=== PATIENT | female | born 1960 | race Caucasian/White ===

== ENCOUNTER 2022-12-06 07:54 | Outpatient (OUT) | payer MEDICARE, MEDICAID, SELFPAY ==
[2022-12-06 14:51] LABS: Lactate Dehydrogenase 191 U/L (81-234)
[2022-12-06 15:21] LABS: Percent Iron Saturation 13.4 %
[2022-12-07 05:07] LABS: Haptoglobin 102 mg/dL (33-346)
[2022-12-07 15:09] LABS: Hgb A 97.5 % (96.4-98.8); Hgb A2 2.5 % (1.8-3.2)
[2022-12-14] MEDS: HEPARIN SODIUM (PORCINE) PF LOCK FLUSH 500 UNIT/5 ML SYRINGE IV (14:20)
[2023-08-14 13:21] LABS: Reticulocyte Count 1.95 % (0.60-3.10)
== END 2022-12-06 07:55 ==
LOC: INF 07:54
PROVIDERS: PCP Family Medicine; Visit Provider Internal Medicine Hematology & Oncology
DX: E87.1 Hypo-osmolality and hyponatremia (principal); I12.9 Hypertensive chronic kidney disease with stage 1 through stage 4 chronic kidney disease, or unspecified chronic kidney disease; N18.9 Chronic kidney disease, unspecified; D63.1 Anemia in chronic kidney disease
CPT/HCPCS: 36415; 80048; 80053; 82607; 82728; 83010; 83540; 83550; 83615; 83735; 83930; 84100; 85025; 85045; G0463

== ENCOUNTER 2022-12-06 13:25 | Outpatient (REF) | payer MEDICARE, MEDICAID, SELFPAY ==
[2022-12-06 14:52] LABS: Alanine Aminotransferase 25 U/L (14-59); Albumin Globulin Ratio 1.1; Albumin Level 3.9 g/dL (3.4-5.0); Alkaline Phosphatase 139 U/L (46-116); Anion Gap 15.9; Aspartate Amino Transferase 29 U/L (15-37); BUN Creatinine Ratio 22.3; Bilirubin Total 0.3 mg/dL (0.2-1.0); Calcium 8.2 mg/dL (8.5-10.1); Carbon Dioxide 24.6 mmol/L (21.0-32.0); Chloride 94 mmol/L (98-107); Estimated GFR (African America 23 (>=60); Estimated GFR (Non-African Ame 19 (>=60); Globulin 3.5 g/dL; Glucose 90 mg/dL (74-106); Potassium 4.5 mmol/L (3.5-5.1); Sodium 130 mmol/L (136-145); Total Protein 7.4 g/dL (6.4-8.2)
[2022-12-06 14:54] LABS: Basophils Percent Auto 0.4 % (0.2-2.0); Eosinophils Absolute Auto 0.2 10^3/uL (0.0-0.7); Eosinophils Percent Auto 1.8 % (0.9-7.0); Hematocrit 33.2 % (36.0-48.0); Hemoglobin 10.6 g/dL (12.0-16.0); Immature Granulocytes Abs Auto 0.05 10^3/uL (0.00-0.03); Immature Granulocytes Pct Auto 0.5 % (0.0-0.5); Lymphocytes Absolute Auto 1.6 10^3/uL (1.2-3.8); Lymphocytes Percent Auto 16.4 % (20.5-60.0); Mean Corpuscular HGB Conc 31.9 g/dL (29.9-35.2); Mean Corpuscular Hemoglobin 29.5 pg (26.7-34.0); Mean Corpuscular Volume 92.5 fL (81.0-99.0); Mean Platelet Volume 9.4 fL (9.5-13.5); Monocytes Absolute Auto 0.6 10^3/uL (0.3-0.8); Monocytes Percent Auto 5.8 % (1.7-12.0); Neutrophils Absolute Auto 7.4 10^3/uL (1.4-6.5); Neutrophils Percent Auto 75.1 % (43.0-75.0); Platelet Count 302 10^3/uL (150-450); Red Blood Count 3.59 10^6/uL (4.20-5.40); Red Cell Distribution Width 14.7 % (11.0-15.0); White Blood Count 9.8 10^3/uL (4.0-11.0)
[2022-12-07 09:40] LABS: Magnesium 2.2 mg/dL (1.8-2.4)
[2022-12-07 10:10] LABS: Phosphorus 7.5 mg/dL (2.6-4.7)
== END 2022-12-06 13:26 ==
LOC: LAB 13:25
PROVIDERS: PCP Family Medicine; Visit Provider Family Medicine
DX: E87.1 Hypo-osmolality and hyponatremia (principal); D64.9 Anemia, unspecified; I12.9 Hypertensive chronic kidney disease with stage 1 through stage 4 chronic kidney disease, or unspecified chronic kidney disease; N18.9 Chronic kidney disease, unspecified
CPT/HCPCS: 36415; 80053; 85025

== ENCOUNTER 2022-12-08 10:56 | Outpatient (OUT) | payer MEDICARE, MEDICAID, SELFPAY ==
--- NOTE | 2022-12-08 11:21 | PM.CN ---
Consult Note: HPI Data of Consult Patient: known to practice within the last 3 years Consult date: 12/08/22 Requesting Physician: SANTOS ROUSSEAU NP Primary Care Provider: Yuri Godinez MD Consult Narrative Reason for consult: low back pain Narrative: Patient is here for f/u of second dx MBB bilat L4/5, L5/S1 done 11/22/22 . She had 100% relief for several hours after procedure. She would like to proceed with RFA of same area. All meds prescribed and managed through PCP. No new sensorimotor or bowel or bladder issues. No adverse medication SE. Medication regimen assists patient in ability to complete ADLs. JAYLEN-49. We reviewed knee and hip xrays taken since last visit and discussed option to do knee injection. We can explore this after RFA. No radicular sx. cc:: CC: SANTOS ROUSSEAU NP Review of Systems ROS Status of ROS 10 or more systems reviewed and unremarkable except as noted in history and below Musculoskeletal Reports: back pain Exam Constitutional Documenting provider has reviewed patient's vital signs: yes Common normals: no apparent distress, average body habitus, oriented x3, healthy appearing, alert and well nourished General appearance: cooperative, comfortable and well developed Orientation/consciousness: Yes awake, Yes oriented to person and Yes oriented to place HENME Common normals: normocephalic, nasal mucous membranes and turbinates normal and moist oral mucous membranes Respiratory Common normals: normal respiratory effort, no retractions and no use of accessory muscles Effort & inspection: able to speak in complete sentences and symmetric chest movement Back & Pelvis Lumbar spine/lower back: normal to inspection, ROM limited, pain with ROM, paraspinal muscle tenderness and paraspinal muscle spasm Other: positive facet loading bilat muscle strength 4/5 bilat LE with intact sensation Extremity Common normals: normal to inspection, full ROM, normal capillary refill and no pedal edema Assessment and Plan Assessment and Plan (1) Lumbar spondylosis: (2) Muscle spasm: (3) Knee osteoarthritis: Plan thermal bilat RFA L4/5, L5/S1 with sedation aquatic therapy
== END 2022-12-08 10:57 ==
LOC: PM 10:58
PROVIDERS: PCP Family Medicine; Visit Provider Nurse Practitioner
DX: M47.816 Spondylosis without myelopathy or radiculopathy, lumbar region (principal); M62.838 Other muscle spasm; M17.9 Osteoarthritis of knee, unspecified
CPT/HCPCS: G0463

== ENCOUNTER 2022-12-14 13:01 | Outpatient (RCR) | payer MEDICARE, MEDICAID, SELFPAY | END 2023-01-31 17:01 | disposition home or self-care (01) | LOC: PT 13:01 | PROVIDERS: PCP Family Medicine; Visit Provider Nurse Practitioner | DX: M47.816 Spondylosis without myelopathy or radiculopathy, lumbar region (principal) | CPT/HCPCS: 97113; 97163 ==

== ENCOUNTER 2022-12-14 13:30 | Outpatient (RCR) | payer MEDICARE, MEDICAID, SELFPAY ==
[2022-12-01 11:02] LABS: Basophils Percent Auto 0.7 % (0.2-2.0); Eosinophils Absolute Auto 0.2 10^3/uL (0.0-0.7); Hematocrit 32.5 % (36.0-48.0); Hemoglobin 10.5 g/dL (12.0-16.0); Immature Granulocytes Abs Auto 0.02 10^3/uL (0.00-0.03); Immature Granulocytes Pct Auto 0.3 % (0.0-0.5); Lymphocytes Absolute Auto 1.1 10^3/uL (1.2-3.8); Lymphocytes Percent Auto 17.4 % (20.5-60.0); Mean Corpuscular HGB Conc 32.3 g/dL (29.9-35.2); Mean Corpuscular Hemoglobin 29.7 pg (26.7-34.0); Mean Corpuscular Volume 92.1 fL (81.0-99.0); Monocytes Absolute Auto 0.5 10^3/uL (0.3-0.8); Monocytes Percent Auto 8.8 % (1.7-12.0); Neutrophils Absolute Auto 4.2 10^3/uL (1.4-6.5); Neutrophils Percent Auto 69.8 % (43.0-75.0); Platelet Count 343 10^3/uL (150-450); Red Blood Count 3.53 10^6/uL (4.20-5.40); Red Cell Distribution Width 15.4 % (11.0-15.0)
[2022-12-01 11:25] LABS: Alanine Aminotransferase 25 U/L (14-59); Albumin Globulin Ratio 0.9; Albumin Level 3.4 g/dL (3.4-5.0); Alkaline Phosphatase 133 U/L (46-116); Anion Gap 13.5; Aspartate Amino Transferase 28 U/L (15-37); BUN Creatinine Ratio 32.4; Bilirubin Total 0.2 mg/dL (0.2-1.0); Calcium 9.1 mg/dL (8.5-10.1); Carbon Dioxide 28.9 mmol/L (21.0-32.0); Chloride 94 mmol/L (98-107); Estimated GFR (African America 46 (>=60); Estimated GFR (Non-African Ame 38 (>=60); Globulin 3.6 g/dL; Glucose 100 mg/dL (74-106); Potassium 5.4 mmol/L (3.5-5.1); Sodium 131 mmol/L (136-145)
--- NOTE | 2022-12-01 11:48 | PC.NURSE ---
1010: Pt to [facility] amb. per self. Seated in recliner. Denies c/o. Using sterile technique, #19guage Stovall needle used to access right anterior chest port. Pt. c/o immediate pain with flushing. Stovall needle removed. Pt. stated she had a cardiac cath. yesterday and they had issues with it and couldn't access it. Blood drawn peripherally for ordered lab work. Pt. tolerated with no c/o pain or discomfort. 1027: Pt. d/c'd amb to home.
[2022-12-14 14:15] VITALS: BP 131/82; PULSE 89; RESP 16; TEMP 36.9; O2SAT 95
[2022-12-14 15:24] LABS: Alanine Aminotransferase 24 U/L (14-59); Albumin Level 3.5 g/dL (3.4-5.0); Alkaline Phosphatase 129 U/L (46-116); Anion Gap 12.4; Aspartate Amino Transferase 27 U/L (15-37); BUN Creatinine Ratio 41.4; Bilirubin Total 0.3 mg/dL (0.2-1.0); Calcium 9.1 mg/dL (8.5-10.1); Carbon Dioxide 29.4 mmol/L (21.0-32.0); Chloride 93 mmol/L (98-107); Estimated GFR (African America 42 (>=60); Estimated GFR (Non-African Ame 35 (>=60); Globulin 3.4 g/dL; Glucose 87 mg/dL (74-106); Potassium 4.8 mmol/L (3.5-5.1); Sodium 130 mmol/L (136-145); Total Protein 6.9 g/dL (6.4-8.2)
[2022-12-14 15:28] LABS: Basophils Percent Auto 0.3 % (0.2-2.0); Eosinophils Absolute Auto 0.2 10^3/uL (0.0-0.7); Eosinophils Percent Auto 2.4 % (0.9-7.0); Hematocrit 29.5 % (36.0-48.0); Hemoglobin 9.6 g/dL (12.0-16.0); Immature Granulocytes Abs Auto 0.02 10^3/uL (0.00-0.03); Immature Granulocytes Pct Auto 0.3 % (0.0-0.5); Lymphocytes Absolute Auto 1.5 10^3/uL (1.2-3.8); Lymphocytes Percent Auto 23.4 % (20.5-60.0); Mean Corpuscular HGB Conc 32.5 g/dL (29.9-35.2); Mean Corpuscular Hemoglobin 29.4 pg (26.7-34.0); Mean Corpuscular Volume 90.2 fL (81.0-99.0); Mean Platelet Volume 9.8 fL (9.5-13.5); Monocytes Absolute Auto 0.6 10^3/uL (0.3-0.8); Monocytes Percent Auto 8.4 % (1.7-12.0); Neutrophils Absolute Auto 4.3 10^3/uL (1.4-6.5); Neutrophils Percent Auto 65.2 % (43.0-75.0); Platelet Count 224 10^3/uL (150-450); Red Blood Count 3.27 10^6/uL (4.20-5.40); Red Cell Distribution Width 14.3 % (11.0-15.0); White Blood Count 6.6 10^3/uL (4.0-11.0)
--- NOTE | 2022-12-14 16:09 | PC.NURSE ---
1415: Pt. to [facility] amb. per self. Seated in recliner. VSS. Using sterile technique, #19 guage Stovall needle used to access right ant. chest port. Flushes easily with immediate blood return. Blood drawn from port for ordered labs. Flushed with saline and Heparin flush. Port de-accessed. Small amount of bleeding to site. Covered and secured with sterile 2x2. Pt. tolerated with minimal c/o discomfort. 1435: Pt. d/c'd amb. to home.
== END 2022-12-23 23:59 | disposition home or self-care (01) ==
LOC: INF 13:30
PROVIDERS: PCP Family Medicine; Visit Provider Family Medicine
DX: I10 Essential (primary) hypertension (principal); E87.1 Hypo-osmolality and hyponatremia; D64.9 Anemia, unspecified; N28.9 Disorder of kidney and ureter, unspecified
CPT/HCPCS: 36415; 36591; 80053; 82607; 82728; 83010; 83540; 83550; 83615; 83735; 83930; 84100; 85025; 85045

== ENCOUNTER 2022-12-20 07:42 | Outpatient (OUT) | payer MEDICARE, MEDICAID, SELFPAY ==
[2022-12-20] MEDS: HEPARIN SODIUM (PORCINE) PF LOCK FLUSH 500 UNIT/5 ML SYRINGE IV (13:45)
--- NOTE | 2022-12-20 14:14 | PC.NURSE ---
1340: Pt. to [facility] amb. accompanied by . Pt. completed visit with Dr. Rae. Seated in recliner. Using sterile technique, right ant. chest port accessed using #19guage Stovall needle. Flushes easily with immediate blood return. Blood drawn for labs. Port flushed with saline and Heparin. Port de-accessed. Site covered with sterile 2x2 dressing. Pt. tolerated with minimal c/o. 1355: Pt. d/c'd amb to home with .
[2022-12-20 14:15] LABS: Basophils Percent Auto 0.4 % (0.2-2.0); Eosinophils Absolute Auto 0.1 10^3/uL (0.0-0.7); Eosinophils Percent Auto 1.1 % (0.9-7.0); Hematocrit 32.1 % (36.0-48.0); Hemoglobin 10.2 g/dL (12.0-16.0); Immature Granulocytes Abs Auto 0.02 10^3/uL (0.00-0.03); Immature Granulocytes Pct Auto 0.4 % (0.0-0.5); Lymphocytes Absolute Auto 0.9 10^3/uL (1.2-3.8); Lymphocytes Percent Auto 14.9 % (20.5-60.0); Mean Corpuscular HGB Conc 31.8 g/dL (29.9-35.2); Mean Corpuscular Hemoglobin 29.1 pg (26.7-34.0); Mean Corpuscular Volume 91.7 fL (81.0-99.0); Mean Platelet Volume 9.3 fL (9.5-13.5); Monocytes Absolute Auto 0.3 10^3/uL (0.3-0.8); Monocytes Percent Auto 5.6 % (1.7-12.0); Neutrophils Absolute Auto 4.4 10^3/uL (1.4-6.5); Neutrophils Percent Auto 77.6 % (43.0-75.0); Platelet Count 261 10^3/uL (150-450); Red Cell Distribution Width 14.2 % (11.0-15.0); White Blood Count 5.7 10^3/uL (4.0-11.0)
[2022-12-20 15:12] LABS: Alanine Aminotransferase 23 U/L (14-59); Albumin Globulin Ratio 1.1; Albumin Level 3.4 g/dL (3.4-5.0); Alkaline Phosphatase 133 U/L (46-116); Anion Gap 10.9; Aspartate Amino Transferase 26 U/L (15-37); Bilirubin Total 0.3 mg/dL (0.2-1.0); Calcium 8.6 mg/dL (8.5-10.1); Carbon Dioxide 28.6 mmol/L (21.0-32.0); Chloride 96 mmol/L (98-107); Estimated GFR (African America 46 (>=60); Estimated GFR (Non-African Ame 38 (>=60); Globulin 3.2 g/dL; Glucose 99 mg/dL (74-106); Magnesium 1.6 mg/dL (1.8-2.4); Phosphorus 4.7 mg/dL (2.6-4.7); Potassium 4.5 mmol/L (3.5-5.1); Sodium 131 mmol/L (136-145); Total Protein 6.6 g/dL (6.4-8.2)
== END 2022-12-20 07:43 | disposition home or self-care (01) ==
LOC: INF 07:42
PROVIDERS: PCP Family Medicine; Visit Provider Internal Medicine Hematology & Oncology
DX: N18.9 Chronic kidney disease, unspecified (principal); D63.1 Anemia in chronic kidney disease; K90.9 Intestinal malabsorption, unspecified
CPT/HCPCS: 36415; 36591; 80053; 83735; 83930; 84100; 85025; G0463

== ENCOUNTER 2022-12-23 10:01 | Outpatient (OUT) | payer MEDICARE, MEDICAID, SELFPAY ==
--- NOTE | 2022-12-23 | VEIN_ITS ---
[address] [address] Patient Name: JOSE CLEMENTS MRN: [id number] date: 1960 Sex: F Assigned Patient Location: Current Patient Location: Accession/Order Number: [id number] Exam Date: 12/23/2022 10:05 Report Date: 12/23/2022 12:33 At the request of: ANGLE SANTANA Procedure: VC Arterial Scan Lloyd EXAM: VC Arterial Scan Lloyd HISTORY: Localized Edema R60.0 COMPARISON: None. TECHNIQUE: A scale, color and Doppler ultrasound FINDINGS: Region: Bilateral legs Atherosclerosis: None Flow: Normal Wave form: Normal triphasic waveform throughout IMPRESSION: Normal exam. No flow significant stenosis, occlusion or aneurysm observed Electronically authenticated by: CARLOS ALCALA Date: 12/23/2022 12:33
--- NOTE | 2022-12-23 | VEIN_ITS ---
Patient: JOSE CLEMENTS Exam Date: 12/23/2022 : 1960 Gender:F Ordering : DR ANGLE SANTANA . Admission #: [id number] Family : Order #: [id number] CLICK HERE TO VIEW EXAM RADIOLOGY REPORT PROCEDURE: VC EXT VENOUS REFLUX GUMARO LMTD COMPARISON: None. INDICATIONS: Localized Edema R60.0 TECHNIQUE: Duplex imaging of the lower extremity to assess the deep and superficial venous system for the presence of deep or superficial venous incompetence and to document the location and severity of disease. The study includes evaluation of the great saphenous vein (GSV), anterior accessory saphenous vein (AASV) and small saphenous vein (SSV). Patient scanned in reverse Trendelenburg and standing. FINDINGS: RIGHT LOWER EXTREMITY: Saphenofemoral Junction Reflux: Yes 10.2mm 2.1 sec GSV: Diam (mm) Reflux/ Time (sec) Proximal Thigh 8.4 Yes 0.8 Mid Thigh 6.2 Yes 1.3 Distal Thigh 5.1 Yes 0.2 Prox Calf 3.8 Yes 0.3 Mid Calf 0.9 Yes 0.3 Saphenopopliteal Junction Reflux: 1.7mm Yes 0.4 SSV: Proximal Calf 1.1 Yes 0.3 Mid Calf 2.6 Yes 0.2 AASV: Proximal Thigh 5.7 Yes 1.5 Mid Thigh 4.9 Yes 0.3 Distal Thigh Thrombi: No acute or chronic thrombus. Compressibility: Normal. Flow: Moderate deep venous reflux. Preforator: Mid medial lower leg 5.0 mm with 1.3s reflux. Tech Note: Incompetent varicose vein proximal medial lower leg measures 3.4 mm with 0.5s reflux. Proximal posterior calf varicose vein measures 3.1 mm with 0.6s reflux. Varicose vein distal lateral thigh measures 4.0mm with 0.5s reflux. LEFT LOWER EXTREMITY: Saphenofemoral Junction Reflux: Yes 9.4 mm 2.4 sec GSV: Diam (mm) Reflux/Time (sec) Proximal Thigh 7.0 Yes 0.9 Mid Thigh 4.5 Yes 1.0 Distal Thigh 2.9 Yes 2.1 Prox Calf 3.1 Yes 0.4 Mid Calf 2.0 Yes 0.4 Saphenopopliteal Junction Relux: 2.7 mm Yes 0.3 SSV: Proximal Calf 3.2 Yes 0.4 Mid Calf 2.6 Yes 0.3 AASV: Proximal Thigh 6.8 Yes 3.4 Mid Thigh 5.4 Yes 1.4 Distal Thigh Thrombi: No acute or chronic thrombus. Compressibility: Normal. Flow: Mild deep venous reflux. Bank Operations Officer: Distal medial lower leg 2.8 mm without reflux. Tech Note: Incompetent varicose vein mid medial lower leg measures 4.0 mm with 0.5s reflux. Medial knee varicose vein measures 5.3 mm with 1.0s reflux. Medial distal thigh varicose vein measures 5.0mm with 0.8s reflux. Varicose vein mid medial calf 4.3 mm with 1.3s reflux. CONCLUSION: 1. Mild right and moderate left great saphenous vein venous insufficiency with dilatation and saphenofemoral junction reflux 2. Mild right and moderate left anterior accessory saphenous vein venous insufficiency dilatation 3. Moderate right and mild left deep vein reflux 4. 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 Bilateral incompetent varicose veins Dictated by: Rojas Rivera MD on 12/23/2022 at 11:56 Approved by: Rojas Rivera MD on 12/23/2022 at 12:31
== END 2022-12-23 10:02 | disposition home or self-care (01) ==
LOC: VC 10:02
PROVIDERS: PCP Family Medicine; Visit Provider Family Medicine
DX: R60.0 Localized edema (principal); I87.2 Venous insufficiency (chronic) (peripheral); I86.8 Varicose veins of other specified sites
CPT/HCPCS: 93925; 93970

== ENCOUNTER 2022-12-28 14:30 | Outpatient (OUT) | payer MEDICARE, MEDICAID, SELFPAY ==
[2022-12-28 15:35] LABS: Basophils Percent Auto 0.6 % (0.2-2.0); Eosinophils Percent Auto 0.8 % (0.9-7.0); Hemoglobin 9.8 g/dL (12.0-16.0); Immature Granulocytes Abs Auto 0.02 10^3/uL (0.00-0.03); Immature Granulocytes Pct Auto 0.4 % (0.0-0.5); Lymphocytes Percent Auto 20.6 % (20.5-60.0); Mean Corpuscular HGB Conc 32.7 g/dL (29.9-35.2); Mean Corpuscular Hemoglobin 29.6 pg (26.7-34.0); Mean Corpuscular Volume 90.6 fL (81.0-99.0); Mean Platelet Volume 9.2 fL (9.5-13.5); Monocytes Absolute Auto 0.5 10^3/uL (0.3-0.8); Monocytes Percent Auto 9.3 % (1.7-12.0); Neutrophils Absolute Auto 3.4 10^3/uL (1.4-6.5); Neutrophils Percent Auto 68.3 % (43.0-75.0); Platelet Count 263 10^3/uL (150-450); Red Blood Count 3.31 10^6/uL (4.20-5.40); Red Cell Distribution Width 14.1 % (11.0-15.0); White Blood Count 4.9 10^3/uL (4.0-11.0)
[2022-12-28 16:01] LABS: Alanine Aminotransferase 23 U/L (14-59); Albumin Globulin Ratio 1.2; Albumin Level 3.6 g/dL (3.4-5.0); Alkaline Phosphatase 136 U/L (46-116); Anion Gap 9.5; Aspartate Amino Transferase 30 U/L (15-37); BUN Creatinine Ratio 29.3; Bilirubin Total 0.4 mg/dL (0.2-1.0); Calcium 8.6 mg/dL (8.5-10.1); Carbon Dioxide 30.3 mmol/L (21.0-32.0); Chloride 97 mmol/L (98-107); Estimated GFR (African America 46 (>=60); Estimated GFR (Non-African Ame 38 (>=60); Glucose 82 mg/dL (74-106); Potassium 3.8 mmol/L (3.5-5.1); Sodium 133 mmol/L (136-145); Total Protein 6.6 g/dL (6.4-8.2)
[2023-01-18 14:45] VITALS: BP 77/41; PULSE 81; RESP 20; TEMP 36.3; O2SAT 99
[2023-01-18 15:43] LABS: Basophils Percent Auto 0.4 % (0.2-2.0); Eosinophils Absolute Auto 0.2 10^3/uL (0.0-0.7); Eosinophils Percent Auto 2.7 % (0.9-7.0); Hematocrit 28.9 % (36.0-48.0); Hemoglobin 9.4 g/dL (12.0-16.0); Immature Granulocytes Abs Auto 0.03 10^3/uL (0.00-0.03); Immature Granulocytes Pct Auto 0.4 % (0.0-0.5); Lymphocytes Absolute Auto 1.5 10^3/uL (1.2-3.8); Lymphocytes Percent Auto 20.3 % (20.5-60.0); Mean Corpuscular HGB Conc 32.5 g/dL (29.9-35.2); Mean Corpuscular Hemoglobin 30.2 pg (26.7-34.0); Mean Corpuscular Volume 92.9 fL (81.0-99.0); Mean Platelet Volume 9.2 fL (9.5-13.5); Monocytes Absolute Auto 0.7 10^3/uL (0.3-0.8); Monocytes Percent Auto 9.1 % (1.7-12.0); Neutrophils Percent Auto 67.1 % (43.0-75.0); Platelet Count 236 10^3/uL (150-450); Red Blood Count 3.11 10^6/uL (4.20-5.40); Red Cell Distribution Width 14.5 % (11.0-15.0); White Blood Count 7.5 10^3/uL (4.0-11.0)
[2023-01-18] MEDS: HEPARIN SODIUM (PORCINE) PF LOCK FLUSH 500 UNIT/5 ML SYRINGE INJ (16:01)
[2023-01-18 16:05] LABS: Alanine Aminotransferase 21 U/L (14-59); Albumin Globulin Ratio 1.1; Albumin Level 3.3 g/dL (3.4-5.0); Alkaline Phosphatase 104 U/L (46-116); Anion Gap 10.4; Aspartate Amino Transferase 27 U/L (15-37); BUN Creatinine Ratio 27.9; Bilirubin Total 0.4 mg/dL (0.2-1.0); Calcium 8.8 mg/dL (8.5-10.1); Carbon Dioxide 30.5 mmol/L (21.0-32.0); Chloride 92 mmol/L (98-107); Estimated GFR (African America 28 (>=60); Estimated GFR (Non-African Ame 23 (>=60); Globulin 2.9 g/dL; Glucose 114 mg/dL (74-106); Potassium 4.9 mmol/L (3.5-5.1); Sodium 128 mmol/L (136-145); Total Protein 6.2 g/dL (6.4-8.2)
[2023-01-20 11:14] LABS: Calcium, Ionized, Serum 4.9 mg/dL (4.5-5.6)
== END 2022-12-28 15:30 | disposition home or self-care (01) ==
PROVIDERS: PCP Family Medicine; Visit Provider Family Medicine
DX: I12.9 Hypertensive chronic kidney disease with stage 1 through stage 4 chronic kidney disease, or unspecified chronic kidney disease (principal); N18.9 Chronic kidney disease, unspecified; E87.1 Hypo-osmolality and hyponatremia; D50.9 Iron deficiency anemia, unspecified; K90.9 Intestinal malabsorption, unspecified; D63.1 Anemia in chronic kidney disease; Z79.899 Other long term (current) drug therapy; R25.2 Cramp and spasm
CPT/HCPCS: 36415; 36591; 80053; 83930; 85025; 96366; Q0138

== ENCOUNTER 2023-01-11 14:30 | Outpatient (RCR) | payer MEDICARE, MEDICAID, SELFPAY ==
[2023-01-04 14:35] VITALS: BP 166/108; PULSE 79; RESP 18; TEMP 36.3; O2SAT 98
[2023-01-04] MEDS: HEPARIN SODIUM (PORCINE) PF LOCK FLUSH 500 UNIT/5 ML SYRINGE IV (14:58)
[2023-01-04] MEDS: FERUMOXYTOL 510 MG in 0.9 % SODIUM CHLORIDE 100 ML 234 MG IV (14:58)
[2023-01-04 15:32] LABS: Alanine Aminotransferase 24 U/L (14-59); Albumin Globulin Ratio 1.2; Albumin Level 3.5 g/dL (3.4-5.0); Alkaline Phosphatase 133 U/L (46-116); Anion Gap 11.6; Aspartate Amino Transferase 28 U/L (15-37); BUN Creatinine Ratio 20.4; Bilirubin Total 0.3 mg/dL (0.2-1.0); Calcium 8.1 mg/dL (8.5-10.1); Carbon Dioxide 26.9 mmol/L (21.0-32.0); Chloride 93 mmol/L (98-107); Estimated GFR (African America 38 (>=60); Estimated GFR (Non-African Ame 31 (>=60); Glucose 89 mg/dL (74-106); Potassium 4.5 mmol/L (3.5-5.1); Sodium 127 mmol/L (136-145); Total Protein 6.5 g/dL (6.4-8.2)
[2023-01-04 15:43] LABS: Basophils Percent Auto 0.2 % (0.2-2.0); Eosinophils Absolute Auto 0.1 10^3/uL (0.0-0.7); Hematocrit 29.8 % (36.0-48.0); Hemoglobin 9.7 g/dL (12.0-16.0); Immature Granulocytes Abs Auto 0.01 10^3/uL (0.00-0.03); Immature Granulocytes Pct Auto 0.2 % (0.0-0.5); Lymphocytes Absolute Auto 1.5 10^3/uL (1.2-3.8); Lymphocytes Percent Auto 27.6 % (20.5-60.0); Mean Corpuscular HGB Conc 32.6 g/dL (29.9-35.2); Mean Corpuscular Hemoglobin 29.7 pg (26.7-34.0); Mean Corpuscular Volume 91.1 fL (81.0-99.0); Mean Platelet Volume 9.3 fL (9.5-13.5); Monocytes Absolute Auto 0.4 10^3/uL (0.3-0.8); Monocytes Percent Auto 7.8 % (1.7-12.0); Neutrophils Absolute Auto 3.4 10^3/uL (1.4-6.5); Neutrophils Percent Auto 62.2 % (43.0-75.0); Platelet Count 290 10^3/uL (150-450); Red Blood Count 3.27 10^6/uL (4.20-5.40); Red Cell Distribution Width 13.6 % (11.0-15.0); White Blood Count 5.5 10^3/uL (4.0-11.0)
--- NOTE | 2023-01-04 16:08 | PC.NURSE ---
1435: Pt. to [facility] amb. for blood draw and IV iron infusion. VSS. Right ant. chest port accessed with #19 gauge Stovall needle without difficulty. Able to aspirate blood and flushes easily. Blood drawn for labs. IV Feraheme 510mg initiated at this time. Pt. without c/o or needs. 1450: Pt. without change. Denies needs. 1535: IV Feraheme completed. Port flushed with saline and Heparin. Port de-accessed. No bleeding to site. Pt. without s&s of adverse reaction or c/o. Pt. d/c'd amb. to home.
[2023-01-05 12:09] LABS: Calcium, Ionized, Serum 4.5 mg/dL (4.5-5.6)
[2023-01-11] MEDS: FERUMOXYTOL 510 MG in 0.9 % SODIUM CHLORIDE 100 ML 234 MG IV (15:08)
[2023-01-11 15:11] LABS: Basophils Absolute Auto 0.1 10^3/uL (0.0-0.1); Basophils Percent Auto 0.7 % (0.2-2.0); Eosinophils Absolute Auto 0.1 10^3/uL (0.0-0.7); Eosinophils Percent Auto 0.9 % (0.9-7.0); Hematocrit 32.7 % (36.0-48.0); Hemoglobin 10.8 g/dL (12.0-16.0); Immature Granulocytes Abs Auto 0.09 10^3/uL (0.00-0.03); Immature Granulocytes Pct Auto 0.9 % (0.0-0.5); Lymphocytes Absolute Auto 3.4 10^3/uL (1.2-3.8); Lymphocytes Percent Auto 33.4 % (20.5-60.0); Mean Corpuscular Volume 90.8 fL (81.0-99.0); Mean Platelet Volume 8.9 fL (9.5-13.5); Monocytes Absolute Auto 0.7 10^3/uL (0.3-0.8); Monocytes Percent Auto 7.1 % (1.7-12.0); Neutrophils Absolute Auto 5.8 10^3/uL (1.4-6.5); Platelet Count 304 10^3/uL (150-450); Red Cell Distribution Width 13.9 % (11.0-15.0); White Blood Count 10.2 10^3/uL (4.0-11.0)
--- NOTE | 2023-01-11 15:18 | PC.NURSE ---
Port a cath intact l=rt anterior chest, accessed using sterile techniqe, excellent bloodreturn obtained. tolerated well.
[2023-01-11 15:28] VITALS: BP 151/89; PULSE 87; RESP 16; TEMP 36.6; O2SAT 98
[2023-01-11] MEDS: HEPARIN SODIUM (PORCINE) PF LOCK FLUSH 500 UNIT/5 ML SYRINGE IV (15:42)
[2023-01-11 15:50] LABS: Alanine Aminotransferase 24 U/L (14-59); Albumin Globulin Ratio 1.3; Alkaline Phosphatase 113 U/L (46-116); Anion Gap 12.9; Aspartate Amino Transferase 33 U/L (15-37); BUN Creatinine Ratio 23.1; Bilirubin Total 0.4 mg/dL (0.2-1.0); Calcium 9.3 mg/dL (8.5-10.1); Carbon Dioxide 28.8 mmol/L (21.0-32.0); Chloride 92 mmol/L (98-107); Estimated GFR (African America 45 (>=60); Estimated GFR (Non-African Ame 37 (>=60); Globulin 3.1 g/dL; Glucose 96 mg/dL (74-106); Potassium 3.7 mmol/L (3.5-5.1); Sodium 130 mmol/L (136-145); Total Protein 7.1 g/dL (6.4-8.2)
== END 2023-01-23 23:59 | disposition home or self-care (01) ==
LOC: INF 14:30
PROVIDERS: PCP Family Medicine; Visit Provider Internal Medicine Hematology & Oncology
DX: Z79.899 Other long term (current) drug therapy (principal); I10 Essential (primary) hypertension; E87.1 Hypo-osmolality and hyponatremia; D64.9 Anemia, unspecified; N28.9 Disorder of kidney and ureter, unspecified; R25.2 Cramp and spasm
CPT/HCPCS: 36415; 36591; 80053; 82330; 83930; 85025; 96365; 96374; Q0138

== ENCOUNTER 2023-01-16 13:10 | Outpatient (RCR) | payer MEDICARE, MEDICAID, SELFPAY | END 2023-01-31 17:00 | disposition home or self-care (01) | LOC: OT 13:10 | PROVIDERS: PCP Family Medicine; Visit Provider Family Medicine | DX: I89.0 Lymphedema, not elsewhere classified (principal) | CPT/HCPCS: 97140; 97166; 97530 ==

== ENCOUNTER 2023-01-23 14:35 | Observation (INO) | payer MEDICARE, MEDICAID, SELFPAY ==
[2023-01-23] VITALS (31 sets, daily range): BP systolic 90–125; BP diastolic 39–77; PULSE 62–91; RESP 10–22; TEMP 36.4–36.6; O2SAT 55–100; BMI 34.6; BMI 33.8
--- NOTE | 2023-01-23 15:13 | ECG_ITS ---
The [facility] Test Date: 2023-01-23 Pat Name: JOSE CLEMENTS Department: Room: - Gender: Female Slinger Sequins: : 1960 Requested By: ANGLE SANTANA Order Number: [id number] Reading MD: ANGLE SANTANA Measurements Intervals [place] Rate: 82 P: 60 NH: 166 QRS: 17 QRSD: 94 T: 47 QT: 354 QTc: 392 Interpretive Statements 1100 Sinus rhythm 9110 normal ECG No previous ECG available for comparison Electronically Signed On 01-24-2023 5:20:04 EDT by ANGLE SANTANA
--- NOTE | 2023-01-23 15:58 | ECG_ITS ---
The [facility] Test Date: 2023-01-23 Pat Name: JOSE CLEMENTS Department: Room: - Gender: Female Occupational Therapist Aide: : 1960 Requested By: ANGLE SANTANA Order Number: [id number] Reading MD: ANGLE SANTANA Measurements Intervals [place] Rate: 67 P: 56 OK: 170 QRS: 12 QRSD: 100 T: 31 QT: 394 QTc: 409 Interpretive Statements 1100 Sinus rhythm 5222 Moderate voltage criteria for LVH, may be normal variant 9130 borderline ECG Compared to ECG 01/23/2023 15:06:53 Left ventricular hypertrophy now present Electronically Signed On 01-24-2023 5:20:13 EDT by ANGLE SANTANA
--- NOTE | 2023-01-23 16:00 | ED_ITS ---
HPI - General Adult General Chief complaint: Shortness of Breath/Dyspnea Stated complaint: FLUID OVERLOAD-38 LBS. Time Seen by Provider: 01/23/23 15:58 Source: patient Mode of arrival: Wheelchair Limitations: no limitations History of Present Illness HPI narrative: Patient is a 62-year-old female who is presenting with her with chief complaint Of shortness of breath, chest pain/tightness, and fluid overload. Patient states that she's gained approximately 30 pounds in last 2-3 weeks. 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 Llanes. Patient's PCP is Dr. Godinez. Patient's sales strategy manager is Dr. Malcolm. Patient's mother has recently , in this past weekend patient was taking care to 3 small children at home as well. Patient has been on Bumex, doses have been doubled, but is not helping with patient's fluid overload. Patient is stage IV kidney failure, patient most likely will be starting dialysis soon, she does not have a fistula. Patient does have a port to her right upper chest wall. Patient has no fever or chills. Patient main concern is of fluid overload. Patient was told to come to the Emergency Room by Dr. Godinez office to be evaluated, and diuresed with admission to the hospital. Patient has no abdominal pain, nausea or vomiting. Patient states that she cannot put her shoes on any longer, and is starting to have a hard time walking around at home and functioning with activities of daily living secondary to the fluid overload. is at bedside. This has happened to the patient in the past. This is acute on chronic peripheral edema and lymphedema. . All systems are negative except as noted/marked. All systems reviewed and otherwise negative. . Nurses note and vital signs reviewed and patient is not hypoxic. General: The patient appears well and in no apparent distress. Patient is resting uncomfortably on cart. Patient is not toxic, lethargic, or listless Skin: Warm, dry, no pallor noted. There is no rash noted. No petechiae, purpura. Head: Normocephalic, atraumatic Eye: Normal conjunctiva, no drainage, EOMI. PERRL Ears, Nose, Mouth, and Throat: oral mucosa is moist. Nares patent. Mouth without vesicles. Cardiovascular: Regular Rate and Rhythm, no murmur, gallop, rub, No crackles or rales were noted to patient's lung bases or throughout lung nguyen. Respiratory: Patient is in no distress, no accessory muscle use, lungs are clear to auscultation, no wheezing, rales or rhonchi Back: non-tender, no CVA tenderness bilaterally to percussion. No CT LS midline pain GI: soft, Obese,no tenderness to palpation, no masses appreciated. No rebound, guarding, or rigidity noted. No flank pain bilateral, No distention Musculoskeletal: Patient has full range of motion of all of the extremities, no motor, sensory, or focal neurological deficits. 4+ pitting edema to bilateral lower extremities, no significant signs of venous stasis or cellulitis. No unilateral swelling. Patient states her lower extremities are twice if not 3 times the size they normally are secondary to leg swelling. Neurological: A&O x3, normal speech Psychiatric: Cooperative Related Data Home Medications Medication Instructions Recorded Confirmed alprazolam 0.5 mg tablet 0.5 mg PO BID 12/08/22 01/23/23 amitriptyline 150 mg tablet 150 mg PO BEDTIME 12/08/22 01/23/23 calcium acetate(phosphat bind) 667 667 mg PO BID 12/08/22 01/23/23 mg capsule fentanyl 100 mcg/hr transdermal 1 patch transdermal Q72H 12/08/22 01/23/23 patch levothyroxine 100 mcg tablet 100 mcg PO DAILY 12/08/22 01/23/23 linaclotide 290 mcg capsule 290 mcg PO DAILY 12/08/22 01/23/23 (Linzess) liothyronine 25 mcg tablet 25 mcg PO DAILY 12/08/22 01/23/23 metoclopramide HCl 10 mg tablet 10 mg PO QID PRN nausea and 12/08/22 01/23/23 vomiting metoprolol tartrate 50 mg tablet 50 mg PO BID 12/08/22 01/23/23 (Lopressor) ondansetron HCl 4 mg tablet 4 mg PO TID-QID PRN nausea and 12/08/22 01/23/23 vomiting oxycodone-acetaminophen 5 mg-325 1 tab PO Q6H 12/08/22 01/23/23 mg tablet pantoprazole 40 mg tablet,delayed 40 mg PO BID 12/08/22 01/23/23 release primidone 50 mg tablet 100 mg PO BEDTIME 12/08/22 01/23/23 tizanidine 4 mg tablet (Zanaflex) 4 mg PO Q8H 12/08/22 01/23/23 aripiprazole 2 mg tablet (Abilify) 2 mg PO DAILY 01/23/23 01/23/23 bumetanide 1 mg tablet 2 mg PO QDAY 01/23/23 01/23/23 duloxetine 60 mg capsule,delayed 120 mg PO DAILY 01/23/23 01/23/23 release (Cymbalta) loratadine 10 mg tablet (Claritin) 10 mg PO DAILY 01/23/23 01/23/23 sacubitril 97 mg-valsartan 103 mg 1 tab PO BID 01/23/23 01/23/23 tablet (Entresto) Allergies Allergy/AdvReac Type Severity Reaction Status Date / Time povidone-iodine Allergy Intermediate Verified 01/23/23 16:14 [From Betadine] amoxicillin [From Augmentin] Allergy Mild Vomiting Verified 01/23/23 16:14 clavulanic acid Allergy Mild Vomiting Verified 01/23/23 16:14 [From Augmentin] Sulfa (Sulfonamide Allergy Mild Vomiting Verified 01/23/23 16:14 Antibiotics) ciprofloxacin [From Cipro] Allergy Unknown Verified 01/23/23 16:14 [facility] Medical History (Updated 01/23/23 @ 18:47 by Baljinder Meek MD) Surgical History (Updated 01/18/23 @ 11:23 by Chayito Wilson RN) Family History (Updated 01/23/23 @ 18:44 by Audrey Booker) Father Family history of CHF (congestive heart failure) Family history of diabetes mellitus Family history of hypertension Family history of myocardial infarction Family history of stroke Mother Family history of CHF (congestive heart failure) Family history of COPD (chronic obstructive pulmonary disease) Family history of diabetes mellitus Family history of hypertension Family history of myocardial infarction Family history of stroke Social History (Updated 01/23/23 @ 18:46 by Audrey Booker) Within the past year, how often did you have a drink containing alcohol: never Within the past year, how often did you have six or more drinks on one occasion: never Score interpretation: A score less than 3 is consistent with normal alcohol consumption. 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 Highest level of school completed/degree received: some college, no degree Are you now , , , , never or living with a partner: In a typical week, how many times do you talk on the telephone with family, friends, or neighbors: 3 or more times per week How often do you get together with friends or relatives: twice per week How often do you attend anabaptist or mormon services: 4 or more times per year Do you belong to any clubs or organizations such as anabaptist groups unions, [facility] or athletic groups, or school groups: no Total score: 3 Score interpretation: A score of greater than or equal to 2 indicates the lowest level of social isolation. Little interest or pleasure in doing things: not at all Feeling down, depressed, or hopeless: several days Feel stressed/tense/nervous/anxious/difficulty sleeping: to some extent Life stressors: recent of family or friend Do you think of yourself as: straight/heterosexual Gender Identity: female Exam Constitutional Vital Signs, click to edit/add: Last Vital Signs Temp 97.5 F L 01/23/23 18:49 Pulse 71 01/23/23 18:49 Resp 18 01/23/23 18:49 BP 116/77 01/23/23 18:49 Pulse Ox 97 01/23/23 18:49 O2 Del Method Room Air 01/23/23 18:49 Course Vital Signs Vital signs: Vital Signs Temperature 97.8 F 01/23/23 15:00 Pulse Rate 91 H 01/23/23 15:00 Respiratory Rate 20 01/23/23 15:00 Blood Pressure 96/70 01/23/23 15:00 Pulse Oximetry 97 01/23/23 15:00 Oxygen Delivery Method Room Air 01/23/23 15:00 Temperature 97.5 F L 01/23/23 18:49 Pulse Rate 71 01/23/23 18:49 Respiratory Rate 18 01/23/23 18:49 Blood Pressure 116/77 01/23/23 18:49 Pulse Oximetry 97 01/23/23 18:49 Oxygen Delivery Method Room Air 01/23/23 18:49 Medical Decision Making MDM Narrative Medical decision making narrative: Patient was given one dose of IV Lasix 40 mg in the Emergency Room. Patient was sent to the Emergency Room for admission purposes to help diurese the next 2 or 3 days. Patient states that she's gained 30 pounds of water weight in the past 2 or 3 weeks. Patient has known stage IV kidney failure. Patient's. And creatinine are elevated slightly more than normal baseline. Patient's EKG and chest x-ray showed no significant findings. Patient will be admitted for diuresis. Dr. Godinez came in this evening to see the patient in the inpatient floor at approximately 5:30 PM. Lab Data Lab results reviewed: Yes I reviewed the patient's lab results Labs: Lab Results 01/23/23 Range/Units 15:50 WBC 5.6 (4.0-11.0) 10^3/uL RBC 3.07 L (4.20-5.40) 10^6/uL Hgb 9.3 L (12.0-16.0) g/dL Hct 28.9 L (36.0-48.0) % MCV 94.1 (81.0-99.0) fL MCH 30.3 (26.7-34.0) pg MCHC 32.2 (29.9-35.2) g/dL RDW 14.7 (11.0-15.0) % Plt Count 276 (150-450) 10^3/uL MPV 9.0 L (9.5-13.5) fL Neut % (Auto) 62.6 (43.0-75.0) % Lymph % (Auto) 23.5 (20.5-60.0) % [place] % (Auto) 9.9 (1.7-12.0) % Eos % (Auto) 3.1 (0.9-7.0) % Baso % (Auto) 0.5 (0.2-2.0) % Neut # (Auto) 3.5 (1.4-6.5) 10^3/uL Lymph # (Auto) 1.3 (1.2-3.8) 10^3/uL [place] # (Auto) 0.6 (0.3-0.8) 10^3/uL Eos # (Auto) 0.2 (0.0-0.7) 10^3/uL Baso # (Auto) 0.0 (0.0-0.1) 10^3/uL Abs Immat Gran (auto) 0.02 (0.00-0.03) 10^3/uL Imm/Tot Granulo (auto) 0.4 (0.0-0.5) % PT 9.8 (9.0-11.6) sec INR <0.93 APTT 33.0 (22.3-36.2) sec Sodium 125 L (136-145) mmol/L Potassium 4.7 (3.5-5.1) mmol/L Chloride 91 L (98-107) mmol/L Carbon Dioxide 31.1 (21.0-32.0) mmol/L Anion Gap 7.6 BUN 67.0 H (7.0-18.0) mg/dL Creatinine 2.28 H (0.55-1.02) mg/dL Est GFR ( Amer) 26 L (>=60) Est GFR (Non-Af Amer) 22 L (>=60) BUN/Creatinine Ratio 29.4 Glucose 99 (74-106) mg/dL Lactate 0.5 (0.4-2.0) mmol/L Calcium 8.9 (8.5-10.1) mg/dL Total Bilirubin 0.3 (0.2-1.0) mg/dL AST 44 H (15-37) U/L ALT 25 (14-59) U/L Alkaline Phosphatase 110 (46-116) U/L NT-Pro-B Natriuret Pep 840.0 (<=900.0) pg/mL Total Protein 6.4 (6.4-8.2) g/dL Albumin 3.3 L (3.4-5.0) g/dL Globulin 3.1 g/dL Albumin/Globulin Ratio 1.1 Imaging Data Chest x-ray: Radiologist's impression: EXAM: XR chest 1V HISTORY:. shortness of breath . COMPARISON: 11/16/2022 TECHNIQUE: Single view of the chest FINDINGS: Heart and vascularity are unremarkable. Lungs are free of focal infiltrates. Infusion catheter is noted with the tip overlying the superior vena cava. There is linear atelectasis in the left lower lobe. IMPRESSION: [address] 2. No infiltrates noted. 3. Minimal platelike atelectasis in the left lung base ECG Data Attestation: I personally reviewed and interpreted this ECG as follows: Interpretation: EKG #1. Normal sinus rhythm at 82 beats a minute. Normal axis deviation. No acute ST elevation, no acute ectopy. QTC of 392. EKG #2. Normal sinus rhythm at 65 beats a minute. Normal axis deviation. No acute ST elevation, no acute ectopy. QTC of 416. Discharge Plan Discharge Chief Complaint: Shortness of Breath/Dyspnea Clinical Impression: Edema of lower leg due to peripheral venous insufficiency, Dyspnea, Chest pain Patient Disposition: Admitted As Inpatient Condition: Good Discharge Date/Time: 01/23/23 18:45
--- NOTE | 2023-01-23 16:14 | XR_ITS ---
The [address] [address] Patient Name: JOSE CLEMENTS MRN: [id number] date: 1960 Sex: F Assigned Patient Location: ER Current Patient Location: ER Accession/Order Number: [id number] Exam Date: 01/23/2023 16:35 Report Date: 01/23/2023 17:11 At the request of: ELSA HUGHES Procedure: XR chest 1V EXAM: XR chest 1V HISTORY:. shortness of breath . COMPARISON: 11/16/2022 TECHNIQUE: Single view of the chest FINDINGS: Heart and vascularity are unremarkable. Lungs are free of focal infiltrates. Infusion catheter is noted with the tip overlying the superior vena cava. There is linear atelectasis in the left lower lobe. XR/XR chest 1V IMPRESSION: [address] 2. No infiltrates noted. 3. Minimal platelike atelectasis in the left lung base. Electronically authenticated by: CARLOS PANDA Date: 01/23/2023 17:11
--- NOTE | 2023-01-23 16:14 | ECG_ITS ---
The [facility] Test Date: 2023-01-23 Pat Name: JOSE CLEMENTS Department: Room: - Gender: Female Supervisor Of Research: : 1960 Requested By: ANGLE SANTANA Order Number: [id number] Reading MD: ANGLE SANTANA Measurements Intervals [place] Rate: 65 P: 65 ID: [id number] QRS: 32 QRSD: 102 T: 51 QT: 404 QTc: 416 Interpretive Statements 1100 Sinus rhythm 9110 normal ECG Compared to ECG 01/23/2023 15:40:12 Left ventricular hypertrophy no longer present Electronically Signed On 01-24-2023 5:20:19 EDT by ANGLE SANTANA
[2023-01-23 16:25] LABS: Basophils Percent Auto 0.5 % (0.2-2.0); Eosinophils Absolute Auto 0.2 10^3/uL (0.0-0.7); Eosinophils Percent Auto 3.1 % (0.9-7.0); Hematocrit 28.9 % (36.0-48.0); Hemoglobin 9.3 g/dL (12.0-16.0); Immature Granulocytes Abs Auto 0.02 10^3/uL (0.00-0.03); Immature Granulocytes Pct Auto 0.4 % (0.0-0.5); Lymphocytes Absolute Auto 1.3 10^3/uL (1.2-3.8); Lymphocytes Percent Auto 23.5 % (20.5-60.0); Mean Corpuscular HGB Conc 32.2 g/dL (29.9-35.2); Mean Corpuscular Hemoglobin 30.3 pg (26.7-34.0); Mean Corpuscular Volume 94.1 fL (81.0-99.0); Monocytes Absolute Auto 0.6 10^3/uL (0.3-0.8); Monocytes Percent Auto 9.9 % (1.7-12.0); Neutrophils Absolute Auto 3.5 10^3/uL (1.4-6.5); Neutrophils Percent Auto 62.6 % (43.0-75.0); Platelet Count 276 10^3/uL (150-450); Red Blood Count 3.07 10^6/uL (4.20-5.40); Red Cell Distribution Width 14.7 % (11.0-15.0); White Blood Count 5.6 10^3/uL (4.0-11.0)
[2023-01-23 16:32] LABS: Alanine Aminotransferase 25 U/L (14-59); Albumin Globulin Ratio 1.1; Albumin Level 3.3 g/dL (3.4-5.0); Alkaline Phosphatase 110 U/L (46-116); Anion Gap 7.6; Aspartate Amino Transferase 44 U/L (15-37); BUN Creatinine Ratio 29.4; Bilirubin Total 0.3 mg/dL (0.2-1.0); Calcium 8.9 mg/dL (8.5-10.1); Carbon Dioxide 31.1 mmol/L (21.0-32.0); Chloride 91 mmol/L (98-107); Estimated GFR (African America 26 (>=60); Estimated GFR (Non-African Ame 22 (>=60); Globulin 3.1 g/dL; Glucose 99 mg/dL (74-106); Potassium 4.7 mmol/L (3.5-5.1); Sodium 125 mmol/L (136-145); Total Protein 6.4 g/dL (6.4-8.2)
[2023-01-23 16:33] LABS: Prothrombin Time 9.8 sec (9.0-11.6)
[2023-01-23 16:37] LABS: INR <0.93
[2023-01-23 16:46] LABS: Lactate/Lactic Acid 0.5 mmol/L (0.4-2.0)
[2023-01-23] MEDS: FUROSEMIDE 40 MG/4 ML VIAL IVP (17:24)
[2023-01-23] MEDS: ACETAMINOPHEN 500 MG TABLET 1000 MG PO (18:21)
--- NOTE | 2023-01-23 19:24 | P.HP_ITS ---
H&P: HPI History of Present Illness Chief complaint: FLUID OVERLOAD-38 LBS., SOB Narrative: Creasing weakness and shortness of breath secondary to significant weight gain secondary to fluid overload. Patient presented to the emergency room with significant hyponatremia which she has had in the past when she has had her water intoxication. uncertain of following diet recommendations. Patient admitted for treatment. [facility] Medical History (Updated 01/23/23 @ 18:47 by Baljinder Meek MD) Surgical History (Updated 01/18/23 @ 11:23 by Chayito Wilson RN) Family History (Updated 01/23/23 @ 18:44 by Audrey Booker) Father Family history of CHF (congestive heart failure) Family history of diabetes mellitus Family history of hypertension Family history of myocardial infarction Family history of stroke Mother Family history of CHF (congestive heart failure) Family history of COPD (chronic obstructive pulmonary disease) Family history of diabetes mellitus Family history of hypertension Family history of myocardial infarction Family history of stroke Social History (Updated 01/23/23 @ 18:46 by Audrey Booker) Within the past year, how often did you have a drink containing alcohol: never Within the past year, how often did you have six or more drinks on one occasion: never Score interpretation: A score less than 3 is consistent with normal alcohol consumption. 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 Highest level of school completed/degree received: some college, no degree Are you now , , , , never or living with a partner: In a typical week, how many times do you talk on the telephone with family, friends, or neighbors: 3 or more times per week How often do you get together with friends or relatives: twice per week How often do you attend worship or muslim services: 4 or more times per year Do you belong to any clubs or organizations such as worship groups unions, fraternal or athletic groups, or school groups: no Total score: 3 Score interpretation: A score of greater than or equal to 2 indicates the lowest level of social isolation. Little interest or pleasure in doing things: not at all Feeling down, depressed, or hopeless: several days Feel stressed/tense/nervous/anxious/difficulty sleeping: to some extent Life stressors: recent of family or friend Do you think of yourself as: straight/heterosexual Gender Identity: female Meds Home Medications and Allergies Home Medications Medication Instructions Recorded Confirmed Type alprazolam 0.5 mg tablet 0.5 mg PO BID 12/08/22 01/23/23 History amitriptyline 150 mg tablet 150 mg PO BEDTIME 12/08/22 01/23/23 History calcium acetate(phosphat bind) 667 667 mg PO BID 12/08/22 01/23/23 History mg capsule fentanyl 100 mcg/hr transdermal 1 patch transdermal Q72H 12/08/22 01/23/23 History patch levothyroxine 100 mcg tablet 100 mcg PO DAILY 12/08/22 01/23/23 History linaclotide 290 mcg capsule 290 mcg PO DAILY 12/08/22 01/23/23 History (Linzess) liothyronine 25 mcg tablet 25 mcg PO DAILY 12/08/22 01/23/23 History metoclopramide HCl 10 mg tablet 10 mg PO QID PRN nausea and 12/08/22 01/23/23 History vomiting metoprolol tartrate 50 mg tablet 50 mg PO BID 12/08/22 01/23/23 History (Lopressor) ondansetron HCl 4 mg tablet 4 mg PO TID-QID PRN nausea and 12/08/22 01/23/23 History vomiting oxycodone-acetaminophen 5 mg-325 1 tab PO Q6H 12/08/22 01/23/23 History mg tablet pantoprazole 40 mg tablet,delayed 40 mg PO BID 12/08/22 01/23/23 History release primidone 50 mg tablet 100 mg PO BEDTIME 12/08/22 01/23/23 History tizanidine 4 mg tablet (Zanaflex) 4 mg PO Q8H 12/08/22 01/23/23 History aripiprazole 2 mg tablet (Abilify) 2 mg PO DAILY 01/23/23 01/23/23 History bumetanide 1 mg tablet 2 mg PO QDAY 01/23/23 01/23/23 History duloxetine 60 mg capsule,delayed 120 mg PO DAILY 01/23/23 01/23/23 History release (Cymbalta) loratadine 10 mg tablet (Claritin) 10 mg PO DAILY 01/23/23 01/23/23 History sacubitril 97 mg-valsartan 103 mg 1 tab PO BID 01/23/23 01/23/23 History tablet (Entresto) Allergies Allergy/AdvReac Type Severity Reaction Status Date / Time povidone-iodine Allergy Intermediate Verified 01/23/23 16:14 [From Betadine] amoxicillin [From Augmentin] Allergy Mild Vomiting Verified 01/23/23 16:14 clavulanic acid Allergy Mild Vomiting Verified 01/23/23 16:14 [From Augmentin] Sulfa (Sulfonamide Allergy Mild Vomiting Verified 01/23/23 16:14 Antibiotics) ciprofloxacin [From Cipro] Allergy Unknown Verified 01/23/23 16:14 Exam Constitutional Vital Signs, click to edit/add: Last Vital Signs Temp 97.5 F L 01/23/23 18:49 Pulse 71 01/23/23 18:49 Resp 18 01/23/23 18:49 BP 116/77 01/23/23 18:49 Pulse Ox 97 01/23/23 18:49 O2 Del Method Room Air 01/23/23 18:49 Documenting provider has reviewed patient's vital signs: yes Common normals: no apparent distress, average body habitus, oriented x3, healthy appearing, alert and well nourished General appearance: cooperative, comfortable and well developed Orientation/consciousness: Yes awake, Yes oriented to person and Yes oriented to place HENAR Common normals: normocephalic, nasal mucous membranes and turbinates normal and moist oral mucous membranes Respiratory Common normals: normal respiratory effort, no retractions and no use of accessory muscles Effort & inspection: able to speak in complete sentences and symmetric chest movement Back & Pelvis Lumbar spine/lower back: normal to inspection, ROM limited, pain with ROM, paraspinal muscle tenderness and paraspinal muscle spasm Other: positive facet loading bilat muscle strength 4/5 bilat LE with intact sensation Extremity Common normals: normal to inspection, full ROM, normal capillary refill and no pedal edema Results Labs Labs: Short CBC 01/23/23 Range/Units 15:50 WBC 5.6 (4.0-11.0) 10^3/uL Hgb 9.3 L (12.0-16.0) g/dL Hct 28.9 L (36.0-48.0) % Plt Count 276 (150-450) 10^3/uL BMP 01/23/23 15:50 Sodium 125 L Potassium 4.7 Chloride 91 L Carbon Dioxide 31.1 BUN 67.0 H Creatinine 2.28 H Glucose 99 Calcium 8.9 Liver Function 01/23/23 Range/Units 15:50 Total Bilirubin 0.3 (0.2-1.0) mg/dL AST 44 H (15-37) U/L ALT 25 (14-59) U/L Alkaline Phosphatase 110 (46-116) U/L Albumin 3.3 L (3.4-5.0) g/dL Assessment and Plan Assessment and Plan (1) Edema of lower leg due to peripheral venous insufficiency: (2) Dyspnea: (3) Chest pain: (4) Knee osteoarthritis: (5) Lumbar spondylosis: (6) Anxiety: Plan Rest try this, significant peripheral edema with severe increase in weight gain, some chest tightness as well. This is all been related in the past of her significant hyponatremia, typically related to water intoxication, responds well to Bumex drip in the past. We will maintain that again at this time. If excellent diuresis overnight and patient able to ambulate improved tomorrow possible discharge. She typically has a 2 to 3-day hospital stay. Lumbar radiculopathy-pain management. Anxiety-continue with home medications Hypothyroidism-check levels GERD-continue with home medications Hypertension-continue with home medications, Juancho has been beneficial and both were improving her edema as well as her blood pressure Iron deficiency anemia-monitor daily Morbid obesity-diet management
[2023-01-23] MEDS: OMEPRAZOLE 40 MG CAPSULE.DR PO (20:30)
[2023-01-23] MEDS: CALCIUM ACETATE 667 MG CAPSULE PO (20:30)
[2023-01-23] MEDS: ALPRAZOLAM 0.5 MG TABLET PO (20:30)
[2023-01-23] MEDS: METOPROLOL TARTRATE 50 MG TABLET PO (20:31)
[2023-01-23] MEDS: PRIMIDONE 50 MG TABLET 100 MG PO (22:05)
[2023-01-23] MEDS: TIZANIDINE HCL 4 MG TABLET PO (22:06)
[2023-01-23] MEDS: AMITRIPTYLINE HCL 50 MG TABLET 150 MG PO (22:06)
[2023-01-24] VITALS (18 sets, daily range): BP systolic 92–113; BP diastolic 58–75; PULSE 55–101; RESP 16–18; TEMP 36.6–36.8; O2SAT 91–99; BMI 36.2
--- NOTE | 2023-01-24 00:23 | PC.NURSE ---
Upon entry into room noted patient having snoring respirations with eyes closed. Patient earlier asking for pain medication. Medication not given at this time.
[2023-01-24] MEDS: HYDROMORPHONE HCL 0.5 MG/0.5 ML SYRINGE IV ×4 (03:30→20:41)
[2023-01-24 04:09] LABS: Basophils Percent Auto 0.4 % (0.2-2.0); Eosinophils Absolute Auto 0.2 10^3/uL (0.0-0.7); Eosinophils Percent Auto 3.7 % (0.9-7.0); Hematocrit 27.1 % (36.0-48.0); Hemoglobin 8.8 g/dL (12.0-16.0); Immature Granulocytes Abs Auto 0.03 10^3/uL (0.00-0.03); Immature Granulocytes Pct Auto 0.6 % (0.0-0.5); Lymphocytes Absolute Auto 1.4 10^3/uL (1.2-3.8); Mean Corpuscular HGB Conc 32.5 g/dL (29.9-35.2); Mean Corpuscular Hemoglobin 30.7 pg (26.7-34.0); Mean Corpuscular Volume 94.4 fL (81.0-99.0); Mean Platelet Volume 9.1 fL (9.5-13.5); Monocytes Absolute Auto 0.5 10^3/uL (0.3-0.8); Monocytes Percent Auto 9.9 % (1.7-12.0); Neutrophils Absolute Auto 2.5 10^3/uL (1.4-6.5); Neutrophils Percent Auto 54.4 % (43.0-75.0); Platelet Count 237 10^3/uL (150-450); Red Blood Count 2.87 10^6/uL (4.20-5.40); Red Cell Distribution Width 14.8 % (11.0-15.0); White Blood Count 4.6 10^3/uL (4.0-11.0)
[2023-01-24 04:13] LABS: Anion Gap 9.2; BUN Creatinine Ratio 28.8; Calcium 8.2 mg/dL (8.5-10.1); Carbon Dioxide 32.4 mmol/L (21.0-32.0); Chloride 94 mmol/L (98-107); Estimated GFR (African America 25 (>=60); Estimated GFR (Non-African Ame 20 (>=60); Glucose 87 mg/dL (74-106); Potassium 4.6 mmol/L (3.5-5.1); Sodium 131 mmol/L (136-145)
[2023-01-24] MEDS: TIZANIDINE HCL 4 MG TABLET PO ×3 (05:16→21:25)
[2023-01-24] MEDS: LEVOTHYROXINE SODIUM 100 MCG TABLET PO (05:16)
[2023-01-24] MEDS: LIOTHYRONINE SODIUM 25 MCG TABLET PO (05:16)
[2023-01-24] MEDS: BUMETANIDE 10 MG in 0.9 % SODIUM CHLORIDE 160 ML 2.5 MG IV (06:26)
--- NOTE | 2023-01-24 07:44 | CM.NOTE ---
Rounds made with Dr. Godinez, possible discharge this afternoon.
[2023-01-24] MEDS: CETIRIZINE HCL 10 MG TABLET PO (08:57)
[2023-01-24] MEDS: DULOXETINE HCL 60 MG CAPSULE.DR 120 MG PO (08:57)
[2023-01-24] MEDS: OMEPRAZOLE 40 MG CAPSULE.DR PO ×2 (08:57→21:24)
[2023-01-24] MEDS: CALCIUM ACETATE 667 MG CAPSULE PO ×2 (08:57→17:40)
[2023-01-24] MEDS: ALPRAZOLAM 0.5 MG TABLET PO ×2 (08:57→21:24)
[2023-01-24] MEDS: ARIPIPRAZOLE 2 MG TABLET PO (09:09)
--- NOTE | 2023-01-24 10:42 | P.PN_ITS ---
Progress Note: Subjective Subjective Interval history: Sleepy this morning Exam Constitutional Vital Signs, click to edit/add: Last Vital Signs Temp 98.2 F 01/24/23 05:00 Pulse 60 01/24/23 10:14 Resp 16 01/24/23 05:00 BP 92/58 01/24/23 05:00 Pulse Ox 91 L 01/24/23 06:00 O2 Del Method Room Air 01/24/23 05:00 Documenting provider has reviewed patient's vital signs: yes Common normals: no apparent distress, average body habitus, oriented x3, healthy appearing, alert and well nourished General appearance: cooperative, comfortable and well developed Orientation/consciousness: Yes awake, Yes oriented to person and Yes oriented to place HENMT Common normals: normocephalic, nasal mucous membranes and turbinates normal and moist oral mucous membranes Respiratory Common normals: normal respiratory effort, no retractions and no use of accessory muscles Effort & inspection: able to speak in complete sentences and symmetric chest movement Back & Pelvis Lumbar spine/lower back: normal to inspection, ROM limited, pain with ROM, paraspinal muscle tenderness and paraspinal muscle spasm Other: positive facet loading bilat muscle strength 4/5 bilat LE with intact sensation Extremity Common normals: normal to inspection, full ROM, normal capillary refill and no pedal edema Progress Note: Objective Labs Labs: Short CBC 01/23/23 01/24/23 Range/Units 15:50 03:30 WBC 5.6 4.6 (4.0-11.0) 10^3/uL Hgb 9.3 L 8.8 L (12.0-16.0) g/dL Hct 28.9 L 27.1 L (36.0-48.0) % Plt Count 276 237 (150-450) 10^3/uL BMP 01/23/23 01/24/23 15:50 03:30 Sodium 125 L 131 L Potassium 4.7 4.6 Chloride 91 L 94 L Carbon Dioxide 31.1 32.4 H BUN 67.0 H 70.0 H Creatinine 2.28 H 2.43 H Glucose 99 87 Calcium 8.9 8.2 L Liver Function 01/23/23 Range/Units 15:50 Total Bilirubin 0.3 (0.2-1.0) mg/dL AST 44 H (15-37) U/L ALT 25 (14-59) U/L Alkaline Phosphatase 110 (46-116) U/L Albumin 3.3 L (3.4-5.0) g/dL Progress Note: A&P Assessment and Plan (1) Edema of lower leg due to peripheral venous insufficiency: (2) Dyspnea: (3) Chest pain: (4) Knee osteoarthritis: (5) Lumbar spondylosis: (6) Anxiety: Plan significant peripheral edema with severe increase in weight gain, some chest tightness as well.? This is all been related in the past of her significant hyponatremia, typically related to water intoxication, responds well to Bumex drip in the past.? Reviewing when Bumex drip was given. If patient improved later today and is ambulating safely she can be discharged home in improving condition. Medications see list. Follow-up with me in the office more as needed. Medications will remain the same Lumbar radiculopathy-pain management. Anxiety-continue with home medications Hypothyroidism-check levels GERD-continue with home medications Hypertension-continue with home medications, Juancho has been beneficial and both were improving her edema?as well as her blood pressure Iron deficiency anemia-monitor daily Morbid obesity-diet management Chronic kidney disease-stage II-somewhat down today. Continue to monitor as an outpatient
--- NOTE | 2023-01-24 11:53 | CM.NOTE ---
Medicare Outpatient Observation Notice discussed with pt, pt verbalizes understanding and signs paper. Original given to pt and copy placed on pt's chart.
[2023-01-24] MEDS: ONDANSETRON 4 MG RAPDIS TABLET BUCCAL ×2 (17:40→20:46)
[2023-01-24] MEDS: PRAMIPEXOLE 1 MG TABLET PO (20:40)
[2023-01-24] MEDS: AMITRIPTYLINE HCL 50 MG TABLET 150 MG PO (21:25)
[2023-01-24] MEDS: PRIMIDONE 50 MG TABLET 100 MG PO (21:25)
[2023-01-24] MEDS: METOPROLOL TARTRATE 50 MG TABLET PO (21:25)
[2023-01-25] VITALS (8 sets, daily range): BP systolic 100; BP diastolic 63; PULSE 57–72; RESP 14; TEMP 36.4; O2SAT 93–97
[2023-01-25] MEDS: HYDROMORPHONE HCL 0.5 MG/0.5 ML SYRINGE IV (00:46)
[2023-01-25] MEDS: LEVOTHYROXINE SODIUM 100 MCG TABLET PO (05:23)
[2023-01-25] MEDS: LIOTHYRONINE SODIUM 25 MCG TABLET PO (05:23)
[2023-01-25] MEDS: TIZANIDINE HCL 4 MG TABLET PO (05:23)
[2023-01-25 05:37] LABS: Basophils Percent Auto 0.4 % (0.2-2.0); Eosinophils Absolute Auto 0.2 10^3/uL (0.0-0.7); Eosinophils Percent Auto 3.8 % (0.9-7.0); Hematocrit 28.1 % (36.0-48.0); Hemoglobin 8.9 g/dL (12.0-16.0); Immature Granulocytes Abs Auto 0.03 10^3/uL (0.00-0.03); Immature Granulocytes Pct Auto 0.5 % (0.0-0.5); Lymphocytes Absolute Auto 1.5 10^3/uL (1.2-3.8); Lymphocytes Percent Auto 27.3 % (20.5-60.0); Mean Corpuscular HGB Conc 31.7 g/dL (29.9-35.2); Mean Corpuscular Hemoglobin 30.3 pg (26.7-34.0); Mean Corpuscular Volume 95.6 fL (81.0-99.0); Mean Platelet Volume 9.1 fL (9.5-13.5); Monocytes Absolute Auto 0.5 10^3/uL (0.3-0.8); Monocytes Percent Auto 8.1 % (1.7-12.0); Neutrophils Absolute Auto 3.3 10^3/uL (1.4-6.5); Neutrophils Percent Auto 59.9 % (43.0-75.0); Platelet Count 259 10^3/uL (150-450); Red Blood Count 2.94 10^6/uL (4.20-5.40); Red Cell Distribution Width 14.9 % (11.0-15.0); White Blood Count 5.5 10^3/uL (4.0-11.0)
[2023-01-25 05:53] LABS: Anion Gap 8.1; Carbon Dioxide 32.1 mmol/L (21.0-32.0); Chloride 98 mmol/L (98-107); Estimated GFR (African America 32 (>=60); Estimated GFR (Non-African Ame 26 (>=60); Glucose 128 mg/dL (74-106); Potassium 4.2 mmol/L (3.5-5.1); Sodium 134 mmol/L (136-145)
[2023-01-25] MEDS: ALPRAZOLAM 0.5 MG TABLET PO (08:36)
[2023-01-25] MEDS: DULOXETINE HCL 60 MG CAPSULE.DR 120 MG PO (08:36)
[2023-01-25] MEDS: METOPROLOL TARTRATE 50 MG TABLET PO (08:36)
[2023-01-25] MEDS: ARIPIPRAZOLE 2 MG TABLET PO (08:36)
[2023-01-25] MEDS: OMEPRAZOLE 40 MG CAPSULE.DR PO (08:36)
[2023-01-25] MEDS: CETIRIZINE HCL 10 MG TABLET PO (08:36)
[2023-01-25] MEDS: CALCIUM ACETATE 667 MG CAPSULE PO (08:36)
--- NOTE | 2023-01-25 09:08 | P.DS_ITS ---
DS: Providers Provider Date of admission: 01/23/23 18:35 Primary care physician: Yuri Godinez MD Consults: 01/24/23 10:40 Occupational Therapy Eval and Treat Routine Physical Therapy Eval and Treat Routine DS: Diagnosis Discharge Diagnosis (1) Edema of lower leg due to peripheral venous insufficiency: (2) Dyspnea: (3) Chest pain: (4) Knee osteoarthritis: (5) Lumbar spondylosis: (6) Anxiety: Plan Rest try this, significant peripheral edema with severe increase in weight gain, some chest tightness as well.? This is all been related in the past of her significant hyponatremia, typically related to water intoxication, responds well to Bumex drip in the past.? We will maintain that again at this time.? If excellent diuresis overnight and patient able to ambulate improved tomorrow possible discharge.? She typically has a 2 to 3-day hospital stay. Lumbar radiculopathy-pain management. Anxiety-continue with home medications Hypothyroidism-check levels GERD-continue with home medications Hypertension-continue with home medications, Entresto has been beneficial and both were improving her edema ?as well as her blood pressure Iron deficiency anemia-monitor daily Morbid obesity-diet management DS: Summary Time Spent with Patient Time attestation: Total time spent providing and/or coordinating discharge services: Exam Constitutional Vital Signs, click to edit/add: Last Vital Signs Temp 97.6 F 01/25/23 05:00 Pulse 62 01/25/23 08:12 Resp 14 01/25/23 05:00 BP 100/63 01/25/23 05:00 Pulse Ox 97 01/25/23 08:12 O2 Del Method Room Air 01/25/23 05:00 DS: Data Data Completed and Pending Labs on day of discharge: Labs from last 24 hours 01/25/23 05:00 WBC 5.5 RBC 2.94 L Hgb 8.9 L Hct 28.1 L MCV 95.6 MCH 30.3 MCHC 31.7 RDW 14.9 Plt Count 259 MPV 9.1 L Neut % (Auto) 59.9 Lymph % (Auto) 27.3 [place] % (Auto) 8.1 Eos % (Auto) 3.8 Baso % (Auto) 0.4 Neut # (Auto) 3.3 Lymph # (Auto) 1.5 [place] # (Auto) 0.5 Eos # (Auto) 0.2 Baso # (Auto) 0.0 Abs Immat Gran (auto) 0.03 Imm/Tot Granulo (auto) 0.5 Sodium 134 L Potassium 4.2 Chloride 98 Carbon Dioxide 32.1 H Anion Gap 8.1 BUN 64.0 H Creatinine 1.94 H Est GFR ( Amer) 32 L Est GFR (Non-Af Amer) 26 L BUN/Creatinine Ratio 33.0 Glucose 128 H Calcium 8.0 L Discharge Plan Discharge Disposition: Home, Self-Care Condition: Good Discharge Medications: Continued aripiprazole [Abilify] 2 mg tablet 2 mg PO DAILY bumetanide 1 mg tablet 2 mg PO QDAY loratadine [Claritin] 10 mg tablet 10 mg PO DAILY duloxetine [Cymbalta] 60 mg capsule,delayed release(DR/EC) 120 mg PO DAILY Entresto 97-103 mg tablet 1 tab PO BID pramipexole [Mirapex] 1 mg tablet 1 mg PO DAILY Rx Instructions: PER RETAIL FILL HX - LAST FILLED 01/05/23 #30 FOR A 30 DAY SUPPLY spironolactone [Aldactone] 50 mg tablet 50 mg PO DAILY Rx Instructions: PER RETAIL FILL HX - LAST FILLED 01/13/23 #30 FOR A 30 DAY SUPPLY alprazolam 0.5 mg tablet 0.5 mg PO BID amitriptyline 150 mg tablet 150 mg PO BEDTIME calcium acetate(phosphat bind) 667 mg capsule 667 mg PO BID levothyroxine 100 mcg tablet 100 mcg PO DAILY metoprolol tartrate [Lopressor] 50 mg tablet 50 mg PO BID Linzess 290 mcg capsule 290 mcg PO DAILY metoclopramide HCl 10 mg tablet 10 mg PO QID PRN (Reason: nausea and vomiting) ondansetron HCl 4 mg tablet 4 mg PO TID-QID PRN (Reason: nausea and vomiting) primidone 50 mg tablet 100 mg PO BEDTIME tizanidine [Zanaflex] 4 mg tablet 4 mg PO Q8H fentanyl 100 mcg/hr patch 72 hour 1 patch transdermal Q72H nathalyronine 25 mcg tablet 25 mcg PO DAILY oxycodone-acetaminophen 5-325 mg tablet 1 tab PO Q6H pantoprazole 40 mg tablet,delayed release (DR/EC) 40 mg PO BID Forms: Portal Instructions
--- NOTE | 2023-01-25 10:07 | CM.NOTE ---
Rounds made with Dr. Godinez. Plan for discharge today.
--- NOTE | 2023-01-26 13:56 | CM.DCFOLLOWU ---
Person spoke with: Mabel How are you feeling? terrible pain in my joints How is your pain? I have appt with pain management on the 8th of this month Did you understand your discharge instructions? yes Do you have any questions about your discharge instructions? no Were you given any prescriptions at discharge? no Were you able to get your prescriptions filled? N/A Do you understand how to take your medications as ordered? yes Do you have any questions about your follow up appointment and do you plan to keep your follow up appointment? No I cancelled it with Dr. Herbert mancilla there is nothing he can do for me. Explained the importance of keeping f/u appt and preventative medicine. Is there anything else that you would like to discuss? No Questions/Comments/Concerns/Other:
== END 2023-01-25 10:52 | disposition home or self-care (01) ==
LOC: ER 14:53 → MS 18:47
PROVIDERS: Admitting Provider Family Medicine; Emergency Provider Emergency Medicine; PCP Family Medicine; Visit Provider Family Medicine
DX: E87.1 Hypo-osmolality and hyponatremia (principal); E87.70 Fluid overload, unspecified; I87.2 Venous insufficiency (chronic) (peripheral); I12.9 Hypertensive chronic kidney disease with stage 1 through stage 4 chronic kidney disease, or unspecified chronic kidney disease; N18.4 Chronic kidney disease, stage 4 (severe); F41.9 Anxiety disorder, unspecified; E03.9 Hypothyroidism, unspecified; K21.9 Gastro-esophageal reflux disease without esophagitis; E66.01 Morbid (severe) obesity due to excess calories; D50.9 Iron deficiency anemia, unspecified; M17.10 Unilateral primary osteoarthritis, unspecified knee; M47.26 Other spondylosis with radiculopathy, lumbar region; R06.00 Dyspnea, unspecified; R07.9 Chest pain, unspecified; R60.0 Localized edema; Z79.899 Other long term (current) drug therapy; Z68.36 Body mass index [BMI] 36.0-36.9, adult; Z79.890 Hormone replacement therapy
CPT/HCPCS: 36415; 36591; 71045; 80048; 80053; 83605; 83880; 85025; 85610; 85730; 93005; 94761; 96365; 96366; 96375; 96376; 97161; 99285; G0378; J1170

== ENCOUNTER 2023-02-02 08:08 | Day surgery (SDC) | payer MEDICARE, MEDICAID, SELFPAY ==
[2023-02-02 09:56] VITALS: BP 160/87; PULSE 87; RESP 16; TEMP 36.1; O2SAT 100
[2023-02-02] MEDS: 0.9 % SODIUM CHLORIDE 500 ML IV (10:34)
[2023-02-02] MEDS: BUPIVACAINE HCL 0.25% PF 25 MG/10 ML VIAL 4 ML INJ (10:35)
[2023-02-02] MEDS: LIDOCAINE HCL 2% 400 MG/20 ML MDV 8 ML INJ (10:35)
[2023-02-02] MEDS: METHYLPREDNISOLONE ACETATE 40 MG/ML VIAL INJ (10:35)
[2023-02-02 10:51] VITALS: BP 143/108; PULSE 76; RESP 16; TEMP 36.2; O2SAT 100
[2023-02-02 10:53] VITALS: BP 155/106; PULSE 73; RESP 16; TEMP 36.2; O2SAT 100
[2023-02-02] MEDS: HEPARIN SODIUM (PORCINE) PF LOCK FLUSH 500 UNIT/5 ML SYRINGE INJ (11:00)
--- NOTE | 2023-02-02 11:35 | W.PM.PROCNOT ---
Date of procedure: 02/02/23 Pre-op diagnosis: lumbar spondylosis Post-op diagnosis: same as pre-op Procedure: Right lumbar 4/5, 5/S1 Radiofrequency ablation Under fluoroscopic guidance Rhizotomy was created using radio frequency ablation at 80?C for 90 seconds 1 to 2 lesions created at each site. Post lesioning injection of 2 mL each of 0.25% Marcaine and 2% lidocaine with Depo-Medrol 40mg. 0.5 to 1 mL injected at each site Portacath accessed If Intravenous fluids: NS at KVO Anesthesia Other: MAC Timeout process compliant After informed consent obtained.Patient brought to the procedure room placed in the prone position skin overlying the area was prepped and draped in a sterile fashion using betadine. 25 gauge needle was used to create a skin wheal over each of the targeted areas utilizing 2% lidocaine. A rhizotomy needle with a 10 mm active tip was inserted over each of the anesthetized areas and directed towards each of the medial branches accomplished under fluoroscopic guidance. after encountering the same we had positive sensory stimulation, negative motor stimulation was noted. lesions were then created. Post lesioning, steroid solution was injected needles removed. Patient was transferred to recovery room in stable condition to be discharged home after meeting criteria. Anesthesia: MAC Surgeon: Terry David Condition: stable
== END 2023-02-02 11:14 | disposition home or self-care (01) ==
LOC: SURGOUT 08:11
PROVIDERS: PCP Family Medicine; Visit Provider Anesthesiology Pain Medicine
DX: M47.816 Spondylosis without myelopathy or radiculopathy, lumbar region (principal); I10 Essential (primary) hypertension; E87.1 Hypo-osmolality and hyponatremia
CPT/HCPCS: 36415; 36591; 64635; 64636; 80053; 83930; 85025; J1030; J2704

== ENCOUNTER 2023-02-03 09:37 | Inpatient (IN) | payer MEDICARE, MEDICAID, SELFPAY ==
[2023-02-03] VITALS (11 sets, daily range): BP systolic 117–153; BP diastolic 91–97; PULSE 74–100; RESP 18; TEMP 36.6–37.4; O2SAT 91–100; BMI 30.1
--- NOTE | 2023-02-03 11:47 | SWNOTE1 ---
SW met with pt to discuss dc needs. Pt does live at home with her . Pt voiced she was supposed to go to [place] this weekend for a wedding, but had a headache and her labs were off. Pt lives at home with her , does have a rollator if needed to ambulate. Has been ambulating independently. Pt did just lose her mother a few weeks ago. SW and pt did talk about this. At this time pt has voiced no needs at discharge. SW did review MENDOZA form with pt, pt got a phone call during conversation, SW let her know SW to come back and have pt sign MENDOZA form.
--- NOTE | 2023-02-03 12:56 | XR_ITS ---
The [address] [address] Patient Name: JOSE CLEMENTS MRN: [id number] date: 1960 Sex: F Assigned Patient Location: ICU Current Patient Location: ICU Accession/Order Number: [id number] Exam Date: 02/03/2023 13:20 Report Date: 02/03/2023 14:07 At the request of: ANGLE SANTANA Procedure: XR acute abdomen series EXAMINATION: XR acute abdomen series 02/03/2023 11:04 AM PDT HISTORY: Abd Pain COMPARISONS: Chest x-ray 01/23/2023. Abdominal x-ray 12/04/2021. FINDINGS: Chest findings: Lines/tubes/other: Right-sided central venous catheter terminating in the proximal one third of the SVC. Heart and mediastinum: Stable. Bones: No acute osseous abnormality. Right distal clavicular resection. Lungs: The lungs are clear. There is no evidence of pneumonia or pulmonary edema. Pleura: There is no significant pleural effusion or pneumothorax. Other: None. Abdominal findings: Mild gaseous distention of several loops of small bowel predominantly located in the left lower quadrant. No pneumoperitoneum, pneumatosis, or portal venous gas. Chronic postsurgical changes are present. Dense calcification projecting over the right lower quadrant, similar. Several soft tissue calcifications projecting over the left pelvis, similar. Stool burden is average. XR/XR acute abdomen series IMPRESSION: 1. No acute cardiopulmonary abnormality. 2. Mild gaseous distention of several small bowel loops in the left lower quadrant which could represent ileus versus early small bowel obstruction. Electronically authenticated by: CARTER KNAPP Date: 02/03/2023 14:07
[2023-02-03 13:22] LABS: Basophils Percent Auto 0.5 % (0.2-2.0); Eosinophils Absolute Auto 0.1 10^3/uL (0.0-0.7); Eosinophils Percent Auto 0.6 % (0.9-7.0); Hematocrit 31.5 % (36.0-48.0); Hemoglobin 10.6 g/dL (12.0-16.0); Immature Granulocytes Abs Auto 0.03 10^3/uL (0.00-0.03); Immature Granulocytes Pct Auto 0.3 % (0.0-0.5); Lymphocytes Percent Auto 11.4 % (20.5-60.0); Mean Corpuscular HGB Conc 33.7 g/dL (29.9-35.2); Mean Corpuscular Hemoglobin 30.9 pg (26.7-34.0); Mean Corpuscular Volume 91.8 fL (81.0-99.0); Mean Platelet Volume 8.9 fL (9.5-13.5); Monocytes Absolute Auto 0.6 10^3/uL (0.3-0.8); Monocytes Percent Auto 6.9 % (1.7-12.0); Neutrophils Absolute Auto 7.1 10^3/uL (1.4-6.5); Neutrophils Percent Auto 80.3 % (43.0-75.0); Platelet Count 254 10^3/uL (150-450); Red Blood Count 3.43 10^6/uL (4.20-5.40); Red Cell Distribution Width 14.1 % (11.0-15.0); White Blood Count 8.9 10^3/uL (4.0-11.0)
--- NOTE | 2023-02-03 13:46 | SWNOTE1 ---
SW checked back in to finish review of MENDOZA form. SW completed review of MENDOZA, pt voiced understanding and had no questions. Pt signed form, original given to pt and copy placed on chart.
[2023-02-03 13:47] LABS: Ammonia <10 umol/L (11-32)
[2023-02-03] MEDS: 0.9 % SODIUM CHLORIDE 500 ML 1000 ML IV (13:48)
[2023-02-03] MEDS: ONDANSETRON PF 4 MG/2 ML VIAL IV ×2 (13:51→19:29)
[2023-02-03 13:54] LABS: Lactate/Lactic Acid 0.4 mmol/L (0.4-2.0)
[2023-02-03 13:59] LABS: Alanine Aminotransferase 19 U/L (14-59); Albumin Globulin Ratio 1.2; Albumin Level 3.4 g/dL (3.4-5.0); Alkaline Phosphatase 100 U/L (46-116); Anion Gap 11.8; Aspartate Amino Transferase 19 U/L (15-37); BUN Creatinine Ratio 25.6; Bilirubin Total 0.4 mg/dL (0.2-1.0); Calcium 7.7 mg/dL (8.5-10.1); Carbon Dioxide 26.5 mmol/L (21.0-32.0); Chloride 93 mmol/L (98-107); Estimated GFR (African America 41 (>=60); Estimated GFR (Non-African Ame 34 (>=60); Globulin 2.8 g/dL; Glucose 81 mg/dL (74-106); Magnesium 1.5 mg/dL (1.8-2.4); Potassium 3.3 mmol/L (3.5-5.1); Sodium 128 mmol/L (136-145); Thyroid Stimulating Hormone 0.104 uIU/mL (0.358-3.740); Total Protein 6.2 g/dL (6.4-8.2)
[2023-02-03] MEDS: LACTATED RINGER'S SOLUTION 1,000 ML 100 ML IV (14:27)
[2023-02-03] MEDS: TIZANIDINE HCL 4 MG TABLET PO ×2 (15:27→23:12)
[2023-02-03] MEDS: HYDROMORPHONE HCL 0.5 MG/0.5 ML SYRINGE IV ×2 (15:27→20:23)
[2023-02-03] MEDS: DESVENLAFAXINE SUCCINATE 50 MG TAB.ER.24H PO (23:00)
[2023-02-03] MEDS: ALPRAZOLAM 0.5 MG TABLET PO (23:01)
[2023-02-03] MEDS: CALCIUM ACETATE 667 MG CAPSULE PO (23:01)
[2023-02-03] MEDS: PRAMIPEXOLE 1 MG TABLET PO (23:01)
[2023-02-03] MEDS: SACUBITRIL/VALSARTAN 1 EACH TABLET 3 TAB PO (23:07)
[2023-02-03] MEDS: AMITRIPTYLINE HCL 50 MG TABLET 150 MG PO (23:07)
[2023-02-04] VITALS (22 sets, daily range): BP systolic 105–115; BP diastolic 67–73; PULSE 71–106; RESP 14–18; TEMP 36.6–36.8; O2SAT 92–100
[2023-02-04] MEDS: PRIMIDONE 50 MG TABLET 100 MG PO ×3 (00:30→22:57)
[2023-02-04] MEDS: LACTATED RINGER'S SOLUTION 1,000 ML 100 ML IV ×3 (00:35→20:14)
[2023-02-04] MEDS: ALBUTEROL SULFATE 2.5 MG/3 ML VIAL NEB IH ×3 (05:30→20:04)
[2023-02-04 05:37] LABS: Basophils Percent Auto 0.5 % (0.2-2.0); Eosinophils Absolute Auto 0.1 10^3/uL (0.0-0.7); Immature Granulocytes Abs Auto 0.03 10^3/uL (0.00-0.03); Immature Granulocytes Pct Auto 0.5 % (0.0-0.5); Lymphocytes Absolute Auto 1.6 10^3/uL (1.2-3.8); Lymphocytes Percent Auto 24.5 % (20.5-60.0); Mean Corpuscular HGB Conc 33.3 g/dL (29.9-35.2); Mean Corpuscular Hemoglobin 30.9 pg (26.7-34.0); Mean Corpuscular Volume 92.6 fL (81.0-99.0); Mean Platelet Volume 9.2 fL (9.5-13.5); Monocytes Absolute Auto 0.6 10^3/uL (0.3-0.8); Monocytes Percent Auto 8.7 % (1.7-12.0); Neutrophils Absolute Auto 4.1 10^3/uL (1.4-6.5); Neutrophils Percent Auto 63.8 % (43.0-75.0); Platelet Count 253 10^3/uL (150-450); Red Blood Count 3.24 10^6/uL (4.20-5.40); Red Cell Distribution Width 14.1 % (11.0-15.0); White Blood Count 6.4 10^3/uL (4.0-11.0)
[2023-02-04 05:43] LABS: Anion Gap 10.6; BUN Creatinine Ratio 26.1; Calcium 7.4 mg/dL (8.5-10.1); Carbon Dioxide 26.8 mmol/L (21.0-32.0); Chloride 94 mmol/L (98-107); Estimated GFR (African America 49 (>=60); Estimated GFR (Non-African Ame 40 (>=60); Glucose 63 mg/dL (74-106); Potassium 3.4 mmol/L (3.5-5.1); Sodium 128 mmol/L (136-145)
[2023-02-04] MEDS: LIOTHYRONINE SODIUM 25 MCG TABLET PO (06:56)
[2023-02-04] MEDS: LEVOTHYROXINE SODIUM 100 MCG TABLET PO (06:56)
--- NOTE | 2023-02-04 08:25 | PM.HP ---
H&P: HPI History of Present Illness Chief complaint: DEHYDRATION Narrative: 62 y/o female to ER with nausea, vomiting, and abdominal pain. Over past week c/o increased GI symptoms. Severe nausea and decreased appetite. Worsening migraine and added to nausea. Developed pain in mid and left abdomen. Mild diarrhea. Not eating or drinking much. Severe weakness and concerned of dehydration. Directly admitted by PCP. Started IV fluids. Labs showed low sodium but normal WBC. X-ray abdomen showed ileus. Continues to have symptoms this am. Still nausea and abdominal pain. Continues to have poor appetite. Review of Systems ROS Constitutional Denies: fever, chills or fatigue Cardiovascular Denies: chest pain, palpitations or edema Respiratory Denies: shortness of breath, cough or wheezing Gastrointestinal Reports: abdominal pain, nausea, vomiting and diarrhea Genitourinary Denies: painful urination [facility] Medical History (Updated 02/04/23 @ 08:30 by Branden Thomas MD) Surgical History (Updated 01/18/23 @ 11:23 by Chayito Wilson RN) Family History (Updated 01/23/23 @ 18:44 by Audrey Booker) Father Family history of CHF (congestive heart failure) Family history of diabetes mellitus Family history of hypertension Family history of myocardial infarction Family history of stroke Mother Family history of CHF (congestive heart failure) Family history of COPD (chronic obstructive pulmonary disease) Family history of diabetes mellitus Family history of hypertension Family history of myocardial infarction Family history of stroke Social History (Updated 01/23/23 @ 18:46 by Audrey Booker) Within the past year, how often did you have a drink containing alcohol: never Within the past year, how often did you have six or more drinks on one occasion: never Score interpretation: A score less than 3 is consistent with normal alcohol consumption. 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 Highest level of school completed/degree received: some college, no degree Are you now , , , , never or living with a partner: In a typical week, how many times do you talk on the telephone with family, friends, or neighbors: 3 or more times per week How often do you get together with friends or relatives: twice per week How often do you attend buddhist or voodoo services: 4 or more times per year Do you belong to any clubs or organizations such as buddhist groups unions, fraternal or athletic groups, or school groups: no Total score: 3 Score interpretation: A score of greater than or equal to 2 indicates the lowest level of social isolation. Little interest or pleasure in doing things: not at all Feeling down, depressed, or hopeless: several days Feel stressed/tense/nervous/anxious/difficulty sleeping: to some extent Life stressors: recent of family or friend Do you think of yourself as: straight/heterosexual Gender Identity: female Meds Home Medications and Allergies Home Medications Medication Instructions Recorded Confirmed Type alprazolam 0.5 mg tablet 0.5 mg PO BID 12/08/22 02/03/23 History amitriptyline 150 mg tablet 150 mg PO BEDTIME 12/08/22 02/03/23 History calcium acetate(phosphat bind) 667 667 mg PO BID 12/08/22 02/03/23 History mg capsule fentanyl 100 mcg/hr transdermal 1 patch transdermal Q72H 12/08/22 02/03/23 History patch levothyroxine 100 mcg tablet 100 mcg PO DAILY 12/08/22 02/03/23 History linaclotide 290 mcg capsule 290 mcg PO DAILY 12/08/22 02/03/23 History (Linzess) liothyronine 25 mcg tablet 25 mcg PO DAILY 12/08/22 02/03/23 History metoclopramide HCl 10 mg tablet 10 mg PO QID PRN nausea and 12/08/22 02/03/23 History vomiting metoprolol tartrate 50 mg tablet 50 mg PO BID PRN hypertension 12/08/22 02/03/23 History (Lopressor) ondansetron HCl 4 mg tablet 4 mg PO TID-QID PRN nausea and 12/08/22 02/03/23 History vomiting oxycodone-acetaminophen 5 mg-325 2 tab PO Q6H 12/08/22 02/03/23 History mg tablet pantoprazole 40 mg tablet,delayed 40 mg PO BID 12/08/22 02/03/23 History release primidone 50 mg tablet 100 mg PO BEDTIME 12/08/22 02/03/23 History tizanidine 4 mg tablet (Zanaflex) 4 mg PO Q6H 12/08/22 02/03/23 History aripiprazole 2 mg tablet (Abilify) 2 mg PO DAILY 01/23/23 02/03/23 History bumetanide 1 mg tablet 4 mg PO QDAY 01/23/23 02/03/23 History loratadine 10 mg tablet (Claritin) 10 mg PO DAILY 01/23/23 02/03/23 History sacubitril 97 mg-valsartan 103 mg 1 tab PO BID 01/23/23 02/03/23 History tablet (Entresto) pramipexole 1 mg tablet (Mirapex) 1 mg PO .evening 01/24/23 02/03/23 History spironolactone 50 mg tablet 50 mg PO DAILY PRN swelling 01/24/23 02/03/23 History (Aldactone) albuterol sulfate 2.5 mg/3 mL 2.5 mg inhalation Q4H PRN 02/03/23 02/03/23 History (0.083 %) solution for nebulization bronchospasm [id number]-oyibnuci 1 cap PO Q6H PRN pain 02/03/23 02/03/23 History 50 mg-325 mg-40 mg capsule butorphanol 10 mg/mL nasal spray 1 spray intranasal BID PRN pain 02/03/23 02/03/23 History desvenlafaxine succinate 50 mg 50 mg PO Q24H 02/03/23 02/03/23 History tablet,extended release 24 hr escitalopram oxalate 20 mg tablet 20 mg PO DAILY 02/03/23 02/03/23 History fluticasone furoate 100 1 inh inhalation Q24H 02/03/23 02/03/23 History mcg-vilanterol 25 mcg/dose inhalation powder (Breo Ellipta) Allergies Allergy/AdvReac Type Severity Reaction Status Date / Time povidone-iodine Allergy Intermediate Verified 02/02/23 09:47 [From Betadine] amoxicillin [From Augmentin] Allergy Mild Vomiting Verified 02/02/23 09:47 clavulanic acid Allergy Mild Vomiting Verified 02/02/23 09:47 [From Augmentin] Sulfa (Sulfonamide Allergy Mild Vomiting Verified 02/02/23 09:47 Antibiotics) ciprofloxacin [From Cipro] Allergy Unknown Verified 02/02/23 09:47 Exam Constitutional Vital Signs, click to edit/add: Last Vital Signs Temp 98.3 F 02/04/23 06:00 Pulse 79 02/04/23 07:57 Resp 16 02/04/23 06:00 BP 105/67 02/04/23 06:00 Pulse Ox 99 02/04/23 07:57 O2 Del Method Room Air 02/04/23 06:00 Documenting provider has reviewed patient's vital signs: yes Common normals: no apparent distress, oriented x3 and alert HENMT Common normals: normocephalic Eye Common normals: PERRL and EOMs intact bilaterally Cardio Common normals: regular rate, regular rhythm, no gallops, no murmurs and no rub GI Common normals: soft to palpation Auscultation: normoactive bowel sounds Palpation: tender (TTP lower and left side abdomen); no guarding Extremity Common normals: no pedal edema Results Labs Labs: Short CBC 02/03/23 02/04/23 Range/Units 13:11 04:40 WBC 8.9 6.4 (4.0-11.0) 10^3/uL Hgb 10.6 L 10.0 L (12.0-16.0) g/dL Hct 31.5 L 30.0 L (36.0-48.0) % Plt Count 254 253 (150-450) 10^3/uL BMP 02/03/23 02/04/23 13:11 04:40 Sodium 128 L 128 L Potassium 3.3 L 3.4 L Chloride 93 L 94 L Carbon Dioxide 26.5 26.8 BUN 40.0 H 35.0 H Creatinine 1.56 H 1.34 H Glucose 81 63 L Calcium 7.7 L 7.4 L Liver Function 02/03/23 Range/Units 13:11 Total Bilirubin 0.4 (0.2-1.0) mg/dL AST 19 (15-37) U/L ALT 19 (14-59) U/L Alkaline Phosphatase 100 (46-116) U/L Albumin 3.4 (3.4-5.0) g/dL Imaging Abdominal x-ray: Attestation: I have reviewed the pertinent imaging results. Assessment and Plan Assessment and Plan (1) Ileus: (2) Dehydration: (3) Hyponatremia: (4) Migraine without aura and without status migrainosus, not intractable: (5) HTN (hypertension): (6) COPD (chronic obstructive pulmonary disease): (7) Lumbar spondylosis: (8) Chronic heart failure with preserved ejection fraction (HFpEF): (9) Stage 3a chronic kidney disease (CKD): Plan Continued GI symptoms and ileus on admission. Continue IV fluids. Continue medication for nausea and abdominal pain/cramping. Resumed home medication. Monitor x-ray. Monitor labs and sodium. Start PT for weakness and encourage ambulation. Will need over 2 midnights in hospital.
[2023-02-04] MEDS: CETIRIZINE HCL 10 MG TABLET PO (08:42)
[2023-02-04] MEDS: OMEPRAZOLE 40 MG CAPSULE.DR PO ×2 (08:42→16:28)
[2023-02-04] MEDS: ARIPIPRAZOLE 2 MG TABLET PO (08:43)
[2023-02-04] MEDS: ONDANSETRON PF 4 MG/2 ML VIAL IV ×3 (08:43→21:24)
[2023-02-04] MEDS: ESCITALOPRAM 10 MG TABLET 20 MG PO (08:43)
[2023-02-04] MEDS: SACUBITRIL/VALSARTAN 1 EACH TABLET 3 TAB PO ×2 (08:43→20:16)
[2023-02-04] MEDS: HYDROMORPHONE HCL 0.5 MG/0.5 ML SYRINGE IV ×4 (08:43→22:42)
[2023-02-04] MEDS: CALCIUM ACETATE 667 MG CAPSULE PO ×2 (08:43→20:16)
[2023-02-04] MEDS: ALPRAZOLAM 0.5 MG TABLET PO ×2 (08:43→20:16)
[2023-02-04] MEDS: TIZANIDINE HCL 4 MG TABLET PO ×3 (08:51→20:16)
[2023-02-04] MEDS: BUDESONIDE 0.5 MG/2 ML AMPULE NEB IH ×2 (10:55→20:04)
[2023-02-04] MEDS: PRAMIPEXOLE 1 MG TABLET PO (20:15)
[2023-02-04] MEDS: DESVENLAFAXINE SUCCINATE 50 MG TAB.ER.24H PO (20:15)
[2023-02-04] MEDS: AMITRIPTYLINE HCL 50 MG TABLET 150 MG PO ×2 (20:17→22:57)
[2023-02-05] VITALS (21 sets, daily range): BP systolic 115–165; BP diastolic 60–89; PULSE 76–120; RESP 16–20; TEMP 36.7–37; O2SAT 93–100
[2023-02-05] MEDS: HYDROMORPHONE HCL 0.5 MG/0.5 ML SYRINGE IV ×4 (03:46→19:46)
[2023-02-05] MEDS: ONDANSETRON PF 4 MG/2 ML VIAL IV ×3 (03:50→18:45)
[2023-02-05 04:39] LABS: Basophils Percent Auto 0.4 % (0.2-2.0); Eosinophils Absolute Auto 0.1 10^3/uL (0.0-0.7); Eosinophils Percent Auto 1.6 % (0.9-7.0); Hemoglobin 9.1 g/dL (12.0-16.0); Immature Granulocytes Abs Auto 0.05 10^3/uL (0.00-0.03); Immature Granulocytes Pct Auto 0.7 % (0.0-0.5); Lymphocytes Absolute Auto 1.4 10^3/uL (1.2-3.8); Lymphocytes Percent Auto 20.3 % (20.5-60.0); Mean Corpuscular HGB Conc 32.5 g/dL (29.9-35.2); Mean Corpuscular Hemoglobin 30.5 pg (26.7-34.0); Mean Platelet Volume 9.1 fL (9.5-13.5); Monocytes Absolute Auto 0.6 10^3/uL (0.3-0.8); Monocytes Percent Auto 8.1 % (1.7-12.0); Neutrophils Absolute Auto 4.8 10^3/uL (1.4-6.5); Neutrophils Percent Auto 68.9 % (43.0-75.0); Platelet Count 234 10^3/uL (150-450); Red Blood Count 2.98 10^6/uL (4.20-5.40); Red Cell Distribution Width 14.4 % (11.0-15.0)
[2023-02-05 04:49] LABS: Anion Gap 8.4; BUN Creatinine Ratio 23.7; Carbon Dioxide 26.2 mmol/L (21.0-32.0); Chloride 100 mmol/L (98-107); Estimated GFR (African America >60 (>=60); Estimated GFR (Non-African Ame 59 (>=60); Glucose 95 mg/dL (74-106); Potassium 3.6 mmol/L (3.5-5.1); Sodium 131 mmol/L (136-145)
[2023-02-05] MEDS: LACTATED RINGER'S SOLUTION 1,000 ML 100 ML IV ×2 (05:49→16:17)
--- NOTE | 2023-02-05 06:00 | XR_ITS ---
The [address] [address] Patient Name: JOSE CLEMENTS MRN: [id number] date: 1960 Sex: F Assigned Patient Location: [place] Current Patient Location: Accession/Order Number: [id number] Exam Date: 02/05/2023 06:00 Report Date: 02/05/2023 08:09 At the request of: MARILU STANFORD Procedure: XR abdomen min 2V PROCEDURE: XR abdomen min 2V DATE: 02/05/2023 5:00 AM CDT COMPARISONS: 02/03/2023 CLINICAL INDICATION: 62 years Female Ileus FINDINGS: There is no evidence of free intraperitoneal air. There is moderate to large amount of stool left colon. There is some gas and fluid of the right colon. There is no definite evidence of small bowel distention to suggest bowel obstruction. There is a localized area of small bowel gas in the left lower quadrant, decreased significantly from previous exam. There is no definite evidence of ileus. The stomach is not distended. No abnormal calcifications overlie the abdomen. Abdominal postop changes are identified. Lumbar spine postop changes are again identified XR/XR abdomen min 2V IMPRESSION: Today's abdominal gas pattern is not typical of ileus or developing small bowel obstruction. The distention of small bowel loops in the left lower quadrant is significantly less prominent. There is more stool of the left colon on today's exam. Electronically authenticated by: CAROLINE WALKER Date: 02/05/2023 08:09
[2023-02-05] MEDS: LEVOTHYROXINE SODIUM 100 MCG TABLET PO (06:11)
[2023-02-05] MEDS: OMEPRAZOLE 40 MG CAPSULE.DR PO ×2 (06:11→16:17)
[2023-02-05] MEDS: LIOTHYRONINE SODIUM 25 MCG TABLET PO (06:11)
[2023-02-05] MEDS: CETIRIZINE HCL 10 MG TABLET PO (08:46)
[2023-02-05] MEDS: ALPRAZOLAM 0.5 MG TABLET PO ×2 (08:46→20:59)
[2023-02-05] MEDS: CALCIUM ACETATE 667 MG CAPSULE PO ×2 (08:46→21:00)
[2023-02-05] MEDS: ARIPIPRAZOLE 2 MG TABLET PO (08:46)
[2023-02-05] MEDS: TIZANIDINE HCL 4 MG TABLET PO ×3 (08:46→20:59)
[2023-02-05] MEDS: ESCITALOPRAM 10 MG TABLET 20 MG PO (08:46)
[2023-02-05] MEDS: SACUBITRIL/VALSARTAN 1 EACH TABLET 3 TAB PO ×2 (08:46→20:53)
[2023-02-05] MEDS: ALBUTEROL SULFATE 2.5 MG/3 ML VIAL NEB IH ×2 (11:30→20:18)
[2023-02-05] MEDS: BUDESONIDE 0.5 MG/2 ML AMPULE NEB IH ×2 (11:30→20:18)
--- NOTE | 2023-02-05 11:50 | PM.PN ---
Progress Note: Subjective Subjective Interval history: Patient improved this am. Abdominal pain improved and less nausea. Able to tolerate liquids and small amounts of solids. Trying to increase ambulation. Migraine improved. Afebrile. No emesis or diarrhea. Mild SOB but improved with breathing treatments. No cough. No chest pain or palpitations. Exam Constitutional Vital Signs, click to edit/add: Last Vital Signs Temp 98.5 F 02/05/23 03:55 Pulse 100 H 02/05/23 11:30 Resp 16 02/05/23 03:55 BP 117/76 02/05/23 03:55 Pulse Ox 98 02/05/23 11:31 O2 Del Method Room Air 02/05/23 11:31 O2 Flow Rate 100 02/05/23 11:31 Documenting provider has reviewed patient's vital signs: yes Common normals: no apparent distress, oriented x3 and alert HENMT Common normals: normocephalic Eye Common normals: PERRL and EOMs intact bilaterally Respiratory Common normals: normal respiratory effort and clear to auscultation bilaterally Cardio Common normals: regular rate, regular rhythm, no gallops, no murmurs and no rub GI Auscultation: normoactive bowel sounds Palpation: tender (Mild diffuse TTP); no guarding Extremity Common normals: no pedal edema Progress Note: Objective Labs Labs: Short CBC 02/05/23 Range/Units 03:45 WBC 7.0 (4.0-11.0) 10^3/uL Hgb 9.1 L (12.0-16.0) g/dL Hct 28.0 L (36.0-48.0) % Plt Count 234 (150-450) 10^3/uL BMP 02/05/23 03:45 Sodium 131 L Potassium 3.6 Chloride 100 Carbon Dioxide 26.2 BUN 23.0 H Creatinine 0.97 Glucose 95 Calcium 8.0 L Imaging Abdominal x-ray: Attestation: I have reviewed the pertinent imaging results. Progress Note: A&P Assessment and Plan (1) Ileus: (2) Dehydration: (3) Hyponatremia: (4) Migraine without aura and without status migrainosus, not intractable: (5) HTN (hypertension): (6) COPD (chronic obstructive pulmonary disease): (7) Lumbar spondylosis: (8) Chronic heart failure with preserved ejection fraction (HFpEF): (9) Stage 3a chronic kidney disease (CKD): Plan Symptoms improved this am and x-ray with resolution of ileus. Starting to tolerate PO. Increase liquids and advance diet as tolerated. Increase ambulation. If continues to improve likely able to discharge in am.
[2023-02-05] MEDS: AMITRIPTYLINE HCL 50 MG TABLET 150 MG PO (20:59)
[2023-02-05] MEDS: PRIMIDONE 50 MG TABLET 100 MG PO (20:59)
[2023-02-05] MEDS: PRAMIPEXOLE 1 MG TABLET PO (20:59)
[2023-02-05] MEDS: DESVENLAFAXINE SUCCINATE 50 MG TAB.ER.24H PO (21:01)
[2023-02-06] VITALS (20 sets, daily range): BP systolic 104–150; BP diastolic 70–84; PULSE 69–105; RESP 14–20; TEMP 36.7–36.8; O2SAT 95–100; BMI 30.1
[2023-02-06] MEDS: ONDANSETRON PF 4 MG/2 ML VIAL IV ×3 (01:36→14:51)
[2023-02-06] MEDS: HYDROMORPHONE HCL 0.5 MG/0.5 ML SYRINGE IV ×4 (01:54→20:11)
[2023-02-06] MEDS: LACTATED RINGER'S SOLUTION 1,000 ML 100 ML IV ×3 (02:09→20:11)
[2023-02-06] MEDS: TIZANIDINE HCL 4 MG TABLET PO ×4 (03:31→20:13)
[2023-02-06] MEDS: ALBUTEROL SULFATE 2.5 MG/3 ML VIAL NEB IH ×2 (04:34→16:35)
[2023-02-06 04:57] LABS: Basophils Percent Auto 0.4 % (0.2-2.0); Eosinophils Absolute Auto 0.3 10^3/uL (0.0-0.7); Eosinophils Percent Auto 4.6 % (0.9-7.0); Hemoglobin 8.5 g/dL (12.0-16.0); Immature Granulocytes Abs Auto 0.03 10^3/uL (0.00-0.03); Immature Granulocytes Pct Auto 0.5 % (0.0-0.5); Lymphocytes Absolute Auto 1.3 10^3/uL (1.2-3.8); Lymphocytes Percent Auto 22.8 % (20.5-60.0); Mean Corpuscular HGB Conc 31.5 g/dL (29.9-35.2); Mean Corpuscular Hemoglobin 30.2 pg (26.7-34.0); Mean Corpuscular Volume 96.1 fL (81.0-99.0); Mean Platelet Volume 9.1 fL (9.5-13.5); Monocytes Absolute Auto 0.4 10^3/uL (0.3-0.8); Monocytes Percent Auto 6.9 % (1.7-12.0); Neutrophils Absolute Auto 3.7 10^3/uL (1.4-6.5); Neutrophils Percent Auto 64.8 % (43.0-75.0); Platelet Count 218 10^3/uL (150-450); Red Blood Count 2.81 10^6/uL (4.20-5.40); Red Cell Distribution Width 14.6 % (11.0-15.0); White Blood Count 5.7 10^3/uL (4.0-11.0)
[2023-02-06 05:06] LABS: Anion Gap 9.6; BUN Creatinine Ratio 16.3; Calcium 7.4 mg/dL (8.5-10.1); Carbon Dioxide 24.7 mmol/L (21.0-32.0); Chloride 103 mmol/L (98-107); Estimated GFR (African America >60 (>=60); Estimated GFR (Non-African Ame 54 (>=60); Glucose 134 mg/dL (74-106); Potassium 3.3 mmol/L (3.5-5.1); Sodium 134 mmol/L (136-145)
[2023-02-06] MEDS: OMEPRAZOLE 40 MG CAPSULE.DR PO ×2 (06:10→17:15)
[2023-02-06] MEDS: LEVOTHYROXINE SODIUM 100 MCG TABLET PO (06:10)
[2023-02-06] MEDS: LIOTHYRONINE SODIUM 25 MCG TABLET PO (06:10)
[2023-02-06] MEDS: ESCITALOPRAM 10 MG TABLET 20 MG PO (09:07)
[2023-02-06] MEDS: CETIRIZINE HCL 10 MG TABLET PO (09:07)
[2023-02-06] MEDS: ALPRAZOLAM 0.5 MG TABLET PO ×2 (09:07→20:12)
[2023-02-06] MEDS: ARIPIPRAZOLE 2 MG TABLET PO (09:07)
[2023-02-06] MEDS: SACUBITRIL/VALSARTAN 1 EACH TABLET 3 TAB PO ×2 (09:07→20:11)
[2023-02-06] MEDS: CALCIUM ACETATE 667 MG CAPSULE PO ×2 (09:07→20:12)
--- NOTE | 2023-02-06 11:34 | CM.NOTE ---
Rounds made with Dr. Linares, no discharge today. GI panel to send today, pt c/o liquid stools. Pt also continues with nausea.
--- NOTE | 2023-02-06 12:25 | DIETREC ---
Recommend magic cup with lunch and dinner
--- NOTE | 2023-02-06 19:28 | P.IMPN_ITS ---
Progress Note: A&P Assessment and Plan (1) Ileus: Assessment and Plan: Resolved on XR. No vomiting but still nauseous and anorexia. Poor PO intake. On IVF currently. (2) Dehydration: Assessment and Plan: due to poor PO intake, diarrhea. On IVF. Monitor closely due to hx of CHF. (3) Hyponatremia: Assessment and Plan: Improved. Monitor. Likely hypovolemic hyponatremia. (4) Migraine without aura and without status migrainosus, not intractable: Assessment and Plan: Reasonably controlled but gets GRIFFIN when she throws up. On Fioricet as needed (5) HTN (hypertension): Assessment and Plan: At goal. C/w home meds (6) COPD (chronic obstructive pulmonary disease): Assessment and Plan: Stable. No wheezing. C/w home meds (7) Lumbar spondylosis: Assessment and Plan: Chronic pain, on multiple pain medications for it. Unchanged. (8) Chronic heart failure with preserved ejection fraction (HFpEF): Assessment and Plan: Dehydrated. On IVF for dehydration. (9) Anemia: Assessment and Plan: Chronic unchanged. Stable. No overt bleeding Internal Medicine - PN: Subj Subjective Interval history: Seen and examined. Reports epigastric pain, nausea, poor appetite. Did not eat anything in the morning because of nausea. No vomiting but still has mild diarrhea. No blood in stool Exam Constitutional Vital Signs, click to edit/add: Last Vital Signs Temp 98.2 F 02/06/23 14:00 Pulse 86 02/06/23 17:59 Resp 18 02/06/23 14:00 BP 150/81 H 02/06/23 14:00 Pulse Ox 95 02/06/23 16:38 O2 Del Method Room Air 02/06/23 16:38 O2 Flow Rate 100 02/05/23 11:31 Documenting provider has reviewed patient's vital signs: yes Common normals: no apparent distress and oriented x3 General appearance: ill appearing Other: sick appearing [facility] Common normals: normocephalic and head/scalp atraumatic Head and scalp: normocephalic and atraumatic Eye Common normals: conjunctivae normal and no scleral icterus Conjunctiva: conjunctiva(e) normal Respiratory Common normals: normal respiratory effort and clear to auscultation bilaterally Auscultation: clear to auscultation bilaterally Cardio Common normals: regular rate, regular rhythm, S1 normal heart sound and S2 normal heart sound Rate: regular rate Rhythm: regular rhythm Heart sounds: S1 normal and S2 normal GI Common normals: Normal to inspection, nondistended, normoactive bowel sounds present, soft to palpation and no hepatosplenomegaly Palpation: soft, tender Details: epigastric and no hepatosplenomegaly Extremity Common normals: no clubbing, cyanosis or edema Neuro Common normals: oriented x3, moves all extremities, no focal motor deficits and no sensory deficits noted Psych Psychiatry clinicians, please identify where your Mental Status Exam is documented: Mental Status Exam documented in the separate MSE Common normals: mental status grossly normal, thought process normal, denies hallucinations, denies homicidal ideation and denies suicidal ideation Thought process: normal thought process Internal Medicine - PN: Obj Da Labs Labs: Laboratory Results - last 24 hr 02/06/23 04:35 WBC 5.7 RBC 2.81 L Hgb 8.5 L Hct 27.0 L MCV 96.1 MCH 30.2 MCHC 31.5 RDW 14.6 Plt Count 218 MPV 9.1 L Neut % (Auto) 64.8 Lymph % (Auto) 22.8 [place] % (Auto) 6.9 Eos % (Auto) 4.6 Baso % (Auto) 0.4 Neut # (Auto) 3.7 Lymph # (Auto) 1.3 Carter # (Auto) 0.4 Eos # (Auto) 0.3 Baso # (Auto) 0.0 Abs Immat Gran (auto) 0.03 Imm/Tot Granulo (auto) 0.5 Sodium 134 L Potassium 3.3 L Chloride 103 Carbon Dioxide 24.7 Anion Gap 9.6 BUN 17.0 Creatinine 1.04 H Est GFR ( Amer) >60 Est GFR (Non-Af Amer) 54 L BUN/Creatinine Ratio 16.3 Glucose 134 H Calcium 7.4 L
[2023-02-06] MEDS: PRAMIPEXOLE 1 MG TABLET PO (20:12)
[2023-02-06] MEDS: AMITRIPTYLINE HCL 50 MG TABLET 150 MG PO (20:12)
[2023-02-06] MEDS: DESVENLAFAXINE SUCCINATE 50 MG TAB.ER.24H PO (20:12)
[2023-02-06] MEDS: PRIMIDONE 50 MG TABLET 100 MG PO (20:13)
[2023-02-06 21:49] LABS: Bilirubin Urine NEGATIVE (NEGATIVE); Blood Urine NEGATIVE (NEGATIVE); Clarity Urine CLEAR (CLEAR); Color Urine LT. YELLOW (YELLOW); Glucose Urine UA NEGATIVE (NEGATIVE); Ketones Urine NEGATIVE (NEGATIVE); Leukocyte Esterase Urine NEGATIVE (NEGATIVE); Nitrite Urine NEGATIVE (NEGATIVE); Protein Urine NEGATIVE (NEG/TRACE); Specific Gravity Urine <=1.005 (1.005-1.025); Urobilinogen Urine 0.2 EU/dL (0.2-1.0)
[2023-02-06 21:55] LABS: Sodium Urine Random 53 mmol/L (30-90)
[2023-02-06 21:56] LABS: Bacteria Urine NONE SEEN #/HPF (NONE SEEN); Cast Seen? NONE SEEN #/LPF (NONE SEEN); Crystals Seen? None Seen #/HPF (None Seen); Mucus Urine NONE SEEN (NONE SEEN); RBC Urine 0-2 #/HPF (0-2); Squamous Epithelial Cell Urine RARE #/LPF (NONE/RARE); WBC Urine NONE SEEN #/HPF (NONE SEEN)
[2023-02-07] VITALS (14 sets, daily range): BP systolic 109–172; BP diastolic 71–92; PULSE 69–106; RESP 16–18; TEMP 36.7–36.9; O2SAT 95–100; BMI 30.1
[2023-02-07] MEDS: TIZANIDINE HCL 4 MG TABLET PO ×2 (02:12→23:29)
[2023-02-07 04:42] LABS: Basophils Percent Auto 0.5 % (0.2-2.0); Eosinophils Absolute Auto 0.4 10^3/uL (0.0-0.7); Hematocrit 27.7 % (36.0-48.0); Hemoglobin 8.9 g/dL (12.0-16.0); Immature Granulocytes Abs Auto 0.04 10^3/uL (0.00-0.03); Immature Granulocytes Pct Auto 0.6 % (0.0-0.5); Lymphocytes Absolute Auto 1.4 10^3/uL (1.2-3.8); Lymphocytes Percent Auto 21.7 % (20.5-60.0); Mean Corpuscular HGB Conc 32.1 g/dL (29.9-35.2); Mean Corpuscular Hemoglobin 30.7 pg (26.7-34.0); Mean Corpuscular Volume 95.5 fL (81.0-99.0); Mean Platelet Volume 8.9 fL (9.5-13.5); Monocytes Absolute Auto 0.4 10^3/uL (0.3-0.8); Monocytes Percent Auto 6.7 % (1.7-12.0); Neutrophils Absolute Auto 4.2 10^3/uL (1.4-6.5); Neutrophils Percent Auto 64.5 % (43.0-75.0); Platelet Count 218 10^3/uL (150-450); Red Cell Distribution Width 14.6 % (11.0-15.0); White Blood Count 6.6 10^3/uL (4.0-11.0)
[2023-02-07 04:46] LABS: Anion Gap 12.3; BUN Creatinine Ratio 15.9; Calcium 7.6 mg/dL (8.5-10.1); Carbon Dioxide 23.9 mmol/L (21.0-32.0); Chloride 106 mmol/L (98-107); Estimated GFR (African America >60 (>=60); Estimated GFR (Non-African Ame >60 (>=60); Glucose 82 mg/dL (74-106); Potassium 4.2 mmol/L (3.5-5.1); Sodium 138 mmol/L (136-145)
[2023-02-07] MEDS: LEVOTHYROXINE SODIUM 100 MCG TABLET PO (06:30)
[2023-02-07] MEDS: OMEPRAZOLE 40 MG CAPSULE.DR PO (06:30)
[2023-02-07] MEDS: LIOTHYRONINE SODIUM 25 MCG TABLET PO (06:30)
[2023-02-07] MEDS: LACTATED RINGER'S SOLUTION 1,000 ML 100 ML IV ×2 (06:32→16:12)
[2023-02-07] MEDS: SACUBITRIL/VALSARTAN 1 EACH TABLET 3 TAB PO ×2 (09:15→23:27)
[2023-02-07] MEDS: ARIPIPRAZOLE 2 MG TABLET PO (09:15)
[2023-02-07] MEDS: ALPRAZOLAM 0.5 MG TABLET PO ×2 (09:16→23:28)
[2023-02-07] MEDS: ESCITALOPRAM 10 MG TABLET 20 MG PO (09:16)
[2023-02-07] MEDS: CETIRIZINE HCL 10 MG TABLET PO (09:16)
[2023-02-07] MEDS: CALCIUM ACETATE 667 MG CAPSULE PO ×2 (09:16→23:28)
[2023-02-07 10:13] LABS: Adenovirus F 40/41 NOT DETECTED (NOT DETECTE); Astrovirus NOT DETECTED (NOT DETECTE); Campylobacter NOT DETECTED (NOT DETECTE); Cryptosporidium NOT DETECTED (NOT DETECTE); Cyclospora cayetanensis NOT DETECTED (NOT DETECTE); Entamoeba histolytica NOT DETECTED (NOT DETECTE); Enteroaggregative E.coli NOT DETECTED (NOT DETECTE); Enterotoxigenic E. coli NOT DETECTED (NOT DETECTE); Giardia lamblia NOT DETECTED (NOT DETECTE); Norovirus GI/GII NOT DETECTED (NOT DETECTE); Plesiomonas shigelloides NOT DETECTED (NOT DETECTE); Rotavirus A NOT DETECTED (NOT DETECTE); Salmonella NOT DETECTED (NOT DETECTE); Sapovirus NOT DETECTED (NOT DETECTE); Shiga-like toxin-producing E.C NOT DETECTED (NOT DETECTE); Shigella/Enteroinvasive E.coli NOT DETECTED (NOT DETECTE); Vibrio NOT DETECTED (NOT DETECTE); Vibrio cholerae NOT DETECTED (NOT DETECTE); Yersinia enterocolitica NOT DETECTED (NOT DETECTE)
--- NOTE | 2023-02-07 10:37 | CM.NOTE ---
Rounds made with Dr. Linares, pt continues to have nausea and abdominal pain. Dr. Linares will get CT of abdomen today and awaiting stool sample.
--- NOTE | 2023-02-07 11:11 | P.IMPN_ITS ---
Progress Note: A&P Assessment and Plan (1) Gastroenteritis: Assessment and Plan: Nausea, anorexia, poor PO intake. Continues to non specific generalized abdominal pain. Prior hx of gastric bypass. On Omeprazole for GERD. On zofran, reglan for Nausea/vomiting. Still feels nauseous, little to no appetite. Prior hx of C diff, still has diarrhea but stool sample was never collected. Reiterated to patient not to flush. CT abd/pelvis as persistent non specific pain, poor PO intake, nausea, anorexia, prior hx of gastric bypass If no sig pathology on w/u , then will consult Surgery for possible UGI endoscopy. (2) Dehydration: Assessment and Plan: due to poor PO intake, diarrhea. On IVF. Improving. (3) LEEANN (acute kidney injury): Assessment and Plan: Normal baseline Cr. Resolved with IV hydration (4) Hyponatremia: Assessment and Plan: Resolved now. (5) Migraine without aura and without status migrainosus, not intractable: Assessment and Plan: Reasonably controlled but gets GRIFFIN when she throws up. On Fioricet as needed (6) HTN (hypertension): Assessment and Plan: At goal. C/w home meds (7) Depression: Assessment and Plan: Appears depressed, anxious, has a flat affect. Patient is on Pristiq, amitriptyline, Lexapro. She is also on Abilify. This needs to be addressed as outpatient as she is at v high risk of Serotonin syndrome because of multiple medications with serotonergic effects. (8) COPD (chronic obstructive pulmonary disease): Assessment and Plan: Stable. No wheezing. C/w home meds (9) Lumbar spondylosis: Assessment and Plan: Chronic pain, on multiple pain medications for it. Unchanged. (10) Chronic heart failure with preserved ejection fraction (HFpEF): Assessment and Plan: Dehydrated. On IVF for dehydration. (11) Anemia: Assessment and Plan: Chronic unchanged. Stable. No overt bleeding Internal Medicine - PN: Subj Subjective Interval history: Seen and examined. Reports anorexia, nausea, epigastric abdominal pain, bloating and continues to have liquid stool. She feels malaise, tiredness, and weak. No vomiting but did not feel like eating and had little to no appetite. Exam Constitutional Vital Signs, click to edit/add: Last Vital Signs Temp 98.0 F 02/07/23 04:34 Pulse 106 H 0815/23 10:06 Resp 16 02/07/23 04:34 BP 135/72 02/07/23 04:34 Pulse Ox 98 02/07/23 07:57 O2 Del Method Room Air 02/07/23 04:34 O2 Flow Rate 100 02/05/23 11:31 Documenting provider has reviewed patient's vital signs: yes Common normals: oriented x3 General appearance: cooperative, comfortable and ill appearing HENNC Common normals: normocephalic and head/scalp atraumatic Respiratory Common normals: normal respiratory effort, no use of accessory muscles and clear to auscultation bilaterally Cardio Common normals: no JVD, S1 normal heart sound, S2 normal heart sound and no murmurs GI Common normals: Normal to inspection, nondistended, normoactive bowel sounds present Auscultation: normoactive bowel sounds Palpation: soft and tender Details: epigastric Extremity Common normals: normal to inspection and full ROM Neuro Common normals: moves all extremities, no focal motor deficits and no sensory deficits noted Psych Common normals: cooperative, denies hallucinations, denies homicidal ideation and denies suicidal ideation Attitude: calm Activity/motor behavior: appropriate eye contact Speech: slow Mood and affect: depressed mood and sad Thought process: normal thought process Thought content: normal thought content Attention/concentration: attention grossly intact Memory/cognition: memory grossly intact Insight: insight good Judgement: judgment good Internal Medicine - PN: Obj Da Labs Labs: Laboratory Results - last 24 hr 02/03/23 02/03/23 02/07/23 13:11 13:50 04:26 WBC 6.6 RBC 2.90 L Hgb 8.9 L Hct 27.7 L MCV 95.5 MCH 30.7 MCHC 32.1 RDW 14.6 Plt Count 218 MPV 8.9 L Neut % (Auto) 64.5 Lymph % (Auto) 21.7 [place] % (Auto) 6.7 Eos % (Auto) 6.0 Baso % (Auto) 0.5 Neut # (Auto) 4.2 Lymph # (Auto) 1.4 [place] # (Auto) 0.4 Eos # (Auto) 0.4 Baso # (Auto) 0.0 Abs Immat Gran (auto) 0.04 H Imm/Tot Granulo (auto) 0.6 H Sodium 138 Potassium 4.2 Chloride 106 Carbon Dioxide 23.9 Anion Gap 12.3 BUN 14.0 Creatinine 0.88 Est GFR ( Amer) >60 Est GFR (Non-Af Amer) >60 BUN/Creatinine Ratio 15.9 Glucose 82 Plasma/Ser Osmolality 271 L Calcium 7.6 L Urine Color Lt. yellow Urine Clarity Clear Urine pH 6.0 Ur Specific [place] <=1.005 A Urine Protein Negative Urine Glucose (UA) Negative Urine Ketones Negative Urine Occult Blood Negative Urine Nitrite Negative Urine Bilirubin Negative Urine Urobilinogen 0.2 Ur Leukocyte Esterase Negative Urine RBC 0-2 Urine WBC None seen Ur Squamous Epith Cells Rare Urine Crystals None seen Urine Bacteria None seen Urine Casts None seen Urine Mucus None seen Ur Random Sodium 53
--- NOTE | 2023-02-07 11:37 | CT_ITS ---
The [address] [address] Patient Name: JOSE CLEMENTS MRN: [id number] date: 1960 Sex: F Assigned Patient Location: MS Current Patient Location: [place] Accession/Order Number: [id number] Exam Date: 02/07/2023 11:33 Report Date: 02/07/2023 12:45 At the request of: SHAIKH SISI Procedure: CT abdomen pelvis wo con EXAM: CT abdomen pelvis wo con 02/07/2023 COMPARISON STUDY: CT of the abdomen and pelvis with contrast 05/27/2021. HISTORY: Abominal pain/diarrhea TECHNIQUE: 3 mm sections were obtained from the lung bases through the pubic symphysis without use of contrast. Coronal and sagittal reconstructed images were obtained FINDINGS: Linear discoid atelectatic/fibrotic changes involving lingula and left lower lobe are noted. Heart size is normal. Coronary artery calcifications are identified. Nonspecific hyperdensity of ventricular myocardium as compared to blood within the ventricles suggestive of anemic state. Prior cholecystectomy. There is significant intrahepatic and extrahepatic biliary ductal dilatation again noted. Common hepatic duct has AP measurement of 2.1 cm. This is similar to that seen on prior study. Liver, spleen, adrenals, kidneys and pancreas demonstrate no acute abnormality. There are no inflammatory changes or fluid about the gastric remanent. JJ anastomosis within the left mid abdomen as seen on image #61. Caudal to this there is abnormal swirling of mesenteric vessels within the upper pelvis, images 80-95 of series 3. There are adjacent angulated and partially collapsed small bowel segments noted. CT PELVIS: Similar atrophic changes of the pelvic floor musculature with mild pelvic floor relaxation. Trace volume of free pelvic fluid noted. Uterus and ovaries are not seen. Mild colonic diverticular disease noted. Colon is nonspecific partially collapsed appearance. The appendix is not readily visible and may be surgically absent. There is mild gaseous distention of proximal jejunum proximal to the JJ anastomosis. A segment on image #55 has AP measurement of 3.9 cm. Distally to this jejunal segments have a more collapsed appearance within the left lower quadrant and left upper hemipelvis. Posterior reuben and screw fixation from L3 through L5 levels with prior discectomy and interbody fusion at L4-L5. No acute osseous abnormality suspected. Mild background diffuse body wall edema may be present. Low-lying IVC filter with the apex within the distal IVC. The legs extend into and beyond the hernandez of the right common iliac vein into the adjacent fat similar to that seen on prior study. CT/CT abdomen pelvis wo con IMPRESSION: 1. Prior cholecystectomy. Moderate diffuse intrahepatic and intrahepatic biliary ductal dilatation, not significantly changed. Correlate with liver function test. 2. Prior gastric bypass. Mild abnormal gaseous dilatation of proximal jejunal segments proximal to the JJ anastomosis. There is abnormal swirling of the mesenteric vessels within the left upper hemipelvis with adjacent angulated collapsed small bowel segments. This pattern can be seen with internal hernia and/or intraperitoneal adhesions. 3. Hysterectomy. Appendix may be surgically absent. Posterior reuben and screw fixation of the lower lumbar spine. 4. Low-lying IVC filter is again identified, located at the level of the right common iliac vein. Electronically authenticated by: CHUCKIE OTERO Date: 02/07/2023 12:45
[2023-02-07] MEDS: ONDANSETRON PF 4 MG/2 ML VIAL IV ×3 (11:57→20:33)
[2023-02-07] MEDS: HYDROMORPHONE HCL 0.5 MG/0.5 ML SYRINGE IV ×3 (11:57→20:33)
[2023-02-07 12:03] LABS: Enteropathogenic E.coli DETECTED (NOT DETECTE)
--- NOTE | 2023-02-07 13:35 | FL_ITS ---
The [address] [address] Patient Name: JOSE CLEMENTS MRN: [id number] date: 1960 Sex: F Assigned Patient Location: [place] Current Patient Location: [place] Accession/Order Number: [id number] Exam Date: 02/07/2023 14:00 Report Date: 02/08/2023 04:15 At the request of: MIGEL MCKINNEY Procedure: FL small bowel EXAMINATION: FL small bowel HISTORY: abnormal ct scan COMPARISON: No relevant comparison available. TECHNIQUE: Small bowel series was performed in the usual manner. FINDINGS: DUODENUM: No abnormal dilation or obstruction. JEJUNUM: Normal motility. No obstruction or visible lesion. ILEUM: Normal motility. No obstruction or visible lesion. OTHER: Filter within the IVC. Numerous midline closer sutures. Prior mechanical fusion of lower lumbar spine. FL/FL small bowel IMPRESSION: 1. No bowel obstruction. Oral contrast has passed through the small bowel to the level of the mid descending colon by 2 1/2 hours. Electronically authenticated by: BUNNY ZEPEDA Date: 02/08/2023 04:15
--- NOTE | 2023-02-07 15:00 | CONS_ITS ---
CONSULTATION ? CONSULTATION DATE: ??02/07/2023 ? REASON FOR CONSULTATION:? Abdominal pain, nausea, vomiting, diarrhea. ? HISTORY:? Patient is a 62-year-old female with multiple medical problems including chronic abdominal pain and back pain, COPD, lumbar spondylosis, chronic pain requiring narcotics, chronic heart failure, chronic anemia, frequent episodes of dehydration and hyponatremia, multiple hospital admissions.? She does have a history of gastric bypass in 2001.? She has had multiple other abdominal surgeries including cholecystectomy, hysterectomy, hernia repairs.? She was admitted early January for several days with severe dehydration and acute kidney injury.? Subsequently, underwent a pain management procedure for her back pain on the , and was admitted through the ER that evening with nausea, vomiting and diarrhea, as well as poor p.o. intake.? She reports that she has had recent worsening problems with this.? Of note is that the stool studies on admission from the ER were positive for enteropathic E. coli.? According to the patient?s , she did have problems with this in 2018, required hospitalization as well as treatment after a trip to [place].? Patient denies any bloody stools, does have poor appetite.? She has had frequent loose stools and had repeat stool studies sent today.? During this admission, she has had a normal white blood cell count.? She has had the chronic anemia.? Vital signs have otherwise been stable. She did undergo a CT scan of the abdomen and pelvis today, because she has not been improving.? This revealed chronic changes from her multiple previous abdominal surgeries, but it was also read as some swirling of mesenteric vessels near the left pelvic brim, decompressed small bowel associated with this, possible adhesions versus obstruction.? Patient, generally, has had no severe pain and has been continuing to have bowel movements, so clinically does not have signs of an acute abdomen, sepsis, ischemia or acute obstruction.? Certainly a partial obstruction would be a possibility.? ? ALLERGIES:? Patient has multiple allergies including iodine, amoxicillin, clavulanic acid, sulfa and ciprofloxacin. ? MEDICATIONS:? Patient is on multiple home medications including Percocet, as well as a fentanyl patch. ? PAST SURGICAL HISTORY:? As noted in the HPI. ? FAMILY HISTORY:? Noncontributory. ? SOCIAL HISTORY:? Patient denies alcohol use, tobacco use or illicit drug use.? ? REVIEW OF SYSTEMS:? Ten system review of systems is negative for recent weight loss or weight gain.? She has had the chronic abdominal and back pain, frequent nausea, vomiting, as well as frequent loose stools.? No melena, hematochezia or bright red blood per rectum.? No dysuria, frequency, urgency or hematuria.? No headaches, seizures or tremors.? No easy bruising or bleeding.? No heat or cold intolerance.? No polydipsia, polyphagia or polyuria. ? PHYSICAL EXAM:? VITAL SIGNS:? Patient is afebrile.? Blood pressure is 172/92.? Pulse is 79 and regular.? Respiratory rate is 18.? O2 saturation is 100% on room air.? GENERAL:? In general, she is a well developed, well nourished female, sitting up in bed, in no acute distress. HEENT:? Normocephalic, atraumatic.? Sclerae anicteric.? Conjunctiva are not injected.? Oral mucosa is moist. LUNGS:? Clear bilaterally.? CARDIAC EXAM:? Regular rhythm and rate without appreciable murmurs, rubs or gallops. ABDOMEN:? Non-distended.? There are hyperactive bowel sounds.? There is mild diffuse subjective tenderness, more in the left mid abdomen.? No peritoneal signs.? No masses.? No hepatosplenomegaly.? No hernias noted.? Multiple previous abdominal scars.? SKIN:? Warm and dry without lesions, rashes or ulcers. NEURO EXAM:? Non-focal.? Non-lateralizing.? Patient is awake, alert, oriented with appropriate affect. ? ASSESSMENT: A 62-year-old female with chronic multiple medical problems, as well as chronic pain and chronic abdominal complaints, now with abnormal CT scan.? Certainly, without IV or oral contrast, this study is very limited.? ? PLAN:? Did order a small bowel follow through to further evaluate the bowel, which is currently being done.? She certainly has no evidence of acute abdomen or ongoing acute ischemia of the bowel.? Given the fact that she did have enteropathic E. coli on the an had severe symptoms with this in the past, I would recommend treatment with Zithromax for three days, which will begin.? Due to her multiple sensitivities, will dose at 250 b.i.d.? Certainly, if she would have evidence of obstruction, partial or more severe, she will likely require transfer to a tertiary care center, as she is very high risk for any surgical intervention, due to her multiple medical problems and multiple previous surgeries, as well as gastric bypass. INEZ
--- NOTE | 2023-02-07 18:57 | P.GSCN_ITS ---
History of Present Illness Consult details Consult date: 02/07/23 Reason for consult: abdominal pain Narrative: patient seen/examined/cart and x-ray images reviewed/consult dictated; 62 yo female with multiple medical problems/chronic abd pain; N/V/D, now with abnormal abd/pelvic ct scan; clinically no evidence of bowel ischemia or complete obstruction; normal vs, abd benign on exam; will obtain sbft for further evaluation; abd/pelvic ct scan without oral or IV contrast provides a very limited evaluation; will treat enteropathic E coli found on 02/03/23, since she has had problems with this in the past; will follow. [facility] Medical History (Updated 02/07/23 @ 11:21 by Shaikh Vijay MD) Surgical History (Updated 01/18/23 @ 11:23 by Chayito Wilson RN) Family History (Updated 01/23/23 @ 18:44 by Audrey Booker) Father Family history of CHF (congestive heart failure) Family history of diabetes mellitus Family history of hypertension Family history of myocardial infarction Family history of stroke Mother Family history of CHF (congestive heart failure) Family history of COPD (chronic obstructive pulmonary disease) Family history of diabetes mellitus Family history of hypertension Family history of myocardial infarction Family history of stroke Social History (Updated 01/23/23 @ 18:46 by Audrey Booker) Within the past year, how often did you have a drink containing alcohol: never Within the past year, how often did you have six or more drinks on one occasion: never Score interpretation: A score less than 3 is consistent with normal alcohol consumption. 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 Highest level of school completed/degree received: some college, no degree Are you now , , , , never or living with a partner: In a typical week, how many times do you talk on the telephone with family, friends, or neighbors: 3 or more times per week How often do you get together with friends or relatives: twice per week How often do you attend roman catholic or hoahaoism services: 4 or more times per year Do you belong to any clubs or organizations such as roman catholic groups unions, fraternal or athletic groups, or school groups: no Total score: 3 Score interpretation: A score of greater than or equal to 2 indicates the lowest level of social isolation. Little interest or pleasure in doing things: not at all Feeling down, depressed, or hopeless: several days Feel stressed/tense/nervous/anxious/difficulty sleeping: to some extent Life stressors: recent of family or friend Do you think of yourself as: straight/heterosexual Gender Identity: female Meds Home Medications and Allergies Home Medications Medication Instructions Recorded Confirmed Type alprazolam 0.5 mg tablet 0.5 mg PO BID 12/08/22 02/04/23 History amitriptyline 150 mg tablet 150 mg PO BEDTIME 12/08/22 02/04/23 History calcium acetate(phosphat bind) 667 667 mg PO BID 12/08/22 02/04/23 History mg capsule fentanyl 100 mcg/hr transdermal 1 patch transdermal Q72H 12/08/22 02/04/23 History patch levothyroxine 100 mcg tablet 100 mcg PO DAILY 12/08/22 02/04/23 History linaclotide 290 mcg capsule 290 mcg PO DAILY 12/08/22 02/04/23 History (Linzess) liothyronine 25 mcg tablet 25 mcg PO DAILY 12/08/22 02/04/23 History metoclopramide HCl 10 mg tablet 10 mg PO QID PRN nausea and 12/08/22 02/03/23 History vomiting metoprolol tartrate 50 mg tablet 50 mg PO BID PRN hypertension 12/08/22 02/04/23 History (Lopressor) ondansetron HCl 4 mg tablet 4 mg PO TID-QID PRN nausea and 12/08/22 02/04/23 History vomiting oxycodone-acetaminophen 5 mg-325 2 tab PO Q6H 12/08/22 02/04/23 History mg tablet pantoprazole 40 mg tablet,delayed 40 mg PO BID 12/08/22 02/04/23 History release primidone 50 mg tablet 100 mg PO BEDTIME 12/08/22 02/04/23 History tizanidine 4 mg tablet (Zanaflex) 4 mg PO Q6H 12/08/22 02/04/23 History aripiprazole 2 mg tablet (Abilify) 2 mg PO DAILY 01/23/23 02/04/23 History bumetanide 1 mg tablet 4 mg PO QDAY 01/23/23 02/04/23 History loratadine 10 mg tablet (Claritin) 10 mg PO DAILY 01/23/23 02/04/23 History sacubitril 97 mg-valsartan 103 mg 1 tab PO BID 01/23/23 02/04/23 History tablet (Entresto) pramipexole 1 mg tablet (Mirapex) 1 mg PO .evening 01/24/23 02/04/23 History spironolactone 50 mg tablet 50 mg PO DAILY PRN swelling 01/24/23 02/04/23 History (Aldactone) albuterol sulfate 2.5 mg/3 mL 2.5 mg inhalation Q4H PRN 02/03/23 02/04/23 Hist ory (0.083 %) solution for nebulization bronchospasm [id number]-mafpzqys 1 cap PO Q6H PRN pain 02/03/23 02/04/23 History 50 mg-325 mg-40 mg capsule butorphanol 10 mg/mL nasal spray 1 spray intranasal BID PRN pain 02/03/23 02/04/23 History desvenlafaxine succinate 50 mg 50 mg PO Q24H 02/03/23 02/04/23 History tablet,extended release 24 hr escitalopram oxalate 20 mg tablet 20 mg PO DAILY 02/03/23 02/04/23 History fluticasone furoate 100 1 inh inhalation Q24H 02/03/23 02/04/23 History mcg-vilanterol 25 mcg/dose inhalation powder (Breo Ellipta) Allergies Allergy/AdvReac Type Severity Reaction Status Date / Time povidone-iodine Allergy Intermediate Verified 02/02/23 09:47 [From Betadine] amoxicillin [From Augmentin] Allergy Mild Vomiting Verified 02/02/23 09:47 clavulanic acid Allergy Mild Vomiting Verified 02/02/23 09:47 [From Augmentin] Sulfa (Sulfonamide Allergy Mild Vomiting Verified 02/02/23 09:47 Antibiotics) ciprofloxacin [From Cipro] Allergy Unknown Verified 02/02/23 09:47 Exam Constitutional Vital Signs, click to edit/add: Last Vital Signs Temp 98.0 F 02/07/23 13:40 Pulse 79 02/07/23 16:00 Resp 18 02/07/23 13:40 BP 172/92 H 02/07/23 13:40 Pulse Ox 100 02/07/23 16:00 O2 Del Method Room Air 02/07/23 04:34 O2 Flow Rate 100 02/05/23 11:31 Results Labs Labs: Abnormal lab results 02/03/23 02/03/23 02/03/23 Range/Units 10:09 13:11 13:50 RBC (4.20-5.40) 10^6/uL Hgb (12.0-16.0) g/dL Hct (36.0-48.0) % MPV (9.5-13.5) fL Abs Immat Gran (auto) (0.00-0.03) 10^3/uL Imm/Tot Granulo (auto) (0.0-0.5) % Plasma/Ser Osmolality 271 L (275-295) mOsmol/kg Calcium (8.5-10.1) mg/dL Ur Specific [place] <=1.005 A (1.005-1.025) Stool EPEC (PCR) Detected A (NOT DETECTE) 02/07/23 Range/Units 04:26 RBC 2.90 L (4.20-5.40) 10^6/uL Hgb 8.9 L (12.0-16.0) g/dL Hct 27.7 L (36.0-48.0) % MPV 8.9 L (9.5-13.5) fL Abs Immat Gran (auto) 0.04 H (0.00-0.03) 10^3/uL Imm/Tot Granulo (auto) 0.6 H (0.0-0.5) % Plasma/Ser Osmolality (275-295) mOsmol/kg Calcium 7.6 L (8.5-10.1) mg/dL Ur Specific [place] (1.005-1.025) Stool EPEC (PCR) (NOT DETECTE) Diabetes panel 02/07/23 Range/Units 04:26 Sodium 138 (136-145) mmol/L Potassium 4.2 (3.5-5.1) mmol/L Chloride 106 (98-107) mmol/L Carbon Dioxide 23.9 (21.0-32.0) mmol/L BUN 14.0 (7.0-18.0) mg/dL Creatinine 0.88 (0.55-1.02) mg/dL Glucose 82 (74-106) mg/dL Calcium 7.6 L (8.5-10.1) mg/dL Calcium panel 02/07/23 Range/Units 04:26 Calcium 7.6 L (8.5-10.1) mg/dL Pituitary panel 02/07/23 Range/Units 04:26 Sodium 138 (136-145) mmol/L Potassium 4.2 (3.5-5.1) mmol/L Chloride 106 (98-107) mmol/L Carbon Dioxide 23.9 (21.0-32.0) mmol/L BUN 14.0 (7.0-18.0) mg/dL Creatinine 0.88 (0.55-1.02) mg/dL Glucose 82 (74-106) mg/dL Calcium 7.6 L (8.5-10.1) mg/dL Adrenal panel 02/07/23 Range/Units 04:26 Sodium 138 (136-145) mmol/L Potassium 4.2 (3.5-5.1) mmol/L Chloride 106 (98-107) mmol/L Carbon Dioxide 23.9 (21.0-32.0) mmol/L BUN 14.0 (7.0-18.0) mg/dL Creatinine 0.88 (0.55-1.02) mg/dL Glucose 82 (74-106) mg/dL Calcium 7.6 L (8.5-10.1) mg/dL All other labs normal. Assessment and Plan Assessment and Plan (1) Gastroenteritis: (2) Dehydration: (3) LEEANN (acute kidney injury): (4) Hyponatremia: (5) Migraine without aura and without status migrainosus, not intractable: (6) HTN (hypertension): (7) Depression: (8) COPD (chronic obstructive pulmonary disease): (9) Lumbar spondylosis: (10) Chronic heart failure with preserved ejection fraction (HFpEF): (11) Anemia:
[2023-02-07] MEDS: BUDESONIDE 0.5 MG/2 ML AMPULE NEB IH (20:05)
[2023-02-07] MEDS: ALBUTEROL SULFATE 2.5 MG/3 ML VIAL NEB IH (20:05)
[2023-02-07] MEDS: CEFTRIAXONE 1,000 MG in 0.9 % SODIUM CHLORIDE 50 ML 100 MG IV (20:32)
[2023-02-07] MEDS: PRAMIPEXOLE 1 MG TABLET PO (20:33)
[2023-02-07] MEDS: DESVENLAFAXINE SUCCINATE 50 MG TAB.ER.24H PO (20:33)
[2023-02-07] MEDS: AZITHROMYCIN 250 MG TABLET PO (23:28)
[2023-02-07] MEDS: PRIMIDONE 50 MG TABLET 100 MG PO (23:28)
[2023-02-07] MEDS: AMITRIPTYLINE HCL 50 MG TABLET 150 MG PO (23:29)
[2023-02-08] MEDS: ONDANSETRON PF 4 MG/2 ML VIAL IV ×2 (01:27→05:57)
[2023-02-08] MEDS: HYDROMORPHONE HCL 0.5 MG/0.5 ML SYRINGE IV ×2 (01:28→05:57)
[2023-02-08 02:00] VITALS: PULSE 88; O2SAT 99
[2023-02-08 04:00] VITALS: PULSE 134
[2023-02-08] MEDS: LACTATED RINGER'S SOLUTION 1,000 ML 100 ML IV (04:10)
[2023-02-08] MEDS: TIZANIDINE HCL 4 MG TABLET PO ×2 (04:47→10:08)
[2023-02-08 04:56] LABS: Basophils Percent Auto 0.7 % (0.2-2.0); Eosinophils Absolute Auto 0.4 10^3/uL (0.0-0.7); Eosinophils Percent Auto 5.9 % (0.9-7.0); Hematocrit 28.9 % (36.0-48.0); Hemoglobin 9.1 g/dL (12.0-16.0); Immature Granulocytes Abs Auto 0.03 10^3/uL (0.00-0.03); Immature Granulocytes Pct Auto 0.5 % (0.0-0.5); Lymphocytes Absolute Auto 1.6 10^3/uL (1.2-3.8); Lymphocytes Percent Auto 26.9 % (20.5-60.0); Mean Corpuscular HGB Conc 31.5 g/dL (29.9-35.2); Mean Corpuscular Hemoglobin 30.4 pg (26.7-34.0); Mean Corpuscular Volume 96.7 fL (81.0-99.0); Monocytes Absolute Auto 0.5 10^3/uL (0.3-0.8); Monocytes Percent Auto 7.4 % (1.7-12.0); Neutrophils Absolute Auto 3.6 10^3/uL (1.4-6.5); Neutrophils Percent Auto 58.6 % (43.0-75.0); Platelet Count 239 10^3/uL (150-450); Red Blood Count 2.99 10^6/uL (4.20-5.40); Red Cell Distribution Width 14.6 % (11.0-15.0); White Blood Count 6.1 10^3/uL (4.0-11.0)
[2023-02-08 05:07] LABS: Anion Gap 11.6; BUN Creatinine Ratio 9.2; Calcium 8.1 mg/dL (8.5-10.1); Carbon Dioxide 24.1 mmol/L (21.0-32.0); Chloride 107 mmol/L (98-107); Estimated GFR (African America >60 (>=60); Estimated GFR (Non-African Ame 58 (>=60); Glucose 73 mg/dL (74-106); Potassium 3.7 mmol/L (3.5-5.1); Sodium 139 mmol/L (136-145)
[2023-02-08] MEDS: OMEPRAZOLE 40 MG CAPSULE.DR PO (05:55)
[2023-02-08] MEDS: LEVOTHYROXINE SODIUM 100 MCG TABLET PO (05:56)
[2023-02-08 06:00] VITALS: BP 127/88; PULSE 80; PULSE 86; RESP 18; TEMP 36.6; O2SAT 97
[2023-02-08] MEDS: LIOTHYRONINE SODIUM 25 MCG TABLET PO (06:26)
[2023-02-08 08:00] VITALS: PULSE 68; RESP 18
[2023-02-08] MEDS: AZITHROMYCIN 250 MG TABLET PO (09:54)
[2023-02-08] MEDS: CETIRIZINE HCL 10 MG TABLET PO (09:54)
[2023-02-08] MEDS: ARIPIPRAZOLE 2 MG TABLET PO (09:54)
[2023-02-08] MEDS: ESCITALOPRAM 10 MG TABLET 20 MG PO (09:55)
[2023-02-08] MEDS: CALCIUM ACETATE 667 MG CAPSULE PO (09:55)
[2023-02-08 09:56] VITALS: PULSE 74; O2SAT 98
[2023-02-08] MEDS: ALPRAZOLAM 0.5 MG TABLET PO (09:56)
[2023-02-08] MEDS: SACUBITRIL/VALSARTAN 1 EACH TABLET 3 TAB PO (10:00)
--- NOTE | 2023-02-08 10:49 | CM.NOTE ---
Rounds made with Dr. Linares, pt continues with abdominal pain and nausea. Possible discharge this evening if pt able to take in food.
[2023-02-08 11:04] VITALS: O2SAT 96
--- NOTE | 2023-02-08 11:06 | PM.DS1 ---
DS: Providers Provider Date of admission: 02/03/23 09:37 Primary care physician: Yuri Godinez MD Consults: 02/03/23 12:55 Physical Therapy Eval and Treat Routine 02/07/23 12:53 Consult to General Surgeon Routine Consulting Provider: Gerald Yanes Attending physician on discharge: Shaikh Vijay Discharging clinician: Shaikh Vijay Anticipated date of discharge: 02/08/23 DS: Diagnosis Discharge Diagnosis (1) Gastroenteritis: Assessment and plan: sec to E coli. Started on Rocephin 02/07/23. Feeling better today Will d/c on oral Ceftin She has chronic GI issues and problems and might benefit from outpatient GI evaluation via EGD/colonoscopy (2) Dehydration: Assessment and plan: Resolved with IV hydration (3) LEEANN (acute kidney injury): Assessment and plan: due to dehydration. Resolved. (4) Hyponatremia: Assessment and plan: due to dehydration. Resolved. (5) Migraine without aura and without status migrainosus, not intractable: Assessment and plan: Outpatient f/u. (6) HTN (hypertension): Assessment and plan: Resume home medications other than Bumex. Resume once seen by PCP unless starts developing LE edema and in that case, resume after consultation with PCP or Cardiology. (7) Depression: Assessment and plan: C/w home meds. Would recommend adjustment in her regiment as high risk of serotonin syndrome with current regimen. (8) COPD (chronic obstructive pulmonary disease): Assessment and plan: Stable. C/w trelegy (9) Lumbar spondylosis: Assessment and plan: Chronic, unchanged. On multiple narcotics. C/w current regimen. Defer to PCP (10) Chronic heart failure with preserved ejection fraction (HFpEF): Assessment and plan: p/w dehydration, LEEANN. Will hold Bumex until seen by PCP in 1 week for hospital f/u Resume or c/w rest of her meds - Entresto, aldactone, lopressor (11) Anemia: Assessment and plan: Chronic, unchanged. Outpatient f/u and w/u. DS: Summary Hospital Course Hospital Course: Patient presented to the hospital with nausea, vomiting, poor PO intake, watery diarrhea resulting in weakness, tiredness and dehydration and was admitted for intractable nausea/vomiting, diarrhea, LEEANN and hyponatremia. She was managed with IV fluids, anti emetics for her GI symptoms. Her electrolyte abnormalities improved along with her volume status but she continued to have persistent nausea, anorexia, diarrhea. Patient had CT abd pelvis 02/07 and then XR abdominal series for careful examination to look into the cause of her persistent symptoms and it seems like she had gastroenteritis due to E coli and she experienced quick improvement in her symptoms with IV rocephin. Patient in morning was still feeling nauseous but was able to eat her breakfast. She felt somewhat better but still not quite back to her baseline but insisted for discharge as she felt well enough to continue with oral dehydration and tolerate PO intake and antibiotic. Will d/c home on oral Ceftin. Patient educated on worrisome signs and symptoms that should prompt her to seek medical care and based on the severity of symptoms, either contact PCP or come to ED. Status at Discharge Functional status at discharge: independent ambulation Overall status at discharge: patient is progressing back to baseline Time Spent with Patient Time attestation: Total time spent providing and/or coordinating discharge services: Time spent: greater than 30 minutes Exam Constitutional Vital Signs, click to edit/add: Last Vital Signs Temp 97.8 F 02/08/23 06:00 Pulse 74 02/08/23 09:56 Resp 18 02/08/23 08:00 BP 127/88 02/08/23 06:00 Pulse Ox 96 02/08/23 11:04 O2 Del Method Room Air 02/08/23 11:04 O2 Flow Rate 100 02/05/23 11:31 Documenting provider has reviewed patient's vital signs: yes Common normals: oriented x3 General appearance: cooperative, comfortable and ill appearing [facility] Common normals: normocephalic and head/scalp atraumatic Respiratory Common normals: normal respiratory effort, no use of accessory muscles and clear to auscultation bilaterally Cardio Common normals: no JVD, S1 normal heart sound, S2 normal heart sound and no murmurs GI Common normals: Normal to inspection, nondistended, normoactive bowel sounds present Auscultation: normoactive bowel sounds Palpation: soft and tender Details: epigastric Extremity Common normals: normal to inspection and full ROM Neuro Common normals: moves all extremities, no focal motor deficits and no sensory deficits noted Psych Common normals: cooperative, denies hallucinations, denies homicidal ideation and denies suicidal ideation Attitude: calm Activity/motor behavior: appropriate eye contact Thought process: normal thought process Thought content: normal thought content Attention/concentration: attention grossly intact Memory/cognition: memory grossly intact Insight: insight good Judgement: judgment good DS: Data Data Completed and Pending Labs on day of discharge: Labs from last 24 hours 02/08/23 02/03/23 02/03/23 04:20 13:11 10:09 WBC 6.1 RBC 2.99 L Hgb 9.1 L Hct 28.9 L MCV 96.7 MCH 30.4 MCHC 31.5 RDW 14.6 Plt Count 239 MPV 9.0 L Neut % (Auto) 58.6 Lymph % (Auto) 26.9 [place] % (Auto) 7.4 Eos % (Auto) 5.9 Baso % (Auto) 0.7 Neut # (Auto) 3.6 Lymph # (Auto) 1.6 [place] # (Auto) 0.5 Eos # (Auto) 0.4 Baso # (Auto) 0.0 Abs Immat Gran (auto) 0.03 Imm/Tot Granulo (auto) 0.5 Sodium 139 Potassium 3.7 Chloride 107 Carbon Dioxide 24.1 Anion Gap 11.6 BUN 9.0 Creatinine 0.98 Est GFR ( Amer) >60 Est GFR (Non-Af Amer) 58 L BUN/Creatinine Ratio 9.2 Glucose 73 L Plasma/Ser Osmolality 271 L Calcium 8.1 L Stl C. cayetanensis PCR Not detected Stool Rotavirus (PCR) Not detected Stool Adenovirus (PCR) Not detected Stool Astrovirus (PCR) Not detected Stool Campylobacter PCR Not detected Stool Cryptosporidium PCR Not detected St Sh/Enteroin Ecoli PCR Not detected Stl Enterotoxigenic E PCR Not detected Stool EPEC (PCR) Detected A Stl E. histolytica PCR Not detected Stool Giardia Lamblia PCR Not detected Stl P. shigelloides PCR Not detected Stool Salmonella PCR Not detected Stool Sapovirus (PCR) Not detected Stl Shiga-like Tx [address].enterocolitica PCR Not detected Stl Vibrio cholerae PCR Not detected Stl Enteroaggr Ecoli PCR Not detected Stl Norovirus GI/GII PCR Not detected C. difficile Toxin A&B Not detected Vibrio Culture Not detected Discharge Plan Discharge Disposition: Home, Self-Care Discharge Medications: New cefuroxime axetil 500 mg tablet 500 mg PO BID 7 Days Qty: 14 0RF Continued aripiprazole [Abilify] 2 mg tablet 2 mg PO DAILY loratadine [Claritin] 10 mg tablet 10 mg PO DAILY Entresto 97-103 mg tablet 1 tab PO BID pramipexole [Mirapex] 1 mg tablet 1 mg PO .evening Rx Instructions: PER RETAIL FILL HX - LAST FILLED 01/05/23 #30 FOR A 30 DAY SUPPLY spironolactone [Aldactone] 50 mg tablet 50 mg PO DAILY PRN (Reason: swelling) Rx Instructions: PER RETAIL FILL HX - LAST FILLED 01/13/23 #30 FOR A 30 DAY SUPPLY albuterol sulfate 2.5 mg /3 mL (0.083 %) solution for nebulization 2.5 mg inhalation Q4H PRN (Reason: bronchospasm) butorphanol 10 mg/mL spray,non-aerosol 1 spray INTRANASAL BID PRN (Reason: pain) [id number]-nvzcfqgaduwrz-iaqp 50-325-40 mg capsule 1 cap PO Q6H PRN (Reason: pain) desvenlafaxine succinate 50 mg tablet extended release 24 hr 50 mg PO Q24H escitalopram oxalate 20 mg tablet 20 mg PO DAILY fluticasone furoate-vilanterol [Breo Ellipta] 100-25 mcg/dose blister with device 1 inh INHALATION Q24H alprazolam 0.5 mg tablet 0.5 mg PO BID amitriptyline 150 mg tablet 150 mg PO BEDTIME calcium acetate(phosphat bind) 667 mg capsule 667 mg PO BID levothyroxine 100 mcg tablet 100 mcg PO DAILY metoprolol tartrate [Lopressor] 50 mg tablet 50 mg PO BID PRN (Reason: hypertension) metoclopramide HCl 10 mg tablet 10 mg PO QID PRN (Reason: nausea and vomiting) ondansetron HCl 4 mg tablet 4 mg PO TID-QID PRN (Reason: nausea and vomiting) primidone 50 mg tablet 100 mg PO BEDTIME tizanidine [Zanaflex] 4 mg tablet 4 mg PO Q6H fentanyl 100 mcg/hr patch 72 hour 1 patch transdermal Q72H Patient Comments: removed 01/31, new patch not put on yet liothyronine 25 mcg tablet 25 mcg PO DAILY oxycodone-acetaminophen 5-325 mg tablet 2 tab PO Q6H pantoprazole 40 mg tablet,delayed release (DR/EC) 40 mg PO BID Held bumetanide 1 mg tablet 4 mg PO QDAY Hold Instructions: Resume on 02/16/23. until cleared by PCP Rx Instructions: PER RETAIL FILL HX - LAST FILLED 01/18/23 #90 FOR A 30 DAY SUPPLY DIRECTIONS READ TAKE 1 TABLET UP TO THREE TIMES A DAY NEEDED FOR SWELLING DIRECTED Linzess 290 mcg capsule 290 mcg PO DAILY Hold Instructions: Resume on 02/16/23. until diarrhea resolves Activity: resume usual activities as tolerated Diet: advance to your usual diet and low fat, low cholesterol Forms: Portal Instructions Follow Up Appointments: PCP - Dr Godinez in one week
--- NOTE | 2023-02-08 11:36 | NUTR.NU ---
tx for gastroenteritis
--- NOTE | 2023-02-09 14:45 | CM.DCFOLLOWU ---
Person spoke with: Mabel How are you feeling? Better still having diarrhea but has slowed down How is your pain? much better Did you understand your discharge instructions? yes Do you have any questions about your discharge instructions? no Were you given any prescriptions at discharge? yes Were you able to get your prescriptions filled? yes Do you understand how to take your medications as ordered? yes Do you have any questions about your follow up appointment and do you plan to keep your follow up appointment? I need to schedule Is there anything else that you would like to discuss? no Questions/Comments/Concerns/Other:
== END 2023-02-08 13:04 | disposition home or self-care (01) | DRG 372 ==
LOC: ICU 17:10 → MS 02-05 11:54 → ICU 02-09 07:55 → MS 02-09 07:55 → ICU 02-09 07:57 → MS 02-09 07:57
PROVIDERS: Admitting Provider Internal Medicine; PCP Family Medicine; Visit Provider Internal Medicine
DX: A04.4 Other intestinal Escherichia coli infections (principal); E87.1 Hypo-osmolality and hyponatremia; K56.7 Ileus, unspecified; I50.32 Chronic diastolic (congestive) heart failure; I13.0 Hypertensive heart and chronic kidney disease with heart failure and stage 1 through stage 4 chronic kidney disease, or unspecified chronic kidney disease; E86.0 Dehydration; G43.009 Migraine without aura, not intractable, without status migrainosus; J44.9 Chronic obstructive pulmonary disease, unspecified; M47.816 Spondylosis without myelopathy or radiculopathy, lumbar region; N18.31 Chronic kidney disease, stage 3a; D64.9 Anemia, unspecified; K21.9 Gastro-esophageal reflux disease without esophagitis; F32.A Depression, unspecified; G89.29 Other chronic pain; R10.9 Unspecified abdominal pain; M54.9 Dorsalgia, unspecified; Z79.899 Other long term (current) drug therapy; Z98.84 Bariatric surgery status; Z79.890 Hormone replacement therapy; Z90.49 Acquired absence of other specified parts of digestive tract; Z90.710 Acquired absence of both cervix and uterus
CPT/HCPCS: 36415; 36591; 64635; 64636; 74019; 74022; 74176; 74250; 80048; 80053; 81001; 82140; 83605; 83735; 83880; 83930; 84300; 84436; 84443; 85025; 87086; 87150; 87186; 87493; 87507; 94640; 94667; 94668; 94761; 96361; 96365; 96366; 96375; 96376; G0378; J1030; J1170; J2704; Q9963

== ENCOUNTER 2023-02-15 14:00 | Outpatient (RCR) | payer MEDICARE, MEDICAID, SELFPAY ==
[2023-02-02 08:20] VITALS: BP 152/70; PULSE 66; RESP 18; TEMP 36.6; O2SAT 96
--- NOTE | 2023-02-02 08:30 | PC.NURSE ---
Pt. to [facility] for weekly lab draw. Seated in recliner. Using sterile technique, right ant. chest port accessed using #19 gauge Stovall needle. Flushes easily, able to aspirate blood easily. Blood obtained for labs. Port flushed with saline. Port remains accessed due to scheduled nerve block in OR at 0930. Secured with large opsite and paper tape. Pt. d/c'd amb. to OR waiting room per self.
[2023-02-02 09:22] LABS: Alanine Aminotransferase 19 U/L (14-59); Albumin Globulin Ratio 1.1; Albumin Level 3.6 g/dL (3.4-5.0); Alkaline Phosphatase 110 U/L (46-116); Anion Gap 11.8; Aspartate Amino Transferase 24 U/L (15-37); BUN Creatinine Ratio 27.2; Bilirubin Total 0.4 mg/dL (0.2-1.0); Calcium 8.2 mg/dL (8.5-10.1); Carbon Dioxide 27.8 mmol/L (21.0-32.0); Chloride 90 mmol/L (98-107); Estimated GFR (African America 53 (>=60); Estimated GFR (Non-African Ame 44 (>=60); Globulin 3.2 g/dL; Glucose 105 mg/dL (74-106); Potassium 3.6 mmol/L (3.5-5.1); Sodium 126 mmol/L (136-145); Total Protein 6.8 g/dL (6.4-8.2)
[2023-02-02 09:35] LABS: Basophils Percent Auto 0.5 % (0.2-2.0); Eosinophils Percent Auto 0.9 % (0.9-7.0); Hematocrit 40.4 % (36.0-48.0); Hemoglobin 13.4 g/dL (12.0-16.0); Immature Granulocytes Abs Auto 0.02 10^3/uL (0.00-0.03); Immature Granulocytes Pct Auto 0.5 % (0.0-0.5); Lymphocytes Absolute Auto 0.6 10^3/uL (1.2-3.8); Lymphocytes Percent Auto 13.9 % (20.5-60.0); Mean Corpuscular HGB Conc 33.2 g/dL (29.9-35.2); Mean Corpuscular Hemoglobin 30.3 pg (26.7-34.0); Mean Corpuscular Volume 91.4 fL (81.0-99.0); Mean Platelet Volume 9.1 fL (9.5-13.5); Monocytes Absolute Auto 0.3 10^3/uL (0.3-0.8); Monocytes Percent Auto 6.7 % (1.7-12.0); Neutrophils Absolute Auto 3.4 10^3/uL (1.4-6.5); Neutrophils Percent Auto 77.5 % (43.0-75.0); Platelet Count 226 10^3/uL (150-450); Red Blood Count 4.42 10^6/uL (4.20-5.40); Red Cell Distribution Width 14.5 % (11.0-15.0); White Blood Count 4.3 10^3/uL (4.0-11.0)
--- NOTE | 2023-02-15 16:01 | PC.NURSE ---
1535 Arrived ambulatory for port draw and port flush. Alert oriented to recliner 1. Rt chest port accessed usiing sterile technique. excellent blood return noted. Labs drawn sent to lab. Flushwed with heparin flush deaccessed port band aid applied. Released ambulatory
[2023-02-15] MEDS: HEPARIN SODIUM (PORCINE) PF LOCK FLUSH 500 UNIT/5 ML SYRINGE IV (16:04)
[2023-02-15 16:30] LABS: Basophils Percent Auto 0.3 % (0.2-2.0); Eosinophils Absolute Auto 0.1 10^3/uL (0.0-0.7); Eosinophils Percent Auto 2.1 % (0.9-7.0); Hematocrit 31.8 % (36.0-48.0); Hemoglobin 10.1 g/dL (12.0-16.0); Immature Granulocytes Abs Auto 0.02 10^3/uL (0.00-0.03); Immature Granulocytes Pct Auto 0.3 % (0.0-0.5); Lymphocytes Absolute Auto 1.6 10^3/uL (1.2-3.8); Mean Corpuscular HGB Conc 31.8 g/dL (29.9-35.2); Mean Corpuscular Hemoglobin 30.8 pg (26.7-34.0); Mean Platelet Volume 9.3 fL (9.5-13.5); Monocytes Absolute Auto 0.5 10^3/uL (0.3-0.8); Monocytes Percent Auto 8.4 % (1.7-12.0); Neutrophils Absolute Auto 3.9 10^3/uL (1.4-6.5); Neutrophils Percent Auto 62.9 % (43.0-75.0); Platelet Count 279 10^3/uL (150-450); Red Blood Count 3.28 10^6/uL (4.20-5.40); Red Cell Distribution Width 14.6 % (11.0-15.0); White Blood Count 6.2 10^3/uL (4.0-11.0)
[2023-02-15 17:01] LABS: Alanine Aminotransferase 23 U/L (14-59); Albumin Globulin Ratio 1.2; Albumin Level 3.8 g/dL (3.4-5.0); Alkaline Phosphatase 105 U/L (46-116); Anion Gap 11.8; Aspartate Amino Transferase 26 U/L (15-37); BUN Creatinine Ratio 27.9; Bilirubin Total 0.2 mg/dL (0.2-1.0); Calcium 9.2 mg/dL (8.5-10.1); Carbon Dioxide 29.4 mmol/L (21.0-32.0); Chloride 97 mmol/L (98-107); Estimated GFR (African America 48 (>=60); Estimated GFR (Non-African Ame 40 (>=60); Globulin 3.1 g/dL; Glucose 84 mg/dL (74-106); Potassium 4.2 mmol/L (3.5-5.1); Sodium 134 mmol/L (136-145); Total Protein 6.9 g/dL (6.4-8.2)
[2023-02-23 15:05] VITALS: BP 165/99; PULSE 80; RESP 18; TEMP 36.6; O2SAT 98
--- NOTE | 2023-02-23 15:15 | PC.NURSE ---
Pt. to [facility] amb. accompanied by friend. Seated in recliner. VSS. Using sterile technique, right ant. chest port accessed using #19 gauge Stovall needle. Flushes easily with good blood return with aspiration. Blood drawn for ordered labs. Port flushed with saline,10ML and Heparin,500 units. Port de-accessed. Pt. tolerated without c/o. Bandaid placed over port insertion site prophylactically.Pt. d/c'd amb. to home with friend.
[2023-02-23] MEDS: HEPARIN SODIUM (PORCINE) PF LOCK FLUSH 500 UNIT/5 ML SYRINGE IV (15:19)
[2023-02-23 16:31] LABS: Basophils Percent Auto 0.3 % (0.2-2.0); Eosinophils Absolute Auto 0.1 10^3/uL (0.0-0.7); Eosinophils Percent Auto 1.4 % (0.9-7.0); Hematocrit 34.3 % (36.0-48.0); Immature Granulocytes Abs Auto 0.02 10^3/uL (0.00-0.03); Immature Granulocytes Pct Auto 0.3 % (0.0-0.5); Lymphocytes Absolute Auto 0.8 10^3/uL (1.2-3.8); Lymphocytes Percent Auto 14.1 % (20.5-60.0); Mean Corpuscular HGB Conc 32.1 g/dL (29.9-35.2); Mean Corpuscular Hemoglobin 30.8 pg (26.7-34.0); Mean Corpuscular Volume 96.1 fL (81.0-99.0); Mean Platelet Volume 9.4 fL (9.5-13.5); Monocytes Absolute Auto 0.5 10^3/uL (0.3-0.8); Monocytes Percent Auto 7.9 % (1.7-12.0); Neutrophils Absolute Auto 4.4 10^3/uL (1.4-6.5); Platelet Count 249 10^3/uL (150-450); Red Blood Count 3.57 10^6/uL (4.20-5.40); Red Cell Distribution Width 14.4 % (11.0-15.0); White Blood Count 5.7 10^3/uL (4.0-11.0)
[2023-02-23 16:44] LABS: Alanine Aminotransferase 25 U/L (14-59); Albumin Globulin Ratio 1.2; Albumin Level 3.6 g/dL (3.4-5.0); Alkaline Phosphatase 110 U/L (46-116); Anion Gap 5.2; Aspartate Amino Transferase 26 U/L (15-37); BUN Creatinine Ratio 41.8; Bilirubin Total 0.4 mg/dL (0.2-1.0); Calcium 8.1 mg/dL (8.5-10.1); Carbon Dioxide 30.4 mmol/L (21.0-32.0); Chloride 98 mmol/L (98-107); Estimated GFR (African America 49 (>=60); Estimated GFR (Non-African Ame 40 (>=60); Globulin 3.1 g/dL; Glucose 88 mg/dL (74-106); Potassium 3.6 mmol/L (3.5-5.1); Sodium 130 mmol/L (136-145); Total Protein 6.7 g/dL (6.4-8.2)
== END 2023-02-23 23:59 | disposition home or self-care (01) ==
LOC: INF 14:00
PROVIDERS: PCP Family Medicine; Visit Provider Family Medicine
DX: I10 Essential (primary) hypertension (principal); E87.1 Hypo-osmolality and hyponatremia
CPT/HCPCS: 36415; 36591; 80053; 83930; 85025

== ENCOUNTER 2023-03-07 10:46 | Outpatient (OUT) | payer MEDICARE, MEDICAID, SELFPAY ==
--- NOTE | 2023-03-07 10:48 | VEIN_ITS ---
Patient: JOSE CLEMENTS Exam Date: 03/07/2023 : 1960 Gender:F Ordering : DR Yuri Godinez . Admission #: [id number] Family : Order #: [id number] CLICK HERE TO VIEW EXAM RADIOLOGY REPORT PROCEDURE: FACILITY [facility] - OFFICE VISIT INITIAL COMPARISON: None. PROGRESS NOTES: 63-year-old female who presents with a long history of lower extremity pain swelling and varicose veins. The patient developed severe lower extremity cramps most significant along the left thigh approximately 1 year ago. The patient has been worked up for multiple disease processes with no solution to her cramping. The patient describes the cramping as occurring day or night, more during the night, severe in nature. The patient describes severe cramping bilateral calf, thighs and shins but most significant in the left thigh. The patient's symptoms are minimally relieved by rest, leg elevation, exercise and over the counter as well as prescription pain medication. The patient's history is significant for episode of pulmonary embolus in 1982 following gallbladder surgery and for provoked deep vein thrombus in 2012 following a stroke. The patient is not currently on anticoagulation. The patient denies any signs and symptoms to suggest arterial ischemia. The patient describes a family history significant for cancer in diabetes and aneurysm in mother, deep vein thrombus in both parents. . The patient's son Ang has alpha-1 antitrypsin deficiency with liver failure. The patient has never smoked. No alcohol or illicit drug use currently. Patient's past medical history is significant for COPD, peripheral neuropathy, stroke, bilateral leg edema, edema, left ventricular hypertrophy, spinal stenosis requiring surgery, renal disease, congestive heart failure. The patient had 2 gastric bypass surgeries with weight loss from 450-150 pounds. See separate history and physical for medication list. Patient has worn compression stockings for approximately 1-2 years. Nursing notes were reviewed. After history and physical exam I discussed at length the pathophysiology of venous hypertension and possible treatments, therapies and strategies available. We discussed at length the importance of elevating the lower extremities above the level of the heart, increased physical activity and compression stocking use. We discussed conservative therapy with bilateral compression stockings. We discussed surgical interventions including ligation and phlebectomy. We discussed intravenous laser ablation, micro foam chemical ablation and injection sclerotherapy. Risks , benefits and alternatives were discussed at length. The patient's questions were answered. I did inform the patient that her cramping is atypical severity of her disease process and there is a good chance that they were unrelated. However in light of the patient's cramping being most significant in the left thigh Ultrasound venous reflux study performed December 23, 2022 was discussed at length with the patient. The report demonstrates mild right and moderate left great saphenous vein venous insufficiency. Mild right and moderate left anterior accessory saphenous vein venous insufficiency. Moderate right and mild left deep vein reflux. Bilateral incompetent varicose veins PHYSICAL EXAM: The right leg demonstrates extensive loose skin from her large weight loss. A few scattered varicose reticular and spider veins are observed. No subcutaneous edema, skin discoloration or active ulceration. The left leg demonstrates extensive loose skin from her large weight loss. A few scattered varicose reticular and spider veins are observed. No subcutaneous edema, skin discoloration or active ulceration. Both thighs, legs and feet were symmetrically warm to the touch. Good posterior tibial and dorsalis pedis pulses were present bilaterally. VEIN/VC Facility EST Comprehensive IMPRESSION: 1. Mild right and moderate left great saphenous vein, mild right and moderate left anterior accessory saphenous vein venous insufficiency with saphenofemoral junction reflux and dilatation 2. Mild to moderate bilat lower extremity varicose veins 3. No definite lower extremity subcutaneous edema on today's exam 4. No definite flow significant arterial disease 5. CEAP: C2, Ep, As, Pr PLAN: 1. Endovenous laser ablation left great saphenous followed by left anterior accessory saphenous vein. The patient has good results we will revisit treatment of the right leg 2. Bilateral lower extremity micro foam chemical ablation of incompetent varicose veins 3. Injection sclerotherapy of reticular veins 4. Elevated legs and continued physical activity for symptomatic relief Nurse notes, history and physical were reviewed and confirmed, see attached forms. The nurse was present throughout the physical exam and consultation Dictated by: Rojas Rivera MD on 03/07/2023 at 12:53 Approved by: Rojas Rivera MD on 03/07/2023 at 13:10
== END 2023-03-07 10:47 | disposition home or self-care (01) ==
LOC: VC 10:46
PROVIDERS: PCP Family Medicine; Visit Provider Family Medicine
DX: R60.0 Localized edema (principal); I89.0 Lymphedema, not elsewhere classified
CPT/HCPCS: G0463

== ENCOUNTER 2023-03-21 07:41 | Outpatient (RCR) | payer MEDICARE, MEDICAID, SELFPAY ==
[2023-03-21 11:57] LABS: Basophils Percent Auto 0.3 % (0.2-2.0); Eosinophils Absolute Auto 0.1 10^3/uL (0.0-0.7); Eosinophils Percent Auto 1.8 % (0.9-7.0); Hematocrit 33.7 % (36.0-48.0); Hemoglobin 10.9 g/dL (12.0-16.0); Immature Granulocytes Abs Auto 0.02 10^3/uL (0.00-0.03); Immature Granulocytes Pct Auto 0.3 % (0.0-0.5); Lymphocytes Absolute Auto 0.9 10^3/uL (1.2-3.8); Lymphocytes Percent Auto 13.8 % (20.5-60.0); Mean Corpuscular HGB Conc 32.3 g/dL (29.9-35.2); Mean Corpuscular Hemoglobin 31.1 pg (26.7-34.0); Mean Corpuscular Volume 96.3 fL (81.0-99.0); Mean Platelet Volume 9.2 fL (9.5-13.5); Monocytes Absolute Auto 0.4 10^3/uL (0.3-0.8); Monocytes Percent Auto 6.6 % (1.7-12.0); Neutrophils Absolute Auto 4.8 10^3/uL (1.4-6.5); Neutrophils Percent Auto 77.2 % (43.0-75.0); Platelet Count 241 10^3/uL (150-450); Red Cell Distribution Width 13.5 % (11.0-15.0); White Blood Count 6.2 10^3/uL (4.0-11.0)
[2023-03-21 12:53] LABS: Percent Iron Saturation 22.1 %
== END 2023-03-25 23:59 | disposition home or self-care (01) ==
LOC: INF 07:41
PROVIDERS: PCP Family Medicine; Visit Provider Internal Medicine Hematology & Oncology
DX: I10 Essential (primary) hypertension (principal); E87.1 Hypo-osmolality and hyponatremia; D63.1 Anemia in chronic kidney disease; K90.9 Intestinal malabsorption, unspecified
CPT/HCPCS: 36415; 36591; 80053; 82728; 83540; 83550; 83930; 85025; G0463

== ENCOUNTER 2023-03-21 11:27 | Outpatient (OUT) | payer MEDICARE, MEDICAID, SELFPAY ==
[2023-03-21 13:13] LABS: Alanine Aminotransferase 27 U/L (14-59); Albumin Globulin Ratio 1.1; Albumin Level 3.5 g/dL (3.4-5.0); Alkaline Phosphatase 116 U/L (46-116); Anion Gap 13.1; Aspartate Amino Transferase 27 U/L (15-37); BUN Creatinine Ratio 35.6; Bilirubin Total 0.3 mg/dL (0.2-1.0); Calcium 9.1 mg/dL (8.5-10.1); Carbon Dioxide 27.8 mmol/L (21.0-32.0); Chloride 98 mmol/L (98-107); Estimated GFR (African America 35 (>=60); Estimated GFR (Non-African Ame 29 (>=60); Globulin 3.3 g/dL; Glucose 82 mg/dL (74-106); Potassium 3.9 mmol/L (3.5-5.1); Sodium 135 mmol/L (136-145); Total Protein 6.8 g/dL (6.4-8.2)
== END 2023-03-21 11:28 | disposition home or self-care (01) ==
LOC: LAB 11:30
PROVIDERS: PCP Family Medicine; Visit Provider Family Medicine
DX: I10 Essential (primary) hypertension (principal); E87.1 Hypo-osmolality and hyponatremia
CPT/HCPCS: 36415; 80053; 83930

== ENCOUNTER 2023-03-21 14:30 | Outpatient (RCR) | payer MEDICARE, MEDICAID, SELFPAY ==
[2023-03-02 11:30] VITALS: BP 123/73; PULSE 71; RESP 16; TEMP 36.7; O2SAT 100
--- NOTE | 2023-03-02 11:30 | PC.NURSE ---
1130: Pt. to [facility] amb. for weekly blood draw. VSS. Using sterile technique, right ant. chest port accessed using #19 gauge Stovall needle. Flushes easily with easy aspiration of blood. Specimen drawn for labs. Port flushed with Heparin 500 units. Port de-accessed. Pt. tolerated without c/o. 1145: Pt. d/c'd amb. to home.
[2023-03-02] MEDS: HEPARIN SODIUM (PORCINE) PF LOCK FLUSH 500 UNIT/5 ML SYRINGE IV (11:45)
[2023-03-02 12:30] LABS: Basophils Percent Auto 0.6 % (0.2-2.0); Eosinophils Absolute Auto 0.2 10^3/uL (0.0-0.7); Eosinophils Percent Auto 3.1 % (0.9-7.0); Hemoglobin 10.6 g/dL (12.0-16.0); Immature Granulocytes Abs Auto 0.02 10^3/uL (0.00-0.03); Immature Granulocytes Pct Auto 0.4 % (0.0-0.5); Lymphocytes Absolute Auto 1.5 10^3/uL (1.2-3.8); Lymphocytes Percent Auto 28.9 % (20.5-60.0); Mean Corpuscular HGB Conc 32.1 g/dL (29.9-35.2); Mean Corpuscular Hemoglobin 30.7 pg (26.7-34.0); Mean Corpuscular Volume 95.7 fL (81.0-99.0); Mean Platelet Volume 9.6 fL (9.5-13.5); Monocytes Absolute Auto 0.5 10^3/uL (0.3-0.8); Monocytes Percent Auto 10.5 % (1.7-12.0); Neutrophils Absolute Auto 2.9 10^3/uL (1.4-6.5); Neutrophils Percent Auto 56.5 % (43.0-75.0); Platelet Count 274 10^3/uL (150-450); Red Blood Count 3.45 10^6/uL (4.20-5.40); Red Cell Distribution Width 14.2 % (11.0-15.0); White Blood Count 5.2 10^3/uL (4.0-11.0)
[2023-03-02 12:51] LABS: Alanine Aminotransferase 16 U/L (14-59); Albumin Globulin Ratio 1.2; Albumin Level 3.7 g/dL (3.4-5.0); Alkaline Phosphatase 112 U/L (46-116); Anion Gap 10.4; Aspartate Amino Transferase 26 U/L (15-37); BUN Creatinine Ratio 35.9; Bilirubin Total 0.3 mg/dL (0.2-1.0); Carbon Dioxide 30.6 mmol/L (21.0-32.0); Chloride 96 mmol/L (98-107); Estimated GFR (African America 32 (>=60); Estimated GFR (Non-African Ame 27 (>=60); Glucose 79 mg/dL (74-106); Sodium 133 mmol/L (136-145); Total Protein 6.7 g/dL (6.4-8.2)
[2023-03-08 12:30] VITALS: BP 142/71; PULSE 68; RESP 20; TEMP 36.6; O2SAT 97
--- NOTE | 2023-03-08 12:40 | PC.NURSE ---
1230: Pt. to [facility] amb. for port draw. Seated in recliner. VSS. Using sterile technique, right ant. chest port accessed using 19 gauge james needle. Flushes easily and able to aspirate blood easily. Blood drawn for ordered labs. Port flushed with Heparin, 500units IVP. Port de-accessed. No bleeding to site. Pt. tolerated all without c/o. 1240: Pt. d/c'd amb. to home.
[2023-03-08 13:04] LABS: Basophils Percent Auto 0.5 % (0.2-2.0); Eosinophils Absolute Auto 0.1 10^3/uL (0.0-0.7); Eosinophils Percent Auto 1.7 % (0.9-7.0); Hematocrit 34.9 % (36.0-48.0); Hemoglobin 11.6 g/dL (12.0-16.0); Immature Granulocytes Abs Auto 0.02 10^3/uL (0.00-0.03); Immature Granulocytes Pct Auto 0.3 % (0.0-0.5); Lymphocytes Absolute Auto 1.3 10^3/uL (1.2-3.8); Lymphocytes Percent Auto 22.2 % (20.5-60.0); Mean Corpuscular HGB Conc 33.2 g/dL (29.9-35.2); Mean Corpuscular Hemoglobin 31.5 pg (26.7-34.0); Mean Corpuscular Volume 94.8 fL (81.0-99.0); Mean Platelet Volume 9.3 fL (9.5-13.5); Monocytes Absolute Auto 0.5 10^3/uL (0.3-0.8); Monocytes Percent Auto 7.8 % (1.7-12.0); Neutrophils Absolute Auto 3.9 10^3/uL (1.4-6.5); Neutrophils Percent Auto 67.5 % (43.0-75.0); Platelet Count 302 10^3/uL (150-450); Red Blood Count 3.68 10^6/uL (4.20-5.40); Red Cell Distribution Width 13.5 % (11.0-15.0); White Blood Count 5.8 10^3/uL (4.0-11.0)
[2023-03-08 13:40] LABS: Alanine Aminotransferase 26 U/L (14-59); Albumin Globulin Ratio 1.2; Albumin Level 3.7 g/dL (3.4-5.0); Alkaline Phosphatase 113 U/L (46-116); Aspartate Amino Transferase 23 U/L (15-37); BUN Creatinine Ratio 25.9; Bilirubin Total 0.5 mg/dL (0.2-1.0); Calcium 8.7 mg/dL (8.5-10.1); Carbon Dioxide 29.2 mmol/L (21.0-32.0); Chloride 94 mmol/L (98-107); Estimated GFR (African America 45 (>=60); Estimated GFR (Non-African Ame 37 (>=60); Globulin 3.2 g/dL; Glucose 84 mg/dL (74-106); Potassium 4.2 mmol/L (3.5-5.1); Sodium 131 mmol/L (136-145); Total Protein 6.9 g/dL (6.4-8.2)
== END 2023-03-25 23:59 | disposition home or self-care (01) ==
LOC: INF 14:30
PROVIDERS: PCP Family Medicine; Visit Provider Family Medicine
DX: D50.9 Iron deficiency anemia, unspecified (principal); K90.9 Intestinal malabsorption, unspecified; D63.1 Anemia in chronic kidney disease; I10 Essential (primary) hypertension; E87.1 Hypo-osmolality and hyponatremia
CPT/HCPCS: 36415; 36591; 36593; 80053; 82728; 83540; 83550; 83930; 85025

== ENCOUNTER 2023-03-23 10:22 | Outpatient (OUT) | payer MEDICARE, MEDICAID, SELFPAY ==
--- NOTE | 2023-03-23 10:27 | XR_ITS ---
The [address] [address] Patient Name: JOSE CLEMENTS MRN: [id number] date: 1960 Sex: F Assigned Patient Location: [facility] Current Patient Location: [facility] Accession/Order Number: [id number] Exam Date: 03/23/2023 10:36 Report Date: 03/23/2023 13:35 At the request of: ANGLE SANTANA Procedure: XR ribs RT min 3V w CXR1V EXAMINATION: XR ribs RT min 3V w CXR1V HISTORY: Unspecified Fall W19.XXXA, Pleurodynia R07.81 ; acute right rib pain COMPARISON: No relevant comparison available. FINDINGS: LUNGS: Underexpanded lungs without appreciable infiltrates. PLEURA: No pneumothorax, effusion, or pleural thickening. MEDIASTINUM: No visible mass or adenopathy. CARDIAC: No cardiomegaly or cardiac silhouette abnormality. RIBS: No acute fracture. Old, healed left rib fractures. OTHER: Degenerative changes of the shoulder joints. Right Port-A-Cath with tip at cavoatrial junction. Scoliotic curvature of thoracic spine and mechanical fusion of lumbar spine. XR/XR ribs RT min 3V w CXR1V IMPRESSION: 1. No acute cardiopulmonary process. 2. No acute rib fracture or specific findings to account for patient's symptoms. Electronically authenticated by: BUNNY ZEPEDA Date: 03/23/2023 13:35
--- NOTE | 2023-03-23 10:27 | XR_ITS ---
The [address] [address] Patient Name: JOSE CLEMENTS MRN: [id number] date: 1960 Sex: F Assigned Patient Location: [facility] Current Patient Location: [facility] Accession/Order Number: [id number] Exam Date: 03/23/2023 10:36 Report Date: 03/23/2023 13:28 At the request of: ANGLE SANTANA Procedure: XR lumbar spine 2-3V EXAMINATION: XR lumbar spine 2-3V HISTORY: Pleurodynia R07.81, Unspecified Fall W19.XXXA COMPARISON: CT lumbar spine 08/06/2022 FINDINGS: BONES: Mechanical fusion L2-3-4 via bilateral pedicle screws and rods; no evidence of hardware fracture or loosening. No bone fracture or spondylolisthesis. Posterior decompression of L4. Osseous fusion of the facet joints L2-S1. DISC SPACES: Intervertebral disc spacer L3-4. Mild narrowing L2-3 and L4-5. Marked narrowing L5-S1 versus developmental variant partial sacralization of L5. PARASPINOUS: Negative. No paraspinous abnormality is seen. OTHER: Negative. XR/XR lumbar spine 2-3V IMPRESSION: 1. Stable surgical changes without evidence of hardware failure or change in alignment. 2. Grossly stable multilevel degenerative disc disease. Electronically authenticated by: BUNNY ZEPEDA Date: 03/23/2023 13:28
--- NOTE | 2023-03-23 10:27 | XR_ITS ---
The [address] [address] Patient Name: JOSE CLEMENTS MRN: [id number] date: 1960 Sex: F Assigned Patient Location: [facility] Current Patient Location: [facility] Accession/Order Number: [id number] Exam Date: 03/23/2023 10:36 Report Date: 03/23/2023 13:20 At the request of: ANGLE SANTANA Procedure: XR thoracic spine 2V EXAMINATION: XR thoracic spine 2V HISTORY: Pleurodynia R07.81, Dorsalgia COMPARISON: No relevant comparison available. FINDINGS: BONES: Scoliotic curvature of thoracolumbar spine. No compression fracture or spondylolisthesis. DISC SPACES: Multilevel mild/moderate degenerative disc disease of the midthoracic levels. Mechanical fusion of the visible lumbar spine. PARASPINOUS: Negative. No paraspinous abnormality is seen. OTHER: Right Port-A-Cath with tip at cavoatrial junction. XR/XR thoracic spine 2V IMPRESSION: 1. Moderate scoliotic curvature and multilevel moderate degenerative changes. 2. No fracture. Electronically authenticated by: BUNNY ZEPEDA Date: 03/23/2023 13:20
== END 2023-03-23 10:23 | disposition home or self-care (01) ==
LOC: RAD 10:23
PROVIDERS: PCP Family Medicine; Visit Provider Family Medicine
DX: I10 Essential (primary) hypertension (principal); N28.9 Disorder of kidney and ureter, unspecified; D64.9 Anemia, unspecified; E87.1 Hypo-osmolality and hyponatremia; M53.84 Other specified dorsopathies, thoracic region; Z98.1 Arthrodesis status; Z95.5 Presence of coronary angioplasty implant and graft
CPT/HCPCS: 71101; 72070; 72100

== ENCOUNTER 2023-03-28 12:30 | Outpatient (OUT) | payer MEDICARE, MEDICAID, SELFPAY ==
[2023-03-28 14:25] LABS: Magnesium 2.2 mg/dL (1.8-2.4); Phosphorus 4.9 mg/dL (2.6-4.7); Uric Acid 7.6 mg/dL (2.6-6.0)
[2023-03-28 14:46] LABS: Total Protein Urine Random <6.0 mg/dL (<=11.9)
[2023-03-28 14:51] LABS: Bilirubin Urine NEGATIVE (NEGATIVE); Blood Urine NEGATIVE (NEGATIVE); Clarity Urine CLEAR (CLEAR); Color Urine YELLOW (YELLOW); Glucose Urine UA NEGATIVE (NEGATIVE); Ketones Urine NEGATIVE (NEGATIVE); Leukocyte Esterase Urine TRACE (NEGATIVE); Nitrite Urine NEGATIVE (NEGATIVE); Protein Urine NEGATIVE (NEG/TRACE); Specific Gravity Urine <=1.005 (1.005-1.025); Urobilinogen Urine 0.2 EU/dL (0.2-1.0)
[2023-03-29 11:09] LABS: PTH, Intact 140 pg/mL (15-65)
[2023-04-18 13:12] VITALS: TEMP 36.4
== END 2023-03-28 12:31 | disposition home or self-care (01) ==
LOC: INF 12:31
PROVIDERS: PCP Family Medicine; Visit Provider Internal Medicine Nephrology
DX: I12.9 Hypertensive chronic kidney disease with stage 1 through stage 4 chronic kidney disease, or unspecified chronic kidney disease (principal); N18.31 Chronic kidney disease, stage 3a; E78.5 Hyperlipidemia, unspecified; E87.1 Hypo-osmolality and hyponatremia; I50.9 Heart failure, unspecified; D63.1 Anemia in chronic kidney disease; N25.81 Secondary hyperparathyroidism of renal origin; E55.9 Vitamin D deficiency, unspecified; G43.519 Persistent migraine aura without cerebral infarction, intractable, without status migrainosus
CPT/HCPCS: 36415; 81003; 82306; 82570; 83735; 83970; 84100; 84156; 84550

== ENCOUNTER 2023-04-11 09:08 | Day surgery (SDC) | payer MEDICARE, MEDICAID, SELFPAY ==
[2023-04-11 09:47] VITALS: BP 127/77; PULSE 89; RESP 16; TEMP 36.3; O2SAT 100
[2023-04-11] MEDS: 0.9 % SODIUM CHLORIDE 500 ML IV (10:05)
[2023-04-11] MEDS: METHYLPREDNISOLONE ACETATE 40 MG/ML VIAL INJ (10:48)
[2023-04-11] MEDS: BUPIVACAINE HCL 0.25% PF 25 MG/10 ML VIAL 4 ML INJ (10:48)
[2023-04-11] MEDS: LIDOCAINE HCL 2% 400 MG/20 ML MDV 10 ML INJ (10:48)
[2023-04-11 10:59] VITALS: BP 116/75; PULSE 79; RESP 16; TEMP 36.4; O2SAT 100
[2023-04-11 11:02] VITALS: BP 111/67; PULSE 79; RESP 16; TEMP 36.4; O2SAT 96
[2023-04-11] MEDS: HEPARIN SODIUM (PORCINE) PF LOCK FLUSH 500 UNIT/5 ML SYRINGE 250 UNIT IV (11:08)
--- NOTE | 2023-04-11 11:48 | W.PM.PROCNOT ---
Date of procedure: 04/11/23 Pre-op diagnosis: Lumbar Spondylosis Post-op diagnosis: same as pre-op Procedure: Left Lumbar 4/5, 5/sacral 1 Radiofrequency ablation Under fluoroscopic guidance Rhizotomy was created using radio frequency ablation at 80?C for 90 seconds 1 to 2 lesions created at each site. Post lesioning injection of 2 mL each of 0.25% Marcaine and 2% lidocaine with Depo-Medrol 40mg. 0.5 to 1 mL injected at each site IV in place yes If Intravenous fluids: NS at KVO Anesthesia local 2% lidocaine for Anesthesia Other: MAC Timeout process compliant After informed consent obtained.Patient brought to the procedure room placed in the prone position skin overlying the area was prepped and draped in a sterile fashion using betadine. 25 gauge needle was used to create a skin wheal over each of the targeted areas utilizing 2% lidocaine. A rhizotomy needle with a 10 mm active tip was inserted over each of the anesthetized areas and directed towards each of the medial branches accomplished under fluoroscopic guidance. after encountering the same we had positive sensory stimulation, negative motor stimulation was noted. lesions were then created. Post lesioning, steroid solution was injected needles removed. Patient was transferred to recovery room in stable condition to be discharged home after meeting criteria. Anesthesia: MAC Surgeon: Terry David Condition: stable
== END 2023-04-11 11:19 | disposition home or self-care (01) ==
LOC: SURGOUT 09:09
PROVIDERS: PCP Family Medicine; Visit Provider Anesthesiology Pain Medicine
PROC: (CPT 1992; principal; 2023-04-11 10:10)
DX: M47.816 Spondylosis without myelopathy or radiculopathy, lumbar region (principal)
CPT/HCPCS: 64635; 64636; J1030; J2704

== ENCOUNTER 2023-04-18 13:30 | Outpatient (RCR) | payer MEDICARE, MEDICAID, SELFPAY ==
[2023-03-28 14:35] LABS: Alanine Aminotransferase 29 U/L (14-59); Albumin Level 3.6 g/dL (3.4-5.0); Alkaline Phosphatase 128 U/L (46-116); Anion Gap 11.5; Aspartate Amino Transferase 31 U/L (15-37); BUN Creatinine Ratio 33.3; Bilirubin Total 0.3 mg/dL (0.2-1.0); Carbon Dioxide 28.8 mmol/L (21.0-32.0); Chloride 96 mmol/L (98-107); Estimated GFR (African America 37 (>=60); Estimated GFR (Non-African Ame 30 (>=60); Globulin 3.6 g/dL; Glucose 73 mg/dL (74-106); Potassium 4.3 mmol/L (3.5-5.1); Sodium 132 mmol/L (136-145); Total Protein 7.2 g/dL (6.4-8.2)
[2023-04-12 10:15] VITALS: BP 145/99; PULSE 73; RESP 18; TEMP 37.1; O2SAT 97
--- NOTE | 2023-04-12 10:18 | PC.NURSE ---
Rt Chest port accessed under sterile technique, with #19ga james needle. excellent blood return, labs drawn, flushed with 20 ml NS followed by hep lock flush. deaccessed, cotton ball applied.
[2023-04-12 11:40] LABS: Alanine Aminotransferase 24 U/L (14-59); Albumin Globulin Ratio 1.1; Albumin Level 3.7 g/dL (3.4-5.0); Alkaline Phosphatase 154 U/L (46-116); Anion Gap 12.6; Aspartate Amino Transferase 31 U/L (15-37); BUN Creatinine Ratio 22.4; Bilirubin Total 0.3 mg/dL (0.2-1.0); Calcium 8.7 mg/dL (8.5-10.1); Carbon Dioxide 26.7 mmol/L (21.0-32.0); Chloride 94 mmol/L (98-107); Estimated GFR (African America 31 (>=60); Estimated GFR (Non-African Ame 26 (>=60); Globulin 3.5 g/dL; Glucose 71 mg/dL (74-106); Potassium 4.3 mmol/L (3.5-5.1); Sodium 129 mmol/L (136-145); Total Protein 7.2 g/dL (6.4-8.2)
[2023-04-12] MEDS: HEPARIN SODIUM (PORCINE) PF LOCK FLUSH 500 UNIT/5 ML SYRINGE IV (12:55)
--- NOTE | 2023-04-18 13:24 | PC.NURSE ---
1255 Arrival ambulatory. alert oriented. Rt chest port accessed per Colni RN using 19ga james needle, excellent blood return. labsdrawn, sent to lab. port flushed with normal saline followed by hep lock flush, deaccessed. tolerated well. Released ambulatory
[2023-04-18 13:50] LABS: Basophils Percent Auto 0.3 % (0.2-2.0); Eosinophils Percent Auto 0.4 % (0.9-7.0); Hematocrit 33.5 % (36.0-48.0); Hemoglobin 10.8 g/dL (12.0-16.0); Immature Granulocytes Abs Auto 0.02 10^3/uL (0.00-0.03); Immature Granulocytes Pct Auto 0.3 % (0.0-0.5); Lymphocytes Absolute Auto 1.1 10^3/uL (1.2-3.8); Lymphocytes Percent Auto 14.9 % (20.5-60.0); Mean Corpuscular HGB Conc 32.2 g/dL (29.9-35.2); Mean Corpuscular Hemoglobin 30.9 pg (26.7-34.0); Monocytes Absolute Auto 0.2 10^3/uL (0.3-0.8); Monocytes Percent Auto 3.2 % (1.7-12.0); Neutrophils Absolute Auto 6.1 10^3/uL (1.4-6.5); Neutrophils Percent Auto 80.9 % (43.0-75.0); Platelet Count 288 10^3/uL (150-450); Red Blood Count 3.49 10^6/uL (4.20-5.40); Red Cell Distribution Width 13.2 % (11.0-15.0); White Blood Count 7.6 10^3/uL (4.0-11.0)
[2023-04-18 14:06] LABS: Alanine Aminotransferase 22 U/L (14-59); Albumin Globulin Ratio 1.2; Albumin Level 3.7 g/dL (3.4-5.0); Alkaline Phosphatase 137 U/L (46-116); Anion Gap 13.6; Aspartate Amino Transferase 28 U/L (15-37); BUN Creatinine Ratio 27.3; Bilirubin Total 0.3 mg/dL (0.2-1.0); Calcium 8.9 mg/dL (8.5-10.1); Carbon Dioxide 25.4 mmol/L (21.0-32.0); Chloride 100 mmol/L (98-107); Estimated GFR (African America 37 (>=60); Estimated GFR (Non-African Ame 30 (>=60); Globulin 3.2 g/dL; Glucose 151 mg/dL (74-106); Sodium 135 mmol/L (136-145); Total Protein 6.9 g/dL (6.4-8.2)
== END 2023-04-25 23:59 | disposition home or self-care (01) ==
LOC: INF 13:30
PROVIDERS: PCP Family Medicine; Visit Provider Family Medicine
DX: I12.9 Hypertensive chronic kidney disease with stage 1 through stage 4 chronic kidney disease, or unspecified chronic kidney disease (principal); N18.32 Chronic kidney disease, stage 3b; E87.5 Hyperkalemia; E87.1 Hypo-osmolality and hyponatremia; I50.9 Heart failure, unspecified; D63.1 Anemia in chronic kidney disease; N25.81 Secondary hyperparathyroidism of renal origin; E55.9 Vitamin D deficiency, unspecified; G43.519 Persistent migraine aura without cerebral infarction, intractable, without status migrainosus; K90.9 Intestinal malabsorption, unspecified; D50.9 Iron deficiency anemia, unspecified
CPT/HCPCS: 36415; 36591; 80053; 81003; 82306; 82570; 83735; 83930; 83970; 84100; 84156; 84550; 85025

== ENCOUNTER 2023-04-25 07:27 | Outpatient (RCR) | payer MEDICARE, MEDICAID, SELFPAY ==
[2023-03-28 12:04] LABS: Basophils Percent Auto 0.3 % (0.2-2.0); Eosinophils Absolute Auto 0.1 10^3/uL (0.0-0.7); Eosinophils Percent Auto 1.8 % (0.9-7.0); Immature Granulocytes Abs Auto 0.02 10^3/uL (0.00-0.03); Immature Granulocytes Pct Auto 0.3 % (0.0-0.5); Lymphocytes Absolute Auto 1.2 10^3/uL (1.2-3.8); Lymphocytes Percent Auto 19.5 % (20.5-60.0); Mean Corpuscular HGB Conc 32.4 g/dL (29.9-35.2); Mean Corpuscular Hemoglobin 31.6 pg (26.7-34.0); Mean Corpuscular Volume 97.7 fL (81.0-99.0); Mean Platelet Volume 9.1 fL (9.5-13.5); Monocytes Absolute Auto 0.5 10^3/uL (0.3-0.8); Monocytes Percent Auto 8.6 % (1.7-12.0); Neutrophils Absolute Auto 4.2 10^3/uL (1.4-6.5); Neutrophils Percent Auto 69.5 % (43.0-75.0); Platelet Count 289 10^3/uL (150-450); Red Blood Count 3.48 10^6/uL (4.20-5.40); Red Cell Distribution Width 13.5 % (11.0-15.0); White Blood Count 6.1 10^3/uL (4.0-11.0)
--- NOTE | 2023-03-28 13:29 | PC.NURSE ---
1100 Arrived per ambulatory to chair 5. alert oriented no complaints offered. Rt chest port Accessed using 19 gauge james needle, excellent blood return, labs drawn. Flushed with NS. Awaiting labs from [employer] in [place]. 1200 Patient goes to ER to see son. We are to call when labs return. 1240 Called ER to let them know labs had returned. 1300 Returned to department remainder of labs drawn and sent to lab after receiving faxed order. Did not need retacrit today due to HG 11.1 1310 Flushed Port a cath with NSS followed by heparin lock soln. Deaccessed port, tolerated well.
[2023-04-12 09:58] LABS: Basophils Percent Auto 0.4 % (0.2-2.0); Eosinophils Absolute Auto 0.1 10^3/uL (0.0-0.7); Eosinophils Percent Auto 1.7 % (0.9-7.0); Hemoglobin 10.9 g/dL (12.0-16.0); Immature Granulocytes Abs Auto 0.05 10^3/uL (0.00-0.03); Immature Granulocytes Pct Auto 0.7 % (0.0-0.5); Lymphocytes Absolute Auto 1.5 10^3/uL (1.2-3.8); Lymphocytes Percent Auto 21.6 % (20.5-60.0); Mean Corpuscular HGB Conc 32.1 g/dL (29.9-35.2); Mean Corpuscular Hemoglobin 31.1 pg (26.7-34.0); Mean Corpuscular Volume 96.9 fL (81.0-99.0); Mean Platelet Volume 9.1 fL (9.5-13.5); Monocytes Absolute Auto 0.6 10^3/uL (0.3-0.8); Neutrophils Absolute Auto 4.7 10^3/uL (1.4-6.5); Neutrophils Percent Auto 66.6 % (43.0-75.0); Platelet Count 312 10^3/uL (150-450); Red Blood Count 3.51 10^6/uL (4.20-5.40)
--- NOTE | 2023-04-12 10:21 | PC.NURSE ---
Labs drawn from rt chest port, see documentation in [id number]
== END 2023-04-25 23:59 | disposition home or self-care (01) ==
LOC: INF 07:27
PROVIDERS: PCP Family Medicine; Visit Provider Internal Medicine Hematology & Oncology
DX: N18.32 Chronic kidney disease, stage 3b (principal); D63.1 Anemia in chronic kidney disease; D50.9 Iron deficiency anemia, unspecified; K90.9 Intestinal malabsorption, unspecified; I10 Essential (primary) hypertension; E87.1 Hypo-osmolality and hyponatremia; I12.9 Hypertensive chronic kidney disease with stage 1 through stage 4 chronic kidney disease, or unspecified chronic kidney disease
CPT/HCPCS: 36415; 85025

== ENCOUNTER 2023-05-25 07:27 | Outpatient (RCR) | payer MEDICARE, MEDICAID, SELFPAY ==
[2023-05-12] MEDS: HEPARIN SODIUM (PORCINE) PF LOCK FLUSH 500 UNIT/5 ML SYRINGE IV (13:15)
[2023-05-12 14:15] LABS: Basophils Percent Auto 0.3 % (0.2-2.0); Eosinophils Absolute Auto 0.1 10^3/uL (0.0-0.7); Eosinophils Percent Auto 1.3 % (0.9-7.0); Hematocrit 31.1 % (36.0-48.0); Hemoglobin 9.7 g/dL (12.0-16.0); Immature Granulocytes Abs Auto 0.03 10^3/uL (0.00-0.03); Immature Granulocytes Pct Auto 0.4 % (0.0-0.5); Lymphocytes Absolute Auto 1.1 10^3/uL (1.2-3.8); Lymphocytes Percent Auto 16.8 % (20.5-60.0); Mean Corpuscular HGB Conc 31.2 g/dL (29.9-35.2); Mean Corpuscular Hemoglobin 30.9 pg (26.7-34.0); Mean Platelet Volume 9.5 fL (9.5-13.5); Monocytes Absolute Auto 0.4 10^3/uL (0.3-0.8); Monocytes Percent Auto 6.6 % (1.7-12.0); Neutrophils Percent Auto 74.6 % (43.0-75.0); Platelet Count 255 10^3/uL (150-450); Red Blood Count 3.14 10^6/uL (4.20-5.40); Red Cell Distribution Width 13.6 % (11.0-15.0); White Blood Count 6.7 10^3/uL (4.0-11.0)
[2023-05-12 14:58] LABS: Alanine Aminotransferase 24 U/L (14-59); Albumin Globulin Ratio 1.1; Albumin Level 3.5 g/dL (3.4-5.0); Alkaline Phosphatase 113 U/L (46-116); Anion Gap 12.3; Aspartate Amino Transferase 23 U/L (15-37); BUN Creatinine Ratio 39.5; Bilirubin Total 0.4 mg/dL (0.2-1.0); Calcium 8.5 mg/dL (8.5-10.1); Carbon Dioxide 29.1 mmol/L (21.0-32.0); Chloride 101 mmol/L (98-107); Estimated GFR (African America 41 (>=60); Estimated GFR (Non-African Ame 33 (>=60); Globulin 3.2 g/dL; Glucose 90 mg/dL (74-106); Potassium 4.4 mmol/L (3.5-5.1); Sodium 138 mmol/L (136-145); Total Protein 6.7 g/dL (6.4-8.2)
[2023-05-12 15:39] VITALS: BP 134/78; PULSE 70; RESP 18; TEMP 36.4; O2SAT 98
--- NOTE | 2023-05-12 15:42 | PC.NURSE ---
accessed rt cchest port under sterile techniqe wit #19 ga james needle. tolerated well, excellent blood return, labs drawn and sent to lab. flushed with NS 20 ml, followed by hep lock flush, deaccessed, cotton ball applied to site. Released ambulatory
[2023-05-17 14:12] LABS: Basophils Percent Auto 0.3 % (0.2-2.0); Eosinophils Absolute Auto 0.1 10^3/uL (0.0-0.7); Eosinophils Percent Auto 1.4 % (0.9-7.0); Hematocrit 32.2 % (36.0-48.0); Hemoglobin 10.1 g/dL (12.0-16.0); Immature Granulocytes Abs Auto 0.03 10^3/uL (0.00-0.03); Immature Granulocytes Pct Auto 0.4 % (0.0-0.5); Lymphocytes Percent Auto 13.4 % (20.5-60.0); Mean Corpuscular HGB Conc 31.4 g/dL (29.9-35.2); Mean Corpuscular Hemoglobin 31.5 pg (26.7-34.0); Mean Corpuscular Volume 100.3 fL (81.0-99.0); Mean Platelet Volume 9.4 fL (9.5-13.5); Monocytes Absolute Auto 0.5 10^3/uL (0.3-0.8); Monocytes Percent Auto 6.1 % (1.7-12.0); Neutrophils Absolute Auto 5.8 10^3/uL (1.4-6.5); Neutrophils Percent Auto 78.4 % (43.0-75.0); Platelet Count 249 10^3/uL (150-450); Red Blood Count 3.21 10^6/uL (4.20-5.40); Red Cell Distribution Width 13.6 % (11.0-15.0); White Blood Count 7.3 10^3/uL (4.0-11.0)
[2023-05-17 14:24] LABS: Alanine Aminotransferase 23 U/L (14-59); Albumin Globulin Ratio 1.1; Albumin Level 3.5 g/dL (3.4-5.0); Alkaline Phosphatase 131 U/L (46-116); Anion Gap 13.3; Aspartate Amino Transferase 20 U/L (15-37); BUN Creatinine Ratio 41.7; Bilirubin Total 0.3 mg/dL (0.2-1.0); Calcium 8.5 mg/dL (8.5-10.1); Carbon Dioxide 28.3 mmol/L (21.0-32.0); Chloride 99 mmol/L (98-107); Estimated GFR (African America 41 (>=60); Estimated GFR (Non-African Ame 34 (>=60); Globulin 3.3 g/dL; Glucose 97 mg/dL (74-106); Potassium 4.6 mmol/L (3.5-5.1); Sodium 136 mmol/L (136-145); Total Protein 6.8 g/dL (6.4-8.2)
[2023-05-17 14:27] VITALS: BP 179/97; PULSE 89; RESP 18; TEMP 36.6; O2SAT 100
--- NOTE | 2023-05-17 14:29 | PC.NURSE ---
1330: Pt. in for weekly blood draw. VSS. Using sterile technique, right ant chest port accessed using #20 gauge Stovall needle. Flushes easily and able to aspirate blood without difficulty. Blood drawn for ordered labs. Flushed port with saline and Hepain 500 units IVP. Port de-accessed. Site covered with sterile 2x2 and secured with tape. Pt. tolerated without c/o. 1345: Pt d/c'd amb. to home.
--- NOTE | 2023-05-25 12:47 | PC.NURSE ---
1230: Pt. to [facility] amb. for weekly blood draw. Seated in recliner. Using sterile technique, #19 gauge Stovall needle used to access right ant. chest port. Flushes easily and able to aspirate blood easily. Blood obtained for labs. Port flushed with Heparin and saline. Port de-accessed. No bleeding from site. Pt. tolerated all without c/o. 1243: Pt. d/c'd amb. to home.
[2023-05-25 12:49] LABS: Basophils Percent Auto 0.5 % (0.2-2.0); Eosinophils Absolute Auto 0.1 10^3/uL (0.0-0.7); Hematocrit 33.8 % (36.0-48.0); Hemoglobin 10.7 g/dL (12.0-16.0); Immature Granulocytes Abs Auto 0.01 10^3/uL (0.00-0.03); Immature Granulocytes Pct Auto 0.2 % (0.0-0.5); Lymphocytes Percent Auto 17.5 % (20.5-60.0); Mean Corpuscular HGB Conc 31.7 g/dL (29.9-35.2); Mean Corpuscular Hemoglobin 31.6 pg (26.7-34.0); Mean Corpuscular Volume 99.7 fL (81.0-99.0); Mean Platelet Volume 9.1 fL (9.5-13.5); Monocytes Absolute Auto 0.4 10^3/uL (0.3-0.8); Monocytes Percent Auto 7.2 % (1.7-12.0); Neutrophils Absolute Auto 4.3 10^3/uL (1.4-6.5); Neutrophils Percent Auto 72.6 % (43.0-75.0); Platelet Count 244 10^3/uL (150-450); Red Blood Count 3.39 10^6/uL (4.20-5.40); Red Cell Distribution Width 13.6 % (11.0-15.0); White Blood Count 5.9 10^3/uL (4.0-11.0)
[2023-05-25 13:13] LABS: Alanine Aminotransferase 29 U/L (14-59); Albumin Level 3.6 g/dL (3.4-5.0); Alkaline Phosphatase 128 U/L (46-116); Anion Gap 12.1; Aspartate Amino Transferase 26 U/L (15-37); Bilirubin Total 0.5 mg/dL (0.2-1.0); Calcium 9.3 mg/dL (8.5-10.1); Carbon Dioxide 26.7 mmol/L (21.0-32.0); Chloride 102 mmol/L (98-107); Estimated GFR (African America 41 (>=60); Estimated GFR (Non-African Ame 34 (>=60); Globulin 3.7 g/dL; Glucose 94 mg/dL (74-106); Potassium 4.8 mmol/L (3.5-5.1); Sodium 136 mmol/L (136-145); Total Protein 7.3 g/dL (6.4-8.2)
== END 2023-05-25 23:59 | disposition home or self-care (01) ==
LOC: INF 07:27
PROVIDERS: PCP Family Medicine; Visit Provider Family Medicine
DX: E87.1 Hypo-osmolality and hyponatremia (principal); I10 Essential (primary) hypertension; D64.9 Anemia, unspecified; N28.9 Disorder of kidney and ureter, unspecified; M47.812 Spondylosis without myelopathy or radiculopathy, cervical region; M47.814 Spondylosis without myelopathy or radiculopathy, thoracic region; M41.84 Other forms of scoliosis, thoracic region
CPT/HCPCS: 36415; 36591; 72050; 72070; 80053; 83930; 85025; G0463

== ENCOUNTER 2023-05-25 11:30 | Outpatient (OUT) | payer MEDICARE, MEDICAID, SELFPAY ==
--- NOTE | 2023-05-25 12:17 | PM.CN ---
Consult Note: HPI Data of Consult Requesting Physician: Louann Jackson NP Primary Care Provider: Yuri Godinez MD Consult Narrative Reason for consult: f/u Narrative: Mabel Moser a pleasant 63 year old female presents for evaluation and management of chronic pain. Patient underwent left and right L4/5 L5/S1 thermal RFA with 100% pain relief in low back. Patient would like to dsicuss neck and upper back pain, today /, pain worse with activity and lifting. patient receives medications through PCP. cc:: CC: Louann Jackson NP Review of Systems ROS Status of ROS 10 or more systems reviewed and unremarkable except as noted in history and below Musculoskeletal Reports: back pain and neck pain PFSH [facility] Medical History (Updated 05/25/23 @ 12:19 by Louann Jackson NP) Depression ?F32.A - Depression, unspecified (ICD-10) Gastroenteritis ?K52.9 - Noninfective gastroenteritis and colitis, unspecified (ICD-10) Migraine without aura and without status migrainosus, not intractable ?G43.009 - Migraine without aura, not intractable, without status migrainosus (ICD-10) Chronic heart failure with preserved ejection fraction (HFpEF) ?I50.32 - Chronic diastolic (congestive) heart failure (ICD-10) Chest pain ?R07.9 - Chest pain, unspecified (ICD-10) Dyspnea ?R06.00 - Dyspnea, unspecified (ICD-10) Fluid overload ?E87.70 - Fluid overload, unspecified (ICD-10) Osteoarthritis ?M19.90 - Unspecified osteoarthritis, unspecified site (ICD-10) Anemia ?D64.9 - Anemia, unspecified (ICD-10) Anxiety ?F41.9 - Anxiety disorder, unspecified (ICD-10) Stroke ?I63.9 - Cerebral infarction, unspecified (ICD-10) Acid reflux ?K21.9 - Gastro-esophageal reflux disease without esophagitis (ICD-10) Hypothyroid ?E03.9 - Hypothyroidism, unspecified (ICD-10) Kidney failure ?N19 - Unspecified kidney failure (ICD-10) COPD (chronic obstructive pulmonary disease) ?J44.9 - Chronic obstructive pulmonary disease, unspecified (ICD-10) Asthma ?J45.909 - Unspecified asthma, uncomplicated (ICD-10) CHF (congestive heart failure) ?I50.9 - Heart failure, unspecified (ICD-10) Irregular heart beat ?I49.9 - Cardiac arrhythmia, unspecified (ICD-10) HTN (hypertension) ?I10 - Essential (primary) hypertension (ICD-10) Heart attack ?I21.9 - Acute myocardial infarction, unspecified (ICD-10) Lumbar spondylosis ?M47.816 - Spondylosis without myelopathy or radiculopathy, lumbar region (ICD-10) Surgical History H/O gastric bypass ?Z98.84 - Bariatric surgery status (ICD-10) H/O hysterectomy with oophorectomy History of appendectomy ?Z90.49 - Acquired absence of other specified parts of digestive tract (ICD-10) History of hernia repair ?Z98.890 - Other specified postprocedural states (ICD-10) ?Z87.19 - Personal history of other diseases of the digestive system (ICD-10) History of right knee joint replacement ?Z96.651 - Presence of right artificial knee joint (ICD-10) History of rotator cuff surgery ?Z98.890 - Other specified postprocedural states (ICD-10) Hx of cholecystectomy ?Z90.49 - Acquired absence of other specified parts of digestive tract (ICD-10) Family History Father Family history of CHF (congestive heart failure) Family history of diabetes mellitus Family history of hypertension Family history of myocardial infarction Family history of stroke Mother Family history of CHF (congestive heart failure) Family history of COPD (chronic obstructive pulmonary disease) Family history of diabetes mellitus Family history of hypertension Family history of myocardial infarction Family history of stroke Social History Within the past year, how often did you have a drink containing alcohol: never Within the past year, how often did you have six or more drinks on one occasion: never Score interpretation: A score less than 3 is consistent with normal alcohol consumption. 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 Highest level of school completed/degree received: some college, no degree Are you now , , , , never or living with a partner: In a typical week, how many times do you talk on the telephone with family, friends, or neighbors: 3 or more times per week How often do you get together with friends or relatives: twice per week How often do you attend sabianist or synagogue services: 4 or more times per year Do you belong to any clubs or organizations such as sabianist groups unions, [employer] or athletic groups, or school groups: no Total score: 3 Score interpretation: A score of greater than or equal to 2 indicates the lowest level of social isolation. Little interest or pleasure in doing things: not at all Feeling down, depressed, or hopeless: several days Feel stressed/tense/nervous/anxious/difficulty sleeping: to some extent Life stressors: recent of family or friend Do you think of yourself as: straight/heterosexual Gender Identity: female Meds Home Medications and Allergies Home Medications Medication Instructions Recorded Confirmed Type alprazolam 0.5 mg tablet 0.5 mg PO BID 12/08/22 04/11/23 History amitriptyline 150 mg tablet 150 mg PO BEDTIME 12/08/22 04/11/23 History calcium acetate(phosphat bind) 667 667 mg PO BID 12/08/22 04/11/23 History mg capsule fentanyl 100 mcg/hr transdermal 1 patch transdermal Q72H 12/08/22 04/11/23 History patch levothyroxine 100 mcg tablet 100 mcg PO DAILY 12/08/22 04/11/23 History linaclotide 290 mcg capsule 290 mcg PO DAILY 12/08/22 04/11/23 History (Linzess) liothyronine 25 mcg tablet 25 mcg PO DAILY 12/08/22 04/11/23 History metoclopramide HCl 10 mg tablet 10 mg PO QID PRN nausea and 12/08/22 04/11/23 History vomiting metoprolol tartrate 50 mg tablet 50 mg PO BID PRN hypertension 12/08/22 04/11/23 History (Lopressor) ondansetron HCl 4 mg tablet 4 mg PO TID-QID PRN nausea and 12/08/22 04/11/23 History vomiting oxycodone-acetaminophen 5 mg-325 2 tab PO Q6H 12/08/22 04/11/23 History mg tablet pantoprazole 40 mg tablet,delayed 40 mg PO BID 12/08/22 04/11/23 History release primidone 50 mg tablet 100 mg PO BEDTIME 12/08/22 04/11/23 History tizanidine 4 mg tablet (Zanaflex) 4 mg PO Q6H 12/08/22 04/11/23 History aripiprazole 2 mg tablet (Abilify) 2 mg PO DAILY 01/23/23 04/11/23 History bumetanide 1 mg tablet 4 mg PO QDAY 01/23/23 04/11/23 History loratadine 10 mg tablet (Claritin) 10 mg PO DAILY 01/23/23 04/11/23 History sacubitril 97 mg-valsartan 103 mg 1 tab PO BID 01/23/23 04/11/23 History tablet (Entresto) pramipexole 1 mg tablet (Mirapex) 1 mg PO .evening 01/24/23 04/11/23 History spironolactone 50 mg tablet 50 mg PO DAILY PRN swelling 01/24/23 04/11/23 History (Aldactone) albuterol sulfate 2.5 mg/3 mL 2.5 mg inhalation Q4H PRN 02/03/23 04/11/23 History (0.083 %) solution for nebulization bronchospasm emxelarlil-gcvttrdirrmwi-jkcoiocp 1 cap PO Q6H PRN pain 02/03/23 04/11/23 History 50 mg-325 mg-40 mg capsule butorphanol 10 mg/mL nasal spray 1 spray intranasal BID PRN pain 02/03/23 04/11/23 History desvenlafaxine succinate 50 mg 50 mg PO Q24H 02/03/23 04/11/23 History tablet,extended release 24 hr escitalopram oxalate 20 mg tablet 20 mg PO DAILY 02/03/23 04/11/23 History fluticasone furoate 100 1 inh inhalation Q24H 02/03/23 04/11/23 History mcg-vilanterol 25 mcg/dose inhalation powder (Breo Ellipta) cefuroxime axetil 500 mg tablet 500 mg PO BID 7 days #14 tabs 02/08/23 04/11/23 Rx Allergies Allergy/AdvReac Type Severity Reaction Status Date / Time povidone-iodine Allergy Intermediate Verified 04/11/23 09:44 [From Betadine] amoxicillin [From Augmentin] Allergy Mild Vomiting Verified 04/11/23 09:44 clavulanic acid Allergy Mild Vomiting Verified 04/11/23 09:44 [From Augmentin] Sulfa (Sulfonamide Allergy Mild Vomiting Verified 04/11/23 09:44 Antibiotics) ciprofloxacin [From Cipro] Allergy Unknown Verified 04/11/23 09:44 Exam Constitutional Documenting provider has reviewed patient's vital signs: yes Common normals: no apparent distress, oriented x3, healthy appearing, alert and well nourished General appearance: cooperative HENMT Common normals: normocephalic, hearing grossly normal bilaterally and moist oral mucous membranes Head and scalp: normocephalic Eye Common normals: PERRL Pupil: PERRL Neck & C-Spine Common normals: full ROM General: normal visual inspection Cervical spine: pain with cervical ROM Other: facet loading positive bilaterally no radiculopathy strength 5/5 in BUE Chest Common normals: inspection of chest normal Respiratory Common normals: normal respiratory effort, no retractions and no use of accessory muscles Back & Pelvis Thoracic spine/upper back: pain with ROM Back image (female): 1. Neuro Common normals: oriented x3, CN's II-XII intact bilaterally, moves all extremities, no focal motor deficits, no sensory deficits noted and deep tendon reflexes 2+ bilaterally Sensorium/orientation: alert Motor exam: strength 5/5 throughout and no movement abnormalities noted Psych Common normals: mental status grossly normal, thought process normal, cooperative, affect normal, speech normal and activity/motor behavior normal Speech: normal speech Thought process: normal thought process Assessment and Plan Assessment and Plan (1) Cervical spondylosis: Assessment and Plan: The patient has had over 3 months of moderate to severe neck pain with functional impairment and inadequate response to conservative care including NSAIDS (unless there are contraindication such as concurrent blood thinners), multiple oral or topical pain medications, and home exercise program/physical therapy.? Patient has completed >6 weeks of guided home exercise program and/or formal physical therapy program without relief of their symptoms.? I have reviewed the imaging of the cervical spine and no red flags were identified.? The imaging reveals radiographic findings consistent with cervical spondylosis We discussed the risks and benefits of the procedure with the patient, and we are NOT planning on using sedation as outlined in the guidelines from Medicare unless there is a documented reason that sedation would be strongly recommended.?? (2) Lumbar spondylosis: (3) Thoracic spondylosis: (4) Muscle spasm: Plan continue current medications through PCP, tolerating well without side effects xrays of cervical and thoracic spine reviewed bilateral C6-7 C7-T1 MBB X2 working towards thermal RFA f/u 1 week after each injection
== END 2023-05-25 11:31 | disposition home or self-care (01) ==
LOC: PM 11:31
PROVIDERS: PCP Family Medicine; Visit Provider Nurse Practitioner
DX: I10 Essential (primary) hypertension (principal); E87.1 Hypo-osmolality and hyponatremia; D64.9 Anemia, unspecified; N28.9 Disorder of kidney and ureter, unspecified
CPT/HCPCS: 36591; 80053; 83930; 85025; G0463

== ENCOUNTER 2023-05-25 12:52 | Outpatient (OUT) | payer MEDICARE, MEDICAID, SELFPAY ==
--- NOTE | 2023-05-25 13:45 | XR_ITS ---
The [address] [address] Patient Name: JOSE CLEMENTS MRN: [id number] date: 1960 Sex: F Assigned Patient Location: [facility] Current Patient Location: [facility] Accession/Order Number: [id number] Exam Date: 05/25/2023 13:35 Report Date: 05/27/2023 05:25 At the request of: BRIAN YOUNG Procedure: XR thoracic spine 2V EXAMINATION: XR thoracic spine 2V HISTORY: Thoracic Spondylosis COMPARISON: XR thoracic spine 03/23/2023 FINDINGS: BONES: Moderate right convex curvature thoracic spine. No appreciable fracture or spondylolisthesis. Multilevel degenerative endplate changes. Mechanical fusion and posterior decompression of the visible upper lumbar spine. DISC SPACES: Multilevel mild narrowing of mid thoracic spine. PARASPINOUS: Right Port-A-Cath with tip at cavoatrial junction. OTHER: Negative. XR/XR thoracic spine 2V IMPRESSION: 1. No appreciable acute abnormality. 2. Stable moderate dextroscoliosis and degenerative changes. Electronically authenticated by: BUNNY ZEPEDA Date: 05/27/2023 05:25
--- NOTE | 2023-05-25 13:45 | XR_ITS ---
The [address] [address] Patient Name: JOSE CLEMENTS MRN: [id number] date: 1960 Sex: F Assigned Patient Location: [facility] Current Patient Location: [facility] Accession/Order Number: [id number] Exam Date: 05/25/2023 13:35 Report Date: 05/27/2023 05:36 At the request of: BRIAN YOUNG Procedure: XR cervical spine 5V EXAMINATION: XR cervical spine 5V HISTORY: Cervical Spondylosis ; acute cervical and thoracic spine pain which increases when turning head COMPARISON: XR C-spine 12/14/2020 FINDINGS: BONES: Minimal grade 1 anterior listhesis of C5 on C6. Multilevel moderate degenerative facet arthropathy and uncovertebral joint spurring resulting in mild bone encroachment on the neural foramen at multiple levels and moderate-marked encroachment on the right C6-C7 and C7-T1. No fracture or bone lesion. DISC SPACES: Moderate narrowing C6-C7. PARASPINOUS: Negative. No paraspinous abnormality is seen. OTHER: Negative. XR/XR cervical spine 5V IMPRESSION: 1. No appreciable acute abnormality. 2. Limited evaluation of the C2 dens with fracture at its base not able to be excluded on today's images due to positioning and metallic artifacts. Additional imaging of the C1-C2 level should be performed if clinically indicated. 3. Multilevel degenerative changes; grossly stable. Electronically authenticated by: BUNNY ZEPEDA Date: 05/27/2023 05:36
== END 2023-05-25 12:53 | disposition home or self-care (01) ==
LOC: RAD 12:57
PROVIDERS: PCP Family Medicine; Visit Provider Nurse Practitioner
DX: M47.812 Spondylosis without myelopathy or radiculopathy, cervical region (principal); M47.814 Spondylosis without myelopathy or radiculopathy, thoracic region; M41.84 Other forms of scoliosis, thoracic region
CPT/HCPCS: 72050; 72070

== ENCOUNTER 2023-06-09 14:21 | Outpatient (OUT) | payer MEDICARE, MEDICAID, SELFPAY ==
--- NOTE | 2023-06-09 14:24 | XR_ITS ---
The [address] [address] Patient Name: JOSE CLEMENTS MRN: [id number] date: 1960 Sex: F Assigned Patient Location: [facility] Current Patient Location: Accession/Order Number: [id number] Exam Date: 06/09/2023 14:30 Report Date: 06/12/2023 08:17 At the request of: ANGLE SANTANA Procedure: XR hip RT 2V w/ pelvis EXAM: AP of the pelvis and right hip HISTORY: . Pain In Right Hip M25.551 . COMPARISON: None. TECHNIQUE: 3 views FINDINGS: Bony pelvis is intact with no fracture or bony destructive process. No fracture or dislocation of the right hip. Vena cava filter is noted at the L5 level. Skin ting are noted. XR/XR hip RT 2V w/ pelvis IMPRESSION: 1. No acute abnormality of the pelvis. 2. Negative right hip. Electronically authenticated by: CAROLS PANDA Date: 06/12/2023 08:17
== END 2023-06-09 14:22 | disposition home or self-care (01) ==
LOC: RAD 14:21
PROVIDERS: PCP Family Medicine; Visit Provider Family Medicine
DX: M25.551 Pain in right hip (principal)
CPT/HCPCS: 73502

== ENCOUNTER 2023-06-15 08:02 | Day surgery (SDC) | payer MEDICARE, MEDICAID, SELFPAY ==
[2023-06-15 08:29] VITALS: BP 113/78; PULSE 74; RESP 14; TEMP 36.2; O2SAT 94
[2023-06-15 09:05] VITALS: BP 107/76; BP 111/72; PULSE 82; RESP 18; O2SAT 95; O2SAT 98
[2023-06-15] MEDS: BUPIVACAINE HCL 0.25% PF 25 MG/10 ML VIAL 4 ML INJ (09:09)
--- NOTE | 2023-06-15 09:17 | W.PM.PROCNOT ---
Date of procedure: 06/15/23 Pre-op diagnosis: cervical spondylosis Post-op diagnosis: same as pre-op Procedure: Cervical 4-5, 5-6 medial branch block Under fluoroscopic guidance Solution injected: 2millilitersMarcaine 0.25% Anesthesia :none Immediate complications none Time out process compliant After informed consent obtained from the patient placed in the Prone proposition . area was prepped and draped in a sterile fashion using Cloraprep .25 gauge spinal needle inserted over each of the above mentioned target areas . [place] were directed towards the target under fluoroscopic guidance . after encountering each of the targets , no indication of intravascular intraneuronal or intrathecal needle tip placement. Then 0 .5 to 1 Milliliter was injected at each level. [place] removed postoperatively. patient transferred to recovery in stable condition to be discharged home after meeting criteria Anesthesia: Local Surgeon: Terry David Condition: stable
--- OUTSIDE RECORDS SUMMARY | 2023-06-15 10:35 | XMS_ITS | CCD ---
Author Name Unknown Address [address] [place] [address] Organization [facility] Care Team Providers Care Undercar Specialist Name Role Phone NIRMAL LEWIS Admitting Unavailable NIRMAL LEWIS Attending Unavailable ANGLE SANTANA Primary Care Unavailable NIRMAL LEWIS Admitting Unavailable NIRMAL LEWIS Attending Unavailable ANGLE SANTANA Primary Care Unavailable [place] Unavailable CARLOS REZA Admitting Unavailable CARLOS REZA Attending Unavailable ANGLE SANTANA Primary Care Unavailable ANGLE SANTANA Referring Unavailable Robert Johnston Admitting Unavailable Robert Johnston Attending Unavailable ANGLE SANTANA Referring Unavailable ANGLE SANTANA Primary Care Unavailable TadRaeann blair Unavailable Sue Leiva Unavailable MD Angle Santana Primary Care Provider [phone] WALLY Helm Emergency Provider [phone] Angle Santana Primary Care Unavailable Favian Helm Attending Unavailable Favian Helm Admitting Unavailable ROBERT JOHNSTON Attending Unavailable ROBERT JOHNSTON Admitting Unavailable ESTHER Hutchison, DR BARBOUR Primary Care Unavailable DR BUNNY ZEPEDA Consulting Unavailable ROBERT JOHNSTON Consulting Unavailable ESTHER ., DR BARBOUR Admitting Unavailable HOY ., DR BARBOUR Primary Care Unavailable HOY ., DR BARBOUR Consulting Unavailable HOY ., DR BARBOUR Attending Unavailable HOY ., DR BARBOUR Admitting Unavailable HOY ., DR BARBOUR Primary Care Unavailable HOY ., DR BARBOUR Attending Unavailable HOY ., DR BARBOUR Consulting Unavailable HOY ., DR BARBOUR Admitting Unavailable HOY ., DR BARBOUR Primary Care Unavailable HOY ., DR BARBOUR Attending Unavailable HOY ., DR BARBOUR Consulting Unavailable HOY ., DR BARBOUR Consulting Unavailable HOY ., DR BARBOUR Primary Care Unavailable HOY ., DR BARBOUR Attending Unavailable HOY ., DR BARBOUR Admitting Unavailable HOY ., DR BARBOUR Primary Care Unavailable TERESSA GREGORY Admitting Unavailable TERESSA GREGORY Attending Unavailable JC ., CAR BECK Consulting UnavailBUNNY Garnett Consulting Unavailable RAGINI HUDSON Consulting Unavailable HOY ., DR BARBOUR Consulting Unavailable HOY ., DR BARBOUR Primary Care Unavailable HOY ., DR BARBOUR Admitting Unavailable HOY ., DR BARBOUR Attending Unavailable ZIEBER, DR BUNNY Trujillo Consulting Unavailable SEVENEDGARDO Consulting Unavailable VITALENUNO ROGERS Consulting Unavailable HOY ., DR BARBOUR Admitting Unavailable HOY ., DR BARBOUR Primary Care Unavailable HOY ., DR BARBOUR Consulting Unavailable HOY ., DR BARBOUR Attending Unavailable HOY ., DR BARBOUR Admitting Unavailable HOY ., DR BARBOUR Primary Care Unavailable HOY ., DR BARBOUR Consulting Unavailable HOY ., DR BARBOUR Attending Unavailable HOY ., DR BARBOUR Admitting Unavailable HOY ., DR BARBOUR Primary Care Unavailable HOY ., DR BARBOUR Consulting Unavailable HOY ., DR BARBOUR Attending Unavailable HOY ., DR BARBOUR Admitting Unavailable HOY ., DR BARBOUR Primary Care Unavailable HOY ., DR BARBOUR Consulting Unavailable HOY ., DR BARBOUR Attending Unavailable HOY ., DR BARBOUR Admolena Unavailable HOY ., DR BARBOUR Primary Care Unavailable HOY ., DR BARBOUR Consulting Unavailable HOY ., DR BARBOUR Attending Unavailable DIAB ., NIKKIE Attending Unavailable DIAB ., NIKKIE Admitting Unavailable TANK ., LANA Consulting Unavailable HOY ., DR BARBOUR Primary Care Unavailable MIGEL APARICIO Consulting Unavailable STRAWSER, JODY Consulting Unavailable ALEJO, DANICA Consulting Unavailable KLIPPER, CARLOS Consulting Unavailable DIAB ., NIKKIE Consulting Unavailable HOY ., DR BARBOUR Primary Care Unavailable MARKER ., DR JURADO Attending Unavailable MARKER ., DR JURADO Admitting Unavailable MARKER ., DR JURADO Consulting Unavailable JITENDRA LANGFORD Consulting Unavailable JDUAH CHARLES Consulting Unavailable ALDO MOORE Consulting Unavailable HOY ., DR BARBOUR Admolena Unavailable HOY ., DR BARBOUR Primary Care Unavailable HOY ., DR BARBOUR Consulting Unavailable HOY ., DR BARBOUR Attending Unavailable PAY ., DR HUNTER Consulting Unavailable MELVIN, JUDAH Covington Consulting Unavailable Barnes, David Consulting Unavailable HOY ., DR BARBOUR Admitting Unavailable HOY ., DR BARBOUR Primary Care Unavailable HOY ., DR BARBOUR Consulting Unavailable HOY ., DR BARBOUR Attending Unavailable WEST, DR CARLOS Castillo Consulting Unavailable LAKSHMIPATHY ., NARENDRANATH Attending Yumiko vailable LAKSHMIPATHY ., NARENDRANATH Admitting Yumiko vailable HOY ., DR BARBOUR Primary Care Unavailable ZIEBER, DR BUNNY Trujillo Consulting Unavailable HALKER ., SANTOS Consulting Unavailable BAKHOUS, AZIZ Attending Unavailable BAKHOUS, AZIZ Admitting Unavailable BAKKENDALLSDONNIEIZ Consulting Unavailable HOY ., DR BARBOUR Primary Care Unavailable HOY ., DR BARBOUR Admitting Unavailable HOY ., DR BARBOUR Attending Unavailable HOY ., DR BARBOUR Consulting Unavailable HOY ., DR BARBOUR Primary Care Unavailable CARLOS THOMPSON Consulting Unavailable HOY ., DR BARBOUR Consulting Unavailable HOY ., DR BARBOUR Admitting Unavailable HOY ., DR BARBOUR Attending Unavailable HOY ., DR BARBOUR Primary Care Unavailable ZIEBER, DR BUNNY Trujillo Consulting Unavailable HOY ., DR BARBOUR Primary Care Unavailable MISC, DR HERNÁNDEZ Admitting Unavailable MISC, DR HERNÁNDEZ Attending Unavailable HOY ., DR BARBOUR Admitting Unavailable HOY ., DR BARBOUR Primary Care Unavailable HOY ., DR BARBOUR Consulting Unavailable HOY ., DR BARBOUR Attending Unavailable LISACHELA Attending Unavailable ZANDRA GONZALEZ Admitting Unavailable HOY ., DR BARBOUR Primary Care Unavailable ZANDRA GONZALEZ Consulting Unavailable HOY ., DR BARBOUR Consulting Unavailable HOY ., DR BARBOUR Primary Care Unavailable HOY ., DR BARBOUR Admolena Unavailable HOY ., DR BARBOUR Attending Unavailable ZIEBER, DR BUNNY Trujillo Consulting Unavailable HOY ., DR BARBOUR Primary Care Unavailable HARP ., DR ANIKA Blair Attending Unavailable HARP ., DR ANIKA Blair Admitting Unavailable DEJESUS ., NNAMDI Consulting Unavailable LAKSHMIPATHY ., NARENDRANATH Consulting Yumiko vailable LAKSHMIPATHY ., NARENDRANATH Attending Yumiko vailable LAKSHMIPATHY ., SURINDERATH Admitting Yumiko vailable HOY ., DR BARBOUR Primary Care Unavailable HOY ., DR BARBOUR Primary Care Unavailable HARP ., DR ANIKA Blair Admitting Unavailable HARP ., DR ANIKA Blair Consulting Unavailable HARP ., DR ANIKA Blair Attending Unavailable DEJESUS ., NNAMDI Consulting Unavailable HOY ., DR BARBOUR Primary Care Unavailable HARP ., DR ANIKA Blair Admitting Unavailable HARP ., DR ANIKA Blair Consulting Unavailable HARP ., DR ANIKA Blair Attending Unavailable AGUBOSIBRIAN Covington Consulting Unavailable HOY ., DR BARBOUR Primary Care Unavailable HARP ., DR ANIKA Blair Attending Unavailable HARP ., DR ANIKA Blair Admitting Unavailable HARP ., DR ANIKA Blair Consulting Unavailable LAKSHMIPATHY ., NARENDRANATH Attending Yumiko vailable LAKSHMIPATHY ., NARENDRANATH Admitting Yumiko vailable HALKER ., SANTOS Consulting Unavailable HOY ., DR BARBOUR Primary Care Unavailable LAKSHMIPATHY ., NARENDRANATH Attending Yumiko vailable LAKSHMIPATHY ., NARENDRANATH Admitting Yumiko vailable LAKSHMIPATHY ., NARENDANDRZEJATH Consulting Yumiko vailable HOY ., DR BARBOUR Primary Care Unavailable HOY ., DR BARBOUR Primary Care Unavailable HARP ., DR ANIKA Blair Attending Unavailable HARP ., DR ANIKA Blair Admitting Unavailable HARP ., DR ANIKA Blair Consulting Unavailable LAKSHMIPATHY ., NARENDRANATH Attending Yumiko vailable LAKSHMIPATHY ., NARENDRANATH Admitting Yumiko vailable LAKSHMIPATHY ., NARENDANDRZEJATH Consulting Yumiko vailable HOY ., DR BARBOUR Primary Care Unavailable DEJESUS ., NNAMDI Consulting Unavailable HOY ., DR BARBOUR Primary Care Unavailable HARP ., DR ANIKA Blair Admitting Unavailable HARP ., DR ANIKA Blair Attending Unavailable HOY ., DR BARBOUR Admitting Unavailable HOY ., DR BARBOUR Primary Care Unavailable HOY ., DR BARBOUR Consulting Unavailable HOY ., DR BARBOUR Attending Unavailable MAICOL ., FELECIA Attending Unavailable TAMMONICAN ., FELECIA Admitting Unavailable JASPREET II, LIZETTE Consulting Unavailable HOY ., DR BARBOUR Primary Care Unavailable TAMLYN ., FELECIA Consulting Unavailable JOSE VILLANUEVA Consulting Unavailable PEREZ CABRAL Consulting Unavailable HOY ., DR BARBOUR Admitting Unavailable HOY ., DR BARBOUR Primary Care Unavailable HOY ., DR BARBOUR Attending Unavailable HOY ., DR BARBOUR Consulting Unavailable HALKER ., SANTOS Attending Unavailable HALKER ., SANTOS Admitting Unavailable HOY ., DR BARBOUR Primary Care Unavailable TAMLYN ., FELECIA Attending Unavailable TAMLYN ., FELECIA Admitting Unavailable HOY ., DR BARBOUR Primary Care Unavailable HOY ., DR BARBOUR Admitting Unavailable HOY ., DR BARBOUR Primary Care Unavailable HOY ., DR BARBOUR Attending Unavailable HOY ., DR BARBOUR Consulting Unavailable VITALE APRIL Consulting Unavailable HOY ., DR BARBOUR Consulting Unavailable HOY ., DR BARBOUR Primary Care Unavailable HOY ., DR BARBOUR Admitting Unavailable HOY ., DR BARBOUR Attending Unavailable HOY ., DR BARBOUR Consulting Unavailable HOY ., DR BARBOUR Primary Care Unavailable HOY ., DR BARBOUR Admitting Unavailable HOY ., DR BARBOUR Attending Unavailable HOY ., DR BARBOUR Admitting Unavailable HOY ., DR BARBOUR Primary Care Unavailable HOY ., DR BARBOUR Consulting Unavailable HOY ., DR BARBOUR Attending Unavailable ZIEBER, DR BUNNY Trujillo Consulting Unavailable HOY ., DR BARBOUR Admolena Unavailable HOY ., DR BARBOUR Primary Care Unavailable HOY ., DR BARBOUR Attending Unavailable HOY ., DR BARBOUR Consulting Unavailable MICHELE, DR MIGUEL Calderon Consulting Unavailabl e JC .CAR Consulting UnavailSHAIKH Deepak Figueroa Consulting Unavailable HOY ., DR BARBOUR Primary Care Unavailable HARP ., DR ANIKA Blair Admitting Unavailable HARP ., DR ANIKA Blair Consulting Unavailable HARP ., DR ANIKA Blair Attending Unavailable SHAMA ALEXANDRA Consulting Unavailable BUNNY MCMILLAN Consulting Unavailable HOY ., DR BARBOUR Admitting Unavailable HOY ., DR BARBOUR Primary Care Unavailable HOY ., DR BARBOUR Consulting Unavailable HOY ., DR BARBOUR Attending Unavailable SHERLY ROSADO Referring Unavailable DUNCAN DENNIS Attending Unavailable SHERLY ROSADO Referring Unavailable JULIO CÉSARUKABENJIE HUGHES Attending Unavailable RHIANNON BERNARD Attending Unavailable MOUKABENJIE HUGHES Admitting Unavailable MOUKABENJIE HUGHES Attending Unavailable ZANDRA GONZALEZ Attending Unavailable RHIANNON BERNARD Attending Unavailable MOUKABENJIE HUGHES Attending Unavailable SHERLY ROSADO Attending Unavailable Allergies Allergy Classification Reported Allergen(s) Allergy Type Date of Onset Reaction(s) Facility (9 sources) Amoxicillin Drug Allergy 10-29-19 23 Unknown, Diarrhea [facility] (4 sources) Amoxicillin / Clavulanate Drug Allergy Unknown [facility] Other (10 sources) Povidone-Iodine; Translations: [POVIDONE-IODINE] Drug Allergy 10-11-19 23 Unknown, Rash [facility] (8 sources) Sulfamethoxazole / Trimethoprim Drug Allergy Unknown [facility] Other (1 source) sulfaSALAzine Drug Allergy Unknown [facility] Other (7 sources) Amoxicillin / Clavulanate Drug Allergy 11-26-19 13 Unknown [facility] (1 source) Bumetanide Drug Allergy 03-22-20 16 [facility] (1 source) Cephalexin Drug Allergy 01-15-20 14 [facility] (2 sources) gabapentin; Translations: [GABAPENTIN] Drug Allergy 08-19-19 22 [facility] (3 sources) Povidone-Iodine Drug Allergy 11-26-19 13 [facility] (1 source) pregabalin; Translations: [LYRICA] Drug Allergy 08-19-19 22 [facility] (5 sources) Sulfonamides (Antibiotic); Translations: [SULFA (SULFONAMIDE ANTIBIOTICS)] Drug allergy (disorder) 11-26-19 13 Rash [facility] (1 source) Sulfonamide Drug allergy Unknown [facility] Other (6 sources) Substance with sulfonamide structure and antibacterial mechanism of action (substance) Drug allergy Unknown [facility] Other (2 sources) Clavulanate; Translations: [clavulanic acid] Drug Allergy 10-29-19 23 Diarrhea [facility] (1 source) Amoxicillin Drug Allergy 10-29-19 23 [facility] (1 source) Povidone-Iodine Drug Allergy 10-29-19 23 [facility] (1 source) Sulfonamides (Antibiotic) Drug allergy (disorder) 10-29-19 [facility] (1 source) Ciprofloxacin Drug Allergy 05-26-20 [facility] (1 source) Cephalexin; Translations: [CEPHALEXIN] Drug Allergy 06-13-20 14 [facility] (1 source) Ciprofloxacin; Translations: [CIPROFLOXACIN] Drug Allergy 10-11-19 23 [facility] (1 source) Iodine; Translations: [IODINE] Drug Allergy 11-28-19 [facility] (1 source) pregabalin; Translations: [PREGABALIN] Drug Allergy 10-11-19 [facility] (1 source) Sulfamethoxazole / Trimethoprim; Translations: [SULFAMETHOXAZOLE-T RIMETHOPRIM] Drug Allergy 11-28-19 [facility] (1 source) AMOXICILLIN-POT CLAVULANATE; Translations: [AMOXICILLIN-POT CLAVULANATE] Propensity to adverse reactions to drug (disorder) 06-13-20 14 [facility] Medications Current Medications Medication Drug Class(es) Dates Sig (Normalized) Sig (Original) acetaminophen 325 mg / butalbital 50 mg / caffeine 40 mg oral capsule (1 source) Barbiturate, Central Nervous System Stimulant, Methylxanthine Start: 10-28-2022 Butalbital-Aceta minophen-Caff Active 1 CAP PO As Directed October 28, 2022 12:00am acetaminophen 325 mg / oxyCODONE hydrochloride 5 mg oral tablet (9 sources) Opioid Agonist Start: 08-31-2018 take 2 tablets by mouth every four to six hours Oxycodone-Acetam inophen (Percocet) 5-325 mg Tablet Active 2 TAB PO EVERY 4-6 HOURS August 31, 2018 1:00am take 2 tablets by mo uth every four hours as needed oxyCODONE-Acetaminophen 5-325 MG 2 table t as needed Orally every 4 hrs PRN Active [id number] 200 actuat albuterol 0.09 mg/actuat metered dose inhaler (1 source) beta2-Adrenergic Agonist Start: 10-28-2022 take 1 puff(s) by inhalation every six hours Albuterol Sulfate Active 1 PUFF INHALATION Q6H October 28, 2022 12:00am albuterol 0.833 mg/ml / ipratropium bromide 0.167 mg/ml inhalation solution (1 source) Anticholinergic, beta2-Adrenergic Agonist Start: 10-28-2022 take 1 mL by inhalation every six hours Ipratropium-Alb uterol Active 3 ML INHALATION Q6H October 28, 2022 12:00am ALPRAZolam 0.25 mg oral tablet (9 sources) Benzodiazepine Start: 08-31-2018 take 2 tablets by mouth twice daily Alprazolam (Xanax) 0.25 mg Tablet Active 0.5 MG PO Twice daily August 31, 2018 1:00am take 1 tablet by joseph th twice daily as needed ALPRAZolam 0.25 MG 1 tablet Orally Twice a day NEEDED Active take 1 tablet by joseph th three times daily as needed ALPRAZolam 0.25 MG 1 tablet Orally THREE TIMES A DAY PRN Active take 1 tablet by joseph th three times daily as needed ALPRAZolam 0.5 MG 1 tablet Orally THREE TIMES A DAY PRN Active amitriptyline hydrochloride 150 mg oral tablet (10 sources) Tricyclic Antidepressant Start: 10-28-2022 take 150 mg by mouth once daily Amitriptyline Active 150 MG PO Daily October 28, 2022 12:00am Start: 08-31-2018 End: 09-04-2018 take 200 mg by mouth once daily Amitriptyline Discontinued 200 MG PO Daily August 31, 2018 1:00am September 04, 2018 7:59am ARIPiprazole 2 mg oral tablet (9 sources) Atypical Antipsychotic Start: 10-28-2022 take 2 mg by mouth once daily Aripiprazole Active 2 MG PO Daily October 28, 2022 12:00am B Complex (Folic Acid) - (8 sources) B Complex (Folic Acid) - as directed Orally ONCE A DAY Active bumetanide 1 mg oral tablet (10 sources) Loop Diuretic Start: 10-28-2022 take 1 mg by mouth three times daily Bumetanide Active 1 MG PO Three times daily October 28, 2022 12:00am Start: 08-31-2018 End: 10-28-2022 take 2 mg by mouth once daily Bumetanide Discontinued 2 MG PO Daily August 31, 2018 1:00am October 28, 2022 7:46pm take 1 tablet by joseph th every twenty-four hours Bumetanide 1 MG 1 tablet Orally Once a day Active 24 hr buPROPion hydrochloride 300 mg extended release oral tablet (1 source) Aminoketone Start: 08-31-2018 take 1 tablet by mouth once daily in the morning Bupropion Hcl (Wellbutrin Xl) 300 mg Tablet Extended Release 24 Hr Active 300 MG PO Every morning August 31, 2018 1:00am butorphanol tartrate 1 mg/actuat metered dose nasal spray (1 source) Opioid Agonist/Antagonist Start: 10-28-2022 Butorphanol Active 1 SPRAY INTRANASAL Daily October 28, 2022 12:00am calcium acetate 667 mg oral capsule (4 sources) Start: 10-28-2022 take 667 mg by mouth twice daily Calcium Acetate(Phosphat Bind) Active 667 MG PO Twice daily October 28, 2022 12:00am take 2 tablets by mouth every ei ght hours Calcium Acetate (Phos Binder) 667 MG 2 tablets with meals Orally Three times a day Active take 2 capsules by m outh every twelve hours Calcium Acetate (Phos Binder) 667 MG 2 capsules with meals Orally TWICE A DAY Active calcium carbonate 500 mg chewable tablet (8 sources) take 2 tablets by mouth twice daily as needed Calcium Carbonate Antacid 500 MG 2 tablets Orally Twice a day PRN Active cetirizine hydrochloride 10 mg oral tablet (1 source) Histamine-1 Receptor Antagonist take 1 tablet by mouth every twenty-four hours Cetirizine HCl 10 MG 1 tablet Orally Once a day Active Cholecalciferol (8 sources) Vitamin D take 1 capsule by mouth once daily Cholecalciferol 25 MCG (1000 UT) 1 capsule Orally Once a day Active take 1 capsule by mouth once hima ly Cholecalciferol 125 MCG (5000 UT) 1 capsule Orally Once a day Active 24 hr desvenlafaxine succinate 50 mg extended release oral tablet (1 source) Serotonin and Norepinephrine Reuptake Inhibitor Start: 10-28-2022 take 50 mg by mouth once daily Desvenlafaxine Succinate Active 50 MG PO Daily October 28, 2022 12:00am dicyclomine hydrochloride 20 mg oral tablet (2 sources) Anticholinergic Start: 10-28-2022 Dicyclomine Active 20 MG PO As Directed October 28, 2022 12:00am take 1 tablet by joseph four times daily as needed Dicyclomine HCl 20 MG 1 tablet Orally Fo ur times a day NEEDED Active docusate sodium 250 mg oral capsule (1 source) take 1 capsule by mouth once daily as needed Docusate Sodium 250 MG 1 capsule as needed Orally Once a day NEEDED Active DULoxetine 60 mg delayed release oral capsule (9 sources) Serotonin and Norepinephrine Reuptake Inhibitor Start: take 120 mg by mouth once daily Duloxetine Active 120 MG PO Daily October 28, 2022 12:00am take 1 capsule by cox branson every twelve hours DULoxetine HCl 60 MG 1 capsule Orally Tw ice a day Active escitalopram 20 mg oral tablet (1 source) Serotonin Reuptake Inhibitor Start: 10-28-2022 take 20 mg by mouth once daily Escitalopram Oxalate Active 20 MG PO Daily October 28, 2022 12:00am 72 hr fentaNYL 0.1 mg/hr transdermal system (11 sources) Opioid Agonist Start: 10-28-2022 Fentanyl Activ e 1 PATCH TRANSDERML Q72H October 28, 2022 12:00am Start: 08-31-2018 End: 10-28-2022 Fentanyl Discontinued 1 PATC H TRANSDERML Q72H August 31, 2018 1:00am October 28, 2022 7:54pm fentaNYL 100 MCG /HR 1 patch to skin Transdermal EVERY 72 HOURS Active fentaNYL 50 MCG/ HR 1 patch to skin Transdermal CHANGE EVERY 72 HOURS Active ferrous sulfate 325 mg oral tablet (1 source) Start: 08-31-2018 take 325 mg by mouth once daily Ferrous Sulfate Active 325 MG PO Daily August 31, 2018 1:00am fludrocortisone acetate 0.1 mg oral tablet (6 sources) take 2 tablets by mouth in the morning, then take 1 tablet by mouth twice daily in the evening Fludrocortisone Acetate 0.1 MG 2 tablets in am, 1 tablet in pm Orally twice a day Active 30 actuat fluticasone furoate 0.1 mg/actuat / vilanterol 0.025 mg/actuat dry powder inhaler (2 sources) Corticosteroi d, beta2-Adrener gic Agonist Start: 08-31-2018 Fluticasone Furoate-Vilanterol (Breo Ellipta) 100-25 mcg/dose Blister With Device Active 1 INH INHALATION Daily August 31, 2018 1:00am take 1 puff(s) by inhalation onc e daily BREO ELLIPTA 100 mcg/25 mcg 1 puff Inhalation daily Active hydrALAZINE hydrochloride 50 mg oral tablet (12 sources) Arteriolar Vasodilator Start: 10-28-2022 take 50 mg by mouth three times daily Hydralazine Active 50 MG PO Three times daily October 28, 2022 12:00am hydroCHLOROthiazide 50 mg / triamterene 75 mg oral tablet (6 sources) Potassium-sparin g Diuretic, Thiazide Diuretic take 1 tablet by mouth every twenty-four hours Triamterene-HCTZ 75-50 MG 1 tablet in the morning Orally Once a day Active hyoscyamine sulfate 0.125 mg disintegrating oral tablet (8 sources) take 1 tablet by mouth every six hours Hyoscyamine Sulfate 0.125 MG 1 tablet on the tongue and allow to dissolve Orally Four times a day Active levothyroxine sodium 0.1 mg oral tablet (10 sources) l-Thyroxine Start: 10-28-2022 take 100 ug by mouth once daily Levothyroxine Active 100 MCG PO Daily October 28, 2022 12:00am Start: 08-31-2018 End: 10-28-2022 take 1 tablet by mouth once daily Levothyroxine (Synthroid) 88 mcg Tablet Discontinued 88 MCG PO Daily August 31, 2018 1:00am October 28, 2022 9:37pm take 1 tablet by joseph th once daily in the morning Levothyroxine Sodium 100 MCG 1 tablet in the morning on an empty stomach Orally Once a day Active linaclotide 0.29 mg oral capsule (9 sources) Guanylate Cyclase-C Agonist Start: 10-28-2022 take 1 capsule by mouth once daily Linaclotide (Linzess) 290 mcg capsule Active 290 MCG PO Daily October 28, 2022 12:00am Linzess 290 290m cg 1 PO every other day Active Linzess 290 290m cg 1 PO Every AM Active liothyronine sodium 0.025 mg oral tablet (9 sources) l-Triiodothyronine Start: 10-28-2022 take 25 ug by mouth once daily Liothyronine Active 25 MCG PO Daily October 28, 2022 12:00am take 1 tablet by joseph th every twenty-four hours Liothyronine Sodium 25 MCG 1 tablet on a n empty stomach Orally Once a day Active loratadine 10 mg oral tablet (2 sources) take 1 tablet by mouth every twenty-four hours Claritin 10 MG 1 tablet Orally Once a day Active metoclopramide 5 mg oral tablet (8 sources) Dopamine-2 Receptor Antagonist Start: 019 take 1 tablet by mouth once daily Metoclopramide Hcl (Reglan) 5 mg Tablet Active 5 MG PO Daily August 31, 2018 1:00am take 1 tablet by mouth every six hours Metoclopramide HCl 10 MG 1 tablet before meals Orally Four times a day Active metoprolol tartrate 25 mg oral tablet (9 sources) beta-Adrenergic Catrachita Start: 08-31-2018 take 50 mg by mouth twice daily Metoprolol Tartrate Active 50 MG PO Twice daily August 31, 2018 1:00am take 1 tablet by joseph th every twelve hours Metoprolol Tartrate 50 MG 1 tablet with food Orally Twice a day Not-Taking Multi For Her - (8 sources) Multi For Her - as directed Orally Active Ol-Dxwixbk-Zpa-Iron Fm-Fa-Vitk (Multi For Her) 18 mg iron-600 mcg-80 mcg Tablet (1 source) Start: 9 take 1 tablet by mouth once daily Xt-Ykebbbs-Ugf-Iron Fm-Fa-Vitk (Multi For Her) 18 mg iron-600 mcg-80 mcg Tablet Active 1 TAB PO Daily August 31, 2018 1:00am ondansetron 4 mg oral tablet (9 sources) Serotonin-3 Receptor Antagonist Start: 9 Ondansetron Hcl (Zofran) 4 mg Tablet Active 4 MG PO every 6 to 8 hours August 31, 2018 1:00am take 1 tablet by joseph th once daily as needed Ondansetron 4 MG 1 tablet on the tongue and allow to dissolve Orally Once a day PRN Active pantoprazole 20 mg delayed release oral tablet (9 sources) Proton Pump Inhibitor Start: 08-31-2018 take 1 tablet by mouth once daily Pantoprazole (Protonix) 20 mg Tablet,Delayed Release (Dr/Ec) Active 20 MG PO Daily August 31, 2018 1:00am take 1 tablet by joseph th every twelve hours Pantoprazole Sodium 40 MG 1 tablet Orall y TWICE A DAY Active potassium chloride 10 meq extended release oral capsule (5 sources) Start: 08-31-2018 take 10 mEq by mouth once daily Potassium Chloride Active 10 MEQ PO Daily August 31, 2018 1:00am take 1 tablet by joseph th every twenty-four hours Klor-Con 10 10 MEQ 1 tablet with food Orally daily Active take 1 tablet by mouth every twe lve hours Potassium Chloride ER 10 MEQ 1 tablet with food Orally Twice a day Active Probiotic (Lactobacillus) - (1 source) take 3 capsules by mouth once daily Probiotic (Lactobacillus) - as directed Orally 3 CAPSULES DAILY Active promethazine hydrochloride 12.5 mg oral tablet (1 source) Phenothiazine take 1 tablet by mouth every six hours Promethazine HCl 12.5 MG 1 tablet as needed Orally every 6 hrs Active rizatriptan 10 mg disintegrating oral tablet (1 source) Serotonin-1b and Serotonin-1d Receptor Agonist take 1 tablet by mouth every two hours as needed, then take 3 tablets by mouth every twenty-four hours as needed Rizatriptan Benzoate 10 MG 1 tablet Orally EVERY 2 HOURS PRN, DO NOT EXCEED 3 DOSES PER 24 HRS. Active sacubitril 49 mg / valsartan 51 mg oral tablet (13 sources) Angiotensin 2 Receptor Catrachita Start: 023 take 1 tablet by mouth twice daily Sacubitril-Valsartan (Entresto) 49-51 mg tablet Active 1 TAB PO Twice daily October 28, 2022 12:00am take 1 tablet by mouth every twe lve hours Entresto 97-103 MG 1 tablet Orally Twice a day Active take 3 tablets by mouth twice da michael Sacubitril-Valsartan 97-103 MG 3 tablet Orally Twice a day Active take 3 tablets by mouth twice da michael Sacubitril-Valsartan 24-26 MG 3 tablet Orally Twice a day Active spironolactone 50 mg oral tablet (1 source) Aldosterone Antagonist Start: 08-31-2018 take 100 mg by mouth once daily Spironolactone Active 100 MG PO Daily August 31, 2018 1:00am tiZANidine 4 mg oral capsule (9 sources) Central alpha-2 Adrenergic Agonist Start: 08-31-2018 Tizanidine Active 4 MG PO every 6 to 8 hours August 31, 2018 1:00am take 1 tablet by mouth every six hours tiZANidine HCl 4 MG 1 tablet as needed Orally four times a day Active Urea (Ure-Na) 15 gram Powder In Packet (1 source) Start: 09-04-2018 Urea (Ure-Na) 15 gram Powder In Packet Active 30 GM PO Daily September 04, 2018 12:00am Completed/Discontinued Medications Medication Drug Class(es) Dates Sig (Normalized) Sig (Original) fluconazole 100 mg oral tablet (1 source) Azole Antifungal Start: 08-31-2018 End: 09-04-2018 take 100 mg by mouth once daily Fluconazole Discontinued 100 MG PO Daily August 31, 2018 1:00am September 04, 2018 7:59am levoFLOXacin 750 mg oral tablet (1 source) Quinolone Antimicrobial Start: 08-31-2018 End: 09-04-2018 take 750 mg by mouth once daily Levofloxacin Discontinued 750 MG PO Daily August 31, 2018 1:00am September 04, 2018 7:59am primidone 50 mg oral tablet (9 sources) Anti-epileptic Agent Start: 08-31-2018 End: 09-04-2018 take 100 mg by mouth twice daily Primidone Discontinued 100 MG PO Twice daily August 31, 2018 1:00am September 04, 2018 7:59am take 2 tablets by mo uth every twenty-four hours Primidone 50 MG 2 tablet Orally Once a day Active sevelamer carbonate 800 mg oral tablet (4 sources) Phosphate Binder take 1 tablet by mouth every eight hours Renvela 800 MG 1 tablet with meals Orally Three times a day for 90 days Not-Taking sodium chloride 1000 mg oral tablet (1 source) Start: 08-31-2018 End: 09-04-2018 Sodium Chloride Discontinued 1000 MG PO 1 to 4 times daily August 31, 2018 1:00am September 04, 2018 8:01am Problems Active Problems Problem Classification Problem Date Documented Date Episodic/Chronic Acute posthemorrhagic anemia (1 source) Acute posthemorrhagic anemia; Translations: [ACUTE POSTHEMORRHAGIC ANEMIA] Onset: 3 Episodic Anxiety disorders (1 source) Anxiety disorder, unspecified; Translations: [ANXIETY DISORDER UNSPECIFIED] Onset: 3 Chronic Bacterial infection; unspecified site (1 source) Unspecified Escherichia coli [E. coli] as the cause of diseases classified elsewhere; Translations: [UNS E COLI CAUSE DX CLASS ELSEWHERE] Onset: 3 Episodic Chronic kidney disease (20 sources) Chronic kidney disease stage 3; Translations: [Chronic kidney disease, stage 3 (moderate)] Onset: 3 10-28-2022 Chronic Chronic obstructive pulmonary disease and bronchiectasis (1 source) Chronic obstructive pulmonary disease, unspecified; Translations: [COPD UNSPECIFIED] Onset: 3 Chronic Complication of device; implant or graft (5 sources) Other mechanical complication of infusion catheter, initial encounter; Translations: [Other mechanical complication of other cardiac and vascular devices and implants, initial encounter] Onset: 3 Episodic Congestive heart failure; nonhypertensive (19 sources) Congestive heart failure; Translations: [Heart failure, unspecified] Onset: 1 Resolved: 1 Chronic Coronary atherosclerosis and other heart disease (3 sources) Atherosclerotic heart disease of [place] coronary artery without angina pectoris; Translations: [ASHD [place] W/O ANGINA PECTORIS] Onset: 3 Chronic Deficiency and other anemia (8 sources) Anemia of renal disease; Translations: [Anemia in chronic kidney disease] Chronic Deficiency and other anemia (5 sources) Anemia in chronic kidney disease; Translations: [ANEMIA IN CHRONIC KIDNEY DISEASE] Onset: 1 Resolved: 1 Chronic Deficiency and other anemia (1 source) 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; Translations: [SEC SIDEROBLASTIC ANEMIA DUE DZ] Onset: 3 Chronic Deficiency and other anemia (1 source) Anemia; Translations: [Anemia, unspecified] 10-28-2022 Episodic Deficiency and other anemia (1 source) Anemia, unspecified; Translations: [ANEMIA UNSPECIFIED] Onset: 3 Episodic Deficiency and other anemia (1 source) Iron deficiency anemia, unspecified; Translations: [IRON DEFICIENCY ANEMIA UNSPECIFIED] Onset: 3 Episodic E Codes: Adverse effects of medical drugs (1 source) Adverse effect of lzbuegqwcjl-iajrxqvpfe-r nzyme inhibitors, initial encounter; Translations: [ADVERSE EFFECT ACEI INITIAL ENCNTR] Onset: 3 Episodic Epilepsy; convulsions (1 source) Epilepsy, unspecified, not intractable, without status epilepticus; Translations: [EPILEPSY UNS NOT INTRACT W/O SE] Onset: 3 Chronic Esophageal disorders (1 source) Gastro-esophageal reflux disease without esophagitis; Translations: [GERD WITHOUT ESOPHAGITIS] Onset: 3 Chronic Essential hypertension (8 sources) Hypertensive disorder; Translations: [Essential (primary) hypertension] Onset: 3 09-04-2018 Chronic Fluid and electrolyte disorders (20 sources) Hypervolemia; Translations: [Fluid overload, unspecified] Onset: 1 Resolved: 1 Episodic Headache; including migraine (12 sources) Refractory migraine with aura; Translations: [Persistent migraine aura without cerebral infarction, intractable, without status migrainosus] Onset: 3 Chronic Headache; including migraine (5 sources) Headache; including migraine; Translations: [HEADACHE UNSPECIFIED] Onset: 3 Heart valve disorders (11 sources) Rheumatic disorders of both mitral and tricuspid valves; Translations: [Rheumatic tricuspid insufficiency] Onset: 3 Chronic Hypertension with complications and secondary hypertension (20 sources) Hypertensive renal disease; Translations: [Hypertensive chronic kidney disease with stage 1 through stage 4 chronic kidney disease, or unspecified chronic kidney disease] Onset: 1 Resolved: 1 Chronic Menopausal disorders (4 sources) Postmenopausal bleeding; Translations: [POSTMENOPAUSAL BLEEDING] Onset: 2 Chronic Mood disorders (1 source) Mood disorders; Translations: [DEPRESSION UNSPECIFIED] Onset: 3 Nausea and vomiting (8 sources) Nausea; Translations: [Nausea] Episodic Nutritional deficiencies (13 sources) Vitamin D deficiency; Translations: [Vitamin D deficiency, unspecified] Onset: 1 Resolved: 1 Chronic Osteoarthritis (4 sources) Bilateral primary osteoarthritis of hip; Translations: [Unilateral primary osteoarthritis, left knee] Onset: 3 Chronic Osteoporosis (1 source) Age-related osteoporosis without current pathological fracture; Translations: [AGE-REL OSTEOPOR W/O CURR PATH FX] Onset: 3 Chronic Other aftercare (1 source) Polypharmacy ; Translations: [Other quilting supervisor (current) drug therapy] 09-04-2018 Episodic Other aftercare (1 source) Other skilled nursing (current) drug therapy; Translations: [OTH INSTRUMENT ROOM TECHNICIAN 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 THERAPY] Onset: 3 Episodic Other circulatory disease (1 source) Personal history of transient ischemic attack (TIA), and cerebral infarction without residual deficits; Translations: [PERS HX TIA AND CI NO RESID DEFICIT] Onset: 3 Episodic Other connective tissue disease (1 source) Presence of unspecified artificial knee joint; Translations: [PRESENCE UNS ARTIFICIAL KNEE JOINT] Onset: 3 Chronic Other connective tissue disease (1 source) Myalgia, unspecified site; Translations: [MYALGIA UNSPECIFIED SITE] Onset: 3 Episodic Other connective tissue disease (1 source) Neuralgia and neuritis, unspecified; Translations: [NEURALGIA AND NEURITIS UNSPECIFIED] Onset: 3 Episodic Other diseases of kidney and ureters (8 sources) Hyperparathyroidism due to renal insufficiency; Translations: [Secondary hyperparathyroidism of renal origin] Chronic Other diseases of kidney and ureters (5 sources) Secondary hyperparathyroidism of renal origin; Translations: [SEC HYPERPARATHYROIDISM RENAL ORIGN] Onset: 1 Resolved: 1 Chronic Other diseases of kidney and ureters (3 sources) Disorder of kidney and ureter, unspecified; Translations: [DISORDER KIDNEY AND URETER UNS] Onset: 3 Episodic Other diseases of veins and lymphatics (1 source) Venous insufficiency (chronic) (peripheral); Translations: [VENOUS INSUFF CHRONIC PERIPHERAL] Onset: 3 Episodic Other endocrine disorders (16 sources) Hypoglycemia; Translations: [Hypoglycemia, unspecified] Chronic Other gastrointestinal disorders (8 sources) Diarrhea; Translations: [Diarrhea, unspecified] Episodic Other gastrointestinal disorders (1 source) Bariatric surgery status; Translations: [BARIATRIC SURGERY STATUS] Onset: 3 Episodic Other lower respiratory disease (1 source) Shortness of breath; Translations: [Shortness of breath] Onset: 3 Episodic Other lower respiratory disease (4 sources) Shortness of breath; Translations: [SHORTNESS OF BREATH] Onset: 3 Episodic Other nervous system disorders (1 source) Other chronic pain; Translations: [OTHER CHRONIC PAIN] Onset: 3 Chronic Other nervous system disorders (4 sources) Chronic pain syndrome; Translations: [CHRONIC PAIN SYNDROME] Onset: 2 Chronic Other nervous system disorders (1 source) Paresthesia of skin; Translations: [PARESTHESIA OF SKIN] Onset: 3 Episodic Other non-traumatic joint disorders (7 sources) Pain in left knee; Translations: [PAIN IN LEFT KNEE] Onset: 3 Episodic Other non-traumatic joint disorders (3 sources) Pain in left hip; Translations: [PAIN IN LEFT HIP] Onset: 3 Episodic Other non-traumatic joint disorders (5 sources) Pain in right hip; Translations: [PAIN IN RIGHT HIP] Onset: 3 Episodic Other nutritional; endocrine; and metabolic disorders (1 source) Morbid (severe) obesity due to excess calories; Translations: [MORBID SEVERE OBES D/T EXCESS ROGER] Onset: 3 Chronic Other nutritional; endocrine; and metabolic disorders (1 source) Body mass index (BMI) 34.0-34.9, adult; Translations: [BODY MASS INDEX BMI 34.0-34.9 ADULT] Onset: 3 Chronic Other nutritional; endocrine; and metabolic disorders (1 source) Body mass index (BMI) 31.0-31.9, adult; Translations: [BODY MASS INDEX BMI 31.0-31.9 ADULT] Onset: 3 Chronic Other nutritional; endocrine; and metabolic disorders (2 sources) Hyperphosphatemia; Translations: [Other disorders of phosphorus metabolism] Chronic Other nutritional; endocrine; and metabolic disorders (1 source) Other disorders of phosphorus metabolism Chronic Paralysis (1 source) Flaccid hemiplegia affecting right dominant side; Translations: [FLACCID HEMIPL AFFECT RT DOM SIDE] Onset: 3 Chronic Phlebitis; thrombophlebitis and thromboembolism (1 source) Personal history of other venous thrombosis and embolism; Translations: [PERS HX OTH VENOUS THROMBOSIS AND EMBO] Onset: 3 Episodic Pulmonary heart disease (7 sources) Pulmonary hypertension, unspecified; Translations: [PULMONARY HYPERTENSION UNSPECIFIED] Onset: 2 Chronic Pulmonary heart disease (1 source) Personal history of pulmonary embolism; Translations: [PERSONAL HISTORY PULMONARY EMBOLISM] Onset: 3 Episodic Residual codes; unclassified (1 source) Acquired absence of both cervix and uterus; Translations: [ACQUIRED ABSENCE BOTH CERVIX AND UTERUS] Onset: 3 Episodic Residual codes; unclassified (1 source) Acquired absence of other specified parts of digestive tract; Translations: [ACQ ABSENCE OTH PART DIGESTV TRACT] Onset: 3 Episodic Residual codes; unclassified (1 source) Edema, unspecified; Translations: [EDEMA UNSPECIFIED] Onset: 3 Episodic Spondylosis; intervertebral disc disorders; other back problems (20 sources) Cervical spondylosis; Translations: [Spondylosis without myelopathy or radiculopathy, cervical region] Onset: 2 Chronic Thyroid disorders (1 source) Hypothyroidism, unspecified; Translations: [HYPOTHYROIDISM UNSPECIFIED] Onset: 3 Chronic Unclassified (4 sources) LOW BACK PAIN, UNSPECIFIED; Translations: [LOW BACK PAIN, UNSPECIFIED] Onset: 3 Unclassified (1 source) PERSONAL HISTORY OF COVID-19; Translations: [PERSONAL HISTORY OF COVID-19] Onset: 3 Unclassified (1 source) CONTACT W/AND (SUSP) EXPOS COVID-19; Translations: [CONTACT W/AND (SUSP) EXPOS COVID-19] Onset: 3 Unclassified (1 source) CHRN KIDNEY DISEASE STG 3 UNSP; Translations: [CHRN KIDNEY DISEASE STG 3 UNSP] Onset: 3 Urinary tract infections (1 source) Urinary tract infection, site not specified; Translations: [UTI SITE NOT SPECIFIED] Onset: 3 Episodic Past or Other Problems Problem Classification Problem Date Documented Da te Episodic/Chronic Acute and unspecified renal failure (1 source) Acute kidney failure, unspecified; Translations: [ACUTE KIDNEY FAILURE UNSPECIFIED] Onset: 07-04-2022 Episodic Chronic kidney disease (6 sources) Chronic kidney disease; Translations: [Chronic kidney disease, stage 3a] Onset: 06-16-2021 Resolved: 06-16-2021 E Codes: Fall (1 source) Fall (on) (from) unspecified stairs and steps, initial encounter; Translations: [FALL ON FROM UNS STAIRS STEPS INIT] Onset: 08-17-2022 Episodic Fracture of upper limb (4 sources) Displaced fracture of triquetrum [cuneiform] bone, right wrist, initial encounter for closed fracture; Translations: [DSPL FX TRIQUETRUM BN RT WR INT ASHWIN] Onset: 08-16-2022 Episodic Malaise and fatigue (8 sources) Asthenia; Translations: [Weakness] Onset: 03-31-2022 09-04-2018 Episodic Menopausal disorders (1 source) Hormone replacement therapy; Translations: [HORMONE REPLACEMENT THERAPY] Onset: 08-17-2022 Episodic Nonmalignant breast conditions (1 source) Unspecified lump in the right breast, unspecified quadrant; Translations: [UNS LUMP IN RT BREAST UNS QUADRANT] Onset: 01-25-2022 Episodic Other connective tissue disease (1 source) Other muscle spasm; Translations: [OTHER MUSCLE SPASM] Onset: 05-05-2022 Episodic Other injuries and conditions due to external causes (3 sources) Unspecified injury of right wrist, hand and finger(s), initial encounter; Translations: [UNS INJ RT WRIST HAND FINGERS INIT] Onset: 08-06-2022 Episodic Other injuries and conditions due to external causes (1 source) Other specified injuries of head, initial encounter; Translations: [OTH SPEC INJURIES HEAD INITIAL ENC] Onset: 08-17-2022 Episodic Other non-traumatic joint disorders (1 source) Pain in unspecified hip; Translations: [PAIN IN UNSPECIFIED HIP] Onset: 05-08-2022 Episodic Other screening for suspected conditions (not mental disorders or infectious disease) (8 sources) Other abnormal and inconclusive findings on diagnostic imaging of breast; Translations: [Encounter for screening mammogram for malignant neoplasm of breast] Onset: 12-30-2021 Episodic Spondylosis; intervertebral disc disorders; other back problems (9 sources) Muscle spasm of back; Translations: [Cervical disc disorder with radiculopathy, unspecified cervical region] Onset: 01-27-2022 Episodic Superficial injury; contusion (2 sources) Contusion of right wrist, initial encounter; Translations: [Contusion of scalp, initial encounter] Onset: 08-17-2022 Episodic Unclassified (1 source) LOW BACK PAIN, UNSPECIFIED; Translations: [LOW BACK PAIN, UNSPECIFIED] Onset: 10-27-2022 Results Test Name Value Interpretation Reference Range Facility Office Visiton 02-22-2023 Follow-up visit [id number] Loren Moser 1960 F Date Provider Department Center 02/22/2023 Nick-RHIANNON BERNARD Family History Family history unknown: Yes Level of Service:54345 [place] OFFICE/OUTPATIENT ESTABLISHED MOD MDM 30-39 MIN Normal [facility] Follow-Upon 02-16-2023 Follow-Up [id number] Loren Moser 1960 F Date Provider Department Center 02/16/2023 293-SONNYTENISHA ALONSOD ORTHO [facility]THO Family History Family history unknown: Yes Level of Service:68716 [place] OFFICE/OUTPATIENT ESTABLISHED LOW MDM 20-29 MIN Reason for Visit and Comments: Pain [136] [facility] Consultation Noteon 02-10-20 Consultation Note [id number]:127 [facility] 36on 02-08-2023 36 Called patient to in form her she needs the CT done before her follow up w/ francisco. The appt has been cancelled and needs rescheduled. [facility] Consultation Noteon 02-09-20 Consultation Note [id number]:127 [facility] RAD - MISCon 02-08-2023 RAD - MISC [id number]:127 [facility] 29on 01-13-2023 29 Addended by: OLU TORRES on: 02/07/2023 12:47 PM Modules accepted: Orders Normal [facility] Office Visiton 01-13-2023 Follow-up visit [id number] Loren Moser 1960 Provider Department Center 01/13/2023 [facility] Family History Family history unknown: Yes Level of Service:15396 [place] OFFICE/OUTPATIENT NEW MODERATE MDM 45-59 MINUTES Reason for Visit and Comments: Pain [136] Pain [136] [facility] 36on 12-23-2022 36 Please tell her the renal function is much better now (creatinine 1.4 on 12/20/2022). I don't think she need to increase water pills. Follow up labs as scheduled. [facility] Telephoneon 12-23-2022 Telephone [id number] Loren Moser 1960 F Date Provider Department Center 12/23/2022 BENJIE LERMA [facility] No family history on file [facility] Office Visiton 12-15-2022 Follow-up visit [id number] Loren Moser [place] 1960 Provider Department Center 12/15/2022 BENJIE LERMA [facility] No family history on file Level of Service:98114 [place] OFFICE/OUTPATIENT ESTABLISHED MOD MDM 30-39 MIN Reason for Visit and Comments: Follow-up [334432] [facility] HPon 11-30-2022 HP H&P reviewed. The pa lux was examined and there are no changes to the H&P. [facility] NURSNOTEon 11-30-2022 NURSNOTE RN educated pt on d/ c instructions. RN encouraged pt to voice any questions or concerns. Pt verbalizes no questions or concerns at this time. Pt was walked off of unit with all of belongings. [facility] Orders Onlyon 11-23-2022 Orders Only [id number] Loren Moser marii [place] 1960 Provider Department Center 11/23/2022 MARTHA LAZCANO [facility] No family history on file [facility] CBC AUTO DIFFon 11-22-2022 BASO # 0.0 103/ul Normal 0.0-0.1 [facility] Comment on above: Performed By: #### C BC ####[facility] [address] [place] [address]Dr. Airam Tripathi Basophils/100 WBC (Bld) 0.6 % Normal 0.2-2.0 [facility] Comment on above: Performed By: #### C BC ####[facility] [address] [place] [id number]. Airam Tripathi EO # 0.1 103/ul Normal 0.0-0.7 [facility] Comment on above: Performed By: #### C BC ####[facility] [address] [place] [id number]. Airam Tripathi Eosinophils/100 WBC (Bld) 1.7 % Normal 0.9-7.0 [facility] Comment on above: Performed By: #### C BC ####[facility] [address] [place] [address]Dr. Airam Tripathi Erythrocyte distribution width (RBC) [Ratio] 15.2 % Critically high 11.0-15.0 [facility] Comment on above: Performed By: #### C BC ####[facility] [address] [place], [place] [address]Dr. Airam Tripathi Hematocrit (Bld) [Volume fraction] 31.6 % Critically low 36.0-48.0 [facility] Comment on above: Performed By: #### C BC ####[facility] [address] [place], [place] [address]Dr. Selenaneil Tripathi Hemoglobin (Bld) [Mass/Vol] 9.9 g/dL Critically low 12.0-16.0 [facility] Comment on above: Performed By: #### C BC ####[facility] [address] [place], [place] [address]Dr. Airam Tripathi IG # 0.02 10e3/ul Normal 0.00-0.03 [facility] Comment on above: Performed By: #### C BC ####[facility] [address] [place], [place] [address]Dr. Selenaneil Tripathi IG % 0.4 % Normal 0.0-0.5 [facility] Comment on above: Performed By: #### C BC ####[facility] [address] [place], [place] [address]Dr. Airam Tripathi LYMPH # 0.8 103/ul Critically low 1.2-3.8 [facility] Comment on above: Performed By: #### C BC ####[facility] [address] [place], [place] [address]Dr. Airam Tripathi Lymphocytes/100 WBC (Bld) 16.9 % Critically low 20.5-60.0 [facility] Comment on above: Performed By: #### C BC ####[facility] [address] [place], [place] [address]Dr. Airam Tripathi MANUAL DIFF REQ NO Normal [facility] Comment on above: Performed By: #### C BC ####[facility] [address] [place] [address]Dr. Airam Deuce MCH (RBC) [Entitic mass] 28.4 pg Normal 26.7-34.0 [facility] Comment on above: Performed By: #### C BC ####[facility] [address] [place] [address]Dr. Airam Tripathi MCHC (RBC) [Mass/Vol] 31.3 g/dL Normal 29.9-35.2 [facility] Comment on above: Performed By: #### C BC ####[facility] [address] [place], [place] [address]DrKianna Tripathi MCV (RBC) [Entitic vol] 90.8 fL Normal 81.0-99.0 [facility] Comment on above: Performed By: #### C BC ####[facility] [address] [place], [place] [address]DrKianna Tripathi MONO # 0.4 103/ul Normal 0.3-0.8 [facility] Comment on above: Performed By: #### C BC ####[facility] [address] [place], [place] [address]DrKianna Tripathi Monocytes/100 WBC (Bld) 8.9 % Normal 1.7-12.0 [facility] Comment on above: Performed By: #### C BC ####[facility] [address] [place], [place] [address]DrKianna Tripathi NEUT # 3.4 103/ul Normal 1.4-6.5 [facility] Comment on above: Performed By: #### C BC ####[facility] [address] [place], [place] [address]DrKianna Tripathi Neutrophils/100 WBC (Bld) 71.5 % Normal 43.0-75.0 [facility] Comment on above: Performed By: #### C BC ####[facility] [address] [place], [place] [address]DrKianna Tripathi Platelet mean volume (Bld) [Entitic vol] 9.4 fL Critically low 9.5-13.5 [facility] Comment on above: Performed By: #### C BC ####[facility] [address] [place] [address]Dr. Airam Tripathi PLT 302 103/ul Normal 150-450 [facility] Comment on above: Performed By: #### C BC ####[facility] [address] [place] [address]Dr. Airam Tripathi RBC 3.48 106/ul Critically low 4.20-5.40 [facility] Comment on above: Performed By: #### C BC ####[facility] [facility] [address] [place] [address]Dr. Airam Tripathi WBC 4.7 103/ul Normal 4.0-11.0 [facility] Comment on above: Performed By: #### C BC ####[facility] Qz[address]sod[address] [place] [address]DrKianna Tripathi PROF 14(COMP METB)on 023 Albumin [Mass/Vol] 3.4 g/dL Normal 3.4-5.0 [facility] Comment on above: Performed By: #### C MP ####[facility] [address]qu[address] [place], [place] [address]DrKianna rTipathi Albumin/Globulin [Mass ratio] 1.0 {ratio} Normal [facility] Comment on above: Performed By: #### C MP ####[facility] [address] [place] [address]Dr. Airam Tripathi ALP [Catalytic activity/Vol] 123 U/L Critically high 46-116 [facility] Comment on above: Performed By: #### C MP ####[facility] Ywdmxqhgrb[address] [place] [address]Dr. Airam Tripathi ALT [Catalytic activity/Vol] 24 U/L Normal 14-59 [facility] Comment on above: Performed By: #### C MP ####[facility] Dlidmgzoxu[address] [place] [address]DrKianna Tripathi Anion gap [Moles/Vol] 12.1 mmol/L Normal Th e [facility] Comment on above: Performed By: #### C MP ####[facility] Acshvenxlo[address] [place] [id number]. Airam Tripathi AST [Catalytic activity/Vol] 30 U/L Normal 15-37 [facility] Comment on above: Performed By: #### C MP ####[facility] Lsqhdalpmb6[address] [place] [phone]. Airam Tripathi Bilirubin [Mass/Vol] 0.4 mg/dL Normal 0.2-1.0 [facility] Comment on above: Performed By: #### C MP ####[facility] Ivuyuiidps[address] [place] [phone]. Airam Tirpathi Calcium [Mass/Vol] 8.9 mg/dL Normal 8.5-10.1 [facility] Comment on above: Performed By: #### C MP ####[facility] [address]zohbtf[address] [place], [place] [address]Dr. Airam Tripathi Chloride [Moles/Vol] 95 mmol/L Critically low 98-107 [facility] Comment on above: Performed By: #### C MP ####[facility] Efxcbwhqoz39[address] [place] [phone]. Airam Tripathi CO2 [Moles/Vol] 28.7 mmol/L Normal 21.0-32.0 [facility] Comment on above: Performed By: #### C MP ####[facility] Xmlejgcjod[address] [place] [phone]. Airam Tripathi Creatinine [Mass/Vol] 1.25 mg/dL Critically high 0.55-1.02 [facility] Comment on above: Performed By: #### C MP ####[facility] Vrbhhzcgys[address] [place] [id number]. Airam Tripathi EGFR-AF VENEZUELAN 53 mL/min/1.73m2 Critically low >=60 [facility] Comment on above: Performed By: #### C MP ####[facility] Awlceaddbp[address] [place] [phone]. Airam Deuce EGFR-NON AF VENEZUELAN 44 mL/min/1.73m2 Critically low >=60 [facility] Comment on above: Performed By: #### C MP ####[facility] [address]zfczwrp[address] [place] [address]Dr. Airam Tripathi Globulin (S) [Mass/Vol] 3.5 g/dL Normal [facility] Comment on above: Performed By: #### C MP ####[facility] Tsweubhrtr[address] [place] [address]Dr. Airam Tripathi Glucose [Mass/Vol] 89 mg/dL Normal 74-106 [facility] Comment on above: Performed By: #### C MP ####[facility] Frwavqjidf[address] [place] [address]Dr. Airam Deuce Potassium [Moles/Vol] 4.8 mmol/L Normal 3.5-5.1 [facility] Comment on above: Performed By: #### C MP ####[facility] Tajwurejpn[address] [place], [place] [address]Dr. Airam Deuce Protein [Mass/Vol] 6.9 g/dL Normal 6.4-8.2 [facility] Comment on above: Performed By: #### C MP ####[facility] Cfbbkvbaru[address] [place] [address]Dr. Airam Deuce Sodium [Moles/Vol] 131 mmol/L Critically low 136-145 [facility] Comment on above: Performed By: #### C MP ####[facility] Cpwuuoidgz[address] [place] [address]Dr. Airam Deuce Urea nitrogen [Mass/Vol] 37.0 mg/dL Critically high 7.0-18.0 [facility] Comment on above: Performed By: #### C MP ####[facility] Xqopwvyzmv[address] [place] [address]Dr. Airam Deuce Urea nitrogen/Creatinine [Mass ratio] 29.6 mg/mg Normal [facility] Comment on above: Performed By: #### C MP ####[facility] Xtubagprbr[address] [place] [address]Dr. Airam Deuce OSMOLALITYon 11-18-2022 Osmolality [Osmolality] 293 mosm/kg Normal 275-295 [facility] Comment on above: Performed By: #### O SMO ####[facility] Xkvxflogkb02[address] [place], [place] [address]Dr. Airam Tripathi BNPon 11-16-2022 Natriuretic peptide B (Bld) [Mass/Vol] 1142.0 pg/mL Critically high <=900.0 [facility] Comment on above: Performed By: #### B UN[employer]PENTER ####[facility] Rqgpzpexsp7[address] [place], [place] [address]Dr. Airam Deuce CBC AUTO DIFFon 11-16-2022 BASO # 0.0 103/ul Normal 0.0-0.1 [facility] Comment on above: Performed By: #### C BC ####[facility] Vxqeakhqkp[address] [place], [place] [address]Dr. Airam Tripathi Basophils/100 WBC (Bld) 0.3 % Normal 0.2-2.0 [facility] Comment on above: Performed By: #### C BC ####[facility] Yaesbqeasi[address] [place], [place] [address]Dr. Airam Tripahti EO # 0.3 103/ul Normal 0.0-0.7 [facility] Comment on above: Performed By: #### C BC ####[facility] Iqhdmxwoka[address] [place], [place] [address]Dr. Airam Tripathi Eosinophils/100 WBC (Bld) 4.6 % Normal 0.9-7.0 [facility] Comment on above: Performed By: #### C BC ####[facility] Suevbxassi[address]25[address] [place], [place] [address]Dr. Airam Tripathi Erythrocyte distribution width (RBC) [Ratio] 16.1 % Critically high 11.0-15.0 [facility] Comment on above: Performed By: #### C BC ####[facility] Yqspjqrror8[address] [place], [place] [address]DrKianna Tripathi Hematocrit (Bld) [Volume fraction] 28.0 % Critically low 36.0-48.0 [facility] Comment on above: Performed By: #### C BC ####[facility] Otxbv[address]fdz[address] [place] [address]Dr. Airam Tripathi Hemoglobin (Bld) [Mass/Vol] 8.9 g/dL Critically low 12.0-16.0 [facility] Comment on above: Performed By: #### C BC ####[facility] Ed[address]lsfkafn[address] [place] [address]Dr. Airam Tripathi IG # 0.02 10e3/ul Normal 0.00-0.03 [facility] Comment on above: Performed By: #### C BC ####[facility] Ujnsbzrila[address] [place] [address]Dr. Airam Tripathi IG % 0.3 % Normal 0.0-0.5 [facility] Comment on above: Performed By: #### C BC ####[facility] Biqnfdmfys[address] [place], [place] [address]Dr. Airam Tripathi LYMPH # 1.5 103/ul Normal 1.2-3.8 [facility] Comment on above: Performed By: #### C BC ####[facility] Dhuofutkyx[address] [place], [place] [address]Dr. Airam Tripathi Lymphocytes/100 WBC (Bld) 24.2 % Normal 20.5-60.0 [facility] Comment on above: Performed By: #### C BC ####[facility] Spwajazyqn[address] [place], [place] [address]Dr. Airam Tripathi MANUAL DIFF REQ NO Normal [facility] Comment on above: Performed By: #### C BC ####[facility] Pyvddvxtgs[address] [place], [place] [address]Dr. Airam Tripathi MCH (RBC) [Entitic mass] 29.3 pg Normal 26.7-34.0 [facility] Comment on above: Performed By: #### C BC ####[facility] [address]lhvlhxzjk69[address] [place], [place] [address]Dr. Airam Tripathi MCHC (RBC) [Mass/Vol] 31.8 g/dL Normal 29.9-35.2 [facility] Comment on above: Performed By: #### C BC ####[facility] Jdszpmalxk[address] [place], [place] [address]Dr. Airam Tripathi MCV (RBC) [Entitic vol] 92.1 fL Normal 81.0-99.0 [facility] Comment on above: Performed By: #### C BC ####[facility] [address]ioatdxng[address] [place] [address]Dr. Airam Tripathi MONO # 0.6 103/ul Normal 0.3-0.8 [facility] Comment on above: Performed By: #### C BC ####[facility] Wuzsjacyhc[address] [place], [place] [address]Dr. Airam Deuce Monocytes/100 WBC (Bld) 10.0 % Normal 1.7-12.0 [facility] Comment on above: Performed By: #### C BC ####[facility] Nymtiiyyfl[address] [place], [place] [address]Dr. Airam Tripathi NEUT # 3.7 103/ul Normal 1.4-6.5 [facility] Comment on above: Performed By: #### C BC ####[facility] Otxyhsnnim[address] [place], [place] [address]Dr. Airam Deuce Neutrophils/100 WBC (Bld) 60.6 % Normal 43.0-75.0 [facility] Comment on above: Performed By: #### C BC ####[facility] Juyujyylic10[address] [place], [place] [address]Dr. Airam Deuce Platelet mean volume (Bld) [Entitic vol] 9.1 fL Critically low 9.5-13.5 [facility] Comment on above: Performed By: #### C BC ####[facility] Nwtksalazw[address] [place], [place] [address]Dr. Airam Deuce PLT 242 103/ul Normal 150-450 [facility] Comment on above: Performed By: #### C BC ####[facility] Qjefnanvwd8[address] [place], [place] [address]Dr. Selenaneil Deuce RBC 3.04 106/ul Critically low 4.20-5.40 [facility] Comment on above: Performed By: #### C BC ####[facility] [address]afpbdowk[address] [place], [place] [address]DrKianna Tripathi WBC 6.1 103/ul Normal 4.0-11.0 [facility] Comment on above: Performed By: #### C BC ####[facility] [address]ajifb[address] [place] [address]Dr. Airam Tripathi CT STROKE HEAD WOon 11-17-19 CT STROKE HEAD WO Normal [facility] PROF CHEM 8 (BAS METB)on Anion gap [Moles/Vol] 9.8 mmol/L Normal [facility] Comment on above: Performed By: #### B MP, HSTROPN ####[facility] [address]cvlzf[address] [place] [address]Dr. Airam Tripathi Calcium [Mass/Vol] 8.4 mg/dL Critically low 8.5-10.1 [facility] Comment on above: Performed By: #### B MP, HSTROPN ####[facility] Esugikqard[address] [place] [address]Dr. Airam Tripathi Chloride [Moles/Vol] 99 mmol/L Normal 98-107 [facility] Comment on above: Performed By: #### B MP, HSTROPN ####[facility] Xrwuwoxxkq15[address] [place] [address]Dr. Airam Tripathi CO2 [Moles/Vol] 28.3 mmol/L Normal 21.0-32.0 [facility] Comment on above: Performed By: #### B MP, HSTROPN ####[facility] Aiehojbepa[address] [place], [place] [address]Dr. Airam Tripathi Creatinine [Mass/Vol] 1.40 mg/dL Critically high 0.55-1.02 [facility] Comment on above: Performed By: #### B MP, HSTROPN ####[facility] [address]dqcxxnyer[address] [place], [place] [address]Dr. Airam Tripathi EGFR-AF VENEZUELAN 46 mL/min/1.73m2 Critically low >=60 [facility] Comment on above: Performed By: #### B MP, HSTROPN ####[facility] [address]xlfzsrlpm[address] [place], [place] [address]Dr. Airam Tripathi EGFR-NON AF VENEZUELAN 38 mL/min/1.73m2 Critically low >=60 [facility] Comment on above: Performed By: #### B GERTRUDE, HSTROPN ####[facility] [address]oeuuk[address] [place] [address]Dr. Airam Tripathi Glucose [Mass/Vol] 88 mg/dL Normal 74-106 [facility] Comment on above: Performed By: #### B GERTRUDE, HSTROPN ####[facility] I[address]stkwnf[address] [place] [address]Dr. Airam Tripathi Potassium [Moles/Vol] 5.1 mmol/L Normal 3.5-5.1 [facility] Comment on above: Performed By: #### B GERTRUDE, HSTROPN ####[facility] [address]qdmozi[address] [place] [address]Dr. Airam Tripathi Sodium [Moles/Vol] 132 mmol/L Critically low 136-145 Th [facility] Comment on above: Performed By: #### B GERTRUDE, HSTROPN ####[facility] W[address]wbxxlbl[address] [place] [address]Dr. Airam Tripathi Urea nitrogen [Mass/Vol] 56.0 mg/dL Critically high 7.0-18.0 [facility] Comment on above: Performed By: #### B GERTRUDE, HSTROPN ####[facility] Lvxxwxkcsf[address] [place] [address]Dr. Airam Tripathi Urea nitrogen/Creatinine [Mass ratio] 40.0 mg/mg Normal [facility] Comment on above: Performed By: #### B GERTRUDE, HSTROPN ####[facility] [address]phc[address] [place] [address]Dr. Airam Tripathi TROPONIN, HIGH SENSITIVITYon 11-16-2022 HSTROP 9.9 pg/mL Normal 4.0-51.3 [facility] Comment on above: Result Comment: CUT- OFF POINTS HAVE BEEN ESTABLISHED BASED ON THE FOURTH UNIVERSAL DEFINITIONS OF MYOCARDIALINFARCTION. THE UPPER REFERENCE LIMIT (URL) OF TROPONIN, DEFINED THE 99TH PERCENTILE OFcTnI DISTRIBUTION IN A REFERENCE POPULATION, HAS BEEN CONFIRMED THE DECISION THRESHOLDFOR HI DIAGNOSIS. Performed By: #### B MP, HSTROPN ####[facility] [address]ukoprc[address] [place] [address]Dr. Airam Tripathi XR CHEST 1 Von 11-16-2022 XR CHEST 1 V Normal [facility] CBC AUTO DIFFon 11-11-2022 BASO # 0.0 103/ul Normal 0.0-0.1 [facility] Comment on above: Performed By: #### C BC ####[facility] Zhchwedstm[address] [place], [place] [address]Dr. Airam Deuce Basophils/100 WBC (Bld) 0.4 % Normal 0.2-2.0 [facility] Comment on above: Performed By: #### C BC ####[facility] Dphaltdwau[address] [place], [place] [address]Dr. Airam Tripathi EO # 0.4 103/ul Normal 0.0-0.7 [facility] Comment on above: Performed By: #### C BC ####[facility] Keosbdzaly[address] [place], [place] [address]Dr. Airam Tripathi Eosinophils/100 WBC (Bld) 4.6 % Normal 0.9-7.0 [facility] Comment on above: Performed By: #### C BC ####[facility] Ruprxprjlw2[address] [place], [place] [address]Dr. Airam Tripathi Erythrocyte distribution width (RBC) [Ratio] 15.8 % Critically high 11.0-15.0 [facility] Comment on above: Performed By: #### C BC ####[facility] Ehvgrtpjyi[address] [place], [place] [address]Dr. Airam Tripathi Hematocrit (Bld) [Volume fraction] 30.3 % Critically low 36.0-48.0 [facility] Comment on above: Performed By: #### C BC ####[facility] Dxiqbfkopg[address] [place], [place] [address]Dr. Airam Tripathi Hemoglobin (Bld) [Mass/Vol] 9.3 g/dL Critically low 12.0-16.0 [facility] Comment on above: Performed By: #### C BC ####[facility] B[address]xlsodfg[address] [place] [id number]. Airam Tripathi IG # 0.03 10e3/ul Normal 0.00-0.03 [facility] Comment on above: Performed By: #### C BC ####[facility] Gssvpghaes[address] [place] [address]Dr. Airam Tripathi IG % 0.4 % Normal 0.0-0.5 [facility] Comment on above: Performed By: #### C BC ####[facility] Gfcfeiktjc70[address] [place] [address]Dr. Airam Deuce LYMPH # 2.0 103/ul Normal 1.2-3.8 [facility] Comment on above: Performed By: #### C BC ####[facility] Zferpvwsil6[address] [place] [address]Dr. Airam Tripathi Lymphocytes/100 WBC (Bld) 24.5 % Normal 20.5-60.0 [facility] Comment on above: Performed By: #### C BC ####[facility] P[address]wvzngjq[address] [place] [address]Dr. Selenaneil Tripathi MANUAL DIFF REQ NO Normal [facility] Comment on above: Performed By: #### C BC ####[facility] Wusbuekkvw[address] [place] [address]Dr. Airam Tripathi MCH (RBC) [Entitic mass] 28.9 pg Normal 26.7-34.0 [facility] Comment on above: Performed By: #### C BC ####[facility] Vakpkigrbc[address] [place] [address]Dr. Airam Tripathi MCHC (RBC) [Mass/Vol] 30.7 g/dL Normal 29.9-35.2 [facility] Comment on above: Performed By: #### C BC ####[facility] Ngohtwtlfn[address] [place], [place] [address]Dr. Airam Tripathi MCV (RBC) [Entitic vol] 94.1 fL Normal 81.0-99.0 [facility] Comment on above: Performed By: #### C BC ####[facility] Gxdwyxpisr[address] [place] [id number]. Airam Tripathi MONO # 0.7 103/ul Normal 0.3-0.8 [facility] Comment on above: Performed By: #### C BC ####[facility] Mittwzlabr4[address] [place] [address]Dr. Airam Tripathi Monocytes/100 WBC (Bld) 8.3 % Normal 1.7-12.0 [facility] Comment on above: Performed By: #### C BC ####[facility] Ywniecqiar25[address] [place], [place] [address]Dr. Airam Tripathi NEUT # 5.0 103/ul Normal 1.4-6.5 [facility] Comment on above: Performed By: #### C BC ####[facility] Mpigwjwhem0756[address] [place], [place] [address]Dr. Airam Deuce Neutrophils/100 WBC (Bld) 61.8 % Normal 43.0-75.0 [facility] Comment on above: Performed By: #### C BC ####[facility] Bwclkugahc[address] [place], [place] [address]Dr. Airam Tripathi Platelet mean volume (Bld) [Entitic vol] 9.4 fL Critically low 9.5-13.5 [facility] Comment on above: Performed By: #### C BC ####[facility] Vfegwujodq[address] [place] [address]Dr. Airam Deuce PLT 270 103/ul Normal 150-450 [facility] Comment on above: Performed By: #### C BC ####[facility] Fbzgwtiqld217[address] [place], [place] [address]Dr. Airam Deuce RBC 3.22 106/ul Critically low 4.20-5.40 [facility] Comment on above: Performed By: #### C BC ####[facility] Em[address]jzbqxn[address] [place], [place] [id number]. Airam Deuce WBC 8.1 103/ul Normal 4.0-11.0 [facility] Comment on above: Performed By: #### C BC ####[facility] Glftuhurts4[address] [place], [place] [address]Dr. Airam Tripathi PROF 14(COMP METB)on 023 Albumin [Mass/Vol] 3.2 g/dL Critically low 3.4-5.0 Th [facility] Comment on above: Performed By: #### C MP ####[facility] Qihhkcixmw[address] [place], [place] [address]Dr. Airam Tripathi Albumin/Globulin [Mass ratio] 1.0 {ratio} Normal [facility] Comment on above: Performed By: #### C MP ####[facility] Sgjejmtyei[address] [place], [place] [address]Dr. Airam Tripathi ALP [Catalytic activity/Vol] 108 U/L Normal 46-116 [facility] Comment on above: Performed By: #### C MP ####[facility] Nfzulsstdk4255[address] [place], [place] [address]Dr. Airam Tripathi ALT [Catalytic activity/Vol] 30 U/L Normal 14-59 [facility] Comment on above: Performed By: #### C MP ####[facility] F[address]xfppfqmv[address] [place], [place] [address]Dr. Airam Tripathi Anion gap [Moles/Vol] 12.8 mmol/L Normal Th [facility] Comment on above: Performed By: #### C MP ####[facility] Czgdimqfms96[address] [place], [place] [address]Dr. Airam Tripathi AST [Catalytic activity/Vol] 33 U/L Normal 15-37 [facility] Comment on above: Performed By: #### C MP ####[facility] Zvspmbyoka02[address] [place], [place] [address]DrKianna Tripathi Bilirubin [Mass/Vol] 0.2 mg/dL Normal 0.2-1.0 [facility] Comment on above: Performed By: #### C MP ####[facility] Eicpyuxosx90[address] [place], [place] [address]DrKianna Tripathi Calcium [Mass/Vol] 8.3 mg/dL Critically low 8.5-10.1 Th [facility] Comment on above: Performed By: #### C MP ####[facility] Llzhrttenc[address] [place], [place] [address]Dr. Airam Tripathi Chloride [Moles/Vol] 99 mmol/L Normal 98-107 [facility] Comment on above: Performed By: #### C MP ####[facility] Mvwtbboqpy26[address] [place] [address]Dr. Airam Tripathi CO2 [Moles/Vol] 27.6 mmol/L Normal 21.0-32.0 [facility] Comment on above: Performed By: #### C MP ####[facility] Cqdayezbgg6[address] [place], [place] [address]Dr. Airam Deuce Creatinine [Mass/Vol] 2.01 mg/dL Critically high 0.55-1.02 [facility] Comment on above: Performed By: #### C MP ####[facility] Fbhbmtacbk[address] [place], [place] [address]Dr. Airam Tripathi EGFR-AF VENEZUELAN 31 mL/min/1.73m2 Critically low >=60 [facility] Comment on above: Performed By: #### C MP ####[facility] Uemavqewgh[address] [place], [place] [address]Dr. Airam Deuce EGFR-NON AF VENEZUELAN 25 mL/min/1.73m2 Critically low >=60 [facility] Comment on above: Performed By: #### C MP ####[facility] Jyipnxwgao[address] [place], [place] [address]Dr. Airam Tripathi Globulin (S) [Mass/Vol] 3.2 g/dL Normal [facility] Comment on above: Performed By: #### C MP ####[facility] Okdnsbilxc65[address] [place], [place] [address]Dr. Airam Tripathi Glucose [Mass/Vol] 158 mg/dL Critically high 74-106 T [facility] Comment on above: Performed By: #### C MP ####[facility] Qexznrbufm[address] [place], [place] [address]Dr. Airam Tripathi Potassium [Moles/Vol] 5.4 mmol/L Critically high 3.5-5.1 [facility] Comment on above: Performed By: #### C MP ####[facility] Sennupxlzq[address] [place], [place] [address]Dr. Airam Tripathi Protein [Mass/Vol] 6.4 g/dL Normal 6.4-8.2 [facility] Comment on above: Performed By: #### C MP ####[facility] [address]uf[address] [place], [place] [address]Ck. Airam Tripathi Sodium [Moles/Vol] 134 mmol/L Critically low 136-145 Th [facility] Comment on above: Performed By: #### C MP ####[facility] F[address]xauvrdf[address] [place] [id number]. Airam Tripathi Urea nitrogen [Mass/Vol] 52.0 mg/dL Critically high 7.0-18.0 [facility] Comment on above: Performed By: #### C MP ####[facility] L[address]clrqmna[address] [place] [id number]. Airam Tripathi Urea nitrogen/Creatinine [Mass ratio] 25.9 mg/mg Normal [facility] Comment on above: Performed By: #### C MP ####[facility] Yfpfqcipnw[address] [place] [id number]. Airam Tripathi HPon 11-07-2022 [facility] Cardiology - [facility] Subjective Mabel Moser is a 62 y.o. year old female patient being seen for 2 week follow up per Sofie Bernard CNP. She says since she was last seen on 10/28, Dr. Santana increased her Entresto to 97-103mg bid, metoprolol to 50mg TID, and hydralazine to 100mg TID. Says she was in [facility] again last Monday with a BP of 214/127. 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 Fluid overload Dehydration Cortical age-related cataract of left eye COVID-19 Displacement of lumbar intervertebral disc without myelopathy Edema of lower extremity Edema Orthopnea Dyspnea Endogenous obesity Essential tremor Acute on chronic diastolic heart failure (CMS/HCC) H/O gastric bypass Gouty arthropathy Gastroesophageal reflux disease Full thickness rotator cuff tear Fibromyalgia Low back pain Hip pain Hyperparathyroidism due to renal insufficiency (CMS/HCC) Hypocalcemia Hypertensive disorder Hypoglycemia Hyponatremia Hypothyroidism Impingement syndrome of shoulder region Insomnia Anemia due to vitamin B12 deficiency Pulmonary hypertension (CMS/HCC) Other fatigue Osteoarthritis of knee Morbid (severe) obesity due to excess calories (CMS/HCC) Left atrial enlargement Lumbosacral neuritis Lumbosacral spondylosis without myelopathy Intractable migraine without status migrainosus Migraine Rheumatic tricuspid valve regurgitation No family history on file. Social History Tobacco Use Smoking status: Never Smokeless tobacco: Never Substance Use Topics Alcohol use: Not Currently Drug use: Not Currently HPI Mabel is seen in follow-up. I had seen her in the past for pulmonary hypertension. She is a 62-year-old woman with prior history of obesity status post bariatric surgery in 1999. In the past she was admitted to [facility] in 2019 with fluid overload and responded to diuresis. Prior evaluation included cardiac catheterization in 2015 that showed mild coronary artery disease with mildly elevated right-sided pressures and wedge pressure. She had normal ventricular function by echocardiography. Pulmonary VQ scan was negative for pulmonary embolism. She has not was seen most recently in our office on 10/28/2022 and she was having headache and recent echocardiogram had shown severely elevated right-sided pressures and her blood work showed acute renal insufficiency. She was sent to the emergency room. Her blood pressure and pain both improved. CT scan of the head was negative. Chest x-ray was negative. She was discharged from the emergency room. She is currently taking bumetanide 1 mg 3 times daily, spironolactone 100 mg daily, Entresto 97-103 mg twice daily, metoprolol tartrate 50 mg 3 times daily and hydralazine 100 mg 3 times daily She reports that she has gained weight recently. In addition she has shortness of breath on exertion, NYHA class II-III and bilateral lower extremity swelling. She is taking diuretics as prescribed. Review of Systems Constitutional: Positive for malaise/fatigue and weight gain (10# since 10/10/22). Cardiovascular: Positive for dyspnea on exertion, leg swelling and palpitations. Musculoskeletal: Positive for arthritis, back pain and joint pain. Neurological: Positive for headaches and light-headedness. All other systems reviewed and are negative. Objective Visit Vitals BP 135/67 (BP Location: Right arm, Patient Position: Sitting) Pulse 66 Ht 1.575 m (5' 2 ) Wt 82.6 kg (182 lb) SpO2 99% BMI 33.29 kg/m??? Smoking Status Never BSA 1.9 m??? Physical Exam Constitutional: Appearance: She is well-developed. She is obese. She is not ill-appearing. HENT: Head: Normocephalic and atraumatic. Nose: Nose normal. Eyes: General: No scleral icterus. Pupils: Pupils are equal, round, and reactive to light. Neck: Thyroid: No thyromegaly. Vascular: No JVD. Cardiovascular: Rate and Rhythm: Normal rate and regular rhythm. Pulses: Radial pulses are 2+ on the right side and 2+ on the left side. Heart sounds: Murmur heard. Systolic (LLSB) murmur is present with a grade of 2/6. No friction rub. No gallop. Pulmonary: Effort: Pulmonary effort is normal. No respiratory distress. Breath sounds: Normal breath sounds. No wheezing or rales. Chest: Chest wall: No tenderness. Abdominal: General: Bowel sounds are normal. There is no distension. Pal (more content not included)... Normal [facility] Office Visiton 11-07-2022 Follow-up visit [id number] Loren Moser 1960 F Date Provider Department Center 11/07/2022 BENJIE LERMA [facility] No family history on file Level of Service:26346 [place] OFFICE/OUTPATIENT ESTABLISHED MOD MDM 30-39 MIN Normal [facility] OSMOLALITYon 11-06-2022 Osmolality [Osmolality] 261 mosm/kg Critically low 275-295 [facility] Comment on above: Performed By: #### [facility] ####[facility] [address] [place], [place] [address]Bc. Airam Tripathi XR HIPS GUMARO 3_4V WO PELVISon 11-04-2022 XR HIPS GUMARO 3_4V WO PELVIS Normal [facility] XR KNEE LT 4V or >on 023 XR KNEE LT 4V or > Normal [facility] BNPon 11-03-2022 Natriuretic peptide B (Bld) [Mass/Vol] 1168.0 pg/mL Critically high <=900.0 [facility] Comment on above: Performed By: #### B UNION CARP[employer], BMP ####[facility] [address] [place], [place] [address]Dr. Airam Deuce CBC AUTO DIFFon 11-03-2022 BASO # 0.0 103/ul Normal 0.0-0.1 [facility] Comment on above: Performed By: #### C BC ####[facility] [address] [place], [place] [address]Dr. Airam Tripathi Basophils/100 WBC (Bld) 0.3 % Normal 0.2-2.0 [facility] Comment on above: Performed By: #### C BC ####[facility] Apl[address] [place], [place] [address]Dr. Airam Tripathi EO # 0.2 103/ul Normal 0.0-0.7 [facility] Comment on above: Performed By: #### C BC ####[facility] [address] [place], [place] [address]Dr. Airam Tripathi Eosinophils/100 WBC (Bld) 1.9 % Normal 0.9-7.0 [facility] Comment on above: Performed By: #### C BC ####[facility] [address] [place], [place] [address]Dr. Airam Tripathi Erythrocyte distribution width (RBC) [Ratio] 15.2 % Critically high 11.0-15.0 [facility] Comment on above: Performed By: #### C BC ####[facility] [address] [place], [place] [address]Dr. Airam Tripathi Hematocrit (Bld) [Volume fraction] 34.3 % Critically low 36.0-48.0 [facility] Comment on above: Performed By: #### C BC ####[facility] [address] [place], [place] [address]Dr. Airam Tripathi Hemoglobin (Bld) [Mass/Vol] 11.0 g/dL Critically low 12.0-16.0 [facility] Comment on above: Performed By: #### C BC ####[facility] [address] [place] [id number]. Airam Tripathi IG # 0.06 10e3/ul Critically high 0.00-0.03 [facility] Comment on above: Performed By: #### C BC ####[facility] [address] [place] [id number]. Airam Deuce IG % 0.5 % Normal 0.0-0.5 [facility] Comment on above: Performed By: #### C BC ####[facility] [address] [place] [address]Dr. Airam Deuce LYMPH # 2.3 103/ul Normal 1.2-3.8 [facility] Comment on above: Performed By: #### C BC ####[facility] [address] [place] [address]DrKianna Tripathi Lymphocytes/100 WBC (Bld) 20.4 % Critically low 20.5-60.0 [facility] Comment on above: Performed By: #### C BC ####[facility] [address] [place] [address]DrKianna Selenaneil Tripathi MANUAL DIFF REQ NO Normal [facility] Comment on above: Performed By: #### C BC ####[facility] [address] [place] [phone]. Airam Deuce MCH (RBC) [Entitic mass] 28.7 pg Normal 26.7-34.0 [facility] Comment on above: Performed By: #### C BC ####[facility] [address] [place] [id number]. Airam Deuce MCHC (RBC) [Mass/Vol] 32.1 g/dL Normal 29.9-35.2 [facility] Comment on above: Performed By: #### C BC ####[facility] [address] [place] [phone]. Airam Deuce MCV (RBC) [Entitic vol] 89.6 fL Normal 81.0-99.0 [facility] Comment on above: Performed By: #### C BC ####[facility] [address] [place] [id number]. Airam Tripathi MONO # 0.9 103/ul Critically high 0.3-0.8 [facility] Comment on above: Performed By: #### C BC ####[facility] [address] [place] [id number]. Airam Tripathi Monocytes/100 WBC (Bld) 8.3 % Normal 1.7-12.0 [facility] Comment on above: Performed By: #### C BC ####[facility] [address] [place] [phone]. Airam Tripathi NEUT # 7.8 103/ul Critically high 1.4-6.5 [facility] Comment on above: Performed By: #### C BC ####[facility] [address] [place], [place] [address]Dr. Airam Tripathi Neutrophils/100 WBC (Bld) 68.6 % Normal 43.0-75.0 [facility] Comment on above: Performed By: #### C BC ####[facility] [address]fs[address] [place] [id number]. Airam Tripathi Platelet mean volume (Bld) [Entitic vol] 8.9 fL Critically low 9.5-13.5 [facility] Comment on above: Performed By: #### C BC ####[facility] [address] [place] [phone]. Airam Tripathi PLT 323 103/ul Normal 150-450 [facility] Comment on above: Performed By: #### C BC ####[facility] Gl[address] [place], [place] [address]Dr. Airam Tripathi RBC 3.83 106/ul Critically low 4.20-5.40 [facility] Comment on above: Performed By: #### C BC ####[facility] [address] [place] [phone]. Airam Tripathi WBC 11.4 103/ul Critically high 4.0-11.0 [facility] Comment on above: Performed By: #### C BC ####[facility] [address] [place] [phone]. Airam Tripathi BASO # 0.0 103/ul Normal 0.0-0.1 [facility] Comment on above: Performed By: #### C BC ####[facility] [address]xsc[address] [place] [phone]. Airam Tripathi Basophils/100 WBC (Bld) 0.2 % Normal 0.2-2.0 [facility] Comment on above: Performed By: #### C BC ####[facility] [address]so[address] [place], [place] [address]Dr. Airam Tripathi EO # 0.1 103/ul Normal 0.0-0.7 [facility] Comment on above: Performed By: #### C BC ####[facility] [address] [place], [place] [address]Dr. Airam Tripathi Eosinophils/100 WBC (Bld) 0.7 % Critically low 0.9-7.0 [facility] Comment on above: Performed By: #### C BC ####[facility] [address] [place], [place] [address]Dr. Airam Tripathi Erythrocyte distribution width (RBC) [Ratio] 15.4 % Critically high 11.0-15.0 [facility] Comment on above: Performed By: #### C BC ####[facility] [address]nf[address] [place], [place] [id number]. Airam Tripathi Hematocrit (Bld) [Volume fraction] 33.6 % Critically low 36.0-48.0 [facility] Comment on above: Performed By: #### C BC ####[facility] [address]af[address] [place], [place] [address]Dr. Airam Tripathi Hemoglobin (Bld) [Mass/Vol] 10.9 g/dL Critically low 12.0-16.0 [facility] Comment on above: Performed By: #### C BC ####[facility] [address]sh[address] [place], [place] [address]Dr. Airam Tripathi IG # 0.04 10e3/ul Critically high 0.00-0.03 [facility] Comment on above: Performed By: #### C BC ####[facility] [address] [place] [id number]. Airam Tripathi IG % 0.5 % Normal 0.0-0.5 [facility] Comment on above: Performed By: #### C BC ####[facility] [address]zsythw[address] [place] [phone]. Airam Tripathi LYMPH # 1.1 103/ul Critically low 1.2-3.8 [facility] Comment on above: Performed By: #### C BC ####[facility] [address] [place] [address]Dr. Airam Tripathi Lymphocytes/100 WBC (Bld) 13.3 % Critically low 20.5-60.0 [facility] Comment on above: Performed By: #### C BC ####[facility] [address] [place] [address]Dr. Airam Tripathi MANUAL DIFF REQ NO Normal [facility] Comment on above: Performed By: #### C BC ####[facility] [address]qsmka[address] [place] [phone]. Airam Tripathi MCH (RBC) [Entitic mass] 29.1 pg Normal 26.7-34.0 [facility] Comment on above: Performed By: #### C BC ####[facility] [address] [place] [phone]. Airam Tripathi MCHC (RBC) [Mass/Vol] 32.4 g/dL Normal 29.9-35.2 [facility] Comment on above: Performed By: #### C BC ####[facility] [address] [place] [phone]. Airam Tripathi MCV (RBC) [Entitic vol] 89.6 fL Normal 81.0-99.0 [facility] Comment on above: Performed By: #### C BC ####[facility] [address] [place], [place] [address]Dr. Airam Deuce MONO # 0.5 103/ul Normal 0.3-0.8 [facility] Comment on above: Performed By: #### C BC ####[facility] [address] [place] [phone]. Airam Tripathi Monocytes/100 WBC (Bld) 6.4 % Normal 1.7-12.0 [facility] Comment on above: Performed By: #### C BC ####[facility] [address] [place] [phone]. Airam Tripathi NEUT # 6.5 103/ul Normal 1.4-6.5 [facility] Comment on above: Performed By: #### C BC ####[facility] [address]ccde[address] [place] [phone]. Airam Tripathi Neutrophils/100 WBC (Bld) 78.9 % Critically high 43.0-75.0 [facility] Comment on above: Performed By: #### C BC ####[facility] [address] [place] [address]Dr. Airam Tripathi Platelet mean volume (Bld) [Entitic vol] 9.4 fL Critically low 9.5-13.5 [facility] Comment on above: Performed By: #### C BC ####[facility] [address]xy[address] [place] [address]Dr. Airam Tripathi PLT 314 103/ul Normal 150-450 [facility] Comment on above: Performed By: #### C BC ####[facility] [address] [place] [address]Dr. Airam Tripathi RBC 3.75 106/ul Critically low 4.20-5.40 [facility] Comment on above: Performed By: #### C BC ####[facility] [address]jyeujnbpw[address] [place] [phone]. Airam Tripathi WBC 8.3 103/ul Normal 4.0-11.0 [facility] Comment on above: Performed By: #### C BC ####[facility] [address]qiff[address]ua[address] [place] [address]Dr. Airam Tripathi CT HEAD WO CONon 11-03-2022 CT HEAD WO CON Normal [facility] PROF 14(COMP METB)on 023 Albumin [Mass/Vol] 3.2 g/dL Critically low 3.4-5.0 [facility] Comment on above: Performed By: #### C MP ####[facility] [address]je[address] [place] [address]Dr. Selenaneil Deuce Albumin/Globulin [Mass ratio] 0.9 {ratio} Normal [facility] Comment on above: Performed By: #### C MP ####[facility] [address] [place] [address]Dr. Airam Tripathi ALP [Catalytic activity/Vol] 109 U/L Normal 46-116 [facility] Comment on above: Performed By: #### C MP ####[facility] [address] [place], [place] [address]Dr. Airam Tripathi ALT [Catalytic activity/Vol] 25 U/L Normal 14-59 [facility] Comment on above: Performed By: #### C MP ####[facility] [address] [place], [place] [address]Dr. Airam Tripathi Anion gap [Moles/Vol] 10.9 mmol/L Normal [facility] Comment on above: Performed By: #### C MP ####[facility] [address]ul[address] [place], [place] [address]Dr. Airam Tripathi AST [Catalytic activity/Vol] 24 U/L Normal 15-37 [facility] Comment on above: Performed By: #### C MP ####[facility] Hbvqnaogbo[address] [place], [place] [address]Dr. Airam Tripathi Bilirubin [Mass/Vol] 0.3 mg/dL Normal 0.2-1.0 [facility] Comment on above: Performed By: #### C MP ####[facility] [address]ipvqxf[address] [place], [place] [address]Dr. Airam Tripathi Calcium [Mass/Vol] 8.6 mg/dL Normal 8.5-10.1 [facility] Comment on above: Performed By: #### C MP ####[facility] [address]pgw[address] [place] [address]Dr. Airam Tripathi Chloride [Moles/Vol] 95 mmol/L Critically low 98-107 [facility] Comment on above: Performed By: #### C MP ####[facility] K[address]fh[address]z19[address] [place] [phone]. Airam Tripathi CO2 [Moles/Vol] 27.8 mmol/L Normal 21.0-32.0 [facility] Comment on above: Performed By: #### C MP ####[facility] [address]mqupb[address] [place] [address]Dr. Airam Tripathi Creatinine [Mass/Vol] 1.07 mg/dL Critically high 0.55-1.02 [facility] Comment on above: Performed By: #### C MP ####[facility] [address]xtsj[address] [place] [address]Dr. Airam Tripathi EGFR-AF VENEZUELAN >60 Normal >=60 [facility] Comment on above: Performed By: #### C MP ####[facility] [address]knpd[address] [place] [address]Dr. Airam Deuce EGFR-NON AF VENEZUELAN 52 mL/min/1.73m2 Critically low >=60 [facility] Comment on above: Performed By: #### C MP ####[facility] [address]im[address]puqhp[address] [place] [address]Dr. Airam Tripathi Globulin (S) [Mass/Vol] 3.5 g/dL Normal [facility] Comment on above: Performed By: #### C MP ####[facility] Bjvsgtjofj66[address] [place] [address]Dr. Airam Deuce Glucose [Mass/Vol] 86 mg/dL Normal 74-106 [facility] Comment on above: Performed By: #### C MP ####[facility] [address]iahgkqv[address] [place] [phone]. Airam Tripathi Potassium [Moles/Vol] 4.7 mmol/L Normal 3.5-5.1 [facility] Comment on above: Performed By: #### C MP ####[facility] [address]bowpum[address] [place] [address]Dr. Airam Tripathi Protein [Mass/Vol] 6.7 g/dL Normal 6.4-8.2 [facility] Comment on above: Performed By: #### C MP ####[facility] Ncjasydflm64[address] [place] [address]Dr. Airam Tripathi Sodium [Moles/Vol] 129 mmol/L Critically low 136-145 [facility] Comment on above: Performed By: #### C MP ####[facility] [address]zhqby[address] [place], [place] [address]Dr. Selenaneil Deuce Urea nitrogen [Mass/Vol] 19.0 mg/dL Critically high 7.0-18.0 [facility] Comment on above: Performed By: #### C MP ####[facility] [address]uqucefe[address] [place], [place] [address]Dr. Airam Tripathi Urea nitrogen/Creatinine [Mass ratio] 17.8 mg/mg Normal [facility] Comment on above: Performed By: #### C MP ####[facility] [address]dmxquewji[address] [place], [place] [address]Dr. Airam Tripathi PROF CHEM 8 (BAS METB)on Anion gap [Moles/Vol] 9.0 mmol/L Normal [facility] Comment on above: Performed By: #### B UNION CARPENTER, BMP ####[facility] Butjkiofkc[address] [place], [place] [address]Dr. Airam Tripathi Calcium [Mass/Vol] 8.5 mg/dL Normal 8.5-10.1 [facility] Comment on above: Performed By: #### B UNION CARPENTER, BMP ####[facility] [address]vvxdundne[address] [place], [place] [address]Dr. Airam Tripathi Chloride [Moles/Vol] 93 mmol/L Critically low 98-107 [facility] Comment on above: Performed By: #### B UNION CARPENTER, BMP ####[facility] [address]qgiopotl[address] [place], [place] [address]Dr. Airam Tripathi CO2 [Moles/Vol] 28.1 mmol/L Normal 21.0-32.0 [facility] Comment on above: Performed By: #### B UNION CARPENTER, BMP ####[facility] [address]vryartgle[address] [place], [place] [address]Dr. Airam Tripathi Creatinine [Mass/Vol] 1.17 mg/dL Critically high 0.55-1.02 [facility] Comment on above: Performed By: #### B UNION CARPENTER, BMP ####[facility] [address]wh[address]mvl[address] [place], [place] [address]Dr. Airam Tripathi EGFR-AF VENEZUELAN 57 mL/min/1.73m2 Critically low >=60 [facility] Comment on above: Performed By: #### B UNION CARPENTER, BMP ####[facility] [address]hjsndg[address] [place], [place] [address]Dr. Airam Tripathi EGFR-NON AF VENEZUELAN 47 mL/min/1.73m2 Critically low >=60 [facility] Comment on above: Performed By: #### B UNION CARPENTER, BMP ####[facility] [address]nxxecrsf[address] [place], [place] [address]Dr. Selenaneil Tripathi Glucose [Mass/Vol] 107 mg/dL Critically high 74-106 T [facility] Comment on above: Performed By: #### B UNION CARPENTER, BMP ####[facility] Z[address]pxaslqh[address] [place], [place] [address]Dr. Selenaneil Tripathi Potassium [Moles/Vol] 4.1 mmol/L Normal 3.5-5.1 [facility] Comment on above: Performed By: #### B UNION CARPENTER, BMP ####[facility] [address]jckgim[address] [place], [place] [address]Dr. Airam Tripathi Sodium [Moles/Vol] 126 mmol/L Critically low 136-145 [facility] Comment on above: Performed By: #### B UNION CARPENTER, BMP ####[facility] [address]ffqvmgod[address] [place], [place] [address]Dr. Airam Tripathi Urea nitrogen [Mass/Vol] 20.0 mg/dL Critically high 7.0-18.0 [facility] Comment on above: Performed By: #### B UNION CARPENTER, BMP ####[facility] [address]uzuab[address] [place], [place] [address]Dr. Selenaneil Tripathi Urea nitrogen/Creatinine [Mass ratio] 17.1 mg/mg Normal [facility] Comment on above: Performed By: #### B UNION CARPENTER, BMP ####[facility] [address] [place] [id number]. Airam Tripathi XR CHEST 1 Von 11-03-2022 XR CHEST 1 V Normal [facility] Activated partial thrombopla stin time (aPTT) in platelet poor plasma by coagulation aOrdered By: Favian Helm on 10-28-2022 aPTT Coag (PPP) [Time] 31.7 s 25.1-36.5 [facility] Alanine aminotransferase [En zymatic activity/volume] in Serum or PlasmaOrdered By: Favian Helm on 10-28-2022 ALT [Catalytic activity/Vol] 14 U/L 7-52 [facility] Albumin [Mass/volume] in Ser um or Plasma by Bromocresol green (BCG) dye binding methoOrdered By: Favian Helm on 10-28-2022 Albumin BCG dye [Mass/Vol] 3.6 g/dL 3.5-5.7 [facility] Alkaline phosphatase [Enzyma tic activity/volume] in Serum or PlasmaOrdered By: Favian Helm on 10-28-2022 ALP [Catalytic activity/Vol] 84 U/L 34-104 [facility] Aspartate aminotransferase [ Enzymatic activity/volume] in Serum or PlasmaOrdered By: Favian Helm on 10-28-2022 AST [Catalytic activity/Vol] 21 U/L 13-39 [facility] B-Type Natriuretic Peptideon 10-28-2022 Natriuretic peptide B (Bld) [Mass/Vol] 551.0 pg/mL High 5-100 [facility] Comment on above: Result Comment: PERF ORMED BY: [place] [address] PATHOLOGIST [employer]AIR CAR DRIVER TANNER GAVIN M.D. Performed By: #### P T, CBC, PTT, CK, HS TROP, BNP, CMP, MG #### [address] Basophils Auto (Bld) [#/Vol] Ordered By: Favian Helm on 10-28-2022 Basophils (Bld) [#/Vol] 0.0 10*3/uL 0.0-0.2 [facility] Basophils/100 WBC Auto (Bld) Ordered By: Favian Helm on 10-28-2022 Basophils/100 WBC (Bld) 0.4 % . [facility] Bilirubin.total [Mass/volume ] in Serum or PlasmaOrdered By: Favian Helm on 10-28-2022 Bilirubin [Mass/Vol] 0.3 mg/dL 0.3-1.0 [facility] CT head/brain wo conon 10-28 CT head/brain wo con [facility] [place] [address] CT Scan Report Signed Patient: Mabel Moser MR#: [id number] : 1960 Acct:[id number] Age/Sex: 62 / F ADM Date: 10/28/22 Loc: ER Room: Type: [facility] ER Attending Dr: Copies to: Favian Helm PA-C Ordering Provider: Favian Helm PA-C Date of Service: 10/28/22 CT/CT head/brain wo con: worst headache ever Unenhanced head CT TECHNIQUE: Contiguous axial imaging of the head. The CT exam was performed using one or more the following dose reduction techniques: Automated exposure control, adjustment of the MA and/or Kv according to patient size, or use of the iterative reconstruction technique. COMPARISON: 08/31/2018 HISTORY: Worst headache of life. Elevated blood pressure. History of atrial fibrillation. VENTRICLES: Within normal limits ATROPHY: Mild atrophy BRAIN PARENCHYMA: Decreased density of the white matter is most consistent with chronic small vessel disease. HEMORRHAGE: None HERNIATION: No mass effect or herniation INFARCTION: No recent vascular distribution infarction is seen. EXTRA-AXIAL FLUID COLLECTIONS None MIDBRAIN: Unremarkable KRIS: Unremarkable MEDULLA: Unremarkable SINUSES: Unremarkable ORBITS: Grossly unremarkable MASTOIDS: Unremarkable BONY STRUCTURES Intact ADDITIONAL FINDINGS: CT/CT head/brain wo con IMPRESSION: No acute findings. Diffuse atrophy and chronic small vessel ischemic changes. Impression dictated by: Baljinder Ball M.D.10/28/2022 7:46 PM Dictation Location: [place] [address] Transcribed By: [facility] 10/28/221945 Dictated By: Baljinder Ball DO 10/28/221934 Signed By: 10/28/221945 Normal [facility] Calcium [Mass/volume] in Ser um or PlasmaOrdered By: Favian Helm on 10-28-2022 Calcium [Mass/Vol] 8.2 mg/dL 8.6-10.3 [facility] Carbon dioxide, total [Moles /volume] in Serum or PlasmaOrdered By: Favian Helm on 10-28-2022 CO2 [Moles/Vol] 25.7 mmol/L 21.0-31.0 [facility] Chloride [Moles/volume] in S andrea or PlasmaOrdered By: Favian Helm on 10-28-2022 Chloride [Moles/Vol] 98 mmol/L 98-107 [facility] Complete Blood Count Auto Di ffon 10-28-2022 Basophils (Bld) [#/Vol] 0.0 10*3/uL Normal 0.0-0.2 [facility] Comment on above: Result Comment: PERF ORMED BY: [place] [address] PATHOLOGIST [employer]IVER TANNER GAVIN M.D. Performed By: #### P T, CBC, PTT, CK, HS TROP, BNP, CMP, MG #### [address] Basophils/100 WBC (Bld) 0.4 % Normal . [facility] Comment on above: Performed By: #### P T, CBC, PTT, CK, HS TROP, BNP, CMP, MG #### [address] Eosinophils (Bld) [#/Vol] 0.1 10*3/uL Normal 0.0-0.45 [facility] Comment on above: Performed By: #### P T, CBC, PTT, CK, HS TROP, BNP, CMP, MG #### [facility] [address] Eosinophils/100 WBC (Bld) 1.0 % Normal . [facility] Comment on above: Performed By: #### P T, CBC, PTT, CK, HS TROP, BNP, CMP, MG #### [address] Erythrocyte distribution width (RBC) [Ratio] 16.5 % High 11.9-15.3 [facility] Comment on above: Performed By: #### P T, CBC, PTT, CK, HS TROP, BNP, CMP, MG #### [address] Hematocrit (Bld) [Volume fraction] 29.9 % Low 34.0-46.4 [facility] Comment on above: Performed By: #### P T, CBC, PTT, CK, HS TROP, BNP, CMP, MG #### [address] Hemoglobin (Bld) [Mass/Vol] 9.6 g/dL Low 11.8-15.4 [facility] Comment on above: Performed By: #### P T, CBC, PTT, CK, HS TROP, BNP, CMP, MG #### [address] Lymphocytes (Bld) [#/Vol] 0.8 10*3/uL Low 1.00-4.8 [facility] Comment on above: Performed By: #### P T, CBC, PTT, CK, HS TROP, BNP, CMP, MG #### [address] Lymphocytes/100 WBC (Bld) 12.8 % Normal . [facility] Comment on above: Performed By: #### P T, CBC, PTT, CK, HS TROP, BNP, CMP, MG #### [address] MCH (RBC) [Entitic mass] 28.3 pg Normal 24.7-34.3 [facility] Comment on above: Performed By: #### P T, CBC, PTT, CK, HS TROP, BNP, CMP, MG #### [address] MCV (RBC) [Entitic vol] 88.3 fL Normal 80-100 [facility] Comment on above: Performed By: #### P T, CBC, PTT, CK, HS TROP, BNP, CMP, MG #### [address] Mean Corpuscular HGB Conc 32.0 g/dL Normal 32.0-35.0 [facility] Comment on above: Performed By: #### P T, CBC, PTT, CK, HS TROP, BNP, CMP, MG #### [address] Monocytes (Bld) [#/Vol] 0.2 10*3/uL Normal 0.0-0.8 [facility] Comment on above: Performed By: #### P T, CBC, PTT, CK, HS TROP, BNP, CMP, MG #### [address] Monocytes/100 WBC (Bld) 17.29 % Normal 0.00-20.00 [facility] Comment on above: Performed By: #### P T, CBC, PTT, CK, HS TROP, BNP, CMP, MG #### [address] Monocytes/100 WBC (Bld) 2.5 % Normal . [facility] Comment on above: Performed By: #### P T, CBC, PTT, CK, HS TROP, BNP, CMP, MG #### [address] Neutrophils (Bld) [#/Vol] 5.5 10*3/uL Normal 1.8-7.7 [facility] Comment on above: Performed By: #### P T, CBC, PTT, CK, HS TROP, BNP, CMP, MG #### [address] Neutrophils/100 WBC (Bld) 83.3 % Normal . [facility] Comment on above: Performed By: #### P T, CBC, PTT, CK, HS TROP, BNP, CMP, MG #### [address] NRBC% 0.0 /100{WBC} Normal 0-0.5 [facility] Comment on above: Performed By: #### P T, CBC, PTT, CK, HS TROP, BNP, CMP, MG #### [address] Platelet mean volume (Bld) [Entitic vol] 7.3 fL Normal 6.3-10.7 [facility] Comment on above: Performed By: #### P T, CBC, PTT, CK, HS TROP, BNP, CMP, MG #### [address] Platelets (Bld) [#/Vol] 260 10*3/uL Normal 150-450 [facility] Comment on above: Performed By: #### P T, CBC, PTT, CK, HS TROP, BNP, CMP, MG #### [address] RBC (Bld) [#/Vol] 3.38 10*6/uL Low 3.60-5.00 [facility] Comment on above: Performed By: #### P T, CBC, PTT, CK, HS TROP, BNP, CMP, MG #### [address] WBC (Bld) [#/Vol] 6.6 10*3/uL Normal 3.8-11.6 [facility] Comment on above: Performed By: #### P T, CBC, PTT, CK, HS TROP, BNP, CMP, MG #### [address] Comprehensive Metabolic Pane elena 10-28-2022 Albumin [Mass/Vol] 3.6 g/dL Normal 3.5-5.7 [facility] Comment on above: Performed By: #### P T, CBC, PTT, CK, HS TROP, BNP, CMP, MG #### [address] Albumin/Globulin [Mass ratio] 1.6 {ratio} Normal [facility] Comment on above: Performed By: #### P T, CBC, PTT, CK, HS TROP, BNP, CMP, MG #### [place] [id number] [place] ALP [Catalytic activity/Vol] 84 U/L Normal 34-104 [facility] Comment on above: Performed By: #### P T, CBC, PTT, CK, HS TROP, BNP, CMP, MG #### [address] ALT [Catalytic activity/Vol] 14 U/L Normal 7-52 [facility] Comment on above: Performed By: #### P T, CBC, PTT, CK, HS TROP, BNP, CMP, MG #### [address] Anion gap [Moles/Vol] 10.0 mmol/L Normal 6.0-15.0 [facility] Comment on above: Performed By: #### P T, CBC, PTT, CK, HS TROP, BNP, CMP, MG #### [address] AST [Catalytic activity/Vol] 21 U/L Normal 13-39 [facility] Comment on above: Performed By: #### P T, CBC, PTT, CK, HS TROP, BNP, CMP, MG #### [facility] [address] [place] [address] Bilirubin [Mass/Vol] 0.3 mg/dL Normal 0.3-1.0 [facility] Comment on above: Performed By: #### P T, CBC, PTT, CK, HS TROP, BNP, CMP, MG #### [facility] [address] [place] [address] Calcium [Mass/Vol] 8.2 mg/dL Low 8.6-10.3 [facility] Comment on above: Performed By: #### P T, CBC, PTT, CK, HS TROP, BNP, CMP, MG #### [address] Chloride [Moles/Vol] 98 mmol/L Normal 98-107 [facility] Comment on above: Performed By: #### P T, CBC, PTT, CK, HS TROP, BNP, CMP, MG #### [address] CO2 [Moles/Vol] 25.7 mmol/L Normal 21.0-31.0 [facility] Comment on above: Performed By: #### P T, CBC, PTT, CK, HS TROP, BNP, CMP, MG #### [address] Creatinine [Mass/Vol] 1.23 mg/dL High 0.60-1.20 [facility] Comment on above: Performed By: #### P T, CBC, PTT, CK, HS TROP, BNP, CMP, MG #### [address] Creatinine Clr Calc Pharmacy 48.79 [facility] Comment on above: Performed By: #### P T, CBC, PTT, CK, HS TROP, BNP, CMP, MG #### [address] GFR/1.73 sq M.predicted MDRD (S/P/Bld) [Vol rate/Area] 50.309 mL/min/{1.73_m2} [facility] Comment on above: Performed By: #### P T, CBC, PTT, CK, HS TROP, BNP, CMP, MG #### [address] Globulin (S) [Mass/Vol] 2.3 g/dL [facility] Comment on above: Performed By: #### P T, CBC, PTT, CK, HS TROP, BNP, CMP, MG #### [address] Glucose [Mass/Vol] 98 mg/dL Normal 70-100 [facility] Comment on above: Result Comment: [place] Glucose Reference Range is dependent on time and content of last meal. Glucose of more than 200 mg/dL in a nonstressed, ambulatory subject supports the diagnosis of Diabetes Mellitus. ADA recommended reference range Performed By: #### P T, CBC, PTT, CK, HS TROP, BNP, CMP, MG #### [address] Potassium [Moles/Vol] 4.7 mmol/L Normal 3.5-5.1 [facility] Comment on above: Performed By: #### P T, CBC, PTT, CK, HS TROP, BNP, CMP, MG #### [facility] [address] Protein [Mass/Vol] 5.9 g/dL Low 6.4-8.9 [facility] Comment on above: Performed By: #### P T, CBC, PTT, CK, HS TROP, BNP, CMP, MG #### [facility] [address] Sodium [Moles/Vol] 129 mmol/L Low 136-145 [facility] Comment on above: Performed By: #### P T, CBC, PTT, CK, HS TROP, BNP, CMP, MG #### [facility] [address] [place] [address] Urea nitrogen [Mass/Vol] 36 mg/dL High 01-17 [facility] Comment on above: Performed By: #### P T, CBC, PTT, CK, HS TROP, BNP, CMP, MG #### [facility] [address] [place] [address] Creatine Kinaseon 10-28-2022 CK [Catalytic activity/Vol] 45 U/L Normal [facility] Comment on above: Performed By: #### P T, CBC, PTT, CK, HS TROP, BNP, CMP, MG #### [address] Creatine kinase [Enzymatic a ctivity/volume] in Serum or PlasmaOrdered By: Favian Helm on 10-28-2022 CK [Catalytic activity/Vol] 45 U/L [facility] Creatinine [Mass/volume] in Serum or PlasmaOrdered By: Favian Helm on 10-28-2022 Creatinine [Mass/Vol] 1.23 mg/dL 0.60-1.20 [facility] ECG 12 lead ECGon 10-28-2022 ECG 12 lead ECG [facility] [place] [address] Electrocardiograph Report Signed Patient: Mabel Moser MR#: [id number] : 1960 Acct:[id number] Age/Sex: 62 / F ADM Date: 10/28/22 Loc: ER Room: Type: [facility] ER Attending Dr: Ordering Provider: Favian Helm PA-C Date of Service: 10/28/2211/16/1807 ECG/ECG 12 lead ECG: Shortness of Breath/Dyspnea Copies to: Test Reason : Blood Pressure : 181/086 mmHG Vent. Rate : 074 BPM Atrial Rate : 074 BPM P-R Int : 154 ms QRS Dur : 096 ms QT Int : 382 ms P-R-T Axes : 060 021 028 degrees QTc Int : 424 ms Normal sinus rhythm Minimal voltage criteria for LVH, may be normal variant Confirmed by Chris MAURO DO ([id number]) on 10/28/2022 8:40:44 PM Referred By: Electronically Signed By:Chris MAURO DO Transcribed By: MUS Signed By Chris Mauro DO 0 10/28/222039 Normal [facility] Eosinophils Auto (Bld) [#/Vo l]Ordered By: Favian Helm on 10-28-2022 Eosinophils (Bld) [#/Vol] 0.1 10*3/uL 0.0-0.45 [facility] Eosinophils/100 WBC Auto (Bl d)Ordered By: Favian Helm on 10-28-2022 Eosinophils/100 WBC (Bld) 1.0 % . [facility] Erythrocyte distribution wid th Auto (RBC) [Ratio]Ordered By: Favian Helm on 10-28-2022 Erythrocyte distribution width (RBC) [Ratio] 16.5 % 11.9-15.3 [facility] Globulin Calc (S) [Mass/Vol] Ordered By: Favian Helm on 10-28-2022 Globulin (S) [Mass/Vol] 2.3 g/dL [facility] Glucose [Mass/volume] in Ser um or PlasmaOrdered By: Favian Helm on 10-28-2022 Glucose [Mass/Vol] 98 mg/dL 70-100 [facility] Comment on above: ADA recommended refe rence rangeRandom Glucose Reference Range is dependent on time and content of last meal. Glucose of more than 200 mg/dL in a nonstressed, ambulatory subject supports the diagnosis of Diabetes Mellitus. Hematocrit Auto (Bld) [Volum e fraction]Ordered By: Favian Helm on 10-28-2022 Hematocrit (Bld) [Volume fraction] 29.9 % 34.0-46.4 [facility] Hemoglobin [Mass/volume] in BloodOrdered By: Favian Helm on 10-28-2022 Hemoglobin (Bld) [Mass/Vol] 9.6 g/dL 11.8-15.4 [facility] Laboratory - CoagulationOrde red By: Favian Helm on 10-28-2022 PT Coag (PPP) [Time] 11.0 s 9.0-12.9 [facility] Leukocytes [#/volume] correc nicol for nucleated erythrocytes in Blood by Automated counOrdered By: Favian Helm on 10-28-2022 WBC corrected for nucl RBC Auto (Bld) [#/Vol] 6.6 10*3/uL 3.8-11.6 [facility] Lymphocytes Auto (Bld) [#/Vo l]Ordered By: Favian Helm on 10-28-2022 Lymphocytes (Bld) [#/Vol] 0.8 10*3/uL 1.00-4.8 [facility] Lymphocytes/100 WBC Auto (Bl d)Ordered By: Favian Helm on 10-28-2022 Lymphocytes/100 WBC (Bld) 12.8 % . [facility] MCH Auto (RBC) [Entitic mass ]Ordered By: Favian Helm on 10-28-2022 MCH (RBC) [Entitic mass] 28.3 pg 24.7-34.3 [facility] MCHC Auto (RBC) [Mass/Vol]Or dered By: Favian Helm on 10-28-2022 MCHC (RBC) [Mass/Vol] 32.0 g/dL 32.0-35.0 [facility] MCV Auto (RBC) [Entitic vol] Ordered By: Favian Helm on 10-28-2022 MCV (RBC) [Entitic vol] 88.3 fL 80-100 [facility] Magnesiumon 05-05-2023 Magnesium [Mass/Vol] 1.9 mg/dL Normal 1.9-2.7 [facility] Comment on above: Result Comment: PERF ORMED BY: [facility] [address] [place] [address] PATHOLOGIST [employer]IR [employer] DRIVER TANNER GAVIN M.D. Performed By: #### P T, CBC, PTT, CK, HS TROP, BNP, CMP, MG #### [facility] [address] Magnesium [Mass/volume] in S andrea or PlasmaOrdered By: Favian Helm on 10-28-2022 Magnesium [Mass/Vol] 1.9 mg/dL 1.9-2.7 [facility] Monocyte distribution width [Entitic volume] in Blood by AutomatedOrdered By: Favian Helm on 10-28-2022 Monocyte distribution width Auto (Bld) [Entitic vol] 17.29 % 0.00-20.00 [facility] Monocytes Auto (Bld) [#/Vol] Ordered By: Favian Helm on 10-28-2022 Monocytes (Bld) [#/Vol] 0.2 10*3/uL 0.0-0.8 [facility] Monocytes/100 WBC Auto (Bld) Ordered By: Favian Helm on 10-28-2022 Monocytes/100 WBC (Bld) 2.5 % . [facility] Natriuretic peptide B [Mass/ Vol]Ordered By: Favian Helm on 10-28-2022 Natriuretic peptide B (Bld) [Mass/Vol] 551.0 pg/mL 5-100 [facility] Neutrophils Auto (Bld) [#/Vo l]Ordered By: Favian Helm on 10-28-2022 Neutrophils (Bld) [#/Vol] 5.5 10*3/uL 1.8-7.7 [facility] Neutrophils/100 WBC Auto (Bl d)Ordered By: Favian eHlm on 10-28-2022 Neutrophils/100 WBC (Bld) 83.3 % . [facility] No Panel InformationOrdered By: Favian Helm on 10-28-2022 Estimated GFR (CKD-EPI) 50.309 mL/Min [facility] Creatinine Clearance (Chem 48.79 [facility] Nucleated erythrocytes [Pres ence] in Blood by Automated countOrdered By: Favian Heml on 10-28-2022 Nucleated RBC Auto Ql (Bld) 0.0 /100{WBC} 0-0.5 [facility] Office Visiton 10-28-2022 Follow-up visit [id number] Loren Moser 1960 F Date Provider Department Center 10/28/2022 Nick-JOANA, RHIANNON CARD [facility] No family history on file Level of Service:89160 [place] OFFICE/OUTPATIENT ESTABLISHED MOD MDM 30-39 MIN Normal [facility] Partial Thromboplastin Timeo n 10-28-2022 aPTT Coag (Bld) [Time] 31.7 s Normal 25.1-36.5 [facility] Comment on above: Result Comment: PERF ORMED BY: [facility] [address] [place] [address] PATHOLOGIST [employer] DRIVER TANNER GAVIN M.D. Performed By: #### P T, CBC, PTT, CK, HS TROP, BNP, CMP, MG #### [facility] [address] Platelet mean volume Auto (B ld) [Entitic vol]Ordered By: Favian Helm on 10-28-2022 Platelet mean volume (Bld) [Entitic vol] 7.3 fL 6.3-10.7 [facility] Platelet poor plasma interna tional normalized ratio (INR) by coagulation assay (relatOrdered By: Favian Helm on 10-28-2022 INR Coag (PPP) [Relative time] 1.0 {INR} [facility] Comment on above: INR Therapeutic Rang e A) Pre- and Peroperative OAT started two weeks before surgery. NOT HIP SURGERY: 1.5 - 2.5 HIP SURGERY: 2 - 3B) Primary and secondary prevention of venous THROMBOSIS: 2 - 3C) Active venous thrombosis, pulmonary embolismand prevention of recurrent venous thrombosis: 2 - 3D) Prevention of arterial thromboembolismincluding patients with mechanical heart valves: 3 - 4.5 Platelets Auto (Bld) [#/Vol] Ordered By: Favian Helm on 05-05-2023 Platelets (Bld) [#/Vol] 260 10*3/uL 150-450 [facility] Potassium [Moles/volume] in Serum or PlasmaOrdered By: Favian Helm on 10-28-2022 Potassium [Moles/Vol] 4.7 mmol/L 3.5-5.1 [facility] Protein [Mass/volume] in Ser um or PlasmaOrdered By: Favian Helm on 10-28-2022 Protein [Mass/Vol] 5.9 g/dL 6.4-8.9 [facility] Prothrombin Time INRon 10-28 INR Coag (PPP) [Relative time] 1.0 {INR} Normal [facility] Comment on above: Result Comment: INR Therapeutic Range A) Pre- and Peroperative OAT started two weeks before surgery. NOT HIP SURGERY: 1.5 - 2.5 HIP SURGERY: 2 - 3 B) Primary and secondary prevention of venous THROMBOSIS: 2 - 3 C) Active venous thrombosis, pulmonary embolism and prevention of recurrent venous thrombosis: 2 - 3 D) Prevention of arterial thromboembolism including patients with mechanical heart valves: 3 - 4.5 Performed By: #### P T, CBC, PTT, CK, HS TROP, BNP, CMP, MG #### [facility] [address] PT Coag (PPP) [Time] 11.0 s Normal 9.0-12.9 [facility] Comment on above: Performed By: #### P T, CBC, PTT, CK, HS TROP, BNP, CMP, MG #### [facility] [address] RBC Auto (Bld) [#/Vol]Ordere d By: Favian Helm on 10-28-2022 RBC (Bld) [#/Vol] 3.38 10*6/uL 3.60-5.00 [facility] Serum or plasma albumin/glob ulin mass ratioOrdered By: Favian Helm on 10-28-2022 Albumin/Globulin [Mass ratio] 1.6 {ratio} [facility] Serum or plasma anion gap de terminationOrdered By: Favian Helm on 10-28-2022 Anion gap [Moles/Vol] 10.0 mmol/L 6.0-15.0 [facility] Sodium [Moles/volume] in Ser um or PlasmaOrdered By: Favian Helm on 10-28-2022 Sodium [Moles/Vol] 129 mmol/L 136-145 [facility] Troponin I High Sensitivityo n 10-28-2022 Troponin I High Sensitivity 5.8 pg/mL Normal 0.0-15.0 [facility] Comment on above: Result Comment: PERF ORMED BY: [place] [address] PATHOLOGIST [employer] TANNER GAVIN M.D. Performed By: #### P T, CBC, PTT, CK, HS TROP, BNP, CMP, MG #### [address] Troponin I.cardiac [Mass/vol ume] in Serum or Plasma by Detection limit <= 0.01 ng/Ordered By: Favian Helm on 10-28-2022 Troponin I.cardiac DL <= 0.01 ng/mL [Mass/Vol] 5.8 pg/mL 0.0-15.0 [facility] Urea nitrogen [Mass/volume] in Serum or PlasmaOrdered By: Favian Helm on 10-28-2022 Urea nitrogen [Mass/Vol] 36 mg/dL 7-25 [facility] WBC Auto (Bld) [#/Vol]Ordere d By: Favian Helm on 10-28-2022 WBC (Bld) [#/Vol] 6.6 10*3/uL 3.8-11.6 [facility] XR chest 2V*on 10-28-2022 XR chest 2V* [facility] [address] [place] [address] [place] [address] XRay Report Signed Patient: Mabel Moser MR#: [id number] : 1960 Acct:[id number] Age/Sex: 62 / F ADM Date: 10/28/22 Loc: ER Room: Type: [facility] ER Attending Dr: Copies to: Favian Helm PA-C Ordering Provider: Favian Helm PA-C Date of Service: 10/28/22 XR/XR chest 2V*: Shortness of Breath/Dyspnea Plain film chest 2 view HISTORY: Fluid overload. Shortness of breath. Headache. COMPARISON: 08/31/2018 FINDINGS: SUPPORT DEVICES: None POSTSURGICAL CHANGES: Right Trxijc-n-Pkoj intact with tip overlying the distal SVC. HEART: Within normal limits PULMONARY RAI: Within normal limits MEDIASTINUM: Unremarkable LUNGS AND PLEURA: No acute lung process, pleural effusion or pneumothorax identified. BONY STRUCTURES: Intact ADDITIONAL FINDINGS None XR/XR chest 2V* IMPRESSION: No acute process. Impression dictated by: Baljinder Ball M.D.10/28/2022 7:50 PM Dictation Location: [place] [address] Transcribed By: [facility] 10/28/221949 Dictated By: Baljinder Ball DO 10/28/221945 Signed By: 10/28/221949 [facility] BNPon 10-26-2022 Natriuretic peptide B (Bld) [Mass/Vol] 2657.0 pg/mL Critically high <=900.0 [facility] Comment on above: Performed By: #### C MP, BNP ####[facility] [address] [place] [address]DrKianna Tripathi CBC AUTO DIFFon 10-26-2022 BASO # 0.0 103/ul Normal 0.0-0.1 [facility] Comment on above: Performed By: #### C BC ####[facility] [address] [place], [place] [address]Dr. Airam Tripathi Basophils/100 WBC (Bld) 0.5 % Normal 0.2-2.0 [facility] Comment on above: Performed By: #### C BC ####[facility] [address] [place] [address]DrKianna Tripathi EO # 0.3 103/ul Normal 0.0-0.7 [facility] Comment on above: Performed By: #### C BC ####[facility] [address] [place], [place] [address]Dr. Airam Tripathi Eosinophils/100 WBC (Bld) 4.8 % Normal 0.9-7.0 [facility] Comment on above: Performed By: #### C BC ####[facility] [address] [place] [address]Dr. Airam Tripathi Erythrocyte distribution width (RBC) [Ratio] 15.5 % Critically high 11.0-15.0 [facility] Comment on above: Performed By: #### C BC ####[facility] [address] [place], [place] [address]Dr. Airam Tripathi Hematocrit (Bld) [Volume fraction] 27.7 % Critically low 36.0-48.0 [facility] Comment on above: Performed By: #### C BC ####[facility] [address] [place], [place] [address]Dr. Airam Tripathi Hemoglobin (Bld) [Mass/Vol] 8.8 g/dL Critically low 12.0-16.0 [facility] Comment on above: Performed By: #### C BC ####[facility] [address] [place], [place] [address]Dr. Airam Tripathi IG # 0.03 10e3/ul Normal 0.00-0.03 [facility] Comment on above: Performed By: #### C BC ####[facility] [address] [place], [place] [address]Dr. Airam Tripathi IG % 0.5 % Normal 0.0-0.5 [facility] Comment on above: Performed By: #### C BC ####[facility] Unbiqylofo[address] [place], [place] [address]Dr. Airam Tripathi LYMPH # 1.6 103/ul Normal 1.2-3.8 [facility] Comment on above: Performed By: #### C BC ####[facility] Txzsiprdml[address] [place], [place] [address]Dr. Airam Tripathi Lymphocytes/100 WBC (Bld) 25.5 % Normal 20.5-60.0 [facility] Comment on above: Performed By: #### C BC ####[facility] Klmqonxhae[address] [place], [place] [address]Dr. Selenaneil Tripathi MANUAL DIFF REQ NO Normal [facility] Comment on above: Performed By: #### C BC ####[facility] [address]fowivxj[address] [place] [id number]. Airam Deuce MCH (RBC) [Entitic mass] 29.0 pg Normal 26.7-34.0 [facility] Comment on above: Performed By: #### C BC ####[facility] [address]kkzercwh[address] [place] [id number]. Selenaneil Tripathi MCHC (RBC) [Mass/Vol] 31.8 g/dL Normal 29.9-35.2 [facility] Comment on above: Performed By: #### C BC ####[facility] [address]pr[address] [place] [address]Dr. Airam Tripathi MCV (RBC) [Entitic vol] 91.4 fL Normal 81.0-99.0 [facility] Comment on above: Performed By: #### C BC ####[facility] Ykvpmyfqvi[address] [place], [place] [address]Dr. Airam Tripathi MONO # 0.5 103/ul Normal 0.3-0.8 [facility] Comment on above: Performed By: #### C BC ####[facility] [address]ngwjvs[address] [place], [place] [address]Dr. Airam Tripathi Monocytes/100 WBC (Bld) 7.5 % Normal 1.7-12.0 [facility] Comment on above: Performed By: #### C BC ####[facility] Msjwqrengo[address] [place], [place] [address]Dr. Airam Tripathi NEUT # 3.9 103/ul Normal 1.4-6.5 [facility] Comment on above: Performed By: #### C BC ####[facility] Spcnrsvqdc[address] [place], [place] [address]DrKianna Tripathi Neutrophils/100 WBC (Bld) 61.2 % Normal 43.0-75.0 [facility] Comment on above: Performed By: #### C BC ####[facility] Stqxylsihw[address] [place], [place] [address]DrKianna Tripathi Platelet mean volume (Bld) [Entitic vol] 9.4 fL Critically low 9.5-13.5 [facility] Comment on above: Performed By: #### C BC ####[facility] Qpvyvnntte[address] [place] [id number]. Airam Tripathi PLT 247 103/ul Normal 150-450 [facility] Comment on above: Performed By: #### C BC ####[facility] Acnkkdyxkc[address] [place] [id number]. Airam Tripathi RBC 3.03 106/ul Critically low 4.20-5.40 [facility] Comment on above: Performed By: #### C BC ####[facility] Kzsoyqyskd[address] [place] [id number]. Airam Tripathi WBC 6.4 103/ul Normal 4.0-11.0 [facility] Comment on above: Performed By: #### C BC ####[facility] S[address]iqczcxy[address] [place] [address]Dr. Airam Tripathi PROF 14(COMP METB)on 023 Albumin [Mass/Vol] 2.5 g/dL Critically low 3.4-5.0 [facility] Comment on above: Performed By: #### C MP, BNP ####[facility] [address]opfdxzb[address] [place] [address]Dr. Airam Tripathi Albumin/Globulin [Mass ratio] 0.9 {ratio} Normal [facility] Comment on above: Performed By: #### C MP, BNP ####[facility] Dlweyuogta[address] [place] [address]Dr. Airam Tripathi ALP [Catalytic activity/Vol] 108 U/L Normal 46-116 [facility] Comment on above: Performed By: #### C MP, BNP ####[facility] Bgssprmslt[address] [place] [address]Dr. Airam Tripathi ALT [Catalytic activity/Vol] 20 U/L Normal 14-59 [facility] Comment on above: Performed By: #### C MP, BNP ####[facility] Sneizjznpp[address] [place] [id number]. Airam Tripathi Anion gap [Moles/Vol] 10.4 mmol/L Normal [facility] Comment on above: Performed By: #### C MP, BNP ####[facility] Ysjciokdum[address] [place], [place] [address]Dr. Airam Deuce AST [Catalytic activity/Vol] 20 U/L Normal 15-37 [facility] Comment on above: Performed By: #### C MP, BNP ####[facility] Ufymsospme[address] [place], [place] [address]Dr. Airam Tripathi Bilirubin [Mass/Vol] 0.2 mg/dL Normal 0.2-1.0 [facility] Comment on above: Performed By: #### C MP, BNP ####[facility] Yehjpmfmif[address] [place], [place] [address]Dr. Airam Tripathi Calcium [Mass/Vol] 8.0 mg/dL Critically low 8.5-10.1 [facility] Comment on above: Performed By: #### C MP, BNP ####[facility] Nnxlmbirla[address] [place], [place] [address]Dr. Airam Tripathi Chloride [Moles/Vol] 100 mmol/L Normal 98-107 [facility] Comment on above: Performed By: #### C MP, BNP ####[facility] Qcgzctgyrw8360[address] [place], [place] [address]Dr. Airam Tripathi CO2 [Moles/Vol] 28.6 mmol/L Normal 21.0-32.0 [facility] Comment on above: Performed By: #### C MP, BNP ####[facility] Knbllrmvef[address] [place], [place] [address]Dr. Airam Tripathi Creatinine [Mass/Vol] 1.66 mg/dL Critically high 0.55-1.02 [facility] Comment on above: Performed By: #### C MP, BNP ####[facility] Ehxqvxbeaw23[address] [place], [place] [address]Dr. Airam Tripathi EGFR-AF VENEZUELAN 38 mL/min/1.73m2 Critically low >=60 [facility] Comment on above: Performed By: #### C MP, BNP ####[facility] Lofziqmoeb[address] [place], [place] [address]Dr. Airam Tripathi EGFR-NON AF VENEZUELAN 32 mL/min/1.73m2 Critically low >=60 [facility] Comment on above: Performed By: #### C MP, BNP ####[facility] [address]dwwftx[address] [place] [address]Dr. Airam Tripathi Globulin (S) [Mass/Vol] 2.8 g/dL Normal [facility] Comment on above: Performed By: #### C MP, BNP ####[facility] Jpljabvwqx58[address] [place] [address]Dr. Airam Tripathi Glucose [Mass/Vol] 102 mg/dL Normal 74-106 [facility] Comment on above: Performed By: #### C MP, BNP ####[facility] Fzrrauivty[address] [place], [place] [address]Dr. Airam Tripathi Potassium [Moles/Vol] 5.0 mmol/L Normal 3.5-5.1 [facility] Comment on above: Performed By: #### C MP, BNP ####[facility] Cgqrzeyuhu33[address] [place], [place] [address]Dr. Airam Tripathi Protein [Mass/Vol] 5.3 g/dL Critically low 6.4-8.2 [facility] Comment on above: Performed By: #### C MP, BNP ####[facility] Fcsimnluud[address] [place], [place] [address]Dr. Airam Tripathi Sodium [Moles/Vol] 134 mmol/L Critically low 136-145 [facility] Comment on above: Performed By: #### C MP, BNP ####[facility] Gkhvewzfwn48[address] [place], [place] [address]Dr. Airam Tripathi Urea nitrogen [Mass/Vol] 45.0 mg/dL Critically high 7.0-18.0 [facility] Comment on above: Performed By: #### C MP, BNP ####[facility] Wngxjwwlwk[address] [place], [place] [address]Dr. Airam Tripathi Urea nitrogen/Creatinine [Mass ratio] 27.1 mg/mg Normal [facility] Comment on above: Performed By: #### C MP, BNP ####[facility] B[address]rimnvzd[address] [place] [address]Dr. Airam Tripathi BNPon 10-25-2022 Natriuretic peptide B (Bld) [Mass/Vol] 4569.0 pg/mL Critically high <=900.0 [facility] Comment on above: Performed By: #### C MP, BNP ####[facility] Ywrtowukbv[address] [place], [place] [address]Dr. Airam Deuce CBC AUTO DIFFon 10-25-2022 BASO # 0.0 103/ul Normal 0.0-0.1 [facility] Comment on above: Performed By: #### C BC ####[facility] Mkengfxihv[address] [place], [place] [address]Dr. Airam Tripathi Basophils/100 WBC (Bld) 0.5 % Normal 0.2-2.0 [facility] Comment on above: Performed By: #### C BC ####[facility] Oeopxddxlc7[address] [place], [place] [address]Dr. Airam Tripathi EO # 0.3 103/ul Normal 0.0-0.7 [facility] Comment on above: Performed By: #### C BC ####[facility] Ftvjluwxfs6[address] [place], [place] [address]Dr. Selenaneil Tripathi Eosinophils/100 WBC (Bld) 5.6 % Normal 0.9-7.0 [facility] Comment on above: Performed By: #### C BC ####[facility] Xhoagsbnnf[address] [place], [place] [address]Dr. Airam Tripathi Erythrocyte distribution width (RBC) [Ratio] 15.7 % Critically high 11.0-15.0 [facility] Comment on above: Performed By: #### C BC ####[facility] Pkcjzgkalj[address] [place], [place] [address]Dr. Airam Tripathi Hematocrit (Bld) [Volume fraction] 30.1 % Critically low 36.0-48.0 [facility] Comment on above: Performed By: #### C BC ####[facility] Yywdytpdto[address] [place], [place] [address]Dr. Airam Tripathi Hemoglobin (Bld) [Mass/Vol] 9.2 g/dL Critically low 12.0-16.0 [facility] Comment on above: Performed By: #### C BC ####[facility] [address]vagrv[address] [place] [address]DrKianna Tripathi IG # 0.03 10e3/ul Normal 0.00-0.03 [facility] Comment on above: Performed By: #### C BC ####[facility] Tnuzwitvzq[address] [place] [address]DrKianna Tripathi IG % 0.5 % Normal 0.0-0.5 [facility] Comment on above: Performed By: #### C BC ####[facility] Dfttrmkbnz[address] [place], [place] [address]DrKianna Tripathi LYMPH # 1.7 103/ul Normal 1.2-3.8 [facility] Comment on above: Performed By: #### C BC ####[facility] Ewbfrpvkxf[address] [place] [address]DrKianna Tripathi Lymphocytes/100 WBC (Bld) 28.9 % Normal 20.5-60.0 [facility] Comment on above: Performed By: #### C BC ####[facility] Vuathusoms[address] [place] [address]DrKianna Tripathi MANUAL DIFF REQ NO Normal [facility] Comment on above: Performed By: #### C BC ####[facility] Fybrkayygj[address] [place] [address]DrKianna Tripathi MCH (RBC) [Entitic mass] 28.4 pg Normal 26.7-34.0 [facility] Comment on above: Performed By: #### C BC ####[facility] Jqmhfcaogc9[address] [place] [address]DrKianna Tripathi MCHC (RBC) [Mass/Vol] 30.6 g/dL Normal 29.9-35.2 [facility] Comment on above: Performed By: #### C BC ####[facility] Vrkogzgecf22[address] [place] [address]DrKianna Tripathi MCV (RBC) [Entitic vol] 92.9 fL Normal 81.0-99.0 [facility] Comment on above: Performed By: #### C BC ####[facility] Mywwsbyhrn[address] [place] [address]Dr. Airam Tripathi MONO # 0.5 103/ul Normal 0.3-0.8 [facility] Comment on above: Performed By: #### C BC ####[facility] Ubuqnklfyf[address] [place] [address]Dr. Airam Tripathi Monocytes/100 WBC (Bld) 8.5 % Normal 1.7-12.0 [facility] Comment on above: Performed By: #### C BC ####[facility] Osjvzqdoxj[address] [place] [address]Dr. Airam Tripathi NEUT # 3.2 103/ul Normal 1.4-6.5 [facility] Comment on above: Performed By: #### C BC ####[facility] Trwjvidqnc[address] [place], [place] [address]Dr. Airam Tripathi Neutrophils/100 WBC (Bld) 56.0 % Normal 43.0-75.0 [facility] Comment on above: Performed By: #### C BC ####[facility] Wbzqhzbymf[address] [place] [address]Dr. Airam Tripathi Platelet mean volume (Bld) [Entitic vol] 9.4 fL Critically low 9.5-13.5 [facility] Comment on above: Performed By: #### C BC ####[facility] Sxngxbotyx[address] [place] [address]Dr. Airam Tripathi PLT 272 103/ul Normal 150-450 [facility] Comment on above: Performed By: #### C BC ####[facility] Kwlkrpefba[address] [place] [id number]. Airam Tripathi RBC 3.24 106/ul Critically low 4.20-5.40 [facility] Comment on above: Performed By: #### C BC ####[facility] Gveblydihr[address] [place] [address]Dr. Selenaneil Deuce WBC 5.8 103/ul Normal 4.0-11.0 [facility] Comment on above: Performed By: #### C BC ####[facility] Lnyiyqtwrs[address] [place] [address]Dr. Airam Tripathi OSMOLALITYon 10-25-2022 Osmolality [Osmolality] 282 mosm/kg Normal 275-295 [facility] Comment on above: Performed By: #### O SMO ####[facility] Jlstzdeuyq7[address] [place] [address]Dr. Airam Tripathi PROF 14(COMP METB)on 023 Albumin [Mass/Vol] 2.7 g/dL Critically low 3.4-5.0 [facility] Comment on above: Performed By: #### C MP, BNP ####[facility] Tzepogltsh[address] [place], [place] [address]Dr. Airam Tripathi Albumin/Globulin [Mass ratio] 0.9 {ratio} Normal [facility] Comment on above: Performed By: #### C MP, BNP ####[facility] Ihfnwuoldn[address] [place], [place] [address]Dr. Airam Tripathi ALP [Catalytic activity/Vol] 122 U/L Critically high 46-116 [facility] Comment on above: Performed By: #### C MP, BNP ####[facility] Syeuuyqpqw[address] [place], [place] [address]Dr. Airam Tripathi ALT [Catalytic activity/Vol] 23 U/L Normal 14-59 [facility] Comment on above: Performed By: #### C MP, BNP ####[facility] Ykkujigbmy[address] [place] [address]Dr. Airam Tripathi Anion gap [Moles/Vol] 10.5 mmol/L Normal Th [facility] Comment on above: Performed By: #### C MP, BNP ####[facility] Yzmzzfgste[address] [place] [address]Dr. Airam Tripathi AST [Catalytic activity/Vol] 22 U/L Normal 15-37 [facility] Comment on above: Performed By: #### C MP, BNP ####[facility] Vaablfbdjo17[address] [place], [place] [address]Dr. Airam Tripathi Bilirubin [Mass/Vol] 0.2 mg/dL Normal 0.2-1.0 [facility] Comment on above: Performed By: #### C MP, BNP ####[facility] Qopbzquwrh047[address] [place], [place] [address]Dr. Airam Tripathi Calcium [Mass/Vol] 8.3 mg/dL Critically low 8.5-10.1 [facility] e [facility] Comment on above: Performed By: #### C MP, BNP ####[facility] Vmkzzhsfyr8[address] [place], [place] [address]Dr. Airam Tripathi Chloride [Moles/Vol] 102 mmol/L Normal 98-107 [facility] Comment on above: Performed By: #### C MP, BNP ####[facility] Ekahzdgdit3866[address] [place], [place] [address]Dr. Airam Tripathi CO2 [Moles/Vol] 29.7 mmol/L Normal 21.0-32.0 [facility] Comment on above: Performed By: #### C MP, BNP ####[facility] Morzvvplmf[address] [place], [place] [address]Dr. Airam Tripathi Creatinine [Mass/Vol] 1.31 mg/dL Critically high 0.55-1.02 [facility] Comment on above: Performed By: #### C MP, BNP ####[facility] Ifgjmrkvwc165[address] [place], [place] [address]Dr. Airam Deuce EGFR-AF VENEZUELAN 50 mL/min/1.73m2 Critically low >=60 [facility] Comment on above: Performed By: #### C MP, BNP ####[facility] Dsjjwxfrov352[address] [place], [place] [address]Dr. Airam Deuce EGFR-NON AF VENEZUELAN 41 mL/min/1.73m2 Critically low >=60 [facility] Comment on above: Performed By: #### C MP, BNP ####[facility] Slrskkynoj0237[address] [place], [place] [address]Dr. Selenaneil Deuce Globulin (S) [Mass/Vol] 2.9 g/dL Normal [facility] Comment on above: Performed By: #### C MP, BNP ####[facility] Upnhucnfxq[address] [place] [address]Dr. Airam Tripathi Glucose [Mass/Vol] 94 mg/dL Normal 74-106 [facility] Comment on above: Performed By: #### C MP, BNP ####[facility] Gvlaeawwmb2939[address] [place], [place] [address]Dr. Airam Tripathi Potassium [Moles/Vol] 4.2 mmol/L Normal 3.5-5.1 [facility] Comment on above: Performed By: #### C MP, BNP ####[facility] Wucqywzqtj2[address] [place], [place] [address]Dr. Airam Tripathi Protein [Mass/Vol] 5.6 g/dL Critically low 6.4-8.2 Th [facility] Comment on above: Performed By: #### C MP, BNP ####[facility] Xuaycwcgxf48[address] [place], [place] [address]Dr. Airam Tripathi Sodium [Moles/Vol] 138 mmol/L Normal 136-145 [facility] Comment on above: Performed By: #### C MP, BNP ####[facility] Fynzrdbuwc927[address] [place], [place] [address]Dr. Airam Tripathi Urea nitrogen [Mass/Vol] 33.0 mg/dL Critically high 7.0-18.0 [facility] Comment on above: Performed By: #### C MP, BNP ####[facility] Nokksihath1450[address] [place], [place] [address]Dr. Airam Tripathi Urea nitrogen/Creatinine [Mass ratio] 25.2 mg/mg Normal [facility] Comment on above: Performed By: #### C MP, BNP ####[facility] Xymkntozfi087[address] [place], [place] [address]Dr. Airam Tripathi BNPon 10-24-2022 Natriuretic peptide B (Bld) [Mass/Vol] 3805.0 pg/mL Critically high <=900.0 [facility] Comment on above: Performed By: #### H STROPN, BNP, CMP ####[facility] Qsdgiquqmn[address]257[address] [place], [place] [address]Dr. Airam Tripathi CBC AUTO DIFFon 10-24-2022 BASO # 0.0 103/ul Normal 0.0-0.1 [facility] Comment on above: Performed By: #### C BC ####[facility] Uboeaaftxs0[address] [place], [place] [address]Dr. Airam Tripathi Basophils/100 WBC (Bld) 0.3 % Normal 0.2-2.0 [facility] Comment on above: Performed By: #### C BC ####[facility] Cxayakwvsc8694[address] [place], [place] [address]Dr. Airam Tripathi EO # 0.3 103/ul Normal 0.0-0.7 [facility] Comment on above: Performed By: #### C BC ####[facility] Yyfgeqpzaf68[address] [place], [place] [address]Dr. Airam Tripathi Eosinophils/100 WBC (Bld) 4.2 % Normal 0.9-7.0 [facility] Comment on above: Performed By: #### C BC ####[facility] Iirhalonuy9435[address] [place], [place] [address]Dr. Airam Tripathi Erythrocyte distribution width (RBC) [Ratio] 15.6 % Critically high 11.0-15.0 [facility] Comment on above: Performed By: #### C BC ####[facility] Ywaxtgvwlf[address] [place], [place] [address]Dr. Airam Tripathi Hematocrit (Bld) [Volume fraction] 30.0 % Critically low 36.0-48.0 [facility] Comment on above: Performed By: #### C BC ####[facility] Pddtpooelo[address] [place], [place] [address]Dr. Airam Tripathi Hemoglobin (Bld) [Mass/Vol] 9.3 g/dL Critically low 12.0-16.0 [facility] Comment on above: Performed By: #### C BC ####[facility] Lidvsgaimx022[address] [place], [place] [address]Dr. Airam Tripathi IG # 0.03 10e3/ul Normal 0.00-0.03 [facility] Comment on above: Performed By: #### C BC ####[facility] Fgvfhgejlt4[address] [place], [place] [address]Dr. Airam Tripathi IG % 0.5 % Normal 0.0-0.5 [facility] Comment on above: Performed By: #### C BC ####[facility] Qhlqluihby[address] [place] [address]DrKianna Airam Deuce LYMPH # 1.4 103/ul Normal 1.2-3.8 [facility] Comment on above: Performed By: #### C BC ####[facility] Iljngudagu57[address] [place] [address]DrKianna Selenaneil Tripathi Lymphocytes/100 WBC (Bld) 22.5 % Normal 20.5-60.0 [facility] Comment on above: Performed By: #### C BC ####[facility] Uxglnktjpt[address] [place], [place] [address]DrKianna Selenaneil Tripathi MANUAL DIFF REQ NO Normal [facility] Comment on above: Performed By: #### C BC ####[facility] Deymwvjvei[address] [place], [place] [address]DrKianna Airam Deuce MCH (RBC) [Entitic mass] 28.7 pg Normal 26.7-34.0 [facility] Comment on above: Performed By: #### C BC ####[facility] Gduqvdvxvc[address] [place], [place] [address]Dr. Airam Deuce MCHC (RBC) [Mass/Vol] 31.0 g/dL Normal 29.9-35.2 [facility] Comment on above: Performed By: #### C BC ####[facility] Hpsmlxefoc[address] [place], [place] [address]DrKianna Airam Deuce MCV (RBC) [Entitic vol] 92.6 fL Normal 81.0-99.0 [facility] Comment on above: Performed By: #### C BC ####[facility] Arvathanrf8939[address] [place], [place] [address]DrKianna Tripathi MONO # 0.4 103/ul Normal 0.3-0.8 [facility] Comment on above: Performed By: #### C BC ####[facility] [address]jfyui[address] [place], [place] [id number] Selenaneil Tripathi Monocytes/100 WBC (Bld) 7.3 % Normal 1.7-12.0 [facility] Comment on above: Performed By: #### C BC ####[facility] Uvsaplliii[address] [place] [address]Dr. Airam Tripathi NEUT # 3.9 103/ul Normal 1.4-6.5 [facility] Comment on above: Performed By: #### C BC ####[facility] Nsqyxwaslc[address] [place] [address]Dr. Airam Tripathi Neutrophils/100 WBC (Bld) 65.2 % Normal 43.0-75.0 [facility] Comment on above: Performed By: #### C BC ####[facility] Mtklnkwypk38[address] [place] [address]Dr. Airam Deuce Platelet mean volume (Bld) [Entitic vol] 9.0 fL Critically low 9.5-13.5 [facility] Comment on above: Performed By: #### C BC ####[facility] Gcyluomsdc[address] [place], [place] [address]Dr. Airam Tripathi PLT 247 103/ul Normal 150-450 [facility] Comment on above: Performed By: #### C BC ####[facility] Ttignpmhqn[address]67[address] [place], [place] [address]Dr. Airam Deuce RBC 3.24 106/ul Critically low 4.20-5.40 [facility] Comment on above: Performed By: #### C BC ####[facility] Gtujlqyiei[address] [place], [place] [address]Dr. Airam Tripathi WBC 6.0 103/ul Normal 4.0-11.0 [facility] Comment on above: Performed By: #### C BC ####[facility] Mcbmiokism[address] [place], [place] [id number]. Airam Tripathi CULTURE URINEon 10-24-2022 CULTURE URINE Culture Observations : LIGHT GROWTH OF MIXED GENITAL GREGORY. NO POTENTIAL PATHOGENS SEEN. Normal [facility] Comment on above: Performed By: #### U RCX ####[facility] [address]ubbsnhsaj[address] [place], [place] [address]Dr. Airam Tripathi POINT OF CARE GLUCOSEon 05-0 Glucose [Mass/Vol] 118 mg/dL Critically high 74-106 [facility] Comment on above: Performed By: #### P OCGLUC ####[facility] [address] [place] [address]Dr. Airam Tripathi PROF 14(COMP METB)on 023 Albumin [Mass/Vol] 3.1 g/dL Critically low 3.4-5.0 [facility] Comment on above: Performed By: #### H STROPN, BNP, CMP ####[facility] [address] [place] [address]Dr. Airam Tripathi Albumin/Globulin [Mass ratio] 1.0 {ratio} Normal [facility] Comment on above: Performed By: #### H STROPN, BNP, CMP ####[facility] [address]xibbxm[address] [place] [address]Dr. Ariam Tripathi ALP [Catalytic activity/Vol] 131 U/L Critically high 46-116 [facility] Comment on above: Performed By: #### H STROPN, BNP, CMP ####[facility] Ec[address]law[address] [place] [address]Dr. Airam Tripathi ALT [Catalytic activity/Vol] 26 U/L Normal 14-59 [facility] Comment on above: Performed By: #### H STROPN, BNP, CMP ####[facility] Xq[address]vugnb[address] [place] [address]Dr. Airam Tripathi Anion gap [Moles/Vol] 11.2 mmol/L Normal [facility] Comment on above: Performed By: #### H STROPN, BNP, CMP ####[facility] [address] [place] [address]Dr. Airam Tripathi AST [Catalytic activity/Vol] 31 U/L Normal 15-37 [facility] Comment on above: Performed By: #### H STROPN, BNP, CMP ####[facility] [address]dsy[address] [place] [address]Dr. Airam Tripathi Bilirubin [Mass/Vol] 0.2 mg/dL Normal 0.2-1.0 [facility] Comment on above: Performed By: #### H STROPN, BNP, CMP ####[facility] [address]tynbmy[address] [place] [address]Dr. Airam Tripathi Calcium [Mass/Vol] 8.6 mg/dL Normal 8.5-10.1 [facility] Comment on above: Performed By: #### H STROPN, BNP, CMP ####[facility] [address]blreh[address] [place] [address]Dr. Airam Tripathi Chloride [Moles/Vol] 102 mmol/L Normal 98-107 [facility] Comment on above: Performed By: #### H STROPN, BNP, CMP ####[facility] Iqsbusiqtm[address] [place] [address]Dr. Airam Tripathi CO2 [Moles/Vol] 27.4 mmol/L Normal 21.0-32.0 [facility] Comment on above: Performed By: #### H STROPN, BNP, CMP ####[facility] [address]us[address]ad[address] [place], [place] [address]Dr. Airam Tripathi Creatinine [Mass/Vol] 1.23 mg/dL Critically high 0.55-1.02 [facility] Comment on above: Performed By: #### H STROPN, BNP, CMP ####[facility] Slgvaevixz[address] [place], [place] [address]Dr. Airam Tripathi EGFR-AF VENEZUELAN 54 mL/min/1.73m2 Critically low >=60 [facility] Comment on above: Performed By: #### H STROPN, BNP, CMP ####[facility] Uuqafqbgul[address] [place], [place] [address]Dr. Airam Tripathi EGFR-NON AF VENEZUELAN 45 mL/min/1.73m2 Critically low >=60 [facility] Comment on above: Performed By: #### H STROPN, BNP, CMP ####[facility] Iklqqdzcdp[address] [place], [place] [address]Dr. Airam Tripatih Globulin (S) [Mass/Vol] 3.1 g/dL Normal [facility] Comment on above: Performed By: #### H STROPN, BNP, CMP ####[facility] [address]uqmwo[address] [place] [address]Dr. Airam Tripathi Glucose [Mass/Vol] 90 mg/dL Normal 74-106 [facility] Comment on above: Performed By: #### H STROPN, BNP, CMP ####[facility] [address]rgvpvct[address] [place] [address]Dr. Airam Tripathi Potassium [Moles/Vol] 5.6 mmol/L Critically high 3.5-5.1 [facility] Comment on above: Performed By: #### H STROPN, BNP, CMP ####[facility] Vioivppdww[address] [place] [address]Dr. Airam Tripathi Protein [Mass/Vol] 6.2 g/dL Critically low 6.4-8.2 [facility] Comment on above: Performed By: #### H STROPN, BNP, CMP ####[facility] Xdbzaxtfrg[address] [place], [place] [address]Dr. Airam Tripathi Sodium [Moles/Vol] 135 mmol/L Critically low 136-145 [facility] Comment on above: Performed By: #### H STROPN, BNP, CMP ####[facility] [address]vwmlbdmk[address] [place] [address]Dr. Airam Tripathi Urea nitrogen [Mass/Vol] 38.0 mg/dL Critically high 7.0-18.0 [facility] Comment on above: Performed By: #### H STROPN, BNP, CMP ####[facility] Zewqdesyzw[address] [place] [address]Dr. Airam Tripathi Urea nitrogen/Creatinine [Mass ratio] 30.9 mg/mg Normal [facility] Comment on above: Performed By: #### H STROPN, BNP, CMP ####[facility] V[address]vnawzad[address] [place], [place] [address]Dr. Airam Tripathi TROPONIN, HIGH SENSITIVITYon 10-24-2022 HSTROP 8.0 pg/mL Normal 4.0-51.3 [facility] Comment on above: Result Comment: CUT- OFF POINTS HAVE BEEN ESTABLISHED BASED ON THE FOURTH UNIVERSAL DEFINITIONS OF MYOCARDIALINFARCTION. THE UPPER REFERENCE LIMIT (URL) OF TROPONIN, DEFINED THE 99TH PERCENTILE OFcTnI DISTRIBUTION IN A REFERENCE POPULATION, HAS BEEN CONFIRMED THE DECISION THRESHOLDFOR HI DIAGNOSIS. Performed By: #### H STROPN, BNP, CMP ####[facility] [address]vcwnprms[address] [place], [place] [address]Dr. Airam Tripathi UA RANDOM W/MICROSCOPICon BACTERIA NONE SEEN Normal NONE SEEN The [facility] Comment on above: Performed By: #### U AMIC ####[facility] Swtx[address]jrfqz[address] [place], [place] [address]Dr. Airam Tripathi Bilirubin Ql (U) Negative Normal NEGATIVE [facility] Comment on above: Performed By: #### U AMIC ####[facility] Wdzpgdlvqm[address] [place], [place] [address]Dr. Airam Tripathi CAST NONE SEEN Normal NONE SEEN The [facility] Comment on above: Performed By: #### U AMIC ####[facility] Nganljxuok[address] [place], [place] [address]Dr. Airam Tripathi Clarity (U) CLEAR Normal CLEAR The [facility] Comment on above: Performed By: #### U AMIC ####[facility] Aqtorrlcph[address] [place], [place] [address]Dr. Airam Tripathi Color (U) LT. YELLOW Normal YELLOW [facility] Comment on above: Performed By: #### U AMIC ####[facility] Fjikoshkgi[address] [place], [place] [address]Dr. Airam Tripathi Crystals LM Nom (Urine sed) NONE SEEN Normal NONE SEEN The [facility] Comment on above: Performed By: #### U AMIC ####[facility] Pwaukycoyl[address] [place], [place] [address]Dr. Airam Tripathi Epithelial cells LM Ql (Urine sed) RARE Normal NONE SEEN /RARE The [facility] Comment on above: Performed By: #### U AMIC ####[facility] Ezkvmjutyg[address] [place], [place] [address]Dr. Airam Tripathi Glucose Ql (U) Negative Normal NEGATIVE The [facility] Comment on above: Performed By: #### U AMIC ####[facility] Ihvmnhbqup[address] [place], [place] [address]Dr. Airam Tripathi Hemoglobin Ql (U) Negative Normal NEGATIVE The [facility] Comment on above: Performed By: #### U AMIC ####[facility] Bbpxwogued[address] [place], [place] [address]Dr. Airam Tripathi Ketones Ql (U) Negative Normal NEGATIVE The [facility] Comment on above: Performed By: #### U AMIC ####[facility] Zuxiyqgcjk[address] [place], [place] [address]Dr. Airam Tripathi LEUKOCYTES Negative Normal NEGATIVE The [facility] Comment on above: Performed By: #### U AMIC ####[facility] Dnmqtihivb[address] [place], [place] [address]Dr. Airam Tripathi MUCOUS NONE SEEN Normal NONE SEEN The [facility] Comment on above: Performed By: #### U AMIC ####[facility] Hzyizisjdj7623[address] [place], [place] [address]Dr. Airam Tripathi Nitrite Ql (U) Negative Normal NEGATIVE The [facility] Comment on above: Performed By: #### U AMIC ####[facility] K[address]flpjbbv[address] [place], [place] [address]Dr. Airam Tripathi pH (U) 7.0 [pH] Normal 5-9 [facility] Comment on above: Performed By: #### U AMIC ####[facility] Ndkgyjmskx75[address] [place], [place] [address]Dr. Airam Deuce RBC 0-2 Normal 0-2 [facility] Comment on above: Performed By: #### U AMIC ####[facility] Nwuypmqvbp[address] [place], [place] [address]Dr. Airam Tripathi SPEC GRAVITY 1.015 Normal 1.005-<=1. 025 [facility] Comment on above: Performed By: #### U AMIC ####[facility] Yabwrknmgc[address]27[address] [place], [place] [address]Dr. Airam Tripathi UA PROTEIN Negative Normal NEGATIVE/ TRACE The [facility] Comment on above: Performed By: #### U AMIC ####[facility] Upuslwhhlz[address] [place], [place] [address]Dr. Airam Tripathi Urobilinogen Qn (U) 0.2 {Ligia'U}/dL Normal 0.2 - 1. 0 [facility] Comment on above: Performed By: #### U AMIC ####[facility] X[address] [place] [address]Dr. Airam Tripathi WBC NONE SEEN Normal NONE SEEN The [facility] Comment on above: Performed By: #### U AMIC ####[facility] L[address]acfiys[address] [place] [address]Dr. Airam Tripathi XR CHEST 1 Von 10-24-2022 XR CHEST 1 V Normal [facility] CBC AUTO DIFFon 10-19-2022 BASO # 0.0 103/ul Normal 0.0-0.1 [facility] Comment on above: Performed By: #### C BC ####[facility] Boubjtqtmt[address] [place], [place] [address]Dr. Airam Tripathi Basophils/100 WBC (Bld) 0.5 % Normal 0.2-2.0 [facility] Comment on above: Performed By: #### C BC ####[facility] Bzgftruorc[address] [place], [place] [address]Dr. Airam Tripathi EO # 0.3 103/ul Normal 0.0-0.7 [facility] Comment on above: Performed By: #### C BC ####[facility] Rgjqqpvzii[address] [place], [place] [address]Dr. Airam Tripathi Eosinophils/100 WBC (Bld) 3.3 % Normal 0.9-7.0 [facility] Comment on above: Performed By: #### C BC ####[facility] Ymdjqpbjgs[address] [place], [place] [address]Dr. Airam Tripathi Erythrocyte distribution width (RBC) [Ratio] 15.0 % Normal 11.0-15.0 [facility] Comment on above: Performed By: #### C BC ####[facility] Opykilabcz9625[address] [place], [place] [address]Dr. Airam Tripathi Hematocrit (Bld) [Volume fraction] 32.9 % Critically low 36.0-48.0 [facility] Comment on above: Performed By: #### C BC ####[facility] [address]ks[address] [place] [id number]. Airam Tripathi Hemoglobin (Bld) [Mass/Vol] 10.1 g/dL Critically low 12.0-16.0 [facility] Comment on above: Performed By: #### C BC ####[facility] [address] [place] [id number]. Airam Tripathi IG # 0.04 10e3/ul Critically high 0.00-0.03 [facility] Comment on above: Performed By: #### C BC ####[facility] [address]xagrb[address] [place] [address]Dr. Airam Tripathi IG % 0.5 % Normal 0.0-0.5 [facility] Comment on above: Performed By: #### C BC ####[facility] Xlwaopkwhk[address] [place] [address]Dr. Airam Tripathi LYMPH # 1.5 103/ul Normal 1.2-3.8 [facility] Comment on above: Performed By: #### C BC ####[facility] V[address]pwdzfjs[address] [place] [address]Dr. Airam Tripathi Lymphocytes/100 WBC (Bld) 18.1 % Critically low 20.5-60.0 [facility] Comment on above: Performed By: #### C BC ####[facility] Vlunedxrah[address] [place] [address]Dr. Airam Tripathi MANUAL DIFF REQ NO Normal [facility] Comment on above: Performed By: #### C BC ####[facility] Akdsozerod[address] [place] [address]Dr. Airam Tripathi MCH (RBC) [Entitic mass] 28.3 pg Normal 26.7-34.0 [facility] Comment on above: Performed By: #### C BC ####[facility] Ztljdabqvv7[address] [place], [place] [address]Dr. Airam Tripathi MCHC (RBC) [Mass/Vol] 30.7 g/dL Normal 29.9-35.2 [facility] Comment on above: Performed By: #### C BC ####[facility] [address] [place] [address]Qm. Airam Tripathi MCV (RBC) [Entitic vol] 92.2 fL Normal 81.0-99.0 [facility] Comment on above: Performed By: #### C BC ####[facility] Lamspmwutn7[address] [place] [id number]. Airam Tripathi MONO # 0.7 103/ul Normal 0.3-0.8 [facility] Comment on above: Performed By: #### C BC ####[facility] Dcaqgltrwi6[address] [place] [address]Dr. Airam Deuce Monocytes/100 WBC (Bld) 7.7 % Normal 1.7-12.0 [facility] Comment on above: Performed By: #### C BC ####[facility] Fdtryikftk[address] [place], [place] [address]Dr. Airam Tripathi NEUT # 5.9 103/ul Normal 1.4-6.5 [facility] Comment on above: Performed By: #### C BC ####[facility] Wzdqtvojln[address] [place], [place] [address]Dr. Airam Deuce Neutrophils/100 WBC (Bld) 69.9 % Normal 43.0-75.0 [facility] Comment on above: Performed By: #### C BC ####[facility] Glmhujgrkq4665[address] [place], [place] [address]Dr. Airam Deuce Platelet mean volume (Bld) [Entitic vol] 9.3 fL Critically low 9.5-13.5 [facility] Comment on above: Performed By: #### C BC ####[facility] Dswgfjpgeq4985[address] [place], [place] [address]Dr. Airam Deuce PLT 293 103/ul Normal 150-450 [facility] Comment on above: Performed By: #### C BC ####[facility] Ryzumnatgb[address] [place], [place] [id number]. Airam Deuce RBC 3.57 106/ul Critically low 4.20-5.40 [facility] Comment on above: Performed By: #### C BC ####[facility] Xawantvtxj[address] [place], [place] [id number]. Airam Tripathi WBC 8.4 103/ul Normal 4.0-11.0 [facility] Comment on above: Performed By: #### C BC ####[facility] Uwwxomxvja4[address] [place] [address]DrKianna Tripathi PROF 14(COMP METB)on 023 Albumin [Mass/Vol] 3.1 g/dL Critically low 3.4-5.0 [facility] Comment on above: Performed By: #### C MP ####[facility] Kfimplogfi7[address] [place] [address]Dr. Airam Tripathi Albumin/Globulin [Mass ratio] 0.9 {ratio} Normal [facility] Comment on above: Performed By: #### C MP ####[facility] Cwyweqvrbg[address] [place], [place] [address]Dr. Airam Tripathi ALP [Catalytic activity/Vol] 117 U/L Critically high 46-116 [facility] Comment on above: Performed By: #### C MP ####[facility] Loqaxxuhnv0637[address] [place], [place] [address]Dr. Airam Tripathi ALT [Catalytic activity/Vol] 24 U/L Normal 14-59 [facility] Comment on above: Performed By: #### C MP ####[facility] Xldjscuppc[address] [place], [place] [address]Dr. Airam Tripathi Anion gap [Moles/Vol] 11.1 mmol/L Normal [facility] Comment on above: Performed By: #### C MP ####[facility] Sxnsfrjgnp[address]127[address] [place], [place] [address]Dr. Airam Tripathi AST [Catalytic activity/Vol] 22 U/L Normal 15-37 [facility] Comment on above: Performed By: #### C MP ####[facility] Umgnxdetik5416[address] [place], [place] [address]Dr. Airam Tripathi Bilirubin [Mass/Vol] 0.2 mg/dL Normal 0.2-1.0 [facility] Comment on above: Performed By: #### C MP ####[facility] Sqrssvvogn023[address] [place], [place] [address]Dr. Airam Tripathi Calcium [Mass/Vol] 8.4 mg/dL Critically low 8.5-10.1 Th e [facility] Comment on above: Performed By: #### C MP ####[facility] F[address]dabgxps[address] [place], [place] [address]Dr. Airam Tripathi Chloride [Moles/Vol] 103 mmol/L Normal 98-107 [facility] Comment on above: Performed By: #### C MP ####[facility] Hjbusxxybi4156[address] [place], [place] [address]Dr. Airam Tripathi CO2 [Moles/Vol] 25.0 mmol/L Normal 21.0-32.0 [facility] Comment on above: Performed By: #### C MP ####[facility] Qnpeqhonle8[address] [place], [place] [address]Dr. Airam Tripathi Creatinine [Mass/Vol] 1.27 mg/dL Critically high 0.55-1.02 [facility] Comment on above: Performed By: #### C MP ####[facility] Mkjlebzsez[address] [place], [place] [address]Dr. Airam Tripathi EGFR-AF VENEZUELAN 52 mL/min/1.73m2 Critically low >=60 [facility] Comment on above: Performed By: #### C MP ####[facility] Evfrrreeqd3525[address] [place], [place] [address]Dr. Airam Tripathi EGFR-NON AF VENEZUELAN 43 mL/min/1.73m2 Critically low >=60 [facility] Comment on above: Performed By: #### C MP ####[facility] Tbvccroqwt[address] [place], [place] [address]Dr. Airam Tripathi Globulin (S) [Mass/Vol] 3.3 g/dL Normal [facility] Comment on above: Performed By: #### C MP ####[facility] Ebvkrgsynz4189[address] [place], [place] [address]Dr. Airam Tripathi Glucose [Mass/Vol] 90 mg/dL Normal 74-106 [facility] Comment on above: Performed By: #### C MP ####[facility] Umorklvqkc[address] [place], [place] [address]Dr. Airam Tripathi Potassium [Moles/Vol] 5.1 mmol/L Normal 3.5-5.1 [facility] Comment on above: Performed By: #### C MP ####[facility] Wx[address]zabagsa[address] [place] [address]Dr. Airam Tripathi Protein [Mass/Vol] 6.4 g/dL Normal 6.4-8.2 [facility] Comment on above: Performed By: #### C MP ####[facility] Fmmbnitqyd[address] [place] [address]Dr. Airam Tripathi Sodium [Moles/Vol] 134 mmol/L Critically low 136-145 [facility] Comment on above: Performed By: #### C MP ####[facility] Xtyjcbppah[address] [place], [place] [address]Dr. Airam Tripathi Urea nitrogen [Mass/Vol] 33.0 mg/dL Critically high 7.0-18.0 [facility] Comment on above: Performed By: #### C MP ####[facility] Jovwnwblbw[address] [place], [place] [address]Dr. Airam Tripathi Urea nitrogen/Creatinine [Mass ratio] 26.0 mg/mg Normal [facility] Comment on above: Performed By: #### C MP ####[facility] [address]dnfkgcfjz[address] [place], [place] [address]Dr. Airam Tripathi OSMOLALITYon 10-15-2022 Osmolality [Osmolality] 272 mosm/kg Critically low 275-295 [facility] Comment on above: Performed By: #### O SMO ####[facility] Itedfexjvc9[address] [place], [place] [address]Dr. Airam Tripathi 36on 10-12-2022 36 Can you get the henry ining labs please Normal [facility] 36 [facility]H lab called to re port critical BNP of 1,337. FYI Normal [facility] BNPon 10-12-2022 Natriuretic peptide B (Bld) [Mass/Vol] 1337.0 pg/mL Critically high <=900.0 [facility] Comment on above: Performed By: #### B [employer] ####[facility] Sw[address]ljfrv[address] [place] [address]Dr. Airam Tripathi CBC AUTO DIFFon 10-12-2022 BASO # 0.0 103/ul Normal 0.0-0.1 [facility] Comment on above: Performed By: #### C BC ####[facility] [address]axqmmkzkr[address] [place], [place] [address]Dr. Airam Tripathi Basophils/100 WBC (Bld) 0.6 % Normal 0.2-2.0 [facility] Comment on above: Performed By: #### C BC ####[facility] [address]ixpypqtc[address] [place], [place] [address]Dr. Airam Tripathi EO # 0.2 103/ul Normal 0.0-0.7 [facility] Comment on above: Performed By: #### C BC ####[facility] [address]ffqyftxyy[address] [place], [place] [address]Dr. Selenaneil Tripathi Eosinophils/100 WBC (Bld) 2.3 % Normal 0.9-7.0 [facility] Comment on above: Performed By: #### C BC ####[facility] [address]fchhq[address] [place], [place] [address]Dr. Airam Tripathi Erythrocyte distribution width (RBC) [Ratio] 15.1 % Critically high 11.0-15.0 [facility] Comment on above: Performed By: #### C BC ####[facility] [address]hvepov[address] [place], [place] [address]Dr. Airam Tripathi Hematocrit (Bld) [Volume fraction] 35.9 % Critically low 36.0-48.0 [facility] Comment on above: Performed By: #### C BC ####[facility] [address]zqutarjdz[address] [place], [place] [address]Dr. Selenaneil Tripathi Hemoglobin (Bld) [Mass/Vol] 11.4 g/dL Critically low 12.0-16.0 [facility] Comment on above: Performed By: #### C BC ####[facility] [address]odvrmmd[address] [place], [place] [address]Dr. Airam Tripathi IG # 0.03 10e3/ul Normal 0.00-0.03 [facility] Comment on above: Performed By: #### C BC ####[facility] [address]hb[address]du[address] [place] [id number]. Airam Tripathi IG % 0.5 % Normal 0.0-0.5 [facility] Comment on above: Performed By: #### C BC ####[facility] Btmgwmdmoy[address] [place] [id number]. Airam Tripathi LYMPH # 1.1 103/ul Critically low 1.2-3.8 [facility] Comment on above: Performed By: #### C BC ####[facility] Nykrzboqpe[address] [place] [id number]. Airam Tripathi Lymphocytes/100 WBC (Bld) 17.2 % Critically low 20.5-60.0 [facility] Comment on above: Performed By: #### C BC ####[facility] Drctjttvub[address] [place] [address]Dr. Airam Tripathi MANUAL DIFF REQ NO Normal [facility] Comment on above: Performed By: #### C BC ####[facility] [address]przdwo[address] [place], [place] [id number]. Airam Tripathi MCH (RBC) [Entitic mass] 28.8 pg Normal 26.7-34.0 [facility] Comment on above: Performed By: #### C BC ####[facility] Cmrrdcimrs[address] [place] [id number]. Airam Tripathi MCHC (RBC) [Mass/Vol] 31.8 g/dL Normal 29.9-35.2 [facility] Comment on above: Performed By: #### C BC ####[facility] [address]bzlffctkq[address] [place] [id number]. Airam Tripathi MCV (RBC) [Entitic vol] 90.7 fL Normal 81.0-99.0 [facility] Comment on above: Performed By: #### C BC ####[facility] Fonjnmbtyy[address] [place] [id number]. Airam Deuce MONO # 0.5 103/ul Normal 0.3-0.8 [facility] Comment on above: Performed By: #### C BC ####[facility] [address]chregojwe[address] [place] [id number]. Airam Tripathi Monocytes/100 WBC (Bld) 7.7 % Normal 1.7-12.0 [facility] Comment on above: Performed By: #### C BC ####[facility] Oiuowmxdlw[address] [place] [id number]. Airam Tripathi NEUT # 4.7 103/ul Normal 1.4-6.5 [facility] Comment on above: Performed By: #### C BC ####[facility] Bqfvqlvltc[address] [place] [id number]. Airam Tripathi Neutrophils/100 WBC (Bld) 71.7 % Normal 43.0-75.0 [facility] Comment on above: Performed By: #### C BC ####[facility] Smjlugmeqe[address] [place] [address]Dr. Airam Tripathi Platelet mean volume (Bld) [Entitic vol] 8.2 fL Critically low 9.5-13.5 [facility] Comment on above: Performed By: #### C BC ####[facility] Nhpihastfq[address] [place] [address]Dr. Airam Tripathi PLT 292 103/ul Normal 150-450 [facility] Comment on above: Performed By: #### C BC ####[facility] Uesfasgtme70[address] [place] [phone]. Airam Tripathi RBC 3.96 106/ul Critically low 4.20-5.40 [facility] Comment on above: Performed By: #### C BC ####[facility] D[address]wdsnv[address] [place], [place] [id number]. Airam Tripathi WBC 6.6 103/ul Normal 4.0-11.0 [facility] Comment on above: Performed By: #### C BC ####[facility] Droisirvyr[address] [place], [place] [address]Dr. Airam Tripathi PROF 14(COMP METB)on 023 Albumin [Mass/Vol] 3.3 g/dL Critically low 3.4-5.0 [facility] Comment on above: Performed By: #### C MP ####[facility] Wjvasskapg[address] [place] [address]Dr. Airam Deuce Albumin/Globulin [Mass ratio] 0.9 {ratio} Normal [facility] Comment on above: Performed By: #### C MP ####[facility] Tsjzfwwdjh[address] [place] [address]Dr. Airam Deuce ALP [Catalytic activity/Vol] 130 U/L Critically high 46-116 [facility] Comment on above: Performed By: #### C MP ####[facility] Wcdgfgfvhw27[address] [place] [address]Dr. Airam Deuce ALT [Catalytic activity/Vol] 23 U/L Normal 14-59 [facility] Comment on above: Performed By: #### C MP ####[facility] Arpzehnjfz[address] [place], [place] [address]Dr. Airam Tripathi Anion gap [Moles/Vol] 11.7 mmol/L Normal [facility] Comment on above: Performed By: #### C MP ####[facility] Xgbcfmmdlz[address] [place], [place] [address]Dr. Airam Deuce AST [Catalytic activity/Vol] 23 U/L Normal 15-37 [facility] Comment on above: Performed By: #### C MP ####[facility] Fsmakjehjk[address] [place], [place] [address]Dr. Selenaneil Deuce Bilirubin [Mass/Vol] 0.3 mg/dL Normal 0.2-1.0 [facility] Comment on above: Performed By: #### C MP ####[facility] Urlqyziixa[address] [place], [place] [address]Dr. Airam Tripathi Calcium [Mass/Vol] 8.7 mg/dL Normal 8.5-10.1 [facility] Comment on above: Performed By: #### C MP ####[facility] Bpgxoykgsp[address] [place], [place] [address]Dr. Airam Tripathi Chloride [Moles/Vol] 99 mmol/L Normal 98-107 [facility] Comment on above: Performed By: #### C MP ####[facility] Vylobcvwnl6[address] [place] [phone]. Airam Tripathi CO2 [Moles/Vol] 28.5 mmol/L Normal 21.0-32.0 [facility] Comment on above: Performed By: #### C MP ####[facility] Kpyyfhpsmu4[address] [place] [phone]. Airam Tripathi Creatinine [Mass/Vol] 1.06 mg/dL Critically high 0.55-1.02 [facility] Comment on above: Performed By: #### C MP ####[facility] Aextynenof7416 [place] [phone]. Airam Tripathi EGFR-AF VENEZUELAN >60 Normal >=60 [facility] Comment on above: Performed By: #### C MP ####[facility] Vnkutjghbp6[address] [place] [address]Dr. Airam Tripathi EGFR-NON AF VENEZUELAN 53 mL/min/1.73m2 Critically low >=60 [facility] Comment on above: Performed By: #### C MP ####[facility] Xvuftyxhyy9[address] [place] [address]Dr. Airam Tripathi Globulin (S) [Mass/Vol] 3.5 g/dL Normal [facility] Comment on above: Performed By: #### C MP ####[facility] Zcgkfxfgvn7[address] [place] [address]Dr. Airam Tripathi Glucose [Mass/Vol] 79 mg/dL Normal 74-106 [facility] Comment on above: Performed By: #### C MP ####[facility] Mnpsdbyfeh40[address] [place] [address]Dr. Airam Tripathi Potassium [Moles/Vol] 4.2 mmol/L Normal 3.5-5.1 [facility] Comment on above: Performed By: #### C MP ####[facility] Gzsafjkktw6[address] [place] [address]Dr. Airam Tripathi Protein [Mass/Vol] 6.8 g/dL Normal 6.4-8.2 [facility] Comment on above: Performed By: #### C MP ####[facility] Bjmthyonbt4[address] [place] [address]Dr. Airam Tripathi Sodium [Moles/Vol] 135 mmol/L Critically low 136-145 [facility] Comment on above: Performed By: #### C MP ####[facility] Fjdpzhxque88[address] [place] [address]Dr. Airam Tripathi Urea nitrogen [Mass/Vol] 16.0 mg/dL Normal 7.0-18.0 [facility] Comment on above: Performed By: #### C MP ####[facility] Mlqanlnwyj99[address] [place] [address]Dr. Airam Tripathi Urea nitrogen/Creatinine [Mass ratio] 15.1 mg/mg Normal [facility] Comment on above: Performed By: #### C MP ####[facility] [address]tvmtlkbl[address] [place], [place] [address]Dr. Airam Tripathi XR CHEST 1 Von 10-12-2022 XR CHEST 1 V Normal [facility] Office Visiton 10-10-2022 Follow-up visit [id number] Loren Moser 1960 F Date Provider Department Center 10/10/2022 ZANDRA [facility] No family history on file Level of Service:82150 [place] OFFICE/OUTPATIENT ESTABLISHED MOD MDM 30-39 MIN Reason for Visit and Comments: Congestive Heart Failure [127] Re-establish care [Other] Normal [facility] PRBC LEUKOREDUCEDon 10-10-19 23 PRBC LEUKOREDUCED Normal [facility] Comment on above: Performed By: #### P RBC ####[facility] Ruqquntrka[address] [place] [address]Dr. Airam Tripathi CULTURE URINEon 10-08-2022 CULTURE URINE Normal [facility] Comment on above: Performed By: #### U RCX ####[facility] Pmzptvcmkp75[address] [place] [address]Dr. Airam Tripathi OSMOLALITYon 10-08-2022 Osmolality [Osmolality] 282 mosm/kg Normal 275-295 [facility] Comment on above: Performed By: #### O SMO ####[facility] [address]qkznocvo[address] [place], [place] [address]Dr. Airam Tripathi CBC AUTO DIFFon 10-07-2022 BASO # 0.0 103/ul Normal 0.0-0.1 [facility] Comment on above: Performed By: #### C BC ####[facility] Jrygtdaagr2[address] [place] [address]Dr. Airam Tripathi Basophils/100 WBC (Bld) 0.3 % Normal 0.2-2.0 [facility] Comment on above: Performed By: #### C BC ####[facility] Lohlqnpapu[address] [place] [address]Dr. Airam Tripathi EO # 0.2 103/ul Normal 0.0-0.7 [facility] Comment on above: Performed By: #### C BC ####[facility] Mbwqcxiamv037[address] [place] [address]Dr. Airam Deuce Eosinophils/100 WBC (Bld) 3.4 % Normal 0.9-7.0 [facility] Comment on above: Performed By: #### C BC ####[facility] Nbmyfdsvbj2[address] [place] [address]Dr. Airam Tripathi Erythrocyte distribution width (RBC) [Ratio] 15.2 % Critically high 11.0-15.0 [facility] Comment on above: Performed By: #### C BC ####[facility] Mvjqbojusa17[address] [place] [address]Dr. Airam Tripathi Hematocrit (Bld) [Volume fraction] 31.3 % Critically low 36.0-48.0 [facility] Comment on above: Performed By: #### C BC ####[facility] Gvkqcqxozk8[address] [place] [address]Dr. Airam Tripathi Hemoglobin (Bld) [Mass/Vol] 9.9 g/dL Critically low 12.0-16.0 [facility] Comment on above: Performed By: #### C BC ####[facility] Gciwpntoun[address] [place] [address]Dr. Airam Deuce IG # 0.03 10e3/ul Normal 0.00-0.03 [facility] Comment on above: Performed By: #### C BC ####[facility] Putayibdeq6[address] [place] [id number]. Airam Tripathi IG % 0.4 % Normal 0.0-0.5 [facility] Comment on above: Performed By: #### C BC ####[facility] Jwcbckfsjh5301 [place] [phone]. Airam Tripathi LYMPH # 1.3 103/ul Normal 1.2-3.8 [facility] Comment on above: Performed By: #### C BC ####[facility] Mgefeguypw7071 [place] [phone]. Airam Tripathi Lymphocytes/100 WBC (Bld) 19.0 % Critically low 20.5-60.0 [facility] Comment on above: Performed By: #### C BC ####[facility] Eeczqiykzr[address] [place] [phone]. Airam Tripathi MANUAL DIFF REQ NO Normal [facility] Comment on above: Performed By: #### C BC ####[facility] Yogtbcnahq6689 [place] [phone]. Airam Tripathi MCH (RBC) [Entitic mass] 28.1 pg Normal 26.7-34.0 [facility] Comment on above: Performed By: #### C BC ####[facility] Ffvecyapwf0822 [place] [phone]. Airam Tripathi MCHC (RBC) [Mass/Vol] 31.6 g/dL Normal 29.9-35.2 [facility] Comment on above: Performed By: #### C BC ####[facility] Tcrgfmiyds8848 [place] [phone]. Airam Tripathi MCV (RBC) [Entitic vol] 88.9 fL Normal 81.0-99.0 [facility] Comment on above: Performed By: #### C BC ####[facility] Hktdvguggk2414 [place] [phone]. Airam Tripathi MONO # 0.6 103/ul Normal 0.3-0.8 [facility] Comment on above: Performed By: #### C BC ####[facility] Jppbulumuy4389 [place] [phone]. Airam Tripathi Monocytes/100 WBC (Bld) 9.0 % Normal 1.7-12.0 [facility] Comment on above: Performed By: #### C BC ####[facility] Fvnzmeqyfg3712 [place] [phone]. Airam Tripathi NEUT # 4.5 103/ul Normal 1.4-6.5 [facility] Comment on above: Performed By: #### C BC ####[facility] Hfoaeswwmc0677 [place] [phone]. Airam Tripathi Neutrophils/100 WBC (Bld) 67.9 % Normal 43.0-75.0 [facility] Comment on above: Performed By: #### C BC ####[facility] Vifjmdqebq4[address] [place] [address]Dr. Airam Tripathi Platelet mean volume (Bld) [Entitic vol] 9.1 fL Critically low 9.5-13.5 [facility] Comment on above: Performed By: #### C BC ####[facility] Flbxzdtupu49[address] [place] [address]Dr. Airam Tripathi PLT 256 103/ul Normal 150-450 [facility] Comment on above: Performed By: #### C BC ####[facility] Ubepxbdvsn6059 [place] [phone]. Airam Tripathi RBC 3.52 106/ul Critically low 4.20-5.40 [facility] Comment on above: Performed By: #### C BC ####[facility] Tsp[address]axxamf[address] [place] [address]Dr. Airam Tripathi WBC 6.7 103/ul Normal 4.0-11.0 [facility] Comment on above: Performed By: #### C BC ####[facility] Ltxdybxwql6212 [place] [address]DrKianna Airam Tripathi PROF 14(COMP METB)on 023 Albumin [Mass/Vol] 2.8 g/dL Critically low 3.4-5.0 [facility] Comment on above: Performed By: #### C MP ####[facility] Oefdszogel4264 [place] [phone]. Airam Tripathi Albumin/Globulin [Mass ratio] 0.9 {ratio} Normal [facility] Comment on above: Performed By: #### C MP ####[facility] Kmiaghfxht4460 [place] [phone]. Airam Tripathi ALP [Catalytic activity/Vol] 118 U/L Critically high 46-116 [facility] Comment on above: Performed By: #### C MP ####[facility] Dmmetzlliq6876 [place] [address]Dr. Airam Deuce ALT [Catalytic activity/Vol] 23 U/L Normal 14-59 [facility] Comment on above: Performed By: #### C MP ####[facility] Biaqcogojq[address] [place], [place] [address]Dr. Selenaneil Deuce Anion gap [Moles/Vol] 12.5 mmol/L Normal [facility] Comment on above: Performed By: #### C MP ####[facility] Cyltqemrao[address] [place], [place] [address]Dr. Airam Deuce AST [Catalytic activity/Vol] 21 U/L Normal 15-37 [facility] Comment on above: Performed By: #### C MP ####[facility] Dgpallxlxo[address] [place], [place] [address]Dr. Airam Deuce Bilirubin [Mass/Vol] 0.4 mg/dL Normal 0.2-1.0 [facility] Comment on above: Performed By: #### C MP ####[facility] Tmyvmgmnra14[address] [place] [address]Dr. Airam Deuce Calcium [Mass/Vol] 8.2 mg/dL Critically low 8.5-10.1 [facility] Comment on above: Performed By: #### C MP ####[facility] Aedigydlsx50[address] [place], [place] [address]Dr. Airam Tripathi Chloride [Moles/Vol] 99 mmol/L Normal 98-107 [facility] Comment on above: Performed By: #### C MP ####[facility] Flxtipozxe65[address] [place] [address]Dr. Airam Tripathi CO2 [Moles/Vol] 24.9 mmol/L Normal 21.0-32.0 [facility] Comment on above: Performed By: #### C MP ####[facility] Ldfgvaxnmh7939 [place] [address]Dr. Airam Tripathi Creatinine [Mass/Vol] 1.61 mg/dL Critically high 0.55-1.02 [facility] Comment on above: Performed By: #### C MP ####[facility] Sunjkfexwg08[address] [place], [place] [address]Dr. Airam Tripathi EGFR-AF VENEZUELAN 40 mL/min/1.73m2 Critically low >=60 [facility] Comment on above: Performed By: #### C MP ####[facility] Lsgwecsqwi[address] [place], [place] [address]Dr. Airam Tripathi EGFR-NON AF VENEZUELAN 33 mL/min/1.73m2 Critically low >=60 [facility] Comment on above: Performed By: #### C MP ####[facility] Wtuxbeibos0000[address] [place], [place] [address]Dr. Airam Tripathi Globulin (S) [Mass/Vol] 3.2 g/dL Normal [facility] Comment on above: Performed By: #### C MP ####[facility] Lwlrrxnsjx0316[address] [place], [place] [address]Dr. Airam Tripathi Glucose [Mass/Vol] 67 mg/dL Critically low 74-106 Th [facility] Comment on above: Performed By: #### C MP ####[facility] Zattokkvfk0[address] [place], [place] [address]Dr. Airam Tripathi Potassium [Moles/Vol] 5.4 mmol/L Critically high 3.5-5.1 [facility] Comment on above: Performed By: #### C MP ####[facility] Yjsteblibb[address] [place], [place] [address]Dr. Airam Tripathi Protein [Mass/Vol] 6.0 g/dL Critically low 6.4-8.2 [facility] Comment on above: Performed By: #### C MP ####[facility] Kpjdmyzypt1582 [place] [phone]. Airam Tripathi Sodium [Moles/Vol] 131 mmol/L Critically low 136-145 Th e [facility] Comment on above: Performed By: #### C MP ####[facility] Faigjmuxvy14[address] [place], [place] [address]Dr. Airam Tirpathi Urea nitrogen [Mass/Vol] 43.0 mg/dL Critically high 7.0-18.0 [facility] Comment on above: Performed By: #### C MP ####[facility] Whmczxmxat04[address] [place], [place] [address]Dr. Airam Tripathi Urea nitrogen/Creatinine [Mass ratio] 26.7 mg/mg Normal [facility] Comment on above: Performed By: #### C MP ####[facility] Zxsgzbbfog34[address] [place], [place] [address]Dr. Airam Tripathi CBC AUTO DIFFon 10-06-2022 BASO # 0.0 103/ul Normal 0.0-0.1 [facility] Comment on above: Performed By: #### C BC ####[facility] [address]dbfqglfnz20[address] [place], [place] [address]Dr. Airam Tripathi Basophils/100 WBC (Bld) 0.3 % Normal 0.2-2.0 [facility] Comment on above: Performed By: #### C BC ####[facility] Umrxxkpoci30[address] [place], [place] [address]Dr. Airam Tripathi EO # 0.2 103/ul Normal 0.0-0.7 [facility] Comment on above: Performed By: #### C BC ####[facility] Jjjvmvunmz[address] [place], [place] [address]Dr. Airam Tripathi Eosinophils/100 WBC (Bld) 3.1 % Normal 0.9-7.0 [facility] Comment on above: Performed By: #### C BC ####[facility] Ifpdbxfqav9[address] [place], [place] [address]Dr. Airam Tripathi Erythrocyte distribution width (RBC) [Ratio] 15.0 % Normal 11.0-15.0 [facility] Comment on above: Performed By: #### C BC ####[facility] Yrqtwhjglh7262 [place] [address]Dr. Airam Tripathi Hematocrit (Bld) [Volume fraction] 30.9 % Critically low 36.0-48.0 [facility] Comment on above: Performed By: #### C BC ####[facility] Vsblnxpmaf8275 [place] [address]Dr. Airam Tripathi Hemoglobin (Bld) [Mass/Vol] 10.1 g/dL Critically low 12.0-16.0 [facility] Comment on above: Result Comment: BIJU ENT RECIEVED 2 UNITS PRBC'S Performed By: #### C BC ####[facility] Awsypiqyez00[address] [place], [place] [address]Dr. Airam Tripathi IG # 0.03 10e3/ul Normal 0.00-0.03 [facility] Comment on above: Performed By: #### C BC ####[facility] Cnwbjoumzw[address] [place], [place] [address]Dr. Airam Tripathi IG % 0.4 % Normal 0.0-0.5 [facility] Comment on above: Performed By: #### C BC ####[facility] Hccgilduxw[address] [place], [place] [address]Dr. Airam Tripathi LYMPH # 1.1 103/ul Critically low 1.2-3.8 [facility] Comment on above: Performed By: #### C BC ####[facility] Oacyxcywdj38[address] [place], [place] [address]Dr. Airam Tripathi Lymphocytes/100 WBC (Bld) 14.4 % Critically low 20.5-60.0 [facility] Comment on above: Performed By: #### C BC ####[facility] Kzjbguovct[address] [place], [place] [address]Dr. Airam Tripathi MANUAL DIFF REQ NO Normal [facility] Comment on above: Performed By: #### C BC ####[facility] Jjqfdhyure5266[address] [place], [place] [address]Dr. Airam Tripathi MCH (RBC) [Entitic mass] 28.9 pg Normal 26.7-34.0 [facility] Comment on above: Performed By: #### C BC ####[facility] Evjemaahmk4652 [place] [id number]. Airam Deuce MCHC (RBC) [Mass/Vol] 32.7 g/dL Normal 29.9-35.2 [facility] Comment on above: Performed By: #### C BC ####[facility] Elptbpiyyv8241 [place] [id number] Tripathi MCV (RBC) [Entitic vol] 88.3 fL Normal 81.0-99.0 [facility] Comment on above: Performed By: #### C BC ####[facility] Yscplsehev[address] [place], [place] [address]DrKianna Tripathi MONO # 0.6 103/ul Normal 0.3-0.8 [facility] Comment on above: Performed By: #### C BC ####[facility] Cmzryfldeb97[address] [place], [place] [address]Dr. Airam Tripathi Monocytes/100 WBC (Bld) 7.8 % Normal 1.7-12.0 [facility] Comment on above: Performed By: #### C BC ####[facility] [address]daqileiqv[address] [place], [place] [address]Dr. Airam Tripathi NEUT # 5.5 103/ul Normal 1.4-6.5 [facility] Comment on above: Performed By: #### C BC ####[facility] Jvzdbbzuag82[address] [place], [place] [address]Dr. Airam Tripathi Neutrophils/100 WBC (Bld) 74.0 % Normal 43.0-75.0 [facility] Comment on above: Performed By: #### C BC ####[facility] Bishtkymwd[address] [place], [place] [address]DrKianna Tripathi Platelet mean volume (Bld) [Entitic vol] 9.2 fL Critically low 9.5-13.5 [facility] Comment on above: Performed By: #### C BC ####[facility] Vvubeuuybu[address] [place], [place] [address]DrKianna Tripathi PLT 275 103/ul Normal 150-450 [facility] Comment on above: Performed By: #### C BC ####[facility] Tmumqzbvtl5435 [place] [id number]. Airam Tripathi RBC 3.50 106/ul Critically low 4.20-5.40 [facility] Comment on above: Performed By: #### C BC ####[facility] Hetblkfmhy4109 [place] [phone]. Airam Deuce WBC 7.4 103/ul Normal 4.0-11.0 [facility] Comment on above: Performed By: #### C BC ####[facility] Qnapssgjnq6154 [place] [phone]. Airam Tripathi BASO # 0.0 103/ul Normal 0.0-0.1 [facility] Comment on above: Performed By: #### C BC ####[facility] Olczwttuyx5855 [place] [phone]. Airam Tripathi Basophils/100 WBC (Bld) 0.4 % Normal 0.2-2.0 [facility] Comment on above: Performed By: #### C BC ####[facility] Jawpcxfuza5475 [place] [phone]. Airam Tripathi EO # 0.2 103/ul Normal 0.0-0.7 [facility] Comment on above: Performed By: #### C BC ####[facility] Ifurpglfiq3468 [place] [phone]. Selenaneil Tripathi Eosinophils/100 WBC (Bld) 4.5 % Normal 0.9-7.0 [facility] Comment on above: Performed By: #### C BC ####[facility] Yualaiwtbw3893 [place] [phone]. Airam Tripathi Erythrocyte distribution width (RBC) [Ratio] 15.1 % Critically high 11.0-15.0 [facility] Comment on above: Performed By: #### C BC ####[facility] Mvkdiclgqk2280 [place] [phone]. Selenaneil Tripathi Hematocrit (Bld) [Volume fraction] 23.0 % Critically low 36.0-48.0 [facility] Comment on above: Performed By: #### C BC ####[facility] Fwfpngvjra4535 [place] [address]Dr. Airam Tripathi Hemoglobin (Bld) [Mass/Vol] 7.2 g/dL Critically low 12.0-16.0 [facility] Comment on above: Performed By: #### C BC ####[facility] Anwfmovgko0504 [place] [address]Dr. Airam Tripathi IG # 0.02 10e3/ul Normal 0.00-0.03 [facility] Comment on above: Performed By: #### C BC ####[facility] Gaazsolihg[address] [place], [place] [address]Dr. Airam Tripathi IG % 0.4 % Normal 0.0-0.5 [facility] Comment on above: Performed By: #### C BC ####[facility] Arkdvdmnik[address] [place], [place] [address]Dr. Airam Tripathi LYMPH # 1.0 103/ul Critically low 1.2-3.8 [facility] Comment on above: Performed By: #### C BC ####[facility] Vhrurkthmp[address] [place], [place] [address]Dr. Airam Tripathi Lymphocytes/100 WBC (Bld) 22.5 % Normal 20.5-60.0 [facility] Comment on above: Performed By: #### C BC ####[facility] Zagqdzmdrq40[address] [place], [place] [address]Dr. Airam Tripathi MANUAL DIFF REQ NO Normal [facility] Comment on above: Performed By: #### C BC ####[facility] Pnouecouxl[address] [place], [place] [address]Dr. Airam Tripathi MCH (RBC) [Entitic mass] 28.3 pg Normal 26.7-34.0 [facility] Comment on above: Performed By: #### C BC ####[facility] [address]xjzax[address] [place], [place] [address]Dr. Airam Tripathi MCHC (RBC) [Mass/Vol] 31.3 g/dL Normal 29.9-35.2 [facility] Comment on above: Performed By: #### C BC ####[facility] Kmfgucggra[address] [place] [id number]. Airam Tripathi MCV (RBC) [Entitic vol] 90.6 fL Normal 81.0-99.0 [facility] Comment on above: Performed By: #### C BC ####[facility] Rjkimrlgjo45[address] [place] [id number]. Airam Tripathi MONO # 0.5 103/ul Normal 0.3-0.8 [facility] Comment on above: Performed By: #### C BC ####[facility] Ygvdvdcyhq5286 [place] [phone]. Airam Deuce Monocytes/100 WBC (Bld) 9.7 % Normal 1.7-12.0 [facility] Comment on above: Performed By: #### C BC ####[facility] Tcvsxvr[address] [place], [place] [address]Dr. Airam Tripathi NEUT # 2.9 103/ul Normal 1.4-6.5 [facility] Comment on above: Performed By: #### C BC ####[facility] [address] [place], [place] [id number]. Airam Deuce Neutrophils/100 WBC (Bld) 62.5 % Normal 43.0-75.0 [facility] Comment on above: Performed By: #### C BC ####[facility] Pvkplbpxso[address] [place], [place] [id number]. Airam Deuce Platelet mean volume (Bld) [Entitic vol] 8.9 fL Critically low 9.5-13.5 [facility] Comment on above: Performed By: #### C BC ####[facility] Uqushzvjyn45[address] [place] [id number]. Airam Deuce PLT 210 103/ul Normal 150-450 [facility] Comment on above: Performed By: #### C BC ####[facility] Aahupucoqa4863 [place] [phone]. Airam Tripathi RBC 2.54 106/ul Critically low 4.20-5.40 [facility] Comment on above: Performed By: #### C BC ####[facility] Ypblfxaaml[address] [place] [address]Dr. Selenaneil Deuce WBC 4.6 103/ul Normal 4.0-11.0 [facility] Comment on above: Performed By: #### C BC ####[facility] Xjrfjfyzrm1434 [place] [phone]. Selenaneil Deuce OSMOLALITYon 10-06-2022 Osmolality [Osmolality] 279 mosm/kg Normal 275-295 [facility] Comment on above: Performed By: #### O SMO ####[facility] Unegivdxge[address] [place] [address]Dr. Airam Tripathi POINT OF CARE GLUCOSEon 09-24 Glucose [Mass/Vol] 72 mg/dL Critically low 74-106 [facility] Comment on above: Performed By: #### P OCGLUC ####[facility] Egsstxctyz[address] [place], [place] [address]Dr. Airam Tripathi Glucose [Mass/Vol] 102 mg/dL Normal 74-106 [facility] Comment on above: Performed By: #### P OCGLUC ####[facility] Nzomuberkt7[address] [place] [address]Dr. Airam Tripathi Glucose [Mass/Vol] 165 mg/dL Critically high 74-106 [facility] Comment on above: Performed By: #### P OCGLUC ####[facility] Xoqmvbwztd32[address] [place] [address]Dr. Ariam Tripathi PROF 14(COMP METB)on 023 Albumin [Mass/Vol] 2.6 g/dL Critically low 3.4-5.0 [facility] Comment on above: Performed By: #### C MP ####[facility] [address]uxmnnnknq[address] [place], [place] [address]Dr. Airam Tripathi Albumin/Globulin [Mass ratio] 0.9 {ratio} Normal [facility] Comment on above: Performed By: #### C MP ####[facility] Nturrgruqc[address] [place] [address]Dr. Airam Tripathi ALP [Catalytic activity/Vol] 107 U/L Normal 46-116 [facility] Comment on above: Performed By: #### C MP ####[facility] Ghyycawgxn4[address] [place] [phone]. Airam Tripathi ALT [Catalytic activity/Vol] 22 U/L Normal 14-59 [facility] Comment on above: Performed By: #### C MP ####[facility] Vzhvxdpinr1316 [place] [phone]. Airam Tripathi Anion gap [Moles/Vol] 10.0 mmol/L Normal Th [facility] Comment on above: Performed By: #### C MP ####[facility] Isaqzscpnb7909 [place] [phone]. Airam Tripathi AST [Catalytic activity/Vol] 19 U/L Normal 15-37 [facility] Comment on above: Performed By: #### C MP ####[facility] Svqtdokwsl0444 [place] [address]Dr. Airam Deuce Bilirubin [Mass/Vol] 0.2 mg/dL Normal 0.2-1.0 [facility] Comment on above: Performed By: #### C MP ####[facility] Welcxtypyv6126 [place] [phone]. Airam Deuce Calcium [Mass/Vol] 8.1 mg/dL Critically low 8.5-10.1 [facility] Comment on above: Performed By: #### C MP ####[facility] Nrpnizejwi8531 [place] [phone]. Airam Deuce Chloride [Moles/Vol] 100 mmol/L Normal 98-107 [facility] Comment on above: Performed By: #### C MP ####[facility] Sfmnvfchfr4322 [place] [phone]. Airam Deuce CO2 [Moles/Vol] 26.2 mmol/L Normal 21.0-32.0 [facility] Comment on above: Performed By: #### C MP ####[facility] Mzkzsvisfp7053 [place] [phone]. Selenaneil Tripathi Creatinine [Mass/Vol] 1.90 mg/dL Critically high 0.55-1.02 [facility] Comment on above: Performed By: #### C MP ####[facility] Stdjbkteym5[address] [place] [phone]. Airam Tripathi EGFR-AF VENEZUELAN 33 mL/min/1.73m2 Critically low >=60 [facility] Comment on above: Performed By: #### C MP ####[facility] Guintgbsai9[address] [place] [phone]. Airam Tripathi EGFR-NON AF VENEZUELAN 27 mL/min/1.73m2 Critically low >=60 [facility] Comment on above: Performed By: #### C MP ####[facility] Mgcjpmbptz6712 [place] [phone]. Airam Deuce Globulin (S) [Mass/Vol] 2.8 g/dL Normal [facility] Comment on above: Performed By: #### C MP ####[facility] Bseaecsglh11[address] [place] [address]Dr. Airam Tripathi Glucose [Mass/Vol] 115 mg/dL Critically high 74-106 T [facility] Comment on above: Performed By: #### C MP ####[facility] Ympwoqlpjs8105 [place] [phone]. Airam Deuce Potassium [Moles/Vol] 5.2 mmol/L Critically high 3.5-5.1 [facility] Comment on above: Performed By: #### C MP ####[facility] Fxwqdwxrwh4744 [place] [phone]. Airam Tripathi Protein [Mass/Vol] 5.4 g/dL Critically low 6.4-8.2 Th [facility] Comment on above: Performed By: #### C MP ####[facility] Xcovygonhc7665 [place] [phone]. Airam Tripathi Sodium [Moles/Vol] 131 mmol/L Critically low 136-145 Th [facility] Comment on above: Performed By: #### C MP ####[facility] Frpiazgqft7871 [place] [phone]. Airam Decue Urea nitrogen [Mass/Vol] 41.0 mg/dL Critically high 7.0-18.0 [facility] Comment on above: Performed By: #### C MP ####[facility] [address]gjnlvhmos[address] [place], [place] [address]Dr. Airam Deuce Urea nitrogen/Creatinine [Mass ratio] 21.6 mg/mg Normal [facility] Comment on above: Performed By: #### C MP ####[facility] Uwjjypooox[address] [place], [place] [address]Dr. Airam Tripathi TYPE AND SCREENon 10-06-2022 TYPE AND SCREEN Negative Normal [facility] Comment on above: Performed By: #### T NS ####[facility] Bkninlpjfi[address] [place], [place] [address]Dr. Airam Tripathi CBC AUTO DIFFon 10-05-2022 BASO # 0.0 103/ul Normal 0.0-0.1 [facility] Comment on above: Performed By: #### C BC ####[facility] Chkoafrwrc[address] [place], [place] [address]Dr. Airam Tripathi Basophils/100 WBC (Bld) 0.5 % Normal 0.2-2.0 [facility] Comment on above: Performed By: #### C BC ####[facility] Plhonzezcf[address] [place], [place] [address]Dr. Selenaneil Tripathi EO # 0.2 103/ul Normal 0.0-0.7 [facility] Comment on above: Performed By: #### C BC ####[facility] Ovricygdaw[address] [place], [place] [address]Dr. Airam Tripathi Eosinophils/100 WBC (Bld) 3.2 % Normal 0.9-7.0 [facility] Comment on above: Performed By: #### C BC ####[facility] Hdcfqodipg[address] [place], [place] [address]Dr. Airam Tripathi Erythrocyte distribution width (RBC) [Ratio] 15.2 % Critically high 11.0-15.0 [facility] Comment on above: Performed By: #### C BC ####[facility] Dfmpjxhkuk[address] [place], [place] [address]Dr. Airam Tripathi Hematocrit (Bld) [Volume fraction] 24.7 % Critically low 36.0-48.0 [facility] Comment on above: Performed By: #### C BC ####[facility] Xkelucqxbe5536 [place] [address]DrKianna Tripathi Hemoglobin (Bld) [Mass/Vol] 7.6 g/dL Critically low 12.0-16.0 [facility] Comment on above: Performed By: #### C BC ####[facility] Arwbaxlyrw[address] [place], [place] [address]DrKianna Tripathi IG # 0.02 10e3/ul Normal 0.00-0.03 [facility] Comment on above: Performed By: #### C BC ####[facility] Vjgrfcdnwc[address] [place], [place] [address]DrKianna Tripathi IG % 0.3 % Normal 0.0-0.5 [facility] Comment on above: Performed By: #### C BC ####[facility] Goiarsynmx[address] [place], [place] [address]DrKianna Tripathi LYMPH # 1.1 103/ul Critically low 1.2-3.8 [facility] Comment on above: Performed By: #### C BC ####[facility] Wozmbblfgm[address] [place], [place] [address]DrKianna Tripathi Lymphocytes/100 WBC (Bld) 18.4 % Critically low 20.5-60.0 [facility] Comment on above: Performed By: #### C BC ####[facility] Ffhhpjwhyn[address] [place], [place] [address]DrKianna Tripathi MANUAL DIFF REQ NO Normal [facility] Comment on above: Performed By: #### C BC ####[facility] Lpsqagepje[address] [place], [place] [address]DrKianna Tripathi MCH (RBC) [Entitic mass] 28.5 pg Normal 26.7-34.0 [facility] Comment on above: Performed By: #### C BC ####[facility] Cjswzfcohy[address] [place], [place] [address]DrKianna Tripathi MCHC (RBC) [Mass/Vol] 30.8 g/dL Normal 29.9-35.2 [facility] Comment on above: Performed By: #### C BC ####[facility] Easggjbwrv6432 [place] [address]DrKianna Tripathi MCV (RBC) [Entitic vol] 92.5 fL Normal 81.0-99.0 [facility] Comment on above: Performed By: #### C BC ####[facility] Lindrshury6[address] [place] [address]DrKianna Tripathi MONO # 0.6 103/ul Normal 0.3-0.8 [facility] Comment on above: Performed By: #### C BC ####[facility] Dafazhzxxz5383 [place] [address]DrKianna Tripathi Monocytes/100 WBC (Bld) 10.0 % Normal 1.7-12.0 [facility] Comment on above: Performed By: #### C BC ####[facility] Uahrcmodwe[address] [place], [place] [address]DrKianna Tripathi NEUT # 4.0 103/ul Normal 1.4-6.5 [facility] Comment on above: Performed By: #### C BC ####[facility] Xbdqlqqmdw[address] [place], [place] [address]DrKianna Tripathi Neutrophils/100 WBC (Bld) 67.6 % Normal 43.0-75.0 [facility] Comment on above: Performed By: #### C BC ####[facility] Ktjiyezsat[address] [place], [place] [address]DrKianna Tripathi Platelet mean volume (Bld) [Entitic vol] 8.8 fL Critically low 9.5-13.5 [facility] Comment on above: Performed By: #### C BC ####[facility] Tehirwvddv[address] [place], [place] [address]DrKianna Tripathi PLT 226 103/ul Normal 150-450 [facility] Comment on above: Performed By: #### C BC ####[facility] Ahqbkatfrm3930 [place] [phone] Tripathi RBC 2.67 106/ul Critically low 4.20-5.40 [facility] Comment on above: Performed By: #### C BC ####[facility] Hqvsybkync88[address] [place], [place] [address]Zh. Airam Tripathi WBC 5.9 103/ul Normal 4.0-11.0 [facility] Comment on above: Performed By: #### C BC ####[facility] Kcpgztcyph6050 [place], [place] [address]Wa. Airam Tripathi Covid-19 PCR (CVDTB)on 09-24 SARS-CoV-2 (COVID-19) RNA MIKE+probe Ql (Unsp spec) Not detected Normal NOT DETECTED [facility] Comment on above: Result Comment: When diagnostic testing is negative, the possibility of a false negative should be considered inthe context of a patient's recent exposures and the presence of clinical signs and symptomsconsistent with SARS-CoV-2.This test is not yet approved or cleared by the [place] FDA. When there are no FDA-approved or cleared tests available, and other criteria are met, FDA can make tests available under an emergency access mechanism called an Emergency Use Authorization (EUA). The EUA for this test is supported by the [place] of Health and Human Service's declaration that circumstances exist to justify the emergency use of in vitro diagnostics for the detection and/or diagnosis of the virus that causes COVID-19. This EUA will remain in effect for the duration of the COVID-19 declaration justifying emergency of IVDs, unless it is terminated or revoked by the FDA (after which the test may no longer be used). Performed By: #### C VDTBH ####[facility] [address]vqs24[address] [place], [place] [address]Kf. Airam Tripathi MAGNESIUMon 10-05-2022 Magnesium [Mass/Vol] 1.7 mg/dL Critically low 1.8-2.4 [facility] Comment on above: Performed By: #### M G, CMP ####[facility] Ufatqvlpxl[address] [place], [place] [address]Jj. Airam Tripathi POINT OF CARE GLUCOSEon 09-24 Glucose [Mass/Vol] 92 mg/dL Normal 74-106 [facility] Comment on above: Performed By: #### P OCGLUC ####[facility] Bkviidcfwb280[address] [place] [address]Dr. Airam Tripathi PROF 14(COMP METB)on 023 Albumin [Mass/Vol] 2.9 g/dL Critically low 3.4-5.0 [facility] Comment on above: Performed By: #### M G, CMP ####[facility] Eyvnrtyrno1651 [place] [address]Dr. Airam Tripathi Albumin/Globulin [Mass ratio] 0.9 {ratio} Normal [facility] Comment on above: Performed By: #### M G, CMP ####[facility] Qpiueswcig[address] [place], [place] [address]Dr. Airam Tripathi ALP [Catalytic activity/Vol] 122 U/L Critically high 46-116 [facility] Comment on above: Performed By: #### M G, CMP ####[facility] Hveevqkmhs[address] [place], [place] [address]Dr. Airam Tripathi ALT [Catalytic activity/Vol] 24 U/L Normal 14-59 [facility] Comment on above: Performed By: #### M G, CMP ####[facility] Ulkoezagnw[address] [place], [place] [address]Dr. Airam Tripathi Anion gap [Moles/Vol] 13.1 mmol/L Normal [facility] Comment on above: Performed By: #### M G, CMP ####[facility] Dhcghccrtz69[address] [place], [place] [address]Dr. Airam Tripathi AST [Catalytic activity/Vol] 21 U/L Normal 15-37 [facility] Comment on above: Performed By: #### M G, CMP ####[facility] Asvwvnqvod[address] [place], [place] [address]Dr. Airam Tripathi Bilirubin [Mass/Vol] 0.2 mg/dL Normal 0.2-1.0 [facility] Comment on above: Performed By: #### M G, CMP ####[facility] Ffwyorvajh[address] [place], [place] [address]Dr. Airam Tripathi Calcium [Mass/Vol] 8.4 mg/dL Critically low 8.5-10.1 Th [facility] Comment on above: Performed By: #### Nadya Calderon, CMP ####[facility] Xlbdlgxutw[address] [place], [place] [address]Dr. Airam Tripathi Chloride [Moles/Vol] 102 mmol/L Normal 98-107 [facility] Comment on above: Performed By: #### Nadya Calderon, CMP ####[facility] Mvwhsdjdva[address] [place], [place] [address]Dr. Airam Tripathi CO2 [Moles/Vol] 23.2 mmol/L Normal 21.0-32.0 [facility] Comment on above: Performed By: #### Nadya Calderon, CMP ####[facility] Bwferfgfli34[address] [place], [place] [address]Dr. Airam Tripathi Creatinine [Mass/Vol] 1.96 mg/dL Critically high 0.55-1.02 [facility] Comment on above: Performed By: #### Nadya Calderon, CMP ####[facility] Xmtxnhcrwi98[address] [place], [place] [address]Dr. Airam Tripathi EGFR-AF VENEZUELAN 32 mL/min/1.73m2 Critically low >=60 [facility] Comment on above: Performed By: #### Nadya Calderon, CMP ####[facility] Jvserbpcqc[address] [place], [place] [address]Dr. Airam Tripathi EGFR-NON AF VENEZUELAN 26 mL/min/1.73m2 Critically low >=60 [facility] Comment on above: Performed By: #### Nadya Calderon, CMP ####[facility] Gaicnekaii4[address] [place], [place] [address]Dr. Airam Tripathi Globulin (S) [Mass/Vol] 3.2 g/dL Normal [facility] Comment on above: Performed By: #### Nadya Calderon, CMP ####[facility] Waunhicmzz[address] [place], [place] [address]Dr. Airam Tripathi Glucose [Mass/Vol] 68 mg/dL Critically low 74-106 Th [facility] Comment on above: Performed By: #### Nadya Calderon, CMP ####[facility] Htarroaiuw[address] [place], [place] [address]Dr. Airam Tripathi Potassium [Moles/Vol] 5.3 mmol/L Critically high 3.5-5.1 [facility] Comment on above: Performed By: #### M Yumiko, CMP ####[facility] Qaisyymiil488[address] [place], [place] [address]Dr. Airam Tripathi Protein [Mass/Vol] 6.1 g/dL Critically low 6.4-8.2 Th [facility] Comment on above: Performed By: #### M Yumiko, CMP ####[facility] Twqpxsjmtd3[address] [place], [place] [address]Dr. Airam Tripathi Sodium [Moles/Vol] 133 mmol/L Critically low 136-145 Th [facility] Comment on above: Performed By: #### Nadya Calderon, CMP ####[facility] Wzvmhdrjsf4[address] [place], [place] [address]Dr. Airam Tripathi Urea nitrogen [Mass/Vol] 39.0 mg/dL Critically high 7.0-18.0 [facility] Comment on above: Performed By: #### Nadya Calderon, CMP ####[facility] Imldsfxxoi9948[address] [place], [place] [address]Dr. Airam Tripathi Urea nitrogen/Creatinine [Mass ratio] 19.9 mg/mg Normal [facility] Comment on above: Performed By: #### Nadya Calderon, CMP ####[facility] Rkzmnpnvji[address] [place], [place] [address]Dr. Airam Tripathi SODIUM RANDOM URINEon 2022 Sodium (U) [Moles/Vol] 37 mmol/L Normal 30-90 [facility] Comment on above: Performed By: #### N AU ####[facility] Okjdshevcn[address] [place], [place] [address]Dr. Airam Tripathi UA RANDOM W/MICROSCOPICon BACTERIA TRACE Abnormal NONE SEEN [facility] Comment on above: Performed By: #### U AMIC ####[facility] Zupteutgpk[address] [place], [place] [address]Dr. Airam Tripathi Bilirubin Ql (U) Negative Normal NEGATIVE [facility] Comment on above: Performed By: #### U AMIC ####[facility] Qccwrawals40[address] [place] [address]Dr. Airam Tripathi CAST SEEN Abnormal NONE SEEN [facility] Comment on above: Performed By: #### U AMIC ####[facility] Hzyeijqagv4803 [place] [address]Dr. Airam Tripathi Clarity (U) CLEAR Normal CLEAR [facility] Comment on above: Performed By: #### U AMIC ####[facility] Orngcfqzoo08[address] [place] [address]Dr. Airam Tripathi Color (U) YELLOW Normal YELLOW [facility] Comment on above: Performed By: #### U AMIC ####[facility] Ygybaxbagh[address] [place], [place] [address]Dr. Airam Tripathi Crystals LM Nom (Urine sed) NONE SEEN Normal NONE SEEN [facility] Comment on above: Performed By: #### U AMIC ####[facility] Drmsnacqdd[address] [place], [place] [address]Dr. Airam Tripathi Epithelial cells LM Ql (Urine sed) RARE Normal NONE SEEN /RARE [facility] Comment on above: Performed By: #### U AMIC ####[facility] Atvjsottmb80[address] [place], [place] [address]Dr. Airam Tripathi Glucose Ql (U) Negative Normal NEGATIVE [facility] Comment on above: Performed By: #### U AMIC ####[facility] Kmntkqakjv[address] [place], [place] [address]Dr. Airam Tripathi Hemoglobin Ql (U) Negative Normal NEGATIVE [facility] Comment on above: Performed By: #### U AMIC ####[facility] Xdknltbgnn[address] [place], [place] [address]Dr. Airam Tripathi HYALINE CAST RARE Normal [facility] Comment on above: Performed By: #### U AMIC ####[facility] Yenlecmztn[address] [place], [place] [address]Dr. Airam Tripathi Ketones Ql (U) TRACE Abnormal NEGATIVE [facility] Comment on above: Performed By: #### U AMIC ####[facility] Vfddywrtth[address] [place], [place] [address]Dr. Airam Tripathi LEUKOCYTES Negative Normal NEGATIVE [facility] Comment on above: Performed By: #### U AMIC ####[facility] Noublhtpee[address] [place] [address]Dr. Airam Tripathi MUCOUS NONE SEEN Normal NONE SEEN [facility] Comment on above: Performed By: #### U AMIC ####[facility] Ybagyvijqj6794 [place] [address]Dr. Airam Tripathi Nitrite Ql (U) Negative Normal NEGATIVE [facility] Comment on above: Performed By: #### U AMIC ####[facility] Snppthnkzt2633 [place] [address]Dr. Airam Tripathi pH (U) 5.0 [pH] Normal 5-9 [facility] Comment on above: Performed By: #### U AMIC ####[facility] Sqabqfjvhx2959 [place] [address]Dr. Airam Tripathi RBC 0-2 Normal 0-2 [facility] Comment on above: Performed By: #### U AMIC ####[facility] Kosppvfqcw[address] [place], [place] [address]Dr. Airam Tripathi SPEC GRAVITY 1.015 Normal 1.005-<=1. 025 [facility] Comment on above: Performed By: #### U AMIC ####[facility] Kzzfcbmsld[address] [place], [place] [address]Dr. Airam Tripathi UA PROTEIN Negative Normal NEGATIVE/ TRACE [facility] Comment on above: Performed By: #### U AMIC ####[facility] Upwmmiffhr[address] [place], [place] [address]Dr. Airam Tripathi Urobilinogen Qn (U) 0.2 {Ligia'U}/dL Normal 0.2 - 1. 0 [facility] Comment on above: Performed By: #### U AMIC ####[facility] Vmuuyyuswu[address] [place], [place] [address]Dr. Airam Tripathi WBC NONE SEEN Normal NONE SEEN [facility] Comment on above: Performed By: #### U AMIC ####[facility] Rznamiajds[address] [place], [place] [address]Dr. Airam Tripathi CBC AUTO DIFFon 10-04-2022 BASO # 0.0 103/ul Normal 0.0-0.1 [facility] Comment on above: Performed By: #### C BC ####[facility] Op[address] [place] [address]Dr. Airam Tripathi Basophils/100 WBC (Bld) 0.3 % Normal 0.2-2.0 [facility] Comment on above: Performed By: #### C BC ####[facility] Spmfuqqvss[address] [place] [address]Dr. Airam Tripathi EO # 0.2 103/ul Normal 0.0-0.7 [facility] Comment on above: Performed By: #### C BC ####[facility] Gkjsyviodc[address] [place], [place] [address]Dr. Airam Tripathi Eosinophils/100 WBC (Bld) 3.2 % Normal 0.9-7.0 [facility] Comment on above: Performed By: #### C BC ####[facility] Eqmhziunqq[address] [place], [place] [address]Dr. Airam Tripathi Erythrocyte distribution width (RBC) [Ratio] 15.1 % Critically high 11.0-15.0 [facility] Comment on above: Performed By: #### C BC ####[facility] Yunsonomfi[address] [place], [place] [address]Dr. Airam Tripathi Hematocrit (Bld) [Volume fraction] 27.6 % Critically low 36.0-48.0 [facility] Comment on above: Performed By: #### C BC ####[facility] Guwkdjacyf[address] [place], [place] [address]Dr. Airam Tripathi Hemoglobin (Bld) [Mass/Vol] 8.7 g/dL Critically low 12.0-16.0 [facility] Comment on above: Performed By: #### C BC ####[facility] Lhomhttrkf[address] [place], [place] [address]Dr. Airam Tripathi IG # 0.03 10e3/ul Normal 0.00-0.03 [facility] Comment on above: Performed By: #### C BC ####[facility] Umilutplsl[address] [place] [id number]. Airam Tripathi IG % 0.4 % Normal 0.0-0.5 [facility] Comment on above: Performed By: #### C BC ####[facility] Fdxyolvmrh2121 [place] [id number]. Airam Tripathi LYMPH # 1.2 103/ul Normal 1.2-3.8 [facility] Comment on above: Performed By: #### C BC ####[facility] Qajqolppnp0578 [place] [id number]. Airam Triptahi Lymphocytes/100 WBC (Bld) 16.4 % Critically low 20.5-60.0 [facility] Comment on above: Performed By: #### C BC ####[facility] Attupsevzo[address] [place] [address]Dr. Airam Deuce MANUAL DIFF REQ NO Normal [facility] Comment on above: Performed By: #### C BC ####[facility] Wmdgftdlgs[address] [place] [address]Dr. Airam Tripathi MCH (RBC) [Entitic mass] 28.5 pg Normal 26.7-34.0 [facility] Comment on above: Performed By: #### C BC ####[facility] Byusblivil0999 [place] [id number]. Airam Tripathi MCHC (RBC) [Mass/Vol] 31.5 g/dL Normal 29.9-35.2 [facility] Comment on above: Performed By: #### C BC ####[facility] Kncfgmhdwz[address] [place] [phone]. Airam Tripathi MCV (RBC) [Entitic vol] 90.5 fL Normal 81.0-99.0 [facility] Comment on above: Performed By: #### C BC ####[facility] Foktxuxwtv[address] [place], [place] [address]Dr. Airam Deuce MONO # 0.5 103/ul Normal 0.3-0.8 [facility] Comment on above: Performed By: #### C BC ####[facility] Ivrnkjmdtr1814 [place] [phone]. Airam Tripathi Monocytes/100 WBC (Bld) 7.3 % Normal 1.7-12.0 [facility] Comment on above: Performed By: #### C BC ####[facility] Juovnzitaa6039 [place] [phone]. Airam Tripathi NEUT # 5.4 103/ul Normal 1.4-6.5 [facility] Comment on above: Performed By: #### C BC ####[facility] Grigbddufn[address] [place] [address]Dr. Airam Tripathi Neutrophils/100 WBC (Bld) 72.4 % Normal 43.0-75.0 [facility] Comment on above: Performed By: #### C BC ####[facility] Dipofldply[address] [place] [address]Dr. Airam Tripathi Platelet mean volume (Bld) [Entitic vol] 9.1 fL Critically low 9.5-13.5 [facility] Comment on above: Performed By: #### C BC ####[facility] Yduafjlsrl27[address] [place] [address]Dr. Airam Tripathi PLT 304 103/ul Normal 150-450 [facility] Comment on above: Performed By: #### C BC ####[facility] Zzvkmdmsci7[address] [place] [address]Dr. Airam Tripathi RBC 3.05 106/ul Critically low 4.20-5.40 [facility] Comment on above: Performed By: #### C BC ####[facility] Bhhougidiq39[address] [place] [address]Dr. Airam Tripathi WBC 7.4 103/ul Normal 4.0-11.0 [facility] Comment on above: Performed By: #### C BC ####[facility] Mdpszmycrr5353 [place] [address]DrKianna Airam Deuce PROF 14(COMP METB)on 023 Albumin [Mass/Vol] 3.3 g/dL Critically low 3.4-5.0 [facility] Comment on above: Performed By: #### C MP ####[facility] Pajfrkrldj01[address] [place] [phone]. Airam Tripathi Albumin/Globulin [Mass ratio] 0.9 {ratio} Normal [facility] Comment on above: Performed By: #### C MP ####[facility] Dzayfsgajd7434 [place] [phone]. Airam Tripathi ALP [Catalytic activity/Vol] 127 U/L Critically high 46-116 [facility] Comment on above: Performed By: #### C MP ####[facility] Osklyqraxc[address] [place] [address]Dr. Airam Deuce ALT [Catalytic activity/Vol] 29 U/L Normal 14-59 [facility] Comment on above: Performed By: #### C MP ####[facility] Cfzoelnizi8642 [place] [address]Dr. Selenaneil Deuce Anion gap [Moles/Vol] 14.6 mmol/L Normal [facility] Comment on above: Performed By: #### C MP ####[facility] Wtwkfkkkmz[address] [place], [place] [address]Dr. Airam Deuce AST [Catalytic activity/Vol] 28 U/L Normal 15-37 [facility] Comment on above: Performed By: #### C MP ####[facility] Shyuhwyrvm[address] [place], [place] [address]Dr. Airam Deuce Bilirubin [Mass/Vol] 0.3 mg/dL Normal 0.2-1.0 [facility] Comment on above: Performed By: #### C MP ####[facility] Wpimywusfw9[address] [place] [address]Dr. Airam Deuce Calcium [Mass/Vol] 8.9 mg/dL Normal 8.5-10.1 [facility] Comment on above: Performed By: #### C MP ####[facility] Rsquiyyrma73[address] [place], [place] [address]Dr. Airam Duece Chloride [Moles/Vol] 99 mmol/L Normal 98-107 [facility] Comment on above: Performed By: #### C MP ####[facility] Yrbmxwfgqb6425[address] [place], [place] [address]Dr. Airam Tripathi CO2 [Moles/Vol] 25.1 mmol/L Normal 21.0-32.0 [facility] Comment on above: Performed By: #### C MP ####[facility] Hlpyjsiznb5834 [place] [address]Dr. Airam Tripathi Creatinine [Mass/Vol] 1.42 mg/dL Critically high 0.55-1.02 [facility] Comment on above: Performed By: #### C MP ####[facility] Vatckczviq30[address] [place] [address]Dr. Airam Tripathi EGFR-AF VENEZUELAN 46 mL/min/1.73m2 Critically low >=60 [facility] Comment on above: Performed By: #### C MP ####[facility] Xwjhpzqsnp5[address] [place] [address]Dr. Airam Tripathi EGFR-NON AF VENEZUELAN 38 mL/min/1.73m2 Critically low >=60 [facility] Comment on above: Performed By: #### C MP ####[facility] Bkqfxskiuw[address] [place], [place] [address]Dr. Airam Tripathi Globulin (S) [Mass/Vol] 3.6 g/dL Normal [facility] Comment on above: Performed By: #### C MP ####[facility] Lzhnoxaxus05[address] [place] [address]Dr. Airam Tripathi Glucose [Mass/Vol] 79 mg/dL Normal 74-106 [facility] Comment on above: Performed By: #### C MP ####[facility] Cquervxjhx[address] [place], [place] [address]Dr. Airam Tripathi Potassium [Moles/Vol] 5.7 mmol/L Critically high 3.5-5.1 [facility] Comment on above: Performed By: #### C MP ####[facility] Kfgjndxisl85[address] [place], [place] [address]Dr. Airam Tripathi Protein [Mass/Vol] 6.9 g/dL Normal 6.4-8.2 [facility] Comment on above: Performed By: #### C MP ####[facility] Guuavizoyu[address] [place] [address]Dr. Airam Tripathi Sodium [Moles/Vol] 133 mmol/L Critically low 136-145 [facility] Comment on above: Performed By: #### C MP ####[facility] Qhyogiofdj[address] [place], [place] [address]Dr. Airam Tripathi Urea nitrogen [Mass/Vol] 35.0 mg/dL Critically high 7.0-18.0 [facility] Comment on above: Performed By: #### C MP ####[facility] Rsecnvqdmj4[address] [place], [place] [address]Dr. Airam Tripathi Urea nitrogen/Creatinine [Mass ratio] 24.6 mg/mg Normal [facility] Comment on above: Performed By: #### C MP ####[facility] Eqosjaqrbc5425[address] [place], [place] [address]Dr. Airam Tripathi OSMOLALITYon 10-02-2022 Osmolality [Osmolality] 277 mosm/kg Normal 275-295 [facility] Comment on above: Performed By: #### O SMO ####[facility] Akdqwvmmhc[address] [place], [place] [address]Dr. Airam Tripathi CBC AUTO DIFFon 09-29-2022 BASO # 0.0 103/ul Normal 0.0-0.1 [facility] Comment on above: Performed By: #### C BC ####[facility] Uafyvatjqj[address] [place], [place] [address]Dr. Airam Deuce Basophils/100 WBC (Bld) 0.5 % Normal 0.2-2.0 [facility] Comment on above: Performed By: #### C BC ####[facility] Paxkewvorn[address] [place], [place] [address]Dr. Airam Deuce EO # 0.2 103/ul Normal 0.0-0.7 [facility] Comment on above: Performed By: #### C BC ####[facility] Scuddnsola[address] [place], [place] [address]Dr. Airam Deuce Eosinophils/100 WBC (Bld) 3.2 % Normal 0.9-7.0 [facility] Comment on above: Performed By: #### C BC ####[facility] Zumksutaxy9[address] [place] [address]Dr. Airam Tripathi Erythrocyte distribution width (RBC) [Ratio] 15.1 % Critically high 11.0-15.0 [facility] Comment on above: Performed By: #### C BC ####[facility] Tvbzolhwji26[address] [place], [place] [address]Dr. Airam Tripathi Hematocrit (Bld) [Volume fraction] 26.2 % Critically low 36.0-48.0 [facility] Comment on above: Performed By: #### C BC ####[facility] Wrqnpvyxsy[address] [place], [place] [address]Dr. Airam Tripathi Hemoglobin (Bld) [Mass/Vol] 8.1 g/dL Critically low 12.0-16.0 [facility] Comment on above: Performed By: #### C BC ####[facility] Cvybmvzlwe[address] [place], [place] [address]Dr. Selenaneil Tripathi IG # 0.02 10e3/ul Normal 0.00-0.03 [facility] Comment on above: Performed By: #### C BC ####[facility] Npovimvyts[address] [place], [place] [address]Dr. Airam Tripathi IG % 0.4 % Normal 0.0-0.5 [facility] Comment on above: Performed By: #### C BC ####[facility] Mzuihypalp20[address] [place], [place] [address]Dr. Airam Tripathi LYMPH # 1.3 103/ul Normal 1.2-3.8 [facility] Comment on above: Performed By: #### C BC ####[facility] Kbfytoutpa[address] [place], [place] [address]Dr. Selenaneil Tripathi Lymphocytes/100 WBC (Bld) 22.6 % Normal 20.5-60.0 [facility] Comment on above: Performed By: #### C BC ####[facility] Yboqyxxsce[address] [place], [place] [address]Dr. Airam Tripathi MANUAL DIFF REQ NO Normal [facility] Comment on above: Performed By: #### C BC ####[facility] Jbyzusybac8132 [place] [id number]. Airam Tripathi MCH (RBC) [Entitic mass] 28.0 pg Normal 26.7-34.0 [facility] Comment on above: Performed By: #### C BC ####[facility] Prshlcbmjk0313 [place] [phone]. Airam Tripathi MCHC (RBC) [Mass/Vol] 30.9 g/dL Normal 29.9-35.2 [facility] Comment on above: Performed By: #### C BC ####[facility] Ptgaukpbht[address] [place], [place] [id number]. Airam Tripathi MCV (RBC) [Entitic vol] 90.7 fL Normal 81.0-99.0 [facility] Comment on above: Performed By: #### C BC ####[facility] Yeaxdlrbrs3[address] [place], [place] [address]Dr. Airam Deuce MONO # 0.5 103/ul Normal 0.3-0.8 [facility] Comment on above: Performed By: #### C BC ####[facility] Oxkjgpyxdj88[address] [place], [place] [address]Dr. Airam Deuce Monocytes/100 WBC (Bld) 9.6 % Normal 1.7-12.0 [facility] Comment on above: Performed By: #### C BC ####[facility] Bwbmfcbkke[address] [place], [place] [address]Dr. Airam Tripathi NEUT # 3.6 103/ul Normal 1.4-6.5 [facility] Comment on above: Performed By: #### C BC ####[facility] Icdyiletzw[address] [place], [place] [id number]. Airam Deuce Neutrophils/100 WBC (Bld) 63.7 % Normal 43.0-75.0 [facility] Comment on above: Performed By: #### C BC ####[facility] Hxyotgnkxn[address] [place], [place] [address]Dr. Airam Deuce Platelet mean volume (Bld) [Entitic vol] 9.4 fL Critically low 9.5-13.5 [facility] Comment on above: Performed By: #### C BC ####[facility] Thhsukebte7495 [place] [id number]. Selenaneil Deuce PLT 258 103/ul Normal 150-450 [facility] Comment on above: Performed By: #### C BC ####[facility] Rhnxfqjtbq3944 [place] [phone]. Airam Tripathi RBC 2.89 106/ul Critically low 4.20-5.40 [facility] Comment on above: Performed By: #### C BC ####[facility] Xmkvvvpmwm4517 [place] [phone]. Airam Tripathi WBC 5.6 103/ul Normal 4.0-11.0 [facility] Comment on above: Performed By: #### C BC ####[facility] Ahmibvjwhp60[address] [place] [address]Dr. Airam Tripathi PROF 14(COMP METB)on 023 Albumin [Mass/Vol] 3.0 g/dL Critically low 3.4-5.0 [facility] Comment on above: Performed By: #### C MP ####[facility] Azxpedrzda2970 [place] [address]Dr. Airam Tripathi Albumin/Globulin [Mass ratio] 1.1 {ratio} Normal [facility] Comment on above: Performed By: #### C MP ####[facility] Drqnfrpxtw9336 [place] [address]Dr. Airam Tripathi ALP [Catalytic activity/Vol] 102 U/L Normal 46-116 [facility] Comment on above: Performed By: #### C MP ####[facility] Mvcinnzvuj1285 [place] [address]Dr. Airam Tripathi ALT [Catalytic activity/Vol] 20 U/L Normal 14-59 [facility] Comment on above: Performed By: #### C MP ####[facility] Hihopvoatj8369 [place] [address]Dr. Ariam Tripathi Anion gap [Moles/Vol] 11.1 mmol/L Normal [facility] Comment on above: Performed By: #### C MP ####[facility] Tmsrmbcpmf6534 [place] [phone]. Airam Tripathi AST [Catalytic activity/Vol] 18 U/L Normal 15-37 [facility] Comment on above: Performed By: #### C MP ####[facility] Kqavdowgoo6468 [place] [phone]. Airam Tripathi Bilirubin [Mass/Vol] 0.2 mg/dL Normal 0.2-1.0 [facility] Comment on above: Performed By: #### C MP ####[facility] Sabmtzmhuw08[address] [place] [address]Dr. Airam Tripathi Calcium [Mass/Vol] 8.0 mg/dL Critically low 8.5-10.1 [facility] Comment on above: Performed By: #### C MP ####[facility] Gyqsnefmhw3942 [place] [address]Dr. Airam Tripathi Chloride [Moles/Vol] 100 mmol/L Normal 98-107 [facility] Comment on above: Performed By: #### C MP ####[facility] Nrcwlcnoyg[address] [place], [place] [address]Dr. Airam Tripathi CO2 [Moles/Vol] 24.8 mmol/L Normal 21.0-32.0 [facility] Comment on above: Performed By: #### C MP ####[facility] Estrinnruh7[address] [place], [place] [address]Dr. Airam Tripathi Creatinine [Mass/Vol] 1.11 mg/dL Critically high 0.55-1.02 [facility] Comment on above: Performed By: #### C MP ####[facility] Wcgleoebbj2718 [place] [phone]. Airam Deuce EGFR-AF VENEZUELAN >60 Normal >=60 [facility] Comment on above: Performed By: #### C MP ####[facility] Uqdhvicucu5557 [place] [phone]. Airam Tripathi EGFR-NON AF VENEZUELAN 50 mL/min/1.73m2 Critically low >=60 [facility] Comment on above: Performed By: #### C MP ####[facility] Ldlgicckem2276 [place] [address]Dr. Airam Tripathi Globulin (S) [Mass/Vol] 2.8 g/dL Normal [facility] Comment on above: Performed By: #### C MP ####[facility] Trrymxdbqs5932[address] [place], [place] [address]Dr. Airam Tripathi Glucose [Mass/Vol] 77 mg/dL Normal 74-106 [facility] Comment on above: Performed By: #### C MP ####[facility] Qbraixupcg232[address] [place], [place] [address]Dr. Airam Tripathi Potassium [Moles/Vol] 4.9 mmol/L Normal 3.5-5.1 [facility] Comment on above: Performed By: #### C MP ####[facility] Hdpmfobcle9[address] [place], [place] [address]Dr. Airam Triptahi Protein [Mass/Vol] 5.8 g/dL Critically low 6.4-8.2 [facility] Comment on above: Performed By: #### C MP ####[facility] Bzhisqulff6[address] [place], [place] [address]Dr. Airam Tripathi Sodium [Moles/Vol] 131 mmol/L Critically low 136-145 [facility] Comment on above: Performed By: #### C MP ####[facility] Qeluzxffuy5064[address] [place], [place] [address]Dr. Airam Tripathi Urea nitrogen [Mass/Vol] 33.0 mg/dL Critically high 7.0-18.0 [facility] Comment on above: Performed By: #### C MP ####[facility] Facqtmhdtw[address] [place], [place] [address]Dr. Airam Tripathi Urea nitrogen/Creatinine [Mass ratio] 29.7 mg/mg Normal [facility] Comment on above: Performed By: #### C MP ####[facility] Nllilcxgbc0[address] [place], [place] [address]Dr. Airam Deuce ECHOCARDIO M/2D COMPLETEon 0 09-21-2022 ECHOCARDIO M/2D COMPLETE Normal [facility] OSMOLALITYon 09-21-2022 Osmolality [Osmolality] 282 mosm/kg Normal 275-295 [facility] Comment on above: Performed By: #### O SMO ####[facility] Qbvikndwbc87[address] [place] [address]Dr. Airam Tripathi PHOSPHOLIPIDSon 09-21-2022 Phospholipids, Serum 249 mg/dL Normal 151-288 [facility] Comment on above: Performed By: #### P HOSLIP ####[facility] Lwtvgoncfc[address] [place], [place] [address]Dr. Airam Deuce CBC AUTO DIFFon 09-20-2022 BASO # 0.0 103/ul Normal 0.0-0.1 [facility] Comment on above: Performed By: #### C BC ####[facility] Gsdctlvzft[address] [place], [place] [address]Dr. Airam Tripathi Basophils/100 WBC (Bld) 0.5 % Normal 0.2-2.0 [facility] Comment on above: Performed By: #### C BC ####[facility] Lecwqumccv[address] [place], [place] [address]Dr. Airam Tripathi EO # 0.2 103/ul Normal 0.0-0.7 [facility] Comment on above: Performed By: #### C BC ####[facility] Kgifvsocfd4701[address] [place], [place] [address]Dr. Airam Tripathi Eosinophils/100 WBC (Bld) 2.9 % Normal 0.9-7.0 [facility] Comment on above: Performed By: #### C BC ####[facility] Cssolqaqwi7[address] [place], [place] [address]Dr. Airam Tripathi Erythrocyte distribution width (RBC) [Ratio] 15.4 % Critically high 11.0-15.0 [facility] Comment on above: Performed By: #### C BC ####[facility] Xvkvxewkff1236[address] [place], [place] [address]Dr. Airam Tripathi Hematocrit (Bld) [Volume fraction] 26.3 % Critically low 36.0-48.0 [facility] Comment on above: Performed By: #### C BC ####[facility] Pdhdrzbsfe[address] [place], [place] [address]Dr. Airam Tripathi Hemoglobin (Bld) [Mass/Vol] 8.2 g/dL Critically low 12.0-16.0 [facility] Comment on above: Performed By: #### C BC ####[facility] Reodlcnppv[address] [place] [address]DrKianna Tripathi IG # 0.03 10e3/ul Normal 0.00-0.03 [facility] Comment on above: Performed By: #### C BC ####[facility] Jkbpjnksjs4492 [place] [address]DrKianna Tripathi IG % 0.4 % Normal 0.0-0.5 [facility] Comment on above: Performed By: #### C BC ####[facility] Mfncszbomj6[address] [place], [place] [address]DrKianna Tripathi LYMPH # 1.9 103/ul Normal 1.2-3.8 [facility] Comment on above: Performed By: #### C BC ####[facility] Sudnfecwep6348 [place] [address]DrKianna Tripathi Lymphocytes/100 WBC (Bld) 23.0 % Normal 20.5-60.0 [facility] Comment on above: Performed By: #### C BC ####[facility] Ihozgxvigl[address] [place], [place] [address]DrKianna Tripathi MANUAL DIFF REQ NO Normal [facility] Comment on above: Performed By: #### C BC ####[facility] Lrfkyfxlne[address] [place] [address]DrKianna Tripathi MCH (RBC) [Entitic mass] 28.5 pg Normal 26.7-34.0 [facility] Comment on above: Performed By: #### C BC ####[facility] Yevsjtjybn6454 [place] [address]DrKianna Tripathi MCHC (RBC) [Mass/Vol] 31.2 g/dL Normal 29.9-35.2 [facility] Comment on above: Performed By: #### C BC ####[facility] Crcgmaidlw0536 [place] [address]DrKianna Tripathi MCV (RBC) [Entitic vol] 91.3 fL Normal 81.0-99.0 [facility] Comment on above: Performed By: #### C BC ####[facility] Zahiihbypw[address]859 [place] [address]Dr. Airam Tripathi MONO # 0.7 103/ul Normal 0.3-0.8 [facility] Comment on above: Performed By: #### C BC ####[facility] Spykfrkbei67[address] [place] [address]Dr. Airam Tripathi Monocytes/100 WBC (Bld) 7.7 % Normal 1.7-12.0 [facility] Comment on above: Performed By: #### C BC ####[facility] Qxniyxvjjf[address] [place], [place] [address]Dr. Airam Tripathi NEUT # 5.5 103/ul Normal 1.4-6.5 [facility] Comment on above: Performed By: #### C BC ####[facility] [address]vzorkfjgz[address] [place], [place] [address]Dr. Airam Tripathi Neutrophils/100 WBC (Bld) 65.5 % Normal 43.0-75.0 [facility] Comment on above: Performed By: #### C BC ####[facility] [address]sv[address] [place], [place] [address]Dr. Airam Tripathi Platelet mean volume (Bld) [Entitic vol] 9.1 fL Critically low 9.5-13.5 [facility] Comment on above: Performed By: #### C BC ####[facility] Ooesicifcn[address] [place], [place] [address]Dr. Airam Tripathi PLT 258 103/ul Normal 150-450 [facility] Comment on above: Performed By: #### C BC ####[facility] W[address]uzkb[address] [place], [place] [id number]. Airam Tripathi RBC 2.88 106/ul Critically low 4.20-5.40 [facility] Comment on above: Performed By: #### C BC ####[facility] [address] [place] [address]Dr. Airam Deuce WBC 8.4 103/ul Normal 4.0-11.0 [facility] Comment on above: Performed By: #### C BC ####[facility] Ryddheywfu[address] [place] [address]Dr. Airam Tripathi PROF CHEM 8 (BAS METB)on Anion gap [Moles/Vol] 10.3 mmol/L Normal [facility] Comment on above: Performed By: #### B MP ####[facility] Naxcventjp407[address] [place], [place] [address]Dr. Airam Tripathi Calcium [Mass/Vol] 7.9 mg/dL Critically low 8.5-10.1 [facility] Comment on above: Performed By: #### B MP ####[facility] Nektpfjlov[address] [place], [place] [address]Dr. Airam Tripathi Chloride [Moles/Vol] 98 mmol/L Normal 98-107 [facility] Comment on above: Performed By: #### B MP ####[facility] Xzqwgrfffc[address] [place], [place] [address]Dr. Airam Tripathi CO2 [Moles/Vol] 27.5 mmol/L Normal 21.0-32.0 [facility] Comment on above: Performed By: #### B MP ####[facility] Eluaynprht[address] [place], [place] [address]Dr. Airam Tripathi Creatinine [Mass/Vol] 1.44 mg/dL Critically high 0.55-1.02 [facility] Comment on above: Performed By: #### B MP ####[facility] Jzxfjkwqua[address] [place], [place] [address]Dr. Airam Tripathi EGFR-AF VENEZUELAN 45 mL/min/1.73m2 Critically low >=60 [facility] Comment on above: Performed By: #### B MP ####[facility] Irxlamshuu[address] [place], [place] [address]Dr. Airam Tripathi EGFR-NON AF VENEZUELAN 37 mL/min/1.73m2 Critically low >=60 [facility] Comment on above: Performed By: #### B MP ####[facility] Nqhdvplljj[address] [place], [place] [address]Dr. Airam Tripathi Glucose [Mass/Vol] 91 mg/dL Normal 74-106 [facility] Comment on above: Performed By: #### B MP ####[facility] Kldvrzunxz[address] [place], [place] [address]Dr. Aiarm Tripathi Potassium [Moles/Vol] 4.8 mmol/L Normal 3.5-5.1 [facility] Comment on above: Performed By: #### B MP ####[facility] Szewlfedmx[address] [place], [place] [address]Dr. Airam Tripathi Sodium [Moles/Vol] 131 mmol/L Critically low 136-145 [facility] Comment on above: Performed By: #### B MP ####[facility] Zeszvjpjed[address] [place], [place] [address]Dr. Airam Tripathi Urea nitrogen [Mass/Vol] 40.0 mg/dL Critically high 7.0-18.0 [facility] Comment on above: Performed By: #### B MP ####[facility] Blbtuesgpx[address]18[address] [place], [place] [address]Dr. Airam Tripathi Urea nitrogen/Creatinine [Mass ratio] 27.8 mg/mg Normal [facility] Comment on above: Performed By: #### B MP ####[facility] Dztyeudray48[address] [place], [place] [address]Dr. Airam Tripathi Anion gap [Moles/Vol] 10.6 mmol/L Normal [facility] Comment on above: Performed By: #### B MP ####[facility] Hthyeouroi854[address] [place], [place] [address]Dr. Airam Tripathi Calcium [Mass/Vol] 7.9 mg/dL Critically low 8.5-10.1 [facility] Comment on above: Performed By: #### B MP ####[facility] Evahjxuzat9576[address] [place], [place] [address]Dr. Airam Tripathi Chloride [Moles/Vol] 101 mmol/L Normal 98-107 [facility] Comment on above: Performed By: #### B MP ####[facility] Vitmhdeolq7135[address] [place], [place] [address]Dr. Airam Tripathi CO2 [Moles/Vol] 27.4 mmol/L Normal 21.0-32.0 [facility] Comment on above: Performed By: #### B MP ####[facility] Tbmnixuzgq0930[address] [place], [place] [address]Dr. Airam Tripathi Creatinine [Mass/Vol] 1.35 mg/dL Critically high 0.55-1.02 [facility] Comment on above: Performed By: #### B MP ####[facility] Qttnzlwuxr[address] [place], [place] [address]Dr. Airam Tripathi EGFR-AF VENEZUELAN 48 mL/min/1.73m2 Critically low >=60 [facility] Comment on above: Performed By: #### B MP ####[facility] Tmdesugdql6613[address] [place], [place] [address]Dr. Airam Tripathi EGFR-NON AF VENEZUELAN 40 mL/min/1.73m2 Critically low >=60 [facility] Comment on above: Performed By: #### B MP ####[facility] Gicbcsokex[address] [place], [place] [address]Dr. Airam Tripathi Glucose [Mass/Vol] 114 mg/dL Critically high 74-106 T [facility] Comment on above: Performed By: #### B MP ####[facility] Rocluozqjd1877[address] [place], [place] [address]Dr. Airam Tripathi Potassium [Moles/Vol] 5.0 mmol/L Normal 3.5-5.1 [facility] Comment on above: Performed By: #### B MP ####[facility] Zdbfayyvrg054[address] [place], [place] [address]Dr. Airam Tripathi Sodium [Moles/Vol] 134 mmol/L Critically low 136-145 [facility] Comment on above: Performed By: #### B MP ####[facility] Hslawhzgad9[address] [place], [place] [address]Dr. Airam Tripathi Urea nitrogen [Mass/Vol] 40.0 mg/dL Critically high 7.0-18.0 [facility] Comment on above: Performed By: #### B MP ####[facility] Vsxpxtmkxc7210[address] [place], [place] [address]Dr. Airam Tripathi Urea nitrogen/Creatinine [Mass ratio] 29.6 mg/mg Normal [facility] Comment on above: Performed By: #### B MP ####[facility] Pdtexnjfyo[address] [place], [place] [address]Dr. Airam Tripathi PTH INTACTon 09-20-2022 PTH, Intact 104 pg/mL Critically high 15-65 [facility] Comment on above: Performed By: #### P THINT ####[facility] Musbqfagmz927[address] [place], [place] [address]Dr. Airam Tripathi BNPon 09-19-2022 Natriuretic peptide B (Bld) [Mass/Vol] 1272.0 pg/mL Critically high <=900.0 [facility] Comment on above: Performed By: #### H STROPN, TSH, K, BNP ####[facility] Lothqcsqxk3867[address] [place], [place] [address]Dr. Airam Tripathi CBC AUTO DIFFon 09-19-2022 BASO # 0.0 103/ul Normal 0.0-0.1 [facility] Comment on above: Performed By: #### C BC ####[facility] Tggmsobzxy[address] [place], [place] [address]Dr. Airam Tripathi Basophils/100 WBC (Bld) 0.5 % Normal 0.2-2.0 [facility] Comment on above: Performed By: #### C BC ####[facility] Pgixwnjgxl5[address] [place], [place] [address]Dr. Airam Tripathi EO # 0.2 103/ul Normal 0.0-0.7 [facility] Comment on above: Performed By: #### C BC ####[facility] Badiwrytai17[address] [place], [place] [address]Dr. Airam Tripathi Eosinophils/100 WBC (Bld) 2.6 % Normal 0.9-7.0 [facility] Comment on above: Performed By: #### C BC ####[facility] Bqffcsnvzs[address] [place], [place] [address]Dr. Airam Tripathi Erythrocyte distribution width (RBC) [Ratio] 15.5 % Critically high 11.0-15.0 [facility] Comment on above: Performed By: #### C BC ####[facility] [address] [place] [address]Dr. Airam Tripathi Hematocrit (Bld) [Volume fraction] 31.1 % Critically low 36.0-48.0 [facility] Comment on above: Performed By: #### C BC ####[facility] [address] [place] [address]Dr. Airam Tripathi Hemoglobin (Bld) [Mass/Vol] 9.6 g/dL Critically low 12.0-16.0 [facility] Comment on above: Performed By: #### C BC ####[facility] Qurupdweqt3127[address] [place], [place] [address]Dr. Airam Tripathi IG # 0.04 10e3/ul Critically high 0.00-0.03 [facility] Comment on above: Performed By: #### C BC ####[facility] Pdmifbzeah[address] [place], [place] [address]Dr. Airam Tripathi IG % 0.5 % Normal 0.0-0.5 [facility] Comment on above: Performed By: #### C BC ####[facility] Zhflwzpdgi[address] [place], [place] [address]DrKianna Tripathi LYMPH # 1.0 103/ul Critically low 1.2-3.8 [facility] Comment on above: Performed By: #### C BC ####[facility] Lmhpigqlmv[address] [place], [place] [address]DrKianna Tripathi Lymphocytes/100 WBC (Bld) 12.0 % Critically low 20.5-60.0 [facility] Comment on above: Performed By: #### C BC ####[facility] Ohlulqqjfm[address] [place], [place] [address]DrKianna Tripathi MANUAL DIFF REQ NO Normal [facility] Comment on above: Performed By: #### C BC ####[facility] Xeukdhettv[address] [place], [place] [address]DrKianna Tripathi MCH (RBC) [Entitic mass] 28.2 pg Normal 26.7-34.0 [facility] Comment on above: Performed By: #### C BC ####[facility] [address] [place] [id number]. Selenaneil Tripathi MCHC (RBC) [Mass/Vol] 30.9 g/dL Normal 29.9-35.2 [facility] Comment on above: Performed By: #### C BC ####[facility] [address] [place] [id number]. Airam Tripathi MCV (RBC) [Entitic vol] 91.5 fL Normal 81.0-99.0 [facility] Comment on above: Performed By: #### C BC ####[facility] Cugcgtalol[address] [place], [place] [address]Dr. Airam Tripathi MONO # 0.5 103/ul Normal 0.3-0.8 [facility] Comment on above: Performed By: #### C BC ####[facility] Jpkbypdkod[address] [place], [place] [address]Dr. Airam Tripathi Monocytes/100 WBC (Bld) 6.4 % Normal 1.7-12.0 [facility] Comment on above: Performed By: #### C BC ####[facility] Djcyfleqda68[address] [place], [place] [address]Dr. Airam Tripathi NEUT # 6.4 103/ul Normal 1.4-6.5 [facility] Comment on above: Performed By: #### C BC ####[facility] Ubaovwytjc[address] [place], [place] [address]Dr. Airam Tripathi Neutrophils/100 WBC (Bld) 78.0 % Critically high 43.0-75.0 [facility] Comment on above: Performed By: #### C BC ####[facility] Yrmnyndhkp[address] [place], [place] [address]Dr. Airam Tripathi Platelet mean volume (Bld) [Entitic vol] 9.1 fL Critically low 9.5-13.5 [facility] Comment on above: Performed By: #### C BC ####[facility] Yjuvbwghnk[address] [place], [place] [address]Dr. Airam Tripathi PLT 318 103/ul Normal 150-450 [facility] Comment on above: Performed By: #### C BC ####[facility] [address] [place], [place] [address]Xd. Airam Tripathi RBC 3.40 106/ul Critically low 4.20-5.40 [facility] Comment on above: Performed By: #### C BC ####[facility] [address] [place], [place] [address]Wf. Airam Tripathi WBC 8.2 103/ul Normal 4.0-11.0 [facility] Comment on above: Performed By: #### C BC ####[facility] [address] [place], [place] [address]Ax. Airam Tripathi Covid-19 PCR (CVDTBH)on 08-25 SARS-CoV-2 (COVID-19) RNA MIKE+probe Ql (Unsp spec) Not detected Normal NOT DETECTED [facility] Comment on above: Result Comment: When diagnostic testing is negative, the possibility of a false negative should be considered inthe context of a patient's recent exposures and the presence of clinical signs and symptomsconsistent with SARS-CoV-2.This test is not yet approved or cleared by the [place] FDA. When there are no FDA-approved or cleared tests available, and other criteria are met, FDA can make tests available under an emergency access mechanism called an Emergency Use Authorization (EUA). The EUA for this test is supported by the Leader Writer of Health and Human Service's declaration that circumstances exist to justify the emergency use of in vitro diagnostics for the detection and/or diagnosis of the virus that causes COVID-19. This EUA will remain in effect for the duration of the COVID-19 declaration justifying emergency of IVDs, unless it is terminated or revoked by the FDA (after which the test may no longer be used). Performed By: #### C VDTBH ####[facility] [address] [place], [place] [address]Kc. Airam Tripathi LACTATE/LACTIC ACIDon 2022 Lactate [Moles/Vol] 0.4 mmol/L Normal 0.4-2.0 [facility] Comment on above: Performed By: #### L ACT ####[facility] [address] [place] [address]Dr. Airam Tripathi POTASSIUMon 09-19-2022 Potassium [Moles/Vol] 6.3 mmol/L Critically high 3.5-5.1 [facility] Comment on above: Performed By: #### H STROPN, TSH, K, BNP ####[facility] [address] [place] [address]Dr. Airam Tripathi PROF 14(COMP METB)on 023 Albumin [Mass/Vol] 3.5 g/dL Normal 3.4-5.0 [facility] Comment on above: Performed By: #### C MP ####[facility] Ciqumxktkg[address] [place], [place] [address]Dr. Airam Tripathi Albumin/Globulin [Mass ratio] 1.1 {ratio} Normal [facility] Comment on above: Performed By: #### C MP ####[facility] Wjnfvksqxp7155[address] [place], [place] [address]Dr. Airam Tripathi ALP [Catalytic activity/Vol] 113 U/L Normal 46-116 [facility] Comment on above: Performed By: #### C MP ####[facility] Wrfauvyczw[address] [place], [place] [address]Dr. Airam Tripathi ALT [Catalytic activity/Vol] 26 U/L Normal 14-59 [facility] Comment on above: Performed By: #### C MP ####[facility] Qagqjpzovb7[address] [place], [place] [address]Dr. Airam Tripathi Anion gap [Moles/Vol] 11.5 mmol/L Normal [facility] Comment on above: Performed By: #### C MP ####[facility] Tiurvstuke238[address] [place], [place] [address]Dr. Airam Tripathi AST [Catalytic activity/Vol] 24 U/L Normal 15-37 [facility] Comment on above: Performed By: #### C MP ####[facility] Mmkxjhhikw24[address] [place], [place] [address]Dr. Airam Tripathi Bilirubin [Mass/Vol] 0.3 mg/dL Normal 0.2-1.0 [facility] Comment on above: Performed By: #### C MP ####[facility] [address] [place] [address]Dr. Airam Tripathi Calcium [Mass/Vol] 8.9 mg/dL Normal 8.5-10.1 [facility] Comment on above: Performed By: #### C MP ####[facility] Lkurzgmrsy[address] [place], [place] [address]Dr. Airam Tripathi Chloride [Moles/Vol] 103 mmol/L Normal 98-107 [facility] Comment on above: Performed By: #### C MP ####[facility] Fzlwfuspky[address] [place], [place] [address]Dr. Airam Tripathi CO2 [Moles/Vol] 27.8 mmol/L Normal 21.0-32.0 [facility] Comment on above: Performed By: #### C MP ####[facility] Azzdhpzhok[address] [place], [place] [address]Dr. Airam Tripathi Creatinine [Mass/Vol] 1.28 mg/dL Critically high 0.55-1.02 [facility] Comment on above: Performed By: #### C MP ####[facility] Qvozznycjr[address] [place], [place] [address]Dr. Airam Tripathi EGFR-AF VENEZUELAN 52 mL/min/1.73m2 Critically low >=60 [facility] Comment on above: Performed By: #### C MP ####[facility] Ywpitlygsb[address] [place], [place] [address]Dr. Airam Tripathi EGFR-NON AF VENEZUELAN 43 mL/min/1.73m2 Critically low >=60 [facility] Comment on above: Performed By: #### C MP ####[facility] Nokmxcucee[address] [place], [place] [address]Dr. Airam Tripathi Globulin (S) [Mass/Vol] 3.2 g/dL Normal [facility] Comment on above: Performed By: #### C MP ####[facility] Fjjgrkyckh[address]56[address] [place], [place] [address]Dr. Airam Tripathi Glucose [Mass/Vol] 95 mg/dL Normal 74-106 [facility] Comment on above: Performed By: #### C MP ####[facility] [address]im[address] [place] [id number]. Airam Tripathi Potassium [Moles/Vol] 6.3 mmol/L Critically high 3.5-5.1 [facility] Comment on above: Performed By: #### C MP ####[facility] [address]hwsmixf[address] [place] [id number]. Airam Tripathi Protein [Mass/Vol] 6.7 g/dL Normal 6.4-8.2 [facility] Comment on above: Performed By: #### C MP ####[facility] Unlxjextdb525[address] [place], [place] [address]Dr. Airam Tripathi Sodium [Moles/Vol] 135 mmol/L Critically low 136-145 [facility] Comment on above: Performed By: #### C MP ####[facility] Zkowhiofjo[address] [place], [place] [address]Dr. Airam Tripathi Urea nitrogen [Mass/Vol] 42.0 mg/dL Critically high 7.0-18.0 [facility] Comment on above: Performed By: #### C MP ####[facility] Y[address]pgzqjtx[address] [place], [place] [address]Dr. Airam Tripathi Urea nitrogen/Creatinine [Mass ratio] 32.8 mg/mg Normal [facility] Comment on above: Performed By: #### C MP ####[facility] [address]ufvlaixmm[address] [place], [place] [address]Dr. Airam Tripathi TROPONIN, HIGH SENSITIVITYon 09-19-2022 HSTROP 7.1 pg/mL Normal 4.0-51.3 [facility] Comment on above: Result Comment: CUT- OFF POINTS HAVE BEEN ESTABLISHED BASED ON THE FOURTH UNIVERSAL DEFINITIONS OF MYOCARDIALINFARCTION. THE UPPER REFERENCE LIMIT (URL) OF TROPONIN, DEFINED THE 99TH PERCENTILE OFcTnI DISTRIBUTION IN A REFERENCE POPULATION, HAS BEEN CONFIRMED THE DECISION THRESHOLDFOR HI DIAGNOSIS. Performed By: #### H STROPN, TSH, K, BNP ####[facility] [address] [place] [address]Dr. Airam Tripathi TSHon 09-19-2022 TSH 0.028 uIU/mL Critically low 0.358-3.74 0 [facility] Comment on above: Performed By: #### H STROPN, TSH, K, BNP ####[facility] Zoyiqnykuu[address] [place], [place] [address]Dr. Airam Tripathi UA RANDOMon 09-19-2022 Bilirubin Ql (U) Negative Normal NEGATIVE [facility] Comment on above: Performed By: #### U A ####[facility] Nyrmdptifi[address] [place], [place] [address]Dr. Airam Tripathi Clarity (U) CLEAR Normal CLEAR [facility] Comment on above: Performed By: #### U A ####[facility] Wtddqeebbg64[address] [place], [place] [address]Dr. Airam Tripathi Color (U) LT. YELLOW Normal YELLOW [facility] Comment on above: Performed By: #### U A ####[facility] Ngklwqyubu[address] [place], [place] [address]Dr. Airam Tripathi Glucose Ql (U) Negative Normal NEGATIVE [facility] Comment on above: Performed By: #### U A ####[facility] Ismkhtpjbf86[address] [place], [place] [address]Dr. Airam Tripathi Hemoglobin Ql (U) Negative Normal NEGATIVE [facility] Comment on above: Performed By: #### U A ####[facility] Aryvypuhpg[address] [place], [place] [address]Dr. Airam Tripathi Ketones Ql (U) Negative Normal NEGATIVE [facility] Comment on above: Performed By: #### U A ####[facility] Tkvltraeeq[address] [place], [place] [address]Dr. Airam Tripathi LEUKOCYTES TRACE Abnormal NEGATIVE [facility] Comment on above: Performed By: #### U A ####[facility] Ylemmluxjn74[address] [place], [place] [address]Dr. Airam Tripathi Nitrite Ql (U) Negative Normal NEGATIVE [facility] Comment on above: Performed By: #### U A ####[facility] Goesojzrox[address] [place], [place] [address]Dr. Airam Tripathi pH (U) 5.5 [pH] Normal 5-9 [facility] Comment on above: Performed By: #### U A ####[facility] [address] [place] [address]Dr. Airam Tripathi SPEC GRAVITY 1.010 Normal 1.005-<=1. 025 [facility] Comment on above: Performed By: #### U A ####[facility] Avynhavzqv[address] [place], [place] [address]Dr. Airam Tripathi UA PROTEIN Negative Normal NEGATIVE/ TRACE [facility] Comment on above: Performed By: #### U A ####[facility] Hjskoiaisy[address] [place], [place] [address]Dr. Airam Tripathi Urobilinogen Qn (U) 0.2 {Ligia'U}/dL Normal 0.2 - 1. 0 [facility] Comment on above: Performed By: #### U A ####[facility] Qgfqpqqtmm312[address] [place], [place] [address]Dr. Airam Tripathi URIC ACID SERUMon 09-19-2022 Urate [Mass/Vol] 6.9 mg/dL Critically high 2.6-6.0 [facility] Comment on above: Performed By: #### U TRESSA ####[facility] Hzsmhfnvol8115[address] [place], [place] [address]Dr. Airam Tripathi URINE T PROTEIN CREAT RATIOo n 09-19-2022 UR TOTAL PROTEIN <6.0 Normal <=12.0 [facility] Comment on above: Performed By: #### U RTPCR ####[facility] V[address]hwfqzxx[address] [place], [place] [address]Dr. Airam Tripathi URINE CREAT 15.12 mg/dL Critically low 20.00-300. 00 [facility] Comment on above: Performed By: #### U RTPCR ####[facility] Dwqmczfzfy[address] [place], [place] [address]Dr. Airam Tripathi VITAMIN D 25 OHon 09-19-2022 VIT D 25-OH 75.9 ng/mL Normal [facility] Comment on above: Performed By: #### V ITAD ####[facility] [address]whtjksx[address] [place], [place] [address]Dr. Airam Tripathi VIT D RANGES SEE BELOW Normal [facility] Comment on above: Result Comment: <20 ng/mL Vit D deficient 20 - <30 ng/mL Vit D insufficient 30 - 100 ng/mL Vit D sufficient >100 ng/mL Potential Toxicity Performed By: #### V ITAD ####[facility] Cyvgqweyxq[address] [place], [place] [address]Dr. Airam Tripathi OSMOLALITYon 09-14-2022 Osmolality [Osmolality] 272 mosm/kg Critically low 275-295 [facility] Comment on above: Performed By: #### O SMO ####[facility] [address]ccom[address]be[address] [place] [id number]. Airam Tripathi CBC AUTO DIFFon 09-12-2022 BASO # 0.0 103/ul Normal 0.0-0.1 [facility] Comment on above: Performed By: #### C BC ####[facility] Bwtvliqzqa[address] [place], [place] [address]Dr. Airam Tripathi Basophils/100 WBC (Bld) 0.5 % Normal 0.2-2.0 [facility] Comment on above: Performed By: #### C BC ####[facility] Soeonaznoq[address] [place], [place] [address]Dr. Airam Tripathi EO # 0.2 103/ul Normal 0.0-0.7 [facility] Comment on above: Performed By: #### C BC ####[facility] Mvsuhrnhbc[address] [place], [place] [address]Dr. Airam Tripathi Eosinophils/100 WBC (Bld) 2.4 % Normal 0.9-7.0 [facility] Comment on above: Performed By: #### C BC ####[facility] Bcnuefmsle[address] [place], [place] [address]Dr. Airam Tripathi Erythrocyte distribution width (RBC) [Ratio] 14.8 % Normal 11.0-15.0 [facility] Comment on above: Performed By: #### C BC ####[facility] Zxhvrmejuq[address] [place], [place] [address]Dr. Airam Tripathi Hematocrit (Bld) [Volume fraction] 32.6 % Critically low 36.0-48.0 [facility] Comment on above: Performed By: #### C BC ####[facility] [address] [place] [address]Dr. Airam Tripathi Hemoglobin (Bld) [Mass/Vol] 10.1 g/dL Critically low 12.0-16.0 [facility] Comment on above: Performed By: #### C BC ####[facility] Litjqdbhmc[address] [place] [address]Dr. Airam Tripathi IG # 0.05 10e3/ul Critically high 0.00-0.03 [facility] Comment on above: Performed By: #### C BC ####[facility] Tkagxncbmj[address] [place], [place] [address]Dr. Airam Tripathi IG % 0.7 % Critically high 0.0-0.5 [facility] Comment on above: Performed By: #### C BC ####[facility] Oxqkdwelws[address] [place], [place] [address]Dr. Airam Tripathi LYMPH # 1.9 103/ul Normal 1.2-3.8 [facility] Comment on above: Performed By: #### C BC ####[facility] Uwdsphmwgw[address] [place], [place] [address]Dr. Airam Tripathi Lymphocytes/100 WBC (Bld) 24.7 % Normal 20.5-60.0 [facility] Comment on above: Performed By: #### C BC ####[facility] Udurdsqyla[address] [place], [place] [address]Dr. Airam Tripathi MANUAL DIFF REQ NO Normal [facility] Comment on above: Performed By: #### C BC ####[facility] Zaqlshlcpy8277[address] [place], [place] [address]Dr. Airam Tripathi MCH (RBC) [Entitic mass] 28.0 pg Normal 26.7-34.0 [facility] Comment on above: Performed By: #### C BC ####[facility] Zxgackldyu5[address] [place], [place] [address]Dr. Airam Tripathi MCHC (RBC) [Mass/Vol] 31.0 g/dL Normal 29.9-35.2 [facility] Comment on above: Performed By: #### C BC ####[facility] Kn[address]hctc14[address] [place] [id number]. Airam Deuce MCV (RBC) [Entitic vol] 90.3 fL Normal 81.0-99.0 [facility] Comment on above: Performed By: #### C BC ####[facility] Nvfmwvxxuh1014 [place] [id number]. Airam Deuce MONO # 0.5 103/ul Normal 0.3-0.8 [facility] Comment on above: Performed By: #### C BC ####[facility] Gowtsnoxvd9654 [place] [id number]. Selenaneil Tripathi Monocytes/100 WBC (Bld) 6.0 % Normal 1.7-12.0 [facility] Comment on above: Performed By: #### C BC ####[facility] Utgezahscb[address] [place], [place] [id number]. Selenaneil Deuce NEUT # 5.0 103/ul Normal 1.4-6.5 [facility] Comment on above: Performed By: #### C BC ####[facility] Wwxhjoymve[address] [place], [place] [id number]. Selenaneil Tripathi Neutrophils/100 WBC (Bld) 65.7 % Normal 43.0-75.0 [facility] Comment on above: Performed By: #### C BC ####[facility] Tygtrahdcd8[address] [place], [place] [id number]. Airam Tripathi Platelet mean volume (Bld) [Entitic vol] 9.5 fL Normal 9.5-13.5 [facility] Comment on above: Performed By: #### C BC ####[facility] Onvzcfkmha9425[address] [place], [place] [id number]. Airam Tripathi PLT 307 103/ul Normal 150-450 [facility] Comment on above: Performed By: #### C BC ####[facility] Hrgxjtimpy18[address] [place] [phone]. Airam Tripathi RBC 3.61 106/ul Critically low 4.20-5.40 [facility] Comment on above: Performed By: #### C BC ####[facility] Ffmgcvzpit[address] [place] [address]Dr. Airam Tripathi WBC 7.5 103/ul Normal 4.0-11.0 [facility] Comment on above: Performed By: #### C BC ####[facility] Yxztjxmtrc9066 [place] [address]Dr. Airam Tripathi PROF 14(COMP METB)on 023 Albumin [Mass/Vol] 3.5 g/dL Normal 3.4-5.0 [facility] Comment on above: Performed By: #### C MP ####[facility] Vughxioccn[address] [place] [address]Dr. Airam Tripathi Albumin/Globulin [Mass ratio] 1.1 {ratio} Normal [facility] Comment on above: Performed By: #### C MP ####[facility] Dwoepekjwb16[address] [place], [place] [address]Dr. Airam Tripathi ALP [Catalytic activity/Vol] 126 U/L Critically high 46-116 [facility] Comment on above: Performed By: #### C MP ####[facility] Vkddjyvvbz[address] [place], [place] [address]Dr. Selenaneil Tripathi ALT [Catalytic activity/Vol] 18 U/L Normal 14-59 [facility] Comment on above: Performed By: #### C MP ####[facility] Hpqhygoygj69[address] [place] [address]Dr. Airam Tripathi Anion gap [Moles/Vol] 11.1 mmol/L Normal [facility] Comment on above: Performed By: #### C MP ####[facility] Jmlsqfobhp6792 [place] [address]Dr. Airam Tripathi AST [Catalytic activity/Vol] 26 U/L Normal 15-37 [facility] Comment on above: Performed By: #### C MP ####[facility] Jabgfsjttl57[address] [place] [address]Dr. Airam Tripathi Bilirubin [Mass/Vol] 0.3 mg/dL Normal 0.2-1.0 [facility] Comment on above: Performed By: #### C MP ####[facility] Nmnduhvyps9526 [place] [address]Dr. Airam Tripathi Calcium [Mass/Vol] 8.5 mg/dL Normal 8.5-10.1 [facility] Comment on above: Performed By: #### C MP ####[facility] Gvmmqxqdds70[address] [place], [place] [address]Dr. Airam Tripathi Chloride [Moles/Vol] 98 mmol/L Normal 98-107 [facility] Comment on above: Performed By: #### C MP ####[facility] Nflpromsww146[address] [place], [place] [address]Dr. Airam Tripathi CO2 [Moles/Vol] 23.9 mmol/L Normal 21.0-32.0 [facility] Comment on above: Performed By: #### C MP ####[facility] Shiewtsxmd3955[address] [place], [place] [address]Dr. Airam Tripathi Creatinine [Mass/Vol] 1.40 mg/dL Critically high 0.55-1.02 [facility] Comment on above: Performed By: #### C MP ####[facility] Vcvmijrcyi4[address] [place], [place] [address]Dr. Airam Tripathi EGFR-AF VENEZUELAN 46 mL/min/1.73m2 Critically low >=60 [facility] Comment on above: Performed By: #### C MP ####[facility] Szhmuzlaup[address] [place], [place] [address]Dr. Airam Tripathi EGFR-NON AF VENEZUELAN 38 mL/min/1.73m2 Critically low >=60 [facility] Comment on above: Performed By: #### C MP ####[facility] Ylkmmyxwyi8[address] [place], [place] [address]Dr. Airam Tripathi Globulin (S) [Mass/Vol] 3.3 g/dL Normal [facility] Comment on above: Performed By: #### C MP ####[facility] Wosedtgzjg9756[address] [place], [place] [address]Dr. Airam Tripathi Glucose [Mass/Vol] 72 mg/dL Critically low 74-106 [facility] Comment on above: Performed By: #### C MP ####[facility] Nzwvpvinni74[address] [place] [address]Dr. Airam Tripathi Potassium [Moles/Vol] 5.0 mmol/L Normal 3.5-5.1 [facility] Comment on above: Performed By: #### C MP ####[facility] Tyrlczlmqn8694 [place] [address]Dr. Airam Tripathi Protein [Mass/Vol] 6.8 g/dL Normal 6.4-8.2 [facility] Comment on above: Performed By: #### C MP ####[facility] Amzdqctuwq730[address] [place], [place] [address]Dr. Airam Tripathi Sodium [Moles/Vol] 128 mmol/L Critically low 136-145 [facility] Comment on above: Performed By: #### C MP ####[facility] Qiievceabz8865[address] [place], [place] [address]Dr. Airam Tripathi Urea nitrogen [Mass/Vol] 27.0 mg/dL Critically high 7.0-18.0 [facility] Comment on above: Performed By: #### C MP ####[facility] Kmqamswcdq494[address] [place], [place] [address]Dr. Airam Tripathi Urea nitrogen/Creatinine [Mass ratio] 19.3 mg/mg Normal [facility] Comment on above: Performed By: #### C MP ####[facility] Ohjkbgocex4727[address] [place], [place] [address]Dr. Airam Tripathi OSMOLALITYon 09-10-2022 Osmolality [Osmolality] 275 mosm/kg Normal 275-295 [facility] Comment on above: Performed By: #### O SMO ####[facility] Cnspmvpiwx7244[address] [place], [place] [address]Dr. Airam Tripathi CBC AUTO DIFFon 09-08-2022 BASO # 0.0 103/ul Normal 0.0-0.1 [facility] Comment on above: Performed By: #### C BC ####[facility] Qtjxdpqdyo[address] [place], [place] [address]Dr. Airam Tripathi Basophils/100 WBC (Bld) 0.5 % Normal 0.2-2.0 [facility] Comment on above: Performed By: #### C BC ####[facility] Wsqaunpzrd[address] [place] [address]Dr. Airam Tripathi EO # 0.1 103/ul Normal 0.0-0.7 [facility] Comment on above: Performed By: #### C BC ####[facility] Jxqzidfrur8[address] [place], [place] [address]Dr. Airam Tripathi Eosinophils/100 WBC (Bld) 1.7 % Normal 0.9-7.0 [facility] Comment on above: Performed By: #### C BC ####[facility] Moiilhffde8267[address] [place], [place] [address]Dr. Airam Tripathi Erythrocyte distribution width (RBC) [Ratio] 14.7 % Normal 11.0-15.0 [facility] Comment on above: Performed By: #### C BC ####[facility] Pilwnjqvit0122[address] [place], [place] [address]Dr. Selenaneil Tripathi Hematocrit (Bld) [Volume fraction] 30.3 % Critically low 36.0-48.0 [facility] Comment on above: Performed By: #### C BC ####[facility] Lxutzbovwc[address] [place], [place] [address]Dr. Airam Tripathi Hemoglobin (Bld) [Mass/Vol] 9.3 g/dL Critically low 12.0-16.0 [facility] Comment on above: Performed By: #### C BC ####[facility] Jostzxbqon[address] [place], [place] [address]Dr. Airam Tripathi IG # 0.03 10e3/ul Normal 0.00-0.03 [facility] Comment on above: Performed By: #### C BC ####[facility] Bhdhjtzsiw[address] [place], [place] [address]Dr. Selenaneil Tripathi IG % 0.5 % Normal 0.0-0.5 [facility] Comment on above: Performed By: #### C BC ####[facility] Sjpjlohjyk[address] [place], [place] [address]DrKianna Tripathi LYMPH # 0.9 103/ul Critically low 1.2-3.8 [facility] Comment on above: Performed By: #### C BC ####[facility] Nvwaphsugr[address] [place] [address]Dr. Airam Deuce Lymphocytes/100 WBC (Bld) 13.6 % Critically low 20.5-60.0 [facility] Comment on above: Performed By: #### C BC ####[facility] Nxflwroauc8749 [place] [address]DrKianna Tripathi MANUAL DIFF REQ NO Normal [facility] Comment on above: Performed By: #### C BC ####[facility] Zlvhbwaifj6130 [place] [phone]. Airam Tripathi MCH (RBC) [Entitic mass] 27.4 pg Normal 26.7-34.0 [facility] Comment on above: Performed By: #### C BC ####[facility] Nmeialidin0529[address] [place], [place] [address]Dr. Airam Tripathi MCHC (RBC) [Mass/Vol] 30.7 g/dL Normal 29.9-35.2 [facility] Comment on above: Performed By: #### C BC ####[facility] Bomqciwysk[address] [place], [place] [address]DrKianna Tripathi MCV (RBC) [Entitic vol] 89.4 fL Normal 81.0-99.0 [facility] Comment on above: Performed By: #### C BC ####[facility] Zjxdihwlyg[address] [place], [place] [address]Dr. Airam Tripathi MONO # 0.5 103/ul Normal 0.3-0.8 [facility] Comment on above: Performed By: #### C BC ####[facility] Hfcqskcugn[address] [place], [place] [id number] Tripathi Monocytes/100 WBC (Bld) 8.0 % Normal 1.7-12.0 [facility] Comment on above: Performed By: #### C BC ####[facility] Zuctzsolrs[address] [place], [place] [address]DrKianna Tripathi NEUT # 5.0 103/ul Normal 1.4-6.5 [facility] Comment on above: Performed By: #### C BC ####[facility] Rlydaqcoux6048 [place] [id number]. Selenaneil Deuce Neutrophils/100 WBC (Bld) 75.7 % Critically high 43.0-75.0 [facility] Comment on above: Performed By: #### C BC ####[facility] Wfctrqiucq7843 [place] [phone]. Selenaneil Deuce Platelet mean volume (Bld) [Entitic vol] 10.4 fL Normal 9.5-13.5 [facility] Comment on above: Performed By: #### C BC ####[facility] Chaafmtnek[address] [place] [address]Dr. Airam Tripathi PLT 315 103/ul Normal 150-450 [facility] Comment on above: Performed By: #### C BC ####[facility] Ueszatznhu7061 [place] [address]DrKianna Tripathi RBC 3.39 106/ul Critically low 4.20-5.40 [facility] Comment on above: Performed By: #### C BC ####[facility] Vyilqlojlv9429 [place] [phone]. Airam Tripathi WBC 6.5 103/ul Normal 4.0-11.0 [facility] Comment on above: Performed By: #### C BC ####[facility] Gvbvwxvtzu6061 [place] [id number] Tripathi PROF 14(COMP METB)on 023 Albumin [Mass/Vol] 3.1 g/dL Critically low 3.4-5.0 [facility] Comment on above: Performed By: #### C MP ####[facility] Lugkkylvds1771 [place] [phone] Tripathi Albumin/Globulin [Mass ratio] 1.0 {ratio} Normal [facility] Comment on above: Performed By: #### C MP ####[facility] Vxmtrxfnjc5175 [place] [phone] Tripathi ALP [Catalytic activity/Vol] 126 U/L Critically high 46-116 [facility] Comment on above: Performed By: #### C MP ####[facility] Xxnwyaghru2845 [place] [phone]. Airam Tripathi ALT [Catalytic activity/Vol] 18 U/L Normal 14-59 [facility] Comment on above: Performed By: #### C MP ####[facility] Gnvzjhjncu3032 [place] [phone]. Airam Deuce Anion gap [Moles/Vol] 11.4 mmol/L Normal Th [facility] Comment on above: Performed By: #### C MP ####[facility] Wopwfecnsn7802 [place] [phone]. Airam Deuce AST [Catalytic activity/Vol] 25 U/L Normal 15-37 [facility] Comment on above: Performed By: #### C MP ####[facility] Ywrvvvwffj9152 [place] [address]Dr. Airam Deuce Bilirubin [Mass/Vol] 0.3 mg/dL Normal 0.2-1.0 [facility] Comment on above: Performed By: #### C MP ####[facility] Itybsolvla2464 [place] [phone]. Airam Deuce Calcium [Mass/Vol] 8.6 mg/dL Normal 8.5-10.1 [facility] Comment on above: Performed By: #### C MP ####[facility] Zxzbhwwwsp1860 [place] [address]Dr. Airam Tripathi Chloride [Moles/Vol] 97 mmol/L Critically low 98-107 [facility] Comment on above: Performed By: #### C MP ####[facility] Phpclomtpv1631 [place] [phone]. Airam Deuce CO2 [Moles/Vol] 26.1 mmol/L Normal 21.0-32.0 [facility] Comment on above: Performed By: #### C MP ####[facility] Ypdhaagrpk4303 [place] [phone]. Airam Tripathi Creatinine [Mass/Vol] 1.07 mg/dL Critically high 0.55-1.02 [facility] Comment on above: Performed By: #### C MP ####[facility] Cscnbiihhg7567 [place] [phone]. Airam Tripathi EGFR-AF VENEZUELAN >60 Normal >=60 [facility] Comment on above: Performed By: #### C MP ####[facility] Xjsnympwxd2076 [place] [phone]. Airam Deuce EGFR-NON AF VENEZUELAN 52 mL/min/1.73m2 Critically low >=60 [facility] Comment on above: Performed By: #### C MP ####[facility] Suduwxvhmm0537 [place] [phone]. Airam Deuce Globulin (S) [Mass/Vol] 3.2 g/dL Normal [facility] Comment on above: Performed By: #### C MP ####[facility] Loowwcyelw1850 [place] [address]Dr. Selenaneil Deuce Glucose [Mass/Vol] 83 mg/dL Normal 74-106 [facility] Comment on above: Performed By: #### C MP ####[facility] Huoqbxnkbu9705 [place] [address]Dr. Airam Deuce Potassium [Moles/Vol] 5.5 mmol/L Critically high 3.5-5.1 [facility] Comment on above: Performed By: #### C MP ####[facility] Qwccolmuto6449 [place] [address]Dr. Selenaneil Deuce Protein [Mass/Vol] 6.3 g/dL Critically low 6.4-8.2 [facility] Comment on above: Performed By: #### C MP ####[facility] Cokfsdwzmv27[address] [place] [address]Dr. Selenaneil Tripathi Sodium [Moles/Vol] 129 mmol/L Critically low 136-145 Th [facility] Comment on above: Performed By: #### C MP ####[facility] Sdyomrgnuc16[address] [place] [address]Dr. Selenaneil Deuce Urea nitrogen [Mass/Vol] 37.0 mg/dL Critically high 7.0-18.0 [facility] Comment on above: Performed By: #### C MP ####[facility] Mfjixhihqe6210 [place] [address]Dr. Airam Tripathi Urea nitrogen/Creatinine [Mass ratio] 34.6 mg/mg Normal [facility] Comment on above: Performed By: #### C MP ####[facility] Ipyzllyquc4077 [place] [phone]. Airam Tripathi OSMOLALITYon 09-02-2022 Osmolality [Osmolality] 279 mosm/kg Normal 275-295 [facility] Comment on above: Performed By: #### O SMO ####[facility] Moqxjtuoex[address] [place], [place] [address]Dr. Airam Deuce CBC AUTO DIFFon 08-31-2022 BASO # 0.0 103/ul Normal 0.0-0.1 [facility] Comment on above: Performed By: #### C BC ####[facility] Eapejnixmz4632[address] [place], [place] [address]Dr. Airam Tripathi Basophils/100 WBC (Bld) 0.4 % Normal 0.2-2.0 [facility] Comment on above: Performed By: #### C BC ####[facility] Hjsibphcih023[address] [place], [place] [address]Dr. Airam Deuce EO # 0.2 103/ul Normal 0.0-0.7 [facility] Comment on above: Performed By: #### C BC ####[facility] Lfvxofjzmw575[address] [place], [place] [address]Dr. Selenaneli Tripathi Eosinophils/100 WBC (Bld) 3.2 % Normal 0.9-7.0 [facility] Comment on above: Performed By: #### C BC ####[facility] Ozphfqrspr4799[address] [place], [place] [address]Dr. Airam Deuce Erythrocyte distribution width (RBC) [Ratio] 14.4 % Normal 11.0-15.0 [facility] Comment on above: Performed By: #### C BC ####[facility] Mhkzdldewj7055[address] [place], [place] [address]Dr. Selenaneil Deuce Hematocrit (Bld) [Volume fraction] 27.8 % Critically low 36.0-48.0 [facility] Comment on above: Performed By: #### C BC ####[facility] Ofsuqrrxsf7734 [place] [address]Dr. Airam Tripathi Hemoglobin (Bld) [Mass/Vol] 8.7 g/dL Critically low 12.0-16.0 [facility] Comment on above: Performed By: #### C BC ####[facility] Eggkazuxqb8[address] [place] [address]Dr. Airam Tripathi IG # 0.05 10e3/ul Critically high 0.00-0.03 [facility] Comment on above: Performed By: #### C BC ####[facility] Grdmjtgisd8764 [place] [address]Dr. Airam Tripathi IG % 0.7 % Critically high 0.0-0.5 [facility] Comment on above: Performed By: #### C BC ####[facility] Ojvftxbpnf[address] [place], [place] [address]Dr. Airam Deuce LYMPH # 1.7 103/ul Normal 1.2-3.8 [facility] Comment on above: Performed By: #### C BC ####[facility] Tieutxjvsl78[address] [place], [place] [address]Dr. Selenaneil Tripathi Lymphocytes/100 WBC (Bld) 23.6 % Normal 20.5-60.0 [facility] Comment on above: Performed By: #### C BC ####[facility] Ojtukbwrgw1696[address] [place], [place] [address]Dr. Selenaneil Tripathi MANUAL DIFF REQ NO Normal [facility] Comment on above: Performed By: #### C BC ####[facility] Wjpnmpaxuz8509[address] [place], [place] [address]Dr. Airam Tripathi MCH (RBC) [Entitic mass] 27.8 pg Normal 26.7-34.0 [facility] Comment on above: Performed By: #### C BC ####[facility] Gwzqcckucj3[address] [place] [address]Dr. Airam Tripathi MCHC (RBC) [Mass/Vol] 31.3 g/dL Normal 29.9-35.2 [facility] Comment on above: Performed By: #### C BC ####[facility] Qjdpltxdls8234 [place] [phone]. Airam Tripathi MCV (RBC) [Entitic vol] 88.8 fL Normal 81.0-99.0 [facility] Comment on above: Performed By: #### C BC ####[facility] Eavpnsvmcz4418 [place] [address]Dr. Airam Tripathi MONO # 0.5 103/ul Normal 0.3-0.8 [facility] Comment on above: Performed By: #### C BC ####[facility] Rochxifxuw8570 [place] [address]Dr. Airam Tripathi Monocytes/100 WBC (Bld) 6.9 % Normal 1.7-12.0 [facility] Comment on above: Performed By: #### C BC ####[facility] Fljlbukyzz[address] [place], [place] [address]Dr. Airam Tripathi NEUT # 4.7 103/ul Normal 1.4-6.5 [facility] Comment on above: Performed By: #### C BC ####[facility] Mfcvkomile[address] [place], [place] [address]Dr. Airam Deuce Neutrophils/100 WBC (Bld) 65.2 % Normal 43.0-75.0 [facility] Comment on above: Performed By: #### C BC ####[facility] Zvwsnaczqw[address] [place], [place] [address]Dr. Airam Deuce Platelet mean volume (Bld) [Entitic vol] 9.8 fL Normal 9.5-13.5 [facility] Comment on above: Performed By: #### C BC ####[facility] [address]bljfso[address] [place], [place] [address]Dr. Airam Deuce PLT 225 103/ul Normal 150-450 [facility] Comment on above: Performed By: #### C BC ####[facility] Ibcgxisend8[address] [place] [id number]. Selenaneil Tripathi RBC 3.13 106/ul Critically low 4.20-5.40 [facility] Comment on above: Performed By: #### C BC ####[facility] Vmtkfzsjeq[address] [place] [address]Dr. Airam Tripathi WBC 7.3 103/ul Normal 4.0-11.0 [facility] Comment on above: Performed By: #### C BC ####[facility] Oqascyeysc[address] [place] [address]Dr. Airam Tripathi PROF 14(COMP METB)on 023 Albumin [Mass/Vol] 3.0 g/dL Critically low 3.4-5.0 Th e [facility] Comment on above: Performed By: #### C MP ####[facility] Eucricyoxn[address] [place] [address]Dr. Airam Tripathi Albumin/Globulin [Mass ratio] 1.1 {ratio} Normal [facility] Comment on above: Performed By: #### C MP ####[facility] Bcomgcbnir[address] [place] [address]Dr. Airma Tripathi ALP [Catalytic activity/Vol] 132 U/L Critically high 46-116 [facility] Comment on above: Performed By: #### C MP ####[facility] Mahcvzrnqu[address] [place], [place] [address]Dr. Airam Tripathi ALT [Catalytic activity/Vol] 20 U/L Normal 14-59 [facility] Comment on above: Performed By: #### C MP ####[facility] Szmzkmzyxm[address] [place] [address]Dr. Airam Tripathi Anion gap [Moles/Vol] 9.5 mmol/L Normal [facility] Comment on above: Performed By: #### C MP ####[facility] Dcjavqkxbo17[address] [place] [address]Dr. Airam Tripathi AST [Catalytic activity/Vol] 25 U/L Normal 15-37 [facility] Comment on above: Performed By: #### C MP ####[facility] Swjrmrmxgd[address] [place] [address]Dr. Airam Tripathi Bilirubin [Mass/Vol] 0.2 mg/dL Normal 0.2-1.0 [facility] Comment on above: Performed By: #### C MP ####[facility] Ziqilwrveu4974 [place] [id number]. Airam Tripathi Calcium [Mass/Vol] 7.9 mg/dL Critically low 8.5-10.1 Th [facility] Comment on above: Performed By: #### C MP ####[facility] Hiymtkehuw5[address] [place] [phone]. Airam Deuce Chloride [Moles/Vol] 97 mmol/L Critically low 98-107 [facility] Comment on above: Performed By: #### C MP ####[facility] Amwvqljmfd8479 [place] [phone]. Airam Deuce CO2 [Moles/Vol] 27.3 mmol/L Normal 21.0-32.0 [facility] Comment on above: Performed By: #### C MP ####[facility] Wafxhixrfa[address] [place], [place] [address]Dr. Selenaneil Tripathi Creatinine [Mass/Vol] 1.58 mg/dL Critically high 0.55-1.02 [facility] Comment on above: Performed By: #### C MP ####[facility] Umdbpbrnsx[address] [place], [place] [address]Dr. Airam Deuce EGFR-AF VENEZUELAN 40 mL/min/1.73m2 Critically low >=60 [facility] Comment on above: Performed By: #### C MP ####[facility] Ivoxljgaxj[address] [place], [place] [address]Dr. Selenaneil Deuce EGFR-NON AF VENEZUELAN 33 mL/min/1.73m2 Critically low >=60 [facility] Comment on above: Performed By: #### C MP ####[facility] Rmjvihoktr5[address] [place] [phone]. Airam Tripathi Globulin (S) [Mass/Vol] 2.8 g/dL Normal [facility] Comment on above: Performed By: #### C MP ####[facility] Mqhmfecydc3495 [place] [phone]. Airam Tripathi Glucose [Mass/Vol] 111 mg/dL Critically high 74-106 [facility] Comment on above: Performed By: #### C MP ####[facility] Nmnkmypqnm4336 [place] [address]Dr. Airam Deuce Potassium [Moles/Vol] 4.8 mmol/L Normal 3.5-5.1 [facility] Comment on above: Performed By: #### C MP ####[facility] Ugrylrxmdx4[address] [place], [place] [address]Dr. Selenaneil Deuce Protein [Mass/Vol] 5.8 g/dL Critically low 6.4-8.2 Th [facility] Comment on above: Performed By: #### C MP ####[facility] Hlmkebzqtv9[address] [place], [place] [address]Dr. Airam Tripathi Sodium [Moles/Vol] 129 mmol/L Critically low 136-145 Th [facility] Comment on above: Performed By: #### C MP ####[facility] Jpicogktgp8518[address] [place], [place] [address]Dr. Airam Tripathi Urea nitrogen [Mass/Vol] 44.0 mg/dL Critically high 7.0-18.0 [facility] Comment on above: Performed By: #### C MP ####[facility] Dqjxttqnfc18[address] [place], [place] [address]Dr. Airam Tripathi Urea nitrogen/Creatinine [Mass ratio] 27.8 mg/mg Normal [facility] Comment on above: Performed By: #### C MP ####[facility] Zgdlzjxpxi4[address] [place], [place] [address]Dr. Airam Tripathi OSMOLALITYon 08-28-2022 Osmolality [Osmolality] 288 mosm/kg Normal 275-295 [facility] Comment on above: Performed By: #### O SMO ####[facility] Lalewjzvdp69[address] [place], [place] [address]DrKianna Selenaneil Tripathi CBC AUTO DIFFon 08-25-2022 BASO # 0.0 103/ul Normal 0.0-0.1 [facility] Comment on above: Performed By: #### C BC ####[facility] Eyrxwcpugj119[address] [place], [place] [address]Dr. Airam Tripathi Basophils/100 WBC (Bld) 0.5 % Normal 0.2-2.0 [facility] Comment on above: Performed By: #### C BC ####[facility] Ifzhvzczex[address] [place], [place] [address]DrKianna Tripathi EO # 0.4 103/ul Normal 0.0-0.7 [facility] Comment on above: Performed By: #### C BC ####[facility] Ndmdrhtspt6717[address] [place], [place] [address]DrKianna Tripathi Eosinophils/100 WBC (Bld) 4.8 % Normal 0.9-7.0 [facility] Comment on above: Performed By: #### C BC ####[facility] Wdvzzyjfhh4136[address] [place], [place] [address]Dr. Airam Tripathi Erythrocyte distribution width (RBC) [Ratio] 14.2 % Normal 11.0-15.0 [facility] Comment on above: Performed By: #### C BC ####[facility] Cscceymbvn24[address] [place], [place] [address]DrKianna Tripathi Hematocrit (Bld) [Volume fraction] 31.1 % Critically low 36.0-48.0 [facility] Comment on above: Performed By: #### C BC ####[facility] Odkupgzqeu07[address] [place], [place] [address]DrKianna Tripathi Hemoglobin (Bld) [Mass/Vol] 9.7 g/dL Critically low 12.0-16.0 [facility] Comment on above: Performed By: #### C BC ####[facility] Spmqjtoctp[address]10[address] [place], [place] [address]DrKianna Tripathi IG # 0.05 10e3/ul Critically high 0.00-0.03 [facility] Comment on above: Performed By: #### C BC ####[facility] Ygdiroosuu9330[address] [place], [place] [address]DrKianna Tripathi IG % 0.6 % Critically high 0.0-0.5 [facility] Comment on above: Performed By: #### C BC ####[facility] Yjnaxcnxhq6847[address] [place], [place] [address]Dr. Airam Tripathi LYMPH # 1.7 103/ul Normal 1.2-3.8 [facility] Comment on above: Performed By: #### C BC ####[facility] Fpgqfdbbtf6586 [place] [address]DrKianna Tripathi Lymphocytes/100 WBC (Bld) 19.6 % Critically low 20.5-60.0 [facility] Comment on above: Performed By: #### C BC ####[facility] Uznkfxoapc7[address] [place], [place] [address]DrKianna Tripathi MANUAL DIFF REQ NO Normal [facility] Comment on above: Performed By: #### C BC ####[facility] Ghnuypdard[address] [place], [place] [address]DrKianna Tripathi MCH (RBC) [Entitic mass] 28.2 pg Normal 26.7-34.0 [facility] Comment on above: Performed By: #### C BC ####[facility] Lycenelnvq12[address] [place], [place] [address]DrKinana Tripathi MCHC (RBC) [Mass/Vol] 31.2 g/dL Normal 29.9-35.2 [facility] Comment on above: Performed By: #### C BC ####[facility] Axgopspeyn[address] [place], [place] [address]DrKianna Tripathi MCV (RBC) [Entitic vol] 90.4 fL Normal 81.0-99.0 [facility] Comment on above: Performed By: #### C BC ####[facility] Sozhbxfmdm4[address] [place], [place] [address]DrKianna Tripathi MONO # 0.6 103/ul Normal 0.3-0.8 [facility] Comment on above: Performed By: #### C BC ####[facility] Zezwdmapwk0[address] [place], [place] [address]DrKianna Tripathi Monocytes/100 WBC (Bld) 7.4 % Normal 1.7-12.0 [facility] Comment on above: Performed By: #### C BC ####[facility] Gpniuaymqa[address] [place], [place] [address]DrKianna Tripathi NEUT # 5.8 103/ul Normal 1.4-6.5 [facility] Comment on above: Performed By: #### C BC ####[facility] Kgzmlufiee0637 [place] [address]DrKianna Tripathi Neutrophils/100 WBC (Bld) 67.1 % Normal 43.0-75.0 [facility] Comment on above: Performed By: #### C BC ####[facility] Wubomrzact6133 [place] [address]DrKianna Tripathi Platelet mean volume (Bld) [Entitic vol] 9.9 fL Normal 9.5-13.5 [facility] Comment on above: Performed By: #### C BC ####[facility] Smjkmmdmwc234[address] [place], [place] [address]DrKianna Tripathi PLT 320 103/ul Normal 150-450 [facility] Comment on above: Performed By: #### C BC ####[facility] Zvngdclxad[address] [place], [place] [address]DrKianna Tripathi RBC 3.44 106/ul Critically low 4.20-5.40 [facility] Comment on above: Performed By: #### C BC ####[facility] Wcpupmmivl8[address] [place], [place] [address]DrKianna Tripathi WBC 8.6 103/ul Normal 4.0-11.0 [facility] Comment on above: Performed By: #### C BC ####[facility] Hfvcoloqza468[address] [place], [place] [address]DrKianna Tripathi PROF 14(COMP METB)on 023 Albumin [Mass/Vol] 3.4 g/dL Normal 3.4-5.0 [facility] Comment on above: Performed By: #### C MP ####[facility] Jnnzodwiwl9[address] [place], [place] [address]DrKianna Tripathi Albumin/Globulin [Mass ratio] 1.1 {ratio} Normal [facility] Comment on above: Performed By: #### C MP ####[facility] Owferdjjhl[address] [place], [place] [address]DrKianna Tripathi ALP [Catalytic activity/Vol] 170 U/L Critically high 46-116 [facility] Comment on above: Performed By: #### C MP ####[facility] Anjewsjrum13[address] [place] [address]Dr. Airam Tripathi ALT [Catalytic activity/Vol] 22 U/L Normal 14-59 [facility] Comment on above: Performed By: #### C MP ####[facility] Rovjqearhd3214 [place] [address]Dr. Airam Tripathi Anion gap [Moles/Vol] 14.4 mmol/L Normal Th [facility] Comment on above: Performed By: #### C MP ####[facility] Dxkudovhjz54[address] [place], [place] [address]Dr. Airam Tripathi AST [Catalytic activity/Vol] 25 U/L Normal 15-37 [facility] Comment on above: Performed By: #### C MP ####[facility] Nhisjqwpxa877[address] [place], [place] [address]Dr. Airam Deuce Bilirubin [Mass/Vol] 0.3 mg/dL Normal 0.2-1.0 [facility] Comment on above: Performed By: #### C MP ####[facility] Bbxbiwtwtd23[address] [place], [place] [address]Dr. Airam Tripathi Calcium [Mass/Vol] 8.2 mg/dL Critically low 8.5-10.1 [facility] Comment on above: Performed By: #### C MP ####[facility] Gwpebebcoi9[address] [place], [place] [address]Dr. Airam Tripathi Chloride [Moles/Vol] 98 mmol/L Normal 98-107 [facility] Comment on above: Performed By: #### C MP ####[facility] Yputggwqwz5126[address] [place], [place] [address]Dr. Airam Tripathi CO2 [Moles/Vol] 27.8 mmol/L Normal 21.0-32.0 [facility] Comment on above: Performed By: #### C MP ####[facility] Wbkcqskiyo[address] [place], [place] [address]Dr. Airam Deuce Creatinine [Mass/Vol] 1.82 mg/dL Critically high 0.55-1.02 [facility] Comment on above: Performed By: #### C MP ####[facility] Zdhrlxuqux33[address] [place] [address]Dr. Selenaneil Deuce EGFR-AF VENEZUELAN 34 mL/min/1.73m2 Critically low >=60 [facility] Comment on above: Performed By: #### C MP ####[facility] Zbfyfipnrt3995 [place] [address]Dr. Airam Tripathi EGFR-NON AF VENEZUELAN 28 mL/min/1.73m2 Critically low >=60 [facility] Comment on above: Performed By: #### C MP ####[facility] Rqegyqwnyw0134 [place] [address]Dr. Airam Tripathi Globulin (S) [Mass/Vol] 3.2 g/dL Normal [facility] Comment on above: Performed By: #### C MP ####[facility] Gzkxbwghtv9168[address] [place], [place] [address]Dr. Airam Tripathi Glucose [Mass/Vol] 78 mg/dL Normal 74-106 [facility] Comment on above: Performed By: #### C MP ####[facility] Caoxfemfyp549[address] [place], [place] [address]Dr. Airam Tripathi Potassium [Moles/Vol] 5.2 mmol/L Critically high 3.5-5.1 [facility] Comment on above: Performed By: #### C MP ####[facility] Yhhntesznb2817[address] [place], [place] [address]Dr. Airam Tripathi Protein [Mass/Vol] 6.6 g/dL Normal 6.4-8.2 [facility] Comment on above: Performed By: #### C MP ####[facility] Lmiaadpkgx6633 [place] [address]Dr. Airam Tripathi Sodium [Moles/Vol] 135 mmol/L Critically low 136-145 Th [facility] Comment on above: Performed By: #### C MP ####[facility] Xneommwltf6678 [place] [address]Dr. Airam Tripathi Urea nitrogen [Mass/Vol] 51.0 mg/dL Critically high 7.0-18.0 [facility] Comment on above: Performed By: #### C MP ####[facility] Evqwzwlavy343[address] [place], [place] [address]Dr. Airam Tripathi Urea nitrogen/Creatinine [Mass ratio] 28.0 mg/mg Normal [facility] Comment on above: Performed By: #### C MP ####[facility] Vkwkqmwclw7[address] [place], [place] [address]Dr. Airam Tripathi OSMOLALITYon 08-18-2022 Osmolality [Osmolality] 280 mosm/kg Normal 275-295 [facility] Comment on above: Performed By: #### O SMO ####[facility] Jvpyqaazfy0267[address] [place], [place] [address]Dr. Airam Tripathi CBC AUTO DIFFon 08-16-2022 BASO # 0.0 103/ul Normal 0.0-0.1 [facility] Comment on above: Performed By: #### C BC ####[facility] Sdtqwmdbrj514[address] [place], [place] [address]DrKianna Tripathi Basophils/100 WBC (Bld) 0.2 % Normal 0.2-2.0 [facility] Comment on above: Performed By: #### C BC ####[facility] Lvanjnqqgn917[address] [place], [place] [address]DrKianna Tripathi EO # 0.2 103/ul Normal 0.0-0.7 [facility] Comment on above: Performed By: #### C BC ####[facility] Exnajsftwh[address] [place], [place] [address]DrKianna Tripathi Eosinophils/100 WBC (Bld) 2.4 % Normal 0.9-7.0 [facility] Comment on above: Performed By: #### C BC ####[facility] Xhcajhnnta4388[address] [place], [place] [address]Dr. Airam Tripathi Erythrocyte distribution width (RBC) [Ratio] 14.2 % Normal 11.0-15.0 [facility] Comment on above: Performed By: #### C BC ####[facility] Zvraenwvng457[address] [place], [place] [address]Dr. Airam Tripathi Hematocrit (Bld) [Volume fraction] 30.1 % Critically low 36.0-48.0 [facility] Comment on above: Performed By: #### C BC ####[facility] Nbgizzbtqj8134 [place] [address]DrKianna Tripathi Hemoglobin (Bld) [Mass/Vol] 9.2 g/dL Critically low 12.0-16.0 [facility] Comment on above: Performed By: #### C BC ####[facility] Iwakqgnimc8[address] [place], [place] [address]DrKianna Tripathi IG # 0.04 10e3/ul Critically high 0.00-0.03 [facility] Comment on above: Performed By: #### C BC ####[facility] Hvepavajvy8880[address] [place], [place] [address]DrKianna Tripathi IG % 0.4 % Normal 0.0-0.5 [facility] Comment on above: Performed By: #### C BC ####[facility] Gosomhlajm5534[address] [place], [place] [address]DrKianna Tripathi LYMPH # 0.9 103/ul Critically low 1.2-3.8 [facility] Comment on above: Performed By: #### C BC ####[facility] Wncmmwmewy4725[address] [place], [place] [address]DrKianna Tripathi Lymphocytes/100 WBC (Bld) 9.3 % Critically low 20.5-60.0 [facility] Comment on above: Performed By: #### C BC ####[facility] Jitbspnqba8360[address] [place], [place] [address]DrKianna Tripathi MANUAL DIFF REQ NO Normal [facility] Comment on above: Performed By: #### C BC ####[facility] Gdaqkuzqgz6346[address] [place], [place] [address]DrKianna Tripathi MCH (RBC) [Entitic mass] 27.7 pg Normal 26.7-34.0 [facility] Comment on above: Performed By: #### C BC ####[facility] Ylclfijfeh[address] [place], [place] [address]DrKianna Tripathi MCHC (RBC) [Mass/Vol] 30.6 g/dL Normal 29.9-35.2 [facility] Comment on above: Performed By: #### C BC ####[facility] Psasyyncxi26[address] [place] [address]Dr. Airam Deuce MCV (RBC) [Entitic vol] 90.7 fL Normal 81.0-99.0 [facility] Comment on above: Performed By: #### C BC ####[facility] Qvsxaitdhd4197[address] [place], [place] [address]DrKianna Tripathi MONO # 0.5 103/ul Normal 0.3-0.8 [facility] Comment on above: Performed By: #### C BC ####[facility] Uqogxblwwj2170[address] [place], [place] [address]Dr. Airam Tripathi Monocytes/100 WBC (Bld) 5.3 % Normal 1.7-12.0 [facility] Comment on above: Performed By: #### C BC ####[facility] Dsjigwwtdi9406[address] [place], [place] [address]Dr. Airam Tripathi NEUT # 7.7 103/ul Critically high 1.4-6.5 [facility] Comment on above: Performed By: #### C BC ####[facility] Qnbyqycvmi1886[address] [place], [place] [address]Dr. Airam Tripathi Neutrophils/100 WBC (Bld) 82.4 % Critically high 43.0-75.0 [facility] Comment on above: Performed By: #### C BC ####[facility] Dbkhmkgatp3144[address] [place], [place] [address]Dr. Airam Tripathi Platelet mean volume (Bld) [Entitic vol] 9.8 fL Normal 9.5-13.5 [facility] Comment on above: Performed By: #### C BC ####[facility] Wesasdmtos3270[address] [place], [place] [address]Dr. Airam Tripathi PLT 285 103/ul Normal 150-450 [facility] Comment on above: Performed By: #### C BC ####[facility] Mwxwspwppc45[address] [place], [place] [address]Dr. Airam Tripathi RBC 3.32 106/ul Critically low 4.20-5.40 [facility] Comment on above: Performed By: #### C BC ####[facility] Ippyjhpuyk[address] [place] [address]Dr. Airam Tripathi WBC 9.4 103/ul Normal 4.0-11.0 [facility] Comment on above: Performed By: #### C BC ####[facility] Uybbuwbgsm[address] [place] [address]Dr. Airam Tripathi MRI WRIST RT WO CONon 2022 MRI WRIST RT WO CON Normal [facility] PROF 14(COMP METB)on 023 Albumin [Mass/Vol] 3.1 g/dL Critically low 3.4-5.0 [facility] Comment on above: Performed By: #### C MP ####[facility] Icqrbihmwo5[address] [place], [place] [address]Dr. Selenaneil Deuce Albumin/Globulin [Mass ratio] 0.9 {ratio} Normal [facility] Comment on above: Performed By: #### C MP ####[facility] Dbqnbkyuxh69[address] [place] [address]Dr. Selenaneil Deuce ALP [Catalytic activity/Vol] 162 U/L Critically high 46-116 [facility] Comment on above: Performed By: #### C MP ####[facility] Opnsfuqkqs8913[address] [place], [place] [address]Dr. Airam Tripathi ALT [Catalytic activity/Vol] 19 U/L Normal 14-59 [facility] Comment on above: Performed By: #### C MP ####[facility] Ayupulsdmg9101 [place] [id number]. Airam Tripathi Anion gap [Moles/Vol] 13.0 mmol/L Normal [facility] Comment on above: Performed By: #### C MP ####[facility] Aooyztknkg19[address] [place] [address]Dr. Airam Tripathi AST [Catalytic activity/Vol] 21 U/L Normal 15-37 [facility] Comment on above: Performed By: #### C MP ####[facility] Qpmbekvvkq9177 [place] [id number]. Airam Tripathi Bilirubin [Mass/Vol] 0.3 mg/dL Normal 0.2-1.0 [facility] Comment on above: Performed By: #### C MP ####[facility] Ezwqobhkrb5191 [place] [id number]. Airam Tripathi Calcium [Mass/Vol] 8.4 mg/dL Critically low 8.5-10.1 Th e [facility] Comment on above: Performed By: #### C MP ####[facility] Rcpvtpkbut6580 [place] [id number]. Airam Tripathi Chloride [Moles/Vol] 103 mmol/L Normal 98-107 [facility] Comment on above: Performed By: #### C MP ####[facility] Vmklqalkfm[address] [place], [place] [address]Dr. Airam Tripathi CO2 [Moles/Vol] 23.3 mmol/L Normal 21.0-32.0 [facility] Comment on above: Performed By: #### C MP ####[facility] Jvbjdpujuh2072 [place] [id number]. Airam Tripathi Creatinine [Mass/Vol] 1.02 mg/dL Normal 0.55-1.02 [facility] Comment on above: Performed By: #### C MP ####[facility] Wjufajklgm1591 [place] [id number]. Airam Tripathi EGFR-AF VENEZUELAN >60 Normal >=60 [facility] Comment on above: Performed By: #### C MP ####[facility] Qhnazperol7342 [place] [id number]. Airam Deuce EGFR-NON AF VENEZUELAN 55 mL/min/1.73m2 Critically low >=60 [facility] Comment on above: Performed By: #### C MP ####[facility] [address]sujitczik[address] [place], [place] [address]Dr. Airam Tripathi Globulin (S) [Mass/Vol] 3.4 g/dL Normal [facility] Comment on above: Performed By: #### C MP ####[facility] Sehtgqpypo1118 [place] [id number]. Airam Tripathi Glucose [Mass/Vol] 88 mg/dL Normal 74-106 [facility] Comment on above: Performed By: #### C MP ####[facility] [address] [place] [address]Dr. Airam Tripathi Potassium [Moles/Vol] 4.3 mmol/L Normal 3.5-5.1 [facility] Comment on above: Performed By: #### C MP ####[facility] G[address]ruifxle[address] [place] [address]Dr. Airam Tripathi Protein [Mass/Vol] 6.5 g/dL Normal 6.4-8.2 [facility] Comment on above: Performed By: #### C MP ####[facility] Rshckfguro[address] [place] [address]Dr. Airam Tripathi Sodium [Moles/Vol] 135 mmol/L Critically low 136-145 [facility] Comment on above: Performed By: #### C MP ####[facility] [address]fe[address]azdz[address] [place], [place] [address]Dr. Airam Tripathi Urea nitrogen [Mass/Vol] 27.0 mg/dL Critically high 7.0-18.0 [facility] Comment on above: Performed By: #### C MP ####[facility] Lbzdxqdvie[address] [place], [place] [address]Dr. Airam Tripathi Urea nitrogen/Creatinine [Mass ratio] 26.5 mg/mg Normal [facility] Comment on above: Performed By: #### C MP ####[facility] Ytfvesbpqi9125[address] [place], [place] [address]Dr. Airam Tripathi CT HEAD WO CONon 08-06-2022 CT HEAD WO CON Normal [facility] CT LSPINE WO CONon 3 CT LSPINE WO CON Normal [facility] XR HAND RT MIN 3Von 08-06-19 23 XR HAND RT MIN 3V Normal [facility] XR KNEE LT 4V or >on 023 XR KNEE LT 4V or > Normal [facility] XR WRIST RT MIN 3 Von 2022 XR WRIST RT MIN 3 V Normal [facility] OSMOLALITYon 08-05-2022 Osmolality [Osmolality] 282 mosm/kg Normal 275-295 [facility] Comment on above: Performed By: #### O SMO ####[facility] [address]dvdssf[address] [place] [address]Dr. Airam Tripathi CBC AUTO DIFFon 08-03-2022 BASO # 0.0 103/ul Normal 0.0-0.1 [facility] Comment on above: Performed By: #### C BC ####[facility] Mgbawgmicw[address] [place] [address]Dr. Selenaneil Tripathi Basophils/100 WBC (Bld) 0.5 % Normal 0.2-2.0 [facility] Comment on above: Performed By: #### C BC ####[facility] Lvmrvklvit[address] [place], [place] [address]Dr. Selenaneil Tripathi EO # 0.5 103/ul Normal 0.0-0.7 [facility] Comment on above: Performed By: #### C BC ####[facility] Ulcewlbcao[address] [place], [place] [address]Dr. Selenaneil Tripathi Eosinophils/100 WBC (Bld) 5.2 % Normal 0.9-7.0 [facility] Comment on above: Performed By: #### C BC ####[facility] Nnbveidtte[address] [place] [address]Dr. Selenaneil Tripathi Erythrocyte distribution width (RBC) [Ratio] 14.3 % Normal 11.0-15.0 [facility] Comment on above: Performed By: #### C BC ####[facility] [address]ppjijthw[address] [place], [place] [address]Dr. Airam Tripathi Hematocrit (Bld) [Volume fraction] 31.4 % Critically low 36.0-48.0 [facility] Comment on above: Performed By: #### C BC ####[facility] Tiohfwykxn[address] [place] [address]Dr. Airam Tripathi Hemoglobin (Bld) [Mass/Vol] 9.5 g/dL Critically low 12.0-16.0 [facility] Comment on above: Performed By: #### C BC ####[facility] Ycrinxhjaq[address] [place] [id number]. Airam Tripathi IG # 0.05 10e3/ul Critically high 0.00-0.03 [facility] Comment on above: Performed By: #### C BC ####[facility] Czljqbpggb4[address] [place] [id number]. Airam Tripathi IG % 0.6 % Critically high 0.0-0.5 [facility] Comment on above: Performed By: #### C BC ####[facility] Ifdbphltol35[address] [place] [address]Dr. Airam Tripathi LYMPH # 1.5 103/ul Normal 1.2-3.8 [facility] Comment on above: Performed By: #### C BC ####[facility] Jijlsuertk[address] [place], [place] [address]Dr. Airam Tripathi Lymphocytes/100 WBC (Bld) 17.6 % Critically low 20.5-60.0 [facility] Comment on above: Performed By: #### C BC ####[facility] Pjoivdcuho[address] [place], [place] [address]Dr. Airam Tripathi MANUAL DIFF REQ NO Normal [facility] Comment on above: Performed By: #### C BC ####[facility] Pcnvjgngdo[address] [place], [place] [address]Dr. Airam Tripathi MCH (RBC) [Entitic mass] 29.0 pg Normal 26.7-34.0 [facility] Comment on above: Performed By: #### C BC ####[facility] Bwndigcrff5[address] [place], [place] [address]Dr. Airam Tripathi MCHC (RBC) [Mass/Vol] 30.3 g/dL Normal 29.9-35.2 [facility] Comment on above: Performed By: #### C BC ####[facility] Kwxohpyvzm[address] [place] [address]Dr. Airam Tripathi MCV (RBC) [Entitic vol] 95.7 fL Normal 81.0-99.0 [facility] Comment on above: Performed By: #### C BC ####[facility] Fhfhcwxqtx64[address] [place] [phone]. Airam Tripathi MONO # 0.7 103/ul Normal 0.3-0.8 [facility] Comment on above: Performed By: #### C BC ####[facility] Vmcdibpcex88[address] [place] [phone]. Airam Tripathi Monocytes/100 WBC (Bld) 8.5 % Normal 1.7-12.0 [facility] Comment on above: Performed By: #### C BC ####[facility] Swfjmssaqr10[address] [place] [phone]. Airam Tripathi NEUT # 5.8 103/ul Normal 1.4-6.5 [facility] Comment on above: Performed By: #### C BC ####[facility] Quygsrvhhc25[address] [place] [phone]. Airam Tripathi Neutrophils/100 WBC (Bld) 67.6 % Normal 43.0-75.0 [facility] Comment on above: Performed By: #### C BC ####[facility] Goiavbsveq37[address] [place] [phone]. Airam Tripathi Platelet mean volume (Bld) [Entitic vol] 9.5 fL Normal 9.5-13.5 [facility] Comment on above: Performed By: #### C BC ####[facility] Ttzplnwqdf0253 [place] [phone]. Airam Tripathi PLT 292 103/ul Normal 150-450 [facility] Comment on above: Performed By: #### C BC ####[facility] Rncmafvwtu0314 [place] [phone]. Airam Tripathi RBC 3.28 106/ul Critically low 4.20-5.40 [facility] Comment on above: Performed By: #### C BC ####[facility] Lzirvfmnyj4[address] [place] [phone]. Airam Tripathi WBC 8.6 103/ul Normal 4.0-11.0 [facility] Comment on above: Performed By: #### C BC ####[facility] Jyggvgrtnu[address] [place], [place] [address]Dr. Airam Tripathi PROF 14(COMP METB)on 023 Albumin [Mass/Vol] 3.0 g/dL Critically low 3.4-5.0 [facility] Comment on above: Performed By: #### C MP ####[facility] Teousezdih42[address] [place], [place] [address]Dr. Airam Tripathi Albumin/Globulin [Mass ratio] 0.9 {ratio} Normal [facility] Comment on above: Performed By: #### C MP ####[facility] Fyngjmutfd22[address] [place], [place] [address]Dr. Airam Tripathi ALP [Catalytic activity/Vol] 184 U/L Critically high 46-116 [facility] Comment on above: Performed By: #### C MP ####[facility] Etfkxmhjhi64[address] [place], [place] [address]Dr. Airam Tripathi ALT [Catalytic activity/Vol] 18 U/L Normal 14-59 [facility] Comment on above: Performed By: #### C MP ####[facility] Uxtiilqfdy[address] [place], [place] [address]Dr. Airam Tripathi Anion gap [Moles/Vol] 11.2 mmol/L Normal [facility] Comment on above: Performed By: #### C MP ####[facility] Nbfadggbpu724[address] [place], [place] [address]Dr. Airam Tripathi AST [Catalytic activity/Vol] 19 U/L Normal 15-37 [facility] Comment on above: Performed By: #### C MP ####[facility] Zzpbzfmmhn[address] [place], [place] [address]Dr. Airam Tripathi Bilirubin [Mass/Vol] 0.3 mg/dL Normal 0.2-1.0 [facility] Comment on above: Performed By: #### C MP ####[facility] Fzbeadewxu[address] [place], [place] [address]Dr. Airam Tripathi Calcium [Mass/Vol] 8.8 mg/dL Normal 8.5-10.1 [facility] Comment on above: Performed By: #### C MP ####[facility] Aqxzhxacqo40[address] [place] [phone]. Airam Tripathi Chloride [Moles/Vol] 101 mmol/L Normal 98-107 [facility] Comment on above: Performed By: #### C MP ####[facility] Bvomhugvhy[address] [place] [address]Dr. Airam Tripathi CO2 [Moles/Vol] 25.4 mmol/L Normal 21.0-32.0 [facility] Comment on above: Performed By: #### C MP ####[facility] Zzereyhopq[address] [place] [address]Dr. Airam Deuce Creatinine [Mass/Vol] 1.05 mg/dL Critically high 0.55-1.02 [facility] Comment on above: Performed By: #### C MP ####[facility] Flcaojbrjg[address] [place] [address]Dr. Airam Deuce EGFR-AF VENEZUELAN >60 Normal >=60 [facility] Comment on above: Performed By: #### C MP ####[facility] Ltkfulzpkt7[address] [place] [address]Dr. Airam Deuce EGFR-NON AF VENEZUELAN 53 mL/min/1.73m2 Critically low >=60 [facility] Comment on above: Performed By: #### C MP ####[facility] Tivmagtmyy[address] [place] [address]Dr. Airam Deuce Globulin (S) [Mass/Vol] 3.4 g/dL Normal [facility] Comment on above: Performed By: #### C MP ####[facility] Qorjxzzqyn4746 [place] [address]Dr. Airam Deuce Glucose [Mass/Vol] 78 mg/dL Normal 74-106 [facility] Comment on above: Performed By: #### C MP ####[facility] Vcongifnkl[address] [place], [place] [address]Dr. Airam Deuce Potassium [Moles/Vol] 4.6 mmol/L Normal 3.5-5.1 [facility] Comment on above: Performed By: #### C MP ####[facility] Hyahsfxezi92[address] [place], [place] [address]Dr. Airam Deuce Protein [Mass/Vol] 6.4 g/dL Normal 6.4-8.2 [facility] Comment on above: Performed By: #### C MP ####[facility] Nbqdxzwltm[address] [place], [place] [address]Dr. Airam Tripathi Sodium [Moles/Vol] 133 mmol/L Critically low 136-145 Th [facility] Comment on above: Performed By: #### C MP ####[facility] Dxgiaenyar[address] [place], [place] [address]Dr. Airam Deuce Urea nitrogen [Mass/Vol] 26.0 mg/dL Critically high 7.0-18.0 [facility] Comment on above: Performed By: #### C MP ####[facility] Rohjpyezya046[address] [place], [place] [address]Dr. Selenaneil Tripathi Urea nitrogen/Creatinine [Mass ratio] 24.8 mg/mg Normal [facility] Comment on above: Performed By: #### C MP ####[facility] Lihhtevmzv[address] [place], [place] [address]Dr. Airam Deuce OSMOLALITYon 07-29-2022 Osmolality [Osmolality] 287 mosm/kg Normal 275-295 [facility] Comment on above: Performed By: #### O SMO ####[facility] Pubapjjcst[address] [place], [place] [address]Dr. Airam Deuce CBC AUTO DIFFon 07-27-2022 BASO # 0.0 103/ul Normal 0.0-0.1 [facility] Comment on above: Performed By: #### C BC ####[facility] Eqxoqmokkr05[address] [place], [place] [address]Dr. Selenaneil Tripathi Basophils/100 WBC (Bld) 0.4 % Normal 0.2-2.0 [facility] Comment on above: Performed By: #### C BC ####[facility] Ihjrcdykmy[address] [place], [place] [address]Dr. Airam Tripathi EO # 0.2 103/ul Normal 0.0-0.7 [facility] Comment on above: Performed By: #### C BC ####[facility] Iqhqwexnbo7[address] [place] [address]Dr. Airam Tripathi Eosinophils/100 WBC (Bld) 2.6 % Normal 0.9-7.0 [facility] Comment on above: Performed By: #### C BC ####[facility] Hkzsarfuug[address] [place], [place] [address]Dr. Airam Tripathi Erythrocyte distribution width (RBC) [Ratio] 14.2 % Normal 11.0-15.0 [facility] Comment on above: Performed By: #### C BC ####[facility] Kcyzlaprpd[address] [place], [place] [address]Dr. Airam Tripathi Hematocrit (Bld) [Volume fraction] 31.3 % Critically low 36.0-48.0 [facility] Comment on above: Performed By: #### C BC ####[facility] Esaaraftre8[address] [place], [place] [address]Dr. Airam Tripathi Hemoglobin (Bld) [Mass/Vol] 9.3 g/dL Critically low 12.0-16.0 [facility] Comment on above: Performed By: #### C BC ####[facility] Xjovavzqch3[address] [place], [place] [address]Dr. Airam Tripathi IG # 0.05 10e3/ul Critically high 0.00-0.03 [facility] Comment on above: Performed By: #### C BC ####[facility] Zjvhhbomwi[address] [place], [place] [address]Dr. Airam Tripathi IG % 0.7 % Critically high 0.0-0.5 [facility] Comment on above: Performed By: #### C BC ####[facility] Awpkenljvl647[address] [place], [place] [address]Dr. Airam Tripathi LYMPH # 1.0 103/ul Critically low 1.2-3.8 [facility] Comment on above: Performed By: #### C BC ####[facility] Dvjehhauxq52[address] [place], [place] [address]Dr. Airam Tripathi Lymphocytes/100 WBC (Bld) 13.4 % Critically low 20.5-60.0 [facility] Comment on above: Performed By: #### C BC ####[facility] [address]albqypizh[address] [place] [id number]. Airam Tripathi MANUAL DIFF REQ NO Normal [facility] Comment on above: Performed By: #### C BC ####[facility] Qicupggdrm0403 [place] [phone]. Airam Tripathi MCH (RBC) [Entitic mass] 28.8 pg Normal 26.7-34.0 [facility] Comment on above: Performed By: #### C BC ####[facility] Hlxwngojjc32[address] [place] [address]Dr. Airam Tripathi MCHC (RBC) [Mass/Vol] 29.7 g/dL Critically low 29.9-35.2 [facility] Comment on above: Performed By: #### C BC ####[facility] Uthuikkvbu[address] [place] [address]Dr. Selenaneil Tripathi MCV (RBC) [Entitic vol] 96.9 fL Normal 81.0-99.0 [facility] Comment on above: Performed By: #### C BC ####[facility] Toxtfvougy9[address] [place] [address]Dr. Airam Deuce MONO # 0.5 103/ul Normal 0.3-0.8 [facility] Comment on above: Performed By: #### C BC ####[facility] Pyhopiyjhd[address] [place], [place] [address]Dr. Airam Tripathi Monocytes/100 WBC (Bld) 6.3 % Normal 1.7-12.0 [facility] Comment on above: Performed By: #### C BC ####[facility] Fbdybnpmso5[address] [place] [address]Dr. Selenaneil Tripathi NEUT # 5.8 103/ul Normal 1.4-6.5 [facility] Comment on above: Performed By: #### C BC ####[facility] Wfmhmnibzo88[address] [place] [address]Dr. Airam Tripathi Neutrophils/100 WBC (Bld) 76.6 % Critically high 43.0-75.0 [facility] Comment on above: Performed By: #### C BC ####[facility] Yfhdiggfey7[address] [place] [phone]. Airam Deuce Platelet mean volume (Bld) [Entitic vol] 10.3 fL Normal 9.5-13.5 [facility] Comment on above: Performed By: #### C BC ####[facility] Axrfrxrvvb7508 [place] [id number]. Selenaneil Deuce PLT 265 103/ul Normal 150-450 [facility] Comment on above: Performed By: #### C BC ####[facility] Igsqmqwtws3322 [place] [phone]. Airam Tripathi RBC 3.23 106/ul Critically low 4.20-5.40 [facility] Comment on above: Performed By: #### C BC ####[facility] Pgpfdoqfgt00[address] [place] [address]Dr. Airam Tripathi WBC 7.6 103/ul Normal 4.0-11.0 [facility] Comment on above: Performed By: #### C BC ####[facility] Vighcsmaqi4236 [place] [address]Dr. Airam Tripathi PROF 14(COMP METB)on 023 Albumin [Mass/Vol] 2.9 g/dL Critically low 3.4-5.0 [facility] Comment on above: Performed By: #### C MP ####[facility] Ggsvgrpfiy82[address] [place] [address]Dr. Airam Tripathi Albumin/Globulin [Mass ratio] 0.8 {ratio} Normal [facility] Comment on above: Performed By: #### C MP ####[facility] Cseteujvxh3399 [place] [phone]. Airam Tripathi ALP [Catalytic activity/Vol] 175 U/L Critically high 46-116 [facility] Comment on above: Performed By: #### C MP ####[facility] Lztzpyxwbb69[address] [place] [address]Dr. Airam Tripathi ALT [Catalytic activity/Vol] 24 U/L Normal 14-59 [facility] Comment on above: Performed By: #### C MP ####[facility] Xtxpqzjwlw0882 [place] [phone]. Airam Tripathi Anion gap [Moles/Vol] 14.3 mmol/L Normal Th e [facility] Comment on above: Performed By: #### C MP ####[facility] Wjdyumwske65[address] [place] [address]Dr. Airam Tripathi AST [Catalytic activity/Vol] 25 U/L Normal 15-37 [facility] Comment on above: Performed By: #### C MP ####[facility] Yrekeuhwti6[address] [place] [address]Dr. Airam Tripathi Bilirubin [Mass/Vol] 0.2 mg/dL Normal 0.2-1.0 [facility] Comment on above: Performed By: #### C MP ####[facility] [address]jalzewhj[address] [place], [place] [address]Dr. Airam Tripathi Calcium [Mass/Vol] 8.6 mg/dL Normal 8.5-10.1 [facility] Comment on above: Performed By: #### C MP ####[facility] Ejqiqmecso[address] [place], [place] [address]Dr. Airam Tripathi Chloride [Moles/Vol] 102 mmol/L Normal 98-107 [facility] Comment on above: Performed By: #### C MP ####[facility] Vkgmtotago46[address] [place], [place] [address]Dr. Airam Tripathi CO2 [Moles/Vol] 23.7 mmol/L Normal 21.0-32.0 [facility] Comment on above: Performed By: #### C MP ####[facility] [address]zsuzvnse[address] [place], [place] [address]Dr. Airam Deuce Creatinine [Mass/Vol] 1.29 mg/dL Critically high 0.55-1.02 [facility] Comment on above: Performed By: #### C MP ####[facility] Wpjffzvdro[address] [place], [place] [address]Dr. Airam Deuce EGFR-AF VENEZUELAN 51 mL/min/1.73m2 Critically low >=60 [facility] Comment on above: Performed By: #### C MP ####[facility] Mcevdiloun62[address] [place] [id number]. Airam Tripathi EGFR-NON AF VENEZUELAN 42 mL/min/1.73m2 Critically low >=60 [facility] Comment on above: Performed By: #### C MP ####[facility] Haksojgdhl1318 [place] [phone]. Airam Tripathi Globulin (S) [Mass/Vol] 3.6 g/dL Normal [facility] Comment on above: Performed By: #### C MP ####[facility] Wffcdzlpjd8363 [place] [phone]. Airam Tripathi Glucose [Mass/Vol] 84 mg/dL Normal 74-106 [facility] Comment on above: Performed By: #### C MP ####[facility] Hdjyzmbzto2566 [place] [address]Dr. Airam Tripathi Potassium [Moles/Vol] 5.0 mmol/L Normal 3.5-5.1 [facility] Comment on above: Performed By: #### C MP ####[facility] Kfuebszrul6063 [place] [phone]. Airam Tripathi Protein [Mass/Vol] 6.5 g/dL Normal 6.4-8.2 [facility] Comment on above: Performed By: #### C MP ####[facility] Knnabybvvf7[address] [place] [address]Dr. Airam Tripathi Sodium [Moles/Vol] 135 mmol/L Critically low 136-145 [facility] Comment on above: Performed By: #### C MP ####[facility] Zvkjgrlemm6380 [place] [address]Dr. Airam Tripathi Urea nitrogen [Mass/Vol] 28.0 mg/dL Critically high 7.0-18.0 [facility] Comment on above: Performed By: #### C MP ####[facility] Doefcswlub35[address] [place] [address]Dr. Airam Tripathi Urea nitrogen/Creatinine [Mass ratio] 21.7 mg/mg Normal [facility] Comment on above: Performed By: #### C MP ####[facility] Etrndbwzdd[address] [place], [place] [address]Dr. Selenaneil Deuce XR LSPINE MIN 4 VIEWSon 02-0 XR LSPINE MIN 4 VIEWS Normal [facility] OSMOLALITYon 07-24-2022 Osmolality [Osmolality] 279 mosm/kg Normal 275-295 [facility] Comment on above: Performed By: #### O SMO ####[facility] Gmrepxkvbq[address] [place], [place] [address]Dr. Airam Tripathi CBC AUTO DIFFon 07-21-2022 BASO # 0.0 103/ul Normal 0.0-0.1 [facility] Comment on above: Performed By: #### C BC ####[facility] Vnxxcwkolp[address] [place], [place] [address]Dr. Airam Tripathi Basophils/100 WBC (Bld) 0.4 % Normal 0.2-2.0 [facility] Comment on above: Performed By: #### C BC ####[facility] Wmcuwdtnlg01[address] [place], [place] [address]Dr. Airam Tripathi EO # 0.2 103/ul Normal 0.0-0.7 [facility] Comment on above: Performed By: #### C BC ####[facility] Ummgyjfxlr8[address] [place], [place] [address]Dr. Airam Tripathi Eosinophils/100 WBC (Bld) 2.3 % Normal 0.9-7.0 [facility] Comment on above: Performed By: #### C BC ####[facility] Urfjdaoodg[address] [place], [place] [address]Dr. Airam Tripathi Erythrocyte distribution width (RBC) [Ratio] 13.6 % Normal 11.0-15.0 [facility] Comment on above: Performed By: #### C BC ####[facility] Fvtwhdyjdf726[address] [place], [place] [address]Dr. Airam Tripathi Hematocrit (Bld) [Volume fraction] 32.6 % Critically low 36.0-48.0 [facility] Comment on above: Performed By: #### C BC ####[facility] Krbzkgabcz[address] [place], [place] [address]Dr. Airam Tripathi Hemoglobin (Bld) [Mass/Vol] 9.5 g/dL Critically low 12.0-16.0 [facility] Comment on above: Performed By: #### C BC ####[facility] Rebidshhkb40[address] [place] [address]Dr. Airam Tripathi IG # 0.03 10e3/ul Normal 0.00-0.03 [facility] Comment on above: Performed By: #### C BC ####[facility] Bhbbxllpch4027 [place] [address]DrKianna Tripathi IG % 0.4 % Normal 0.0-0.5 [facility] Comment on above: Performed By: #### C BC ####[facility] Sayrsbfdlq[address] [place], [place] [address]DrKianna Tripathi LYMPH # 1.4 103/ul Normal 1.2-3.8 [facility] Comment on above: Performed By: #### C BC ####[facility] Rrmsercgxq4[address] [place], [place] [address]DrKianna Tripathi Lymphocytes/100 WBC (Bld) 18.2 % Critically low 20.5-60.0 [facility] Comment on above: Performed By: #### C BC ####[facility] [address]qkwtctwj[address] [place], [place] [address]DrKianna Tripathi MANUAL DIFF REQ NO Normal [facility] Comment on above: Performed By: #### C BC ####[facility] [address] [place] [address]DrKianna Tripathi MCH (RBC) [Entitic mass] 29.5 pg Normal 26.7-34.0 [facility] Comment on above: Performed By: #### C BC ####[facility] [address] [place] [address]DrKianna Tripathi MCHC (RBC) [Mass/Vol] 29.1 g/dL Critically low 29.9-35.2 [facility] Comment on above: Performed By: #### C BC ####[facility] Gionllcyiz[address] [place] [address]DrKianna Tripathi MCV (RBC) [Entitic vol] 101.2 fL Critically high 81.0-99.0 [facility] Comment on above: Performed By: #### C BC ####[facility] F[address]ozrmiri[address] [place] [address]DrKianna Tripathi MONO # 0.6 103/ul Normal 0.3-0.8 [facility] Comment on above: Performed By: #### C BC ####[facility] Zpkgeoywrn260[address] [place] [address]DrKianna Tripathi Monocytes/100 WBC (Bld) 7.9 % Normal 1.7-12.0 [facility] Comment on above: Performed By: #### C BC ####[facility] Lkfpczxl[address] [place], [place] [address]DrKianna Tripathi NEUT # 5.5 103/ul Normal 1.4-6.5 [facility] Comment on above: Performed By: #### C BC ####[facility] Qrxgevpeth64[address] [place], [place] [address]DrKianna Tripathi Neutrophils/100 WBC (Bld) 70.8 % Normal 43.0-75.0 [facility] Comment on above: Performed By: #### C BC ####[facility] Hckegusw[address] [place], [place] [address]DrKianna Tripathi Platelet mean volume (Bld) [Entitic vol] 9.6 fL Normal 9.5-13.5 [facility] Comment on above: Performed By: #### C BC ####[facility] Uyahkqgkhw[address] [place], [place] [address]Dr. Airam Tripathi PLT 265 103/ul Normal 150-450 [facility] Comment on above: Performed By: #### C BC ####[facility] [address] [place], [place] [id number] Tripathi RBC 3.22 106/ul Critically low 4.20-5.40 [facility] Comment on above: Performed By: #### C BC ####[facility] [address] [place] [id number] Tripathi WBC 7.8 103/ul Normal 4.0-11.0 [facility] Comment on above: Performed By: #### C BC ####[facility] Mgcephiwjw[address] [place] [address]DrKianna Tripathi PROF 14(COMP METB)on 023 Albumin [Mass/Vol] 2.9 g/dL Critically low 3.4-5.0 [facility] Comment on above: Performed By: #### C MP ####[facility] [address]yzqzuceg[address] [place] [address]DrKianna Tripathi Albumin/Globulin [Mass ratio] 0.9 {ratio} Normal [facility] Comment on above: Performed By: #### C MP ####[facility] Npgmapadlw4[address] [place] [address]DrKinana Tripathi ALP [Catalytic activity/Vol] 176 U/L Critically high 46-116 [facility] Comment on above: Performed By: #### C MP ####[facility] Gzixqnrsxe64[address] [place], [place] [address]DrKianna Tripathi ALT [Catalytic activity/Vol] 19 U/L Normal 14-59 [facility] Comment on above: Performed By: #### C MP ####[facility] Jodyykfwlg[address] [place] [address]DrKianna Tripathi Anion gap [Moles/Vol] 12.6 mmol/L Normal [facility] Comment on above: Performed By: #### C MP ####[facility] Xjnhnghjcv[address] [place] [address]DrKianna Tripathi AST [Catalytic activity/Vol] 25 U/L Normal 15-37 [facility] Comment on above: Performed By: #### C MP ####[facility] Xqlmlitnjv7[address] [place] [address]DrKianna Tripathi Bilirubin [Mass/Vol] 0.2 mg/dL Normal 0.2-1.0 [facility] Comment on above: Performed By: #### C MP ####[facility] Xtrhogfypq[address] [place] [address]DrKianna Tripathi Calcium [Mass/Vol] 8.5 mg/dL Normal 8.5-10.1 [facility] Comment on above: Performed By: #### C MP ####[facility] Xgpqbniljm76[address] [place] [address]Dr. Airam Tripathi Chloride [Moles/Vol] 101 mmol/L Normal 98-107 [facility] Comment on above: Performed By: #### C MP ####[facility] Tcjncvzdfk6[address] [place] [address]Dr. Airam Tripathi CO2 [Moles/Vol] 25.9 mmol/L Normal 21.0-32.0 [facility] Comment on above: Performed By: #### C MP ####[facility] Aprtgzckyy7[address] [place] [address]Dr. Airam Tripathi Creatinine [Mass/Vol] 1.11 mg/dL Critically high 0.55-1.02 [facility] Comment on above: Performed By: #### C MP ####[facility] Yvmstjvqki[address] [place], [place] [address]Dr. Airam Tripathi EGFR-AF VENEZUELAN >60 Normal >=60 [facility] Comment on above: Performed By: #### C MP ####[facility] Fiwypxlupv[address] [place], [place] [address]Dr. Airam Tripathi EGFR-NON AF VENEZUELAN 50 mL/min/1.73m2 Critically low >=60 [facility] Comment on above: Performed By: #### C MP ####[facility] Ujahagvulc[address] [place], [place] [address]Dr. Airam Tripathi Globulin (S) [Mass/Vol] 3.2 g/dL Normal [facility] Comment on above: Performed By: #### C MP ####[facility] Idenqefkuf[address] [place] [address]Dr. Airam Tripathi Glucose [Mass/Vol] 80 mg/dL Normal 74-106 [facility] Comment on above: Performed By: #### C MP ####[facility] Fcodxfohau06[address] [place] [address]Dr. Airam Tripathi Potassium [Moles/Vol] 3.5 mmol/L Normal 3.5-5.1 [facility] Comment on above: Performed By: #### C MP ####[facility] Olowhlpxyo[address] [place] [id number]. Airam Tripathi Protein [Mass/Vol] 6.1 g/dL Critically low 6.4-8.2 Th e [facility] Comment on above: Performed By: #### C MP ####[facility] Tccxypmmba6[address] [place] [id number]. Airam Deuce Sodium [Moles/Vol] 136 mmol/L Normal 136-145 [facility] Comment on above: Performed By: #### C MP ####[facility] Eswiwhcyxm[address] [place], [place] [address]Dr. Airam Deuce Urea nitrogen [Mass/Vol] 31.0 mg/dL Critically high 7.0-18.0 [facility] Comment on above: Performed By: #### C MP ####[facility] Lbjmgliswy6[address] [place], [place] [address]Dr. Airam Tripathi Urea nitrogen/Creatinine [Mass ratio] 27.9 mg/mg Normal [facility] Comment on above: Performed By: #### C MP ####[facility] Dscylhxllx25[address] [place], [place] [address]Dr. Airam Deuce OSMOLALITYon 07-19-2022 Osmolality [Osmolality] 285 mosm/kg Normal 275-295 [facility] Comment on above: Performed By: #### O SMO ####[facility] Qzmantphpj624[address] [place], [place] [address]Dr. Airam Deuce CBC AUTO DIFFon 07-15-2022 BASO # 0.0 103/ul Normal 0.0-0.1 [facility] Comment on above: Performed By: #### C BC ####[facility] Vdqzyzzlbf8[address] [place], [place] [id number]. Selenaneil Tripathi Basophils/100 WBC (Bld) 0.2 % Normal 0.2-2.0 [facility] Comment on above: Performed By: #### C BC ####[facility] Iszcfbxfgh[address]14[address] [place], [place] [address]Dr. Airam Tripathi EO # 0.1 103/ul Normal 0.0-0.7 [facility] Comment on above: Performed By: #### C BC ####[facility] X[address]sagfaf[address] [place] [address]Dr. Airam Tripathi Eosinophils/100 WBC (Bld) 1.4 % Normal 0.9-7.0 [facility] Comment on above: Performed By: #### C BC ####[facility] Bdgcmhwxbn4356[address] [place], [place] [address]Dr. Airam Tripathi Erythrocyte distribution width (RBC) [Ratio] 13.0 % Normal 11.0-15.0 [facility] Comment on above: Performed By: #### C BC ####[facility] Syrdepfcud22[address] [place], [place] [address]Dr. Airam Tripathi Hematocrit (Bld) [Volume fraction] 29.3 % Critically low 36.0-48.0 [facility] Comment on above: Performed By: #### C BC ####[facility] Klvuihetva8[address] [place], [place] [address]Dr. Airam Tripathi Hemoglobin (Bld) [Mass/Vol] 10.3 g/dL Critically low 12.0-16.0 [facility] Comment on above: Performed By: #### C BC ####[facility] Ljjrvkshqe[address] [place], [place] [address]DrKianna Airam Tripathi IG # 0.05 10e3/ul Critically high 0.00-0.03 [facility] Comment on above: Performed By: #### C BC ####[facility] Afamxgktlh30[address] [place], [place] [address]Dr. Airam Tripathi IG % 0.6 % Critically high 0.0-0.5 [facility] Comment on above: Performed By: #### C BC ####[facility] Vndnnkdkgp64[address] [place], [place] [address]DrKianna Airam Deuce LYMPH # 0.9 103/ul Critically low 1.2-3.8 [facility] Comment on above: Performed By: #### C BC ####[facility] Goidjdkguy1840[address] [place], [place] [address]Dr. Airam Deuce Lymphocytes/100 WBC (Bld) 10.6 % Critically low 20.5-60.0 [facility] Comment on above: Performed By: #### C BC ####[facility] [address]ysruyzug[address] [place] [address]DrKianna Tripathi MANUAL DIFF REQ NO Normal [facility] Comment on above: Performed By: #### C BC ####[facility] Iiifoqcvfc63[address] [place] [address]Dr. Airam Tripathi MCH (RBC) [Entitic mass] 29.3 pg Normal 26.7-34.0 [facility] Comment on above: Performed By: #### C BC ####[facility] Nesuwjkqhv[address] [place], [place] [address]DrKianna Tripathi MCHC (RBC) [Mass/Vol] 35.2 g/dL Normal 29.9-35.2 [facility] Comment on above: Performed By: #### C BC ####[facility] Yiqwkhsyqv7[address] [place], [place] [address]DrKianna Tripathi MCV (RBC) [Entitic vol] 83.5 fL Normal 81.0-99.0 [facility] Comment on above: Performed By: #### C BC ####[facility] Hyzimljzhm[address] [place], [place] [address]DrKianna Tripathi MONO # 0.5 103/ul Normal 0.3-0.8 [facility] Comment on above: Performed By: #### C BC ####[facility] Ohwunyavnf6039[address] [place], [place] [address]DrKianna Tripathi Monocytes/100 WBC (Bld) 5.1 % Normal 1.7-12.0 [facility] Comment on above: Performed By: #### C BC ####[facility] Eehawpthjr[address] [place], [place] [address]DrKianna Tripathi NEUT # 7.3 103/ul Critically high 1.4-6.5 [facility] Comment on above: Performed By: #### C BC ####[facility] Wfwdhjftws192[address] [place], [place] [address]DrKianna Tripathi Neutrophils/100 WBC (Bld) 82.1 % Critically high 43.0-75.0 [facility] Comment on above: Performed By: #### C BC ####[facility] Oiixupbrfe[address] [place] [address]Dr. Airam Tripathi Platelet mean volume (Bld) [Entitic vol] 8.9 fL Critically low 9.5-13.5 [facility] Comment on above: Performed By: #### C BC ####[facility] Rdjocixmnx23[address] [place] [address]Dr. Airam Tripathi PLT 290 103/ul Normal 150-450 [facility] Comment on above: Performed By: #### C BC ####[facility] Dfnqfxgkoy9[address] [place], [place] [address]DrKianna Tripathi RBC 3.51 106/ul Critically low 4.20-5.40 [facility] Comment on above: Performed By: #### C BC ####[facility] Lpjnvftalz35[address] [place], [place] [address]Dr. Airam Tripathi WBC 8.9 103/ul Normal 4.0-11.0 [facility] Comment on above: Performed By: #### C BC ####[facility] Cwlynqjlgv[address] [place], [place] [address]Dr. Airam Tripathi PROF 14(COMP METB)on 023 Albumin [Mass/Vol] 3.2 g/dL Critically low 3.4-5.0 [facility] Comment on above: Performed By: #### C MP ####[facility] Rkrdfuxgmb6097[address] [place], [place] [address]Dr. Airam Tripathi Albumin/Globulin [Mass ratio] 0.9 {ratio} Normal [facility] Comment on above: Performed By: #### C MP ####[facility] Nhqciiiceq1006[address] [place], [place] [address]Dr. Airam Tripathi ALP [Catalytic activity/Vol] 194 U/L Critically high 46-116 [facility] Comment on above: Performed By: #### C MP ####[facility] Qjnuduejcr54[address] [place], [place] [address]Dr. Airam Tripathi ALT [Catalytic activity/Vol] 19 U/L Normal 14-59 [facility] Comment on above: Performed By: #### C MP ####[facility] B[address]xfjssmt84[address] [place] [address]Dr. Airam Tripathi Anion gap [Moles/Vol] 11.3 mmol/L Normal Th [facility] Comment on above: Performed By: #### C MP ####[facility] Eyiwrarnea56[address] [place] [address]Dr. Airam Deuce AST [Catalytic activity/Vol] 24 U/L Normal 15-37 [facility] Comment on above: Performed By: #### C MP ####[facility] Zzhroevsab[address] [place], [place] [address]Dr. Airam Deuce Bilirubin [Mass/Vol] 0.2 mg/dL Normal 0.2-1.0 [facility] Comment on above: Performed By: #### C MP ####[facility] Vnhoowkeoy6[address] [place], [place] [address]Dr. Airam Deuce Calcium [Mass/Vol] 8.7 mg/dL Normal 8.5-10.1 [facility] Comment on above: Performed By: #### C MP ####[facility] Jogifczmjv4000[address] [place], [place] [address]Dr. Airam Deuce Chloride [Moles/Vol] 101 mmol/L Normal 98-107 [facility] Comment on above: Performed By: #### C MP ####[facility] Rmbrtsrycr7656[address] [place], [place] [address]Dr. Airam Deuce CO2 [Moles/Vol] 27.2 mmol/L Normal 21.0-32.0 [facility] Comment on above: Performed By: #### C MP ####[facility] Pxahvsjrvt9523[address] [place], [place] [address]Dr. Airam Deuce Creatinine [Mass/Vol] 1.17 mg/dL Critically high 0.55-1.02 [facility] Comment on above: Performed By: #### C MP ####[facility] Bmjomvjdan04[address] [place], [place] [address]Dr. Airam Deuce EGFR-AF VENEZUELAN 57 mL/min/1.73m2 Critically low >=60 [facility] Comment on above: Performed By: #### C MP ####[facility] [address]bfcjewl[address] [place] [address]Dr. Airam Tripathi EGFR-NON AF VENEZUELAN 47 mL/min/1.73m2 Critically low >=60 [facility] Comment on above: Performed By: #### C MP ####[facility] Qucbondmik34[address] [place] [address]Dr. Airam Deuce Globulin (S) [Mass/Vol] 3.5 g/dL Normal [facility] Comment on above: Performed By: #### C MP ####[facility] Twsvlzdniw2[address] [place] [address]Dr. Airam Deuec Glucose [Mass/Vol] 86 mg/dL Normal 74-106 [facility] Comment on above: Performed By: #### C MP ####[facility] Vqvcatgcdh[address] [place], [place] [address]Dr. Airam Deuce Potassium [Moles/Vol] 5.5 mmol/L Critically high 3.5-5.1 [facility] Comment on above: Performed By: #### C MP ####[facility] Foqotpzcod0[address] [place], [place] [address]Dr. Airam Deuce Protein [Mass/Vol] 6.7 g/dL Normal 6.4-8.2 [facility] Comment on above: Performed By: #### C MP ####[facility] Qsaihcqewz617[address] [place], [place] [address]Dr. Selenaneil Deuce Sodium [Moles/Vol] 134 mmol/L Critically low 136-145 Th [facility] Comment on above: Performed By: #### C MP ####[facility] Etlugmjvhz7[address] [place], [place] [address]Dr. Selenaneil Deuce Urea nitrogen [Mass/Vol] 26.0 mg/dL Critically high 7.0-18.0 [facility] Comment on above: Performed By: #### C MP ####[facility] Trgnbrpbul6732[address] [place], [place] [address]Dr. Airam Tripathi Urea nitrogen/Creatinine [Mass ratio] 22.2 mg/mg Normal [facility] Comment on above: Performed By: #### C MP ####[facility] Lpdxlksqdg84[address] [place], [place] [address]DrKianna Tripathi OSMOLALITYon 07-08-2022 Osmolality [Osmolality] 273 mosm/kg Critically low 275-295 [facility] Comment on above: Performed By: #### O SMO ####[facility] Cyrspwbuzy380[address] [place], [place] [address]DrKianna Tripathi CBC AUTO DIFFon 07-07-2022 BASO # 0.0 103/ul Normal 0.0-0.1 [facility] Comment on above: Performed By: #### C BC ####[facility] Hmuenrtxrg299[address] [place], [place] [address]DrKianna Tripathi Basophils/100 WBC (Bld) 0.4 % Normal 0.2-2.0 [facility] Comment on above: Performed By: #### C BC ####[facility] Dvhagthlew0679[address] [place], [place] [address]DrKianna Tripathi EO # 0.1 103/ul Normal 0.0-0.7 [facility] Comment on above: Performed By: #### C BC ####[facility] Dblfhavjkq5849[address] [place], [place] [address]DrKianna Tripathi Eosinophils/100 WBC (Bld) 1.6 % Normal 0.9-7.0 [facility] Comment on above: Performed By: #### C BC ####[facility] Yapgacugvx9744[address] [place], [place] [address]DrKianna Tripathi Erythrocyte distribution width (RBC) [Ratio] 13.1 % Normal 11.0-15.0 [facility] Comment on above: Performed By: #### C BC ####[facility] Vimuknemuf2135[address] [place], [place] [address]DrKianna Tripathi Hematocrit (Bld) [Volume fraction] 33.7 % Critically low 36.0-48.0 [facility] Comment on above: Performed By: #### C BC ####[facility] Pdiszwvzes385[address] [place], [place] [address]DrKianna Tripathi Hemoglobin (Bld) [Mass/Vol] 9.9 g/dL Critically low 12.0-16.0 [facility] Comment on above: Performed By: #### C BC ####[facility] Ohydheatef[address] [place] [address]DrKianna Tripathi IG # 0.05 10e3/ul Critically high 0.00-0.03 [facility] Comment on above: Performed By: #### C BC ####[facility] Vhsbsrjqtm229[address] [place], [place] [address]DrKianna Tripathi IG % 0.6 % Critically high 0.0-0.5 [facility] Comment on above: Performed By: #### C BC ####[facility] Zcwubltmkk1723[address] [place], [place] [address]DrKianna Tripathi LYMPH # 1.2 103/ul Normal 1.2-3.8 [facility] Comment on above: Performed By: #### C BC ####[facility] Zlmnjldgtv3234[address] [place], [place] [address]DrKianna Tripathi Lymphocytes/100 WBC (Bld) 15.5 % Critically low 20.5-60.0 [facility] Comment on above: Performed By: #### C BC ####[facility] Llztwcnzvv3386[address] [place], [place] [address]DrKianna Tripathi MANUAL DIFF REQ NO Normal [facility] Comment on above: Performed By: #### C BC ####[facility] Ydfkmcckpb2747[address] [place], [place] [address]DrKianna Tripathi MCH (RBC) [Entitic mass] 28.7 pg Normal 26.7-34.0 [facility] Comment on above: Performed By: #### C BC ####[facility] Gctiwxmyhl497[address] [place], [place] [address]DrKianna Tripathi MCHC (RBC) [Mass/Vol] 29.4 g/dL Critically low 29.9-35.2 [facility] Comment on above: Performed By: #### C BC ####[facility] Bytffxwpwi6204[address] [place], [place] [address]DrKianna Tripathi MCV (RBC) [Entitic vol] 97.7 fL Normal 81.0-99.0 [facility] Comment on above: Performed By: #### C BC ####[facility] Nznymwebwn8[address] [place], [place] [address]DrKianna Tripathi MONO # 0.6 103/ul Normal 0.3-0.8 [facility] Comment on above: Performed By: #### C BC ####[facility] Brkcavjzbu858[address] [place], [place] [address]DrKianna Airam Tripathi Monocytes/100 WBC (Bld) 7.7 % Normal 1.7-12.0 [facility] Comment on above: Performed By: #### C BC ####[facility] Phmzqqlmww9[address] [place], [place] [address]DrKianna Airam Tripathi NEUT # 5.9 103/ul Normal 1.4-6.5 [facility] Comment on above: Performed By: #### C BC ####[facility] Wjuweapywm3966[address] [place], [place] [address]DrKianna Airam Tripathi Neutrophils/100 WBC (Bld) 74.2 % Normal 43.0-75.0 [facility] Comment on above: Performed By: #### C BC ####[facility] Jokwulxtcn34[address] [place], [place] [address]DrKianna Airam Tripathi Platelet mean volume (Bld) [Entitic vol] 9.4 fL Critically low 9.5-13.5 [facility] Comment on above: Performed By: #### C BC ####[facility] Ctpmelytzj[address] [place], [place] [address]DrKianna Airam Tripathi PLT 331 103/ul Normal 150-450 [facility] Comment on above: Performed By: #### C BC ####[facility] Hmvioqxfrd7408[address] [place], [place] [address]DrKianna Airam Deuce RBC 3.45 106/ul Critically low 4.20-5.40 [facility] Comment on above: Performed By: #### C BC ####[facility] Hkpmjnmuzl644[address] [place], [place] [address]Dr. Airam Tripathi WBC 7.9 103/ul Normal 4.0-11.0 [facility] Comment on above: Performed By: #### C BC ####[facility] Cqjzufrych04[address] [place], [place] [address]Dr. Airam Tripathi PROF 14(COMP METB)on 023 Albumin [Mass/Vol] 3.4 g/dL Normal 3.4-5.0 [facility] Comment on above: Performed By: #### C MP ####[facility] Qzifyzpzfi3[address] [place], [place] [address]Dr. Airam Tripathi Albumin/Globulin [Mass ratio] 1.1 {ratio} Normal [facility] Comment on above: Performed By: #### C MP ####[facility] Vnnblcxcdz0720[address] [place], [place] [address]Dr. Airam Tripathi ALP [Catalytic activity/Vol] 197 U/L Critically high 46-116 [facility] Comment on above: Performed By: #### C MP ####[facility] Sdsnsgzwif106[address] [place], [place] [address]Dr. Airam Tripathi ALT [Catalytic activity/Vol] 18 U/L Normal 14-59 [facility] Comment on above: Performed By: #### C MP ####[facility] Ykjzxyzlfi8764[address] [place], [place] [address]Dr. Airam Tripathi Anion gap [Moles/Vol] 12.3 mmol/L Normal [facility] Comment on above: Performed By: #### C MP ####[facility] Awhhbnqxdu[address] [place], [place] [address]Dr. Airam Tripathi AST [Catalytic activity/Vol] 26 U/L Normal 15-37 [facility] Comment on above: Performed By: #### C MP ####[facility] Ewvclegxbx696233 [address] [place], [place] [address]Dr. Airam Tripathi Bilirubin [Mass/Vol] 0.3 mg/dL Normal 0.2-1.0 [facility] Comment on above: Performed By: #### C MP ####[facility] Rrkaibgkee[address] [place], [place] [address]Dr. Airam Tripathi Calcium [Mass/Vol] 8.6 mg/dL Normal 8.5-10.1 [facility] Comment on above: Performed By: #### C MP ####[facility] [address]zrtdtubq[address] [place] [address]Dr. Airam Tripathi Chloride [Moles/Vol] 96 mmol/L Critically low 98-107 [facility] Comment on above: Performed By: #### C MP ####[facility] Szdsqyxwum[address] [place], [place] [address]Dr. Airam Tripathi CO2 [Moles/Vol] 27.8 mmol/L Normal 21.0-32.0 [facility] Comment on above: Performed By: #### C MP ####[facility] Ueekmssqen[address] [place], [place] [address]Dr. Airam Tripathi Creatinine [Mass/Vol] 1.55 mg/dL Critically high 0.55-1.02 [facility] Comment on above: Performed By: #### C MP ####[facility] Pcstmcusjn[address] [place], [place] [address]Dr. Airam Tripathi EGFR-AF VENEZUELAN 41 mL/min/1.73m2 Critically low >=60 [facility] Comment on above: Performed By: #### C MP ####[facility] Kqkgviunjk13[address] [place], [place] [address]Dr. Airam Tripathi EGFR-NON AF VENEZUELAN 34 mL/min/1.73m2 Critically low >=60 [facility] Comment on above: Performed By: #### C MP ####[facility] Wrxtcavrik8[address] [place], [place] [address]Dr. Airam Tripathi Globulin (S) [Mass/Vol] 3.2 g/dL Normal [facility] Comment on above: Performed By: #### C MP ####[facility] Ncomsswpdj6732[address] [place], [place] [address]Dr. Airam Tripathi Glucose [Mass/Vol] 87 mg/dL Normal 74-106 [facility] Comment on above: Performed By: #### C MP ####[facility] Jtwlsycebf027[address] [place], [place] [address]Dr. Airam Tripathi Potassium [Moles/Vol] 5.1 mmol/L Normal 3.5-5.1 [facility] Comment on above: Performed By: #### C MP ####[facility] Rjsybqumnn[address] [place], [place] [address]DrKianna Tripathi Protein [Mass/Vol] 6.6 g/dL Normal 6.4-8.2 [facility] Comment on above: Performed By: #### C MP ####[facility] Yuphkehkxc[address] [place], [place] [address]DrKianna Tripathi Sodium [Moles/Vol] 131 mmol/L Critically low 136-145 [facility] Comment on above: Performed By: #### C MP ####[facility] Xwomwzbzxb7[address] [place], [place] [address]DrKianna Tripathi Urea nitrogen [Mass/Vol] 31.0 mg/dL Critically high 7.0-18.0 [facility] Comment on above: Performed By: #### C MP ####[facility] Czhhzvxkyb13[address] [place], [place] [address]DrKianna Tripathi Urea nitrogen/Creatinine [Mass ratio] 20.0 mg/mg Normal [facility] Comment on above: Performed By: #### C MP ####[facility] Xdafwvqoge83[address] [place], [place] [address]DrKianna Tripathi OSMOLALITYon 07-02-2022 Osmolality [Osmolality] 281 mosm/kg Normal 275-295 [facility] Comment on above: Performed By: #### O SMO ####[facility] Ltkjqxzvwz1074[address] [place], [place] [address]DrKianna Tripathi CBC AUTO DIFFon 06-29-2022 BASO # 0.0 103/ul Normal 0.0-0.1 [facility] Comment on above: Performed By: #### C BC ####[facility] Qobfdwwmzp8723[address] [place], [place] [address]DrKianna Tripathi Basophils/100 WBC (Bld) 0.3 % Normal 0.2-2.0 [facility] Comment on above: Performed By: #### C BC ####[facility] Jvfuxuiwms[address]15[address] [place], [place] [address]Dr. Airam Tripathi EO # 0.2 103/ul Normal 0.0-0.7 [facility] Comment on above: Performed By: #### C BC ####[facility] T[address]alkxaj[address] [place] [address]Dr. Airam Tripathi Eosinophils/100 WBC (Bld) 2.3 % Normal 0.9-7.0 [facility] Comment on above: Performed By: #### C BC ####[facility] Muoaqjrvly48[address] [place] [address]Dr. Airam Tripathi Erythrocyte distribution width (RBC) [Ratio] 13.2 % Normal 11.0-15.0 [facility] Comment on above: Performed By: #### C BC ####[facility] Gfjrocyudg735[address] [place], [place] [address]Dr. Airam Tripathi Hematocrit (Bld) [Volume fraction] 28.2 % Critically low 36.0-48.0 [facility] Comment on above: Performed By: #### C BC ####[facility] Jmzzwurxjf[address] [place], [place] [address]Dr. Airam Tripathi Hemoglobin (Bld) [Mass/Vol] 9.1 g/dL Critically low 12.0-16.0 [facility] Comment on above: Performed By: #### C BC ####[facility] Dgtoioezvf14[address] [place], [place] [address]Dr. Airam Tripathi IG # 0.03 10e3/ul Normal 0.00-0.03 [facility] Comment on above: Performed By: #### C BC ####[facility] Ciwmeqlmsa4048[address] [place], [place] [address]Dr. Airam Tripathi IG % 0.4 % Normal 0.0-0.5 [facility] Comment on above: Performed By: #### C BC ####[facility] Ixfurgzcvx1098[address] [place], [place] [address]Dr. Airam Tripathi LYMPH # 1.0 103/ul Critically low 1.2-3.8 [facility] Comment on above: Performed By: #### C BC ####[facility] Qzgpppndts12[address] [place], [place] [address]Dr. Airam Tripathi Lymphocytes/100 WBC (Bld) 12.8 % Critically low 20.5-60.0 [facility] Comment on above: Performed By: #### C BC ####[facility] [address]klsh[address]kq[address] [place] [address]DrKianna Tripathi MANUAL DIFF REQ NO Normal [facility] Comment on above: Performed By: #### C BC ####[facility] Sdjoskxyxl57[address] [place] [address]Dr. Airam Tripathi MCH (RBC) [Entitic mass] 29.9 pg Normal 26.7-34.0 [facility] Comment on above: Performed By: #### C BC ####[facility] Cbbvnrcxyx8[address] [place] [address]Dr. Airam Tripathi MCHC (RBC) [Mass/Vol] 32.3 g/dL Normal 29.9-35.2 [facility] Comment on above: Performed By: #### C BC ####[facility] Odozdlbkpt[address] [place] [address]Dr. Airam Tripathi MCV (RBC) [Entitic vol] 92.8 fL Normal 81.0-99.0 [facility] Comment on above: Performed By: #### C BC ####[facility] Gjenegppdi[address] [place] [address]Dr. Airam Tripathi MONO # 0.5 103/ul Normal 0.3-0.8 [facility] Comment on above: Performed By: #### C BC ####[facility] Yxylajktam45[address] [place] [address]Dr. Airam Tripathi Monocytes/100 WBC (Bld) 6.0 % Normal 1.7-12.0 [facility] Comment on above: Performed By: #### C BC ####[facility] Razfikmmdd34[address] [place] [address]DrKianna Tripathi NEUT # 6.0 103/ul Normal 1.4-6.5 [facility] Comment on above: Performed By: #### C BC ####[facility] Yxnrlzhlcc[address] [place], [place] [address]Dr. Airam Deuce Neutrophils/100 WBC (Bld) 78.2 % Critically high 43.0-75.0 [facility] Comment on above: Performed By: #### C BC ####[facility] Ultxznvoyp[address] [place] [address]Dr. Airam Tripathi Platelet mean volume (Bld) [Entitic vol] 9.0 fL Critically low 9.5-13.5 [facility] Comment on above: Performed By: #### C BC ####[facility] [address]afou[address] [place] [address]Dr. Airam Tripathi PLT 332 103/ul Normal 150-450 [facility] Comment on above: Performed By: #### C BC ####[facility] Mdvmtafqep8[address] [place] [address]Dr. Selenaneil Deuce RBC 3.04 106/ul Critically low 4.20-5.40 [facility] Comment on above: Performed By: #### C BC ####[facility] Ydaefjmeqa64[address] [place], [place] [address]Dr. Selenaneil Deuce WBC 7.7 103/ul Normal 4.0-11.0 [facility] Comment on above: Performed By: #### C BC ####[facility] C[address]dbgfudw[address] [place] [address]Dr. Airam Tripathi PROF 14(COMP METB)on 023 Albumin [Mass/Vol] 3.2 g/dL Critically low 3.4-5.0 [facility] Comment on above: Performed By: #### C MP ####[facility] Nmrfiofbbs25[address] [place] [address]Dr. Airam Tripathi Albumin/Globulin [Mass ratio] 0.9 {ratio} Normal [facility] Comment on above: Performed By: #### C MP ####[facility] R[address]qdsudvpw[address] [place] [address]Dr. Selenaneil Deuce ALP [Catalytic activity/Vol] 135 U/L Critically high 46-116 [facility] Comment on above: Performed By: #### C MP ####[facility] Gbypsziriy[address] [place] [address]Dr. Airam Deuce ALT [Catalytic activity/Vol] 25 U/L Normal 14-59 [facility] Comment on above: Performed By: #### C MP ####[facility] Lhncyihvsl[address] [place] [address]Dr. Airam Tripathi Anion gap [Moles/Vol] 9.1 mmol/L Normal [facility] Comment on above: Performed By: #### C MP ####[facility] Pfbepgivnq257[address] [place], [place] [address]Dr. Airam Deuce AST [Catalytic activity/Vol] 34 U/L Normal 15-37 [facility] Comment on above: Performed By: #### C MP ####[facility] Uaxaqbehgi5098[address] [place], [place] [address]Dr. Airam Deuce Bilirubin [Mass/Vol] 0.3 mg/dL Normal 0.2-1.0 [facility] Comment on above: Performed By: #### C MP ####[facility] Hlqiyeromp20[address] [place], [place] [address]Dr. Airam Deuce Calcium [Mass/Vol] 8.6 mg/dL Normal 8.5-10.1 [facility] Comment on above: Performed By: #### C MP ####[facility] Zujzjphtrq[address] [place], [place] [address]Dr. Airam Deuce Chloride [Moles/Vol] 99 mmol/L Normal 98-107 [facility] Comment on above: Performed By: #### C MP ####[facility] Jxzhzhphqp8268[address] [place], [place] [address]Dr. Airam Deuce CO2 [Moles/Vol] 29.1 mmol/L Normal 21.0-32.0 [facility] Comment on above: Performed By: #### C MP ####[facility] Tfdruvygrb[address] [place], [place] [address]Dr. Airam Deuce Creatinine [Mass/Vol] 1.40 mg/dL Critically high 0.55-1.02 [facility] Comment on above: Performed By: #### C MP ####[facility] Jdqbzohvcw23[address] [place], [place] [address]Dr. Airam Tripathi EGFR-AF VENEZUELAN 46 mL/min/1.73m2 Critically low >=60 [facility] Comment on above: Performed By: #### C MP ####[facility] Fijwzmzuar[address] [place] [address]Dr. Airam Deuce EGFR-NON AF VENEZUELAN 38 mL/min/1.73m2 Critically low >=60 [facility] Comment on above: Performed By: #### C MP ####[facility] Blveehsskq[address] [place] [address]Dr. Airam Deuce Globulin (S) [Mass/Vol] 3.4 g/dL Normal [facility] Comment on above: Performed By: #### C MP ####[facility] Jyumjtdeij6[address] [place], [place] [address]Dr. Selenaneil Deuce Glucose [Mass/Vol] 83 mg/dL Normal 74-106 [facility] Comment on above: Performed By: #### C MP ####[facility] Spurrcscur[address] [place] [address]Dr. Selenaneil Deuce Potassium [Moles/Vol] 4.2 mmol/L Normal 3.5-5.1 [facility] Comment on above: Performed By: #### C MP ####[facility] Kuojqerynr47[address] [place] [address]Dr. Airam Tripathi Protein [Mass/Vol] 6.6 g/dL Normal 6.4-8.2 [facility] Comment on above: Performed By: #### C MP ####[facility] Ufrkgujkyd9384 [place] [address]Dr. Airam Deuce Sodium [Moles/Vol] 133 mmol/L Critically low 136-145 [facility] Comment on above: Performed By: #### C MP ####[facility] Turkfdbniy4116 [place] [address]Dr. Airam Tripathi Urea nitrogen [Mass/Vol] 37.0 mg/dL Critically high 7.0-18.0 [facility] Comment on above: Performed By: #### C MP ####[facility] Dtjplysnka[address] [place], [place] [address]Dr. Airam Tripathi Urea nitrogen/Creatinine [Mass ratio] 26.4 mg/mg Normal [facility] Comment on above: Performed By: #### C MP ####[facility] Ddjxnghsir0447[address] [place], [place] [address]Dr. Airam Tripathi BNPon 06-18-2022 Natriuretic peptide B (Bld) [Mass/Vol] 5826.0 pg/mL Critically high <=900.0 [facility] Comment on above: Performed By: #### B UNION [employer], CMP ####[facility] Jzwgeapmiw[address] [place], [place] [address]Dr. Airam Tripathi CBC AUTO DIFFon 06-18-2022 BASO # 0.0 103/ul Normal 0.0-0.1 [facility] Comment on above: Performed By: #### C BC ####[facility] Fljrckxegs8284[address] [place], [place] [address]Dr. Airam Tripathi Basophils/100 WBC (Bld) 0.4 % Normal 0.2-2.0 [facility] Comment on above: Performed By: #### C BC ####[facility] Yhtfrmhieu7[address] [place], [place] [address]Dr. Airam Tripathi EO # 0.1 103/ul Normal 0.0-0.7 [facility] Comment on above: Performed By: #### C BC ####[facility] Sfjqprvzvd[address] [place], [place] [address]Dr. Airam Tripathi Eosinophils/100 WBC (Bld) 1.3 % Normal 0.9-7.0 [facility] Comment on above: Performed By: #### C BC ####[facility] Fvubwlvnfj[address] [place], [place] [address]Dr. Airam Tripathi Erythrocyte distribution width (RBC) [Ratio] 13.4 % Normal 11.0-15.0 [facility] Comment on above: Performed By: #### C BC ####[facility] Eyzoavzmbb9154[address] [place], [place] [address]Dr. Airam Tripathi Hematocrit (Bld) [Volume fraction] 27.3 % Critically low 36.0-48.0 [facility] Comment on above: Performed By: #### C BC ####[facility] Cgzobxwnng6034 [place] [id number]. Airam Tripathi Hemoglobin (Bld) [Mass/Vol] 8.6 g/dL Critically low 12.0-16.0 [facility] Comment on above: Performed By: #### C BC ####[facility] [address]jwhszcmz[address] [place] [address]Dr. Airam Tripathi IG # 0.08 10e3/ul Critically high 0.00-0.03 [facility] Comment on above: Performed By: #### C BC ####[facility] Pysohpdbgr3167 [place] [address]Dr. Airam Tripathi IG % 0.8 % Critically high 0.0-0.5 [facility] Comment on above: Performed By: #### C BC ####[facility] Bwagphzscn212[address] [place], [place] [address]Dr. Airam Tripathi LYMPH # 1.9 103/ul Normal 1.2-3.8 [facility] Comment on above: Performed By: #### C BC ####[facility] Quvhlxejoi5440 [place] [address]Dr. Airam Tripathi Lymphocytes/100 WBC (Bld) 19.3 % Critically low 20.5-60.0 [facility] Comment on above: Performed By: #### C BC ####[facility] Gwsbmsbjpz5464[address] [place], [place] [address]Dr. Airam Tripathi MANUAL DIFF REQ NO Normal [facility] Comment on above: Performed By: #### C BC ####[facility] Flcubznksi[address] [place], [place] [id number]. Airam Tripathi MCH (RBC) [Entitic mass] 29.6 pg Normal 26.7-34.0 [facility] Comment on above: Performed By: #### C BC ####[facility] Vukfwkrkdv28[address] [place], [place] [address]Dr. Airam Tripathi MCHC (RBC) [Mass/Vol] 31.5 g/dL Normal 29.9-35.2 [facility] Comment on above: Performed By: #### C BC ####[facility] Ssjdztdqjm7226 [place] [id number]. Airam Tripathi MCV (RBC) [Entitic vol] 93.8 fL Normal 81.0-99.0 [facility] Comment on above: Performed By: #### C BC ####[facility] Ralidxczjs1675 [place] [id number]. Airam Tripathi MONO # 0.6 103/ul Normal 0.3-0.8 [facility] Comment on above: Performed By: #### C BC ####[facility] Dygsnfkuln1044[address] [place], [place] [address]Dr. Airam Tripathi Monocytes/100 WBC (Bld) 6.5 % Normal 1.7-12.0 [facility] Comment on above: Performed By: #### C BC ####[facility] Psxqiptbkr0780[address] [place], [place] [address]Dr. Airam Tripathi NEUT # 6.9 103/ul Critically high 1.4-6.5 [facility] Comment on above: Performed By: #### C BC ####[facility] Rqyoxwtzxf727[address] [place], [place] [address]Dr. Airam Tripathi Neutrophils/100 WBC (Bld) 71.7 % Normal 43.0-75.0 [facility] Comment on above: Performed By: #### C BC ####[facility] Ecilhpaclk646[address] [place], [place] [address]Dr. Airam Tripathi Platelet mean volume (Bld) [Entitic vol] 8.5 fL Critically low 9.5-13.5 [facility] Comment on above: Performed By: #### C BC ####[facility] Xtgayxmnem[address] [place], [place] [id number]. Airam Tripathi PLT 295 103/ul Normal 150-450 [facility] Comment on above: Performed By: #### C BC ####[facility] Znulcdfwax8407[address] [place], [place] [address]Dr. Airam Tripathi RBC 2.91 106/ul Critically low 4.20-5.40 [facility] Comment on above: Performed By: #### C BC ####[facility] Vogqfmhjwv1363 [place] [id number]. Airam Tripathi WBC 9.7 103/ul Normal 4.0-11.0 [facility] Comment on above: Performed By: #### C BC ####[facility] Qohcwahgug[address]54 [place] [address]Dr. Airam Tripathi PROF 14(COMP METB)on 06-18- 022 Albumin [Mass/Vol] 2.8 g/dL Critically low 3.4-5.0 [facility] Comment on above: Performed By: #### B [employer], CMP ####[facility] Aangnhpisk[address] [place] [address]Dr. Airam Tripathi Albumin/Globulin [Mass ratio] 0.9 {ratio} Normal [facility] Comment on above: Performed By: #### B UNION [employer], CMP ####[facility] Zvhvojkdgp9387[address] [place], [place] [address]Dr. Airam Tripathi ALP [Catalytic activity/Vol] 125 U/L Critically high 46-116 [facility] Comment on above: Performed By: #### B UNION [employer], CMP ####[facility] Pqfryqxhay6774 [place] [address]Dr. Airam Tripathi ALT [Catalytic activity/Vol] 16 U/L Normal 14-59 [facility] Comment on above: Performed By: #### B UNION [employer]PENTER, CMP ####[facility] Uwiclzuhho7[address] [place] [address]Dr. Airam Tripathi Anion gap [Moles/Vol] 11.4 mmol/L Normal [facility] Comment on above: Performed By: #### B UNION [employer]PENTER, CMP ####[facility] Lcydxcrafz2562 [place] [address]Dr. Airam Tripathi AST [Catalytic activity/Vol] 23 U/L Normal 15-37 [facility] Comment on above: Performed By: #### B UNION [employer], CMP ####[facility] Vejeykgwxt8118 [place] [address]Dr. Airam Tripathi Bilirubin [Mass/Vol] 0.2 mg/dL Normal 0.2-1.0 [facility] Comment on above: Performed By: #### B UNION [employer], CMP ####[facility] Nzsefoibls5057 [place] [address]Dr. Airam Tripathi Calcium [Mass/Vol] 8.1 mg/dL Critically low 8.5-10.1 [facility] Comment on above: Performed By: #### B UNION [employer], CMP ####[facility] Libdajtauh46[address] [place], [place] [address]Dr. Airam Tripathi Chloride [Moles/Vol] 96 mmol/L Critically low 98-107 [facility] Comment on above: Performed By: #### B UNION [employer], CMP ####[facility] Vikostvjmr0149[address] [place], [place] [address]Dr. Airam Tripathi CO2 [Moles/Vol] 26.6 mmol/L Normal 21.0-32.0 [facility] Comment on above: Performed By: #### B UNION [employer]PENTER, CMP ####[facility] Qoluxqusmf565[address] [place], [place] [address]Dr. Airam Deuce Creatinine [Mass/Vol] 1.31 mg/dL Critically high 0.55-1.02 [facility] Comment on above: Performed By: #### B UNION [employer], CMP ####[facility] Yzsynsrnno7347[address] [place], [place] [address]Dr. Airam Tripathi EGFR-AF VENEZUELAN 50 mL/min/1.73m2 Critically low >=60 [facility] Comment on above: Performed By: #### B UNION [employer], CMP ####[facility] Wkowsteols2856[address] [place], [place] [address]Dr. Airam Deuce EGFR-NON AF VENEZUELAN 41 mL/min/1.73m2 Critically low >=60 [facility] Comment on above: Performed By: #### B UNION [employer], CMP ####[facility] Xwojvbtuya750[address] [place], [place] [address]Dr. Airam Tripathi Globulin (S) [Mass/Vol] 3.0 g/dL Normal [facility] Comment on above: Performed By: #### B UNION [employer], CMP ####[facility] Gwfrztzusz1760[address] [place], [place] [address]Dr. Airam Tripathi Glucose [Mass/Vol] 82 mg/dL Normal 74-106 [facility] Comment on above: Performed By: #### B UNION [employer]PENTER, CMP ####[facility] Fqquaswkhi0327[address] [place], [place] [address]Dr. Airam Tripathi Potassium [Moles/Vol] 4.0 mmol/L Normal 3.5-5.1 [facility] Comment on above: Performed By: #### B UNION [employer]PENTER, CMP ####[facility] Tupxrefyoh1680[address] [place], [place] [address]Dr. Airam Tripathi Protein [Mass/Vol] 5.8 g/dL Critically low 6.4-8.2 [facility] Comment on above: Performed By: #### B UNION [employer]PENTER, CMP ####[facility] Zgnnsuyycx7408[address] [place], [place] [address]Dr. Selenaneil Tripathi Sodium [Moles/Vol] 130 mmol/L Critically low 136-145 [facility] Comment on above: Performed By: #### B UNION [employer], CMP ####[facility] Ayvenjllpa272[address] [place], [place] [address]Dr. Airam Tripathi Urea nitrogen [Mass/Vol] 19.0 mg/dL Critically high 7.0-18.0 [facility] Comment on above: Performed By: #### B UNION [employer]PENTER, CMP ####[facility] Uvmuzupyxj[address] [place], [place] [address]Dr. Selenaneil Tripathi Urea nitrogen/Creatinine [Mass ratio] 14.5 mg/mg Normal [facility] Comment on above: Performed By: #### B UNION [employer], CMP ####[facility] Nafyrjmouf[address] [place], [place] [address]Dr. Airam Deuce BNPon 06-17-2022 Natriuretic peptide B (Bld) [Mass/Vol] 2510.0 pg/mL Critically high <=900.0 [facility] Comment on above: Performed By: #### B [employer], CMP ####[facility] Ihfnhrvolf[address] [place], [place] [address]Dr. Selenaneil Tripathi CBC AUTO DIFFon 06-17-2022 BASO # 0.0 103/ul Normal 0.0-0.1 [facility] Comment on above: Performed By: #### C BC ####[facility] Evvcudvbue5762 [place] [id number]. Airam Tripathi Basophils/100 WBC (Bld) 0.4 % Normal 0.2-2.0 [facility] Comment on above: Performed By: #### C BC ####[facility] [address]ov[address]xq[address] [place], [place] [id number]. Airam Tripathi EO # 0.0 103/ul Normal 0.0-0.7 [facility] Comment on above: Performed By: #### C BC ####[facility] Eqxmqmjmlw[address] [place], [place] [address]Dr. Airam Tripathi Eosinophils/100 WBC (Bld) 0.3 % Critically low 0.9-7.0 [facility] Comment on above: Performed By: #### C BC ####[facility] Qvxjckbelc[address] [place], [place] [address]Dr. Airam Tripathi Erythrocyte distribution width (RBC) [Ratio] 13.6 % Normal 11.0-15.0 [facility] Comment on above: Performed By: #### C BC ####[facility] Dyzacbkzex[address] [place], [place] [address]Dr. Airam Tripathi Hematocrit (Bld) [Volume fraction] 28.9 % Critically low 36.0-48.0 [facility] Comment on above: Performed By: #### C BC ####[facility] Tpdiqhacjq[address] [place], [place] [address]Dr. Airam Tripathi Hemoglobin (Bld) [Mass/Vol] 8.9 g/dL Critically low 12.0-16.0 [facility] Comment on above: Performed By: #### C BC ####[facility] Jcvpbyhnlm[address] [place], [place] [address]Dr. Airam Tripathi IG # 0.10 10e3/ul Critically high 0.00-0.03 [facility] Comment on above: Performed By: #### C BC ####[facility] Bdpzstgyrk[address] [place], [place] [address]Dr. Airam Tripathi IG % 1.3 % Critically high 0.0-0.5 [facility] Comment on above: Performed By: #### C BC ####[facility] L[address]cohrpqg30[address] [place] [id number]. Airam Tripathi LYMPH # 0.7 103/ul Critically low 1.2-3.8 [facility] Comment on above: Performed By: #### C BC ####[facility] Gnpzzgewbj8726 [place] [id number]. Airam Tripathi Lymphocytes/100 WBC (Bld) 8.1 % Critically low 20.5-60.0 [facility] Comment on above: Performed By: #### C BC ####[facility] Emsfideufj33[address] [place], [place] [address]Dr. Airam Tripathi MANUAL DIFF REQ NO Normal [facility] Comment on above: Performed By: #### C BC ####[facility] [address]cznurso[address] [place] [address]Dr. Airam Tripathi MCH (RBC) [Entitic mass] 29.4 pg Normal 26.7-34.0 [facility] Comment on above: Performed By: #### C BC ####[facility] Jfxwvwhuyr[address] [place] [address]Dr. Selenaneil Tripathi MCHC (RBC) [Mass/Vol] 30.8 g/dL Normal 29.9-35.2 [facility] Comment on above: Performed By: #### C BC ####[facility] Sqsjwiubzn28[address] [place] [id number]. Airam Triapthi MCV (RBC) [Entitic vol] 95.4 fL Normal 81.0-99.0 [facility] Comment on above: Performed By: #### C BC ####[facility] Fowoslemvc2365 [place] [phone]. Airam Tripathi MONO # 0.3 103/ul Normal 0.3-0.8 [facility] Comment on above: Performed By: #### C BC ####[facility] Uktwfalzxw1843 [place] [phone]. Airam Tripathi Monocytes/100 WBC (Bld) 3.1 % Normal 1.7-12.0 [facility] Comment on above: Performed By: #### C BC ####[facility] Xuqvjntmsw8201 [place] [phone]. Airam Tripathi NEUT # 7.0 103/ul Critically high 1.4-6.5 [facility] Comment on above: Performed By: #### C BC ####[facility] Lfwlssugvr7505 [place] [phone] Tripathi Neutrophils/100 WBC (Bld) 86.8 % Critically high 43.0-75.0 [facility] Comment on above: Performed By: #### C BC ####[facility] Fmldlausng4465 [place] [phone]. Airam Tripathi Platelet mean volume (Bld) [Entitic vol] 8.3 fL Critically low 9.5-13.5 [facility] Comment on above: Performed By: #### C BC ####[facility] Mebeprhsxy[address] [place] [address]Dr. Airam Tripathi PLT 279 103/ul Normal 150-450 [facility] Comment on above: Performed By: #### C BC ####[facility] Lubjxuxbrd0879 [place] [phone]. Airam Tripathi RBC 3.03 106/ul Critically low 4.20-5.40 [facility] Comment on above: Performed By: #### C BC ####[facility] Pkhuyxqbkd7039 [place] [phone]. Airam Tripathi WBC 8.0 103/ul Normal 4.0-11.0 [facility] Comment on above: Performed By: #### C BC ####[facility] Mlchlgdwti4383 [place] [phone] Tripathi PROF 14(COMP METB)on 022 Albumin [Mass/Vol] 2.8 g/dL Critically low 3.4-5.0 [facility] Comment on above: Performed By: #### B UNION CARPENTER, CMP ####[facility] Vevnmixgee5597 [place] [phone] Tripathi Albumin/Globulin [Mass ratio] 0.9 {ratio} Normal [facility] Comment on above: Performed By: #### B UNION CARPENTER, CMP ####[facility] Htdbuyroln4[address] [place] [address]Dr. Airam Tripathi ALP [Catalytic activity/Vol] 136 U/L Critically high 46-116 [facility] Comment on above: Performed By: #### B UNION CARPENTER, CMP ####[facility] Hoakkgqhxo70[address] [place] [address]Dr. Airam Deuce ALT [Catalytic activity/Vol] 17 U/L Normal 14-59 [facility] Comment on above: Performed By: #### B UNION CARPENTER, CMP ####[facility] Wgqrmxsevf2187 [place] [address]Dr. Selenaneil Deuce Anion gap [Moles/Vol] 12.9 mmol/L Normal Th [facility] Comment on above: Performed By: #### B UNION CARPENTER, CMP ####[facility] Vtrwboheez[address] [place], [place] [address]Dr. Airam Deuce AST [Catalytic activity/Vol] 24 U/L Normal 15-37 [facility] Comment on above: Performed By: #### B UNION CARPENTER, CMP ####[facility] Xsbyfbgxdw027[address] [place], [place] [address]Dr. Airam Deuce Bilirubin [Mass/Vol] 0.2 mg/dL Normal 0.2-1.0 [facility] Comment on above: Performed By: #### B UNION CARPENTER, CMP ####[facility] Jsgqlmiccj[address] [place], [place] [address]Dr. Selenaneil Deuce Calcium [Mass/Vol] 8.7 mg/dL Normal 8.5-10.1 [facility] Comment on above: Performed By: #### B UNION CARPENTER, CMP ####[facility] Irjmphubcq5178 [place] [address]Dr. Airam Tripathi Chloride [Moles/Vol] 102 mmol/L Normal 98-107 [facility] Comment on above: Performed By: #### B UNION CARPENTER, CMP ####[facility] Opufuhylbj[address] [place], [place] [address]Dr. Airam Tripathi CO2 [Moles/Vol] 23.8 mmol/L Normal 21.0-32.0 [facility] Comment on above: Performed By: #### B UNION CARPENTER, CMP ####[facility] Hnohkbyjtl40[address] [place] [address]Dr. Airam Tripathi Creatinine [Mass/Vol] 1.08 mg/dL Critically high 0.55-1.02 [facility] Comment on above: Performed By: #### B UNION CARPENTER, CMP ####[facility] Bhvbzgieyz9[address] [place], [place] [address]Dr. Airam Tripathi EGFR-AF VENEZUELAN >60 Normal >=60 [facility] Comment on above: Performed By: #### B UNION CARPENTER, CMP ####[facility] Nsxoreeier[address] [place], [place] [address]Dr. Airam Tripathi EGFR-NON AF VENEZUELAN 52 mL/min/1.73m2 Critically low >=60 [facility] Comment on above: Performed By: #### B UNION CARPENTER, CMP ####[facility] Hlfhwipchy[address] [place], [place] [address]Dr. Airam Tripathi Globulin (S) [Mass/Vol] 3.2 g/dL Normal [facility] Comment on above: Performed By: #### B UNION CARPENTER, CMP ####[facility] Wasmroozoo8584[address] [place], [place] [address]Dr. Airam Tripathi Glucose [Mass/Vol] 99 mg/dL Normal 74-106 [facility] Comment on above: Performed By: #### B UNION CARPENTER, CMP ####[facility] Ztxvnhpkkz85[address] [place], [place] [address]Dr. Airam Tripathi Potassium [Moles/Vol] 4.7 mmol/L Normal 3.5-5.1 [facility] Comment on above: Performed By: #### B UNION CARPENTER, CMP ####[facility] Tpfypwcfqf26[address] [place], [place] [address]Dr. Airam Tripathi Protein [Mass/Vol] 6.0 g/dL Critically low 6.4-8.2 Th e [facility] Comment on above: Performed By: #### B UNION CARPENTER, CMP ####[facility] Lvpnanobsv6915[address] [place], [place] [address]Dr. Airam Tripathi Sodium [Moles/Vol] 134 mmol/L Critically low 136-145 Th [facility] Comment on above: Performed By: #### B UNION CARPENTER, CMP ####[facility] Sckipftqul64[address] [place], [place] [address]DrKianna Airam Tripathi Urea nitrogen [Mass/Vol] 19.0 mg/dL Critically high 7.0-18.0 [facility] Comment on above: Performed By: #### B UNION CARPENTER, CMP ####[facility] Kqxhwgzoeq79[address] [place], [place] [address]DrKianna Airam Deuce Urea nitrogen/Creatinine [Mass ratio] 17.6 mg/mg Normal [facility] Comment on above: Performed By: #### B UNION CARPENTER, CMP ####[facility] Hwnlycnccj[address] [place], [place] [address]DrKianna Airam Deuce PROTIMEon 06-17-2022 INR Coag (PPP) [Relative time] 1.00 {INR} Normal [facility] Comment on above: Performed By: #### P T ####[facility] Ymnnnsezzs[address] [place], [place] [address]DrKianna Airam Tripathi INR GUIDELINES SEE BELOW Normal [facility] Comment on above: Result Comment: SIDRA RED INR: 2.0 - 3.0 CONDITIONS NOT LISTED BELOW 2.5 - 3.5 FOR PROSTHETIC HEART VALVE REPLACEMENT 2.5 - 3.5 RECURRENT THROMBOSIS Performed By: #### P T ####[facility] Siomoljomu[address] [place], [place] [address]DrKianna Tripathi PT Coag (PPP) [Time] 10.8 s Normal 9.0-11.6 [facility] Comment on above: Performed By: #### P T ####[facility] Wtqogumlys[address]57[address] [place], [place] [address]DrKianna Selenaneil Tripathi PTTon 06-17-2022 aPTT Coag (Bld) [Time] 27.2 s Normal 22.3-36.2 Th [facility] Comment on above: Performed By: #### P TT ####[facility] Auikxcuqbs8[address] [place], [place] [address]DrKianna Tripathi BNPon 06-16-2022 Natriuretic peptide B (Bld) [Mass/Vol] 2293.0 pg/mL Critically high <=900.0 [facility] Comment on above: Performed By: #### C MP, BNP ####[facility] Tnckoxhvvb74[address] [place] [address]Dr. Airam Tripathi CBC AUTO DIFFon 06-16-2022 BASO # 0.0 103/ul Normal 0.0-0.1 [facility] Comment on above: Performed By: #### C BC ####[facility] Ldsjwxamld9155[address] [place], [place] [address]Dr. Selenaneil Tripathi Basophils/100 WBC (Bld) 0.4 % Normal 0.2-2.0 [facility] Comment on above: Performed By: #### C BC ####[facility] Diuxvwrupj4939[address] [place], [place] [address]Dr. Selenaneil Tripathi EO # 0.2 103/ul Normal 0.0-0.7 [facility] Comment on above: Performed By: #### C BC ####[facility] Fentvtuzoc0[address] [place], [place] [address]Dr. Selenaneil Tripathi Eosinophils/100 WBC (Bld) 3.0 % Normal 0.9-7.0 [facility] Comment on above: Performed By: #### C BC ####[facility] Hmdltxxmuy7[address] [place], [place] [address]Dr. Airam Tripathi Erythrocyte distribution width (RBC) [Ratio] 13.3 % Normal 11.0-15.0 [facility] Comment on above: Performed By: #### C BC ####[facility] Rnvnbmilhu6760[address] [place], [place] [address]Dr. Selenaneil Tripathi Hematocrit (Bld) [Volume fraction] 26.2 % Critically low 36.0-48.0 [facility] Comment on above: Performed By: #### C BC ####[facility] Ahtclnowgr[address] [place], [place] [address]Dr. Airam Tripathi Hemoglobin (Bld) [Mass/Vol] 8.3 g/dL Critically low 12.0-16.0 [facility] Comment on above: Performed By: #### C BC ####[facility] Flpbjljhtd2875 [place] [id number]. Airam Tripathi IG # 0.08 10e3/ul Critically high 0.00-0.03 [facility] Comment on above: Performed By: #### C BC ####[facility] Edreztdcqm1914 [place] [phone]. Airam Tripathi IG % 1.1 % Critically high 0.0-0.5 [facility] Comment on above: Performed By: #### C BC ####[facility] Qpitumqhnq9435[address] [place], [place] [address]Dr. Airam Tripathi LYMPH # 1.2 103/ul Normal 1.2-3.8 [facility] Comment on above: Performed By: #### C BC ####[facility] Asioukyuhr65[address] [place], [place] [address]Dr. Selenaneil Tripathi Lymphocytes/100 WBC (Bld) 17.3 % Critically low 20.5-60.0 [facility] Comment on above: Performed By: #### C BC ####[facility] Xldavvzxat2325[address] [place], [place] [address]Dr. Airam Tripathi MANUAL DIFF REQ NO Normal [facility] Comment on above: Performed By: #### C BC ####[facility] Vwnyiurpff[address] [place], [place] [address]Dr. Airam Tripathi MCH (RBC) [Entitic mass] 30.3 pg Normal 26.7-34.0 [facility] Comment on above: Performed By: #### C BC ####[facility] Qplznbodnt6274[address] [place], [place] [address]Dr. Airam Tripathi MCHC (RBC) [Mass/Vol] 31.7 g/dL Normal 29.9-35.2 [facility] Comment on above: Performed By: #### C BC ####[facility] Ycfcnpbwhe43[address] [place] [address]Dr. Airam Tripathi MCV (RBC) [Entitic vol] 95.6 fL Normal 81.0-99.0 [facility] Comment on above: Performed By: #### C BC ####[facility] Getxbhukbb2891 [place] [id number]. Airam Tripathi MONO # 0.5 103/ul Normal 0.3-0.8 [facility] Comment on above: Performed By: #### C BC ####[facility] Nvzplqbfyh1582 [place] [phone]. Airam Tripathi Monocytes/100 WBC (Bld) 7.1 % Normal 1.7-12.0 [facility] Comment on above: Performed By: #### C BC ####[facility] Ssruogvlcp7718 [place] [phone]. Airam Tripathi NEUT # 5.0 103/ul Normal 1.4-6.5 [facility] Comment on above: Performed By: #### C BC ####[facility] Iaruvghcnz7227 [place] [phone]. Airam Tripathi Neutrophils/100 WBC (Bld) 71.1 % Normal 43.0-75.0 [facility] Comment on above: Performed By: #### C BC ####[facility] Hcuvespgfc9032 [place] [phone]. Airam Tripathi Platelet mean volume (Bld) [Entitic vol] 8.2 fL Critically low 9.5-13.5 [facility] Comment on above: Performed By: #### C BC ####[facility] Dmxcraarap2902 [place] [phone]. Airam Tripathi PLT 247 103/ul Normal 150-450 [facility] Comment on above: Performed By: #### C BC ####[facility] Lxzpetakeu[address] [place], [place] [address]Dr. Airam Tripathi RBC 2.74 106/ul Critically low 4.20-5.40 [facility] Comment on above: Performed By: #### C BC ####[facility] Zfqnmistuw7329 [place] [phone]. Airam Tripathi WBC 7.1 103/ul Normal 4.0-11.0 [facility] Comment on above: Performed By: #### C BC ####[facility] Jrxqovssye4438 [place] [address]Dr. Airam Tripathi CTA CHEST WO W CONon 022 CTA CHEST WO W CON Normal [facility] PROF 14(COMP METB)on 022 Albumin [Mass/Vol] 2.6 g/dL Critically low 3.4-5.0 [facility] Comment on above: Performed By: #### C MP, BNP ####[facility] Tshzlissky[address] [place] [address]Dr. Airam Tripathi Albumin/Globulin [Mass ratio] 0.8 {ratio} Normal [facility] Comment on above: Performed By: #### C MP, BNP ####[facility] Kmhuzaucmh34[address] [place] [address]Dr. Airam Tripathi ALP [Catalytic activity/Vol] 130 U/L Critically high 46-116 [facility] Comment on above: Performed By: #### C MP, BNP ####[facility] Xmzunjeuru2985[address] [place], [place] [address]Dr. Airam Tripathi ALT [Catalytic activity/Vol] 12 U/L Critically low 14-59 [facility] Comment on above: Performed By: #### C MP, BNP ####[facility] Bhcrcfeeqr904[address] [place], [place] [address]Dr. Airam Tripathi Anion gap [Moles/Vol] 11.8 mmol/L Normal [facility] Comment on above: Performed By: #### C MP, BNP ####[facility] Swhpbnmire8037[address] [place], [place] [address]Dr. Airam Tripathi AST [Catalytic activity/Vol] 22 U/L Normal 15-37 [facility] Comment on above: Performed By: #### C MP, BNP ####[facility] Vigdcuxakl[address] [place], [place] [address]Dr. Airam Tripathi Bilirubin [Mass/Vol] 0.2 mg/dL Normal 0.2-1.0 [facility] Comment on above: Performed By: #### C MP, BNP ####[facility] Jsgdxnmkpu7387[address] [place], [place] [address]Dr. Airam Tripathi Calcium [Mass/Vol] 8.0 mg/dL Critically low 8.5-10.1 Th e [facility] Comment on above: Performed By: #### C MP, BNP ####[facility] Vmwssbdtdf32[address] [place], [place] [address]Dr. Airam Tripathi Chloride [Moles/Vol] 104 mmol/L Normal 98-107 [facility] Comment on above: Performed By: #### C MP, BNP ####[facility] Zgsrkmgrwz[address] [place], [place] [address]Dr. Airam Tripathi CO2 [Moles/Vol] 22.8 mmol/L Normal 21.0-32.0 [facility] Comment on above: Performed By: #### C MP, BNP ####[facility] Ljlnqrvfwl99[address] [place], [place] [address]Dr. Airam Tripathi Creatinine [Mass/Vol] 1.07 mg/dL Critically high 0.55-1.02 [facility] Comment on above: Performed By: #### C MP, BNP ####[facility] Eujtigfnqz6186[address] [place], [place] [address]Dr. Airam Tripathi EGFR-AF VENEZUELAN >60 Normal >=60 [facility] Comment on above: Performed By: #### C MP, BNP ####[facility] Gbuutphttw[address] [place], [place] [address]Dr. Airam Tripathi EGFR-NON AF VENEZUELAN 52 mL/min/1.73m2 Critically low >=60 [facility] Comment on above: Performed By: #### C MP, BNP ####[facility] Jkibqydcxo5257[address] [place], [place] [address]Dr. Airam Tripathi Globulin (S) [Mass/Vol] 3.1 g/dL Normal [facility] Comment on above: Performed By: #### C MP, BNP ####[facility] Zhrrogwbrt0[address] [place], [place] [address]Dr. Airam Tripathi Glucose [Mass/Vol] 85 mg/dL Normal 74-106 [facility] Comment on above: Performed By: #### C MP, BNP ####[facility] Hyoskkfrfi148[address] [place], [place] [address]Dr. Airam Tripathi Potassium [Moles/Vol] 4.6 mmol/L Normal 3.5-5.1 [facility] Comment on above: Performed By: #### C MP, BNP ####[facility] Kpbiqpoqma264[address] [place], [place] [address]Dr. Airam Tripathi Protein [Mass/Vol] 5.7 g/dL Critically low 6.4-8.2 Th [facility] Comment on above: Performed By: #### C MP, BNP ####[facility] Xgaxleeqhv[address] [place], [place] [address]Dr. Airam Tripathi Sodium [Moles/Vol] 134 mmol/L Critically low 136-145 Th [facility] Comment on above: Performed By: #### C MP, BNP ####[facility] Ynryowcgfg[address] [place], [place] [address]Dr. Airam Tripathi Urea nitrogen [Mass/Vol] 24.0 mg/dL Critically high 7.0-18.0 [facility] Comment on above: Performed By: #### C MP, BNP ####[facility] Jgggdwrjgs6[address] [place], [place] [address]Dr. Airam Tripathi Urea nitrogen/Creatinine [Mass ratio] 22.4 mg/mg Normal [facility] Comment on above: Performed By: #### C MP, BNP ####[facility] Nuwucwtsmw6860[address] [place], [place] [address]Dr. Airam Tripathi BNPon 06-15-2022 Natriuretic peptide B (Bld) [Mass/Vol] 934.0 pg/mL Critically high <=900.0 [facility] Comment on above: Performed By: #### C MP, BNP ####[facility] Bbinilycdw9767[address] [place], [place] [address]Dr. Airam Tripathi CBC AUTO DIFFon 06-15-2022 BASO # 0.0 103/ul Normal 0.0-0.1 [facility] Comment on above: Performed By: #### C BC ####[facility] D[address]rqybhhp[address] [place], [place] [address]Dr. Airam Tripathi Basophils/100 WBC (Bld) 0.2 % Normal 0.2-2.0 [facility] Comment on above: Performed By: #### C BC ####[facility] Fiyjroagdz[address] [place] [address]Dr. Airam Tripathi EO # 0.1 103/ul Normal 0.0-0.7 [facility] Comment on above: Performed By: #### C BC ####[facility] Shqtqrtiyu024[address] [place], [place] [address]Dr. Airam Tripathi Eosinophils/100 WBC (Bld) 2.1 % Normal 0.9-7.0 [facility] Comment on above: Performed By: #### C BC ####[facility] Yxroztqoje36[address] [place], [place] [address]Dr. Selenaneil Tripathi Erythrocyte distribution width (RBC) [Ratio] 12.9 % Normal 11.0-15.0 [facility] Comment on above: Performed By: #### C BC ####[facility] Pindpepxux23[address] [place], [place] [address]Dr. Selenaneil Tripathi Hematocrit (Bld) [Volume fraction] 24.9 % Critically low 36.0-48.0 [facility] Comment on above: Performed By: #### C BC ####[facility] J[address]ikgjwmw[address] [place], [place] [address]Dr. Airam Tripathi Hemoglobin (Bld) [Mass/Vol] 7.9 g/dL Critically low 12.0-16.0 [facility] Comment on above: Performed By: #### C BC ####[facility] Qkscoixkfx7[address] [place], [place] [address]Dr. Airam Tripathi IG # 0.05 10e3/ul Critically high 0.00-0.03 [facility] Comment on above: Performed By: #### C BC ####[facility] [address]rjvumxhux[address] [place], [place] [address]Dr. Selenaneil Tripathi IG % 0.8 % Critically high 0.0-0.5 [facility] Comment on above: Performed By: #### C BC ####[facility] Rbzxhhdyjd[address] [place], [place] [address]DrKianna Tripathi LYMPH # 0.9 103/ul Critically low 1.2-3.8 [facility] Comment on above: Performed By: #### C BC ####[facility] F[address]olyzhqw[address] [place] [address]Dr. Selenaneil Tripathi Lymphocytes/100 WBC (Bld) 13.7 % Critically low 20.5-60.0 [facility] Comment on above: Performed By: #### C BC ####[facility] [address]jdagkudjl[address] [place] [address]DrKianna Tripathi MANUAL DIFF REQ NO Normal [facility] Comment on above: Performed By: #### C BC ####[facility] M[address]mmm[address] [place] [id number]. Airam Tripathi MCH (RBC) [Entitic mass] 30.2 pg Normal 26.7-34.0 [facility] Comment on above: Performed By: #### C BC ####[facility] Gkrstlpmqi[address] [place], [place] [address]Dr. Airam Tripathi MCHC (RBC) [Mass/Vol] 31.7 g/dL Normal 29.9-35.2 [facility] Comment on above: Performed By: #### C BC ####[facility] Omdnsktnfn[address] [place], [place] [address]DrKianna Tripathi MCV (RBC) [Entitic vol] 95.0 fL Normal 81.0-99.0 [facility] Comment on above: Performed By: #### C BC ####[facility] Plctafbdat[address] [place], [place] [address]DrKianna Tripathi MONO # 0.4 103/ul Normal 0.3-0.8 [facility] Comment on above: Performed By: #### C BC ####[facility] [address]votckaqzx[address] [place], [place] [id number] Tripathi Monocytes/100 WBC (Bld) 6.7 % Normal 1.7-12.0 [facility] Comment on above: Performed By: #### C BC ####[facility] Unljmremkt[address] [place], [place] [address]DrKianna Tripathi NEUT # 5.0 103/ul Normal 1.4-6.5 [facility] Comment on above: Performed By: #### C BC ####[facility] Dkslehopev[address] [place] [address]DrKianna Tripathi Neutrophils/100 WBC (Bld) 76.5 % Critically high 43.0-75.0 [facility] Comment on above: Performed By: #### C BC ####[facility] Puburakehj[address] [place] [address]DrKianna Tripathi Platelet mean volume (Bld) [Entitic vol] 8.4 fL Critically low 9.5-13.5 [facility] Comment on above: Performed By: #### C BC ####[facility] Ykntmw[address]za[address] [place] [address]DrKianna Tripathi PLT 202 103/ul Normal 150-450 [facility] Comment on above: Performed By: #### C BC ####[facility] Tkvriidjiu[address] [place], [place] [address]DrKianna Tripathi RBC 2.62 106/ul Critically low 4.20-5.40 [facility] Comment on above: Performed By: #### C BC ####[facility] Vuveittovn[address] [place], [place] [address]DrKianna Tripathi WBC 6.6 103/ul Normal 4.0-11.0 [facility] Comment on above: Performed By: #### C BC ####[facility] Tjqekeilwp[address] [place], [place] [address]DrKianna Tripathi OSMOLALITYon 06-15-2022 Osmolality [Osmolality] 269 mosm/kg Critically low 275-295 [facility] Comment on above: Performed By: #### O SMO ####[facility] Fmeqbnubqq[address] [place], [place] [address]DrKianna Tripathi PROF 14(COMP METB)on 022 Albumin [Mass/Vol] 2.5 g/dL Critically low 3.4-5.0 [facility] Comment on above: Performed By: #### C MP, BNP ####[facility] Xaqxypfqgq[address] [place], [place] [address]DrKianna Tripathi Albumin/Globulin [Mass ratio] 0.9 {ratio} Normal [facility] Comment on above: Performed By: #### C MP, BNP ####[facility] C[address]qisyguz[address] [place] [address]Dr. Airam Tripathi ALP [Catalytic activity/Vol] 128 U/L Critically high 46-116 [facility] Comment on above: Performed By: #### C MP, BNP ####[facility] [address]oz[address]ywkzz[address] [place] [address]Dr. Airam Tripathi ALT [Catalytic activity/Vol] 14 U/L Normal 14-59 [facility] Comment on above: Performed By: #### C MP, BNP ####[facility] Jugglrneon[address] [place], [place] [address]Dr. Airam Tripathi Anion gap [Moles/Vol] 10.4 mmol/L Normal Th [facility] Comment on above: Performed By: #### C MP, BNP ####[facility] Qxhdodtxry1324[address] [place], [place] [address]Dr. Airam Tripathi AST [Catalytic activity/Vol] 23 U/L Normal 15-37 [facility] Comment on above: Performed By: #### C MP, BNP ####[facility] Gfwoacyyeb118[address] [place], [place] [address]Dr. Airam Tripathi Bilirubin [Mass/Vol] 0.2 mg/dL Normal 0.2-1.0 [facility] Comment on above: Performed By: #### C MP, BNP ####[facility] Fyoylydgyg[address] [place], [place] [address]Dr. Airam Tripathi Calcium [Mass/Vol] 7.4 mg/dL Critically low 8.5-10.1 [facility] Comment on above: Performed By: #### C MP, BNP ####[facility] Axikqdjiry10[address] [place], [place] [address]Dr. Airam Tripathi Chloride [Moles/Vol] 99 mmol/L Normal 98-107 [facility] Comment on above: Performed By: #### C MP, BNP ####[facility] Idgrjrjoew[address] [place], [place] [address]Dr. Airam Tripathi CO2 [Moles/Vol] 24.1 mmol/L Normal 21.0-32.0 [facility] Comment on above: Performed By: #### C MP, BNP ####[facility] Ustsbppjxa2313[address] [place], [place] [address]Dr. Airam Tripathi Creatinine [Mass/Vol] 1.45 mg/dL Critically high 0.55-1.02 [facility] Comment on above: Performed By: #### C MP, BNP ####[facility] Ozbvtahfip6[address] [place], [place] [address]Dr. Airam Tripathi EGFR-AF VENEZUELAN 45 mL/min/1.73m2 Critically low >=60 [facility] Comment on above: Performed By: #### C MP, BNP ####[facility] Glfssiabod7255[address] [place], [place] [address]Dr. Airam Tripathi EGFR-NON AF VENEZUELAN 37 mL/min/1.73m2 Critically low >=60 [facility] Comment on above: Performed By: #### C MP, BNP ####[facility] Mmtuerjjoe9[address] [place], [place] [address]Dr. Airam Tripathi Globulin (S) [Mass/Vol] 2.8 g/dL Normal [facility] Comment on above: Performed By: #### C MP, BNP ####[facility] Mhlhfwvgbg[address] [place], [place] [address]Dr. Airam Tripathi Glucose [Mass/Vol] 82 mg/dL Normal 74-106 [facility] Comment on above: Performed By: #### C MP, BNP ####[facility] Zygynzzaob0555[address] [place], [place] [address]Dr. Airam Tripathi Potassium [Moles/Vol] 4.5 mmol/L Normal 3.5-5.1 [facility] Comment on above: Performed By: #### C MP, BNP ####[facility] Ntdvyffgac0230[address] [place], [place] [address]Dr. iAram Tripathi Protein [Mass/Vol] 5.3 g/dL Critically low 6.4-8.2 [facility] Comment on above: Performed By: #### C MP, BNP ####[facility] [address]afvgrmm[address] [place] [id number]. Airam Tripathi Sodium [Moles/Vol] 129 mmol/L Critically low 136-145 [facility] Comment on above: Performed By: #### C MP, BNP ####[facility] Nxhcpaxozp[address] [place], [place] [address]Dr. Airam Tripathi Urea nitrogen [Mass/Vol] 35.0 mg/dL Critically high 7.0-18.0 [facility] Comment on above: Performed By: #### C MP, BNP ####[facility] Zkhffaaiif7[address] [place], [place] [address]Dr. Airam Tripathi Urea nitrogen/Creatinine [Mass ratio] 24.1 mg/mg Normal [facility] Comment on above: Performed By: #### C MP, BNP ####[facility] Nihyhnasme8984[address] [place], [place] [address]Dr. Airam Tripathi T3, TOTAL (TRIIODOTHYRONINE) on 06-15-2022 T3, TOTAL 113 ng/dL Normal 71-180 [facility] Comment on above: Performed By: #### T 3TOTAL ####[facility] Dsytixfnpo27[address] [place], [place] [address]Dr. Airam Tripathi BNPon 06-14-2022 Natriuretic peptide B (Bld) [Mass/Vol] 1024.0 pg/mL Critically high <=900.0 [facility] Comment on above: Performed By: #### B UNION CARPENTER, CMP ####[facility] Wpejhppfvx9158[address] [place], [place] [address]Dr. Airam Tripathi CARDIAC CONSUELO 3-6on 2 CK [Catalytic activity/Vol] 116 U/L Normal 26-192 [facility] Comment on above: Performed By: #### C MREP ####[facility] Aoezsoohfh7050[address] [place], [place] [address]Dr. Airam Tripathi CK.MB [Mass/Vol] ng/mL Normal <=3.60 [facility] Comment on above: Performed By: #### C MREP ####[facility] Ybigbrkuhf[address] [place], [place] [address]Dr. Airam Tripathi HSTROP 6.0 pg/mL Normal 4.0-51.3 [facility] Comment on above: Result Comment: CUT- OFF POINTS HAVE BEEN ESTABLISHED BASED ON THE FOURTH UNIVERSAL DEFINITIONS OF MYOCARDIALINFARCTION. THE UPPER REFERENCE LIMIT (URL) OF TROPONIN, DEFINED THE 99TH PERCENTILE OFcTnI DISTRIBUTION IN A REFERENCE POPULATION, HAS BEEN CONFIRMED THE DECISION THRESHOLDFOR HI DIAGNOSIS. Performed By: #### C MREP ####[facility] [address] [place] [address]DrKianna Airam Deuce CBC AUTO DIFFon 06-14-2022 BASO # 0.0 103/ul Normal 0.0-0.1 [facility] Comment on above: Performed By: #### C BC ####[facility] Jportcdomz04[address] [place], [place] [address]DrKinana Tripathi Basophils/100 WBC (Bld) 0.3 % Normal 0.2-2.0 [facility] Comment on above: Performed By: #### C BC ####[facility] Gkehkswady40[address] [place], [place] [address]DrKianna Tripathi EO # 0.2 103/ul Normal 0.0-0.7 [facility] Comment on above: Performed By: #### C BC ####[facility] Aqxqfjvygq86[address] [place], [place] [address]DrKianna Selenaneil Tripathi Eosinophils/100 WBC (Bld) 2.0 % Normal 0.9-7.0 [facility] Comment on above: Performed By: #### C BC ####[facility] Msybmtmltc[address] [place], [place] [address]DrKianna Tripathi Erythrocyte distribution width (RBC) [Ratio] 12.8 % Normal 11.0-15.0 [facility] Comment on above: Performed By: #### C BC ####[facility] Kmwrzlvfqo[address] [place], [place] [address]DrKianna Tripathi Hematocrit (Bld) [Volume fraction] 27.4 % Critically low 36.0-48.0 [facility] Comment on above: Performed By: #### C BC ####[facility] Jpacmtjtey3325[address] [place], [place] [address]Dr. Airam Tripathi Hemoglobin (Bld) [Mass/Vol] 8.7 g/dL Critically low 12.0-16.0 [facility] Comment on above: Performed By: #### C BC ####[facility] [address] [place] [address]DrKianna Tripathi IG # 0.11 10e3/ul Critically high 0.00-0.03 [facility] Comment on above: Performed By: #### C BC ####[facility] Pyvdxuwyzv[address] [place] [address]DrKianna Tripathi IG % 1.1 % Critically high 0.0-0.5 [facility] Comment on above: Performed By: #### C BC ####[facility] Xtewvlvmin[address] [place], [place] [address]DrKianna Tripathi LYMPH # 0.9 103/ul Critically low 1.2-3.8 [facility] Comment on above: Performed By: #### C BC ####[facility] Eslpkpzckz39[address] [place], [place] [address]DrKianna Tripathi Lymphocytes/100 WBC (Bld) 9.7 % Critically low 20.5-60.0 [facility] Comment on above: Performed By: #### C BC ####[facility] Lmmjfohomq[address]64[address] [place], [place] [address]DrKianna Selenaneil Tripathi MANUAL DIFF REQ NO Normal [facility] Comment on above: Performed By: #### C BC ####[facility] Ikmspedabl[address] [place], [place] [address]DrKianna Tripathi MCH (RBC) [Entitic mass] 30.0 pg Normal 26.7-34.0 [facility] Comment on above: Performed By: #### C BC ####[facility] Ddkxqmzaeh[address]16[address] [place], [place] [address]DrKianna Tripathi MCHC (RBC) [Mass/Vol] 31.8 g/dL Normal 29.9-35.2 [facility] Comment on above: Performed By: #### C BC ####[facility] Mtsnkprojr9325[address] [place], [place] [address]DrKianna Aelgria Tripathi MCV (RBC) [Entitic vol] 94.5 fL Normal 81.0-99.0 [facility] Comment on above: Performed By: #### C BC ####[facility] [address]okcpcb[address] [place] [address]Dr. Airam Tripathi MONO # 0.6 103/ul Normal 0.3-0.8 [facility] Comment on above: Performed By: #### C BC ####[facility] Zltcilfbji[address] [place] [address]Dr. Airam Deuce Monocytes/100 WBC (Bld) 5.7 % Normal 1.7-12.0 [facility] Comment on above: Performed By: #### C BC ####[facility] Ykbxbuepho5750[address] [place], [place] [address]Dr. Airam Tripathi NEUT # 7.8 103/ul Critically high 1.4-6.5 [facility] Comment on above: Performed By: #### C BC ####[facility] Ehzctvqrtt164[address] [place], [place] [address]Dr. Airam Deuce Neutrophils/100 WBC (Bld) 81.2 % Critically high 43.0-75.0 [facility] Comment on above: Performed By: #### C BC ####[facility] Ngzcdlojdf3688[address] [place], [place] [address]Dr. Airam Deuce Platelet mean volume (Bld) [Entitic vol] 8.6 fL Critically low 9.5-13.5 [facility] Comment on above: Performed By: #### C BC ####[facility] Ptmuhrkvtw244[address] [place], [place] [address]Dr. Airam Deuce PLT 283 103/ul Normal 150-450 [facility] Comment on above: Performed By: #### C BC ####[facility] Uekzinocse6[address] [place], [place] [address]DrKainna Waltersneil Deuce RBC 2.90 106/ul Critically low 4.20-5.40 [facility] Comment on above: Performed By: #### C BC ####[facility] Ebneixbftn[address]30[address] [place], [place] [address]DrKianna Waltersneil Deuce WBC 9.6 103/ul Normal 4.0-11.0 [facility] Comment on above: Performed By: #### C BC ####[facility] Rjrimaocgu[address]97[address] [place], [place] [address]Dr. Airam Deuce OSMOLALITYon 06-14-2022 Osmolality [Osmolality] 273 mosm/kg Critically low 275-295 [facility] Comment on above: Performed By: #### O SMO ####[facility] Sjnzethlvt[address] [place], [place] [address]Dr. Airam Tripathi PROF 14(COMP METB)on 022 Albumin [Mass/Vol] 3.2 g/dL Critically low 3.4-5.0 [facility] Comment on above: Performed By: #### B UNION CARPENTER, CMP ####[facility] Xkfuhzpcts[address] [place], [place] [address]Dr. Airam Tripathi Albumin/Globulin [Mass ratio] 1.0 {ratio} Normal [facility] Comment on above: Performed By: #### B UNION CARPENTER, CMP ####[facility] Ntptxggtjc[address] [place], [place] [address]Dr. Airam Tripathi ALP [Catalytic activity/Vol] 154 U/L Critically high 46-116 [facility] Comment on above: Performed By: #### B UNION CARPENTER, CMP ####[facility] Tdyorofuar[address]66[address] [place], [place] [address]Dr. Airam Tripathi ALT [Catalytic activity/Vol] 17 U/L Normal 14-59 [facility] Comment on above: Performed By: #### B UNION CARPENTER, CMP ####[facility] Smlyywzpbp9768[address] [place], [place] [address]Dr. Airam Tripathi Anion gap [Moles/Vol] 12.0 mmol/L Normal [facility] Comment on above: Performed By: #### B UNION CARPENTER, CMP ####[facility] Odbsongixw7668[address] [place], [place] [address]Dr. Airam Tripathi AST [Catalytic activity/Vol] 25 U/L Normal 15-37 [facility] Comment on above: Performed By: #### B UNION CARPENTER, CMP ####[facility] Xszxnyubky[address] [place], [place] [address]Dr. Airam Tripathi Bilirubin [Mass/Vol] 0.3 mg/dL Normal 0.2-1.0 [facility] Comment on above: Performed By: #### B UNION CARPENTER, CMP ####[facility] Zxydiallew623[address] [place], [place] [address]Dr. Airam Tripathi Calcium [Mass/Vol] 7.6 mg/dL Critically low 8.5-10.1 Th [facility] Comment on above: Performed By: #### B UNION CARPENTER, CMP ####[facility] Ldyczaonup6080[address] [place], [place] [address]Dr. Airam Tripathi Chloride [Moles/Vol] 92 mmol/L Critically low 98-107 [facility] Comment on above: Performed By: #### B UNION CARPENTER, CMP ####[facility] Unifovvpyl6846[address] [place], [place] [address]Dr. Airam Tripathi CO2 [Moles/Vol] 25.2 mmol/L Normal 21.0-32.0 [facility] Comment on above: Performed By: #### B UNION CARPENTER, CMP ####[facility] Tdxkvcgnma[address]40[address] [place], [place] [address]Dr. Airam Tripathi Creatinine [Mass/Vol] 1.83 mg/dL Critically high 0.55-1.02 [facility] Comment on above: Performed By: #### B UNION CARPENTER, CMP ####[facility] Zsocwlbmme[address] [place], [place] [address]Dr. Airam Tripathi EGFR-AF VENEZUELAN 34 mL/min/1.73m2 Critically low >=60 [facility] Comment on above: Performed By: #### B UNION CARPENTER, CMP ####[facility] Uoaauslbml[address] [place], [place] [address]Dr. Airam Tripathi EGFR-NON AF VENEZUELAN 28 mL/min/1.73m2 Critically low >=60 [facility] Comment on above: Performed By: #### B UNION CARPENTER, CMP ####[facility] Ailghymfzw[address] [place], [place] [address]Dr. Airam Tripathi Globulin (S) [Mass/Vol] 3.1 g/dL Normal [facility] Comment on above: Performed By: #### B UNION CARPENTER, CMP ####[facility] T[address]qbwtku[address] [place] [address]Dr. Selenaneil Deuce Glucose [Mass/Vol] 77 mg/dL Normal 74-106 [facility] Comment on above: Performed By: #### B UNION CARPENTER, CMP ####[facility] Ngmsrgaqex[address] [place] [address]Dr. Airam Tripathi Potassium [Moles/Vol] 4.2 mmol/L Normal 3.5-5.1 [facility] Comment on above: Performed By: #### B UNION CARPENTER, CMP ####[facility] Qoosrfcoxr[address] [place] [address]Dr. Airam Tripathi Protein [Mass/Vol] 6.3 g/dL Critically low 6.4-8.2 [facility] Comment on above: Performed By: #### B UNION CARPENTER, CMP ####[facility] Yvtxsmvack[address]56[address] [place], [place] [address]Dr. Airam Tripathi Sodium [Moles/Vol] 125 mmol/L Critically low 136-145 [facility] Comment on above: Performed By: #### B UNION CARPENTER, CMP ####[facility] Vvlbfpgbww[address] [place], [place] [address]Dr. Airam Tripathi Urea nitrogen [Mass/Vol] 35.0 mg/dL Critically high 7.0-18.0 [facility] Comment on above: Performed By: #### B UNION CARPENTER, CMP ####[facility] Slvijbqpyu2567[address] [place], [place] [address]Dr. Airam Tripathi Urea nitrogen/Creatinine [Mass ratio] 19.1 mg/mg Normal [facility] Comment on above: Performed By: #### B UNION CARPENTER, CMP ####[facility] Jnxqytotwu[address] [place], [place] [address]Dr. Airam Tripathi UA RANDOM W/MICROSCOPICon BACTERIA TRACE Abnormal NONE SEEN [facility] Comment on above: Performed By: #### U AMIC ####[facility] Bwmdfxhqhq92[address] [place], [place] [address]Dr. Airam Tripathi Bilirubin Ql (U) Negative Normal NEGATIVE [facility] Comment on above: Performed By: #### U AMIC ####[facility] [address]ftd[address] [place] [address]Dr. Airam Tripathi CAST NONE SEEN Normal NONE SEEN [facility] Comment on above: Performed By: #### U AMIC ####[facility] Ozamfyqocx[address] [place] [address]Dr. Airam Tripathi Clarity (U) CLEAR Normal CLEAR [facility] Comment on above: Performed By: #### U AMIC ####[facility] [address]xoxafsr[address] [place] [address]Dr. Airam Tripathi Color (U) LT. YELLOW Normal YELLOW [facility] Comment on above: Performed By: #### U AMIC ####[facility] [address]jwkmugwlf[address] [place] [address]Dr. Airam Tripathi Crystals LM Nom (Urine sed) NONE SEEN Normal NONE SEEN [facility] Comment on above: Performed By: #### U AMIC ####[facility] Jlckvqwair[address] [place], [place] [address]Dr. Airam Tripathi Epithelial cells LM Ql (Urine sed) FEW Abnormal NONE SEEN /RARE [facility] Comment on above: Performed By: #### U AMIC ####[facility] Frtqmqvqvo34[address] [place], [place] [address]Dr. Airam Tripathi Glucose Ql (U) Negative Normal NEGATIVE [facility] Comment on above: Performed By: #### U AMIC ####[facility] [address]ypru[address]rka[address] [place] [address]Dr. Airam Tripathi Hemoglobin Ql (U) Negative Normal NEGATIVE [facility] Comment on above: Performed By: #### U AMIC ####[facility] Fgbwsuqxpv40[address] [place] [address]Dr. Airam Tripathi Ketones Ql (U) Negative Normal NEGATIVE [facility] Comment on above: Performed By: #### U AMIC ####[facility] E[address]klbdwxs[address] [place] [address]Dr. Airam Tripathi LEUKOCYTES MODERATE Abnormal NEGATIVE [facility] Comment on above: Performed By: #### U AMIC ####[facility] Flppemfpiw[address] [place] [address]Dr. Selenaneil Tripathi MUCOUS NONE SEEN Normal NONE SEEN [facility] Comment on above: Performed By: #### U AMIC ####[facility] Uvckvwinmf[address] [place] [address]Dr. Airam Tripathi Nitrite Ql (U) Negative Normal NEGATIVE [facility] Comment on above: Performed By: #### U AMIC ####[facility] Cvihpxvtue[address] [place] [address]Dr. Airam Tripathi pH (U) 5.5 [pH] Normal 5-9 [facility] Comment on above: Performed By: #### U AMIC ####[facility] Dwaweymyei[address] [place], [place] [address]Dr. Airam Tripathi RBC 0-2 Normal 0-2 [facility] Comment on above: Performed By: #### U AMIC ####[facility] Jejqugvxer12[address] [place], [place] [address]Dr. Airam Tripathi SPEC GRAVITY 1.020 Normal 1.005-<=1. 025 [facility] Comment on above: Performed By: #### U AMIC ####[facility] I[address]ogmeufs[address] [place], [place] [address]Dr. Airam Tripathi UA PROTEIN Negative Normal NEGATIVE/ TRACE [facility] Comment on above: Performed By: #### U AMIC ####[facility] Xmeavkxhyf[address] [place] [address]Dr. Airam Tripathi Urobilinogen Qn (U) 0.2 {Ligia'U}/dL Normal 0.2 - 1. 0 [facility] Comment on above: Performed By: #### U AMIC ####[facility] Furcuhnssk[address] [place], [place] [address]Dr. Airam Tripathi WBC 5-10 Abnormal NONE SEEN [facility] Comment on above: Performed By: #### U AMIC ####[facility] Litgwnretf[address] [place], [place] [address]Dr. Airam Tripathi BNPon 06-13-2022 Natriuretic peptide B (Bld) [Mass/Vol] 1496.0 pg/mL Critically high <=900.0 [facility] Comment on above: Performed By: #### T 4, BNP, MG, TSH, CMADM, CRP, CMP ####[facility] [address] [place] [address]Dr. Airam Tripathi CARDIAC CONSUELO 3-6on 2 CK [Catalytic activity/Vol] 125 U/L Normal 26-192 [facility] Comment on above: Performed By: #### C MREP ####[facility] [address]ks[address] [place] [address]Dr. iAram Tripathi CK.MB [Mass/Vol] ng/mL Normal <=3.60 [facility] Comment on above: Performed By: #### C MREP ####[facility] Okbrnoxf[address] [place], [place] [address]Dr. Airam Tripathi HSTROP 5.8 pg/mL Normal 4.0-51.3 [facility] Comment on above: Result Comment: CUT- OFF POINTS HAVE BEEN ESTABLISHED BASED ON THE FOURTH UNIVERSAL DEFINITIONS OF MYOCARDIALINFARCTION. THE UPPER REFERENCE LIMIT (URL) OF TROPONIN, DEFINED THE 99TH PERCENTILE OFcTnI DISTRIBUTION IN A REFERENCE POPULATION, HAS BEEN CONFIRMED THE DECISION THRESHOLDFOR HI DIAGNOSIS. Performed By: #### C MREP ####[facility] [address]ifoyoxwq[address] [place], [place] [address]Dr. Airam Tripathi CARDIAC CONSUELO ADMITon 022 CK [Catalytic activity/Vol] 121 U/L Normal 26-192 [facility] Comment on above: Performed By: #### T 4, BNP, MG, TSH, CMADM, CRP, CMP ####[facility] [address] [place] [id number]. Airam Tripathi CK.MB [Mass/Vol] 3.06 ng/mL Normal <=3.60 [facility] Comment on above: Performed By: #### T 4, BNP, MG, TSH, CMADM, CRP, CMP ####[facility] [address] [place] [address]Dr. Airam Tripathi HSTROP 6.9 pg/mL Normal 4.0-51.3 [facility] Comment on above: Result Comment: CUT- OFF POINTS HAVE BEEN ESTABLISHED BASED ON THE FOURTH UNIVERSAL DEFINITIONS OF MYOCARDIALINFARCTION. THE UPPER REFERENCE LIMIT (URL) OF TROPONIN, DEFINED THE 99TH PERCENTILE OFcTnI DISTRIBUTION IN A REFERENCE POPULATION, HAS BEEN CONFIRMED THE DECISION THRESHOLDFOR HI DIAGNOSIS. Performed By: #### T 4, BNP, MG, TSH, CMADM, CRP, CMP ####[facility] [address] [place] [address]Dr. Airam Tripathi KATHY 124 ng/mL Critically high 9-82 [facility] Comment on above: Performed By: #### T 4, BNP, MG, TSH, CMADM, CRP, CMP ####[facility] [address]uz[address] [place] [address]Dr. Airam Tripathi CBC AUTO DIFFon 06-13-2022 BASO # 0.0 103/ul Normal 0.0-0.1 [facility] Comment on above: Performed By: #### C BC ####[facility] [address]ccuc[address] [place], [place] [address]Dr. Airam Tripathi Basophils/100 WBC (Bld) 0.2 % Normal 0.2-2.0 [facility] Comment on above: Performed By: #### C BC ####[facility] Ziicvbpote[address] [place], [place] [address]Dr. Airam Tripathi EO # 0.2 103/ul Normal 0.0-0.7 [facility] Comment on above: Performed By: #### C BC ####[facility] Ugmpkvvkhq[address] [place], [place] [address]Dr. Airam Tripathi Eosinophils/100 WBC (Bld) 1.5 % Normal 0.9-7.0 [facility] Comment on above: Performed By: #### C BC ####[facility] Mpvenkvtgb[address] [place], [place] [address]Dr. Airam Tripathi Erythrocyte distribution width (RBC) [Ratio] 12.7 % Normal 11.0-15.0 [facility] Comment on above: Performed By: #### C BC ####[facility] Gyzvcocwxh[address] [place], [place] [address]DrKianna Tripathi Hematocrit (Bld) [Volume fraction] 30.0 % Critically low 36.0-48.0 [facility] Comment on above: Performed By: #### C BC ####[facility] Nrhovwrwhl[address] [place], [place] [address]DrKianna Tripathi Hemoglobin (Bld) [Mass/Vol] 9.6 g/dL Critically low 12.0-16.0 [facility] Comment on above: Performed By: #### C BC ####[facility] Yscvirdzvm[address] [place], [place] [address]DrKianna Tripathi IG # 0.11 10e3/ul Critically high 0.00-0.03 [facility] Comment on above: Performed By: #### C BC ####[facility] Mtelbtgbkx[address] [place], [place] [address]DrKianna Tripathi IG % 1.1 % Critically high 0.0-0.5 [facility] Comment on above: Performed By: #### C BC ####[facility] Hmcabuikyg[address] [place], [place] [address]DrKianna Tripathi LYMPH # 1.5 103/ul Normal 1.2-3.8 [facility] Comment on above: Performed By: #### C BC ####[facility] Zxripfahwj[address] [place], [place] [address]DrKianna Tripathi Lymphocytes/100 WBC (Bld) 14.9 % Critically low 20.5-60.0 [facility] Comment on above: Performed By: #### C BC ####[facility] Qkdvnjjdol[address] [place], [place] [address]DrKianna Tripathi MANUAL DIFF REQ NO Normal [facility] Comment on above: Performed By: #### C BC ####[facility] Ljzneynzyx[address] [place], [place] [address]DrKianna Tripathi MCH (RBC) [Entitic mass] 30.0 pg Normal 26.7-34.0 [facility] Comment on above: Performed By: #### C BC ####[facility] Hitobzrrke[address] [place], [place] [address]DrKianna Tripathi MCHC (RBC) [Mass/Vol] 32.0 g/dL Normal 29.9-35.2 [facility] Comment on above: Performed By: #### C BC ####[facility] [address]thyebla[address] [place] [address]Dr. Airam Tripathi MCV (RBC) [Entitic vol] 93.8 fL Normal 81.0-99.0 [facility] Comment on above: Performed By: #### C BC ####[facility] Watoxfbios[address] [place], [place] [address]Dr. Airam Tripathi MONO # 0.8 103/ul Normal 0.3-0.8 [facility] Comment on above: Performed By: #### C BC ####[facility] Fhgcafimrl[address] [place], [place] [address]Dr. Airam Tripathi Monocytes/100 WBC (Bld) 7.3 % Normal 1.7-12.0 [facility] Comment on above: Performed By: #### C BC ####[facility] Alsrirouqa[address] [place], [place] [address]Dr. Airam Tripathi NEUT # 7.8 103/ul Critically high 1.4-6.5 [facility] Comment on above: Performed By: #### C BC ####[facility] Rvmaceinmz[address] [place], [place] [address]Dr. Airam Tripathi Neutrophils/100 WBC (Bld) 75.0 % Normal 43.0-75.0 [facility] Comment on above: Performed By: #### C BC ####[facility] [address]dbajdfbzv[address] [place], [place] [address]Dr. Airam Tripathi Platelet mean volume (Bld) [Entitic vol] 9.1 fL Critically low 9.5-13.5 [facility] Comment on above: Performed By: #### C BC ####[facility] Wzzkhlscqu[address] [place], [place] [address]Dr. Airam Tripathi PLT 341 103/ul Normal 150-450 [facility] Comment on above: Performed By: #### C BC ####[facility] Mdymrgxijq[address] [place], [place] [address]Dr. Airam Tripathi RBC 3.20 106/ul Critically low 4.20-5.40 [facility] Comment on above: Performed By: #### C BC ####[facility] [address] [place], [place] [address]ZvKianna Tripathi WBC 10.4 103/ul Normal 4.0-11.0 [facility] Comment on above: Performed By: #### C BC ####[facility] [address]eb[address] [place], [place] [address]Sg. Airam Tripathi CRPon 06-13-2022 CRP [Mass/Vol] mg/L Normal <=1.0 [facility] Comment on above: Performed By: #### T 4, BNP, MG, TSH, CMADM, CRP, CMP ####[facility] [address] [place], [place] [address]La. Airam Tripathi CT HEAD WO CONon 06-13-2022 CT HEAD WO CON Normal [facility] Covid-19 PCR (CVDTB)on 05-26 SARS-CoV-2 (COVID-19) RNA MIKE+probe Ql (Unsp spec) Not detected Normal NOT DETECTED [facility] Comment on above: Result Comment: When diagnostic testing is negative, the possibility of a false negative should be considered inthe context of a patient's recent exposures and the presence of clinical signs and symptomsconsistent with SARS-CoV-2.This test is not yet approved or cleared by the [place] FDA. When there are no FDA-approved or cleared tests available, and other criteria are met, FDA can make tests available under an emergency access mechanism called an Emergency Use Authorization (EUA). The EUA for this test is supported by the Leader Writer of Health and Human Service's declaration that circumstances exist to justify the emergency use of in vitro diagnostics for the detection and/or diagnosis of the virus that causes COVID-19. This EUA will remain in effect for the duration of the COVID-19 declaration justifying emergency of IVDs, unless it is terminated or revoked by the FDA (after which the test may no longer be used). Performed By: #### C VDTBH ####[facility] [address] [place], [place] [address]Oo. Airam Tripathi LACTATE/LACTIC ACIDon 2021 Lactate [Moles/Vol] 0.5 mmol/L Normal 0.4-1.9 [facility] Comment on above: Performed By: #### L ACT ####[facility] [address] [place] [address]Dr. Airam Tripathi MAGNESIUMon 06-13-2022 Magnesium [Mass/Vol] 1.9 mg/dL Normal 1.8-2.4 [facility] Comment on above: Performed By: #### T 4, BNP, MG, TSH, CMADM, CRP, CMP ####[facility] [address]mc[address] [place] [address]Dr. Airam Tripathi PROF 14(COMP METB)on 022 Albumin [Mass/Vol] 3.8 g/dL Normal 3.4-5.0 [facility] Comment on above: Performed By: #### T 4, BNP, MG, TSH, CMADM, CRP, CMP ####[facility] [address]nncowlw[address] [place] [address]Dr. Airam Tripathi Albumin/Globulin [Mass ratio] 1.1 {ratio} Normal [facility] Comment on above: Performed By: #### T 4, BNP, MG, TSH, CMADM, CRP, CMP ####[facility] [address] [place] [address]Dr. Airam Tripathi ALP [Catalytic activity/Vol] 161 U/L Critically high 46-116 [facility] Comment on above: Performed By: #### T 4, BNP, MG, TSH, CMADM, CRP, CMP ####[facility] [address] [place] [address]Dr. Airam Tripathi ALT [Catalytic activity/Vol] 21 U/L Normal 14-59 [facility] Comment on above: Performed By: #### T 4, BNP, MG, TSH, CMADM, CRP, CMP ####[facility] [address]wf[address] [place] [address]Dr. Airam Tripathi Anion gap [Moles/Vol] 12.6 mmol/L Normal [facility] Comment on above: Performed By: #### T 4, BNP, MG, TSH, CMADM, CRP, CMP ####[facility] [address]jabdlsic[address] [place] [address]Dr. Airam Tripathi AST [Catalytic activity/Vol] 30 U/L Normal 15-37 [facility] Comment on above: Performed By: #### T 4, BNP, MG, TSH, CMADM, CRP, CMP ####[facility] [address]hx[address]rf[address] [place], [place] [address]Dr. Airam Tripathi Bilirubin [Mass/Vol] 0.3 mg/dL Normal 0.2-1.0 [facility] Comment on above: Performed By: #### T 4, BNP, MG, TSH, CMADM, CRP, CMP ####[facility] R[address]nfxxikb[address] [place], [place] [address]Dr. Airam Tripathi Calcium [Mass/Vol] 8.8 mg/dL Normal 8.5-10.1 [facility] Comment on above: Performed By: #### T 4, BNP, MG, TSH, CMADM, CRP, CMP ####[facility] Smmsusyljd[address] [place], [place] [address]Dr. Airam Tripathi Chloride [Moles/Vol] 91 mmol/L Critically low 98-107 [facility] Comment on above: Performed By: #### T 4, BNP, MG, TSH, CMADM, CRP, CMP ####[facility] Tdgtbobmml[address] [place], [place] [address]Dr. Airam Tripathi CO2 [Moles/Vol] 26.9 mmol/L Normal 21.0-32.0 [facility] Comment on above: Performed By: #### T 4, BNP, MG, TSH, CMADM, CRP, CMP ####[facility] Djtjfeirhe[address] [place], [place] [address]Dr. Airam Tripathi Creatinine [Mass/Vol] 1.83 mg/dL Critically high 0.55-1.02 [facility] Comment on above: Performed By: #### T 4, BNP, MG, TSH, CMADM, CRP, CMP ####[facility] Tprtkcpbko[address] [place], [place] [address]Dr. Airam Tripathi EGFR-AF VENEZUELAN 34 mL/min/1.73m2 Critically low >=60 [facility] Comment on above: Performed By: #### T 4, BNP, MG, TSH, CMADM, CRP, CMP ####[facility] V[address]qgf[address] [place] [address]Dr. Airam Tripathi EGFR-NON AF VENEZUELAN 28 mL/min/1.73m2 Critically low >=60 [facility] Comment on above: Performed By: #### T 4, BNP, MG, TSH, CMADM, CRP, CMP ####[facility] Tzqudcyvvm[address] [place] [address]Dr. Airam Tripathi Globulin (S) [Mass/Vol] 3.5 g/dL Normal [facility] Comment on above: Performed By: #### T 4, BNP, MG, TSH, CMADM, CRP, CMP ####[facility] Bgjblzyzzc[address] [place], [place] [address]Dr. Airam Tripathi Glucose [Mass/Vol] 96 mg/dL Normal 74-106 [facility] Comment on above: Performed By: #### T 4, BNP, MG, TSH, CMADM, CRP, CMP ####[facility] Vmhvqhgymp[address] [place] [address]Dr. Airam Tripatih Potassium [Moles/Vol] 4.5 mmol/L Normal 3.5-5.1 [facility] Comment on above: Performed By: #### T 4, BNP, MG, TSH, CMADM, CRP, CMP ####[facility] [address]rzhuhukrz[address] [place], [place] [address]Dr. Airam Tripathi Protein [Mass/Vol] 7.3 g/dL Normal 6.4-8.2 [facility] Comment on above: Performed By: #### T 4, BNP, MG, TSH, CMADM, CRP, CMP ####[facility] Uqpwuawlfq[address] [place], [place] [address]Dr. Airam Tripathi Sodium [Moles/Vol] 126 mmol/L Critically low 136-145 [facility] Comment on above: Performed By: #### T 4, BNP, MG, TSH, CMADM, CRP, CMP ####[facility] [address]hdvwmgfv[address] [place] [id number]. Airam Tripathi Urea nitrogen [Mass/Vol] 34.0 mg/dL Critically high 7.0-18.0 [facility] Comment on above: Performed By: #### T 4, BNP, MG, TSH, CMADM, CRP, CMP ####[facility] [address]az[address]joapy[address] [place] [address]Dr. Airam Tripathi Urea nitrogen/Creatinine [Mass ratio] 18.6 mg/mg Normal [facility] Comment on above: Performed By: #### T 4, BNP, MG, TSH, CMADM, CRP, CMP ####[facility] Poxpvsqtrm[address] [place] [address]Dr. Aiarm Tripathi Albumin [Mass/Vol] 3.4 g/dL Normal 3.4-5.0 [facility] Comment on above: Performed By: #### C MP ####[facility] [address]jodslahk[address] [place], [place] [address]Dr. Airam Tripathi Albumin/Globulin [Mass ratio] 1.0 {ratio} Normal [facility] Comment on above: Performed By: #### C MP ####[facility] [address]fntfavgas[address] [place], [place] [address]Dr. Airam Tripathi ALP [Catalytic activity/Vol] 151 U/L Critically high 46-116 [facility] Comment on above: Performed By: #### C MP ####[facility] K[address]qrkzyuk[address] [place] [address]Dr. Airam Tripathi ALT [Catalytic activity/Vol] 20 U/L Normal 14-59 [facility] Comment on above: Performed By: #### C MP ####[facility] Btkutjndty[address] [place] [address]Dr. Airam Tripathi Anion gap [Moles/Vol] 11.7 mmol/L Normal [facility] Comment on above: Performed By: #### C MP ####[facility] [address]bwyisdrnr[address] [place], [place] [address]Dr. Airam Tripathi AST [Catalytic activity/Vol] 28 U/L Normal 15-37 [facility] Comment on above: Performed By: #### C MP ####[facility] [address]apyzuco[address] [place] [id number]. Airam Tripathi Bilirubin [Mass/Vol] 0.3 mg/dL Normal 0.2-1.0 [facility] Comment on above: Performed By: #### C MP ####[facility] Gajfh[address]htke[address] [place] [id number]. Airam Tripathi Calcium [Mass/Vol] 8.5 mg/dL Normal 8.5-10.1 [facility] Comment on above: Performed By: #### C MP ####[facility] [address] [place], [place] [address]Dr. Airam Tripathi Chloride [Moles/Vol] 91 mmol/L Critically low 98-107 [facility] Comment on above: Performed By: #### C MP ####[facility] Eoyrqcxvwm[address] [place], [place] [address]Dr. Airam Tripathi CO2 [Moles/Vol] 28.3 mmol/L Normal 21.0-32.0 [facility] Comment on above: Performed By: #### C MP ####[facility] H[address]xy[address]dl[address] [place], [place] [address]Dr. Airam Tripathi Creatinine [Mass/Vol] 1.68 mg/dL Critically high 0.55-1.02 [facility] Comment on above: Performed By: #### C MP ####[facility] Kw[address]wtsgyr[address] [place], [place] [address]Dr. Airam Tripathi EGFR-AF VENEZUELAN 38 mL/min/1.73m2 Critically low >=60 [facility] Comment on above: Performed By: #### C MP ####[facility] [address]udjjj[address] [place] [id number]. Airam Tripathi EGFR-NON AF VENEZUELAN 31 mL/min/1.73m2 Critically low >=60 [facility] Comment on above: Performed By: #### C MP ####[facility] [address]wqaxbjjvp[address] [place], [place] [address]Dr. Airam Deuce Globulin (S) [Mass/Vol] 3.5 g/dL Normal [facility] Comment on above: Performed By: #### C MP ####[facility] Callwcmcdh[address] [place] [id number]. Airam Tripathi Glucose [Mass/Vol] 74 mg/dL Normal 74-106 [facility] Comment on above: Performed By: #### C MP ####[facility] Kpsirceiiu3[address] [place] [id number]. Airam Tripathi Potassium [Moles/Vol] 4.0 mmol/L Normal 3.5-5.1 [facility] Comment on above: Performed By: #### C MP ####[facility] [address] [place] [address]Dr. Airam Tripathi Protein [Mass/Vol] 6.9 g/dL Normal 6.4-8.2 [facility] Comment on above: Performed By: #### C MP ####[facility] F[address]kwrs[address] [place], [place] [address]Dr. Airam Tripathi Sodium [Moles/Vol] 127 mmol/L Critically low 136-145 [facility] Comment on above: Performed By: #### C MP ####[facility] [address]ohgqwtj[address] [place], [place] [address]Dr. Airam Tripathi Urea nitrogen [Mass/Vol] 29.0 mg/dL Critically high 7.0-18.0 [facility] Comment on above: Performed By: #### C MP ####[facility] [address]rzqjtrbs[address] [place], [place] [address]Dr. Airam Tripathi Urea nitrogen/Creatinine [Mass ratio] 17.3 mg/mg Normal [facility] Comment on above: Performed By: #### C MP ####[facility] Vewuuofuxu[address] [place], [place] [address]Dr. Airam Tripathi T4on 06-13-2022 T4 [Mass/Vol] 6.80 ug/dL Normal 4.80-13.90 [facility] Comment on above: Performed By: #### T 4, BNP, MG, TSH, CMADM, CRP, CMP ####[facility] Si[address]uggc[address] [place] [address]Dr. Airam Tripathi TSHon 06-13-2022 TSH 0.101 uIU/mL Critically low 0.358-3.74 0 [facility] Comment on above: Performed By: #### T 4, BNP, MG, TSH, CMADM, CRP, CMP ####[facility] Zoodwfytag[address] [place], [place] [address]Dr. Airam Tripathi OSMOLALITYon 06-08-2022 Osmolality [Osmolality] 272 mosm/kg Critically low 275-295 [facility] Comment on above: Performed By: #### O SMO ####[facility] Cohdswhipq[address] [place], [place] [address]Dr. Airam Tripathi CBC AUTO DIFFon 06-06-2022 BASO # 0.0 103/ul Normal 0.0-0.1 [facility] Comment on above: Performed By: #### C BC ####[facility] [address]aqosbqs[address] [place], [place] [address]Dr. iAram Tripathi Basophils/100 WBC (Bld) 0.3 % Normal 0.2-2.0 [facility] Comment on above: Performed By: #### C BC ####[facility] Bacdovphlb[address] [place], [place] [address]Dr. Airam Tripathi EO # 0.2 103/ul Normal 0.0-0.7 [facility] Comment on above: Performed By: #### C BC ####[facility] Mwsrmmmyxj[address] [place], [place] [address]Dr. Airam Tripathi Eosinophils/100 WBC (Bld) 2.5 % Normal 0.9-7.0 [facility] Comment on above: Performed By: #### C BC ####[facility] [address]sozcmqkb[address] [place], [place] [address]Dr. Airam Tripathi Erythrocyte distribution width (RBC) [Ratio] 12.9 % Normal 11.0-15.0 [facility] Comment on above: Performed By: #### C BC ####[facility] [address]ijsmqpr[address] [place], [place] [address]Dr. Airam Tripathi Hematocrit (Bld) [Volume fraction] 29.8 % Critically low 36.0-48.0 [facility] Comment on above: Performed By: #### C BC ####[facility] [address]vdejv[address] [place] [id number]. Airam Tripathi Hemoglobin (Bld) [Mass/Vol] 9.7 g/dL Critically low 12.0-16.0 [facility] Comment on above: Performed By: #### C BC ####[facility] [address]waybym[address] [place] [id number]. Airam Tripathi IG # 0.03 10e3/ul Normal 0.00-0.03 [facility] Comment on above: Performed By: #### C BC ####[facility] [address]deuabnk[address] [place] [address]Dr. Airam Tripathi IG % 0.3 % Normal 0.0-0.5 [facility] Comment on above: Performed By: #### C BC ####[facility] Bzpittyvjc[address] [place], [place] [address]Dr. Airam Tripathi LYMPH # 1.3 103/ul Normal 1.2-3.8 [facility] Comment on above: Performed By: #### C BC ####[facility] [address]piqxll[address] [place] [address]Dr. Airam Tripathi Lymphocytes/100 WBC (Bld) 14.6 % Critically low 20.5-60.0 [facility] Comment on above: Performed By: #### C BC ####[facility] [address]yn[address] [place] [address]Dr. Airam Tripathi MANUAL DIFF REQ NO Normal [facility] Comment on above: Performed By: #### C BC ####[facility] [address]rznajglkm8[address] [place] [id number]. Airam Tripathi MCH (RBC) [Entitic mass] 30.6 pg Normal 26.7-34.0 [facility] Comment on above: Performed By: #### C BC ####[facility] W[address]cqfuacv[address] [place] [id number]. Airam Tripathi MCHC (RBC) [Mass/Vol] 32.6 g/dL Normal 29.9-35.2 [facility] Comment on above: Performed By: #### C BC ####[facility] [address]weeilji[address] [place] [id number]. Airam Tripathi MCV (RBC) [Entitic vol] 94.0 fL Normal 81.0-99.0 [facility] Comment on above: Performed By: #### C BC ####[facility] Erynlzzenc[address] [place] [id number]. Airam Tripathi MONO # 0.5 103/ul Normal 0.3-0.8 [facility] Comment on above: Performed By: #### C BC ####[facility] Fvgmisgxne[address] [place] [address]Dr. Airam Tripathi Monocytes/100 WBC (Bld) 5.7 % Normal 1.7-12.0 [facility] Comment on above: Performed By: #### C BC ####[facility] [address]fe[address] [place], [place] [address]Dr. Airam Tripathi NEUT # 6.9 103/ul Critically high 1.4-6.5 [facility] Comment on above: Performed By: #### C BC ####[facility] [address] [place], [place] [id number]. Airam Tripathi Neutrophils/100 WBC (Bld) 76.6 % Critically high 43.0-75.0 [facility] Comment on above: Performed By: #### C BC ####[facility] [address]gwwulkq[address] [place], [place] [id number]. Airam Tripathi Platelet mean volume (Bld) [Entitic vol] 9.2 fL Critically low 9.5-13.5 [facility] Comment on above: Performed By: #### C BC ####[facility] Spncdmuhpw[address] [place], [place] [id number]. Airam Tripathi PLT 271 103/ul Normal 150-450 [facility] Comment on above: Performed By: #### C BC ####[facility] Tzmnxrfsso[address] [place], [place] [id number]. Selenaneil Deuce RBC 3.17 106/ul Critically low 4.20-5.40 [facility] Comment on above: Performed By: #### C BC ####[facility] Qvtlhrbzrn[address] [place] [address]Dr. Airam Tripathi WBC 9.1 103/ul Normal 4.0-11.0 [facility] Comment on above: Performed By: #### C BC ####[facility] Kqjejsugsu[address] [place] [address]Dr. Airam Tripathi PROF 14(COMP METB)on 022 Albumin [Mass/Vol] 3.4 g/dL Normal 3.4-5.0 [facility] Comment on above: Performed By: #### C MP ####[facility] Asvebxpmns64[address] [place] [address]Dr. Airam Tripathi Albumin/Globulin [Mass ratio] 1.0 {ratio} Normal [facility] Comment on above: Performed By: #### C MP ####[facility] Zswrbukodl[address] [place], [place] [address]Dr. Airam Tripathi ALP [Catalytic activity/Vol] 156 U/L Critically high 46-116 [facility] Comment on above: Performed By: #### C MP ####[facility] Crxisexoxg54[address] [place] [address]Dr. Airam Tripathi ALT [Catalytic activity/Vol] 18 U/L Normal 14-59 [facility] Comment on above: Performed By: #### C MP ####[facility] Ibqutqejbe9728 [place] [address]Dr. Airam Tripathi Anion gap [Moles/Vol] 10.8 mmol/L Normal [facility] Comment on above: Performed By: #### C MP ####[facility] Ezsqyrexdf2459 [place] [address]Dr. Airam Tripathi AST [Catalytic activity/Vol] 27 U/L Normal 15-37 [facility] Comment on above: Performed By: #### C MP ####[facility] Oapflnjiax8404 [place] [address]Dr. Airam Tripathi Bilirubin [Mass/Vol] 0.2 mg/dL Normal 0.2-1.0 [facility] Comment on above: Performed By: #### C MP ####[facility] Phtdnwflrv0934 [place] [id number]. Airam Tripathi Calcium [Mass/Vol] 8.1 mg/dL Critically low 8.5-10.1 [facility] Comment on above: Performed By: #### C MP ####[facility] Nyztjiwzfu9860 [place] [phone]. Airam Tripathi Chloride [Moles/Vol] 92 mmol/L Critically low 98-107 [facility] Comment on above: Performed By: #### C MP ####[facility] Nvyepddprl[address] [place], [place] [address]Dr. Airam Tripathi CO2 [Moles/Vol] 27.4 mmol/L Normal 21.0-32.0 [facility] Comment on above: Performed By: #### C MP ####[facility] Jderaailay[address] [place], [place] [address]Dr. Airam Tripathi Creatinine [Mass/Vol] 1.57 mg/dL Critically high 0.55-1.02 [facility] Comment on above: Performed By: #### C MP ####[facility] Rrzyamjhfo49[address] [place], [place] [address]Dr. Airam Tripathi EGFR-AF VENEZUELAN 41 mL/min/1.73m2 Critically low >=60 [facility] Comment on above: Performed By: #### C MP ####[facility] Shelwsqpbk[address] [place], [place] [address]Dr. Airam Tripathi EGFR-NON AF VENEZUELAN 34 mL/min/1.73m2 Critically low >=60 [facility] Comment on above: Performed By: #### C MP ####[facility] Jrinjqtycb2964[address] [place], [place] [address]Dr. Airam Tripathi Globulin (S) [Mass/Vol] 3.4 g/dL Normal [facility] Comment on above: Performed By: #### C MP ####[facility] Hobtgxmyow5236[address] [place], [place] [address]Dr. Airam Tripathi Glucose [Mass/Vol] 82 mg/dL Normal 74-106 [facility] Comment on above: Performed By: #### C MP ####[facility] Wloxwvlrvc66[address] [place], [place] [address]Dr. Airam Tripathi Potassium [Moles/Vol] 4.2 mmol/L Normal 3.5-5.1 [facility] Comment on above: Performed By: #### C MP ####[facility] Srzwcjktgd6918[address] [place], [place] [address]Dr. Airam Tripathi Protein [Mass/Vol] 6.8 g/dL Normal 6.4-8.2 [facility] Comment on above: Performed By: #### C MP ####[facility] Ecklxukxza396[address] [place], [place] [address]Dr. Airam Tripathi Sodium [Moles/Vol] 126 mmol/L Critically low 136-145 [facility] Comment on above: Performed By: #### C MP ####[facility] Thhcntjity492[address] [place], [place] [address]Dr. Airam Tripathi Urea nitrogen [Mass/Vol] 35.0 mg/dL Critically high 7.0-18.0 [facility] Comment on above: Performed By: #### C MP ####[facility] Ujepvlzazn[address] [place], [place] [address]Dr. Airam Tripathi Urea nitrogen/Creatinine [Mass ratio] 22.3 mg/mg Normal [facility] Comment on above: Performed By: #### C MP ####[facility] Yqbslfceta678[address] [place], [place] [address]Dr. Airam Tripathi OSMOLALITYon 06-02-2022 Osmolality [Osmolality] 276 mosm/kg Normal 275-295 [facility] Comment on above: Performed By: #### O SMO ####[facility] Lzrnbsjhto024[address] [place], [place] [address]Dr. Airam Tripathi CBC AUTO DIFFon 06-01-2022 BASO # 0.1 103/ul Normal 0.0-0.1 [facility] Comment on above: Performed By: #### C BC ####[facility] Dwijxahlen[address] [place], [place] [address]Dr. Airam Tripathi Basophils/100 WBC (Bld) 0.7 % Normal 0.2-2.0 [facility] Comment on above: Performed By: #### C BC ####[facility] Prsortllhg7648 [place] [address]Dr. Airam Tripathi EO # 0.3 103/ul Normal 0.0-0.7 [facility] Comment on above: Performed By: #### C BC ####[facility] Pgkidwhann5818 [place] [address]Dr. Airam Tripathi Eosinophils/100 WBC (Bld) 3.3 % Normal 0.9-7.0 [facility] Comment on above: Performed By: #### C BC ####[facility] Jidytfeyaf9[address] [place], [place] [address]Dr. Airam Tripathi Erythrocyte distribution width (RBC) [Ratio] 13.2 % Normal 11.0-15.0 [facility] Comment on above: Performed By: #### C BC ####[facility] Pagoswjjzg0669[address] [place], [place] [address]Dr. Selenaneil Tripathi Hematocrit (Bld) [Volume fraction] 32.0 % Critically low 36.0-48.0 [facility] Comment on above: Performed By: #### C BC ####[facility] Djkxtstfht140[address] [place], [place] [address]Dr. Airam Tripathi Hemoglobin (Bld) [Mass/Vol] 10.3 g/dL Critically low 12.0-16.0 [facility] Comment on above: Performed By: #### C BC ####[facility] Ktbtyulpbi4[address] [place], [place] [address]Dr. Airam Tripathi IG # 0.05 10e3/ul Critically high 0.00-0.03 [facility] Comment on above: Performed By: #### C BC ####[facility] Qnrwpivyqf738[address] [place], [place] [address]Dr. Selenaneil Tripathi IG % 0.7 % Critically high 0.0-0.5 [facility] Comment on above: Performed By: #### C BC ####[facility] Rlpdjbyawl[address] [place], [place] [address]Dr. Airam Tripathi LYMPH # 1.7 103/ul Normal 1.2-3.8 [facility] Comment on above: Performed By: #### C BC ####[facility] Aoychcqdcn0813 [place] [phone]. Airam Tripathi Lymphocytes/100 WBC (Bld) 22.6 % Normal 20.5-60.0 [facility] Comment on above: Performed By: #### C BC ####[facility] Qxjrarazfs5026 [place] [address]Dr. Airam Tripathi MANUAL DIFF REQ NO Normal [facility] Comment on above: Performed By: #### C BC ####[facility] Wnqfltqirh0743 [place] [phone]. Airam Tripathi MCH (RBC) [Entitic mass] 30.8 pg Normal 26.7-34.0 [facility] Comment on above: Performed By: #### C BC ####[facility] Tnxswicvqg97[address] [place], [place] [address]Dr. Airam Tripathi MCHC (RBC) [Mass/Vol] 32.2 g/dL Normal 29.9-35.2 [facility] Comment on above: Performed By: #### C BC ####[facility] Blisxmcyec[address] [place], [place] [address]Dr. Airam Tripathi MCV (RBC) [Entitic vol] 95.8 fL Normal 81.0-99.0 [facility] Comment on above: Performed By: #### C BC ####[facility] Yukarzueul7325[address] [place], [place] [address]Dr. Airam Tripathi MONO # 0.6 103/ul Normal 0.3-0.8 [facility] Comment on above: Performed By: #### C BC ####[facility] Efhwhqprna[address] [place], [place] [address]Dr. Airam Tripathi Monocytes/100 WBC (Bld) 8.6 % Normal 1.7-12.0 [facility] Comment on above: Performed By: #### C BC ####[facility] Dozhqnbrfs8[address] [place], [place] [address]Dr. Airam Tripathi NEUT # 4.8 103/ul Normal 1.4-6.5 [facility] Comment on above: Performed By: #### C BC ####[facility] Xjbttovavz3477 [place] [phone]. Selenaneil Deuce Neutrophils/100 WBC (Bld) 64.1 % Normal 43.0-75.0 [facility] Comment on above: Performed By: #### C BC ####[facility] Qlvyavbaja5898 [place] [phone]. Airam Tripathi Platelet mean volume (Bld) [Entitic vol] 10.0 fL Normal 9.5-13.5 [facility] Comment on above: Performed By: #### C BC ####[facility] Bixkacuiop35[address] [place] [address]Dr. Airam Tripathi PLT 322 103/ul Normal 150-450 [facility] Comment on above: Performed By: #### C BC ####[facility] Rbvehirmxs2818 [place] [address]Dr. Airam Tripathi RBC 3.34 106/ul Critically low 4.20-5.40 [facility] Comment on above: Performed By: #### C BC ####[facility] Vjhizeconx2116 [place] [id number]. Airam Tripathi WBC 7.5 103/ul Normal 4.0-11.0 [facility] Comment on above: Performed By: #### C BC ####[facility] Rgvpabgtap1654 [place] [address]DrKianna Tripathi PROF 14(COMP METB)on 022 Albumin [Mass/Vol] 3.5 g/dL Normal 3.4-5.0 [facility] Comment on above: Performed By: #### C MP ####[facility] Wpittbbxvy4815 [place] [address]DrKianna Tripathi Albumin/Globulin [Mass ratio] 1.1 {ratio} Normal [facility] Comment on above: Performed By: #### C MP ####[facility] Gnnxtemzdx7129 [place] [phone] Tripathi ALP [Catalytic activity/Vol] 167 U/L Critically high 46-116 [facility] Comment on above: Performed By: #### C MP ####[facility] Uomztevxwz4545 [place] [phone]. Airam Tripathi ALT [Catalytic activity/Vol] 24 U/L Normal 14-59 [facility] Comment on above: Performed By: #### C MP ####[facility] Ncqsdtdtqz1152 [place] [phone]. Airam Tripathi Anion gap [Moles/Vol] 14.1 mmol/L Normal [facility] Comment on above: Performed By: #### C MP ####[facility] Cnjlefelbj3345 [place] [address]Dr. Airam Tripathi AST [Catalytic activity/Vol] 27 U/L Normal 15-37 [facility] Comment on above: Performed By: #### C MP ####[facility] Lojcjdhwhj[address] [place], [place] [address]Dr. Airam Deuce Bilirubin [Mass/Vol] 0.3 mg/dL Normal 0.2-1.0 [facility] Comment on above: Performed By: #### C MP ####[facility] Oomsfeuntv2959 [place] [address]Dr. Airam Deuce Calcium [Mass/Vol] 8.0 mg/dL Critically low 8.5-10.1 [facility] Comment on above: Performed By: #### C MP ####[facility] Omdcmrrlky[address] [place], [place] [address]Dr. Selenaneli Deuce Chloride [Moles/Vol] 96 mmol/L Critically low 98-107 [facility] Comment on above: Performed By: #### C MP ####[facility] Gnkfgmtowu1959 [place] [phone]. Airam Deuce CO2 [Moles/Vol] 24.6 mmol/L Normal 21.0-32.0 [facility] Comment on above: Performed By: #### C MP ####[facility] Kzlwuyfqlu[address] [place], [place] [address]Dr. Airam Tripathi Creatinine [Mass/Vol] 1.79 mg/dL Critically high 0.55-1.02 [facility] Comment on above: Performed By: #### C MP ####[facility] Zwnlmjgybr8068 [place] [phone]. Airam Tripathi EGFR-AF VENEZUELAN 35 mL/min/1.73m2 Critically low >=60 [facility] Comment on above: Performed By: #### C MP ####[facility] Dejfqqbfwq9499 [place] [phone]. Airam Deuce EGFR-NON AF VENEZUELAN 29 mL/min/1.73m2 Critically low >=60 [facility] Comment on above: Performed By: #### C MP ####[facility] Oixwmelryn5694 [place] [phone]. Airam Deuce Globulin (S) [Mass/Vol] 3.3 g/dL Normal [facility] Comment on above: Performed By: #### C MP ####[facility] Ipqjrvalyy3994 [place] [address]Dr. Airam Tripathi Glucose [Mass/Vol] 58 mg/dL Critically low 74-106 [facility] Comment on above: Performed By: #### C MP ####[facility] Xmtkguaygt4243 [place] [phone]. Airam Deuce Potassium [Moles/Vol] 4.7 mmol/L Normal 3.5-5.1 [facility] Comment on above: Performed By: #### C MP ####[facility] Ayepissrmg2948 [place] [phone]. Airam Tripathi Protein [Mass/Vol] 6.8 g/dL Normal 6.4-8.2 [facility] Comment on above: Performed By: #### C MP ####[facility] Slkqsspzjr5813 [place] [phone]. Selenaneil Tripathi Sodium [Moles/Vol] 130 mmol/L Critically low 136-145 [facility] Comment on above: Performed By: #### C MP ####[facility] Jsyssxlkwa5399 [place] [phone]. Airam Tripathi Urea nitrogen [Mass/Vol] 30.0 mg/dL Critically high 7.0-18.0 [facility] Comment on above: Performed By: #### C MP ####[facility] Ozabngbwjm5864 [place] [address]Dr. Airam Tripathi Urea nitrogen/Creatinine [Mass ratio] 16.8 mg/mg Normal [facility] Comment on above: Performed By: #### C MP ####[facility] Gugachtuuo[address] [place], [place] [address]Dr. Airam Tripathi OSMOLALITYon 05-28-2022 Osmolality [Osmolality] 275 mosm/kg Normal 275-295 [facility] Comment on above: Performed By: #### O SMO ####[facility] Nojohgeaqu022[address] [place], [place] [address]Dr. Airam Deuce CBC AUTO DIFFon 05-26-2022 BASO # 0.0 103/ul Normal 0.0-0.1 [facility] Comment on above: Performed By: #### C BC ####[facility] Ixwinvkqfs713[address] [place], [place] [address]Dr. Airam Deuce Basophils/100 WBC (Bld) 0.4 % Normal 0.2-2.0 [facility] Comment on above: Performed By: #### C BC ####[facility] Kbcezzfbob6[address] [place], [place] [address]Dr. Airam Deuce EO # 0.3 103/ul Normal 0.0-0.7 [facility] Comment on above: Performed By: #### C BC ####[facility] Eubtmsjlsn[address] [place], [place] [address]Dr. Airam Deuce Eosinophils/100 WBC (Bld) 3.2 % Normal 0.9-7.0 [facility] Comment on above: Performed By: #### C BC ####[facility] Jvcafwbpou90[address] [place], [place] [address]DrKianna Airam Tripathi Erythrocyte distribution width (RBC) [Ratio] 13.0 % Normal 11.0-15.0 [facility] Comment on above: Performed By: #### C BC ####[facility] Ucccdnznmb02[address] [place], [place] [address]DrKianna Airam Deuce Hematocrit (Bld) [Volume fraction] 30.4 % Critically low 36.0-48.0 [facility] Comment on above: Performed By: #### C BC ####[facility] Wnxlccmjlx5411 [place] [address]DrKianna Airam Tripathi Hemoglobin (Bld) [Mass/Vol] 9.6 g/dL Critically low 12.0-16.0 [facility] Comment on above: Performed By: #### C BC ####[facility] Skjxuwnsdw1418 [place] [address]DrKianna Waltersneil Tripathi IG # 0.06 10e3/ul Critically high 0.00-0.03 [facility] Comment on above: Performed By: #### C BC ####[facility] Wsoxwpsczh224[address] [place], [place] [address]DrKianna Tripathi IG % 0.7 % Critically high 0.0-0.5 [facility] Comment on above: Performed By: #### C BC ####[facility] Boclwgcpdv85[address] [place], [place] [address]DrKianna Tripathi LYMPH # 1.9 103/ul Normal 1.2-3.8 [facility] Comment on above: Performed By: #### C BC ####[facility] Xxssmuysbg67[address] [place], [place] [address]DrKianna Tripathi Lymphocytes/100 WBC (Bld) 20.6 % Normal 20.5-60.0 [facility] Comment on above: Performed By: #### C BC ####[facility] Iyrlhrqjfw4956 [place] [address]DrKianna Tripathi MANUAL DIFF REQ NO Normal [facility] Comment on above: Performed By: #### C BC ####[facility] Kpsuskdkef2250 [place] [phone] Tripathi MCH (RBC) [Entitic mass] 30.1 pg Normal 26.7-34.0 [facility] Comment on above: Performed By: #### C BC ####[facility] Ujlebqmdjo0455 [place] [address]DrKianna Tripathi MCHC (RBC) [Mass/Vol] 31.6 g/dL Normal 29.9-35.2 [facility] Comment on above: Performed By: #### C BC ####[facility] Wmadbtgoka0545 [place] [address]Dr. Airam Tripathi MCV (RBC) [Entitic vol] 95.3 fL Normal 81.0-99.0 [facility] Comment on above: Performed By: #### C BC ####[facility] Yzdtozdkxf7660 [place] [phone]. Airam Tripathi MONO # 0.6 103/ul Normal 0.3-0.8 [facility] Comment on above: Performed By: #### C BC ####[facility] Uentrskbgu5773 [place] [address]Dr. Selenaneil Tripathi Monocytes/100 WBC (Bld) 6.9 % Normal 1.7-12.0 [facility] Comment on above: Performed By: #### C BC ####[facility] Gkwzcpexfo[address] [place], [place] [address]Dr. Airam Tripathi NEUT # 6.1 103/ul Normal 1.4-6.5 [facility] Comment on above: Performed By: #### C BC ####[facility] Xriggfypop04[address] [place], [place] [address]Dr. Selenaneil Tripathi Neutrophils/100 WBC (Bld) 68.2 % Normal 43.0-75.0 [facility] Comment on above: Performed By: #### C BC ####[facility] Jyjftsmbev25[address] [place], [place] [address]Dr. Airam Deuce Platelet mean volume (Bld) [Entitic vol] 9.7 fL Normal 9.5-13.5 [facility] Comment on above: Performed By: #### C BC ####[facility] Ahmrkbjzkz[address] [place], [place] [address]Dr. Airam Tripathi PLT 317 103/ul Normal 150-450 [facility] Comment on above: Performed By: #### C BC ####[facility] Wjatokpart6527 [place] [phone]. Airam Tripathi RBC 3.19 106/ul Critically low 4.20-5.40 [facility] Comment on above: Performed By: #### C BC ####[facility] Echlrmopvx2786 [place] [address]Dr. Airam Tripathi WBC 9.0 103/ul Normal 4.0-11.0 [facility] Comment on above: Performed By: #### C BC ####[facility] Yjcdpmsaje2840 [place] [address]Dr. Airam Tripathi PROF 14(COMP METB)on 022 Albumin [Mass/Vol] 3.4 g/dL Normal 3.4-5.0 [facility] Comment on above: Performed By: #### C MP ####[facility] Tcjdccstpc6462 [place] [address]Dr. Airam Tripathi Albumin/Globulin [Mass ratio] 1.0 {ratio} Normal [facility] Comment on above: Performed By: #### C MP ####[facility] Abxiiixnsq[address] [place], [place] [address]Dr. Airam Tripathi ALP [Catalytic activity/Vol] 153 U/L Critically high 46-116 [facility] Comment on above: Performed By: #### C MP ####[facility] Wofoucmmwn673[address] [place], [place] [address]Dr. Airam Tripathi ALT [Catalytic activity/Vol] 21 U/L Normal 14-59 [facility] Comment on above: Performed By: #### C MP ####[facility] Zewsgprocq5834 [place] [address]Dr. Airam Tripathi Anion gap [Moles/Vol] 13.6 mmol/L Normal Th e [facility] Comment on above: Performed By: #### C MP ####[facility] Dxbonpeizz0026 [place] [address]Dr. Airam Tripathi AST [Catalytic activity/Vol] 23 U/L Normal 15-37 [facility] Comment on above: Performed By: #### C MP ####[facility] Hkaqtsnqiu5011 [place] [address]Dr. Airam Tripathi Bilirubin [Mass/Vol] 0.2 mg/dL Normal 0.2-1.0 [facility] Comment on above: Performed By: #### C MP ####[facility] Cmpmurhfmz3065 [place] [phone]. Airam Tripathi Calcium [Mass/Vol] 8.4 mg/dL Critically low 8.5-10.1 Th [facility] Comment on above: Performed By: #### C MP ####[facility] Srwoqimlii8554 [place] [phone]. Airam Deuce Chloride [Moles/Vol] 97 mmol/L Critically low 98-107 [facility] Comment on above: Performed By: #### C MP ####[facility] Fmqejtvfai2131 [place] [address]Dr. Airam Tripathi CO2 [Moles/Vol] 25.2 mmol/L Normal 21.0-32.0 [facility] Comment on above: Performed By: #### C MP ####[facility] Ghksxgzuck[address] [place], [place] [address]Dr. Airam Deuce Creatinine [Mass/Vol] 1.58 mg/dL Critically high 0.55-1.02 [facility] Comment on above: Performed By: #### C MP ####[facility] Wntkmdnmct[address] [place], [place] [address]Dr. Airam Deuce EGFR-AF VENEZUELAN 40 mL/min/1.73m2 Critically low >=60 [facility] Comment on above: Performed By: #### C MP ####[facility] Sbqfjlsqgf[address] [place], [place] [address]Dr. Airam Deuce EGFR-NON AF VENEZUELAN 33 mL/min/1.73m2 Critically low >=60 [facility] Comment on above: Performed By: #### C MP ####[facility] Qlpabsaimn[address]25[address] [place], [place] [address]Dr. Airam Tripathi Globulin (S) [Mass/Vol] 3.4 g/dL Normal [facility] Comment on above: Performed By: #### C MP ####[facility] Fecdttlsrf5912 [place] [address]Dr. Airam Tripathi Glucose [Mass/Vol] 74 mg/dL Normal 74-106 [facility] Comment on above: Performed By: #### C MP ####[facility] [facility] [address] [place] [address]Dr. Airam Deuce Potassium [Moles/Vol] 4.8 mmol/L Normal 3.5-5.1 [facility] Comment on above: Performed By: #### C MP ####[facility] [address] [place] [address]Dr. Airam Deuce Protein [Mass/Vol] 6.8 g/dL Normal 6.4-8.2 [facility] Comment on above: Performed By: #### C MP ####[facility] Ihrkungmia[address] [place], [place] [address]Dr. Airam Deuce Sodium [Moles/Vol] 131 mmol/L Critically low 136-145 Th [facility] Comment on above: Performed By: #### C MP ####[facility] Nvdtvgchuz[address] [place], [place] [address]Dr. Airam Tripathi Urea nitrogen [Mass/Vol] 31.0 mg/dL Critically high 7.0-18.0 [facility] Comment on above: Performed By: #### C MP ####[facility] Dbzxtyngtp32[address] [place], [place] [address]Dr. Selenaneil Tripathi Urea nitrogen/Creatinine [Mass ratio] 19.6 mg/mg Normal [facility] Comment on above: Performed By: #### C MP ####[facility] Fpoazpbblp[address] [place], [place] [address]Dr. Airam Tripathi OSMOLALITYon 05-19-2022 Osmolality [Osmolality] 281 mosm/kg Normal 275-295 [facility] Comment on above: Performed By: #### O SMO ####[facility] Rfyczpbxwx[address] [place], [place] [address]DrKianna Airam Deuce CBC AUTO DIFFon 05-17-2022 BASO # 0.1 103/ul Normal 0.0-0.1 [facility] Comment on above: Performed By: #### C BC ####[facility] Efsmzgkyzw[address] [place], [place] [address]Dr. Airam Tripathi Basophils/100 WBC (Bld) 0.6 % Normal 0.2-2.0 [facility] Comment on above: Performed By: #### C BC ####[facility] Roriuvvaoi[address] [place], [place] [address]DrKianna Tripathi EO # 0.2 103/ul Normal 0.0-0.7 [facility] Comment on above: Performed By: #### C BC ####[facility] Qxipfkeajj[address] [place], [place] [address]DrKianna Tripathi Eosinophils/100 WBC (Bld) 1.9 % Normal 0.9-7.0 [facility] Comment on above: Performed By: #### C BC ####[facility] Zyleuczyqn9[address] [place], [place] [address]DrKianna Tripathi Erythrocyte distribution width (RBC) [Ratio] 12.9 % Normal 11.0-15.0 [facility] Comment on above: Performed By: #### C BC ####[facility] Wssfyeoegz[address] [place], [place] [address]DrKianna Tripathi Hematocrit (Bld) [Volume fraction] 32.1 % Critically low 36.0-48.0 [facility] Comment on above: Performed By: #### C BC ####[facility] Ayjamolyjr[address] [place], [place] [address]DrKianna Tripathi Hemoglobin (Bld) [Mass/Vol] 9.9 g/dL Critically low 12.0-16.0 [facility] Comment on above: Performed By: #### C BC ####[facility] Fkjmlgzpwv7[address] [place], [place] [address]DrKianna Tripathi IG # 0.05 10e3/ul Critically high 0.00-0.03 [facility] Comment on above: Performed By: #### C BC ####[facility] Ffcunrnnqo3258[address] [place], [place] [address]DrKianna Tripathi IG % 0.6 % Critically high 0.0-0.5 [facility] Comment on above: Performed By: #### C BC ####[facility] Ilhtntvdml2901[address] [place], [place] [address]DrKianna Tripathi LYMPH # 1.3 103/ul Normal 1.2-3.8 [facility] Comment on above: Performed By: #### C BC ####[facility] [address] [place] [address]Dr. Airam Tripathi Lymphocytes/100 WBC (Bld) 15.2 % Critically low 20.5-60.0 [facility] Comment on above: Performed By: #### C BC ####[facility] Yzcwpjplcx6[address] [place], [place] [address]Dr. Airam Tripathi MANUAL DIFF REQ NO Normal [facility] Comment on above: Performed By: #### C BC ####[facility] Hpnhszgyrc060[address] [place], [place] [address]Dr. Airam Tripathi MCH (RBC) [Entitic mass] 30.0 pg Normal 26.7-34.0 [facility] Comment on above: Performed By: #### C BC ####[facility] Lrcziwzubk32[address] [place], [place] [address]Dr. Airam Tripathi MCHC (RBC) [Mass/Vol] 30.8 g/dL Normal 29.9-35.2 [facility] Comment on above: Performed By: #### C BC ####[facility] Evzzukhxwv4347[address] [place], [place] [address]Dr. Airam Tripathi MCV (RBC) [Entitic vol] 97.3 fL Normal 81.0-99.0 [facility] Comment on above: Performed By: #### C BC ####[facility] Ssbchhjfuj59[address] [place], [place] [address]Dr. Airam Tripathi MONO # 0.5 103/ul Normal 0.3-0.8 [facility] Comment on above: Performed By: #### C BC ####[facility] Uemylbcfeu3959[address] [place], [place] [address]Dr. Airam Tripathi Monocytes/100 WBC (Bld) 5.4 % Normal 1.7-12.0 [facility] Comment on above: Performed By: #### C BC ####[facility] Zmfveqbacl0906[address] [place], [place] [address]Dr. Airam Tripathi NEUT # 6.5 103/ul Normal 1.4-6.5 [facility] Comment on above: Performed By: #### C BC ####[facility] [address] [place] [address]DrKianna Tripathi Neutrophils/100 WBC (Bld) 76.3 % Critically high 43.0-75.0 [facility] Comment on above: Performed By: #### C BC ####[facility] [address]wgs[address] [place] [address]DrKianna Tripathi Platelet mean volume (Bld) [Entitic vol] 10.1 fL Normal 9.5-13.5 [facility] Comment on above: Performed By: #### C BC ####[facility] Pfwtposbpf9027[address] [place], [place] [address]DrKianna Tripathi PLT 284 103/ul Normal 150-450 [facility] Comment on above: Performed By: #### C BC ####[facility] Rspjahenup49[address] [place], [place] [address]DrKianna Tripathi RBC 3.30 106/ul Critically low 4.20-5.40 [facility] Comment on above: Performed By: #### C BC ####[facility] Hfanqbvmiq03[address] [place], [place] [address]DrKianna Tripathi WBC 8.5 103/ul Normal 4.0-11.0 [facility] Comment on above: Performed By: #### C BC ####[facility] Idvutvmxpd[address] [place], [place] [address]DrKianna Tripathi PROF 14(COMP METB)on 022 Albumin [Mass/Vol] 3.1 g/dL Critically low 3.4-5.0 [facility] Comment on above: Performed By: #### C MP ####[facility] Hiyqovshbs13[address] [place], [place] [address]DrKianna Tripathi Albumin/Globulin [Mass ratio] 0.9 {ratio} Normal [facility] Comment on above: Performed By: #### C MP ####[facility] Ccwnydtwzg[address] [place], [place] [address]DrKianna Tripathi ALP [Catalytic activity/Vol] 162 U/L Critically high 46-116 [facility] Comment on above: Performed By: #### C MP ####[facility] [address] [place] [address]Dr. Airam Tripathi ALT [Catalytic activity/Vol] 22 U/L Normal 14-59 [facility] Comment on above: Performed By: #### C MP ####[facility] Dfaovxgbdk5186[address] [place], [place] [address]Dr. Airam Tripathi Anion gap [Moles/Vol] 9.4 mmol/L Normal [facility] Comment on above: Performed By: #### C MP ####[facility] Nggsjadrii228[address] [place], [place] [address]Dr. Airam Tripathi AST [Catalytic activity/Vol] 26 U/L Normal 15-37 [facility] Comment on above: Performed By: #### C MP ####[facility] Svtquopesu1439[address] [place], [place] [address]Dr. Airam Tripathi Bilirubin [Mass/Vol] 0.2 mg/dL Normal 0.2-1.0 [facility] Comment on above: Performed By: #### C MP ####[facility] Asxgrzpxwe6406[address] [place], [place] [address]Dr. Airam Tripathi Calcium [Mass/Vol] 8.2 mg/dL Critically low 8.5-10.1 [facility] Comment on above: Performed By: #### C MP ####[facility] Zzcjnebrsg[address] [place], [place] [address]Dr. Airam Tripathi Chloride [Moles/Vol] 103 mmol/L Normal 98-107 [facility] Comment on above: Performed By: #### C MP ####[facility] Gliipkolih3555[address] [place], [place] [address]Dr. Airam Tripathi CO2 [Moles/Vol] 24.8 mmol/L Normal 21.0-32.0 [facility] Comment on above: Performed By: #### C MP ####[facility] Clyfenfvcy8075[address] [place], [place] [address]Dr. Airam Deuce Creatinine [Mass/Vol] 1.19 mg/dL Critically high 0.55-1.02 [facility] Comment on above: Performed By: #### C MP ####[facility] [address] [place] [address]Dr. Airam Tripathi EGFR-AF VENEZUELAN 56 mL/min/1.73m2 Critically low >=60 [facility] Comment on above: Performed By: #### C MP ####[facility] Hierijevgm[address] [place] [address]Dr. Airam Tripathi EGFR-NON AF VENEZUELAN 46 mL/min/1.73m2 Critically low >=60 [facility] Comment on above: Performed By: #### C MP ####[facility] Kgekkvtuqe9380[address] [place], [place] [address]Dr. Airam Tripathi Globulin (S) [Mass/Vol] 3.6 g/dL Normal [facility] Comment on above: Performed By: #### C MP ####[facility] Gxkfjsednc4185[address] [place], [place] [address]Dr. Airam Tripathi Glucose [Mass/Vol] 75 mg/dL Normal 74-106 [facility] Comment on above: Performed By: #### C MP ####[facility] Flfbmyjahm7825[address] [place], [place] [address]Dr. Airam Tripathi Potassium [Moles/Vol] 5.2 mmol/L Critically high 3.5-5.1 [facility] Comment on above: Performed By: #### C MP ####[facility] Yreauylojf8126[address] [place], [place] [address]Dr. Airam Tripathi Protein [Mass/Vol] 6.7 g/dL Normal 6.4-8.2 [facility] Comment on above: Performed By: #### C MP ####[facility] Tqjolljgxu0212[address] [place], [place] [address]Dr. Airam Tripathi Sodium [Moles/Vol] 132 mmol/L Critically low 136-145 Th [facility] Comment on above: Performed By: #### C MP ####[facility] Uqumdsknur7355[address] [place], [place] [address]Dr. Airam Tripathi Urea nitrogen [Mass/Vol] 28.0 mg/dL Critically high 7.0-18.0 [facility] Comment on above: Performed By: #### C MP ####[facility] Jeyphvzyxe9248[address] [place], [place] [address]DrKianna Tripathi Urea nitrogen/Creatinine [Mass ratio] 23.5 mg/mg Normal [facility] Comment on above: Performed By: #### C MP ####[facility] Wkijpssjyg[address]23[address] [place], [place] [address]DrKianna Tripathi OSMOLALITYon 05-16-2022 Osmolality [Osmolality] 281 mosm/kg Normal 275-295 [facility] Comment on above: Performed By: #### O SMO ####[facility] Gzvvvrzewu9024[address] [place], [place] [address]DrKianna Tripathi CBC AUTO DIFFon 05-13-2022 BASO # 0.1 103/ul Normal 0.0-0.1 [facility] Comment on above: Performed By: #### C BC ####[facility] Kxpidlwtmb0157[address] [place], [place] [address]DrKianna Tripathi Basophils/100 WBC (Bld) 0.5 % Normal 0.2-2.0 [facility] Comment on above: Performed By: #### C BC ####[facility] Qizgqzvtov5527[address] [place], [place] [address]DrKianna Tripathi EO # 0.2 103/ul Normal 0.0-0.7 [facility] Comment on above: Performed By: #### C BC ####[facility] Bdeiszrqem9410[address] [place], [place] [address]DrKianna Tripathi Eosinophils/100 WBC (Bld) 2.1 % Normal 0.9-7.0 [facility] Comment on above: Performed By: #### C BC ####[facility] Obyaumvydw[address]57[address] [place], [place] [address]DrKianna Tripathi Erythrocyte distribution width (RBC) [Ratio] 12.9 % Normal 11.0-15.0 [facility] Comment on above: Performed By: #### C BC ####[facility] Xbkzdtqhlc[address] [place], [place] [address]DrKianna Tripathi Hematocrit (Bld) [Volume fraction] 31.9 % Critically low 36.0-48.0 [facility] Comment on above: Performed By: #### C BC ####[facility] Bwfbqrnmmi[address] [place] [address]DrKianna Selenaneil Tripathi Hemoglobin (Bld) [Mass/Vol] 9.7 g/dL Critically low 12.0-16.0 [facility] Comment on above: Performed By: #### C BC ####[facility] Pssvanldfq[address] [place], [place] [address]DrKianna Tripathi IG # 0.06 10e3/ul Critically high 0.00-0.03 [facility] Comment on above: Performed By: #### C BC ####[facility] Wmorisrgfm5335[address] [place], [place] [address]DrKianna Tripathi IG % 0.7 % Critically high 0.0-0.5 [facility] Comment on above: Performed By: #### C BC ####[facility] Fayfayuhty8912[address] [place], [place] [address]DrKianna Tripathi LYMPH # 1.9 103/ul Normal 1.2-3.8 [facility] Comment on above: Performed By: #### C BC ####[facility] Hudgrprjen1247[address] [place], [place] [address]DrKianna Tripathi Lymphocytes/100 WBC (Bld) 21.1 % Normal 20.5-60.0 [facility] Comment on above: Performed By: #### C BC ####[facility] Bbeuwrcryc[address] [place], [place] [address]DrKianna Tripathi MANUAL DIFF REQ NO Normal [facility] Comment on above: Performed By: #### C BC ####[facility] Axeqyvetzj807[address] [place], [place] [address]DrKianna Tripathi MCH (RBC) [Entitic mass] 29.7 pg Normal 26.7-34.0 [facility] Comment on above: Performed By: #### C BC ####[facility] Itpuydxiyl300[address] [place], [place] [address]DrKianna Tripathi MCHC (RBC) [Mass/Vol] 30.4 g/dL Normal 29.9-35.2 [facility] Comment on above: Performed By: #### C BC ####[facility] [address]lfqvu[address] [place] [address]DrKianna Airam Deuce MCV (RBC) [Entitic vol] 97.6 fL Normal 81.0-99.0 [facility] Comment on above: Performed By: #### C BC ####[facility] Yqnzmetvez5845[address] [place], [place] [address]DrKianna Tripathi MONO # 0.6 103/ul Normal 0.3-0.8 [facility] Comment on above: Performed By: #### C BC ####[facility] Sqvttojskl236[address] [place], [place] [address]DrKianna Tripathi Monocytes/100 WBC (Bld) 6.8 % Normal 1.7-12.0 [facility] Comment on above: Performed By: #### C BC ####[facility] Aythqbepqy245[address] [place], [place] [address]DrKianna Tripathi NEUT # 6.3 103/ul Normal 1.4-6.5 [facility] Comment on above: Performed By: #### C BC ####[facility] Gfduxlzvha028[address] [place], [place] [address]DrKianna Tripathi Neutrophils/100 WBC (Bld) 68.8 % Normal 43.0-75.0 [facility] Comment on above: Performed By: #### C BC ####[facility] Pppbrngepi2150[address] [place], [place] [address]DrKianna Tripathi Platelet mean volume (Bld) [Entitic vol] 9.6 fL Normal 9.5-13.5 [facility] Comment on above: Performed By: #### C BC ####[facility] Gyqzqzrham[address] [place], [place] [address]DrKianna Tripathi PLT 295 103/ul Normal 150-450 [facility] Comment on above: Performed By: #### C BC ####[facility] Llotqsvpys1613[address] [place], [place] [address]Dr. Airam Tripathi RBC 3.27 106/ul Critically low 4.20-5.40 [facility] Comment on above: Performed By: #### C BC ####[facility] Efxkutxytf7718[address] [place], [place] [address]Dr. Airam Tripathi WBC 9.1 103/ul Normal 4.0-11.0 [facility] Comment on above: Performed By: #### C BC ####[facility] Zkcboeacgf4048[address] [place], [place] [address]Dr. Airam Tripathi PROF 14(COMP METB)on 022 Albumin [Mass/Vol] 3.3 g/dL Critically low 3.4-5.0 [facility] Comment on above: Performed By: #### C MP ####[facility] Canzvagdti2725[address] [place], [place] [address]Dr. Airam Tripathi Albumin/Globulin [Mass ratio] 1.0 {ratio} Normal [facility] Comment on above: Performed By: #### C MP ####[facility] Ehsxtftzbo9774[address] [place], [place] [address]Dr. Airam Tripathi ALP [Catalytic activity/Vol] 152 U/L Critically high 46-116 [facility] Comment on above: Performed By: #### C MP ####[facility] Kulaokwtxy298[address] [place], [place] [address]Dr. Airam Tripathi ALT [Catalytic activity/Vol] 23 U/L Normal 14-59 [facility] Comment on above: Performed By: #### C MP ####[facility] Kydlfgshwr[address] [place], [place] [address]Dr. Airam Tripathi Anion gap [Moles/Vol] 12.0 mmol/L Normal [facility] Comment on above: Performed By: #### C MP ####[facility] Szbvqbmmuf5609[address] [place], [place] [address]Dr. Airam Tripathi AST [Catalytic activity/Vol] 25 U/L Normal 15-37 [facility] Comment on above: Performed By: #### C MP ####[facility] Abnlcwjqyk0380[address] [place], [place] [address]Dr. Airam Tripathi Bilirubin [Mass/Vol] 0.2 mg/dL Normal 0.2-1.0 [facility] Comment on above: Performed By: #### C MP ####[facility] Dvosbiyokl2559[address] [place], [place] [address]Dr. Airam Tripathi Calcium [Mass/Vol] 8.2 mg/dL Critically low 8.5-10.1 Th e [facility] Comment on above: Performed By: #### C MP ####[facility] Uasrjoaxqe875[address] [place], [place] [address]Dr. Airam Tripathi Chloride [Moles/Vol] 100 mmol/L Normal 98-107 [facility] Comment on above: Performed By: #### C MP ####[facility] Ygqrdecokj6757[address] [place], [place] [address]Dr. Airam Tripathi CO2 [Moles/Vol] 24.8 mmol/L Normal 21.0-32.0 [facility] Comment on above: Performed By: #### C MP ####[facility] Ebqqzdpdzy7118[address] [place], [place] [address]Dr. Airam Tripathi Creatinine [Mass/Vol] 1.46 mg/dL Critically high 0.55-1.02 [facility] Comment on above: Performed By: #### C MP ####[facility] Uggebfsjpm117[address] [place], [place] [address]Dr. Airam Tripathi EGFR-AF VENEZUELAN 44 mL/min/1.73m2 Critically low >=60 [facility] Comment on above: Performed By: #### C MP ####[facility] Bxvqhcfutj6238[address] [place], [place] [address]Dr. Airam Tripathi EGFR-NON AF VENEZUELAN 37 mL/min/1.73m2 Critically low >=60 [facility] Comment on above: Performed By: #### C MP ####[facility] Qmcqmceurg3917[address] [place], [place] [address]Dr. Airam Tripathi Globulin (S) [Mass/Vol] 3.3 g/dL Normal [facility] Comment on above: Performed By: #### C MP ####[facility] Jjtuhxlrkd2532[address] [place], [place] [address]Dr. Airam Tripathi Glucose [Mass/Vol] 86 mg/dL Normal 74-106 [facility] Comment on above: Performed By: #### C MP ####[facility] [address]copn[address] [place] [address]Dr. Airam Tripathi Potassium [Moles/Vol] 4.8 mmol/L Normal 3.5-5.1 [facility] Comment on above: Performed By: #### C MP ####[facility] Qaboktkeeb7468[address] [place], [place] [address]Dr. Airam Tripathi Protein [Mass/Vol] 6.6 g/dL Normal 6.4-8.2 [facility] Comment on above: Performed By: #### C MP ####[facility] Oduqltqzmo5128[address] [place], [place] [address]Dr. Airam Tripathi Sodium [Moles/Vol] 132 mmol/L Critically low 136-145 Th [facility] Comment on above: Performed By: #### C MP ####[facility] Qxubngbjvd9329[address] [place], [place] [address]Dr. Airam Deuce Urea nitrogen [Mass/Vol] 34.0 mg/dL Critically high 7.0-18.0 [facility] Comment on above: Performed By: #### C MP ####[facility] Sokpezmzne[address] [place], [place] [address]Dr. Airam Tripathi Urea nitrogen/Creatinine [Mass ratio] 23.3 mg/mg Normal [facility] Comment on above: Performed By: #### C MP ####[facility] Uvruupbyki7[address] [place], [place] [address]Dr. Selenaneil Deuce OSMOLALITYon 05-06-2022 Osmolality [Osmolality] 284 mosm/kg Normal 275-295 [facility] Comment on above: Performed By: #### O SMO ####[facility] Iekmddcffs[address] [place], [place] [address]Dr. Selenaneil Deuce XR LSPINE MIN 4 VIEWSon 11-0 XR LSPINE MIN 4 VIEWS Normal [facility] CBC AUTO DIFFon 05-03-2022 BASO # 0.1 103/ul Normal 0.0-0.1 [facility] Comment on above: Performed By: #### C BC ####[facility] [address]ns[address] [place] [id number]. Airam Tripathi Basophils/100 WBC (Bld) 0.6 % Normal 0.2-2.0 [facility] Comment on above: Performed By: #### C BC ####[facility] Vefqovxhoa[address] [place], [place] [id number]. Airam Tripathi EO # 0.3 103/ul Normal 0.0-0.7 [facility] Comment on above: Performed By: #### C BC ####[facility] Typhjkrjnz7498[address] [place], [place] [address]Dr. Airam Tripathi Eosinophils/100 WBC (Bld) 4.2 % Normal 0.9-7.0 [facility] Comment on above: Performed By: #### C BC ####[facility] Huzlvhigwy9718[address] [place], [place] [address]Dr. Airam Tripathi Erythrocyte distribution width (RBC) [Ratio] 13.4 % Normal 11.0-15.0 [facility] Comment on above: Performed By: #### C BC ####[facility] Zzjhvnnamj[address] [place], [place] [address]Dr. Airam Tripathi Hematocrit (Bld) [Volume fraction] 30.7 % Critically low 36.0-48.0 [facility] Comment on above: Performed By: #### C BC ####[facility] Ldfcohcgol6064[address] [place], [place] [address]Dr. Airam Tripathi Hemoglobin (Bld) [Mass/Vol] 9.6 g/dL Critically low 12.0-16.0 [facility] Comment on above: Performed By: #### C BC ####[facility] Wnzomyyxxi[address] [place], [place] [address]Dr. Airam Tripathi IG # 0.05 10e3/ul Critically high 0.00-0.03 [facility] Comment on above: Performed By: #### C BC ####[facility] [address]riwilzpph23[address] [place], [place] [address]Dr. Airam Tripathi IG % 0.6 % Critically high 0.0-0.5 [facility] Comment on above: Performed By: #### C BC ####[facility] Ltvdrnobnu[address] [place] [id number]. Airam Tripathi LYMPH # 1.9 103/ul Normal 1.2-3.8 [facility] Comment on above: Performed By: #### C BC ####[facility] Hejvcwopvd60[address] [place] [id number]. Airam Tripathi Lymphocytes/100 WBC (Bld) 23.5 % Normal 20.5-60.0 [facility] Comment on above: Performed By: #### C BC ####[facility] Bbzjqhxzrq[address] [place], [place] [address]Dr. Airam Tripathi MANUAL DIFF REQ NO Normal [facility] Comment on above: Performed By: #### C BC ####[facility] Jvidshbtlq413[address] [place], [place] [address]Dr. Airam Tripathi MCH (RBC) [Entitic mass] 30.8 pg Normal 26.7-34.0 [facility] Comment on above: Performed By: #### C BC ####[facility] Voiyvekzsu[address] [place], [place] [address]Dr. Airam Tripathi MCHC (RBC) [Mass/Vol] 31.3 g/dL Normal 29.9-35.2 [facility] Comment on above: Performed By: #### C BC ####[facility] Royhmahgop[address] [place], [place] [address]Dr. Airam Tripathi MCV (RBC) [Entitic vol] 98.4 fL Normal 81.0-99.0 [facility] Comment on above: Performed By: #### C BC ####[facility] Dvqhctzose[address] [place], [place] [address]Dr. Airam Tripathi MONO # 0.6 103/ul Normal 0.3-0.8 [facility] Comment on above: Performed By: #### C BC ####[facility] Jbsvuwhmaq[address] [place], [place] [id number]. Airam Tripathi Monocytes/100 WBC (Bld) 7.4 % Normal 1.7-12.0 [facility] Comment on above: Performed By: #### C BC ####[facility] Nkpwyvjaqh56[address] [place] [id number]. Airam Tripathi NEUT # 5.0 103/ul Normal 1.4-6.5 [facility] Comment on above: Performed By: #### C BC ####[facility] Fqlgcgynwt4[address] [place] [id number]. Airam Tripathi Neutrophils/100 WBC (Bld) 63.7 % Normal 43.0-75.0 [facility] Comment on above: Performed By: #### C BC ####[facility] [address]wuacpd[address] [place] [address]Dr. Airam Tripathi Platelet mean volume (Bld) [Entitic vol] 9.5 fL Normal 9.5-13.5 [facility] Comment on above: Performed By: #### C BC ####[facility] Rgyihfbbck[address] [place], [place] [address]Dr. Airam Tripathi PLT 280 103/ul Normal 150-450 [facility] Comment on above: Performed By: #### C BC ####[facility] Tzllqoipmq[address] [place] [address]Dr. Airam Tripathi RBC 3.12 106/ul Critically low 4.20-5.40 [facility] Comment on above: Performed By: #### C BC ####[facility] Qzkspqktpr[address] [place] [address]Dr. Airam Tripathi WBC 7.9 103/ul Normal 4.0-11.0 [facility] Comment on above: Performed By: #### C BC ####[facility] Voupnzdrnk[address] [place] [address]Dr. Airam Tripathi PROF 14(COMP METB)on 022 Albumin [Mass/Vol] 3.1 g/dL Critically low 3.4-5.0 [facility] Comment on above: Performed By: #### C MP ####[facility] Gmrbcaiula[address] [place] [address]Dr. Airam Tripathi Albumin/Globulin [Mass ratio] 0.9 {ratio} Normal [facility] Comment on above: Performed By: #### C MP ####[facility] Lktvmtjprh35[address] [place] [address]Dr. Airam Tripathi ALP [Catalytic activity/Vol] 140 U/L Critically high 46-116 [facility] Comment on above: Performed By: #### C MP ####[facility] Lhayxozftt[address] [place] [address]Dr. Airam Tripathi ALT [Catalytic activity/Vol] 24 U/L Normal 14-59 [facility] Comment on above: Performed By: #### C MP ####[facility] Keimthusmq25[address] [place] [address]Dr. Airam Tripathi Anion gap [Moles/Vol] 11.2 mmol/L Normal [facility] Comment on above: Performed By: #### C MP ####[facility] Hkwddrszve5[address] [place], [place] [address]Dr. Airam Tripathi AST [Catalytic activity/Vol] 26 U/L Normal 15-37 [facility] Comment on above: Performed By: #### C MP ####[facility] Kzytorzpzl[address] [place], [place] [address]Dr. Airam Tripathi Bilirubin [Mass/Vol] 0.2 mg/dL Normal 0.2-1.0 [facility] Comment on above: Performed By: #### C MP ####[facility] Kutrnpzbxu89[address] [place], [place] [address]Dr. Airam Tripathi Calcium [Mass/Vol] 8.3 mg/dL Critically low 8.5-10.1 [facility] Comment on above: Performed By: #### C MP ####[facility] Fareviilnv5059[address] [place], [place] [address]Dr. Airam Tripathi Chloride [Moles/Vol] 101 mmol/L Normal 98-107 [facility] Comment on above: Performed By: #### C MP ####[facility] Lelpcdxejj6028[address] [place], [place] [address]Dr. Airam Tripathi CO2 [Moles/Vol] 25.5 mmol/L Normal 21.0-32.0 [facility] Comment on above: Performed By: #### C MP ####[facility] Gtyhviobdm[address] [place] [address]Dr. Airam Tripathi Creatinine [Mass/Vol] 1.43 mg/dL Critically high 0.55-1.02 [facility] Comment on above: Performed By: #### C MP ####[facility] Svjecuszsg[address] [place] [address]Dr. Airam Tripathi EGFR-AF VENEZUELAN 45 mL/min/1.73m2 Critically low >=60 [facility] Comment on above: Performed By: #### C MP ####[facility] Swzeqnynto[address] [place] [address]Dr. Airam Tripathi EGFR-NON AF VENEZUELAN 37 mL/min/1.73m2 Critically low >=60 [facility] Comment on above: Performed By: #### C MP ####[facility] Fffldknymi[address] [place], [place] [address]Dr. Airam Deuce Globulin (S) [Mass/Vol] 3.3 g/dL Normal [facility] Comment on above: Performed By: #### C MP ####[facility] Ijnrruqpnb[address] [place] [address]Dr. Airam Tripathi Glucose [Mass/Vol] 74 mg/dL Normal 74-106 [facility] Comment on above: Performed By: #### C MP ####[facility] Gmcerumzra35[address] [place], [place] [address]Dr. Airam Tripathi Potassium [Moles/Vol] 4.7 mmol/L Normal 3.5-5.1 [facility] Comment on above: Performed By: #### C MP ####[facility] Cmvtkldvfx[address] [place], [place] [address]Dr. Airam Tripathi Protein [Mass/Vol] 6.4 g/dL Normal 6.4-8.2 [facility] Comment on above: Performed By: #### C MP ####[facility] Gixiuxzgas2414[address] [place], [place] [address]Dr. Airam Tripathi Sodium [Moles/Vol] 133 mmol/L Critically low 136-145 Th [facility] Comment on above: Performed By: #### C MP ####[facility] Kwjmqyhxpd55[address] [place] [phone]. Airam Tripathi Urea nitrogen [Mass/Vol] 38.0 mg/dL Critically high 7.0-18.0 [facility] Comment on above: Performed By: #### C MP ####[facility] Vnfysfcpsf0676[address] [place], [place] [address]Dr. Airam Tripathi Urea nitrogen/Creatinine [Mass ratio] 26.6 mg/mg Normal [facility] Comment on above: Performed By: #### C MP ####[facility] Adiuosauam264[address] [place], [place] [address]Dr. Airam Tripathi OSMOLALITYon 04-29-2022 Osmolality [Osmolality] 292 mosm/kg Normal 275-295 [facility] Comment on above: Performed By: #### O SMO ####[facility] Pltnqabqas[address] [place], [place] [address]Dr. Airam Tripathi CBC AUTO DIFFon 04-28-2022 BASO # 0.0 103/ul Normal 0.0-0.1 [facility] Comment on above: Performed By: #### C BC ####[facility] Pbbdppwbke[address] [place], [place] [address]Dr. Airam Tripathi Basophils/100 WBC (Bld) 0.5 % Normal 0.2-2.0 [facility] Comment on above: Performed By: #### C BC ####[facility] Qfubpfvnwy350[address] [place], [place] [address]Dr. Airam Tripathi EO # 0.2 103/ul Normal 0.0-0.7 [facility] Comment on above: Performed By: #### C BC ####[facility] Wvtxrkbafr9[address] [place], [place] [address]Dr. Airam Tripathi Eosinophils/100 WBC (Bld) 3.4 % Normal 0.9-7.0 [facility] Comment on above: Performed By: #### C BC ####[facility] Jmymcquybo[address] [place], [place] [address]Dr. Airam Tripathi Erythrocyte distribution width (RBC) [Ratio] 13.4 % Normal 11.0-15.0 [facility] Comment on above: Performed By: #### C BC ####[facility] Bonxlqtmml[address] [place] [address]Dr. Airam Tripathi Hematocrit (Bld) [Volume fraction] 31.6 % Critically low 36.0-48.0 [facility] Comment on above: Performed By: #### C BC ####[facility] Pyiyiagdqs38[address] [place] [address]DrKianna Aiarm Deuce Hemoglobin (Bld) [Mass/Vol] 9.8 g/dL Critically low 12.0-16.0 [facility] Comment on above: Performed By: #### C BC ####[facility] Gdwkfdokrb23[address] [place], [place] [address]Dr. Airam Tripathi IG # 0.02 10e3/ul Normal 0.00-0.03 [facility] Comment on above: Performed By: #### C BC ####[facility] Aazyaxorlf9539[address] [place], [place] [address]Dr. Airam Tripathi IG % 0.3 % Normal 0.0-0.5 [facility] Comment on above: Performed By: #### C BC ####[facility] Ycmjgpawqk6[address] [place], [place] [address]DrKianna Selenaneil Tripathi LYMPH # 1.3 103/ul Normal 1.2-3.8 [facility] Comment on above: Performed By: #### C BC ####[facility] Jbnnotmwni2265[address] [place], [place] [address]DrKianna Tripathi Lymphocytes/100 WBC (Bld) 21.7 % Normal 20.5-60.0 [facility] Comment on above: Performed By: #### C BC ####[facility] Gxpdkzaaxy3457[address] [place], [place] [address]DrKianna Selenaneil Tripathi MANUAL DIFF REQ NO Normal [facility] Comment on above: Performed By: #### C BC ####[facility] Lmiwvlltwb[address] [place], [place] [address]DrKianna Tripathi MCH (RBC) [Entitic mass] 30.7 pg Normal 26.7-34.0 [facility] Comment on above: Performed By: #### C BC ####[facility] Vzptgrnrql18[address] [place] [phone]. Airam Deuce MCHC (RBC) [Mass/Vol] 31.0 g/dL Normal 29.9-35.2 [facility] Comment on above: Performed By: #### C BC ####[facility] Wfyqfiskdr5285 [place] [id number] Tripathi MCV (RBC) [Entitic vol] 99.1 fL Critically high 81.0-99.0 [facility] Comment on above: Performed By: #### C BC ####[facility] Oosgziefli7[address] [place], [place] [address]DrKianna Tripathi MONO # 0.3 103/ul Normal 0.3-0.8 [facility] Comment on above: Performed By: #### C BC ####[facility] Wjrlewnvar[address] [place], [place] [address]DrKianna Tripathi Monocytes/100 WBC (Bld) 5.2 % Normal 1.7-12.0 [facility] Comment on above: Performed By: #### C BC ####[facility] Rzbvuxnvam2294[address] [place], [place] [address]DrKianna Tripathi NEUT # 4.1 103/ul Normal 1.4-6.5 [facility] Comment on above: Performed By: #### C BC ####[facility] Wenhaonkzx[address] [place], [place] [id number] Tripathi Neutrophils/100 WBC (Bld) 68.9 % Normal 43.0-75.0 [facility] Comment on above: Performed By: #### C BC ####[facility] Pdhyffbbcu[address] [place], [place] [id number] Tripathi Platelet mean volume (Bld) [Entitic vol] 9.8 fL Normal 9.5-13.5 [facility] Comment on above: Performed By: #### C BC ####[facility] Toesooiitx8[address] [place], [place] [id number] Tripathi PLT 329 103/ul Normal 150-450 [facility] Comment on above: Performed By: #### C BC ####[facility] Uzahwdatna7[address] [place] [id number]. Airam Tripathi RBC 3.19 106/ul Critically low 4.20-5.40 [facility] Comment on above: Performed By: #### C BC ####[facility] Tndnmdjgps55[address] [place] [phone]. Airam Tripathi WBC 5.9 103/ul Normal 4.0-11.0 [facility] Comment on above: Performed By: #### C BC ####[facility] Mvqtubnwlg36[address] [place] [address]Dr. Airam Tripathi PROF 14(COMP METB)on 022 Albumin [Mass/Vol] 2.9 g/dL Critically low 3.4-5.0 Th e [facility] Comment on above: Performed By: #### C MP ####[facility] Ocpljxgrfl18[address] [place], [place] [address]Dr. Airam Tripathi Albumin/Globulin [Mass ratio] 0.9 {ratio} Normal [facility] Comment on above: Performed By: #### C MP ####[facility] Vigqrwtkpi2466[address] [place], [place] [address]Dr. Airam Tripathi ALP [Catalytic activity/Vol] 127 U/L Critically high 46-116 [facility] Comment on above: Performed By: #### C MP ####[facility] Igestsylkb6[address] [place] [address]Dr. Airam Tripathi ALT [Catalytic activity/Vol] 22 U/L Normal 14-59 [facility] Comment on above: Performed By: #### C MP ####[facility] Idfxfnaoit369[address] [place], [place] [address]Dr. Airam Tripathi Anion gap [Moles/Vol] 6.7 mmol/L Normal [facility] Comment on above: Performed By: #### C MP ####[facility] Qrzdenxola8314[address] [place], [place] [address]Dr. Airam Tripathi AST [Catalytic activity/Vol] 24 U/L Normal 15-37 [facility] Comment on above: Performed By: #### C MP ####[facility] Civotziyqw[address] [place] [address]Dr. Airam Tripathi Bilirubin [Mass/Vol] 0.2 mg/dL Normal 0.2-1.0 [facility] Comment on above: Performed By: #### C MP ####[facility] Vexuvgarer7738 [place] [phone]. Airam Tripathi Calcium [Mass/Vol] 8.2 mg/dL Critically low 8.5-10.1 Th [facility] Comment on above: Performed By: #### C MP ####[facility] Mtrikegkcx429[address] [place], [place] [address]Dr. Airam Tripathi Chloride [Moles/Vol] 105 mmol/L Normal 98-107 [facility] Comment on above: Performed By: #### C MP ####[facility] Yygtezufpr12[address] [place], [place] [address]Dr. Airam Tripathi CO2 [Moles/Vol] 28.2 mmol/L Normal 21.0-32.0 [facility] Comment on above: Performed By: #### C MP ####[facility] Wcvgpvzelb6522[address] [place], [place] [address]Dr. Airam Tripathi Creatinine [Mass/Vol] 1.22 mg/dL Critically high 0.55-1.02 [facility] Comment on above: Performed By: #### C MP ####[facility] Iibixkmhcb2464[address] [place], [place] [address]Dr. Airam Tripathi EGFR-AF VENEZUELAN 54 mL/min/1.73m2 Critically low >=60 [facility] Comment on above: Performed By: #### C MP ####[facility] Lxuzcbeomp[address] [place], [place] [address]Dr. Airam Tripathi EGFR-NON AF VENEZUELAN 45 mL/min/1.73m2 Critically low >=60 [facility] Comment on above: Performed By: #### C MP ####[facility] Jnzxhcefbt134[address] [place], [place] [address]Dr. Airam Tripathi Globulin (S) [Mass/Vol] 3.2 g/dL Normal [facility] Comment on above: Performed By: #### C MP ####[facility] Dvahgdepnm39[address] [place] [address]Dr. Airma Tripathi Glucose [Mass/Vol] 77 mg/dL Normal 74-106 [facility] Comment on above: Performed By: #### C MP ####[facility] Zkdypnacfn8[address] [place] [address]Dr. Airam Tripathi Potassium [Moles/Vol] 4.9 mmol/L Normal 3.5-5.1 [facility] Comment on above: Performed By: #### C MP ####[facility] Nrspnnsewb8[address] [place] [address]Dr. iAram Tripathi Protein [Mass/Vol] 6.1 g/dL Critically low 6.4-8.2 [facility] Comment on above: Performed By: #### C MP ####[facility] Pawcnoetty[address] [place], [place] [address]Dr. Airam Tripathi Sodium [Moles/Vol] 135 mmol/L Critically low 136-145 Th [facility] Comment on above: Performed By: #### C MP ####[facility] Jtpazbiqif447[address] [place], [place] [address]Dr. Airam Tripathi Urea nitrogen [Mass/Vol] 30.0 mg/dL Critically high 7.0-18.0 [facility] Comment on above: Performed By: #### C MP ####[facility] Gnovfltufr[address] [place], [place] [address]Dr. Airam Tripathi Urea nitrogen/Creatinine [Mass ratio] 24.6 mg/mg Normal [facility] Comment on above: Performed By: #### C MP ####[facility] Bxjweyylcv9964[address] [place], [place] [address]Dr. Airam Tripathi OSMOLALITYon 04-23-2022 Osmolality [Osmolality] 289 mosm/kg Normal 275-295 [facility] Comment on above: Performed By: #### O SMO ####[facility] Svrhvyhcoe74[address] [place], [place] [address]Dr. Airam Tripathi CBC AUTO DIFFon 04-20-2022 BASO # 0.0 103/ul Normal 0.0-0.1 [facility] Comment on above: Performed By: #### C BC ####[facility] Pvivxndyxn24[address] [place] [address]Dr. Airam Tripathi Basophils/100 WBC (Bld) 0.4 % Normal 0.2-2.0 [facility] Comment on above: Performed By: #### C BC ####[facility] Rfbbztzsbp67[address] [place], [place] [address]Dr. Airam Tripathi EO # 0.2 103/ul Normal 0.0-0.7 [facility] Comment on above: Performed By: #### C BC ####[facility] Nleihrwxfk5665[address] [place], [place] [address]Dr. Airam Tripathi Eosinophils/100 WBC (Bld) 3.1 % Normal 0.9-7.0 [facility] Comment on above: Performed By: #### C BC ####[facility] Eyigkpaivv1324[address] [place], [place] [address]Dr. Airam Tripathi Erythrocyte distribution width (RBC) [Ratio] 13.8 % Normal 11.0-15.0 [facility] Comment on above: Performed By: #### C BC ####[facility] Doqdglwcck8[address] [place], [place] [address]Dr. Airam Tripathi Hematocrit (Bld) [Volume fraction] 29.5 % Critically low 36.0-48.0 [facility] Comment on above: Performed By: #### C BC ####[facility] Betvuqgckc512[address] [place], [place] [address]Dr. Airam Tripathi Hemoglobin (Bld) [Mass/Vol] 9.2 g/dL Critically low 12.0-16.0 [facility] Comment on above: Performed By: #### C BC ####[facility] Gggfirflil4170[address] [place], [place] [address]Dr. Airam Tripathi IG # 0.02 10e3/ul Normal 0.00-0.03 [facility] Comment on above: Performed By: #### C BC ####[facility] Meuvcgrazt6718[address] [place], [place] [address]Dr. Airam Tripathi IG % 0.4 % Normal 0.0-0.5 [facility] Comment on above: Performed By: #### C BC ####[facility] Gmjtcoimsa[address] [place] [address]Dr. Airam Deuce LYMPH # 0.8 103/ul Critically low 1.2-3.8 [facility] Comment on above: Performed By: #### C BC ####[facility] Cxhljhhhgi4[address] [place] [address]Dr. Airam Tripathi Lymphocytes/100 WBC (Bld) 14.0 % Critically low 20.5-60.0 [facility] Comment on above: Performed By: #### C BC ####[facility] Lpcjryihkh[address] [place], [place] [address]Dr. Airam Tripathi MANUAL DIFF REQ NO Normal [facility] Comment on above: Performed By: #### C BC ####[facility] Nxghnsmzqc9854[address] [place], [place] [address]Dr. Airam Tripathi MCH (RBC) [Entitic mass] 30.4 pg Normal 26.7-34.0 [facility] Comment on above: Performed By: #### C BC ####[facility] Ucbbwxdsby1430[address] [place], [place] [address]Dr. Selenaneil Tripathi MCHC (RBC) [Mass/Vol] 31.2 g/dL Normal 29.9-35.2 [facility] Comment on above: Performed By: #### C BC ####[facility] Nqrerxxspy[address] [place], [place] [address]Dr. Airam Tripathi MCV (RBC) [Entitic vol] 97.4 fL Normal 81.0-99.0 [facility] Comment on above: Performed By: #### C BC ####[facility] Nvihuundyo7[address] [place], [place] [address]DrKianna Tripathi MONO # 0.3 103/ul Normal 0.3-0.8 [facility] Comment on above: Performed By: #### C BC ####[facility] Hcmxhtwgbx39[address] [place], [place] [address]Dr. Airam Tripathi Monocytes/100 WBC (Bld) 5.6 % Normal 1.7-12.0 [facility] Comment on above: Performed By: #### C BC ####[facility] Dzsstxoftp[address] [place] [address]Dr. Selenaneil Tripathi NEUT # 4.2 103/ul Normal 1.4-6.5 [facility] Comment on above: Performed By: #### C BC ####[facility] Uhmgqqohik[address] [place] [address]Dr. Airam Tripathi Neutrophils/100 WBC (Bld) 76.5 % Critically high 43.0-75.0 [facility] Comment on above: Performed By: #### C BC ####[facility] Xafyxlazzq0936 [place] [address]DrKianna Tripathi Platelet mean volume (Bld) [Entitic vol] 9.4 fL Critically low 9.5-13.5 [facility] Comment on above: Performed By: #### C BC ####[facility] Qljlzgntmv54[address] [place], [place] [address]Dr. Airam Tripathi PLT 250 103/ul Normal 150-450 [facility] Comment on above: Performed By: #### C BC ####[facility] Bomkprpwpj[address] [place], [place] [address]Dr. Airam Tripathi RBC 3.03 106/ul Critically low 4.20-5.40 [facility] Comment on above: Performed By: #### C BC ####[facility] Mtiojunfos[address] [place] [address]Dr. Airam Tripathi WBC 5.5 103/ul Normal 4.0-11.0 [facility] Comment on above: Performed By: #### C BC ####[facility] Swogwijchx110[address] [place] [address]DrKianna Tripathi PROF 14(COMP METB)on 022 Albumin [Mass/Vol] 2.7 g/dL Critically low 3.4-5.0 [facility] Comment on above: Performed By: #### C MP ####[facility] Wcibczjize[address] [place], [place] [address]DrKianna Tripatih Albumin/Globulin [Mass ratio] 0.9 {ratio} Normal [facility] Comment on above: Performed By: #### C MP ####[facility] Crscosgihd[address] [place] [address]Dr. Airam Tripathi ALP [Catalytic activity/Vol] 113 U/L Normal 46-116 [facility] Comment on above: Performed By: #### C MP ####[facility] Qpbxfaxyyc72[address] [place] [address]Dr. Airam Deuce ALT [Catalytic activity/Vol] 20 U/L Normal 14-59 [facility] Comment on above: Performed By: #### C MP ####[facility] [address]run[address] [place], [place] [address]Dr. Selenaneil Deuce Anion gap [Moles/Vol] 11.1 mmol/L Normal [facility] Comment on above: Performed By: #### C MP ####[facility] Gfqapalyvm[address] [place], [place] [address]Dr. Airam Deuce AST [Catalytic activity/Vol] 19 U/L Normal 15-37 [facility] Comment on above: Performed By: #### C MP ####[facility] Odejkxiyyw[address] [place], [place] [address]Dr. Airam Deuce Bilirubin [Mass/Vol] 0.2 mg/dL Normal 0.2-1.0 [facility] Comment on above: Performed By: #### C MP ####[facility] Wlccrzswhx[address] [place], [place] [address]Dr. Selenaneil Deuce Calcium [Mass/Vol] 8.3 mg/dL Critically low 8.5-10.1 [facility] Comment on above: Performed By: #### C MP ####[facility] Iaxximsjfw[address] [place], [place] [address]Dr. Airam Tripathi Chloride [Moles/Vol] 104 mmol/L Normal 98-107 [facility] Comment on above: Performed By: #### C MP ####[facility] Twtjnjfibk[address] [place], [place] [address]Dr. Airam Tripathi CO2 [Moles/Vol] 25.3 mmol/L Normal 21.0-32.0 [facility] Comment on above: Performed By: #### C MP ####[facility] Gnhvqkgvsj[address] [place] [id number]. Airam Tripathi Creatinine [Mass/Vol] 1.33 mg/dL Critically high 0.55-1.02 [facility] Comment on above: Performed By: #### C MP ####[facility] Ewmrarehjp[address] [place] [id number]. Airam Deuce EGFR-AF VENEZUELAN 49 mL/min/1.73m2 Critically low >=60 [facility] Comment on above: Performed By: #### C MP ####[facility] Rmdlxmafuz2611 [place] [id number]. Airam Deuce EGFR-NON AF VENEZUELAN 41 mL/min/1.73m2 Critically low >=60 [facility] Comment on above: Performed By: #### C MP ####[facility] Bkepktaxps[address] [place] [address]Dr. Airam Deuce Globulin (S) [Mass/Vol] 3.1 g/dL Normal [facility] Comment on above: Performed By: #### C MP ####[facility] Kvgbccdkgq04[address] [place] [address]Dr. Airam Deuce Glucose [Mass/Vol] 88 mg/dL Normal 74-106 [facility] Comment on above: Performed By: #### C MP ####[facility] Civbriqtgm[address] [place] [address]Dr. Airam Deuce Potassium [Moles/Vol] 5.4 mmol/L Critically high 3.5-5.1 [facility] Comment on above: Performed By: #### C MP ####[facility] Oijwlhfxnp30[address] [place] [id number]. Airam Deuce Protein [Mass/Vol] 5.8 g/dL Critically low 6.4-8.2 Th [facility] Comment on above: Performed By: #### C MP ####[facility] Oaoembtorm0265 [place] [id number]. Airam Tripathi Sodium [Moles/Vol] 135 mmol/L Critically low 136-145 Th e [facility] Comment on above: Performed By: #### C MP ####[facility] Fuvydyvwkk[address] [place], [place] [address]Dr. Airam Tripathi Urea nitrogen [Mass/Vol] 38.0 mg/dL Critically high 7.0-18.0 [facility] Comment on above: Performed By: #### C MP ####[facility] Lqpnaackge[address] [place], [place] [address]Dr. Airam Tripathi Urea nitrogen/Creatinine [Mass ratio] 28.6 mg/mg Normal [facility] Comment on above: Performed By: #### C MP ####[facility] Miwmzpiuew4[address] [place], [place] [address]Dr. Airam Deuce OSMOLALITYon 04-15-2022 Osmolality [Osmolality] 284 mosm/kg Normal 275-295 [facility] Comment on above: Performed By: #### O SMO ####[facility] Pitujtfxnf24[address] [place], [place] [address]Dr. Airam Tripathi CBC AUTO DIFFon 04-14-2022 BASO # 0.0 103/ul Normal 0.0-0.1 [facility] Comment on above: Performed By: #### C BC ####[facility] Uaarzluhio[address] [place], [place] [address]Dr. Airam Deuce Basophils/100 WBC (Bld) 0.5 % Normal 0.2-2.0 [facility] Comment on above: Performed By: #### C BC ####[facility] Fmrfuwxubh24[address] [place], [place] [address]Dr. Airam Tripathi EO # 0.3 103/ul Normal 0.0-0.7 [facility] Comment on above: Performed By: #### C BC ####[facility] Ltixthhhrg2526[address] [place], [place] [address]Dr. Airam Deuce Eosinophils/100 WBC (Bld) 3.6 % Normal 0.9-7.0 [facility] Comment on above: Performed By: #### C BC ####[facility] Nmsgpfwhpp6[address] [place], [place] [address]Dr. Airam Deuce Erythrocyte distribution width (RBC) [Ratio] 13.4 % Normal 11.0-15.0 [facility] Comment on above: Performed By: #### C BC ####[facility] Ipxkwepvwr52[address] [place] [address]DrKianna Tripathi Hematocrit (Bld) [Volume fraction] 30.6 % Critically low 36.0-48.0 [facility] Comment on above: Performed By: #### C BC ####[facility] Yxhmhykbyv6[address] [place], [place] [address]DrKianna Tripathi Hemoglobin (Bld) [Mass/Vol] 9.7 g/dL Critically low 12.0-16.0 [facility] Comment on above: Performed By: #### C BC ####[facility] Bnbirxllgx[address] [place], [place] [address]DrKianna Tripathi IG # 0.08 10e3/ul Critically high 0.00-0.03 [facility] Comment on above: Performed By: #### C BC ####[facility] Aelfgpgpap[address] [place], [place] [address]DrKianna Tripathi IG % 0.9 % Critically high 0.0-0.5 [facility] Comment on above: Performed By: #### C BC ####[facility] Khywcfbliq[address] [place], [place] [address]DrKianna Tripathi LYMPH # 2.1 103/ul Normal 1.2-3.8 [facility] Comment on above: Performed By: #### C BC ####[facility] Mmkepippoi[address] [place], [place] [address]DrKianna Tripathi Lymphocytes/100 WBC (Bld) 24.2 % Normal 20.5-60.0 The [facility] Comment on above: Performed By: #### C BC ####[facility] Nvnvqkjgqo[address] [place], [place] [address]DrKianna Tripathi MANUAL DIFF REQ NO Normal [facility] Comment on above: Performed By: #### C BC ####[facility] Dickxpjpvi024[address] [place], [place] [address]DrKianna Tripathi MCH (RBC) [Entitic mass] 30.4 pg Normal 26.7-34.0 [facility] Comment on above: Performed By: #### C BC ####[facility] Zvqetbeltd4[address] [place] [address]Dr. Airam Tripathi MCHC (RBC) [Mass/Vol] 31.7 g/dL Normal 29.9-35.2 [facility] Comment on above: Performed By: #### C BC ####[facility] Ttqbcjomwp7[address] [place], [place] [address]DrKianna Tripathi MCV (RBC) [Entitic vol] 95.9 fL Normal 81.0-99.0 [facility] Comment on above: Performed By: #### C BC ####[facility] Igvtwsnlno[address] [place], [place] [address]DrKianna Tripathi MONO # 0.5 103/ul Normal 0.3-0.8 [facility] Comment on above: Performed By: #### C BC ####[facility] Kevtdvvlnm6544[address] [place], [place] [address]Dr. Airam Tripathi Monocytes/100 WBC (Bld) 6.0 % Normal 1.7-12.0 [facility] Comment on above: Performed By: #### C BC ####[facility] Dbhevvaekc[address] [place], [place] [address]DrKianna Tripathi NEUT # 5.6 103/ul Normal 1.4-6.5 The [facility] Comment on above: Performed By: #### C BC ####[facility] Bjzaufenla22[address] [place], [place] [address]DrKianna Tripathi Neutrophils/100 WBC (Bld) 64.8 % Normal 43.0-75.0 [facility] Comment on above: Performed By: #### C BC ####[facility] Saqbrzymvh[address] [place], [place] [address]DrKianna Tripathi Platelet mean volume (Bld) [Entitic vol] 9.2 fL Critically low 9.5-13.5 [facility] Comment on above: Performed By: #### C BC ####[facility] Gynvoscven9739[address] [place], [place] [address]DrKianna Tripathi PLT 296 103/ul Normal 150-450 [facility] Comment on above: Performed By: #### C BC ####[facility] Ryoisjwqfl37[address] [place] [address]Dr. Selenaneil Deuce RBC 3.19 106/ul Critically low 4.20-5.40 [facility] Comment on above: Performed By: #### C BC ####[facility] Wruzdegwch[address] [place] [address]Dr. Airam Tripathi WBC 8.6 103/ul Normal 4.0-11.0 [facility] Comment on above: Performed By: #### C BC ####[facility] Zttdxgtorb8132 [place] [address]DrKianna Tripathi PROF 14(COMP METB)on 022 Albumin [Mass/Vol] 3.2 g/dL Critically low 3.4-5.0 e [facility] Comment on above: Performed By: #### C MP ####[facility] Gygshzdoqr[address] [place], [place] [address]Dr. Airam Tripathi Albumin/Globulin [Mass ratio] 1.0 {ratio} Normal [facility] Comment on above: Performed By: #### C MP ####[facility] Rogaedfofe[address] [place], [place] [address]Dr. Airam Tripathi ALP [Catalytic activity/Vol] 126 U/L Critically high 46-116 [facility] Comment on above: Performed By: #### C MP ####[facility] Eavgixwoxp6567 [place] [address]Dr. Airam Tripathi ALT [Catalytic activity/Vol] 27 U/L Normal 14-59 [facility] Comment on above: Performed By: #### C MP ####[facility] Bisuihnqyf6076 [place] [address]Dr. Airam Tripathi Anion gap [Moles/Vol] 9.6 mmol/L Normal [facility] Comment on above: Performed By: #### C MP ####[facility] Fthgtdpscb[address]64[address] [place], [place] [address]Dr. Airam Tripathi AST [Catalytic activity/Vol] 25 U/L Normal 15-37 [facility] Comment on above: Performed By: #### C MP ####[facility] Coapkkwwio[address] [place] [address]Dr. Airam Deuce Bilirubin [Mass/Vol] 0.3 mg/dL Normal 0.2-1.0 [facility] Comment on above: Performed By: #### C MP ####[facility] Bpzjrwrxxf20[address] [place], [place] [address]Dr. Airam Tripathi Calcium [Mass/Vol] 8.1 mg/dL Critically low 8.5-10.1 Th [facility] Comment on above: Performed By: #### C MP ####[facility] Fnybdjedlo62[address] [place], [place] [address]Dr. Airam Tripathi Chloride [Moles/Vol] 100 mmol/L Normal 98-107 [facility] Comment on above: Performed By: #### C MP ####[facility] Ewawtqmlzx335[address] [place], [place] [address]Dr. Airam Tripathi CO2 [Moles/Vol] 26.5 mmol/L Normal 21.0-32.0 [facility] Comment on above: Performed By: #### C MP ####[facility] Tkkvrjxdpx7[address] [place], [place] [address]Dr. Airam Tripathi Creatinine [Mass/Vol] 1.52 mg/dL Critically high 0.55-1.02 [facility] Comment on above: Performed By: #### C MP ####[facility] Vfvzyvwqzu4[address] [place], [place] [address]Dr. Airam Tripathi EGFR-AF VENEZUELAN 42 mL/min/1.73m2 Critically low >=60 [facility] Comment on above: Performed By: #### C MP ####[facility] Utmbmeuseb[address] [place], [place] [address]Dr. Airam Tripathi EGFR-NON AF VENEZUELAN 35 mL/min/1.73m2 Critically low >=60 [facility] Comment on above: Performed By: #### C MP ####[facility] Rpunmeslgb0948[address] [place], [place] [address]Dr. Airam Tripathi Globulin (S) [Mass/Vol] 3.3 g/dL Normal [facility] Comment on above: Performed By: #### C MP ####[facility] Ryqihjangf[address] [place] [address]Dr. Airam Deuce Glucose [Mass/Vol] 75 mg/dL Normal 74-106 [facility] Comment on above: Performed By: #### C MP ####[facility] Smgtylwiva3520[address] [place], [place] [address]Dr. Airam Tripathi Potassium [Moles/Vol] 4.1 mmol/L Normal 3.5-5.1 [facility] Comment on above: Performed By: #### C MP ####[facility] Odpqkxmzah0[address] [place], [place] [address]Dr. Airam Tripathi Protein [Mass/Vol] 6.5 g/dL Normal 6.4-8.2 [facility] Comment on above: Performed By: #### C MP ####[facility] Qzricxttms17[address] [place], [place] [address]Dr. Airam Tripathi Sodium [Moles/Vol] 132 mmol/L Critically low 136-145 Th [facility] Comment on above: Performed By: #### C MP ####[facility] Byrncbvbbt[address]01[address] [place], [place] [address]Dr. Airam Tripathi Urea nitrogen [Mass/Vol] 40.0 mg/dL Critically high 7.0-18.0 [facility] Comment on above: Performed By: #### C MP ####[facility] Pjclhvdxfa9[address] [place], [place] [address]Dr. Airam Tripathi Urea nitrogen/Creatinine [Mass ratio] 26.3 mg/mg Normal [facility] Comment on above: Performed By: #### C MP ####[facility] Ongkyirbju7327[address] [place], [place] [address]Dr. Airam Tripathi OSMOLALITYon 04-10-2022 Osmolality [Osmolality] 280 mosm/kg Normal 275-295 [facility] Comment on above: Performed By: #### O SMO ####[facility] Eemgepggre[address] [place], [place] [address]Dr. Airam Tripathi PTH INTACTon 04-09-2022 PTH, Intact 89 pg/mL Critically high 15-65 [facility] Comment on above: Performed By: #### P THINT ####[facility] Oeyhepbhgy[address] [place] [address]Dr. Airam Tripathi CBC W MANUAL DIFFon 04-08-20 22 ATYPICAL LYMPH # Normal [facility] Comment on above: Performed By: #### C CHRISTEN ####[facility] Xqxehbwafw14[address] [place] [address]Dr. Airam Tripathi ATYPICAL LYMPH % Normal [facility] Comment on above: Performed By: #### C CONNIEMAN ####[facility] Veyuchvadu[address] [place], [place] [address]Dr. Airam Triptahi BAND # Normal 0.0-0.3 [facility] Comment on above: Performed By: #### C CHRISTEN ####[facility] Pnbcbwfegs[address] [place], [place] [address]Dr. Airam Tripathi BAND % Normal 0-5 [facility] Comment on above: Performed By: #### C CHRISTEN ####[facility] Zdmhrfpufk0[address] [place], [place] [address]Dr. Airam Tripathi BASOM # 0.00 103/ul Normal 0.00-0.10 [facility] Comment on above: Performed By: #### C CHRISTEN ####[facility] Pstegkcitf99[address] [place], [place] [address]Dr. Airam Deuce BASOM % 0.0 % Critically low 0.2-2.0 [facility] Comment on above: Performed By: #### C BCGERALDINE ####[facility] Hdvgsdfiqs[address] [place], [place] [address]Dr. Airam Tripathi BLAST # Normal [facility] Comment on above: Performed By: #### C CHRISTEN ####[facility] Asngppvxjw8878[address] [place], [place] [address]Dr. Airam Tripathi BLAST % Normal [facility] Comment on above: Performed By: #### C CHRISTEN ####[facility] Szkguiyylh[address] [place], [place] [address]Dr. Airam Tirpathi CORRECTED WBC Normal 4.0-11.0 [facility] Comment on above: Performed By: #### C CHRISTEN ####[facility] Hlczvlbczm18[address] [place], [place] [address]Ei. Airam Tripathi EOS # 0.00 103/ul Normal 0.00-0.70 [facility] Comment on above: Performed By: #### C CHRISTEN ####[facility] Nzeklrzmph5942 [place] [id number]. Airam Tripathi EOS% 0.0 % Critically low 0.9-7.0 [facility] Comment on above: Performed By: #### C CHRISTEN ####[facility] Gfpwmwwmra8770 [place] [id number]. Airam Tripathi HCT 29.7 % Critically low 36.0-48.0 [facility] Comment on above: Performed By: #### C CHRISTEN ####[facility] Sftvgprdnz0712 [place] [phone]. Airam Tripathi HGB 9.5 g/dl Critically low 12.0-16.0 [facility] Comment on above: Performed By: #### C CHRISTEN ####[facility] Inmjbscgzz3314 [place] [id number]. Airam Tripathi LYMPHM # 0.42 103/ul Critically low 1.20-3.80 [facility] Comment on above: Performed By: #### C CHRISTEN ####[facility] Gfaqwjfjse2570 [place] [id number]. Airam Tripathi LYMPHM% 7.0 % Critically low 20.5-60.0 [facility] Comment on above: Performed By: #### C CHRISTEN ####[facility] Stqzwaguii0440 [place] [id number]. Airma Tripathi MCH 30.9 pg Normal 26.7-34.0 [facility] Comment on above: Performed By: #### C CHRISTEN ####[facility] Pxhowryizk1763 [place] [id number]. Airam Tripathi MCHC 32.0 g/dl Normal 29.9-35.2 [facility] Comment on above: Performed By: #### C CHRISTEN ####[facility] Tykpqrxoib1029 [place] [id number]. Airam Tripathi MCV 96.7 fL Normal 81.0-99.0 [facility] Comment on above: Performed By: #### C CHRISTEN ####[facility] Wihnncndhk1054 [place] [phone]. Airam Tripathi METAMYELOCYTE # Normal [facility] Comment on above: Performed By: #### C CHRISTEN ####[facility] Btneomsfsi9097 [place] [phone]. Airam Tripathi METAMYELOCYTE % Normal [facility] Comment on above: Performed By: #### C CHRISTEN ####[facility] Brgcfkykey18[address] [place], [place] [address]Dr. Airam Tripathi MONOM# 0.36 103/ul Normal 0.30-0.80 [facility] Comment on above: Performed By: #### C CHRISTEN ####[facility] Yofjyglips[address] [place], [place] [address]Dr. Airam Tripathi MONOM% 6.0 % Normal 1.7-12.0 [facility] Comment on above: Performed By: #### Jodee VELÁSQUEZ ####[facility] H[address]lnvzffwa[address] [place], [place] [address]Dr. Airam Tripathi MPV 9.5 fL Normal 9.5-13.5 [facility] Comment on above: Performed By: #### C CHRISTEN ####[facility] Vxngsyrcrp878[address] [place], [place] [address]Dr. Airam Tripathi MYELOCYTE # Normal [facility] Comment on above: Performed By: #### C CHRISTEN ####[facility] Sbsboizygb7[address] [place], [place] [address]Dr. Airam Tripathi MYELOCYTE % Normal [facility] Comment on above: Performed By: #### C CHRISTEN ####[facility] Skxjyqnpsz97[address] [place], [place] [address]Dr. Airam Tripathi NRBC Normal [facility] Comment on above: Performed By: #### C CHRISTEN ####[facility] Gaekdxrvhz2[address] [place], [place] [address]Ka. Airam Tripathi PLT 185 103/ul Normal 150-450 [facility] Comment on above: Performed By: #### Jodee VELÁSQUEZ ####[facility] Vzstfenety0606 [place], [place] [address]Ic. Airam Tripathi RBC 3.07 106/ul Critically low 4.20-5.40 [facility] Comment on above: Performed By: #### Jodee VELÁSQUEZ ####[facility] Ooebenmnfc13[address] [place] [id number]. Airam Tripathi RDW 13.6 % Normal 11.0-15.0 [facility] Comment on above: Performed By: #### Jodee VELÁSQUEZ ####[facility] Qrxqgaojcy5017 [place] [phone]. Airam Tripathi SEG # 5.22 103/ul Normal 1.40-6.50 [facility] Comment on above: Performed By: #### Jodee VELÁSQUEZ ####[facility] Tkeunbomez5635 [place] [phone]. Airam Tripathi SEG % 87.0 % Critically high 43.0-75.0 [facility] Comment on above: Performed By: #### Jodee VELÁSQUEZ ####[facility] Xdyqwieedd9761 [place] [phone]. Airam Tripathi WBC 6.0 103/ul Normal 4.0-11.0 [facility] Comment on above: Performed By: #### Jodee VELÁSQUEZ ####[facility] [address]ssqeqgem[address] [place], [place] [id number]. Airam Tripathi FREE THYROXINE INDEX T7on FTI 1.57 Normal 1.30-4.50 [facility] Comment on above: Performed By: #### T 7, TSH, CMP ####[facility] Mjdbayaumg0527 [place] [id number]. Airam Tripathi T3U 32.0 % Normal 30.0-39.0 [facility] Comment on above: Performed By: #### T 7, TSH, CMP ####[facility] Malvrpgpoj[address] [place], [place] [address]Dr. Airam Tripathi T4 [Mass/Vol] 4.90 ug/dL Normal 4.80-13.90 [facility] Comment on above: Performed By: #### T 7, TSH, CMP ####[facility] Awjekyxatq6[address] [place] [address]Dr. Airam Tripathi PROF 14(COMP METB)on 04-08- 022 Albumin [Mass/Vol] 3.0 g/dL Critically low 3.4-5.0 [facility] Comment on above: Performed By: #### T 7, TSH, CMP ####[facility] Kxeftxnloe97[address] [place] [address]Dr. Airam Tripathi Albumin/Globulin [Mass ratio] 1.0 {ratio} Normal [facility] Comment on above: Performed By: #### T 7, TSH, CMP ####[facility] Oqgmcwtpdz12[address] [place], [place] [address]Dr. Airam Tripathi ALP [Catalytic activity/Vol] 106 U/L Normal 46-116 [facility] Comment on above: Performed By: #### T 7, TSH, CMP ####[facility] Hhwvmcqjbr69[address] [place] [address]Dr. Airam Tripathi ALT [Catalytic activity/Vol] 20 U/L Normal 14-59 [facility] Comment on above: Performed By: #### T 7, TSH, CMP ####[facility] Dvkwuexryw9[address] [place] [address]Dr. Airam Tripathi Anion gap [Moles/Vol] 10.8 mmol/L Normal [facility] Comment on above: Performed By: #### T 7, TSH, CMP ####[facility] Qrymmeslcv9569 [place] [address]Dr. Airam Tripathi AST [Catalytic activity/Vol] 19 U/L Normal 15-37 [facility] Comment on above: Performed By: #### T 7, TSH, CMP ####[facility] Flccfxwcde101[address] [place] [address]Dr. Airam Tripathi Bilirubin [Mass/Vol] 0.3 mg/dL Normal 0.2-1.0 [facility] Comment on above: Performed By: #### T 7, TSH, CMP ####[facility] [address]afynpzhsk[address] [place], [place] [address]Dr. Airam Tripathi Calcium [Mass/Vol] 8.0 mg/dL Critically low 8.5-10.1 Th [facility] Comment on above: Performed By: #### T 7, TSH, CMP ####[facility] Rkrjpkkpdy[address] [place], [place] [address]Dr. Airam Tripathi Chloride [Moles/Vol] 100 mmol/L Normal 98-107 [facility] Comment on above: Performed By: #### T 7, TSH, CMP ####[facility] [address]scnqecflf[address] [place], [place] [address]Dr. Airam Tripathi CO2 [Moles/Vol] 24.3 mmol/L Normal 21.0-32.0 [facility] Comment on above: Performed By: #### T 7, TSH, CMP ####[facility] Opvjsjwatn[address] [place], [place] [address]Dr. Airam Tripathi Creatinine [Mass/Vol] 1.12 mg/dL Critically high 0.55-1.02 [facility] Comment on above: Performed By: #### T 7, TSH, CMP ####[facility] Dedkwvtuol[address] [place], [place] [address]Dr. Airam Tripathi EGFR-AF VENEZUELAN 60 mL/min/1.73m2 Normal >=60 [facility] Comment on above: Performed By: #### T 7, TSH, CMP ####[facility] Bfhmemkoch[address] [place], [place] [address]Dr. Airam Tripathi EGFR-NON AF VENEZUELAN 50 mL/min/1.73m2 Critically low >=60 [facility] Comment on above: Performed By: #### T 7, TSH, CMP ####[facility] Z[address]kgdumyi[address] [place], [place] [address]Dr. Airam Tripathi Globulin (S) [Mass/Vol] 3.0 g/dL Normal [facility] Comment on above: Performed By: #### T 7, TSH, CMP ####[facility] Iogstutewy[address] [place], [place] [address]Dr. Airam Tripathi Glucose [Mass/Vol] 76 mg/dL Normal 74-106 [facility] Comment on above: Performed By: #### T 7, TSH, CMP ####[facility] [address] [place] [address]Dr. Airam Tripathi Potassium [Moles/Vol] 4.1 mmol/L Normal 3.5-5.1 [facility] Comment on above: Performed By: #### T 7, TSH, CMP ####[facility] [address] [place] [address]Dr. Airam Tripathi Protein [Mass/Vol] 6.0 g/dL Critically low 6.4-8.2 [facility] Comment on above: Performed By: #### T 7, TSH, CMP ####[facility] Kctzayapba[address] [place], [place] [address]Dr. Airam Tripathi Sodium [Moles/Vol] 131 mmol/L Critically low 136-145 [facility] Comment on above: Performed By: #### T 7, TSH, CMP ####[facility] [address]cj[address] [place] [address]Dr. Airam Tripathi Urea nitrogen [Mass/Vol] 32.0 mg/dL Critically high 7.0-18.0 [facility] Comment on above: Performed By: #### T 7, TSH, CMP ####[facility] [address] [place] [address]Dr. Airam Tripathi Urea nitrogen/Creatinine [Mass ratio] 28.6 mg/mg Normal [facility] Comment on above: Performed By: #### T 7, TSH, CMP ####[facility] [address] [place] [address]Dr. Airam Tripathi TSHon 04-08-2022 TSH 0.027 uIU/mL Critically low 0.358-3.74 0 [facility] Comment on above: Performed By: #### T 7, TSH, CMP ####[facility] [address] [place] [address]Dr. Airam Tripathi UA RANDOMon 04-08-2022 Bilirubin Ql (U) Negative Normal NEGATIVE The [facility] Comment on above: Performed By: #### U A ####[facility] Cnghnoxzro[address] [place], [place] [address]Dr. Airam Tripathi Clarity (U) CLEAR Normal CLEAR The [facility] Comment on above: Performed By: #### U A ####[facility] Vnlqtegdut[address] [place], [place] [address]Dr. Airam Tripathi Color (U) LT. YELLOW Normal YELLOW The [facility] Comment on above: Performed By: #### U A ####[facility] Rvbgfigjzy09[address] [place], [place] [address]Dr. Airam Tripathi Glucose Ql (U) Negative Normal NEGATIVE The [facility] Comment on above: Performed By: #### U A ####[facility] Dffloajvgq[address] [place], [place] [address]Dr. Airam Tripathi Hemoglobin Ql (U) Negative Normal NEGATIVE The [facility] Comment on above: Performed By: #### U A ####[facility] Kkkfmfapkc4[address] [place], [place] [address]Dr. Airam Tripathi Ketones Ql (U) Negative Normal NEGATIVE The [facility] Comment on above: Performed By: #### U A ####[facility] Wqhzpyadrs[address] [place], [place] [address]Dr. Airam Tripathi LEUKOCYTES Negative Normal NEGATIVE The [facility] Comment on above: Performed By: #### U A ####[facility] Werzwlwusr[address] [place], [place] [address]Dr. Airam Tripathi Nitrite Ql (U) Negative Normal NEGATIVE The [facility] Comment on above: Performed By: #### U A ####[facility] Nggncbvhpo[address] [place], [place] [address]Dr. Airam Tripathi pH (U) 6.0 [pH] Normal 5-9 [facility] Comment on above: Performed By: #### U A ####[facility] Dfztvpdrmx[address] [place], [place] [address]Dr. Airam Tripathi SPEC GRAVITY 1.010 Normal 1.005-<=1. 025 [facility] Comment on above: Performed By: #### U A ####[facility] [address] [place] [address]Dr. Airam Tripathi UA PROTEIN Negative Normal NEGATIVE/ TRACE The [facility] Comment on above: Performed By: #### U A ####[facility] [address]komm[address] [place] [address]Dr. Airam Tripathi Urobilinogen Qn (U) 0.2 {Ligia'U}/dL Normal 0.2 - 1. 0 [facility] Comment on above: Performed By: #### U A ####[facility] Eynqtcmigl[address] [place], [place] [address]Dr. Airam Tripathi URINE T PROTEIN CREAT RATIOo n 04-08-2022 UR PROT CREAT RAT 0.32 Normal The [facility] Comment on above: Performed By: #### U RTPCR ####[facility] Usadchtdmh[address] [place], [place] [address]Dr. Airam Tripathi UR TOTAL PROTEIN <6.0 Normal <=12.0 [facility] Comment on above: Performed By: #### U RTPCR ####[facility] Prarheennq[address] [place], [place] [address]Dr. Airam Tripathi URINE CREAT 18.75 mg/dL Critically low 20.00-300. 00 [facility] Comment on above: Performed By: #### U RTPCR ####[facility] Tfjqlrnnrm[address] [place], [place] [address]Dr. Airam Tripathi FERRITINon 04-06-2022 Ferritin [Mass/Vol] 99.0 ng/mL Normal 8.0-252.0 [facility] Comment on above: Performed By: #### F ETIBC, VITAD, FERR ####[facility] Rwzsmajhkv[address] [place], [place] [address]Dr. Airam Tripathi IRON AND TIBCon 04-06-2022 % SATURATION 15.4 % Normal The [facility] Comment on above: Performed By: #### F ETIBC, VITAD, FERR ####[facility] Lfmbgdkdwj[address] [place], [place] [address]Dr. Airam Tripathi Iron [Mass/Vol] 43.0 ug/dL Critically low 50.0-170.0 [facility] Comment on above: Performed By: #### F ETIBC, VITAD, FERR ####[facility] [address] [place] [address]Dr. Airam Tripathi TIBC DIRECT 280.0 ug/dL Normal 250.0-450. 0 [facility] Comment on above: Performed By: #### F ETIBC, VITAD, FERR ####[facility] [address]ty[address]zz[address] [place] [address]Dr. Airam Tripathi PROF 14(COMP METB)on 022 Albumin [Mass/Vol] 3.2 g/dL Critically low 3.4-5.0 [facility] Comment on above: Performed By: #### C MP, URIC ####[facility] Hiobsfczjo[address] [place], [place] [address]Dr. Airam Tripathi Albumin/Globulin [Mass ratio] 1.0 {ratio} Normal [facility] Comment on above: Performed By: #### C MP, URIC ####[facility] Djlybperig[address] [place], [place] [address]Dr. Airam Tripathi ALP [Catalytic activity/Vol] 118 U/L Critically high 46-116 [facility] Comment on above: Performed By: #### C MP, URIC ####[facility] Firpjisqfc[address] [place], [place] [address]Dr. Airam Tripathi ALT [Catalytic activity/Vol] 24 U/L Normal 14-59 [facility] Comment on above: Performed By: #### C MP, URIC ####[facility] Epnybzslxn67[address] [place], [place] [address]Dr. Airam Triptahi Anion gap [Moles/Vol] 14.4 mmol/L Normal [facility] Comment on above: Performed By: #### C MP, URIC ####[facility] Ljquqinmjo[address] [place], [place] [address]Dr. Airam Tripathi AST [Catalytic activity/Vol] 21 U/L Normal 15-37 [facility] Comment on above: Performed By: #### C MP, URIC ####[facility] Fybyybczzy[address] [place], [place] [address]Dr. Airam Tripathi Bilirubin [Mass/Vol] 0.3 mg/dL Normal 0.2-1.0 [facility] Comment on above: Performed By: #### C MP, URIC ####[facility] Skypvgxldj[address] [place], [place] [address]Dr. Airam Tripathi Calcium [Mass/Vol] 8.0 mg/dL Critically low 8.5-10.1 Th e [facility] Comment on above: Performed By: #### C MP, URIC ####[facility] Qgpvbxfyle[address] [place], [place] [address]Dr. Airam Tripathi Chloride [Moles/Vol] 98 mmol/L Normal 98-107 [facility] Comment on above: Performed By: #### C MP, URIC ####[facility] Zophjlzsys[address] [place], [place] [address]Dr. Airam Tripathi CO2 [Moles/Vol] 22.0 mmol/L Normal 21.0-32.0 [facility] Comment on above: Performed By: #### C MP, URIC ####[facility] [address]qvoegtpb[address] [place], [place] [address]Dr. Airam Tripathi Creatinine [Mass/Vol] 1.86 mg/dL Critically high 0.55-1.02 [facility] Comment on above: Performed By: #### C MP, URIC ####[facility] Brzrgjvxza[address] [place], [place] [address]Dr. Airam Tripathi EGFR-AF VENEZUELAN 33 mL/min/1.73m2 Critically low >=60 [facility] Comment on above: Performed By: #### C MP, URIC ####[facility] Iyxcsxdjtm[address] [place], [place] [address]Dr. Airam Tripathi EGFR-NON AF VENEZUELAN 28 mL/min/1.73m2 Critically low >=60 [facility] Comment on above: Performed By: #### C MP, URIC ####[facility] G[address]vkqduxf[address] [place], [place] [address]Dr. Airam Tripathi Globulin (S) [Mass/Vol] 3.1 g/dL Normal [facility] Comment on above: Performed By: #### C MP, URIC ####[facility] [address] [place] [id number]. Airam Tripathi Glucose [Mass/Vol] 93 mg/dL Normal 74-106 [facility] Comment on above: Performed By: #### C MP, URIC ####[facility] [address]rj[address] [place] [id number]. Airam Tripathi Potassium [Moles/Vol] 4.4 mmol/L Normal 3.5-5.1 [facility] Comment on above: Performed By: #### C MP, URIC ####[facility] [address] [place] [id number]. Airam Tripathi Protein [Mass/Vol] 6.3 g/dL Critically low 6.4-8.2 [facility] Comment on above: Performed By: #### C MP, URIC ####[facility] [address]pxdr[address] [place] [address]Dr. Airam Tripathi Sodium [Moles/Vol] 130 mmol/L Critically low 136-145 [facility] Comment on above: Performed By: #### C MP, URIC ####[facility] [address] [place] [address]Dr. Airam Tripathi Urea nitrogen [Mass/Vol] 49.0 mg/dL Critically high 7.0-18.0 [facility] Comment on above: Performed By: #### C MP, URIC ####[facility] [address]qnahh[address] [place] [address]Dr. Airam Tripathi Urea nitrogen/Creatinine [Mass ratio] 26.3 mg/mg Normal [facility] Comment on above: Performed By: #### C MP, URIC ####[facility] [address]fi[address] [place] [address]Dr. Airam Tripathi URIC ACID SERUMon 04-06-2022 Urate [Mass/Vol] 6.5 mg/dL Critically high 2.6-6.0 [facility] Comment on above: Performed By: #### C MP, URIC ####[facility] O[address]xccrf[address] [place] [address]Dr. Airam Tripathi VITAMIN D 25 OHon 04-06-2022 VIT D 25-OH 74.5 ng/mL Normal [facility] Comment on above: Performed By: #### F ETIBC, VITAD, FERR ####[facility] Bgkiduvogz[address] [place], [place] [address]Dr. Airam Tripathi VIT D RANGES SEE BELOW Normal [facility] Comment on above: Result Comment: <20 ng/mL Vit D deficient 20 - <30 ng/mL Vit D insufficient 30 - 100 ng/mL Vit D sufficient >100 ng/mL Potential Toxicity Performed By: #### F ETIBC, VITAD, FERR ####[facility] [address]irzsnv[address] [place], [place] [address]Dr. Airam Tripathi OSMOLALITYon 04-01-2022 Osmolality [Osmolality] 284 mosm/kg Normal 275-295 [facility] Comment on above: Performed By: #### O SMO ####[facility] Peketsxymi[address] [place], [place] [address]Dr. Airam Deuce CBC AUTO DIFFon 03-31-2022 BASO # 0.0 103/ul Normal 0.0-0.1 [facility] Comment on above: Performed By: #### C BC ####[facility] Ubiygauyan[address] [place], [place] [address]Dr. Airam Tripathi Basophils/100 WBC (Bld) 0.3 % Normal 0.2-2.0 [facility] Comment on above: Performed By: #### C BC ####[facility] Xziwtilqxr[address] [place], [place] [address]Dr. Airam Tripathi EO # 0.1 103/ul Normal 0.0-0.7 [facility] Comment on above: Performed By: #### C BC ####[facility] Khvahbxvmv[address] [place], [place] [address]Dr. Airam Tripathi Eosinophils/100 WBC (Bld) 2.0 % Normal 0.9-7.0 [facility] Comment on above: Performed By: #### C BC ####[facility] Kfrkwkzmmk[address] [place], [place] [address]Dr. Airam Tripathi Erythrocyte distribution width (RBC) [Ratio] 13.5 % Normal 11.0-15.0 [facility] Comment on above: Performed By: #### C BC ####[facility] Jysexeltbk[address] [place] [address]DrKianna Airam Tripathi Hematocrit (Bld) [Volume fraction] 32.5 % Critically low 36.0-48.0 [facility] Comment on above: Performed By: #### C BC ####[facility] [address]rzeoqwuzh[address] [place] [address]DrKianna Tripathi Hemoglobin (Bld) [Mass/Vol] 10.1 g/dL Critically low 12.0-16.0 [facility] Comment on above: Performed By: #### C BC ####[facility] Coeutchxza[address] [place], [place] [address]DrKianna Tripathi IG # 0.03 10e3/ul Normal 0.00-0.03 [facility] Comment on above: Performed By: #### C BC ####[facility] Vrdwrubend8[address] [place], [place] [address]DrKianna Tripathi IG % 0.4 % Normal 0.0-0.5 [facility] Comment on above: Performed By: #### C BC ####[facility] Xfzqisgmek[address] [place], [place] [address]DrKianna Tripathi LYMPH # 1.6 103/ul Normal 1.2-3.8 [facility] Comment on above: Performed By: #### C BC ####[facility] Znwvyqueqd64[address] [place], [place] [address]DrKianna Tripathi Lymphocytes/100 WBC (Bld) 22.6 % Normal 20.5-60.0 [facility] Comment on above: Performed By: #### C BC ####[facility] Pvuemcyosf[address] [place], [place] [address]DrKianna Tripathi MANUAL DIFF REQ NO Normal [facility] Comment on above: Performed By: #### C BC ####[facility] Hbozxqmhyg[address] [place], [place] [address]DrKianna Tripathi MCH (RBC) [Entitic mass] 30.5 pg Normal 26.7-34.0 [facility] Comment on above: Performed By: #### C BC ####[facility] [address]wzkiol[address] [place] [id number]. Airam Deuce MCHC (RBC) [Mass/Vol] 31.1 g/dL Normal 29.9-35.2 [facility] Comment on above: Performed By: #### C BC ####[facility] Mosnnpjbde49[address] [place] [id number] Tripathi MCV (RBC) [Entitic vol] 98.2 fL Normal 81.0-99.0 [facility] Comment on above: Performed By: #### C BC ####[facility] Rqlwhthqdw[address] [place], [place] [address]Dr. Airam Tripathi MONO # 0.5 103/ul Normal 0.3-0.8 [facility] Comment on above: Performed By: #### C BC ####[facility] Roxucdkijr4[address] [place], [place] [address]Dr. Airam Tripathi Monocytes/100 WBC (Bld) 7.3 % Normal 1.7-12.0 [facility] Comment on above: Performed By: #### C BC ####[facility] Arznnjjqnw[address] [place], [place] [address]Dr. Airam Tripathi NEUT # 4.7 103/ul Normal 1.4-6.5 [facility] Comment on above: Performed By: #### C BC ####[facility] Gqpxaebodd[address] [place], [place] [address]DrKianna Tripathi Neutrophils/100 WBC (Bld) 67.4 % Normal 43.0-75.0 [facility] Comment on above: Performed By: #### C BC ####[facility] [address] [place], [place] [id number] Tripathi Platelet mean volume (Bld) [Entitic vol] 9.5 fL Normal 9.5-13.5 [facility] Comment on above: Performed By: #### C BC ####[facility] S[address]jaubjob[address] [place], [place] [id number]. Airam Tripathi PLT 273 103/ul Normal 150-450 [facility] Comment on above: Performed By: #### C BC ####[facility] E[address]mfxggap[address] [place] [address]Dr. Airam Tripathi RBC 3.31 106/ul Critically low 4.20-5.40 [facility] Comment on above: Performed By: #### C BC ####[facility] Fbkgzrglal[address] [place] [address]Dr. Airam Tripathi WBC 7.0 103/ul Normal 4.0-11.0 [facility] Comment on above: Performed By: #### C BC ####[facility] Pthzhcfaqp70[address] [place] [address]Dr. Airam Tripathi PROF 14(COMP METB)on 022 Albumin [Mass/Vol] 3.4 g/dL Normal 3.4-5.0 [facility] Comment on above: Performed By: #### C MP ####[facility] Nigerixqrt2699[address] [place], [place] [address]Dr. Airam Tripathi Albumin/Globulin [Mass ratio] 1.1 {ratio} Normal [facility] Comment on above: Performed By: #### C MP ####[facility] Vfqvqexnoi[address] [place], [place] [address]Dr. iAram Tripathi ALP [Catalytic activity/Vol] 107 U/L Normal 46-116 [facility] Comment on above: Performed By: #### C MP ####[facility] Emcyhpnzeo[address] [place], [place] [address]Dr. Airam Tripathi ALT [Catalytic activity/Vol] 22 U/L Normal 14-59 [facility] Comment on above: Performed By: #### C MP ####[facility] [address]qvqwclx[address] [place] [address]Dr. Airam Tripathi Anion gap [Moles/Vol] 6.8 mmol/L Normal [facility] Comment on above: Performed By: #### C MP ####[facility] Rcrrodrgvy[address] [place] [address]Dr. Airam Tripathi AST [Catalytic activity/Vol] 23 U/L Normal 15-37 [facility] Comment on above: Performed By: #### C MP ####[facility] [address]lebzjvfur[address] [place] [id number]. Airam Tripathi Bilirubin [Mass/Vol] 0.2 mg/dL Normal 0.2-1.0 [facility] Comment on above: Performed By: #### C MP ####[facility] Appzsfavdb[address] [place] [address]Dr. Airam Tripathi Calcium [Mass/Vol] 8.4 mg/dL Critically low 8.5-10.1 [facility] Comment on above: Performed By: #### C MP ####[facility] [address]xtfplfz[address] [place], [place] [address]Dr. Airam Tripathi Chloride [Moles/Vol] 100 mmol/L Normal 98-107 [facility] Comment on above: Performed By: #### C MP ####[facility] Dfnkubvsta[address] [place], [place] [address]Dr. Airam Tripathi CO2 [Moles/Vol] 29.9 mmol/L Normal 21.0-32.0 [facility] Comment on above: Performed By: #### C MP ####[facility] [address]vjwtuwri[address] [place], [place] [address]Dr. Airam Tripathi Creatinine [Mass/Vol] 1.20 mg/dL Critically high 0.55-1.02 [facility] Comment on above: Performed By: #### C MP ####[facility] Vqlatvhiee[address] [place], [place] [address]Dr. Airam Tripathi EGFR-AF VENEZUELAN 56 mL/min/1.73m2 Critically low >=60 [facility] Comment on above: Performed By: #### C MP ####[facility] Ajeeswhzfe[address] [place], [place] [address]Dr. Airam Tripathi EGFR-NON AF VENEZUELAN 46 mL/min/1.73m2 Critically low >=60 [facility] Comment on above: Performed By: #### C MP ####[facility] Uxxtqukitz[address] [place], [place] [address]Dr. Airam Tripathi Globulin (S) [Mass/Vol] 3.0 g/dL Normal [facility] Comment on above: Performed By: #### C MP ####[facility] Mamlegsnls[address] [place] [address]Dr. Airam Tripathi Glucose [Mass/Vol] 57 mg/dL Critically low 74-106 [facility] Comment on above: Performed By: #### C MP ####[facility] Ktydeovzsn[address] [place] [address]Dr. Airam Tripathi Potassium [Moles/Vol] 3.7 mmol/L Normal 3.5-5.1 [facility] Comment on above: Performed By: #### C MP ####[facility] Hgrvyqlqhf75[address] [place] [address]Dr. Airam Tripathi Protein [Mass/Vol] 6.4 g/dL Normal 6.4-8.2 [facility] Comment on above: Performed By: #### C MP ####[facility] Evsywhtsfl255[address] [place], [place] [address]Dr. Airam Tripathi Sodium [Moles/Vol] 133 mmol/L Critically low 136-145 Th [facility] Comment on above: Performed By: #### C MP ####[facility] Yjzksbbbsd04[address] [place], [place] [address]Dr. Airam Tripathi Urea nitrogen [Mass/Vol] 39.0 mg/dL Critically high 7.0-18.0 [facility] Comment on above: Performed By: #### C MP ####[facility] Fpnjbntfls[address] [place], [place] [address]Dr. Airam Tripathi Urea nitrogen/Creatinine [Mass ratio] 32.5 mg/mg Normal [facility] Comment on above: Performed By: #### C MP ####[facility] Q[address]qohpxkdu[address] [place], [place] [address]Dr. Airam Tripathi OSMOLALITYon 03-24-2022 Osmolality [Osmolality] 285 mosm/kg Normal 275-295 [facility] Comment on above: Performed By: #### O SMO ####[facility] Yoflkopotn[address] [place], [place] [address]Dr. Airam Tripathi CBC AUTO DIFFon 03-22-2022 BASO # 0.0 103/ul Normal 0.0-0.1 [facility] Comment on above: Performed By: #### C BC ####[facility] Xbmflefcbl45[address] [place] [id number]. Airam Tripathi Basophils/100 WBC (Bld) 0.4 % Normal 0.2-2.0 [facility] Comment on above: Performed By: #### C BC ####[facility] [address]rbtutdhq[address] [place], [place] [address]Dr. Airam Tripathi EO # 0.2 103/ul Normal 0.0-0.7 [facility] Comment on above: Performed By: #### C BC ####[facility] N[address]hhfrsvq[address] [place], [place] [address]Dr. Airam Tripathi Eosinophils/100 WBC (Bld) 2.3 % Normal 0.9-7.0 [facility] Comment on above: Performed By: #### C BC ####[facility] I[address]qzypsvs[address] [place], [place] [address]Dr. Airam Tripathi Erythrocyte distribution width (RBC) [Ratio] 13.9 % Normal 11.0-15.0 [facility] Comment on above: Performed By: #### C BC ####[facility] Yeymekwjnf[address] [place], [place] [address]Dr. Airam Tripathi Hematocrit (Bld) [Volume fraction] 32.6 % Critically low 36.0-48.0 [facility] Center Comment on above: Performed By: #### C BC ####[facility] Zodcazvdok[address] [place], [place] [address]Dr. Airam Tripathi Hemoglobin (Bld) [Mass/Vol] 10.3 g/dL Critically low 12.0-16.0 [facility] Comment on above: Performed By: #### C BC ####[facility] Onamyaymef[address] [place], [place] [address]Dr. Airam Tripathi IG # 0.11 10e3/ul Critically high 0.00-0.03 [facility] Comment on above: Performed By: #### C BC ####[facility] Wdgeapscfk[address] [place], [place] [address]Dr. Airam Tripathi IG % 1.4 % Critically high 0.0-0.5 [facility] Comment on above: Performed By: #### C BC ####[facility] [address] [place] [address]Dr. Airam Deuce LYMPH # 1.3 103/ul Normal 1.2-3.8 [facility] Comment on above: Performed By: #### C BC ####[facility] Wk[address]zcbgku[address] [place] [address]Dr. Airam Tripathi Lymphocytes/100 WBC (Bld) 15.9 % Critically low 20.5-60.0 [facility] Comment on above: Performed By: #### C BC ####[facility] Ooepzylnha[address] [place] [address]DrKianna Tripathi MANUAL DIFF REQ NO Normal [facility] Comment on above: Performed By: #### C BC ####[facility] Oemxlqknrd[address] [place], [place] [address]Dr. Airam Tripathi MCH (RBC) [Entitic mass] 30.7 pg Normal 26.7-34.0 [facility] Comment on above: Performed By: #### C BC ####[facility] Ygfhlzdlgn[address] [place], [place] [address]Dr. Selenaneil Tripathi MCHC (RBC) [Mass/Vol] 31.6 g/dL Normal 29.9-35.2 [facility] Comment on above: Performed By: #### C BC ####[facility] Z[address]rzfdswt[address] [place], [place] [address]DrKianna Tripathi MCV (RBC) [Entitic vol] 97.0 fL Normal 81.0-99.0 [facility] Comment on above: Performed By: #### C BC ####[facility] B[address]afqjcet4[address] [place], [place] [address]DrKianna Tripathi MONO # 0.6 103/ul Normal 0.3-0.8 [facility] Comment on above: Performed By: #### C BC ####[facility] [address]im[address] [place] [address]Dr. Airam Tripathi Monocytes/100 WBC (Bld) 6.9 % Normal 1.7-12.0 [facility] Comment on above: Performed By: #### C BC ####[facility] Ebsfehhhsv[address] [place] [address]Dr. Airam Tripathi NEUT # 5.9 103/ul Normal 1.4-6.5 [facility] Comment on above: Performed By: #### C BC ####[facility] Fzvjcdnksk[address] [place] [id number] Waltersneil Deuce Neutrophils/100 WBC (Bld) 73.1 % Normal 43.0-75.0 [facility] Comment on above: Performed By: #### C BC ####[facility] Uxvplzklkd[address] [place] [address]Dr. Airam Tripathi Platelet mean volume (Bld) [Entitic vol] 9.5 fL Normal 9.5-13.5 [facility] Comment on above: Performed By: #### C BC ####[facility] S[address]fadelal[address] [place] [address]Dr. Airam Deuce PLT 313 103/ul Normal 150-450 [facility] Comment on above: Performed By: #### C BC ####[facility] Vcgdsvcckk20[address] [place], [place] [address]DrKianna Tripathi RBC 3.36 106/ul Critically low 4.20-5.40 [facility] Comment on above: Performed By: #### C BC ####[facility] Pbggxbwrws[address] [place] [address]DrKianna Tripathi WBC 8.1 103/ul Normal 4.0-11.0 [facility] Comment on above: Performed By: #### C BC ####[facility] Grqibpzmko[address] [place] [id number] Tripathi PROF 14(COMP METB)on 022 Albumin [Mass/Vol] 3.3 g/dL Critically low 3.4-5.0 [facility] Comment on above: Performed By: #### C MP ####[facility] Pyrhfkontd[address] [place] [address]DrKianna Tripathi Albumin/Globulin [Mass ratio] 1.0 {ratio} Normal [facility] Comment on above: Performed By: #### C MP ####[facility] Iepewvluml[address] [place] [address]Dr. Airam Deuce ALP [Catalytic activity/Vol] 113 U/L Normal 46-116 [facility] Comment on above: Performed By: #### C MP ####[facility] Iymzmkhskz[address] [place] [address]Dr. Selenaneil Deuce ALT [Catalytic activity/Vol] 21 U/L Normal 14-59 [facility] Comment on above: Performed By: #### C MP ####[facility] Tseydjoyex[address] [place], [place] [address]Dr. Airam Tripathi Anion gap [Moles/Vol] 12.2 mmol/L Normal Th [facility] Comment on above: Performed By: #### C MP ####[facility] Gqronvemxj12[address] [place], [place] [address]Dr. Airam Tripathi AST [Catalytic activity/Vol] 21 U/L Normal 15-37 [facility] Comment on above: Performed By: #### C MP ####[facility] Klgvycqsgn852[address] [place], [place] [address]Dr. Airam Tripathi Bilirubin [Mass/Vol] 0.2 mg/dL Normal 0.2-1.0 [facility] Comment on above: Performed By: #### C MP ####[facility] Mjjjthflrj7[address] [place], [place] [address]Dr. Airam Tripathi Calcium [Mass/Vol] 8.4 mg/dL Critically low 8.5-10.1 [facility] Comment on above: Performed By: #### C MP ####[facility] Zsnjyhragf[address] [place], [place] [address]Dr. Airam Tripathi Chloride [Moles/Vol] 103 mmol/L Normal 98-107 [facility] Comment on above: Performed By: #### C MP ####[facility] Xrzuknukfc[address] [place], [place] [address]Dr. Airam Tripathi CO2 [Moles/Vol] 24.4 mmol/L Normal 21.0-32.0 [facility] Comment on above: Performed By: #### C MP ####[facility] Djemlnfith[address] [place] [address]Dr. Airam Tripathi Creatinine [Mass/Vol] 1.11 mg/dL Critically high 0.55-1.02 [facility] Comment on above: Performed By: #### C MP ####[facility] Kdmmizhvxv[address] [place] [address]Dr. Airam Deuce EGFR-AF VENEZUELAN >60 Normal >=60 [facility] Comment on above: Performed By: #### C MP ####[facility] Eidgykesok[address] [place] [address]Dr. Airam Deuce EGFR-NON AF VENEZUELAN 50 mL/min/1.73m2 Critically low >=60 [facility] Comment on above: Performed By: #### C MP ####[facility] Qczkkpheoa0813[address] [place], [place] [address]Dr. Selenaneil Tripathi Globulin (S) [Mass/Vol] 3.2 g/dL Normal [facility] Comment on above: Performed By: #### C MP ####[facility] Ttqzokzeml[address] [place], [place] [address]Dr. Airam Deuce Glucose [Mass/Vol] 84 mg/dL Normal 74-106 [facility] Comment on above: Performed By: #### C MP ####[facility] Zdkhjzmjsf[address] [place], [place] [address]Dr. Airam Tripathi Potassium [Moles/Vol] 4.6 mmol/L Normal 3.5-5.1 [facility] Comment on above: Performed By: #### C MP ####[facility] Oamowqrahu7524[address] [place], [place] [address]Dr. Airam Tripathi Protein [Mass/Vol] 6.5 g/dL Normal 6.4-8.2 [facility] Comment on above: Performed By: #### C MP ####[facility] Brokvxdlqo[address] [place], [place] [address]Dr. Airam Tripathi Sodium [Moles/Vol] 135 mmol/L Critically low 136-145 Th [facility] Comment on above: Performed By: #### C MP ####[facility] Dwpuwophtr[address] [place] [address]Dr. Airam Tripathi Urea nitrogen [Mass/Vol] 39.0 mg/dL Critically high 7.0-18.0 [facility] Comment on above: Performed By: #### C MP ####[facility] Ecfedterdg[address]40[address] [place], [place] [address]Dr. Airam Tripathi Urea nitrogen/Creatinine [Mass ratio] 35.1 mg/mg Normal [facility] Comment on above: Performed By: #### C MP ####[facility] Zpnbasrdmm033[address] [place], [place] [address]Dr. Airam Tripathi OSMOLALITYon 03-17-2022 Osmolality [Osmolality] 277 mosm/kg Normal 275-295 [facility] Comment on above: Performed By: #### O SMO ####[facility] Wikegbjdfr[address] [place], [place] [address]Dr. Airam Tripathi CBC AUTO DIFFon 03-15-2022 BASO # 0.0 103/ul Normal 0.0-0.1 [facility] Comment on above: Performed By: #### C BC ####[facility] Hubqzdzygo[address] [place], [place] [address]Dr. Airam Tripathi Basophils/100 WBC (Bld) 0.4 % Normal 0.2-2.0 [facility] Comment on above: Performed By: #### C BC ####[facility] Mtjpwkiexo[address] [place], [place] [address]Dr. Airam Tripathi EO # 0.1 103/ul Normal 0.0-0.7 [facility] Comment on above: Performed By: #### C BC ####[facility] Konddiudmz0614[address] [place], [place] [address]Dr. Airam Tripathi Eosinophils/100 WBC (Bld) 2.4 % Normal 0.9-7.0 [facility] Comment on above: Performed By: #### C BC ####[facility] Fpsbvbcyze27[address] [place], [place] [address]Dr. Airam Tripathi Erythrocyte distribution width (RBC) [Ratio] 13.9 % Normal 11.0-15.0 [facility] Comment on above: Performed By: #### C BC ####[facility] Dojihnpoph[address] [place] [address]DrKianna Airam Tripathi Hematocrit (Bld) [Volume fraction] 31.2 % Critically low 36.0-48.0 [facility] Comment on above: Performed By: #### C BC ####[facility] Mpxctmcahf[address] [place] [address]DrKianna Tripathi Hemoglobin (Bld) [Mass/Vol] 9.9 g/dL Critically low 12.0-16.0 [facility] Comment on above: Performed By: #### C BC ####[facility] Txelqzqhlw264[address] [place], [place] [address]DrKianna Tripathi IG # 0.03 10e3/ul Normal 0.00-0.03 [facility] Comment on above: Performed By: #### C BC ####[facility] Drkxouhnrg0154[address] [place], [place] [address]DrKianna Tripathi IG % 0.6 % Critically high 0.0-0.5 [facility] Comment on above: Performed By: #### C BC ####[facility] Fqjzxodezz35[address] [place], [place] [address]DrKianna Tripathi LYMPH # 1.5 103/ul Normal 1.2-3.8 [facility] Comment on above: Performed By: #### C BC ####[facility] Npzewaynym[address] [place], [place] [address]DrKianna Tripathi Lymphocytes/100 WBC (Bld) 29.4 % Normal 20.5-60.0 [facility] Comment on above: Performed By: #### C BC ####[facility] Payfpltbjn[address]20[address] [place], [place] [address]DrKianna Tripathi MANUAL DIFF REQ NO Normal [facility] Comment on above: Performed By: #### C BC ####[facility] Btrfzcyehz6[address] [place], [place] [address]DrKianna Tripathi MCH (RBC) [Entitic mass] 30.5 pg Normal 26.7-34.0 [facility] Comment on above: Performed By: #### C BC ####[facility] Arniouwdgp[address] [place] [id number]. Airam Decue MCHC (RBC) [Mass/Vol] 31.7 g/dL Normal 29.9-35.2 [facility] Comment on above: Performed By: #### C BC ####[facility] Gyvvqqeqmt7[address] [place] [id number] Tripathi MCV (RBC) [Entitic vol] 96.0 fL Normal 81.0-99.0 [facility] Comment on above: Performed By: #### C BC ####[facility] Jlabogchva[address] [place], [place] [address]DrKianna Tripathi MONO # 0.4 103/ul Normal 0.3-0.8 [facility] Comment on above: Performed By: #### C BC ####[facility] Oghcmmesth0317[address] [place], [place] [address]Dr. Airam Tripathi Monocytes/100 WBC (Bld) 7.0 % Normal 1.7-12.0 [facility] Comment on above: Performed By: #### C BC ####[facility] Ckyqvowpoo[address] [place], [place] [address]Dr. Airam Tripathi NEUT # 3.0 103/ul Normal 1.4-6.5 [facility] Comment on above: Performed By: #### C BC ####[facility] Usctlbnhuo3267[address] [place], [place] [address]Dr. Airam Tripathi Neutrophils/100 WBC (Bld) 60.2 % Normal 43.0-75.0 [facility] Comment on above: Performed By: #### C BC ####[facility] Ubwmcwehpn6[address] [place], [place] [address]DrKianna Tripathi Platelet mean volume (Bld) [Entitic vol] 9.6 fL Normal 9.5-13.5 [facility] Comment on above: Performed By: #### C BC ####[facility] Metfbdrjel[address] [place], [place] [address]DrKianna Tripathi PLT 258 103/ul Normal 150-450 [facility] Comment on above: Performed By: #### C BC ####[facility] Tpedkyrazq53[address] [place] [phone]. Airam Tripathi RBC 3.25 106/ul Critically low 4.20-5.40 [facility] Comment on above: Performed By: #### C BC ####[facility] Arbzexjqte8818 [place] [phone]. Airam Tripathi WBC 5.0 103/ul Normal 4.0-11.0 [facility] Comment on above: Performed By: #### C BC ####[facility] Vyzeqsnfpz73[address] [place] [address]Dr. Airam Tripathi PROF 14(COMP METB)on 022 Albumin [Mass/Vol] 3.3 g/dL Critically low 3.4-5.0 [facility] Comment on above: Performed By: #### C MP ####[facility] Nqjxefywmf75[address] [place] [address]Dr. Airam Tripathi Albumin/Globulin [Mass ratio] 1.1 {ratio} Normal [facility] Comment on above: Performed By: #### C MP ####[facility] Wlnbukilyj99[address] [place] [address]Dr. Airam Tripathi ALP [Catalytic activity/Vol] 106 U/L Normal 46-116 [facility] Comment on above: Performed By: #### C MP ####[facility] Fkhzdnpqkn12[address] [place] [address]Dr. Airam Tripathi ALT [Catalytic activity/Vol] 22 U/L Normal 14-59 [facility] Comment on above: Performed By: #### C MP ####[facility] Kqecrgkana29[address] [place] [phone]. Airam Tripathi Anion gap [Moles/Vol] 11.4 mmol/L Normal [facility] Comment on above: Performed By: #### C MP ####[facility] Cwcyhkycue[address] [place] [address]Dr. Airam Tripathi AST [Catalytic activity/Vol] 22 U/L Normal 15-37 [facility] Comment on above: Performed By: #### C MP ####[facility] Cflcghsrio9856 [place] [id number]. Airam Tripathi Bilirubin [Mass/Vol] 0.3 mg/dL Normal 0.2-1.0 [facility] Comment on above: Performed By: #### C MP ####[facility] Goxmdvmylx0341 [place] [id number]. Airam Tripathi Calcium [Mass/Vol] 8.1 mg/dL Critically low 8.5-10.1 Th [facility] Comment on above: Performed By: #### C MP ####[facility] Fclpagaxji03[address] [place], [place] [address]Dr. Airam Tripathi Chloride [Moles/Vol] 100 mmol/L Normal 98-107 [facility] Comment on above: Performed By: #### C MP ####[facility] Ypqqifuqqw3339[address] [place], [place] [address]Dr. Airam Tripathi CO2 [Moles/Vol] 25.6 mmol/L Normal 21.0-32.0 [facility] Comment on above: Performed By: #### C MP ####[facility] Refrkpwfmp08[address] [place], [place] [address]Dr. Airam Tripathi Creatinine [Mass/Vol] 1.21 mg/dL Critically high 0.55-1.02 [facility] Comment on above: Performed By: #### C MP ####[facility] Pwwzglydhg05[address] [place], [place] [address]Dr. Airam Deuce EGFR-AF VENEZUELAN 55 mL/min/1.73m2 Critically low >=60 [facility] Comment on above: Performed By: #### C MP ####[facility] Uvljurkhkw70[address] [place] [id number]. Airam Deuce EGFR-NON AF VENEZUELAN 45 mL/min/1.73m2 Critically low >=60 [facility] Comment on above: Performed By: #### C MP ####[facility] Pkmdqedgpg[address] [place], [place] [address]Dr. Airam Deuce Globulin (S) [Mass/Vol] 3.0 g/dL Normal [facility] Comment on above: Performed By: #### C MP ####[facility] Xxabvmrinh65[address] [place] [address]Dr. Airam Tripathi Glucose [Mass/Vol] 84 mg/dL Normal 74-106 [facility] Comment on above: Performed By: #### C MP ####[facility] Ooqqdppilz[address] [place] [address]Dr. Airam Tripathi Potassium [Moles/Vol] 4.0 mmol/L Normal 3.5-5.1 [facility] Comment on above: Performed By: #### C MP ####[facility] Migygsqlid6894 [place] [address]Dr. Airam Tripathi Protein [Mass/Vol] 6.3 g/dL Critically low 6.4-8.2 Th [facility] Comment on above: Performed By: #### C MP ####[facility] Qxpshblosz9344[address] [place], [place] [address]Dr. Airam Tripathi Sodium [Moles/Vol] 133 mmol/L Critically low 136-145 Th [facility] Comment on above: Performed By: #### C MP ####[facility] Iydtjlpknl8[address] [place], [place] [address]Dr. Airam Deuce Urea nitrogen [Mass/Vol] 29.0 mg/dL Critically high 7.0-18.0 [facility] Comment on above: Performed By: #### C MP ####[facility] Xlgwlaxzxg8490[address] [place], [place] [address]Dr. Airam Deuce Urea nitrogen/Creatinine [Mass ratio] 24.0 mg/mg Normal [facility] Comment on above: Performed By: #### C MP ####[facility] Zeahfyzbip007[address] [place], [place] [address]Dr. Airam Deuce OSMOLALITYon 03-12-2022 Osmolality [Osmolality] 285 mosm/kg Normal 275-295 [facility] Comment on above: Performed By: #### O SMO ####[facility] Wlsbbeylez1787[address] [place], [place] [address]Dr. Airam Deuce CBC AUTO DIFFon 03-10-2022 BASO # 0.0 103/ul Normal 0.0-0.1 [facility] Comment on above: Performed By: #### C BC ####[facility] Zwjgybymtt[address] [place], [place] [address]Dr. Airam Deuce Basophils/100 WBC (Bld) 0.3 % Normal 0.2-2.0 [facility] Comment on above: Performed By: #### C BC ####[facility] Ucausynchm[address] [place], [place] [address]Dr. Airam Tripathi EO # 0.2 103/ul Normal 0.0-0.7 [facility] Comment on above: Performed By: #### C BC ####[facility] Yjjdwcfskg7147[address] [place], [place] [address]Dr. Airam Tripathi Eosinophils/100 WBC (Bld) 2.7 % Normal 0.9-7.0 [facility] Comment on above: Performed By: #### C BC ####[facility] Auhdtprtvw1867[address] [place], [place] [address]Dr. Airam Tripathi Erythrocyte distribution width (RBC) [Ratio] 14.4 % Normal 11.0-15.0 [facility] Comment on above: Performed By: #### C BC ####[facility] Xikzpfnspw1138[address] [place], [place] [address]Dr. Airam Deuce Hematocrit (Bld) [Volume fraction] 32.5 % Critically low 36.0-48.0 [facility] Comment on above: Performed By: #### C BC ####[facility] Zdvbbzmoua0907[address] [place], [place] [address]Dr. Airam Deuce Hemoglobin (Bld) [Mass/Vol] 10.1 g/dL Critically low 12.0-16.0 [facility] Comment on above: Performed By: #### C BC ####[facility] Zdwuyzucha[address]17[address] [place], [place] [address]Dr. Airam Tripathi IG # 0.03 10e3/ul Normal 0.00-0.03 [facility] Comment on above: Performed By: #### C BC ####[facility] Iuzyrgwgfo360[address] [place], [place] [address]Dr. Airam Tripathi IG % 0.4 % Normal 0.0-0.5 [facility] Comment on above: Performed By: #### C BC ####[facility] [address]emdvxbqjl[address] [place] [address]Dr. Airam Deuce LYMPH # 1.4 103/ul Normal 1.2-3.8 [facility] Comment on above: Performed By: #### C BC ####[facility] Dvuqgypfpj75[address] [place] [address]Dr. Selenaneil Tripathi Lymphocytes/100 WBC (Bld) 19.4 % Critically low 20.5-60.0 [facility] Comment on above: Performed By: #### C BC ####[facility] Rscenikoam9501[address] [place], [place] [address]Dr. Selenaneil Tripathi MANUAL DIFF REQ NO Normal [facility] Comment on above: Performed By: #### C BC ####[facility] Susmjeclnr[address] [place], [place] [address]Dr. Airam Deuce MCH (RBC) [Entitic mass] 30.6 pg Normal 26.7-34.0 [facility] Comment on above: Performed By: #### C BC ####[facility] Xncaukwxuo8576[address] [place], [place] [address]Dr. Airam Tripathi MCHC (RBC) [Mass/Vol] 31.1 g/dL Normal 29.9-35.2 [facility] Comment on above: Performed By: #### C BC ####[facility] Cplubfitzh[address] [place], [place] [address]Dr. Selenaneil Tripathi MCV (RBC) [Entitic vol] 98.5 fL Normal 81.0-99.0 [facility] Comment on above: Performed By: #### C BC ####[facility] Akjvqdabnc312[address] [place], [place] [address]Dr. Airam Tripathi MONO # 0.5 103/ul Normal 0.3-0.8 [facility] Comment on above: Performed By: #### C BC ####[facility] Fmyydgcrdi404[address] [place], [place] [address]Dr. Airam Tripathi Monocytes/100 WBC (Bld) 6.7 % Normal 1.7-12.0 [facility] Comment on above: Performed By: #### C BC ####[facility] Uvmoqvqnei[address] [place] [address]Dr. Selenaneil Tripathi NEUT # 5.2 103/ul Normal 1.4-6.5 [facility] Comment on above: Performed By: #### C BC ####[facility] Dvoqfbvimn[address] [place] [address]Dr. Airam Tripathi Neutrophils/100 WBC (Bld) 70.5 % Normal 43.0-75.0 [facility] Comment on above: Performed By: #### C BC ####[facility] Uqwgsuigue47[address] [place] [address]Dr. Aiarm Tripathi Platelet mean volume (Bld) [Entitic vol] 9.8 fL Normal 9.5-13.5 [facility] Comment on above: Performed By: #### C BC ####[facility] Wyrzoengat[address] [place], [place] [address]Dr. Airam Tripathi PLT 277 103/ul Normal 150-450 [facility] Comment on above: Performed By: #### C BC ####[facility] Bmqhcpxghf9[address] [place], [place] [address]Dr. Airam Tripathi RBC 3.30 106/ul Critically low 4.20-5.40 [facility] Comment on above: Performed By: #### C BC ####[facility] Fzmhhxbnqb[address] [place], [place] [address]Dr. Airam Tripathi WBC 7.4 103/ul Normal 4.0-11.0 [facility] Comment on above: Performed By: #### C BC ####[facility] Mrnoriuavx4[address] [place] [id number] Tripathi PROF 14(COMP METB)on 022 Albumin [Mass/Vol] 3.6 g/dL Normal 3.4-5.0 [facility] Comment on above: Performed By: #### C MP ####[facility] V[address]lgfgxq[address] [place], [place] [address]DrKianna Tripathi Albumin/Globulin [Mass ratio] 1.1 {ratio} Normal [facility] Comment on above: Performed By: #### C MP ####[facility] [address] [place] [address]Dr. Airam Tripathi ALP [Catalytic activity/Vol] 112 U/L Normal 46-116 [facility] Comment on above: Performed By: #### C MP ####[facility] Gibqcjpbdm[address] [place] [address]Dr. Airam Deuce ALT [Catalytic activity/Vol] 26 U/L Normal 14-59 [facility] Comment on above: Performed By: #### C MP ####[facility] Ybxtugngtx[address] [place], [place] [address]Dr. Airam Tripathi Anion gap [Moles/Vol] 12.0 mmol/L Normal [facility] Comment on above: Performed By: #### C MP ####[facility] Nkdysnbkvh[address] [place], [place] [address]Dr. Selenaneil Tripathi AST [Catalytic activity/Vol] 25 U/L Normal 15-37 [facility] Comment on above: Performed By: #### C MP ####[facility] Rmvvtttoul[address] [place], [place] [address]Dr. Selenaneil Deuce Bilirubin [Mass/Vol] 0.4 mg/dL Normal 0.2-1.0 [facility] Comment on above: Performed By: #### C MP ####[facility] Sbmwvlzzlq[address] [place], [place] [address]Dr. Airam Tripathi Calcium [Mass/Vol] 8.9 mg/dL Normal 8.5-10.1 [facility] Comment on above: Performed By: #### C MP ####[facility] Lpimwtdrqf[address] [place], [place] [address]Dr. Airam Tripathi Chloride [Moles/Vol] 101 mmol/L Normal 98-107 [facility] Comment on above: Performed By: #### C MP ####[facility] Majqotijsp[address] [place], [place] [address]Dr. Airam Tripathi CO2 [Moles/Vol] 24.0 mmol/L Normal 21.0-32.0 [facility] Comment on above: Performed By: #### C MP ####[facility] Hfggpvrxen[address] [place] [id number]. Airam Tripathi Creatinine [Mass/Vol] 1.51 mg/dL Critically high 0.55-1.02 [facility] Comment on above: Performed By: #### C MP ####[facility] Sijqvqpfqs[address] [place] [id number]. Airam Tripathi EGFR-AF VENEZUELAN 43 mL/min/1.73m2 Critically low >=60 [facility] Comment on above: Performed By: #### C MP ####[facility] Halbagnyrp[address] [place] [id number]. Airam Deuce EGFR-NON AF VENEZUELAN 35 mL/min/1.73m2 Critically low >=60 [facility] Comment on above: Performed By: #### C MP ####[facility] Sulmajfbgi[address] [place] [address]Dr. Airam Tripathi Globulin (S) [Mass/Vol] 3.2 g/dL Normal [facility] Comment on above: Performed By: #### C MP ####[facility] Inzcxbimnp7[address] [place] [address]Dr. Airam Tripathi Glucose [Mass/Vol] 82 mg/dL Normal 74-106 [facility] Comment on above: Performed By: #### C MP ####[facility] Dvidzpuylk[address] [place] [address]Dr. Airam Tripathi Potassium [Moles/Vol] 4.0 mmol/L Normal 3.5-5.1 [facility] Comment on above: Performed By: #### C MP ####[facility] Vlbstwkqel07[address] [place] [id number]. Airam Tripathi Protein [Mass/Vol] 6.8 g/dL Normal 6.4-8.2 [facility] Comment on above: Performed By: #### C MP ####[facility] Mvfozbfker[address] [place] [address]Dr. Airam Tripathi Sodium [Moles/Vol] 133 mmol/L Critically low 136-145 [facility] Comment on above: Performed By: #### C MP ####[facility] Wesmmlzlzw[address] [place] [address]Dr. Airam Tripathi Urea nitrogen [Mass/Vol] 37.0 mg/dL Critically high 7.0-18.0 [facility] Comment on above: Performed By: #### C MP ####[facility] Pirhbhmkef[address] [place], [place] [address]Dr. Airam Tripathi Urea nitrogen/Creatinine [Mass ratio] 24.5 mg/mg Normal [facility] Comment on above: Performed By: #### C MP ####[facility] Gckvyojqua[address] [place], [place] [address]Dr. Airam Tripathi OSMOLALITYon 03-07-2022 Osmolality [Osmolality] 284 mosm/kg Normal 275-295 [facility] Comment on above: Performed By: #### O SMO ####[facility] Boqmlrnkgf56[address] [place], [place] [address]Dr. Airam Tripathi CBC AUTO DIFFon 03-04-2022 BASO # 0.0 103/ul Normal 0.0-0.1 [facility] Comment on above: Performed By: #### C BC ####[facility] Koiijcaqjw[address] [place], [place] [address]Dr. Airam Tripathi Basophils/100 WBC (Bld) 0.3 % Normal 0.2-2.0 [facility] Comment on above: Performed By: #### C BC ####[facility] Zzodmvcuva[address] [place], [place] [address]Dr. Airam Tripathi EO # 0.1 103/ul Normal 0.0-0.7 [facility] Comment on above: Performed By: #### C BC ####[facility] Rewnsgyscw2274[address] [place], [place] [address]Dr. Airam Deuce Eosinophils/100 WBC (Bld) 2.0 % Normal 0.9-7.0 [facility] Comment on above: Performed By: #### C BC ####[facility] Bjwopibrlf888[address] [place], [place] [address]Dr. Airam Tripathi Erythrocyte distribution width (RBC) [Ratio] 14.5 % Normal 11.0-15.0 [facility] Comment on above: Performed By: #### C BC ####[facility] Cybxjzsbcx[address] [place] [address]Dr. Airam Tripathi Hematocrit (Bld) [Volume fraction] 35.4 % Critically low 36.0-48.0 [facility] Comment on above: Performed By: #### C BC ####[facility] Ulzijhiwhh[address] [place] [address]DrKianna Tripathi Hemoglobin (Bld) [Mass/Vol] 11.0 g/dL Critically low 12.0-16.0 [facility] Comment on above: Performed By: #### C BC ####[facility] Fvtcsrnyjh62[address] [place], [place] [address]DrKianna Tripathi IG # 0.03 10e3/ul Normal 0.00-0.03 [facility] Comment on above: Performed By: #### C BC ####[facility] Zezvztuygp8[address] [place], [place] [address]Dr. Airam Tripathi IG % 0.4 % Normal 0.0-0.5 [facility] Comment on above: Performed By: #### C BC ####[facility] Anmtlmsvrr14[address] [place], [place] [address]DrKianna Tripathi LYMPH # 1.7 103/ul Normal 1.2-3.8 [facility] Comment on above: Performed By: #### C BC ####[facility] Dlcmeoybab[address] [place], [place] [address]DrKianna Tripathi Lymphocytes/100 WBC (Bld) 23.8 % Normal 20.5-60.0 [facility] Comment on above: Performed By: #### C BC ####[facility] Ffhgmfidkx2067[address] [place], [place] [address]DrKianna Tripathi MANUAL DIFF REQ NO Normal [facility] Comment on above: Performed By: #### C BC ####[facility] Ipwzxkozoz4144[address] [place], [place] [address]Dr. Airam Tripathi MCH (RBC) [Entitic mass] 30.0 pg Normal 26.7-34.0 [facility] Comment on above: Performed By: #### C BC ####[facility] Efrucihmee[address] [place] [address]Dr. Airam Tripathi MCHC (RBC) [Mass/Vol] 31.1 g/dL Normal 29.9-35.2 [facility] Comment on above: Performed By: #### C BC ####[facility] Z[address]spmajnj[address] [place] [address]Dr. Airam Tripathi MCV (RBC) [Entitic vol] 96.5 fL Normal 81.0-99.0 [facility] Comment on above: Performed By: #### C BC ####[facility] Yvazcsamcd[address] [place], [place] [address]Dr. Airam Tripathi MONO # 0.5 103/ul Normal 0.3-0.8 [facility] Comment on above: Performed By: #### C BC ####[facility] Rzaguevrjr6816[address] [place], [place] [address]Dr. Airam Tripathi Monocytes/100 WBC (Bld) 6.6 % Normal 1.7-12.0 [facility] Comment on above: Performed By: #### C BC ####[facility] Jlahbekbsw[address] [place], [place] [address]Dr. Airam Tripathi NEUT # 4.7 103/ul Normal 1.4-6.5 [facility] Comment on above: Performed By: #### C BC ####[facility] Pduwenvddx[address] [place], [place] [address]Dr. Airam Tripathi Neutrophils/100 WBC (Bld) 66.9 % Normal 43.0-75.0 [facility] Comment on above: Performed By: #### C BC ####[facility] Yzvrtataxk4[address] [place], [place] [address]Dr. Airam Tripathi Platelet mean volume (Bld) [Entitic vol] 10.2 fL Normal 9.5-13.5 [facility] Comment on above: Performed By: #### C BC ####[facility] Abevcvjfib9360[address] [place], [place] [address]Dr. Airam Tripathi PLT 270 103/ul Normal 150-450 [facility] Comment on above: Performed By: #### C BC ####[facility] [address]owqxbb[address] [place] [address]Dr. Selenaneil Deuce RBC 3.67 106/ul Critically low 4.20-5.40 [facility] Comment on above: Performed By: #### C BC ####[facility] Inlyeujgwt[address] [place] [id number]. Airam Tripathi WBC 7.0 103/ul Normal 4.0-11.0 [facility] Comment on above: Performed By: #### C BC ####[facility] Zpscvgzldc08[address] [place] [address]DrKianna Tripathi PROF 14(COMP METB)on 022 Albumin [Mass/Vol] 3.3 g/dL Critically low 3.4-5.0 [facility] Comment on above: Performed By: #### C MP ####[facility] Sfqwgqdsjv[address] [place] [address]DrKianna Tripathi Albumin/Globulin [Mass ratio] 1.0 {ratio} Normal [facility] Comment on above: Performed By: #### C MP ####[facility] Jqlapyhxod35[address] [place] [address]DrKianna Tripathi ALP [Catalytic activity/Vol] 107 U/L Normal 46-116 [facility] Comment on above: Performed By: #### C MP ####[facility] Fsuixspuxx4135 [place] [address]DrKianna Tripathi ALT [Catalytic activity/Vol] 23 U/L Normal 14-59 [facility] Comment on above: Performed By: #### C MP ####[facility] Xjonzhujbl1416 [place] [id number] Tripathi Anion gap [Moles/Vol] 13.0 mmol/L Normal [facility] Comment on above: Performed By: #### C MP ####[facility] Xuhyhprjfe46[address] [place] [address]Dr. Airam Tripathi AST [Catalytic activity/Vol] 30 U/L Normal 15-37 [facility] Comment on above: Performed By: #### C MP ####[facility] Cnwhbhoigm[address] [place] [address]Dr. Airam Tripathi Bilirubin [Mass/Vol] 0.2 mg/dL Normal 0.2-1.0 [facility] Comment on above: Performed By: #### C MP ####[facility] Pgwjdoinqz5[address] [place] [address]Dr. Airam Tripathi Calcium [Mass/Vol] 8.8 mg/dL Normal 8.5-10.1 [facility] Comment on above: Performed By: #### C MP ####[facility] Vyakevsinn[address] [place], [place] [address]Dr. Airam Tripathi Chloride [Moles/Vol] 103 mmol/L Normal 98-107 [facility] Comment on above: Performed By: #### C MP ####[facility] Cuwqjlmudb[address]90[address] [place], [place] [address]Dr. Airam Tripathi CO2 [Moles/Vol] 24.9 mmol/L Normal 21.0-32.0 [facility] Comment on above: Performed By: #### C MP ####[facility] Csaqoqqxuy[address] [place], [place] [address]Dr. Airam Tripathi Creatinine [Mass/Vol] 1.06 mg/dL Critically high 0.55-1.02 [facility] Comment on above: Performed By: #### C MP ####[facility] Ixtbfyxlpt50[address] [place], [place] [address]Dr. Airam Deuce EGFR-AF VENEZUELAN >60 Normal >=60 [facility] Comment on above: Performed By: #### C MP ####[facility] Egjgcckmst9178[address] [place], [place] [address]Dr. Selenaneil Deuce EGFR-NON AF VENEZUELAN 53 mL/min/1.73m2 Critically low >=60 [facility] Comment on above: Performed By: #### C MP ####[facility] Bcgjxjbxgr32[address] [place], [place] [address]Dr. Airam Tripathi Globulin (S) [Mass/Vol] 3.2 g/dL Normal [facility] Comment on above: Performed By: #### C MP ####[facility] Qnhzizjovz364[address] [place] [address]Dr. Airam Tripathi Glucose [Mass/Vol] 91 mg/dL Normal 74-106 [facility] Comment on above: Performed By: #### C MP ####[facility] Ctotvkfyfj9816 [place] [address]Dr. Airam Tripathi Potassium [Moles/Vol] 3.9 mmol/L Normal 3.5-5.1 [facility] Comment on above: Performed By: #### C MP ####[facility] Ekwvpufcch[address] [place] [address]Dr. Airam Tripathi Protein [Mass/Vol] 6.5 g/dL Normal 6.4-8.2 [facility] Comment on above: Performed By: #### C MP ####[facility] Simyhvidra46[address] [place], [place] [address]Dr. Airam Deuce Sodium [Moles/Vol] 137 mmol/L Normal 136-145 [facility] Comment on above: Performed By: #### C MP ####[facility] Oqzncblqph36[address] [place], [place] [address]Dr. Airam Deuce Urea nitrogen [Mass/Vol] 27.0 mg/dL Critically high 7.0-18.0 [facility] Comment on above: Performed By: #### C MP ####[facility] Pnjkvyjkmd15[address] [place] [address]Dr. Selenaneil Deuce Urea nitrogen/Creatinine [Mass ratio] 25.5 mg/mg Normal [facility] Comment on above: Performed By: #### C MP ####[facility] Mjpwhzgxvp6[address] [place] [address]Dr. Selenaneil Deuce OSMOLALITYon 03-03-2022 Osmolality [Osmolality] 383 mosm/kg Invalid Interpretation Code [id number] [facility] Comment on above: Result Comment: Ve rified by repeat analysis Performed By: #### O SMO ####[facility] Uuwykngisq05[address] [place], [place] [address]Dr. Airam Tripathi CBC AUTO DIFFon 02-22-2022 BASO # 0.0 103/ul Normal 0.0-0.1 [facility] Comment on above: Performed By: #### C BC ####[facility] Sljbfkwzne6[address] [place] [address]DrKianna Tripathi Basophils/100 WBC (Bld) 0.4 % Normal 0.2-2.0 [facility] Comment on above: Performed By: #### C BC ####[facility] Nowgnuxpuj5535[address] [place], [place] [address]DrKianna Tripathi EO # 0.2 103/ul Normal 0.0-0.7 [facility] Comment on above: Performed By: #### C BC ####[facility] Jiunrrgrhz864[address] [place], [place] [address]DrKianna Tripathi Eosinophils/100 WBC (Bld) 3.9 % Normal 0.9-7.0 [facility] Comment on above: Performed By: #### C BC ####[facility] Izemfxaiws7639[address] [place], [place] [address]DrKianna Tripathi Erythrocyte distribution width (RBC) [Ratio] 13.9 % Normal 11.0-15.0 [facility] Comment on above: Performed By: #### C BC ####[facility] Bgfncdsuej05[address] [place], [place] [address]DrKianna Tripathi Hematocrit (Bld) [Volume fraction] 32.7 % Critically low 36.0-48.0 [facility] Comment on above: Performed By: #### C BC ####[facility] Dfpkgmftja999[address] [place], [place] [address]DrKianna Tripathi Hemoglobin (Bld) [Mass/Vol] 10.7 g/dL Critically low 12.0-16.0 [facility] Comment on above: Performed By: #### C BC ####[facility] Gqhjkrnnka[address] [place], [place] [address]DrKianna Tripathi IG # 0.02 10e3/ul Normal 0.00-0.03 [facility] Comment on above: Performed By: #### C BC ####[facility] Rrrjhtepwi8520[address] [place], [place] [address]Dr. Airam Tripathi IG % 0.4 % Normal 0.0-0.5 [facility] Comment on above: Performed By: #### C BC ####[facility] Vojlkrcloi[address] [place] [address]DrKianna Tripathi LYMPH # 1.2 103/ul Normal 1.2-3.8 [facility] Comment on above: Performed By: #### C BC ####[facility] Xukmyzflpk1463 [place] [address]DrKianna Tripathi Lymphocytes/100 WBC (Bld) 25.0 % Normal 20.5-60.0 [facility] Comment on above: Performed By: #### C BC ####[facility] Qiqstdmxga904[address] [place], [place] [address]DrKianna Tripathi MANUAL DIFF REQ NO Normal [facility] Comment on above: Performed By: #### C BC ####[facility] Ppibubpdrn[address] [place], [place] [address]DrKianna Tripathi MCH (RBC) [Entitic mass] 30.7 pg Normal 26.7-34.0 [facility] Comment on above: Performed By: #### C BC ####[facility] Neyrpacbwj15[address] [place], [place] [address]DrKianna Tripathi MCHC (RBC) [Mass/Vol] 32.7 g/dL Normal 29.9-35.2 [facility] Comment on above: Performed By: #### C BC ####[facility] Aqecfncohf23[address] [place], [place] [address]DrKianna Tripathi MCV (RBC) [Entitic vol] 93.7 fL Normal 81.0-99.0 [facility] Comment on above: Performed By: #### C BC ####[facility] Qhfaltfwfb854[address] [place], [place] [address]DrKianna Tripathi MONO # 0.4 103/ul Normal 0.3-0.8 [facility] Comment on above: Performed By: #### C BC ####[facility] Lruixvzhre164[address] [place], [place] [address]DrKianna Tripathi Monocytes/100 WBC (Bld) 7.5 % Normal 1.7-12.0 [facility] Comment on above: Performed By: #### C BC ####[facility] Ccoohqgwzw[address] [place] [address]Dr. Airam Tripathi NEUT # 3.1 103/ul Normal 1.4-6.5 [facility] Comment on above: Performed By: #### C BC ####[facility] Zykmildglb49[address] [place] [address]DrKianna Airam Deuce Neutrophils/100 WBC (Bld) 62.8 % Normal 43.0-75.0 [facility] Comment on above: Performed By: #### C BC ####[facility] Scpyimvzio23[address] [place] [address]DrKianna Waltersneil Deuce Platelet mean volume (Bld) [Entitic vol] 9.5 fL Normal 9.5-13.5 [facility] Comment on above: Performed By: #### C BC ####[facility] Ninkafkjze[address] [place], [place] [address]Dr. Airam Deuce PLT 250 103/ul Normal 150-450 [facility] Comment on above: Performed By: #### C BC ####[facility] Lwgkeyxtbo1810[address] [place], [place] [address]Dr. Airam Deuce RBC 3.49 106/ul Critically low 4.20-5.40 [facility] Comment on above: Performed By: #### C BC ####[facility] Oubgbcvyas[address] [place], [place] [address]DrKianna Tripathi WBC 4.9 103/ul Normal 4.0-11.0 [facility] Comment on above: Performed By: #### C BC ####[facility] Cemupoczlk[address] [place] [address]DrKianna Tripathi PROF 14(COMP METB)on 022 Albumin [Mass/Vol] 3.3 g/dL Critically low 3.4-5.0 [facility] Comment on above: Performed By: #### C MP ####[facility] Wgyveifxhc8[address] [place], [place] [address]DrKianna Tripathi Albumin/Globulin [Mass ratio] 1.0 {ratio} Normal [facility] Comment on above: Performed By: #### C MP ####[facility] Geaexhbqti[address] [place] [address]Dr. Airam Deuce ALP [Catalytic activity/Vol] 127 U/L Critically high 46-116 [facility] Comment on above: Performed By: #### C MP ####[facility] Vmvugtsill79[address] [place] [address]Dr. Airam Deuce ALT [Catalytic activity/Vol] 22 U/L Normal 14-59 [facility] Comment on above: Performed By: #### C MP ####[facility] Xynyphlckc[address] [place] [address]Dr. Selenaneil Deuce Anion gap [Moles/Vol] 11.9 mmol/L Normal [facility] Comment on above: Performed By: #### C MP ####[facility] Hstartjkda1823[address] [place], [place] [address]Dr. Airam Deuce AST [Catalytic activity/Vol] 21 U/L Normal 15-37 [facility] Comment on above: Performed By: #### C MP ####[facility] Yjckharvoz[address] [place], [place] [address]Dr. Airam Deuce Bilirubin [Mass/Vol] 0.3 mg/dL Normal 0.2-1.0 [facility] Comment on above: Performed By: #### C MP ####[facility] Molrzsdsvt79[address] [place] [address]Dr. Airam Tripathi Calcium [Mass/Vol] 8.6 mg/dL Normal 8.5-10.1 [facility] Comment on above: Performed By: #### C MP ####[facility] Cjpmbpcall7[address] [place] [address]Dr. Airam Tripathi Chloride [Moles/Vol] 105 mmol/L Normal 98-107 [facility] Comment on above: Performed By: #### C MP ####[facility] Ykgfaggoek4[address] [place] [address]Dr. Airam Tripathi CO2 [Moles/Vol] 23.6 mmol/L Normal 21.0-32.0 [facility] Comment on above: Performed By: #### C MP ####[facility] Kajobnwrdi[address] [place] [address]Dr. Airam Deuce Creatinine [Mass/Vol] 1.29 mg/dL Critically high 0.55-1.02 [facility] Comment on above: Performed By: #### C MP ####[facility] Iiaghxemee65[address] [place] [address]Dr. Airam Deuce EGFR-AF VENEZUELAN 51 mL/min/1.73m2 Critically low >=60 [facility] Comment on above: Performed By: #### C MP ####[facility] Zuksikbpau[address] [place] [address]Dr. Airam Tripathi EGFR-NON AF VENEZUELAN 42 mL/min/1.73m2 Critically low >=60 [facility] Comment on above: Performed By: #### C MP ####[facility] Izlhmdqwgy8[address] [place], [place] [address]Dr. Selenaneil Tripathi Globulin (S) [Mass/Vol] 3.2 g/dL Normal [facility] Comment on above: Performed By: #### C MP ####[facility] Wrctlnbolz[address] [place], [place] [address]Dr. Selenaneil Tripathi Glucose [Mass/Vol] 94 mg/dL Normal 74-106 [facility] Comment on above: Performed By: #### C MP ####[facility] Zcbbkfroqv9[address] [place], [place] [address]Dr. Airam Tripathi Potassium [Moles/Vol] 3.5 mmol/L Normal 3.5-5.1 [facility] Comment on above: Performed By: #### C MP ####[facility] Krmzmawsrm[address] [place], [place] [address]Dr. Airam Tripathi Protein [Mass/Vol] 6.5 g/dL Normal 6.4-8.2 [facility] Comment on above: Performed By: #### C MP ####[facility] Qdyumnsirp274[address] [place], [place] [address]Dr. Airam Tripathi Sodium [Moles/Vol] 137 mmol/L Normal 136-145 [facility] Comment on above: Performed By: #### C MP ####[facility] Wvdiwearbd66[address] [place], [place] [address]Dr. Airam Deuce Urea nitrogen [Mass/Vol] 37.0 mg/dL Critically high 7.0-18.0 [facility] Comment on above: Performed By: #### C MP ####[facility] Aslrgwimpx[address] [place], [place] [address]Dr. Airam Deuce Urea nitrogen/Creatinine [Mass ratio] 28.7 mg/mg Normal [facility] Comment on above: Performed By: #### C MP ####[facility] [address]qhdabvabx[address] [place], [place] [address]Dr. Selenaneil Deuce OSMOLALITYon 02-20-2022 Osmolality [Osmolality] 283 mosm/kg Normal 275-295 [facility] Comment on above: Performed By: #### O SMO ####[facility] Hwlrzwljae[address] [place], [place] [address]Dr. Airam Deuce CBC AUTO DIFFon 02-17-2022 BASO # 0.0 103/ul Normal 0.0-0.1 [facility] Comment on above: Performed By: #### C BC ####[facility] Xowetrhron[address] [place], [place] [address]Dr. Airam Tripathi Basophils/100 WBC (Bld) 0.3 % Normal 0.2-2.0 [facility] Comment on above: Performed By: #### C BC ####[facility] Mpdcpwmffx96[address] [place], [place] [address]Dr. Selenaneil Deuce EO # 0.1 103/ul Normal 0.0-0.7 [facility] Comment on above: Performed By: #### C BC ####[facility] Ugtwqsyztf[address] [place], [place] [address]Dr. Airam Tripathi Eosinophils/100 WBC (Bld) 1.6 % Normal 0.9-7.0 [facility] Comment on above: Performed By: #### C BC ####[facility] Phkqwrmlut25[address] [place], [place] [address]Dr. Airam Tripathi Erythrocyte distribution width (RBC) [Ratio] 13.4 % Normal 11.0-15.0 [facility] Comment on above: Performed By: #### C BC ####[facility] [address] [place] [address]Dr. Airam Tripathi Hematocrit (Bld) [Volume fraction] 31.4 % Critically low 36.0-48.0 [facility] Comment on above: Performed By: #### C BC ####[facility] Yxuiskcnzk57[address] [place], [place] [address]Dr. Airam Tripathi Hemoglobin (Bld) [Mass/Vol] 10.0 g/dL Critically low 12.0-16.0 [facility] Comment on above: Performed By: #### C BC ####[facility] Irzwvhawmo[address] [place], [place] [address]Dr. Airam Tripathi IG # 0.03 10e3/ul Normal 0.00-0.03 [facility] Comment on above: Performed By: #### C BC ####[facility] Aebxjdbvyg[address] [place], [place] [address]Dr. Airam Tripathi IG % 0.4 % Normal 0.0-0.5 [facility] Comment on above: Performed By: #### C BC ####[facility] Ivbsllremc[address] [place], [place] [address]DrKianna Airam Tripathi LYMPH # 1.6 103/ul Normal 1.2-3.8 [facility] Comment on above: Performed By: #### C BC ####[facility] Isxckudwuw245[address] [place], [place] [address]Dr. Airam Deuce Lymphocytes/100 WBC (Bld) 24.5 % Normal 20.5-60.0 [facility] Comment on above: Performed By: #### C BC ####[facility] Napsimcmgv694[address] [place], [place] [address]Dr. Airam Deuce MANUAL DIFF REQ NO Normal [facility] Comment on above: Performed By: #### C BC ####[facility] Uwimfcsutp6060[address] [place], [place] [address]Dr. Airam Deuce MCH (RBC) [Entitic mass] 30.2 pg Normal 26.7-34.0 [facility] Comment on above: Performed By: #### C BC ####[facility] [address] [place] [address]Dr. Airam Tripathi MCHC (RBC) [Mass/Vol] 31.8 g/dL Normal 29.9-35.2 [facility] Comment on above: Performed By: #### C BC ####[facility] Gbjpsfimkn[address] [place], [place] [address]DrKianna Tripathi MCV (RBC) [Entitic vol] 94.9 fL Normal 81.0-99.0 [facility] Comment on above: Performed By: #### C BC ####[facility] Sfzpatmajt3025[address] [place], [place] [address]DrKianna Tripathi MONO # 0.4 103/ul Normal 0.3-0.8 [facility] Comment on above: Performed By: #### C BC ####[facility] Iylpvyzmya95[address] [place], [place] [address]Dr. Airam Tripathi Monocytes/100 WBC (Bld) 5.8 % Normal 1.7-12.0 [facility] Comment on above: Performed By: #### C BC ####[facility] Bwukmkdixt88[address] [place], [place] [address]DrKianna Tripathi NEUT # 4.5 103/ul Normal 1.4-6.5 [facility] Comment on above: Performed By: #### C BC ####[facility] Raxamcpmbz9716[address] [place], [place] [address]DrKianna Tripathi Neutrophils/100 WBC (Bld) 67.4 % Normal 43.0-75.0 [facility] Comment on above: Performed By: #### C BC ####[facility] Qhwuzjprlw[address] [place], [place] [address]DrKianna Tripathi Platelet mean volume (Bld) [Entitic vol] 9.6 fL Normal 9.5-13.5 [facility] Comment on above: Performed By: #### C BC ####[facility] Qlenrhaaue[address] [place], [place] [address]Dr. Airam Tripathi PLT 251 103/ul Normal 150-450 [facility] Comment on above: Performed By: #### C BC ####[facility] [address]fsb[address] [place] [address]Dr. Selenaneil Deuce RBC 3.31 106/ul Critically low 4.20-5.40 [facility] Comment on above: Performed By: #### C BC ####[facility] Pvqkpyndml[address] [place] [address]Dr. Airam Tripathi WBC 6.7 103/ul Normal 4.0-11.0 [facility] Comment on above: Performed By: #### C BC ####[facility] Gomtmfdhah[address] [place] [address]DrKianna Tripathi PROF 14(COMP METB)on 022 Albumin [Mass/Vol] 3.5 g/dL Normal 3.4-5.0 [facility] Comment on above: Performed By: #### C MP ####[facility] Hhyauxytnu8674[address] [place], [place] [address]DrKianna Tripathi Albumin/Globulin [Mass ratio] 1.2 {ratio} Normal [facility] Comment on above: Performed By: #### C MP ####[facility] Fzvavghuqn5157[address] [place], [place] [address]Dr. Airam Tripathi ALP [Catalytic activity/Vol] 130 U/L Critically high 46-116 [facility] Comment on above: Performed By: #### C MP ####[facility] Qxcmucrwgo8059[address] [place], [place] [address]Dr. Airam Tripathi ALT [Catalytic activity/Vol] 18 U/L Normal 14-59 [facility] Comment on above: Performed By: #### C MP ####[facility] [address]puqylr[address] [place] [address]Dr. Airam Tripathi Anion gap [Moles/Vol] 14.0 mmol/L Normal Th [facility] Comment on above: Performed By: #### C MP ####[facility] Tbnsegkeac2945[address] [place], [place] [address]Dr. Airam Tripathi AST [Catalytic activity/Vol] 20 U/L Normal 15-37 [facility] Comment on above: Performed By: #### C MP ####[facility] Fcwtkdtpxh[address] [place] [address]Dr. Airam Tripathi Bilirubin [Mass/Vol] 0.3 mg/dL Normal 0.2-1.0 [facility] Comment on above: Performed By: #### C MP ####[facility] E[address]okfoery[address] [place] [address]Dr. Airam Deuce Calcium [Mass/Vol] 8.5 mg/dL Normal 8.5-10.1 [facility] Comment on above: Performed By: #### C MP ####[facility] Wlobjqngkk[address] [place], [place] [address]Dr. Airam Deuce Chloride [Moles/Vol] 100 mmol/L Normal 98-107 [facility] Comment on above: Performed By: #### C MP ####[facility] Lxctbnjzej534[address] [place], [place] [address]Dr. Airam Deuce CO2 [Moles/Vol] 22.7 mmol/L Normal 21.0-32.0 [facility] Comment on above: Performed By: #### C MP ####[facility] Rtapfsjcnt0530[address] [place], [place] [address]Dr. Airam Deuce Creatinine [Mass/Vol] 1.28 mg/dL Critically high 0.55-1.02 [facility] Comment on above: Performed By: #### C MP ####[facility] Xrffhnikqg717[address] [place], [place] [address]Dr. Airam Deuce EGFR-AF VENEZUELAN 52 mL/min/1.73m2 Critically low >=60 [facility] Comment on above: Performed By: #### C MP ####[facility] Ztcrwggali9775[address] [place], [place] [address]Dr. Selenaneil Deuce EGFR-NON AF VENEZUELAN 43 mL/min/1.73m2 Critically low >=60 [facility] Comment on above: Performed By: #### C MP ####[facility] Vomjgticwy[address] [place], [place] [address]Dr. Airam Deuce Globulin (S) [Mass/Vol] 2.9 g/dL Normal [facility] Comment on above: Performed By: #### C MP ####[facility] Dp[address]qbyiel[address] [place] [address]Dr. Airam Tripathi Glucose [Mass/Vol] 93 mg/dL Normal 74-106 [facility] Comment on above: Performed By: #### C MP ####[facility] Rtegvmguth6[address] [place] [address]Dr. Airam Tripathi Potassium [Moles/Vol] 3.7 mmol/L Normal 3.5-5.1 [facility] Comment on above: Performed By: #### C MP ####[facility] Ljonzvygou4385[address] [place], [place] [address]Dr. Airam Tripathi Protein [Mass/Vol] 6.4 g/dL Normal 6.4-8.2 [facility] Comment on above: Performed By: #### C MP ####[facility] Gwjepyqhdt026[address] [place], [place] [address]Dr. Airam Tripathi Sodium [Moles/Vol] 133 mmol/L Critically low 136-145 [facility] Comment on above: Performed By: #### C MP ####[facility] Mwxmnsbmpw3618[address] [place], [place] [address]Dr. Airam Tripathi Urea nitrogen [Mass/Vol] 44.0 mg/dL Critically high 7.0-18.0 [facility] Comment on above: Performed By: #### C MP ####[facility] Atuanqotei3248[address] [place], [place] [address]Dr. Airam Tripathi Urea nitrogen/Creatinine [Mass ratio] 34.4 mg/mg Normal [facility] Comment on above: Performed By: #### C MP ####[facility] Wweotrkxpa2678[address] [place], [place] [address]Dr. Airam Tripathi OSMOLALITYon 02-10-2022 Osmolality [Osmolality] 288 mosm/kg Normal 275-295 [facility] Comment on above: Performed By: #### O SMO ####[facility] Tqguubmyli713[address] [place], [place] [address]Dr. Airam Tripathi CBC AUTO DIFFon 02-08-2022 BASO # 0.0 103/ul Normal 0.0-0.1 [facility] Comment on above: Performed By: #### C BC ####[facility] Z[address]qhjr[address] [place] [address]Dr. Airam Tripathi Basophils/100 WBC (Bld) 0.3 % Normal 0.2-2.0 [facility] Comment on above: Performed By: #### C BC ####[facility] Glhweufjhh5739[address] [place], [place] [address]Dr. Selenaneil Deuce EO # 0.2 103/ul Normal 0.0-0.7 [facility] Comment on above: Performed By: #### C BC ####[facility] Gdumoysdjv4160[address] [place], [place] [address]Dr. Airam Deuce Eosinophils/100 WBC (Bld) 2.1 % Normal 0.9-7.0 [facility] Comment on above: Performed By: #### C BC ####[facility] Jptbohugnh105[address] [place], [place] [address]Dr. Airam Deuce Erythrocyte distribution width (RBC) [Ratio] 13.4 % Normal 11.0-15.0 [facility] Comment on above: Performed By: #### C BC ####[facility] Wrxucnprtz2354[address] [place], [place] [address]Dr. Selenaneil Tripathi Hematocrit (Bld) [Volume fraction] 35.1 % Critically low 36.0-48.0 [facility] Comment on above: Performed By: #### C BC ####[facility] Qyxxrnvlyr2227[address] [place], [place] [address]Dr. Selenaneil Deuce Hemoglobin (Bld) [Mass/Vol] 10.9 g/dL Critically low 12.0-16.0 [facility] Comment on above: Performed By: #### C BC ####[facility] Gqpmwuwjat6138[address] [place], [place] [address]Dr. Airam Tripathi IG # 0.03 10e3/ul Normal 0.00-0.03 [facility] Comment on above: Performed By: #### C BC ####[facility] Yodourkrko6[address] [place], [place] [address]Dr. Airam Tripathi IG % 0.3 % Normal 0.0-0.5 [facility] Comment on above: Performed By: #### C BC ####[facility] Cpq[address]alpnb[address] [place] [address]DrKianna Selenaneil Tripathi LYMPH # 1.3 103/ul Normal 1.2-3.8 [facility] Comment on above: Performed By: #### C BC ####[facility] Zzfrjiebkh[address] [place] [address]DrKianna Selenaneil Tripathi Lymphocytes/100 WBC (Bld) 13.1 % Critically low 20.5-60.0 [facility] Comment on above: Performed By: #### C BC ####[facility] Stgsvfjquv64[address] [place], [place] [address]DrKianna Selenaneil Tripathi MANUAL DIFF REQ NO Normal [facility] Comment on above: Performed By: #### C BC ####[facility] Mmxjruixmv9476[address] [place], [place] [address]DrKianna Selenaneil Tripathi MCH (RBC) [Entitic mass] 30.4 pg Normal 26.7-34.0 [facility] Comment on above: Performed By: #### C BC ####[facility] Wcyhmqceqo2580[address] [place], [place] [address]DrKianna Airam Deuce MCHC (RBC) [Mass/Vol] 31.1 g/dL Normal 29.9-35.2 [facility] Comment on above: Performed By: #### C BC ####[facility] Brtuyulyrt55[address] [place], [place] [address]DrKianna Selenaneil Tripathi MCV (RBC) [Entitic vol] 98.0 fL Normal 81.0-99.0 [facility] Comment on above: Performed By: #### C BC ####[facility] Erynhkrheo[address] [place], [place] [address]DrKianna Tripathi MONO # 0.5 103/ul Normal 0.3-0.8 [facility] Comment on above: Performed By: #### C BC ####[facility] Ihqqdvaocw735[address] [place], [place] [address]DrKianna Tripathi Monocytes/100 WBC (Bld) 4.7 % Normal 1.7-12.0 [facility] Comment on above: Performed By: #### C BC ####[facility] L[address]wtpkvwd[address] [place] [address]DrKianna Airam Tripathi NEUT # 7.7 103/ul Critically high 1.4-6.5 [facility] Comment on above: Performed By: #### C BC ####[facility] Kqrdikbkap[address] [place] [address]DrKianna Airam Tripathi Neutrophils/100 WBC (Bld) 79.5 % Critically high 43.0-75.0 [facility] Comment on above: Performed By: #### C BC ####[facility] Zgtxamggpe127[address] [place], [place] [address]DrKianna Airam Deuce Platelet mean volume (Bld) [Entitic vol] 9.6 fL Normal 9.5-13.5 [facility] Comment on above: Performed By: #### C BC ####[facility] Gvybjprpgc2880[address] [place], [place] [address]Dr. Airam Deuce PLT 268 103/ul Normal 150-450 [facility] Comment on above: Performed By: #### C BC ####[facility] Jijhoejetp5228[address] [place], [place] [address]DrKianna Airam Deuce RBC 3.58 106/ul Critically low 4.20-5.40 [facility] Comment on above: Performed By: #### C BC ####[facility] N[address]jotkaq[address] [place], [place] [id number] Airam Deuce WBC 9.7 103/ul Normal 4.0-11.0 [facility] Comment on above: Performed By: #### C BC ####[facility] Htiwfkbaak3250[address] [place], [place] [address]DrKianna Tripathi PROF 14(COMP METB)on 022 Albumin [Mass/Vol] 3.6 g/dL Normal 3.4-5.0 [facility] Comment on above: Performed By: #### C MP ####[facility] Ltnsypvbmq4406[address] [place], [place] [address]Dr. Airam Deuce Albumin/Globulin [Mass ratio] 1.1 {ratio} Normal [facility] Comment on above: Performed By: #### C MP ####[facility] Isihmnrauh[address] [place] [address]Dr. Airam Tripathi ALP [Catalytic activity/Vol] 131 U/L Critically high 46-116 [facility] Comment on above: Performed By: #### C MP ####[facility] Hykvihennq40[address] [place] [address]Dr. Airam Deuce ALT [Catalytic activity/Vol] 22 U/L Normal 14-59 [facility] Comment on above: Performed By: #### C MP ####[facility] Dnjhpcgyww8557[address] [place], [place] [address]Dr. Sleenaneil Deuce Anion gap [Moles/Vol] 13.3 mmol/L Normal [facility] Comment on above: Performed By: #### C MP ####[facility] Oimtmrvrcp8654[address] [place], [place] [address]Dr. Airam Deuce AST [Catalytic activity/Vol] 23 U/L Normal 15-37 [facility] Comment on above: Performed By: #### C MP ####[facility] Edzxjqdezf1169[address] [place], [place] [address]Dr. Airam Deuce Bilirubin [Mass/Vol] 0.3 mg/dL Normal 0.2-1.0 [facility] Comment on above: Performed By: #### C MP ####[facility] Gdtllqqxaz8548[address] [place], [place] [address]Dr. Airam Deuce Calcium [Mass/Vol] 8.7 mg/dL Normal 8.5-10.1 [facility] Comment on above: Performed By: #### C MP ####[facility] Lpvfhkossd5923[address] [place], [place] [address]Dr. Airam Tripathi Chloride [Moles/Vol] 104 mmol/L Normal 98-107 [facility] Comment on above: Performed By: #### C MP ####[facility] Stenvgreao4034[address] [place], [place] [address]Dr. Airam Tripathi CO2 [Moles/Vol] 22.0 mmol/L Normal 21.0-32.0 [facility] Comment on above: Performed By: #### C MP ####[facility] Hagprgcoio[address] [place] [address]Dr. Airam Deuce Creatinine [Mass/Vol] 1.20 mg/dL Critically high 0.55-1.02 [facility] Comment on above: Performed By: #### C MP ####[facility] Vjytavgkbc[address] [place] [address]Dr. Selenaneil Deuce EGFR-AF VENEZUELAN 56 mL/min/1.73m2 Critically low >=60 [facility] Comment on above: Performed By: #### C MP ####[facility] Rpjipjkxkt8469[address] [place], [place] [address]Dr. Airam Tripathi EGFR-NON AF VENEZUELAN 46 mL/min/1.73m2 Critically low >=60 [facility] Comment on above: Performed By: #### C MP ####[facility] Atfffshlls6029[address] [place], [place] [address]Dr. Selenaneil Tripathi Globulin (S) [Mass/Vol] 3.2 g/dL Normal [facility] Comment on above: Performed By: #### C MP ####[facility] Bktlccjehu3545[address] [place], [place] [address]Dr. Airam Tripathi Glucose [Mass/Vol] 98 mg/dL Normal 74-106 [facility] Comment on above: Performed By: #### C MP ####[facility] Twmjqpzuoz7265[address] [place], [place] [address]Dr. Airam Tripathi Potassium [Moles/Vol] 4.3 mmol/L Normal 3.5-5.1 [facility] Comment on above: Performed By: #### C MP ####[facility] Igxetrjoro4676[address] [place], [place] [address]Dr. Airam Tripathi Protein [Mass/Vol] 6.8 g/dL Normal 6.4-8.2 [facility] Comment on above: Performed By: #### C MP ####[facility] Ncpcaxqlcv2930[address] [place], [place] [address]Dr. Airam Tripathi Sodium [Moles/Vol] 135 mmol/L Critically low 136-145 [facility] Comment on above: Performed By: #### C MP ####[facility] Xwkewnralb7397[address] [place], [place] [address]Dr. Airam Tripathi Urea nitrogen [Mass/Vol] 33.0 mg/dL Critically high 7.0-18.0 [facility] Comment on above: Performed By: #### C MP ####[facility] Cedrrkwvsh8624[address] [place], [place] [address]Dr. Airam Tripathi Urea nitrogen/Creatinine [Mass ratio] 27.5 mg/mg Normal [facility] Comment on above: Performed By: #### C MP ####[facility] Qgoopnmyvu0360[address] [place], [place] [address]Dr. Airam Tripathi OSMOLALITYon 02-07-2022 Osmolality [Osmolality] 299 mosm/kg Critically high 275-295 [facility] Comment on above: Performed By: #### O SMO ####[facility] Nrqdkfvteo9254[address] [place], [place] [address]Dr. Airam Tripathi CBC AUTO DIFFon 02-03-2022 BASO # 0.0 103/ul Normal 0.0-0.1 [facility] Comment on above: Performed By: #### C BC ####[facility] Jhjdqbnsje2215[address] [place], [place] [address]Dr. Airam Tripathi Basophils/100 WBC (Bld) 0.4 % Normal 0.2-2.0 [facility] Comment on above: Performed By: #### C BC ####[facility] Xjbkrmfmeh306[address] [place], [place] [address]Dr. Airam Tripathi EO # 0.3 103/ul Normal 0.0-0.7 [facility] Comment on above: Performed By: #### C BC ####[facility] Ynylnbokck2055[address] [place], [place] [address]Dr. Airam Tripathi Eosinophils/100 WBC (Bld) 3.6 % Normal 0.9-7.0 [facility] Comment on above: Performed By: #### C BC ####[facility] Jmsvshobno0788[address] [place], [place] [address]Dr. Airam Tripathi Erythrocyte distribution width (RBC) [Ratio] 13.2 % Normal 11.0-15.0 [facility] Comment on above: Performed By: #### C BC ####[facility] Ehsibyrkgs[address] [place] [address]Dr. Airam Tripathi Hematocrit (Bld) [Volume fraction] 32.0 % Critically low 36.0-48.0 [facility] Comment on above: Performed By: #### C BC ####[facility] Fljnqevztp1632[address] [place], [place] [address]Dr. Airam Tripathi Hemoglobin (Bld) [Mass/Vol] 9.8 g/dL Critically low 12.0-16.0 [facility] Comment on above: Performed By: #### C BC ####[facility] Yqkttnhckr0827[address] [place], [place] [address]Dr. Airam Tripathi IG # 0.03 10e3/ul Normal 0.00-0.03 [facility] Comment on above: Performed By: #### C BC ####[facility] Vpcztpeiml[address] [place], [place] [address]Dr. Airam Tripathi IG % 0.4 % Normal 0.0-0.5 [facility] Comment on above: Performed By: #### C BC ####[facility] Kqgasonuvd6[address] [place], [place] [address]Dr. Airam Tripathi LYMPH # 1.7 103/ul Normal 1.2-3.8 [facility] Comment on above: Performed By: #### C BC ####[facility] Pmbyntxezn5830[address] [place], [place] [address]Dr. Airam Tripathi Lymphocytes/100 WBC (Bld) 24.8 % Normal 20.5-60.0 [facility] Comment on above: Performed By: #### C BC ####[facility] Kgczcgwuic24[address] [place], [place] [address]DrKianna Airam Deuce MANUAL DIFF REQ NO Normal [facility] Comment on above: Performed By: #### C BC ####[facility] Zosegvunub[address] [place], [place] [address]DrKianna Airam Deuce MCH (RBC) [Entitic mass] 29.6 pg Normal 26.7-34.0 [facility] Comment on above: Performed By: #### C BC ####[facility] [address]jhmlrmlh[address] [place] [address]Dr. Airam Tripathi MCHC (RBC) [Mass/Vol] 30.6 g/dL Normal 29.9-35.2 [facility] Comment on above: Performed By: #### C BC ####[facility] Lqynmdriga[address] [place], [place] [address]Dr. Airam Tripathi MCV (RBC) [Entitic vol] 96.7 fL Normal 81.0-99.0 [facility] Comment on above: Performed By: #### C BC ####[facility] Subwtjzdaq[address] [place], [place] [address]Dr. Airam Deuce MONO # 0.4 103/ul Normal 0.3-0.8 [facility] Comment on above: Performed By: #### C BC ####[facility] Gdfkfhlwyz4[address] [place], [place] [address]Dr. Selenaneil Tripathi Monocytes/100 WBC (Bld) 6.3 % Normal 1.7-12.0 [facility] [facility] Comment on above: Performed By: #### C BC ####[facility] [address]wdk[address] [place], [place] [address]Dr. Airam Tripathi NEUT # 4.5 103/ul Normal 1.4-6.5 [facility] Comment on above: Performed By: #### C BC ####[facility] Yjvlldenkn[address] [place], [place] [address]Dr. Selenaneil Tripathi Neutrophils/100 WBC (Bld) 64.5 % Normal 43.0-75.0 [facility] Comment on above: Performed By: #### C BC ####[facility] Xbiuxsjejq[address] [place], [place] [address]DrKianna Airam Deuce Platelet mean volume (Bld) [Entitic vol] 9.3 fL Critically low 9.5-13.5 [facility] Comment on above: Performed By: #### C BC ####[facility] Xzx[address] [place], [place] [id number]. Airam Tripathi PLT 243 103/ul Normal 150-450 [facility] Comment on above: Performed By: #### C BC ####[facility] Y[address]ejdnsfg[address] [place] [address]Dr. Selenaneil Deuce RBC 3.31 106/ul Critically low 4.20-5.40 [facility] Comment on above: Performed By: #### C BC ####[facility] Dkypjibgsn[address] [place] [address]Dr. Airam Tripathi WBC 7.0 103/ul Normal 4.0-11.0 [facility] Comment on above: Performed By: #### C BC ####[facility] Ezpvimwnqy3619 [place] [address]DrKianna Tripathi PROF 14(COMP METB)on 022 Albumin [Mass/Vol] 3.3 g/dL Critically low 3.4-5.0 [facility] Comment on above: Performed By: #### C MP ####[facility] Zntxyokfor86[address] [place] [address]Dr. Airam Tripathi Albumin/Globulin [Mass ratio] 1.1 {ratio} Normal [facility] Comment on above: Performed By: #### C MP ####[facility] Vkszswzssv[address] [place] [address]Dr. Airam Tripathi ALP [Catalytic activity/Vol] 126 U/L Critically high 46-116 [facility] Comment on above: Performed By: #### C MP ####[facility] Opfftmvkhb2[address] [place] [address]Dr. Airam Tripathi ALT [Catalytic activity/Vol] 21 U/L Normal 14-59 [facility] Comment on above: Performed By: #### C MP ####[facility] Tezliwpleo4512 [place] [address]DrKianna Tripathi Anion gap [Moles/Vol] 11.8 mmol/L Normal [facility] Comment on above: Performed By: #### C MP ####[facility] Xzyzpssgwo3814 [place] [address]Dr. Airam Tripathi AST [Catalytic activity/Vol] 22 U/L Normal 15-37 [facility] Comment on above: Performed By: #### C MP ####[facility] Nivqhujzvs6134 [place] [address]Dr. Airam Deuce Bilirubin [Mass/Vol] 0.3 mg/dL Normal 0.2-1.0 [facility] Comment on above: Performed By: #### C MP ####[facility] Isqlbuxybu[address] [place], [place] [address]Dr. Airam Tripathi Calcium [Mass/Vol] 8.7 mg/dL Normal 8.5-10.1 [facility] Comment on above: Performed By: #### C MP ####[facility] Pwkuwxdzbm6[address] [place], [place] [address]Dr. Airam Tripathi Chloride [Moles/Vol] 102 mmol/L Normal 98-107 [facility] Comment on above: Performed By: #### C MP ####[facility] Juahfxavlw[address]13[address] [place], [place] [address]Dr. Airam Tripathi CO2 [Moles/Vol] 25.5 mmol/L Normal 21.0-32.0 [facility] Comment on above: Performed By: #### C MP ####[facility] Artuuuijtt[address] [place], [place] [address]Dr. Airam Tripathi Creatinine [Mass/Vol] 1.43 mg/dL Critically high 0.55-1.02 [facility] Comment on above: Performed By: #### C MP ####[facility] Dnavmkpepu[address] [place], [place] [address]Dr. Airam Tripathi EGFR-AF VENEZUELAN 46 mL/min/1.73m2 Critically low >=60 [facility] Comment on above: Performed By: #### C MP ####[facility] Icmhmwbidc[address] [place], [place] [address]Dr. Airam Tripathi EGFR-NON AF VENEZUELAN 38 mL/min/1.73m2 Critically low >=60 [facility] Comment on above: Performed By: #### C MP ####[facility] Vkcnyckydg[address] [place], [place] [address]Dr. Airam Tripathi Globulin (S) [Mass/Vol] 2.9 g/dL Normal [facility] Comment on above: Performed By: #### C MP ####[facility] Xzgryhjhko1960[address] [place], [place] [address]Dr. Airam Tripathi Glucose [Mass/Vol] 83 mg/dL Normal 74-106 [facility] Comment on above: Performed By: #### C MP ####[facility] Klakaccxis[address] [place] [address]Dr. Airam Tripathi Potassium [Moles/Vol] 4.3 mmol/L Normal 3.5-5.1 [facility] Comment on above: Performed By: #### C MP ####[facility] Hrinzbcidy9355[address] [place], [place] [address]Dr. Airam Tripathi Protein [Mass/Vol] 6.2 g/dL Critically low 6.4-8.2 [facility] Comment on above: Performed By: #### C MP ####[facility] Udhsieetst[address] [place], [place] [address]Dr. Airam Tripathi Sodium [Moles/Vol] 135 mmol/L Critically low 136-145 [facility] Comment on above: Performed By: #### C MP ####[facility] Qlnuaphnfj[address] [place], [place] [address]DrKianna Tripathi Urea nitrogen [Mass/Vol] 39.0 mg/dL Critically high 7.0-18.0 [facility] Comment on above: Performed By: #### C MP ####[facility] Anhpeafzvh[address] [place], [place] [address]Dr. Airam Tripathi Urea nitrogen/Creatinine [Mass ratio] 27.3 mg/mg Normal [facility] Comment on above: Performed By: #### C MP ####[facility] Zishsntuuh[address] [place], [place] [address]DrKianna Tripathi OSMOLALITYon 02-02-2022 Osmolality [Osmolality] 292 mosm/kg Normal 275-295 [facility] Comment on above: Performed By: #### O SMO ####[facility] Nzmkiwjrll16[address] [place], [place] [address]DrKianna Tripathi CBC AUTO DIFFon 01-27-2022 BASO # 0.0 103/ul Normal 0.0-0.1 [facility] Comment on above: Performed By: #### C BC ####[facility] Cluiltbbgg30[address] [place] [address]Dr. Airam Tripathi Basophils/100 WBC (Bld) 0.4 % Normal 0.2-2.0 [facility] Comment on above: Performed By: #### C BC ####[facility] Pbypjcmogi6515 [place] [address]Dr. Airam Tripathi EO # 0.2 103/ul Normal 0.0-0.7 [facility] Comment on above: Performed By: #### C BC ####[facility] Ojwgsnysin88[address] [place], [place] [address]Dr. Selenaneil Deuce Eosinophils/100 WBC (Bld) 3.4 % Normal 0.9-7.0 [facility] Comment on above: Performed By: #### C BC ####[facility] Kiiiylyxar04[address] [place], [place] [address]Dr. Airam Tripathi Erythrocyte distribution width (RBC) [Ratio] 13.1 % Normal 11.0-15.0 [facility] Comment on above: Performed By: #### C BC ####[facility] [address]ydewhaf[address] [place] [address]Dr. Airam Tripathi Hematocrit (Bld) [Volume fraction] 31.6 % Critically low 36.0-48.0 [facility] Comment on above: Performed By: #### C BC ####[facility] Yzwbyheneb3083 [place] [address]Dr. Airam Tripathi Hemoglobin (Bld) [Mass/Vol] 9.9 g/dL Critically low 12.0-16.0 [facility] Comment on above: Performed By: #### C BC ####[facility] Xzwnzmgtqy9166 [place] [address]Dr. Airam Tripathi IG # 0.02 10e3/ul Normal 0.00-0.03 [facility] Comment on above: Performed By: #### C BC ####[facility] Bixxijuwot9[address] [place] [id number]. Airam Tripathi IG % 0.4 % Normal 0.0-0.5 [facility] Comment on above: Performed By: #### C BC ####[facility] Knslebpjok[address] [place] [address]Dr. Airam Deuce LYMPH # 1.0 103/ul Critically low 1.2-3.8 [facility] Comment on above: Performed By: #### C BC ####[facility] Wsdwedslas7[address] [place] [address]Dr. Selenaneil Tripathi Lymphocytes/100 WBC (Bld) 17.4 % Critically low 20.5-60.0 [facility] Comment on above: Performed By: #### C BC ####[facility] [address]qvkvzvuhm[address] [place], [place] [address]Dr. Selenaneil Tripathi MANUAL DIFF REQ NO Normal [facility] Comment on above: Performed By: #### C BC ####[facility] Bhkavsalbu6723[address] [place], [place] [address]Dr. Airam Deuce MCH (RBC) [Entitic mass] 30.1 pg Normal 26.7-34.0 [facility] Comment on above: Performed By: #### C BC ####[facility] Jaclztxrpj[address] [place], [place] [address]Dr. Airam Tripathi MCHC (RBC) [Mass/Vol] 31.3 g/dL Normal 29.9-35.2 [facility] Comment on above: Performed By: #### C BC ####[facility] Obxriymavv[address] [place], [place] [address]Dr. Airam Deuce MCV (RBC) [Entitic vol] 96.0 fL Normal 81.0-99.0 [facility] Comment on above: Performed By: #### C BC ####[facility] Xgkwsauscs[address] [place], [place] [address]Dr. Airam Tripathi MONO # 0.5 103/ul Normal 0.3-0.8 [facility] Comment on above: Performed By: #### C BC ####[facility] [address] [place] [address]. Airam Tripathi Monocytes/100 WBC (Bld) 8.6 % Normal 1.7-12.0 [facility] Comment on above: Performed By: #### C BC ####[facility] Hroixurhvw8534 [place] [id number]. Airam Tripathi NEUT # 3.9 103/ul Normal 1.4-6.5 [facility] Comment on above: Performed By: #### C BC ####[facility] Iezrhxhlse2919 [place] [address]Dr. Airam Tripathi Neutrophils/100 WBC (Bld) 69.8 % Normal 43.0-75.0 [facility] Comment on above: Performed By: #### C BC ####[facility] Vubtmnrzub450[address] [place] [address]Dr. Airam Tripathi Platelet mean volume (Bld) [Entitic vol] 9.6 fL Normal 9.5-13.5 [facility] Comment on above: Performed By: #### C BC ####[facility] Zdctbkfyyp5391 [place] [address]Dr. Airam Tripathi PLT 228 103/ul Normal 150-450 [facility] Comment on above: Performed By: #### C BC ####[facility] Iiudclnbvt6209 [place] [address]Dr. Airam Tripathi RBC 3.29 106/ul Critically low 4.20-5.40 [facility] Comment on above: Performed By: #### C BC ####[facility] Aqoawunzrz5191 [place] [address]Dr. Airam Tripathi WBC 5.6 103/ul Normal 4.0-11.0 [facility] Comment on above: Performed By: #### C BC ####[facility] Ltboaxxnmi5789 [place] [address]Dr. Airam Tripathi PROF 14(COMP METB)on 022 Albumin [Mass/Vol] 3.1 g/dL Critically low 3.4-5.0 [facility] Comment on above: Performed By: #### C MP ####[facility] Slldroyqpe5208 [place] [address]Dr. iAram Deuce Albumin/Globulin [Mass ratio] 1.0 {ratio} Normal [facility] Comment on above: Performed By: #### C MP ####[facility] Hrdyonkugf7172 [place] [address]Dr. Airam Tripathi ALP [Catalytic activity/Vol] 131 U/L Critically high 46-116 [facility] Comment on above: Performed By: #### C MP ####[facility] Riaiisawmz7[address] [place], [place] [address]Dr. Airam Tripathi ALT [Catalytic activity/Vol] 19 U/L Normal 14-59 [facility] Comment on above: Performed By: #### C MP ####[facility] Olenytgezf6735[address] [place], [place] [address]Dr. Airam Tripathi Anion gap [Moles/Vol] 12.9 mmol/L Normal [facility] Comment on above: Performed By: #### C MP ####[facility] Vojklugcxo[address] [place], [place] [address]Dr. Airam Tripathi AST [Catalytic activity/Vol] 21 U/L Normal 15-37 [facility] Comment on above: Performed By: #### C MP ####[facility] Ygektdqmyv4589[address] [place], [place] [address]Dr. Airam Tripathi Bilirubin [Mass/Vol] 0.2 mg/dL Normal 0.2-1.0 [facility] Comment on above: Performed By: #### C MP ####[facility] Kivmwdvpao66[address] [place], [place] [address]Dr. Airam Tripathi Calcium [Mass/Vol] 8.4 mg/dL Critically low 8.5-10.1 [facility] Comment on above: Performed By: #### C MP ####[facility] Wahegsrhya7[address] [place], [place] [address]Dr. Airam Tripathi Chloride [Moles/Vol] 103 mmol/L Normal 98-107 [facility] Comment on above: Performed By: #### C MP ####[facility] Encfdfihnv5239[address] [place], [place] [address]Dr. Airam Tripathi CO2 [Moles/Vol] 23.7 mmol/L Normal 21.0-32.0 [facility] Comment on above: Performed By: #### C MP ####[facility] Sbfojhwlvj6219 [place] [address]Dr. Airam Tripathi Creatinine [Mass/Vol] 1.37 mg/dL Critically high 0.55-1.02 [facility] Comment on above: Performed By: #### C MP ####[facility] Mxqmjliuhz2719 [place] [address]Dr. Airam Deuce EGFR-AF VENEZUELAN 48 mL/min/1.73m2 Critically low >=60 [facility] Comment on above: Performed By: #### C MP ####[facility] Htluxudjmw7[address] [place], [place] [address]Dr. Selenaneil Deuce EGFR-NON AF VENEZUELAN 39 mL/min/1.73m2 Critically low >=60 [facility] Comment on above: Performed By: #### C MP ####[facility] Flgbtyxowf7245[address] [place], [place] [address]Dr. Airam Deuce Globulin (S) [Mass/Vol] 3.1 g/dL Normal [facility] Comment on above: Performed By: #### C MP ####[facility] Roronwzhni2524[address] [place], [place] [address]Dr. Airam Tripathi Glucose [Mass/Vol] 88 mg/dL Normal 74-106 [facility] Comment on above: Performed By: #### C MP ####[facility] Bktmisnkot503[address] [place], [place] [address]Dr. Airam Deuce Potassium [Moles/Vol] 4.6 mmol/L Normal 3.5-5.1 [facility] Comment on above: Performed By: #### C MP ####[facility] Clceesrfbd4254[address] [place], [place] [address]Dr. Airam Tripathi Protein [Mass/Vol] 6.2 g/dL Critically low 6.4-8.2 [facility] Comment on above: Performed By: #### C MP ####[facility] Qvditjzrro3112[address] [place], [place] [address]Dr. Airam Tripathi Sodium [Moles/Vol] 135 mmol/L Critically low 136-145 [facility] Comment on above: Performed By: #### C MP ####[facility] Vjgzqosgem9994 [place] [address]Dr. Airam Tripathi Urea nitrogen [Mass/Vol] 34.0 mg/dL Critically high 7.0-18.0 [facility] Comment on above: Performed By: #### C MP ####[facility] Uleojplprj3203 [place] [address]Dr. Airam Tripathi Urea nitrogen/Creatinine [Mass ratio] 24.8 mg/mg Normal [facility] Comment on above: Performed By: #### C MP ####[facility] Tzrioohfis4499[address] [place], [place] [address]Dr. Airam Tripathi OSMOLALITYon 01-21-2022 Osmolality [Osmolality] 276 mosm/kg Normal 275-295 [facility] Comment on above: Performed By: #### O SMO ####[facility] Xtftwtqbzu4204[address] [place], [place] [address]Dr. Airam Tripathi MRI CSPINE WO CONon 01-21-20 MRI CSPINE WO CON Normal [facility] CBC AUTO DIFFon 01-19-2022 BASO # 0.0 103/ul Normal 0.0-0.1 [facility] Comment on above: Performed By: #### C BC ####[facility] Dxngygessp4669[address] [place], [place] [address]Dr. Airam Deuce Basophils/100 WBC (Bld) 0.2 % Normal 0.2-2.0 [facility] Comment on above: Performed By: #### C BC ####[facility] Qmivzqbxof0804 [place] [address]Dr. Airam Deuce EO # 0.2 103/ul Normal 0.0-0.7 [facility] Comment on above: Performed By: #### C BC ####[facility] Cywwtrlccp[address] [place], [place] [address]Dr. Airam Tripathi Eosinophils/100 WBC (Bld) 2.1 % Normal 0.9-7.0 [facility] Comment on above: Performed By: #### C BC ####[facility] Wzhbellqgr3504 [place] [address]Dr. Airam Tripathi Erythrocyte distribution width (RBC) [Ratio] 12.7 % Normal 11.0-15.0 [facility] Comment on above: Performed By: #### C BC ####[facility] Lmwxfikymk[address] [place], [place] [address]Dr. Airam Tripathi Hematocrit (Bld) [Volume fraction] 32.2 % Critically low 36.0-48.0 [facility] Comment on above: Performed By: #### C BC ####[facility] Ifhprtyzls[address] [place], [place] [address]Dr. Airam Tripathi Hemoglobin (Bld) [Mass/Vol] 10.4 g/dL Critically low 12.0-16.0 [facility] Comment on above: Performed By: #### C BC ####[facility] Hbgmkhgbjw[address] [place], [place] [address]Dr. Aiarm Tripathi IG # 0.03 10e3/ul Normal 0.00-0.03 [facility] Comment on above: Performed By: #### C BC ####[facility] Xrdklskzto6[address] [place], [place] [address]Dr. Airam Tripathi IG % 0.3 % Normal 0.0-0.5 [facility] Comment on above: Performed By: #### C BC ####[facility] Ktviohbvsf[address] [place], [place] [address]Dr. Airam Tripathi LYMPH # 1.4 103/ul Normal 1.2-3.8 [facility] Comment on above: Performed By: #### C BC ####[facility] Bcmrltayht[address]17[address] [place], [place] [address]DrKianna Airam Tripathi Lymphocytes/100 WBC (Bld) 16.0 % Critically low 20.5-60.0 [facility] Comment on above: Performed By: #### C BC ####[facility] Uzcduroplj06[address] [place], [place] [address]DrKianna Airam Tripathi MANUAL DIFF REQ NO Normal [facility] Comment on above: Performed By: #### C BC ####[facility] Kwcrpumfso3[address] [place] [id number]. Airam Tripathi MCH (RBC) [Entitic mass] 30.0 pg Normal 26.7-34.0 [facility] Comment on above: Performed By: #### C BC ####[facility] Hadbvljubc8761 [place] [address]Dr. Airam Deuce MCHC (RBC) [Mass/Vol] 32.3 g/dL Normal 29.9-35.2 [facility] Comment on above: Performed By: #### C BC ####[facility] Hparantvgu3665 [place] [address]Dr. Airam Deuce MCV (RBC) [Entitic vol] 92.8 fL Normal 81.0-99.0 [facility] Comment on above: Performed By: #### C BC ####[facility] Kcnleofhov35[address] [place], [place] [address]Dr. Selenaneil Tripathi MONO # 0.4 103/ul Normal 0.3-0.8 [facility] Comment on above: Performed By: #### C BC ####[facility] Jwnlocsmik[address] [place], [place] [address]Dr. Selenaneil Tripathi Monocytes/100 WBC (Bld) 4.9 % Normal 1.7-12.0 [facility] Comment on above: Performed By: #### C BC ####[facility] Piywftdwgk[address] [place], [place] [address]Dr. Airam Deuce NEUT # 6.6 103/ul Critically high 1.4-6.5 [facility] Comment on above: Performed By: #### C BC ####[facility] [address]iknztl[address] [place], [place] [id number] Selenaneil Tripathi Neutrophils/100 WBC (Bld) 76.5 % Critically high 43.0-75.0 [facility] Comment on above: Performed By: #### C BC ####[facility] Tsfkjbmxob[address] [place], [place] [address]Dr. Airam Tripathi Platelet mean volume (Bld) [Entitic vol] 9.8 fL Normal 9.5-13.5 [facility] Comment on above: Performed By: #### C BC ####[facility] Efzkfiqvbm2547 [place] [id number]. Airam Tripathi PLT 262 103/ul Normal 150-450 [facility] Comment on above: Performed By: #### C BC ####[facility] Bdfxbrqfvp2989 [place] [id number]. Selenaneil Deuce RBC 3.47 106/ul Critically low 4.20-5.40 [facility] Comment on above: Performed By: #### C BC ####[facility] Acgauwvxvk0763 [place] [id number]. Selenaneil Deuce WBC 8.7 103/ul Normal 4.0-11.0 [facility] Comment on above: Performed By: #### C BC ####[facility] Otsxfxqsri4012 [place] [address]Dr. Airam Tripathi PROF 14(COMP METB)on 022 Albumin [Mass/Vol] 3.3 g/dL Critically low 3.4-5.0 [facility] Comment on above: Performed By: #### C MP ####[facility] Jkudlgmkjv5296 [place] [address]Dr. Airam Tripathi Albumin/Globulin [Mass ratio] 1.1 {ratio} Normal [facility] Comment on above: Performed By: #### C MP ####[facility] Csbxfzjlds6439 [place] [address]Dr. Airam Tripathi ALP [Catalytic activity/Vol] 114 U/L Normal 46-116 [facility] Comment on above: Performed By: #### C MP ####[facility] Tllncuookf6104 [place] [id number]. Airam Tripathi ALT [Catalytic activity/Vol] 20 U/L Normal 14-59 [facility] Comment on above: Performed By: #### C MP ####[facility] Wlbcszoxop6630 [place] [id number]. Airam Tripathi Anion gap [Moles/Vol] 14.7 mmol/L Normal [facility] Comment on above: Performed By: #### C MP ####[facility] Cptibevdse6825 [place] [id number]. Airam Tripathi AST [Catalytic activity/Vol] 22 U/L Normal 15-37 [facility] Comment on above: Performed By: #### C MP ####[facility] Fqgkmuuwto5470 [place] [id number]. Airam Tripathi Bilirubin [Mass/Vol] 0.3 mg/dL Normal 0.2-1.0 [facility] Comment on above: Performed By: #### C MP ####[facility] Zcedtznptf8273 [place] [address]Dr. Airam Tripathi Calcium [Mass/Vol] 8.8 mg/dL Normal 8.5-10.1 [facility] Comment on above: Performed By: #### C MP ####[facility] [address]wlzksqyge[address] [place], [place] [address]Dr. Airam Tripathi Chloride [Moles/Vol] 97 mmol/L Critically low 98-107 [facility] Comment on above: Performed By: #### C MP ####[facility] Eesubodvdq[address] [place], [place] [address]Dr. Airam Tripathi CO2 [Moles/Vol] 24.5 mmol/L Normal 21.0-32.0 [facility] Comment on above: Performed By: #### C MP ####[facility] Znukejtrlw[address] [place], [place] [address]Dr. Airam Tripathi Creatinine [Mass/Vol] 1.28 mg/dL Critically high 0.55-1.02 [facility] Comment on above: Performed By: #### C MP ####[facility] Ivvvkbhras7518 [place] [id number]. Airam Deuce EGFR-AF VENEZUELAN 52 mL/min/1.73m2 Critically low >=60 [facility] Comment on above: Performed By: #### C MP ####[facility] Vcshlicuoo2950 [place] [id number]. Selenaneil Deuce EGFR-NON AF VENEZUELAN 43 mL/min/1.73m2 Critically low >=60 [facility] Comment on above: Performed By: #### C MP ####[facility] [address]qswlcxlj[address] [place] [id number]. Airam Tripathi Globulin (S) [Mass/Vol] 3.1 g/dL Normal [facility] Comment on above: Performed By: #### C MP ####[facility] Ednbjonsdh3436 [place] [id number]. Airam Tripathi Glucose [Mass/Vol] 87 mg/dL Normal 74-106 [facility] Comment on above: Performed By: #### C MP ####[facility] Zloiixtflj[address] [place] [address]Dr. Airam Tripathi Potassium [Moles/Vol] 4.2 mmol/L Normal 3.5-5.1 [facility] Comment on above: Performed By: #### C MP ####[facility] Nlotjyywdp[address] [place] [address]Dr. Airam Tripathi Protein [Mass/Vol] 6.4 g/dL Normal 6.4-8.2 [facility] Comment on above: Performed By: #### C MP ####[facility] Ibudloxumk7238 [place] [address]Dr. Airam Tripathi Sodium [Moles/Vol] 132 mmol/L Critically low 136-145 [facility] Comment on above: Performed By: #### C MP ####[facility] Itpzhocjss9328 [place] [address]Dr. Airam Deuce Urea nitrogen [Mass/Vol] 36.0 mg/dL Critically high 7.0-18.0 [facility] Comment on above: Performed By: #### C MP ####[facility] Rgidtimykk4960 [place] [id number]. Airam Deuce Urea nitrogen/Creatinine [Mass ratio] 28.1 mg/mg Normal [facility] Comment on above: Performed By: #### C MP ####[facility] Kcjheutolb2569 [place] [id number]. Airam Deuce XR DEXA BONE DENSITYon 01-19 XR DEXA BONE DENSITY Normal [facility] OSMOLALITYon 01-13-2022 Osmolality [Osmolality] 277 mosm/kg Normal 275-295 [facility] Comment on above: Performed By: #### O SMO ####[facility] Gatykrmzpx[address] [place], [place] [address]Dr. Ariam Tripathi CBC AUTO DIFFon 01-11-2022 BASO # 0.0 103/ul Normal 0.0-0.1 [facility] Comment on above: Performed By: #### C BC ####[facility] Bolkibfebs[address] [place], [place] [address]Dr. Airam Tripathi Basophils/100 WBC (Bld) 0.5 % Normal 0.2-2.0 [facility] Comment on above: Performed By: #### C BC ####[facility] Rdpfhyhuxh[address] [place], [place] [address]Dr. Airam Tripathi EO # 0.2 103/ul Normal 0.0-0.7 [facility] Comment on above: Performed By: #### C BC ####[facility] Yboglhsfvk[address] [place], [place] [address]Dr. Airam Tripathi Eosinophils/100 WBC (Bld) 3.1 % Normal 0.9-7.0 [facility] Comment on above: Performed By: #### C BC ####[facility] Qcekjqmlnl[address] [place], [place] [address]Dr. Airam Tripathi Erythrocyte distribution width (RBC) [Ratio] 12.5 % Normal 11.0-15.0 [facility] Comment on above: Performed By: #### C BC ####[facility] Kkygowdzjt2[address] [place], [place] [address]Dr. Airam Tripathi Hematocrit (Bld) [Volume fraction] 34.4 % Critically low 36.0-48.0 [facility] Comment on above: Performed By: #### C BC ####[facility] Czmsdrgjkk6[address] [place], [place] [address]Dr. Airam Tripathi Hemoglobin (Bld) [Mass/Vol] 11.0 g/dL Critically low 12.0-16.0 [facility] Comment on above: Performed By: #### C BC ####[facility] Nyhnjyimey36[address] [place] [address]Dr. Airam Tripathi IG # 0.03 10e3/ul Normal 0.00-0.03 [facility] Comment on above: Performed By: #### C BC ####[facility] Exnoanxynt2462 [place] [address]Dr. Airam Deuce IG % 0.5 % Normal 0.0-0.5 [facility] Comment on above: Performed By: #### C BC ####[facility] Uewvzudknl6865 [place] [address]Dr. Selenaneil Tripathi LYMPH # 1.6 103/ul Normal 1.2-3.8 [facility] Comment on above: Performed By: #### C BC ####[facility] Vliegnoorv9723 [place] [address]Dr. Airam Tripathi Lymphocytes/100 WBC (Bld) 28.0 % Normal 20.5-60.0 [facility] Comment on above: Performed By: #### C BC ####[facility] Gxdawbyyvc2869 [place] [address]Dr. Selenaneil Tripathi MANUAL DIFF REQ NO Normal [facility] Comment on above: Performed By: #### C BC ####[facility] Ikgirprpip4646 [place] [address]Dr. Airam Tripathi MCH (RBC) [Entitic mass] 30.1 pg Normal 26.7-34.0 [facility] Comment on above: Performed By: #### C BC ####[facility] Zbjzcjjeqg4136 [place] [address]Dr. Airam Deuce MCHC (RBC) [Mass/Vol] 32.0 g/dL Normal 29.9-35.2 [facility] Comment on above: Performed By: #### C BC ####[facility] Rnpckplqef[address] [place], [place] [address]Dr. Airam Deuce MCV (RBC) [Entitic vol] 94.0 fL Normal 81.0-99.0 [facility] Comment on above: Performed By: #### C BC ####[facility] Mrcmfweafg[address] [place], [place] [id number]. Airam Tripathi MONO # 0.4 103/ul Normal 0.3-0.8 [facility] Comment on above: Performed By: #### C BC ####[facility] Jfntyoinbc6467 [place] [address]Dr. Airam Tripathi Monocytes/100 WBC (Bld) 7.5 % Normal 1.7-12.0 [facility] Comment on above: Performed By: #### C BC ####[facility] Soiglwentf6864 [place] [address]Dr. Airam Tripathi NEUT # 3.5 103/ul Normal 1.4-6.5 [facility] Comment on above: Performed By: #### C BC ####[facility] Zapyrjpbvw4[address] [place], [place] [address]Dr. Airam Tripathi Neutrophils/100 WBC (Bld) 60.4 % Normal 43.0-75.0 [facility] Comment on above: Performed By: #### C BC ####[facility] Ikddrsrlak9301[address] [place], [place] [address]Dr. Airam Tripathi Platelet mean volume (Bld) [Entitic vol] 10.0 fL Normal 9.5-13.5 [facility] Comment on above: Performed By: #### C BC ####[facility] Pkmjaomprw0497 [place] [address]Dr. Airam Tripathi PLT 300 103/ul Normal 150-450 [facility] Comment on above: Performed By: #### C BC ####[facility] Utejqqyxsh[address] [place], [place] [address]Dr. Airam Tripathi RBC 3.66 106/ul Critically low 4.20-5.40 [facility] Comment on above: Performed By: #### C BC ####[facility] Fcztdsyawt[address] [place], [place] [address]Dr. Airam Tripathi WBC 5.7 103/ul Normal 4.0-11.0 [facility] Comment on above: Performed By: #### C BC ####[facility] Nklycnvbry[address] [place], [place] [address]Dr. Airam Tripathi PROF 14(COMP METB)on 022 Albumin [Mass/Vol] 3.3 g/dL Critically low 3.4-5.0 [facility] Comment on above: Performed By: #### C MP ####[facility] Rcokfqdslg23[address] [place], [place] [address]Dr. Airam Tripathi Albumin/Globulin [Mass ratio] 1.0 {ratio} Normal [facility] Comment on above: Performed By: #### C MP ####[facility] Uileicpqte[address] [place], [place] [address]Dr. Airam Tripathi ALP [Catalytic activity/Vol] 138 U/L Critically high 46-116 [facility] Comment on above: Performed By: #### C MP ####[facility] Ksxqalgdjy4[address] [place], [place] [address]Dr. Airam Tripathi ALT [Catalytic activity/Vol] 25 U/L Normal 14-59 [facility] Comment on above: Performed By: #### C MP ####[facility] Foxwoydwog[address] [place], [place] [address]Dr. Airam Tripathi Anion gap [Moles/Vol] 14.0 mmol/L Normal [facility] Comment on above: Performed By: #### C MP ####[facility] Kriuabniaj6829[address] [place], [place] [address]Dr. Airam Tripathi AST [Catalytic activity/Vol] 19 U/L Normal 15-37 [facility] Comment on above: Performed By: #### C MP ####[facility] Aluhbgpdma[address] [place], [place] [address]Dr. Airam Tripathi Bilirubin [Mass/Vol] 0.3 mg/dL Normal 0.2-1.0 [facility] Comment on above: Performed By: #### C MP ####[facility] Bharwytgfb0522[address] [place], [place] [address]Dr. Airam Tripathi Calcium [Mass/Vol] 8.7 mg/dL Normal 8.5-10.1 [facility] Comment on above: Performed By: #### C MP ####[facility] Gqrxxfbktd9726[address] [place], [place] [address]Dr. Airam Tripathi Chloride [Moles/Vol] 99 mmol/L Normal 98-107 [facility] Comment on above: Performed By: #### C MP ####[facility] Jtbyxqlvdl4685[address] [place], [place] [address]Dr. Airam Deuce CO2 [Moles/Vol] 25.4 mmol/L Normal 21.0-32.0 [facility] Comment on above: Performed By: #### C MP ####[facility] Xioipjlypo[address] [place], [place] [address]Dr. Airam Deuce Creatinine [Mass/Vol] 1.22 mg/dL Critically high 0.55-1.02 [facility] Comment on above: Performed By: #### C MP ####[facility] Khryaepesw[address] [place], [place] [address]Dr. Airam Tripathi EGFR-AF VENEZUELAN 55 mL/min/1.73m2 Critically low >=60 [facility] Comment on above: Performed By: #### C MP ####[facility] Cvxkpobyig[address] [place], [place] [address]Dr. Airam Deuce EGFR-NON AF VENEZUELAN 45 mL/min/1.73m2 Critically low >=60 [facility] Comment on above: Performed By: #### C MP ####[facility] Emqyghyhaz15[address] [place], [place] [address]Dr. Airam Tripathi Globulin (S) [Mass/Vol] 3.2 g/dL Normal [facility] Comment on above: Performed By: #### C MP ####[facility] Smidccacya4[address] [place], [place] [address]Dr. Airam Tripathi Glucose [Mass/Vol] 111 mg/dL Critically high 74-106 T [facility] Comment on above: Performed By: #### C MP ####[facility] Xgtgkgegpj40[address] [place], [place] [address]Dr. Airam Tripathi Potassium [Moles/Vol] 4.4 mmol/L Normal 3.5-5.1 [facility] Comment on above: Performed By: #### C MP ####[facility] Nftdgxqfdp[address] [place], [place] [address]Dr. Airam Tripathi Protein [Mass/Vol] 6.5 g/dL Normal 6.4-8.2 [facility] Comment on above: Performed By: #### C MP ####[facility] [address] [place], [place] [address]Id. Airam Tripathi Sodium [Moles/Vol] 134 mmol/L Critically low 136-145 [facility] Comment on above: Performed By: #### C MP ####[facility] Cguciywzrd8150 [place], [place] [address]Jq. Airam Tripathi Urea nitrogen [Mass/Vol] 27.0 mg/dL Critically high 7.0-18.0 [facility] Comment on above: Performed By: #### C MP ####[facility] Kpfytojcpt6637 [place] [id number]. Airam Tripathi Urea nitrogen/Creatinine [Mass ratio] 22.1 mg/mg Normal [facility] Comment on above: Performed By: #### C MP ####[facility] Ujpzbytdty1812 [place] [id number]. Airam Tripathi CT CERVICAL SPINE WITHOUT CO NTRASTon 01-10-2022 CT CERVICAL SPINE WITHOUT CONTRAST [facility] Department of Radiology [address] [place] [id number] Patient Name: MABEL MOSER : 1960 Sex: F Age: Race: White Pt. Location: 29 Patient Status: D Ordered Date: 08/17/2021 10:00:00 AM Completed Date: 01/10/2022 10:24 AM Requesting Provider: ROBERT JOHNSTON Attending Provider: ROBERT JOHNSTON Report Copy To: ANGLE SANTANA Signs & Symptoms: M54.12 Radiculopathy, cervical region I10 History: Giselle seeing Dr. Johnston after Comments: Exam: CT CERVICAL SPINE WITHOUT CONTRAST Exam: Cervical spine CT without contrast dated 01/10/2022. HISTORY: Neck pain. ] COMPARISON: Cervical spine MRI dated 12/30/2020. TECHNIQUE: Multidetector axial images with coronal and sagittal reconstructions performed at the CT scanner are obtained through the cervical spine. FINDINGS: Abnormal widening of the joint between the left lateral masses of C1 and C2 with cortical erosions on both sides of the joint, with extension into the left facet joint at C1-C2. Abnormal erosion of the left side of the base of the dens. Differential considerations are left sided atlantoaxial and facet joint septic arthritis, gout, inflammatory arthritis. Recommend cervical spine MRI with IV contrast. Moderate facet degenerative changes from C3-C4 through C7-T1. Minimal grade I anterolisthesis of C5 on C6 secondary to facet degenerative changes. Vertebral body heights are maintained at all levels. No perivertebral soft tissue masses or abnormal fluid collections. Lung apices are unremarkable. IMPRESSION: Abnormal widening of the joint between the left lateral masses of C1 and C2 with cortical erosions on both sides of the joint, with extension into the left facet joint at C1-C2. Abnormal erosion of the left side of the base of the dens. Differential considerations are left sided atlantoaxial and facet joint septic arthritis, gout, inflammatory arthritis. Recommend cervical spine MRI with IV contrast. All CT scans at this facility use dose modulation, iterative reconstruction, and/or weight based dosing when appropriate to reduce radiation dose to as low as reasonably achievable. Electronically signed: Ayleen Ny. Transcribed by: [email or web address], User Resident: Electronically Signed by: AYLEEN [place] @ 01/12/2022 12:32 PM Normal The [facility] OSMOLALITYon 01-07-2022 Osmolality [Osmolality] 286 mosm/kg Normal 275-295 [facility] Comment on above: Performed By: #### O SMO ####[facility] Mzqzhpudcz[address] [place] [address]Dr. Airam Tripathi CBC AUTO DIFFon 01-06-2022 BASO # 0.0 103/ul Normal 0.0-0.1 [facility] Comment on above: Performed By: #### C BC ####[facility] Ydhkesrxnz2674 [place] [address]Dr. Selenaneil Tripathi Basophils/100 WBC (Bld) 0.3 % Normal 0.2-2.0 [facility] Comment on above: Performed By: #### C BC ####[facility] Ohmyznmuwt17[address] [place], [place] [address]Dr. Selenaneil Tripathi EO # 0.2 103/ul Normal 0.0-0.7 [facility] Comment on above: Performed By: #### C BC ####[facility] Fssxxatdyh164[address] [place], [place] [address]Dr. Airam Tripathi Eosinophils/100 WBC (Bld) 4.1 % Normal 0.9-7.0 [facility] Comment on above: Performed By: #### C BC ####[facility] Kwxngksvln6[address] [place], [place] [address]Dr. Airam Deuce Erythrocyte distribution width (RBC) [Ratio] 12.9 % Normal 11.0-15.0 [facility] Comment on above: Performed By: #### C BC ####[facility] Uuzxnbfdjr4[address] [place], [place] [address]Dr. Selenaneil Tripathi Hematocrit (Bld) [Volume fraction] 34.2 % Critically low 36.0-48.0 [facility] Comment on above: Performed By: #### C BC ####[facility] Nyybtydoss69[address] [place], [place] [address]Dr. Selenaneil Tripathi Hemoglobin (Bld) [Mass/Vol] 10.6 g/dL Critically low 12.0-16.0 [facility] Comment on above: Performed By: #### C BC ####[facility] Dtbzfscvuq6[address] [place], [place] [address]Dr. Airam Tripathi IG # 0.03 10e3/ul Normal 0.00-0.03 [facility] Comment on above: Performed By: #### C BC ####[facility] Cmgbipaxke4028 [place] [address]DrKianna Selenaneil Tripathi IG % 0.5 % Normal 0.0-0.5 [facility] Comment on above: Performed By: #### C BC ####[facility] Nrxumzhivn8621 [place] [address]DrKianna Airam Deuce LYMPH # 1.1 103/ul Critically low 1.2-3.8 [facility] Comment on above: Performed By: #### C BC ####[facility] Dnypefnvlf3622 [place] [address]DrKianna Selenaneil Tripathi Lymphocytes/100 WBC (Bld) 18.2 % Critically low 20.5-60.0 [facility] Comment on above: Performed By: #### C BC ####[facility] Doffambkzk[address] [place], [place] [address]DrKianna Selenaneil Tripathi MANUAL DIFF REQ NO Normal [facility] Comment on above: Performed By: #### C BC ####[facility] Etqsryicji7777 [place] [address]Dr. Airam Deuce MCH (RBC) [Entitic mass] 29.6 pg Normal 26.7-34.0 [facility] Comment on above: Performed By: #### C BC ####[facility] Bhwsfbaykk[address] [place], [place] [address]DrKianna Airam Deuce MCHC (RBC) [Mass/Vol] 31.0 g/dL Normal 29.9-35.2 [facility] Comment on above: Performed By: #### C BC ####[facility] Ifoeuyxolg[address] [place], [place] [id number] Airam Deuce MCV (RBC) [Entitic vol] 95.5 fL Normal 81.0-99.0 [facility] Comment on above: Performed By: #### C BC ####[facility] Sexugaofks4443 [place] [address]DrKianna Tripathi MONO # 0.5 103/ul Normal 0.3-0.8 [facility] Comment on above: Performed By: #### C BC ####[facility] Pgigcqzygz6037 [place] [id number]. Airam Tripathi Monocytes/100 WBC (Bld) 8.5 % Normal 1.7-12.0 [facility] Comment on above: Performed By: #### C BC ####[facility] Nnsywbalds6825 [place] [id number]. Airam Tripathi NEUT # 4.0 103/ul Normal 1.4-6.5 [facility] Comment on above: Performed By: #### C BC ####[facility] Bfeuhcjwmr6803 [place] [id number]. Airam Tripathi Neutrophils/100 WBC (Bld) 68.4 % Normal 43.0-75.0 [facility] Comment on above: Performed By: #### C BC ####[facility] Mbyceporse8655 [place] [address]Dr. Airam Tripathi Platelet mean volume (Bld) [Entitic vol] 10.1 fL Normal 9.5-13.5 [facility] Comment on above: Performed By: #### C BC ####[facility] Bnzvxhkpnd38[address] [place] [address]Dr. Airam Tripathi PLT 304 103/ul Normal 150-450 [facility] Comment on above: Performed By: #### C BC ####[facility] Zwkvcvnojv4826 [place] [id number]. Airam Tripathi RBC 3.58 106/ul Critically low 4.20-5.40 [facility] Comment on above: Performed By: #### C BC ####[facility] Gxxfdxzqzg9043 [place] [id number]. Airam Tripathi WBC 5.9 103/ul Normal 4.0-11.0 [facility] Comment on above: Performed By: #### C BC ####[facility] Fghqeyavzt3854 [place] [id number]. Airam Tripathi MG MAMM RT DIAG FUon 01-06-2 022 MG MAMM RT DIAG FU Normal [facility] PROF 14(COMP METB)on 022 Albumin [Mass/Vol] 3.1 g/dL Critically low 3.4-5.0 [facility] Comment on above: Performed By: #### C MP ####[facility] Hvkvxhyxyr25[address] [place], [place] [address]Dr. Airam Tripathi Albumin/Globulin [Mass ratio] 1.0 {ratio} Normal [facility] Comment on above: Performed By: #### C MP ####[facility] Bcrwfublye[address] [place], [place] [address]Dr. Airam Tripathi ALP [Catalytic activity/Vol] 143 U/L Critically high 46-116 [facility] Comment on above: Performed By: #### C MP ####[facility] Hyjhkdmgho6[address] [place], [place] [address]Dr. Airam Tripathi ALT [Catalytic activity/Vol] 23 U/L Normal 14-59 [facility] Comment on above: Performed By: #### C MP ####[facility] Bappuoygqf5[address] [place], [place] [address]Dr. Airam Tripathi Anion gap [Moles/Vol] 13.2 mmol/L Normal [facility] Comment on above: Performed By: #### C MP ####[facility] Cnoorzfrsp4[address] [place], [place] [address]Dr. Airam Tripathi AST [Catalytic activity/Vol] 20 U/L Normal 15-37 [facility] Comment on above: Performed By: #### C MP ####[facility] Wsrrtcuzzp327[address] [place], [place] [address]Dr. Airam Tripathi Bilirubin [Mass/Vol] 0.3 mg/dL Normal 0.2-1.0 [facility] Comment on above: Performed By: #### C MP ####[facility] Mgaddnjgul9[address] [place], [place] [address]Dr. Airam Tripathi Calcium [Mass/Vol] 8.2 mg/dL Critically low 8.5-10.1 [facility] Comment on above: Performed By: #### C MP ####[facility] Lmqnimnypo64[address] [place], [place] [address]Dr. Airam Tripathi Chloride [Moles/Vol] 100 mmol/L Normal 98-107 [facility] Comment on above: Performed By: #### C MP ####[facility] Bbiqjpzjxc70[address] [place] [address]Dr. Airam Deuce CO2 [Moles/Vol] 26.0 mmol/L Normal 21.0-32.0 [facility] Comment on above: Performed By: #### C MP ####[facility] Pobbzerqgp[address] [place], [place] [address]Dr. Airam Deuce Creatinine [Mass/Vol] 1.52 mg/dL Critically high 0.55-1.02 [facility] Comment on above: Performed By: #### C MP ####[facility] Thatmkncqp6832[address] [place], [place] [address]Dr. Airam Deuce EGFR-AF VENEZUELAN 42 mL/min/1.73m2 Critically low >=60 [facility] Comment on above: Performed By: #### C MP ####[facility] Pjkpjwjodc[address] [place], [place] [address]Dr. Airam Deuce EGFR-NON AF VENEZUELAN 35 mL/min/1.73m2 Critically low >=60 [facility] Comment on above: Performed By: #### C MP ####[facility] Oliduyiirt5[address] [place], [place] [address]Dr. Selenaneil Tripathi Globulin (S) [Mass/Vol] 3.2 g/dL Normal [facility] Comment on above: Performed By: #### C MP ####[facility] Pbvndtslbk319[address] [place], [place] [address]Dr. Selenaneil Tripathi Glucose [Mass/Vol] 84 mg/dL Normal 74-106 [facility] Comment on above: Performed By: #### C MP ####[facility] Tcaxrbdhot9425[address] [place], [place] [address]Dr. Airam Tripathi Potassium [Moles/Vol] 4.2 mmol/L Normal 3.5-5.1 [facility] Comment on above: Performed By: #### C MP ####[facility] [address]uqogjibxb039[address] [place], [place] [address]Dr. Airam Tripathi Protein [Mass/Vol] 6.3 g/dL Critically low 6.4-8.2 [facility] Comment on above: Performed By: #### C MP ####[facility] Cjmrhjbjul26[address] [place] [address]Dr. Selenaneil Tripathi Sodium [Moles/Vol] 135 mmol/L Critically low 136-145 [facility] Comment on above: Performed By: #### C MP ####[facility] Vmxjmkmhxx14[address] [place], [place] [address]Dr. Selenaneil Deuce Urea nitrogen [Mass/Vol] 36.0 mg/dL Critically high 7.0-18.0 [facility] Comment on above: Performed By: #### C MP ####[facility] Riremdbyrk[address] [place], [place] [address]Dr. Airam Tripathi Urea nitrogen/Creatinine [Mass ratio] 23.7 mg/mg Normal [facility] Comment on above: Performed By: #### C MP ####[facility] Ygergaganq[address] [place], [place] [address]Dr. Selenaneil Deuce US BREAST RIGHT LIMITEDon US BREAST RIGHT LIMITED Normal [facility] OSMOLALITYon 12-31-2021 Osmolality [Osmolality] 280 mosm/kg Normal 275-295 [facility] Comment on above: Performed By: #### O SMO ####[facility] Fgiljogsma[address] [place], [place] [address]Dr. Selenaneil Deuce CBC AUTO DIFFon 12-30-2021 BASO # 0.0 103/ul Normal 0.0-0.1 [facility] Comment on above: Performed By: #### C BC ####[facility] [address] [place] [address]Dr. Airam Tripathi Basophils/100 WBC (Bld) 0.5 % Normal 0.2-2.0 [facility] Comment on above: Performed By: #### C BC ####[facility] [address] [place] [address]Dr. Airam Tripathi EO # 0.3 103/ul Normal 0.0-0.7 [facility] Comment on above: Performed By: #### C BC ####[facility] Im[address]ylvffch[address] [place] [address]Dr. Airam Tripathi Eosinophils/100 WBC (Bld) 3.5 % Normal 0.9-7.0 [facility] Comment on above: Performed By: #### C BC ####[facility] Dyrdguowzo[address] [place], [place] [address]Dr. Airam Tripathi Erythrocyte distribution width (RBC) [Ratio] 13.0 % Normal 11.0-15.0 [facility] Comment on above: Performed By: #### C BC ####[facility] Jpjbtfgqrn[address] [place], [place] [address]Dr. Airam Tripathi Hematocrit (Bld) [Volume fraction] 34.2 % Critically low 36.0-48.0 [facility] Comment on above: Performed By: #### C BC ####[facility] Krrwvyskpb[address] [place], [place] [address]Dr. Airam Tripathi Hemoglobin (Bld) [Mass/Vol] 10.4 g/dL Critically low 12.0-16.0 [facility] Comment on above: Performed By: #### C BC ####[facility] Hbikewsafo[address] [place], [place] [address]Dr. Airam Tripathi IG # 0.04 10e3/ul Critically high 0.00-0.03 [facility] Comment on above: Performed By: #### C BC ####[facility] Lrzuzoziov[address] [place], [place] [address]Dr. Airam Tripathi IG % 0.5 % Normal 0.0-0.5 [facility] Comment on above: Performed By: #### C BC ####[facility] Teqxhkrciz[address] [place], [place] [address]Dr. Airam Tripathi LYMPH # 2.1 103/ul Normal 1.2-3.8 [facility] Comment on above: Performed By: #### C BC ####[facility] Trffqmemhh[address] [place], [place] [address]Dr. Airam Tripathi Lymphocytes/100 WBC (Bld) 23.5 % Normal 20.5-60.0 [facility] Comment on above: Performed By: #### C BC ####[facility] [address] [place] [id number]. Airam Deuce MANUAL DIFF REQ NO Normal [facility] Comment on above: Performed By: #### C BC ####[facility] Itbpcxrkjh[address] [place] [id number]. Selenaneil Tripathi MCH (RBC) [Entitic mass] 29.4 pg Normal 26.7-34.0 [facility] Comment on above: Performed By: #### C BC ####[facility] Dufpf[address]fyqh[address] [place] [id number]. Airam Deuce MCHC (RBC) [Mass/Vol] 30.4 g/dL Normal 29.9-35.2 [facility] Comment on above: Performed By: #### C BC ####[facility] Cvvxxigqei[address] [place], [place] [address]Dr. Airam Tripathi MCV (RBC) [Entitic vol] 96.6 fL Normal 81.0-99.0 [facility] Comment on above: Performed By: #### C BC ####[facility] Pvwbnnsfzy[address] [place], [place] [address]Dr. Selenaneil Deuce MONO # 0.6 103/ul Normal 0.3-0.8 [facility] Comment on above: Performed By: #### C BC ####[facility] Zvdytfwikf[address] [place], [place] [address]Dr. Airam Tripathi Monocytes/100 WBC (Bld) 6.4 % Normal 1.7-12.0 [facility] Comment on above: Performed By: #### C BC ####[facility] Msvuhkgmvm84[address] [place], [place] [address]Dr. Airam Tripathi NEUT # 5.8 103/ul Normal 1.4-6.5 [facility] Comment on above: Performed By: #### C BC ####[facility] Zbmgbsflwz[address] [place], [place] [id number]. Airam Tripathi Neutrophils/100 WBC (Bld) 65.6 % Normal 43.0-75.0 [facility] Comment on above: Performed By: #### C BC ####[facility] [address]zpaison[address] [place] [address]Dr. Selenaneil Deuce Platelet mean volume (Bld) [Entitic vol] 9.2 fL Critically low 9.5-13.5 [facility] Comment on above: Performed By: #### C BC ####[facility] Thobtknbyi[address] [place] [address]Dr. Airam Tripathi PLT 338 103/ul Normal 150-450 [facility] Comment on above: Performed By: #### C BC ####[facility] Zrfnssphse[address] [place] [address]Dr. Airam Tripathi RBC 3.54 106/ul Critically low 4.20-5.40 [facility] Comment on above: Performed By: #### C BC ####[facility] Ehcrbntorl64[address] [place], [place] [address]Dr. Airam Tripathi WBC 8.9 103/ul Normal 4.0-11.0 [facility] Comment on above: Performed By: #### C BC ####[facility] Dcpbpkbwcw2026[address] [place], [place] [address]Dr. Airam Tripathi MG MAMM SCREEN 3D GUMARO CADon 12-30-2021 MG MAMM SCREEN 3D GUMARO CAD Normal [facility] PROF 14(COMP METB)on 022 Albumin [Mass/Vol] 3.6 g/dL Normal 3.4-5.0 [facility] Comment on above: Performed By: #### C MP ####[facility] Vsgscuvram[address] [place], [place] [address]Dr. Airam Tripathi Albumin/Globulin [Mass ratio] 1.1 {ratio} Normal [facility] Comment on above: Performed By: #### C MP ####[facility] Awezslracq[address] [place], [place] [address]Dr. Airam Tripathi ALP [Catalytic activity/Vol] 117 U/L Critically high 46-116 [facility] Comment on above: Performed By: #### C MP ####[facility] Xztwitofkn[address] [place], [place] [address]Dr. Airam Tripathi ALT [Catalytic activity/Vol] 26 U/L Normal 14-59 [facility] Comment on above: Performed By: #### C MP ####[facility] [address]riquvg[address] [place] [address]Dr. Airam Tripathi Anion gap [Moles/Vol] 11.2 mmol/L Normal Th e [facility] Comment on above: Performed By: #### C MP ####[facility] Uyxrfqtxkh[address] [place] [address]Dr. Airam Tripathi AST [Catalytic activity/Vol] 29 U/L Normal 15-37 [facility] Comment on above: Performed By: #### C MP ####[facility] Hhvolegygd18[address] [place], [place] [address]Dr. Airam Deuce Bilirubin [Mass/Vol] 0.3 mg/dL Normal 0.2-1.0 [facility] Comment on above: Performed By: #### C MP ####[facility] Zcpgpsefcv[address] [place], [place] [address]Dr. Airam Deuce Calcium [Mass/Vol] 9.1 mg/dL Normal 8.5-10.1 [facility] Comment on above: Performed By: #### C MP ####[facility] Bowomikkgo8[address] [place], [place] [address]Dr. Airam Deuce Chloride [Moles/Vol] 101 mmol/L Normal 98-107 [facility] Comment on above: Performed By: #### C MP ####[facility] Ytmaebcxtm[address] [place], [place] [address]Dr. Airam Tripathi CO2 [Moles/Vol] 26.8 mmol/L Normal 21.0-32.0 [facility] Comment on above: Performed By: #### C MP ####[facility] Iatdnreuzv37[address] [place], [place] [address]Dr. Airam Deuce Creatinine [Mass/Vol] 1.56 mg/dL Critically high 0.55-1.02 [facility] Comment on above: Performed By: #### C MP ####[facility] Shngdxnnio9622[address] [place], [place] [address]Dr. Airam Deuce EGFR-AF VENEZUELAN 41 mL/min/1.73m2 Critically low >=60 [facility] Comment on above: Performed By: #### C MP ####[facility] [address]jbp[address] [place] [address]Dr. Airam Deuce EGFR-NON AF VENEZUELAN 34 mL/min/1.73m2 Critically low >=60 [facility] Comment on above: Performed By: #### C MP ####[facility] [address]vbu[address]vp[address] [place] [address]Dr. Selenaneil Deuce Globulin (S) [Mass/Vol] 3.3 g/dL Normal [facility] Comment on above: Performed By: #### C MP ####[facility] Idzsflyzyh[address] [place] [address]Dr. Airam Tripathi Glucose [Mass/Vol] 84 mg/dL Normal 74-106 [facility] Comment on above: Performed By: #### C MP ####[facility] Kodbncrocf[address] [place], [place] [address]Dr. Airam Tripathi Potassium [Moles/Vol] 5.0 mmol/L Normal 3.5-5.1 [facility] Comment on above: Performed By: #### C MP ####[facility] Mdrqvtsvql[address] [place], [place] [address]Dr. Airam Deuce Protein [Mass/Vol] 6.9 g/dL Normal 6.4-8.2 [facility] Comment on above: Performed By: #### C MP ####[facility] L[address]pgsahxw[address] [place] [address]Dr. Airam Tripathi Sodium [Moles/Vol] 134 mmol/L Critically low 136-145 [facility] Comment on above: Performed By: #### C MP ####[facility] T[address]ltsbpg[address] [place], [place] [id number]. Airam Tripathi Urea nitrogen [Mass/Vol] 28.0 mg/dL Critically high 7.0-18.0 [facility] Comment on above: Performed By: #### C MP ####[facility] Elxounkznr[address] [place], [place] [address]Dr. Airam Tripathi Urea nitrogen/Creatinine [Mass ratio] 17.9 mg/mg Normal [facility] Comment on above: Performed By: #### C MP ####[facility] Llbybpkjze[address] [place], [place] [address]DrKianna Tripathi OSMOLALITYon 12-24-2021 Osmolality [Osmolality] 287 mosm/kg Normal 275-295 [facility] Comment on above: Performed By: #### O SMO ####[facility] Znmkpcefxc0410[address] [place], [place] [address]Dr. Airam Tripathi CBC AUTO DIFFon 12-22-2021 BASO # 0.0 103/ul Normal 0.0-0.1 [facility] Comment on above: Performed By: #### C BC ####[facility] Jkhhmmchek[address] [place], [place] [address]DrKianna Tripathi Basophils/100 WBC (Bld) 0.5 % Normal 0.2-2.0 [facility] Comment on above: Performed By: #### C BC ####[facility] Vydwxbfyza[address] [place], [place] [address]DrKianna Tripathi EO # 0.4 103/ul Normal 0.0-0.7 [facility] Comment on above: Performed By: #### C BC ####[facility] Dewvjxfevs[address]69[address] [place], [place] [address]DrKianna Tripathi Eosinophils/100 WBC (Bld) 6.4 % Normal 0.9-7.0 [facility] Comment on above: Performed By: #### C BC ####[facility] Hzeykefeuu[address] [place], [place] [address]DrKianna Tripathi Erythrocyte distribution width (RBC) [Ratio] 13.2 % Normal 11.0-15.0 [facility] Comment on above: Performed By: #### C BC ####[facility] Jufimlebfp9814[address] [place], [place] [address]DrKianna Tripathi Hematocrit (Bld) [Volume fraction] 32.2 % Critically low 36.0-48.0 [facility] Comment on above: Performed By: #### C BC ####[facility] Ytsfnifovo[address] [place], [place] [address]DrKianna Tripathi Hemoglobin (Bld) [Mass/Vol] 10.1 g/dL Critically low 12.0-16.0 [facility] Comment on above: Performed By: #### C BC ####[facility] Xrpvwyaznj[address] [place] [address]DrKianna Tripathi IG # 0.03 10e3/ul Normal 0.00-0.03 [facility] Comment on above: Performed By: #### C BC ####[facility] Fgjwfcujah4327[address] [place], [place] [address]DrKianna Tripathi IG % 0.5 % Normal 0.0-0.5 [facility] Comment on above: Performed By: #### C BC ####[facility] Jifcqndwgo5[address] [place], [place] [address]DrKianna Tripathi LYMPH # 1.3 103/ul Normal 1.2-3.8 [facility] Comment on above: Performed By: #### C BC ####[facility] Gweuvkmtrs7[address] [place], [place] [address]DrKianna Tripathi Lymphocytes/100 WBC (Bld) 20.5 % Normal 20.5-60.0 [facility] Comment on above: Performed By: #### C BC ####[facility] Zfzsfpndvy[address] [place], [place] [address]DrKianna Tripathi MANUAL DIFF REQ NO Normal [facility] Comment on above: Performed By: #### C BC ####[facility] Vhxrazvzox4937[address] [place], [place] [address]DrKianna Tripathi MCH (RBC) [Entitic mass] 30.1 pg Normal 26.7-34.0 [facility] Comment on above: Performed By: #### C BC ####[facility] Cawalpyjca[address] [place], [place] [address]DrKianna Tripathi MCHC (RBC) [Mass/Vol] 31.4 g/dL Normal 29.9-35.2 [facility] Comment on above: Performed By: #### C BC ####[facility] Pxzoygbsrp[address]65[address] [place], [place] [address]DrKianna Tripathi MCV (RBC) [Entitic vol] 95.8 fL Normal 81.0-99.0 [facility] Comment on above: Performed By: #### C BC ####[facility] Txhdyrckta6746[address] [place], [place] [address]Dr. Airam Tripathi MONO # 0.5 103/ul Normal 0.3-0.8 [facility] Comment on above: Performed By: #### C BC ####[facility] Bwipbwdeye[address] [place], [place] [address]Dr. Airam Tripathi Monocytes/100 WBC (Bld) 7.4 % Normal 1.7-12.0 [facility] Comment on above: Performed By: #### C BC ####[facility] Pvuhzpxwtv0320[address] [place], [place] [address]Dr. Airam Tripathi NEUT # 3.9 103/ul Normal 1.4-6.5 [facility] Comment on above: Performed By: #### C BC ####[facility] Topzdcbahr[address] [place], [place] [address]Dr. Airam Tripathi Neutrophils/100 WBC (Bld) 64.7 % Normal 43.0-75.0 [facility] Comment on above: Performed By: #### C BC ####[facility] Uugrspyick10[address] [place], [place] [address]DrKianna Airam Tripathi Platelet mean volume (Bld) [Entitic vol] 9.2 fL Critically low 9.5-13.5 [facility] Comment on above: Performed By: #### C BC ####[facility] Eurdteejir0618[address] [place], [place] [address]Dr. Airam Deuce PLT 309 103/ul Normal 150-450 [facility] Comment on above: Performed By: #### C BC ####[facility] Nxjxjgfavy9537[address] [place], [place] [address]Dr. Airam Deuce RBC 3.36 106/ul Critically low 4.20-5.40 [facility] Comment on above: Performed By: #### C BC ####[facility] Apykcetvgc[address] [place], [place] [address]Dr. Airam Trpiathi WBC 6.1 103/ul Normal 4.0-11.0 [facility] Comment on above: Performed By: #### C BC ####[facility] M[address]uovso[address] [place] [address]Dr. Airam Tripathi PROF 14(COMP METB)on 022 Albumin [Mass/Vol] 3.2 g/dL Critically low 3.4-5.0 [facility] Comment on above: Performed By: #### C MP ####[facility] Yewehxbeuf2790[address] [place], [place] [address]Dr. Airam Tripathi Albumin/Globulin [Mass ratio] 1.1 {ratio} Normal [facility] Comment on above: Performed By: #### C MP ####[facility] Cldsioesgy4822[address] [place], [place] [address]Dr. Airam Tripathi ALP [Catalytic activity/Vol] 123 U/L Critically high 46-116 [facility] Comment on above: Performed By: #### C MP ####[facility] Yiftrzeplh8038[address] [place], [place] [address]Dr. Airam Tripathi ALT [Catalytic activity/Vol] 26 U/L Normal 14-59 [facility] Comment on above: Performed By: #### C MP ####[facility] Znyqrferwc2780[address] [place], [place] [address]Dr. Airam Tripathi Anion gap [Moles/Vol] 14.5 mmol/L Normal Th [facility] Comment on above: Performed By: #### C MP ####[facility] Qiczmachdg7285[address] [place], [place] [address]Dr. Airam Tripathi AST [Catalytic activity/Vol] 23 U/L Normal 15-37 [facility] Comment on above: Performed By: #### C MP ####[facility] Fflldmrnww2636[address] [place], [place] [address]Dr. Airam Tripathi Bilirubin [Mass/Vol] 0.3 mg/dL Normal 0.2-1.0 [facility] Comment on above: Performed By: #### C MP ####[facility] Yylypwqtkx8196[address] [place], [place] [address]Dr. Airam Tripathi Calcium [Mass/Vol] 8.2 mg/dL Critically low 8.5-10.1 Th e [facility] Comment on above: Performed By: #### C MP ####[facility] Ikefoarjsq[address] [place] [address]Dr. Airam Tripathi Chloride [Moles/Vol] 102 mmol/L Normal 98-107 [facility] Comment on above: Performed By: #### C MP ####[facility] Zqhlhqnhhy12[address] [place], [place] [address]Dr. Airam Tripathi CO2 [Moles/Vol] 23.2 mmol/L Normal 21.0-32.0 [facility] Comment on above: Performed By: #### C MP ####[facility] Xoetxkwuud[address]16[address] [place], [place] [address]Dr. Airam Tripathi Creatinine [Mass/Vol] 1.98 mg/dL Critically high 0.55-1.02 [facility] Comment on above: Performed By: #### C MP ####[facility] Vvsmnymigb[address] [place], [place] [address]Dr. Airam Tripathi EGFR-AF VENEZUELAN 31 mL/min/1.73m2 Critically low >=60 [facility] Comment on above: Performed By: #### C MP ####[facility] Zdyickbddu2654[address] [place], [place] [address]Dr. Airam Tripathi EGFR-NON AF VENEZUELAN 26 mL/min/1.73m2 Critically low >=60 [facility] Comment on above: Performed By: #### C MP ####[facility] Laqrshqhjm17[address] [place], [place] [address]Dr. Airam Tripathi Globulin (S) [Mass/Vol] 3.0 g/dL Normal [facility] Comment on above: Performed By: #### C MP ####[facility] Fyluaskdxl1469[address] [place], [place] [address]Dr. Airam Tripathi Glucose [Mass/Vol] 131 mg/dL Critically high 74-106 T [facility] Comment on above: Performed By: #### C MP ####[facility] Rocvuiuysb0786[address] [place], [place] [address]Dr. Airam Tripathi Potassium [Moles/Vol] 4.7 mmol/L Normal 3.5-5.1 [facility] Comment on above: Performed By: #### C MP ####[facility] Jthjtkqllr[address] [place] [address]Dr. Airam Deuce Protein [Mass/Vol] 6.2 g/dL Critically low 6.4-8.2 Th [facility] Comment on above: Performed By: #### C MP ####[facility] Zmknkhuwaa54[address] [place], [place] [address]Dr. Airam Tripathi Sodium [Moles/Vol] 135 mmol/L Critically low 136-145 Th [facility] Comment on above: Performed By: #### C MP ####[facility] Gobnisyedh9435[address] [place], [place] [address]Dr. Airam Tripathi Urea nitrogen [Mass/Vol] 37.0 mg/dL Critically high 7.0-18.0 [facility] Comment on above: Performed By: #### C MP ####[facility] Xxknkqnlml0169[address] [place], [place] [address]Dr. Airam Tripathi Urea nitrogen/Creatinine [Mass ratio] 18.7 mg/mg Normal [facility] Comment on above: Performed By: #### C MP ####[facility] Osbzvfgaak[address] [place], [place] [address]DrKianna Airam Deuce OSMOLALITYon 12-18-2021 Osmolality [Osmolality] 271 mosm/kg Critically low 275-295 [facility] Comment on above: Performed By: #### O SMO ####[facility] Tvbezyaxpb4249[address] [place], [place] [address]Dr. Airam Deuce CBC AUTO DIFFon 12-16-2021 BASO # 0.0 103/ul Normal 0.0-0.1 [facility] Comment on above: Performed By: #### C BC ####[facility] Xcxxxgdmzx[address] [place], [place] [address]Dr. Airam Deuce Basophils/100 WBC (Bld) 0.6 % Normal 0.2-2.0 [facility] Comment on above: Performed By: #### C BC ####[facility] Osuweoicqt8822[address] [place], [place] [address]Dr. Airam Tripathi EO # 0.1 103/ul Normal 0.0-0.7 [facility] Comment on above: Performed By: #### C BC ####[facility] Qyybmcjxti93[address] [place] [address]Dr. Airam Tripathi Eosinophils/100 WBC (Bld) 2.1 % Normal 0.9-7.0 [facility] Comment on above: Performed By: #### C BC ####[facility] Orkhviiyjk5280[address] [place], [place] [address]Dr. Airam Tripathi Erythrocyte distribution width (RBC) [Ratio] 13.1 % Normal 11.0-15.0 [facility] Comment on above: Performed By: #### C BC ####[facility] Oazitbuuof[address] [place], [place] [address]Dr. Airam Tripathi Hematocrit (Bld) [Volume fraction] 33.8 % Critically low 36.0-48.0 [facility] Comment on above: Performed By: #### C BC ####[facility] Xgylaiyrfg[address] [place], [place] [address]Dr. Airam Tripathi Hemoglobin (Bld) [Mass/Vol] 10.7 g/dL Critically low 12.0-16.0 [facility] Comment on above: Performed By: #### C BC ####[facility] Pbqxbvrtyb4[address] [place], [place] [address]Dr. Airam Tripathi IG # 0.02 10e3/ul Normal 0.00-0.03 [facility] Comment on above: Performed By: #### C BC ####[facility] Psbpbmxmia4114[address] [place], [place] [address]Dr. Airam Tripathi IG % 0.3 % Normal 0.0-0.5 [facility] Comment on above: Performed By: #### C BC ####[facility] Iuungimtwb7701[address] [place], [place] [address]Dr. Airam Tripathi LYMPH # 1.2 103/ul Normal 1.2-3.8 [facility] Comment on above: Performed By: #### C BC ####[facility] [address]wy[address] [place] [address]Dr. Airam Tripathi Lymphocytes/100 WBC (Bld) 17.3 % Critically low 20.5-60.0 [facility] Comment on above: Performed By: #### C BC ####[facility] Ifwvxtcdsq[address] [place] [address]Dr. Airam Tripathi MANUAL DIFF REQ NO Normal [facility] Comment on above: Performed By: #### C BC ####[facility] Vgsnnasuht[address] [place] [address]Dr. Airam Tripathi MCH (RBC) [Entitic mass] 30.2 pg Normal 26.7-34.0 [facility] Comment on above: Performed By: #### C BC ####[facility] Gcowmsgqln[address] [place], [place] [address]Dr. Airam Tripathi MCHC (RBC) [Mass/Vol] 31.7 g/dL Normal 29.9-35.2 [facility] Comment on above: Performed By: #### C BC ####[facility] Jckbdyhtld[address] [place], [place] [address]Dr. Airam Tripathi MCV (RBC) [Entitic vol] 95.5 fL Normal 81.0-99.0 [facility] Comment on above: Performed By: #### C BC ####[facility] Olofqqvq[address] [place], [place] [address]Dr. Airam Tripathi MONO # 0.5 103/ul Normal 0.3-0.8 [facility] Comment on above: Performed By: #### C BC ####[facility] Elgpypqrgy[address] [place], [place] [address]Dr. Airam Tripathi Monocytes/100 WBC (Bld) 6.8 % Normal 1.7-12.0 [facility] Comment on above: Performed By: #### C BC ####[facility] Pqu[address]oskby[address] [place], [place] [address]Dr. Airam Tripathi NEUT # 4.9 103/ul Normal 1.4-6.5 [facility] Comment on above: Performed By: #### C BC ####[facility] Rypdlhgvpq[address] [place], [place] [address]Dr. Airam Deuce Neutrophils/100 WBC (Bld) 72.9 % Normal 43.0-75.0 [facility] Comment on above: Performed By: #### C BC ####[facility] [address] [place] [address]Dr. Airam Tripathi Platelet mean volume (Bld) [Entitic vol] 9.0 fL Critically low 9.5-13.5 [facility] Comment on above: Performed By: #### C BC ####[facility] [address] [place] [address]Dr. Airam Tripathi PLT 297 103/ul Normal 150-450 [facility] Comment on above: Performed By: #### C BC ####[facility] Igusfvlblv[address] [place] [address]Dr. Airam Tripathi RBC 3.54 106/ul Critically low 4.20-5.40 [facility] Comment on above: Performed By: #### C BC ####[facility] R[address]rxeet[address] [place] [address]Dr. Airam Tripathi WBC 6.8 103/ul Normal 4.0-11.0 [facility] Comment on above: Performed By: #### C BC ####[facility] Qbbiiqruvo[address] [place] [address]Dr. Airam Tripathi PROF 14(COMP METB)on 022 Albumin [Mass/Vol] 3.2 g/dL Critically low 3.4-5.0 [facility] Comment on above: Performed By: #### C MP ####[facility] [address]hvpo[address] [place] [address]Dr. Airam Tripathi Albumin/Globulin [Mass ratio] 1.0 {ratio} Normal [facility] Comment on above: Performed By: #### C MP ####[facility] [address]uddtp[address] [place] [address]Dr. Airam Tripathi ALP [Catalytic activity/Vol] 109 U/L Normal 46-116 [facility] Comment on above: Performed By: #### C MP ####[facility] W[address]mrqueak[address] [place] [address]Dr. Airam Tripathi ALT [Catalytic activity/Vol] 23 U/L Normal 14-59 [facility] Comment on above: Performed By: #### C MP ####[facility] S[address]jenkz[address] [place] [address]Dr. Airam Tripathi Anion gap [Moles/Vol] 11.6 mmol/L Normal Th e [facility] Comment on above: Performed By: #### C MP ####[facility] Avpnsiznbp[address] [place] [address]Dr. Airam Deuce AST [Catalytic activity/Vol] 24 U/L Normal 15-37 [facility] Comment on above: Performed By: #### C MP ####[facility] [address]whhkg[address] [place], [place] [address]Dr. Airam Deuce Bilirubin [Mass/Vol] 0.2 mg/dL Normal 0.2-1.0 [facility] Comment on above: Performed By: #### C MP ####[facility] Rurwccyjax[address] [place], [place] [address]Dr. Airam Deuce Calcium [Mass/Vol] 8.6 mg/dL Normal 8.5-10.1 [facility] Comment on above: Performed By: #### C MP ####[facility] Vqyxmgcvag[address] [place], [place] [address]Dr. Airam Deuce Chloride [Moles/Vol] 100 mmol/L Normal 98-107 [facility] Comment on above: Performed By: #### C MP ####[facility] [address]vojigss[address] [place] [address]Dr. Airam Deuce CO2 [Moles/Vol] 24.7 mmol/L Normal 21.0-32.0 [facility] Comment on above: Performed By: #### C MP ####[facility] Lcwijfauor[address] [place], [place] [address]Dr. Airam Deuce Creatinine [Mass/Vol] 1.11 mg/dL Critically high 0.55-1.02 [facility] Comment on above: Performed By: #### C MP ####[facility] [address]wq[address] [place], [place] [address]Dr. Airam Deuce EGFR-AF VENEZUELAN >60 Normal >=60 [facility] Comment on above: Performed By: #### C MP ####[facility] [address] [place] [address]Dr. Airam Deuce EGFR-NON AF VENEZUELAN 50 mL/min/1.73m2 Critically low >=60 [facility] Comment on above: Performed By: #### C MP ####[facility] [address]dt[address]wue[address] [place] [address]Dr. Airam Deuce Globulin (S) [Mass/Vol] 3.1 g/dL Normal [facility] Comment on above: Performed By: #### C MP ####[facility] Ashnwayogo[address] [place], [place] [address]Dr. Airam Tripathi Glucose [Mass/Vol] 79 mg/dL Normal 74-106 [facility] Comment on above: Performed By: #### C MP ####[facility] Wwbryuichs[address] [place] [address]Dr. Airam Tripathi Potassium [Moles/Vol] 5.3 mmol/L Critically high 3.5-5.1 [facility] Comment on above: Performed By: #### C MP ####[facility] [address]shuwurr[address] [place], [place] [address]Dr. Selenaneil Deuce Protein [Mass/Vol] 6.3 g/dL Critically low 6.4-8.2 Th [facility] Comment on above: Performed By: #### C MP ####[facility] Uiv[address]fih[address] [place], [place] [address]Dr. Airam Tripathi Sodium [Moles/Vol] 131 mmol/L Critically low 136-145 Th [facility] Comment on above: Performed By: #### C MP ####[facility] [address]focbmg[address] [place], [place] [address]Dr. Airam Tripathi Urea nitrogen [Mass/Vol] 20.0 mg/dL Critically high 7.0-18.0 [facility] Comment on above: Performed By: #### C MP ####[facility] [address]smswwcvfw[address] [place], [place] [address]Dr. Airam Tripathi Urea nitrogen/Creatinine [Mass ratio] 18.0 mg/mg Normal [facility] Comment on above: Performed By: #### C MP ####[facility] Vcfoulzjgg[address] [place], [place] [address]Dr. Airam Tripathi OSMOLALITYon 12-09-2021 Osmolality [Osmolality] 279 mosm/kg Normal 275-295 [facility] Comment on above: Performed By: #### O SMO ####[facility] V[address]umjgxar[address] [place], [place] [address]Dr. Airam Deuce CBC AUTO DIFFon 12-07-2021 BASO # 0.0 103/ul Normal 0.0-0.1 [facility] Comment on above: Performed By: #### C BC ####[facility] [address]qdnzzyt[address] [place], [place] [address]Dr. Airam Tripathi Basophils/100 WBC (Bld) 0.5 % Normal 0.2-2.0 [facility] Comment on above: Performed By: #### C BC ####[facility] Nbfyrxrhpz[address] [place], [place] [address]Dr. Selenaneil Tripathi EO # 0.4 103/ul Normal 0.0-0.7 [facility] Comment on above: Performed By: #### C BC ####[facility] [address]ucfesngu[address] [place], [place] [address]Dr. Airam Deuce Eosinophils/100 WBC (Bld) 6.3 % Normal 0.9-7.0 [facility] Comment on above: Performed By: #### C BC ####[facility] Mygtubwflu[address] [place], [place] [address]Dr. Airam Deuce Erythrocyte distribution width (RBC) [Ratio] 13.3 % Normal 11.0-15.0 [facility] Comment on above: Performed By: #### C BC ####[facility] Ytzjvklnbi[address] [place], [place] [address]DrKianna Airam Deuce Hematocrit (Bld) [Volume fraction] 29.5 % Critically low 36.0-48.0 [facility] Comment on above: Performed By: #### C BC ####[facility] [address] [place] [address]Dr. Airam Tripathi Hemoglobin (Bld) [Mass/Vol] 9.1 g/dL Critically low 12.0-16.0 [facility] Comment on above: Performed By: #### C BC ####[facility] [address]xw[address] [place] [address]Dr. Airam Tripathi IG # 0.04 10e3/ul Critically high 0.00-0.03 [facility] Comment on above: Performed By: #### C BC ####[facility] Lfpt[address]ccg[address] [place] [address]Dr. Airam Tripathi IG % 0.7 % Critically high 0.0-0.5 [facility] Comment on above: Performed By: #### C BC ####[facility] [address]lrcd[address] [place] [address]Dr. Airam Tripathi LYMPH # 1.3 103/ul Normal 1.2-3.8 [facility] Comment on above: Performed By: #### C BC ####[facility] [address] [place], [place] [address]Dr. Airam Tripathi Lymphocytes/100 WBC (Bld) 20.9 % Normal 20.5-60.0 [facility] Comment on above: Performed By: #### C BC ####[facility] Viworhjuum[address] [place], [place] [address]Dr. Airam Tripathi MANUAL DIFF REQ NO Normal [facility] Comment on above: Performed By: #### C BC ####[facility] [address]zthrhib[address] [place], [place] [address]Dr. Airam Tripathi MCH (RBC) [Entitic mass] 30.1 pg Normal 26.7-34.0 [facility] Comment on above: Performed By: #### C BC ####[facility] [address]foicdwrb[address] [place], [place] [address]Dr. Airam Tripathi MCHC (RBC) [Mass/Vol] 30.8 g/dL Normal 29.9-35.2 [facility] Comment on above: Performed By: #### C BC ####[facility] Zqlfnmileq[address] [place], [place] [address]Dr. Airam Deuce MCV (RBC) [Entitic vol] 97.7 fL Normal 81.0-99.0 [facility] Comment on above: Performed By: #### C BC ####[facility] Pdqucaotgz[address] [place] [address]Dr. Airam Tripathi MONO # 0.4 103/ul Normal 0.3-0.8 [facility] Comment on above: Performed By: #### C BC ####[facility] Koyxiaqxrs[address] [place] [address]Dr. Sleenaneil Tripathi Monocytes/100 WBC (Bld) 6.6 % Normal 1.7-12.0 [facility] Comment on above: Performed By: #### C BC ####[facility] Cfmjrqyiti[address] [place] [address]Dr. Airam Deuce NEUT # 4.0 103/ul Normal 1.4-6.5 [facility] Comment on above: Performed By: #### C BC ####[facility] F[address]awseaex[address] [place] [address]Dr. Selenaneil Tripathi Neutrophils/100 WBC (Bld) 65.0 % Normal 43.0-75.0 [facility] Comment on above: Performed By: #### C BC ####[facility] Kmjqyojsfs[address] [place] [address]Dr. Selenaneil Tripathi Platelet mean volume (Bld) [Entitic vol] 9.4 fL Critically low 9.5-13.5 [facility] Comment on above: Performed By: #### C BC ####[facility] Z[address]wfxutc[address] [place] [address]Dr. Airam Deuce PLT 224 103/ul Normal 150-450 [facility] Comment on above: Performed By: #### C BC ####[facility] Zvacurqgno3474 [place] [address]Dr. Selenaneil Deuce RBC 3.02 106/ul Critically low 4.20-5.40 [facility] Comment on above: Performed By: #### C BC ####[facility] Vedjrbuync[address] [place] [address]Dr. Airam Tripathi WBC 6.1 103/ul Normal 4.0-11.0 [facility] Comment on above: Performed By: #### C BC ####[facility] Etrivbcccy[address] [place] [address]DrKianna Tripathi PROF 14(COMP METB)on 022 Albumin [Mass/Vol] 2.8 g/dL Critically low 3.4-5.0 [facility] Comment on above: Performed By: #### C MP ####[facility] Kyzvpbrvdi[address] [place] [address]Dr. Airam Tripathi Albumin/Globulin [Mass ratio] 1.1 {ratio} Normal [facility] Comment on above: Performed By: #### C MP ####[facility] Hrjtytbgfi64[address] [place] [address]Dr. Airam Tripathi ALP [Catalytic activity/Vol] 116 U/L Normal 46-116 [facility] Comment on above: Performed By: #### C MP ####[facility] [address]htlrkhi[address] [place], [place] [address]Dr. Airam Tripathi ALT [Catalytic activity/Vol] 23 U/L Normal 14-59 [facility] Comment on above: Performed By: #### C MP ####[facility] Nftickavbh[address] [place], [place] [address]Dr. Airam Tripathi Anion gap [Moles/Vol] 12.1 mmol/L Normal [facility] Comment on above: Performed By: #### C MP ####[facility] Mbvciktleu[address] [place], [place] [address]Dr. Airam Tripathi AST [Catalytic activity/Vol] 23 U/L Normal 15-37 [facility] Comment on above: Performed By: #### C MP ####[facility] Oexvxvnjuk[address] [place], [place] [address]Dr. Airam Tripathi Bilirubin [Mass/Vol] 0.2 mg/dL Normal 0.2-1.0 [facility] Comment on above: Performed By: #### C MP ####[facility] Udgmfysqxw[address] [place], [place] [address]Dr. Airam Tripathi Calcium [Mass/Vol] 8.1 mg/dL Critically low 8.5-10.1 Th [facility] Comment on above: Performed By: #### C MP ####[facility] Surwkhvwqr[address] [place] [address]Dr. Airam Tripathi Chloride [Moles/Vol] 105 mmol/L Normal 98-107 [facility] Comment on above: Performed By: #### C MP ####[facility] [address]twxqcvbel[address] [place], [place] [address]Dr. Airam Tripathi CO2 [Moles/Vol] 22.1 mmol/L Normal 21.0-32.0 [facility] Comment on above: Performed By: #### C MP ####[facility] [address]nbdofetyv[address] [place], [place] [address]Dr. Airam Deuce Creatinine [Mass/Vol] 1.06 mg/dL Critically high 0.55-1.02 [facility] Comment on above: Performed By: #### C MP ####[facility] Lauwxmhedn[address] [place], [place] [address]Dr. Airam Deuce EGFR-AF VENEZUELAN >60 Normal >=60 [facility] Comment on above: Performed By: #### C MP ####[facility] [address]berwvqyb[address] [place], [place] [address]Dr. Airam Deuce EGFR-NON AF VENEZUELAN 53 mL/min/1.73m2 Critically low >=60 [facility] Comment on above: Performed By: #### C MP ####[facility] Drhxydmabn[address] [place], [place] [address]Dr. Airam Deuce Globulin (S) [Mass/Vol] 2.6 g/dL Normal [facility] Comment on above: Performed By: #### C MP ####[facility] Ephmdtgqep[address] [place], [place] [address]Dr. Selenaneil Deuce Glucose [Mass/Vol] 109 mg/dL Critically high 74-106 T [facility] Comment on above: Performed By: #### C MP ####[facility] Rfewnkpwzt[address] [place], [place] [address]Dr. Selenaneil Deuce Potassium [Moles/Vol] 4.2 mmol/L Normal 3.5-5.1 [facility] Comment on above: Performed By: #### C MP ####[facility] [address]jlf[address] [place] [address]Dr. Airam Tripathi Protein [Mass/Vol] 5.4 g/dL Critically low 6.4-8.2 Th [facility] Comment on above: Performed By: #### C MP ####[facility] Ofisuexbhb[address] [place] [address]Dr. Airam Tripathi Sodium [Moles/Vol] 135 mmol/L Critically low 136-145 Th [facility] Comment on above: Performed By: #### C MP ####[facility] F[address]qfvcwpk4[address] [place] [address]Dr. Airam Tripathi Urea nitrogen [Mass/Vol] 15.0 mg/dL Normal 7.0-18.0 [facility] Comment on above: Performed By: #### C MP ####[facility] Itpcfzbipe[address] [place] [address]Dr. Airam Tripathi Urea nitrogen/Creatinine [Mass ratio] 14.2 mg/mg Normal [facility] Comment on above: Performed By: #### C MP ####[facility] [address]qmvrvlr[address] [place], [place] [address]Dr. Airam Tripathi Operative Reporton Operative Report MR#: [id number] S [facility] Pt. Name: Mabel Moser Room #: 0C Discharge Date: Birthdate: 1960 OPERATIVE REPORT DATE OF SURGERY: 08/19/2021 SURGEON: Carlos Reza M.D. PREOPERATIVE DIAGNOSIS: Right shoulder rotator cuff tear, supraspinatus. POSTOPERATIVE DIAGNOSES: 1. Right shoulder rotator cuff tear, supraspinatus. 2. Right shoulder rotator cuff tear, subscapularis. 3. Right shoulder proximal biceps tendon tear. PROCEDURE PERFORMED: 1. Right shoulder rotator cuff repair, supraspinatus. 2. Right shoulder rotator cuff repair, subscapularis. 3. Right shoulder proximal biceps tenotomy. FORESTRY INSTRUCTOR: Alex Curnutte, M.D. ANESTHESIA: General. INDICATIONS: The patient is a 61-year-old woman, who has been having right shoulder pain and weakness after a trip and fall in the shower approximately 1 year ago. She has tried physical therapy. She has tried anti-inflammatories. She continues to have pain and weakness. MRI demonstrated a high-grade, 90% tear of the supraspinatus. I therefore offered her right shoulder rotator cuff repair and any other indicated procedures. Risks and benefits were discussed in the clinic. Informed consent was obtained here as well and she was scheduled for the procedure on 08/19/2021. PROCEDURE IN DETAIL: After confirmation and marking of the correct surgical extremity in the preoperative holding area, the patient was brought back to the operating suite and placed in the supine position. All pressure points were adequately padded. General endotracheal anesthesia was smoothly induced. Preoperative antibiotics were administered. The right upper extremity was prepped and draped in a sterile fashion. After observation of a surgical time-out procedure using 2 separate patient identifiers, we began with the case. We first started infiltration of the subacromial space in the proposed incisions with 20 mL of 1% lidocaine with epinephrine. We then created a standard arthroscopy portals and began with a diagnostic arthroscopy. We first inspected the superior labrum. No tears. There was however a full-thickness tear of the subscapularis, which required repair with a 5.5 mm Mitek Healix suture anchor double-loaded with Dynacord. This was passed into the tendon with interlocked George-Spike and mattress sutures to anatomically repair the subscapularis. The long head of biceps tendon demonstrated fraying and inflammation directly adjacent to 2 sites of inflammation, the subscapularis tear and the full-thickness supraspinatus tear. We therefore tenotomized this. We switched to the subacromial space and found the supraspinatus tear. This was repaired with another 5.5 mm Healix suture anchor double-loaded with Dynacord. This also was passed with George-Spike and mattress sutures to anatomically repair the supraspinatus. At this point, all instruments were removed and the shoulder was drained of fluid. The portal incisions were closed using simple nylon sutures. A sterile dry dressing was applied. A Polar Care unit was applied for postoperative pain control. A sling with abduction pillow was applied to protect the repair during the healing. The patient was then awakened, extubated, and brought back to the PACU in stable condition. I was present, scrubbed, and actively participating for all chamberlain portions of the surgery. ESTIMATED BLOOD LOSS: Minimal. COMPLICATIONS: None. DISPOSITION: PACU in stable condition. POSTOPERATIVE PLAN: I will see this patient back in 10 to 14 days' time for suture removal and initiation of physical therapy. Electronically Signed by: Carlos Reza M.D. 08/23/2021 09:28 A Carlos Reza M.D. Date Dict: 08/19/2021/11:02 A/Carlos Reza M.D. Date Trans: 08/19/2021 11:37 A/carter [id number] cc: Angle Santana M.D. [address], [place] [facility] [id number] Normal The [facility] POC GLUCOSE LABon 08-19-2021 Glucose [Mass/Vol] 77 mg/dL Normal 70-100 The [facility] Comment on above: Performed By: #### [id number] #### [facility] [address] [facility]. [address] 04-05-2021 CNPN Telephone (ANDREW) -- MABEL MOSER ([id number]) 1960 F Date Time Provider Department 04/05/21 YEVGENIY FORD During your visit today, we recorded the following information about you: Chana Gallegos [facility] 04/05/2021 7:57 AM Signed Records faxed to the cancer center at [facility]. Patient to follow with Dr. Liu. Release signed. Allergies As of Date: 04/05/2021 Noted Allergy Reaction AUGMENTIN (AMOXICILLIN-POT CLAVUL*03/18/2016 6 - Diarrhea 11 - Vomiting BETADINE (POVIDONE-IODINE) 03/18/2016 14 - Other: See Comments Comments: Peels skin SULFA (SULFONAMIDE ANTIBIOTICS) 03/18/2016 11 - Vomiting Date Reviewed: 11/06/2019 Reviewed by: Sandra Carpenter - Fully Assessed Reason for Visit: Records faxed [Other] Prescriptions as of 04/05/2021 - cyanocobalamin 1,000 mcg/mL INJECT 1 ML INTRAMUSCULARLY ONCE EVERY MONTH - desvenlafaxine ER (PRISTIQ) 50 mg 24 hr tablet Take 50 mg by mouth. - furosemide (LASIX) 40 mg tablet Take 40 mg by mouth once daily. - triamterene-hydrochlorothi azide (MAXZIDE) 75-50 mg per tablet Take 1 tablet by mouth once daily. - predniSONE (DELTASONE) 20 mg tablet - liothyronine (CYTOMEL) 5 mcg tablet - ferrous sulfate 325 mg (65 mg iron) tablet Take 325 mg by mouth daily with breakfast. - metoprolol succinate ER (TOPROL XL) 25 mg 24 hr tablet Take 25 mg by mouth once daily. - B Complex Vitamins capsule Take 1 capsule by mouth once daily. - Cholecalciferol, Vitamin D3, 2,000 unit cap Take 1.25 Units by mouth. - rizatriptan (MAXALT) 10 mg tablet TAKE 1 TABLET BY MOUTH AT ONSET OF MIGRAINE-MAY REPEAT IN 2 HOURS- - alendronate (FOSAMAX) 70 mg tablet Take 70 mg by mouth once each week. - amitriptyline (ELAVIL) 100 mg tablet Take 150 mg by mouth daily at bedtime. - butorphanol (STADOL NS) 10 mg/mL nasal spray as directed. - calcitriol (ROCALTROL) 0.25 mcg capsule TAKE 1 CAPSULE ONCE A DAY ORALLY 90 DAY(S)( TO SOON) - fentaNYL (DURAGESIC) 50 mcg/hr 1 Patch every 72 hours. - metoclopramide HCl (REGLAN) 5 mg tablet TAKE 1 TABLET BY MOUTH 30 MINUTES BEFORE EACH MEAL AND AT BEDTIME - oxyCODONE-acetaminophen (PERCOCET) 5-325 mg tablet TAKE 1 TABLET BY MOUTH EVERY 6 HOURS NEEDED FOR LUMBAR DISC DISEASE - KLOR-CON 10 10 mEq tablet Take 10 mEq by mouth twice daily. - primidone (MYSOLINE) 50 mg tablet TAKE 4 TABLETS BY MOUTH EVERY DAY AT BEDTIME - ondansetron orally disintegrating (ZOFRAN ODT) 4 mg disintegrating tablet Take 4 mg by mouth every 8 hours as needed. - temazepam (RESTORIL) 30 mg cap 30 mg daily at bedtime. - fluticasone-salmeterol (ADVAIR DISKUS) 500-50 mcg/dose dsdv Inhale 1 Puff as instructed twice daily. - pantoprazole DR (PROTONIX) 40 mg tablet Take 40 mg by mouth twice daily. - tiZANidine (ZANAFLEX) 4 mg tablet Take 4 mg by mouth every 6 hours as needed. - VIIBRYD 40 mg 40 mg daily with breakfast. - levothyroxine (SYNTHROID) 88 mcg tablet Take 88 mcg by mouth once daily. - hydrOXYzine pamoate (VISTARIL) 25 mg capsule Take 25 mg by mouth three times daily as needed. - dicyclomine (BENTYL) 20 mg tablet Take 20 mg by mouth every 6 hours as needed. - ALPRAZolam (XANAX) 0.25 mg tablet Take 0.25 mg by mouth at bedtime as needed. Problem List As Of Date 04/05/2021 Noted Resolved Anemia [D64.9] 03/18/2016 Renal insufficiency [N28.9] 03/18/2016 Abnormal weight loss [R63.4] 03/18/2016 Iron deficiency anemia [D50.9] 03/18/2016 Anemia due to vitamin B12 deficiency [D51.9] 03/18/2016 H/O gastric bypass [Z98.84] 03/18/2016 CKD (chronic kidney disease) stage 3, GFR 30-59*07/21/2016 Chronic obstructive pulmonary disease (HCC) [J4*03/02/2017 Displacement of lumbar intervertebral disc with*08/15/2016 Fibromyalgia [M79.7] 08/15/2016 Fluid overload [E87.70] 12/12/2016 Heart failure (HCC) [I50.9] 12/12/2016 Hypothyroidism [E03.9] 03/02/2017 Intractable migraine without status migrainosus*11/16/2016 Morbid (severe) obesity due to excess calories *02/17/2017 Other fatigue [R53.83] 01/13/2017 Other specified anxiety disorders [F41.8] 03/02/2017 Spinal stenosis, lumbar region, without neuroge*08/15/2016 Encounter Status:Closed by CHANA LEE on 04/05/21 Normal [facility] OBSOLETEon 01-11-2021 OBSOLETE Refill (HEMASA) -- MABEL MOSER ([id number]) 1960 F Date Time Provider Department 01/11/21 YEVGENIY FORD During your visit today, we recorded the following information about you: Allergies As of Date: 01/11/2021 Noted Allergy Reaction AUGMENTIN (AMOXICILLIN-POT CLAVUL*03/18/2016 6 - Diarrhea 11 - Vomiting BETADINE (POVIDONE-IODINE) 03/18/2016 14 - Other: See Comments Comments: Peels skin SULFA (SULFONAMIDE ANTIBIOTICS) 03/18/2016 11 - Vomiting Date Reviewed: 11/06/2019 Reviewed by: Sandra Carpenter - Fully Assessed Reason for Visit: Refill Request [94] Visit Diagnoses:H/O gastric bypass [Z98.84] Other vitamin B12 deficiency anemia [D51.8] Iron deficiency anemia, unspecified iron deficiency anemia type [D50.9] CKD (chronic kidney disease) stage 3, GFR 30-59 ml/min ([facility]) [N18.30] Order(s):cyanocobalamin 1,000 mcg/mLINJECT 1 ML INTRAMUSCULARLY ONCE EVERY MONTHDisp: 12 mLRfl: 0 Prescriptions as of 01/12/2021 - cyanocobalamin 1,000 mcg/mL INJECT 1 ML INTRAMUSCULARLY ONCE EVERY MONTH - desvenlafaxine ER (PRISTIQ) 50 mg 24 hr tablet Take 50 mg by mouth. - furosemide (LASIX) 40 mg tablet Take 40 mg by mouth once daily. - triamterene-hydrochlorothi azide (MAXZIDE) 75-50 mg per tablet Take 1 tablet by mouth once daily. - predniSONE (DELTASONE) 20 mg tablet - liothyronine (CYTOMEL) 5 mcg tablet - ferrous sulfate 325 mg (65 mg iron) tablet Take 325 mg by mouth daily with breakfast. - metoprolol succinate ER (TOPROL XL) 25 mg 24 hr tablet Take 25 mg by mouth once daily. - B Complex Vitamins capsule Take 1 capsule by mouth once daily. - Cholecalciferol, Vitamin D3, 2,000 unit cap Take 1.25 Units by mouth. - rizatriptan (MAXALT) 10 mg tablet TAKE 1 TABLET BY MOUTH AT ONSET OF MIGRAINE-MAY REPEAT IN 2 HOURS- - alendronate (FOSAMAX) 70 mg tablet Take 70 mg by mouth once each week. - amitriptyline (ELAVIL) 100 mg tablet Take 150 mg by mouth daily at bedtime. - butorphanol (STADOL NS) 10 mg/mL nasal spray as directed. - calcitriol (ROCALTROL) 0.25 mcg capsule TAKE 1 CAPSULE ONCE A DAY ORALLY DAY(S)( TO SOON) - fentaNYL (DURAGESIC) 50 mcg/hr 1 Patch every 72 hours. - metoclopramide HCl (REGLAN) 5 mg tablet TAKE 1 TABLET BY MOUTH 30 MINUTES BEFORE EACH MEAL AND AT BEDTIME - oxyCODONE-acetaminophen (PERCOCET) 5-325 mg tablet TAKE 1 TABLET BY MOUTH EVERY 6 HOURS NEEDED FOR LUMBAR DISC DISEASE - KLOR-CON 10 10 mEq tablet Take 10 mEq by mouth twice daily. - primidone (MYSOLINE) 50 mg tablet TAKE 4 TABLETS BY MOUTH EVERY DAY AT BEDTIME - ondansetron orally disintegrating (ZOFRAN ODT) 4 mg disintegrating tablet Take 4 mg by mouth every 8 hours as needed. - temazepam (RESTORIL) 30 mg cap 30 mg daily at bedtime. - fluticasone-salmeterol (ADVAIR DISKUS) 500-50 mcg/dose dsdv Inhale 1 Puff as instructed twice daily. - pantoprazole DR (PROTONIX) 40 mg tablet Take 40 mg by mouth twice daily. - tiZANidine (ZANAFLEX) 4 mg tablet Take 4 mg by mouth every 6 hours as needed. - VIIBRYD 40 mg 40 mg daily with breakfast. - levothyroxine (SYNTHROID) 88 mcg tablet Take 88 mcg by mouth once daily. - hydrOXYzine pamoate (VISTARIL) 25 mg capsule Take 25 mg by mouth three times daily as needed. - dicyclomine (BENTYL) 20 mg tablet Take 20 mg by mouth every 6 hours as needed. - ALPRAZolam (XANAX) 0.25 mg tablet Take 0.25 mg by mouth at bedtime as needed. Problem List As Of Date 01/11/2021 Noted Resolved Anemia [D64.9] 03/18/2016 Renal insufficiency [N28.9] 03/18/2016 Abnormal weight loss [R63.4] 03/18/2016 Iron deficiency anemia [D50.9] 03/18/2016 Anemia due to vitamin B12 deficiency [D51.9] 03/18/2016 H/O gastric bypass [Z98.84] 03/18/2016 CKD (chronic kidney disease) stage 3, GFR 30-59*07/21/2016 Chronic obstructive pulmonary disease (HCC) [J4*03/02/2017 Displacement of lumbar intervertebral disc with*08/15/2016 Fibromyalgia [M79.7] 08/15/2016 Fluid overload [E87.70] 12/12/2016 Heart failure (HCC) [I50.9] 12/12/2016 Hypothyroidism [E03.9] 03/02/2017 Intractable migraine without status migrainosus*11/16/2016 Morbid (severe) obesity due to excess calories *02/17/2017 Other fatigue [R53.83] 01/13/2017 Other specified anxiety disorders [F41.8] 03/02/2017 Spinal stenosis, lumbar region, without neuroge*08/15/2016 Prescriptions ordered this encounter Disp Refills Start End CYANOCOBALAMIN (VIT B-12) 1,000 MCG/* 12 mL 0 01/12/2021 01/12/2022 Route: INTRAMUSCULA Sig: INJECT 1 ML INTRAMUSCULARLY ONCE EVERY MONTH Medications Discontinued During This Encounter Prescriptions - cyanocobalamin (VITAMIN B-12) 1,000 mcg/mL (Discontinued) Inject 1 mL intramuscularly once every month. Encounter Status:Closed by YEVGNEIY FORD on 01/12/21 Normal [facility] Vital Signs Date Time Vital Sign Value Performing Clinician Facility 04-04-2023 16:20-0400 Body height 158.75 cm Raeann Kirkpatrick Other [facility] Other 04-04-2023 16:20-0400 Body mass index (BMI) [Ratio] 31.46 kg/m2 Raeann Mishras Other [facility] Other 04-04-2023 16:20-0400 Body temperature 98 [degF] Raeann Mishras Other [facility] Other 04-04-2023 16:20-0400 Body weight 79.29 kg Raeann Mishras Other [facility] Other 04-04-2023 16:20-0400 Diastolic blood pressure 81 mm[Hg] Raeann Mishras Other [facility] Other 04-04-2023 16:20-0400 Respiratory rate 18 /min Raeann Mishras Other [facility] Other 04-04-2023 16:20-0400 SaO2% (BldA) [Mass fraction] 98 % Raeann Mishras Other [facility] Other 04-04-2023 16:20-0400 Systolic blood pressure 133 mm[Hg] Azariel Mishras Other [facility] Other 10-28-2022 22:23-0400 Body temperature 97.4 [degF] MD Angle Santana Work Phone: [facility] 10-28-2022 22:00-0400 Diastolic blood pressure 74 mm[Hg] MD Angle Santana Work Phone: [facility] 10-28-2022 22:00-0400 Heart rate 72 /min MD Angle Santana Work Phone: [facility] 10-28-2022 22:00-0400 Respiratory rate 20 /min MD Angle Santana Work Phone: [facility] 10-28-2022 22:00-0400 SaO2% (BldA) [Mass fraction] 97 % MD Angle Santana Work Phone: [facility] 10-28-2022 22:00-0400 Systolic blood pressure 169 mm[Hg] MD Angle Santana Work Phone: [facility] 10-28-2022 17:54-0400 Body height 157.48 cm MD Angle Santana Work Phone: [facility] 10-28-2022 17:54-0400 Body weight 83.7 kg MD Angle Santana Work Phone: [facility] 09-27-2022 12:00-0400 Body height 158.75 cm Raeann [employer] Other [facility] Other 09-27-2022 12:00-0400 Body mass index (BMI) [Ratio] 31.78 kg/m2 Donnieariel [employer] Other [facility] Other 09-27-2022 12:00-0400 Body temperature 96.1 [degF] Raeann [employer] Other [facility] Other 09-27-2022 12:00-0400 Body weight 80.11 kg [employer]ariel [employer] Other [facility] Other 09-27-2022 12:00-0400 Diastolic blood pressure 82 mm[Hg] Azariel [employer] Other [facility] Other 09-27-2022 12:00-0400 Respiratory rate 18 /min Azariel Bakhous Other [facility] Other 09-27-2022 12:00-0400 SaO2% (BldA) [Mass fraction] 99 % Aziz Bakhous Other [facility] Other 09-27-2022 12:00-0400 Systolic blood pressure 140 mm[Hg] Aziz Bakhous Other [facility] Other 04-12-2022 14:00-0400 Body height 158.75 cm Aziz Bakhous Other [facility] Other 04-12-2022 14:00-0400 Body mass index (BMI) [Ratio] 30.13 kg/m2 Azariel Bakhous Other [facility] Other 04-12-2022 14:00-0400 Body temperature 97.6 [degF] Aziz Bakhous Other [facility] Other 04-12-2022 14:00-0400 Body weight 75.93 kg Azariel Bakhous Other [facility] Other 04-12-2022 14:00-0400 Diastolic blood pressure 95 mm[Hg] Aziz Bakhous Other [facility] Other 04-12-2022 14:00-0400 Respiratory rate 18 /min Aziz Bakhous Other [facility] Other 04-12-2022 14:00-0400 SaO2% (BldA) [Mass fraction] 98 % Aziz Bakhous Other [facility] Other 04-12-2022 14:00-0400 Systolic blood pressure 175 mm[Hg] Raeann Kirkpatrick Other [facility] Other 06-16-2021 16:20-0500 Body height 158.75 cm Los Grissom Other [facility] Other 06-16-2021 16:20-0500 Body mass index (BMI) [Ratio] 30.88 kg/m2 [facility] [employer] Other [facility] Other 06-16-2021 16:20-0500 Body temperature 96.4 [degF] [facility] Other [facility] Other 06-16-2021 16:20-0500 Body weight 77.84 kg Los Grissom Other [facility] Other 06-16-2021 16:20-0500 Diastolic blood pressure 88 mm[Hg] [facility] Other [facility] Other 06-16-2021 16:20-0500 Respiratory rate 18 /min Los Grissom Other [facility] Other 06-16-2021 16:20-0500 SaO2% (BldA) [Mass fraction] 99 % [facility]issom Other [facility] Other 06-16-2021 16:20-0500 Systolic blood pressure 137 mm[Hg] [facility] Other [facility] Other Encounters Encounter Date Encounter Type Care Provider Facility Start: 04-04-2023 End: 04-04-2023 ambulatory Aziz Bakhous Other [facility] Other Start: 04-04-2023 Office outpatient visit 25 minutes Aziz Bakkendalls [facility] Start: 04-03-2023 End: 04-03-2023 ambulatory Aziz Bakhous Other [facility] Other Start: 04-03-2023 Telephone encounter Azariel Bakkendalls [facility] Start: 02-22-2023 End: 02-22-20[facility]: 02-16-2023 ambulatory DUNCAN DENNIS [facility] Start: 01-13-2023 End: 01-14-2023 ambulatory SHERLY [facility] Start: 12-15-2022 End: 12-16-2022 ambulatory [facility] Start: 12-12-2022 End: 12-12-2022 ambulatory Azariel Mishras Other [facility] Other Start: 12-12-2022 Telephone encounter Raeann Mishras [facility] Start: 12-08-2022 End: 12-08-2022 ambulatory Raeann Mishras Other [place] [employer] Other Start: 12-08-2022 Telephone encounter Raeann Mishras [facility] Start: 11-30-2022 End: 11-30-2022 ambulatory [facility] Start: 11-22-2022 End: 11-22-[address] ANGLE SANTANA . Facility:[facility] Start: 11-22-2022 End: 11-22-2022 ambulatory SADIE DEL CASTILLO . Facility:[facility] Start: 11-16-2022 End: 11-16-[address] ANGLE SANTANA . Facility:[facility] Start: 11-07-2022 End: 11-07-2022 ambulatory [facility] Start: 11-04-2022 End: 11-05-2022 ambulatory NARENDRANATH CHIDISHMIPATHY . Facility:[facility] Start: 11-03-2022 End: 11-03-[address] ANGLE SANTANA . Facility:[facility] Start: 10-31-2022 ambulatory SANTOS ROUSSEAU . Facili ty:[facility] Start: 10-28-2022 End: 10-29-2022 Emergency department patient visit Angle Santana Facility:[facility] Start: 10-28-2022 End: 10-28-2022 Emergency department patient visit MD Angle Santana Work Phone: [facility] Work Phone: Start: 10-28-2022 End: 10-28-2022 ambulatory RHIANNON [facility] Start: 10-27-2022 End: 10-28-2022 ambulatory SADIE PHOENIXMIPATHKristen . Facility:[facility] Start: 10-25-2022 End: 10-26-2022 Evaluation and management of inpatient DR ANGLE SANTANA . Facility:[facility] Start: 10-19-2022 End: 10-19-[address] ANGLE SANTANA . Facility:[facility] Start: 10-12-2022 End: 10-13-[address] ANGLE SANTANA . Facility:[facility] Start: 10-12-2022 End: 10-12-2022 ambulatory FELECIA MILIAN . Facility:[facility] Start: 10-11-2022 End: 10-11-2022 ambulatory SADIE PHOENIXMIPATHKristen . Facility:[facility] Start: 10-10-2022 End: 10-10-2022 ambulatory ZANDRA GONZALEZ [facility] Start: 10-05-2022 End: 10-07-[address] ANGLE SANTANA . Facility:[facility] Start: 10-05-2022 ambulatory FELECIA MILIAN . Facility: [facility] Start: 09-29-2022 End: 10-04-[address] ANGLE SANTANA . Facility:[facility] Start: 09-27-2022 End: 09-27-2022 ambulatory Raeann Kirkpatrick Other [facility] Other Start: 09-27-2022 Office outpatient visit 25 minutes Raeann Kirkpatrick [facility] Start: 09-21-2022 End: 09-22-[address] ANGLE SANTANA . Facility:[facility] Start: 09-20-2022 End: 09-21-2022 ambulatory SADIE DEL CASTILLO . Facility:[facility] Start: 09-19-2022 End: 09-20-[address] ANGLE SANTANA . Facility:[facility] Start: 09-19-2022 End: 09-20-2022 ambulatory RAEANN KIRKPATRICK Facility:[facility] Start: 08-24-2022 End: 09-12-[address] ANGLE SANTANA . Facility:[facility] Start: 08-23-2022 End: 08-23-2022 ambulatory Sue Leiva Other [facility] Other Start: 08-23-2022 Office outpatient ne w 30 minutes Sue Leiva [facility] Start: 08-16-2022 End: 08-17-[address] ANGLE SANTANA . Facility:[facility] Start: 08-06-2022 End: 08-06-2022 ambulatory NIKKIE DIAB . Facility:[facility] Start: 07-27-2022 End: 07-28-[address] ANGLE SANTANA . Facility:[facility] Start: 07-27-2022 End: 08-16-[address] ANGLE SANTANA . Facility:[facility] Start: 06-29-2022 End: 07-21-[address] ANGLE SANTANA . Facility:[facility] Start: 06-16-2022 End: 06-18-2022 Evaluation and management of inpatient DR ANGLE SANTANA . Facility:[facility] Start: 06-07-2022 End: 06-08-[address] ANGLE SANTANA . Facility:[facility] Start: 05-26-2022 End: 06-13-[address] ANGLE SANTANA . Facility:[facility] Start: 05-17-2022 End: 05-18-[address] ANGLE SANTANA . Facility:[facility] Start: 05-03-2022 End: 05-04-[address] ANGLE SANTANA . Facility:[facility] Start: 04-28-2022 End: 04-29-[address] ANGLE SANTANA . Facility:[facility] Start: 04-28-2022 End: 05-17-[address] ANGLE SANTANA . Facility:[facility] Start: 04-12-2022 End: 04-12-2022 ambulatory Raeann Kirkpatrick Other [facility] Other Start: 04-12-2022 Office outpatient visit 25 minutes Raeann Huntercristin [facility] Start: 04-06-[address] ANGLE SANTANA . Facili ty:[facility] Start: 03-31-2022 End: 04-20-[address] ANGLE SANTANA . Facility:[facility] Start: 03-03-2022 End: 03-22-[address] ANGLE SANTANA . Facility:[facility] Start: 01-27-2022 End: 01-28-[address] ANGLE SANTANA . Facility:[facility] Start: 01-27-2022 End: 02-22-[address] ANGLE SANTANA . Facility:[facility] Start: 01-19-2022 End: 01-20-2022 ambulatory ROBERT JOHNSTON Facility:[facility] Start: 01-11-2022 End: 01-11-[address] ANGLE SANTANA . Facility:[facility] Start: 01-10-2022 End: 01-11-2022 ambulatory Robert Johnston Facility:[facility] Start: 01-06-2022 End: 01-07-[address] ANGLE SANTANA . Facility:[facility] Start: 12-30-2021 End: 01-19-[address] ANGLE SANTANA . Facility:[facility] Start: 12-23-2021 End: 12-24-2021 ambulatory NNAMDI DEJESUS . Facility:[facility] Start: 12-07-2021 End: 12-22-[address] ANGLE SANTANA . Facility:[facility] Start: 12-07-2021 End: 12-07-[address] ANGLE SANTANA . Facility:[facility] Start: 08-19-2021 End: 08-20-2021 ambulatory CARLOS REZA Facility:[facility] Start: 06-16-2021 End: 06-16-2021 ambulatory Los Grissom Other [facility] Other Start: 06-16-2021 Office outpatient visit 25 minutes Los Grissom [facility] Start: 01-14-2019 End: 01-14-2019 Patient encounter procedure [facility] Start: 12-03-2018 End: 12-03-2018 Patient encounter procedure [facility] Procedures Date Procedure Procedure Detail Performing Clinician Start: 10-28-2022 CT of head without contrast MD Angle Santana Work Phone: Start: 10-28-2022 Plain chest X-ray MD Romero Work Phone: Start: 01-14-2019 DISCHARGE PATIENT NIRMAL Start: 01-14-2019 DIET NPO, NOW NIRMAL VICKEY G Start: 01-14-2019 FULL CODE NIRMAL Start: 01-14-2019 INITIATE OXYGEN THER APY PROTOCOL NIRMAL Start: 01-14-2019 NOTIFY PHYSICIAN (SPECIFY) NIRMAL Start: 01-14-2019 NURSING COMMUNICATION W DONNA Start: 01-14-2019 VERIFY INFORMED CONSENT Start: 01-14-2019 VITAL SIGNS NIRMAL Start: 12-03-2018 DISCHARGE PATIENT NIRMAL Start: 12-03-2018 DIET NPO, NOW NIRMAL VICKEY G Start: 12-03-2018 FULL CODE NIRMAL Start: 12-03-2018 INITIATE OXYGEN THER APY PROTOCOL NIRMAL Start: 12-03-2018 NOTIFY PHYSICIAN (SPECIFY) NIRMAL Start: 12-03-2018 NURSING COMMUNICATION W DONNA Start: 12-03-2018 VERIFY INFORMED CONSENT Start: 12-03-2018 VITAL SIGNS NIRMAL Plan of Treatment Date Care Activity Detail Author Patient Education Heart Failure ED [facility] Work Phone: Patient referral [facility] Work Phone: Payers Date Payer Category Payer Self-pay [id number] 2017 Medicare [id number] 2017 Unknown [id number] 1960 Unknown [id number] 2.16.8 40.1.201587.3.579.2.173 1960 Unknown [id number] 2.16.8 40.1.115857.3.579.2.173 1960 Unknown [id number] 2.16.8 40.1.406523.3.579.2.647 1960 Unknown [id number] 2.16.8 40.1.908154.3.579.2.647 1960 Unknown [id number] 2.16.84 0.1.904862.3.579.2.593 1962 Unknown [id number] 2.16.84 0.1.121301.3.579.2.593 1962 Unknown [id number] 2.16.84 0.1.777182.3.579.2.593 1962 Unknown [id number] 2.16.84 0.1.279271.3.579.2.593 1962 Unknown [id number] 2.16.84 0.1.170812.3.579.2.593 1962 Unknown [id number] 2.16.84 0.1.957952.3.579.2.593 1962 Unknown [id number] 2.16.84 0.1.137455.3.579.2.593 1962 Unknown [id number] 2.16.84 0.1.585400.3.579.2.593 1962 Unknown [id number] 2.16.84 0.1.095875.3.579.2.593 1962 Unknown [id number] 2.16.84 0.1.882808.3.579.2.593 1962 Unknown [id number] 2.16.84 0.1.001515.3.579.2.593 1962 Unknown [id number] 2.16.84 0.1.857133.3.579.2.593 1962 Unknown [id number] 2.16.84 0.1.030746.3.579.2.593 1962 Unknown [id number] 2.16.84 0.1.971135.3.579.2.593 1962 Unknown [id number] 2.16.84 0.1.175917.3.579.2.593 1962 Unknown [id number] 2.16.84 0.1.104196.3.579.2.593 1962 Unknown [id number] 2.16.84 0.1.727897.3.579.2.593 1962 Unknown [id number] 2.16.84 0.1.308019.3.579.2.593 1962 Unknown [id number] 2.16.84 0.1.040308.3.579.2.593 1962 Unknown [id number] 2.16.84 0.1.792801.3.579.2.593 1962 Unknown [id number] 2.16.84 0.1.818568.3.579.2.593 1962 Unknown [id number] 2.16.84 0.1.575631.3.579.2.593 1962 Unknown [id number] 2.16.84 0.1.284632.3.579.2.593 1962 Unknown [id number] 2.16.84 0.1.404257.3.579.2.593 1962 Unknown [id number] 2.16.84 0.1.845511.3.579.2.593 1962 Unknown [id number] 2.16.84 0.1.721939.3.579.2.593 1962 Unknown [id number] 2.16.84 0.1.626932.3.579.2.593 1962 Unknown [id number] 2.16.84 0.1.207947.3.579.2.593 1962 Unknown [id number] 2.16.84 0.1.955102.3.579.2.593 1962 Unknown [id number] 2.16.84 0.1.405814.3.579.2.593 1962 Unknown [id number] 2.16.84 0.1.122011.3.579.2.593 1962 Unknown [id number] 2.16.84 0.1.826280.3.579.2.593 1962 Unknown [id number] 2.16.84 0.1.562745.3.579.2.593 1962 Unknown [id number] 2.16.84 0.1.278217.3.579.2.593 1962 Unknown [id number] 2.16.84 0.1.404332.3.579.2.593 1962 Unknown [id number] 2.16.84 0.1.922385.3.579.2.593 1962 Unknown [id number] 2.16.84 0.1.604956.3.579.2.593 1962 Unknown [id number] 2.16.84 0.1.127907.3.579.2.593 1962 Unknown [id number] 2.16.84 0.1.924760.3.579.2.593 1962 Unknown [id number] 2.16.84 0.1.143639.3.579.2.593 1962 Unknown [id number] 2.16.84 0.1.937446.3.579.2.593 1962 Unknown [id number] 2.16.84 0.1.344205.3.579.2.593 1962 Unknown [id number] 2.16.84 0.1.756511.3.579.2.593 1962 Unknown [id number] 2.16.84 0.1.880020.3.579.2.593 1962 Unknown [id number] 2.16.84 0.1.738309.3.579.2.593 1962 Unknown [id number] 2.16.84 0.1.987814.3.579.2.593 1957 Medicaid [id number] Medicare Medicare [id number] Unknown [id number] 2.1 6.840.1.192261.19 Unknown [employer] BC/BS [id number] Unknown [id number] 2.16.8 40.1.379640.3.579.2.531 Social History Date Type Detail Facility Unknown if ever smoked [facility] Other Sex Assigned At Sex Assigned At Bir th [facility] Other Start: 10-28-2022 Tobacco smoking status NHIS Never smoked tobacco (finding) [facility] Start: 1960 Sex Assigned At Female F [facility] Clinical Notes 06-16-2021 to 04-04-2023 Note Date & Type Note Facility 04-04-2023 Evaluation note Encounter Date Diagnosis Assessment Notes Mar, Hyperkalemia (ICD-10 - E87.5) This has resolved. Potassium is within normal limits despite being on ARB Mar, Hypertensive chronic kidney disease with stage 1 through stage 4 chronic kidney disease, or unspecified chronic kidney disease (ICD-10 - I12.9) Blood pressure target below 130/80. Blood pressure seems well controlled. Patient only on Entresto and Bumex for volume management. I asked the patient to continue monitor blood pressure at home and to follow low-salt diet Mar, Hyponatremia (ICD-10 - E87.1) This has resolved with the stopping hydrochlorothiazide Mar, CHF (congestive heart failure) (ICD-10 - I50.9) CHF is clinically compensated on diuretics. Continue low-salt diet. Continue same dose of Bumex Mar, Anemia in chronic kidney disease (ICD-10 - D63.1) Follows with hematology clinic. Last hemoglobin 11.0 g/dL. Mar, Secondary hyperparathyroidism of renal origin (ICD-10 - N25.81) PTH elevated at 140. 25-hydroxy vitamin D is within normal limit. There is no need for active vitamin D. I will continue to monitor PTH since the patient has advanced kidney Mar, Vitamin D deficiency (ICD-10 - E55.9) Patient is taking vitamin D supplement. 25-hydroxy vitamin D is within normal limit Mar, Migraine aura, persistent, intractable (ICD-10 - G43.519) Advised the patient to follow with [facility] neurology clinic Mar, Chronic kidney disease, stage 3b (ICD-10 - N18.32) She has chronic kidney disease stage 3with variable serum creatinine related to diuretics Serum creatinine fluctuate between 1.2 to 1.8 mg deciliter. UA is benign. No proteinuria. Patient currently on Entresto I asked the patient to avoid NSAIDs completely. Blood pressure target is below 130/80. BP is close to target. Volume status well controlled. On Bumex Follow-up with the patient in 4 months Mar, Hyperphosphatemia (ICD-10 - E83.39) Continue PhosLo with meals [facility] Other [id number] NoteRemains stable without worsening symptomsUnCh[facility]08-30-2023 NoteCoronary artery disease is stable Continue GDMT continue risk factor modifications- heart healthy diet, regular exercise as tolerated and continue all medications.[facility] 02-22-2023 NoteNYHC II Continue GDMT- entresto- metoprolol and aldactone have been dc's r/t hypotension. Diuretic therapy- bumex 2 mg bid- Monitor daily weights, I&O, fluid restriction 1.5-2L/day, renal function and electrolytes- please maintain K+>4 and Mg > 2UnChillicothe [facility] 02-22-2023 NoteRCRI- 0???points Class I Risk 3.9???% 30-day risk of , HI, or cardiac arrest From a cardiology perspective pt may proceed with Total knee arthroplasty with Dr Dennis, she is a low to moderate risk for a low to mod risk orthopedic surgery. She does not take any Aspirin, or anticoagulation. Please monitor hemodynamics carefully and prevent any major fluid shifts.[facility]08-30-2023 NotePatient here for 2 mo follow up pulmonary hypertension and hypertension. She was admitted to [facility] twice this past month. She needs cleared for knee replacement surgery with Dr. Dennis. Denies chest pain, lightheadedness, and palpitations. Says SOB is improving. Review of Systems Constitutional: Positive for malaise/fatigue. Cardiovascular: Positive for dyspnea on exertion (improving). Musculoskeletal: Positive for arthritis, back pain and joint pain. All other systems reviewed and are negative.[facility] 02-22-2023 NoteUTP CARDIOLOGY PROGRESS NOTE HPI: Mabel Moser is a 62 y.o. female here for pre surgery risk stratification Patient here for 2 mo follow up pulmonary hypertension and hypertension. She was admitted to [facility] twice this past month. She needs cleared for knee replacement surgery with Dr. Dennis. Denies chest pain, lightheadedness, and palpitations. Says SOB is improving. States that her shortness of breath is no worse than you typical and actually improving. States to walking 1 block or up a flight of stairs her shortness of breath would limit her but she would deny having any chest pain, And this is no different than how it has been for a while per her. Review of Systems Constitutional: Positive for malaise/fatigue. Cardiovascular: Positive for dyspnea on exertion (improving). Musculoskeletal: Positive for arthritis, back pain and joint pain. All other systems reviewed and are negative. Visit Vitals BP 117/77 (BP Location: Left arm, Patient Position: Sitting) Pulse 91 Ht 1.575 m (5' 2 ) Wt 79.4 kg (175 lb) SpO2 96% BMI 32.01 kg/m??? Smoking Status Never BSA 1.86 m??? Allergies Allergen Reactions Betadine [Povidone-Iodine] Cephalexin Other Ciprofloxacin Gabapentin Iodine Unknown Pregabalin Sulfa (Sulfonamide Antibiotics) Other and GI intolerance Sulfamethoxazole-Trimethoprim Unknown Amoxicillin-Pot Clavulanate Other, Diarrhea, Nausea And Vomiting and GI intolerance Medications: Current Outpatient Medications on File Prior to Visit Medication Sig Dispense Refill albuterol 90 mcg/actuation inhaler Inhale 2 puffs every 6 (six) hours if needed. ALPRAZolam (Xanax) 0.5 mg tablet Take 0.5 mg by mouth if needed at bedtime for sleep. amitriptyline (Elavil) 150 mg tablet Take 150 mg by mouth at bedtime. ARIPiprazole (Abilify) 2 mg tablet Take 4 mg by mouth in the morning. bumetanide (Bumex) 1 mg tablet Take 2 mg by mouth in the morning and at bedtime. calcium acetate (Phoslo) 667 mg capsule Take 667 mg by mouth in the morning and at bedtime. DULoxetine (Cymbalta) [address] capsule Take 60 mg by mouth in the morning and at bedtime. fentaNYL (Duragesic) 100 mcg/hr Place 1 patch on the skin infusion over 72 (seventy-two) hours. ipratropium-albuteroL (Duo-Neb) 0.5-2.5 mg/3 mL nebulizer solution Take 3 mL by nebulization if needed in the morning, at noon, and at bedtime. levothyroxine (Synthroid, Levoxyl) 100 mcg tablet Take 100 mcg by mouth in the morning. linaCLOtide (Linzess) 290 mcg capsule Take 290 mcg by mouth. Every other day liothyronine (Cytomel) 25 mcg tablet Take 25 mcg by mouth in the morning. loratadine (Claritin) 10 mg tablet Take 10 mg by mouth in the morning. ondansetron (Zofran) 4 mg tablet Take 4 mg by mouth every 8 (eight) hours if needed for nausea or vomiting. oxyCODONE-acetaminophen (Percocet) 5-325 mg tablet 1 tablet every 6 (six) hours if needed for severe pain (8-10 pain score). pantoprazole (ProtoNix) 40 mg EC tablet Take 40 mg by mouth in the morning and at bedtime. Do not crush, chew, or split. primidone (Mysoline) 50 mg tablet Take 50 mg by mouth in the morning, at noon, in the evening, and at bedtime. sacubitriL-valsartan (Entresto) 97-103 mg tablet Take 1 tablet by mouth in the morning and at bedtime. tiZANidine (Zanaflex) 4 mg capsule Take 4 mg by mouth in the morning, at noon, and at bedtime. [DISCONTINUED] hydrALAZINE (Apresoline) 25 mg tablet Take 1 tablet by mouth if needed. [DISCONTINUED] metoprolol tartrate (Lopressor) 50 mg tablet Take 50 mg by mouth if needed for other. For elevated blood pressure [DISCONTINUED] spironolactone (Aldactone) 100 mg tablet Take 100 mg by mouth 1 (one) time if needed. No current facility-administered medications on file prior to visit. Physical Exam: Constitutional: Appearance: Normal appearance. Without apparent distress, chronically ill HENT: Head: Normocephalic and atraumatic. Nose: Nose normal. Mouth/Throat: Mouth: Mucous membranes are moist. Eyes: Extraocular Movements: Extraocular movements intact. Conjunctiva/sclera: Conjunctivae normal. Neck: Vascular: No JVD. Cardiovascular: Rate and Rhythm: Normal rate and regular rhythm. Pulses: Dorsalis pedis pulses are 3 on the right side and 3on the left side. Posterior tibial pulses are 3 on the right side and 3 on the left side. Heart sounds: RUSB 2/6 systolic murmur, S1 normal and S2 normal. Pulmonary: Effort: Pulmonary effort is normal. Breath sounds: Normal breath sounds. Abdominal: General: Bowel sounds are normal. Palpations: Abdomen is soft. Musculoskeletal: General: Normal range of motion. Cervical back: Normal range of motion. Right lower le+ pitting edema. Left lower le+ pitting edema. Skin: General: Skin is warm and dry. Capillary Refill: Capillary refill takes less than 2 seconds. Neurological: General: No focal deficit present. Mental Status: She is alert and or (more content not included)...[facility]08-24-2023 NoteSubjective: Patient ID: Mabel Moser is a 62 y.o. female. 1960 Chief Complaint: left knee pain HPI: Mabel Moser is a 62 y.o. female who complains of left knee pain that has been troubling her for years. She rates the pain an 8/10, primarily focused over the medial aspect of her left knee. She has experienced significant swelling of the knee and tenderness over the medial aspect. She has tried OT, ibuprofe, CSI with minimal results. Six years ago she underwent TKA of her right knee with Dr. Sylvester. She was pleased with her results and would like to undergo TKA of her left knee. To this point, she has been unable to do so because of a history including bariatric surgery, degenerative disc, CHF, CKD. She believes that the condition of her left knee is now at a point that she would like to undergo TKA of the left knee if at all possible. Social History Occupational History Not on file Tobacco Use Smoking status: Never Smokeless tobacco: Never Substance and Sexual Activity Alcohol use: Not Currently Drug use: Not Currently Sexual activity: Not on file Past Medical History: Diagnosis Date CHF (congestive heart failure) ([facility] Coronary artery disease Heart valve disease There were no vitals filed for this visit. Review of systems: Constitutional: No fever or night sweats Musculoskeletal: left knee pain Neurological: Negative for tingling or numbness Physical Exam: General: No acute distress Constitutional: Grossly well-appearing Mental status: Alert and oriented Respiratory: Non-labored breathing Skin: No erythema, ecchymosis, or abrasions left knee exam: Inspection- Effusion: large Palpation- Patellar tendon: tender Quad tendon: tender Patella: Stable, No crepitus ROM: 5 degrees below full extension, 120 degrees of flexion Meniscal exam- Medial joint line: tender Lateral joint line: not tender Mak: negative Thessaly's: negative Stability- ACL: Taran negative Collateral Ligaments: Stable to varus and valgus stress at 0 and 30 degrees PCL: Posterior drawer negative Strength Quadriceps: 4/5 Vascular: Brisk capillary refill Neuro: Sensation intact to light touch distally Imaging: Where: [facility] Date: 01/13/2023 x-ray left knee(s) : Images personally reviewed and interpreted by me showed Severe tricompartmental degenerative disease of the left knee Assessment: Mabel Moser is a 62 y.o. female who complains of left knee pain that has been troubling her for years. She has a history of tricompartment osteoarthritis of left knee but has thus far been unable to undergo surgical treatment. Her medical history was discussed as well as treatment options. She would like to proceed with left knee TKA. Before doing so, her cardiology, nephrology, and family medicine teams must give medical clearance. Hermila was also consulted on the use of pain control medications (fentynal) and difficulty managing pain post-procedure. Diagnosis Plan 1. Tricompartment osteoarthritis of left knee Ambulatory referral to Orthopaedic Surgery Plan: Discussed clinical and imaging findings with the patient. -Obtain medical clearance from cardiology, nephrology, and family medicine physicians to obtain consent for surgery -Follow-up after obtaining letters of consent to schedule surgery Discussed with the patient the surgical and non surgical options discussed risk and benefits of surgery patient requested to proceed with surgery. Oneal Downey, [address] 02/16/23 As the teaching physician, I have personally performed or re-performed the history of present illness, physical exam and medical decision-making activities of the encounter and verified the medical student's documentation. I made pertinent changes as necessary to ensure accurate documentation. Additional Comments: [facility]07-21-2023 NoteData Mabel Haynes Shanti 1960 Chief Complaint Patient presents with Left Knee - Pain Left Hip - Pain HPI: Mabel is a 62 y.o. female who comes in today for concerns of: Left knee pain and also complaining of Left hip pain. Left knee pain X over 6 years. No specific injuries. Patient reports she gets pain with minimal amount of walking. Pain described as localized to the whole knee but worse on the medial aspect of the knee. 7-8 /10 currently. Worse with walking any distances. Currently taking Percocet and Fentanyl with minimal improvement. Repeat Xrays obtained today in the office. has tried can management in the including physical therapy specifically wasdoing aquatic therapy, at [facility] with mild improvement. patient has had injections in the past, and did have some improvement however feels that getting significant improvement with these. She is interested in considering surgical intervention. Of Note, she did have a R. Total knee arthroplasty about 8 years at [facility]. Patient is also complaining of Left hip pain that worsened about a year ago after she had a fall. She did have x-rays completed after this, and was told that she had a chip off of her bone. . She saw Dr. Barajas at [facility] who recommended continiues conservative management. Hip pain rated as a 4-5/10. Most of her pain on the outer aspect of the hip. No prior injections or focused PT for the hip. Past Medical History: Diagnosis Date CHF (congestive heart failure) ([facility]) Coronary artery disease Heart valve disease History reviewed. No pertinent surgical history. Social History Occupational History Not on file Tobacco Use Smoking status: Never Smokeless tobacco: Never Substance and Sexual Activity Alcohol use: Not Currently Drug use: Not Currently Sexual activity: Not on file Allergies Allergen Reactions Betadine [Povidone-Iodine] Cephalexin Other Ciprofloxacin Gabapentin Iodine Unknown Pregabalin Sulfa (Sulfonamide Antibiotics) Other and GI intolerance Sulfamethoxazole-Trimethoprim Unknown Amoxicillin-Pot Clavulanate Other, Diarrhea, Nausea And Vomiting and GI intolerance Review of Systems: Constitutional: No fever, No chills, No fatigue. Respiratory: No shortness of breath or difficulty breathing. No wheezing. Gastrointestinal: No Vomiting, No Abdominal pain. Musculoskeletal: Left knee pain and Left hip pain Neurologic: Alert and oriented Physical Exam: There were no vitals filed for this visit. Ht 1.575 m (5' 2 ) Wt 81.2 kg (179 lb) BMI 32.74 kg/m??? General: No acute distress Cardiac: Regular rate Respiratory: Non-labored respirations, No audible wheezing Skin: Warm and dry Neurologic: Alert and oriented, no focal deficits Musculoskeletal: LEFT KNEE Inspection: Mild swelling, No erythema, ecchymosis or abrasions. Palpation: Tenderness noted over the MJL and the LJL. ROM: Slightly limited with Lack of full extension and flexion limited to about 100 Strength: Slight weakness noted on the left , related to patients hx of stroke Special tests: No ligamentous laxity appreciated with Lachmann???s test or Anterior/Posterior drawer test Varus/Valgus stress test : Stable Patellar Grind Test: Negative J sign: Negative McMurrays: Negative Musculoskeletal - LEFT HIP Inspection: No ecchymosis , erythema, or abrasions noted. Palpation: Tenderness over the Troch bursa and along the IT Band ROM: slightly limited Slight weakness on Left specifically with hip flexion Special tests: Log Roll test: negative FABERs: Positive for pain on the lateral hip FADIRs: mild pain SI joint loading: Negative Straight Leg Raise: negative Diagnostics/Procedures: Xray Left Knee 01/13/23 No acute osseous abnormality or fracture. Tricompartmental osteophyte formation. Severe joint space narrowing the medial compartment with varus angulation. Joint space narrowing of the patellofemoral compartment. Large fabella present posterior to distal femur. Small joint effusion likely present. IMPRESSION: Severe tricompartmental degenerative disease of the left knee Xray Left Hip 01/13/23 No acute fracture or dislocation. Osteopenia. Arthritis, minimal joint space loss. Multiple osseous densities about the left hip joint, potentially intra-articular or within the adjacent soft tissues, consider CT for better characterization. Lower lumbar spine fusion hardware. IVC filter. Sacroiliac, pubic symphyseal, and partially visualized lower lumbar spine degenerative changes. IMPRESSION: No acute process. Degenerative changes with additional multiple osseous bodies about the left hip joint, consider CT for further characterization. Assessment/ Plan Mabel Moser is a 62 y.o. year old female with Left hip pain Left knee pain, unspecified chronicity - I discussed the diagnosis with the patient in detail including differentia (more content not included)...[facility]06-22-2023 Note [facility] Card[facility] Subjective Mabel Moser is a 62 y.o. 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 Fluid overload Dehydration Cortical age-related cataract of left eye COVID-19 Displacement of lumbar intervertebral disc without myelopathy Edema of lower extremity Edema Orthopnea Dyspnea Endogenous obesity Essential tremor Acute on chronic diastolic heart failure (CMS/HCC) H/O gastric bypass Gouty arthropathy Gastroesophageal reflux disease Full thickness rotator cuff tear Fibromyalgia Low back pain Hip pain Hyperparathyroidism due to renal insufficiency (CMS/HCC) Hypocalcemia Hypertensive disorder Hypoglycemia Hyponatremia Hypothyroidism Impingement syndrome of shoulder region Insomnia Anemia due to vitamin B12 deficiency Pulmonary hypertension (CMS/HCC) Other fatigue Osteoarthritis of knee Morbid (severe) obesity due to excess calories (CMS/HCC) Left atrial enlargement Lumbosacral neuritis Lumbosacral spondylosis without myelopathy Intractable migraine without status migrainosus Migraine Rheumatic tricuspid valve regurgitation Vitamin D deficiency Tympanic membrane perforation, right Transient ischemic attack Thoracic neuritis Tear of right rotator cuff Swallowing problem Sunburn of second degree Status post tympanoplasty Sprain of shoulder Seizure disorder (CMS/HCC) Polyneuropathy associated with critical illness (CMS/HCC) Polyneuropathy Osteoarthritis of spine with radiculopathy, lumbar region Obesity (BMI 30-39.9) Lumbar paraspinal muscle spasm Lateral femoral cutaneous neuropathy, left Internal derangement of right shoulder History of total right knee replacement Hemiparesis, left (CMS/HCC) Hemiparesis due to old stroke (CMS/HCC) Difficulty walking Depression Constipation Abnormal blood chemistry 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 Social History Tobacco Use Smoking status: Never Smokeless tobacco: Never Substance Use Topics Alcohol use: Not Currently Drug use: Not Currently HPI Mabel is seen in follow-up. I had seen her in the past for pulmonary hypertension. She is a 62-year-old woman with prior history of obesity status post bariatric surgery in 2000. In the past she was admitted to [facility] in 2019 with fluid overload and responded to diuresis. Prior evaluation included cardiac catheterization in 2016 that showed mild coronary artery disease with mildly elevated right-sided pressures and wedge pressure. She had normal ventricular function by echocardiography. Pulmonary VQ scan was negative for pulmonary embolism. She has not was seen most recently in our office on 10/28/2022 and she was having headache and recent echocardiogram had shown severely elevated right-sided pressures and her blood work showed acute renal insufficiency. She was sent to the emergency room. Her blood pressure and pain both improved. CT scan of the head was negative. Chest x-ray was negative. She was discharged from the emergency room. After last visit with me on 11/07/2022 I proceeded with right heart catheterization that showed mild elevation of filling pressures and mild pulmonary hypertension. She was recommended to take additional Bumex as needed to maintain stable weight. Since then diuretic therapy had been intensified by Dr. Angle Santana and she is currently taking bumetanide 2 mg 3 times daily, Entresto 97-103 mg twice daily, spironolactone 100 mg daily as needed, metoprolol and hydralazine as needed. review of her blood testing shows LEEANN with creatinine going up to 2.5-2 12/06/2022 and then improving to 1.52 yesterday. Her BUN is significantly elevated. Review of Systems Constitutional: Positive for malaise/fatigue. Respiratory: Positive for shortness of breath. Musculoskeletal: Positive for arthritis and back pain. All other systems reviewed and are negative. Objective Visit Vitals BP 102/68 (BP Location: Right arm, Patient Position: Sitting, BP Cuff Size: Large adult) Pulse 85 Ht 1.6 m (5' 3 ) Wt 80.3 kg (177 lb) SpO2 97% BMI 31.35 kg/m??? Smoking Status Never BSA 1.89 m??? Physical Exam Constitutional: Appearance: She is well-developed. She is obese. She is not ill-appearing. HENT: H (more content not included)...[facility]06-07-2023 NotePt insists right subclavian chest port is accessed for procedure. 4CD RN at bedside to access. RN is not able to access. Li RN CVL spoke with Dr Hidalgo and pt can go to cardiac cath technician without IV access for RHC.[facility]06-07-2023 NotePatient: Mabel Moser Procedure Information Date/Time: 11/30/22 1300 Procedure: Right heart cath Location: [facility] 3 / [facility] (Cath) Providers: Benjie Hidalgo MD Clinical information reviewed: Allergies Meds Physical Exam Airway Mallampati: II Neck ROM: full Cardiovascular Rhythm: regular Rate: normal Dental Pulmonary - normal exam Abdominal - normal exam Bowel sounds: normal Anesthesia Plan ASA 3 other (Conscious sedation) Anesthetic plan and risks discussed with patient. Use of blood products discussed with patient who consented to blood products. Plan discussed with fellow. [facility] - [facility] Subjective Mabel Moser is a 62 y.o. year old female patient being seen for 2 week follow up per Sofie Bernard CNP. She says since she was last seen on 10/28, Dr. Santana increased her Entresto to 97-103mg bid, metoprolol to 50mg TID, and hydralazine to 100mg TID. Says she was in [facility] again last Monday with a BP of 214/127. Patient Active Problem List Diagnosis Abnormal weight loss Acute sinusitis Amnesia Anxiety Other specified anxiety disorders Mitral valve regurgitation Pulmonic valve regurgitation Aortic valve regurgitation Arthritis of right knee Benign essential hypertension Bilateral hearing loss Chronic obstructive pulmonary disease (CMS/HCC) CKD (chronic kidney disease) stage 3, GFR 30-59 ml/min (CMS/HCC) Closed fracture of trochanter of femur (CMS/HCC) Clostridium difficile colitis Coronary arteriosclerosis Diffuse thyroid 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 thyrotoxicosis Fluid overload Dehydration Cortical age-related cataract of left eye COVID-19 Displacement of lumbar intervertebral disc without myelopathy Edema of lower extremity Edema Orthopnea Dyspnea Endogenous obesity Essential tremor Acute on chronic diastolic heart failure (CMS/HCC) H/O gastric bypass Gouty arthropathy Gastroesophageal reflux disease Full thickness rotator cuff tear Fibromyalgia Low back pain Hip pain Hyperparathyroidism due to renal insufficiency (CMS/HCC) Hypocalcemia Hypertensive disorder Hypoglycemia Hyponatremia Hypothyroidism Impingement syndrome of shoulder region Insomnia Anemia due to vitamin B12 deficiency Pulmonary hypertension (CMS/HCC) Other fatigue Osteoarthritis of knee Morbid (severe) obesity due to excess calories (CMS/HCC) Left atrial enlargement Lumbosacral neuritis Lumbosacral spondylosis without myelopathy Intractable migraine without status migrainosus Migraine Rheumatic tricuspid valve regurgitation No family history on file. Social History Tobacco Use Smoking status: Never Smokeless tobacco: Never Substance Use Topics Alcohol use: Not Currently Drug use: Not Currently HPI Mabel is seen in follow-up. I had seen her in the past for pulmonary hypertension. She is a 62-year-old woman with prior history of obesity status post bariatric surgery in 2000. In the past she was admitted to [facility] in 2019 with fluid overload and responded to diuresis. Prior evaluation included cardiac catheterization in 2016 that showed mild coronary artery disease with mildly elevated right-sided pressures and wedge pressure. She had normal ventricular function by echocardiography. Pulmonary VQ scan was negative for pulmonary embolism. She has not was seen most recently in our office on 10/28/2022 and she was having headache and recent echocardiogram had shown severely elevated right-sided pressures and her blood work showed acute renal insufficiency. She was sent to the emergency room. Her blood pressure and pain both improved. CT scan of the head was negative. Chest x-ray was negative. She was discharged from the emergency room. She is currently taking bumetanide 1 mg 3 times daily, spironolactone 100 mg daily, Entresto 97-103 mg twice daily, metoprolol tartrate 50 mg 3 times daily and hydralazine 100 mg 3 times daily She reports that she has gained weight recently. In addition she has shortness of breath on exertion, NYHA class II-III and bilateral lower extremity swelling. She is taking diuretics as prescribed. Review of Systems Constitutional: Positive for malaise/fatigue and weight gain (10# since 10/10/22). Cardiovascular: Positive for dyspnea on exertion, leg swelling and palpitations. Musculoskeletal: Positive for arthritis, back pain and joint pain. Neurological: Positive for headaches and light-headedness. All other systems reviewed and are negative. Objective Visit Vitals BP 135/67 (BP Location: Right arm, Patient Position: Sitting) Pulse 66 Ht 1.575 m (5' 2 ) Wt 82.6 kg (182 lb) SpO2 99% BMI 33.29 kg/m??? Smoking Status Never BSA 1.9 m??? Physical Exam Constitutional: Appearance: She is well-developed. She is obese. She is not ill-appearing. HENT: Head: Normocephalic and atraumatic. Nose: Nose normal. Eyes: General: No scleral icterus. Pupils: Pupils are equal, round, and reactive to light. Neck: Thyroid: No thyromegaly. Vascular: No JVD. Cardiovascular: Rate and Rhythm: Normal rate and regular rhythm. Pulses: Radial pulses are 2+ on the right side and 2+ on the left side. Heart sounds: Murmur heard. Systolic (LLSB) murmur is present with a grade of 2/6. No friction rub. No gallop. Pulmonary: Effort: Pulmonary effort is normal. No respiratory distress. Breath sounds: Normal breath sounds. No wheezing or rales. Chest: Chest wall: No tenderness. Abdominal: General: Bowel sounds are normal. There is no distension. Pal (more content not included)...[facility]05-05-2023 NoteHeadaches today and to be evaluated in ED- worst H/A I have ever had. [facility]05-05-2023 NoteCoronary artery disease is stable Continue GDMTUnChillicothe [facility]05-05-2023 NoteHypertension is uncontrolled with c/o worst headache ever- recommended [facility] to be [facility]Un[facility] NoteContinue to monitor with echoUnChillicothe Hospital05-05-2023 NoteNYHC- IV- SOB with rest and + Orthopnea, volume overloaded on exam despite Bumex 1 mg po tid and increased renal function. Noted elevated rt sided pressures with RVSP 59 and dilated RV on Echo 09/21/22- She has h/o PE in the past and currently on ASA. CR was increasing on labs noted 10/26/22- CR 1.68/BUN 45 at admit was 1.23/ 38 [facility]05-05-2023 NotePatient here for follow up [facility] [facility] ED on 10/24/2022 for fluid overload. She is up 10# from last visit on 10/10. C/o worsening SOB with exertion. Says she's on antibiotic and steroid for left-sided facial tingling and swelling. Review of Systems Constitutional: Positive for malaise/fatigue and weight gain (10# since 10/10/22). Cardiovascular: Positive for dyspnea on exertion, leg swelling and palpitations. Musculoskeletal: Positive for arthritis, back pain and joint pain. Neurological: Positive for light-headedness. All other systems reviewed and are negative.[facility] 10-28-2022 NoteUTP CARDIOLOGY PROGRESS NOTE HPI: Mabel Moser is a 62 y.o. female here for hospital f/u Patient here for follow up [facility] ED on 10/24/2022 for fluid overload. She is up 10# from last visit on 10/10. C/o worsening SOB with exertion. Says she's on antibiotic and steroid for left-sided facial tingling and swelling. States she has gained weight since leaving the hospital 2 days ago, increased leg swelling, shortness of breath and orthopnea. Admits worst headache I have ever had today. Review of Systems Constitutional: Positive for malaise/fatigue and weight gain (10# since 10/10/22). Cardiovascular: Positive for dyspnea on exertion, leg swelling and palpitations. Musculoskeletal: Positive for arthritis, back pain and joint pain. Neurological: Positive for light-headedness. All other systems reviewed and are negative. Visit Vitals BP 163/88 (BP Location: Right wrist, Patient Position: Sitting) Pulse 65 Ht 1.575 m (5' 2 ) Wt 83 kg (183 lb) SpO2 99% BMI 33.47 kg/m??? Smoking Status Never BSA 1.91 m??? Allergies Allergen Reactions Betadine [Povidone-Iodine] Cephalexin Other Ciprofloxacin Gabapentin Pregabalin Sulfa (Sulfonamide Antibiotics) Other and GI intolerance Amoxicillin-Pot Clavulanate Other, Diarrhea, Nausea And Vomiting and GI intolerance Medications: Current Outpatient Medications on File Prior to Visit Medication Sig Dispense Refill albuterol 90 mcg/actuation inhaler every 6 (six) hours. ALPRAZolam (Xanax) 0.5 mg tablet alprazolam 0.5 mg tablet amitriptyline (Elavil) 150 mg tablet amitriptyline 150 mg tablet ARIPiprazole (Abilify) 2 mg tablet 5 mg in the morning. bumetanide (Bumex) 1 mg tablet in the morning, afternoon, and at bedtime. hgtvmnxcpx-grgirowxggmss-bmdw (Esgic) 50-325-40 mg capsule oddodmyfpa-ejqfycjttgcqw-fsgjzgti 50 mg-325 mg-40 mg capsule butorphanol (Stadol) 10 mg/mL nasal spray calcium acetate (Phoslo) 667 mg capsule desvenlafaxine (Pristiq) 50 mg 24 hr tablet dicyclomine (Bentyl) 20 mg tablet dicyclomine 20 mg tablet DULoxetine (Cymbalta) [address] capsule 120 mg. Entresto 49-51 mg tablet 1 tablet in the morning and at bedtime. escitalopram (Lexapro) 20 mg tablet escitalopram 20 mg tablet fentaNYL (Duragesic) 100 mcg/hr hydrALAZINE (Apresoline) 50 mg tablet in the morning, at noon, and at bedtime. ipratropium-albuteroL (Duo-Neb) 0.5-2.5 mg/3 mL nebulizer solution ipratropium 0.5 mg-albuterol 3 mg (2.5 mg base)/3 mL nebulization soln levothyroxine (Synthroid, Levoxyl) 100 mcg tablet levothyroxine 100 mcg tablet linaCLOtide (Linzess) 290 mcg capsule Linzess 290 mcg capsule liothyronine (Cytomel) 25 mcg tablet liothyronine 25 mcg tablet metoprolol tartrate (Lopressor) 50 mg tablet Take 50 mg by mouth in the morning and 50 mg in the evening. spironolactone (Aldactone) 100 mg tablet spironolactone 100 mg tablet No current facility-administered medications on file prior to visit. Physical Exam: Constitutional: Appearance: Ill appearing, chronically ill HENT: Head: Normocephalic and atraumatic. Nose: Nose normal. Mouth/Throat: Mouth: Mucous membranes are moist. Eyes: Extraocular Movements: Extraocular movements intact. Conjunctiva/sclera: Conjunctivae normal. Neck: Vascular: + JVD. Cardiovascular: Rate and Rhythm: Normal rate and regular rhythm. Pulses: Dorsalis pedis pulses are 3 on the right side and 3on the left side. Posterior tibial pulses are 3 on the right side and 3 on the left side. Heart sounds: Normal heart sounds, S1 normal and S2 normal. Pulmonary: Effort: Pulmonary effort is normal. Breath sounds: diminished b/l bases posterior. Abdominal: General: Bowel sounds are normal. Palpations: Abdomen is soft. Musculoskeletal: General: Normal range of motion. Cervical back: Normal range of motion. Right lower le+ pitting edema with a lymphedema component. Left lower le+ pitting edema with a lymphedema component. Skin: General: Skin is warm and dry. Capillary Refill: Capillary refill takes less than 2 seconds. Neurological: General: No focal deficit present. Mental Status: She is alert and oriented to person, place, and time. Psychiatric: Mood and Affect: Mood normal. Behavior: Behavior normal. Thought Content: Thought content normal. Judgment: Judgment normal. Labs: 10/26/22 Last lab values have been reviewed CV Testin09/21/22 Echo 10/24/22 CXR Assessment/Plan: Acute on chronic diastolic heart failure (CMS/HCC) [facility]- IV- SOB with rest and + Orthopnea, volume overloaded on exam despite Bumex 1 mg po tid and increased renal function. Noted elevated rt sided pressures with RVSP 59 and dilated RV on Echo 09/21/22- She has h/o PE in the past and currently on ASA. CR was increasing on labs noted 10/26/22- CR 1.68/BUN 45 at admit was 1.23/ 38 Aortic valve regurgitation Continue to monitor with echo Benign essential hypertension Hypertension is uncontrolle (more content not included)...[facility]04-17-2023 NoteCardiovascular Medicine [facility] SUBJECTIVE Chief Complaint Patient presents with Congestive Heart Failure Re-establish care HPI Mabel Moser is a 62 y.o. female here to re-establish care. She was recently discharged from [facility] for fluid overload. Her weight went up from 150-155lb to 184lbs, she was having increase in leg swelling and increase in SOB along with fatigue. She was diuresed down to 173lbs and her bumex was increased from 1mg BID to 1mg TID. She has issues with high BP. 184/108 at home today. She has been taking hydralazine PRN for elevated BPs. She tends to have fluctuating BPs. She has intermittent palpitations. She c/o ongoing fatigue, she feels like her hemoglobin level is low. She follows with a kidney specialist at [facility]. Her leg swelling has improved but she still has some. She continues to have some orthopnea and a dry cough. Denies CP, syncope. Diet: low Na+, less than 2L fluid/day Exercise: none currently Tobacco: denies ETOH: denies Recreational drug use: denies Last HPI per Dr. Hidalgo (12/2018): Visit of 08/27/2018: She was previously investigated for pulmonary hypertension, dyspnea and edema. She has mild pulmonary hypertension by cath in 02/2016. She has history of obesity s/p bariatric surgery in 1999. She has been admitted in 07/2018 to [facility] with dyspnea, fluid overload and was diuresed. Before that she was admitted 2 weeks before for fluid overload. She has on and off chest pain. She is not very mobile and uses a walker to ambulate. She has significant shortness of breath that has been worsening lately. She has lower extremity edema. She is on spironolactone 50 mg bid and bumex 4mg bid. She takes KCL supplementation. Echocardiogram 08/20/2018: Normal LV systolic function. Left atrial enlargement. Moderate diastolic dysfunction. Moderate to severe tricuspid regurgitation. Severely elevated right sided pressures, RVSP 74 mmHg. Mild mitral, aortic, and pulmonary regurgitation. Echocardiogram 05/14/2018: RVSP 48 mmHg. Cardiac cath 03/23/2016:1. Mild coronary artery disease. 2. Normal global left ventricular systolic function on noninvasive imaging. 3. Mildly elevated right-sided heart pressures and wedge pressure. PA: 36/18 (26). 4. Normal cardiac output/cardiac index. CTA chest 08/19/2018: no central pulmonary embolism Update 12/25/2018: She is seen in follow-up. After last visit I proceeded with investigation to include right heart catheterization, transesophageal echocardiogram and pulmonary VQ scan. The investigation was not revealing. She has been feeling ok. She has no chest pain. She has the same dyspnea, related to COPD. Occasional palpitations. Transesophageal echocardiogram 10/12/2018: Left ventricle systolic function is normal. Left atrium: There is no evidence of thrombus in the atrial cavity or appendage. Right ventricle systolic function is normal. Atrial septum: No defect or patent foramen ovale is identified. There is no precordial effusion. No valvular dysfunction. Pulmonary VQ scan 08/31/2018: 1. No ventilation perfusion mismatch. Low probability of pulmonary embolism. CT chest without contrast 09/01/2018: No acute cardiopulmonary pathology. Heart catheterization: Normal filling pressures. Normal pulmonary pressures. Normal cardiac output and cardiac index. Allergies Allergen Reactions Betadine [Povidone-Iodine] Cephalexin Other Ciprofloxacin Gabapentin Pregabalin Sulfa (Sulfonamide Antibiotics) Other and GI intolerance Amoxicillin-Pot Clavulanate Other, Diarrhea, Nausea And Vomiting and GI intolerance Patient Active Problem List Diagnosis Abnormal weight loss Acute sinusitis Amnesia Anxiety Other specified anxiety disorders Mitral valve regurgitation Pulmonic valve regurgitation Aortic valve regurgitation Arthritis of right knee Benign essential hypertension Bilateral hearing loss Chronic obstructive pulmonary disease (CMS/HCC) CKD (chronic kidney disease) stage 3, GFR 30-59 ml/min ([facility]/HCC) Closed fracture of trochanter of femur ([facility]/HCC) Clostridium difficile colitis Coronary arteriosclerosis Diffuse thyroid 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 thyrotoxicosis Fluid overload Dehydration Cortical age-related cataract of left eye COVID-19 Displacement of lumbar intervertebral disc without myelopathy Edema of lower extremity Edema Orthopnea Dyspnea Endogenous obesity Essential tremor Heart failure (CMS/HCC) H/O gastric bypass Gouty arthropathy Gastroesophageal reflux disease Full thickness rotator cuff tear Fibromyalgia Low back pain Hip pain Hyperparathyroidism due to renal insufficiency (CMS/HCC) Hypocalcemia Hypertensive disorder Hypoglycemia Hyponatremia Hypothyroidism Impingement syndrome of shoulder region Insomnia Anemia due to vitamin B12 deficiency Pulmona (more content not included)...[facility] 10-10-2022 NoteNew patient here to re-establish care. She was last seen in [address] Hidalgo. She was discharged 10/07/2022 from [facility] for fluid overload. Had echo 09/21/2022. Says PCP put her on Entresto a few months ago, and recently decreased her dose due to hyperkalemia per patient. Review of Systems Constitutional: Positive for malaise/fatigue. Cardiovascular: Positive for dyspnea on exertion, leg swelling and palpitations. Musculoskeletal: Positive for arthritis, back pain and joint pain. Neurological: Positive for light-headedness. All other systems reviewed and are negative.[facility] 09-27-2022 Evaluation note* Encounter Date Diagnosis Assessment Notes Treatment Notes Treatment Clinical Notes Sep, Chronic kidney disea se, stage 3a (ICD-10 - N18.31) She has chronic kidney disease stage 3with variable serum creatinine related to diuretics Serum creatinine fluctuate between 1.2 to 1.8 mg deciliter. UA is benign. No proteinuria. Patient currently on Entresto but now at lower dose due to recent hyperkalemia I asked the patient to avoid NSAIDs completely. Blood pressure target is below 130/80. BP is close to target. Patient needs to stop florenif. I asked the patient to discuss this with Dr. Choudhury. Volume status well controlled. On Bumex and hydrochlorothiazide Follow-up with the patient in 4 months Sep, Hypertensive chronic kidney disease with stage 1 through stage 4 chronic kidney disease, or unspecified chronic kidney disease (ICD-10 - I12.9) Blood pressure target below 130/80. Uncontrolled blood pressure likely from intractable migraine. Fludrocortisone likely contributing to this elevated blood pressure. Patient is going to discuss with Dr. Santana bout fludrocortisone I would continue same blood pressure medications. Advised the patient to follow a low-salt diet and to monitor her blood pressure at home Sep, Hyperkalemia (ICD-10 - E87.5) from KCl supplement. resolved with medical treatment. Ok to continue ARB. continue same diuretic Sep, Hyponatremia (ICD-10 - E87.1) Sodium level has been slightly low ranges between 130-135 mmol/L. Likely from hydrochlorothiazide. We will continue to monitor sodium level. Might have to stop hydrochlorothiazide or decrease the dose if sodium level falls below 130 mmol/L. Sep, CHF (congestive hear t failure) (ICD-10 - I50.9) CHF is clinically compensated on diuretics. Continue low-salt diet. Continue same dose of Bumex Sep, Anemia in chronic kidney disease (ICD-10 - D63.1) Hemoglobin is stable between 9 and 10 g/dL on vitamin B12 injections. She follow-up with Dr. Liu. Sep, Secondary hyperparathyroidism of renal origin (ICD-10 - N25.81) PTH is within normal limit .25-hydroxy vitamin D is 75 Sep, Vitamin D deficiency (ICD-10 - E55.9) Patient is taking vitamin D supplement. 25-hydroxy vitamin D is within normal limit Sep, Migraine aura, persistent, intractable (ICD-10 - G43.519) Advised the patient to follow with [facility] neurology clinic [employer] [facility] Other 03-28-2023 NoteThe [facility] [id number] Evaluation note* Encounter Date Diagnosis Assessment Notes Treatment Notes Treatment Clinical Notes Jul, Contusion of right wrist, initial encounter (ICD-10 - S60.211A) Patient placed in cock up wrist splint. Activities 2-5 lbs ADLs [facility] Other 12-13-2022 NoteThe [facility] [id number] NoteThe [facility] [id number] NoteThe [facility] CenterOplhnzma84-39-1706 Evaluation note * Encounter Date Diagnosis Assessment Notes Treatment Notes Treatment Clinical Notes Mar, Chronic kidney disea se, stage 3a (ICD-10 - N18.31) She has mild chronic kidney disease with variable serum creatinine related to diuretics Serum creatinine fluctuate between 1.2 to 1.8 mg deciliter. UA is benign. No proteinuria. Patient currently on Entresto I asked the patient to avoid NSAIDs completely. Blood pressure target is below 130/80. Patient needs better control of migraine to control blood pressure Volume status well controlled. On Bumex and hydrochlorothiazide Follow-up with the patient in 6 months Mar, Hyperkalemia (ICD-10 - E87.5) This has resolved. On Bumex and hydrochlorothiazide. Patient currently on potassium supplement. Mar, Hyponatremia (ICD-10 - E87.1) Sodium level has been slightly low ranges between 130-135 mmol/L. Likely from hydrochlorothiazide. We will continue to monitor sodium level. Might have to stop hydrochlorothiazide or decrease the dose if sodium level falls below 130 mmol/L. Mar, CHF (congestive hear t failure) (ICD-10 - I50.9) CHF is clinically compensated on diuretics. Continue low-salt diet. Continue same dose of Bumex Mar, Anemia in chronic kidney disease (ICD-10 - D63.1) Hemoglobin is stable between 9 and 10 g/dL on vitamin B12 injections. She follow-up with Dr. Liu. Mar, Secondary hyperparathyroidism of renal origin (ICD-10 - N25.81) PTH is within normal limit .25-hydroxy vitamin D is 74 Mar, Vitamin D deficiency (ICD-10 - E55.9) Patient is taking vitamin D supplement. 25-hydroxy vitamin D is within normal limit Mar, Hypertensive chronic kidney disease with stage 1 through stage 4 chronic kidney disease, or unspecified chronic kidney disease (ICD-10 - I12.9) Blood pressure target below 130/80. Uncontrolled blood pressure likely from intractable migraine. Fludrocortisone likely contributing to this elevated blood pressure. Advised the patient to follow-up with [facility] neurology clinic I will try to reach to Dr. Santana's office about fludrocortisone I would continue same blood pressure medications. Advised the patient to follow a low-salt diet and to monitor her blood pressure at home Mar, Migraine aura, persistent, intractable (ICD-10 - G43.519) Advised the patient to follow with [facility] neurology clinic [facility] Other 08-04-2022 NoteThe [facility] [id number] NoteChildren[facility]12-[facility]-20[facility] Evaluation note* Encounter Date Diagnosis Assessment Notes Treatment Notes Treatment Clinical Notes May, Chronic kidney disea se, stage 3a (ICD-10 - N18.31) She has mild chronic kidney disease with variable serum creatinine related to diuretics and chronic congestive heart failure. Serum creatinine is variable between 1-1.5 mg/dL according to volume status and blood pressure. Monitor renal function every 4 to 6 months or as needed. Patient has multiple electrolyte abnormalities related to diuretics. She gets blood work as outpatient almost weekly that is being reviewed and medications being adjusted by Dr. Angle Santana May, Hyperkalemia (ICD-10 - E87.5) Potassium is up to 5.4 mEq/L. She was advised to decrease potassium supplement back to 1 a day. She still on low-dose bumetanide 1 mg p.o. daily for recurrent CHF. She is back on thiazide diuretics. She developed Hypernatremia with metolazone however it could be related to the volume overload. Monitor serum sodium and consider discontinuation of hydrochlorothiazide if she developed hyponatremia below 130. May, Hyponatremia (ICD-10 - E87.1) She had episodes of hyponatremia as low as 116 mmol/L when she was on metolazone and while she was sick with C. difficile colitis. Patient also has episodes of hypervolemic hyponatremia while she has CHF. Sodium is reasonable at 132 mmol/L on bumetanide. May, CHF (congestive hear t failure) (ICD-10 - I50.9) CHF is clinically compensated on diuretics. Continue low-salt diet. She still has low potassium on potassium supplement. Patient developed significant hypotension with CHF medications. Sacubitril/valsartan was stopped. She takes fludrocortisone 0.2 mg daily to support blood pressure and avoid orthostatic hypotension. May, Anemia in chronic kidney disease (ICD-10 - D63.1) Hemoglobin is stable between 9 and 10 g/dL on Procrit. She follow-up with Dr. Liu. May, Secondary hyperparathyroidism of renal origin (ICD-10 - N25.81) No new intact PTH or phosphorus were done. Patient had hypocalcemia with intact PTH elevated up to 300 few months ago. She is currently on cholecalciferol 125 mcg daily. We will recheck calcium, phosphorus, intact PTH and 25-hydroxy vitamin D with next blood work. Continue calcium carbonate and calcium acetate 667 mg twice a day with meals. May, Vitamin D deficiency (ICD-10 - E55.9) Check 25-hydroxy vitamin D with next blood work May, Hypertensive chronic kidney disease with stage 1 through stage 4 chronic kidney disease, or unspecified chronic kidney disease (ICD-10 - I12.9) Blood pressure is reasonably controlled and low-salt diet. She is off all diuretics metolazone, spironolactone and bumetanide. [facility] Other Evaluation noteNo assessment information available [facility] Work Phone: Evaluation noteNo [employer] Other History general Narrative - Reported* Type Description Date Medical History dyspnea Medical History edema Medical History spinal stenosis Medical History back pain Medical History Gout Medical History syncope Medical History hypertension Medical History anemia, iron deficient Medical History kidney failure Medical History pneumonia Medical History 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 Medical History low sodium Medical History BOWEL OBSTRUCTION Medical History HYPOKALEMIA Medical History HYPONATREMIA Medical History COVID X 2 05/2020- 04/2021 Medical History C- DIFF 03/2021 Medical History STAPH 04/2021 Surgical History rotator cuff tear repair Surgical History hysterectomy Surgical History appendectomy Surgical History gastric bypass Surgical History knee surgery Surgical History back surgery Surgical History Right total knee replacement 2017 Surgical History HEART CATH Hospitalization History See above Hospitalization History FLUID RETENTION Hospitalization History DEHYDRATION Hospitalization History LOW SODIUM 09/11 Hospitalization History ABNORMAL LABS, BOWEL OBS TRUCTION 03/2021 Hospitalization History COVID 05/2020 Hospitalization History COVID 04/2021 [facility] Other Hisvnyr general Narrative - Reported* Type Description Date Medical History dyspnea Medical History edema Medical History spinal stenosis Medical History back pain Medical History Gout Medical History syncope Medical History hypertension Medical History anemia, iron deficient Medical History kidney failure Medical History pneumonia Medical History 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 Medical History low sodium Medical History BOWEL OBSTRUCTION Medical History HYPOKALEMIA Medical History HYPONATREMIA Medical History COVID X 2 05/2020- 04/2021 Medical History C- DIFF 03/2021 Medical History STAPH 04/2021 Surgical History rotator cuff tear repair Surgical History hysterectomy Surgical History appendectomy Surgical History gastric bypass Surgical History knee surgery Surgical History back surgery Surgical History Right total knee replacement 2017 Surgical History HEART CATH Surgical History ROTATOR CUFF REPAIR 2021 Hospitalization History See above Hospitalization History FLUID RETENTION Hospitalization History DEHYDRATION Hospitalization History LOW SODIUM 09/11 Hospitalization History ABNORMAL LABS, BOWEL OBS TRUCTION 03/2021 Hospitalization History COVID 05/2020 Hospitalization History COVID 04/2021 [facility] Other History general Narrative - Reported* Type Description Date Medical History dyspnea Medical History edema Medical History spinal stenosis Medical History back pain Medical History Gout Medical History syncope Medical History hypertension Medical History anemia, iron deficient Medical History kidney failure Medical History pneumonia Medical History 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 Medical History low sodium Medical History BOWEL OBSTRUCTION Medical History HYPOKALEMIA Medical History HYPONATREMIA Medical History COVID X 2 05/2020- 04/2021 Medical History C- DIFF 03/2021 Medical History STAPH 04/2021 Medical History ELEVATED POTASSIUM 09/19/2022 Surgical History rotator cuff tear repair Surgical History hysterectomy Surgical History appendectomy Surgical History gastric bypass Surgical History knee surgery Surgical History back surgery Surgical History Right total knee replacement 2017 Surgical History HEART CATH Surgical History ROTATOR CUFF REPAIR 2021 Hospitalization History See above Hospitalization History FLUID RETENTION Hospitalization History DEHYDRATION Hospitalization History LOW SODIUM 09/11 Hospitalization History ABNORMAL LABS, BOWEL OBS TRUCTION 03/2021 Hospitalization History COVID 05/2020 Hospitalization History COVID 04/2021 Hospitalization History ELEVATED POTASSIUM LEVEL 09/19/2022 [facility] Other Summary Purpose Family History No Family History Records FoundNo Family History Records FoundNo Family History Records FoundNo Family History Records FoundNo Family History Records FoundNo Family History Records FoundNo Family History Records Found Advance Directives Advance Directive Response Recorded Date/ Time Advance Directives No February 3:20pm Chief Complaint and Reason for Visit Chief Complaint sent by brandi chung Additional Source Comments INFORMATION SOURCE (unrecogn ized section and content) DATE CREATED AUTHOR 01/14/2019 [facility] DATE CREATED AUTHOR AUTHOR'S ORGANIZ ATION 07/24/2021 [facility] DATE CREATED AUTHOR AUTHOR'S ORGANIZ ATION 01/17/2022 [facility] DATE CREATED AUTHOR AUTHOR'S ORGANIZ ATION 11/07/2022 [facility] DATE CREATED AUTHOR AUTHOR'S ORGANIZ ATION 12/05/2022 [facility] DATE CREATED AUTHOR AUTHOR'S ORGANIZ ATION 02/10/2023 Finnegan Talbot [facility] DATE CREATED AUTHOR AUTHOR'S ORGANIZ ATION 2023 [facility] REASON FOR VISIT (unrecogniz ed section and content) RENAL 6 month f/u for CKD st age [age] with recurrent LEEANN on diureticsRENAL 4 month Follow up, NO LABSRight Wrist InjuryRENAL 6 month Follow upClinicalClinicalTELEVISIT VS OVRENAL F/U Care Teams (unrecognized sec tion and content) Team Status: Active Member Role Status Dates Angle Santana MD Primary Care Provider Active Team Status: Inactive Member Role Status Dates Angle Santana MD Primary Care Provider Active Favian Helm PA-C Emergency Provider Active Goals (unrecognized section and content) Goals may be documented in a n alternate section FOR RECORDS PERTAINING TO PATIENTS WHO ARE OR HAVE BEEN ENROLLED IN A CHEMICAL DEPENDENCY/SUBSTANCEABUSE PROGRAM, SOME INFORMATION MAY BE OMITTED. This clinical summary was aggregated from multiple sources. Caution should be exercised in using it in the provision of clinical care. This summary normalizes information from multiple sources, and as a consequence, information in this document may materially change the coding, format and clinical context of patient data. In addition, data may be omitted in some cases. CLINICAL DECISIONS SHOULD BE BASED ON THE PRIMARY CLINICAL RECORDS. [facility]. provides no warranty or guarantee of the accuracy or completeness of information in this document.
== END 2023-06-15 09:19 | disposition home or self-care (01) ==
LOC: SURGOUT 08:05
PROVIDERS: PCP Family Medicine; Visit Provider Anesthesiology Pain Medicine
DX: M47.812 Spondylosis without myelopathy or radiculopathy, cervical region (principal); I10 Essential (primary) hypertension; E87.1 Hypo-osmolality and hyponatremia
CPT/HCPCS: 36591; 64490; 64491; 80053; 83930; 85025; J1642

== ENCOUNTER 2023-06-22 07:29 | Outpatient (RCR) | payer MEDICARE, MEDICAID, SELFPAY ==
[2023-06-01 13:38] VITALS: BP 119/78; PULSE 92; RESP 18; TEMP 36.6; O2SAT 95
--- NOTE | 2023-06-01 13:40 | PC.NURSE ---
Visit to [facility] for blood draw and port care. Rt chest port accessed using #19 ga james needle under sterile technique, unable to get blood return initailly, after flushing with 10 ml of NSS, able to obtain excellent blood return, labs drawn sent to lab. Heparinized, deaccessed. released ambulatory.
[2023-06-01 13:50] LABS: Basophils Percent Auto 0.3 % (0.2-2.0); Eosinophils Absolute Auto 0.2 10^3/uL (0.0-0.7); Eosinophils Percent Auto 2.6 % (0.9-7.0); Hematocrit 30.6 % (36.0-48.0); Hemoglobin 9.6 g/dL (12.0-16.0); Immature Granulocytes Abs Auto 0.04 10^3/uL (0.00-0.03); Immature Granulocytes Pct Auto 0.6 % (0.0-0.5); Lymphocytes Absolute Auto 1.2 10^3/uL (1.2-3.8); Lymphocytes Percent Auto 18.1 % (20.5-60.0); Mean Corpuscular HGB Conc 31.4 g/dL (29.9-35.2); Mean Corpuscular Hemoglobin 31.6 pg (26.7-34.0); Mean Corpuscular Volume 100.7 fL (81.0-99.0); Mean Platelet Volume 9.1 fL (9.5-13.5); Monocytes Absolute Auto 0.5 10^3/uL (0.3-0.8); Neutrophils Absolute Auto 4.6 10^3/uL (1.4-6.5); Neutrophils Percent Auto 70.4 % (43.0-75.0); Platelet Count 240 10^3/uL (150-450); Red Blood Count 3.04 10^6/uL (4.20-5.40); Red Cell Distribution Width 13.7 % (11.0-15.0); White Blood Count 6.5 10^3/uL (4.0-11.0)
[2023-06-01 14:14] LABS: Alanine Aminotransferase 17 U/L (14-59); Albumin Level 3.4 g/dL (3.4-5.0); Alkaline Phosphatase 135 U/L (46-116); Anion Gap 13.7; Aspartate Amino Transferase 37 U/L (15-37); BUN Creatinine Ratio 37.4; Bilirubin Total 0.3 mg/dL (0.2-1.0); Calcium 8.6 mg/dL (8.5-10.1); Carbon Dioxide 25.4 mmol/L (21.0-32.0); Chloride 100 mmol/L (98-107); Estimated GFR (African America 31 (>=60); Estimated GFR (Non-African Ame 26 (>=60); Globulin 3.4 g/dL; Glucose 86 mg/dL (74-106); Potassium 5.1 mmol/L (3.5-5.1); Sodium 134 mmol/L (136-145); Total Protein 6.8 g/dL (6.4-8.2)
[2023-06-08 10:28] VITALS: BP 118/74; PULSE 77; RESP 20; TEMP 37.2; O2SAT 99
[2023-06-08] MEDS: HEPARIN SODIUM (PORCINE) PF LOCK FLUSH 500 UNIT/5 ML SYRINGE 250 UNIT IV (10:30)
--- NOTE | 2023-06-08 10:30 | PC.NURSE ---
1015 Arrival abulatory for port care/lab draw. Rt chest port accessed utilizing sterile technique with a 19 ga james needle, excellent blood return noted. 10 ml waste, labs drawn port flushed with 30 ml ns, followed byhep lockflush. deaccessed, cotton ball and bandaid applied. patient tolerated well. Lab in for nasal swab. Released ambulatory
[2023-06-08 10:31] LABS: Basophils Percent Auto 0.3 % (0.2-2.0); Eosinophils Absolute Auto 0.2 10^3/uL (0.0-0.7); Eosinophils Percent Auto 3.4 % (0.9-7.0); Hematocrit 32.5 % (36.0-48.0); Hemoglobin 9.9 g/dL (12.0-16.0); Immature Granulocytes Abs Auto 0.06 10^3/uL (0.00-0.03); Lymphocytes Absolute Auto 1.2 10^3/uL (1.2-3.8); Mean Corpuscular HGB Conc 30.5 g/dL (29.9-35.2); Mean Corpuscular Volume 101.9 fL (81.0-99.0); Mean Platelet Volume 8.7 fL (9.5-13.5); Monocytes Absolute Auto 0.4 10^3/uL (0.3-0.8); Monocytes Percent Auto 7.5 % (1.7-12.0); Neutrophils Percent Auto 67.8 % (43.0-75.0); Platelet Count 253 10^3/uL (150-450); Red Blood Count 3.19 10^6/uL (4.20-5.40); Red Cell Distribution Width 13.6 % (11.0-15.0); White Blood Count 5.9 10^3/uL (4.0-11.0)
[2023-06-08 10:56] LABS: Influenza Virus A Antigen Negative; Influenza Virus B Antigen Negative; Internal Control Within Normal Limits; Respiratory Syncytial Virus Not Detected (NOT DETECTE); SARS-CoV-2 Ag NEGATIVE (NEGATIVE)
[2023-06-08 11:09] LABS: Alanine Aminotransferase 29 U/L (14-59); Albumin Globulin Ratio 0.9; Albumin Level 3.4 g/dL (3.4-5.0); Alkaline Phosphatase 153 U/L (46-116); Anion Gap 14.4; Aspartate Amino Transferase 26 U/L (15-37); BUN Creatinine Ratio 34.6; Bilirubin Total 0.3 mg/dL (0.2-1.0); Calcium 8.8 mg/dL (8.5-10.1); Carbon Dioxide 24.6 mmol/L (21.0-32.0); Chloride 99 mmol/L (98-107); Estimated GFR (African America 26 (>=60); Estimated GFR (Non-African Ame 21 (>=60); Globulin 3.7 g/dL; Glucose 80 mg/dL (74-106); Sodium 133 mmol/L (136-145); Total Protein 7.1 g/dL (6.4-8.2)
[2023-06-08 16:11] LABS: SARS-CoV-2 NAA NOT DETECTED (NOT DETECTE)
[2023-06-15] MEDS: HEPARIN SODIUM (PORCINE) PF LOCK FLUSH 500 UNIT/5 ML SYRINGE 250 UNIT IV (13:09)
--- NOTE | 2023-06-15 13:18 | PC.NURSE ---
Pt is here for port draw. Port accessed in her right chest with blood return, flushed easily. She tolerated this well. Pt was discharged home via ambulatory.
[2023-06-15 13:22] LABS: Basophils Percent Auto 0.3 % (0.2-2.0); Eosinophils Absolute Auto 0.1 10^3/uL (0.0-0.7); Eosinophils Percent Auto 1.2 % (0.9-7.0); Hemoglobin 9.4 g/dL (12.0-16.0); Immature Granulocytes Abs Auto 0.06 10^3/uL (0.00-0.03); Immature Granulocytes Pct Auto 0.6 % (0.0-0.5); Lymphocytes Percent Auto 10.1 % (20.5-60.0); Mean Corpuscular HGB Conc 30.3 g/dL (29.9-35.2); Mean Corpuscular Hemoglobin 31.2 pg (26.7-34.0); Mean Platelet Volume 9.2 fL (9.5-13.5); Monocytes Absolute Auto 0.6 10^3/uL (0.3-0.8); Monocytes Percent Auto 6.1 % (1.7-12.0); Neutrophils Percent Auto 81.7 % (43.0-75.0); Platelet Count 257 10^3/uL (150-450); Red Blood Count 3.01 10^6/uL (4.20-5.40); Red Cell Distribution Width 13.4 % (11.0-15.0); White Blood Count 9.8 10^3/uL (4.0-11.0)
[2023-06-15 13:53] LABS: Alanine Aminotransferase 31 U/L (14-59); Albumin Globulin Ratio 0.9; Albumin Level 3.3 g/dL (3.4-5.0); Alkaline Phosphatase 125 U/L (46-116); Anion Gap 15.2; Aspartate Amino Transferase 26 U/L (15-37); BUN Creatinine Ratio 35.3; Bilirubin Total 0.3 mg/dL (0.2-1.0); Calcium 8.7 mg/dL (8.5-10.1); Carbon Dioxide 21.6 mmol/L (21.0-32.0); Chloride 102 mmol/L (98-107); Estimated GFR (African America 20 (>=60); Estimated GFR (Non-African Ame 16 (>=60); Globulin 3.5 g/dL; Glucose 98 mg/dL (74-106); Potassium 4.8 mmol/L (3.5-5.1); Sodium 134 mmol/L (136-145); Total Protein 6.8 g/dL (6.4-8.2)
[2023-06-22] MEDS: HEPARIN SODIUM (PORCINE) PF LOCK FLUSH 500 UNIT/5 ML SYRINGE IV (13:26)
[2023-06-22 13:55] LABS: Basophils Percent Auto 0.3 % (0.2-2.0); Eosinophils Absolute Auto 0.2 10^3/uL (0.0-0.7); Eosinophils Percent Auto 2.5 % (0.9-7.0); Hematocrit 31.8 % (36.0-48.0); Hemoglobin 9.6 g/dL (12.0-16.0); Immature Granulocytes Abs Auto 0.08 10^3/uL (0.00-0.03); Immature Granulocytes Pct Auto 1.1 % (0.0-0.5); Lymphocytes Absolute Auto 0.8 10^3/uL (1.2-3.8); Lymphocytes Percent Auto 10.4 % (20.5-60.0); Mean Corpuscular HGB Conc 30.2 g/dL (29.9-35.2); Mean Corpuscular Hemoglobin 31.1 pg (26.7-34.0); Mean Corpuscular Volume 102.9 fL (81.0-99.0); Mean Platelet Volume 9.5 fL (9.5-13.5); Monocytes Absolute Auto 0.4 10^3/uL (0.3-0.8); Monocytes Percent Auto 5.3 % (1.7-12.0); Neutrophils Absolute Auto 6.1 10^3/uL (1.4-6.5); Neutrophils Percent Auto 80.4 % (43.0-75.0); Platelet Count 291 10^3/uL (150-450); Red Blood Count 3.09 10^6/uL (4.20-5.40); Red Cell Distribution Width 13.8 % (11.0-15.0); White Blood Count 7.6 10^3/uL (4.0-11.0)
[2023-06-22 14:00] LABS: Alanine Aminotransferase 32 U/L (14-59); Albumin Globulin Ratio 0.8; Albumin Level 3.1 g/dL (3.4-5.0); Alkaline Phosphatase 139 U/L (46-116); Anion Gap 17.9; Aspartate Amino Transferase 28 U/L (15-37); BUN Creatinine Ratio 38.5; Bilirubin Total 0.3 mg/dL (0.2-1.0); Calcium 9.3 mg/dL (8.5-10.1); Carbon Dioxide 20.3 mmol/L (21.0-32.0); Chloride 103 mmol/L (98-107); Estimated GFR (African America 20 (>=60); Estimated GFR (Non-African Ame 16 (>=60); Globulin 3.7 g/dL; Glucose 94 mg/dL (74-106); Potassium 5.2 mmol/L (3.5-5.1); Sodium 136 mmol/L (136-145); Total Protein 6.8 g/dL (6.4-8.2)
== END 2023-06-22 13:36 | disposition home or self-care (01) ==
LOC: INF 07:29
PROVIDERS: PCP Family Medicine; Visit Provider Family Medicine
DX: I10 Essential (primary) hypertension (principal); E87.1 Hypo-osmolality and hyponatremia; R06.02 Shortness of breath
CPT/HCPCS: 36591; 80053; 83930; 85025; 87420; 87635; 87798; 87804; 87811; J1642

== ENCOUNTER 2023-06-22 12:28 | Outpatient (OUT) | payer MEDICARE, MEDICAID, SELFPAY ==
--- OUTSIDE RECORDS SUMMARY | 2023-06-22 12:33 | XMS_ITS | CCD ---
Author Name Unknown Address [address] [place] [address] Organization [facility] Care Team Providers Care Medical Reimbursement Manager Name Role Phone NIRMAL LEWIS Admitting Unavailable [...] SANTANA Primary Care Unavailable TadRaeann blair Unavailable Seu Leiva Unavailable MD Angle Santana Primary Care Provider [phone] WALLY Helm Emergency Provider [phone] Angle Santana Primary Care Unavailable Favian Helm [...] JURADO Consulting Unavailable JITENDRA LANGFORD Consulting Unavailable JUDAH CHARLES Consulting Unavailable ALDO MOORE Consulting Unavailable [...] Amoxicillin Drug Allergy 10-29-19 23 Unknown, Diarrhea [facility] (4 sources) Amoxicillin / Clavulanate Drug Allergy Unknown [facility] Other (10 sources) Povidone-Iodine; Translations: [POVIDONE-IODINE] Drug Allergy 10-11-19 23 Unknown, Rash [facility] (8 sources) Sulfamethoxazole / Trimethoprim Drug Allergy Unknown [facility] Other (1 source) sulfaSALAzine Drug Allergy Unknown [facility] Other (7 sources) Amoxicillin / Clavulanate Drug Allergy 11-26-19 13 Unknown [facility] (1 source) Bumetanide Drug Allergy 03-22-20 16 [facility] (1 source) Cephalexin Drug Allergy 01-15-20 14 [facility] (2 sources) gabapentin; Translations: [GABAPENTIN] Drug Allergy 08-19-19 22 [facility] (3 sources) Povidone-Iodine Drug Allergy 11-26-19 13 [facility] (1 source) pregabalin; Translations: [LYRICA] Drug Allergy 08-19-19 22 [facility] (5 sources) Sulfonamides (Antibiotic); Translations: [SULFA (SULFONAMIDE ANTIBIOTICS)] Drug allergy (disorder) 11-26-19 13 Rash [facility] (1 source) Sulfonamide Drug allergy Unknown [facility] Other (6 sources) Substance with sulfonamide structure and antibacterial mechanism of action (substance) Drug allergy Unknown [facility] Other (2 sources) Clavulanate; Translations: [clavulanic acid] Drug Allergy 10-29-19 23 Diarrhea [facility] (1 source) Amoxicillin Drug Allergy 10-29-19 23 [facility] (1 source) Povidone-Iodine Drug Allergy 10-29-19 23 [facility] (1 source) Sulfonamides (Antibiotic) Drug allergy (disorder) 10-29-19 [facility] (1 source) Ciprofloxacin Drug Allergy 05-26-20 [facility] (1 source) Cephalexin; Translations: [CEPHALEXIN] Drug Allergy 06-13-20 14 [facility] (1 source) Ciprofloxacin; Translations: [CIPROFLOXACIN] Drug Allergy 10-11-19 23 [facility] (1 source) Iodine; Translations: [IODINE] Drug Allergy 11-28-19 [facility] (1 source) pregabalin; Translations: [PREGABALIN] Drug Allergy 10-11-19 [facility] (1 source) Sulfamethoxazole / Trimethoprim; Translations: [SULFAMETHOXAZOLE-T RIMETHOPRIM] Drug Allergy 11-28-19 [facility] (1 source) AMOXICILLIN-POT CLAVULANATE; Translations: [AMOXICILLIN-POT CLAVULANATE] Propensity to adverse reactions to drug (disorder) 06-13-20 14 [facility] Medications Current Medications Medication Drug Class(es) [...] needed Orally every 4 hrs PRN Active [id number] 200 actuat albuterol 0.09 mg/actuat metered dose [...] 28, 2022 12:00am take 1 capsule by [facility] every twelve hours DULoxetine HCl 60 MG [...] For Her - as directed Orally Active Va-Uxgjskv-Emr-Iron Fm-Fa-Vitk (Multi For Her) 18 mg iron-600 mcg-80 mcg Tablet (1 source) Start: 9 take 1 tablet by mouth once daily Gw-Omuieqg-Lxr-Iron Fm-Fa-Vitk (Multi For Her) 18 mg iron-600 [...] disease (3 sources) Atherosclerotic heart disease of [place] coronary artery without angina pectoris; Translations: [ASHD CHEESH-NA CA W/O ANGINA PECTORIS] Onset: 3 Chronic [...] medical drugs (1 source) Adverse effect of qkytqrjioda-zxpksuukzs-y nzyme inhibitors, initial encounter; Translations: [ADVERSE EFFECT [...] aftercare (1 source) Polypharmacy ; Translations: [Other oysterman (current) drug therapy] 09-04-2018 Episodic Other aftercare (1 source) Other mcfp (current) drug therapy; Translations: [[employer] 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 THERAPY] Onset: 3 Episodic Other [...] Range Facility Office Visiton 02-22-2023 Follow-up visit [id number] Loren Moser 1960 F Date Provider Department Center 02/22/2023 Nick-RHIANNON BERNARD Family History Family history unknown: Yes Level of Service:47473 [place] OFFICE/OUTPATIENT ESTABLISHED MOD MDM 30-39 MIN Normal [facility] Follow-Upon 02-16-2023 Follow-Up [id number] Loren Moser 1960 F Date Provider Department Center 02/16/2023 293-SONNYTENISHA ALONSOD ORTHO MPORTHO Family History Family history unknown: Yes Level of Service:69901 [place] OFFICE/OUTPATIENT ESTABLISHED LOW MDM 20-29 MIN Reason for Visit and Comments: Pain [136] [facility] Consultation Noteon 02-10-20 Consultation Note [id number]:127 [facility] 36on 02-08-2023 36 Called patient to in form her she needs the CT done before her follow up w/ francisco. The appt has been cancelled and needs rescheduled. [facility] Consultation Noteon 02-09-20 Consultation Note [id number]:127 [facility] RAD - MISCon 02-08-2023 RAD - MISC [id number]#[id number]:127 [facility] 29on 01-13-2023 29 Addended by: OLU TORRES on: 02/07/2023 12:47 PM Modules accepted: Orders Normal [facility] Office Visiton 01-13-2023 Follow-up visit [id number] Loren Moser 1960 Provider Department Center 01/13/2023 SHERLY ROWE [facility] Family History Family history unknown: Yes Level of Service:05621 [place] OFFICE/OUTPATIENT NEW MODERATE MDM 45-59 MINUTES Reason for Visit and Comments: Pain [136] Pain [136] [facility] 36on 12-23-2022 36 Please tell her the renal function is much better now (creatinine 1.4 on 12/20/2022). I don't think she need to increase water pills. Follow up labs as scheduled. [facility] Telephoneon 12-23-2022 Telephone [id number] Loren Moser 1960 F Date Provider Department Center 12/23/2022 BENJIE LERMA [facility] No family history on file [facility] Office Visiton 12-15-2022 Follow-up visit [id number] Loren Moser [place] 1960 Provider Department Center 12/15/2022 BENJIE LERMA [facility] No family history on file Level of Service:36817 [place] OFFICE/OUTPATIENT ESTABLISHED MOD MDM 30-39 MIN Reason for Visit and Comments: Follow-up [361891] [facility] HPon 11-30-2022 HP H&P reviewed. The pa lux was examined and there are no changes to the H&P. [facility] NURSNOTEon 11-30-2022 NURSNOTE RN educated pt on d/ c instructions. RN encouraged pt to voice any questions or concerns. Pt verbalizes no questions or concerns at this time. Pt was walked off of unit with all of belongings. [facility] Orders Onlyon 11-23-2022 Orders Only [id number] Loren Moser marii [place] 1960 Provider Department Center 11/23/2022 MARTHA LAZCANO [facility] No family history on file [facility] CBC AUTO DIFFon 11-22-2022 BASO # 0.0 103/ul Normal 0.0-0.1 [facility] Comment on above: Performed By: #### C BC ####[facility] [address] [place] [address]Dr. Airam Tripathi Basophils/100 WBC (Bld) 0.6 % Normal 0.2-2.0 [facility] Comment on above: Performed By: #### C BC ####[facility] [address] [place] [id number]. Airam Tripathi EO # 0.1 103/ul Normal 0.0-0.7 [facility] Comment on above: Performed By: #### C BC ####[facility] [address]mort[address] [place] [id number]. Airam Tripathi Eosinophils/100 WBC (Bld) 1.7 % Normal 0.9-7.0 [facility] Comment on above: Performed By: #### C BC ####[facility] [address] [place] [address]Dr. Airam Tripathi Erythrocyte distribution width (RBC) [Ratio] 15.2 % Critically high 11.0-15.0 [facility] Comment on above: Performed By: #### C BC ####[facility] [address] [place], [place] [address]Dr. Airam Tripathi Hematocrit (Bld) [Volume fraction] 31.6 % Critically low 36.0-48.0 [facility] Comment on above: Performed By: #### C BC ####[facility] [address] [place], [place] [address]Dr. Selenaneil Tripathi Hemoglobin (Bld) [Mass/Vol] 9.9 g/dL Critically low 12.0-16.0 [facility] Comment on above: Performed By: #### C BC ####[facility] S[address] [place], [place] [address]Dr. Airam Tripathi IG # 0.02 10e3/ul Normal 0.00-0.03 [facility] Comment on above: Performed By: #### C BC ####[facility] X[address] [place], [place] [address]Dr. Selenaneil Tripathi IG % 0.4 % Normal 0.0-0.5 [facility] Comment on above: Performed By: #### C BC ####[facility] [address] [place], [place] [address]Dr. Airam Tripathi LYMPH # 0.8 103/ul Critically low 1.2-3.8 [facility] Comment on above: Performed By: #### C BC ####[facility] Canlrmrekt[address] [place], [place] [address]Dr. Airam Tripathi Lymphocytes/100 WBC (Bld) 16.9 % Critically low 20.5-60.0 [facility] Comment on above: Performed By: #### C BC ####[facility] [address]cfats[address] [place], [place] [address]Dr. Airam Tripathi MANUAL DIFF REQ NO Normal [facility] Comment on above: Performed By: #### C BC ####[facility] [address] [place] [address]Dr. Airam Deuce MCH (RBC) [Entitic mass] 28.4 pg Normal 26.7-34.0 [facility] Comment on above: Performed By: #### C BC ####[facility] [address]sh[address] [place] [address]Dr. Airam Tripathi MCHC (RBC) [Mass/Vol] 31.3 g/dL Normal 29.9-35.2 [facility] Comment on above: Performed By: #### C BC ####[facility] [address] [place], [place] [address]DrKianna Tripathi MCV (RBC) [Entitic vol] 90.8 fL Normal 81.0-99.0 [facility] Comment on above: Performed By: #### C BC ####[facility] [address] [place], [place] [address]DrKianna Tripathi MONO # 0.4 103/ul Normal 0.3-0.8 [facility] Comment on above: Performed By: #### C BC ####[facility] [address]zursse[address] [place], [place] [address]DrKianna Tripathi Monocytes/100 WBC (Bld) 8.9 % Normal 1.7-12.0 [facility] Comment on above: Performed By: #### C BC ####[facility] [address] [place], [place] [address]DrKianna Tripathi NEUT # 3.4 103/ul Normal 1.4-6.5 [facility] Comment on above: Performed By: #### C BC ####[facility] I[address] [place], [place] [address]DrKianna Tripathi Neutrophils/100 WBC (Bld) 71.5 % Normal 43.0-75.0 [facility] Comment on above: Performed By: #### C BC ####[facility] [address]vke[address] [place], [place] [address]DrKianna Trpiathi Platelet mean volume (Bld) [Entitic vol] 9.4 fL Critically low 9.5-13.5 [facility] Comment on above: Performed By: #### C BC ####[facility] [address] [place] [address]Dr. Airam Tripathi PLT 302 103/ul Normal 150-450 [facility] Comment on above: Performed By: #### C BC ####[facility] [address] [place] [address]Dr. Airam Tripathi RBC 3.48 106/ul Critically low 4.20-5.40 [facility] Comment on above: Performed By: #### C BC ####[facility] [address] [place] [address]Dr. Airam Tripathi WBC 4.7 103/ul Normal 4.0-11.0 [facility] Comment on above: Performed By: #### C BC ####[facility] [address] [place] [address]DrKianna Tripathi PROF 14(COMP METB)on 023 Albumin [Mass/Vol] 3.4 g/dL Normal 3.4-5.0 [facility] Comment on above: Performed By: #### C MP ####[facility] [address] [place], [place] [address]DrKianna Tripathi Albumin/Globulin [Mass ratio] 1.0 {ratio} Normal [facility] Comment on above: Performed By: #### C MP ####[facility] [address] [place] [address]Dr. Airam Tripathi ALP [Catalytic activity/Vol] 123 U/L Critically high 46-116 [facility] Comment on above: Performed By: #### C MP ####[facility] [address] [place] [address]Dr. Airam Tripathi ALT [Catalytic activity/Vol] 24 U/L Normal 14-59 [facility] Comment on above: Performed By: #### C MP ####[facility] [address] [place] [address]DrKianna Tripathi Anion gap [Moles/Vol] 12.1 mmol/L Normal [facility] Comment on above: Performed By: #### C MP ####[facility] [address] [place] [id number]. Airam Tripathi AST [Catalytic activity/Vol] 30 U/L Normal 15-37 [facility] Comment on above: Performed By: #### C MP ####[facility] [address] [place] [id number]. Airam Tripathi Bilirubin [Mass/Vol] 0.4 mg/dL Normal 0.2-1.0 [facility] Comment on above: Performed By: #### C MP ####[facility] [address] [place] [id number]. Airam Tripathi Calcium [Mass/Vol] 8.9 mg/dL Normal 8.5-10.1 [facility] Comment on above: Performed By: #### C MP ####[facility] E[address]fqjoj[address] [place], [place] [address]Dr. Airam Tripathi Chloride [Moles/Vol] 95 mmol/L Critically low 98-107 [facility] Comment on above: Performed By: #### C MP ####[facility] [address]laswp[address] [place] [id number]. Airam Tripathi CO2 [Moles/Vol] 28.7 mmol/L Normal 21.0-32.0 [facility] Comment on above: Performed By: #### C MP ####[facility] [address]pt[address] [place] [id number]. Airam Tripathi Creatinine [Mass/Vol] 1.25 mg/dL Critically high 0.55-1.02 [facility] Comment on above: Performed By: #### C MP ####[facility] [address]isk[address] [place] [id number]. Airam Tripathi EGFR-AF GUAMANIAN 53 mL/min/1.73m2 Critically low >=60 [facility] Comment on above: Performed By: #### C MP ####[facility] [address]dpethip[address] [place] [id number]. Airam Deuce EGFR-NON AF GUAMANIAN 44 mL/min/1.73m2 Critically low >=60 [facility] Comment on above: Performed By: #### C MP ####[facility] [address] [place] [address]Dr. Airam Tripathi Globulin (S) [Mass/Vol] 3.5 g/dL Normal [facility] Comment on above: Performed By: #### C MP ####[facility] [address] [place] [address]Dr. Ariam Tripathi Glucose [Mass/Vol] 89 mg/dL Normal 74-106 [facility] Comment on above: Performed By: #### C MP ####[facility] [address]hed[address] [place] [address]Dr. Airam Deuce Potassium [Moles/Vol] 4.8 mmol/L Normal 3.5-5.1 [facility] Comment on above: Performed By: #### C MP ####[facility] [address]myv[address] [place], [place] [address]Dr. Airam Deuce Protein [Mass/Vol] 6.9 g/dL Normal 6.4-8.2 [facility] Comment on above: Performed By: #### C MP ####[facility] Srrofzupdc[address] [place] [address]Dr. Airam Deuce Sodium [Moles/Vol] 131 mmol/L Critically low 136-145 [facility] Comment on above: Performed By: #### C MP ####[facility] Qird[address]wfvgq[address] [place] [address]Dr. Airma Deuce Urea nitrogen [Mass/Vol] 37.0 mg/dL Critically high 7.0-18.0 [facility] Comment on above: Performed By: #### C MP ####[facility] [address]we[address] [place] [address]Dr. Airam Deuce Urea nitrogen/Creatinine [Mass ratio] 29.6 mg/mg Normal [facility] Comment on above: Performed By: #### C MP ####[facility] [address] [place] [address]Dr. Airam Deuce OSMOLALITYon 11-18-2022 Osmolality [Osmolality] 293 mosm/kg Normal 275-295 [facility] Comment on above: Performed By: #### O SMO ####[facility] [address]ws[address]izqy[address] [place], [place] [address]Dr. Airam Tripathi BNPon 11-16-2022 Natriuretic peptide B (Bld) [Mass/Vol] 1142.0 pg/mL Critically high <=900.0 [facility] Comment on above: Performed By: #### B HEADING MACHINE OPERATOR ####[facility] [address]cwcvsy[address] [place], [place] [address]Dr. Airam Deuce CBC AUTO DIFFon 11-16-2022 BASO # 0.0 103/ul Normal 0.0-0.1 [facility] Comment on above: Performed By: #### C BC ####[facility] Initrhhgpx[address] [place], [place] [address]Dr. Airam Tripathi Basophils/100 WBC (Bld) 0.3 % Normal 0.2-2.0 [facility] Comment on above: Performed By: #### C BC ####[facility] B[address]dxviy[address] [place], [place] [address]Dr. Airam Tripathi EO # 0.3 103/ul Normal 0.0-0.7 [facility] Comment on above: Performed By: #### C BC ####[facility] S[address] [place], [place] [address]Dr. Airam Tripathi Eosinophils/100 WBC (Bld) 4.6 % Normal 0.9-7.0 [facility] Comment on above: Performed By: #### C BC ####[facility] [address]opwza[address] [place], [place] [address]Dr. Airam Tripathi Erythrocyte distribution width (RBC) [Ratio] 16.1 % Critically high 11.0-15.0 [facility] Comment on above: Performed By: #### C BC ####[facility] Ipsbdwqoig[address] [place], [place] [address]DrKianna Tripathi Hematocrit (Bld) [Volume fraction] 28.0 % Critically low 36.0-48.0 [facility] Comment on above: Performed By: #### C BC ####[facility] [address] [place] [address]Dr. Airam Tripathi Hemoglobin (Bld) [Mass/Vol] 8.9 g/dL Critically low 12.0-16.0 [facility] Comment on above: Performed By: #### C BC ####[facility] [address] [place] [address]Dr. Ariam Tripathi IG # 0.02 10e3/ul Normal 0.00-0.03 [facility] Comment on above: Performed By: #### C BC ####[facility] [address]fr[address] [place] [address]Dr. Airam Tripathi IG % 0.3 % Normal 0.0-0.5 [facility] Comment on above: Performed By: #### C BC ####[facility] [address] [place], [place] [address]Dr. Airam Tripathi LYMPH # 1.5 103/ul Normal 1.2-3.8 [facility] Comment on above: Performed By: #### C BC ####[facility] Rx[address]fupdja[address] [place], [place] [address]Dr. Airam Tripathi Lymphocytes/100 WBC (Bld) 24.2 % Normal 20.5-60.0 [facility] Comment on above: Performed By: #### C BC ####[facility] Omce[address]xcoep[address] [place], [place] [address]Dr. Airam Tripathi MANUAL DIFF REQ NO Normal [facility] Comment on above: Performed By: #### C BC ####[facility] [address]zc[address] [place], [place] [address]Dr. Airam Tripathi MCH (RBC) [Entitic mass] 29.3 pg Normal 26.7-34.0 [facility] Comment on above: Performed By: #### C BC ####[facility] Tr[address]boec[address] [place], [place] [address]Dr. Airam Tripathi MCHC (RBC) [Mass/Vol] 31.8 g/dL Normal 29.9-35.2 [facility] Comment on above: Performed By: #### C BC ####[facility] Ow[address]og[address] [place], [place] [address]Dr. Airam Tripathi MCV (RBC) [Entitic vol] 92.1 fL Normal 81.0-99.0 [facility] Comment on above: Performed By: #### C BC ####[facility] [address]tf[address] [place] [address]Dr. Airam Tripathi MONO # 0.6 103/ul Normal 0.3-0.8 [facility] Comment on above: Performed By: #### C BC ####[facility] Ogtf[address]lfgu[address] [place], [place] [address]Dr. Airam Deuce Monocytes/100 WBC (Bld) 10.0 % Normal 1.7-12.0 [facility] Comment on above: Performed By: #### C BC ####[facility] [address]mipnpr[address] [place], [place] [address]Dr. Airam Tripathi NEUT # 3.7 103/ul Normal 1.4-6.5 [facility] Comment on above: Performed By: #### C BC ####[facility] Ikg[address]lyyrw[address] [place], [place] [address]Dr. Airam Deuce Neutrophils/100 WBC (Bld) 60.6 % Normal 43.0-75.0 [facility] Comment on above: Performed By: #### C BC ####[facility] [address]ormmu[address] [place], [place] [address]Dr. Airam Deuce Platelet mean volume (Bld) [Entitic vol] 9.1 fL Critically low 9.5-13.5 [facility] Comment on above: Performed By: #### C BC ####[facility] Eatuvkfruu[address] [place], [place] [address]Dr. Airam Deuce PLT 242 103/ul Normal 150-450 [facility] Comment on above: Performed By: #### C BC ####[facility] Ikev[address] [place], [place] [address]Dr. Selenaneil Deuce RBC 3.04 106/ul Critically low 4.20-5.40 [facility] Comment on above: Performed By: #### C BC ####[facility] [address]vy[address] [place], [place] [address]DrKianna Tripathi WBC 6.1 103/ul Normal 4.0-11.0 [facility] Comment on above: Performed By: #### C BC ####[facility] [address] [place] [address]Dr[address] Air[address] CT STROKE HEAD WOon 11-17-19 CT STROKE HEAD WO Normal [facility] PROF CHEM 8 (BAS METB)on Anion gap [Moles/Vol] 9.8 mmol/L Normal [facility] Comment on above: Performed By: #### B MP, HSTROPN ####[facility] [address]ab[address] [place] [address]Dr. Airam Tripathi Calcium [Mass/Vol] 8.4 mg/dL Critically low 8.5-10.1 [facility] Comment on above: Performed By: #### B MP, HSTROPN ####[facility] [address] [place] [address]Dr. Airam Tripathi Chloride [Moles/Vol] 99 mmol/L Normal 98-107 [facility] Comment on above: Performed By: #### B MP, HSTROPN ####[facility] [address] [place] [address]Dr. Airam Tripathi CO2 [Moles/Vol] 28.3 mmol/L Normal 21.0-32.0 [facility] Comment on above: Performed By: #### B MP, HSTROPN ####[facility] [address]se[address] [place], [place] [address]Dr. Airam Tripathi Creatinine [Mass/Vol] 1.40 mg/dL Critically high 0.55-1.02 [facility] Comment on above: Performed By: #### B MP, HSTROPN ####[facility] [address] [place], [place] [address]Dr. Airam Tripathi EGFR-AF GUAMANIAN 46 mL/min/1.73m2 Critically low >=60 [facility] Comment on above: Performed By: #### B MP, HSTROPN ####[facility] Wsiyrjbzzk[address] [place], [place] [address]Dr. Airam Tripathi EGFR-NON AF GUAMANIAN 38 mL/min/1.73m2 Critically low >=60 [facility] Comment on above: Performed By: #### B GERTRUDE, HSTROPN ####[facility] [address] [place] [address]Dr. Airam Tripathi Glucose [Mass/Vol] 88 mg/dL Normal 74-106 [facility] Comment on above: Performed By: #### B GERTRUDE, HSTROPN ####[facility] Fnffrrxxms22[address] [place] [address]Dr. Airam Tripathi Potassium [Moles/Vol] 5.1 mmol/L Normal 3.5-5.1 [facility] Comment on above: Performed By: #### B GERTRUDE, HSTROPN ####[facility] Goofqumsuq[address] [place] [address]Dr. Airam Tripathi Sodium [Moles/Vol] 132 mmol/L Critically low 136-145 [facility] Comment on above: Performed By: #### B GERTRUDE, HSTROPN ####[facility] Mmsxijsmyj47[address] [place] [address]Dr. Airam Tripathi Urea nitrogen [Mass/Vol] 56.0 mg/dL Critically high 7.0-18.0 [facility] Comment on above: Performed By: #### B GERTRUDE, HSTROPN ####[facility] Xrjxoakqba5[address] [place] [address]Dr. Airam Tripathi Urea nitrogen/Creatinine [Mass ratio] 40.0 mg/mg Normal [facility] Comment on above: Performed By: #### B GERTRUDE, HSTROPN ####[facility] Cnrogaltps[address] [place] [address]Dr. Airam Tripathi TROPONIN, HIGH SENSITIVITYon 11-16-2022 HSTROP 9.9 pg/mL Normal 4.0-51.3 [facility] Comment on above: Result Comment: CUT- OFF POINTS HAVE BEEN ESTABLISHED BASED ON THE FOURTH UNIVERSAL DEFINITIONS OF MYOCARDIALINFARCTION. THE UPPER REFERENCE LIMIT (URL) OF TROPONIN, DEFINED THE 99TH PERCENTILE OFcTnI DISTRIBUTION IN A REFERENCE POPULATION, HAS BEEN CONFIRMED THE DECISION THRESHOLDFOR AK DIAGNOSIS. Performed By: #### B MP, HSTROPN ####[facility] [address]wykvrus[address] [place] [address]Dr. Airam Tripathi XR CHEST 1 Von 11-16-2022 XR CHEST 1 V Normal [facility] CBC AUTO DIFFon 11-11-2022 BASO # 0.0 103/ul Normal 0.0-0.1 [facility] Comment on above: Performed By: #### C BC ####[facility] Lwxueuwlyb[address] [place], [place] [address]Dr. Airam Deuce Basophils/100 WBC (Bld) 0.4 % Normal 0.2-2.0 [facility] Comment on above: Performed By: #### C BC ####[facility] Lzznarulwe[address] [place], [place] [address]Dr. Airam Tripathi EO # 0.4 103/ul Normal 0.0-0.7 [facility] Comment on above: Performed By: #### C BC ####[facility] Uhchkndnts[address] [place], [place] [address]Dr. Airam Tripathi Eosinophils/100 WBC (Bld) 4.6 % Normal 0.9-7.0 [facility] Comment on above: Performed By: #### C BC ####[facility] Jqvylmgwsg[address] [place], [place] [address]Dr. Airam Tripathi Erythrocyte distribution width (RBC) [Ratio] 15.8 % Critically high 11.0-15.0 [facility] Comment on above: Performed By: #### C BC ####[facility] Ewvfewfeix[address] [place], [place] [address]Dr. Airam Tripathi Hematocrit (Bld) [Volume fraction] 30.3 % Critically low 36.0-48.0 [facility] Comment on above: Performed By: #### C BC ####[facility] Bxvlfdntyb[address] [place], [place] [address]Dr. Airam Tripathi Hemoglobin (Bld) [Mass/Vol] 9.3 g/dL Critically low 12.0-16.0 [facility] Comment on above: Performed By: #### C BC ####[facility] [address]me[address]ugjwd[address] [place] [id number]. Airam Tripathi IG # 0.03 10e3/ul Normal 0.00-0.03 [facility] Comment on above: Performed By: #### C BC ####[facility] Pjbcrgkrvs30[address] [place] [address]Dr. Airam Tripathi IG % 0.4 % Normal 0.0-0.5 [facility] Comment on above: Performed By: #### C BC ####[facility] Jcueazrpgh18[address] [place] [address]Dr. Airam Deuce LYMPH # 2.0 103/ul Normal 1.2-3.8 [facility] Comment on above: Performed By: #### C BC ####[facility] Aqsedepufj1044 [place] [address]Dr. Airam Tripathi Lymphocytes/100 WBC (Bld) 24.5 % Normal 20.5-60.0 [facility] Comment on above: Performed By: #### C BC ####[facility] Auolygaqbp1680 [place] [address]Dr. Selenaneil Tripathi MANUAL DIFF REQ NO Normal [facility] Comment on above: Performed By: #### C BC ####[facility] Hnrnlybswm66[address] [place] [address]Dr. Airam Tripathi MCH (RBC) [Entitic mass] 28.9 pg Normal 26.7-34.0 [facility] Comment on above: Performed By: #### C BC ####[facility] Tgfuntpvll93[address] [place] [address]Dr. Airam Tripathi MCHC (RBC) [Mass/Vol] 30.7 g/dL Normal 29.9-35.2 [facility] Comment on above: Performed By: #### C BC ####[facility] Ihyvxeisse[address] [place], [place] [address]Dr. Airam Tripathi MCV (RBC) [Entitic vol] 94.1 fL Normal 81.0-99.0 [facility] Comment on above: Performed By: #### C BC ####[facility] Osdpiozbyn8[address] [place] [id number]. Airam Tripathi MONO # 0.7 103/ul Normal 0.3-0.8 [facility] Comment on above: Performed By: #### C BC ####[facility] Vtsecrxslw15[address] [place] [address]Dr. Airam Tripathi Monocytes/100 WBC (Bld) 8.3 % Normal 1.7-12.0 [facility] Comment on above: Performed By: #### C BC ####[facility] Outyzrzcpo[address] [place], [place] [address]Dr. Airam Tripathi NEUT # 5.0 103/ul Normal 1.4-6.5 [facility] Comment on above: Performed By: #### C BC ####[facility] Stnrlekabq[address] [place], [place] [address]Dr. Airam Deuce Neutrophils/100 WBC (Bld) 61.8 % Normal 43.0-75.0 [facility] Comment on above: Performed By: #### C BC ####[facility] Hhxctdjsmp[address] [place], [place] [address]Dr. Airam Tripathi Platelet mean volume (Bld) [Entitic vol] 9.4 fL Critically low 9.5-13.5 [facility] Comment on above: Performed By: #### C BC ####[facility] Fyoczehtvq[address] [place] [address]Dr. Airam Deuce PLT 270 103/ul Normal 150-450 [facility] Comment on above: Performed By: #### C BC ####[facility] Qyetoxpogj377[address] [place], [place] [address]Dr. Airam Deuce RBC 3.22 106/ul Critically low 4.20-5.40 [facility] Comment on above: Performed By: #### C BC ####[facility] [address]peqgni[address] [place], [place] [id number]. Airam Deuce WBC 8.1 103/ul Normal 4.0-11.0 [facility] Comment on above: Performed By: #### C BC ####[facility] Gibkdjgmir[address] [place], [place] [address]Dr. Airam Tripathi PROF 14(COMP METB)on 023 Albumin [Mass/Vol] 3.2 g/dL Critically low 3.4-5.0 [facility] Comment on above: Performed By: #### C MP ####[facility] Bwwddjqakf[address] [place], [place] [address]Dr. Airam Tripathi Albumin/Globulin [Mass ratio] 1.0 {ratio} Normal [facility] Comment on above: Performed By: #### C MP ####[facility] Ljegrocsma[address] [place], [place] [address]Dr. Airam Tripathi ALP [Catalytic activity/Vol] 108 U/L Normal 46-116 [facility] Comment on above: Performed By: #### C MP ####[facility] Ovaxqnoeht[address] [place], [place] [address]Dr. Airam Tripathi ALT [Catalytic activity/Vol] 30 U/L Normal 14-59 [facility] Comment on above: Performed By: #### C MP ####[facility] Uzscubfckp[address] [place], [place] [address]Dr. Airam Tripathi Anion gap [Moles/Vol] 12.8 mmol/L Normal [facility] Comment on above: Performed By: #### C MP ####[facility] Cqanfzyuwr[address] [place], [place] [address]Dr. Airam Tripathi AST [Catalytic activity/Vol] 33 U/L Normal 15-37 [facility] Comment on above: Performed By: #### C MP ####[facility] Mwxpcjnqok[address] [place], [place] [address]DrKianna Tripathi Bilirubin [Mass/Vol] 0.2 mg/dL Normal 0.2-1.0 [facility] Comment on above: Performed By: #### C MP ####[facility] Qzwxifraaw[address] [place], [place] [address]DrKianna Tripathi Calcium [Mass/Vol] 8.3 mg/dL Critically low 8.5-10.1 [facility] Comment on above: Performed By: #### C MP ####[facility] Eztzmklqse[address] [place], [place] [address]Dr. Airam Tripathi Chloride [Moles/Vol] 99 mmol/L Normal 98-107 [facility] Comment on above: Performed By: #### C MP ####[facility] Zymsqvdusf34[address] [place] [address]Dr. Airam Tripathi CO2 [Moles/Vol] 27.6 mmol/L Normal 21.0-32.0 [facility] Comment on above: Performed By: #### C MP ####[facility] Iynkcolaqs[address] [place], [place] [address]Dr. Airam Deuce Creatinine [Mass/Vol] 2.01 mg/dL Critically high 0.55-1.02 [facility] Comment on above: Performed By: #### C MP ####[facility] Eerjyxiqzl[address] [place], [place] [address]Dr. Airam Tripathi EGFR-AF GUAMANIAN 31 mL/min/1.73m2 Critically low >=60 [facility] Comment on above: Performed By: #### C MP ####[facility] Cdsnfsskdj[address] [place], [place] [address]Dr. Airam Deuce EGFR-NON AF GUAMANIAN 25 mL/min/1.73m2 Critically low >=60 [facility] Comment on above: Performed By: #### C MP ####[facility] Nrxsntqmvp[address] [place], [place] [address]Dr. Airam Tripathi Globulin (S) [Mass/Vol] 3.2 g/dL Normal [facility] Comment on above: Performed By: #### C MP ####[facility] [address]zmqzngjm[address] [place], [place] [address]Dr. Airam Tripathi Glucose [Mass/Vol] 158 mg/dL Critically high 74-106 [facility] Comment on above: Performed By: #### C MP ####[facility] Fszciscqon[address] [place], [place] [address]Dr. Airam Tripathi Potassium [Moles/Vol] 5.4 mmol/L Critically high 3.5-5.1 [facility] Comment on above: Performed By: #### C MP ####[facility] Kcesbqtrtf[address] [place], [place] [address]Dr. Airam Tripathi Protein [Mass/Vol] 6.4 g/dL Normal 6.4-8.2 [facility] Comment on above: Performed By: #### C MP ####[facility] [address] [place], [place] [address]Vv. Airam Tripathi Sodium [Moles/Vol] 134 mmol/L Critically low 136-145 [facility] Comment on above: Performed By: #### C MP ####[facility] Rgvbqvreot4106 [place] [phone]. Airam Tripathi Urea nitrogen [Mass/Vol] 52.0 mg/dL Critically high 7.0-18.0 [facility] Comment on above: Performed By: #### C MP ####[facility] Tifugyjncl[address] [place] [phone]. Airam Tripathi Urea nitrogen/Creatinine [Mass ratio] 25.9 mg/mg Normal [facility] Comment on above: Performed By: #### C MP ####[facility] [address]qsmujem[address] [place] [phone]. Airam Tripathi HPon 11-07-2022 [facility] Cardiology - [facility] Subjective Mabel Moser is a 62 y.o. year old female patient being seen for 2 week follow up per Sofie Bernard CNP. She says since she was last seen on 10/28, Dr. Santana increased her Entresto to 97-103mg bid, metoprolol to 50mg TID, and hydralazine to 100mg TID. Says she was in [facility] ED again last Monday with a BP of 214/127. Patient Active Problem List Diagnosis Abnormal weight loss Acute sinusitis Amnesia Anxiety Other specified anxiety disorders Mitral valve regurgitation Pulmonic valve regurgitation Aortic valve regurgitation Arthritis of right knee Benign essential hypertension Bilateral hearing loss Chronic obstructive pulmonary disease (CMS/HCC) CKD (chronic kidney disease) stage 3, GFR 30-59 ml/min ([facility]/HCC) Closed fracture of trochanter of femur (CMS/HCC) [...] In the past she was admitted to [facility] in 2019 with fluid overload and [...] distension. Pal (more content not included)... Normal [facility] Office Visiton 11-07-2022 Follow-up visit [id number] Loren Moser 1960 F Date Provider Department Center 11/07/2022 BENJIE LERMA [facility] No family history on file Level of Service:22429 [place] OFFICE/OUTPATIENT ESTABLISHED MOD MDM 30-39 MIN Normal [facility] OSMOLALITYon 11-06-2022 Osmolality [Osmolality] 261 mosm/kg Critically low 275-295 [facility] Comment on above: Performed By: #### O [facility] ####[facility] Eyfr[address]vss[address] [place], [place] [address]Xh. Airam Tripathi XR HIPS GUMARO 3_4V WO PELVISon 11-04-2022 XR HIPS GUMARO 3_4V WO PELVIS Normal [facility] XR KNEE LT 4V or >on 023 XR KNEE LT 4V or > Normal [facility] BNPon 11-03-2022 Natriuretic peptide B (Bld) [Mass/Vol] 1168.0 pg/mL Critically high <=900.0 [facility] Comment on above: Performed By: #### B HEADING MACHINE OPERATOR, BMP ####[facility] Ckyrakbrtj[address] [place], [place] [address]Dr. Airam Deuce CBC AUTO DIFFon 11-03-2022 BASO # 0.0 103/ul Normal 0.0-0.1 [facility] Comment on above: Performed By: #### C BC ####[facility] [address]qwpsltyr[address] [place], [place] [address]Dr. Airam Tripathi Basophils/100 WBC (Bld) 0.3 % Normal 0.2-2.0 [facility] Comment on above: Performed By: #### C BC ####[facility] Hygmfttffn[address] [place], [place] [address]Dr. Airam Tripathi EO # 0.2 103/ul Normal 0.0-0.7 [facility] Comment on above: Performed By: #### C BC ####[facility] Xnuwhpgbup[address] [place], [place] [address]Dr. Airam Tripathi Eosinophils/100 WBC (Bld) 1.9 % Normal 0.9-7.0 [facility] Comment on above: Performed By: #### C BC ####[facility] Xkcpblftuq[address] [place], [place] [address]Dr. Airam Tripathi Erythrocyte distribution width (RBC) [Ratio] 15.2 % Critically high 11.0-15.0 [facility] Comment on above: Performed By: #### C BC ####[facility] W[address]jpsuqmo[address] [place], [place] [address]Dr. Airam Tripathi Hematocrit (Bld) [Volume fraction] 34.3 % Critically low 36.0-48.0 [facility] Comment on above: Performed By: #### C BC ####[facility] [address]azflobf[address] [place], [place] [address]Dr. Airam Tripathi Hemoglobin (Bld) [Mass/Vol] 11.0 g/dL Critically low 12.0-16.0 [facility] Comment on above: Performed By: #### C BC ####[facility] Hrmsfhljps64[address] [place] [phone]. Airam Tripathi IG # 0.06 10e3/ul Critically high 0.00-0.03 [facility] Comment on above: Performed By: #### C BC ####[facility] Taiqjzztba3814 [place] [phone]. Airam Deuce IG % 0.5 % Normal 0.0-0.5 [facility] Comment on above: Performed By: #### C BC ####[facility] Qioiljqmfz4[address] [place] [address]Dr. Airam Deuce LYMPH # 2.3 103/ul Normal 1.2-3.8 [facility] Comment on above: Performed By: #### C BC ####[facility] Cldvggospq4886 [place] [address]DrKianna Tripathi Lymphocytes/100 WBC (Bld) 20.4 % Critically low 20.5-60.0 [facility] Comment on above: Performed By: #### C BC ####[facility] Mwfjawqhow60[address] [place] [address]DrKianna Selenaneil Tripathi MANUAL DIFF REQ NO Normal [facility] Comment on above: Performed By: #### C BC ####[facility] Edmsnncyyd0662 [place] [phone]. Airam Deuce MCH (RBC) [Entitic mass] 28.7 pg Normal 26.7-34.0 [facility] Comment on above: Performed By: #### C BC ####[facility] Hzqqaximaj3084 [place] [phone]. Airam Deuce MCHC (RBC) [Mass/Vol] 32.1 g/dL Normal 29.9-35.2 [facility] Comment on above: Performed By: #### C BC ####[facility] Qfyosmrjzk7080 [place] [phone]. Airam Deuce MCV (RBC) [Entitic vol] 89.6 fL Normal 81.0-99.0 [facility] Comment on above: Performed By: #### C BC ####[facility] Fzcjsrnqvx0830 [place] [phone]. Airam Tripathi MONO # 0.9 103/ul Critically high 0.3-0.8 [facility] Comment on above: Performed By: #### C BC ####[facility] Qmuxbvkylj2982 [place] [phone]. Airam Tripathi Monocytes/100 WBC (Bld) 8.3 % Normal 1.7-12.0 [facility] Comment on above: Performed By: #### C BC ####[facility] Ndkoszmocc6909 [place] [phone]. Airam Tripathi NEUT # 7.8 103/ul Critically high 1.4-6.5 [facility] Comment on above: Performed By: #### C BC ####[facility] [address]prppjrg[address] [place], [place] [address]Dr. Airam Tripathi Neutrophils/100 WBC (Bld) 68.6 % Normal 43.0-75.0 [facility] Comment on above: Performed By: #### C BC ####[facility] Bzrbetpmor2932 [place] [phone]. Airam Tripathi Platelet mean volume (Bld) [Entitic vol] 8.9 fL Critically low 9.5-13.5 [facility] Comment on above: Performed By: #### C BC ####[facility] Phdlccktyi8425 [place] [phone]. Airam Tripathi PLT 323 103/ul Normal 150-450 [facility] Comment on above: Performed By: #### C BC ####[facility] [address]of[address]ds[address] [place], [place] [address]Dr. Airam Tripathi RBC 3.83 106/ul Critically low 4.20-5.40 [facility] Comment on above: Performed By: #### C BC ####[facility] Kinkjljxqq9544 [place] [phone]. Airam Tripathi WBC 11.4 103/ul Critically high 4.0-11.0 [facility] Comment on above: Performed By: #### C BC ####[facility] Vgtajkoacr0384 [place] [phone]. Airam Tripathi BASO # 0.0 103/ul Normal 0.0-0.1 [facility] Comment on above: Performed By: #### C BC ####[facility] Mihrbfcvyt6695 [place] [phone]. Airam Tripathi Basophils/100 WBC (Bld) 0.2 % Normal 0.2-2.0 [facility] Comment on above: Performed By: #### C BC ####[facility] Dsxcrntshx[address] [place], [place] [address]Dr. Airam Tripathi EO # 0.1 103/ul Normal 0.0-0.7 [facility] Comment on above: Performed By: #### C BC ####[facility] Vrwqdcihqn[address] [place], [place] [address]Dr. Airam Tripathi Eosinophils/100 WBC (Bld) 0.7 % Critically low 0.9-7.0 [facility] Comment on above: Performed By: #### C BC ####[facility] Gqqioxxers[address] [place], [place] [address]Dr. Airam Tripathi Erythrocyte distribution width (RBC) [Ratio] 15.4 % Critically high 11.0-15.0 [facility] Comment on above: Performed By: #### C BC ####[facility] [address]bxqekgi[address] [place], [place] [id number]. Airam Tripathi Hematocrit (Bld) [Volume fraction] 33.6 % Critically low 36.0-48.0 [facility] Comment on above: Performed By: #### C BC ####[facility] [address]sevmqzj[address] [place], [place] [id number]. Airam Tripathi Hemoglobin (Bld) [Mass/Vol] 10.9 g/dL Critically low 12.0-16.0 [facility] Comment on above: Performed By: #### C BC ####[facility] Kw[address]viwtnfg[address] [place], [place] [address]Dr. Airam Tripathi IG # 0.04 10e3/ul Critically high 0.00-0.03 [facility] Comment on above: Performed By: #### C BC ####[facility] Ehoskrcprv7123 [place] [phone]. Airam Tripathi IG % 0.5 % Normal 0.0-0.5 [facility] Comment on above: Performed By: #### C BC ####[facility] Eatkcdyjox9172 [place] [phone]. Airam Tripathi LYMPH # 1.1 103/ul Critically low 1.2-3.8 [facility] Comment on above: Performed By: #### C BC ####[facility] Gpggdaelwu47[address] [place] [address]Dr. Airam Tripathi Lymphocytes/100 WBC (Bld) 13.3 % Critically low 20.5-60.0 [facility] Comment on above: Performed By: #### C BC ####[facility] W[address]zqaiqdp[address] [place] [address]Dr. Airam Tripathi MANUAL DIFF REQ NO Normal [facility] Comment on above: Performed By: #### C BC ####[facility] Svzzbsljqa5649 [place] [phone]. Airam Tripathi MCH (RBC) [Entitic mass] 29.1 pg Normal 26.7-34.0 [facility] Comment on above: Performed By: #### C BC ####[facility] Rosclcyhvc2527 [place] [phone]. Airam Tripathi MCHC (RBC) [Mass/Vol] 32.4 g/dL Normal 29.9-35.2 [facility] Comment on above: Performed By: #### C BC ####[facility] Mfztycfpji2703 [place] [phone]. Airam Tripathi MCV (RBC) [Entitic vol] 89.6 fL Normal 81.0-99.0 [facility] Comment on above: Performed By: #### C BC ####[facility] [address]zybicv[address] [place], [place] [address]Dr. Airam Deuce MONO # 0.5 103/ul Normal 0.3-0.8 [facility] Comment on above: Performed By: #### C BC ####[facility] Hnfxkdhgvl3967 [place] [phone]. Airam Tripathi Monocytes/100 WBC (Bld) 6.4 % Normal 1.7-12.0 [facility] Comment on above: Performed By: #### C BC ####[facility] Ptqvjrbrbl4100 [place] [phone]. Airam Tripathi NEUT # 6.5 103/ul Normal 1.4-6.5 [facility] Comment on above: Performed By: #### C BC ####[facility] Eabpwlmeeu[address]3 [place] [phone]. Airam Tripathi Neutrophils/100 WBC (Bld) 78.9 % Critically high 43.0-75.0 [facility] Comment on above: Performed By: #### C BC ####[facility] Yktxbvqatc4428 [place] [address]Dr. Airam Tripathi Platelet mean volume (Bld) [Entitic vol] 9.4 fL Critically low 9.5-13.5 [facility] Comment on above: Performed By: #### C BC ####[facility] Az[address]zj[address]psp[address] [place] [address]Dr. Airam Tripathi PLT 314 103/ul Normal 150-450 [facility] Comment on above: Performed By: #### C BC ####[facility] Eqtkdheynm7363 [place] [address]Dr. Airam Tripathi RBC 3.75 106/ul Critically low 4.20-5.40 [facility] Comment on above: Performed By: #### C BC ####[facility] Ubxjpzyghm8592 [place] [phone]. Airam Tripathi WBC 8.3 103/ul Normal 4.0-11.0 [facility] Comment on above: Performed By: #### C BC ####[facility] [address]axkkulnk[address] [place] [address] Air[address] Tripathi CT HEAD WO CONon 11-03-2022 CT HEAD WO CON Normal [facility] PROF 14(COMP METB)on 023 Albumin [Mass/Vol] 3.2 g/dL Critically low 3.4-5.0 [facility] Comment on above: Performed By: #### C MP ####[facility] Itraqbgitv[address] [place] [address]Dr. Selenaneil Deuce Albumin/Globulin [Mass ratio] 0.9 {ratio} Normal [facility] Comment on above: Performed By: #### C MP ####[facility] Qjoeuupqgy[address] [place] [address]Dr. Airam Tripathi ALP [Catalytic activity/Vol] 109 U/L Normal 46-116 [facility] Comment on above: Performed By: #### C MP ####[facility] Krrijhxj[address] [place], [place] [address]Dr. Airam Tripathi ALT [Catalytic activity/Vol] 25 U/L Normal 14-59 [facility] Comment on above: Performed By: #### C MP ####[facility] Txxmor[address] [place], [place] [address]Dr. Airam Tripathi Anion gap [Moles/Vol] 10.9 mmol/L Normal [facility] Comment on above: Performed By: #### C MP ####[facility] [address] [place], [place] [address]Dr. Airam Tripathi AST [Catalytic activity/Vol] 24 U/L Normal 15-37 [facility] Comment on above: Performed By: #### C MP ####[facility] Ilyrs[address] [place], [place] [address]Dr. Airam Tripathi Bilirubin [Mass/Vol] 0.3 mg/dL Normal 0.2-1.0 [facility] Comment on above: Performed By: #### C MP ####[facility] Qmudxcpwsv[address] [place], [place] [address]Dr. Airam Tripathi Calcium [Mass/Vol] 8.6 mg/dL Normal 8.5-10.1 [facility] Comment on above: Performed By: #### C MP ####[facility] Xldvfhsule[address] [place] [address]Dr. Airam Tripathi Chloride [Moles/Vol] 95 mmol/L Critically low 98-107 [facility] Comment on above: Performed By: #### C MP ####[facility] Glkbmaawep77[address] [place] [id number]. Airam Tripathi CO2 [Moles/Vol] 27.8 mmol/L Normal 21.0-32.0 [facility] Comment on above: Performed By: #### C MP ####[facility] Cvdyczqtru19[address] [place] [address]Dr. Airam Tripathi Creatinine [Mass/Vol] 1.07 mg/dL Critically high 0.55-1.02 [facility] Comment on above: Performed By: #### C MP ####[facility] Ctdurbeduc9[address] [place] [address]Dr. Airam Tripathi EGFR-AF GUAMANIAN >60 Normal >=60 [facility] Comment on above: Performed By: #### C MP ####[facility] Dsgfmspmtf216[address] [place] [address]Dr. Airam Deuce EGFR-NON AF GUAMANIAN 52 mL/min/1.73m2 Critically low >=60 [facility] Comment on above: Performed By: #### C MP ####[facility] Gnvy[address]ubq[address] [place] [address]Dr. Airam Tripathi Globulin (S) [Mass/Vol] 3.5 g/dL Normal [facility] Comment on above: Performed By: #### C MP ####[facility] Xnwltzxkip48[address] [place] [address]Dr. Airam Deuce Glucose [Mass/Vol] 86 mg/dL Normal 74-106 [facility] Comment on above: Performed By: #### C MP ####[facility] Sifwcxkegt70[address] [place] [id number]. Airam Tripathi Potassium [Moles/Vol] 4.7 mmol/L Normal 3.5-5.1 [facility] Comment on above: Performed By: #### C MP ####[facility] Hrjbnqwpek20[address] [place] [address]Dr. Airam Tripathi Protein [Mass/Vol] 6.7 g/dL Normal 6.4-8.2 [facility] Comment on above: Performed By: #### C MP ####[facility] Inrzuqfzui[address] [place] [address]Dr. Airam Tripathi Sodium [Moles/Vol] 129 mmol/L Critically low 136-145 [facility] Comment on above: Performed By: #### C MP ####[facility] Fozfdtjlda[address] [place], [place] [address]Dr. Selenaneil Deuce Urea nitrogen [Mass/Vol] 19.0 mg/dL Critically high 7.0-18.0 [facility] Comment on above: Performed By: #### C MP ####[facility] [address]af[address] [place], [place] [address]Dr. Airam Tripathi Urea nitrogen/Creatinine [Mass ratio] 17.8 mg/mg Normal [facility] Comment on above: Performed By: #### C MP ####[facility] Ukubv[address]rrn[address] [place], [place] [address]Dr. Airam Tripathi PROF CHEM 8 (BAS METB)on Anion gap [Moles/Vol] 9.0 mmol/L Normal [facility] Comment on above: Performed By: #### B HEADING MACHINE OPERATOR, BMP ####[facility] Udiywevjaf[address] [place], [place] [address]Dr. Airam Tripathi Calcium [Mass/Vol] 8.5 mg/dL Normal 8.5-10.1 [facility] Comment on above: Performed By: #### B HEADING MACHINE OPERATOR, BMP ####[facility] [address]lhc[address] [place], [place] [address]Dr. Airam Tripathi Chloride [Moles/Vol] 93 mmol/L Critically low 98-107 [facility] Comment on above: Performed By: #### B HEADING MACHINE OPERATOR, BMP ####[facility] Fmsrntwgte[address] [place], [place] [address]Dr. Airam Tripathi CO2 [Moles/Vol] 28.1 mmol/L Normal 21.0-32.0 [facility] Comment on above: Performed By: #### B HEADING MACHINE OPERATOR, BMP ####[facility] Sm[address]og[address] [place], [place] [address]Dr. Airam Tripathi Creatinine [Mass/Vol] 1.17 mg/dL Critically high 0.55-1.02 [facility] Comment on above: Performed By: #### B HEADING MACHINE OPERATOR, BMP ####[facility] Yujxpr[address] [place], [place] [address]Dr. Airam Tripathi EGFR-AF GUAMANIAN 57 mL/min/1.73m2 Critically low >=60 [facility] Comment on above: Performed By: #### B HEADING MACHINE OPERATOR, BMP ####[facility] Oveggitznl[address] [place], [place] [address]Dr. Airam Tripathi EGFR-NON AF GUAMANIAN 47 mL/min/1.73m2 Critically low >=60 [facility] Comment on above: Performed By: #### B HEADING MACHINE OPERATOR, BMP ####[facility] S[address] [place], [place] [address]Dr. Selenaneil Tripathi Glucose [Mass/Vol] 107 mg/dL Critically high 74-106 [facility] Comment on above: Performed By: #### B HEADING MACHINE OPERATOR, BMP ####[facility] Bzmqv[address] [place], [place] [address]Dr. Selenaneil Tripathi Potassium [Moles/Vol] 4.1 mmol/L Normal 3.5-5.1 [facility] Comment on above: Performed By: #### B HEADING MACHINE OPERATOR, BMP ####[facility] Oofkffxapx[address] [place], [place] [address]Dr. Airam Tripathi Sodium [Moles/Vol] 126 mmol/L Critically low 136-145 [facility] Comment on above: Performed By: #### B HEADING MACHINE OPERATOR, BMP ####[facility] Yxpobirbgw[address] [place], [place] [address]Dr. Airam Tripathi Urea nitrogen [Mass/Vol] 20.0 mg/dL Critically high 7.0-18.0 [facility] Comment on above: Performed By: #### B HEADING MACHINE OPERATOR, BMP ####[facility] Ldwe[address] [place], [place] [address]Dr. Selenaneil Tripathi Urea nitrogen/Creatinine [Mass ratio] 17.1 mg/mg Normal [facility] Comment on above: Performed By: #### B HEADING MACHINE OPERATOR, BMP ####[facility] [address] [place] [address]Pd. Airam Tripathi XR CHEST 1 Von 11-03-2022 XR CHEST 1 V Normal [facility] Activated partial thrombopla stin time (aPTT) in platelet poor plasma by coagulation aOrdered By: Favian Helm on 10-28-2022 aPTT Coag (PPP) [Time] 31.7 s 25.1-36.5 [facility] Alanine aminotransferase [En zymatic activity/volume] in Serum or PlasmaOrdered By: Favian Helm on 10-28-2022 ALT [Catalytic activity/Vol] 14 U/L 7-52 [facility] Albumin [Mass/volume] in Ser um or Plasma by Bromocresol green (BCG) dye binding methoOrdered By: Favian Helm on 10-28-2022 Albumin BCG dye [Mass/Vol] 3.6 g/dL 3.5-5.7 [facility] Alkaline phosphatase [Enzyma tic activity/volume] in Serum or PlasmaOrdered By: Favian Helm on 10-28-2022 ALP [Catalytic activity/Vol] 84 U/L 34-104 [facility] Aspartate aminotransferase [ Enzymatic activity/volume] in Serum or PlasmaOrdered By: Favian Helm on 10-28-2022 AST [Catalytic activity/Vol] 21 U/L 13-39 [facility] B-Type Natriuretic Peptideon 10-28-2022 Natriuretic peptide B (Bld) [Mass/Vol] 551.0 pg/mL High 5-100 [facility] Comment on above: Result Comment: PERF ORMED BY: [place] [address] PATHOLOGIST [employer] BUYER TANNER GAVIN M.D. Performed By: #### P T, CBC, PTT, CK, HS TROP, BNP, CMP, MG #### [address] Basophils Auto (Bld) [#/Vol] Ordered By: Favian Helm on 10-28-2022 Basophils (Bld) [#/Vol] 0.0 10*3/uL 0.0-0.2 [facility] Basophils/100 WBC Auto (Bld) Ordered By: Favian Helm on 10-28-2022 Basophils/100 WBC (Bld) 0.4 % . [facility] Bilirubin.total [Mass/volume ] in Serum or PlasmaOrdered By: Favian Helm on 10-28-2022 Bilirubin [Mass/Vol] 0.3 mg/dL 0.3-1.0 [facility] CT head/brain wo conon 10-28 CT head/brain wo con [facility] [place] [address] CT Scan Report Signed Patient: Mabel Moser MR#: [id number] : 1960 Acct:[id number] Age/Sex: 62 / F ADM Date: 10/28/22 Loc: ER Room: Type: [facility] ER Attending Dr: Copies to: Favian [...] Baljinder Ball M.D.10/28/2022 7:46 PM Dictation Location: [place] [address] Transcribed By: [facility] 10/28/221945 Dictated By: Baljinder Ball DO 10/28/221934 Signed By: 10/28/221945 Normal [facility] Calcium [Mass/volume] in Ser um or PlasmaOrdered By: Favian Helm on 10-28-2022 Calcium [Mass/Vol] 8.2 mg/dL 8.6-10.3 [facility] Carbon dioxide, total [Moles /volume] in Serum or PlasmaOrdered By: Favian Helm on 10-28-2022 CO2 [Moles/Vol] 25.7 mmol/L 21.0-31.0 [facility] Chloride [Moles/volume] in S andrea or PlasmaOrdered By: Favian Helm on 10-28-2022 Chloride [Moles/Vol] 98 mmol/L 98-107 [facility] Complete Blood Count Auto Di ffon 10-28-2022 Basophils (Bld) [#/Vol] 0.0 10*3/uL Normal 0.0-0.2 [facility] Comment on above: Result Comment: PERF ORMED BY: [place] [address] PATHOLOGIST [employer] BU[employer]ER TANNER GAVIN M.D. Performed By: #### P T, CBC, PTT, CK, HS TROP, BNP, CMP, MG #### [address] Basophils/100 WBC (Bld) 0.4 % Normal . [facility] Comment on above: Performed By: #### P T, CBC, PTT, CK, HS TROP, BNP, CMP, MG #### [address] Eosinophils (Bld) [#/Vol] 0.1 10*3/uL Normal 0.0-0.45 [facility] Comment on above: Performed By: #### P T, CBC, PTT, CK, HS TROP, BNP, CMP, MG #### [facility] [address] Eosinophils/100 WBC (Bld) 1.0 % Normal . [facility] Comment on above: Performed By: #### P T, CBC, PTT, CK, HS TROP, BNP, CMP, MG #### [address] Erythrocyte distribution width (RBC) [Ratio] 16.5 % High 11.9-15.3 [facility] Comment on above: Performed By: #### P T, CBC, PTT, CK, HS TROP, BNP, CMP, MG #### [address] Hematocrit (Bld) [Volume fraction] 29.9 % Low 34.0-46.4 [facility] Comment on above: Performed By: #### P T, CBC, PTT, CK, HS TROP, BNP, CMP, MG #### [address] Hemoglobin (Bld) [Mass/Vol] 9.6 g/dL Low 11.8-15.4 [facility] Comment on above: Performed By: #### P T, CBC, PTT, CK, HS TROP, BNP, CMP, MG #### [address] Lymphocytes (Bld) [#/Vol] 0.8 10*3/uL Low 1.00-4.8 [facility] Comment on above: Performed By: #### P T, CBC, PTT, CK, HS TROP, BNP, CMP, MG #### [address] Lymphocytes/100 WBC (Bld) 12.8 % Normal . [facility] Comment on above: Performed By: #### P T, CBC, PTT, CK, HS TROP, BNP, CMP, MG #### [address] MCH (RBC) [Entitic mass] 28.3 pg Normal 24.7-34.3 [facility] Comment on above: Performed By: #### P T, CBC, PTT, CK, HS TROP, BNP, CMP, MG #### [address] MCV (RBC) [Entitic vol] 88.3 fL Normal 80-100 [facility] Comment on above: Performed By: #### P T, CBC, PTT, CK, HS TROP, BNP, CMP, MG #### [address] Mean Corpuscular HGB Conc 32.0 g/dL Normal 32.0-35.0 [facility] Comment on above: Performed By: #### P T, CBC, PTT, CK, HS TROP, BNP, CMP, MG #### [address] Monocytes (Bld) [#/Vol] 0.2 10*3/uL Normal 0.0-0.8 [facility] Comment on above: Performed By: #### P T, CBC, PTT, CK, HS TROP, BNP, CMP, MG #### [address] Monocytes/100 WBC (Bld) 17.29 % Normal 0.00-20.00 [facility] Comment on above: Performed By: #### P T, CBC, PTT, CK, HS TROP, BNP, CMP, MG #### [address] Monocytes/100 WBC (Bld) 2.5 % Normal . [facility] Comment on above: Performed By: #### P T, CBC, PTT, CK, HS TROP, BNP, CMP, MG #### [address] Neutrophils (Bld) [#/Vol] 5.5 10*3/uL Normal 1.8-7.7 [facility] Comment on above: Performed By: #### P T, CBC, PTT, CK, HS TROP, BNP, CMP, MG #### [address] Neutrophils/100 WBC (Bld) 83.3 % Normal . [facility] Comment on above: Performed By: #### P T, CBC, PTT, CK, HS TROP, BNP, CMP, MG #### [address] NRBC% 0.0 /100{WBC} Normal 0-0.5 [facility] Comment on above: Performed By: #### P T, CBC, PTT, CK, HS TROP, BNP, CMP, MG #### [address] Platelet mean volume (Bld) [Entitic vol] 7.3 fL Normal 6.3-10.7 [facility] Comment on above: Performed By: #### P T, CBC, PTT, CK, HS TROP, BNP, CMP, MG #### [address] Platelets (Bld) [#/Vol] 260 10*3/uL Normal 150-450 [facility] Comment on above: Performed By: #### P T, CBC, PTT, CK, HS TROP, BNP, CMP, MG #### [address] RBC (Bld) [#/Vol] 3.38 10*6/uL Low 3.60-5.00 [facility] Comment on above: Performed By: #### P T, CBC, PTT, CK, HS TROP, BNP, CMP, MG #### [address] WBC (Bld) [#/Vol] 6.6 10*3/uL Normal 3.8-11.6 [facility] Comment on above: Performed By: #### P T, CBC, PTT, CK, HS TROP, BNP, CMP, MG #### [address] Comprehensive Metabolic Pane elena 10-28-2022 Albumin [Mass/Vol] 3.6 g/dL Normal 3.5-5.7 [facility] Comment on above: Performed By: #### P T, CBC, PTT, CK, HS TROP, BNP, CMP, MG #### [address] Albumin/Globulin [Mass ratio] 1.6 {ratio} Normal [facility] Comment on above: Performed By: #### P T, CBC, PTT, CK, HS TROP, BNP, CMP, MG #### [place] [id number] [place] ALP [Catalytic activity/Vol] 84 U/L Normal 34-104 [facility] Comment on above: Performed By: #### P T, CBC, PTT, CK, HS TROP, BNP, CMP, MG #### [address] ALT [Catalytic activity/Vol] 14 U/L Normal 7-52 [facility] Comment on above: Performed By: #### P T, CBC, PTT, CK, HS TROP, BNP, CMP, MG #### [address] Anion gap [Moles/Vol] 10.0 mmol/L Normal 6.0-15.0 [facility] Comment on above: Performed By: #### P T, CBC, PTT, CK, HS TROP, BNP, CMP, MG #### [address] AST [Catalytic activity/Vol] 21 U/L Normal 13-39 [facility] Comment on above: Performed By: #### P T, CBC, PTT, CK, HS TROP, BNP, CMP, MG #### [facility] [address] [place] [address] Bilirubin [Mass/Vol] 0.3 mg/dL Normal 0.3-1.0 [facility] Comment on above: Performed By: #### P T, CBC, PTT, CK, HS TROP, BNP, CMP, MG #### [facility] [address] [place] [address] Calcium [Mass/Vol] 8.2 mg/dL Low 8.6-10.3 [facility] Comment on above: Performed By: #### P T, CBC, PTT, CK, HS TROP, BNP, CMP, MG #### [address] Chloride [Moles/Vol] 98 mmol/L Normal 98-107 [facility] Comment on above: Performed By: #### P T, CBC, PTT, CK, HS TROP, BNP, CMP, MG #### [address] CO2 [Moles/Vol] 25.7 mmol/L Normal 21.0-31.0 [facility] Comment on above: Performed By: #### P T, CBC, PTT, CK, HS TROP, BNP, CMP, MG #### [address] Creatinine [Mass/Vol] 1.23 mg/dL High 0.60-1.20 [facility] Comment on above: Performed By: #### P T, CBC, PTT, CK, HS TROP, BNP, CMP, MG #### [address] Creatinine Clr Calc Pharmacy 48.79 [facility] Comment on above: Performed By: #### P T, CBC, PTT, CK, HS TROP, BNP, CMP, MG #### [address] GFR/1.73 sq M.predicted MDRD (S/P/Bld) [Vol rate/Area] 50.309 mL/min/{1.73_m2} [facility] Comment on above: Performed By: #### P T, CBC, PTT, CK, HS TROP, BNP, CMP, MG #### [address] Globulin (S) [Mass/Vol] 2.3 g/dL [facility] Comment on above: Performed By: #### P T, CBC, PTT, CK, HS TROP, BNP, CMP, MG #### [address] Glucose [Mass/Vol] 98 mg/dL Normal 70-100 [facility] Comment on above: Result Comment: [place] Glucose Reference Range is dependent on time and content of last meal. Glucose of more than 200 mg/dL in a nonstressed, ambulatory subject supports the diagnosis of Diabetes Mellitus. ADA recommended reference range Performed By: #### P T, CBC, PTT, CK, HS TROP, BNP, CMP, MG #### [address] Potassium [Moles/Vol] 4.7 mmol/L Normal 3.5-5.1 [facility] Comment on above: Performed By: #### P T, CBC, PTT, CK, HS TROP, BNP, CMP, MG #### [facility] [address] Protein [Mass/Vol] 5.9 g/dL Low 6.4-8.9 [facility] Comment on above: Performed By: #### P T, CBC, PTT, CK, HS TROP, BNP, CMP, MG #### [facility] [address] Sodium [Moles/Vol] 129 mmol/L Low 136-145 [facility] Comment on above: Performed By: #### P T, CBC, PTT, CK, HS TROP, BNP, CMP, MG #### [facility] [address] [place] [address] Urea nitrogen [Mass/Vol] 36 mg/dL High 01-17 [facility] Comment on above: Performed By: #### P T, CBC, PTT, CK, HS TROP, BNP, CMP, MG #### [facility] [address] [place] [address] Creatine Kinaseon 10-28-2022 CK [Catalytic activity/Vol] 45 U/L Normal [facility] Comment on above: Performed By: #### P T, CBC, PTT, CK, HS TROP, BNP, CMP, MG #### [address] Creatine kinase [Enzymatic a ctivity/volume] in Serum or PlasmaOrdered By: Favian Helm on 10-28-2022 CK [Catalytic activity/Vol] 45 U/L [facility] Creatinine [Mass/volume] in Serum or PlasmaOrdered By: Favian Helm on 10-28-2022 Creatinine [Mass/Vol] 1.23 mg/dL 0.60-1.20 [facility] ECG 12 lead ECGon 10-28-2022 ECG 12 lead ECG [facility] [place] [address] Electrocardiograph Report Signed Patient: Mabel Moser MR#: [id number] : 1960 Acct:[id number] Age/Sex: 62 / F ADM Date: 10/28/22 Loc: ER Room: Type: [facility] ER Attending Dr: Ordering Provider: Favian Helm [...] normal variant Confirmed by Chris MAURO DO ([id number]) on 10/28/2022 8:40:44 PM Referred By: Electronically Signed By:Chris MAURO DO Transcribed By: MUS Signed By Chris Mauro DO 0 10/28/222039 Normal [facility] Eosinophils Auto (Bld) [#/Vo l]Ordered By: Favian Helm on 10-28-2022 Eosinophils (Bld) [#/Vol] 0.1 10*3/uL 0.0-0.45 [facility] Eosinophils/100 WBC Auto (Bl d)Ordered By: Favian Helm on 10-28-2022 Eosinophils/100 WBC (Bld) 1.0 % . [facility] Erythrocyte distribution wid th Auto (RBC) [Ratio]Ordered By: Favian Helm on 10-28-2022 Erythrocyte distribution width (RBC) [Ratio] 16.5 % 11.9-15.3 [facility] Globulin Calc (S) [Mass/Vol] Ordered By: Favian Helm on 10-28-2022 Globulin (S) [Mass/Vol] 2.3 g/dL [facility] Glucose [Mass/volume] in Ser um or PlasmaOrdered By: Favian Helm on 10-28-2022 Glucose [Mass/Vol] 98 mg/dL 70-100 [facility] Comment on above: ADA recommended refe rence rangeRandom Glucose Reference Range is dependent on time and content of last meal. Glucose of more than 200 mg/dL in a nonstressed, ambulatory subject supports the diagnosis of Diabetes Mellitus. Hematocrit Auto (Bld) [Volum e fraction]Ordered By: Favian Helm on 10-28-2022 Hematocrit (Bld) [Volume fraction] 29.9 % 34.0-46.4 [facility] Hemoglobin [Mass/volume] in BloodOrdered By: Favian Helm on 10-28-2022 Hemoglobin (Bld) [Mass/Vol] 9.6 g/dL 11.8-15.4 [facility] Laboratory - CoagulationOrde red By: Favian Helm on 10-28-2022 PT Coag (PPP) [Time] 11.0 s 9.0-12.9 [facility] Leukocytes [#/volume] correc nicol for nucleated erythrocytes in Blood by Automated counOrdered By: Favian Helm on 10-28-2022 WBC corrected for nucl RBC Auto (Bld) [#/Vol] 6.6 10*3/uL 3.8-11.6 [facility] Lymphocytes Auto (Bld) [#/Vo l]Ordered By: Favian Helm on 10-28-2022 Lymphocytes (Bld) [#/Vol] 0.8 10*3/uL 1.00-4.8 [facility] Lymphocytes/100 WBC Auto (Bl d)Ordered By: Favian Helm on 10-28-2022 Lymphocytes/100 WBC (Bld) 12.8 % . [facility] MCH Auto (RBC) [Entitic mass ]Ordered By: Favian Helm on 10-28-2022 MCH (RBC) [Entitic mass] 28.3 pg 24.7-34.3 [facility] MCHC Auto (RBC) [Mass/Vol]Or dered By: Favian Helm on 10-28-2022 MCHC (RBC) [Mass/Vol] 32.0 g/dL 32.0-35.0 [facility] MCV Auto (RBC) [Entitic vol] Ordered By: Favian Helm on 10-28-2022 MCV (RBC) [Entitic vol] 88.3 fL 80-100 [facility] Magnesiumon 05-05-2023 Magnesium [Mass/Vol] 1.9 mg/dL Normal 1.9-2.7 [facility] Comment on above: Result Comment: PERF ORMED BY: [facility] [address] [place] [address] PATHOLOGIST F[employer] BUYER TANNER GAVIN M.D. Performed By: #### P T, CBC, PTT, CK, HS TROP, BNP, CMP, MG #### [facility] [address] Magnesium [Mass/volume] in S andrea or PlasmaOrdered By: Favian Helm on 10-28-2022 Magnesium [Mass/Vol] 1.9 mg/dL 1.9-2.7 [facility] Monocyte distribution width [Entitic volume] in Blood by AutomatedOrdered By: Favian Helm on 10-28-2022 Monocyte distribution width Auto (Bld) [Entitic vol] 17.29 % 0.00-20.00 [facility] Monocytes Auto (Bld) [#/Vol] Ordered By: Favian Helm on 10-28-2022 Monocytes (Bld) [#/Vol] 0.2 10*3/uL 0.0-0.8 [facility] Monocytes/100 WBC Auto (Bld) Ordered By: Favian Helm on 10-28-2022 Monocytes/100 WBC (Bld) 2.5 % . [facility] Natriuretic peptide B [Mass/ Vol]Ordered By: Favian Helm on 10-28-2022 Natriuretic peptide B (Bld) [Mass/Vol] 551.0 pg/mL 5-100 [facility] Neutrophils Auto (Bld) [#/Vo l]Ordered By: Favian Helm on 10-28-2022 Neutrophils (Bld) [#/Vol] 5.5 10*3/uL 1.8-7.7 [facility] Neutrophils/100 WBC Auto (Bl d)Ordered By: Favian Helm on 10-28-2022 Neutrophils/100 WBC (Bld) 83.3 % . [facility] No Panel InformationOrdered By: Favian Helm on 10-28-2022 Estimated GFR (CKD-EPI) 50.309 mL/Min [facility] Pharmacy Creatinine Clearance (Chem 48.79 [facility] Nucleated erythrocytes [Pres ence] in Blood by Automated countOrdered By: Favian Helm on 10-28-2022 Nucleated RBC Auto Ql (Bld) 0.0 /100{WBC} 0-0.5 [facility] Office Visiton 10-28-2022 Follow-up visit [id number] Loren Moser 1960 F Date Provider Department Center 10/28/2022 Nick-JOANA, RHIANNON CARD [facility] No family history on file Level of Service:16963 [place] OFFICE/OUTPATIENT ESTABLISHED MOD MDM 30-39 MIN Normal [facility] Partial Thromboplastin Timeo n 10-28-2022 aPTT Coag (Bld) [Time] 31.7 s Normal 25.1-36.5 [facility] Comment on above: Result Comment: PERF ORMED BY: [facility] [address] [place] [address] PATHOLOGIST [employer]ER TANNER GAVIN M.D. Performed By: #### P T, CBC, PTT, CK, HS TROP, BNP, CMP, MG #### [facility] [address] Platelet mean volume Auto (B ld) [Entitic vol]Ordered By: Favian Helm on 10-28-2022 Platelet mean volume (Bld) [Entitic vol] 7.3 fL 6.3-10.7 [facility] Platelet poor plasma interna tional normalized ratio (INR) by coagulation assay (relatOrdered By: Favian Helm on 10-28-2022 INR Coag (PPP) [Relative time] 1.0 {INR} [facility] Comment on above: INR Therapeutic Rang e [...] 05-05-2023 Platelets (Bld) [#/Vol] 260 10*3/uL 150-450 [facility] Potassium [Moles/volume] in Serum or PlasmaOrdered By: Favian Helm on 10-28-2022 Potassium [Moles/Vol] 4.7 mmol/L 3.5-5.1 [facility] Protein [Mass/volume] in Ser um or PlasmaOrdered By: Favian Helm on 10-28-2022 Protein [Mass/Vol] 5.9 g/dL 6.4-8.9 [facility] Prothrombin Time INRon 10-28 INR Coag (PPP) [Relative time] 1.0 {INR} Normal [facility] Comment on above: Result Comment: INR Therapeutic [...] CK, HS TROP, BNP, CMP, MG #### [facility] [address] PT Coag (PPP) [Time] 11.0 s Normal 9.0-12.9 [facility] Comment on above: Performed By: #### P T, CBC, PTT, CK, HS TROP, BNP, CMP, MG #### [facility] [address] RBC Auto (Bld) [#/Vol]Ordere d By: Favian Helm on 10-28-2022 RBC (Bld) [#/Vol] 3.38 10*6/uL 3.60-5.00 [facility] Serum or plasma albumin/glob ulin mass ratioOrdered By: Favian Helm on 10-28-2022 Albumin/Globulin [Mass ratio] 1.6 {ratio} [facility] Serum or plasma anion gap de terminationOrdered By: Favian Helm on 10-28-2022 Anion gap [Moles/Vol] 10.0 mmol/L 6.0-15.0 [facility] Sodium [Moles/volume] in Ser um or PlasmaOrdered By: Favian Helm on 10-28-2022 Sodium [Moles/Vol] 129 mmol/L 136-145 [facility] Troponin I High Sensitivityo n 10-28-2022 Troponin I High Sensitivity 5.8 pg/mL Normal 0.0-15.0 [facility] Comment on above: Result Comment: PERF ORMED BY: [place] [address] PATHOLOGIST [employer] BUYER TANNER GAVIN M.D. Performed By: #### P T, CBC, PTT, CK, HS TROP, BNP, CMP, MG #### [address] Troponin I.cardiac [Mass/vol ume] in Serum or Plasma by Detection limit <= 0.01 ng/Ordered By: Favian Helm on 10-28-2022 Troponin I.cardiac DL <= 0.01 ng/mL [Mass/Vol] 5.8 pg/mL 0.0-15.0 [facility] Urea nitrogen [Mass/volume] in Serum or PlasmaOrdered By: Favian Helm on 10-28-2022 Urea nitrogen [Mass/Vol] 36 mg/dL 7-25 [facility] WBC Auto (Bld) [#/Vol]Ordere d By: Favian Helm on 10-28-2022 WBC (Bld) [#/Vol] 6.6 10*3/uL 3.8-11.6 [facility] XR chest 2V*on 10-28-2022 XR chest 2V* [facility] [address] [place] [address] [place] [address] XRay Report Signed Patient: Mabel Moser MR#: [id number] : 1960 Acct:[id number] Age/Sex: 62 / F ADM Date: 10/28/22 Loc: ER Room: Type: [facility] ER Attending Dr: Copies to: Favian Helm PA-C Ordering Provider: Favian Helm PA-C Date of Service: 10/28/22 XR/XR chest 2V*: Shortness of Breath/Dyspnea Plain film chest 2 view HISTORY: Fluid overload. Shortness of breath. Headache. COMPARISON: 08/31/2018 FINDINGS: SUPPORT DEVICES: None POSTSURGICAL CHANGES: Right Uvorna-x-Apcr intact with tip overlying the distal SVC. HEART: Within normal limits PULMONARY RAI: Within normal limits MEDIASTINUM: Unremarkable LUNGS AND PLEURA: No acute lung process, pleural effusion or pneumothorax identified. BONY STRUCTURES: Intact ADDITIONAL FINDINGS None XR/XR chest 2V* IMPRESSION: No acute process. Impression dictated by: Baljinder Ball M.D.10/28/2022 7:50 PM Dictation Location: [place] [address] Transcribed By: [facility] 10/28/221949 Dictated By: Baljinder Ball DO 10/28/221945 Signed By: 10/28/221949 [facility] BNPon 10-26-2022 Natriuretic peptide B (Bld) [Mass/Vol] 2657.0 pg/mL Critically high <=900.0 [facility] Comment on above: Performed By: #### C MP, BNP ####[facility] [address] [place] [address]DrKianna Tripathi CBC AUTO DIFFon 10-26-2022 BASO # 0.0 103/ul Normal 0.0-0.1 [facility] Comment on above: Performed By: #### C BC ####[facility] [address] [place], [place] [address]Dr. Airam Tripathi Basophils/100 WBC (Bld) 0.5 % Normal 0.2-2.0 [facility] Comment on above: Performed By: #### C BC ####[facility] [address] [place] [address]DrKianna Tripathi EO # 0.3 103/ul Normal 0.0-0.7 [facility] Comment on above: Performed By: #### C BC ####[facility] [address] [place], [place] [address]Dr. Airam Tripathi Eosinophils/100 WBC (Bld) 4.8 % Normal 0.9-7.0 [facility] Comment on above: Performed By: #### C BC ####[facility] [address]wg[address]nk[address] [place] [address]Dr. Airam Tripathi Erythrocyte distribution width (RBC) [Ratio] 15.5 % Critically high 11.0-15.0 [facility] Comment on above: Performed By: #### C BC ####[facility] [address] [place], [place] [address]Dr. Airam Tripathi Hematocrit (Bld) [Volume fraction] 27.7 % Critically low 36.0-48.0 [facility] Comment on above: Performed By: #### C BC ####[facility] C[address]ze[address] [place], [place] [address]Dr. Airam Tripathi Hemoglobin (Bld) [Mass/Vol] 8.8 g/dL Critically low 12.0-16.0 [facility] Comment on above: Performed By: #### C BC ####[facility] Q[address]ckgkj[address] [place], [place] [address]Dr. Airam Tripathi IG # 0.03 10e3/ul Normal 0.00-0.03 [facility] Comment on above: Performed By: #### C BC ####[facility] Tabcbav[address] [place], [place] [address]Dr. Airam Tripathi IG % 0.5 % Normal 0.0-0.5 [facility] Comment on above: Performed By: #### C BC ####[facility] [address]um[address] [place], [place] [address]Dr. Airam Tripathi LYMPH # 1.6 103/ul Normal 1.2-3.8 [facility] Comment on above: Performed By: #### C BC ####[facility] K[address]sh[address]velf[address] [place], [place] [address]Dr. Airam Tripathi Lymphocytes/100 WBC (Bld) 25.5 % Normal 20.5-60.0 [facility] Comment on above: Performed By: #### C BC ####[facility] Qcnrkaplji[address] [place], [place] [address]Dr. Selenaneil Tripathi MANUAL DIFF REQ NO Normal [facility] Comment on above: Performed By: #### C BC ####[facility] [address] [place] [id number]. Airam Deuce MCH (RBC) [Entitic mass] 29.0 pg Normal 26.7-34.0 [facility] Comment on above: Performed By: #### C BC ####[facility] [address] [place] [id number]. Selenaneil Tripathi MCHC (RBC) [Mass/Vol] 31.8 g/dL Normal 29.9-35.2 [facility] Comment on above: Performed By: #### C BC ####[facility] [address] [place] [address]Dr. Airam Tripathi MCV (RBC) [Entitic vol] 91.4 fL Normal 81.0-99.0 [facility] Comment on above: Performed By: #### C BC ####[facility] K[address] [place], [place] [address]Dr. Airam Tripathi MONO # 0.5 103/ul Normal 0.3-0.8 [facility] Comment on above: Performed By: #### C BC ####[facility] We[address]cm[address] [place], [place] [address]Dr. Airam Tripathi Monocytes/100 WBC (Bld) 7.5 % Normal 1.7-12.0 [facility] Comment on above: Performed By: #### C BC ####[facility] [address] [place], [place] [address]Dr. Airam Tripathi NEUT # 3.9 103/ul Normal 1.4-6.5 [facility] Comment on above: Performed By: #### C BC ####[facility] [address] [place], [place] [address]DrKianna Tripathi Neutrophils/100 WBC (Bld) 61.2 % Normal 43.0-75.0 [facility] Comment on above: Performed By: #### C BC ####[facility] [address] [place], [place] [address]DrKianna Tripathi Platelet mean volume (Bld) [Entitic vol] 9.4 fL Critically low 9.5-13.5 [facility] Comment on above: Performed By: #### C BC ####[facility] [address] [place] [id number]. Airam Tripathi PLT 247 103/ul Normal 150-450 [facility] Comment on above: Performed By: #### C BC ####[facility] [address]carxrp[address] [place] [phone]. Airam Tripathi RBC 3.03 106/ul Critically low 4.20-5.40 [facility] Comment on above: Performed By: #### C BC ####[facility] [address] [place] [phone]. Airam Tripathi WBC 6.4 103/ul Normal 4.0-11.0 [facility] Comment on above: Performed By: #### C BC ####[facility] [address] [place] [address]Dr. Airam Tripathi PROF 14(COMP METB)on 023 Albumin [Mass/Vol] 2.5 g/dL Critically low 3.4-5.0 [facility] Comment on above: Performed By: #### C MP, BNP ####[facility] [address] [place] [address]Dr. Airam Tripathi Albumin/Globulin [Mass ratio] 0.9 {ratio} Normal [facility] Comment on above: Performed By: #### C MP, BNP ####[facility] X[address] [place] [address]Dr. Airam Tripathi ALP [Catalytic activity/Vol] 108 U/L Normal 46-116 [facility] Comment on above: Performed By: #### C MP, BNP ####[facility] Rut[address] [place] [address]Dr. Airam Tripathi ALT [Catalytic activity/Vol] 20 U/L Normal 14-59 [facility] Comment on above: Performed By: #### C MP, BNP ####[facility] Rrqhybusvt[address] [place] [phone]. Airam Tripathi Anion gap [Moles/Vol] 10.4 mmol/L Normal [facility] Comment on above: Performed By: #### C MP, BNP ####[facility] Fcowkqaxta[address] [place], [place] [address]Dr. Airam Deuce AST [Catalytic activity/Vol] 20 U/L Normal 15-37 [facility] Comment on above: Performed By: #### C MP, BNP ####[facility] Jxcuezol[address] [place], [place] [address]Dr. Airam Tripathi Bilirubin [Mass/Vol] 0.2 mg/dL Normal 0.2-1.0 [facility] Comment on above: Performed By: #### C MP, BNP ####[facility] Ickjstnber[address] [place], [place] [address]Dr. Airam Tripathi Calcium [Mass/Vol] 8.0 mg/dL Critically low 8.5-10.1 [facility] Comment on above: Performed By: #### C MP, BNP ####[facility] Hpezmcqhxp[address] [place], [place] [address]Dr. Airam Tripathi Chloride [Moles/Vol] 100 mmol/L Normal 98-107 [facility] Comment on above: Performed By: #### C MP, BNP ####[facility] [address] [place], [place] [address]Dr. Airam Tripathi CO2 [Moles/Vol] 28.6 mmol/L Normal 21.0-32.0 [facility] Comment on above: Performed By: #### C MP, BNP ####[facility] S[address]cymrbbt[address] [place], [place] [address]Dr. Airam Tripathi Creatinine [Mass/Vol] 1.66 mg/dL Critically high 0.55-1.02 [facility] Comment on above: Performed By: #### C MP, BNP ####[facility] Emlqselafb[address] [place], [place] [address]Dr. Airam Tripathi EGFR-AF GUAMANIAN 38 mL/min/1.73m2 Critically low >=60 [facility] Comment on above: Performed By: #### C MP, BNP ####[facility] Bofgywxjlv[address] [place], [place] [address]Dr. Airam Tripathi EGFR-NON AF GUAMANIAN 32 mL/min/1.73m2 Critically low >=60 [facility] Comment on above: Performed By: #### C MP, BNP ####[facility] [address] [place] [address]Dr. Airam Tripathi Globulin (S) [Mass/Vol] 2.8 g/dL Normal [facility] Comment on above: Performed By: #### C MP, BNP ####[facility] [address]umxwhuiq[address] [place] [address]Dr. Airam Tripathi Glucose [Mass/Vol] 102 mg/dL Normal 74-106 [facility] Comment on above: Performed By: #### C MP, BNP ####[facility] Yjpvdwwskj[address] [place], [place] [address]Dr. Airam Tripathi Potassium [Moles/Vol] 5.0 mmol/L Normal 3.5-5.1 [facility] Comment on above: Performed By: #### C MP, BNP ####[facility] Ivw[address]seeql[address] [place], [place] [address]Dr. Airam Tripathi Protein [Mass/Vol] 5.3 g/dL Critically low 6.4-8.2 [facility] Comment on above: Performed By: #### C MP, BNP ####[facility] [address]wqtafo[address] [place], [place] [address]Dr. Airam Tripathi Sodium [Moles/Vol] 134 mmol/L Critically low 136-145 [facility] Comment on above: Performed By: #### C MP, BNP ####[facility] Asuaygwqsr[address] [place], [place] [address]Dr. Airam Tripathi Urea nitrogen [Mass/Vol] 45.0 mg/dL Critically high 7.0-18.0 [facility] Comment on above: Performed By: #### C MP, BNP ####[facility] [address]umtrzosc[address] [place], [place] [address]Dr. Airam Tripathi Urea nitrogen/Creatinine [Mass ratio] 27.1 mg/mg Normal [facility] Comment on above: Performed By: #### C MP, BNP ####[facility] [address]qtftyr[address] [place] [address]Dr. Airam Tripathi BNPon 10-25-2022 Natriuretic peptide B (Bld) [Mass/Vol] 4569.0 pg/mL Critically high <=900.0 [facility] Comment on above: Performed By: #### C MP, BNP ####[facility] Aectrhgknk[address] [place], [place] [address]Dr. Airam Deuce CBC AUTO DIFFon 10-25-2022 BASO # 0.0 103/ul Normal 0.0-0.1 [facility] Comment on above: Performed By: #### C BC ####[facility] X[address]rtqfoe[address] [place], [place] [address]Dr. Airam Tripathi Basophils/100 WBC (Bld) 0.5 % Normal 0.2-2.0 [facility] Comment on above: Performed By: #### C BC ####[facility] Fllpamblny[address] [place], [place] [address]Dr. Airam Tripathi EO # 0.3 103/ul Normal 0.0-0.7 [facility] Comment on above: Performed By: #### C BC ####[facility] Anlw[address]zkvw[address] [place], [place] [address]Dr. Selenaneil Tripathi Eosinophils/100 WBC (Bld) 5.6 % Normal 0.9-7.0 [facility] Comment on above: Performed By: #### C BC ####[facility] Hwggatfeao[address] [place], [place] [address]Dr. Airam Tripathi Erythrocyte distribution width (RBC) [Ratio] 15.7 % Critically high 11.0-15.0 [facility] Comment on above: Performed By: #### C BC ####[facility] [address]pafqicn[address] [place], [place] [address]Dr. Airam Tripathi Hematocrit (Bld) [Volume fraction] 30.1 % Critically low 36.0-48.0 [facility] Comment on above: Performed By: #### C BC ####[facility] [address]my[address]yci[address] [place], [place] [address]Dr. Airam Tripathi Hemoglobin (Bld) [Mass/Vol] 9.2 g/dL Critically low 12.0-16.0 [facility] Comment on above: Performed By: #### C BC ####[facility] [address]wkc[address]inr[address] [place] [address]DrKianna Tripathi IG # 0.03 10e3/ul Normal 0.00-0.03 [facility] Comment on above: Performed By: #### C BC ####[facility] Jphwdxiwhu9902 [place] [address]DrKianna Tripathi IG % 0.5 % Normal 0.0-0.5 [facility] Comment on above: Performed By: #### C BC ####[facility] I[address]rlagtkhz[address] [place], [place] [address]DrKianna Tripathi LYMPH # 1.7 103/ul Normal 1.2-3.8 [facility] Comment on above: Performed By: #### C BC ####[facility] [address]rahbvfths[address] [place] [address]DrKianna Tripathi Lymphocytes/100 WBC (Bld) 28.9 % Normal 20.5-60.0 [facility] Comment on above: Performed By: #### C BC ####[facility] [address]risq[address] [place] [address]DrKianna Tripathi MANUAL DIFF REQ NO Normal [facility] Comment on above: Performed By: #### C BC ####[facility] Mykkirjsbp0915 [place] [address]DrKianna Tripathi MCH (RBC) [Entitic mass] 28.4 pg Normal 26.7-34.0 [facility] Comment on above: Performed By: #### C BC ####[facility] Z[address]ztqbfkwi0957 [place] [address]DrKianna Tripathi MCHC (RBC) [Mass/Vol] 30.6 g/dL Normal 29.9-35.2 [facility] Comment on above: Performed By: #### C BC ####[facility] [address]mtlcqhtzp9266 [place] [address]DrKianna Tripathi MCV (RBC) [Entitic vol] 92.9 fL Normal 81.0-99.0 [facility] Comment on above: Performed By: #### C BC ####[facility] P[address]zbcf[address] [place] [address]Dr. Airam Tripathi MONO # 0.5 103/ul Normal 0.3-0.8 [facility] Comment on above: Performed By: #### C BC ####[facility] Aozcutyaso[address] [place] [address]Dr. Airam Tripathi Monocytes/100 WBC (Bld) 8.5 % Normal 1.7-12.0 [facility] Comment on above: Performed By: #### C BC ####[facility] Mppymiepno[address] [place] [address]Dr. Airam Tripathi NEUT # 3.2 103/ul Normal 1.4-6.5 [facility] Comment on above: Performed By: #### C BC ####[facility] [address]weboqjn[address] [place], [place] [address]Dr. Airam Tripathi Neutrophils/100 WBC (Bld) 56.0 % Normal 43.0-75.0 [facility] Comment on above: Performed By: #### C BC ####[facility] Fduuhanqsl[address] [place] [address]Dr. Airam Tripathi Platelet mean volume (Bld) [Entitic vol] 9.4 fL Critically low 9.5-13.5 [facility] Comment on above: Performed By: #### C BC ####[facility] [address]cd[address] [place] [address]Dr. Airam Tripathi PLT 272 103/ul Normal 150-450 [facility] Comment on above: Performed By: #### C BC ####[facility] Hwertwfxui6[address] [place] [id number]. Airam Tripathi RBC 3.24 106/ul Critically low 4.20-5.40 [facility] Comment on above: Performed By: #### C BC ####[facility] Edwozkpkxq[address] [place] [address]Dr. Selenaneil Deuce WBC 5.8 103/ul Normal 4.0-11.0 [facility] Comment on above: Performed By: #### C BC ####[facility] Qdvzhrcejj[address] [place] [address]Dr. Airam Tripathi OSMOLALITYon 10-25-2022 Osmolality [Osmolality] 282 mosm/kg Normal 275-295 [facility] Comment on above: Performed By: #### O SMO ####[facility] Ahkcz[address]oztp[address] [place] [address]Dr. Airam Tripathi PROF 14(COMP METB)on 023 Albumin [Mass/Vol] 2.7 g/dL Critically low 3.4-5.0 [facility] Comment on above: Performed By: #### C MP, BNP ####[facility] [address]ol[address]ibltrx[address] [place], [place] [address]Dr. Airam Tripathi Albumin/Globulin [Mass ratio] 0.9 {ratio} Normal [facility] Comment on above: Performed By: #### C MP, BNP ####[facility] [address]zx[address]bxuz[address] [place], [place] [address]Dr. Airam Tripathi ALP [Catalytic activity/Vol] 122 U/L Critically high 46-116 [facility] Comment on above: Performed By: #### C MP, BNP ####[facility] Zosnkdmkur[address] [place], [place] [address]Dr. Airam Tripathi ALT [Catalytic activity/Vol] 23 U/L Normal 14-59 [facility] Comment on above: Performed By: #### C MP, BNP ####[facility] Wtdmjkxxdw9923 [place] [address]Dr. Airam Tripathi Anion gap [Moles/Vol] 10.5 mmol/L Normal [facility] Comment on above: Performed By: #### C MP, BNP ####[facility] Xmflcfpgps9812 [place] [address]Dr. Airam Tripathi AST [Catalytic activity/Vol] 22 U/L Normal 15-37 [facility] Comment on above: Performed By: #### C MP, BNP ####[facility] [address]kutqitm[address] [place], [place] [address]Dr. Airam Tripathi Bilirubin [Mass/Vol] 0.2 mg/dL Normal 0.2-1.0 [facility] Comment on above: Performed By: #### C MP, BNP ####[facility] Lxub[address]pbq[address] [place], [place] [address]Dr. Airam Tripathi Calcium [Mass/Vol] 8.3 mg/dL Critically low 8.5-10.1 [facility] Comment on above: Performed By: #### C MP, BNP ####[facility] Zypptaflxd[address] [place], [place] [address]Dr. Airam Tripathi Chloride [Moles/Vol] 102 mmol/L Normal 98-107 [facility] Comment on above: Performed By: #### C MP, BNP ####[facility] [address]oejnaoyvh[address] [place], [place] [address]Dr. Airam Tripathi CO2 [Moles/Vol] 29.7 mmol/L Normal 21.0-32.0 [facility] Comment on above: Performed By: #### C MP, BNP ####[facility] [address]xtrunbcza[address] [place], [place] [address]Dr. Airam Tripathi Creatinine [Mass/Vol] 1.31 mg/dL Critically high 0.55-1.02 [facility] Comment on above: Performed By: #### C MP, BNP ####[facility] [address]khkdblxj[address] [place], [place] [address]Dr. Airam Deuce EGFR-AF GUAMANIAN 50 mL/min/1.73m2 Critically low >=60 [facility] Comment on above: Performed By: #### C MP, BNP ####[facility] Zktzktqjfb[address] [place], [place] [address]Dr. Airam Deuce EGFR-NON AF GUAMANIAN 41 mL/min/1.73m2 Critically low >=60 [facility] Comment on above: Performed By: #### C MP, BNP ####[facility] [address]geaufzl[address] [place], [place] [address]Dr. Selenaneil Deuce Globulin (S) [Mass/Vol] 2.9 g/dL Normal [facility] Comment on above: Performed By: #### C MP, BNP ####[facility] Bbgonuuwip[address] [place] [address]Dr. Airam Tripathi Glucose [Mass/Vol] 94 mg/dL Normal 74-106 [facility] Comment on above: Performed By: #### C MP, BNP ####[facility] [address]of[address]wnpza[address] [place], [place] [address]Dr. Airam Tripathi Potassium [Moles/Vol] 4.2 mmol/L Normal 3.5-5.1 [facility] Comment on above: Performed By: #### C MP, BNP ####[facility] [address]pv[address] [place], [place] [address]Dr. Airam Tripathi Protein [Mass/Vol] 5.6 g/dL Critically low 6.4-8.2 [facility] Comment on above: Performed By: #### C MP, BNP ####[facility] [facility] [address] [place], [place] [address]Dr. Airam Tripathi Sodium [Moles/Vol] 138 mmol/L Normal 136-145 [facility] Comment on above: Performed By: #### C MP, BNP ####[facility] Lakshzsdlb[address] [place], [place] [address]Dr. Airam Tripathi Urea nitrogen [Mass/Vol] 33.0 mg/dL Critically high 7.0-18.0 [facility] Comment on above: Performed By: #### C MP, BNP ####[facility] Gqtnjsjzcs[address] [place], [place] [address]Dr. Airam Tripathi Urea nitrogen/Creatinine [Mass ratio] 25.2 mg/mg Normal [facility] Comment on above: Performed By: #### C MP, BNP ####[facility] Axxprwptfq[address] [place], [place] [address]Dr. Airam Tripathi BNPon 10-24-2022 Natriuretic peptide B (Bld) [Mass/Vol] 3805.0 pg/mL Critically high <=900.0 [facility] Comment on above: Performed By: #### H STROPN, BNP, CMP ####[facility] Gypluhoavk[address] [place], [place] [address]Dr. Airam Tripathi CBC AUTO DIFFon 10-24-2022 BASO # 0.0 103/ul Normal 0.0-0.1 [facility] Comment on above: Performed By: #### C BC ####[facility] Mtjarwcqxi[address] [place], [place] [address]Dr. Airam Tripathi Basophils/100 WBC (Bld) 0.3 % Normal 0.2-2.0 [facility] Comment on above: Performed By: #### C BC ####[facility] Bkawdjkvkx[address] [place], [place] [address]Dr. Airam Tripathi EO # 0.3 103/ul Normal 0.0-0.7 [facility] Comment on above: Performed By: #### C BC ####[facility] Xgujrhuejs[address] [place], [place] [address]Dr. Airam Tripathi Eosinophils/100 WBC (Bld) 4.2 % Normal 0.9-7.0 [facility] Comment on above: Performed By: #### C BC ####[facility] Kpqopjwhjh[address] [place], [place] [address]Dr. Airam Tripathi Erythrocyte distribution width (RBC) [Ratio] 15.6 % Critically high 11.0-15.0 [facility] Comment on above: Performed By: #### C BC ####[facility] Dzrxulohjh[address] [place], [place] [address]Dr. Airam Tripathi Hematocrit (Bld) [Volume fraction] 30.0 % Critically low 36.0-48.0 [facility] Comment on above: Performed By: #### C BC ####[facility] Cwmkdeepsh[address] [place], [place] [address]Dr. Airam Tripathi Hemoglobin (Bld) [Mass/Vol] 9.3 g/dL Critically low 12.0-16.0 [facility] Comment on above: Performed By: #### C BC ####[facility] Qqubcbnggg308[address] [place], [place] [address]Dr. Airam Tripathi IG # 0.03 10e3/ul Normal 0.00-0.03 [facility] Comment on above: Performed By: #### C BC ####[facility] Dsqfuglbnc4824[address] [place], [place] [address]Dr. Airam Tripathi IG % 0.5 % Normal 0.0-0.5 [facility] Comment on above: Performed By: #### C BC ####[facility] [address] [place] [address]DrKianna Airam Deuce LYMPH # 1.4 103/ul Normal 1.2-3.8 [facility] Comment on above: Performed By: #### C BC ####[facility] [address]vacxyt[address] [place] [address]DrKianna Selenaneil Tripathi Lymphocytes/100 WBC (Bld) 22.5 % Normal 20.5-60.0 [facility] Comment on above: Performed By: #### C BC ####[facility] Zizzfmkzih[address] [place], [place] [address]DrKianna Selenaneil Tripathi MANUAL DIFF REQ NO Normal [facility] Comment on above: Performed By: #### C BC ####[facility] Iderlnvxgh338[address] [place], [place] [address]DrKianna Airam Deuce MCH (RBC) [Entitic mass] 28.7 pg Normal 26.7-34.0 [facility] Comment on above: Performed By: #### C BC ####[facility] Jhbrhwmxvz[address] [place], [place] [address]Dr. Airam Deuce MCHC (RBC) [Mass/Vol] 31.0 g/dL Normal 29.9-35.2 [facility] Comment on above: Performed By: #### C BC ####[facility] Higvopkscv8[address] [place], [place] [address]DrKianna Airam Deuce MCV (RBC) [Entitic vol] 92.6 fL Normal 81.0-99.0 [facility] Comment on above: Performed By: #### C BC ####[facility] Pnykijieva[address] [place], [place] [address]DrKianna Tripathi MONO # 0.4 103/ul Normal 0.3-0.8 [facility] Comment on above: Performed By: #### C BC ####[facility] Ofkzjbragy[address] [place], [place] [address]DrKianna Selenaneil Tripathi Monocytes/100 WBC (Bld) 7.3 % Normal 1.7-12.0 [facility] Comment on above: Performed By: #### C BC ####[facility] I[address]kerky[address] [place] [address]Dr. Airam Tripathi NEUT # 3.9 103/ul Normal 1.4-6.5 [facility] Comment on above: Performed By: #### C BC ####[facility] Irdorfpjxl27[address] [place] [address]Dr. Airam Tripathi Neutrophils/100 WBC (Bld) 65.2 % Normal 43.0-75.0 [facility] Comment on above: Performed By: #### C BC ####[facility] Ncrizxsp[address] [place] [address]Dr. Airam Deuce Platelet mean volume (Bld) [Entitic vol] 9.0 fL Critically low 9.5-13.5 [facility] Comment on above: Performed By: #### C BC ####[facility] Djrjxicczg[address] [place], [place] [address]Dr. Airam Tripathi PLT 247 103/ul Normal 150-450 [facility] Comment on above: Performed By: #### C BC ####[facility] Lqqqpoddhp9[address] [place], [place] [address]Dr. Airam Deuce RBC 3.24 106/ul Critically low 4.20-5.40 [facility] Comment on above: Performed By: #### C BC ####[facility] Etapdqcrjn[address] [place], [place] [address]Dr. Airam Tripathi WBC 6.0 103/ul Normal 4.0-11.0 [facility] Comment on above: Performed By: #### C BC ####[facility] Hmbut[address]wobq[address] [place], [place] [id number]. Airam Tripathi CULTURE URINEon 10-24-2022 CULTURE URINE Culture Observations : LIGHT GROWTH OF MIXED GENITAL GREGORY. NO POTENTIAL PATHOGENS SEEN. Normal [facility] Comment on above: Performed By: #### U RCX ####[facility] Wjyswimgcx[address] [place], [place] [address]Dr. Airam Tripathi POINT OF CARE GLUCOSEon 05-0 Glucose [Mass/Vol] 118 mg/dL Critically high 74-106 [facility] Comment on above: Performed By: #### P OCGLUC ####[facility] [address]wo[address] [place] [address]Dr. Airam Tripathi PROF 14(COMP METB)on 023 Albumin [Mass/Vol] 3.1 g/dL Critically low 3.4-5.0 [facility] Comment on above: Performed By: #### H STROPN, BNP, CMP ####[facility] Sfsrwuqqvw8[address] [place] [address]Dr. Airam Tripathi Albumin/Globulin [Mass ratio] 1.0 {ratio} Normal [facility] Comment on above: Performed By: #### H STROPN, BNP, CMP ####[facility] [address]qu[address] [place] [address]Dr. Airam Tripathi ALP [Catalytic activity/Vol] 131 U/L Critically high 46-116 [facility] Comment on above: Performed By: #### H STROPN, BNP, CMP ####[facility] Pvnix[address]jvzr[address] [place] [address]Dr. Airam Tripathi ALT [Catalytic activity/Vol] 26 U/L Normal 14-59 [facility] Comment on above: Performed By: #### H STROPN, BNP, CMP ####[facility] [address]ard[address]irl[address] [place] [address]Dr. Airam Tripathi Anion gap [Moles/Vol] 11.2 mmol/L Normal [facility] Comment on above: Performed By: #### H STROPN, BNP, CMP ####[facility] Eyvytuibmg475[address] [place] [address]Dr. Airam Tripathi AST [Catalytic activity/Vol] 31 U/L Normal 15-37 [facility] Comment on above: Performed By: #### H STROPN, BNP, CMP ####[facility] Mhrvmtqpgt26[address] [place] [address]Dr. Airam Tripathi Bilirubin [Mass/Vol] 0.2 mg/dL Normal 0.2-1.0 [facility] Comment on above: Performed By: #### H STROPN, BNP, CMP ####[facility] [address]pqlszsc[address] [place] [address]Dr. Airam Tripathi Calcium [Mass/Vol] 8.6 mg/dL Normal 8.5-10.1 [facility] Comment on above: Performed By: #### H STROPN, BNP, CMP ####[facility] Uecqxrfzzl[address] [place] [address]Dr. Airam Tripathi Chloride [Moles/Vol] 102 mmol/L Normal 98-107 [facility] Comment on above: Performed By: #### H STROPN, BNP, CMP ####[facility] [address] [place] [address]Dr. Airam Tripathi CO2 [Moles/Vol] 27.4 mmol/L Normal 21.0-32.0 [facility] Comment on above: Performed By: #### H STROPN, BNP, CMP ####[facility] Zkzunmilve[address] [place], [place] [address]Dr. Airam Tripathi Creatinine [Mass/Vol] 1.23 mg/dL Critically high 0.55-1.02 [facility] Comment on above: Performed By: #### H STROPN, BNP, CMP ####[facility] Rniwtpieqp[address] [place], [place] [address]Dr. Airam Tripathi EGFR-AF GUAMANIAN 54 mL/min/1.73m2 Critically low >=60 [facility] Comment on above: Performed By: #### H STROPN, BNP, CMP ####[facility] Glnudknags[address] [place], [place] [address]Dr. Airam Tripathi EGFR-NON AF GUAMANIAN 45 mL/min/1.73m2 Critically low >=60 [facility] Comment on above: Performed By: #### H STROPN, BNP, CMP ####[facility] Wsjoathink[address] [place], [place] [address]Dr. Airam Tripathi Globulin (S) [Mass/Vol] 3.1 g/dL Normal [facility] Comment on above: Performed By: #### H STROPN, BNP, CMP ####[facility] Mjmclfzuvg6[address] [place] [address]Dr. Airam Tripathi Glucose [Mass/Vol] 90 mg/dL Normal 74-106 [facility] Comment on above: Performed By: #### H STROPN, BNP, CMP ####[facility] Hftatbjyvu[address] [place] [address]Dr. Airam Tripathi Potassium [Moles/Vol] 5.6 mmol/L Critically high 3.5-5.1 [facility] Comment on above: Performed By: #### H STROPN, BNP, CMP ####[facility] Fqbsbruxdr4[address] [place] [address]Dr. Airam Tripathi Protein [Mass/Vol] 6.2 g/dL Critically low 6.4-8.2 [facility] Comment on above: Performed By: #### H STROPN, BNP, CMP ####[facility] Hnbmozjedo[address] [place], [place] [address]Dr. Airam Tripathi Sodium [Moles/Vol] 135 mmol/L Critically low 136-145 [facility] Comment on above: Performed By: #### H STROPN, BNP, CMP ####[facility] Tloijxsqod[address] [place] [address]Dr. Airam Tripathi Urea nitrogen [Mass/Vol] 38.0 mg/dL Critically high 7.0-18.0 [facility] Comment on above: Performed By: #### H STROPN, BNP, CMP ####[facility] Bmtmetrgqj37[address] [place] [address]Dr. Airam Tripathi Urea nitrogen/Creatinine [Mass ratio] 30.9 mg/mg Normal [facility] Comment on above: Performed By: #### H STROPN, BNP, CMP ####[facility] Btwxeijigm[address] [place], [place] [address]Dr. Airam Tripathi TROPONIN, HIGH SENSITIVITYon 10-24-2022 HSTROP 8.0 pg/mL Normal 4.0-51.3 [facility] Comment on above: Result Comment: CUT- OFF POINTS HAVE BEEN ESTABLISHED BASED ON THE FOURTH UNIVERSAL DEFINITIONS OF MYOCARDIALINFARCTION. THE UPPER REFERENCE LIMIT (URL) OF TROPONIN, DEFINED THE 99TH PERCENTILE OFcTnI DISTRIBUTION IN A REFERENCE POPULATION, HAS BEEN CONFIRMED THE DECISION THRESHOLDFOR AK DIAGNOSIS. Performed By: #### H STROPN, BNP, CMP ####[facility] Qdjxyiirun[address] [place], [place] [address]Dr. Airam Tripathi UA RANDOM W/MICROSCOPICon BACTERIA NONE SEEN Normal NONE SEEN [facility] Comment on above: Performed By: #### U AMIC ####[facility] Gtaxxuojbq[address] [place], [place] [address]Dr. Airam Tripathi Bilirubin Ql (U) Negative Normal NEGATIVE [facility] Comment on above: Performed By: #### U AMIC ####[facility] Ykobscwrau[address] [place], [place] [address]Dr. Airam Tripathi CAST NONE SEEN Normal NONE SEEN [facility] Comment on above: Performed By: #### U AMIC ####[facility] Whzkoefefi[address] [place], [place] [address]Dr. Airam Tripathi Clarity (U) CLEAR Normal CLEAR [facility] Comment on above: Performed By: #### U AMIC ####[facility] Ovaubjxnro[address] [place], [place] [address]Dr. Airam Tripathi Color (U) LT. YELLOW Normal YELLOW [facility] Comment on above: Performed By: #### U AMIC ####[facility] Qkgaahffrz[address] [place], [place] [address]Dr. Airam Tripathi Crystals LM Nom (Urine sed) NONE SEEN Normal NONE SEEN [facility] Comment on above: Performed By: #### U AMIC ####[facility] Qvognazwmf[address] [place], [place] [address]Dr. Airam Tripathi Epithelial cells LM Ql (Urine sed) RARE Normal NONE SEEN /RARE [facility] Comment on above: Performed By: #### U AMIC ####[facility] Wlyvyquwjs[address] [place], [place] [address]Dr. Airam Tripathi Glucose Ql (U) Negative Normal NEGATIVE [facility] Comment on above: Performed By: #### U AMIC ####[facility] Huachdfvxi[address] [place], [place] [address]Dr. Airam Tripathi Hemoglobin Ql (U) Negative Normal NEGATIVE [facility] Comment on above: Performed By: #### U AMIC ####[facility] Iipgwzkmfq[address] [place], [place] [address]Dr. Airam Tripathi Ketones Ql (U) Negative Normal NEGATIVE [facility] Comment on above: Performed By: #### U AMIC ####[facility] Ixumkdczsg409[address] [place], [place] [address]Dr. Airam Tripathi LEUKOCYTES Negative Normal NEGATIVE [facility] Comment on above: Performed By: #### U AMIC ####[facility] Jrhllpwjpf[address] [place], [place] [address]Dr. Airam Tripathi MUCOUS NONE SEEN Normal NONE SEEN [facility] Comment on above: Performed By: #### U AMIC ####[facility] Ssfhacnreu[address] [place], [place] [address]Dr. Airam Tripathi Nitrite Ql (U) Negative Normal NEGATIVE [facility] Comment on above: Performed By: #### U AMIC ####[facility] Borkxigdhm9[address] [place], [place] [address]Dr. Airam Tripathi pH (U) 7.0 [pH] Normal 5-9 [facility] Comment on above: Performed By: #### U AMIC ####[facility] Zgxzzryjgj8[address] [place], [place] [address]Dr. Airam Deuce RBC 0-2 Normal 0-2 [facility] Comment on above: Performed By: #### U AMIC ####[facility] Pawkmetavn[address] [place], [place] [address]Dr. Airam Tripathi SPEC GRAVITY 1.015 Normal 1.005-<=1. 025 [facility] Comment on above: Performed By: #### U AMIC ####[facility] Cseeoqmhxg236[address] [place], [place] [address]Dr. Airam Tripathi UA PROTEIN Negative Normal NEGATIVE/ TRACE [facility] Comment on above: Performed By: #### U AMIC ####[facility] Hcybqhialj[address] [place], [place] [address]Dr. Airam Tripathi Urobilinogen Qn (U) 0.2 {Ligia'U}/dL Normal 0.2 - 1. 0 [facility] Comment on above: Performed By: #### U AMIC ####[facility] T[address]wrb[address] [place] [address]Dr. Airam Tripathi WBC NONE SEEN Normal NONE SEEN [facility] Comment on above: Performed By: #### U AMIC ####[facility] Xxefyed[address] [place] [address]Dr. Airam Tripathi XR CHEST 1 Von 10-24-2022 XR CHEST 1 V Normal [facility] CBC AUTO DIFFon 10-19-2022 BASO # 0.0 103/ul Normal 0.0-0.1 [facility] Comment on above: Performed By: #### C BC ####[facility] Gfczobfevo[address] [place], [place] [address]Dr. Airam Trpiathi Basophils/100 WBC (Bld) 0.5 % Normal 0.2-2.0 [facility] Comment on above: Performed By: #### C BC ####[facility] Fqpbnucuok[address] [place], [place] [address]Dr. Airam Tripathi EO # 0.3 103/ul Normal 0.0-0.7 [facility] Comment on above: Performed By: #### C BC ####[facility] Pagmeeqmds[address] [place], [place] [address]Dr. Airam Tripathi Eosinophils/100 WBC (Bld) 3.3 % Normal 0.9-7.0 [facility] Comment on above: Performed By: #### C BC ####[facility] Hnjmhxanhb[address] [place], [place] [address]Dr. Airam Tripathi Erythrocyte distribution width (RBC) [Ratio] 15.0 % Normal 11.0-15.0 [facility] Comment on above: Performed By: #### C BC ####[facility] Buonwtanrv[address] [place], [place] [address]Dr. Airam Tripathi Hematocrit (Bld) [Volume fraction] 32.9 % Critically low 36.0-48.0 [facility] Comment on above: Performed By: #### C BC ####[facility] Drvynyyaqt8[address] [place] [id number]. Airam Tripathi Hemoglobin (Bld) [Mass/Vol] 10.1 g/dL Critically low 12.0-16.0 [facility] Comment on above: Performed By: #### C BC ####[facility] Nxdokrbcjq1705 [place] [id number]. Airam Tripathi IG # 0.04 10e3/ul Critically high 0.00-0.03 [facility] Comment on above: Performed By: #### C BC ####[facility] Jjsdijjptj22[address] [place] [address]Dr. Airam Tripathi IG % 0.5 % Normal 0.0-0.5 [facility] Comment on above: Performed By: #### C BC ####[facility] Cgungqjibq65[address] [place] [address]Dr. Airam Tripathi LYMPH # 1.5 103/ul Normal 1.2-3.8 [facility] Comment on above: Performed By: #### C BC ####[facility] Qchmecsmtt08[address] [place] [address]Dr. Airam Tripathi Lymphocytes/100 WBC (Bld) 18.1 % Critically low 20.5-60.0 [facility] Comment on above: Performed By: #### C BC ####[facility] Xvwekhynsl[address] [place] [address]Dr. Airam Tripathi MANUAL DIFF REQ NO Normal [facility] Comment on above: Performed By: #### C BC ####[facility] Fqsdnqfpdu6575 [place] [address]Dr. Airam Tripathi MCH (RBC) [Entitic mass] 28.3 pg Normal 26.7-34.0 [facility] Comment on above: Performed By: #### C BC ####[facility] Bhluoxtnop364[address] [place], [place] [address]Dr. Airam Tripathi MCHC (RBC) [Mass/Vol] 30.7 g/dL Normal 29.9-35.2 [facility] Comment on above: Performed By: #### C BC ####[facility] [address] [place] [address]Um. Airam Tripathi MCV (RBC) [Entitic vol] 92.2 fL Normal 81.0-99.0 [facility] Comment on above: Performed By: #### C BC ####[facility] Skqrfcfsdv3234 [place] [id number]. Airam Tripathi MONO # 0.7 103/ul Normal 0.3-0.8 [facility] Comment on above: Performed By: #### C BC ####[facility] Grbisvtnid[address] [place] [address]Dr. Airam Deuce Monocytes/100 WBC (Bld) 7.7 % Normal 1.7-12.0 [facility] Comment on above: Performed By: #### C BC ####[facility] Izsetlrsdp8[address] [place], [place] [address]Dr. Airam Tripathi NEUT # 5.9 103/ul Normal 1.4-6.5 [facility] Comment on above: Performed By: #### C BC ####[facility] Fiyuqzduwc[address] [place], [place] [address]Dr. Airam Deuce Neutrophils/100 WBC (Bld) 69.9 % Normal 43.0-75.0 [facility] Comment on above: Performed By: #### C BC ####[facility] Tljhewuawv[address] [place], [place] [address]Dr. Airam Deuce Platelet mean volume (Bld) [Entitic vol] 9.3 fL Critically low 9.5-13.5 [facility] Comment on above: Performed By: #### C BC ####[facility] Xdpovxwhpo394[address] [place], [place] [address]Dr. Airam Deuce PLT 293 103/ul Normal 150-450 [facility] Comment on above: Performed By: #### C BC ####[facility] Zmxeeuiwzj[address] [place], [place] [id number]. Airam Deuce RBC 3.57 106/ul Critically low 4.20-5.40 [facility] Comment on above: Performed By: #### C BC ####[facility] [address]os[address]dulb[address] [place], [place] [id number]. Airam Tripathi WBC 8.4 103/ul Normal 4.0-11.0 [facility] Comment on above: Performed By: #### C BC ####[facility] Gwgnxiveso49[address] [place] [address]DrKianna Tripathi PROF 14(COMP METB)on 023 Albumin [Mass/Vol] 3.1 g/dL Critically low 3.4-5.0 [facility] Comment on above: Performed By: #### C MP ####[facility] Hmymrkcess45[address] [place] [address]Dr. Airam Tripathi Albumin/Globulin [Mass ratio] 0.9 {ratio} Normal [facility] Comment on above: Performed By: #### C MP ####[facility] Sjxuvvntjq[address] [place], [place] [address]Dr. Airam Tripathi ALP [Catalytic activity/Vol] 117 U/L Critically high 46-116 [facility] Comment on above: Performed By: #### C MP ####[facility] Azxzkyoqky[address] [place], [place] [address]Dr. Airam Tripathi ALT [Catalytic activity/Vol] 24 U/L Normal 14-59 [facility] Comment on above: Performed By: #### C MP ####[facility] Jjuzsxlywz119[address] [place], [place] [address]Dr. Airam Tripathi Anion gap [Moles/Vol] 11.1 mmol/L Normal [facility] Comment on above: Performed By: #### C MP ####[facility] Cvwxzbobnv[address] [place], [place] [address]Dr. Airam Tripathi AST [Catalytic activity/Vol] 22 U/L Normal 15-37 [facility] Comment on above: Performed By: #### C MP ####[facility] Tprwhgnduc[address] [place], [place] [address]Dr. Airam Tripathi Bilirubin [Mass/Vol] 0.2 mg/dL Normal 0.2-1.0 [facility] Comment on above: Performed By: #### C MP ####[facility] Xyfqhciphs[address] [place], [place] [address]Dr. Airam Tripathi Calcium [Mass/Vol] 8.4 mg/dL Critically low 8.5-10.1 [facility] Comment on above: Performed By: #### C MP ####[facility] Wfwpiymvpm[address] [place], [place] [address]Dr. Airam Tripathi Chloride [Moles/Vol] 103 mmol/L Normal 98-107 [facility] Comment on above: Performed By: #### C MP ####[facility] Jonhucyspt[address] [place], [place] [address]Dr. Airam Tripathi CO2 [Moles/Vol] 25.0 mmol/L Normal 21.0-32.0 [facility] Comment on above: Performed By: #### C MP ####[facility] [address]fpnwzvz[address] [place], [place] [address]Dr. Airam Tripathi Creatinine [Mass/Vol] 1.27 mg/dL Critically high 0.55-1.02 [facility] Comment on above: Performed By: #### C MP ####[facility] Mbzttklulf[address] [place], [place] [address]Dr. Airam Tripathi EGFR-AF GUAMANIAN 52 mL/min/1.73m2 Critically low >=60 [facility] Comment on above: Performed By: #### C MP ####[facility] L[address]jeudia[address] [place], [place] [address]Dr. Airam Tripathi EGFR-NON AF GUAMANIAN 43 mL/min/1.73m2 Critically low >=60 [facility] Comment on above: Performed By: #### C MP ####[facility] Dwydligkvp[address] [place], [place] [address]Dr. Airam Tripathi Globulin (S) [Mass/Vol] 3.3 g/dL Normal [facility] Comment on above: Performed By: #### C MP ####[facility] Owrlqvtilt[address] [place], [place] [address]Dr. Airam Tripathi Glucose [Mass/Vol] 90 mg/dL Normal 74-106 [facility] Comment on above: Performed By: #### C MP ####[facility] Hseyeqdrmf[address] [place], [place] [address]Dr. Airam Tripathi Potassium [Moles/Vol] 5.1 mmol/L Normal 3.5-5.1 [facility] Comment on above: Performed By: #### C MP ####[facility] [address] [place] [address]Dr. Airam Tripathi Protein [Mass/Vol] 6.4 g/dL Normal 6.4-8.2 [facility] Comment on above: Performed By: #### C MP ####[facility] Zjstncuzvw[address] [place] [address]Dr. Airam Tripathi Sodium [Moles/Vol] 134 mmol/L Critically low 136-145 [facility] Comment on above: Performed By: #### C MP ####[facility] Dikbmcyhdm[address] [place], [place] [address]Dr. Airam Tripathi Urea nitrogen [Mass/Vol] 33.0 mg/dL Critically high 7.0-18.0 [facility] Comment on above: Performed By: #### C MP ####[facility] Teeirqnxnh[address] [place], [place] [address]Dr. Airam Tripathi Urea nitrogen/Creatinine [Mass ratio] 26.0 mg/mg Normal [facility] Comment on above: Performed By: #### C MP ####[facility] Nyuytevysg[address] [place], [place] [address]Dr. Airam Tripathi OSMOLALITYon 10-15-2022 Osmolality [Osmolality] 272 mosm/kg Critically low 275-295 [facility] Comment on above: Performed By: #### O SMO ####[facility] Kgzfqbwiki[address] [place], [place] [address]Dr. Airam Tripathi 36on 10-12-2022 36 Can you get the henry ining labs please Normal [facility] 36 [facility] lab called to re port critical BNP of 1,337. FYI Normal [facility] BNPon 10-12-2022 Natriuretic peptide B (Bld) [Mass/Vol] 1337.0 pg/mL Critically high <=900.0 [facility] Comment on above: Performed By: #### B HEADING MACHINE OPERATOR ####[facility] Xvmnyccedb[address] [place] [address]Dr. Airam Tripathi CBC AUTO DIFFon 10-12-2022 BASO # 0.0 103/ul Normal 0.0-0.1 [facility] Comment on above: Performed By: #### C BC ####[facility] Lfysxmxxzh[address] [place], [place] [address]Dr. Airam Tripathi Basophils/100 WBC (Bld) 0.6 % Normal 0.2-2.0 [facility] Comment on above: Performed By: #### C BC ####[facility] Tldaqzsmit[address] [place], [place] [address]Dr. Airam Tripathi EO # 0.2 103/ul Normal 0.0-0.7 [facility] Comment on above: Performed By: #### C BC ####[facility] Iikfmpklki[address] [place], [place] [address]Dr. Selenaneil Tripathi Eosinophils/100 WBC (Bld) 2.3 % Normal 0.9-7.0 [facility] Comment on above: Performed By: #### C BC ####[facility] Hoqqplcrwd[address] [place], [place] [address]Dr. Airam Tripathi Erythrocyte distribution width (RBC) [Ratio] 15.1 % Critically high 11.0-15.0 [facility] Comment on above: Performed By: #### C BC ####[facility] Lshfzbutmh[address] [place], [place] [address]Dr. Airam Tripathi Hematocrit (Bld) [Volume fraction] 35.9 % Critically low 36.0-48.0 [facility] Comment on above: Performed By: #### C BC ####[facility] Opzgeswpom[address] [place], [place] [address]Dr. Selenaneil Tripathi Hemoglobin (Bld) [Mass/Vol] 11.4 g/dL Critically low 12.0-16.0 [facility] Comment on above: Performed By: #### C BC ####[facility] Omzjevucew[address] [place], [place] [address]Dr. Airam Tripathi IG # 0.03 10e3/ul Normal 0.00-0.03 [facility] Comment on above: Performed By: #### C BC ####[facility] [address]wil[address] [place] [id number]. Airam Tripathi IG % 0.5 % Normal 0.0-0.5 [facility] Comment on above: Performed By: #### C BC ####[facility] Pyteukvtkp9154 [place] [phone]. Airam Tripathi LYMPH # 1.1 103/ul Critically low 1.2-3.8 [facility] Comment on above: Performed By: #### C BC ####[facility] Yiaijgqank[address] [place] [phone]. Airam Tripathi Lymphocytes/100 WBC (Bld) 17.2 % Critically low 20.5-60.0 [facility] Comment on above: Performed By: #### C BC ####[facility] Ffqnadztrj[address] [place] [address]Dr. Airam Tripathi MANUAL DIFF REQ NO Normal [facility] Comment on above: Performed By: #### C BC ####[facility] Mo[address] [place], [place] [id number]. Airam Tripathi MCH (RBC) [Entitic mass] 28.8 pg Normal 26.7-34.0 [facility] Comment on above: Performed By: #### C BC ####[facility] Otowtwdxrj11[address] [place] [phone]. Airam Tripathi MCHC (RBC) [Mass/Vol] 31.8 g/dL Normal 29.9-35.2 [facility] Comment on above: Performed By: #### C BC ####[facility] S[address]teypbfnm[address] [place] [phone]. Airam Tripathi MCV (RBC) [Entitic vol] 90.7 fL Normal 81.0-99.0 [facility] Comment on above: Performed By: #### C BC ####[facility] Svljohftya8[address] [place] [phone]. Airam Deuce MONO # 0.5 103/ul Normal 0.3-0.8 [facility] Comment on above: Performed By: #### C BC ####[facility] Xujftxeglt54[address] [place] [phone]. Airam Tripathi Monocytes/100 WBC (Bld) 7.7 % Normal 1.7-12.0 [facility] Comment on above: Performed By: #### C BC ####[facility] Wdfwgzllyp57[address] [place] [phone]. Airam Tripathi NEUT # 4.7 103/ul Normal 1.4-6.5 [facility] Comment on above: Performed By: #### C BC ####[facility] Aokssznczo28[address] [place] [phone]. Airam Tripathi Neutrophils/100 WBC (Bld) 71.7 % Normal 43.0-75.0 [facility] Comment on above: Performed By: #### C BC ####[facility] Y[address]guwird[address] [place] [address]Dr. Airam Tripathi Platelet mean volume (Bld) [Entitic vol] 8.2 fL Critically low 9.5-13.5 [facility] Comment on above: Performed By: #### C BC ####[facility] Tjzb[address]eqwoz[address] [place] [address]Dr. Airam Tripathi PLT 292 103/ul Normal 150-450 [facility] Comment on above: Performed By: #### C BC ####[facility] Ufxinkhotv49[address] [place] [phone]. Airam Tripathi RBC 3.96 106/ul Critically low 4.20-5.40 [facility] Comment on above: Performed By: #### C BC ####[facility] C[address]vpdfrus[address] [place], [place] [address]Dr. Airam Tripathi WBC 6.6 103/ul Normal 4.0-11.0 [facility] Comment on above: Performed By: #### C BC ####[facility] Ohqrzdvvoc[address] [place], [place] [address]Dr. Airam Tripathi PROF 14(COMP METB)on 023 Albumin [Mass/Vol] 3.3 g/dL Critically low 3.4-5.0 [facility] Comment on above: Performed By: #### C MP ####[facility] [address]fevxecbz[address] [place] [address]Dr. Airam Deuce Albumin/Globulin [Mass ratio] 0.9 {ratio} Normal [facility] Comment on above: Performed By: #### C MP ####[facility] Vjem[address]zpcye[address] [place] [address]Dr. Airam Deuce ALP [Catalytic activity/Vol] 130 U/L Critically high 46-116 [facility] Comment on above: Performed By: #### C MP ####[facility] Lcbgtcregq3644 [place] [address]Dr. Airam Deuce ALT [Catalytic activity/Vol] 23 U/L Normal 14-59 [facility] Comment on above: Performed By: #### C MP ####[facility] Nwttyzggqy[address] [place], [place] [address]Dr. Airam Tripathi Anion gap [Moles/Vol] 11.7 mmol/L Normal [facility] Comment on above: Performed By: #### C MP ####[facility] K[address]irzzaxv[address] [place], [place] [address]Dr. Airam Deuce AST [Catalytic activity/Vol] 23 U/L Normal 15-37 [facility] Comment on above: Performed By: #### C MP ####[facility] Aqgpqsugzr[address] [place], [place] [address]Dr. Selenaneil Deuce Bilirubin [Mass/Vol] 0.3 mg/dL Normal 0.2-1.0 [facility] Comment on above: Performed By: #### C MP ####[facility] Zbtuqgibty[address] [place], [place] [address]Dr. Airam Tripathi Calcium [Mass/Vol] 8.7 mg/dL Normal 8.5-10.1 [facility] Comment on above: Performed By: #### C MP ####[facility] Qetuyzocat[address] [place], [place] [address]Dr. Airam Tripathi Chloride [Moles/Vol] 99 mmol/L Normal 98-107 [facility] Comment on above: Performed By: #### C MP ####[facility] [address]kzgfcv[address] [place] [phone]. Airam Tripathi CO2 [Moles/Vol] 28.5 mmol/L Normal 21.0-32.0 [facility] Comment on above: Performed By: #### C MP ####[facility] Py[address]itp[address] [place] [phone]. Airam Tripathi Creatinine [Mass/Vol] 1.06 mg/dL Critically high 0.55-1.02 [facility] Comment on above: Performed By: #### C MP ####[facility] [address]qrbudsks[address] [place] [phone]. Airam Tripathi EGFR-AF GUAMANIAN >60 Normal >=60 [facility] Comment on above: Performed By: #### C MP ####[facility] [address]awjh[address] [place] [address]Dr. Airam Tripathi EGFR-NON AF GUAMANIAN 53 mL/min/1.73m2 Critically low >=60 [facility] Comment on above: Performed By: #### C MP ####[facility] Dymmjsmcwo[address] [place] [address]Dr. Airam Tripathi Globulin (S) [Mass/Vol] 3.5 g/dL Normal [facility] Comment on above: Performed By: #### C MP ####[facility] Zwckgdjxym[address] [place] [address]Dr. Airam Tripathi Glucose [Mass/Vol] 79 mg/dL Normal 74-106 [facility] Comment on above: Performed By: #### C MP ####[facility] Ufjsczyyuf[address] [place] [address]Dr. Airam Tripathi Potassium [Moles/Vol] 4.2 mmol/L Normal 3.5-5.1 [facility] Comment on above: Performed By: #### C MP ####[facility] Clmsgrxayp4[address] [place] [address]Dr. Airam Tripathi Protein [Mass/Vol] 6.8 g/dL Normal 6.4-8.2 [facility] Comment on above: Performed By: #### C MP ####[facility] Aiztyccdsc[address] [place] [address]Dr. Airam Tripathi Sodium [Moles/Vol] 135 mmol/L Critically low 136-145 Th [facility] Comment on above: Performed By: #### C MP ####[facility] Pjlqwvuuwy[address] [place] [address]Dr. Airam Tripathi Urea nitrogen [Mass/Vol] 16.0 mg/dL Normal 7.0-18.0 [facility] Comment on above: Performed By: #### C MP ####[facility] Tnbcobilis[address] [place] [address]Dr. Airam Tripathi Urea nitrogen/Creatinine [Mass ratio] 15.1 mg/mg Normal [facility] Comment on above: Performed By: #### C MP ####[facility] Bjujwigees[address] [place], [place] [address]Dr. Airam Tripathi XR CHEST 1 Von 10-12-2022 XR CHEST 1 V Normal [facility] Office Visiton 10-10-2022 Follow-up visit [id number] Loren Moser 1960 F Date Provider Department Center 10/10/2022 ZANDRA NASH [facility] No family history on file Level of Service:85640 [place] OFFICE/OUTPATIENT ESTABLISHED MOD MDM 30-39 MIN Reason for Visit and Comments: Congestive Heart Failure [127] Re-establish care [Other] Normal [facility] PRBC LEUKOREDUCEDon 10-10-19 23 PRBC LEUKOREDUCED Normal [facility] Comment on above: Performed By: #### P RBC ####[facility] Ulqvbnawjj[address] [place] [address]Dr. Airam Tripathi CULTURE URINEon 10-08-2022 CULTURE URINE Normal [facility] Comment on above: Performed By: #### U RCX ####[facility] Qkptkapheh[address] [place] [address]Dr. Airam Tripathi OSMOLALITYon 10-08-2022 Osmolality [Osmolality] 282 mosm/kg Normal 275-295 [facility] Comment on above: Performed By: #### O SMO ####[facility] [address]wbz[address] [place], [place] [address]Dr. Airam Tripathi CBC AUTO DIFFon 10-07-2022 BASO # 0.0 103/ul Normal 0.0-0.1 [facility] Comment on above: Performed By: #### C BC ####[facility] [address]fpdyt[address] [place] [address]Dr. Airam Tripathi Basophils/100 WBC (Bld) 0.3 % Normal 0.2-2.0 [facility] Comment on above: Performed By: #### C BC ####[facility] K[address]oywnfrg7[address] [place] [address]Dr. Airam Tripathi EO # 0.2 103/ul Normal 0.0-0.7 [facility] Comment on above: Performed By: #### C BC ####[facility] Tbjmlzqswg0392 [place] [address]Dr. Airam Deuce Eosinophils/100 WBC (Bld) 3.4 % Normal 0.9-7.0 [facility] Comment on above: Performed By: #### C BC ####[facility] Tnwxllbcxe4767 [place] [address]Dr. Airam Tripathi Erythrocyte distribution width (RBC) [Ratio] 15.2 % Critically high 11.0-15.0 [facility] Comment on above: Performed By: #### C BC ####[facility] Qjasfqafkf3339 [place] [address]Dr. Airam Tripathi Hematocrit (Bld) [Volume fraction] 31.3 % Critically low 36.0-48.0 [facility] Comment on above: Performed By: #### C BC ####[facility] Qiyrsclunt[address]63 [place] [address]Dr. Airam Tripathi Hemoglobin (Bld) [Mass/Vol] 9.9 g/dL Critically low 12.0-16.0 [facility] Comment on above: Performed By: #### C BC ####[facility] Rmbmlouakh[address] [place] [address]Dr. Airam Deuce IG # 0.03 10e3/ul Normal 0.00-0.03 [facility] Comment on above: Performed By: #### C BC ####[facility] Glcysgxuwx70[address] [place] [phone]. Airam Tripathi IG % 0.4 % Normal 0.0-0.5 [facility] Comment on above: Performed By: #### C BC ####[facility] Mpvnzuakgh9[address] [place] [phone]. Airam Tripathi LYMPH # 1.3 103/ul Normal 1.2-3.8 [facility] Comment on above: Performed By: #### C BC ####[facility] Geresuqnae25[address] [place] [phone]. Airam Tripathi Lymphocytes/100 WBC (Bld) 19.0 % Critically low 20.5-60.0 [facility] Comment on above: Performed By: #### C BC ####[facility] Uvgsbxcxla4146 [place] [phone]. Airam Tripathi MANUAL DIFF REQ NO Normal [facility] Comment on above: Performed By: #### C BC ####[facility] Dhojffzzjq1036 [place] [phone]. Airam Tripathi MCH (RBC) [Entitic mass] 28.1 pg Normal 26.7-34.0 [facility] Comment on above: Performed By: #### C BC ####[facility] Dnrsbehufo30[address] [place] [phone]. Airam Tripathi MCHC (RBC) [Mass/Vol] 31.6 g/dL Normal 29.9-35.2 [facility] Comment on above: Performed By: #### C BC ####[facility] Yupczzgtyn7106 [place] [phone]. Airam Tripathi MCV (RBC) [Entitic vol] 88.9 fL Normal 81.0-99.0 [facility] Comment on above: Performed By: #### C BC ####[facility] Fzwktxfwjq6823 [place] [phone]. Airam Tripathi MONO # 0.6 103/ul Normal 0.3-0.8 [facility] Comment on above: Performed By: #### C BC ####[facility] Bekxumwtax3556 [place] [phone]. Airam Tripathi Monocytes/100 WBC (Bld) 9.0 % Normal 1.7-12.0 [facility] Comment on above: Performed By: #### C BC ####[facility] Shfcljidfw7560 [place] [phone]. Airam Tripathi NEUT # 4.5 103/ul Normal 1.4-6.5 [facility] Comment on above: Performed By: #### C BC ####[facility] Jyswvisact5317 [place] [phone]. Airam Tripathi Neutrophils/100 WBC (Bld) 67.9 % Normal 43.0-75.0 [facility] Comment on above: Performed By: #### C BC ####[facility] Euquieoysd8644 [place] [address]Dr. Airam Tripathi Platelet mean volume (Bld) [Entitic vol] 9.1 fL Critically low 9.5-13.5 [facility] Comment on above: Performed By: #### C BC ####[facility] Ubhzoglejm9[address] [place] [address]Dr. Airam Tripathi PLT 256 103/ul Normal 150-450 [facility] Comment on above: Performed By: #### C BC ####[facility] Izxkrtoiak3621 [place] [phone]. Airam Tripathi RBC 3.52 106/ul Critically low 4.20-5.40 [facility] Comment on above: Performed By: #### C BC ####[facility] Kvqcbiazhx7435 [place] [address]Dr. Airam Tripathi WBC 6.7 103/ul Normal 4.0-11.0 [facility] Comment on above: Performed By: #### C BC ####[facility] Fiqhghnwdn5162 [place] [address]DrKianna Airam Tripathi PROF 14(COMP METB)on 023 Albumin [Mass/Vol] 2.8 g/dL Critically low 3.4-5.0 [facility] Comment on above: Performed By: #### C MP ####[facility] Dvogwyxwza8230 [place] [phone]. Airam Tripathi Albumin/Globulin [Mass ratio] 0.9 {ratio} Normal [facility] Comment on above: Performed By: #### C MP ####[facility] Puthdbzfqu3732 [place] [phone]. Airam Tripathi ALP [Catalytic activity/Vol] 118 U/L Critically high 46-116 [facility] Comment on above: Performed By: #### C MP ####[facility] Fhesfpdpuj1447 [place] [address]Dr. Airam Deuce ALT [Catalytic activity/Vol] 23 U/L Normal 14-59 [facility] Comment on above: Performed By: #### C MP ####[facility] Kjbgxnszzj[address] [place], [place] [address]Dr. Selenaneil Deuce Anion gap [Moles/Vol] 12.5 mmol/L Normal [facility] Comment on above: Performed By: #### C MP ####[facility] Auagbhbigz[address] [place], [place] [address]Dr. Airam Deuce AST [Catalytic activity/Vol] 21 U/L Normal 15-37 [facility] Comment on above: Performed By: #### C MP ####[facility] Lpowngbkkn[address] [place], [place] [address]Dr. Airam Deuce Bilirubin [Mass/Vol] 0.4 mg/dL Normal 0.2-1.0 [facility] Comment on above: Performed By: #### C MP ####[facility] Gtjqinfxuo6699 [place] [address]Dr. Airam Deuce Calcium [Mass/Vol] 8.2 mg/dL Critically low 8.5-10.1 [facility] Comment on above: Performed By: #### C MP ####[facility] Xmgkgwberr102[address] [place], [place] [address]Dr. Airam Tripathi Chloride [Moles/Vol] 99 mmol/L Normal 98-107 [facility] Comment on above: Performed By: #### C MP ####[facility] Ouaukrhfak7824 [place] [address]Dr. Airam Tripathi CO2 [Moles/Vol] 24.9 mmol/L Normal 21.0-32.0 [facility] Comment on above: Performed By: #### C MP ####[facility] Tjsrkxbdwg7384 [place] [address]Dr. Airam Tripathi Creatinine [Mass/Vol] 1.61 mg/dL Critically high 0.55-1.02 [facility] Comment on above: Performed By: #### C MP ####[facility] Xsviwzvepv[address] [place], [place] [address]Dr. Airam Tripathi EGFR-AF GUAMANIAN 40 mL/min/1.73m2 Critically low >=60 [facility] Comment on above: Performed By: #### C MP ####[facility] Kknchosjjb[address] [place], [place] [address]Dr. Airam Tripathi EGFR-NON AF GUAMANIAN 33 mL/min/1.73m2 Critically low >=60 [facility] Comment on above: Performed By: #### C MP ####[facility] Ihugliouzp590[address] [place], [place] [address]Dr. Airam Tripathi Globulin (S) [Mass/Vol] 3.2 g/dL Normal [facility] Comment on above: Performed By: #### C MP ####[facility] Afotmbvvwv[address] [place], [place] [address]Dr. Airam Tripathi Glucose [Mass/Vol] 67 mg/dL Critically low 74-106 [facility] Comment on above: Performed By: #### C MP ####[facility] Qbuysmiyue[address] [place], [place] [address]Dr. Airam Tripathi Potassium [Moles/Vol] 5.4 mmol/L Critically high 3.5-5.1 [facility] Comment on above: Performed By: #### C MP ####[facility] Wfxmotrzbp024[address] [place], [place] [address]Dr. Airam Tripathi Protein [Mass/Vol] 6.0 g/dL Critically low 6.4-8.2 [facility] Comment on above: Performed By: #### C MP ####[facility] Pcazjravva3729 [place] [phone]. Airam Tripathi Sodium [Moles/Vol] 131 mmol/L Critically low 136-145 Th [facility] Comment on above: Performed By: #### C MP ####[facility] Nhqggfkaoz[address] [place], [place] [address]Dr. Airam Tripathi Urea nitrogen [Mass/Vol] 43.0 mg/dL Critically high 7.0-18.0 [facility] Comment on above: Performed By: #### C MP ####[facility] Mcgkorybtf8[address] [place], [place] [address]Dr. Airam Tripathi Urea nitrogen/Creatinine [Mass ratio] 26.7 mg/mg Normal [facility] Comment on above: Performed By: #### C MP ####[facility] Wgaoexklgv[address] [place], [place] [address]Dr. Airam Tripathi CBC AUTO DIFFon 10-06-2022 BASO # 0.0 103/ul Normal 0.0-0.1 [facility] Comment on above: Performed By: #### C BC ####[facility] Phjuydgzfv[address] [place], [place] [address]Dr. Airam Tripathi Basophils/100 WBC (Bld) 0.3 % Normal 0.2-2.0 [facility] Comment on above: Performed By: #### C BC ####[facility] [address]wluwaqgbn[address] [place], [place] [address]Dr. Airam Tripathi EO # 0.2 103/ul Normal 0.0-0.7 [facility] Comment on above: Performed By: #### C BC ####[facility] Vksomfbmxj[address] [place], [place] [address]Dr. Airam Tripathi Eosinophils/100 WBC (Bld) 3.1 % Normal 0.9-7.0 [facility] Comment on above: Performed By: #### C BC ####[facility] Inpsnbbvsz9[address] [place], [place] [address]Dr. Airam Tripathi Erythrocyte distribution width (RBC) [Ratio] 15.0 % Normal 11.0-15.0 [facility] Comment on above: Performed By: #### C BC ####[facility] Mlmzgxaawe1062 [place] [address]Dr. Airam Tripathi Hematocrit (Bld) [Volume fraction] 30.9 % Critically low 36.0-48.0 [facility] Comment on above: Performed By: #### C BC ####[facility] Qhssokmfgu7000 [place] [address]Dr. Airam Tripathi Hemoglobin (Bld) [Mass/Vol] 10.1 g/dL Critically low 12.0-16.0 [facility] Comment on above: Result Comment: BIJU ENT RECIEVED 2 UNITS PRBC'S Performed By: #### C BC ####[facility] Dtnpxywaty[address] [place], [place] [address]Dr. Airam Tripathi IG # 0.03 10e3/ul Normal 0.00-0.03 [facility] Comment on above: Performed By: #### C BC ####[facility] Ukradioyop[address] [place], [place] [address]Dr. Airam Tripathi IG % 0.4 % Normal 0.0-0.5 [facility] Comment on above: Performed By: #### C BC ####[facility] Rvsrlhcqgd[address] [place], [place] [address]Dr. Airam Tripathi LYMPH # 1.1 103/ul Critically low 1.2-3.8 [facility] Comment on above: Performed By: #### C BC ####[facility] Ycvdetetge[address] [place], [place] [address]Dr. Airam Tripathi Lymphocytes/100 WBC (Bld) 14.4 % Critically low 20.5-60.0 [facility] Comment on above: Performed By: #### C BC ####[facility] Baeqnsujhw[address] [place], [place] [address]Dr. Airam Tripathi MANUAL DIFF REQ NO Normal [facility] Comment on above: Performed By: #### C BC ####[facility] Wwpftgjqln[address] [place], [place] [address]Dr. Airam Tripathi MCH (RBC) [Entitic mass] 28.9 pg Normal 26.7-34.0 [facility] Comment on above: Performed By: #### C BC ####[facility] Zxnvremhct5[address] [place] [id number]. Airam Deuce MCHC (RBC) [Mass/Vol] 32.7 g/dL Normal 29.9-35.2 [facility] Comment on above: Performed By: #### C BC ####[facility] Mglwayzdbn6562 [place] [phone] Tripathi MCV (RBC) [Entitic vol] 88.3 fL Normal 81.0-99.0 [facility] Comment on above: Performed By: #### C BC ####[facility] Zfuoqhotva[address] [place], [place] [address]DrKianna Tripathi MONO # 0.6 103/ul Normal 0.3-0.8 [facility] Comment on above: Performed By: #### C BC ####[facility] Udbcfdmmdz[address] [place], [place] [address]Dr. Airam Tripathi Monocytes/100 WBC (Bld) 7.8 % Normal 1.7-12.0 [facility] Comment on above: Performed By: #### C BC ####[facility] Rozdnrfynt[address] [place], [place] [address]Dr. Airam Tripathi NEUT # 5.5 103/ul Normal 1.4-6.5 [facility] Comment on above: Performed By: #### C BC ####[facility] Akzqphwkam[address] [place], [place] [address]Dr. Airam Tripathi Neutrophils/100 WBC (Bld) 74.0 % Normal 43.0-75.0 [facility] Comment on above: Performed By: #### C BC ####[facility] Qxccqobyxx[address] [place], [place] [address]DrKianna Tripathi Platelet mean volume (Bld) [Entitic vol] 9.2 fL Critically low 9.5-13.5 [facility] Comment on above: Performed By: #### C BC ####[facility] Ljpqlxwmcf[address] [place], [place] [address]DrKianna Tripathi PLT 275 103/ul Normal 150-450 [facility] Comment on above: Performed By: #### C BC ####[facility] Fygmsikrnh2827 [place] [id number]. Airam Tripathi RBC 3.50 106/ul Critically low 4.20-5.40 [facility] Comment on above: Performed By: #### C BC ####[facility] Skgnflmbzj5506 [place] [phone]. Airam Deuce WBC 7.4 103/ul Normal 4.0-11.0 [facility] Comment on above: Performed By: #### C BC ####[facility] Bmvmgtxemx4156 [place] [phone]. Airam Tripathi BASO # 0.0 103/ul Normal 0.0-0.1 [facility] Comment on above: Performed By: #### C BC ####[facility] Ztewoaxjsm8363 [place] [phone]. Airam Tripathi Basophils/100 WBC (Bld) 0.4 % Normal 0.2-2.0 [facility] Comment on above: Performed By: #### C BC ####[facility] Jfrzonbpds3374 [place] [phone]. Airam Tripathi EO # 0.2 103/ul Normal 0.0-0.7 [facility] Comment on above: Performed By: #### C BC ####[facility] Pxaboxkyfn7906 [place] [phone]. Selenaneil Tripathi Eosinophils/100 WBC (Bld) 4.5 % Normal 0.9-7.0 [facility] Comment on above: Performed By: #### C BC ####[facility] Smyzejsljg9467 [place] [phone]. Airam Tripathi Erythrocyte distribution width (RBC) [Ratio] 15.1 % Critically high 11.0-15.0 [facility] Comment on above: Performed By: #### C BC ####[facility] Ukllafzdqo8031 [place] [phone]. Selenaneil Tripathi Hematocrit (Bld) [Volume fraction] 23.0 % Critically low 36.0-48.0 [facility] Comment on above: Performed By: #### C BC ####[facility] Dwyrupvtjz06[address] [place] [address]Dr. Airam Tripathi Hemoglobin (Bld) [Mass/Vol] 7.2 g/dL Critically low 12.0-16.0 [facility] Comment on above: Performed By: #### C BC ####[facility] Fchabrwpng[address] [place] [address]Dr. Airam Tripathi IG # 0.02 10e3/ul Normal 0.00-0.03 [facility] Comment on above: Performed By: #### C BC ####[facility] Jecnjbrawq[address] [place], [place] [address]Dr. Airam Tripathi IG % 0.4 % Normal 0.0-0.5 [facility] Comment on above: Performed By: #### C BC ####[facility] Fsdrdxtszn7[address] [place], [place] [address]Dr. Airam Tripathi LYMPH # 1.0 103/ul Critically low 1.2-3.8 [facility] Comment on above: Performed By: #### C BC ####[facility] Vflfhjnnoi[address] [place], [place] [address]Dr. Airam Tripathi Lymphocytes/100 WBC (Bld) 22.5 % Normal 20.5-60.0 [facility] Comment on above: Performed By: #### C BC ####[facility] Mfqwmxjzhu6[address] [place], [place] [address]Dr. Airam Tripathi MANUAL DIFF REQ NO Normal [facility] Comment on above: Performed By: #### C BC ####[facility] Lvjbmvskae[address] [place], [place] [address]Dr. Airam Tripathi MCH (RBC) [Entitic mass] 28.3 pg Normal 26.7-34.0 [facility] Comment on above: Performed By: #### C BC ####[facility] Rrmhvegjkq[address] [place], [place] [address]Dr. Airam Tripathi MCHC (RBC) [Mass/Vol] 31.3 g/dL Normal 29.9-35.2 [facility] Comment on above: Performed By: #### C BC ####[facility] Dxcaruadku3265 [place] [phone]. Airam Tripathi MCV (RBC) [Entitic vol] 90.6 fL Normal 81.0-99.0 [facility] Comment on above: Performed By: #### C BC ####[facility] Uobecnizlp0302 [place] [phone]. Airam Tripathi MONO # 0.5 103/ul Normal 0.3-0.8 [facility] Comment on above: Performed By: #### C BC ####[facility] Attytzrozx8768 [place] [phone]. Airam Deuce Monocytes/100 WBC (Bld) 9.7 % Normal 1.7-12.0 [facility] Comment on above: Performed By: #### C BC ####[facility] Mxhmyjqdlc[address] [place], [place] [address]Dr. Airam Tripathi NEUT # 2.9 103/ul Normal 1.4-6.5 [facility] Comment on above: Performed By: #### C BC ####[facility] [address]zz[address]wxr[address] [place], [place] [phone]. Airam Deuce Neutrophils/100 WBC (Bld) 62.5 % Normal 43.0-75.0 [facility] Comment on above: Performed By: #### C BC ####[facility] X[address]jmjrlngj[address] [place], [place] [phone]. Airam Deuce Platelet mean volume (Bld) [Entitic vol] 8.9 fL Critically low 9.5-13.5 [facility] Comment on above: Performed By: #### C BC ####[facility] Dksoqxcyju7446 [place] [phone]. Airam Deuce PLT 210 103/ul Normal 150-450 [facility] Comment on above: Performed By: #### C BC ####[facility] Wanyyflbdn2560 [place] [phone]. Airam Tripathi RBC 2.54 106/ul Critically low 4.20-5.40 [facility] Comment on above: Performed By: #### C BC ####[facility] Oenqgjbxoa40[address] [place] [address]Dr. Selenaneil Duece WBC 4.6 103/ul Normal 4.0-11.0 [facility] Comment on above: Performed By: #### C BC ####[facility] Xgarjthtyv9428 [place] [phone]. Selenaneil Deuce OSMOLALITYon 10-06-2022 Osmolality [Osmolality] 279 mosm/kg Normal 275-295 [facility] Comment on above: Performed By: #### O SMO ####[facility] Bmtovycsai07[address] [place] [address]Dr. Airam Tripathi POINT OF CARE GLUCOSEon 09-24 Glucose [Mass/Vol] 72 mg/dL Critically low 74-106 [facility] Comment on above: Performed By: #### P OCGLUC ####[facility] Bxosxvamun[address] [place], [place] [address]Dr. Airam Tripathi Glucose [Mass/Vol] 102 mg/dL Normal 74-106 [facility] Comment on above: Performed By: #### P OCGLUC ####[facility] Oewdjdchly8304 [place] [address]Dr. Airam Tripathi Glucose [Mass/Vol] 165 mg/dL Critically high 74-106 [facility] Comment on above: Performed By: #### P OCGLUC ####[facility] Jeimwbeeeu7797 [place] [address]Dr. Airam Tripathi PROF 14(COMP METB)on 023 Albumin [Mass/Vol] 2.6 g/dL Critically low 3.4-5.0 [facility] Comment on above: Performed By: #### C MP ####[facility] Cfmxicvmio[address] [place], [place] [address]Dr. Airam Tripathi Albumin/Globulin [Mass ratio] 0.9 {ratio} Normal [facility] Comment on above: Performed By: #### C MP ####[facility] Dhuggjblhk0510 [place] [address]Dr. Airam Tripathi ALP [Catalytic activity/Vol] 107 U/L Normal 46-116 [facility] Comment on above: Performed By: #### C MP ####[facility] Dankmhtczh0922 [place] [phone]. Airam Tripathi ALT [Catalytic activity/Vol] 22 U/L Normal 14-59 [facility] Comment on above: Performed By: #### C MP ####[facility] Xgwsqehzpy1972 [place] [phone]. Airam Tripathi Anion gap [Moles/Vol] 10.0 mmol/L Normal [facility] Comment on above: Performed By: #### C MP ####[facility] Ivingiqzxv6660 [place] [phone]. Airam Tripathi AST [Catalytic activity/Vol] 19 U/L Normal 15-37 [facility] Comment on above: Performed By: #### C MP ####[facility] Rifgkzvbhc4580 [place] [address]Dr. Airam Deuce Bilirubin [Mass/Vol] 0.2 mg/dL Normal 0.2-1.0 [facility] Comment on above: Performed By: #### C MP ####[facility] Pcgwurufsk2328 [place] [phone]. Airam Deuce Calcium [Mass/Vol] 8.1 mg/dL Critically low 8.5-10.1 [facility] Comment on above: Performed By: #### C MP ####[facility] Tagklbyhza9187 [place] [phone]. Airam Deuce Chloride [Moles/Vol] 100 mmol/L Normal 98-107 [facility] Comment on above: Performed By: #### C MP ####[facility] Klynxftntm4949 [place] [phone]. Airam Deuce CO2 [Moles/Vol] 26.2 mmol/L Normal 21.0-32.0 [facility] Comment on above: Performed By: #### C MP ####[facility] Qwhlazauam7628 [place] [phone]. Selenaneil Tripathi Creatinine [Mass/Vol] 1.90 mg/dL Critically high 0.55-1.02 [facility] Comment on above: Performed By: #### C MP ####[facility] Xdmxruvbta2717 [place] [phone]. Airam Tripathi EGFR-AF GUAMANIAN 33 mL/min/1.73m2 Critically low >=60 [facility] Comment on above: Performed By: #### C MP ####[facility] Wlodzelyop1006 [place] [phone]. Airam Tripathi EGFR-NON AF GUAMANIAN 27 mL/min/1.73m2 Critically low >=60 [facility] Comment on above: Performed By: #### C MP ####[facility] Rfgbzomouc4957 [place] [phone]. Airam Deuce Globulin (S) [Mass/Vol] 2.8 g/dL Normal [facility] Comment on above: Performed By: #### C MP ####[facility] Sdemllegth3794 [place] [address]Dr. Airam Tripathi Glucose [Mass/Vol] 115 mg/dL Critically high 74-106 [facility] Comment on above: Performed By: #### C MP ####[facility] Wqgjdtyskg5241 [place] [phone]. Airam Deuce Potassium [Moles/Vol] 5.2 mmol/L Critically high 3.5-5.1 [facility] Comment on above: Performed By: #### C MP ####[facility] Xamywnmrbd1803 [place] [phone]. Airam Tripathi Protein [Mass/Vol] 5.4 g/dL Critically low 6.4-8.2 [facility] Comment on above: Performed By: #### C MP ####[facility] Mmqqnmvluc1870 [place] [phone]. Airam Tripathi Sodium [Moles/Vol] 131 mmol/L Critically low 136-145 [facility] Comment on above: Performed By: #### C MP ####[facility] Ciakjtbjvx3417 [place] [phone]. Airam Deuce Urea nitrogen [Mass/Vol] 41.0 mg/dL Critically high 7.0-18.0 [facility] Comment on above: Performed By: #### C MP ####[facility] Lhcqazocav[address] [place], [place] [address]Dr. Airam Deuce Urea nitrogen/Creatinine [Mass ratio] 21.6 mg/mg Normal [facility] Comment on above: Performed By: #### C MP ####[facility] Bbzunpizcw[address] [place], [place] [address]Dr. Airam Tripathi TYPE AND SCREENon 10-06-2022 TYPE AND SCREEN Negative Normal [facility] Comment on above: Performed By: #### T NS ####[facility] Bwcyaofhys[address] [place], [place] [address]Dr. Airam Tripathi CBC AUTO DIFFon 10-05-2022 BASO # 0.0 103/ul Normal 0.0-0.1 [facility] Comment on above: Performed By: #### C BC ####[facility] Sjtaieynph8[address] [place], [place] [address]Dr. Airam Tripathi Basophils/100 WBC (Bld) 0.5 % Normal 0.2-2.0 [facility] Comment on above: Performed By: #### C BC ####[facility] Qbjkfndcyk93[address] [place], [place] [address]Dr. Selenaneil Tripathi EO # 0.2 103/ul Normal 0.0-0.7 [facility] Comment on above: Performed By: #### C BC ####[facility] Eoqoeoutfu335[address] [place], [place] [address]Dr. Ariam Tripathi Eosinophils/100 WBC (Bld) 3.2 % Normal 0.9-7.0 [facility] Comment on above: Performed By: #### C BC ####[facility] Iqjpzsjbtg[address] [place], [place] [address]Dr. Airam Tripathi Erythrocyte distribution width (RBC) [Ratio] 15.2 % Critically high 11.0-15.0 [facility] Comment on above: Performed By: #### C BC ####[facility] Bfcbfkdtyl674[address] [place], [place] [address]Dr. Airam Tripathi Hematocrit (Bld) [Volume fraction] 24.7 % Critically low 36.0-48.0 [facility] Comment on above: Performed By: #### C BC ####[facility] Jctaowtsmf1519 [place] [address]DrKianna Tripathi Hemoglobin (Bld) [Mass/Vol] 7.6 g/dL Critically low 12.0-16.0 [facility] Comment on above: Performed By: #### C BC ####[facility] Hmqqxainae[address] [place], [place] [address]DrKianna Tripathi IG # 0.02 10e3/ul Normal 0.00-0.03 [facility] Comment on above: Performed By: #### C BC ####[facility] Mjifubdqwo[address] [place], [place] [address]DrKianna Tripathi IG % 0.3 % Normal 0.0-0.5 [facility] Comment on above: Performed By: #### C BC ####[facility] Hbpaeygczt299[address] [place], [place] [address]DrKianna Tripathi LYMPH # 1.1 103/ul Critically low 1.2-3.8 [facility] Comment on above: Performed By: #### C BC ####[facility] Acfmonzdcx[address] [place], [place] [address]DrKianna Tripathi Lymphocytes/100 WBC (Bld) 18.4 % Critically low 20.5-60.0 [facility] Comment on above: Performed By: #### C BC ####[facility] Nrvswxarog[address] [place], [place] [address]DrKianna Tripathi MANUAL DIFF REQ NO Normal [facility] Comment on above: Performed By: #### C BC ####[facility] Tocfrlfwhj[address] [place], [place] [address]DrKianna Tripathi MCH (RBC) [Entitic mass] 28.5 pg Normal 26.7-34.0 [facility] Comment on above: Performed By: #### C BC ####[facility] Piaatqcbmz[address] [place], [place] [address]DrKianna Tripathi MCHC (RBC) [Mass/Vol] 30.8 g/dL Normal 29.9-35.2 [facility] Comment on above: Performed By: #### C BC ####[facility] Zxezkjgwgd9884 [place] [address]DrKianna Tripathi MCV (RBC) [Entitic vol] 92.5 fL Normal 81.0-99.0 [facility] Comment on above: Performed By: #### C BC ####[facility] Vebmczxmax9367 [place] [address]DrKianna Tripathi MONO # 0.6 103/ul Normal 0.3-0.8 [facility] Comment on above: Performed By: #### C BC ####[facility] Iwebyeoiwo6201 [place] [address]DrKianna Tripathi Monocytes/100 WBC (Bld) 10.0 % Normal 1.7-12.0 [facility] Comment on above: Performed By: #### C BC ####[facility] Iahcdcarkt[address] [place], [place] [address]DrKianna Tripathi NEUT # 4.0 103/ul Normal 1.4-6.5 [facility] Comment on above: Performed By: #### C BC ####[facility] Ittwpnxapq7[address] [place], [place] [address]DrKianna Tripathi Neutrophils/100 WBC (Bld) 67.6 % Normal 43.0-75.0 [facility] Comment on above: Performed By: #### C BC ####[facility] Wrphxgqtgi[address] [place], [place] [address]DrKianna Tripathi Platelet mean volume (Bld) [Entitic vol] 8.8 fL Critically low 9.5-13.5 [facility] Comment on above: Performed By: #### C BC ####[facility] Ttkijbbglx[address] [place], [place] [address]DrKianna Tripathi PLT 226 103/ul Normal 150-450 [facility] Comment on above: Performed By: #### C BC ####[facility] Rbltanjjcz0945 [place] [id number] Tripathi RBC 2.67 106/ul Critically low 4.20-5.40 [facility] Comment on above: Performed By: #### C BC ####[facility] Vq[address]ocfslto8[address] [place], [place] [address]Hy. Airam Tripathi WBC 5.9 103/ul Normal 4.0-11.0 [facility] Comment on above: Performed By: #### C BC ####[facility] Fiiqalzbip[address] [place], [place] [address]Fg. Airam Tripathi Covid-19 PCR (CVDTB)on 09-24 SARS-CoV-2 (COVID-19) RNA MIKE+probe Ql (Unsp spec) Not detected Normal NOT DETECTED [facility] Comment on above: Result Comment: When [...] for this test is supported by the [place] of Health and Human Service's declaration that [...] be used). Performed By: #### C VDTBH ####[facility] Oytszvqhvj2466 [place], [place] [address]Sq. Airam Tripathi MAGNESIUMon 10-05-2022 Magnesium [Mass/Vol] 1.7 mg/dL Critically low 1.8-2.4 [facility] Comment on above: Performed By: #### M G, CMP ####[facility] Rngddkscjg5152 [place], [place] [address]Zy. Airam Tripathi POINT OF CARE GLUCOSEon 09-24 Glucose [Mass/Vol] 92 mg/dL Normal 74-106 [facility] Comment on above: Performed By: #### P OCGLUC ####[facility] Jizqizeany8998 [place] [address]Dr. Airam Tripathi PROF 14(COMP METB)on 023 Albumin [Mass/Vol] 2.9 g/dL Critically low 3.4-5.0 [facility] Comment on above: Performed By: #### M G, CMP ####[facility] Jfvkigtxps6352 [place] [address]Dr. Airam Tripathi Albumin/Globulin [Mass ratio] 0.9 {ratio} Normal [facility] Comment on above: Performed By: #### M G, CMP ####[facility] Xfowfswero[address] [place], [place] [address]Dr. Airam Tripathi ALP [Catalytic activity/Vol] 122 U/L Critically high 46-116 [facility] Comment on above: Performed By: #### M G, CMP ####[facility] Rsxmdegkcr473[address] [place], [place] [address]Dr. Airam Tripathi ALT [Catalytic activity/Vol] 24 U/L Normal 14-59 [facility] Comment on above: Performed By: #### M G, CMP ####[facility] Jltxcwblhn243[address] [place], [place] [address]Dr. Airam Tripathi Anion gap [Moles/Vol] 13.1 mmol/L Normal [facility] Comment on above: Performed By: #### M G, CMP ####[facility] Dbhiuyatko[address] [place], [place] [address]Dr. Airam Tripathi AST [Catalytic activity/Vol] 21 U/L Normal 15-37 [facility] Comment on above: Performed By: #### M G, CMP ####[facility] Tawnuwtlek228[address] [place], [place] [address]Dr. Airam Tripathi Bilirubin [Mass/Vol] 0.2 mg/dL Normal 0.2-1.0 [facility] Comment on above: Performed By: #### M G, CMP ####[facility] Oigjntvfec[address] [place], [place] [address]Dr. Airam Tripathi Calcium [Mass/Vol] 8.4 mg/dL Critically low 8.5-10.1 [facility] Comment on above: Performed By: #### Nadya Calderon, CMP ####[facility] Nlvniprszt[address] [place], [place] [address]Dr. Airam Tripathi Chloride [Moles/Vol] 102 mmol/L Normal 98-107 [facility] Comment on above: Performed By: #### Nadya Calderon, CMP ####[facility] Tkdmiiruww[address] [place], [place] [address]Dr. Airam Tripathi CO2 [Moles/Vol] 23.2 mmol/L Normal 21.0-32.0 [facility] Comment on above: Performed By: #### Nadya Calderon, CMP ####[facility] Jpbgfbtnjv[address] [place], [place] [address]Dr. Airam Tripathi Creatinine [Mass/Vol] 1.96 mg/dL Critically high 0.55-1.02 [facility] Comment on above: Performed By: #### Nadya Calderon, CMP ####[facility] Wsidchjfpl[address] [place], [place] [address]Dr. Airam Tripathi EGFR-AF GUAMANIAN 32 mL/min/1.73m2 Critically low >=60 [facility] Comment on above: Performed By: #### Nadya Calderon, CMP ####[facility] Ykokpalvwk[address] [place], [place] [address]Dr. Airam Tripathi EGFR-NON AF GUAMANIAN 26 mL/min/1.73m2 Critically low >=60 [facility] Comment on above: Performed By: #### Nadya Calderon, CMP ####[facility] Udwnxixgyy[address] [place], [place] [address]Dr. Airam Tripathi Globulin (S) [Mass/Vol] 3.2 g/dL Normal [facility] Comment on above: Performed By: #### Nadya aClderon, CMP ####[facility] Sbjaysuxxo204[address] [place], [place] [address]Dr. Airam Tripathi Glucose [Mass/Vol] 68 mg/dL Critically low 74-106 Th [facility] Comment on above: Performed By: #### Nadya Calderon, CMP ####[facility] Vortqxwgbi[address] [place], [place] [address]Dr. Airam Tripathi Potassium [Moles/Vol] 5.3 mmol/L Critically high 3.5-5.1 [facility] Comment on above: Performed By: #### M Yumiko, CMP ####[facility] Urqxrytnsg[address] [place], [place] [address]Dr. Airam Tripathi Protein [Mass/Vol] 6.1 g/dL Critically low 6.4-8.2 Th [facility] Comment on above: Performed By: #### M Yumiko, CMP ####[facility] [address]fwhzirukz[address] [place], [place] [address]Dr. Airam Tripathi Sodium [Moles/Vol] 133 mmol/L Critically low 136-145 [facility] Comment on above: Performed By: #### Nadya Calderon, CMP ####[facility] Ducjobzied[address] [place], [place] [address]Dr. Airam Tripathi Urea nitrogen [Mass/Vol] 39.0 mg/dL Critically high 7.0-18.0 [facility] Comment on above: Performed By: #### Nadya Calderon, CMP ####[facility] Iqflmsqkrb[address] [place], [place] [address]Dr. Airam Tripathi Urea nitrogen/Creatinine [Mass ratio] 19.9 mg/mg Normal [facility] Comment on above: Performed By: #### Nadya Calderon, CMP ####[facility] Csxdytlfyo[address] [place], [place] [address]Dr. Airam Tripathi SODIUM RANDOM URINEon 2022 Sodium (U) [Moles/Vol] 37 mmol/L Normal 30-90 [facility] Comment on above: Performed By: #### N AU ####[facility] Ikxvhmlrjj[address] [place], [place] [address]Dr. Airam Tripathi UA RANDOM W/MICROSCOPICon BACTERIA TRACE Abnormal NONE SEEN [facility] Comment on above: Performed By: #### U AMIC ####[facility] Tkmbgabpht[address] [place], [place] [address]Dr. Airam Tripathi Bilirubin Ql (U) Negative Normal NEGATIVE [facility] Comment on above: Performed By: #### U AMIC ####[facility] [address] [place] [address]Dr. Airam Tripathi CAST SEEN Abnormal NONE SEEN [facility] Comment on above: Performed By: #### U AMIC ####[facility] Fqrvmvemjk47[address] [place] [address]Dr. Airam Tripathi Clarity (U) CLEAR Normal CLEAR [facility] Comment on above: Performed By: #### U AMIC ####[facility] Ixmkveeksw24[address] [place] [address]Dr. Airam Tripathi Color (U) YELLOW Normal YELLOW [facility] Comment on above: Performed By: #### U AMIC ####[facility] Nnsssdaoff[address] [place], [place] [address]Dr. Airam Tripathi Crystals LM Nom (Urine sed) NONE SEEN Normal NONE SEEN [facility] Comment on above: Performed By: #### U AMIC ####[facility] Uwiifvoaik[address] [place], [place] [address]Dr. Airam Tripathi Epithelial cells LM Ql (Urine sed) RARE Normal NONE SEEN /RARE [facility] Comment on above: Performed By: #### U AMIC ####[facility] Dsqmzuumxr[address] [place], [place] [address]Dr. Airam Tripathi Glucose Ql (U) Negative Normal NEGATIVE [facility] Comment on above: Performed By: #### U AMIC ####[facility] Nnngitvfex[address] [place], [place] [address]Dr. Airam Tripathi Hemoglobin Ql (U) Negative Normal NEGATIVE [facility] Comment on above: Performed By: #### U AMIC ####[facility] Txtshbflrt[address] [place], [place] [address]Dr. Airam Tripathi HYALINE CAST RARE Normal [facility] Comment on above: Performed By: #### U AMIC ####[facility] Cjwvtzpvka[address] [place], [place] [address]Dr. Airam Tripathi Ketones Ql (U) TRACE Abnormal NEGATIVE [facility] Comment on above: Performed By: #### U AMIC ####[facility] Frkysxxpyz[address] [place], [place] [address]Dr. Airam Tripathi LEUKOCYTES Negative Normal NEGATIVE [facility] Comment on above: Performed By: #### U AMIC ####[facility] Dsxnfnennm90[address] [place] [address]Dr. Airam Tripathi MUCOUS NONE SEEN Normal NONE SEEN [facility] Comment on above: Performed By: #### U AMIC ####[facility] Mzksluoqkk44[address] [place] [address]Dr. Airam Tripathi Nitrite Ql (U) Negative Normal NEGATIVE [facility] Comment on above: Performed By: #### U AMIC ####[facility] Rhmxwffqli15[address] [place] [address]Dr. Airam Tripathi pH (U) 5.0 [pH] Normal 5-9 [facility] Comment on above: Performed By: #### U AMIC ####[facility] Hzxlhdxapz0266 [place] [address]Dr. Airam Tripathi RBC 0-2 Normal 0-2 [facility] Comment on above: Performed By: #### U AMIC ####[facility] Nvxcfwdtof[address] [place], [place] [address]Dr. Airam Tripathi SPEC GRAVITY 1.015 Normal 1.005-<=1. 025 [facility] Comment on above: Performed By: #### U AMIC ####[facility] Xqdglzudig[address] [place], [place] [address]Dr. Airam Tripathi UA PROTEIN Negative Normal NEGATIVE/ TRACE [facility] Comment on above: Performed By: #### U AMIC ####[facility] Pwwpcwdcfz[address] [place], [place] [address]Dr. Airam Tripathi Urobilinogen Qn (U) 0.2 {Ligia'U}/dL Normal 0.2 - 1. 0 [facility] Comment on above: Performed By: #### U AMIC ####[facility] Kgmitegdla[address] [place], [place] [address]Dr. Airam Tripathi WBC NONE SEEN Normal NONE SEEN [facility] Comment on above: Performed By: #### U AMIC ####[facility] Rkcjjrlmjh489[address] [place], [place] [address]Dr. Airam Tripathi CBC AUTO DIFFon 10-04-2022 BASO # 0.0 103/ul Normal 0.0-0.1 [facility] Comment on above: Performed By: #### C BC ####[facility] Cbudpdtexz40[address] [place] [address]Dr. Airam Tripathi Basophils/100 WBC (Bld) 0.3 % Normal 0.2-2.0 [facility] Comment on above: Performed By: #### C BC ####[facility] Ogtkcyzebj4652 [place] [address]Dr. Airam Tripathi EO # 0.2 103/ul Normal 0.0-0.7 [facility] Comment on above: Performed By: #### C BC ####[facility] Lvplvsmqen[address] [place], [place] [address]Dr. Airam Tripathi Eosinophils/100 WBC (Bld) 3.2 % Normal 0.9-7.0 [facility] Comment on above: Performed By: #### C BC ####[facility] Ydyrndmdtd[address] [place], [place] [address]Dr. Airam Tripathi Erythrocyte distribution width (RBC) [Ratio] 15.1 % Critically high 11.0-15.0 [facility] Comment on above: Performed By: #### C BC ####[facility] Zydqfklgaa17[address] [place], [place] [address]Dr. Airam Tripathi Hematocrit (Bld) [Volume fraction] 27.6 % Critically low 36.0-48.0 [facility] Comment on above: Performed By: #### C BC ####[facility] Wtzzkbvovc[address] [place], [place] [address]Dr. Airam Tripathi Hemoglobin (Bld) [Mass/Vol] 8.7 g/dL Critically low 12.0-16.0 [facility] Comment on above: Performed By: #### C BC ####[facility] Hjabxjnvkr[address] [place], [place] [address]Dr. Airam Tripathi IG # 0.03 10e3/ul Normal 0.00-0.03 [facility] Comment on above: Performed By: #### C BC ####[facility] Cngpynijem[address] [place] [id number]. Airam Tripathi IG % 0.4 % Normal 0.0-0.5 [facility] Comment on above: Performed By: #### C BC ####[facility] Bufsxesnqh264[address] [place] [phone]. Airam Tripathi LYMPH # 1.2 103/ul Normal 1.2-3.8 [facility] Comment on above: Performed By: #### C BC ####[facility] Qamarpmopj5326 [place] [phone]. Airam Tripathi Lymphocytes/100 WBC (Bld) 16.4 % Critically low 20.5-60.0 [facility] Comment on above: Performed By: #### C BC ####[facility] Rhecjuydzh[address] [place] [address]Dr. Airam Deuce MANUAL DIFF REQ NO Normal [facility] Comment on above: Performed By: #### C BC ####[facility] Whjiegredv57[address] [place] [address]Dr. Airam Tripathi MCH (RBC) [Entitic mass] 28.5 pg Normal 26.7-34.0 [facility] Comment on above: Performed By: #### C BC ####[facility] Rmjbbrijep5384 [place] [phone]. Airam Tripathi MCHC (RBC) [Mass/Vol] 31.5 g/dL Normal 29.9-35.2 [facility] Comment on above: Performed By: #### C BC ####[facility] Yvkyydepyj3193 [place] [id number]. Airam Tripathi MCV (RBC) [Entitic vol] 90.5 fL Normal 81.0-99.0 [facility] Comment on above: Performed By: #### C BC ####[facility] Zcysafgloc[address] [place], [place] [address]Dr. Airam Deuce MONO # 0.5 103/ul Normal 0.3-0.8 [facility] Comment on above: Performed By: #### C BC ####[facility] Sczpzddpsm40[address] [place] [phone]. Airam Tripathi Monocytes/100 WBC (Bld) 7.3 % Normal 1.7-12.0 [facility] Comment on above: Performed By: #### C BC ####[facility] Cegcpembqh7403 [place] [id number]. Airam Tripathi NEUT # 5.4 103/ul Normal 1.4-6.5 [facility] Comment on above: Performed By: #### C BC ####[facility] Xkzrytcemp6872 [place] [address]Dr. Airam Tripathi Neutrophils/100 WBC (Bld) 72.4 % Normal 43.0-75.0 [facility] Comment on above: Performed By: #### C BC ####[facility] Lgxtyrkmcz7[address] [place] [address]Dr. Airam Tripathi Platelet mean volume (Bld) [Entitic vol] 9.1 fL Critically low 9.5-13.5 [facility] Comment on above: Performed By: #### C BC ####[facility] Je[address]zsyzmd[address] [place] [address]Dr. Airam Tripathi PLT 304 103/ul Normal 150-450 [facility] Comment on above: Performed By: #### C BC ####[facility] Wwfxocnymt39[address] [place] [address]Dr. Airam Tripathi RBC 3.05 106/ul Critically low 4.20-5.40 [facility] Comment on above: Performed By: #### C BC ####[facility] Apxeavqdyc5[address] [place] [address]Dr. Airam Tripathi WBC 7.4 103/ul Normal 4.0-11.0 [facility] Comment on above: Performed By: #### C BC ####[facility] Tovnvfrpjh4638 [place] [address]DrKianna Airam Deuce PROF 14(COMP METB)on 023 Albumin [Mass/Vol] 3.3 g/dL Critically low 3.4-5.0 [facility] Comment on above: Performed By: #### C MP ####[facility] Egslhwuhno6075 [place] [phone]. Airam Tripathi Albumin/Globulin [Mass ratio] 0.9 {ratio} Normal [facility] Comment on above: Performed By: #### C MP ####[facility] Dbwujfhqsj9280 [place] [phone]. Airam Tripathi ALP [Catalytic activity/Vol] 127 U/L Critically high 46-116 [facility] Comment on above: Performed By: #### C MP ####[facility] Epankmwmko9652 [place] [address]Dr. Airam Deuce ALT [Catalytic activity/Vol] 29 U/L Normal 14-59 [facility] Comment on above: Performed By: #### C MP ####[facility] Aczoohmbby5344 [place] [address]Dr. Selenaneil Deuce Anion gap [Moles/Vol] 14.6 mmol/L Normal [facility] Comment on above: Performed By: #### C MP ####[facility] Wbwlvhyjaw[address] [place], [place] [address]Dr. Airam Deuce AST [Catalytic activity/Vol] 28 U/L Normal 15-37 [facility] Comment on above: Performed By: #### C MP ####[facility] Iduxbtqhdb[address] [place], [place] [address]Dr. Airam Deuce Bilirubin [Mass/Vol] 0.3 mg/dL Normal 0.2-1.0 [facility] Comment on above: Performed By: #### C MP ####[facility] Cboejxnagu65[address] [place] [address]Dr. Airam Deuce Calcium [Mass/Vol] 8.9 mg/dL Normal 8.5-10.1 [facility] Comment on above: Performed By: #### C MP ####[facility] Fmxrjyjlfk8[address] [place], [place] [address]Dr. Airam Deuce Chloride [Moles/Vol] 99 mmol/L Normal 98-107 [facility] Comment on above: Performed By: #### C MP ####[facility] Deimofflnr[address] [place], [place] [address]Dr. Airam Tripathi CO2 [Moles/Vol] 25.1 mmol/L Normal 21.0-32.0 [facility] Comment on above: Performed By: #### C MP ####[facility] Uehxqyinmx0542 [place] [address]Dr. Airam Tripathi Creatinine [Mass/Vol] 1.42 mg/dL Critically high 0.55-1.02 [facility] Comment on above: Performed By: #### C MP ####[facility] Aytzvgvuru99[address] [place] [address]Dr. Airam Tripathi EGFR-AF GUAMANIAN 46 mL/min/1.73m2 Critically low >=60 [facility] Comment on above: Performed By: #### C MP ####[facility] Ofvljttdkj1609 [place] [address]Dr. Airam Tripathi EGFR-NON AF GUAMANIAN 38 mL/min/1.73m2 Critically low >=60 [facility] Comment on above: Performed By: #### C MP ####[facility] Whdaymsqjx426[address] [place], [place] [address]Dr. Airam Tripathi Globulin (S) [Mass/Vol] 3.6 g/dL Normal [facility] Comment on above: Performed By: #### C MP ####[facility] Rokadytqel6[address] [place] [address]Dr. Airam Tripathi Glucose [Mass/Vol] 79 mg/dL Normal 74-106 [facility] Comment on above: Performed By: #### C MP ####[facility] Fkegzspqhg69[address] [place], [place] [address]Dr. Airam Tripathi Potassium [Moles/Vol] 5.7 mmol/L Critically high 3.5-5.1 [facility] Comment on above: Performed By: #### C MP ####[facility] Wstwogbfaw9[address] [place], [place] [address]Dr. Airam Tripathi Protein [Mass/Vol] 6.9 g/dL Normal 6.4-8.2 [facility] Comment on above: Performed By: #### C MP ####[facility] Ibcxqopprt5187 [place] [address]Dr. Airam Tripathi Sodium [Moles/Vol] 133 mmol/L Critically low 136-145 [facility] Comment on above: Performed By: #### C MP ####[facility] Xcfmckgerm[address] [place], [place] [address]Dr. Airam Tripathi Urea nitrogen [Mass/Vol] 35.0 mg/dL Critically high 7.0-18.0 [facility] Comment on above: Performed By: #### C MP ####[facility] Lchrgnyjwm113[address] [place], [place] [address]Dr. Airam Tripathi Urea nitrogen/Creatinine [Mass ratio] 24.6 mg/mg Normal [facility] Comment on above: Performed By: #### C MP ####[facility] Gynchqbjwy87[address] [place], [place] [address]Dr. Airam Tripathi OSMOLALITYon 10-02-2022 Osmolality [Osmolality] 277 mosm/kg Normal 275-295 [facility] Comment on above: Performed By: #### O SMO ####[facility] Bwfftevkpg[address] [place], [place] [address]Dr. Airam Tripathi CBC AUTO DIFFon 09-29-2022 BASO # 0.0 103/ul Normal 0.0-0.1 [facility] Comment on above: Performed By: #### C BC ####[facility] Awzzhptxli48[address] [place], [place] [address]Dr. Airam Deuce Basophils/100 WBC (Bld) 0.5 % Normal 0.2-2.0 [facility] Comment on above: Performed By: #### C BC ####[facility] Yskopngfir88[address] [place], [place] [address]Dr. Airam Deuce EO # 0.2 103/ul Normal 0.0-0.7 [facility] Comment on above: Performed By: #### C BC ####[facility] Ybdoaeimzd27[address] [place], [place] [address]Dr. Airam Deuce Eosinophils/100 WBC (Bld) 3.2 % Normal 0.9-7.0 [facility] Comment on above: Performed By: #### C BC ####[facility] Qfdwaprmbl9426 [place] [address]Dr. Airam Tripathi Erythrocyte distribution width (RBC) [Ratio] 15.1 % Critically high 11.0-15.0 [facility] Comment on above: Performed By: #### C BC ####[facility] Uiodjabbha[address] [place], [place] [address]Dr. Airam Tripathi Hematocrit (Bld) [Volume fraction] 26.2 % Critically low 36.0-48.0 [facility] Comment on above: Performed By: #### C BC ####[facility] Qjxhnntpem[address] [place], [place] [address]Dr. Airam Tripathi Hemoglobin (Bld) [Mass/Vol] 8.1 g/dL Critically low 12.0-16.0 [facility] Comment on above: Performed By: #### C BC ####[facility] Ivplwxedle96[address] [place], [place] [address]Dr. Selenaneil Tripathi IG # 0.02 10e3/ul Normal 0.00-0.03 [facility] Comment on above: Performed By: #### C BC ####[facility] Zulginwjqk[address] [place], [place] [address]Dr. Airam Tripathi IG % 0.4 % Normal 0.0-0.5 [facility] Comment on above: Performed By: #### C BC ####[facility] Iltrgrtrde[address] [place], [place] [address]Dr. Airam Tripathi LYMPH # 1.3 103/ul Normal 1.2-3.8 [facility] Comment on above: Performed By: #### C BC ####[facility] Bmtcrfisff434[address] [place], [place] [address]Dr. Selenaneil Tripathi Lymphocytes/100 WBC (Bld) 22.6 % Normal 20.5-60.0 [facility] Comment on above: Performed By: #### C BC ####[facility] Ikynaeueui[address] [place], [place] [address]Dr. Airam Tripathi MANUAL DIFF REQ NO Normal [facility] Comment on above: Performed By: #### C BC ####[facility] Cdjrslelah8226 [place] [phone]. Airam Tripathi MCH (RBC) [Entitic mass] 28.0 pg Normal 26.7-34.0 [facility] Comment on above: Performed By: #### C BC ####[facility] Iqsdabbctj4292 [place] [phone]. Airam Tripathi MCHC (RBC) [Mass/Vol] 30.9 g/dL Normal 29.9-35.2 [facility] Comment on above: Performed By: #### C BC ####[facility] Xkqvwkslqx[address] [place], [place] [id number]. Airam Tripathi MCV (RBC) [Entitic vol] 90.7 fL Normal 81.0-99.0 [facility] Comment on above: Performed By: #### C BC ####[facility] Ooinsbgjki[address] [place], [place] [address]Dr. Airam Deuce MONO # 0.5 103/ul Normal 0.3-0.8 [facility] Comment on above: Performed By: #### C BC ####[facility] Icksiiuxuk[address] [place], [place] [address]Dr. Airam Deuce Monocytes/100 WBC (Bld) 9.6 % Normal 1.7-12.0 [facility] Comment on above: Performed By: #### C BC ####[facility] Levddxljxx259[address] [place], [place] [address]Dr. Airam Tripathi NEUT # 3.6 103/ul Normal 1.4-6.5 [facility] Comment on above: Performed By: #### C BC ####[facility] [address]twzepgnjp[address] [place], [place] [id number]. Airam Deuce Neutrophils/100 WBC (Bld) 63.7 % Normal 43.0-75.0 [facility] Comment on above: Performed By: #### C BC ####[facility] Sypsbslyhl[address] [place], [place] [address]Dr. Airam Deuce Platelet mean volume (Bld) [Entitic vol] 9.4 fL Critically low 9.5-13.5 [facility] Comment on above: Performed By: #### C BC ####[facility] Jefmygajqe38[address] [place] [phone]. Selenaneil Deuce PLT 258 103/ul Normal 150-450 [facility] Comment on above: Performed By: #### C BC ####[facility] Bdvktockys1670 [place] [phone]. Airam Tripathi RBC 2.89 106/ul Critically low 4.20-5.40 [facility] Comment on above: Performed By: #### C BC ####[facility] Fppefcfvch7213 [place] [phone]. Airam Tripathi WBC 5.6 103/ul Normal 4.0-11.0 [facility] Comment on above: Performed By: #### C BC ####[facility] Asyagpirvs76[address] [place] [address]Dr. Airam Tripathi PROF 14(COMP METB)on 023 Albumin [Mass/Vol] 3.0 g/dL Critically low 3.4-5.0 [facility] Comment on above: Performed By: #### C MP ####[facility] Tfaeqxtpal4466 [place] [address]Dr. Airam Tripathi Albumin/Globulin [Mass ratio] 1.1 {ratio} Normal [facility] Comment on above: Performed By: #### C MP ####[facility] Yjqaaxpall6646 [place] [address]Dr. Airam Tripathi ALP [Catalytic activity/Vol] 102 U/L Normal 46-116 [facility] Comment on above: Performed By: #### C MP ####[facility] Jmhvnfbrgj7477 [place] [address]Dr. Airam Tripathi ALT [Catalytic activity/Vol] 20 U/L Normal 14-59 [facility] Comment on above: Performed By: #### C MP ####[facility] Fcbrmckjpf3294 [place] [address]Dr. Airam Tripathi Anion gap [Moles/Vol] 11.1 mmol/L Normal [facility] Comment on above: Performed By: #### C MP ####[facility] Djytoirtmw0040 [place] [phone]. Airam Tripathi AST [Catalytic activity/Vol] 18 U/L Normal 15-37 [facility] Comment on above: Performed By: #### C MP ####[facility] Ptqdcuqtas4723 [place] [phone]. Airam Tripathi Bilirubin [Mass/Vol] 0.2 mg/dL Normal 0.2-1.0 [facility] Comment on above: Performed By: #### C MP ####[facility] Xbskvlvngg1935 [place] [address]Dr. Airam Tripathi Calcium [Mass/Vol] 8.0 mg/dL Critically low 8.5-10.1 [facility] Comment on above: Performed By: #### C MP ####[facility] Njhhlmnagd2226 [place] [address]Dr. Airam Tripathi Chloride [Moles/Vol] 100 mmol/L Normal 98-107 [facility] Comment on above: Performed By: #### C MP ####[facility] Rhezmrohen[address] [place], [place] [address]Dr. Airam Tripathi CO2 [Moles/Vol] 24.8 mmol/L Normal 21.0-32.0 [facility] Comment on above: Performed By: #### C MP ####[facility] Cupglboylr[address] [place], [place] [address]Dr. Airam Tripathi Creatinine [Mass/Vol] 1.11 mg/dL Critically high 0.55-1.02 [facility] Comment on above: Performed By: #### C MP ####[facility] Itrsooxxeo8188 [place] [phone]. Airam Deuce EGFR-AF GUAMANIAN >60 Normal >=60 [facility] Comment on above: Performed By: #### C MP ####[facility] Lgfprvsvwt2464 [place] [phone]. Airam Tripathi EGFR-NON AF GUAMANIAN 50 mL/min/1.73m2 Critically low >=60 [facility] Comment on above: Performed By: #### C MP ####[facility] Nnwcchpfeu9676 [place] [address]Dr. Airam Tripathi Globulin (S) [Mass/Vol] 2.8 g/dL Normal [facility] Comment on above: Performed By: #### C MP ####[facility] Qanfzfhgkv[address] [place], [place] [address]Dr. Airam Tripathi Glucose [Mass/Vol] 77 mg/dL Normal 74-106 [facility] Comment on above: Performed By: #### C MP ####[facility] Rebeylcocs[address] [place], [place] [address]Dr. Airam Tripathi Potassium [Moles/Vol] 4.9 mmol/L Normal 3.5-5.1 [facility] Comment on above: Performed By: #### C MP ####[facility] Kprctmlysc[address] [place], [place] [address]Dr. Airam Tripathi Protein [Mass/Vol] 5.8 g/dL Critically low 6.4-8.2 [facility] Comment on above: Performed By: #### C MP ####[facility] Zdavgcpxhp8[address] [place], [place] [address]Dr. Airam Tripathi Sodium [Moles/Vol] 131 mmol/L Critically low 136-145 [facility] Comment on above: Performed By: #### C MP ####[facility] Rqwgrsyfwy[address] [place], [place] [address]Dr. Airam Tripathi Urea nitrogen [Mass/Vol] 33.0 mg/dL Critically high 7.0-18.0 [facility] Comment on above: Performed By: #### C MP ####[facility] Lrcqkuuthe[address] [place], [place] [address]Dr. Airam Tripathi Urea nitrogen/Creatinine [Mass ratio] 29.7 mg/mg Normal [facility] Comment on above: Performed By: #### C MP ####[facility] Fevjiusxto[address] [place], [place] [address]Dr. Airam Deuce ECHOCARDIO M/2D COMPLETEon 0 09-21-2022 ECHOCARDIO M/2D COMPLETE Normal [facility] OSMOLALITYon 09-21-2022 Osmolality [Osmolality] 282 mosm/kg Normal 275-295 [facility] Comment on above: Performed By: #### O SMO ####[facility] [address]xf[address] [place] [address]Dr. Airam Tripathi PHOSPHOLIPIDSon 09-21-2022 Phospholipids, Serum 249 mg/dL Normal 151-288 [facility] Comment on above: Performed By: #### P HOSLIP ####[facility] Mwjdtlcjdh[address] [place], [place] [address]Dr. Airam Deuce CBC AUTO DIFFon 09-20-2022 BASO # 0.0 103/ul Normal 0.0-0.1 [facility] Comment on above: Performed By: #### C BC ####[facility] Bcsmcelfmn[address] [place], [place] [address]Dr. Airam Tripathi Basophils/100 WBC (Bld) 0.5 % Normal 0.2-2.0 [facility] Comment on above: Performed By: #### C BC ####[facility] Ybrndhximw[address] [place], [place] [address]Dr. Airam Tripathi EO # 0.2 103/ul Normal 0.0-0.7 [facility] Comment on above: Performed By: #### C BC ####[facility] Ixqdyfjhby[address] [place], [place] [address]Dr. Airam Tripathi Eosinophils/100 WBC (Bld) 2.9 % Normal 0.9-7.0 [facility] Comment on above: Performed By: #### C BC ####[facility] Ehcwnwramb[address] [place], [place] [address]Dr. Airam Tripathi Erythrocyte distribution width (RBC) [Ratio] 15.4 % Critically high 11.0-15.0 [facility] Comment on above: Performed By: #### C BC ####[facility] Wtdybrgmzy88[address] [place], [place] [address]Dr. Airam Tripathi Hematocrit (Bld) [Volume fraction] 26.3 % Critically low 36.0-48.0 [facility] Comment on above: Performed By: #### C BC ####[facility] Xerfusgoaf[address] [place], [place] [address]Dr. Airam Tripathi Hemoglobin (Bld) [Mass/Vol] 8.2 g/dL Critically low 12.0-16.0 [facility] Comment on above: Performed By: #### C BC ####[facility] S[address]lh[address] [place] [address]DrKianna Tripathi IG # 0.03 10e3/ul Normal 0.00-0.03 [facility] Comment on above: Performed By: #### C BC ####[facility] Sp[address]bmy[address] [place] [address]DrKianna Tripathi IG % 0.4 % Normal 0.0-0.5 [facility] Comment on above: Performed By: #### C BC ####[facility] Krpzaddcln[address] [place], [place] [address]DrKianna Tripathi LYMPH # 1.9 103/ul Normal 1.2-3.8 [facility] Comment on above: Performed By: #### C BC ####[facility] Sz[address]yywphz[address] [place] [address]DrKianna Tripathi Lymphocytes/100 WBC (Bld) 23.0 % Normal 20.5-60.0 [facility] Comment on above: Performed By: #### C BC ####[facility] Allrbjxenp[address] [place], [place] [address]DrKianna Tripathi MANUAL DIFF REQ NO Normal [facility] Comment on above: Performed By: #### C BC ####[facility] Nimpedtzzb[address] [place] [address]DrKianna Tripathi MCH (RBC) [Entitic mass] 28.5 pg Normal 26.7-34.0 [facility] Comment on above: Performed By: #### C BC ####[facility] Gndfirrpxa[address] [place] [address]DrKianna Tripathi MCHC (RBC) [Mass/Vol] 31.2 g/dL Normal 29.9-35.2 [facility] Comment on above: Performed By: #### C BC ####[facility] [address]jirsyrudn[address] [place] [address]DrKianna Tripathi MCV (RBC) [Entitic vol] 91.3 fL Normal 81.0-99.0 [facility] Comment on above: Performed By: #### C BC ####[facility] O[address]kgllvw[address] [place] [address]Dr. Airam Tripathi MONO # 0.7 103/ul Normal 0.3-0.8 [facility] Comment on above: Performed By: #### C BC ####[facility] D[address]ysfkubv[address] [place] [address]Dr. Airam Tripathi Monocytes/100 WBC (Bld) 7.7 % Normal 1.7-12.0 [facility] Comment on above: Performed By: #### C BC ####[facility] Wdfppcwnfl256[address] [place], [place] [address]Dr. Airam Tripathi NEUT # 5.5 103/ul Normal 1.4-6.5 [facility] Comment on above: Performed By: #### C BC ####[facility] Zjiucnqrkq[address] [place], [place] [address]Dr. Airam Tripathi Neutrophils/100 WBC (Bld) 65.5 % Normal 43.0-75.0 [facility] Comment on above: Performed By: #### C BC ####[facility] Wbvflhkiaf108[address] [place], [place] [address]Dr. Airam Tripathi Platelet mean volume (Bld) [Entitic vol] 9.1 fL Critically low 9.5-13.5 [facility] Comment on above: Performed By: #### C BC ####[facility] Lnfynidvuz264[address] [place], [place] [address]Dr. Airam Tripathi PLT 258 103/ul Normal 150-450 [facility] Comment on above: Performed By: #### C BC ####[facility] [address]qkrsldyu[address] [place], [place] [id number]. Airam Tripathi RBC 2.88 106/ul Critically low 4.20-5.40 [facility] Comment on above: Performed By: #### C BC ####[facility] D[address]ugt[address] [place] [address]Dr. Airam Deuce WBC 8.4 103/ul Normal 4.0-11.0 [facility] Comment on above: Performed By: #### C BC ####[facility] Q[address]ieoowlo[address] [place] [address]Dr. Airam Tripathi PROF CHEM 8 (BAS METB)on Anion gap [Moles/Vol] 10.3 mmol/L Normal [facility] Comment on above: Performed By: #### B MP ####[facility] Nryfhaufiy280[address] [place], [place] [address]Dr. Airam Tripathi Calcium [Mass/Vol] 7.9 mg/dL Critically low 8.5-10.1 [facility] Comment on above: Performed By: #### B MP ####[facility] Vichnylqih[address] [place], [place] [address]Dr. Airam Tripathi Chloride [Moles/Vol] 98 mmol/L Normal 98-107 [facility] Comment on above: Performed By: #### B MP ####[facility] Fdducgiuzi437[address] [place], [place] [address]Dr. Airam Tripathi CO2 [Moles/Vol] 27.5 mmol/L Normal 21.0-32.0 [facility] Comment on above: Performed By: #### B MP ####[facility] Zjezefeqaz307[address] [place], [place] [address]Dr. Airam Tripathi Creatinine [Mass/Vol] 1.44 mg/dL Critically high 0.55-1.02 [facility] Comment on above: Performed By: #### B MP ####[facility] Qvvveryszn196[address] [place], [place] [address]Dr. Airam Tripathi EGFR-AF GUAMANIAN 45 mL/min/1.73m2 Critically low >=60 [facility] Comment on above: Performed By: #### B MP ####[facility] Ihxyvcyjeb[address] [place], [place] [address]Dr. Airam Tripathi EGFR-NON AF GUAMANIAN 37 mL/min/1.73m2 Critically low >=60 [facility] Comment on above: Performed By: #### B MP ####[facility] Sjvazfmvgq[address] [place], [place] [address]Dr. Airam Tripathi Glucose [Mass/Vol] 91 mg/dL Normal 74-106 [facility] Comment on above: Performed By: #### B MP ####[facility] Rcsmivdzwl[address] [place], [place] [address]Dr. Airam Tripathi Potassium [Moles/Vol] 4.8 mmol/L Normal 3.5-5.1 [facility] Comment on above: Performed By: #### B MP ####[facility] Mxaoiojgev[address] [place], [place] [address]Dr. Airam Tripathi Sodium [Moles/Vol] 131 mmol/L Critically low 136-145 [facility] Comment on above: Performed By: #### B MP ####[facility] Yrfnrsnxhw724[address] [place], [place] [address]Dr. Airam Tripathi Urea nitrogen [Mass/Vol] 40.0 mg/dL Critically high 7.0-18.0 [facility] Comment on above: Performed By: #### B MP ####[facility] Ysvndkhhib5[address] [place], [place] [address]Dr. Airam Tripathi Urea nitrogen/Creatinine [Mass ratio] 27.8 mg/mg Normal [facility] Comment on above: Performed By: #### B MP ####[facility] Bhsubxpjsb8699[address] [place], [place] [address]Dr. Airam Tripathi Anion gap [Moles/Vol] 10.6 mmol/L Normal [facility] Comment on above: Performed By: #### B MP ####[facility] Enlyqyxiqu[address] [place], [place] [address]Dr. Airam Tripathi Calcium [Mass/Vol] 7.9 mg/dL Critically low 8.5-10.1 [facility] Comment on above: Performed By: #### B MP ####[facility] Mavitkdvkl[address] [place], [place] [address]Dr. Airam Tripathi Chloride [Moles/Vol] 101 mmol/L Normal 98-107 [facility] Comment on above: Performed By: #### B MP ####[facility] Yvaudsbdkq[address] [place], [place] [address]Dr. Airam Tripathi CO2 [Moles/Vol] 27.4 mmol/L Normal 21.0-32.0 [facility] Comment on above: Performed By: #### B MP ####[facility] Xjmckxydid065[address] [place], [place] [address]Dr. Airam Tripathi Creatinine [Mass/Vol] 1.35 mg/dL Critically high 0.55-1.02 [facility] Comment on above: Performed By: #### B MP ####[facility] Vrhjwegevg[address] [place], [place] [address]Dr. Airam Tripathi EGFR-AF GUAMANIAN 48 mL/min/1.73m2 Critically low >=60 [facility] Comment on above: Performed By: #### B MP ####[facility] Epzqsxprhe[address]19[address] [place], [place] [address]Dr. Airam Tirpathi EGFR-NON AF GUAMANIAN 40 mL/min/1.73m2 Critically low >=60 [facility] Comment on above: Performed By: #### B MP ####[facility] Brimzdbnrk374[address] [place], [place] [address]Dr. Airam Tripathi Glucose [Mass/Vol] 114 mg/dL Critically high 74-106 [facility] Comment on above: Performed By: #### B MP ####[facility] Dxotalbong[address] [place], [place] [address]Dr. Airam Tripathi Potassium [Moles/Vol] 5.0 mmol/L Normal 3.5-5.1 [facility] Comment on above: Performed By: #### B MP ####[facility] Siptiofruo[address] [place], [place] [address]Dr. Airam Tripathi Sodium [Moles/Vol] 134 mmol/L Critically low 136-145 [facility] Comment on above: Performed By: #### B MP ####[facility] Lahvunzlze[address] [place], [place] [address]Dr. Airam Tripathi Urea nitrogen [Mass/Vol] 40.0 mg/dL Critically high 7.0-18.0 [facility] Comment on above: Performed By: #### B MP ####[facility] Imhomugglq256[address] [place], [place] [address]Dr. Airam Tripathi Urea nitrogen/Creatinine [Mass ratio] 29.6 mg/mg Normal [facility] Comment on above: Performed By: #### B MP ####[facility] Cvhalfisib5[address] [place], [place] [address]Dr. Airam Tripathi PTH INTACTon 09-20-2022 PTH, Intact 104 pg/mL Critically high 15-65 [facility] Comment on above: Performed By: #### P THINT ####[facility] Qoxczjvlwp[address] [place], [place] [address]Dr. Airam Tripathi BNPon 09-19-2022 Natriuretic peptide B (Bld) [Mass/Vol] 1272.0 pg/mL Critically high <=900.0 [facility] Comment on above: Performed By: #### H STROPN, TSH, K, BNP ####[facility] Ezeujkqcgh[address] [place], [place] [address]Dr. Airam Tripathi CBC AUTO DIFFon 09-19-2022 BASO # 0.0 103/ul Normal 0.0-0.1 [facility] Comment on above: Performed By: #### C BC ####[facility] Rzfchwnkuy[address] [place], [place] [address]Dr. Airam Tripathi Basophils/100 WBC (Bld) 0.5 % Normal 0.2-2.0 [facility] Comment on above: Performed By: #### C BC ####[facility] Gxvhernlel346[address] [place], [place] [address]Dr. Airam Tripathi EO # 0.2 103/ul Normal 0.0-0.7 [facility] Comment on above: Performed By: #### C BC ####[facility] Ivgwsphsjd9[address] [place], [place] [address]Dr. Airam Tripathi Eosinophils/100 WBC (Bld) 2.6 % Normal 0.9-7.0 [facility] Comment on above: Performed By: #### C BC ####[facility] Inctltmlia126[address] [place], [place] [address]Dr. Airam Tripathi Erythrocyte distribution width (RBC) [Ratio] 15.5 % Critically high 11.0-15.0 [facility] Comment on above: Performed By: #### C BC ####[facility] [address] [place] [address]Dr. Airam Tripathi Hematocrit (Bld) [Volume fraction] 31.1 % Critically low 36.0-48.0 [facility] Comment on above: Performed By: #### C BC ####[facility] Amxozjyopz[address] [place] [address]Dr. Airam Tripathi Hemoglobin (Bld) [Mass/Vol] 9.6 g/dL Critically low 12.0-16.0 [facility] Comment on above: Performed By: #### C BC ####[facility] Ljpxrcauxx[address] [place], [place] [address]Dr. Airam Tripathi IG # 0.04 10e3/ul Critically high 0.00-0.03 [facility] Comment on above: Performed By: #### C BC ####[facility] Biuurbgjhw[address] [place], [place] [address]Dr. Airam Tripathi IG % 0.5 % Normal 0.0-0.5 [facility] Comment on above: Performed By: #### C BC ####[facility] Givfrtbgun[address] [place], [place] [address]DrKianna Tripathi LYMPH # 1.0 103/ul Critically low 1.2-3.8 [facility] Comment on above: Performed By: #### C BC ####[facility] Ldfwrgomen8[address] [place], [place] [address]DrKianna Tripathi Lymphocytes/100 WBC (Bld) 12.0 % Critically low 20.5-60.0 [facility] Comment on above: Performed By: #### C BC ####[facility] Cpnqkdfjlp[address] [place], [place] [address]DrKianna Tripathi MANUAL DIFF REQ NO Normal [facility] Comment on above: Performed By: #### C BC ####[facility] Sifvdkijuk[address] [place], [place] [address]DrKianna Tripathi MCH (RBC) [Entitic mass] 28.2 pg Normal 26.7-34.0 [facility] Comment on above: Performed By: #### C BC ####[facility] In[address]edsesr[address] [place] [id number]. Selenaneil Tripathi MCHC (RBC) [Mass/Vol] 30.9 g/dL Normal 29.9-35.2 [facility] Comment on above: Performed By: #### C BC ####[facility] Gqsmkprilz[address] [place] [id number]. Airam Tripathi MCV (RBC) [Entitic vol] 91.5 fL Normal 81.0-99.0 [facility] Comment on above: Performed By: #### C BC ####[facility] Ojwpfamgmu5[address] [place], [place] [address]Dr. Airam Tripathi MONO # 0.5 103/ul Normal 0.3-0.8 [facility] Comment on above: Performed By: #### C BC ####[facility] Unrlezvpet[address] [place], [place] [address]Dr. Airam Tripathi Monocytes/100 WBC (Bld) 6.4 % Normal 1.7-12.0 [facility] Comment on above: Performed By: #### C BC ####[facility] Qudqkuvyju[address] [place], [place] [address]Dr. Airam Tripathi NEUT # 6.4 103/ul Normal 1.4-6.5 [facility] Comment on above: Performed By: #### C BC ####[facility] Wysegnlzjv[address] [place], [place] [address]Dr. Airam Tripathi Neutrophils/100 WBC (Bld) 78.0 % Critically high 43.0-75.0 [facility] Comment on above: Performed By: #### C BC ####[facility] Hqyckftkuk[address] [place], [place] [address]Dr. Airam Tripathi Platelet mean volume (Bld) [Entitic vol] 9.1 fL Critically low 9.5-13.5 [facility] Comment on above: Performed By: #### C BC ####[facility] Nnojwpewpr[address] [place], [place] [address]Dr. Airam Tripathi PLT 318 103/ul Normal 150-450 [facility] Comment on above: Performed By: #### C BC ####[facility] [address] [place], [place] [address]Qi. Airam Tripathi RBC 3.40 106/ul Critically low 4.20-5.40 [facility] Comment on above: Performed By: #### C BC ####[facility] Ihovvujlru[address] [place], [place] [address]Bx. Airam Tripathi WBC 8.2 103/ul Normal 4.0-11.0 [facility] Comment on above: Performed By: #### C BC ####[facility] Xczijcbnos04[address] [place], [place] [address]Vm. Airam Tripathi Covid-19 PCR (CVDTBH)on 08-25 SARS-CoV-2 (COVID-19) RNA MIKE+probe Ql (Unsp spec) Not detected Normal NOT DETECTED [facility] Comment on above: Result Comment: When [...] for this test is supported by the Global Position System Technician of Health and Human Service's declaration that [...] be used). Performed By: #### C VDTBH ####[facility] Otkkfqccqg[address] [place], [place] [address]Sc. Airam Tripathi LACTATE/LACTIC ACIDon 2022 Lactate [Moles/Vol] 0.4 mmol/L Normal 0.4-2.0 [facility] Comment on above: Performed By: #### L ACT ####[facility] [address]ysbt[address] [place] [address]Dr. Airam Tripathi POTASSIUMon 09-19-2022 Potassium [Moles/Vol] 6.3 mmol/L Critically high 3.5-5.1 [facility] Comment on above: Performed By: #### H STROPN, TSH, K, BNP ####[facility] Eqasanpvdd[address] [place] [address]Dr. Airam Tripathi PROF 14(COMP METB)on 023 Albumin [Mass/Vol] 3.5 g/dL Normal 3.4-5.0 [facility] Comment on above: Performed By: #### C MP ####[facility] Kxbeezkrmm[address] [place], [place] [address]Dr. Airam Tripathi Albumin/Globulin [Mass ratio] 1.1 {ratio} Normal [facility] Comment on above: Performed By: #### C MP ####[facility] Smzdvwfffh[address] [place], [place] [address]Dr. Airam Tripathi ALP [Catalytic activity/Vol] 113 U/L Normal 46-116 [facility] Comment on above: Performed By: #### C MP ####[facility] Upbrpabegg[address] [place], [place] [address]Dr. Airam Tripathi ALT [Catalytic activity/Vol] 26 U/L Normal 14-59 [facility] Comment on above: Performed By: #### C MP ####[facility] Ubdwgkvron[address] [place], [place] [address]Dr. Airam Tripathi Anion gap [Moles/Vol] 11.5 mmol/L Normal [facility] Comment on above: Performed By: #### C MP ####[facility] Hcecrupepg[address] [place], [place] [address]Dr. Airam Tripathi AST [Catalytic activity/Vol] 24 U/L Normal 15-37 [facility] Comment on above: Performed By: #### C MP ####[facility] V[address]onssattz[address] [place], [place] [address]Dr. Airam Tripathi Bilirubin [Mass/Vol] 0.3 mg/dL Normal 0.2-1.0 [facility] Comment on above: Performed By: #### C MP ####[facility] Pifvzbmptg[address] [place] [address]Dr. Airam Tripathi Calcium [Mass/Vol] 8.9 mg/dL Normal 8.5-10.1 [facility] Comment on above: Performed By: #### C MP ####[facility] Kigxkxfjon62[address] [place], [place] [address]Dr. Airam Tripathi Chloride [Moles/Vol] 103 mmol/L Normal 98-107 [facility] Comment on above: Performed By: #### C MP ####[facility] Hscpawcdlv[address] [place], [place] [address]Dr. Airam Tripathi CO2 [Moles/Vol] 27.8 mmol/L Normal 21.0-32.0 [facility] Comment on above: Performed By: #### C MP ####[facility] Obtihyeebo[address] [place], [place] [address]Dr. Airam Tripathi Creatinine [Mass/Vol] 1.28 mg/dL Critically high 0.55-1.02 [facility] Comment on above: Performed By: #### C MP ####[facility] Xbnsxruowg[address] [place], [place] [address]Dr. Airam Tripathi EGFR-AF GUAMANIAN 52 mL/min/1.73m2 Critically low >=60 [facility] Comment on above: Performed By: #### C MP ####[facility] Inwhoxyeif[address] [place], [place] [address]Dr. Airam Tripathi EGFR-NON AF GUAMANIAN 43 mL/min/1.73m2 Critically low >=60 [facility] Comment on above: Performed By: #### C MP ####[facility] Vbgbnypihv[address] [place], [place] [address]Dr. Airam Tripathi Globulin (S) [Mass/Vol] 3.2 g/dL Normal [facility] Comment on above: Performed By: #### C MP ####[facility] Isukqyobad[address] [place], [place] [address]Dr. Airam Tripathi Glucose [Mass/Vol] 95 mg/dL Normal 74-106 [facility] Comment on above: Performed By: #### C MP ####[facility] Z[address]bmejrfz[address] [place] [id number]. Airam Tripathi Potassium [Moles/Vol] 6.3 mmol/L Critically high 3.5-5.1 [facility] Comment on above: Performed By: #### C MP ####[facility] T[address]ruwudhbq[address] [place] [id number]. Airam Tripathi Protein [Mass/Vol] 6.7 g/dL Normal 6.4-8.2 [facility] Comment on above: Performed By: #### C MP ####[facility] Edstxarnbl[address] [place], [place] [address]Dr. Airam Tripathi Sodium [Moles/Vol] 135 mmol/L Critically low 136-145 Th e [facility] Comment on above: Performed By: #### C MP ####[facility] Bywmnqwhcv[address] [place], [place] [address]Dr. Airam Tripathi Urea nitrogen [Mass/Vol] 42.0 mg/dL Critically high 7.0-18.0 [facility] Comment on above: Performed By: #### C MP ####[facility] [address]acbjbgrho[address] [place], [place] [address]Dr. Airam Tripathi Urea nitrogen/Creatinine [Mass ratio] 32.8 mg/mg Normal [facility] Comment on above: Performed By: #### C MP ####[facility] Pcgnwfmqyt[address] [place], [place] [address]Dr. Airam Tripathi TROPONIN, HIGH SENSITIVITYon 09-19-2022 HSTROP 7.1 pg/mL Normal 4.0-51.3 [facility] Comment on above: Result Comment: CUT- OFF POINTS HAVE BEEN ESTABLISHED BASED ON THE FOURTH UNIVERSAL DEFINITIONS OF MYOCARDIALINFARCTION. THE UPPER REFERENCE LIMIT (URL) OF TROPONIN, DEFINED THE 99TH PERCENTILE OFcTnI DISTRIBUTION IN A REFERENCE POPULATION, HAS BEEN CONFIRMED THE DECISION THRESHOLDFOR AK DIAGNOSIS. Performed By: #### H STROPN, TSH, K, BNP ####[facility] [address] [place] [address]Dr. Airam Tripathi TSHon 09-19-2022 TSH 0.028 uIU/mL Critically low 0.358-3.74 0 [facility] Comment on above: Performed By: #### H STROPN, TSH, K, BNP ####[facility] [address]rzedfkb[address] [place], [place] [address]Dr. Airam Tripathi UA RANDOMon 09-19-2022 Bilirubin Ql (U) Negative Normal NEGATIVE [facility] Comment on above: Performed By: #### U A ####[facility] Ckxejqglzr[address] [place], [place] [address]Dr. Airam Tripathi Clarity (U) CLEAR Normal CLEAR [facility] Comment on above: Performed By: #### U A ####[facility] Kpvydrrzhc[address] [place], [place] [address]Dr. Airam Tripathi Color (U) LT. YELLOW Normal YELLOW [facility] Comment on above: Performed By: #### U A ####[facility] Hcfaddoccb[address] [place], [place] [address]Dr. Airam Tripathi Glucose Ql (U) Negative Normal NEGATIVE [facility] Comment on above: Performed By: #### U A ####[facility] Rbfbfwsroa[address] [place], [place] [address]Dr. Airam Tripathi Hemoglobin Ql (U) Negative Normal NEGATIVE [facility] Comment on above: Performed By: #### U A ####[facility] Fhudupejmg[address] [place], [place] [address]Dr. Airam Tripathi Ketones Ql (U) Negative Normal NEGATIVE [facility] Comment on above: Performed By: #### U A ####[facility] Efdcnucuow[address] [place], [place] [address]Dr. Airam Tripathi LEUKOCYTES TRACE Abnormal NEGATIVE [facility] Comment on above: Performed By: #### U A ####[facility] Ellchtxxog[address] [place], [place] [address]Dr. Airam Tripathi Nitrite Ql (U) Negative Normal NEGATIVE [facility] Comment on above: Performed By: #### U A ####[facility] Biedfrwdcf[address] [place], [place] [address]Dr. Airam Tripathi pH (U) 5.5 [pH] Normal 5-9 [facility] Comment on above: Performed By: #### U A ####[facility] Bbnfnbmezw[address] [place] [address]Dr. Airam Tripathi SPEC GRAVITY 1.010 Normal 1.005-<=1. 025 [facility] Comment on above: Performed By: #### U A ####[facility] Dkvrnswrzx6[address] [place], [place] [address]Dr. Airam Tripathi UA PROTEIN Negative Normal NEGATIVE/ TRACE [facility] Comment on above: Performed By: #### U A ####[facility] Nypflbqgzb[address] [place], [place] [address]Dr. Airam Tripathi Urobilinogen Qn (U) 0.2 {Ligia'U}/dL Normal 0.2 - 1. 0 [facility] Comment on above: Performed By: #### U A ####[facility] Kabwtmvabp778[address] [place], [place] [address]Dr. Airam Tripathi URIC ACID SERUMon 09-19-2022 Urate [Mass/Vol] 6.9 mg/dL Critically high 2.6-6.0 [facility] Comment on above: Performed By: #### U TRESSA ####[facility] Nhptjnuxvx[address] [place], [place] [address]Dr. Airam Tripathi URINE T PROTEIN CREAT RATIOo n 09-19-2022 UR TOTAL PROTEIN <6.0 Normal <=12.0 [facility] Comment on above: Performed By: #### U RTPCR ####[facility] Hzqfsktdts317[address] [place], [place] [address]Dr. Airam Tripathi URINE CREAT 15.12 mg/dL Critically low 20.00-300. 00 [facility] Comment on above: Performed By: #### U RTPCR ####[facility] Syclvxtcwp[address] [place], [place] [address]Dr. Airam Tripathi VITAMIN D 25 OHon 09-19-2022 VIT D 25-OH 75.9 ng/mL Normal [facility] Comment on above: Performed By: #### V ITAD ####[facility] Oknkivosqp[address] [place], [place] [address]Dr. Airam Tripathi VIT D RANGES SEE BELOW Normal [facility] Comment on above: Result Comment: <20 ng/mL Vit D deficient 20 - <30 ng/mL Vit D insufficient 30 - 100 ng/mL Vit D sufficient >100 ng/mL Potential Toxicity Performed By: #### V ITAD ####[facility] Rjmeiwbwdl159[address] [place], [place] [address]Dr. Airam Tripathi OSMOLALITYon 09-14-2022 Osmolality [Osmolality] 272 mosm/kg Critically low 275-295 [facility] Comment on above: Performed By: #### O SMO ####[facility] Cutlejbiwa[address] [place], [place] [address]Dr. Airam Tripathi CBC AUTO DIFFon 09-12-2022 BASO # 0.0 103/ul Normal 0.0-0.1 [facility] Comment on above: Performed By: #### C BC ####[facility] Ywwngvvmsq[address] [place], [place] [address]Dr. Airam Tripathi Basophils/100 WBC (Bld) 0.5 % Normal 0.2-2.0 [facility] Comment on above: Performed By: #### C BC ####[facility] Lknopiifrq047[address] [place], [place] [address]Dr. Airam Tripathi EO # 0.2 103/ul Normal 0.0-0.7 [facility] Comment on above: Performed By: #### C BC ####[facility] Dsogdghdss976[address] [place], [place] [address]Dr. Airam Tripathi Eosinophils/100 WBC (Bld) 2.4 % Normal 0.9-7.0 [facility] Comment on above: Performed By: #### C BC ####[facility] Oxmpjkqkjq293[address] [place], [place] [address]Dr. Airam Tripathi Erythrocyte distribution width (RBC) [Ratio] 14.8 % Normal 11.0-15.0 [facility] Comment on above: Performed By: #### C BC ####[facility] Pcxbgzfliq0219[address] [place], [place] [address]Dr. Airam Tripathi Hematocrit (Bld) [Volume fraction] 32.6 % Critically low 36.0-48.0 [facility] Comment on above: Performed By: #### C BC ####[facility] H[address]jcqlivj[address] [place] [address]Dr. Airam Tripathi Hemoglobin (Bld) [Mass/Vol] 10.1 g/dL Critically low 12.0-16.0 [facility] Comment on above: Performed By: #### C BC ####[facility] Rtdrszoylf[address] [place] [address]Dr. Airam Tripathi IG # 0.05 10e3/ul Critically high 0.00-0.03 [facility] Comment on above: Performed By: #### C BC ####[facility] Glpgthosri911[address] [place], [place] [address]Dr. Airam Tripathi IG % 0.7 % Critically high 0.0-0.5 [facility] Comment on above: Performed By: #### C BC ####[facility] Ttydmkbnaq326[address] [place], [place] [address]Dr. Airam Tripathi LYMPH # 1.9 103/ul Normal 1.2-3.8 [facility] Comment on above: Performed By: #### C BC ####[facility] Zpjgvtspri644[address] [place], [place] [address]Dr. Airam Tripathi Lymphocytes/100 WBC (Bld) 24.7 % Normal 20.5-60.0 [facility] Comment on above: Performed By: #### C BC ####[facility] Wkjvzokqub[address] [place], [place] [address]Dr. Airam Tripathi MANUAL DIFF REQ NO Normal [facility] Comment on above: Performed By: #### C BC ####[facility] Qgwvijdolj130[address] [place], [place] [address]Dr. Airam Tripathi MCH (RBC) [Entitic mass] 28.0 pg Normal 26.7-34.0 [facility] Comment on above: Performed By: #### C BC ####[facility] Gsfscdwsll044[address] [place], [place] [address]Dr. Airam Tripathi MCHC (RBC) [Mass/Vol] 31.0 g/dL Normal 29.9-35.2 [facility] Comment on above: Performed By: #### C BC ####[facility] [address]cjnpi[address] [place] [id number]. Airam Deuce MCV (RBC) [Entitic vol] 90.3 fL Normal 81.0-99.0 [facility] Comment on above: Performed By: #### C BC ####[facility] Us[address]fupbl[address] [place] [id number]. Airam Deuce MONO # 0.5 103/ul Normal 0.3-0.8 [facility] Comment on above: Performed By: #### C BC ####[facility] Ypvkvhmamo0375 [place] [id number]. Selenaneil Tripathi Monocytes/100 WBC (Bld) 6.0 % Normal 1.7-12.0 [facility] Comment on above: Performed By: #### C BC ####[facility] F[address]hbwmh[address] [place], [place] [address]Dr. Selenaneil Deuce NEUT # 5.0 103/ul Normal 1.4-6.5 [facility] Comment on above: Performed By: #### C BC ####[facility] Menzztfegp[address] [place], [place] [address]Dr. Selenaneil Tripathi Neutrophils/100 WBC (Bld) 65.7 % Normal 43.0-75.0 [facility] Comment on above: Performed By: #### C BC ####[facility] Cvutuulesl[address] [place], [place] [address]Dr. Airam Tripathi Platelet mean volume (Bld) [Entitic vol] 9.5 fL Normal 9.5-13.5 [facility] Comment on above: Performed By: #### C BC ####[facility] Krggwjjfuo[address] [place], [place] [id number]. Airam Tripathi PLT 307 103/ul Normal 150-450 [facility] Comment on above: Performed By: #### C BC ####[facility] F[address]onrrbqr3[address] [place] [phone]. Airam Tripathi RBC 3.61 106/ul Critically low 4.20-5.40 [facility] Comment on above: Performed By: #### C BC ####[facility] Ntrxmmoxnk18[address] [place] [address]Dr. Airam Tripathi WBC 7.5 103/ul Normal 4.0-11.0 [facility] Comment on above: Performed By: #### C BC ####[facility] Wpkeypelvp[address] [place] [address]Dr. Airam Tripathi PROF 14(COMP METB)on 023 Albumin [Mass/Vol] 3.5 g/dL Normal 3.4-5.0 [facility] Comment on above: Performed By: #### C MP ####[facility] Ktrkvdkbol8[address] [place] [address]Dr. Airam Tripathi Albumin/Globulin [Mass ratio] 1.1 {ratio} Normal [facility] Comment on above: Performed By: #### C MP ####[facility] Ecywdkibcj35[address] [place], [place] [address]Dr. Airam Tripathi ALP [Catalytic activity/Vol] 126 U/L Critically high 46-116 [facility] Comment on above: Performed By: #### C MP ####[facility] Mkqeoyehod9[address] [place], [place] [address]Dr. Selenaneil Tripathi ALT [Catalytic activity/Vol] 18 U/L Normal 14-59 [facility] Comment on above: Performed By: #### C MP ####[facility] Ckjdwxhozs06[address] [place] [address]Dr. Airam Tripathi Anion gap [Moles/Vol] 11.1 mmol/L Normal [facility] Comment on above: Performed By: #### C MP ####[facility] Xxoikofgjy89[address] [place] [address]Dr. Airam Tripathi AST [Catalytic activity/Vol] 26 U/L Normal 15-37 [facility] Comment on above: Performed By: #### C MP ####[facility] Znguvicwno2738 [place] [address]Dr. Airam Tripathi Bilirubin [Mass/Vol] 0.3 mg/dL Normal 0.2-1.0 [facility] Comment on above: Performed By: #### C MP ####[facility] Lbhpipvzzw0376 [place] [address]Dr. Airam Tripathi Calcium [Mass/Vol] 8.5 mg/dL Normal 8.5-10.1 [facility] Comment on above: Performed By: #### C MP ####[facility] Lojtlbycoo[address] [place], [place] [address]Dr. Airam Tripathi Chloride [Moles/Vol] 98 mmol/L Normal 98-107 [facility] Comment on above: Performed By: #### C MP ####[facility] Wmcdaikcra[address] [place], [place] [address]Dr. Airam Tripathi CO2 [Moles/Vol] 23.9 mmol/L Normal 21.0-32.0 [facility] Comment on above: Performed By: #### C MP ####[facility] Nkvzmaroaz[address] [place], [place] [address]Dr. Airam Tripathi Creatinine [Mass/Vol] 1.40 mg/dL Critically high 0.55-1.02 [facility] Comment on above: Performed By: #### C MP ####[facility] Anctffiwzf7[address] [place], [place] [address]Dr. Airam Tripathi EGFR-AF GUAMANIAN 46 mL/min/1.73m2 Critically low >=60 [facility] Comment on above: Performed By: #### C MP ####[facility] Tgjqzvspkh8[address] [place], [place] [address]Dr. Airam Tripathi EGFR-NON AF GUAMANIAN 38 mL/min/1.73m2 Critically low >=60 [facility] Comment on above: Performed By: #### C MP ####[facility] Uzmuncilot[address] [place], [place] [address]Dr. Airam Tripathi Globulin (S) [Mass/Vol] 3.3 g/dL Normal [facility] Comment on above: Performed By: #### C MP ####[facility] Fcydsnvwuq709[address] [place], [place] [address]Dr. Airam Tripathi Glucose [Mass/Vol] 72 mg/dL Critically low 74-106 [facility] Comment on above: Performed By: #### C MP ####[facility] Iofulqjhgh0523 [place] [address]Dr. Airam Triapthi Potassium [Moles/Vol] 5.0 mmol/L Normal 3.5-5.1 [facility] Comment on above: Performed By: #### C MP ####[facility] Oiycliagkj1624 [place] [address]Dr. Airam Tripathi Protein [Mass/Vol] 6.8 g/dL Normal 6.4-8.2 [facility] Comment on above: Performed By: #### C MP ####[facility] Vnvbpeqwqy[address] [place], [place] [address]Dr. Airam Tripathi Sodium [Moles/Vol] 128 mmol/L Critically low 136-145 [facility] Comment on above: Performed By: #### C MP ####[facility] Gkzbpsusml488[address] [place], [place] [address]Dr. Airam Tripathi Urea nitrogen [Mass/Vol] 27.0 mg/dL Critically high 7.0-18.0 [facility] Comment on above: Performed By: #### C MP ####[facility] Lusgjzhtfg[address] [place], [place] [address]Dr. Airam Tripathi Urea nitrogen/Creatinine [Mass ratio] 19.3 mg/mg Normal [facility] Comment on above: Performed By: #### C MP ####[facility] Fxczlejvil142[address] [place], [place] [address]Dr. Airam Tripathi OSMOLALITYon 09-10-2022 Osmolality [Osmolality] 275 mosm/kg Normal 275-295 [facility] Comment on above: Performed By: #### O SMO ####[facility] Qwxuadiazr359[address] [place], [place] [address]Dr. Airam Tripathi CBC AUTO DIFFon 09-08-2022 BASO # 0.0 103/ul Normal 0.0-0.1 [facility] Comment on above: Performed By: #### C BC ####[facility] Egeoghwoan3525[address] [place], [place] [address]Dr. Airam Tripathi Basophils/100 WBC (Bld) 0.5 % Normal 0.2-2.0 [facility] Comment on above: Performed By: #### C BC ####[facility] Dddebdbygg[address] [place] [address]Dr. Airam Tripathi EO # 0.1 103/ul Normal 0.0-0.7 [facility] Comment on above: Performed By: #### C BC ####[facility] Xavwldzbmz[address] [place], [place] [address]Dr. Airam Tripathi Eosinophils/100 WBC (Bld) 1.7 % Normal 0.9-7.0 [facility] Comment on above: Performed By: #### C BC ####[facility] Odssxmxuyo030[address] [place], [place] [address]Dr. Airam Tripathi Erythrocyte distribution width (RBC) [Ratio] 14.7 % Normal 11.0-15.0 [facility] Comment on above: Performed By: #### C BC ####[facility] Lfajhjxrsf[address] [place], [place] [address]Dr. Selenaneil Tripathi Hematocrit (Bld) [Volume fraction] 30.3 % Critically low 36.0-48.0 [facility] Comment on above: Performed By: #### C BC ####[facility] Mrjeursdnr133[address] [place], [place] [address]Dr. Airam Tripathi Hemoglobin (Bld) [Mass/Vol] 9.3 g/dL Critically low 12.0-16.0 [facility] Comment on above: Performed By: #### C BC ####[facility] Bwqaopexel[address] [place], [place] [address]Dr. Airam Tripathi IG # 0.03 10e3/ul Normal 0.00-0.03 [facility] Comment on above: Performed By: #### C BC ####[facility] Byavpexerp240[address] [place], [place] [address]Dr. Selenaneil Tripathi IG % 0.5 % Normal 0.0-0.5 [facility] Comment on above: Performed By: #### C BC ####[facility] Eindpieotr7425[address] [place], [place] [address]DrKianna Tripathi LYMPH # 0.9 103/ul Critically low 1.2-3.8 [facility] Comment on above: Performed By: #### C BC ####[facility] Ibolsyjavt[address] [place] [address]Dr. Airam Deuce Lymphocytes/100 WBC (Bld) 13.6 % Critically low 20.5-60.0 [facility] Comment on above: Performed By: #### C BC ####[facility] Fdarcwumcl75[address] [place] [address]DrKianna Tripathi MANUAL DIFF REQ NO Normal [facility] Comment on above: Performed By: #### C BC ####[facility] Mdxurvwwld2972 [place] [phone]. Airam Tripathi MCH (RBC) [Entitic mass] 27.4 pg Normal 26.7-34.0 [facility] Comment on above: Performed By: #### C BC ####[facility] Fknbzgahyr[address] [place], [place] [address]Dr. Airam Tripathi MCHC (RBC) [Mass/Vol] 30.7 g/dL Normal 29.9-35.2 [facility] Comment on above: Performed By: #### C BC ####[facility] Yqzrursinx7[address] [place], [place] [address]DrKianna Tripathi MCV (RBC) [Entitic vol] 89.4 fL Normal 81.0-99.0 [facility] Comment on above: Performed By: #### C BC ####[facility] Lcydugzqnh[address] [place], [place] [address]Dr. Airam Tripathi MONO # 0.5 103/ul Normal 0.3-0.8 [facility] Comment on above: Performed By: #### C BC ####[facility] Aqcbhxquqn[address] [place], [place] [id number] Tripathi Monocytes/100 WBC (Bld) 8.0 % Normal 1.7-12.0 [facility] Comment on above: Performed By: #### C BC ####[facility] Hbqtveoqfj[address] [place], [place] [address]DrKianna Tripathi NEUT # 5.0 103/ul Normal 1.4-6.5 [facility] Comment on above: Performed By: #### C BC ####[facility] Xupvpuukkd57[address] [place] [phone]. Selenaneil Deuec Neutrophils/100 WBC (Bld) 75.7 % Critically high 43.0-75.0 [facility] Comment on above: Performed By: #### C BC ####[facility] Mpjhgbgkxu6602 [place] [phone]. Selenaneil Deuce Platelet mean volume (Bld) [Entitic vol] 10.4 fL Normal 9.5-13.5 [facility] Comment on above: Performed By: #### C BC ####[facility] Svspvuhlqy60[address] [place] [address]Dr. Airam Tripathi PLT 315 103/ul Normal 150-450 [facility] Comment on above: Performed By: #### C BC ####[facility] Fjrfqfcivu0151 [place] [address]DrKianna Tripathi RBC 3.39 106/ul Critically low 4.20-5.40 [facility] Comment on above: Performed By: #### C BC ####[facility] Dsivvnuyew9[address] [place] [phone]. Airam Tripathi WBC 6.5 103/ul Normal 4.0-11.0 [facility] Comment on above: Performed By: #### C BC ####[facility] Ommllbeywc2241 [place] [id number] Tripathi PROF 14(COMP METB)on 023 Albumin [Mass/Vol] 3.1 g/dL Critically low 3.4-5.0 [facility] Comment on above: Performed By: #### C MP ####[facility] Syccmuthii2472 [place] [phone] Tripathi Albumin/Globulin [Mass ratio] 1.0 {ratio} Normal [facility] Comment on above: Performed By: #### C MP ####[facility] Aqqykznsmw88[address] [place] [phone] Tripathi ALP [Catalytic activity/Vol] 126 U/L Critically high 46-116 [facility] Comment on above: Performed By: #### C MP ####[facility] Ebcwhzxwvr8680 [place] [phone]. Airam Tripathi ALT [Catalytic activity/Vol] 18 U/L Normal 14-59 [facility] Comment on above: Performed By: #### C MP ####[facility] Vbjihfeooa6670 [place] [phone]. Airam Deuce Anion gap [Moles/Vol] 11.4 mmol/L Normal [facility] Comment on above: Performed By: #### C MP ####[facility] Wbcvirrxuc3546 [place] [phone]. Airam Deuce AST [Catalytic activity/Vol] 25 U/L Normal 15-37 [facility] Comment on above: Performed By: #### C MP ####[facility] Bfogytated5[address] [place] [address]Dr. Airam Deuce Bilirubin [Mass/Vol] 0.3 mg/dL Normal 0.2-1.0 [facility] Comment on above: Performed By: #### C MP ####[facility] Nokolwpwvp7040 [place] [phone]. Airam Deuce Calcium [Mass/Vol] 8.6 mg/dL Normal 8.5-10.1 [facility] Comment on above: Performed By: #### C MP ####[facility] Wzprehmhqd0460 [place] [address]Dr. Airam Tripathi Chloride [Moles/Vol] 97 mmol/L Critically low 98-107 [facility] Comment on above: Performed By: #### C MP ####[facility] Qeqnvwudpl8975 [place] [phone]. Airam Deuce CO2 [Moles/Vol] 26.1 mmol/L Normal 21.0-32.0 [facility] Comment on above: Performed By: #### C MP ####[facility] Kknkqtzywo1672 [place] [phone]. Airam Tripathi Creatinine [Mass/Vol] 1.07 mg/dL Critically high 0.55-1.02 [facility] Comment on above: Performed By: #### C MP ####[facility] Vwoswrhrtq9358 [place] [id number]. Airam Tripathi EGFR-AF GUAMANIAN >60 Normal >=60 [facility] Comment on above: Performed By: #### C MP ####[facility] Dmcrxstlid7881 [place] [id number]. Airam Deuce EGFR-NON AF GUAMANIAN 52 mL/min/1.73m2 Critically low >=60 [facility] Comment on above: Performed By: #### C MP ####[facility] Isazfzuygu1536 [place] [phone]. Airam Deuce Globulin (S) [Mass/Vol] 3.2 g/dL Normal [facility] Comment on above: Performed By: #### C MP ####[facility] Oqvngmawsl2419 [place] [address]Dr. Selenaneil Deuce Glucose [Mass/Vol] 83 mg/dL Normal 74-106 [facility] Comment on above: Performed By: #### C MP ####[facility] Bkiwakhcre5438 [place] [address]Dr. Airam Deuce Potassium [Moles/Vol] 5.5 mmol/L Critically high 3.5-5.1 [facility] Comment on above: Performed By: #### C MP ####[facility] Ndwgipicey0645 [place] [address]Dr. Selenaneil Deuce Protein [Mass/Vol] 6.3 g/dL Critically low 6.4-8.2 [facility] Comment on above: Performed By: #### C MP ####[facility] Foquiedezd5569 [place] [address]Dr. Selenaneil Tripathi Sodium [Moles/Vol] 129 mmol/L Critically low 136-145 [facility] Comment on above: Performed By: #### C MP ####[facility] Ngvcyexazq3486 [place] [address]Dr. Selenaneil Deuce Urea nitrogen [Mass/Vol] 37.0 mg/dL Critically high 7.0-18.0 [facility] Comment on above: Performed By: #### C MP ####[facility] Svhegavgbs7945 [place] [address]Dr. Airam Tripathi Urea nitrogen/Creatinine [Mass ratio] 34.6 mg/mg Normal [facility] Comment on above: Performed By: #### C MP ####[facility] Djbgeutkuw0639 [place] [id number]. Airam Tripathi OSMOLALITYon 09-02-2022 Osmolality [Osmolality] 279 mosm/kg Normal 275-295 [facility] Comment on above: Performed By: #### O SMO ####[facility] Obvqzwcovn[address] [place], [place] [address]Dr. Airam Deuce CBC AUTO DIFFon 08-31-2022 BASO # 0.0 103/ul Normal 0.0-0.1 [facility] Comment on above: Performed By: #### C BC ####[facility] Idblpbdntp[address] [place], [place] [address]Dr. Airam Tripathi Basophils/100 WBC (Bld) 0.4 % Normal 0.2-2.0 [facility] Comment on above: Performed By: #### C BC ####[facility] Ebhabvpwvh[address] [place], [place] [address]Dr. Airam Deuce EO # 0.2 103/ul Normal 0.0-0.7 [facility] Comment on above: Performed By: #### C BC ####[facility] Bddkkpcgjg[address] [place], [place] [address]Dr. Selenaneil Tripathi Eosinophils/100 WBC (Bld) 3.2 % Normal 0.9-7.0 [facility] Comment on above: Performed By: #### C BC ####[facility] Bqrhfghfou[address] [place], [place] [address]Dr. Airam Deuce Erythrocyte distribution width (RBC) [Ratio] 14.4 % Normal 11.0-15.0 [facility] Comment on above: Performed By: #### C BC ####[facility] Uktefzcitk[address] [place], [place] [address]Dr. Selenaneil Deuce Hematocrit (Bld) [Volume fraction] 27.8 % Critically low 36.0-48.0 [facility] Comment on above: Performed By: #### C BC ####[facility] [address] [place] [address]Dr. Airam Tripathi Hemoglobin (Bld) [Mass/Vol] 8.7 g/dL Critically low 12.0-16.0 [facility] Comment on above: Performed By: #### C BC ####[facility] K[address]dvujj[address] [place] [address]Dr. Airam Tripathi IG # 0.05 10e3/ul Critically high 0.00-0.03 [facility] Comment on above: Performed By: #### C BC ####[facility] Figzyudfup38[address] [place] [address]Dr. Airam Tripathi IG % 0.7 % Critically high 0.0-0.5 [facility] Comment on above: Performed By: #### C BC ####[facility] Btxqszauxf[address] [place], [place] [address]Dr. Airam Deuce LYMPH # 1.7 103/ul Normal 1.2-3.8 [facility] Comment on above: Performed By: #### C BC ####[facility] Ovtknegvel[address] [place], [place] [address]Dr. Selenaneil Tripathi Lymphocytes/100 WBC (Bld) 23.6 % Normal 20.5-60.0 [facility] Comment on above: Performed By: #### C BC ####[facility] Wifkgymvwa[address] [place], [place] [address]Dr. Selenaneil Tripathi MANUAL DIFF REQ NO Normal [facility] Comment on above: Performed By: #### C BC ####[facility] Mqtowqqhwi[address] [place], [place] [address]Dr. Airam Tripathi MCH (RBC) [Entitic mass] 27.8 pg Normal 26.7-34.0 [facility] Comment on above: Performed By: #### C BC ####[facility] Qzfmvhgkvs98[address] [place] [address]Dr. Airam Tripathi MCHC (RBC) [Mass/Vol] 31.3 g/dL Normal 29.9-35.2 [facility] Comment on above: Performed By: #### C BC ####[facility] Ejddlijoki[address] [place] [id number]. Airam Tripathi MCV (RBC) [Entitic vol] 88.8 fL Normal 81.0-99.0 [facility] Comment on above: Performed By: #### C BC ####[facility] Eknlkceauw13[address] [place] [address]Dr. Airam Tripathi MONO # 0.5 103/ul Normal 0.3-0.8 [facility] Comment on above: Performed By: #### C BC ####[facility] Xogbjqffox13[address] [place] [address]Dr. Airam Tripathi Monocytes/100 WBC (Bld) 6.9 % Normal 1.7-12.0 [facility] Comment on above: Performed By: #### C BC ####[facility] Gteepobioi698[address] [place], [place] [address]Dr. Airam Tripathi NEUT # 4.7 103/ul Normal 1.4-6.5 [facility] Comment on above: Performed By: #### C BC ####[facility] Jmnjpyriul[address] [place], [place] [address]Dr. Airam Deuce Neutrophils/100 WBC (Bld) 65.2 % Normal 43.0-75.0 [facility] Comment on above: Performed By: #### C BC ####[facility] Yufnqqctfj[address] [place], [place] [address]Dr. Airam Deuce Platelet mean volume (Bld) [Entitic vol] 9.8 fL Normal 9.5-13.5 [facility] Comment on above: Performed By: #### C BC ####[facility] Dqtpacreey[address] [place], [place] [address]Dr. Airam Deuce PLT 225 103/ul Normal 150-450 [facility] Comment on above: Performed By: #### C BC ####[facility] Onfzhobwuk6[address] [place] [phone]. Selenaneil Tripathi RBC 3.13 106/ul Critically low 4.20-5.40 [facility] Comment on above: Performed By: #### C BC ####[facility] Zapfhlmvdr2454 [place] [address]Dr. Airam Tripathi WBC 7.3 103/ul Normal 4.0-11.0 [facility] Comment on above: Performed By: #### C BC ####[facility] Rwwbqijusn2143 [place] [address]Dr. Airam Tripathi PROF 14(COMP METB)on 023 Albumin [Mass/Vol] 3.0 g/dL Critically low 3.4-5.0 [facility] Comment on above: Performed By: #### C MP ####[facility] Bljfdjutzu86[address] [place] [address]Dr. Airam Tripathi Albumin/Globulin [Mass ratio] 1.1 {ratio} Normal [facility] Comment on above: Performed By: #### C MP ####[facility] Efkcslnceb5598 [place] [address]Dr. Airam Tripathi ALP [Catalytic activity/Vol] 132 U/L Critically high 46-116 [facility] Comment on above: Performed By: #### C MP ####[facility] Cngaxrcwuo[address] [place], [place] [address]Dr. Airam Tripathi ALT [Catalytic activity/Vol] 20 U/L Normal 14-59 [facility] Comment on above: Performed By: #### C MP ####[facility] Ekyfjemore5633 [place] [address]Dr. Airam Tripathi Anion gap [Moles/Vol] 9.5 mmol/L Normal [facility] Comment on above: Performed By: #### C MP ####[facility] Biqqngbchd5238 [place] [address]Dr. Airam Tripathi AST [Catalytic activity/Vol] 25 U/L Normal 15-37 [facility] Comment on above: Performed By: #### C MP ####[facility] Kmfvyeqeyi5523 [place] [address]Dr. Airam Tripathi Bilirubin [Mass/Vol] 0.2 mg/dL Normal 0.2-1.0 [facility] Comment on above: Performed By: #### C MP ####[facility] Wgetotgsej4645 [place] [phone]. Airam Tripathi Calcium [Mass/Vol] 7.9 mg/dL Critically low 8.5-10.1 [facility] Comment on above: Performed By: #### C MP ####[facility] Gpfjmuxzcs6787 [place] [phone]. Airam Deuce Chloride [Moles/Vol] 97 mmol/L Critically low 98-107 [facility] Comment on above: Performed By: #### C MP ####[facility] Ahazjfuinu4317 [place] [phone]. Airam Deuce CO2 [Moles/Vol] 27.3 mmol/L Normal 21.0-32.0 [facility] Comment on above: Performed By: #### C MP ####[facility] Zndbowaxxb[address] [place], [place] [address]Dr. Selenaneil Tripathi Creatinine [Mass/Vol] 1.58 mg/dL Critically high 0.55-1.02 [facility] Comment on above: Performed By: #### C MP ####[facility] Wsworqgalj[address] [place], [place] [address]Dr. Airam Deuce EGFR-AF GUAMANIAN 40 mL/min/1.73m2 Critically low >=60 [facility] Comment on above: Performed By: #### C MP ####[facility] Sagkngjeda[address] [place], [place] [address]Dr. Selenaneil Deuce EGFR-NON AF GUAMANIAN 33 mL/min/1.73m2 Critically low >=60 [facility] Comment on above: Performed By: #### C MP ####[facility] Qqipnpldbu9005 [place] [phone]. Airam Tripathi Globulin (S) [Mass/Vol] 2.8 g/dL Normal [facility] Comment on above: Performed By: #### C MP ####[facility] Rpicefnqbb3313 [place] [phone]. Airam Tripathi Glucose [Mass/Vol] 111 mg/dL Critically high 74-106 [facility] Comment on above: Performed By: #### C MP ####[facility] Pwbssnrzph6253 [place] [address]Dr. Airam Deuce Potassium [Moles/Vol] 4.8 mmol/L Normal 3.5-5.1 [facility] Comment on above: Performed By: #### C MP ####[facility] Feddzhgyok[address] [place], [place] [address]Dr. Selenaneil Deuce Protein [Mass/Vol] 5.8 g/dL Critically low 6.4-8.2 [facility] Comment on above: Performed By: #### C MP ####[facility] Ehxrajhhch[address] [place], [place] [address]Dr. Airam Tripathi Sodium [Moles/Vol] 129 mmol/L Critically low 136-145 [facility] Comment on above: Performed By: #### C MP ####[facility] Bluhiwjuid194[address] [place], [place] [address]Dr. Airam Tripathi Urea nitrogen [Mass/Vol] 44.0 mg/dL Critically high 7.0-18.0 [facility] Comment on above: Performed By: #### C MP ####[facility] Mqpdptbdew[address] [place], [place] [address]Dr. Airam Tripathi Urea nitrogen/Creatinine [Mass ratio] 27.8 mg/mg Normal [facility] Comment on above: Performed By: #### C MP ####[facility] Ejnhutpdil[address] [place], [place] [address]Dr. Airam Tripathi OSMOLALITYon 08-28-2022 Osmolality [Osmolality] 288 mosm/kg Normal 275-295 [facility] Comment on above: Performed By: #### O SMO ####[facility] Jbzaytpzkz[address] [place], [place] [address]DrKianna Selenaneil Tripathi CBC AUTO DIFFon 08-25-2022 BASO # 0.0 103/ul Normal 0.0-0.1 [facility] Comment on above: Performed By: #### C BC ####[facility] Bvykdgcjqq406[address] [place], [place] [address]Dr. Airam Tripathi Basophils/100 WBC (Bld) 0.5 % Normal 0.2-2.0 [facility] Comment on above: Performed By: #### C BC ####[facility] Fnimlnigee128[address] [place], [place] [address]DrKianna Tripathi EO # 0.4 103/ul Normal 0.0-0.7 [facility] Comment on above: Performed By: #### C BC ####[facility] Leiewuyryn[address] [place], [place] [address]DrKianna Tripathi Eosinophils/100 WBC (Bld) 4.8 % Normal 0.9-7.0 [facility] Comment on above: Performed By: #### C BC ####[facility] Gkoemyapqb064[address] [place], [place] [address]Dr. Airam Triapthi Erythrocyte distribution width (RBC) [Ratio] 14.2 % Normal 11.0-15.0 [facility] Comment on above: Performed By: #### C BC ####[facility] Wfcwilcstc[address] [place], [place] [address]DrKianna Tripathi Hematocrit (Bld) [Volume fraction] 31.1 % Critically low 36.0-48.0 [facility] Comment on above: Performed By: #### C BC ####[facility] Gmkgupufpq[address] [place], [place] [address]DrKianna Tripathi Hemoglobin (Bld) [Mass/Vol] 9.7 g/dL Critically low 12.0-16.0 [facility] Comment on above: Performed By: #### C BC ####[facility] Bqykmqfjep[address] [place], [place] [address]DrKianna Tripathi IG # 0.05 10e3/ul Critically high 0.00-0.03 [facility] Comment on above: Performed By: #### C BC ####[facility] Ygunchqdus[address] [place], [place] [address]DrKianna Tripathi IG % 0.6 % Critically high 0.0-0.5 [facility] Comment on above: Performed By: #### C BC ####[facility] Znvaneoahm[address] [place], [place] [address]Dr. Airam Tripathi LYMPH # 1.7 103/ul Normal 1.2-3.8 [facility] Comment on above: Performed By: #### C BC ####[facility] Ebytyismbj4929 [place] [address]DrKianna Tripathi Lymphocytes/100 WBC (Bld) 19.6 % Critically low 20.5-60.0 [facility] Comment on above: Performed By: #### C BC ####[facility] Xgjkephqsk[address] [place], [place] [address]DrKianna Tripathi MANUAL DIFF REQ NO Normal [facility] Comment on above: Performed By: #### C BC ####[facility] Cgqrpagmkg[address] [place], [place] [address]DrKianna Tripathi MCH (RBC) [Entitic mass] 28.2 pg Normal 26.7-34.0 [facility] Comment on above: Performed By: #### C BC ####[facility] Belhhjnyuh[address] [place], [place] [address]DrKianna Tripathi MCHC (RBC) [Mass/Vol] 31.2 g/dL Normal 29.9-35.2 [facility] Comment on above: Performed By: #### C BC ####[facility] Junjldjiiu875[address] [place], [place] [address]DrKianna Tripathi MCV (RBC) [Entitic vol] 90.4 fL Normal 81.0-99.0 [facility] Comment on above: Performed By: #### C BC ####[facility] Betvulpwbb256[address] [place], [place] [address]DrKianna Tripathi MONO # 0.6 103/ul Normal 0.3-0.8 [facility] Comment on above: Performed By: #### C BC ####[facility] Khpjlzvbzr[address] [place], [place] [address]DrKianna Tripathi Monocytes/100 WBC (Bld) 7.4 % Normal 1.7-12.0 [facility] Comment on above: Performed By: #### C BC ####[facility] Vyqwroxywh7[address] [place], [place] [address]DrKianna Tripathi NEUT # 5.8 103/ul Normal 1.4-6.5 [facility] Comment on above: Performed By: #### C BC ####[facility] Jirnqrprhx8653 [place] [address]DrKianna Tripathi Neutrophils/100 WBC (Bld) 67.1 % Normal 43.0-75.0 [facility] Comment on above: Performed By: #### C BC ####[facility] Alrwbhywxy5373 [place] [address]DrKianna Tripathi Platelet mean volume (Bld) [Entitic vol] 9.9 fL Normal 9.5-13.5 [facility] Comment on above: Performed By: #### C BC ####[facility] Puoymtlxmo[address] [place], [place] [address]DrKianna Tripathi PLT 320 103/ul Normal 150-450 [facility] Comment on above: Performed By: #### C BC ####[facility] Pfyatukorc237[address] [place], [place] [address]DrKianna Tripathi RBC 3.44 106/ul Critically low 4.20-5.40 [facility] Comment on above: Performed By: #### C BC ####[facility] Qlaqlqgrbw388[address] [place], [place] [address]DrKianna Tripathi WBC 8.6 103/ul Normal 4.0-11.0 [facility] Comment on above: Performed By: #### C BC ####[facility] Hfxtmfimou336[address] [place], [place] [address]DrKianna Tripathi PROF 14(COMP METB)on 023 Albumin [Mass/Vol] 3.4 g/dL Normal 3.4-5.0 [facility] Comment on above: Performed By: #### C MP ####[facility] Jqtumfzlon249[address] [place], [place] [address]DrKianna Tripathi Albumin/Globulin [Mass ratio] 1.1 {ratio} Normal [facility] Comment on above: Performed By: #### C MP ####[facility] Xmoqfwlgvw[address] [place], [place] [address]DrKianna Tripathi ALP [Catalytic activity/Vol] 170 U/L Critically high 46-116 [facility] Comment on above: Performed By: #### C MP ####[facility] Abmckhtlzy8433 [place] [address]Dr. Airam Tripathi ALT [Catalytic activity/Vol] 22 U/L Normal 14-59 [facility] Comment on above: Performed By: #### C MP ####[facility] Fgiiamgzak4493 [place] [address]Dr. Airam Tripathi Anion gap [Moles/Vol] 14.4 mmol/L Normal [facility] Comment on above: Performed By: #### C MP ####[facility] Vycjlywdjn198[address] [place], [place] [address]Dr. Airam Tripathi AST [Catalytic activity/Vol] 25 U/L Normal 15-37 [facility] Comment on above: Performed By: #### C MP ####[facility] Twlcaykdjt2227[address] [place], [place] [address]Dr. Airam Deuce Bilirubin [Mass/Vol] 0.3 mg/dL Normal 0.2-1.0 [facility] Comment on above: Performed By: #### C MP ####[facility] Txjkjrdcsz686[address] [place], [place] [address]Dr. Airam Tripathi Calcium [Mass/Vol] 8.2 mg/dL Critically low 8.5-10.1 [facility] Comment on above: Performed By: #### C MP ####[facility] Siowxyackj76[address] [place], [place] [address]Dr. Aiarm Tripathi Chloride [Moles/Vol] 98 mmol/L Normal 98-107 [facility] Comment on above: Performed By: #### C MP ####[facility] Rltoyujdly695[address] [place], [place] [address]Dr. Airam Tripathi CO2 [Moles/Vol] 27.8 mmol/L Normal 21.0-32.0 [facility] Comment on above: Performed By: #### C MP ####[facility] Rkfneumaer[address] [place], [place] [address]Dr. Airam Deuce Creatinine [Mass/Vol] 1.82 mg/dL Critically high 0.55-1.02 [facility] Comment on above: Performed By: #### C MP ####[facility] Mdwbszitsf0597 [place] [address]Dr. Selenaneil Deuce EGFR-AF GUAMANIAN 34 mL/min/1.73m2 Critically low >=60 [facility] Comment on above: Performed By: #### C MP ####[facility] Jfjndxljvt1136 [place] [address]Dr. Airam Tripathi EGFR-NON AF GUAMANIAN 28 mL/min/1.73m2 Critically low >=60 [facility] Comment on above: Performed By: #### C MP ####[facility] Oqdegilzeu4961 [place] [address]Dr. Airam Tripathi Globulin (S) [Mass/Vol] 3.2 g/dL Normal [facility] Comment on above: Performed By: #### C MP ####[facility] Sztevlczcl[address] [place], [place] [address]Dr. Airam Tripathi Glucose [Mass/Vol] 78 mg/dL Normal 74-106 [facility] Comment on above: Performed By: #### C MP ####[facility] Tiynlhabml619[address] [place], [place] [address]Dr. Airam Tripathi Potassium [Moles/Vol] 5.2 mmol/L Critically high 3.5-5.1 [facility] Comment on above: Performed By: #### C MP ####[facility] Pyfbowcipu[address] [place], [place] [address]Dr. Airam Tripathi Protein [Mass/Vol] 6.6 g/dL Normal 6.4-8.2 [facility] Comment on above: Performed By: #### C MP ####[facility] Ncwfzgbpmj5793 [place] [address]Dr. Airam Tripathi Sodium [Moles/Vol] 135 mmol/L Critically low 136-145 [facility] Comment on above: Performed By: #### C MP ####[facility] Bvnjinsglg3315 [place] [address]Dr. Airam Tripathi Urea nitrogen [Mass/Vol] 51.0 mg/dL Critically high 7.0-18.0 [facility] Comment on above: Performed By: #### C MP ####[facility] Nefuqlczcf[address] [place], [place] [address]Dr. Airam Tripathi Urea nitrogen/Creatinine [Mass ratio] 28.0 mg/mg Normal [facility] Comment on above: Performed By: #### C MP ####[facility] Mlvmkyjvvx9[address] [place], [place] [address]Dr. Airam Tripathi OSMOLALITYon 08-18-2022 Osmolality [Osmolality] 280 mosm/kg Normal 275-295 [facility] Comment on above: Performed By: #### O SMO ####[facility] Kvcanirygg[address] [place], [place] [address]Dr. Airam Tripathi CBC AUTO DIFFon 08-16-2022 BASO # 0.0 103/ul Normal 0.0-0.1 [facility] Comment on above: Performed By: #### C BC ####[facility] Nruosvnotp[address] [place], [place] [address]DrKianna Tripathi Basophils/100 WBC (Bld) 0.2 % Normal 0.2-2.0 [facility] Comment on above: Performed By: #### C BC ####[facility] Hwzsumndrg[address] [place], [place] [address]DrKianna Tripathi EO # 0.2 103/ul Normal 0.0-0.7 [facility] Comment on above: Performed By: #### C BC ####[facility] Ydvlkzmppy[address] [place], [place] [address]DrKianna Tripathi Eosinophils/100 WBC (Bld) 2.4 % Normal 0.9-7.0 [facility] Comment on above: Performed By: #### C BC ####[facility] Xcwqnbaifj59[address] [place], [place] [address]Dr. Airam Tripathi Erythrocyte distribution width (RBC) [Ratio] 14.2 % Normal 11.0-15.0 [facility] Comment on above: Performed By: #### C BC ####[facility] Aizijzjbtb[address] [place], [place] [address]Dr. Airam Tripathi Hematocrit (Bld) [Volume fraction] 30.1 % Critically low 36.0-48.0 [facility] Comment on above: Performed By: #### C BC ####[facility] Ssbabtacez1252 [place] [address]DrKianna Tripathi Hemoglobin (Bld) [Mass/Vol] 9.2 g/dL Critically low 12.0-16.0 [facility] Comment on above: Performed By: #### C BC ####[facility] Ewhatlsuvq46[address] [place], [place] [address]DrKianna Tripathi IG # 0.04 10e3/ul Critically high 0.00-0.03 [facility] Comment on above: Performed By: #### C BC ####[facility] Zqgycsebfq174[address] [place], [place] [address]DrKianna Tripathi IG % 0.4 % Normal 0.0-0.5 [facility] Comment on above: Performed By: #### C BC ####[facility] Ozxlsidats[address] [place], [place] [address]DrKianna Tripathi LYMPH # 0.9 103/ul Critically low 1.2-3.8 [facility] Comment on above: Performed By: #### C BC ####[facility] Bfyywvybok[address] [place], [place] [address]DrKianna Tripathi Lymphocytes/100 WBC (Bld) 9.3 % Critically low 20.5-60.0 [facility] Comment on above: Performed By: #### C BC ####[facility] Tgufjhcwmq[address] [place], [place] [address]DrKianna Tripathi MANUAL DIFF REQ NO Normal [facility] Comment on above: Performed By: #### C BC ####[facility] Psofehpwmk942[address] [place], [place] [address]DrKianna Tripathi MCH (RBC) [Entitic mass] 27.7 pg Normal 26.7-34.0 [facility] Comment on above: Performed By: #### C BC ####[facility] Coxmzsstci14[address] [place], [place] [address]DrKianna Tripathi MCHC (RBC) [Mass/Vol] 30.6 g/dL Normal 29.9-35.2 [facility] Comment on above: Performed By: #### C BC ####[facility] Ikcppnabvm3871 [place] [address]Dr. Airam Deuce MCV (RBC) [Entitic vol] 90.7 fL Normal 81.0-99.0 [facility] Comment on above: Performed By: #### C BC ####[facility] Ypewalrleg[address] [place], [place] [address]DrKianna Tripathi MONO # 0.5 103/ul Normal 0.3-0.8 [facility] Comment on above: Performed By: #### C BC ####[facility] Gpliqefxlc[address] [place], [place] [address]Dr. Airam Tripathi Monocytes/100 WBC (Bld) 5.3 % Normal 1.7-12.0 [facility] Comment on above: Performed By: #### C BC ####[facility] Jtoimarpix[address] [place], [place] [address]Dr. Airam Tripathi NEUT # 7.7 103/ul Critically high 1.4-6.5 [facility] Comment on above: Performed By: #### C BC ####[facility] Flexphfect[address] [place], [place] [address]Dr. Airam Tripathi Neutrophils/100 WBC (Bld) 82.4 % Critically high 43.0-75.0 [facility] Comment on above: Performed By: #### C BC ####[facility] Iahijznblr32[address] [place], [place] [address]Dr. Airam rTipathi Platelet mean volume (Bld) [Entitic vol] 9.8 fL Normal 9.5-13.5 [facility] Comment on above: Performed By: #### C BC ####[facility] Lxyqjwdmvk[address] [place], [place] [address]Dr. Airam Tripathi PLT 285 103/ul Normal 150-450 [facility] Comment on above: Performed By: #### C BC ####[facility] Jxgufrmflw[address] [place], [place] [address]Dr. Airam Tripathi RBC 3.32 106/ul Critically low 4.20-5.40 [facility] Comment on above: Performed By: #### C BC ####[facility] Gjqrbxvxgz76[address] [place] [address]Dr. Airam Tripathi WBC 9.4 103/ul Normal 4.0-11.0 [facility] Comment on above: Performed By: #### C BC ####[facility] Olwcdcriox39[address] [place] [address]Dr. Airam Tripathi MRI WRIST RT WO CONon 2022 MRI WRIST RT WO CON Normal [facility] PROF 14(COMP METB)on 023 Albumin [Mass/Vol] 3.1 g/dL Critically low 3.4-5.0 [facility] Comment on above: Performed By: #### C MP ####[facility] Gyegztylmk[address] [place], [place] [address]Dr. Selenaneil Deuce Albumin/Globulin [Mass ratio] 0.9 {ratio} Normal [facility] Comment on above: Performed By: #### C MP ####[facility] Wkybcaeetu[address] [place] [address]Dr. Selenaneil Deuce ALP [Catalytic activity/Vol] 162 U/L Critically high 46-116 [facility] Comment on above: Performed By: #### C MP ####[facility] Udybcciccv[address] [place], [place] [address]Dr. Airam Tripathi ALT [Catalytic activity/Vol] 19 U/L Normal 14-59 [facility] Comment on above: Performed By: #### C MP ####[facility] Hybhkeoejr[address] [place] [phone]. Airam Tripathi Anion gap [Moles/Vol] 13.0 mmol/L Normal [facility] Comment on above: Performed By: #### C MP ####[facility] Lbcfplqplo96[address] [place] [address]Dr. Airam Tripathi AST [Catalytic activity/Vol] 21 U/L Normal 15-37 [facility] Comment on above: Performed By: #### C MP ####[facility] Ebxelcicol1732 [place] [phone]. Airam Tripathi Bilirubin [Mass/Vol] 0.3 mg/dL Normal 0.2-1.0 [facility] Comment on above: Performed By: #### C MP ####[facility] Akpbsmtojn4520 [place] [phone]. Airam Tripathi Calcium [Mass/Vol] 8.4 mg/dL Critically low 8.5-10.1 [facility] Comment on above: Performed By: #### C MP ####[facility] Svrhgkplvo3293 [place] [phone]. Airam Tripathi Chloride [Moles/Vol] 103 mmol/L Normal 98-107 [facility] Comment on above: Performed By: #### C MP ####[facility] Qpoacyux[address] [place], [place] [id number]. Airam Tripathi CO2 [Moles/Vol] 23.3 mmol/L Normal 21.0-32.0 [facility] Comment on above: Performed By: #### C MP ####[facility] Vxcwlmknue9358 [place] [phone]. Airam Tripathi Creatinine [Mass/Vol] 1.02 mg/dL Normal 0.55-1.02 [facility] Comment on above: Performed By: #### C MP ####[facility] Sawyvyitig2746 [place] [phone]. Airam Tripatih EGFR-AF GUAMANIAN >60 Normal >=60 [facility] Comment on above: Performed By: #### C MP ####[facility] Vsmxgyyqnd5117 [place] [phone]. Airam Deuce EGFR-NON AF GUAMANIAN 55 mL/min/1.73m2 Critically low >=60 [facility] Comment on above: Performed By: #### C MP ####[facility] Wuccxghkqg[address] [place], [place] [address]Dr. Airam Tripathi Globulin (S) [Mass/Vol] 3.4 g/dL Normal [facility] Comment on above: Performed By: #### C MP ####[facility] Fvnnwxrjnw0733 [place] [phone]. Airam Tripathi Glucose [Mass/Vol] 88 mg/dL Normal 74-106 [facility] Comment on above: Performed By: #### C MP ####[facility] Wsllxxmnbx9542 [place] [address]Dr. Airam Tripathi Potassium [Moles/Vol] 4.3 mmol/L Normal 3.5-5.1 [facility] Comment on above: Performed By: #### C MP ####[facility] Zcvpqbevgt4457 [place] [address]Dr. Airam Tripathi Protein [Mass/Vol] 6.5 g/dL Normal 6.4-8.2 [facility] Comment on above: Performed By: #### C MP ####[facility] Holztykjna6996 [place] [address]Dr. Airam Tripathi Sodium [Moles/Vol] 135 mmol/L Critically low 136-145 Th [facility] Comment on above: Performed By: #### C MP ####[facility] Rgnwysnsee[address] [place], [place] [address]Dr. Airam Tripathi Urea nitrogen [Mass/Vol] 27.0 mg/dL Critically high 7.0-18.0 [facility] Comment on above: Performed By: #### C MP ####[facility] Yeooycsmrz[address] [place], [place] [address]Dr. Airam Tripathi Urea nitrogen/Creatinine [Mass ratio] 26.5 mg/mg Normal [facility] Comment on above: Performed By: #### C MP ####[facility] Xgbyitfnoj[address] [place], [place] [address]Dr. Airam Tripathi CT HEAD WO CONon 08-06-2022 CT HEAD WO CON Normal [facility] CT LSPINE WO CONon 3 CT LSPINE WO CON Normal [facility] XR HAND RT MIN 3Von 08-06-19 23 XR HAND RT MIN 3V Normal [facility] XR KNEE LT 4V or >on 023 XR KNEE LT 4V or > Normal [facility] XR WRIST RT MIN 3 Von 2022 XR WRIST RT MIN 3 V Normal [facility] OSMOLALITYon 08-05-2022 Osmolality [Osmolality] 282 mosm/kg Normal 275-295 [facility] Comment on above: Performed By: #### O SMO ####[facility] Bsuteqmhzq[address] [place] [address]Dr. Airam Tripathi CBC AUTO DIFFon 08-03-2022 BASO # 0.0 103/ul Normal 0.0-0.1 [facility] Comment on above: Performed By: #### C BC ####[facility] Zrforjvlll56[address] [place] [address]Dr. Selenaneil Tripathi Basophils/100 WBC (Bld) 0.5 % Normal 0.2-2.0 [facility] Comment on above: Performed By: #### C BC ####[facility] Qwxprmsvrk[address] [place], [place] [address]Dr. Selenaneil Tripathi EO # 0.5 103/ul Normal 0.0-0.7 [facility] Comment on above: Performed By: #### C BC ####[facility] Agxvczvsul[address] [place], [place] [address]Dr. Selenaneil Tripathi Eosinophils/100 WBC (Bld) 5.2 % Normal 0.9-7.0 [facility] Comment on above: Performed By: #### C BC ####[facility] Kozowrcgnj34[address] [place] [address]Dr. Selenaneil Tripathi Erythrocyte distribution width (RBC) [Ratio] 14.3 % Normal 11.0-15.0 [facility] Comment on above: Performed By: #### C BC ####[facility] Qblthxngen[address] [place], [place] [address]Dr. Airam Tripathi Hematocrit (Bld) [Volume fraction] 31.4 % Critically low 36.0-48.0 [facility] Comment on above: Performed By: #### C BC ####[facility] Bfzrwckhof5164 [place] [address]Dr. Airam Tripathi Hemoglobin (Bld) [Mass/Vol] 9.5 g/dL Critically low 12.0-16.0 [facility] Comment on above: Performed By: #### C BC ####[facility] Lpludhqgka9225 [place] [phone]. Airam Tripathi IG # 0.05 10e3/ul Critically high 0.00-0.03 [facility] Comment on above: Performed By: #### C BC ####[facility] Qpbvcgkovf9524 [place] [phone]. Airam Tripathi IG % 0.6 % Critically high 0.0-0.5 [facility] Comment on above: Performed By: #### C BC ####[facility] Stizncopev[address] [place] [address]Dr. Airam Tripathi LYMPH # 1.5 103/ul Normal 1.2-3.8 [facility] Comment on above: Performed By: #### C BC ####[facility] Nujrqowmsf[address] [place], [place] [address]Dr. Airam Tripathi Lymphocytes/100 WBC (Bld) 17.6 % Critically low 20.5-60.0 [facility] Comment on above: Performed By: #### C BC ####[facility] Yrjjkmtiej[address] [place], [place] [address]Dr. Airam Tripathi MANUAL DIFF REQ NO Normal [facility] Comment on above: Performed By: #### C BC ####[facility] Zqjjuwrhjy[address] [place], [place] [address]Dr. Airam Tripathi MCH (RBC) [Entitic mass] 29.0 pg Normal 26.7-34.0 [facility] Comment on above: Performed By: #### C BC ####[facility] Qwjyncatos7[address] [place], [place] [address]Dr. Airam Tripathi MCHC (RBC) [Mass/Vol] 30.3 g/dL Normal 29.9-35.2 [facility] Comment on above: Performed By: #### C BC ####[facility] Xszuxpejsz6063 [place] [address]Dr. Airam Tripathi MCV (RBC) [Entitic vol] 95.7 fL Normal 81.0-99.0 [facility] Comment on above: Performed By: #### C BC ####[facility] Akxqgvbiha5316 [place] [phone]. Airam Tripathi MONO # 0.7 103/ul Normal 0.3-0.8 [facility] Comment on above: Performed By: #### C BC ####[facility] Vkzdjprcjf0951 [place] [phone]. Airam Tripathi Monocytes/100 WBC (Bld) 8.5 % Normal 1.7-12.0 [facility] Comment on above: Performed By: #### C BC ####[facility] Lhbcmejiae5298 [place] [phone]. Airam Tripathi NEUT # 5.8 103/ul Normal 1.4-6.5 [facility] Comment on above: Performed By: #### C BC ####[facility] Lupthipmpn2604 [place] [phone]. Airam Tripathi Neutrophils/100 WBC (Bld) 67.6 % Normal 43.0-75.0 [facility] Comment on above: Performed By: #### C BC ####[facility] Hqkgylcrow2697 [place] [phone]. Airam Tripathi Platelet mean volume (Bld) [Entitic vol] 9.5 fL Normal 9.5-13.5 [facility] Comment on above: Performed By: #### C BC ####[facility] Gbymjyinpb07[address] [place] [phone]. Airam Tripathi PLT 292 103/ul Normal 150-450 [facility] Comment on above: Performed By: #### C BC ####[facility] Igexkfyqum5572 [place] [phone]. Airam Tripathi RBC 3.28 106/ul Critically low 4.20-5.40 [facility] Comment on above: Performed By: #### C BC ####[facility] Aupevyhkds7770 [place] [phone]. Airam Tripathi WBC 8.6 103/ul Normal 4.0-11.0 [facility] Comment on above: Performed By: #### C BC ####[facility] Opxbwzpyjx[address] [place], [place] [address]Dr. Airam Tripathi PROF 14(COMP METB)on 023 Albumin [Mass/Vol] 3.0 g/dL Critically low 3.4-5.0 [facility] Comment on above: Performed By: #### C MP ####[facility] Pvlmieewka[address] [place], [place] [address]Dr. Airam Tripathi Albumin/Globulin [Mass ratio] 0.9 {ratio} Normal [facility] Comment on above: Performed By: #### C MP ####[facility] Oizwhapkfs[address] [place], [place] [address]Dr. Airam Tripathi ALP [Catalytic activity/Vol] 184 U/L Critically high 46-116 [facility] Comment on above: Performed By: #### C MP ####[facility] Mlgmmupriv85[address] [place], [place] [address]Dr. Airam Tripathi ALT [Catalytic activity/Vol] 18 U/L Normal 14-59 [facility] Comment on above: Performed By: #### C MP ####[facility] Msprulzvtb[address] [place], [place] [address]Dr. Airam Tripathi Anion gap [Moles/Vol] 11.2 mmol/L Normal [facility] Comment on above: Performed By: #### C MP ####[facility] Tnglmouyma[address] [place], [place] [address]Dr. Airam Tripathi AST [Catalytic activity/Vol] 19 U/L Normal 15-37 [facility] Comment on above: Performed By: #### C MP ####[facility] Jkkownpock[address] [place], [place] [address]Dr. Airam Tripathi Bilirubin [Mass/Vol] 0.3 mg/dL Normal 0.2-1.0 [facility] Comment on above: Performed By: #### C MP ####[facility] Bpcyytcfmh[address] [place], [place] [address]Dr. Airam Tripathi Calcium [Mass/Vol] 8.8 mg/dL Normal 8.5-10.1 [facility] Comment on above: Performed By: #### C MP ####[facility] Vkvolddino6116 [place] [phone]. Airam Tripathi Chloride [Moles/Vol] 101 mmol/L Normal 98-107 [facility] Comment on above: Performed By: #### C MP ####[facility] Wuthlnwtwd4006 [place] [address]Dr. Airam Tripathi CO2 [Moles/Vol] 25.4 mmol/L Normal 21.0-32.0 [facility] Comment on above: Performed By: #### C MP ####[facility] Qzxartzwtk3857 [place] [address]Dr. Airam Deuce Creatinine [Mass/Vol] 1.05 mg/dL Critically high 0.55-1.02 [facility] Comment on above: Performed By: #### C MP ####[facility] Dviyqatwcj9661 [place] [address]Dr. Airam Deuce EGFR-AF GUAMANIAN >60 Normal >=60 [facility] Comment on above: Performed By: #### C MP ####[facility] Yluygdgyta9860 [place] [address]Dr. Airam Deuce EGFR-NON AF GUAMANIAN 53 mL/min/1.73m2 Critically low >=60 [facility] Comment on above: Performed By: #### C MP ####[facility] Vkyxxsklnp3344 [place] [address]Dr. Airam Deuce Globulin (S) [Mass/Vol] 3.4 g/dL Normal [facility] Comment on above: Performed By: #### C MP ####[facility] Rltdeyppdy2543 [place] [address]Dr. Airam Deuce Glucose [Mass/Vol] 78 mg/dL Normal 74-106 [facility] Comment on above: Performed By: #### C MP ####[facility] Uekfgywkyy[address] [place], [place] [address]Dr. Airam Deuce Potassium [Moles/Vol] 4.6 mmol/L Normal 3.5-5.1 [facility] Comment on above: Performed By: #### C MP ####[facility] Goojqcjytb99[address] [place], [place] [address]Dr. Airam Deuce Protein [Mass/Vol] 6.4 g/dL Normal 6.4-8.2 [facility] Comment on above: Performed By: #### C MP ####[facility] Jifwrhzkpn01[address] [place], [place] [address]Dr. Airam Tripathi Sodium [Moles/Vol] 133 mmol/L Critically low 136-145 Th [facility] Comment on above: Performed By: #### C MP ####[facility] Vfhuzpheqe525[address] [place], [place] [address]Dr. Airam Deuce Urea nitrogen [Mass/Vol] 26.0 mg/dL Critically high 7.0-18.0 [facility] Comment on above: Performed By: #### C MP ####[facility] Bmajsucfku20[address] [place], [place] [address]Dr. Selenaneil Tripathi Urea nitrogen/Creatinine [Mass ratio] 24.8 mg/mg Normal [facility] Comment on above: Performed By: #### C MP ####[facility] Zvdmdnlnjm[address] [place], [place] [address]Dr. Airam Deuce OSMOLALITYon 07-29-2022 Osmolality [Osmolality] 287 mosm/kg Normal 275-295 [facility] Comment on above: Performed By: #### O SMO ####[facility] Elsomrisxl076[address] [place], [place] [address]Dr. Airam Deuce CBC AUTO DIFFon 07-27-2022 BASO # 0.0 103/ul Normal 0.0-0.1 [facility] Comment on above: Performed By: #### C BC ####[facility] Umltvilnfs[address] [place], [place] [address]Dr. Selenaneil Tripathi Basophils/100 WBC (Bld) 0.4 % Normal 0.2-2.0 [facility] Comment on above: Performed By: #### C BC ####[facility] Jrvcvuzzjd295[address] [place], [place] [address]Dr. Airam Tripathi EO # 0.2 103/ul Normal 0.0-0.7 [facility] Comment on above: Performed By: #### C BC ####[facility] Lyhxwuiiyz4069 [place] [address]Dr. Airam Tripathi Eosinophils/100 WBC (Bld) 2.6 % Normal 0.9-7.0 [facility] Comment on above: Performed By: #### C BC ####[facility] Mwlfbwzldy[address] [place], [place] [address]Dr. Airam Tripathi Erythrocyte distribution width (RBC) [Ratio] 14.2 % Normal 11.0-15.0 [facility] Comment on above: Performed By: #### C BC ####[facility] Nrgencigff[address] [place], [place] [address]Dr. Airam Tripathi Hematocrit (Bld) [Volume fraction] 31.3 % Critically low 36.0-48.0 [facility] Comment on above: Performed By: #### C BC ####[facility] Lyycwaesxt[address] [place], [place] [address]Dr. Airam Tripathi Hemoglobin (Bld) [Mass/Vol] 9.3 g/dL Critically low 12.0-16.0 [facility] Comment on above: Performed By: #### C BC ####[facility] Izgczyjjdf[address] [place], [place] [address]Dr. Airam Tripathi IG # 0.05 10e3/ul Critically high 0.00-0.03 [facility] Comment on above: Performed By: #### C BC ####[facility] Nulatjnrcx[address] [place], [place] [address]Dr. Airam Tripathi IG % 0.7 % Critically high 0.0-0.5 [facility] Comment on above: Performed By: #### C BC ####[facility] Zeocalfpxr[address] [place], [place] [address]Dr. Airam Tripathi LYMPH # 1.0 103/ul Critically low 1.2-3.8 [facility] Comment on above: Performed By: #### C BC ####[facility] Zetxgstoxr[address] [place], [place] [address]Dr. Airam Tripathi Lymphocytes/100 WBC (Bld) 13.4 % Critically low 20.5-60.0 [facility] Comment on above: Performed By: #### C BC ####[facility] Lolidsfqod6876 [place] [phone]. Airam Tripathi MANUAL DIFF REQ NO Normal [facility] Comment on above: Performed By: #### C BC ####[facility] Teicigdref4347 [place] [phone]. Airam Tripathi MCH (RBC) [Entitic mass] 28.8 pg Normal 26.7-34.0 [facility] Comment on above: Performed By: #### C BC ####[facility] Xfwojjckak8024 [place] [address]Dr. Airam Tripathi MCHC (RBC) [Mass/Vol] 29.7 g/dL Critically low 29.9-35.2 [facility] Comment on above: Performed By: #### C BC ####[facility] Cemygnoczt9818 [place] [address]Dr. Selenaneil Tripathi MCV (RBC) [Entitic vol] 96.9 fL Normal 81.0-99.0 [facility] Comment on above: Performed By: #### C BC ####[facility] Gwxhxljggc6824 [place] [address]Dr. Airam Deuce MONO # 0.5 103/ul Normal 0.3-0.8 [facility] Comment on above: Performed By: #### C BC ####[facility] Tgkvxspkcr[address] [place], [place] [address]Dr. Airam Tripathi Monocytes/100 WBC (Bld) 6.3 % Normal 1.7-12.0 [facility] Comment on above: Performed By: #### C BC ####[facility] Hogzatjskf1767 [place] [address]Dr. Selenaneil Tripathi NEUT # 5.8 103/ul Normal 1.4-6.5 [facility] Comment on above: Performed By: #### C BC ####[facility] Ednkkvhspq4242 [place] [address]Dr. Airam Tripathi Neutrophils/100 WBC (Bld) 76.6 % Critically high 43.0-75.0 [facility] Comment on above: Performed By: #### C BC ####[facility] Lpssezuxok8104 [place] [phone]. Airam Deuce Platelet mean volume (Bld) [Entitic vol] 10.3 fL Normal 9.5-13.5 [facility] Comment on above: Performed By: #### C BC ####[facility] Timcmmmjmj3637 [place] [phone]. Selenaneil Deuce PLT 265 103/ul Normal 150-450 [facility] Comment on above: Performed By: #### C BC ####[facility] Bzdpahwomn9601 [place] [phone]. Airam Tripathi RBC 3.23 106/ul Critically low 4.20-5.40 [facility] Comment on above: Performed By: #### C BC ####[facility] Dpafrffvso1460 [place] [address]Dr. Airam Tripathi WBC 7.6 103/ul Normal 4.0-11.0 [facility] Comment on above: Performed By: #### C BC ####[facility] Psctdadqpk1807 [place] [address]Dr. Airam Tripathi PROF 14(COMP METB)on 023 Albumin [Mass/Vol] 2.9 g/dL Critically low 3.4-5.0 [facility] Comment on above: Performed By: #### C MP ####[facility] Ynccnsowrh0923 [place] [address]Dr. Airam Tripathi Albumin/Globulin [Mass ratio] 0.8 {ratio} Normal [facility] Comment on above: Performed By: #### C MP ####[facility] Iaypdfnwmn3413 [place] [phone]. Airam Tripathi ALP [Catalytic activity/Vol] 175 U/L Critically high 46-116 [facility] Comment on above: Performed By: #### C MP ####[facility] Xojwbonvhb3421 [place] [address]Dr. Airam Tripathi ALT [Catalytic activity/Vol] 24 U/L Normal 14-59 [facility] Comment on above: Performed By: #### C MP ####[facility] Rgsbghlhld0623 [place] [phone]. Airam Tripathi Anion gap [Moles/Vol] 14.3 mmol/L Normal [facility] Comment on above: Performed By: #### C MP ####[facility] Qzvjemuxfm7751 [place] [address]Dr. Airam Tripathi AST [Catalytic activity/Vol] 25 U/L Normal 15-37 [facility] Comment on above: Performed By: #### C MP ####[facility] Eriiqpfmno6887 [place] [address]Dr. Airam Tripathi Bilirubin [Mass/Vol] 0.2 mg/dL Normal 0.2-1.0 [facility] Comment on above: Performed By: #### C MP ####[facility] Btijebsrej[address] [place], [place] [address]Dr. Airam Tripathi Calcium [Mass/Vol] 8.6 mg/dL Normal 8.5-10.1 [facility] Comment on above: Performed By: #### C MP ####[facility] Nixyilslfk[address] [place], [place] [address]Dr. Airam Tripathi Chloride [Moles/Vol] 102 mmol/L Normal 98-107 [facility] Comment on above: Performed By: #### C MP ####[facility] Natfdpkssq[address] [place], [place] [address]Dr. Airam Tripathi CO2 [Moles/Vol] 23.7 mmol/L Normal 21.0-32.0 [facility] Comment on above: Performed By: #### C MP ####[facility] Lisnxplqtz237[address] [place], [place] [address]Dr. Airam Deuce Creatinine [Mass/Vol] 1.29 mg/dL Critically high 0.55-1.02 [facility] Comment on above: Performed By: #### C MP ####[facility] Jcrxuktpvp[address] [place], [place] [address]Dr. Airam Deuce EGFR-AF GUAMANIAN 51 mL/min/1.73m2 Critically low >=60 [facility] Comment on above: Performed By: #### C MP ####[facility] Amdgiouzuk9754 [place] [phone]. Airam Tripathi EGFR-NON AF GUAMANIAN 42 mL/min/1.73m2 Critically low >=60 [facility] Comment on above: Performed By: #### C MP ####[facility] Ssqhcslpsx2657 [place] [phone]. Airam Tripathi Globulin (S) [Mass/Vol] 3.6 g/dL Normal [facility] Comment on above: Performed By: #### C MP ####[facility] Npakajzeky3554 [place] [phone]. Airam rTipathi Glucose [Mass/Vol] 84 mg/dL Normal 74-106 [facility] Comment on above: Performed By: #### C MP ####[facility] Kyoanfvfzd7773 [place] [address]Dr. Airam Tripathi Potassium [Moles/Vol] 5.0 mmol/L Normal 3.5-5.1 [facility] Comment on above: Performed By: #### C MP ####[facility] Fisfvbtnrk4838 [place] [phone]. Airam Tripathi Protein [Mass/Vol] 6.5 g/dL Normal 6.4-8.2 [facility] Comment on above: Performed By: #### C MP ####[facility] Tlvokfjcmg7411 [place] [address]Dr. Airam Tripathi Sodium [Moles/Vol] 135 mmol/L Critically low 136-145 Th [facility] Comment on above: Performed By: #### C MP ####[facility] Ugjdccrnos6290 [place] [address]Dr. Airam Tripathi Urea nitrogen [Mass/Vol] 28.0 mg/dL Critically high 7.0-18.0 [facility] Comment on above: Performed By: #### C MP ####[facility] Boflmfqiny8257 [place] [address]Dr. Airam Tripathi Urea nitrogen/Creatinine [Mass ratio] 21.7 mg/mg Normal [facility] Comment on above: Performed By: #### C MP ####[facility] Mwvcffnsfj[address] [place], [place] [address]Dr. Selenaneil Deuce XR LSPINE MIN 4 VIEWSon 02-0 XR LSPINE MIN 4 VIEWS Normal [facility] OSMOLALITYon 07-24-2022 Osmolality [Osmolality] 279 mosm/kg Normal 275-295 [facility] Comment on above: Performed By: #### O SMO ####[facility] [facility] Ublkw[address]cil[address] [place], [place] [address]Dr. Airam Tripathi CBC AUTO DIFFon 07-21-2022 BASO # 0.0 103/ul Normal 0.0-0.1 [facility] Comment on above: Performed By: #### C BC ####[facility] Toogiwfhfs[address] [place], [place] [address]Dr. Airam Tripathi Basophils/100 WBC (Bld) 0.4 % Normal 0.2-2.0 [facility] Comment on above: Performed By: #### C BC ####[facility] Lllzyalqwq[address] [place], [place] [address]Dr. Airam Tripathi EO # 0.2 103/ul Normal 0.0-0.7 [facility] Comment on above: Performed By: #### C BC ####[facility] Bkkrqskhyd143[address] [place], [place] [address]Dr. Airam Tripathi Eosinophils/100 WBC (Bld) 2.3 % Normal 0.9-7.0 [facility] Comment on above: Performed By: #### C BC ####[facility] Xkmhdzmgrb[address] [place], [place] [address]Dr. Airam Tripathi Erythrocyte distribution width (RBC) [Ratio] 13.6 % Normal 11.0-15.0 [facility] Comment on above: Performed By: #### C BC ####[facility] Qduanlyypk008[address] [place], [place] [address]Dr. Airam Tripathi Hematocrit (Bld) [Volume fraction] 32.6 % Critically low 36.0-48.0 [facility] Comment on above: Performed By: #### C BC ####[facility] Ceudhysxir[address] [place], [place] [address]Dr. Airam Tripathi Hemoglobin (Bld) [Mass/Vol] 9.5 g/dL Critically low 12.0-16.0 [facility] Comment on above: Performed By: #### C BC ####[facility] [address] [place] [address]Dr. Airam Tripathi IG # 0.03 10e3/ul Normal 0.00-0.03 [facility] Comment on above: Performed By: #### C BC ####[facility] Iw[address]gkgjb[address] [place] [address]DrKianna Tripathi IG % 0.4 % Normal 0.0-0.5 [facility] Comment on above: Performed By: #### C BC ####[facility] Ruhmutqqzl[address] [place], [place] [address]DrKianna Tripathi LYMPH # 1.4 103/ul Normal 1.2-3.8 [facility] Comment on above: Performed By: #### C BC ####[facility] Zylbishlfn608[address] [place], [place] [address]DrKianna Tripathi Lymphocytes/100 WBC (Bld) 18.2 % Critically low 20.5-60.0 [facility] Comment on above: Performed By: #### C BC ####[facility] Osixgpyroc[address] [place], [place] [address]DrKianna Tripathi MANUAL DIFF REQ NO Normal [facility] Comment on above: Performed By: #### C BC ####[facility] Jpbpmwxeqq[address] [place] [address]DrKianna Tripathi MCH (RBC) [Entitic mass] 29.5 pg Normal 26.7-34.0 [facility] Comment on above: Performed By: #### C BC ####[facility] Ug[address]kzlh[address] [place] [address]DrKianna Tripathi MCHC (RBC) [Mass/Vol] 29.1 g/dL Critically low 29.9-35.2 [facility] Comment on above: Performed By: #### C BC ####[facility] Lndxrrqbci[address] [place] [address]DrKianna Tripathi MCV (RBC) [Entitic vol] 101.2 fL Critically high 81.0-99.0 [facility] Comment on above: Performed By: #### C BC ####[facility] Udoopeqywq[address] [place] [address]DrKianna Tripathi MONO # 0.6 103/ul Normal 0.3-0.8 [facility] Comment on above: Performed By: #### C BC ####[facility] Gudppciqyi[address] [place] [address]DrKianna Tripathi Monocytes/100 WBC (Bld) 7.9 % Normal 1.7-12.0 [facility] Comment on above: Performed By: #### C BC ####[facility] Fqbjmfogda[address] [place], [place] [address]DriKanna Tripathi NEUT # 5.5 103/ul Normal 1.4-6.5 [facility] Comment on above: Performed By: #### C BC ####[facility] Klbrgximfo674[address] [place], [place] [address]DrKianna Tripathi Neutrophils/100 WBC (Bld) 70.8 % Normal 43.0-75.0 [facility] Comment on above: Performed By: #### C BC ####[facility] Mqvibrhvpn299[address] [place], [place] [address]DrKianna Tripathi Platelet mean volume (Bld) [Entitic vol] 9.6 fL Normal 9.5-13.5 [facility] Comment on above: Performed By: #### C BC ####[facility] Hqupaaohcc[address] [place], [place] [address]Dr. Airam Tripathi PLT 265 103/ul Normal 150-450 [facility] Comment on above: Performed By: #### C BC ####[facility] Mwrkfgnlra[address] [place], [place] [id number] Tripathi RBC 3.22 106/ul Critically low 4.20-5.40 [facility] Comment on above: Performed By: #### C BC ####[facility] Qbhlqiixhd35[address] [place] [id number] Tripathi WBC 7.8 103/ul Normal 4.0-11.0 [facility] Comment on above: Performed By: #### C BC ####[facility] Eimzadkuoo[address] [place] [address]DrKianna Tripathi PROF 14(COMP METB)on 023 Albumin [Mass/Vol] 2.9 g/dL Critically low 3.4-5.0 [facility] Comment on above: Performed By: #### C MP ####[facility] Lhfqilddjs[address] [place] [address]DrKianna Tripathi Albumin/Globulin [Mass ratio] 0.9 {ratio} Normal [facility] Comment on above: Performed By: #### C MP ####[facility] Nkumtmsneu[address] [place] [address]DrKianna Tripathi ALP [Catalytic activity/Vol] 176 U/L Critically high 46-116 [facility] Comment on above: Performed By: #### C MP ####[facility] Qhvpsywcsc[address] [place], [place] [address]DrKianna Tripathi ALT [Catalytic activity/Vol] 19 U/L Normal 14-59 [facility] Comment on above: Performed By: #### C MP ####[facility] Pqaarqwagv27[address] [place] [address]DrKianna Tripathi Anion gap [Moles/Vol] 12.6 mmol/L Normal [facility] Comment on above: Performed By: #### C MP ####[facility] Speqtpyvnz70[address] [place] [address]DrKianna Tripathi AST [Catalytic activity/Vol] 25 U/L Normal 15-37 [facility] Comment on above: Performed By: #### C MP ####[facility] Yyflepypsh30[address] [place] [address]DrKianna Tripathi Bilirubin [Mass/Vol] 0.2 mg/dL Normal 0.2-1.0 [facility] Comment on above: Performed By: #### C MP ####[facility] Dilafparey[address] [place] [address]DrKianna Tripathi Calcium [Mass/Vol] 8.5 mg/dL Normal 8.5-10.1 [facility] Comment on above: Performed By: #### C MP ####[facility] Saz[address]ajacxy[address] [place] [address]Dr. Airam Tripathi Chloride [Moles/Vol] 101 mmol/L Normal 98-107 [facility] Comment on above: Performed By: #### C MP ####[facility] Drahrhusjr75[address] [place] [address]Dr. Airam Tripathi CO2 [Moles/Vol] 25.9 mmol/L Normal 21.0-32.0 [facility] Comment on above: Performed By: #### C MP ####[facility] Atyuikxhbw14[address] [place] [address]Dr. Airam Tripathi Creatinine [Mass/Vol] 1.11 mg/dL Critically high 0.55-1.02 [facility] Comment on above: Performed By: #### C MP ####[facility] Bkagjybpso[address] [place], [place] [address]Dr. Airam Tripathi EGFR-AF GUAMANIAN >60 Normal >=60 [facility] Comment on above: Performed By: #### C MP ####[facility] Ewnpzewwey[address] [place], [place] [address]Dr. Airam Tripathi EGFR-NON AF GUAMANIAN 50 mL/min/1.73m2 Critically low >=60 [facility] Comment on above: Performed By: #### C MP ####[facility] Mcrzcrbvsc076[address] [place], [place] [address]Dr. Airam Tripathi Globulin (S) [Mass/Vol] 3.2 g/dL Normal [facility] Comment on above: Performed By: #### C MP ####[facility] Uxbtenpqcx[address] [place] [address]Dr. Airam Tripathi Glucose [Mass/Vol] 80 mg/dL Normal 74-106 [facility] Comment on above: Performed By: #### C MP ####[facility] Pdchazyqvv6959 [place] [address]Dr. Airam Tripathi Potassium [Moles/Vol] 3.5 mmol/L Normal 3.5-5.1 [facility] Comment on above: Performed By: #### C MP ####[facility] Sorsxndole[address] [place] [id number]. Airam Tripathi Protein [Mass/Vol] 6.1 g/dL Critically low 6.4-8.2 [facility] Comment on above: Performed By: #### C MP ####[facility] Gprznldjfn11[address] [place] [phone]. Airam Deuce Sodium [Moles/Vol] 136 mmol/L Normal 136-145 [facility] Comment on above: Performed By: #### C MP ####[facility] Zqwwwbjquh73[address] [place], [place] [address]Dr. Airam Deuce Urea nitrogen [Mass/Vol] 31.0 mg/dL Critically high 7.0-18.0 [facility] Comment on above: Performed By: #### C MP ####[facility] Rzezatvwjl[address] [place], [place] [address]Dr. Airam Tripathi Urea nitrogen/Creatinine [Mass ratio] 27.9 mg/mg Normal [facility] Comment on above: Performed By: #### C MP ####[facility] Vmwufiwznu[address] [place], [place] [address]Dr. Airam Deuce OSMOLALITYon 07-19-2022 Osmolality [Osmolality] 285 mosm/kg Normal 275-295 [facility] Comment on above: Performed By: #### O SMO ####[facility] Djvzfqypuj464[address] [place], [place] [address]Dr. Airam Deuce CBC AUTO DIFFon 07-15-2022 BASO # 0.0 103/ul Normal 0.0-0.1 [facility] Comment on above: Performed By: #### C BC ####[facility] Wfuiczxpaf[address] [place], [place] [address]Dr. Selenaneil Tripathi Basophils/100 WBC (Bld) 0.2 % Normal 0.2-2.0 [facility] Comment on above: Performed By: #### C BC ####[facility] Ewsfkvpgcb[address] [place], [place] [address]Dr. Airam Tripathi EO # 0.1 103/ul Normal 0.0-0.7 [facility] Comment on above: Performed By: #### C BC ####[facility] Nfrbsoqkco64[address] [place] [address]Dr. Airam Tripathi Eosinophils/100 WBC (Bld) 1.4 % Normal 0.9-7.0 [facility] Comment on above: Performed By: #### C BC ####[facility] Szqeexetlc737[address] [place], [place] [address]Dr. Airam Tripathi Erythrocyte distribution width (RBC) [Ratio] 13.0 % Normal 11.0-15.0 [facility] Comment on above: Performed By: #### C BC ####[facility] Iogqayocsv384[address] [place], [place] [address]Dr. Airam Tripathi Hematocrit (Bld) [Volume fraction] 29.3 % Critically low 36.0-48.0 [facility] Comment on above: Performed By: #### C BC ####[facility] Ufmhhyydua165[address] [place], [place] [address]Dr. Airam Tripathi Hemoglobin (Bld) [Mass/Vol] 10.3 g/dL Critically low 12.0-16.0 [facility] Comment on above: Performed By: #### C BC ####[facility] Achvpffpwy9[address] [place], [place] [address]DrKianna Airam Tripathi IG # 0.05 10e3/ul Critically high 0.00-0.03 [facility] Comment on above: Performed By: #### C BC ####[facility] Gukdsnfshh[address] [place], [place] [address]Dr. Airam Tripathi IG % 0.6 % Critically high 0.0-0.5 [facility] Comment on above: Performed By: #### C BC ####[facility] Ldwcruxbty[address] [place], [place] [address]DrKianna Airam Deuce LYMPH # 0.9 103/ul Critically low 1.2-3.8 [facility] Comment on above: Performed By: #### C BC ####[facility] Smpsremyyj474[address] [place], [place] [address]Dr. Airam Deuce Lymphocytes/100 WBC (Bld) 10.6 % Critically low 20.5-60.0 [facility] Comment on above: Performed By: #### C BC ####[facility] Aqlhvlujnc[address] [place] [address]DrKianna Tripathi MANUAL DIFF REQ NO Normal [facility] Comment on above: Performed By: #### C BC ####[facility] Pgadpuinaj4604 [place] [address]Dr. Airam Tripathi MCH (RBC) [Entitic mass] 29.3 pg Normal 26.7-34.0 [facility] Comment on above: Performed By: #### C BC ####[facility] Cotguzzjtg[address] [place], [place] [address]DrKianna Tripathi MCHC (RBC) [Mass/Vol] 35.2 g/dL Normal 29.9-35.2 [facility] Comment on above: Performed By: #### C BC ####[facility] Wjnnzdzoeg[address] [place], [place] [address]DrKianna Tripathi MCV (RBC) [Entitic vol] 83.5 fL Normal 81.0-99.0 [facility] Comment on above: Performed By: #### C BC ####[facility] Oszjlcozpf[address] [place], [place] [address]DrKianna Tripathi MONO # 0.5 103/ul Normal 0.3-0.8 [facility] Comment on above: Performed By: #### C BC ####[facility] Uqbcovhigu676[address] [place], [place] [address]DrKianna Tripathi Monocytes/100 WBC (Bld) 5.1 % Normal 1.7-12.0 [facility] Comment on above: Performed By: #### C BC ####[facility] Nnjcbyvkrb42[address] [place], [place] [address]DrKianna Tripathi NEUT # 7.3 103/ul Critically high 1.4-6.5 [facility] Comment on above: Performed By: #### C BC ####[facility] Qcfzbkamdq696[address] [place], [place] [address]DrKianna Tripathi Neutrophils/100 WBC (Bld) 82.1 % Critically high 43.0-75.0 [facility] Comment on above: Performed By: #### C BC ####[facility] Tjctqhylnl09[address] [place] [address]Dr. Airam Tripathi Platelet mean volume (Bld) [Entitic vol] 8.9 fL Critically low 9.5-13.5 [facility] Comment on above: Performed By: #### C BC ####[facility] Gwniiwuldm97[address] [place] [address]Dr. Airam Tripathi PLT 290 103/ul Normal 150-450 [facility] Comment on above: Performed By: #### C BC ####[facility] Firijvnkvs95[address] [place], [place] [address]DrKianna Tripathi RBC 3.51 106/ul Critically low 4.20-5.40 [facility] Comment on above: Performed By: #### C BC ####[facility] Herngozxun[address] [place], [place] [address]Dr. Airam Tripathi WBC 8.9 103/ul Normal 4.0-11.0 [facility] Comment on above: Performed By: #### C BC ####[facility] Xnexwdvuag819[address] [place], [place] [address]Dr. Airam Tripathi PROF 14(COMP METB)on 023 Albumin [Mass/Vol] 3.2 g/dL Critically low 3.4-5.0 [facility] Comment on above: Performed By: #### C MP ####[facility] Agqhndvqca132[address] [place], [place] [address]Dr. Airam Tripathi Albumin/Globulin [Mass ratio] 0.9 {ratio} Normal [facility] Comment on above: Performed By: #### C MP ####[facility] Ljmsnrmrid[address] [place], [place] [address]Dr. Airam Tripathi ALP [Catalytic activity/Vol] 194 U/L Critically high 46-116 [facility] Comment on above: Performed By: #### C MP ####[facility] Uhkgwdckyi904[address] [place], [place] [address]Dr. Airam Tripathi ALT [Catalytic activity/Vol] 19 U/L Normal 14-59 [facility] Comment on above: Performed By: #### C MP ####[facility] Hqzhlbfqqy98[address] [place] [address]Dr. Airam Tripathi Anion gap [Moles/Vol] 11.3 mmol/L Normal [facility] Comment on above: Performed By: #### C MP ####[facility] Rnrdjexequ5769 [place] [address]Dr. Airam Deuce AST [Catalytic activity/Vol] 24 U/L Normal 15-37 [facility] Comment on above: Performed By: #### C MP ####[facility] Ihojsrdykp609[address] [place], [place] [address]Dr. Airam Deuce Bilirubin [Mass/Vol] 0.2 mg/dL Normal 0.2-1.0 [facility] Comment on above: Performed By: #### C MP ####[facility] Ltkgysbrhx288[address] [place], [place] [address]Dr. Airam Deuce Calcium [Mass/Vol] 8.7 mg/dL Normal 8.5-10.1 [facility] Comment on above: Performed By: #### C MP ####[facility] Rhkwvmlsad718[address] [place], [place] [address]Dr. Airam Deuce Chloride [Moles/Vol] 101 mmol/L Normal 98-107 [facility] Comment on above: Performed By: #### C MP ####[facility] Wtxdbedodc614[address] [place], [place] [address]Dr. Airam Deuce CO2 [Moles/Vol] 27.2 mmol/L Normal 21.0-32.0 [facility] Comment on above: Performed By: #### C MP ####[facility] Xtnrcyhtcl[address] [place], [place] [address]Dr. Airam Deuce Creatinine [Mass/Vol] 1.17 mg/dL Critically high 0.55-1.02 [facility] Comment on above: Performed By: #### C MP ####[facility] Kmjcvqdojm30[address] [place], [place] [address]Dr. Airam Deuce EGFR-AF GUAMANIAN 57 mL/min/1.73m2 Critically low >=60 [facility] Comment on above: Performed By: #### C MP ####[facility] Feabralgxt[address] [place] [address]Dr. Airam Tripathi EGFR-NON AF GUAMANIAN 47 mL/min/1.73m2 Critically low >=60 [facility] Comment on above: Performed By: #### C MP ####[facility] Drofgcuifo5785 [place] [address]Dr. Airam Deuce Globulin (S) [Mass/Vol] 3.5 g/dL Normal [facility] Comment on above: Performed By: #### C MP ####[facility] Nozbcapsdo0288 [place] [address]Dr. Airam Deuce Glucose [Mass/Vol] 86 mg/dL Normal 74-106 [facility] Comment on above: Performed By: #### C MP ####[facility] Pgtfcgqfjh430[address] [place], [place] [address]Dr. Airam Deuce Potassium [Moles/Vol] 5.5 mmol/L Critically high 3.5-5.1 [facility] Comment on above: Performed By: #### C MP ####[facility] Egrdsqvctz8[address] [place], [place] [address]Dr. Airam Deuce Protein [Mass/Vol] 6.7 g/dL Normal 6.4-8.2 [facility] Comment on above: Performed By: #### C MP ####[facility] Wgxufqgkqs823[address] [place], [place] [address]Dr. Selenaneil Deuce Sodium [Moles/Vol] 134 mmol/L Critically low 136-145 [facility] Comment on above: Performed By: #### C MP ####[facility] Jzdtutzoey48[address] [place], [place] [address]Dr. Selenaneil Deuce Urea nitrogen [Mass/Vol] 26.0 mg/dL Critically high 7.0-18.0 [facility] Comment on above: Performed By: #### C MP ####[facility] Bgsrctsbca[address] [place], [place] [address]Dr. Airam Tripathi Urea nitrogen/Creatinine [Mass ratio] 22.2 mg/mg Normal [facility] Comment on above: Performed By: #### C MP ####[facility] Cxoemmfswy[address] [place], [place] [address]DrKianna Tripathi OSMOLALITYon 07-08-2022 Osmolality [Osmolality] 273 mosm/kg Critically low 275-295 [facility] Comment on above: Performed By: #### O SMO ####[facility] Tnalrpjxrw[address] [place], [place] [address]DrKianna Tripathi CBC AUTO DIFFon 07-07-2022 BASO # 0.0 103/ul Normal 0.0-0.1 [facility] Comment on above: Performed By: #### C BC ####[facility] Gmybbwujng[address] [place], [place] [address]DrKianna Tripathi Basophils/100 WBC (Bld) 0.4 % Normal 0.2-2.0 [facility] Comment on above: Performed By: #### C BC ####[facility] Hqfxqwknbr[address] [place], [place] [address]DrKianna Tripathi EO # 0.1 103/ul Normal 0.0-0.7 [facility] Comment on above: Performed By: #### C BC ####[facility] Ceicsmlfcq380[address] [place], [place] [address]DrKianna Tripathi Eosinophils/100 WBC (Bld) 1.6 % Normal 0.9-7.0 [facility] Comment on above: Performed By: #### C BC ####[facility] Edvgfmbils[address] [place], [place] [address]DrKianna Tripathi Erythrocyte distribution width (RBC) [Ratio] 13.1 % Normal 11.0-15.0 [facility] Comment on above: Performed By: #### C BC ####[facility] Mfxucudsbx[address] [place], [place] [address]DrKianna Tripathi Hematocrit (Bld) [Volume fraction] 33.7 % Critically low 36.0-48.0 [facility] Comment on above: Performed By: #### C BC ####[facility] Arxlfsahwv5[address] [place], [place] [address]DrKianna Tripathi Hemoglobin (Bld) [Mass/Vol] 9.9 g/dL Critically low 12.0-16.0 [facility] Comment on above: Performed By: #### C BC ####[facility] Aywuwywjip[address] [place] [address]DrKianna Tripathi IG # 0.05 10e3/ul Critically high 0.00-0.03 [facility] Comment on above: Performed By: #### C BC ####[facility] Ifapncxraq[address] [place], [place] [address]DrKianna Tripathi IG % 0.6 % Critically high 0.0-0.5 [facility] Comment on above: Performed By: #### C BC ####[facility] Ditlndqlzx407[address] [place], [place] [address]DrKianna Tripathi LYMPH # 1.2 103/ul Normal 1.2-3.8 [facility] Comment on above: Performed By: #### C BC ####[facility] Jeefvoyrei[address] [place], [place] [address]DrKianna Tripathi Lymphocytes/100 WBC (Bld) 15.5 % Critically low 20.5-60.0 [facility] Comment on above: Performed By: #### C BC ####[facility] Bukkvqbsbr[address] [place], [place] [address]DrKianna Tripathi MANUAL DIFF REQ NO Normal [facility] Comment on above: Performed By: #### C BC ####[facility] Jgiacngckn[address] [place], [place] [address]DrKianna Tripathi MCH (RBC) [Entitic mass] 28.7 pg Normal 26.7-34.0 [facility] Comment on above: Performed By: #### C BC ####[facility] Xslshcpwid[address] [place], [place] [address]DrKianna Tripathi MCHC (RBC) [Mass/Vol] 29.4 g/dL Critically low 29.9-35.2 [facility] Comment on above: Performed By: #### C BC ####[facility] Szcefnpqnr9[address] [place], [place] [address]DrKianna Tripathi MCV (RBC) [Entitic vol] 97.7 fL Normal 81.0-99.0 [facility] Comment on above: Performed By: #### C BC ####[facility] Fjymaandmr[address] [place], [place] [address]DrKianna Tripathi MONO # 0.6 103/ul Normal 0.3-0.8 [facility] Comment on above: Performed By: #### C BC ####[facility] Ambuqhatsg5[address] [place], [place] [address]DrKianna Airam Tripathi Monocytes/100 WBC (Bld) 7.7 % Normal 1.7-12.0 [facility] Comment on above: Performed By: #### C BC ####[facility] Zlsnswlaxy[address] [place], [place] [address]DrKianna Airam Tripathi NEUT # 5.9 103/ul Normal 1.4-6.5 [facility] Comment on above: Performed By: #### C BC ####[facility] Pxydumkgaa[address] [place], [place] [address]DrKianna Airam Tripathi Neutrophils/100 WBC (Bld) 74.2 % Normal 43.0-75.0 [facility] Comment on above: Performed By: #### C BC ####[facility] Nskkizfngd[address] [place], [place] [address]DrKianna Airam Tripathi Platelet mean volume (Bld) [Entitic vol] 9.4 fL Critically low 9.5-13.5 [facility] Comment on above: Performed By: #### C BC ####[facility] Tty[address] [place], [place] [address]DrKianna Airam Tripathi PLT 331 103/ul Normal 150-450 [facility] Comment on above: Performed By: #### C BC ####[facility] Sruwezthnd[address] [place], [place] [address]DrKianna Airam Deuce RBC 3.45 106/ul Critically low 4.20-5.40 [facility] Comment on above: Performed By: #### C BC ####[facility] Zwlncctvyr[address] [place], [place] [address]Dr. Airam Tripathi WBC 7.9 103/ul Normal 4.0-11.0 [facility] Comment on above: Performed By: #### C BC ####[facility] Yspvurjayh[address] [place], [place] [address]Dr. Airam Tripathi PROF 14(COMP METB)on 023 Albumin [Mass/Vol] 3.4 g/dL Normal 3.4-5.0 [facility] Comment on above: Performed By: #### C MP ####[facility] Lkzqbwgdhn[address] [place], [place] [address]Dr. Airam Tripathi Albumin/Globulin [Mass ratio] 1.1 {ratio} Normal [facility] Comment on above: Performed By: #### C MP ####[facility] Nijprzaein[address] [place], [place] [address]Dr. Airam Tripathi ALP [Catalytic activity/Vol] 197 U/L Critically high 46-116 [facility] Comment on above: Performed By: #### C MP ####[facility] Spkqwfqhpe[address] [place], [place] [address]Dr. Airam Tripathi ALT [Catalytic activity/Vol] 18 U/L Normal 14-59 [facility] Comment on above: Performed By: #### C MP ####[facility] Qtpwdoslto[address] [place], [place] [address]Dr. Airam Tripathi Anion gap [Moles/Vol] 12.3 mmol/L Normal [facility] Comment on above: Performed By: #### C MP ####[facility] Axqxulhbzc[address] [place], [place] [address]Dr. Airam Tripathi AST [Catalytic activity/Vol] 26 U/L Normal 15-37 [facility] Comment on above: Performed By: #### C MP ####[facility] Wzlhrojwxo[address] [place], [place] [address]Dr. Airam Tripathi Bilirubin [Mass/Vol] 0.3 mg/dL Normal 0.2-1.0 [facility] Comment on above: Performed By: #### C MP ####[facility] Vtppuxqwbr[address] [place], [place] [address]Dr. Airam Tripathi Calcium [Mass/Vol] 8.6 mg/dL Normal 8.5-10.1 [facility] Comment on above: Performed By: #### C MP ####[facility] [address] [place] [address]Dr. Airam Tripathi Chloride [Moles/Vol] 96 mmol/L Critically low 98-107 [facility] Comment on above: Performed By: #### C MP ####[facility] Wyuhhehles[address] [place], [place] [address]Dr. Airam Tripathi CO2 [Moles/Vol] 27.8 mmol/L Normal 21.0-32.0 [facility] Comment on above: Performed By: #### C MP ####[facility] Ixxasoqcpr[address] [place], [place] [address]Dr. Airam Tripathi Creatinine [Mass/Vol] 1.55 mg/dL Critically high 0.55-1.02 [facility] Comment on above: Performed By: #### C MP ####[facility] Wozqbrxzns[address] [place], [place] [address]Dr. Airam Tripathi EGFR-AF GUAMANIAN 41 mL/min/1.73m2 Critically low >=60 [facility] Comment on above: Performed By: #### C MP ####[facility] Ygjbawqsrp[address] [place], [place] [address]Dr. Airam Tripathi EGFR-NON AF GUAMANIAN 34 mL/min/1.73m2 Critically low >=60 [facility] Comment on above: Performed By: #### C MP ####[facility] Uznengjcap[address] [place], [place] [address]Dr. Airam Tripathi Globulin (S) [Mass/Vol] 3.2 g/dL Normal [facility] Comment on above: Performed By: #### C MP ####[facility] Xnrrxbsfej[address] [place], [place] [address]Dr. Airam Tripathi Glucose [Mass/Vol] 87 mg/dL Normal 74-106 [facility] Comment on above: Performed By: #### C MP ####[facility] Upeebucyok8[address] [place], [place] [address]Dr. Airam Tripathi Potassium [Moles/Vol] 5.1 mmol/L Normal 3.5-5.1 [facility] Comment on above: Performed By: #### C MP ####[facility] Yyrkymxomt[address] [place], [place] [address]DrKianna Tripathi Protein [Mass/Vol] 6.6 g/dL Normal 6.4-8.2 [facility] Comment on above: Performed By: #### C MP ####[facility] Cuudjqgdoo[address] [place], [place] [address]DrKianna Tripathi Sodium [Moles/Vol] 131 mmol/L Critically low 136-145 [facility] Comment on above: Performed By: #### C MP ####[facility] Lyozwbywyo[address] [place], [place] [address]DrKianna Tripathi Urea nitrogen [Mass/Vol] 31.0 mg/dL Critically high 7.0-18.0 [facility] Comment on above: Performed By: #### C MP ####[facility] Gbliritaiw[address] [place], [place] [address]DrKianna Tripathi Urea nitrogen/Creatinine [Mass ratio] 20.0 mg/mg Normal [facility] Comment on above: Performed By: #### C MP ####[facility] Xyzlrcmhtw[address] [place], [place] [address]DrKianna Tripathi OSMOLALITYon 07-02-2022 Osmolality [Osmolality] 281 mosm/kg Normal 275-295 [facility] Comment on above: Performed By: #### O SMO ####[facility] Gsnszsaizd[address] [place], [place] [address]DrKianna Tripathi CBC AUTO DIFFon 06-29-2022 BASO # 0.0 103/ul Normal 0.0-0.1 [facility] Comment on above: Performed By: #### C BC ####[facility] Tuhbyfunqs[address] [place], [place] [address]DrKianna Tripathi Basophils/100 WBC (Bld) 0.3 % Normal 0.2-2.0 [facility] Comment on above: Performed By: #### C BC ####[facility] Tdoaldunxb[address] [place], [place] [address]Dr. Airam Tripathi EO # 0.2 103/ul Normal 0.0-0.7 [facility] Comment on above: Performed By: #### C BC ####[facility] [address] [place] [address]Dr. Airam Tripathi Eosinophils/100 WBC (Bld) 2.3 % Normal 0.9-7.0 [facility] Comment on above: Performed By: #### C BC ####[facility] Khymzwsoko[address] [place] [address]Dr. Airam Tripathi Erythrocyte distribution width (RBC) [Ratio] 13.2 % Normal 11.0-15.0 [facility] Comment on above: Performed By: #### C BC ####[facility] Xitwzymwgi9[address] [place], [place] [address]Dr. Airam Tripathi Hematocrit (Bld) [Volume fraction] 28.2 % Critically low 36.0-48.0 [facility] Comment on above: Performed By: #### C BC ####[facility] Uolytnmgpy[address] [place], [place] [address]Dr. Airam Tripathi Hemoglobin (Bld) [Mass/Vol] 9.1 g/dL Critically low 12.0-16.0 [facility] Comment on above: Performed By: #### C BC ####[facility] Hzacftmypj[address] [place], [place] [address]Dr. Airam Tripathi IG # 0.03 10e3/ul Normal 0.00-0.03 [facility] Comment on above: Performed By: #### C BC ####[facility] Tldlautqbu[address] [place], [place] [address]Dr. Airam Tripathi IG % 0.4 % Normal 0.0-0.5 [facility] Comment on above: Performed By: #### C BC ####[facility] Gnopfuhazk[address] [place], [place] [address]Dr. Airam Tripathi LYMPH # 1.0 103/ul Critically low 1.2-3.8 [facility] Comment on above: Performed By: #### C BC ####[facility] Fuotyapiyv[address] [place], [place] [address]Dr. Airam Tripathi Lymphocytes/100 WBC (Bld) 12.8 % Critically low 20.5-60.0 [facility] Comment on above: Performed By: #### C BC ####[facility] [address] [place] [address]DrKianna Tripathi MANUAL DIFF REQ NO Normal [facility] Comment on above: Performed By: #### C BC ####[facility] Omfun[address]vyb[address] [place] [address]Dr. Airam Tripathi MCH (RBC) [Entitic mass] 29.9 pg Normal 26.7-34.0 [facility] Comment on above: Performed By: #### C BC ####[facility] [address]zpsubr[address] [place] [address]Dr. Airam Tripathi MCHC (RBC) [Mass/Vol] 32.3 g/dL Normal 29.9-35.2 [facility] Comment on above: Performed By: #### C BC ####[facility] [address] [place] [address]Dr. Airam Tripathi MCV (RBC) [Entitic vol] 92.8 fL Normal 81.0-99.0 [facility] Comment on above: Performed By: #### C BC ####[facility] Rtedfyruus[address] [place] [address]Dr. Airam Tripathi MONO # 0.5 103/ul Normal 0.3-0.8 [facility] Comment on above: Performed By: #### C BC ####[facility] P[address]ptsj[address] [place] [address]Dr. Airam Tripathi Monocytes/100 WBC (Bld) 6.0 % Normal 1.7-12.0 [facility] Comment on above: Performed By: #### C BC ####[facility] [address]dkk[address] [place] [address]DrKianna Tripathi NEUT # 6.0 103/ul Normal 1.4-6.5 [facility] Comment on above: Performed By: #### C BC ####[facility] Tyrzemtrgy[address] [place], [place] [address]Dr. Airam Deuce Neutrophils/100 WBC (Bld) 78.2 % Critically high 43.0-75.0 [facility] Comment on above: Performed By: #### C BC ####[facility] K[address]zxu[address] [place] [address]Dr. Airam Tripathi Platelet mean volume (Bld) [Entitic vol] 9.0 fL Critically low 9.5-13.5 [facility] Comment on above: Performed By: #### C BC ####[facility] [address] [place] [address]Dr. Airam Tripathi PLT 332 103/ul Normal 150-450 [facility] Comment on above: Performed By: #### C BC ####[facility] N[address]chuwwyd[address] [place] [address]Dr. Selenaneil Deuce RBC 3.04 106/ul Critically low 4.20-5.40 [facility] Comment on above: Performed By: #### C BC ####[facility] Dzvioyorbs[address] [place], [place] [address]Dr. Selenaneil Deuce WBC 7.7 103/ul Normal 4.0-11.0 [facility] Comment on above: Performed By: #### C BC ####[facility] [address]fr[address]wr[address] [place] [address]Dr. Airam Tripathi PROF 14(COMP METB)on 023 Albumin [Mass/Vol] 3.2 g/dL Critically low 3.4-5.0 [facility] Comment on above: Performed By: #### C MP ####[facility] B[address]wpokea[address] [place] [address]Dr. Airam Tripathi Albumin/Globulin [Mass ratio] 0.9 {ratio} Normal [facility] Comment on above: Performed By: #### C MP ####[facility] Rllbygpodj[address] [place] [address]Dr. Selenaneil Deuce ALP [Catalytic activity/Vol] 135 U/L Critically high 46-116 [facility] Comment on above: Performed By: #### C MP ####[facility] Piykqxsfnv[address] [place] [address]Dr. Airam Deuce ALT [Catalytic activity/Vol] 25 U/L Normal 14-59 [facility] Comment on above: Performed By: #### C MP ####[facility] Isvsxmdlrv6[address] [place] [address]Dr. Airam Tripathi Anion gap [Moles/Vol] 9.1 mmol/L Normal [facility] Comment on above: Performed By: #### C MP ####[facility] Xyvcbnwrua[address] [place], [place] [address]Dr. Airam Deuce AST [Catalytic activity/Vol] 34 U/L Normal 15-37 [facility] Comment on above: Performed By: #### C MP ####[facility] Fnffoiedwy[address] [place], [place] [address]Dr. Airam Deuce Bilirubin [Mass/Vol] 0.3 mg/dL Normal 0.2-1.0 [facility] Comment on above: Performed By: #### C MP ####[facility] Kuilokpndb[address] [place], [place] [address]Dr. Airam Deuce Calcium [Mass/Vol] 8.6 mg/dL Normal 8.5-10.1 [facility] Comment on above: Performed By: #### C MP ####[facility] Enwscrwezb[address] [place], [place] [address]Dr. Airam Deuce Chloride [Moles/Vol] 99 mmol/L Normal 98-107 [facility] Comment on above: Performed By: #### C MP ####[facility] Bymerpqduv[address] [place], [place] [address]Dr. Airam Deuce CO2 [Moles/Vol] 29.1 mmol/L Normal 21.0-32.0 [facility] Comment on above: Performed By: #### C MP ####[facility] Bekosmejwf247[address] [place], [place] [address]Dr. Airam Deuce Creatinine [Mass/Vol] 1.40 mg/dL Critically high 0.55-1.02 [facility] Comment on above: Performed By: #### C MP ####[facility] Ucvjjdybzj[address] [place], [place] [address]Dr. Airam Tripathi EGFR-AF GUAMANIAN 46 mL/min/1.73m2 Critically low >=60 [facility] Comment on above: Performed By: #### C MP ####[facility] Fzqmnhbzvn64[address] [place] [address]Dr. Airam Deuce EGFR-NON AF GUAMANIAN 38 mL/min/1.73m2 Critically low >=60 [facility] Comment on above: Performed By: #### C MP ####[facility] Usgosklovh[address] [place] [address]Dr. Airam Deuce Globulin (S) [Mass/Vol] 3.4 g/dL Normal [facility] Comment on above: Performed By: #### C MP ####[facility] Ipldzmtoyg9[address] [place], [place] [address]Dr. Selenaneil Deuce Glucose [Mass/Vol] 83 mg/dL Normal 74-106 [facility] Comment on above: Performed By: #### C MP ####[facility] Hsxwtlndfb4[address] [place] [address]Dr. Selenaneil Deuce Potassium [Moles/Vol] 4.2 mmol/L Normal 3.5-5.1 [facility] Comment on above: Performed By: #### C MP ####[facility] Adxlsgnggj8[address] [place] [address]Dr. Airam Tripathi Protein [Mass/Vol] 6.6 g/dL Normal 6.4-8.2 [facility] Comment on above: Performed By: #### C MP ####[facility] Noknydzyvs[address] [place] [address]Dr. Airam Deuce Sodium [Moles/Vol] 133 mmol/L Critically low 136-145 [facility] Comment on above: Performed By: #### C MP ####[facility] Muwxuitijb[address] [place] [address]Dr. Airam Tripathi Urea nitrogen [Mass/Vol] 37.0 mg/dL Critically high 7.0-18.0 [facility] Comment on above: Performed By: #### C MP ####[facility] Zsatwxjvdm[address] [place], [place] [address]Dr. Airam Tripathi Urea nitrogen/Creatinine [Mass ratio] 26.4 mg/mg Normal [facility] Comment on above: Performed By: #### C MP ####[facility] Nljriefpvf[address] [place], [place] [address]Dr. Airam Tripathi BNPon 06-18-2022 Natriuretic peptide B (Bld) [Mass/Vol] 5826.0 pg/mL Critically high <=900.0 [facility] Comment on above: Performed By: #### B HEADING MACHINE OPERATOR, CMP ####[facility] Jlausbzppe[address] [place], [place] [address]Dr. Airam Tripathi CBC AUTO DIFFon 06-18-2022 BASO # 0.0 103/ul Normal 0.0-0.1 [facility] Comment on above: Performed By: #### C BC ####[facility] Hcdqmgqslj[address] [place], [place] [address]Dr. Airam Tripathi Basophils/100 WBC (Bld) 0.4 % Normal 0.2-2.0 [facility] Comment on above: Performed By: #### C BC ####[facility] Mlxhfbrlkp[address] [place], [place] [address]Dr. Airam Tripathi EO # 0.1 103/ul Normal 0.0-0.7 [facility] Comment on above: Performed By: #### C BC ####[facility] Agyltnptlm[address] [place], [place] [address]Dr. Airam Tripathi Eosinophils/100 WBC (Bld) 1.3 % Normal 0.9-7.0 [facility] Comment on above: Performed By: #### C BC ####[facility] Wgispgklhs8[address] [place], [place] [address]Dr. Airam Tripathi Erythrocyte distribution width (RBC) [Ratio] 13.4 % Normal 11.0-15.0 [facility] Comment on above: Performed By: #### C BC ####[facility] Acktsvumhb194[address] [place], [place] [address]Dr. Airam Tripathi Hematocrit (Bld) [Volume fraction] 27.3 % Critically low 36.0-48.0 [facility] Comment on above: Performed By: #### C BC ####[facility] [address]xsf[address]ufyql[address] [place] [id number]. Airam Tripathi Hemoglobin (Bld) [Mass/Vol] 8.6 g/dL Critically low 12.0-16.0 [facility] Comment on above: Performed By: #### C BC ####[facility] Jsauequgip[address] [place] [address]Dr. Airam Tripathi IG # 0.08 10e3/ul Critically high 0.00-0.03 [facility] Comment on above: Performed By: #### C BC ####[facility] Sougvzrowr39[address] [place] [address]Dr. Airam Tripathi IG % 0.8 % Critically high 0.0-0.5 [facility] Comment on above: Performed By: #### C BC ####[facility] Fopapqtytg[address] [place], [place] [address]Dr. Airam Tripathi LYMPH # 1.9 103/ul Normal 1.2-3.8 [facility] Comment on above: Performed By: #### C BC ####[facility] Vaftvmqysh[address] [place] [address]Dr. Airam Tripathi Lymphocytes/100 WBC (Bld) 19.3 % Critically low 20.5-60.0 [facility] Comment on above: Performed By: #### C BC ####[facility] Joueheyhhy[address] [place], [place] [address]Dr. Airam Tripathi MANUAL DIFF REQ NO Normal [facility] Comment on above: Performed By: #### C BC ####[facility] [address]xtq[address]pd[address] [place], [place] [id number]. Airam Tripathi MCH (RBC) [Entitic mass] 29.6 pg Normal 26.7-34.0 [facility] Comment on above: Performed By: #### C BC ####[facility] Haupmuzdnv[address] [place], [place] [address]Dr. Airam Tripathi MCHC (RBC) [Mass/Vol] 31.5 g/dL Normal 29.9-35.2 [facility] Comment on above: Performed By: #### C BC ####[facility] Xaeesmllyl5[address] [place] [id number]. Airam Tripathi MCV (RBC) [Entitic vol] 93.8 fL Normal 81.0-99.0 [facility] Comment on above: Performed By: #### C BC ####[facility] Bpqpbbcssl98[address] [place] [id number]. Airam Tripathi MONO # 0.6 103/ul Normal 0.3-0.8 [facility] Comment on above: Performed By: #### C BC ####[facility] Qddrfwbmrc[address] [place], [place] [address]Dr. Airam Tripathi Monocytes/100 WBC (Bld) 6.5 % Normal 1.7-12.0 [facility] Comment on above: Performed By: #### C BC ####[facility] Uzlkbgbikn[address] [place], [place] [address]Dr. Airam Tripathi NEUT # 6.9 103/ul Critically high 1.4-6.5 [facility] Comment on above: Performed By: #### C BC ####[facility] Osnsoppbqf[address] [place], [place] [address]Dr. Airam Tripathi Neutrophils/100 WBC (Bld) 71.7 % Normal 43.0-75.0 [facility] Comment on above: Performed By: #### C BC ####[facility] Uglmpoicxt[address] [place], [place] [address]Dr. Airam Tripathi Platelet mean volume (Bld) [Entitic vol] 8.5 fL Critically low 9.5-13.5 [facility] Comment on above: Performed By: #### C BC ####[facility] [address]ufjjtkvlk[address] [place], [place] [id number]. Airam Tripathi PLT 295 103/ul Normal 150-450 [facility] Comment on above: Performed By: #### C BC ####[facility] [address]qmf[address] [place], [place] [id number]. Airam Tripathi RBC 2.91 106/ul Critically low 4.20-5.40 [facility] Comment on above: Performed By: #### C BC ####[facility] Fyfhozexbx70[address] [place] [id number]. Aiarm Tripathi WBC 9.7 103/ul Normal 4.0-11.0 [facility] Comment on above: Performed By: #### C BC ####[facility] Ghlxuwhrie[address] [place] [address]Dr. Airam Tripathi PROF 14(COMP METB)on 06-18- 022 Albumin [Mass/Vol] 2.8 g/dL Critically low 3.4-5.0 [facility] Comment on above: Performed By: #### B HEADING MACHINE OPERATOR, CMP ####[facility] Zdrqpermrz7143 [place] [address]Dr. Airam Tripathi Albumin/Globulin [Mass ratio] 0.9 {ratio} Normal [facility] Comment on above: Performed By: #### B HEADING MACHINE OPERATOR, CMP ####[facility] Zwlcghneai[address] [place], [place] [address]Dr. Airam Tripathi ALP [Catalytic activity/Vol] 125 U/L Critically high 46-116 [facility] Comment on above: Performed By: #### B HEADING MACHINE OPERATOR, CMP ####[facility] Waefftnrdc[address] [place] [address]Dr. Airam Tripathi ALT [Catalytic activity/Vol] 16 U/L Normal 14-59 [facility] Comment on above: Performed By: #### B HEADING MACHINE OPERATOR, CMP ####[facility] Ohxsrdfmkm94[address] [place] [address]Dr. Airam Tripathi Anion gap [Moles/Vol] 11.4 mmol/L Normal [facility] Comment on above: Performed By: #### B HEADING MACHINE OPERATOR, CMP ####[facility] Qdoctvqbxt2122 [place] [address]Dr. Airam Tripathi AST [Catalytic activity/Vol] 23 U/L Normal 15-37 [facility] Comment on above: Performed By: #### B HEADING MACHINE OPERATOR, CMP ####[facility] Ncytzuxhag[address] [place] [address]Dr. Airam Tripathi Bilirubin [Mass/Vol] 0.2 mg/dL Normal 0.2-1.0 [facility] Comment on above: Performed By: #### B HEADING MACHINE OPERATOR, CMP ####[facility] Bnxxcmuoqq40[address] [place] [address]Dr. Airam Tripathi Calcium [Mass/Vol] 8.1 mg/dL Critically low 8.5-10.1 [facility] Comment on above: Performed By: #### B HEADING MACHINE OPERATOR, CMP ####[facility] Xjzlrgdevy[address] [place], [place] [address]Dr. Airam Tripathi Chloride [Moles/Vol] 96 mmol/L Critically low 98-107 [facility] Comment on above: Performed By: #### B HEADING MACHINE OPERATOR, CMP ####[facility] Hsnkhfxixu[address] [place], [place] [address]Dr. Airam Tripathi CO2 [Moles/Vol] 26.6 mmol/L Normal 21.0-32.0 [facility] Comment on above: Performed By: #### B HEADING MACHINE OPERATOR, CMP ####[facility] Oaingvmbag[address] [place], [place] [address]Dr. Airam Deuce Creatinine [Mass/Vol] 1.31 mg/dL Critically high 0.55-1.02 [facility] Comment on above: Performed By: #### B HEADING MACHINE OPERATOR, CMP ####[facility] S[address]kktgfbl[address] [place], [place] [address]Dr. Airam Tripathi EGFR-AF GUAMANIAN 50 mL/min/1.73m2 Critically low >=60 [facility] Comment on above: Performed By: #### B HEADING MACHINE OPERATOR, CMP ####[facility] Nakclzleyw[address] [place], [place] [address]Dr. Airam Deuce EGFR-NON AF GUAMANIAN 41 mL/min/1.73m2 Critically low >=60 [facility] Comment on above: Performed By: #### B HEADING MACHINE OPERATOR, CMP ####[facility] Lcvqybhqay[address] [place], [place] [address]Dr. Airam Tripathi Globulin (S) [Mass/Vol] 3.0 g/dL Normal [facility] Comment on above: Performed By: #### B HEADING MACHINE OPERATOR, CMP ####[facility] [address]eb[address] [place], [place] [address]Dr. Airam Tripathi Glucose [Mass/Vol] 82 mg/dL Normal 74-106 [facility] Comment on above: Performed By: #### B HEADING MACHINE OPERATOR, CMP ####[facility] Qouxeruikq[address] [place], [place] [address]Dr. Airam Tripathi Potassium [Moles/Vol] 4.0 mmol/L Normal 3.5-5.1 [facility] Comment on above: Performed By: #### B HEADING MACHINE OPERATOR, CMP ####[facility] Nvcswiobob[address] [place], [place] [address]Dr. Airam Tripathi Protein [Mass/Vol] 5.8 g/dL Critically low 6.4-8.2 [facility] Comment on above: Performed By: #### B HEADING MACHINE OPERATOR, CMP ####[facility] Wvprkxukjr[address] [place], [place] [address]Dr. Selenaneil Tripathi Sodium [Moles/Vol] 130 mmol/L Critically low 136-145 [facility] Comment on above: Performed By: #### B HEADING MACHINE OPERATOR, CMP ####[facility] Etkolfakjn[address] [place], [place] [address]Dr. Airam Tripathi Urea nitrogen [Mass/Vol] 19.0 mg/dL Critically high 7.0-18.0 [facility] Comment on above: Performed By: #### B HEADING MACHINE OPERATOR, CMP ####[facility] Gqbmnhgimc[address] [place], [place] [address]Dr. Selenaneil Tripathi Urea nitrogen/Creatinine [Mass ratio] 14.5 mg/mg Normal [facility] Comment on above: Performed By: #### B HEADING MACHINE OPERATOR, CMP ####[facility] Bmbqzfvcre[address] [place], [place] [address]Dr. Airam Deuce BNPon 06-17-2022 Natriuretic peptide B (Bld) [Mass/Vol] 2510.0 pg/mL Critically high <=900.0 [facility] Comment on above: Performed By: #### B HEADING MACHINE OPERATOR, CMP ####[facility] Worvogazlr[address] [place], [place] [address]Dr. Selenaneil Tripathi CBC AUTO DIFFon 06-17-2022 BASO # 0.0 103/ul Normal 0.0-0.1 [facility] Comment on above: Performed By: #### C BC ####[facility] [address] [place] [id number]. Airam Tripathi Basophils/100 WBC (Bld) 0.4 % Normal 0.2-2.0 [facility] Comment on above: Performed By: #### C BC ####[facility] U[address]jpm[address] [place], [place] [id number]. Airam Tripathi EO # 0.0 103/ul Normal 0.0-0.7 [facility] Comment on above: Performed By: #### C BC ####[facility] Sfszlnprcb[address] [place], [place] [address]Dr. Airam Tripathi Eosinophils/100 WBC (Bld) 0.3 % Critically low 0.9-7.0 [facility] Comment on above: Performed By: #### C BC ####[facility] Zxvwyvqnww[address] [place], [place] [address]Dr. Airam Tripathi Erythrocyte distribution width (RBC) [Ratio] 13.6 % Normal 11.0-15.0 [facility] Comment on above: Performed By: #### C BC ####[facility] Gpanrzkpxd[address] [place], [place] [address]Dr. Airam Tripathi Hematocrit (Bld) [Volume fraction] 28.9 % Critically low 36.0-48.0 [facility] Comment on above: Performed By: #### C BC ####[facility] Dnsxqwvknt[address] [place], [place] [address]Dr. Airam Tripathi Hemoglobin (Bld) [Mass/Vol] 8.9 g/dL Critically low 12.0-16.0 [facility] Comment on above: Performed By: #### C BC ####[facility] Jlubykiiws[address] [place], [place] [address]Dr. Airam Tripathi IG # 0.10 10e3/ul Critically high 0.00-0.03 [facility] Comment on above: Performed By: #### C BC ####[facility] Ojlypnvbey[address] [place], [place] [address]Dr. Airam Tripathi IG % 1.3 % Critically high 0.0-0.5 [facility] Comment on above: Performed By: #### C BC ####[facility] Gsodthlryr[address] [place] [id number]. Airam Tripathi LYMPH # 0.7 103/ul Critically low 1.2-3.8 [facility] Comment on above: Performed By: #### C BC ####[facility] Kwmzyniioc040[address] [place] [phone]. Airam Tripathi Lymphocytes/100 WBC (Bld) 8.1 % Critically low 20.5-60.0 [facility] Comment on above: Performed By: #### C BC ####[facility] Bzxkhnvw[address] [place], [place] [address]Dr. Airam Tripathi MANUAL DIFF REQ NO Normal [facility] Comment on above: Performed By: #### C BC ####[facility] Urpq[address] [place] [address]Dr. Airam Tripathi MCH (RBC) [Entitic mass] 29.4 pg Normal 26.7-34.0 [facility] Comment on above: Performed By: #### C BC ####[facility] [address]zr[address] [place] [address]Dr. Selenaneil Tripathi MCHC (RBC) [Mass/Vol] 30.8 g/dL Normal 29.9-35.2 [facility] Comment on above: Performed By: #### C BC ####[facility] Igzfwgkslx7[address] [place] [phone]. Airam Tripathi MCV (RBC) [Entitic vol] 95.4 fL Normal 81.0-99.0 [facility] Comment on above: Performed By: #### C BC ####[facility] Gdbpprjyst6076 [place] [phone]. Airam Tripathi MONO # 0.3 103/ul Normal 0.3-0.8 [facility] Comment on above: Performed By: #### C BC ####[facility] Jq[address]tgugfz08[address] [place] [phone]. Airam Tripathi Monocytes/100 WBC (Bld) 3.1 % Normal 1.7-12.0 [facility] Comment on above: Performed By: #### C BC ####[facility] T[address]cfsvmlh77[address] [place] [phone]. Airam Tripathi NEUT # 7.0 103/ul Critically high 1.4-6.5 [facility] Comment on above: Performed By: #### C BC ####[facility] Fpvqwjhsof2993 [place] [phone] Tripathi Neutrophils/100 WBC (Bld) 86.8 % Critically high 43.0-75.0 [facility] Comment on above: Performed By: #### C BC ####[facility] Heolpbggvo9340 [place] [phone]. Airam Tripathi Platelet mean volume (Bld) [Entitic vol] 8.3 fL Critically low 9.5-13.5 [facility] Comment on above: Performed By: #### C BC ####[facility] [address] [place] [address]Dr. Airam Tripathi PLT 279 103/ul Normal 150-450 [facility] Comment on above: Performed By: #### C BC ####[facility] Grbsgczvjj[address] [place] [phone]. Airam Tripathi RBC 3.03 106/ul Critically low 4.20-5.40 [facility] Comment on above: Performed By: #### C BC ####[facility] Yuzbmhlron[address] [place] [phone]. Airam Tripathi WBC 8.0 103/ul Normal 4.0-11.0 [facility] Comment on above: Performed By: #### C BC ####[facility] Afwmhzpskm45[address] [place] [phone] Tripathi PROF 14(COMP METB)on 022 Albumin [Mass/Vol] 2.8 g/dL Critically low 3.4-5.0 [facility] Comment on above: Performed By: #### B HEADING MACHINE OPERATOR, CMP ####[facility] Elwxgvqpjm4[address] [place] [phone] Tripathi Albumin/Globulin [Mass ratio] 0.9 {ratio} Normal [facility] Comment on above: Performed By: #### B HEADING MACHINE OPERATOR, CMP ####[facility] Nbjdelbzti[address] [place] [address]Dr. Airam Tripathi ALP [Catalytic activity/Vol] 136 U/L Critically high 46-116 [facility] Comment on above: Performed By: #### B HEADING MACHINE OPERATOR, CMP ####[facility] Vcdiazovtt[address] [place] [address]Dr. Airam Deuce ALT [Catalytic activity/Vol] 17 U/L Normal 14-59 [facility] Comment on above: Performed By: #### B HEADING MACHINE OPERATOR, CMP ####[facility] Wzdrcnhynt55[address] [place] [address]Dr. Selenaneil Deuce Anion gap [Moles/Vol] 12.9 mmol/L Normal Th [facility] Comment on above: Performed By: #### B HEADING MACHINE OPERATOR, CMP ####[facility] Hadxqraktz[address] [place], [place] [address]Dr. Airam Deuce AST [Catalytic activity/Vol] 24 U/L Normal 15-37 [facility] Comment on above: Performed By: #### B HEADING MACHINE OPERATOR, CMP ####[facility] Bekhtwucwd[address] [place], [place] [address]Dr. Airam Deuce Bilirubin [Mass/Vol] 0.2 mg/dL Normal 0.2-1.0 [facility] Comment on above: Performed By: #### B HEADING MACHINE OPERATOR, CMP ####[facility] Arqmroupts[address] [place], [place] [address]Dr. Selenaneil Deuce Calcium [Mass/Vol] 8.7 mg/dL Normal 8.5-10.1 [facility] Comment on above: Performed By: #### B HEADING MACHINE OPERATOR, CMP ####[facility] Trnnlhszda57[address] [place] [address]Dr. Airam Tripathi Chloride [Moles/Vol] 102 mmol/L Normal 98-107 [facility] Comment on above: Performed By: #### B HEADING MACHINE OPERATOR, CMP ####[facility] Ajhvpmbitc[address] [place], [place] [address]Dr. Airam Tripathi CO2 [Moles/Vol] 23.8 mmol/L Normal 21.0-32.0 [facility] Comment on above: Performed By: #### B HEADING MACHINE OPERATOR, CMP ####[facility] R[address]ayn[address] [place] [address]Dr. Airam Tripathi Creatinine [Mass/Vol] 1.08 mg/dL Critically high 0.55-1.02 [facility] Comment on above: Performed By: #### B HEADING MACHINE OPERATOR, CMP ####[facility] Kaqvcmmbro[address] [place], [place] [address]Dr. Airam Tripathi EGFR-AF GUAMANIAN >60 Normal >=60 [facility] Comment on above: Performed By: #### B HEADING MACHINE OPERATOR, CMP ####[facility] Btmkqdjgbw[address] [place], [place] [address]Dr. Airam Tripathi EGFR-NON AF GUAMANIAN 52 mL/min/1.73m2 Critically low >=60 [facility] Comment on above: Performed By: #### B HEADING MACHINE OPERATOR, CMP ####[facility] Xbkxibbwbu[address] [place], [place] [address]Dr. Airam Tripathi Globulin (S) [Mass/Vol] 3.2 g/dL Normal [facility] Comment on above: Performed By: #### B HEADING MACHINE OPERATOR, CMP ####[facility] Cvueztyewv[address] [place], [place] [address]Dr. Airam Tripathi Glucose [Mass/Vol] 99 mg/dL Normal 74-106 [facility] Comment on above: Performed By: #### B HEADING MACHINE OPERATOR, CMP ####[facility] Mbuggrtppo[address] [place], [place] [address]Dr. Airam Tripathi Potassium [Moles/Vol] 4.7 mmol/L Normal 3.5-5.1 [facility] Comment on above: Performed By: #### B HEADING MACHINE OPERATOR, CMP ####[facility] Mhywjkrovl[address] [place], [place] [address]Dr. Airam Tripathi Protein [Mass/Vol] 6.0 g/dL Critically low 6.4-8.2 Th e [facility] Comment on above: Performed By: #### B HEADING MACHINE OPERATOR, CMP ####[facility] Xiprwsvvgd[address] [place], [place] [address]Dr. Airam Tripathi Sodium [Moles/Vol] 134 mmol/L Critically low 136-145 Th [facility] Comment on above: Performed By: #### B HEADING MACHINE OPERATOR, CMP ####[facility] Dtzqstrwuw[address] [place], [place] [address]DrKianna Airam Tripathi Urea nitrogen [Mass/Vol] 19.0 mg/dL Critically high 7.0-18.0 [facility] Comment on above: Performed By: #### B HEADING MACHINE OPERATOR, CMP ####[facility] Qjdnhgfxra[address] [place], [place] [address]DrKianna Airam Deuce Urea nitrogen/Creatinine [Mass ratio] 17.6 mg/mg Normal [facility] Comment on above: Performed By: #### B HEADING MACHINE OPERATOR, CMP ####[facility] Zmuluwteto[address] [place], [place] [address]DrKianna Airam Deuce PROTIMEon 06-17-2022 INR Coag (PPP) [Relative time] 1.00 {INR} Normal [facility] Comment on above: Performed By: #### P T ####[facility] H[address]rkdhlxo[address] [place], [place] [address]DrKianna Airam Tripathi INR GUIDELINES SEE BELOW Normal [facility] Comment on above: Result Comment: SIDRA RED INR: 2.0 - 3.0 CONDITIONS NOT LISTED BELOW 2.5 - 3.5 FOR PROSTHETIC HEART VALVE REPLACEMENT 2.5 - 3.5 RECURRENT THROMBOSIS Performed By: #### P T ####[facility] Qf[address]bgrqgp[address] [place], [place] [address]DrKianna Tripathi PT Coag (PPP) [Time] 10.8 s Normal 9.0-11.6 [facility] Comment on above: Performed By: #### P T ####[facility] [address]yjyl[address] [place], [place] [address]DrKianna Selenaneil Tripathi PTTon 06-17-2022 aPTT Coag (Bld) [Time] 27.2 s Normal 22.3-36.2 Th [facility] Comment on above: Performed By: #### P TT ####[facility] [address]oyejzgjm[address] [place], [place] [address]DrKianna Tripathi BNPon 06-16-2022 Natriuretic peptide B (Bld) [Mass/Vol] 2293.0 pg/mL Critically high <=900.0 [facility] Comment on above: Performed By: #### C MP, BNP ####[facility] Dhogbzwojc[address] [place] [address]Dr. Airam Tripathi CBC AUTO DIFFon 06-16-2022 BASO # 0.0 103/ul Normal 0.0-0.1 [facility] Comment on above: Performed By: #### C BC ####[facility] Bhlceefijb[address] [place], [place] [address]Dr. Selenaneil Tripathi Basophils/100 WBC (Bld) 0.4 % Normal 0.2-2.0 [facility] Comment on above: Performed By: #### C BC ####[facility] Zhcrjtjdlx[address] [place], [place] [address]Dr. Selenaneil Tripathi EO # 0.2 103/ul Normal 0.0-0.7 [facility] Comment on above: Performed By: #### C BC ####[facility] Trfypjuqoj[address] [place], [place] [address]Dr. Selenaneil Tripathi Eosinophils/100 WBC (Bld) 3.0 % Normal 0.9-7.0 [facility] Comment on above: Performed By: #### C BC ####[facility] Ujhpavqzjb[address] [place], [place] [address]Dr. Airam Tripathi Erythrocyte distribution width (RBC) [Ratio] 13.3 % Normal 11.0-15.0 [facility] Comment on above: Performed By: #### C BC ####[facility] Gdbmirbmil9[address] [place], [place] [address]Dr. Selenaneil Tripathi Hematocrit (Bld) [Volume fraction] 26.2 % Critically low 36.0-48.0 [facility] Comment on above: Performed By: #### C BC ####[facility] Qsssfnbnxn7[address] [place], [place] [address]Dr. Airam Tripathi Hemoglobin (Bld) [Mass/Vol] 8.3 g/dL Critically low 12.0-16.0 [facility] Comment on above: Performed By: #### C BC ####[facility] Bj[address]yhjua[address] [place] [id number]. Airam Tripathi IG # 0.08 10e3/ul Critically high 0.00-0.03 [facility] Comment on above: Performed By: #### C BC ####[facility] Fbwxsbhwen5[address] [place] [phone]. Airam Tripathi IG % 1.1 % Critically high 0.0-0.5 [facility] Comment on above: Performed By: #### C BC ####[facility] Mmxmmgwgql[address] [place], [place] [address]Dr. Airam Tripathi LYMPH # 1.2 103/ul Normal 1.2-3.8 [facility] Comment on above: Performed By: #### C BC ####[facility] Qndwmslrrp[address] [place], [place] [address]Dr. Selenaneil Tripathi Lymphocytes/100 WBC (Bld) 17.3 % Critically low 20.5-60.0 [facility] Comment on above: Performed By: #### C BC ####[facility] Imkehxiuor[address] [place], [place] [address]Dr. Airam Tripathi MANUAL DIFF REQ NO Normal [facility] Comment on above: Performed By: #### C BC ####[facility] [address]kmvqyesp[address] [place], [place] [address]Dr. Airam Tripathi MCH (RBC) [Entitic mass] 30.3 pg Normal 26.7-34.0 [facility] Comment on above: Performed By: #### C BC ####[facility] Uafwcynlhp[address] [place], [place] [address]Dr. Airam Tripathi MCHC (RBC) [Mass/Vol] 31.7 g/dL Normal 29.9-35.2 [facility] Comment on above: Performed By: #### C BC ####[facility] [address]ucib[address] [place] [address]Dr. Airam Tripathi MCV (RBC) [Entitic vol] 95.6 fL Normal 81.0-99.0 [facility] Comment on above: Performed By: #### C BC ####[facility] Qdolsrxwkg0396 [place] [phone]. Airam Tripathi MONO # 0.5 103/ul Normal 0.3-0.8 [facility] Comment on above: Performed By: #### C BC ####[facility] Ydcohmdism13[address] [place] [phone]. Airma Tripathi Monocytes/100 WBC (Bld) 7.1 % Normal 1.7-12.0 [facility] Comment on above: Performed By: #### C BC ####[facility] Rlozvcifvy06[address] [place] [id number]. Airam Tripathi NEUT # 5.0 103/ul Normal 1.4-6.5 [facility] Comment on above: Performed By: #### C BC ####[facility] Cjriguurhi9[address] [place] [id number]. Airam Tripathi Neutrophils/100 WBC (Bld) 71.1 % Normal 43.0-75.0 [facility] Comment on above: Performed By: #### C BC ####[facility] Jlrmccmtgh1620 [place] [phone]. Airam Tripathi Platelet mean volume (Bld) [Entitic vol] 8.2 fL Critically low 9.5-13.5 [facility] Comment on above: Performed By: #### C BC ####[facility] Unsrrmszbo75[address] [place] [phone]. Airam Tripathi PLT 247 103/ul Normal 150-450 [facility] Comment on above: Performed By: #### C BC ####[facility] [address]ybxokx[address] [place], [place] [id number]. Airam Tripathi RBC 2.74 106/ul Critically low 4.20-5.40 [facility] Comment on above: Performed By: #### C BC ####[facility] Ohtsrwoygh[address] [place] [phone]. Airam Tripathi WBC 7.1 103/ul Normal 4.0-11.0 [facility] Comment on above: Performed By: #### C BC ####[facility] Ezmikzghsj5[address] [place] [address]Dr. Airam Tripathi CTA CHEST WO W CONon 022 CTA CHEST WO W CON Normal [facility] PROF 14(COMP METB)on 022 Albumin [Mass/Vol] 2.6 g/dL Critically low 3.4-5.0 [facility] Comment on above: Performed By: #### C MP, BNP ####[facility] Qbkikvahtu[address] [place] [address]Dr. Airam Tirpathi Albumin/Globulin [Mass ratio] 0.8 {ratio} Normal [facility] Comment on above: Performed By: #### C MP, BNP ####[facility] Kozrpedgex4[address] [place] [address]Dr. Airam Tripathi ALP [Catalytic activity/Vol] 130 U/L Critically high 46-116 [facility] Comment on above: Performed By: #### C MP, BNP ####[facility] Yuexvyahbe[address] [place], [place] [address]Dr. Airam Tripathi ALT [Catalytic activity/Vol] 12 U/L Critically low 14-59 [facility] Comment on above: Performed By: #### C MP, BNP ####[facility] [address]vnnuqstx[address] [place], [place] [address]Dr. Airam Tripathi Anion gap [Moles/Vol] 11.8 mmol/L Normal [facility] Comment on above: Performed By: #### C MP, BNP ####[facility] Peeluprrtk[address] [place], [place] [address]Dr. Airam Tripathi AST [Catalytic activity/Vol] 22 U/L Normal 15-37 [facility] Comment on above: Performed By: #### C MP, BNP ####[facility] Fbtqoxdbse[address] [place], [place] [address]Dr. Airam Tripathi Bilirubin [Mass/Vol] 0.2 mg/dL Normal 0.2-1.0 [facility] Comment on above: Performed By: #### C MP, BNP ####[facility] Cvnmiwydku[address] [place], [place] [address]Dr. Airam Tripathi Calcium [Mass/Vol] 8.0 mg/dL Critically low 8.5-10.1 Th e [facility] Comment on above: Performed By: #### C MP, BNP ####[facility] Llizatredu[address] [place], [place] [address]Dr. Airam Tripathi Chloride [Moles/Vol] 104 mmol/L Normal 98-107 [facility] Comment on above: Performed By: #### C MP, BNP ####[facility] Lejtpuzgqn[address] [place], [place] [address]Dr. Airam Tripathi CO2 [Moles/Vol] 22.8 mmol/L Normal 21.0-32.0 [facility] Comment on above: Performed By: #### C MP, BNP ####[facility] Eefurtpnpj[address] [place], [place] [address]Dr. Airam Tripathi Creatinine [Mass/Vol] 1.07 mg/dL Critically high 0.55-1.02 [facility] Comment on above: Performed By: #### C MP, BNP ####[facility] Xinhwyposn[address] [place], [place] [address]Dr. Airam Tripathi EGFR-AF GUAMANIAN >60 Normal >=60 [facility] Comment on above: Performed By: #### C MP, BNP ####[facility] [address]aurwvskrt[address] [place], [place] [address]Dr. Airam Tripathi EGFR-NON AF GUAMANIAN 52 mL/min/1.73m2 Critically low >=60 [facility] Comment on above: Performed By: #### C MP, BNP ####[facility] Ngmlsmaexg[address] [place], [place] [address]Dr. Airam Tripathi Globulin (S) [Mass/Vol] 3.1 g/dL Normal [facility] Comment on above: Performed By: #### C MP, BNP ####[facility] Meknzohcyc[address] [place], [place] [address]Dr. Airam Tripathi Glucose [Mass/Vol] 85 mg/dL Normal 74-106 [facility] Comment on above: Performed By: #### C MP, BNP ####[facility] Enyccfcnna[address] [place], [place] [address]Dr. Airam Tripathi Potassium [Moles/Vol] 4.6 mmol/L Normal 3.5-5.1 [facility] Comment on above: Performed By: #### C MP, BNP ####[facility] Fraygteeba[address] [place], [place] [address]Dr. Airam Tripathi Protein [Mass/Vol] 5.7 g/dL Critically low 6.4-8.2 Th [facility] Comment on above: Performed By: #### C MP, BNP ####[facility] Aioczobcoc[address] [place], [place] [address]Dr. Airam Tripathi Sodium [Moles/Vol] 134 mmol/L Critically low 136-145 Th [facility] Comment on above: Performed By: #### C MP, BNP ####[facility] Ixyaszhsly[address] [place], [place] [address]Dr. Airam Tripathi Urea nitrogen [Mass/Vol] 24.0 mg/dL Critically high 7.0-18.0 [facility] Comment on above: Performed By: #### C MP, BNP ####[facility] Wewjxxujje[address] [place], [place] [address]Dr. Airam Tripathi Urea nitrogen/Creatinine [Mass ratio] 22.4 mg/mg Normal [facility] Comment on above: Performed By: #### C MP, BNP ####[facility] Wudoucdaxa[address] [place], [place] [address]Dr. Airam Tripathi BNPon 06-15-2022 Natriuretic peptide B (Bld) [Mass/Vol] 934.0 pg/mL Critically high <=900.0 [facility] Comment on above: Performed By: #### C MP, BNP ####[facility] Upypevnkrr[address] [place], [place] [address]Dr. Airam Tripathi CBC AUTO DIFFon 06-15-2022 BASO # 0.0 103/ul Normal 0.0-0.1 [facility] Comment on above: Performed By: #### C BC ####[facility] [address]qpbhdk[address] [place], [place] [address]Dr. Airam Tripathi Basophils/100 WBC (Bld) 0.2 % Normal 0.2-2.0 [facility] Comment on above: Performed By: #### C BC ####[facility] [address] [place] [address]Dr. Airam Tripathi EO # 0.1 103/ul Normal 0.0-0.7 [facility] Comment on above: Performed By: #### C BC ####[facility] Yuhkndzirr[address] [place], [place] [address]Dr. Airam Tripathi Eosinophils/100 WBC (Bld) 2.1 % Normal 0.9-7.0 [facility] Comment on above: Performed By: #### C BC ####[facility] Jwcqzppshq[address] [place], [place] [address]Dr. Selenaneil Tripathi Erythrocyte distribution width (RBC) [Ratio] 12.9 % Normal 11.0-15.0 [facility] Comment on above: Performed By: #### C BC ####[facility] Kpxxzdqgaf9[address] [place], [place] [address]Dr. Selenaneil Tripathi Hematocrit (Bld) [Volume fraction] 24.9 % Critically low 36.0-48.0 [facility] Comment on above: Performed By: #### C BC ####[facility] Uabdluklal[address] [place], [place] [address]Dr. Airam Tripathi Hemoglobin (Bld) [Mass/Vol] 7.9 g/dL Critically low 12.0-16.0 [facility] Comment on above: Performed By: #### C BC ####[facility] Auuboeheja[address] [place], [place] [address]Dr. Airam Tripathi IG # 0.05 10e3/ul Critically high 0.00-0.03 [facility] Comment on above: Performed By: #### C BC ####[facility] Okbfwtasxn474[address] [place], [place] [address]Dr. Selenaneil Tripathi IG % 0.8 % Critically high 0.0-0.5 [facility] Comment on above: Performed By: #### C BC ####[facility] Kghsoxmkbh[address] [place], [place] [address]DrKianna Tripathi LYMPH # 0.9 103/ul Critically low 1.2-3.8 [facility] Comment on above: Performed By: #### C BC ####[facility] [address] [place] [address]Dr. Selenaneil Tripathi Lymphocytes/100 WBC (Bld) 13.7 % Critically low 20.5-60.0 [facility] Comment on above: Performed By: #### C BC ####[facility] [address] [place] [address]DrKianna Tripathi MANUAL DIFF REQ NO Normal [facility] Comment on above: Performed By: #### C BC ####[facility] [address]grwj[address] [place] [id number]. Airam Tripathi MCH (RBC) [Entitic mass] 30.2 pg Normal 26.7-34.0 [facility] Comment on above: Performed By: #### C BC ####[facility] Qzyrwgtafm665[address] [place], [place] [address]Dr. Airam Tripathi MCHC (RBC) [Mass/Vol] 31.7 g/dL Normal 29.9-35.2 [facility] Comment on above: Performed By: #### C BC ####[facility] Yffgfpexuj[address] [place], [place] [address]DrKianna Tripathi MCV (RBC) [Entitic vol] 95.0 fL Normal 81.0-99.0 [facility] Comment on above: Performed By: #### C BC ####[facility] Qpiayieoyr[address] [place], [place] [address]DrKianna Tripathi MONO # 0.4 103/ul Normal 0.3-0.8 [facility] Comment on above: Performed By: #### C BC ####[facility] Piiw[address]qyyf[address] [place], [place] [id number] Tripathi Monocytes/100 WBC (Bld) 6.7 % Normal 1.7-12.0 [facility] Comment on above: Performed By: #### C BC ####[facility] Xpfuhjfdqe[address] [place], [place] [address]DrKianna Tripathi NEUT # 5.0 103/ul Normal 1.4-6.5 [facility] Comment on above: Performed By: #### C BC ####[facility] [address] [place] [address]DrKianna Tripathi Neutrophils/100 WBC (Bld) 76.5 % Critically high 43.0-75.0 [facility] Comment on above: Performed By: #### C BC ####[facility] [address]ngl[address] [place] [address]DrKianna Tripathi Platelet mean volume (Bld) [Entitic vol] 8.4 fL Critically low 9.5-13.5 [facility] Comment on above: Performed By: #### C BC ####[facility] [address]witvul[address] [place] [address]DrKianna Tripathi PLT 202 103/ul Normal 150-450 [facility] Comment on above: Performed By: #### C BC ####[facility] Txnapyqjtm[address] [place], [place] [address]DrKianna Tripathi RBC 2.62 106/ul Critically low 4.20-5.40 [facility] Comment on above: Performed By: #### C BC ####[facility] Oivsxxkiay016[address] [place], [place] [address]DrKianna Tripathi WBC 6.6 103/ul Normal 4.0-11.0 [facility] Comment on above: Performed By: #### C BC ####[facility] Yhuxfqtupc[address] [place], [place] [address]DrKianna Tripathi OSMOLALITYon 06-15-2022 Osmolality [Osmolality] 269 mosm/kg Critically low 275-295 [facility] Comment on above: Performed By: #### O SMO ####[facility] Yubhnrruhb224[address] [place], [place] [address]DrKianna Tripathi PROF 14(COMP METB)on 022 Albumin [Mass/Vol] 2.5 g/dL Critically low 3.4-5.0 [facility] Comment on above: Performed By: #### C MP, BNP ####[facility] Uhqrkykyfm427[address] [place], [place] [address]DrKianna Tripathi Albumin/Globulin [Mass ratio] 0.9 {ratio} Normal [facility] Comment on above: Performed By: #### C MP, BNP ####[facility] [address]uctf[address] [place] [address]Dr. Airam Tripathi ALP [Catalytic activity/Vol] 128 U/L Critically high 46-116 [facility] Comment on above: Performed By: #### C MP, BNP ####[facility] Skefoulkwg[address] [place] [address]Dr. Airam Tripathi ALT [Catalytic activity/Vol] 14 U/L Normal 14-59 [facility] Comment on above: Performed By: #### C MP, BNP ####[facility] Cdfmvbloul[address] [place], [place] [address]Dr. Airam Tripathi Anion gap [Moles/Vol] 10.4 mmol/L Normal [facility] Comment on above: Performed By: #### C MP, BNP ####[facility] Mpzoewbhpu396[address] [place], [place] [address]Dr. Airam Tripathi AST [Catalytic activity/Vol] 23 U/L Normal 15-37 [facility] Comment on above: Performed By: #### C MP, BNP ####[facility] Hdowofyaoq14[address] [place], [place] [address]Dr. Airam Tripathi Bilirubin [Mass/Vol] 0.2 mg/dL Normal 0.2-1.0 [facility] Comment on above: Performed By: #### C MP, BNP ####[facility] Jymzvfuxlz074[address] [place], [place] [address]Dr. Airam Tripathi Calcium [Mass/Vol] 7.4 mg/dL Critically low 8.5-10.1 [facility] Comment on above: Performed By: #### C MP, BNP ####[facility] Cqnbaplypq337[address] [place], [place] [address]Dr. Airam Tripathi Chloride [Moles/Vol] 99 mmol/L Normal 98-107 [facility] Comment on above: Performed By: #### C MP, BNP ####[facility] Aypamofscd9[address] [place], [place] [address]Dr. Airam Tripathi CO2 [Moles/Vol] 24.1 mmol/L Normal 21.0-32.0 [facility] Comment on above: Performed By: #### C MP, BNP ####[facility] Philtikqib9[address] [place], [place] [address]Dr. Airam Tripathi Creatinine [Mass/Vol] 1.45 mg/dL Critically high 0.55-1.02 [facility] Comment on above: Performed By: #### C MP, BNP ####[facility] Jucgygjoun434[address] [place], [place] [address]Dr. Airam Tripathi EGFR-AF GUAMANIAN 45 mL/min/1.73m2 Critically low >=60 [facility] Comment on above: Performed By: #### C MP, BNP ####[facility] Xpjezffazx[address] [place], [place] [address]Dr. Airam Tripathi EGFR-NON AF GUAMANIAN 37 mL/min/1.73m2 Critically low >=60 [facility] Comment on above: Performed By: #### C MP, BNP ####[facility] Ncgugrnada055[address] [place], [place] [address]Dr. Airam Tripathi Globulin (S) [Mass/Vol] 2.8 g/dL Normal [facility] Comment on above: Performed By: #### C MP, BNP ####[facility] Aelmgltukc280[address] [place], [place] [address]Dr. Airam Tripathi Glucose [Mass/Vol] 82 mg/dL Normal 74-106 [facility] Comment on above: Performed By: #### C MP, BNP ####[facility] Psdjcantwb956[address] [place], [place] [address]Dr. Airam Tripathi Potassium [Moles/Vol] 4.5 mmol/L Normal 3.5-5.1 [facility] Comment on above: Performed By: #### C MP, BNP ####[facility] Wearvgshhf774[address] [place], [place] [address]Dr. Airam Tripathi Protein [Mass/Vol] 5.3 g/dL Critically low 6.4-8.2 [facility] Comment on above: Performed By: #### C MP, BNP ####[facility] [address]qjqkbm[address] [place] [phone]. Airam Tripathi Sodium [Moles/Vol] 129 mmol/L Critically low 136-145 [facility] Comment on above: Performed By: #### C MP, BNP ####[facility] Ugzdzatzmr39[address] [place], [place] [address]Dr. Airam Tripathi Urea nitrogen [Mass/Vol] 35.0 mg/dL Critically high 7.0-18.0 [facility] Comment on above: Performed By: #### C MP, BNP ####[facility] Qmbzkgspps019[address] [place], [place] [address]Dr. Airam Tripathi Urea nitrogen/Creatinine [Mass ratio] 24.1 mg/mg Normal [facility] Comment on above: Performed By: #### C MP, BNP ####[facility] Fselqzbniw[address] [place], [place] [address]Dr. Airam Tripathi T3, TOTAL (TRIIODOTHYRONINE) on 06-15-2022 T3, TOTAL 113 ng/dL Normal 71-180 [facility] Comment on above: Performed By: #### T 3TOTAL ####[facility] Icabpzamup[address] [place], [place] [address]Dr. Airam Tripathi BNPon 06-14-2022 Natriuretic peptide B (Bld) [Mass/Vol] 1024.0 pg/mL Critically high <=900.0 [facility] Comment on above: Performed By: #### B HEADING MACHINE OPERATOR, CMP ####[facility] Qtleweeexh9[address] [place], [place] [address]Dr. Airam Tripathi CARDIAC CONSUELO 3-6on 2 CK [Catalytic activity/Vol] 116 U/L Normal 26-192 [facility] Comment on above: Performed By: #### C MREP ####[facility] Cklaamiexu[address] [place], [place] [address]Dr. Airam Tripathi CK.MB [Mass/Vol] ng/mL Normal <=3.60 [facility] Comment on above: Performed By: #### C MREP ####[facility] Suiobvqbjz23[address] [place], [place] [address]Dr. Airam Tripathi HSTROP 6.0 pg/mL Normal 4.0-51.3 [facility] Comment on above: Result Comment: CUT- OFF POINTS HAVE BEEN ESTABLISHED BASED ON THE FOURTH UNIVERSAL DEFINITIONS OF MYOCARDIALINFARCTION. THE UPPER REFERENCE LIMIT (URL) OF TROPONIN, DEFINED THE 99TH PERCENTILE OFcTnI DISTRIBUTION IN A REFERENCE POPULATION, HAS BEEN CONFIRMED THE DECISION THRESHOLDFOR AK DIAGNOSIS. Performed By: #### C MREP ####[facility] [address] [place] [address]DrKianna Airam Deuce CBC AUTO DIFFon 06-14-2022 BASO # 0.0 103/ul Normal 0.0-0.1 [facility] Comment on above: Performed By: #### C BC ####[facility] Irpwwrnprs168[address] [place], [place] [address]DrKianna Tripathi Basophils/100 WBC (Bld) 0.3 % Normal 0.2-2.0 [facility] Comment on above: Performed By: #### C BC ####[facility] Jrytjltckd[address] [place], [place] [address]DrKianna Tripathi EO # 0.2 103/ul Normal 0.0-0.7 [facility] Comment on above: Performed By: #### C BC ####[facility] Nymevkisww[address] [place], [place] [address]DrKianna Selenaneil Tripathi Eosinophils/100 WBC (Bld) 2.0 % Normal 0.9-7.0 [facility] Comment on above: Performed By: #### C BC ####[facility] Fcdfejgyul[address] [place], [place] [address]DrKianna Tripathi Erythrocyte distribution width (RBC) [Ratio] 12.8 % Normal 11.0-15.0 [facility] Comment on above: Performed By: #### C BC ####[facility] Wayfdrrwwg[address] [place], [place] [address]DrKianna Tripathi Hematocrit (Bld) [Volume fraction] 27.4 % Critically low 36.0-48.0 [facility] Comment on above: Performed By: #### C BC ####[facility] [address]uyiupvagl[address] [place], [place] [address]Dr. Airam Tripathi Hemoglobin (Bld) [Mass/Vol] 8.7 g/dL Critically low 12.0-16.0 [facility] Comment on above: Performed By: #### C BC ####[facility] [address]hos[address] [place] [address]DrKianna Tripathi IG # 0.11 10e3/ul Critically high 0.00-0.03 [facility] Comment on above: Performed By: #### C BC ####[facility] [address]vdub[address] [place] [address]DrKianna Tripathi IG % 1.1 % Critically high 0.0-0.5 [facility] Comment on above: Performed By: #### C BC ####[facility] X[address]xgfevwkn[address] [place], [place] [address]DrKianna Tripathi LYMPH # 0.9 103/ul Critically low 1.2-3.8 [facility] Comment on above: Performed By: #### C BC ####[facility] Kqwbjqmmqg[address] [place], [place] [address]DrKianna Tripathi Lymphocytes/100 WBC (Bld) 9.7 % Critically low 20.5-60.0 [facility] Comment on above: Performed By: #### C BC ####[facility] Rtnvadilxp[address] [place], [place] [address]DrKianna Selenaneil Tripathi MANUAL DIFF REQ NO Normal [facility] Comment on above: Performed By: #### C BC ####[facility] Vbffzucprj[address] [place], [place] [address]DrKianna Tripathi MCH (RBC) [Entitic mass] 30.0 pg Normal 26.7-34.0 [facility] Comment on above: Performed By: #### C BC ####[facility] Tutqubimkp27[address] [place], [place] [address]DrKianna Tripathi MCHC (RBC) [Mass/Vol] 31.8 g/dL Normal 29.9-35.2 [facility] Comment on above: Performed By: #### C BC ####[facility] Nowtfrryyd324[address] [place], [place] [address]DrKianna Alegria Tripathi MCV (RBC) [Entitic vol] 94.5 fL Normal 81.0-99.0 [facility] Comment on above: Performed By: #### C BC ####[facility] [address]ceji[address] [place] [address]Dr. Airam Tripathi MONO # 0.6 103/ul Normal 0.3-0.8 [facility] Comment on above: Performed By: #### C BC ####[facility] Nq[address]tnefj[address] [place] [address]Dr. Airam Deuce Monocytes/100 WBC (Bld) 5.7 % Normal 1.7-12.0 [facility] Comment on above: Performed By: #### C BC ####[facility] Rjwvleebjx9[address] [place], [place] [address]Dr. Airam Tripathi NEUT # 7.8 103/ul Critically high 1.4-6.5 [facility] Comment on above: Performed By: #### C BC ####[facility] Kgwgdqfwhi349[address] [place], [place] [address]Dr. Airam Deuce Neutrophils/100 WBC (Bld) 81.2 % Critically high 43.0-75.0 [facility] Comment on above: Performed By: #### C BC ####[facility] Gzxtnfbaah067[address] [place], [place] [address]Dr. Airam Deuce Platelet mean volume (Bld) [Entitic vol] 8.6 fL Critically low 9.5-13.5 [facility] Comment on above: Performed By: #### C BC ####[facility] Cgfuyecdjr[address] [place], [place] [address]Dr. Airam Deuce PLT 283 103/ul Normal 150-450 [facility] Comment on above: Performed By: #### C BC ####[facility] Ttojvrpuhl246[address] [place], [place] [address]DrKianna Waltersneil Deuce RBC 2.90 106/ul Critically low 4.20-5.40 [facility] Comment on above: Performed By: #### C BC ####[facility] Aaorzxbhie[address] [place], [place] [address]DrKianna Waltersneil Deuce WBC 9.6 103/ul Normal 4.0-11.0 [facility] Comment on above: Performed By: #### C BC ####[facility] Pezsplddxo89[address] [place], [place] [address]Dr. Airam Deuce OSMOLALITYon 06-14-2022 Osmolality [Osmolality] 273 mosm/kg Critically low 275-295 [facility] Comment on above: Performed By: #### O SMO ####[facility] Rfmyqvnlml[address] [place], [place] [address]Dr. Airam Tripathi PROF 14(COMP METB)on 022 Albumin [Mass/Vol] 3.2 g/dL Critically low 3.4-5.0 [facility] Comment on above: Performed By: #### B HEADING MACHINE OPERATOR, CMP ####[facility] Mouuebwxak[address] [place], [place] [address]Dr. Airam Tripathi Albumin/Globulin [Mass ratio] 1.0 {ratio} Normal [facility] Comment on above: Performed By: #### B HEADING MACHINE OPERATOR, CMP ####[facility] Gjqoauiiqs[address] [place], [place] [address]Dr. Airam Tripathi ALP [Catalytic activity/Vol] 154 U/L Critically high 46-116 [facility] Comment on above: Performed By: #### B HEADING MACHINE OPERATOR, CMP ####[facility] Czmltlfkmk[address] [place], [place] [address]Dr. Airam Tripathi ALT [Catalytic activity/Vol] 17 U/L Normal 14-59 [facility] Comment on above: Performed By: #### B HEADING MACHINE OPERATOR, CMP ####[facility] Njdrbqulcz[address] [place], [place] [address]Dr. Airam Tripathi Anion gap [Moles/Vol] 12.0 mmol/L Normal [facility] Comment on above: Performed By: #### B HEADING MACHINE OPERATOR, CMP ####[facility] Yxoriyloaa55[address] [place], [place] [address]Dr. Airam Tripathi AST [Catalytic activity/Vol] 25 U/L Normal 15-37 [facility] Comment on above: Performed By: #### B HEADING MACHINE OPERATOR, CMP ####[facility] Nfcninstak[address] [place], [place] [address]Dr. Airam Tripathi Bilirubin [Mass/Vol] 0.3 mg/dL Normal 0.2-1.0 [facility] Comment on above: Performed By: #### B HEADING MACHINE OPERATOR, CMP ####[facility] Swvpojurdi330[address] [place], [place] [address]Dr. Airam Tripathi Calcium [Mass/Vol] 7.6 mg/dL Critically low 8.5-10.1 [facility] Comment on above: Performed By: #### B HEADING MACHINE OPERATOR, CMP ####[facility] F[address]wipfscck8[address] [place], [place] [address]Dr. Airam Tripathi Chloride [Moles/Vol] 92 mmol/L Critically low 98-107 [facility] Comment on above: Performed By: #### B HEADING MACHINE OPERATOR, CMP ####[facility] Gxhflpfvlg335[address] [place], [place] [address]Dr. Airam Tripathi CO2 [Moles/Vol] 25.2 mmol/L Normal 21.0-32.0 [facility] Comment on above: Performed By: #### B HEADING MACHINE OPERATOR, CMP ####[facility] Osoeaxbeig[address] [place], [place] [address]Dr. Airam Tripathi Creatinine [Mass/Vol] 1.83 mg/dL Critically high 0.55-1.02 [facility] Comment on above: Performed By: #### B HEADING MACHINE OPERATOR, CMP ####[facility] Hqncljkigm[address] [place], [place] [address]Dr. Airam Tripathi EGFR-AF GUAMANIAN 34 mL/min/1.73m2 Critically low >=60 [facility] Comment on above: Performed By: #### B HEADING MACHINE OPERATOR, CMP ####[facility] Wy[address]qzlhjet[address] [place], [place] [address]Dr. Airam Tripathi EGFR-NON AF GUAMANIAN 28 mL/min/1.73m2 Critically low >=60 [facility] Comment on above: Performed By: #### B HEADING MACHINE OPERATOR, CMP ####[facility] W[address]qfjfpphb[address] [place], [place] [address]Dr. Airam Tripathi Globulin (S) [Mass/Vol] 3.1 g/dL Normal [facility] Comment on above: Performed By: #### B HEADING MACHINE OPERATOR, CMP ####[facility] [address]moj[address] [place] [address]Dr. Selenaneil Deuce Glucose [Mass/Vol] 77 mg/dL Normal 74-106 [facility] Comment on above: Performed By: #### B HEADING MACHINE OPERATOR, CMP ####[facility] J[address]zlvodc[address] [place] [address]Dr. Airam Tripathi Potassium [Moles/Vol] 4.2 mmol/L Normal 3.5-5.1 [facility] Comment on above: Performed By: #### B HEADING MACHINE OPERATOR, CMP ####[facility] [address]vthsztst[address] [place] [address]Dr. Airam Tripathi Protein [Mass/Vol] 6.3 g/dL Critically low 6.4-8.2 [facility] Comment on above: Performed By: #### B HEADING MACHINE OPERATOR, CMP ####[facility] Dydfxstgat[address] [place], [place] [address]Dr. Airam Tripathi Sodium [Moles/Vol] 125 mmol/L Critically low 136-145 [facility] Comment on above: Performed By: #### B HEADING MACHINE OPERATOR, CMP ####[facility] Rxovodqxgo278[address] [place], [place] [address]Dr. Airam Tripathi Urea nitrogen [Mass/Vol] 35.0 mg/dL Critically high 7.0-18.0 [facility] Comment on above: Performed By: #### B HEADING MACHINE OPERATOR, CMP ####[facility] Eqnvcfzwiu[address] [place], [place] [address]Dr. Airam Tripathi Urea nitrogen/Creatinine [Mass ratio] 19.1 mg/mg Normal [facility] Comment on above: Performed By: #### B HEADING MACHINE OPERATOR, CMP ####[facility] [address]vvsvhoeje[address] [place], [place] [address]Dr. Airam Tripathi UA RANDOM W/MICROSCOPICon BACTERIA TRACE Abnormal NONE SEEN [facility] Comment on above: Performed By: #### U AMIC ####[facility] S[address]qtsvzl[address] [place], [place] [address]Dr. Airam Tripathi Bilirubin Ql (U) Negative Normal NEGATIVE [facility] Comment on above: Performed By: #### U AMIC ####[facility] [address] [place] [address]Dr. Airam Tripathi CAST NONE SEEN Normal NONE SEEN [facility] Comment on above: Performed By: #### U AMIC ####[facility] N[address]fx[address]xdn[address] [place] [address]Dr. Airam Tripathi Clarity (U) CLEAR Normal CLEAR [facility] Comment on above: Performed By: #### U AMIC ####[facility] [address]ou[address]ztdqh[address] [place] [address]Dr. Airam Tripathi Color (U) LT. YELLOW Normal YELLOW [facility] Comment on above: Performed By: #### U AMIC ####[facility] [address]ax[address]bi[address] [place] [address]Dr. Airam Tripathi Crystals LM Nom (Urine sed) NONE SEEN Normal NONE SEEN [facility] Comment on above: Performed By: #### U AMIC ####[facility] [address]ixkkfj[address] [place], [place] [address]Dr. Airam Tripathi Epithelial cells LM Ql (Urine sed) FEW Abnormal NONE SEEN /RARE [facility] Comment on above: Performed By: #### U AMIC ####[facility] [address]vnewuzcty[address] [place], [place] [address]Dr. Airam Tripathi Glucose Ql (U) Negative Normal NEGATIVE [facility] Comment on above: Performed By: #### U AMIC ####[facility] [address] [place] [address]Dr. Airam Tripathi Hemoglobin Ql (U) Negative Normal NEGATIVE [facility] Comment on above: Performed By: #### U AMIC ####[facility] [address]zzmi[address] [place] [address]Dr. Airam Tripathi Ketones Ql (U) Negative Normal NEGATIVE [facility] Comment on above: Performed By: #### U AMIC ####[facility] [address]prxkl[address] [place] [address]Dr. Airam Tripathi LEUKOCYTES MODERATE Abnormal NEGATIVE [facility] Comment on above: Performed By: #### U AMIC ####[facility] Onqkm[address]qkg[address] [place] [address]Dr. Selenaneil Tripathi MUCOUS NONE SEEN Normal NONE SEEN [facility] Comment on above: Performed By: #### U AMIC ####[facility] Hmtggxmgad[address] [place] [address]Dr. Airam Tripathi Nitrite Ql (U) Negative Normal NEGATIVE [facility] Comment on above: Performed By: #### U AMIC ####[facility] Bkhfjyzyit[address] [place] [address]Dr. Airam Tripathi pH (U) 5.5 [pH] Normal 5-9 [facility] Comment on above: Performed By: #### U AMIC ####[facility] Ytyuptcejf[address] [place], [place] [address]Dr. Airam Tripathi RBC 0-2 Normal 0-2 [facility] Comment on above: Performed By: #### U AMIC ####[facility] Hflptypstd[address] [place], [place] [address]Dr. Airam Tripathi SPEC GRAVITY 1.020 Normal 1.005-<=1. 025 [facility] Comment on above: Performed By: #### U AMIC ####[facility] Iajnetsiku[address] [place], [place] [address]Dr. Airam Tripathi UA PROTEIN Negative Normal NEGATIVE/ TRACE [facility] Comment on above: Performed By: #### U AMIC ####[facility] Omsoewdsbj[address] [place] [address]Dr. Airam Tripathi Urobilinogen Qn (U) 0.2 {Ligia'U}/dL Normal 0.2 - 1. 0 [facility] Comment on above: Performed By: #### U AMIC ####[facility] Ymamzdedll[address] [place], [place] [address]Dr. Airam Tripathi WBC 5-10 Abnormal NONE SEEN [facility] Comment on above: Performed By: #### U AMIC ####[facility] Ijsiwqlukj[address] [place], [place] [address]Dr. Airam Tripathi BNPon 06-13-2022 Natriuretic peptide B (Bld) [Mass/Vol] 1496.0 pg/mL Critically high <=900.0 [facility] Comment on above: Performed By: #### T 4, BNP, MG, TSH, CMADM, CRP, CMP ####[facility] [address]ruf[address] [place] [address]Dr. Airam Tripathi CARDIAC CONSUELO 3-6on 2 CK [Catalytic activity/Vol] 125 U/L Normal 26-192 [facility] Comment on above: Performed By: #### C MREP ####[facility] Xaifmofxza[address] [place] [address]Dr. Airam Tripathi CK.MB [Mass/Vol] ng/mL Normal <=3.60 [facility] Comment on above: Performed By: #### C MREP ####[facility] Lovoztpxua[address] [place], [place] [address]Dr. Airam Tripathi HSTROP 5.8 pg/mL Normal 4.0-51.3 [facility] Comment on above: Result Comment: CUT- OFF POINTS HAVE BEEN ESTABLISHED BASED ON THE FOURTH UNIVERSAL DEFINITIONS OF MYOCARDIALINFARCTION. THE UPPER REFERENCE LIMIT (URL) OF TROPONIN, DEFINED THE 99TH PERCENTILE OFcTnI DISTRIBUTION IN A REFERENCE POPULATION, HAS BEEN CONFIRMED THE DECISION THRESHOLDFOR [place] DIAGNOSIS. Performed By: #### C MREP ####[facility] Wxzpslluhc[address] [place], [place] [address]Dr. Airam Tripathi CARDIAC CONSUELO ADMITon 022 CK [Catalytic activity/Vol] 121 U/L Normal 26-192 [facility] Comment on above: Performed By: #### T 4, BNP, MG, TSH, CMADM, CRP, CMP ####[facility] Okzplimidy[address] [place] [id number]. Airam Tripathi CK.MB [Mass/Vol] 3.06 ng/mL Normal <=3.60 [facility] Comment on above: Performed By: #### T 4, BNP, MG, TSH, CMADM, CRP, CMP ####[facility] P[address]unyygtdq[address] [place] [address]Dr. Airam Tripathi HSTROP 6.9 pg/mL Normal 4.0-51.3 [facility] Comment on above: Result Comment: CUT- OFF POINTS HAVE BEEN ESTABLISHED BASED ON THE FOURTH UNIVERSAL DEFINITIONS OF MYOCARDIALINFARCTION. THE UPPER REFERENCE LIMIT (URL) OF TROPONIN, DEFINED THE 99TH PERCENTILE OFcTnI DISTRIBUTION IN A REFERENCE POPULATION, HAS BEEN CONFIRMED THE DECISION THRESHOLDFOR AK DIAGNOSIS. Performed By: #### T 4, BNP, MG, TSH, CMADM, CRP, CMP ####[facility] Tcllduwhmp[address] [place] [address]Dr. Airam Tripathi KATHY 124 ng/mL Critically high 9-82 [facility] Comment on above: Performed By: #### T 4, BNP, MG, TSH, CMADM, CRP, CMP ####[facility] Qlvewzdjxg7[address] [place] [address]Dr. Airam Tripathi CBC AUTO DIFFon 06-13-2022 BASO # 0.0 103/ul Normal 0.0-0.1 [facility] Comment on above: Performed By: #### C BC ####[facility] Gedgcykcse[address] [place], [place] [address]Dr. Airam Tripathi Basophils/100 WBC (Bld) 0.2 % Normal 0.2-2.0 [facility] Comment on above: Performed By: #### C BC ####[facility] Ncmsdrgfne9[address] [place], [place] [address]Dr. Airam Tripathi EO # 0.2 103/ul Normal 0.0-0.7 [facility] Comment on above: Performed By: #### C BC ####[facility] Ftjjvyvxzf[address] [place], [place] [address]Dr. Airam Tripathi Eosinophils/100 WBC (Bld) 1.5 % Normal 0.9-7.0 [facility] Comment on above: Performed By: #### C BC ####[facility] Iyjoxecfxg[address] [place], [place] [address]Dr. Airam Tripathi Erythrocyte distribution width (RBC) [Ratio] 12.7 % Normal 11.0-15.0 [facility] Comment on above: Performed By: #### C BC ####[facility] Sdkysvivlw[address] [place], [place] [address]DrKianna Tripathi Hematocrit (Bld) [Volume fraction] 30.0 % Critically low 36.0-48.0 [facility] Comment on above: Performed By: #### C BC ####[facility] Hnlufzhxhy[address] [place], [place] [address]DrKianna Tripathi Hemoglobin (Bld) [Mass/Vol] 9.6 g/dL Critically low 12.0-16.0 [facility] Comment on above: Performed By: #### C BC ####[facility] Fxemgkjndg[address] [place], [place] [address]DrKianna Tripathi IG # 0.11 10e3/ul Critically high 0.00-0.03 [facility] Comment on above: Performed By: #### C BC ####[facility] Czuhnpkrln[address] [place], [place] [address]DrKianna Tripathi IG % 1.1 % Critically high 0.0-0.5 [facility] Comment on above: Performed By: #### C BC ####[facility] Tolvwypbdb[address] [place], [place] [address]DrKianna Tripathi LYMPH # 1.5 103/ul Normal 1.2-3.8 [facility] Comment on above: Performed By: #### C BC ####[facility] Wqcvfxhuha[address] [place], [place] [address]DrKianna Tripathi Lymphocytes/100 WBC (Bld) 14.9 % Critically low 20.5-60.0 [facility] Comment on above: Performed By: #### C BC ####[facility] Gxyismxxqw[address] [place], [place] [address]DrKianna Tripathi MANUAL DIFF REQ NO Normal [facility] Comment on above: Performed By: #### C BC ####[facility] Mlbmvviunr[address] [place], [place] [address]DrKianna Tripathi MCH (RBC) [Entitic mass] 30.0 pg Normal 26.7-34.0 [facility] Comment on above: Performed By: #### C BC ####[facility] Smnqvbskep[address] [place], [place] [address]DrKianna Tripathi MCHC (RBC) [Mass/Vol] 32.0 g/dL Normal 29.9-35.2 [facility] Comment on above: Performed By: #### C BC ####[facility] Awtgmkhrxp[address] [place] [address]Dr. Airam Tripathi MCV (RBC) [Entitic vol] 93.8 fL Normal 81.0-99.0 [facility] Comment on above: Performed By: #### C BC ####[facility] Uhcjqppupi[address] [place], [place] [address]Dr. Airam Tripathi MONO # 0.8 103/ul Normal 0.3-0.8 [facility] Comment on above: Performed By: #### C BC ####[facility] Cclfivkrzj25[address] [place], [place] [address]Dr. Airam Tripathi Monocytes/100 WBC (Bld) 7.3 % Normal 1.7-12.0 [facility] Comment on above: Performed By: #### C BC ####[facility] Aamdsiguyf54[address] [place], [place] [address]Dr. Airam Tripathi NEUT # 7.8 103/ul Critically high 1.4-6.5 [facility] Comment on above: Performed By: #### C BC ####[facility] Ehkbpwnxti724[address] [place], [place] [address]Dr. Airam Tripathi Neutrophils/100 WBC (Bld) 75.0 % Normal 43.0-75.0 [facility] Comment on above: Performed By: #### C BC ####[facility] Gfnbvmpxzl[address] [place], [place] [address]Dr. Airam Tripathi Platelet mean volume (Bld) [Entitic vol] 9.1 fL Critically low 9.5-13.5 [facility] Comment on above: Performed By: #### C BC ####[facility] Ajwudrsydc[address] [place], [place] [address]Dr. Airam Tripathi PLT 341 103/ul Normal 150-450 [facility] Comment on above: Performed By: #### C BC ####[facility] Ziqqbbccqk[address] [place], [place] [address]Dr. Airam Tripathi RBC 3.20 106/ul Critically low 4.20-5.40 [facility] Comment on above: Performed By: #### C BC ####[facility] [address]jemsh[address] [place], [place] [address]JzKianna Tripathi WBC 10.4 103/ul Normal 4.0-11.0 [facility] Comment on above: Performed By: #### C BC ####[facility] Bqmunmuczb27[address] [place], [place] [address]Qv. Airam Tripathi CRPon 06-13-2022 CRP [Mass/Vol] mg/L Normal <=1.0 [facility] Comment on above: Performed By: #### T 4, BNP, MG, TSH, CMADM, CRP, CMP ####[facility] Tunov[address]cjwv[address] [place], [place] [address]Uf. Airam Tri[address] CT HEAD WO CONon 06-13-2022 CT HEAD WO CON Normal [facility] Covid-19 PCR (CVDTB)on 05-26 SARS-CoV-2 (COVID-19) RNA MIKE+probe Ql (Unsp spec) Not detected Normal NOT DETECTED [facility] Comment on above: Result Comment: When [...] for this test is supported by the Global Position System Technician of Health and Human Service's declaration that [...] be used). Performed By: #### C VDTBH ####[facility] Nkokrqtcij5[address] [place], [place] [address]Ku. Airam Tripathi LACTATE/LACTIC ACIDon 2021 Lactate [Moles/Vol] 0.5 mmol/L Normal 0.4-1.9 [facility] Comment on above: Performed By: #### L ACT ####[facility] Bonlzifaqf[address] [place] [address]Dr. Airam Tripathi MAGNESIUMon 06-13-2022 Magnesium [Mass/Vol] 1.9 mg/dL Normal 1.8-2.4 [facility] Comment on above: Performed By: #### T 4, BNP, MG, TSH, CMADM, CRP, CMP ####[facility] Duxfwdpsuj[address] [place] [address]Dr. Airam Tripathi PROF 14(COMP METB)on 022 Albumin [Mass/Vol] 3.8 g/dL Normal 3.4-5.0 [facility] Comment on above: Performed By: #### T 4, BNP, MG, TSH, CMADM, CRP, CMP ####[facility] Gqytazzpua[address] [place] [address]Dr. Airam Tripathi Albumin/Globulin [Mass ratio] 1.1 {ratio} Normal [facility] Comment on above: Performed By: #### T 4, BNP, MG, TSH, CMADM, CRP, CMP ####[facility] Svzqbgcmpr64[address] [place] [address]Dr. Airam Tripathi ALP [Catalytic activity/Vol] 161 U/L Critically high 46-116 [facility] Comment on above: Performed By: #### T 4, BNP, MG, TSH, CMADM, CRP, CMP ####[facility] Frsuwxggjy[address] [place] [address]Dr. Airam Tripathi ALT [Catalytic activity/Vol] 21 U/L Normal 14-59 [facility] Comment on above: Performed By: #### T 4, BNP, MG, TSH, CMADM, CRP, CMP ####[facility] Qluerrpaed5[address] [place] [address]Dr. Airam Tripathi Anion gap [Moles/Vol] 12.6 mmol/L Normal [facility] Comment on above: Performed By: #### T 4, BNP, MG, TSH, CMADM, CRP, CMP ####[facility] Zdyfxjagch6[address] [place] [address]Dr. Airam Tripathi AST [Catalytic activity/Vol] 30 U/L Normal 15-37 [facility] Comment on above: Performed By: #### T 4, BNP, MG, TSH, CMADM, CRP, CMP ####[facility] Lxebwkoqga[address] [place], [place] [address]Dr. Airam Tripathi Bilirubin [Mass/Vol] 0.3 mg/dL Normal 0.2-1.0 [facility] Comment on above: Performed By: #### T 4, BNP, MG, TSH, CMADM, CRP, CMP ####[facility] Usalvpnmen156[address] [place], [place] [address]Dr. Airam Tripathi Calcium [Mass/Vol] 8.8 mg/dL Normal 8.5-10.1 [facility] Comment on above: Performed By: #### T 4, BNP, MG, TSH, CMADM, CRP, CMP ####[facility] Lskarrcbhs[address] [place], [place] [address]Dr. Airam Tripathi Chloride [Moles/Vol] 91 mmol/L Critically low 98-107 [facility] Comment on above: Performed By: #### T 4, BNP, MG, TSH, CMADM, CRP, CMP ####[facility] Teafplrbbg[address] [place], [place] [address]Dr. Airam Tripathi CO2 [Moles/Vol] 26.9 mmol/L Normal 21.0-32.0 [facility] Comment on above: Performed By: #### T 4, BNP, MG, TSH, CMADM, CRP, CMP ####[facility] Xdebkhnems[address] [place], [place] [address]Dr. Airam Tripathi Creatinine [Mass/Vol] 1.83 mg/dL Critically high 0.55-1.02 [facility] Comment on above: Performed By: #### T 4, BNP, MG, TSH, CMADM, CRP, CMP ####[facility] Kqjjvmtqgw[address] [place], [place] [address]Dr. Airam Tripathi EGFR-AF GUAMANIAN 34 mL/min/1.73m2 Critically low >=60 [facility] Comment on above: Performed By: #### T 4, BNP, MG, TSH, CMADM, CRP, CMP ####[facility] Hyqconhsuj[address] [place] [address]Dr. Airam Tripathi EGFR-NON AF GUAMANIAN 28 mL/min/1.73m2 Critically low >=60 [facility] Comment on above: Performed By: #### T 4, BNP, MG, TSH, CMADM, CRP, CMP ####[facility] Kjpfcowitu8[address] [place] [address]Dr. Airam Tripathi Globulin (S) [Mass/Vol] 3.5 g/dL Normal [facility] Comment on above: Performed By: #### T 4, BNP, MG, TSH, CMADM, CRP, CMP ####[facility] Jezdmkbojh[address] [place], [place] [address]Dr. Airam Tripathi Glucose [Mass/Vol] 96 mg/dL Normal 74-106 [facility] Comment on above: Performed By: #### T 4, BNP, MG, TSH, CMADM, CRP, CMP ####[facility] Kdkvrolxdv26[address] [place] [address]Dr. Airam Tripathi Potassium [Moles/Vol] 4.5 mmol/L Normal 3.5-5.1 [facility] Comment on above: Performed By: #### T 4, BNP, MG, TSH, CMADM, CRP, CMP ####[facility] Hlxhnnzgnd[address] [place], [place] [address]Dr. Airam Tripathi Protein [Mass/Vol] 7.3 g/dL Normal 6.4-8.2 [facility] Comment on above: Performed By: #### T 4, BNP, MG, TSH, CMADM, CRP, CMP ####[facility] Wkntkktpgk[address] [place], [place] [address]Dr. Airam Tripathi Sodium [Moles/Vol] 126 mmol/L Critically low 136-145 [facility] Comment on above: Performed By: #### T 4, BNP, MG, TSH, CMADM, CRP, CMP ####[facility] Dtbpvjdauf4[address] [place] [id number]. Airam Tripathi Urea nitrogen [Mass/Vol] 34.0 mg/dL Critically high 7.0-18.0 [facility] Comment on above: Performed By: #### T 4, BNP, MG, TSH, CMADM, CRP, CMP ####[facility] Kmvblrmgzd65[address] [place] [address]Dr. Airam Tripathi Urea nitrogen/Creatinine [Mass ratio] 18.6 mg/mg Normal [facility] Comment on above: Performed By: #### T 4, BNP, MG, TSH, CMADM, CRP, CMP ####[facility] Fdyalitoxu13[address] [place] [address]Dr. Airam Tripathi Albumin [Mass/Vol] 3.4 g/dL Normal 3.4-5.0 [facility] Comment on above: Performed By: #### C MP ####[facility] Piegxnwcbl[address] [place], [place] [address]Dr. Airam Tripathi Albumin/Globulin [Mass ratio] 1.0 {ratio} Normal [facility] Comment on above: Performed By: #### C MP ####[facility] Rhxuiizifa[address] [place], [place] [address]Dr. Airam Tripathi ALP [Catalytic activity/Vol] 151 U/L Critically high 46-116 [facility] Comment on above: Performed By: #### C MP ####[facility] [address]ix[address] [place] [address]Dr. Airam Tripathi ALT [Catalytic activity/Vol] 20 U/L Normal 14-59 [facility] Comment on above: Performed By: #### C MP ####[facility] Mfowrcbndl60[address] [place] [address]Dr. Airam Tripathi Anion gap [Moles/Vol] 11.7 mmol/L Normal [facility] Comment on above: Performed By: #### C MP ####[facility] Ekvaphwydc[address] [place], [place] [address]Dr. Airam Tripathi AST [Catalytic activity/Vol] 28 U/L Normal 15-37 [facility] Comment on above: Performed By: #### C MP ####[facility] Hudbzlpskn43[address] [place] [phone]. Airam Tripathi Bilirubin [Mass/Vol] 0.3 mg/dL Normal 0.2-1.0 [facility] Comment on above: Performed By: #### C MP ####[facility] Zbckhbvltt29[address] [place] [phone]. Airam Tripathi Calcium [Mass/Vol] 8.5 mg/dL Normal 8.5-10.1 [facility] Comment on above: Performed By: #### C MP ####[facility] Brfxulasvo[address] [place], [place] [address]Dr. Airam Tripathi Chloride [Moles/Vol] 91 mmol/L Critically low 98-107 [facility] Comment on above: Performed By: #### C MP ####[facility] Dxzogutubs217[address] [place], [place] [address]Dr. Airam Tripathi CO2 [Moles/Vol] 28.3 mmol/L Normal 21.0-32.0 [facility] Comment on above: Performed By: #### C MP ####[facility] Gqfluidcus[address] [place], [place] [address]Dr. Airam Tripathi Creatinine [Mass/Vol] 1.68 mg/dL Critically high 0.55-1.02 [facility] Comment on above: Performed By: #### C MP ####[facility] Stjqfuwunp[address] [place], [place] [address]Dr. Airam Tripathi EGFR-AF GUAMANIAN 38 mL/min/1.73m2 Critically low >=60 [facility] Comment on above: Performed By: #### C MP ####[facility] Dtaieaycqq02[address] [place] [id number]. Airam Tripathi EGFR-NON AF GUAMANIAN 31 mL/min/1.73m2 Critically low >=60 [facility] Comment on above: Performed By: #### C MP ####[facility] Hmhigazgvl[address] [place], [place] [address]Dr. Airam Deuce Globulin (S) [Mass/Vol] 3.5 g/dL Normal [facility] Comment on above: Performed By: #### C MP ####[facility] Oaokomfmwr5[address] [place] [phone]. Airam Tripathi Glucose [Mass/Vol] 74 mg/dL Normal 74-106 [facility] Comment on above: Performed By: #### C MP ####[facility] Vhedakrfqr7[address] [place] [phone]. Airam Tripathi Potassium [Moles/Vol] 4.0 mmol/L Normal 3.5-5.1 [facility] Comment on above: Performed By: #### C MP ####[facility] Rcpeyalewb45[address] [place] [address]Dr. Airam Tripathi Protein [Mass/Vol] 6.9 g/dL Normal 6.4-8.2 [facility] Comment on above: Performed By: #### C MP ####[facility] Xtszygnnjw[address] [place], [place] [address]Dr. Airam Tripathi Sodium [Moles/Vol] 127 mmol/L Critically low 136-145 [facility] Comment on above: Performed By: #### C MP ####[facility] Iggzdyqtas[address] [place], [place] [address]Dr. Airam Tripathi Urea nitrogen [Mass/Vol] 29.0 mg/dL Critically high 7.0-18.0 [facility] Comment on above: Performed By: #### C MP ####[facility] Ymkyzyxoxx[address] [place], [place] [address]Dr. Airam Tripathi Urea nitrogen/Creatinine [Mass ratio] 17.3 mg/mg Normal [facility] Comment on above: Performed By: #### C MP ####[facility] Namczjbuhw[address] [place], [place] [address]Dr. Airam Tripathi T4on 06-13-2022 T4 [Mass/Vol] 6.80 ug/dL Normal 4.80-13.90 [facility] Comment on above: Performed By: #### T 4, BNP, MG, TSH, CMADM, CRP, CMP ####[facility] Mdldmjwcgh[address] [place] [address]Dr. Airam Tripathi TSHon 06-13-2022 TSH 0.101 uIU/mL Critically low 0.358-3.74 0 [facility] Comment on above: Performed By: #### T 4, BNP, MG, TSH, CMADM, CRP, CMP ####[facility] Ljciauquxw[address] [place], [place] [address]Dr. Airam Tripathi OSMOLALITYon 06-08-2022 Osmolality [Osmolality] 272 mosm/kg Critically low 275-295 [facility] Comment on above: Performed By: #### O SMO ####[facility] Clzupaohdw[address] [place], [place] [address]Dr. Airam Tripathi CBC AUTO DIFFon 06-06-2022 BASO # 0.0 103/ul Normal 0.0-0.1 [facility] Comment on above: Performed By: #### C BC ####[facility] Ytmpvwsfei[address] [place], [place] [address]Dr. Airam Tripathi Basophils/100 WBC (Bld) 0.3 % Normal 0.2-2.0 [facility] Comment on above: Performed By: #### C BC ####[facility] Njrdjvcgjf[address] [place], [place] [address]Dr. Airam Tripathi EO # 0.2 103/ul Normal 0.0-0.7 [facility] Comment on above: Performed By: #### C BC ####[facility] Kycyygeyyb[address] [place], [place] [address]Dr. Airam Tripathi Eosinophils/100 WBC (Bld) 2.5 % Normal 0.9-7.0 [facility] Comment on above: Performed By: #### C BC ####[facility] Wcxciqxmrv[address] [place], [place] [address]Dr. Airam Tripathi Erythrocyte distribution width (RBC) [Ratio] 12.9 % Normal 11.0-15.0 [facility] Comment on above: Performed By: #### C BC ####[facility] Nxearabxst[address] [place], [place] [address]Dr. Airam Tripathi Hematocrit (Bld) [Volume fraction] 29.8 % Critically low 36.0-48.0 [facility] Comment on above: Performed By: #### C BC ####[facility] [address]ssnvrur[address] [place] [id number]. Airam Tripathi Hemoglobin (Bld) [Mass/Vol] 9.7 g/dL Critically low 12.0-16.0 [facility] Comment on above: Performed By: #### C BC ####[facility] Uusdinlqmm[address] [place] [phone]. Airam Tripathi IG # 0.03 10e3/ul Normal 0.00-0.03 [facility] Comment on above: Performed By: #### C BC ####[facility] Cdpuaffxib[address]51 [place] [address]Dr. Airam Tripathi IG % 0.3 % Normal 0.0-0.5 [facility] Comment on above: Performed By: #### C BC ####[facility] Ztowfbrwtb[address] [place], [place] [address]Dr. Airam Tripathi LYMPH # 1.3 103/ul Normal 1.2-3.8 [facility] Comment on above: Performed By: #### C BC ####[facility] Vfefodzmlf4[address] [place] [address]Dr. Airam Tripathi Lymphocytes/100 WBC (Bld) 14.6 % Critically low 20.5-60.0 [facility] Comment on above: Performed By: #### C BC ####[facility] Nkmdwzqdcg[address] [place] [address]Dr. Airam Tripathi MANUAL DIFF REQ NO Normal [facility] Comment on above: Performed By: #### C BC ####[facility] Ifiihyxeax8314 [place] [phone]. Airam Tripathi MCH (RBC) [Entitic mass] 30.6 pg Normal 26.7-34.0 [facility] Comment on above: Performed By: #### C BC ####[facility] Yklcjmpdfh[address] [place] [phone]. Airam Tripathi MCHC (RBC) [Mass/Vol] 32.6 g/dL Normal 29.9-35.2 [facility] Comment on above: Performed By: #### C BC ####[facility] Qcyfurohde[address] [place] [phone]. Airam Tripathi MCV (RBC) [Entitic vol] 94.0 fL Normal 81.0-99.0 [facility] Comment on above: Performed By: #### C BC ####[facility] Zvvtutebft85[address] [place] [id number]. Airam Tripathi MONO # 0.5 103/ul Normal 0.3-0.8 [facility] Comment on above: Performed By: #### C BC ####[facility] Oglbtrjteh[address] [place] [address]Dr. Airam Tripathi Monocytes/100 WBC (Bld) 5.7 % Normal 1.7-12.0 [facility] Comment on above: Performed By: #### C BC ####[facility] Dvgkiuacap[address] [place], [place] [address]Dr. Airam Tripathi NEUT # 6.9 103/ul Critically high 1.4-6.5 [facility] Comment on above: Performed By: #### C BC ####[facility] Lurxqsajqr[address] [place], [place] [id number]. Airam Tripathi Neutrophils/100 WBC (Bld) 76.6 % Critically high 43.0-75.0 [facility] Comment on above: Performed By: #### C BC ####[facility] Kexlsqacck[address] [place], [place] [id number]. Airam Tripathi Platelet mean volume (Bld) [Entitic vol] 9.2 fL Critically low 9.5-13.5 [facility] Comment on above: Performed By: #### C BC ####[facility] Yubapnrrei[address] [place], [place] [id number]. Airam Tripathi PLT 271 103/ul Normal 150-450 [facility] Comment on above: Performed By: #### C BC ####[facility] Nyezuprotj[address] [place], [place] [id number]. Selenaneil Deuce RBC 3.17 106/ul Critically low 4.20-5.40 [facility] Comment on above: Performed By: #### C BC ####[facility] Gnjrjbjvyu6[address] [place] [address]Dr. Airam Tripathi WBC 9.1 103/ul Normal 4.0-11.0 [facility] Comment on above: Performed By: #### C BC ####[facility] Rwbkhhbsor9982 [place] [address]Dr. Airam Tripathi PROF 14(COMP METB)on 022 Albumin [Mass/Vol] 3.4 g/dL Normal 3.4-5.0 [facility] Comment on above: Performed By: #### C MP ####[facility] Ukmndibjxh50[address] [place] [address]Dr. Airam Tripathi Albumin/Globulin [Mass ratio] 1.0 {ratio} Normal [facility] Comment on above: Performed By: #### C MP ####[facility] Aopmxyrnuw[address] [place], [place] [address]Dr. Airam Tripathi ALP [Catalytic activity/Vol] 156 U/L Critically high 46-116 [facility] Comment on above: Performed By: #### C MP ####[facility] Ldnwufhibn90[address] [place] [address]Dr. Airam Tripathi ALT [Catalytic activity/Vol] 18 U/L Normal 14-59 [facility] Comment on above: Performed By: #### C MP ####[facility] Cjzlaixfpx5202 [place] [address]Dr. Airam Tripathi Anion gap [Moles/Vol] 10.8 mmol/L Normal [facility] Comment on above: Performed By: #### C MP ####[facility] Tjavjzlnrv3685 [place] [address]Dr. Airam Tripathi AST [Catalytic activity/Vol] 27 U/L Normal 15-37 [facility] Comment on above: Performed By: #### C MP ####[facility] Sakgmgaylk1126 [place] [address]Dr. Airam Tripathi Bilirubin [Mass/Vol] 0.2 mg/dL Normal 0.2-1.0 [facility] Comment on above: Performed By: #### C MP ####[facility] Hqkqyhucoc8057 [place] [phone]. Airam Tripathi Calcium [Mass/Vol] 8.1 mg/dL Critically low 8.5-10.1 [facility] Comment on above: Performed By: #### C MP ####[facility] Hpassmmfox4309 [place] [phone]. Airam Tripathi Chloride [Moles/Vol] 92 mmol/L Critically low 98-107 [facility] Comment on above: Performed By: #### C MP ####[facility] Fffwcxnpij[address] [place], [place] [address]Dr. Airam Tripathi CO2 [Moles/Vol] 27.4 mmol/L Normal 21.0-32.0 [facility] Comment on above: Performed By: #### C MP ####[facility] Qvxtpswubn[address] [place], [place] [address]Dr. Airam Tripathi Creatinine [Mass/Vol] 1.57 mg/dL Critically high 0.55-1.02 [facility] Comment on above: Performed By: #### C MP ####[facility] Gtlpxsqloj29[address] [place], [place] [address]Dr. Airam Tripathi EGFR-AF GUAMANIAN 41 mL/min/1.73m2 Critically low >=60 [facility] Comment on above: Performed By: #### C MP ####[facility] Ncneqfjlex7[address] [place], [place] [address]Dr. Airam Tripathi EGFR-NON AF GUAMANIAN 34 mL/min/1.73m2 Critically low >=60 [facility] Comment on above: Performed By: #### C MP ####[facility] Oyzmukvxrv987[address] [place], [place] [address]Dr. Airam Tripathi Globulin (S) [Mass/Vol] 3.4 g/dL Normal [facility] Comment on above: Performed By: #### C MP ####[facility] Kjpmnfvokp9[address] [place], [place] [address]Dr. Airam Tripathi Glucose [Mass/Vol] 82 mg/dL Normal 74-106 [facility] Comment on above: Performed By: #### C MP ####[facility] Tbxthrveus408[address] [place], [place] [address]Dr. Airam Tripathi Potassium [Moles/Vol] 4.2 mmol/L Normal 3.5-5.1 [facility] Comment on above: Performed By: #### C MP ####[facility] Hgefynqxiv[address] [place], [place] [address]Dr. Airam Tripathi Protein [Mass/Vol] 6.8 g/dL Normal 6.4-8.2 [facility] Comment on above: Performed By: #### C MP ####[facility] Sbuviftpjh89[address] [place], [place] [address]Dr. Airam Tripathi Sodium [Moles/Vol] 126 mmol/L Critically low 136-145 [facility] Comment on above: Performed By: #### C MP ####[facility] Fxvqzitczd627[address] [place], [place] [address]Dr. Airam Tripathi Urea nitrogen [Mass/Vol] 35.0 mg/dL Critically high 7.0-18.0 [facility] Comment on above: Performed By: #### C MP ####[facility] Mgzzwjqrec735[address] [place], [place] [address]Dr. Airam Tripathi Urea nitrogen/Creatinine [Mass ratio] 22.3 mg/mg Normal [facility] Comment on above: Performed By: #### C MP ####[facility] Lztchaswop37[address] [place], [place] [address]Dr. Airam Tripathi OSMOLALITYon 06-02-2022 Osmolality [Osmolality] 276 mosm/kg Normal 275-295 [facility] Comment on above: Performed By: #### O SMO ####[facility] Lpvyobiovo7[address] [place], [place] [address]Dr. Airam Tripathi CBC AUTO DIFFon 06-01-2022 BASO # 0.1 103/ul Normal 0.0-0.1 [facility] Comment on above: Performed By: #### C BC ####[facility] Frvymghafg395[address] [place], [place] [address]Dr. Airam Tripathi Basophils/100 WBC (Bld) 0.7 % Normal 0.2-2.0 [facility] Comment on above: Performed By: #### C BC ####[facility] Iyinzahuai[address] [place] [address]Dr. Airam Tripathi EO # 0.3 103/ul Normal 0.0-0.7 [facility] Comment on above: Performed By: #### C BC ####[facility] Sasfbffume57[address] [place] [address]Dr. Airam Tripathi Eosinophils/100 WBC (Bld) 3.3 % Normal 0.9-7.0 [facility] Comment on above: Performed By: #### C BC ####[facility] Fqygklxofn[address] [place], [place] [address]Dr. Airam Tripathi Erythrocyte distribution width (RBC) [Ratio] 13.2 % Normal 11.0-15.0 [facility] Comment on above: Performed By: #### C BC ####[facility] Jvomljnylr08[address] [place], [place] [address]Dr. Selenaneil Tripathi Hematocrit (Bld) [Volume fraction] 32.0 % Critically low 36.0-48.0 [facility] Comment on above: Performed By: #### C BC ####[facility] Jfzvgxufts[address] [place], [place] [address]Dr. Airam Tripathi Hemoglobin (Bld) [Mass/Vol] 10.3 g/dL Critically low 12.0-16.0 [facility] Comment on above: Performed By: #### C BC ####[facility] Vdouwlwlfa[address] [place], [place] [address]Dr. Airam Tripathi IG # 0.05 10e3/ul Critically high 0.00-0.03 [facility] Comment on above: Performed By: #### C BC ####[facility] Rqutjomthr[address] [place], [place] [address]Dr. Selenaneil Tripathi IG % 0.7 % Critically high 0.0-0.5 [facility] Comment on above: Performed By: #### C BC ####[facility] Yehuyrwgsf994[address] [place], [place] [address]Dr. Airam Tripathi LYMPH # 1.7 103/ul Normal 1.2-3.8 [facility] Comment on above: Performed By: #### C BC ####[facility] Ylrttowfba3917 [place] [phone]. Airam Tripathi Lymphocytes/100 WBC (Bld) 22.6 % Normal 20.5-60.0 [facility] Comment on above: Performed By: #### C BC ####[facility] Fguyfrbloo07[address] [place] [address]Dr. Airam Tripathi MANUAL DIFF REQ NO Normal [facility] Comment on above: Performed By: #### C BC ####[facility] Dynsybeksg3924 [place] [phone]. Airam Tripathi MCH (RBC) [Entitic mass] 30.8 pg Normal 26.7-34.0 [facility] Comment on above: Performed By: #### C BC ####[facility] Saletrzrkv[address] [place], [place] [address]Dr. Airam Tripathi MCHC (RBC) [Mass/Vol] 32.2 g/dL Normal 29.9-35.2 [facility] Comment on above: Performed By: #### C BC ####[facility] Zzodfgfxdd[address] [place], [place] [address]Dr. Airam Tripathi MCV (RBC) [Entitic vol] 95.8 fL Normal 81.0-99.0 [facility] Comment on above: Performed By: #### C BC ####[facility] Trurazuidn[address] [place], [place] [address]Dr. Airam Tripathi MONO # 0.6 103/ul Normal 0.3-0.8 [facility] Comment on above: Performed By: #### C BC ####[facility] Uzdxmldldj[address] [place], [place] [id number]. Airam Tripathi Monocytes/100 WBC (Bld) 8.6 % Normal 1.7-12.0 [facility] Comment on above: Performed By: #### C BC ####[facility] Uzsrnukubi[address] [place], [place] [address]Dr. Airam Tripathi NEUT # 4.8 103/ul Normal 1.4-6.5 [facility] Comment on above: Performed By: #### C BC ####[facility] Gcemwjjgln1167 [place] [phone]. Selenaneil Deuce Neutrophils/100 WBC (Bld) 64.1 % Normal 43.0-75.0 [facility] Comment on above: Performed By: #### C BC ####[facility] Ztpytfjdzk0975 [place] [phone]. Airam Tripathi Platelet mean volume (Bld) [Entitic vol] 10.0 fL Normal 9.5-13.5 [facility] Comment on above: Performed By: #### C BC ####[facility] Habyutbakb48[address] [place] [address]Dr. Airam Tripathi PLT 322 103/ul Normal 150-450 [facility] Comment on above: Performed By: #### C BC ####[facility] Loptwqkkte6332 [place] [address]Dr. Airam Tripathi RBC 3.34 106/ul Critically low 4.20-5.40 [facility] Comment on above: Performed By: #### C BC ####[facility] Wicsqwoelq1339 [place] [phone]. Airam Tripathi WBC 7.5 103/ul Normal 4.0-11.0 [facility] Comment on above: Performed By: #### C BC ####[facility] Bzkigcwlal7773 [place] [address]DrKianna Tripathi PROF 14(COMP METB)on 022 Albumin [Mass/Vol] 3.5 g/dL Normal 3.4-5.0 [facility] Comment on above: Performed By: #### C MP ####[facility] Cgxjjbunoy8178 [place] [address]DrKianna Tripathi Albumin/Globulin [Mass ratio] 1.1 {ratio} Normal [facility] Comment on above: Performed By: #### C MP ####[facility] Lukrucanqp9074 [place] [phone] Tripathi ALP [Catalytic activity/Vol] 167 U/L Critically high 46-116 [facility] Comment on above: Performed By: #### C MP ####[facility] Fyxlgdcbfi7285 [place] [phone]. Airam Tripathi ALT [Catalytic activity/Vol] 24 U/L Normal 14-59 [facility] Comment on above: Performed By: #### C MP ####[facility] Zahrzkvkij6264 [place] [phone]. Airam Tripathi Anion gap [Moles/Vol] 14.1 mmol/L Normal [facility] Comment on above: Performed By: #### C MP ####[facility] Vzyrjlkzdv3504 [place] [address]Dr. Airam Tripathi AST [Catalytic activity/Vol] 27 U/L Normal 15-37 [facility] Comment on above: Performed By: #### C MP ####[facility] Lwxkjlmlqz[address] [place], [place] [address]Dr. Airam Deuce Bilirubin [Mass/Vol] 0.3 mg/dL Normal 0.2-1.0 [facility] Comment on above: Performed By: #### C MP ####[facility] Afjcoxtoof7761 [place] [address]Dr. Airam Deuce Calcium [Mass/Vol] 8.0 mg/dL Critically low 8.5-10.1 [facility] Comment on above: Performed By: #### C MP ####[facility] Mpmmcgjqmf[address] [place], [place] [address]Dr. Selenaneil Deuce Chloride [Moles/Vol] 96 mmol/L Critically low 98-107 [facility] Comment on above: Performed By: #### C MP ####[facility] Rzgobyfvec1646 [place] [phone]. Airam Deuce CO2 [Moles/Vol] 24.6 mmol/L Normal 21.0-32.0 [facility] Comment on above: Performed By: #### C MP ####[facility] Lhpdrcvsmo82[address] [place], [place] [address]Dr. Airam Tripathi Creatinine [Mass/Vol] 1.79 mg/dL Critically high 0.55-1.02 [facility] Comment on above: Performed By: #### C MP ####[facility] Cscjyjzese3202 [place] [phone]. Airam Tripathi EGFR-AF GUAMANIAN 35 mL/min/1.73m2 Critically low >=60 [facility] Comment on above: Performed By: #### C MP ####[facility] Xgjwsvkjjs1021 [place] [phone]. Airam Deuce EGFR-NON AF GUAMANIAN 29 mL/min/1.73m2 Critically low >=60 [facility] Comment on above: Performed By: #### C MP ####[facility] Onnquoxsti3512 [place] [phone]. Airam Deuce Globulin (S) [Mass/Vol] 3.3 g/dL Normal [facility] Comment on above: Performed By: #### C MP ####[facility] Xaijexljmv8244 [place] [address]Dr. Airam Tripathi Glucose [Mass/Vol] 58 mg/dL Critically low 74-106 [facility] Comment on above: Performed By: #### C MP ####[facility] Isctumyfrz9788 [place] [phone]. Airam Deuce Potassium [Moles/Vol] 4.7 mmol/L Normal 3.5-5.1 [facility] Comment on above: Performed By: #### C MP ####[facility] Uafxprqayg4316 [place] [phone]. Airam Tripathi Protein [Mass/Vol] 6.8 g/dL Normal 6.4-8.2 [facility] Comment on above: Performed By: #### C MP ####[facility] Xkumtoujlk1026 [place] [phone]. Selenaneil Tripathi Sodium [Moles/Vol] 130 mmol/L Critically low 136-145 [facility] Comment on above: Performed By: #### C MP ####[facility] Vajnselsod8399 [place] [phone]. Airam Tripathi Urea nitrogen [Mass/Vol] 30.0 mg/dL Critically high 7.0-18.0 [facility] Comment on above: Performed By: #### C MP ####[facility] Seqcnfonpf3609 [place] [address]Dr. Airam Tripathi Urea nitrogen/Creatinine [Mass ratio] 16.8 mg/mg Normal [facility] Comment on above: Performed By: #### C MP ####[facility] Kaggmiblxn[address] [place], [place] [address]Dr. Airam Tripathi OSMOLALITYon 05-28-2022 Osmolality [Osmolality] 275 mosm/kg Normal 275-295 [facility] Comment on above: Performed By: #### O SMO ####[facility] Fvytzvnvtq[address] [place], [place] [address]Dr. Airam Deuce CBC AUTO DIFFon 05-26-2022 BASO # 0.0 103/ul Normal 0.0-0.1 [facility] Comment on above: Performed By: #### C BC ####[facility] Zzrpxhwnpa[address] [place], [place] [address]Dr. Airam Deuce Basophils/100 WBC (Bld) 0.4 % Normal 0.2-2.0 [facility] Comment on above: Performed By: #### C BC ####[facility] Ygtzepfosm[address] [place], [place] [address]Dr. Airam Deuce EO # 0.3 103/ul Normal 0.0-0.7 [facility] Comment on above: Performed By: #### C BC ####[facility] Zqluijmqeu29[address] [place], [place] [address]Dr. Airam Deuce Eosinophils/100 WBC (Bld) 3.2 % Normal 0.9-7.0 [facility] Comment on above: Performed By: #### C BC ####[facility] Dqclkrlcdl[address] [place], [place] [address]DrKianna Airam Tripathi Erythrocyte distribution width (RBC) [Ratio] 13.0 % Normal 11.0-15.0 [facility] Comment on above: Performed By: #### C BC ####[facility] Awbludujnf[address] [place], [place] [address]DrKianna Airam Deuce Hematocrit (Bld) [Volume fraction] 30.4 % Critically low 36.0-48.0 [facility] Comment on above: Performed By: #### C BC ####[facility] Fkwuqzdpxl5199 [place] [address]DrKianna Airam Tripathi Hemoglobin (Bld) [Mass/Vol] 9.6 g/dL Critically low 12.0-16.0 [facility] Comment on above: Performed By: #### C BC ####[facility] Dpzymqxess0676 [place] [address]DrKianna Waltersneil Tripathi IG # 0.06 10e3/ul Critically high 0.00-0.03 [facility] Comment on above: Performed By: #### C BC ####[facility] Hezynzevmx[address] [place], [place] [address]DrKianna Tripathi IG % 0.7 % Critically high 0.0-0.5 [facility] Comment on above: Performed By: #### C BC ####[facility] Unplzrtsfa[address] [place], [place] [address]DrKianna Tripathi LYMPH # 1.9 103/ul Normal 1.2-3.8 [facility] Comment on above: Performed By: #### C BC ####[facility] Nyjmpibwca[address] [place], [place] [address]DrKianna Tripathi Lymphocytes/100 WBC (Bld) 20.6 % Normal 20.5-60.0 [facility] Comment on above: Performed By: #### C BC ####[facility] Rztsahtgoq4217 [place] [address]DrKianna Tripathi MANUAL DIFF REQ NO Normal [facility] Comment on above: Performed By: #### C BC ####[facility] Euiknzepdi7258 [place] [phone] Tripathi MCH (RBC) [Entitic mass] 30.1 pg Normal 26.7-34.0 [facility] Comment on above: Performed By: #### C BC ####[facility] Iaqmcovnjt7108 [place] [address]DrKianna Tripathi MCHC (RBC) [Mass/Vol] 31.6 g/dL Normal 29.9-35.2 [facility] Comment on above: Performed By: #### C BC ####[facility] Stvwgwaidh8806 [place] [address]Dr. Airam Tripathi MCV (RBC) [Entitic vol] 95.3 fL Normal 81.0-99.0 [facility] Comment on above: Performed By: #### C BC ####[facility] Ldqmhzrkmo1819 [place] [phone]. Airam Tripathi MONO # 0.6 103/ul Normal 0.3-0.8 [facility] Comment on above: Performed By: #### C BC ####[facility] Ttrdssmmta2775 [place] [address]Dr. Selenaneil Tripathi Monocytes/100 WBC (Bld) 6.9 % Normal 1.7-12.0 [facility] Comment on above: Performed By: #### C BC ####[facility] Ryqeluepgj[address] [place], [place] [address]Dr. Airam Tripathi NEUT # 6.1 103/ul Normal 1.4-6.5 [facility] Comment on above: Performed By: #### C BC ####[facility] Qgdogbufet[address] [place], [place] [address]Dr. Selenaneil Tripathi Neutrophils/100 WBC (Bld) 68.2 % Normal 43.0-75.0 [facility] Comment on above: Performed By: #### C BC ####[facility] Ljnnhqatod99[address] [place], [place] [address]Dr. Airam Deuce Platelet mean volume (Bld) [Entitic vol] 9.7 fL Normal 9.5-13.5 [facility] Comment on above: Performed By: #### C BC ####[facility] Gqgcorimmd[address] [place], [place] [address]Dr. Airam Tripathi PLT 317 103/ul Normal 150-450 [facility] Comment on above: Performed By: #### C BC ####[facility] Fvanokkkbb7284 [place] [phone]. Airam Tripathi RBC 3.19 106/ul Critically low 4.20-5.40 [facility] Comment on above: Performed By: #### C BC ####[facility] Aumknxvdgs1511 [place] [address]Dr. Airam Tripathi WBC 9.0 103/ul Normal 4.0-11.0 [facility] Comment on above: Performed By: #### C BC ####[facility] Zpgekbcxlf9806 [place] [address]Dr. Ariam Tripathi PROF 14(COMP METB)on 022 Albumin [Mass/Vol] 3.4 g/dL Normal 3.4-5.0 [facility] Comment on above: Performed By: #### C MP ####[facility] Kprogkpcdn4317 [place] [address]Dr. Airam Tripathi Albumin/Globulin [Mass ratio] 1.0 {ratio} Normal [facility] Comment on above: Performed By: #### C MP ####[facility] Qxaykmzxca[address] [place], [place] [address]Dr. Airam Tripathi ALP [Catalytic activity/Vol] 153 U/L Critically high 46-116 [facility] Comment on above: Performed By: #### C MP ####[facility] Nadhgwnswz[address] [place], [place] [address]Dr. Airam Tripathi ALT [Catalytic activity/Vol] 21 U/L Normal 14-59 [facility] Comment on above: Performed By: #### C MP ####[facility] Nhgbfpjpky9573 [place] [address]Dr. Airam Tripathi Anion gap [Moles/Vol] 13.6 mmol/L Normal [facility] Comment on above: Performed By: #### C MP ####[facility] Rikaculish3078 [place] [address]Dr. Airam Tripathi AST [Catalytic activity/Vol] 23 U/L Normal 15-37 [facility] Comment on above: Performed By: #### C MP ####[facility] Egwvfrseyl1304 [place] [address]Dr. Airam Tripathi Bilirubin [Mass/Vol] 0.2 mg/dL Normal 0.2-1.0 [facility] Comment on above: Performed By: #### C MP ####[facility] Mmiwpihapr5425 [place] [phone]. Airam Tripathi Calcium [Mass/Vol] 8.4 mg/dL Critically low 8.5-10.1 [facility] Comment on above: Performed By: #### C MP ####[facility] Xenksyuesf7293 [place] [phone]. Airam Deuce Chloride [Moles/Vol] 97 mmol/L Critically low 98-107 [facility] Comment on above: Performed By: #### C MP ####[facility] Qkeufuqote9169 [place] [address]Dr. Airam Tripathi CO2 [Moles/Vol] 25.2 mmol/L Normal 21.0-32.0 [facility] Comment on above: Performed By: #### C MP ####[facility] Qdsyyjkhuq[address] [place], [place] [address]Dr. Airam Deuce Creatinine [Mass/Vol] 1.58 mg/dL Critically high 0.55-1.02 [facility] Comment on above: Performed By: #### C MP ####[facility] Qjilyrwaai[address] [place], [place] [address]Dr. Airam Deuce EGFR-AF GUAMANIAN 40 mL/min/1.73m2 Critically low >=60 [facility] Comment on above: Performed By: #### C MP ####[facility] Uoxerdjbuf[address] [address] [place], [place] [address]Dr. Airam Deuce EGFR-NON AF GUAMANIAN 33 mL/min/1.73m2 Critically low >=60 [facility] Comment on above: Performed By: #### C MP ####[facility] Pnvmwgrkyq[address] [place], [place] [address]Dr. Airam Tripathi Globulin (S) [Mass/Vol] 3.4 g/dL Normal [facility] Comment on above: Performed By: #### C MP ####[facility] [address] [place] [address]Dr. Airam Tripathi Glucose [Mass/Vol] 74 mg/dL Normal 74-106 [facility] Comment on above: Performed By: #### C MP ####[facility] [address] [place] [address]Dr. Airam Deuce Potassium [Moles/Vol] 4.8 mmol/L Normal 3.5-5.1 [facility] Comment on above: Performed By: #### C MP ####[facility] [address] [place] [address]Dr. Airam Deuce Protein [Mass/Vol] 6.8 g/dL Normal 6.4-8.2 [facility] Comment on above: Performed By: #### C MP ####[facility] Jjlkubppcf[address] [place], [place] [address]Dr. Airam Deuce Sodium [Moles/Vol] 131 mmol/L Critically low 136-145 [facility] Comment on above: Performed By: #### C MP ####[facility] Yzrmnrrvvu[address] [place], [place] [address]Dr. Airam Tripathi Urea nitrogen [Mass/Vol] 31.0 mg/dL Critically high 7.0-18.0 [facility] Comment on above: Performed By: #### C MP ####[facility] Okjicfjnxa[address] [place], [place] [address]Dr. Selenaneil Tripathi Urea nitrogen/Creatinine [Mass ratio] 19.6 mg/mg Normal [facility] Comment on above: Performed By: #### C MP ####[facility] Ezumlkrypf[address] [place], [place] [address]Dr. Airam Tripathi OSMOLALITYon 05-19-2022 Osmolality [Osmolality] 281 mosm/kg Normal 275-295 [facility] Comment on above: Performed By: #### O SMO ####[facility] Aafsrzlppi[address] [place], [place] [address]DrKianna Airam Deuce CBC AUTO DIFFon 05-17-2022 BASO # 0.1 103/ul Normal 0.0-0.1 [facility] Comment on above: Performed By: #### C BC ####[facility] Hpljvxnbie[address] [place], [place] [address]Dr. Airam Tripathi Basophils/100 WBC (Bld) 0.6 % Normal 0.2-2.0 [facility] Comment on above: Performed By: #### C BC ####[facility] Lksloctfrk[address] [place], [place] [address]DrKianna Tripathi EO # 0.2 103/ul Normal 0.0-0.7 [facility] Comment on above: Performed By: #### C BC ####[facility] Inpjuqbwjr80[address] [place], [place] [address]DrKianna Tripathi Eosinophils/100 WBC (Bld) 1.9 % Normal 0.9-7.0 [facility] Comment on above: Performed By: #### C BC ####[facility] Nvmjqucjtl[address] [place], [place] [address]DrKianna Tripathi Erythrocyte distribution width (RBC) [Ratio] 12.9 % Normal 11.0-15.0 [facility] Comment on above: Performed By: #### C BC ####[facility] Zvtfzeolpy[address] [place], [place] [address]DrKianna Tripathi Hematocrit (Bld) [Volume fraction] 32.1 % Critically low 36.0-48.0 [facility] Comment on above: Performed By: #### C BC ####[facility] Ajnyefulze309[address] [place], [place] [address]DrKianna Tripathi Hemoglobin (Bld) [Mass/Vol] 9.9 g/dL Critically low 12.0-16.0 [facility] Comment on above: Performed By: #### C BC ####[facility] Wjdszxsptz[address] [place], [place] [address]DrKianna Tripathi IG # 0.05 10e3/ul Critically high 0.00-0.03 [facility] Comment on above: Performed By: #### C BC ####[facility] Cttqwtebqq27[address] [place], [place] [address]DrKianna Tripathi IG % 0.6 % Critically high 0.0-0.5 [facility] Comment on above: Performed By: #### C BC ####[facility] Ivubsbvqau650[address] [place], [place] [address]DrKianna Tripathi LYMPH # 1.3 103/ul Normal 1.2-3.8 [facility] Comment on above: Performed By: #### C BC ####[facility] [address] [place] [address]Dr. Airam Tripathi Lymphocytes/100 WBC (Bld) 15.2 % Critically low 20.5-60.0 [facility] Comment on above: Performed By: #### C BC ####[facility] Vukfhbclea646[address] [place], [place] [address]Dr. Airam Tripathi MANUAL DIFF REQ NO Normal [facility] Comment on above: Performed By: #### C BC ####[facility] Qgannkosro748[address] [place], [place] [address]Dr. Airam Tripathi MCH (RBC) [Entitic mass] 30.0 pg Normal 26.7-34.0 [facility] Comment on above: Performed By: #### C BC ####[facility] Pxtwcuemen013[address] [place], [place] [address]Dr. Airam Tripathi MCHC (RBC) [Mass/Vol] 30.8 g/dL Normal 29.9-35.2 [facility] Comment on above: Performed By: #### C BC ####[facility] Ukplcsfbaj427[address] [place], [place] [address]Dr. Airam Tripathi MCV (RBC) [Entitic vol] 97.3 fL Normal 81.0-99.0 [facility] Comment on above: Performed By: #### C BC ####[facility] Cxhicgjqmf18[address] [place], [place] [address]Dr. Airam Tripathi MONO # 0.5 103/ul Normal 0.3-0.8 [facility] Comment on above: Performed By: #### C BC ####[facility] Nufibignth149[address] [place], [place] [address]Dr. Airam Tripathi Monocytes/100 WBC (Bld) 5.4 % Normal 1.7-12.0 [facility] Comment on above: Performed By: #### C BC ####[facility] Wpssmzklwe466[address] [place], [place] [address]Dr. Airam Tripathi NEUT # 6.5 103/ul Normal 1.4-6.5 [facility] Comment on above: Performed By: #### C BC ####[facility] [address] [place] [address]DrKianna Tripathi Neutrophils/100 WBC (Bld) 76.3 % Critically high 43.0-75.0 [facility] Comment on above: Performed By: #### C BC ####[facility] [address] [place] [address]DrKianna Tripathi Platelet mean volume (Bld) [Entitic vol] 10.1 fL Normal 9.5-13.5 [facility] Comment on above: Performed By: #### C BC ####[facility] Pgnfpvbpqm65[address] [place], [place] [address]DrKianna Tripathi PLT 284 103/ul Normal 150-450 [facility] Comment on above: Performed By: #### C BC ####[facility] Bnfzzdpgsq[address] [place], [place] [address]DrKianna Tripathi RBC 3.30 106/ul Critically low 4.20-5.40 [facility] Comment on above: Performed By: #### C BC ####[facility] Cttqqhsukc058[address] [place], [place] [address]DrKianna Tripathi WBC 8.5 103/ul Normal 4.0-11.0 [facility] Comment on above: Performed By: #### C BC ####[facility] Lgqoxdkuob107[address] [place], [place] [address]DrKianna Tripathi PROF 14(COMP METB)on 022 Albumin [Mass/Vol] 3.1 g/dL Critically low 3.4-5.0 [facility] Comment on above: Performed By: #### C MP ####[facility] Ztubbgfeuf106[address] [place], [place] [address]DrKianna Tripathi Albumin/Globulin [Mass ratio] 0.9 {ratio} Normal [facility] Comment on above: Performed By: #### C MP ####[facility] Fxszontuoo936[address] [place], [place] [address]DrKianna Tripathi ALP [Catalytic activity/Vol] 162 U/L Critically high 46-116 [facility] Comment on above: Performed By: #### C MP ####[facility] [address]xuf[address] [place] [address]Dr. Airam Tripathi ALT [Catalytic activity/Vol] 22 U/L Normal 14-59 [facility] Comment on above: Performed By: #### C MP ####[facility] Derlihghex[address] [place], [place] [address]Dr. Airam Tripathi Anion gap [Moles/Vol] 9.4 mmol/L Normal [facility] Comment on above: Performed By: #### C MP ####[facility] Oigicdpgks[address] [place], [place] [address]Dr. Airam Tripathi AST [Catalytic activity/Vol] 26 U/L Normal 15-37 [facility] Comment on above: Performed By: #### C MP ####[facility] Dsezujwnfi3537[address] [place], [place] [address]Dr. Airam Tripathi Bilirubin [Mass/Vol] 0.2 mg/dL Normal 0.2-1.0 [facility] Comment on above: Performed By: #### C MP ####[facility] Wphfqkiktp306[address] [place], [place] [address]Dr. Airam Tripathi Calcium [Mass/Vol] 8.2 mg/dL Critically low 8.5-10.1 [facility] Comment on above: Performed By: #### C MP ####[facility] Tbuyveyxls490[address] [place], [place] [address]Dr. Airam Tripathi Chloride [Moles/Vol] 103 mmol/L Normal 98-107 [facility] Comment on above: Performed By: #### C MP ####[facility] Gnnxrzwmzr010[address] [place], [place] [address]Dr. Airam Tripathi CO2 [Moles/Vol] 24.8 mmol/L Normal 21.0-32.0 [facility] Comment on above: Performed By: #### C MP ####[facility] Udwfwkrajo057[address] [place], [place] [address]Dr. Airam Deuce Creatinine [Mass/Vol] 1.19 mg/dL Critically high 0.55-1.02 [facility] Comment on above: Performed By: #### C MP ####[facility] [address] [place] [address]Dr. Airam Tripathi EGFR-AF GUAMANIAN 56 mL/min/1.73m2 Critically low >=60 [facility] Comment on above: Performed By: #### C MP ####[facility] [address]xawkr[address] [place] [address]Dr. Airam Tripathi EGFR-NON AF GUAMANIAN 46 mL/min/1.73m2 Critically low >=60 [facility] Comment on above: Performed By: #### C MP ####[facility] Xoowepsnhs[address] [place], [place] [address]Dr. Airam Tripathi Globulin (S) [Mass/Vol] 3.6 g/dL Normal [facility] Comment on above: Performed By: #### C MP ####[facility] Nfwktptvqz924[address] [place], [place] [address]Dr. Airam Tripathi Glucose [Mass/Vol] 75 mg/dL Normal 74-106 [facility] Comment on above: Performed By: #### C MP ####[facility] Otcpudvnqr296[address] [place], [place] [address]Dr. Airam Tripathi Potassium [Moles/Vol] 5.2 mmol/L Critically high 3.5-5.1 [facility] Comment on above: Performed By: #### C MP ####[facility] Udqzejfboj264[address] [place], [place] [address]Dr. Airam Tripathi Protein [Mass/Vol] 6.7 g/dL Normal 6.4-8.2 [facility] Comment on above: Performed By: #### C MP ####[facility] Wnjhmgrcxp984[address] [place], [place] [address]Dr. Airam Tripathi Sodium [Moles/Vol] 132 mmol/L Critically low 136-145 Th [facility] Comment on above: Performed By: #### C MP ####[facility] Bhbdzwoqpf2829[address] [place], [place] [address]Dr. Airam Tripathi Urea nitrogen [Mass/Vol] 28.0 mg/dL Critically high 7.0-18.0 [facility] Comment on above: Performed By: #### C MP ####[facility] Ilazvmseld[address] [place], [place] [address]DrKianna Tripathi Urea nitrogen/Creatinine [Mass ratio] 23.5 mg/mg Normal [facility] Comment on above: Performed By: #### C MP ####[facility] Zlteampwff317[address] [place], [place] [address]DrKianna Tripathi OSMOLALITYon 05-16-2022 Osmolality [Osmolality] 281 mosm/kg Normal 275-295 [facility] Comment on above: Performed By: #### O SMO ####[facility] Dgqjplbvmw[address] [place], [place] [address]DrKianna Tripathi CBC AUTO DIFFon 05-13-2022 BASO # 0.1 103/ul Normal 0.0-0.1 [facility] Comment on above: Performed By: #### C BC ####[facility] Wupdbetqga726[address] [place], [place] [address]DrKianna Tripathi Basophils/100 WBC (Bld) 0.5 % Normal 0.2-2.0 [facility] Comment on above: Performed By: #### C BC ####[facility] Kdboydwplt529[address] [place], [place] [address]DrKianna Tripathi EO # 0.2 103/ul Normal 0.0-0.7 [facility] Comment on above: Performed By: #### C BC ####[facility] Owlnhmauak86[address] [place], [place] [address]DrKianna Tripathi Eosinophils/100 WBC (Bld) 2.1 % Normal 0.9-7.0 [facility] Comment on above: Performed By: #### C BC ####[facility] Uwgutncnpf816[address] [place], [place] [address]DrKianna Tripathi Erythrocyte distribution width (RBC) [Ratio] 12.9 % Normal 11.0-15.0 [facility] Comment on above: Performed By: #### C BC ####[facility] Yoofuqlggq543[address] [place], [place] [address]DrKianna Tripathi Hematocrit (Bld) [Volume fraction] 31.9 % Critically low 36.0-48.0 [facility] Comment on above: Performed By: #### C BC ####[facility] [address] [place] [address]DrKianna Selenaneil Tripathi Hemoglobin (Bld) [Mass/Vol] 9.7 g/dL Critically low 12.0-16.0 [facility] Comment on above: Performed By: #### C BC ####[facility] Bxbngslsok65[address] [place], [place] [address]DrKianna Tripathi IG # 0.06 10e3/ul Critically high 0.00-0.03 [facility] Comment on above: Performed By: #### C BC ####[facility] Yodkjdombe767[address] [place], [place] [address]DrKianna Tripathi IG % 0.7 % Critically high 0.0-0.5 [facility] Comment on above: Performed By: #### C BC ####[facility] Udiztrxrvp050[address] [place], [place] [address]DrKianna Tripathi LYMPH # 1.9 103/ul Normal 1.2-3.8 [facility] Comment on above: Performed By: #### C BC ####[facility] Peyoktsrak254[address] [place], [place] [address]DrKianna Tripathi Lymphocytes/100 WBC (Bld) 21.1 % Normal 20.5-60.0 [facility] Comment on above: Performed By: #### C BC ####[facility] Sgrorydlgi[address] [place], [place] [address]DrKianna Tripathi MANUAL DIFF REQ NO Normal [facility] Comment on above: Performed By: #### C BC ####[facility] Tuhmmyfizk120[address] [place], [place] [address]DrKianna Tripathi MCH (RBC) [Entitic mass] 29.7 pg Normal 26.7-34.0 [facility] Comment on above: Performed By: #### C BC ####[facility] Npdxzmyrmk[address] [place], [place] [address]DrKianna Tripathi MCHC (RBC) [Mass/Vol] 30.4 g/dL Normal 29.9-35.2 [facility] Comment on above: Performed By: #### C BC ####[facility] X[address]cczcpeg[address] [place] [address]DrKianna Airam Deuce MCV (RBC) [Entitic vol] 97.6 fL Normal 81.0-99.0 [facility] Comment on above: Performed By: #### C BC ####[facility] Zlsumxvqrs566[address] [place], [place] [address]DrKianna Tripathi MONO # 0.6 103/ul Normal 0.3-0.8 [facility] Comment on above: Performed By: #### C BC ####[facility] Gfsqmksiqd267[address] [place], [place] [address]DrKianna Tripathi Monocytes/100 WBC (Bld) 6.8 % Normal 1.7-12.0 [facility] Comment on above: Performed By: #### C BC ####[facility] Kpjioizxrz[address] [place], [place] [address]DrKianna Tripathi NEUT # 6.3 103/ul Normal 1.4-6.5 [facility] Comment on above: Performed By: #### C BC ####[facility] Yoszdgzsxv347[address] [place], [place] [address]DrKianna Tripathi Neutrophils/100 WBC (Bld) 68.8 % Normal 43.0-75.0 [facility] Comment on above: Performed By: #### C BC ####[facility] Rejfsqvggy953[address] [place], [place] [address]DrKianna Tripathi Platelet mean volume (Bld) [Entitic vol] 9.6 fL Normal 9.5-13.5 [facility] Comment on above: Performed By: #### C BC ####[facility] Dboutshnsy6412[address] [place], [place] [address]DrKianna Tripathi PLT 295 103/ul Normal 150-450 [facility] Comment on above: Performed By: #### C BC ####[facility] Lxodxkglac570[address] [place], [place] [address]Dr. Airam Tripathi RBC 3.27 106/ul Critically low 4.20-5.40 [facility] Comment on above: Performed By: #### C BC ####[facility] Ldmgidgmte708[address] [place], [place] [address]Dr. Airam Tripathi WBC 9.1 103/ul Normal 4.0-11.0 [facility] Comment on above: Performed By: #### C BC ####[facility] Rcnnyilxny[address] [place], [place] [address]Dr. Airam Tripathi PROF 14(COMP METB)on 022 Albumin [Mass/Vol] 3.3 g/dL Critically low 3.4-5.0 [facility] Comment on above: Performed By: #### C MP ####[facility] Jdbbqqzqgw422[address] [place], [place] [address]Dr. Airam Tripathi Albumin/Globulin [Mass ratio] 1.0 {ratio} Normal [facility] Comment on above: Performed By: #### C MP ####[facility] Sdhynuuwgj84[address] [place], [place] [address]Dr. Airam Tripathi ALP [Catalytic activity/Vol] 152 U/L Critically high 46-116 [facility] Comment on above: Performed By: #### C MP ####[facility] Szsfkukwzq335[address] [place], [place] [address]Dr. Airam Tripathi ALT [Catalytic activity/Vol] 23 U/L Normal 14-59 [facility] Comment on above: Performed By: #### C MP ####[facility] Ecztrqiyzz73[address] [place], [place] [address]Dr. Airam Tripathi Anion gap [Moles/Vol] 12.0 mmol/L Normal [facility] Comment on above: Performed By: #### C MP ####[facility] Mshuejxbef590[address] [place], [place] [address]Dr. Airam Tripathi AST [Catalytic activity/Vol] 25 U/L Normal 15-37 [facility] Comment on above: Performed By: #### C MP ####[facility] Frlztnoolq3769[address] [place], [place] [address]Dr. Airam Tripathi Bilirubin [Mass/Vol] 0.2 mg/dL Normal 0.2-1.0 [facility] Comment on above: Performed By: #### C MP ####[facility] Ebxptcynje103[address] [place], [place] [address]Dr. Airam Tripathi Calcium [Mass/Vol] 8.2 mg/dL Critically low 8.5-10.1 [facility] Comment on above: Performed By: #### C MP ####[facility] Jrjnllwtou48280[address] [place], [place] [address]Dr. Airam Tripathi Chloride [Moles/Vol] 100 mmol/L Normal 98-107 [facility] Comment on above: Performed By: #### C MP ####[facility] Fkwswgncgl308[address] [place], [place] [address]Dr. Airam Tripathi CO2 [Moles/Vol] 24.8 mmol/L Normal 21.0-32.0 [facility] Comment on above: Performed By: #### C MP ####[facility] Mjjavohxsc[address] [place], [place] [address]Dr. Airam Tripathi Creatinine [Mass/Vol] 1.46 mg/dL Critically high 0.55-1.02 [facility] Comment on above: Performed By: #### C MP ####[facility] Cxznkgrhzi939[address] [place], [place] [address]Dr. Airam Tripathi EGFR-AF GUAMANIAN 44 mL/min/1.73m2 Critically low >=60 [facility] Comment on above: Performed By: #### C MP ####[facility] Mejsnbmnca793[address] [place], [place] [address]Dr. Airam Tripathi EGFR-NON AF GUAMANIAN 37 mL/min/1.73m2 Critically low >=60 [facility] Comment on above: Performed By: #### C MP ####[facility] Fotebktpbc913[address] [place], [place] [address]Dr. Airam Tripathi Globulin (S) [Mass/Vol] 3.3 g/dL Normal [facility] Comment on above: Performed By: #### C MP ####[facility] Objcuskgsg913[address] [place], [place] [address]Dr. Airam Tripathi Glucose [Mass/Vol] 86 mg/dL Normal 74-106 [facility] Comment on above: Performed By: #### C MP ####[facility] [address] [place] [address]Dr. Airam Tripathi Potassium [Moles/Vol] 4.8 mmol/L Normal 3.5-5.1 [facility] Comment on above: Performed By: #### C MP ####[facility] Gyfekdpwaa7639[address] [place], [place] [address]Dr. Airam Tripathi Protein [Mass/Vol] 6.6 g/dL Normal 6.4-8.2 [facility] Comment on above: Performed By: #### C MP ####[facility] Hhyyvussuo165[address] [place], [place] [address]Dr. Airam Tripathi Sodium [Moles/Vol] 132 mmol/L Critically low 136-145 Th [facility] Comment on above: Performed By: #### C MP ####[facility] Xdnugjwjjp825[address] [place], [place] [address]Dr. Airam Deuce Urea nitrogen [Mass/Vol] 34.0 mg/dL Critically high 7.0-18.0 [facility] Comment on above: Performed By: #### C MP ####[facility] Swqmkdlbjn68[address] [place], [place] [address]Dr. Airam Tripathi Urea nitrogen/Creatinine [Mass ratio] 23.3 mg/mg Normal [facility] Comment on above: Performed By: #### C MP ####[facility] Mllatiqchv[address] [place], [place] [address]Dr. Selenaneil Deuce OSMOLALITYon 05-06-2022 Osmolality [Osmolality] 284 mosm/kg Normal 275-295 [facility] Comment on above: Performed By: #### O SMO ####[facility] Ufyjwgbzqd[address] [place], [place] [address]Dr. Selenaneil Deuce XR LSPINE MIN 4 VIEWSon 11-0 XR LSPINE MIN 4 VIEWS Normal [facility] CBC AUTO DIFFon 05-03-2022 BASO # 0.1 103/ul Normal 0.0-0.1 [facility] Comment on above: Performed By: #### C BC ####[facility] [address] [place] [id number]. Airam Tripathi Basophils/100 WBC (Bld) 0.6 % Normal 0.2-2.0 [facility] Comment on above: Performed By: #### C BC ####[facility] Xhtroooov[address] [place], [place] [id number]. Airam Tripathi EO # 0.3 103/ul Normal 0.0-0.7 [facility] Comment on above: Performed By: #### C BC ####[facility] Bssveeybpv365[address] [place], [place] [address]Dr. Airam Tripathi Eosinophils/100 WBC (Bld) 4.2 % Normal 0.9-7.0 [facility] Comment on above: Performed By: #### C BC ####[facility] Lsdtzhvcxy[address] [place], [place] [address]Dr. Airam Tripathi Erythrocyte distribution width (RBC) [Ratio] 13.4 % Normal 11.0-15.0 [facility] Comment on above: Performed By: #### C BC ####[facility] Qguxvtmhey108[address] [place], [place] [address]Dr. Airam Tripathi Hematocrit (Bld) [Volume fraction] 30.7 % Critically low 36.0-48.0 [facility] Comment on above: Performed By: #### C BC ####[facility] Mxmdtrfbiv[address] [place], [place] [address]Dr. Airam Tripathi Hemoglobin (Bld) [Mass/Vol] 9.6 g/dL Critically low 12.0-16.0 [facility] Comment on above: Performed By: #### C BC ####[facility] [address]zhsytfl7[address] [place], [place] [address]Dr. Airam Tripathi IG # 0.05 10e3/ul Critically high 0.00-0.03 [facility] Comment on above: Performed By: #### C BC ####[facility] Vjxcqcznmt[address] [place], [place] [address]Dr. Airam Tripathi IG % 0.6 % Critically high 0.0-0.5 [facility] Comment on above: Performed By: #### C BC ####[facility] Axhvlhywov[address] [place] [id number]. Airam Tripathi LYMPH # 1.9 103/ul Normal 1.2-3.8 [facility] Comment on above: Performed By: #### C BC ####[facility] Vrbwsvsopp9309 [place] [phone]. Airam Tripathi Lymphocytes/100 WBC (Bld) 23.5 % Normal 20.5-60.0 [facility] Comment on above: Performed By: #### C BC ####[facility] Oudqcozcoz[address] [place], [place] [address]Dr. Airam Tripathi MANUAL DIFF REQ NO Normal [facility] Comment on above: Performed By: #### C BC ####[facility] Nqnjncdayo26[address] [place], [place] [address]Dr. Airam Tripathi MCH (RBC) [Entitic mass] 30.8 pg Normal 26.7-34.0 [facility] Comment on above: Performed By: #### C BC ####[facility] Jtqagkwehc[address] [place], [place] [address]Dr. Airam Tripathi MCHC (RBC) [Mass/Vol] 31.3 g/dL Normal 29.9-35.2 [facility] Comment on above: Performed By: #### C BC ####[facility] Ffhtwlusxi34[address] [place], [place] [address]Dr. Aiarm Tripathi MCV (RBC) [Entitic vol] 98.4 fL Normal 81.0-99.0 [facility] Comment on above: Performed By: #### C BC ####[facility] Layssknmth[address] [place], [place] [address]Dr. Airam Tripathi MONO # 0.6 103/ul Normal 0.3-0.8 [facility] Comment on above: Performed By: #### C BC ####[facility] Ghgrpgigcr[address] [place], [place] [id number]. Airam Tripathi Monocytes/100 WBC (Bld) 7.4 % Normal 1.7-12.0 [facility] Comment on above: Performed By: #### C BC ####[facility] Sfycfnrulr4574 [place] [phone]. Airam Tripathi NEUT # 5.0 103/ul Normal 1.4-6.5 [facility] Comment on above: Performed By: #### C BC ####[facility] Ghpaumlarj2583 [place] [phone]. Airam Tripathi Neutrophils/100 WBC (Bld) 63.7 % Normal 43.0-75.0 [facility] Comment on above: Performed By: #### C BC ####[facility] Hqrkbrmsro2[address] [place] [address]Dr. Airam Tripathi Platelet mean volume (Bld) [Entitic vol] 9.5 fL Normal 9.5-13.5 [facility] Comment on above: Performed By: #### C BC ####[facility] Sgdxeskwop9[address] [place], [place] [address]Dr. Airam Tripathi PLT 280 103/ul Normal 150-450 [facility] Comment on above: Performed By: #### C BC ####[facility] Xbrbsmvjnw7647 [place] [address]Dr. Airam Tripathi RBC 3.12 106/ul Critically low 4.20-5.40 [facility] Comment on above: Performed By: #### C BC ####[facility] Bfdrjehyvj64[address] [place] [address]Dr. Airam Tripathi WBC 7.9 103/ul Normal 4.0-11.0 [facility] Comment on above: Performed By: #### C BC ####[facility] Myafwuuoxo75[address] [place] [address]Dr. Airam Tripathi PROF 14(COMP METB)on 022 Albumin [Mass/Vol] 3.1 g/dL Critically low 3.4-5.0 [facility] Comment on above: Performed By: #### C MP ####[facility] Nbmwdgfeoj3949 [place] [address]Dr. Airam Tripathi Albumin/Globulin [Mass ratio] 0.9 {ratio} Normal [facility] Comment on above: Performed By: #### C MP ####[facility] Tpzfnqzfqg8[address] [place] [address]Dr. Airam Tripathi ALP [Catalytic activity/Vol] 140 U/L Critically high 46-116 [facility] Comment on above: Performed By: #### C MP ####[facility] Yawigcimjc2963 [place] [address]Dr. Airam Tripathi ALT [Catalytic activity/Vol] 24 U/L Normal 14-59 [facility] Comment on above: Performed By: #### C MP ####[facility] Rbdtrzgpwa1039 [place] [address]Dr. Airam Tripathi Anion gap [Moles/Vol] 11.2 mmol/L Normal [facility] Comment on above: Performed By: #### C MP ####[facility] Prohdofkhp[address] [place], [place] [address]Dr. Airam Tripathi AST [Catalytic activity/Vol] 26 U/L Normal 15-37 [facility] Comment on above: Performed By: #### C MP ####[facility] Aikwkswghf[address] [place], [place] [address]Dr. Airam Tripathi Bilirubin [Mass/Vol] 0.2 mg/dL Normal 0.2-1.0 [facility] Comment on above: Performed By: #### C MP ####[facility] Vfrkkdzabg6[address] [place], [place] [address]Dr. Airam Tripathi Calcium [Mass/Vol] 8.3 mg/dL Critically low 8.5-10.1 [facility] Comment on above: Performed By: #### C MP ####[facility] Srqbxarvye88[address] [place], [place] [address]Dr. Airam Tripathi Chloride [Moles/Vol] 101 mmol/L Normal 98-107 [facility] Comment on above: Performed By: #### C MP ####[facility] Dgimqlpcpf55[address] [place], [place] [address]Dr. Airam Tripathi CO2 [Moles/Vol] 25.5 mmol/L Normal 21.0-32.0 [facility] Comment on above: Performed By: #### C MP ####[facility] Tdythailzp6142 [place] [address]Dr. Airam Tripathi Creatinine [Mass/Vol] 1.43 mg/dL Critically high 0.55-1.02 [facility] Comment on above: Performed By: #### C MP ####[facility] Jeoopkrifj8817 [place] [address]Dr. Airam Tripathi EGFR-AF GUAMANIAN 45 mL/min/1.73m2 Critically low >=60 [facility] Comment on above: Performed By: #### C MP ####[facility] Nmjwrvtgip0051 [place] [address]Dr. Airam Tripathi EGFR-NON AF GUAMANIAN 37 mL/min/1.73m2 Critically low >=60 [facility] Comment on above: Performed By: #### C MP ####[facility] Wecyoslnhn[address] [place], [place] [address]Dr. Airam Deuce Globulin (S) [Mass/Vol] 3.3 g/dL Normal [facility] Comment on above: Performed By: #### C MP ####[facility] Rsxdaajmwn1072 [place] [address]Dr. Airam Tripathi Glucose [Mass/Vol] 74 mg/dL Normal 74-106 [facility] Comment on above: Performed By: #### C MP ####[facility] Abnulwihmz[address] [place], [place] [address]Dr. Airam Tripathi Potassium [Moles/Vol] 4.7 mmol/L Normal 3.5-5.1 [facility] Comment on above: Performed By: #### C MP ####[facility] Vmgfumtsba524[address] [place], [place] [address]Dr. Airam Tripathi Protein [Mass/Vol] 6.4 g/dL Normal 6.4-8.2 [facility] Comment on above: Performed By: #### C MP ####[facility] Jmmatdhrdh[address] [place], [place] [address]Dr. Airam Tripathi Sodium [Moles/Vol] 133 mmol/L Critically low 136-145 [facility] Comment on above: Performed By: #### C MP ####[facility] Pgyotgvzrc3008 [place] [phone]. Airam Tripathi Urea nitrogen [Mass/Vol] 38.0 mg/dL Critically high 7.0-18.0 [facility] Comment on above: Performed By: #### C MP ####[facility] Mimhbxfdfh336[address] [place], [place] [address]Dr. Airam Tripathi Urea nitrogen/Creatinine [Mass ratio] 26.6 mg/mg Normal [facility] Comment on above: Performed By: #### C MP ####[facility] Cxggrhlffc474[address] [place], [place] [address]Dr. Airam Tripathi OSMOLALITYon 04-29-2022 Osmolality [Osmolality] 292 mosm/kg Normal 275-295 [facility] Comment on above: Performed By: #### O SMO ####[facility] Mnybhhykro[address] [place], [place] [address]Dr. Airam Tripathi CBC AUTO DIFFon 04-28-2022 BASO # 0.0 103/ul Normal 0.0-0.1 [facility] Comment on above: Performed By: #### C BC ####[facility] Kvmedvueda[address] [place], [place] [address]Dr. Airam Tripathi Basophils/100 WBC (Bld) 0.5 % Normal 0.2-2.0 [facility] Comment on above: Performed By: #### C BC ####[facility] Zsogpqlckf054[address] [place], [place] [address]Dr. Airam Tripathi EO # 0.2 103/ul Normal 0.0-0.7 [facility] Comment on above: Performed By: #### C BC ####[facility] Veuxvgzlbo133[address] [place], [place] [address]Dr. Airam Tripathi Eosinophils/100 WBC (Bld) 3.4 % Normal 0.9-7.0 [facility] Comment on above: Performed By: #### C BC ####[facility] Ebelfyypna695[address] [place], [place] [address]Dr. Airam Tripathi Erythrocyte distribution width (RBC) [Ratio] 13.4 % Normal 11.0-15.0 [facility] Comment on above: Performed By: #### C BC ####[facility] Exedvfqnly01[address] [place] [address]Dr. Airam Tripathi Hematocrit (Bld) [Volume fraction] 31.6 % Critically low 36.0-48.0 [facility] Comment on above: Performed By: #### C BC ####[facility] Hrdsevxdpw2730 [place] [address]DrKianna Airam Deuce Hemoglobin (Bld) [Mass/Vol] 9.8 g/dL Critically low 12.0-16.0 [facility] Comment on above: Performed By: #### C BC ####[facility] Abzlvfsgtv[address] [place], [place] [address]Dr. Airam Tripathi IG # 0.02 10e3/ul Normal 0.00-0.03 [facility] Comment on above: Performed By: #### C BC ####[facility] Etclkpvoxz27[address] [place], [place] [address]Dr. Airam Tripathi IG % 0.3 % Normal 0.0-0.5 [facility] Comment on above: Performed By: #### C BC ####[facility] Rehwxhwbds[address] [place], [place] [address]DrKianna Selenaneil Tripathi LYMPH # 1.3 103/ul Normal 1.2-3.8 [facility] Comment on above: Performed By: #### C BC ####[facility] Spdteoagqo412[address] [place], [place] [address]DrKianna Tripathi Lymphocytes/100 WBC (Bld) 21.7 % Normal 20.5-60.0 [facility] Comment on above: Performed By: #### C BC ####[facility] Rweicdrgld[address] [place], [place] [address]DrKianna Selenaneil Tripathi MANUAL DIFF REQ NO Normal [facility] Comment on above: Performed By: #### C BC ####[facility] Vvpvgmfqyh344[address] [place], [place] [address]DrKianna Tripathi MCH (RBC) [Entitic mass] 30.7 pg Normal 26.7-34.0 [facility] Comment on above: Performed By: #### C BC ####[facility] Fzpbhmtdhf6260 [place] [phone]. Airam Deuce MCHC (RBC) [Mass/Vol] 31.0 g/dL Normal 29.9-35.2 [facility] Comment on above: Performed By: #### C BC ####[facility] Ihtfcufjxy5294 [place] [phone] Tripathi MCV (RBC) [Entitic vol] 99.1 fL Critically high 81.0-99.0 [facility] Comment on above: Performed By: #### C BC ####[facility] Erqhnyxdjz059[address] [place], [place] [address]DrKianna Tripathi MONO # 0.3 103/ul Normal 0.3-0.8 [facility] Comment on above: Performed By: #### C BC ####[facility] Znjmmzkkll607[address] [place], [place] [address]DrKianna Tripathi Monocytes/100 WBC (Bld) 5.2 % Normal 1.7-12.0 [facility] Comment on above: Performed By: #### C BC ####[facility] Ukcfvkauhx[address] [place], [place] [address]DrKianna Tripathi NEUT # 4.1 103/ul Normal 1.4-6.5 [facility] Comment on above: Performed By: #### C BC ####[facility] Aavdezdzqt99[address] [place], [place] [id number] Tripathi Neutrophils/100 WBC (Bld) 68.9 % Normal 43.0-75.0 [facility] Comment on above: Performed By: #### C BC ####[facility] Lntatnwimg[address] [place], [place] [phone] Tripathi Platelet mean volume (Bld) [Entitic vol] 9.8 fL Normal 9.5-13.5 [facility] Comment on above: Performed By: #### C BC ####[facility] Mccagungnf8[address] [place], [place] [phone] Tripathi PLT 329 103/ul Normal 150-450 [facility] Comment on above: Performed By: #### C BC ####[facility] Dtmfzhqkxo0878 [place] [phone]. Airam Tripathi RBC 3.19 106/ul Critically low 4.20-5.40 [facility] Comment on above: Performed By: #### C BC ####[facility] Shkdyapibj5252 [place] [phone]. Airam Tripathi WBC 5.9 103/ul Normal 4.0-11.0 [facility] Comment on above: Performed By: #### C BC ####[facility] Cibtwjoxou5570 [place] [address]Dr. Airam Tripathi PROF 14(COMP METB)on 022 Albumin [Mass/Vol] 2.9 g/dL Critically low 3.4-5.0 [facility] Comment on above: Performed By: #### C MP ####[facility] Pcjdwilobc[address] [place], [place] [address]Dr. Airam Tripathi Albumin/Globulin [Mass ratio] 0.9 {ratio} Normal [facility] Comment on above: Performed By: #### C MP ####[facility] Zgncsuykfv278[address] [place], [place] [address]Dr. Airam Tripathi ALP [Catalytic activity/Vol] 127 U/L Critically high 46-116 [facility] Comment on above: Performed By: #### C MP ####[facility] Ivyvcuvlrp9168 [place] [address]Dr. Airam Tripathi ALT [Catalytic activity/Vol] 22 U/L Normal 14-59 [facility] Comment on above: Performed By: #### C MP ####[facility] Pcelulckok[address] [place], [place] [address]Dr. Airam Tripathi Anion gap [Moles/Vol] 6.7 mmol/L Normal [facility] Comment on above: Performed By: #### C MP ####[facility] Hhatvbpipf009[address] [place], [place] [address]Dr. Airam Tripathi AST [Catalytic activity/Vol] 24 U/L Normal 15-37 [facility] Comment on above: Performed By: #### C MP ####[facility] Qgmgyjgwws7498 [place] [address]Dr. Airam Tripathi Bilirubin [Mass/Vol] 0.2 mg/dL Normal 0.2-1.0 [facility] Comment on above: Performed By: #### C MP ####[facility] Guavsemnul[address] [place] [phone]. Airam Tripathi Calcium [Mass/Vol] 8.2 mg/dL Critically low 8.5-10.1 [facility] Comment on above: Performed By: #### C MP ####[facility] Mcuqtuuuaw438[address] [place], [place] [address]Dr. Airam Tripathi Chloride [Moles/Vol] 105 mmol/L Normal 98-107 [facility] Comment on above: Performed By: #### C MP ####[facility] Kkptxdyysq075[address] [place], [place] [address]Dr. Airam Tripathi CO2 [Moles/Vol] 28.2 mmol/L Normal 21.0-32.0 [facility] Comment on above: Performed By: #### C MP ####[facility] Qpotgtlfbt3312[address] [place], [place] [address]Dr. Airam Tripathi Creatinine [Mass/Vol] 1.22 mg/dL Critically high 0.55-1.02 [facility] Comment on above: Performed By: #### C MP ####[facility] Kcymlzimmw288[address] [place], [place] [address]Dr. Airam Tripathi EGFR-AF GUAMANIAN 54 mL/min/1.73m2 Critically low >=60 [facility] Comment on above: Performed By: #### C MP ####[facility] Ceyelvqxjq[address] [place], [place] [address]Dr. Airam Tripathi EGFR-NON AF GUAMANIAN 45 mL/min/1.73m2 Critically low >=60 [facility] Comment on above: Performed By: #### C MP ####[facility] Sidazzvyrw232[address] [place], [place] [address]Dr. Airam Tripathi Globulin (S) [Mass/Vol] 3.2 g/dL Normal [facility] Comment on above: Performed By: #### C MP ####[facility] Inqqnooaxx4502 [place] [address]Dr. Airam Tripathi Glucose [Mass/Vol] 77 mg/dL Normal 74-106 [facility] Comment on above: Performed By: #### C MP ####[facility] Zqgtrzynqg2448 [place] [address]Dr. Airam Tripathi Potassium [Moles/Vol] 4.9 mmol/L Normal 3.5-5.1 [facility] Comment on above: Performed By: #### C MP ####[facility] Vktzkhamkw3875 [place] [address]Dr. Airam Tripathi Protein [Mass/Vol] 6.1 g/dL Critically low 6.4-8.2 [facility] Comment on above: Performed By: #### C MP ####[facility] Ipetfauzbd449[address] [place], [place] [address]Dr. Airam Tripathi Sodium [Moles/Vol] 135 mmol/L Critically low 136-145 [facility] Comment on above: Performed By: #### C MP ####[facility] Wbngrgjeul306[address] [place], [place] [address]Dr. Airam Tripathi Urea nitrogen [Mass/Vol] 30.0 mg/dL Critically high 7.0-18.0 [facility] Comment on above: Performed By: #### C MP ####[facility] Bshudazxth160[address] [place], [place] [address]Dr. Airam Tripathi Urea nitrogen/Creatinine [Mass ratio] 24.6 mg/mg Normal [facility] Comment on above: Performed By: #### C MP ####[facility] Ctuchvqjjr[address] [place], [place] [address]Dr. Airam Tripathi OSMOLALITYon 04-23-2022 Osmolality [Osmolality] 289 mosm/kg Normal 275-295 [facility] Comment on above: Performed By: #### O SMO ####[facility] Cejhzcpaww89[address] [place], [place] [address]Dr. Airam Tripathi CBC AUTO DIFFon 04-20-2022 BASO # 0.0 103/ul Normal 0.0-0.1 [facility] Comment on above: Performed By: #### C BC ####[facility] Rtirsjxvjm9143 [place] [address]Dr. Airam Tripathi Basophils/100 WBC (Bld) 0.4 % Normal 0.2-2.0 [facility] Comment on above: Performed By: #### C BC ####[facility] Hzqdqqwmgm398[address] [place], [place] [address]Dr. Airam Tripathi EO # 0.2 103/ul Normal 0.0-0.7 [facility] Comment on above: Performed By: #### C BC ####[facility] Mpjuohjuit668[address] [place], [place] [address]Dr. Airam Tripathi Eosinophils/100 WBC (Bld) 3.1 % Normal 0.9-7.0 [facility] Comment on above: Performed By: #### C BC ####[facility] Zgbfmwnbcw609[address] [place], [place] [address]Dr. Airam Tripathi Erythrocyte distribution width (RBC) [Ratio] 13.8 % Normal 11.0-15.0 [facility] Comment on above: Performed By: #### C BC ####[facility] Jofgnrfgxt044[address] [place], [place] [address]Dr. Airam Tripathi Hematocrit (Bld) [Volume fraction] 29.5 % Critically low 36.0-48.0 [facility] Comment on above: Performed By: #### C BC ####[facility] Mnvvgcmzth128[address] [place], [place] [address]Dr. Airam Tripathi Hemoglobin (Bld) [Mass/Vol] 9.2 g/dL Critically low 12.0-16.0 [facility] Comment on above: Performed By: #### C BC ####[facility] Pryaycepbg077[address] [place], [place] [address]Dr. Airam Tripathi IG # 0.02 10e3/ul Normal 0.00-0.03 [facility] Comment on above: Performed By: #### C BC ####[facility] Skalmyfqos[address] [place], [place] [address]Dr. Airam Tripathi IG % 0.4 % Normal 0.0-0.5 [facility] Comment on above: Performed By: #### C BC ####[facility] Xejdkhiati7141 [place] [address]Dr. Airam Deuce LYMPH # 0.8 103/ul Critically low 1.2-3.8 [facility] Comment on above: Performed By: #### C BC ####[facility] Ocsygrnlgk1890 [place] [address]Dr. Airam Tripathi Lymphocytes/100 WBC (Bld) 14.0 % Critically low 20.5-60.0 [facility] Comment on above: Performed By: #### C BC ####[facility] Qsbreslfyg[address] [place], [place] [address]Dr. Airam Tripathi MANUAL DIFF REQ NO Normal [facility] Comment on above: Performed By: #### C BC ####[facility] Lidmnoungz048[address] [place], [place] [address]Dr. Airam Tripathi MCH (RBC) [Entitic mass] 30.4 pg Normal 26.7-34.0 [facility] Comment on above: Performed By: #### C BC ####[facility] Bcmngsufzd985[address] [place], [place] [address]Dr. Selenaneil Tripathi MCHC (RBC) [Mass/Vol] 31.2 g/dL Normal 29.9-35.2 [facility] Comment on above: Performed By: #### C BC ####[facility] Jllvllbypx[address] [place], [place] [address]Dr. Airam Tripathi MCV (RBC) [Entitic vol] 97.4 fL Normal 81.0-99.0 [facility] Comment on above: Performed By: #### C BC ####[facility] Ldflunkxlm64[address] [place], [place] [address]DrKianna Tripathi MONO # 0.3 103/ul Normal 0.3-0.8 [facility] Comment on above: Performed By: #### C BC ####[facility] Xpyviyknyy35[address] [place], [place] [address]Dr. Airam Tripathi Monocytes/100 WBC (Bld) 5.6 % Normal 1.7-12.0 [facility] Comment on above: Performed By: #### C BC ####[facility] Mtysduiljs1852 [place] [address]Dr. Selenaneil Tripathi NEUT # 4.2 103/ul Normal 1.4-6.5 [facility] Comment on above: Performed By: #### C BC ####[facility] Rlxcikhllz0751 [place] [address]Dr. Airam Tripathi Neutrophils/100 WBC (Bld) 76.5 % Critically high 43.0-75.0 [facility] Comment on above: Performed By: #### C BC ####[facility] Qplwsvpxse5025 [place] [address]DrKianna Tripathi Platelet mean volume (Bld) [Entitic vol] 9.4 fL Critically low 9.5-13.5 [facility] Comment on above: Performed By: #### C BC ####[facility] Ubfddlotso[address] [place], [place] [address]Dr. Airam Tripathi PLT 250 103/ul Normal 150-450 [facility] Comment on above: Performed By: #### C BC ####[facility] Fvdtttbayy[address] [place], [place] [address]Dr. Airam Tripathi RBC 3.03 106/ul Critically low 4.20-5.40 [facility] Comment on above: Performed By: #### C BC ####[facility] Rpjrqhvvuy7515 [place] [address]Dr. Airam Tripathi WBC 5.5 103/ul Normal 4.0-11.0 [facility] Comment on above: Performed By: #### C BC ####[facility] Dqqxqqmfrf8353 [place] [address]DrKianna Tripathi PROF 14(COMP METB)on 022 Albumin [Mass/Vol] 2.7 g/dL Critically low 3.4-5.0 [facility] Comment on above: Performed By: #### C MP ####[facility] Rpyfumyjch[address] [place], [place] [address]DrKianna Tripathi Albumin/Globulin [Mass ratio] 0.9 {ratio} Normal [facility] Comment on above: Performed By: #### C MP ####[facility] Miibrrutci6157 [place] [address]Dr. Airam Tripathi ALP [Catalytic activity/Vol] 113 U/L Normal 46-116 [facility] Comment on above: Performed By: #### C MP ####[facility] [address] [place] [address]Dr. Airam Deuce ALT [Catalytic activity/Vol] 20 U/L Normal 14-59 [facility] Comment on above: Performed By: #### C MP ####[facility] Nvszsbfzgf[address] [place], [place] [address]Dr. Selenaneil Deuce Anion gap [Moles/Vol] 11.1 mmol/L Normal [facility] Comment on above: Performed By: #### C MP ####[facility] Jynftjgult[address] [place], [place] [address]Dr. Airam Deuce AST [Catalytic activity/Vol] 19 U/L Normal 15-37 [facility] Comment on above: Performed By: #### C MP ####[facility] Deqpowgdwz[address] [place], [place] [address]Dr. Airam Deuce Bilirubin [Mass/Vol] 0.2 mg/dL Normal 0.2-1.0 [facility] Comment on above: Performed By: #### C MP ####[facility] Qsenprnuam48[address] [place], [place] [address]Dr. Selenaneil Deuce Calcium [Mass/Vol] 8.3 mg/dL Critically low 8.5-10.1 [facility] Comment on above: Performed By: #### C MP ####[facility] Mdwgejnupl[address] [place], [place] [address]Dr. Airam Tripathi Chloride [Moles/Vol] 104 mmol/L Normal 98-107 [facility] Comment on above: Performed By: #### C MP ####[facility] Qdduvraeoh[address] [place], [place] [address]Dr. Airam Tripathi CO2 [Moles/Vol] 25.3 mmol/L Normal 21.0-32.0 [facility] Comment on above: Performed By: #### C MP ####[facility] Lcroldsras[address] [place] [id number]. Airam Tripathi Creatinine [Mass/Vol] 1.33 mg/dL Critically high 0.55-1.02 [facility] Comment on above: Performed By: #### C MP ####[facility] Zsibxinjjy0703 [place] [id number]. Airam Deuce EGFR-AF GUAMANIAN 49 mL/min/1.73m2 Critically low >=60 [facility] Comment on above: Performed By: #### C MP ####[facility] Hyhrhizvjm89[address] [place] [phone]. Airam Deuce EGFR-NON AF GUAMANIAN 41 mL/min/1.73m2 Critically low >=60 [facility] Comment on above: Performed By: #### C MP ####[facility] Bnyhmccwwb[address] [place] [address]Dr. Airam Deuce Globulin (S) [Mass/Vol] 3.1 g/dL Normal [facility] Comment on above: Performed By: #### C MP ####[facility] Bhkyjehtlr19[address] [place] [address]Dr. Airam Deuce Glucose [Mass/Vol] 88 mg/dL Normal 74-106 [facility] Comment on above: Performed By: #### C MP ####[facility] Kftifiivoa[address] [place] [address]Dr. Airam Deuce Potassium [Moles/Vol] 5.4 mmol/L Critically high 3.5-5.1 [facility] Comment on above: Performed By: #### C MP ####[facility] Skoawyyois08[address] [place] [phone]. Airam Deuce Protein [Mass/Vol] 5.8 g/dL Critically low 6.4-8.2 Th [facility] Comment on above: Performed By: #### C MP ####[facility] Dacqqkxwme[address] [place] [phone]. Airam Tripathi Sodium [Moles/Vol] 135 mmol/L Critically low 136-145 Th e [facility] Comment on above: Performed By: #### C MP ####[facility] Uapzlaxxrf[address] [place], [place] [address]Dr. Airam Tripathi Urea nitrogen [Mass/Vol] 38.0 mg/dL Critically high 7.0-18.0 [facility] Comment on above: Performed By: #### C MP ####[facility] Krpdwvzwzc815[address] [place], [place] [address]Dr. Airam Tripathi Urea nitrogen/Creatinine [Mass ratio] 28.6 mg/mg Normal [facility] Comment on above: Performed By: #### C MP ####[facility] Isjdksthqs618[address] [place], [place] [address]Dr. Airam Deuce OSMOLALITYon 04-15-2022 Osmolality [Osmolality] 284 mosm/kg Normal 275-295 [facility] Comment on above: Performed By: #### O SMO ####[facility] Acitrixepw[address] [place], [place] [address]Dr. Airam Tripathi CBC AUTO DIFFon 04-14-2022 BASO # 0.0 103/ul Normal 0.0-0.1 [facility] Comment on above: Performed By: #### C BC ####[facility] Hnqdukzczr[address] [place], [place] [address]Dr. Airam eDuce Basophils/100 WBC (Bld) 0.5 % Normal 0.2-2.0 [facility] Comment on above: Performed By: #### C BC ####[facility] Uktkajnyrq19[address] [place], [place] [address]Dr. Airam Tripathi EO # 0.3 103/ul Normal 0.0-0.7 [facility] Comment on above: Performed By: #### C BC ####[facility] Zvlzcpcxos8201[address] [place], [place] [address]Dr. Airam Deuce Eosinophils/100 WBC (Bld) 3.6 % Normal 0.9-7.0 [facility] Comment on above: Performed By: #### C BC ####[facility] Ybtcygjitj056[address] [place], [place] [address]Dr. Airam Deuce Erythrocyte distribution width (RBC) [Ratio] 13.4 % Normal 11.0-15.0 [facility] Comment on above: Performed By: #### C BC ####[facility] Zzpgqdjpbl42[address] [place] [address]DrKianna Tripathi Hematocrit (Bld) [Volume fraction] 30.6 % Critically low 36.0-48.0 [facility] Comment on above: Performed By: #### C BC ####[facility] Ccawuzmnlg[address] [place], [place] [address]DrKianna Tripathi Hemoglobin (Bld) [Mass/Vol] 9.7 g/dL Critically low 12.0-16.0 [facility] Comment on above: Performed By: #### C BC ####[facility] Bymzcixvmo[address] [place], [place] [address]DrKianna Tripathi IG # 0.08 10e3/ul Critically high 0.00-0.03 [facility] Comment on above: Performed By: #### C BC ####[facility] Knptlbqkch280[address] [place], [place] [address]DrKianna Tripathi IG % 0.9 % Critically high 0.0-0.5 [facility] Comment on above: Performed By: #### C BC ####[facility] Xgnzsvnsjn[address] [place], [place] [address]DrKianna Tripathi LYMPH # 2.1 103/ul Normal 1.2-3.8 [facility] Comment on above: Performed By: #### C BC ####[facility] Sjoikuewiq624[address] [place], [place] [address]DrKianna Tripathi Lymphocytes/100 WBC (Bld) 24.2 % Normal 20.5-60.0 [facility] Comment on above: Performed By: #### C BC ####[facility] Pienmspisp[address] [place], [place] [address]DrKianna Tripathi MANUAL DIFF REQ NO Normal [facility] Comment on above: Performed By: #### C BC ####[facility] Uuwjcradll054[address] [place], [place] [address]DrKianna Tripathi MCH (RBC) [Entitic mass] 30.4 pg Normal 26.7-34.0 [facility] Comment on above: Performed By: #### C BC ####[facility] Zlcyywummu8[address] [place] [address]Dr. iAram Tripathi MCHC (RBC) [Mass/Vol] 31.7 g/dL Normal 29.9-35.2 [facility] Comment on above: Performed By: #### C BC ####[facility] Hajzzhgbja[address] [place], [place] [address]DrKianna Tripathi MCV (RBC) [Entitic vol] 95.9 fL Normal 81.0-99.0 [facility] Comment on above: Performed By: #### C BC ####[facility] Walxsckcil60[address] [place], [place] [address]DrKianna Tripathi MONO # 0.5 103/ul Normal 0.3-0.8 [facility] Comment on above: Performed By: #### C BC ####[facility] Yenpyzcbtr[address] [place], [place] [address]Dr. Airam Tripathi Monocytes/100 WBC (Bld) 6.0 % Normal 1.7-12.0 [facility] Comment on above: Performed By: #### C BC ####[facility] Jdpoademab[address] [place], [place] [address]DrKianna Tripathi NEUT # 5.6 103/ul Normal 1.4-6.5 [facility] Comment on above: Performed By: #### C BC ####[facility] Tjgetxjptp[address] [place], [place] [address]DrKianna Tripathi Neutrophils/100 WBC (Bld) 64.8 % Normal 43.0-75.0 [facility] Comment on above: Performed By: #### C BC ####[facility] Utqmtpighi489[address] [place], [place] [address]DrKianna Tripathi Platelet mean volume (Bld) [Entitic vol] 9.2 fL Critically low 9.5-13.5 [facility] Comment on above: Performed By: #### C BC ####[facility] Hfmjhvwlff13[address] [place], [place] [address]DrKianna Tripathi PLT 296 103/ul Normal 150-450 [facility] Comment on above: Performed By: #### C BC ####[facility] Zgqywbvfoo[address] [place] [address]Dr. Selenaneil Deuce RBC 3.19 106/ul Critically low 4.20-5.40 [facility] Comment on above: Performed By: #### C BC ####[facility] Oibbekjmiq[address] [place] [address]Dr. Airam Tripathi WBC 8.6 103/ul Normal 4.0-11.0 [facility] Comment on above: Performed By: #### C BC ####[facility] Qorcfbcngq6551 [place] [address]DrKianna Tripathi PROF 14(COMP METB)on 022 Albumin [Mass/Vol] 3.2 g/dL Critically low 3.4-5.0 e [facility] Comment on above: Performed By: #### C MP ####[facility] Sgxibckqts358[address] [place], [place] [address]Dr. Airam Tripathi Albumin/Globulin [Mass ratio] 1.0 {ratio} Normal [facility] Comment on above: Performed By: #### C MP ####[facility] Vluuywktxz1817[address] [place], [place] [address]Dr. Airam Tripathi ALP [Catalytic activity/Vol] 126 U/L Critically high 46-116 [facility] Comment on above: Performed By: #### C MP ####[facility] Lshtpobxsn[address] [place] [address]Dr. Airam Tripathi ALT [Catalytic activity/Vol] 27 U/L Normal 14-59 [facility] Comment on above: Performed By: #### C MP ####[facility] Mryqwgjqyj3408 [place] [address]Dr. Airam Tripathi Anion gap [Moles/Vol] 9.6 mmol/L Normal [facility] Comment on above: Performed By: #### C MP ####[facility] Rqdqtpuydw449[address] [place], [place] [address]Dr. Airam Tripathi AST [Catalytic activity/Vol] 25 U/L Normal 15-37 [facility] Comment on above: Performed By: #### C MP ####[facility] Chdspwbnay9[address] [place] [address]Dr. Airam Deuce Bilirubin [Mass/Vol] 0.3 mg/dL Normal 0.2-1.0 [facility] Comment on above: Performed By: #### C MP ####[facility] Gilzwimkgt78[address] [place], [place] [address]Dr. Airam Tripathi Calcium [Mass/Vol] 8.1 mg/dL Critically low 8.5-10.1 Th [facility] Comment on above: Performed By: #### C MP ####[facility] Cjovnngpbq075[address] [place], [place] [address]Dr. Airam Tripathi Chloride [Moles/Vol] 100 mmol/L Normal 98-107 [facility] Comment on above: Performed By: #### C MP ####[facility] Qhufcgocva823[address] [place], [place] [address]Dr. Airam Tripathi CO2 [Moles/Vol] 26.5 mmol/L Normal 21.0-32.0 [facility] Comment on above: Performed By: #### C MP ####[facility] Fhudozywyy120[address] [place], [place] [address]Dr. Airam Tripathi Creatinine [Mass/Vol] 1.52 mg/dL Critically high 0.55-1.02 [facility] Comment on above: Performed By: #### C MP ####[facility] Zjpkextumx9[address] [place], [place] [address]Dr. Airam Tripathi EGFR-AF GUAMANIAN 42 mL/min/1.73m2 Critically low >=60 [facility] Comment on above: Performed By: #### C MP ####[facility] Swvnbumhdi323[address] [place], [place] [address]Dr. Airam Tripathi EGFR-NON AF GUAMANIAN 35 mL/min/1.73m2 Critically low >=60 [facility] Comment on above: Performed By: #### C MP ####[facility] Ypyjxfsgdi80[address] [place], [place] [address]Dr. Airam Tripathi Globulin (S) [Mass/Vol] 3.3 g/dL Normal [facility] Comment on above: Performed By: #### C MP ####[facility] Cegkvsiufq14[address] [place] [address]Dr. Airam Deuce Glucose [Mass/Vol] 75 mg/dL Normal 74-106 [facility] Comment on above: Performed By: #### C MP ####[facility] Nmciyoyczr[address] [place], [place] [address]Dr. Airam Tripathi Potassium [Moles/Vol] 4.1 mmol/L Normal 3.5-5.1 [facility] Comment on above: Performed By: #### C MP ####[facility] Qczamoeybe497[address] [place], [place] [address]Dr. Airam Tripathi Protein [Mass/Vol] 6.5 g/dL Normal 6.4-8.2 [facility] Comment on above: Performed By: #### C MP ####[facility] Gdoovjowkq988[address] [place], [place] [address]Dr. Airam Tripathi Sodium [Moles/Vol] 132 mmol/L Critically low 136-145 Th [facility] Comment on above: Performed By: #### C MP ####[facility] Xpnacbxmhr248[address] [place], [place] [address]Dr. Airam Tripathi Urea nitrogen [Mass/Vol] 40.0 mg/dL Critically high 7.0-18.0 [facility] Comment on above: Performed By: #### C MP ####[facility] Nepcildvvj285[address] [place], [place] [address]Dr. Airam Tripathi Urea nitrogen/Creatinine [Mass ratio] 26.3 mg/mg Normal [facility] Comment on above: Performed By: #### C MP ####[facility] Yoxcrynsoi214[address] [place], [place] [address]Dr. Airam Tripathi OSMOLALITYon 04-10-2022 Osmolality [Osmolality] 280 mosm/kg Normal 275-295 [facility] Comment on above: Performed By: #### O SMO ####[facility] Ufoozuamgw58[address] [place], [place] [address]Dr. Airam Tripathi PTH INTACTon 04-09-2022 PTH, Intact 89 pg/mL Critically high 15-65 [facility] Comment on above: Performed By: #### P THINT ####[facility] [address]jupactdlg37[address] [place] [address]Dr. Airam Tripathi CBC W MANUAL DIFFon 04-08-20 22 ATYPICAL LYMPH # Normal [facility] Comment on above: Performed By: #### C CHRISTEN ####[facility] Lqkwejrqcw25[address] [place] [address]Dr. Airam Tripathi ATYPICAL LYMPH % Normal [facility] Comment on above: Performed By: #### C CONNIEMAN ####[facility] Zkxgrgspmk[address] [place], [place] [address]Dr. Airam Tripathi BAND # Normal 0.0-0.3 [facility] Comment on above: Performed By: #### C CHRISTEN ####[facility] Supwhxricv[address] [place], [place] [address]Dr. Airam Tripathi BAND % Normal 0-5 [facility] Comment on above: Performed By: #### C CHRISTEN ####[facility] Wviwjaxrax[address] [place], [place] [address]Dr. Airam Tripathi BASOM # 0.00 103/ul Normal 0.00-0.10 [facility] Comment on above: Performed By: #### C CHRISTEN ####[facility] Xrafjtuayb332[address] [place], [place] [address]Dr. Airam Deuce BASOM % 0.0 % Critically low 0.2-2.0 [facility] Comment on above: Performed By: #### C BCGERALDINE ####[facility] [address]jynwevjk63[address] [place], [place] [address]Dr. Airam Tripathi BLAST # Normal [facility] Comment on above: Performed By: #### C CHRISTEN ####[facility] Leycmoxvrr[address] [place], [place] [address]Dr. Airam Tripathi BLAST % Normal [facility] Comment on above: Performed By: #### C CHRISTEN ####[facility] Ntjfosxnfj174[address] [place], [place] [address]Dr. Airam Tripathi CORRECTED WBC Normal 4.0-11.0 [facility] Comment on above: Performed By: #### C CHRISTEN ####[facility] [address]fbry[address] [place], [place] [address]Bd. Airam Tripathi EOS # 0.00 103/ul Normal 0.00-0.70 [facility] Comment on above: Performed By: #### C CHRISTEN ####[facility] Zengpzdfkj98[address] [place] [phone]. Airam Tripathi EOS% 0.0 % Critically low 0.9-7.0 [facility] Comment on above: Performed By: #### C CHRISTEN ####[facility] Wlocnawccb2571 [place] [phone]. Airam Tripathi HCT 29.7 % Critically low 36.0-48.0 [facility] Comment on above: Performed By: #### C CHRISTEN ####[facility] Yzqhjeivjv0191 [place] [phone]. Airam Tripathi HGB 9.5 g/dl Critically low 12.0-16.0 [facility] Comment on above: Performed By: #### C CHRISTEN ####[facility] Fnjohmstrz8471 [place] [phone]. Airam Tripathi LYMPHM # 0.42 103/ul Critically low 1.20-3.80 [facility] Comment on above: Performed By: #### C CHRISTEN ####[facility] Mjwogycdfw75[address] [place] [phone]. Airam Tripathi LYMPHM% 7.0 % Critically low 20.5-60.0 [facility] Comment on above: Performed By: #### C CHRISTEN ####[facility] Fzniremhif9715 [place] [phone]. Airam Tripathi MCH 30.9 pg Normal 26.7-34.0 [facility] Comment on above: Performed By: #### C CHRISTEN ####[facility] Ftarclqxdk[address] [place] [phone]. Airam Tripathi MCHC 32.0 g/dl Normal 29.9-35.2 [facility] Comment on above: Performed By: #### C CHRISTEN ####[facility] Oekehvboyo[address] [place] [phone]. Airam Tripathi MCV 96.7 fL Normal 81.0-99.0 [facility] Comment on above: Performed By: #### C CHRISTEN ####[facility] Taqdibszfc1659 [place] [phone]. Airam Tripathi METAMYELOCYTE # Normal [facility] Comment on above: Performed By: #### C CHRISTEN ####[facility] Flcsioiufs8[address] [place] [phone]. Airam Tripathi METAMYELOCYTE % Normal [facility] Comment on above: Performed By: #### C CHRISTEN ####[facility] Qtwfbmnszo[address] [place], [place] [address]Dr. Airam Tripathi MONOM# 0.36 103/ul Normal 0.30-0.80 [facility] Comment on above: Performed By: #### C CHRISTEN ####[facility] E[address]apykyihr[address] [place], [place] [address]Dr. Airam Tripathi MONOM% 6.0 % Normal 1.7-12.0 [facility] Comment on above: Performed By: #### Jodee VELÁSQUEZ ####[facility] Qyeawekuhj[address] [place], [place] [address]Dr. Airam Tripathi MPV 9.5 fL Normal 9.5-13.5 [facility] Comment on above: Performed By: #### C CHRISTEN ####[facility] Kcyldrwgjm[address] [place], [place] [address]Dr. Airam Tripathi MYELOCYTE # Normal [facility] Comment on above: Performed By: #### C CHRISTEN ####[facility] Fyqlfgfqhm[address] [place], [place] [address]Dr. Airam Tripathi MYELOCYTE % Normal [facility] Comment on above: Performed By: #### C CHRISTEN ####[facility] Cbolametwd02[address] [place], [place] [address]Dr. Airam Tripathi NRBC Normal [facility] Comment on above: Performed By: #### C CHRISTEN ####[facility] Lcpprntras[address] [place], [place] [address]Jo. Airam Tripathi PLT 185 103/ul Normal 150-450 [facility] Comment on above: Performed By: #### Jodee VELÁSQUEZ ####[facility] Vqkiowwxkt2778 [place], [place] [address]Mc. Airam Tripathi RBC 3.07 106/ul Critically low 4.20-5.40 [facility] Comment on above: Performed By: #### Jodee VELÁSQUEZ ####[facility] Rkbymqiwyb5593 [place] [phone]. Airam Tripathi RDW 13.6 % Normal 11.0-15.0 [facility] Comment on above: Performed By: #### Jodee VELÁSQUEZ ####[facility] Xeunuqmfqv5599 [place] [phone]. Airam Tripathi SEG # 5.22 103/ul Normal 1.40-6.50 [facility] Comment on above: Performed By: #### Jodee VELÁSQUEZ ####[facility] Opusecatgo45[address] [place] [phone]. Airam Tripathi SEG % 87.0 % Critically high 43.0-75.0 [facility] Comment on above: Performed By: #### Jodee VELÁSQUEZ ####[facility] Korpbvnrpv2915 [place] [phone]. Airam Tripathi WBC 6.0 103/ul Normal 4.0-11.0 [facility] Comment on above: Performed By: #### Jodee VELÁSQUEZ ####[facility] [address] [place], [place] [id number]. Airam Tripathi FREE THYROXINE INDEX T7on FTI 1.57 Normal 1.30-4.50 [facility] Comment on above: Performed By: #### T 7, TSH, CMP ####[facility] Vofufacfji7[address] [place] [phone]. Airam Tripathi T3U 32.0 % Normal 30.0-39.0 [facility] Comment on above: Performed By: #### T 7, TSH, CMP ####[facility] Bvbfmrdvya[address] [place], [place] [id number]. Airam Tripathi T4 [Mass/Vol] 4.90 ug/dL Normal 4.80-13.90 [facility] Comment on above: Performed By: #### T 7, TSH, CMP ####[facility] Zktdzneqvv[address] [place] [address]Dr. Airam Tripathi PROF 14(COMP METB)on 04-08- 022 Albumin [Mass/Vol] 3.0 g/dL Critically low 3.4-5.0 [facility] Comment on above: Performed By: #### T 7, TSH, CMP ####[facility] Mstkionqwq2854 [place] [address]Dr. Airam Tripathi Albumin/Globulin [Mass ratio] 1.0 {ratio} Normal [facility] Comment on above: Performed By: #### T 7, TSH, CMP ####[facility] Axnalhdrjq7[address] [place], [place] [address]Dr. Airam Tripathi ALP [Catalytic activity/Vol] 106 U/L Normal 46-116 [facility] Comment on above: Performed By: #### T 7, TSH, CMP ####[facility] Lqfhvmndmu0635 [place] [address]Dr. Airam Tripathi ALT [Catalytic activity/Vol] 20 U/L Normal 14-59 [facility] Comment on above: Performed By: #### T 7, TSH, CMP ####[facility] Hvhgewovzj4668 [place] [address]Dr. Airam Tripathi Anion gap [Moles/Vol] 10.8 mmol/L Normal [facility] Comment on above: Performed By: #### T 7, TSH, CMP ####[facility] Qbvwfldvqj2766 [place] [address]Dr. Airam Tripathi AST [Catalytic activity/Vol] 19 U/L Normal 15-37 [facility] Comment on above: Performed By: #### T 7, TSH, CMP ####[facility] Qjjdewrhsz6836 [place] [address]Dr. Airam Tripathi Bilirubin [Mass/Vol] 0.3 mg/dL Normal 0.2-1.0 [facility] Comment on above: Performed By: #### T 7, TSH, CMP ####[facility] W[address]ruqldhqh[address] [place], [place] [address]Dr. Airam Tripathi Calcium [Mass/Vol] 8.0 mg/dL Critically low 8.5-10.1 [facility] Comment on above: Performed By: #### T 7, TSH, CMP ####[facility] Ekphurvsru[address] [place], [place] [address]Dr. Airam Tripathi Chloride [Moles/Vol] 100 mmol/L Normal 98-107 [facility] Comment on above: Performed By: #### T 7, TSH, CMP ####[facility] Qhwxkhplxi[address] [place], [place] [address]Dr. Airam Tripathi CO2 [Moles/Vol] 24.3 mmol/L Normal 21.0-32.0 [facility] Comment on above: Performed By: #### T 7, TSH, CMP ####[facility] Tjzyvlywdo[address] [place], [place] [address]Dr. Airam Tripathi Creatinine [Mass/Vol] 1.12 mg/dL Critically high 0.55-1.02 [facility] Comment on above: Performed By: #### T 7, TSH, CMP ####[facility] Tugbtpszuf[address] [place], [place] [address]Dr. Airam Tripathi EGFR-AF GUAMANIAN 60 mL/min/1.73m2 Normal >=60 [facility] Comment on above: Performed By: #### T 7, TSH, CMP ####[facility] Duugpynmjv[address] [place], [place] [address]Dr. Airam Tripathi EGFR-NON AF GUAMANIAN 50 mL/min/1.73m2 Critically low >=60 [facility] Comment on above: Performed By: #### T 7, TSH, CMP ####[facility] Zbjpirodjb[address] [place], [place] [address]Dr. Airam Tripathi Globulin (S) [Mass/Vol] 3.0 g/dL Normal [facility] Comment on above: Performed By: #### T 7, TSH, CMP ####[facility] Lzniwvzewt[address] [place], [place] [address]Dr. Airam Tripathi Glucose [Mass/Vol] 76 mg/dL Normal 74-106 [facility] Comment on above: Performed By: #### T 7, TSH, CMP ####[facility] [address]fe[address] [place] [address]Dr. Airam Tripathi Potassium [Moles/Vol] 4.1 mmol/L Normal 3.5-5.1 [facility] Comment on above: Performed By: #### T 7, TSH, CMP ####[facility] [address] [place] [address]Dr. Airam Tripathi Protein [Mass/Vol] 6.0 g/dL Critically low 6.4-8.2 [facility] Comment on above: Performed By: #### T 7, TSH, CMP ####[facility] Iqiazmokeq[address] [place], [place] [address]Dr. Airam Tripathi Sodium [Moles/Vol] 131 mmol/L Critically low 136-145 [facility] Comment on above: Performed By: #### T 7, TSH, CMP ####[facility] [address]akqaora[address] [place] [address]Dr. Airam Tripathi Urea nitrogen [Mass/Vol] 32.0 mg/dL Critically high 7.0-18.0 [facility] Comment on above: Performed By: #### T 7, TSH, CMP ####[facility] [address]pr[address] [place] [address]Dr. Airam Tripathi Urea nitrogen/Creatinine [Mass ratio] 28.6 mg/mg Normal [facility] Comment on above: Performed By: #### T 7, TSH, CMP ####[facility] [address]ws[address] [place] [address]Dr. Airam Tripathi TSHon 04-08-2022 TSH 0.027 uIU/mL Critically low 0.358-3.74 0 [facility] Comment on above: Performed By: #### T 7, TSH, CMP ####[facility] [address]kt[address] [place] [address]Dr. Airam Tripathi UA RANDOMon 04-08-2022 Bilirubin Ql (U) Negative Normal NEGATIVE [facility] Comment on above: Performed By: #### U A ####[facility] Qaonjdrtnx[address] [place], [place] [address]Dr. Airam Tripathi Clarity (U) CLEAR Normal CLEAR [facility] Comment on above: Performed By: #### U A ####[facility] Jnwnvzxrvn[address] [place], [place] [address]Dr. Airam Tripathi Color (U) LT. YELLOW Normal YELLOW [facility] Comment on above: Performed By: #### U A ####[facility] Vkdvbvpwlg[address] [place], [place] [address]Dr. Airam Tripathi Glucose Ql (U) Negative Normal NEGATIVE [facility] Comment on above: Performed By: #### U A ####[facility] Tukjbzfgcj[address] [place], [place] [address]Dr. Airam Triptahi Hemoglobin Ql (U) Negative Normal NEGATIVE [facility] Comment on above: Performed By: #### U A ####[facility] Nlzxnmpkam[address] [place], [place] [address]Dr. Airam Tripathi Ketones Ql (U) Negative Normal NEGATIVE [facility] Comment on above: Performed By: #### U A ####[facility] Zxpmurkemv[address] [place], [place] [address]Dr. Airam Tripathi LEUKOCYTES Negative Normal NEGATIVE [facility] Comment on above: Performed By: #### U A ####[facility] Rimrirliyc7[address] [place], [place] [address]Dr. Airam Tripathi Nitrite Ql (U) Negative Normal NEGATIVE [facility] Comment on above: Performed By: #### U A ####[facility] Gkxmrryrus[address] [place], [place] [address]Dr. Airam Tripathi pH (U) 6.0 [pH] Normal 5-9 [facility] Comment on above: Performed By: #### U A ####[facility] Hhsixnfrxm[address] [place], [place] [address]Dr. Airam Tripathi SPEC GRAVITY 1.010 Normal 1.005-<=1. 025 [facility] Comment on above: Performed By: #### U A ####[facility] Wrz[address]fexkh[address] [place] [address]Dr. Airam Tripathi UA PROTEIN Negative Normal NEGATIVE/ TRACE [facility] Comment on above: Performed By: #### U A ####[facility] Zijzmbxoxc40[address] [place] [address]Dr. Airam Tripathi Urobilinogen Qn (U) 0.2 {Ligia'U}/dL Normal 0.2 - 1. 0 [facility] Comment on above: Performed By: #### U A ####[facility] Jdniqkunme[address] [place], [place] [address]Dr. Airam Tripathi URINE T PROTEIN CREAT RATIOo n 04-08-2022 UR PROT CREAT RAT 0.32 Normal [facility] Comment on above: Performed By: #### U RTPCR ####[facility] Oamumzbuxs[address] [place], [place] [address]Dr. Airam Tripathi UR TOTAL PROTEIN <6.0 Normal <=12.0 [facility] Comment on above: Performed By: #### U RTPCR ####[facility] Myngivdamu20[address] [place], [place] [address]Dr. Airam Tripathi URINE CREAT 18.75 mg/dL Critically low 20.00-300. 00 [facility] Comment on above: Performed By: #### U RTPCR ####[facility] Mbskfllxoz[address] [place], [place] [address]Dr. Airam Tripathi FERRITINon 04-06-2022 Ferritin [Mass/Vol] 99.0 ng/mL Normal 8.0-252.0 [facility] Comment on above: Performed By: #### F ETIBC, VITAD, FERR ####[facility] Kvptgbvaue[address] [place], [place] [address]Dr. Airam Tripathi IRON AND TIBCon 04-06-2022 % SATURATION 15.4 % Normal [facility] Comment on above: Performed By: #### F ETIBC, VITAD, FERR ####[facility] Tcnkatkyas[address] [place], [place] [address]Dr. Airam Tripathi Iron [Mass/Vol] 43.0 ug/dL Critically low 50.0-170.0 [facility] Comment on above: Performed By: #### F ETIBC, VITAD, FERR ####[facility] [address]vt[address]yst[address] [place] [address]Dr. Airam Tripathi TIBC DIRECT 280.0 ug/dL Normal 250.0-450. 0 [facility] Comment on above: Performed By: #### F ETIBC, VITAD, FERR ####[facility] Iwb[address]rpjww[address] [place] [address]Dr. Airam Tripathi PROF 14(COMP METB)on 022 Albumin [Mass/Vol] 3.2 g/dL Critically low 3.4-5.0 [facility] Comment on above: Performed By: #### C MP, URIC ####[facility] Obsijyzcwl[address] [place], [place] [address]Dr. Airam Tripathi Albumin/Globulin [Mass ratio] 1.0 {ratio} Normal [facility] Comment on above: Performed By: #### C MP, URIC ####[facility] Ybvimpysic[address] [place], [place] [address]Dr. Airam Tripathi ALP [Catalytic activity/Vol] 118 U/L Critically high 46-116 [facility] Comment on above: Performed By: #### C MP, URIC ####[facility] Xhfxjckuwo[address] [place], [place] [address]Dr. Airam Tripathi ALT [Catalytic activity/Vol] 24 U/L Normal 14-59 [facility] Comment on above: Performed By: #### C MP, URIC ####[facility] Aeicckvorv312[address] [place], [place] [address]Dr. Airam Tripathi Anion gap [Moles/Vol] 14.4 mmol/L Normal [facility] Comment on above: Performed By: #### C MP, URIC ####[facility] Oyasnpqubd7[address] [place], [place] [address]Dr. Airam Tripathi AST [Catalytic activity/Vol] 21 U/L Normal 15-37 [facility] Comment on above: Performed By: #### C MP, URIC ####[facility] Gviwdtvrzm142[address] [place], [place] [address]Dr. Airam Tripathi Bilirubin [Mass/Vol] 0.3 mg/dL Normal 0.2-1.0 [facility] Comment on above: Performed By: #### C MP, URIC ####[facility] Lpscereuhu[address] [place], [place] [address]Dr. Airam Tripathi Calcium [Mass/Vol] 8.0 mg/dL Critically low 8.5-10.1 [facility] Comment on above: Performed By: #### C MP, URIC ####[facility] Aeusiagwso[address] [place], [place] [address]Dr. Airam Tripathi Chloride [Moles/Vol] 98 mmol/L Normal 98-107 [facility] Comment on above: Performed By: #### C MP, URIC ####[facility] Sosoyhkvkm[address] [place], [place] [address]Dr. Airam Tripathi CO2 [Moles/Vol] 22.0 mmol/L Normal 21.0-32.0 [facility] Comment on above: Performed By: #### C MP, URIC ####[facility] Ifetzwpkxg[address] [place], [place] [address]Dr. Airam Tripathi Creatinine [Mass/Vol] 1.86 mg/dL Critically high 0.55-1.02 [facility] Comment on above: Performed By: #### C MP, URIC ####[facility] Vrfypolybr[address] [place], [place] [address]Dr. Airam Tripathi EGFR-AF GUAMANIAN 33 mL/min/1.73m2 Critically low >=60 [facility] Comment on above: Performed By: #### C MP, URIC ####[facility] Ncuubvovhv[address] [place], [place] [address]Dr. Airam Tripathi EGFR-NON AF GUAMANIAN 28 mL/min/1.73m2 Critically low >=60 [facility] Comment on above: Performed By: #### C MP, URIC ####[facility] Lyfwjaiffz[address] [place], [place] [address]Dr. Airam Tripathi Globulin (S) [Mass/Vol] 3.1 g/dL Normal [facility] Comment on above: Performed By: #### C MP, URIC ####[facility] Yrucomtocv[address] [place] [id number]. Airam Tripathi Glucose [Mass/Vol] 93 mg/dL Normal 74-106 [facility] Comment on above: Performed By: #### C MP, URIC ####[facility] Y[address]uwv[address] [place] [id number]. Airam Tripathi Potassium [Moles/Vol] 4.4 mmol/L Normal 3.5-5.1 [facility] Comment on above: Performed By: #### C MP, URIC ####[facility] [address]ql[address]zhbpja[address] [place] [id number]. Airam Tripathi Protein [Mass/Vol] 6.3 g/dL Critically low 6.4-8.2 [facility] Comment on above: Performed By: #### C MP, URIC ####[facility] Qwekcpojte[address] [place] [address]Dr. Airam Tripathi Sodium [Moles/Vol] 130 mmol/L Critically low 136-145 [facility] Comment on above: Performed By: #### C MP, URIC ####[facility] Ouulmqkxxk4[address] [place] [address]Dr. Airam Tripathi Urea nitrogen [Mass/Vol] 49.0 mg/dL Critically high 7.0-18.0 [facility] Comment on above: Performed By: #### C MP, URIC ####[facility] Z[address]wkkqyts[address] [place] [address]Dr. Airam Tripathi Urea nitrogen/Creatinine [Mass ratio] 26.3 mg/mg Normal [facility] Comment on above: Performed By: #### C MP, URIC ####[facility] Ynaigtowhj[address] [place] [address]Dr. Airam Tripathi URIC ACID SERUMon 04-06-2022 Urate [Mass/Vol] 6.5 mg/dL Critically high 2.6-6.0 [facility] Comment on above: Performed By: #### C MP, URIC ####[facility] Azq[address]wlj[address] [place] [address]Dr. Airam Tripathi VITAMIN D 25 OHon 04-06-2022 VIT D 25-OH 74.5 ng/mL Normal [facility] Comment on above: Performed By: #### F ETIBC, VITAD, FERR ####[facility] Afrnfactdt[address] [place], [place] [address]Dr. Airam Tripathi VIT D RANGES SEE BELOW Normal [facility] Comment on above: Result Comment: <20 ng/mL Vit D deficient 20 - <30 ng/mL Vit D insufficient 30 - 100 ng/mL Vit D sufficient >100 ng/mL Potential Toxicity Performed By: #### F ETIBC, VITAD, FERR ####[facility] Eiyltdfkzl[address] [place], [place] [address]Dr. Airam Tripathi OSMOLALITYon 04-01-2022 Osmolality [Osmolality] 284 mosm/kg Normal 275-295 [facility] Comment on above: Performed By: #### O SMO ####[facility] Ojxrzlhujf[address] [place], [place] [address]Dr. Airam Deuce CBC AUTO DIFFon 03-31-2022 BASO # 0.0 103/ul Normal 0.0-0.1 [facility] Comment on above: Performed By: #### C BC ####[facility] Tsy[address]drojv[address] [place], [place] [address]Dr. Airam Tripathi Basophils/100 WBC (Bld) 0.3 % Normal 0.2-2.0 [facility] Comment on above: Performed By: #### C BC ####[facility] Ijaqxdazqv[address] [place], [place] [address]Dr. Airam Tripathi EO # 0.1 103/ul Normal 0.0-0.7 [facility] Comment on above: Performed By: #### C BC ####[facility] Wymltsuwvd[address] [place], [place] [address]Dr. Airam Tripathi Eosinophils/100 WBC (Bld) 2.0 % Normal 0.9-7.0 [facility] Comment on above: Performed By: #### C BC ####[facility] Pabqgmfovz[address] [place], [place] [address]Dr. Airam Tripathi Erythrocyte distribution width (RBC) [Ratio] 13.5 % Normal 11.0-15.0 [facility] Comment on above: Performed By: #### C BC ####[facility] [address]suvvcp[address] [place] [address]DrKianna Airam Tripathi Hematocrit (Bld) [Volume fraction] 32.5 % Critically low 36.0-48.0 [facility] Comment on above: Performed By: #### C BC ####[facility] Xkjugtqivl[address] [place] [address]DrKianna Tripathi Hemoglobin (Bld) [Mass/Vol] 10.1 g/dL Critically low 12.0-16.0 [facility] Comment on above: Performed By: #### C BC ####[facility] Brghjjviyc[address] [place], [place] [address]DrKianna Tripathi IG # 0.03 10e3/ul Normal 0.00-0.03 [facility] Comment on above: Performed By: #### C BC ####[facility] Xszpjiakgl[address] [place], [place] [address]DrKianna Tripathi IG % 0.4 % Normal 0.0-0.5 [facility] Comment on above: Performed By: #### C BC ####[facility] Yopwlegedk[address] [place], [place] [address]DrKianna Tripathi LYMPH # 1.6 103/ul Normal 1.2-3.8 [facility] Comment on above: Performed By: #### C BC ####[facility] Yadohncuou[address] [place], [place] [address]DrKianna Tripathi Lymphocytes/100 WBC (Bld) 22.6 % Normal 20.5-60.0 [facility] Comment on above: Performed By: #### C BC ####[facility] Bvaeprfffg[address] [place], [place] [address]DrKianna Tripathi MANUAL DIFF REQ NO Normal [facility] Comment on above: Performed By: #### C BC ####[facility] Iqtsuknrso[address] [place], [place] [address]DrKianna Tripathi MCH (RBC) [Entitic mass] 30.5 pg Normal 26.7-34.0 [facility] Comment on above: Performed By: #### C BC ####[facility] Rfnqpxhirk[address] [place] [phone]. Airam Deuce MCHC (RBC) [Mass/Vol] 31.1 g/dL Normal 29.9-35.2 [facility] Comment on above: Performed By: #### C BC ####[facility] Bfooloicve[address] [place] [phone] Tripathi MCV (RBC) [Entitic vol] 98.2 fL Normal 81.0-99.0 [facility] Comment on above: Performed By: #### C BC ####[facility] Jeneuktgho9[address] [place], [place] [address]Dr. Airam Tripathi MONO # 0.5 103/ul Normal 0.3-0.8 [facility] Comment on above: Performed By: #### C BC ####[facility] Gmzmlldrxx[address] [place], [place] [address]Dr. Airam Tripathi Monocytes/100 WBC (Bld) 7.3 % Normal 1.7-12.0 [facility] Comment on above: Performed By: #### C BC ####[facility] Cwwactdugr[address] [place], [place] [address]Dr. Airam Tripathi NEUT # 4.7 103/ul Normal 1.4-6.5 [facility] Comment on above: Performed By: #### C BC ####[facility] Cluxyzxbjr[address] [place], [place] [address]DrKianna Tripathi Neutrophils/100 WBC (Bld) 67.4 % Normal 43.0-75.0 [facility] Comment on above: Performed By: #### C BC ####[facility] N[address] [place], [place] [id number] Tripathi Platelet mean volume (Bld) [Entitic vol] 9.5 fL Normal 9.5-13.5 [facility] Comment on above: Performed By: #### C BC ####[facility] Gzzmxrxpea[address] [place], [place] [id number]. Airam Tripathi PLT 273 103/ul Normal 150-450 [facility] Comment on above: Performed By: #### C BC ####[facility] Jjnsjhnvdf39[address] [place] [address]Dr. Airam Tripathi RBC 3.31 106/ul Critically low 4.20-5.40 [facility] Comment on above: Performed By: #### C BC ####[facility] Biaisqacyp[address] [place] [address]Dr. Airam Tripathi WBC 7.0 103/ul Normal 4.0-11.0 [facility] Comment on above: Performed By: #### C BC ####[facility] Kpmecsxzmp[address] [place] [address]Dr. Airam Tripathi PROF 14(COMP METB)on 022 Albumin [Mass/Vol] 3.4 g/dL Normal 3.4-5.0 [facility] Comment on above: Performed By: #### C MP ####[facility] Rxp[address]fgzwl[address] [place], [place] [address]Dr. Airam Tripathi Albumin/Globulin [Mass ratio] 1.1 {ratio} Normal [facility] Comment on above: Performed By: #### C MP ####[facility] Xpdskjitqx[address] [place], [place] [address]Dr. Airam Tripathi ALP [Catalytic activity/Vol] 107 U/L Normal 46-116 [facility] Comment on above: Performed By: #### C MP ####[facility] Rdchqtfuxn[address] [place], [place] [address]Dr. Airam Tripathi ALT [Catalytic activity/Vol] 22 U/L Normal 14-59 [facility] Comment on above: Performed By: #### C MP ####[facility] K[address]udkqlhm[address] [place] [address]Dr. Airam Tripathi Anion gap [Moles/Vol] 6.8 mmol/L Normal [facility] Comment on above: Performed By: #### C MP ####[facility] Jbuwgkzxsu9826 [place] [address]Dr. Airam Tripathi AST [Catalytic activity/Vol] 23 U/L Normal 15-37 [facility] Comment on above: Performed By: #### C MP ####[facility] Zexwjioytm[address] [place] [phone]. Airam Tripathi Bilirubin [Mass/Vol] 0.2 mg/dL Normal 0.2-1.0 [facility] Comment on above: Performed By: #### C MP ####[facility] Hwsrynrufe[address] [place] [address]Dr. Airam Tripathi Calcium [Mass/Vol] 8.4 mg/dL Critically low 8.5-10.1 [facility] Comment on above: Performed By: #### C MP ####[facility] Fnuuewenoc[address] [place], [place] [address]Dr. Airam Tripathi Chloride [Moles/Vol] 100 mmol/L Normal 98-107 [facility] Comment on above: Performed By: #### C MP ####[facility] Vdvoynfbdn[address] [place], [place] [address]Dr. Airam Tripathi CO2 [Moles/Vol] 29.9 mmol/L Normal 21.0-32.0 [facility] Comment on above: Performed By: #### C MP ####[facility] Xpcbnndhpt[address] [place], [place] [address]Dr. Airam Tripathi Creatinine [Mass/Vol] 1.20 mg/dL Critically high 0.55-1.02 [facility] Comment on above: Performed By: #### C MP ####[facility] Ucbrmrqyhz[address] [place], [place] [address]Dr. Airam Tripathi EGFR-AF GUAMANIAN 56 mL/min/1.73m2 Critically low >=60 [facility] Comment on above: Performed By: #### C MP ####[facility] Pxckolpdvu[address] [place], [place] [address]Dr. Airam Tripathi EGFR-NON AF GUAMANIAN 46 mL/min/1.73m2 Critically low >=60 [facility] Comment on above: Performed By: #### C MP ####[facility] [address]zcktymae[address] [place], [place] [address]Dr. Airam Tripathi Globulin (S) [Mass/Vol] 3.0 g/dL Normal [facility] Comment on above: Performed By: #### C MP ####[facility] Lisyleegza[address] [place] [address]Dr. Airam Tripathi Glucose [Mass/Vol] 57 mg/dL Critically low 74-106 [facility] Comment on above: Performed By: #### C MP ####[facility] Hnafmeviiw56[address] [place] [address]Dr. Airam Tripathi Potassium [Moles/Vol] 3.7 mmol/L Normal 3.5-5.1 [facility] Comment on above: Performed By: #### C MP ####[facility] Rhgjjqckec28[address] [place] [address]Dr. Airam Tripathi Protein [Mass/Vol] 6.4 g/dL Normal 6.4-8.2 [facility] Comment on above: Performed By: #### C MP ####[facility] Jiovefkdgq[address] [place], [place] [address]Dr. Airam Tripathi Sodium [Moles/Vol] 133 mmol/L Critically low 136-145 [facility] Comment on above: Performed By: #### C MP ####[facility] Ducwqgusjw[address] [place], [place] [address]Dr. Airam Tripathi Urea nitrogen [Mass/Vol] 39.0 mg/dL Critically high 7.0-18.0 [facility] Comment on above: Performed By: #### C MP ####[facility] Yczaqmsusp[address] [place], [place] [address]Dr. Airam Tripathi Urea nitrogen/Creatinine [Mass ratio] 32.5 mg/mg Normal [facility] Comment on above: Performed By: #### C MP ####[facility] Pkpoiozunl[address] [place], [place] [address]Dr. Airam Tripathi OSMOLALITYon 03-24-2022 Osmolality [Osmolality] 285 mosm/kg Normal 275-295 [facility] Comment on above: Performed By: #### O SMO ####[facility] [address]wc[address]cebj[address] [place], [place] [address]Dr. Airam Tripathi CBC AUTO DIFFon 03-22-2022 BASO # 0.0 103/ul Normal 0.0-0.1 [facility] Comment on above: Performed By: #### C BC ####[facility] Umesolblss[address] [place] [phone]. Airam Tripathi Basophils/100 WBC (Bld) 0.4 % Normal 0.2-2.0 [facility] Comment on above: Performed By: #### C BC ####[facility] Phxyhshdyr[address] [place], [place] [address]Dr. Airam Tripathi EO # 0.2 103/ul Normal 0.0-0.7 [facility] Comment on above: Performed By: #### C BC ####[facility] Yyonrdiwao[address] [place], [place] [address]Dr. Airam Tripathi Eosinophils/100 WBC (Bld) 2.3 % Normal 0.9-7.0 [facility] Comment on above: Performed By: #### C BC ####[facility] Mqqczdywnr[address] [place], [place] [address]Dr. Airam Tripathi Erythrocyte distribution width (RBC) [Ratio] 13.9 % Normal 11.0-15.0 [facility] Comment on above: Performed By: #### C BC ####[facility] Jqemyikwyt[address] [place], [place] [address]Dr. Airam Tripathi Hematocrit (Bld) [Volume fraction] 32.6 % Critically low 36.0-48.0 [facility] Comment on above: Performed By: #### C BC ####[facility] [address]qffbmo[address] [address] [place], [place] [address]Dr. Airam Tripathi Hemoglobin (Bld) [Mass/Vol] 10.3 g/dL Critically low 12.0-16.0 [facility] Comment on above: Performed By: #### C BC ####[facility] Guhsxtyvtp[address] [place], [place] [address]Dr. Airam Tripathi IG # 0.11 10e3/ul Critically high 0.00-0.03 [facility] Comment on above: Performed By: #### C BC ####[facility] Kxejhslbfk9[address] [place], [place] [address]Dr. Airam Tripathi IG % 1.4 % Critically high 0.0-0.5 [facility] Comment on above: Performed By: #### C BC ####[facility] Nx[address]yxgbfb[address] [place] [address]Dr. Airam Deuce LYMPH # 1.3 103/ul Normal 1.2-3.8 [facility] Comment on above: Performed By: #### C BC ####[facility] Txospqnwqe15[address] [place] [address]Dr. Airam Tripathi Lymphocytes/100 WBC (Bld) 15.9 % Critically low 20.5-60.0 [facility] Comment on above: Performed By: #### C BC ####[facility] Bofnkhendn38[address] [place] [address]DrKianna Tripathi MANUAL DIFF REQ NO Normal [facility] Comment on above: Performed By: #### C BC ####[facility] Aibdsjadca[address] [place], [place] [address]Dr. Airam Tripathi MCH (RBC) [Entitic mass] 30.7 pg Normal 26.7-34.0 [facility] Comment on above: Performed By: #### C BC ####[facility] Jwzqtyhdtn[address] [place], [place] [address]Dr. Selenaneil Tripathi MCHC (RBC) [Mass/Vol] 31.6 g/dL Normal 29.9-35.2 [facility] Comment on above: Performed By: #### C BC ####[facility] Qwqyjetlja[address] [place], [place] [address]DrKianna Tripathi MCV (RBC) [Entitic vol] 97.0 fL Normal 81.0-99.0 [facility] Comment on above: Performed By: #### C BC ####[facility] Bocqwfuorh85[address] [place], [place] [address]DrKianna Tripathi MONO # 0.6 103/ul Normal 0.3-0.8 [facility] Comment on above: Performed By: #### C BC ####[facility] Ngovrnunfy01[address] [place] [address]Dr. Airam Tripathi Monocytes/100 WBC (Bld) 6.9 % Normal 1.7-12.0 [facility] Comment on above: Performed By: #### C BC ####[facility] Mpsclhnvrr[address] [place] [address]Dr. Airam Tripathi NEUT # 5.9 103/ul Normal 1.4-6.5 [facility] Comment on above: Performed By: #### C BC ####[facility] Dowbhrpgid7[address] [place] [id number] Waltersneil Deuce Neutrophils/100 WBC (Bld) 73.1 % Normal 43.0-75.0 [facility] Comment on above: Performed By: #### C BC ####[facility] Kgfpctrbcp87[address] [place] [address]Dr. Airam Tripathi Platelet mean volume (Bld) [Entitic vol] 9.5 fL Normal 9.5-13.5 [facility] Comment on above: Performed By: #### C BC ####[facility] Mreqrmgjmg3055 [place] [address]Dr. Airam Deuce PLT 313 103/ul Normal 150-450 [facility] Comment on above: Performed By: #### C BC ####[facility] Hvchpjzutg8[address] [place], [place] [address]DrKianna Tripathi RBC 3.36 106/ul Critically low 4.20-5.40 [facility] Comment on above: Performed By: #### C BC ####[facility] Vslycoagji6944 [place] [address]DrKianna Tripathi WBC 8.1 103/ul Normal 4.0-11.0 [facility] Comment on above: Performed By: #### C BC ####[facility] Frnktixgqf8057 [place] [phone] Tripathi PROF 14(COMP METB)on 022 Albumin [Mass/Vol] 3.3 g/dL Critically low 3.4-5.0 [facility] Comment on above: Performed By: #### C MP ####[facility] Wsnqmemrdu9653 [place] [address]DrKianna Tripathi Albumin/Globulin [Mass ratio] 1.0 {ratio} Normal [facility] Comment on above: Performed By: #### C MP ####[facility] Mzkhigtomd4774 [place] [address]Dr. Airam Deuce ALP [Catalytic activity/Vol] 113 U/L Normal 46-116 [facility] Comment on above: Performed By: #### C MP ####[facility] Ytphtibhvz6504 [place] [address]Dr. Selenaneil Deuce ALT [Catalytic activity/Vol] 21 U/L Normal 14-59 [facility] Comment on above: Performed By: #### C MP ####[facility] Gszzibyocn[address] [place], [place] [address]Dr. Airam Tripathi Anion gap [Moles/Vol] 12.2 mmol/L Normal Th [facility] Comment on above: Performed By: #### C MP ####[facility] Sbfguzayhw[address] [place], [place] [address]Dr. Airam Tripathi AST [Catalytic activity/Vol] 21 U/L Normal 15-37 [facility] Comment on above: Performed By: #### C MP ####[facility] Rfoefxxegn38[address] [place], [place] [address]Dr. Airam Tripathi Bilirubin [Mass/Vol] 0.2 mg/dL Normal 0.2-1.0 [facility] Comment on above: Performed By: #### C MP ####[facility] Drjqgxfjex77360[address] [place], [place] [address]Dr. iAram Tripathi Calcium [Mass/Vol] 8.4 mg/dL Critically low 8.5-10.1 [facility] Comment on above: Performed By: #### C MP ####[facility] Sjyagthyth[address] [place], [place] [address]Dr. Airam Tripathi Chloride [Moles/Vol] 103 mmol/L Normal 98-107 [facility] Comment on above: Performed By: #### C MP ####[facility] Pkrrdmwaxk337[address] [place], [place] [address]Dr. Airam Tripathi CO2 [Moles/Vol] 24.4 mmol/L Normal 21.0-32.0 [facility] Comment on above: Performed By: #### C MP ####[facility] Fgirahpncj9098 [place] [address]Dr. Airam Tripathi Creatinine [Mass/Vol] 1.11 mg/dL Critically high 0.55-1.02 [facility] Comment on above: Performed By: #### C MP ####[facility] Pyuwesgdpj6546 [place] [address]Dr. Airam Deuce EGFR-AF GUAMANIAN >60 Normal >=60 [facility] Comment on above: Performed By: #### C MP ####[facility] Wkedolsyld4150 [place] [address]Dr. Airam Deuce EGFR-NON AF GUAMANIAN 50 mL/min/1.73m2 Critically low >=60 [facility] Comment on above: Performed By: #### C MP ####[facility] Eadjppyuhk398[address] [place], [place] [address]Dr. Selenaneil Tripathi Globulin (S) [Mass/Vol] 3.2 g/dL Normal [facility] Comment on above: Performed By: #### C MP ####[facility] Kpcctpfkyu[address] [place], [place] [address]Dr. Airam Deuce Glucose [Mass/Vol] 84 mg/dL Normal 74-106 [facility] Comment on above: Performed By: #### C MP ####[facility] Afvtmlorrb88360[address] [place], [place] [address]Dr. Airam Tripathi Potassium [Moles/Vol] 4.6 mmol/L Normal 3.5-5.1 [facility] Comment on above: Performed By: #### C MP ####[facility] Nhfbspmtyr8[address] [place], [place] [address]Dr. Airam Tripathi Protein [Mass/Vol] 6.5 g/dL Normal 6.4-8.2 [facility] Comment on above: Performed By: #### C MP ####[facility] Ngliawtjda674[address] [place], [place] [address]Dr. Airam Tripathi Sodium [Moles/Vol] 135 mmol/L Critically low 136-145 [facility] Comment on above: Performed By: #### C MP ####[facility] Wcbhniypqh9943 [place] [address]Dr. Airam Tripathi Urea nitrogen [Mass/Vol] 39.0 mg/dL Critically high 7.0-18.0 [facility] Comment on above: Performed By: #### C MP ####[facility] Cfngrcteux[address] [place], [place] [address]Dr. Airam Tripathi Urea nitrogen/Creatinine [Mass ratio] 35.1 mg/mg Normal [facility] Comment on above: Performed By: #### C MP ####[facility] Vkpvxqdyfy75[address] [place], [place] [address]Dr. Airam Tripathi OSMOLALITYon 03-17-2022 Osmolality [Osmolality] 277 mosm/kg Normal 275-295 [facility] Comment on above: Performed By: #### O SMO ####[facility] Youluykhlk653[address] [place], [place] [address]Dr. Airam Tripathi CBC AUTO DIFFon 03-15-2022 BASO # 0.0 103/ul Normal 0.0-0.1 [facility] Comment on above: Performed By: #### C BC ####[facility] Bakjcgkoxw[address] [place], [place] [address]Dr. Airam Tripathi Basophils/100 WBC (Bld) 0.4 % Normal 0.2-2.0 [facility] Comment on above: Performed By: #### C BC ####[facility] Rahyrxwtvk120[address] [place], [place] [address]Dr. Airam Tripathi EO # 0.1 103/ul Normal 0.0-0.7 [facility] Comment on above: Performed By: #### C BC ####[facility] Jhqdybdipe[address] [place], [place] [address]Dr. Airam Tripathi Eosinophils/100 WBC (Bld) 2.4 % Normal 0.9-7.0 [facility] Comment on above: Performed By: #### C BC ####[facility] Bdaffkbqvi09[address] [place], [place] [address]Dr. Airam Tripathi Erythrocyte distribution width (RBC) [Ratio] 13.9 % Normal 11.0-15.0 [facility] Comment on above: Performed By: #### C BC ####[facility] Nwiqarmsrp3643 [place] [address]DrKianna Airam Tripathi Hematocrit (Bld) [Volume fraction] 31.2 % Critically low 36.0-48.0 [facility] Comment on above: Performed By: #### C BC ####[facility] Etbtadxkka7042 [place] [address]DrKianna Tripathi Hemoglobin (Bld) [Mass/Vol] 9.9 g/dL Critically low 12.0-16.0 [facility] Comment on above: Performed By: #### C BC ####[facility] Gmtiibjvnt[address] [place], [place] [address]DrKianna Tripathi IG # 0.03 10e3/ul Normal 0.00-0.03 [facility] Comment on above: Performed By: #### C BC ####[facility] Missbpnagj[address] [place], [place] [address]DrKianna Tripathi IG % 0.6 % Critically high 0.0-0.5 [facility] Comment on above: Performed By: #### C BC ####[facility] Ciddjtboob[address] [place], [place] [address]DrKianna Tripathi LYMPH # 1.5 103/ul Normal 1.2-3.8 [facility] Comment on above: Performed By: #### C BC ####[facility] Aojfhgmskk010[address] [place], [place] [address]DrKianna Tripathi Lymphocytes/100 WBC (Bld) 29.4 % Normal 20.5-60.0 [facility] Comment on above: Performed By: #### C BC ####[facility] Dqkdauwztr[address] [place], [place] [address]DrKianna Tripathi MANUAL DIFF REQ NO Normal [facility] Comment on above: Performed By: #### C BC ####[facility] Zhsezszund306[address] [place], [place] [address]DrKianna Tripathi MCH (RBC) [Entitic mass] 30.5 pg Normal 26.7-34.0 [facility] Comment on above: Performed By: #### C BC ####[facility] Vukagizhnf84[address] [place] [phone]. Airam Deuce MCHC (RBC) [Mass/Vol] 31.7 g/dL Normal 29.9-35.2 [facility] Comment on above: Performed By: #### C BC ####[facility] Qrkbrpxpfp7119 [place] [phone] Tripathi MCV (RBC) [Entitic vol] 96.0 fL Normal 81.0-99.0 [facility] Comment on above: Performed By: #### C BC ####[facility] Oqcetocpmv[address] [place], [place] [address]DrKianna Tripathi MONO # 0.4 103/ul Normal 0.3-0.8 [facility] Comment on above: Performed By: #### C BC ####[facility] Smclrawtoc7[address] [place], [place] [address]Dr. Airam Tripathi Monocytes/100 WBC (Bld) 7.0 % Normal 1.7-12.0 [facility] Comment on above: Performed By: #### C BC ####[facility] Zcqzozxcwe[address] [place], [place] [address]Dr. Airam Tripathi NEUT # 3.0 103/ul Normal 1.4-6.5 [facility] Comment on above: Performed By: #### C BC ####[facility] Xzuxcolzmc[address] [place], [place] [address]Dr. Airam Tripathi Neutrophils/100 WBC (Bld) 60.2 % Normal 43.0-75.0 [facility] Comment on above: Performed By: #### C BC ####[facility] Bsnqqjvuzf9[address] [place], [place] [address]DrKianna Tripathi Platelet mean volume (Bld) [Entitic vol] 9.6 fL Normal 9.5-13.5 [facility] Comment on above: Performed By: #### C BC ####[facility] Oifzqpexey[address] [place], [place] [address]DrKianna Tripathi PLT 258 103/ul Normal 150-450 [facility] Comment on above: Performed By: #### C BC ####[facility] Gyikyjlfts7550 [place] [phone]. Airam Tripathi RBC 3.25 106/ul Critically low 4.20-5.40 [facility] Comment on above: Performed By: #### C BC ####[facility] Cnyxqxthwb1059 [place] [phone]. Airam Tripathi WBC 5.0 103/ul Normal 4.0-11.0 [facility] Comment on above: Performed By: #### C BC ####[facility] Ymwochdqjw7894 [place] [address]Dr. Airam Tripathi PROF 14(COMP METB)on 022 Albumin [Mass/Vol] 3.3 g/dL Critically low 3.4-5.0 [facility] Comment on above: Performed By: #### C MP ####[facility] Uhukdpbflx7965 [place] [address]Dr. Airam Tripathi Albumin/Globulin [Mass ratio] 1.1 {ratio} Normal [facility] Comment on above: Performed By: #### C MP ####[facility] Zrbfodciyk8028 [place] [address]Dr. Airam Tripathi ALP [Catalytic activity/Vol] 106 U/L Normal 46-116 [facility] Comment on above: Performed By: #### C MP ####[facility] Pgummzouwo0340 [place] [address]Dr. Airam Tripathi ALT [Catalytic activity/Vol] 22 U/L Normal 14-59 [facility] Comment on above: Performed By: #### C MP ####[facility] Mhvspictit0018 [place] [phone]. Airam Tripathi Anion gap [Moles/Vol] 11.4 mmol/L Normal [facility] Comment on above: Performed By: #### C MP ####[facility] Ksuzgmehfu8966 [place] [address]Dr. Airam Tripathi AST [Catalytic activity/Vol] 22 U/L Normal 15-37 [facility] Comment on above: Performed By: #### C MP ####[facility] Iwbibdfvzy4612 [place] [phone]. Airam Tripathi Bilirubin [Mass/Vol] 0.3 mg/dL Normal 0.2-1.0 [facility] Comment on above: Performed By: #### C MP ####[facility] Svmcszyrox6566 [place] [phone]. Airam Tripathi Calcium [Mass/Vol] 8.1 mg/dL Critically low 8.5-10.1 [facility] Comment on above: Performed By: #### C MP ####[facility] Uioooattiw9439[address] [place], [place] [address]Dr. Airam Tripathi Chloride [Moles/Vol] 100 mmol/L Normal 98-107 [facility] Comment on above: Performed By: #### C MP ####[facility] Uagxxywqge176[address] [place], [place] [address]Dr. Airam Tripathi CO2 [Moles/Vol] 25.6 mmol/L Normal 21.0-32.0 [facility] Comment on above: Performed By: #### C MP ####[facility] Megflyzxiv[address] [place], [place] [address]Dr. Airam Tripathi Creatinine [Mass/Vol] 1.21 mg/dL Critically high 0.55-1.02 [facility] Comment on above: Performed By: #### C MP ####[facility] Uneuovjwpy806[address] [place], [place] [address]Dr. Airam Deuce EGFR-AF GUAMANIAN 55 mL/min/1.73m2 Critically low >=60 [facility] Comment on above: Performed By: #### C MP ####[facility] Eoyeemjsoj8949 [place] [phone]. Airam Deuce EGFR-NON AF GUAMANIAN 45 mL/min/1.73m2 Critically low >=60 [facility] Comment on above: Performed By: #### C MP ####[facility] Wdyratxwkl517[address] [place], [place] [address]Dr. Airam Deuce Globulin (S) [Mass/Vol] 3.0 g/dL Normal [facility] Comment on above: Performed By: #### C MP ####[facility] Pmvzcopxir2363 [place] [address]Dr. Airam Tripathi Glucose [Mass/Vol] 84 mg/dL Normal 74-106 [facility] Comment on above: Performed By: #### C MP ####[facility] Iopdkcepyj8189 [place] [address]Dr. Airam Tripathi Potassium [Moles/Vol] 4.0 mmol/L Normal 3.5-5.1 [facility] Comment on above: Performed By: #### C MP ####[facility] Tdubhvbqnr2976 [place] [address]Dr. Airam Tripathi Protein [Mass/Vol] 6.3 g/dL Critically low 6.4-8.2 [facility] Comment on above: Performed By: #### C MP ####[facility] Qmqssctwsl944[address] [place], [place] [address]Dr. Airam Tripathi Sodium [Moles/Vol] 133 mmol/L Critically low 136-145 Th [facility] Comment on above: Performed By: #### C MP ####[facility] Qedfjzrgoo599[address] [place], [place] [address]Dr. Airam Deuce Urea nitrogen [Mass/Vol] 29.0 mg/dL Critically high 7.0-18.0 [facility] Comment on above: Performed By: #### C MP ####[facility] Soscywmcvc148[address] [place], [place] [address]Dr. Airam Deuce Urea nitrogen/Creatinine [Mass ratio] 24.0 mg/mg Normal [facility] Comment on above: Performed By: #### C MP ####[facility] Pvgfpajcsu227[address] [place], [place] [address]Dr. Airam Deuce OSMOLALITYon 03-12-2022 Osmolality [Osmolality] 285 mosm/kg Normal 275-295 [facility] Comment on above: Performed By: #### O SMO ####[facility] Szpfyvmwmh298[address] [place], [place] [address]Dr. Airam Deuce CBC AUTO DIFFon 03-10-2022 BASO # 0.0 103/ul Normal 0.0-0.1 [facility] Comment on above: Performed By: #### C BC ####[facility] Qcflqauhze513[address] [place], [place] [address]Dr. Airam Deuce Basophils/100 WBC (Bld) 0.3 % Normal 0.2-2.0 [facility] Comment on above: Performed By: #### C BC ####[facility] Sbtxmawicu377[address] [place], [place] [address]Dr. Airam Tripathi EO # 0.2 103/ul Normal 0.0-0.7 [facility] Comment on above: Performed By: #### C BC ####[facility] Afwmcbytgc790[address] [place], [place] [address]Dr. Airam Tripathi Eosinophils/100 WBC (Bld) 2.7 % Normal 0.9-7.0 [facility] Comment on above: Performed By: #### C BC ####[facility] Zmvtxaidsk947[address] [place], [place] [address]Dr. Airam Tripathi Erythrocyte distribution width (RBC) [Ratio] 14.4 % Normal 11.0-15.0 [facility] Comment on above: Performed By: #### C BC ####[facility] Jsiefyjavc[address] [place], [place] [address]Dr. Airam Deuce Hematocrit (Bld) [Volume fraction] 32.5 % Critically low 36.0-48.0 [facility] Comment on above: Performed By: #### C BC ####[facility] Cpqejhubgx464[address] [place], [place] [address]Dr. Airam Deuce Hemoglobin (Bld) [Mass/Vol] 10.1 g/dL Critically low 12.0-16.0 [facility] Comment on above: Performed By: #### C BC ####[facility] Hucwbbfznl508[address] [place], [place] [address]Dr. Airam Tripathi IG # 0.03 10e3/ul Normal 0.00-0.03 [facility] Comment on above: Performed By: #### C BC ####[facility] Nuqtxlwovf933[address] [place], [place] [address]Dr. Airam Tripathi IG % 0.4 % Normal 0.0-0.5 [facility] Comment on above: Performed By: #### C BC ####[facility] Ehjuiptbni1627 [place] [address]Dr. Airam Deuce LYMPH # 1.4 103/ul Normal 1.2-3.8 [facility] Comment on above: Performed By: #### C BC ####[facility] Vznlymkfsf8473 [place] [address]Dr. Selenaneil Tripathi Lymphocytes/100 WBC (Bld) 19.4 % Critically low 20.5-60.0 [facility] Comment on above: Performed By: #### C BC ####[facility] Zukdqsemes9[address] [place], [place] [address]Dr. Selenaneil Tripathi MANUAL DIFF REQ NO Normal [facility] Comment on above: Performed By: #### C BC ####[facility] Tuhtlnoaan224[address] [place], [place] [address]Dr. Airam Deuce MCH (RBC) [Entitic mass] 30.6 pg Normal 26.7-34.0 [facility] Comment on above: Performed By: #### C BC ####[facility] Tuglvpnlrx[address] [place], [place] [address]Dr. Airam Tripathi MCHC (RBC) [Mass/Vol] 31.1 g/dL Normal 29.9-35.2 [facility] Comment on above: Performed By: #### C BC ####[facility] Cpeocacdtr[address] [place], [place] [address]Dr. Selenaneil Tripathi MCV (RBC) [Entitic vol] 98.5 fL Normal 81.0-99.0 [facility] Comment on above: Performed By: #### C BC ####[facility] Lfvtnetroj[address] [place], [place] [address]Dr. Airam Tripathi MONO # 0.5 103/ul Normal 0.3-0.8 [facility] Comment on above: Performed By: #### C BC ####[facility] Ygiwkfksrw[address] [place], [place] [address]Dr. Airam Tripathi Monocytes/100 WBC (Bld) 6.7 % Normal 1.7-12.0 [facility] Comment on above: Performed By: #### C BC ####[facility] Mzdopsnxgq8671 [place] [address]Dr. Selenaneil Tripathi NEUT # 5.2 103/ul Normal 1.4-6.5 [facility] Comment on above: Performed By: #### C BC ####[facility] Lcpzfnyvec0537 [place] [address]Dr. Airam Tripathi Neutrophils/100 WBC (Bld) 70.5 % Normal 43.0-75.0 [facility] Comment on above: Performed By: #### C BC ####[facility] Jmmvwtfqep6686 [place] [address]Dr. Airam Tripathi Platelet mean volume (Bld) [Entitic vol] 9.8 fL Normal 9.5-13.5 [facility] Comment on above: Performed By: #### C BC ####[facility] Jpdhdzrkxd411[address] [place], [place] [address]Dr. Airam Tripathi PLT 277 103/ul Normal 150-450 [facility] Comment on above: Performed By: #### C BC ####[facility] Qznzukefty[address] [place], [place] [address]Dr. Airam Tripathi RBC 3.30 106/ul Critically low 4.20-5.40 [facility] Comment on above: Performed By: #### C BC ####[facility] Hvmkdsjgkm64[address] [place], [place] [address]Dr. Airam Tripathi WBC 7.4 103/ul Normal 4.0-11.0 [facility] Comment on above: Performed By: #### C BC ####[facility] Gqcuiswnus7284 [place] [phone] Tripathi PROF 14(COMP METB)on 022 Albumin [Mass/Vol] 3.6 g/dL Normal 3.4-5.0 [facility] Comment on above: Performed By: #### C MP ####[facility] Jmtgnmswaz[address] [place], [place] [address]DrKianna Tripathi Albumin/Globulin [Mass ratio] 1.1 {ratio} Normal [facility] Comment on above: Performed By: #### C MP ####[facility] Qoiaxgtfzo0176 [place] [address]Dr. Airam Tripathi ALP [Catalytic activity/Vol] 112 U/L Normal 46-116 [facility] [place] Comment on above: Performed By: #### C MP ####[facility] Abfcwxback[address] [place] [address]Dr. Airam Deuce ALT [Catalytic activity/Vol] 26 U/L Normal 14-59 [facility] [place] Comment on above: Performed By: #### C MP ####[facility] Pqyxzyocjj[address] [place], [place] [address]Dr. Airam Tripathi Anion gap [Moles/Vol] 12.0 mmol/L Normal [facility] Comment on above: Performed By: #### C MP ####[facility] Qjcebiigqy[address] [place], [place] [address]Dr. Selenaneil Tripathi AST [Catalytic activity/Vol] 25 U/L Normal 15-37 [facility] [place] Comment on above: Performed By: #### C MP ####[facility] Ubtilaizqj46[address] [place], [place] [address]Dr. Selenaneil Deuce Bilirubin [Mass/Vol] 0.4 mg/dL Normal 0.2-1.0 [facility] [place] Comment on above: Performed By: #### C MP ####[facility] Zagepsvwwj312[address] [place], [place] [address]Dr. Airam Tripathi Calcium [Mass/Vol] 8.9 mg/dL Normal 8.5-10.1 [facility] Comment on above: Performed By: #### C MP ####[facility] Jhbksiuohj[address] [place], [place] [address]Dr. Airam Tripathi Chloride [Moles/Vol] 101 mmol/L Normal 98-107 [facility] Comment on above: Performed By: #### C MP ####[facility] Iavlslzioj8[address] [place], [place] [address]Dr. Airma Tripathi CO2 [Moles/Vol] 24.0 mmol/L Normal 21.0-32.0 [facility] Comment on above: Performed By: #### C MP ####[facility] Myntoehdeu16[address] [place] [id number]. Airam Tripathi Creatinine [Mass/Vol] 1.51 mg/dL Critically high 0.55-1.02 [facility] [place] Comment on above: Performed By: #### C MP ####[facility] Ganizhuupj[address] [place] [phone]. Airam Tripathi EGFR-AF GUAMANIAN 43 mL/min/1.73m2 Critically low >=60 [facility] [place] Comment on above: Performed By: #### C MP ####[facility] Jcmtfptaxq3058 [place] [phone]. Airam Deuce EGFR-NON AF GUAMANIAN 35 mL/min/1.73m2 Critically low >=60 [facility] [place] Comment on above: Performed By: #### C MP ####[facility] Auybskmktp080[address] [place] [address]Dr. Airam Triptahi Globulin (S) [Mass/Vol] 3.2 g/dL Normal [facility] [place] Comment on above: Performed By: #### C MP ####[facility] Kmvzxqzmob0058 [place] [address]Dr. Airam Tripathi Glucose [Mass/Vol] 82 mg/dL Normal 74-106 [facility] [place] Comment on above: Performed By: #### C MP ####[facility] Fikqtrwduy09[address] [place] [address]Dr. Airam Tripathi Potassium [Moles/Vol] 4.0 mmol/L Normal 3.5-5.1 [facility] Comment on above: Performed By: #### C MP ####[facility] Eprapvbjeb6607 [place] [phone]. Airam Tripathi Protein [Mass/Vol] 6.8 g/dL Normal 6.4-8.2 [facility] Comment on above: Performed By: #### C MP ####[facility] Qnxjzbijux9340 [place] [address]Dr. Airam Tripathi Sodium [Moles/Vol] 133 mmol/L Critically low 136-145 [facility] Comment on above: Performed By: #### C MP ####[facility] Iwlkxlkwdp4680 [place] [address]Dr. Airam Tripathi Urea nitrogen [Mass/Vol] 37.0 mg/dL Critically high 7.0-18.0 [facility] [place] Comment on above: Performed By: #### C MP ####[facility] Rbjadlinmb[address] [place], [place] [address]Dr. Airam Tripathi Urea nitrogen/Creatinine [Mass ratio] 24.5 mg/mg Normal [facility] [place] Comment on above: Performed By: #### C MP ####[facility] Bypzjzyctz7[address] [place], [place] [address]Dr. Airam Tripathi OSMOLALITYon 03-07-2022 Osmolality [Osmolality] 284 mosm/kg Normal 275-295 [facility] [place] Comment on above: Performed By: #### O SMO ####[facility] Fuacolzhwc[address] [place], [place] [address]Dr. Airam Tripathi CBC AUTO DIFFon 03-04-2022 BASO # 0.0 103/ul Normal 0.0-0.1 [facility] [place] Comment on above: Performed By: #### C BC ####[facility] Xpugupjido833[address] [place], [place] [address]Dr. Airam Tripathi Basophils/100 WBC (Bld) 0.3 % Normal 0.2-2.0 [facility] [place] Comment on above: Performed By: #### C BC ####[facility] Jwyittlalx19[address] [place], [place] [address]Dr. Airam Tripathi EO # 0.1 103/ul Normal 0.0-0.7 [facility] Comment on above: Performed By: #### C BC ####[facility] Fqlnymipfy335[address] [place], [place] [address]Dr. Airam Deuce Eosinophils/100 WBC (Bld) 2.0 % Normal 0.9-7.0 [facility] Comment on above: Performed By: #### C BC ####[facility] Yestxkkylu325[address] [place], [place] [address]Dr. Airam Tripathi Erythrocyte distribution width (RBC) [Ratio] 14.5 % Normal 11.0-15.0 [facility] [place] Comment on above: Performed By: #### C BC ####[facility] Dhveejyboc0695 [place] [address]Dr. Airam Tripathi Hematocrit (Bld) [Volume fraction] 35.4 % Critically low 36.0-48.0 [facility] [place] Comment on above: Performed By: #### C BC ####[facility] Ctbgtgbkyy1614 [place] [address]DrKianna Tripathi Hemoglobin (Bld) [Mass/Vol] 11.0 g/dL Critically low 12.0-16.0 [facility] Comment on above: Performed By: #### C BC ####[facility] Zxbsqmoakd85[address] [place], [place] [address]DrKianna Tripathi IG # 0.03 10e3/ul Normal 0.00-0.03 [facility] Comment on above: Performed By: #### C BC ####[facility] Vngpjprnif[address] [place], [place] [address]Dr. Airam Tripathi IG % 0.4 % Normal 0.0-0.5 [facility] Comment on above: Performed By: #### C BC ####[facility] Ikupvdcgvk144[address] [place], [place] [address]DrKianna Tripathi LYMPH # 1.7 103/ul Normal 1.2-3.8 [facility] Comment on above: Performed By: #### C BC ####[facility] Bketzeyvgy740[address] [place], [place] [address]DrKianna Tripathi Lymphocytes/100 WBC (Bld) 23.8 % Normal 20.5-60.0 [facility] Comment on above: Performed By: #### C BC ####[facility] Rtsocxrjlp8[address] [place], [place] [address]DrKianna Tripathi MANUAL DIFF REQ NO Normal [facility] [place] Comment on above: Performed By: #### C BC ####[facility] Noqpjrtykw470[address] [place], [place] [address]Dr. Airam Tripathi MCH (RBC) [Entitic mass] 30.0 pg Normal 26.7-34.0 [facility] Comment on above: Performed By: #### C BC ####[facility] Ylfkylqghg9667 [place] [address]Dr. Airam Tripathi MCHC (RBC) [Mass/Vol] 31.1 g/dL Normal 29.9-35.2 [facility] [place] Comment on above: Performed By: #### C BC ####[facility] Qxwpaijtxj4074 [place] [address]Dr. Airam Tripathi MCV (RBC) [Entitic vol] 96.5 fL Normal 81.0-99.0 [facility] Comment on above: Performed By: #### C BC ####[facility] Yxlnhiyald978[address] [place], [place] [address]Dr. Airam Tripathi MONO # 0.5 103/ul Normal 0.3-0.8 [facility] Comment on above: Performed By: #### C BC ####[facility] Hwtjasnlsk[address] [place], [place] [address]Dr. Airam Tripathi Monocytes/100 WBC (Bld) 6.6 % Normal 1.7-12.0 [facility] Comment on above: Performed By: #### C BC ####[facility] Qubmdgozzd8[address] [place], [place] [address]Dr. Airam Tripathi NEUT # 4.7 103/ul Normal 1.4-6.5 [facility] Comment on above: Performed By: #### C BC ####[facility] Auayvzznyo[address] [place], [place] [address]Dr. Airam Tripathi Neutrophils/100 WBC (Bld) 66.9 % Normal 43.0-75.0 [facility] Comment on above: Performed By: #### C BC ####[facility] Pknmzfzogz[address] [place], [place] [address]Dr. Airam Tripathi Platelet mean volume (Bld) [Entitic vol] 10.2 fL Normal 9.5-13.5 [facility] Comment on above: Performed By: #### C BC ####[facility] Nczizbviat409[address] [place], [place] [address]Dr. Airam Tripathi PLT 270 103/ul Normal 150-450 [facility] [place] Comment on above: Performed By: #### C BC ####[facility] Nbdvqkwqih[address] [place] [address]Dr. Selenaneil Deuce RBC 3.67 106/ul Critically low 4.20-5.40 [facility] [place] Comment on above: Performed By: #### C BC ####[facility] Afhllqjxqc5240 [place] [phone]. Airam Tripathi WBC 7.0 103/ul Normal 4.0-11.0 [facility] [place] Comment on above: Performed By: #### C BC ####[facility] Ihnfhhchji9345 [place] [address]DrKianna Tripathi PROF 14(COMP METB)on 022 Albumin [Mass/Vol] 3.3 g/dL Critically low 3.4-5.0 [facility] Comment on above: Performed By: #### C MP ####[facility] Bgatgezjod1876 [place] [address]DrKianna Tripathi Albumin/Globulin [Mass ratio] 1.0 {ratio} Normal [facility] [place] Comment on above: Performed By: #### C MP ####[facility] Xuvfztdyoc0338 [place] [address]DrKianna Tripathi ALP [Catalytic activity/Vol] 107 U/L Normal 46-116 [facility] [place] Comment on above: Performed By: #### C MP ####[facility] Orcfgizybk2669 [place] [address]DrKianna Tripathi ALT [Catalytic activity/Vol] 23 U/L Normal 14-59 [facility] [place] Comment on above: Performed By: #### C MP ####[facility] Telidmzcao6823 [place] [phone] Tripathi Anion gap [Moles/Vol] 13.0 mmol/L Normal [facility] Comment on above: Performed By: #### C MP ####[facility] Wekmtufkqh8290 [place] [address]Dr. Airam Tripathi AST [Catalytic activity/Vol] 30 U/L Normal 15-37 [facility] [place] Comment on above: Performed By: #### C MP ####[facility] Jgrzdfeeaf1244 [place] [address]Dr. Airam Tripathi Bilirubin [Mass/Vol] 0.2 mg/dL Normal 0.2-1.0 [facility] [place] Comment on above: Performed By: #### C MP ####[facility] Afjltvfwaq6131 [place] [address]Dr. Airam Tripathi Calcium [Mass/Vol] 8.8 mg/dL Normal 8.5-10.1 [facility] Comment on above: Performed By: #### C MP ####[facility] Qtsyqksqtq480[address] [place], [place] [address]Dr. Airam Tripathi Chloride [Moles/Vol] 103 mmol/L Normal 98-107 [facility] Comment on above: Performed By: #### C MP ####[facility] Xldqolflyn[address] [place], [place] [address]Dr. Airam Tripathi CO2 [Moles/Vol] 24.9 mmol/L Normal 21.0-32.0 [facility] Comment on above: Performed By: #### C MP ####[facility] Rgewqdhekm034[address] [place], [place] [address]Dr. Airam Tripathi Creatinine [Mass/Vol] 1.06 mg/dL Critically high 0.55-1.02 [facility] [place] Comment on above: Performed By: #### C MP ####[facility] Plsuncbifs[address] [place], [place] [address]Dr. Airam Deuce EGFR-AF GUAMANIAN >60 Normal >=60 [facility] Comment on above: Performed By: #### C MP ####[facility] Hncdhykmam479[address] [place], [place] [address]Dr. Selenaneil Deuce EGFR-NON AF GUAMANIAN 53 mL/min/1.73m2 Critically low >=60 [facility] Comment on above: Performed By: #### C MP ####[facility] Gwdgbbalnq[address] [place], [place] [address]Dr. Airam Tripathi Globulin (S) [Mass/Vol] 3.2 g/dL Normal [facility] [place] Comment on above: Performed By: #### C MP ####[facility] Xvxoucejln8789 [place] [address]Dr. Airam Tripathi Glucose [Mass/Vol] 91 mg/dL Normal 74-106 [facility] Comment on above: Performed By: #### C MP ####[facility] Bnsavttvnn9412 [place] [address]Dr. Airam Tripathi Potassium [Moles/Vol] 3.9 mmol/L Normal 3.5-5.1 [facility] [place] Comment on above: Performed By: #### C MP ####[facility] Lfieuvrdwk1727 [place] [address]Dr. Airam Rtipathi Protein [Mass/Vol] 6.5 g/dL Normal 6.4-8.2 [facility] [place] Comment on above: Performed By: #### C MP ####[facility] Pktqwvthxd464[address] [place], [place] [address]Dr. Airam Deuce Sodium [Moles/Vol] 137 mmol/L Normal 136-145 [facility] Comment on above: Performed By: #### C MP ####[facility] Iiwxqtkqcd126[address] [place], [place] [address]Dr. Airam Deuce Urea nitrogen [Mass/Vol] 27.0 mg/dL Critically high 7.0-18.0 [facility] [place] Comment on above: Performed By: #### C MP ####[facility] Kzldgtowlq8903 [place] [address]Dr. Selenaneil Deuce Urea nitrogen/Creatinine [Mass ratio] 25.5 mg/mg Normal [facility] Comment on above: Performed By: #### C MP ####[facility] Whzzdlspov4098 [place] [address]Dr. Selenaneil Deuce OSMOLALITYon 03-03-2022 Osmolality [Osmolality] 383 mosm/kg Invalid Interpretation Code [id number] [facility] Comment on above: Result Comment: Ve rified by repeat analysis Performed By: #### O SMO ####[facility] Jlmxthtnym[address] [place], [place] [address]Dr. Airam Tripathi CBC AUTO DIFFon 02-22-2022 BASO # 0.0 103/ul Normal 0.0-0.1 [facility] Comment on above: Performed By: #### C BC ####[facility] Wjwebyromu8966 [place] [address]DrKianna Tripathi Basophils/100 WBC (Bld) 0.4 % Normal 0.2-2.0 [facility] Comment on above: Performed By: #### C BC ####[facility] Huwrjnrfrv58[address] [place], [place] [address]DrKianna Tripathi EO # 0.2 103/ul Normal 0.0-0.7 [facility] Comment on above: Performed By: #### C BC ####[facility] Rxqhdpwrny713[address] [place], [place] [address]DrKianna Tripathi Eosinophils/100 WBC (Bld) 3.9 % Normal 0.9-7.0 [facility] Comment on above: Performed By: #### C BC ####[facility] Rofclkcuyd728[address] [place], [place] [address]DrKianna Tripathi Erythrocyte distribution width (RBC) [Ratio] 13.9 % Normal 11.0-15.0 [facility] Comment on above: Performed By: #### C BC ####[facility] Njpptnprwp497[address] [place], [place] [address]DrKianna Tripathi Hematocrit (Bld) [Volume fraction] 32.7 % Critically low 36.0-48.0 [facility] Comment on above: Performed By: #### C BC ####[facility] Koiktvkans486[address] [place], [place] [address]DrKianna Tripathi Hemoglobin (Bld) [Mass/Vol] 10.7 g/dL Critically low 12.0-16.0 [facility] Comment on above: Performed By: #### C BC ####[facility] Dxmrwlssay8[address] [place], [place] [address]DrKianna Tripathi IG # 0.02 10e3/ul Normal 0.00-0.03 [facility] Comment on above: Performed By: #### C BC ####[facility] Qcpjwtygol637[address] [place], [place] [address]Dr. Airam Tripathi IG % 0.4 % Normal 0.0-0.5 [facility] [place] Comment on above: Performed By: #### C BC ####[facility] Uqoiyksoiq6139 [place] [address]DrKianna Tripathi LYMPH # 1.2 103/ul Normal 1.2-3.8 [facility] Comment on above: Performed By: #### C BC ####[facility] Dlndpjbkcv0551 [place] [address]DrKianna Tripathi Lymphocytes/100 WBC (Bld) 25.0 % Normal 20.5-60.0 [facility] Comment on above: Performed By: #### C BC ####[facility] Zutpxuyxib27040[address] [place], [place] [address]DrKianna Tripathi MANUAL DIFF REQ NO Normal [facility] [place] Comment on above: Performed By: #### C BC ####[facility] Audfpggbai64[address] [place], [place] [address]DrKianna Tripathi MCH (RBC) [Entitic mass] 30.7 pg Normal 26.7-34.0 [facility] Comment on above: Performed By: #### C BC ####[facility] Uxhggemdnd213[address] [place], [place] [address]DrKianna Tripathi MCHC (RBC) [Mass/Vol] 32.7 g/dL Normal 29.9-35.2 [facility] Comment on above: Performed By: #### C BC ####[facility] Aowdudbkbm[address] [place], [place] [address]DrKianna Tripathi MCV (RBC) [Entitic vol] 93.7 fL Normal 81.0-99.0 [facility] Comment on above: Performed By: #### C BC ####[facility] Hqvsgklcwp364[address] [place], [place] [address]DrKianna Tripathi MONO # 0.4 103/ul Normal 0.3-0.8 [facility] Comment on above: Performed By: #### C BC ####[facility] Dmyxbdmckr9[address] [place], [place] [address]DrKianna Tripathi Monocytes/100 WBC (Bld) 7.5 % Normal 1.7-12.0 [facility] [place] Comment on above: Performed By: #### C BC ####[facility] Hhvhkawkud5004 [place] [address]Dr. Airam Tripathi NEUT # 3.1 103/ul Normal 1.4-6.5 [facility] [place] Comment on above: Performed By: #### C BC ####[facility] Zzzjzkjpqm2118 [place] [address]DrKianna Airam Deuce Neutrophils/100 WBC (Bld) 62.8 % Normal 43.0-75.0 [facility] [place] Comment on above: Performed By: #### C BC ####[facility] Xzliidslkl7668 [place] [address]DrKianna Waltersneil Deuce Platelet mean volume (Bld) [Entitic vol] 9.5 fL Normal 9.5-13.5 [facility] [place] Comment on above: Performed By: #### C BC ####[facility] Uzrjignlcy864[address] [place], [place] [address]Dr. Airam Deuce PLT 250 103/ul Normal 150-450 [facility] [place] Comment on above: Performed By: #### C BC ####[facility] Gmpegejxkg426[address] [place], [place] [address]Dr. Airam Deuce RBC 3.49 106/ul Critically low 4.20-5.40 [facility] [place] Comment on above: Performed By: #### C BC ####[facility] Jcnwtytxir[address] [place], [place] [address]DrKianna Tripathi WBC 4.9 103/ul Normal 4.0-11.0 [facility] [place] Comment on above: Performed By: #### C BC ####[facility] Tlnhoojoct6139 [place] [address]DrKianna Tripathi PROF 14(COMP METB)on 022 Albumin [Mass/Vol] 3.3 g/dL Critically low 3.4-5.0 [facility] Comment on above: Performed By: #### C MP ####[facility] Xmietntgre8[address] [place], [place] [address]DrKianna Tripathi Albumin/Globulin [Mass ratio] 1.0 {ratio} Normal [facility] [place] Comment on above: Performed By: #### C MP ####[facility] Soctasgxdo7361 [place] [address]Dr. Airam Deuce ALP [Catalytic activity/Vol] 127 U/L Critically high 46-116 [facility] [place] Comment on above: Performed By: #### C MP ####[facility] Zfdswbbkgv2967 [place] [address]Dr. Airam Deuce ALT [Catalytic activity/Vol] 22 U/L Normal 14-59 [facility] [place] Comment on above: Performed By: #### C MP ####[facility] Wntlbuigrd9420 [place] [address]Dr. Selenaneil Deuce Anion gap [Moles/Vol] 11.9 mmol/L Normal [facility] Comment on above: Performed By: #### C MP ####[facility] Qivdycepof09[address] [place], [place] [address]Dr. Airam Deuce AST [Catalytic activity/Vol] 21 U/L Normal 15-37 [facility] [place] Comment on above: Performed By: #### C MP ####[facility] Etdpfpbmyp[address] [place], [place] [address]Dr. Airam Deuce Bilirubin [Mass/Vol] 0.3 mg/dL Normal 0.2-1.0 [facility] [place] Comment on above: Performed By: #### C MP ####[facility] Qbkqzlancb4822 [place] [address]Dr. Airam Tripathi Calcium [Mass/Vol] 8.6 mg/dL Normal 8.5-10.1 [facility] Comment on above: Performed By: #### C MP ####[facility] Ervwoghhyy3250 [place] [address]Dr. Airam Tripathi Chloride [Moles/Vol] 105 mmol/L Normal 98-107 [facility] Comment on above: Performed By: #### C MP ####[facility] Xuhdstnjxv9415 [place] [address]Dr. Airam Tripathi CO2 [Moles/Vol] 23.6 mmol/L Normal 21.0-32.0 [facility] [place] Comment on above: Performed By: #### C MP ####[facility] Zwljokdedj7003 [place] [address]Dr. Airam Deuce Creatinine [Mass/Vol] 1.29 mg/dL Critically high 0.55-1.02 [facility] [place] Comment on above: Performed By: #### C MP ####[facility] Aedyzdncqe8808 [place] [address]Dr. Airam Deuce EGFR-AF GUAMANIAN 51 mL/min/1.73m2 Critically low >=60 [facility] Comment on above: Performed By: #### C MP ####[facility] Bzjvxnsomv3247 [place] [address]Dr. Airam Tripathi EGFR-NON AF GUAMANIAN 42 mL/min/1.73m2 Critically low >=60 [facility] Comment on above: Performed By: #### C MP ####[facility] Zjtxuklxqr[address] [place], [place] [address]Dr. Selenaneil Tripathi Globulin (S) [Mass/Vol] 3.2 g/dL Normal [facility] Comment on above: Performed By: #### C MP ####[facility] Schzooxmox209[address] [place], [place] [address]Dr. Selenaneil Tripathi Glucose [Mass/Vol] 94 mg/dL Normal 74-106 [facility] Comment on above: Performed By: #### C MP ####[facility] Nukpghyulm39[address] [place], [place] [address]Dr. Airam Tripathi Potassium [Moles/Vol] 3.5 mmol/L Normal 3.5-5.1 [facility] Comment on above: Performed By: #### C MP ####[facility] Runbqxlgry69[address] [place], [place] [address]Dr. Airam Tripathi Protein [Mass/Vol] 6.5 g/dL Normal 6.4-8.2 [facility] Comment on above: Performed By: #### C MP ####[facility] Balhtldqeg[address] [place], [place] [address]Dr. Airam Tripathi Sodium [Moles/Vol] 137 mmol/L Normal 136-145 [facility] Comment on above: Performed By: #### C MP ####[facility] Zjwceusfuo[address] [place], [place] [address]Dr. Airam Deuce Urea nitrogen [Mass/Vol] 37.0 mg/dL Critically high 7.0-18.0 [facility] [place] Comment on above: Performed By: #### C MP ####[facility] Vlxzzpswcu[address] [place], [place] [address]Dr. Airam Deuce Urea nitrogen/Creatinine [Mass ratio] 28.7 mg/mg Normal [facility] [place] Comment on above: Performed By: #### C MP ####[facility] Ztynciclfn[address] [place], [place] [address]Dr. Selenaneil Deuce OSMOLALITYon 02-20-2022 Osmolality [Osmolality] 283 mosm/kg Normal 275-295 [facility] Comment on above: Performed By: #### O SMO ####[facility] Yoybttfgdf[address] [place], [place] [address]Dr. Airam Deuce CBC AUTO DIFFon 02-17-2022 BASO # 0.0 103/ul Normal 0.0-0.1 [facility] Comment on above: Performed By: #### C BC ####[facility] Rwfekbbqmf[address] [place], [place] [address]Dr. Airam Tripathi Basophils/100 WBC (Bld) 0.3 % Normal 0.2-2.0 [facility] Comment on above: Performed By: #### C BC ####[facility] Xleymdysef[address] [place], [place] [address]Dr. Selenaneil eDuce EO # 0.1 103/ul Normal 0.0-0.7 [facility] Comment on above: Performed By: #### C BC ####[facility] Zxygzrekbi7[address] [place], [place] [address]Dr. Airam Tripathi Eosinophils/100 WBC (Bld) 1.6 % Normal 0.9-7.0 [facility] Comment on above: Performed By: #### C BC ####[facility] Ivuuvoqyaj435[address] [place], [place] [address]Dr. Airam Tripathi Erythrocyte distribution width (RBC) [Ratio] 13.4 % Normal 11.0-15.0 [facility] Comment on above: Performed By: #### C BC ####[facility] [address] [place] [address]Dr. Airam Tripathi Hematocrit (Bld) [Volume fraction] 31.4 % Critically low 36.0-48.0 [facility] Comment on above: Performed By: #### C BC ####[facility] Bngwbadqyw[address] [place], [place] [address]Dr. Airam Tripathi Hemoglobin (Bld) [Mass/Vol] 10.0 g/dL Critically low 12.0-16.0 [facility] Comment on above: Performed By: #### C BC ####[facility] Bbjeojgdkb[address] [place], [place] [address]Dr. Airam Tripathi IG # 0.03 10e3/ul Normal 0.00-0.03 [facility] Comment on above: Performed By: #### C BC ####[facility] Vpazcnpyqj[address] [place], [place] [address]Dr. Airam Tripathi IG % 0.4 % Normal 0.0-0.5 [facility] Comment on above: Performed By: #### C BC ####[facility] Zepxtzfgpt[address] [place], [place] [address]DrKianna Airam Tripathi LYMPH # 1.6 103/ul Normal 1.2-3.8 [facility] Comment on above: Performed By: #### C BC ####[facility] Gleoiknqng[address] [place], [place] [address]Dr. Airam Deuce Lymphocytes/100 WBC (Bld) 24.5 % Normal 20.5-60.0 [facility] Comment on above: Performed By: #### C BC ####[facility] Hrjvjbwbch[address] [place], [place] [address]Dr. Airam Deuce MANUAL DIFF REQ NO Normal [facility] Comment on above: Performed By: #### C BC ####[facility] Kfejjueiuj0025[address] [place], [place] [address]Dr. Airam Deuce MCH (RBC) [Entitic mass] 30.2 pg Normal 26.7-34.0 [facility] Comment on above: Performed By: #### C BC ####[facility] [address] [place] [address]Dr. Airam Tripathi MCHC (RBC) [Mass/Vol] 31.8 g/dL Normal 29.9-35.2 [facility] Comment on above: Performed By: #### C BC ####[facility] Daeifjxvlu54[address] [place], [place] [address]DrKianna Tripathi MCV (RBC) [Entitic vol] 94.9 fL Normal 81.0-99.0 [facility] Comment on above: Performed By: #### C BC ####[facility] Tsmqcxkhav82[address] [place], [place] [address]DrKianna Tripathi MONO # 0.4 103/ul Normal 0.3-0.8 [facility] Comment on above: Performed By: #### C BC ####[facility] Aduvmszwtd122[address] [place], [place] [address]Dr. Airam Tripathi Monocytes/100 WBC (Bld) 5.8 % Normal 1.7-12.0 [facility] Comment on above: Performed By: #### C BC ####[facility] Wbubjuoezs9[address] [place], [place] [address]DrKianna Tripathi NEUT # 4.5 103/ul Normal 1.4-6.5 [facility] Comment on above: Performed By: #### C BC ####[facility] Iouubayxsr94[address] [place], [place] [address]DrKianna Tripathi Neutrophils/100 WBC (Bld) 67.4 % Normal 43.0-75.0 [facility] Comment on above: Performed By: #### C BC ####[facility] Okpadgadyo49[address] [place], [place] [address]DrKianna Tripathi Platelet mean volume (Bld) [Entitic vol] 9.6 fL Normal 9.5-13.5 [facility] Comment on above: Performed By: #### C BC ####[facility] Rcgrckiybw627[address] [place], [place] [address]Dr. Airam Tripathi PLT 251 103/ul Normal 150-450 [facility] Comment on above: Performed By: #### C BC ####[facility] [address] [place] [address]Dr. Selenaneil Deuce RBC 3.31 106/ul Critically low 4.20-5.40 [facility] Comment on above: Performed By: #### C BC ####[facility] J[address]unrr[address]zv[address] [place] [address]Dr. Airam Tripathi WBC 6.7 103/ul Normal 4.0-11.0 [facility] Comment on above: Performed By: #### C BC ####[facility] Pcp[address]xiwka[address] [place] [address]DrKianna Tripathi PROF 14(COMP METB)on 022 Albumin [Mass/Vol] 3.5 g/dL Normal 3.4-5.0 [facility] Comment on above: Performed By: #### C MP ####[facility] Tblrbbefnf[address] [place], [place] [address]DrKianna Tripathi Albumin/Globulin [Mass ratio] 1.2 {ratio} Normal [facility] Comment on above: Performed By: #### C MP ####[facility] Dicyjebkyq125[address] [place], [place] [address]Dr. Airam Tripathi ALP [Catalytic activity/Vol] 130 U/L Critically high 46-116 [facility] Comment on above: Performed By: #### C MP ####[facility] Vcrxxkmbth[address] [place], [place] [address]Dr. Airam Tripathi ALT [Catalytic activity/Vol] 18 U/L Normal 14-59 [facility] Comment on above: Performed By: #### C MP ####[facility] M[address]jky[address] [place] [address]Dr. Airam Tripathi Anion gap [Moles/Vol] 14.0 mmol/L Normal [facility] Comment on above: Performed By: #### C MP ####[facility] Cwabzclkha255[address] [place], [place] [address]Dr. Airam Tripathi AST [Catalytic activity/Vol] 20 U/L Normal 15-37 [facility] Comment on above: Performed By: #### C MP ####[facility] Ibjdxqpvez[address] [place] [address]Dr. Airam Tripathi Bilirubin [Mass/Vol] 0.3 mg/dL Normal 0.2-1.0 [facility] Comment on above: Performed By: #### C MP ####[facility] Tins[address] [place] [address]Dr. Airam Deuce Calcium [Mass/Vol] 8.5 mg/dL Normal 8.5-10.1 [facility] Comment on above: Performed By: #### C MP ####[facility] Cmadenowfl[address] [place], [place] [address]Dr. Airam Deuce Chloride [Moles/Vol] 100 mmol/L Normal 98-107 [facility] Comment on above: Performed By: #### C MP ####[facility] Xzbtsdnwfk069[address] [place], [place] [address]Dr. Airam Deuce CO2 [Moles/Vol] 22.7 mmol/L Normal 21.0-32.0 [facility] Comment on above: Performed By: #### C MP ####[facility] Cgadzeqnhg[address] [place], [place] [address]Dr. Airam Deuce Creatinine [Mass/Vol] 1.28 mg/dL Critically high 0.55-1.02 [facility] Comment on above: Performed By: #### C MP ####[facility] Nkvfvznhag418[address] [place], [place] [address]Dr. Airam Deuce EGFR-AF GUAMANIAN 52 mL/min/1.73m2 Critically low >=60 [facility] Comment on above: Performed By: #### C MP ####[facility] Oikkhjqsnf[address] [place], [place] [address]Dr. Selenaneil Deuce EGFR-NON AF GUAMANIAN 43 mL/min/1.73m2 Critically low >=60 [facility] Comment on above: Performed By: #### C MP ####[facility] Oajthrhmqp058[address] [place], [place] [address]Dr. Airam Deuce Globulin (S) [Mass/Vol] 2.9 g/dL Normal [facility] Comment on above: Performed By: #### C MP ####[facility] [address]neudsv[address] [place] [address]Dr. Airam Tripathi Glucose [Mass/Vol] 93 mg/dL Normal 74-106 [facility] Comment on above: Performed By: #### C MP ####[facility] Dofjrdrwfa[address] [place] [address]Dr. Airam Tripathi Potassium [Moles/Vol] 3.7 mmol/L Normal 3.5-5.1 [facility] Comment on above: Performed By: #### C MP ####[facility] Avcmtlywyg8[address] [place], [place] [address]Dr. Airam Tripathi Protein [Mass/Vol] 6.4 g/dL Normal 6.4-8.2 [facility] Comment on above: Performed By: #### C MP ####[facility] Jonvvnaekx376[address] [place], [place] [address]Dr. Airam Tripathi Sodium [Moles/Vol] 133 mmol/L Critically low 136-145 [facility] Comment on above: Performed By: #### C MP ####[facility] Vqbuxoabxx29[address] [place], [place] [address]Dr. Airam Tripathi Urea nitrogen [Mass/Vol] 44.0 mg/dL Critically high 7.0-18.0 [facility] Comment on above: Performed By: #### C MP ####[facility] Hhozvzpdoh[address] [place], [place] [address]Dr. Airam Tripathi Urea nitrogen/Creatinine [Mass ratio] 34.4 mg/mg Normal [facility] Comment on above: Performed By: #### C MP ####[facility] Grsticoust94[address] [place], [place] [address]Dr. Airam Tripathi OSMOLALITYon 02-10-2022 Osmolality [Osmolality] 288 mosm/kg Normal 275-295 [facility] Comment on above: Performed By: #### O SMO ####[facility] Njclodqpra[address] [place], [place] [address]Dr. Airam Tripathi CBC AUTO DIFFon 02-08-2022 BASO # 0.0 103/ul Normal 0.0-0.1 [facility] Comment on above: Performed By: #### C BC ####[facility] Kw[address]lbumnu[address] [place] [address]Dr. Airam Tripathi Basophils/100 WBC (Bld) 0.3 % Normal 0.2-2.0 [facility] Comment on above: Performed By: #### C BC ####[facility] Fexiqenzaf845[address] [place], [place] [address]Dr. Selenaneil Deuce EO # 0.2 103/ul Normal 0.0-0.7 [facility] Comment on above: Performed By: #### C BC ####[facility] Rapopdbpxx758[address] [place], [place] [address]Dr. Airam Deuce Eosinophils/100 WBC (Bld) 2.1 % Normal 0.9-7.0 [facility] Comment on above: Performed By: #### C BC ####[facility] Tyldekwsan[address] [place], [place] [address]Dr. Airam Deuce Erythrocyte distribution width (RBC) [Ratio] 13.4 % Normal 11.0-15.0 [facility] Comment on above: Performed By: #### C BC ####[facility] Hagdzzwuug[address] [place], [place] [address]Dr. Selenaneil Tripathi Hematocrit (Bld) [Volume fraction] 35.1 % Critically low 36.0-48.0 [facility] Comment on above: Performed By: #### C BC ####[facility] Wtfmpvzuun[address] [place], [place] [address]Dr. Selenaneil Deuce Hemoglobin (Bld) [Mass/Vol] 10.9 g/dL Critically low 12.0-16.0 [facility] Comment on above: Performed By: #### C BC ####[facility] Jnrvjxxnza[address] [place], [place] [address]Dr. Airam Tripathi IG # 0.03 10e3/ul Normal 0.00-0.03 [facility] Comment on above: Performed By: #### C BC ####[facility] Vighngvryl69[address] [place], [place] [address]Dr. Airam Tripathi IG % 0.3 % Normal 0.0-0.5 [facility] Comment on above: Performed By: #### C BC ####[facility] Admrhrjjuf[address] [place] [address]DrKianna Selenaneil Tripathi LYMPH # 1.3 103/ul Normal 1.2-3.8 [facility] Comment on above: Performed By: #### C BC ####[facility] Baxbafwlzb[address]175 [place] [address]DrKianna Selenaneil Tripathi Lymphocytes/100 WBC (Bld) 13.1 % Critically low 20.5-60.0 [facility] Comment on above: Performed By: #### C BC ####[facility] Ueaencjneq150[address] [place], [place] [address]DrKianna Selenaneil Tripathi MANUAL DIFF REQ NO Normal [facility] Comment on above: Performed By: #### C BC ####[facility] Usmxwdsmdv8[address] [place], [place] [address]DrKianna Selenaneil Tripathi MCH (RBC) [Entitic mass] 30.4 pg Normal 26.7-34.0 [facility] Comment on above: Performed By: #### C BC ####[facility] Znmrimarqc[address] [place], [place] [address]DrKianna Airam Deuce MCHC (RBC) [Mass/Vol] 31.1 g/dL Normal 29.9-35.2 [facility] Comment on above: Performed By: #### C BC ####[facility] Rebyldbzfe02[address] [place], [place] [address]DrKianna Selenaneil Tripathi MCV (RBC) [Entitic vol] 98.0 fL Normal 81.0-99.0 [facility] Comment on above: Performed By: #### C BC ####[facility] Vpwidqhykk7[address] [place], [place] [address]DrKianna Tripathi MONO # 0.5 103/ul Normal 0.3-0.8 [facility] Comment on above: Performed By: #### C BC ####[facility] Vmmisctqzy096[address] [place], [place] [address]DrKianna Tripathi Monocytes/100 WBC (Bld) 4.7 % Normal 1.7-12.0 [facility] Comment on above: Performed By: #### C BC ####[facility] Jdxtmfhyrt42[address] [place] [address]DrKianna Airam Tripathi NEUT # 7.7 103/ul Critically high 1.4-6.5 [facility] Comment on above: Performed By: #### C BC ####[facility] Ufwxamupjk7[address] [place] [address]DrKianna Airam Tripathi Neutrophils/100 WBC (Bld) 79.5 % Critically high 43.0-75.0 [facility] Comment on above: Performed By: #### C BC ####[facility] Wnoxnjkfbw373[address] [place], [place] [address]DrKianna Airam Deuce Platelet mean volume (Bld) [Entitic vol] 9.6 fL Normal 9.5-13.5 [facility] Comment on above: Performed By: #### C BC ####[facility] Zpfbsanvft85[address] [place], [place] [address]Dr. Airam Deuce PLT 268 103/ul Normal 150-450 [facility] Comment on above: Performed By: #### C BC ####[facility] Xkbptydcjn[address] [place], [place] [address]DrKianna Airam Deuce RBC 3.58 106/ul Critically low 4.20-5.40 [facility] Comment on above: Performed By: #### C BC ####[facility] Ogvdviizoz[address] [place], [place] [address]DrKianna Airam Deuce WBC 9.7 103/ul Normal 4.0-11.0 [facility] Comment on above: Performed By: #### C BC ####[facility] Xtmmdcmxyp569[address] [place], [place] [address]DrKianna Tripathi PROF 14(COMP METB)on 022 Albumin [Mass/Vol] 3.6 g/dL Normal 3.4-5.0 [facility] Comment on above: Performed By: #### C MP ####[facility] Txewkjinqg727[address] [place], [place] [address]Dr. Airam Deuce Albumin/Globulin [Mass ratio] 1.1 {ratio} Normal [facility] Comment on above: Performed By: #### C MP ####[facility] Qswrclynjg[address] [place] [address]Dr. Airam Tripathi ALP [Catalytic activity/Vol] 131 U/L Critically high 46-116 [facility] Comment on above: Performed By: #### C MP ####[facility] Scntqeunse[address] [place] [address]Dr. Airam Deuce ALT [Catalytic activity/Vol] 22 U/L Normal 14-59 [facility] Comment on above: Performed By: #### C MP ####[facility] Iailfhpeoa6[address] [place], [place] [address]Dr. Selenaneil Deuce Anion gap [Moles/Vol] 13.3 mmol/L Normal [facility] Comment on above: Performed By: #### C MP ####[facility] Tztevwtupn26[address] [place], [place] [address]Dr. Airam Deuce AST [Catalytic activity/Vol] 23 U/L Normal 15-37 [facility] Comment on above: Performed By: #### C MP ####[facility] Ounznvjtfn604[address] [place], [place] [address]Dr. Airam Deuce Bilirubin [Mass/Vol] 0.3 mg/dL Normal 0.2-1.0 [facility] Comment on above: Performed By: #### C MP ####[facility] Aqzimtgrkm279[address] [place], [place] [address]Dr. Airam Deuce Calcium [Mass/Vol] 8.7 mg/dL Normal 8.5-10.1 [facility] Comment on above: Performed By: #### C MP ####[facility] Xqiacyjhlx06[address] [place], [place] [address]Dr. Airam Tripathi Chloride [Moles/Vol] 104 mmol/L Normal 98-107 [facility] Comment on above: Performed By: #### C MP ####[facility] Tfogoyzzcr807[address] [place], [place] [address]Dr. Airam Tripathi CO2 [Moles/Vol] 22.0 mmol/L Normal 21.0-32.0 [facility] Comment on above: Performed By: #### C MP ####[facility] Wlbofikcok[address] [place] [address]Dr. Airam Deuce Creatinine [Mass/Vol] 1.20 mg/dL Critically high 0.55-1.02 [facility] Comment on above: Performed By: #### C MP ####[facility] Knjvqyiizx6[address] [place] [address]Dr. Selenaneil Deuce EGFR-AF GUAMANIAN 56 mL/min/1.73m2 Critically low >=60 [facility] Comment on above: Performed By: #### C MP ####[facility] Bjkdfuvuct[address] [place], [place] [address]Dr. Airam Tripathi EGFR-NON AF GUAMANIAN 46 mL/min/1.73m2 Critically low >=60 [facility] Comment on above: Performed By: #### C MP ####[facility] Tikdsaijjg784[address] [place], [place] [address]Dr. Selenaneil Tripathi Globulin (S) [Mass/Vol] 3.2 g/dL Normal [facility] Comment on above: Performed By: #### C MP ####[facility] Jlmezqheim[address] [place], [place] [address]Dr. Airam Tripathi Glucose [Mass/Vol] 98 mg/dL Normal 74-106 [facility] Comment on above: Performed By: #### C MP ####[facility] Kbmcqgnpny258[address] [place], [place] [address]Dr. Airam Tripathi Potassium [Moles/Vol] 4.3 mmol/L Normal 3.5-5.1 [facility] Comment on above: Performed By: #### C MP ####[facility] Fvchupyrdc[address] [place], [place] [address]Dr. Airam Tripathi Protein [Mass/Vol] 6.8 g/dL Normal 6.4-8.2 [facility] Comment on above: Performed By: #### C MP ####[facility] Nhpqltfdfu860[address] [place], [place] [address]Dr. Airam Tripathi Sodium [Moles/Vol] 135 mmol/L Critically low 136-145 [facility] Comment on above: Performed By: #### C MP ####[facility] Lvslrhuelf90[address] [place], [place] [address]Dr. Airam Tripathi Urea nitrogen [Mass/Vol] 33.0 mg/dL Critically high 7.0-18.0 [facility] Comment on above: Performed By: #### C MP ####[facility] Ubzdgyrylp167[address] [place], [place] [address]Dr. Airam Tripathi Urea nitrogen/Creatinine [Mass ratio] 27.5 mg/mg Normal [facility] Comment on above: Performed By: #### C MP ####[facility] Huhaksmkej[address] [place], [place] [address]Dr. Airam Tripathi OSMOLALITYon 02-07-2022 Osmolality [Osmolality] 299 mosm/kg Critically high 275-295 [facility] Comment on above: Performed By: #### O SMO ####[facility] Odrhctrxin[address] [place], [place] [address]Dr. Airam Tripathi CBC AUTO DIFFon 02-03-2022 BASO # 0.0 103/ul Normal 0.0-0.1 [facility] Comment on above: Performed By: #### C BC ####[facility] Hqtzljxluq7[address] [place], [place] [address]Dr. Airam Tripathi Basophils/100 WBC (Bld) 0.4 % Normal 0.2-2.0 [facility] Comment on above: Performed By: #### C BC ####[facility] Jokshrimmk445[address] [place], [place] [address]Dr. Airam Tripathi EO # 0.3 103/ul Normal 0.0-0.7 [facility] Comment on above: Performed By: #### C BC ####[facility] Yrcvyxbizy144[address] [place], [place] [address]Dr. Airam Tripathi Eosinophils/100 WBC (Bld) 3.6 % Normal 0.9-7.0 [facility] Comment on above: Performed By: #### C BC ####[facility] Ncrfjgwiwc9224[address] [place], [place] [address]Dr. Airam Tripathi Erythrocyte distribution width (RBC) [Ratio] 13.2 % Normal 11.0-15.0 [facility] Comment on above: Performed By: #### C BC ####[facility] X[address]bsskha[address] [place] [address]Dr. Airam Tripathi Hematocrit (Bld) [Volume fraction] 32.0 % Critically low 36.0-48.0 [facility] Comment on above: Performed By: #### C BC ####[facility] Zxiodfltyv101[address] [place], [place] [address]Dr. Airam Tripathi Hemoglobin (Bld) [Mass/Vol] 9.8 g/dL Critically low 12.0-16.0 [facility] Comment on above: Performed By: #### C BC ####[facility] Snwuqmvrkq95[address] [place], [place] [address]Dr. Airam Tripathi IG # 0.03 10e3/ul Normal 0.00-0.03 [facility] Comment on above: Performed By: #### C BC ####[facility] Gswfpdscjc[address] [place], [place] [address]Dr. Airam Tripathi IG % 0.4 % Normal 0.0-0.5 [facility] Comment on above: Performed By: #### C BC ####[facility] Gfmobqrpwh[address] [place], [place] [address]Dr. Airam Tripathi LYMPH # 1.7 103/ul Normal 1.2-3.8 [facility] Comment on above: Performed By: #### C BC ####[facility] Jjjaqeujhx224[address] [place], [place] [address]Dr. Airam Trpiathi Lymphocytes/100 WBC (Bld) 24.8 % Normal 20.5-60.0 [facility] Comment on above: Performed By: #### C BC ####[facility] Ukdzvfwjtd[address] [place], [place] [address]DrKianna Airam Deuce MANUAL DIFF REQ NO Normal [facility] Comment on above: Performed By: #### C BC ####[facility] Tftipgepel[address] [place], [place] [address]DrKianna Airam Deuce MCH (RBC) [Entitic mass] 29.6 pg Normal 26.7-34.0 [facility] Comment on above: Performed By: #### C BC ####[facility] [address]tk[address] [place] [address]Dr. Airam Tripathi MCHC (RBC) [Mass/Vol] 30.6 g/dL Normal 29.9-35.2 [facility] Comment on above: Performed By: #### C BC ####[facility] Uupzqzmhaa[address] [place], [place] [address]Dr. Airam Tripathi MCV (RBC) [Entitic vol] 96.7 fL Normal 81.0-99.0 [facility] Comment on above: Performed By: #### C BC ####[facility] Lnehhjiimp[address] [place], [place] [address]Dr. Airam Deuce MONO # 0.4 103/ul Normal 0.3-0.8 [facility] Comment on above: Performed By: #### C BC ####[facility] Cklhjortyt[address] [place], [place] [address]Dr. Selenaneil Tripathi Monocytes/100 WBC (Bld) 6.3 % Normal 1.7-12.0 [facility] Comment on above: Performed By: #### C BC ####[facility] Nltfslsuqd[address] [place], [place] [address]Dr. Airam Tripathi NEUT # 4.5 103/ul Normal 1.4-6.5 [facility] Comment on above: Performed By: #### C BC ####[facility] Sovzuybekv[address] [place], [place] [address]Dr. Selenaneil Tripathi Neutrophils/100 WBC (Bld) 64.5 % Normal 43.0-75.0 [facility] Comment on above: Performed By: #### C BC ####[facility] Jkduolrqdz[address] [place], [place] [address]DrKianna Airam Deuce Platelet mean volume (Bld) [Entitic vol] 9.3 fL Critically low 9.5-13.5 [facility] Comment on above: Performed By: #### C BC ####[facility] [address]jve[address] [place], [place] [id number]. Airam Tripathi PLT 243 103/ul Normal 150-450 [facility] Comment on above: Performed By: #### C BC ####[facility] Purnwlwmzz8999 [place] [address]Dr. Selenaneil Deuce RBC 3.31 106/ul Critically low 4.20-5.40 [facility] Comment on above: Performed By: #### C BC ####[facility] Cmcylbgwtx4237 [place] [address]Dr. Airam Tripathi WBC 7.0 103/ul Normal 4.0-11.0 [facility] Comment on above: Performed By: #### C BC ####[facility] Mccvievhyk8660 [place] [address]DrKianna Tripathi PROF 14(COMP METB)on 022 Albumin [Mass/Vol] 3.3 g/dL Critically low 3.4-5.0 [facility] Comment on above: Performed By: #### C MP ####[facility] Fdgmekijkr2517 [place] [address]Dr. Airam Tripathi Albumin/Globulin [Mass ratio] 1.1 {ratio} Normal [facility] Comment on above: Performed By: #### C MP ####[facility] Plyheeubet8106 [place] [address]Dr. Airam Tripathi ALP [Catalytic activity/Vol] 126 U/L Critically high 46-116 [facility] Comment on above: Performed By: #### C MP ####[facility] Bhshcpigfk6700 [place] [address]Dr. Airam Tripathi ALT [Catalytic activity/Vol] 21 U/L Normal 14-59 [facility] Comment on above: Performed By: #### C MP ####[facility] Vkqyyubtca3330 [place] [address]DrKianna Tripathi Anion gap [Moles/Vol] 11.8 mmol/L Normal [facility] Comment on above: Performed By: #### C MP ####[facility] Btwwoxartj2476 [place] [address]Dr. Airam Tripathi AST [Catalytic activity/Vol] 22 U/L Normal 15-37 [facility] Comment on above: Performed By: #### C MP ####[facility] Cndwyvbpej6022 [place] [address]Dr. Airam Deuce Bilirubin [Mass/Vol] 0.3 mg/dL Normal 0.2-1.0 [facility] Comment on above: Performed By: #### C MP ####[facility] Nlqtwuhvej[address] [place], [place] [address]Dr. Airam Tripathi Calcium [Mass/Vol] 8.7 mg/dL Normal 8.5-10.1 [facility] Comment on above: Performed By: #### C MP ####[facility] Fsbcaihvsn7[address] [place], [place] [address]Dr. Airam Tripathi Chloride [Moles/Vol] 102 mmol/L Normal 98-107 [facility] Comment on above: Performed By: #### C MP ####[facility] Qkjxqgcaup088[address] [place], [place] [address]Dr. Airam Tripathi CO2 [Moles/Vol] 25.5 mmol/L Normal 21.0-32.0 [facility] Comment on above: Performed By: #### C MP ####[facility] Bgmvfcazoy904[address] [place], [place] [address]Dr. Airam Tripathi Creatinine [Mass/Vol] 1.43 mg/dL Critically high 0.55-1.02 [facility] Comment on above: Performed By: #### C MP ####[facility] Kysoihoskc[address] [place], [place] [address]Dr. Airam Tripathi EGFR-AF GUAMANIAN 46 mL/min/1.73m2 Critically low >=60 [facility] Comment on above: Performed By: #### C MP ####[facility] Bdpcembryi28[address] [place], [place] [address]Dr. Airam Tripathi EGFR-NON AF GUAMANIAN 38 mL/min/1.73m2 Critically low >=60 [facility] Comment on above: Performed By: #### C MP ####[facility] Pvvhfbkrby935[address] [place], [place] [address]Dr. Airam Tripathi Globulin (S) [Mass/Vol] 2.9 g/dL Normal [facility] Comment on above: Performed By: #### C MP ####[facility] Dfxlqutgna19[address] [place], [place] [address]Dr. Airam Tripathi Glucose [Mass/Vol] 83 mg/dL Normal 74-106 [facility] Comment on above: Performed By: #### C MP ####[facility] Hugadmtojd8292 [place] [address]Dr. Airam Tripathi Potassium [Moles/Vol] 4.3 mmol/L Normal 3.5-5.1 [facility] Comment on above: Performed By: #### C MP ####[facility] Bcdpztpcqe901[address] [place], [place] [address]Dr. Airam Tripathi Protein [Mass/Vol] 6.2 g/dL Critically low 6.4-8.2 [facility] Comment on above: Performed By: #### C MP ####[facility] Xiwlbedjmc[address] [place], [place] [address]Dr. Airam Tripathi Sodium [Moles/Vol] 135 mmol/L Critically low 136-145 [facility] Comment on above: Performed By: #### C MP ####[facility] Glkffapkzi[address] [place], [place] [address]DrKianna Tripathi Urea nitrogen [Mass/Vol] 39.0 mg/dL Critically high 7.0-18.0 [facility] Comment on above: Performed By: #### C MP ####[facility] Wwglejgjbu625[address] [place], [place] [address]Dr. Airam Tripathi Urea nitrogen/Creatinine [Mass ratio] 27.3 mg/mg Normal [facility] Comment on above: Performed By: #### C MP ####[facility] Xtimjzxcnc1769[address] [place], [place] [address]DrKianna Tripathi OSMOLALITYon 02-02-2022 Osmolality [Osmolality] 292 mosm/kg Normal 275-295 [facility] Comment on above: Performed By: #### O SMO ####[facility] Ybkbxisnyz[address] [place], [place] [address]DrKianna Tripathi CBC AUTO DIFFon 01-27-2022 BASO # 0.0 103/ul Normal 0.0-0.1 [facility] Comment on above: Performed By: #### C BC ####[facility] Emxroyfwjk1481 [place] [address]Dr. Airam Tripathi Basophils/100 WBC (Bld) 0.4 % Normal 0.2-2.0 [facility] Comment on above: Performed By: #### C BC ####[facility] Ywegfmwwrv2944 [place] [address]Dr. Airam Tripathi EO # 0.2 103/ul Normal 0.0-0.7 [facility] Comment on above: Performed By: #### C BC ####[facility] Ncnkkudzct266[address] [place], [place] [address]Dr. eSlenaneil Deuce Eosinophils/100 WBC (Bld) 3.4 % Normal 0.9-7.0 [facility] Comment on above: Performed By: #### C BC ####[facility] Whbgwnqaer953[address] [place], [place] [address]Dr. Airam Tripathi Erythrocyte distribution width (RBC) [Ratio] 13.1 % Normal 11.0-15.0 [facility] Comment on above: Performed By: #### C BC ####[facility] Eozwstjvye7580 [place] [address]Dr. Airam Tripathi Hematocrit (Bld) [Volume fraction] 31.6 % Critically low 36.0-48.0 [facility] Comment on above: Performed By: #### C BC ####[facility] Nqnuuyfzxj7272 [place] [address]Dr. Airam Tripathi Hemoglobin (Bld) [Mass/Vol] 9.9 g/dL Critically low 12.0-16.0 [facility] Comment on above: Performed By: #### C BC ####[facility] Tcvfeybjbb0571 [place] [address]Dr. Airam Tripathi IG # 0.02 10e3/ul Normal 0.00-0.03 [facility] Comment on above: Performed By: #### C BC ####[facility] Mfbvgtxydw3654 [place] [id number]. Airam Tripathi IG % 0.4 % Normal 0.0-0.5 [facility] Comment on above: Performed By: #### C BC ####[facility] Crpfvhfmog8168 [place] [address]Dr. Airam Deuce LYMPH # 1.0 103/ul Critically low 1.2-3.8 [facility] Comment on above: Performed By: #### C BC ####[facility] Mdrnsjlqzw3865 [place] [address]Dr. Selenaneil Tripathi Lymphocytes/100 WBC (Bld) 17.4 % Critically low 20.5-60.0 [facility] Comment on above: Performed By: #### C BC ####[facility] Yjzupskndh230[address] [place], [place] [address]Dr. Selenaneil Tripathi MANUAL DIFF REQ NO Normal [facility] Comment on above: Performed By: #### C BC ####[facility] Gyjqssgygy703[address] [place], [place] [address]Dr. Airam Deuce MCH (RBC) [Entitic mass] 30.1 pg Normal 26.7-34.0 [facility] Comment on above: Performed By: #### C BC ####[facility] Bmmporbdfx36[address] [place], [place] [address]Dr. Airam Tripathi MCHC (RBC) [Mass/Vol] 31.3 g/dL Normal 29.9-35.2 [facility] Comment on above: Performed By: #### C BC ####[facility] Xyaozrxmah67[address] [place], [place] [address]Dr. Airam Deuce MCV (RBC) [Entitic vol] 96.0 fL Normal 81.0-99.0 [facility] Comment on above: Performed By: #### C BC ####[facility] Sjdrksiawk69[address] [place], [place] [address]Dr. Airam Tripathi MONO # 0.5 103/ul Normal 0.3-0.8 [facility] Comment on above: Performed By: #### C BC ####[facility] [address]jmw[address]pk[address] [place] [address]Ck. Airam Tripathi Monocytes/100 WBC (Bld) 8.6 % Normal 1.7-12.0 [facility] Comment on above: Performed By: #### C BC ####[facility] Cilwiuvxce0528 [place] [id number]. Airam Tripathi NEUT # 3.9 103/ul Normal 1.4-6.5 [facility] Comment on above: Performed By: #### C BC ####[facility] Cadyfsvzqu7225 [place] [address]Dr. Airam Tripathi Neutrophils/100 WBC (Bld) 69.8 % Normal 43.0-75.0 [facility] Comment on above: Performed By: #### C BC ####[facility] Jdqjjkvxwe8976 [place] [address]Dr. Airam Tripathi Platelet mean volume (Bld) [Entitic vol] 9.6 fL Normal 9.5-13.5 [facility] Comment on above: Performed By: #### C BC ####[facility] Cudgjtudkj1635 [place] [address]Dr. Airam Tripathi PLT 228 103/ul Normal 150-450 [facility] Comment on above: Performed By: #### C BC ####[facility] Nxbsabjjzt5077 [place] [address]Dr. Airam Tripathi RBC 3.29 106/ul Critically low 4.20-5.40 [facility] Comment on above: Performed By: #### C BC ####[facility] Xtnrcveiln2560 [place] [address]Dr. Airam Tripathi WBC 5.6 103/ul Normal 4.0-11.0 [facility] Comment on above: Performed By: #### C BC ####[facility] Gmqtpihlfc0795 [place] [address]Dr. Airam Tripathi PROF 14(COMP METB)on 022 Albumin [Mass/Vol] 3.1 g/dL Critically low 3.4-5.0 [facility] Comment on above: Performed By: #### C MP ####[facility] Uoaznfovko6994 [place] [address]Dr. Airam Deuce Albumin/Globulin [Mass ratio] 1.0 {ratio} Normal [facility] Comment on above: Performed By: #### C MP ####[facility] Scmjodaxuh4325 [place] [address]Dr. Airam Tripathi ALP [Catalytic activity/Vol] 131 U/L Critically high 46-116 [facility] Comment on above: Performed By: #### C MP ####[facility] Vecozypnwg644[address] [place], [place] [address]Dr. Ariam Tripathi ALT [Catalytic activity/Vol] 19 U/L Normal 14-59 [facility] Comment on above: Performed By: #### C MP ####[facility] Mtyqunbpzv517[address] [place], [place] [address]Dr. Airam Tripathi Anion gap [Moles/Vol] 12.9 mmol/L Normal [facility] Comment on above: Performed By: #### C MP ####[facility] Iygtiljwfj695[address] [place], [place] [address]Dr. Airam Tripathi AST [Catalytic activity/Vol] 21 U/L Normal 15-37 [facility] Comment on above: Performed By: #### C MP ####[facility] Ktpthhmchd199[address] [place], [place] [address]Dr. Airam Tripathi Bilirubin [Mass/Vol] 0.2 mg/dL Normal 0.2-1.0 [facility] Comment on above: Performed By: #### C MP ####[facility] Psyrzcyvup10[address] [place], [place] [address]Dr. Airam Tripathi Calcium [Mass/Vol] 8.4 mg/dL Critically low 8.5-10.1 [facility] Comment on above: Performed By: #### C MP ####[facility] Bbzqzgqpis456[address] [place], [place] [address]Dr. Airam Tripathi Chloride [Moles/Vol] 103 mmol/L Normal 98-107 [facility] Comment on above: Performed By: #### C MP ####[facility] Hecimeotlw380[address] [place], [place] [address]Dr. Airam Tripathi CO2 [Moles/Vol] 23.7 mmol/L Normal 21.0-32.0 [facility] Comment on above: Performed By: #### C MP ####[facility] Tphsxbipsg8956 [place] [address]Dr. Airam Tripathi Creatinine [Mass/Vol] 1.37 mg/dL Critically high 0.55-1.02 [facility] Comment on above: Performed By: #### C MP ####[facility] Ikwigahyjm9269 [place] [address]Dr. Airam Deuce EGFR-AF GUAMANIAN 48 mL/min/1.73m2 Critically low >=60 [facility] Comment on above: Performed By: #### C MP ####[facility] Mqouzerndt929[address] [place], [place] [address]Dr. Selenaneil Deuce EGFR-NON AF GUAMANIAN 39 mL/min/1.73m2 Critically low >=60 [facility] Comment on above: Performed By: #### C MP ####[facility] Tmqalbybsj974[address] [place], [place] [address]Dr. Airam Deuce Globulin (S) [Mass/Vol] 3.1 g/dL Normal [facility] Comment on above: Performed By: #### C MP ####[facility] Pbdmzeizvt[address] [place], [place] [address]Dr. Airam Tripathi Glucose [Mass/Vol] 88 mg/dL Normal 74-106 [facility] Comment on above: Performed By: #### C MP ####[facility] Nthjzlxawc288[address] [place], [place] [address]Dr. Airam Deuce Potassium [Moles/Vol] 4.6 mmol/L Normal 3.5-5.1 [facility] Comment on above: Performed By: #### C MP ####[facility] Lfgtzaqtin246[address] [place], [place] [address]Dr. Airam Tripathi Protein [Mass/Vol] 6.2 g/dL Critically low 6.4-8.2 [facility] Comment on above: Performed By: #### C MP ####[facility] Lfawizinln360[address] [place], [place] [address]Dr. Airam Tripathi Sodium [Moles/Vol] 135 mmol/L Critically low 136-145 [facility] Comment on above: Performed By: #### C MP ####[facility] Vhxpqjpndh9052 [place] [address]Dr. Airam Tripathi Urea nitrogen [Mass/Vol] 34.0 mg/dL Critically high 7.0-18.0 [facility] Comment on above: Performed By: #### C MP ####[facility] Nrzatxopnw5940 [place] [address]Dr. Airam Tripathi Urea nitrogen/Creatinine [Mass ratio] 24.8 mg/mg Normal [facility] Comment on above: Performed By: #### C MP ####[facility] Zsfogtjxcb316[address] [place], [place] [address]Dr. Airam Tripathi OSMOLALITYon 01-21-2022 Osmolality [Osmolality] 276 mosm/kg Normal 275-295 [facility] Comment on above: Performed By: #### O SMO ####[facility] Rpwjoycijo7739[address] [place], [place] [address]Dr. Airam Tripathi MRI CSPINE WO CONon 01-21-20 MRI CSPINE WO CON Normal [facility] CBC AUTO DIFFon 01-19-2022 BASO # 0.0 103/ul Normal 0.0-0.1 [facility] Comment on above: Performed By: #### C BC ####[facility] Lhcihtsqtu[address] [place], [place] [address]Dr. Airam Deuce Basophils/100 WBC (Bld) 0.2 % Normal 0.2-2.0 [facility] Comment on above: Performed By: #### C BC ####[facility] Ogbfhctfto0421 [place] [address]Dr. Airam Deuce EO # 0.2 103/ul Normal 0.0-0.7 [facility] Comment on above: Performed By: #### C BC ####[facility] Zlntqipghg276[address] [place], [place] [address]Dr. Airam Tripathi Eosinophils/100 WBC (Bld) 2.1 % Normal 0.9-7.0 [facility] Comment on above: Performed By: #### C BC ####[facility] Ckdosxlpme8802 [place] [address]Dr. Airam Tripathi Erythrocyte distribution width (RBC) [Ratio] 12.7 % Normal 11.0-15.0 [facility] Comment on above: Performed By: #### C BC ####[facility] Twbxjwkjpl658[address] [place], [place] [address]Dr. Airam Tripathi Hematocrit (Bld) [Volume fraction] 32.2 % Critically low 36.0-48.0 [facility] Comment on above: Performed By: #### C BC ####[facility] Ivhucugkog439[address] [place], [place] [address]Dr. Airam Tripathi Hemoglobin (Bld) [Mass/Vol] 10.4 g/dL Critically low 12.0-16.0 [facility] Comment on above: Performed By: #### C BC ####[facility] Ecilichgli994[address] [place], [place] [address]Dr. Airam Tripathi IG # 0.03 10e3/ul Normal 0.00-0.03 [facility] Comment on above: Performed By: #### C BC ####[facility] Rbvsbufvwe07[address] [place], [place] [address]Dr. Airam Tripathi IG % 0.3 % Normal 0.0-0.5 [facility] Comment on above: Performed By: #### C BC ####[facility] Lresrjolfi9[address] [place], [place] [address]Dr. Airam Tripathi LYMPH # 1.4 103/ul Normal 1.2-3.8 [facility] Comment on above: Performed By: #### C BC ####[facility] Pbzzlobchn99[address] [place], [place] [address]DrKianna Airam Tripathi Lymphocytes/100 WBC (Bld) 16.0 % Critically low 20.5-60.0 [facility] Comment on above: Performed By: #### C BC ####[facility] Bwxnciavej8[address] [place], [place] [address]DrKianna Airam Tripathi MANUAL DIFF REQ NO Normal [facility] Comment on above: Performed By: #### C BC ####[facility] Wisojgmzme4022 [place] [id number]. Airam Tripathi MCH (RBC) [Entitic mass] 30.0 pg Normal 26.7-34.0 [facility] Comment on above: Performed By: #### C BC ####[facility] Zrcnimahiz2427 [place] [address]Dr. Airam Deuce MCHC (RBC) [Mass/Vol] 32.3 g/dL Normal 29.9-35.2 [facility] Comment on above: Performed By: #### C BC ####[facility] Bmhucspzwv0263 [place] [address]Dr. Airam Deuce MCV (RBC) [Entitic vol] 92.8 fL Normal 81.0-99.0 [facility] Comment on above: Performed By: #### C BC ####[facility] Zptnqqsvfh49[address] [place], [place] [address]Dr. Selenaneil Tripathi MONO # 0.4 103/ul Normal 0.3-0.8 [facility] Comment on above: Performed By: #### C BC ####[facility] Xryixkgulq9[address] [place], [place] [address]Dr. Selenaneil Tripathi Monocytes/100 WBC (Bld) 4.9 % Normal 1.7-12.0 [facility] Comment on above: Performed By: #### C BC ####[facility] Itkbazbcqd136[address] [place], [place] [address]Dr. Airam Deuce NEUT # 6.6 103/ul Critically high 1.4-6.5 [facility] Comment on above: Performed By: #### C BC ####[facility] Ke[address]adardz[address] [place], [place] [id number] Selenaneil Tripathi Neutrophils/100 WBC (Bld) 76.5 % Critically high 43.0-75.0 [facility] Comment on above: Performed By: #### C BC ####[facility] Hwhouscddp[address] [place], [place] [address]Dr. Airam Tripathi Platelet mean volume (Bld) [Entitic vol] 9.8 fL Normal 9.5-13.5 [facility] Comment on above: Performed By: #### C BC ####[facility] Ealvrarghu5306 [place] [phone]. Airam Tripathi PLT 262 103/ul Normal 150-450 [facility] Comment on above: Performed By: #### C BC ####[facility] Auhjcrvxhc6467 [place] [phone]. Selenaneil Deuce RBC 3.47 106/ul Critically low 4.20-5.40 [facility] Comment on above: Performed By: #### C BC ####[facility] Jpjawgiuyu6280 [place] [phone]. Selenaneil Deuce WBC 8.7 103/ul Normal 4.0-11.0 [facility] Comment on above: Performed By: #### C BC ####[facility] Drpgwiwxqr6279 [place] [address]Dr. Airam Tripathi PROF 14(COMP METB)on 022 Albumin [Mass/Vol] 3.3 g/dL Critically low 3.4-5.0 [facility] Comment on above: Performed By: #### C MP ####[facility] Minxywlovp6031 [place] [address]Dr. Airam Tripathi Albumin/Globulin [Mass ratio] 1.1 {ratio} Normal [facility] Comment on above: Performed By: #### C MP ####[facility] Vturqwwibi0932 [place] [address]Dr. Airam Tripathi ALP [Catalytic activity/Vol] 114 U/L Normal 46-116 [facility] Comment on above: Performed By: #### C MP ####[facility] Gslrwdjjuv4766 [place] [phone]. Airam Tripathi ALT [Catalytic activity/Vol] 20 U/L Normal 14-59 [facility] Comment on above: Performed By: #### C MP ####[facility] Eezfmdgbhz7235 [place] [phone]. Airam Tripathi Anion gap [Moles/Vol] 14.7 mmol/L Normal [facility] Comment on above: Performed By: #### C MP ####[facility] Yltvrqshcw6041 [place] [phone]. Airam Tripathi AST [Catalytic activity/Vol] 22 U/L Normal 15-37 [facility] Comment on above: Performed By: #### C MP ####[facility] Uylfcnzzal0378 [place] [phone]. Airam Tripathi Bilirubin [Mass/Vol] 0.3 mg/dL Normal 0.2-1.0 [facility] Comment on above: Performed By: #### C MP ####[facility] Pkemwshlyr6960 [place] [address]Dr. Airam Tripathi Calcium [Mass/Vol] 8.8 mg/dL Normal 8.5-10.1 [facility] Comment on above: Performed By: #### C MP ####[facility] Iucpcayivh7[address] [place], [place] [address]Dr. Airam Tripathi Chloride [Moles/Vol] 97 mmol/L Critically low 98-107 [facility] Comment on above: Performed By: #### C MP ####[facility] Kcoanxqtzt278[address] [place], [place] [address]Dr. Airam Tripathi CO2 [Moles/Vol] 24.5 mmol/L Normal 21.0-32.0 [facility] Comment on above: Performed By: #### C MP ####[facility] Vobqynspdv9[address] [place], [place] [address]Dr. Airam Tripathi Creatinine [Mass/Vol] 1.28 mg/dL Critically high 0.55-1.02 [facility] Comment on above: Performed By: #### C MP ####[facility] Xqpdoodcsf6266 [place] [phone]. Airam Deuce EGFR-AF GUAMANIAN 52 mL/min/1.73m2 Critically low >=60 [facility] Comment on above: Performed By: #### C MP ####[facility] Sieecmfaqj3098 [place] [phone]. Selenaneil Deuce EGFR-NON AF GUAMANIAN 43 mL/min/1.73m2 Critically low >=60 [facility] Comment on above: Performed By: #### C MP ####[facility] Sezeupuove0829 [place] [phone]. Airam Tripathi Globulin (S) [Mass/Vol] 3.1 g/dL Normal [facility] Comment on above: Performed By: #### C MP ####[facility] Ytygzbawtr4735 [place] [phone]. Airam Tripathi Glucose [Mass/Vol] 87 mg/dL Normal 74-106 [facility] Comment on above: Performed By: #### C MP ####[facility] Zcxdrdyuux3036 [place] [address]Dr. Airam Tripathi Potassium [Moles/Vol] 4.2 mmol/L Normal 3.5-5.1 [facility] Comment on above: Performed By: #### C MP ####[facility] Jrnijxgxsv0233 [place] [address]Dr. Airam Tripathi Protein [Mass/Vol] 6.4 g/dL Normal 6.4-8.2 [facility] Comment on above: Performed By: #### C MP ####[facility] Jltcjqvsjy9673 [place] [address]Dr. Airam Tripathi Sodium [Moles/Vol] 132 mmol/L Critically low 136-145 [facility] Comment on above: Performed By: #### C MP ####[facility] Ctpjkrwvze7157 [place] [address]Dr. Airam Deuce Urea nitrogen [Mass/Vol] 36.0 mg/dL Critically high 7.0-18.0 [facility] Comment on above: Performed By: #### C MP ####[facility] Zjtorbsxiv[address] [place] [phone]. Airam Deuce Urea nitrogen/Creatinine [Mass ratio] 28.1 mg/mg Normal [facility] Comment on above: Performed By: #### C MP ####[facility] Wcfpgcoepk[address] [place] [phone]. Airam Deuce XR DEXA BONE DENSITYon 01-19 XR DEXA BONE DENSITY Normal [facility] OSMOLALITYon 01-13-2022 Osmolality [Osmolality] 277 mosm/kg Normal 275-295 [facility] Comment on above: Performed By: #### O SMO ####[facility] Lreebcvbqz[address] [place], [place] [address]Dr. Airam Tripathi CBC AUTO DIFFon 01-11-2022 BASO # 0.0 103/ul Normal 0.0-0.1 [facility] Comment on above: Performed By: #### C BC ####[facility] Beesdegiji[address] [place], [place] [address]Dr. Airam Tripathi Basophils/100 WBC (Bld) 0.5 % Normal 0.2-2.0 [facility] Comment on above: Performed By: #### C BC ####[facility] Czktjignnv[address] [place], [place] [address]Dr. Airam Tripathi EO # 0.2 103/ul Normal 0.0-0.7 [facility] Comment on above: Performed By: #### C BC ####[facility] Ohatkrxeia[address] [place], [place] [address]Dr. Airam Tripathi Eosinophils/100 WBC (Bld) 3.1 % Normal 0.9-7.0 [facility] Comment on above: Performed By: #### C BC ####[facility] Jdnaomzbdx[address] [place], [place] [address]Dr. Airam Tripathi Erythrocyte distribution width (RBC) [Ratio] 12.5 % Normal 11.0-15.0 [facility] Comment on above: Performed By: #### C BC ####[facility] Rjybrntrgz[address] [place], [place] [address]Dr. Airam Tripathi Hematocrit (Bld) [Volume fraction] 34.4 % Critically low 36.0-48.0 [facility] Comment on above: Performed By: #### C BC ####[facility] Rnzowvlosw[address] [place], [place] [address]Dr. Airam Tripathi Hemoglobin (Bld) [Mass/Vol] 11.0 g/dL Critically low 12.0-16.0 [facility] Comment on above: Performed By: #### C BC ####[facility] Otmedwnxnv[address] [place] [address]Dr. Airam Tripathi IG # 0.03 10e3/ul Normal 0.00-0.03 [facility] Comment on above: Performed By: #### C BC ####[facility] Kyhtcbbwkz30[address] [place] [address]Dr. Airam Deuce IG % 0.5 % Normal 0.0-0.5 [facility] Comment on above: Performed By: #### C BC ####[facility] Qfikhzisnl[address] [place] [address]Dr. Selenaneil Tripathi LYMPH # 1.6 103/ul Normal 1.2-3.8 [facility] Comment on above: Performed By: #### C BC ####[facility] Fhgipnbyfi05[address] [place] [address]Dr. Airam Tripathi Lymphocytes/100 WBC (Bld) 28.0 % Normal 20.5-60.0 [facility] Comment on above: Performed By: #### C BC ####[facility] Ioyfztlxyy[address] [place] [address]Dr. Selenaneil Tripathi MANUAL DIFF REQ NO Normal [facility] Comment on above: Performed By: #### C BC ####[facility] Sfosvwlhbi32[address] [place] [address]Dr. Airam Tripathi MCH (RBC) [Entitic mass] 30.1 pg Normal 26.7-34.0 [facility] Comment on above: Performed By: #### C BC ####[facility] Atnxizlupn05[address] [place] [address]Dr. Airam Deuce MCHC (RBC) [Mass/Vol] 32.0 g/dL Normal 29.9-35.2 [facility] Comment on above: Performed By: #### C BC ####[facility] Dstkvtcmxm[address] [place], [place] [address]Dr. Airam Deuce MCV (RBC) [Entitic vol] 94.0 fL Normal 81.0-99.0 [facility] Comment on above: Performed By: #### C BC ####[facility] Vorgoyegkq[address] [place], [place] [id number]. Airam Tripathi MONO # 0.4 103/ul Normal 0.3-0.8 [facility] Comment on above: Performed By: #### C BC ####[facility] Vndjuudasd84[address] [place] [address]Dr. Airam Tripathi Monocytes/100 WBC (Bld) 7.5 % Normal 1.7-12.0 [facility] Comment on above: Performed By: #### C BC ####[facility] Cclpmbgntt3876 [place] [address]Dr. Airam Tripathi NEUT # 3.5 103/ul Normal 1.4-6.5 [facility] Comment on above: Performed By: #### C BC ####[facility] Rrogcbktjv[address] [place], [place] [address]Dr. Airam Tripathi Neutrophils/100 WBC (Bld) 60.4 % Normal 43.0-75.0 [facility] Comment on above: Performed By: #### C BC ####[facility] Yhhojczgnr012[address] [place], [place] [address]Dr. Airam Tripathi Platelet mean volume (Bld) [Entitic vol] 10.0 fL Normal 9.5-13.5 [facility] Comment on above: Performed By: #### C BC ####[facility] Jsnqmxyhev77[address] [place] [address]Dr. Airam Tripathi PLT 300 103/ul Normal 150-450 [facility] Comment on above: Performed By: #### C BC ####[facility] Kbkembigov2219[address] [place], [place] [address]Dr. Airam Tripathi RBC 3.66 106/ul Critically low 4.20-5.40 [facility] Comment on above: Performed By: #### C BC ####[facility] Nkhmkwkifh[address] [place], [place] [address]Dr. Airam Tripathi WBC 5.7 103/ul Normal 4.0-11.0 [facility] Comment on above: Performed By: #### C BC ####[facility] Vfllaivdlj[address] [place], [place] [address]Dr. Airam Tripathi PROF 14(COMP METB)on 022 Albumin [Mass/Vol] 3.3 g/dL Critically low 3.4-5.0 [facility] Comment on above: Performed By: #### C MP ####[facility] Acjkichndz04[address] [place], [place] [address]Dr. Airam Tripathi Albumin/Globulin [Mass ratio] 1.0 {ratio} Normal [facility] Comment on above: Performed By: #### C MP ####[facility] Vghqmpuzjk7[address] [place], [place] [address]Dr. Airam Tripathi ALP [Catalytic activity/Vol] 138 U/L Critically high 46-116 [facility] Comment on above: Performed By: #### C MP ####[facility] Zfespoishr119[address] [place], [place] [address]Dr. Airam Tripathi ALT [Catalytic activity/Vol] 25 U/L Normal 14-59 [facility] Comment on above: Performed By: #### C MP ####[facility] Uozdwdnefj697[address] [place], [place] [address]Dr. Airam Tripathi Anion gap [Moles/Vol] 14.0 mmol/L Normal [facility] Comment on above: Performed By: #### C MP ####[facility] Hljgwlffgj4624[address] [place], [place] [address]Dr. Airam Tripathi AST [Catalytic activity/Vol] 19 U/L Normal 15-37 [facility] Comment on above: Performed By: #### C MP ####[facility] Kirpbhrydt[address] [place], [place] [address]Dr. Airam Tripathi Bilirubin [Mass/Vol] 0.3 mg/dL Normal 0.2-1.0 [facility] Comment on above: Performed By: #### C MP ####[facility] Gdssxsvfgp64[address] [place], [place] [address]Dr. Airam Tripathi Calcium [Mass/Vol] 8.7 mg/dL Normal 8.5-10.1 [facility] Comment on above: Performed By: #### C MP ####[facility] Yjxgcstqke[address] [place], [place] [address]Dr. Airam Tripathi Chloride [Moles/Vol] 99 mmol/L Normal 98-107 [facility] Comment on above: Performed By: #### C MP ####[facility] Nagvhqsfer[address] [place], [place] [address]Dr. Airam Deuce CO2 [Moles/Vol] 25.4 mmol/L Normal 21.0-32.0 [facility] Comment on above: Performed By: #### C MP ####[facility] Tinoqrdrjb[address] [place], [place] [address]Dr. Airam Deuce Creatinine [Mass/Vol] 1.22 mg/dL Critically high 0.55-1.02 [facility] Comment on above: Performed By: #### C MP ####[facility] Oybfxlxhph[address] [place], [place] [address]Dr. Airam Tripathi EGFR-AF GUAMANIAN 55 mL/min/1.73m2 Critically low >=60 [facility] Comment on above: Performed By: #### C MP ####[facility] Pmfhvhejss9[address] [place], [place] [address]Dr. Airam Deuce EGFR-NON AF GUAMANIAN 45 mL/min/1.73m2 Critically low >=60 [facility] Comment on above: Performed By: #### C MP ####[facility] Eaumcxhgwb[address] [place], [place] [address]Dr. Airam Tripathi Globulin (S) [Mass/Vol] 3.2 g/dL Normal [facility] Comment on above: Performed By: #### C MP ####[facility] Rzhomtfdla188[address] [place], [place] [address]Dr. Airam Tripathi Glucose [Mass/Vol] 111 mg/dL Critically high 74-106 T [facility] Comment on above: Performed By: #### C MP ####[facility] Kymxegxdyp388[address] [place], [place] [address]Dr. Airam Tripathi Potassium [Moles/Vol] 4.4 mmol/L Normal 3.5-5.1 [facility] Comment on above: Performed By: #### C MP ####[facility] Xcftjrwzaw92[address] [place], [place] [address]Dr. Airam Tripathi Protein [Mass/Vol] 6.5 g/dL Normal 6.4-8.2 [facility] Comment on above: Performed By: #### C MP ####[facility] [address]wkg[address] [place], [place] [address]Gy. Airam Tripathi Sodium [Moles/Vol] 134 mmol/L Critically low 136-145 Th [facility] Comment on above: Performed By: #### C MP ####[facility] P[address]fcwrucm16[address] [place], [place] [address]Cy. Airam Tripathi Urea nitrogen [Mass/Vol] 27.0 mg/dL Critically high 7.0-18.0 [facility] Comment on above: Performed By: #### C MP ####[facility] [address]cl[address]ofkn[address] [place] [phone]. Airam Tripathi Urea nitrogen/Creatinine [Mass ratio] 22.1 mg/mg Normal [facility] Comment on above: Performed By: #### C MP ####[facility] Mdzussouaz[address] [place] [phone]. Airam Tripathi CT CERVICAL SPINE WITHOUT CO NTRASTon 01-10-2022 CT CERVICAL SPINE WITHOUT CONTRAST [facility] Department of Radiology [address] [place] [id number] Patient Name: MABEL MOSER : 1960 [...] achievable. Electronically signed: Ayleen Ny. Transcribed by: [email or web address], User Resident: Electronically Signed by: AYLEEN [place] @ 01/12/2022 12:32 PM Normal [facility] OSMOLALITYon 01-07-2022 Osmolality [Osmolality] 286 mosm/kg Normal 275-295 [facility] Comment on above: Performed By: #### O SMO ####[facility] Kbxdystueh[address] [place] [address]Dr. Airam Tripathi CBC AUTO DIFFon 01-06-2022 BASO # 0.0 103/ul Normal 0.0-0.1 [facility] Comment on above: Performed By: #### C BC ####[facility] Dzflceggnb[address] [place] [address]Dr. Selenaneil Tripathi Basophils/100 WBC (Bld) 0.3 % Normal 0.2-2.0 [facility] Comment on above: Performed By: #### C BC ####[facility] Uxhgjgjnac037[address] [place], [place] [address]Dr. Selenaneil Tripathi EO # 0.2 103/ul Normal 0.0-0.7 [facility] Comment on above: Performed By: #### C BC ####[facility] Qhcwrzocom[address] [place], [place] [address]Dr. Airam Tripathi Eosinophils/100 WBC (Bld) 4.1 % Normal 0.9-7.0 [facility] Comment on above: Performed By: #### C BC ####[facility] Dsepljzptk[address] [place], [place] [address]Dr. Airam Deuce Erythrocyte distribution width (RBC) [Ratio] 12.9 % Normal 11.0-15.0 [facility] Comment on above: Performed By: #### C BC ####[facility] Gquxzfochr[address] [place], [place] [address]Dr. Selenaneil Tripathi Hematocrit (Bld) [Volume fraction] 34.2 % Critically low 36.0-48.0 [facility] Comment on above: Performed By: #### C BC ####[facility] Sxmtnsneyf[address] [place], [place] [address]Dr. Selenaneil Tripathi Hemoglobin (Bld) [Mass/Vol] 10.6 g/dL Critically low 12.0-16.0 [facility] Comment on above: Performed By: #### C BC ####[facility] Uhadafczjx[address] [place], [place] [address]Dr. Airam Tripathi IG # 0.03 10e3/ul Normal 0.00-0.03 [facility] Comment on above: Performed By: #### C BC ####[facility] Tkkyebxoul2705 [place] [address]DrKianna Selenaneil Tripathi IG % 0.5 % Normal 0.0-0.5 [facility] Comment on above: Performed By: #### C BC ####[facility] Mjuubobzpt4032 [place] [address]DrKianna Airam Deuce LYMPH # 1.1 103/ul Critically low 1.2-3.8 [facility] Comment on above: Performed By: #### C BC ####[facility] Xtikflirgh5622 [place] [address]DrKianna Selenaneil Tripathi Lymphocytes/100 WBC (Bld) 18.2 % Critically low 20.5-60.0 [facility] Comment on above: Performed By: #### C BC ####[facility] Wzfoipflnv[address] [place], [place] [address]DrKianna Selenaneil Tripathi MANUAL DIFF REQ NO Normal [facility] Comment on above: Performed By: #### C BC ####[facility] Dsqkcqlfbz4917 [place] [address]Dr. Airam Deuce MCH (RBC) [Entitic mass] 29.6 pg Normal 26.7-34.0 [facility] Comment on above: Performed By: #### C BC ####[facility] Hqoqqkbfzq[address] [place], [place] [address]DrKianna Airam Deuce MCHC (RBC) [Mass/Vol] 31.0 g/dL Normal 29.9-35.2 [facility] Comment on above: Performed By: #### C BC ####[facility] [address]oukimygkj[address] [place], [place] [id number] Airam Deuce MCV (RBC) [Entitic vol] 95.5 fL Normal 81.0-99.0 [facility] Comment on above: Performed By: #### C BC ####[facility] Mtqgordnzt75[address] [place] [address]DrKianna Tripathi MONO # 0.5 103/ul Normal 0.3-0.8 [facility] Comment on above: Performed By: #### C BC ####[facility] Zjrripwxwk1130 [place] [phone]. Airam Tripathi Monocytes/100 WBC (Bld) 8.5 % Normal 1.7-12.0 [facility] Comment on above: Performed By: #### C BC ####[facility] Aqahgfrqrc50[address] [place] [phone]. Airam Tripathi NEUT # 4.0 103/ul Normal 1.4-6.5 [facility] Comment on above: Performed By: #### C BC ####[facility] Vrxqegwhen[address] [place] [phone]. Airam Tripathi Neutrophils/100 WBC (Bld) 68.4 % Normal 43.0-75.0 [facility] Comment on above: Performed By: #### C BC ####[facility] Jxzuggtzbn8937 [place] [address]Dr. Airam Tripathi Platelet mean volume (Bld) [Entitic vol] 10.1 fL Normal 9.5-13.5 [facility] Comment on above: Performed By: #### C BC ####[facility] Wczgiiuxit50[address] [place] [address]Dr. Airam Tripathi PLT 304 103/ul Normal 150-450 [facility] Comment on above: Performed By: #### C BC ####[facility] Uffiqtihir6376 [place] [phone]. Airam Tripathi RBC 3.58 106/ul Critically low 4.20-5.40 [facility] Comment on above: Performed By: #### C BC ####[facility] Fekapevpzu8601 [place] [phone]. Airam Tripathi WBC 5.9 103/ul Normal 4.0-11.0 [facility] Comment on above: Performed By: #### C BC ####[facility] Ptbphwehvt5091 [place] [phone]. Airam Tripathi MG MAMM RT DIAG FUon 01-06-2 022 MG MAMM RT DIAG FU Normal [facility] PROF 14(COMP METB)on 022 Albumin [Mass/Vol] 3.1 g/dL Critically low 3.4-5.0 [facility] Comment on above: Performed By: #### C MP ####[facility] Tkpnlpsenh7[address] [place], [place] [address]Dr. Airam Tripathi Albumin/Globulin [Mass ratio] 1.0 {ratio} Normal [facility] Comment on above: Performed By: #### C MP ####[facility] Luoqogzfot[address] [place], [place] [address]Dr. Airam Tripathi ALP [Catalytic activity/Vol] 143 U/L Critically high 46-116 [facility] Comment on above: Performed By: #### C MP ####[facility] Fnqxvozbql[address] [place], [place] [address]Dr. Airam Tripathi ALT [Catalytic activity/Vol] 23 U/L Normal 14-59 [facility] Comment on above: Performed By: #### C MP ####[facility] Bteoiwlupk406[address] [place], [place] [address]Dr. Airam Tripathi Anion gap [Moles/Vol] 13.2 mmol/L Normal [facility] Comment on above: Performed By: #### C MP ####[facility] Sattdvwqiq9[address] [place], [place] [address]Dr. Airam Tripathi AST [Catalytic activity/Vol] 20 U/L Normal 15-37 [facility] Comment on above: Performed By: #### C MP ####[facility] Stslcbinco[address] [place], [place] [address]Dr. Airam Tripathi Bilirubin [Mass/Vol] 0.3 mg/dL Normal 0.2-1.0 [facility] Comment on above: Performed By: #### C MP ####[facility] Ofhfngnajm[address] [place], [place] [address]Dr. Airam Tripathi Calcium [Mass/Vol] 8.2 mg/dL Critically low 8.5-10.1 [facility] Comment on above: Performed By: #### C MP ####[facility] Bmstbwxogs[address] [place], [place] [address]Dr. Airam Tripathi Chloride [Moles/Vol] 100 mmol/L Normal 98-107 [facility] Comment on above: Performed By: #### C MP ####[facility] Ywziwddssb3253 [place] [address]Dr. Airam Deuce CO2 [Moles/Vol] 26.0 mmol/L Normal 21.0-32.0 [facility] Comment on above: Performed By: #### C MP ####[facility] Dnmxjqjiky398[address] [place], [place] [address]Dr. Airam Deuce Creatinine [Mass/Vol] 1.52 mg/dL Critically high 0.55-1.02 [facility] Comment on above: Performed By: #### C MP ####[facility] Phroxernnm[address] [place], [place] [address]Dr. Airam Deuce EGFR-AF GUAMANIAN 42 mL/min/1.73m2 Critically low >=60 [facility] Comment on above: Performed By: #### C MP ####[facility] Mjfmjqnohk[address] [place], [place] [address]Dr. Airam Deuce EGFR-NON AF GUAMANIAN 35 mL/min/1.73m2 Critically low >=60 [facility] Comment on above: Performed By: #### C MP ####[facility] Meyigjutuv208[address] [place], [place] [address]Dr. Selenaneil Tripathi Globulin (S) [Mass/Vol] 3.2 g/dL Normal [facility] Comment on above: Performed By: #### C MP ####[facility] Xvodmttzlt9224[address] [place], [place] [address]Dr. Selenaneil Tripathi Glucose [Mass/Vol] 84 mg/dL Normal 74-106 [facility] Comment on above: Performed By: #### C MP ####[facility] Wdczcbnvoo[address] [place], [place] [address]Dr. Airam Tripathi Potassium [Moles/Vol] 4.2 mmol/L Normal 3.5-5.1 [facility] Comment on above: Performed By: #### C MP ####[facility] Manbjqyfhf724[address] [place], [place] [address]Dr. Airam Tripathi Protein [Mass/Vol] 6.3 g/dL Critically low 6.4-8.2 [facility] Comment on above: Performed By: #### C MP ####[facility] Jnvbvtzjts74[address] [place] [address]Dr. Selenaneil Tripathi Sodium [Moles/Vol] 135 mmol/L Critically low 136-145 [facility] Comment on above: Performed By: #### C MP ####[facility] Pfpqywnhvt106[address] [place], [place] [address]Dr. Selenaneil Deuce Urea nitrogen [Mass/Vol] 36.0 mg/dL Critically high 7.0-18.0 [facility] Comment on above: Performed By: #### C MP ####[facility] Ltappzhnen[address] [place], [place] [address]Dr. Airam Tripathi Urea nitrogen/Creatinine [Mass ratio] 23.7 mg/mg Normal [facility] Comment on above: Performed By: #### C MP ####[facility] Zxmpouubdq43[address] [place], [place] [address]Dr. Selenaneil Deuce US BREAST RIGHT LIMITEDon US BREAST RIGHT LIMITED Normal [facility] OSMOLALITYon 12-31-2021 Osmolality [Osmolality] 280 mosm/kg Normal 275-295 [facility] Comment on above: Performed By: #### O SMO ####[facility] Bjnfoxiowg[address] [place], [place] [address]Dr. Selenaneil Deuce CBC AUTO DIFFon 12-30-2021 BASO # 0.0 103/ul Normal 0.0-0.1 [facility] Comment on above: Performed By: #### C BC ####[facility] Cbyjzdjdfz80[address] [place] [address]Dr. Airam Tripathi Basophils/100 WBC (Bld) 0.5 % Normal 0.2-2.0 [facility] Comment on above: Performed By: #### C BC ####[facility] Nwpggkdpzw5679 [place] [address]Dr. Airam Tripathi EO # 0.3 103/ul Normal 0.0-0.7 [facility] Comment on above: Performed By: #### C BC ####[facility] Euteydgcwd2814 [place] [address]Dr. Airam Tripathi Eosinophils/100 WBC (Bld) 3.5 % Normal 0.9-7.0 [facility] Comment on above: Performed By: #### C BC ####[facility] Sthgoxhotc8[address] [place], [place] [address]Dr. Airam Tripathi Erythrocyte distribution width (RBC) [Ratio] 13.0 % Normal 11.0-15.0 [facility] Comment on above: Performed By: #### C BC ####[facility] Dwytsqaxtb[address] [place], [place] [address]Dr. Airam Tripathi Hematocrit (Bld) [Volume fraction] 34.2 % Critically low 36.0-48.0 [facility] Comment on above: Performed By: #### C BC ####[facility] Uxnrdfjtwp[address] [place], [place] [address]Dr. Airam Tripathi Hemoglobin (Bld) [Mass/Vol] 10.4 g/dL Critically low 12.0-16.0 [facility] Comment on above: Performed By: #### C BC ####[facility] [address]yf[address]fwnu[address] [place], [place] [address]Dr. Airam Tripathi IG # 0.04 10e3/ul Critically high 0.00-0.03 [facility] Comment on above: Performed By: #### C BC ####[facility] Zklnrmucau[address] [place], [place] [address]Dr. Airam Tripathi IG % 0.5 % Normal 0.0-0.5 [facility] Comment on above: Performed By: #### C BC ####[facility] Veidrktfxn[address] [place], [place] [address]Dr. Airam Tripathi LYMPH # 2.1 103/ul Normal 1.2-3.8 [facility] Comment on above: Performed By: #### C BC ####[facility] Pcskiuzhyt[address] [place], [place] [address]Dr. Airam Tripathi Lymphocytes/100 WBC (Bld) 23.5 % Normal 20.5-60.0 [facility] Comment on above: Performed By: #### C BC ####[facility] Ljvacxyapo8[address] [place] [phone]. Airam Deuce MANUAL DIFF REQ NO Normal [facility] Comment on above: Performed By: #### C BC ####[facility] Pmoudpzzte33[address] [place] [phone]. Selenaenil Tripathi MCH (RBC) [Entitic mass] 29.4 pg Normal 26.7-34.0 [facility] Comment on above: Performed By: #### C BC ####[facility] Wcwhivvgmn6366 [place] [phone]. Airam Deuce MCHC (RBC) [Mass/Vol] 30.4 g/dL Normal 29.9-35.2 [facility] Comment on above: Performed By: #### C BC ####[facility] Gnyzpufhtz[address] [place], [place] [address]Dr. Airam Tripathi MCV (RBC) [Entitic vol] 96.6 fL Normal 81.0-99.0 [facility] Comment on above: Performed By: #### C BC ####[facility] Likzlqkbtq[address] [place], [place] [address]Dr. Selenaneil Deuce MONO # 0.6 103/ul Normal 0.3-0.8 [facility] Comment on above: Performed By: #### C BC ####[facility] Kpvipxpyon[address] [place], [place] [address]Dr. Airam Tripathi Monocytes/100 WBC (Bld) 6.4 % Normal 1.7-12.0 [facility] Comment on above: Performed By: #### C BC ####[facility] Suhsknyaoo[address] [place], [place] [address]Dr. Airam Tripathi NEUT # 5.8 103/ul Normal 1.4-6.5 [facility] Comment on above: Performed By: #### C BC ####[facility] Nkpnwwtosc[address] [place], [place] [id number]. Airam Tripathi Neutrophils/100 WBC (Bld) 65.6 % Normal 43.0-75.0 [facility] Comment on above: Performed By: #### C BC ####[facility] [address] [place] [address]Dr. Selenaneil Deuce Platelet mean volume (Bld) [Entitic vol] 9.2 fL Critically low 9.5-13.5 [facility] Comment on above: Performed By: #### C BC ####[facility] [address] [place] [address]Dr. Airam Tripathi PLT 338 103/ul Normal 150-450 [facility] Comment on above: Performed By: #### C BC ####[facility] Qnochijivs[address] [place] [address]Dr. Airam Tripathi RBC 3.54 106/ul Critically low 4.20-5.40 [facility] Comment on above: Performed By: #### C BC ####[facility] Hkjbxfejqp[address] [place], [place] [address]Dr. Airam Tripathi WBC 8.9 103/ul Normal 4.0-11.0 [facility] Comment on above: Performed By: #### C BC ####[facility] Lwlldcmdkx[address] [place], [place] [address]Dr. Airam Tripathi MG MAMM SCREEN 3D GUMARO CADon 12-30-2021 MG MAMM SCREEN 3D GUMARO CAD Normal [facility] PROF 14(COMP METB)on 022 Albumin [Mass/Vol] 3.6 g/dL Normal 3.4-5.0 [facility] Comment on above: Performed By: #### C MP ####[facility] Njskdhhkhc[address] [place], [place] [address]Dr. Airam Tripathi Albumin/Globulin [Mass ratio] 1.1 {ratio} Normal [facility] Comment on above: Performed By: #### C MP ####[facility] Rpspurugmh[address] [place], [place] [address]Dr. Airam Tripathi ALP [Catalytic activity/Vol] 117 U/L Critically high 46-116 [facility] Comment on above: Performed By: #### C MP ####[facility] Jfkzxauffq[address] [place], [place] [address]Dr. Airam Tripathi ALT [Catalytic activity/Vol] 26 U/L Normal 14-59 [facility] Comment on above: Performed By: #### C MP ####[facility] [address] [place] [address]Dr. Airam Tripathi Anion gap [Moles/Vol] 11.2 mmol/L Normal [facility] Comment on above: Performed By: #### C MP ####[facility] Zybwgzfaka[address] [place] [address]Dr. Airam Tripathi AST [Catalytic activity/Vol] 29 U/L Normal 15-37 [facility] Comment on above: Performed By: #### C MP ####[facility] Rplwupmbhe[address] [place], [place] [address]Dr. Airam Deuce Bilirubin [Mass/Vol] 0.3 mg/dL Normal 0.2-1.0 [facility] Comment on above: Performed By: #### C MP ####[facility] Gzfbwctixq[address] [place], [place] [address]Dr. Airam Deuce Calcium [Mass/Vol] 9.1 mg/dL Normal 8.5-10.1 [facility] Comment on above: Performed By: #### C MP ####[facility] Scstfhdune[address] [place], [place] [address]Dr. Airam Deuce Chloride [Moles/Vol] 101 mmol/L Normal 98-107 [facility] Comment on above: Performed By: #### C MP ####[facility] Uiwgmtavym[address] [place], [place] [address]Dr. Airam Tripathi CO2 [Moles/Vol] 26.8 mmol/L Normal 21.0-32.0 [facility] Comment on above: Performed By: #### C MP ####[facility] Ipktybtbsn[address] [place], [place] [address]Dr. Airam Deuce Creatinine [Mass/Vol] 1.56 mg/dL Critically high 0.55-1.02 [facility] Comment on above: Performed By: #### C MP ####[facility] Nevtaqzzbk68[address] [place], [place] [address]Dr. Airam Deuce EGFR-AF GUAMANIAN 41 mL/min/1.73m2 Critically low >=60 [facility] Comment on above: Performed By: #### C MP ####[facility] [address]avi[address] [place] [address]Dr. Airam Deuce EGFR-NON AF GUAMANIAN 34 mL/min/1.73m2 Critically low >=60 [facility] Comment on above: Performed By: #### C MP ####[facility] Yyecciqyoj[address] [place] [address]Dr. Selenaneil Deuce Globulin (S) [Mass/Vol] 3.3 g/dL Normal [facility] Comment on above: Performed By: #### C MP ####[facility] Kiosbetjky[address] [place] [address]Dr. Airam Tripathi Glucose [Mass/Vol] 84 mg/dL Normal 74-106 [facility] Comment on above: Performed By: #### C MP ####[facility] Puqdhwkqjj[address] [place], [place] [address]Dr. Airam Tripathi Potassium [Moles/Vol] 5.0 mmol/L Normal 3.5-5.1 [facility] Comment on above: Performed By: #### C MP ####[facility] Waccbgjvva[address] [place], [place] [address]Dr. Airam Deuce Protein [Mass/Vol] 6.9 g/dL Normal 6.4-8.2 [facility] Comment on above: Performed By: #### C MP ####[facility] Ydneepcwph[address] [place] [address]Dr. Airam Tripathi Sodium [Moles/Vol] 134 mmol/L Critically low 136-145 [facility] Comment on above: Performed By: #### C MP ####[facility] Npmnlgglvt[address] [place], [place] [address]Dr. Airam Tripathi Urea nitrogen [Mass/Vol] 28.0 mg/dL Critically high 7.0-18.0 [facility] Comment on above: Performed By: #### C MP ####[facility] Cnemppplon[address] [place], [place] [address]Dr. Airam Tripathi Urea nitrogen/Creatinine [Mass ratio] 17.9 mg/mg Normal [facility] Comment on above: Performed By: #### C MP ####[facility] Oudludittq64[address] [place], [place] [address]DrKianna Tripathi OSMOLALITYon 12-24-2021 Osmolality [Osmolality] 287 mosm/kg Normal 275-295 [facility] Comment on above: Performed By: #### O SMO ####[facility] Ifywirutjq[address] [place], [place] [address]Dr. Airam Tripathi CBC AUTO DIFFon 12-22-2021 BASO # 0.0 103/ul Normal 0.0-0.1 [facility] Comment on above: Performed By: #### C BC ####[facility] Vesweuubrd223[address] [place], [place] [address]DrKianna Tripathi Basophils/100 WBC (Bld) 0.5 % Normal 0.2-2.0 [facility] Comment on above: Performed By: #### C BC ####[facility] Mwngzqimvh9[address] [place], [place] [address]DrKianna Tripathi EO # 0.4 103/ul Normal 0.0-0.7 [facility] Comment on above: Performed By: #### C BC ####[facility] Ydvlajlyxa174[address] [place], [place] [address]DrKianna Tripathi Eosinophils/100 WBC (Bld) 6.4 % Normal 0.9-7.0 [facility] Comment on above: Performed By: #### C BC ####[facility] Fadjifwzzt659[address] [place], [place] [address]DrKianna Tripathi Erythrocyte distribution width (RBC) [Ratio] 13.2 % Normal 11.0-15.0 [facility] Comment on above: Performed By: #### C BC ####[facility] Iihgfxrfkr187[address] [place], [place] [address]DrKianna Tripathi Hematocrit (Bld) [Volume fraction] 32.2 % Critically low 36.0-48.0 [facility] Comment on above: Performed By: #### C BC ####[facility] Eoihbsvfht[address] [place], [place] [address]DrKianna Tripathi Hemoglobin (Bld) [Mass/Vol] 10.1 g/dL Critically low 12.0-16.0 [facility] Comment on above: Performed By: #### C BC ####[facility] [address]ubiqm[address] [place] [address]DrKianna Tripathi IG # 0.03 10e3/ul Normal 0.00-0.03 [facility] Comment on above: Performed By: #### C BC ####[facility] Qvumflrugc[address] [place], [place] [address]DrKianna Tripathi IG % 0.5 % Normal 0.0-0.5 [facility] Comment on above: Performed By: #### C BC ####[facility] Nbmaqqnouc[address] [place], [place] [address]DrKianna Tripathi LYMPH # 1.3 103/ul Normal 1.2-3.8 [facility] Comment on above: Performed By: #### C BC ####[facility] Ocjlcpqueh[address] [place], [place] [address]DrKianna Tripathi Lymphocytes/100 WBC (Bld) 20.5 % Normal 20.5-60.0 [facility] Comment on above: Performed By: #### C BC ####[facility] Hpmlkwihos[address] [place], [place] [address]DrKianna Tripathi MANUAL DIFF REQ NO Normal [facility] Comment on above: Performed By: #### C BC ####[facility] Fkzjvaqajy[address] [place], [place] [address]DrKianna Tripathi MCH (RBC) [Entitic mass] 30.1 pg Normal 26.7-34.0 [facility] Comment on above: Performed By: #### C BC ####[facility] Ygrzemqvdv[address] [place], [place] [address]DrKianna Tripathi MCHC (RBC) [Mass/Vol] 31.4 g/dL Normal 29.9-35.2 [facility] Comment on above: Performed By: #### C BC ####[facility] Onhqvwqqrz[address] [place], [place] [address]DrKianna Tripathi MCV (RBC) [Entitic vol] 95.8 fL Normal 81.0-99.0 [facility] Comment on above: Performed By: #### C BC ####[facility] Huyesfobrr[address] [place], [place] [address]Dr. Airam Tripathi MONO # 0.5 103/ul Normal 0.3-0.8 [facility] Comment on above: Performed By: #### C BC ####[facility] Duzrhdqdaz[address] [place], [place] [address]Dr. Airam Tripathi Monocytes/100 WBC (Bld) 7.4 % Normal 1.7-12.0 [facility] Comment on above: Performed By: #### C BC ####[facility] Melgyqkdef0[address] [place], [place] [address]Dr. Airam Tripathi NEUT # 3.9 103/ul Normal 1.4-6.5 [facility] Comment on above: Performed By: #### C BC ####[facility] Mapafizwhf74[address] [place], [place] [address]Dr. Airam Tripathi Neutrophils/100 WBC (Bld) 64.7 % Normal 43.0-75.0 [facility] Comment on above: Performed By: #### C BC ####[facility] Bjecsbubng[address] [place], [place] [address]DrKianna Airam Tripathi Platelet mean volume (Bld) [Entitic vol] 9.2 fL Critically low 9.5-13.5 [facility] Comment on above: Performed By: #### C BC ####[facility] Jftwralrna8[address] [place], [place] [address]Dr. Airam Deuce PLT 309 103/ul Normal 150-450 [facility] Comment on above: Performed By: #### C BC ####[facility] Pvinxdzuov85[address] [place], [place] [address]Dr. Airam Deuce RBC 3.36 106/ul Critically low 4.20-5.40 [facility] Comment on above: Performed By: #### C BC ####[facility] Afcuzkntkj437[address] [place], [place] [address]Dr. Airam Tripathi WBC 6.1 103/ul Normal 4.0-11.0 [facility] Comment on above: Performed By: #### C BC ####[facility] [address]vbchb[address] [place] [address]Dr. Ariam Tripathi PROF 14(COMP METB)on 022 Albumin [Mass/Vol] 3.2 g/dL Critically low 3.4-5.0 [facility] Comment on above: Performed By: #### C MP ####[facility] Zhdpinbpcw[address] [place], [place] [address]Dr. Airam Tripathi Albumin/Globulin [Mass ratio] 1.1 {ratio} Normal [facility] Comment on above: Performed By: #### C MP ####[facility] Tcdyivwjmg128[address] [place], [place] [address]Dr. Airam Tripathi ALP [Catalytic activity/Vol] 123 U/L Critically high 46-116 [facility] Comment on above: Performed By: #### C MP ####[facility] Bwjxsnztlo[address] [place], [place] [address]Dr. Airam Tripathi ALT [Catalytic activity/Vol] 26 U/L Normal 14-59 [facility] Comment on above: Performed By: #### C MP ####[facility] Wnjwiwrnbm[address] [place], [place] [address]Dr. Airam Tripathi Anion gap [Moles/Vol] 14.5 mmol/L Normal [facility] Comment on above: Performed By: #### C MP ####[facility] Sdtyufnaaq8[address] [place], [place] [address]Dr. Airam Tripathi AST [Catalytic activity/Vol] 23 U/L Normal 15-37 [facility] Comment on above: Performed By: #### C MP ####[facility] Mriawtsdsk[address] [place], [place] [address]Dr. Airam Tripathi Bilirubin [Mass/Vol] 0.3 mg/dL Normal 0.2-1.0 [facility] Comment on above: Performed By: #### C MP ####[facility] Wzcekuuxvz94[address] [place], [place] [address]Dr. Airam Tripathi Calcium [Mass/Vol] 8.2 mg/dL Critically low 8.5-10.1 [facility] Comment on above: Performed By: #### C MP ####[facility] Sm[address]chlerm[address] [place] [address]Dr. Airam Tripathi Chloride [Moles/Vol] 102 mmol/L Normal 98-107 [facility] Comment on above: Performed By: #### C MP ####[facility] Bogchazfvd[address] [place], [place] [address]Dr. Airam Tripathi CO2 [Moles/Vol] 23.2 mmol/L Normal 21.0-32.0 [facility] Comment on above: Performed By: #### C MP ####[facility] Pbmxscglas[address] [place], [place] [address]Dr. Airam Tripathi Creatinine [Mass/Vol] 1.98 mg/dL Critically high 0.55-1.02 [facility] Comment on above: Performed By: #### C MP ####[facility] Moajjqneld[address] [place], [place] [address]Dr. Airam Tripathi EGFR-AF GUAMANIAN 31 mL/min/1.73m2 Critically low >=60 [facility] Comment on above: Performed By: #### C MP ####[facility] Xkcfvquzem355[address] [place], [place] [address]Dr. Airam Tripathi EGFR-NON AF GUAMANIAN 26 mL/min/1.73m2 Critically low >=60 [facility] Comment on above: Performed By: #### C MP ####[facility] Mgqlewyrby55[address] [place], [place] [address]Dr. Airam Tripathi Globulin (S) [Mass/Vol] 3.0 g/dL Normal [facility] Comment on above: Performed By: #### C MP ####[facility] Tawkjbtaxt[address] [place], [place] [address]Dr. Airam Tripathi Glucose [Mass/Vol] 131 mg/dL Critically high 74-106 T [facility] Comment on above: Performed By: #### C MP ####[facility] Rdjeddgrsr127[address] [place], [place] [address]Dr. Airam Tirpathi Potassium [Moles/Vol] 4.7 mmol/L Normal 3.5-5.1 [facility] Comment on above: Performed By: #### C MP ####[facility] Kqxphmxwit[address] [place] [address]Dr. Airam Deuce Protein [Mass/Vol] 6.2 g/dL Critically low 6.4-8.2 [facility] Comment on above: Performed By: #### C MP ####[facility] Hnonosggoi68[address] [place], [place] [address]Dr. Airam Tripathi Sodium [Moles/Vol] 135 mmol/L Critically low 136-145 Th [facility] Comment on above: Performed By: #### C MP ####[facility] Tkufodjpfr14[address] [place], [place] [address]Dr. Airam Tripathi Urea nitrogen [Mass/Vol] 37.0 mg/dL Critically high 7.0-18.0 [facility] Comment on above: Performed By: #### C MP ####[facility] Lbkhbfuvmz863[address] [place], [place] [address]Dr. Airam Tripathi Urea nitrogen/Creatinine [Mass ratio] 18.7 mg/mg Normal [facility] Comment on above: Performed By: #### C MP ####[facility] Idzuhpcwvl[address] [place], [place] [address]DrKianna Airam Deuce OSMOLALITYon 12-18-2021 Osmolality [Osmolality] 271 mosm/kg Critically low 275-295 [facility] Comment on above: Performed By: #### O SMO ####[facility] Ywehvpxhny7[address] [place], [place] [address]Dr. Airam Deuce CBC AUTO DIFFon 12-16-2021 BASO # 0.0 103/ul Normal 0.0-0.1 [facility] Comment on above: Performed By: #### C BC ####[facility] Wuxipndguw[address] [place], [place] [address]Dr. Airam Deuce Basophils/100 WBC (Bld) 0.6 % Normal 0.2-2.0 [facility] Comment on above: Performed By: #### C BC ####[facility] Vbbspsxcyx[address] [place], [place] [address]Dr. Airam Tripathi EO # 0.1 103/ul Normal 0.0-0.7 [facility] Comment on above: Performed By: #### C BC ####[facility] Onkpwfwctn5[address] [place] [address]Dr. Airam Tripathi Eosinophils/100 WBC (Bld) 2.1 % Normal 0.9-7.0 [facility] Comment on above: Performed By: #### C BC ####[facility] Wwnnxybuis[address] [place], [place] [address]Dr. Airam Tripathi Erythrocyte distribution width (RBC) [Ratio] 13.1 % Normal 11.0-15.0 [facility] Comment on above: Performed By: #### C BC ####[facility] Nclfhkewsd[address] [place], [place] [address]Dr. Airma Tripathi Hematocrit (Bld) [Volume fraction] 33.8 % Critically low 36.0-48.0 [facility] Comment on above: Performed By: #### C BC ####[facility] Fysxsowpye[address] [place], [place] [address]Dr. Airam Tripathi Hemoglobin (Bld) [Mass/Vol] 10.7 g/dL Critically low 12.0-16.0 [facility] Comment on above: Performed By: #### C BC ####[facility] Jcucqguofk208[address] [place], [place] [address]Dr. Airam Tripathi IG # 0.02 10e3/ul Normal 0.00-0.03 [facility] Comment on above: Performed By: #### C BC ####[facility] Ohohkonlsr[address] [place], [place] [address]Dr. Airam Tripathi IG % 0.3 % Normal 0.0-0.5 [facility] Comment on above: Performed By: #### C BC ####[facility] Mgpoagluaq385[address] [place], [place] [address]Dr. Airam Tripathi LYMPH # 1.2 103/ul Normal 1.2-3.8 [facility] Comment on above: Performed By: #### C BC ####[facility] [address]cfct[address] [place] [address]Dr. Airam Tripathi Lymphocytes/100 WBC (Bld) 17.3 % Critically low 20.5-60.0 [facility] Comment on above: Performed By: #### C BC ####[facility] [address]iexidgt[address] [place] [address]Dr. Airam Tripathi MANUAL DIFF REQ NO Normal [facility] Comment on above: Performed By: #### C BC ####[facility] Fqygxhghnw5[address] [place] [address]Dr. Airam Tripathi MCH (RBC) [Entitic mass] 30.2 pg Normal 26.7-34.0 [facility] Comment on above: Performed By: #### C BC ####[facility] Znoqzknqak[address] [place], [place] [address]Dr. Airam Tripathi MCHC (RBC) [Mass/Vol] 31.7 g/dL Normal 29.9-35.2 [facility] Comment on above: Performed By: #### C BC ####[facility] S[address]rkxxwhiz[address] [place], [place] [address]Dr. Airam Tripathi MCV (RBC) [Entitic vol] 95.5 fL Normal 81.0-99.0 [facility] Comment on above: Performed By: #### C BC ####[facility] Jnzqhycflb[address] [place], [place] [address]Dr. Airam Tripathi MONO # 0.5 103/ul Normal 0.3-0.8 [facility] Comment on above: Performed By: #### C BC ####[facility] Lygnpjircj[address] [place], [place] [address]Dr. Airam Tripathi Monocytes/100 WBC (Bld) 6.8 % Normal 1.7-12.0 [facility] Comment on above: Performed By: #### C BC ####[facility] Qlzfjsthhj[address] [place], [place] [address]Dr. Airam Tripathi NEUT # 4.9 103/ul Normal 1.4-6.5 [facility] Comment on above: Performed By: #### C BC ####[facility] Lwpzrazczu[address] [place], [place] [address]Dr. Airam Deuce Neutrophils/100 WBC (Bld) 72.9 % Normal 43.0-75.0 [facility] Comment on above: Performed By: #### C BC ####[facility] L[address]yymmj[address] [place] [address]Dr. Airam Tripathi Platelet mean volume (Bld) [Entitic vol] 9.0 fL Critically low 9.5-13.5 [facility] Comment on above: Performed By: #### C BC ####[facility] [address]whm[address] [place] [address]Dr. Airam Tripathi PLT 297 103/ul Normal 150-450 [facility] Comment on above: Performed By: #### C BC ####[facility] Tseylafrfb[address] [place] [address]Dr. Airam Trpiathi RBC 3.54 106/ul Critically low 4.20-5.40 [facility] Comment on above: Performed By: #### C BC ####[facility] S[address]grmlkudw[address] [place] [address]Dr. Airam Tripathi WBC 6.8 103/ul Normal 4.0-11.0 [facility] Comment on above: Performed By: #### C BC ####[facility] Ekwjekuozr[address] [place] [address]Dr. Airam Tripathi PROF 14(COMP METB)on 022 Albumin [Mass/Vol] 3.2 g/dL Critically low 3.4-5.0 [facility] Comment on above: Performed By: #### C MP ####[facility] [address]launwhyo[address] [place] [address]Dr. Airam Tripathi Albumin/Globulin [Mass ratio] 1.0 {ratio} Normal [facility] Comment on above: Performed By: #### C MP ####[facility] Eaalatruyg[address] [place] [address]Dr. Airam Tripathi ALP [Catalytic activity/Vol] 109 U/L Normal 46-116 [facility] Comment on above: Performed By: #### C MP ####[facility] Crukdkekry[address] [place] [address]Dr. Airam Tripathi ALT [Catalytic activity/Vol] 23 U/L Normal 14-59 [facility] Comment on above: Performed By: #### C MP ####[facility] Degelkfxtd5[address] [place] [address]Dr. Airam Tripathi Anion gap [Moles/Vol] 11.6 mmol/L Normal Th [facility] Comment on above: Performed By: #### C MP ####[facility] Mgphfnfyen[address] [place] [address]Dr. Airam Deuce AST [Catalytic activity/Vol] 24 U/L Normal 15-37 [facility] Comment on above: Performed By: #### C MP ####[facility] [address]nnocmqnog[address] [place], [place] [address]Dr. Airam Deuce Bilirubin [Mass/Vol] 0.2 mg/dL Normal 0.2-1.0 [facility] Comment on above: Performed By: #### C MP ####[facility] Yqpxggmgpj[address] [place], [place] [address]Dr. Airam Deuce Calcium [Mass/Vol] 8.6 mg/dL Normal 8.5-10.1 [facility] Comment on above: Performed By: #### C MP ####[facility] [address]puhykqllp[address] [place], [place] [address]Dr. Airam Deuce Chloride [Moles/Vol] 100 mmol/L Normal 98-107 [facility] Comment on above: Performed By: #### C MP ####[facility] Qxalwfwngw[address] [place] [address]Dr. Airam Deuce CO2 [Moles/Vol] 24.7 mmol/L Normal 21.0-32.0 [facility] Comment on above: Performed By: #### C MP ####[facility] [facility] [address] [place], [place] [address]Dr. Airam Deuce Creatinine [Mass/Vol] 1.11 mg/dL Critically high 0.55-1.02 [facility] Comment on above: Performed By: #### C MP ####[facility] D[address]zdjvw[address] [place], [place] [address]Dr. Airam Deuce EGFR-AF GUAMANIAN >60 Normal >=60 [facility] Comment on above: Performed By: #### C MP ####[facility] [address] [place] [address]Dr. Airam Deuce EGFR-NON AF GUAMANIAN 50 mL/min/1.73m2 Critically low >=60 [facility] Comment on above: Performed By: #### C MP ####[facility] [address] [place] [address]Dr. Airam Deuce Globulin (S) [Mass/Vol] 3.1 g/dL Normal [facility] Comment on above: Performed By: #### C MP ####[facility] Ytrtuzyofk[address] [place], [place] [address]Dr. Airam Tripathi Glucose [Mass/Vol] 79 mg/dL Normal 74-106 [facility] Comment on above: Performed By: #### C MP ####[facility] [address] [place] [address]Dr. Airam Tripathi Potassium [Moles/Vol] 5.3 mmol/L Critically high 3.5-5.1 [facility] Comment on above: Performed By: #### C MP ####[facility] Owkpkldmqx[address] [place], [place] [address]Dr. Selenaneil Deuce Protein [Mass/Vol] 6.3 g/dL Critically low 6.4-8.2 [facility] Comment on above: Performed By: #### C MP ####[facility] N[address]fg[address] [place], [place] [address]Dr. Airam Tripathi Sodium [Moles/Vol] 131 mmol/L Critically low 136-145 [facility] Comment on above: Performed By: #### C MP ####[facility] Pwmyfxf[address] [place], [place] [address]Dr. Airam Tripathi Urea nitrogen [Mass/Vol] 20.0 mg/dL Critically high 7.0-18.0 [facility] Comment on above: Performed By: #### C MP ####[facility] Hncexxaqky[address] [place], [place] [address]Dr. Airam Tripathi Urea nitrogen/Creatinine [Mass ratio] 18.0 mg/mg Normal [facility] Comment on above: Performed By: #### C MP ####[facility] Sjdfepc[address] [place], [place] [address]Dr. Airam Tripathi OSMOLALITYon 12-09-2021 Osmolality [Osmolality] 279 mosm/kg Normal 275-295 [facility] Comment on above: Performed By: #### O SMO ####[facility] Fftzq[address]fw[address] [place], [place] [address]Dr. Airam Deuce CBC AUTO DIFFon 12-07-2021 BASO # 0.0 103/ul Normal 0.0-0.1 [facility] Comment on above: Performed By: #### C BC ####[facility] Eplcrcyypa[address] [place], [place] [address]Dr. Airam Tripathi Basophils/100 WBC (Bld) 0.5 % Normal 0.2-2.0 [facility] Comment on above: Performed By: #### C BC ####[facility] [address] [place], [place] [address]Dr. Selenaneil Tripathi EO # 0.4 103/ul Normal 0.0-0.7 [facility] Comment on above: Performed By: #### C BC ####[facility] Huhkkeqjde[address] [place], [place] [address]Dr. Airam Deuce Eosinophils/100 WBC (Bld) 6.3 % Normal 0.9-7.0 [facility] Comment on above: Performed By: #### C BC ####[facility] [address]nuixuwp[address] [place], [place] [address]Dr. Airam Deuce Erythrocyte distribution width (RBC) [Ratio] 13.3 % Normal 11.0-15.0 [facility] Comment on above: Performed By: #### C BC ####[facility] Ercgvndycc7[address] [place], [place] [address]DrKianna Airam Deuce Hematocrit (Bld) [Volume fraction] 29.5 % Critically low 36.0-48.0 [facility] Comment on above: Performed By: #### C BC ####[facility] [address] [place] [address]Dr. Airam Tripathi Hemoglobin (Bld) [Mass/Vol] 9.1 g/dL Critically low 12.0-16.0 [facility] Comment on above: Performed By: #### C BC ####[facility] [address] [place] [address]Dr. Airam Tripathi IG # 0.04 10e3/ul Critically high 0.00-0.03 [facility] Comment on above: Performed By: #### C BC ####[facility] [address] [place] [address]Dr. Airam Tripathi IG % 0.7 % Critically high 0.0-0.5 [facility] Comment on above: Performed By: #### C BC ####[facility] [address] [place] [address]Dr. Airam Tripathi LYMPH # 1.3 103/ul Normal 1.2-3.8 [facility] Comment on above: Performed By: #### C BC ####[facility] Mdbmeavemh[address] [place], [place] [address]Dr. Airam Tripathi Lymphocytes/100 WBC (Bld) 20.9 % Normal 20.5-60.0 [facility] Comment on above: Performed By: #### C BC ####[facility] Cxbhsmdcch[address] [place], [place] [address]Dr. Airam Tripathi MANUAL DIFF REQ NO Normal [facility] Comment on above: Performed By: #### C BC ####[facility] [address] [place], [place] [address]Dr. Airam Tripathi MCH (RBC) [Entitic mass] 30.1 pg Normal 26.7-34.0 [facility] Comment on above: Performed By: #### C BC ####[facility] Ehxvhivskl[address] [place], [place] [address]Dr. Airam Tripathi MCHC (RBC) [Mass/Vol] 30.8 g/dL Normal 29.9-35.2 [facility] Comment on above: Performed By: #### C BC ####[facility] Analbaziwn[address] [place], [place] [address]Dr. Airam Deuce MCV (RBC) [Entitic vol] 97.7 fL Normal 81.0-99.0 [facility] Comment on above: Performed By: #### C BC ####[facility] [address]upsbi[address] [place] [address]Dr. Airam Tripathi MONO # 0.4 103/ul Normal 0.3-0.8 [facility] Comment on above: Performed By: #### C BC ####[facility] [address] [place] [address]Dr. Selenaneil Tripathi Monocytes/100 WBC (Bld) 6.6 % Normal 1.7-12.0 [facility] Comment on above: Performed By: #### C BC ####[facility] [address] [place] [address]Dr. Airam Deuce NEUT # 4.0 103/ul Normal 1.4-6.5 [facility] Comment on above: Performed By: #### C BC ####[facility] [address] [place] [address]Dr. Selenaneil Tripathi Neutrophils/100 WBC (Bld) 65.0 % Normal 43.0-75.0 [facility] Comment on above: Performed By: #### C BC ####[facility] [address] [place] [address]Dr. Selenaneil Tripathi Platelet mean volume (Bld) [Entitic vol] 9.4 fL Critically low 9.5-13.5 [facility] Comment on above: Performed By: #### C BC ####[facility] [address] [place] [address]Dr. Airam Deuce PLT 224 103/ul Normal 150-450 [facility] Comment on above: Performed By: #### C BC ####[facility] [address]xl[address] [place] [address]Dr. Selenaneil Deuce RBC 3.02 106/ul Critically low 4.20-5.40 [facility] Comment on above: Performed By: #### C BC ####[facility] [address] [place] [address]Dr. Airam Tripathi WBC 6.1 103/ul Normal 4.0-11.0 [facility] Comment on above: Performed By: #### C BC ####[facility] [address] [place] [address]DrKianna Tripathi PROF 14(COMP METB)on 022 Albumin [Mass/Vol] 2.8 g/dL Critically low 3.4-5.0 [facility] Comment on above: Performed By: #### C MP ####[facility] [address] [place] [address]Dr. Airam Tripathi Albumin/Globulin [Mass ratio] 1.1 {ratio} Normal [facility] Comment on above: Performed By: #### C MP ####[facility] [address] [place] [address]Dr. Airam Tripathi ALP [Catalytic activity/Vol] 116 U/L Normal 46-116 [facility] Comment on above: Performed By: #### C MP ####[facility] Ijnoalryvo[address] [place], [place] [address]Dr. Airam Tripathi ALT [Catalytic activity/Vol] 23 U/L Normal 14-59 [facility] Comment on above: Performed By: #### C MP ####[facility] Nykgihbhbf[address] [place], [place] [address]Dr. Airam Tripathi Anion gap [Moles/Vol] 12.1 mmol/L Normal [facility] Comment on above: Performed By: #### C MP ####[facility] R[address]ffkxcyog[address] [place], [place] [address]Dr. Airam Tripathi AST [Catalytic activity/Vol] 23 U/L Normal 15-37 [facility] Comment on above: Performed By: #### C MP ####[facility] Zadraqwzdf[address] [place], [place] [address]Dr. Airam Tripathi Bilirubin [Mass/Vol] 0.2 mg/dL Normal 0.2-1.0 [facility] Comment on above: Performed By: #### C MP ####[facility] Arsqzhvnot[address] [place], [place] [address]Dr. Airam Tripathi Calcium [Mass/Vol] 8.1 mg/dL Critically low 8.5-10.1 [facility] Comment on above: Performed By: #### C MP ####[facility] [address] [place] [address]Dr. Airam Tripathi Chloride [Moles/Vol] 105 mmol/L Normal 98-107 [facility] Comment on above: Performed By: #### C MP ####[facility] Duewajitpc[address] [place], [place] [address]Dr. Airam Tripathi CO2 [Moles/Vol] 22.1 mmol/L Normal 21.0-32.0 [facility] Comment on above: Performed By: #### C MP ####[facility] Nbcnachtsq[address] [place], [place] [address]Dr. Airam Deuce Creatinine [Mass/Vol] 1.06 mg/dL Critically high 0.55-1.02 [facility] Comment on above: Performed By: #### C MP ####[facility] [address]fe[address]iqm[address] [place], [place] [address]Dr. Airam Deuce EGFR-AF GUAMANIAN >60 Normal >=60 [facility] Comment on above: Performed By: #### C MP ####[facility] Aqpzgwikyj[address] [place], [place] [address]Dr. Airam Deuce EGFR-NON AF GUAMANIAN 53 mL/min/1.73m2 Critically low >=60 [facility] Comment on above: Performed By: #### C MP ####[facility] Ol[address]lyuzzim[address] [place], [place] [address]Dr. Airam Deuce Globulin (S) [Mass/Vol] 2.6 g/dL Normal [facility] Comment on above: Performed By: #### C MP ####[facility] Dmlcnvkmmp[address] [place], [place] [address]Dr. Selenaneil Deuce Glucose [Mass/Vol] 109 mg/dL Critically high 74-106 [facility] Comment on above: Performed By: #### C MP ####[facility] [address] [place], [place] [address]Dr. Selenaneil Deuce Potassium [Moles/Vol] 4.2 mmol/L Normal 3.5-5.1 [facility] Comment on above: Performed By: #### C MP ####[facility] [address] [place] [address]Dr. Airam Tripathi Protein [Mass/Vol] 5.4 g/dL Critically low 6.4-8.2 [facility] Comment on above: Performed By: #### C MP ####[facility] [address] [place] [address]Dr. Airam Tripathi Sodium [Moles/Vol] 135 mmol/L Critically low 136-145 [facility] Comment on above: Performed By: #### C MP ####[facility] [address] [place] [address]Dr. Airam Tripathi Urea nitrogen [Mass/Vol] 15.0 mg/dL Normal 7.0-18.0 [facility] Comment on above: Performed By: #### C MP ####[facility] [address] [place] [address]Dr. Airam Tripathi Urea nitrogen/Creatinine [Mass ratio] 14.2 mg/mg Normal [facility] Comment on above: Performed By: #### C MP ####[facility] [address]af[address] [place], [place] [address]Dr. Airam Tripathi Operative Reporton Operative Report MR#: [id number] S [facility] Pt. Name: Mabel Moser Room #: 0C [...] subscapularis. 3. Right shoulder proximal biceps tenotomy. MANAGER FORMS: Alex Curnutte, M.D. ANESTHESIA: General. INDICATIONS: The [...] Reza M.D. Date Trans: 08/19/2021 11:37 A/carter [id number] cc: Angle Santana M.D. [address], [place] [facility] [address] Normal [facility] POC GLUCOSE LABon 08-19-2021 Glucose [Mass/Vol] 77 mg/dL Normal 70-100 [facility] Comment on above: Performed By: #### [id number] #### [facility] [address] [facility] 04-05-2021 CNPN Telephone (ANDREW) -- MABEL MOSER ([id number]) 1960 F Date Time Provider Department 04/05/21 YEVGENIY FORD During your visit today, we recorded the following information about you: Chana Gallegos [facility] 04/05/2021 7:57 AM Signed Records faxed to the cancer center at [facility]. Patient to follow with Dr. Liu. Release [...] CHANA LEE on 04/05/[address] [facility] OBSOLETEon 01-11-2021 OBSOLETE Refill (HEMASA) -- MABEL MOSER ([id number]) 1960 F Date Time Provider Department 01/11/21 [...] kidney disease) stage 3, GFR 30-59 ml/min ([facility]) [N18.30] Order(s):cyanocobalamin 1,000 mcg/mLINJECT 1 ML INTRAMUSCULARLY [...] intramuscularly once every month. Encounter Status:Closed by YEVGENIY FORD on 01/12/[address] [facility] Vital Signs Date Time Vital Sign Value Performing Clinician Facility 04-04-2023 16:20-0400 Body height 158.75 cm Raeann Kirkpatrick Other [facility] Other 04-04-2023 16:20-0400 Body mass index (BMI) [Ratio] 31.46 kg/m2 Raeann Mishras Other [facility] Other 04-04-2023 16:20-0400 Body temperature 98 [degF] Raeann Mishras Other [facility] Other 04-04-2023 16:20-0400 Body weight 79.29 kg Raeann Mishras Other [facility] Other 04-04-2023 16:20-0400 Diastolic blood pressure 81 mm[Hg] Raeann Mishras Other [facility] Other 04-04-2023 16:20-0400 Respiratory rate 18 /min Raeann Mishras Other [facility] Other 04-04-2023 16:20-0400 SaO2% (BldA) [Mass fraction] 98 % Raeann Mishras Other [facility] Other 04-04-2023 16:20-0400 Systolic blood pressure 133 mm[Hg] Azariel Mishras Other [facility] Other 10-28-2022 22:23-0400 Body temperature 97.4 [degF] MD Angle Santana Work Phone: [facility] 10-28-2022 22:00-0400 Diastolic blood pressure 74 mm[Hg] MD Angle Santana Work Phone: [facility] 10-28-2022 22:00-0400 Heart rate 72 /min MD Angle Santana Work Phone: [facility] 10-28-2022 22:00-0400 Respiratory rate 20 /min MD Angle Santana Work Phone: [facility] 10-28-2022 22:00-0400 SaO2% (BldA) [Mass fraction] 97 % MD Angle Santana Work Phone: [facility] 10-28-2022 22:00-0400 Systolic blood pressure 169 mm[Hg] MD Angle Santana Work Phone: [facility] 10-28-2022 17:54-0400 Body height 157.48 cm MD Angle Santana Work Phone: [facility] 10-28-2022 17:54-0400 Body weight 83.7 kg MD Angle Santana Work Phone: [facility] 09-27-2022 12:00-0400 Body height 158.75 cm Raeann ScoopStake Other [facility] Other 09-27-2022 12:00-0400 Body mass index (BMI) [Ratio] 31.78 kg/m2 Donnieariel [employer] Other [facility] Other 09-27-2022 12:00-0400 Body temperature 96.1 [degF] Raeann [employer] Other [facility] Other 09-27-2022 12:00-0400 Body weight 80.11 kg [employer]iel [employer] Other [facility] Other 09-27-2022 12:00-0400 Diastolic blood pressure 82 mm[Hg] Azariel [employer] Other [facility] Other 09-27-2022 12:00-0400 Respiratory rate 18 /min Azariel Bakhous Other [facility] Other 09-27-2022 12:00-0400 SaO2% (BldA) [Mass fraction] 99 % Aziz Bakhous Other [facility] Other 09-27-2022 12:00-0400 Systolic blood pressure 140 mm[Hg] Aziz Bakhous Other [facility] Other 04-12-2022 14:00-0400 Body height 158.75 cm Aziz Bakhous Other [facility] Other 04-12-2022 14:00-0400 Body mass index (BMI) [Ratio] 30.13 kg/m2 Azariel Bakhous Other [facility] Other 04-12-2022 14:00-0400 Body temperature 97.6 [degF] Aziz Bakhous Other [facility] Other 04-12-2022 14:00-0400 Body weight 75.93 kg Azariel Bakhous Other [facility] Other 04-12-2022 14:00-0400 Diastolic blood pressure 95 mm[Hg] Aziz Bakhous Other [facility] Other 04-12-2022 14:00-0400 Respiratory rate 18 /min Aziz Bakhous Other [facility] Other 04-12-2022 14:00-0400 SaO2% (BldA) [Mass fraction] 98 % Aziz Bakhous Other [facility] Other 04-12-2022 14:00-0400 Systolic blood pressure 175 mm[Hg] Raeann Kirkpatrick Other [facility] Other 06-16-2021 16:20-0500 Body height 158.75 cm Los Grissom Other [facility] Other 06-16-2021 16:20-0500 Body mass index (BMI) [Ratio] 30.88 kg/m2 Los Grissom Other [facility] Other 06-16-2021 16:20-0500 Body temperature 96.4 [degF] Los Grissom Other [facility] Other 06-16-2021 16:20-0500 Body weight 77.84 kg Los Grissom Other [facility] Other 06-16-2021 16:20-0500 Diastolic blood pressure 88 mm[Hg] Los Grissom Other [facility] Other 06-16-2021 16:20-0500 Respiratory rate 18 /min Los Grissom Other [facility] Other 06-16-2021 16:20-0500 SaO2% (BldA) [Mass fraction] 99 % Los Grissom Other [facility] Other 06-16-2021 16:20-0500 Systolic blood pressure 137 mm[Hg] Los Grissom Other [facility] Other Encounters Encounter Date Encounter Type Care Provider Facility Start: 04-04-2023 End: 04-04-2023 ambulatory Aziz Bakhous Other [facility] Other Start: 04-04-2023 Office outpatient visit 25 minutes Aziz Bakkendalls [facility] Start: 04-03-2023 End: 04-03-2023 ambulatory Aziz Bakhous Other [facility] Other Start: 04-03-2023 Telephone encounter Azariel Bakkendalls [facility] Start: 02-22-2023 End: 02-[facility]: 02-16-2023 ambulatory DUNCAN DENNIS [facility] Start: 01-13-2023 End: 01-14-2023 ambulatory SHERLY [facility] Start: 12-15-2022 End: 12-16-2022 ambulatory [facility] Start: 12-12-2022 End: 12-12-2022 ambulatory Azariel Mishras Other [facility] Other Start: 12-12-2022 Telephone encounter Raeann Mishras [facility] Start: 12-08-2022 End: 12-08-2022 ambulatory Raeann Mishras Other [facility] Other Start: 12-08-2022 Telephone encounter Raeann Mishras [facility] Start: 11-30-2022 End: 11-30-2022 ambulatory [facility] Start: 11-22-2022 End: 11-22-[address] ANGLE SANTANA . Facility:[facility] Start: 11-22-2022 End: 11-22-2022 ambulatory SADIE DEL CASTILLO . Facility:[facility] Start: 11-16-2022 End: 11-16-[address] ANGLE SANTANA . Facility:[facility] Start: 11-07-2022 End: 11-07-2022 ambulatory [facility] Start: 11-04-2022 End: 11-05-2022 ambulatory NARENDRANATH CHIDISHMIPATHY . Facility:[facility] Start: 11-03-2022 End: 11-03-[address] ANGLE SANTANA . Facility:[facility] Start: 10-31-2022 ambulatory SANTOS ROUSSEAU . Facili ty:[facility] Start: 10-28-2022 End: 10-29-2022 Emergency department patient visit Angle Santana Facility:[facility] Start: 10-28-2022 End: 10-28-2022 Emergency department patient visit MD Angle Santana Work Phone: [facility] Work Phone: Start: 10-28-2022 End: 10-28-2022 ambulatory RHIANNON [facility] Start: 10-27-2022 End: 10-28-2022 ambulatory SADIE PHOENIXMIPATHKristen [...] Start: 10-10-2022 End: 10-10-2022 ambulatory ZANDRA GONZALEZ [facility] Start: 10-05-2022 End: 10-07-[address] ANGLE SANTANA . Facility:[facility] Start: 10-05-2022 ambulatory FELECIA MILIAN . Facility: [facility] Start: 09-29-2022 End: 10-04-[address] ANGLE SANTANA . Facility:[facility] Start: 09-27-2022 End: 09-27-2022 ambulatory Raeann Kirkpatrick Other [facility] Other Start: 09-27-2022 Office outpatient visit 25 minutes Raeann Kirkpatrick [facility] Start: 09-21-2022 End: 09-22-[address] ANGLE SANTANA . Facility:[facility] Start: 09-20-2022 End: 09-21-2022 ambulatory SADIE DEL CASTILLO . Facility:[facility] Start: 09-19-2022 End: 09-20-[address] ANGLE SANTANA . Facility:[facility] Start: 09-19-2022 End: 09-20-2022 ambulatory RAEANN KIRKPATRICK Facility:[facility] Start: 08-24-2022 End: 09-12-[address] ANGLE SANTANA . Facility:[facility] Start: 08-23-2022 End: 08-23-2022 ambulatory Sue Leiva Other [facility] Other Start: 08-23-2022 Office outpatient ne w 30 minutes Sue Leiva [facility] Start: 08-16-2022 End: 08-17-2022 ambulatory [...] 04-12-2022 End: 04-12-2022 ambulatory Raeann Kirkpatrick Other [facility] Other Start: 04-12-2022 Office outpatient visit 25 [...] Start: 01-10-2022 End: 01-11-2022 ambulatory Robert Johnston Facility:[facility] Start: 01-06-2022 End: 01-07-[address] ANGLE SANTANA . Facility:[facility] Start: 12-30-2021 End: 01-19-[address] ANGLE SANTANA . Facility:[facility] Start: 12-23-2021 End: 12-24-2021 ambulatory NNAMDI DEJESUS . Facility:[facility] Start: 12-07-2021 End: 12-22-[address] ANGLE SANTANA . Facility:[facility] Start: 12-07-2021 End: 12-07-[address] ANGLE SANTANA . Facility:[facility] Start: 08-19-2021 End: 08-20-2021 ambulatory CARLOS REZA Facility:[facility] Start: 06-16-2021 End: 06-16-2021 ambulatory Los Grissom Other [facility] Other Start: 06-16-2021 Office outpatient visit 25 minutes Los Grissom [facility] Start: 01-14-2019 End: 01-14-2019 Patient encounter procedure [facility] Start: 12-03-2018 End: 12-03-2018 Patient encounter procedure [facility] Procedures Date Procedure Procedure Detail [...] Detail Author Patient Education Heart Failure ED [facility] Work Phone: Patient referral [facility] Work Phone: Payers Date Payer Category Payer Self-pay [id number] 2017 Medicare [id number] 2017 Unknown [id number] 1960 Unknown [id number] 2.16.8 40.1.065692.3.579.2.173 1960 Unknown [id number] 2.16.8 40.1.586389.3.579.2.173 1960 Unknown [id number] 2.16.8 40.1.748775.3.579.2.647 1960 Unknown [id number] 2.16.8 40.1.230997.3.579.2.647 1960 Unknown [id number] 2.16.84 0.1.398782.3.579.2.593 1960 Unknown [id number] 2.16.84 0.1.521141.3.579.2.593 1960 Unknown [id number] 2.16.84 0.1.794828.3.579.2.593 1960 Unknown [id number] 2.16.84 0.1.513311.3.579.2.593 1960 Unknown [id number] 2.16.84 0.1.027310.3.579.2.593 1960 Unknown [id number] 2.16.84 0.1.181690.3.579.2.593 1962 Unknown [id number] 2.16.84 0.1.429020.3.579.2.593 1962 Unknown [id number] 2.16.84 0.1.016251.3.579.2.593 1962 Unknown [id number] 2.16.84 0.1.927090.3.579.2.593 1962 Unknown [id number] 2.16.84 0.1.443494.3.579.2.593 1962 Unknown [id number] 2.16.84 0.1.425801.3.579.2.593 1962 Unknown [id number] 2.16.84 0.1.789523.3.579.2.593 1962 Unknown [id number] 2.16.84 0.1.498532.3.579.2.593 1960 Unknown [id number] 2.16.84 0.1.605656.3.579.2.593 1960 Unknown [id number] 2.16.84 0.1.560001.3.579.2.593 1962 Unknown [id number] 2.16.84 0.1.776422.3.579.2.593 1960 Unknown [id number] 2.16.84 0.1.007127.3.579.2.593 1960 Unknown [id number] 2.16.84 0.1.817213.3.579.2.593 1962 Unknown [id number] 2.16.84 0.1.613766.3.579.2.593 1962 Unknown [id number] 2.16.84 0.1.878755.3.579.2.593 1962 Unknown [id number] 2.16.84 0.1.819971.3.579.2.593 1960 Unknown [id number] 2.16.84 0.1.251690.3.579.2.593 1962 Unknown [id number] 2.16.84 0.1.569309.3.579.2.593 1962 Unknown [id number] 2.16.84 0.1.537557.3.579.2.593 1962 Unknown [id number] 2.16.84 0.1.501437.3.579.2.593 1962 Unknown [id number] 2.16.84 0.1.635527.3.579.2.593 1962 Unknown [id number] 2.16.84 0.1.912686.3.579.2.593 1960 Unknown [id number] 2.16.84 0.1.860164.3.579.2.593 1962 Unknown [id number] 2.16.84 0.1.694538.3.579.2.593 1962 Unknown [id number] 2.16.84 0.1.051705.3.579.2.593 1962 Unknown [id number] 2.16.84 0.1.288390.3.579.2.593 1962 Unknown [id number] 2.16.84 0.1.535394.3.579.2.593 1960 Unknown [id number] 2.16.84 0.1.264605.3.579.2.593 1960 Unknown [id number] 2.16.84 0.1.419612.3.579.2.593 1960 Unknown [id number] 2.16.84 0.1.135629.3.579.2.593 1960 Unknown [id number] 2.16.84 0.1.199852.3.579.2.593 1960 Unknown [id number] 2.16.84 0.1.604504.3.579.2.593 1960 Unknown [id number] 2.16.84 0.1.507777.3.579.2.593 1960 Unknown [id number] 2.16.84 0.1.045196.3.579.2.593 1960 Unknown [id number] 2.16.84 0.1.833637.3.579.2.593 1960 Unknown [id number] 2.16.84 0.1.444690.3.579.2.593 1960 Unknown [id number] 2.16.84 0.1.959356.3.579.2.593 1960 Unknown [id number] 2.16.84 0.1.925140.3.579.2.593 1960 Unknown [id number] 2.16.84 0.1.077531.3.579.2.593 1960 Unknown [id number] 2.16.84 0.1.562048.3.579.2.593 1960 Unknown [id number] 2.16.84 0.1.409064.3.579.2.593 1957 Medicaid [id number] Medicare Medicare [id number] Unknown [id number] 2.1 [id number] Unknown Aron BC/BS [id number] Unknown [id number] 2.16.8 40.1.189693.3.579.2.531 Social History Date Type Detail Facility Unknown if ever smoked [employer] Other Sex Assigned At Sex Assigned At Bir th [employer] Other Start: 10-28-2022 Tobacco smoking status NHIS Never smoked tobacco (finding) [facility] Start: 1960 Sex Assigned At Female F [facility] Clinical Notes 06-16-2021 to 04-04-2023 Note [...] G43.519) Advised the patient to follow with [facility] neurology clinic Mar, Chronic kidney disease, stage [...] (ICD-10 - E83.39) Continue PhosLo with meals [employer] Other [id number] NoteRemains stable without worsening symptomsUnMiami Valley Hospital08-30-2023 NoteCoronary artery disease is stable Continue GDMT continue risk factor modifications- heart healthy diet, regular exercise as tolerated and continue all medications.[facility] 02-22-2023 NoteNYHC II Continue GDMT- entresto- metoprolol and aldactone have been dc's r/t hypotension. Diuretic therapy- bumex 2 mg bid- Monitor daily weights, I&O, fluid restriction 1.5-2L/day, renal function and electrolytes- please maintain K+>4 and Mg > 2UnMiami Valley Hospital 02-22-2023 NoteRCRI- 0???points Class I Risk 3.9???% 30-day risk of , [place], or cardiac arrest From a cardiology perspective pt may proceed with Total knee arthroplasty with Dr Dennis, she is a low to moderate risk for a low to mod risk orthopedic surgery. She does not take any Aspirin, or anticoagulation. Please monitor hemodynamics carefully and prevent any major fluid shifts.[facility]08-30-2023 NotePatient here for 2 mo follow up pulmonary hypertension and hypertension. She was admitted to [facility] twice this past month. She needs cleared for knee replacement surgery with Dr. Dennis. Denies chest pain, lightheadedness, and palpitations. Says SOB is improving. Review of Systems Constitutional: Positive for malaise/fatigue. Cardiovascular: Positive for dyspnea on exertion (improving). Musculoskeletal: Positive for arthritis, back pain and joint pain. All other systems reviewed and are negative.[facility] 02-22-2023 NoteUTP CARDIOLOGY PROGRESS NOTE HPI: Mabel Moser is a 62 y.o. female here for pre surgery risk stratification Patient here for 2 mo follow up pulmonary hypertension and hypertension. She was admitted to [facility] twice this past month. She needs cleared [...] is alert and or (more content not included)...[facility]08-24-2023 NoteSubjective: Patient ID: Mabel Moser is a [...] History: Diagnosis Date CHF (congestive heart failure) ([facility]) Coronary artery disease Heart valve disease There [...] requested to proceed with surgery. Oneal Downey, [address] 02/16/23 As the teaching physician, I have personally performed or re-performed the history of present illness, physical exam and medical decision-making activities of the encounter and verified the medical student's documentation. I made pertinent changes as necessary to ensure accurate documentation. Additional Comments: [facility]07-21-2023 NoteData Mabel Haynes Shanti 1960 Chief Complaint [...] physical therapy specifically wasdoing aquatic therapy, at [facility] with mild improvement. patient has had injections in the past, and did have some improvement however feels that getting significant improvement with these. She is interested in considering surgical intervention. Of Note, she did have a R. Total knee arthroplasty about 8 years at [facility]. Patient is also complaining of Left hip pain that worsened about a year ago after she had a fall. She did have x-rays completed after this, and was told that she had a chip off of her bone. . She saw Dr. Barajas at [facility] who recommended continiues conservative management. Hip pain rated as a 4-5/10. Most of her pain on the outer aspect of the hip. No prior injections or focused PT for the hip. Past Medical History: Diagnosis Date CHF (congestive heart failure) ([facility]) Coronary artery disease Heart valve disease History [...] in detail including differentia (more content not included)...[facility]06-22-2023 Note [place] [facility] Subjective Mabel Moser is a [...] In the past she was admitted to [facility] in 2019 with fluid overload and [...] not ill-appearing. HENT: H (more content not included)...[facility]06-07-2023 NotePt insists right subclavian chest port is accessed for procedure. 4CD RN at bedside to access. RN is not able to access. Li RN CVL spoke with Dr Hidalgo and pt can go to lab rn without IV access for RHC.[facility]06-07-2023 NotePatient: Mabel Moser Procedure Information Date/Time: 11/30/22 1300 Procedure: Right heart cath Location: [facility] S[facility]IOR [facility]ELOPER 3 / [facility] VASCULAR [facility] (Cath) Providers: Benjie Hidalgo [...] products. Plan discussed with fellow. Additional Equipment RequestsUnMiami Valley Hospital05-15-2023 Note [place] [facility] - [facility] Subjective Mabel Moser is a 62 y.o. year old female patient being seen for 2 week follow up per Sofie Bernard CNP. She says since she was last seen on 10/28, Dr. Santana increased her Entresto to 97-103mg bid, metoprolol to 50mg TID, and hydralazine to 100mg TID. Says she was in [facility] ED again last Monday with a BP [...] In the past she was admitted to [facility] in 2019 with fluid overload and [...] is no distension. Pal (more content not included)...[facility]05-05-2023 NoteHeadaches today and to be evaluated in ED- worst H/A I have ever had. [facility]05-05-2023 NoteCoronary artery disease is stable Continue GDMTUnMiami Valley Hospital05-05-2023 NoteHypertension is uncontrolled with c/o worst headache ever- recommended pt to be evaluated in EDUniJ.W. [facility]05-05-2023 NoteContinue to monitor with echoUnMiami Valley Hospital05-05-2023 NoteNYHC- IV- SOB with rest and + Orthopnea, volume overloaded on exam despite Bumex 1 mg po tid and increased renal function. Noted elevated rt sided pressures with RVSP 59 and dilated RV on Echo 09/21/22- She has h/o PE in the past and currently on ASA. CR was increasing on labs noted 10/26/22- CR 1.68/BUN 45 at admit was 1.23/ 38 [facility]05-05-2023 NotePatient here for follow up [facility] ED on 10/24/2022 for fluid overload. She [...] light-headedness. All other systems reviewed and are negative.[facility] 10-28-2022 NoteUTP CARDIOLOGY PROGRESS NOTE HPI: Mabel Moser is a 62 y.o. female here for hospital f/u Patient here for follow up [facility] ED on 10/24/2022 for fluid overload. She [...] in the morning, afternoon, and at bedtime. uuwrkngczf-izcqbilleopwy-zgwj (Esgic) 50-325-40 mg capsule weqqcxblsn-rcqxhfsbnihlv-uzfozhtd 50 mg-325 mg-40 mg capsule butorphanol (Stadol) [...] hypertension Hypertension is uncontrolle (more content not included)...[facility]04-17-2023 NoteCardiovascular Medicine [facility] SUBJECTIVE Chief Complaint Patient presents with Congestive Heart Failure Re-establish care HPI Mabel Moser is a 62 y.o. female here to re-establish care. She was recently discharged from [facility] for fluid overload. Her weight went up [...] She follows with a kidney specialist at [facility]. Her leg swelling has improved but she [...] She has been admitted in 07/2018 to [facility] with dyspnea, fluid overload and was diuresed. [...] kidney disease) stage 3, GFR 30-59 ml/min ([facility]) Closed fracture of trochanter of femur ([facility]) Clostridium difficile colitis Coronary arteriosclerosis Diffuse thyroid [...] vitamin B12 deficiency Pulmona (more content not included)...[facility] 10-10-2022 NoteNew patient here to re-establish care. She was last seen in [address] Hidalgo. She was discharged 10/07/2022 from [facility] for fluid overload. Had echo 09/21/2022. Says PCP put her on Entresto a few months ago, and recently decreased her dose due to hyperkalemia per patient. Review of Systems Constitutional: Positive for malaise/fatigue. Cardiovascular: Positive for dyspnea on exertion, leg swelling and palpitations. Musculoskeletal: Positive for arthritis, back pain and joint pain. Neurological: Positive for light-headedness. All other systems reviewed and are negative.[facility] 09-27-2022 Evaluation note* Encounter Date Diagnosis Assessment [...] the patient to discuss this with Dr. Chouduhry. Volume status well controlled. On Bumex and [...] G43.519) Advised the patient to follow with [facility] neurology clinic [facility] [employer] Other 03-28-2023 NoteThe [facility] CenterTthmntql03-25-6953 Evaluation note* Encounter Date Diagnosis Assessment Notes Treatment Notes Treatment Clinical Notes Jul, Contusion of right wrist, initial encounter (ICD-10 - S60.211A) Patient placed in cock up wrist splint. Activities 2-5 lbs ADLs [facility] Other 12-13-2022 NoteThe [facility] [id number] NoteThe [facility] [id number] NoteThe [facility] CenterTqnbcuos21-15-3120 Evaluation note * Encounter Date Diagnosis Assessment [...] pressure. Advised the patient to follow-up with [facility] neurology clinic I will try to reach to Dr. Santana's office about fludrocortisone I would continue same blood pressure medications. Advised the patient to follow a low-salt diet and to monitor her blood pressure at home Mar, Migraine aura, persistent, intractable (ICD-10 - G43.519) Advised the patient to follow with [facility] neurology clinic [facility] Other 08-04-2022 NoteThe [facility]view Medical [id number] NoteSelect [facility] Evaluation note* Encounter Date Diagnosis Assessment Notes [...] off all diuretics metolazone, spironolactone and bumetanide. [facility] Other Evaluation noteNo assessment information available [facility] Work Phone: Evaluation noteNo InformationNort [employer] Other History general Narrative - Reported* Type [...] History COVID 05/2020 Hospitalization History COVID 04/2021 [facility] Other Hisjlnd general Narrative - Reported* Type Description Date [...] History COVID 05/2020 Hospitalization History COVID 04/2021 [facility] Other History general Narrative - Reported* Type [...] 04/2021 Hospitalization History ELEVATED POTASSIUM LEVEL 09/19/2022 [facility] Other Summary Purpose Family History No Family [...] AUTHOR AUTHOR'S ORGANIZ ATION 07/24/[address] [facility] DATE CREATED AUTHOR AUTHOR'S ORGANIZ ATION 01/17/2022 [facility] DATE CREATED AUTHOR AUTHOR'S ORGANIZ ATION 11/07/2022 [facility] DATE CREATED AUTHOR AUTHOR'S ORGANIZ ATION 12/05/2022 [facility] DATE CREATED AUTHOR AUTHOR'S ORGANIZ ATION 02/10/2023 [facility] DATE CREATED AUTHOR AUTHOR'S ORGANIZ ATION [address] [facility] REASON FOR VISIT (unrecogniz ed section and [...] BE BASED ON THE PRIMARY CLINICAL RECORDS. [employer] [facility]. provides no warranty or guarantee of the accuracy or completeness of information in this document.
--- NOTE | 2023-06-22 12:43 | PM.CN ---
Consult Note: HPI Data of Consult Requesting Physician: Louann [place] NP Primary Care Provider: Yuri Godinez MD Consult Narrative Reason for consult: f/u Narrative: Mabel Moser a pleasant 63 year old female presents for evaluation and management of chronic pain. Today pain 3/10 in neck, describes as an ache. Recently underwent bilateral C4/5 C5/6 medial facet branch block #1 with 90% improvement immediately after and 2 days following the procedure. Pain today in neck is 3/10 but she is experiencing 10/10 lumbar pain and weakness, numbness, tingling to right leg greater than 2 weeks unresponsive to PT/HEP, and numerous medications. cc:: CC: Louann [place] NP Review of Systems ROS Status of ROS 10 or more systems reviewed and unremarkable except as noted in history and below Musculoskeletal Reports: back pain and neck pain PFSH PFSH Medical History (Updated 06/22/23 @ 12:58 by Louann Jackson NP) Depression ?F32.A - Depression, unspecified (ICD-10) Gastroenteritis ?K52.9 - Noninfective gastroenteritis and colitis, unspecified (ICD-10) Migraine without aura and without status migrainosus, not intractable ?G43.009 - Migraine without aura, not intractable, without status migrainosus (ICD-10) Chronic heart failure with preserved ejection fraction (HFpEF) ?I50.32 - Chronic diastolic (congestive) heart failure (ICD-10) Chest pain ?R07.9 - Chest pain, unspecified (ICD-10) Dyspnea ?R06.00 - Dyspnea, unspecified (ICD-10) Fluid overload ?E87.70 - Fluid overload, unspecified (ICD-10) Osteoarthritis ?M19.90 - Unspecified osteoarthritis, unspecified site (ICD-10) Anemia ?D64.9 - Anemia, unspecified (ICD-10) Anxiety ?F41.9 - Anxiety disorder, unspecified (ICD-10) Stroke ?I63.9 - Cerebral infarction, unspecified (ICD-10) Acid reflux ?K21.9 - Gastro-esophageal reflux disease without esophagitis (ICD-10) Hypothyroid ?E03.9 - Hypothyroidism, unspecified (ICD-10) Kidney failure ?N19 - Unspecified kidney failure (ICD-10) COPD (chronic obstructive pulmonary disease) ?J44.9 - Chronic obstructive pulmonary disease, unspecified (ICD-10) Asthma ?J45.909 - Unspecified asthma, uncomplicated (ICD-10) CHF (congestive heart failure) ?I50.9 - Heart failure, unspecified (ICD-10) Irregular heart beat ?I49.9 - Cardiac arrhythmia, unspecified (ICD-10) HTN (hypertension) ?I10 - Essential (primary) hypertension (ICD-10) Heart attack ?I21.9 - Acute myocardial infarction, unspecified (ICD-10) Lumbar spondylosis ?M47.816 - Spondylosis without myelopathy or radiculopathy, lumbar region (ICD-10) Surgical History H/O gastric bypass ?Z98.84 - Bariatric surgery status (ICD-10) H/O hysterectomy with oophorectomy History of appendectomy ?Z90.49 - Acquired absence of other specified parts of digestive tract (ICD-10) History of hernia repair ?Z98.890 - Other specified postprocedural states (ICD-10) ?Z87.19 - Personal history of other diseases of the digestive system (ICD-10) History of right knee joint replacement ?Z96.651 - Presence of right artificial knee joint (ICD-10) History of rotator cuff surgery ?Z98.890 - Other specified postprocedural states (ICD-10) Hx of cholecystectomy ?Z90.49 - Acquired absence of other specified parts of digestive tract (ICD-10) Family History Father Family history of CHF (congestive heart failure) Family history of diabetes mellitus Family history of hypertension Family history of myocardial infarction Family history of stroke Mother Family history of CHF (congestive heart failure) Family history of COPD (chronic obstructive pulmonary disease) Family history of diabetes mellitus Family history of hypertension Family history of myocardial infarction Family history of stroke Social History Within the past year, how often did you have a drink containing alcohol: never Within the past year, how often did you have six or more drinks on one occasion: never Score interpretation: A score less than 3 is consistent with normal alcohol consumption. 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 Highest level of school completed/degree received: some college, no degree Are you now , , , , never or living with a partner: In a typical week, how many times do you talk on the telephone with family, friends, or neighbors: 3 or more times per week How often do you get together with friends or relatives: twice per week How often do you attend christian or methodist services: 4 or more times per year Do you belong to any clubs or organizations such as christian groups unions, [employer] or athletic groups, or school groups: no Total score: 3 Score interpretation: A score of greater than or equal to 2 indicates the lowest level of social isolation. Little interest or pleasure in doing things: not at all Feeling down, depressed, or hopeless: several days Feel stressed/tense/nervous/anxious/difficulty sleeping: to some extent Life stressors: recent of family or friend Do you think of yourself as: straight/heterosexual Gender Identity: female Meds Home Medications and Allergies Home Medications Medication Instructions Recorded Confirmed Type alprazolam 0.5 mg tablet 0.5 mg PO BID 12/08/22 06/15/23 History amitriptyline 150 mg tablet 150 mg PO BEDTIME 12/08/22 06/15/23 History calcium acetate(phosphat bind) 667 667 mg PO BID 12/08/22 06/15/23 History mg capsule fentanyl 100 mcg/hr transdermal 1 patch transdermal Q72H 12/08/22 06/15/23 History patch levothyroxine 100 mcg tablet 100 mcg PO DAILY 12/08/22 06/15/23 History linaclotide 290 mcg capsule 290 mcg PO DAILY 12/08/22 06/15/23 History (Linzess) liothyronine 25 mcg tablet 25 mcg PO DAILY 12/08/22 06/15/23 History metoclopramide HCl 10 mg tablet 10 mg PO QID PRN nausea and 12/08/22 06/15/23 History vomiting metoprolol tartrate 50 mg tablet 50 mg PO BID PRN hypertension 12/08/22 06/15/23 History (Lopressor) ondansetron HCl 4 mg tablet 4 mg PO TID-QID PRN nausea and 12/08/22 06/15/23 History vomiting oxycodone-acetaminophen 5 mg-325 2 tab PO Q6H 12/08/22 06/15/23 History mg tablet pantoprazole 40 mg tablet,delayed 40 mg PO BID 12/08/22 06/15/23 History release primidone 50 mg tablet 100 mg PO BEDTIME 12/08/22 06/15/23 History tizanidine 4 mg tablet (Zanaflex) 4 mg PO Q6H 12/08/22 06/15/23 History aripiprazole 2 mg tablet (Abilify) 2 mg PO DAILY 01/23/23 06/15/23 History bumetanide 1 mg tablet 4 mg PO QDAY 01/23/23 06/15/23 History loratadine 10 mg tablet (Claritin) 10 mg PO DAILY 01/23/23 06/15/23 History sacubitril 97 mg-valsartan 103 mg 1 tab PO BID 01/23/23 06/15/23 History tablet (Entresto) pramipexole 1 mg tablet (Mirapex) 1 mg PO .evening 01/24/23 06/15/23 History spironolactone 50 mg tablet 50 mg PO DAILY PRN swelling 01/24/23 06/15/23 History (Aldactone) albuterol sulfate 2.5 mg/3 mL 2.5 mg inhalation Q4H PRN 02/03/23 06/15/23 History (0.083 %) solution for nebulization bronchospasm afelyzbpjc-knbrowhzqzpox-rnitjvdv 1 cap PO Q6H PRN pain 02/03/23 06/15/23 History 50 mg-325 mg-40 mg capsule butorphanol 10 mg/mL nasal spray 1 spray intranasal BID PRN pain 02/03/23 06/15/23 History fluticasone furoate 100 1 inh inhalation Q24H 02/03/23 06/15/23 History mcg-vilanterol 25 mcg/dose inhalation powder (Breo Ellipta) Allergies Allergy/AdvReac Type Severity Reaction Status Date / Time povidone-iodine Allergy Intermediate Verified 04/11/23 09:44 [From Betadine] amoxicillin [From Augmentin] Allergy Mild Vomiting Verified 04/11/23 09:44 clavulanic acid Allergy Mild Vomiting Verified 04/11/23 09:44 [From Augmentin] Sulfa (Sulfonamide Allergy Mild Vomiting Verified 04/11/23 09:44 Antibiotics) ciprofloxacin [From Cipro] Allergy Unknown Verified 04/11/23 09:44 Exam Constitutional Documenting provider has reviewed patient's vital signs: yes Common normals: no apparent distress, oriented x3, healthy appearing, alert and well nourished General appearance: cooperative HENMT Common normals: normocephalic, hearing grossly normal bilaterally and moist oral mucous membranes Head and scalp: normocephalic Eye Common normals: PERRL Pupil: PERRL Neck & C-Spine Common normals: full ROM General: normal visual inspection Cervical spine: pain with cervical ROM Other: facet loading positive bilaterally no radiculopathy strength 5/5 in BUE Chest Common normals: inspection of chest normal Respiratory Common normals: normal respiratory effort, no retractions and no use of accessory muscles Back & Pelvis Thoracic spine/upper back: pain with ROM Lumbar spine/lower back: pain with ROM and straight leg raise positive right Other: strength 4/5 in RLE numbness to right L4/5/S1 dermatomal pattern on exam Extremity Common normals: normal to inspection Neuro Common normals: oriented x3, CN's II-XII intact bilaterally, moves all extremities, no focal motor deficits, no sensory deficits noted and deep tendon reflexes 2+ bilaterally Sensorium/orientation: alert Gait (neuro): antalgic and assistive device used walker Motor exam: no movement abnormalities noted and strength abnormal (right lower extremity 4/5 ) Psych Common normals: mental status grossly normal, thought process normal, cooperative, affect normal, speech normal and activity/motor behavior normal Speech: normal speech Thought process: normal thought process Assessment and Plan Assessment and Plan (1) Cervical spondylosis: (2) Muscle spasm: (3) Lumbar radiculopathy: Plan defer bilateral C4-5 C5-6 medial facet branch block #2 at this time patient would like to address severe lumbar pain with radiculopathy, JAYLEN 89%. plan for L5-S1 ROBSON with Dr David follow up 2 weeks after injection
== END 2023-06-22 12:29 | disposition home or self-care (01) ==
LOC: PM 12:28
PROVIDERS: PCP Family Medicine; Visit Provider Nurse Practitioner
DX: M47.812 Spondylosis without myelopathy or radiculopathy, cervical region (principal); M62.838 Other muscle spasm; M54.16 Radiculopathy, lumbar region; I10 Essential (primary) hypertension; E87.1 Hypo-osmolality and hyponatremia
CPT/HCPCS: 36591; 80053; 83930; 85025; G0463

== ENCOUNTER 2023-06-29 15:58 | Emergency (ER) | payer MEDICARE, MEDICAID, SELFPAY ==
[2023-06-29] VITALS (17 sets, daily range): BP systolic 111; BP diastolic 64; PULSE 62–105; RESP 11–27; TEMP 36.4; O2SAT 71–98; BMI 32.9
--- NOTE | 2023-06-29 16:14 | ECG_ITS ---
The [facility] Test Date: 2023-06-29 Pat Name: JOSE CLEMENTS Department: Room: - Gender: Female Rn Coronary Care Unit: : 1960 Requested By: ANGLE SANTANA Order Number: [id number] Reading MD: ANGLE SANTANA Measurements Intervals [place] Rate: 80 P: 61 MA: 168 QRS: 17 QRSD: 96 T: 30 QT: 342 QTc: 378 Interpretive Statements 1100 Sinus rhythm 9110 normal ECG Compared to ECG 01/23/2023 16:00:07 No significant changes Electronically Signed On 06-30-2023 6:42:49 EST by ANGLE SANTANA
--- NOTE | 2023-06-29 16:14 | XR_ITS ---
The [address] [address] Patient Name: JOSE CLEMENTS MRN: [id number] date: 1960 Sex: F Assigned Patient Location: ED.MAIN Current Patient Location: ER Accession/Order Number: [id number] Exam Date: 06/29/2023 17:01 Report Date: 06/29/2023 17:27 At the request of: TERESSA GREGORY Procedure: XR chest 1V EXAM: XR chest 1V HISTORY: . SOB . COMPARISON: 01/23/2023 TECHNIQUE: Single view of the chest. FINDINGS: Heart and vascularity are unremarkable. There is a small amount of atelectasis in both bases. No focal infiltrates are noted. It infusion catheter is noted with the tip over the superior vena cava. EKG leads overlie the chest. XR/XR chest 1V Impression: Minimal atelectasis in both bases. 2. No infiltrates noted. 3. Infusion catheter in place. Electronically authenticated by: CARLOS PANDA Date: 06/29/2023 17:27
--- NOTE | 2023-06-29 16:15 | ED.SOB1 ---
HPI - SOB/Dyspnea General Chief Complaint: Shortness of Breath/Dyspnea Stated Complaint: DIFF BREATHING Time Seen by Provider: 06/29/23 16:03 Source: patient Mode of arrival: Wheelchair Limitations: no limitations History of Present Illness HPI Narrative: 63-year-old female presents for shortness of breath and swelling to her legs. She believes she has too much fluid. She has a history of chronic renal insufficiency and has never been on dialysis. She had some outpatient blood work and her BUN and creatinine were worse than her baseline. No fever or productive cough and she states her breathing is not bad. Related Data Home Medications Medication Instructions Recorded Confirmed alprazolam 0.5 mg tablet 0.5 mg PO BID 12/08/22 06/15/23 amitriptyline 150 mg tablet 150 mg PO BEDTIME 12/08/22 06/15/23 calcium acetate(phosphat bind) 667 667 mg PO BID 12/08/22 06/15/23 mg capsule fentanyl 100 mcg/hr transdermal 1 patch transdermal Q72H 12/08/22 06/15/23 patch levothyroxine 100 mcg tablet 100 mcg PO DAILY 12/08/22 06/15/23 linaclotide 290 mcg capsule 290 mcg PO DAILY 12/08/22 06/15/23 (Linzess) liothyronine 25 mcg tablet 25 mcg PO DAILY 12/08/22 06/15/23 metoclopramide HCl 10 mg tablet 10 mg PO QID PRN nausea and 12/08/22 06/15/23 vomiting metoprolol tartrate 50 mg tablet 50 mg PO BID PRN hypertension 12/08/22 06/15/23 (Lopressor) ondansetron HCl 4 mg tablet 4 mg PO TID-QID PRN nausea and 12/08/22 06/15/23 vomiting oxycodone-acetaminophen 5 mg-325 2 tab PO Q6H 12/08/22 06/15/23 mg tablet pantoprazole 40 mg tablet,delayed 40 mg PO BID 12/08/22 06/15/23 release primidone 50 mg tablet 100 mg PO BEDTIME 12/08/22 06/15/23 tizanidine 4 mg tablet (Zanaflex) 4 mg PO Q6H 12/08/22 06/15/23 aripiprazole 2 mg tablet (Abilify) 2 mg PO DAILY 01/23/23 06/15/23 bumetanide 1 mg tablet 4 mg PO QDAY 01/23/23 06/15/23 loratadine 10 mg tablet (Claritin) 10 mg PO DAILY 01/23/23 06/15/23 sacubitril 97 mg-valsartan 103 mg 1 tab PO BID 01/23/23 06/15/23 tablet (Entresto) pramipexole 1 mg tablet (Mirapex) 1 mg PO .evening 01/24/23 06/15/23 spironolactone 50 mg tablet 50 mg PO DAILY PRN swelling 01/24/23 06/15/23 (Aldactone) albuterol sulfate 2.5 mg/3 mL 2.5 mg inhalation Q4H PRN 02/03/23 06/15/23 (0.083 %) solution for nebulization bronchospasm wyajfbngxo-zpvmnpavbwqig-jfvelzik 1 cap PO Q6H PRN pain 02/03/23 06/15/23 50 mg-325 mg-40 mg capsule butorphanol 10 mg/mL nasal spray 1 spray intranasal BID PRN pain 02/03/23 06/15/23 fluticasone furoate 100 1 inh inhalation Q24H 02/03/23 06/15/23 mcg-vilanterol 25 mcg/dose inhalation powder (Breo Ellipta) Allergies Allergy/AdvReac Type Severity Reaction Status Date / Time povidone-iodine Allergy Intermediate Verified 06/29/23 16:05 [From Betadine] amoxicillin [From Augmentin] Allergy Mild Vomiting Verified 06/29/23 16:05 clavulanic acid Allergy Mild Vomiting Verified 06/29/23 16:05 [From Augmentin] Sulfa (Sulfonamide Allergy Mild Vomiting Verified 06/29/23 16:05 Antibiotics) ciprofloxacin [From Cipro] Allergy Unknown Verified 06/29/23 16:05 Review of Systems ROS Narrative A ten point review of systems is negative except as noted above. [facility] Medical History (Updated 06/29/23 @ 17:49 by Chapo Venegas MD) Depression ?F32.A - Depression, unspecified (ICD-10) Gastroenteritis ?K52.9 - Noninfective gastroenteritis and colitis, unspecified (ICD-10) Migraine without aura and without status migrainosus, not intractable ?G43.009 - Migraine without aura, not intractable, without status migrainosus (ICD-10) Chronic heart failure with preserved ejection fraction (HFpEF) ?I50.32 - Chronic diastolic (congestive) heart failure (ICD-10) Chest pain ?R07.9 - Chest pain, unspecified (ICD-10) Dyspnea ?R06.00 - Dyspnea, unspecified (ICD-10) Fluid overload ?E87.70 - Fluid overload, unspecified (ICD-10) Osteoarthritis ?M19.90 - Unspecified osteoarthritis, unspecified site (ICD-10) Anemia ?D64.9 - Anemia, unspecified (ICD-10) Anxiety ?F41.9 - Anxiety disorder, unspecified (ICD-10) Stroke ?I63.9 - Cerebral infarction, unspecified (ICD-10) Acid reflux ?K21.9 - Gastro-esophageal reflux disease without esophagitis (ICD-10) Hypothyroid ?E03.9 - Hypothyroidism, unspecified (ICD-10) Kidney failure ?N19 - Unspecified kidney failure (ICD-10) COPD (chronic obstructive pulmonary disease) ?J44.9 - Chronic obstructive pulmonary disease, unspecified (ICD-10) Asthma ?J45.909 - Unspecified asthma, uncomplicated (ICD-10) CHF (congestive heart failure) ?I50.9 - Heart failure, unspecified (ICD-10) Irregular heart beat ?I49.9 - Cardiac arrhythmia, unspecified (ICD-10) HTN (hypertension) ?I10 - Essential (primary) hypertension (ICD-10) Heart attack ?I21.9 - Acute myocardial infarction, unspecified (ICD-10) Lumbar spondylosis ?M47.816 - Spondylosis without myelopathy or radiculopathy, lumbar region (ICD-10) Surgical History H/O gastric bypass ?Z98.84 - Bariatric surgery status (ICD-10) H/O hysterectomy with oophorectomy History of appendectomy ?Z90.49 - Acquired absence of other specified parts of digestive tract (ICD-10) History of hernia repair ?Z98.890 - Other specified postprocedural states (ICD-10) ?Z87.19 - Personal history of other diseases of the digestive system (ICD-10) History of right knee joint replacement ?Z96.651 - Presence of right artificial knee joint (ICD-10) History of rotator cuff surgery ?Z98.890 - Other specified postprocedural states (ICD-10) Hx of cholecystectomy ?Z90.49 - Acquired absence of other specified parts of digestive tract (ICD-10) Family History Father Family history of CHF (congestive heart failure) Family history of diabetes mellitus Family history of hypertension Family history of myocardial infarction Family history of stroke Mother Family history of CHF (congestive heart failure) Family history of COPD (chronic obstructive pulmonary disease) Family history of diabetes mellitus Family history of hypertension Family history of myocardial infarction Family history of stroke Social History Within the past year, how often did you have a drink containing alcohol: never Within the past year, how often did you have six or more drinks on one occasion: never Score interpretation: A score less than 3 is consistent with normal alcohol consumption. 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 Highest level of school completed/degree received: some college, no degree Are you now , , , , never or living with a partner: In a typical week, how many times do you talk on the telephone with family, friends, or neighbors: 3 or more times per week How often do you get together with friends or relatives: twice per week How often do you attend jain or quaker services: 4 or more times per year Do you belong to any clubs or organizations such as jain groups unions, fraternal or athletic groups, or school groups: no Total score: 3 Score interpretation: A score of greater than or equal to 2 indicates the lowest level of social isolation. Little interest or pleasure in doing things: not at all Feeling down, depressed, or hopeless: several days Feel stressed/tense/nervous/anxious/difficulty sleeping: to some extent Life stressors: recent of family or friend Do you think of yourself as: straight/heterosexual Gender Identity: female Exam Narrative Exam Narrative: Nurses note and vital signs reviewed and patient is not hypoxic. General: The patient appears well and in no apparent distress. Patient is resting comfortably on cart. Skin: Warm, dry, no pallor noted. There is no rash noted. Head: Normocephalic, atraumatic Eye: Normal conjunctiva, no drainage Ears, Nose, Mouth, and Throat: oral mucosa is moist. Nares patent. Cardiovascular: Regular Rate and Rhythm Respiratory: Patient is in no distress, no accessory muscle use, lungs are clear to auscultation, no wheezing, rales or rhonchi Back: non-tender GI: Normal bowel sounds, no tenderness to palpation, no masses appreciated. No rebound, guarding, or rigidity noted. Musculoskeletal: bilateral lower extremity edema present Neurological: A&O, normal speech Psychiatric: Cooperative Constitutional Vital Signs, click to edit/add: Last Vital Signs Temp 97.6 F 06/29/23 16:05 Pulse 62 06/29/23 16:05 Resp 18 06/29/23 16:05 BP 111/64 06/29/23 16:05 Pulse Ox 94 L 06/29/23 16:05 O2 Del Method Room Air 06/29/23 16:05 Course Vital Signs Vital signs: Vital Signs Temperature 97.6 F 06/29/23 16:05 Pulse Rate 62 06/29/23 16:05 Respiratory Rate 18 06/29/23 16:05 Blood Pressure 111/64 06/29/23 16:05 Pulse Oximetry 94 L 06/29/23 16:05 Oxygen Delivery Method Room Air 06/29/23 16:05 Temperature 97.6 F 06/29/23 16:05 Pulse Rate 62 06/29/23 16:05 Respiratory Rate 18 06/29/23 16:05 Blood Pressure 111/64 06/29/23 16:05 Pulse Oximetry 94 L 06/29/23 16:05 Oxygen Delivery Method Room Air 06/29/23 16:05 MDM - SOB/Dyspnea MDM Narrative Medical decision making narrative: The patient has acute on chronic renal failure. Cause uncertain. I've discussed the case with the hospitalist that [facility] as well as her PCP and the patient is being transferred to [facility]. she is stable and agreeable for transfer. Differential Diagnosis Differential diagnosis: Likely congestive heart failure and other (acute kidney injury) Lab Data Attestation: I reviewed the patient's lab results. Labs: Lab Results 06/29/23 Range/Units 16:31 WBC 11.6 H (4.0-11.0) 10^3/uL RBC 3.10 L (4.20-5.40) 10^6/uL Hgb 9.8 L (12.0-16.0) g/dL Hct 31.9 L (36.0-48.0) % MCV 102.9 H (81.0-99.0) fL MCH 31.6 (26.7-34.0) pg MCHC 30.7 (29.9-35.2) g/dL RDW 14.3 (11.0-15.0) % Plt Count 259 (150-450) 10^3/uL MPV 8.9 L (9.5-13.5) fL Neut % (Auto) 88.9 H (43.0-75.0) % Lymph % (Auto) 4.5 L (20.5-60.0) % [place] % (Auto) 4.6 (1.7-12.0) % Eos % (Auto) 0.7 L (0.9-7.0) % Baso % (Auto) 0.3 (0.2-2.0) % Neut # (Auto) 10.4 H (1.4-6.5) 10^3/uL Lymph # (Auto) 0.5 L (1.2-3.8) 10^3/uL [place] # (Auto) 0.5 (0.3-0.8) 10^3/uL Eos # (Auto) 0.1 (0.0-0.7) 10^3/uL Baso # (Auto) 0.0 (0.0-0.1) 10^3/uL Abs Immat Gran (auto) 0.12 H (0.00-0.03) 10^3/uL Imm/Tot Granulo (auto) 1.0 H (0.0-0.5) % Sodium 130 L (136-145) mmol/L Potassium 5.1 (3.5-5.1) mmol/L Chloride 98 (98-107) mmol/L Carbon Dioxide 17.4 L (21.0-32.0) mmol/L Anion Gap 19.7 BUN 134.0 H* (7.0-18.0) mg/dL Creatinine 3.97 H (0.55-1.02) mg/dL Est GFR ( Amer) 14 L (>=60) Est GFR (Non-Af Amer) 11 L (>=60) BUN/Creatinine Ratio 33.8 Glucose 97 (74-106) mg/dL Calcium 9.0 (8.5-10.1) mg/dL Troponin I High Sens 9.8 (4.0-51.3) pg/mL Imaging Data Chest x-ray: Radiologist's impression: Procedure: XR chest 1V EXAM: XR chest 1V HISTORY: . SOB . COMPARISON: 01/23/2023 TECHNIQUE: Single view of the chest. FINDINGS: Heart and vascularity are unremarkable. There is a small amount of atelectasis in both bases. No focal infiltrates are noted. It infusion catheter is noted with the tip over the superior vena cava. EKG leads overlie the chest. Impression: Minimal atelectasis in both bases. 2. No infiltrates noted. 3. Infusion catheter in place. Electronically authenticated by: CARLOS PANDA Date: 06/29/2023 17:27 ECG Data Attestation: I personally reviewed and interpreted this ECG as follows: (EKG on my interpretation shows normal sinus rhythm with a rate of 80.) Discharge Plan Discharge Chief Complaint: Shortness of Breath/Dyspnea Clinical Impression: Acute kidney injury Patient Disposition: [facility] Time of Disposition Decision: 17:49 Discharge Location: [facility] Condition: Good Mode of Transportation: EMS
[2023-06-29 16:36] LABS: Basophils Percent Auto 0.3 % (0.2-2.0); Eosinophils Absolute Auto 0.1 10^3/uL (0.0-0.7); Eosinophils Percent Auto 0.7 % (0.9-7.0); Hematocrit 31.9 % (36.0-48.0); Hemoglobin 9.8 g/dL (12.0-16.0); Immature Granulocytes Abs Auto 0.12 10^3/uL (0.00-0.03); Lymphocytes Absolute Auto 0.5 10^3/uL (1.2-3.8); Lymphocytes Percent Auto 4.5 % (20.5-60.0); Mean Corpuscular HGB Conc 30.7 g/dL (29.9-35.2); Mean Corpuscular Hemoglobin 31.6 pg (26.7-34.0); Mean Corpuscular Volume 102.9 fL (81.0-99.0); Mean Platelet Volume 8.9 fL (9.5-13.5); Monocytes Absolute Auto 0.5 10^3/uL (0.3-0.8); Monocytes Percent Auto 4.6 % (1.7-12.0); Neutrophils Absolute Auto 10.4 10^3/uL (1.4-6.5); Neutrophils Percent Auto 88.9 % (43.0-75.0); Platelet Count 259 10^3/uL (150-450); Red Cell Distribution Width 14.3 % (11.0-15.0); White Blood Count 11.6 10^3/uL (4.0-11.0)
[2023-06-29 16:55] LABS: Anion Gap 19.7; BUN Creatinine Ratio 33.8; Carbon Dioxide 17.4 mmol/L (21.0-32.0); Chloride 98 mmol/L (98-107); Estimated GFR (African America 14 (>=60); Estimated GFR (Non-African Ame 11 (>=60); Glucose 97 mg/dL (74-106); Potassium 5.1 mmol/L (3.5-5.1); Sodium 130 mmol/L (136-145); Troponin I High Sensitivity 9.8 pg/mL (4.0-51.3)
--- NOTE | 2023-06-29 16:58 | PC.NURSE ---
Bilat lower extremity swelling last few weeks -- increased last night. Increase in SOB. lungs are clear.
[2023-06-29] MEDS: OXYCODONE HCL/ACETAMINOPHEN 5MG/325MG 1 TAB PO (18:08)
== END 2023-06-29 20:30 | disposition short-term general hospital (02) ==
PROVIDERS: Emergency Provider Emergency Medicine; PCP Family Medicine
DX: I13.0 Hypertensive heart and chronic kidney disease with heart failure and stage 1 through stage 4 chronic kidney disease, or unspecified chronic kidney disease (principal); N17.9 Acute kidney failure, unspecified; N18.9 Chronic kidney disease, unspecified; I50.32 Chronic diastolic (congestive) heart failure; F32.A Depression, unspecified; M19.90 Unspecified osteoarthritis, unspecified site; F41.9 Anxiety disorder, unspecified; E03.9 Hypothyroidism, unspecified; J44.9 Chronic obstructive pulmonary disease, unspecified; K21.9 Gastro-esophageal reflux disease without esophagitis; Z86.73 Personal history of transient ischemic attack (TIA), and cerebral infarction without residual deficits; I25.2 Old myocardial infarction; M47.816 Spondylosis without myelopathy or radiculopathy, lumbar region; Z98.84 Bariatric surgery status; Z90.710 Acquired absence of both cervix and uterus; Z98.890 Other specified postprocedural states; Z96.651 Presence of right artificial knee joint; Z79.899 Other long term (current) drug therapy; Z79.890 Hormone replacement therapy; Z90.49 Acquired absence of other specified parts of digestive tract; Z90.721 Acquired absence of ovaries, unilateral; E87.1 Hypo-osmolality and hyponatremia; D64.9 Anemia, unspecified
CPT/HCPCS: 36415; 36591; 71045; 80048; 80053; 83930; 84484; 85025; 93005; 99285

== ENCOUNTER 2023-07-04 09:35 | Day surgery (SDC) | payer MEDICARE, MEDICAID, SELFPAY ==
[2023-07-04 11:02] VITALS: BP 114/76; PULSE 67; RESP 16; TEMP 36.3; O2SAT 98
[2023-07-04] MEDS: 0.9 % SODIUM CHLORIDE 10 ML SYRINGE - SALINE FLUSH 2 ML INJ (11:24)
[2023-07-04] MEDS: METHYLPREDNISOLONE ACETATE 80 MG/ML VIAL INJ (11:24)
[2023-07-04] MEDS: LIDOCAINE HCL 2% PF 100 MG/5 ML VIAL INJ (11:24)
[2023-07-04] MEDS: BUPIVACAINE HCL 0.25% PF 25 MG/10 ML VIAL 2 ML INJ (11:24)
[2023-07-04 11:27] VITALS: BP 145/60; PULSE 88; RESP 18; O2SAT 97
[2023-07-04 11:29] VITALS: BP 128/74; PULSE 84; RESP 18; O2SAT 96
--- NOTE | 2023-07-04 11:52 | W.PM.PROCNOT ---
Date of procedure: 07/04/23 Pre-op diagnosis: Lumbar Radiculopathy Post-op diagnosis: same as pre-op Procedure: Caudal Epidural Steroid Injection With/without catheter advancement Pre-operative diagnosis includes Radiculopathy, Postoperative diagnosis same, Under fluoroscopic guidance Solution used for the injection is Marcaine 0.25% Depo-Medrol 80 mg total of 5ml Omnipaque 3cc,3ml total, 1ml was used for injection to confirm needle tip placement and catheter tip placement within the epidural space. catheter was removed with the tip intact. Anesthesia: local anesthesia using 2% lidocaine, total no more than 5 mL. Timeout process compliant After obtaining informed consent .the patient was brought to the procedure room .placed in the prone position . the area was prepped and draped in a sterile fashion utilizing betadine. 25 gauge needle was used to create a skin wheal over the sacral hiatus identified under fluoroscopy. 17 gauge touhy needle was inserted over the anesthetized area and directed to the [place] hiatus under fluoroscopic guidance . after piercing the sacrococcygeal ligament. Confirmation of needle tip placement within the epidural space was accomplished with injection of contrast solution. epidural catheter was advanced to the L5 level .catheter placement confirmed with injection of contrast solution . the steroid solution was then injected .needle and catheter was removed post procedurally. patient transferred to recovery area in stable condition. Discharged home after meeting criteria. Anesthesia: Local Surgeon: Terry David Condition: stable
== END 2023-07-04 11:40 | disposition home or self-care (01) ==
LOC: SURGOUT 09:36
PROVIDERS: PCP Family Medicine; Visit Provider Anesthesiology Pain Medicine
DX: M54.16 Radiculopathy, lumbar region (principal)
CPT/HCPCS: 62323; J0665; J1040

== ENCOUNTER 2023-07-13 13:27 | Outpatient (OUT) | payer MEDICARE, MEDICAID, SELFPAY ==
--- OUTSIDE RECORDS SUMMARY | 2023-07-13 13:36 | XMS_ITS | CCD ---
Author Name Unknown Address [address] [place] [address] Organization [facility] Care Team Providers Care Firer Kiln Name Role Phone NIRMAL LEWIS Admitting Unavailable [...] Referring Unavailable ANGLE SANTANA Primary Care Unavailable Tadjohnnie Raeann Unavailable Sue Leiva Unavailable MD Angle Santana Primary Care Provider WALLY Helm Emergency Provider ROBERT JOHNSTON Attending Unavailable ROBERT JOHNSTON Admitting Unavailable ESTHER ., DR BARBOUR Primary Care Unavailable DR BUNNY ZEPEDA Consulting Unavailable ROBERT JOHNSTON Consulting Unavailable MARIAHY ., DR BARBOUR Admitting Unavailable HOY ., DR ABRBOUR Primary Care Unavailable HOY ., DR BARBOUR Consulting Unavailable HOY ., DR BARBOUR Attending Unavailable HOY ., DR BARBOUR Admitting Unavailable HOY ., DR BARBOUR Primary Care Unavailable HOY ., DR BARBOUR Attending Unavailable HOY ., DR BARBOUR Consulting Unavailable HOY ., DR BARBOUR Admolena [...] Admitting Unavailable TERESSA GREGORY Attending Unavailable JC .CAR Consulting UnavailBUNNY Garnett Consulting Unavailable RAGINI HUDSON Consulting Unavailable HOY ., DR BARBOUR Consulting Unavailable HOY ., DR BARBOUR Primary Care Unavailable HOY ., DR BARBOUR Admitting Unavailable HOY ., DR BARBOUR Attending Unavailable ZIEBER, DR BUNNY Trujillo Consulting Unavailable EDGARDO AMEZCUA Consulting Unavailable VITALENUNO RASCON Consulting Unavailable HOY ., DR BARBOUR Admitting [...] Unavailable DIAB ., NIKKIE Admitting Unavailable TANK .LANA Consulting Unavailable HOY ., DR BARBOUR Primary Care Unavailable MIGEL APARICIO Consulting Unavailable JODY BUITRAGO Consulting Unavailable ALEJODANICA DOBBS Consulting Unavailable CARLOS THOMPSON Consulting Unavailable DIAB ., NIKKIE Consulting Unavailable [...] Unavailable PAY ., DR HUNTER Consulting Unavailable JUDAH CHARLES Consulting Unavailable Barnes, David Consulting Unavailable HOY [...] AZIZ Attending Unavailable BAKHOUS, AZIZ Admitting Unavailable BAKHOUS, AZIZ Consulting Unavailable HOY ., DR BARBOUR Primary [...] Unavailable HOY ., DR BARBOUR Attending Unavailable LISA, ZANDRA Attending Unavailable ZANDRA GONZALEZ Admitting Unavailable HOY ., DR BARBOUR Primary Care Unavailable ZANDRA GONZALEZ Consulting Unavailable HOY ., DR BARBOUR Consulting Unavailable HOY ., DR BARBOUR Primary Care Unavailable HOY ., DR BARBOUR Admitting Unavailable HOY ., DR BARBOUR Attending Unavailable ZIEBER, DR BUNNY Trujillo Consulting Unavailable HOY ., DR BARBOUR Primary Care Unavailable HARP ., DR ANIKA Sanchez Attending Unavailable HARP ., DR ANIKA Sanchez Admitting Unavailable DEJESUS ., NNAMDI Consulting Unavailable LAKSHMIPATHY ., NARENDRANATH Consulting Yumiko vailable LAKSHMIPATHY ., NARENDRANATH Attending Yumiko vailable LAKSHMIPATHY ., NARENDRANATH Admitting Yumiko vailable HOY ., DR BARBOUR Primary Care Unavailable HOY ., DR BARBOUR Primary Care Unavailable HARP ., DR ANIKA Sanchez Admitting Unavailable HARP ., DR ANIKA Sanchez Consulting Unavailable HARP ., DR ANIKA Sanchez Attending Unavailable DEJESUS ., NNAMDI Consulting Unavailable HOY ., DR BARBOUR Primary Care Unavailable HARP ., DR ANIKA Sanchez Admitting Unavailable HARP ., DR ANIKA Sanchez Consulting Unavailable HARP ., DR ANIKA Sanchez Attending Unavailable AGUBOSIBRIAN [place] Consulting Unavailable HOY ., DR BARBOUR Primary Care Unavailable HARP ., DR ANIKA Sanchez Attending Unavailable HARP ., DR ANIKA Sanchez Admitting Unavailable HARP ., DR ANIKA Sanchez Consulting Unavailable LAKSHMIPATHY ., NARENDRANATH Attending Yumiko vailable LAKSHMIPATHY ., NARENDRANATH Admitting Yumiko vailable HALKER ., SANTOS Consulting Unavailable HOY ., DR BARBOUR Primary Care Unavailable LAKSHMIPATHY ., NARENDRANATH Attending Yumiko vailable LAKSHMIPATHY ., NARENDRANATH Admitting Yumiko vailable LAKSHMIPATHY ., SADIE Consulting Yumiko vailable HOY ., DR BARBOUR Primary Care Unavailable HOY ., DR BARBOUR Primary Care Unavailable HARP ., DR ANIKA Sanchez Attending Unavailable HARP ., DR ANIKA Sanchez Admitting Unavailable HARP ., DR ANIKA Sanchez Consulting Unavailable LAKSHMIPATHY ., NARENDRANATH Attending Yumiko vailable LAKSHMIPATHY ., NARENDRANATH Admitting Yumiko vailable LAKSHMIPATHY ., NARENDRELL Consulting Yumiko vailable HOY ., DR BARBOUR Primary Care Unavailable DEJESUS ., NNAMDI Consulting Unavailable HOY ., DR BARBOUR Primary Care Unavailable HARP ., DR ANIKA Sanchez Admitting Unavailable HARP ., DR ANIKA Sanchez Attending Unavailable HOY ., DR BARBOUR Admitting Unavailable HOY ., DR BARBOUR Primary Care Unavailable HOY ., DR BARBOUR Consulting Unavailable HOY ., DR BARBOUR Attending Unavailable TAMLYN ., FELECIA Attending Unavailable TAMMONICAN ., FELECIA [...] Unavailable HOY ., DR BARBOUR Consulting Unavailable VITALE, APRIL Consulting Unavailable HOY ., DR BARBOUR [...] DR MIGUEL Calderon Consulting Unavailabl e JC ., CAR BECK Consulting Unavailkalpana e SHAIKH Deepak LAIRD Consulting Unavailable HOY ., DR BARBOUR Primary Care Unavailable HARP ., DR ANIKA Sanchez Admitting Unavailable HARP ., DR ANIKA Sanchez Consulting Unavailable HARP ., DR ANIKA Sanchez Attending Unavailable SHAMA ALEXANDRA Consulting Unavailable BUNNY MCMILLAN Consulting Unavailable HOY ., DR BARBOUR Admolena Unavailable HOY ., DR BARBOUR Primary Care Unavailable HOY ., DR BARBOUR Consulting Unavailable HOY ., DR BARBOUR Attending Unavailable SHERLY ROSADO Referring Unavailable DUNCAN DENNIS Attending Unavailable SHERLY ROSADO Referring Unavailable BENJIE HIDALGO Attending Unavailable RHIANNON BERNARD Attending Unavailable BENJIE HIDALGO Admitting Unavailable BENJIE HIDALGO Attending Unavailable ZANDRA GONZALEZ Attending Unavailable RHIANNON BERNARD Attending Unavailable BENJIE HIDALGO Attending Unavailable SHERLY ROSADO Attending Unavailable MD Angle Santana Primary Care Provider MD Beatriz Oh Admit Provider DO Jim Randhawa Attending Provider MD [place] Other Provider Favian Helm Admitting Unavailable Favian Helm Attending Unavailable Angle Santana Primary Care Unavailable Jim Randhawa Attending Unavailable Beatriz Oh Admitting Unavailable [place] Consulting Unavailable Angle Santana Primary Care Unavailable Allergies Allergy Classification Reported Allergen(s) Allergy Type Date of Onset Reaction(s) Facility (10 sources) Amoxicillin Drug Allergy 10-29-19 23 Unknown, [facility] (4 sources) Amoxicillin / Clavulanate Drug Allergy Unknown [facility] Other (11 sources) Povidone-Iodine; Translations: [POVIDONE-IODINE] Drug Allergy 10-11-19 23 Unknown, [facility] (8 sources) Sulfamethoxazole / Trimethoprim Drug Allergy Unknown [facility] [facility] Other (1 source) sulfaSALAzine Drug Allergy Unknown [facility] [facility] Other (7 sources) Amoxicillin / Clavulanate Drug Allergy 11-26-19 13 Unknown [facility] (1 source) Bumetanide Drug Allergy 03-22-20 16 [facility] (1 source) Cephalexin Drug Allergy 01-15-20 14 [facility] (2 sources) gabapentin; Translations: [GABAPENTIN] Drug Allergy 08-19-19 22 [facility] (3 sources) Povidone-Iodine Drug Allergy 11-26-19 13 [facility] (1 source) pregabalin; Translations: [LYRICA] Drug Allergy 08-19-19 22 [facility] (6 sources) Sulfonamides (Antibiotic); Translations: [SULFA (SULFONAMIDE ANTIBIOTICS)] Drug allergy (disorder) 11-26-19 13 Rash [facility] (1 source) Sulfonamide Drug allergy Unknown [facility] Other (6 sources) Substance with sulfonamide structure and antibacterial mechanism of action (substance) Drug allergy Unknown [facility] [facility] Other (3 sources) Clavulanate; Translations: [clavulanic acid] Drug Allergy 10-29-19 Diarrhea [facility] (1 source) Ciprofloxacin Drug Allergy 05-26-20 [facility] (1 source) Cephalexin; Translations: [CEPHALEXIN] Drug Allergy 06-13-20 14 [facility] (1 source) Ciprofloxacin; Translations: [CIPROFLOXACIN] Drug Allergy 10-11-19 23 [facility] (1 source) Iodine; Translations: [IODINE] Drug Allergy 11-28-19 [facility] (1 source) pregabalin; Translations: [PREGABALIN] Drug Allergy 10-11-19 [facility] (1 source) Sulfamethoxazole / Trimethoprim; Translations: [SULFAMETHOXAZOLE-T RIMETHOPRIM] Drug Allergy 11-28-19 [facility] (1 source) AMOXICILLIN-POT CLAVULANATE; Translations: [AMOXICILLIN-POT CLAVULANATE] Propensity to adverse reactions to drug (disorder) 06-13-20 14 [facility] (1 source) Amoxicillin Drug Allergy 10-29-19 [facility] (1 source) Povidone-Iodine Drug Allergy 10-29-19 [facility] (1 source) Sulfonamides (Antibiotic) Drug allergy (disorder) 10-29-19 [facility] Repository Medications Current Medications Medication Drug Class(es) Dates Sig (Normalized) Sig (Original) ALPRAZolam 0.25 mg oral tablet (10 sources) Benzodiazepine Start: 08-31-2018 take 2 tablets by mouth twice daily Alprazolam (Xanax) 0.25 mg Tablet Active 0.5 MG PO Twice daily August 31, 2018 12:00am take 1 tablet by joseph th twice [...] Active amitriptyline hydrochloride 150 mg oral tablet (12 sources) Tricyclic Antidepressant Start: 10-28-2022 take 300 mg by mouth at bedtime Amitriptyline Active 300 MG PO Bedtime October 27, 2022 11:00pm Start: 10-28-2022 take 150 mg by mouth once daily Amitriptyline Active 150 MG PO Daily October 28, 2022 12:00am Start: 08-31-2018 End: 09-04-2018 take 200 mg by mouth once daily Amitriptyline Discontinued 200 MG PO Daily August 31, 2018 12:00am September 04, 2018 6:59am ARIPiprazole 2 mg oral tablet (10 sources) Atypical Antipsychotic Start: 10-28-2022 take 2 mg by mouth once daily Aripiprazole Active 2 MG PO Daily October 27, 2022 11:00pm B Complex (Folic Acid) - (8 sources) B Complex (Folic Acid) - as directed Orally ONCE A DAY Active bumetanide 1 mg oral tablet (14 sources) Loop Diuretic Start: 07-03-2023 take 2 mg by mouth twice daily Bumetanide Active 2 MG PO Twice daily 60 July 03, 2023 1:00pm Take twice daily Start: 07-03-2023 End: 07-03-2023 take 6 mg by mouth once daily as needed Bumetanide Discontinued 2 MG PO Twice daily 60 July 03, 2023 1:00pm July 03, 2023 12:50pm MAY TAKE UP TO 6 MG DAILY PRN Start: 10-28-2022 End: 07-03-2023 take 6 mg by mouth once daily as needed Bumetanide Discontinued 2 MG PO Daily October 27, 2022 11:00pm July 03, 2023 12:49pm MAY TAKE UP TO 6 MG DAILY PRN Start: 10-28-2022 take 1 mg by mouth t hree times daily Bumetanide Active 1 MG PO Three times daily October 28, 2022 12:00am Start: 08-31-2018 End: 10-28-2022 take 2 mg by mouth once daily Bumetanide Discontinued 2 MG PO Daily August 31, 2018 12:00am October 28, 2022 6:46pm take 1 tablet by joseph th every twenty-four hours Bumetanide 1 MG 1 tablet Orally Once a day Active butorphanol tartrate 1 mg/actuat metered dose nasal spray (3 sources) Opioid Agonist/Antagonist Start: 10-28-2022 End: 06-30-2023 Butorphanol Active 1 SPRAY INTRANASAL Daily June 30, 2023 12:00am calcium acetate 667 mg oral capsule (5 sources) Start: 10-28-2022 take 667 mg by mouth twice daily at mealtime Calcium Acetate(Phosphat Bind) Active 667 MG PO Twice daily October 27, 2022 11:00pm WITH MEALS take 2 tablets by mouth every ei [...] a day Active 24 hr desvenlafaxine succinate 100 mg extended release oral tablet (3 sources) Serotonin and Norepinephrine Reuptake Inhibitor Start: 06-30-2023 take 100 mg by mouth once daily Desvenlafaxine Succinate Active 100 MG PO Daily June 30, 2023 12:00am Start: 10-28-2022 End: 06-30-2023 take 50 mg by mouth once daily Desvenlafaxine Succinate Discontinued 50 MG PO Daily October 27, 2022 11:00pm June 30, 2023 12:30am docusate sodium 250 mg oral capsule (1 source) take 1 capsule by mouth once daily as needed Docusate Sodium 250 MG 1 capsule as needed Orally Once a day NEEDED Active DULoxetine 60 mg delayed release oral capsule (10 sources) Serotonin and Norepinephrine Reuptake Inhibitor Start: take 120 mg by mouth once daily Duloxetine Active 120 MG PO Daily October 27, 2022 11:00pm take 1 capsule by mo uth every twelve hours DULoxetine HCl 60 MG 1 capsule Orally Tw ice a day Active 72 hr fentaNYL 0.1 mg/hr transdermal system (13 sources) Opioid Agonist Start: 10-28-2022 Fentanyl Activ e 1 PATCH TRANSDERML Q72H October 27, 2022 11:00pm Start: 08-31-2018 End: 10-28-2022 Fentanyl Discontinued 1 PATC H TRANSDERML Q72H August 31, 2018 12:00am October 28, 2022 6:54pm fentaNYL 100 MCG /HR 1 patch to skin Transdermal EVERY 72 HOURS Active fentaNYL 50 MCG/ HR 1 patch to skin Transdermal CHANGE EVERY 72 HOURS Active ferrous sulfate 324 mg delayed release oral tablet (3 sources) Start: 07-03-2023 take 324 mg by mouth once daily Ferrous Sulfate Active 324 MG PO Daily July 03, 2023 12:00am Start: 08-31-2018 End: 06-30-2023 take 325 mg by mouth once daily Ferrous Sulfate Discontinued 325 MG PO Daily August 31, 2018 12:00am June 30, 2023 12:30am fludrocortisone acetate 0.1 mg oral tablet (6 sources) take 2 tablets by mouth in the morning, then take 1 tablet by mouth twice daily in the evening Fludrocortisone Acetate 0.1 MG 2 tablets in am, 1 tablet in pm Orally twice a day Active gabapentin 100 mg oral capsule (1 source) Anti-epileptic Agent Start: 024 take 100 mg by mouth three times daily Gabapentin Active 100 MG PO Three times daily June 29, 2023 12:00am hydroCHLOROthiazide 50 mg / triamterene 75 mg oral tablet (6 sources) Potassium-spari ng Diuretic, Thiazide Diuretic take 1 tablet by [...] Active levothyroxine sodium 0.1 mg oral tablet (12 sources) l-Thyroxine Start: 023 take 100 ug by mouth once daily Levothyroxine Active 100 MCG PO Daily October 27, 2022 11:00pm Start: 08-31-2018 End: 10-28-2022 take 1 tablet by mouth once daily Levothyroxine (Synthroid) 88 mcg Tablet Discontinued 88 MCG PO Daily August 31, 2018 12:00am October 28, 2022 8:37pm take 1 tablet by joseph once daily in the morning Levothyroxine Sodium 100 MCG 1 tablet in the morning on an empty stomach Orally Once a day Active linaclotide 0.29 mg oral capsule (10 sources) Guanylate Cyclase-C Agonist Start: 10-28-2022 Linaclotide (Linzess ) 290 mcg capsule Active 290 MCG PO Every 48 hours October 27, 2022 11:00pm Start: 10-28-2022 take [address] [facility] once daily Linaclotide (Linzess) 290 mcg capsule Active 290 MCG PO Daily October 28, 2022 12:00am Linzess 290 290m cg 1 PO every other day Active Linzess 290 290m cg 1 PO Every AM Active liothyronine sodium 0.025 mg oral tablet (12 sources) l-Triiodothyronine Start: 10-28-2022 End: 06-30-2023 take 1 tablet by mouth once daily Liothyronine (Cytomel) 25 mcg Tablet Active 25 MCG PO DAILY@0630 30 30 July 03, 2023 12:00am [facility] Liothyronine Sodium 25 MCG 1 tablet on a n empty stomach Orally Once a day Active loratadine 10 mg oral tablet (3 sources) Start: 06-29-2023 take 1 tablet by mouth once daily Loratadine (Claritin) 10 mg Tablet Active 10 MG PO Daily June 29, 2023 12:00am [facility] Claritin 10 MG 1 tablet Orally Once a day Active metoprolol tartrate 25 mg oral tablet (10 sources) beta-Adrenergic Catrachita Start: 08-31-2018 take 25 mg by mouth twice daily Metoprolol Tartrate Active 25 MG PO Twice daily August 31, 2018 12:00am Start: 08-31-2018 take 50 mg by mouth twice montrell y Metoprolol Tartrate Active 50 MG PO Twice daily August 31, 2018 1:00am take 1 tablet by joseph every twelve hours Metoprolol Tartrate 50 MG 1 tablet with food Orally Twice a day Not-Taking Multi For Her - (8 sources) Multi For Her - as directed Orally Active ondansetron 4 mg oral tablet (10 sources) Serotonin-3 Receptor Antagonist Start: 08-31-2018 Ondansetron Hcl (Zofran) 4 mg Tablet Active 4 MG PO every 6 to 8 hours August 31, 2018 12:00am take 1 tablet by joseph th once daily as needed Ondansetron 4 MG 1 tablet on the tongue and allow to dissolve Orally Once a day PRN Active pantoprazole 40 mg delayed release oral tablet (11 sources) Proton Pump Inhibitor Start: 06-30-2023 take 1 tablet by mouth twice daily Pantoprazole (Protonix) 40 mg Tablet,Delayed Release (Dr/Ec) Active 40 MG PO Twice daily June 30, 2023 12:00am Start: 08-31-2018 End: 06-30-2023 take 2 tablets by mouth twice daily Pantoprazole (Protonix) 20 mg Tablet,Delayed Release (Dr/Ec) Discontinued 40 MG PO Twice daily August 31, 2018 12:00am June 30, 2023 10:41am Start: 08-31-2018 take 1 tablet by joseph once daily Pantoprazole (Protonix) 20 mg Tablet,Delayed Release (Dr/Ec) Active 20 MG PO Daily August 31, 2018 1:00am take 1 tablet by joseph every twelve hours Pantoprazole Sodium 40 MG 1 tablet Orally TWICE A DAY Active pramipexole dihydrochloride 1 mg oral tablet (1 source) Nonergot Dopamine Agonist Start: 06-30-2023 take 1 tablet by mouth once daily Pramipexole (Mirapex) 1 mg Tablet Active 1 MG PO Daily June 30, 2023 12:00am primidone 50 mg oral tablet (11 sources) Anti-epileptic Agent Start: 06-29-2023 take 100 mg by mouth at bedtime Primidone Active 100 MG PO Bedtime June 29, 2023 12:00am Start: 08-31-2018 End: 09-04-2018 take 100 mg by mouth twice daily Primidone Discontinued 100 MG PO Twice daily August 31, 2018 12:00am September 04, 2018 6:59am take [address] [facility] every twenty-four hours Primidone 50 MG 2 tablet Orally Once a day Active Probiotic (Lactobacillus) - (1 [...] 3 DOSES PER 24 HRS. Active sacubitril 97 mg / valsartan 103 mg oral tablet (15 sources) Angiotensin 2 Receptor Catrachita Start: take 1 tablet by mouth twice daily Sacubitril-Valsartan (Entresto) 97-103 mg tablet Active 1 TAB PO Twice daily June 29, 2023 12:00am Start: 10-28-2022 End: 06-29-2023 take 1 tablet by mouth twice daily Sacubitril-Valsartan (Entresto) 49-51 mg tablet Discontinued 1 TAB PO Twice daily October 27, 2022 11:00pm June 29, 2023 11:34pm take 1 tablet by joseph every twelve hours Entresto 97-103 MG 1 tablet Orally Twice a day Active take 3 tablets by mo ut twice daily Sacubitril-Valsartan 97-103 MG 3 tablet Orally Twice a day Active take 3 tablets by mo uth twice daily Sacubitril-Valsartan 24-26 MG 3 tablet Orally Twice a day Active sevelamer carbonate 800 mg oral tablet (5 sources) Phosphate Binder Start: 06-29-2023 take 1 tablet by mouth three times daily at mealtime Sevelamer Carbonate (Renvela) 800 mg Tablet Active 800 MG PO Three times daily June 29, 2023 12:00am must administer with a meal/food take 1 tablet by mouth every eig ht hours Renvela 800 MG 1 tablet with meals Orally Three times a day for 90 days Not-Taking tiZANidine 4 mg oral capsule (10 sources) Central alpha-2 Adrenergic Agonist Start: 08-31-2018 take 4 mg by mouth three times daily Tizanidine Active 4 MG PO Three times daily August 31, 2018 12:00am Start: 08-31-2018 Tizanidine Act ankur 4 MG PO every 6 to 8 hours August 31, 2018 1:00am take 1 tablet by joseph every six hours tiZANidine HCl 4 MG 1 tablet as needed Orally four times a day Active Completed/Discontinued Medications Medication Drug Class(es) Dates Sig (Normalized) Sig (Original) acetaminophen 325 mg / butalbital 50 mg / caffeine 40 mg oral capsule (2 sources) Barbiturate, Central Nervous System Stimulant, Methylxanthine Start: 10-28-2022 End: 06-30-2023 Butalbital-Acetam inophen-Caff Discontinued 1 CAP PO As Directed October 27, 2022 11:00pm June 30, 2023 12:27am acetaminophen 325 mg / oxyCODONE hydrochloride 5 mg oral tablet (11 sources) Opioid Agonist Start: 06-29-2023 End: 06-30-2023 take 1 tablet by mouth twice daily Oxycodone-Acetami nophen (Percocet) 5-325 mg tablet Discontinued 1 TAB PO 2 times daily June 29, 2023 12:00am June 30, 2023 10:41am Start: 08-31-2018 take 1 tablet by joseph every six hours Oxycodone-Acetaminophen (Percocet) 5-325 mg Tablet Active 1 - 2 TAB PO Q6H August 31, 2018 12:00am Start: 08-31-2018 take [address] [facility] every four to six hours Oxycodone-Acetaminophen (Percocet) 5-325 mg Tablet Active 2 TAB PO EVERY 4-6 HOURS August 31, 2018 1:00am take [address] [facility] every four hours as needed oxyCODONE-Acetaminophen 5-325 MG 2 table t as needed Orally every 4 hrs PRN Active [id number] 200 actuat albuterol 0.09 mg/actuat metered dose inhaler (2 sources) beta2-Adrenergic Agonist Start: 10-28-2022 End: 06-30-2023 take 1 puff(s) by inhalation every six hours Albuterol Sulfate Discontinued 1 PUFF INHALATION Q6H October 27, 2022 11:00pm June 30, 2023 12:25am albuterol 0.833 mg/ml / ipratropium bromide 0.167 mg/ml inhalation solution (2 sources) Anticholinergic, beta2-Adrenergic Agonist Start: 10-28-2022 End: 06-30-2023 take 1 mL by inhalation every six hours Ipratropium-Albu terol Discontinued 3 ML INHALATION Q6H October 27, 2022 11:00pm June 30, 2023 12:26am 24 hr buPROPion hydrochloride 300 mg extended release oral tablet (2 sources) Aminoketone Start: 08-31-2018 End: 06-30-2023 take 1 tablet by mouth once daily in the morning Bupropion Hcl (Wellbutrin Xl) 300 mg Tablet Extended Release 24 Hr Discontinued 300 MG PO Every morning August 31, 2018 12:00am June 30, 2023 12:27am dicyclomine hydrochloride 20 mg oral tablet (3 sources) Anticholinergic Start: 10-28-2022 End: 06-30-2023 Dicyclomine Discontinued 20 MG PO As Directed October 27, 2022 11:00pm June 30, 2023 12:30am take 1 tablet by joseph th four times daily as needed Dicyclomine HCl 20 MG 1 tablet Orally Fo ur times a day NEEDED Active escitalopram 20 mg oral tablet (2 sources) Serotonin Reuptake Inhibitor Start: 10-28-2022 End: 06-30-2023 take 20 mg by mouth once daily Escitalopram Oxalate Discontinued 20 MG PO Daily October 27, 2022 11:00pm June 30, 2023 12:27am fluconazole 100 mg oral tablet (2 sources) Azole Antifungal Start: 08-31-2018 End: 09-04-2018 take 100 mg by mouth once daily Fluconazole Discontinued 100 MG PO Daily August 31, 2018 12:00am September 04, 2018 6:59am Fluticasone Furoate-Vilanterol (3 sources) Corticosteroid, beta2-Adrenergic Agonist Start: 08-31-2018 End: 06-30-2023 Fluticasone Furoate-Vilanterol (Breo Ellipta) 100-25 mcg/dose Blister With Device Discontinued 1 INH INHALATION Daily August 31, 2018 12:00am June 30, 2023 12:25am Start: 08-31-2018 Fluticasone Fu roate-Vilanterol (Breo Ellipta) 100-25 mcg/dose Blister With Device Active 1 INH INHALATION Daily August 31, 2018 1:00am take 1 puff(s) by in halation once daily BREO ELLIPTA 100 mcg/25 mcg 1 puff Inhalation daily Active hydrALAZINE hydrochloride 50 mg oral tablet (13 sources) Arteriolar Vasodilator Start: 10-28-2022 End: 06-30-2023 take 50 mg by mouth three times daily Hydralazine Discontinued 50 MG PO Three times daily October 27, 2022 11:00pm June 30, 2023 12:22am levoFLOXacin 750 mg oral tablet (2 sources) Quinolone Antimicrobial Start: 08-31-2018 End: 09-04-2018 take 750 mg by mouth once daily Levofloxacin Discontinued 750 MG PO Daily August 31, 2018 12:00am September 04, 2018 6:59am metoclopramide 5 mg oral tablet (9 sources) Dopamine-2 Receptor Antagonist Start: 08-31-2018 End: 06-30-2023 take 1 tablet by mouth once daily Metoclopramide Hcl (Reglan) 5 mg Tablet Discontinued 5 MG PO Daily August 31, 2018 12:00am June 30, 2023 12:26am take 1 tablet by mouth every six hours Metoclopramide HCl 10 MG 1 tablet before meals Orally Four times a day Active Fr-Ojrhvpi-Vtc-Iron Fm-Fa-Vitk (Multi For Her) 18 mg iron-600 mcg-80 mcg Tablet (2 sources) Start: 08-31-2018 End: 06-30-2023 take 1 tablet by mouth once daily Ua-Nadnkir-Zif-Iron Fm-Fa-Vitk (Multi For Her) 18 mg iron-600 mcg-80 mcg Tablet Discontinued 1 TAB PO Daily August 31, 2018 12:00am June 30, 2023 12:26am Start: 08-31-2018 take 1 tablet by joseph th once daily Os-Hkvdnkb-Edf-Iron Fm-Fa-Vitk (Multi For Her) 18 mg iron-600 mcg-80 mcg Tablet Active 1 TAB PO Daily August 31, 2018 1:00am potassium chloride 10 meq extended release oral capsule (6 sources) Start: 08-31-2018 End: 06-30-2023 take 10 mEq by mouth once daily Potassium Chloride Discontinued 10 MEQ PO Daily August 31, 2018 12:00am June 30, 2023 12:30am take 1 tablet by joseph th every twenty-four hours Klor-Con 10 10 MEQ 1 tablet with food Orally daily Active take 1 tablet by mouth every twe lve hours Potassium Chloride ER 10 MEQ 1 tablet with food Orally Twice a day Active sodium chloride 1000 mg oral tablet (2 sources) Start: 08-31-2018 End: 09-04-2018 Sodium Chloride Discontinued 1000 MG PO 1 to 4 times daily August 31, 2018 12:00am September 04, 2018 7:01am spironolactone 50 mg oral tablet (2 sources) Aldosterone Antagonist Start: 08-31-2018 End: 06-30-2023 take 100 mg by mouth once daily Spironolactone Discontinued 100 MG PO Daily August 31, 2018 12:00am June 30, 2023 12:31am Urea (Ure-Na) 15 gram Powder In Packet (2 sources) Start: 09-04-2018 End: 06-30-2023 Urea (Ure-Na) 15 gram Powder In Packet Discontinued 30 GM PO Daily September 03, 2018 11:00pm June 30, 2023 12:30am Start: 09-04-2018 Urea (Ure-Na) 15 gram Powder In Packet Active 30 GM PO Daily September 04, 2018 12:00am Problems Active Problems Problem Classification Problem Date Documented Date Episodic/Chronic Acute and unspecified renal failure (4 sources) Acute kidney failure, unspecified; Translations: [Acute renal failure syndrome] Onset: 3 06-30-2023 Episodic Acute posthemorrhagic anemia (1 source) Acute posthemorrhagic [...] Onset: 3 Episodic Congestive heart failure; nonhypertensive (20 sources) Congestive heart failure; Translations: [Heart failure, unspecified] Onset: 1 Resolved: 1 Chronic Coronary atherosclerosis and other heart disease (3 sources) 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; Translations: [ASHD CAHUILLA CA W/O ANGINA PECTORIS] Onset: 3 Chronic [...] Onset: 3 Chronic Deficiency and other anemia (2 sources) Anemia; Translations: [Anemia, unspecified] 10-28-2022 Episodic Deficiency and other anemia (3 sources) Anemia, unspecified; Translations: [Anemia, unspecified] Onset: 3 07-03-2023 Episodic Deficiency and other anemia (1 source) Iron deficiency anemia, unspecified; Translations: [IRON DEFICIENCY ANEMIA UNSPECIFIED] Onset: 3 Episodic E Codes: Adverse effects of medical drugs (1 source) Adverse effect of arqjmcuvpvf-mnmyfeogft-g nzyme inhibitors, initial encounter; Translations: [ADVERSE EFFECT ACEI INITIAL ENCNTR] Onset: 3 Episodic Epilepsy; convulsions (1 source) Epilepsy, unspecified, not intractable, without status epilepticus; Translations: [EPILEPSY UNS NOT INTRACT W/O SE] Onset: 3 Chronic Esophageal disorders (1 source) Gastro-esophageal reflux disease without esophagitis; Translations: [GERD WITHOUT ESOPHAGITIS] Onset: 3 Chronic Essential hypertension (11 sources) Hypertensive disorder; Translations: [Essential (primary) hypertension] [...] kidney disease] Onset: 1 Resolved: 1 Chronic Malaise and fatigue (9 sources) Asthenia; Translations: [Weakness] Onset: 2 09-04-2018 Episodic Menopausal disorders (4 sources) Postmenopausal bleeding; Translations: [...] PATH FX] Onset: 3 Chronic Other aftercare (2 sources) Polypharmacy ; Translations: [Other group home (current) drug therapy] 09-04-2018 Episodic Other aftercare (1 source) Other group home (current) drug therapy; Translations: [[facility] 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 THERAPY] Onset: 3 Episodic Other [...] Classification Problem Date Documented Da te Episodic/Chronic Chronic kidney disease (6 sources) Chronic kidney [...] RT WR INT ASHWIN] Onset: 08-16-2022 Episodic Menopausal disorders (1 source) Hormone replacement [...] HEAD INITIAL ENC] Onset: 08-17-2022 Episodic Other lower respiratory disease (1 source) Shortness of breath; Translations: [Shortness of breath] Onset: 10-28-2022 Episodic Other non-traumatic joint disorders (1 source) [...] Test Name Value Interpretation Reference Range Facility Absolute reticulocyte countO rdered By: Los Grissom on 07-03-2023 Reticulocytes (Bld) [#/Vol] 0.039 10*6/uL 0.024-0.08 4 [facility] Basic Metabolic Panelon Creatinine Clr Calc Pharmacy 25.88 [facility] Comment on above: Performed By: #### M G, [id number], RETIC, FE and TIBC, JOSE, BMP #### [facility] [address] GFR/1.73 sq M.predicted MDRD (S/P/Bld) [Vol rate/Area] 23.348 mL/min/{1.73_m2} [facility] Comment on above: Performed By: #### M G, [id number], RETIC, FE and TIBC, JOSE, BMP #### [facility] [address] Calcium [Mass/volume] in Ser um or PlasmaOrdered By: Jim Randhawa on 07-03-2023 Calcium [Mass/Vol] 8.3 mg/dL Low 8.6-10.3 [facility] Comment on above: Performed By: #### Nadya G, [id number], RETIC, FE and TIBC, JOSE, BMP #### [facility] [address] Carbon dioxide, total [Moles /volume] in Serum or PlasmaOrdered By: Jim Randhawa on 07-03-2023 CO2 [Moles/Vol] 20.4 mmol/L Low 21.0-31.0 [facility] Comment on above: Performed By: #### Nadya G, [id number], RETIC, FE and TIBC, JOSE, BMP #### [address] Chloride [Moles/volume] in S andrea or PlasmaOrdered By: Jim Randhawa on 07-03-2023 Chloride [Moles/Vol] 106 mmol/L Normal 98-107 [facility] Comment on above: Performed By: #### Nadya G, [id number], RETIC, FE and TIBC, JOSE, BMP #### [facility] [address] [place] [address] Creatinine [Mass/volume] in Serum or PlasmaOrdered By: Jim Randhawa on 07-03-2023 Creatinine [Mass/Vol] 2.32 mg/dL High 0.60-1.20 [facility] Comment on above: Performed By: #### Nadya G, [id number], RETIC, FE and TIBC, JOSE, BMP #### [address] ECH echo transthoracicon ECH echo transthoracic [facility] [place] [address] [place] [address] Echocardiogram Signed Patient: Mabel Moser MR#: [id number] : 1960 Acct:[id number] Age/Sex: 63 / F ADM Date: 06/29/23 Loc: Room: [address] [place] [address] Type: DIS IN Attending Dr: Jim Randhawa DO Ordering Provider: Jim Randhawa DO Date of Service: 07/02/2301/16/859 ECH/ECH echo transthoracic: swelling Copies to: MD Jim Meyer DO Weight: 189 lb Performed By: Judah Pinto GARRY BSA: 1.9 m2 BP: 112/75 mmHg HR: 70 Reason For Study: swelling History: CAD, IVC Filter, Hypertension, Gastric Bypass, CKD, CHF Interpretation Summary The left ventricular size, thickness and function are normal Ejection Fraction = 60-65%. The left ventricular wall motion is normal. The left atrium appears mildly dilated. There is mild tricuspid regurgitation. There is trace mitral regurgitation. There is no comparison study available. Procedure/Quality: A two-dimensional transthoracic echocardiogram with color flow and Doppler was performed. Left Ventricle: The left ventricular size, thickness and function are normal. Ejection Fraction = 60-65%. A variety of Doppler measurements indicate normal left ventricular diastolic function. The left ventricular wall motion is normal. Left Atrium: The left atrium appears mildly dilated. Right Atrium: The right atrium appears normal in size. Right Ventricle: The right ventricular size, thickness and function are normal. Aortic Valve: The aortic valve is normal in structure and function. The aortic valve is trileaflet. No aortic regurgitation is present. Mitral Valve: The mitral valve is normal in structure and function. There is no mitral valve stenosis. There is trace mitral regurgitation. Tricuspid Valve: The tricuspid valve is normal in structure and function. There is mild tricuspid regurgitation. Pulmonic Valve: The pulmonic valve is not well visualized. Arteries: The aortic root is normal size. Pericardium/Pleura: No pericardial effusion seen. There is no pleural effusion. IVC/Hepatic Viens: The IVC is normal in size with an inspiratory collapse of greater then 50%, suggesting normal right atrial pressure. Measurements with Normals IVSd: 1.0 cm (0.7-1.1 cm)LVIDd: 4.8 cm (3.7-5.4 cm) LVPWd: 0.82 cm (0.7-1.1 cm)LVIDs: 2.8 cm (2.3-3.6 cm) LA dimension: 4.1 cm (2.3-4.0 cm)Ao root diam: 3.2 cm(2.0-3.6 cm) asc Aorta Diam: 3.1 cm(2.1-3.4cm) Doppler with Normals RVSP(TR): 31.6 mmHg (18-35mmHg) LV V1 max: 133.0 cm/sec (0.7-1.7m/s)MV E max kerry: 98.0 cm/sec(0.8-1.3m/s) MV A max kerry: 77.6 cm/sec(0.0-0.0m/s) MV E/A: 1.3 (<1.5) MMode/2D Measurements Calculations RVDd: 2.9 cm FS: 40.8 % Ao root area: 7.8 [id number] ap4: 8.4 cm TAPSE: 2.6 cm EDV(Teich): EDV(MOD-sp4): 106.3 ml 140.0 ml ESV(Teich): LVLs ap4: 6.8 cm 30.2 ml ESV(MOD-sp4): EF(Teich): 71.5 % 48.9 ml EF(MOD-sp4): 65.1 % __ SV(MOD-sp4): LAV(MOD-sp4): LA A2 area: 23.4 cm2 91.1 ml 68.0 ml LAV(MOD-sp2): LA A4 area: 23.9 cm2 73.7 ml LA length (vol): 6.6 cm LA vol: 71.7 ml LA vol index: 38.4 ml/m2 Doppler Measurements Calculations MV dec time: E/E' lat: 7.4 Ao V2 max: LV V1 max P.20 sec E/E' med: 10.4 174.0 cm/sec 7.1 mmHg Ao max P.1 mmHg LV V1 mean PG: Ao mean P.0 mmHg 3.0 mmHg Ao V2 mean: LV V1 mean: 115.0 cm/sec 83.9 cm/sec Ao V2 VTI: 35.7 cm LV V1 VTI: 27.4 cm __ TV max PG: TR max kerry: 29.0 mmHg 267.4 cm/sec TR max P.6 mmHg RAP systole: 3.0 mmHg Transcribed By: BUBBA Performed At: 07/03/23 1155 Signed By: Benjie Leach MD 07/03/23 1445 [facility] Ferritin [Mass/volume] in Se rum or PlasmaOrdered By: Los Grissom on 07-03-2023 Ferritin [Mass/Vol] 71.9 ng/mL Normal 11.0-306.8 [facility] Comment on above: Performed By: #### M G, [id number], RETIC, FE and TIBC, JOSE, BMP #### [facility] [address] Folate [Mass/volume] in Seru m or PlasmaOrdered By: Los Grissom on 07-03-2023 Folate [Mass/Vol] 11.1 ng/mL >5.9 [facility] Comment on above: Folate reference ran ge: >5.9 ng/mlThe WHO technical consultation on folate and vitamin [id number] has determined that folate concentrations lessthan 4 ng/ml are considered deficient. Glucose [Mass/volume] in Ser um or PlasmaOrdered By: Jim Randhawa on 07-03-2023 Glucose [Mass/Vol] 99 mg/dL Normal 70-100 [facility] Comment on above: ADA recommended refe rence rangeRandom Glucose Reference Range is dependent on time and content of last meal. Glucose of more than 200 mg/dL in a nonstressed, ambulatory subject supports the diagnosis of Diabetes Mellitus. Result Comment: [place] Glucose Reference Range is dependent on time and content of last meal. Glucose of more than 200 mg/dL in a nonstressed, ambulatory subject supports the diagnosis of Diabetes Mellitus. ADA recommended reference range Performed By: #### M G, [id number], RETIC, FE and TIBC, JOSE, BMP #### [facility] [address] Iron [Mass/volume] in Serum or PlasmaOrdered By: Los Grissom on 07-03-2023 Iron [Mass/Vol] 59 ug/dL Normal 50-212 [facility] Comment on above: Performed By: #### M G, [id number], RETIC, FE and TIBC, JOSE, BMP #### [facility] [address] Iron and TIBC Profileon % Iron Saturation 22.8 % Normal 20-50 [facility] Comment on above: Performed By: #### M G, [id number], RETIC, FE and TIBC, JOSE, BMP #### [facility] [address] Total Iron Binding Capacity 259 ug/dL Normal 255-450 [facility] Comment on above: Performed By: #### M G, [id number], RETIC, FE and TIBC, JOSE, BMP #### [facility] [address] Iron binding capacity [Mass/ volume] in Serum or PlasmaOrdered By: Los Grissom on 07-03-2023 Iron binding capacity [Mass/Vol] 259 ug/dL 255-450 [facility] Iron saturation [Mass Fracti on] in Serum or PlasmaOrdered By: Los Grissom on 07-03-2023 Iron saturation [Mass fraction] 22.8 % 20-50 [facility] Magnesium [Mass/volume] in S andrea or PlasmaOrdered By: Jim Randhawa on 07-03-2023 Magnesium [Mass/Vol] 2.0 mg/dL Normal 1.9-2.7 [facility] Comment on above: Performed By: #### M G, [id number], RETIC, FE and TIBC, JOSE, BMP #### [facility] [address] No Panel InformationOrdered By: Jim Randhawa on 07-03-2023 Estimated GFR (CKD-EPI) 23.348 mL/Min [facility] Creatinine Clearance (Chem 25.88 [facility] Potassium [Moles/volume] in Serum or PlasmaOrdered By: Jim Randhawa on 07-03-2023 Potassium [Moles/Vol] 3.9 mmol/L Normal 3.5-5.1 [facility] Comment on above: Performed By: #### M G, [id number], RETIC, FE and TIBC, JOSE, BMP #### [address] Reticulocyte Counton 024 Reticulocyte Number 0.039 10*6/uL Normal 0.024-0 .08 4 [facility] Comment on above: Result Comment: PERF ORMED BY: [place] [address] PATHOLOGIST [employer] TANNER GAVIN M.D. Performed By: #### M G, [id number], RETIC, FE and TIBC, JOSE, BMP #### [address] Reticulocyte Percent 1.5 % Normal 0.5-1.5 [facility] Comment on above: Performed By: #### M G, [id number], RETIC, FE and TIBC, JOSE, BMP #### [facility] [address] [place] [address] [place] Reticulocytes/100 RBC Auto ( Bld)Ordered By: Los Grissom on 07-03-2023 Reticulocytes/100 RBC (Bld) 1.5 % 0.5-1.5 [facility] Serum or plasma anion gap de terminationOrdered By: Jim Randhawa on 07-03-2023 Anion gap [Moles/Vol] 11.5 mmol/L Normal 6.0-15.[address] [facility] Comment on above: Performed By: #### M G, [id number], RETIC, FE and TIBC, JOSE, BMP #### [facility] [address] Sodium [Moles/volume] in Ser um or PlasmaOrdered By: Jim Randhawa on 07-03-2023 Sodium [Moles/Vol] 134 mmol/L Low 136-145 [facility] Comment on above: Performed By: #### M G, [id number], RETIC, FE and TIBC, JOSE, BMP #### [address] Transferrin [Mass/volume] in Serum or PlasmaOrdered By: Los Grissom on 07-03-2023 Transferrin [Mass/Vol] 185 mg/dL Low 203-[address] [facility] Comment on above: Performed By: #### M G, [id number], RETIC, FE and TIBC, JOSE, BMP #### [address] Urea nitrogen [Mass/volume] in Serum or PlasmaOrdered By: Jim Randhawa on 07-03-2023 Urea nitrogen [Mass/Vol] 95 mg/dL High 7-25 [facility] Comment on above: Performed By: #### M G, [id number], RETIC, FE and TIBC, JOSE, BMP #### [address] Vit. B12/Folate Profileon Folate 11.1 ng/mL Normal >5.9 [facility] Comment on above: Result Comment: [place] te reference range: >5.9 ng/ml The WHO technical consultation on folate and vitamin b12 deficiencies has determined that folate concentrations less than 4 ng/ml are considered deficient. PERFORMED BY: [place] [address] PATHOLOGIST [employer]ER TANNER GAVIN M.D. Performed By: #### M G, [id number], RETIC, FE and TIBC, JOSE, BMP #### [address] Vitamin B12 ser/plasOrdered By: Los Grissom on 07-03-2023 Cobalamin (Vitamin B12) [Mass/Vol] 3564 pg/mL High 180-914 [facility] Comment on above: Performed By: #### M G, [id number], RETIC, FE and TIBC, JOSE, BMP #### [facility] [address] [place] [address] Basic Metabolic Panelon 0 Anion gap [Moles/Vol] 11.0 mmol/L Normal 6.0-15.[address] [facility] Comment on above: Performed By: #### M G, [id number], RETIC, FE and TIBC, JOSE, BMP #### [address] Calcium [Mass/Vol] 8.4 mg/dL Low 8.6-10.3 [facility] Comment on above: Performed By: #### M G, [id number], RETIC, FE and TIBC, JOSE, BMP #### [facility] [address] [place] [address] Chloride [Moles/Vol] 104 mmol/L Normal 98-107 [facility] Comment on above: Performed By: #### Nadya G, [id number], RETIC, FE and TIBC, JOSE, BMP #### [address] CO2 [Moles/Vol] 20.2 mmol/L Low 21.0-31.0 [facility] Comment on above: Performed By: #### M G, [id number], RETIC, FE and TIBC, JOSE, BMP #### [address] Creatinine [Mass/Vol] 2.31 mg/dL High 0.60-1.20 [facility] Comment on above: Performed By: #### M G, [id number], RETIC, FE and TIBC, JOSE, BMP #### [address] Creatinine Clr Calc Pharmacy 26.22 [facility] Comment on above: Performed By: #### M G, [id number], RETIC, FE and TIBC, JOSE, BMP #### [facility] [address] GFR/1.73 sq M.predicted MDRD (S/P/Bld) [Vol rate/Area] 23.469 mL/min/{1.73_m2} Normal [facility] Comment on above: Performed By: #### M G, [id number], RETIC, FE and TIBC, JOSE, BMP #### [address] Glucose [Mass/Vol] 89 mg/dL Normal 70-100 [facility] Comment on above: Result Comment: [facility] Glucose Reference Range is dependent on time and content of last meal. Glucose of more than 200 mg/dL in a nonstressed, ambulatory subject supports the diagnosis of Diabetes Mellitus. ADA recommended reference range Performed By: #### M G, [id number], RETIC, FE and TIBC, JOSE, BMP #### [address] Potassium [Moles/Vol] 4.2 mmol/L Normal 3.5-5.1 [facility] Comment on above: Performed By: #### M G, [id number], RETIC, FE and TIBC, JOSE, BMP #### [address] Sodium [Moles/Vol] 131 mmol/L Low 136-145 [facility] Comment on above: Performed By: #### M G, [id number], RETIC, FE and TIBC, JOSE, BMP #### [address] Urea nitrogen [Mass/Vol] 100 mg/dL High 7-25 [facility] Comment on above: Performed By: #### M G, [id number], RETIC, FE and TIBC, JOSE, BMP #### [address] Erythrocyte distribution wid th Auto (RBC) [Ratio]Ordered By: Jim Randhawa on 07-02-2023 Erythrocyte distribution width (RBC) [Ratio] 14.2 % 11.9-15.3 [facility] Hematocrit Auto (Bld) [Volum e fraction]Ordered By: Jim Randhawa on 07-02-2023 Hematocrit (Bld) [Volume fraction] 25.0 % 34.0-46.4 [facility] Hemoglobin [Mass/volume] in BloodOrdered By: Jim Randhawa on 07-02-2023 Hemoglobin (Bld) [Mass/Vol] 8.4 g/dL 11.8-15.4 [facility] Hemogram CBC Without Diffon 07-02-2023 Erythrocyte distribution width (RBC) [Ratio] 14.2 % Normal 11.9-15.3 [facility] Comment on above: Performed By: #### M G, [id number], RETIC, FE and TIBC, OJSE, BMP #### [address] Hematocrit (Bld) [Volume fraction] 25.0 % Low 34.0-46.4 [facility] Comment on above: Performed By: #### M G, [id number], RETIC, FE and TIBC, JOSE, BMP #### [address] Hemoglobin (Bld) [Mass/Vol] 8.4 g/dL Low 11.8-15.4 [facility] Comment on above: Performed By: #### M G, [id number], RETIC, FE and TIBC, JOSE, BMP #### [address] MCH (RBC) [Entitic mass] 32.3 pg Normal 24.7-34.3 [facility] Comment on above: Performed By: #### M G, [id number], RETIC, FE and TIBC, JOSE, BMP #### [address] MCV (RBC) [Entitic vol] 96.6 fL Normal 80-100 [facility] Comment on above: Performed By: #### M G, [id number], RETIC, FE and TIBC, JOSE, BMP #### [address] Mean Corpuscular HGB Conc 33.4 g/dL Normal 32.0-35.0 [facility] Comment on above: Performed By: #### M G, [id number], RETIC, FE and TIBC, JOSE, BMP #### [address] Platelet mean volume (Bld) [Entitic vol] 7.7 fL Normal 6.3-10.7 [facility] Comment on above: Result Comment: PERF ORMED BY: [place] [address] PATHOLOGIST [employer]ER TANNER GAVIN M.D. Performed By: #### M G, [id number], RETIC, FE and TIBC, JOSE, BMP #### [address] Platelets (Bld) [#/Vol] 217 10*3/uL Normal 150-450 [facility] Comment on above: Performed By: #### Nadya G, [id number], RETIC, FE and TIBC, JOSE, BMP #### [address] RBC (Bld) [#/Vol] 2.59 10*6/uL Low 3.60-5.00 [facility] Comment on above: Performed By: #### M G, [id number], RETIC, FE and TIBC, JOSE, BMP #### [address] WBC (Bld) [#/Vol] 6.1 10*3/uL Normal 3.8-11.6 [facility] Comment on above: Performed By: #### M G, [id number], RETIC, FE and TIBC, JOSE, BMP #### [address] Leukocytes [#/volume] correc nicol for nucleated erythrocytes in Blood by Automated counOrdered By: Jim Randhawa on 07-02-2023 WBC corrected for nucl RBC Auto (Bld) [#/Vol] 6.1 10*3/uL 3.8-11.6 [facility] MCH Auto (RBC) [Entitic mass ]Ordered By: Jim Randhawa on 07-02-2023 MCH (RBC) [Entitic mass] 32.3 pg 24.7-34.3 [facility] MCHC Auto (RBC) [Mass/Vol]Or dered By: Jim Randhawa on 07-02-2023 MCHC (RBC) [Mass/Vol] 33.4 g/dL 32.0-35.0 [facility] MCV Auto (RBC) [Entitic vol] Ordered By: Jim Randhawa on 07-02-2023 MCV (RBC) [Entitic vol] 96.6 fL 80-100 [facility] Magnesiumon 07-02-2023 Magnesium [Mass/Vol] 2.1 mg/dL Normal 1.9-2.7 [facility] Comment on above: Result Comment: PERF ORMED BY: [place] [address] PATHOLOGIST [employer] TANNER GAVIN M.D. Performed By: #### M G, [id number], RETIC, FE and TIBC, JOSE, BMP #### [address] Platelet mean volume Auto (B ld) [Entitic vol]Ordered By: Jim Randhawa on 07-02-2023 Platelet mean volume (Bld) [Entitic vol] 7.7 fL 6.3-10.7 [facility] Platelets Auto (Bld) [#/Vol] Ordered By: Jim Randhawa on 07-02-2023 Platelets (Bld) [#/Vol] 217 10*3/uL 150-450 [facility] RBC Auto (Bld) [#/Vol]Ordere d By: Jim Randhawa on 07-02-2023 RBC (Bld) [#/Vol] 2.59 10*6/uL 3.60-5.00 [facility] Basic Metabolic Panelon Anion gap [Moles/Vol] 11.9 mmol/L Normal 6.0-15.[address] [facility] Comment on above: Order Comment: LINE DRAW Performed By: #### M G, [id number], RETIC, FE and TIBC, JOSE, BMP #### [facility] [address] Calcium [Mass/Vol] 8.9 mg/dL Normal 8.6-10.3 [facility] Comment on above: Order Comment: LINE DRAW Performed By: #### M G, [id number], RETIC, FE and TIBC, JOSE, BMP #### [facility] [address] Chloride [Moles/Vol] 108 mmol/L High 98-107 [facility] Comment on above: Order Comment: LINE DRAW Performed By: #### M G, [id number], RETIC, FE and TIBC, JOSE, BMP #### [facility] [address] [place] [address] CO2 [Moles/Vol] 18.5 mmol/L Low 21.0-31.0 [facility] Comment on above: Order Comment: LINE DRAW Performed By: #### M G, [id number], RETIC, FE and TIBC, JOSE, BMP #### [facility] [address] [place] [address] Creatinine [Mass/Vol] 2.63 mg/dL Significan t change up 0.60-1.20 [facility] Comment on above: Order Comment: LINE DRAW Performed By: #### M G, [id number], RETIC, FE and TIBC, JOSE, BMP #### [facility] [address] [place] [address] Creatinine Clr Calc Pharmacy 23.09 [facility] Comment on above: Order Comment: LINE DRAW Performed By: #### M G, [id number], RETIC, FE and TIBC, JOSE, BMP #### [facility] [address] [place] [address] GFR/1.73 sq M.predicted MDRD (S/P/Bld) [Vol rate/Area] 20.085 mL/min/{1.73_m2} Normal [facility] Comment on above: Order Comment: LINE DRAW Performed By: #### M G, [id number], RETIC, FE and TIBC, JOSE, BMP #### [facility] [address] Glucose [Mass/Vol] 128 mg/dL High 70-100 [facility] Comment on above: Order Comment: LINE DRAW Result Comment: [place] Glucose Reference Range is dependent on time and content of last meal. Glucose of more than 200 mg/dL in a nonstressed, ambulatory subject supports the diagnosis of Diabetes Mellitus. ADA recommended reference range Performed By: #### M G, [id number], RETIC, FE and TIBC, JOSE, BMP #### [facility] [address] Potassium [Moles/Vol] 4.4 mmol/L Normal 3.5-5.1 [facility] Comment on above: Order Comment: LINE DRAW Performed By: #### M G, [id number], RETIC, FE and TIBC, JOSE, BMP #### [facility] [address] Sodium [Moles/Vol] 134 mmol/L Low 136-145 [facility] Comment on above: Order Comment: LINE DRAW Performed By: #### M G, [id number], RETIC, FE and TIBC, JOSE, BMP #### [facility] [address] [place] [address] [place] Urea nitrogen [Mass/Vol] 104 mg/dL High 7-25 [facility] Comment on above: Order Comment: LINE DRAW Performed By: #### M G, [id number], RETIC, FE and TIBC, JOSE, BMP #### [facility] [address] [place] [address] [place] Magnesiumon 07-01-2023 Magnesium [Mass/Vol] 2.3 mg/dL Normal 1.9-2.7 [facility] Comment on above: Order Comment: LINE DRAW Result Comment: PERF ORMED BY: [place] [address] [place] [address] PATHOLOGIST AMERICANIZATION TEACHER TANNER GAVIN M.D. Performed By: #### M G, [id number], RETIC, FE and TIBC, JOSE, BMP #### [address] Basic Metabolic Panelon -0 Anion gap [Moles/Vol] 14.6 mmol/L Normal 6.0-15.[address] [facility] Comment on above: Performed By: #### M G, [id number], RETIC, FE and TIBC, JOSE, BMP #### [address] Calcium [Mass/Vol] 8.6 mg/dL Normal 8.6-10.3 [facility] Comment on above: Performed By: #### M G, [id number], RETIC, FE and TIBC, JOSE, BMP #### [address] Chloride [Moles/Vol] 109 mmol/L High 98-107 [facility] Comment on above: Performed By: #### M G, [id number], RETIC, FE and TIBC, JOSE, BMP #### [address] CO2 [Moles/Vol] 15.0 mmol/L Low 21.0-31.0 [facility] Comment on above: Performed By: #### M G, [id number], RETIC, FE and TIBC, JOSE, BMP #### [address] Creatinine [Mass/Vol] 3.16 mg/dL High 0.60-1.20 [facility] Comment on above: Performed By: #### M G, [id number], RETIC, FE and TIBC, JOSE, BMP #### [address] Creatinine Clr Calc Pharmacy 19.26 [facility] Comment on above: Performed By: #### M G, [id number], RETIC, FE and TIBC, JOSE, BMP #### [facility] [address] [place] [address] [place] GFR/1.73 sq M.predicted MDRD (S/P/Bld) [Vol rate/Area] 16.114 mL/min/{1.73_m2} Normal [facility] Comment on above: Performed By: #### M G, [id number], RETIC, FE and TIBC, JOSE, BMP #### [facility] [address] Glucose [Mass/Vol] 79 mg/dL Normal 70-100 [facility] Comment on above: Result Comment: [facility] Glucose Reference Range is dependent on time and content of last meal. Glucose of more than 200 mg/dL in a nonstressed, ambulatory subject supports the diagnosis of Diabetes Mellitus. ADA recommended reference range Performed By: #### M G, [id number], RETIC, FE and TIBC, JOSE, BMP #### [address] Potassium [Moles/Vol] 4.6 mmol/L Normal 3.5-5.1 [facility] Comment on above: Performed By: #### M G, [id number], RETIC, FE and TIBC, JOSE, BMP #### [address] Sodium [Moles/Vol] 134 mmol/L Low 136-145 [facility] Comment on above: Performed By: #### M G, [id number], RETIC, FE and TIBC, JOSE, BMP #### [address] Urea nitrogen [Mass/Vol] 117 mg/dL High 7-25 [facility] Comment on above: Performed By: #### M G, [id number], RETIC, FE and TIBC, JOSE, BMP #### [address] Magnesiumon 06-30-2023 Magnesium [Mass/Vol] 2.5 mg/dL Normal 1.9-2.7 [facility] Comment on above: Result Comment: PERF ORMED BY: [place] [address] [place] [address] PATHOLOGIST AMERICANIZATION TEACHER TANNER GAVIN M.D. Performed By: #### M G, [id number], RETIC, FE and TIBC, JOSE, BMP #### [facility] [address] [place] [id number] [facility] Office Visiton 02-22-2023 Follow-up visit [id number] Loren Moser marii A 1960 F Date Provider Department Center 02/22/2023 120-RHIANNON BERNARD C[facility] Family History Family history unknown: Yes Level of Service:64667 [place] OFFICE/OUTPATIENT ESTABLISHED MOD MDM 30-39 MIN Normal [facility] Follow-Upon 02-16-2023 Follow-Up [id number] Loren Moser marii A 1960 F Date Provider Department Center 02/16/2023 293-DUNCAN DENNIS MP ORTHO MPORTHO Family History Family history unknown: Yes Level of Service:92316 [place] OFFICE/OUTPATIENT ESTABLISHED LOW MDM 20-29 MIN Reason for Visit and Comments: Pain [136] [facility] Consultation Noteon 02-10-20 Consultation Note [id number]#1.00CD:127 [facility] 36on 02-08-2023 36 Called patient to in form her she needs the CT done before her follow up w/ francisco. The appt has been cancelled and needs rescheduled. Normal [facility] Consultation Noteon 02-09-20 Consultation Note [id number]#1.00CD:127 [facility] RAD - MISCon 02-08-2023 RAD - MISC [id number]#1.00CD:127 [facility] 29on 01-13-2023 29 Addended by: OLU TORRES on: 02/07/2023 12:47 PM Modules accepted: Orders Normal [facility] Office Visiton 01-13-2023 Follow-up visit [id number] Loren Moser A 1960 Provider Department Center 01/13/2023 SHERLY ROWE MP ORTHO MPORTHO Family History Family history unknown: Yes Level of Service:33209 [place] OFFICE/OUTPATIENT NEW MODERATE MDM 45-59 MINUTES Reason for Visit and Comments: Pain [136] Pain [136] [facility] 36on 12-23-2022 36 Please tell her the renal function is much better now (creatinine 1.4 on 12/20/2022). I don't think she need to increase water pills. Follow up labs as scheduled. [facility] Telephoneon 12-23-2022 Telephone [id number] Loren Moser A 1960 Provider Department Center 12/23/2022 BENJIE LERMA YVONNE [facility] No family history on file [facility] Office Visiton 12-15-2022 Follow-up visit [id number] Loren Moser A 1960 Provider Department Center 12/15/2022 BENJIE LERMA YVONNE [facility] No family history on file Level of Service:60353 [place] OFFICE/OUTPATIENT ESTABLISHED MOD MDM 30-39 MIN Reason for Visit and Comments: Follow-up [212150] [facility] HPon 11-30-2022 HP H&P reviewed. The pa lux was examined and there are no changes to the H&P. [facility] NURSNOTEon 11-30-2022 NURSNOTE RN educated pt on d/ c instructions. RN encouraged pt to voice any questions or concerns. Pt verbalizes no questions or concerns at this time. Pt was walked off of unit with all of belongings. [facility] Orders Onlyon 11-23-2022 Orders Only [id number] Loren Moser A 1960 Provider Department Center 11/23/2022 MARTHA LAZCANO [facility] No family history on file [facility] CBC AUTO DIFFon 11-22-2022 BASO # 0.0 103/ul Normal 0.0-0.1 [facility] Comment on above: Performed By: #### C BC ####[facility] [address]ju[address] [place], [place] [address]Dr. Airam Tripathi Basophils/100 WBC (Bld) 0.6 % Normal 0.2-2.0 [facility] Comment on above: Performed By: #### C BC ####[facility] Xsmucsmdjz[address] [place], [place] [address]Dr. Airam Tripathi EO # 0.1 103/ul Normal 0.0-0.7 [facility] Comment on above: Performed By: #### C BC ####[facility] Zasheqhbid[address] [place], [place] [address]Dr. Airam Tripathi Eosinophils/100 WBC (Bld) 1.7 % Normal 0.9-7.0 [facility] Comment on above: Performed By: #### C BC ####[facility] Lmifqouarf[address] [place], [place] [address]Dr. Airam Deuce Erythrocyte distribution width (RBC) [Ratio] 15.2 % Critically high 11.0-15.0 [facility] Comment on above: Performed By: #### C BC ####[facility] Yfcaqrwzto[address] [place], [place] [address]Dr. Airam Tripathi Hematocrit (Bld) [Volume fraction] 31.6 % Critically low 36.0-48.0 [facility] Comment on above: Performed By: #### C BC ####[facility] Vnuiaaltcq[address] [place], [place] [address]Dr. Airam Tripathi Hemoglobin (Bld) [Mass/Vol] 9.9 g/dL Critically low 12.0-16.0 [facility] Comment on above: Performed By: #### C BC ####[facility] Zakurxktmj[address] [place], [place] [address]Dr. Airam Tripathi IG # 0.02 10e3/ul Normal 0.00-0.03 [facility] Comment on above: Performed By: #### C BC ####[facility] [address] [place] [address]Dr. Airam Tripathi IG % 0.4 % Normal 0.0-0.5 [facility] Comment on above: Performed By: #### C BC ####[facility] [address] [place] [address]Dr. Airam Tripathi LYMPH # 0.8 103/ul Critically low 1.2-3.8 [facility] Comment on above: Performed By: #### C BC ####[facility] Mxtrercpzm[address] [place], [place] [address]Dr. Airam Tripathi Lymphocytes/100 WBC (Bld) 16.9 % Critically low 20.5-60.0 [facility] Comment on above: Performed By: #### C BC ####[facility] E[address]emjzlxa[address] [place], [place] [address]Dr. Airam Tripathi MANUAL DIFF REQ NO Normal [facility] Comment on above: Performed By: #### C BC ####[facility] Buvtujwdvq[address] [place], [place] [address]Dr. Airam Tripathi MCH (RBC) [Entitic mass] 28.4 pg Normal 26.7-34.0 [facility] Comment on above: Performed By: #### C BC ####[facility] Atjohlfz[address] [place], [place] [address]Dr. Airam Tripathi MCHC (RBC) [Mass/Vol] 31.3 g/dL Normal 29.9-35.2 [facility] Comment on above: Performed By: #### C BC ####[facility] Gqdpdtfqbr[address] [place], [place] [address]DrKianna Tripathi MCV (RBC) [Entitic vol] 90.8 fL Normal 81.0-99.0 [facility] Comment on above: Performed By: #### C BC ####[facility] [address]of[address]adhuw[address] [place], [place] [address]DrKianna Tripathi MONO # 0.4 103/ul Normal 0.3-0.8 [facility] Comment on above: Performed By: #### C BC ####[facility] Pyonruofcb[address] [place], [place] [address]Dr. Airam Tripathi Monocytes/100 WBC (Bld) 8.9 % Normal 1.7-12.0 [facility] Comment on above: Performed By: #### C BC ####[facility] [address] [place] [address]Dr. Airam Tripathi NEUT # 3.4 103/ul Normal 1.4-6.5 [facility] Comment on above: Performed By: #### C BC ####[facility] [address]eg[address] [place] [address]Dr. Airam Tripathi Neutrophils/100 WBC (Bld) 71.5 % Normal 43.0-75.0 [facility] Comment on above: Performed By: #### C BC ####[facility] Sluzehlffq[address] [place], [place] [address]Dr. Airam Tripathi Platelet mean volume (Bld) [Entitic vol] 9.4 fL Critically low 9.5-13.5 [facility] Comment on above: Performed By: #### C BC ####[facility] [address]ct[address] [place] [address]Dr. Airam Tripathi PLT 302 103/ul Normal 150-450 [facility] Comment on above: Performed By: #### C BC ####[facility] Avubbkgmks[address] [place], [place] [address]Dr. Airam Tripathi RBC 3.48 106/ul Critically low 4.20-5.40 [facility] Comment on above: Performed By: #### C BC ####[facility] Zgbhqb[address]nc[address] [place], [place] [address]Dr. Airam Tripathi WBC 4.7 103/ul Normal 4.0-11.0 [facility] Comment on above: Performed By: #### C BC ####[facility] Voodhritzm[address] [place], [place] [address]Dr. Selenaneil Tripathi PROF 14(COMP METB)on 023 Albumin [Mass/Vol] 3.4 g/dL Normal 3.4-5.0 [facility] Comment on above: Performed By: #### C MP ####[facility] [address] [place], [place] [address]Dr. Airam Tripathi Albumin/Globulin [Mass ratio] 1.0 {ratio} Normal [facility] Comment on above: Performed By: #### C MP ####[facility] [address] [place] [address]Dr. Airam Deuce ALP [Catalytic activity/Vol] 123 U/L Critically high 46-116 [facility] Comment on above: Performed By: #### C MP ####[facility] G[address]qyduqpg[address] [place], [place] [address]Dr. Airam Tripathi ALT [Catalytic activity/Vol] 24 U/L Normal 14-59 [facility] Comment on above: Performed By: #### C MP ####[facility] Qxxtqydzce[address] [place], [place] [address]Dr. Airam Tripathi Anion gap [Moles/Vol] 12.1 mmol/L Normal [facility] Comment on above: Performed By: #### C MP ####[facility] X[address]auq[address] [place], [place] [address]Dr. Airam Tripathi AST [Catalytic activity/Vol] 30 U/L Normal 15-37 [facility] Comment on above: Performed By: #### C MP ####[facility] J[address]zgqsrkb[address] [place], [place] [address]Dr. Airam Tripathi Bilirubin [Mass/Vol] 0.4 mg/dL Normal 0.2-1.0 [facility] Comment on above: Performed By: #### C MP ####[facility] Xagzedtkmb[address] [place], [place] [address]Dr. Airam Tripathi Calcium [Mass/Vol] 8.9 mg/dL Normal 8.5-10.1 [facility] Comment on above: Performed By: #### C MP ####[facility] Xziyvzkpwp[address] [place], [place] [address]Dr. Airam Tripathi Chloride [Moles/Vol] 95 mmol/L Critically low 98-107 [facility] Comment on above: Performed By: #### C MP ####[facility] J[address]mfwbiyd[address] [place], [place] [address]Dr. Airam Tripathi CO2 [Moles/Vol] 28.7 mmol/L Normal 21.0-32.0 [facility] Comment on above: Performed By: #### C MP ####[facility] [address] [place] [address]Dr. Airam Tripathi Creatinine [Mass/Vol] 1.25 mg/dL Critically high 0.55-1.02 [facility] Comment on above: Performed By: #### C MP ####[facility] [address] [place] [address]Dr. Airam Tripathi EGFR-AF MALAGASY 53 mL/min/1.73m2 Critically low >=60 [facility] Comment on above: Performed By: #### C MP ####[facility] Pcorlcnboz[address] [place], [place] [address]Dr. Airam Tripathi EGFR-NON AF MALAGASY 44 mL/min/1.73m2 Critically low >=60 [facility] Comment on above: Performed By: #### C MP ####[facility] K[address]qyvrkau[address] [place], [place] [address]Dr. Airam Tripathi Globulin (S) [Mass/Vol] 3.5 g/dL Normal [facility] Comment on above: Performed By: #### C MP ####[facility] Kdwlurqslo[address] [place], [place] [address]Dr. Airam Tripathi Glucose [Mass/Vol] 89 mg/dL Normal 74-106 [facility] Comment on above: Performed By: #### C MP ####[facility] Ybtspjatdm[address] [place], [place] [address]Dr. Airam Tripathi Potassium [Moles/Vol] 4.8 mmol/L Normal 3.5-5.1 [facility] Comment on above: Performed By: #### C MP ####[facility] Rwgkvvwezy[address] [place], [place] [address]Dr. Airam Tripathi Protein [Mass/Vol] 6.9 g/dL Normal 6.4-8.2 [facility] Comment on above: Performed By: #### C MP ####[facility] Wvplxblinp[address] [place], [place] [address]Dr. Airam Tripathi Sodium [Moles/Vol] 131 mmol/L Critically low 136-145 [facility] Comment on above: Performed By: #### C MP ####[facility] Myfyyljmaf[address] [place], [place] [address]Dr. Airam Tripathi Urea nitrogen [Mass/Vol] 37.0 mg/dL Critically high 7.0-18.0 [facility] Comment on above: Performed By: #### C MP ####[facility] Wjkvojadky[address] [place], [place] [address]Dr. Airam Tripathi Urea nitrogen/Creatinine [Mass ratio] 29.6 mg/mg Normal [facility] Comment on above: Performed By: #### C MP ####[facility] Hwhugggpqy[address] [place], [place] [address]Dr. Airam Tripathi OSMOLALITYon 11-18-2022 Osmolality [Osmolality] 293 mosm/kg Normal 275-295 [facility] Comment on above: Performed By: #### O SMO ####[facility] Pzvyxt[address]jkw[address] [place], [place] [address]Dr. Airam Tripathi BNPon 11-16-2022 Natriuretic peptide B (Bld) [Mass/Vol] 1142.0 pg/mL Critically high <=900.0 [facility] Comment on above: Performed By: #### B ADMINISTRATIVE OFFICER ####[facility] Opbalxrhts[address] [place], [place] [address]Dr. Airam Tripathi CBC AUTO DIFFon 11-16-2022 BASO # 0.0 103/ul Normal 0.0-0.1 [facility] Comment on above: Performed By: #### C BC ####[facility] Mkibptcayh[address] [place], [place] [address]Dr. Airam Tripathi Basophils/100 WBC (Bld) 0.3 % Normal 0.2-2.0 [facility] Comment on above: Performed By: #### C BC ####[facility] [address]safkjuxvs[address] [place], [place] [address]Dr. Airam Tripathi EO # 0.3 103/ul Normal 0.0-0.7 [facility] Comment on above: Performed By: #### C BC ####[facility] [address] [place] [id number]. Airam Tripathi Eosinophils/100 WBC (Bld) 4.6 % Normal 0.9-7.0 [facility] Comment on above: Performed By: #### C BC ####[facility] [address] [place] [address]Dr. Airam Tripathi Erythrocyte distribution width (RBC) [Ratio] 16.1 % Critically high 11.0-15.0 [facility] Comment on above: Performed By: #### C BC ####[facility] Rjchfiqbut[address] [place], [place] [address]Dr. Airam Tripathi Hematocrit (Bld) [Volume fraction] 28.0 % Critically low 36.0-48.0 [facility] Comment on above: Performed By: #### C BC ####[facility] Bwnfjsptsh[address] [place], [place] [address]Dr. Airam Tripathi Hemoglobin (Bld) [Mass/Vol] 8.9 g/dL Critically low 12.0-16.0 [facility] Comment on above: Performed By: #### C BC ####[facility] Zuchylpbim[address] [place], [place] [address]Dr. Airam Tripathi IG # 0.02 10e3/ul Normal 0.00-0.03 [facility] Comment on above: Performed By: #### C BC ####[facility] [address]zic[address] [place] [address]Dr. Airam Tripathi IG % 0.3 % Normal 0.0-0.5 [facility] Comment on above: Performed By: #### C BC ####[facility] Xyibxokaju[address] [place], [place] [address]Dr. Airam Tripathi LYMPH # 1.5 103/ul Normal 1.2-3.8 [facility] Comment on above: Performed By: #### C BC ####[facility] Udxrpwqbor[address] [place], [place] [address]Dr. Airam Tripathi Lymphocytes/100 WBC (Bld) 24.2 % Normal 20.5-60.0 [facility] Comment on above: Performed By: #### C BC ####[facility] [address] [place] [id number]. Airam Tripathi MANUAL DIFF REQ NO Normal [facility] Comment on above: Performed By: #### C BC ####[facility] [address] [place] [id number]. Airam Tripathi MCH (RBC) [Entitic mass] 29.3 pg Normal 26.7-34.0 [facility] Comment on above: Performed By: #### C BC ####[facility] Anfzaotgnx[address] [place], [place] [address]Dr. Airam Tripathi MCHC (RBC) [Mass/Vol] 31.8 g/dL Normal 29.9-35.2 [facility] Comment on above: Performed By: #### C BC ####[facility] Xv[address]wwdqrh[address] [place], [place] [address]Dr. Airam Tripathi MCV (RBC) [Entitic vol] 92.1 fL Normal 81.0-99.0 [facility] Comment on above: Performed By: #### C BC ####[facility] Y[address]ubdcb[address] [place], [place] [address]Dr. Airam Tripathi MONO # 0.6 103/ul Normal 0.3-0.8 [facility] Comment on above: Performed By: #### C BC ####[facility] [address]jdeg[address]xr[address] [place], [place] [address]Dr. Airam Tripathi Monocytes/100 WBC (Bld) 10.0 % Normal 1.7-12.0 [facility] Comment on above: Performed By: #### C BC ####[facility] [address]bsbc[address] [place], [place] [address]Dr. Airam Tripathi NEUT # 3.7 103/ul Normal 1.4-6.5 [facility] Comment on above: Performed By: #### C BC ####[facility] [address]fjwsvcwg[address] [place], [place] [address]Dr. Airam Tripathi Neutrophils/100 WBC (Bld) 60.6 % Normal 43.0-75.0 [facility] Comment on above: Performed By: #### C BC ####[facility] [address]se[address] [place] [id number]. Airam Tripathi Platelet mean volume (Bld) [Entitic vol] 9.1 fL Critically low 9.5-13.5 [facility] Comment on above: Performed By: #### C BC ####[facility] [address] [place] [id number]. Airam Tripathi PLT 242 103/ul Normal 150-450 [facility] Comment on above: Performed By: #### C BC ####[facility] [address] [place] [id number]. Airam Tripathi RBC 3.04 106/ul Critically low 4.20-5.40 [facility] Comment on above: Performed By: #### C BC ####[facility] [address] [place] [address]Dr. Airam Tripathi WBC 6.1 103/ul Normal 4.0-11.0 [facility] Comment on above: Performed By: #### C BC ####[facility] [address]ysv[address] [place], [place] [address]Dr. Airam Tripathi CT STROKE HEAD WOon 11-17-19 CT STROKE HEAD WO Normal [facility] PROF CHEM 8 (BAS METB)on Anion gap [Moles/Vol] 9.8 mmol/L Normal [facility] Comment on above: Performed By: #### B GERTRUDE, HSTROPN ####[facility] [address] [place] [address]Dr. Airam Tripathi Calcium [Mass/Vol] 8.4 mg/dL Critically low 8.5-10.1 [facility] Comment on above: Performed By: #### B MP, HSTROPN ####[facility] [address] [place] [address]Dr. Airam Tripathi Chloride [Moles/Vol] 99 mmol/L Normal 98-107 [facility] Comment on above: Performed By: #### B GERTRUDE, HSTROPN ####[facility] [address]fs[address] [place] [address]Dr. Airam Tripathi CO2 [Moles/Vol] 28.3 mmol/L Normal 21.0-32.0 [facility] Comment on above: Performed By: #### B GERTRUDE, HSTROPN ####[facility] [address] [place] [address]Dr. Airam Tripathi Creatinine [Mass/Vol] 1.40 mg/dL Critically high 0.55-1.02 [facility] Comment on above: Performed By: #### Bob LOREDO, HSTROPN ####[facility] [address]whp[address] [place], [place] [address]Dr. Selenaneil Tripathi EGFR-AF MALAGASY 46 mL/min/1.73m2 Critically low >=60 [facility] Comment on above: Performed By: #### Bob LOREDO, HSTROPN ####[facility] [address]qeqwind[address] [place], [place] [address]Dr. Airam Tripathi EGFR-NON AF MALAGASY 38 mL/min/1.73m2 Critically low >=60 [facility] Comment on above: Performed By: #### Bob LOREDO, HSTROPN ####[facility] [address]eb[address]xwso[address] [place], [place] [address]Dr. Airam Tripathi Glucose [Mass/Vol] 88 mg/dL Normal 74-106 [facility] Comment on above: Performed By: #### Bob LOREDO, HSTROPN ####[facility] Hnembs[address]cj[address] [place], [place] [address]Dr. Airam Tripathi Potassium [Moles/Vol] 5.1 mmol/L Normal 3.5-5.1 [facility] Comment on above: Performed By: #### Bob LOREDO, HSTROPN ####[facility] [address]yr[address] [place], [place] [address]Dr. Airam Tripathi Sodium [Moles/Vol] 132 mmol/L Critically low 136-145 [facility] Comment on above: Performed By: #### Bob LOREDO, HSTROPN ####[facility] [address]nsr[address]xs[address] [place], [place] [address]Dr. Airam Tripathi Urea nitrogen [Mass/Vol] 56.0 mg/dL Critically high 7.0-18.0 [facility] Comment on above: Performed By: #### B GERTRUDE HSTROPN ####[facility] [address] [place] [address]Dr. Airam Tripathi Urea nitrogen/Creatinine [Mass ratio] 40.0 mg/mg Normal [facility] Comment on above: Performed By: #### B GERTRUDE HSTROPN ####[facility] [address] [place] [address]Dr. Airam Deuce TROPONIN, HIGH SENSITIVITYon 11-16-2022 HSTROP 9.9 pg/mL Normal 4.0-51.3 [facility] Comment on above: Result Comment: CUT- OFF POINTS HAVE BEEN ESTABLISHED BASED ON THE FOURTH UNIVERSAL DEFINITIONS OF MYOCARDIALINFARCTION. THE UPPER REFERENCE LIMIT (URL) OF TROPONIN, DEFINED THE 99TH PERCENTILE OFcTnI DISTRIBUTION IN A REFERENCE POPULATION, HAS BEEN CONFIRMED THE DECISION THRESHOLDFOR MA DIAGNOSIS. Performed By: #### B GERTRUDE HSTROPN ####[facility] Llpvdhwn[address] [place], [place] [address]Dr. Airam Tripathi XR CHEST 1 Von 11-16-2022 XR CHEST 1 V Normal [facility] CBC AUTO DIFFon 11-11-2022 BASO # 0.0 103/ul Normal 0.0-0.1 [facility] Comment on above: Performed By: #### C BC ####[facility] N[address]qqtlw[address] [place], [place] [address]Dr. Selenaneil Tripathi Basophils/100 WBC (Bld) 0.4 % Normal 0.2-2.0 [facility] Comment on above: Performed By: #### C BC ####[facility] [address] [place] [address]Dr. Selenaneil Tripathi EO # 0.4 103/ul Normal 0.0-0.7 [facility] Comment on above: Performed By: #### C BC ####[facility] Nfeafdxohv[address] [place] [address]Dr. Airam Deuce Eosinophils/100 WBC (Bld) 4.6 % Normal 0.9-7.0 [facility] Comment on above: Performed By: #### C BC ####[facility] Zyrcuwshkx[address] [place] [address]Dr. Airam Tripathi Erythrocyte distribution width (RBC) [Ratio] 15.8 % Critically high 11.0-15.0 [facility] Comment on above: Performed By: #### C BC ####[facility] Hcxbkuepye[address] [place] [address]Dr. Airam Tripathi Hematocrit (Bld) [Volume fraction] 30.3 % Critically low 36.0-48.0 [facility] Comment on above: Performed By: #### C BC ####[facility] Haadmbfl[address] [place], [place] [address]Dr. Airam Tripathi Hemoglobin (Bld) [Mass/Vol] 9.3 g/dL Critically low 12.0-16.0 [facility] Comment on above: Performed By: #### C BC ####[facility] Fzvopzpo[address] [place], [place] [address]Dr. Airam Tripathi IG # 0.03 10e3/ul Normal 0.00-0.03 [facility] Comment on above: Performed By: #### C BC ####[facility] Pclvpnij[address] [place], [place] [address]Dr. Airam Tripathi IG % 0.4 % Normal 0.0-0.5 [facility] Comment on above: Performed By: #### C BC ####[facility] Bmzyosxmjm[address] [place], [place] [address]Dr. Airam Tripathi LYMPH # 2.0 103/ul Normal 1.2-3.8 [facility] Comment on above: Performed By: #### C BC ####[facility] Vymaincvnx[address] [place], [place] [address]Dr. Airam Tripathi Lymphocytes/100 WBC (Bld) 24.5 % Normal 20.5-60.0 [facility] Comment on above: Performed By: #### C BC ####[facility] Ksienaeqzb[address] [place], [place] [address]Dr. Airam Tripathi MANUAL DIFF REQ NO Normal [facility] Comment on above: Performed By: #### C BC ####[facility] [address] [place] [id number]. Airam Tripathi MCH (RBC) [Entitic mass] 28.9 pg Normal 26.7-34.0 [facility] Comment on above: Performed By: #### C BC ####[facility] Neepamriru[address] [place] [id number]. Airam Tripathi MCHC (RBC) [Mass/Vol] 30.7 g/dL Normal 29.9-35.2 [facility] Comment on above: Performed By: #### C BC ####[facility] Bmxriicido87[address] [place] [id number]. Airam Tripathi MCV (RBC) [Entitic vol] 94.1 fL Normal 81.0-99.0 [facility] Comment on above: Performed By: #### C BC ####[facility] Grcnlnfkmb[address] [place], [place] [address]Dr. Airam Tripathi MONO # 0.7 103/ul Normal 0.3-0.8 [facility] Comment on above: Performed By: #### C BC ####[facility] Dgrluuacms[address] [place] [address]Dr. Airam Tripathi Monocytes/100 WBC (Bld) 8.3 % Normal 1.7-12.0 [facility] Comment on above: Performed By: #### C BC ####[facility] Gdvldpucpr[address] [place], [place] [address]Dr. Airam Tripathi NEUT # 5.0 103/ul Normal 1.4-6.5 [facility] Comment on above: Performed By: #### C BC ####[facility] Viqfwkwsoz[address] [place], [place] [address]Dr. Airam Deuce Neutrophils/100 WBC (Bld) 61.8 % Normal 43.0-75.0 [facility] Comment on above: Performed By: #### C BC ####[facility] Ykdijyipcy[address] [place], [place] [address]Dr. Airam Tripathi Platelet mean volume (Bld) [Entitic vol] 9.4 fL Critically low 9.5-13.5 [facility] Comment on above: Performed By: #### C BC ####[facility] Labgmhgwak5[address] [place] [id number]. Airam Tripathi PLT 270 103/ul Normal 150-450 [facility] Comment on above: Performed By: #### C BC ####[facility] Llsrxnjrxj8[address] [place] [id number]. Airam Tripathi RBC 3.22 106/ul Critically low 4.20-5.40 [facility] Comment on above: Performed By: #### C BC ####[facility] Xjcrveuqpa5654 [place] [id number]. Airam Tripathi WBC 8.1 103/ul Normal 4.0-11.0 [facility] Comment on above: Performed By: #### C BC ####[facility] Wyfdfuyciy[address] [place] [address]Dr. Airam Tripathi PROF 14(COMP METB)on 023 Albumin [Mass/Vol] 3.2 g/dL Critically low 3.4-5.0 [facility] Comment on above: Performed By: #### C MP ####[facility] Bdjiazsava40[address] [place] [address]Dr. Airam Tripathi Albumin/Globulin [Mass ratio] 1.0 {ratio} Normal [facility] Comment on above: Performed By: #### C MP ####[facility] Zndoztywfh8[address] [place] [address]Dr. Airam Tripathi ALP [Catalytic activity/Vol] 108 U/L Normal 46-116 [facility] Comment on above: Performed By: #### C MP ####[facility] Ydxnwuolak46[address] [place] [id number]. Airam Tripathi ALT [Catalytic activity/Vol] 30 U/L Normal 14-59 [facility] Comment on above: Performed By: #### C MP ####[facility] Achqmjyjsd33[address] [place] [phone]. Airam Tripathi Anion gap [Moles/Vol] 12.8 mmol/L Normal [facility] Comment on above: Performed By: #### C MP ####[facility] [address]jeftbmui4[address] [place], [place] [address]Zj. Airam Tripathi AST [Catalytic activity/Vol] 33 U/L Normal 15-37 [facility] Comment on above: Performed By: #### C MP ####[facility] Enpdmppcgd2177 [place], [place] [address]Px. Airam Tripathi Bilirubin [Mass/Vol] 0.2 mg/dL Normal 0.2-1.0 [facility] Comment on above: Performed By: #### C MP ####[facility] Hciqogjirr88[address] [place] [phone]. Airam Tripathi Calcium [Mass/Vol] 8.3 mg/dL Critically low 8.5-10.1 [facility] Comment on above: Performed By: #### C MP ####[facility] Elvnkhjwqz3373 [place] [phone]. Airam Tripathi Chloride [Moles/Vol] 99 mmol/L Normal 98-107 [facility] Comment on above: Performed By: #### C MP ####[facility] Dzghpfzlud5050 [place] [phone]. Airam Tripathi CO2 [Moles/Vol] 27.6 mmol/L Normal 21.0-32.0 [facility] Comment on above: Performed By: #### C MP ####[facility] Ykkglnkems3885 [place] [phone]. Airam Tripathi Creatinine [Mass/Vol] 2.01 mg/dL Critically high 0.55-1.02 [facility] Comment on above: Performed By: #### C MP ####[facility] Pvrlqbfhqn25[address] [place] [phone]. Airam Tripathi EGFR-AF MALAGASY 31 mL/min/1.73m2 Critically low >=60 [facility] Comment on above: Performed By: #### C MP ####[facility] Jymbufflxx70[address] [place] [phone]. Airam Tripathi EGFR-NON AF MALAGASY 25 mL/min/1.73m2 Critically low >=60 [facility] Comment on above: Performed By: #### C MP ####[facility] Auyfjjqdit6754 [place] [phone]. Airam Tripathi Globulin (S) [Mass/Vol] 3.2 g/dL Normal [facility] Comment on above: Performed By: #### C MP ####[facility] Mfoggiggld[address] [place] [phone]. Airam Tripathi Glucose [Mass/Vol] 158 mg/dL Critically high 74-106 [facility] Comment on above: Performed By: #### C MP ####[facility] Zcjeakijfe4[address] [place] [phone]. Airam Tripathi Potassium [Moles/Vol] 5.4 mmol/L Critically high 3.5-5.1 [facility] Comment on above: Performed By: #### C MP ####[facility] T[address]oypwpkt[address] [place] [address]Dr. Airam Tripathi Protein [Mass/Vol] 6.4 g/dL Normal 6.4-8.2 [facility] Comment on above: Performed By: #### C MP ####[facility] Bcpnotztxs94[address] [place] [address]Dr. Airam Tripathi Sodium [Moles/Vol] 134 mmol/L Critically low 136-145 [facility] Comment on above: Performed By: #### C MP ####[facility] Wmlwjwxfht6[address] [place] [address]Dr. Airam Tripathi Urea nitrogen [Mass/Vol] 52.0 mg/dL Critically high 7.0-18.0 [facility] Comment on above: Performed By: #### C MP ####[facility] Anrdkzfjao9[address] [place] [address]Dr. Airam Tripathi Urea nitrogen/Creatinine [Mass ratio] 25.9 mg/mg Normal [facility] Comment on above: Performed By: #### C MP ####[facility] Tzkckiuazo[address] [place] [address]Dr. Airam Deuce HPon 11-07-2022 [facility] Cardiology - [facility] Subjective Mabel Moser is a 62 y.o. year old female patient being seen for 2 week follow up per Sofie Bernard CNP. She says since she was last seen on 10/28, Dr. Santana increased her Entresto to 97-103mg bid, metoprolol to 50mg TID, and hydralazine to 100mg TID. Says she was in [facility] ED again last Monday with a [...] In the past she was admitted to [facility] in 2019 with fluid overload and responded [...] distension. Pal (more content not included)... Normal [facility] Office Visiton 11-07-2022 Follow-up visit [id number] Loren Moser 1960 F Date Provider Department Center 11/07/2022 BENJIE LERMA [facility] No family history on file Level of Service:[address] [place] OFFICE/OUTPATIENT ESTABLISHED MOD MDM 30-39 MIN Normal [facility] OSMOLALITYon 11-06-2022 Osmolality [Osmolality] 261 mosm/kg Critically low 275-295 [facility] Comment on above: Performed By: #### O SMO ####[facility] V[address]rmzzve[address] [place] [address]Dr. Airam Tripathi XR HIPS GUMARO 3_4V WO PELVISon 11-04-2022 XR HIPS GUMARO 3_4V WO PELVIS Normal [facility] XR KNEE LT 4V or >on 023 XR KNEE LT 4V or > Normal [facility] BNPon 11-03-2022 Natriuretic peptide B (Bld) [Mass/Vol] 1168.0 pg/mL Critically high <=900.0 [facility] Comment on above: Performed By: #### B ADMINISTRATIVE OFFICER, BMP ####[facility] Iejbjdumkb[address] [place] [address]Dr. Airam Tripathi CBC AUTO DIFFon 11-03-2022 BASO # 0.0 103/ul Normal 0.0-0.1 [facility] Comment on above: Performed By: #### C BC ####[facility] Kaxgicqbyx[address] [place] [address]Dr. Airam Tripathi Basophils/100 WBC (Bld) 0.3 % Normal 0.2-2.0 [facility] Comment on above: Performed By: #### C BC ####[facility] Prpbmzglhv4535 [place] [address]Dr. Airam Tripathi EO # 0.2 103/ul Normal 0.0-0.7 [facility] Comment on above: Performed By: #### C BC ####[facility] Uqzpfgpuia04[address] [place] [address]Dr. Airam Tripathi Eosinophils/100 WBC (Bld) 1.9 % Normal 0.9-7.0 [facility] Comment on above: Performed By: #### C BC ####[facility] Mjbaybxexv7152 [place] [address]Dr. Airam Tripathi Erythrocyte distribution width (RBC) [Ratio] 15.2 % Critically high 11.0-15.0 [facility] Comment on above: Performed By: #### C BC ####[facility] Lydhsqsayv5092 [place] [address]Dr. Airam Tripathi Hematocrit (Bld) [Volume fraction] 34.3 % Critically low 36.0-48.0 [facility] Comment on above: Performed By: #### C BC ####[facility] [address]xj[address] [place], [place] [address]DrKianna Airam Tripathi Hemoglobin (Bld) [Mass/Vol] 11.0 g/dL Critically low 12.0-16.0 [facility] Comment on above: Performed By: #### C BC ####[facility] T[address]cuj[address] [place], [place] [address]DrKianna Airam Tripathi IG # 0.06 10e3/ul Critically high 0.00-0.03 [facility] Comment on above: Performed By: #### C BC ####[facility] Mosguikbmu[address] [place], [place] [address]DrKianna Selenaneil Tripathi IG % 0.5 % Normal 0.0-0.5 [facility] Comment on above: Performed By: #### C BC ####[facility] Bveivwbfpx[address] [place], [place] [address]DrKianna Tripathi LYMPH # 2.3 103/ul Normal 1.2-3.8 [facility] Comment on above: Performed By: #### C BC ####[facility] [address]zeyewrcsp[address] [place], [place] [address]DrKianna Tripathi Lymphocytes/100 WBC (Bld) 20.4 % Critically low 20.5-60.0 [facility] Comment on above: Performed By: #### C BC ####[facility] Zvjkcwehkk[address] [place], [place] [address]DrKianna Tripathi MANUAL DIFF REQ NO Normal [facility] Comment on above: Performed By: #### C BC ####[facility] Bwwmptilvd5[address] [place] [phone]. Airam Deuce MCH (RBC) [Entitic mass] 28.7 pg Normal 26.7-34.0 [facility] Comment on above: Performed By: #### C BC ####[facility] Nlcmbtpdpx5144 [place] [address]Dr. Airam Deuce MCHC (RBC) [Mass/Vol] 32.1 g/dL Normal 29.9-35.2 [facility] Comment on above: Performed By: #### C BC ####[facility] Jmxdnqqqov8655 [place] [address]Dr. Airam Deuce MCV (RBC) [Entitic vol] 89.6 fL Normal 81.0-99.0 [facility] Comment on above: Performed By: #### C BC ####[facility] Lyatmnhgtb[address] [place], [place] [address]DrKianna Tripathi MONO # 0.9 103/ul Critically high 0.3-0.8 [facility] Comment on above: Performed By: #### C BC ####[facility] [address]zyrdsqgq[address] [place], [place] [address]Dr. Selenaneil Tripathi Monocytes/100 WBC (Bld) 8.3 % Normal 1.7-12.0 [facility] Comment on above: Performed By: #### C BC ####[facility] Flvcnsgcql[address] [place], [place] [address]DrKianna Airam Deuce NEUT # 7.8 103/ul Critically high 1.4-6.5 [facility] Comment on above: Performed By: #### C BC ####[facility] [address]pquhidmib[address] [place], [place] [address]DrKianna Tripathi Neutrophils/100 WBC (Bld) 68.6 % Normal 43.0-75.0 [facility] Comment on above: Performed By: #### C BC ####[facility] [address]rmfsgfnh[address] [place], [place] [address]DrKianna Tripathi Platelet mean volume (Bld) [Entitic vol] 8.9 fL Critically low 9.5-13.5 [facility] Comment on above: Performed By: #### C BC ####[facility] Ctkjggojph1697 [place] [phone]. Airam Tripathi PLT 323 103/ul Normal 150-450 [facility] Comment on above: Performed By: #### C BC ####[facility] Rtflqwlrvk6856 [place] [phone]. Airam Tripathi RBC 3.83 106/ul Critically low 4.20-5.40 [facility] Comment on above: Performed By: #### C BC ####[facility] Qjcxfclffr1277 [place] [phone]. Airam Tripathi WBC 11.4 103/ul Critically high 4.0-11.0 [facility] Comment on above: Performed By: #### C BC ####[facility] Gvhosxtccv[address] [place], [place] [address]Dr. Airam Tripathi BASO # 0.0 103/ul Normal 0.0-0.1 [facility] Comment on above: Performed By: #### C BC ####[facility] Zhujahbbie1802 [place] [phone]. Airam Deuce Basophils/100 WBC (Bld) 0.2 % Normal 0.2-2.0 [facility] Comment on above: Performed By: #### C BC ####[facility] Qxowikigfh3792 [place] [id number]. Airam Tripathi EO # 0.1 103/ul Normal 0.0-0.7 [facility] Comment on above: Performed By: #### C BC ####[facility] Lztwplrhpg7864 [place] [phone]. Airam Tripathi Eosinophils/100 WBC (Bld) 0.7 % Critically low 0.9-7.0 [facility] Comment on above: Performed By: #### C BC ####[facility] Dhfmsorzpx9374 [place] [phone]. Airam Tripathi Erythrocyte distribution width (RBC) [Ratio] 15.4 % Critically high 11.0-15.0 [facility] Comment on above: Performed By: #### C BC ####[facility] Lmgaflzmfl7300 [place] [address]DrKianna Airam Deuce Hematocrit (Bld) [Volume fraction] 33.6 % Critically low 36.0-48.0 [facility] Comment on above: Performed By: #### C BC ####[facility] Fbppkbdlsq5981 [place] [address]DrKianna Tripathi Hemoglobin (Bld) [Mass/Vol] 10.9 g/dL Critically low 12.0-16.0 [facility] Comment on above: Performed By: #### C BC ####[facility] Obisp[address]ndh[address] [place], [place] [address]DrKianna Tripathi IG # 0.04 10e3/ul Critically high 0.00-0.03 [facility] Comment on above: Performed By: #### C BC ####[facility] [address]xgphuekf[address] [place], [place] [address]DrKianna Tripathi IG % 0.5 % Normal 0.0-0.5 [facility] Comment on above: Performed By: #### C BC ####[facility] Wumyg[address]bbd[address] [place], [place] [address]DrKianna Tripathi LYMPH # 1.1 103/ul Critically low 1.2-3.8 [facility] Comment on above: Performed By: #### C BC ####[facility] Dvhaydinpb[address] [place], [place] [address]DrKianna Tripathi Lymphocytes/100 WBC (Bld) 13.3 % Critically low 20.5-60.0 [facility] Comment on above: Performed By: #### C BC ####[facility] Wqykoeeifr[address] [place], [place] [address]DrKianna Tripathi MANUAL DIFF REQ NO Normal [facility] Comment on above: Performed By: #### C BC ####[facility] H[address]bhrdnzw[address] [place], [place] [address]DrKianna Tripathi MCH (RBC) [Entitic mass] 29.1 pg Normal 26.7-34.0 [facility] Comment on above: Performed By: #### C BC ####[facility] Nasnwyddph7856 [place] [phone]. Airam Deuce MCHC (RBC) [Mass/Vol] 32.4 g/dL Normal 29.9-35.2 [facility] Comment on above: Performed By: #### C BC ####[facility] Ebzjkbleeh7865 [place] [phone] Tripathi MCV (RBC) [Entitic vol] 89.6 fL Normal 81.0-99.0 [facility] Comment on above: Performed By: #### C BC ####[facility] Dtkfncacoa[address] [place], [place] [address]DrKianna Tripathi MONO # 0.5 103/ul Normal 0.3-0.8 [facility] Comment on above: Performed By: #### C BC ####[facility] Lvyvrwekcp[address] [place], [place] [address]Dr. Airam Tripathi Monocytes/100 WBC (Bld) 6.4 % Normal 1.7-12.0 [facility] Comment on above: Performed By: #### C BC ####[facility] Kydhldsejf[address] [place], [place] [address]Dr. Airam Tripathi NEUT # 6.5 103/ul Normal 1.4-6.5 [facility] Comment on above: Performed By: #### C BC ####[facility] Lokqhjifbb[address] [place], [place] [address]Dr. Airam Tripathi Neutrophils/100 WBC (Bld) 78.9 % Critically high 43.0-75.0 [facility] Comment on above: Performed By: #### C BC ####[facility] Eupzeyneuh[address] [place], [place] [address]DrKianna Tripathi Platelet mean volume (Bld) [Entitic vol] 9.4 fL Critically low 9.5-13.5 [facility] Comment on above: Performed By: #### C BC ####[facility] Qfufvnwwek[address] [place], [place] [address]Dr. Airam Tripathi PLT 314 103/ul Normal 150-450 [facility] Comment on above: Performed By: #### C BC ####[facility] Wnqrvydhub2658 [place] [address]Dr. Selenaneil Deuce RBC 3.75 106/ul Critically low 4.20-5.40 [facility] Comment on above: Performed By: #### C BC ####[facility] Fsharxwezl8673 [place] [phone]. Airam Tripathi WBC 8.3 103/ul Normal 4.0-11.0 [facility] Comment on above: Performed By: #### C BC ####[facility] Dextyfnkty04[address] [place] [address]Dr. Ariam Tripathi CT HEAD WO CONon 11-03-2022 CT HEAD WO CON Normal [facility] PROF 14(COMP METB)on 023 Albumin [Mass/Vol] 3.2 g/dL Critically low 3.4-5.0 [facility] Comment on above: Performed By: #### C MP ####[facility] Tjecbivngd[address] [place] [address]Dr. Airam Tripathi Albumin/Globulin [Mass ratio] 0.9 {ratio} Normal [facility] Comment on above: Performed By: #### C MP ####[facility] Gueakuwysr7467 [place] [address]Dr. Airam Tripathi ALP [Catalytic activity/Vol] 109 U/L Normal 46-116 [facility] Comment on above: Performed By: #### C MP ####[facility] Ojcmpbefgy9112 [place] [address]Dr. Airam Tripathi ALT [Catalytic activity/Vol] 25 U/L Normal 14-59 [facility] Comment on above: Performed By: #### C MP ####[facility] Ibytvodwgh5092 [place] [address]Dr. Airam Tripathi Anion gap [Moles/Vol] 10.9 mmol/L Normal [facility] Comment on above: Performed By: #### C MP ####[facility] Iyeupavkmw8459 [place] [address]Dr. Airam Tirpathi AST [Catalytic activity/Vol] 24 U/L Normal 15-37 [facility] Comment on above: Performed By: #### C MP ####[facility] Bcbcvensgy4880 [place] [address]Dr. Airam Tripathi Bilirubin [Mass/Vol] 0.3 mg/dL Normal 0.2-1.0 [facility] Comment on above: Performed By: #### C MP ####[facility] Sesnihrgux[address] [place], [place] [address]Dr. Airam Tripathi Calcium [Mass/Vol] 8.6 mg/dL Normal 8.5-10.1 [facility] Comment on above: Performed By: #### C MP ####[facility] Herxvurmsr[address] [place], [place] [address]Dr. Airam Tripathi Chloride [Moles/Vol] 95 mmol/L Critically low 98-107 [facility] Comment on above: Performed By: #### C MP ####[facility] S[address]qsgghtq[address] [place], [place] [address]Dr. Airam Tripathi CO2 [Moles/Vol] 27.8 mmol/L Normal 21.0-32.0 [facility] Comment on above: Performed By: #### C MP ####[facility] Tyesaoqdgq[address] [place], [place] [address]Dr. Airam Tripathi Creatinine [Mass/Vol] 1.07 mg/dL Critically high 0.55-1.02 [facility] Comment on above: Performed By: #### C MP ####[facility] Wxavoyrdou[address] [place], [place] [address]Dr. Airam Tripathi EGFR-AF MALAGASY >60 Normal >=60 [facility] Comment on above: Performed By: #### C MP ####[facility] Higvtgzgds[address] [place], [place] [address]Dr. Airam Tripathi EGFR-NON AF MALAGASY 52 mL/min/1.73m2 Critically low >=60 [facility] Comment on above: Performed By: #### C MP ####[facility] Dwgarbgjwq[address] [place], [place] [address]Dr. Airam Tripathi Globulin (S) [Mass/Vol] 3.5 g/dL Normal [facility] Comment on above: Performed By: #### C MP ####[facility] [facility] [address] [place] [address]Dr. Airam Tripathi Glucose [Mass/Vol] 86 mg/dL Normal 74-106 [facility] Comment on above: Performed By: #### C MP ####[facility] [address] [place] [address]Dr. Airam Tripathi Potassium [Moles/Vol] 4.7 mmol/L Normal 3.5-5.1 [facility] Comment on above: Performed By: #### C MP ####[facility] [address] [place] [address]Dr. Airam Tripathi Protein [Mass/Vol] 6.7 g/dL Normal 6.4-8.2 [facility] Comment on above: Performed By: #### C MP ####[facility] [address] [place], [place] [address]Dr. Airam Tripathi Sodium [Moles/Vol] 129 mmol/L Critically low 136-145 [facility] Comment on above: Performed By: #### C MP ####[facility] [address] [place], [place] [address]Dr. Airam Tripathi Urea nitrogen [Mass/Vol] 19.0 mg/dL Critically high 7.0-18.0 [facility] Comment on above: Performed By: #### C MP ####[facility] [address] [place], [place] [address]Dr. Airam Tripathi Urea nitrogen/Creatinine [Mass ratio] 17.8 mg/mg Normal [facility] Comment on above: Performed By: #### C MP ####[facility] [address] [place], [place] [address]Dr. Airam Tripathi PROF CHEM 8 (BAS METB)on Anion gap [Moles/Vol] 9.0 mmol/L Normal [facility] Comment on above: Performed By: #### B ADMINISTRATIVE OFFICER, BMP ####[facility] [address] [place], [place] [address]Dr. Airam Tripathi Calcium [Mass/Vol] 8.5 mg/dL Normal 8.5-10.1 [facility] Comment on above: Performed By: #### B ADMINISTRATIVE OFFICER, BMP ####[facility] [address] [place], [place] [address]Dr. Airam Tripathi Chloride [Moles/Vol] 93 mmol/L Critically low 98-107 [facility] Comment on above: Performed By: #### B ADMINISTRATIVE OFFICER, BMP ####[facility] [address] [place], [place] [address]Dr. Airam Tripathi CO2 [Moles/Vol] 28.1 mmol/L Normal 21.0-32.0 [facility] Comment on above: Performed By: #### B ADMINISTRATIVE OFFICER, BMP ####[facility] [address] [place], [place] [address]Dr. Airam Tripathi Creatinine [Mass/Vol] 1.17 mg/dL Critically high 0.55-1.02 [facility] Comment on above: Performed By: #### B ADMINISTRATIVE OFFICER, BMP ####[facility] [address] [place], [place] [address]Dr. Airam Tripathi EGFR-AF MALAGASY 57 mL/min/1.73m2 Critically low >=60 [facility] Comment on above: Performed By: #### B ADMINISTRATIVE OFFICER, BMP ####[facility] [address] [place], [place] [address]Dr. Airam Tripathi EGFR-NON AF MALAGASY 47 mL/min/1.73m2 Critically low >=60 [facility] Comment on above: Performed By: #### B ADMINISTRATIVE OFFICER, BMP ####[facility] [address] [place], [place] [address]Dr. Airam Tripathi Glucose [Mass/Vol] 107 mg/dL Critically high 74-106 [facility] Comment on above: Performed By: #### B ADMINISTRATIVE OFFICER, BMP ####[facility] [address] [place], [place] [address]Dr. Airam Tripathi Potassium [Moles/Vol] 4.1 mmol/L Normal 3.5-5.1 [facility] Comment on above: Performed By: #### B ADMINISTRATIVE OFFICER, BMP ####[facility] [address] [place], [place] [address]Nk. Airam Tripathi Sodium [Moles/Vol] 126 mmol/L Critically low 136-145 [facility] Comment on above: Performed By: #### B ADMINISTRATIVE OFFICER, BMP ####[facility] [address] [place], [place] [address]Gg. Airam Tripathi Urea nitrogen [Mass/Vol] 20.0 mg/dL Critically high 7.0-18.0 [facility] Comment on above: Performed By: #### B ADMINISTRATIVE OFFICER, BMP ####[facility] [address] [place], [place] [address]Im. Airam Tripathi Urea nitrogen/Creatinine [Mass ratio] 17.1 mg/mg Normal [facility] Comment on above: Performed By: #### B ADMINISTRATIVE OFFICER, BMP ####[facility] [address] [place], [place] [address]Cb. Airam Tripathi XR CHEST 1 Von 11-03-2022 XR CHEST 1 V Normal [facility] Activated partial thrombopla stin time (aPTT) in platelet poor plasma by coagulation aOrdered By: Favian Helm on 10-28-2022 aPTT Coag (PPP) [Time] 31.7 s 25.1-36.[address] [facility] Alanine aminotransferase [En zymatic activity/volume] in Serum or PlasmaOrdered By: Favian Helm on 10-28-2022 ALT [Catalytic activity/Vol] 14 U/L 7-52 [facility] Albumin [Mass/volume] in Ser um or Plasma by Bromocresol green (BCG) dye binding methoOrdered By: Favian Helm on 10-28-2022 Albumin BCG dye [Mass/Vol] 3.6 g/dL 3.5-5.7 [facility] Alkaline phosphatase [Enzyma tic activity/volume] in Serum or PlasmaOrdered By: Favian Helm on 10-28-2022 ALP [Catalytic activity/Vol] 84 U/L 34-104 [facility] Aspartate aminotransferase [ Enzymatic activity/volume] in Serum or PlasmaOrdered By: Favian Helm on 10-28-2022 AST [Catalytic activity/Vol] 21 U/L 13-39 [facility] B-Type Natriuretic Peptideon 10-28-2022 Natriuretic peptide B (Bld) [Mass/Vol] 551.0 pg/mL High 5-100 [facility] Comment on above: Result Comment: PERF ORMED BY: [place] [address] PATHOLOGIST [employer] TEACHER TANNER GAVIN M.D. Performed By: #### M G, [id number], RETIC, FE and TIBC, JOSE, BMP #### [facility] [address] Basophils Auto (Bld) [#/Vol] Ordered By: Favian Helm on 10-28-2022 Basophils (Bld) [#/Vol] 0.0 10*3/uL 0.0-0.2 [facility] Basophils/100 WBC Auto (Bld) Ordered By: Favian Helm on 10-28-2022 Basophils/100 WBC (Bld) 0.4 % . [facility] Bilirubin.total [Mass/volume ] in Serum or PlasmaOrdered By: Favian Helm on 10-28-2022 Bilirubin [Mass/Vol] 0.3 mg/dL 0.3-1.[address] [facility] [address] head/brain wo conon 10-28 CT head/brain wo con [facility] [place] [address] [place] [address] CT Scan Report Signed Patient: Mabel Moser MR#: [id number] : 1960 Acct:[id number] Age/Sex: 62 / F ADM Date: 10/28/22 Loc: ER Room: Type: [facility] ER Attending Dr: Copies to: Favian Helm [...] Baljinder Ball M.D.10/28/2022 7:46 PM Dictation Location: [place] [address] Transcribed By: [facility] 10/28/221945 Dictated By: Baljinder Ball DO 10/28/221934 Signed By: 10/28/221945 Normal [facility] Calcium [Mass/volume] in Ser um or PlasmaOrdered By: Favian Helm on 10-28-2022 Calcium [Mass/Vol] 8.2 mg/dL 8.6-10.3 [facility] Carbon dioxide, total [Moles /volume] in Serum or PlasmaOrdered By: Favian Helm on 10-28-2022 CO2 [Moles/Vol] 25.7 mmol/L 21.0-31.0 [facility] Chloride [Moles/volume] in S andrea or PlasmaOrdered By: Favian Helm on 10-28-2022 Chloride [Moles/Vol] 98 mmol/L 98-107 [facility] Complete Blood Count Auto Di ffon 10-28-2022 Basophils (Bld) [#/Vol] 0.0 10*3/uL Normal 0.0-0.2 [facility] Comment on above: Result Comment: PERF ORMED BY: [place] [address] [place] [address] PATHOLOGIST [employer]IZATION TEACHER TANNER GAVIN M.D. Performed By: #### M G, [id number], RETIC, FE and TIBC, JOSE, BMP #### [facility] [address] Basophils/100 WBC (Bld) 0.4 % Normal . [facility] Comment on above: Performed By: #### M G, [id number], RETIC, FE and TIBC, JOSE, BMP #### [address] Eosinophils (Bld) [#/Vol] 0.1 10*3/uL Normal 0.0-0.45 [facility] Comment on above: Performed By: #### M G, [id number], RETIC, FE and TIBC, JOSE, BMP #### [address] Eosinophils/100 WBC (Bld) 1.0 % Normal . [facility] Comment on above: Performed By: #### M G, [id number], RETIC, FE and TIBC, JOSE, BMP #### [address] Erythrocyte distribution width (RBC) [Ratio] 16.5 % High 11.9-15.3 [facility] Comment on above: Performed By: #### M G, [id number], RETIC, FE and TIBC, JOSE, BMP #### [address] Hematocrit (Bld) [Volume fraction] 29.9 % Low 34.0-46.4 [facility] Comment on above: Performed By: #### M G, [id number], RETIC, FE and TIBC, JOSE, BMP #### [address] Hemoglobin (Bld) [Mass/Vol] 9.6 g/dL Low 11.8-15.4 [facility] Comment on above: Performed By: #### M G, [id number], RETIC, FE and TIBC, JOSE, BMP #### [address] Lymphocytes (Bld) [#/Vol] 0.8 10*3/uL Low 1.00-4.8 [facility] Comment on above: Performed By: #### M G, [id number], RETIC, FE and TIBC, JOSE, BMP #### [address] Lymphocytes/100 WBC (Bld) 12.8 % Normal . [facility] Comment on above: Performed By: #### M G, [id number], RETIC, FE and TIBC, JOSE, BMP #### [address] MCH (RBC) [Entitic mass] 28.3 pg Normal 24.7-34.3 [facility] Comment on above: Performed By: #### M G, [id number], RETIC, FE and TIBC, JOSE, BMP #### [address] MCV (RBC) [Entitic vol] 88.3 fL Normal 80-100 [facility] Comment on above: Performed By: #### M G, [id number], RETIC, FE and TIBC, JOSE, BMP #### [address] Mean Corpuscular HGB Conc 32.0 g/dL Normal 32.0-35.0 [facility] Comment on above: Performed By: #### Nadya G, [id number], RETIC, FE and TIBC, JOSE, BMP #### [address] Monocytes (Bld) [#/Vol] 0.2 10*3/uL Normal 0.0-0.8 [facility] Comment on above: Performed By: #### M G, [id number], RETIC, FE and TIBC, JOSE, BMP #### [address] Monocytes/100 WBC (Bld) 17.29 % Normal 0.00-20.00 [facility] Comment on above: Performed By: #### M G, [id number], RETIC, FE and TIBC, JOSE, BMP #### [address] Monocytes/100 WBC (Bld) 2.5 % Normal . [facility] Comment on above: Performed By: #### M G, [id number], RETIC, FE and TIBC, JOSE, BMP #### [address] Neutrophils (Bld) [#/Vol] 5.5 10*3/uL Normal 1.8-7.7 [facility] Comment on above: Performed By: #### M G, [id number], RETIC, FE and TIBC, JOSE, BMP #### [address] Neutrophils/100 WBC (Bld) 83.3 % Normal . [facility] Comment on above: Performed By: #### M G, [id number], RETIC, FE and TIBC, JOSE, BMP #### [address] NRBC% 0.0 /100{WBC} Normal 0-0.5 [facility] Comment on above: Performed By: #### M G, [id number], RETIC, FE and TIBC, JOSE, BMP #### [address] Platelet mean volume (Bld) [Entitic vol] 7.3 fL Normal 6.3-10.7 [facility] Comment on above: Performed By: #### M G, [id number], RETIC, FE and TIBC, JOSE, BMP #### [place] [address] [place] Platelets (Bld) [#/Vol] 260 10*3/uL Normal 150-450 [facility] Comment on above: Performed By: #### M G, [id number], RETIC, FE and TIBC, JOSE, BMP #### [place] [address] [place] RBC (Bld) [#/Vol] 3.38 10*6/uL Low 3.60-5.00 [facility] Comment on above: Performed By: #### M G, [id number], RETIC, FE and TIBC, JOSE, BMP #### [address] WBC (Bld) [#/Vol] 6.6 10*3/uL Normal 3.8-11.6 [facility] Comment on above: Performed By: #### M G, [id number], RETIC, FE and TIBC, JOSE, BMP #### [address] Comprehensive Metabolic Pane elena 10-28-2022 Albumin [Mass/Vol] 3.6 g/dL Normal 3.5-5.7 [facility] Comment on above: Performed By: #### M G, [id number], RETIC, FE and TIBC, JOSE, BMP #### [address] Albumin/Globulin [Mass ratio] 1.6 {ratio} Normal [facility] Comment on above: Performed By: #### M G, [id number], RETIC, FE and TIBC, JOSE, BMP #### [address] ALP [Catalytic activity/Vol] 84 U/L Normal 34-104 [facility] Comment on above: Performed By: #### M G, [id number], RETIC, FE and TIBC, JOSE, BMP #### [address] ALT [Catalytic activity/Vol] 14 U/L Normal 7-52 [facility] Comment on above: Performed By: #### M G, [id number], RETIC, FE and TIBC, JOSE, BMP #### [address] Anion gap [Moles/Vol] 10.0 mmol/L Normal 6.0-15.[address] [facility] Comment on above: Performed By: #### M G, [id number], RETIC, FE and TIBC, JOSE, BMP #### [address] AST [Catalytic activity/Vol] 21 U/L Normal 13-39 [facility] Comment on above: Performed By: #### M G, [id number], RETIC, FE and TIBC, JOSE, BMP #### [facility] [address] [place] [address] Bilirubin [Mass/Vol] 0.3 mg/dL Normal 0.3-1.0 [facility] Comment on above: Performed By: #### M G, [id number], RETIC, FE and TIBC, JOSE, BMP #### [address] Calcium [Mass/Vol] 8.2 mg/dL Low 8.6-10.3 [facility] Comment on above: Performed By: #### M G, [id number], RETIC, FE and TIBC, JOSE, BMP #### [address] Chloride [Moles/Vol] 98 mmol/L Normal 98-107 [facility] Comment on above: Performed By: #### M G, [id number], RETIC, FE and TIBC, JOSE, BMP #### [facility] [address] [place] [address] CO2 [Moles/Vol] 25.7 mmol/L Normal 21.0-31.0 [facility] Comment on above: Performed By: #### M G, [id number], RETIC, FE and TIBC, JOSE, BMP #### [facility] [address] [place] [address] Creatinine [Mass/Vol] 1.23 mg/dL High 0.60-1.20 [facility] Comment on above: Performed By: #### M G, [id number], RETIC, FE and TIBC, JOSE, BMP #### [facility] [address] [place] [address] [place] Creatinine Clr Calc Pharmacy 48.79 [facility] Comment on above: Performed By: #### M G, [id number], RETIC, FE and TIBC, JOSE, BMP #### [facility] [address] [place] [address] [place] GFR/1.73 sq M.predicted MDRD (S/P/Bld) [Vol rate/Area] 50.309 mL/min/{1.73_m2} [facility] Comment on above: Performed By: #### M G, [id number], RETIC, FE and TIBC, JOSE, BMP #### [facility] [address] Globulin (S) [Mass/Vol] 2.3 g/dL [facility] Comment on above: Performed By: #### M G, [id number], RETIC, FE and TIBC, JOSE, BMP #### [address] Glucose [Mass/Vol] 98 mg/dL Normal 70-100 [facility] Comment on above: Result Comment: [facility] Glucose Reference Range is dependent on time and content of last meal. Glucose of more than 200 mg/dL in a nonstressed, ambulatory subject supports the diagnosis of Diabetes Mellitus. ADA recommended reference range Performed By: #### M G, [id number], RETIC, FE and TIBC, JOSE, BMP #### [facility] [address] [place] [address] Potassium [Moles/Vol] 4.7 mmol/L Normal 3.5-5.1 [facility] Comment on above: Performed By: #### M G, [id number], RETIC, FE and TIBC, JOSE, BMP #### [facility] [address] [place] [address] Protein [Mass/Vol] 5.9 g/dL Low 6.4-8.9 [facility] Comment on above: Performed By: #### M G, [id number], RETIC, FE and TIBC, JOSE, BMP #### [facility] [address] [place] [address] Sodium [Moles/Vol] 129 mmol/L Low 136-145 [facility] Comment on above: Performed By: #### M G, [id number], RETIC, FE and TIBC, JOSE, BMP #### [address] [place] [address] [place] Urea nitrogen [Mass/Vol] 36 mg/dL High 7-25 [facility] Comment on above: Performed By: #### M G, [id number], RETIC, FE and TIBC, JOSE, BMP #### [facility] [address] [place] [address] [place] Creatine Kinaseon 10-28-2022 CK [Catalytic activity/Vol] 45 U/L Normal [facility] Comment on above: Performed By: #### M G, [id number], RETIC, FE and TIBC, JOSE, BMP #### [facility] [address] [place] [id number] [place] Creatine kinase [Enzymatic a ctivity/volume] in Serum or PlasmaOrdered By: Favian Helm on 10-28-2022 CK [Catalytic activity/Vol] 45 U/L [facility] Creatinine [Mass/volume] in Serum or PlasmaOrdered By: Favian Helm on 10-28-2022 Creatinine [Mass/Vol] 1.23 mg/dL 0.60-1.20 [facility] ECG 12 lead ECGon 10-28-2022 ECG 12 lead ECG [facility] [place] [address] [place] [address] Electrocardiograph Report Signed Patient: Mabel Moser MR#: [id number] : 1960 Acct:[id number] Age/Sex: 62 / F ADM Date: 10/28/22 Loc: ER Room: Type: [facility] ER Attending Dr: Ordering Provider: Favian Helm [...] normal variant Confirmed by Chris MAURO DO ([id number]) on 10/28/2022 8:40:44 PM Referred By: Electronically Signed By:Chris MAURO DO Transcribed By: MUS Signed By Chris Mauro, 0 10/28/222039 Normal [facility] Eosinophils Auto (Bld) [#/Vo l]Ordered By: Favian Helm on 10-28-2022 Eosinophils (Bld) [#/Vol] 0.1 10*3/uL 0.0-0.45 [facility] Eosinophils/100 WBC Auto (Bl d)Ordered By: Favian Helm on 10-28-2022 Eosinophils/100 WBC (Bld) 1.0 % . [facility] Erythrocyte distribution wid th Auto (RBC) [Ratio]Ordered By: Favian Helm on 10-28-2022 Erythrocyte distribution width (RBC) [Ratio] 16.5 % 11.9-15.3 [facility] Globulin Calc (S) [Mass/Vol] Ordered By: Favian Helm 10-28-2022 Globulin (S) [Mass/Vol] 2.3 g/dL [facility] Glucose [Mass/volume] in Ser um or PlasmaOrdered By: Favian Helm on 10-28-2022 Glucose [Mass/Vol] 98 mg/dL 70-100 [facility] Comment on above: ADA recommended refe rence rangeRandom Glucose Reference Range is dependent on time and content of last meal. Glucose of more than 200 mg/dL in a nonstressed, ambulatory subject supports the diagnosis of Diabetes Mellitus. Hematocrit Auto (Bld) [Volum e fraction]Ordered By: Favian Helm on 10-28-2022 Hematocrit (Bld) [Volume fraction] 29.9 % 34.0-46.4 [facility] Hemoglobin [Mass/volume] in BloodOrdered By: Favian Helm 10-28-2022 Hemoglobin (Bld) [Mass/Vol] 9.6 g/dL 11.8-15.4 [facility] Laboratory - CoagulationOrde red By: Favian Helm 10-28-2022 PT Coag (PPP) [Time] 11.0 s 9.0-12.9 [facility] Leukocytes [#/volume] correc nicol for nucleated erythrocytes in Blood by Automated counOrdered By: Favian Helm 10-28-2022 WBC corrected for nucl RBC Auto (Bld) [#/Vol] 6.6 10*3/uL 3.8-11.6 [facility] Lymphocytes Auto (Bld) [#/Vo l]Ordered By: Favian Helm on 10-28-2022 Lymphocytes (Bld) [#/Vol] 0.8 10*3/uL 1.00-4.8 [facility] Lymphocytes/100 WBC Auto (Bl d)Ordered By: Favian Helm on 10-28-2022 Lymphocytes/100 WBC (Bld) 12.8 % . [facility] MCH Auto (RBC) [Entitic mass ]Ordered By: Favian Helm on 10-28-2022 MCH (RBC) [Entitic mass] 28.3 pg 24.7-34.3 [facility] MCHC Auto (RBC) [Mass/Vol]Or dered By: Favian Helm on 10-28-2022 MCHC (RBC) [Mass/Vol] 32.0 g/dL 32.0-35.0 [facility] MCV Auto (RBC) [Entitic vol] Ordered By: Favian Helm on 10-28-2022 MCV (RBC) [Entitic vol] 88.3 fL 80-100 [facility] Magnesiumon 10-28-2022 Magnesium [Mass/Vol] 1.9 mg/dL Normal 1.9-2.7 [facility] Comment on above: Result Comment: PERF ORMED BY: [place] [address] PATHOLOGIST [employer]ICAN[employer]ATION TEACHER TANNER GAVIN M.D. Performed By: #### M G, [id number], RETIC, FE and TIBC, JOSE, BMP #### [facility] [address] Magnesium [Mass/volume] in S andrea or PlasmaOrdered By: Favian Helm on 10-28-2022 Magnesium [Mass/Vol] 1.9 mg/dL 1.9-2.7 [facility] Monocyte distribution width [Entitic volume] in Blood by AutomatedOrdered By: Favian Helm on 10-28-2022 Monocyte distribution width Auto (Bld) [Entitic vol] 17.29 % 0.00-20.00 [facility] Monocytes Auto (Bld) [#/Vol] Ordered By: Favian Helm on 10-28-2022 Monocytes (Bld) [#/Vol] 0.2 10*3/uL 0.0-0.8 [facility] Monocytes/100 WBC Auto (Bld) Ordered By: Favian Helm on 10-28-2022 Monocytes/100 WBC (Bld) 2.5 % . [facility] Natriuretic peptide B [Mass/ Vol]Ordered By: Favian Helm on 10-28-2022 Natriuretic peptide B (Bld) [Mass/Vol] 551.0 pg/mL 5-100 [facility] Neutrophils Auto (Bld) [#/Vo l]Ordered By: Favian Helm on 10-28-2022 Neutrophils (Bld) [#/Vol] 5.5 10*3/uL 1.8-7.7 [facility] Neutrophils/100 WBC Auto (Bl d)Ordered By: Favian Helm on 10-28-2022 Neutrophils/100 WBC (Bld) 83.3 % . [facility] No Panel InformationOrdered By: Favian Helm on 10-28-2022 Estimated GFR (CKD-EPI) 50.309 mL/Min [facility] Creatinine Clearance (Chem 48.79 [facility] Nucleated erythrocytes [Pres ence] in Blood by Automated countOrdered By: Favian Helm on 10-28-2022 Nucleated RBC Auto Ql (Bld) 0.0 /100{WBC} 0-0.5 [facility] Office Visiton 10-28-2022 Follow-up visit [id number] Loren Moser 1960 F Date Provider Department Center 10/28/2022 120-JOANA, RHIANNON [facility] No family history on file Level of Service:[address] [place] OFFICE/OUTPATIENT ESTABLISHED MOD MDM 30-39 MIN Normal [facility] Partial Thromboplastin Timeo n 10-28-2022 aPTT Coag (Bld) [Time] 31.7 s Normal 25.1-36.[address] [facility] Comment on above: Result Comment: PERF ORMED BY: [place] [address] [place] [address] PATHOLOGIST [employer]ATION TEACHER TANNER GAVIN M.D. Performed By: #### M G, [id number], RETIC, FE and TIBC, JOSE, BMP #### [facility] [address] Platelet mean volume Auto (B ld) [Entitic vol]Ordered By: Favian Helm on 10-28-2022 Platelet mean volume (Bld) [Entitic vol] 7.3 fL 6.3-10.7 [facility] Platelet poor plasma interna tional normalized ratio (INR) by coagulation assay (relatOrdered By: Favian Helm on 10-28-2022 INR Coag (PPP) [Relative time] 1.0 {INR} [facility] Comment on above: INR Therapeutic Rang e [...] [#/Vol] Ordered By: Favian Helm on 10-28-2022 Platelets (Bld) [#/Vol] 260 10*3/uL 150-450 [facility] Potassium [Moles/volume] in Serum or PlasmaOrdered By: Favian Helm on 10-28-2022 Potassium [Moles/Vol] 4.7 mmol/L 3.5-5.1 [facility] Protein [Mass/volume] in Ser um or PlasmaOrdered By: Favian Helm on 10-28-2022 Protein [Mass/Vol] 5.9 g/dL 6.4-8.9 [facility] Prothrombin Time INRon 10-28 INR Coag (PPP) [Relative time] 1.0 {INR} Normal [facility] Comment on above: Result Comment: INR Therapeutic [...] valves: 3 - 4.5 Performed By: #### M G, [id number], RETIC, FE and TIBC, JOSE, BMP #### [facility] [address] PT Coag (PPP) [Time] 11.0 s Normal 9.0-12.9 [facility] Comment on above: Performed By: #### M G, [id number], RETIC, FE and TIBC, JOSE, BMP #### [facility] [address] RBC Auto (Bld) [#/Vol]Ordere d By: Favian Helm on 10-28-2022 RBC (Bld) [#/Vol] 3.38 10*6/uL 3.60-5.00 [facility] Serum or plasma albumin/glob ulin mass ratioOrdered By: Favian Helm on 10-28-2022 Albumin/Globulin [Mass ratio] 1.6 {ratio} [facility] Serum or plasma anion gap de terminationOrdered By: Favian Helm on 10-28-2022 Anion gap [Moles/Vol] 10.0 mmol/L 6.0-15.[address] [facility] Sodium [Moles/volume] in Ser um or PlasmaOrdered By: Favian Helm on 10-28-2022 Sodium [Moles/Vol] 129 mmol/L 136-145 [facility] Troponin I High Sensitivityo n 10-28-2022 Troponin I High Sensitivity 5.8 pg/mL Normal 0.0-15.0 [facility] Comment on above: Result Comment: PERF ORMED BY: [place] [address] PATHOLOGIST [employer] TEACHER TANNER GAVIN M.D. Performed By: #### M G, [id number], RETIC, FE and TIBC, JOSE, BMP #### [address] Troponin I.cardiac [Mass/vol ume] in Serum or Plasma by Detection limit <= 0.01 ng/Ordered By: Favian Helm on 10-28-2022 Troponin I.cardiac DL <= 0.01 ng/mL [Mass/Vol] 5.8 pg/mL 0.0-15.0 [facility] Urea nitrogen [Mass/volume] in Serum or PlasmaOrdered By: Favian Helm on 10-28-2022 Urea nitrogen [Mass/Vol] 36 mg/dL 7-25 [facility] WBC Auto (Bld) [#/Vol]Ordere d By: Favian Helm on 10-28-2022 WBC (Bld) [#/Vol] 6.6 10*3/uL 3.8-11.6 [facility] XR chest 2V*on 10-28-2022 XR chest 2V* [facility] [place] [address] XRay Report Signed Patient: Mabel Moser MR#: [id number] : 1960 Acct:[id number] Age/Sex: 62 / F ADM Date: 10/28/22 Loc: ER Room: Type: [facility] ER Attending Dr: Copies to: Favian Helm PA-C Ordering Provider: Favian Helm PA-C Date of Service: 10/28/22 XR/XR chest 2V*: Shortness of Breath/Dyspnea Plain film chest 2 view HISTORY: Fluid overload. Shortness of breath. Headache. COMPARISON: 08/31/2018 FINDINGS: SUPPORT DEVICES: None POSTSURGICAL CHANGES: Right Qvgvni-x-Uulo intact with tip overlying the distal SVC. HEART: Within normal limits PULMONARY RAI: Within normal limits MEDIASTINUM: Unremarkable LUNGS AND PLEURA: No acute lung process, pleural effusion or pneumothorax identified. BONY STRUCTURES: Intact ADDITIONAL FINDINGS None XR/XR chest 2V* IMPRESSION: No acute process. Impression dictated by: Baljinder Ball M.D.10/28/2022 7:50 PM Dictation Location: [place] [address] Transcribed By: [facility] 10/28/221949 Dictated By: Baljinder Ball DO 10/28/221945 Signed By: 10/28/221949 [facility] BNPon 10-26-2022 Natriuretic peptide B (Bld) [Mass/Vol] 2657.0 pg/mL Critically high <=900.0 [facility] Comment on above: Performed By: #### C MP, BNP ####[facility] Dfwpchitev[address] [place], [place] [address]Dr. Airam Tripathi CBC AUTO DIFFon 10-26-2022 BASO # 0.0 103/ul Normal 0.0-0.1 [facility] Comment on above: Performed By: #### C BC ####[facility] Uhlscrntsp[address] [place], [place] [address]Dr. Airam Tripathi Basophils/100 WBC (Bld) 0.5 % Normal 0.2-2.0 [facility] Comment on above: Performed By: #### C BC ####[facility] Vborhsoxdi[address] [place], [place] [address]Dr. Airam Tripathi EO # 0.3 103/ul Normal 0.0-0.7 [facility] Comment on above: Performed By: #### C BC ####[facility] Fazoflggjo[address] [place], [place] [address]Dr. Airam Tripathi Eosinophils/100 WBC (Bld) 4.8 % Normal 0.9-7.0 [facility] Comment on above: Performed By: #### C BC ####[facility] Rzvsbxecyi[address] [place], [place] [address]Dr. Airam Tirpathi Erythrocyte distribution width (RBC) [Ratio] 15.5 % Critically high 11.0-15.0 [facility] Comment on above: Performed By: #### C BC ####[facility] Qghasjgria[address] [place], [place] [address]Dr. Airam Tripathi Hematocrit (Bld) [Volume fraction] 27.7 % Critically low 36.0-48.0 [facility] Comment on above: Performed By: #### C BC ####[facility] S[address]akunbx[address] [place], [place] [address]Dr. Airam Tripathi Hemoglobin (Bld) [Mass/Vol] 8.8 g/dL Critically low 12.0-16.0 [facility] Comment on above: Performed By: #### C BC ####[facility] [address]axcvn[address] [place] [address]Dr. Airam Tripathi IG # 0.03 10e3/ul Normal 0.00-0.03 [facility] Comment on above: Performed By: #### C BC ####[facility] Jhyarlznzg44[address] [place] [id number]. Airam Tripathi IG % 0.5 % Normal 0.0-0.5 [facility] Comment on above: Performed By: #### C BC ####[facility] [address]gegssc70[address] [place] [address]Dr. Airam Tripathi LYMPH # 1.6 103/ul Normal 1.2-3.8 [facility] Comment on above: Performed By: #### C BC ####[facility] Haywywarud4471 [place] [address]DrKianna Tripathi Lymphocytes/100 WBC (Bld) 25.5 % Normal 20.5-60.0 [facility] Comment on above: Performed By: #### C BC ####[facility] Xengkdojmw[address] [place] [address]DrKianna Tripathi MANUAL DIFF REQ NO Normal [facility] Comment on above: Performed By: #### C BC ####[facility] Ohzaouljqo3[address] [place] [address]Dr. Airam Tripathi MCH (RBC) [Entitic mass] 29.0 pg Normal 26.7-34.0 [facility] Comment on above: Performed By: #### C BC ####[facility] [address]ylqwtkpqa[address] [place], [place] [address]Dr. Airam Tripathi MCHC (RBC) [Mass/Vol] 31.8 g/dL Normal 29.9-35.2 [facility] Comment on above: Performed By: #### C BC ####[facility] Pgpgjyyoov16[address] [place] [address]Dr. Airam Tripathi MCV (RBC) [Entitic vol] 91.4 fL Normal 81.0-99.0 [facility] Comment on above: Performed By: #### C BC ####[facility] Btgpalvged[address] [place] [id number]. Airam Tripathi MONO # 0.5 103/ul Normal 0.3-0.8 [facility] Comment on above: Performed By: #### C BC ####[facility] Jsrydqajuz[address] [place] [id number]. Airam Tripathi Monocytes/100 WBC (Bld) 7.5 % Normal 1.7-12.0 [facility] Comment on above: Performed By: #### C BC ####[facility] Csozhjlulr8497 [place] [id number]. Airam Tripathi NEUT # 3.9 103/ul Normal 1.4-6.5 [facility] Comment on above: Performed By: #### C BC ####[facility] Kdgzhzlaks2806 [place] [address]Dr. Airam Tripathi Neutrophils/100 WBC (Bld) 61.2 % Normal 43.0-75.0 [facility] Comment on above: Performed By: #### C BC ####[facility] Jqxiaopynp0573 [place] [id number]. Airam Tripathi Platelet mean volume (Bld) [Entitic vol] 9.4 fL Critically low 9.5-13.5 [facility] Comment on above: Performed By: #### C BC ####[facility] Yiqvtxmxme[address]25 [place] [address]Dr. Airam Tripathi PLT 247 103/ul Normal 150-450 [facility] Comment on above: Performed By: #### C BC ####[facility] Vrfnidefeo[address] [place], [place] [id number]. Airam Tripathi RBC 3.03 106/ul Critically low 4.20-5.40 [facility] Comment on above: Performed By: #### C BC ####[facility] Ndopmxjdsw6[address] [place] [phone]. Airam Tripathi WBC 6.4 103/ul Normal 4.0-11.0 [facility] Comment on above: Performed By: #### C BC ####[facility] Dcfhledusg7529 [place] [address]Dr. Airam Tripathi PROF 14(COMP METB)on 023 Albumin [Mass/Vol] 2.5 g/dL Critically low 3.4-5.0 [facility] Comment on above: Performed By: #### C MP, BNP ####[facility] Bzfojfynse63[address] [place] [address]Dr. Airam Tripathi Albumin/Globulin [Mass ratio] 0.9 {ratio} Normal [facility] Comment on above: Performed By: #### C MP, BNP ####[facility] Eoulisuwlf9654 [place] [address]Dr. Airam Tripathi ALP [Catalytic activity/Vol] 108 U/L Normal 46-116 [facility] Comment on above: Performed By: #### C MP, BNP ####[facility] Gdjvkbemou9208 [place] [address]Dr. Airam Tripathi ALT [Catalytic activity/Vol] 20 U/L Normal 14-59 [facility] Comment on above: Performed By: #### C MP, BNP ####[facility] Nlodcmlhxe0517 [place] [address]Dr. Airam Tripathi Anion gap [Moles/Vol] 10.4 mmol/L Normal [facility] Comment on above: Performed By: #### C MP, BNP ####[facility] Cpjewvpfxi0652 [place] [address]Dr. Airam Tripathi AST [Catalytic activity/Vol] 20 U/L Normal 15-37 [facility] Comment on above: Performed By: #### C MP, BNP ####[facility] Vzaqgiwhjt7183 [place] [address]Dr. Airam Tripathi Bilirubin [Mass/Vol] 0.2 mg/dL Normal 0.2-1.0 [facility] Comment on above: Performed By: #### C MP, BNP ####[facility] Hvimjzzaam0419 [place] [address]Dr. Airam Tripathi Calcium [Mass/Vol] 8.0 mg/dL Critically low 8.5-10.1 [facility] Comment on above: Performed By: #### C MP, BNP ####[facility] Vudgqziltm[address] [place], [place] [address]Dr. Airam Tripathi Chloride [Moles/Vol] 100 mmol/L Normal 98-107 [facility] Comment on above: Performed By: #### C MP, BNP ####[facility] Keofuupqra[address] [place], [place] [address]Dr. Airam Tripathi CO2 [Moles/Vol] 28.6 mmol/L Normal 21.0-32.0 [facility] Comment on above: Performed By: #### C MP, BNP ####[facility] Pctygmshht[address] [place], [place] [address]Dr. Airam Tripathi Creatinine [Mass/Vol] 1.66 mg/dL Critically high 0.55-1.02 [facility] Comment on above: Performed By: #### C MP, BNP ####[facility] Roqhfjvaac[address] [place], [place] [address]Dr. Airam Tripathi EGFR-AF MALAGASY 38 mL/min/1.73m2 Critically low >=60 [facility] Comment on above: Performed By: #### C MP, BNP ####[facility] Oqdriepjyd[address] [place], [place] [address]Dr. Airam Tripathi EGFR-NON AF MALAGASY 32 mL/min/1.73m2 Critically low >=60 [facility] Comment on above: Performed By: #### C MP, BNP ####[facility] Zmwohkvjos[address] [place], [place] [address]Dr. Airam Tripathi Globulin (S) [Mass/Vol] 2.8 g/dL Normal [facility] Comment on above: Performed By: #### C MP, BNP ####[facility] Jssgnqdmwc[address] [place], [place] [address]Dr. Airam Deuce Glucose [Mass/Vol] 102 mg/dL Normal 74-106 [facility] Comment on above: Performed By: #### C MP, BNP ####[facility] Vfmqlasnwq[address] [place], [place] [address]Dr. Airam Tripathi Potassium [Moles/Vol] 5.0 mmol/L Normal 3.5-5.1 [facility] Comment on above: Performed By: #### C MP, BNP ####[facility] Zlgzmmtpqd[address] [place], [place] [address]Dr. Airam Tripathi Protein [Mass/Vol] 5.3 g/dL Critically low 6.4-8.2 [facility] Comment on above: Performed By: #### C MP, BNP ####[facility] Bokavhpqln[address] [place], [place] [address]Dr. Airam Tripathi Sodium [Moles/Vol] 134 mmol/L Critically low 136-145 [facility] Comment on above: Performed By: #### C MP, BNP ####[facility] Ebvnapwagq[address] [place], [place] [address]Dr. Selenaneil Tripathi Urea nitrogen [Mass/Vol] 45.0 mg/dL Critically high 7.0-18.0 [facility] Comment on above: Performed By: #### C MP, BNP ####[facility] Zolsqtoxfk[address] [place], [place] [address]Dr. Airam Tripathi Urea nitrogen/Creatinine [Mass ratio] 27.1 mg/mg Normal [facility] Comment on above: Performed By: #### C MP, BNP ####[facility] Tiycrwptid[address] [place], [place] [address]Dr. Airam Tripathi BNPon 10-25-2022 Natriuretic peptide B (Bld) [Mass/Vol] 4569.0 pg/mL Critically high <=900.0 [facility] Comment on above: Performed By: #### C MP, BNP ####[facility] Adxaofaouk[address] [place], [place] [address]Dr. Airam Tripathi CBC AUTO DIFFon 10-25-2022 BASO # 0.0 103/ul Normal 0.0-0.1 [facility] Comment on above: Performed By: #### C BC ####[facility] Icfskpccas[address] [place], [place] [address]Dr. Airam Deuce Basophils/100 WBC (Bld) 0.5 % Normal 0.2-2.0 [facility] Comment on above: Performed By: #### C BC ####[facility] Lqsveonetp3035 [place] [id number]. Airam Tripathi EO # 0.3 103/ul Normal 0.0-0.7 [facility] Comment on above: Performed By: #### C BC ####[facility] Fjfuzsfauu[address] [place], [place] [address]Dr. Airam Tripathi Eosinophils/100 WBC (Bld) 5.6 % Normal 0.9-7.0 [facility] Comment on above: Performed By: #### C BC ####[facility] Odotfwfghs[address] [place], [place] [address]Dr. Airam Tripathi Erythrocyte distribution width (RBC) [Ratio] 15.7 % Critically high 11.0-15.0 [facility] Comment on above: Performed By: #### C BC ####[facility] [address]aaqvaphn[address] [place], [place] [address]Dr. Airam Tripathi Hematocrit (Bld) [Volume fraction] 30.1 % Critically low 36.0-48.0 [facility] Comment on above: Performed By: #### C BC ####[facility] Uuhhdpveaq[address] [place], [place] [address]Dr. Airam Tripathi Hemoglobin (Bld) [Mass/Vol] 9.2 g/dL Critically low 12.0-16.0 [facility] Comment on above: Performed By: #### C BC ####[facility] Vknbomyivd[address] [place], [place] [address]Dr. Airam Tripathi IG # 0.03 10e3/ul Normal 0.00-0.03 [facility] Comment on above: Performed By: #### C BC ####[facility] Pvzveylsic[address] [place], [place] [address]Dr. Airam Tripathi IG % 0.5 % Normal 0.0-0.5 [facility] Comment on above: Performed By: #### C BC ####[facility] Xaijsipqut[address] [place], [place] [address]Dr. Selenaneil Tripathi LYMPH # 1.7 103/ul Normal 1.2-3.8 [facility] Comment on above: Performed By: #### C BC ####[facility] Vzhztcgljr7[address] [place] [phone]. Selenaneil Tripathi Lymphocytes/100 WBC (Bld) 28.9 % Normal 20.5-60.0 [facility] Comment on above: Performed By: #### C BC ####[facility] Fmevdbcajl0335 [place] [id number]. Airam Tripathi MANUAL DIFF REQ NO Normal [facility] Comment on above: Performed By: #### C BC ####[facility] Arkqzltrvi3626 [place] [phone]. Airam Tripathi MCH (RBC) [Entitic mass] 28.4 pg Normal 26.7-34.0 [facility] Comment on above: Performed By: #### C BC ####[facility] Mljgmzaubw[address] [place], [place] [address]Dr. Airam Tripathi MCHC (RBC) [Mass/Vol] 30.6 g/dL Normal 29.9-35.2 [facility] Comment on above: Performed By: #### C BC ####[facility] Ljpkajiwmk[address] [place], [place] [address]Dr. Airam Tripathi MCV (RBC) [Entitic vol] 92.9 fL Normal 81.0-99.0 [facility] Comment on above: Performed By: #### C BC ####[facility] Eurowqsbcm[address] [place], [place] [address]Dr. Airam Tripathi MONO # 0.5 103/ul Normal 0.3-0.8 [facility] Comment on above: Performed By: #### C BC ####[facility] Cjgztukoou[address] [place], [place] [address]Dr. Airam Tripathi Monocytes/100 WBC (Bld) 8.5 % Normal 1.7-12.0 [facility] Comment on above: Performed By: #### C BC ####[facility] [address]fsuwlrr[address] [place], [place] [address]Dr. Airam Tripathi NEUT # 3.2 103/ul Normal 1.4-6.5 [facility] Comment on above: Performed By: #### C BC ####[facility] Ojamtdnmjc5570 [place] [phone]. Airam Tripathi Neutrophils/100 WBC (Bld) 56.0 % Normal 43.0-75.0 [facility] Comment on above: Performed By: #### C BC ####[facility] Yebdujzzkw8767 [place] [phone]. Airam Tripathi Platelet mean volume (Bld) [Entitic vol] 9.4 fL Critically low 9.5-13.5 [facility] Comment on above: Performed By: #### C BC ####[facility] Avgxtdzkhu350[address] [place] [address]Dr. Airam Tripathi PLT 272 103/ul Normal 150-450 [facility] Comment on above: Performed By: #### C BC ####[facility] Znadvfjjmv3315 [place] [address]Dr. Airma Tripathi RBC 3.24 106/ul Critically low 4.20-5.40 [facility] Comment on above: Performed By: #### C BC ####[facility] Hobxcwnzot7599 [place] [phone]. Airam Tripathi WBC 5.8 103/ul Normal 4.0-11.0 [facility] Comment on above: Performed By: #### C BC ####[facility] Jkeagozfyv8612 [place] [phone]. Airam Tripathi OSMOLALITYon 10-25-2022 Osmolality [Osmolality] 282 mosm/kg Normal 275-295 [facility] Comment on above: Performed By: #### O SMO ####[facility] Dmzpsbuyuo1156 [place] [address]Dr. Airma Tripathi PROF 14(COMP METB)on 023 Albumin [Mass/Vol] 2.7 g/dL Critically low 3.4-5.0 [facility] Comment on above: Performed By: #### C MP, BNP ####[facility] Ajtnhbzczl1694 [place] [address]Dr. Airam Tripathi Albumin/Globulin [Mass ratio] 0.9 {ratio} Normal [facility] Comment on above: Performed By: #### C MP, BNP ####[facility] Eomhmypuww7660 [place] [address]Dr. Airam Tripathi ALP [Catalytic activity/Vol] 122 U/L Critically high 46-116 [facility] Comment on above: Performed By: #### C MP, BNP ####[facility] Tldvybicub3807 [place] [phone]. Airam Tripathi ALT [Catalytic activity/Vol] 23 U/L Normal 14-59 [facility] Comment on above: Performed By: #### C MP, BNP ####[facility] Njtocwkmkf8798 [place] [phone]. Airam Deuce Anion gap [Moles/Vol] 10.5 mmol/L Normal [facility] Comment on above: Performed By: #### C MP, BNP ####[facility] Ozcujvrfpw[address] [place], [place] [address]Dr. Airam Deuce AST [Catalytic activity/Vol] 22 U/L Normal 15-37 [facility] Comment on above: Performed By: #### C MP, BNP ####[facility] Anppmyhbfl6315 [place] [address]Dr. Airam Deuce Bilirubin [Mass/Vol] 0.2 mg/dL Normal 0.2-1.0 [facility] Comment on above: Performed By: #### C MP, BNP ####[facility] Vnjjlvlsch1985 [place] [address]Dr. Airam Deuce Calcium [Mass/Vol] 8.3 mg/dL Critically low 8.5-10.1 [facility] Comment on above: Performed By: #### C MP, BNP ####[facility] Yxjlhahvkk2903 [place] [address]Dr. Airam Tripathi Chloride [Moles/Vol] 102 mmol/L Normal 98-107 [facility] Comment on above: Performed By: #### C MP, BNP ####[facility] Esusqdfnzz2851 [place] [address]Dr. Airam Tripathi CO2 [Moles/Vol] 29.7 mmol/L Normal 21.0-32.0 [facility] Comment on above: Performed By: #### C MP, BNP ####[facility] Mymmzxuftt2083 [place] [address]Dr. Airam Tripathi Creatinine [Mass/Vol] 1.31 mg/dL Critically high 0.55-1.02 [facility] Comment on above: Performed By: #### C MP, BNP ####[facility] Oniopvgyzr[address] [place], [place] [address]Dr. Airam Tripathi EGFR-AF MALAGASY 50 mL/min/1.73m2 Critically low >=60 [facility] Comment on above: Performed By: #### C MP, BNP ####[facility] Mgoxadtbik[address] [place], [place] [address]Dr. Airam Tripathi EGFR-NON AF MALAGASY 41 mL/min/1.73m2 Critically low >=60 [facility] Comment on above: Performed By: #### C MP, BNP ####[facility] Mmvcyupdwt[address] [place], [place] [address]Dr. Airam Tripathi Globulin (S) [Mass/Vol] 2.9 g/dL Normal [facility] Comment on above: Performed By: #### C MP, BNP ####[facility] Xracoqznor644[address] [place], [place] [address]Dr. Airam Tripathi Glucose [Mass/Vol] 94 mg/dL Normal 74-106 [facility] Comment on above: Performed By: #### C MP, BNP ####[facility] Juwvitbzja[address] [place], [place] [address]Dr. Airam Tripathi Potassium [Moles/Vol] 4.2 mmol/L Normal 3.5-5.1 [facility] Comment on above: Performed By: #### C MP, BNP ####[facility] Hbmqhzgpal[address] [place], [place] [address]Dr. Airam Tripathi Protein [Mass/Vol] 5.6 g/dL Critically low 6.4-8.2 [facility] Comment on above: Performed By: #### C MP, BNP ####[facility] [address]wlrgygx[address] [place], [place] [address]Dr. Airam Tripathi Sodium [Moles/Vol] 138 mmol/L Normal 136-145 [facility] Comment on above: Performed By: #### C MP, BNP ####[facility] Ztipdbmvyx[address] [place], [place] [address]Dr. Airam Tripathi Urea nitrogen [Mass/Vol] 33.0 mg/dL Critically high 7.0-18.0 [facility] Comment on above: Performed By: #### C MP, BNP ####[facility] Otfwtqxlwp[address] [place], [place] [address]Dr. Airam Tripathi Urea nitrogen/Creatinine [Mass ratio] 25.2 mg/mg Normal [facility] Comment on above: Performed By: #### C MP, BNP ####[facility] Dnzrvvmhyc[address] [place], [place] [address]Dr. Airam Tripathi BNPon 10-24-2022 Natriuretic peptide B (Bld) [Mass/Vol] 3805.0 pg/mL Critically high <=900.0 [facility] Comment on above: Performed By: #### H STROPN, BNP, CMP ####[facility] Brvsvaknsi[address] [place], [place] [address]Dr. Airam Tripathi CBC AUTO DIFFon 10-24-2022 BASO # 0.0 103/ul Normal 0.0-0.1 [facility] Comment on above: Performed By: #### C BC ####[facility] Dkadiueqfy[address] [place], [place] [address]Dr. Airam Deuce Basophils/100 WBC (Bld) 0.3 % Normal 0.2-2.0 [facility] Comment on above: Performed By: #### C BC ####[facility] Ujomssvyuv[address] [place], [place] [address]Dr. Airam Tripathi EO # 0.3 103/ul Normal 0.0-0.7 [facility] Comment on above: Performed By: #### C BC ####[facility] Xeppobffeb[address] [place], [place] [address]Dr. Airam Deuce Eosinophils/100 WBC (Bld) 4.2 % Normal 0.9-7.0 [facility] Comment on above: Performed By: #### C BC ####[facility] Iohjnftzmn8042 [place] [address]Dr. Airam Tripathi Erythrocyte distribution width (RBC) [Ratio] 15.6 % Critically high 11.0-15.0 [facility] Comment on above: Performed By: #### C BC ####[facility] Xlgsjtbbdx[address] [place], [place] [address]Dr. Airam Tripathi Hematocrit (Bld) [Volume fraction] 30.0 % Critically low 36.0-48.0 [facility] Comment on above: Performed By: #### C BC ####[facility] Qlkatoddyv[address] [place], [place] [address]Dr. Airam Tripathi Hemoglobin (Bld) [Mass/Vol] 9.3 g/dL Critically low 12.0-16.0 [facility] Comment on above: Performed By: #### C BC ####[facility] Snndrfelba[address] [place], [place] [address]Dr. Airam Tripathi IG # 0.03 10e3/ul Normal 0.00-0.03 [facility] Comment on above: Performed By: #### C BC ####[facility] [address]ytqhzpww[address] [place], [place] [address]Dr. Airam Tripathi IG % 0.5 % Normal 0.0-0.5 [facility] Comment on above: Performed By: #### C BC ####[facility] We[address]wnxwuwn[address] [place], [place] [address]Dr. Airam Tripathi LYMPH # 1.4 103/ul Normal 1.2-3.8 [facility] Comment on above: Performed By: #### C BC ####[facility] Ufnmnvacaw[address] [place], [place] [address]Dr. Airam Tripathi Lymphocytes/100 WBC (Bld) 22.5 % Normal 20.5-60.0 [facility] Comment on above: Performed By: #### C BC ####[facility] Cwpqdtgiec[address] [place], [place] [address]Dr. Airam Tripathi MANUAL DIFF REQ NO Normal [facility] Comment on above: Performed By: #### C BC ####[facility] Idaqsatfze[address] [place] [id number]. Airam Tripathi MCH (RBC) [Entitic mass] 28.7 pg Normal 26.7-34.0 [facility] Comment on above: Performed By: #### C BC ####[facility] Txdezunmkn6354 [place] [phone]. Airam Tripathi MCHC (RBC) [Mass/Vol] 31.0 g/dL Normal 29.9-35.2 [facility] Comment on above: Performed By: #### C BC ####[facility] Xooaecvpnr4122 [place] [address]Dr. Airam Deuce MCV (RBC) [Entitic vol] 92.6 fL Normal 81.0-99.0 [facility] Comment on above: Performed By: #### C BC ####[facility] [address]qzipyg[address] [place], [place] [address]Dr. Selenaneil Tripathi MONO # 0.4 103/ul Normal 0.3-0.8 [facility] Comment on above: Performed By: #### C BC ####[facility] Xjmpznbzzr[address] [place], [place] [address]Dr. Selenaneil Tripathi Monocytes/100 WBC (Bld) 7.3 % Normal 1.7-12.0 [facility] Comment on above: Performed By: #### C BC ####[facility] Svdmsmcbij[address] [place], [place] [address]Dr. Airam Tripathi NEUT # 3.9 103/ul Normal 1.4-6.5 [facility] Comment on above: Performed By: #### C BC ####[facility] Zkdeyqtyeb[address] [place], [place] [address]Dr. Selenaneil Tripathi Neutrophils/100 WBC (Bld) 65.2 % Normal 43.0-75.0 [facility] Comment on above: Performed By: #### C BC ####[facility] Fwvwewkexq[address] [place], [place] [address]Dr. Airam Tripathi Platelet mean volume (Bld) [Entitic vol] 9.0 fL Critically low 9.5-13.5 [facility] Comment on above: Performed By: #### C BC ####[facility] [address] [place] [address]Dr. Airam Tripathi PLT 247 103/ul Normal 150-450 [facility] Comment on above: Performed By: #### C BC ####[facility] [address] [place] [id number]. Airam Tripathi RBC 3.24 106/ul Critically low 4.20-5.40 [facility] Comment on above: Performed By: #### C BC ####[facility] [address] [place] [id number]. Airam Tripathi WBC 6.0 103/ul Normal 4.0-11.0 [facility] Comment on above: Performed By: #### C BC ####[facility] [address]gefekg[address] [place] [address]Dr. Airam Tripathi CULTURE URINEon 10-24-2022 CULTURE URINE Culture Observations : LIGHT GROWTH OF MIXED GENITAL GREGORY. NO POTENTIAL PATHOGENS SEEN. Normal [facility] Comment on above: Performed By: #### U RCX ####[facility] [address] [place] [address]Dr. Airam Tripathi POINT OF CARE GLUCOSEon 050 Glucose [Mass/Vol] 118 mg/dL Critically high 74-106 [facility] Comment on above: Performed By: #### P OCGLUC ####[facility] [address]re[address]ws[address] [place] [address]Dr. Airam Tripathi PROF 14(COMP METB)on 023 Albumin [Mass/Vol] 3.1 g/dL Critically low 3.4-5.0 [facility] Comment on above: Performed By: #### H STROPN, BNP, CMP ####[facility] Azdeixkkvd[address] [place] [address]Dr. Airam Tripathi Albumin/Globulin [Mass ratio] 1.0 {ratio} Normal [facility] Comment on above: Performed By: #### H STROPN, BNP, CMP ####[facility] Ezbxjmrneq[address] [place] [address]Dr. Airam Tripathi ALP [Catalytic activity/Vol] 131 U/L Critically high 46-116 [facility] Comment on above: Performed By: #### H STROPN, BNP, CMP ####[facility] Lmfopralzw[address] [place] [address]Dr. Airam Tripathi ALT [Catalytic activity/Vol] 26 U/L Normal 14-59 [facility] Comment on above: Performed By: #### H STROPN, BNP, CMP ####[facility] Hctdrhphpo[address] [place], [place] [address]Dr. Airam Tripathi Anion gap [Moles/Vol] 11.2 mmol/L Normal [facility] Comment on above: Performed By: #### H STROPN, BNP, CMP ####[facility] Wpehjsinkz[address] [place], [place] [address]Dr. Airam Tripathi AST [Catalytic activity/Vol] 31 U/L Normal 15-37 [facility] Comment on above: Performed By: #### H STROPN, BNP, CMP ####[facility] Elansewtdh7[address] [place], [place] [address]Dr. Airam Tripathi Bilirubin [Mass/Vol] 0.2 mg/dL Normal 0.2-1.0 [facility] Comment on above: Performed By: #### H STROPN, BNP, CMP ####[facility] Rzfougewal[address] [place], [place] [address]Dr. Airam Tripathi Calcium [Mass/Vol] 8.6 mg/dL Normal 8.5-10.1 [facility] Comment on above: Performed By: #### H STROPN, BNP, CMP ####[facility] Rkcuwawrax[address] [place], [place] [address]Dr. Airam Tripathi Chloride [Moles/Vol] 102 mmol/L Normal 98-107 [facility] Comment on above: Performed By: #### H STROPN, BNP, CMP ####[facility] Mxakveevhs[address] [place], [place] [address]Dr. Airam Tripathi CO2 [Moles/Vol] 27.4 mmol/L Normal 21.0-32.0 [facility] Comment on above: Performed By: #### H STROPN, BNP, CMP ####[facility] Chogydrmfu[address] [place] [address]Dr. Airam Tripathi Creatinine [Mass/Vol] 1.23 mg/dL Critically high 0.55-1.02 [facility] Comment on above: Performed By: #### H STROPN, BNP, CMP ####[facility] Adcrkabprn[address] [place] [address]Dr. Airam Tripathi EGFR-AF MALAGASY 54 mL/min/1.73m2 Critically low >=60 [facility] Comment on above: Performed By: #### H STROPN, BNP, CMP ####[facility] Ryvlgdbomi[address] [place], [place] [address]Dr. Airam Tripathi EGFR-NON AF MALAGASY 45 mL/min/1.73m2 Critically low >=60 [facility] Comment on above: Performed By: #### H STROPN, BNP, CMP ####[facility] Muxwcnrklh[address] [place], [place] [address]Dr. Airam Tripathi Globulin (S) [Mass/Vol] 3.1 g/dL Normal [facility] Comment on above: Performed By: #### H STROPN, BNP, CMP ####[facility] Engbakxxtf[address] [place], [place] [address]Dr. Airam Tripathi Glucose [Mass/Vol] 90 mg/dL Normal 74-106 [facility] Comment on above: Performed By: #### H STROPN, BNP, CMP ####[facility] Vsspkligfh[address] [place], [place] [address]Dr. Airam Tripathi Potassium [Moles/Vol] 5.6 mmol/L Critically high 3.5-5.1 [facility] Comment on above: Performed By: #### H STROPN, BNP, CMP ####[facility] Cfwmqkotnr23[address] [place], [place] [address]Dr. Airam Tripathi Protein [Mass/Vol] 6.2 g/dL Critically low 6.4-8.2 [facility] Comment on above: Performed By: #### H STROPN, BNP, CMP ####[facility] [address]aim[address] [place] [phone]. Airam Tripathi Sodium [Moles/Vol] 135 mmol/L Critically low 136-145 [facility] Comment on above: Performed By: #### H STROPN, BNP, CMP ####[facility] [address]lso[address] [place] [phone]. Airam Tripathi Urea nitrogen [Mass/Vol] 38.0 mg/dL Critically high 7.0-18.0 [facility] Comment on above: Performed By: #### H STROPN, BNP, CMP ####[facility] Fskjxvavhw[address] [place] [phone]. Airam Tripathi Urea nitrogen/Creatinine [Mass ratio] 30.9 mg/mg Normal [facility] Comment on above: Performed By: #### H STROPN, BNP, CMP ####[facility] Y[address]phkktry[address] [place] [address]Dr. Airam Tripathi TROPONIN, HIGH SENSITIVITYon 10-24-2022 HSTROP 8.0 pg/mL Normal 4.0-51.3 [facility] Comment on above: Result Comment: CUT- OFF POINTS HAVE BEEN ESTABLISHED BASED ON THE FOURTH UNIVERSAL DEFINITIONS OF MYOCARDIALINFARCTION. THE UPPER REFERENCE LIMIT (URL) OF TROPONIN, DEFINED THE 99TH PERCENTILE OFcTnI DISTRIBUTION IN A REFERENCE POPULATION, HAS BEEN CONFIRMED THE DECISION THRESHOLDFOR MA DIAGNOSIS. Performed By: #### H STROPN, BNP, CMP ####[facility] T[address]qvfbpic[address] [place] [address]Dr. Airam Tripathi UA RANDOM W/MICROSCOPICon BACTERIA NONE SEEN Normal NONE SEEN [facility] Comment on above: Performed By: #### U AMIC ####[facility] [address]qelwse[address] [place] [address]Dr. Airam Tripathi Bilirubin Ql (U) Negative Normal NEGATIVE [facility] Comment on above: Performed By: #### U AMIC ####[facility] [address]dfrfwh[address] [place] [phone]. Airam Tripathi CAST NONE SEEN Normal NONE SEEN [facility] Comment on above: Performed By: #### U AMIC ####[facility] Is[address]qwpvas[address] [place] [address]Dr. Airam Tripathi Clarity (U) CLEAR Normal CLEAR [facility] Comment on above: Performed By: #### U AMIC ####[facility] Xz[address]bxwjbp[address] [place] [address]Dr. Airam Tripathi Color (U) LT. YELLOW Normal YELLOW [facility] Comment on above: Performed By: #### U AMIC ####[facility] Ugkwaybgqc[address] [place], [place] [address]Dr. Airam Tripathi Crystals LM Nom (Urine sed) NONE SEEN Normal NONE SEEN [facility] Comment on above: Performed By: #### U AMIC ####[facility] Lilbymjewf[address] [place], [place] [address]Dr. Airam Tripathi Epithelial cells LM Ql (Urine sed) RARE Normal NONE SEEN /RARE [facility] Comment on above: Performed By: #### U AMIC ####[facility] Pumoatnxvc[address] [place], [place] [address]Dr. Airam Tripathi Glucose Ql (U) Negative Normal NEGATIVE [facility] Comment on above: Performed By: #### U AMIC ####[facility] Zkwdlgakbd[address] [place], [place] [address]Dr. Airam Tripathi Hemoglobin Ql (U) Negative Normal NEGATIVE [facility] Comment on above: Performed By: #### U AMIC ####[facility] Wehcfimlij[address] [place], [place] [address]Dr. Airam Tripathi Ketones Ql (U) Negative Normal NEGATIVE [facility] Comment on above: Performed By: #### U AMIC ####[facility] Krjdvexcpy[address] [place], [place] [address]Dr. Airam Tripathi LEUKOCYTES Negative Normal NEGATIVE [facility] Comment on above: Performed By: #### U AMIC ####[facility] Fvitzkwmdz74[address] [place], [place] [address]Dr. Airam Tripathi MUCOUS NONE SEEN Normal NONE SEEN [facility] Comment on above: Performed By: #### U AMIC ####[facility] Vvjnkqgkjt[address] [place], [place] [address]Dr. Airam Tripathi Nitrite Ql (U) Negative Normal NEGATIVE [facility] Comment on above: Performed By: #### U AMIC ####[facility] El[address]itguqr[address] [place] [address]Dr. Airam Tripathi pH (U) 7.0 [pH] Normal 5-9 [facility] Comment on above: Performed By: #### U AMIC ####[facility] Tvzqqnelze[address] [place] [address]Dr. Airam Deuce RBC 0-2 Normal 0-2 [facility] Comment on above: Performed By: #### U AMIC ####[facility] Twmlddqltr[address] [place] [address]Dr. Airam Deuce SPEC GRAVITY 1.015 Normal 1.005-<=1. 025 [facility] Comment on above: Performed By: #### U AMIC ####[facility] Wmjzrgrpna[address] [place], [place] [address]Dr. Airam Tripathi UA PROTEIN Negative Normal NEGATIVE/ TRACE [facility] Comment on above: Performed By: #### U AMIC ####[facility] Invpgekpsz[address] [place], [place] [address]Dr. Airam Deuce Urobilinogen Qn (U) 0.2 {Ligia'U}/dL Normal 0.2 - 1. 0 [facility] Comment on above: Performed By: #### U AMIC ####[facility] Jyufmkmluc8[address] [place], [place] [address]Dr. Airam Deuce WBC NONE SEEN Normal NONE SEEN [facility] Comment on above: Performed By: #### U AMIC ####[facility] Rfqxpqphna[address] [place], [place] [address]Dr. Airam Deuce XR CHEST 1 Von 10-24-2022 XR CHEST 1 V Normal [facility] CBC AUTO DIFFon 10-19-2022 BASO # 0.0 103/ul Normal 0.0-0.1 [facility] Comment on above: Performed By: #### C BC ####[facility] Jxiknzvcwk[address] [place], [place] [address]Dr. Selenaneil Tripathi Basophils/100 WBC (Bld) 0.5 % Normal 0.2-2.0 [facility] Comment on above: Performed By: #### C BC ####[facility] Vvyoxehdxb[address] [place], [place] [address]DrKianna Tripathi EO # 0.3 103/ul Normal 0.0-0.7 [facility] Comment on above: Performed By: #### C BC ####[facility] Qpivcayijp[address] [place], [place] [address]DrKianna Tripathi Eosinophils/100 WBC (Bld) 3.3 % Normal 0.9-7.0 [facility] Comment on above: Performed By: #### C BC ####[facility] Yduzbyvugk[address] [place], [place] [address]Dr. Airam Tripathi Erythrocyte distribution width (RBC) [Ratio] 15.0 % Normal 11.0-15.0 [facility] Comment on above: Performed By: #### C BC ####[facility] Hfqwjrjlqa[address] [place], [place] [address]Dr. Airam Tripathi Hematocrit (Bld) [Volume fraction] 32.9 % Critically low 36.0-48.0 [facility] Comment on above: Performed By: #### C BC ####[facility] Mplvuktdex[address] [place], [place] [address]Dr. Airam Tripathi Hemoglobin (Bld) [Mass/Vol] 10.1 g/dL Critically low 12.0-16.0 [facility] Comment on above: Performed By: #### C BC ####[facility] Kqqiwcfpqz[address] [place], [place] [address]DrKianna Tripathi IG # 0.04 10e3/ul Critically high 0.00-0.03 [facility] Comment on above: Performed By: #### C BC ####[facility] Bpugjfflzh[address] [place], [place] [address]DrKianna Tripathi IG % 0.5 % Normal 0.0-0.5 [facility] Comment on above: Performed By: #### C BC ####[facility] Mtahfsovgo[address] [place], [place] [address]DrKianna Tripathi LYMPH # 1.5 103/ul Normal 1.2-3.8 [facility] Comment on above: Performed By: #### C BC ####[facility] [address]fs[address]zrqxp[address] [place] [address]DrKianna Tripathi Lymphocytes/100 WBC (Bld) 18.1 % Critically low 20.5-60.0 [facility] Comment on above: Performed By: #### C BC ####[facility] Wymefffbll[address] [place], [place] [address]DrKianna Tripathi MANUAL DIFF REQ NO Normal [facility] Comment on above: Performed By: #### C BC ####[facility] Anljftbhhs[address] [place] [address]DrKianna Tripathi MCH (RBC) [Entitic mass] 28.3 pg Normal 26.7-34.0 [facility] Comment on above: Performed By: #### C BC ####[facility] Xbtodzbwdq[address] [place], [place] [address]DrKianna Tripathi MCHC (RBC) [Mass/Vol] 30.7 g/dL Normal 29.9-35.2 [facility] Comment on above: Performed By: #### C BC ####[facility] Jykkderwsl[address] [place], [place] [address]DrKianna Tripathi MCV (RBC) [Entitic vol] 92.2 fL Normal 81.0-99.0 [facility] Comment on above: Performed By: #### C BC ####[facility] Pucujukqwx[address] [place], [place] [address]DrKianna Tripathi MONO # 0.7 103/ul Normal 0.3-0.8 [facility] Comment on above: Performed By: #### C BC ####[facility] Tckonudfih8[address] [place], [place] [address]DrKianna Tripathi Monocytes/100 WBC (Bld) 7.7 % Normal 1.7-12.0 [facility] Comment on above: Performed By: #### C BC ####[facility] Hsngfyzapb066[address] [place], [place] [address]Dr. Airam Tripathi NEUT # 5.9 103/ul Normal 1.4-6.5 [facility] Comment on above: Performed By: #### C BC ####[facility] Q[address]wddyk[address] [place] [address]Dr. Airam Tripathi Neutrophils/100 WBC (Bld) 69.9 % Normal 43.0-75.0 [facility] Comment on above: Performed By: #### C BC ####[facility] Rfnjkafyor[address] [place], [place] [address]DrKianna Tripathi Platelet mean volume (Bld) [Entitic vol] 9.3 fL Critically low 9.5-13.5 [facility] Comment on above: Performed By: #### C BC ####[facility] Khvrkuwsxz[address] [place], [place] [address]DrKianna Tripathi PLT 293 103/ul Normal 150-450 [facility] Comment on above: Performed By: #### C BC ####[facility] Wlszwpfwuq[address] [place], [place] [address]DrKianna Tripathi RBC 3.57 106/ul Critically low 4.20-5.40 [facility] Comment on above: Performed By: #### C BC ####[facility] Gmfrzsihfc[address] [place], [place] [address]Dr. Airam Tripathi WBC 8.4 103/ul Normal 4.0-11.0 [facility] Comment on above: Performed By: #### C BC ####[facility] Rzczdikbyq[address] [place], [place] [address]Dr. Airam Tripathi PROF 14(COMP METB)on 023 Albumin [Mass/Vol] 3.1 g/dL Critically low 3.4-5.0 [facility] Comment on above: Performed By: #### C MP ####[facility] Mxfluwayjm[address] [place], [place] [address]DrKianna Tripathi Albumin/Globulin [Mass ratio] 0.9 {ratio} Normal [facility] Comment on above: Performed By: #### C MP ####[facility] Rifcmucygb[address] [place], [place] [address]DrKianna Tripathi ALP [Catalytic activity/Vol] 117 U/L Critically high 46-116 [facility] Comment on above: Performed By: #### C MP ####[facility] [address]axuhsgqyy[address] [place] [address]Dr. Airam Tripathi ALT [Catalytic activity/Vol] 24 U/L Normal 14-59 [facility] Comment on above: Performed By: #### C MP ####[facility] Kavpqsoazo[address] [place], [place] [address]Dr. Airam Deuce Anion gap [Moles/Vol] 11.1 mmol/L Normal [facility] Comment on above: Performed By: #### C MP ####[facility] Bjlxnmmiyk[address] [place], [place] [address]Dr. Airam Deuce AST [Catalytic activity/Vol] 22 U/L Normal 15-37 [facility] Comment on above: Performed By: #### C MP ####[facility] Euqmozbmqm25[address] [place], [place] [address]Dr. Airam Decue Bilirubin [Mass/Vol] 0.2 mg/dL Normal 0.2-1.0 [facility] Comment on above: Performed By: #### C MP ####[facility] Agmicttqgr103[address] [place], [place] [address]Dr. Airam Deuce Calcium [Mass/Vol] 8.4 mg/dL Critically low 8.5-10.1 [facility] Comment on above: Performed By: #### C MP ####[facility] Sdhyypivye[address] [place], [place] [address]Dr. Airam Deuce Chloride [Moles/Vol] 103 mmol/L Normal 98-107 [facility] Comment on above: Performed By: #### C MP ####[facility] Vrhdccvrlx[address] [place], [place] [address]Dr. Airam Deuce CO2 [Moles/Vol] 25.0 mmol/L Normal 21.0-32.0 [facility] Comment on above: Performed By: #### C MP ####[facility] Dynunyrxpi[address] [place], [place] [address]Dr. Airam Deuce Creatinine [Mass/Vol] 1.27 mg/dL Critically high 0.55-1.02 [facility] Comment on above: Performed By: #### C MP ####[facility] Ywtqduibdm[address] [place] [address]Dr. Airam Tripathi EGFR-AF MALAGASY 52 mL/min/1.73m2 Critically low >=60 [facility] Comment on above: Performed By: #### C MP ####[facility] Hsivgmhjld[address] [place] [address]Dr. Airam Tripathi EGFR-NON AF MALAGASY 43 mL/min/1.73m2 Critically low >=60 [facility] Comment on above: Performed By: #### C MP ####[facility] Gllrkalqsy[address] [place], [place] [address]Dr. Airam Tripathi Globulin (S) [Mass/Vol] 3.3 g/dL Normal [facility] Comment on above: Performed By: #### C MP ####[facility] Cujhjxmnby[address] [place], [place] [address]Dr. Airam Tripathi Glucose [Mass/Vol] 90 mg/dL Normal 74-106 [facility] Comment on above: Performed By: #### C MP ####[facility] Ijjenqdxgm16[address] [place], [place] [address]Dr. iAram Tripathi Potassium [Moles/Vol] 5.1 mmol/L Normal 3.5-5.1 [facility] Comment on above: Performed By: #### C MP ####[facility] Btootmkogs[address] [place], [place] [address]Dr. Airam Tripathi Protein [Mass/Vol] 6.4 g/dL Normal 6.4-8.2 [facility] Comment on above: Performed By: #### C MP ####[facility] Dqnfnbjkgm[address] [place], [place] [address]Dr. Airam Tripathi Sodium [Moles/Vol] 134 mmol/L Critically low 136-145 [facility] Comment on above: Performed By: #### C MP ####[facility] Xculqjaycl013[address] [place], [place] [address]Dr. Airam Tripathi Urea nitrogen [Mass/Vol] 33.0 mg/dL Critically high 7.0-18.0 [facility] Comment on above: Performed By: #### C MP ####[facility] Kpscdajzte[address] [place], [place] [address]Dr. Airam Tripathi Urea nitrogen/Creatinine [Mass ratio] 26.0 mg/mg Normal [facility] Comment on above: Performed By: #### C MP ####[facility] Kzecgrnxpq[address] [place], [place] [address]DrKianna Tripathi OSMOLALITYon 10-15-2022 Osmolality [Osmolality] 272 mosm/kg Critically low 275-295 [facility] Comment on above: Performed By: #### O SMO ####[facility] Hzjjjwpbcx[address] [place], [place] [address]Dr. Airam Tripathi 36on 10-12-2022 36 Can you get the henry ining labs please [facility] 36 [facility] lab called to re port critical BNP of 1,337. FYI [facility] BNPon 10-12-2022 Natriuretic peptide B (Bld) [Mass/Vol] 1337.0 pg/mL Critically high <=900.0 [facility] Comment on above: Performed By: #### B ADMINISTRATIVE OFFICER ####[facility] Goiavjungk[address] [place], [place] [address]Dr. Airam Tripathi CBC AUTO DIFFon 10-12-2022 BASO # 0.0 103/ul Normal 0.0-0.1 [facility] Comment on above: Performed By: #### C BC ####[facility] Qtmvbruxyy[address] [place], [place] [address]Dr. Airam Tripathi Basophils/100 WBC (Bld) 0.6 % Normal 0.2-2.0 [facility] Comment on above: Performed By: #### C BC ####[facility] Rdspahtaqy[address] [place], [place] [address]DrKianna Tripathi EO # 0.2 103/ul Normal 0.0-0.7 [facility] Comment on above: Performed By: #### C BC ####[facility] Ohebsdzpjn[address] [place], [place] [address]Dr. Airam Tripathi Eosinophils/100 WBC (Bld) 2.3 % Normal 0.9-7.0 [facility] Comment on above: Performed By: #### C BC ####[facility] [address]uplmj[address] [place] [address]Dr. Airam Tripathi Erythrocyte distribution width (RBC) [Ratio] 15.1 % Critically high 11.0-15.0 [facility] Comment on above: Performed By: #### C BC ####[facility] Bqtvsljidm[address] [place], [place] [address]Dr. Airam Tripathi Hematocrit (Bld) [Volume fraction] 35.9 % Critically low 36.0-48.0 [facility] Comment on above: Performed By: #### C BC ####[facility] Owidpnzsff[address] [place], [place] [address]Dr. Airam Tripathi Hemoglobin (Bld) [Mass/Vol] 11.4 g/dL Critically low 12.0-16.0 [facility] Comment on above: Performed By: #### C BC ####[facility] Zaanwgvsxy[address] [place], [place] [address]Dr. Airam Tripathi IG # 0.03 10e3/ul Normal 0.00-0.03 [facility] Comment on above: Performed By: #### C BC ####[facility] Qqzxostbzy[address] [place], [place] [address]Dr. Airam Tripathi IG % 0.5 % Normal 0.0-0.5 [facility] Comment on above: Performed By: #### C BC ####[facility] Jwdkiboicq[address] [place], [place] [address]Dr. Airam Tripathi LYMPH # 1.1 103/ul Critically low 1.2-3.8 [facility] Comment on above: Performed By: #### C BC ####[facility] Mgdyaytlvk[address] [place], [place] [address]Dr. Airam Tripathi Lymphocytes/100 WBC (Bld) 17.2 % Critically low 20.5-60.0 [facility] Comment on above: Performed By: #### C BC ####[facility] [address] [place] [address]Dr. Airam Deuce MANUAL DIFF REQ NO Normal [facility] Comment on above: Performed By: #### C BC ####[facility] [address] [place] [address]Dr. Airam Tripathi MCH (RBC) [Entitic mass] 28.8 pg Normal 26.7-34.0 [facility] Comment on above: Performed By: #### C BC ####[facility] [facility] [address] [place] [address]Dr. Airam Deuce MCHC (RBC) [Mass/Vol] 31.8 g/dL Normal 29.9-35.2 [facility] Comment on above: Performed By: #### C BC ####[facility] Iaoycwvfjw78[address] [place] [address]Dr. Selenaneil Tripathi MCV (RBC) [Entitic vol] 90.7 fL Normal 81.0-99.0 [facility] Comment on above: Performed By: #### C BC ####[facility] Mybmovztzc[address] [place] [address]Dr. Airam Deuce MONO # 0.5 103/ul Normal 0.3-0.8 [facility] Comment on above: Performed By: #### C BC ####[facility] Lmcokambql[address] [place] [address]Dr. Selenaneil Tripathi Monocytes/100 WBC (Bld) 7.7 % Normal 1.7-12.0 [facility] Comment on above: Performed By: #### C BC ####[facility] Apfczicpdh[address] [place] [address]Dr. Selenaneil Deuce NEUT # 4.7 103/ul Normal 1.4-6.5 [facility] Comment on above: Performed By: #### C BC ####[facility] Eekjazpoki[address] [place] [address]Dr. Airam Tripathi Neutrophils/100 WBC (Bld) 71.7 % Normal 43.0-75.0 [facility] Comment on above: Performed By: #### C BC ####[facility] Nydxtanphz[address] [place] [address]Dr. Airam Deuce Platelet mean volume (Bld) [Entitic vol] 8.2 fL Critically low 9.5-13.5 [facility] Comment on above: Performed By: #### C BC ####[facility] Zhapkciuru[address] [place] [address]Dr. Selenaneil Deuce PLT 292 103/ul Normal 150-450 [facility] Comment on above: Performed By: #### C BC ####[facility] Xhurnonumb[address] [place] [address]Dr. Selenaneil Deuce RBC 3.96 106/ul Critically low 4.20-5.40 [facility] Comment on above: Performed By: #### C BC ####[facility] Qapsbguetx[address] [place], [place] [address]Dr. Airam Tripathi WBC 6.6 103/ul Normal 4.0-11.0 [facility] Comment on above: Performed By: #### C BC ####[facility] Loccbocvht[address] [place], [place] [address]Dr. Airam Tripathi PROF 14(COMP METB)on 023 Albumin [Mass/Vol] 3.3 g/dL Critically low 3.4-5.0 [facility] Comment on above: Performed By: #### C MP ####[facility] Exggyankeg[address] [place], [place] [address]Dr. Airam Tripathi Albumin/Globulin [Mass ratio] 0.9 {ratio} Normal [facility] Comment on above: Performed By: #### C MP ####[facility] Feqtuaxbxp[address] [place], [place] [address]Dr. Airam Tripathi ALP [Catalytic activity/Vol] 130 U/L Critically high 46-116 [facility] Comment on above: Performed By: #### C MP ####[facility] Bkvaybcegb244[address] [place], [place] [address]Dr. Airam Tripathi ALT [Catalytic activity/Vol] 23 U/L Normal 14-59 [facility] Comment on above: Performed By: #### C MP ####[facility] Qbgxlnxxmh[address] [place] [address]Dr. Selenaneil Deuce Anion gap [Moles/Vol] 11.7 mmol/L Normal [facility] Comment on above: Performed By: #### C MP ####[facility] Mxdfhqkhju[address] [place], [place] [address]Dr. Airam Tripathi AST [Catalytic activity/Vol] 23 U/L Normal 15-37 [facility] Comment on above: Performed By: #### C MP ####[facility] Edqznmlvuk[address] [place], [place] [address]Dr. Airam Tripathi Bilirubin [Mass/Vol] 0.3 mg/dL Normal 0.2-1.0 [facility] Comment on above: Performed By: #### C MP ####[facility] Hkwnwjhpko8[address] [place], [place] [address]Dr. Airam Tripathi Calcium [Mass/Vol] 8.7 mg/dL Normal 8.5-10.1 [facility] Comment on above: Performed By: #### C MP ####[facility] Ozcgckloqz515[address] [place], [place] [address]Dr. Airam Tripathi Chloride [Moles/Vol] 99 mmol/L Normal 98-107 [facility] Comment on above: Performed By: #### C MP ####[facility] Iedohhguvm[address] [place], [place] [address]Dr. Airam Tripathi CO2 [Moles/Vol] 28.5 mmol/L Normal 21.0-32.0 [facility] Comment on above: Performed By: #### C MP ####[facility] Sjtcmauuaw87[address] [place], [place] [address]Dr. Airam Tripathi Creatinine [Mass/Vol] 1.06 mg/dL Critically high 0.55-1.02 [facility] Comment on above: Performed By: #### C MP ####[facility] Rwvejrwmit6824[address] [place], [place] [address]Dr. Airam Tripathi EGFR-AF MALAGASY >60 Normal >=60 [facility] Comment on above: Performed By: #### C MP ####[facility] Ubelkwdrii2799[address] [place], [place] [address]Dr. Airam Tripathi EGFR-NON AF MALAGASY 53 mL/min/1.73m2 Critically low >=60 [facility] Comment on above: Performed By: #### C MP ####[facility] Yybsriivic[address] [place] [address]Dr. Airam Tripathi Globulin (S) [Mass/Vol] 3.5 g/dL Normal [facility] Comment on above: Performed By: #### C MP ####[facility] Vtqhsjohxl9[address] [place], [place] [address]Dr. Airam Tripathi Glucose [Mass/Vol] 79 mg/dL Normal 74-106 [facility] Comment on above: Performed By: #### C MP ####[facility] Vtnpkvcjwn5732[address] [place], [place] [address]Dr. Airam Tripathi Potassium [Moles/Vol] 4.2 mmol/L Normal 3.5-5.1 [facility] Comment on above: Performed By: #### C MP ####[facility] Lbgfyqwhgn350[address] [place], [place] [address]Dr. Airam Tripathi Protein [Mass/Vol] 6.8 g/dL Normal 6.4-8.2 [facility] Comment on above: Performed By: #### C MP ####[facility] Yrbyvjnpmc64[address] [place], [place] [address]Dr. Airam Tripathi Sodium [Moles/Vol] 135 mmol/L Critically low 136-145 [facility] Comment on above: Performed By: #### C MP ####[facility] Qzkcenohmi8024[address] [place], [place] [address]Dr. Airam Tripathi Urea nitrogen [Mass/Vol] 16.0 mg/dL Normal 7.0-18.0 [facility] Comment on above: Performed By: #### C MP ####[facility] Ofnvejujyn[address] [place], [place] [address]Dr. Airam Tripathi Urea nitrogen/Creatinine [Mass ratio] 15.1 mg/mg Normal [facility] Comment on above: Performed By: #### C MP ####[facility] Xrbrhyjidu84[address] [place], [place] [address]Dr. Airam Tripathi XR CHEST 1 Von 10-12-2022 XR CHEST 1 V Normal [facility] Office Visiton 10-10-2022 Follow-up visit [id number] Loren Moser 1960 F Date Provider Department Center 10/10/2022 FlakitaZANDRA MCKEON CARD [facility] No family history on file Level of Service:64745 [place] OFFICE/OUTPATIENT ESTABLISHED MOD MDM 30-39 MIN Reason for Visit and Comments: Congestive Heart Failure [127] Re-establish care [Other] Normal [facility] PRBC LEUKOREDUCEDon 10-10-19 23 PRBC LEUKOREDUCED Normal [facility] Comment on above: Performed By: #### P RBC ####[facility] Qlsrdcbyks[address] [place], [place] [address]DrKianna Tripathi CULTURE URINEon 10-08-2022 CULTURE URINE Normal [facility] Comment on above: Performed By: #### U RCX ####[facility] Mvmtuwnxka[address] [place], [place] [address]DrKianna Tripathi OSMOLALITYon 10-08-2022 Osmolality [Osmolality] 282 mosm/kg Normal 275-295 [facility] Comment on above: Performed By: #### O SMO ####[facility] Kwbdvugxod[address] [place], [place] [address]DrKianna Tripathi CBC AUTO DIFFon 10-07-2022 BASO # 0.0 103/ul Normal 0.0-0.1 [facility] Comment on above: Performed By: #### C BC ####[facility] Nxmlmrhary[address] [place], [place] [address]DrKianna Tripathi Basophils/100 WBC (Bld) 0.3 % Normal 0.2-2.0 [facility] Comment on above: Performed By: #### C BC ####[facility] Yoqwnldjxk02[address] [place], [place] [address]DrKianna Tripathi EO # 0.2 103/ul Normal 0.0-0.7 [facility] Comment on above: Performed By: #### C BC ####[facility] Xskwtzxduj7[address] [place], [place] [address]DrKianna Tripathi Eosinophils/100 WBC (Bld) 3.4 % Normal 0.9-7.0 [facility] Comment on above: Performed By: #### C BC ####[facility] Mdlcgbwdky[address] [place] [address]Dr. Airam Tripathi Erythrocyte distribution width (RBC) [Ratio] 15.2 % Critically high 11.0-15.0 [facility] Comment on above: Performed By: #### C BC ####[facility] Jllmhvesuf88[address] [place], [place] [address]Dr. Airam Tripathi Hematocrit (Bld) [Volume fraction] 31.3 % Critically low 36.0-48.0 [facility] Comment on above: Performed By: #### C BC ####[facility] Assvhvmatc8[address] [place], [place] [address]Dr. Airam Tripathi Hemoglobin (Bld) [Mass/Vol] 9.9 g/dL Critically low 12.0-16.0 [facility] Comment on above: Performed By: #### C BC ####[facility] Zfxytchekt[address] [place], [place] [address]Dr. Airam Tripathi IG # 0.03 10e3/ul Normal 0.00-0.03 [facility] Comment on above: Performed By: #### C BC ####[facility] Qmtqcappto32[address] [place], [place] [address]Dr. Airam Tripathi IG % 0.4 % Normal 0.0-0.5 [facility] Comment on above: Performed By: #### C BC ####[facility] Iwphuavekf[address] [place], [place] [address]Dr. Airam Tripathi LYMPH # 1.3 103/ul Normal 1.2-3.8 [facility] Comment on above: Performed By: #### C BC ####[facility] Satniobjcz[address] [place], [place] [address]Dr. Airam Tripathi Lymphocytes/100 WBC (Bld) 19.0 % Critically low 20.5-60.0 [facility] Comment on above: Performed By: #### C BC ####[facility] Bzwxxetftv[address] [place], [place] [address]Dr. Selenaneil Tripathi MANUAL DIFF REQ NO Normal [facility] Comment on above: Performed By: #### C BC ####[facility] Ligrtoxexz[address] [place] [address]Dr. Airam Deuce MCH (RBC) [Entitic mass] 28.1 pg Normal 26.7-34.0 [facility] Comment on above: Performed By: #### C BC ####[facility] Hvcpasdifn[address] [place], [place] [address]Dr. Airam Deuce MCHC (RBC) [Mass/Vol] 31.6 g/dL Normal 29.9-35.2 [facility] Comment on above: Performed By: #### C BC ####[facility] Echzaeohmi8[address] [place], [place] [address]Dr. Airam Tripathi MCV (RBC) [Entitic vol] 88.9 fL Normal 81.0-99.0 [facility] Comment on above: Performed By: #### C BC ####[facility] Ykrkzxknnu8[address] [place], [place] [address]Dr. Airam Tripathi MONO # 0.6 103/ul Normal 0.3-0.8 [facility] Comment on above: Performed By: #### C BC ####[facility] Bfnamdsctk[address] [place], [place] [address]Dr. Airam Tripathi Monocytes/100 WBC (Bld) 9.0 % Normal 1.7-12.0 [facility] Comment on above: Performed By: #### C BC ####[facility] Qzfkdyysei[address] [place], [place] [address]DrKianna Tripathi NEUT # 4.5 103/ul Normal 1.4-6.5 [facility] Comment on above: Performed By: #### C BC ####[facility] Rdplszwvtv7[address] [place], [place] [address]DrKianna Tripathi Neutrophils/100 WBC (Bld) 67.9 % Normal 43.0-75.0 [facility] Comment on above: Performed By: #### C BC ####[facility] Azwqosaqht[address] [place], [place] [address]Dr. Airam Tripathi Platelet mean volume (Bld) [Entitic vol] 9.1 fL Critically low 9.5-13.5 [facility] Comment on above: Performed By: #### C BC ####[facility] Qianmnjnir4[address] [place] [address]Dr. Airam Tripathi PLT 256 103/ul Normal 150-450 [facility] Comment on above: Performed By: #### C BC ####[facility] Connhkwwyv22[address] [place] [address]Dr. Airam Tripathi RBC 3.52 106/ul Critically low 4.20-5.40 [facility] Comment on above: Performed By: #### C BC ####[facility] Bmmnskraik[address] [place] [address]Dr. Airam Tripathi WBC 6.7 103/ul Normal 4.0-11.0 [facility] Comment on above: Performed By: #### C BC ####[facility] Fsxialkcnz9179 [place] [address]DrKianna Tripathi PROF 14(COMP METB)on 023 Albumin [Mass/Vol] 2.8 g/dL Critically low 3.4-5.0 [facility] Comment on above: Performed By: #### C MP ####[facility] Ypzwumjyct26[address] [place] [address]DrKianna Tripathi Albumin/Globulin [Mass ratio] 0.9 {ratio} Normal [facility] Comment on above: Performed By: #### C MP ####[facility] Pvystgjpma7508 [place] [address]DrKianna Tripathi ALP [Catalytic activity/Vol] 118 U/L Critically high 46-116 [facility] Comment on above: Performed By: #### C MP ####[facility] Wbpopgszpf9632 [place] [address]DrKianna Tripathi ALT [Catalytic activity/Vol] 23 U/L Normal 14-59 [facility] Comment on above: Performed By: #### C MP ####[facility] Futwgkmobt[address] [place], [place] [address]Dr. Airam Tripathi Anion gap [Moles/Vol] 12.5 mmol/L Normal [facility] Comment on above: Performed By: #### C MP ####[facility] Uejpwxbeof209[address] [place], [place] [address]Dr. Airam Deuce AST [Catalytic activity/Vol] 21 U/L Normal 15-37 [facility] Comment on above: Performed By: #### C MP ####[facility] Tjpjsymnem68[address] [place], [place] [address]Dr. Airam Deuce Bilirubin [Mass/Vol] 0.4 mg/dL Normal 0.2-1.0 [facility] Comment on above: Performed By: #### C MP ####[facility] Vmdxottdce1816[address] [place], [place] [address]Dr. Airam Tripathi Calcium [Mass/Vol] 8.2 mg/dL Critically low 8.5-10.1 [facility] Comment on above: Performed By: #### C MP ####[facility] Dgrrwyerwi1318[address] [place], [place] [address]Dr. Airam Tripathi Chloride [Moles/Vol] 99 mmol/L Normal 98-107 [facility] Comment on above: Performed By: #### C MP ####[facility] Cbtwagxrxk10[address] [place], [place] [address]Dr. Airam Tripathi CO2 [Moles/Vol] 24.9 mmol/L Normal 21.0-32.0 [facility] Comment on above: Performed By: #### C MP ####[facility] Cyapbroxei2[address] [place], [place] [address]Dr. Airam Tripathi Creatinine [Mass/Vol] 1.61 mg/dL Critically high 0.55-1.02 [facility] Comment on above: Performed By: #### C MP ####[facility] Iqiwyebvne94[address] [place], [place] [address]Dr. Airam Tripathi EGFR-AF MALAGASY 40 mL/min/1.73m2 Critically low >=60 [facility] Comment on above: Performed By: #### C MP ####[facility] Roosfsffgc[address] [place], [place] [address]Dr. Airam Tripathi EGFR-NON AF MALAGASY 33 mL/min/1.73m2 Critically low >=60 [facility] Comment on above: Performed By: #### C MP ####[facility] Trbnodgnrk0356 [place] [address]Dr. Airam Tripathi Globulin (S) [Mass/Vol] 3.2 g/dL Normal [facility] Comment on above: Performed By: #### C MP ####[facility] Gmnyqqadnn815[address] [place], [place] [address]Dr. Airam Deuce Glucose [Mass/Vol] 67 mg/dL Critically low 74-106 [facility] Comment on above: Performed By: #### C MP ####[facility] Uifakfguus[address] [place], [place] [address]Dr. Airam Deuce Potassium [Moles/Vol] 5.4 mmol/L Critically high 3.5-5.1 [facility] Comment on above: Performed By: #### C MP ####[facility] Ztvngnzejr415[address] [place], [place] [address]Dr. Airam Deuce Protein [Mass/Vol] 6.0 g/dL Critically low 6.4-8.2 [facility] Comment on above: Performed By: #### C MP ####[facility] Rhzfmiissg[address] [place], [place] [address]Dr. Airam Deuce Sodium [Moles/Vol] 131 mmol/L Critically low 136-145 [facility] Comment on above: Performed By: #### C MP ####[facility] Vfozrfwrjn[address] [place], [place] [address]Dr. Selenaneil Deuce Urea nitrogen [Mass/Vol] 43.0 mg/dL Critically high 7.0-18.0 [facility] Comment on above: Performed By: #### C MP ####[facility] Callkfiisn[address] [place], [place] [address]Dr. Selenaneil Deuce Urea nitrogen/Creatinine [Mass ratio] 26.7 mg/mg Normal [facility] Comment on above: Performed By: #### C MP ####[facility] Dbrtrwrisu0738[address] [place], [place] [address]Dr. Airam Deuce CBC AUTO DIFFon 10-06-2022 BASO # 0.0 103/ul Normal 0.0-0.1 [facility] Comment on above: Performed By: #### C BC ####[facility] Xbphtpupnb74[address] [place] [address]Dr. Airam Tripathi Basophils/100 WBC (Bld) 0.3 % Normal 0.2-2.0 [facility] Comment on above: Performed By: #### C BC ####[facility] Brvbyefwwf23[address] [place] [address]Dr. Airam Deuce EO # 0.2 103/ul Normal 0.0-0.7 [facility] Comment on above: Performed By: #### C BC ####[facility] Bbjqzjfyeh[address] [place], [place] [address]Dr. Selenaneil Tripathi Eosinophils/100 WBC (Bld) 3.1 % Normal 0.9-7.0 [facility] Comment on above: Performed By: #### C BC ####[facility] Owlkebgljd[address] [place], [place] [address]Dr. Airam Tripathi Erythrocyte distribution width (RBC) [Ratio] 15.0 % Normal 11.0-15.0 [facility] Comment on above: Performed By: #### C BC ####[facility] Btekxitzep[address] [place], [place] [address]Dr. Airam Tripathi Hematocrit (Bld) [Volume fraction] 30.9 % Critically low 36.0-48.0 [facility] Comment on above: Performed By: #### C BC ####[facility] Wkuxhonwmp[address] [place], [place] [address]Dr. Airam Tripathi Hemoglobin (Bld) [Mass/Vol] 10.1 g/dL Critically low 12.0-16.0 [facility] Comment on above: Result Comment: BIJU ENT RECIEVED 2 UNITS PRBC'S Performed By: #### C BC ####[facility] Oubqtbttzw[address] [place], [place] [address]Dr. Airam Tripathi IG # 0.03 10e3/ul Normal 0.00-0.03 [facility] Comment on above: Performed By: #### C BC ####[facility] Ccabvuunnu[address] [place] [id number]. Airam Tripathi IG % 0.4 % Normal 0.0-0.5 [facility] Comment on above: Performed By: #### C BC ####[facility] Oaplekfsop18[address] [place] [id number]. Airam Tripathi LYMPH # 1.1 103/ul Critically low 1.2-3.8 [facility] Comment on above: Performed By: #### C BC ####[facility] Hordgmhixg4[address] [place] [address]Dr. Airam Tripathi Lymphocytes/100 WBC (Bld) 14.4 % Critically low 20.5-60.0 [facility] Comment on above: Performed By: #### C BC ####[facility] Ipcqmimjyf035[address] [place] [address]Dr. Airam Tripathi MANUAL DIFF REQ NO Normal [facility] Comment on above: Performed By: #### C BC ####[facility] Onjirhhdvz6[address] [place] [address]Dr. Airam Tripathi MCH (RBC) [Entitic mass] 28.9 pg Normal 26.7-34.0 [facility] Comment on above: Performed By: #### C BC ####[facility] Saugmtasab6[address] [place] [address]Dr. Airam Tripathi MCHC (RBC) [Mass/Vol] 32.7 g/dL Normal 29.9-35.2 [facility] Comment on above: Performed By: #### C BC ####[facility] Vbbobznywj7327 [place] [address]Dr. Airam Tripathi MCV (RBC) [Entitic vol] 88.3 fL Normal 81.0-99.0 [facility] Comment on above: Performed By: #### C BC ####[facility] Cjdbiufeuj[address] [place], [place] [address]Dr. Airam Tripathi MONO # 0.6 103/ul Normal 0.3-0.8 [facility] Comment on above: Performed By: #### C BC ####[facility] Ykzywxtnbh[address] [place] [id number]. Airam Tripathi Monocytes/100 WBC (Bld) 7.8 % Normal 1.7-12.0 [facility] Comment on above: Performed By: #### C BC ####[facility] Qbmhwisdqm4528 [place] [id number]. Airam Tripathi NEUT # 5.5 103/ul Normal 1.4-6.5 [facility] Comment on above: Performed By: #### C BC ####[facility] Uvpbvpiowi8998 [place] [address]Dr. Airam Tripathi Neutrophils/100 WBC (Bld) 74.0 % Normal 43.0-75.0 [facility] Comment on above: Performed By: #### C BC ####[facility] Ipdhtmhfmw9986 [place] [address]Dr. Airam Tripathi Platelet mean volume (Bld) [Entitic vol] 9.2 fL Critically low 9.5-13.5 [facility] Comment on above: Performed By: #### C BC ####[facility] Dynjexecfb1732 [place] [address]Dr. Airam Tripathi PLT 275 103/ul Normal 150-450 [facility] Comment on above: Performed By: #### C BC ####[facility] Ocsgsxxuou9327 [place] [address]Dr. Airam Tripathi RBC 3.50 106/ul Critically low 4.20-5.40 [facility] Comment on above: Performed By: #### C BC ####[facility] Lauafwiugk[address] [place], [place] [address]Dr. Airam Tripathi WBC 7.4 103/ul Normal 4.0-11.0 [facility] Comment on above: Performed By: #### C BC ####[facility] Oiraxfswzv6[address] [place] [address]Dr. Airam Tripathi BASO # 0.0 103/ul Normal 0.0-0.1 [facility] Comment on above: Performed By: #### C BC ####[facility] Ujlscqzytk9[address] [place] [id number]. Airam Tripathi Basophils/100 WBC (Bld) 0.4 % Normal 0.2-2.0 [facility] Comment on above: Performed By: #### C BC ####[facility] Imjqrysqez6062 [place] [id number]. Airam Tripathi EO # 0.2 103/ul Normal 0.0-0.7 [facility] Comment on above: Performed By: #### C BC ####[facility] Bagetjqxdc[address] [place], [place] [address]Dr. Airam Tripathi Eosinophils/100 WBC (Bld) 4.5 % Normal 0.9-7.0 [facility] Comment on above: Performed By: #### C BC ####[facility] Yzinjwgefr[address] [place], [place] [address]Dr. Airam Tripathi Erythrocyte distribution width (RBC) [Ratio] 15.1 % Critically high 11.0-15.0 [facility] Comment on above: Performed By: #### C BC ####[facility] [address]fvvrymjk[address] [place], [place] [address]Dr. Airam Tripathi Hematocrit (Bld) [Volume fraction] 23.0 % Critically low 36.0-48.0 [facility] Comment on above: Performed By: #### C BC ####[facility] Phwitihktf79[address] [place] [id number]. Airam Tripathi Hemoglobin (Bld) [Mass/Vol] 7.2 g/dL Critically low 12.0-16.0 [facility] Comment on above: Performed By: #### C BC ####[facility] G[address]hfwrbpo[address] [place], [place] [address]Dr. Airam Tripathi IG # 0.02 10e3/ul Normal 0.00-0.03 [facility] Comment on above: Performed By: #### C BC ####[facility] Eehqzfchhq[address] [place], [place] [address]Dr. Airam Tripathi IG % 0.4 % Normal 0.0-0.5 [facility] Comment on above: Performed By: #### C BC ####[facility] Gxtkztashf[address] [place] [id number]. Airam Tripathi LYMPH # 1.0 103/ul Critically low 1.2-3.8 [facility] Comment on above: Performed By: #### C BC ####[facility] Qktwifxbos3957 [place] [id number]. Airam Tripathi Lymphocytes/100 WBC (Bld) 22.5 % Normal 20.5-60.0 [facility] Comment on above: Performed By: #### C BC ####[facility] [address]jkskkbqf[address] [place] [address]Dr. Airam Deuce MANUAL DIFF REQ NO Normal [facility] Comment on above: Performed By: #### C BC ####[facility] X[address] [place] [address]Dr. Airam Deuce MCH (RBC) [Entitic mass] 28.3 pg Normal 26.7-34.0 [facility] Comment on above: Performed By: #### C BC ####[facility] Uvuyitcq[address] [place], [place] [address]Dr. Airam Tripathi MCHC (RBC) [Mass/Vol] 31.3 g/dL Normal 29.9-35.2 [facility] Comment on above: Performed By: #### C BC ####[facility] Y[address]ajesab[address] [place] [address]Dr. Airam Tripathi MCV (RBC) [Entitic vol] 90.6 fL Normal 81.0-99.0 [facility] Comment on above: Performed By: #### C BC ####[facility] Yurghccfae[address] [place] [address]Dr. Airam Tripathi MONO # 0.5 103/ul Normal 0.3-0.8 [facility] Comment on above: Performed By: #### C BC ####[facility] Mdfddsvfcy34[address] [place] [address]Dr. Airam Deuce Monocytes/100 WBC (Bld) 9.7 % Normal 1.7-12.0 [facility] Comment on above: Performed By: #### C BC ####[facility] Lznzxlxffs[address] [place] [id number]. Airam Tripathi NEUT # 2.9 103/ul Normal 1.4-6.5 [facility] Comment on above: Performed By: #### C BC ####[facility] Dmzzggwrud9[address] [place] [id number]. Airam Tripathi Neutrophils/100 WBC (Bld) 62.5 % Normal 43.0-75.0 [facility] Comment on above: Performed By: #### C BC ####[facility] Wkrfvrifdz87[address] [place] [address]Dr. Airam Tripathi Platelet mean volume (Bld) [Entitic vol] 8.9 fL Critically low 9.5-13.5 [facility] Comment on above: Performed By: #### C BC ####[facility] Auzfckqwxc4[address] [place] [address]Dr. Airam Tripathi PLT 210 103/ul Normal 150-450 [facility] Comment on above: Performed By: #### C BC ####[facility] Pgbydhjjbo[address] [place] [address]Dr. Airam Tripathi RBC 2.54 106/ul Critically low 4.20-5.40 [facility] Comment on above: Performed By: #### C BC ####[facility] Kbyydptzwz30[address] [place] [address]Dr. Airam Tripathi WBC 4.6 103/ul Normal 4.0-11.0 [facility] Comment on above: Performed By: #### C BC ####[facility] Hzdludgydn2288 [place] [address]Dr. Airam Tripathi OSMOLALITYon 10-06-2022 Osmolality [Osmolality] 279 mosm/kg Normal 275-295 [facility] Comment on above: Performed By: #### O SMO ####[facility] [address]ssogjtpya[address] [place], [place] [address]Dr. Airam Tripathi POINT OF CARE GLUCOSEon 09-24 Glucose [Mass/Vol] 72 mg/dL Critically low 74-106 [facility] Comment on above: Performed By: #### P OCGLUC ####[facility] Izuerobocl[address] [place] [id number]. Airam Tripathi Glucose [Mass/Vol] 102 mg/dL Normal 74-106 [facility] Comment on above: Performed By: #### P OCGLUC ####[facility] Ekyndiaezq57[address] [place] [id number]. Airam Tripathi Glucose [Mass/Vol] 165 mg/dL Critically high 74-106 [facility] Comment on above: Performed By: #### P OCGLUC ####[facility] Zkniybrwdx7[address] [place] [address]Dr. Airam Tripathi PROF 14(COMP METB)on 023 Albumin [Mass/Vol] 2.6 g/dL Critically low 3.4-5.0 [facility] Comment on above: Performed By: #### C MP ####[facility] Vggkpmaxxu[address] [place], [place] [address]Dr. Airam Tripathi Albumin/Globulin [Mass ratio] 0.9 {ratio} Normal [facility] Comment on above: Performed By: #### C MP ####[facility] Njxszebkvt4[address] [place], [place] [address]Dr. Airam Tripathi ALP [Catalytic activity/Vol] 107 U/L Normal 46-116 [facility] Comment on above: Performed By: #### C MP ####[facility] Brgpblqflo37[address] [place] [address]Dr. Airam Tripathi ALT [Catalytic activity/Vol] 22 U/L Normal 14-59 [facility] Comment on above: Performed By: #### C MP ####[facility] Kkmbwwnsnn31[address] [place] [address]Dr. Airam Tripathi Anion gap [Moles/Vol] 10.0 mmol/L Normal [facility] Comment on above: Performed By: #### C MP ####[facility] Gyzqebqpho26[address] [place] [address]Dr. Airam Tripathi AST [Catalytic activity/Vol] 19 U/L Normal 15-37 [facility] Comment on above: Performed By: #### C MP ####[facility] Hnlvjgioem9543 [place] [phone]. Airam Tripathi Bilirubin [Mass/Vol] 0.2 mg/dL Normal 0.2-1.0 [facility] Comment on above: Performed By: #### C MP ####[facility] Uemcfhhmjb80[address] [place] [phone]. Airam Tripathi Calcium [Mass/Vol] 8.1 mg/dL Critically low 8.5-10.1 [facility] Comment on above: Performed By: #### C MP ####[facility] Ybdsskckym0133 [place] [phone]. Airam Tripathi Chloride [Moles/Vol] 100 mmol/L Normal 98-107 [facility] Comment on above: Performed By: #### C MP ####[facility] Hhbzivwvsn[address] [place], [place] [address]Dr. Airam Tripathi CO2 [Moles/Vol] 26.2 mmol/L Normal 21.0-32.0 [facility] Comment on above: Performed By: #### C MP ####[facility] Inywrseuhn[address] [place], [place] [address]Dr. Airam Tripathi Creatinine [Mass/Vol] 1.90 mg/dL Critically high 0.55-1.02 [facility] Comment on above: Performed By: #### C MP ####[facility] Krvyhvokke8[address] [place] [address]Dr. Airam Tripathi EGFR-AF MALAGASY 33 mL/min/1.73m2 Critically low >=60 [facility] Comment on above: Performed By: #### C MP ####[facility] Lmyeephwue5[address] [place] [phone]. Airam Tripathi EGFR-NON AF MALAGASY 27 mL/min/1.73m2 Critically low >=60 [facility] Comment on above: Performed By: #### C MP ####[facility] Mgyzcwdmwr[address] [place], [place] [address]Dr. Airam Tripathi Globulin (S) [Mass/Vol] 2.8 g/dL Normal [facility] Comment on above: Performed By: #### C MP ####[facility] Ceaillmhwr74[address] [place] [phone]. Airam Tripathi Glucose [Mass/Vol] 115 mg/dL Critically high 74-106 [facility] Comment on above: Performed By: #### C MP ####[facility] Nfcdbkmhxv5961 [place] [phone]. Airam Tripathi Potassium [Moles/Vol] 5.2 mmol/L Critically high 3.5-5.1 [facility] Comment on above: Performed By: #### C MP ####[facility] Lajafybllr[address] [place] [address]Dr. Airam Tripathi Protein [Mass/Vol] 5.4 g/dL Critically low 6.4-8.2 [facility] Comment on above: Performed By: #### C MP ####[facility] Brxmkvnffo[address] [place], [place] [address]Dr. Airam Tripathi Sodium [Moles/Vol] 131 mmol/L Critically low 136-145 [facility] Comment on above: Performed By: #### C MP ####[facility] Zkrajkbzam[address] [place], [place] [address]Dr. Airam Tripathi Urea nitrogen [Mass/Vol] 41.0 mg/dL Critically high 7.0-18.0 [facility] Comment on above: Performed By: #### C MP ####[facility] Xsfnzywlen[address] [place], [place] [address]Dr. Airam Tripathi Urea nitrogen/Creatinine [Mass ratio] 21.6 mg/mg Normal [facility] Comment on above: Performed By: #### C MP ####[facility] Ywzucofvbr[address] [place], [place] [address]Dr. Airam Tripathi TYPE AND SCREENon 10-06-2022 TYPE AND SCREEN Negative Normal [facility] Comment on above: Performed By: #### T NS ####[facility] Tifnilkhro[address] [place], [place] [address]Dr. Airam Tripathi CBC AUTO DIFFon 10-05-2022 BASO # 0.0 103/ul Normal 0.0-0.1 [facility] Comment on above: Performed By: #### C BC ####[facility] Hbrtcplrgy6200 [place] [phone]. Airam Tripathi Basophils/100 WBC (Bld) 0.5 % Normal 0.2-2.0 [facility] Comment on above: Performed By: #### C BC ####[facility] Qrnaqnsmuh0542 [place] [address]Dr. Airam Tripathi EO # 0.2 103/ul Normal 0.0-0.7 [facility] Comment on above: Performed By: #### C BC ####[facility] Sjowqeajot[address] [place], [place] [address]Dr. Airam Tripathi Eosinophils/100 WBC (Bld) 3.2 % Normal 0.9-7.0 [facility] Comment on above: Performed By: #### C BC ####[facility] Vsqryonlaz[address] [place], [place] [address]Dr. Airam Tripathi Erythrocyte distribution width (RBC) [Ratio] 15.2 % Critically high 11.0-15.0 [facility] Comment on above: Performed By: #### C BC ####[facility] Nemvmbwezh[address] [place], [place] [address]Dr. Airam Tripathi Hematocrit (Bld) [Volume fraction] 24.7 % Critically low 36.0-48.0 [facility] Comment on above: Performed By: #### C BC ####[facility] Yfzyxwqzvq[address] [place], [place] [address]Dr. Airam Tripathi Hemoglobin (Bld) [Mass/Vol] 7.6 g/dL Critically low 12.0-16.0 [facility] Comment on above: Performed By: #### C BC ####[facility] Bwvmznlbjw[address] [place], [place] [address]Dr. Airam Tripathi IG # 0.02 10e3/ul Normal 0.00-0.03 [facility] Comment on above: Performed By: #### C BC ####[facility] Ablrvbcbfe[address] [place], [place] [address]Dr. Airam Tripathi IG % 0.3 % Normal 0.0-0.5 [facility] Comment on above: Performed By: #### C BC ####[facility] Mcxtvsxjfl7764 [place] [address]Dr. Airam Tripathi LYMPH # 1.1 103/ul Critically low 1.2-3.8 [facility] Comment on above: Performed By: #### C BC ####[facility] Qdzamymqkv7334 [place] [phone]. Airam Tripathi Lymphocytes/100 WBC (Bld) 18.4 % Critically low 20.5-60.0 [facility] Comment on above: Performed By: #### C BC ####[facility] Ibrzrzplvm2582 [place] [address]Dr. Airam Tripathi MANUAL DIFF REQ NO Normal [facility] Comment on above: Performed By: #### C BC ####[facility] Zwslvytedh4678 [place] [address]Dr. Airam Tripathi MCH (RBC) [Entitic mass] 28.5 pg Normal 26.7-34.0 [facility] Comment on above: Performed By: #### C BC ####[facility] Simazswzqj7[address] [place], [place] [address]Dr. Airam Tripathi MCHC (RBC) [Mass/Vol] 30.8 g/dL Normal 29.9-35.2 [facility] Comment on above: Performed By: #### C BC ####[facility] Dnajpwkpft[address] [place], [place] [address]DrKianna Tripathi MCV (RBC) [Entitic vol] 92.5 fL Normal 81.0-99.0 [facility] Comment on above: Performed By: #### C BC ####[facility] Zlzgbjugpb[address] [place], [place] [address]DrKianna Tripathi MONO # 0.6 103/ul Normal 0.3-0.8 [facility] Comment on above: Performed By: #### C BC ####[facility] Jtlwmzeuqn3131 [place] [address]Dr. Airam Tripathi Monocytes/100 WBC (Bld) 10.0 % Normal 1.7-12.0 [facility] Comment on above: Performed By: #### C BC ####[facility] Qfjyoltjyg0744 [place], [place] [address]Uf. Airam Tripathi NEUT # 4.0 103/ul Normal 1.4-6.5 [facility] Comment on above: Performed By: #### C BC ####[facility] Htfbbxqjrv2776 [place], [place] [address]Uu. Airam Tripathi Neutrophils/100 WBC (Bld) 67.6 % Normal 43.0-75.0 [facility] Comment on above: Performed By: #### C BC ####[facility] Dzearawnly3700 [place], [place] [address]Pu. Airam Tripathi Platelet mean volume (Bld) [Entitic vol] 8.8 fL Critically low 9.5-13.5 [facility] Comment on above: Performed By: #### C BC ####[facility] Ksocalpfrn360[address] [place] [phone]. Airam Tripathi PLT 226 103/ul Normal 150-450 [facility] Comment on above: Performed By: #### C BC ####[facility] Esgykqvzeu2686 [place] [phone]. Airam Tripathi RBC 2.67 106/ul Critically low 4.20-5.40 [facility] Comment on above: Performed By: #### C BC ####[facility] Ccaagbwvgi8468 [place] [phone]. Airam Tripathi WBC 5.9 103/ul Normal 4.0-11.0 [facility] Comment on above: Performed By: #### C BC ####[facility] Kgbljvofwp2922 [place] [phone]. Airam Tripathi [facility]on 09-24 SARS-CoV-2 (COVID-19) RNA MIKE+probe Ql (Unsp spec) Not detected Normal NOT DETECTED [facility] Comment on above: Result Comment: When diagnostic [...] for this test is supported by the [employer] and Human Service's declaration that [...] be used). Performed By: #### C VDTBH ####[facility] [address]fvtgfp[address] [place], [place] [address]Dr. Airam Tripathi MAGNESIUMon 10-05-2022 Magnesium [Mass/Vol] 1.7 mg/dL Critically low 1.8-2.4 [facility] Comment on above: Performed By: #### M G, CMP ####[facility] Toxfieleev[address] [place], [place] [address]Dr. Airam Tripathi POINT OF CARE GLUCOSEon 09-24 Glucose [Mass/Vol] 92 mg/dL Normal 74-106 [facility] Comment on above: Performed By: #### P OCGLUC ####[facility] C[address]zggdbqg[address] [place], [place] [address]DrKianna Tripathi PROF 14(COMP METB)on 023 Albumin [Mass/Vol] 2.9 g/dL Critically low 3.4-5.0 [facility] Comment on above: Performed By: #### M G, CMP ####[facility] Sljkclqszh[address] [place], [place] [address]Dr. Airam Tripathi Albumin/Globulin [Mass ratio] 0.9 {ratio} Normal [facility] Comment on above: Performed By: #### M G, CMP ####[facility] Fvbetpzlrz[address] [place], [place] [address]Dr. Airam Tripathi ALP [Catalytic activity/Vol] 122 U/L Critically high 46-116 [facility] Comment on above: Performed By: #### M G, CMP ####[facility] Wwxvfqqypl5358 [place] [phone]. Airam Tripathi ALT [Catalytic activity/Vol] 24 U/L Normal 14-59 [facility] Comment on above: Performed By: #### M G, CMP ####[facility] Qrnsymkzod3128 [place] [phone]. Airam Tripathi Anion gap [Moles/Vol] 13.1 mmol/L Normal [facility] Comment on above: Performed By: #### M G, CMP ####[facility] Qvvilqaakv6368 [place] [phone]. Airam Tripathi AST [Catalytic activity/Vol] 21 U/L Normal 15-37 [facility] Comment on above: Performed By: #### M G, CMP ####[facility] [address]vlujftjpv[address] [place], [place] [address]Dr. Selenaneil Deuce Bilirubin [Mass/Vol] 0.2 mg/dL Normal 0.2-1.0 [facility] Comment on above: Performed By: #### M Yumiko, CMP ####[facility] Ezgndivbxm[address] [place], [place] [address]Dr. Selenaneil Tripathi Calcium [Mass/Vol] 8.4 mg/dL Critically low 8.5-10.1 [facility] Comment on above: Performed By: #### M Yumiko, CMP ####[facility] Ilhqollldt[address] [place], [place] [address]Dr. Airam Tripathi Chloride [Moles/Vol] 102 mmol/L Normal 98-107 [facility] Comment on above: Performed By: #### M G, CMP ####[facility] Emikgymgly6950 [place] [phone]. Airam Tripathi CO2 [Moles/Vol] 23.2 mmol/L Normal 21.0-32.0 [facility] Comment on above: Performed By: #### M G, CMP ####[facility] Xpoczkjxqb23[address] [place], [place] [address]Dr. Selenaneil Tripathi Creatinine [Mass/Vol] 1.96 mg/dL Critically high 0.55-1.02 [facility] Comment on above: Performed By: #### M G, CMP ####[facility] [address]ptzjhytap[address] [place], [place] [address]Dr. Airam Tripathi EGFR-AF MALAGASY 32 mL/min/1.73m2 Critically low >=60 [facility] Comment on above: Performed By: #### M G, CMP ####[facility] Arxmyqratr[address] [place], [place] [address]Dr. Airam Tripathi EGFR-NON AF MALAGASY 26 mL/min/1.73m2 Critically low >=60 [facility] Comment on above: Performed By: #### M Yumiko, CMP ####[facility] Ldigzizuxy[address] [place], [place] [address]Dr. Airam Tripathi Globulin (S) [Mass/Vol] 3.2 g/dL Normal [facility] Comment on above: Performed By: #### Nadya Calderon, CMP ####[facility] Oxnpjfhygs[address] [place], [place] [address]Dr. Airam Tripathi Glucose [Mass/Vol] 68 mg/dL Critically low 74-106 [facility] Comment on above: Performed By: #### Nadya Calderon, CMP ####[facility] Syrwdftemi[address] [place], [place] [address]Dr. Airam Tripathi Potassium [Moles/Vol] 5.3 mmol/L Critically high 3.5-5.1 [facility] Comment on above: Performed By: #### M G, CMP ####[facility] Xtsevytstw[address] [place], [place] [address]Dr. Airam Tripathi Protein [Mass/Vol] 6.1 g/dL Critically low 6.4-8.2 [facility] Comment on above: Performed By: #### M G, CMP ####[facility] Jlcuspfwbt[address] [place], [place] [address]Dr. Airam Tripathi Sodium [Moles/Vol] 133 mmol/L Critically low 136-145 [facility] Comment on above: Performed By: #### Nadya Calderon, CMP ####[facility] Zquqskiqpw[address] [place], [place] [address]Dr. Airam Tripathi Urea nitrogen [Mass/Vol] 39.0 mg/dL Critically high 7.0-18.0 [facility] Comment on above: Performed By: #### M G, CMP ####[facility] Qitypumrpz[address] [place], [place] [address]Dr. Airam Tripathi Urea nitrogen/Creatinine [Mass ratio] 19.9 mg/mg Normal [facility] Comment on above: Performed By: #### M G, CMP ####[facility] Rhswxgwocr[address] [place], [place] [address]Dr. Airam Tripathi SODIUM RANDOM URINEon 2022 Sodium (U) [Moles/Vol] 37 mmol/L Normal 30- [facility] Comment on above: Performed By: #### N AU ####[facility] Pvxerrecht[address] [place], [place] [address]Dr. Airam Tripathi UA RANDOM W/MICROSCOPICon BACTERIA TRACE Abnormal NONE SEEN [facility] Comment on above: Performed By: #### U AMIC ####[facility] Qxafgnzzly[address] [place], [place] [address]Dr. Airam Tripathi Bilirubin Ql (U) Negative Normal NEGATIVE [facility] Comment on above: Performed By: #### U AMIC ####[facility] Watkbuqsbl[address] [place], [place] [address]Dr. Airam Tripathi CAST SEEN Abnormal NONE SEEN [facility] Comment on above: Performed By: #### U AMIC ####[facility] Xibopdmrvo[address] [place], [place] [address]Dr. Airam Tripathi Clarity (U) CLEAR Normal CLEAR [facility] Comment on above: Performed By: #### U AMIC ####[facility] Vuymndambt[address] [place], [place] [address]Dr. Airam Tripathi Color (U) YELLOW Normal YELLOW [facility] Comment on above: Performed By: #### U AMIC ####[facility] Kzchazfish[address] [place], [place] [address]Dr. Airam Tripathi Crystals LM Nom (Urine sed) NONE SEEN Normal NONE SEEN [facility] Comment on above: Performed By: #### U AMIC ####[facility] Wjgzjytrye[address] [place] [address]Dr. Airam Tripathi Epithelial cells LM Ql (Urine sed) RARE Normal NONE SEEN /RARE [facility] Comment on above: Performed By: #### U AMIC ####[facility] Deyhflbktx[address] [place] [address]Dr. Airam Tripathi Glucose Ql (U) Negative Normal NEGATIVE [facility] Comment on above: Performed By: #### U AMIC ####[facility] Xflykrnhlb[address] [place], [place] [address]Dr. Airam Tripathi Hemoglobin Ql (U) Negative Normal NEGATIVE [facility] Comment on above: Performed By: #### U AMIC ####[facility] Ckq[address]rmiwh[address] [place], [place] [address]Dr. Airam Tripathi HYALINE CAST RARE Normal [facility] Comment on above: Performed By: #### U AMIC ####[facility] Jwgroffcri[address] [place], [place] [address]Dr. Airam Tripathi Ketones Ql (U) TRACE Abnormal NEGATIVE [facility] Comment on above: Performed By: #### U AMIC ####[facility] Jerfcecbvh[address] [place], [place] [address]Dr. Airam Tripathi LEUKOCYTES Negative Normal NEGATIVE [facility] Comment on above: Performed By: #### U AMIC ####[facility] Wpqddfcecj[address] [place], [place] [address]Dr. Airam Tripathi MUCOUS NONE SEEN Normal NONE SEEN [facility] Comment on above: Performed By: #### U AMIC ####[facility] Ldzsvtbzyo[address] [place], [place] [address]Dr. Airam Tripathi Nitrite Ql (U) Negative Normal NEGATIVE [facility] Comment on above: Performed By: #### U AMIC ####[facility] Owvlybmden[address] [place], [place] [address]Dr. Airam Tripathi pH (U) 5.0 [pH] Normal 5-9 [facility] Comment on above: Performed By: #### U AMIC ####[facility] Zcedtxbcuo7736 [place] [address]Dr. Airam Deuce RBC 0-2 Normal 0-2 [facility] Comment on above: Performed By: #### U AMIC ####[facility] [address]hbjrqxalt[address] [place], [place] [address]Dr. Airam Tripathi SPEC GRAVITY 1.015 Normal 1.005-<=1. 025 [facility] Comment on above: Performed By: #### U AMIC ####[facility] Vpigkdsrtx[address] [place], [place] [address]Dr. Airam Deuce UA PROTEIN Negative Normal NEGATIVE/ TRACE [facility] Comment on above: Performed By: #### U AMIC ####[facility] Abzkjwppjb[address] [place], [place] [address]Dr. Selenaneil Tripathi Urobilinogen Qn (U) 0.2 {Ligia'U}/dL Normal 0.2 - 1. 0 [facility] Comment on above: Performed By: #### U AMIC ####[facility] Yvonkhglgx[address] [place], [place] [address]Dr. Airam Deuce WBC NONE SEEN Normal NONE SEEN [facility] Comment on above: Performed By: #### U AMIC ####[facility] Udvoyqhtlj[address] [place], [place] [address]Dr. Airam Deuce CBC AUTO DIFFon 10-04-2022 BASO # 0.0 103/ul Normal 0.0-0.1 [facility] Comment on above: Performed By: #### C BC ####[facility] S[address]ukrbjsz[address] [place], [place] [address]Dr. Selenaneil Tripathi Basophils/100 WBC (Bld) 0.3 % Normal 0.2-2.0 [facility] Comment on above: Performed By: #### C BC ####[facility] Yunnikruxf[address] [place], [place] [address]Dr. Airam Tripathi EO # 0.2 103/ul Normal 0.0-0.7 [facility] Comment on above: Performed By: #### C BC ####[facility] [address]orasbefpx[address] [place], [place] [address]Dr. Airam Tripathi Eosinophils/100 WBC (Bld) 3.2 % Normal 0.9-7.0 [facility] Comment on above: Performed By: #### C BC ####[facility] Webkwpoqbs[address] [place], [place] [address]Dr. Airam Tripathi Erythrocyte distribution width (RBC) [Ratio] 15.1 % Critically high 11.0-15.0 [facility] Comment on above: Performed By: #### C BC ####[facility] Cclfynoj[address] [place], [place] [address]Dr. Airam Tripathi Hematocrit (Bld) [Volume fraction] 27.6 % Critically low 36.0-48.0 [facility] Comment on above: Performed By: #### C BC ####[facility] [address]hfzqcrc[address] [place], [place] [address]Dr. Airam Tripathi Hemoglobin (Bld) [Mass/Vol] 8.7 g/dL Critically low 12.0-16.0 [facility] Comment on above: Performed By: #### C BC ####[facility] Ohmfxcdfvh[address] [place], [place] [address]Dr. Airam Tripathi IG # 0.03 10e3/ul Normal 0.00-0.03 [facility] Comment on above: Performed By: #### C BC ####[facility] Mbwlsggpef[address] [place], [place] [address]Dr. Airam Tripathi IG % 0.4 % Normal 0.0-0.5 [facility] Comment on above: Performed By: #### C BC ####[facility] Corrxromnx[address] [place], [place] [address]Dr. Airam Tripathi LYMPH # 1.2 103/ul Normal 1.2-3.8 [facility] Comment on above: Performed By: #### C BC ####[facility] Icufggmyyw[address] [place], [place] [address]Dr. Airam Tripathi Lymphocytes/100 WBC (Bld) 16.4 % Critically low 20.5-60.0 [facility] Comment on above: Performed By: #### C BC ####[facility] Rodmobcbbn[address] [place], [place] [address]Dr. Airam Tripathi MANUAL DIFF REQ NO Normal [facility] Comment on above: Performed By: #### C BC ####[facility] [address]ec[address] [place] [address]Dr. Airam Tripathi MCH (RBC) [Entitic mass] 28.5 pg Normal 26.7-34.0 [facility] Comment on above: Performed By: #### C BC ####[facility] Xhsknswqxm[address] [place], [place] [address]Dr. Airam Tripathi MCHC (RBC) [Mass/Vol] 31.5 g/dL Normal 29.9-35.2 [facility] Comment on above: Performed By: #### C BC ####[facility] Kkiffjrsvq[address] [place], [place] [address]Dr. Airam Tripathi MCV (RBC) [Entitic vol] 90.5 fL Normal 81.0-99.0 [facility] Comment on above: Performed By: #### C BC ####[facility] Yclzkoxbou[address] [place], [place] [address]Dr. Airam Tripathi MONO # 0.5 103/ul Normal 0.3-0.8 [facility] Comment on above: Performed By: #### C BC ####[facility] Rrazcfoavm[address] [place], [place] [address]Dr. Airam Tripathi Monocytes/100 WBC (Bld) 7.3 % Normal 1.7-12.0 [facility] Comment on above: Performed By: #### C BC ####[facility] Hsavzogxgj[address] [place], [place] [address]DrKianna Tripathi NEUT # 5.4 103/ul Normal 1.4-6.5 [facility] Comment on above: Performed By: #### C BC ####[facility] Qvpqusjfya[address] [place], [place] [address]DrKianna Tripathi Neutrophils/100 WBC (Bld) 72.4 % Normal 43.0-75.0 [facility] Comment on above: Performed By: #### C BC ####[facility] Lgcqcmjhrj166[address] [place], [place] [address]DrKianna Tripathi Platelet mean volume (Bld) [Entitic vol] 9.1 fL Critically low 9.5-13.5 [facility] Comment on above: Performed By: #### C BC ####[facility] [address]ss[address] [place] [address]Dr. Airam Tripathi PLT 304 103/ul Normal 150-450 [facility] Comment on above: Performed By: #### C BC ####[facility] Qnzabcsxke[address] [place] [address]Dr. Airam Tripathi RBC 3.05 106/ul Critically low 4.20-5.40 [facility] Comment on above: Performed By: #### C BC ####[facility] Fonaogzzsy[address] [place] [address]DrKianna Tripathi WBC 7.4 103/ul Normal 4.0-11.0 [facility] Comment on above: Performed By: #### C BC ####[facility] Sfslnwslwf[address] [place] [address]DrKianna Tripathi PROF 14(COMP METB)on 023 Albumin [Mass/Vol] 3.3 g/dL Critically low 3.4-5.0 [facility] Comment on above: Performed By: #### C MP ####[facility] [address]ch[address] [place] [address]DrKianna Tripathi Albumin/Globulin [Mass ratio] 0.9 {ratio} Normal [facility] Comment on above: Performed By: #### C MP ####[facility] Exqbursepr[address] [place] [address]DrKianna Tripathi ALP [Catalytic activity/Vol] 127 U/L Critically high 46-116 [facility] Comment on above: Performed By: #### C MP ####[facility] Jruhgtlphb[address] [place] [address]DrKianna Tripathi ALT [Catalytic activity/Vol] 29 U/L Normal 14-59 [facility] Comment on above: Performed By: #### C MP ####[facility] Vbkcpylwxs9[address] [place] [address]DrKianna Tripathi Anion gap [Moles/Vol] 14.6 mmol/L Normal [facility] Comment on above: Performed By: #### C MP ####[facility] Gyxbtlrbrn[address] [place] [id number]. Airam Tripathi AST [Catalytic activity/Vol] 28 U/L Normal 15-37 [facility] Comment on above: Performed By: #### C MP ####[facility] Gjmemcrtau[address] [place], [place] [address]Dr. Airam Deuce Bilirubin [Mass/Vol] 0.3 mg/dL Normal 0.2-1.0 [facility] Comment on above: Performed By: #### C MP ####[facility] Tayjwvicqq[address] [place], [place] [address]Dr. Airam Deuce Calcium [Mass/Vol] 8.9 mg/dL Normal 8.5-10.1 [facility] Comment on above: Performed By: #### C MP ####[facility] Lnvknlnnxf170[address] [place], [place] [address]Dr. Airam Deuce Chloride [Moles/Vol] 99 mmol/L Normal 98-107 [facility] Comment on above: Performed By: #### C MP ####[facility] Hmhtzyucug[address] [place], [place] [address]Dr. Airam Deuce CO2 [Moles/Vol] 25.1 mmol/L Normal 21.0-32.0 [facility] Comment on above: Performed By: #### C MP ####[facility] Tgxhhaergt[address] [place], [place] [address]Dr. Airam Deuce Creatinine [Mass/Vol] 1.42 mg/dL Critically high 0.55-1.02 [facility] Comment on above: Performed By: #### C MP ####[facility] Udkhuthxsq8[address] [place], [place] [address]Dr. Airam Deuce EGFR-AF MALAGASY 46 mL/min/1.73m2 Critically low >=60 [facility] Comment on above: Performed By: #### C MP ####[facility] Exikwuokhh8409[address] [place], [place] [address]Dr. Airam Tripathi EGFR-NON AF MALAGASY 38 mL/min/1.73m2 Critically low >=60 [facility] Comment on above: Performed By: #### C MP ####[facility] Ieleoqkruz[address] [place] [address]Dr. Airam Tripathi Globulin (S) [Mass/Vol] 3.6 g/dL Normal [facility] Comment on above: Performed By: #### C MP ####[facility] Znepwqigpl[address] [place] [address]Dr. Airam Tripathi Glucose [Mass/Vol] 79 mg/dL Normal 74-106 [facility] Comment on above: Performed By: #### C MP ####[facility] Jmmmpplwed[address] [place], [place] [address]Dr. Airam Tripathi Potassium [Moles/Vol] 5.7 mmol/L Critically high 3.5-5.1 [facility] Comment on above: Performed By: #### C MP ####[facility] Dutvkfftgj99[address] [place], [place] [address]Dr. Airam Tripathi Protein [Mass/Vol] 6.9 g/dL Normal 6.4-8.2 [facility] Comment on above: Performed By: #### C MP ####[facility] Jtdxwnttbj098[address] [place], [place] [address]Dr. Airam Tripathi Sodium [Moles/Vol] 133 mmol/L Critically low 136-145 [facility] Comment on above: Performed By: #### C MP ####[facility] Hefswhomrl10[address] [place], [place] [address]Dr. Airam Tripathi Urea nitrogen [Mass/Vol] 35.0 mg/dL Critically high 7.0-18.0 [facility] Comment on above: Performed By: #### C MP ####[facility] Nbcjwqefzj[address] [place], [place] [address]Dr. Airam Tripathi Urea nitrogen/Creatinine [Mass ratio] 24.6 mg/mg Normal [facility] Comment on above: Performed By: #### C MP ####[facility] Komeavncfh[address] [place], [place] [address]Dr. Airam Tripathi OSMOLALITYon 10-02-2022 Osmolality [Osmolality] 277 mosm/kg Normal 275-295 [facility] Comment on above: Performed By: #### O SMO ####[facility] Wbgyseqwne[address] [place], [place] [address]Dr. Airam Tripathi CBC AUTO DIFFon 09-29-2022 BASO # 0.0 103/ul Normal 0.0-0.1 [facility] Comment on above: Performed By: #### C BC ####[facility] Ohpxunawsu6[address] [place], [place] [address]Dr. Airam Deuce Basophils/100 WBC (Bld) 0.5 % Normal 0.2-2.0 [facility] Comment on above: Performed By: #### C BC ####[facility] Itzcftlxxs[address] [place], [place] [address]Dr. Airam Tripathi EO # 0.2 103/ul Normal 0.0-0.7 [facility] Comment on above: Performed By: #### C BC ####[facility] Xijkoqnqgo[address] [place], [place] [address]Dr. Airam Tripathi Eosinophils/100 WBC (Bld) 3.2 % Normal 0.9-7.0 [facility] Comment on above: Performed By: #### C BC ####[facility] Kwkhypkhnm404[address] [place], [place] [address]Dr. Airam Tripathi Erythrocyte distribution width (RBC) [Ratio] 15.1 % Critically high 11.0-15.0 [facility] Comment on above: Performed By: #### C BC ####[facility] Hiukihfqnn214[address] [place], [place] [address]Dr. Airam Tripathi Hematocrit (Bld) [Volume fraction] 26.2 % Critically low 36.0-48.0 [facility] Comment on above: Performed By: #### C BC ####[facility] Rimfwivavt42[address] [place], [place] [address]Dr. Airam Tripathi Hemoglobin (Bld) [Mass/Vol] 8.1 g/dL Critically low 12.0-16.0 [facility] Comment on above: Performed By: #### C BC ####[facility] [address]znw[address] [place] [id number]. Airam Tripathi IG # 0.02 10e3/ul Normal 0.00-0.03 [facility] Comment on above: Performed By: #### C BC ####[facility] [address]zsreugf[address] [place] [address]Dr. Airam Tripathi IG % 0.4 % Normal 0.0-0.5 [facility] Comment on above: Performed By: #### C BC ####[facility] K[address]zrywitw[address] [place] [address]Dr. Airam Deuce LYMPH # 1.3 103/ul Normal 1.2-3.8 [facility] Comment on above: Performed By: #### C BC ####[facility] Quxfsphywx78[address] [place] [address]Dr. Selenaneil Tripathi Lymphocytes/100 WBC (Bld) 22.6 % Normal 20.5-60.0 [facility] Comment on above: Performed By: #### C BC ####[facility] [address]mkmqbxcxq19[address] [place] [address]Dr. Selenaneil Tripathi MANUAL DIFF REQ NO Normal [facility] Comment on above: Performed By: #### C BC ####[facility] Izucuvhmrp[address] [place] [address]Dr. Airam Tripathi MCH (RBC) [Entitic mass] 28.0 pg Normal 26.7-34.0 [facility] Comment on above: Performed By: #### C BC ####[facility] Pajvwwmhwo[address] [place] [address]Dr. Airam Tripathi MCHC (RBC) [Mass/Vol] 30.9 g/dL Normal 29.9-35.2 [facility] Comment on above: Performed By: #### C BC ####[facility] Gulqnyuoqo[address] [place], [place] [address]Dr. Airam Tripathi MCV (RBC) [Entitic vol] 90.7 fL Normal 81.0-99.0 [facility] Comment on above: Performed By: #### C BC ####[facility] Quxsnqzlsi14[address] [place] [address]Dr. Airam Tripathi MONO # 0.5 103/ul Normal 0.3-0.8 [facility] Comment on above: Performed By: #### C BC ####[facility] Kqspgxpafk3[address] [place] [address]Dr. Airam Tripathi Monocytes/100 WBC (Bld) 9.6 % Normal 1.7-12.0 [facility] Comment on above: Performed By: #### C BC ####[facility] Fdortlntyz[address] [place], [place] [address]Dr. Airam Tripathi NEUT # 3.6 103/ul Normal 1.4-6.5 [facility] Comment on above: Performed By: #### C BC ####[facility] Dgtbllpgme[address] [place], [place] [address]Dr. Airam Tripathi Neutrophils/100 WBC (Bld) 63.7 % Normal 43.0-75.0 [facility] Comment on above: Performed By: #### C BC ####[facility] Rzggawemde[address] [place], [place] [address]Dr. Airam Tripathi Platelet mean volume (Bld) [Entitic vol] 9.4 fL Critically low 9.5-13.5 [facility] Comment on above: Performed By: #### C BC ####[facility] Nmqcbgjimy12[address] [place], [place] [address]Dr. Airam Deuce PLT 258 103/ul Normal 150-450 [facility] Comment on above: Performed By: #### C BC ####[facility] Itlpyeofti16[address] [place], [place] [address]Dr. Airam Tripathi RBC 2.89 106/ul Critically low 4.20-5.40 [facility] Comment on above: Performed By: #### C BC ####[facility] Xmdxtneekz01[address] [place], [place] [address]Dr. Airam Deuce WBC 5.6 103/ul Normal 4.0-11.0 [facility] Comment on above: Performed By: #### C BC ####[facility] Uzvlornkdc[address] [place], [place] [address]Dr. Airam Tripathi PROF 14(COMP METB)on 023 Albumin [Mass/Vol] 3.0 g/dL Critically low 3.4-5.0 [facility] Comment on above: Performed By: #### C MP ####[facility] Bwmuiegrkn[address] [place], [place] [address]Dr. Airam Tripathi Albumin/Globulin [Mass ratio] 1.1 {ratio} Normal [facility] Comment on above: Performed By: #### C MP ####[facility] Mykntpdzhi[address] [place], [place] [address]Dr. Airam Tripathi ALP [Catalytic activity/Vol] 102 U/L Normal 46-116 [facility] Comment on above: Performed By: #### C MP ####[facility] Kaubzrcwun[address] [place], [place] [address]Dr. Airam Tripathi ALT [Catalytic activity/Vol] 20 U/L Normal 14-59 [facility] Comment on above: Performed By: #### C MP ####[facility] Jbmdwkgpnf[address] [place], [place] [address]Dr. Airam Tripathi Anion gap [Moles/Vol] 11.1 mmol/L Normal [facility] Comment on above: Performed By: #### C MP ####[facility] Jwznizpikm[address] [place], [place] [address]Dr. Airam Tripathi AST [Catalytic activity/Vol] 18 U/L Normal 15-37 [facility] Comment on above: Performed By: #### C MP ####[facility] Xmoakydpss[address] [place], [place] [address]DrKianna Tripathi Bilirubin [Mass/Vol] 0.2 mg/dL Normal 0.2-1.0 [facility] Comment on above: Performed By: #### C MP ####[facility] Rgtgbihfkm699[address] [place], [place] [address]Dr. Airam Tripathi Calcium [Mass/Vol] 8.0 mg/dL Critically low 8.5-10.1 [facility] Comment on above: Performed By: #### C MP ####[facility] Omfuyslabw320[address] [place], [place] [address]Dr. Airam Tripathi Chloride [Moles/Vol] 100 mmol/L Normal 98-107 [facility] Comment on above: Performed By: #### C MP ####[facility] Im[address]zddeqeu[address] [place] [address]Dr. Airam Tripathi CO2 [Moles/Vol] 24.8 mmol/L Normal 21.0-32.0 [facility] Comment on above: Performed By: #### C MP ####[facility] Nnwwcgphyj6[address] [place] [address]Dr. Airam Deuce Creatinine [Mass/Vol] 1.11 mg/dL Critically high 0.55-1.02 [facility] Comment on above: Performed By: #### C MP ####[facility] Aqvfnkstdj[address] [place], [place] [address]Dr. Airam Deuce EGFR-AF MALAGASY >60 Normal >=60 [facility] Comment on above: Performed By: #### C MP ####[facility] Xdwearlyhw[address] [place], [place] [address]Dr. Airam Deuce EGFR-NON AF MALAGASY 50 mL/min/1.73m2 Critically low >=60 [facility] Comment on above: Performed By: #### C MP ####[facility] Biiqjiesqo[address] [place], [place] [address]Dr. Airam Deuce Globulin (S) [Mass/Vol] 2.8 g/dL Normal [facility] Comment on above: Performed By: #### C MP ####[facility] Axvojnxrac01[address] [place], [place] [address]Dr. Airam Deuce Glucose [Mass/Vol] 77 mg/dL Normal 74-106 [facility] Comment on above: Performed By: #### C MP ####[facility] Muoztsmtqu42[address] [place], [place] [address]Dr. Airam Deuce Potassium [Moles/Vol] 4.9 mmol/L Normal 3.5-5.1 [facility] Comment on above: Performed By: #### C MP ####[facility] Lwpnqbdumv74[address] [place], [place] [address]Dr. Selenaneil Tripathi Protein [Mass/Vol] 5.8 g/dL Critically low 6.4-8.2 [facility] Comment on above: Performed By: #### C MP ####[facility] Elkgnploaa[address] [place], [place] [address]Dr. Airam Tripathi Sodium [Moles/Vol] 131 mmol/L Critically low 136-145 [facility] Comment on above: Performed By: #### C MP ####[facility] Wdigokghyd04[address] [place], [place] [address]Dr. Airam Tripathi Urea nitrogen [Mass/Vol] 33.0 mg/dL Critically high 7.0-18.0 [facility] Comment on above: Performed By: #### C MP ####[facility] Yilvbgpkmf[address] [place], [place] [address]Dr. Airam Tripathi Urea nitrogen/Creatinine [Mass ratio] 29.7 mg/mg Normal [facility] Comment on above: Performed By: #### C MP ####[facility] Acvhmcznmy[address] [place], [place] [address]Dr. Airam Tripathi ECHOCARDIO M/2D COMPLETEon 0 09-21-2022 ECHOCARDIO M/2D COMPLETE Normal [facility] OSMOLALITYon 09-21-2022 Osmolality [Osmolality] 282 mosm/kg Normal 275-295 [facility] Comment on above: Performed By: #### O SMO ####[facility] Pnjhafaqat[address] [place], [place] [address]Dr. Airam Tripathi PHOSPHOLIPIDSon 09-21-2022 Phospholipids, Serum 249 mg/dL Normal 151-288 [facility] Comment on above: Performed By: #### P HOSLIP ####[facility] Hijfqvbhev[address] [place], [place] [address]Dr. Airam Tripathi CBC AUTO DIFFon 09-20-2022 BASO # 0.0 103/ul Normal 0.0-0.1 [facility] Comment on above: Performed By: #### C BC ####[facility] Jbcmelshqx154[address] [place], [place] [address]Dr. Airam Tripathi Basophils/100 WBC (Bld) 0.5 % Normal 0.2-2.0 [facility] Comment on above: Performed By: #### C BC ####[facility] [address]xutwwoh[address] [place] [id number]. Airam Tripathi EO # 0.2 103/ul Normal 0.0-0.7 [facility] Comment on above: Performed By: #### C BC ####[facility] Ffliscefid26[address] [place] [address]Dr. Airam Tripathi Eosinophils/100 WBC (Bld) 2.9 % Normal 0.9-7.0 [facility] Comment on above: Performed By: #### C BC ####[facility] Zpaivffsgk[address] [place], [place] [address]Dr. Airam Tripathi Erythrocyte distribution width (RBC) [Ratio] 15.4 % Critically high 11.0-15.0 [facility] Comment on above: Performed By: #### C BC ####[facility] Zdkakhfxli4925[address] [place], [place] [address]Dr. Airam Tripathi Hematocrit (Bld) [Volume fraction] 26.3 % Critically low 36.0-48.0 [facility] Comment on above: Performed By: #### C BC ####[facility] Durqqctljy[address] [place], [place] [address]Dr. Airam Tripathi Hemoglobin (Bld) [Mass/Vol] 8.2 g/dL Critically low 12.0-16.0 [facility] Comment on above: Performed By: #### C BC ####[facility] Fbhwyttjpb[address] [place], [place] [address]Dr. Airam Tripathi IG # 0.03 10e3/ul Normal 0.00-0.03 [facility] Comment on above: Performed By: #### C BC ####[facility] Oizmylezbf[address] [place], [place] [address]Dr. Airam Tripathi IG % 0.4 % Normal 0.0-0.5 [facility] Comment on above: Performed By: #### C BC ####[facility] Evptytmqjk[address] [place], [place] [address]Dr. Selenaneil Tripathi LYMPH # 1.9 103/ul Normal 1.2-3.8 [facility] Comment on above: Performed By: #### C BC ####[facility] Apwnzftfcp[address] [place] [id number]. Selenaneil Tripathi Lymphocytes/100 WBC (Bld) 23.0 % Normal 20.5-60.0 [facility] Comment on above: Performed By: #### C BC ####[facility] Wyohcpfiks[address] [place] [id number]. Airam Tripathi MANUAL DIFF REQ NO Normal [facility] Comment on above: Performed By: #### C BC ####[facility] Aubtvcmcoc4[address] [place] [id number]. Airam Tripathi MCH (RBC) [Entitic mass] 28.5 pg Normal 26.7-34.0 [facility] Comment on above: Performed By: #### C BC ####[facility] Mmpcpolbnq5[address] [place], [place] [address]Dr. Airam Tripathi MCHC (RBC) [Mass/Vol] 31.2 g/dL Normal 29.9-35.2 [facility] Comment on above: Performed By: #### C BC ####[facility] [address]xs[address] [place], [place] [address]Dr. Airam Tripathi MCV (RBC) [Entitic vol] 91.3 fL Normal 81.0-99.0 [facility] Comment on above: Performed By: #### C BC ####[facility] Khkofkkkjn[address] [place], [place] [address]Dr. Airam Tripathi MONO # 0.7 103/ul Normal 0.3-0.8 [facility] Comment on above: Performed By: #### C BC ####[facility] Cxinlvteuj[address] [place], [place] [address]Dr. Airam Tripathi Monocytes/100 WBC (Bld) 7.7 % Normal 1.7-12.0 [facility] Comment on above: Performed By: #### C BC ####[facility] Fpnndxabwn[address] [place], [place] [address]Dr. Airam Tripathi NEUT # 5.5 103/ul Normal 1.4-6.5 [facility] Comment on above: Performed By: #### C BC ####[facility] Xmvclriufj[address] [place] [id number]. Airam Tripathi Neutrophils/100 WBC (Bld) 65.5 % Normal 43.0-75.0 [facility] Comment on above: Performed By: #### C BC ####[facility] Touccmvsae[address] [place] [id number]. Airam Tripathi Platelet mean volume (Bld) [Entitic vol] 9.1 fL Critically low 9.5-13.5 [facility] Comment on above: Performed By: #### C BC ####[facility] Psxvcguisx[address] [place] [address]Dr. Airam Tripathi PLT 258 103/ul Normal 150-450 [facility] Comment on above: Performed By: #### C BC ####[facility] Fjvfvrsjpa40[address] [place] [address]Dr. Airam Tripathi RBC 2.88 106/ul Critically low 4.20-5.40 [facility] Comment on above: Performed By: #### C BC ####[facility] Xccwojljmt55[address] [place] [id number]. Airam Tripathi WBC 8.4 103/ul Normal 4.0-11.0 [facility] Comment on above: Performed By: #### C BC ####[facility] Yvlayjgcyq[address] [place] [address]Dr. Airam Tripathi PROF CHEM 8 (BAS METB)on Anion gap [Moles/Vol] 10.3 mmol/L Normal [facility] Comment on above: Performed By: #### B MP ####[facility] [address]edkgqqrv4[address] [place] [id number]. Airam Tripathi Calcium [Mass/Vol] 7.9 mg/dL Critically low 8.5-10.1 [facility] Comment on above: Performed By: #### B MP ####[facility] Yrrbktcjrm[address] [place] [id number]. Airam Tripathi Chloride [Moles/Vol] 98 mmol/L Normal 98-107 [facility] Comment on above: Performed By: #### B MP ####[facility] Gtvdczwwhc19[address] [place] [id number]. Airam Tripathi CO2 [Moles/Vol] 27.5 mmol/L Normal 21.0-32.0 [facility] Comment on above: Performed By: #### B MP ####[facility] [address]yqbhlmgbj[address] [place] [address]Dr. Selenaneil Deuce Creatinine [Mass/Vol] 1.44 mg/dL Critically high 0.55-1.02 [facility] Comment on above: Performed By: #### B MP ####[facility] [address]wvfbuetmp[address] [place] [address]Dr. Airam Tripathi EGFR-AF MALAGASY 45 mL/min/1.73m2 Critically low >=60 [facility] Comment on above: Performed By: #### B MP ####[facility] [address]wkmnzps[address] [place], [place] [address]Dr. Airam Tripathi EGFR-NON AF MALAGASY 37 mL/min/1.73m2 Critically low >=60 [facility] Comment on above: Performed By: #### B MP ####[facility] [address]vdzbejp[address] [place] [address]Dr. Airam Tripathi Glucose [Mass/Vol] 91 mg/dL Normal 74-106 [facility] Comment on above: Performed By: #### B MP ####[facility] Qkicsphkoy[address] [place] [address]Dr. Airam Tripathi Potassium [Moles/Vol] 4.8 mmol/L Normal 3.5-5.1 [facility] Comment on above: Performed By: #### B MP ####[facility] Kdityjvbrd[address] [place] [address]Dr. Airam Tripathi Sodium [Moles/Vol] 131 mmol/L Critically low 136-145 [facility] Comment on above: Performed By: #### B MP ####[facility] Eghlwooudk[address] [place] [address]Dr. Airam Tripathi Urea nitrogen [Mass/Vol] 40.0 mg/dL Critically high 7.0-18.0 [facility] Comment on above: Performed By: #### B MP ####[facility] Xxpsoralpk[address] [place] [address]Dr. Selenaneil Deuce Urea nitrogen/Creatinine [Mass ratio] 27.8 mg/mg Normal [facility] Comment on above: Performed By: #### B MP ####[facility] Fkutuuuubg[address] [place] [id number]. Airam Tripathi Anion gap [Moles/Vol] 10.6 mmol/L Normal [facility] Comment on above: Performed By: #### B MP ####[facility] Pxittbphcj25[address] [place] [id number]. Airam Tripathi Calcium [Mass/Vol] 7.9 mg/dL Critically low 8.5-10.1 [facility] Comment on above: Performed By: #### B MP ####[facility] Rxmdtxpsba[address] [place], [place] [address]Dr. Airam Tripathi Chloride [Moles/Vol] 101 mmol/L Normal 98-107 [facility] Comment on above: Performed By: #### B MP ####[facility] Osxwfqcwpo[address] [place], [place] [address]Dr. Airam Tripathi CO2 [Moles/Vol] 27.4 mmol/L Normal 21.0-32.0 [facility] Comment on above: Performed By: #### B MP ####[facility] Uenseduujm[address] [place], [place] [address]Dr. Airam Tripathi Creatinine [Mass/Vol] 1.35 mg/dL Critically high 0.55-1.02 [facility] Comment on above: Performed By: #### B MP ####[facility] Qkmrzqgdag34[address] [place] [id number]. Airam Tripathi EGFR-AF MALAGASY 48 mL/min/1.73m2 Critically low >=60 [facility] Comment on above: Performed By: #### B MP ####[facility] Fgjubufeae[address] [place] [address]Dr. Airam Tripathi EGFR-NON AF MALAGASY 40 mL/min/1.73m2 Critically low >=60 [facility] Comment on above: Performed By: #### B MP ####[facility] Bdbryxxxau[address] [place] [address]Dr. Selenaneil Tripathi Glucose [Mass/Vol] 114 mg/dL Critically high 74-106 [facility] Comment on above: Performed By: #### B MP ####[facility] Nqhnrzerpc08[address] [place] [address]Dr. Airam Tripathi Potassium [Moles/Vol] 5.0 mmol/L Normal 3.5-5.1 [facility] Comment on above: Performed By: #### B MP ####[facility] Avssqijsjs[address] [place], [place] [address]Dr. Airam Tripathi Sodium [Moles/Vol] 134 mmol/L Critically low 136-145 [facility] Comment on above: Performed By: #### B MP ####[facility] Lownhhrufl[address] [place], [place] [address]Dr. Airam Tripathi Urea nitrogen [Mass/Vol] 40.0 mg/dL Critically high 7.0-18.0 [facility] Comment on above: Performed By: #### B MP ####[facility] Xgxjtpitew[address] [place], [place] [address]Dr. Airam Tripathi Urea nitrogen/Creatinine [Mass ratio] 29.6 mg/mg Normal [facility] Comment on above: Performed By: #### B MP ####[facility] Cqyfvsctnv[address] [place], [place] [address]Dr. Airam Tripathi PTH INTACTon 09-20-2022 PTH, Intact 104 pg/mL Critically high 15-65 [facility] Comment on above: Performed By: #### P THINT ####[facility] Fqxioxcnuf[address] [place], [place] [address]Dr. Airam Tripathi BNPon 09-19-2022 Natriuretic peptide B (Bld) [Mass/Vol] 1272.0 pg/mL Critically high <=900.0 [facility] Comment on above: Performed By: #### H STROPN, TSH, K, BNP ####[facility] Wlpxafiptb[address] [place], [place] [address]Dr. Airam Deuce CBC AUTO DIFFon 09-19-2022 BASO # 0.0 103/ul Normal 0.0-0.1 [facility] Comment on above: Performed By: #### C BC ####[facility] Vzoabehnvs[address] [place] [address]Dr. Airam Tripathi Basophils/100 WBC (Bld) 0.5 % Normal 0.2-2.0 [facility] Comment on above: Performed By: #### C BC ####[facility] Bzlbtdknlo[address] [place] [address]Dr. Airam Deuce EO # 0.2 103/ul Normal 0.0-0.7 [facility] Comment on above: Performed By: #### C BC ####[facility] Rlqbsusrhe350[address] [place] [address]Dr. Airam Deuce Eosinophils/100 WBC (Bld) 2.6 % Normal 0.9-7.0 [facility] Comment on above: Performed By: #### C BC ####[facility] Yxdlfogfiu04[address] [place] [address]Dr. Airam Tripathi Erythrocyte distribution width (RBC) [Ratio] 15.5 % Critically high 11.0-15.0 [facility] Comment on above: Performed By: #### C BC ####[facility] Cfabmdwnth[address] [place] [address]Dr. Airam Tripathi Hematocrit (Bld) [Volume fraction] 31.1 % Critically low 36.0-48.0 [facility] Comment on above: Performed By: #### C BC ####[facility] Iftlgqpkdz93[address] [place] [address]Dr. Airam Tripathi Hemoglobin (Bld) [Mass/Vol] 9.6 g/dL Critically low 12.0-16.0 [facility] Comment on above: Performed By: #### C BC ####[facility] Dpzmppnywa39[address] [place] [address]Dr. Airam Tripathi IG # 0.04 10e3/ul Critically high 0.00-0.03 [facility] Comment on above: Performed By: #### C BC ####[facility] Pjyoqdgthv6606 [place], [place] [address]Am. Airam Tripathi IG % 0.5 % Normal 0.0-0.5 [facility] Comment on above: Performed By: #### C BC ####[facility] Sxwnkvtvtu6682 [place], [place] [address]Gn. Airam Tripathi LYMPH # 1.0 103/ul Critically low 1.2-3.8 [facility] Comment on above: Performed By: #### C BC ####[facility] Jlezcfpbwg63[address] [place] [id number]. Airam Tripathi Lymphocytes/100 WBC (Bld) 12.0 % Critically low 20.5-60.0 [facility] Comment on above: Performed By: #### C BC ####[facility] [address]llzlotkew[address] [place] [phone]. Airam Tripathi MANUAL DIFF REQ NO Normal [facility] Comment on above: Performed By: #### C BC ####[facility] Okqoydgrud[address] [place] [phone]. Airam Tripathi MCH (RBC) [Entitic mass] 28.2 pg Normal 26.7-34.0 [facility] Comment on above: Performed By: #### C BC ####[facility] Blbqppnbiq85[address] [place] [id number]. Airam Tripathi MCHC (RBC) [Mass/Vol] 30.9 g/dL Normal 29.9-35.2 [facility] Comment on above: Performed By: #### C BC ####[facility] Obolshqcow4[address] [place] [phone]. Airam Tripathi MCV (RBC) [Entitic vol] 91.5 fL Normal 81.0-99.0 [facility] Comment on above: Performed By: #### C BC ####[facility] Ggtkwpfvku[address] [place] [id number]. Airam Tripathi MONO # 0.5 103/ul Normal 0.3-0.8 [facility] Comment on above: Performed By: #### C BC ####[facility] Ytzbkeacfd4[address] [place] [id number]. Airam Tripathi Monocytes/100 WBC (Bld) 6.4 % Normal 1.7-12.0 [facility] Comment on above: Performed By: #### C BC ####[facility] Rjzxhnyxio[address] [place] [id number]. Airam Tripathi NEUT # 6.4 103/ul Normal 1.4-6.5 [facility] Comment on above: Performed By: #### C BC ####[facility] Cxxgxbxudo15[address] [place] [phone]. Airam Tripathi Neutrophils/100 WBC (Bld) 78.0 % Critically high 43.0-75.0 [facility] Comment on above: Performed By: #### C BC ####[facility] Xhyiwakseq[address] [place] [address]Dr. Airam Tripathi Platelet mean volume (Bld) [Entitic vol] 9.1 fL Critically low 9.5-13.5 [facility] Comment on above: Performed By: #### C BC ####[facility] Bigpkeuwek[address] [place] [phone]. Airam Tripathi PLT 318 103/ul Normal 150-450 [facility] Comment on above: Performed By: #### C BC ####[facility] Bcjdpowxca13[address] [place] [phone]. Airam Tripathi RBC 3.40 106/ul Critically low 4.20-5.40 [facility] Comment on above: Performed By: #### C BC ####[facility] Gvkucfaczu[address] [place], [place] [address]Dr. Airam Tripathi WBC 8.2 103/ul Normal 4.0-11.0 [facility] Comment on above: Performed By: #### C BC ####[facility] Kcledtminr[address] [place], [place] [address]Dr. Airam Tripathi Covid-19 PCR (CVDTB)on 08-25 SARS-CoV-2 (COVID-19) RNA MIKE+probe Ql (Unsp spec) Not detected Normal NOT DETECTED [facility] Comment on above: Result Comment: When diagnostic [...] for this test is supported by the [place] of [employer] and Human Service's declaration that [...] be used). Performed By: #### C VDTBH ####[facility] Czqeodnhpm[address] [place], [place] [address]Dr. Airam Tripathi LACTATE/LACTIC ACIDon 2022 Lactate [Moles/Vol] 0.4 mmol/L Normal 0.4-2.0 [facility] Comment on above: Performed By: #### L ACT ####[facility] Ufdeapmoce[address] [place], [place] [address]Dr. Airam Tripathi POTASSIUMon 09-19-2022 Potassium [Moles/Vol] 6.3 mmol/L Critically high 3.5-5.1 [facility] Comment on above: Performed By: #### H STROPN, TSH, K, BNP ####[facility] Qqddmpqaxa[address] [place], [place] [address]Dr. Airam Tripathi PROF 14(COMP METB)on 023 Albumin [Mass/Vol] 3.5 g/dL Normal 3.4-5.0 [facility] Comment on above: Performed By: #### C MP ####[facility] Nbpxkvzdsv[address] [place], [place] [address]Dr. Airam Tripathi Albumin/Globulin [Mass ratio] 1.1 {ratio} Normal [facility] Comment on above: Performed By: #### C MP ####[facility] Ntwheovdzk033[address] [place] [phone]. Airam Tripathi ALP [Catalytic activity/Vol] 113 U/L Normal 46-116 [facility] Comment on above: Performed By: #### C MP ####[facility] Zvbvjwxxiz1444 [place] [phone]. Airam Tripathi ALT [Catalytic activity/Vol] 26 U/L Normal 14-59 [facility] Comment on above: Performed By: #### C MP ####[facility] Zowokgvdbu7[address] [place] [phone]. Airam Tripathi Anion gap [Moles/Vol] 11.5 mmol/L Normal [facility] Comment on above: Performed By: #### C MP ####[facility] [address]lbrcxerww[address] [place], [place] [address]Dr. Airam Tripathi AST [Catalytic activity/Vol] 24 U/L Normal 15-37 [facility] Comment on above: Performed By: #### C MP ####[facility] S[address]aknozfk[address] [place], [place] [address]Dr. Airam Tripathi Bilirubin [Mass/Vol] 0.3 mg/dL Normal 0.2-1.0 [facility] Comment on above: Performed By: #### C MP ####[facility] [address]qfjicucop[address] [place], [place] [address]Dr. Airam Tripathi Calcium [Mass/Vol] 8.9 mg/dL Normal 8.5-10.1 [facility] Comment on above: Performed By: #### C MP ####[facility] Hnzhpgbdzn2870 [place] [address]Dr. Airam Tripathi Chloride [Moles/Vol] 103 mmol/L Normal 98-107 [facility] Comment on above: Performed By: #### C MP ####[facility] Bwzntzemrl99[address] [place] [address]Dr. Airam Tripathi CO2 [Moles/Vol] 27.8 mmol/L Normal 21.0-32.0 [facility] Comment on above: Performed By: #### C MP ####[facility] Pahzuuogym[address] [place] [phone]. iAram Tripathi Creatinine [Mass/Vol] 1.28 mg/dL Critically high 0.55-1.02 [facility] Comment on above: Performed By: #### C MP ####[facility] Hznwspfpny4549 [place] [phone]. Airam Tripathi EGFR-AF MALAGASY 52 mL/min/1.73m2 Critically low >=60 [facility] Comment on above: Performed By: #### C MP ####[facility] Wlbpujszgl33[address] [place] [phone]. Airam Tripathi EGFR-NON AF MALAGASY 43 mL/min/1.73m2 Critically low >=60 [facility] Comment on above: Performed By: #### C MP ####[facility] Glojokfhru[address] [place] [address]Dr. Airam Tripathi Globulin (S) [Mass/Vol] 3.2 g/dL Normal [facility] Comment on above: Performed By: #### C MP ####[facility] Worckiovxq5874 [place] [phone]. Airam Tripathi Glucose [Mass/Vol] 95 mg/dL Normal 74-106 [facility] Comment on above: Performed By: #### C MP ####[facility] Frlbyllnel6208 [place] [address]Dr. Airam Tripathi Potassium [Moles/Vol] 6.3 mmol/L Critically high 3.5-5.1 [facility] Comment on above: Performed By: #### C MP ####[facility] Yoxejrnauh232[address] [place] [phone]. Airam Tripathi Protein [Mass/Vol] 6.7 g/dL Normal 6.4-8.2 [facility] Comment on above: Performed By: #### C MP ####[facility] Ysmyxteyxy17[address] [place] [address]Dr. Airam Tripathi Sodium [Moles/Vol] 135 mmol/L Critically low 136-145 [facility] Comment on above: Performed By: #### C MP ####[facility] Tnuccqlnkd7501 [place] [address]Dr. Airam Tripathi Urea nitrogen [Mass/Vol] 42.0 mg/dL Critically high 7.0-18.0 [facility] Comment on above: Performed By: #### C MP ####[facility] Spzagiqlef5[address] [place] [address]Dr. Airam Tripathi Urea nitrogen/Creatinine [Mass ratio] 32.8 mg/mg Normal [facility] Comment on above: Performed By: #### C MP ####[facility] Inhwgflehh[address] [place], [place] [address]Dr. Airam Tripathi TROPONIN, HIGH SENSITIVITYon 09-19-2022 HSTROP 7.1 pg/mL Normal 4.0-51.3 [facility] Comment on above: Result Comment: CUT- OFF POINTS HAVE BEEN ESTABLISHED BASED ON THE FOURTH UNIVERSAL DEFINITIONS OF MYOCARDIALINFARCTION. THE UPPER REFERENCE LIMIT (URL) OF TROPONIN, DEFINED THE 99TH PERCENTILE OFcTnI DISTRIBUTION IN A REFERENCE POPULATION, HAS BEEN CONFIRMED THE DECISION THRESHOLDFOR MA DIAGNOSIS. Performed By: #### H STROPN, TSH, K, BNP ####[facility] Urojpegnqa[address] [place] [address]Dr. Airam Tripathi TSHon 09-19-2022 TSH 0.028 uIU/mL Critically low 0.358-3.74 0 [facility] Comment on above: Performed By: #### H STROPN, TSH, K, BNP ####[facility] Qameoleorg[address]99 [place] [address]Dr. Airam Tripathi UA RANDOMon 09-19-2022 Bilirubin Ql (U) Negative Normal NEGATIVE [facility] Comment on above: Performed By: #### U A ####[facility] Lwwlmddlkx2160 [place] [address]Dr. Airam eDuce Clarity (U) CLEAR Normal CLEAR [facility] Comment on above: Performed By: #### U A ####[facility] Vbszuujisc9814 [place] [address]Dr. Airam Deuce Color (U) LT. YELLOW Normal YELLOW [facility] Comment on above: Performed By: #### U A ####[facility] Dhuwgmaerf27[address] [place] [address]Dr. Airam Tripathi Glucose Ql (U) Negative Normal NEGATIVE [facility] Comment on above: Performed By: #### U A ####[facility] Oxwgzytkov[address] [place], [place] [address]Dr. Airam Tripathi Hemoglobin Ql (U) Negative Normal NEGATIVE [facility] Comment on above: Performed By: #### U A ####[facility] Vcntlkxtjj[address] [place], [place] [address]Dr. Airam Tripathi Ketones Ql (U) Negative Normal NEGATIVE [facility] Comment on above: Performed By: #### U A ####[facility] Qjjllwghyg[address] [place], [place] [address]Dr. Airam Tripathi LEUKOCYTES TRACE Abnormal NEGATIVE [facility] Comment on above: Performed By: #### U A ####[facility] Ivfxlcpvts[address] [place], [place] [address]Dr. Airam Tripathi Nitrite Ql (U) Negative Normal NEGATIVE [facility] Comment on above: Performed By: #### U A ####[facility] Dcxrpzqrae[address] [place], [place] [address]Dr. Airam Tripathi pH (U) 5.5 [pH] Normal 5-9 [facility] Comment on above: Performed By: #### U A ####[facility] Gaxdzperax[address] [place], [place] [address]Dr. Airam Tripathi SPEC GRAVITY 1.010 Normal 1.005-<=1. 025 [facility] Comment on above: Performed By: #### U A ####[facility] Bsqcnjkzmc[address] [place], [place] [address]Dr. Airam Tripathi UA PROTEIN Negative Normal NEGATIVE/ TRACE [facility] Comment on above: Performed By: #### U A ####[facility] Mlhcurkall[address] [place], [place] [address]Dr. Airam Tripathi Urobilinogen Qn (U) 0.2 {Ligia'U}/dL Normal 0.2 - 1. 0 [facility] Comment on above: Performed By: #### U A ####[facility] Brgjkqraxw6164 [place] [address]Dr. Airam Tripathi URIC ACID SERUMon 09-19-2022 Urate [Mass/Vol] 6.9 mg/dL Critically high 2.6-6.0 [facility] Comment on above: Performed By: #### U TRESSA ####[facility] Jfwazorvjf[address] [place] [address]Dr. Airam Tripathi URINE T PROTEIN CREAT RATIOo n 09-19-2022 UR TOTAL PROTEIN <6.0 Normal <=12.0 [facility] Comment on above: Performed By: #### U RTPCR ####[facility] Mydktqqjcw[address] [place], [place] [address]Dr. Airam Tripathi URINE CREAT 15.12 mg/dL Critically low 20.00-300. 00 [facility] Comment on above: Performed By: #### U RTPCR ####[facility] [address]zgujmwcio[address] [place], [place] [address]Dr. Airam Tripathi VITAMIN D 25 OHon 09-19-2022 VIT D 25-OH 75.9 ng/mL Normal [facility] Comment on above: Performed By: #### V ITAD ####[facility] Nceufofhpo[address] [place], [place] [address]Dr. Airam Tripathi VIT D RANGES SEE BELOW Normal [facility] Comment on above: Result Comment: <20 ng/mL Vit D deficient 20 - <30 ng/mL Vit D insufficient 30 - 100 ng/mL Vit D sufficient >100 ng/mL Potential Toxicity Performed By: #### V ITAD ####[facility] Fitbpnidjm[address] [place], [place] [address]Dr. Airam Tripathi OSMOLALITYon 09-14-2022 Osmolality [Osmolality] 272 mosm/kg Critically low 275-295 [facility] Comment on above: Performed By: #### O SMO ####[facility] Gzqtohmizi[address] [place], [place] [address]Dr. Airam Tripathi CBC AUTO DIFFon 09-12-2022 BASO # 0.0 103/ul Normal 0.0-0.1 [facility] Comment on above: Performed By: #### C BC ####[facility] Bcggvhpcyr1752 [place] [phone]. Airam Tripathi Basophils/100 WBC (Bld) 0.5 % Normal 0.2-2.0 [facility] Comment on above: Performed By: #### C BC ####[facility] Tnvkkjcejp[address] [place], [place] [address]Dr. Airam Tripathi EO # 0.2 103/ul Normal 0.0-0.7 [facility] Comment on above: Performed By: #### C BC ####[facility] Rruktpavgo[address] [place], [place] [address]Dr. Airam Tripathi Eosinophils/100 WBC (Bld) 2.4 % Normal 0.9-7.0 [facility] Comment on above: Performed By: #### C BC ####[facility] Azsulmrxxt[address] [place], [place] [address]Dr. Airam Tripathi Erythrocyte distribution width (RBC) [Ratio] 14.8 % Normal 11.0-15.0 [facility] Comment on above: Performed By: #### C BC ####[facility] Uwowxqekvc[address] [place], [place] [address]Dr. Airam Tripathi Hematocrit (Bld) [Volume fraction] 32.6 % Critically low 36.0-48.0 [facility] Comment on above: Performed By: #### C BC ####[facility] Ivbmvmufws[address] [place], [place] [address]Dr. Airam Tripathi Hemoglobin (Bld) [Mass/Vol] 10.1 g/dL Critically low 12.0-16.0 [facility] Comment on above: Performed By: #### C BC ####[facility] Jaeyuxpcim[address] [place], [place] [address]Dr. Airam Tripathi IG # 0.05 10e3/ul Critically high 0.00-0.03 [facility] Comment on above: Performed By: #### C BC ####[facility] Ujpvcmrmhr[address] [place], [place] [address]Dr. Airam Tripathi IG % 0.7 % Critically high 0.0-0.5 [facility] Comment on above: Performed By: #### C BC ####[facility] Fuuxeijnlb3632 [place] [phone]. Airam Tripathi LYMPH # 1.9 103/ul Normal 1.2-3.8 [facility] Comment on above: Performed By: #### C BC ####[facility] Vfwjsthxoo5751 [place] [phone]. Airam Tripathi Lymphocytes/100 WBC (Bld) 24.7 % Normal 20.5-60.0 [facility] Comment on above: Performed By: #### C BC ####[facility] Karameoxor4191 [place] [address]Dr. Airam Tripathi MANUAL DIFF REQ NO Normal [facility] Comment on above: Performed By: #### C BC ####[facility] Rhdziuxkmo[address] [place] [address]Dr. Airam Deuce MCH (RBC) [Entitic mass] 28.0 pg Normal 26.7-34.0 [facility] Comment on above: Performed By: #### C BC ####[facility] [address]mpqruyrru[address] [place], [place] [address]Dr. Airam Tripathi MCHC (RBC) [Mass/Vol] 31.0 g/dL Normal 29.9-35.2 [facility] Comment on above: Performed By: #### C BC ####[facility] Gzmooxjvni7[address] [place] [address]Dr. Airam Tripathi MCV (RBC) [Entitic vol] 90.3 fL Normal 81.0-99.0 [facility] Comment on above: Performed By: #### C BC ####[facility] Pdbompafdr57[address] [place] [address]Dr. Airam Tripathi MONO # 0.5 103/ul Normal 0.3-0.8 [facility] Comment on above: Performed By: #### C BC ####[facility] [address]affuixgyo[address] [place], [place] [address]Dr. Airam Deuce Monocytes/100 WBC (Bld) 6.0 % Normal 1.7-12.0 [facility] Comment on above: Performed By: #### C BC ####[facility] Qmyghqzazp20[address] [place] [id number]. Airam Tripathi NEUT # 5.0 103/ul Normal 1.4-6.5 [facility] Comment on above: Performed By: #### C BC ####[facility] Gdpzgblgnp0057 [place] [id number]. Airam Tripathi Neutrophils/100 WBC (Bld) 65.7 % Normal 43.0-75.0 [facility] Comment on above: Performed By: #### C BC ####[facility] Tmdweqigtf[address]686 [place] [id number]. Airam Tripathi Platelet mean volume (Bld) [Entitic vol] 9.5 fL Normal 9.5-13.5 [facility] Comment on above: Performed By: #### C BC ####[facility] Hlvdnphjar7[address] [place] [id number]. Airam Tripathi PLT 307 103/ul Normal 150-450 [facility] Comment on above: Performed By: #### C BC ####[facility] Tzpwdrwxab7975 [place] [id number]. Airam Tripathi RBC 3.61 106/ul Critically low 4.20-5.40 [facility] Comment on above: Performed By: #### C BC ####[facility] Abfahqkoce5[address] [place] [id number]. Airam Tripathi WBC 7.5 103/ul Normal 4.0-11.0 [facility] Comment on above: Performed By: #### C BC ####[facility] Wjhccgsyxj3466 [place] [phone]. Airam Deuce PROF 14(COMP METB)on 023 Albumin [Mass/Vol] 3.5 g/dL Normal 3.4-5.0 [facility] Comment on above: Performed By: #### C MP ####[facility] [address]dw[address]uxt[address] [place] [id number]. Airam Duece Albumin/Globulin [Mass ratio] 1.1 {ratio} Normal [facility] Comment on above: Performed By: #### C MP ####[facility] [address] [place] [id number]. Airam Tripathi ALP [Catalytic activity/Vol] 126 U/L Critically high 46-116 [facility] Comment on above: Performed By: #### C MP ####[facility] Ahhtuzjlcl4[address] [place] [id number]. Airam Tripathi ALT [Catalytic activity/Vol] 18 U/L Normal 14-59 [facility] Comment on above: Performed By: #### C MP ####[facility] Vcmbxnjrpy[address] [place] [address]Dr. Airam Tripathi Anion gap [Moles/Vol] 11.1 mmol/L Normal [facility] Comment on above: Performed By: #### C MP ####[facility] Ishsksdczd[address] [place], [place] [address]Dr. Airam Tripathi AST [Catalytic activity/Vol] 26 U/L Normal 15-37 [facility] Comment on above: Performed By: #### C MP ####[facility] Cvqcagqydx[address] [place], [place] [address]Dr. Airam Tripathi Bilirubin [Mass/Vol] 0.3 mg/dL Normal 0.2-1.0 [facility] Comment on above: Performed By: #### C MP ####[facility] Tvpfehngap[address] [place], [place] [address]Dr. Airam Tripathi Calcium [Mass/Vol] 8.5 mg/dL Normal 8.5-10.1 [facility] Comment on above: Performed By: #### C MP ####[facility] Lhdthzpgni[address] [place] [address]Dr. Airam Tripathi Chloride [Moles/Vol] 98 mmol/L Normal 98-107 [facility] Comment on above: Performed By: #### C MP ####[facility] Nbtxtablli[address] [place], [place] [address]Dr. Airam Tripathi CO2 [Moles/Vol] 23.9 mmol/L Normal 21.0-32.0 [facility] Comment on above: Performed By: #### C MP ####[facility] Whwcuwcxfu[address] [place] [id number]. Airam Tripathi Creatinine [Mass/Vol] 1.40 mg/dL Critically high 0.55-1.02 [facility] Comment on above: Performed By: #### C MP ####[facility] Bxgdtgxzpz[address] [place] [id number]. Airam Tripathi EGFR-AF MALAGASY 46 mL/min/1.73m2 Critically low >=60 [facility] Comment on above: Performed By: #### C MP ####[facility] Nedwvalwad[address] [place] [id number]. Airam Tripathi EGFR-NON AF MALAGASY 38 mL/min/1.73m2 Critically low >=60 [facility] Comment on above: Performed By: #### C MP ####[facility] Snhkrldnsy[address] [place] [address]Dr. Airam Tripathi Globulin (S) [Mass/Vol] 3.3 g/dL Normal [facility] Comment on above: Performed By: #### C MP ####[facility] Mprwnkwted14[address] [place] [address]Dr. Airam Tripathi Glucose [Mass/Vol] 72 mg/dL Critically low 74-106 [facility] Comment on above: Performed By: #### C MP ####[facility] Cmxqkmrabb57[address] [place] [address]Dr. Airam Tripathi Potassium [Moles/Vol] 5.0 mmol/L Normal 3.5-5.1 [facility] Comment on above: Performed By: #### C MP ####[facility] Yoyvhacgdb20[address] [place] [address]Dr. Airam Tripathi Protein [Mass/Vol] 6.8 g/dL Normal 6.4-8.2 [facility] Comment on above: Performed By: #### C MP ####[facility] Mgztdwxilr3[address] [place] [address]Dr. Airam Tripathi Sodium [Moles/Vol] 128 mmol/L Critically low 136-145 [facility] Comment on above: Performed By: #### C MP ####[facility] Rdphzyrwbw9[address] [place], [place] [address]Dr. Airam Tripathi Urea nitrogen [Mass/Vol] 27.0 mg/dL Critically high 7.0-18.0 [facility] Comment on above: Performed By: #### C MP ####[facility] Actehihuyu25[address] [place], [place] [address]Dr. Airam Tripathi Urea nitrogen/Creatinine [Mass ratio] 19.3 mg/mg Normal [facility] Comment on above: Performed By: #### C MP ####[facility] Bdrznohzjb[address] [place], [place] [address]Dr. Airam Tripathi OSMOLALITYon 09-10-2022 Osmolality [Osmolality] 275 mosm/kg Normal 275-295 [facility] Comment on above: Performed By: #### O SMO ####[facility] Dmnbppyczl8[address] [place], [place] [address]Dr. Airam Tripathi CBC AUTO DIFFon 09-08-2022 BASO # 0.0 103/ul Normal 0.0-0.1 [facility] Comment on above: Performed By: #### C BC ####[facility] Rygzpidadj[address] [place], [place] [address]Dr. Airam Tripathi Basophils/100 WBC (Bld) 0.5 % Normal 0.2-2.0 [facility] Comment on above: Performed By: #### C BC ####[facility] Mxhufuvemd83[address] [place], [place] [address]Dr. Airam Tripathi EO # 0.1 103/ul Normal 0.0-0.7 [facility] Comment on above: Performed By: #### C BC ####[facility] Bwluwsxicm[address] [place], [place] [address]Dr. Airam Tripathi Eosinophils/100 WBC (Bld) 1.7 % Normal 0.9-7.0 [facility] Comment on above: Performed By: #### C BC ####[facility] Zppudahove9[address] [place], [place] [address]Dr. Airam Tripathi Erythrocyte distribution width (RBC) [Ratio] 14.7 % Normal 11.0-15.0 [facility] Comment on above: Performed By: #### C BC ####[facility] Rscnrmraot7[address] [place] [address]Dr. Selenaneil Tripathi Hematocrit (Bld) [Volume fraction] 30.3 % Critically low 36.0-48.0 [facility] Comment on above: Performed By: #### C BC ####[facility] Rvkkzlcscl[address] [place], [place] [address]Dr. Airam Tripathi Hemoglobin (Bld) [Mass/Vol] 9.3 g/dL Critically low 12.0-16.0 [facility] Comment on above: Performed By: #### C BC ####[facility] Gzdezgcydy[address] [place], [place] [address]Dr. Airam Tripathi IG # 0.03 10e3/ul Normal 0.00-0.03 [facility] Comment on above: Performed By: #### C BC ####[facility] Snjjpafdiz[address] [place], [place] [address]Dr. Airam Tripathi IG % 0.5 % Normal 0.0-0.5 [facility] Comment on above: Performed By: #### C BC ####[facility] Iwipabpugi359[address] [place], [place] [address]Dr. Airam Tripathi LYMPH # 0.9 103/ul Critically low 1.2-3.8 [facility] Comment on above: Performed By: #### C BC ####[facility] Gjvbcmjopz[address] [place], [place] [address]Dr. Airam Tripathi Lymphocytes/100 WBC (Bld) 13.6 % Critically low 20.5-60.0 [facility] Comment on above: Performed By: #### C BC ####[facility] Yznjbhdwwv[address] [place], [place] [address]Dr. Airam Tripathi MANUAL DIFF REQ NO Normal [facility] Comment on above: Performed By: #### C BC ####[facility] Lokfamnekh[address] [place], [place] [address]Dr. Airam Tripathi MCH (RBC) [Entitic mass] 27.4 pg Normal 26.7-34.0 [facility] Comment on above: Performed By: #### C BC ####[facility] Ckjeiosfru[address] [place] [id number]. Airam Deuce MCHC (RBC) [Mass/Vol] 30.7 g/dL Normal 29.9-35.2 [facility] Comment on above: Performed By: #### C BC ####[facility] Xyytvvuivk8066 [place] [id number]. Airam Tripathi MCV (RBC) [Entitic vol] 89.4 fL Normal 81.0-99.0 [facility] Comment on above: Performed By: #### C BC ####[facility] Smyvpxxrhi[address] [place], [place] [address]Dr. Airam Tripathi MONO # 0.5 103/ul Normal 0.3-0.8 [facility] Comment on above: Performed By: #### C BC ####[facility] Vcnmkfpmft[address] [place], [place] [address]Dr. Airam Tripathi Monocytes/100 WBC (Bld) 8.0 % Normal 1.7-12.0 [facility] Comment on above: Performed By: #### C BC ####[facility] Nnlppnsyvt[address] [place], [place] [address]Dr. Selenaneil Tripathi NEUT # 5.0 103/ul Normal 1.4-6.5 [facility] Comment on above: Performed By: #### C BC ####[facility] Zjcpnfdlrf[address] [place], [place] [address]Dr. Airam Tripathi Neutrophils/100 WBC (Bld) 75.7 % Critically high 43.0-75.0 [facility] Comment on above: Performed By: #### C BC ####[facility] Kilsrrtqjg[address] [place], [place] [address]Dr. Airam Tripathi Platelet mean volume (Bld) [Entitic vol] 10.4 fL Normal 9.5-13.5 [facility] Comment on above: Performed By: #### C BC ####[facility] Lbatpkjgzf[address] [place], [place] [address]Dr. Airam Tripathi PLT 315 103/ul Normal 150-450 [facility] Comment on above: Performed By: #### C BC ####[facility] Wdhwudshye5[address] [place] [id number]. Airam Tripathi RBC 3.39 106/ul Critically low 4.20-5.40 [facility] Comment on above: Performed By: #### C BC ####[facility] Yfedunwkgk6148 [place] [id number]. Airam Tripathi WBC 6.5 103/ul Normal 4.0-11.0 [facility] Comment on above: Performed By: #### C BC ####[facility] Fnowhrpoem[address] [place] [address]Dr. Airam Tripathi PROF 14(COMP METB)on 023 Albumin [Mass/Vol] 3.1 g/dL Critically low 3.4-5.0 [facility] Comment on above: Performed By: #### C MP ####[facility] Tgbvxrolqf0784 [place] [address]Dr. Airam Tripathi Albumin/Globulin [Mass ratio] 1.0 {ratio} Normal [facility] Comment on above: Performed By: #### C MP ####[facility] Prytafhixc[address] [place] [address]Dr. Airam Tripathi ALP [Catalytic activity/Vol] 126 U/L Critically high 46-116 [facility] Comment on above: Performed By: #### C MP ####[facility] Zpdrudvqyl8027 [place] [address]Dr. Airam Tripathi ALT [Catalytic activity/Vol] 18 U/L Normal 14-59 [facility] Comment on above: Performed By: #### C MP ####[facility] Sshbnfpplj0042 [place] [address]Dr. Airam Tripathi Anion gap [Moles/Vol] 11.4 mmol/L Normal [facility] Comment on above: Performed By: #### C MP ####[facility] Chsnhxnsof65[address] [place] [address]Dr. Airam Tripathi AST [Catalytic activity/Vol] 25 U/L Normal 15-37 [facility] Comment on above: Performed By: #### C MP ####[facility] Pvesreandj[address] [place] [id number]. Airam Tripathi Bilirubin [Mass/Vol] 0.3 mg/dL Normal 0.2-1.0 [facility] Comment on above: Performed By: #### C MP ####[facility] Amgpbrvorc3774 [place] [id number]. Airam Tripathi Calcium [Mass/Vol] 8.6 mg/dL Normal 8.5-10.1 [facility] Comment on above: Performed By: #### C MP ####[facility] Igdbjbmfgq8944 [place] [id number]. Airam Tripathi Chloride [Moles/Vol] 97 mmol/L Critically low 98-107 [facility] Comment on above: Performed By: #### C MP ####[facility] Fdgxbdhbqf[address] [place], [place] [address]Dr. Airam Tripathi CO2 [Moles/Vol] 26.1 mmol/L Normal 21.0-32.0 [facility] Comment on above: Performed By: #### C MP ####[facility] Lxeizezojv[address] [place], [place] [address]Dr. Airam Tripathi Creatinine [Mass/Vol] 1.07 mg/dL Critically high 0.55-1.02 [facility] Comment on above: Performed By: #### C MP ####[facility] Xpglmpmhnb4892 [place] [address]Dr. Airam Deuce EGFR-AF MALAGASY >60 Normal >=60 [facility] Comment on above: Performed By: #### C MP ####[facility] Zukudntzhm[address] [place], [place] [address]Dr. Airam Deuce EGFR-NON AF MALAGASY 52 mL/min/1.73m2 Critically low >=60 [facility] Comment on above: Performed By: #### C MP ####[facility] Krjxgpmcez[address] [place], [place] [address]Dr. Airam Deuce Globulin (S) [Mass/Vol] 3.2 g/dL Normal [facility] Comment on above: Performed By: #### C MP ####[facility] Ilseawzpuc[address] [place] [address]Dr. Airam Tripathi Glucose [Mass/Vol] 83 mg/dL Normal 74-106 [facility] Comment on above: Performed By: #### C MP ####[facility] Gvdwongmde0703 [place] [address]Dr. Airam Tripathi Potassium [Moles/Vol] 5.5 mmol/L Critically high 3.5-5.1 [facility] Comment on above: Performed By: #### C MP ####[facility] Irjokkafup[address] [place], [place] [address]Dr. Airam Tripathi Protein [Mass/Vol] 6.3 g/dL Critically low 6.4-8.2 [facility] Comment on above: Performed By: #### C MP ####[facility] Jacflbhapv[address] [place] [address]Dr. Airam Tripathi Sodium [Moles/Vol] 129 mmol/L Critically low 136-145 [facility] Comment on above: Performed By: #### C MP ####[facility] Vrahzylsxq93[address] [place], [place] [address]Dr. Airam Tripathi Urea nitrogen [Mass/Vol] 37.0 mg/dL Critically high 7.0-18.0 [facility] Comment on above: Performed By: #### C MP ####[facility] Ulmmtpsmui91[address] [place], [place] [address]Dr. Airam Tripathi Urea nitrogen/Creatinine [Mass ratio] 34.6 mg/mg Normal [facility] Comment on above: Performed By: #### C MP ####[facility] Pvaarmnqut497[address] [place], [place] [address]Dr. Airam Tripathi OSMOLALITYon 09-02-2022 Osmolality [Osmolality] 279 mosm/kg Normal 275-295 [facility] Comment on above: Performed By: #### O SMO ####[facility] Bnkbbphuvq424[address] [place], [place] [address]Dr. Airam Triptahi CBC AUTO DIFFon 08-31-2022 BASO # 0.0 103/ul Normal 0.0-0.1 [facility] Comment on above: Performed By: #### C BC ####[facility] Kxxqikgzts40[address] [place] [id number]. Airam Tripathi Basophils/100 WBC (Bld) 0.4 % Normal 0.2-2.0 [facility] Comment on above: Performed By: #### C BC ####[facility] Ehqaaqdkxx[address] [place], [place] [address]Dr. Airam Tripathi EO # 0.2 103/ul Normal 0.0-0.7 [facility] Comment on above: Performed By: #### C BC ####[facility] Ljpxdfgbfq[address] [place], [place] [address]Dr. Airam Tripathi Eosinophils/100 WBC (Bld) 3.2 % Normal 0.9-7.0 [facility] Comment on above: Performed By: #### C BC ####[facility] Huaaepvbll[address] [place], [place] [address]Dr. Airam Tripathi Erythrocyte distribution width (RBC) [Ratio] 14.4 % Normal 11.0-15.0 [facility] Comment on above: Performed By: #### C BC ####[facility] Oxadayscns[address] [place], [place] [address]Dr. Airam Tripathi Hematocrit (Bld) [Volume fraction] 27.8 % Critically low 36.0-48.0 [facility] Comment on above: Performed By: #### C BC ####[facility] Rfpsvtosgr[address] [place], [place] [address]Dr. Airam Tripathi Hemoglobin (Bld) [Mass/Vol] 8.7 g/dL Critically low 12.0-16.0 [facility] Comment on above: Performed By: #### C BC ####[facility] Jgtrmdhjkg[address] [place], [place] [address]Dr. Airam Tripathi IG # 0.05 10e3/ul Critically high 0.00-0.03 [facility] Comment on above: Performed By: #### C BC ####[facility] Ignnuqmzke[address] [place], [place] [address]Dr. Airam Tripathi IG % 0.7 % Critically high 0.0-0.5 [facility] Comment on above: Performed By: #### C BC ####[facility] Gjsznfmymg[address] [place] [id number]. Airam Tripathi LYMPH # 1.7 103/ul Normal 1.2-3.8 [facility] Comment on above: Performed By: #### C BC ####[facility] Qaqayaylug1502 [place] [id number]. Airam Deuce Lymphocytes/100 WBC (Bld) 23.6 % Normal 20.5-60.0 [facility] Comment on above: Performed By: #### C BC ####[facility] Nmknifgaqn9[address] [place] [address]Dr. Selenaneil Tripathi MANUAL DIFF REQ NO Normal [facility] Comment on above: Performed By: #### C BC ####[facility] Eztfdlpreg[address] [place], [place] [address]Dr. Airam Deuce MCH (RBC) [Entitic mass] 27.8 pg Normal 26.7-34.0 [facility] Comment on above: Performed By: #### C BC ####[facility] Z[address]qdwfzcln[address] [place], [place] [address]Dr. Airam Tripathi MCHC (RBC) [Mass/Vol] 31.3 g/dL Normal 29.9-35.2 [facility] Comment on above: Performed By: #### C BC ####[facility] Rhqhmgvqsr5361 [place] [id number]. Selenaneil Tripathi MCV (RBC) [Entitic vol] 88.8 fL Normal 81.0-99.0 [facility] Comment on above: Performed By: #### C BC ####[facility] Dunyonjlrf[address] [place], [place] [address]Dr. Airam Deuce MONO # 0.5 103/ul Normal 0.3-0.8 [facility] Comment on above: Performed By: #### C BC ####[facility] Mmdchzlwod7[address] [place] [id number]. Selenaneil Tripathi Monocytes/100 WBC (Bld) 6.9 % Normal 1.7-12.0 [facility] Comment on above: Performed By: #### C BC ####[facility] Wbtbqntsad5704 [place] [id number]. Airam Tripathi NEUT # 4.7 103/ul Normal 1.4-6.5 [facility] Comment on above: Performed By: #### C BC ####[facility] Uoxgwhlbya98[address] [place] [id number]. Airam Tripathi Neutrophils/100 WBC (Bld) 65.2 % Normal 43.0-75.0 [facility] Comment on above: Performed By: #### C BC ####[facility] Ivzjhdsjnc4995 [place] [address]Dr. Airam Tripathi Platelet mean volume (Bld) [Entitic vol] 9.8 fL Normal 9.5-13.5 [facility] Comment on above: Performed By: #### C BC ####[facility] Ljmsryafes9[address] [place] [address]Dr. Airam Tripathi PLT 225 103/ul Normal 150-450 [facility] Comment on above: Performed By: #### C BC ####[facility] Htthhcgsnh[address] [place], [place] [address]Dr. Airam Tripathi RBC 3.13 106/ul Critically low 4.20-5.40 [facility] Comment on above: Performed By: #### C BC ####[facility] Cgapohfzcb[address] [place], [place] [address]Dr. Airam Tripathi WBC 7.3 103/ul Normal 4.0-11.0 [facility] Comment on above: Performed By: #### C BC ####[facility] Renmehpxen[address] [place], [place] [address]Dr. Airam Tripathi PROF 14(COMP METB)on 023 Albumin [Mass/Vol] 3.0 g/dL Critically low 3.4-5.0 [facility] Comment on above: Performed By: #### C MP ####[facility] Dvrvuvxole[address] [place], [place] [address]Dr. Airam Tripathi Albumin/Globulin [Mass ratio] 1.1 {ratio} Normal [facility] Comment on above: Performed By: #### C MP ####[facility] Mgjynusfhr2315 [place] [address]Dr. Airam Tripathi ALP [Catalytic activity/Vol] 132 U/L Critically high 46-116 [facility] Comment on above: Performed By: #### C MP ####[facility] Dogalkhpdc2766 [place] [address]Dr. Airam Tripathi ALT [Catalytic activity/Vol] 20 U/L Normal 14-59 [facility] Comment on above: Performed By: #### C MP ####[facility] Betegpqddj7025 [place] [address]Dr. Airam Tripathi Anion gap [Moles/Vol] 9.5 mmol/L Normal [facility] Comment on above: Performed By: #### C MP ####[facility] Cnjkemszmq[address] [place], [place] [address]Dr. Airam Tripathi AST [Catalytic activity/Vol] 25 U/L Normal 15-37 [facility] Comment on above: Performed By: #### C MP ####[facility] Dcnyougxae[address] [place], [place] [address]Dr. Airam Tripathi Bilirubin [Mass/Vol] 0.2 mg/dL Normal 0.2-1.0 [facility] Comment on above: Performed By: #### C MP ####[facility] Swjclpurkm[address] [place], [place] [address]Dr. Airam Tripathi Calcium [Mass/Vol] 7.9 mg/dL Critically low 8.5-10.1 [facility] Comment on above: Performed By: #### C MP ####[facility] [address]ftjfcdw[address] [place], [place] [address]Dr. Airam Tripathi Chloride [Moles/Vol] 97 mmol/L Critically low 98-107 [facility] Comment on above: Performed By: #### C MP ####[facility] Qxwdjbmslu[address] [place], [place] [address]Dr. Selenaneil Tripathi CO2 [Moles/Vol] 27.3 mmol/L Normal 21.0-32.0 [facility] Comment on above: Performed By: #### C MP ####[facility] Vttijwauij37[address] [place] [id number]. Airam Tripathi Creatinine [Mass/Vol] 1.58 mg/dL Critically high 0.55-1.02 [facility] Comment on above: Performed By: #### C MP ####[facility] Brlfmmqhnv9724 [place] [id number]. Airam Tripathi EGFR-AF MALAGASY 40 mL/min/1.73m2 Critically low >=60 [facility] Comment on above: Performed By: #### C MP ####[facility] Wnjitspnvu5814 [place] [id number]. Airam Tripathi EGFR-NON AF MALAGASY 33 mL/min/1.73m2 Critically low >=60 [facility] Comment on above: Performed By: #### C MP ####[facility] Gfhycyrheg9598 [place] [address]Dr. Airam Tripathi Globulin (S) [Mass/Vol] 2.8 g/dL Normal [facility] Comment on above: Performed By: #### C MP ####[facility] Bmplawifgy5396 [place] [id number]. Airam Tripathi Glucose [Mass/Vol] 111 mg/dL Critically high 74-106 [facility] Comment on above: Performed By: #### C MP ####[facility] Vhinrddhoy6393 [place] [id number]. Airam Tripathi Potassium [Moles/Vol] 4.8 mmol/L Normal 3.5-5.1 [facility] Comment on above: Performed By: #### C MP ####[facility] Tmuhdilgsq5661 [place] [id number]. Airam Tripathi Protein [Mass/Vol] 5.8 g/dL Critically low 6.4-8.2 [facility] Comment on above: Performed By: #### C MP ####[facility] Pnxlzomoii9748 [place] [id number]. Airam Tripathi Sodium [Moles/Vol] 129 mmol/L Critically low 136-145 [facility] Comment on above: Performed By: #### C MP ####[facility] Tongaanzfj[address] [place], [place] [address]Dr. Airam Tripathi Urea nitrogen [Mass/Vol] 44.0 mg/dL Critically high 7.0-18.0 [facility] Comment on above: Performed By: #### C MP ####[facility] Gfamdhouse[address] [place], [place] [address]Dr. Airam Tripathi Urea nitrogen/Creatinine [Mass ratio] 27.8 mg/mg Normal [facility] Comment on above: Performed By: #### C MP ####[facility] Fdyacmynbn[address] [place], [place] [address]Dr. Airam Tripathi OSMOLALITYon 08-28-2022 Osmolality [Osmolality] 288 mosm/kg Normal 275-295 [facility] Comment on above: Performed By: #### O SMO ####[facility] [address]qvfhzzkiz[address] [place], [place] [address]Dr. Airam Tripathi CBC AUTO DIFFon 08-25-2022 BASO # 0.0 103/ul Normal 0.0-0.1 [facility] Comment on above: Performed By: #### C BC ####[facility] Cwsvmfokmt[address] [place], [place] [address]Dr. Airam Tripathi Basophils/100 WBC (Bld) 0.5 % Normal 0.2-2.0 [facility] Comment on above: Performed By: #### C BC ####[facility] [address]zqlysqqlh[address] [place], [place] [address]Dr. Airam Tripathi EO # 0.4 103/ul Normal 0.0-0.7 [facility] Comment on above: Performed By: #### C BC ####[facility] [address]otqfkcwc[address] [place], [place] [address]Dr. Airam Tripathi Eosinophils/100 WBC (Bld) 4.8 % Normal 0.9-7.0 [facility] Comment on above: Performed By: #### C BC ####[facility] Nezthuxium[address] [place], [place] [address]Dr. Airam Tripathi Erythrocyte distribution width (RBC) [Ratio] 14.2 % Normal 11.0-15.0 [facility] Comment on above: Performed By: #### C BC ####[facility] [address]ebpblmmt[address] [place] [address]DrKianna Airam Tripathi Hematocrit (Bld) [Volume fraction] 31.1 % Critically low 36.0-48.0 [facility] Comment on above: Performed By: #### C BC ####[facility] Pnwyknzwlp7216 [place] [address]DrKianna Tripathi Hemoglobin (Bld) [Mass/Vol] 9.7 g/dL Critically low 12.0-16.0 [facility] Comment on above: Performed By: #### C BC ####[facility] Llhuellh[address] [place], [place] [address]DrKianna Tripathi IG # 0.05 10e3/ul Critically high 0.00-0.03 [facility] Comment on above: Performed By: #### C BC ####[facility] Mvcahmcvuk[address] [place], [place] [address]DrKianna Tripathi IG % 0.6 % Critically high 0.0-0.5 [facility] Comment on above: Performed By: #### C BC ####[facility] Gpjtxdhnxl[address] [place], [place] [address]DrKianna Tripathi LYMPH # 1.7 103/ul Normal 1.2-3.8 [facility] Comment on above: Performed By: #### C BC ####[facility] Xbodlowfsq[address] [place], [place] [address]DrKianna Tripathi Lymphocytes/100 WBC (Bld) 19.6 % Critically low 20.5-60.0 [facility] Comment on above: Performed By: #### C BC ####[facility] Svjyjx[address]he[address] [place], [place] [address]DrKianna Tripathi MANUAL DIFF REQ NO Normal [facility] Comment on above: Performed By: #### C BC ####[facility] Dmsnpjdrbz9[address] [place], [place] [address]DrKianna Tripathi MCH (RBC) [Entitic mass] 28.2 pg Normal 26.7-34.0 [facility] Comment on above: Performed By: #### C BC ####[facility] Rbbrbxxweb3274 [place] [id number]. Airam Deuce MCHC (RBC) [Mass/Vol] 31.2 g/dL Normal 29.9-35.2 [facility] Comment on above: Performed By: #### C BC ####[facility] Ufteozzucn14[address] [place] [id number]. Airam Tripathi MCV (RBC) [Entitic vol] 90.4 fL Normal 81.0-99.0 [facility] Comment on above: Performed By: #### C BC ####[facility] Njockmbeka[address] [place], [place] [address]Dr. Airam Tripathi MONO # 0.6 103/ul Normal 0.3-0.8 [facility] Comment on above: Performed By: #### C BC ####[facility] Rbjvffwbhg[address] [place], [place] [address]Dr. Airam Tripathi Monocytes/100 WBC (Bld) 7.4 % Normal 1.7-12.0 [facility] Comment on above: Performed By: #### C BC ####[facility] Mfjcdpcdof[address] [place], [place] [address]Dr. Airam Tripathi NEUT # 5.8 103/ul Normal 1.4-6.5 [facility] Comment on above: Performed By: #### C BC ####[facility] Lnshmqyvdl499[address] [place], [place] [address]Dr. Airam Tripathi Neutrophils/100 WBC (Bld) 67.1 % Normal 43.0-75.0 [facility] Comment on above: Performed By: #### C BC ####[facility] Jcfssyvzth[address] [place], [place] [address]DrKianna Tripathi Platelet mean volume (Bld) [Entitic vol] 9.9 fL Normal 9.5-13.5 [facility] Comment on above: Performed By: #### C BC ####[facility] Gxitcvwtuq[address] [place], [place] [id number]. Airam Tripathi PLT 320 103/ul Normal 150-450 [facility] Comment on above: Performed By: #### C BC ####[facility] Bfbkujgozr3124 [place] [phone]. Airam Tripathi RBC 3.44 106/ul Critically low 4.20-5.40 [facility] Comment on above: Performed By: #### C BC ####[facility] Ouptlehecv3[address] [place] [phone]. Airam Tripathi WBC 8.6 103/ul Normal 4.0-11.0 [facility] Comment on above: Performed By: #### C BC ####[facility] Bjnaoofkby5087 [place] [address]Dr. Airam Tripathi PROF 14(COMP METB)on 023 Albumin [Mass/Vol] 3.4 g/dL Normal 3.4-5.0 [facility] Comment on above: Performed By: #### C MP ####[facility] Tyysqyhkun8578 [place] [address]Dr. Airam Tripathi Albumin/Globulin [Mass ratio] 1.1 {ratio} Normal [facility] Comment on above: Performed By: #### C MP ####[facility] Wlwycenglr[address] [place], [place] [address]Dr. Airam Tripathi ALP [Catalytic activity/Vol] 170 U/L Critically high 46-116 [facility] Comment on above: Performed By: #### C MP ####[facility] Jxmjkghtfm4136 [place] [address]Dr. Airam Tripathi ALT [Catalytic activity/Vol] 22 U/L Normal 14-59 [facility] Comment on above: Performed By: #### C MP ####[facility] Abepdkawon0687 [place] [address]Dr. Airam Tripathi Anion gap [Moles/Vol] 14.4 mmol/L Normal [facility] Comment on above: Performed By: #### C MP ####[facility] Keegdwuimr7643 [place] [address]Dr. Airam Tripathi AST [Catalytic activity/Vol] 25 U/L Normal 15-37 [facility] Comment on above: Performed By: #### C MP ####[facility] Pfnqdxnnru8[address] [place] [phone]. Airam Tripathi Bilirubin [Mass/Vol] 0.3 mg/dL Normal 0.2-1.0 [facility] Comment on above: Performed By: #### C MP ####[facility] Spgbmgpawc[address] [place] [phone]. Airam Tripathi Calcium [Mass/Vol] 8.2 mg/dL Critically low 8.5-10.1 [facility] Comment on above: Performed By: #### C MP ####[facility] Qaszffdnuw[address] [place], [place] [address]Dr. Airam Tripathi Chloride [Moles/Vol] 98 mmol/L Normal 98-107 [facility] Comment on above: Performed By: #### C MP ####[facility] Lyphyqyzzk039[address] [place], [place] [address]Dr. Airam Tripathi CO2 [Moles/Vol] 27.8 mmol/L Normal 21.0-32.0 [facility] Comment on above: Performed By: #### C MP ####[facility] Gnhpegxgkb387[address] [place], [place] [address]Dr. Airam Tripathi Creatinine [Mass/Vol] 1.82 mg/dL Critically high 0.55-1.02 [facility] Comment on above: Performed By: #### C MP ####[facility] Wzpuebmnnw87[address] [place], [place] [address]Dr. Airam Tripathi EGFR-AF MALAGASY 34 mL/min/1.73m2 Critically low >=60 [facility] Comment on above: Performed By: #### C MP ####[facility] Lftqiujuqw02[address] [place], [place] [address]Dr. Airam Deuce EGFR-NON AF MALAGASY 28 mL/min/1.73m2 Critically low >=60 [facility] Comment on above: Performed By: #### C MP ####[facility] Awauucflpq301[address] [place], [place] [address]Dr. Airam Deuce Globulin (S) [Mass/Vol] 3.2 g/dL Normal [facility] Comment on above: Performed By: #### C MP ####[facility] Canufmrxtt8040 [place] [address]Dr. Airam Tripathi Glucose [Mass/Vol] 78 mg/dL Normal 74-106 [facility] Comment on above: Performed By: #### C MP ####[facility] Qvaiqubznk0566 [place] [address]Dr. Selenaneil Tripathi Potassium [Moles/Vol] 5.2 mmol/L Critically high 3.5-5.1 [facility] Comment on above: Performed By: #### C MP ####[facility] Inwyogoelk5[address] [place] [address]Dr. Airam Deuce Protein [Mass/Vol] 6.6 g/dL Normal 6.4-8.2 [facility] Comment on above: Performed By: #### C MP ####[facility] Fqgltzvqku311[address] [place], [place] [address]Dr. Airam Tripathi Sodium [Moles/Vol] 135 mmol/L Critically low 136-145 [facility] Comment on above: Performed By: #### C MP ####[facility] Siwqqasric49[address] [place], [place] [address]Dr. Airam Deuce Urea nitrogen [Mass/Vol] 51.0 mg/dL Critically high 7.0-18.0 [facility] Comment on above: Performed By: #### C MP ####[facility] Frzxarvist96[address] [place], [place] [address]Dr. Airam Tripathi Urea nitrogen/Creatinine [Mass ratio] 28.0 mg/mg Normal [facility] Comment on above: Performed By: #### C MP ####[facility] Awykgyxriw169[address] [place], [place] [address]Dr. Airam Tripathi OSMOLALITYon 08-18-2022 Osmolality [Osmolality] 280 mosm/kg Normal 275-295 [facility] Comment on above: Performed By: #### O SMO ####[facility] Lhmomfywci[address] [place], [place] [address]Dr. Airam Tripathi CBC AUTO DIFFon 08-16-2022 BASO # 0.0 103/ul Normal 0.0-0.1 [facility] Comment on above: Performed By: #### C BC ####[facility] Uamyqdkags2580 [place] [address]Dr. Airam Tripathi Basophils/100 WBC (Bld) 0.2 % Normal 0.2-2.0 [facility] Comment on above: Performed By: #### C BC ####[facility] Kaxzbyrqul309[address] [place], [place] [address]Dr. Airam Tripathi EO # 0.2 103/ul Normal 0.0-0.7 [facility] Comment on above: Performed By: #### C BC ####[facility] Ivjgasjbji17[address] [place], [place] [address]Dr. Airam Deuce Eosinophils/100 WBC (Bld) 2.4 % Normal 0.9-7.0 [facility] Comment on above: Performed By: #### C BC ####[facility] Afbhxvmswo9[address] [place], [place] [address]Dr. Airam Tripathi Erythrocyte distribution width (RBC) [Ratio] 14.2 % Normal 11.0-15.0 [facility] Comment on above: Performed By: #### C BC ####[facility] Bdoslktecy[address] [place], [place] [address]Dr. Airam Tripathi Hematocrit (Bld) [Volume fraction] 30.1 % Critically low 36.0-48.0 [facility] Comment on above: Performed By: #### C BC ####[facility] Yzyysqxeqq167[address] [place], [place] [address]Dr. Airam Tripathi Hemoglobin (Bld) [Mass/Vol] 9.2 g/dL Critically low 12.0-16.0 [facility] Comment on above: Performed By: #### C BC ####[facility] Pvejrscggo[address] [place], [place] [address]Dr. Selenaneil Tripathi IG # 0.04 10e3/ul Critically high 0.00-0.03 [facility] Comment on above: Performed By: #### C BC ####[facility] Rxitgrucbg[address] [place], [place] [address]Dr. Selenaneil Tripathi IG % 0.4 % Normal 0.0-0.5 [facility] Comment on above: Performed By: #### C BC ####[facility] Vcerfnobpg9968 [place] [address]Dr. Airam Deuce LYMPH # 0.9 103/ul Critically low 1.2-3.8 [facility] Comment on above: Performed By: #### C BC ####[facility] Zycieepwss6362 [place] [address]Dr. Airam Deuce Lymphocytes/100 WBC (Bld) 9.3 % Critically low 20.5-60.0 [facility] Comment on above: Performed By: #### C BC ####[facility] Fubzgdbudk[address] [place], [place] [address]Dr. Selenaneil Tripathi MANUAL DIFF REQ NO Normal [facility] Comment on above: Performed By: #### C BC ####[facility] Xbetkhpysq8436[address] [place], [place] [address]Dr. Airam Deuce MCH (RBC) [Entitic mass] 27.7 pg Normal 26.7-34.0 [facility] Comment on above: Performed By: #### C BC ####[facility] Ongzeiluzn[address] [place], [place] [address]Dr. Airam Tripathi MCHC (RBC) [Mass/Vol] 30.6 g/dL Normal 29.9-35.2 [facility] Comment on above: Performed By: #### C BC ####[facility] Koabbwgsrn[address] [place], [place] [address]Dr. Airam Tripathi MCV (RBC) [Entitic vol] 90.7 fL Normal 81.0-99.0 [facility] Comment on above: Performed By: #### C BC ####[facility] Pltzmzlqnd[address] [place], [place] [address]DrKianna Tripathi MONO # 0.5 103/ul Normal 0.3-0.8 [facility] Comment on above: Performed By: #### C BC ####[facility] Udgicmhhql348[address] [place], [place] [address]Dr. Airam Tripathi Monocytes/100 WBC (Bld) 5.3 % Normal 1.7-12.0 [facility] Comment on above: Performed By: #### C BC ####[facility] Qfqdroonah7777 [place] [address]Dr. Airam Tripathi NEUT # 7.7 103/ul Critically high 1.4-6.5 [facility] Comment on above: Performed By: #### C BC ####[facility] Izvhhzcfgw2247 [place] [address]Dr. Airam Tripathi Neutrophils/100 WBC (Bld) 82.4 % Critically high 43.0-75.0 [facility] Comment on above: Performed By: #### C BC ####[facility] Kbnpjnocrp9317 [place] [address]Dr. Airam Tripathi Platelet mean volume (Bld) [Entitic vol] 9.8 fL Normal 9.5-13.5 [facility] Comment on above: Performed By: #### C BC ####[facility] Majmcdjiya[address] [place], [place] [address]Dr. Airam Tripathi PLT 285 103/ul Normal 150-450 [facility] Comment on above: Performed By: #### C BC ####[facility] Qbzbthhwyl9[address] [place], [place] [address]Dr. Airam Tripathi RBC 3.32 106/ul Critically low 4.20-5.40 [facility] Comment on above: Performed By: #### C BC ####[facility] Eyygxuqgyc57[address] [place], [place] [address]Dr. Airam Tripathi WBC 9.4 103/ul Normal 4.0-11.0 [facility] Comment on above: Performed By: #### C BC ####[facility] Mpevvebfph1092 [place] [address]Dr. Airam Tripathi MRI WRIST RT WO CONon 2022 MRI WRIST RT WO CON Normal [facility] PROF 14(COMP METB)on 023 Albumin [Mass/Vol] 3.1 g/dL Critically low 3.4-5.0 [facility] Comment on above: Performed By: #### C MP ####[facility] Iobtmpdrni8253 [place] [address]Dr. Airam Deuce Albumin/Globulin [Mass ratio] 0.9 {ratio} Normal [facility] Comment on above: Performed By: #### C MP ####[facility] Wdabjvzcpw3924 [place] [address]Dr. Airam Deuce ALP [Catalytic activity/Vol] 162 U/L Critically high 46-116 [facility] Comment on above: Performed By: #### C MP ####[facility] Xmzenucjbv88[address] [place], [place] [address]Dr. Airam Tripathi ALT [Catalytic activity/Vol] 19 U/L Normal 14-59 [facility] Comment on above: Performed By: #### C MP ####[facility] Cldlvojzox64[address] [place], [place] [address]Dr. Airam Tripathi Anion gap [Moles/Vol] 13.0 mmol/L Normal [facility] Comment on above: Performed By: #### C MP ####[facility] Utkezqbtaq14[address] [place], [place] [address]Dr. Selenaneil Tripathi AST [Catalytic activity/Vol] 21 U/L Normal 15-37 [facility] Comment on above: Performed By: #### C MP ####[facility] Qendmgfzmz858[address] [place], [place] [address]Dr. Airam Tripathi Bilirubin [Mass/Vol] 0.3 mg/dL Normal 0.2-1.0 [facility] Comment on above: Performed By: #### C MP ####[facility] Biidftanlz[address] [place], [place] [address]Dr. Airam Tripathi Calcium [Mass/Vol] 8.4 mg/dL Critically low 8.5-10.1 [facility] Comment on above: Performed By: #### C MP ####[facility] Tjulxskoyt[address] [place], [place] [address]Dr. Airam Tripathi Chloride [Moles/Vol] 103 mmol/L Normal 98-107 [facility] Comment on above: Performed By: #### C MP ####[facility] Qpplgmujhf4637[address] [place], [place] [address]Dr. Airam Tripatih CO2 [Moles/Vol] 23.3 mmol/L Normal 21.0-32.0 [facility] Comment on above: Performed By: #### C MP ####[facility] Vzlcnisqbc[address] [place], [place] [address]Dr. Airam Tripathi Creatinine [Mass/Vol] 1.02 mg/dL Normal 0.55-1.02 [facility] Comment on above: Performed By: #### C MP ####[facility] Nirutjimsf[address] [place], [place] [address]Dr. Airam Tripathi EGFR-AF MALAGASY >60 Normal >=60 [facility] Comment on above: Performed By: #### C MP ####[facility] Tqpaewhdab[address] [place], [place] [address]Dr. Airam Tripathi EGFR-NON AF MALAGASY 55 mL/min/1.73m2 Critically low >=60 [facility] Comment on above: Performed By: #### C MP ####[facility] [address]zfeqtscz[address] [place], [place] [address]Dr. Airam Tripathi Globulin (S) [Mass/Vol] 3.4 g/dL Normal [facility] Comment on above: Performed By: #### C MP ####[facility] Onabdddiww06[address] [place], [place] [address]Dr. Airam Tripathi Glucose [Mass/Vol] 88 mg/dL Normal 74-106 [facility] Comment on above: Performed By: #### C MP ####[facility] Iqpfanearx[address] [place], [place] [address]Dr. Airam Tripathi Potassium [Moles/Vol] 4.3 mmol/L Normal 3.5-5.1 [facility] Comment on above: Performed By: #### C MP ####[facility] Zbchjxdido[address] [place], [place] [address]Dr. Airam Tripathi Protein [Mass/Vol] 6.5 g/dL Normal 6.4-8.2 [facility] Comment on above: Performed By: #### C MP ####[facility] Mmrtmerpym[address] [place], [place] [address]DrKianna Tripathi Sodium [Moles/Vol] 135 mmol/L Critically low 136-145 [facility] Comment on above: Performed By: #### C MP ####[facility] Jrnpsitnvq3523 [place] [address]DrKianna Tripathi Urea nitrogen [Mass/Vol] 27.0 mg/dL Critically high 7.0-18.0 [facility] Comment on above: Performed By: #### C MP ####[facility] Jyykgdjhgz1525 [place] [address]DrKianna Tripathi Urea nitrogen/Creatinine [Mass ratio] 26.5 mg/mg Normal [facility] Comment on above: Performed By: #### C MP ####[facility] Vrasuiqmyz[address] [place], [place] [address]DrKianna Tripathi CT HEAD WO CONon 08-06-2022 CT HEAD WO CON Normal [facility] CT LSPINE WO CONon 3 CT LSPINE WO CON Normal [facility] XR HAND RT MIN 3Von 08-06-19 23 XR HAND RT MIN 3V Normal [facility] XR KNEE LT 4V or >on 023 XR KNEE LT 4V or > Normal [facility] XR WRIST RT MIN 3 Von 2022 XR WRIST RT MIN 3 V Normal [facility] OSMOLALITYon 08-05-2022 Osmolality [Osmolality] 282 mosm/kg Normal 275-295 [facility] Comment on above: Performed By: #### O SMO ####[facility] Waheyklkuc[address] [place] [address]DrKianna Tripathi CBC AUTO DIFFon 08-03-2022 BASO # 0.0 103/ul Normal 0.0-0.1 [facility] Comment on above: Performed By: #### C BC ####[facility] Tuqgsobyzx6798 [place] [address]DrKianna Tripathi Basophils/100 WBC (Bld) 0.5 % Normal 0.2-2.0 [facility] Comment on above: Performed By: #### C BC ####[facility] Cogjwusbwr7255 [place] [address]DrKianna Tripathi EO # 0.5 103/ul Normal 0.0-0.7 [facility] Comment on above: Performed By: #### C BC ####[facility] Xlfunohksr1999 [place] [address]Dr. Airam Tripathi Eosinophils/100 WBC (Bld) 5.2 % Normal 0.9-7.0 [facility] Comment on above: Performed By: #### C BC ####[facility] Lbaqcgalij2649 [place] [address]Dr. Airam Tripathi Erythrocyte distribution width (RBC) [Ratio] 14.3 % Normal 11.0-15.0 [facility] Comment on above: Performed By: #### C BC ####[facility] Aivrdgpmdd1319 [place] [address]Dr. Aiarm Tripathi Hematocrit (Bld) [Volume fraction] 31.4 % Critically low 36.0-48.0 [facility] Comment on above: Performed By: #### C BC ####[facility] Iuiyieklpz[address] [place] [address]Dr. Airam Tripathi Hemoglobin (Bld) [Mass/Vol] 9.5 g/dL Critically low 12.0-16.0 [facility] Comment on above: Performed By: #### C BC ####[facility] Z[address]udxakzak[address] [place], [place] [address]Dr. Airam Tripathi IG # 0.05 10e3/ul Critically high 0.00-0.03 [facility] Comment on above: Performed By: #### C BC ####[facility] Sbwxuvijcg5077 [place] [address]Dr. Airam Tripathi IG % 0.6 % Critically high 0.0-0.5 [facility] Comment on above: Performed By: #### C BC ####[facility] Stgseqxcej[address] [place], [place] [address]Dr. Airam Tripathi LYMPH # 1.5 103/ul Normal 1.2-3.8 [facility] Comment on above: Performed By: #### C BC ####[facility] Qwivsyvujt[address] [place], [place] [address]Dr. Airam Tripathi Lymphocytes/100 WBC (Bld) 17.6 % Critically low 20.5-60.0 [facility] Comment on above: Performed By: #### C BC ####[facility] Dvpeeibpdw2953 [place] [address]Dr. Airam Tripathi MANUAL DIFF REQ NO Normal [facility] Comment on above: Performed By: #### C BC ####[facility] Ysnayfbpsc4247 [place] [address]Dr. Airam Tripathi MCH (RBC) [Entitic mass] 29.0 pg Normal 26.7-34.0 [facility] Comment on above: Performed By: #### C BC ####[facility] Vvunkugvok0765 [place] [address]Dr. Airam Tripathi MCHC (RBC) [Mass/Vol] 30.3 g/dL Normal 29.9-35.2 [facility] Comment on above: Performed By: #### C BC ####[facility] Jzechrjjfr3656 [place] [address]Dr. Airam Tripathi MCV (RBC) [Entitic vol] 95.7 fL Normal 81.0-99.0 [facility] Comment on above: Performed By: #### C BC ####[facility] Hntxdpxsxn9946 [place] [address]Dr. Airam Tripathi MONO # 0.7 103/ul Normal 0.3-0.8 [facility] Comment on above: Performed By: #### C BC ####[facility] Lfjhacmsaf4159 [place] [address]Dr. Airam Tripathi Monocytes/100 WBC (Bld) 8.5 % Normal 1.7-12.0 [facility] Comment on above: Performed By: #### C BC ####[facility] Yoldgkmrcb0392 [place] [address]DrKianna Tripathi NEUT # 5.8 103/ul Normal 1.4-6.5 [facility] Comment on above: Performed By: #### C BC ####[facility] Sofapjrnaa6124 [place] [address]Dr. Airam Deuce Neutrophils/100 WBC (Bld) 67.6 % Normal 43.0-75.0 [facility] Comment on above: Performed By: #### C BC ####[facility] Lzhjjrasfc8354 [place] [address]Dr. Airam Tripathi Platelet mean volume (Bld) [Entitic vol] 9.5 fL Normal 9.5-13.5 [facility] Comment on above: Performed By: #### C BC ####[facility] Prdwxchymu4218 [place] [address]Dr. Airam Tripathi PLT 292 103/ul Normal 150-450 [facility] Comment on above: Performed By: #### C BC ####[facility] Zpupozyndz2377 [place] [address]Dr. Selenaneil Deuce RBC 3.28 106/ul Critically low 4.20-5.40 [facility] Comment on above: Performed By: #### C BC ####[facility] [address]aslezwjz[address] [place], [place] [address]DrKianna Waltersneil Deuce WBC 8.6 103/ul Normal 4.0-11.0 [facility] Comment on above: Performed By: #### C BC ####[facility] [address]kojekhx[address] [place], [place] [address]DrKianna Tripathi PROF 14(COMP METB)on 023 Albumin [Mass/Vol] 3.0 g/dL Critically low 3.4-5.0 [facility] Comment on above: Performed By: #### C MP ####[facility] Ttioqaoall1898 [place] [address]DrKianna Tripathi Albumin/Globulin [Mass ratio] 0.9 {ratio} Normal [facility] Comment on above: Performed By: #### C MP ####[facility] Inwvoyuocf6693 [place] [address]DrKianna Tripathi ALP [Catalytic activity/Vol] 184 U/L Critically high 46-116 [facility] Comment on above: Performed By: #### C MP ####[facility] Uwliachwge24[address] [place] [address]Dr. Airam Deuce ALT [Catalytic activity/Vol] 18 U/L Normal 14-59 [facility] Comment on above: Performed By: #### C MP ####[facility] [address]djfckfq[address] [place] [address]Dr. Selenaneil Deuce Anion gap [Moles/Vol] 11.2 mmol/L Normal Th e [facility] Comment on above: Performed By: #### C MP ####[facility] Peafibdxgd[address] [place] [address]Dr. Airam Deuce AST [Catalytic activity/Vol] 19 U/L Normal 15-37 [facility] Comment on above: Performed By: #### C MP ####[facility] Zusssxgdhr[address] [place], [place] [address]Dr. Airam Tripathi Bilirubin [Mass/Vol] 0.3 mg/dL Normal 0.2-1.0 [facility] Comment on above: Performed By: #### C MP ####[facility] Gehdccmlyf[address] [place], [place] [address]Dr. Airam Tripathi Calcium [Mass/Vol] 8.8 mg/dL Normal 8.5-10.1 [facility] Comment on above: Performed By: #### C MP ####[facility] Inlbsdmumv206[address] [place], [place] [address]Dr. Airam Tripathi Chloride [Moles/Vol] 101 mmol/L Normal 98-107 [facility] Comment on above: Performed By: #### C MP ####[facility] Vcgmikmbcl635[address] [place], [place] [address]Dr. Airam Tripathi CO2 [Moles/Vol] 25.4 mmol/L Normal 21.0-32.0 [facility] Comment on above: Performed By: #### C MP ####[facility] Kackfcjrkb698[address] [place], [place] [address]Dr. Airam Tripathi Creatinine [Mass/Vol] 1.05 mg/dL Critically high 0.55-1.02 [facility] Comment on above: Performed By: #### C MP ####[facility] Yhojxkgqup847[address] [place], [place] [address]Dr. Airam Tripathi EGFR-AF MALAGASY >60 Normal >=60 [facility] Comment on above: Performed By: #### C MP ####[facility] Vayswzvtnn[address] [place] [address]Dr. Airam Deuce EGFR-NON AF MALAGASY 53 mL/min/1.73m2 Critically low >=60 [facility] Comment on above: Performed By: #### C MP ####[facility] Lfucbmyjhr06[address] [place] [address]Dr. Selenaneil Deuce Globulin (S) [Mass/Vol] 3.4 g/dL Normal [facility] Comment on above: Performed By: #### C MP ####[facility] Uylnxngdpi0518 [place] [address]Dr. Airam Tripathi Glucose [Mass/Vol] 78 mg/dL Normal 74-106 [facility] Comment on above: Performed By: #### C MP ####[facility] Ratskbhbwg6[address] [place] [address]Dr. Airam Tripathi Potassium [Moles/Vol] 4.6 mmol/L Normal 3.5-5.1 [facility] Comment on above: Performed By: #### C MP ####[facility] Vvedhlsccv7[address] [place], [place] [address]Dr. Airam Tripathi Protein [Mass/Vol] 6.4 g/dL Normal 6.4-8.2 [facility] Comment on above: Performed By: #### C MP ####[facility] Yhdeecruqw88[address] [place] [address]Dr. Airam Tripathi Sodium [Moles/Vol] 133 mmol/L Critically low 136-145 [facility] Comment on above: Performed By: #### C MP ####[facility] Fpddxefyfq9035 [place] [address]Dr. Airam Tripathi Urea nitrogen [Mass/Vol] 26.0 mg/dL Critically high 7.0-18.0 [facility] Comment on above: Performed By: #### C MP ####[facility] Fmvqhptnir9566 [place] [address]Dr. Airam Tripathi Urea nitrogen/Creatinine [Mass ratio] 24.8 mg/mg Normal [facility] Comment on above: Performed By: #### C MP ####[facility] Jydccqjhlp175[address] [place], [place] [address]Dr. Airam Deuce OSMOLALITYon 07-29-2022 Osmolality [Osmolality] 287 mosm/kg Normal 275-295 [facility] Comment on above: Performed By: #### O SMO ####[facility] Aplwadltin77[address] [place], [place] [address]Dr. Airam Tripathi CBC AUTO DIFFon 07-27-2022 BASO # 0.0 103/ul Normal 0.0-0.1 [facility] Comment on above: Performed By: #### C BC ####[facility] Vcpltxkxvu4[address] [place], [place] [address]Dr. Airam Tripathi Basophils/100 WBC (Bld) 0.4 % Normal 0.2-2.0 [facility] Comment on above: Performed By: #### C BC ####[facility] Pqgkhhabsh102[address] [place], [place] [address]Dr. Airam Tripathi EO # 0.2 103/ul Normal 0.0-0.7 [facility] Comment on above: Performed By: #### C BC ####[facility] Uffsvrqiof9[address] [place], [place] [address]Dr. Airam Tripathi Eosinophils/100 WBC (Bld) 2.6 % Normal 0.9-7.0 [facility] Comment on above: Performed By: #### C BC ####[facility] Lupjycfqup4626[address] [place], [place] [address]Dr. Airam Tripathi Erythrocyte distribution width (RBC) [Ratio] 14.2 % Normal 11.0-15.0 [facility] Comment on above: Performed By: #### C BC ####[facility] Qyxqffempa600[address] [place], [place] [address]Dr. Airam Tripathi Hematocrit (Bld) [Volume fraction] 31.3 % Critically low 36.0-48.0 [facility] Comment on above: Performed By: #### C BC ####[facility] Luhkgvritt224[address] [place], [place] [address]Dr. Airam Tripathi Hemoglobin (Bld) [Mass/Vol] 9.3 g/dL Critically low 12.0-16.0 [facility] Comment on above: Performed By: #### C BC ####[facility] Ccsgapbseo32[address] [place] [address]Dr. Airam Tripathi IG # 0.05 10e3/ul Critically high 0.00-0.03 [facility] Comment on above: Performed By: #### C BC ####[facility] Ysxvbxgtam9606 [place] [address]Dr. Airam Tripathi IG % 0.7 % Critically high 0.0-0.5 [facility] Comment on above: Performed By: #### C BC ####[facility] Fuafjosspj412[address] [place], [place] [address]Dr. Airam Tripathi LYMPH # 1.0 103/ul Critically low 1.2-3.8 [facility] Comment on above: Performed By: #### C BC ####[facility] Xesbuvmuly4489[address] [place], [place] [address]Dr. Airam Tripathi Lymphocytes/100 WBC (Bld) 13.4 % Critically low 20.5-60.0 [facility] Comment on above: Performed By: #### C BC ####[facility] Txlgzokhqi55[address] [place] [address]Dr. Airam Tripathi MANUAL DIFF REQ NO Normal [facility] Comment on above: Performed By: #### C BC ####[facility] Smeeegpgzl843[address] [place], [place] [address]Dr. Selenaneil Deuce MCH (RBC) [Entitic mass] 28.8 pg Normal 26.7-34.0 [facility] Comment on above: Performed By: #### C BC ####[facility] Gpfuiqvhze5614[address] [place], [place] [address]Dr. Airam Tripathi MCHC (RBC) [Mass/Vol] 29.7 g/dL Critically low 29.9-35.2 [facility] Comment on above: Performed By: #### C BC ####[facility] Vmirzhvbii2688[address] [place], [place] [address]Dr. Airam Deuce MCV (RBC) [Entitic vol] 96.9 fL Normal 81.0-99.0 [facility] Comment on above: Performed By: #### C BC ####[facility] Wetyajvbhn9[address] [place] [address]Dr. Airam Tripathi MONO # 0.5 103/ul Normal 0.3-0.8 [facility] Comment on above: Performed By: #### C BC ####[facility] Oehghwhrzv695[address] [place], [place] [address]Dr. Airam Deuce Monocytes/100 WBC (Bld) 6.3 % Normal 1.7-12.0 [facility] Comment on above: Performed By: #### C BC ####[facility] Flbonlgpen722[address] [place], [place] [address]Dr. Airam Tripathi NEUT # 5.8 103/ul Normal 1.4-6.5 [facility] Comment on above: Performed By: #### C BC ####[facility] Asnwdmksho224678 [address] [place], [place] [address]Dr. Airam Deuce Neutrophils/100 WBC (Bld) 76.6 % Critically high 43.0-75.0 [facility] Comment on above: Performed By: #### C BC ####[facility] Nslgvoxedo919[address] [place], [place] [address]Dr. Airam Deuce Platelet mean volume (Bld) [Entitic vol] 10.3 fL Normal 9.5-13.5 [facility] Comment on above: Performed By: #### C BC ####[facility] Ckmdgiqbya465[address] [place], [place] [address]Dr. Selenaneil Deuce PLT 265 103/ul Normal 150-450 [facility] Comment on above: Performed By: #### C BC ####[facility] Wjigcuukpj3827[address] [place], [place] [address]Dr. Selenaneil Deuce RBC 3.23 106/ul Critically low 4.20-5.40 [facility] Comment on above: Performed By: #### C BC ####[facility] Ekmgmvftni6559[address] [place], [place] [address]DrKianna Tripathi WBC 7.6 103/ul Normal 4.0-11.0 [facility] Comment on above: Performed By: #### C BC ####[facility] Rcbzbtkdka205[address] [place], [place] [address]DrKianna Tripathi PROF 14(COMP METB)on 023 Albumin [Mass/Vol] 2.9 g/dL Critically low 3.4-5.0 [facility] Comment on above: Performed By: #### C MP ####[facility] Awxskduryp387[address] [place], [place] [address]Dr. Airam Tripathi Albumin/Globulin [Mass ratio] 0.8 {ratio} Normal [facility] Comment on above: Performed By: #### C MP ####[facility] Ekjmkjmkpb800[address] [place], [place] [address]Dr. Airam Tripathi ALP [Catalytic activity/Vol] 175 U/L Critically high 46-116 [facility] Comment on above: Performed By: #### C MP ####[facility] Mndmrebpds369[address] [place], [place] [address]Dr. Airam Tripathi ALT [Catalytic activity/Vol] 24 U/L Normal 14-59 [facility] Comment on above: Performed By: #### C MP ####[facility] Yyaqcwzpwr90[address] [place], [place] [address]DrKianna Tripathi Anion gap [Moles/Vol] 14.3 mmol/L Normal [facility] Comment on above: Performed By: #### C MP ####[facility] Jbqwptjhrz53[address] [place], [place] [address]DrKianna Tripathi AST [Catalytic activity/Vol] 25 U/L Normal 15-37 [facility] Comment on above: Performed By: #### C MP ####[facility] Kcuwjzbvlq158[address] [place], [place] [address]DrKianna Tripathi Bilirubin [Mass/Vol] 0.2 mg/dL Normal 0.2-1.0 [facility] Comment on above: Performed By: #### C MP ####[facility] Gbpeqlcniq5317[address] [place], [place] [address]DrKianna Tripathi Calcium [Mass/Vol] 8.6 mg/dL Normal 8.5-10.1 [facility] Comment on above: Performed By: #### C MP ####[facility] Dxdqilzisz1738[address] [place], [place] [address]Dr. Airam Deuce Chloride [Moles/Vol] 102 mmol/L Normal 98-107 [facility] Comment on above: Performed By: #### C MP ####[facility] Kmqiplxlka2530[address] [place], [place] [address]Dr. Airam Tripathi CO2 [Moles/Vol] 23.7 mmol/L Normal 21.0-32.0 [facility] Comment on above: Performed By: #### C MP ####[facility] Yhxavrxbij[address] [place], [place] [address]Dr. Airam Deuce Creatinine [Mass/Vol] 1.29 mg/dL Critically high 0.55-1.02 [facility] Comment on above: Performed By: #### C MP ####[facility] Ayhqfvbwgy40[address] [place], [place] [address]Dr. Airam Deuce EGFR-AF MALAGASY 51 mL/min/1.73m2 Critically low >=60 [facility] Comment on above: Performed By: #### C MP ####[facility] Kcfupjwnia9[address] [place], [place] [address]Dr. Airam Deuce EGFR-NON AF MALAGASY 42 mL/min/1.73m2 Critically low >=60 [facility] Comment on above: Performed By: #### C MP ####[facility] Anmhflozrk9835[address] [place], [place] [address]Dr. Airam Deuce Globulin (S) [Mass/Vol] 3.6 g/dL Normal [facility] Comment on above: Performed By: #### C MP ####[facility] Cxletjhljt701[address] [place], [place] [address]Dr. Airam Deuce Glucose [Mass/Vol] 84 mg/dL Normal 74-106 [facility] Comment on above: Performed By: #### C MP ####[facility] Wowlurdcyo7739[address] [place], [place] [address]Dr. Airam Tripathi Potassium [Moles/Vol] 5.0 mmol/L Normal 3.5-5.1 [facility] Comment on above: Performed By: #### C MP ####[facility] Obudidvnue[address] [place], [place] [address]Dr. Airam Tripathi Protein [Mass/Vol] 6.5 g/dL Normal 6.4-8.2 [facility] Comment on above: Performed By: #### C MP ####[facility] Gekcdtfmwt089[address] [place], [place] [address]Dr. Airam Tripathi Sodium [Moles/Vol] 135 mmol/L Critically low 136-145 [facility] Comment on above: Performed By: #### C MP ####[facility] Sivayhltae2864[address] [place], [place] [address]Dr. Airam Tripathi Urea nitrogen [Mass/Vol] 28.0 mg/dL Critically high 7.0-18.0 [facility] Comment on above: Performed By: #### C MP ####[facility] Trgxxybvbc0717[address] [place], [place] [address]Dr. Airam Tripathi Urea nitrogen/Creatinine [Mass ratio] 21.7 mg/mg Normal [facility] Comment on above: Performed By: #### C MP ####[facility] Afhqpckkgm25[address] [place], [place] [address]Dr. Airam Tripathi XR LSPINE MIN 4 VIEWSon 02-0 XR LSPINE MIN 4 VIEWS Normal [facility] OSMOLALITYon 07-24-2022 Osmolality [Osmolality] 279 mosm/kg Normal 275-295 [facility] Comment on above: Performed By: #### O SMO ####[facility] Zdfijnipyu0665[address] [place], [place] [address]Dr. Airam Tripathi CBC AUTO DIFFon 07-21-2022 BASO # 0.0 103/ul Normal 0.0-0.1 [facility] Comment on above: Performed By: #### C BC ####[facility] Hnjrdzjift95[address] [place], [place] [address]Dr. Airam Tripathi Basophils/100 WBC (Bld) 0.4 % Normal 0.2-2.0 [facility] Comment on above: Performed By: #### C BC ####[facility] Esryjqgpnq7664 [place] [address]Dr. Airam Tripathi EO # 0.2 103/ul Normal 0.0-0.7 [facility] Comment on above: Performed By: #### C BC ####[facility] Jaxnvwdmck9[address] [place] [address]Dr. Airam Tripathi Eosinophils/100 WBC (Bld) 2.3 % Normal 0.9-7.0 [facility] Comment on above: Performed By: #### C BC ####[facility] Ofbynybalh9718[address] [place], [place] [address]Dr. Airam Tripathi Erythrocyte distribution width (RBC) [Ratio] 13.6 % Normal 11.0-15.0 [facility] Comment on above: Performed By: #### C BC ####[facility] Cdgoulfpuq899[address] [place], [place] [address]Dr. Airam Tripathi Hematocrit (Bld) [Volume fraction] 32.6 % Critically low 36.0-48.0 [facility] Comment on above: Performed By: #### C BC ####[facility] Ocbpruhvos[address] [place], [place] [address]Dr. Airam Tripathi Hemoglobin (Bld) [Mass/Vol] 9.5 g/dL Critically low 12.0-16.0 [facility] Comment on above: Performed By: #### C BC ####[facility] Cvwacvjkvr8[address] [place], [place] [address]Dr. Airam Tripathi IG # 0.03 10e3/ul Normal 0.00-0.03 [facility] Comment on above: Performed By: #### C BC ####[facility] Jnzicglunn8[address] [place], [place] [address]Dr. Airam Tripathi IG % 0.4 % Normal 0.0-0.5 [facility] Comment on above: Performed By: #### C BC ####[facility] Fkkncnezte8[address] [place], [place] [address]Dr. Selenaneil Tripathi LYMPH # 1.4 103/ul Normal 1.2-3.8 [facility] Comment on above: Performed By: #### C BC ####[facility] Hraxydmhcx49[address] [place] [id number]. Airam Deuce Lymphocytes/100 WBC (Bld) 18.2 % Critically low 20.5-60.0 [facility] Comment on above: Performed By: #### C BC ####[facility] Zfmkvhkyym7981 [place] [id number]. Airam Tripathi MANUAL DIFF REQ NO Normal [facility] Comment on above: Performed By: #### C BC ####[facility] Ynzevgzrhk1523 [place] [id number]. Selenaneil Tripathi MCH (RBC) [Entitic mass] 29.5 pg Normal 26.7-34.0 [facility] Comment on above: Performed By: #### C BC ####[facility] Irnnkfchtf55[address] [place] [address]Dr. Airam Tripathi MCHC (RBC) [Mass/Vol] 29.1 g/dL Critically low 29.9-35.2 [facility] Comment on above: Performed By: #### C BC ####[facility] Zvybstpawa0603 [place] [id number]. Airam Tripathi MCV (RBC) [Entitic vol] 101.2 fL Critically high 81.0-99.0 [facility] Comment on above: Performed By: #### C BC ####[facility] Ujrgfbnepo[address] [place], [place] [address]Dr. Airam Tripathi MONO # 0.6 103/ul Normal 0.3-0.8 [facility] Comment on above: Performed By: #### C BC ####[facility] Tjvaseytka16[address] [place] [id number]. Airam Tripathi Monocytes/100 WBC (Bld) 7.9 % Normal 1.7-12.0 [facility] Comment on above: Performed By: #### C BC ####[facility] Brwtpaaubn[address] [place], [place] [address]Dr. Airam Tripathi NEUT # 5.5 103/ul Normal 1.4-6.5 [facility] Comment on above: Performed By: #### C BC ####[facility] Swlgbliwcx54[address] [place] [id number]. Selenaneil Deuce Neutrophils/100 WBC (Bld) 70.8 % Normal 43.0-75.0 [facility] Comment on above: Performed By: #### C BC ####[facility] Ufqswrqdvy6021 [place] [phone]. Selenaneil Deuce Platelet mean volume (Bld) [Entitic vol] 9.6 fL Normal 9.5-13.5 [facility] Comment on above: Performed By: #### C BC ####[facility] Njqcncdhot9838 [place] [address]Dr. Airam Tripathi PLT 265 103/ul Normal 150-450 [facility] Comment on above: Performed By: #### C BC ####[facility] Ulbpdcjkxw2936 [place] [address]Dr. Airam Tripathi RBC 3.22 106/ul Critically low 4.20-5.40 [facility] Comment on above: Performed By: #### C BC ####[facility] Pyhumlrmqu5925 [place] [id number]. Airam Tripathi WBC 7.8 103/ul Normal 4.0-11.0 [facility] Comment on above: Performed By: #### C BC ####[facility] Znntfoofhu2694 [place] [address]DrKianna Tripathi PROF 14(COMP METB)on 023 Albumin [Mass/Vol] 2.9 g/dL Critically low 3.4-5.0 e [facility] Comment on above: Performed By: #### C MP ####[facility] Tapeoppeff[address] [place] [address]DrKianna Tripathi Albumin/Globulin [Mass ratio] 0.9 {ratio} Normal [facility] Comment on above: Performed By: #### C MP ####[facility] Tpaghwbxsb1441 [place] [id number] Tripathi ALP [Catalytic activity/Vol] 176 U/L Critically high 46-116 [facility] Comment on above: Performed By: #### C MP ####[facility] Pevnyqkvid6446 [place] [id number]. Airam Tripathi ALT [Catalytic activity/Vol] 19 U/L Normal 14-59 [facility] Comment on above: Performed By: #### C MP ####[facility] Cmewunzxtm1143 [place] [phone]. Airam Deuce Anion gap [Moles/Vol] 12.6 mmol/L Normal [facility] Comment on above: Performed By: #### C MP ####[facility] Utcmvpybte7358 [place] [address]Dr. Airam Deuce AST [Catalytic activity/Vol] 25 U/L Normal 15-37 [facility] Comment on above: Performed By: #### C MP ####[facility] Lujbkmxwhs0092 [place] [address]Dr. Airam Deuce Bilirubin [Mass/Vol] 0.2 mg/dL Normal 0.2-1.0 [facility] Comment on above: Performed By: #### C MP ####[facility] Tcivjttydp[address] [place], [place] [address]Dr. Airam Deuce Calcium [Mass/Vol] 8.5 mg/dL Normal 8.5-10.1 [facility] Comment on above: Performed By: #### C MP ####[facility] Btpsyovqvv8478 [place] [address]Dr. Selenaneil Tripathi Chloride [Moles/Vol] 101 mmol/L Normal 98-107 [facility] Comment on above: Performed By: #### C MP ####[facility] Ydtflrtynp3886 [place] [address]Dr. Airam Tripathi CO2 [Moles/Vol] 25.9 mmol/L Normal 21.0-32.0 [facility] Comment on above: Performed By: #### C MP ####[facility] Cdxcvtxvho0640 [place] [address]Dr. Airam Tripathi Creatinine [Mass/Vol] 1.11 mg/dL Critically high 0.55-1.02 [facility] Comment on above: Performed By: #### C MP ####[facility] Numlfaiyiw9438 [place] [phone]. Airam Tripathi EGFR-AF MALAGASY >60 Normal >=60 [facility] Comment on above: Performed By: #### C MP ####[facility] Urmdsnfqrb2049 [place] [phone]. Airam Tripathi EGFR-NON AF MALAGASY 50 mL/min/1.73m2 Critically low >=60 [facility] Comment on above: Performed By: #### C MP ####[facility] Glvqdtpxxx2595 [place] [phone]. Airam Tripathi Globulin (S) [Mass/Vol] 3.2 g/dL Normal [facility] Comment on above: Performed By: #### C MP ####[facility] Ogkccynveq2218 [place] [address]Dr. Airam Tripathi Glucose [Mass/Vol] 80 mg/dL Normal 74-106 [facility] Comment on above: Performed By: #### C MP ####[facility] Alucjnywoi7072 [place] [address]Dr. Airam Tripathi Potassium [Moles/Vol] 3.5 mmol/L Normal 3.5-5.1 [facility] Comment on above: Performed By: #### C MP ####[facility] Qshxueadee1371 [place] [address]Dr. Airam Tripathi Protein [Mass/Vol] 6.1 g/dL Critically low 6.4-8.2 [facility] Comment on above: Performed By: #### C MP ####[facility] Qckqnqtomn2845 [place] [address]Dr. Airam Tripathi Sodium [Moles/Vol] 136 mmol/L Normal 136-145 [facility] Comment on above: Performed By: #### C MP ####[facility] Vmpqeqsoab4488 [place] [address]Dr. Airam Tripathi Urea nitrogen [Mass/Vol] 31.0 mg/dL Critically high 7.0-18.0 [facility] Comment on above: Performed By: #### C MP ####[facility] Pdxisahurd6362 [place] [address]Dr. Airam Tripathi Urea nitrogen/Creatinine [Mass ratio] 27.9 mg/mg Normal [facility] Comment on above: Performed By: #### C MP ####[facility] [address]pimupgxe[address] [place], [place] [address]Dr. Airam Tripathi OSMOLALITYon 07-19-2022 Osmolality [Osmolality] 285 mosm/kg Normal 275-295 [facility] Comment on above: Performed By: #### O SMO ####[facility] Fovaulheql[address] [place], [place] [address]Dr. Airam Deuce CBC AUTO DIFFon 07-15-2022 BASO # 0.0 103/ul Normal 0.0-0.1 [facility] Comment on above: Performed By: #### C BC ####[facility] Puarqntejl[address] [place], [place] [address]Dr. Aiarm Tripathi Basophils/100 WBC (Bld) 0.2 % Normal 0.2-2.0 [facility] Comment on above: Performed By: #### C BC ####[facility] Cpnibahmhx[address] [place], [place] [address]Dr. Airam Tripathi EO # 0.1 103/ul Normal 0.0-0.7 [facility] Comment on above: Performed By: #### C BC ####[facility] Wfuskzozjs[address] [place], [place] [address]Dr. Airam Tripathi Eosinophils/100 WBC (Bld) 1.4 % Normal 0.9-7.0 [facility] Comment on above: Performed By: #### C BC ####[facility] Jqoaphwcje[address] [place], [place] [address]Dr. Airam Tripathi Erythrocyte distribution width (RBC) [Ratio] 13.0 % Normal 11.0-15.0 [facility] Comment on above: Performed By: #### C BC ####[facility] [address]cuwggcgc[address] [place], [place] [address]Dr. Airam Tripathi Hematocrit (Bld) [Volume fraction] 29.3 % Critically low 36.0-48.0 [facility] Comment on above: Performed By: #### C BC ####[facility] Qtatdvqqdu9981 [place] [address]Dr. Airam Tripathi Hemoglobin (Bld) [Mass/Vol] 10.3 g/dL Critically low 12.0-16.0 [facility] [facility] Comment on above: Performed By: #### C BC ####[facility] [address]oecbjq[address] [place] [address]Dr. Airam Tripathi IG # 0.05 10e3/ul Critically high 0.00-0.03 [facility] Comment on above: Performed By: #### C BC ####[facility] Bsxkfybvzd[address] [place], [place] [address]Dr. Ariam Tripathi IG % 0.6 % Critically high 0.0-0.5 [facility] Comment on above: Performed By: #### C BC ####[facility] Ilvqazpyro[address] [place], [place] [address]Dr. Airam Tripathi LYMPH # 0.9 103/ul Critically low 1.2-3.8 [facility] Comment on above: Performed By: #### C BC ####[facility] Gingxylgyz312[address] [place], [place] [address]Dr. Airam Tripathi Lymphocytes/100 WBC (Bld) 10.6 % Critically low 20.5-60.0 [facility] Comment on above: Performed By: #### C BC ####[facility] Vqzdjudgep[address] [place], [place] [address]Dr. Airam Tripathi MANUAL DIFF REQ NO Normal [facility] Comment on above: Performed By: #### C BC ####[facility] Ovyuhndeiz[address] [place], [place] [address]Dr. Airam Tripathi MCH (RBC) [Entitic mass] 29.3 pg Normal 26.7-34.0 [facility] Comment on above: Performed By: #### C BC ####[facility] Ifvlzoswkd1301[address] [place], [place] [address]Dr. Airam Tripathi MCHC (RBC) [Mass/Vol] 35.2 g/dL Normal 29.9-35.2 [facility] Comment on above: Performed By: #### C BC ####[facility] [address]yocqlae[address] [place] [id number]. Airam Tripathi MCV (RBC) [Entitic vol] 83.5 fL Normal 81.0-99.0 [facility] Comment on above: Performed By: #### C BC ####[facility] Bdajiprclx6[address] [place] [id number]. Airam Deuce MONO # 0.5 103/ul Normal 0.3-0.8 [facility] Comment on above: Performed By: #### C BC ####[facility] Wpvjokwblz7[address] [place] [id number]. Airam Deuce Monocytes/100 WBC (Bld) 5.1 % Normal 1.7-12.0 [facility] Comment on above: Performed By: #### C BC ####[facility] Mppzqukvzx[address] [place], [place] [address]Dr. Selenaneil Tripathi NEUT # 7.3 103/ul Critically high 1.4-6.5 [facility] Comment on above: Performed By: #### C BC ####[facility] Wtpidpqkww[address] [place], [place] [address]Dr. Selenaneil Tripathi Neutrophils/100 WBC (Bld) 82.1 % Critically high 43.0-75.0 [facility] Comment on above: Performed By: #### C BC ####[facility] Emkyiespow3[address] [place], [place] [id number]. Airam Tripathi Platelet mean volume (Bld) [Entitic vol] 8.9 fL Critically low 9.5-13.5 [facility] Comment on above: Performed By: #### C BC ####[facility] Tgnlbocisl[address] [place], [place] [address]Dr. Airam Tripathi PLT 290 103/ul Normal 150-450 [facility] Comment on above: Performed By: #### C BC ####[facility] Mbxiyhrcih34[address] [place] [id number]. Airam Tripathi RBC 3.51 106/ul Critically low 4.20-5.40 [facility] Comment on above: Performed By: #### C BC ####[facility] Szebaeaild[address] [place] [address]Dr. Airam Triapthi WBC 8.9 103/ul Normal 4.0-11.0 [facility] Comment on above: Performed By: #### C BC ####[facility] Qvgdeihbak232[address] [place] [address]Dr. Airam Tripathi PROF 14(COMP METB)on 023 Albumin [Mass/Vol] 3.2 g/dL Critically low 3.4-5.0 [facility] Comment on above: Performed By: #### C MP ####[facility] Skxxxhtejg4[address] [place] [address]Dr. Airam Tripathi Albumin/Globulin [Mass ratio] 0.9 {ratio} Normal [facility] Comment on above: Performed By: #### C MP ####[facility] Wdyxcxuwdo[address] [place], [place] [address]Dr. Airam Tripathi ALP [Catalytic activity/Vol] 194 U/L Critically high 46-116 [facility] Comment on above: Performed By: #### C MP ####[facility] Gxfykuboba658[address] [place], [place] [address]Dr. Airam Tripathi ALT [Catalytic activity/Vol] 19 U/L Normal 14-59 [facility] Comment on above: Performed By: #### C MP ####[facility] Mtweuvckcn8480[address] [place], [place] [address]Dr. Airam Tripathi Anion gap [Moles/Vol] 11.3 mmol/L Normal [facility] Comment on above: Performed By: #### C MP ####[facility] Cwyzqbeotg80[address] [place], [place] [address]Dr. Airam Tripathi AST [Catalytic activity/Vol] 24 U/L Normal 15-37 [facility] Comment on above: Performed By: #### C MP ####[facility] Ohnjyqzqcg319[address] [place], [place] [address]Dr. Airam Tripathi Bilirubin [Mass/Vol] 0.2 mg/dL Normal 0.2-1.0 [facility] Comment on above: Performed By: #### C MP ####[facility] Ivnpqzbgrr45[address] [place] [address]Dr. Airam Tripathi Calcium [Mass/Vol] 8.7 mg/dL Normal 8.5-10.1 [facility] Comment on above: Performed By: #### C MP ####[facility] Khpgznfcsb0664 [place] [address]Dr. Airam Tripathi Chloride [Moles/Vol] 101 mmol/L Normal 98-107 [facility] Comment on above: Performed By: #### C MP ####[facility] Uatratjfrs84[address] [place] [address]Dr. Airam Tripathi CO2 [Moles/Vol] 27.2 mmol/L Normal 21.0-32.0 [facility] Comment on above: Performed By: #### C MP ####[facility] Urqzhfaqur[address] [place], [place] [address]Dr. Airam Tripathi Creatinine [Mass/Vol] 1.17 mg/dL Critically high 0.55-1.02 [facility] Comment on above: Performed By: #### C MP ####[facility] Fihcitkrax[address] [place], [place] [address]Dr. Airam Tripathi EGFR-AF MALAGASY 57 mL/min/1.73m2 Critically low >=60 [facility] Comment on above: Performed By: #### C MP ####[facility] Xotfjoyknr[address] [place], [place] [address]Dr. Airam Tripathi EGFR-NON AF MALAGASY 47 mL/min/1.73m2 Critically low >=60 [facility] Comment on above: Performed By: #### C MP ####[facility] Oaxxcgomqs[address] [place], [place] [address]Dr. Airam Tripathi Globulin (S) [Mass/Vol] 3.5 g/dL Normal [facility] Comment on above: Performed By: #### C MP ####[facility] Qypcrfkrkk5[address] [place] [address]Dr. Airam Tripathi Glucose [Mass/Vol] 86 mg/dL Normal 74-106 [facility] Comment on above: Performed By: #### C MP ####[facility] Xhwfqssgsh7048 [place] [address]Dr. Airam Deuce Potassium [Moles/Vol] 5.5 mmol/L Critically high 3.5-5.1 [facility] Comment on above: Performed By: #### C MP ####[facility] Zqengwogry8[address] [place] [address]Dr. Airam Tripathi Protein [Mass/Vol] 6.7 g/dL Normal 6.4-8.2 [facility] Comment on above: Performed By: #### C MP ####[facility] Wtiloppjdj26[address] [place], [place] [address]Dr. Airam Tripathi Sodium [Moles/Vol] 134 mmol/L Critically low 136-145 [facility] Comment on above: Performed By: #### C MP ####[facility] Fvivnmgqqz540[address] [place], [place] [address]Dr. Airam Tripathi Urea nitrogen [Mass/Vol] 26.0 mg/dL Critically high 7.0-18.0 [facility] Comment on above: Performed By: #### C MP ####[facility] Rtshfgkshn134[address] [place], [place] [address]Dr. Airam Tripathi Urea nitrogen/Creatinine [Mass ratio] 22.2 mg/mg Normal [facility] Comment on above: Performed By: #### C MP ####[facility] Lfydlzsjqu4[address] [place], [place] [address]Dr. Airam Tripathi OSMOLALITYon 07-08-2022 Osmolality [Osmolality] 273 mosm/kg Critically low 275-295 [facility] Comment on above: Performed By: #### O SMO ####[facility] Lihfldcbfp17[address] [place], [place] [address]Dr. Airam Tripathi CBC AUTO DIFFon 07-07-2022 BASO # 0.0 103/ul Normal 0.0-0.1 [facility] Comment on above: Performed By: #### C BC ####[facility] Vsniarxdho[address] [place], [place] [address]Dr. Airam Tripathi Basophils/100 WBC (Bld) 0.4 % Normal 0.2-2.0 [facility] Comment on above: Performed By: #### C BC ####[facility] Hhimqfaadk[address] [place] [address]DrKianna Tripathi EO # 0.1 103/ul Normal 0.0-0.7 [facility] Comment on above: Performed By: #### C BC ####[facility] Igifpzaljh8383 [place] [address]DrKianna Selenaneil Tripathi Eosinophils/100 WBC (Bld) 1.6 % Normal 0.9-7.0 [facility] Comment on above: Performed By: #### C BC ####[facility] Tpszatzeku8665[address] [place], [place] [address]Dr. Airam Tripathi Erythrocyte distribution width (RBC) [Ratio] 13.1 % Normal 11.0-15.0 [facility] Comment on above: Performed By: #### C BC ####[facility] Sevwhjhtig8[address] [place], [place] [address]DrKianna Tripathi Hematocrit (Bld) [Volume fraction] 33.7 % Critically low 36.0-48.0 [facility] Comment on above: Performed By: #### C BC ####[facility] Cybyeckpwl[address] [place], [place] [address]DrKianna Tripathi Hemoglobin (Bld) [Mass/Vol] 9.9 g/dL Critically low 12.0-16.0 [facility] Comment on above: Performed By: #### C BC ####[facility] Jzyhwcwipl[address] [place], [place] [address]DrKianna Tripathi IG # 0.05 10e3/ul Critically high 0.00-0.03 [facility] Comment on above: Performed By: #### C BC ####[facility] Veuajcdoht[address] [place], [place] [address]DrKianna Tripathi IG % 0.6 % Critically high 0.0-0.5 [facility] Comment on above: Performed By: #### C BC ####[facility] Nxnvvspnay46[address] [place], [place] [address]DrKianna Tripathi LYMPH # 1.2 103/ul Normal 1.2-3.8 [facility] Comment on above: Performed By: #### C BC ####[facility] Wyinyuchzp5[address] [place] [address]Dr. Airam Tripathi Lymphocytes/100 WBC (Bld) 15.5 % Critically low 20.5-60.0 [facility] Comment on above: Performed By: #### C BC ####[facility] Ftiaafismb[address] [place] [address]DrKianna Tripathi MANUAL DIFF REQ NO Normal [facility] Comment on above: Performed By: #### C BC ####[facility] Cgveqmseyc4235 [place] [address]DrKianna Tripathi MCH (RBC) [Entitic mass] 28.7 pg Normal 26.7-34.0 [facility] Comment on above: Performed By: #### C BC ####[facility] Mxxluiwujl07[address] [place], [place] [address]Dr. Airam Tripathi MCHC (RBC) [Mass/Vol] 29.4 g/dL Critically low 29.9-35.2 [facility] Comment on above: Performed By: #### C BC ####[facility] Hzyalmgqed[address] [place], [place] [address]DrKianna Tripathi MCV (RBC) [Entitic vol] 97.7 fL Normal 81.0-99.0 [facility] Comment on above: Performed By: #### C BC ####[facility] Hvzjbarndh64[address] [place], [place] [address]Dr. Airam Tripathi MONO # 0.6 103/ul Normal 0.3-0.8 [facility] Comment on above: Performed By: #### C BC ####[facility] Hppajsbbvo[address] [place], [place] [address]DrKianna Tripathi Monocytes/100 WBC (Bld) 7.7 % Normal 1.7-12.0 [facility] Comment on above: Performed By: #### C BC ####[facility] Ctzlcbsdgi[address] [place], [place] [address]DrKianna Tripathi NEUT # 5.9 103/ul Normal 1.4-6.5 [facility] Comment on above: Performed By: #### C BC ####[facility] Fcvfbqzqlr5845 [place] [address]Dr. Airam Tripathi Neutrophils/100 WBC (Bld) 74.2 % Normal 43.0-75.0 [facility] Comment on above: Performed By: #### C BC ####[facility] Ygpllzldyk7193 [place] [address]Dr. Airam Tripathi Platelet mean volume (Bld) [Entitic vol] 9.4 fL Critically low 9.5-13.5 [facility] Comment on above: Performed By: #### C BC ####[facility] Gjfqhmneju[address] [place], [place] [address]Dr. Airam Tripathi PLT 331 103/ul Normal 150-450 [facility] Comment on above: Performed By: #### C BC ####[facility] Gvtryalkop[address] [place], [place] [address]Dr. Airam Tripathi RBC 3.45 106/ul Critically low 4.20-5.40 [facility] Comment on above: Performed By: #### C BC ####[facility] Nkkznwjsuy016[address] [place], [place] [address]Dr. Airam Tripathi WBC 7.9 103/ul Normal 4.0-11.0 [facility] Comment on above: Performed By: #### C BC ####[facility] Pbezgcilpx[address] [place], [place] [address]DrKianna Tripathi PROF 14(COMP METB)on 023 Albumin [Mass/Vol] 3.4 g/dL Normal 3.4-5.0 [facility] Comment on above: Performed By: #### C MP ####[facility] Jvckadjgfi[address] [place], [place] [address]DrKianna Tripathi Albumin/Globulin [Mass ratio] 1.1 {ratio} Normal [facility] Comment on above: Performed By: #### C MP ####[facility] Yctvkwrmel27[address] [place] [address]Dr. Airam Tripathi ALP [Catalytic activity/Vol] 197 U/L Critically high 46-116 [facility] Comment on above: Performed By: #### C MP ####[facility] Uojmzgvryc0[address] [place] [id number]. Airam Tripathi ALT [Catalytic activity/Vol] 18 U/L Normal 14-59 [facility] Comment on above: Performed By: #### C MP ####[facility] Zyyngeqxxh5131 [place] [id number]. Airam Tripathi Anion gap [Moles/Vol] 12.3 mmol/L Normal [facility] Comment on above: Performed By: #### C MP ####[facility] Ysofncnvhx1206 [place] [id number]. Airam Tripathi AST [Catalytic activity/Vol] 26 U/L Normal 15-37 [facility] Comment on above: Performed By: #### C MP ####[facility] Dvlxnnylpc5788 [place] [address]Dr. Airam Deuce Bilirubin [Mass/Vol] 0.3 mg/dL Normal 0.2-1.0 [facility] Comment on above: Performed By: #### C MP ####[facility] Fhykwvuadu5476 [place] [id number]. Airam Deuce Calcium [Mass/Vol] 8.6 mg/dL Normal 8.5-10.1 [facility] Comment on above: Performed By: #### C MP ####[facility] Iknnwobgni8136 [place] [id number]. Airam Deuce Chloride [Moles/Vol] 96 mmol/L Critically low 98-107 [facility] Comment on above: Performed By: #### C MP ####[facility] Gcqfredwmz4948 [place] [id number]. Airam Deuce CO2 [Moles/Vol] 27.8 mmol/L Normal 21.0-32.0 [facility] Comment on above: Performed By: #### C MP ####[facility] Kbhflubsem5374 [place] [id number]. Airam Deuce Creatinine [Mass/Vol] 1.55 mg/dL Critically high 0.55-1.02 [facility] Comment on above: Performed By: #### C MP ####[facility] Vbltpvsuvw8119 [place] [id number]. Airam Tripathi EGFR-AF MALAGASY 41 mL/min/1.73m2 Critically low >=60 [facility] Comment on above: Performed By: #### C MP ####[facility] Bgodckbcnj5184 [place] [id number]. Airam Tripathi EGFR-NON AF MALAGASY 34 mL/min/1.73m2 Critically low >=60 [facility] Comment on above: Performed By: #### C MP ####[facility] Dbzsqrjdkj3152 [place] [address]Dr. Airam Deuce Globulin (S) [Mass/Vol] 3.2 g/dL Normal [facility] Comment on above: Performed By: #### C MP ####[facility] Fqwzzdtoyt6452 [place] [address]Dr. Selenaneil Deuce Glucose [Mass/Vol] 87 mg/dL Normal 74-106 [facility] Comment on above: Performed By: #### C MP ####[facility] Qedggmfhib4915 [place] [address]Dr. Airam Deuce Potassium [Moles/Vol] 5.1 mmol/L Normal 3.5-5.1 [facility] Comment on above: Performed By: #### C MP ####[facility] Rcphqhyngg5723 [place] [address]Dr. Selenaneil Deuce Protein [Mass/Vol] 6.6 g/dL Normal 6.4-8.2 [facility] Comment on above: Performed By: #### C MP ####[facility] Hdhnjwclha37[address] [place] [address]Dr. Airam Deuce Sodium [Moles/Vol] 131 mmol/L Critically low 136-145 [facility] Comment on above: Performed By: #### C MP ####[facility] Nmmjzedjuw8697 [place] [id number]. Airam Tripathi Urea nitrogen [Mass/Vol] 31.0 mg/dL Critically high 7.0-18.0 [facility] Comment on above: Performed By: #### C MP ####[facility] Pjcjpodsqp1771 [place] [address]Dr. Airam Tripathi Urea nitrogen/Creatinine [Mass ratio] 20.0 mg/mg Normal [facility] Comment on above: Performed By: #### C MP ####[facility] Srkhxgjcju227[address] [place], [place] [address]Dr. Airam Tripathi OSMOLALITYon 07-02-2022 Osmolality [Osmolality] 281 mosm/kg Normal 275-295 [facility] Comment on above: Performed By: #### O SMO ####[facility] Yjilngdiji[address] [place], [place] [address]Dr. Airam Tripathi CBC AUTO DIFFon 06-29-2022 BASO # 0.0 103/ul Normal 0.0-0.1 [facility] Comment on above: Performed By: #### C BC ####[facility] Yqxiwblziy[address] [place], [place] [address]DrKianna Tripathi Basophils/100 WBC (Bld) 0.3 % Normal 0.2-2.0 [facility] Comment on above: Performed By: #### C BC ####[facility] Oyhkayerav[address] [place], [place] [address]DrKianna Tripathi EO # 0.2 103/ul Normal 0.0-0.7 [facility] Comment on above: Performed By: #### C BC ####[facility] Tcgrhnyxdb726[address] [place], [place] [address]Dr. Airam Tripathi Eosinophils/100 WBC (Bld) 2.3 % Normal 0.9-7.0 [facility] Comment on above: Performed By: #### C BC ####[facility] Ebwovhoaek[address] [place], [place] [address]DrKianna Tripathi Erythrocyte distribution width (RBC) [Ratio] 13.2 % Normal 11.0-15.0 [facility] Comment on above: Performed By: #### C BC ####[facility] Gakcxnyumq17[address] [place], [place] [address]DrKianna Tripathi Hematocrit (Bld) [Volume fraction] 28.2 % Critically low 36.0-48.0 [facility] Comment on above: Performed By: #### C BC ####[facility] Szlobpunso28[address] [place] [address]DrKianna Tripathi Hemoglobin (Bld) [Mass/Vol] 9.1 g/dL Critically low 12.0-16.0 [facility] Comment on above: Performed By: #### C BC ####[facility] Ucsdxvffuc[address] [place], [place] [address]DrKianna Tripathi IG # 0.03 10e3/ul Normal 0.00-0.03 [facility] Comment on above: Performed By: #### C BC ####[facility] Nkimrmuznn05[address] [place], [place] [address]DrKianna Tripathi IG % 0.4 % Normal 0.0-0.5 [facility] Comment on above: Performed By: #### C BC ####[facility] Pwiftijmbn[address] [place], [place] [address]DrKianna Tripathi LYMPH # 1.0 103/ul Critically low 1.2-3.8 [facility] Comment on above: Performed By: #### C BC ####[facility] Mkhwpovfnw[address] [place], [place] [address]DrKianna Tripathi Lymphocytes/100 WBC (Bld) 12.8 % Critically low 20.5-60.0 [facility] Comment on above: Performed By: #### C BC ####[facility] Krnqlodjkp[address] [place], [place] [address]DrKianna Tripathi MANUAL DIFF REQ NO Normal [facility] Comment on above: Performed By: #### C BC ####[facility] Upqjlhcvtm[address] [place], [place] [address]DrKinana Tripathi MCH (RBC) [Entitic mass] 29.9 pg Normal 26.7-34.0 [facility] Comment on above: Performed By: #### C BC ####[facility] Nwimvrpdol[address] [place], [place] [address]DrKianna Tripathi MCHC (RBC) [Mass/Vol] 32.3 g/dL Normal 29.9-35.2 [facility] Comment on above: Performed By: #### C BC ####[facility] Ergxoqaxoh87[address] [place] [address]DrKianna Tripathi MCV (RBC) [Entitic vol] 92.8 fL Normal 81.0-99.0 [facility] Comment on above: Performed By: #### C BC ####[facility] Majvbyezuf5704 [place] [address]DrKianna Tripathi MONO # 0.5 103/ul Normal 0.3-0.8 [facility] Comment on above: Performed By: #### C BC ####[facility] Dxszesakyv[address] [place], [place] [address]DrKianna Tripathi Monocytes/100 WBC (Bld) 6.0 % Normal 1.7-12.0 [facility] Comment on above: Performed By: #### C BC ####[facility] Zueexvdajc[address] [place], [place] [address]DrKianna Tripathi NEUT # 6.0 103/ul Normal 1.4-6.5 [facility] Comment on above: Performed By: #### C BC ####[facility] Ixznjtujkv[address] [place], [place] [address]DrKianna Tripathi Neutrophils/100 WBC (Bld) 78.2 % Critically high 43.0-75.0 [facility] Comment on above: Performed By: #### C BC ####[facility] Cqtotbjoxh[address] [place], [place] [address]DrKianna Tripathi Platelet mean volume (Bld) [Entitic vol] 9.0 fL Critically low 9.5-13.5 [facility] Comment on above: Performed By: #### C BC ####[facility] Qxwiydkwzy[address] [place], [place] [address]DrKianna Tripathi PLT 332 103/ul Normal 150-450 [facility] Comment on above: Performed By: #### C BC ####[facility] Jvkoeacxdc[address] [place], [place] [address]DrKianna Tripathi RBC 3.04 106/ul Critically low 4.20-5.40 [facility] Comment on above: Performed By: #### C BC ####[facility] Ztzyjadwad19[address] [place] [address]Dr. Airam Tripathi WBC 7.7 103/ul Normal 4.0-11.0 [facility] Comment on above: Performed By: #### C BC ####[facility] Ghscgsfqql[address] [place], [place] [address]DrKianna Tripathi PROF 14(COMP METB)on 023 Albumin [Mass/Vol] 3.2 g/dL Critically low 3.4-5.0 [facility] Comment on above: Performed By: #### C MP ####[facility] Qfplwiuquu[address] [place], [place] [address]Dr. Airam Tripathi Albumin/Globulin [Mass ratio] 0.9 {ratio} Normal [facility] Comment on above: Performed By: #### C MP ####[facility] Petsyaqmrw[address] [place], [place] [address]Dr. Airam Tripathi ALP [Catalytic activity/Vol] 135 U/L Critically high 46-116 [facility] Comment on above: Performed By: #### C MP ####[facility] Biyywcwetx[address] [place], [place] [address]Dr. Airam Tripathi ALT [Catalytic activity/Vol] 25 U/L Normal 14-59 [facility] Comment on above: Performed By: #### C MP ####[facility] Jdplzvntyl[address] [place], [place] [address]DrKianna Tripathi Anion gap [Moles/Vol] 9.1 mmol/L Normal [facility] Comment on above: Performed By: #### C MP ####[facility] Sdtozrjgid[address] [place], [place] [address]Dr. Airam Tripathi AST [Catalytic activity/Vol] 34 U/L Normal 15-37 [facility] Comment on above: Performed By: #### C MP ####[facility] Gccvfscszd[address] [place], [place] [address]Dr. Airam Tripathi Bilirubin [Mass/Vol] 0.3 mg/dL Normal 0.2-1.0 [facility] Comment on above: Performed By: #### C MP ####[facility] Itdmnylgqv0041 [place] [address]Dr. Airam Tripathi Calcium [Mass/Vol] 8.6 mg/dL Normal 8.5-10.1 [facility] Comment on above: Performed By: #### C MP ####[facility] Xdfkhcvepk[address] [place], [place] [address]Dr. Airam Tripathi Chloride [Moles/Vol] 99 mmol/L Normal 98-107 [facility] Comment on above: Performed By: #### C MP ####[facility] Koefrragmi[address] [place], [place] [address]Dr. Airam Tripathi CO2 [Moles/Vol] 29.1 mmol/L Normal 21.0-32.0 [facility] Comment on above: Performed By: #### C MP ####[facility] Bvofqnnpzh[address] [place], [place] [address]Dr. Airam Tripathi Creatinine [Mass/Vol] 1.40 mg/dL Critically high 0.55-1.02 [facility] Comment on above: Performed By: #### C MP ####[facility] Qtnmibbwxt[address] [place], [place] [address]Dr. Airam Tripathi EGFR-AF MALAGASY 46 mL/min/1.73m2 Critically low >=60 [facility] Comment on above: Performed By: #### C MP ####[facility] Cbvickwpag[address] [place], [place] [address]Dr. Airam Deuce EGFR-NON AF MALAGASY 38 mL/min/1.73m2 Critically low >=60 [facility] Comment on above: Performed By: #### C MP ####[facility] Cbmbxfyrub[address] [place], [place] [address]Dr. Airam Deuce Globulin (S) [Mass/Vol] 3.4 g/dL Normal [facility] Comment on above: Performed By: #### C MP ####[facility] Qaclnptmzm[address] [place], [place] [address]Dr. Airam Deuce Glucose [Mass/Vol] 83 mg/dL Normal 74-106 [facility] Comment on above: Performed By: #### C MP ####[facility] Odxlfmsikn[address] [place], [place] [address]Dr. Airam Tripathi Potassium [Moles/Vol] 4.2 mmol/L Normal 3.5-5.1 [facility] Comment on above: Performed By: #### C MP ####[facility] Oxscaguvnh[address] [place], [place] [address]Dr. Airam Tripathi Protein [Mass/Vol] 6.6 g/dL Normal 6.4-8.2 [facility] Comment on above: Performed By: #### C MP ####[facility] Xcbaxankry[address] [place], [place] [address]Dr. Airam Tripathi Sodium [Moles/Vol] 133 mmol/L Critically low 136-145 [facility] Comment on above: Performed By: #### C MP ####[facility] Dcxkizbuyf[address] [place], [place] [address]Dr. Airam Tripathi Urea nitrogen [Mass/Vol] 37.0 mg/dL Critically high 7.0-18.0 [facility] Comment on above: Performed By: #### C MP ####[facility] Oquklxtxdy[address] [place], [place] [address]Dr. Airam Tripathi Urea nitrogen/Creatinine [Mass ratio] 26.4 mg/mg Normal [facility] Comment on above: Performed By: #### C MP ####[facility] Uqjyxktqjg[address] [place], [place] [address]Dr. Airam Tripathi BNPon 06-18-2022 Natriuretic peptide B (Bld) [Mass/Vol] 5826.0 pg/mL Critically high <=900.0 [facility] Comment on above: Performed By: #### B ADMINISTRATIVE OFFICER, CMP ####[facility] Wunfumzdlp[address] [place], [place] [address]Dr. Airam Tripathi CBC AUTO DIFFon 06-18-2022 BASO # 0.0 103/ul Normal 0.0-0.1 [facility] Comment on above: Performed By: #### C BC ####[facility] [address] [place] [address]Dr. Airam Tripathi Basophils/100 WBC (Bld) 0.4 % Normal 0.2-2.0 [facility] Comment on above: Performed By: #### C BC ####[facility] Qxgknrkgtx[address] [place], [place] [address]Dr. Airam Tripathi EO # 0.1 103/ul Normal 0.0-0.7 [facility] Comment on above: Performed By: #### C BC ####[facility] Cutrijcggw[address] [place], [place] [address]Dr. Airam Tripathi Eosinophils/100 WBC (Bld) 1.3 % Normal 0.9-7.0 [facility] Comment on above: Performed By: #### C BC ####[facility] Vdjxpbdhht[address] [place], [place] [address]Dr. Airam Tripathi Erythrocyte distribution width (RBC) [Ratio] 13.4 % Normal 11.0-15.0 [facility] Comment on above: Performed By: #### C BC ####[facility] Ijrsunwcsr[address] [place], [place] [address]Dr. Airam Tripathi Hematocrit (Bld) [Volume fraction] 27.3 % Critically low 36.0-48.0 [facility] Comment on above: Performed By: #### C BC ####[facility] Gujptmufat[address] [place], [place] [address]Dr. Airam Tripathi Hemoglobin (Bld) [Mass/Vol] 8.6 g/dL Critically low 12.0-16.0 [facility] Comment on above: Performed By: #### C BC ####[facility] Thzbbtosww18[address] [place], [place] [address]Dr. Airam Tripathi IG # 0.08 10e3/ul Critically high 0.00-0.03 [facility] Comment on above: Performed By: #### C BC ####[facility] Abppxmcsis[address] [place], [place] [address]Dr. Airam Tripathi IG % 0.8 % Critically high 0.0-0.5 [facility] Comment on above: Performed By: #### C BC ####[facility] [address] [place] [id number]. Airam Tripathi LYMPH # 1.9 103/ul Normal 1.2-3.8 [facility] Comment on above: Performed By: #### C BC ####[facility] Hyndnivolf[address] [place] [id number]. Airam Tripathi Lymphocytes/100 WBC (Bld) 19.3 % Critically low 20.5-60.0 [facility] Comment on above: Performed By: #### C BC ####[facility] Jlpfs[address]qaxp[address] [place] [phone]. Airam Tripathi MANUAL DIFF REQ NO Normal [facility] Comment on above: Performed By: #### C BC ####[facility] Tqthuibplb[address] [place] [address]Dr. Airam Tripathi MCH (RBC) [Entitic mass] 29.6 pg Normal 26.7-34.0 [facility] Comment on above: Performed By: #### C BC ####[facility] Olpxvmdbed[address] [place] [address]Dr. Airam Tripathi MCHC (RBC) [Mass/Vol] 31.5 g/dL Normal 29.9-35.2 [facility] Comment on above: Performed By: #### C BC ####[facility] Jbpjsukkks[address] [place] [phone]. Airam Tripathi MCV (RBC) [Entitic vol] 93.8 fL Normal 81.0-99.0 [facility] Comment on above: Performed By: #### C BC ####[facility] Dnhaloilku5494 [place] [phone]. Airam Tripathi MONO # 0.6 103/ul Normal 0.3-0.8 [facility] Comment on above: Performed By: #### C BC ####[facility] Tiittdrhaf[address] [place] [phone]. Airam Tripathi Monocytes/100 WBC (Bld) 6.5 % Normal 1.7-12.0 [facility] Comment on above: Performed By: #### C BC ####[facility] Gvifhwrpib[address] [place] [phone]. Airam Tripathi NEUT # 6.9 103/ul Critically high 1.4-6.5 [facility] Comment on above: Performed By: #### C BC ####[facility] Nabsnicyuk[address] [place] [phone]. Airam Tripathi Neutrophils/100 WBC (Bld) 71.7 % Normal 43.0-75.0 [facility] Comment on above: Performed By: #### C BC ####[facility] Xyuyivazwc3036 [place] [address]Dr. Airam Tripathi Platelet mean volume (Bld) [Entitic vol] 8.5 fL Critically low 9.5-13.5 [facility] Comment on above: Performed By: #### C BC ####[facility] Q[address]tadipbw[address] [place] [address]Dr. Airam Tripathi PLT 295 103/ul Normal 150-450 [facility] Comment on above: Performed By: #### C BC ####[facility] Yxgkxrwgzh2346 [place] [address]Dr. Airam Deuce RBC 2.91 106/ul Critically low 4.20-5.40 [facility] Comment on above: Performed By: #### C BC ####[facility] Udxbvfkypj6[address] [place] [address]Dr. Airam Tripathi WBC 9.7 103/ul Normal 4.0-11.0 [facility] Comment on above: Performed By: #### C BC ####[facility] Svxwlzcirl8[address] [place] [address]Dr. Airam Tripathi PROF 14(COMP METB)on 022 Albumin [Mass/Vol] 2.8 g/dL Critically low 3.4-5.0 [facility] Comment on above: Performed By: #### B ADMINISTRATIVE OFFICER, CMP ####[facility] Gskcexqicq5[address] [place] [phone]. Airam Tripathi Albumin/Globulin [Mass ratio] 0.9 {ratio} Normal [facility] Comment on above: Performed By: #### B ADMINISTRATIVE OFFICER, CMP ####[facility] Czrgmjraae[address] [place] [phone]. Airam Tripathi ALP [Catalytic activity/Vol] 125 U/L Critically high 46-116 [facility] Comment on above: Performed By: #### B ADMINISTRATIVE OFFICER, CMP ####[facility] Fpoymldiof59[address] [place] [phone]. Airam Tripathi ALT [Catalytic activity/Vol] 16 U/L Normal 14-59 [facility] Comment on above: Performed By: #### B ADMINISTRATIVE OFFICER, CMP ####[facility] Hkbulamink[address] [place], [place] [address]Dr. Airam Tripathi Anion gap [Moles/Vol] 11.4 mmol/L Normal [facility] Comment on above: Performed By: #### B ADMINISTRATIVE OFFICER, CMP ####[facility] Thxzmavxpk6[address] [place], [place] [address]Dr. Airam Deuce AST [Catalytic activity/Vol] 23 U/L Normal 15-37 [facility] Comment on above: Performed By: #### B ADMINISTRATIVE OFFICER, CMP ####[facility] Ybzjsakeky[address] [place], [place] [address]Dr. Airam Tripathi Bilirubin [Mass/Vol] 0.2 mg/dL Normal 0.2-1.0 [facility] Comment on above: Performed By: #### B ADMINISTRATIVE OFFICER, CMP ####[facility] Jsjetldfww[address] [place], [place] [address]Dr. Airam Tripathi Calcium [Mass/Vol] 8.1 mg/dL Critically low 8.5-10.1 [facility] Comment on above: Performed By: #### B ADMINISTRATIVE OFFICER, CMP ####[facility] Yslhqizjun8[address] [place], [place] [address]Dr. Airam Tripathi Chloride [Moles/Vol] 96 mmol/L Critically low 98-107 [facility] Comment on above: Performed By: #### B ADMINISTRATIVE OFFICER, CMP ####[facility] Cupsrtbwgl76[address] [place], [place] [address]Dr. Airam Tripathi CO2 [Moles/Vol] 26.6 mmol/L Normal 21.0-32.0 [facility] Comment on above: Performed By: #### B ADMINISTRATIVE OFFICER, CMP ####[facility] Mwlwrpawsq5[address] [place] [phone]. Airam Tripathi Creatinine [Mass/Vol] 1.31 mg/dL Critically high 0.55-1.02 [facility] Comment on above: Performed By: #### B ADMINISTRATIVE OFFICER, CMP ####[facility] Qmfcaaznmh9697 [place] [phone]. Airam Tripathi EGFR-AF MALAGASY 50 mL/min/1.73m2 Critically low >=60 [facility] Comment on above: Performed By: #### B ADMINISTRATIVE OFFICER, CMP ####[facility] Xmlmyumjzn3917 [place] [phone]. Airam Tripathi EGFR-NON AF MALAGASY 41 mL/min/1.73m2 Critically low >=60 [facility] Comment on above: Performed By: #### B ADMINISTRATIVE OFFICER, CMP ####[facility] Sodrntuirk[address] [place], [place] [address]Dr. Airam Tripathi Globulin (S) [Mass/Vol] 3.0 g/dL Normal [facility] Comment on above: Performed By: #### B ADMINISTRATIVE OFFICER, CMP ####[facility] Blzzxxcnzi45[address] [place] [address]Dr. Airam Tripathi Glucose [Mass/Vol] 82 mg/dL Normal 74-106 [facility] Comment on above: Performed By: #### B ADMINISTRATIVE OFFICER, CMP ####[facility] Abudrkxmox87[address] [place] [phone]. Airam Tripathi Potassium [Moles/Vol] 4.0 mmol/L Normal 3.5-5.1 [facility] Comment on above: Performed By: #### B ADMINISTRATIVE OFFICER, CMP ####[facility] Deywogdepe[address] [place] [phone]. Airam Tripathi Protein [Mass/Vol] 5.8 g/dL Critically low 6.4-8.2 [facility] Comment on above: Performed By: #### B ADMINISTRATIVE OFFICER, CMP ####[facility] Ewrvkkshmz28[address] [place] [phone]. Airam Tripathi Sodium [Moles/Vol] 130 mmol/L Critically low 136-145 [facility] Comment on above: Performed By: #### B ADMINISTRATIVE OFFICER, CMP ####[facility] Zugftqoyzl[address] [place] [address]Dr. Airam Tripathi Urea nitrogen [Mass/Vol] 19.0 mg/dL Critically high 7.0-18.0 [facility] Comment on above: Performed By: #### B ADMINISTRATIVE OFFICER, CMP ####[facility] Thlepycqzp[address] [place], [place] [address]Dr. Airam Tripathi Urea nitrogen/Creatinine [Mass ratio] 14.5 mg/mg Normal [facility] Comment on above: Performed By: #### B ADMINISTRATIVE OFFICER, CMP ####[facility] Kqawjmzotv[address] [place], [place] [address]Dr. Airam Tripathi BNPon 06-17-2022 Natriuretic peptide B (Bld) [Mass/Vol] 2510.0 pg/mL Critically high <=900.0 [facility] Comment on above: Performed By: #### B ADMINISTRATIVE OFFICER, CMP ####[facility] Ntvemlzgip[address] [place], [place] [address]Dr. Airam Tripathi CBC AUTO DIFFon 06-17-2022 BASO # 0.0 103/ul Normal 0.0-0.1 [facility] Comment on above: Performed By: #### C BC ####[facility] Cstbgyadan[address] [place], [place] [address]Dr. Airam Deuce Basophils/100 WBC (Bld) 0.4 % Normal 0.2-2.0 [facility] Comment on above: Performed By: #### C BC ####[facility] Taafyqzwev[address] [place], [place] [address]Dr. Airam Tripathi EO # 0.0 103/ul Normal 0.0-0.7 [facility] Comment on above: Performed By: #### C BC ####[facility] Axmtrwcfbn00[address] [place], [place] [address]Dr. Airam Deuce Eosinophils/100 WBC (Bld) 0.3 % Critically low 0.9-7.0 [facility] Comment on above: Performed By: #### C BC ####[facility] Bxmcckojjg[address] [place] [address]Dr. Airam Tripathi Erythrocyte distribution width (RBC) [Ratio] 13.6 % Normal 11.0-15.0 [facility] Comment on above: Performed By: #### C BC ####[facility] Rezvvzjavx3694 [place] [address]Dr. Airam Tripathi Hematocrit (Bld) [Volume fraction] 28.9 % Critically low 36.0-48.0 [facility] Comment on above: Performed By: #### C BC ####[facility] Awxizdwlmy[address] [place], [place] [address]Dr. Airam Tripathi Hemoglobin (Bld) [Mass/Vol] 8.9 g/dL Critically low 12.0-16.0 [facility] Comment on above: Performed By: #### C BC ####[facility] Attejlidmi[address] [place], [place] [address]Dr. Selenaneil Tripathi IG # 0.10 10e3/ul Critically high 0.00-0.03 [facility] Comment on above: Performed By: #### C BC ####[facility] Qirdexobvh[address] [place], [place] [address]Dr. Airam Tripathi IG % 1.3 % Critically high 0.0-0.5 [facility] Comment on above: Performed By: #### C BC ####[facility] Emfscuidqs92[address] [place], [place] [address]Dr. Airam Tripathi LYMPH # 0.7 103/ul Critically low 1.2-3.8 [facility] Comment on above: Performed By: #### C BC ####[facility] Kmurfhshqk[address] [place], [place] [address]Dr. Selenaneil Tripathi Lymphocytes/100 WBC (Bld) 8.1 % Critically low 20.5-60.0 [facility] Comment on above: Performed By: #### C BC ####[facility] Wwwknpvbnb[address] [place], [place] [address]Dr. Airam Tripathi MANUAL DIFF REQ NO Normal [facility] Comment on above: Performed By: #### C BC ####[facility] Srupoxzmpy[address] [place] [phone]. Airam Tripathi MCH (RBC) [Entitic mass] 29.4 pg Normal 26.7-34.0 [facility] Comment on above: Performed By: #### C BC ####[facility] Kxlwusqnxi5121 [place] [phone]. Airam Tripathi MCHC (RBC) [Mass/Vol] 30.8 g/dL Normal 29.9-35.2 [facility] Comment on above: Performed By: #### C BC ####[facility] Btfjrberwv7207 [place] [phone]. Airam Tripathi MCV (RBC) [Entitic vol] 95.4 fL Normal 81.0-99.0 [facility] Comment on above: Performed By: #### C BC ####[facility] Vxrkwogkxc[address] [place], [place] [address]Dr. Airam Deuce MONO # 0.3 103/ul Normal 0.3-0.8 [facility] Comment on above: Performed By: #### C BC ####[facility] Cnimqahaqp66[address] [place] [address]Dr. Selenaneil Tripathi Monocytes/100 WBC (Bld) 3.1 % Normal 1.7-12.0 [facility] Comment on above: Performed By: #### C BC ####[facility] Rsixdectwh[address] [place], [place] [address]Dr. Airam Tripathi NEUT # 7.0 103/ul Critically high 1.4-6.5 [facility] Comment on above: Performed By: #### C BC ####[facility] Ayduzfdgqa[address] [place], [place] [address]Dr. Selenaneil Tripathi Neutrophils/100 WBC (Bld) 86.8 % Critically high 43.0-75.0 [facility] Comment on above: Performed By: #### C BC ####[facility] Wgpldloyvt[address] [place], [place] [address]Dr. Airam Deuce Platelet mean volume (Bld) [Entitic vol] 8.3 fL Critically low 9.5-13.5 [facility] Comment on above: Performed By: #### C BC ####[facility] Hnwtblmlrr5628 [place] [phone]. Airam Tripathi PLT 279 103/ul Normal 150-450 [facility] Comment on above: Performed By: #### C BC ####[facility] Bigiddgyoc2473 [place] [phone]. Airam Tripathi RBC 3.03 106/ul Critically low 4.20-5.40 [facility] Comment on above: Performed By: #### C BC ####[facility] Kgeqihhvtz3374 [place] [phone]. Airam Tripathi WBC 8.0 103/ul Normal 4.0-11.0 [facility] Comment on above: Performed By: #### C BC ####[facility] Nthjistfix4760 [place] [address]Dr. Airam Tripathi PROF 14(COMP METB)on 06-17- 022 Albumin [Mass/Vol] 2.8 g/dL Critically low 3.4-5.0 [facility] Comment on above: Performed By: #### B ADMINISTRATIVE OFFICER, CMP ####[facility] Ffdthqeexd[address] [place], [place] [address]Dr. Airam Tripathi Albumin/Globulin [Mass ratio] 0.9 {ratio} Normal [facility] Comment on above: Performed By: #### B ADMINISTRATIVE OFFICER, CMP ####[facility] Cbshoubfro2704 [place] [address]Dr. Airam Tripathi ALP [Catalytic activity/Vol] 136 U/L Critically high 46-116 [facility] Comment on above: Performed By: #### B ADMINISTRATIVE OFFICER, CMP ####[facility] Anzsiftexk9844 [place] [address]Dr. Airam Tripathi ALT [Catalytic activity/Vol] 17 U/L Normal 14-59 [facility] Comment on above: Performed By: #### B ADMINISTRATIVE OFFICER, CMP ####[facility] Ctehgreccy7[address] [place] [address]Dr. Airam Tripathi Anion gap [Moles/Vol] 12.9 mmol/L Normal [facility] Comment on above: Performed By: #### B ADMINISTRATIVE OFFICER, CMP ####[facility] Zgrvyfsvnq2064 [place] [phone]. Airam Tripathi AST [Catalytic activity/Vol] 24 U/L Normal 15-37 [facility] Comment on above: Performed By: #### B ADMINISTRATIVE OFFICER, CMP ####[facility] Rcrexonpgw1917 [place] [phone]. Airam Tripathi Bilirubin [Mass/Vol] 0.2 mg/dL Normal 0.2-1.0 [facility] Comment on above: Performed By: #### B ADMINISTRATIVE OFFICER, CMP ####[facility] Biikhjgjhz364[address] [place], [place] [address]Dr. Airam Tripathi Calcium [Mass/Vol] 8.7 mg/dL Normal 8.5-10.1 [facility] Comment on above: Performed By: #### B ADMINISTRATIVE OFFICER, CMP ####[facility] Wwmrucjezd[address] [place], [place] [address]Dr. Airam Tripathi Chloride [Moles/Vol] 102 mmol/L Normal 98-107 [facility] Comment on above: Performed By: #### B ADMINISTRATIVE OFFICER, CMP ####[facility] Xktnrmxsji[address] [place], [place] [address]Dr. Airam Tripathi CO2 [Moles/Vol] 23.8 mmol/L Normal 21.0-32.0 [facility] Comment on above: Performed By: #### B ADMINISTRATIVE OFFICER, CMP ####[facility] Yblvgiqome[address] [place], [place] [address]Dr. Airam Tripathi Creatinine [Mass/Vol] 1.08 mg/dL Critically high 0.55-1.02 [facility] Comment on above: Performed By: #### B ADMINISTRATIVE OFFICER, CMP ####[facility] Dpgbaoaqmp[address] [place], [place] [address]Dr. Airam Deuce EGFR-AF MALAGASY >60 Normal >=60 [facility] Comment on above: Performed By: #### B ADMINISTRATIVE OFFICER, CMP ####[facility] Dpoatbhmqh[address] [place], [place] [address]Dr. Airam Tripathi EGFR-NON AF MALAGASY 52 mL/min/1.73m2 Critically low >=60 [facility] Comment on above: Performed By: #### B ADMINISTRATIVE OFFICER, CMP ####[facility] Bipxmhntko5971 [place] [address]Dr. Airam Tripathi Globulin (S) [Mass/Vol] 3.2 g/dL Normal [facility] Comment on above: Performed By: #### B ADMINISTRATIVE OFFICER, CMP ####[facility] Twqnhxrwkw[address] [place], [place] [address]Dr. Airam Tripathi Glucose [Mass/Vol] 99 mg/dL Normal 74-106 [facility] Comment on above: Performed By: #### B ADMINISTRATIVE OFFICER, CMP ####[facility] Cnyvtoabyf[address] [place], [place] [address]Dr. Airam Tripathi Potassium [Moles/Vol] 4.7 mmol/L Normal 3.5-5.1 [facility] Comment on above: Performed By: #### B ADMINISTRATIVE OFFICER, CMP ####[facility] Scduuuegmy[address] [place], [place] [address]Dr. Airam Tripathi Protein [Mass/Vol] 6.0 g/dL Critically low 6.4-8.2 [facility] Comment on above: Performed By: #### B ADMINISTRATIVE OFFICER, CMP ####[facility] Prhcredraj[address] [place], [place] [address]Dr. Airam Tripathi Sodium [Moles/Vol] 134 mmol/L Critically low 136-145 [facility] Comment on above: Performed By: #### B ADMINISTRATIVE OFFICER, CMP ####[facility] Ncxizyhgow[address] [place], [place] [address]Dr. Airam Tripathi Urea nitrogen [Mass/Vol] 19.0 mg/dL Critically high 7.0-18.0 [facility] Comment on above: Performed By: #### B ADMINISTRATIVE OFFICER, CMP ####[facility] Npadfaqxmx[address] [place], [place] [address]Dr. Airam Tripathi Urea nitrogen/Creatinine [Mass ratio] 17.6 mg/mg Normal [facility] Comment on above: Performed By: #### B ADMINISTRATIVE OFFICER, CMP ####[facility] Tmrinsiuww[address] [place], [place] [address]Dr. Airam Tripathi PROTIMEon 06-17-2022 INR Coag (PPP) [Relative time] 1.00 {INR} Normal [facility] Comment on above: Performed By: #### P T ####[facility] Bfbfmzebmu[address] [place], [place] [address]DrKianna Tripathi INR GUIDELINES SEE BELOW Normal [facility] Comment on above: Result Comment: SIDRA RED INR: 2.0 - 3.0 CONDITIONS NOT LISTED BELOW 2.5 - 3.5 FOR PROSTHETIC HEART VALVE REPLACEMENT 2.5 - 3.5 RECURRENT THROMBOSIS Performed By: #### P T ####[facility] Sxwjmwvxhc[address] [place], [place] [address]Dr. Airam Tripathi PT Coag (PPP) [Time] 10.8 s Normal 9.0-11.6 [facility] Comment on above: Performed By: #### P T ####[facility] Dbvywbqoft[address] [place], [place] [address]Dr. Airam Tripathi PTTon 06-17-2022 aPTT Coag (Bld) [Time] 27.2 s Normal 22.3-36.2 [facility] Comment on above: Performed By: #### P TT ####[facility] Nikhguidxh[address] [place], [place] [address]DrKianna Tripathi BNPon 06-16-2022 Natriuretic peptide B (Bld) [Mass/Vol] 2293.0 pg/mL Critically high <=900.0 [facility] Comment on above: Performed By: #### C MP, BNP ####[facility] Sufrjfhhei[address] [place], [place] [address]DrKianna Tripathi CBC AUTO DIFFon 06-16-2022 BASO # 0.0 103/ul Normal 0.0-0.1 [facility] Comment on above: Performed By: #### C BC ####[facility] [address]jb[address]in[address] [place], [place] [address]DrKianna Tripathi Basophils/100 WBC (Bld) 0.4 % Normal 0.2-2.0 [facility] Comment on above: Performed By: #### C BC ####[facility] Jzlcjjwwiv[address] [place], [place] [address]Dr. Airam Tripathi EO # 0.2 103/ul Normal 0.0-0.7 [facility] Comment on above: Performed By: #### C BC ####[facility] [address] [place] [address]Dr. Airam Tripathi Eosinophils/100 WBC (Bld) 3.0 % Normal 0.9-7.0 [facility] Comment on above: Performed By: #### C BC ####[facility] Lkngmgsrwu67[address] [place] [address]Dr. Airam Tripathi Erythrocyte distribution width (RBC) [Ratio] 13.3 % Normal 11.0-15.0 [facility] Comment on above: Performed By: #### C BC ####[facility] Jtgtikpgbn[address] [place], [place] [address]Dr. Airam Tripathi Hematocrit (Bld) [Volume fraction] 26.2 % Critically low 36.0-48.0 [facility] Comment on above: Performed By: #### C BC ####[facility] Nwjtoajuih[address] [place], [place] [address]Dr. Airam Tripathi Hemoglobin (Bld) [Mass/Vol] 8.3 g/dL Critically low 12.0-16.0 [facility] Comment on above: Performed By: #### C BC ####[facility] Ejxgtouezx[address] [place], [place] [address]Dr. Airam Tripathi IG # 0.08 10e3/ul Critically high 0.00-0.03 [facility] Comment on above: Performed By: #### C BC ####[facility] Vlzsypsosl[address] [place], [place] [address]Dr. Airam Tripathi IG % 1.1 % Critically high 0.0-0.5 [facility] Comment on above: Performed By: #### C BC ####[facility] Rxkpwspddg[address] [place], [place] [address]Dr. Airam Tripathi LYMPH # 1.2 103/ul Normal 1.2-3.8 [facility] Comment on above: Performed By: #### C BC ####[facility] Msndugooud[address] [place] [address]Dr. Airam Tripathi Lymphocytes/100 WBC (Bld) 17.3 % Critically low 20.5-60.0 [facility] Comment on above: Performed By: #### C BC ####[facility] V[address]wwrvfyhd[address] [place] [address]Dr. Airam Tripathi MANUAL DIFF REQ NO Normal [facility] Comment on above: Performed By: #### C BC ####[facility] Hfchiochsk[address] [place] [address]Dr. Airam Tripathi MCH (RBC) [Entitic mass] 30.3 pg Normal 26.7-34.0 [facility] Comment on above: Performed By: #### C BC ####[facility] Jgnhqxxvjl[address] [place], [place] [address]Dr. Airam Tripathi MCHC (RBC) [Mass/Vol] 31.7 g/dL Normal 29.9-35.2 [facility] Comment on above: Performed By: #### C BC ####[facility] Nazjnydsmb[address] [place], [place] [address]Dr. Airam Tripathi MCV (RBC) [Entitic vol] 95.6 fL Normal 81.0-99.0 [facility] Comment on above: Performed By: #### C BC ####[facility] Plbvsykhjv[address] [place], [place] [address]Dr. Airam Tripathi MONO # 0.5 103/ul Normal 0.3-0.8 [facility] Comment on above: Performed By: #### C BC ####[facility] Elbmtpxpee[address] [place], [place] [address]Dr. Airam Tripathi Monocytes/100 WBC (Bld) 7.1 % Normal 1.7-12.0 [facility] Comment on above: Performed By: #### C BC ####[facility] Zbztzwbhio[address] [place], [place] [address]Dr. Airam Tripathi NEUT # 5.0 103/ul Normal 1.4-6.5 [facility] Comment on above: Performed By: #### C BC ####[facility] Tyhxiuhprd[address] [place], [place] [address]Dr. Airam Tripathi Neutrophils/100 WBC (Bld) 71.1 % Normal 43.0-75.0 [facility] Comment on above: Performed By: #### C BC ####[facility] Pwppnezizm[address] [place] [address]Dr. Airam Tripathi Platelet mean volume (Bld) [Entitic vol] 8.2 fL Critically low 9.5-13.5 [facility] Comment on above: Performed By: #### C BC ####[facility] Lcughwzsor[address] [place] [address]Dr. Airam Tripathi PLT 247 103/ul Normal 150-450 [facility] Comment on above: Performed By: #### C BC ####[facility] Dkoksrkffv73[address] [place] [address]Dr. Airam Tripathi RBC 2.74 106/ul Critically low 4.20-5.40 [facility] Comment on above: Performed By: #### C BC ####[facility] Lyylkapyzg[address] [place] [address]Dr. Airam Tripathi WBC 7.1 103/ul Normal 4.0-11.0 [facility] Comment on above: Performed By: #### C BC ####[facility] Uykasiaymu[address] [place] [address]Dr. Airam Tripathi CTA CHEST WO W CONon 022 CTA CHEST WO W CON Normal [facility] PROF 14(COMP METB)on 022 Albumin [Mass/Vol] 2.6 g/dL Critically low 3.4-5.0 [facility] Comment on above: Performed By: #### C MP, BNP ####[facility] Zdrekmnayg44[address] [place] [address]Dr. Selenaneil Tripathi Albumin/Globulin [Mass ratio] 0.8 {ratio} Normal [facility] Comment on above: Performed By: #### C MP, BNP ####[facility] Kwijpcuiue[address] [place] [address]Dr. Selenaneil Tripathi ALP [Catalytic activity/Vol] 130 U/L Critically high 46-116 [facility] Comment on above: Performed By: #### C MP, BNP ####[facility] P[address]rrxkjbp[address] [place] [id number]. Airam Tripathi ALT [Catalytic activity/Vol] 12 U/L Critically low 14-59 [facility] Comment on above: Performed By: #### C MP, BNP ####[facility] Ycowyrhola[address] [place] [id number]. Airam Tripathi Anion gap [Moles/Vol] 11.8 mmol/L Normal [facility] Comment on above: Performed By: #### C MP, BNP ####[facility] Gefevycxbg[address] [place], [place] [id number]. Airam Tripathi AST [Catalytic activity/Vol] 22 U/L Normal 15-37 [facility] Comment on above: Performed By: #### C MP, BNP ####[facility] Eomlhvviik[address] [place], [place] [address]Dr. Airam Tripathi Bilirubin [Mass/Vol] 0.2 mg/dL Normal 0.2-1.0 [facility] Comment on above: Performed By: #### C MP, BNP ####[facility] Cdwulyhjlz[address] [place], [place] [address]Dr. Airam Tripathi Calcium [Mass/Vol] 8.0 mg/dL Critically low 8.5-10.1 [facility] Comment on above: Performed By: #### C MP, BNP ####[facility] Hhemurnayi[address] [place], [place] [address]Dr. Airam Tripathi Chloride [Moles/Vol] 104 mmol/L Normal 98-107 [facility] Comment on above: Performed By: #### C MP, BNP ####[facility] Nanwgrasur[address] [place] [phone]. Airam Tripathi CO2 [Moles/Vol] 22.8 mmol/L Normal 21.0-32.0 [facility] Comment on above: Performed By: #### C MP, BNP ####[facility] Ilfjhkouju[address] [place], [place] [address]Dr. Airam Tripathi Creatinine [Mass/Vol] 1.07 mg/dL Critically high 0.55-1.02 [facility] Comment on above: Performed By: #### C MP, BNP ####[facility] Klarwzhyuu[address] [place] [address]Dr. Airam Deuce EGFR-AF MALAGASY >60 Normal >=60 [facility] Comment on above: Performed By: #### C MP, BNP ####[facility] Zcnonpbvgg[address] [place], [place] [address]Dr. Selenaneil Deuce EGFR-NON AF MALAGASY 52 mL/min/1.73m2 Critically low >=60 [facility] Comment on above: Performed By: #### C MP, BNP ####[facility] Bnhymibsti[address] [place], [place] [address]Dr. Airam Tripathi Globulin (S) [Mass/Vol] 3.1 g/dL Normal [facility] Comment on above: Performed By: #### C MP, BNP ####[facility] Igaqrnyuvr[address] [place], [place] [address]Dr. Airam Tripathi Glucose [Mass/Vol] 85 mg/dL Normal 74-106 [facility] Comment on above: Performed By: #### C MP, BNP ####[facility] Hlxqwptffv[address] [place], [place] [address]Dr. Airam Tripathi Potassium [Moles/Vol] 4.6 mmol/L Normal 3.5-5.1 [facility] Comment on above: Performed By: #### C MP, BNP ####[facility] Ymxcbhwwnk[address] [place], [place] [address]Dr. Airam Tripathi Protein [Mass/Vol] 5.7 g/dL Critically low 6.4-8.2 [facility] Comment on above: Performed By: #### C MP, BNP ####[facility] Ouhhvvjzhw[address] [place], [place] [address]Dr. Airam Tripathi Sodium [Moles/Vol] 134 mmol/L Critically low 136-145 [facility] Comment on above: Performed By: #### C MP, BNP ####[facility] Fqqaqaxydt[address] [place], [place] [address]Dr. Airam Tripathi Urea nitrogen [Mass/Vol] 24.0 mg/dL Critically high 7.0-18.0 [facility] Comment on above: Performed By: #### C MP, BNP ####[facility] Khwmgytazh[address] [place], [place] [address]Dr. Airam Tripathi Urea nitrogen/Creatinine [Mass ratio] 22.4 mg/mg Normal [facility] Comment on above: Performed By: #### C MP, BNP ####[facility] Jcnwidqwhj[address] [place], [place] [address]Dr. Airam Tripathi BNPon 06-15-2022 Natriuretic peptide B (Bld) [Mass/Vol] 934.0 pg/mL Critically high <=900.0 [facility] Comment on above: Performed By: #### C MP, BNP ####[facility] Rigfspknal[address] [place], [place] [address]Dr. Airam Tripathi CBC AUTO DIFFon 06-15-2022 BASO # 0.0 103/ul Normal 0.0-0.1 [facility] Comment on above: Performed By: #### C BC ####[facility] Ildkayetxj[address] [place], [place] [address]Dr. Airam Tripathi Basophils/100 WBC (Bld) 0.2 % Normal 0.2-2.0 [facility] Comment on above: Performed By: #### C BC ####[facility] Vbvyntpyzj[address] [place], [place] [address]Dr. Airam Tripathi EO # 0.1 103/ul Normal 0.0-0.7 [facility] Comment on above: Performed By: #### C BC ####[facility] Xzzyvenees[address] [place], [place] [address]Dr. Airam Tripathi Eosinophils/100 WBC (Bld) 2.1 % Normal 0.9-7.0 [facility] Comment on above: Performed By: #### C BC ####[facility] Ephozzvgjo[address] [place], [place] [address]Dr. Airam Tripathi Erythrocyte distribution width (RBC) [Ratio] 12.9 % Normal 11.0-15.0 [facility] Comment on above: Performed By: #### C BC ####[facility] Ttgpdecigf8[address] [place] [address]Dr. Airam Tripathi Hematocrit (Bld) [Volume fraction] 24.9 % Critically low 36.0-48.0 [facility] Comment on above: Performed By: #### C BC ####[facility] Qlnicqeffz2718 [place] [address]Dr. Airam Tripathi Hemoglobin (Bld) [Mass/Vol] 7.9 g/dL Critically low 12.0-16.0 [facility] Comment on above: Performed By: #### C BC ####[facility] Zyplxnxjji[address] [place], [place] [address]Dr. Airam Deuce IG # 0.05 10e3/ul Critically high 0.00-0.03 [facility] Comment on above: Performed By: #### C BC ####[facility] Oejqoyvugx[address] [place], [place] [address]Dr. Airam Tripathi IG % 0.8 % Critically high 0.0-0.5 [facility] Comment on above: Performed By: #### C BC ####[facility] Vfdhcwymyi[address] [place], [place] [address]Dr. Selenaneil Tripathi LYMPH # 0.9 103/ul Critically low 1.2-3.8 [facility] Comment on above: Performed By: #### C BC ####[facility] Dmaykdgoqn[address]67[address] [place], [place] [address]Dr. Airam Tripathi Lymphocytes/100 WBC (Bld) 13.7 % Critically low 20.5-60.0 [facility] Comment on above: Performed By: #### C BC ####[facility] Xcvuckbxvl415[address] [place], [place] [address]Dr. Selenaneil Tripathi MANUAL DIFF REQ NO Normal [facility] Comment on above: Performed By: #### C BC ####[facility] Igkrbewvuz[address] [place] [address]Dr. Airam Tripathi MCH (RBC) [Entitic mass] 30.2 pg Normal 26.7-34.0 [facility] Comment on above: Performed By: #### C BC ####[facility] Cdhnwxrbky7[address] [place] [id number]. Airam Tripathi MCHC (RBC) [Mass/Vol] 31.7 g/dL Normal 29.9-35.2 [facility] Comment on above: Performed By: #### C BC ####[facility] Xinzsifchc[address] [place] [id number]. Airam Tripathi MCV (RBC) [Entitic vol] 95.0 fL Normal 81.0-99.0 [facility] Comment on above: Performed By: #### C BC ####[facility] Tmtcpyphvt[address] [place], [place] [address]Dr. Airam Tripathi MONO # 0.4 103/ul Normal 0.3-0.8 [facility] Comment on above: Performed By: #### C BC ####[facility] Faeixtedmt[address] [place], [place] [address]Dr. Airam Tripathi Monocytes/100 WBC (Bld) 6.7 % Normal 1.7-12.0 [facility] Comment on above: Performed By: #### C BC ####[facility] Wjmwnxafrf[address] [place], [place] [address]Dr. Airam Tripathi NEUT # 5.0 103/ul Normal 1.4-6.5 [facility] Comment on above: Performed By: #### C BC ####[facility] Jlmvrbcazh[address] [place], [place] [address]Dr. Airam Tripathi Neutrophils/100 WBC (Bld) 76.5 % Critically high 43.0-75.0 [facility] Comment on above: Performed By: #### C BC ####[facility] Ojjebajefa[address] [place], [place] [address]Dr. Airam Tripathi Platelet mean volume (Bld) [Entitic vol] 8.4 fL Critically low 9.5-13.5 [facility] Comment on above: Performed By: #### C BC ####[facility] Zbhprgpnyf[address] [place], [place] [address]Dr. Airam Tripathi PLT 202 103/ul Normal 150-450 [facility] Comment on above: Performed By: #### C BC ####[facility] Rtkdjkhsmn4[address] [place] [address]Dr. Airam Tripathi RBC 2.62 106/ul Critically low 4.20-5.40 [facility] Comment on above: Performed By: #### C BC ####[facility] Hkucxigsjc[address]64 [place] [address]Dr. Airam Tripathi WBC 6.6 103/ul Normal 4.0-11.0 [facility] Comment on above: Performed By: #### C BC ####[facility] Cuhuxfkacw7[address] [place] [address]Dr. Airam Triapthi OSMOLALITYon 06-15-2022 Osmolality [Osmolality] 269 mosm/kg Critically low 275-295 [facility] Comment on above: Performed By: #### O SMO ####[facility] Foxzjobnvr[address] [place], [place] [address]Dr. Airam Tripathi PROF 14(COMP METB)on 022 Albumin [Mass/Vol] 2.5 g/dL Critically low 3.4-5.0 [facility] Comment on above: Performed By: #### C MP, BNP ####[facility] Qqmtdlclqq[address] [place], [place] [address]Dr. Airam Tripathi Albumin/Globulin [Mass ratio] 0.9 {ratio} Normal [facility] Comment on above: Performed By: #### C MP, BNP ####[facility] Jdexrcqxvk[address] [place] [address]Dr. Airam Tripathi ALP [Catalytic activity/Vol] 128 U/L Critically high 46-116 [facility] Comment on above: Performed By: #### C MP, BNP ####[facility] Kgllcakfsf27[address] [place] [address]Dr. Airam Tripathi ALT [Catalytic activity/Vol] 14 U/L Normal 14-59 [facility] Comment on above: Performed By: #### C MP, BNP ####[facility] Ezuthieqdu[address] [place], [place] [address]Dr. Airam Tripathi Anion gap [Moles/Vol] 10.4 mmol/L Normal [facility] Comment on above: Performed By: #### C MP, BNP ####[facility] Vffxghlrbg7760 [place] [address]Dr. Airam Tripathi AST [Catalytic activity/Vol] 23 U/L Normal 15-37 [facility] Comment on above: Performed By: #### C MP, BNP ####[facility] Lfbyjhanbb[address] [place], [place] [address]Dr. Airam Tripathi Bilirubin [Mass/Vol] 0.2 mg/dL Normal 0.2-1.0 [facility] Comment on above: Performed By: #### C MP, BNP ####[facility] Tsgqprwdrh[address] [place], [place] [address]Dr. Airam Tripathi Calcium [Mass/Vol] 7.4 mg/dL Critically low 8.5-10.1 [facility] Comment on above: Performed By: #### C MP, BNP ####[facility] Bdpyzswolh[address] [place], [place] [address]Dr. Airam Tripathi Chloride [Moles/Vol] 99 mmol/L Normal 98-107 [facility] Comment on above: Performed By: #### C MP, BNP ####[facility] Qeftvyzois[address] [place], [place] [address]Dr. Airam Tripathi CO2 [Moles/Vol] 24.1 mmol/L Normal 21.0-32.0 [facility] Comment on above: Performed By: #### C MP, BNP ####[facility] Knvsextica[address] [place], [place] [address]Dr. Airam Tripathi Creatinine [Mass/Vol] 1.45 mg/dL Critically high 0.55-1.02 [facility] Comment on above: Performed By: #### C MP, BNP ####[facility] Goudzjysad[address] [place], [place] [address]Dr. Airam Tripathi EGFR-AF MALAGASY 45 mL/min/1.73m2 Critically low >=60 [facility] Comment on above: Performed By: #### C MP, BNP ####[facility] Agdrikrebu[address] [place], [place] [address]Dr. Airam Tripathi EGFR-NON AF MALAGASY 37 mL/min/1.73m2 Critically low >=60 [facility] Comment on above: Performed By: #### C MP, BNP ####[facility] Oypjzwaobb[address] [place], [place] [address]Dr. Airam Tripathi Globulin (S) [Mass/Vol] 2.8 g/dL Normal [facility] Comment on above: Performed By: #### C MP, BNP ####[facility] Ruusqxbepo[address] [place], [place] [address]Dr. Airam Tripathi Glucose [Mass/Vol] 82 mg/dL Normal 74-106 [facility] Comment on above: Performed By: #### C MP, BNP ####[facility] Uhdfqcgkwd204[address] [place], [place] [address]Dr. Airam Tripathi Potassium [Moles/Vol] 4.5 mmol/L Normal 3.5-5.1 [facility] Comment on above: Performed By: #### C MP, BNP ####[facility] Duxrupcsvu[address] [place], [place] [address]Dr. Airam Tripathi Protein [Mass/Vol] 5.3 g/dL Critically low 6.4-8.2 [facility] Comment on above: Performed By: #### C MP, BNP ####[facility] Bybywecreh[address] [place], [place] [address]Dr. Airam Tripathi Sodium [Moles/Vol] 129 mmol/L Critically low 136-145 [facility] Comment on above: Performed By: #### C MP, BNP ####[facility] Kvtdqfhtie[address] [place], [place] [address]Dr. Airam Tripathi Urea nitrogen [Mass/Vol] 35.0 mg/dL Critically high 7.0-18.0 [facility] Comment on above: Performed By: #### C MP, BNP ####[facility] Wztsgvxssg[address] [place], [place] [address]Dr. Airam Tripathi Urea nitrogen/Creatinine [Mass ratio] 24.1 mg/mg Normal [facility] Comment on above: Performed By: #### C MP, BNP ####[facility] Sukbuiaowz[address] [place], [place] [address]Dr. Airam Tripathi T3, TOTAL (TRIIODOTHYRONINE) on 06-15-2022 T3, TOTAL 113 ng/dL Normal 71-180 [facility] Comment on above: Performed By: #### T 3TOTAL ####[facility] Y[address]jcq[address] [place] [address]Dr. Airam Tripathi BNPon 06-14-2022 Natriuretic peptide B (Bld) [Mass/Vol] 1024.0 pg/mL Critically high <=900.0 [facility] Comment on above: Performed By: #### B ADMINISTRATIVE OFFICER, CMP ####[facility] Qqdgsddrdk64[address] [place] [address]Dr. Airam Deuce CARDIAC CONSUELO 3-6on 2 CK [Catalytic activity/Vol] 116 U/L Normal 26-192 [facility] Comment on above: Performed By: #### C MREP ####[facility] Vexwizzbum[address] [place] [address]Dr. Airam Deuce CK.MB [Mass/Vol] ng/mL Normal <=3.60 [facility] Comment on above: Performed By: #### C MREP ####[facility] Heqqachjei[address] [place] [address]Dr. Airam Deuce HSTROP 6.0 pg/mL Normal 4.0-51.3 [facility] Comment on above: Result Comment: CUT- OFF POINTS HAVE BEEN ESTABLISHED BASED ON THE FOURTH UNIVERSAL DEFINITIONS OF MYOCARDIALINFARCTION. THE UPPER REFERENCE LIMIT (URL) OF TROPONIN, DEFINED THE 99TH PERCENTILE OFcTnI DISTRIBUTION IN A REFERENCE POPULATION, HAS BEEN CONFIRMED THE DECISION THRESHOLDFOR MA DIAGNOSIS. Performed By: #### C MREP ####[facility] Jxtwzgqijy[address] [place] [address]Dr. Airam Deuce CBC AUTO DIFFon 06-14-2022 BASO # 0.0 103/ul Normal 0.0-0.1 [facility] Comment on above: Performed By: #### C BC ####[facility] Emttqbyspy8[address] [place] [address]Dr. Airam Tripathi Basophils/100 WBC (Bld) 0.3 % Normal 0.2-2.0 [facility] Comment on above: Performed By: #### C BC ####[facility] [address]oeve[address] [place], [place] [address]DrKianna Tripathi EO # 0.2 103/ul Normal 0.0-0.7 [facility] Comment on above: Performed By: #### C BC ####[facility] Poalufiwqu[address] [place], [place] [address]Dr. Airam Tripathi Eosinophils/100 WBC (Bld) 2.0 % Normal 0.9-7.0 [facility] Comment on above: Performed By: #### C BC ####[facility] Mnmdtweoea239[address] [place], [place] [address]Dr. Airam Tripathi Erythrocyte distribution width (RBC) [Ratio] 12.8 % Normal 11.0-15.0 [facility] Comment on above: Performed By: #### C BC ####[facility] Ltvvpjwbnt[address] [place], [place] [address]Dr. Airam Tripathi Hematocrit (Bld) [Volume fraction] 27.4 % Critically low 36.0-48.0 [facility] Comment on above: Performed By: #### C BC ####[facility] Zverzxlatf[address] [place], [place] [address]DrKianna Tripathi Hemoglobin (Bld) [Mass/Vol] 8.7 g/dL Critically low 12.0-16.0 [facility] Comment on above: Performed By: #### C BC ####[facility] [address]nzgd[address] [place], [place] [address]DrKianna Tripathi IG # 0.11 10e3/ul Critically high 0.00-0.03 [facility] Comment on above: Performed By: #### C BC ####[facility] Ksiuqxdelx[address] [place], [place] [address]DrKianna Tripathi IG % 1.1 % Critically high 0.0-0.5 [facility] Comment on above: Performed By: #### C BC ####[facility] W[address]awprvrf[address] [place], [place] [address]DrKianna Tripathi LYMPH # 0.9 103/ul Critically low 1.2-3.8 [facility] Comment on above: Performed By: #### C BC ####[facility] Jzxvarktbw70[address] [place] [address]DrKianna Tripathi Lymphocytes/100 WBC (Bld) 9.7 % Critically low 20.5-60.0 [facility] Comment on above: Performed By: #### C BC ####[facility] [address]lelhdf[address] [place] [address]DrKianna Tripathi MANUAL DIFF REQ NO Normal [facility] Comment on above: Performed By: #### C BC ####[facility] Fqauoldfgm1472 [place] [address]DrKianna Tripathi MCH (RBC) [Entitic mass] 30.0 pg Normal 26.7-34.0 [facility] Comment on above: Performed By: #### C BC ####[facility] [address]csrxzsl[address] [place], [place] [address]DrKianna Tripathi MCHC (RBC) [Mass/Vol] 31.8 g/dL Normal 29.9-35.2 [facility] Comment on above: Performed By: #### C BC ####[facility] J[address]hs[address]dse[address] [place], [place] [address]DrKianna Tripathi MCV (RBC) [Entitic vol] 94.5 fL Normal 81.0-99.0 [facility] Comment on above: Performed By: #### C BC ####[facility] Xjcquukbbz[address] [place], [place] [address]DrKianna Tripathi MONO # 0.6 103/ul Normal 0.3-0.8 [facility] Comment on above: Performed By: #### C BC ####[facility] Dawupnatyx[address] [place], [place] [address]DrKianna Tripathi Monocytes/100 WBC (Bld) 5.7 % Normal 1.7-12.0 [facility] Comment on above: Performed By: #### C BC ####[facility] [address]ebab[address]erv[address] [place], [place] [address]DrKianna Tripathi NEUT # 7.8 103/ul Critically high 1.4-6.5 [facility] Comment on above: Performed By: #### C BC ####[facility] [address]urt[address] [place] [address]DrKianna Tripathi Neutrophils/100 WBC (Bld) 81.2 % Critically high 43.0-75.0 [facility] Comment on above: Performed By: #### C BC ####[facility] Rhwvefrvsb[address] [place] [address]DrKianna Tripathi Platelet mean volume (Bld) [Entitic vol] 8.6 fL Critically low 9.5-13.5 [facility] Comment on above: Performed By: #### C BC ####[facility] Xuunoirpgl[address] [place], [place] [address]DrKianna Tripathi PLT 283 103/ul Normal 150-450 [facility] Comment on above: Performed By: #### C BC ####[facility] Kgjoviihzw[address] [place], [place] [address]DrKianna Tripathi RBC 2.90 106/ul Critically low 4.20-5.40 [facility] Comment on above: Performed By: #### C BC ####[facility] Bub[address]oiq[address] [place], [place] [address]DrKianna Tripathi WBC 9.6 103/ul Normal 4.0-11.0 [facility] Comment on above: Performed By: #### C BC ####[facility] C[address]uc[address] [place], [place] [address]DrKianna Tripathi OSMOLALITYon 06-14-2022 Osmolality [Osmolality] 273 mosm/kg Critically low 275-295 [facility] Comment on above: Performed By: #### O SMO ####[facility] [address] [place], [place] [address]DrKianna Tripathi PROF 14(COMP METB)on 022 Albumin [Mass/Vol] 3.2 g/dL Critically low 3.4-5.0 [facility] Comment on above: Performed By: #### B ADMINISTRATIVE OFFICER, CMP ####[facility] Fmhjnolpzu[address] [place], [place] [address]Dr. Selenaneil Deuce Albumin/Globulin [Mass ratio] 1.0 {ratio} Normal [facility] Comment on above: Performed By: #### B ADMINISTRATIVE OFFICER, CMP ####[facility] S[address]lyweuzp[address] [place] [address]Dr. Airam Deuce ALP [Catalytic activity/Vol] 154 U/L Critically high 46-116 [facility] Comment on above: Performed By: #### B ADMINISTRATIVE OFFICER, CMP ####[facility] [address]qyaylbn[address] [place] [address]Dr. Selenaneil Deuce ALT [Catalytic activity/Vol] 17 U/L Normal 14-59 [facility] Comment on above: Performed By: #### B ADMINISTRATIVE OFFICER, CMP ####[facility] Thcfxjxkar[address] [place] [address]Dr. Airam Tripathi Anion gap [Moles/Vol] 12.0 mmol/L Normal [facility] Comment on above: Performed By: #### B ADMINISTRATIVE OFFICER, CMP ####[facility] Jcltwnzcbj[address] [place] [address]Dr. Airam Tripathi AST [Catalytic activity/Vol] 25 U/L Normal 15-37 [facility] Comment on above: Performed By: #### B ADMINISTRATIVE OFFICER, CMP ####[facility] Eehhhjcncc[address] [place] [address]Dr. Airam Tripathi Bilirubin [Mass/Vol] 0.3 mg/dL Normal 0.2-1.0 [facility] Comment on above: Performed By: #### B ADMINISTRATIVE OFFICER, CMP ####[facility] [address]lsnydqfz[address] [place] [address]Dr. Airam Tripathi Calcium [Mass/Vol] 7.6 mg/dL Critically low 8.5-10.1 [facility] Comment on above: Performed By: #### B ADMINISTRATIVE OFFICER, CMP ####[facility] Jizivoepeg[address] [place] [address]Dr. Airam Tripathi Chloride [Moles/Vol] 92 mmol/L Critically low 98-107 [facility] Comment on above: Performed By: #### B ADMINISTRATIVE OFFICER, CMP ####[facility] [address]zszuj[address] [place], [place] [address]Dr. Airam Tripathi CO2 [Moles/Vol] 25.2 mmol/L Normal 21.0-32.0 [facility] Comment on above: Performed By: #### B ADMINISTRATIVE OFFICER, CMP ####[facility] [address]luhnzcuun[address] [place] [address]Dr. Airam Tripathi Creatinine [Mass/Vol] 1.83 mg/dL Critically high 0.55-1.02 [facility] Comment on above: Performed By: #### B ADMINISTRATIVE OFFICER, CMP ####[facility] Yffryisccr[address] [place] [address]Dr. Airam Tripathi EGFR-AF MALAGASY 34 mL/min/1.73m2 Critically low >=60 [facility] Comment on above: Performed By: #### B ADMINISTRATIVE OFFICER, CMP ####[facility] Ydimtisssn[address] [place] [address]Dr. Airam Deuce EGFR-NON AF MALAGASY 28 mL/min/1.73m2 Critically low >=60 [facility] Comment on above: Performed By: #### B ADMINISTRATIVE OFFICER, CMP ####[facility] Eapewmxnmn[address] [place] [address]Dr. Airam Deuce Globulin (S) [Mass/Vol] 3.1 g/dL Normal [facility] Comment on above: Performed By: #### B ADMINISTRATIVE OFFICER, CMP ####[facility] Nheircmdbx[address] [place] [address]Dr. Airam Tripathi Glucose [Mass/Vol] 77 mg/dL Normal 74-106 [facility] Comment on above: Performed By: #### B ADMINISTRATIVE OFFICER, CMP ####[facility] Zpxjbuvqlk8037 [place] [address]Dr. Airam Tripathi Potassium [Moles/Vol] 4.2 mmol/L Normal 3.5-5.1 [facility] Comment on above: Performed By: #### B ADMINISTRATIVE OFFICER, CMP ####[facility] Dodhujmbiv9636 [place] [address]Dr. Airam Tripathi Protein [Mass/Vol] 6.3 g/dL Critically low 6.4-8.2 [facility] Comment on above: Performed By: #### B ADMINISTRATIVE OFFICER, CMP ####[facility] L[address]hkuab[address] [place], [place] [address]Dr. Airam Tripathi Sodium [Moles/Vol] 125 mmol/L Critically low 136-145 [facility] Comment on above: Performed By: #### B ADMINISTRATIVE OFFICER, CMP ####[facility] Zuqsojvdna[address] [place], [place] [address]Dr. Airam Tripathi Urea nitrogen [Mass/Vol] 35.0 mg/dL Critically high 7.0-18.0 [facility] Comment on above: Performed By: #### B ADMINISTRATIVE OFFICER, CMP ####[facility] Bjxjxihewq[address] [place], [place] [address]Dr. Airam Tripathi Urea nitrogen/Creatinine [Mass ratio] 19.1 mg/mg Normal [facility] Comment on above: Performed By: #### B ADMINISTRATIVE OFFICER, CMP ####[facility] Htqutbxooj[address] [place], [place] [address]Dr. Airam Tripathi UA RANDOM W/MICROSCOPICon BACTERIA TRACE Abnormal NONE SEEN [facility] Comment on above: Performed By: #### U AMIC ####[facility] Vgrdmvxeve[address] [place], [place] [address]Dr. Airam Tripathi Bilirubin Ql (U) Negative Normal NEGATIVE [facility] Comment on above: Performed By: #### U AMIC ####[facility] Kmpygssvzq[address] [place], [place] [address]Dr. Airam Tripathi CAST NONE SEEN Normal NONE SEEN [facility] Comment on above: Performed By: #### U AMIC ####[facility] Eiigyfmqay[address] [place], [place] [address]Dr. Airam Tripathi Clarity (U) CLEAR Normal CLEAR [facility] Comment on above: Performed By: #### U AMIC ####[facility] Wfsykrjxce[address] [place], [place] [address]Dr. Airam Tripathi Color (U) LT. YELLOW Normal YELLOW [facility] Comment on above: Performed By: #### U AMIC ####[facility] Lwtwjddbrs[address] [place], [place] [address]Dr. Airam Tripathi Crystals LM Nom (Urine sed) NONE SEEN Normal NONE SEEN [facility] Comment on above: Performed By: #### U AMIC ####[facility] [address]tvbzcrm[address] [place] [address]Dr. Airam Tripathi Epithelial cells LM Ql (Urine sed) FEW Abnormal NONE SEEN /RARE [facility] Comment on above: Performed By: #### U AMIC ####[facility] Dhxoqginvc3448 [place] [address]Dr. Airam Tripathi Glucose Ql (U) Negative Normal NEGATIVE [facility] Comment on above: Performed By: #### U AMIC ####[facility] Owadbtqhkb[address] [place], [place] [address]Dr. Airam Tripathi Hemoglobin Ql (U) Negative Normal NEGATIVE [facility] Comment on above: Performed By: #### U AMIC ####[facility] Dhhmmctrep[address] [place], [place] [address]Dr. Airam Tripathi Ketones Ql (U) Negative Normal NEGATIVE [facility] Comment on above: Performed By: #### U AMIC ####[facility] Lbrzqlrdjh[address] [place], [place] [address]Dr. Selenaneil Tripathi LEUKOCYTES MODERATE Abnormal NEGATIVE [facility] Comment on above: Performed By: #### U AMIC ####[facility] Yezggjqsmr[address] [place], [place] [address]Dr. Yilan Tripathi MUCOUS NONE SEEN Normal NONE SEEN [facility] Comment on above: Performed By: #### U AMIC ####[facility] Rsacrzqkhb[address] [place], [place] [address]Dr. Selenaneil Tripathi Nitrite Ql (U) Negative Normal NEGATIVE [facility] Comment on above: Performed By: #### U AMIC ####[facility] Ncwvqztalc[address] [place], [place] [address]Dr. Airam Tripathi pH (U) 5.5 [pH] Normal 5-9 [facility] Comment on above: Performed By: #### U AMIC ####[facility] Lyapsfkiiv[address] [place], [place] [address]Dr. Airam Tripathi RBC 0-2 Normal 0-2 [facility] Comment on above: Performed By: #### U AMIC ####[facility] [address]zrzceb[address] [place] [address]Dr. Airam Tripathi SPEC GRAVITY 1.020 Normal 1.005-<=1. 025 [facility] Comment on above: Performed By: #### U AMIC ####[facility] Voclulxchp[address] [place] [address]Dr. Airam Tripathi UA PROTEIN Negative Normal NEGATIVE/ TRACE [facility] Comment on above: Performed By: #### U AMIC ####[facility] K[address]obfe[address] [place] [address]Dr. Airam Tripathi Urobilinogen Qn (U) 0.2 {Ligia'U}/dL Normal 0.2 - 1. 0 [facility] Comment on above: Performed By: #### U AMIC ####[facility] [address]toadxxkvz[address] [place], [place] [address]Dr. Airam Tripathi WBC 5-10 Abnormal NONE SEEN [facility] Comment on above: Performed By: #### U AMIC ####[facility] Ykgaanjsnt[address] [place], [place] [address]Dr. Airam Tripathi BNPon 06-13-2022 Natriuretic peptide B (Bld) [Mass/Vol] 1496.0 pg/mL Critically high <=900.0 [facility] Comment on above: Performed By: #### T 4, BNP, MG, TSH, CMADM, CRP, CMP ####[facility] [address]cbtdxhn[address] [place] [address]Dr. Airam Tripathi CARDIAC CONSUELO 3-6on 2 CK [Catalytic activity/Vol] 125 U/L Normal 26-192 [facility] Comment on above: Performed By: #### C MREP ####[facility] [address]ffzmbxlue[address] [place], [place] [address]Dr. Airam Tripathi CK.MB [Mass/Vol] ng/mL Normal <=3.60 [facility] Comment on above: Performed By: #### C MREP ####[facility] Jrkhsutubv[address] [place], [place] [address]Dr. Airam Tripathi HSTROP 5.8 pg/mL Normal 4.0-51.3 [facility] Comment on above: Result Comment: CUT- OFF POINTS HAVE BEEN ESTABLISHED BASED ON THE FOURTH UNIVERSAL DEFINITIONS OF MYOCARDIALINFARCTION. THE UPPER REFERENCE LIMIT (URL) OF TROPONIN, DEFINED THE 99TH PERCENTILE OFcTnI DISTRIBUTION IN A REFERENCE POPULATION, HAS BEEN CONFIRMED THE DECISION THRESHOLDFOR [place] DIAGNOSIS. Performed By: #### C MREP ####[facility] [address]ekkgwc[address] [place] [address]Dr. Airam Tripathi CARDIAC CONSUELO ADMITon 022 CK [Catalytic activity/Vol] 121 U/L Normal 26-192 [facility] Comment on above: Performed By: #### T 4, BNP, MG, TSH, CMADM, CRP, CMP ####[facility] [address]fzpkwf[address] [place] [address]Dr. Airam Tripathi CK.MB [Mass/Vol] 3.06 ng/mL Normal <=3.60 [facility] Comment on above: Performed By: #### T 4, BNP, MG, TSH, CMADM, CRP, CMP ####[facility] Cfeelbpgqz[address] [place] [address]Dr. Airam Deuce HSTROP 6.9 pg/mL Normal 4.0-51.3 [facility] Comment on above: Result Comment: CUT- OFF POINTS HAVE BEEN ESTABLISHED BASED ON THE FOURTH UNIVERSAL DEFINITIONS OF MYOCARDIALINFARCTION. THE UPPER REFERENCE LIMIT (URL) OF TROPONIN, DEFINED THE 99TH PERCENTILE OFcTnI DISTRIBUTION IN A REFERENCE POPULATION, HAS BEEN CONFIRMED THE DECISION THRESHOLDFOR [place] DIAGNOSIS. Performed By: #### T 4, BNP, MG, TSH, CMADM, CRP, CMP ####[facility] [address]csbihwgw[address] [place] [address]Dr. Selenaneil Tripathi KATHY 124 ng/mL Critically high 9-82 [facility] Comment on above: Performed By: #### T 4, BNP, MG, TSH, CMADM, CRP, CMP ####[facility] Lloisckzvn[address] [place] [address]Dr. Airam Tripathi CBC AUTO DIFFon 06-13-2022 BASO # 0.0 103/ul Normal 0.0-0.1 [facility] Comment on above: Performed By: #### C BC ####[facility] [address]ytltp[address] [place] [address]Dr. Airam Tripathi Basophils/100 WBC (Bld) 0.2 % Normal 0.2-2.0 [facility] Comment on above: Performed By: #### C BC ####[facility] [address]seiz[address]frv[address] [place], [place] [address]Dr. Airam Deuce EO # 0.2 103/ul Normal 0.0-0.7 [facility] Comment on above: Performed By: #### C BC ####[facility] Yrpdrnulql[address] [place], [place] [address]Dr. Airam Deuce Eosinophils/100 WBC (Bld) 1.5 % Normal 0.9-7.0 [facility] Comment on above: Performed By: #### C BC ####[facility] Iyndiejnmt[address] [place], [place] [address]Dr. Airam Tripathi Erythrocyte distribution width (RBC) [Ratio] 12.7 % Normal 11.0-15.0 [facility] Comment on above: Performed By: #### C BC ####[facility] Jsxieuaito[address] [place], [place] [address]Dr. Airam Tripathi Hematocrit (Bld) [Volume fraction] 30.0 % Critically low 36.0-48.0 [facility] Comment on above: Performed By: #### C BC ####[facility] [address]nxcvupulk[address] [place], [place] [address]Dr. Airam Tripathi Hemoglobin (Bld) [Mass/Vol] 9.6 g/dL Critically low 12.0-16.0 [facility] Comment on above: Performed By: #### C BC ####[facility] [address]jbeuyyj[address] [place], [place] [address]Dr. Airam Deuce IG # 0.11 10e3/ul Critically high 0.00-0.03 [facility] Comment on above: Performed By: #### C BC ####[facility] U[address]okxgbkc[address] [place], [place] [address]Dr. Yineil Tripathi IG % 1.1 % Critically high 0.0-0.5 [facility] Comment on above: Performed By: #### C BC ####[facility] [address]wqpedidv4[address] [place] [address]Dr. Airam Deuce LYMPH # 1.5 103/ul Normal 1.2-3.8 [facility] Comment on above: Performed By: #### C BC ####[facility] Coxqseagsv[address] [place] [address]Dr. Selenaneil Tripathi Lymphocytes/100 WBC (Bld) 14.9 % Critically low 20.5-60.0 [facility] Comment on above: Performed By: #### C BC ####[facility] [address]zyxozpt[address] [place], [place] [address]Dr. Selenaneil Tripathi MANUAL DIFF REQ NO Normal [facility] Comment on above: Performed By: #### C BC ####[facility] Mwutpuvnak[address] [place], [place] [address]Dr. Airam Deuce MCH (RBC) [Entitic mass] 30.0 pg Normal 26.7-34.0 [facility] Comment on above: Performed By: #### C BC ####[facility] [address]zmugazxis[address] [place], [place] [address]Dr. Airam Tripathi MCHC (RBC) [Mass/Vol] 32.0 g/dL Normal 29.9-35.2 [facility] Comment on above: Performed By: #### C BC ####[facility] [address]nsdsuxi[address] [place], [place] [address]Dr. Airam Tripathi MCV (RBC) [Entitic vol] 93.8 fL Normal 81.0-99.0 [facility] Comment on above: Performed By: #### C BC ####[facility] [address]efztevtdf[address] [place], [place] [address]Dr. Airam Tripathi MONO # 0.8 103/ul Normal 0.3-0.8 [facility] Comment on above: Performed By: #### C BC ####[facility] X[address]zy[address]htw[address] [place], [place] [address]Dr. Airam Tripathi Monocytes/100 WBC (Bld) 7.3 % Normal 1.7-12.0 [facility] Comment on above: Performed By: #### C BC ####[facility] Xktmmfnwtp33[address] [place] [address]Dr. Airam Tripathi NEUT # 7.8 103/ul Critically high 1.4-6.5 [facility] Comment on above: Performed By: #### C BC ####[facility] [address]aut[address]dxo[address] [place] [address]Dr. Airam Tripathi Neutrophils/100 WBC (Bld) 75.0 % Normal 43.0-75.0 [facility] Comment on above: Performed By: #### C BC ####[facility] Ynmseywnck[address] [place] [address]Dr. Airam Tripathi Platelet mean volume (Bld) [Entitic vol] 9.1 fL Critically low 9.5-13.5 [facility] Comment on above: Performed By: #### C BC ####[facility] [address]oc[address] [place], [place] [address]Dr. Airam Tripathi PLT 341 103/ul Normal 150-450 [facility] Comment on above: Performed By: #### C BC ####[facility] [address]omulwi[address] [place], [place] [address]Dr. Airam Tripathi RBC 3.20 106/ul Critically low 4.20-5.40 [facility] Comment on above: Performed By: #### C BC ####[facility] [address]odxlyt[address] [place], [place] [address]Dr. Airam Tripathi WBC 10.4 103/ul Normal 4.0-11.0 [facility] Comment on above: Performed By: #### C BC ####[facility] Ix[address]fxmwb[address] [place], [place] [address]Dr. Airam Tripathi CRPon 06-13-2022 CRP [Mass/Vol] mg/L Normal <=1.0 [facility] Comment on above: Performed By: #### T 4, BNP, MG, TSH, CMADM, CRP, CMP ####[facility] [address]vjxfu[address] [place] [address]. Air[address] Tri[address]i CT HEAD WO CONon 06-13-2022 CT HEAD WO CON Normal [facility] Covid-19 PCR (CVDTB)on 05-26 SARS-CoV-2 (COVID-19) RNA MIKE+probe Ql (Unsp spec) Not detected Normal NOT DETECTED [facility] Comment on above: Result Comment: When diagnostic [...] for this test is supported by the [place] of [employer] and Human Service's declaration that [...] be used). Performed By: #### C VDTBH ####[facility] [address]ym[address]hiq[address] [place] [address]Dr. Airam Tripathi LACTATE/LACTIC ACIDon 2021 Lactate [Moles/Vol] 0.5 mmol/L Normal 0.4-1.9 [facility] Comment on above: Performed By: #### L ACT ####[facility] Msyczfzpsk[address] [place] [address]Dr. Airam Tripathi MAGNESIUMon 06-13-2022 Magnesium [Mass/Vol] 1.9 mg/dL Normal 1.8-2.4 [facility] Comment on above: Performed By: #### T 4, BNP, MG, TSH, CMADM, CRP, CMP ####[facility] [address] [place] [id number] Tripathi PROF 14(COMP METB)on 022 Albumin [Mass/Vol] 3.8 g/dL Normal 3.4-5.0 [facility] Comment on above: Performed By: #### T 4, BNP, MG, TSH, CMADM, CRP, CMP ####[facility] [address]uvvingmfe[address] [place] [address]Dr. Selenaneil Tripathi Albumin/Globulin [Mass ratio] 1.1 {ratio} Normal [facility] Comment on above: Performed By: #### T 4, BNP, MG, TSH, CMADM, CRP, CMP ####[facility] [address]jilwdluf[address] [place] [address]Dr. Selenaneil Tripathi ALP [Catalytic activity/Vol] 161 U/L Critically high 46-116 [facility] Comment on above: Performed By: #### T 4, BNP, MG, TSH, CMADM, CRP, CMP ####[facility] [address]wnijui[address] [place], [place] [address]Dr. Airam Tripathi ALT [Catalytic activity/Vol] 21 U/L Normal 14-59 [facility] Comment on above: Performed By: #### T 4, BNP, MG, TSH, CMADM, CRP, CMP ####[facility] [address]ipaamvvxi[address] [place] [address]Dr. Airam Tripathi Anion gap [Moles/Vol] 12.6 mmol/L Normal [facility] Comment on above: Performed By: #### T 4, BNP, MG, TSH, CMADM, CRP, CMP ####[facility] Xsfpcyflri[address] [place] [address]Dr. Airam Tripathi AST [Catalytic activity/Vol] 30 U/L Normal 15-37 [facility] Comment on above: Performed By: #### T 4, BNP, MG, TSH, CMADM, CRP, CMP ####[facility] Ltofpdempb[address] [place] [address]Dr. Airam Tripathi Bilirubin [Mass/Vol] 0.3 mg/dL Normal 0.2-1.0 [facility] Comment on above: Performed By: #### T 4, BNP, MG, TSH, CMADM, CRP, CMP ####[facility] [address]pt[address]yl[address] [place], [place] [address]Dr. Airam Tripathi Calcium [Mass/Vol] 8.8 mg/dL Normal 8.5-10.1 [facility] Comment on above: Performed By: #### T 4, BNP, MG, TSH, CMADM, CRP, CMP ####[facility] [address]qgzjagla[address] [place] [address]Dr. Airam Tripathi Chloride [Moles/Vol] 91 mmol/L Critically low 98-107 [facility] Comment on above: Performed By: #### T 4, BNP, MG, TSH, CMADM, CRP, CMP ####[facility] Zndyojqdtx[address] [place] [address]Dr. Airam Tripathi CO2 [Moles/Vol] 26.9 mmol/L Normal 21.0-32.0 [facility] Comment on above: Performed By: #### T 4, BNP, MG, TSH, CMADM, CRP, CMP ####[facility] [address]vs[address]wd[address] [place], [place] [address]Dr. Airam Tripathi Creatinine [Mass/Vol] 1.83 mg/dL Critically high 0.55-1.02 [facility] Comment on above: Performed By: #### T 4, BNP, MG, TSH, CMADM, CRP, CMP ####[facility] W[address]ffqvqyej[address] [place] [address]Dr. Airam Tripathi EGFR-AF MALAGASY 34 mL/min/1.73m2 Critically low >=60 [facility] Comment on above: Performed By: #### T 4, BNP, MG, TSH, CMADM, CRP, CMP ####[facility] [address]tirzl[address] [place], [place] [address]Dr. Airam Tripathi EGFR-NON AF MALAGASY 28 mL/min/1.73m2 Critically low >=60 [facility] Comment on above: Performed By: #### T 4, BNP, MG, TSH, CMADM, CRP, CMP ####[facility] [address]atzymrbh[address] [place], [place] [address]Dr. Airam Tripathi Globulin (S) [Mass/Vol] 3.5 g/dL Normal [facility] Comment on above: Performed By: #### T 4, BNP, MG, TSH, CMADM, CRP, CMP ####[facility] [address]scpbau[address] [place] [address]Dr. Airam Tripathi Glucose [Mass/Vol] 96 mg/dL Normal 74-106 [facility] Comment on above: Performed By: #### T 4, BNP, MG, TSH, CMADM, CRP, CMP ####[facility] [address]hchixawmv[address] [place] [address]Dr. Selenalan Tripathi Potassium [Moles/Vol] 4.5 mmol/L Normal 3.5-5.1 [facility] Comment on above: Performed By: #### T 4, BNP, MG, TSH, CMADM, CRP, CMP ####[facility] Tjxmahmgck[address] [place] [address]Dr. Airam Tripathi Protein [Mass/Vol] 7.3 g/dL Normal 6.4-8.2 [facility] Comment on above: Performed By: #### T 4, BNP, MG, TSH, CMADM, CRP, CMP ####[facility] [address]tt[address] [place], [place] [address]Dr. Selenalan Tripathi Sodium [Moles/Vol] 126 mmol/L Critically low 136-145 [facility] Comment on above: Performed By: #### T 4, BNP, MG, TSH, CMADM, CRP, CMP ####[facility] [address]zqqvqwjt[address] [place] [address]Dr. Selenalan Tripathi Urea nitrogen [Mass/Vol] 34.0 mg/dL Critically high 7.0-18.0 [facility] Comment on above: Performed By: #### T 4, BNP, MG, TSH, CMADM, CRP, CMP ####[facility] Fwuomepmjs[address] [place] [address]Dr. Selenalan Tripathi Urea nitrogen/Creatinine [Mass ratio] 18.6 mg/mg Normal [facility] Comment on above: Performed By: #### T 4, BNP, MG, TSH, CMADM, CRP, CMP ####[facility] [address] [place], [place] [address]Dr. Selenalan Tripathi Albumin [Mass/Vol] 3.4 g/dL Normal 3.4-5.0 The [facility] Comment on above: Performed By: #### C MP ####[facility] [address]mkewmyy[address] [place] [address]Dr. Airam Tripathi Albumin/Globulin [Mass ratio] 1.0 {ratio} Normal [facility] Comment on above: Performed By: #### C MP ####[facility] Zdbratdqqp[address] [place] [address]Dr. Airam Tripathi ALP [Catalytic activity/Vol] 151 U/L Critically high 46-116 [facility] Comment on above: Performed By: #### C MP ####[facility] Kmalyswnju[address] [place], [place] [address]Dr. Airam Tripathi ALT [Catalytic activity/Vol] 20 U/L Normal 14-59 [facility] Comment on above: Performed By: #### C MP ####[facility] Oxjprkpvti[address] [place], [place] [address]Dr. Airam Tripathi Anion gap [Moles/Vol] 11.7 mmol/L Normal [facility] Comment on above: Performed By: #### C MP ####[facility] Ofebuipwzr[address] [place], [place] [address]Dr. Airam Tripathi AST [Catalytic activity/Vol] 28 U/L Normal 15-37 [facility] Comment on above: Performed By: #### C MP ####[facility] Ycgxclklmi[address] [place], [place] [address]Dr. Airam Tripathi Bilirubin [Mass/Vol] 0.3 mg/dL Normal 0.2-1.0 [facility] Comment on above: Performed By: #### C MP ####[facility] Tsgyzmfoqe[address] [place], [place] [address]Dr. Airam Tripathi Calcium [Mass/Vol] 8.5 mg/dL Normal 8.5-10.1 [facility] Comment on above: Performed By: #### C MP ####[facility] Wvuhurzvjr[address] [place], [place] [address]Dr. Airam Tripathi Chloride [Moles/Vol] 91 mmol/L Critically low 98-107 [facility] Comment on above: Performed By: #### C MP ####[facility] Nmdfzzlrkj[address] [place] [id number]. Airam Tripathi CO2 [Moles/Vol] 28.3 mmol/L Normal 21.0-32.0 [facility] Comment on above: Performed By: #### C MP ####[facility] Ozkflhqedf4060 [place] [id number]. Airam Tripathi Creatinine [Mass/Vol] 1.68 mg/dL Critically high 0.55-1.02 [facility] Comment on above: Performed By: #### C MP ####[facility] Aisivwkkem46[address] [place] [id number]. Airam Tripathi EGFR-AF MALAGASY 38 mL/min/1.73m2 Critically low >=60 [facility] Comment on above: Performed By: #### C MP ####[facility] Vkbkllkkhp[address] [place], [place] [address]Dr. Airam Tripathi EGFR-NON AF MALAGASY 31 mL/min/1.73m2 Critically low >=60 [facility] Comment on above: Performed By: #### C MP ####[facility] Krtefyunbl7[address] [place] [address]Dr. Airam Tripathi Globulin (S) [Mass/Vol] 3.5 g/dL Normal [facility] Comment on above: Performed By: #### C MP ####[facility] Bkexizkjgw8135 [place] [address]Dr. Airam Tripathi Glucose [Mass/Vol] 74 mg/dL Normal 74-106 [facility] Comment on above: Performed By: #### C MP ####[facility] Ajyfmmhclp[address] [place], [place] [address]Dr. Airam Tripathi Potassium [Moles/Vol] 4.0 mmol/L Normal 3.5-5.1 [facility] Comment on above: Performed By: #### C MP ####[facility] Ilswueszso67[address] [place], [place] [address]Dr. Airam Tripathi Protein [Mass/Vol] 6.9 g/dL Normal 6.4-8.2 [facility] Comment on above: Performed By: #### C MP ####[facility] Oucvulmvwh[address] [place], [place] [address]Dr. Airam Tripathi Sodium [Moles/Vol] 127 mmol/L Critically low 136-145 [facility] Comment on above: Performed By: #### C MP ####[facility] Rdqdcofhyt18[address] [place], [place] [address]Dr. Airam Tripathi Urea nitrogen [Mass/Vol] 29.0 mg/dL Critically high 7.0-18.0 [facility] Comment on above: Performed By: #### C MP ####[facility] Vkjoixzhfv86[address] [place], [place] [address]Dr. Airam Tripathi Urea nitrogen/Creatinine [Mass ratio] 17.3 mg/mg Normal [facility] Comment on above: Performed By: #### C MP ####[facility] Fzbgyoftwk[address] [place], [place] [address]Dr. Airam Tripathi T4on 06-13-2022 T4 [Mass/Vol] 6.80 ug/dL Normal 4.80-13.90 [facility] Comment on above: Performed By: #### T 4, BNP, MG, TSH, CMADM, CRP, CMP ####[facility] Igjojuiuyd2916[address] [place], [place] [address]Dr. Airam Tripathi TSHon 06-13-2022 TSH 0.101 uIU/mL Critically low 0.358-3.74 0 [facility] Comment on above: Performed By: #### T 4, BNP, MG, TSH, CMADM, CRP, CMP ####[facility] Prvqqxkrfx495[address] [place], [place] [address]Dr. Airam Tripathi OSMOLALITYon 06-08-2022 Osmolality [Osmolality] 272 mosm/kg Critically low 275-295 [facility] Comment on above: Performed By: #### O SMO ####[facility] Cxhhldsqku045[address] [place], [place] [address]Dr. Airam Tripathi CBC AUTO DIFFon 06-06-2022 BASO # 0.0 103/ul Normal 0.0-0.1 [facility] Comment on above: Performed By: #### C BC ####[facility] Fupdvbrxyw4[address] [place] [id number]. Airam Tripathi Basophils/100 WBC (Bld) 0.3 % Normal 0.2-2.0 [facility] Comment on above: Performed By: #### C BC ####[facility] Gfsgjjszqw7191 [place] [id number]. Airam Tripathi EO # 0.2 103/ul Normal 0.0-0.7 [facility] Comment on above: Performed By: #### C BC ####[facility] Rifpyycuny[address] [place], [place] [address]Dr. Airam Tripathi Eosinophils/100 WBC (Bld) 2.5 % Normal 0.9-7.0 [facility] Comment on above: Performed By: #### C BC ####[facility] Btuufowxps[address] [place], [place] [address]Dr. Airam Tripathi Erythrocyte distribution width (RBC) [Ratio] 12.9 % Normal 11.0-15.0 [facility] Comment on above: Performed By: #### C BC ####[facility] Qfkxtbyufv6[address] [place], [place] [address]Dr. Airam Tripathi Hematocrit (Bld) [Volume fraction] 29.8 % Critically low 36.0-48.0 [facility] Comment on above: Performed By: #### C BC ####[facility] Wvljwjvvdz88[address] [place], [place] [address]Dr. Airam Tripathi Hemoglobin (Bld) [Mass/Vol] 9.7 g/dL Critically low 12.0-16.0 [facility] Comment on above: Performed By: #### C BC ####[facility] Vihevbaqej7056 [place] [phone]. Airam Tripathi IG # 0.03 10e3/ul Normal 0.00-0.03 [facility] Comment on above: Performed By: #### C BC ####[facility] Zhaycfqare[address] [place], [place] [address]Dr. Airam Tripathi IG % 0.3 % Normal 0.0-0.5 [facility] Comment on above: Performed By: #### C BC ####[facility] Zpthdbmils7439 [place] [id number]. Airam Tripathi LYMPH # 1.3 103/ul Normal 1.2-3.8 [facility] Comment on above: Performed By: #### C BC ####[facility] Xkadxzvtth8029 [place] [id number]. Airam Tripathi Lymphocytes/100 WBC (Bld) 14.6 % Critically low 20.5-60.0 [facility] Comment on above: Performed By: #### C BC ####[facility] Lfonjtmifz5703 [place] [id number]. Airam Tripathi MANUAL DIFF REQ NO Normal [facility] Comment on above: Performed By: #### C BC ####[facility] Kwjakgurnu0445 [place] [id number]. Airam Tripathi MCH (RBC) [Entitic mass] 30.6 pg Normal 26.7-34.0 [facility] Comment on above: Performed By: #### C BC ####[facility] Mplzuvhthm5785 [place] [id number]. Airam Tripathi MCHC (RBC) [Mass/Vol] 32.6 g/dL Normal 29.9-35.2 [facility] Comment on above: Performed By: #### C BC ####[facility] Yckoerhpxq0942 [place] [id number]. Airam Tripathi MCV (RBC) [Entitic vol] 94.0 fL Normal 81.0-99.0 [facility] Comment on above: Performed By: #### C BC ####[facility] Dqsdqjikwm7226 [place] [id number]. Airam Tripathi MONO # 0.5 103/ul Normal 0.3-0.8 [facility] Comment on above: Performed By: #### C BC ####[facility] Fscemgerbu4079 [place] [id number]. Airam Tripathi Monocytes/100 WBC (Bld) 5.7 % Normal 1.7-12.0 [facility] Comment on above: Performed By: #### C BC ####[facility] Houfityufz8[address] [place] [id number]. Airam Tripathi NEUT # 6.9 103/ul Critically high 1.4-6.5 [facility] Comment on above: Performed By: #### C BC ####[facility] Xrihkgwqcj5327 [place] [id number]. Airam Tripathi Neutrophils/100 WBC (Bld) 76.6 % Critically high 43.0-75.0 [facility] Comment on above: Performed By: #### C BC ####[facility] Wapvixbamw13[address] [place] [phone]. Airam Tripathi Platelet mean volume (Bld) [Entitic vol] 9.2 fL Critically low 9.5-13.5 [facility] Comment on above: Performed By: #### C BC ####[facility] Vyzuqxlznz8077 [place] [phone]. Airam Deuce PLT 271 103/ul Normal 150-450 [facility] Comment on above: Performed By: #### C BC ####[facility] Ulalaoudmp0389 [place] [id number]. Airam Tripathi RBC 3.17 106/ul Critically low 4.20-5.40 [facility] Comment on above: Performed By: #### C BC ####[facility] Scfeqrsrat2114 [place] [phone]. Airam Tripathi WBC 9.1 103/ul Normal 4.0-11.0 [facility] Comment on above: Performed By: #### C BC ####[facility] Sgzxxtwtyp1890 [place] [address]Dr. Airam Tripathi PROF 14(COMP METB)on 022 Albumin [Mass/Vol] 3.4 g/dL Normal 3.4-5.0 [facility] Comment on above: Performed By: #### C MP ####[facility] Fymewzxwmh1903 [place] [id number]. Airam Tripathi Albumin/Globulin [Mass ratio] 1.0 {ratio} Normal [facility] Comment on above: Performed By: #### C MP ####[facility] Nxbslkcxmn7321 [place] [phone]. Airam Tripathi ALP [Catalytic activity/Vol] 156 U/L Critically high 46-116 [facility] Comment on above: Performed By: #### C MP ####[facility] Wrywcwwpqg0543 [place] [phone]. Airam Tripathi ALT [Catalytic activity/Vol] 18 U/L Normal 14-59 [facility] Comment on above: Performed By: #### C MP ####[facility] Xbsnomcdnc3182 [place] [address]Dr. Airam Tripathi Anion gap [Moles/Vol] 10.8 mmol/L Normal [facility] Comment on above: Performed By: #### C MP ####[facility] Ntgbgwurkg[address] [place], [place] [address]Dr. Airam Tripathi AST [Catalytic activity/Vol] 27 U/L Normal 15-37 [facility] Comment on above: Performed By: #### C MP ####[facility] Xdrgeapwrm[address] [place], [place] [address]Dr. Airam Tripathi Bilirubin [Mass/Vol] 0.2 mg/dL Normal 0.2-1.0 [facility] Comment on above: Performed By: #### C MP ####[facility] Luovnsrfxa32[address] [place], [place] [address]Dr. Airam Tripathi Calcium [Mass/Vol] 8.1 mg/dL Critically low 8.5-10.1 [facility] Comment on above: Performed By: #### C MP ####[facility] Xgtlmfqtyz5511 [place] [address]Dr. Airam Tripathi Chloride [Moles/Vol] 92 mmol/L Critically low 98-107 [facility] Comment on above: Performed By: #### C MP ####[facility] Rdzlglatbg[address] [place], [place] [address]Dr. Airam Tripathi CO2 [Moles/Vol] 27.4 mmol/L Normal 21.0-32.0 [facility] Comment on above: Performed By: #### C MP ####[facility] Zqctrfifqq3442 [place] [phone]. Airam Tripathi Creatinine [Mass/Vol] 1.57 mg/dL Critically high 0.55-1.02 [facility] Comment on above: Performed By: #### C MP ####[facility] Fallbjznqd3814 [place] [phone]. Airam Tripathi EGFR-AF MALAGASY 41 mL/min/1.73m2 Critically low >=60 [facility] Comment on above: Performed By: #### C MP ####[facility] Eftrlsubky6628 [place] [phone]. Airam Tripathi EGFR-NON AF MALAGASY 34 mL/min/1.73m2 Critically low >=60 [facility] Comment on above: Performed By: #### C MP ####[facility] Xkahljdcif7225 [place] [address]Dr. Airam Tripathi Globulin (S) [Mass/Vol] 3.4 g/dL Normal [facility] Comment on above: Performed By: #### C MP ####[facility] Yaqrhngrfe5680 [place] [address]Dr. Airam Tripathi Glucose [Mass/Vol] 82 mg/dL Normal 74-106 [facility] Comment on above: Performed By: #### C MP ####[facility] Zdkkjyenau1612 [place] [address]Dr. Airam Tripathi Potassium [Moles/Vol] 4.2 mmol/L Normal 3.5-5.1 [facility] Comment on above: Performed By: #### C MP ####[facility] Mtnbmwxkyr3080 [place] [address]Dr. Airam Tripathi Protein [Mass/Vol] 6.8 g/dL Normal 6.4-8.2 [facility] Comment on above: Performed By: #### C MP ####[facility] Vzjioswdbb5666 [place] [address]Dr. Airam Tripathi Sodium [Moles/Vol] 126 mmol/L Critically low 136-145 [facility] Comment on above: Performed By: #### C MP ####[facility] Jroafwxdvx34[address] [place], [place] [address]Dr. Airam Tripathi Urea nitrogen [Mass/Vol] 35.0 mg/dL Critically high 7.0-18.0 [facility] Comment on above: Performed By: #### C MP ####[facility] Jpghciftex94[address] [place], [place] [address]Dr. Airam Tripathi Urea nitrogen/Creatinine [Mass ratio] 22.3 mg/mg Normal [facility] Comment on above: Performed By: #### C MP ####[facility] Txjgitjvbt[address] [place], [place] [address]Dr. Airam Tripathi OSMOLALITYon 06-02-2022 Osmolality [Osmolality] 276 mosm/kg Normal 275-295 [facility] Comment on above: Performed By: #### O SMO ####[facility] Kaihnqdjur16[address] [place], [place] [address]Dr. Airam Tripathi CBC AUTO DIFFon 06-01-2022 BASO # 0.1 103/ul Normal 0.0-0.1 [facility] Comment on above: Performed By: #### C BC ####[facility] Fxvjoykcom[address] [place], [place] [address]Dr. Airam Tripathi Basophils/100 WBC (Bld) 0.7 % Normal 0.2-2.0 [facility] Comment on above: Performed By: #### C BC ####[facility] Ermneefmhd7[address] [place], [place] [address]Dr. Airam Tripathi EO # 0.3 103/ul Normal 0.0-0.7 [facility] Comment on above: Performed By: #### C BC ####[facility] Hpczuwznil8[address] [place], [place] [address]Dr. Airam Tripathi Eosinophils/100 WBC (Bld) 3.3 % Normal 0.9-7.0 [facility] Comment on above: Performed By: #### C BC ####[facility] Wxscuhodke13[address] [place], [place] [address]Dr. Airam Tripathi Erythrocyte distribution width (RBC) [Ratio] 13.2 % Normal 11.0-15.0 [facility] Comment on above: Performed By: #### C BC ####[facility] Yqdqtuusse9127 [place] [address]Dr. Airam Tripathi Hematocrit (Bld) [Volume fraction] 32.0 % Critically low 36.0-48.0 [facility] Comment on above: Performed By: #### C BC ####[facility] Znugfuncur7101 [place] [address]Dr. Airam Tripathi Hemoglobin (Bld) [Mass/Vol] 10.3 g/dL Critically low 12.0-16.0 [facility] Comment on above: Performed By: #### C BC ####[facility] Mpowafkmsc[address] [place], [place] [address]Dr. Airam Tripathi IG # 0.05 10e3/ul Critically high 0.00-0.03 [facility] Comment on above: Performed By: #### C BC ####[facility] Guocyvjkdd[address] [place], [place] [address]Dr. Airam Tripathi IG % 0.7 % Critically high 0.0-0.5 [facility] Comment on above: Performed By: #### C BC ####[facility] Hucvphjkpx[address] [place], [place] [address]Dr. Airam Tripathi LYMPH # 1.7 103/ul Normal 1.2-3.8 [facility] Comment on above: Performed By: #### C BC ####[facility] Ciujccrbis[address] [place], [place] [address]Dr. Airam Tripathi Lymphocytes/100 WBC (Bld) 22.6 % Normal 20.5-60.0 [facility] Comment on above: Performed By: #### C BC ####[facility] Gnnxgplgaa[address] [place], [place] [address]Dr. Airam Tripathi MANUAL DIFF REQ NO Normal [facility] Comment on above: Performed By: #### C BC ####[facility] Twtbowjnyx[address] [place], [place] [address]Dr. Airam Tripathi MCH (RBC) [Entitic mass] 30.8 pg Normal 26.7-34.0 [facility] Comment on above: Performed By: #### C BC ####[facility] Ssrvinelhk[address] [place] [phone]. Airam Deuce MCHC (RBC) [Mass/Vol] 32.2 g/dL Normal 29.9-35.2 [facility] Comment on above: Performed By: #### C BC ####[facility] Vuobxymjdt6497 [place] [phone]. Airam Tripathi MCV (RBC) [Entitic vol] 95.8 fL Normal 81.0-99.0 [facility] Comment on above: Performed By: #### C BC ####[facility] Bdioupewvr9[address] [place], [place] [address]Dr. Airam Tripathi MONO # 0.6 103/ul Normal 0.3-0.8 [facility] Comment on above: Performed By: #### C BC ####[facility] Hcndzxtowh[address] [place], [place] [address]Dr. Airam Tripathi Monocytes/100 WBC (Bld) 8.6 % Normal 1.7-12.0 [facility] Comment on above: Performed By: #### C BC ####[facility] Ebrkaaxkas[address] [place], [place] [address]Dr. Airam Tripathi NEUT # 4.8 103/ul Normal 1.4-6.5 [facility] Comment on above: Performed By: #### C BC ####[facility] Bwpqhuwaww[address] [place], [place] [address]Dr. Airam Tripathi Neutrophils/100 WBC (Bld) 64.1 % Normal 43.0-75.0 [facility] Comment on above: Performed By: #### C BC ####[facility] [address]bswjyufqn54[address] [place], [place] [address]Dr. Airam Tripathi Platelet mean volume (Bld) [Entitic vol] 10.0 fL Normal 9.5-13.5 [facility] Comment on above: Performed By: #### C BC ####[facility] Karlczhjbb[address] [place], [place] [address]Dr. Airam Tripathi PLT 322 103/ul Normal 150-450 [facility] Comment on above: Performed By: #### C BC ####[facility] Ramipueivu3172 [place] [phone]. Selenaneil Deuce RBC 3.34 106/ul Critically low 4.20-5.40 [facility] Comment on above: Performed By: #### C BC ####[facility] Lotugsbktm2766 [place] [phone]. Airam Tripathi WBC 7.5 103/ul Normal 4.0-11.0 [facility] Comment on above: Performed By: #### C BC ####[facility] Vvyauaysvl3018 [place] [address]Dr. Airam Tripathi PROF 14(COMP METB)on 022 Albumin [Mass/Vol] 3.5 g/dL Normal 3.4-5.0 [facility] Comment on above: Performed By: #### C MP ####[facility] Rhmmeaiplh5388 [place] [address]Dr. Airam Tripathi Albumin/Globulin [Mass ratio] 1.1 {ratio} Normal [facility] Comment on above: Performed By: #### C MP ####[facility] Jbgmckjgvq3036 [place] [address]Dr. Airam Tripathi ALP [Catalytic activity/Vol] 167 U/L Critically high 46-116 [facility] Comment on above: Performed By: #### C MP ####[facility] Imurvcwfez2583 [place] [address]Dr. Airam Tripathi ALT [Catalytic activity/Vol] 24 U/L Normal 14-59 [facility] Comment on above: Performed By: #### C MP ####[facility] Tijxvaaqba2765 [place] [address]Dr. Airam Tripathi Anion gap [Moles/Vol] 14.1 mmol/L Normal [facility] Comment on above: Performed By: #### C MP ####[facility] Acizbtzzpv3646 [place] [address]Dr. Airam Tripathi AST [Catalytic activity/Vol] 27 U/L Normal 15-37 [facility] Comment on above: Performed By: #### C MP ####[facility] Rsqhzttzma0234 [place] [phone]. Airam Tripathi Bilirubin [Mass/Vol] 0.3 mg/dL Normal 0.2-1.0 [facility] Comment on above: Performed By: #### C MP ####[facility] Gbbxtnwwjs19[address] [place], [place] [address]Dr. Airam Tripathi Calcium [Mass/Vol] 8.0 mg/dL Critically low 8.5-10.1 [facility] Comment on above: Performed By: #### C MP ####[facility] Qtzjufynqw3819 [place] [phone]. Airam Tripathi Chloride [Moles/Vol] 96 mmol/L Critically low 98-107 [facility] Comment on above: Performed By: #### C MP ####[facility] Hxelnsaqxf67[address] [place], [place] [address]Dr. Airam Tripathi CO2 [Moles/Vol] 24.6 mmol/L Normal 21.0-32.0 [facility] Comment on above: Performed By: #### C MP ####[facility] Lhtlucvvzk[address] [place], [place] [address]Dr. Airam Tripathi Creatinine [Mass/Vol] 1.79 mg/dL Critically high 0.55-1.02 [facility] Comment on above: Performed By: #### C MP ####[facility] Lypbzvffdg[address] [place], [place] [address]Dr. Airam Tripathi EGFR-AF MALAGASY 35 mL/min/1.73m2 Critically low >=60 [facility] Comment on above: Performed By: #### C MP ####[facility] Bhwirepxaq8179 [place] [phone]. Airam Tripathi EGFR-NON AF MALAGASY 29 mL/min/1.73m2 Critically low >=60 [facility] Comment on above: Performed By: #### C MP ####[facility] Ymjxcvtbod[address] [place], [place] [address]Dr. Airam Tripathi Globulin (S) [Mass/Vol] 3.3 g/dL Normal [facility] Comment on above: Performed By: #### C MP ####[facility] Jmdaaznszk3814 [place] [phone]. Airam Tripathi Glucose [Mass/Vol] 58 mg/dL Critically low 74-106 [facility] Comment on above: Performed By: #### C MP ####[facility] Oqhudkdjpl4402 [place] [address]Dr. Airam Tripathi Potassium [Moles/Vol] 4.7 mmol/L Normal 3.5-5.1 [facility] Comment on above: Performed By: #### C MP ####[facility] Dzcirkhmuj1528 [place] [address]Dr. Airam Tripathi Protein [Mass/Vol] 6.8 g/dL Normal 6.4-8.2 [facility] Comment on above: Performed By: #### C MP ####[facility] Vhoamwbvvv[address] [place], [place] [address]Dr. Airam Tripathi Sodium [Moles/Vol] 130 mmol/L Critically low 136-145 [facility] Comment on above: Performed By: #### C MP ####[facility] Gkufwwkbch[address] [place], [place] [address]Dr. Airam Tripathi Urea nitrogen [Mass/Vol] 30.0 mg/dL Critically high 7.0-18.0 [facility] Comment on above: Performed By: #### C MP ####[facility] Rzagmyltpx[address] [place], [place] [address]Dr. Airam Tripathi Urea nitrogen/Creatinine [Mass ratio] 16.8 mg/mg Normal [facility] Comment on above: Performed By: #### C MP ####[facility] Iczcsvjmne9085 [place] [address]Dr. Airam Tripathi OSMOLALITYon 05-28-2022 Osmolality [Osmolality] 275 mosm/kg Normal 275-295 [facility] Comment on above: Performed By: #### O SMO ####[facility] Atsqqjraky[address] [place], [place] [address]Dr. Airam Tripathi CBC AUTO DIFFon 05-26-2022 BASO # 0.0 103/ul Normal 0.0-0.1 [facility] Comment on above: Performed By: #### C BC ####[facility] Sswhvwgvfr1425 [place] [id number]. Airam Tripathi Basophils/100 WBC (Bld) 0.4 % Normal 0.2-2.0 [facility] Comment on above: Performed By: #### C BC ####[facility] Xgtididp[address] [place], [place] [id number]. Airam Tripathi EO # 0.3 103/ul Normal 0.0-0.7 [facility] Comment on above: Performed By: #### C BC ####[facility] Wrlulaslpk[address] [place], [place] [address]Dr. Airam Tripathi Eosinophils/100 WBC (Bld) 3.2 % Normal 0.9-7.0 [facility] Comment on above: Performed By: #### C BC ####[facility] Dtwrlnkryf8[address] [place], [place] [address]Dr. Airam Tripathi Erythrocyte distribution width (RBC) [Ratio] 13.0 % Normal 11.0-15.0 [facility] Comment on above: Performed By: #### C BC ####[facility] Gjvgxuculm[address] [place], [place] [address]Dr. Airam Tripathi Hematocrit (Bld) [Volume fraction] 30.4 % Critically low 36.0-48.0 [facility] Comment on above: Performed By: #### C BC ####[facility] Kekctkedqb[address] [place], [place] [address]Dr. Airam Tripathi Hemoglobin (Bld) [Mass/Vol] 9.6 g/dL Critically low 12.0-16.0 [facility] Comment on above: Performed By: #### C BC ####[facility] Kbfbkobagm7[address] [place], [place] [address]Dr. Airam Tripathi IG # 0.06 10e3/ul Critically high 0.00-0.03 [facility] Comment on above: Performed By: #### C BC ####[facility] Cpfkqywazl[address] [place], [place] [address]Dr. Airam Tripathi IG % 0.7 % Critically high 0.0-0.5 [facility] Comment on above: Performed By: #### C BC ####[facility] [address]terwcywhx[address] [place] [id number]. Airam Tripathi LYMPH # 1.9 103/ul Normal 1.2-3.8 [facility] Comment on above: Performed By: #### C BC ####[facility] Alijaznffz10[address] [place] [id number]. Airam Tripathi Lymphocytes/100 WBC (Bld) 20.6 % Normal 20.5-60.0 [facility] Comment on above: Performed By: #### C BC ####[facility] Nsgntvmihe[address] [place], [place] [address]Dr. Airam Tripathi MANUAL DIFF REQ NO Normal [facility] Comment on above: Performed By: #### C BC ####[facility] Epewpacalc9934[address] [place], [place] [address]Dr. Airam Tripathi MCH (RBC) [Entitic mass] 30.1 pg Normal 26.7-34.0 [facility] Comment on above: Performed By: #### C BC ####[facility] Ijbxnchaqy[address] [place], [place] [address]Dr. Airam Tripathi MCHC (RBC) [Mass/Vol] 31.6 g/dL Normal 29.9-35.2 [facility] Comment on above: Performed By: #### C BC ####[facility] Xvjjhcnbmu06[address] [place], [place] [address]Dr. Airam Tripathi MCV (RBC) [Entitic vol] 95.3 fL Normal 81.0-99.0 [facility] Comment on above: Performed By: #### C BC ####[facility] Nsmgihjpyd[address] [place], [place] [address]Dr. Airam Tripathi MONO # 0.6 103/ul Normal 0.3-0.8 [facility] Comment on above: Performed By: #### C BC ####[facility] Aaymmdmpqj100[address] [place] [id number]. Airam Tripathi Monocytes/100 WBC (Bld) 6.9 % Normal 1.7-12.0 [facility] Comment on above: Performed By: #### C BC ####[facility] Wpbgifekhl6259 [place] [id number]. Airam Tripathi NEUT # 6.1 103/ul Normal 1.4-6.5 [facility] Comment on above: Performed By: #### C BC ####[facility] Cumymjqgjj5[address] [place] [id number]. Airam Tripathi Neutrophils/100 WBC (Bld) 68.2 % Normal 43.0-75.0 [facility] Comment on above: Performed By: #### C BC ####[facility] Ewxfknnjvn4460 [place] [address]Dr. Airam Tripathi Platelet mean volume (Bld) [Entitic vol] 9.7 fL Normal 9.5-13.5 [facility] Comment on above: Performed By: #### C BC ####[facility] Lqkeuvlxea6[address] [place], [place] [address]Dr. Airam Tripathi PLT 317 103/ul Normal 150-450 [facility] Comment on above: Performed By: #### C BC ####[facility] Pyruacwksr59[address] [place] [address]Dr. Airam Tripathi RBC 3.19 106/ul Critically low 4.20-5.40 [facility] Comment on above: Performed By: #### C BC ####[facility] Tdeafxboge9799 [place] [address]Dr. Airam Tripathi WBC 9.0 103/ul Normal 4.0-11.0 [facility] Comment on above: Performed By: #### C BC ####[facility] Ucjodxwfab7069 [place] [address]DrKianna Tripathi PROF 14(COMP METB)on 022 Albumin [Mass/Vol] 3.4 g/dL Normal 3.4-5.0 [facility] Comment on above: Performed By: #### C MP ####[facility] Rwnezfkvhn9507 [place] [address]Dr. Airam Tripathi Albumin/Globulin [Mass ratio] 1.0 {ratio} Normal [facility] Comment on above: Performed By: #### C MP ####[facility] Snlzlcvhgy5927 [place] [address]Dr. Airam Tripathi ALP [Catalytic activity/Vol] 153 U/L Critically high 46-116 [facility] Comment on above: Performed By: #### C MP ####[facility] Pfffnlgrle3891 [place] [address]Dr. Airam Tripathi ALT [Catalytic activity/Vol] 21 U/L Normal 14-59 [facility] Comment on above: Performed By: #### C MP ####[facility] Sernpwsbbo3380 [place] [address]Dr. Airam Tripathi Anion gap [Moles/Vol] 13.6 mmol/L Normal [facility] Comment on above: Performed By: #### C MP ####[facility] Fovvqmzyjl[address] [place], [place] [address]Dr. Airam Tripathi AST [Catalytic activity/Vol] 23 U/L Normal 15-37 [facility] Comment on above: Performed By: #### C MP ####[facility] Uargxdmbog4811[address] [place], [place] [address]Dr. Airam Tripathi Bilirubin [Mass/Vol] 0.2 mg/dL Normal 0.2-1.0 [facility] Comment on above: Performed By: #### C MP ####[facility] Cguejwhcjo9[address] [place], [place] [address]Dr. Airam Triptahi Calcium [Mass/Vol] 8.4 mg/dL Critically low 8.5-10.1 [facility] Comment on above: Performed By: #### C MP ####[facility] Impecgbmfc330[address] [place], [place] [address]Dr. Airam Tripathi Chloride [Moles/Vol] 97 mmol/L Critically low 98-107 [facility] Comment on above: Performed By: #### C MP ####[facility] Lbwistuvdx059[address] [place], [place] [address]Dr. Airam Deuce CO2 [Moles/Vol] 25.2 mmol/L Normal 21.0-32.0 [facility] Comment on above: Performed By: #### C MP ####[facility] Jixfrxgpkc6822 [place] [address]Dr. Airam Tripathi Creatinine [Mass/Vol] 1.58 mg/dL Critically high 0.55-1.02 [facility] Comment on above: Performed By: #### C MP ####[facility] Jcxitodrav8229 [place] [address]Dr. Airam Tripathi EGFR-AF MALAGASY 40 mL/min/1.73m2 Critically low >=60 [facility] Comment on above: Performed By: #### C MP ####[facility] Emiripnxhi3901 [place] [address]Dr. Airam Tripathi EGFR-NON AF MALAGASY 33 mL/min/1.73m2 Critically low >=60 [facility] Comment on above: Performed By: #### C MP ####[facility] Aifvoixolt28[address] [place], [place] [address]Dr. Airam Deuce Globulin (S) [Mass/Vol] 3.4 g/dL Normal [facility] Comment on above: Performed By: #### C MP ####[facility] Fhwudgmoxc1561 [place] [address]Dr. Airam Tripathi Glucose [Mass/Vol] 74 mg/dL Normal 74-106 [facility] Comment on above: Performed By: #### C MP ####[facility] Qwgggdefcf[address] [place], [place] [address]Dr. Airam Tripathi Potassium [Moles/Vol] 4.8 mmol/L Normal 3.5-5.1 [facility] Comment on above: Performed By: #### C MP ####[facility] Vllylfkpcn[address] [place], [place] [address]Dr. Airam Tripathi Protein [Mass/Vol] 6.8 g/dL Normal 6.4-8.2 [facility] Comment on above: Performed By: #### C MP ####[facility] Swtymjoanq8329[address] [place], [place] [address]Dr. Airam Tripathi Sodium [Moles/Vol] 131 mmol/L Critically low 136-145 [facility] Comment on above: Performed By: #### C MP ####[facility] Avhzjeaybz64[address] [place] [id number]. Airam Tripathi Urea nitrogen [Mass/Vol] 31.0 mg/dL Critically high 7.0-18.0 [facility] Comment on above: Performed By: #### C MP ####[facility] Duseyejzzr4304 [place] [address]Dr. Airam Tripathi Urea nitrogen/Creatinine [Mass ratio] 19.6 mg/mg Normal [facility] Comment on above: Performed By: #### C MP ####[facility] Urjvhzceks6735[address] [place], [place] [address]Dr. Airam Tripathi OSMOLALITYon 05-19-2022 Osmolality [Osmolality] 281 mosm/kg Normal 275-295 [facility] Comment on above: Performed By: #### O SMO ####[facility] Nvvpnwkeil6[address] [place], [place] [address]Dr. Airam Tripathi CBC AUTO DIFFon 05-17-2022 BASO # 0.1 103/ul Normal 0.0-0.1 [facility] Comment on above: Performed By: #### C BC ####[facility] Pkgxurorly[address] [place], [place] [address]Dr. Airam Tripathi Basophils/100 WBC (Bld) 0.6 % Normal 0.2-2.0 [facility] Comment on above: Performed By: #### C BC ####[facility] Rfoyzqnotq1616[address] [place], [place] [address]Dr. Airam Tripathi EO # 0.2 103/ul Normal 0.0-0.7 [facility] Comment on above: Performed By: #### C BC ####[facility] Mducahkyeh41[address] [place], [place] [address]Dr. Airam Tripathi Eosinophils/100 WBC (Bld) 1.9 % Normal 0.9-7.0 [facility] Comment on above: Performed By: #### C BC ####[facility] Jhfuketgti4626[address] [place], [place] [address]Dr. Airam Tripathi Erythrocyte distribution width (RBC) [Ratio] 12.9 % Normal 11.0-15.0 [facility] Comment on above: Performed By: #### C BC ####[facility] Opdlpmbfvv5952 [place] [address]Dr. Airam Tripathi Hematocrit (Bld) [Volume fraction] 32.1 % Critically low 36.0-48.0 [facility] Comment on above: Performed By: #### C BC ####[facility] Hxlcnukvpe3542 [place] [address]DrKianna Tripathi Hemoglobin (Bld) [Mass/Vol] 9.9 g/dL Critically low 12.0-16.0 [facility] Comment on above: Performed By: #### C BC ####[facility] Mixknedfnb65[address] [place], [place] [address]DrKianna Tripathi IG # 0.05 10e3/ul Critically high 0.00-0.03 [facility] Comment on above: Performed By: #### C BC ####[facility] Xfsxboanxa8[address] [place], [place] [address]DrKianna Tripathi IG % 0.6 % Critically high 0.0-0.5 [facility] Comment on above: Performed By: #### C BC ####[facility] Wocyxpvags2[address] [place], [place] [address]DrKianna Tripathi LYMPH # 1.3 103/ul Normal 1.2-3.8 [facility] Comment on above: Performed By: #### C BC ####[facility] Qfrfustpao9770[address] [place], [place] [address]DrKianna Tripathi Lymphocytes/100 WBC (Bld) 15.2 % Critically low 20.5-60.0 [facility] Comment on above: Performed By: #### C BC ####[facility] Tqwapskapd454[address] [place], [place] [address]DrKianna Tripathi MANUAL DIFF REQ NO Normal [facility] Comment on above: Performed By: #### C BC ####[facility] Xbpqstmoiv96[address] [place], [place] [address]DrKianna Tripathi MCH (RBC) [Entitic mass] 30.0 pg Normal 26.7-34.0 [facility] Comment on above: Performed By: #### C BC ####[facility] Pkljmnmnpo1766 [place] [id number]. Airam Deuce MCHC (RBC) [Mass/Vol] 30.8 g/dL Normal 29.9-35.2 [facility] Comment on above: Performed By: #### C BC ####[facility] Vvhjugvpep0030 [place] [id number]. Airam Tripathi MCV (RBC) [Entitic vol] 97.3 fL Normal 81.0-99.0 [facility] Comment on above: Performed By: #### C BC ####[facility] Fovczpgkso5309[address] [place], [place] [address]Dr. Airam Tripathi MONO # 0.5 103/ul Normal 0.3-0.8 [facility] Comment on above: Performed By: #### C BC ####[facility] Grapykpgga017[address] [place], [place] [address]Dr. Airam Tripathi Monocytes/100 WBC (Bld) 5.4 % Normal 1.7-12.0 [facility] Comment on above: Performed By: #### C BC ####[facility] Nzbgtezjlj[address] [place], [place] [address]Dr. Airam Tripathi NEUT # 6.5 103/ul Normal 1.4-6.5 [facility] Comment on above: Performed By: #### C BC ####[facility] Tejbforlrw[address] [place], [place] [address]Dr. Airam Tripathi Neutrophils/100 WBC (Bld) 76.3 % Critically high 43.0-75.0 [facility] Comment on above: Performed By: #### C BC ####[facility] Cmoufnzhxy[address] [place], [place] [address]DrKianna Tripathi Platelet mean volume (Bld) [Entitic vol] 10.1 fL Normal 9.5-13.5 [facility] Comment on above: Performed By: #### C BC ####[facility] Qhhmyvrwgg[address] [place], [place] [address]Dr. Airam Tripathi PLT 284 103/ul Normal 150-450 [facility] Comment on above: Performed By: #### C BC ####[facility] Ejpvdvirbd6813 [place] [id number]. Airam Tripathi RBC 3.30 106/ul Critically low 4.20-5.40 [facility] Comment on above: Performed By: #### C BC ####[facility] Vzjgqarizj4697 [place] [id number]. Airam Tripathi WBC 8.5 103/ul Normal 4.0-11.0 [facility] Comment on above: Performed By: #### C BC ####[facility] Qqubqniixf3171 [place] [address]Dr. Airam Tripathi PROF 14(COMP METB)on 022 Albumin [Mass/Vol] 3.1 g/dL Critically low 3.4-5.0 [facility] Comment on above: Performed By: #### C MP ####[facility] Xxoqpzcpbn2611 [place] [address]Dr. Airam Tripathi Albumin/Globulin [Mass ratio] 0.9 {ratio} Normal [facility] Comment on above: Performed By: #### C MP ####[facility] Eudwnrxbtz[address] [place], [place] [address]Dr. Airam Tripathi ALP [Catalytic activity/Vol] 162 U/L Critically high 46-116 [facility] Comment on above: Performed By: #### C MP ####[facility] Diuxtyzafm3255 [place] [address]Dr. Airam Tripathi ALT [Catalytic activity/Vol] 22 U/L Normal 14-59 [facility] Comment on above: Performed By: #### C MP ####[facility] Yorjazdcao1357 [place] [id number]. Airam Tripathi Anion gap [Moles/Vol] 9.4 mmol/L Normal [facility] Comment on above: Performed By: #### C MP ####[facility] Qzbhivfgzj2209 [place] [address]Dr. Airam Tripathi AST [Catalytic activity/Vol] 26 U/L Normal 15-37 [facility] Comment on above: Performed By: #### C MP ####[facility] Ocgziynlnr9398 [place] [id number]. Airam Tripathi Bilirubin [Mass/Vol] 0.2 mg/dL Normal 0.2-1.0 [facility] Comment on above: Performed By: #### C MP ####[facility] Ifdvwykzls0427 [place] [id number]. Airam Tripathi Calcium [Mass/Vol] 8.2 mg/dL Critically low 8.5-10.1 [facility] Comment on above: Performed By: #### C MP ####[facility] Gnfpkrhyvd11[address] [place], [place] [address]Dr. Airam Tripathi Chloride [Moles/Vol] 103 mmol/L Normal 98-107 [facility] Comment on above: Performed By: #### C MP ####[facility] Iuclowdxsz769[address] [place], [place] [address]Dr. Airam Tripathi CO2 [Moles/Vol] 24.8 mmol/L Normal 21.0-32.0 [facility] Comment on above: Performed By: #### C MP ####[facility] Xriplerijl308[address] [place], [place] [address]Dr. Airam Tripathi Creatinine [Mass/Vol] 1.19 mg/dL Critically high 0.55-1.02 [facility] Comment on above: Performed By: #### C MP ####[facility] Kebojrpjko[address] [place], [place] [address]Dr. Airam Tripathi EGFR-AF MALAGASY 56 mL/min/1.73m2 Critically low >=60 [facility] Comment on above: Performed By: #### C MP ####[facility] Idsxogzcxs6504 [place] [id number]. Airam Deuce EGFR-NON AF MALAGASY 46 mL/min/1.73m2 Critically low >=60 [facility] Comment on above: Performed By: #### C MP ####[facility] Nqaxffbjnu[address] [place], [place] [address]Dr. Airam Deuce Globulin (S) [Mass/Vol] 3.6 g/dL Normal [facility] Comment on above: Performed By: #### C MP ####[facility] Qgbqgjnofr9211 [place] [address]Dr. Airam Tripathi Glucose [Mass/Vol] 75 mg/dL Normal 74-106 [facility] Comment on above: Performed By: #### C MP ####[facility] Vwktckuqqz2057 [place] [address]Dr. Airam Tripathi Potassium [Moles/Vol] 5.2 mmol/L Critically high 3.5-5.1 [facility] Comment on above: Performed By: #### C MP ####[facility] Szzzgiertr1319 [place] [address]Dr. Airam Tripathi Protein [Mass/Vol] 6.7 g/dL Normal 6.4-8.2 [facility] Comment on above: Performed By: #### C MP ####[facility] Dvnmxqiyty9[address] [place], [place] [address]Dr. Airam Deuce Sodium [Moles/Vol] 132 mmol/L Critically low 136-145 [facility] Comment on above: Performed By: #### C MP ####[facility] Wlqirjguqn25[address] [place], [place] [address]Dr. Airam Deuce Urea nitrogen [Mass/Vol] 28.0 mg/dL Critically high 7.0-18.0 [facility] Comment on above: Performed By: #### C MP ####[facility] Zqoadaetdg449[address] [place], [place] [address]Dr. Airam Deuce Urea nitrogen/Creatinine [Mass ratio] 23.5 mg/mg Normal [facility] Comment on above: Performed By: #### C MP ####[facility] Vnchnsrdxa[address] [place], [place] [address]Dr. Airam Deuce OSMOLALITYon 05-16-2022 Osmolality [Osmolality] 281 mosm/kg Normal 275-295 [facility] Comment on above: Performed By: #### O SMO ####[facility] Ahggwkxupz[address] [place], [place] [address]Dr. Airam Deuce CBC AUTO DIFFon 05-13-2022 BASO # 0.1 103/ul Normal 0.0-0.1 [facility] Comment on above: Performed By: #### C BC ####[facility] Csmjkhmbbi1172 [place] [address]Dr. Airam Deuce Basophils/100 WBC (Bld) 0.5 % Normal 0.2-2.0 [facility] Comment on above: Performed By: #### C BC ####[facility] Xaveswtcew230[address] [place], [place] [address]Dr. Airam Deuce EO # 0.2 103/ul Normal 0.0-0.7 [facility] Comment on above: Performed By: #### C BC ####[facility] Cmxcszfkqo825[address] [place], [place] [address]Dr. Airam Deuce Eosinophils/100 WBC (Bld) 2.1 % Normal 0.9-7.0 [facility] Comment on above: Performed By: #### C BC ####[facility] Liduxakzpy754[address] [place], [place] [address]Dr. Airam Deuce Erythrocyte distribution width (RBC) [Ratio] 12.9 % Normal 11.0-15.0 [facility] Comment on above: Performed By: #### C BC ####[facility] Acdpyqjoik499[address] [place], [place] [address]Dr. Airam Tripathi Hematocrit (Bld) [Volume fraction] 31.9 % Critically low 36.0-48.0 [facility] Comment on above: Performed By: #### C BC ####[facility] Keyuqbicrj364[address] [place], [place] [address]Dr. Airam Tripathi Hemoglobin (Bld) [Mass/Vol] 9.7 g/dL Critically low 12.0-16.0 [facility] Comment on above: Performed By: #### C BC ####[facility] Dhzttvsgkd635[address] [place], [place] [address]Dr. Selenaneil Tripathi IG # 0.06 10e3/ul Critically high 0.00-0.03 [facility] Comment on above: Performed By: #### C BC ####[facility] Irqffrkxgy[address] [place], [place] [address]Dr. Airam Tripathi IG % 0.7 % Critically high 0.0-0.5 [facility] Comment on above: Performed By: #### C BC ####[facility] Iljifsbppe9468 [place] [address]Dr. Airam Deuce LYMPH # 1.9 103/ul Normal 1.2-3.8 [facility] Comment on above: Performed By: #### C BC ####[facility] Wirzkignrc9799 [place] [address]Dr. Selenaneil Tripathi Lymphocytes/100 WBC (Bld) 21.1 % Normal 20.5-60.0 [facility] Comment on above: Performed By: #### C BC ####[facility] Dmwxhehfzr8725[address] [place], [place] [address]Dr. Airam Tripathi MANUAL DIFF REQ NO Normal [facility] Comment on above: Performed By: #### C BC ####[facility] Twrqszuugx9[address] [place], [place] [address]Dr. Selenaneil Tripathi MCH (RBC) [Entitic mass] 29.7 pg Normal 26.7-34.0 [facility] Comment on above: Performed By: #### C BC ####[facility] Ofhwyonjwe1525[address] [place], [place] [address]Dr. Airam Tripathi MCHC (RBC) [Mass/Vol] 30.4 g/dL Normal 29.9-35.2 [facility] Comment on above: Performed By: #### C BC ####[facility] Qfevpitldh[address] [place], [place] [address]Dr. Airam Tripathi MCV (RBC) [Entitic vol] 97.6 fL Normal 81.0-99.0 [facility] Comment on above: Performed By: #### C BC ####[facility] Kyqcdhzelx[address] [place], [place] [address]Dr. Airam Tripathi MONO # 0.6 103/ul Normal 0.3-0.8 [facility] Comment on above: Performed By: #### C BC ####[facility] Udlrfdgksf264[address] [place], [place] [address]Dr. Airam Tripathi Monocytes/100 WBC (Bld) 6.8 % Normal 1.7-12.0 [facility] Comment on above: Performed By: #### C BC ####[facility] Zjtsvxqiue3082 [place] [address]Dr. Airam Tripathi NEUT # 6.3 103/ul Normal 1.4-6.5 [facility] Comment on above: Performed By: #### C BC ####[facility] Qbehhuufid9588 [place] [address]Dr. Airam Tripathi Neutrophils/100 WBC (Bld) 68.8 % Normal 43.0-75.0 [facility] Comment on above: Performed By: #### C BC ####[facility] Smuggjzahu1005 [place] [address]Dr. Airam Tripathi Platelet mean volume (Bld) [Entitic vol] 9.6 fL Normal 9.5-13.5 [facility] Comment on above: Performed By: #### C BC ####[facility] Prxkhaeugd[address] [place], [place] [address]Dr. Airam Tripathi PLT 295 103/ul Normal 150-450 [facility] Comment on above: Performed By: #### C BC ####[facility] [address]ytjyqubbf[address] [place], [place] [address]Dr. Airam Tripathi RBC 3.27 106/ul Critically low 4.20-5.40 [facility] Comment on above: Performed By: #### C BC ####[facility] Qalhdheujv[address] [place], [place] [address]Dr. Airam Tripathi WBC 9.1 103/ul Normal 4.0-11.0 [facility] Comment on above: Performed By: #### C BC ####[facility] Xmpaxaflgy9856 [place] [address]DrKianna Tripathi PROF 14(COMP METB)on 022 Albumin [Mass/Vol] 3.3 g/dL Critically low 3.4-5.0 [facility] Comment on above: Performed By: #### C MP ####[facility] R[address]cuvldqi[address] [place], [place] [address]DrKianna Tripathi Albumin/Globulin [Mass ratio] 1.0 {ratio} Normal [facility] Comment on above: Performed By: #### C MP ####[facility] Lqvdvfdhzp6936 [place] [address]Dr. Airam Tripathi ALP [Catalytic activity/Vol] 152 U/L Critically high 46-116 [facility] Comment on above: Performed By: #### C MP ####[facility] [facility] [address] [place] [address]Dr. Airam Deuce ALT [Catalytic activity/Vol] 23 U/L Normal 14-59 [facility] Comment on above: Performed By: #### C MP ####[facility] Xtgqlbftvb[address] [place], [place] [address]Dr. Selenaneil Deuce Anion gap [Moles/Vol] 12.0 mmol/L Normal [facility] Comment on above: Performed By: #### C MP ####[facility] Kyryvtldjo[address] [place], [place] [address]Dr. Airam Deuce AST [Catalytic activity/Vol] 25 U/L Normal 15-37 [facility] Comment on above: Performed By: #### C MP ####[facility] Sxukbdakns[address] [place], [place] [address]Dr. Airam Deuce Bilirubin [Mass/Vol] 0.2 mg/dL Normal 0.2-1.0 [facility] Comment on above: Performed By: #### C MP ####[facility] Jnrivhdsev[address] [place], [place] [address]Dr. Selenaneil Deuce Calcium [Mass/Vol] 8.2 mg/dL Critically low 8.5-10.1 [facility] Comment on above: Performed By: #### C MP ####[facility] Wznfgarsiz47[address] [place], [place] [address]Dr. Airam Tripathi Chloride [Moles/Vol] 100 mmol/L Normal 98-107 [facility] Comment on above: Performed By: #### C MP ####[facility] Llshexpanr9[address] [place], [place] [address]Dr. Airam Tripathi CO2 [Moles/Vol] 24.8 mmol/L Normal 21.0-32.0 [facility] Comment on above: Performed By: #### C MP ####[facility] [address]bsf[address] [place] [id number]. Airam Tripathi Creatinine [Mass/Vol] 1.46 mg/dL Critically high 0.55-1.02 [facility] Comment on above: Performed By: #### C MP ####[facility] Vzazhavoye[address] [place] [id number]. Airam Tripathi EGFR-AF MALAGASY 44 mL/min/1.73m2 Critically low >=60 [facility] Comment on above: Performed By: #### C MP ####[facility] Pvzdflkouv[address] [place] [id number]. Airam Deuce EGFR-NON AF MALAGASY 37 mL/min/1.73m2 Critically low >=60 [facility] Comment on above: Performed By: #### C MP ####[facility] Gsbqvspyol[address] [place] [address]Dr. Airam Deuce Globulin (S) [Mass/Vol] 3.3 g/dL Normal [facility] Comment on above: Performed By: #### C MP ####[facility] Qwcxmepdyc[address] [place] [id number]. Airam Tripathi Glucose [Mass/Vol] 86 mg/dL Normal 74-106 [facility] Comment on above: Performed By: #### C MP ####[facility] Fuaxjsjsmh[address] [place] [address]Dr. Airam Deuce Potassium [Moles/Vol] 4.8 mmol/L Normal 3.5-5.1 [facility] Comment on above: Performed By: #### C MP ####[facility] Gjdnzskfky[address] [place] [id number]. Airam Deuce Protein [Mass/Vol] 6.6 g/dL Normal 6.4-8.2 [facility] Comment on above: Performed By: #### C MP ####[facility] Jwgeoewknj[address] [place] [id number]. Airam Deuce Sodium [Moles/Vol] 132 mmol/L Critically low 136-145 [facility] Comment on above: Performed By: #### C MP ####[facility] Ewcjqunbdn[address] [place], [place] [address]Dr. Airam Tripathi Urea nitrogen [Mass/Vol] 34.0 mg/dL Critically high 7.0-18.0 [facility] Comment on above: Performed By: #### C MP ####[facility] Kfmfkbdott[address] [place], [place] [address]Dr. Airam Tripathi Urea nitrogen/Creatinine [Mass ratio] 23.3 mg/mg Normal [facility] Comment on above: Performed By: #### C MP ####[facility] Upiplopvwn8[address] [place], [place] [address]Dr. Airam Tripathi OSMOLALITYon 05-06-2022 Osmolality [Osmolality] 284 mosm/kg Normal 275-295 [facility] Comment on above: Performed By: #### O SMO ####[facility] Mledvzelsu[address] [place], [place] [address]Dr. Airam Tripathi XR LSPINE MIN 4 VIEWSon XR LSPINE MIN 4 VIEWS Normal [facility] CBC AUTO DIFFon 05-03-2022 BASO # 0.1 103/ul Normal 0.0-0.1 [facility] Comment on above: Performed By: #### C BC ####[facility] Vvsghcmmab[address] [place], [place] [address]Dr. Airam Deuce Basophils/100 WBC (Bld) 0.6 % Normal 0.2-2.0 [facility] Comment on above: Performed By: #### C BC ####[facility] Zycphdxtos67[address] [place], [place] [address]Dr. Airam Tripathi EO # 0.3 103/ul Normal 0.0-0.7 [facility] Comment on above: Performed By: #### C BC ####[facility] Fklitglxcm5511[address] [place], [place] [address]Dr. Airam Deuce Eosinophils/100 WBC (Bld) 4.2 % Normal 0.9-7.0 [facility] Comment on above: Performed By: #### C BC ####[facility] Zmxtuepppo[address] [place] [address]Dr. Airam Tripathi Erythrocyte distribution width (RBC) [Ratio] 13.4 % Normal 11.0-15.0 [facility] Comment on above: Performed By: #### C BC ####[facility] Bgezljaqsc[address] [place] [address]Dr. Airam Tripathi Hematocrit (Bld) [Volume fraction] 30.7 % Critically low 36.0-48.0 [facility] Comment on above: Performed By: #### C BC ####[facility] Pahknafisd[address] [place], [place] [address]Dr. Airam Tripathi Hemoglobin (Bld) [Mass/Vol] 9.6 g/dL Critically low 12.0-16.0 [facility] Comment on above: Performed By: #### C BC ####[facility] Vmzaynnbwp[address] [place], [place] [address]Dr. Airam Tripathi IG # 0.05 10e3/ul Critically high 0.00-0.03 [facility] Comment on above: Performed By: #### C BC ####[facility] Ndoqmkylxx39[address] [place], [place] [address]Dr. Selenaneil Tripathi IG % 0.6 % Critically high 0.0-0.5 [facility] Comment on above: Performed By: #### C BC ####[facility] Hjlyxhirdg[address] [place], [place] [address]Dr. Airam Tripathi LYMPH # 1.9 103/ul Normal 1.2-3.8 [facility] Comment on above: Performed By: #### C BC ####[facility] Cimxcngmjy1025[address] [place], [place] [address]Dr. Airam Tripathi Lymphocytes/100 WBC (Bld) 23.5 % Normal 20.5-60.0 [facility] Comment on above: Performed By: #### C BC ####[facility] Pvejnqyspt[address] [place], [place] [address]Dr. Selenaneil Tripathi MANUAL DIFF REQ NO Normal [facility] Comment on above: Performed By: #### C BC ####[facility] [address]qvagwnbh[address] [place] [id number]. Airam Tripathi MCH (RBC) [Entitic mass] 30.8 pg Normal 26.7-34.0 [facility] Comment on above: Performed By: #### C BC ####[facility] [address]wuyzdq[address] [place] [address]Dr. Airam Tripathi MCHC (RBC) [Mass/Vol] 31.3 g/dL Normal 29.9-35.2 [facility] Comment on above: Performed By: #### C BC ####[facility] Wujiaqufat204[address] [place], [place] [address]Dr. Airam Tripathi MCV (RBC) [Entitic vol] 98.4 fL Normal 81.0-99.0 [facility] Comment on above: Performed By: #### C BC ####[facility] Ojrjzctivo[address] [place], [place] [address]Dr. Airam Deuce MONO # 0.6 103/ul Normal 0.3-0.8 [facility] Comment on above: Performed By: #### C BC ####[facility] Nktjxlxiju[address] [place], [place] [address]Dr. Airam Deuce Monocytes/100 WBC (Bld) 7.4 % Normal 1.7-12.0 [facility] Comment on above: Performed By: #### C BC ####[facility] Ofjaqvlord[address] [place], [place] [address]Dr. Airam Tripathi NEUT # 5.0 103/ul Normal 1.4-6.5 [facility] Comment on above: Performed By: #### C BC ####[facility] Evnchbnlrw[address] [place], [place] [address]Dr. Airam Deuce Neutrophils/100 WBC (Bld) 63.7 % Normal 43.0-75.0 [facility] Comment on above: Performed By: #### C BC ####[facility] Uluncnfxot9[address] [place], [place] [address]Dr. Airam Deuce Platelet mean volume (Bld) [Entitic vol] 9.5 fL Normal 9.5-13.5 [facility] Comment on above: Performed By: #### C BC ####[facility] [address]emxmre[address] [place] [id number]. Airam Tripathi PLT 280 103/ul Normal 150-450 [facility] Comment on above: Performed By: #### C BC ####[facility] Mlnthdbyeb7[address] [place] [phone]. Airam Tripathi RBC 3.12 106/ul Critically low 4.20-5.40 [facility] Comment on above: Performed By: #### C BC ####[facility] Ph[address]wwojxx7[address] [place] [address]Dr. Airam Tripathi WBC 7.9 103/ul Normal 4.0-11.0 [facility] Comment on above: Performed By: #### C BC ####[facility] Caoufshozd[address] [place] [address]Dr. Airam Tripathi PROF 14(COMP METB)on 022 Albumin [Mass/Vol] 3.1 g/dL Critically low 3.4-5.0 [facility] Comment on above: Performed By: #### C MP ####[facility] Yzsazngagn[address] [place] [address]Dr. Airam Tripathi Albumin/Globulin [Mass ratio] 0.9 {ratio} Normal [facility] Comment on above: Performed By: #### C MP ####[facility] Irzhmpfypb[address] [place] [address]Dr. Airam Tripathi ALP [Catalytic activity/Vol] 140 U/L Critically high 46-116 [facility] Comment on above: Performed By: #### C MP ####[facility] D[address]afiubt[address] [place] [address]Dr. Airam Tripathi ALT [Catalytic activity/Vol] 24 U/L Normal 14-59 [facility] Comment on above: Performed By: #### C MP ####[facility] Cbcttuedbw85[address] [place] [address]Dr. Airam Tripathi Anion gap [Moles/Vol] 11.2 mmol/L Normal [facility] Comment on above: Performed By: #### C MP ####[facility] Sxpncjsajn6[address] [place] [phone]. Airam Tripathi AST [Catalytic activity/Vol] 26 U/L Normal 15-37 [facility] Comment on above: Performed By: #### C MP ####[facility] Ncyronuztu[address] [place] [phone]. Airam Tripathi Bilirubin [Mass/Vol] 0.2 mg/dL Normal 0.2-1.0 [facility] Comment on above: Performed By: #### C MP ####[facility] Ixgygzqtjv[address] [place] [address]Dr. Airam Tripathi Calcium [Mass/Vol] 8.3 mg/dL Critically low 8.5-10.1 [facility] Comment on above: Performed By: #### C MP ####[facility] Nuynyoldro[address] [place], [place] [address]Dr. Airam Tripathi Chloride [Moles/Vol] 101 mmol/L Normal 98-107 [facility] Comment on above: Performed By: #### C MP ####[facility] Vtahcztbpy[address] [place], [place] [address]Dr. Airam Tripathi CO2 [Moles/Vol] 25.5 mmol/L Normal 21.0-32.0 [facility] Comment on above: Performed By: #### C MP ####[facility] Cimwxyeasv22[address] [place] [phone]. Airam Tripathi Creatinine [Mass/Vol] 1.43 mg/dL Critically high 0.55-1.02 [facility] Comment on above: Performed By: #### C MP ####[facility] Jsqmgnjqww[address] [place] [phone]. Airam Tripathi EGFR-AF MALAGASY 45 mL/min/1.73m2 Critically low >=60 [facility] Comment on above: Performed By: #### C MP ####[facility] Mkelsibhks[address] [place] [phone]. Airam Tripathi EGFR-NON AF MALAGASY 37 mL/min/1.73m2 Critically low >=60 [facility] Comment on above: Performed By: #### C MP ####[facility] Jcymbfmesk4[address] [place] [phone]. Airam Tripathi Globulin (S) [Mass/Vol] 3.3 g/dL Normal [facility] Comment on above: Performed By: #### C MP ####[facility] Ykocwvkhhn39[address] [place] [address]Dr. Airam Tripathi Glucose [Mass/Vol] 74 mg/dL Normal 74-106 [facility] Comment on above: Performed By: #### C MP ####[facility] Qffujoslpt6[address] [place] [address]Dr. Airam Tripathi Potassium [Moles/Vol] 4.7 mmol/L Normal 3.5-5.1 [facility] Comment on above: Performed By: #### C MP ####[facility] Oikbesvoyt[address] [place], [place] [address]Dr. Airam Tripathi Protein [Mass/Vol] 6.4 g/dL Normal 6.4-8.2 [facility] Comment on above: Performed By: #### C MP ####[facility] Soxkditzov[address] [place], [place] [address]Dr. Airam Tripathi Sodium [Moles/Vol] 133 mmol/L Critically low 136-145 [facility] Comment on above: Performed By: #### C MP ####[facility] Ihawqdodzd07[address] [place], [place] [address]Dr. Airam Tripathi Urea nitrogen [Mass/Vol] 38.0 mg/dL Critically high 7.0-18.0 [facility] Comment on above: Performed By: #### C MP ####[facility] Ejktnakezu93[address] [place], [place] [address]Dr. Airam Tripathi Urea nitrogen/Creatinine [Mass ratio] 26.6 mg/mg Normal [facility] Comment on above: Performed By: #### C MP ####[facility] Uqwklpazjd[address] [place], [place] [address]Dr. Airam Tripathi OSMOLALITYon 04-29-2022 Osmolality [Osmolality] 292 mosm/kg Normal 275-295 [facility] Comment on above: Performed By: #### O SMO ####[facility] Sadoctqrwl[address] [place] [address]Dr. Airam Tripathi CBC AUTO DIFFon 04-28-2022 BASO # 0.0 103/ul Normal 0.0-0.1 [facility] Comment on above: Performed By: #### C BC ####[facility] Jzuirupivj[address] [place], [place] [address]Dr. Airam Deuce Basophils/100 WBC (Bld) 0.5 % Normal 0.2-2.0 [facility] Comment on above: Performed By: #### C BC ####[facility] Cziajvoxsr473[address] [place], [place] [address]Dr. Airam Deuce EO # 0.2 103/ul Normal 0.0-0.7 [facility] Comment on above: Performed By: #### C BC ####[facility] Vktnezqhfm8410[address] [place], [place] [address]Dr. Selenaneil Tripathi Eosinophils/100 WBC (Bld) 3.4 % Normal 0.9-7.0 [facility] Comment on above: Performed By: #### C BC ####[facility] Lbhbyvcdpx[address] [place], [place] [address]Dr. Airam Tripathi Erythrocyte distribution width (RBC) [Ratio] 13.4 % Normal 11.0-15.0 [facility] Comment on above: Performed By: #### C BC ####[facility] Uhsjksyoam[address] [place], [place] [address]Dr. Airam Tripathi Hematocrit (Bld) [Volume fraction] 31.6 % Critically low 36.0-48.0 [facility] Comment on above: Performed By: #### C BC ####[facility] Wgmuadpism[address] [place], [place] [address]Dr. Selenaneil Tripathi Hemoglobin (Bld) [Mass/Vol] 9.8 g/dL Critically low 12.0-16.0 [facility] Comment on above: Performed By: #### C BC ####[facility] Cxduxfhoqj1732[address] [place], [place] [address]Dr. Airam Tripathi IG # 0.02 10e3/ul Normal 0.00-0.03 [facility] Comment on above: Performed By: #### C BC ####[facility] Hkrkztszoc44[address] [place] [phone]. Airam Tripathi IG % 0.3 % Normal 0.0-0.5 [facility] Comment on above: Performed By: #### C BC ####[facility] Zvbhoqliyr9082 [place] [phone]. Airam Tripathi LYMPH # 1.3 103/ul Normal 1.2-3.8 [facility] Comment on above: Performed By: #### C BC ####[facility] Uqzbfmzfbg0839 [place] [phone]. Airam Deuce Lymphocytes/100 WBC (Bld) 21.7 % Normal 20.5-60.0 [facility] Comment on above: Performed By: #### C BC ####[facility] Aezdabfwsg[address] [place], [place] [address]Dr. Selenaneil Tripathi MANUAL DIFF REQ NO Normal [facility] Comment on above: Performed By: #### C BC ####[facility] Xarsbdxkys[address] [place], [place] [address]Dr. Airam Tripathi MCH (RBC) [Entitic mass] 30.7 pg Normal 26.7-34.0 [facility] Comment on above: Performed By: #### C BC ####[facility] Ewbtssltww[address] [place], [place] [address]Dr. Airam Tripathi MCHC (RBC) [Mass/Vol] 31.0 g/dL Normal 29.9-35.2 [facility] Comment on above: Performed By: #### C BC ####[facility] Rimbitoxkd[address] [place], [place] [address]Dr. Airam Tripathi MCV (RBC) [Entitic vol] 99.1 fL Critically high 81.0-99.0 [facility] Comment on above: Performed By: #### C BC ####[facility] Npfoekirug220[address] [place] [phone]. Airam Deuce MONO # 0.3 103/ul Normal 0.3-0.8 [facility] Comment on above: Performed By: #### C BC ####[facility] Urlezcxtgi9608 [place] [phone]. Airam Tripathi Monocytes/100 WBC (Bld) 5.2 % Normal 1.7-12.0 [facility] Comment on above: Performed By: #### C BC ####[facility] Qfyilxqkof8308 [place] [id number]. Airam Tripathi NEUT # 4.1 103/ul Normal 1.4-6.5 [facility] Comment on above: Performed By: #### C BC ####[facility] Xmvcrleuhj0848 [place] [phone]. Airam Tripathi Neutrophils/100 WBC (Bld) 68.9 % Normal 43.0-75.0 [facility] Comment on above: Performed By: #### C BC ####[facility] Pybjlhyaem45[address] [place] [address]Dr. Airam Tripathi Platelet mean volume (Bld) [Entitic vol] 9.8 fL Normal 9.5-13.5 [facility] Comment on above: Performed By: #### C BC ####[facility] Kcrnmnwygr3[address] [place] [address]Dr. Airam Tripathi PLT 329 103/ul Normal 150-450 [facility] Comment on above: Performed By: #### C BC ####[facility] Uhnlkyeupd07[address] [place] [phone]. Airam Tripathi RBC 3.19 106/ul Critically low 4.20-5.40 [facility] Comment on above: Performed By: #### C BC ####[facility] Ckbeaopmkk[address] [place], [place] [address]Dr. Airam Tripathi WBC 5.9 103/ul Normal 4.0-11.0 [facility] Comment on above: Performed By: #### C BC ####[facility] Rhogmsnwwh[address] [place], [place] [address]Dr. Airam Tripathi PROF 14(COMP METB)on 022 Albumin [Mass/Vol] 2.9 g/dL Critically low 3.4-5.0 [facility] Comment on above: Performed By: #### C MP ####[facility] Lodsrxtmxw8738 [place] [id number]. Airam Tripathi Albumin/Globulin [Mass ratio] 0.9 {ratio} Normal [facility] Comment on above: Performed By: #### C MP ####[facility] Iaclqjobcz0317 [place] [phone]. Airam Deuce ALP [Catalytic activity/Vol] 127 U/L Critically high 46-116 [facility] Comment on above: Performed By: #### C MP ####[facility] Govmpubzbj0374 [place] [phone]. Airam Deuce ALT [Catalytic activity/Vol] 22 U/L Normal 14-59 [facility] Comment on above: Performed By: #### C MP ####[facility] Hgwitmpgyx9721 [place] [address]Dr. Airam Tripathi Anion gap [Moles/Vol] 6.7 mmol/L Normal [facility] Comment on above: Performed By: #### C MP ####[facility] Ajcoykphtd3855 [place] [address]Dr. Airam Deuce AST [Catalytic activity/Vol] 24 U/L Normal 15-37 [facility] Comment on above: Performed By: #### C MP ####[facility] Wikcljerds[address] [place], [place] [address]Dr. Airam Tripathi Bilirubin [Mass/Vol] 0.2 mg/dL Normal 0.2-1.0 [facility] Comment on above: Performed By: #### C MP ####[facility] Botoyxyhhe62[address] [place] [address]Dr. Airam Tripathi Calcium [Mass/Vol] 8.2 mg/dL Critically low 8.5-10.1 [facility] Comment on above: Performed By: #### C MP ####[facility] Xhpcsunmcd1169 [place] [address]Dr. Airam Tripathi Chloride [Moles/Vol] 105 mmol/L Normal 98-107 [facility] Comment on above: Performed By: #### C MP ####[facility] Ihgkgrndrv6909 [place] [phone]. Airam Tripathi CO2 [Moles/Vol] 28.2 mmol/L Normal 21.0-32.0 [facility] Comment on above: Performed By: #### C MP ####[facility] Shqmayksxy0667 [place] [phone]. Airam Tirpathi Creatinine [Mass/Vol] 1.22 mg/dL Critically high 0.55-1.02 [facility] Comment on above: Performed By: #### C MP ####[facility] Dilbygbunz4334 [place] [phone]. Airam Tripathi EGFR-AF MALAGASY 54 mL/min/1.73m2 Critically low >=60 [facility] Comment on above: Performed By: #### C MP ####[facility] Cvyiradpha[address] [place], [place] [address]Dr. Airam Tripathi EGFR-NON AF MALAGASY 45 mL/min/1.73m2 Critically low >=60 [facility] Comment on above: Performed By: #### C MP ####[facility] Xlguwexkdj9051 [place] [address]Dr. Airam Tripathi Globulin (S) [Mass/Vol] 3.2 g/dL Normal [facility] Comment on above: Performed By: #### C MP ####[facility] Irwjcadupb8167 [place] [address]Dr. Airam Tripathi Glucose [Mass/Vol] 77 mg/dL Normal 74-106 [facility] Comment on above: Performed By: #### C MP ####[facility] Quzepgldin0133 [place] [phone]. Airam Tripathi Potassium [Moles/Vol] 4.9 mmol/L Normal 3.5-5.1 [facility] Comment on above: Performed By: #### C MP ####[facility] Naiqgmdwtv4403 [place] [address]Dr. Airam Tripathi Protein [Mass/Vol] 6.1 g/dL Critically low 6.4-8.2 [facility] Comment on above: Performed By: #### C MP ####[facility] Npvwzbkdtn0237 [place] [phone]. Airam Tripathi Sodium [Moles/Vol] 135 mmol/L Critically low 136-145 [facility] Comment on above: Performed By: #### C MP ####[facility] Adtnhjtolb[address] [place], [place] [address]Dr. Airam Tripathi Urea nitrogen [Mass/Vol] 30.0 mg/dL Critically high 7.0-18.0 [facility] Comment on above: Performed By: #### C MP ####[facility] Rfaemqdcsr[address] [place], [place] [address]Dr. Airam Tripathi Urea nitrogen/Creatinine [Mass ratio] 24.6 mg/mg Normal [facility] Comment on above: Performed By: #### C MP ####[facility] Hjeulgmsab7[address] [place], [place] [address]Dr. Airam Tripathi OSMOLALITYon 04-23-2022 Osmolality [Osmolality] 289 mosm/kg Normal 275-295 [facility] Comment on above: Performed By: #### O SMO ####[facility] Sobyvqstky[address] [place], [place] [address]Dr. Airam Tripathi CBC AUTO DIFFon 04-20-2022 BASO # 0.0 103/ul Normal 0.0-0.1 [facility] Comment on above: Performed By: #### C BC ####[facility] Wumlejcfyz69[address] [place] [address]Dr. Airam Deuce Basophils/100 WBC (Bld) 0.4 % Normal 0.2-2.0 [facility] Comment on above: Performed By: #### C BC ####[facility] Taouklfmge74[address] [place] [address]Dr. Airam Tripathi EO # 0.2 103/ul Normal 0.0-0.7 [facility] Comment on above: Performed By: #### C BC ####[facility] Djtmihlqyc[address] [place], [place] [address]Dr. Airam Tripathi Eosinophils/100 WBC (Bld) 3.1 % Normal 0.9-7.0 [facility] Comment on above: Performed By: #### C BC ####[facility] Kusaaydaty[address] [place], [place] [address]Dr. Airam Tripathi Erythrocyte distribution width (RBC) [Ratio] 13.8 % Normal 11.0-15.0 [facility] Comment on above: Performed By: #### C BC ####[facility] Uapvblehtz[address] [place], [place] [address]Dr. Airam Tripathi Hematocrit (Bld) [Volume fraction] 29.5 % Critically low 36.0-48.0 [facility] Comment on above: Performed By: #### C BC ####[facility] Vetbamuqur[address] [place], [place] [address]Dr. Airam Tripathi Hemoglobin (Bld) [Mass/Vol] 9.2 g/dL Critically low 12.0-16.0 [facility] Comment on above: Performed By: #### C BC ####[facility] [address]hqb[address] [place], [place] [address]Dr. Airam Tripathi IG # 0.02 10e3/ul Normal 0.00-0.03 [facility] Comment on above: Performed By: #### C BC ####[facility] Luewufvpqp[address] [place], [place] [address]Dr. Airam Tripathi IG % 0.4 % Normal 0.0-0.5 [facility] Comment on above: Performed By: #### C BC ####[facility] Ewvbktqpyt[address] [place], [place] [address]Dr. Airam Tripathi LYMPH # 0.8 103/ul Critically low 1.2-3.8 [facility] Comment on above: Performed By: #### C BC ####[facility] Agwqbdpade[address] [place], [place] [address]Dr. Airam Tripathi Lymphocytes/100 WBC (Bld) 14.0 % Critically low 20.5-60.0 [facility] Comment on above: Performed By: #### C BC ####[facility] Ulyfnlvnrs5[address] [place], [place] [address]Dr. Airam Tripathi MANUAL DIFF REQ NO Normal [facility] Comment on above: Performed By: #### C BC ####[facility] Bitoharmeh[address] [place] [id number]. Airam Deuce MCH (RBC) [Entitic mass] 30.4 pg Normal 26.7-34.0 [facility] Comment on above: Performed By: #### C BC ####[facility] Xahszuhxsc90[address] [place] [id number]. Airam Deuce MCHC (RBC) [Mass/Vol] 31.2 g/dL Normal 29.9-35.2 [facility] Comment on above: Performed By: #### C BC ####[facility] Ptqafyymcr[address] [place] [address]Dr. iAram Tripathi MCV (RBC) [Entitic vol] 97.4 fL Normal 81.0-99.0 [facility] Comment on above: Performed By: #### C BC ####[facility] Cacpmctfpk[address] [place], [place] [address]Dr. Airam Tripathi MONO # 0.3 103/ul Normal 0.3-0.8 [facility] Comment on above: Performed By: #### C BC ####[facility] Blxncvohgx[address] [place], [place] [address]Dr. Airam Tripathi Monocytes/100 WBC (Bld) 5.6 % Normal 1.7-12.0 [facility] Comment on above: Performed By: #### C BC ####[facility] Lsasfiiled62[address] [place], [place] [address]Dr. Airam Tripathi NEUT # 4.2 103/ul Normal 1.4-6.5 [facility] Comment on above: Performed By: #### C BC ####[facility] Drzcfjeinn16[address] [place], [place] [address]Dr. Airam Tripathi Neutrophils/100 WBC (Bld) 76.5 % Critically high 43.0-75.0 [facility] Comment on above: Performed By: #### C BC ####[facility] Mqzxdoffzi02[address] [place], [place] [address]Dr. Airam Tripathi Platelet mean volume (Bld) [Entitic vol] 9.4 fL Critically low 9.5-13.5 [facility] Comment on above: Performed By: #### C BC ####[facility] Su[address]omymiws[address] [place] [address]Dr. Selenaneil Deuce PLT 250 103/ul Normal 150-450 [facility] Comment on above: Performed By: #### C BC ####[facility] Wfdkxjbnrd1027 [place] [phone]. Selenaneil Tripathi RBC 3.03 106/ul Critically low 4.20-5.40 [facility] Comment on above: Performed By: #### C BC ####[facility] Wmmpgcyehq7267 [place] [phone]. Selenaneil Deuce WBC 5.5 103/ul Normal 4.0-11.0 [facility] Comment on above: Performed By: #### C BC ####[facility] Ihicqbzqwg5693 [place] [address]Dr. Airam Tripahti PROF 14(COMP METB)on 022 Albumin [Mass/Vol] 2.7 g/dL Critically low 3.4-5.0 [facility] Comment on above: Performed By: #### C MP ####[facility] Aeaeqcfrfi7[address] [place], [place] [address]Dr. Airam Tripathi Albumin/Globulin [Mass ratio] 0.9 {ratio} Normal [facility] Comment on above: Performed By: #### C MP ####[facility] Qlfkvfqchg2179 [place] [address]Dr. Airam Tripathi ALP [Catalytic activity/Vol] 113 U/L Normal 46-116 [facility] Comment on above: Performed By: #### C MP ####[facility] Tztrxqpxca6066 [place] [address]Dr. Airam Tripathi ALT [Catalytic activity/Vol] 20 U/L Normal 14-59 [facility] Comment on above: Performed By: #### C MP ####[facility] Yecetaydit5828 [place] [address]Dr. Airam Tripathi Anion gap [Moles/Vol] 11.1 mmol/L Normal [facility] Comment on above: Performed By: #### C MP ####[facility] Nsqjkhckgr6882 [place] [address]Dr. Airam Tripathi AST [Catalytic activity/Vol] 19 U/L Normal 15-37 [facility] Comment on above: Performed By: #### C MP ####[facility] Bdgomsqbne1453 [place] [phone]. Airam Tripathi Bilirubin [Mass/Vol] 0.2 mg/dL Normal 0.2-1.0 [facility] Comment on above: Performed By: #### C MP ####[facility] Yjakwwkjft[address] [place], [place] [address]Dr. Airam Tripathi Calcium [Mass/Vol] 8.3 mg/dL Critically low 8.5-10.1 [facility] Comment on above: Performed By: #### C MP ####[facility] Rzaybclgqz757[address] [place], [place] [address]Dr. Airam Tripathi Chloride [Moles/Vol] 104 mmol/L Normal 98-107 [facility] Comment on above: Performed By: #### C MP ####[facility] Oivougpmgt[address] [place], [place] [address]Dr. Airam Tripathi CO2 [Moles/Vol] 25.3 mmol/L Normal 21.0-32.0 [facility] Comment on above: Performed By: #### C MP ####[facility] Eqpvhtwgyk[address] [place], [place] [address]Dr. Airam Tripathi Creatinine [Mass/Vol] 1.33 mg/dL Critically high 0.55-1.02 [facility] Comment on above: Performed By: #### C MP ####[facility] Zudagqnsnk8[address] [place], [place] [address]Dr. Airam Tripathi EGFR-AF MALAGASY 49 mL/min/1.73m2 Critically low >=60 [facility] Comment on above: Performed By: #### C MP ####[facility] Zlpcperwbs8[address] [place], [place] [address]Dr. Airam Deuce EGFR-NON AF MALAGASY 41 mL/min/1.73m2 Critically low >=60 [facility] Comment on above: Performed By: #### C MP ####[facility] Hkdfqqabit4443 [place] [address]Dr. Airam Tripathi Globulin (S) [Mass/Vol] 3.1 g/dL Normal [facility] Comment on above: Performed By: #### C MP ####[facility] Pvlerzmppk1627 [place] [address]Dr. Airam Tripathi Glucose [Mass/Vol] 88 mg/dL Normal 74-106 [facility] Comment on above: Performed By: #### C MP ####[facility] Onvgydmtzi7253 [place] [address]Dr. Airam Tripathi Potassium [Moles/Vol] 5.4 mmol/L Critically high 3.5-5.1 [facility] Comment on above: Performed By: #### C MP ####[facility] Afmubkroza640[address] [place], [place] [address]Dr. Airam Tripathi Protein [Mass/Vol] 5.8 g/dL Critically low 6.4-8.2 [facility] Comment on above: Performed By: #### C MP ####[facility] Nztqpwowto264[address] [place], [place] [address]Dr. Airam Tripathi Sodium [Moles/Vol] 135 mmol/L Critically low 136-145 [facility] Comment on above: Performed By: #### C MP ####[facility] Ampyjfxbkp774[address] [place], [place] [address]Dr. Airam Tripathi Urea nitrogen [Mass/Vol] 38.0 mg/dL Critically high 7.0-18.0 [facility] Comment on above: Performed By: #### C MP ####[facility] Dqjcblihpz[address] [place], [place] [address]Dr. Airam Tripathi Urea nitrogen/Creatinine [Mass ratio] 28.6 mg/mg Normal [facility] Comment on above: Performed By: #### C MP ####[facility] Brintciiwl[address] [place], [place] [address]Dr. Airam Deuce OSMOLALITYon 04-15-2022 Osmolality [Osmolality] 284 mosm/kg Normal 275-295 [facility] Comment on above: Performed By: #### O SMO ####[facility] Nhhilsqscw4083 [place] [address]Dr. Airam Tripathi CBC AUTO DIFFon 04-14-2022 BASO # 0.0 103/ul Normal 0.0-0.1 [facility] Comment on above: Performed By: #### C BC ####[facility] Qzdtgaklyq3337 [place] [address]Dr. Airam Deuce Basophils/100 WBC (Bld) 0.5 % Normal 0.2-2.0 [facility] Comment on above: Performed By: #### C BC ####[facility] Xiqalzckiv936[address] [place], [place] [address]Dr. Airam Tripathi EO # 0.3 103/ul Normal 0.0-0.7 [facility] Comment on above: Performed By: #### C BC ####[facility] Pebduccznl[address] [place], [place] [address]Dr. Selenaneil Tripathi Eosinophils/100 WBC (Bld) 3.6 % Normal 0.9-7.0 [facility] Comment on above: Performed By: #### C BC ####[facility] Ccfmuwqard[address] [place], [place] [address]Dr. Airam Tripathi Erythrocyte distribution width (RBC) [Ratio] 13.4 % Normal 11.0-15.0 [facility] Comment on above: Performed By: #### C BC ####[facility] Zptmgburfp6536[address] [place], [place] [address]Dr. Airam Tripathi Hematocrit (Bld) [Volume fraction] 30.6 % Critically low 36.0-48.0 [facility] Comment on above: Performed By: #### C BC ####[facility] Pdvbyvitom927[address] [place], [place] [address]Dr. Airam Tripathi Hemoglobin (Bld) [Mass/Vol] 9.7 g/dL Critically low 12.0-16.0 [facility] Comment on above: Performed By: #### C BC ####[facility] Hrshsoiptk9[address] [place], [place] [address]Dr. Airam Tripathi IG # 0.08 10e3/ul Critically high 0.00-0.03 [facility] Comment on above: Performed By: #### C BC ####[facility] Adedfjvnhh9997 [place] [address]DrKianna Airam Tripathi IG % 0.9 % Critically high 0.0-0.5 [facility] Comment on above: Performed By: #### C BC ####[facility] Ppbfeqjgjq[address] [place], [place] [address]DrKianna Airam Deuce LYMPH # 2.1 103/ul Normal 1.2-3.8 [facility] Comment on above: Performed By: #### C BC ####[facility] Ieebvtonzs[address] [place], [place] [address]DrKianna Selenaneil Tripathi Lymphocytes/100 WBC (Bld) 24.2 % Normal 20.5-60.0 [facility] Comment on above: Performed By: #### C BC ####[facility] Krnkydrixa[address] [place], [place] [address]DrKianna Selenaneil Tripathi MANUAL DIFF REQ NO Normal [facility] Comment on above: Performed By: #### C BC ####[facility] Bytkttppnl[address] [place], [place] [address]DrKianna Airam Deuce MCH (RBC) [Entitic mass] 30.4 pg Normal 26.7-34.0 [facility] Comment on above: Performed By: #### C BC ####[facility] Homqojxomn[address] [place], [place] [address]DrKianna Airam Deuce MCHC (RBC) [Mass/Vol] 31.7 g/dL Normal 29.9-35.2 [facility] Comment on above: Performed By: #### C BC ####[facility] Cxjokgevrh[address] [place], [place] [address]DrKianna Airam Deuce MCV (RBC) [Entitic vol] 95.9 fL Normal 81.0-99.0 [facility] Comment on above: Performed By: #### C BC ####[facility] Dutjiqbegv[address] [place], [place] [address]DrKianna Tripathi MONO # 0.5 103/ul Normal 0.3-0.8 [facility] Comment on above: Performed By: #### C BC ####[facility] Sfqlruqvze2424 [place] [id number]. Airam Tripathi Monocytes/100 WBC (Bld) 6.0 % Normal 1.7-12.0 [facility] Comment on above: Performed By: #### C BC ####[facility] Cxucwpayqc5470 [place] [phone]. Airam Tripathi NEUT # 5.6 103/ul Normal 1.4-6.5 [facility] Comment on above: Performed By: #### C BC ####[facility] Dssnbbhhmy5328 [place] [address]Dr. Airam Tripathi Neutrophils/100 WBC (Bld) 64.8 % Normal 43.0-75.0 [facility] Comment on above: Performed By: #### C BC ####[facility] Lltggabqxd9835 [place] [address]Dr. Airam Tripathi Platelet mean volume (Bld) [Entitic vol] 9.2 fL Critically low 9.5-13.5 [facility] Comment on above: Performed By: #### C BC ####[facility] Bjugwuikvb8622 [place] [address]Dr. Airam Tripathi PLT 296 103/ul Normal 150-450 [facility] Comment on above: Performed By: #### C BC ####[facility] Ohyhsilayb9609 [place] [phone]. Airam Tripathi RBC 3.19 106/ul Critically low 4.20-5.40 [facility] Comment on above: Performed By: #### C BC ####[facility] Ldddnhxkic9193 [place] [phone]. Airam Tripathi WBC 8.6 103/ul Normal 4.0-11.0 [facility] Comment on above: Performed By: #### C BC ####[facility] Dejitcvekh4655 [place] [address]Dr. Airam Tripathi PROF 14(COMP METB)on 04-14- 022 Albumin [Mass/Vol] 3.2 g/dL Critically low 3.4-5.0 [facility] Comment on above: Performed By: #### C MP ####[facility] Biyanxaybj5459 [place] [address]Dr. Airam Tripathi Albumin/Globulin [Mass ratio] 1.0 {ratio} Normal [facility] Comment on above: Performed By: #### C MP ####[facility] Eojpyctjsd3745 [place] [address]Dr. Selenaneil Deuce ALP [Catalytic activity/Vol] 126 U/L Critically high 46-116 [facility] Comment on above: Performed By: #### C MP ####[facility] Tmoeifurrb[address] [place], [place] [address]Dr. Airam Tripathi ALT [Catalytic activity/Vol] 27 U/L Normal 14-59 [facility] Comment on above: Performed By: #### C MP ####[facility] Zbknqqwcdq125[address] [place], [place] [address]Dr. Airam Tripathi Anion gap [Moles/Vol] 9.6 mmol/L Normal [facility] Comment on above: Performed By: #### C MP ####[facility] Dcjqubhpeh75[address] [place], [place] [address]Dr. Airam Tripathi AST [Catalytic activity/Vol] 25 U/L Normal 15-37 [facility] Comment on above: Performed By: #### C MP ####[facility] Afisozmpaf77[address] [place], [place] [address]Dr. Airam Tripathi Bilirubin [Mass/Vol] 0.3 mg/dL Normal 0.2-1.0 [facility] Comment on above: Performed By: #### C MP ####[facility] Cgicsioxea[address] [place], [place] [address]Dr. Airam Tripathi Calcium [Mass/Vol] 8.1 mg/dL Critically low 8.5-10.1 [facility] Comment on above: Performed By: #### C MP ####[facility] Tvkugnzyra9[address] [place], [place] [address]Dr. Airam Tripathi Chloride [Moles/Vol] 100 mmol/L Normal 98-107 [facility] Comment on above: Performed By: #### C MP ####[facility] Riuamjwwmq5534 [place] [phone]. Airam Tripathi CO2 [Moles/Vol] 26.5 mmol/L Normal 21.0-32.0 [facility] Comment on above: Performed By: #### C MP ####[facility] Frvegdssqo9246 [place] [phone]. Airam Tripathi Creatinine [Mass/Vol] 1.52 mg/dL Critically high 0.55-1.02 [facility] Comment on above: Performed By: #### C MP ####[facility] Diarhdjuyv4861 [place] [address]Dr. Airam Tripathi EGFR-AF MALAGASY 42 mL/min/1.73m2 Critically low >=60 [facility] Comment on above: Performed By: #### C MP ####[facility] Twopmgclni9952 [place] [address]Dr. Airam Tripathi EGFR-NON AF MALAGASY 35 mL/min/1.73m2 Critically low >=60 [facility] Comment on above: Performed By: #### C MP ####[facility] Lxwifbdepz7091 [place] [address]Dr. Airam Tripathi Globulin (S) [Mass/Vol] 3.3 g/dL Normal [facility] Comment on above: Performed By: #### C MP ####[facility] Cmfmgmapfa6605 [place] [address]Dr. Airam Tripathi Glucose [Mass/Vol] 75 mg/dL Normal 74-106 [facility] Comment on above: Performed By: #### C MP ####[facility] Ehxjsvhnoy3590 [place] [phone]. Airam Tripathi Potassium [Moles/Vol] 4.1 mmol/L Normal 3.5-5.1 [facility] Comment on above: Performed By: #### C MP ####[facility] Jjqvpkpqyn[address] [place], [place] [address]Dr. Airam Tripathi Protein [Mass/Vol] 6.5 g/dL Normal 6.4-8.2 [facility] Comment on above: Performed By: #### C MP ####[facility] Mayyvmlndq2174 [place] [address]Dr. Airam Tripathi Sodium [Moles/Vol] 132 mmol/L Critically low 136-145 [facility] Comment on above: Performed By: #### C MP ####[facility] Itrduqoqpf2400 [place] [address]Dr. Airam Tripathi Urea nitrogen [Mass/Vol] 40.0 mg/dL Critically high 7.0-18.0 [facility] Comment on above: Performed By: #### C MP ####[facility] Fcrrixupfp[address] [place], [place] [address]Dr. Airam Tripathi Urea nitrogen/Creatinine [Mass ratio] 26.3 mg/mg Normal [facility] Comment on above: Performed By: #### C MP ####[facility] Nctebvcxsz235[address] [place], [place] [address]Dr. Airam Tripathi OSMOLALITYon 04-10-2022 Osmolality [Osmolality] 280 mosm/kg Normal 275-295 [facility] Comment on above: Performed By: #### O SMO ####[facility] Rhomispqip[address] [place], [place] [address]Dr. Airam Tripathi PTH INTACTon 04-09-2022 PTH, Intact 89 pg/mL Critically high 15-65 [facility] Comment on above: Performed By: #### P THINT ####[facility] Jqlqqfqatj[address] [place], [place] [address]Dr. Airam Tripathi CBC W MANUAL DIFFon 04-08-20 22 ATYPICAL LYMPH # Normal [facility] Comment on above: Performed By: #### C BCMAN ####[facility] Dhlyeqibpr14[address] [place], [place] [address]Dr. Airam Tripathi ATYPICAL LYMPH % Normal [facility] Comment on above: Performed By: #### C BCMAN ####[facility] Fkmhiyexvj3498 [place] [address]Dr. Airam Tripathi BAND # Normal 0.0-0.3 [facility] Comment on above: Performed By: #### C BCMAN ####[facility] Dtnktkruvj5109 [place] [phone]. Yilan Tripathi BAND % Normal 0-5 [facility] Comment on above: Performed By: #### C CHRISTEN ####[facility] Wavfagcrkd5660 [place] [address]Dr. Airam Tripathi BASOM # 0.00 103/ul Normal 0.00-0.10 [facility] Comment on above: Performed By: #### C CHRISTEN ####[facility] Isgsqjgzvm5050 [place] [address]Dr. Yineil Tripathi BASOM % 0.0 % Critically low 0.2-2.0 [facility] Comment on above: Performed By: #### C BCGERALDINE ####[facility] Woslpgnuda[address] [place], [place] [address]Dr. Yineil Tripathi BLAST # Normal [facility] Comment on above: Performed By: #### C CHRISTEN ####[facility] Rqzsurzmzr[address] [place], [place] [address]Dr. Yilan Tripathi BLAST % Normal [facility] Comment on above: Performed By: #### C CHRISTEN ####[facility] Fxfrptclyz[address] [place], [place] [address]Dr. Airam Tripathi CORRECTED WBC Normal 4.0-11.0 [facility] Comment on above: Performed By: #### C CHRISTEN ####[facility] Wjfykdfvyj[address] [place], [place] [address]Dr. Airam Tripathi EOS # 0.00 103/ul Normal 0.00-0.70 [facility] Comment on above: Performed By: #### C CHRISTEN ####[facility] Lgnwyshrob7999 [place] [address]Dr. Airam Tripathi EOS% 0.0 % Critically low 0.9-7.0 [facility] Comment on above: Performed By: #### C CHRISTEN ####[facility] Aoafsdwzzh0108 [place] [address]Dr. Airam Tripathi HCT 29.7 % Critically low 36.0-48.0 [facility] Comment on above: Performed By: #### C CHRISTEN ####[facility] Syhalurlnn2667 [place], [place] [address]Sq. Airam Tripathi HGB 9.5 g/dl Critically low 12.0-16.0 [facility] Comment on above: Performed By: #### C CHRISTEN ####[facility] Kqqlvalatg0251 [place], [place] [address]Yi. Airam Tripathi LYMPHM # 0.42 103/ul Critically low 1.20-3.80 [facility] Comment on above: Performed By: #### C CHRISTEN ####[facility] Kfxejscmvd1391 [place], [place] [address]Ht. Airam Tripathi LYMPHM% 7.0 % Critically low 20.5-60.0 [facility] Comment on above: Performed By: #### Jodee VELÁSQUEZ ####[facility] Zauxtwxxoi8734 [place] [phone]. Airam Tripathi MCH 30.9 pg Normal 26.7-34.0 [facility] Comment on above: Performed By: #### Jodee VELÁSQUEZ ####[facility] Ytaqhiusdv0263 [place] [phone]. Airam Tripathi MCHC 32.0 g/dl Normal 29.9-35.2 [facility] Comment on above: Performed By: #### Jodee VELÁSQUEZ ####[facility] Exgkjtohbo6772 [place], [place] [address]Wu. Airam Tripathi MCV 96.7 fL Normal 81.0-99.0 [facility] Comment on above: Performed By: #### Jodee VELÁSQUEZ ####[facility] Yyburszgpr8344 [place], [place] [address]Rw. Airam Tripathi METAMYELOCYTE # Normal [facility] Comment on above: Performed By: #### Jodee VELÁSQUEZ ####[facility] Treniufwpg1899 [place], [place] [address]Xm. Airam Tripathi METAMYELOCYTE % Normal [facility] Comment on above: Performed By: #### Jodee VELÁSQUEZ ####[facility] Sxycebeayd8277 [place] [phone]. Airam Tripathi MONOM# 0.36 103/ul Normal 0.30-0.80 [facility] Comment on above: Performed By: #### C CHRISTEN ####[facility] Fwphrjocce0118 [place] [phone]. Airam Tripathi MONOM% 6.0 % Normal 1.7-12.0 [facility] Comment on above: Performed By: #### C CHRISTEN ####[facility] Inxkmkbmkt3289 [place] [phone]. Airam Tripathi MPV 9.5 fL Normal 9.5-13.5 [facility] Comment on above: Performed By: #### C BCGERALDINE ####[facility] Nprdzptxgt8508 [place] [phone]. Airam Tripathi MYELOCYTE # Normal [facility] Comment on above: Performed By: #### C CHRISTEN ####[facility] Angczwjzzd1808 [place] [phone]. Airam Deuce MYELOCYTE % Normal [facility] Comment on above: Performed By: #### C CHRISTEN ####[facility] Dtcaamcxnq0263 [place] [address]Dr. Airam Tripathi NRBC Normal [facility] Comment on above: Performed By: #### C CHRISTEN ####[facility] Ooopgxrokm7053 [place] [phone]. Airam Tripathi PLT 185 103/ul Normal 150-450 [facility] Comment on above: Performed By: #### C CHRISTEN ####[facility] Jhpyjkpnse7189 [place] [phone]. Airam Tripathi RBC 3.07 106/ul Critically low 4.20-5.40 [facility] Comment on above: Performed By: #### C CHRISTEN ####[facility] Jsrwdtqnxq2149 [place] [phone]. Airam Tripathi RDW 13.6 % Normal 11.0-15.0 [facility] Comment on above: Performed By: #### C CHRISTEN ####[facility] Mvaaosowyi2777 [place] [phone]. Selenaneil Tripathi SEG # 5.22 103/ul Normal 1.40-6.50 [facility] Comment on above: Performed By: #### C CHRISTEN ####[facility] Blkyxmugwg1850 [place] [address]Dr. Airam Tripathi SEG % 87.0 % Critically high 43.0-75.0 [facility] Comment on above: Performed By: #### C CHRISTEN ####[facility] Gftmgdpozt7637 [place] [address]Dr. Airam Tripathi WBC 6.0 103/ul Normal 4.0-11.0 [facility] Comment on above: Performed By: #### C CHRISTEN ####[facility] Lyhzintnyj4391 [place] [address]Dr. Airam Deuce FREE THYROXINE INDEX T7on FTI 1.57 Normal 1.30-4.50 [facility] Comment on above: Performed By: #### T 7, TSH, CMP ####[facility] Vbezirxwjf[address] [place], [place] [address]Dr. Airam Deuce T3U 32.0 % Normal 30.0-39.0 [facility] Comment on above: Performed By: #### T 7, TSH, CMP ####[facility] Wbwcjgvwey[address] [place], [place] [address]Dr. Airam Deuce T4 [Mass/Vol] 4.90 ug/dL Normal 4.80-13.90 [facility] Comment on above: Performed By: #### T 7, TSH, CMP ####[facility] [address]yp[address]qr[address] [place] [address]DrKianna Selenaneil Tripathi PROF 14(COMP METB)on 022 Albumin [Mass/Vol] 3.0 g/dL Critically low 3.4-5.0 e [facility] Comment on above: Performed By: #### T 7, TSH, CMP ####[facility] Oasgvqiwlm04[address] [place] [address]Dr. Selenaneil Tripathi Albumin/Globulin [Mass ratio] 1.0 {ratio} Normal [facility] Comment on above: Performed By: #### T 7, TSH, CMP ####[facility] Motactaruw2956 [place] [id number]. Airam Tripathi ALP [Catalytic activity/Vol] 106 U/L Normal 46-116 [facility] Comment on above: Performed By: #### T 7, TSH, CMP ####[facility] Xoahfpwgxx[address] [place], [place] [address]Dr. Airam Tripathi ALT [Catalytic activity/Vol] 20 U/L Normal 14-59 [facility] Comment on above: Performed By: #### T 7, TSH, CMP ####[facility] Ebedbkisuj430[address] [place], [place] [address]Dr. Airam Tripathi Anion gap [Moles/Vol] 10.8 mmol/L Normal [facility] Comment on above: Performed By: #### T 7, TSH, CMP ####[facility] Qiowtsupxw910[address] [place], [place] [address]Dr. Airam Tripathi AST [Catalytic activity/Vol] 19 U/L Normal 15-37 [facility] Comment on above: Performed By: #### T 7, TSH, CMP ####[facility] Fmreookqtw096[address] [place], [place] [address]Dr. Selenaneil Tripathi Bilirubin [Mass/Vol] 0.3 mg/dL Normal 0.2-1.0 [facility] Comment on above: Performed By: #### T 7, TSH, CMP ####[facility] Fewcowxjlx89[address] [place], [place] [address]Dr. Airam Tripathi Calcium [Mass/Vol] 8.0 mg/dL Critically low 8.5-10.1 [facility] Comment on above: Performed By: #### T 7, TSH, CMP ####[facility] Mlpsvrvymv14[address] [place], [place] [address]Dr. Airam Tripathi Chloride [Moles/Vol] 100 mmol/L Normal 98-107 [facility] Comment on above: Performed By: #### T 7, TSH, CMP ####[facility] Gsniceezim77[address] [place], [place] [address]Dr. Selenaneil Tripathi CO2 [Moles/Vol] 24.3 mmol/L Normal 21.0-32.0 [facility] Comment on above: Performed By: #### T 7, TSH, CMP ####[facility] Kfamboduuj[address]39 [place] [address]Dr. Airam Tripathi Creatinine [Mass/Vol] 1.12 mg/dL Critically high 0.55-1.02 [facility] Comment on above: Performed By: #### T 7, TSH, CMP ####[facility] Pwipmmjpdc7[address] [place], [place] [address]Dr. Airam Deuce EGFR-AF MALAGASY 60 mL/min/1.73m2 Normal >=60 [facility] Comment on above: Performed By: #### T 7, TSH, CMP ####[facility] Ocqbbytfvx[address] [place], [place] [address]Dr. Selenaneil Tripathi EGFR-NON AF MALAGASY 50 mL/min/1.73m2 Critically low >=60 [facility] Comment on above: Performed By: #### T 7, TSH, CMP ####[facility] Jcnwgoitbt633[address] [place], [place] [address]Dr. Airam Deuce Globulin (S) [Mass/Vol] 3.0 g/dL Normal [facility] Comment on above: Performed By: #### T 7, TSH, CMP ####[facility] Xsyivhpmay100[address] [place], [place] [address]Dr. Airam Deuce Glucose [Mass/Vol] 76 mg/dL Normal 74-106 [facility] Comment on above: Performed By: #### T 7, TSH, CMP ####[facility] Vkchejgjnw211[address] [place], [place] [address]Dr. Selenaneil Tripathi Potassium [Moles/Vol] 4.1 mmol/L Normal 3.5-5.1 [facility] Comment on above: Performed By: #### T 7, TSH, CMP ####[facility] Mznyuqvfth74[address] [place], [place] [address]Dr. Selenaneil Tripathi Protein [Mass/Vol] 6.0 g/dL Critically low 6.4-8.2 [facility] Comment on above: Performed By: #### T 7, TSH, CMP ####[facility] Gizfvuqmih437[address] [place], [place] [address]Dr. Airam Tripathi Sodium [Moles/Vol] 131 mmol/L Critically low 136-145 Th e [facility] Comment on above: Performed By: #### T 7, TSH, CMP ####[facility] Koqwvqkuqq258[address] [place], [place] [address]Dr. Airam Tripathi Urea nitrogen [Mass/Vol] 32.0 mg/dL Critically high 7.0-18.0 [facility] Comment on above: Performed By: #### T 7, TSH, CMP ####[facility] Tiqbavikol[address] [place], [place] [address]Dr. Airam Tripathi Urea nitrogen/Creatinine [Mass ratio] 28.6 mg/mg Normal [facility] Comment on above: Performed By: #### T 7, TSH, CMP ####[facility] Agjmidgmaq517[address] [place], [place] [address]Dr. Airam Tripathi TSHon 04-08-2022 TSH 0.027 uIU/mL Critically low 0.358-3.74 0 [facility] Comment on above: Performed By: #### T 7, TSH, CMP ####[facility] Uldhwmhnmt7[address] [place], [place] [address]Dr. Airam Tripathi UA RANDOMon 04-08-2022 Bilirubin Ql (U) Negative Normal NEGATIVE [facility] Comment on above: Performed By: #### U A ####[facility] Qgajwxxfea1023 [place] [address]Dr. Airam Tripathi Clarity (U) CLEAR Normal CLEAR [facility] Comment on above: Performed By: #### U A ####[facility] Opyqxtaqdn6[address] [place], [place] [address]Dr. Airam Tripathi Color (U) LT. YELLOW Normal YELLOW [facility] Comment on above: Performed By: #### U A ####[facility] Ueogvopqeh[address] [place], [place] [address]Dr. Airam Tripathi Glucose Ql (U) Negative Normal NEGATIVE [facility] Comment on above: Performed By: #### U A ####[facility] Oivtfoopba7[address] [place], [place] [address]Dr. Airam Tripathi Hemoglobin Ql (U) Negative Normal NEGATIVE [facility] Comment on above: Performed By: #### U A ####[facility] Ehwphrouyp76[address] [place], [place] [address]Dr. Airam Tripathi Ketones Ql (U) Negative Normal NEGATIVE [facility] Comment on above: Performed By: #### U A ####[facility] Lpyibjrbvx[address] [place], [place] [address]Dr. Airam Tripathi LEUKOCYTES Negative Normal NEGATIVE [facility] Comment on above: Performed By: #### U A ####[facility] Ddwoyrnjbj0100[address] [place], [place] [address]Dr. Airam Tripathi Nitrite Ql (U) Negative Normal NEGATIVE [facility] Comment on above: Performed By: #### U A ####[facility] Qrzvwltydj140[address] [place], [place] [address]Dr. Airam Tripathi pH (U) 6.0 [pH] Normal 5-9 [facility] Comment on above: Performed By: #### U A ####[facility] Dkzmmweqkh37[address] [place], [place] [address]Dr. Airam Tripathi SPEC GRAVITY 1.010 Normal 1.005-<=1. 025 [facility] Comment on above: Performed By: #### U A ####[facility] Xnptjoubre5315[address] [place], [place] [address]Dr. Airam Tripathi UA PROTEIN Negative Normal NEGATIVE/ TRACE [facility] Comment on above: Performed By: #### U A ####[facility] Rkelbkrxvt4740[address] [place], [place] [address]Dr. Airam Tripathi Urobilinogen Qn (U) 0.2 {Ligia'U}/dL Normal 0.2 - 1. 0 [facility] Comment on above: Performed By: #### U A ####[facility] Tcfunnybmp7438[address] [place], [place] [address]Dr. Airam Tripathi URINE T PROTEIN CREAT RATIOo n 04-08-2022 UR PROT CREAT RAT 0.32 Normal [facility] Comment on above: Performed By: #### U RTPCR ####[facility] Zpnxsfxjls9[address] [place], [place] [address]Dr. Airam Tripathi UR TOTAL PROTEIN <6.0 Normal <=12.0 [facility] Comment on above: Performed By: #### U RTPCR ####[facility] Itfzgeajgn530[address] [place], [place] [address]Dr. Airam Tripathi URINE CREAT 18.75 mg/dL Critically low 20.00-300. 00 [facility] Comment on above: Performed By: #### U RTPCR ####[facility] Cgvbfdjdrr69[address] [place], [place] [address]Dr. Airam Tripathi FERRITINon 04-06-2022 Ferritin [Mass/Vol] 99.0 ng/mL Normal 8.0-252.0 [facility] Comment on above: Performed By: #### F ETIBC, VITAD, FERR ####[facility] Rnyvowcemn033[address] [place], [place] [address]Dr. Airam Tripathi IRON AND TIBCon 04-06-2022 % SATURATION 15.4 % Normal [facility] Comment on above: Performed By: #### F ETIBC, VITAD, FERR ####[facility] Uhixwnoguo501[address] [place], [place] [address]Dr. Airam Tripathi Iron [Mass/Vol] 43.0 ug/dL Critically low 50.0-170.0 [facility] Comment on above: Performed By: #### F ETIBC, VITAD, FERR ####[facility] Hetwdbobaf8[address] [place], [place] [address]Dr. Airam Tripathi TIBC DIRECT 280.0 ug/dL Normal 250.0-450. 0 [facility] Comment on above: Performed By: #### F ETIBC, VITAD, FERR ####[facility] Priyarbxao8534[address] [place], [place] [address]Dr. Selenaneil Tripathi PROF 14(COMP METB)on 022 Albumin [Mass/Vol] 3.2 g/dL Critically low 3.4-5.0 Th e [facility] Comment on above: Performed By: #### C MP, URIC ####[facility] Wdfffytxih8840[address] [place], [place] [address]Dr. Airam Tripathi Albumin/Globulin [Mass ratio] 1.0 {ratio} Normal [facility] Comment on above: Performed By: #### C MP, URIC ####[facility] Znnfxikvmn7751 [place] [address]Dr. Airam Tripathi ALP [Catalytic activity/Vol] 118 U/L Critically high 46-116 [facility] Comment on above: Performed By: #### C MP, URIC ####[facility] Ercvakulwk1785 [place] [address]Dr. Airam Tripathi ALT [Catalytic activity/Vol] 24 U/L Normal 14-59 [facility] Comment on above: Performed By: #### C MP, URIC ####[facility] Tmoiheghxo96[address] [place], [place] [address]Dr. Airam Tripathi Anion gap [Moles/Vol] 14.4 mmol/L Normal [facility] Comment on above: Performed By: #### C MP, URIC ####[facility] Gepxjgkewh196[address] [place], [place] [address]Dr. Airam Tripathi AST [Catalytic activity/Vol] 21 U/L Normal 15-37 [facility] Comment on above: Performed By: #### C MP, URIC ####[facility] Dguhwcyrpo30[address] [place], [place] [address]Dr. Airam Tripathi Bilirubin [Mass/Vol] 0.3 mg/dL Normal 0.2-1.0 [facility] Comment on above: Performed By: #### C MP, URIC ####[facility] Maqpupbuzb[address]25[address] [place], [place] [address]Dr. Airam Tripathi Calcium [Mass/Vol] 8.0 mg/dL Critically low 8.5-10.1 [facility] Comment on above: Performed By: #### C MP, URIC ####[facility] Muribjcefm[address] [place], [place] [address]Dr. Airam Tripathi Chloride [Moles/Vol] 98 mmol/L Normal 98-107 [facility] Comment on above: Performed By: #### C MP, URIC ####[facility] Rzkbfoehnh806[address] [place], [place] [address]Dr. Airma Tripathi CO2 [Moles/Vol] 22.0 mmol/L Normal 21.0-32.0 [facility] Comment on above: Performed By: #### C MP, URIC ####[facility] Bthxajwzsg4196 [place] [address]Dr. Airam Tripathi Creatinine [Mass/Vol] 1.86 mg/dL Critically high 0.55-1.02 [facility] Comment on above: Performed By: #### C MP, URIC ####[facility] Ehuxblaukx270[address] [place], [place] [address]Dr. Airam Tripathi EGFR-AF MALAGASY 33 mL/min/1.73m2 Critically low >=60 [facility] Comment on above: Performed By: #### C MP, URIC ####[facility] Zrfmsmggqf9[address] [place], [place] [address]Dr. Airam Tripathi EGFR-NON AF MALAGASY 28 mL/min/1.73m2 Critically low >=60 [facility] Comment on above: Performed By: #### C MP, URIC ####[facility] Edapcuzniu69[address] [place], [place] [address]Dr. Airam Tripathi Globulin (S) [Mass/Vol] 3.1 g/dL Normal [facility] Comment on above: Performed By: #### C MP, URIC ####[facility] Vozknqxxhm964[address] [place], [place] [address]Dr. Airam Tripathi Glucose [Mass/Vol] 93 mg/dL Normal 74-106 [facility] Comment on above: Performed By: #### C MP, URIC ####[facility] Dfgvrtdlhp232[address] [place], [place] [address]Dr. Airam Tripathi Potassium [Moles/Vol] 4.4 mmol/L Normal 3.5-5.1 [facility] Comment on above: Performed By: #### C MP, URIC ####[facility] Cczlmqyzeb[address] [place], [place] [address]Dr. Airam Tripathi Protein [Mass/Vol] 6.3 g/dL Critically low 6.4-8.2 [facility] Comment on above: Performed By: #### C MP, URIC ####[facility] Hyumesmjei7[address] [place] [address]Dr. Airam Tripathi Sodium [Moles/Vol] 130 mmol/L Critically low 136-145 [facility] Comment on above: Performed By: #### C MP, URIC ####[facility] Ouuguybusp9569 [place] [address]Dr. Airam Tripathi Urea nitrogen [Mass/Vol] 49.0 mg/dL Critically high 7.0-18.0 [facility] Comment on above: Performed By: #### C MP, URIC ####[facility] Nhukoqyjgc2049 [place] [address]Dr. Airam Tripathi Urea nitrogen/Creatinine [Mass ratio] 26.3 mg/mg Normal [facility] Comment on above: Performed By: #### C MP, URIC ####[facility] Tpzxzvcjqy22[address] [place], [place] [address]Dr. Airam Tripathi URIC ACID SERUMon 04-06-2022 Urate [Mass/Vol] 6.5 mg/dL Critically high 2.6-6.0 [facility] Comment on above: Performed By: #### C MP, URIC ####[facility] Biqpkugsbl9[address] [place], [place] [address]Dr. Airam Tripathi VITAMIN D 25 OHon 04-06-2022 VIT D 25-OH 74.5 ng/mL Normal [facility] Comment on above: Performed By: #### F ETIBC, VITAD, FERR ####[facility] Rvnfcjgoad9541 [place] [address]Dr. Airam Tripathi VIT D RANGES SEE BELOW Normal [facility] Comment on above: Result Comment: <20 ng/mL Vit D deficient 20 - <30 ng/mL Vit D insufficient 30 - 100 ng/mL Vit D sufficient >100 ng/mL Potential Toxicity Performed By: #### F ETIBC, VITAD, FERR ####[facility] Ogfvarbhia412[address] [place], [place] [address]Dr. Airam Tripathi OSMOLALITYon 04-01-2022 Osmolality [Osmolality] 284 mosm/kg Normal 275-295 [facility] Comment on above: Performed By: #### O SMO ####[facility] Soupkmxikt8[address] [place] [id number]. Airam Tripathi CBC AUTO DIFFon 03-31-2022 BASO # 0.0 103/ul Normal 0.0-0.1 [facility] Comment on above: Performed By: #### C BC ####[facility] Othltdaatt[address] [place], [place] [address]Dr. Selenaneil Tripathi Basophils/100 WBC (Bld) 0.3 % Normal 0.2-2.0 [facility] Comment on above: Performed By: #### C BC ####[facility] Bmuaatdeae64[address] [place], [place] [address]Dr. Selenaneil Tripathi EO # 0.1 103/ul Normal 0.0-0.7 [facility] Comment on above: Performed By: #### C BC ####[facility] Kpnpjuvyaj210[address] [place], [place] [address]Dr. Airam Tripathi Eosinophils/100 WBC (Bld) 2.0 % Normal 0.9-7.0 [facility] Comment on above: Performed By: #### C BC ####[facility] Csupelaipl[address] [place], [place] [address]Dr. Selenaneil Tripathi Erythrocyte distribution width (RBC) [Ratio] 13.5 % Normal 11.0-15.0 [facility] Comment on above: Performed By: #### C BC ####[facility] Zwcnlgdtkb[address] [place], [place] [address]Dr. Airam Tripathi Hematocrit (Bld) [Volume fraction] 32.5 % Critically low 36.0-48.0 [facility] Comment on above: Performed By: #### C BC ####[facility] Vutbbbjwig[address] [place], [place] [address]Dr. Airam Tripathi Hemoglobin (Bld) [Mass/Vol] 10.1 g/dL Critically low 12.0-16.0 [facility] Comment on above: Performed By: #### C BC ####[facility] Hhupwmueat[address] [place], [place] [address]Dr. Airam Tripathi IG # 0.03 10e3/ul Normal 0.00-0.03 [facility] Comment on above: Performed By: #### C BC ####[facility] Pnlyajpiqg7761 [place] [id number]. Airam Tripathi IG % 0.4 % Normal 0.0-0.5 [facility] Comment on above: Performed By: #### C BC ####[facility] Veopzjmhro9121 [place] [id number]. Airam Tripathi LYMPH # 1.6 103/ul Normal 1.2-3.8 [facility] Comment on above: Performed By: #### C BC ####[facility] Odijpjrgmx2274 [place] [address]Dr. Airam Deuce Lymphocytes/100 WBC (Bld) 22.6 % Normal 20.5-60.0 [facility] Comment on above: Performed By: #### C BC ####[facility] Cnvjhdlzyp[address] [place], [place] [address]Dr. Airam Tripathi MANUAL DIFF REQ NO Normal [facility] Comment on above: Performed By: #### C BC ####[facility] Lrqfnnqcjy[address] [place], [place] [address]Dr. Airam Tripathi MCH (RBC) [Entitic mass] 30.5 pg Normal 26.7-34.0 [facility] Comment on above: Performed By: #### C BC ####[facility] Ahncoqfrzd[address] [place], [place] [address]Dr. Airam Tripathi MCHC (RBC) [Mass/Vol] 31.1 g/dL Normal 29.9-35.2 [facility] Comment on above: Performed By: #### C BC ####[facility] [address]tlyjyoseu[address] [place], [place] [address]Dr. Airam Tripathi MCV (RBC) [Entitic vol] 98.2 fL Normal 81.0-99.0 [facility] Comment on above: Performed By: #### C BC ####[facility] Cslojxyhkm[address] [place], [place] [address]Dr. Airam Deuce MONO # 0.5 103/ul Normal 0.3-0.8 [facility] Comment on above: Performed By: #### C BC ####[facility] Twggtfhdpr6796 [place] [id number]. Airam Tripathi Monocytes/100 WBC (Bld) 7.3 % Normal 1.7-12.0 [facility] Comment on above: Performed By: #### C BC ####[facility] Epddsipyaq5820 [place] [id number]. Airam Tripathi NEUT # 4.7 103/ul Normal 1.4-6.5 [facility] Comment on above: Performed By: #### C BC ####[facility] Owwxmdbnfo9651 [place] [id number]. Airam Tripathi Neutrophils/100 WBC (Bld) 67.4 % Normal 43.0-75.0 [facility] Comment on above: Performed By: #### C BC ####[facility] Diukcnrdbp7364 [place] [address]Dr. Airam Tripathi Platelet mean volume (Bld) [Entitic vol] 9.5 fL Normal 9.5-13.5 [facility] Comment on above: Performed By: #### C BC ####[facility] Rzghaodbuk2058 [place] [address]Dr. Airam Tripathi PLT 273 103/ul Normal 150-450 [facility] Comment on above: Performed By: #### C BC ####[facility] Nruynrezoo5607 [place] [id number]. Airam Tripathi RBC 3.31 106/ul Critically low 4.20-5.40 [facility] Comment on above: Performed By: #### C BC ####[facility] Kmvjuxfdnr[address] [place], [place] [address]Dr. Airam Tripathi WBC 7.0 103/ul Normal 4.0-11.0 [facility] Comment on above: Performed By: #### C BC ####[facility] Axrxbjaqpo2358 [place] [address]Dr. Airam Tripathi PROF 14(COMP METB)on 022 Albumin [Mass/Vol] 3.4 g/dL Normal 3.4-5.0 [facility] Comment on above: Performed By: #### C MP ####[facility] Rowrhkbyhd0822 [place] [id number]. Airam Deuce Albumin/Globulin [Mass ratio] 1.1 {ratio} Normal [facility] Comment on above: Performed By: #### C MP ####[facility] Wqdwcwxzbo2415 [place] [id number]. Airam Deuce ALP [Catalytic activity/Vol] 107 U/L Normal 46-116 [facility] Comment on above: Performed By: #### C MP ####[facility] Unozzkdapp8662 [place] [address]Dr. Airam Deuce ALT [Catalytic activity/Vol] 22 U/L Normal 14-59 [facility] Comment on above: Performed By: #### C MP ####[facility] Bglbgjawpd[address] [place], [place] [address]Dr. Airam Tripathi Anion gap [Moles/Vol] 6.8 mmol/L Normal [facility] Comment on above: Performed By: #### C MP ####[facility] Mwzkrjyuwx[address] [place], [place] [address]Dr. Airam Deuce AST [Catalytic activity/Vol] 23 U/L Normal 15-37 [facility] Comment on above: Performed By: #### C MP ####[facility] Mactshbyyq7[address] [place], [place] [address]Dr. Airam Tripathi Bilirubin [Mass/Vol] 0.2 mg/dL Normal 0.2-1.0 [facility] Comment on above: Performed By: #### C MP ####[facility] L[address]opwwxsj[address] [place], [place] [address]Dr. Airam Tripathi Calcium [Mass/Vol] 8.4 mg/dL Critically low 8.5-10.1 [facility] Comment on above: Performed By: #### C MP ####[facility] Jenhcaltck[address] [place], [place] [address]Dr. Airam Tripathi Chloride [Moles/Vol] 100 mmol/L Normal 98-107 [facility] Comment on above: Performed By: #### C MP ####[facility] Fgftspgpun7567 [place] [id number]. Airam Tripathi CO2 [Moles/Vol] 29.9 mmol/L Normal 21.0-32.0 [facility] Comment on above: Performed By: #### C MP ####[facility] Ujphvcmyse7248 [place] [id number]. Airam Tripathi Creatinine [Mass/Vol] 1.20 mg/dL Critically high 0.55-1.02 [facility] Comment on above: Performed By: #### C MP ####[facility] Hpfmsatupb3380 [place] [id number]. Airam Tripathi EGFR-AF MALAGASY 56 mL/min/1.73m2 Critically low >=60 [facility] Comment on above: Performed By: #### C MP ####[facility] Zcgtodvcxp7455 [place] [address]Dr. Airam Tripathi EGFR-NON AF MALAGASY 46 mL/min/1.73m2 Critically low >=60 [facility] Comment on above: Performed By: #### C MP ####[facility] Owwmsjgfpu2339 [place] [id number]. Airam Tripathi Globulin (S) [Mass/Vol] 3.0 g/dL Normal [facility] Comment on above: Performed By: #### C MP ####[facility] Hfvysbpuzr7333 [place] [address]Dr. Airam Tripathi Glucose [Mass/Vol] 57 mg/dL Critically low 74-106 [facility] Comment on above: Performed By: #### C MP ####[facility] Rjpcxogrrx3950 [place] [phone]. Airam Tripathi Potassium [Moles/Vol] 3.7 mmol/L Normal 3.5-5.1 [facility] Comment on above: Performed By: #### C MP ####[facility] Tsdmcycqwx0799 [place] [address]Dr. Airam Tripathi Protein [Mass/Vol] 6.4 g/dL Normal 6.4-8.2 [facility] Comment on above: Performed By: #### C MP ####[facility] Gfqclsdyug3419 [place] [phone]. Airam Tripathi Sodium [Moles/Vol] 133 mmol/L Critically low 136-145 [facility] Comment on above: Performed By: #### C MP ####[facility] Kilgsoyxpm0362 [place] [address]Dr. Airam Tripathi Urea nitrogen [Mass/Vol] 39.0 mg/dL Critically high 7.0-18.0 [facility] Comment on above: Performed By: #### C MP ####[facility] Smqkfrponj2095 [place] [address]Dr. Airam Tirpathi Urea nitrogen/Creatinine [Mass ratio] 32.5 mg/mg Normal [facility] Comment on above: Performed By: #### C MP ####[facility] [address]urhxq[address] [place], [place] [address]Dr. Airam Tripathi OSMOLALITYon 03-24-2022 Osmolality [Osmolality] 285 mosm/kg Normal 275-295 [facility] Comment on above: Performed By: #### O SMO ####[facility] Sykiedkbks[address] [place], [place] [address]Dr. Airam Tripathi CBC AUTO DIFFon 03-22-2022 BASO # 0.0 103/ul Normal 0.0-0.1 [facility] Comment on above: Performed By: #### C BC ####[facility] Dvanmiekst[address]201 [place] [address]Dr. Airam Deuce Basophils/100 WBC (Bld) 0.4 % Normal 0.2-2.0 [facility] Comment on above: Performed By: #### C BC ####[facility] Dhpziwjxxx5638 [place] [address]Dr. Airam Tripathi EO # 0.2 103/ul Normal 0.0-0.7 [facility] Comment on above: Performed By: #### C BC ####[facility] Ckdmmhidos[address] [place], [place] [address]Dr. Airam Tripathi Eosinophils/100 WBC (Bld) 2.3 % Normal 0.9-7.0 [facility] Comment on above: Performed By: #### C BC ####[facility] Trofrskhaa5527 [place] [address]Dr. Airam Tripathi Erythrocyte distribution width (RBC) [Ratio] 13.9 % Normal 11.0-15.0 [facility] Comment on above: Performed By: #### C BC ####[facility] Snvxdduqxg[address] [place], [place] [address]Dr. Airam Tripathi Hematocrit (Bld) [Volume fraction] 32.6 % Critically low 36.0-48.0 [facility] Comment on above: Performed By: #### C BC ####[facility] Sboojpkmql[address] [place], [place] [address]Dr. Airam Tripathi Hemoglobin (Bld) [Mass/Vol] 10.3 g/dL Critically low 12.0-16.0 [facility] Comment on above: Performed By: #### C BC ####[facility] Ahvqywzlbk[address] [place], [place] [address]Dr. Airam Tripathi IG # 0.11 10e3/ul Critically high 0.00-0.03 [facility] Comment on above: Performed By: #### C BC ####[facility] Uofmkcfrda[address] [place], [place] [address]Dr. Airam Tripathi IG % 1.4 % Critically high 0.0-0.5 [facility] Comment on above: Performed By: #### C BC ####[facility] Exmsunsiwn[address] [place], [place] [address]Dr. Airam Tripathi LYMPH # 1.3 103/ul Normal 1.2-3.8 [facility] Comment on above: Performed By: #### C BC ####[facility] Kyfsfukcxa[address] [place], [place] [address]Dr. Airam Tripathi Lymphocytes/100 WBC (Bld) 15.9 % Critically low 20.5-60.0 [facility] Comment on above: Performed By: #### C BC ####[facility] Umsqyotipm[address] [place], [place] [address]Dr. Airam Tripathi MANUAL DIFF REQ NO Normal [facility] Comment on above: Performed By: #### C BC ####[facility] Evrlfenicg1112 [place] [id number]. Airam Deuce MCH (RBC) [Entitic mass] 30.7 pg Normal 26.7-34.0 [facility] Comment on above: Performed By: #### C BC ####[facility] Nkdfdqmxcl8877 [place] [id number]. Airam Decue MCHC (RBC) [Mass/Vol] 31.6 g/dL Normal 29.9-35.2 [facility] Comment on above: Performed By: #### C BC ####[facility] Nsbfivekcg9901 [place] [id number]. Selenaneil Tripathi MCV (RBC) [Entitic vol] 97.0 fL Normal 81.0-99.0 [facility] Comment on above: Performed By: #### C BC ####[facility] Hsxnyhlpty[address] [place], [place] [address]Dr. Airam Tripathi MONO # 0.6 103/ul Normal 0.3-0.8 [facility] Comment on above: Performed By: #### C BC ####[facility] Lsudhkrzsj[address] [place], [place] [address]Dr. Airam Tripathi Monocytes/100 WBC (Bld) 6.9 % Normal 1.7-12.0 [facility] Comment on above: Performed By: #### C BC ####[facility] Flurmjmtdx[address] [place], [place] [address]Dr. Airam Tripathi NEUT # 5.9 103/ul Normal 1.4-6.5 [facility] Comment on above: Performed By: #### C BC ####[facility] Mabrozzupw[address] [place], [place] [address]Dr. Airam Tripathi Neutrophils/100 WBC (Bld) 73.1 % Normal 43.0-75.0 [facility] Comment on above: Performed By: #### C BC ####[facility] Xilnxzqfjc[address] [place], [place] [address]Dr. Airam Tripathi Platelet mean volume (Bld) [Entitic vol] 9.5 fL Normal 9.5-13.5 [facility] Comment on above: Performed By: #### C BC ####[facility] Dfwsweksvv1109 [place] [address]Dr. Airam Tripathi PLT 313 103/ul Normal 150-450 [facility] Comment on above: Performed By: #### C BC ####[facility] Pmkpsxjags8556 [place] [phone]. Airam Tripathi RBC 3.36 106/ul Critically low 4.20-5.40 [facility] Comment on above: Performed By: #### C BC ####[facility] Olgzsaznef3494 [place] [phone]. Airam Tripathi WBC 8.1 103/ul Normal 4.0-11.0 [facility] Comment on above: Performed By: #### C BC ####[facility] Bwoxvfwnyf1413 [place] [address]Dr. Airam Tripathi PROF 14(COMP METB)on 022 Albumin [Mass/Vol] 3.3 g/dL Critically low 3.4-5.0 [facility] Comment on above: Performed By: #### C MP ####[facility] Kxnfnsfbyf[address] [place], [place] [address]Dr. Airam Tripathi Albumin/Globulin [Mass ratio] 1.0 {ratio} Normal [facility] Comment on above: Performed By: #### C MP ####[facility] Rvklcmqona8096 [place] [address]Dr. Airam Tripathi ALP [Catalytic activity/Vol] 113 U/L Normal 46-116 [facility] Comment on above: Performed By: #### C MP ####[facility] Frucvjakkp1090 [place] [address]Dr. Airam Tripathi ALT [Catalytic activity/Vol] 21 U/L Normal 14-59 [facility] Comment on above: Performed By: #### C MP ####[facility] Gxiqbzbrsh7001 [place] [address]Dr. Airam Tripathi Anion gap [Moles/Vol] 12.2 mmol/L Normal [facility] Comment on above: Performed By: #### C MP ####[facility] Dwhvujxqod5978 [place] [phone]. Airam Tripathi AST [Catalytic activity/Vol] 21 U/L Normal 15-37 [facility] Comment on above: Performed By: #### C MP ####[facility] Uktxjzebhf2753 [place] [phone]. Airam Tripathi Bilirubin [Mass/Vol] 0.2 mg/dL Normal 0.2-1.0 [facility] Comment on above: Performed By: #### C MP ####[facility] Ndivxehawz8711 [place] [address]Dr. Airam Tripathi Calcium [Mass/Vol] 8.4 mg/dL Critically low 8.5-10.1 [facility] Comment on above: Performed By: #### C MP ####[facility] Sxwgavtpro[address] [place], [place] [address]Dr. Airam Tripathi Chloride [Moles/Vol] 103 mmol/L Normal 98-107 [facility] Comment on above: Performed By: #### C MP ####[facility] Nwidjiznbx7416 [place] [address]Dr. Airam Tripathi CO2 [Moles/Vol] 24.4 mmol/L Normal 21.0-32.0 [facility] Comment on above: Performed By: #### C MP ####[facility] Ahcyxgdgnw[address] [place], [place] [address]Dr. Airam Tripathi Creatinine [Mass/Vol] 1.11 mg/dL Critically high 0.55-1.02 [facility] Comment on above: Performed By: #### C MP ####[facility] Zmcfwnaisq5009 [place] [address]Dr. Airam Deuce EGFR-AF MALAGASY >60 Normal >=60 [facility] Comment on above: Performed By: #### C MP ####[facility] Pnmsvlypjf4669 [place] [address]Dr. Airam Deuce EGFR-NON AF MALAGASY 50 mL/min/1.73m2 Critically low >=60 [facility] Comment on above: Performed By: #### C MP ####[facility] Zgcgokkolx7727 [place] [phone]. Airam Tripathi Globulin (S) [Mass/Vol] 3.2 g/dL Normal [facility] Comment on above: Performed By: #### C MP ####[facility] Arojirqowe7419 [place] [phone]. Airam Tripathi Glucose [Mass/Vol] 84 mg/dL Normal 74-106 [facility] Comment on above: Performed By: #### C MP ####[facility] Vdqpabeyny8476 [place] [address]Dr. Airam Tripathi Potassium [Moles/Vol] 4.6 mmol/L Normal 3.5-5.1 [facility] Comment on above: Performed By: #### C MP ####[facility] Bfjlagqdvd9230 [place] [address]Dr. Airam Tripathi Protein [Mass/Vol] 6.5 g/dL Normal 6.4-8.2 [facility] Comment on above: Performed By: #### C MP ####[facility] Musnwbvgkq5739 [place] [address]Dr. Airam Tripathi Sodium [Moles/Vol] 135 mmol/L Critically low 136-145 [facility] Comment on above: Performed By: #### C MP ####[facility] Elbghktoij9548 [place] [address]Dr. Airam Tripathi Urea nitrogen [Mass/Vol] 39.0 mg/dL Critically high 7.0-18.0 [facility] Comment on above: Performed By: #### C MP ####[facility] Yrqahxatfo0460 [place] [address]Dr. Airam Tripathi Urea nitrogen/Creatinine [Mass ratio] 35.1 mg/mg Normal [facility] Comment on above: Performed By: #### C MP ####[facility] Dapgtsvxji2927 [place] [address]Dr. Airam Tripathi OSMOLALITYon 03-17-2022 Osmolality [Osmolality] 277 mosm/kg Normal 275-295 [facility] Comment on above: Performed By: #### O SMO ####[facility] Bsqxwbobuk5839 [place] [phone]. Airam Tripathi CBC AUTO DIFFon 03-15-2022 BASO # 0.0 103/ul Normal 0.0-0.1 [facility] Comment on above: Performed By: #### C BC ####[facility] Rpcxptyvgf[address] [place], [place] [address]Dr. Selenaneil Tripathi Basophils/100 WBC (Bld) 0.4 % Normal 0.2-2.0 [facility] Comment on above: Performed By: #### C BC ####[facility] Xvtlpwybci[address] [place], [place] [address]Dr. Airam Deuce EO # 0.1 103/ul Normal 0.0-0.7 [facility] Comment on above: Performed By: #### C BC ####[facility] Luynhixjpt49[address] [place], [place] [address]Dr. Selenaneil Tripathi Eosinophils/100 WBC (Bld) 2.4 % Normal 0.9-7.0 [facility] Comment on above: Performed By: #### C BC ####[facility] Mdwuxnjpiw[address] [place], [place] [address]Dr. Airam Tripathi Erythrocyte distribution width (RBC) [Ratio] 13.9 % Normal 11.0-15.0 [facility] Comment on above: Performed By: #### C BC ####[facility] Qoatlyyfyy[address] [place], [place] [address]Dr. Airam Tripathi Hematocrit (Bld) [Volume fraction] 31.2 % Critically low 36.0-48.0 [facility] Comment on above: Performed By: #### C BC ####[facility] Vndbwzzkmf[address] [place], [place] [address]Dr. Selenaneil Tripathi Hemoglobin (Bld) [Mass/Vol] 9.9 g/dL Critically low 12.0-16.0 [facility] Comment on above: Performed By: #### C BC ####[facility] Arfrcewyhl[address] [place], [place] [address]Dr. Airam Tripathi IG # 0.03 10e3/ul Normal 0.00-0.03 [facility] Comment on above: Performed By: #### C BC ####[facility] Claemyinjl5085 [place] [address]Dr. Airam Tripathi IG % 0.6 % Critically high 0.0-0.5 [facility] Comment on above: Performed By: #### C BC ####[facility] Runixfmsix1303 [place] [address]Dr. Airam Tripathi LYMPH # 1.5 103/ul Normal 1.2-3.8 [facility] Comment on above: Performed By: #### C BC ####[facility] Vglhuzjwlb4850 [place] [address]Dr. Airam Tripathi Lymphocytes/100 WBC (Bld) 29.4 % Normal 20.5-60.0 [facility] Comment on above: Performed By: #### C BC ####[facility] Svepueutub68[address] [place], [place] [address]Dr. Selenaneil Tripathi MANUAL DIFF REQ NO Normal [facility] Comment on above: Performed By: #### C BC ####[facility] Oltsugqdhf66[address] [place], [place] [address]Dr. Airam Tripathi MCH (RBC) [Entitic mass] 30.5 pg Normal 26.7-34.0 [facility] Comment on above: Performed By: #### C BC ####[facility] Tjyskayujh[address] [place], [place] [address]Dr. Airam Tripathi MCHC (RBC) [Mass/Vol] 31.7 g/dL Normal 29.9-35.2 [facility] Comment on above: Performed By: #### C BC ####[facility] Lhszqlpcik[address] [place], [place] [address]Dr. Airam Tripathi MCV (RBC) [Entitic vol] 96.0 fL Normal 81.0-99.0 [facility] Comment on above: Performed By: #### C BC ####[facility] Ivlngzocsi[address] [place], [place] [address]Dr. Selenaneil Tripathi MONO # 0.4 103/ul Normal 0.3-0.8 [facility] Comment on above: Performed By: #### C BC ####[facility] Ilnfgisaik6760 [place] [phone]. Airam Tripathi Monocytes/100 WBC (Bld) 7.0 % Normal 1.7-12.0 [facility] Comment on above: Performed By: #### C BC ####[facility] Ewpozugpts0060 [place] [phone]. Airam Tripathi NEUT # 3.0 103/ul Normal 1.4-6.5 [facility] Comment on above: Performed By: #### C BC ####[facility] Syauwtgnmy4162 [place] [phone]. Airam Tripathi Neutrophils/100 WBC (Bld) 60.2 % Normal 43.0-75.0 [facility] Comment on above: Performed By: #### C BC ####[facility] Xoefpyuipk6414 [place] [address]Dr. Selenaneil Tripathi Platelet mean volume (Bld) [Entitic vol] 9.6 fL Normal 9.5-13.5 [facility] Comment on above: Performed By: #### C BC ####[facility] Ltbfbkmoiq9538 [place] [address]Dr. Airam Tripathi PLT 258 103/ul Normal 150-450 [facility] Comment on above: Performed By: #### C BC ####[facility] Thndblshiz3746 [place] [phone]. Selenaneil Tripathi RBC 3.25 106/ul Critically low 4.20-5.40 [facility] Comment on above: Performed By: #### C BC ####[facility] Exxqladfye3475 [place] [phone]. Airam Tripathi WBC 5.0 103/ul Normal 4.0-11.0 [facility] Comment on above: Performed By: #### C BC ####[facility] Gwkpeylvth0887 [place] [address]Dr. Airam Tripathi PROF 14(COMP METB)on 022 Albumin [Mass/Vol] 3.3 g/dL Critically low 3.4-5.0 [facility] Comment on above: Performed By: #### C MP ####[facility] Hqwjnhhlss2281 [place] [phone]. Selenaneil Tripathi Albumin/Globulin [Mass ratio] 1.1 {ratio} Normal [facility] Comment on above: Performed By: #### C MP ####[facility] Glbypifywq9383 [place] [phone]. Airam Tripathi ALP [Catalytic activity/Vol] 106 U/L Normal 46-116 [facility] Comment on above: Performed By: #### C MP ####[facility] Vshwmksgfh2276 [place] [address]Dr. Airam Tripathi ALT [Catalytic activity/Vol] 22 U/L Normal 14-59 [facility] Comment on above: Performed By: #### C MP ####[facility] Iosznypknc1303 [place] [address]Dr. Airam Tripathi Anion gap [Moles/Vol] 11.4 mmol/L Normal [facility] Comment on above: Performed By: #### C MP ####[facility] Mjlnicyvee3857 [place] [address]Dr. Airam Tripathi AST [Catalytic activity/Vol] 22 U/L Normal 15-37 [facility] Comment on above: Performed By: #### C MP ####[facility] Ufayqtzkyx[address] [place], [place] [address]Dr. Airam Tripathi Bilirubin [Mass/Vol] 0.3 mg/dL Normal 0.2-1.0 [facility] Comment on above: Performed By: #### C MP ####[facility] Novbyfihvh[address] [place], [place] [address]Dr. Airam Tripathi Calcium [Mass/Vol] 8.1 mg/dL Critically low 8.5-10.1 [facility] Comment on above: Performed By: #### C MP ####[facility] Hxolgzcinb8[address] [place], [place] [address]Dr. Airam Tripathi Chloride [Moles/Vol] 100 mmol/L Normal 98-107 [facility] Comment on above: Performed By: #### C MP ####[facility] Pttbvqnqfe9091 [place] [phone]. Airam Tripathi CO2 [Moles/Vol] 25.6 mmol/L Normal 21.0-32.0 [facility] Comment on above: Performed By: #### C MP ####[facility] Yzfqboahvq9396 [place] [phone]. Airam Tripathi Creatinine [Mass/Vol] 1.21 mg/dL Critically high 0.55-1.02 [facility] Comment on above: Performed By: #### C MP ####[facility] Ulrwckbeag9861 [place] [phone]. Airam Tripathi EGFR-AF MALAGASY 55 mL/min/1.73m2 Critically low >=60 [facility] Comment on above: Performed By: #### C MP ####[facility] Gupzvvlkym[address] [place], [place] [address]Dr. Airam Tripathi EGFR-NON AF MALAGASY 45 mL/min/1.73m2 Critically low >=60 [facility] Comment on above: Performed By: #### C MP ####[facility] Uwojsojmec5248 [place] [address]Dr. Airam Tripathi Globulin (S) [Mass/Vol] 3.0 g/dL Normal [facility] Comment on above: Performed By: #### C MP ####[facility] Iphmohhqkw9113 [place] [address]Dr. Airam Tripathi Glucose [Mass/Vol] 84 mg/dL Normal 74-106 [facility] Comment on above: Performed By: #### C MP ####[facility] Vvfpzwesnl[address] [place], [place] [address]Dr. Airam Tripathi Potassium [Moles/Vol] 4.0 mmol/L Normal 3.5-5.1 [facility] Comment on above: Performed By: #### C MP ####[facility] Dknhyhkdet[address] [place], [place] [address]Dr. Airam Tripathi Protein [Mass/Vol] 6.3 g/dL Critically low 6.4-8.2 [facility] Comment on above: Performed By: #### C MP ####[facility] Zekcmiayvv6610 [place] [phone]. Ariam Tripathi Sodium [Moles/Vol] 133 mmol/L Critically low 136-145 [facility] Comment on above: Performed By: #### C MP ####[facility] Kqlsqgfgru69[address] [place], [place] [address]Dr. Airam Tripathi Urea nitrogen [Mass/Vol] 29.0 mg/dL Critically high 7.0-18.0 [facility] Comment on above: Performed By: #### C MP ####[facility] Pnppfhxhrp[address] [place], [place] [address]Dr. Airam Tripathi Urea nitrogen/Creatinine [Mass ratio] 24.0 mg/mg Normal [facility] Comment on above: Performed By: #### C MP ####[facility] Ueobajsedf65[address] [place], [place] [address]Dr. Airam Deuce OSMOLALITYon 03-12-2022 Osmolality [Osmolality] 285 mosm/kg Normal 275-295 [facility] Comment on above: Performed By: #### O SMO ####[facility] Vhypweuisa4[address] [place], [place] [address]Dr. Airam Deuce CBC AUTO DIFFon 03-10-2022 BASO # 0.0 103/ul Normal 0.0-0.1 [facility] Comment on above: Performed By: #### C BC ####[facility] Hkyrmessxa[address] [place], [place] [address]Dr. Airam Deuce Basophils/100 WBC (Bld) 0.3 % Normal 0.2-2.0 [facility] Comment on above: Performed By: #### C BC ####[facility] Ddnukljxqk028[address] [place], [place] [address]Dr. Airam Deuce EO # 0.2 103/ul Normal 0.0-0.7 [facility] Comment on above: Performed By: #### C BC ####[facility] Ywqlqbejys303[address] [place], [place] [address]Dr. Selenaneil Tripathi Eosinophils/100 WBC (Bld) 2.7 % Normal 0.9-7.0 [facility] Comment on above: Performed By: #### C BC ####[facility] Ublseisvip1097 [place] [address]Dr. Airam Tripathi Erythrocyte distribution width (RBC) [Ratio] 14.4 % Normal 11.0-15.0 [facility] Comment on above: Performed By: #### C BC ####[facility] Zxorvozqid[address] [place], [place] [address]Dr. Airam Tripathi Hematocrit (Bld) [Volume fraction] 32.5 % Critically low 36.0-48.0 [facility] Comment on above: Performed By: #### C BC ####[facility] Bdncvrhydt85[address] [place], [place] [address]Dr. Airam Tripathi Hemoglobin (Bld) [Mass/Vol] 10.1 g/dL Critically low 12.0-16.0 [facility] Comment on above: Performed By: #### C BC ####[facility] Ikjrcqlqnx[address] [place], [place] [address]Dr. Airam Tripathi IG # 0.03 10e3/ul Normal 0.00-0.03 [facility] Comment on above: Performed By: #### C BC ####[facility] Ydikgbknlc[address] [place], [place] [address]Dr. Airam Tripathi IG % 0.4 % Normal 0.0-0.5 [facility] Comment on above: Performed By: #### C BC ####[facility] W[address]jcaknflh[address] [place], [place] [address]Dr. Airam Tripathi LYMPH # 1.4 103/ul Normal 1.2-3.8 [facility] Comment on above: Performed By: #### C BC ####[facility] Bkgfenamgk8[address] [place], [place] [address]Dr. Airam Tripathi Lymphocytes/100 WBC (Bld) 19.4 % Critically low 20.5-60.0 [facility] Comment on above: Performed By: #### C BC ####[facility] Ogwcbhnkzq[address] [place], [place] [address]Dr. Airam Tripathi MANUAL DIFF REQ NO Normal [facility] Comment on above: Performed By: #### C BC ####[facility] Qrjmezazuz2565 [place] [phone]. Airam Deuce MCH (RBC) [Entitic mass] 30.6 pg Normal 26.7-34.0 [facility] Comment on above: Performed By: #### C BC ####[facility] Slcejjhmbx8838 [place] [phone]. Selenaneil Tripathi MCHC (RBC) [Mass/Vol] 31.1 g/dL Normal 29.9-35.2 [facility] Comment on above: Performed By: #### C BC ####[facility] Cqssdrfocw8839 [place] [address]Dr. Airam Tripathi MCV (RBC) [Entitic vol] 98.5 fL Normal 81.0-99.0 [facility] Comment on above: Performed By: #### C BC ####[facility] Mnfiegptta[address] [place], [place] [address]Dr. Airam Tripathi MONO # 0.5 103/ul Normal 0.3-0.8 [facility] Comment on above: Performed By: #### C BC ####[facility] B[address]dvhcihbj[address] [place], [place] [address]Dr. Airam Tripathi Monocytes/100 WBC (Bld) 6.7 % Normal 1.7-12.0 [facility] Comment on above: Performed By: #### C BC ####[facility] Oydmibcjgv[address] [place], [place] [address]Dr. Airam Tripathi NEUT # 5.2 103/ul Normal 1.4-6.5 [facility] Comment on above: Performed By: #### C BC ####[facility] Egaoxtavrk[address] [place], [place] [address]Dr. Airam Tripathi Neutrophils/100 WBC (Bld) 70.5 % Normal 43.0-75.0 [facility] Comment on above: Performed By: #### C BC ####[facility] Lbipiyeach[address] [place], [place] [address]Dr. Airam Tripathi Platelet mean volume (Bld) [Entitic vol] 9.8 fL Normal 9.5-13.5 [facility] Comment on above: Performed By: #### C BC ####[facility] Lrhqhgwhxm0182 [place] [address]Dr. Selenaneil Deuce PLT 277 103/ul Normal 150-450 [facility] Comment on above: Performed By: #### C BC ####[facility] Kphahfazcw8221 [place] [phone]. Selenaneil Deuce RBC 3.30 106/ul Critically low 4.20-5.40 [facility] Comment on above: Performed By: #### C BC ####[facility] Xekunaurpe5585 [place] [address]Dr. Airam Tripathi WBC 7.4 103/ul Normal 4.0-11.0 [facility] Comment on above: Performed By: #### C BC ####[facility] Klcpxlrpvx9296 [place] [address]Dr. Airam Tripathi PROF 14(COMP METB)on 022 Albumin [Mass/Vol] 3.6 g/dL Normal 3.4-5.0 [facility] Comment on above: Performed By: #### C MP ####[facility] Faasnqyjbw[address] [place], [place] [address]Dr. Airam Tripathi Albumin/Globulin [Mass ratio] 1.1 {ratio} Normal [facility] Comment on above: Performed By: #### C MP ####[facility] Hkznkxmsjy[address] [place], [place] [address]Dr. Airam Tripathi ALP [Catalytic activity/Vol] 112 U/L Normal 46-116 [facility] Comment on above: Performed By: #### C MP ####[facility] Xschaudoot[address] [place] [address]Dr. Airam Tripathi ALT [Catalytic activity/Vol] 26 U/L Normal 14-59 [facility] Comment on above: Performed By: #### C MP ####[facility] Nzrzvkvuzg[address] [place] [address]Dr. Airam Tripathi Anion gap [Moles/Vol] 12.0 mmol/L Normal [facility] Comment on above: Performed By: #### C MP ####[facility] Evnnzlyzvi[address] [place] [id number]. Airam Tripathi AST [Catalytic activity/Vol] 25 U/L Normal 15-37 [facility] Comment on above: Performed By: #### C MP ####[facility] Paqabeyrru[address] [place] [id number]. Airam Tripathi Bilirubin [Mass/Vol] 0.4 mg/dL Normal 0.2-1.0 [facility] Comment on above: Performed By: #### C MP ####[facility] Sbtuqbrovi[address] [place], [place] [address]Dr. Airam Tripathi Calcium [Mass/Vol] 8.9 mg/dL Normal 8.5-10.1 [facility] Comment on above: Performed By: #### C MP ####[facility] Tshuajeray[address] [place], [place] [address]Dr. Airam Tripathi Chloride [Moles/Vol] 101 mmol/L Normal 98-107 [facility] Comment on above: Performed By: #### C MP ####[facility] Gexxiakoba[address] [place], [place] [address]Dr. Airam Tripathi CO2 [Moles/Vol] 24.0 mmol/L Normal 21.0-32.0 [facility] Comment on above: Performed By: #### C MP ####[facility] Otsoflrnwn[address] [place], [place] [address]Dr. Airam Tripathi Creatinine [Mass/Vol] 1.51 mg/dL Critically high 0.55-1.02 [facility] Comment on above: Performed By: #### C MP ####[facility] Kfjcjwkftm[address] [place], [place] [address]Dr. Airam Tripathi EGFR-AF MALAGASY 43 mL/min/1.73m2 Critically low >=60 [facility] Comment on above: Performed By: #### C MP ####[facility] Dismblrzqj23[address] [place], [place] [address]Dr. Airam Tripathi EGFR-NON AF MALAGASY 35 mL/min/1.73m2 Critically low >=60 [facility] Comment on above: Performed By: #### C MP ####[facility] Mocmwuagrb[address] [place] [address]Dr. Airam Tripathi Globulin (S) [Mass/Vol] 3.2 g/dL Normal [facility] Comment on above: Performed By: #### C MP ####[facility] Hjrxyvvsbk8236 [place] [address]Dr. Airam Tripathi Glucose [Mass/Vol] 82 mg/dL Normal 74-106 [facility] Comment on above: Performed By: #### C MP ####[facility] Krcwcsdpza94[address] [place], [place] [address]Dr. Airam Tripathi Potassium [Moles/Vol] 4.0 mmol/L Normal 3.5-5.1 [facility] Comment on above: Performed By: #### C MP ####[facility] Bfwblkoaag[address] [place], [place] [address]Dr. Airam Tripathi Protein [Mass/Vol] 6.8 g/dL Normal 6.4-8.2 [facility] Comment on above: Performed By: #### C MP ####[facility] Rmwpdqssqe26[address] [place], [place] [address]Dr. Airam Tripathi Sodium [Moles/Vol] 133 mmol/L Critically low 136-145 [facility] Comment on above: Performed By: #### C MP ####[facility] Lopbjoumby74[address] [place], [place] [address]Dr. Airam Tripathi Urea nitrogen [Mass/Vol] 37.0 mg/dL Critically high 7.0-18.0 [facility] Comment on above: Performed By: #### C MP ####[facility] Fpmfopbxzq[address] [place], [place] [address]Dr. Airam Tripathi Urea nitrogen/Creatinine [Mass ratio] 24.5 mg/mg Normal [facility] Comment on above: Performed By: #### C MP ####[facility] Uzzturjhim[address] [place], [place] [address]Dr. Airam Tripathi OSMOLALITYon 03-07-2022 Osmolality [Osmolality] 284 mosm/kg Normal 275-295 [facility] Comment on above: Performed By: #### O SMO ####[facility] Qwuyshrvmb[address] [place] [id number]. Airam Tripathi CBC AUTO DIFFon 03-04-2022 BASO # 0.0 103/ul Normal 0.0-0.1 [facility] Comment on above: Performed By: #### C BC ####[facility] Oldiisgnbs[address] [place] [address]Dr. Selenaneil Tripathi Basophils/100 WBC (Bld) 0.3 % Normal 0.2-2.0 [facility] Comment on above: Performed By: #### C BC ####[facility] Ezcsjmtfcb18[address] [place], [place] [address]Dr. Airam Deuce EO # 0.1 103/ul Normal 0.0-0.7 [facility] Comment on above: Performed By: #### C BC ####[facility] Vsokilxtfb39[address] [place], [place] [address]Dr. Selenaneil Tripathi Eosinophils/100 WBC (Bld) 2.0 % Normal 0.9-7.0 [facility] Comment on above: Performed By: #### C BC ####[facility] Wdjcxjvpkw[address] [place], [place] [address]Dr. Airam Tripathi Erythrocyte distribution width (RBC) [Ratio] 14.5 % Normal 11.0-15.0 [facility] Comment on above: Performed By: #### C BC ####[facility] Uuevbaykwl[address]13[address] [place], [place] [address]Dr. Airam Tripathi Hematocrit (Bld) [Volume fraction] 35.4 % Critically low 36.0-48.0 [facility] Comment on above: Performed By: #### C BC ####[facility] Mhuztqgqdn[address] [place], [place] [address]Dr. Airam Tripathi Hemoglobin (Bld) [Mass/Vol] 11.0 g/dL Critically low 12.0-16.0 [facility] Comment on above: Performed By: #### C BC ####[facility] Afsgnctlsn217[address] [place], [place] [address]Dr. Airam Tripathi IG # 0.03 10e3/ul Normal 0.00-0.03 [facility] Comment on above: Performed By: #### C BC ####[facility] Bguphfgudz[address] [place] [address]Dr. Airam Tripathi IG % 0.4 % Normal 0.0-0.5 [facility] Comment on above: Performed By: #### C BC ####[facility] Wbceghpzwh[address] [place], [place] [address]Dr. Airam Tripathi LYMPH # 1.7 103/ul Normal 1.2-3.8 [facility] Comment on above: Performed By: #### C BC ####[facility] Mewnlrceqh224[address] [place], [place] [address]Dr. Airam Tripathi Lymphocytes/100 WBC (Bld) 23.8 % Normal 20.5-60.0 [facility] Comment on above: Performed By: #### C BC ####[facility] Bwgcbbvhid[address] [place], [place] [address]Dr. Airam Tripathi MANUAL DIFF REQ NO Normal [facility] Comment on above: Performed By: #### C BC ####[facility] Zyjqntfuji[address] [place], [place] [address]Dr. Selenaneil Tripathi MCH (RBC) [Entitic mass] 30.0 pg Normal 26.7-34.0 [facility] Comment on above: Performed By: #### C BC ####[facility] Jxxzncdcwm03[address] [place], [place] [address]Dr. Selenaneil Tripathi MCHC (RBC) [Mass/Vol] 31.1 g/dL Normal 29.9-35.2 [facility] Comment on above: Performed By: #### C BC ####[facility] Qauitwvbmx[address] [place], [place] [address]DrKianna Selenaneil Tripathi MCV (RBC) [Entitic vol] 96.5 fL Normal 81.0-99.0 [facility] Comment on above: Performed By: #### C BC ####[facility] Vklawmjyna[address] [place], [place] [address]DrKianna Tripathi MONO # 0.5 103/ul Normal 0.3-0.8 [facility] Comment on above: Performed By: #### C BC ####[facility] Iztvmfsapq06[address] [place] [id number]. Airam Tripathi Monocytes/100 WBC (Bld) 6.6 % Normal 1.7-12.0 [facility] Comment on above: Performed By: #### C BC ####[facility] Yqvgypsees[address] [place] [id number]. Airam Tripathi NEUT # 4.7 103/ul Normal 1.4-6.5 [facility] Comment on above: Performed By: #### C BC ####[facility] Rnvuoueulr11[address] [place] [id number]. Airam Tripathi Neutrophils/100 WBC (Bld) 66.9 % Normal 43.0-75.0 [facility] Comment on above: Performed By: #### C BC ####[facility] Twkdkldluo9[address] [place] [address]Dr. Airam Tripathi Platelet mean volume (Bld) [Entitic vol] 10.2 fL Normal 9.5-13.5 [facility] Comment on above: Performed By: #### C BC ####[facility] Pfqnxdxndb7759 [place] [id number]. Airam Tripathi PLT 270 103/ul Normal 150-450 [facility] Comment on above: Performed By: #### C BC ####[facility] Peupeudrch[address] [place] [id number]. Airam Tripathi RBC 3.67 106/ul Critically low 4.20-5.40 [facility] Comment on above: Performed By: #### C BC ####[facility] Vvlgmtxloq3436 [place] [id number]. Airam Tripathi WBC 7.0 103/ul Normal 4.0-11.0 [facility] Comment on above: Performed By: #### C BC ####[facility] Isulbektgd[address] [place] [phone] Triptahi PROF 14(COMP METB)on 022 Albumin [Mass/Vol] 3.3 g/dL Critically low 3.4-5.0 [facility] Comment on above: Performed By: #### C MP ####[facility] Vczjfbuhpd4[address] [place] [address]Dr. Airam Tripathi Albumin/Globulin [Mass ratio] 1.0 {ratio} Normal [facility] Comment on above: Performed By: #### C MP ####[facility] Cfcvochosr9073 [place] [address]Dr. Airam Tripathi ALP [Catalytic activity/Vol] 107 U/L Normal 46-116 [facility] Comment on above: Performed By: #### C MP ####[facility] Akavvetyvt[address] [place], [place] [address]Dr. Airam Tripathi ALT [Catalytic activity/Vol] 23 U/L Normal 14-59 [facility] Comment on above: Performed By: #### C MP ####[facility] Lkdrrftdug[address] [place], [place] [address]Dr. Airam Tripathi Anion gap [Moles/Vol] 13.0 mmol/L Normal [facility] Comment on above: Performed By: #### C MP ####[facility] Qwfjpgdxui758[address] [place], [place] [address]Dr. Airam Tripathi AST [Catalytic activity/Vol] 30 U/L Normal 15-37 [facility] Comment on above: Performed By: #### C MP ####[facility] Ifplkcgxdu04[address] [place], [place] [address]Dr. Airam Tripathi Bilirubin [Mass/Vol] 0.2 mg/dL Normal 0.2-1.0 [facility] Comment on above: Performed By: #### C MP ####[facility] Grabheilww[address] [place], [place] [address]Dr. Airam Tripathi Calcium [Mass/Vol] 8.8 mg/dL Normal 8.5-10.1 [facility] Comment on above: Performed By: #### C MP ####[facility] Mbdcjmxjwi[address] [place], [place] [address]Dr. Airam Tripathi Chloride [Moles/Vol] 103 mmol/L Normal 98-107 [facility] Comment on above: Performed By: #### C MP ####[facility] Wltdfjarux3[address] [place] [id number]. Airam Tripathi CO2 [Moles/Vol] 24.9 mmol/L Normal 21.0-32.0 [facility] Comment on above: Performed By: #### C MP ####[facility] Vxnznqkhul3167 [place] [id number]. Airam Tripathi Creatinine [Mass/Vol] 1.06 mg/dL Critically high 0.55-1.02 [facility] Comment on above: Performed By: #### C MP ####[facility] Hzdubrwxtn7695 [place] [id number]. Airam Tripathi EGFR-AF MALAGASY >60 Normal >=60 [facility] Comment on above: Performed By: #### C MP ####[facility] Ortqwuxpag8157 [place] [address]Dr. Airam Tripathi EGFR-NON AF MALAGASY 53 mL/min/1.73m2 Critically low >=60 [facility] Comment on above: Performed By: #### C MP ####[facility] Tcxiskosne33[address] [place] [address]Dr. Airam Tripathi Globulin (S) [Mass/Vol] 3.2 g/dL Normal [facility] Comment on above: Performed By: #### C MP ####[facility] Gcucbcyuqz99[address] [place] [address]Dr. Airam Tripathi Glucose [Mass/Vol] 91 mg/dL Normal 74-106 [facility] Comment on above: Performed By: #### C MP ####[facility] Maajsabdeq[address] [place], [place] [address]Dr. Airam Tripathi Potassium [Moles/Vol] 3.9 mmol/L Normal 3.5-5.1 [facility] Comment on above: Performed By: #### C MP ####[facility] Cckqhpauiz10[address] [place] [address]Dr. Airam Tripathi Protein [Mass/Vol] 6.5 g/dL Normal 6.4-8.2 [facility] Comment on above: Performed By: #### C MP ####[facility] Jkbdnyxubb9697 [place] [address]Dr. Airam Tripathi Sodium [Moles/Vol] 137 mmol/L Normal 136-145 [facility] Comment on above: Performed By: #### C MP ####[facility] Rxvnxpifph3562 [place] [address]Dr. Airam Tripathi Urea nitrogen [Mass/Vol] 27.0 mg/dL Critically high 7.0-18.0 [facility] Comment on above: Performed By: #### C MP ####[facility] Eavuzthnrx2235 [place] [address]Dr. Airam Deuce Urea nitrogen/Creatinine [Mass ratio] 25.5 mg/mg Normal [facility] Comment on above: Performed By: #### C MP ####[facility] Tgckidzled[address] [place], [place] [address]Dr. Airam Tripathi OSMOLALITYon 03-03-2022 Osmolality [Osmolality] 383 mosm/kg Invalid Interpretation Code [id number] [facility] Comment on above: Result Comment: Ve rified by repeat analysis Performed By: #### O SMO ####[facility] Vgpelxwgrw[address] [place], [place] [address]Dr. Aiarm Deuce CBC AUTO DIFFon 02-22-2022 BASO # 0.0 103/ul Normal 0.0-0.1 [facility] Comment on above: Performed By: #### C BC ####[facility] Sthbhmowih[address] [place], [place] [address]Dr. Airam Tripathi Basophils/100 WBC (Bld) 0.4 % Normal 0.2-2.0 [facility] Comment on above: Performed By: #### C BC ####[facility] Oiledycbvj9[address] [place], [place] [address]Dr. Airam Tripathi EO # 0.2 103/ul Normal 0.0-0.7 [facility] Comment on above: Performed By: #### C BC ####[facility] Pjliyogktw[address] [place], [place] [address]Dr. Airam Tripathi Eosinophils/100 WBC (Bld) 3.9 % Normal 0.9-7.0 [facility] Comment on above: Performed By: #### C BC ####[facility] Mvwgceiboq2122 [place] [address]Dr. Airam Tripathi Erythrocyte distribution width (RBC) [Ratio] 13.9 % Normal 11.0-15.0 [facility] Comment on above: Performed By: #### C BC ####[facility] Gibwxczqkw[address] [place], [place] [address]Dr. Airam Tripathi Hematocrit (Bld) [Volume fraction] 32.7 % Critically low 36.0-48.0 [facility] Comment on above: Performed By: #### C BC ####[facility] Mmnorobter7[address] [place], [place] [address]Dr. Airam Tripathi Hemoglobin (Bld) [Mass/Vol] 10.7 g/dL Critically low 12.0-16.0 [facility] Comment on above: Performed By: #### C BC ####[facility] Itkrodmhnp[address] [place], [place] [address]Dr. Airam Tripathi IG # 0.02 10e3/ul Normal 0.00-0.03 [facility] Comment on above: Performed By: #### C BC ####[facility] Wdrlakzezx[address] [place], [place] [address]Dr. Airam Tripathi IG % 0.4 % Normal 0.0-0.5 [facility] Comment on above: Performed By: #### C BC ####[facility] Imytvtmdzd[address] [place], [place] [address]Dr. Airam Tripathi LYMPH # 1.2 103/ul Normal 1.2-3.8 [facility] Comment on above: Performed By: #### C BC ####[facility] Jbyphwsugf87[address] [place], [place] [address]Dr. Airam Tripathi Lymphocytes/100 WBC (Bld) 25.0 % Normal 20.5-60.0 [facility] Comment on above: Performed By: #### C BC ####[facility] Nfsykybkps[address] [place], [place] [address]Dr. Airam Deuce MANUAL DIFF REQ NO Normal [facility] Comment on above: Performed By: #### C BC ####[facility] Zxmicpjotb77[address] [place] [id number]. Airam Deuce MCH (RBC) [Entitic mass] 30.7 pg Normal 26.7-34.0 [facility] Comment on above: Performed By: #### C BC ####[facility] Sjyhlhapep4156 [place] [address]Dr. Airam Tripathi MCHC (RBC) [Mass/Vol] 32.7 g/dL Normal 29.9-35.2 [facility] Comment on above: Performed By: #### C BC ####[facility] Vocijzcfvl[address] [place], [place] [address]Dr. Airam Tripathi MCV (RBC) [Entitic vol] 93.7 fL Normal 81.0-99.0 [facility] Comment on above: Performed By: #### C BC ####[facility] Odiyudyxwn[address] [place], [place] [address]Dr. Airam Tripathi MONO # 0.4 103/ul Normal 0.3-0.8 [facility] Comment on above: Performed By: #### C BC ####[facility] Xsczkppgfw[address] [place], [place] [address]Dr. Airam Tripathi Monocytes/100 WBC (Bld) 7.5 % Normal 1.7-12.0 [facility] Comment on above: Performed By: #### C BC ####[facility] Dgzfowxvyf[address] [place], [place] [address]Dr. Airam Tripathi NEUT # 3.1 103/ul Normal 1.4-6.5 [facility] Comment on above: Performed By: #### C BC ####[facility] Fjccbfzqhp[address] [place], [place] [address]DrKianna Tripathi Neutrophils/100 WBC (Bld) 62.8 % Normal 43.0-75.0 [facility] Comment on above: Performed By: #### C BC ####[facility] Ravlqdhzfa[address] [place], [place] [address]DrKianna Tripathi Platelet mean volume (Bld) [Entitic vol] 9.5 fL Normal 9.5-13.5 [facility] Comment on above: Performed By: #### C BC ####[facility] Egojbtqjwk25[address] [place] [address]Dr. Selenaneil Deuce PLT 250 103/ul Normal 150-450 [facility] Comment on above: Performed By: #### C BC ####[facility] Xlsskvzhjz4653 [place] [id number]. Selenaneil Deuce RBC 3.49 106/ul Critically low 4.20-5.40 [facility] Comment on above: Performed By: #### C BC ####[facility] Unnutiveum[address] [place] [id number]. Selenaneil Deuce WBC 4.9 103/ul Normal 4.0-11.0 [facility] Comment on above: Performed By: #### C BC ####[facility] Wdmaixbrbe2084 [place] [address]Dr. Airam Tripathi PROF 14(COMP METB)on 022 Albumin [Mass/Vol] 3.3 g/dL Critically low 3.4-5.0 [facility] Comment on above: Performed By: #### C MP ####[facility] Cjbzsqkxtb46[address] [place] [address]Dr. Airam Tripathi Albumin/Globulin [Mass ratio] 1.0 {ratio} Normal [facility] Comment on above: Performed By: #### C MP ####[facility] Umflwwuzfh[address] [place] [address]Dr. Airam Tripathi ALP [Catalytic activity/Vol] 127 U/L Critically high 46-116 [facility] Comment on above: Performed By: #### C MP ####[facility] Waqabilbqc[address] [place] [id number]. Airam Tripathi ALT [Catalytic activity/Vol] 22 U/L Normal 14-59 [facility] Comment on above: Performed By: #### C MP ####[facility] Eatshxkuis4974 [place] [phone]. Airam Tripathi Anion gap [Moles/Vol] 11.9 mmol/L Normal [facility] Comment on above: Performed By: #### C MP ####[facility] Qtrxjethcf3855 [place] [phone]. Airam Tripathi AST [Catalytic activity/Vol] 21 U/L Normal 15-37 [facility] Comment on above: Performed By: #### C MP ####[facility] Lgiuofgiyo38[address] [place] [id number]. Airam Tripathi Bilirubin [Mass/Vol] 0.3 mg/dL Normal 0.2-1.0 [facility] Comment on above: Performed By: #### C MP ####[facility] Bhxqcdpjeh7239 [place] [phone]. Airam Tripathi Calcium [Mass/Vol] 8.6 mg/dL Normal 8.5-10.1 [facility] Comment on above: Performed By: #### C MP ####[facility] Pxkshetlou[address] [place], [place] [address]Dr. Airam Tripathi Chloride [Moles/Vol] 105 mmol/L Normal 98-107 [facility] Comment on above: Performed By: #### C MP ####[facility] Mfpzjjzkwl[address] [place], [place] [address]Dr. Airam Tripathi CO2 [Moles/Vol] 23.6 mmol/L Normal 21.0-32.0 [facility] Comment on above: Performed By: #### C MP ####[facility] Sisirncbpd86[address] [place] [phone]. Airam Tripathi Creatinine [Mass/Vol] 1.29 mg/dL Critically high 0.55-1.02 [facility] Comment on above: Performed By: #### C MP ####[facility] Ovncfujtvz5871 [place] [phone]. Airam Deuce EGFR-AF MALAGASY 51 mL/min/1.73m2 Critically low >=60 [facility] Comment on above: Performed By: #### C MP ####[facility] Jytztnvqqf7143 [place] [phone]. Selenaneil Deuce EGFR-NON AF MALAGASY 42 mL/min/1.73m2 Critically low >=60 [facility] Comment on above: Performed By: #### C MP ####[facility] Chzrzawfex20[address] [place] [address]Dr. Airam Tripathi Globulin (S) [Mass/Vol] 3.2 g/dL Normal [facility] Comment on above: Performed By: #### C MP ####[facility] Prfraayseg7653 [place] [address]Dr. Airam Tripathi Glucose [Mass/Vol] 94 mg/dL Normal 74-106 [facility] Comment on above: Performed By: #### C MP ####[facility] Htamsyrvir3965 [place] [address]Dr. Airam Deuce Potassium [Moles/Vol] 3.5 mmol/L Normal 3.5-5.1 [facility] Comment on above: Performed By: #### C MP ####[facility] [address]vjahanxwn[address] [place], [place] [address]Dr. Airam Deuce Protein [Mass/Vol] 6.5 g/dL Normal 6.4-8.2 [facility] Comment on above: Performed By: #### C MP ####[facility] Kynmimixyu[address] [place], [place] [address]Dr. Airam Deuce Sodium [Moles/Vol] 137 mmol/L Normal 136-145 [facility] Comment on above: Performed By: #### C MP ####[facility] Mcusynkpws[address] [place], [place] [address]Dr. Airam Deuce Urea nitrogen [Mass/Vol] 37.0 mg/dL Critically high 7.0-18.0 [facility] Comment on above: Performed By: #### C MP ####[facility] Jdcagenwey8205 [place] [address]Dr. Airam Deuce Urea nitrogen/Creatinine [Mass ratio] 28.7 mg/mg Normal [facility] Comment on above: Performed By: #### C MP ####[facility] Lvvpruidza7486 [place] [address]Dr. Airam Deuce OSMOLALITYon 02-20-2022 Osmolality [Osmolality] 283 mosm/kg Normal 275-295 [facility] Comment on above: Performed By: #### O SMO ####[facility] Gbbnasytnc69[address] [place] [address]Dr. Airam Tripathi CBC AUTO DIFFon 02-17-2022 BASO # 0.0 103/ul Normal 0.0-0.1 [facility] Comment on above: Performed By: #### C BC ####[facility] [address]bxsfqvth[address] [place], [place] [address]Dr. Selenaneil Tripathi Basophils/100 WBC (Bld) 0.3 % Normal 0.2-2.0 [facility] Comment on above: Performed By: #### C BC ####[facility] Cssbwyjktb[address] [place], [place] [address]Dr. Selenaneil Tripathi EO # 0.1 103/ul Normal 0.0-0.7 [facility] Comment on above: Performed By: #### C BC ####[facility] Wvgbyewess[address] [place], [place] [address]Dr. Airam Tripathi Eosinophils/100 WBC (Bld) 1.6 % Normal 0.9-7.0 [facility] Comment on above: Performed By: #### C BC ####[facility] Dzgurrmbey[address] [place], [place] [address]Dr. Airam Tripathi Erythrocyte distribution width (RBC) [Ratio] 13.4 % Normal 11.0-15.0 [facility] Comment on above: Performed By: #### C BC ####[facility] Axygexdliu[address] [place], [place] [address]Dr. Airam Tripathi Hematocrit (Bld) [Volume fraction] 31.4 % Critically low 36.0-48.0 [facility] Comment on above: Performed By: #### C BC ####[facility] Upmzwqacvh[address] [place], [place] [address]Dr. Airam Tripathi Hemoglobin (Bld) [Mass/Vol] 10.0 g/dL Critically low 12.0-16.0 [facility] Comment on above: Performed By: #### C BC ####[facility] Ddiotowgys[address] [place], [place] [address]Dr. Airam Tripathi IG # 0.03 10e3/ul Normal 0.00-0.03 [facility] Comment on above: Performed By: #### C BC ####[facility] Ufbdlyzbha[address] [place] [address]DrKianna Airam Tripathi IG % 0.4 % Normal 0.0-0.5 [facility] Comment on above: Performed By: #### C BC ####[facility] Zmqeqrtrtg[address] [place], [place] [address]DrKianna Airam Tripathi LYMPH # 1.6 103/ul Normal 1.2-3.8 [facility] Comment on above: Performed By: #### C BC ####[facility] Fzsmeiphgh[address] [place], [place] [address]DrKianna Airam Tripathi Lymphocytes/100 WBC (Bld) 24.5 % Normal 20.5-60.0 [facility] Comment on above: Performed By: #### C BC ####[facility] Jfiarrdurn[address] [place], [place] [address]DrKianna Airam Tripathi MANUAL DIFF REQ NO Normal [facility] Comment on above: Performed By: #### C BC ####[facility] Vycifkqkwl[address] [place], [place] [address]DrKianna Airam Tripathi MCH (RBC) [Entitic mass] 30.2 pg Normal 26.7-34.0 [facility] Comment on above: Performed By: #### C BC ####[facility] Rcwezlaokl[address] [place], [place] [address]DrKianna Airam Tripathi MCHC (RBC) [Mass/Vol] 31.8 g/dL Normal 29.9-35.2 [facility] Comment on above: Performed By: #### C BC ####[facility] Zxasnqljch[address] [place], [place] [address]DrKianna Airam Tripathi MCV (RBC) [Entitic vol] 94.9 fL Normal 81.0-99.0 [facility] Comment on above: Performed By: #### C BC ####[facility] Gsjxpfyur[address] [place], [place] [address]DrKianna Airam Deuce MONO # 0.4 103/ul Normal 0.3-0.8 [facility] Comment on above: Performed By: #### C BC ####[facility] Buywcvukoi[address] [place] [address]Dr. Airam Tripathi Monocytes/100 WBC (Bld) 5.8 % Normal 1.7-12.0 [facility] Comment on above: Performed By: #### C BC ####[facility] Bdpcezryge40[address] [place] [id number]. Airam Tripathi NEUT # 4.5 103/ul Normal 1.4-6.5 [facility] Comment on above: Performed By: #### C BC ####[facility] Lzrnmwxbah1672 [place] [address]Dr. Airam Tripathi Neutrophils/100 WBC (Bld) 67.4 % Normal 43.0-75.0 [facility] Comment on above: Performed By: #### C BC ####[facility] Bpoibdmxbv7734 [place] [address]Dr. Airam Tripathi Platelet mean volume (Bld) [Entitic vol] 9.6 fL Normal 9.5-13.5 [facility] Comment on above: Performed By: #### C BC ####[facility] Ncsrgoqcse37[address] [place] [address]Dr. Airam Tripathi PLT 251 103/ul Normal 150-450 [facility] Comment on above: Performed By: #### C BC ####[facility] Zafywsqmbo8[address] [place] [address]Dr. Airam Tripathi RBC 3.31 106/ul Critically low 4.20-5.40 [facility] Comment on above: Performed By: #### C BC ####[facility] Nilyuqybba69[address] [place] [id number]. Airam Tripathi WBC 6.7 103/ul Normal 4.0-11.0 [facility] Comment on above: Performed By: #### C BC ####[facility] Pzekavkate[address] [place] [address]Dr. Selenaneil Tripathi PROF 14(COMP METB)on 022 Albumin [Mass/Vol] 3.5 g/dL Normal 3.4-5.0 [facility] Comment on above: Performed By: #### C MP ####[facility] Ggmnckknaz[address] [place] [address]Dr. Airam Tripathi Albumin/Globulin [Mass ratio] 1.2 {ratio} Normal [facility] Comment on above: Performed By: #### C MP ####[facility] Phqkarurwz8319 [place] [address]Dr. Airam Tripathi ALP [Catalytic activity/Vol] 130 U/L Critically high 46-116 [facility] Comment on above: Performed By: #### C MP ####[facility] Tqstzkgtck[address] [place], [place] [address]Dr. Airam Tripathi ALT [Catalytic activity/Vol] 18 U/L Normal 14-59 [facility] Comment on above: Performed By: #### C MP ####[facility] Djmrqvumep[address] [place], [place] [address]Dr. Airam Tripathi Anion gap [Moles/Vol] 14.0 mmol/L Normal [facility] Comment on above: Performed By: #### C MP ####[facility] Panslmeuso46[address] [place], [place] [address]Dr. Airam Tripathi AST [Catalytic activity/Vol] 20 U/L Normal 15-37 [facility] Comment on above: Performed By: #### C MP ####[facility] Senrfpzqqm[address] [place], [place] [address]Dr. Airam Tripathi Bilirubin [Mass/Vol] 0.3 mg/dL Normal 0.2-1.0 [facility] Comment on above: Performed By: #### C MP ####[facility] Xbjqjnqyoa[address] [place], [place] [address]Dr. Airam Tripathi Calcium [Mass/Vol] 8.5 mg/dL Normal 8.5-10.1 [facility] Comment on above: Performed By: #### C MP ####[facility] Xbiumvwwfo[address] [place], [place] [address]Dr. Airam Tripathi Chloride [Moles/Vol] 100 mmol/L Normal 98-107 [facility] Comment on above: Performed By: #### C MP ####[facility] Rwztvefxfg3[address] [place] [id number]. Airam Tripathi CO2 [Moles/Vol] 22.7 mmol/L Normal 21.0-32.0 [facility] Comment on above: Performed By: #### C MP ####[facility] Yzbpgyztbc8828 [place] [address]Dr. Airam Tripathi Creatinine [Mass/Vol] 1.28 mg/dL Critically high 0.55-1.02 [facility] Comment on above: Performed By: #### C MP ####[facility] Kjlsulmaxu15[address] [place] [id number]. Airam Tripathi EGFR-AF MALAGASY 52 mL/min/1.73m2 Critically low >=60 [facility] Comment on above: Performed By: #### C MP ####[facility] Lbizawztlm[address] [place], [place] [address]Dr. Airam Tripathi EGFR-NON AF MALAGASY 43 mL/min/1.73m2 Critically low >=60 [facility] Comment on above: Performed By: #### C MP ####[facility] Ipqdctpwua4679 [place] [address]Dr. Airam Tripathi Globulin (S) [Mass/Vol] 2.9 g/dL Normal [facility] Comment on above: Performed By: #### C MP ####[facility] Xwvyrcbtfp8060 [place] [address]Dr. Airam Tripathi Glucose [Mass/Vol] 93 mg/dL Normal 74-106 [facility] Comment on above: Performed By: #### C MP ####[facility] Vlqyfjgbvh4034 [place] [id number]. Airam Tripathi Potassium [Moles/Vol] 3.7 mmol/L Normal 3.5-5.1 [facility] Comment on above: Performed By: #### C MP ####[facility] Otjwkfmxgs2247 [place] [address]Dr. Airam Tripathi Protein [Mass/Vol] 6.4 g/dL Normal 6.4-8.2 [facility] Comment on above: Performed By: #### C MP ####[facility] Tvuavykffz3450 [place] [address]Dr. Airam Tripathi Sodium [Moles/Vol] 133 mmol/L Critically low 136-145 [facility] Comment on above: Performed By: #### C MP ####[facility] Vlbgejrfwc[address] [place], [place] [address]Dr. iAram Deuce Urea nitrogen [Mass/Vol] 44.0 mg/dL Critically high 7.0-18.0 [facility] Comment on above: Performed By: #### C MP ####[facility] Ocurgzfudg92[address] [place], [place] [address]Dr. Airam Tripathi Urea nitrogen/Creatinine [Mass ratio] 34.4 mg/mg Normal [facility] Comment on above: Performed By: #### C MP ####[facility] Ktopfzknmv[address] [place], [place] [address]Dr. Airam Deuce OSMOLALITYon 02-10-2022 Osmolality [Osmolality] 288 mosm/kg Normal 275-295 [facility] Comment on above: Performed By: #### O SMO ####[facility] Ifqqdlcjyd[address] [place], [place] [address]Dr. Airam Deuce CBC AUTO DIFFon 02-08-2022 BASO # 0.0 103/ul Normal 0.0-0.1 [facility] Comment on above: Performed By: #### C BC ####[facility] Mxdzrpeubo6[address] [place], [place] [address]Dr. Airam Deuce Basophils/100 WBC (Bld) 0.3 % Normal 0.2-2.0 [facility] Comment on above: Performed By: #### C BC ####[facility] Vhagfbvchi[address] [place], [place] [address]Dr. Airam Deuce EO # 0.2 103/ul Normal 0.0-0.7 [facility] Comment on above: Performed By: #### C BC ####[facility] Vqicgztbok[address] [place], [place] [address]Dr. Selenaneil Tripathi Eosinophils/100 WBC (Bld) 2.1 % Normal 0.9-7.0 [facility] Comment on above: Performed By: #### C BC ####[facility] Zarvswtlqo9520 [place] [address]Dr. Airam Tripathi Erythrocyte distribution width (RBC) [Ratio] 13.4 % Normal 11.0-15.0 [facility] Comment on above: Performed By: #### C BC ####[facility] Acsabynhpp[address] [place], [place] [address]Dr. Airam Tripathi Hematocrit (Bld) [Volume fraction] 35.1 % Critically low 36.0-48.0 [facility] Comment on above: Performed By: #### C BC ####[facility] Phyuvosiwd75[address] [place], [place] [address]Dr. Airam Tripathi Hemoglobin (Bld) [Mass/Vol] 10.9 g/dL Critically low 12.0-16.0 [facility] Comment on above: Performed By: #### C BC ####[facility] Xgbqdmvysj[address] [place], [place] [address]Dr. Airam Tripathi IG # 0.03 10e3/ul Normal 0.00-0.03 [facility] Comment on above: Performed By: #### C BC ####[facility] Qyfkovsffq[address] [place], [place] [address]Dr. Airam Tripathi IG % 0.3 % Normal 0.0-0.5 [facility] Comment on above: Performed By: #### C BC ####[facility] Yubjtyzdyr[address] [place], [place] [address]Dr. Airam Tripathi LYMPH # 1.3 103/ul Normal 1.2-3.8 [facility] Comment on above: Performed By: #### C BC ####[facility] Smwvanfabc[address] [place], [place] [address]Dr. Airam Tripathi Lymphocytes/100 WBC (Bld) 13.1 % Critically low 20.5-60.0 [facility] Comment on above: Performed By: #### C BC ####[facility] Byqbhlqlhf[address] [place], [place] [address]Dr. Airam Deuce MANUAL DIFF REQ NO Normal [facility] Comment on above: Performed By: #### C BC ####[facility] Shbntxhqsy[address] [place] [address]Dr. Airam Deuce MCH (RBC) [Entitic mass] 30.4 pg Normal 26.7-34.0 [facility] Comment on above: Performed By: #### C BC ####[facility] Uqdoqfijgd6557 [place] [address]Dr. Airam Tripathi MCHC (RBC) [Mass/Vol] 31.1 g/dL Normal 29.9-35.2 [facility] Comment on above: Performed By: #### C BC ####[facility] Gpnfdhvwah9359 [place] [address]DrKianna Tripathi MCV (RBC) [Entitic vol] 98.0 fL Normal 81.0-99.0 [facility] Comment on above: Performed By: #### C BC ####[facility] Wnqxecbuuh[address] [place], [place] [address]DrKianna Tripathi MONO # 0.5 103/ul Normal 0.3-0.8 [facility] Comment on above: Performed By: #### C BC ####[facility] Zownvfpgaq[address] [place], [place] [address]Dr. Airam Tripathi Monocytes/100 WBC (Bld) 4.7 % Normal 1.7-12.0 [facility] Comment on above: Performed By: #### C BC ####[facility] Gqpznavqlg[address] [place], [place] [address]DrKianna Tripathi NEUT # 7.7 103/ul Critically high 1.4-6.5 [facility] Comment on above: Performed By: #### C BC ####[facility] Swnikjsnog[address] [place], [place] [address]DrKianna Tripatih Neutrophils/100 WBC (Bld) 79.5 % Critically high 43.0-75.0 [facility] Comment on above: Performed By: #### C BC ####[facility] Rmsxvpncaw[address] [place], [place] [address]DrKianna Tripathi Platelet mean volume (Bld) [Entitic vol] 9.6 fL Normal 9.5-13.5 [facility] Comment on above: Performed By: #### C BC ####[facility] Lfoxmgztqp2365 [place] [address]Dr. Airam Tripathi PLT 268 103/ul Normal 150-450 [facility] Comment on above: Performed By: #### C BC ####[facility] Snvbqbvndr4554 [place] [id number]. Airam Tripathi RBC 3.58 106/ul Critically low 4.20-5.40 [facility] Comment on above: Performed By: #### C BC ####[facility] Eqxnxcdpjb4879 [place] [address]Dr. Airam Tripathi WBC 9.7 103/ul Normal 4.0-11.0 [facility] Comment on above: Performed By: #### C BC ####[facility] Txdqflgunt2762 [place] [address]DrKianna Tripathi PROF 14(COMP METB)on 022 Albumin [Mass/Vol] 3.6 g/dL Normal 3.4-5.0 [facility] Comment on above: Performed By: #### C MP ####[facility] Qelmhrmnsv0865 [place] [address]DrKianna Tripathi Albumin/Globulin [Mass ratio] 1.1 {ratio} Normal [facility] Comment on above: Performed By: #### C MP ####[facility] Wkprsdymff7761 [place] [address]Dr. Airam Tripathi ALP [Catalytic activity/Vol] 131 U/L Critically high 46-116 [facility] Comment on above: Performed By: #### C MP ####[facility] Yubnmoxhiz3063 [place] [address]DrKianna Tripathi ALT [Catalytic activity/Vol] 22 U/L Normal 14-59 [facility] Comment on above: Performed By: #### C MP ####[facility] Ndcxxolhfp5462 [place] [phone] Tripathi Anion gap [Moles/Vol] 13.3 mmol/L Normal [facility] Comment on above: Performed By: #### C MP ####[facility] Qbefobmkbn4485 [place] [phone]. Airam Tripathi AST [Catalytic activity/Vol] 23 U/L Normal 15-37 [facility] Comment on above: Performed By: #### C MP ####[facility] Igmjfpqtym6949 [place] [id number]. Airam Tripathi Bilirubin [Mass/Vol] 0.3 mg/dL Normal 0.2-1.0 [facility] Comment on above: Performed By: #### C MP ####[facility] Juemscvmts9472 [place] [phone]. Airam Tripathi Calcium [Mass/Vol] 8.7 mg/dL Normal 8.5-10.1 [facility] Comment on above: Performed By: #### C MP ####[facility] Vuaxhwlrjx8[address] [place], [place] [address]Dr. Airam Tripathi Chloride [Moles/Vol] 104 mmol/L Normal 98-107 [facility] Comment on above: Performed By: #### C MP ####[facility] Izvwoykqqe7028 [place] [phone]. Airam Tripathi CO2 [Moles/Vol] 22.0 mmol/L Normal 21.0-32.0 [facility] Comment on above: Performed By: #### C MP ####[facility] Ojnptcigqr7910 [place] [phone]. Airam Tripathi Creatinine [Mass/Vol] 1.20 mg/dL Critically high 0.55-1.02 [facility] Comment on above: Performed By: #### C MP ####[facility] Keziiztmgp9942 [place] [phone]. Airam Deuce EGFR-AF MALAGASY 56 mL/min/1.73m2 Critically low >=60 [facility] Comment on above: Performed By: #### C MP ####[facility] Mvxcpeubhs4982 [place] [phone]. Airam Deuce EGFR-NON AF MALAGASY 46 mL/min/1.73m2 Critically low >=60 [facility] Comment on above: Performed By: #### C MP ####[facility] Rpitcluiyl4327 [place] [address]Dr. Airam Deuce Globulin (S) [Mass/Vol] 3.2 g/dL Normal [facility] Comment on above: Performed By: #### C MP ####[facility] Nhpwrrrnyw8482 [place] [address]Dr. Selenaneil Deuce Glucose [Mass/Vol] 98 mg/dL Normal 74-106 [facility] Comment on above: Performed By: #### C MP ####[facility] Lhzonhfdde9705 [place] [address]Dr. Airam Tripathi Potassium [Moles/Vol] 4.3 mmol/L Normal 3.5-5.1 [facility] Comment on above: Performed By: #### C MP ####[facility] Rffrrnmccq5798 [place] [address]Dr. Airam Tripathi Protein [Mass/Vol] 6.8 g/dL Normal 6.4-8.2 [facility] Comment on above: Performed By: #### C MP ####[facility] Dswgjbpgoy[address] [place], [place] [address]Dr. Airam Tripathi Sodium [Moles/Vol] 135 mmol/L Critically low 136-145 [facility] Comment on above: Performed By: #### C MP ####[facility] Mqqtzqsidl8712 [place] [address]Dr. Airam Tripathi Urea nitrogen [Mass/Vol] 33.0 mg/dL Critically high 7.0-18.0 [facility] Comment on above: Performed By: #### C MP ####[facility] Oxmdqetkcq7487 [place] [address]Dr. Airam Tripathi Urea nitrogen/Creatinine [Mass ratio] 27.5 mg/mg Normal [facility] Comment on above: Performed By: #### C MP ####[facility] Uikduavagq8920 [place] [address]Dr. Airam Tripathi OSMOLALITYon 02-07-2022 Osmolality [Osmolality] 299 mosm/kg Critically high 275-295 [facility] Comment on above: Performed By: #### O SMO ####[facility] Uezttkrzfu0120 [place] [address]Dr. Airam Tripathi CBC AUTO DIFFon 02-03-2022 BASO # 0.0 103/ul Normal 0.0-0.1 [facility] Comment on above: Performed By: #### C BC ####[facility] Vkkkpgruwc[address] [place], [place] [address]Dr. Airam Tripathi Basophils/100 WBC (Bld) 0.4 % Normal 0.2-2.0 [facility] Comment on above: Performed By: #### C BC ####[facility] Yuypaufiob[address] [place], [place] [address]Dr. Airam Tripathi EO # 0.3 103/ul Normal 0.0-0.7 [facility] Comment on above: Performed By: #### C BC ####[facility] Ydbxeirilh024[address] [place], [place] [address]Dr. Airam Tripathi Eosinophils/100 WBC (Bld) 3.6 % Normal 0.9-7.0 [facility] Comment on above: Performed By: #### C BC ####[facility] Ojdlvjblnk[address] [place], [place] [address]Dr. Airam Tripathi Erythrocyte distribution width (RBC) [Ratio] 13.2 % Normal 11.0-15.0 [facility] Comment on above: Performed By: #### C BC ####[facility] Hcxzfnbeqy20[address] [place], [place] [address]Dr. Airam Tripathi Hematocrit (Bld) [Volume fraction] 32.0 % Critically low 36.0-48.0 [facility] Comment on above: Performed By: #### C BC ####[facility] Ynnotbvqqz[address] [place], [place] [address]Dr. Airam Tripathi Hemoglobin (Bld) [Mass/Vol] 9.8 g/dL Critically low 12.0-16.0 [facility] Comment on above: Performed By: #### C BC ####[facility] Nndefwythi[address] [place], [place] [address]Dr. Airam Tripathi IG # 0.03 10e3/ul Normal 0.00-0.03 [facility] Comment on above: Performed By: #### C BC ####[facility] Ghmmtzdkim3540 [place] [address]DrKianna Airam Tripathi IG % 0.4 % Normal 0.0-0.5 [facility] Comment on above: Performed By: #### C BC ####[facility] Zthmtimhgs3525 [place] [address]DrKianna Airam Deuce LYMPH # 1.7 103/ul Normal 1.2-3.8 [facility] Comment on above: Performed By: #### C BC ####[facility] Kpsslriwkt[address] [place], [place] [address]DrKianna Airam Deuce Lymphocytes/100 WBC (Bld) 24.8 % Normal 20.5-60.0 [facility] Comment on above: Performed By: #### C BC ####[facility] Tghcyimtbj[address] [place], [place] [address]DrKianna Airam Deuce MANUAL DIFF REQ NO Normal [facility] Comment on above: Performed By: #### C BC ####[facility] Jcluhagozj[address] [place], [place] [address]DrKianna Airam Deuce MCH (RBC) [Entitic mass] 29.6 pg Normal 26.7-34.0 [facility] Comment on above: Performed By: #### C BC ####[facility] Bgxwgohgup[address] [place], [place] [address]DrKianna Airam Deuce MCHC (RBC) [Mass/Vol] 30.6 g/dL Normal 29.9-35.2 [facility] Comment on above: Performed By: #### C BC ####[facility] Jbadktbnas7144 [place] [address]DrKianna Airam Deuce MCV (RBC) [Entitic vol] 96.7 fL Normal 81.0-99.0 [facility] Comment on above: Performed By: #### C BC ####[facility] P[address]nggg[address] [place], [place] [address]DrKianna Tripathi MONO # 0.4 103/ul Normal 0.3-0.8 [facility] Comment on above: Performed By: #### C BC ####[facility] Rjrlzfxzwa1568 [place] [address]Dr. Airam Tripathi Monocytes/100 WBC (Bld) 6.3 % Normal 1.7-12.0 [facility] Comment on above: Performed By: #### C BC ####[facility] Stxvbwhbbi7640 [place] [address]Dr. Airam Tripathi NEUT # 4.5 103/ul Normal 1.4-6.5 [facility] Comment on above: Performed By: #### C BC ####[facility] Qkvwihzmar0951 [place] [address]Dr. Airam Tripathi Neutrophils/100 WBC (Bld) 64.5 % Normal 43.0-75.0 [facility] Comment on above: Performed By: #### C BC ####[facility] Xyzrkiojqb7505 [place] [address]Dr. Airam Tripathi Platelet mean volume (Bld) [Entitic vol] 9.3 fL Critically low 9.5-13.5 [facility] Comment on above: Performed By: #### C BC ####[facility] Tyougeewdq[address] [place], [place] [address]Dr. Airam Tripathi PLT 243 103/ul Normal 150-450 [facility] Comment on above: Performed By: #### C BC ####[facility] Pdhjgjyizx9073 [place] [address]Dr. Airam Tripathi RBC 3.31 106/ul Critically low 4.20-5.40 [facility] Comment on above: Performed By: #### C BC ####[facility] Vyyrwuxcfk3052 [place] [address]Dr. Airam Tripathi WBC 7.0 103/ul Normal 4.0-11.0 [facility] Comment on above: Performed By: #### C BC ####[facility] Gnahidhtdw0302 [place] [address]DrKianna Tripathi PROF 14(COMP METB)on 022 Albumin [Mass/Vol] 3.3 g/dL Critically low 3.4-5.0 [facility] Comment on above: Performed By: #### C MP ####[facility] Snlxyjhstc9189 [place] [address]Dr. Selenaneil Deuce Albumin/Globulin [Mass ratio] 1.1 {ratio} Normal [facility] Comment on above: Performed By: #### C MP ####[facility] Xxlqtqyayi2595 [place] [address]Dr. Airam Tripathi ALP [Catalytic activity/Vol] 126 U/L Critically high 46-116 [facility] Comment on above: Performed By: #### C MP ####[facility] Ywd[address]vofqrx[address] [place], [place] [address]Dr. Airam Tripathi ALT [Catalytic activity/Vol] 21 U/L Normal 14-59 [facility] Comment on above: Performed By: #### C MP ####[facility] Zuinpzgepy[address] [place], [place] [address]Dr. Airam Tripathi Anion gap [Moles/Vol] 11.8 mmol/L Normal [facility] Comment on above: Performed By: #### C MP ####[facility] Ewpuknqvog[address] [place], [place] [address]Dr. Airam Tripathi AST [Catalytic activity/Vol] 22 U/L Normal 15-37 [facility] Comment on above: Performed By: #### C MP ####[facility] [address]pwyaelaiv[address] [place] [address]Dr. Airam Tripathi Bilirubin [Mass/Vol] 0.3 mg/dL Normal 0.2-1.0 [facility] Comment on above: Performed By: #### C MP ####[facility] Jfbwtqopoc[address] [place], [place] [address]Dr. Airam Tripathi Calcium [Mass/Vol] 8.7 mg/dL Normal 8.5-10.1 [facility] Comment on above: Performed By: #### C MP ####[facility] Sfwnthzofr[address] [place], [place] [address]Dr. Airam Tripathi Chloride [Moles/Vol] 102 mmol/L Normal 98-107 [facility] Comment on above: Performed By: #### C MP ####[facility] Wttxodnq[address] [place] [id number]. Airam Tripathi CO2 [Moles/Vol] 25.5 mmol/L Normal 21.0-32.0 [facility] Comment on above: Performed By: #### C MP ####[facility] Pnghynogfu[address] [place] [id number]. Airam Deuce Creatinine [Mass/Vol] 1.43 mg/dL Critically high 0.55-1.02 [facility] Comment on above: Performed By: #### C MP ####[facility] Wjvviyxzlz[address] [place] [address]Dr. Airam Tripathi EGFR-AF MALAGASY 46 mL/min/1.73m2 Critically low >=60 [facility] Comment on above: Performed By: #### C MP ####[facility] Oramsxxhhn[address] [place] [address]Dr. Airam Deuce EGFR-NON AF MALAGASY 38 mL/min/1.73m2 Critically low >=60 [facility] Comment on above: Performed By: #### C MP ####[facility] Mgkxyrctvg4[address] [place] [address]Dr. Airam Deuce Globulin (S) [Mass/Vol] 2.9 g/dL Normal [facility] Comment on above: Performed By: #### C MP ####[facility] Viforgojuf[address] [place] [address]Dr. Airam Deuce Glucose [Mass/Vol] 83 mg/dL Normal 74-106 [facility] Comment on above: Performed By: #### C MP ####[facility] Hzpfohlsfu70[address] [place] [id number]. Airam Deuce Potassium [Moles/Vol] 4.3 mmol/L Normal 3.5-5.1 [facility] Comment on above: Performed By: #### C MP ####[facility] Xudtszsdsg023[address] [place] [id number]. Selenaneil Tripathi Protein [Mass/Vol] 6.2 g/dL Critically low 6.4-8.2 [facility] Comment on above: Performed By: #### C MP ####[facility] Vevosriwxn[address] [place], [place] [address]Dr. Airam Tripathi Sodium [Moles/Vol] 135 mmol/L Critically low 136-145 [facility] Comment on above: Performed By: #### C MP ####[facility] Moknpadthb[address] [place], [place] [address]Dr. Airam Tripathi Urea nitrogen [Mass/Vol] 39.0 mg/dL Critically high 7.0-18.0 [facility] Comment on above: Performed By: #### C MP ####[facility] Xpgoabicij[address] [place], [place] [address]Dr. Airam Tripathi Urea nitrogen/Creatinine [Mass ratio] 27.3 mg/mg Normal [facility] Comment on above: Performed By: #### C MP ####[facility] Gghmfzgdyc[address] [place], [place] [address]DrKianna Tripathi OSMOLALITYon 02-02-2022 Osmolality [Osmolality] 292 mosm/kg Normal 275-295 [facility] Comment on above: Performed By: #### O SMO ####[facility] Ijzirkzmrp[address] [place], [place] [address]Dr. Airam Tripathi CBC AUTO DIFFon 01-27-2022 BASO # 0.0 103/ul Normal 0.0-0.1 [facility] Comment on above: Performed By: #### C BC ####[facility] Azgackovku[address] [place], [place] [address]Dr. Airam Tripathi Basophils/100 WBC (Bld) 0.4 % Normal 0.2-2.0 [facility] Comment on above: Performed By: #### C BC ####[facility] Btmkhtcckq[address] [place], [place] [address]DrKianna Tripathi EO # 0.2 103/ul Normal 0.0-0.7 [facility] Comment on above: Performed By: #### C BC ####[facility] Bgfxcsahua[address] [place], [place] [address]Dr. Airam Tripathi Eosinophils/100 WBC (Bld) 3.4 % Normal 0.9-7.0 [facility] Comment on above: Performed By: #### C BC ####[facility] Xlkitsdshy15[address] [place], [place] [address]DrKianna Tripathi Erythrocyte distribution width (RBC) [Ratio] 13.1 % Normal 11.0-15.0 [facility] Comment on above: Performed By: #### C BC ####[facility] Pkxaujejgk[address] [place], [place] [address]DrKianna Tripathi Hematocrit (Bld) [Volume fraction] 31.6 % Critically low 36.0-48.0 [facility] Comment on above: Performed By: #### C BC ####[facility] Cajztqbthm[address] [place], [place] [address]DrKianna Tripathi Hemoglobin (Bld) [Mass/Vol] 9.9 g/dL Critically low 12.0-16.0 [facility] Comment on above: Performed By: #### C BC ####[facility] Eulytgoxsb60[address] [place], [place] [address]Dr. Airam Tripathi IG # 0.02 10e3/ul Normal 0.00-0.03 [facility] Comment on above: Performed By: #### C BC ####[facility] Vihwycvdjc[address] [place], [place] [address]DrKianna Tripathi IG % 0.4 % Normal 0.0-0.5 [facility] Comment on above: Performed By: #### C BC ####[facility] Piiqwovajs[address] [place], [place] [address]DrKianna Tripathi LYMPH # 1.0 103/ul Critically low 1.2-3.8 [facility] Comment on above: Performed By: #### C BC ####[facility] Zuazlbldyp7[address] [place], [place] [address]DrKianna Tripathi Lymphocytes/100 WBC (Bld) 17.4 % Critically low 20.5-60.0 [facility] Comment on above: Performed By: #### C BC ####[facility] Tpgacqcxmk6799[address] [place], [place] [address]DrKianna Tripathi MANUAL DIFF REQ NO Normal [facility] Comment on above: Performed By: #### C BC ####[facility] Acmtfpahba[address] [place] [address]DrKianna Tripathi MCH (RBC) [Entitic mass] 30.1 pg Normal 26.7-34.0 [facility] Comment on above: Performed By: #### C BC ####[facility] Dmotcduvod7850 [place] [address]DrKianna Tripathi MCHC (RBC) [Mass/Vol] 31.3 g/dL Normal 29.9-35.2 [facility] Comment on above: Performed By: #### C BC ####[facility] Lmnyjfrpvn8[address] [place], [place] [address]DrKianna Tripathi MCV (RBC) [Entitic vol] 96.0 fL Normal 81.0-99.0 [facility] Comment on above: Performed By: #### C BC ####[facility] Pvuarysuqp6823[address] [place], [place] [address]DrKianna Tripathi MONO # 0.5 103/ul Normal 0.3-0.8 [facility] Comment on above: Performed By: #### C BC ####[facility] Tvnjynbsad[address] [place], [place] [address]DrKianna Tripathi Monocytes/100 WBC (Bld) 8.6 % Normal 1.7-12.0 [facility] Comment on above: Performed By: #### C BC ####[facility] Mmlcdasdmh150[address] [place], [place] [address]DrKianna Tripathi NEUT # 3.9 103/ul Normal 1.4-6.5 [facility] Comment on above: Performed By: #### C BC ####[facility] Zothubcamz6[address] [place], [place] [address]DrKianna Tripathi Neutrophils/100 WBC (Bld) 69.8 % Normal 43.0-75.0 [facility] Comment on above: Performed By: #### C BC ####[facility] Gmxdhuzirb30[address] [place], [place] [address]DrKianna Tripathi Platelet mean volume (Bld) [Entitic vol] 9.6 fL Normal 9.5-13.5 [facility] Comment on above: Performed By: #### C BC ####[facility] Foznorvifu[address] [place] [address]Dr. Airam Tripathi PLT 228 103/ul Normal 150-450 [facility] Comment on above: Performed By: #### C BC ####[facility] Ajnfdrdcrb0[address] [place] [address]Dr. Airam Tripathi RBC 3.29 106/ul Critically low 4.20-5.40 [facility] Comment on above: Performed By: #### C BC ####[facility] Vsrsudljmr45[address] [place] [address]Dr. Airam Tirpathi WBC 5.6 103/ul Normal 4.0-11.0 [facility] Comment on above: Performed By: #### C BC ####[facility] Okuxueqcbf4978 [place] [address]DrKianna Tripathi PROF 14(COMP METB)on 022 Albumin [Mass/Vol] 3.1 g/dL Critically low 3.4-5.0 [facility] Comment on above: Performed By: #### C MP ####[facility] Ruybatsotm8[address] [place], [place] [address]Dr. Airam Tripathi Albumin/Globulin [Mass ratio] 1.0 {ratio} Normal [facility] Comment on above: Performed By: #### C MP ####[facility] Eutukldrfr1823[address] [place], [place] [address]Dr. Airam Tripathi ALP [Catalytic activity/Vol] 131 U/L Critically high 46-116 [facility] Comment on above: Performed By: #### C MP ####[facility] Alqwtzacxl0[address] [place], [place] [address]DrKianna Tripathi ALT [Catalytic activity/Vol] 19 U/L Normal 14-59 [facility] Comment on above: Performed By: #### C MP ####[facility] Jtfpdhzllp[address] [place], [place] [address]DrKianna Tripathi Anion gap [Moles/Vol] 12.9 mmol/L Normal [facility] Comment on above: Performed By: #### C MP ####[facility] Pdvtrhqysl7520[address] [place], [place] [address]Dr. Airam Tripathi AST [Catalytic activity/Vol] 21 U/L Normal 15-37 [facility] Comment on above: Performed By: #### C MP ####[facility] Vdzxxsguym[address]12[address] [place], [place] [address]Dr. Airam Tripathi Bilirubin [Mass/Vol] 0.2 mg/dL Normal 0.2-1.0 [facility] Comment on above: Performed By: #### C MP ####[facility] Jjflcphywa[address]34[address] [place], [place] [address]Dr. Airam Tripathi Calcium [Mass/Vol] 8.4 mg/dL Critically low 8.5-10.1 [facility] Comment on above: Performed By: #### C MP ####[facility] Hmfewwguai469[address] [place], [place] [address]Dr. Airma Tripathi Chloride [Moles/Vol] 103 mmol/L Normal 98-107 [facility] Comment on above: Performed By: #### C MP ####[facility] Mcofbinyzk28[address] [place], [place] [address]Dr. Airam Tripathi CO2 [Moles/Vol] 23.7 mmol/L Normal 21.0-32.0 [facility] Comment on above: Performed By: #### C MP ####[facility] Wogivqptkv9[address] [place], [place] [address]Dr. Ariam Tripathi Creatinine [Mass/Vol] 1.37 mg/dL Critically high 0.55-1.02 [facility] Comment on above: Performed By: #### C MP ####[facility] Trwnqqnupq7[address] [place], [place] [address]Dr. Airam Tripathi EGFR-AF MALAGASY 48 mL/min/1.73m2 Critically low >=60 [facility] Comment on above: Performed By: #### C MP ####[facility] Bsiwnopbke7460[address] [place], [place] [address]Dr. Airam Tripathi EGFR-NON AF MALAGASY 39 mL/min/1.73m2 Critically low >=60 [facility] Comment on above: Performed By: #### C MP ####[facility] Yehajksdwu5[address] [place] [address]Dr. Airam Tripathi Globulin (S) [Mass/Vol] 3.1 g/dL Normal [facility] Comment on above: Performed By: #### C MP ####[facility] Grhegasfzs[address] [place] [address]Dr. Airam Tripathi Glucose [Mass/Vol] 88 mg/dL Normal 74-106 [facility] Comment on above: Performed By: #### C MP ####[facility] Qvtsteajuw065[address] [place], [place] [address]Dr. Airam Tripathi Potassium [Moles/Vol] 4.6 mmol/L Normal 3.5-5.1 [facility] Comment on above: Performed By: #### C MP ####[facility] Aplewdalgd224[address] [place], [place] [address]Dr. Airam Tripathi Protein [Mass/Vol] 6.2 g/dL Critically low 6.4-8.2 [facility] Comment on above: Performed By: #### C MP ####[facility] Kmwtomutmd355[address] [place], [place] [address]Dr. Airam Tripathi Sodium [Moles/Vol] 135 mmol/L Critically low 136-145 [facility] Comment on above: Performed By: #### C MP ####[facility] Gzdxhpahyq6917[address] [place], [place] [address]Dr. Airam Tripathi Urea nitrogen [Mass/Vol] 34.0 mg/dL Critically high 7.0-18.0 [facility] Comment on above: Performed By: #### C MP ####[facility] Zgzgiupuzv5865[address] [place], [place] [address]Dr. Airam Tripathi Urea nitrogen/Creatinine [Mass ratio] 24.8 mg/mg Normal [facility] Comment on above: Performed By: #### C MP ####[facility] Odieoegyok[address] [place], [place] [address]Dr. Airam Tripathi OSMOLALITYon 01-21-2022 Osmolality [Osmolality] 276 mosm/kg Normal 275-295 [facility] Comment on above: Performed By: #### O SMO ####[facility] B[address]qbwjpqze[address] [place] [address]Dr. Airam Tripathi MRI CSPINE WO CONon 01-21-20 22 MRI CSPINE WO CON Normal [facility] CBC AUTO DIFFon 01-19-2022 BASO # 0.0 103/ul Normal 0.0-0.1 [facility] Comment on above: Performed By: #### C BC ####[facility] Btgvsgzsfs6435[address] [place], [place] [address]Dr. Airam Tripathi Basophils/100 WBC (Bld) 0.2 % Normal 0.2-2.0 [facility] Comment on above: Performed By: #### C BC ####[facility] Bvuzqbsuli9916[address] [place], [place] [address]Dr. Airam Tripahti EO # 0.2 103/ul Normal 0.0-0.7 [facility] Comment on above: Performed By: #### C BC ####[facility] Iaqafvnonh[address] [place], [place] [address]Dr. Airam Tripathi Eosinophils/100 WBC (Bld) 2.1 % Normal 0.9-7.0 [facility] Comment on above: Performed By: #### C BC ####[facility] Jxeqhluose[address] [place], [place] [address]Dr. Airam Tripathi Erythrocyte distribution width (RBC) [Ratio] 12.7 % Normal 11.0-15.0 [facility] Comment on above: Performed By: #### C BC ####[facility] Hiwcwzdogw85[address] [place], [place] [address]Dr. Airam Tripathi Hematocrit (Bld) [Volume fraction] 32.2 % Critically low 36.0-48.0 [facility] Comment on above: Performed By: #### C BC ####[facility] Exwoqbwnju8[address] [place], [place] [address]Dr. Airam Tripathi Hemoglobin (Bld) [Mass/Vol] 10.4 g/dL Critically low 12.0-16.0 [facility] Comment on above: Performed By: #### C BC ####[facility] T[address]hrcpkl[address] [place] [id number]. Airam Tripathi IG # 0.03 10e3/ul Normal 0.00-0.03 [facility] Comment on above: Performed By: #### C BC ####[facility] Llkvouuzxd2414 [place] [id number]. Airam Tripathi IG % 0.3 % Normal 0.0-0.5 [facility] Comment on above: Performed By: #### C BC ####[facility] Vyqtpbhrgc[address] [place] [address]Dr. Airam Tripathi LYMPH # 1.4 103/ul Normal 1.2-3.8 [facility] Comment on above: Performed By: #### C BC ####[facility] Szngupyhpm2090 [place] [address]Dr. Selenaneil Tripathi Lymphocytes/100 WBC (Bld) 16.0 % Critically low 20.5-60.0 [facility] Comment on above: Performed By: #### C BC ####[facility] Nocngknazs[address] [place] [address]Dr. Airam Tripathi MANUAL DIFF REQ NO Normal [facility] Comment on above: Performed By: #### C BC ####[facility] Ecaaufzrmr9094 [place] [address]Dr. Airam Tripathi MCH (RBC) [Entitic mass] 30.0 pg Normal 26.7-34.0 [facility] Comment on above: Performed By: #### C BC ####[facility] Xdjcskkytm[address] [place], [place] [address]Dr. Airam Tripathi MCHC (RBC) [Mass/Vol] 32.3 g/dL Normal 29.9-35.2 [facility] Comment on above: Performed By: #### C BC ####[facility] Apfoianboa6[address] [place] [phone]. Airam Tripathi MCV (RBC) [Entitic vol] 92.8 fL Normal 81.0-99.0 [facility] Comment on above: Performed By: #### C BC ####[facility] Loeegnozfq[address] [place] [id number]. Airam Tripathi MONO # 0.4 103/ul Normal 0.3-0.8 [facility] Comment on above: Performed By: #### C BC ####[facility] Atytdobayu7[address] [place] [id number]. Airam Tripathi Monocytes/100 WBC (Bld) 4.9 % Normal 1.7-12.0 [facility] Comment on above: Performed By: #### C BC ####[facility] Ltnsvcilhp08[address] [place] [id number]. Airam Tripathi NEUT # 6.6 103/ul Critically high 1.4-6.5 [facility] Comment on above: Performed By: #### C BC ####[facility] Bxrzmmpqbi[address] [place], [place] [address]Dr. Airam Tripathi Neutrophils/100 WBC (Bld) 76.5 % Critically high 43.0-75.0 [facility] Comment on above: Performed By: #### C BC ####[facility] Nqxagcxdhn8346 [place] [address]Dr. Airam Tripathi Platelet mean volume (Bld) [Entitic vol] 9.8 fL Normal 9.5-13.5 [facility] Comment on above: Performed By: #### C BC ####[facility] Hernsdglwq[address] [place], [place] [address]Dr. Airam Tripathi PLT 262 103/ul Normal 150-450 [facility] Comment on above: Performed By: #### C BC ####[facility] Vztaanfnwj[address] [place], [place] [address]Dr. Airam Tripathi RBC 3.47 106/ul Critically low 4.20-5.40 [facility] Comment on above: Performed By: #### C BC ####[facility] Mkqdttaoxw[address] [place], [place] [address]Dr. Airam Tripathi WBC 8.7 103/ul Normal 4.0-11.0 [facility] Comment on above: Performed By: #### C BC ####[facility] Fpdszatdcx020[address] [place] [address]Dr. Airam Tripathi PROF 14(COMP METB)on 022 Albumin [Mass/Vol] 3.3 g/dL Critically low 3.4-5.0 [facility] Comment on above: Performed By: #### C MP ####[facility] Fdsdplquqq9[address] [place] [address]Dr. Airam Tripathi Albumin/Globulin [Mass ratio] 1.1 {ratio} Normal [facility] Comment on above: Performed By: #### C MP ####[facility] Ttrpqmucuo77[address] [place] [address]Dr. Airam Tripathi ALP [Catalytic activity/Vol] 114 U/L Normal 46-116 [facility] Comment on above: Performed By: #### C MP ####[facility] Juchmibqts[address] [place], [place] [address]Dr. Airam Tripathi ALT [Catalytic activity/Vol] 20 U/L Normal 14-59 [facility] Comment on above: Performed By: #### C MP ####[facility] Epjdbxpcer[address] [place], [place] [address]Dr. Airam Tripathi Anion gap [Moles/Vol] 14.7 mmol/L Normal [facility] Comment on above: Performed By: #### C MP ####[facility] Wnyixbpvmy0225[address] [place], [place] [address]Dr. Airam Tripathi AST [Catalytic activity/Vol] 22 U/L Normal 15-37 [facility] Comment on above: Performed By: #### C MP ####[facility] Braezfvzhp[address] [place], [place] [address]Dr. Airam Tripathi Bilirubin [Mass/Vol] 0.3 mg/dL Normal 0.2-1.0 [facility] Comment on above: Performed By: #### C MP ####[facility] Zdbjkmlqiy76[address] [place], [place] [address]Dr. Airam Tripathi Calcium [Mass/Vol] 8.8 mg/dL Normal 8.5-10.1 [facility] Comment on above: Performed By: #### C MP ####[facility] Evbskdcurf9[address] [place] [id number]. Airam Tripathi Chloride [Moles/Vol] 97 mmol/L Critically low 98-107 [facility] Comment on above: Performed By: #### C MP ####[facility] Jsxynbflyb3265 [place] [phone]. Airam Tripathi CO2 [Moles/Vol] 24.5 mmol/L Normal 21.0-32.0 [facility] Comment on above: Performed By: #### C MP ####[facility] Asuabtsdmo[address] [place], [place] [address]Dr. Airam Tripathi Creatinine [Mass/Vol] 1.28 mg/dL Critically high 0.55-1.02 [facility] Comment on above: Performed By: #### C MP ####[facility] Xmfkfpwjum[address] [place], [place] [address]Dr. Airam Tripathi EGFR-AF MALAGASY 52 mL/min/1.73m2 Critically low >=60 [facility] Comment on above: Performed By: #### C MP ####[facility] Cirxffwfkb[address] [place], [place] [address]Dr. Airam Tripathi EGFR-NON AF MALAGASY 43 mL/min/1.73m2 Critically low >=60 [facility] Comment on above: Performed By: #### C MP ####[facility] Utkzrzifia[address] [place], [place] [address]Dr. Airam Tripathi Globulin (S) [Mass/Vol] 3.1 g/dL Normal [facility] Comment on above: Performed By: #### C MP ####[facility] Cfcnhcoppa[address] [place], [place] [address]Dr. Airam Tripathi Glucose [Mass/Vol] 87 mg/dL Normal 74-106 [facility] Comment on above: Performed By: #### C MP ####[facility] Isurvfsuxd[address] [place], [place] [address]Dr. Airam Tripathi Potassium [Moles/Vol] 4.2 mmol/L Normal 3.5-5.1 [facility] Comment on above: Performed By: #### C MP ####[facility] Sycfqmdcut[address] [place] [address]Dr. Airam Tripathi Protein [Mass/Vol] 6.4 g/dL Normal 6.4-8.2 [facility] Comment on above: Performed By: #### C MP ####[facility] Gniyyxfjxs4939 [place] [address]Dr. Airam Tripathi Sodium [Moles/Vol] 132 mmol/L Critically low 136-145 [facility] Comment on above: Performed By: #### C MP ####[facility] Bcscvifoqj[address] [place], [place] [address]Dr. Airam Tripathi Urea nitrogen [Mass/Vol] 36.0 mg/dL Critically high 7.0-18.0 [facility] Comment on above: Performed By: #### C MP ####[facility] Gcghvvuyed[address] [place], [place] [address]Dr. Airam Tripathi Urea nitrogen/Creatinine [Mass ratio] 28.1 mg/mg Normal [facility] Comment on above: Performed By: #### C MP ####[facility] Yjtgsdicek10[address] [place], [place] [address]Dr. Airam Tripathi XR DEXA BONE DENSITYon 01-19 XR DEXA BONE DENSITY Normal [facility] OSMOLALITYon 01-13-2022 Osmolality [Osmolality] 277 mosm/kg Normal 275-295 [facility] Comment on above: Performed By: #### O SMO ####[facility] Dwsogdysfh[address] [place], [place] [address]Dr. Airam Tripathi CBC AUTO DIFFon 01-11-2022 BASO # 0.0 103/ul Normal 0.0-0.1 [facility] Comment on above: Performed By: #### C BC ####[facility] Qrwclosdgf[address] [place], [place] [address]Dr. Airam Tripathi Basophils/100 WBC (Bld) 0.5 % Normal 0.2-2.0 [facility] Comment on above: Performed By: #### C BC ####[facility] Ockhkfnkyk[address] [place], [place] [address]Dr. Airam Tripathi EO # 0.2 103/ul Normal 0.0-0.7 [facility] Comment on above: Performed By: #### C BC ####[facility] Imglyeqnwr4635 [place] [address]Dr. Airam Tripathi Eosinophils/100 WBC (Bld) 3.1 % Normal 0.9-7.0 [facility] Comment on above: Performed By: #### C BC ####[facility] Ykjjpwwbqf[address] [place], [place] [address]Dr. Airam Tripathi Erythrocyte distribution width (RBC) [Ratio] 12.5 % Normal 11.0-15.0 [facility] Comment on above: Performed By: #### C BC ####[facility] Wfykbfdgub[address] [place], [place] [address]Dr. Airam Tripathi Hematocrit (Bld) [Volume fraction] 34.4 % Critically low 36.0-48.0 [facility] Comment on above: Performed By: #### C BC ####[facility] Kglxweqfrv[address] [place], [place] [address]Dr. Airam Tripathi Hemoglobin (Bld) [Mass/Vol] 11.0 g/dL Critically low 12.0-16.0 [facility] Comment on above: Performed By: #### C BC ####[facility] W[address]kw[address]nn[address] [place], [place] [address]Dr. Airam Tripathi IG # 0.03 10e3/ul Normal 0.00-0.03 [facility] Comment on above: Performed By: #### C BC ####[facility] [facility] Zpesptyqqf[address] [place], [place] [address]Dr. Airam Tripathi IG % 0.5 % Normal 0.0-0.5 [facility] Comment on above: Performed By: #### C BC ####[facility] Soveaxzwty[address] [place], [place] [address]Dr. Airam Tripathi LYMPH # 1.6 103/ul Normal 1.2-3.8 [facility] Comment on above: Performed By: #### C BC ####[facility] Zocdmuzrrl[address] [place], [place] [address]Dr. Airam Tripathi Lymphocytes/100 WBC (Bld) 28.0 % Normal 20.5-60.0 [facility] Comment on above: Performed By: #### C BC ####[facility] [address]vgxmc[address] [place] [address]Dr. Airam Tripathi MANUAL DIFF REQ NO Normal [facility] Comment on above: Performed By: #### C BC ####[facility] Eqgxrpnguh8[address] [place] [address]Dr. Airam Tripathi MCH (RBC) [Entitic mass] 30.1 pg Normal 26.7-34.0 [facility] Comment on above: Performed By: #### C BC ####[facility] Nohdizuzzf[address] [place], [place] [address]Dr. Airam Tripathi MCHC (RBC) [Mass/Vol] 32.0 g/dL Normal 29.9-35.2 [facility] Comment on above: Performed By: #### C BC ####[facility] Zvrzvovive[address] [place], [place] [address]Dr. Airam Tripathi MCV (RBC) [Entitic vol] 94.0 fL Normal 81.0-99.0 [facility] Comment on above: Performed By: #### C BC ####[facility] Qhnwbcgkue[address] [place], [place] [address]DrKianna Tripathi MONO # 0.4 103/ul Normal 0.3-0.8 [facility] Comment on above: Performed By: #### C BC ####[facility] Pivmhvtapg[address] [place], [place] [address]Dr. Airam Tripathi Monocytes/100 WBC (Bld) 7.5 % Normal 1.7-12.0 [facility] Comment on above: Performed By: #### C BC ####[facility] Ahlcsvsues[address] [place], [place] [address]DrKianna Tripathi NEUT # 3.5 103/ul Normal 1.4-6.5 [facility] Comment on above: Performed By: #### C BC ####[facility] Cfzncexndy60[address] [place], [place] [address]Dr. Airam Tripathi Neutrophils/100 WBC (Bld) 60.4 % Normal 43.0-75.0 [facility] Comment on above: Performed By: #### C BC ####[facility] Vmybnljiuk[address] [place] [address]DrKianna Tripathi Platelet mean volume (Bld) [Entitic vol] 10.0 fL Normal 9.5-13.5 [facility] Comment on above: Performed By: #### C BC ####[facility] Lsynbevxkd[address] [place], [place] [address]DrKianna Tripathi PLT 300 103/ul Normal 150-450 [facility] Comment on above: Performed By: #### C BC ####[facility] Zofyxspohd49[address] [place], [place] [address]DrKianna Tripathi RBC 3.66 106/ul Critically low 4.20-5.40 [facility] Comment on above: Performed By: #### C BC ####[facility] Bpvpjjjwvw[address] [place], [place] [address]DrKianna Tripathi WBC 5.7 103/ul Normal 4.0-11.0 [facility] Comment on above: Performed By: #### C BC ####[facility] Bgklnwixke23[address] [place], [place] [address]Dr. Airam Tripathi PROF 14(COMP METB)on 022 Albumin [Mass/Vol] 3.3 g/dL Critically low 3.4-5.0 [facility] Comment on above: Performed By: #### C MP ####[facility] Xktmbcyync[address] [place], [place] [address]DrKianna Tripathi Albumin/Globulin [Mass ratio] 1.0 {ratio} Normal [facility] Comment on above: Performed By: #### C MP ####[facility] Mpdhugyhlv97[address] [place], [place] [address]DrKianna Tripathi ALP [Catalytic activity/Vol] 138 U/L Critically high 46-116 [facility] Comment on above: Performed By: #### C MP ####[facility] Bbhdxujpcp64[address] [place], [place] [address]DrKianna Tripathi ALT [Catalytic activity/Vol] 25 U/L Normal 14-59 [facility] Comment on above: Performed By: #### C MP ####[facility] V[address]blvewiql[address] [place] [address]Dr. Airam Tripathi Anion gap [Moles/Vol] 14.0 mmol/L Normal [facility] Comment on above: Performed By: #### C MP ####[facility] Nikotarbqn8715 [place] [address]Dr. Airam Tripathi AST [Catalytic activity/Vol] 19 U/L Normal 15-37 [facility] Comment on above: Performed By: #### C MP ####[facility] Qvfkcpnhmp[address] [place], [place] [address]Dr. Selenaneil Deuce Bilirubin [Mass/Vol] 0.3 mg/dL Normal 0.2-1.0 [facility] Comment on above: Performed By: #### C MP ####[facility] Wpnxcmbfuz[address] [place], [place] [address]Dr. Airam Tripathi Calcium [Mass/Vol] 8.7 mg/dL Normal 8.5-10.1 [facility] Comment on above: Performed By: #### C MP ####[facility] Kfgcdauwrp[address] [place], [place] [address]Dr. Selenaneil Tripathi Chloride [Moles/Vol] 99 mmol/L Normal 98-107 [facility] Comment on above: Performed By: #### C MP ####[facility] Aozwcjauyx84[address] [place], [place] [address]Dr. Airam Decue CO2 [Moles/Vol] 25.4 mmol/L Normal 21.0-32.0 [facility] Comment on above: Performed By: #### C MP ####[facility] Nqfdvnnfke7940[address] [place], [place] [address]Dr. Selenaneil Deuce Creatinine [Mass/Vol] 1.22 mg/dL Critically high 0.55-1.02 [facility] Comment on above: Performed By: #### C MP ####[facility] Tlpffkaclh[address] [place], [place] [address]Dr. Selenaneil Deuce EGFR-AF MALAGASY 55 mL/min/1.73m2 Critically low >=60 [facility] Comment on above: Performed By: #### C MP ####[facility] L[address]ubuujug[address] [place] [address]Dr. Airam Tripathi EGFR-NON AF MALAGASY 45 mL/min/1.73m2 Critically low >=60 [facility] Comment on above: Performed By: #### C MP ####[facility] Rwheqoprno1526 [place] [address]Dr. Airam Deuce Globulin (S) [Mass/Vol] 3.2 g/dL Normal [facility] Comment on above: Performed By: #### C MP ####[facility] Akouxgftfq4[address] [place] [address]Dr. Airam Deuce Glucose [Mass/Vol] 111 mg/dL Critically high 74-106 [facility] Comment on above: Performed By: #### C MP ####[facility] Wgumvrufhk75[address] [place] [address]Dr. Airam Deuce Potassium [Moles/Vol] 4.4 mmol/L Normal 3.5-5.1 [facility] Comment on above: Performed By: #### C MP ####[facility] Twwsfafnnm[address] [place], [place] [address]Dr. Airam Deuce Protein [Mass/Vol] 6.5 g/dL Normal 6.4-8.2 [facility] Comment on above: Performed By: #### C MP ####[facility] Ejrdlgugxb[address] [place] [address]Dr. Airam Deuce Sodium [Moles/Vol] 134 mmol/L Critically low 136-145 [facility] Comment on above: Performed By: #### C MP ####[facility] Szvmuogjkn3[address] [place], [place] [address]Dr. Airam Deuce Urea nitrogen [Mass/Vol] 27.0 mg/dL Critically high 7.0-18.0 [facility] Comment on above: Performed By: #### C MP ####[facility] Jvduivggel6[address] [place], [place] [address]Dr. Selenaneil Deuce Urea nitrogen/Creatinine [Mass ratio] 22.1 mg/mg Normal [facility] Comment on above: Performed By: #### C ####[facility] Lmojjwtwhm3668 [place], [place] [address]OzDr. Airam Tripathi CT CERVICAL SPINE WITHOUT CO NTRASTon 01-10-2022 CT CERVICAL SPINE WITHOUT CONTRAST [facility] [address] [place] [address] Patient Name: MABEL MOSER : 1960 [...] achievable. Electronically signed: Ayleen Ny. Transcribed by: [email or web address], User Resident: Electronically Signed by: AYLEEN [place] @ 01/12/2022 12:32 PM Normal [facility] OSMOLALITYon 01-07-2022 Osmolality [Osmolality] 286 mosm/kg Normal 275-295 [facility] Comment on above: Performed By: #### O SMO ####[facility] Tsbhoemfnu[address] [place] [id number]. Airam Tripathi CBC AUTO DIFFon 01-06-2022 BASO # 0.0 103/ul Normal 0.0-0.1 [facility] Comment on above: Performed By: #### C BC ####[facility] Jgrntxobvu35[address] [place] [id number]. Airam Tripathi Basophils/100 WBC (Bld) 0.3 % Normal 0.2-2.0 [facility] Comment on above: Performed By: #### C BC ####[facility] Xzehegjtew59[address] [place] [id number]. Airam Tripathi EO # 0.2 103/ul Normal 0.0-0.7 [facility] Comment on above: Performed By: #### C BC ####[facility] Pcxfrmwqgf8639 [place] [id number]. Airam Tripathi Eosinophils/100 WBC (Bld) 4.1 % Normal 0.9-7.0 [facility] Comment on above: Performed By: #### C BC ####[facility] Rpyhvmdmcq4246 [place] [id number]. Airam Tripathi Erythrocyte distribution width (RBC) [Ratio] 12.9 % Normal 11.0-15.0 [facility] Comment on above: Performed By: #### C BC ####[facility] Lhaplvolex[address] [place], [place] [address]Dr. Airam Tripathi Hematocrit (Bld) [Volume fraction] 34.2 % Critically low 36.0-48.0 [facility] Comment on above: Performed By: #### C BC ####[facility] Arjearfchl[address] [place], [place] [address]Dr. Airam Tripathi Hemoglobin (Bld) [Mass/Vol] 10.6 g/dL Critically low 12.0-16.0 [facility] Comment on above: Performed By: #### C BC ####[facility] Retnaxvyxa[address] [place], [place] [address]Dr. Airam Tripathi IG # 0.03 10e3/ul Normal 0.00-0.03 [facility] Comment on above: Performed By: #### C BC ####[facility] Cwifmmpwjn[address] [place], [place] [address]Dr. Airam Tripathi IG % 0.5 % Normal 0.0-0.5 [facility] Comment on above: Performed By: #### C BC ####[facility] Bmlssdgjvs[address] [place], [place] [address]Dr. Airam Tripathi LYMPH # 1.1 103/ul Critically low 1.2-3.8 [facility] Comment on above: Performed By: #### C BC ####[facility] Ljcagwnmlq[address] [place], [place] [address]Dr. Airam Tripathi Lymphocytes/100 WBC (Bld) 18.2 % Critically low 20.5-60.0 [facility] Comment on above: Performed By: #### C BC ####[facility] Wxufpegist[address] [place] [address]Dr. Airam Tripathi MANUAL DIFF REQ NO Normal [facility] Comment on above: Performed By: #### C BC ####[facility] Nkwzdosftz8[address] [place] [address]Dr. Airam Tripathi MCH (RBC) [Entitic mass] 29.6 pg Normal 26.7-34.0 [facility] Comment on above: Performed By: #### C BC ####[facility] Gjrjbgoxlo[address] [place], [place] [address]Dr. Airam Tripathi MCHC (RBC) [Mass/Vol] 31.0 g/dL Normal 29.9-35.2 [facility] Comment on above: Performed By: #### C BC ####[facility] Xqzfrnhkzx[address] [place], [place] [address]Dr. Airam Tripathi MCV (RBC) [Entitic vol] 95.5 fL Normal 81.0-99.0 [facility] Comment on above: Performed By: #### C BC ####[facility] Fovoajuhoh93[address] [place], [place] [address]Dr. Airam Tripathi MONO # 0.5 103/ul Normal 0.3-0.8 [facility] Comment on above: Performed By: #### C BC ####[facility] Afxcwhoccj17[address] [place], [place] [address]Dr. Airam Deuce Monocytes/100 WBC (Bld) 8.5 % Normal 1.7-12.0 [facility] Comment on above: Performed By: #### C BC ####[facility] Pbznqgaxec75[address] [place], [place] [address]Dr. Airam Tripathi NEUT # 4.0 103/ul Normal 1.4-6.5 [facility] Comment on above: Performed By: #### C BC ####[facility] Csjzabufwx[address] [place], [place] [address]Dr. Airam Tripathi Neutrophils/100 WBC (Bld) 68.4 % Normal 43.0-75.0 [facility] Comment on above: Performed By: #### C BC ####[facility] Eknkgvveum1104 [place] [id number]. Airam Tripathi Platelet mean volume (Bld) [Entitic vol] 10.1 fL Normal 9.5-13.5 [facility] Comment on above: Performed By: #### C BC ####[facility] Zmibamzemy5198 [place] [id number]. Airam Tripathi PLT 304 103/ul Normal 150-450 [facility] Comment on above: Performed By: #### C BC ####[facility] Ivsnhjquqq6759 [place] [address]Dr. Airam Tripathi RBC 3.58 106/ul Critically low 4.20-5.40 [facility] Comment on above: Performed By: #### C BC ####[facility] Kpoogoatss9[address] [place] [address]Dr. Airam Deuce WBC 5.9 103/ul Normal 4.0-11.0 [facility] Comment on above: Performed By: #### C BC ####[facility] [address]axqvrgcda[address] [place], [place] [address]Dr. Selenaneil Tripathi MG MAMM RT DIAG FUon 022 MG MAMM RT DIAG FU Normal [facility] PROF 14(COMP METB)on 022 Albumin [Mass/Vol] 3.1 g/dL Critically low 3.4-5.0 [facility] Comment on above: Performed By: #### C MP ####[facility] Dqxbngobyz3[address] [place] [address]Dr. Airam Deuce Albumin/Globulin [Mass ratio] 1.0 {ratio} Normal [facility] Comment on above: Performed By: #### C MP ####[facility] Dyoruadghw0949 [place] [address]Dr. Selenaneil Deuce ALP [Catalytic activity/Vol] 143 U/L Critically high 46-116 [facility] Comment on above: Performed By: #### C MP ####[facility] Jgsqnelbpw6571 [place] [address]Dr. Selenaneil Tripathi ALT [Catalytic activity/Vol] 23 U/L Normal 14-59 [facility] Comment on above: Performed By: #### C MP ####[facility] Keibvtzeme3678 [place] [address]Dr. Airam Tripathi Anion gap [Moles/Vol] 13.2 mmol/L Normal [facility] Comment on above: Performed By: #### C MP ####[facility] Dkedhrjbjm3284 [place] [phone]. Airam Tripathi AST [Catalytic activity/Vol] 20 U/L Normal 15-37 [facility] Comment on above: Performed By: #### C MP ####[facility] Gztnlujkml1482 [place] [address]Dr. Airam Deuce Bilirubin [Mass/Vol] 0.3 mg/dL Normal 0.2-1.0 [facility] Comment on above: Performed By: #### C MP ####[facility] Llqtbqtpyi[address] [place], [place] [address]Dr. Airam Deuce Calcium [Mass/Vol] 8.2 mg/dL Critically low 8.5-10.1 [facility] Comment on above: Performed By: #### C MP ####[facility] Vbqsdopnwk[address] [place], [place] [address]Dr. Airam Deuce Chloride [Moles/Vol] 100 mmol/L Normal 98-107 [facility] Comment on above: Performed By: #### C MP ####[facility] Ucsessyfso[address] [place], [place] [address]Dr. Airam Deuce CO2 [Moles/Vol] 26.0 mmol/L Normal 21.0-32.0 [facility] Comment on above: Performed By: #### C MP ####[facility] Sblbvtwjgo[address] [place], [place] [address]Dr. Airam Tripathi Creatinine [Mass/Vol] 1.52 mg/dL Critically high 0.55-1.02 [facility] Comment on above: Performed By: #### C MP ####[facility] Yxpgmkoyyn66[address] [place], [place] [address]Dr. Airam Deuce EGFR-AF MALAGASY 42 mL/min/1.73m2 Critically low >=60 [facility] Comment on above: Performed By: #### C MP ####[facility] Cnmfxeliow5136 [place] [address]Dr. Airam Tripathi EGFR-NON AF MALAGASY 35 mL/min/1.73m2 Critically low >=60 [facility] Comment on above: Performed By: #### C MP ####[facility] Hdhzrrmeie9044 [place] [address]Dr. Airam Tripathi Globulin (S) [Mass/Vol] 3.2 g/dL Normal [facility] Comment on above: Performed By: #### C MP ####[facility] Yezchrecxm[address] [place], [place] [address]Dr. Airam Tripathi Glucose [Mass/Vol] 84 mg/dL Normal 74-106 [facility] Comment on above: Performed By: #### C MP ####[facility] Kipofukmmf[address] [place], [place] [address]Dr. Airam Deuce Potassium [Moles/Vol] 4.2 mmol/L Normal 3.5-5.1 [facility] Comment on above: Performed By: #### C MP ####[facility] Ulzwyidrst[address] [place], [place] [address]Dr. Airam Tripathi Protein [Mass/Vol] 6.3 g/dL Critically low 6.4-8.2 [facility] Comment on above: Performed By: #### C MP ####[facility] Kykuyekfay[address] [place], [place] [address]Dr. Airam Tripathi Sodium [Moles/Vol] 135 mmol/L Critically low 136-145 [facility] Comment on above: Performed By: #### C MP ####[facility] Oxughvxmxk1023[address] [place], [place] [address]Dr. Airam Tripathi Urea nitrogen [Mass/Vol] 36.0 mg/dL Critically high 7.0-18.0 [facility] Comment on above: Performed By: #### C MP ####[facility] Oftyggoitu6904[address] [place], [place] [address]Dr. Airam Deuce Urea nitrogen/Creatinine [Mass ratio] 23.7 mg/mg Normal [facility] Comment on above: Performed By: #### C MP ####[facility] Efjutqqqxy[address] [place] [address]Dr. Airam Tripathi US BREAST RIGHT LIMITEDon US BREAST RIGHT LIMITED Normal [facility] OSMOLALITYon 12-31-2021 Osmolality [Osmolality] 280 mosm/kg Normal 275-295 [facility] Comment on above: Performed By: #### O SMO ####[facility] Rpwjpvtowz[address] [place], [place] [address]Dr. Airam Tripathi CBC AUTO DIFFon 12-30-2021 BASO # 0.0 103/ul Normal 0.0-0.1 [facility] Comment on above: Performed By: #### C BC ####[facility] Vqegetucwn024[address] [place] [address]Dr. Airam Tripathi Basophils/100 WBC (Bld) 0.5 % Normal 0.2-2.0 [facility] Comment on above: Performed By: #### C BC ####[facility] Sxtcgqbinv[address] [place], [place] [address]Dr. Airam Tripathi EO # 0.3 103/ul Normal 0.0-0.7 [facility] Comment on above: Performed By: #### C BC ####[facility] Ivmdeeobaj74[address] [place], [place] [address]Dr. Airam Tripathi Eosinophils/100 WBC (Bld) 3.5 % Normal 0.9-7.0 [facility] Comment on above: Performed By: #### C BC ####[facility] Gutontfqve85[address] [place], [place] [address]Dr. Airam Tripathi Erythrocyte distribution width (RBC) [Ratio] 13.0 % Normal 11.0-15.0 [facility] Comment on above: Performed By: #### C BC ####[facility] Vabvofvzxl[address] [place] [address]Dr. Airam Tripathi Hematocrit (Bld) [Volume fraction] 34.2 % Critically low 36.0-48.0 [facility] Comment on above: Performed By: #### C BC ####[facility] Pyeohpsaus50[address] [place] [address]Dr. Airam Tripathi Hemoglobin (Bld) [Mass/Vol] 10.4 g/dL Critically low 12.0-16.0 [facility] Comment on above: Performed By: #### C BC ####[facility] Pujhgftfkl95[address] [place] [address]Dr. Airam Tripathi IG # 0.04 10e3/ul Critically high 0.00-0.03 [facility] Comment on above: Performed By: #### C BC ####[facility] Bkgkfdcwop350[address] [place] [address]Dr. Airam Tripathi IG % 0.5 % Normal 0.0-0.5 [facility] Comment on above: Performed By: #### C BC ####[facility] Ubamlxuopy[address] [place], [place] [address]Dr. Airam Tripathi LYMPH # 2.1 103/ul Normal 1.2-3.8 [facility] Comment on above: Performed By: #### C BC ####[facility] Swappyskba[address] [place], [place] [address]Dr. Selenaneil Tripathi Lymphocytes/100 WBC (Bld) 23.5 % Normal 20.5-60.0 [facility] Comment on above: Performed By: #### C BC ####[facility] Uaekcdqkri99[address] [place], [place] [address]Dr. Airam Tripathi MANUAL DIFF REQ NO Normal [facility] Comment on above: Performed By: #### C BC ####[facility] Vdaffwwemj[address] [place], [place] [address]Dr. Aiarm Tripathi MCH (RBC) [Entitic mass] 29.4 pg Normal 26.7-34.0 [facility] Comment on above: Performed By: #### C BC ####[facility] [address]jgnwwnktj[address] [place], [place] [address]Dr. Airam Tripathi MCHC (RBC) [Mass/Vol] 30.4 g/dL Normal 29.9-35.2 [facility] Comment on above: Performed By: #### C BC ####[facility] Inkjtevxzy16[address] [place] [id number]. Airam Tripathi MCV (RBC) [Entitic vol] 96.6 fL Normal 81.0-99.0 [facility] Comment on above: Performed By: #### C BC ####[facility] Xcyjvyrpii61[address] [place] [id number]. Airam Tripathi MONO # 0.6 103/ul Normal 0.3-0.8 [facility] Comment on above: Performed By: #### C BC ####[facility] Feeprqnajz7704 [place] [id number]. Airam Tripathi Monocytes/100 WBC (Bld) 6.4 % Normal 1.7-12.0 [facility] Comment on above: Performed By: #### C BC ####[facility] Szgqzgvaio2053 [place] [id number]. Airam Tripathi NEUT # 5.8 103/ul Normal 1.4-6.5 [facility] Comment on above: Performed By: #### C BC ####[facility] Zmawdqukqu[address] [place], [place] [address]Dr. Airam Tripathi Neutrophils/100 WBC (Bld) 65.6 % Normal 43.0-75.0 [facility] Comment on above: Performed By: #### C BC ####[facility] Nxfydgcdym0445 [place] [id number]. Airam Tripathi Platelet mean volume (Bld) [Entitic vol] 9.2 fL Critically low 9.5-13.5 [facility] Comment on above: Performed By: #### C BC ####[facility] Lhfcazozee97[address] [place] [id number]. Airam Tripathi PLT 338 103/ul Normal 150-450 [facility] Comment on above: Performed By: #### C BC ####[facility] Bheuessmcg5860 [place] [id number]. Airam Tripathi RBC 3.54 106/ul Critically low 4.20-5.40 [facility] Comment on above: Performed By: #### C BC ####[facility] Mvjblvgcvu0149 [place] [address]Dr. Airam Tripathi WBC 8.9 103/ul Normal 4.0-11.0 [facility] Comment on above: Performed By: #### C BC ####[facility] Dallyctizs[address] [place], [place] [address]Dr. Airam Tripathi MG MAMM SCREEN 3D GUMARO CADon 12-30-2021 MG MAMM SCREEN 3D GUMARO CAD Normal [facility] PROF 14(COMP METB)on 022 Albumin [Mass/Vol] 3.6 g/dL Normal 3.4-5.0 [facility] Comment on above: Performed By: #### C MP ####[facility] Ctppcbobye[address] [place], [place] [address]Dr. Airam Tripathi Albumin/Globulin [Mass ratio] 1.1 {ratio} Normal [facility] Comment on above: Performed By: #### C MP ####[facility] [address]vqmijsaet[address] [place], [place] [address]Dr. Airam Tripathi ALP [Catalytic activity/Vol] 117 U/L Critically high 46-116 [facility] Comment on above: Performed By: #### C MP ####[facility] Cgssehwgiw[address] [place], [place] [address]Dr. Airam Tripathi ALT [Catalytic activity/Vol] 26 U/L Normal 14-59 [facility] Comment on above: Performed By: #### C MP ####[facility] [address]jatohbve[address] [place], [place] [address]Dr. Airam Tripathi Anion gap [Moles/Vol] 11.2 mmol/L Normal [facility] Comment on above: Performed By: #### C MP ####[facility] Zfkmhwdnqe[address] [place], [place] [address]Dr. Airam Tripathi AST [Catalytic activity/Vol] 29 U/L Normal 15-37 [facility] Comment on above: Performed By: #### C MP ####[facility] [address]zeeabmky[address] [place], [place] [address]Dr. Airam Tripathi Bilirubin [Mass/Vol] 0.3 mg/dL Normal 0.2-1.0 [facility] [facility] Comment on above: Performed By: #### C MP ####[facility] [address]vovxs[address] [place] [address]Dr. Airam Tripathi Calcium [Mass/Vol] 9.1 mg/dL Normal 8.5-10.1 [facility] Comment on above: Performed By: #### C MP ####[facility] Dyjlspqzrn[address] [place] [address]Dr. Airam Tripathi Chloride [Moles/Vol] 101 mmol/L Normal 98-107 [facility] Comment on above: Performed By: #### C MP ####[facility] Xdzcslekpf[address] [place] [address]Dr. Airam Tripathi CO2 [Moles/Vol] 26.8 mmol/L Normal 21.0-32.0 [facility] Comment on above: Performed By: #### C MP ####[facility] Mvodruadro[address] [place], [place] [address]Dr. Airam Tripathi Creatinine [Mass/Vol] 1.56 mg/dL Critically high 0.55-1.02 [facility] Comment on above: Performed By: #### C MP ####[facility] Oopkncpjcl[address] [place], [place] [address]Dr. Airam Tripathi EGFR-AF MALAGASY 41 mL/min/1.73m2 Critically low >=60 [facility] Comment on above: Performed By: #### C MP ####[facility] Gqhncwsakf[address] [place], [place] [address]Dr. Airam Tripathi EGFR-NON AF MALAGASY 34 mL/min/1.73m2 Critically low >=60 [facility] Comment on above: Performed By: #### C MP ####[facility] Kpubhewnzj8[address] [place], [place] [address]Dr. Airam Tripathi Globulin (S) [Mass/Vol] 3.3 g/dL Normal [facility] Comment on above: Performed By: #### C MP ####[facility] Jjmnzrympq[address] [place], [place] [address]Dr. Airam Tripathi Glucose [Mass/Vol] 84 mg/dL Normal 74-106 [facility] Comment on above: Performed By: #### C MP ####[facility] Kkczoxgqxs[address] [place] [address]Dr. Airam Tripathi Potassium [Moles/Vol] 5.0 mmol/L Normal 3.5-5.1 [facility] Comment on above: Performed By: #### C MP ####[facility] Oprrdwmfqc[address] [place] [address]Dr. Airam Tripathi Protein [Mass/Vol] 6.9 g/dL Normal 6.4-8.2 [facility] Comment on above: Performed By: #### C MP ####[facility] Qndyiuqodl[address] [place], [place] [address]Dr. Airam Tripathi Sodium [Moles/Vol] 134 mmol/L Critically low 136-145 [facility] Comment on above: Performed By: #### C MP ####[facility] Aclilluglz[address] [place], [place] [address]Dr. Airam Tripathi Urea nitrogen [Mass/Vol] 28.0 mg/dL Critically high 7.0-18.0 [facility] Comment on above: Performed By: #### C MP ####[facility] Imbpbxekwt8232[address] [place], [place] [address]Dr. Airam Tripathi Urea nitrogen/Creatinine [Mass ratio] 17.9 mg/mg Normal [facility] Comment on above: Performed By: #### C MP ####[facility] Kzhvomdtrx7[address] [place], [place] [address]Dr. Airam Tripathi OSMOLALITYon 12-24-2021 Osmolality [Osmolality] 287 mosm/kg Normal 275-295 [facility] Comment on above: Performed By: #### O SMO ####[facility] Vfspuisepn[address] [place], [place] [address]Dr. Airam Tripathi CBC AUTO DIFFon 12-22-2021 BASO # 0.0 103/ul Normal 0.0-0.1 [facility] Comment on above: Performed By: #### C BC ####[facility] Etcbbgburn46[address] [place], [place] [address]Dr. Airam Tripathi Basophils/100 WBC (Bld) 0.5 % Normal 0.2-2.0 [facility] Comment on above: Performed By: #### C BC ####[facility] Ndwptuyviy[address] [place] [address]Dr. Airam Tripathi EO # 0.4 103/ul Normal 0.0-0.7 [facility] Comment on above: Performed By: #### C BC ####[facility] Xjeoshqode16[address] [place], [place] [address]Dr. Airam Deuce Eosinophils/100 WBC (Bld) 6.4 % Normal 0.9-7.0 [facility] Comment on above: Performed By: #### C BC ####[facility] Iwalrjadhl365[address] [place], [place] [address]Dr. Selenaneil Tripathi Erythrocyte distribution width (RBC) [Ratio] 13.2 % Normal 11.0-15.0 [facility] Comment on above: Performed By: #### C BC ####[facility] Uohppmwthl8[address] [place], [place] [address]Dr. Selenaneil Tripathi Hematocrit (Bld) [Volume fraction] 32.2 % Critically low 36.0-48.0 [facility] Comment on above: Performed By: #### C BC ####[facility] Icmxazgiyh45[address] [place], [place] [address]Dr. Airam Tripathi Hemoglobin (Bld) [Mass/Vol] 10.1 g/dL Critically low 12.0-16.0 [facility] Comment on above: Performed By: #### C BC ####[facility] Nidwqwryfv[address] [place], [place] [address]Dr. Selenaneil Tripathi IG # 0.03 10e3/ul Normal 0.00-0.03 [facility] Comment on above: Performed By: #### C BC ####[facility] Brclwirguk[address] [place], [place] [address]Dr. Selenaneil Tripathi IG % 0.5 % Normal 0.0-0.5 [facility] Comment on above: Performed By: #### C BC ####[facility] Vavdbeyejz[address] [place], [place] [address]DrKianna Tripathi LYMPH # 1.3 103/ul Normal 1.2-3.8 [facility] Comment on above: Performed By: #### C BC ####[facility] Hzbxbtxwaw340[address] [place] [address]Dr. Airam Tripathi Lymphocytes/100 WBC (Bld) 20.5 % Normal 20.5-60.0 [facility] Comment on above: Performed By: #### C BC ####[facility] Wetxdausoh[address] [place] [address]Dr. Airam Tripathi MANUAL DIFF REQ NO Normal [facility] Comment on above: Performed By: #### C BC ####[facility] F[address]zwkbtdy[address] [place] [id number]. Airam Tripathi MCH (RBC) [Entitic mass] 30.1 pg Normal 26.7-34.0 [facility] Comment on above: Performed By: #### C BC ####[facility] Sxwoqmqrwy11[address] [place], [place] [address]Dr. Airam Tripathi MCHC (RBC) [Mass/Vol] 31.4 g/dL Normal 29.9-35.2 [facility] Comment on above: Performed By: #### C BC ####[facility] Mnwpvlmezd[address] [place], [place] [address]Dr. Airam Tripathi MCV (RBC) [Entitic vol] 95.8 fL Normal 81.0-99.0 [facility] Comment on above: Performed By: #### C BC ####[facility] Zmpqfgdkvn817[address] [place], [place] [address]Dr. Airam Tripathi MONO # 0.5 103/ul Normal 0.3-0.8 [facility] Comment on above: Performed By: #### C BC ####[facility] Jpqzeunsmg[address] [place], [place] [address]Dr. Airam Tripathi Monocytes/100 WBC (Bld) 7.4 % Normal 1.7-12.0 [facility] Comment on above: Performed By: #### C BC ####[facility] Fsmoliwqbo[address] [place], [place] [address]DrKianna Tripathi NEUT # 3.9 103/ul Normal 1.4-6.5 [facility] Comment on above: Performed By: #### C BC ####[facility] Wwsgoqkwil[address] [place] [address]Dr. Airam Deuce Neutrophils/100 WBC (Bld) 64.7 % Normal 43.0-75.0 [facility] Comment on above: Performed By: #### C BC ####[facility] Nditdcxshr39[address] [place] [id number] Waltersneil Deuce Platelet mean volume (Bld) [Entitic vol] 9.2 fL Critically low 9.5-13.5 [facility] Comment on above: Performed By: #### C BC ####[facility] Civdfnjmuq35[address] [place] [address]DrKianna Tripathi PLT 309 103/ul Normal 150-450 [facility] Comment on above: Performed By: #### C BC ####[facility] Ewkbtaclim[address] [place] [address]DrKianna Tripathi RBC 3.36 106/ul Critically low 4.20-5.40 [facility] Comment on above: Performed By: #### C BC ####[facility] Zcafbrxwpj[address] [place] [address]DrKianna Tripathi WBC 6.1 103/ul Normal 4.0-11.0 [facility] Comment on above: Performed By: #### C BC ####[facility] Uvqyfllvvl4[address] [place] [address]DrKianna Tripathi PROF 14(COMP METB)on 022 Albumin [Mass/Vol] 3.2 g/dL Critically low 3.4-5.0 [facility] Comment on above: Performed By: #### C MP ####[facility] Sfclpylyxo[address] [place] [address]DrKianna Tripathi Albumin/Globulin [Mass ratio] 1.1 {ratio} Normal [facility] Comment on above: Performed By: #### C MP ####[facility] Dhlbbxzzlu45[address] [place] [phone] Tripathi ALP [Catalytic activity/Vol] 123 U/L Critically high 46-116 [facility] Comment on above: Performed By: #### C MP ####[facility] Bgzjmrajzg0382 [place] [phone]. Airam Tripathi ALT [Catalytic activity/Vol] 26 U/L Normal 14-59 [facility] Comment on above: Performed By: #### C MP ####[facility] Lxkiuaxkcm4[address] [place] [phone]. Airam Tripathi Anion gap [Moles/Vol] 14.5 mmol/L Normal [facility] Comment on above: Performed By: #### C MP ####[facility] Ckdenhmnfn20[address] [place] [phone]. Airam Tripathi AST [Catalytic activity/Vol] 23 U/L Normal 15-37 [facility] Comment on above: Performed By: #### C MP ####[facility] Yojtlngivk94[address] [place] [address]Dr. Airam Deuce Bilirubin [Mass/Vol] 0.3 mg/dL Normal 0.2-1.0 [facility] Comment on above: Performed By: #### C MP ####[facility] Juycijjhmq8[address] [place] [id number]. Airam Deuce Calcium [Mass/Vol] 8.2 mg/dL Critically low 8.5-10.1 [facility] Comment on above: Performed By: #### C MP ####[facility] Emmvdakfku0583 [place] [phone]. Airam Deuce Chloride [Moles/Vol] 102 mmol/L Normal 98-107 [facility] Comment on above: Performed By: #### C MP ####[facility] Yissedqyzl6[address] [place] [phone]. Airam Deuce CO2 [Moles/Vol] 23.2 mmol/L Normal 21.0-32.0 [facility] Comment on above: Performed By: #### C MP ####[facility] Kndzpkziei9103 [place] [phone]. Airam Deuce Creatinine [Mass/Vol] 1.98 mg/dL Critically high 0.55-1.02 [facility] Comment on above: Performed By: #### C MP ####[facility] Dxwmtmroyi8197 [place] [phone]. Airam Tripathi EGFR-AF MALAGASY 31 mL/min/1.73m2 Critically low >=60 [facility] Comment on above: Performed By: #### C MP ####[facility] Uimemhuwuw[address] [place] [phone]. Airam Tripathi EGFR-NON AF MALAGASY 26 mL/min/1.73m2 Critically low >=60 [facility] Comment on above: Performed By: #### C MP ####[facility] Mqipolfkjb5551 [place] [phone]. Airam Deuce Globulin (S) [Mass/Vol] 3.0 g/dL Normal [facility] Comment on above: Performed By: #### C MP ####[facility] Dfnprepsaq9271 [place] [address]Dr. Airam Deuce Glucose [Mass/Vol] 131 mg/dL Critically high 74-106 [facility] Comment on above: Performed By: #### C MP ####[facility] Pxryltvumv5084 [place] [phone]. Airam Deuce Potassium [Moles/Vol] 4.7 mmol/L Normal 3.5-5.1 [facility] Comment on above: Performed By: #### C MP ####[facility] Oqwwaitxho4399 [place] [address]Dr. Airam Deuce Protein [Mass/Vol] 6.2 g/dL Critically low 6.4-8.2 [facility] Comment on above: Performed By: #### C MP ####[facility] Cbrwjcibhc8740 [place] [address]Dr. Airam Tripathi Sodium [Moles/Vol] 135 mmol/L Critically low 136-145 [facility] Comment on above: Performed By: #### C MP ####[facility] Amfyohgdqi9579 [place] [phone]. Selenaneil Deuce Urea nitrogen [Mass/Vol] 37.0 mg/dL Critically high 7.0-18.0 [facility] Comment on above: Performed By: #### C MP ####[facility] Aykishegbj[address] [place], [place] [address]Dr. Airam Tripathi Urea nitrogen/Creatinine [Mass ratio] 18.7 mg/mg Normal [facility] Comment on above: Performed By: #### C MP ####[facility] Garkoocwui[address] [place], [place] [address]Dr. Airam Tripathi OSMOLALITYon 12-18-2021 Osmolality [Osmolality] 271 mosm/kg Critically low 275-295 [facility] Comment on above: Performed By: #### O SMO ####[facility] Nputiovypp8[address] [place], [place] [address]Dr. Airam Tripathi CBC AUTO DIFFon 12-16-2021 BASO # 0.0 103/ul Normal 0.0-0.1 [facility] Comment on above: Performed By: #### C BC ####[facility] Kvhtcoieoc97[address] [place], [place] [address]DrKianna Tripathi Basophils/100 WBC (Bld) 0.6 % Normal 0.2-2.0 [facility] Comment on above: Performed By: #### C BC ####[facility] Rvlpiosokv4925[address] [place], [place] [address]DrKianna Tripathi EO # 0.1 103/ul Normal 0.0-0.7 [facility] Comment on above: Performed By: #### C BC ####[facility] Drdskqerez214[address] [place], [place] [address]DrKianna Tripathi Eosinophils/100 WBC (Bld) 2.1 % Normal 0.9-7.0 [facility] Comment on above: Performed By: #### C BC ####[facility] Pmklhxmvzc2875[address] [place], [place] [address]Dr. Airam Tripathi Erythrocyte distribution width (RBC) [Ratio] 13.1 % Normal 11.0-15.0 [facility] Comment on above: Performed By: #### C BC ####[facility] Cnsolkgtgp754[address] [place], [place] [address]DrKianna Tripathi Hematocrit (Bld) [Volume fraction] 33.8 % Critically low 36.0-48.0 [facility] Comment on above: Performed By: #### C BC ####[facility] Ivhgyvtqfm7953 [place] [address]DrKianna Airam Tripathi Hemoglobin (Bld) [Mass/Vol] 10.7 g/dL Critically low 12.0-16.0 [facility] Comment on above: Performed By: #### C BC ####[facility] Tucapgxcbk514[address] [place], [place] [address]DrKianna Airam Tripathi IG # 0.02 10e3/ul Normal 0.00-0.03 [facility] Comment on above: Performed By: #### C BC ####[facility] Zjbcjjsyud[address] [place], [place] [address]DrKianna Airam Deuce IG % 0.3 % Normal 0.0-0.5 [facility] Comment on above: Performed By: #### C BC ####[facility] Bfsfimsirc08[address] [place], [place] [address]DrKianna Airam Deuce LYMPH # 1.2 103/ul Normal 1.2-3.8 [facility] Comment on above: Performed By: #### C BC ####[facility] Ptttmdsktk[address] [place], [place] [address]DrKianna Airam Tripathi Lymphocytes/100 WBC (Bld) 17.3 % Critically low 20.5-60.0 [facility] Comment on above: Performed By: #### C BC ####[facility] Osbpmygoqn034[address] [place], [place] [address]DrKianna Airam Deuce MANUAL DIFF REQ NO Normal [facility] Comment on above: Performed By: #### C BC ####[facility] Mrkqjotatl0[address] [place], [place] [address]DrKianna Airam Deuce MCH (RBC) [Entitic mass] 30.2 pg Normal 26.7-34.0 [facility] Comment on above: Performed By: #### C BC ####[facility] Nrzdudrwns50[address] [place], [place] [address]DrKianna Selenaneil Tripathi MCHC (RBC) [Mass/Vol] 31.7 g/dL Normal 29.9-35.2 [facility] Comment on above: Performed By: #### C BC ####[facility] Pfojjbtwkd0799 [place] [address]DrKianna Tripathi MCV (RBC) [Entitic vol] 95.5 fL Normal 81.0-99.0 [facility] Comment on above: Performed By: #### C BC ####[facility] Pzqxfkdqqx[address] [place], [place] [address]DrKianna Tripathi MONO # 0.5 103/ul Normal 0.3-0.8 [facility] Comment on above: Performed By: #### C BC ####[facility] Gqclxkydww56[address] [place], [place] [address]DrKianna Tripathi Monocytes/100 WBC (Bld) 6.8 % Normal 1.7-12.0 [facility] Comment on above: Performed By: #### C BC ####[facility] Ssjkvdjepj54[address] [place], [place] [address]DrKianna Tripathi NEUT # 4.9 103/ul Normal 1.4-6.5 [facility] Comment on above: Performed By: #### C BC ####[facility] Lxicgmrxnp470[address] [place], [place] [address]DrKianna Tripathi Neutrophils/100 WBC (Bld) 72.9 % Normal 43.0-75.0 [facility] Comment on above: Performed By: #### C BC ####[facility] Eipdvoglij86[address] [place], [place] [address]DrKianna Tripathi Platelet mean volume (Bld) [Entitic vol] 9.0 fL Critically low 9.5-13.5 [facility] Comment on above: Performed By: #### C BC ####[facility] Jbzotkcwls[address] [place], [place] [address]DrKianna Tripathi PLT 297 103/ul Normal 150-450 [facility] Comment on above: Performed By: #### C BC ####[facility] Jjdyzorbdv637[address] [place], [place] [address]DrKianna Tripathi RBC 3.54 106/ul Critically low 4.20-5.40 [facility] Comment on above: Performed By: #### C BC ####[facility] Wrzbvnploq7[address] [place] [address]Dr. Airam Tripathi WBC 6.8 103/ul Normal 4.0-11.0 [facility] Comment on above: Performed By: #### C BC ####[facility] Effidhtnaa[address] [place], [place] [address]DrKianna Tripathi PROF 14(COMP METB)on 022 Albumin [Mass/Vol] 3.2 g/dL Critically low 3.4-5.0 [facility] Comment on above: Performed By: #### C MP ####[facility] Ueemaduxkd414[address] [place], [place] [address]DrKianna Tripathi Albumin/Globulin [Mass ratio] 1.0 {ratio} Normal [facility] Comment on above: Performed By: #### C MP ####[facility] Cxgysxgxgp[address] [place], [place] [address]Dr. Airam Tripathi ALP [Catalytic activity/Vol] 109 U/L Normal 46-116 [facility] Comment on above: Performed By: #### C MP ####[facility] Xwdzlkydcl[address] [place], [place] [address]DrKianna Tripathi ALT [Catalytic activity/Vol] 23 U/L Normal 14-59 [facility] Comment on above: Performed By: #### C MP ####[facility] Zkzfddwudu8[address] [place], [place] [address]DrKianna Tripathi Anion gap [Moles/Vol] 11.6 mmol/L Normal [facility] Comment on above: Performed By: #### C MP ####[facility] Amqmnwbqca44[address] [place], [place] [address]Dr. Airam Tripathi AST [Catalytic activity/Vol] 24 U/L Normal 15-37 [facility] Comment on above: Performed By: #### C MP ####[facility] Hfgbzsxare[address] [place], [place] [address]DrKianna Tripathi Bilirubin [Mass/Vol] 0.2 mg/dL Normal 0.2-1.0 [facility] Comment on above: Performed By: #### C MP ####[facility] Cyrpjlqmki[address] [place] [address]Dr. Airam Tripathi Calcium [Mass/Vol] 8.6 mg/dL Normal 8.5-10.1 [facility] Comment on above: Performed By: #### C MP ####[facility] Yiuvjliswv6972 [place] [address]Dr. Airam Tripathi Chloride [Moles/Vol] 100 mmol/L Normal 98-107 [facility] Comment on above: Performed By: #### C MP ####[facility] Gyemblxjss89[address] [place] [address]Dr. Airam Tripathi CO2 [Moles/Vol] 24.7 mmol/L Normal 21.0-32.0 [facility] Comment on above: Performed By: #### C MP ####[facility] Qqrdqfumvr[address] [place], [place] [address]Dr. Airam Tripathi Creatinine [Mass/Vol] 1.11 mg/dL Critically high 0.55-1.02 [facility] Comment on above: Performed By: #### C MP ####[facility] Ukybaybdbo8[address] [place], [place] [address]Dr. Airam Tripathi EGFR-AF MALAGASY >60 Normal >=60 [facility] Comment on above: Performed By: #### C MP ####[facility] Xswbyypjal94[address] [place], [place] [address]Dr. Airam Deuce EGFR-NON AF MALAGASY 50 mL/min/1.73m2 Critically low >=60 [facility] Comment on above: Performed By: #### C MP ####[facility] Flttzhzsvk966[address] [place], [place] [address]Dr. Ariam Deuce Globulin (S) [Mass/Vol] 3.1 g/dL Normal [facility] Comment on above: Performed By: #### C MP ####[facility] Yvzwidwlfh7[address] [place] [address]Dr. Airam Deuce Glucose [Mass/Vol] 79 mg/dL Normal 74-106 [facility] Comment on above: Performed By: #### C MP ####[facility] Dkgczwwnjv4043 [place] [address]Dr. Selenaneil Deuce Potassium [Moles/Vol] 5.3 mmol/L Critically high 3.5-5.1 [facility] Comment on above: Performed By: #### C MP ####[facility] Neigzgizng2987 [place] [address]Dr. Airam Tripathi Protein [Mass/Vol] 6.3 g/dL Critically low 6.4-8.2 [facility] Comment on above: Performed By: #### C MP ####[facility] Ltznptnwaa[address] [place], [place] [address]Dr. Airam Tripathi Sodium [Moles/Vol] 131 mmol/L Critically low 136-145 [facility] Comment on above: Performed By: #### C MP ####[facility] Rnuauayvsi[address] [place], [place] [address]Dr. Airam Tripathi Urea nitrogen [Mass/Vol] 20.0 mg/dL Critically high 7.0-18.0 [facility] Comment on above: Performed By: #### C MP ####[facility] Mbkjpgxusu2314[address] [place], [place] [address]Dr. Airam Tripathi Urea nitrogen/Creatinine [Mass ratio] 18.0 mg/mg Normal [facility] Comment on above: Performed By: #### C MP ####[facility] Kgkjnxvquc[address] [place], [place] [address]Dr. Airam Tripathi OSMOLALITYon 12-09-2021 Osmolality [Osmolality] 279 mosm/kg Normal 275-295 [facility] Comment on above: Performed By: #### O SMO ####[facility] Iqxjasottr[address] [place], [place] [address]DrKianna Tripathi CBC AUTO DIFFon 12-07-2021 BASO # 0.0 103/ul Normal 0.0-0.1 [facility] Comment on above: Performed By: #### C BC ####[facility] Agwwrqczjg69[address] [place], [place] [address]Dr. Airam Tripathi Basophils/100 WBC (Bld) 0.5 % Normal 0.2-2.0 [facility] Comment on above: Performed By: #### C BC ####[facility] Fltyvuwmzx13[address] [place], [place] [address]DrKianna Tripathi EO # 0.4 103/ul Normal 0.0-0.7 [facility] Comment on above: Performed By: #### C BC ####[facility] Xxllzgeoqf814[address] [place], [place] [address]DrKianna Tripathi Eosinophils/100 WBC (Bld) 6.3 % Normal 0.9-7.0 [facility] Comment on above: Performed By: #### C BC ####[facility] Nqjhbbzsrv70[address] [place], [place] [address]DrKianna Tripathi Erythrocyte distribution width (RBC) [Ratio] 13.3 % Normal 11.0-15.0 [facility] Comment on above: Performed By: #### C BC ####[facility] Vmvtbfldwa[address] [place], [place] [address]DrKianna Tripathi Hematocrit (Bld) [Volume fraction] 29.5 % Critically low 36.0-48.0 [facility] Comment on above: Performed By: #### C BC ####[facility] Zmhnwbjref[address] [place], [place] [address]DrKianna Tripathi Hemoglobin (Bld) [Mass/Vol] 9.1 g/dL Critically low 12.0-16.0 [facility] Comment on above: Performed By: #### C BC ####[facility] Espivubtmb[address] [place], [place] [address]DrKianna Tripathi IG # 0.04 10e3/ul Critically high 0.00-0.03 [facility] Comment on above: Performed By: #### C BC ####[facility] Uopqpvycub[address] [place], [place] [address]DrKianna Tripathi IG % 0.7 % Critically high 0.0-0.5 [facility] Comment on above: Performed By: #### C BC ####[facility] Xrjiacnsrz[address] [place], [place] [address]DrKianna Tripathi LYMPH # 1.3 103/ul Normal 1.2-3.8 [facility] Comment on above: Performed By: #### C BC ####[facility] [address]yvw[address] [place] [address]DrKianna Tripathi Lymphocytes/100 WBC (Bld) 20.9 % Normal 20.5-60.0 [facility] Comment on above: Performed By: #### C BC ####[facility] [address]ugzty[address] [place], [place] [address]DrKianna Tripathi MANUAL DIFF REQ NO Normal [facility] Comment on above: Performed By: #### C BC ####[facility] [address] [place], [place] [address]DrKianna Tripathi MCH (RBC) [Entitic mass] 30.1 pg Normal 26.7-34.0 [facility] Comment on above: Performed By: #### C BC ####[facility] Ceqhbgtxxi[address] [place], [place] [address]DrKianna Tripathi MCHC (RBC) [Mass/Vol] 30.8 g/dL Normal 29.9-35.2 [facility] Comment on above: Performed By: #### C BC ####[facility] Txegcgwnro[address] [place], [place] [address]DrKianna Tripathi MCV (RBC) [Entitic vol] 97.7 fL Normal 81.0-99.0 [facility] Comment on above: Performed By: #### C BC ####[facility] Metizvzamg6[address] [place], [place] [address]DrKianna Tripathi MONO # 0.4 103/ul Normal 0.3-0.8 [facility] Comment on above: Performed By: #### C BC ####[facility] Fdmivyvxnu[address] [place], [place] [address]DrKianna Tripathi Monocytes/100 WBC (Bld) 6.6 % Normal 1.7-12.0 [facility] Comment on above: Performed By: #### C BC ####[facility] [address]km[address] [place], [place] [address]DrKianna Tripathi NEUT # 4.0 103/ul Normal 1.4-6.5 [facility] Comment on above: Performed By: #### C BC ####[facility] [address]cvwi[address] [place] [address]Dr. Airam Tripathi Neutrophils/100 WBC (Bld) 65.0 % Normal 43.0-75.0 [facility] Comment on above: Performed By: #### C BC ####[facility] Fe[address]cgldjui[address] [place] [address]Dr. Airam Tripathi Platelet mean volume (Bld) [Entitic vol] 9.4 fL Critically low 9.5-13.5 [facility] Comment on above: Performed By: #### C BC ####[facility] Pxosdqsikk[address] [place], [place] [address]Dr. Airam Tripathi PLT 224 103/ul Normal 150-450 [facility] Comment on above: Performed By: #### C BC ####[facility] Toqqzqvafd[address] [place], [place] [address]Dr. Airam Tripathi RBC 3.02 106/ul Critically low 4.20-5.40 [facility] Comment on above: Performed By: #### C BC ####[facility] Ejnjgceyfg[address] [place], [place] [address]DrKianna Tripathi WBC 6.1 103/ul Normal 4.0-11.0 [facility] Comment on above: Performed By: #### C BC ####[facility] Wivtnafnwr[address] [place], [place] [address]DrKianna Tripathi PROF 14(COMP METB)on 022 Albumin [Mass/Vol] 2.8 g/dL Critically low 3.4-5.0 [facility] Comment on above: Performed By: #### C MP ####[facility] Rrkswlzblc[address] [place], [place] [address]DrKianna Tripathi Albumin/Globulin [Mass ratio] 1.1 {ratio} Normal [facility] Comment on above: Performed By: #### C MP ####[facility] Qhexgkeqjy75[address] [place], [place] [address]Dr. Airam Tripathi ALP [Catalytic activity/Vol] 116 U/L Normal 46-116 [facility] Comment on above: Performed By: #### C MP ####[facility] [address]rrlfsc[address] [place] [id number]. Airam Tripathi ALT [Catalytic activity/Vol] 23 U/L Normal 14-59 [facility] Comment on above: Performed By: #### C MP ####[facility] Uscshteorh[address] [place] [id number]. Airam Tripathi Anion gap [Moles/Vol] 12.1 mmol/L Normal Th [facility] Comment on above: Performed By: #### C MP ####[facility] Ybwecdomyb[address] [place] [address]Dr. Airam Tripathi AST [Catalytic activity/Vol] 23 U/L Normal 15-37 [facility] Comment on above: Performed By: #### C MP ####[facility] Mfachahmwz[address] [place], [place] [address]Dr. Airam Deuce Bilirubin [Mass/Vol] 0.2 mg/dL Normal 0.2-1.0 [facility] Comment on above: Performed By: #### C MP ####[facility] Cafzsxzsfv[address] [place], [place] [address]Dr. Airam Deuce Calcium [Mass/Vol] 8.1 mg/dL Critically low 8.5-10.1 [facility] Comment on above: Performed By: #### C MP ####[facility] Pydetkybdu[address] [place], [place] [address]Dr. Airam Tripathi Chloride [Moles/Vol] 105 mmol/L Normal 98-107 [facility] Comment on above: Performed By: #### C MP ####[facility] Cludydbbde[address] [place], [place] [address]Dr. Airam Tripathi CO2 [Moles/Vol] 22.1 mmol/L Normal 21.0-32.0 [facility] Comment on above: Performed By: #### C MP ####[facility] Bndaeoyaoh[address] [place], [place] [address]Dr. Airam Deuce Creatinine [Mass/Vol] 1.06 mg/dL Critically high 0.55-1.02 [facility] Comment on above: Performed By: #### C MP ####[facility] X[address]vdmqb[address] [place] [address]Dr. Airam Tripathi EGFR-AF MALAGASY >60 Normal >=60 [facility] Comment on above: Performed By: #### C MP ####[facility] Delrqpmrid[address] [place] [id number]. Airam Deuce EGFR-NON AF MALAGASY 53 mL/min/1.73m2 Critically low >=60 [facility] Comment on above: Performed By: #### C MP ####[facility] [address]ddfwch[address] [place] [address]Dr. Airam Deuce Globulin (S) [Mass/Vol] 2.6 g/dL Normal [facility] Comment on above: Performed By: #### C MP ####[facility] Okpulbcgcl[address] [place] [address]Dr. Airam Tripathi Glucose [Mass/Vol] 109 mg/dL Critically high 74-106 [facility] Comment on above: Performed By: #### C MP ####[facility] [address]gej[address] [place] [address]Dr. Airam Tripathi Potassium [Moles/Vol] 4.2 mmol/L Normal 3.5-5.1 [facility] Comment on above: Performed By: #### C MP ####[facility] Oucwhxcgmo[address] [place] [address]Dr. Selenaneil Deuce Protein [Mass/Vol] 5.4 g/dL Critically low 6.4-8.2 [facility] Comment on above: Performed By: #### C MP ####[facility] [address]prln[address] [place] [address]Dr. Selenaneil Deuce Sodium [Moles/Vol] 135 mmol/L Critically low 136-145 Th [facility] Comment on above: Performed By: #### C MP ####[facility] [address]yqelpf[address] [place] [id number]. Airam Tripathi Urea nitrogen [Mass/Vol] 15.0 mg/dL Normal 7.0-18.0 [facility] Comment on above: Performed By: #### C MP ####[facility] [address] [place], [place] [address]SuKianna Tripathi Urea nitrogen/Creatinine [Mass ratio] 14.2 mg/mg Normal [facility] Comment on above: Performed By: #### C MP ####[facility] [address] [place], [place] [address]DfKianna Tripathi Operative Reporton Operative Report MR#: [id number] [facility] Pt. Name: Mabel Moser Room #: 0C [...] subscapularis. 3. Right shoulder proximal biceps tenotomy. LICENSED INSURANCE AGENT: Alex Serra M.D. ANESTHESIA: General. INDICATIONS: The patient is [...] A Carlos Reza M.D. Date Dict: 08/19/2021/11:02 Ivy/Carlos Reza M.D. Date Trans: 08/19/2021 11:37 A/carter DN_[id number] cc: Angle Santana M.D. [place] [id number] [facility] [place] [address] Normal [facility] POC GLUCOSE LABon 08-19-2021 Glucose [Mass/Vol] 77 mg/dL Normal 70-100 [facility] Comment on above: Performed By: #### 8 [id number] #### [facility] [address] 04-05-2021 CNPN Telephone (HEMASA) -- MABEL MOSER ([id number]) 1960 F Date Time Provider Department 04/05/21 YEVGENIY FORD During your visit today, we recorded the following information about you: Chana Gallegos [facility] 04/05/2021 7:57 AM Signed Records faxed to the cancer center at [facility]. Patient to follow with Dr. Liu. [...] TAKE 1 CAPSULE ONCE A DAY ORALLY (S)( TO SOON) - fentaNYL (DURAGESIC) 50 mcg/hr [...] Status:Closed by CHANA LEE on 04/05/21 Normal [facility] OBSOLETEon 01-11-2021 OBSOLETE Refill (HEMASA) -- MABEL MOSER ([id number]) 1960 F Date Time Provider Department 01/11/21 [...] kidney disease) stage 3, GFR 30-59 ml/min (HCC) [N18.30] Order(s):cyanocobalamin 1,000 mcg/mLINJECT 1 ML INTRAMUSCULARLY [...] Status:Closed by YEVGENIY FORD on 01/12/21 Normal [facility] Vital Signs Date Time Vital Sign Value Performing Clinician Facility 07-03-2023 12:00-0500 Body temperature 97.9 [degF] MD Angle Santana Work Phone: [facility] 07-03-2023 12:00-0500 Diastolic blood pressure 71 mm[Hg] MD Angle Santana Work Phone: [facility] 07-03-2023 12:00-0500 Heart rate 68 /min MD Angle Santana Work Phone: [facility] 07-03-2023 12:00-0500 Respiratory rate 16 /min MD Angle Santana Work Phone: [facility] 07-03-2023 12:00-0500 SaO2% (BldA) [Mass fraction] 100 % MD Angle Santana Work Phone: [facility] 07-03-2023 12:00-0500 Systolic blood pressure 121 mm[Hg] MD Angle Santana Work Phone: [facility] 07-03-2023 04:49-0500 Body weight 85.8 kg MD Angle Santana Work Phone: [facility] 06-30-2023 14:44-0500 Body height 157.48 cm MD Angle Santana Work Phone: [facility] 04-04-2023 16:20-0400 Body height 158.75 cm Aziz Bakhous Other [facility] Other 04-04-2023 16:20-0400 Body mass index (BMI) [Ratio] 31.46 kg/m2 Aziz Bakhous Other [facility] Other 04-04-2023 16:20-0400 Body temperature 98 [degF] Aziz Bakhous Other [facility] Other 04-04-2023 16:20-0400 Body weight 79.29 kg Aziz Bakhous Other [facility] Other 04-04-2023 16:20-0400 Diastolic blood pressure 81 mm[Hg] Aziz Bakhous Other [facility] Other 04-04-2023 16:20-0400 Respiratory rate 18 /min Aziz Bakhous Other [facility] Other 04-04-2023 16:20-0400 SaO2% (BldA) [Mass fraction] 98 % Aziz Bakhous Other [facility] Other 04-04-2023 16:20-0400 Systolic blood pressure 133 mm[Hg] Aziz Bakhoujohnnie Other [facility] Other 10-28-2022 22:23-0400 Body temperature 97.4 [degF] MD Angle Santana Work Phone: [facility] 10-28-2022 22:00-0400 Diastolic blood pressure 74 mm[Hg] MD Angle Santana Work Phone: [facility] 10-28-2022 22:00-0400 Heart rate 72 /min MD Angle Santana Work Phone: [facility] 10-28-2022 22:00-0400 Respiratory rate 20 /min MD Angle Santana Work Phone: [facility] 10-28-2022 22:00-0400 SaO2% (BldA) [Mass fraction] 97 % MD Angle Santana Work Phone: [facility] 10-28-2022 22:00-0400 Systolic blood pressure 169 mm[Hg] MD Angle Santana Work Phone: [facility] 10-28-2022 17:54-0400 Body height 157.48 cm MD Angle Santana Work Phone: [facility] 10-28-2022 17:54-0400 Body weight 83.7 kg MD Angle Santana Work Phone: [facility] 09-27-2022 12:00-0400 Body height 158.75 cm Donnieariel Tadjohnnie Other [facility] Other 09-27-2022 12:00-0400 Body mass index (BMI) [Ratio] 31.78 kg/m2 Raeann Mishrajohnnie Other [facility] Other 09-27-2022 12:00-0400 Body temperature 96.1 [degF] Raeann Tadjohnnie Other [facility] Other 09-27-2022 12:00-0400 Body weight 80.11 kg Azariel Mishras Other [facility] Other 09-27-2022 12:00-0400 Diastolic blood pressure 82 mm[Hg] Aziz Bakhous Other [facility] Other 09-27-2022 12:00-0400 Respiratory rate 18 /min Raeann Bakkendalls Other [facility] Other 09-27-2022 12:00-0400 SaO2% (BldA) [Mass fraction] 99 % Raeann Bakhous Other [facility] Other 09-27-2022 12:00-0400 Systolic blood pressure 140 mm[Hg] Aziz Bakhous Other [facility] Other 04-12-2022 14:00-0400 Body height 158.75 cm Raeann Mishras Other [facility] Other 04-12-2022 14:00-0400 Body mass index (BMI) [Ratio] 30.13 kg/m2 Azariel Harrisonhous Other [facility] Other 04-12-2022 14:00-0400 Body temperature 97.6 [degF] Aziz Bakhous Other [facility] Other 04-12-2022 14:00-0400 Body weight 75.93 kg Aziz Bakhous Other [facility] Other 04-12-2022 14:00-0400 Diastolic blood pressure 95 mm[Hg] Aziz Bakhous Other [facility] Other 04-12-2022 14:00-0400 Respiratory rate 18 /min Raeann Kirkpatrick Other [facility] Other 04-12-2022 14:00-0400 SaO2% (BldA) [Mass fraction] 98 % Raeann Kirkpatrick Other [facility] Other 04-12-2022 14:00-0400 Systolic blood pressure 175 mm[Hg] Raeann Kirkpatrick Other [facility] Other 06-16-2021 16:20-0500 Body height 158.75 cm Los Grissom Other [facility] Other 06-16-2021 16:20-0500 Body mass index (BMI) [Ratio] 30.88 kg/m2 Los Grissom Other [facility] Other 06-16-2021 16:20-0500 Body temperature 96.4 [degF] Los Grissom Other [facility] Other 06-16-2021 16:20-0500 Body weight 77.84 kg Los Rascongerald Other [facility] Other 06-16-2021 16:20-0500 Diastolic blood pressure 88 mm[Hg] Los Rascongerald Other [facility] Other 06-16-2021 16:20-0500 Respiratory rate 18 /min Los Rascongerald Other [facility] Other 06-16-2021 16:20-0500 SaO2% (BldA) [Mass fraction] 99 % Los Grissom Other [facility] Other 06-16-2021 16:20-0500 Systolic blood pressure 137 mm[Hg] Los Grissom Other [facility] Other Encounters Encounter Date Encounter Type Care Provider Facility Start: 06-29-2023 End: 07-03-2023 Evaluation and management of inpatient Jim Randhawa Facility:[facility] Start: 06-29-2023 End: 07-03-2023 Evaluation and management of inpatient MD Angle Santana Work Phone: [facility] [place] [facility] Work Phone: Start: 04-04-2023 End: 04-04-2023 ambulatory Aziz Bakhous Other [facility] Other Start: 04-04-2023 Office outpatient visit 25 minutes Aziz Bakhous [facility] Start: 04-03-2023 End: 04-03-2023 ambulatory Aziz Bakhous Other [facility] Other Start: 04-03-2023 Telephone encounter Aziz Bakhous [facility] Start: 02-22-2023 End: 02-22-2023 ambulatory RHIANNON BERNARD [facility] Start: 02-16-2023 ambulatory DUNCAN SONNY [facility] Start: 01-13-2023 End: 01-14-2023 ambulatory SHERLY ROSADO [facility] Start: 12-15-2022 End: 12-16-2022 ambulatory BENJIE MARCELOSUE [facility] Start: 12-12-2022 End: 12-12-2022 ambulatory Aziz Bakhous Other [facility] Other Start: 12-12-2022 Telephone encounter Aziz Bakhous [facility] Start: 12-08-2022 End: 12-08-2022 ambulatory Raeann Kirkpatrick Other [facility] Other Start: 12-08-2022 Telephone encounter Raeann Kirkpatrick [facility] Start: 11-30-2022 End: 11-30-2022 ambulatory [facility] Start: 11-22-2022 End: 11-22-[address] ANGLE SANTANA . Facility:[facility] Start: 11-22-2022 End: 11-22-2022 ambulatory SADIE DEL CASTILLO . Facility:[facility] Start: 11-16-2022 End: 11-16-[address] ANGLE SANTANA . Facility:[facility] Start: 11-07-2022 End: 11-07-2022 ambulatory [facility] Start: 11-04-2022 End: 11-05-2022 ambulatory SADIE DEL CASTILLO . Facility:[facility] Start: 11-03-2022 End: 11-03-[address] ANGLE SANTANA . Facility:[facility] Start: 10-31-2022 ambulatory SANTOS ROUSSEAU . Facili ty:[facility] Start: 10-28-2022 End: 10-29-2022 Emergency department patient visit Favian Helm Facility:[facility] Start: 10-28-2022 End: 10-28-2022 Emergency department patient visit MD Angle Santana Work Phone: [facility] Work Phone: Start: 10-28-2022 End: 10-28-2022 ambulatory RHIANNON [facility] Start: 10-27-2022 End: 10-28-2022 ambulatory SADIE DEL CASTILLO . Facility:[facility] Start: 10-25-2022 End: 10-26-2022 Evaluation and management of inpatient DR ANGLE SANTANA . Facility:[facility] Start: 10-19-2022 End: 10-19-[address] ANGLE SANTANA . Facility:[facility] Start: 10-12-2022 End: 10-13-[address] ANGLE SANTANA . Facility:[facility] Start: 10-12-2022 End: 10-12-2022 ambulatory FELECIA TAMLYN . Facility:[facility] Start: 10-11-2022 End: 10-11-2022 ambulatory NARENDRANATH LAKSHMIPATHY . Facility:[facility] Start: 10-10-2022 End: 10-10-2022 ambulatory [facility] Start: 10-05-2022 End: 10-07-[address] ANGLE SANTANA . Facility:[facility] Start: 10-05-2022 ambulatory FELECIA MILIAN . Facility: [facility] Start: 09-29-2022 End: 10-04-[address] ANGLE SANTANA . Facility:[facility] Start: 09-27-2022 End: 09-27-2022 ambulatory Raeann Kirkpatrick Other [facility] Other Start: 09-27-2022 Office outpatient visit 25 minutes Raeann Kirkpatrick [facility] Start: 09-21-2022 End: 09-22-[address] ANGLE SANTANA . Facility:[facility] Start: 09-20-2022 End: 09-21-2022 ambulatory SADIE DEL CASTILLO . Facility:[facility] Start: 09-19-2022 End: 09-20-[address] ANGLE SANTANA . Facility:[facility] Start: 09-19-2022 End: 09-20-2022 ambulatory RAEANN KIRKPATRICK Facility:[facility] Start: 08-24-2022 End: 09-12-[address] ANGLE SANTANA . Facility:[facility] Start: 08-23-2022 End: 08-23-2022 ambulatory Sue Leiva Other [facility] Other Start: 08-23-2022 Office outpatient ne w 30 minutes Sue Leiva [facility] Start: 08-16-2022 End: 08-17-[address] [...] 04-12-2022 End: 04-12-2022 ambulatory Raeann Kirkpatrick Other [facility] Other Start: 04-12-2022 Office outpatient visit 25 minutes Raeann Kirkpatrick [facility] Start: 04-06-[address] ANGLE SANTANA . Facili ty:[facility] Start: 03-31-2022 End: 04-20-[address] ANGLE SANTANA . Facility:[facility] Start: 03-03-2022 End: 03-22-[address] ANGLE SANTANA . Facility:[facility] Start: 01-27-2022 End: 01-28-[address] ANGLE SANTANA . Facility:[facility] Start: 01-27-2022 End: 02-22-[address] ANGLE SANATNA . Facility:[facility] Start: 01-19-2022 End: 01-20-2022 ambulatory ROBERT JOHNSTON Facility:[facility] Start: 01-11-2022 End: 01-11-[address] ANGLE SANTANA . Facility:[facility] Start: 01-10-2022 End: 01-11-2022 ambulatory Robert Johnston Facility:[facility] Start: 01-06-2022 End: 01-07-[address] ANGLE SANTANA . Facility: Start: 12-30-2021 End: 01-19-[address] ANGLE SANTANA . Facility: Start: 12-23-2021 End: 12-24-2021 ambulatory NNAMDI DEJESUS . Facility: Start: 12-07-2021 End: 12-22-[address] ANGLE SANTANA . Facility:[facility] Start: 12-07-2021 End: 12-07-[address] ANGLE SANTANA . Facility: Start: 08-19-2021 End: 08-20-2021 ambulatory CARLOS REZA Facility:[facility] Start: 06-16-2021 End: 06-16-2021 ambulatory Los Grissom Other [facility] Other Start: 06-16-2021 Office outpatient visit 25 minutes Los Grissom [facility] Start: 01-14-2019 End: 01-14-2019 Patient encounter procedure [facility] Start: 12-03-2018 End: 12-03-2018 Patient encounter procedure [facility] Procedures Date Procedure Procedure Detail Performing Clinician Start: 10-28-2022 CT of head without contrast MD Angle Santana Work Phone: Start: 10-28-2022 Plain chest X-ray MD Romero Work Phone: Start: 01-14-2019 DISCHARGE PATIENT NIRMAL LEWIS Start: 01-14-2019 DIET NPO, NOW NIRMAL Calderon Start: 01-14-2019 FULL CODE NIRMAL LEWIS Start: 01-14-2019 INITIATE OXYGEN THER APY PROTOCOL NIRMAL LEWIS Start: 01-14-2019 NOTIFY PHYSICIAN (SPECIFY) NIRMAL LEWIS Start: 01-14-2019 NURSING COMMUNICATION Nikita LEWIS Start: 01-14-2019 VERIFY INFORMED CONSENT NIRMAL Start: 01-14-2019 VITAL SIGNS NIRMAL LEWIS Start: 12-03-2018 DISCHARGE PATIENT NIRMAL LEWIS Start: 12-03-2018 DIET NPO, NOW NIRMAL Calderon Start: 12-03-2018 FULL CODE NIRMAL LEWIS Start: 12-03-2018 INITIATE OXYGEN THER APY PROTOCOL NIRMAL LEWIS Start: 12-03-2018 NOTIFY PHYSICIAN (SPECIFY) NIRMAL LEWIS Start: 12-03-2018 NURSING COMMUNICATION Nikita THOMPSON JOSHUA Start: 12-03-2018 VERIFY INFORMED CONSENT NIRMAL LEWIS Start: 12-03-2018 VITAL SIGNS NIRMAL LEWIS Plan of Treatment Date Care Activity Detail Author Start: 07-03-2023 [facility] Start: 06-29-2023 Hospital admission [facility] Start: 06-29-2023 Referral to neurological physiotherapist [facility] Blood chemistry [facility] Patient Education [facility] Work Phone: Patient referral [facility] Work Phone: Payers Date Payer Category Payer Self-pay [id number] 2017 Medicare [id number] 2017 Unknown [id number] 1960 Unknown [id number] 2.16.8 40.1.290981.3.579.2.173 1960 Unknown [id number] 2.16.8 40.1.449984.3.579.2.173 1960 Unknown [id number] 2.16.8 40.1.142767.3.579.2.647 1960 Unknown [id number] 2.16.8 40.1.820953.3.579.2.647 1960 Unknown [id number] 2.16.84 0.1.173816.3.579.2.593 1960 Unknown [id number] 2.16.84 0.1.284408.3.579.2.593 1962 Unknown [id number] 2.16.84 0.1.734825.3.579.2.593 1962 Unknown [id number] 2.16.84 0.1.333732.3.579.2.593 1962 Unknown [id number] 2.16.84 0.1.121626.3.579.2.593 1962 Unknown [id number] 2.16.84 0.1.499312.3.579.2.593 1962 Unknown [id number] 2.16.84 0.1.466154.3.579.2.593 1962 Unknown [id number] 2.16.84 0.1.349211.3.579.2.593 1962 Unknown [id number] 2.16.84 0.1.478611.3.579.2.593 1962 Unknown [id number] 2.16.84 0.1.871059.3.579.2.593 1962 Unknown [id number] 2.16.84 0.1.077954.3.579.2.593 1962 Unknown [id number] 2.16.84 0.1.116891.3.579.2.593 1962 Unknown [id number] 2.16.84 0.1.252624.3.579.2.593 1962 Unknown [id number] 2.16.84 0.1.957388.3.579.2.593 1962 Unknown [id number] 2.16.84 0.1.453385.3.579.2.593 1962 Unknown [id number] 2.16.84 0.1.936812.3.579.2.593 1962 Unknown [id number] 2.16.84 0.1.110036.3.579.2.593 1962 Unknown [id number] 2.16.84 0.1.841054.3.579.2.593 1962 Unknown [id number] 2.16.84 0.1.147042.3.579.2.593 1962 Unknown [id number] 2.16.84 0.1.720755.3.579.2.593 1962 Unknown [id number] 2.16.84 0.1.875145.3.579.2.593 1962 Unknown [id number] 2.16.84 0.1.803036.3.579.2.593 1962 Unknown [id number] 2.16.84 0.1.355790.3.579.2.593 1962 Unknown [id number] 2.16.84 0.1.568259.3.579.2.593 1962 Unknown [id number] 2.16.84 0.1.498588.3.579.2.593 1962 Unknown [id number] 2.16.84 0.1.331398.3.579.2.593 1962 Unknown [id number] 2.16.84 0.1.595312.3.579.2.593 1962 Unknown [id number] 2.16.84 0.1.808799.3.579.2.593 1962 Unknown [id number] 2.16.84 0.1.306449.3.579.2.593 1962 Unknown [id number] 2.16.84 0.1.568901.3.579.2.593 1962 Unknown [id number] 2.16.84 0.1.499313.3.579.2.593 1962 Unknown [id number] 2.16.84 0.1.803297.3.579.2.593 1962 Unknown [id number] 2.16.84 0.1.248747.3.579.2.593 1962 Unknown [id number] 2.16.84 0.1.331324.3.579.2.593 1962 Unknown [id number] 2.16.84 0.1.708358.3.579.2.593 1962 Unknown [id number] 2.16.84 0.1.568605.3.579.2.593 1962 Unknown [id number] 2.16.84 0.1.560859.3.579.2.593 1962 Unknown [id number] 2.16.84 0.1.469147.3.579.2.593 1962 Unknown [id number] 2.16.84 0.1.771370.3.579.2.593 1962 Unknown [id number] 2.16.84 0.1.866796.3.579.2.593 1962 Unknown [id number] 2.16.84 0.1.802446.3.579.2.593 1962 Unknown [id number] 2.16.84 0.1.271198.3.579.2.593 1962 Unknown [id number] 2.16.84 0.1.615527.3.579.2.593 1962 Unknown [id number] 2.16.84 0.1.262369.3.579.2.593 1962 Unknown [id number] 2.16.84 0.1.077189.3.579.2.593 1962 Unknown [id number] 2.16.84 0.1.007099.3.579.2.593 1957 Medicaid [id number] Medicare Medicare [id number] Unknown [id number] 2.1 [id number] Unknown [place] BC/BS [id number] Unknown [id number] 2.16.8 40.1.264599.3.579.2.531 Unknown [id number] 2.16.8 40.1.265684.3.579.2.531 Social History Date Type Detail Facility Unknown if ever smoked [facility] Other Sex Assigned At Sex Assigned At Bir th [facility] Other Start: 10-28-2022 End: 06-30-2023 Tobacco smoking status NHIS Never smoked tobacco (finding) [facility] Start: 1960 Sex Assigned At Female F [facility] Goals Date Patient Goal Desired Activity /State Functional Status Date Assessment Result Facility 07-03-2023 Functional status Patient at Baseline [facility] Work Phone: Mental Status Date Assessment Result Facility 07-03-2023 Cognitive function Cognitive Sta tus Patient at Baseline [facility] Work Phone: Clinical Notes 06-16-2021 to 07-03-2023 Note Date & Type Note Facility 07-03-2023 Progress note Note Date/Time July 03, 2023 12:18pm [facility] [address] [place] [address] Nephrology Progress Note Signed Patient: Mabel Moser MR#: [id number] : 1960 Acct:[id number] Age/Sex: 63 / F Adm Date: 4 Loc: Room: [address] [place] [address] Type: ADM IN Attending Dr: Jim Randhawa DO Copies to: ~ Date of Service: 07/03/2023 Subjective Subjective Narrative: Ms. Moser is a 63-year-old white female with history of CKD stage IIIa with baseline creatinine variable between 1.1 1.2 mg/dL with intermittent LEEANN relatedto CHF. Patient presented to the ER on 06/29 with progressive shortness of breathand bilateral lower extremity edema that has been going on for the last 2 days. Patient takes bumetanide at home. She denies any chest pain orthopnea or PND. No nausea or vomiting. She denies any diarrhea. Patient stated that she had intractable back pain and sciatica for which she has been taking Advil and acetaminophen as needed for the last few weeks. Other medical problems include mild liver cirrhosis related to alpha-1 antitrypsin deficiency and recurrent Hypernatremia currently maintained on bumetanide and urea. On arrival, BUN was elevated 117 and creatinine 3.16. Potassium is normal 4.6. She has mild acidosis with carbon oxide 15.0. Sodium however is normal at 134 mmol/L Interval history: Patient was seen and examined in her room. She would like to go home. She is doing physical therapy. Continues to be on room air. Blood pressure is well-controlled. Remains on Bumex 1 mg IV twice daily. She stated she continues to feel better. She had good breakfast this morning. No nausea no vomiting. No shortness of breath. No diarrhea. No nausea no vomiting . Exam Physical Exam Vital Signs: Temp Pulse Resp BP Pulse Ox O2 Del Method 98.1 F 72 16 118/74 99 Room Air 07/03/23 08:00 07/03/23 08:00 07/03/23 08:00 07/03/23 08:00 07/03/23 08:00 07/03/23 08:00 Narrative: General: No acute distress Head :atraumatic normocephalic Eyes: PERRLA. Neck: no JVD no bruit. Heart: S1-S2. RRR Respiratory: Clear to auscultation. No wheezing. No crackles Abdomen: Soft, positive bowel sounds,no tenderness. Neurology: Awake alert oriented x3. No focal deficits Extremity. No cyanosis. Bilateral lower extremities lymphedema with +1 pittingedema Skin: No skin rash Objective Intake and Output I&O: Intake & Output 06/30/23 07/01/23 07/02/23 07/03/23 23:59 23:59 23:59 23:59 Intake Total 1175 / 1175 1620 / 1620 2049 500 / 500 Balance 1175 / 1175 1620 / 1620 2049 500 / 500 Weight 88 kg 87.6 kg 87.2 kg 85.8 kg Meds and Allergies Meds: Active Medications Acetaminophen (Acetaminophen 325 Mg Tablet) 650 mg PO Q6HR PRN PRN Reason: Pain Scale 1 - 3 or fever Stop: 06/28/24 21:34 Last Admin: 07/02/23 05:48 Dose: 650 mg Albuterol (Albuterol Neb 2.5 Mg/3 Ml Vial.Neb) 2.5 mg INHALATION Q3H PRN PRN Reason: Cough/Wheeze Stop: 06/28/24 21:34 Alprazolam (Alprazolam 0.5 Mg Tablet) 0.5 mg PO BID PRN PRN Reason: Anxiety Stop: 12/26/23 21:39 Amitriptyline HCl (Amitriptyline 50 Mg Tablet) 150 mg PO QHS [facility] Stop: 06/29/24 21:59 Last Admin: 07/02/23 21:00 Dose: 150 mg Aripiprazole (Aripiprazole 2 Mg Tablet) 2 mg PO DAILY LOREN Stop: 06/29/24 08:59 Last Admin: 07/03/23 08:13 Dose: 2 mg Bisacodyl (Bisacodyl 5 Mg Tablet.) 10 mg PO DAILY PRN PRN Reason: Constipation Stop: 06/28/24 21:34 Bumetanide (Bumetanide 1 Mg/4 Ml Vial) 1 mg IV-PUSH BID@0800,1600 [facility] Stop: 06/29/24 07:59 Last Admin: 07/03/23 08:14 Dose: 1 mg Calcium Acetate (Calcium Acetate 667 Mg Capsule) 667 mg PO BID.WITH.MEALS [facility] Stop: 06/29/24 07:59 Last Admin: 07/03/23 08:13 Dose: 667 mg Duloxetine HCl (Duloxetine 60 Mg Capsule.) 120 mg PO DAILY [facility] Stop: 06/29/24 08:59 Last Admin: 07/03/23 08:13 Dose: 120 mg Fentanyl (Fentanyl Patch 100 Mcg/Hour Patch.Td72) 100 mcg TRANSDERML Q72H [facility]; Protocol Last Admin: 07/03/23 08:12 Dose: 100 mcg Ferrous Sulfate (Ferrous Sulfate 324 Mg Tablet.) 324 mg PO DAILY [facility] Stop: 06/29/24 08:59 Last Admin: 07/03/23 08:13 Dose: 324 mg Gabapentin (Gabapentin 100 Mg Capsule) 100 mg PO TID [facility] Stop: 06/29/24 08:59 Last Admin: 07/03/23 08:13 Dose: 100 mg Guaifenesin/Dextromethorphan (Guaif/Dextromethorphan Syrup 10 Ml Udc) 10 ml PO Q8H PRN PRN Reason: Cough Stop: 06/28/24 21:34 Heparin Sodium (Porcine) (Heparin 5,000 Unit/Ml Vial) 5,000 unit SUBCUT Q12HR [facility] Stop: 06/29/24 08:59 Last Admin: 07/03/23 08:14 Dose: 5,000 unit Levothyroxine Sodium (Levothyroxine 100 Mcg Tablet) 100 mcg PO DAILY@0630 [facility] Stop: 06/29/24 06:29 Last Admin: 07/03/23 06:23 Dose: 100 mcg Linaclotide (Linaclotide 290 Mcg Capsule) 290 mcg PO Q48HR LOREN Stop: 06/29/24 08:59 Last Admin: 07/02/23 08:59 Dose: 290 mcg Liothyronine Sodium (Liothyronine 25 Mcg Tablet) 25 mcg PO DAILY@0630 [facility] Stop: 06/29/24 10:59 Last Admin: 07/03/23 06:23 Dose: 25 mcg Loratadine (Loratadine 10 Mg Tablet) 10 mg PO DAILY PRN PRN Reason: Allergy Symptoms Stop: 06/29/24 06:54 Melatonin (Melatonin 5 Mg Tablet) 5 mg PO QHS PRN PRN Reason: Insomnia Stop: 06/28/24 21:34 Metoprolol Tartrate (Metoprolol Tartrate 25 Mg Tablet) 25 mg PO BID [facility] Stop: 06/29/24 20:59 Last Admin: 07/03/23 08:14 Dose: 25 mg Ondansetron HCl (Ondansetron 4 Mg/2 Ml Vial) 4 mg IV-PUSH Q8H PRN PRN Reason: Nausea And Vomiting Stop: 06/28/24 21:34 Oxycodone/Acetaminophen (Oxycodone/Acetaminophen 5-325 Mg Tablet) 2 tab PO Q6H PRN PRN Reason: Pain Last Admin: 07/03/23 11:25 Dose: 2 tab Pantoprazole Sodium (Pantoprazole 40 Mg Tablet.Dr) 40 mg PO BID [facility] Stop: 06/29/24 08:59 Last Admin: 07/03/23 08:13 Dose: 40 mg Primidone (Primidone 50 Mg Tablet) 100 mg PO HS [facility] Stop: 06/29/24 21:59 Last Admin: 07/02/23 21:00 Dose: 100 mg Sevelamer Carbonate (Sevelamer Carbonate 800 Mg Tablet) 800 mg PO TID.WITH.MEALS [facility] Stop: 06/29/24 11:59 Last Admin: 07/03/23 11:22 Dose: 800 mg Sodium Chloride (Sodium Chloride 0.9 % 10 Ml Syringe) 10 ml IV-PUSH Q8H PRN PRN Reason: Flush Stop: 06/30/24 15:29 Last Admin: 07/01/23 16:43 Dose: 10 ml Tizanidine HCl (Tizanidine 4 Mg Tablet) 4 mg PO Q8H PRN PRN Reason: Muscle Spasticity Stop: 06/28/24 21:39 Last Admin: 07/02/23 05:48 Dose: 4 mg Allergies amoxicillin [From Augmentin] Adverse Reaction (Verified 10/28/22 17:44) Diarrhea clavulanic acid [From Augmentin] Adverse Reaction (Verified 10/28/22 17:44) Diarrhea povidone-iodine [From Betadine] Adverse Reaction (Verified 10/28/22 17:44) Rash Sulfa (Sulfonamide Antibiotics) Adverse Reaction (Verified 10/28/22 17:44) Rash Results Labs 07/02/23 05:55 07/03/23 04:00 Labs: 07/03/23 04:00 BUN 95 H Creatinine 2.32 H Iron Saturation 22.8 Ferritin 71.9 Radiology Impressions Impressions - last 24 hours: Any impression(s) listed above is documentation that was entered by the reading physician into a diagnostic report(s) for Mabel Moser. I have reviewed the report(s) and am incorporating any findings in the treatment plan of this patient where applicable. A&P - Nephrology Assessment/Plan (1) LEEANN (acute kidney injury): Assessment/Problem Details: Patient presented with LEEANN superimposed on CKD stage IIIa in the setting of recurrent CHF. Patient also has been on NSAIDs that may precipitate salt and water retention in addition to LEEANN. Patient has borderline low blood pressure with fentanyl patch. (2) Acute heart failure: Assessment/Problem Details: Patient has bilateral lower extremity edema and progressive shortness of breath.EF%is not available however patient on sacubitril/valsartan indicated of HFrEF. (3) CKD (chronic kidney disease) stage 3, GFR 30-59 ml/min: Assessment/Problem Details: Patient has mild CKD stage IIIa in the setting of recurrent CHF (4) Hypertension: Assessment/Problem Details: Patient has a history of hypertension currently low blood pressure with pain medications (5) Anemia: Assessment/Problem Details: Patient developed anemia in the setting of CKD with hemoglobin down to 8.4 g/dL. Anemia is normocytic, normochromic. Plan * Kidney function stable. Serum creatinine 2.3 mg deciliter .baseline c reatinine around 1.6 mg deciliter * I will switch Bumex from IV to oral 1 mg twice daily. . * Blood pressure well-controlled. Continue holding Entresto for now. Continue same current dose of metoprolol * Patient has adequate iron, folate and vitamin B12 storage. Patient on oral iron ferrous sulfate 324 mg p.o. daily. patient's anemia likely from CKD. I will give the patient 1 dose of Aranesp 60 mcg subcu * Monitor daily intake and output and renal panel during hospital stay. Okay to discharge patient from nephrology standpoint with the Bumex 1 mg twice. Continue holding Entresto at discharge. The latter medication can be resumed asoutpatient when creatinine is back to baseline Documented By: Raeann Kirkpatrick MD 07/03/23 1213 Signed By: <Electronically signed by Raeann Kirkpatrick MD> 07/03/23 1218 [facility] Work Phone: 1(444) 370-305801-07-2024 Progress note Author Jim Randhawa [facility] July 02, 2023 11:26am Note Date/Time July 02, 2023 11 :26am [facility] [address] [place] [address] Hospitalist Progress Note Signed Patient: Mabel Moser MR#: [id number] : 1960 Acct:[id number] Age/Sex: 63 / F Adm Date: 4 Loc: Room: [address] [place] [address] Type: ADM IN Attending Dr: Jim Randhawa DO Copies to: ~ Date of Service: 07/02/2023 Subjective Subjective Narrative: Seen and evaluated, sitting up in the chair and feels better, She states her breathing continues to improve and her lower extremity edema is also improved. She states her legs are no longer as itchy, the there is 0 pain, the skin is looser around her tibia and ankles. Exam Physical Exam Vital Signs: Temp Pulse Resp BP Pulse Ox O2 Del Method 97.6 F 74 18 104/62 100 Room Air 07/02/23 11:13 07/02/23 11:13 07/02/23 11:13 07/02/23 11:13 07/02/23 11:13 07/02/23 11:13 Narrative: General: Awake alert, no acute distress HEENT: head atraumatic, normocephalic, moist mucous membranes Neck: supple no masses, no lymphadenopathy CVS: regular rate and rhythm, no murmurs or gallops Respiratory: clear to auscultation bilaterally, no wheezing or crackles, symmetric expansion GI: soft, nondistended, nontender, positive bowel sounds with no organomegaly Extremity: moves all extremities, no restrictions of movements, +3 pitting edemain B/L le below the knee and +1-2 above the knee, overall worse on the right Neuro: AOx3, CN II-VII intact. Moves all extremities in all planes of motion. Skin: dry, intact no rashes or lesions Objective Lab Results 07/02/23 05:55 07/02/23 05:55 Meds Allergies and Active Meds Allergies amoxicillin [From Augmentin] Adverse Reaction (Verified 10/28/22 17:44) Diarrhea clavulanic acid [From Augmentin] Adverse Reaction (Verified 10/28/22 17:44) Diarrhea povidone-iodine [From Betadine] Adverse Reaction (Verified 10/28/22 17:44) Rash Sulfa (Sulfonamide Antibiotics) Adverse Reaction (Verified 10/28/22 17:44) Rash Active Meds: Active Medications Generic Name Dose Route Start Last Admin Trade Name Freq PRN Reason Stop Dose Admin Acetaminophen 650 mg 06/29/23 21:35 07/02/23 05:48 Acetaminophen 325 Mg Tablet PO 06/28/24 21:34 650 mg Q6HR PRN Administration Pain Scale 1 - 3 or fever Albuterol 2.5 mg 06/29/23 21:35 Albuterol Neb 2.5 Mg/3 Ml Vial.Neb INHALATION 06/28/24 21:34 Q3H PRN Cough/Wheeze Alprazolam 0.5 mg 06/29/23 21:40 Alprazolam 0.5 Mg Tablet PO 12/26/23 21:39 BID PRN Anxiety Amitriptyline HCl 150 mg 06/30/23 22:00 07/01/23 21:21 Amitriptyline 50 Mg Tablet PO 06/29/24 21:59 150 mg QHS LOREN Administration Aripiprazole 2 mg 06/30/23 09:00 07/02/23 08:55 Aripiprazole 2 Mg Tablet PO 06/29/24 08:59 2 mg DAILY LOREN Administration Bisacodyl 10 mg 06/29/23 21:35 Bisacodyl 5 Mg Tablet. PO 06/28/24 21:34 DAILY PRN Constipation Bumetanide 1 mg 06/30/23 08:00 07/02/23 08:55 Bumetanide 1 Mg/4 Ml Vial IV-PUSH 06/29/24 07:59 1 mg BID@0800,1600 LOREN Administration Calcium Acetate 667 mg 06/30/23 08:00 07/02/23 08:55 Calcium Acetate 667 Mg Capsule PO 06/29/24 07:59 667 mg BID.WITH.MEALS LOREN Administration Duloxetine HCl 120 mg 06/30/23 09:00 07/02/23 08:59 Duloxetine 60 Mg Capsule. PO 06/29/24 08:59 120 mg DAILY LOREN Administration Fentanyl 100 mcg 06/30/23 09:00 06/30/23 09:31 Fentanyl Patch 100 Mcg/Hour Patch.Td72 TRANSDERML 100 mcg Q72H LOREN Administration Protocol Ferrous Sulfate 324 mg 06/30/23 09:00 07/02/23 08:55 Ferrous Sulfate 324 Mg Tablet. PO 06/29/24 08:59 324 mg DAILY LOREN Administration Gabapentin 100 mg 06/30/23 09:00 07/02/23 08:55 Gabapentin 100 Mg Capsule PO 06/29/24 08:59 100 mg TID LOREN Administration Guaifenesin/Dextromethorphan 10 ml 06/29/23 21:35 Guaif/Dextromethorphan Syrup 10 Ml Udc PO 06/28/24 21:34 Q8H PRN Cough Heparin Sodium (Porcine) 5,000 unit 06/30/23 09:00 07/02/23 08:55 Heparin 5,000 Unit/Ml Vial SUBCUT 06/29/24 08:59 5,000 unit Q12HR LOREN Administration Levothyroxine Sodium 100 mcg 06/30/23 06:30 07/02/23 05:48 Levothyroxine 100 Mcg Tablet PO 06/29/24 06:29 100 mcg DAILY@0630 LOREN Administration Linaclotide 290 mcg 06/30/23 09:00 07/02/23 08:59 Linaclotide 290 Mcg Capsule PO 06/29/24 08:59 290 mcg Q48HR LOREN Administration Liothyronine Sodium 25 mcg 07/01/23 06:30 07/02/23 05:48 Liothyronine 25 Mcg Tablet PO 06/29/24 10:59 25 mcg DAILY@0630 LOREN Administration Loratadine 10 mg 06/30/23 06:55 Loratadine 10 Mg Tablet PO 06/29/24 06:54 DAILY PRN Allergy Symptoms Melatonin 5 mg 06/29/23 21:35 Melatonin 5 Mg Tablet PO 06/28/24 21:34 QHS PRN Insomnia Metoprolol Tartrate 25 mg 06/30/23 21:00 07/02/23 08:55 Metoprolol Tartrate 25 Mg Tablet PO 06/29/24 20:59 25 mg BID LOREN Administration Ondansetron HCl 4 mg 06/29/23 21:35 Ondansetron 4 Mg/2 Ml Vial IV-PUSH 06/28/24 21:34 Q8H PRN Nausea And Vomiting Oxycodone/Acetaminophen 2 tab 06/29/23 21:40 07/02/23 02:00 Oxycodone/Acetaminophen 5-325 Mg Tablet PO 2 tab Q6H PRN Administration Pain Pantoprazole Sodium 40 mg 06/30/23 09:00 07/02/23 08:55 Pantoprazole 40 Mg Tablet.Dr PO 06/29/24 08:59 40 mg BID LOREN Administration Primidone 100 mg 06/30/23 22:00 07/01/23 21:21 Primidone 50 Mg Tablet PO 06/29/24 21:59 100 mg HS LOREN Administration Sevelamer Carbonate 800 mg 06/30/23 12:00 07/02/23 11:16 Sevelamer Carbonate 800 Mg Tablet PO 06/29/24 11:59 800 mg TID.WITH.MEALS LOREN Administration Sodium Chloride 10 ml 07/01/23 15:27 07/01/23 16:43 Sodium Chloride 0.9 % 10 Ml Syringe IV-PUSH 06/30/24 15:29 10 ml Q8H PRN Administration Flush Tizanidine HCl 4 mg 06/29/23 21:40 07/02/23 05:48 Tizanidine 4 Mg Tablet PO 06/28/24 21:39 4 mg Q8H PRN Administration Muscle Spasticity A&P - Hospitalist Assessment/Plan (1) Acute heart failure: (2) CKD (chronic kidney disease) stage 3, GFR 30-59 ml/min: (3) Anemia: (4) Hypertension: Plan Acute on chronic heart failure type unknown. Inpatient admission Cardiac telemetry Strict input output Daily weight Low-sodium diet Bumex 1 mg twice daily IV BMP daily, replenish electrolytes as needed Her Cr baseline appears to be 1.6 based on chart review from the records on her phone Echocardiogram pending Nephrology consult, appreciate recommendations Acute on chronic kidney disease Strict input output Bumex IV twice daily BMP daily Nephrology consult Iron stores and reticulocyte count ordered Hypertension: Resume Lopressor twice daily/will hold Entresto for now/nephrologywas consulted Pulmonary hypertension: Echocardiogram Hypothyroidism: Resume Synthroid DVT prophylaxis: Heparin subcu Documented By: Jim Randhawa DO 07/02/23 1123 Signed By: <Electronically signed by Jim Randhawa DO> 07/02/23 [facility] Work Phone: 1(264) 134-969901-07-2024 Progress note Author [facility] July 02, 2023 10:42am Note Date/Time July 02, 2023 10 :42am [facility] [address] [place] [address] Nephrology Progress Note Signed Patient: Mabel Moser MR#: [id number] : 1960 Acct:[id number] Age/Sex: 63 / F Adm Date: 4 Loc: Room: [address] [place] [address] Type: ADM IN Attending Dr: Jim Randhawa DO Copies to: ~ Date of Service: 07/02/2023 Subjective Subjective Narrative: Ms. Moser is a 63-year-old white female with history of CKD stage IIIa with baseline creatinine variable between 1.1 1.2 mg/dL with intermittent LEEANN relatedto CHF. Patient presented to the ER on 06/29 with progressive shortness of breathand bilateral lower extremity edema that has been going on for the last 2 days. Patient takes bumetanide at home. She denies any chest pain orthopnea or PND. No nausea or vomiting. She denies any diarrhea. Patient stated that she had intractable back pain and sciatica for which she has been taking Advil and acetaminophen as needed for the last few weeks. Other medical problems include mild liver cirrhosis related to alpha-1 antitrypsin deficiency and recurrent Hypernatremia currently maintained on bumetanide and urea. On arrival, BUN was elevated 117 and creatinine 3.16. Potassium is normal 4.6. She has mild acidosis with carbon oxide 15.0. Sodium however is normal at 134 mmol/L Interval history: Patient is up in the chair. She is still on bumetanide 1 mg IV twice a day withimprovement of CHF and edema. She still has edema however she stated that is much better. Creatinine continues to improve down to 2.31 mg/dL compared to 3.16 on admission. BUN also down to 100 mg/dL with diuresis per Patient was started on bumetanide 1 mg twice a day for edema and manifestation of congestive heart failure. Serum creatinine was elevated on admission 3.16, repeat BMP still pending. Hemoglobin did drop down to 8.4 g/dL with no apparentreason. She denies any hematemesis or melena. Patient has normocytic normochromic anemia. Patient denies nausea or vomiting. No chest pain. Exam Physical Exam Vital Signs: Temp Pulse Resp BP Pulse Ox O2 Del Method 36.6 C 73 18 94/58 L 100 Room Air 07/02/23 08:50 07/02/23 08:50 07/02/23 08:50 07/02/23 08:50 07/02/23 08:50 07/02/23 08:55 Narrative: Constitutional: Appears comfortable and not in distress HEENT: No pallor or Jaundice Cardiovascular: RRR, normal S1-S2, no gallop or rub, No JVD Respiratory: Good bilateral air entry no wheezing or crackles Gastrointestinal: Soft, non tender, positive bowel sounds Extremities: 2+ edema. Skin: No rashes or bruises Neurology: Awake, alert, oriented ?3, No focal motor or sensory deficits Psych: Normal mood and affect Objective Intake and Output I&O: Intake & Output 06/29/23 06/30/23 07/01/23 07/02/23 23:59 23:59 23:59 23:59 Intake Total 1175 / 1175 1620 / 1620 500 / 500 Balance 1175 / 1175 1620 / 1620 500 / 500 Weight 87.5 kg 88 kg 87.6 kg 87.2 kg Meds and Allergies Meds: Active Medications Acetaminophen (Acetaminophen 325 Mg Tablet) 650 mg PO Q6HR PRN PRN Reason: Pain Scale 1 - 3 or fever Stop: 06/28/24 21:34 Last Admin: 07/02/23 05:48 Dose: 650 mg Albuterol (Albuterol Neb 2.5 Mg/3 Ml Vial.Neb) 2.5 mg INHALATION Q3H PRN PRN Reason: Cough/Wheeze Stop: 06/28/24 21:34 Alprazolam (Alprazolam 0.5 Mg Tablet) 0.5 mg PO BID PRN PRN Reason: Anxiety Stop: 12/26/23 21:39 Amitriptyline HCl (Amitriptyline 50 Mg Tablet) 150 mg PO QHS [facility] Stop: 06/29/24 21:59 Last Admin: 07/01/23 21:21 Dose: 150 mg Aripiprazole (Aripiprazole 2 Mg Tablet) 2 mg PO DAILY [facility] Stop: 06/29/24 08:59 Last Admin: 07/02/23 08:55 Dose: 2 mg Bisacodyl (Bisacodyl 5 Mg Tablet.) 10 mg PO DAILY PRN PRN Reason: Constipation Stop: 06/28/24 21:34 Bumetanide (Bumetanide 1 Mg/4 Ml Vial) 1 mg IV-PUSH BID@0800,1600 [facility] Stop: 06/29/24 07:59 Last Admin: 07/02/23 08:55 Dose: 1 mg Calcium Acetate (Calcium Acetate 667 Mg Capsule) 667 mg PO BID.WITH.MEALS [facility] Stop: 06/29/24 07:59 Last Admin: 07/02/23 08:55 Dose: 667 mg Duloxetine HCl (Duloxetine 60 Mg Capsule.) 120 mg PO DAILY [facility] Stop: 06/29/24 08:59 Last Admin: 07/02/23 08:59 Dose: 120 mg Fentanyl (Fentanyl Patch 100 Mcg/Hour Patch.Td72) 100 mcg TRANSDERML Q72H [facility]; Protocol Last Admin: 06/30/23 09:31 Dose: 100 mcg Ferrous Sulfate (Ferrous Sulfate 324 Mg Tablet.) 324 mg PO DAILY [facility] Stop: 06/29/24 08:59 Last Admin: 07/02/23 08:55 Dose: 324 mg Gabapentin (Gabapentin 100 Mg Capsule) 100 mg PO TID [facility] Stop: 06/29/24 08:59 Last Admin: 07/02/23 08:55 Dose: 100 mg Guaifenesin/Dextromethorphan (Guaif/Dextromethorphan Syrup 10 Ml Udc) 10 ml PO Q8H PRN PRN Reason: Cough Stop: 06/28/24 21:34 Heparin Sodium (Porcine) (Heparin 5,000 Unit/Ml Vial) 5,000 unit SUBCUT Q12HR [facility] Stop: 06/29/24 08:59 Last Admin: 07/02/23 08:55 Dose: 5,000 unit Levothyroxine Sodium (Levothyroxine 100 Mcg Tablet) 100 mcg PO DAILY@0630 [facility] Stop: 06/29/24 06:29 Last Admin: 07/02/23 05:48 Dose: 100 mcg Linaclotide (Linaclotide 290 Mcg Capsule) 290 mcg PO Q48HR [facility] Stop: 06/29/24 08:59 Last Admin: 07/02/23 08:59 Dose: 290 mcg Liothyronine Sodium (Liothyronine 25 Mcg Tablet) 25 mcg PO DAILY@0630 [facility] Stop: 06/29/24 10:59 Last Admin: 07/02/23 05:48 Dose: 25 mcg Loratadine (Loratadine 10 Mg Tablet) 10 mg PO DAILY PRN PRN Reason: Allergy Symptoms Stop: 06/29/24 06:54 Melatonin (Melatonin 5 Mg Tablet) 5 mg PO QHS PRN PRN Reason: Insomnia Stop: 06/28/24 21:34 Metoprolol Tartrate (Metoprolol Tartrate 25 Mg Tablet) 25 mg PO BID [facility] Stop: 06/29/24 20:59 Last Admin: 07/02/23 08:55 Dose: 25 mg Ondansetron HCl (Ondansetron 4 Mg/2 Ml Vial) 4 mg IV-PUSH Q8H PRN PRN Reason: Nausea And Vomiting Stop: 06/28/24 21:34 Oxycodone/Acetaminophen (Oxycodone/Acetaminophen 5-325 Mg Tablet) 2 tab PO Q6H PRN PRN Reason: Pain Last Admin: 07/02/23 02:00 Dose: 2 tab Pantoprazole Sodium (Pantoprazole 40 Mg Tablet.Dr) 40 mg PO BID LOREN Stop: 06/29/24 08:59 Last Admin: 07/02/23 08:55 Dose: 40 mg Primidone (Primidone 50 Mg Tablet) 100 mg PO HS LOREN Stop: 06/29/24 21:59 Last Admin: 07/01/23 21:21 Dose: 100 mg Sevelamer Carbonate (Sevelamer Carbonate 800 Mg Tablet) 800 mg PO TID.WITH.MEALS LOREN Stop: 06/29/24 11:59 Last Admin: 07/02/23 08:55 Dose: 800 mg Sodium Chloride (Sodium Chloride 0.9 % 10 Ml Syringe) 10 ml IV-PUSH Q8H PRN PRN Reason: Flush Stop: 06/30/24 15:29 Last Admin: 07/01/23 16:43 Dose: 10 ml Tizanidine HCl (Tizanidine 4 Mg Tablet) 4 mg PO Q8H PRN PRN Reason: Muscle Spasticity Stop: 06/28/24 21:39 Last Admin: 07/02/23 05:48 Dose: 4 mg Allergies amoxicillin [From Augmentin] Adverse Reaction (Verified 10/28/22 17:44) Diarrhea clavulanic acid [From Augmentin] Adverse Reaction (Verified 10/28/22 17:44) Diarrhea povidone-iodine [From Betadine] Adverse Reaction (Verified 10/28/22 17:44) Rash Sulfa (Sulfonamide Antibiotics) Adverse Reaction (Verified 10/28/22 17:44) Rash Results Labs 07/02/23 05:55 07/02/23 05:55 Labs: 07/01/23 07/02/23 10:10 05:55 BUN 104 H 100 H Creatinine 2.63 H D 2.31 H Radiology Impressions Impressions - last 24 hours: Any impression(s) listed above is documentation that was entered by the reading physician into a diagnostic report(s) for Mabel Moser. I have reviewed the report(s) and am incorporating any findings in the treatment plan of this patient where applicable. A&P - Nephrology Assessment/Plan (1) LEEANN (acute kidney injury): Assessment/Problem Details: Patient presented with LEEANN superimposed on CKD stage IIIa in the setting of recurrent CHF. Patient also has been on NSAIDs that may precipitate salt and water retention in addition to LEEANN. Patient has borderline low blood pressure with fentanyl patch. (2) Acute heart failure: Assessment/Problem Details: Patient has bilateral lower extremity edema and progressive shortness of breath.EF%is not available however patient on sacubitril/valsartan indicated of HFrEF. (3) CKD (chronic kidney disease) stage 3, GFR 30-59 ml/min: Assessment/Problem Details: Patient has mild CKD stage IIIa in the setting of recurrent CHF (4) Hypertension: Assessment/Problem Details: Patient has a history of hypertension currently low blood pressure with pain medications (5) Anemia: Assessment/Problem Details: Patient developed anemia in the setting of CKD with hemoglobin down to 8.4 g/dL. Anemia is normocytic, normochromic. Plan * Patient still has significant edema with gradual improvement of BUN and creatinine with IV bumetanide. Patient may benefit from additional few days of IV bumetanide. Patient will not tolerate more aggressive diuresis because of borderline low blood pressure. * Blood pressure still borderline, sacubitril/valsartan is on hold. Metoprolol was decreased to 25 mg twice daily. * For anemia, will check iron stores, B12 and folate acid. Will check reticulocyte count. Patient has CKD with possible need for erythropoietin if no other reasons for anemia found. * Monitor daily intake and output and renal panel during hospital stay. Documented By: Los Grissom MD 07/02/23 1036 Signed By: <Electronically signed by MD Los Grissom> 07/02/23 1042 [facility] Work Phone: 1(413) 585-904501-06-2024 Progress note Author Jim Randhawa [facility] July 01, 2023 1:52pm Note Date/Time July 01, 2023 1: 37pm [facility] [address] [place] [address] Hospitalist Progress Note Signed Patient: Mabel Moser MR#: [id number] : 1960 Acct:[id number] Age/Sex: 63 / F Adm Date: 4 Loc: 3T Room: [address] [place] [address] Type: ADM IN Attending Dr: Jim Randhawa DO Copies to: ~ Date of Service: 07/01/2023 Subjective Subjective Narrative: Seen and evaluated, sitting up in the chair and feels better, breathing well, still with LE edema Exam Physical Exam Vital Signs: Temp Pulse Resp BP Pulse Ox O2 Del Method 97.6 F 61 18 102/71 98 Room Air 07/01/23 11:50 07/01/23 11:50 07/01/23 11:50 07/01/23 11:50 07/01/23 11:50 07/01/23 11:50 Narrative: General: Awake alert, no acute distress HEENT: head atraumatic, normocephalic, moist mucous membranes Neck: supple no masses, no lymphadenopathy CVS: regular rate and rhythm, no murmurs or gallops Respiratory: clear to auscultation bilaterally, no wheezing or crackles, symmetric expansion GI: soft, nondistended, nontender, positive bowel sounds with no organomegaly Extremity: moves all extremities, no restrictions of movements, +3 pitting edemain B/L le below the knee and +1-2 above the knee, overall worse on the right Neuro: AOx3, CN II-VII intact. Moves all extremities in all planes of motion. Skin: dry, intact no rashes or lesions Objective Lab Results 07/01/23 10:10 Meds Allergies and Active Meds Allergies amoxicillin [From Augmentin] Adverse Reaction (Verified 10/28/22 17:44) Diarrhea clavulanic acid [From Augmentin] Adverse Reaction (Verified 10/28/22 17:44) Diarrhea povidone-iodine [From Betadine] Adverse Reaction (Verified 10/28/22 17:44) Rash Sulfa (Sulfonamide Antibiotics) Adverse Reaction (Verified 10/28/22 17:44) Rash Active Meds: Active Medications Generic Name Dose Route Start Last Admin Trade Name Freq PRN Reason Stop Dose Admin Acetaminophen 650 mg 06/29/23 21:35 Acetaminophen 325 Mg Tablet PO 06/28/24 21:34 Q6HR PRN Pain Scale 1 - 3 or fever Albuterol 2.5 mg 06/29/23 21:35 Albuterol Neb 2.5 Mg/3 Ml Vial.Neb INHALATION 06/28/24 21:34 Q3H PRN Cough/Wheeze Alprazolam 0.5 mg 06/29/23 21:40 Alprazolam 0.5 Mg Tablet PO 12/26/23 21:39 BID PRN Anxiety Amitriptyline HCl 150 mg 06/30/23 22:00 06/30/23 21:17 Amitriptyline 50 Mg Tablet PO 06/29/24 21:59 150 mg QHS LOREN Administration Aripiprazole 2 mg 06/30/23 09:00 07/01/23 08:21 Aripiprazole 2 Mg Tablet PO 06/29/24 08:59 2 mg DAILY LOREN Administration Bisacodyl 10 mg 06/29/23 21:35 Bisacodyl 5 Mg Tablet. PO 06/28/24 21:34 DAILY PRN Constipation Bumetanide 1 mg 06/30/23 08:00 07/01/23 08:21 Bumetanide 1 Mg/4 Ml Vial IV-PUSH 06/29/24 07:59 1 mg BID@0800,1600 LOREN Administration Calcium Acetate 667 mg 06/30/23 08:00 07/01/23 08:20 Calcium Acetate 667 Mg Capsule PO 06/29/24 07:59 667 mg BID.WITH.MEALS LROEN Administration Duloxetine HCl 120 mg 06/30/23 09:00 07/01/23 08:20 Duloxetine 60 Mg Capsule. PO 06/29/24 08:59 120 mg DAILY LOREN Administration Fentanyl 100 mcg 06/30/23 09:00 06/30/23 09:31 Fentanyl Patch 100 Mcg/Hour Patch.Td72 TRANSDERML 100 mcg Q72H LOREN Administration Protocol Ferrous Sulfate 324 mg 06/30/23 09:00 07/01/23 08:20 Ferrous Sulfate 324 Mg Tablet. PO 06/29/24 08:59 324 mg DAILY LOREN Administration Gabapentin 100 mg 06/30/23 09:00 07/01/23 08:20 Gabapentin 100 Mg Capsule PO 06/29/24 08:59 100 mg TID LOREN Administration Guaifenesin/Dextromethorphan 10 ml 06/29/23 21:35 Guaif/Dextromethorphan Syrup 10 Ml Udc PO 06/28/24 21:34 Q8H PRN Cough Heparin Sodium (Porcine) 5,000 unit 06/30/23 09:00 07/01/23 08:21 Heparin 5,000 Unit/Ml Vial SUBCUT 06/29/24 08:59 5,000 unit Q12HR LOREN Administration Levothyroxine Sodium 100 mcg 06/30/23 06:30 07/01/23 05:46 Levothyroxine 100 Mcg Tablet PO 06/29/24 06:29 100 mcg DAILY@0630 LOREN Administration Linaclotide 290 mcg 06/30/23 09:00 06/30/23 09:33 Linaclotide 290 Mcg Capsule PO 06/29/24 08:59 290 mcg Q48HR LOREN Administration Liothyronine Sodium 25 mcg 07/01/23 06:30 07/01/23 05:46 Liothyronine 25 Mcg Tablet PO 06/29/24 10:59 25 mcg DAILY@0630 LOREN Administration Loratadine 10 mg 06/30/23 06:55 Loratadine 10 Mg Tablet PO 06/29/24 06:54 DAILY PRN Allergy Symptoms Melatonin 5 mg 06/29/23 21:35 Melatonin 5 Mg Tablet PO 06/28/24 21:34 QHS PRN Insomnia Metoprolol Tartrate 25 mg 06/30/23 21:00 07/01/23 08:20 Metoprolol Tartrate 25 Mg Tablet PO 06/29/24 20:59 25 mg BID LOREN Administration Ondansetron HCl 4 mg 06/29/23 21:35 Ondansetron 4 Mg/2 Ml Vial IV-PUSH 06/28/24 21:34 Q8H PRN Nausea And Vomiting Oxycodone/Acetaminophen 2 tab 06/29/23 21:40 07/01/23 11:54 Oxycodone/Acetaminophen 5-325 Mg Tablet PO 2 tab Q6H PRN Administration Pain Pantoprazole Sodium 40 mg 06/30/23 09:00 07/01/23 08:21 Pantoprazole 40 Mg Tablet.Dr PO 06/29/24 08:59 40 mg BID LOREN Administration Primidone 100 mg 06/30/23 22:00 06/30/23 21:17 Primidone 50 Mg Tablet PO 06/29/24 21:59 100 mg HS LOREN Administration Sevelamer Carbonate 800 mg 06/30/23 12:00 07/01/23 11:54 Sevelamer Carbonate 800 Mg Tablet PO 06/29/24 11:59 800 mg TID.WITH.MEALS LOREN Administration Tizanidine HCl 4 mg 06/29/23 21:40 07/01/23 08:20 Tizanidine 4 Mg Tablet PO 06/28/24 21:39 4 mg Q8H PRN Administration Muscle Spasticity A&P - Hospitalist Assessment/Plan (1) Acute heart failure: (2) CKD (chronic kidney disease) stage 3, GFR 30-59 ml/min: (3) Anemia: (4) Hypertension: Plan Acute on chronic heart failure type unknown. Inpatient admission Cardiac telemetry Strict input output Daily weight Low-sodium diet Bumex 1 mg twice daily IV BMP daily, replenish electrolytes as needed Her Cr baseline appears to be 1.6 based on chart review from the records on her phone Echocardiogram pending Nephrology consult, appreciate recommendations Acute on chronic kidney disease Strict input output Bumex IV twice daily BMP daily Nephrology consult Hypertension: Resume Lopressor twice daily/will hold Entresto for now/nephrologywas consulted Pulmonary hypertension: Echocardiogram Hypothyroidism: Resume Synthroid DVT prophylaxis: Heparin subcu Documented By: Jim Randhawa DO 07/01/23 2096 Signed By: <Electronically signed by Jim Randhawa DO> 07/01/23 7698 [facility] Work Phone: 1(330) 257-224401-06-2024 Progress note Author Los [facility] July 01, 2023 10:16am Note Date/Time July 01, 2023 10 :16am [facility] [address] [place] [address] Nephrology Progress Note Signed Patient: Mabel Moser MR#: [id number] : 1960 Acct:[id number] Age/Sex: 63 / F Adm Date: 4 Loc: Room: [address] [place] [address] Type: ADM IN Attending Dr: Jmi Randhawa DO Copies to: ~ Date of Service: 07/01/2023 Subjective Subjective Narrative: Ms. Moser is a 63-year-old white female with history of CKD stage IIIa with baseline creatinine variable between 1.1 1.2 mg/dL with intermittent LEEANN relatedto CHF. Patient presented to the ER on 06/29 with progressive shortness of breathand bilateral lower extremity edema that has been going on for the last 2 days. Patient takes bumetanide at home. She denies any chest pain orthopnea or PND. No nausea or vomiting. She denies any diarrhea. Patient stated that she had intractable back pain and sciatica for which she has been taking Advil and acetaminophen as needed for the last few weeks. Other medical problems include mild liver cirrhosis related to alpha-1 antitrypsin deficiency and recurrent Hypernatremia currently maintained on bumetanide and urea. On arrival, BUN was elevated 117 and creatinine 3.16. Potassium is normal 4.6. She has mild acidosis with carbon oxide 15.0. Sodium however is normal at 134 mmol/L Interval history: Patient was started on bumetanide 1 mg twice a day for edema and manifestation of congestive heart failure. Serum creatinine was elevated on admission 3.16, repeat BMP still pending. Patient stated that she feels better. She still has edema however seems to be improving per patient. No significant shortness of breath. Exam Physical Exam Vital Signs: Temp Pulse Resp BP Pulse Ox O2 Del Method 36.6 C 64 18 123/85 100 Room Air 07/01/23 08:16 07/01/23 08:16 07/01/23 08:16 07/01/23 08:16 07/01/23 08:16 07/01/23 08:20 Narrative: Constitutional: Appears comfortable and not in distress HEENT: No pallor or Jaundice Cardiovascular: RRR, normal S1-S2, no gallop or rub, No JVD Respiratory: Good bilateral air entry no wheezing or crackles Gastrointestinal: Soft, non tender, positive bowel sounds Extremities: 2+ edema. Skin: No rashes or bruises Neurology: Awake, alert, oriented ?3, No focal motor or sensory deficits Psych: Normal mood and affect Objective Intake and Output I&O: Intake & Output 06/28/23 06/29/23 06/30/23 07/01/23 23:59 23:59 23:59 23:59 Intake Total 1175 / 1175 250 / 250 Balance 1175 / 1175 250 / 250 Weight 87.5 kg 88 kg 87.6 kg Meds and Allergies Meds: Active Medications Acetaminophen (Acetaminophen 325 Mg Tablet) 650 mg PO Q6HR PRN PRN Reason: Pain Scale 1 - 3 or fever Stop: 06/28/24 21:34 Albuterol (Albuterol Neb 2.5 Mg/3 Ml Vial.Neb) 2.5 mg INHALATION Q3H PRN PRN Reason: Cough/Wheeze Stop: 06/28/24 21:34 Alprazolam (Alprazolam 0.5 Mg Tablet) 0.5 mg PO BID PRN PRN Reason: Anxiety Stop: 12/26/23 21:39 Amitriptyline HCl (Amitriptyline 50 Mg Tablet) 150 mg PO QHS [facility] Stop: 06/29/24 21:59 Last Admin: 06/30/23 21:17 Dose: 150 mg Aripiprazole (Aripiprazole 2 Mg Tablet) 2 mg PO DAILY [facility] Stop: 06/29/24 08:59 Last Admin: 07/01/23 08:21 Dose: 2 mg Bisacodyl (Bisacodyl 5 Mg Tablet.) 10 mg PO DAILY PRN PRN Reason: Constipation Stop: 06/28/24 21:34 Bumetanide (Bumetanide 1 Mg/4 Ml Vial) 1 mg IV-PUSH BID@0800,1600 [facility] Stop: 06/29/24 07:59 Last Admin: 07/01/23 08:21 Dose: 1 mg Calcium Acetate (Calcium Acetate 667 Mg Capsule) 667 mg PO BID.WITH.MEALS [facility] Stop: 06/29/24 07:59 Last Admin: 07/01/23 08:20 Dose: 667 mg Duloxetine HCl (Duloxetine 60 Mg Capsule.) 120 mg PO DAILY [facility] Stop: 06/29/24 08:59 Last Admin: 07/01/23 08:20 Dose: 120 mg Fentanyl (Fentanyl Patch 100 Mcg/Hour Patch.Td72) 100 mcg TRANSDERML Q72H [facility]; Protocol Last Admin: 06/30/23 09:31 Dose: 100 mcg Ferrous Sulfate (Ferrous Sulfate 324 Mg Tablet.) 324 mg PO DAILY [facility] Stop: 06/29/24 08:59 Last Admin: 07/01/23 08:20 Dose: 324 mg Gabapentin (Gabapentin 100 Mg Capsule) 100 mg PO TID [facility] Stop: 06/29/24 08:59 Last Admin: 07/01/23 08:20 Dose: 100 mg Guaifenesin/Dextromethorphan (Guaif/Dextromethorphan Syrup 10 Ml Udc) 10 ml PO Q8H PRN PRN Reason: Cough Stop: 06/28/24 21:34 Heparin Sodium (Porcine) (Heparin 5,000 Unit/Ml Vial) 5,000 unit SUBCUT Q12HR [facility] Stop: 06/29/24 08:59 Last Admin: 07/01/23 08:21 Dose: 5,000 unit Levothyroxine Sodium (Levothyroxine 100 Mcg Tablet) 100 mcg PO DAILY@0630 [facility] Stop: 06/29/24 06:29 Last Admin: 07/01/23 05:46 Dose: 100 mcg Linaclotide (Linaclotide 290 Mcg Capsule) 290 mcg PO Q48HR [facility] Stop: 06/29/24 08:59 Last Admin: 06/30/23 09:33 Dose: 290 mcg Liothyronine Sodium (Liothyronine 25 Mcg Tablet) 25 mcg PO DAILY@0630 [facility] Stop: 06/29/24 10:59 Last Admin: 07/01/23 05:46 Dose: 25 mcg Loratadine (Loratadine 10 Mg Tablet) 10 mg PO DAILY PRN PRN Reason: Allergy Symptoms Stop: 06/29/24 06:54 Melatonin (Melatonin 5 Mg Tablet) 5 mg PO QHS PRN PRN Reason: Insomnia Stop: 06/28/24 21:34 Metoprolol Tartrate (Metoprolol Tartrate 25 Mg Tablet) 25 mg PO BID [facility] Stop: 06/29/24 20:59 Last Admin: 07/01/23 08:20 Dose: 25 mg Ondansetron HCl (Ondansetron 4 Mg/2 Ml Vial) 4 mg IV-PUSH Q8H PRN PRN Reason: Nausea And Vomiting Stop: 06/28/24 21:34 Oxycodone/Acetaminophen (Oxycodone/Acetaminophen 5-325 Mg Tablet) 2 tab PO Q6H PRN PRN Reason: Pain Last Admin: 07/01/23 03:35 Dose: 2 tab Pantoprazole Sodium (Pantoprazole 40 Mg Tablet.Dr) 40 mg PO BID [facility] Stop: 06/29/24 08:59 Last Admin: 07/01/23 08:21 Dose: 40 mg Primidone (Primidone 50 Mg Tablet) 100 mg PO HS [facility] Stop: 06/29/24 21:59 Last Admin: 06/30/23 21:17 Dose: 100 mg Sevelamer Carbonate (Sevelamer Carbonate 800 Mg Tablet) 800 mg PO TID.WITH.MEALS [facility] Stop: 06/29/24 11:59 Last Admin: 07/01/23 08:20 Dose: 800 mg Tizanidine HCl (Tizanidine 4 Mg Tablet) 4 mg PO Q8H PRN PRN Reason: Muscle Spasticity Stop: 06/28/24 21:39 Last Admin: 07/01/23 08:20 Dose: 4 mg Allergies amoxicillin [From Augmentin] Adverse Reaction (Verified 10/28/22 17:44) Diarrhea clavulanic acid [From Augmentin] Adverse Reaction (Verified 10/28/22 17:44) Diarrhea povidone-iodine [From Betadine] Adverse Reaction (Verified 10/28/22 17:44) Rash Sulfa (Sulfonamide Antibiotics) Adverse Reaction (Verified 10/28/22 17:44) Rash Results Labs 06/30/23 05:55 Radiology Impressions Impressions - last 24 hours: Any impression(s) listed above is documentation that was entered by the reading physician into a diagnostic report(s) for Mabel Moser. I have reviewed the report(s) and am incorporating any findings in the treatment plan of this patient where applicable. A&P - Nephrology Assessment/Plan (1) LEEANN (acute kidney injury): Assessment/Problem Details: Patient presented with LEEANN superimposed on CKD stage IIIa in the setting of recurrent CHF. Patient also has been on NSAIDs that may precipitate Soltamox retention and CHF in addition to LEEANN. Patient has borderline low blood pressurewith fentanyl patch. (2) Acute heart failure: Assessment/Problem Details: Patient has bilateral lower extremity edema and progressive shortness of breath. I will have her estimated ejection fraction available however patient on sacubitril/valsartan indicated of HFrEF. (3) CKD (chronic kidney disease) stage 3, GFR 30-59 ml/min: Assessment/Problem Details: Patient has mild CKD stage IIIa in the setting of recurrent CHF (4) Hypertension: Assessment/Problem Details: Patient has a history of hypertension currently low blood pressure with pain medications Plan * Patient still on bumetanide 1 mg twice a day. Edema has improved. Shortness of breath did improve and she is currently on room air with pulse ox 100%. BN P was over this morning however still pending. This will be reviewed and medication will be adjusted as needed. * Blood pressure stable 123/85. Metoprolol was decreased to 25 mg twice a day. Sacubitril/valsartan still on hold. Patient has been on ibuprofen as outpatient for backache is that was stopped. * Monitor daily intake and output and renal panel during hospital stay. Documented By: Los Grissom MD 07/01/23 1013 Signed By: <Electronically signed by MD Los Grissom> 07/01/23 1016 [facility] Work Phone: 1(340) 345-994501-05-2024 Progress note Author Jim Randhawa [facility] June 30, 2023 1:13pm Note Date/Time June 30, 2023 1: 13pm [facility] [address] [place] [address] Hospitalist Progress Note Signed Patient: Mabel Moser MR#: [id number] : 1960 Acct:[id number] Age/Sex: 63 / F Adm Date: 4 Loc: Room: [address] [place] [address] Type: ADM IN Attending Dr: Jim Randhawa DO Copies to: ~ Date of Service: 06/30/2023 Subjective Subjective Narrative: Seen and evaluated, patient states she is breathing a little better but doing well on room air, endorses LE edema with not much improvement since admission Exam Physical Exam Vital Signs: Temp Pulse Resp BP Pulse Ox O2 Del Method 98.0 F 80 18 107/70 98 Room Air 06/30/23 11:40 06/30/23 11:40 06/30/23 11:40 06/30/23 11:40 06/30/23 11:40 06/30/23 11:40 Narrative: General: Awake alert, no acute distress HEENT: head atraumatic, normocephalic, moist mucous membranes Neck: supple no masses, no lymphadenopathy CVS: regular rate and rhythm, no murmurs or gallops Respiratory: clear to auscultation bilaterally, no wheezing or crackles, symmetric expansion GI: soft, nondistended, nontender, positive bowel sounds with no organomegaly Extremity: moves all extremities, no restrictions of movements, +3 pitting edemain B/L le below the knee and +1-2 above the knee, overall worse on the right Neuro: AOx3, CN II-VII intact. Moves all extremities in all planes of motion. Skin: dry, intact no rashes or lesions Objective Lab Results 06/30/23 05:55 Meds Allergies and Active Meds Allergies amoxicillin [From Augmentin] Adverse Reaction (Verified 10/28/22 17:44) Diarrhea clavulanic acid [From Augmentin] Adverse Reaction (Verified 10/28/22 17:44) Diarrhea povidone-iodine [From Betadine] Adverse Reaction (Verified 10/28/22 17:44) Rash Sulfa (Sulfonamide Antibiotics) Adverse Reaction (Verified 10/28/22 17:44) Rash Active Meds: Active Medications Generic Name Dose Route Start Last Admin Trade Name Freq PRN Reason Stop Dose Admin Acetaminophen 650 mg 06/29/23 21:35 Acetaminophen 325 Mg Tablet PO 06/28/24 21:34 Q6HR PRN Pain Scale 1 - 3 or fever Albuterol 2.5 mg 06/29/23 21:35 Albuterol Neb 2.5 Mg/3 Ml Vial.Neb INHALATION 06/28/24 21:34 Q3H PRN Cough/Wheeze Alprazolam 0.5 mg 06/29/23 21:40 Alprazolam 0.5 Mg Tablet PO 12/26/23 21:39 BID PRN Anxiety Amitriptyline HCl 150 mg 06/30/23 22:00 Amitriptyline 50 Mg Tablet PO 06/29/24 21:59 QHS LOREN Aripiprazole 2 mg 06/30/23 09:00 06/30/23 09:30 Aripiprazole 2 Mg Tablet PO 06/29/24 08:59 2 mg DAILY LOREN Administration Bisacodyl 10 mg 06/29/23 21:35 Bisacodyl 5 Mg Tablet. PO 06/28/24 21:34 DAILY PRN Constipation Bumetanide 1 mg 06/30/23 08:00 06/30/23 09:31 Bumetanide 1 Mg/4 Ml Vial IV-PUSH 06/29/24 07:59 1 mg BID@0800,1600 LOREN Administration Calcium Acetate 667 mg 06/30/23 08:00 06/30/23 09:30 Calcium Acetate 667 Mg Capsule PO 06/29/24 07:59 667 mg BID.WITH.MEALS LOREN Administration Duloxetine HCl 120 mg 06/30/23 09:00 06/30/23 09:30 Duloxetine 60 Mg Capsule.Dr MCMANUS 06/29/24 08:59 120 mg DAILY LOREN Administration Fentanyl 100 mcg 06/30/23 09:00 06/30/23 09:31 Fentanyl Patch 100 Mcg/Hour Patch.Td72 TRANSDERML 100 mcg Q72H LOREN Administration Protocol Ferrous Sulfate 324 mg 06/30/23 09:00 06/30/23 09:31 Ferrous Sulfate 324 Mg Tablet. PO 06/29/24 08:59 324 mg DAILY LOREN Administration Gabapentin 100 mg 06/30/23 09:00 06/30/23 09:31 Gabapentin 100 Mg Capsule PO 06/29/24 08:59 100 mg TID LOREN Administration Guaifenesin/Dextromethorphan 10 ml 06/29/23 21:35 Guaif/Dextromethorphan Syrup 10 Ml Udc PO 06/28/24 21:34 Q8H PRN Cough Heparin Sodium (Porcine) 5,000 unit 06/30/23 09:00 06/30/23 09:32 Heparin 5,000 Unit/Ml Vial SUBCUT 06/29/24 08:59 5,000 unit Q12HR LOREN Administration Levothyroxine Sodium 100 mcg 06/30/23 06:30 06/30/23 05:55 Levothyroxine 100 Mcg Tablet PO 06/29/24 06:29 100 mcg DAILY@0630 LOREN Administration Linaclotide 290 mcg 06/30/23 09:00 06/30/23 09:33 Linaclotide 290 Mcg Capsule PO 06/29/24 08:59 290 mcg Q48HR LOREN Administration Liothyronine Sodium 25 mcg 06/30/23 11:00 Liothyronine 25 Mcg Tablet PO 06/29/24 10:59 DAILY LOREN Loratadine 10 mg 06/30/23 06:55 Loratadine 10 Mg Tablet PO 06/29/24 06:54 DAILY PRN Allergy Symptoms Melatonin 5 mg 06/29/23 21:35 Melatonin 5 Mg Tablet PO 06/28/24 21:34 QHS PRN Insomnia Metoprolol Tartrate 25 mg 06/30/23 21:00 Metoprolol Tartrate 25 Mg Tablet PO 06/29/24 20:59 BID LOREN Ondansetron HCl 4 mg 06/29/23 21:35 Ondansetron 4 Mg/2 Ml Vial IV-PUSH 06/28/24 21:34 Q8H PRN Nausea And Vomiting Oxycodone/Acetaminophen 2 tab 06/29/23 21:40 06/30/23 02:44 Oxycodone/Acetaminophen 5-325 Mg Tablet PO 1 tab Q6H PRN Administration Pain Pantoprazole Sodium 40 mg 06/30/23 09:00 01/05/24 09:31 Pantoprazole 40 Mg Tablet.Dr PO 06/29/24 08:59 40 mg BID LOREN Administration Primidone 100 mg 06/30/23 22:00 Primidone 50 Mg Tablet PO 06/29/24 21:59 HS LOREN Sevelamer Carbonate 800 mg 06/30/23 12:00 06/30/23 11:39 Sevelamer Carbonate 800 Mg Tablet PO 06/29/24 11:59 800 mg TID.WITH.MEALS LOREN Administration Tizanidine HCl 4 mg 06/29/23 21:40 Tizanidine 4 Mg Tablet PO 06/28/24 21:39 Q8H PRN Muscle Spasticity A&P - Hospitalist Assessment/Plan (1) Acute heart failure: (2) CKD (chronic kidney disease) stage 3, GFR 30-59 ml/min: (3) Anemia: (4) Hypertension: Plan Acute on chronic heart failure type unknown. Inpatient admission Cardiac telemetry Strict input output Daily weight Low-sodium diet Flomax 1 mg twice daily IV BMP daily, replenish electrolytes as needed Echocardiogram pending Nephrology consult, apreciate recommendations Acute on chronic kidney disease Strict input output Bumex IV twice daily BMP daily Nephrology consult Hypertension: Resume Lopressor twice daily/will hold Entresto for now/nephrologywas consulted Pulmonary hypertension: Echocardiogram Hypothyroidism: Resume Synthroid DVT prophylaxis: Heparin subcu Documented By: Jim Radnhawa DO 06/30/23 1309 Signed By: <Electronically signed by Jim Randhawa DO> 06/30/23 1313 [facility] Work Phone: 1([phone]) 607-225501-05-2024 [facility] June 30, [facility]23 10:45am Note Date/Time June 30, 2023 10 :26am [facility] [address] [place] [address] Nephrology Consult Note Signed Patient: Mabel Moser MR#: [id number] : 1960 Acct:[id number] Age/Sex: 63 / F Adm Date: 4 Loc: 3T Room: [address] [place] [address] Type: ADM IN Attending Dr: Jim Randhawa DO Copies to: MD Los Mensah MD Shawn J Warner, DO~ Providers Consult Date: 06/30/23 Requesting Provider: Jim Randhawa DO Primary Care Provider: Angle Santana MD [facility] Reason for Consult: LEEANN with creatinine 3.16 mg/dL compared to baseline 1 to 1.2mg/dL History of Present Illness: Ms. Moser is a 63-year-old white female with history of CKD stage IIIa with baseline creatinine variable between 1.1 1.2 mg/dL with intermittent LEEANN relatedto CHF. Patient presented to the ER on 06/29 with progressive shortness of breathand bilateral lower extremity edema that has been going on for the last 2 days. Patient takes bumetanide at home. She denies any chest pain orthopnea or PND. No nausea or vomiting. She denies any diarrhea. Patient stated that she had intractable back pain and sciatica for which she has been taking Advil and acetaminophen as needed for the last few weeks. Other medical problems include mild liver cirrhosis related to alpha-1 antitrypsin deficiency and recurrent Hypernatremia currently maintained on bumetanide and urea. On arrival, BUN was elevated 117 and creatinine 3.16. Potassium is normal 4.6. She has mild acidosis with carbon oxide 15.0. Sodium however is normal at 134 mmol/L Patient was examined in her room. She is awake with mild shortness of breath. She still has lower extremity edema. Her main complaint is back pain for which she needs pain medications including acetaminophen and NSAIDs. Patient is currently on bumetanide 1 mg twice a day. Blood pressure is borderline especially she is on fentanyl patch 100 mcg every 72 hours. She is also metoprolol 50 mg twice daily Review of Systems Review of Systems All other systems reviewed & are negative unless noted below or in HPI Constitutional Constitutional: Reports system reviewed and no additional complaints, except as documented Cardiovascular Cardiovascular: Reports system reviewed and no additional complaints, except as documented Respiratory Respiratory: Reports system reviewed and no additional complaints, except as documented Gastrointestinal Gastrointestinal: Reports system reviewed and no additional complaints, except as documented Neurologic Neurologic: Reports system reviewed and no additional complaints, except as documented Hematologic/Lymphatic Hematologic/Lymphatic: Reports system reviewed and no additional complaints, except as documented [facility] Medical History CAD (coronary artery disease) Concepcion filter in place Hypertension Surgical History History of appendectomy History of back surgery History of gastric bypass History of hysterectomy History of knee surgery Social History Smoking Status: Never smoker Substance Use Type: None Meds Medications & Allergies Allergies amoxicillin [From Augmentin] Adverse Reaction (Verified 10/28/22 17:44) Diarrhea clavulanic acid [From Augmentin] Adverse Reaction (Verified 10/28/22 17:44) Diarrhea povidone-iodine [From Betadine] Adverse Reaction (Verified 10/28/22 17:44) Rash Sulfa (Sulfonamide Antibiotics) Adverse Reaction (Verified 10/28/22 17:44) Rash Home Medications alprazolam 0.25 mg tablet (Xanax) 0.5 mg PO BID PRN Anxiety 08/31/18 [History Confirmed 06/30/23] metoprolol tartrate 25 mg tablet 25 mg PO BID 08/31/18 [History Confirmed 06/30/23] ondansetron HCl 4 mg tablet (Zofran) 4 mg PO Q6-8H PRN Nausea And Vomiting 08/31/18 [History Confirmed 06/29/23] oxycodone-acetaminophen 5 mg-325 mg tablet (Percocet) 1 - 2 tab PO Q6H PRN Pain 08/31/18 [History Confirmed 06/30/23] tizanidine 4 mg capsule 4 mg PO TID PRN Muscle Spasticity 08/31/18 [History Confirmed 06/29/23] amitriptyline 150 mg tablet 150 mg PO HS 10/28/22 [History Confirmed 06/29/23] aripiprazole 2 mg tablet 2 mg PO DAILY 10/28/22 [History Confirmed 06/29/23] bumetanide 1 mg tablet 2 mg PO DAILY PRN Edema 10/28/22 [History Confirmed 06/29/23] calcium acetate(phosphat bind) 667 mg capsule 667 mg PO BID 10/28/22 [History Confirmed 06/29/23] duloxetine 60 mg capsule,delayed release 120 mg PO DAILY 10/28/22 [History Confirmed 06/29/23] fentanyl 100 mcg/hr transdermal patch 1 patch transdermal Q72H 10/28/22 [History Confirmed 06/29/23] levothyroxine 100 mcg tablet 100 mcg PO DAILY 10/28/22 [History Confirmed 06/29/23] linaclotide 290 mcg capsule (Linzess) 290 mcg PO Q48HR 10/28/22 [History Confirmed 06/29/23] gabapentin 100 mg tablet 100 mg PO TID 06/29/23 [History Confirmed 06/29/23] loratadine 10 mg tablet (Claritin) 10 mg PO DAILY PRN Allergy Symptoms 06/29/23 [History Confirmed 06/29/23] primidone 50 mg tablet 100 mg PO HS 06/29/23 [History Confirmed 06/29/23] sacubitril 97 mg-valsartan 103 mg tablet (Entresto) 1 tab PO BID 06/29/23 [History Confirmed 06/29/23] sevelamer carbonate 800 mg tablet (Renvela) 800 mg PO TID 06/29/23 [History Confirmed 06/29/23] butorphanol 10 mg/mL nasal spray 1 spray intranasal DAILY PRN Migraine Headache 06/30/23 [History Confirmed 06/30/23] desvenlafaxine succinate 100 mg tablet,extended release 24 hr 100 mg PO DAILY 06/30/23 [History Confirmed 06/30/23] liothyronine 25 mcg tablet 25 mcg PO DAILY 06/30/23 [History Confirmed 06/30/23] pantoprazole 40 mg tablet,delayed release (Protonix) 40 mg PO BID 06/30/23 [History Confirmed 06/30/23] Active Medications: Active Medications Acetaminophen (Acetaminophen 325 Mg Tablet) 650 mg PO Q6HR PRN PRN Reason: Pain Scale 1 - 3 or fever Stop: 06/28/24 21:34 Albuterol (Albuterol Neb 2.5 Mg/3 Ml Vial.Neb) 2.5 mg INHALATION Q3H PRN PRN Reason: Cough/Wheeze Stop: 06/28/24 21:34 Alprazolam (Alprazolam 0.5 Mg Tablet) 0.5 mg PO BID PRN PRN Reason: Anxiety Stop: 12/26/23 21:39 Amitriptyline HCl (Amitriptyline 50 Mg Tablet) 150 mg PO QHS LOREN Stop: 06/29/24 21:59 Aripiprazole (Aripiprazole 2 Mg Tablet) 2 mg PO DAILY LOREN Stop: 06/29/24 08:59 Last Admin: 06/30/23 09:30 Dose: 2 mg Bisacodyl (Bisacodyl 5 Mg Tablet.) 10 mg PO DAILY PRN PRN Reason: Constipation Stop: 06/28/24 21:34 Bumetanide (Bumetanide 1 Mg/4 Ml Vial) 1 mg IV-PUSH BID@0800,1600 [facility] Stop: 06/29/24 07:59 Last Admin: 06/30/23 09:31 Dose: 1 mg Calcium Acetate (Calcium Acetate 667 Mg Capsule) 667 mg PO BID.WITH.MEALS [facility] Stop: 06/29/24 07:59 Last Admin: 06/30/23 09:30 Dose: 667 mg Duloxetine HCl (Duloxetine 60 Mg Capsule.) 120 mg PO DAILY [facility] Stop: 06/29/24 08:59 Last Admin: 06/30/23 09:30 Dose: 120 mg Escitalopram Oxalate (Escitalopram 20 Mg Tablet) 20 mg PO DAILY [facility] Stop: 06/29/24 08:59 Last Admin: 06/30/23 09:31 Dose: 20 mg Fentanyl (Fentanyl Patch 100 Mcg/Hour Patch.Td72) 100 mcg TRANSDERML Q72H [facility]; Protocol Last Admin: 06/30/23 09:31 Dose: 100 mcg Ferrous Sulfate (Ferrous Sulfate 324 Mg Tablet.) 324 mg PO DAILY [facility] Stop: 06/29/24 08:59 Last Admin: 06/30/23 09:31 Dose: 324 mg Gabapentin (Gabapentin 100 Mg Capsule) 100 mg PO TID [facility] Stop: 06/29/24 08:59 Last Admin: 06/30/23 09:31 Dose: 100 mg Guaifenesin/Dextromethorphan (Guaif/Dextromethorphan Syrup 10 Ml Udc) 10 ml PO Q8H PRN PRN Reason: Cough Stop: 06/28/24 21:34 Heparin Sodium (Porcine) (Heparin 5,000 Unit/Ml Vial) 5,000 unit SUBCUT Q12HR [facility] Stop: 06/29/24 08:59 Last Admin: 06/30/23 09:32 Dose: 5,000 unit Levothyroxine Sodium (Levothyroxine 100 Mcg Tablet) 100 mcg PO DAILY@0630 [facility] Stop: 06/29/24 06:29 Last Admin: 06/30/23 05:55 Dose: 100 mcg Linaclotide (Linaclotide 290 Mcg Capsule) 290 mcg PO Q48HR [facility] Stop: 06/29/24 08:59 Last Admin: 06/30/23 09:33 Dose: 290 mcg Liothyronine Sodium (Liothyronine 25 Mcg Tablet) 25 mcg PO DAILY [facility] Stop: 06/29/24 08:59 Loratadine (Loratadine 10 Mg Tablet) 10 mg PO DAILY PRN PRN Reason: Allergy Symptoms Stop: 06/29/24 06:54 Melatonin (Melatonin 5 Mg Tablet) 5 mg PO QHS PRN PRN Reason: Insomnia Stop: 06/28/24 21:34 Non-Formulary Medication (Butorphanol) 1 spray INTRANASAL DAILY PRN PRN Reason: CONGESTION Ondansetron HCl (Ondansetron 4 Mg/2 Ml Vial) 4 mg IV-PUSH Q8H PRN PRN Reason: Nausea And Vomiting Stop: 06/28/24 21:34 Oxycodone/Acetaminophen (Oxycodone/Acetaminophen 5-325 Mg Tablet) 2 tab PO Q6H PRN PRN Reason: Pain Last Admin: 06/30/23 02:44 Dose: 1 tab Oxycodone/Acetaminophen (Oxycodone/Acetaminophen 5-325 Mg Tablet) 1 tab PO BID PRN PRN Reason: Pain Pantoprazole Sodium (Pantoprazole 40 Mg Tablet.Dr) 40 mg PO BID [facility] Stop: 06/29/24 08:59 Last Admin: 06/30/23 09:31 Dose: 40 mg Primidone (Primidone 50 Mg Tablet) 100 mg PO HS [facility] Stop: 06/29/24 21:59 Sevelamer Carbonate (Sevelamer Carbonate 800 Mg Tablet) 800 mg PO TID [facility] Stop: 06/29/24 08:59 Tizanidine HCl (Tizanidine 4 Mg Tablet) 4 mg PO Q8H PRN PRN Reason: Muscle Spasticity Stop: 06/28/24 21:39 Exam Physical Exam Vital Signs: Temp Pulse Resp BP Pulse Ox O2 Del Method 36.7 C 78 16 98/62 L 100 Room Air 06/30/23 08:00 06/30/23 08:00 06/30/23 08:00 06/30/23 08:00 06/30/23 08:00 06/30/23 08:00 Narrative: Constitutional: Appears comfortable and not in distress HEENT: No pallor or Jaundice Cardiovascular: RRR, normal S1-S2, no gallop or rub, No JVD Respiratory: Good bilateral air entry no wheezing or crackles Gastrointestinal: Soft, non tender, positive bowel sounds Extremities: 2+ edema. Skin: No rashes or bruises Musculoskeletal: No joints swellings or inflammation Neurology: Awake, alert, oriented ?3, No focal motor or sensory deficits Psych: Normal mood and affect Results Labs 06/30/23 05:55 Labs: 06/30/23 05:55 BUN 117 H Creatinine 3.16 H Radiology Impressions Impressions - last 24 hours: Any impression(s) listed above is documentation that was entered by the reading physician into a diagnostic report(s) for Mabel Moser. I have reviewed the report(s) and am incorporating any findings in the treatment plan of this patient where applicable. A&P - Nephrology Assessment/Plan (1) LEEANN (acute kidney injury): Assessment/Problem Details: Patient presented with LEEANN superimposed on CKD stage IIIa in the setting of recurrent CHF. Patient also has been on NSAIDs that may precipitate Soltamox retention and CHF in addition to LEEANN. Patient has borderline low blood pressurewith fentanyl patch. (2) Acute heart failure: Assessment/Problem Details: Patient has bilateral lower extremity edema and progressive shortness of breath. I will have her estimated ejection fraction available however patient on sacubitril/valsartan indicated of HFrEF. (3) CKD (chronic kidney disease) stage 3, GFR 30-59 ml/min: Assessment/Problem Details: Patient has mild CKD stage IIIa in the setting of recurrent CHF (4) Hypertension: Assessment/Problem Details: Patient has a history of hypertension currently low blood pressure with pain medications Plan * I agree with bumetanide 1 mg twice a day currently takes IV with close monitoring of renal function. BUN still elevated hopefully will improve with diuretics. * Blood pressure is borderline low especially patient on fentanyl. Will decrease metoprolol to 25 mg twice a day. May need to decrease fentanyl dose further down to allow better blood pressure as renal function can get worse with low blood pressure with diuresis. * I agree with holding sacubitril/valsartan. Risks of NSAIDs has been addressed with the patient. Importance of low-salt diet has been addressed as well. * Monitor daily intake and output and renal panel during hospital stay. I appreciate this consultation we will be happy to follow the patient with you during hospital stay. Documented By: Los Grissom MD 06/30/23 1021 Signed By: <Electronically signed by MD Los Grissom> 06/30/23 [address] [facility] Work Phone: [phone] 150-371101-04-2024 History and physical note Author Beatriz Oh [facility] June 29, 2023 9:51pm Note Date/Time June 29, 2023 9: 47pm [facility] [address] [place] [address] Hospitalist H&P Signed Patient: Mabel Moser MR#: [id number] : 1960 Acct:[id number] Age/Sex: 63 / F Adm Date: 4 Loc: Room: [address] [place] [address] Type: ADM IN Attending Dr: Papito Garces MD Copies to: MD Papito Willett MD Douglas M Hoy, MD~ HPI DATE OF EXAMINATION: 06/29/23 CHIEF COMPLAINT: Shortness of breath HISTORY OF PRESENT ILLNESS: 63-year-old white female past medical history of hypertension, CAD, chronic kidney disease stage III, chronic congestive heart failure, hypothyroidism, and anemia of chronic disease who presented to emergency room with shortness of breath and bilateral leg edema. She has been complaining of shortness of breathfor 2 days. Associated with worsening leg edema. Patient taking Bumex orally at home. She denies having orthopnea or PND. This associated with runny nose and nasal congestion. Associated with mild cough. She denies having chest pain. No fever or chills. She denies having abdominal pain. No nausea or vomiting. No diarrhea. She denies having dysuria, hematuria, or frequency. [facility] Medical History CAD (coronary artery disease) Concepcion filter in place Hypertension Surgical History History of appendectomy History of back surgery History of gastric bypass History of hysterectomy History of knee surgery Social History Smoking Status: Never smoker Substance Use Type: None Meds Medications and Allergies Allergies amoxicillin [From Augmentin] Adverse Reaction (Verified 10/28/22 17:44) Diarrhea clavulanic acid [From Augmentin] Adverse Reaction (Verified 10/28/22 17:44) Diarrhea povidone-iodine [From Betadine] Adverse Reaction (Verified 10/28/22 17:44) Rash Sulfa (Sulfonamide Antibiotics) Adverse Reaction (Verified 10/28/22 17:44) Rash Home Medications alprazolam 0.25 mg tablet (Xanax) 0.5 mg PO BID PRN Anxiety 08/31/18 [History Confirmed 10/28/22] bupropion HCl 300 mg 24 hr tablet, extended release (Wellbutrin XL) 300 mg PO QAM 08/31/18 [History Confirmed 08/31/18] ferrous sulfate 325 mg (65 mg iron) tablet 325 mg PO DAILY 08/31/18 [History Confirmed 08/31/18] fluticasone furoate 100 mcg-vilanterol 25 mcg/dose inhalation powder (Breo Ellipta) 1 inh inhalation DAILY 08/31/18 [History Confirmed 08/31/18] metoclopramide HCl 5 mg tablet (Reglan) 5 mg PO DAILY 08/31/18 [History Confirmed 10/28/22] metoprolol tartrate 25 mg tablet 50 mg PO BID 08/31/18 [History Confirmed 10/28/22] iwmqfyxe-qwkjsym-jlzw-iron fum 18 mg-folic 600 mcg-vit K 80 mcg tablet (Multi For Her) 1 tab PO DAILY 08/31/18 [History Confirmed 08/31/18] ondansetron HCl 4 mg tablet (Zofran) 4 mg PO Q6-8H PRN Nausea And Vomiting 08/31/18 [History Confirmed 08/31/18] oxycodone-acetaminophen 5 mg-325 mg tablet (Percocet) 2 tab PO Q4-6H PRN Pain 08/31/18 [History Confirmed 08/31/18] pantoprazole 20 mg tablet,delayed release (Protonix) 20 mg PO DAILY 08/31/18 [History Confirmed 08/31/18] potassium chloride 10 mEq capsule,extended release 10 meq PO DAILY 08/31/18 [History Confirmed 08/31/18] spironolactone 50 mg tablet 100 mg PO DAILY 08/31/18 [History Confirmed 10/28/22] tizanidine 4 mg capsule 4 mg PO Q6-8H PRN Muscle Spasticity 08/31/18 [History Confirmed 08/31/18] urea 15 gram oral powder packet (Ure-Na) 30 g PO DAILY #30 ea 09/04/18 [Rx] albuterol sulfate 90 mcg/actuation aerosol inhaler 1 puff inhalation Q6H PRN Shortness Of Breath 10/28/22 [History Confirmed 10/28/22] amitriptyline 150 mg tablet 150 mg PO DAILY 10/28/22 [History Confirmed 10/28/22] aripiprazole 2 mg tablet 2 mg PO DAILY 10/28/22 [History Confirmed 10/28/22] bumetanide 1 mg tablet 1 mg PO TID PRN Edema 10/28/22 [History Confirmed 10/28/22] hdeddikdli-fmuvejyhaocsn-qixwvqck 50 mg-325 mg-40 mg capsule 1 cap PO DIRECTED PRN Migraine Headache 10/28/22 [History Confirmed 10/28/22] butorphanol 10 mg/mL nasal spray 1 spray intranasal DAILY PRN CONGESTION 10/28/22 [History Confirmed 10/28/22] calcium acetate(phosphat bind) 667 mg capsule 667 mg PO BID 10/28/22 [History Confirmed 10/28/22] desvenlafaxine succinate 50 mg tablet,extended release 24 hr 50 mg PO DAILY 10/28/22 [History Confirmed 10/28/22] dicyclomine 20 mg tablet 20 mg PO DIRECTED PRN Abdominal Pain 10/28/22 [History Confirmed 10/28/22] duloxetine 60 mg capsule,delayed release 120 mg PO DAILY 10/28/22 [History Confirmed 10/28/22] escitalopram oxalate 20 mg tablet 20 mg PO DAILY 10/28/22 [History Confirmed 10/28/22] fentanyl 100 mcg/hr transdermal patch 1 patch transdermal Q72H 10/28/22 [History Confirmed 10/28/22] hydralazine 50 mg tablet 50 mg PO TID 10/28/22 [History Confirmed 10/28/22] ipratropium 0.5 mg-albuterol 3 mg (2.5 mg base)/3 mL nebulization soln 3 ml inhalation Q6H PRN Shortness Of Breath 10/28/22 [History Confirmed 10/28/22] levothyroxine 100 mcg tablet 100 mcg PO DAILY 10/28/22 [History Confirmed 10/28/22] linaclotide 290 mcg capsule (Linzess) 290 mcg PO DAILY 10/28/22 [History Confirmed 10/28/22] liothyronine 25 mcg tablet 25 mcg PO DAILY 10/28/22 [History Confirmed 10/28/22] sacubitril 49 mg-valsartan 51 mg tablet (Entresto) 1 tab PO BID 10/28/22 [History Confirmed 10/28/22] Assessment & Plan Assessment/Plan (1) Acute heart failure: (2) CKD (chronic kidney disease) stage 3, GFR 30-59 ml/min: (3) Anemia: (4) Hypertension: Plan 63-year-old white female past medical history of hypertension, CAD, chronic kidney disease stage III, chronic congestive heart failure, hypothyroidism, and anemia of chronic disease who presented to emergency room with shortness of breath and bilateral leg edema. She has been complaining of shortness of breathfor 2 days. Associated with worsening leg edema. Patient taking Bumex orally at home. She denies having orthopnea or PND. This associated with runny nose and nasal congestion. Associated with mild cough. She denies having chest pain. No fever or chills. She denies having abdominal pain. No nausea or vomiting. No diarrhea. She denies having dysuria, hematuria, or frequency. Assessment and plan Acute on chronic heart failure type unknown. Inpatient admission Cardiac telemetry Strict input output Daily weight Low-sodium diet Flomax 1 mg twice daily IV BMP daily Echocardiogram Nephrology consult Acute on chronic kidney disease Strict input output Bumex IV twice daily BMP daily Nephrology consult Hypertension: Resume Lopressor twice daily/will hold Entresto for now/nephrologywas consulted Pulmonary hypertension: Echocardiogram Hypothyroidism: Resume Synthroid DVT prophylaxis: Heparin subcu IP vs OBS Justification Based on differential dx, clinical care plan, and risk of adverse events, if untreated, in my clinical judgement this patient requires an acute care setting as: INPATIENT because of an expectation of an over 2 midnight stay. Estimated length of stay (# of days): 3 Documented By: Beatriz Oh MD 06/29/23 3310 Signed By: <Electronically signed by Beatriz Oh MD> 06/29/23 [address] [facility] Work Phone: 1(456) 423-692210-10-2023 Evaluation note* Encounter Date Diagnosis Assessment Notes Treatment Notes Treatment Clinical Notes Mar, Hyperkalemia (ICD-10 - E87.5) This [...] with the stopping hydrochlorothiazide Mar, CHF (congestive hear t failure) (ICD-10 [...] G43.519) Advised the patient to follow with [facility] neurology clinic Mar, Chronic kidney disea se, stage 3b (ICD-10 - N18.32) She has [...] Hyperphosphatemia (ICD-10 - E83.39) Continue Phos[employer] with [employer] Other [id number] NoteRemains stable without worsening symptomsUnClinton [facility] Hospital08-30-2023 NoteCoronary artery disease is stable Continue GDMT continue risk factor modifications- heart healthy diet, regular exercise as tolerated and continue all medications.[facility] 02-22-2023 NoteNYHC II Continue GDMT- entresto- metoprolol and aldactone have been dc's r/t hypotension. Diuretic therapy- bumex 2 mg bid- Monitor daily weights, I&O, fluid restriction 1.5-2L/day, renal function and electrolytes- please maintain K+>4 and Mg > 2UnClinton [facility] Hospital 02-22-2023 NoteRCRI- 0???points Class I Risk 3.9???% 30-day risk of , MA, or cardiac arrest From a cardiology perspective pt may proceed with Total knee arthroplasty with Dr Dennis, she is a low to moderate risk for a low to mod risk orthopedic surgery. She does not take any Aspirin, or anticoagulation. Please monitor hemodynamics carefully and prevent any major fluid shifts.[facility]08-30-2023 NotePatient here for 2 mo follow up pulmonary hypertension and hypertension. She was admitted to [facility] twice this past month. She needs cleared for knee replacement surgery with Dr. Dennis. Denies chest pain, lightheadedness, and palpitations. Says SOB is improving. Review of Systems Constitutional: Positive for malaise/fatigue. Cardiovascular: Positive for dyspnea on exertion (improving). Musculoskeletal: Positive for arthritis, back pain and joint pain. All other systems reviewed and are negative.[facility] 02-22-2023 NoteUTP CARDIOLOGY PROGRESS NOTE HPI: Mabel Moser is a 62 y.o. female here for pre surgery risk stratification Patient here for 2 mo follow up pulmonary hypertension and hypertension. She was admitted to [facility] twice this past month. She needs [...] is alert and or (more content not included)...[facility]08-24-2023 NoteSubjective: Patient ID: Mabel Moser is a [...] History: Diagnosis Date CHF (congestive heart failure) ([facility]) Coronary artery disease Heart [...] requested to proceed with surgery. Oneal Downey, [address] of Medicine 02/16/23 As the teaching physician, I have personally performed or re-performed the history of present illness, physical exam and medical decision-making activities of the encounter and verified the medical student's documentation. I made pertinent changes as necessary to ensure accurate documentation. Additional Comments: [facility]07-21-2023 NoteData Mabel Moser 1960 Chief Complaint Patient presents with Left [...] on the medial aspect of the knee. 12-31 currently. Worse with walking any distances. Currently taking Percocet and Fentanyl with minimal improvement. Repeat Xrays obtained today in the office. has tried can management in the including physical therapy specifically wasdoing aquatic therapy, at [facility] with mild improvement. patient has had injections in the past, and did have some improvement however feels that getting significant improvement with these. She is interested in considering surgical intervention. Of Note, she did have a R. Total knee arthroplasty about 8 years at [facility]. Patient is also complaining of Left hip pain that worsened about a year ago after she had a fall. She did have x-rays completed after this, and was told that she had a chip off of her bone. . She saw Dr. Barajas at [facility] who recommended continiues conservative management. Hip pain rated as a 4-5/10. Most of her pain on the outer aspect of the hip. No prior injections or focused PT for the hip. Past Medical History: Diagnosis Date CHF (congestive heart failure) ([facility]) Coronary artery disease Heart [...] in detail including differentia (more content not included)...[facility]06-22-2023 Note [place] [facility] Subjective Mabel Moser is [...] In the past she was admitted to [facility] in 2019 with fluid overload and responded [...] not ill-appearing. HENT: H (more content not included)...[facility]06-07-2023 NotePt insists right subclavian chest port is accessed for procedure. 4CD RN at bedside to access. RN is not able to access. Li RN CVL spoke with Dr Hidalgo and pt can go to [facility] without IV access for RHC.[facility]06-07-2023 NotePatient: Mabel Moser Procedure Information Date/Time: 11/30/22 1300 Procedure: Right heart cath Location: [facility] / [facility] (Cath) Providers: Benjie Hidalgo MD [...] products. Plan discussed with fellow. Additional Equipment RequestsVeterans Health Administration05-15-2023 Note [place] [facility] Subjective Mabel Moser is a 62 y.o. year old female patient being seen for 2 week follow up per Sofie Bernard CNP. She says since she was last seen on 10/28, Dr. Santana increased her Entresto to 97-103mg bid, metoprolol to 50mg TID, and hydralazine to 100mg TID. Says she was in [facility] ED again last Monday with a [...] In the past she was admitted to [facility] in 2019 with fluid overload and responded [...] is no distension. Pal (more content not included)...[facility]05-05-2023 NoteHeadaches today and to be evaluated in ED- worst H/A I have ever had. [facility]05-05-2023 NoteCoronary artery disease is stable Continue [facility]-05-2023 NoteHypertension is uncontrolled with c/o worst headache ever- recommended [facility]-2023 NoteContinue to monitor with echoUnClinton [facility]05-05-2023 NoteNY[facility]- IV- SOB with rest and + Orthopnea, volume overloaded on exam despite Bumex 1 mg po tid and increased renal function. Noted elevated rt sided pressures with RVSP 59 and dilated RV on Echo 09/21/22- She has h/o PE in the past and currently on ASA. CR was increasing on labs noted 10/26/22- CR 1.68/BUN 45 at admit was 1.23/ 38 [facility]05-05-2023 NotePatient here for follow up [facility] ED on 10/24/2022 for fluid overload. [...] light-headedness. All other systems reviewed and are negative.[facility] 10-28-2022 NoteUTP CARDIOLOGY PROGRESS NOTE HPI: Mabel Moser is a 62 y.o. female here for hospital f/u Patient here for follow up [facility] ED on 10/24/2022 for fluid overload. [...] in the morning, afternoon, and at bedtime. dtqdfbgrhq-mnwijaqbhwbca-ijoi (Esgic) 50-325-40 mg capsule ysxncgitas-naegqecqhbcoq-zrilenms 50 mg-325 mg-40 mg capsule butorphanol (Stadol) [...] Acute on chronic diastolic heart failure (CMS/HCC) [place]- IV- SOB with rest and + Orthopnea, [...] hypertension Hypertension is uncontrolle (more content not included)...[facility]04-17-2023 NoteCardiovascular Medicine [facility] SUBJECTIVE Chief Complaint Patient presents with Congestive Heart Failure Re-establish care HPI Mabel Moser is a 62 y.o. female here to re-establish care. She was recently discharged from [facility] for fluid overload. Her weight went [...] She follows with a kidney specialist at [facility]. Her leg swelling has improved but [...] She has been admitted in 07/2018 to [facility] with dyspnea, fluid overload and was [...] contrast 09/01/2018: No acute cardiopulmonary pathology. Heart catheterization/: Normal filling pressures. Normal pulmonary pressures. Normal [...] kidney disease) stage 3, GFR 30-59 ml/min ([facility]/HCC) Closed fracture of trochanter of femur (CMS/HCC) [...] vitamin B12 deficiency Pulmona (more content not included)...[facility] 10-10-2022 NoteNew patient here to re-establish care. She was last seen in [address] Hidalgo. She was discharged 10/07/2022 from [facility] for fluid overload. Had echo 09/21/2022. Says PCP put her on Entresto a few months ago, and recently decreased her dose due to hyperkalemia per patient. Review of Systems Constitutional: Positive for malaise/fatigue. Cardiovascular: Positive for dyspnea on exertion, leg swelling and palpitations. Musculoskeletal: Positive for arthritis, back pain and joint pain. Neurological: Positive for light-headedness. All other systems reviewed and are negative.[facility] 09-27-2022 Evaluation note* Encounter Date Diagnosis Assessment [...] G43.519) Advised the patient to follow with [facility] neurology clinic [employer] Other 03-28-2023 NoteThe [facility] [id number] Evaluation note* Encounter Date Diagnosis Assessment Notes Treatment Notes Treatment Clinical Notes Jul, Contusion of right wrist, initial encounter (ICD-10 - S60.211A) Patient placed in cock up wrist splint. Activities 2-5 lbs ADLs [employer] Other 12-13-2022 NoteThe [facility] [id number] NoteThe [facility] [id number] NoteThe [facility] [id number] Evaluation note * Encounter Date Diagnosis Assessment [...] pressure. Advised the patient to follow-up with [facility] neurology clinic I will try to reach to Dr. Santana's office about fludrocortisone I would continue same blood pressure medications. Advised the patient to follow a low-salt diet and to monitor her blood pressure at home Mar, Migraine aura, persistent, intractable (ICD-10 - G43.519) Advised the patient to follow with [facility] neurology clinic [employer] Other 08-04-2022 NoteThe [facility] [id number] NoteThe [facility] [id number] Evaluation note* Encounter Date Diagnosis Assessment Notes [...] off all diuretics metolazone, spironolactone and bumetanide. [employer] Other Discharge summary Author Jim Randhawa [facility] July 03, 2023 3:03pm Note Date/Time July 03, 2023 2: 55pm [facility] [address] [place] [address] Discharge Summary Signed Patient: Mabel Moser MR#: [id number] : 1960 Acct:[id number] Age/Sex: 63 / F Adm Date: 4 Loc: Room: [address] [place] [address]: Jim Randhawa DO Copies to: MD Jim Mensah, DO~ Providers Date of Admission: 06/29/23 Date of Discharge: 07/03/23 Discharging Provider: Jim Randhawa Primary Care Provider: Angle Santana Consults: 06/29/23 21:35 Consult to Nephrology Routine Consult to Occupational Therapy Routine Consult to Physical Therapy Routine Discharge Diagnosis (1) LEEANN (acute kidney injury): (2) Acute heart failure: (3) CKD (chronic kidney disease) stage 3, GFR 30-59 ml/min: (4) Hypertension: (5) Anemia: Final Diagnosis Final Discharge Diagnosis: As above Summary Hospital Course Hospital course: Miss Moser is a 63-year-old female who admitted to hospital the afternoon of June 29 with a chief complaint of bilateral lower extremity edema and worsening shortness of breath with some slight chest discomfort, upon presentation emergency room she was found to have an LEEANN with her creatinine up to 3.16 with a GFR of 16, her baseline is 1.3-1.5 with GFR of 50, and her weightwas roughly 20 pounds above her baseline. She was subsequent admitted and placed on IV Bumex 1 mg twice daily and seen in nephrology consult. Her Entresto was held on admission due to the severity of her LEEANN, she did have an adequate response to the IV Bumex and her creatinine trended down towards normalslowly as well as her weight. She is overall net negative throughout her hospitalization. The afternoon of July 03, her creatinine was 2.32 proved entirely it was within acceptable limits given her baseline and she was cleared by nephrology for discharge. Her lower extremity edema had subsided and she wasdischarged home with no medication changes other than the instructions to continue holding her Entresto with a repeat BMP later on this week and to follow-up with nephrology in their offices to resume her Entresto. Condition Condition at Discharge: Stable Time Spent with Patient Time spent providing/coordinating discharge services (# min): 35 Diagnostic Studies Completed and Pending Studies Labs on day of discharge: 07/03/23 04:00: PHA Creatinine Clear 25.88, Sodium 134 L, Potassium 3.9, Chloride 106, Carbon Dioxide 20.4 L, Anion Gap 11.5, BUN 95 H, Creatinine 2.32 H, Est GFR (CKD-EPI) 23.348, Glucose 99, Calcium 8.3 L, Magnesium 2.0, Iron 59, TIBC 259, Iron Saturation 22.8, Transferrin 185 L, Ferritin 71.9, Vitamin B12 3564 H, Folate 11.1 07/03/23 04:00: Absolute Retic 0.039, Percent Retic 1.5 Exam Physical Exam Vital Signs: Temp Pulse Resp BP Pulse Ox O2 Del Method 97.9 F 68 16 121/71 100 Room Air 07/03/23 12:00 07/03/23 12:00 07/03/23 12:00 07/03/23 12:00 07/03/23 12:00 07/03/23 12:00 Narrative: General: Awake alert, no acute distress HEENT: head atraumatic, normocephalic, moist mucous membranes Neck: supple no masses, no lymphadenopathy CVS: regular rate and rhythm, no murmurs or gallops Respiratory: clear to auscultation bilaterally, no wheezing or crackles, symmetric expansion GI: soft, nondistended, nontender, positive bowel sounds with no organomegaly Extremity: moves all extremities, no restrictions of movements, +3 pitting edemain B/L le below the knee and +1-2 above the knee, overall worse on the right Neuro: AOx3, CN II-VII intact. Moves all extremities in all planes of motion. Skin: dry, intact no rashes or lesions Discharge Plan Discharge Plan Patient Disposition: Home Health Services Diet: Low-Sodium and Low-Cholesterol Additional Instructions: Home health to manage: - PT/OT to eval and treat - Monitor VS routine - Dx. HTN - CHF assessments/education - Urinary assessments - Dx. CKD on LEEANN - Fall precautions - high fall risk Instructions: Acute Kidney Injury (DC) Prescriptions: New ferrous sulfate 324 mg (65 mg iron) Tablet,Delayed Release (Dr/Ec) 324 mg PO DAILY Qty: 10 0RF liothyronine [Cytomel] 25 mcg Tablet 25 mcg PO DAILY@0630 30 Days Qty: 30 0RF Continued ondansetron HCl [Zofran] 4 mg Tablet 4 mg PO Q6-8H PRN (Reason: Nausea And Vomiting) oxycodone-acetaminophen [Percocet] 5-325 mg Tablet 1 - 2 tab PO Q6H PRN (Reason: Pain) alprazolam [Xanax] 0.25 mg Tablet 0.5 mg PO BID PRN (Reason: Anxiety) metoprolol tartrate 25 mg Tablet 25 mg PO BID tizanidine 4 mg Capsule 4 mg PO TID PRN (Reason: Muscle Spasticity) amitriptyline 150 mg tablet 300 mg PO HS calcium acetate(phosphat bind) 667 mg capsule 667 mg PO BID Rx Instructions: WITH MEALS aripiprazole 2 mg tablet 2 mg PO DAILY fentanyl 100 mcg/hr patch 72 hour 1 patch transdermal Q72H duloxetine 60 mg capsule,delayed release(DR/EC) 120 mg PO DAILY Patient Comments: TAKE TWO CAPSULES BY MOUTH DAILY levothyroxine 100 mcg tablet 100 mcg PO DAILY Patient Comments: TAKE ONE TABLET BY MOUTH DAILY Linzess 290 mcg capsule 290 mcg PO Q48HR loratadine [Claritin] 10 mg Tablet 10 mg PO DAILY PRN (Reason: Allergy Symptoms) primidone 50 mg Tablet 100 mg PO HS sevelamer carbonate [Renvela] 800 mg Tablet 800 mg PO TID Rx Instructions: must administer with a meal/food gabapentin 100 mg Tablet 100 mg PO TID pantoprazole [Protonix] 40 mg Tablet,Delayed Release (Dr/Ec) 40 mg PO BID desvenlafaxine succinate 100 mg tablet extended release 24 hr 100 mg PO DAILY butorphanol 10 mg/mL spray,non-aerosol 1 spray INTRANASAL DAILY PRN (Reason: Migraine Headache) Patient Comments: SPRAY ONE SPRAY INTO EACH NOSTRIL ONCE DAILY NEEDED TO LAST THIRTY DAYS liothyronine 25 mcg Tablet 25 mcg PO DAILY pramipexole [Mirapex] 1 mg Tablet 1 mg PO DAILY Changed bumetanide 1 mg tablet 2 mg PO BID Qty: 60 0RF Rx Instructions: Take twice daily Held Entresto 97-103 mg tablet 1 tab PO BID Hold Instructions: Resume when kidney function has returned to baseline per nephrology Patient Comments: Take 1 tablet by mouth twice a day Other Ambulatory Orders: Basic Metabolic Panel (Routine) Timeframe: [id number] Location: Determined by Patient Ordered By: Jim Randhawa Follow Up: Angle Santana MD [Primary Care Provider] - (Office is currently unavailable. Please call to schedule a follow up appointment in 7-10 days.) Raeann Kirkpatrick MD [Active Staff] - 08/22/23 1:40 pm (Please keep your previously scheduled follow up appointment for the following date and time, please call to reschedule if needed.) Documented By: Jim Randhawa DO 07/03/23 1455 Signed By: <Electronically signed by Jim Randhawa, > 07/03/23 1503 [facility] Work Phone: Evaluation noteNo assessment information available [facility] Work Phone: Evaluation noteNo InformationNortKindred Hospital [facility] Other Evaluation note* Diagnosis Onset Date Resolution Status Acute heart failure acute LEEANN (acute kidney injury) ac poarch Anemia chronic CKD (chronic kidney disease) stage 3, GFR 30-59 ml/min chronic Hypertension chronic [facility] Work Phone: History general Narrative - Reported* Type Description [...] Medical History C- DIFF 03/2021 Medical History STAP 04/2021 Surgical History rotator cuff tear repair [...] History COVID 05/2020 Hospitalization History COVID 04/2021 [facility] Other history general Narrative - Reported* Type Description Date [...] History COVID 05/2020 Hospitalization History COVID 04/2021 [employer] Other History general Narrative - Reported* Type [...] 04/2021 Hospitalization History ELEVATED POTASSIUM LEVEL 09/19/2022 [employer] Other Hospital Discharge instructions Additional Instructions Home health to manage: - PT/OT to eval and treat - Monitor VS routine - Dx. HTN - CHF assessments/education - Urinary assessments - Dx. CKD on LEEANN - Fall precautions - high fall riskGuernsey [facility]tr Work Phone: Summary Purpose Family History No Family History Records FoundNo Family History Records FoundNo Family History Records FoundNo Family History Records FoundNo Family History Records FoundNo Family History Records FoundNo Family History Records Found Advance Directives No Advanced Directives Records Found Advance Directive Response Recorded Date/ Time Advance Directives No February 3:20pm Advance Directive Response Recorded Date/ Time Advance Directives No February 2:20pm Chief Complaint and Reason for Visit Chief Complaint sent by brandi chung Chief Complaint LEEANN Reason for Visit Acute heart failure LEEANN (acute kidney injury) Anemia CKD (chronic kidney disease) stage 3, GFR 30-59 ml/min Hypertension Additional Source Comments INFORMATION SOURCE (unrecogn ized section and content) DATE CREATED AUTHOR 01/14/2019 [facility] DATE CREATED AUTHOR AUTHOR'S ORGANIZ ATION 07/24/2021 [facility] DATE CREATED AUTHOR AUTHOR'S ORGANIZ ATION 01/17/2022 [facility] DATE CREATED AUTHOR AUTHOR'S ORGANIZ ATION 12/05/2022 [facility] DATE CREATED AUTHOR AUTHOR'S ORGANIZ ATION 02/10/[address] [facility] DATE CREATED AUTHOR AUTHOR'S ORGANIZ ATION [address] [facility] DATE CREATED AUTHOR AUTHOR'S ORGANIZ ATION 07/12/2023 [facility] REASON FOR VISIT (unrecogniz ed section and content) RENAL 6 month f/u for CKD [facility] [age] with recurrent LEEANN on diureticsRENAL 4 month Follow up, NO LABSRight Wrist InjuryRENAL 6 month Follow upClinicalClinicalTELEVISIT VS OVRENAL F/U Care Teams (unrecognized sec tion and content) Team Status: Active Member Role Status Adriana Santana MD Primary Care Provider Active Team Status: Inactive Member Role Status Dates Angle Santana MD Primary Care Provider Active Favian Helm PA-C Emergency Provider Active Team Status: Inactive Member Role Status Dates Angle Santana MD Primary Care Provider Active Beatriz Oh MD Admit Provider Active Jim Randhawa DO Attending Provider Active Los Grissom MD Other Provider Active Goals (unrecognized section and content) [...] BE BASED ON THE PRIMARY CLINICAL RECORDS. [facility] [employer] [facility]. provides no warranty or guarantee of the accuracy or completeness of information in this document.
--- NOTE | 2023-07-13 13:54 | PM.CN ---
Consult Note: HPI Data of Consult Requesting Physician: Louann Jackson NP Primary Care Provider: Yuri Godinez MD Consult Narrative Reason for consult: f/u Narrative: Mabel Moser a pleasant 63 year old female presents for evaluation and management of chronic pain. Today pain 6/10 in right hip, groin, buttocks, and low back. Patient reports >50% improvement from recent lumbar ROBSON with Dr David. Patient continues to have numbness tingling to BLE but greatly improved per patient. Patient currently dealing with kidney issues and severe bilateral leg edema, following with PCP and nephrology. Patient is being managed with medications for pain by PCP. cc:: CC: Louann Jackson NP Review of Systems ROS Narrative A ten point review of systems is negative except as noted above. [facility] Medical History (Updated 06/29/23 @ 17:49 by Chapo Venegas MD) Depression ?F32.A - Depression, unspecified (ICD-10) Gastroenteritis ?K52.9 - Noninfective gastroenteritis and colitis, unspecified (ICD-10) Migraine without aura and without status migrainosus, not intractable ?G43.009 - Migraine without aura, not intractable, without status migrainosus (ICD-10) Chronic heart failure with preserved ejection fraction (HFpEF) ?I50.32 - Chronic diastolic (congestive) heart failure (ICD-10) Chest pain ?R07.9 - Chest pain, unspecified (ICD-10) Dyspnea ?R06.00 - Dyspnea, unspecified (ICD-10) Fluid overload ?E87.70 - Fluid overload, unspecified (ICD-10) Osteoarthritis ?M19.90 - Unspecified osteoarthritis, unspecified site (ICD-10) Anemia ?D64.9 - Anemia, unspecified (ICD-10) Anxiety ?F41.9 - Anxiety disorder, unspecified (ICD-10) Stroke ?I63.9 - Cerebral infarction, unspecified (ICD-10) Acid reflux ?K21.9 - Gastro-esophageal reflux disease without esophagitis (ICD-10) Hypothyroid ?E03.9 - Hypothyroidism, unspecified (ICD-10) Kidney failure ?N19 - Unspecified kidney failure (ICD-10) COPD (chronic obstructive pulmonary disease) ?J44.9 - Chronic obstructive pulmonary disease, unspecified (ICD-10) Asthma ?J45.909 - Unspecified asthma, uncomplicated (ICD-10) CHF (congestive heart failure) ?I50.9 - Heart failure, unspecified (ICD-10) Irregular heart beat ?I49.9 - Cardiac arrhythmia, unspecified (ICD-10) HTN (hypertension) ?I10 - Essential (primary) hypertension (ICD-10) Heart attack ?I21.9 - Acute myocardial infarction, unspecified (ICD-10) Lumbar spondylosis ?M47.816 - Spondylosis without myelopathy or radiculopathy, lumbar region (ICD-10) Surgical History H/O hysterectomy with oophorectomy H/O gastric bypass ?Z98.84 - Bariatric surgery status (ICD-10) History of hernia repair ?Z98.890 - Other specified postprocedural states (ICD-10) ?Z87.19 - Personal history of other diseases of the digestive system (ICD-10) History of rotator cuff surgery ?Z98.890 - Other specified postprocedural states (ICD-10) History of right knee joint replacement ?Z96.651 - Presence of right artificial knee joint (ICD-10) History of appendectomy ?Z90.49 - Acquired absence of other specified parts of digestive tract (ICD-10) Hx of cholecystectomy ?Z90.49 - Acquired absence of other specified parts of digestive tract (ICD-10) Family History Father Family history of CHF (congestive heart failure) Family history of diabetes mellitus Family history of hypertension Family history of myocardial infarction Family history of stroke Mother Family history of CHF (congestive heart failure) Family history of COPD (chronic obstructive pulmonary disease) Family history of diabetes mellitus Family history of hypertension Family history of myocardial infarction Family history of stroke Social History Within the past year, how often did you have a drink containing alcohol: never Within the past year, how often did you have six or more drinks on one occasion: never Score interpretation: A score less than 3 is consistent with normal alcohol consumption. 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 Highest level of school completed/degree received: some college, no degree Are you now , , , , never or living with a partner: In a typical week, how many times do you talk on the telephone with family, friends, or neighbors: 3 or more times per week How often do you get together with friends or relatives: twice per week How often do you attend jehovah's witness or mandaeism services: 4 or more times per year Do you belong to any clubs or organizations such as jehovah's witness groups unions, [employer] or athletic groups, or school groups: no Total score: 3 Score interpretation: A score of greater than or equal to 2 indicates the lowest level of social isolation. Little interest or pleasure in doing things: not at all Feeling down, depressed, or hopeless: several days Feel stressed/tense/nervous/anxious/difficulty sleeping: to some extent Life stressors: recent of family or friend Do you think of yourself as: straight/heterosexual Gender Identity: female Meds Home Medications and Allergies Home Medications Medication Instructions Recorded Confirmed Type alprazolam 0.5 mg tablet 0.5 mg PO BID 12/08/22 07/04/23 History amitriptyline 150 mg tablet 150 mg PO BEDTIME 12/08/22 07/04/23 History calcium acetate(phosphat bind) 667 667 mg PO BID 12/08/22 07/04/23 History mg capsule fentanyl 100 mcg/hr transdermal 1 patch transdermal Q72H 12/08/22 07/04/23 History patch levothyroxine 100 mcg tablet 100 mcg PO DAILY 12/08/22 07/04/23 History linaclotide 290 mcg capsule 290 mcg PO DAILY 12/08/22 07/04/23 History (Linzess) liothyronine 25 mcg tablet 25 mcg PO DAILY 12/08/22 07/04/23 History metoclopramide HCl 10 mg tablet 10 mg PO QID PRN nausea and 12/08/22 07/04/23 History vomiting metoprolol tartrate 50 mg tablet 50 mg PO BID PRN hypertension 12/08/22 07/04/23 History (Lopressor) ondansetron HCl 4 mg tablet 4 mg PO TID-QID PRN nausea and 12/08/22 07/04/23 History vomiting oxycodone-acetaminophen 5 mg-325 2 tab PO Q6H 12/08/22 07/04/23 History mg tablet pantoprazole 40 mg tablet,delayed 40 mg PO BID 12/08/22 07/04/23 History release primidone 50 mg tablet 100 mg PO BEDTIME 12/08/22 07/04/23 History tizanidine 4 mg tablet (Zanaflex) 4 mg PO Q6H 12/08/22 07/04/23 History aripiprazole 2 mg tablet (Abilify) 2 mg PO DAILY 01/23/23 07/04/23 History bumetanide 1 mg tablet 4 mg PO QDAY 01/23/23 07/04/23 History loratadine 10 mg tablet (Claritin) 10 mg PO DAILY 01/23/23 06/15/23 History sacubitril 97 mg-valsartan 103 mg 1 tab PO BID 01/23/23 07/04/23 History tablet (Entresto) pramipexole 1 mg tablet (Mirapex) 1 mg PO .evening 01/24/23 06/15/23 History spironolactone 50 mg tablet 50 mg PO DAILY PRN swelling 01/24/23 07/04/23 History (Aldactone) albuterol sulfate 2.5 mg/3 mL 2.5 mg inhalation Q4H PRN 02/03/23 07/04/23 History (0.083 %) solution for nebulization bronchospasm [id number]-[id number]-[id number] 1 cap PO Q6H PRN pain 02/03/23 07/04/23 History 50 mg-325 mg-40 mg capsule butorphanol 10 mg/mL nasal spray 1 spray intranasal BID PRN pain 02/03/23 07/04/23 History fluticasone furoate 100 1 inh inhalation Q24H 02/03/23 07/04/23 History mcg-vilanterol 25 mcg/dose inhalation powder (Breo Ellipta) Allergies Allergy/AdvReac Type Severity Reaction Status Date / Time povidone-iodine Allergy Intermediate Verified 06/29/23 16:05 [From Betadine] amoxicillin [From Augmentin] Allergy Mild Vomiting Verified 06/29/23 16:05 clavulanic acid Allergy Mild Vomiting Verified 06/29/23 16:05 [From Augmentin] Sulfa (Sulfonamide Allergy Mild Vomiting Verified 06/29/23 16:05 Antibiotics) ciprofloxacin [From Cipro] Allergy Unknown Verified 06/29/23 16:05 Exam Constitutional Documenting provider has reviewed patient's vital signs: yes Common normals: no apparent distress, oriented x3, healthy appearing, alert and well nourished General appearance: cooperative HENMT Common normals: normocephalic, hearing grossly normal bilaterally and moist oral mucous membranes Head and scalp: normocephalic Eye Common normals: PERRL Pupil: PERRL Neck & C-Spine Common normals: full ROM General: normal visual inspection Cervical spine: pain with cervical ROM Other: facet loading positive bilaterally no radiculopathy strength 5/5 in BUE Chest Common normals: inspection of chest normal Respiratory Common normals: normal respiratory effort, no retractions and no use of accessory muscles Back & Pelvis Thoracic spine/upper back: pain with ROM Lumbar spine/lower back: pain with ROM and straight leg raise negative bilaterally Other: strength 4/5 in BLE numbness to right L4/5/S1 dermatomal pattern on exam Extremity General: edema Other: EDEMA to bilateral legs Neuro Common normals: oriented x3, CN's II-XII intact bilaterally, moves all extremities, no focal motor deficits, no sensory deficits noted and deep tendon reflexes 2+ bilaterally Sensorium/orientation: alert Gait (neuro): antalgic and assistive device used walker Motor exam: no movement abnormalities noted and strength abnormal (right lower extremity 4/5 ) Psych Common normals: mental status grossly normal, thought process normal, cooperative, affect normal, speech normal and activity/motor behavior normal Speech: normal speech Thought process: normal thought process Assessment and Plan Assessment and Plan (1) Thoracic spondylosis: (2) Lumbar radiculopathy: Plan continue f/u with PCP and nephrology f/u 3 months
== END 2023-07-13 13:28 | disposition home or self-care (01) ==
LOC: PM 13:27
PROVIDERS: PCP Family Medicine; Visit Provider Nurse Practitioner
DX: M47.814 Spondylosis without myelopathy or radiculopathy, thoracic region (principal); M54.16 Radiculopathy, lumbar region
CPT/HCPCS: 36591; G0463; J1642

== ENCOUNTER 2023-07-20 07:52 | Outpatient (RCR) | payer MEDICARE, MEDICAID, SELFPAY ==
[2023-06-29 13:46] VITALS: BP 104/68; PULSE 63; RESP 18; TEMP 36.6; O2SAT 95
--- NOTE | 2023-06-29 13:48 | PC.NURSE ---
1310 arrival amb with walker. alert oriented. rt chest port accessed under sterile technique, utilizing 19 ga james needle, excellent blood return, labs obtained, fllushed with NSS fiollowed by hep lock flush.deaccessed, patient tolerated well, bandaid applied to site after holding pressure. no bleeding noted.
[2023-06-29 14:37] LABS: Basophils Percent Auto 0.2 % (0.2-2.0); Eosinophils Absolute Auto 0.1 10^3/uL (0.0-0.7); Eosinophils Percent Auto 1.1 % (0.9-7.0); Hemoglobin 9.6 g/dL (12.0-16.0); Immature Granulocytes Abs Auto 0.13 10^3/uL (0.00-0.03); Immature Granulocytes Pct Auto 1.1 % (0.0-0.5); Lymphocytes Absolute Auto 0.6 10^3/uL (1.2-3.8); Lymphocytes Percent Auto 4.7 % (20.5-60.0); Mean Corpuscular Hemoglobin 31.1 pg (26.7-34.0); Mean Corpuscular Volume 103.6 fL (81.0-99.0); Mean Platelet Volume 9.5 fL (9.5-13.5); Monocytes Absolute Auto 0.6 10^3/uL (0.3-0.8); Monocytes Percent Auto 5.5 % (1.7-12.0); Neutrophils Absolute Auto 10.2 10^3/uL (1.4-6.5); Neutrophils Percent Auto 87.4 % (43.0-75.0); Platelet Count 277 10^3/uL (150-450); Red Blood Count 3.09 10^6/uL (4.20-5.40); Red Cell Distribution Width 14.2 % (11.0-15.0); White Blood Count 11.7 10^3/uL (4.0-11.0)
[2023-06-29 14:44] LABS: Alanine Aminotransferase 35 U/L (14-59); Albumin Globulin Ratio 0.8; Alkaline Phosphatase 239 U/L (46-116); Anion Gap 20.3; Aspartate Amino Transferase 38 U/L (15-37); BUN Creatinine Ratio 32.3; Bilirubin Total 0.4 mg/dL (0.2-1.0); Calcium 8.7 mg/dL (8.5-10.1); Carbon Dioxide 16.6 mmol/L (21.0-32.0); Chloride 97 mmol/L (98-107); Estimated GFR (African America 13 (>=60); Estimated GFR (Non-African Ame 11 (>=60); Globulin 3.6 g/dL; Glucose 90 mg/dL (74-106); Potassium 4.9 mmol/L (3.5-5.1); Sodium 129 mmol/L (136-145); Total Protein 6.6 g/dL (6.4-8.2)
[2023-07-06] MEDS: HEPARIN SODIUM (PORCINE) PF LOCK FLUSH 500 UNIT/5 ML SYRINGE IV (13:40)
[2023-07-06 14:10] VITALS: BP 149/64; PULSE 86; RESP 16; TEMP 36.6; O2SAT 95
--- NOTE | 2023-07-06 14:12 | PC.NURSE ---
1340: Pt. to [facility] amb. for weekly lab draw. Seated in recliner. VSS. Using sterile technique, right ant. chest port accessed using #19 gauge Stovall needle. Flushes easily and able to aspirate blood easily. Blood drawn and sent to lab as ordered. Port flushed with saline and Heparin flush. Port de-accessed. Trace bleeding to site. Sterile 2x2 applied over site. Pt. tolerated without c/o. 1350: Pt. d/c'd via w/c and taken out to car per. Delvin Hoffman. Pt. d/c'd to home per self.
[2023-07-06 15:28] LABS: Basophils Absolute Auto 0.1 10^3/uL (0.0-0.1); Basophils Percent Auto 0.5 % (0.2-2.0); Eosinophils Absolute Auto 0.2 10^3/uL (0.0-0.7); Eosinophils Percent Auto 1.5 % (0.9-7.0); Hematocrit 29.7 % (36.0-48.0); Hemoglobin 9.1 g/dL (12.0-16.0); Immature Granulocytes Abs Auto 0.49 10^3/uL (0.00-0.03); Lymphocytes Absolute Auto 1.3 10^3/uL (1.2-3.8); Lymphocytes Percent Auto 10.7 % (20.5-60.0); Mean Corpuscular HGB Conc 30.6 g/dL (29.9-35.2); Mean Corpuscular Hemoglobin 31.1 pg (26.7-34.0); Mean Corpuscular Volume 101.4 fL (81.0-99.0); Mean Platelet Volume 9.5 fL (9.5-13.5); Monocytes Absolute Auto 0.7 10^3/uL (0.3-0.8); Neutrophils Absolute Auto 9.4 10^3/uL (1.4-6.5); Neutrophils Percent Auto 77.3 % (43.0-75.0); Platelet Count 301 10^3/uL (150-450); Red Blood Count 2.93 10^6/uL (4.20-5.40); Red Cell Distribution Width 14.3 % (11.0-15.0); White Blood Count 12.2 10^3/uL (4.0-11.0)
[2023-07-06 15:54] LABS: Alanine Aminotransferase 27 U/L (14-59); Albumin Globulin Ratio 0.9; Albumin Level 3.1 g/dL (3.4-5.0); Alkaline Phosphatase 276 U/L (46-116); Anion Gap 14.4; Aspartate Amino Transferase 21 U/L (15-37); BUN Creatinine Ratio 38.9; Bilirubin Total 0.2 mg/dL (0.2-1.0); Calcium 8.5 mg/dL (8.5-10.1); Carbon Dioxide 20.9 mmol/L (21.0-32.0); Chloride 102 mmol/L (98-107); Estimated GFR (African America 27 (>=60); Estimated GFR (Non-African Ame 22 (>=60); Globulin 3.6 g/dL; Glucose 87 mg/dL (74-106); Potassium 4.3 mmol/L (3.5-5.1); Sodium 133 mmol/L (136-145); Total Protein 6.7 g/dL (6.4-8.2)
[2023-07-13] MEDS: HEPARIN SODIUM (PORCINE) PF LOCK FLUSH 500 UNIT/5 ML SYRINGE IV (13:15)
[2023-07-13 14:03] VITALS: BP 117/84; PULSE 94; TEMP 36.6; O2SAT 94
--- NOTE | 2023-07-13 14:22 | PC.NURSE ---
1305 Arrival ambulatory to chair 1, alert oriented, Rt chest port accessed under sterile technique, 19 ga 1 inch james needle utilized, excellent blood return noted. labs drawn, sent to lab, flushed port with NSS, followed by heparin lock solution, deaccessed port, cottonball and bandaid applied. Released ambulatory.
[2023-07-20] MEDS: HEPARIN SODIUM (PORCINE) PF LOCK FLUSH 500 UNIT/5 ML SYRINGE IV (14:00)
[2023-07-20 14:19] LABS: Basophils Percent Auto 0.2 % (0.2-2.0); Eosinophils Percent Auto 0.4 % (0.9-7.0); Hematocrit 31.6 % (36.0-48.0); Hemoglobin 9.5 g/dL (12.0-16.0); Immature Granulocytes Abs Auto 0.03 10^3/uL (0.00-0.03); Immature Granulocytes Pct Auto 0.3 % (0.0-0.5); Lymphocytes Absolute Auto 0.5 10^3/uL (1.2-3.8); Lymphocytes Percent Auto 4.5 % (20.5-60.0); Mean Corpuscular HGB Conc 30.1 g/dL (29.9-35.2); Mean Corpuscular Hemoglobin 31.1 pg (26.7-34.0); Mean Corpuscular Volume 103.6 fL (81.0-99.0); Mean Platelet Volume 8.9 fL (9.5-13.5); Monocytes Absolute Auto 0.5 10^3/uL (0.3-0.8); Monocytes Percent Auto 4.5 % (1.7-12.0); Neutrophils Absolute Auto 9.6 10^3/uL (1.4-6.5); Neutrophils Percent Auto 90.1 % (43.0-75.0); Platelet Count 235 10^3/uL (150-450); Red Blood Count 3.05 10^6/uL (4.20-5.40); White Blood Count 10.7 10^3/uL (4.0-11.0)
--- NOTE | 2023-07-20 14:21 | PC.NURSE ---
1400: Pt. to [facility] amb. with use of walker. Gait slow, but steady. Assisted into recliner. Bilat. legs noted to be extremely swollen. Pt. relays c/o pain to legs and attending PCP office after lab draw. Using sterile technique, right ant. chest port accessed using #20 gauge Stovall needle. Flushes easily and able to aspirate blood easily. Blood drawn and sent to lab. Port flushed with saline and Heparin. Port de-accessed. Trace bleeding to site. Covered with cotton ball and secured with tape. Pt. tolerated without c/o. 1417: Pt. taken to car via w/c and d/c'd to PCP office with .
[2023-07-20 14:36] LABS: Alanine Aminotransferase 25 U/L (14-59); Albumin Globulin Ratio 0.9; Albumin Level 3.3 g/dL (3.4-5.0); Alkaline Phosphatase 253 U/L (46-116); Anion Gap 14.7; Aspartate Amino Transferase 19 U/L (15-37); BUN Creatinine Ratio 25.6; Bilirubin Total 0.3 mg/dL (0.2-1.0); Calcium 8.1 mg/dL (8.5-10.1); Chloride 103 mmol/L (98-107); Estimated GFR (African America 17 (>=60); Estimated GFR (Non-African Ame 14 (>=60); Globulin 3.7 g/dL; Glucose 121 mg/dL (74-106); Potassium 4.7 mmol/L (3.5-5.1); Sodium 133 mmol/L (136-145)
== END 2023-07-26 23:59 | disposition home or self-care (01) ==
LOC: INF 07:52
PROVIDERS: PCP Family Medicine; Visit Provider Family Medicine
DX: I10 Essential (primary) hypertension (principal); E87.1 Hypo-osmolality and hyponatremia; D64.9 Anemia, unspecified
CPT/HCPCS: 36591; 80053; 83930; 85025; J1642

== ENCOUNTER 2023-07-20 15:29 | Inpatient (IN) | payer MEDICARE, MEDICAID, SELFPAY ==
--- OUTSIDE RECORDS SUMMARY | 2023-07-20 15:37 | XMS_ITS | CCD ---
Author Name Unknown Address [address] [place] [address] Organization [facility] Care Team Providers Care Gaming Manager Name Role Phone NIRMAL LEWIS Admitting [...] Unavailable MD Angle Santana Primary Care Provider [phone] WALLY Helm Emergency Provider [phone] ROBERT JOHNSTON Attending Unavailable ROBERT JOHNSTON Admitting [...] Unavailable HOY ., DR BARBOUR Consulting Unavailable MARIAHY ., DR BARBOUR Attending Unavailable MD Angle Santana Primary Care Provider MD Beatriz Oh Admit Provider DO Jim Randhawa Attending Provider MD Los Grissom Other Provider RHIANNON BERNARD Attending Unavailable BENJIE HIDALGO Attending Unavailable SHERLY ROSADO Attending Unavailable DUNCAN DENNIS Attending Unavailable SHERLY ROSADO Referring Unavailable BENJIE HIDALGO Admitting Unavailable BENJIE HIDALGO Attending Unavailable BENJIE HIDALGO Attending Unavailable RHIANNON BERNARD Attending Unavailable ZANDRA GONZALEZ Attending Unavailable BENJIE HIDALGO Attending Unavailable SHERLY ROSADO Referring Unavailable Favian Helm Admitting Unavailable aFvian Helm Attending Unavailable Angle Santana Primary Care Unavailable Jim Randhawa Attending Unavailable Beatriz Oh Admitting Unavailable Los Grissom Unavailable Angle Santana Primary Care Unavailable Allergies Allergy Classification Reported Allergen(s) Allergy Type Date of Onset Reaction(s) Facility (11 sources) Amoxicillin Drug Allergy 10-29-19 23 Unknown, [facility] (5 sources) Amoxicillin / Clavulanate Drug Allergy Unknown [employer] Other (12 sources) Povidone-Iodine; Translations: [POVIDONE-IODINE] Drug Allergy 10-11-19 23 Unknown, [facility] (9 sources) Sulfamethoxazole / Trimethoprim Drug Allergy Unknown [employer] Other (1 source) sulfaSALAzine Drug Allergy Unknown [employer] Other (7 sources) Amoxicillin / Clavulanate Drug Allergy 11-26-19 13 Unknown [facility] (1 source) Bumetanide Drug Allergy 03-22-20 16 [facility] (1 source) Cephalexin Drug Allergy 01-15-20 14 [facility] (2 sources) gabapentin; Translations: [GABAPENTIN] Drug Allergy 08-19-19 22 [facility] (3 sources) Povidone-Iodine Drug Allergy 11-26-19 13 [facility] (1 source) pregabalin; Translations: [LYRICA] Drug Allergy 08-19-19 22 [facility] (6 sources) Sulfonamides (Antibiotic); Translations: [SULFA (SULFONAMIDE ANTIBIOTICS)] Drug allergy (disorder) 11-26-19 13 Rash [facility] (1 source) Sulfonamide Drug allergy Unknown [employer] Other (7 sources) Substance with sulfonamide structure and antibacterial mechanism of action (substance) Drug allergy Unknown [employer] Other (3 sources) Clavulanate; Translations: [clavulanic acid] Drug Allergy 10-29-19 Diarrhea [facility] (1 source) Ciprofloxacin Drug Allergy 05-26-20 [facility] Repository (1 source) Cephalexin; Translations: [CEPHALEXIN] Drug Allergy 06-13-20 14 [facility] Rep[facility] (1 source) Ciprofloxacin; Translations: [CIPROFLOXACIN] Drug Allergy 10-11-19 23 [facility] (1 source) Iodine; Translations: [IODINE] Drug Allergy 11-28-19 [facility] (1 source) pregabalin; Translations: [PREGABALIN] Drug Allergy 10-11-19 23 [facility] (1 source) Sulfamethoxazole / Trimethoprim; Translations: [SULFAMETHOXAZOLE-T RIMETHOPRIM] Drug Allergy 11-28-19 [facility] (1 source) AMOXICILLIN-POT CLAVULANATE; Translations: [AMOXICILLIN-POT CLAVULANATE] Propensity to adverse reactions to drug (disorder) 06-13-20 [facility] Repository (1 source) Amoxicillin Drug Allergy 10-29-19 [facility] Rep[facility] (1 source) Povidone-Iodine Drug Allergy 10-29-19 [facility] Rep[facility] (1 source) Sulfonamides (Antibiotic) Drug allergy (disorder) 10-29-19 [facility] Repository Medications Current Medications Medication Drug Class(es) Dates Sig (Normalized) Sig (Original) ALPRAZolam 0.25 mg oral tablet (11 sources) Benzodiazepine Start: 08-31-2018 take 2 tablets [...] Active amitriptyline hydrochloride 150 mg oral tablet (13 sources) Tricyclic Antidepressant Start: 10-28-2022 take 150 mg by mouth once daily Amitriptyline Active 150 MG PO Daily October 28, 2022 12:00am Start: 10-28-2022 take 300 mg by mouth at bedtim e Amitriptyline Active 300 MG PO Bedtime October 27, 2022 11:00pm Start: 08-31-2018 End: 09-04-2018 take 200 mg by mouth once daily Amitriptyline Disconti nued 200 MG PO Daily August 31, 2018 12:00am September 04, 2018 6:59am ARIPiprazole 2 mg oral tablet (11 sources) Atypical Antipsychotic Start: 10-28-2022 take 2 mg by mouth once daily Aripiprazole Active 2 MG PO Daily October 27, 2022 11:00pm B Complex (Folic Acid) - (9 sources) B Complex (Folic Acid) - as directed Orally ONCE A DAY Active bumetanide 1 mg oral tablet (15 sources) Loop Diuretic Start: 07-03-2023 take 2 [...] 2022 6:46pm take 1 tablet by joseph every twenty-four hours Bumetanide 1 MG 1 tablet Orally Once a day Active butorphanol tartrate 1 mg/actuat metered dose nasal spray (3 sources) Opioid Agonist/Antagonist Start: 10-28-2022 End: 06-30-2023 Butorphanol Active 1 SPRAY INTRANASAL Daily June 30, 2023 12:00am calcium acetate 667 mg oral capsule (6 sources) Start: 10-28-2022 take 667 mg by [...] Active calcium carbonate 500 mg chewable tablet (9 sources) take 2 tablets by mouth twice daily as needed Calcium Carbonate Antacid 500 MG 2 tablets Orally Twice a day PRN Active cetirizine hydrochloride 10 mg oral tablet (1 source) Histamine-1 Receptor Antagonist take 1 tablet by mouth every twenty-four hours Cetirizine HCl 10 MG 1 tablet Orally Once a day Active Cholecalciferol (9 sources) Vitamin D take 1 capsule by [...] DULoxetine 60 mg delayed release oral capsule (11 sources) Serotonin and Norepinephrine Reuptake Inhibitor Start: take 120 mg by mouth once daily Duloxetine Active 120 MG PO Daily October 27, 2022 11:00pm take 1 capsule by mo uth every twelve hours DULoxetine HCl 60 MG 1 capsule Orally Tw ice a day Active 72 hr fentaNYL 0.1 mg/hr transdermal system (14 sources) Opioid Agonist Start: 10-28-2022 Fentanyl Activ [...] hyoscyamine sulfate 0.125 mg disintegrating oral tablet (9 sources) take 1 tablet by mouth every six hours Hyoscyamine Sulfate 0.125 MG 1 tablet on the tongue and allow to dissolve Orally Four times a day Active levothyroxine sodium 0.1 mg oral tablet (13 sources) l-Thyroxine Start: 023 take 100 ug [...] day Active linaclotide 0.29 mg oral capsule (11 sources) Guanylate Cyclase-C Agonist Start: 10-28-2022 Linaclotide (Linzess ) 290 mcg capsule Active 290 MCG PO Every 48 hours October 27, 2022 11:00pm Start: 10-28-2022 take 1 capsule by mo [facility] once daily Linaclotide (Linzess) 290 mcg capsule Active 290 MCG PO Daily October 28, 2022 12:00am Linzess 290 290m cg 1 PO every other day Active Linzess 290 290m cg 1 PO Every AM Active liothyronine sodium 0.025 mg oral tablet (13 sources) l-Triiodothyronine Start: 10-28-2022 End: 06-30-2023 take 1 tablet by mouth once daily Liothyronine (Cytomel) 25 mcg Tablet Active 25 MCG PO DAILY@0630 30 30 July 03, 2023 12:00am take 1 tablet by joseph every twenty-four hours Liothyronine Sodium 25 MCG 1 tablet on a n empty stomach Orally Once a day Active loratadine 10 mg oral tablet (4 sources) Start: 06-29-2023 take 1 tablet by mouth once daily Loratadine (Claritin) 10 mg Tablet Active 10 MG PO Daily June 29, 2023 12:00am metoprolol tartrate 25 mg oral tablet (11 sources) beta-Adrenergic Catrachita Start: 08-31-2018 take 25 [...] tablet with food Orally Twice a day Not-Taking/PRN Multi For Her - (9 sources) Multi For Her - as directed Orally Active ondansetron 4 mg oral tablet (11 sources) Serotonin-3 Receptor Antagonist Start: 08-31-2018 Ondansetron Hcl (Zofran) 4 mg Tablet Active 4 MG PO every 6 to 8 hours August 31, 2018 12:00am [facility] needed Ondansetron 4 MG 1 tablet on the tongue and allow to dissolve Orally Once a day PRN Active pantoprazole 40 mg delayed release oral tablet (12 sources) Proton Pump Inhibitor Start: 06-30-2023 take [...] 10:41am Start: 08-31-2018 take 1 tablet by [facility] once daily Pantoprazole (Protonix) 20 mg Tablet,Delayed Release (Dr/Ec) Active 20 MG PO Daily August 31, 2018 1:00am pramipexole dihydrochloride 1 mg oral tablet (1 source) Nonergot Dopamine Agonist Start: 06-30-2023 take 1 tablet by mouth once daily Pramipexole (Mirapex) 1 mg Tablet Active 1 MG PO Daily June 30, 2023 12:00am primidone 50 mg oral tablet (12 sources) Anti-epileptic Agent Start: 06-29-2023 take 100 mg by mouth at bedtime Primidone Active 100 MG PO Bedtime June 29, 2023 12:00am Start: 08-31-2018 End: 09-04-2018 take 100 mg by mouth twice daily Primidone Discontinued 100 MG PO Twice daily August 31, 2018 12:00am September 04, 2018 6:59am take 2 tablets by [facility] every twenty-four hours Primidone 50 MG [...] mg / valsartan 103 mg oral tablet (17 sources) Angiotensin 2 Receptor Catrachita Start: take 1 tablet by mouth twice daily Sacubitril-Valsartan (Entresto) 97-103 mg tablet Active 1 TAB PO Twice daily June 29, 2023 12:00am Start: 10-28-2022 End: 06-29-2023 take 1 tablet by mouth twice daily Sacubitril-Valsartan (Entresto) 49-51 mg tablet Discontinued 1 TAB PO Twice daily October 27, 2022 11:00pm June 29, 2023 11:34pm take 3 tablets by mo ut twice daily Sacubitril-Valsartan 97-103 MG 3 tablet Orally Twice a day Active take 3 tablets by mo uth twice daily Sacubitril-Valsartan 24-26 MG 3 tablet Orally Twice a day Active sevelamer carbonate 800 mg oral tablet (6 sources) Phosphate Binder Start: 06-29-2023 take 1 tablet by mouth three times daily at mealtime Sevelamer Carbonate (Renvela) 800 mg Tablet Active 800 MG PO Three times daily June 29, 2023 12:00am must administer with a meal/food tiZANidine 4 mg oral capsule (11 sources) Central alpha-2 Adrenergic Agonist Start: 08-31-2018 [...] / oxyCODONE hydrochloride 5 mg oral tablet (12 sources) Opioid Agonist Start: 06-29-2023 End: 06-30-2023 [...] Start: 08-31-2018 take 2 tablets by mo uth every four to six hours Oxycodone-Acetaminophen (Percocet) 5-325 mg Tablet Active 2 TAB PO EVERY 4-6 HOURS August 31, 2018 1:00am take 2 tablets by mo uth every four hours as needed oxyCODONE-Acetaminophen 5-325 MG 2 table t as needed Orally every 4 hrs PRN Active [id number] actuat albuterol 0.09 mg/actuat metered dose [...] 2018 6:59am metoclopramide 5 mg oral tablet (10 sources) Dopamine-2 Receptor Antagonist Start: 08-31-2018 End: 06-30-2023 take 1 tablet by mouth once daily Metoclopramide Hcl (Reglan) 5 mg Tablet Discontinued 5 MG PO Daily August 31, 2018 12:00am June 30, 2023 12:26am take 1 tablet by mouth every six hours Metoclopramide HCl 10 MG 1 tablet before meals Orally Four times a day Active Ra-Cqrirta-Nyj-Iron Fm-Fa-Vitk (Multi For Her) 18 mg iron-600 mcg-80 mcg Tablet (2 sources) Start: 08-31-2018 End: 06-30-2023 take 1 tablet by mouth once daily Yb-Fgyoxwo-Gwq-Iron Fm-Fa-Vitk (Multi For Her) 18 mg iron-600 mcg-80 mcg Tablet Discontinued 1 TAB PO Daily August 31, 2018 12:00am June 30, 2023 12:26am Start: 08-31-2018 take 1 tablet by joseph th once daily Si-Curmkyo-Egg-Iron Fm-Fa-Vitk (Multi For Her) 18 mg iron-600 [...] disease (3 sources) Atherosclerotic heart disease of [place] coronary artery without angina pectoris; Translations: [ASHD BILL [place] W/O ANGINA PECTORIS] Onset: 3 Chronic Deficiency and other anemia (9 sources) Anemia of renal disease; Translations: [Anemia [...] medical drugs (1 source) Adverse effect of ezoazpopyvr-nkmwzdrvmi-l nzyme inhibitors, initial encounter; Translations: [ADVERSE EFFECT [...] 1 Resolved: 1 Episodic Headache; including migraine (13 sources) Refractory migraine with aura; Translations: [Persistent [...] [DEPRESSION UNSPECIFIED] Onset: 3 Nausea and vomiting (9 sources) Nausea; Translations: [Nausea] Episodic Nutritional deficiencies (14 sources) Vitamin D deficiency; Translations: [Vitamin D deficiency, unspecified] Onset: 1 Resolved: 1 Chronic Osteoarthritis (4 sources) Bilateral primary osteoarthritis of hip; Translations: [Unilateral primary osteoarthritis, left knee] Onset: 3 Chronic Osteoporosis (1 source) Age-related osteoporosis without current pathological fracture; Translations: [AGE-REL OSTEOPOR W/O CURR PATH FX] Onset: 3 Chronic Other aftercare (2 sources) Polypharmacy ; Translations: [Other halfway (current) drug therapy] 09-04-2018 Episodic Other aftercare (1 source) Other halfway (current) drug therapy; Translations: [OTH PRISON 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 THERAPY] Onset: 3 Episodic Other [...] Episodic Other diseases of kidney and ureters (9 sources) Hyperparathyroidism due to renal insufficiency; Translations: [Secondary hyperparathyroidism of renal origin] Chronic Other diseases of kidney and ureters (5 sources) Secondary hyperparathyroidism of renal origin; Translations: [SEC HYPERPARATHYROIDISM RENAL ORIGN] Onset: 1 Resolved: 1 Chronic Other diseases of veins and lymphatics (2 sources) Lymphedema, not elsewhere classified; Translations: [Lymphedema, not elsewhere classified] Onset: 4 Chronic Other diseases of veins and lymphatics (1 source) Venous insufficiency (chronic) (peripheral); Translations: [VENOUS INSUFF CHRONIC PERIPHERAL] Onset: 3 Episodic Other endocrine disorders (18 sources) Hypoglycemia; Translations: [Hypoglycemia, unspecified] Chronic Other gastrointestinal disorders (9 sources) Diarrhea; Translations: [Diarrhea, unspecified] Episodic Other [...] Chronic Other nutritional; endocrine; and metabolic disorders (3 sources) Hyperphosphatemia; Translations: [Other disorders of phosphorus [...] ASHWIN] Onset: 08-16-2022 Episodic Malaise and fatigue (9 sources) Asthenia; Translations: [Weakness] Onset: 03-31-2022 09-04-2018 Episodic Menopausal disorders (1 source) Hormone replacement therapy; Translations: [HORMONE REPLACEMENT THERAPY] Onset: 08-17-2022 Episodic Nonmalignant breast conditions (1 source) Unspecified lump in the right breast, unspecified quadrant; Translations: [UNS LUMP IN RT BREAST UNS QUADRANT] Onset: 01-25-2022 Episodic Other connective tissue disease (1 source) Other muscle spasm; Translations: [OTHER MUSCLE SPASM] Onset: 05-05-2022 Episodic Other diseases of kidney and ureters (3 sources) Disorder of kidney and ureter, unspecified; Translations: [DISORDER KIDNEY AND URETER UNS] Onset: 10-20-2022 Episodic Other injuries and conditions due to [...] Onset: 10-28-2022 Episodic Other non-traumatic joint disorders (7 sources) Pain in left knee; Translations: [PAIN IN LEFT KNEE] Onset: 08-17-2022 Episodic Other non-traumatic joint disorders (3 sources) Pain in left hip; Translations: [PAIN IN LEFT HIP] Onset: 11-10-2022 Episodic Other non-traumatic joint disorders (1 source) [...] Value Interpretation Reference Range Facility Office Visiton 07-13-2023 Follow-up visit [id number] Loren Moser 1960 F Date Provider Department Center 07/13/2023 BENJIE LERMA Family History Family history unknown: Yes Level of Service:75941 [place] OFFICE/OUTPATIENT ESTABLISHED LOW MDM 20 MIN Normal [facility] Absolute reticulocyte countO rdered By: Los Grissom on 07-03-2023 Reticulocytes (Bld) [#/Vol] 0.039 10*6/uL 0.024-0.08 4 [facility] Basic Metabolic Panelon Creatinine Clr Calc Pharmacy 25.88 Normal [facility] Comment on above: Performed By: #### M G, [id number], RETIC, FE and TIBC, JOSE, BMP #### [facility] [address] GFR/1.73 sq M.predicted MDRD (S/P/Bld) [Vol rate/Area] 23.348 mL/min/{1.73_m2} Normal [facility] Comment on above: Performed By: #### Nadya G, [id number], RETIC, FE and TIBC, JOSE, BMP #### [facility] [address] Calcium [Mass/volume] in Ser um or PlasmaOrdered By: Jim Randhawa on 07-03-2023 Calcium [Mass/Vol] 8.3 mg/dL Low 8.6-10.3 [facility] Comment on above: Performed By: #### Nadya G, [id number], RETIC, FE and TIBC, JOSE, BMP #### [address] Carbon dioxide, total [Moles /volume] in Serum or PlasmaOrdered By: Jim Randhawa on 07-03-2023 CO2 [Moles/Vol] 20.4 mmol/L Low 21.0-31.0 [facility] Comment on above: Performed By: #### Nadya G, [id number], RETIC, FE and TIBC, JOSE, BMP #### [address] Chloride [Moles/volume] in S andrea or PlasmaOrdered By: Jim Randhawa on 07-03-2023 Chloride [Moles/Vol] 106 mmol/L Normal 98-107 [facility] Comment on above: Performed By: #### Nadya G, [id number], RETIC, FE and TIBC, JOSE, BMP #### [facility] [address] Creatinine [Mass/volume] in Serum or PlasmaOrdered By: Jim Randhawa on 07-03-2023 Creatinine [Mass/Vol] 2.32 mg/dL High 0.60-1.20 [facility] Comment on above: Performed By: #### Nadya G, [id number], RETIC, FE and TIBC, JOSE, BMP #### [facility] [address] ECH echo transthoracicon ECH echo transthoracic [facility] Main [place] [address] [place] [address] Echocardiogram Signed Patient: Mabel Moser MR#: [id number] : 1960 Acct:[id number] Age/Sex: 63 / F ADM Date: 06/29/23 Loc: Room: [address] [place] [address] Type: DIS IN Attending Dr: Jim Randhawa DO Ordering Provider: Jim Randhawa DO Date of Service: 07/02/2301/16/859 [facility] echo transthoracic: swelling Copies to: MD Jim Meyer DO Weight: 189 lb Performed By: Judah Pinto RDCS BSA: 1.9 m2 BP: 112/75 mmHg HR: [...] FS: 40.8 % Ao root area: 7.8 [id number] ap4: 8.4 cm TAPSE: 2.6 cm EDV(Teich): [...] Signed By: Benjie Leach MD 07/03/23 1445 [facility] Ferritin [Mass/volume] in Se rum or PlasmaOrdered By: Los Grissom on 07-03-2023 Ferritin [Mass/Vol] 71.9 ng/mL Normal 11.0-306.8 [facility] Comment on above: Performed By: #### M G, [id number], RETIC, FE and TIBC, JOSE, BMP #### [facility] [address] [place] [address] Folate [Mass/volume] in Seru m or PlasmaOrdered By: Los Grissom on 07-03-2023 Folate [Mass/Vol] 11.1 ng/mL >5.9 [facility] Comment on above: Folate reference ran ge: >5.9 ng/mlThe WHO technical consultation on folate and vitamin [id number] has determined that folate concentrations lessthan 4 ng/ml are considered deficient. Glucose [Mass/volume] in Ser um or PlasmaOrdered By: Jim Randhawa on 07-03-2023 Glucose [Mass/Vol] 99 mg/dL Normal 70-100 [facility] Comment on above: ADA recommended refe rence rangeRandom Glucose Reference Range is dependent on time and content of last meal. Glucose of more than 200 mg/dL in a nonstressed, ambulatory subject supports the diagnosis of Diabetes Mellitus. Result Comment: [facility] Glucose Reference Range is dependent on time and content of last meal. Glucose of more than 200 mg/dL in a nonstressed, ambulatory subject supports the diagnosis of Diabetes Mellitus. ADA recommended reference range Performed By: #### M G, [id number], RETIC, FE and TIBC, JOSE, BMP #### [facility] [address] Iron [Mass/volume] in Serum or PlasmaOrdered By: Los Grissom on 07-03-2023 Iron [Mass/Vol] 59 ug/dL Normal 50-212 [facility] Comment on above: Performed By: #### M G, [id number], RETIC, FE and TIBC, JOSE, BMP #### [facility] [address] Iron and TIBC Profileon % Iron Saturation 22.8 % Normal 20-50 [facility] Comment on above: Performed By: #### M G, [id number], RETIC, FE and TIBC, JOSE, BMP #### [facility] [address] Total Iron Binding Capacity 259 ug/dL Normal 255-450 [facility] Comment on above: Performed By: #### M G, [id number], RETIC, FE and TIBC, JOSE, BMP #### [facility] [address] Iron binding capacity [Mass/ volume] in Serum or PlasmaOrdered By: Los Grissom on 07-03-2023 Iron binding capacity [Mass/Vol] 259 ug/dL 255-450 [facility] Iron saturation [Mass Fracti on] in Serum or PlasmaOrdered By: Los Grissom on 07-03-2023 Iron saturation [Mass fraction] 22.8 % 20-50 [facility] Magnesium [Mass/volume] in S andrea or PlasmaOrdered By: Jim Randhawa on 07-03-2023 Magnesium [Mass/Vol] 2.0 mg/dL Normal 1.9-2.7 [facility] Comment on above: Performed By: #### M G, [id number], RETIC, FE and TIBC, JOSE, BMP #### [address] No Panel InformationOrdered By: Jim Randhawa on 07-03-2023 Estimated GFR (CKD-EPI) 23.348 mL/Min [facility] Pharmacy Creatinine Clearance (Chem 25.88 [facility] Potassium [Moles/volume] in Serum or PlasmaOrdered By: Jim Randhawa on 07-03-2023 Potassium [Moles/Vol] 3.9 mmol/L Normal 3.5-5.1 [facility] Comment on above: Performed By: #### M G, [id number], RETIC, FE and TIBC, JOSE, BMP #### [address] Reticulocyte Counton 024 Reticulocyte Number 0.039 10*6/uL Normal 0.024-0 .08 4 [facility] Comment on above: Result Comment: PERF ORMED BY: [place] [address] PATHOLOGIST [employer] TANNER GAVIN M.D. Performed By: #### M G, [id number], RETIC, FE and TIBC, JOSE, BMP #### [address] Reticulocyte Percent 1.5 % Normal 0.5-1.5 [facility] Comment on above: Performed By: #### M G, [id number], RETIC, FE and TIBC, JOSE, BMP #### [place] [address] [place] Reticulocytes/100 RBC Auto ( Bld)Ordered By: Los Grissom on 07-03-2023 Reticulocytes/100 RBC (Bld) 1.5 % 0.5-1.5 [facility] Serum or plasma anion gap de terminationOrdered By: Jim Randhawa on 07-03-2023 Anion gap [Moles/Vol] 11.5 mmol/L Normal 6.0-15.0 [facility] Comment on above: Performed By: #### M G, [id number], RETIC, FE and TIBC, JOSE, BMP #### [address] Sodium [Moles/volume] in Ser um or PlasmaOrdered By: Jim Randhawa on 07-03-2023 Sodium [Moles/Vol] 134 mmol/L Low 136-145 [facility] Comment on above: Performed By: #### M G, [id number], RETIC, FE and TIBC, JOSE, BMP #### [address] Transferrin [Mass/volume] in Serum or PlasmaOrdered By: Los Grissom on 07-03-2023 Transferrin [Mass/Vol] 185 mg/dL Low 203-362 [facility] Comment on above: Performed By: #### M G, [id number], RETIC, FE and TIBC, JOSE, BMP #### [address] Urea nitrogen [Mass/volume] in Serum or PlasmaOrdered By: Jim Randhawa on 07-03-2023 Urea nitrogen [Mass/Vol] 95 mg/dL High 7-25 [facility] Comment on above: Performed By: #### M G, [id number], RETIC, FE and TIBC, JOSE, BMP #### [address] Vit. B12/Folate Profileon Folate 11.1 ng/mL Normal >5.9 [facility] Comment on above: Result Comment: Sandra te reference range: >5.9 ng/ml The WHO technical consultation on folate and vitamin b12 deficiencies has determined that folate concentrations less than 4 ng/ml are considered deficient. PERFORMED BY: [place] [address] PATHOLOGIST [employer] TANNER GAVIN M.D. Performed By: #### M G, [id number], RETIC, FE and TIBC, JOSE, BMP #### [address] [address] [place] Vitamin B12 ser/plasOrdered By: Los Grissom on 07-03-2023 Cobalamin (Vitamin B12) [Mass/Vol] 3564 pg/mL High 180-914 [facility] Comment on above: Performed By: #### M G, [id number], RETIC, FE and TIBC, JOSE, BMP #### [facility] [address] Basic Metabolic Panelon Anion gap [Moles/Vol] 11.0 mmol/L Normal 6.0-15.0 [facility] Comment on above: Performed By: #### M G, [id number], RETIC, FE and TIBC, JOSE, BMP #### [facility] [address] [place] [address] Calcium [Mass/Vol] 8.4 mg/dL Low 8.6-10.3 [facility] Comment on above: Performed By: #### M G, [id number], RETIC, FE and TIBC, JOSE, BMP #### [facility] [address] [place] [address] Chloride [Moles/Vol] 104 mmol/L Normal 98-107 [facility] Comment on above: Performed By: #### M G, [id number], RETIC, FE and TIBC, JOSE, BMP #### [facility] [address] [place] [address] CO2 [Moles/Vol] 20.2 mmol/L Low 21.0-31.0 [facility] Comment on above: Performed By: #### M G, [id number], RETIC, FE and TIBC, JOSE, BMP #### [facility] [address] [place] [address] Creatinine [Mass/Vol] 2.31 mg/dL High 0.60-1.20 [facility] Comment on above: Performed By: #### M G, [id number], RETIC, FE and TIBC, JOSE, BMP #### [facility] [address] [place] [address] Creatinine Clr Calc Pharmacy 26.22 [facility] Comment on above: Performed By: #### M G, [id number], RETIC, FE and TIBC, JOSE, BMP #### [address] GFR/1.73 sq M.predicted MDRD (S/P/Bld) [Vol rate/Area] 23.469 mL/min/{1.73_m2} [facility] Comment on above: Performed By: #### M G, [id number], RETIC, FE and TIBC, JOSE, BMP #### [facility] [address] Glucose [Mass/Vol] 89 mg/dL Normal 70-100 [facility] Comment on above: Result Comment: [facility] Glucose Reference Range is dependent on time and content of last meal. Glucose of more than 200 mg/dL in a nonstressed, ambulatory subject supports the diagnosis of Diabetes Mellitus. ADA recommended reference range Performed By: #### M G, [id number], RETIC, FE and TIBC, JOSE, BMP #### [address] Potassium [Moles/Vol] 4.2 mmol/L Normal 3.5-5.1 [facility] Comment on above: Performed By: #### M G, [id number], RETIC, FE and TIBC, JOSE, BMP #### [address] Sodium [Moles/Vol] 131 mmol/L Low 136-145 [facility] Comment on above: Performed By: #### M G, [id number], RETIC, FE and TIBC, JOSE, BMP #### [address] Urea nitrogen [Mass/Vol] 100 mg/dL High 7-25 [facility] Comment on above: Performed By: #### M G, [id number], RETIC, FE and TIBC, JOSE, BMP #### [address] Erythrocyte distribution wid th Auto (RBC) [Ratio]Ordered By: Jim Randhawa on 07-02-2023 Erythrocyte distribution width (RBC) [Ratio] 14.2 % 11.9-15.3 [facility] Hematocrit Auto (Bld) [Volum e fraction]Ordered By: Jim Randhawa on 07-02-2023 Hematocrit (Bld) [Volume fraction] 25.0 % 34.0-46.4 [facility] Hemoglobin [Mass/volume] in BloodOrdered By: Jim Randhawa on 07-02-2023 Hemoglobin (Bld) [Mass/Vol] 8.4 g/dL 11.8-15.4 [facility] Hemogram CBC Without Diffon 07-02-2023 Erythrocyte distribution width (RBC) [Ratio] 14.2 % Normal 11.9-15.3 [facility] Comment on above: Performed By: #### Nadya G, [id number], RETIC, FE and TIBC, JOSE, BMP #### [address] Hematocrit (Bld) [Volume fraction] 25.0 % Low 34.0-46.4 [facility] Comment on above: Performed By: #### Nadya G, [id number], RETIC, FE and TIBC, JOSE, BMP #### [address] Hemoglobin (Bld) [Mass/Vol] 8.4 g/dL Low 11.8-15.4 [facility] Comment on above: Performed By: #### M G, [id number], RETIC, FE and TIBC, JOSE, BMP #### [address] MCH (RBC) [Entitic mass] 32.3 pg Normal 24.7-34.3 [facility] Comment on above: Performed By: #### M G, [id number], RETIC, FE and TIBC, JOSE, BMP #### [address] MCV (RBC) [Entitic vol] 96.6 fL Normal 80-100 [facility] Comment on above: Performed By: #### M G, [id number], RETIC, FE and TIBC, JOSE, BMP #### [address] Mean Corpuscular HGB Conc 33.4 g/dL Normal 32.0-35.0 [facility] Comment on above: Performed By: #### M G, [id number], RETIC, FE and TIBC, JOSE, BMP #### [address] Platelet mean volume (Bld) [Entitic vol] 7.7 fL Normal 6.3-10.7 [facility] Comment on above: Result Comment: PERF ORMED BY: [place] [address] PATHOLOGIST [employer] TANNER GAVIN M.D. Performed By: #### M G, [id number], RETIC, FE and TIBC, JOSE, BMP #### [address] Platelets (Bld) [#/Vol] 217 10*3/uL Normal 150-450 [facility] Comment on above: Performed By: #### M G, [id number], RETIC, FE and TIBC, JOSE, BMP #### [address] RBC (Bld) [#/Vol] 2.59 10*6/uL Low 3.60-5.00 [facility] Comment on above: Performed By: #### M G, [id number], RETIC, FE and TIBC, JOSE, BMP #### [address] WBC (Bld) [#/Vol] 6.1 10*3/uL Normal 3.8-11.6 [facility] Comment on above: Performed By: #### M G, [id number], RETIC, FE and TIBC, JOSE, BMP #### [place] [address] [place] Leukocytes [#/volume] correc nicol for nucleated erythrocytes in Blood by Automated counOrdered By: Jim Randhawa on 07-02-2023 WBC corrected for nucl RBC Auto (Bld) [#/Vol] 6.1 10*3/uL 3.8-11.6 [facility] MCH Auto (RBC) [Entitic mass ]Ordered By: Jim Randhawa on 07-02-2023 MCH (RBC) [Entitic mass] 32.3 pg 24.7-34.3 [facility] MCHC Auto (RBC) [Mass/Vol]Or dered By: Jim Randhawa on 07-02-2023 MCHC (RBC) [Mass/Vol] 33.4 g/dL 32.0-35.0 [facility] MCV Auto (RBC) [Entitic vol] Ordered By: Jim Randhawa on 07-02-2023 MCV (RBC) [Entitic vol] 96.6 fL 80-100 [facility] Magnesiumon 07-02-2023 Magnesium [Mass/Vol] 2.1 mg/dL Normal 1.9-2.7 [facility] Comment on above: Result Comment: PERF ORMED BY: [facility] [address] [place] [address] PATHOLOGIST [employer] TANNER GAVIN M.D. Performed By: #### M G, [id number], RETIC, FE and TIBC, JOSE, BMP #### [facility] [address] Platelet mean volume Auto (B ld) [Entitic vol]Ordered By: Jim Randhawa on 07-02-2023 Platelet mean volume (Bld) [Entitic vol] 7.7 fL 6.3-10.7 [facility] Platelets Auto (Bld) [#/Vol] Ordered By: Jim Randhawa on 07-02-2023 Platelets (Bld) [#/Vol] 217 10*3/uL 150-450 [facility] RBC Auto (Bld) [#/Vol]Ordere d By: Jim Randhawa on 07-02-2023 RBC (Bld) [#/Vol] 2.59 10*6/uL 3.60-5.00 [facility] Basic Metabolic Panelon -0 Anion gap [Moles/Vol] 11.9 mmol/L Normal 6.0-15.0 [facility] Comment on above: Order Comment: LINE DRAW Performed By: #### M G, [id number], RETIC, FE and TIBC, JOSE, BMP #### [facility] [address] Calcium [Mass/Vol] 8.9 mg/dL Normal 8.6-10.3 [facility] Comment on above: Order Comment: LINE DRAW Performed By: #### M G, [id number], RETIC, FE and TIBC, JOSE, BMP #### [address] Chloride [Moles/Vol] 108 mmol/L High 98-107 [facility] Comment on above: Order Comment: LINE DRAW Performed By: #### M G, [id number], RETIC, FE and TIBC, JOSE, BMP #### [address] CO2 [Moles/Vol] 18.5 mmol/L Low 21.0-31.0 [facility] Comment on above: Order Comment: LINE DRAW Performed By: #### M G, [id number], RETIC, FE and TIBC, JOSE, BMP #### [facility] [address] [place] [address] Creatinine [Mass/Vol] 2.63 mg/dL Significan t change up 0.60-1.20 [facility] Comment on above: Order Comment: LINE DRAW Performed By: #### M G, [id number], RETIC, FE and TIBC, JOSE, BMP #### [facility] [address] Creatinine Clr Calc Pharmacy 23.09 [facility] Comment on above: Order Comment: LINE DRAW Performed By: #### M G, [id number], RETIC, FE and TIBC, JOSE, BMP #### [facility] [address] [place] [address] [place] GFR/1.73 sq M.predicted MDRD (S/P/Bld) [Vol rate/Area] 20.085 mL/min/{1.73_m2} Normal [facility] Comment on above: Order Comment: LINE DRAW Performed By: #### M G, [id number], RETIC, FE and TIBC, JOSE, BMP #### [facility] [address] Glucose [Mass/Vol] 128 mg/dL High 70-100 [facility] Comment on above: Order Comment: LINE DRAW Result Comment: [facility] Glucose Reference Range is dependent on time and content of last meal. Glucose of more than 200 mg/dL in a nonstressed, ambulatory subject supports the diagnosis of Diabetes Mellitus. ADA recommended reference range Performed By: #### M G, [id number], RETIC, FE and TIBC, JOSE, BMP #### [facility] [address] Potassium [Moles/Vol] 4.4 mmol/L Normal 3.5-5.1 [facility] Comment on above: Order Comment: LINE DRAW Performed By: #### M G, [id number], RETIC, FE and TIBC, JOSE, BMP #### [facility] [address] Sodium [Moles/Vol] 134 mmol/L Low 136-145 [facility] Comment on above: Order Comment: LINE DRAW Performed By: #### M G, [id number], RETIC, FE and TIBC, JOSE, BMP #### [facility] [address] [place] [address] [place] Urea nitrogen [Mass/Vol] 104 mg/dL High 7-25 [facility] Comment on above: Order Comment: LINE DRAW Performed By: #### M G, [id number], RETIC, FE and TIBC, JOSE, BMP #### [facility] [address] Magnesiumon 07-01-2023 Magnesium [Mass/Vol] 2.3 mg/dL Normal 1.9-2.7 [facility] Comment on above: Order Comment: LINE DRAW Result Comment: PERF ORMED BY: [place] [address] PATHOLOGIST [employer] TANNER GAVIN M.D. Performed By: #### M G, [id number], RETIC, FE and TIBC, JOSE, BMP #### [facility] [address] [place] [address] Basic Metabolic Panelon Anion gap [Moles/Vol] 14.6 mmol/L Normal 6.0-15.0 [facility] Comment on above: Performed By: #### M G, [id number], RETIC, FE and TIBC, JOSE, BMP #### [address] Calcium [Mass/Vol] 8.6 mg/dL Normal 8.6-10.3 [facility] Comment on above: Performed By: #### M G, [id number], RETIC, FE and TIBC, JOSE, BMP #### [address] Chloride [Moles/Vol] 109 mmol/L High 98-107 [facility] Comment on above: Performed By: #### M G, [id number], RETIC, FE and TIBC, JOSE, BMP #### [address] CO2 [Moles/Vol] 15.0 mmol/L Low 21.0-31.0 [facility] Comment on above: Performed By: #### M G, [id number], RETIC, FE and TIBC, JOSE, BMP #### [facility] [address] [place] [address] Creatinine [Mass/Vol] 3.16 mg/dL High 0.60-1.20 [facility] Comment on above: Performed By: #### M G, [id number], RETIC, FE and TIBC, JOSE, BMP #### [facility] [address] [place] [address] [place] Creatinine Clr Calc Pharmacy 19.26 Normal [facility] Comment on above: Performed By: #### M G, [id number], RETIC, FE and TIBC, JOSE, BMP #### [facility] [address] [place] [address] [place] GFR/1.73 sq M.predicted MDRD (S/P/Bld) [Vol rate/Area] 16.114 mL/min/{1.73_m2} [facility] Comment on above: Performed By: #### M G, [id number], RETIC, FE and TIBC, JOSE, BMP #### [facility] [address] Glucose [Mass/Vol] 79 mg/dL Normal 70-100 [facility] Comment on above: Result Comment: [facility] Glucose Reference Range is dependent on time and content of last meal. Glucose of more than 200 mg/dL in a nonstressed, ambulatory subject supports the diagnosis of Diabetes Mellitus. ADA recommended reference range Performed By: #### M G, [id number], RETIC, FE and TIBC, JOSE, BMP #### [address] Potassium [Moles/Vol] 4.6 mmol/L Normal 3.5-5.1 [facility] Comment on above: Performed By: #### M G, [id number], RETIC, FE and TIBC, JOSE, BMP #### [facility] [address] Sodium [Moles/Vol] 134 mmol/L Low 136-145 [facility] Comment on above: Performed By: #### M G, [id number], RETIC, FE and TIBC, JOSE, BMP #### [facility] [address] Urea nitrogen [Mass/Vol] 117 mg/dL High 7-25 [facility] Comment on above: Performed By: #### M G, [id number], RETIC, FE and TIBC, JOSE, BMP #### [facility] [address] [place] [address] [place] Magnesiumon 06-30-2023 Magnesium [Mass/Vol] 2.5 mg/dL Normal 1.9-2.7 [facility] Comment on above: Result Comment: PERF ORMED BY: [facility] [address] [facility] [place] [id number] PATHOLOGIST [employer] TANNER GAVIN M.D. Performed By: #### M G, [id number], RETIC, FE and TIBC, JOSE, BMP #### [facility] [address] [place] [id number] [facility] 36on 04-10-2023 36 Patient states she n eeds to cancel her surgery due to her son being on the transplant list, states she would like to reschedule. Normal [facility] Orders Onlyon 04-05-2023 Orders Only [id number] PinalorenLoren jones marii A 1960 F Date Provider Department Center 04/05/2023 [facility] Family History Family history unknown: Yes Normal [facility] Office Visiton 02-22-2023 Follow-up visit [id number] PinaLoren correa A 1960 Date Provider Department Center 02/22/2023 RHIANNON MEDINA YVONNE Barrios [facility] Family History Family history unknown: Yes Level of Service:50137 [place] OFFICE/OUTPATIENT ESTABLISHED MOD MDM 30-39 MIN Normal [facility] Follow-Upon 02-16-2023 Follow-Up [id number] PinaLoren correaa A 1960 Date Provider Department Center 02/16/2023 [facility]THO Family History Family history unknown: Yes Level of Service:73228 [place] OFFICE/OUTPATIENT ESTABLISHED LOW MDM 20-29 MIN Reason for Visit and Comments: Pain [136] [facility] Consultation Noteon 02-10-20 Consultation Note [id number]#1.00CD:127 [facility] 36on 02-08-2023 36 Called patient to in form her she needs the CT done before her follow up w/ francisco. The appt has been cancelled and needs rescheduled. [facility] Consultation Noteon 02-09-20 Consultation Note [id number]#1.00CD:127 [facility] RAD - MISCon 02-08-2023 RAD - MISC [id number]#1.00CD:127 [facility] 29on 01-13-2023 29 Addended by: OLU TORRES on: 02/07/2023 12:47 PM Modules accepted: Orders [facility] Office Visiton 01-13-2023 Follow-up visit [id number] Loren Moser 1960 F Date Provider Department Center 01/13/2023 384SHERLY RIOS [facility]THO Family History Family history unknown: Yes Level of Service:64181 [place] OFFICE/OUTPATIENT NEW MODERATE MDM 45-59 MINUTES Reason for Visit and Comments: Pain [136] Pain [136] [facility] 36on 12-23-2022 36 Please tell her the renal function is much better now (creatinine 1.4 on 12/20/2022). I don't think she need to increase water pills. Follow up labs as scheduled. [facility] Telephoneon 12-23-2022 Telephone [id number] Loren Moser 1960 F Date Provider Department Center 12/23/2022 BENJIE LERMA YVONNE [facility] No family history on file [facility] Office Visiton 12-15-2022 Follow-up visit [id number] Loren Moser 1960 F Date Provider Department Center 12/15/2022 BENJIE LERMA [facility] No family history on file Level of Service:64522 [place] OFFICE/OUTPATIENT ESTABLISHED MOD MDM 30-39 MIN Reason for Visit and Comments: Follow-up [714672] [facility] HPon 11-30-2022 HP H&P reviewed. The car wasserman was examined and there are no changes to the H&P. [facility] NURSNOTEon 11-30-2022 NURSNOTE RN educated pt on d/ c instructions. RN encouraged pt to voice any questions or concerns. Pt verbalizes no questions or concerns at this time. Pt was walked off of unit with all of belongings. [facility] Orders Onlyon 11-23-2022 Orders Only [id number] Loren Moser 1960 F Date Provider Department Center 11/23/2022 MARTHA LAZCANO [facility] No family history on file [facility] CBC AUTO DIFFon 11-22-2022 BASO # 0.0 103/ul Normal 0.0-0.1 [facility] Comment on above: Performed By: #### C BC ####[facility] [address] [place], [place] [address]Dr. Airam Tripathi Basophils/100 WBC (Bld) 0.6 % Normal 0.2-2.0 [facility] Comment on above: Performed By: #### C BC ####[facility] [address] [place], [place] [address]Dr. Airam Tripathi EO # 0.1 103/ul Normal 0.0-0.7 [facility] Comment on above: Performed By: #### C BC ####[facility] [address] [place], [place] [address]Dr. Airam Tripathi Eosinophils/100 WBC (Bld) 1.7 % Normal 0.9-7.0 [facility] Comment on above: Performed By: #### C BC ####[facility] [address] [place], [place] [address]Dr. Airam Tripathi Erythrocyte distribution width (RBC) [Ratio] 15.2 % Critically high 11.0-15.0 [facility] Comment on above: Performed By: #### C BC ####[facility] [address] [place], [place] [address]Dr. Airam Tripathi Hematocrit (Bld) [Volume fraction] 31.6 % Critically low 36.0-48.0 [facility] Comment on above: Performed By: #### C BC ####[facility] [address] [place] [id number]. Airam Tripathi Hemoglobin (Bld) [Mass/Vol] 9.9 g/dL Critically low 12.0-16.0 [facility] Comment on above: Performed By: #### C BC ####[facility] [address] [place] [id number]. Airam Tripathi IG # 0.02 10e3/ul Normal 0.00-0.03 [facility] Comment on above: Performed By: #### C BC ####[facility] [address] [place] [address]Dr. Airam Deuce IG % 0.4 % Normal 0.0-0.5 [facility] Comment on above: Performed By: #### C BC ####[facility] [address] [place], [place] [address]Dr. Selenaneil Tripathi LYMPH # 0.8 103/ul Critically low 1.2-3.8 [facility] Comment on above: Performed By: #### C BC ####[facility] [address] [place] [address]Dr. Airam Deuce Lymphocytes/100 WBC (Bld) 16.9 % Critically low 20.5-60.0 [facility] Comment on above: Performed By: #### C BC ####[facility] [address] [place], [place] [address]Dr. Selenaneil Tripathi MANUAL DIFF REQ NO Normal [facility] Comment on above: Performed By: #### C BC ####[facility] [address] [place] [id number]. Airam Deuce MCH (RBC) [Entitic mass] 28.4 pg Normal 26.7-34.0 [facility] Comment on above: Performed By: #### C BC ####[facility] [address] [place] [id number]. Airam Deuce MCHC (RBC) [Mass/Vol] 31.3 g/dL Normal 29.9-35.2 [facility] Comment on above: Performed By: #### C BC ####[facility] [address] [place] [id number]. Airam Tripathi MCV (RBC) [Entitic vol] 90.8 fL Normal 81.0-99.0 [facility] Comment on above: Performed By: #### C BC ####[facility] [address] [place] [id number]. Airam Tripathi MONO # 0.4 103/ul Normal 0.3-0.8 [facility] Comment on above: Performed By: #### C BC ####[facility] [address] [place] [id number]. Airam Tripathi Monocytes/100 WBC (Bld) 8.9 % Normal 1.7-12.0 [facility] Comment on above: Performed By: #### C BC ####[facility] [address] [place], [place] [address]Dr. Airam Tripathi NEUT # 3.4 103/ul Normal 1.4-6.5 [facility] Comment on above: Performed By: #### C BC ####[facility] [address] [place], [place] [id number]. Airam Tripathi Neutrophils/100 WBC (Bld) 71.5 % Normal 43.0-75.0 [facility] Comment on above: Performed By: #### C BC ####[facility] [address] [place], [place] [id number]. Airam Tripathi Platelet mean volume (Bld) [Entitic vol] 9.4 fL Critically low 9.5-13.5 [facility] Comment on above: Performed By: #### C BC ####[facility] [address] [place] [id number]. Airam Tripathi PLT 302 103/ul Normal 150-450 [facility] Comment on above: Performed By: #### C BC ####[facility] [address] [place], [place] [id number]. Airam Deuce RBC 3.48 106/ul Critically low 4.20-5.40 [facility] Comment on above: Performed By: #### C BC ####[facility] [address] [place] [address]Dr. Airam Tripathi WBC 4.7 103/ul Normal 4.0-11.0 [facility] Comment on above: Performed By: #### C BC ####[facility] [address] [place] [address]Dr. Airam Tripathi PROF 14(COMP METB)on 023 Albumin [Mass/Vol] 3.4 g/dL Normal 3.4-5.0 [facility] Comment on above: Performed By: #### C MP ####[facility] [address] [place] [address]Dr. Airam Tripathi Albumin/Globulin [Mass ratio] 1.0 {ratio} Normal [facility] Comment on above: Performed By: #### C MP ####[facility] [address] [place], [place] [address]Dr. Airam Tripathi ALP [Catalytic activity/Vol] 123 U/L Critically high 46-116 [facility] Comment on above: Performed By: #### C MP ####[facility] [address] [place] [address]Dr. Airam Tripathi ALT [Catalytic activity/Vol] 24 U/L Normal 14-59 [facility] Comment on above: Performed By: #### C MP ####[facility] [address] [place] [address]Dr. Airam Tripathi Anion gap [Moles/Vol] 12.1 mmol/L Normal [facility] Comment on above: Performed By: #### C MP ####[facility] [address] [place] [address]Dr. Airam Tripathi AST [Catalytic activity/Vol] 30 U/L Normal 15-37 [facility] Comment on above: Performed By: #### C MP ####[facility] [address] [place] [address]Dr. Airam Tripathi Bilirubin [Mass/Vol] 0.4 mg/dL Normal 0.2-1.0 [facility] Comment on above: Performed By: #### C MP ####[facility] [address] [place], [place] [address]Dr. Airam Tripathi Calcium [Mass/Vol] 8.9 mg/dL Normal 8.5-10.1 [facility] Comment on above: Performed By: #### C MP ####[facility] [address] [place] [address]Dr. Airam Tripathi Chloride [Moles/Vol] 95 mmol/L Critically low 98-107 [facility] Comment on above: Performed By: #### C MP ####[facility] [address] [place], [place] [address]Dr. Airam Tripathi CO2 [Moles/Vol] 28.7 mmol/L Normal 21.0-32.0 [facility] Comment on above: Performed By: #### C MP ####[facility] [address] [place], [place] [address]Dr. Airam Tripathi Creatinine [Mass/Vol] 1.25 mg/dL Critically high 0.55-1.02 [facility] Comment on above: Performed By: #### C MP ####[facility] [address] [place], [place] [address]Dr. Airam Tripathi EGFR-AF ARGENTINE 53 mL/min/1.73m2 Critically low >=60 [facility] Comment on above: Performed By: #### C MP ####[facility] Re[address] [place], [place] [address]Dr. Airam Tripathi EGFR-NON AF ARGENTINE 44 mL/min/1.73m2 Critically low >=60 [facility] Comment on above: Performed By: #### C MP ####[facility] [address] [place], [place] [address]Dr. Airam Tripathi Globulin (S) [Mass/Vol] 3.5 g/dL Normal [facility] Comment on above: Performed By: #### C MP ####[facility] [address] [place], [place] [address]Dr. Airam Tripathi Glucose [Mass/Vol] 89 mg/dL Normal 74-106 [facility] Comment on above: Performed By: #### C MP ####[facility] [address] [place], [place] [address]Dr. Airam Tripathi Potassium [Moles/Vol] 4.8 mmol/L Normal 3.5-5.1 [facility] Comment on above: Performed By: #### C MP ####[facility] [address] [place], [place] [address]Dr. Airam Tripathi Protein [Mass/Vol] 6.9 g/dL Normal 6.4-8.2 [facility] Comment on above: Performed By: #### C MP ####[facility] Spgjrvxvsf[address] [place], [place] [address]Dr. Airam Tripathi Sodium [Moles/Vol] 131 mmol/L Critically low 136-145 [facility] Comment on above: Performed By: #### C MP ####[facility] Chxdhydizo[address] [place], [place] [address]Dr. Airam Tripathi Urea nitrogen [Mass/Vol] 37.0 mg/dL Critically high 7.0-18.0 [facility] Comment on above: Performed By: #### C MP ####[facility] Ajptvgurvz5[address] [place], [place] [address]Dr. Airam Tripathi Urea nitrogen/Creatinine [Mass ratio] 29.6 mg/mg Normal [facility] Comment on above: Performed By: #### C MP ####[facility] Dgikvsrxch87[address] [place], [place] [address]Dr. Airam Tripathi OSMOLALITYon 11-18-2022 Osmolality [Osmolality] 293 mosm/kg Normal 275-295 [facility] Comment on above: Performed By: #### O SMO ####[facility] Ssacedfnae[address] [place], [place] [address]Dr. Airam Tripathi BNPon 11-16-2022 Natriuretic peptide B (Bld) [Mass/Vol] 1142.0 pg/mL Critically high <=900.0 [facility] Comment on above: Performed By: #### B PLATE GLASS INSTALLER HELPER ####[facility] Nolnogmwgu99[address] [place], [place] [address]Dr. Airam Deuce CBC AUTO DIFFon 11-16-2022 BASO # 0.0 103/ul Normal 0.0-0.1 [facility] Comment on above: Performed By: #### C BC ####[facility] Umbhejajla27[address] [place], [place] [address]Dr. Airam Tripathi Basophils/100 WBC (Bld) 0.3 % Normal 0.2-2.0 [facility] Comment on above: Performed By: #### C BC ####[facility] Jcuudpplrf576[address] [place], [place] [address]Dr. Airam Tripathi EO # 0.3 103/ul Normal 0.0-0.7 [facility] Comment on above: Performed By: #### C BC ####[facility] Hxjvxxdcxt900[address] [place], [place] [address]Dr. Airam Tripathi Eosinophils/100 WBC (Bld) 4.6 % Normal 0.9-7.0 [facility] Comment on above: Performed By: #### C BC ####[facility] Irfbguqjhx1077[address] [place], [place] [address]Dr. Airam Tripathi Erythrocyte distribution width (RBC) [Ratio] 16.1 % Critically high 11.0-15.0 [facility] Comment on above: Performed By: #### C BC ####[facility] Nhsnxzliqh7[address] [place], [place] [address]Dr. Airam Tripathi Hematocrit (Bld) [Volume fraction] 28.0 % Critically low 36.0-48.0 [facility] Comment on above: Performed By: #### C BC ####[facility] Cjrjxymvgv6824[address] [place], [place] [address]Dr. Airam Tripathi Hemoglobin (Bld) [Mass/Vol] 8.9 g/dL Critically low 12.0-16.0 [facility] Comment on above: Performed By: #### C BC ####[facility] Gofxvhbvqe[address] [place], [place] [address]Dr. Airam Tripathi IG # 0.02 10e3/ul Normal 0.00-0.03 [facility] Comment on above: Performed By: #### C BC ####[facility] Hsvqvmyzpa269[address] [place], [place] [address]Dr. Airam Tripathi IG % 0.3 % Normal 0.0-0.5 [facility] Comment on above: Performed By: #### C BC ####[facility] [address]ftosqy[address] [place] [address]DrKianna Airam Deuce LYMPH # 1.5 103/ul Normal 1.2-3.8 [facility] Comment on above: Performed By: #### C BC ####[facility] Zralpbedoe2818 [place] [address]DrKianna Airam Deuce Lymphocytes/100 WBC (Bld) 24.2 % Normal 20.5-60.0 [facility] Comment on above: Performed By: #### C BC ####[facility] Ulatrfujuh[address] [place], [place] [address]DrKianna Selenaneil Tripathi MANUAL DIFF REQ NO Normal [facility] Comment on above: Performed By: #### C BC ####[facility] Jtakcroxid[address] [place], [place] [address]DrKianna Airam Deuce MCH (RBC) [Entitic mass] 29.3 pg Normal 26.7-34.0 [facility] Comment on above: Performed By: #### C BC ####[facility] Moktejdwxn265[address] [place], [place] [address]Dr. Airam Deuce MCHC (RBC) [Mass/Vol] 31.8 g/dL Normal 29.9-35.2 [facility] Comment on above: Performed By: #### C BC ####[facility] Awgwlayenr931[address] [place], [place] [address]DrKianna Selenaneil Tripathi MCV (RBC) [Entitic vol] 92.1 fL Normal 81.0-99.0 [facility] Comment on above: Performed By: #### C BC ####[facility] Zddzagxwxl28[address] [place], [place] [address]DrKianna Tripathi MONO # 0.6 103/ul Normal 0.3-0.8 [facility] Comment on above: Performed By: #### C BC ####[facility] Ghalgaiuic7[address] [place], [place] [id number] Tripathi Monocytes/100 WBC (Bld) 10.0 % Normal 1.7-12.0 [facility] Comment on above: Performed By: #### C BC ####[facility] [address]ploodgjj[address] [place] [address]Dr. Airam Tripathi NEUT # 3.7 103/ul Normal 1.4-6.5 [facility] Comment on above: Performed By: #### C BC ####[facility] Ggamujvcoe27[address] [place] [address]Dr. Airam Tripathi Neutrophils/100 WBC (Bld) 60.6 % Normal 43.0-75.0 [facility] Comment on above: Performed By: #### C BC ####[facility] Umbcjcmybx039[address] [place] [address]Dr. Airam Tripathi Platelet mean volume (Bld) [Entitic vol] 9.1 fL Critically low 9.5-13.5 [facility] Comment on above: Performed By: #### C BC ####[facility] Jfsamxeryz1605 [place] [address]Dr. Airam Tripathi PLT 242 103/ul Normal 150-450 [facility] Comment on above: Performed By: #### C BC ####[facility] Aurwgiwqsp5530 [place] [address]Dr. Airam Tripathi RBC 3.04 106/ul Critically low 4.20-5.40 [facility] Comment on above: Performed By: #### C BC ####[facility] Psoueuddlh7370 [place] [address]Dr. Airam Tripathi WBC 6.1 103/ul Normal 4.0-11.0 [facility] Comment on above: Performed By: #### C BC ####[facility] Vonqttwtda[address] [place] [address]Dr. Airam Tripathi CT STROKE HEAD WOon 11-17-19 CT STROKE HEAD WO Normal [facility] PROF CHEM 8 (BAS METB)on Anion gap [Moles/Vol] 9.8 mmol/L Normal [facility] Comment on above: Performed By: #### B MP, HSTROPN ####[facility] Lqnzqkppzl6[address] [place] [address]Dr. Airam Tripathi Calcium [Mass/Vol] 8.4 mg/dL Critically low 8.5-10.1 [facility] Comment on above: Performed By: #### B GERTRUDE, HSTROPN ####[facility] Nfheofmvtw1244 [place] [address]Dr. Airam Tripathi Chloride [Moles/Vol] 99 mmol/L Normal 98-107 [facility] Comment on above: Performed By: #### B GERTRUDE, HSTROPN ####[facility] Ilxhfhcysg4441 [place] [address]Dr. Airam Tripathi CO2 [Moles/Vol] 28.3 mmol/L Normal 21.0-32.0 [facility] Comment on above: Performed By: #### B GERTRUDE, HSTROPN ####[facility] Fateycvpqh[address] [place], [place] [address]Dr. Airam Tripathi Creatinine [Mass/Vol] 1.40 mg/dL Critically high 0.55-1.02 [facility] Comment on above: Performed By: #### B GERTRUDE, HSTROPN ####[facility] Yhgzlngqak9[address] [place], [place] [address]Dr. Airam Tripathi EGFR-AF ARGENTINE 46 mL/min/1.73m2 Critically low >=60 [facility] Comment on above: Performed By: #### B GERTRUDE, HSTROPN ####[facility] Koohqedzio[address] [place], [place] [address]Dr. Airam Tripathi EGFR-NON AF ARGENTINE 38 mL/min/1.73m2 Critically low >=60 [facility] Comment on above: Performed By: #### B GERTRUDE, HSTROPN ####[facility] Xcoshcveux015[address] [place], [place] [address]Dr. Airam Tripathi Glucose [Mass/Vol] 88 mg/dL Normal 74-106 [facility] Comment on above: Performed By: #### B GERTRUDE, HSTROPN ####[facility] Htdrmsmtke6714[address] [place], [place] [address]Dr. Airam Tripathi Potassium [Moles/Vol] 5.1 mmol/L Normal 3.5-5.1 [facility] Comment on above: Performed By: #### B GERTRUDE, HSTROPN ####[facility] Ltancyhwli7032 [place] [address]Dr. Airam Tripathi Sodium [Moles/Vol] 132 mmol/L Critically low 136-145 [facility] Comment on above: Performed By: #### B GERTRUDE, HSTROPN ####[facility] Riqvactijs7038 [place] [address]Dr. Selneaneil Tripathi Urea nitrogen [Mass/Vol] 56.0 mg/dL Critically high 7.0-18.0 [facility] Comment on above: Performed By: #### B GERTRUDE, HSTROPN ####[facility] Vmazchskuz9[address] [place] [address]Dr. Airam Tripathi Urea nitrogen/Creatinine [Mass ratio] 40.0 mg/mg Normal [facility] Comment on above: Performed By: #### B GERTRUDE HSTROPN ####[facility] Ecirhsgoui25[address] [place], [place] [address]Dr. Airam Deuce TROPONIN, HIGH SENSITIVITYon 11-16-2022 HSTROP 9.9 pg/mL Normal 4.0-51.3 [facility] Comment on above: Result Comment: CUT- OFF POINTS HAVE BEEN ESTABLISHED BASED ON THE FOURTH UNIVERSAL DEFINITIONS OF MYOCARDIALINFARCTION. THE UPPER REFERENCE LIMIT (URL) OF TROPONIN, DEFINED THE 99TH PERCENTILE OFcTnI DISTRIBUTION IN A REFERENCE POPULATION, HAS BEEN CONFIRMED THE DECISION THRESHOLDFOR [place] DIAGNOSIS. Performed By: #### B GERTRUDE, HSTROPN ####[facility] Zhbpfgwksj03[address] [place], [place] [address]Dr. Airam Deuce XR CHEST 1 Von 11-16-2022 XR CHEST 1 V Normal [facility] CBC AUTO DIFFon 11-11-2022 BASO # 0.0 103/ul Normal 0.0-0.1 [facility] Comment on above: Performed By: #### C BC ####[facility] Rmjxvufrdx[address] [place], [place] [address]Dr. Selenaneil Tripathi Basophils/100 WBC (Bld) 0.4 % Normal 0.2-2.0 [facility] Comment on above: Performed By: #### C BC ####[facility] Pmlcxzftnt9[address] [place], [place] [address]Dr. Airam Tripathi EO # 0.4 103/ul Normal 0.0-0.7 [facility] Comment on above: Performed By: #### C BC ####[facility] Riosntpbot689[address] [place], [place] [address]Dr. Airam Tripathi Eosinophils/100 WBC (Bld) 4.6 % Normal 0.9-7.0 [facility] Comment on above: Performed By: #### C BC ####[facility] Nimcpsbqpm0110[address] [place], [place] [address]Dr. Airam Tripathi Erythrocyte distribution width (RBC) [Ratio] 15.8 % Critically high 11.0-15.0 [facility] Comment on above: Performed By: #### C BC ####[facility] Kkdlcxkzkl188[address] [place], [place] [address]Dr. Airam Tripathi Hematocrit (Bld) [Volume fraction] 30.3 % Critically low 36.0-48.0 [facility] Comment on above: Performed By: #### C BC ####[facility] Sjycywseda938[address] [place], [place] [address]Dr. Airam Tripathi Hemoglobin (Bld) [Mass/Vol] 9.3 g/dL Critically low 12.0-16.0 [facility] Comment on above: Performed By: #### C BC ####[facility] Jggikyjqok10[address] [place], [place] [address]Dr. Airam Tripathi IG # 0.03 10e3/ul Normal 0.00-0.03 [facility] Comment on above: Performed By: #### C BC ####[facility] Irmhaopqkz[address] [place], [place] [address]Dr. Airam Tripathi IG % 0.4 % Normal 0.0-0.5 [facility] Comment on above: Performed By: #### C BC ####[facility] Sdzpnkllhz4523[address] [place], [place] [address]DrKianna Tripathi LYMPH # 2.0 103/ul Normal 1.2-3.8 [facility] Comment on above: Performed By: #### C BC ####[facility] Dwlunpouza0625 [place] [address]DrKianna Tripathi Lymphocytes/100 WBC (Bld) 24.5 % Normal 20.5-60.0 [facility] Comment on above: Performed By: #### C BC ####[facility] Ucmkmlsird[address] [place], [place] [address]DrKianna Tripathi MANUAL DIFF REQ NO Normal [facility] Comment on above: Performed By: #### C BC ####[facility] Jjjrsftigf038[address] [place], [place] [address]DrKianna Tripathi MCH (RBC) [Entitic mass] 28.9 pg Normal 26.7-34.0 [facility] Comment on above: Performed By: #### C BC ####[facility] Geujhmdchu086[address] [place], [place] [address]Dr. Airam Tripathi MCHC (RBC) [Mass/Vol] 30.7 g/dL Normal 29.9-35.2 [facility] Comment on above: Performed By: #### C BC ####[facility] Zgjgzoceuk[address] [place], [place] [address]DrKianna Tripathi MCV (RBC) [Entitic vol] 94.1 fL Normal 81.0-99.0 [facility] Comment on above: Performed By: #### C BC ####[facility] Lzeoefurmd[address] [place], [place] [address]DrKianna Tripathi MONO # 0.7 103/ul Normal 0.3-0.8 [facility] Comment on above: Performed By: #### C BC ####[facility] Gsnzjluzhd[address] [place], [place] [address]DrKianna Tripathi Monocytes/100 WBC (Bld) 8.3 % Normal 1.7-12.0 [facility] Comment on above: Performed By: #### C BC ####[facility] Lmndyrsagu0575[address] [place], [place] [address]DrKianna Tripathi NEUT # 5.0 103/ul Normal 1.4-6.5 [facility] Comment on above: Performed By: #### C BC ####[facility] Uvjicljhvo4116 [place] [address]DrKianna Tripathi Neutrophils/100 WBC (Bld) 61.8 % Normal 43.0-75.0 [facility] Comment on above: Performed By: #### C BC ####[facility] Hxqbijhgee3818 [place] [address]DrKianna Tripathi Platelet mean volume (Bld) [Entitic vol] 9.4 fL Critically low 9.5-13.5 [facility] Comment on above: Performed By: #### C BC ####[facility] Vjhwkzqqka[address] [place], [place] [address]DrKianna Tripathi PLT 270 103/ul Normal 150-450 [facility] Comment on above: Performed By: #### C BC ####[facility] Ambdhqcvyo330[address] [place], [place] [address]DrKianna Tripathi RBC 3.22 106/ul Critically low 4.20-5.40 [facility] Comment on above: Performed By: #### C BC ####[facility] Sjztuqwztk[address] [place], [place] [address]DrKianna Tripathi WBC 8.1 103/ul Normal 4.0-11.0 [facility] Comment on above: Performed By: #### C BC ####[facility] Lofixtvktr138[address] [place], [place] [address]DrKianna Tripathi PROF 14(COMP METB)on 023 Albumin [Mass/Vol] 3.2 g/dL Critically low 3.4-5.0 [facility] Comment on above: Performed By: #### C MP ####[facility] Kmetrbpfdq50[address] [place], [place] [address]DrKianna Tripathi Albumin/Globulin [Mass ratio] 1.0 {ratio} Normal [facility] Comment on above: Performed By: #### C MP ####[facility] Gyrxotwbdr[address] [place], [place] [address]DrKianna Tripathi ALP [Catalytic activity/Vol] 108 U/L Normal 46-116 [facility] Comment on above: Performed By: #### C MP ####[facility] Rrzbedipcc8892 [place] [address]Dr. Airam Tripathi ALT [Catalytic activity/Vol] 30 U/L Normal 14-59 [facility] Comment on above: Performed By: #### C MP ####[facility] Qbrqrenbdj960[address] [place], [place] [address]Dr. Airam Tripathi Anion gap [Moles/Vol] 12.8 mmol/L Normal [facility] Comment on above: Performed By: #### C MP ####[facility] Entqvdbqdk7517[address] [place], [place] [address]Dr. Airam Tripathi AST [Catalytic activity/Vol] 33 U/L Normal 15-37 [facility] Comment on above: Performed By: #### C MP ####[facility] Ailkpyyahz068[address] [place], [place] [address]Dr. Airam Tripathi Bilirubin [Mass/Vol] 0.2 mg/dL Normal 0.2-1.0 [facility] Comment on above: Performed By: #### C MP ####[facility] Zimdvztnxk7[address] [place], [place] [address]Dr. Airam Tripathi Calcium [Mass/Vol] 8.3 mg/dL Critically low 8.5-10.1 [facility] Comment on above: Performed By: #### C MP ####[facility] Mkivnpoltv437[address] [place], [place] [address]Dr. Airam Tripathi Chloride [Moles/Vol] 99 mmol/L Normal 98-107 [facility] Comment on above: Performed By: #### C MP ####[facility] Tywiorlfsn2315[address] [place], [place] [address]Dr. Airam Tripathi CO2 [Moles/Vol] 27.6 mmol/L Normal 21.0-32.0 [facility] Comment on above: Performed By: #### C MP ####[facility] Pndoqeuyiy[address] [place], [place] [address]Dr. Airam Tripathi Creatinine [Mass/Vol] 2.01 mg/dL Critically high 0.55-1.02 [facility] Comment on above: Performed By: #### C MP ####[facility] Ptcztrnryl7629 [place] [address]Dr. Airam Tripathi EGFR-AF ARGENTINE 31 mL/min/1.73m2 Critically low >=60 [facility] Comment on above: Performed By: #### C MP ####[facility] Cqatsqcwpd9438 [place] [address]Dr. Airam Tripathi EGFR-NON AF ARGENTINE 25 mL/min/1.73m2 Critically low >=60 [facility] Comment on above: Performed By: #### C MP ####[facility] Kpkirclbqb939[address] [place], [place] [address]Dr. Airam Tripathi Globulin (S) [Mass/Vol] 3.2 g/dL Normal [facility] Comment on above: Performed By: #### C MP ####[facility] Munlxcuvcx509[address] [place], [place] [address]Dr. Airam Tripathi Glucose [Mass/Vol] 158 mg/dL Critically high 74-106 [facility] Comment on above: Performed By: #### C MP ####[facility] Lpgkqhrfny80[address] [place], [place] [address]Dr. Airam Tripathi Potassium [Moles/Vol] 5.4 mmol/L Critically high 3.5-5.1 [facility] Comment on above: Performed By: #### C MP ####[facility] Jmgzhajtky[address] [place], [place] [address]Dr. Airam Tripathi Protein [Mass/Vol] 6.4 g/dL Normal 6.4-8.2 [facility] Comment on above: Performed By: #### C MP ####[facility] Yzgaxaznmn7[address] [place], [place] [address]Dr. Airam Tripathi Sodium [Moles/Vol] 134 mmol/L Critically low 136-145 [facility] Comment on above: Performed By: #### C MP ####[facility] Piigdwophx[address] [place], [place] [address]Dr. Airam Tripathi Urea nitrogen [Mass/Vol] 52.0 mg/dL Critically high 7.0-18.0 [facility] Comment on above: Performed By: #### C MP ####[facility] Vtybioeunu6270 [place], [place] [address]IdKianna Tripathi Urea nitrogen/Creatinine [Mass ratio] 25.9 mg/mg Normal [facility] Comment on above: Performed By: #### C MP ####[facility] Gmnpervhxr5427 [place], [place] [address]Jx. Airam Tripathi HPon 11-07-2022 [facility] Cardiology - [facility] Subjective Mabel Moser is a 62 y.o. year old female patient being seen for 2 week follow up per Sofie Bernard CNP. She says since she was last seen on 10/28, Dr. Santana increased her Entresto to 97-103mg bid, metoprolol to 50mg TID, and hydralazine to 100mg TID. Says she was in [facility] ED again last Monday with a BP of 214/127. Patient Active Problem List Diagnosis Abnormal weight loss Acute sinusitis Amnesia Anxiety Other specified anxiety disorders Mitral valve regurgitation Pulmonic valve regurgitation Aortic valve regurgitation Arthritis of right knee Benign essential hypertension Bilateral hearing loss Chronic obstructive pulmonary disease (CMS/HCC) CKD (chronic kidney disease) stage 3, GFR 30-59 ml/min ([facility]/HCC) Closed fracture of trochanter of femur ([facility]/HCC) Clostridium difficile colitis Coronary arteriosclerosis Diffuse thyroid [...] In the past she was admitted to [facility] in 2019 with fluid overload and [...] distension. Pal (more content not included)... Normal [facility] Office Visiton 11-07-2022 Follow-up visit [id number] Loren Moser 1960 F Date Provider Department Center 11/07/2022 BENJIE LERMA [facility] No family history on file Level of Service:27852 [place] OFFICE/OUTPATIENT ESTABLISHED MOD MDM 30-39 MIN Normal [facility] OSMOLALITYon 11-06-2022 Osmolality [Osmolality] 261 mosm/kg Critically low 275-295 [facility] Comment on above: Performed By: #### O SMO ####[facility] Xypswgazrr75[address] [place] [address]Dr. Airam Tripathi XR HIPS GUMARO 3_4V WO PELVISon 11-04-2022 XR HIPS GUMARO 3_4V WO PELVIS Normal [facility] XR KNEE LT 4V or >on 023 XR KNEE LT 4V or > Normal [facility] BNPon 11-03-2022 Natriuretic peptide B (Bld) [Mass/Vol] 1168.0 pg/mL Critically high <=900.0 [facility] Comment on above: Performed By: #### B PLATE GLASS INSTALLER HELPER, BMP ####[facility] Liefqfjmvi4[address] [place] [address]Dr. Airam Tripathi CBC AUTO DIFFon 11-03-2022 BASO # 0.0 103/ul Normal 0.0-0.1 [facility] Comment on above: Performed By: #### C BC ####[facility] Scystfyddw7737 [place] [address]Dr. Airam Tripathi Basophils/100 WBC (Bld) 0.3 % Normal 0.2-2.0 [facility] Comment on above: Performed By: #### C BC ####[facility] Jqstplwcrk5508 [place] [address]Dr. Airam Tripathi EO # 0.2 103/ul Normal 0.0-0.7 [facility] Comment on above: Performed By: #### C BC ####[facility] Jevcjbwjmy84[address] [place] [address]Dr. Airam Tripathi Eosinophils/100 WBC (Bld) 1.9 % Normal 0.9-7.0 [facility] Comment on above: Performed By: #### C BC ####[facility] Yoejhpxcck1856 [place] [address]Dr. Airam Tripathi Erythrocyte distribution width (RBC) [Ratio] 15.2 % Critically high 11.0-15.0 [facility] Comment on above: Performed By: #### C BC ####[facility] Gjoclfzhip35[address] [place] [address]Dr. Airam Tripathi Hematocrit (Bld) [Volume fraction] 34.3 % Critically low 36.0-48.0 [facility] Comment on above: Performed By: #### C BC ####[facility] Vbqzcxowpl9505 [place] [address]Dr. Airam Tripathi Hemoglobin (Bld) [Mass/Vol] 11.0 g/dL Critically low 12.0-16.0 [facility] Comment on above: Performed By: #### C BC ####[facility] Hhmxvupole86[address] [place] [address]Dr. Airam Tripathi IG # 0.06 10e3/ul Critically high 0.00-0.03 [facility] Comment on above: Performed By: #### C BC ####[facility] Fhrblnumdl4034 [place] [address]Dr. Airam Tripathi IG % 0.5 % Normal 0.0-0.5 [facility] Comment on above: Performed By: #### C BC ####[facility] Tiydbslgwh20[address] [place] [id number]. Airam Deuce LYMPH # 2.3 103/ul Normal 1.2-3.8 [facility] Comment on above: Performed By: #### C BC ####[facility] Vkhfemqfgp2162 [place] [id number]. Airam Deuce Lymphocytes/100 WBC (Bld) 20.4 % Critically low 20.5-60.0 [facility] Comment on above: Performed By: #### C BC ####[facility] Tykjecfpia37[address] [place] [address]Dr. Airam Deuce MANUAL DIFF REQ NO Normal [facility] Comment on above: Performed By: #### C BC ####[facility] Pihqyianyd6[address] [place] [address]Dr. Airam Deuce MCH (RBC) [Entitic mass] 28.7 pg Normal 26.7-34.0 [facility] Comment on above: Performed By: #### C BC ####[facility] Hvkyvhxizl1519 [place] [address]Dr. Airam Tripathi MCHC (RBC) [Mass/Vol] 32.1 g/dL Normal 29.9-35.2 [facility] Comment on above: Performed By: #### C BC ####[facility] Kilxvejeaz0808 [place] [address]Dr. Airam Deuce MCV (RBC) [Entitic vol] 89.6 fL Normal 81.0-99.0 [facility] Comment on above: Performed By: #### C BC ####[facility] Tbiaihuscm7620 [place] [address]Dr. Airam Deuce MONO # 0.9 103/ul Critically high 0.3-0.8 [facility] Comment on above: Performed By: #### C BC ####[facility] Tcapuzivsb2702 [place] [address]Dr. Airam Deuce Monocytes/100 WBC (Bld) 8.3 % Normal 1.7-12.0 [facility] Comment on above: Performed By: #### C BC ####[facility] Smykfoswst8642 [place] [id number]. Airam Tripathi NEUT # 7.8 103/ul Critically high 1.4-6.5 [facility] Comment on above: Performed By: #### C BC ####[facility] Wgojbqrgeo9452 [place] [phone]. Airam Tripathi Neutrophils/100 WBC (Bld) 68.6 % Normal 43.0-75.0 [facility] Comment on above: Performed By: #### C BC ####[facility] Ieysiftfti8974 [place] [address]Dr. Airam Tripathi Platelet mean volume (Bld) [Entitic vol] 8.9 fL Critically low 9.5-13.5 [facility] Comment on above: Performed By: #### C BC ####[facility] Nihzxkdbbc4732 [place] [address]Dr. Airam Tripathi PLT 323 103/ul Normal 150-450 [facility] Comment on above: Performed By: #### C BC ####[facility] [address]fsxms[address] [place], [place] [id number]. Airam Tripathi RBC 3.83 106/ul Critically low 4.20-5.40 [facility] Comment on above: Performed By: #### C BC ####[facility] Wfancexxpg2498 [place] [address]Dr. Airam Tripathi WBC 11.4 103/ul Critically high 4.0-11.0 [facility] Comment on above: Performed By: #### C BC ####[facility] Qqjhakschj4342 [place] [address]Dr. Airam Tripathi BASO # 0.0 103/ul Normal 0.0-0.1 [facility] Comment on above: Performed By: #### C BC ####[facility] [address]wdc[address] [place], [place] [id number]. Airam Tripathi Basophils/100 WBC (Bld) 0.2 % Normal 0.2-2.0 [facility] Comment on above: Performed By: #### C BC ####[facility] Lbwxduhelv[address] [place], [place] [address]Dr. Airam Tripathi EO # 0.1 103/ul Normal 0.0-0.7 [facility] Comment on above: Performed By: #### C BC ####[facility] Ahhrhbdahp1245 [place] [address]Dr. Airam Tripathi Eosinophils/100 WBC (Bld) 0.7 % Critically low 0.9-7.0 [facility] Comment on above: Performed By: #### C BC ####[facility] Mickssgcrj239[address] [place], [place] [address]Dr. Airam Tripathi Erythrocyte distribution width (RBC) [Ratio] 15.4 % Critically high 11.0-15.0 [facility] Comment on above: Performed By: #### C BC ####[facility] Ovftukrkxl[address] [place], [place] [address]Dr. Selenaneil Tripathi Hematocrit (Bld) [Volume fraction] 33.6 % Critically low 36.0-48.0 [facility] Comment on above: Performed By: #### C BC ####[facility] Oxahbxxhry[address] [place], [place] [address]Dr. Airam Tripathi Hemoglobin (Bld) [Mass/Vol] 10.9 g/dL Critically low 12.0-16.0 [facility] Comment on above: Performed By: #### C BC ####[facility] Odnncvcggv22[address] [place], [place] [address]Dr. Airam Tripathi IG # 0.04 10e3/ul Critically high 0.00-0.03 [facility] Comment on above: Performed By: #### C BC ####[facility] Tahjfuhfeb[address] [place], [place] [address]Dr. Selenaneil Tripathi IG % 0.5 % Normal 0.0-0.5 [facility] Comment on above: Performed By: #### C BC ####[facility] Qnwaphynap[address] [place], [place] [address]Dr. Airam Tripathi LYMPH # 1.1 103/ul Critically low 1.2-3.8 [facility] Comment on above: Performed By: #### C BC ####[facility] Qnfgxqelut6779 [place] [address]Dr. Airam Tripathi Lymphocytes/100 WBC (Bld) 13.3 % Critically low 20.5-60.0 [facility] Comment on above: Performed By: #### C BC ####[facility] Yvzzrxidzs0529 [place] [address]Dr. Airam Deuce MANUAL DIFF REQ NO Normal [facility] Comment on above: Performed By: #### C BC ####[facility] Kethaujjjh2471 [place] [address]Dr. Airam Deuce MCH (RBC) [Entitic mass] 29.1 pg Normal 26.7-34.0 [facility] Comment on above: Performed By: #### C BC ####[facility] Omlodhdntk[address] [place], [place] [address]Dr. Airam Deuce MCHC (RBC) [Mass/Vol] 32.4 g/dL Normal 29.9-35.2 [facility] Comment on above: Performed By: #### C BC ####[facility] Mywczdttdx718[address] [place], [place] [address]Dr. Airam Deuce MCV (RBC) [Entitic vol] 89.6 fL Normal 81.0-99.0 [facility] Comment on above: Performed By: #### C BC ####[facility] Ufwcghicst[address] [place], [place] [address]Dr. Airam Deuce MONO # 0.5 103/ul Normal 0.3-0.8 [facility] Comment on above: Performed By: #### C BC ####[facility] Pxdkupawrt509[address] [place], [place] [address]Dr. Selenaneil Tripathi Monocytes/100 WBC (Bld) 6.4 % Normal 1.7-12.0 [facility] Comment on above: Performed By: #### C BC ####[facility] Jtlnnmpffi274[address] [place], [place] [address]Dr. Airam Tripathi NEUT # 6.5 103/ul Normal 1.4-6.5 [facility] Comment on above: Performed By: #### C BC ####[facility] Uyrraglhyt4326 [place] [address]Dr. Airam Tripathi Neutrophils/100 WBC (Bld) 78.9 % Critically high 43.0-75.0 [facility] Comment on above: Performed By: #### C BC ####[facility] Jeddujptah0452 [place] [address]Dr. Airam Tripathi Platelet mean volume (Bld) [Entitic vol] 9.4 fL Critically low 9.5-13.5 [facility] Comment on above: Performed By: #### C BC ####[facility] Iqrfhmpmuc7829 [place] [address]Dr. Airam Tripathi PLT 314 103/ul Normal 150-450 [facility] Comment on above: Performed By: #### C BC ####[facility] Hxrqsqzpxj4945 [place] [address]Dr. Airam Tripathi RBC 3.75 106/ul Critically low 4.20-5.40 [facility] Comment on above: Performed By: #### C BC ####[facility] Lnfapxkvzf527[address] [place], [place] [address]Dr. Airam Tripathi WBC 8.3 103/ul Normal 4.0-11.0 [facility] Comment on above: Performed By: #### C BC ####[facility] Vhtdyjczle[address] [place], [place] [address]Dr. Airam Tripathi CT HEAD WO CONon 11-03-2022 CT HEAD WO CON Normal [facility] PROF 14(COMP METB)on 023 Albumin [Mass/Vol] 3.2 g/dL Critically low 3.4-5.0 [facility] Comment on above: Performed By: #### C MP ####[facility] Xccyvfykfb780[address] [place], [place] [address]Dr. Airam Tripathi Albumin/Globulin [Mass ratio] 0.9 {ratio} Normal [facility] Comment on above: Performed By: #### C MP ####[facility] Nyikfzgijc[address] [place], [place] [address]Dr. Airam Deuce ALP [Catalytic activity/Vol] 109 U/L Normal 46-116 [facility] Comment on above: Performed By: #### C MP ####[facility] Ejjjzvcbke6163 [place] [id number]. Airam Tripathi ALT [Catalytic activity/Vol] 25 U/L Normal 14-59 [facility] Comment on above: Performed By: #### C MP ####[facility] Opqhtfdrio0580 [place] [id number]. Airam Tripathi Anion gap [Moles/Vol] 10.9 mmol/L Normal [facility] Comment on above: Performed By: #### C MP ####[facility] Gwtizrhlhf4474 [place] [address]Dr. Airam Tripathi AST [Catalytic activity/Vol] 24 U/L Normal 15-37 [facility] Comment on above: Performed By: #### C MP ####[facility] Ctfokkimpo[address] [place], [place] [address]Dr. Airam Tripathi Bilirubin [Mass/Vol] 0.3 mg/dL Normal 0.2-1.0 [facility] Comment on above: Performed By: #### C MP ####[facility] Ykhkmohwpt674[address] [place], [place] [address]Dr. Selenaneil Tripathi Calcium [Mass/Vol] 8.6 mg/dL Normal 8.5-10.1 [facility] Comment on above: Performed By: #### C MP ####[facility] Cdlfythjqp[address] [place], [place] [address]Dr. Airam Tripathi Chloride [Moles/Vol] 95 mmol/L Critically low 98-107 [facility] Comment on above: Performed By: #### C MP ####[facility] Tuwaeucpcj[address] [place], [place] [address]Dr. Selenaneil Tripathi CO2 [Moles/Vol] 27.8 mmol/L Normal 21.0-32.0 [facility] Comment on above: Performed By: #### C MP ####[facility] Hegueowgnm658[address] [place], [place] [address]Dr. Airam Tripathi Creatinine [Mass/Vol] 1.07 mg/dL Critically high 0.55-1.02 [facility] Comment on above: Performed By: #### C MP ####[facility] Mzalxzdbhb7466 [place] [phone]. Airam Tripathi EGFR-AF ARGENTINE >60 Normal >=60 [facility] Comment on above: Performed By: #### C MP ####[facility] Oxnryetvxp1360 [place] [phone]. Airam Tripathi EGFR-NON AF ARGENTINE 52 mL/min/1.73m2 Critically low >=60 [facility] Comment on above: Performed By: #### C MP ####[facility] Chvpkqwnui9860 [place] [phone]. Airam Tripathi Globulin (S) [Mass/Vol] 3.5 g/dL Normal [facility] Comment on above: Performed By: #### C MP ####[facility] Ysgcikpcbw0026 [place] [phone]. Airam Tripathi Glucose [Mass/Vol] 86 mg/dL Normal 74-106 [facility] Comment on above: Performed By: #### C MP ####[facility] Vwphkvepot2549 [place] [id number]. Airam Tripathi Potassium [Moles/Vol] 4.7 mmol/L Normal 3.5-5.1 [facility] Comment on above: Performed By: #### C MP ####[facility] Hdfbzustyf0739 [place] [phone]. Airam Tripathi Protein [Mass/Vol] 6.7 g/dL Normal 6.4-8.2 [facility] Comment on above: Performed By: #### C MP ####[facility] Vbyfpbpmec0585 [place] [phone]. Airam Tripathi Sodium [Moles/Vol] 129 mmol/L Critically low 136-145 [facility] Comment on above: Performed By: #### C MP ####[facility] Bluczqlpjm9179 [place] [phone]. Airam Tripathi Urea nitrogen [Mass/Vol] 19.0 mg/dL Critically high 7.0-18.0 [facility] Comment on above: Performed By: #### C MP ####[facility] Vvilwizqcf9494 [place] [phone]. Airam Tripathi Urea nitrogen/Creatinine [Mass ratio] 17.8 mg/mg Normal [facility] Comment on above: Performed By: #### C MP ####[facility] Pogwfagtxg0999 [place] [address]Dr. Airam Tripathi PROF CHEM 8 (BAS METB)on Anion gap [Moles/Vol] 9.0 mmol/L Normal [facility] Comment on above: Performed By: #### B PLATE GLASS INSTALLER HELPER, BMP ####[facility] Bvdumyoigx2942 [place] [address]Dr. Airam Tripathi Calcium [Mass/Vol] 8.5 mg/dL Normal 8.5-10.1 [facility] Comment on above: Performed By: #### B PLATE GLASS INSTALLER HELPER, BMP ####[facility] Siixvfurmm[address] [place], [place] [address]Dr. Airam Tripathi Chloride [Moles/Vol] 93 mmol/L Critically low 98-107 [facility] Comment on above: Performed By: #### B PLATE GLASS INSTALLER HELPER, BMP ####[facility] Lhgrusvrep489[address] [place], [place] [address]Dr. Airam Tripathi CO2 [Moles/Vol] 28.1 mmol/L Normal 21.0-32.0 [facility] Comment on above: Performed By: #### B PLATE GLASS INSTALLER HELPER, BMP ####[facility] Rrygljftdo[address] [place], [place] [address]Dr. Airam Tripathi Creatinine [Mass/Vol] 1.17 mg/dL Critically high 0.55-1.02 [facility] Comment on above: Performed By: #### B PLATE GLASS INSTALLER HELPER, BMP ####[facility] Tzglxdueha7422 [place] [address]Dr. Airam Tripathi EGFR-AF ARGENTINE 57 mL/min/1.73m2 Critically low >=60 [facility] Comment on above: Performed By: #### B PLATE GLASS INSTALLER HELPER, BMP ####[facility] [address]sxrskjujw[address] [place], [place] [id number]. Airam Tripathi EGFR-NON AF ARGENTINE 47 mL/min/1.73m2 Critically low >=60 [facility] Comment on above: Performed By: #### B PLATE GLASS INSTALLER HELPER, BMP ####[facility] Mwkfhtwqts6352 [place] [address]Dr. Airam Trpiathi Glucose [Mass/Vol] 107 mg/dL Critically high 74-106 [facility] Comment on above: Performed By: #### B PLATE GLASS INSTALLER HELPER, BMP ####[facility] Webnbtnnoh8824 [place] [address]Dr. Airam Tripathi Potassium [Moles/Vol] 4.1 mmol/L Normal 3.5-5.1 [facility] Comment on above: Performed By: #### B PLATE GLASS INSTALLER HELPER, BMP ####[facility] Kuqvcvgeno4759 [place] [address]Dr. Airam Tripathi Sodium [Moles/Vol] 126 mmol/L Critically low 136-145 [facility] Comment on above: Performed By: #### B PLATE GLASS INSTALLER HELPER, BMP ####[facility] Nrezqscaqe[address] [place], [place] [address]Dr. Airam Tripathi Urea nitrogen [Mass/Vol] 20.0 mg/dL Critically high 7.0-18.0 [facility] Comment on above: Performed By: #### B PLATE GLASS INSTALLER HELPER, BMP ####[facility] Mqzwagvoiv[address] [place], [place] [address]Dr. Airam Tripathi Urea nitrogen/Creatinine [Mass ratio] 17.1 mg/mg Normal [facility] Comment on above: Performed By: #### B PLATE GLASS INSTALLER HELPER, BMP ####[facility] Yoxfqdznnd[address] [place], [place] [address]Dr. Airam Tripathi XR CHEST 1 Von 11-03-2022 XR CHEST 1 V Normal [facility] Activated partial thrombopla stin time (aPTT) in platelet poor plasma by coagulation aOrdered By: Favian Helm on 10-28-2022 aPTT Coag (PPP) [Time] 31.7 s 25.1-36.5 [facility] Alanine aminotransferase [En zymatic activity/volume] in Serum or PlasmaOrdered By: Favian Helm on 10-28-2022 ALT [Catalytic activity/Vol] 14 U/L 7-52 [facility] Albumin [Mass/volume] in Ser um or Plasma by Bromocresol green (BCG) dye binding methoOrdered By: Favian Helm on 10-28-2022 Albumin BCG dye [Mass/Vol] 3.6 g/dL 3.5-5.7 [facility] Alkaline phosphatase [Enzyma tic activity/volume] in Serum or PlasmaOrdered By: Favian Helm on 10-28-2022 ALP [Catalytic activity/Vol] 84 U/L 34-104 [facility] Aspartate aminotransferase [ Enzymatic activity/volume] in Serum or PlasmaOrdered By: Favian Helm on 10-28-2022 AST [Catalytic activity/Vol] 21 U/L 13-39 [facility] B-Type Natriuretic Peptideon 10-28-2022 Natriuretic peptide B (Bld) [Mass/Vol] 551.0 pg/mL High 5-100 [facility] Comment on above: Result Comment: PERF ORMED BY: [place] [address] PATHOLOGIST [employer] TANNER GAVIN M.D. Performed By: #### M G, [id number], RETIC, FE and TIBC, JOSE, BMP #### [facility] [address] Basophils Auto (Bld) [#/Vol] Ordered By: Favian Helm on 10-28-2022 Basophils (Bld) [#/Vol] 0.0 10*3/uL 0.0-0.2 [facility] Basophils/100 WBC Auto (Bld) Ordered By: Favian Helm on 10-28-2022 Basophils/100 WBC (Bld) 0.4 % . [facility] Bilirubin.total [Mass/volume ] in Serum or PlasmaOrdered By: Favian Helm on 10-28-2022 Bilirubin [Mass/Vol] 0.3 mg/dL 0.3-1.[address] [facility] [address] head/brain wo conon 10-28 CT head/brain wo con [facility] Main [place] [address] [place] [address] CT Scan Report Signed Patient: Mabel Moser MR#: [id number] : 1960 Acct:[id number] Age/Sex: 62 / F ADM Date: 10/28/22 Loc: ER Room: Type: [facility] ER Attending Dr: Copies to: Favian [...] Baljinder Ball M.D.10/28/2022 7:46 PM Dictation Location: [place] [address] Transcribed By: [facility] 10/28/221945 Dictated By: Baljinder Ball DO 10/28/221934 Signed By: 10/28/221945 Normal [facility] Calcium [Mass/volume] in Ser um or PlasmaOrdered By: Favian Helm on 10-28-2022 Calcium [Mass/Vol] 8.2 mg/dL 8.6-10.3 [facility] Carbon dioxide, total [Moles /volume] in Serum or PlasmaOrdered By: Favian Helm on 10-28-2022 CO2 [Moles/Vol] 25.7 mmol/L 21.0-31.0 [facility] Chloride [Moles/volume] in S andrea or PlasmaOrdered By: Favian Helm on 10-28-2022 Chloride [Moles/Vol] 98 mmol/L 98-107 [facility] Complete Blood Count Auto Di ffon 10-28-2022 Basophils (Bld) [#/Vol] 0.0 10*3/uL Normal 0.0-0.2 [facility] Comment on above: Result Comment: PERF ORMED BY: [place] [address] PATHOLOGIST [employer] B[employer] TANNER GAVIN M.D. Performed By: #### M G, [id number], RETIC, FE and TIBC, JOSE, BMP #### [address] Basophils/100 WBC (Bld) 0.4 % Normal . [facility] Comment on above: Performed By: #### M G, [id number], RETIC, FE and TIBC, JOSE, BMP #### [address] Eosinophils (Bld) [#/Vol] 0.1 10*3/uL Normal 0.0-0.45 [facility] Comment on above: Performed By: #### M G, [id number], RETIC, FE and TIBC, JOSE, BMP #### [address] Eosinophils/100 WBC (Bld) 1.0 % Normal . [facility] Comment on above: Performed By: #### M G, [id number], RETIC, FE and TIBC, JOSE, BMP #### [address] Erythrocyte distribution width (RBC) [Ratio] 16.5 % High 11.9-15.3 [facility] Comment on above: Performed By: #### M G, [id number], RETIC, FE and TIBC, JOSE, BMP #### [address] Hematocrit (Bld) [Volume fraction] 29.9 % Low 34.0-46.4 [facility] Comment on above: Performed By: #### M G, [id number], RETIC, FE and TIBC, JOSE, BMP #### [address] Hemoglobin (Bld) [Mass/Vol] 9.6 g/dL Low 11.8-15.4 [facility] Comment on above: Performed By: #### M G, [id number], RETIC, FE and TIBC, JOSE, BMP #### [address] Lymphocytes (Bld) [#/Vol] 0.8 10*3/uL Low 1.00-4.8 [facility] Comment on above: Performed By: #### M G, [id number], RETIC, FE and TIBC, JOSE, BMP #### [address] Lymphocytes/100 WBC (Bld) 12.8 % Normal . [facility] Comment on above: Performed By: #### M G, [id number], RETIC, FE and TIBC, JOSE, BMP #### [address] MCH (RBC) [Entitic mass] 28.3 pg Normal 24.7-34.3 [facility] Comment on above: Performed By: #### M G, [id number], RETIC, FE and TIBC, JOSE, BMP #### [address] MCV (RBC) [Entitic vol] 88.3 fL Normal 80-100 [facility] Comment on above: Performed By: #### M G, [id number], RETIC, FE and TIBC, JOSE, BMP #### [address] Mean Corpuscular HGB Conc 32.0 g/dL Normal 32.0-35.0 [facility] Comment on above: Performed By: #### M G, [id number], RETIC, FE and TIBC, JOSE, BMP #### [address] Monocytes (Bld) [#/Vol] 0.2 10*3/uL Normal 0.0-0.8 [facility] Comment on above: Performed By: #### M G, [id number], RETIC, FE and TIBC, JOSE, BMP #### [address] Monocytes/100 WBC (Bld) 17.29 % Normal 0.00-20.00 [facility] Comment on above: Performed By: #### M G, [id number], RETIC, FE and TIBC, JOSE, BMP #### [address] Monocytes/100 WBC (Bld) 2.5 % Normal . [facility] Comment on above: Performed By: #### M G, [id number], RETIC, FE and TIBC, JOSE, BMP #### [address] Neutrophils (Bld) [#/Vol] 5.5 10*3/uL Normal 1.8-7.7 [facility] Comment on above: Performed By: #### M G, [id number], RETIC, FE and TIBC, JOSE, BMP #### [address] Neutrophils/100 WBC (Bld) 83.3 % Normal . [facility] Comment on above: Performed By: #### M G, [id number], RETIC, FE and TIBC, JOSE, BMP #### [address] NRBC% 0.0 /100{WBC} Normal 0-0.5 [facility] Comment on above: Performed By: #### M G, [id number], RETIC, FE and TIBC, JOSE, BMP #### [address] Platelet mean volume (Bld) [Entitic vol] 7.3 fL Normal 6.3-10.7 [facility] Comment on above: Performed By: #### M G, [id number], RETIC, FE and TIBC, JOSE, BMP #### [address] [place] [address] [place] Platelets (Bld) [#/Vol] 260 10*3/uL Normal 150-450 [facility] Comment on above: Performed By: #### M G, [id number], RETIC, FE and TIBC, JOSE, BMP #### [address] RBC (Bld) [#/Vol] 3.38 10*6/uL Low 3.60-5.00 [facility] Comment on above: Performed By: #### M G, [id number], RETIC, FE and TIBC, JOSE, BMP #### [address] WBC (Bld) [#/Vol] 6.6 10*3/uL Normal 3.8-11.6 [facility] Comment on above: Performed By: #### Nadya G, [id number], RETIC, FE and TIBC, JOSE, BMP #### [address] Comprehensive Metabolic Pane elena 10-28-2022 Albumin [Mass/Vol] 3.6 g/dL Normal 3.5-5.7 [facility] Comment on above: Performed By: #### M G, [id number], RETIC, FE and TIBC, JOSE, BMP #### [address] Albumin/Globulin [Mass ratio] 1.6 {ratio} Normal [facility] Comment on above: Performed By: #### M G, [id number], RETIC, FE and TIBC, JOSE, BMP #### [address] ALP [Catalytic activity/Vol] 84 U/L Normal 34-104 [facility] Comment on above: Performed By: #### M G, [id number], RETIC, FE and TIBC, JOSE, BMP #### [address] ALT [Catalytic activity/Vol] 14 U/L Normal 7-52 [facility] Comment on above: Performed By: #### M G, [id number], RETIC, FE and TIBC, JOSE, BMP #### [address] Anion gap [Moles/Vol] 10.0 mmol/L Normal 6.0-15.0 [facility] Comment on above: Performed By: #### M G, [id number], RETIC, FE and TIBC, JOSE, BMP #### [address] AST [Catalytic activity/Vol] 21 U/L Normal 13-39 [facility] Comment on above: Performed By: #### M G, [id number], RETIC, FE and TIBC, JOSE, BMP #### [address] Bilirubin [Mass/Vol] 0.3 mg/dL Normal 0.3-1.0 [facility] Comment on above: Performed By: #### M G, [id number], RETIC, FE and TIBC, JOSE, BMP #### [address] Calcium [Mass/Vol] 8.2 mg/dL Low 8.6-10.3 [facility] Comment on above: Performed By: #### M G, [id number], RETIC, FE and TIBC, JOSE, BMP #### [facility] [address] [place] [address] Chloride [Moles/Vol] 98 mmol/L Normal 98-107 [facility] Comment on above: Performed By: #### M G, [id number], RETIC, FE and TIBC, JOSE, BMP #### [address] CO2 [Moles/Vol] 25.7 mmol/L Normal 21.0-31.0 [facility] Comment on above: Performed By: #### M G, [id number], RETIC, FE and TIBC, JOSE, BMP #### [address] [place] [address] [place] Creatinine [Mass/Vol] 1.23 mg/dL High 0.60-1.20 [facility] Comment on above: Performed By: #### M G, [id number], RETIC, FE and TIBC, JOSE, BMP #### [facility] [address] Creatinine Clr Calc Pharmacy 48.79 [facility] Comment on above: Performed By: #### M G, [id number], RETIC, FE and TIBC, JOSE, BMP #### [facility] [address] GFR/1.73 sq M.predicted MDRD (S/P/Bld) [Vol rate/Area] 50.309 mL/min/{1.73_m2} [facility] Comment on above: Performed By: #### M G, [id number], RETIC, FE and TIBC, JOSE, BMP #### [address] Globulin (S) [Mass/Vol] 2.3 g/dL [facility] Comment on above: Performed By: #### M G, [id number], RETIC, FE and TIBC, JOSE, BMP #### [address] Glucose [Mass/Vol] 98 mg/dL Normal 70-100 [facility] Comment on above: Result Comment: [facility] Glucose Reference Range is dependent on time and content of last meal. Glucose of more than 200 mg/dL in a nonstressed, ambulatory subject supports the diagnosis of Diabetes Mellitus. ADA recommended reference range Performed By: #### M G, [id number], RETIC, FE and TIBC, JOSE, BMP #### [address] Potassium [Moles/Vol] 4.7 mmol/L Normal 3.5-5.1 [facility] Comment on above: Performed By: #### M G, [id number], RETIC, FE and TIBC, JOSE, BMP #### [facility] [address] Protein [Mass/Vol] 5.9 g/dL Low 6.4-8.9 [facility] Comment on above: Performed By: #### M G, [id number], RETIC, FE and TIBC, JOSE, BMP #### [facility] [address] Sodium [Moles/Vol] 129 mmol/L Low 136-145 [facility] Comment on above: Performed By: #### M G, [id number], RETIC, FE and TIBC, JOSE, BMP #### [facility] [address] Urea nitrogen [Mass/Vol] 36 mg/dL High 7-25 [facility] Comment on above: Performed By: #### M G, [id number], RETIC, FE and TIBC, JOSE, BMP #### [facility] [address] Creatine Kinaseon 10-28-2022 CK [Catalytic activity/Vol] 45 U/L Normal [facility] Comment on above: Performed By: #### M G, [id number], RETIC, FE and TIBC, JOSE, BMP #### [address] Creatine kinase [Enzymatic a ctivity/volume] in Serum or PlasmaOrdered By: Favian Helm on 10-28-2022 CK [Catalytic activity/Vol] 45 U/L [facility] Creatinine [Mass/volume] in Serum or PlasmaOrdered By: Favian Helm on 10-28-2022 Creatinine [Mass/Vol] 1.23 mg/dL 0.60-1.20 [facility] ECG 12 lead ECGon 10-28-2022 ECG 12 lead ECG [facility] Main [place] [address] [place] [address] Electrocardiograph Report Signed Patient: Mabel Moser MR#: [id number] : 1960 Acct:[id number] Age/Sex: 62 / F ADM Date: 10/28/22 Loc: ER Room: Type: [facility] ER Attending Dr: Ordering Provider: [...] normal variant Confirmed by Chris MAURO DO ([id number]) on 10/28/2022 8:40:44 PM Referred By: Electronically Signed By:Chris MAURO DO Transcribed By: MUS Signed By Chris Mauro DO 0 10/28/222039 Normal [facility] Eosinophils Auto (Bld) [#/Vo l]Ordered By: Favian Helm on 10-28-2022 Eosinophils (Bld) [#/Vol] 0.1 10*3/uL 0.0-0.45 [facility] [facility] E[facility]/100 WBC Auto (Bl d)Ordered By: Favian Helm on 10-28-2022 Eosinophils/100 WBC (Bld) 1.0 % . [facility] Erythrocyte distribution wid th Auto (RBC) [Ratio]Ordered By: Favian Helm on 10-28-2022 Erythrocyte distribution width (RBC) [Ratio] 16.5 % 11.9-15.3 [facility] Globulin Calc (S) [Mass/Vol] Ordered By: Favian Helm on 10-28-2022 Globulin (S) [Mass/Vol] 2.3 g/dL [facility] Glucose [Mass/volume] in Ser um or PlasmaOrdered By: Favian Helm on 10-28-2022 Glucose [Mass/Vol] 98 mg/dL 70-100 [facility] Comment on above: ADA recommended refe rence rangeRandom Glucose Reference Range is dependent on time and content of last meal. Glucose of more than 200 mg/dL in a nonstressed, ambulatory subject supports the diagnosis of Diabetes Mellitus. Hematocrit Auto (Bld) [Volum e fraction]Ordered By: Favian Helm on 10-28-2022 Hematocrit (Bld) [Volume fraction] 29.9 % 34.0-46.4 [facility] Hemoglobin [Mass/volume] in BloodOrdered By: Favian Helm on 10-28-2022 Hemoglobin (Bld) [Mass/Vol] 9.6 g/dL 11.8-15.4 [facility] Laboratory - CoagulationOrde red By: Favian Helm on 10-28-2022 PT Coag (PPP) [Time] 11.0 s 9.0-12.9 [facility] Leukocytes [#/volume] correc nicol for nucleated erythrocytes in Blood by Automated counOrdered By: Favian Helm on 10-28-2022 WBC corrected for nucl RBC Auto (Bld) [#/Vol] 6.6 10*3/uL 3.8-11.6 [facility] Lymphocytes Auto (Bld) [#/Vo l]Ordered By: Favian Helm on 10-28-2022 Lymphocytes (Bld) [#/Vol] 0.8 10*3/uL 1.00-4.8 [facility] Lymphocytes/100 WBC Auto (Bl d)Ordered By: Favian Helm on 10-28-2022 Lymphocytes/100 WBC (Bld) 12.8 % . [facility] MCH Auto (RBC) [Entitic mass ]Ordered By: Favian Helm on 10-28-2022 MCH (RBC) [Entitic mass] 28.3 pg 24.7-34.3 [facility] MCHC Auto (RBC) [Mass/Vol]Or dered By: Favian Helm on 10-28-2022 MCHC (RBC) [Mass/Vol] 32.0 g/dL 32.0-35.0 [facility] MCV Auto (RBC) [Entitic vol] Ordered By: Favian Helm on 10-28-2022 MCV (RBC) [Entitic vol] 88.3 fL 80-100 [facility] Magnesiumon 10-28-2022 Magnesium [Mass/Vol] 1.9 mg/dL Normal 1.9-2.7 [facility] Comment on above: Result Comment: PERF ORMED BY: [facility] [address] [place] [address] PATHOLOGIST [employer] TANNER GAVIN M.D. Performed By: #### M G, [id number], RETIC, FE and TIBC, JOSE, BMP #### [address] Magnesium [Mass/volume] in S andrea or PlasmaOrdered By: Favian Helm on 10-28-2022 Magnesium [Mass/Vol] 1.9 mg/dL 1.9-2.7 [facility] Monocyte distribution width [Entitic volume] in Blood by AutomatedOrdered By: Favian Helm on 10-28-2022 Monocyte distribution width Auto (Bld) [Entitic vol] 17.29 % 0.00-20.00 [facility] Monocytes Auto (Bld) [#/Vol] Ordered By: Favian Helm on 10-28-2022 Monocytes (Bld) [#/Vol] 0.2 10*3/uL 0.0-0.8 [facility] Monocytes/100 WBC Auto (Bld) Ordered By: Favian Helm on 10-28-2022 Monocytes/100 WBC (Bld) 2.5 % . [facility] Natriuretic peptide B [Mass/ Vol]Ordered By: Favian Helm on 10-28-2022 Natriuretic peptide B (Bld) [Mass/Vol] 551.0 pg/mL 5-100 [facility] Neutrophils Auto (Bld) [#/Vo l]Ordered By: Favian Helm on 10-28-2022 Neutrophils (Bld) [#/Vol] 5.5 10*3/uL 1.8-7.7 [facility] Neutrophils/100 WBC Auto (Bl d)Ordered By: Favian Helm on 10-28-2022 Neutrophils/100 WBC (Bld) 83.3 % . [facility] No Panel InformationOrdered By: Favian Helm on 10-28-2022 Estimated GFR (CKD-EPI) 50.309 mL/Min [facility] Creatinine Clearance (Chem 48.79 [facility] Nucleated erythrocytes [Pres ence] in Blood by Automated countOrdered By: Favian Helm on 10-28-2022 Nucleated RBC Auto Ql (Bld) 0.0 /100{WBC} 0-0.5 [facility] Office Visiton 10-28-2022 Follow-up visit [id number] Loren Moser 1960 F Date Provider Department Center 10/28/2022 RHIANNON MEDINA YVONNE [facility] No family history on file Level of Service:35608 [place] OFFICE/OUTPATIENT ESTABLISHED MOD MDM 30-39 MIN Normal [facility] Partial Thromboplastin Timeo n 10-28-2022 aPTT Coag (Bld) [Time] 31.7 s Normal 25.1-36.5 [facility] Comment on above: Result Comment: PERF ORMED BY: [facility] [address] [place] [address] PATHOLOGIST [employer] TANNER GAVIN M.D. Performed By: #### M G, [id number], RETIC, FE and TIBC, JOSE, BMP #### [facility] [address] Platelet mean volume Auto (B ld) [Entitic vol]Ordered By: Favian Helm on 10-28-2022 Platelet mean volume (Bld) [Entitic vol] 7.3 fL 6.3-10.7 [facility] Platelet poor plasma interna tional normalized ratio (INR) by coagulation assay (relatOrdered By: Favian Helm on 10-28-2022 INR Coag (PPP) [Relative time] 1.0 {INR} [facility] Comment on above: INR Therapeutic [...] 10-28-2022 Platelets (Bld) [#/Vol] 260 10*3/uL 150-450 [facility] Potassium [Moles/volume] in Serum or PlasmaOrdered By: Favian Hlem on 10-28-2022 Potassium [Moles/Vol] 4.7 mmol/L 3.5-5.1 [facility] Protein [Mass/volume] in Ser um or PlasmaOrdered By: Favian Helm on 10-28-2022 Protein [Mass/Vol] 5.9 g/dL 6.4-8.9 [facility] Prothrombin Time INRon 10-28 INR Coag (PPP) [Relative time] 1.0 {INR} Normal [facility] Comment on above: Result Comment: [...] - 4.5 Performed By: #### M G, [id number], RETIC, FE and TIBC, JOSE, BMP #### [facility] [address] PT Coag (PPP) [Time] 11.0 s Normal 9.0-12.9 [facility] Comment on above: Performed By: #### M G, [id number], RETIC, FE and TIBC, JOSE, BMP #### [facility] [address] [place] [address] RBC Auto (Bld) [#/Vol]Ordere d By: Favian Helm on 10-28-2022 RBC (Bld) [#/Vol] 3.38 10*6/uL 3.60-5.00 [facility] Serum or plasma albumin/glob ulin mass ratioOrdered By: Favian Helm on 10-28-2022 Albumin/Globulin [Mass ratio] 1.6 {ratio} [facility] Serum or plasma anion gap de terminationOrdered By: Favian Helm on 10-28-2022 Anion gap [Moles/Vol] 10.0 mmol/L 6.0-15.0 [facility] Sodium [Moles/volume] in Ser um or PlasmaOrdered By: Favian Helm on 10-28-2022 Sodium [Moles/Vol] 129 mmol/L 136-145 [facility] Troponin I High Sensitivityo n 10-28-2022 Troponin I High Sensitivity 5.8 pg/mL Normal 0.0-15.0 [facility] Comment on above: Result Comment: PERF ORMED BY: [place] [address] PATHOLOGIST [employer] TANNER GAVIN M.D. Performed By: #### M G, [id number], RETIC, FE and TIBC, OJSE, BMP #### [address] Troponin I.cardiac [Mass/vol ume] in Serum or Plasma by Detection limit <= 0.01 ng/Ordered By: Favian Helm on 10-28-2022 Troponin I.cardiac DL <= 0.01 ng/mL [Mass/Vol] 5.8 pg/mL 0.0-15.0 [facility] Urea nitrogen [Mass/volume] in Serum or PlasmaOrdered By: Favian Helm on 10-28-2022 Urea nitrogen [Mass/Vol] 36 mg/dL 7-25 [facility] WBC Auto (Bld) [#/Vol]Ordere d By: Favian Helm on 10-28-2022 WBC (Bld) [#/Vol] 6.6 10*3/uL 3.8-11.6 [facility] XR chest 2V*on 10-28-2022 XR chest 2V* [facility] [place] [address] [place], [place] [id number] XRay Report Signed Patient: Mabel Moser MR#: [id number] : 1960 Acct:[id number] Age/Sex: 62 / F ADM Date: 10/28/22 Loc: ER Room: Type: [facility] ER Attending Dr: Copies to: Favian Helm PA-C Ordering Provider: Favian Helm PA-C Date of Service: 10/28/22 XR/XR chest 2V*: Shortness of Breath/Dyspnea Plain film chest 2 view HISTORY: Fluid overload. Shortness of breath. Headache. COMPARISON: 08/31/2018 FINDINGS: SUPPORT DEVICES: None POSTSURGICAL CHANGES: Right Wvuspr-j-Nuzh intact with tip overlying the distal SVC. HEART: Within normal limits PULMONARY RAI: Within normal limits MEDIASTINUM: Unremarkable LUNGS AND PLEURA: No acute lung process, pleural effusion or pneumothorax identified. BONY STRUCTURES: Intact ADDITIONAL FINDINGS None XR/XR chest 2V* IMPRESSION: No acute process. Impression dictated by: Baljinder Ball M.D.10/28/2022 7:50 PM Dictation Location: [place] [address] Transcribed By: [facility] 10/28/221949 Dictated By: Baljinder Ball DO 10/28/221945 Signed By: 10/28/221949 [facility] BNPon 10-26-2022 Natriuretic peptide B (Bld) [Mass/Vol] 2657.0 pg/mL Critically high <=900.0 [facility] Comment on above: Performed By: #### C MP, BNP ####[facility] [address] [place], [place] [address]DrKianna Tripathi CBC AUTO DIFFon 10-26-2022 BASO # 0.0 103/ul Normal 0.0-0.1 [facility] Comment on above: Performed By: #### C BC ####[facility] Y[address] [place], [place] [address]Dr. Airam Tripathi Basophils/100 WBC (Bld) 0.5 % Normal 0.2-2.0 [facility] Comment on above: Performed By: #### C BC ####[facility] [address] [place], [place] [address]DrKianna Tripathi EO # 0.3 103/ul Normal 0.0-0.7 [facility] Comment on above: Performed By: #### C BC ####[facility] [address] [place], [place] [address]DrKianna Tripathi Eosinophils/100 WBC (Bld) 4.8 % Normal 0.9-7.0 [facility] Comment on above: Performed By: #### C BC ####[facility] [address] [place], [place] [address]DrKianna Tripathi Erythrocyte distribution width (RBC) [Ratio] 15.5 % Critically high 11.0-15.0 [facility] Comment on above: Performed By: #### C BC ####[facility] [address] [place] [address]Dr. Airam Tripathi Hematocrit (Bld) [Volume fraction] 27.7 % Critically low 36.0-48.0 [facility] Comment on above: Performed By: #### C BC ####[facility] [address]ftig[address]oc[address] [place], [place] [address]Dr. Airam Tripathi Hemoglobin (Bld) [Mass/Vol] 8.8 g/dL Critically low 12.0-16.0 [facility] Comment on above: Performed By: #### C BC ####[facility] Wq[address]tyx[address] [place], [place] [address]Dr. Airam Tripathi IG # 0.03 10e3/ul Normal 0.00-0.03 [facility] Comment on above: Performed By: #### C BC ####[facility] [address] [place], [place] [address]Dr. Selenaneil Tripathi IG % 0.5 % Normal 0.0-0.5 [facility] Comment on above: Performed By: #### C BC ####[facility] Yr[address]fuuryl[address] [place], [place] [address]DrKianna Airam Tripathi LYMPH # 1.6 103/ul Normal 1.2-3.8 [facility] Comment on above: Performed By: #### C BC ####[facility] [address]kez[address] [place], [place] [address]DrKianna Selenaneil Tripathi Lymphocytes/100 WBC (Bld) 25.5 % Normal 20.5-60.0 [facility] Comment on above: Performed By: #### C BC ####[facility] [address] [place], [place] [address]DrKianna Selenaneil Tripathi MANUAL DIFF REQ NO Normal [facility] Comment on above: Performed By: #### C BC ####[facility] [address] [place], [place] [address]DrKianna Tripathi MCH (RBC) [Entitic mass] 29.0 pg Normal 26.7-34.0 [facility] Comment on above: Performed By: #### C BC ####[facility] [address] [place] [address]Dr. Airam Deuce MCHC (RBC) [Mass/Vol] 31.8 g/dL Normal 29.9-35.2 [facility] Comment on above: Performed By: #### C BC ####[facility] Z[address]on[address] [place], [place] [address]DrKianna Tripathi MCV (RBC) [Entitic vol] 91.4 fL Normal 81.0-99.0 [facility] Comment on above: Performed By: #### C BC ####[facility] G[address]svwot[address] [place], [place] [address]DrKianna Tripathi MONO # 0.5 103/ul Normal 0.3-0.8 [facility] Comment on above: Performed By: #### C BC ####[facility] Hx[address]ervx[address] [place], [place] [address]Dr. Airam Tripathi Monocytes/100 WBC (Bld) 7.5 % Normal 1.7-12.0 [facility] Comment on above: Performed By: #### C BC ####[facility] [address] [place], [place] [address]DrKianna Tripathi NEUT # 3.9 103/ul Normal 1.4-6.5 [facility] Comment on above: Performed By: #### C BC ####[facility] V[address]xowumc[address] [place], [place] [address]Dr. Airam Tripathi Neutrophils/100 WBC (Bld) 61.2 % Normal 43.0-75.0 [facility] Comment on above: Performed By: #### C BC ####[facility] [address]vf[address] [place], [place] [address]DrKianna Tripathi Platelet mean volume (Bld) [Entitic vol] 9.4 fL Critically low 9.5-13.5 [facility] Comment on above: Performed By: #### C BC ####[facility] [address]uy[address]as[address] [place], [place] [address]Dr. Airam Tripathi PLT 247 103/ul Normal 150-450 [facility] Comment on above: Performed By: #### C BC ####[facility] [address] [place] [address]Dr. Selenaneil Deuce RBC 3.03 106/ul Critically low 4.20-5.40 [facility] Comment on above: Performed By: #### C BC ####[facility] [address] [place] [address]Dr. Airam Tripathi WBC 6.4 103/ul Normal 4.0-11.0 [facility] Comment on above: Performed By: #### C BC ####[facility] [address] [place] [address]DrKianna Tripathi PROF 14(COMP METB)on 023 Albumin [Mass/Vol] 2.5 g/dL Critically low 3.4-5.0 [facility] Comment on above: Performed By: #### C MP, BNP ####[facility] Wq[address]pe[address] [place], [place] [address]Dr. Airam Tripathi Albumin/Globulin [Mass ratio] 0.9 {ratio} Normal [facility] Comment on above: Performed By: #### C MP, BNP ####[facility] [address] [place] [address]Dr. Airam Tripathi ALP [Catalytic activity/Vol] 108 U/L Normal 46-116 [facility] Comment on above: Performed By: #### C MP, BNP ####[facility] [address] [place] [address]Dr. Airam Tripathi ALT [Catalytic activity/Vol] 20 U/L Normal 14-59 [facility] Comment on above: Performed By: #### C MP, BNP ####[facility] [address] [place] [address]DrKianna Tripathi Anion gap [Moles/Vol] 10.4 mmol/L Normal [facility] Comment on above: Performed By: #### C MP, BNP ####[facility] V[address]we[address] [place], [place] [address]Dr. Airam Tripathi AST [Catalytic activity/Vol] 20 U/L Normal 15-37 [facility] Comment on above: Performed By: #### C MP, BNP ####[facility] [address]ys[address] [place] [address]Dr. Airam Tripathi Bilirubin [Mass/Vol] 0.2 mg/dL Normal 0.2-1.0 [facility] Comment on above: Performed By: #### C MP, BNP ####[facility] Hsplxbjvrf[address] [place], [place] [address]Dr. Airam Tripathi Calcium [Mass/Vol] 8.0 mg/dL Critically low 8.5-10.1 [facility] Comment on above: Performed By: #### C MP, BNP ####[facility] K[address]tiqdj[address] [place], [place] [address]Dr. Airam Tripathi Chloride [Moles/Vol] 100 mmol/L Normal 98-107 [facility] Comment on above: Performed By: #### C MP, BNP ####[facility] Qtqmpqhlzc[address] [place], [place] [address]Dr. Airam Tripathi CO2 [Moles/Vol] 28.6 mmol/L Normal 21.0-32.0 [facility] Comment on above: Performed By: #### C MP, BNP ####[facility] Wjcrphyyqs[address] [place], [place] [address]Dr. Airam Tripathi Creatinine [Mass/Vol] 1.66 mg/dL Critically high 0.55-1.02 [facility] Comment on above: Performed By: #### C MP, BNP ####[facility] Cewutyamxy[address] [place], [place] [address]Dr. Airam Tripathi EGFR-AF ARGENTINE 38 mL/min/1.73m2 Critically low >=60 [facility] Comment on above: Performed By: #### C MP, BNP ####[facility] Sulirrvolw[address] [place], [place] [address]Dr. Airam Tripathi EGFR-NON AF ARGENTINE 32 mL/min/1.73m2 Critically low >=60 [facility] Comment on above: Performed By: #### C MP, BNP ####[facility] C[address] [place], [place] [address]Dr. Airam Tripathi Globulin (S) [Mass/Vol] 2.8 g/dL Normal [facility] Comment on above: Performed By: #### C MP, BNP ####[facility] Atblasjdem[address] [place], [place] [address]Dr. Airam Tripathi Glucose [Mass/Vol] 102 mg/dL Normal 74-106 [facility] Comment on above: Performed By: #### C MP, BNP ####[facility] Khgfowcmcn[address] [place], [place] [address]Dr. Airam Tripathi Potassium [Moles/Vol] 5.0 mmol/L Normal 3.5-5.1 [facility] Comment on above: Performed By: #### C MP, BNP ####[facility] V[address]jl[address] [place], [place] [address]Dr. Airam Tripathi Protein [Mass/Vol] 5.3 g/dL Critically low 6.4-8.2 [facility] Comment on above: Performed By: #### C MP, BNP ####[facility] [address]yuqxyqege[address] [place], [place] [address]Dr. Airam Tripathi Sodium [Moles/Vol] 134 mmol/L Critically low 136-145 [facility] Comment on above: Performed By: #### C MP, BNP ####[facility] Wycjsdipcl[address] [place], [place] [address]Dr. Airam Tripathi Urea nitrogen [Mass/Vol] 45.0 mg/dL Critically high 7.0-18.0 [facility] Comment on above: Performed By: #### C MP, BNP ####[facility] Clyiluspoa[address] [place], [place] [address]Dr. Airam Tripathi Urea nitrogen/Creatinine [Mass ratio] 27.1 mg/mg Normal [facility] Comment on above: Performed By: #### C MP, BNP ####[facility] [address]lsp[address] [place], [place] [address]Dr. Airam Triptahi BNPon 10-25-2022 Natriuretic peptide B (Bld) [Mass/Vol] 4569.0 pg/mL Critically high <=900.0 [facility] Comment on above: Performed By: #### C MP, BNP ####[facility] [address] [place] [address]Dr. Airam Deuce CBC AUTO DIFFon 10-25-2022 BASO # 0.0 103/ul Normal 0.0-0.1 [facility] Comment on above: Performed By: #### C BC ####[facility] [address]tp[address]fkm[address] [place], [place] [address]Dr. Selenaneil Tripathi Basophils/100 WBC (Bld) 0.5 % Normal 0.2-2.0 [facility] Comment on above: Performed By: #### C BC ####[facility] Fpqefqygja[address] [place], [place] [address]Dr. Airam Tripathi EO # 0.3 103/ul Normal 0.0-0.7 [facility] Comment on above: Performed By: #### C BC ####[facility] Oeh[address]dkd[address] [place], [place] [address]Dr. Selenaneil Tripathi Eosinophils/100 WBC (Bld) 5.6 % Normal 0.9-7.0 [facility] Comment on above: Performed By: #### C BC ####[facility] Askydkfmga[address] [place], [place] [address]Dr. Airam Tripathi Erythrocyte distribution width (RBC) [Ratio] 15.7 % Critically high 11.0-15.0 [facility] Comment on above: Performed By: #### C BC ####[facility] Mcdoyqbphm[address] [place], [place] [address]Dr. Airam Tripathi Hematocrit (Bld) [Volume fraction] 30.1 % Critically low 36.0-48.0 [facility] Comment on above: Performed By: #### C BC ####[facility] Lqvhkuspuz[address] [place], [place] [address]Dr. Airam Tripathi Hemoglobin (Bld) [Mass/Vol] 9.2 g/dL Critically low 12.0-16.0 [facility] Comment on above: Performed By: #### C BC ####[facility] [address] [place] [address]Dr. Airam Tripathi IG # 0.03 10e3/ul Normal 0.00-0.03 [facility] Comment on above: Performed By: #### C BC ####[facility] [address]sim[address] [place] [address]DrKianna Selenaneil Tripathi IG % 0.5 % Normal 0.0-0.5 [facility] Comment on above: Performed By: #### C BC ####[facility] [address]hwpg[address] [place], [place] [address]DrKianna Selenaneil Tripathi LYMPH # 1.7 103/ul Normal 1.2-3.8 [facility] Comment on above: Performed By: #### C BC ####[facility] Rmtwkoytqz[address] [place], [place] [address]DrKianna Selenaneil Tripathi Lymphocytes/100 WBC (Bld) 28.9 % Normal 20.5-60.0 [facility] Comment on above: Performed By: #### C BC ####[facility] [address]vhc[address] [place], [place] [address]DrKianna Selenaneil Tripathi MANUAL DIFF REQ NO Normal [facility] Comment on above: Performed By: #### C BC ####[facility] Y[address] [place], [place] [address]DrKianna Airam Deuce MCH (RBC) [Entitic mass] 28.4 pg Normal 26.7-34.0 [facility] Comment on above: Performed By: #### C BC ####[facility] [address]kvgl[address] [place], [place] [address]DrKianna Airam Deuce MCHC (RBC) [Mass/Vol] 30.6 g/dL Normal 29.9-35.2 [facility] Comment on above: Performed By: #### C BC ####[facility] R[address]ddigii[address] [place], [place] [address]DrKianna Selenaneil Tripathi MCV (RBC) [Entitic vol] 92.9 fL Normal 81.0-99.0 [facility] Comment on above: Performed By: #### C BC ####[facility] [address]jmfjsf[address] [place], [place] [address]Dr. Airam Tripathi MONO # 0.5 103/ul Normal 0.3-0.8 [facility] Comment on above: Performed By: #### C BC ####[facility] [address]breut[address] [place] [address]Dr. Airam Tripathi Monocytes/100 WBC (Bld) 8.5 % Normal 1.7-12.0 [facility] Comment on above: Performed By: #### C BC ####[facility] [address]nexmsw[address] [place] [address]Dr. Airam Tripathi NEUT # 3.2 103/ul Normal 1.4-6.5 [facility] Comment on above: Performed By: #### C BC ####[facility] [address] [place] [address]Dr. Airam Tripathi Neutrophils/100 WBC (Bld) 56.0 % Normal 43.0-75.0 [facility] Comment on above: Performed By: #### C BC ####[facility] [address]xcct[address] [place] [address]Dr. Airam Tripathi Platelet mean volume (Bld) [Entitic vol] 9.4 fL Critically low 9.5-13.5 [facility] Comment on above: Performed By: #### C BC ####[facility] [address]uxm[address] [place] [address]Dr. Airam Tripathi PLT 272 103/ul Normal 150-450 [facility] Comment on above: Performed By: #### C BC ####[facility] [address] [place] [address]Dr. Airam Tripathi RBC 3.24 106/ul Critically low 4.20-5.40 [facility] Comment on above: Performed By: #### C BC ####[facility] [address]jk[address] [place], [place] [address]Dr. Airam Tripathi WBC 5.8 103/ul Normal 4.0-11.0 [facility] Comment on above: Performed By: #### C BC ####[facility] [address]uyqsy[address] [place], [place] [address]DrKianna Airam Tripathi OSMOLALITYon 10-25-2022 Osmolality [Osmolality] 282 mosm/kg Normal 275-295 [facility] Comment on above: Performed By: #### O SMO ####[facility] [address]yr[address] [place] [address]Dr. Airam Tripathi PROF 14(COMP METB)on 023 Albumin [Mass/Vol] 2.7 g/dL Critically low 3.4-5.0 [facility] Comment on above: Performed By: #### C MP, BNP ####[facility] S[address]jn[address]wcl[address] [place], [place] [address]Dr. Airam Tripathi Albumin/Globulin [Mass ratio] 0.9 {ratio} Normal [facility] Comment on above: Performed By: #### C MP, BNP ####[facility] [address]xdxxbn[address] [place] [address]Dr. Airam Tripathi ALP [Catalytic activity/Vol] 122 U/L Critically high 46-116 [facility] Comment on above: Performed By: #### C MP, BNP ####[facility] [address]ynapefm[address] [place], [place] [address]Dr. Airam Tripathi ALT [Catalytic activity/Vol] 23 U/L Normal 14-59 [facility] Comment on above: Performed By: #### C MP, BNP ####[facility] [address]reyvo[address] [place] [address]Dr. Airam Tripathi Anion gap [Moles/Vol] 10.5 mmol/L Normal [facility] Comment on above: Performed By: #### C MP, BNP ####[facility] [address]wrwjmer[address] [place], [place] [address]Dr. Airam Tripathi AST [Catalytic activity/Vol] 22 U/L Normal 15-37 [facility] Comment on above: Performed By: #### C MP, BNP ####[facility] [address]znrodr[address] [place], [place] [address]Dr. Airam Tripathi Bilirubin [Mass/Vol] 0.2 mg/dL Normal 0.2-1.0 [facility] [facility] Comment [facility]: Performed By: #### C MP, BNP ####[facility] Eqetiycrnt[address] [place], [place] [address]Dr. Airam Tripathi Calcium [Mass/Vol] 8.3 mg/dL Critically low 8.5-10.1 [facility] Comment on above: Performed By: #### C MP, BNP ####[facility] Ncxmzjygfw[address] [place], [place] [address]Dr. Airam Triptahi Chloride [Moles/Vol] 102 mmol/L Normal 98-107 [facility] Comment on above: Performed By: #### C MP, BNP ####[facility] Tddtedgkve[address] [place], [place] [address]Dr. Airam Tripathi CO2 [Moles/Vol] 29.7 mmol/L Normal 21.0-32.0 [facility] Comment on above: Performed By: #### C MP, BNP ####[facility] Ftuiuuklix[address] [place], [place] [address]Dr. Airam Tripathi Creatinine [Mass/Vol] 1.31 mg/dL Critically high 0.55-1.02 [facility] Comment on above: Performed By: #### C MP, BNP ####[facility] Gmbfprhptw2364[address] [place], [place] [address]Dr. Airam Tripathi EGFR-AF ARGENTINE 50 mL/min/1.73m2 Critically low >=60 [facility] Comment on above: Performed By: #### C MP, BNP ####[facility] Ltzmguormq[address] [place], [place] [address]Dr. Airam Tripathi EGFR-NON AF ARGENTINE 41 mL/min/1.73m2 Critically low >=60 [facility] Comment on above: Performed By: #### C MP, BNP ####[facility] Yxfrxtfaqs[address] [place], [place] [address]Dr. Airam Tripathi Globulin (S) [Mass/Vol] 2.9 g/dL Normal [facility] Comment on above: Performed By: #### C MP, BNP ####[facility] Wmexltljjn50[address] [place], [place] [address]Dr. Airam Tripathi Glucose [Mass/Vol] 94 mg/dL Normal 74-106 [facility] Comment on above: Performed By: #### C MP, BNP ####[facility] [address]qrjpfa[address] [place] [address]Dr. Airam Tripathi Potassium [Moles/Vol] 4.2 mmol/L Normal 3.5-5.1 [facility] Comment on above: Performed By: #### C MP, BNP ####[facility] Iywcnrlrpv[address] [place], [place] [address]Dr. Airam Tripathi Protein [Mass/Vol] 5.6 g/dL Critically low 6.4-8.2 [facility] Comment on above: Performed By: #### C MP, BNP ####[facility] Rpffryjghh29[address] [place], [place] [address]Dr. Airam Tripathi Sodium [Moles/Vol] 138 mmol/L Normal 136-145 [facility] Comment on above: Performed By: #### C MP, BNP ####[facility] Ltdfdwdukl528[address] [place], [place] [address]Dr. Airam Tripathi Urea nitrogen [Mass/Vol] 33.0 mg/dL Critically high 7.0-18.0 [facility] Comment on above: Performed By: #### C MP, BNP ####[facility] Mlmavhyihl[address] [place], [place] [address]Dr. Airam Tripathi Urea nitrogen/Creatinine [Mass ratio] 25.2 mg/mg Normal [facility] Comment on above: Performed By: #### C MP, BNP ####[facility] Qpfkkzzgtl6[address] [place], [place] [address]Dr. Airam Tripathi BNPon 10-24-2022 Natriuretic peptide B (Bld) [Mass/Vol] 3805.0 pg/mL Critically high <=900.0 [facility] Comment on above: Performed By: #### H STROPN, BNP, CMP ####[facility] Udtwhwssgm[address] [place], [place] [address]Dr. Airam Tripathi CBC AUTO DIFFon 10-24-2022 BASO # 0.0 103/ul Normal 0.0-0.1 [facility] Comment on above: Performed By: #### C BC ####[facility] Pkbfndscqv[address] [place], [place] [address]Dr. Airam Tripathi Basophils/100 WBC (Bld) 0.3 % Normal 0.2-2.0 [facility] Comment on above: Performed By: #### C BC ####[facility] Wknmwigecz[address] [place] [address]Dr. Airam Tripathi EO # 0.3 103/ul Normal 0.0-0.7 [facility] Comment on above: Performed By: #### C BC ####[facility] Vfwcmtsqoj834[address] [place], [place] [address]Dr. Airam Tripathi Eosinophils/100 WBC (Bld) 4.2 % Normal 0.9-7.0 [facility] Comment on above: Performed By: #### C BC ####[facility] Zanzkdxwee049[address] [place], [place] [address]Dr. Airam Tripathi Erythrocyte distribution width (RBC) [Ratio] 15.6 % Critically high 11.0-15.0 [facility] Comment on above: Performed By: #### C BC ####[facility] Icstalmbfd[address] [place], [place] [address]Dr. Airam Tripathi Hematocrit (Bld) [Volume fraction] 30.0 % Critically low 36.0-48.0 [facility] Comment on above: Performed By: #### C BC ####[facility] Adnyxmwxeh26[address] [place], [place] [address]Dr. Airam Tripathi Hemoglobin (Bld) [Mass/Vol] 9.3 g/dL Critically low 12.0-16.0 [facility] Comment on above: Performed By: #### C BC ####[facility] Mnwcthorht07[address] [place], [place] [address]Dr. Airam Tripathi IG # 0.03 10e3/ul Normal 0.00-0.03 [facility] Comment on above: Performed By: #### C BC ####[facility] Wswshfjuzh[address] [place], [place] [address]Dr. Airam Tripathi IG % 0.5 % Normal 0.0-0.5 [facility] Comment on above: Performed By: #### C BC ####[facility] Gpgedtbbkw70[address] [place] [id number]. Airam Deuce LYMPH # 1.4 103/ul Normal 1.2-3.8 [facility] Comment on above: Performed By: #### C BC ####[facility] Vehbimhlcx9421 [place] [address]Dr. Airam Deuce Lymphocytes/100 WBC (Bld) 22.5 % Normal 20.5-60.0 [facility] Comment on above: Performed By: #### C BC ####[facility] Zyurfgxwbq1066 [place] [address]Dr. Selenaneil Tripathi MANUAL DIFF REQ NO Normal [facility] Comment on above: Performed By: #### C BC ####[facility] Vnrjnuhraj1861 [place] [address]Dr. Airam Deuce MCH (RBC) [Entitic mass] 28.7 pg Normal 26.7-34.0 [facility] Comment on above: Performed By: #### C BC ####[facility] Adtaqsawic03[address] [place], [place] [address]Dr. Airam Deuce MCHC (RBC) [Mass/Vol] 31.0 g/dL Normal 29.9-35.2 [facility] Comment on above: Performed By: #### C BC ####[facility] Jnkpoljwbi[address] [place], [place] [address]Dr. Selenaneil Tripathi MCV (RBC) [Entitic vol] 92.6 fL Normal 81.0-99.0 [facility] Comment on above: Performed By: #### C BC ####[facility] Uavpyxviqz12[address] [place], [place] [address]Dr. Selenaneil Tripathi MONO # 0.4 103/ul Normal 0.3-0.8 [facility] Comment on above: Performed By: #### C BC ####[facility] Npnovgmwxn[address] [place], [place] [address]Dr. Selenaneil Tripathi Monocytes/100 WBC (Bld) 7.3 % Normal 1.7-12.0 [facility] Comment on above: Performed By: #### C BC ####[facility] Agtzzviiyp0218[address] [place], [place] [address]Dr. Airam Tripathi NEUT # 3.9 103/ul Normal 1.4-6.5 [facility] Comment on above: Performed By: #### C BC ####[facility] Ehowgxytgd34[address] [place] [address]Dr. Airam Triapthi Neutrophils/100 WBC (Bld) 65.2 % Normal 43.0-75.0 [facility] Comment on above: Performed By: #### C BC ####[facility] Wtsxtvptao0491 [place] [address]Dr. Airam Tripathi Platelet mean volume (Bld) [Entitic vol] 9.0 fL Critically low 9.5-13.5 [facility] Comment on above: Performed By: #### C BC ####[facility] Biohrsjyby7[address] [place] [address]Dr. Airam Tripathi PLT 247 103/ul Normal 150-450 [facility] Comment on above: Performed By: #### C BC ####[facility] Pcwyjftjej9538 [place] [address]Dr. Airam Tripathi RBC 3.24 106/ul Critically low 4.20-5.40 [facility] Comment on above: Performed By: #### C BC ####[facility] Kqwvhwsome5[address] [place] [address]Dr. Airam Tripathi WBC 6.0 103/ul Normal 4.0-11.0 [facility] Comment on above: Performed By: #### C BC ####[facility] Rem[address]jfdny[address] [place] [address]Dr. Airam Tripathi CULTURE URINEon 10-24-2022 CULTURE URINE Culture Observations : LIGHT GROWTH OF MIXED GENITAL GREGORY. NO POTENTIAL PATHOGENS SEEN. Normal [facility] Comment on above: Performed By: #### U RCX ####[facility] Nwjvgoxkhf76[address] [place] [address]Dr. Airam Tripathi POINT OF CARE GLUCOSEon Glucose [Mass/Vol] 118 mg/dL Critically high 74-106 [facility] Comment on above: Performed By: #### P OCGLUC ####[facility] Dpzjgrohho18[address] [place] [address]Dr. Airam Tripathi PROF 14(COMP METB)on 023 Albumin [Mass/Vol] 3.1 g/dL Critically low 3.4-5.0 [facility] Comment on above: Performed By: #### H STROPN, BNP, CMP ####[facility] Frfscccvfw8451 [place] [address]Dr. Airam Tripathi Albumin/Globulin [Mass ratio] 1.0 {ratio} Normal [facility] Comment on above: Performed By: #### H STROPN, BNP, CMP ####[facility] Hlcsqykqai[address] [place] [address]Dr. Airam Tripathi ALP [Catalytic activity/Vol] 131 U/L Critically high 46-116 [facility] Comment on above: Performed By: #### H STROPN, BNP, CMP ####[facility] Ofhfxgxgaw5758 [place] [address]Dr. Airam Tripathi ALT [Catalytic activity/Vol] 26 U/L Normal 14-59 [facility] Comment on above: Performed By: #### H STROPN, BNP, CMP ####[facility] Jrmliphxkf[address] [place], [place] [address]Dr. Airam Tripathi Anion gap [Moles/Vol] 11.2 mmol/L Normal [facility] Comment on above: Performed By: #### H STROPN, BNP, CMP ####[facility] Veaghqyyqg5476 [place] [address]Dr. Airam Tripathi AST [Catalytic activity/Vol] 31 U/L Normal 15-37 [facility] Comment on above: Performed By: #### H STROPN, BNP, CMP ####[facility] Vgnnnajbon75[address] [place] [address]Dr. Airam Tripathi Bilirubin [Mass/Vol] 0.2 mg/dL Normal 0.2-1.0 [facility] Comment on above: Performed By: #### H STROPN, BNP, CMP ####[facility] Dmqmzlmpru5059 [place] [address]Dr. Airam Tripathi Calcium [Mass/Vol] 8.6 mg/dL Normal 8.5-10.1 [facility] Comment on above: Performed By: #### H STROPN, BNP, CMP ####[facility] Vhqqvfedgv6185 [place] [address]Dr. Airam Tripathi Chloride [Moles/Vol] 102 mmol/L Normal 98-107 [facility] Comment on above: Performed By: #### H STROPN, BNP, CMP ####[facility] Pgfdmaxvpx8814 [place] [address]Dr. Airam Tripathi CO2 [Moles/Vol] 27.4 mmol/L Normal 21.0-32.0 [facility] Comment on above: Performed By: #### H STROPN, BNP, CMP ####[facility] Fkapowsfqu8158 [place] [address]Dr. Airam Tripatih Creatinine [Mass/Vol] 1.23 mg/dL Critically high 0.55-1.02 [facility] Comment on above: Performed By: #### H STROPN, BNP, CMP ####[facility] Arvckewhrn39[address] [place] [address]Dr. Airam Tripathi EGFR-AF ARGENTINE 54 mL/min/1.73m2 Critically low >=60 [facility] Comment on above: Performed By: #### H STROPN, BNP, CMP ####[facility] Voyioxtoqn58[address] [place] [address]Dr. Airam Tripathi EGFR-NON AF ARGENTINE 45 mL/min/1.73m2 Critically low >=60 [facility] Comment on above: Performed By: #### H STROPN, BNP, CMP ####[facility] Gbmmnuzayd1574 [place] [address]Dr. Airam Tripathi Globulin (S) [Mass/Vol] 3.1 g/dL Normal [facility] Comment on above: Performed By: #### H STROPN, BNP, CMP ####[facility] Mvyqqgsnwm5883 [place] [address]Dr. Airam Tripathi Glucose [Mass/Vol] 90 mg/dL Normal 74-106 [facility] Comment on above: Performed By: #### H STROPN, BNP, CMP ####[facility] Ezgzurmors1691 [place] [address]Dr. Airam Tripathi Potassium [Moles/Vol] 5.6 mmol/L Critically high 3.5-5.1 [facility] Comment on above: Performed By: #### H STROPN, BNP, CMP ####[facility] Iadbtltwkn5168 [place] [address]Dr. Airam Tripathi Protein [Mass/Vol] 6.2 g/dL Critically low 6.4-8.2 [facility] Comment on above: Performed By: #### H STROPN, BNP, CMP ####[facility] Wkzxbduvxv9299 [place] [address]Dr. Airam Tripathi Sodium [Moles/Vol] 135 mmol/L Critically low 136-145 [facility] Comment on above: Performed By: #### H STROPN, BNP, CMP ####[facility] Etmnnjaitq5618 [place] [address]Dr. Airam Tripathi Urea nitrogen [Mass/Vol] 38.0 mg/dL Critically high 7.0-18.0 [facility] Comment on above: Performed By: #### H STROPN, BNP, CMP ####[facility] Lseseqgxgr[address] [place], [place] [address]Dr. Airam Tripathi Urea nitrogen/Creatinine [Mass ratio] 30.9 mg/mg Normal [facility] Comment on above: Performed By: #### H STROPN, BNP, CMP ####[facility] Vkeeiljpqe5320 [place] [address]Dr. Airam Tripathi TROPONIN, HIGH SENSITIVITYon 10-24-2022 HSTROP 8.0 pg/mL Normal 4.0-51.3 [facility] Comment on above: Result Comment: CUT- OFF POINTS HAVE BEEN ESTABLISHED BASED ON THE FOURTH UNIVERSAL DEFINITIONS OF MYOCARDIALINFARCTION. THE UPPER REFERENCE LIMIT (URL) OF TROPONIN, DEFINED THE 99TH PERCENTILE OFcTnI DISTRIBUTION IN A REFERENCE POPULATION, HAS BEEN CONFIRMED THE DECISION THRESHOLDFOR [place] DIAGNOSIS. Performed By: #### H STROPN, BNP, CMP ####[facility] Ygcwnzpnhq7[address] [place], [place] [address]Dr. Airam Tripathi UA RANDOM W/MICROSCOPICon BACTERIA NONE SEEN Normal NONE SEEN [facility] Comment on above: Performed By: #### U AMIC ####[facility] Eisxvanrpc7101 [place] [address]Dr. Airam Tripathi Bilirubin Ql (U) Negative Normal NEGATIVE [facility] Comment on above: Performed By: #### U AMIC ####[facility] Vfhmixiinj8957 [place] [address]Dr. Airam Tripathi CAST NONE SEEN Normal NONE SEEN [facility] Comment on above: Performed By: #### U AMIC ####[facility] Nacblhbkqe8977 [place] [address]Dr. Airam Tripathi Clarity (U) CLEAR Normal CLEAR [facility] Comment on above: Performed By: #### U AMIC ####[facility] Wnpivldolj1417 [place] [address]Dr. Airam Tripathi Color (U) LT. YELLOW Normal YELLOW [facility] Comment on above: Performed By: #### U AMIC ####[facility] Kfjfyaojmh0023 [place] [address]Dr. Airam Tripathi Crystals LM Nom (Urine sed) NONE SEEN Normal NONE SEEN [facility] Comment on above: Performed By: #### U AMIC ####[facility] Kkcyccknpp9082 [place] [address]Dr. Airam Tripathi Epithelial cells LM Ql (Urine sed) RARE Normal NONE SEEN /RARE [facility] Comment on above: Performed By: #### U AMIC ####[facility] Njpaowjqro7874 [place] [address]Dr. Airam Tripathi Glucose Ql (U) Negative Normal NEGATIVE [facility] Comment on above: Performed By: #### U AMIC ####[facility] Tudifsiwve7028 [place] [address]Dr. Airam Tripathi Hemoglobin Ql (U) Negative Normal NEGATIVE [facility] Comment on above: Performed By: #### U AMIC ####[facility] Kizewstuzi[address] [place], [place] [address]Dr. Airam Tripathi Ketones Ql (U) Negative Normal NEGATIVE [facility] Comment on above: Performed By: #### U AMIC ####[facility] Ehohzifnci07[address] [place], [place] [address]Dr. Airam Tripathi LEUKOCYTES Negative Normal NEGATIVE [facility] Comment on above: Performed By: #### U AMIC ####[facility] Yyhsabispk8561 [place] [address]Dr. Airam Tripathi MUCOUS NONE SEEN Normal NONE SEEN [facility] Comment on above: Performed By: #### U AMIC ####[facility] Gvqdgeaarc[address] [place], [place] [address]Dr. Airam Tripathi Nitrite Ql (U) Negative Normal NEGATIVE [facility] Comment on above: Performed By: #### U AMIC ####[facility] Qxdshqwras44[address] [place], [place] [address]Dr. Airam Tripathi pH (U) 7.0 [pH] Normal 5-9 [facility] Comment on above: Performed By: #### U AMIC ####[facility] Fwitkuvfmm[address] [place], [place] [address]Dr. Airam Tripathi RBC 0-2 Normal 0-2 [facility] Comment on above: Performed By: #### U AMIC ####[facility] Xjxmwiyczh[address] [place], [place] [address]Dr. Airam Tripathi SPEC GRAVITY 1.015 Normal 1.005-<=1. 025 [facility] Comment on above: Performed By: #### U AMIC ####[facility] Buktmkppuv264[address] [place], [place] [address]Dr. Airam Tripathi UA PROTEIN Negative Normal NEGATIVE/ TRACE [facility] Comment on above: Performed By: #### U AMIC ####[facility] Mvvnywenfz[address] [place], [place] [address]Dr. Airam Tripathi Urobilinogen Qn (U) 0.2 {Ligia'U}/dL Normal 0.2 - 1. 0 [facility] Comment on above: Performed By: #### U AMIC ####[facility] Viecootdil[address] [place], [place] [address]Dr. Airam Tripathi WBC NONE SEEN Normal NONE SEEN [facility] Comment on above: Performed By: #### U AMIC ####[facility] Tqsaefoeps5920 [place] [address]Dr. Airam Tripathi XR CHEST 1 Von 10-24-2022 XR CHEST 1 V Normal [facility] CBC AUTO DIFFon 10-19-2022 BASO # 0.0 103/ul Normal 0.0-0.1 [facility] Comment on above: Performed By: #### C BC ####[facility] Vmuqtimqge3253 [place] [address]Dr. Airam Tripathi Basophils/100 WBC (Bld) 0.5 % Normal 0.2-2.0 [facility] Comment on above: Performed By: #### C BC ####[facility] Aybpnkbjpm7289 [place] [address]Dr. Airam Tripathi EO # 0.3 103/ul Normal 0.0-0.7 [facility] Comment on above: Performed By: #### C BC ####[facility] Bgcfehzefn4057 [place] [address]Dr. Airam Tripathi Eosinophils/100 WBC (Bld) 3.3 % Normal 0.9-7.0 [facility] Comment on above: Performed By: #### C BC ####[facility] Pgvzfcscpq1818 [place] [address]Dr. Selenaneil Tripathi Erythrocyte distribution width (RBC) [Ratio] 15.0 % Normal 11.0-15.0 [facility] Comment on above: Performed By: #### C BC ####[facility] Skqmaoemcs[address] [place], [place] [address]Dr. Airam Tripathi Hematocrit (Bld) [Volume fraction] 32.9 % Critically low 36.0-48.0 [facility] Comment on above: Performed By: #### C BC ####[facility] Edeippwqmt6325 [place] [address]Dr. Selenaneil Tripathi Hemoglobin (Bld) [Mass/Vol] 10.1 g/dL Critically low 12.0-16.0 [facility] Comment on above: Performed By: #### C BC ####[facility] Fqjrlhmdks7168 [place] [id number]. Airam Tripathi IG # 0.04 10e3/ul Critically high 0.00-0.03 [facility] Comment on above: Performed By: #### C BC ####[facility] Mbpccsktpx8372 [place] [phone]. Airam Tripathi IG % 0.5 % Normal 0.0-0.5 [facility] Comment on above: Performed By: #### C BC ####[facility] Btwbrjbcwh1925 [place] [address]Dr. Airam Deuce LYMPH # 1.5 103/ul Normal 1.2-3.8 [facility] Comment on above: Performed By: #### C BC ####[facility] Zskgheoqwn7884 [place] [address]Dr. Airam Tripathi Lymphocytes/100 WBC (Bld) 18.1 % Critically low 20.5-60.0 [facility] Comment on above: Performed By: #### C BC ####[facility] Dnmqxsoxba5052 [place] [address]Dr. Airam Tripathi MANUAL DIFF REQ NO Normal [facility] Comment on above: Performed By: #### C BC ####[facility] Jfuqyrblkx0911 [place] [address]Dr. Airam Deuce MCH (RBC) [Entitic mass] 28.3 pg Normal 26.7-34.0 [facility] Comment on above: Performed By: #### C BC ####[facility] [address]mmrmotcw[address] [place], [place] [id number]. Airam Tripathi MCHC (RBC) [Mass/Vol] 30.7 g/dL Normal 29.9-35.2 [facility] Comment on above: Performed By: #### C BC ####[facility] Iassnosupd5622 [place] [phone]. Airam Deuce MCV (RBC) [Entitic vol] 92.2 fL Normal 81.0-99.0 [facility] Comment on above: Performed By: #### C BC ####[facility] Ocmeebpgip3510 [place] [phone]. Airam Tripathi MONO # 0.7 103/ul Normal 0.3-0.8 [facility] Comment on above: Performed By: #### C BC ####[facility] Yprzejlamz4782 [place] [phone]. Airam Tripathi Monocytes/100 WBC (Bld) 7.7 % Normal 1.7-12.0 [facility] Comment on above: Performed By: #### C BC ####[facility] Ycifgxtaos4203 [place] [phone]. Airam Tripathi NEUT # 5.9 103/ul Normal 1.4-6.5 [facility] Comment on above: Performed By: #### C BC ####[facility] Mxxmjvglwl2748 [place] [address]Dr. Airam Tripathi Neutrophils/100 WBC (Bld) 69.9 % Normal 43.0-75.0 [facility] Comment on above: Performed By: #### C BC ####[facility] Mdroxmfcss9763 [place] [phone]. Airam Tripathi Platelet mean volume (Bld) [Entitic vol] 9.3 fL Critically low 9.5-13.5 [facility] Comment on above: Performed By: #### C BC ####[facility] Yvtvyzffro4378 [place] [phone]. Airam Tripathi PLT 293 103/ul Normal 150-450 [facility] Comment on above: Performed By: #### C BC ####[facility] Yrrglewfys1028 [place] [phone]. Airam Tripathi RBC 3.57 106/ul Critically low 4.20-5.40 [facility] Comment on above: Performed By: #### C BC ####[facility] Jpprishmct1564 [place] [phone]. Airam Tripathi WBC 8.4 103/ul Normal 4.0-11.0 [facility] Comment on above: Performed By: #### C BC ####[facility] Nevvmyiots2401 [place] [address]Dr. Airam Tripathi PROF 14(COMP METB)on 023 Albumin [Mass/Vol] 3.1 g/dL Critically low 3.4-5.0 [facility] Comment on above: Performed By: #### C MP ####[facility] Rhydrlzycm002[address] [place], [place] [address]Dr. Airam Tripathi Albumin/Globulin [Mass ratio] 0.9 {ratio} Normal [facility] Comment on above: Performed By: #### C MP ####[facility] Ostypjgzps[address] [place], [place] [address]Dr. Airam Tripathi ALP [Catalytic activity/Vol] 117 U/L Critically high 46-116 [facility] Comment on above: Performed By: #### C MP ####[facility] Fqxjfvtuud208[address] [place], [place] [address]Dr. Airam Tripathi ALT [Catalytic activity/Vol] 24 U/L Normal 14-59 [facility] Comment on above: Performed By: #### C MP ####[facility] Kulhnogasj454[address] [place], [place] [address]Dr. Airam Tripathi Anion gap [Moles/Vol] 11.1 mmol/L Normal [facility] Comment on above: Performed By: #### C MP ####[facility] Owgkzwmohv926[address] [place], [place] [address]Dr. Airam Tripathi AST [Catalytic activity/Vol] 22 U/L Normal 15-37 [facility] Comment on above: Performed By: #### C MP ####[facility] Zmruymmypp39[address] [place], [place] [address]Dr. Airam Tripathi Bilirubin [Mass/Vol] 0.2 mg/dL Normal 0.2-1.0 [facility] Comment on above: Performed By: #### C MP ####[facility] Aqshnjauxl964[address] [place], [place] [address]Dr. Airam Tripathi Calcium [Mass/Vol] 8.4 mg/dL Critically low 8.5-10.1 [facility] Comment on above: Performed By: #### C MP ####[facility] Ceupyogwih2923 [place] [phone]. Airam Tripathi Chloride [Moles/Vol] 103 mmol/L Normal 98-107 [facility] Comment on above: Performed By: #### C MP ####[facility] Zutmqssdmr[address] [place], [place] [id number]. Airam Tripathi CO2 [Moles/Vol] 25.0 mmol/L Normal 21.0-32.0 [facility] Comment on above: Performed By: #### C MP ####[facility] Tlfrfbxjgg[address] [place], [place] [address]Dr. Airam Tripathi Creatinine [Mass/Vol] 1.27 mg/dL Critically high 0.55-1.02 [facility] Comment on above: Performed By: #### C MP ####[facility] Lffvirieeu64[address] [place], [place] [address]Dr. Airam Tripathi EGFR-AF ARGENTINE 52 mL/min/1.73m2 Critically low >=60 [facility] Comment on above: Performed By: #### C MP ####[facility] Xxqoqfuibm[address] [place], [place] [address]Dr. Airam Tripathi EGFR-NON AF ARGENTINE 43 mL/min/1.73m2 Critically low >=60 [facility] Comment on above: Performed By: #### C MP ####[facility] Whhcgcfhel[address] [place], [place] [address]Dr. Airam Tripathi Globulin (S) [Mass/Vol] 3.3 g/dL Normal [facility] Comment on above: Performed By: #### C MP ####[facility] Ohynhhwnzu87[address] [place], [place] [address]Dr. Airam Tripathi Glucose [Mass/Vol] 90 mg/dL Normal 74-106 [facility] Comment on above: Performed By: #### C MP ####[facility] Rwzufhpnqa[address] [place], [place] [address]Dr. Airam Tripathi Potassium [Moles/Vol] 5.1 mmol/L Normal 3.5-5.1 [facility] Comment on above: Performed By: #### C MP ####[facility] [address]tw[address]ets[address] [place] [id number]. Airam Tripathi Protein [Mass/Vol] 6.4 g/dL Normal 6.4-8.2 [facility] Comment on above: Performed By: #### C MP ####[facility] [address]rotamdrg[address] [place] [address]Dr. Airam Tripathi Sodium [Moles/Vol] 134 mmol/L Critically low 136-145 [facility] Comment on above: Performed By: #### C MP ####[facility] Zaeujvaowp[address] [place] [address]Dr. Airam Deuce Urea nitrogen [Mass/Vol] 33.0 mg/dL Critically high 7.0-18.0 [facility] Comment on above: Performed By: #### C MP ####[facility] Wkpwbxujzx[address] [place], [place] [address]Dr. Airam Tripathi Urea nitrogen/Creatinine [Mass ratio] 26.0 mg/mg Normal [facility] Comment on above: Performed By: #### C MP ####[facility] Jlondjjfiv[address] [place] [address]Dr. Airam Deuce OSMOLALITYon 10-15-2022 Osmolality [Osmolality] 272 mosm/kg Critically low 275-295 [facility] Comment on above: Performed By: #### O SMO ####[facility] Gcvksinkyc[address] [place], [place] [address]Dr. Selenaneil Deuce 36on 10-12-2022 36 Can you get the henry ining labs please Normal [facility] 36 TBH lab called to re port critical BNP of 1,337. FYI Normal [facility] BNPon 10-12-2022 Natriuretic peptide B (Bld) [Mass/Vol] 1337.0 pg/mL Critically high <=900.0 [facility] Comment on above: Performed By: #### B PLATE GLASS INSTALLER HELPER ####[facility] Ytzhkrdpnx[address] [place], [place] [address]Dr. Airam Deuce CBC AUTO DIFFon 10-12-2022 BASO # 0.0 103/ul Normal 0.0-0.1 [facility] Comment on above: Performed By: #### C BC ####[facility] [address]qebyyjpx4[address] [place] [id number]. Airam Tripathi Basophils/100 WBC (Bld) 0.6 % Normal 0.2-2.0 [facility] Comment on above: Performed By: #### C BC ####[facility] Jiuhfuibjt[address] [place], [place] [id number]. Airam Tripathi EO # 0.2 103/ul Normal 0.0-0.7 [facility] Comment on above: Performed By: #### C BC ####[facility] Ccyjfhbzol[address] [place], [place] [address]Dr. Airam Deuce Eosinophils/100 WBC (Bld) 2.3 % Normal 0.9-7.0 [facility] Comment on above: Performed By: #### C BC ####[facility] Fbxijxrbgy[address] [place], [place] [address]Dr. Airam Tripathi Erythrocyte distribution width (RBC) [Ratio] 15.1 % Critically high 11.0-15.0 [facility] Comment on above: Performed By: #### C BC ####[facility] Yemrwfaiqy[address] [place], [place] [address]Dr. Airam Tripathi Hematocrit (Bld) [Volume fraction] 35.9 % Critically low 36.0-48.0 [facility] Comment on above: Performed By: #### C BC ####[facility] Qudrmixlbv420[address] [place], [place] [address]Dr. Airam Tripathi Hemoglobin (Bld) [Mass/Vol] 11.4 g/dL Critically low 12.0-16.0 [facility] Comment on above: Performed By: #### C BC ####[facility] Yabgvwjtcv199[address] [place], [place] [address]Dr. Airam Deuce IG # 0.03 10e3/ul Normal 0.00-0.03 [facility] Comment on above: Performed By: #### C BC ####[facility] Zlfnqdtuoh83[address] [place], [place] [address]Dr. Airam Tripathi IG % 0.5 % Normal 0.0-0.5 [facility] Comment on above: Performed By: #### C BC ####[facility] Uskxupgupv6[address] [place] [address]DrKianna Tripathi LYMPH # 1.1 103/ul Critically low 1.2-3.8 [facility] Comment on above: Performed By: #### C BC ####[facility] Hrunpcdehh7327 [place] [id number]. Airam Tripathi Lymphocytes/100 WBC (Bld) 17.2 % Critically low 20.5-60.0 [facility] Comment on above: Performed By: #### C BC ####[facility] Xtzjfsnluu[address] [place], [place] [address]DrKianna Tripathi MANUAL DIFF REQ NO Normal [facility] Comment on above: Performed By: #### C BC ####[facility] Qtxnkdtlda34[address] [place], [place] [address]DrKianna Tripathi MCH (RBC) [Entitic mass] 28.8 pg Normal 26.7-34.0 [facility] Comment on above: Performed By: #### C BC ####[facility] Wbfdojqtbb2952 [place] [address]Dr. Airam Tripathi MCHC (RBC) [Mass/Vol] 31.8 g/dL Normal 29.9-35.2 [facility] Comment on above: Performed By: #### C BC ####[facility] Wqkjshabrg15[address] [place], [place] [address]DrKianna Tripathi MCV (RBC) [Entitic vol] 90.7 fL Normal 81.0-99.0 [facility] Comment on above: Performed By: #### C BC ####[facility] Kqpettbltb[address] [place], [place] [id number] Tripathi MONO # 0.5 103/ul Normal 0.3-0.8 [facility] Comment on above: Performed By: #### C BC ####[facility] Hmulerdeld3960 [place] [id number] Tripathi Monocytes/100 WBC (Bld) 7.7 % Normal 1.7-12.0 [facility] Comment on above: Performed By: #### C BC ####[facility] Zoerivgvqr8027 [place] [id number]. Airam Tripathi NEUT # 4.7 103/ul Normal 1.4-6.5 [facility] Comment on above: Performed By: #### C BC ####[facility] Thwcsbqhfl0492 [place] [phone] Tripathi Neutrophils/100 WBC (Bld) 71.7 % Normal 43.0-75.0 [facility] Comment on above: Performed By: #### C BC ####[facility] Grujkducma5992 [place] [address]DrKianna Tripathi Platelet mean volume (Bld) [Entitic vol] 8.2 fL Critically low 9.5-13.5 [facility] Comment on above: Performed By: #### C BC ####[facility] Agelhevski[address] [place] [address]Dr. Airam Tripathi PLT 292 103/ul Normal 150-450 [facility] Comment on above: Performed By: #### C BC ####[facility] Xfxwmtntlg9169 [place] [address]Dr. Airam Tripathi RBC 3.96 106/ul Critically low 4.20-5.40 [facility] Comment on above: Performed By: #### C BC ####[facility] Toitgqgbqs9323 [place] [phone] Tripathi WBC 6.6 103/ul Normal 4.0-11.0 [facility] Comment on above: Performed By: #### C BC ####[facility] Xaoktafwgc9334 [place] [phone] Tripathi PROF 14(COMP METB)on 023 Albumin [Mass/Vol] 3.3 g/dL Critically low 3.4-5.0 [facility] Comment on above: Performed By: #### C MP ####[facility] Uqreeearsm7649 [place] [address]DrKianna Tripathi Albumin/Globulin [Mass ratio] 0.9 {ratio} Normal [facility] Comment on above: Performed By: #### C MP ####[facility] Ucyphyobsk26[address] [place] [address]Dr. Airam Deuce ALP [Catalytic activity/Vol] 130 U/L Critically high 46-116 [facility] Comment on above: Performed By: #### C MP ####[facility] Gvzecrwjhu94[address] [place] [address]Dr. Airam Deuce ALT [Catalytic activity/Vol] 23 U/L Normal 14-59 [facility] Comment on above: Performed By: #### C MP ####[facility] Ueekcunojy0723 [place] [address]Dr. Airam Tripathi Anion gap [Moles/Vol] 11.7 mmol/L Normal [facility] Comment on above: Performed By: #### C MP ####[facility] Jhcdtabyvc[address] [place], [place] [address]Dr. Airam Tripathi AST [Catalytic activity/Vol] 23 U/L Normal 15-37 [facility] Comment on above: Performed By: #### C MP ####[facility] Syuspwghvr[address] [place], [place] [address]Dr. Airam Tripathi Bilirubin [Mass/Vol] 0.3 mg/dL Normal 0.2-1.0 [facility] Comment on above: Performed By: #### C MP ####[facility] Hzqcqyoktv7214 [place] [address]Dr. Airam Tripathi Calcium [Mass/Vol] 8.7 mg/dL Normal 8.5-10.1 [facility] Comment on above: Performed By: #### C MP ####[facility] Xynnvauwjk34[address] [place] [address]Dr. Airam Tripathi Chloride [Moles/Vol] 99 mmol/L Normal 98-107 [facility] Comment on above: Performed By: #### C MP ####[facility] Hvtqzkifzw4074 [place] [address]Dr. Airam Tripathi CO2 [Moles/Vol] 28.5 mmol/L Normal 21.0-32.0 [facility] Comment on above: Performed By: #### C MP ####[facility] Fsrgakoqog6362 [place] [address]Dr. Airam Tripathi Creatinine [Mass/Vol] 1.06 mg/dL Critically high 0.55-1.02 [facility] Comment on above: Performed By: #### C MP ####[facility] Yswzkcrthd8605 [place] [address]Dr. Airam Deuce EGFR-AF ARGENTINE >60 Normal >=60 [facility] Comment on above: Performed By: #### C MP ####[facility] Rpkqfkbbot50[address] [place] [address]Dr. Airam Deuce EGFR-NON AF ARGENTINE 53 mL/min/1.73m2 Critically low >=60 [facility] Comment on above: Performed By: #### C MP ####[facility] Nmblfskgsn[address] [place], [place] [address]Dr. Airam Deuce Globulin (S) [Mass/Vol] 3.5 g/dL Normal [facility] Comment on above: Performed By: #### C MP ####[facility] Jywfwptulo[address] [place] [address]Dr. Airam Deuce Glucose [Mass/Vol] 79 mg/dL Normal 74-106 [facility] Comment on above: Performed By: #### C MP ####[facility] Nxcomxgakx0405 [place] [address]Dr. Airam Deuce Potassium [Moles/Vol] 4.2 mmol/L Normal 3.5-5.1 [facility] Comment on above: Performed By: #### C MP ####[facility] Fwruuggchr0827 [place] [address]Dr. Airam Tripathi Protein [Mass/Vol] 6.8 g/dL Normal 6.4-8.2 [facility] Comment on above: Performed By: #### C MP ####[facility] Xespefbzmx1327 [place] [address]Dr. Airam Deuce Sodium [Moles/Vol] 135 mmol/L Critically low 136-145 [facility] Comment on above: Performed By: #### C MP ####[facility] Nsbpjztuxu2307 [place] [phone]. Airam Tripathi Urea nitrogen [Mass/Vol] 16.0 mg/dL Normal 7.0-18.0 [facility] Comment on above: Performed By: #### C MP ####[facility] Lvgywuuoqt2886 [place] [phone]. Airam Tripathi Urea nitrogen/Creatinine [Mass ratio] 15.1 mg/mg Normal [facility] Comment on above: Performed By: #### C MP ####[facility] Lilsuwowwu9546 [place] [phone]. Selenaneil Deuce XR CHEST 1 Von 10-12-2022 XR CHEST 1 V Normal [facility] Office Visiton 10-10-2022 Follow-up visit [id number] Loren Moser 1960 F Date Provider Department Center 10/10/2022 ZANDRA NASH [facility] No family history on file Level of Service:03834 [place] OFFICE/OUTPATIENT ESTABLISHED MOD MDM 30-39 MIN Reason for Visit and Comments: Congestive Heart Failure [127] Re-establish care [Other] Normal [facility] PRBC LEUKOREDUCEDon 10-10-19 23 PRBC LEUKOREDUCED Normal [facility] Comment on above: Performed By: #### P RBC ####[facility] Awlkwmimlb[address] [place] [address]Dr. Selenaneil Tripathi CULTURE URINEon 10-08-2022 CULTURE URINE Normal [facility] Comment on above: Performed By: #### U RCX ####[facility] Lkqbwzlsmm9460 [place] [id number]. Airam Tripathi OSMOLALITYon 10-08-2022 Osmolality [Osmolality] 282 mosm/kg Normal 275-295 [facility] Comment on above: Performed By: #### O SMO ####[facility] Xlibaagrhd6507 [place] [phone]. Selenaneil Deuce CBC AUTO DIFFon 10-07-2022 BASO # 0.0 103/ul Normal 0.0-0.1 [facility] Comment on above: Performed By: #### C BC ####[facility] Pmknjrlhat1492 [place] [id number]. Airam Tripathi Basophils/100 WBC (Bld) 0.3 % Normal 0.2-2.0 [facility] Comment on above: Performed By: #### C BC ####[facility] Zxjpmbmykh[address] [place], [place] [id number]. Airam Tripathi EO # 0.2 103/ul Normal 0.0-0.7 [facility] Comment on above: Performed By: #### C BC ####[facility] Iezmzvhhua[address] [place], [place] [address]Dr. Airam Tripathi Eosinophils/100 WBC (Bld) 3.4 % Normal 0.9-7.0 [facility] Comment on above: Performed By: #### C BC ####[facility] Yscjyqszxk[address] [place], [place] [address]Dr. Airam Tripathi Erythrocyte distribution width (RBC) [Ratio] 15.2 % Critically high 11.0-15.0 [facility] Comment on above: Performed By: #### C BC ####[facility] Lcyosebbjp[address] [place], [place] [address]Dr. Airam Tripathi Hematocrit (Bld) [Volume fraction] 31.3 % Critically low 36.0-48.0 [facility] Comment on above: Performed By: #### C BC ####[facility] Maynuiuvdc[address] [place], [place] [address]Dr. Airam Tripathi Hemoglobin (Bld) [Mass/Vol] 9.9 g/dL Critically low 12.0-16.0 [facility] Comment on above: Performed By: #### C BC ####[facility] Arpachyvdk[address] [place], [place] [address]Dr. Airam Tripathi IG # 0.03 10e3/ul Normal 0.00-0.03 [facility] Comment on above: Performed By: #### C BC ####[facility] Sanrlzebjh[address] [place], [place] [address]Dr. Airam Tripathi IG % 0.4 % Normal 0.0-0.5 [facility] Comment on above: Performed By: #### C BC ####[facility] Kcugocwere6826 [place] [id number]. Airam Tripathi LYMPH # 1.3 103/ul Normal 1.2-3.8 [facility] Comment on above: Performed By: #### C BC ####[facility] Zrmislupcj3145 [place] [id number]. Airam Tripathi Lymphocytes/100 WBC (Bld) 19.0 % Critically low 20.5-60.0 [facility] Comment on above: Performed By: #### C BC ####[facility] Gwnsdhncrd67[address] [place] [address]Dr. Airam Tripathi MANUAL DIFF REQ NO Normal [facility] Comment on above: Performed By: #### C BC ####[facility] Mxhfmznpfk2668 [place] [address]Dr. Airam Tripathi MCH (RBC) [Entitic mass] 28.1 pg Normal 26.7-34.0 [facility] Comment on above: Performed By: #### C BC ####[facility] Mprjuwevbf0049 [place] [id number]. Airma Tripathi MCHC (RBC) [Mass/Vol] 31.6 g/dL Normal 29.9-35.2 [facility] Comment on above: Performed By: #### C BC ####[facility] Tnxrkiwqrf5504 [place] [id number]. Airam Tripathi MCV (RBC) [Entitic vol] 88.9 fL Normal 81.0-99.0 [facility] Comment on above: Performed By: #### C BC ####[facility] Rnoofacchl3983 [place] [id number]. Airam Tripathi MONO # 0.6 103/ul Normal 0.3-0.8 [facility] Comment on above: Performed By: #### C BC ####[facility] Pftivirdzi9114 [place] [id number]. Airam Tripathi Monocytes/100 WBC (Bld) 9.0 % Normal 1.7-12.0 [facility] Comment on above: Performed By: #### C BC ####[facility] Vzxvmzyiiu6361 [place] [id number]. Airam Tripathi NEUT # 4.5 103/ul Normal 1.4-6.5 [facility] Comment on above: Performed By: #### C BC ####[facility] Kbxydhdaul0051 [place] [id number]. Airam Tripathi Neutrophils/100 WBC (Bld) 67.9 % Normal 43.0-75.0 [facility] Comment on above: Performed By: #### C BC ####[facility] Dlvzkuefng5571 [place] [id number]. Selenaneil Deuce Platelet mean volume (Bld) [Entitic vol] 9.1 fL Critically low 9.5-13.5 [facility] Comment on above: Performed By: #### C BC ####[facility] Zbljoceftg4090 [place] [address]Dr. Airam Tripathi PLT 256 103/ul Normal 150-450 [facility] Comment on above: Performed By: #### C BC ####[facility] Xrydfwytgp8962 [place] [id number]. Selenaneil Deuce RBC 3.52 106/ul Critically low 4.20-5.40 [facility] Comment on above: Performed By: #### C BC ####[facility] Svrpqajjhq9404 [place] [id number]. Airam Tripathi WBC 6.7 103/ul Normal 4.0-11.0 [facility] Comment on above: Performed By: #### C BC ####[facility] Pybykczfvk1010 [place] [id number] Tripathi PROF 14(COMP METB)on 023 Albumin [Mass/Vol] 2.8 g/dL Critically low 3.4-5.0 [facility] Comment on above: Performed By: #### C MP ####[facility] Alvlaihdlz5678 [place] [id number] Tripathi Albumin/Globulin [Mass ratio] 0.9 {ratio} Normal [facility] Comment on above: Performed By: #### C MP ####[facility] Jwvakytqks9817 [place] [address]Dr. Airam Tripathi ALP [Catalytic activity/Vol] 118 U/L Critically high 46-116 [facility] Comment on above: Performed By: #### C MP ####[facility] Qlelikuwgr7833 [place] [address]Dr. Airam Tripathi ALT [Catalytic activity/Vol] 23 U/L Normal 14-59 [facility] Comment on above: Performed By: #### C MP ####[facility] Zqvnkcxumj7731 [place] [address]Dr. Airam Tripathi Anion gap [Moles/Vol] 12.5 mmol/L Normal [facility] Comment on above: Performed By: #### C MP ####[facility] [address]fzxaiqvbb92[address] [place], [place] [address]Dr. Airam Tripathi AST [Catalytic activity/Vol] 21 U/L Normal 15-37 [facility] Comment on above: Performed By: #### C MP ####[facility] Taeeospdlt[address] [place], [place] [address]Dr. Airam Tripathi Bilirubin [Mass/Vol] 0.4 mg/dL Normal 0.2-1.0 [facility] Comment on above: Performed By: #### C MP ####[facility] Sfgbltlzrf9[address] [place], [place] [address]Dr. Airam Deuce Calcium [Mass/Vol] 8.2 mg/dL Critically low 8.5-10.1 [facility] Comment on above: Performed By: #### C MP ####[facility] Syzqlpitiz1872 [place] [address]Dr. Airam Deuce Chloride [Moles/Vol] 99 mmol/L Normal 98-107 [facility] Comment on above: Performed By: #### C MP ####[facility] Qkdqzolyac0778 [place] [address]Dr. Airam Tripathi CO2 [Moles/Vol] 24.9 mmol/L Normal 21.0-32.0 [facility] Comment on above: Performed By: #### C MP ####[facility] Hmwbulxgme3099 [place] [id number]. Airam Tripathi Creatinine [Mass/Vol] 1.61 mg/dL Critically high 0.55-1.02 [facility] Comment on above: Performed By: #### C MP ####[facility] Cayhmrzrxp3931 [place] [id number]. Airam Deuce EGFR-AF ARGENTINE 40 mL/min/1.73m2 Critically low >=60 [facility] Comment on above: Performed By: #### C MP ####[facility] Zhiavbficn3669 [place] [address]Dr. Airam Deuce EGFR-NON AF ARGENTINE 33 mL/min/1.73m2 Critically low >=60 [facility] Comment on above: Performed By: #### C MP ####[facility] Bacvrleyva9359 [place] [address]Dr. Airam Deuce Globulin (S) [Mass/Vol] 3.2 g/dL Normal [facility] Comment on above: Performed By: #### C MP ####[facility] Bkskkwuiod6538 [place] [address]Dr. Airam Deuce Glucose [Mass/Vol] 67 mg/dL Critically low 74-106 [facility] Comment on above: Performed By: #### C MP ####[facility] Pqcnecjoga7082 [place] [address]Dr. Airam Deuce Potassium [Moles/Vol] 5.4 mmol/L Critically high 3.5-5.1 [facility] Comment on above: Performed By: #### C MP ####[facility] Septknpntp8579 [place] [address]Dr. Airam Tripathi Protein [Mass/Vol] 6.0 g/dL Critically low 6.4-8.2 [facility] Comment on above: Performed By: #### C MP ####[facility] Oiryncsbmu4999 [place] [address]Dr. Airam Tripathi Sodium [Moles/Vol] 131 mmol/L Critically low 136-145 [facility] Comment on above: Performed By: #### C MP ####[facility] Gwlfqjafjg6393 [place] [address]Dr. Airam Tripathi Urea nitrogen [Mass/Vol] 43.0 mg/dL Critically high 7.0-18.0 [facility] Comment on above: Performed By: #### C MP ####[facility] Tzvrbgfdiu624[address] [place], [place] [address]Dr. Airam Deuce Urea nitrogen/Creatinine [Mass ratio] 26.7 mg/mg Normal [facility] Comment on above: Performed By: #### C MP ####[facility] Okgmhyqgac76[address] [place], [place] [address]Dr. Airam Deuce CBC AUTO DIFFon 10-06-2022 BASO # 0.0 103/ul Normal 0.0-0.1 [facility] Comment on above: Performed By: #### C BC ####[facility] Eopoohnnkb24[address] [place], [place] [address]Dr. Selenaneil Tripathi Basophils/100 WBC (Bld) 0.3 % Normal 0.2-2.0 [facility] Comment on above: Performed By: #### C BC ####[facility] Rgezqctgsr79[address] [place], [place] [address]Dr. Airam Deuce EO # 0.2 103/ul Normal 0.0-0.7 [facility] Comment on above: Performed By: #### C BC ####[facility] Muslluijal[address] [place], [place] [address]Dr. Selenaneil Tripathi Eosinophils/100 WBC (Bld) 3.1 % Normal 0.9-7.0 [facility] Comment on above: Performed By: #### C BC ####[facility] Sryykyxidi340[address] [place], [place] [address]Dr. Airam Tripathi Erythrocyte distribution width (RBC) [Ratio] 15.0 % Normal 11.0-15.0 [facility] Comment on above: Performed By: #### C BC ####[facility] Nsbaostlij35[address] [place], [place] [address]Dr. Airam Tripathi Hematocrit (Bld) [Volume fraction] 30.9 % Critically low 36.0-48.0 [facility] Comment on above: Performed By: #### C BC ####[facility] Kmefldcfzc3593 [place] [address]Dr. Airam Tripathi Hemoglobin (Bld) [Mass/Vol] 10.1 g/dL Critically low 12.0-16.0 [facility] Comment on above: Result Comment: BIJU ENT RECIEVED 2 UNITS PRBC'S Performed By: #### C BC ####[facility] Hqchfpjkoj509[address] [place], [place] [address]Dr. Airam Tripathi IG # 0.03 10e3/ul Normal 0.00-0.03 [facility] Comment on above: Performed By: #### C BC ####[facility] Ktjpksarzs932[address] [place], [place] [address]Dr. Airam Tripathi IG % 0.4 % Normal 0.0-0.5 [facility] Comment on above: Performed By: #### C BC ####[facility] Babbjlaxkd[address] [place], [place] [address]DrKianna Tripathi LYMPH # 1.1 103/ul Critically low 1.2-3.8 [facility] Comment on above: Performed By: #### C BC ####[facility] Qxasqphyyd120[address] [place], [place] [address]DrKianna Tripathi Lymphocytes/100 WBC (Bld) 14.4 % Critically low 20.5-60.0 [facility] Comment on above: Performed By: #### C BC ####[facility] Eljaydjdif36[address] [place], [place] [address]DrKianna Tripathi MANUAL DIFF REQ NO Normal [facility] Comment on above: Performed By: #### C BC ####[facility] Bquzwnbsnt69[address] [place], [place] [address]DrKianna Tripathi MCH (RBC) [Entitic mass] 28.9 pg Normal 26.7-34.0 [facility] Comment on above: Performed By: #### C BC ####[facility] Piliqflxfo230[address] [place], [place] [address]Dr. Airam Tripathi MCHC (RBC) [Mass/Vol] 32.7 g/dL Normal 29.9-35.2 [facility] Comment on above: Performed By: #### C BC ####[facility] Ejmuczubku2549 [place] [address]DrKianna Tripathi MCV (RBC) [Entitic vol] 88.3 fL Normal 81.0-99.0 [facility] Comment on above: Performed By: #### C BC ####[facility] Fypmayjtap[address] [place], [place] [address]DrKianna Tripathi MONO # 0.6 103/ul Normal 0.3-0.8 [facility] Comment on above: Performed By: #### C BC ####[facility] Gnfqzlebsl[address] [place], [place] [address]DrKianna Tripathi Monocytes/100 WBC (Bld) 7.8 % Normal 1.7-12.0 [facility] Comment on above: Performed By: #### C BC ####[facility] Dkjtflyebq9[address] [place], [place] [address]DrKianna Tripathi NEUT # 5.5 103/ul Normal 1.4-6.5 [facility] Comment on above: Performed By: #### C BC ####[facility] Lcmyuiypjb[address] [place], [place] [address]DrKianna Tripathi Neutrophils/100 WBC (Bld) 74.0 % Normal 43.0-75.0 [facility] Comment on above: Performed By: #### C BC ####[facility] Vdoqckiuqy[address] [place], [place] [address]DrKianna Tripathi Platelet mean volume (Bld) [Entitic vol] 9.2 fL Critically low 9.5-13.5 [facility] Comment on above: Performed By: #### C BC ####[facility] Rmfsmhlsxd[address] [place], [place] [address]DrKianna Tripathi PLT 275 103/ul Normal 150-450 [facility] Comment on above: Performed By: #### C BC ####[facility] Rariknwrim[address] [place], [place] [address]DrKianna Tripathi RBC 3.50 106/ul Critically low 4.20-5.40 [facility] Comment on above: Performed By: #### C BC ####[facility] [address] [place] [address]Dr. Airam Tripathi WBC 7.4 103/ul Normal 4.0-11.0 [facility] Comment on above: Performed By: #### C BC ####[facility] Hvqqjzctbc[address] [place], [place] [address]Dr. Airam Tripathi BASO # 0.0 103/ul Normal 0.0-0.1 [facility] Comment on above: Performed By: #### C BC ####[facility] Ujcbkczfae155[address] [place], [place] [address]Dr. Airam Deuce Basophils/100 WBC (Bld) 0.4 % Normal 0.2-2.0 [facility] Comment on above: Performed By: #### C BC ####[facility] Fvxfrnwiqd232[address] [place], [place] [address]Dr. Airam Tripathi EO # 0.2 103/ul Normal 0.0-0.7 [facility] Comment on above: Performed By: #### C BC ####[facility] Zzaetbdbdk246[address] [place], [place] [address]Dr. Airam Tripathi Eosinophils/100 WBC (Bld) 4.5 % Normal 0.9-7.0 [facility] Comment on above: Performed By: #### C BC ####[facility] Jpzjamldax0701[address] [place], [place] [address]Dr. Airam Tripathi Erythrocyte distribution width (RBC) [Ratio] 15.1 % Critically high 11.0-15.0 [facility] Comment on above: Performed By: #### C BC ####[facility] Nqfuwclyvf0813[address] [place], [place] [address]Dr. Airam Tripathi Hematocrit (Bld) [Volume fraction] 23.0 % Critically low 36.0-48.0 [facility] Comment on above: Performed By: #### C BC ####[facility] Sskdjcpqwb784[address] [place], [place] [address]Dr. Airam Deuce Hemoglobin (Bld) [Mass/Vol] 7.2 g/dL Critically low 12.0-16.0 [facility] Comment on above: Performed By: #### C BC ####[facility] [address] [place] [address]Dr. Selenaneil Tripathi IG # 0.02 10e3/ul Normal 0.00-0.03 [facility] Comment on above: Performed By: #### C BC ####[facility] Ighvemyjmu[address] [place] [address]Dr. Airam Tripathi IG % 0.4 % Normal 0.0-0.5 [facility] Comment on above: Performed By: #### C BC ####[facility] Tcvhcjfekq501[address] [place], [place] [address]DrKianna Tripathi LYMPH # 1.0 103/ul Critically low 1.2-3.8 [facility] Comment on above: Performed By: #### C BC ####[facility] Joudxqwdyh25[address] [place], [place] [address]Dr. Airam Tripathi Lymphocytes/100 WBC (Bld) 22.5 % Normal 20.5-60.0 [facility] Comment on above: Performed By: #### C BC ####[facility] Fyyqyshhqj390[address] [place], [place] [address]DrKianna Selenaneil Tripathi MANUAL DIFF REQ NO Normal [facility] Comment on above: Performed By: #### C BC ####[facility] Pxvgikxjkk4930[address] [place], [place] [address]DrKianna Tripathi MCH (RBC) [Entitic mass] 28.3 pg Normal 26.7-34.0 [facility] Comment on above: Performed By: #### C BC ####[facility] Quwkxfdpuh337[address] [place], [place] [address]DrKianna Tripathi MCHC (RBC) [Mass/Vol] 31.3 g/dL Normal 29.9-35.2 [facility] Comment on above: Performed By: #### C BC ####[facility] Usgouzwepa8627[address] [place], [place] [address]DrKianna Tripathi MCV (RBC) [Entitic vol] 90.6 fL Normal 81.0-99.0 [facility] Comment on above: Performed By: #### C BC ####[facility] R[address]vggcq[address] [place] [address] Airam Tripathi MONO # 0.5 103/ul Normal 0.3-0.8 [facility] Comment on above: Performed By: #### C BC ####[facility] Tzutxlyegs75[address] [place] [address]DrKianna Tripathi Monocytes/100 WBC (Bld) 9.7 % Normal 1.7-12.0 [facility] Comment on above: Performed By: #### C BC ####[facility] Cihdtbnbzf34[address] [place], [place] [address]DrKianna Airam Tripathi NEUT # 2.9 103/ul Normal 1.4-6.5 [facility] Comment on above: Performed By: #### C BC ####[facility] Qmxvysqvix694[address] [place], [place] [address]DrKianna Tripathi Neutrophils/100 WBC (Bld) 62.5 % Normal 43.0-75.0 [facility] Comment on above: Performed By: #### C BC ####[facility] Tgkaflpxnv087[address] [place], [place] [address]DrKianna Selenaneil Tripathi Platelet mean volume (Bld) [Entitic vol] 8.9 fL Critically low 9.5-13.5 [facility] Comment on above: Performed By: #### C BC ####[facility] Ftxxmzogdm7728[address] [place], [place] [address]Dr. Airam Trpiathi PLT 210 103/ul Normal 150-450 [facility] Comment on above: Performed By: #### C BC ####[facility] Nunmwawysr542[address] [place], [place] [address]DrKianna Tripathi RBC 2.54 106/ul Critically low 4.20-5.40 [facility] Comment on above: Performed By: #### C BC ####[facility] Bxfmwzmoxl1532[address] [place], [place] [address]DrKianna Tripathi WBC 4.6 103/ul Normal 4.0-11.0 [facility] Comment on above: Performed By: #### C BC ####[facility] S[address]vldxbqw[address] [place] [address]Dr. Airam Tripathi OSMOLALITYon 10-06-2022 Osmolality [Osmolality] 279 mosm/kg Normal 275-295 [facility] Comment on above: Performed By: #### O SMO ####[facility] Ykczmowupc786[address] [place], [place] [address]Dr. Airam Tripathi POINT OF CARE GLUCOSEon 09-24 Glucose [Mass/Vol] 72 mg/dL Critically low 74-106 [facility] Comment on above: Performed By: #### P OCGLUC ####[facility] Yulguubcxk315[address] [place], [place] [address]Dr. Airam Tripathi Glucose [Mass/Vol] 102 mg/dL Normal 74-106 [facility] Comment on above: Performed By: #### P OCGLUC ####[facility] Oxwglbzxmm5585[address] [place], [place] [address]Dr. Airam Tripathi Glucose [Mass/Vol] 165 mg/dL Critically high 74-106 [facility] Comment on above: Performed By: #### P OCGLUC ####[facility] Oihcoqzxgu8310[address] [place], [place] [address]DrKianna Tripathi PROF 14(COMP METB)on 023 Albumin [Mass/Vol] 2.6 g/dL Critically low 3.4-5.0 [facility] Comment on above: Performed By: #### C MP ####[facility] Xtvlvjfkpl[address] [place] [address]Dr. Airam Tripathi Albumin/Globulin [Mass ratio] 0.9 {ratio} Normal [facility] Comment on above: Performed By: #### C MP ####[facility] Hlzjxnecsg9867[address] [place], [place] [address]Dr. Airam Tripathi ALP [Catalytic activity/Vol] 107 U/L Normal 46-116 [facility] Comment on above: Performed By: #### C MP ####[facility] Xyyidrueyo3923[address] [place], [place] [address]Dr. Airam Tripathi ALT [Catalytic activity/Vol] 22 U/L Normal 14-59 [facility] Comment on above: Performed By: #### C MP ####[facility] Iv[address]dzkfbql[address] [place] [address]Dr. Selenaneil Deuce Anion gap [Moles/Vol] 10.0 mmol/L Normal [facility] Comment on above: Performed By: #### C MP ####[facility] Hjcspvwjqw232[address] [place], [place] [address]Dr. Airam Tripathi AST [Catalytic activity/Vol] 19 U/L Normal 15-37 [facility] Comment on above: Performed By: #### C MP ####[facility] Shhbpmtpis020[address] [place], [place] [address]Dr. Airam Tripathi Bilirubin [Mass/Vol] 0.2 mg/dL Normal 0.2-1.0 [facility] Comment on above: Performed By: #### C MP ####[facility] Uqhpjiodyj2788[address] [place], [place] [address]Dr. Airam Tripathi Calcium [Mass/Vol] 8.1 mg/dL Critically low 8.5-10.1 [facility] Comment on above: Performed By: #### C MP ####[facility] Fuxkpyepag375[address] [place], [place] [address]Dr. Airam Tripathi Chloride [Moles/Vol] 100 mmol/L Normal 98-107 [facility] Comment on above: Performed By: #### C MP ####[facility] Vcntxeyvua965[address] [place], [place] [address]Dr. Airam Tripathi CO2 [Moles/Vol] 26.2 mmol/L Normal 21.0-32.0 [facility] Comment on above: Performed By: #### C MP ####[facility] Aovujsjvom879[address] [place], [place] [address]Dr. Airam Tripathi Creatinine [Mass/Vol] 1.90 mg/dL Critically high 0.55-1.02 [facility] Comment on above: Performed By: #### C MP ####[facility] Uwgnfshqiw439[address] [place], [place] [address]Dr. Airam Tripathi EGFR-AF ARGENTINE 33 mL/min/1.73m2 Critically low >=60 [facility] Comment on above: Performed By: #### C MP ####[facility] H[address]fpqoemm[address] [place] [address]Dr. Airam Deuce EGFR-NON AF ARGENTINE 27 mL/min/1.73m2 Critically low >=60 [facility] Comment on above: Performed By: #### C MP ####[facility] Xbvqgkuwpw496[address] [place], [place] [address]Dr. Airam Deuce Globulin (S) [Mass/Vol] 2.8 g/dL Normal [facility] Comment on above: Performed By: #### C MP ####[facility] Afzoohquyh6320[address] [place], [place] [address]Dr. Selenaneil Deuce Glucose [Mass/Vol] 115 mg/dL Critically high 74-106 [facility] Comment on above: Performed By: #### C MP ####[facility] Qjdokzgvuu789[address] [place], [place] [address]Dr. Airam Tripathi Potassium [Moles/Vol] 5.2 mmol/L Critically high 3.5-5.1 [facility] Comment on above: Performed By: #### C MP ####[facility] Glpkqeywok000[address] [place], [place] [address]Dr. Selenaneil Deuce Protein [Mass/Vol] 5.4 g/dL Critically low 6.4-8.2 [facility] Comment on above: Performed By: #### C MP ####[facility] Rhbebnvfvx8028[address] [place], [place] [address]Dr. Airam Deuce Sodium [Moles/Vol] 131 mmol/L Critically low 136-145 [facility] Comment on above: Performed By: #### C MP ####[facility] Zuqxkeznpe423[address] [place], [place] [address]Dr. Airam Tripathi Urea nitrogen [Mass/Vol] 41.0 mg/dL Critically high 7.0-18.0 [facility] Comment on above: Performed By: #### C MP ####[facility] Epveanebgm145[address] [place], [place] [address]Dr. Airam Tripathi Urea nitrogen/Creatinine [Mass ratio] 21.6 mg/mg Normal [facility] Comment on above: Performed By: #### C MP ####[facility] Iwqbwbjcvi235[address] [place], [place] [address]Dr. Airam Tripathi TYPE AND SCREENon 10-06-2022 TYPE AND SCREEN Negative Normal [facility] Comment on above: Performed By: #### T NS ####[facility] Ztdkontsgd501[address] [place], [place] [address]Dr. Airam Tripathi CBC AUTO DIFFon 10-05-2022 BASO # 0.0 103/ul Normal 0.0-0.1 [facility] Comment on above: Performed By: #### C BC ####[facility] Qajlviivdf786[address] [place], [place] [address]Dr. Airam Triapthi Basophils/100 WBC (Bld) 0.5 % Normal 0.2-2.0 [facility] Comment on above: Performed By: #### C BC ####[facility] Lbfsfkvxdi764[address] [place], [place] [address]Dr. Airam Tripathi EO # 0.2 103/ul Normal 0.0-0.7 [facility] Comment on above: Performed By: #### C BC ####[facility] Kimdbbevgq009[address] [place], [place] [address]Dr. Airam Tripathi Eosinophils/100 WBC (Bld) 3.2 % Normal 0.9-7.0 [facility] Comment on above: Performed By: #### C BC ####[facility] Lkyshkotzr359[address] [place], [place] [address]Dr. Airam Tripathi Erythrocyte distribution width (RBC) [Ratio] 15.2 % Critically high 11.0-15.0 [facility] Comment on above: Performed By: #### C BC ####[facility] Pndmnjmuxy880[address] [place], [place] [address]Dr. Airam Tripathi Hematocrit (Bld) [Volume fraction] 24.7 % Critically low 36.0-48.0 [facility] Comment on above: Performed By: #### C BC ####[facility] Osh[address]jhwmg[address] [place] [address]Dr. Airam Tripathi Hemoglobin (Bld) [Mass/Vol] 7.6 g/dL Critically low 12.0-16.0 [facility] Comment on above: Performed By: #### C BC ####[facility] K[address]twqlnpt[address] [place] [address]Dr. Airam Tripathi IG # 0.02 10e3/ul Normal 0.00-0.03 [facility] Comment on above: Performed By: #### C BC ####[facility] K[address]uxrvjghk26[address] [place] [address]Dr. Airam Tripathi IG % 0.3 % Normal 0.0-0.5 [facility] Comment on above: Performed By: #### C BC ####[facility] Jvbfmazjwz65[address] [place] [address]Dr. Airam Deuce LYMPH # 1.1 103/ul Critically low 1.2-3.8 [facility] Comment on above: Performed By: #### C BC ####[facility] Tdhkntiwrn380[address] [place] [address]Dr. Airam eDuce Lymphocytes/100 WBC (Bld) 18.4 % Critically low 20.5-60.0 [facility] Comment on above: Performed By: #### C BC ####[facility] Zkiyynfeke317[address] [place], [place] [address]Dr. Airam Tripathi MANUAL DIFF REQ NO Normal [facility] Comment on above: Performed By: #### C BC ####[facility] Mzdsmqiuir230[address] [place] [address]Dr. Airam Tripathi MCH (RBC) [Entitic mass] 28.5 pg Normal 26.7-34.0 [facility] Comment on above: Performed By: #### C BC ####[facility] Ruteacdaso0923[address] [place], [place] [address]Dr. Airam Deuce MCHC (RBC) [Mass/Vol] 30.8 g/dL Normal 29.9-35.2 [facility] Comment on above: Performed By: #### C BC ####[facility] Miulzduskl796[address] [place], [place] [address]Dr. Airam Deuce MCV (RBC) [Entitic vol] 92.5 fL Normal 81.0-99.0 [facility] Comment on above: Performed By: #### C BC ####[facility] Inlthimxlw[address] [place] [address]Dr. Airam Tripathi MONO # 0.6 103/ul Normal 0.3-0.8 [facility] Comment on above: Performed By: #### C BC ####[facility] Wurykzprcj605[address] [place], [place] [address]Dr. Airam Deuce Monocytes/100 WBC (Bld) 10.0 % Normal 1.7-12.0 [facility] Comment on above: Performed By: #### C BC ####[facility] Gkuejeqvwn0023[address] [place], [place] [address]Dr. Airam Deuce NEUT # 4.0 103/ul Normal 1.4-6.5 [facility] Comment on above: Performed By: #### C BC ####[facility] Jkeqlrevbu305[address] [place], [place] [address]Dr. Selenaneil Tripathi Neutrophils/100 WBC (Bld) 67.6 % Normal 43.0-75.0 [facility] Comment on above: Performed By: #### C BC ####[facility] Qkrenervwr805[address] [place], [place] [address]Dr. Airam Deuce Platelet mean volume (Bld) [Entitic vol] 8.8 fL Critically low 9.5-13.5 [facility] Comment on above: Performed By: #### C BC ####[facility] Qdqmyddrzp3614[address] [place], [place] [address]Dr. Airam Deuce PLT 226 103/ul Normal 150-450 [facility] Comment on above: Performed By: #### C BC ####[facility] Xdsespipoj836[address] [place], [place] [address]Dr. Selenaneil Deuce RBC 2.67 106/ul Critically low 4.20-5.40 [facility] Comment on above: Performed By: #### C BC ####[facility] Vyzkmjeubf0137[address] [place], [place] [address]Dr. Airam Tripathi WBC 5.9 103/ul Normal 4.0-11.0 [facility] Comment on above: Performed By: #### C BC ####[facility] Eeuxksfwzf[address] [place] [address]Dr. Airam Tripathi Covid-19 PCR (CVDTB)on 09-24 SARS-CoV-2 (COVID-19) RNA MIKE+probe Ql (Unsp spec) Not detected Normal NOT DETECTED [facility] Comment on above: Result Comment: When [...] for this test is supported by the [employer] of [employer] and Human Service's declaration that [...] be used). Performed By: #### C VDTBH ####[facility] Em[address]wwyoyp4[address] [place] [address]Dr. Airam Tripathi MAGNESIUMon 10-05-2022 Magnesium [Mass/Vol] 1.7 mg/dL Critically low 1.8-2.4 [facility] Comment on above: Performed By: #### M G, CMP ####[facility] Smcyakjkqb260[address] [place] [address]DrKianna Airam Deuce POINT OF CARE GLUCOSEon 09-24 Glucose [Mass/Vol] 92 mg/dL Normal 74-106 [facility] Comment on above: Performed By: #### P OCGLUC ####[facility] Xhbrofahhx[address] [place] [address]DrKianna Airam Deuce PROF 14(COMP METB)on 023 Albumin [Mass/Vol] 2.9 g/dL Critically low 3.4-5.0 [facility] Comment on above: Performed By: #### Nadya Calderon, CMP ####[facility] Ymwbrcgcha19[address] [place] [address]Dr. Airam Tripathi Albumin/Globulin [Mass ratio] 0.9 {ratio} Normal [facility] Comment on above: Performed By: #### Nadya Calderon, CMP ####[facility] Ndxbfttqtq4[address] [place] [address]Dr. Airam Tripathi ALP [Catalytic activity/Vol] 122 U/L Critically high 46-116 [facility] Comment on above: Performed By: #### Nadya Calderon, CMP ####[facility] Lnrbnwzjkf920[address] [place], [place] [address]Dr. Airam Tripathi ALT [Catalytic activity/Vol] 24 U/L Normal 14-59 [facility] Comment on above: Performed By: #### Nadya Calderon, CMP ####[facility] Umrrergomd532[address] [place], [place] [address]Dr. Airam Tripathi Anion gap [Moles/Vol] 13.1 mmol/L Normal [facility] Comment on above: Performed By: #### Nadya Calderon, CMP ####[facility] Vllavropng185[address] [place], [place] [address]Dr. Airam Tripathi AST [Catalytic activity/Vol] 21 U/L Normal 15-37 [facility] Comment on above: Performed By: #### Nadya Calderon, CMP ####[facility] Noknzdaswy360[address] [place], [place] [address]Dr. Airam Tripathi Bilirubin [Mass/Vol] 0.2 mg/dL Normal 0.2-1.0 [facility] Comment on above: Performed By: #### Nadya Calderon, CMP ####[facility] Mymfllhwvy565[address] [place], [place] [address]Dr. Airam Tripathi Calcium [Mass/Vol] 8.4 mg/dL Critically low 8.5-10.1 [facility] Comment on above: Performed By: #### Nadya Calderon, CMP ####[facility] Lfhulwfvkt910[address] [place], [place] [address]Dr. Airam Tripathi Chloride [Moles/Vol] 102 mmol/L Normal 98-107 [facility] Comment on above: Performed By: #### Nadya Calderon, CMP ####[facility] Suaohxcwwn511[address] [place], [place] [address]Dr. Airam Tripathi CO2 [Moles/Vol] 23.2 mmol/L Normal 21.0-32.0 [facility] Comment on above: Performed By: #### Nadya Calderon, CMP ####[facility] Pbvreovbdk27039[address] [place], [place] [address]Dr. Airam Tripathi Creatinine [Mass/Vol] 1.96 mg/dL Critically high 0.55-1.02 [facility] Comment on above: Performed By: #### Nadya Calderon, CMP ####[facility] Pszsuapeqe0812[address] [place], [place] [address]Dr. Airam Tripathi EGFR-AF ARGENTINE 32 mL/min/1.73m2 Critically low >=60 [facility] Comment on above: Performed By: #### Nadya Calderon, CMP ####[facility] Zoffpnehxt816[address] [place], [place] [address]Dr. Airam Tripathi EGFR-NON AF ARGENTINE 26 mL/min/1.73m2 Critically low >=60 [facility] Comment on above: Performed By: #### Nadya Calderon, CMP ####[facility] Lfqdrsanag845[address] [place], [place] [address]Dr. Airam Tripathi Globulin (S) [Mass/Vol] 3.2 g/dL Normal [facility] Comment on above: Performed By: #### M Yumiko, CMP ####[facility] Smmjwvfhfv8712[address] [place], [place] [address]Dr. Airam Tripathi Glucose [Mass/Vol] 68 mg/dL Critically low 74-106 [facility] Comment on above: Performed By: #### Nadya Calderon, CMP ####[facility] Agncnobmzg689[address] [place], [place] [address]Dr. Airam Tripathi Potassium [Moles/Vol] 5.3 mmol/L Critically high 3.5-5.1 [facility] Comment on above: Performed By: #### M Yumiko, CMP ####[facility] Uxfrbzxxhn5812[address] [place], [place] [address]Dr. Airam Tripathi Protein [Mass/Vol] 6.1 g/dL Critically low 6.4-8.2 [facility] Comment on above: Performed By: #### M G, CMP ####[facility] Rorktfpyhl4514[address] [place], [place] [address]Dr. Airam Tripathi Sodium [Moles/Vol] 133 mmol/L Critically low 136-145 [facility] Comment on above: Performed By: #### M G, CMP ####[facility] Kkoahdooqj523[address] [place], [place] [address]Dr. Airam Tripathi Urea nitrogen [Mass/Vol] 39.0 mg/dL Critically high 7.0-18.0 [facility] Comment on above: Performed By: #### M Yumiko, CMP ####[facility] Zpijvcznay514[address] [place], [place] [address]Dr. Airam Tripathi Urea nitrogen/Creatinine [Mass ratio] 19.9 mg/mg Normal [facility] Comment on above: Performed By: #### M G, CMP ####[facility] Ojbtslidkv497[address] [place], [place] [address]Dr. Airam Tripathi SODIUM RANDOM URINEon 2022 Sodium (U) [Moles/Vol] 37 mmol/L Normal 30-90 [facility] Comment on above: Performed By: #### N AU ####[facility] Hnaqaptbjr217[address] [place], [place] [address]Dr. Airam Tripathi UA RANDOM W/MICROSCOPICon BACTERIA TRACE Abnormal NONE SEEN [facility] Comment on above: Performed By: #### U AMIC ####[facility] Suqrrcjcly524[address] [place], [place] [address]Dr. Airam Tripathi Bilirubin Ql (U) Negative Normal NEGATIVE [facility] Comment on above: Performed By: #### U AMIC ####[facility] Piyxjygzax607[address] [place], [place] [address]Dr. Airam Tripathi CAST SEEN Abnormal NONE SEEN [facility] Comment on above: Performed By: #### U AMIC ####[facility] Zthzhgpcbx14[address] [place] [address]Dr. Airam Tripathi Clarity (U) CLEAR Normal CLEAR [facility] Comment on above: Performed By: #### U AMIC ####[facility] Oiklxbiuoj4203 [place] [address]Dr. Airam Tripathi Color (U) YELLOW Normal YELLOW [facility] Comment on above: Performed By: #### U AMIC ####[facility] Wcyztdwgoy4575[address] [place], [place] [address]Dr. Airam Tripathi Crystals LM Nom (Urine sed) NONE SEEN Normal NONE SEEN [facility] Comment on above: Performed By: #### U AMIC ####[facility] Kypromkmww245[address] [place], [place] [address]Dr. Airam Tripathi Epithelial cells LM Ql (Urine sed) RARE Normal NONE SEEN /RARE [facility] Comment on above: Performed By: #### U AMIC ####[facility] Okofooyjur54[address] [place], [place] [address]Dr. Airam Tripathi Glucose Ql (U) Negative Normal NEGATIVE [facility] Comment on above: Performed By: #### U AMIC ####[facility] Vkehmhqxfe930[address] [place], [place] [address]Dr. Airam Tripathi Hemoglobin Ql (U) Negative Normal NEGATIVE [facility] Comment on above: Performed By: #### U AMIC ####[facility] Fdpdjrpetk[address] [place], [place] [address]Dr. Airam Tripathi HYALINE CAST RARE Normal [facility] Comment on above: Performed By: #### U AMIC ####[facility] Bccuqbbzie0520[address] [place], [place] [address]Dr. Airam Tripathi Ketones Ql (U) TRACE Abnormal NEGATIVE [facility] Comment on above: Performed By: #### U AMIC ####[facility] Cchyngkxhg4428[address] [place], [place] [address]Dr. Airam Tripathi LEUKOCYTES Negative Normal NEGATIVE [facility] Comment on above: Performed By: #### U AMIC ####[facility] Hfgcwrkand20[address] [place], [place] [address]Dr. Airam Tripathi MUCOUS NONE SEEN Normal NONE SEEN [facility] Comment on above: Performed By: #### U AMIC ####[facility] O[address]fsauasu[address] [place] [address]Dr. Airam Tripathi Nitrite Ql (U) Negative Normal NEGATIVE [facility] Comment on above: Performed By: #### U AMIC ####[facility] Xnfkujljct[address] [place] [address]Dr. Airam Tripathi pH (U) 5.0 [pH] Normal 5-9 [facility] Comment on above: Performed By: #### U AMIC ####[facility] Rqcnghlkaf68[address] [place], [place] [address]Dr. Airam Tripathi RBC 0-2 Normal 0-2 [facility] Comment on above: Performed By: #### U AMIC ####[facility] Lxhgkhpvxm9[address] [place], [place] [address]Dr. Airam Tripathi SPEC GRAVITY 1.015 Normal 1.005-<=1. 025 [facility] Comment on above: Performed By: #### U AMIC ####[facility] Naphclxtng[address] [place], [place] [address]Dr. Airam Tripathi UA PROTEIN Negative Normal NEGATIVE/ TRACE [facility] Comment on above: Performed By: #### U AMIC ####[facility] Vwsronmryj[address] [place] [address]Dr. Airam Tripathi Urobilinogen Qn (U) 0.2 {Ligia'U}/dL Normal 0.2 - 1. 0 [facility] Comment on above: Performed By: #### U AMIC ####[facility] Wodaqoytrs[address] [place], [place] [address]Dr. Airam Tripathi WBC NONE SEEN Normal NONE SEEN [facility] Comment on above: Performed By: #### U AMIC ####[facility] [address]uzsstzz[address] [place] [address]Dr. Airam Tripathi CBC AUTO DIFFon 10-04-2022 BASO # 0.0 103/ul Normal 0.0-0.1 [facility] Comment on above: Performed By: #### C BC ####[facility] Pctugndrin68[address] [place] [id number]. Airam Tripathi Basophils/100 WBC (Bld) 0.3 % Normal 0.2-2.0 [facility] Comment on above: Performed By: #### C BC ####[facility] Eqbdogmuqc833[address] [place], [place] [address]Dr. Airam Tripathi EO # 0.2 103/ul Normal 0.0-0.7 [facility] Comment on above: Performed By: #### C BC ####[facility] Povovdvmhb609[address] [place], [place] [address]Dr. Airam Tripathi Eosinophils/100 WBC (Bld) 3.2 % Normal 0.9-7.0 [facility] Comment on above: Performed By: #### C BC ####[facility] Ivfdmtquli3887[address] [place], [place] [address]Dr. Airam Tripathi Erythrocyte distribution width (RBC) [Ratio] 15.1 % Critically high 11.0-15.0 [facility] Comment on above: Performed By: #### C BC ####[facility] Oydmulzcnv8036[address] [place], [place] [address]Dr. Airam Tripathi Hematocrit (Bld) [Volume fraction] 27.6 % Critically low 36.0-48.0 [facility] Comment on above: Performed By: #### C BC ####[facility] Hsmiwspvjp8870[address] [place], [place] [address]Dr. Airam Tripathi Hemoglobin (Bld) [Mass/Vol] 8.7 g/dL Critically low 12.0-16.0 [facility] Comment on above: Performed By: #### C BC ####[facility] Uqoeijqtim0168[address] [place], [place] [address]Dr. Airam Tripathi IG # 0.03 10e3/ul Normal 0.00-0.03 [facility] Comment on above: Performed By: #### C BC ####[facility] Qdwiwzkjrs366[address] [place], [place] [address]Dr. Airam Tripathi IG % 0.4 % Normal 0.0-0.5 [facility] Comment on above: Performed By: #### C BC ####[facility] [address]fcsybbk[address] [place] [id number]. Airam Deuce LYMPH # 1.2 103/ul Normal 1.2-3.8 [facility] Comment on above: Performed By: #### C BC ####[facility] Syvifxizrf2174 [place] [id number]. Airam Tripathi Lymphocytes/100 WBC (Bld) 16.4 % Critically low 20.5-60.0 [facility] Comment on above: Performed By: #### C BC ####[facility] Pcpfrdtgzt2394 [place] [address]Dr. Airam Tripathi MANUAL DIFF REQ NO Normal [facility] Comment on above: Performed By: #### C BC ####[facility] Xsjexparse799[address] [place], [place] [address]Dr. Airam Tripathi MCH (RBC) [Entitic mass] 28.5 pg Normal 26.7-34.0 [facility] Comment on above: Performed By: #### C BC ####[facility] Wxednmimuu3418[address] [place], [place] [address]Dr. Selenaneil Tripathi MCHC (RBC) [Mass/Vol] 31.5 g/dL Normal 29.9-35.2 [facility] Comment on above: Performed By: #### C BC ####[facility] Kmqdjwhuje508[address] [place], [place] [address]Dr. Airam Tripathi MCV (RBC) [Entitic vol] 90.5 fL Normal 81.0-99.0 [facility] Comment on above: Performed By: #### C BC ####[facility] Dzgyilbiea614[address] [place], [place] [address]Dr. Airam Tripathi MONO # 0.5 103/ul Normal 0.3-0.8 [facility] Comment on above: Performed By: #### C BC ####[facility] Ahjhoczjpk7306 [place] [id number]. Airam Tripathi Monocytes/100 WBC (Bld) 7.3 % Normal 1.7-12.0 [facility] Comment on above: Performed By: #### C BC ####[facility] Suabtmcbqd3206 [place] [id number]. Airam Tripathi NEUT # 5.4 103/ul Normal 1.4-6.5 [facility] Comment on above: Performed By: #### C BC ####[facility] Qovfxtbbws4702 [place] [id number]. Airam Tripathi Neutrophils/100 WBC (Bld) 72.4 % Normal 43.0-75.0 [facility] Comment on above: Performed By: #### C BC ####[facility] Bxmdnemrdv0301 [place] [address]Dr. Airam Tripathi Platelet mean volume (Bld) [Entitic vol] 9.1 fL Critically low 9.5-13.5 [facility] Comment on above: Performed By: #### C BC ####[facility] Ylmwttjarc2762 [place] [address]Dr. Airam Tripathi PLT 304 103/ul Normal 150-450 [facility] Comment on above: Performed By: #### C BC ####[facility] Ssddsigtar7624 [place] [address]Dr. Airam Tripathi RBC 3.05 106/ul Critically low 4.20-5.40 [facility] Comment on above: Performed By: #### C BC ####[facility] Inwbudpzqe1723 [place] [address]Dr. Airam Tripathi WBC 7.4 103/ul Normal 4.0-11.0 [facility] Comment on above: Performed By: #### C BC ####[facility] Udlximglhs9329 [place] [address]Dr. Airam Tripathi PROF 14(COMP METB)on 023 Albumin [Mass/Vol] 3.3 g/dL Critically low 3.4-5.0 [facility] Comment on above: Performed By: #### C MP ####[facility] Daqkclcibz8269 [place] [address]Dr. Airam Tripathi Albumin/Globulin [Mass ratio] 0.9 {ratio} Normal [facility] Comment on above: Performed By: #### C MP ####[facility] Zcvxaiishm5720 [place] [address]Dr. Airam Tripathi ALP [Catalytic activity/Vol] 127 U/L Critically high 46-116 [facility] Comment on above: Performed By: #### C MP ####[facility] Xcferhapaa4988 [place] [address]Dr. Airam Tripathi ALT [Catalytic activity/Vol] 29 U/L Normal 14-59 [facility] Comment on above: Performed By: #### C MP ####[facility] Dlnpbhiabl9585[address] [place], [place] [address]Dr. Airam Tripathi Anion gap [Moles/Vol] 14.6 mmol/L Normal [facility] Comment on above: Performed By: #### C MP ####[facility] Hlmdbaysdx055[address] [place], [place] [address]Dr. Airam Tripathi AST [Catalytic activity/Vol] 28 U/L Normal 15-37 [facility] Comment on above: Performed By: #### C MP ####[facility] Dlevileidy1826[address] [place], [place] [address]Dr. Airam Tripathi Bilirubin [Mass/Vol] 0.3 mg/dL Normal 0.2-1.0 [facility] Comment on above: Performed By: #### C MP ####[facility] Kbrfkvboyk457[address] [place], [place] [address]Dr. Airam Tripathi Calcium [Mass/Vol] 8.9 mg/dL Normal 8.5-10.1 [facility] Comment on above: Performed By: #### C MP ####[facility] Obptdpqlyi318[address] [place], [place] [address]Dr. Airam Tripathi Chloride [Moles/Vol] 99 mmol/L Normal 98-107 [facility] Comment on above: Performed By: #### C MP ####[facility] Preiapecgo396[address] [place], [place] [address]Dr. Airam Tripathi CO2 [Moles/Vol] 25.1 mmol/L Normal 21.0-32.0 [facility] Comment on above: Performed By: #### C MP ####[facility] Wxclqjmvnh1480 [place] [id number]. Airam Tripathi Creatinine [Mass/Vol] 1.42 mg/dL Critically high 0.55-1.02 [facility] Comment on above: Performed By: #### C MP ####[facility] Scddeehdvk7729 [place] [id number]. Airam Tripathi EGFR-AF ARGENTINE 46 mL/min/1.73m2 Critically low >=60 [facility] Comment on above: Performed By: #### C MP ####[facility] Ucmokusuzw6181 [place] [id number]. Airam Tripathi EGFR-NON AF ARGENTINE 38 mL/min/1.73m2 Critically low >=60 [facility] Comment on above: Performed By: #### C MP ####[facility] Nssvoyouyj7721 [place] [address]Dr. Airam Tripathi Globulin (S) [Mass/Vol] 3.6 g/dL Normal [facility] Comment on above: Performed By: #### C MP ####[facility] Shwlmxpghq3299 [place] [address]Dr. Airam Tripathi Glucose [Mass/Vol] 79 mg/dL Normal 74-106 [facility] Comment on above: Performed By: #### C MP ####[facility] Ahjzygnkbc6559 [place] [address]Dr. Airam Tripathi Potassium [Moles/Vol] 5.7 mmol/L Critically high 3.5-5.1 [facility] Comment on above: Performed By: #### C MP ####[facility] Unqmjhtdje9561 [place] [id number]. Airam Tripathi Protein [Mass/Vol] 6.9 g/dL Normal 6.4-8.2 [facility] Comment on above: Performed By: #### C MP ####[facility] Pullcqcjzf0724 [place] [phone]. Airam Tripathi Sodium [Moles/Vol] 133 mmol/L Critically low 136-145 [facility] Comment on above: Performed By: #### C MP ####[facility] Vktzpgzooe0863 [place] [address]Dr. Airam Tripathi Urea nitrogen [Mass/Vol] 35.0 mg/dL Critically high 7.0-18.0 [facility] Comment on above: Performed By: #### C MP ####[facility] Bdbarmftxg404[address] [place], [place] [address]Dr. Airam Tripathi Urea nitrogen/Creatinine [Mass ratio] 24.6 mg/mg Normal [facility] Comment on above: Performed By: #### C MP ####[facility] Jefylamfgn6714[address] [place], [place] [address]Dr. Airam Tripathi OSMOLALITYon 10-02-2022 Osmolality [Osmolality] 277 mosm/kg Normal 275-295 [facility] Comment on above: Performed By: #### O SMO ####[facility] Aywmzvbjfs1260[address] [place], [place] [address]Dr. Airam Deuce CBC AUTO DIFFon 09-29-2022 BASO # 0.0 103/ul Normal 0.0-0.1 [facility] Comment on above: Performed By: #### C BC ####[facility] Myaydighqn304293 [address] [place], [place] [address]Dr. Airam Deuce Basophils/100 WBC (Bld) 0.5 % Normal 0.2-2.0 [facility] Comment on above: Performed By: #### C BC ####[facility] Vdbwummimn447793 [address] [place], [place] [address]Dr. Airam Tripathi EO # 0.2 103/ul Normal 0.0-0.7 [facility] Comment on above: Performed By: #### C BC ####[facility] Chrjfirjwq987[address] [place], [place] [address]Dr. Airam Deuce Eosinophils/100 WBC (Bld) 3.2 % Normal 0.9-7.0 [facility] Comment on above: Performed By: #### C BC ####[facility] Wjeqbwzlri373493 [address] [place], [place] [address]Dr. Selenaneil Tripathi Erythrocyte distribution width (RBC) [Ratio] 15.1 % Critically high 11.0-15.0 [facility] Comment on above: Performed By: #### C BC ####[facility] Spvkzqzbod3432 [place] [address]Dr. Airam Tripathi Hematocrit (Bld) [Volume fraction] 26.2 % Critically low 36.0-48.0 [facility] Comment on above: Performed By: #### C BC ####[facility] Slemyncuna6306 [place] [address]Dr. Airam Deuce Hemoglobin (Bld) [Mass/Vol] 8.1 g/dL Critically low 12.0-16.0 [facility] Comment on above: Performed By: #### C BC ####[facility] Vavdueuwob09[address] [place], [place] [address]Dr. Airam Tripathi IG # 0.02 10e3/ul Normal 0.00-0.03 [facility] Comment on above: Performed By: #### C BC ####[facility] Irhpvkldvh785[address] [place], [place] [address]Dr. Airam Tripathi IG % 0.4 % Normal 0.0-0.5 [facility] Comment on above: Performed By: #### C BC ####[facility] Cpimwzhujs8699[address] [place], [place] [address]DrKianna Selenaneil Tripathi LYMPH # 1.3 103/ul Normal 1.2-3.8 [facility] Comment on above: Performed By: #### C BC ####[facility] Vkjssitrts6826[address] [place], [place] [address]DrKianna Tripathi Lymphocytes/100 WBC (Bld) 22.6 % Normal 20.5-60.0 [facility] Comment on above: Performed By: #### C BC ####[facility] Xgfcegfagc433[address] [place], [place] [address]DrKianna Selenaneil Tripathi MANUAL DIFF REQ NO Normal [facility] Comment on above: Performed By: #### C BC ####[facility] Aepgtlhpyd4833[address] [place], [place] [address]DrKianna Tripathi MCH (RBC) [Entitic mass] 28.0 pg Normal 26.7-34.0 [facility] Comment on above: Performed By: #### C BC ####[facility] Kopuhfjtqo0914 [place] [id number]. Airam Tripathi MCHC (RBC) [Mass/Vol] 30.9 g/dL Normal 29.9-35.2 [facility] Comment on above: Performed By: #### C BC ####[facility] Osrcxugvak6250 [place] [phone] Tripathi MCV (RBC) [Entitic vol] 90.7 fL Normal 81.0-99.0 [facility] Comment on above: Performed By: #### C BC ####[facility] Fduhzzrncx2310 [place] [id number] Tripathi MONO # 0.5 103/ul Normal 0.3-0.8 [facility] Comment on above: Performed By: #### C BC ####[facility] Hruxtjceot5425 [place] [address]DrKianna Tripathi Monocytes/100 WBC (Bld) 9.6 % Normal 1.7-12.0 [facility] Comment on above: Performed By: #### C BC ####[facility] Wfqvdscmcf[address] [place], [place] [id number] Tripathi NEUT # 3.6 103/ul Normal 1.4-6.5 [facility] Comment on above: Performed By: #### C BC ####[facility] Ukifjiqucf845[address] [place], [place] [id number] Tripathi Neutrophils/100 WBC (Bld) 63.7 % Normal 43.0-75.0 [facility] Comment on above: Performed By: #### C BC ####[facility] Ornwvhnjdt2791 [place] [phone] Tripathi Platelet mean volume (Bld) [Entitic vol] 9.4 fL Critically low 9.5-13.5 [facility] Comment on above: Performed By: #### C BC ####[facility] Ipcjghasyb5113 [place] [phone] Tripathi PLT 258 103/ul Normal 150-450 [facility] Comment on above: Performed By: #### C BC ####[facility] Ubbsvygapg7045 [place] [address]Dr. Airam Tripathi RBC 2.89 106/ul Critically low 4.20-5.40 [facility] Comment on above: Performed By: #### C BC ####[facility] Hruaypsveb4633 [place] [phone]. Airam Tripathi WBC 5.6 103/ul Normal 4.0-11.0 [facility] Comment on above: Performed By: #### C BC ####[facility] Tctifvvhnp7010 [place] [address]Dr. Airam Tripathi PROF 14(COMP METB)on 023 Albumin [Mass/Vol] 3.0 g/dL Critically low 3.4-5.0 [facility] Comment on above: Performed By: #### C MP ####[facility] Tffukvujmh[address] [place], [place] [address]Dr. Airam Tripathi Albumin/Globulin [Mass ratio] 1.1 {ratio} Normal [facility] Comment on above: Performed By: #### C MP ####[facility] Vcbdptmezg6077[address] [place], [place] [address]Dr. Airam Tripathi ALP [Catalytic activity/Vol] 102 U/L Normal 46-116 [facility] Comment on above: Performed By: #### C MP ####[facility] Hwwbkhqmyx940[address] [place], [place] [address]Dr. Airam Tripathi ALT [Catalytic activity/Vol] 20 U/L Normal 14-59 [facility] Comment on above: Performed By: #### C MP ####[facility] Ntinvnzcbx5960[address] [place], [place] [address]Dr. Airam Tripathi Anion gap [Moles/Vol] 11.1 mmol/L Normal [facility] Comment on above: Performed By: #### C MP ####[facility] Ttlpzhhpue357[address] [place], [place] [address]Dr. Airam Tripathi AST [Catalytic activity/Vol] 18 U/L Normal 15-37 [facility] Comment on above: Performed By: #### C MP ####[facility] Uucsjopucz2480 [place] [id number]. Airam Tripathi Bilirubin [Mass/Vol] 0.2 mg/dL Normal 0.2-1.0 [facility] Comment on above: Performed By: #### C MP ####[facility] Eyjiqdcaxk0926 [place] [id number]. Airam Tripathi Calcium [Mass/Vol] 8.0 mg/dL Critically low 8.5-10.1 [facility] Comment on above: Performed By: #### C MP ####[facility] Frjdikgoib1783 [place] [address]Dr. Airam Tripathi Chloride [Moles/Vol] 100 mmol/L Normal 98-107 [facility] Comment on above: Performed By: #### C MP ####[facility] Dselpsrxke0895[address] [place], [place] [address]Dr. Airam Tripathi CO2 [Moles/Vol] 24.8 mmol/L Normal 21.0-32.0 [facility] Comment on above: Performed By: #### C MP ####[facility] Sgghzkcbzf287[address] [place], [place] [address]Dr. Airam Tripathi Creatinine [Mass/Vol] 1.11 mg/dL Critically high 0.55-1.02 [facility] Comment on above: Performed By: #### C MP ####[facility] Mtevzwbmjn807[address] [place], [place] [address]Dr. Airam Tripathi EGFR-AF ARGENTINE >60 Normal >=60 [facility] Comment on above: Performed By: #### C MP ####[facility] Fvgiqwzdji1767 [place] [id number]. Airam Deuce EGFR-NON AF ARGENTINE 50 mL/min/1.73m2 Critically low >=60 [facility] Comment on above: Performed By: #### C MP ####[facility] Lwadcieiap9420 [place] [id number]. Airam Tripathi Globulin (S) [Mass/Vol] 2.8 g/dL Normal [facility] Comment on above: Performed By: #### C MP ####[facility] Onpylmotcn0311 [place] [id number]. Airam Tripathi Glucose [Mass/Vol] 77 mg/dL Normal 74-106 [facility] Comment on above: Performed By: #### C MP ####[facility] Retknaspdp9639 [place] [id number]. Airam Tripathi Potassium [Moles/Vol] 4.9 mmol/L Normal 3.5-5.1 [facility] Comment on above: Performed By: #### C MP ####[facility] Efmjlgwcwx9874 [place] [id number]. Airam Tripathi Protein [Mass/Vol] 5.8 g/dL Critically low 6.4-8.2 [facility] Comment on above: Performed By: #### C MP ####[facility] Wbiotndbto063[address] [place], [place] [address]Dr. Airam Tripathi Sodium [Moles/Vol] 131 mmol/L Critically low 136-145 [facility] Comment on above: Performed By: #### C MP ####[facility] Irlozxhekc8555[address] [place], [place] [address]Dr. Airam Tripathi Urea nitrogen [Mass/Vol] 33.0 mg/dL Critically high 7.0-18.0 [facility] Comment on above: Performed By: #### C MP ####[facility] Skuxkijfop6744[address] [place], [place] [address]Dr. Airam Tripathi Urea nitrogen/Creatinine [Mass ratio] 29.7 mg/mg Normal [facility] Comment on above: Performed By: #### C MP ####[facility] Hulkuylwez4764 [place] [address]Dr. Airam Deuce ECHOCARDIO M/2D COMPLETEon 0 09-21-2022 ECHOCARDIO M/2D COMPLETE Normal [facility] OSMOLALITYon 09-21-2022 Osmolality [Osmolality] 282 mosm/kg Normal 275-295 [facility] Comment on above: Performed By: #### O SMO ####[facility] Zskqbzgyqw086[address] [place], [place] [address]Dr. Airam Tripathi PHOSPHOLIPIDSon 09-21-2022 Phospholipids, Serum 249 mg/dL Normal 151-288 [facility] Comment on above: Performed By: #### P HOSLIP ####[facility] Eemluodkio505[address] [place], [place] [address]Dr. Airam Tripathi CBC AUTO DIFFon 09-20-2022 BASO # 0.0 103/ul Normal 0.0-0.1 [facility] Comment on above: Performed By: #### C BC ####[facility] Ysepqcssfy898[address] [place], [place] [address]Dr. Airam Tripathi Basophils/100 WBC (Bld) 0.5 % Normal 0.2-2.0 [facility] Comment on above: Performed By: #### C BC ####[facility] Dciqdgawea975[address] [place], [place] [address]Dr. Selenaneil Tripathi EO # 0.2 103/ul Normal 0.0-0.7 [facility] Comment on above: Performed By: #### C BC ####[facility] Sidvdteqns8560[address] [place], [place] [address]Dr. Airam Tripathi Eosinophils/100 WBC (Bld) 2.9 % Normal 0.9-7.0 [facility] Comment on above: Performed By: #### C BC ####[facility] Sllrzuoqvk0460[address] [place], [place] [address]Dr. Selenaneil Deuce Erythrocyte distribution width (RBC) [Ratio] 15.4 % Critically high 11.0-15.0 [facility] Comment on above: Performed By: #### C BC ####[facility] Gaqpvzjdgy7723[address] [place], [place] [address]Dr. Airam Tripathi Hematocrit (Bld) [Volume fraction] 26.3 % Critically low 36.0-48.0 [facility] Comment on above: Performed By: #### C BC ####[facility] Srpgkvdcvf8710[address] [place], [place] [address]Dr. Airam Tripathi Hemoglobin (Bld) [Mass/Vol] 8.2 g/dL Critically low 12.0-16.0 [facility] Comment on above: Performed By: #### C BC ####[facility] Gwzjrrrpgu3043 [place] [address]Dr. Airam Deuce IG # 0.03 10e3/ul Normal 0.00-0.03 [facility] Comment on above: Performed By: #### C BC ####[facility] Zfkhblrwyi9211 [place] [address]Dr. Airam Tripathi IG % 0.4 % Normal 0.0-0.5 [facility] Comment on above: Performed By: #### C BC ####[facility] Uvrkeapqcz1567[address] [place], [place] [address]DrKianna Tripathi LYMPH # 1.9 103/ul Normal 1.2-3.8 [facility] Comment on above: Performed By: #### C BC ####[facility] Xldyngwxol7837[address] [place], [place] [address]Dr. Airam Tripathi Lymphocytes/100 WBC (Bld) 23.0 % Normal 20.5-60.0 [facility] Comment on above: Performed By: #### C BC ####[facility] Iwppzmnmll0064[address] [place], [place] [address]Dr. Selenaneil Tripathi MANUAL DIFF REQ NO Normal [facility] Comment on above: Performed By: #### C BC ####[facility] Rwayrptnim7065[address] [place], [place] [address]DrKianna Airam Deuce MCH (RBC) [Entitic mass] 28.5 pg Normal 26.7-34.0 [facility] Comment on above: Performed By: #### C BC ####[facility] Vkthbsvrsq5064[address] [place], [place] [address]DrKianna Airam Deuce MCHC (RBC) [Mass/Vol] 31.2 g/dL Normal 29.9-35.2 [facility] Comment on above: Performed By: #### C BC ####[facility] Uokxtlyzrl378[address] [place], [place] [address]DrKianna Airam Deuce MCV (RBC) [Entitic vol] 91.3 fL Normal 81.0-99.0 [facility] Comment on above: Performed By: #### C BC ####[facility] Otanxargyz156[address] [place], [place] [address]Dr. Airam Tripathi MONO # 0.7 103/ul Normal 0.3-0.8 [facility] Comment on above: Performed By: #### C BC ####[facility] Hrntvmqvob6233 [place] [address]Dr. Airam Tripathi Monocytes/100 WBC (Bld) 7.7 % Normal 1.7-12.0 [facility] Comment on above: Performed By: #### C BC ####[facility] Eogdopwuux0990 [place] [address]Dr. Airam Tripathi NEUT # 5.5 103/ul Normal 1.4-6.5 [facility] Comment on above: Performed By: #### C BC ####[facility] Lwnvtmmitc3581 [place] [address]Dr. Airam Tripathi Neutrophils/100 WBC (Bld) 65.5 % Normal 43.0-75.0 [facility] Comment on above: Performed By: #### C BC ####[facility] Ekjepisowp144[address] [place], [place] [address]Dr. Airam rTipathi Platelet mean volume (Bld) [Entitic vol] 9.1 fL Critically low 9.5-13.5 [facility] Comment on above: Performed By: #### C BC ####[facility] Euuzknrecd2934 [place] [address]Dr. Airam Tripathi PLT 258 103/ul Normal 150-450 [facility] Comment on above: Performed By: #### C BC ####[facility] Zhdlvuatfo965[address] [place], [place] [address]Dr. Airam Tripathi RBC 2.88 106/ul Critically low 4.20-5.40 [facility] Comment on above: Performed By: #### C BC ####[facility] Xswpcekaqt727[address] [place], [place] [address]Dr. Airam Tripathi WBC 8.4 103/ul Normal 4.0-11.0 [facility] Comment on above: Performed By: #### C BC ####[facility] Zbxtldgpsj7464[address] [place], [place] [address]Dr. Yineil Tripathi PROF CHEM 8 (BAS METB)on Anion gap [Moles/Vol] 10.3 mmol/L Normal [facility] Comment on above: Performed By: #### B MP ####[facility] Celeimdslx8395 [place] [address]Dr. Airam Tripathi Calcium [Mass/Vol] 7.9 mg/dL Critically low 8.5-10.1 [facility] Comment on above: Performed By: #### B MP ####[facility] Lidehznzwi0965[address] [place], [place] [address]Dr. Airam Tripathi Chloride [Moles/Vol] 98 mmol/L Normal 98-107 [facility] Comment on above: Performed By: #### B MP ####[facility] Lfsrklhbki34[address] [place], [place] [address]Dr. Airam Tripathi CO2 [Moles/Vol] 27.5 mmol/L Normal 21.0-32.0 [facility] Comment on above: Performed By: #### B MP ####[facility] Aowoyorkma409[address] [place], [place] [address]Dr. Airam Tripathi Creatinine [Mass/Vol] 1.44 mg/dL Critically high 0.55-1.02 [facility] Comment on above: Performed By: #### B MP ####[facility] Bwhdygwjhx8[address] [place], [place] [address]Dr. Airam Tripathi EGFR-AF ARGENTINE 45 mL/min/1.73m2 Critically low >=60 [facility] Comment on above: Performed By: #### B MP ####[facility] Uatswwnwwi8445[address] [place], [place] [address]Dr. Airam Tripathi EGFR-NON AF ARGENTINE 37 mL/min/1.73m2 Critically low >=60 [facility] Comment on above: Performed By: #### B MP ####[facility] Pchyjeqchg[address] [place], [place] [address]Dr. Airam Tripathi Glucose [Mass/Vol] 91 mg/dL Normal 74-106 [facility] Comment on above: Performed By: #### B MP ####[facility] Cejrgdntqv208[address] [place], [place] [address]Dr. Airma Tripathi Potassium [Moles/Vol] 4.8 mmol/L Normal 3.5-5.1 [facility] Comment on above: Performed By: #### B MP ####[facility] [address]qmbw[address] [place] [address]Dr. Airam Tripathi Sodium [Moles/Vol] 131 mmol/L Critically low 136-145 [facility] Comment on above: Performed By: #### B MP ####[facility] Qelurosbea[address] [place] [address]Dr. Airam Trpiathi Urea nitrogen [Mass/Vol] 40.0 mg/dL Critically high 7.0-18.0 [facility] Comment on above: Performed By: #### B MP ####[facility] Dannmadefo[address] [place] [address]Dr. Airam Tripathi Urea nitrogen/Creatinine [Mass ratio] 27.8 mg/mg Normal [facility] Comment on above: Performed By: #### B MP ####[facility] Rhltjnbkvg90[address] [place] [address]Dr. Airam Tripathi Anion gap [Moles/Vol] 10.6 mmol/L Normal [facility] Comment on above: Performed By: #### B MP ####[facility] Avhkvyjsdd09[address] [place], [place] [address]Dr. Airam Tripathi Calcium [Mass/Vol] 7.9 mg/dL Critically low 8.5-10.1 [facility] Comment on above: Performed By: #### B MP ####[facility] Mlknntgtdk[address] [place] [address]Dr. Airam Tripathi Chloride [Moles/Vol] 101 mmol/L Normal 98-107 [facility] Comment on above: Performed By: #### B MP ####[facility] Mrsqfgtccp37[address] [place], [place] [address]Dr. Airam Tripathi CO2 [Moles/Vol] 27.4 mmol/L Normal 21.0-32.0 [facility] Comment on above: Performed By: #### B MP ####[facility] Ywvaboaxof[address] [place], [place] [id number]. Airam Tripathi Creatinine [Mass/Vol] 1.35 mg/dL Critically high 0.55-1.02 [facility] Comment on above: Performed By: #### B MP ####[facility] Xkpvrlopca[address] [place] [address]Dr. Selenaneil Tripathi EGFR-AF ARGENTINE 48 mL/min/1.73m2 Critically low >=60 [facility] Comment on above: Performed By: #### B MP ####[facility] Icjhjkoohj84[address] [place], [place] [address]Dr. Selenaneil Deuce EGFR-NON AF ARGENTINE 40 mL/min/1.73m2 Critically low >=60 [facility] Comment on above: Performed By: #### B MP ####[facility] Tjyygplipz55[address] [place], [place] [address]Dr. Airam Tripathi Glucose [Mass/Vol] 114 mg/dL Critically high 74-106 [facility] Comment on above: Performed By: #### B MP ####[facility] Cytjwtxtaz[address] [place], [place] [address]Dr. Airam Tripathi Potassium [Moles/Vol] 5.0 mmol/L Normal 3.5-5.1 [facility] Comment on above: Performed By: #### B MP ####[facility] Akdfgdiepk85[address] [place], [place] [address]Dr. Airam Tripathi Sodium [Moles/Vol] 134 mmol/L Critically low 136-145 [facility] Comment on above: Performed By: #### B MP ####[facility] Eioohiurnq368[address] [place], [place] [address]Dr. Airma Tripathi Urea nitrogen [Mass/Vol] 40.0 mg/dL Critically high 7.0-18.0 [facility] Comment on above: Performed By: #### B MP ####[facility] Fvkkhydeqf8080[address] [place], [place] [address]Dr. Airam Tripathi Urea nitrogen/Creatinine [Mass ratio] 29.6 mg/mg Normal [facility] Comment on above: Performed By: #### B MP ####[facility] Plmbnglujg2540[address] [place], [place] [address]Dr. Airam Tripathi PTH INTACTon 09-20-2022 PTH, Intact 104 pg/mL Critically high 15-65 [facility] Comment on above: Performed By: #### P THINT ####[facility] Jjgpcssvhm9[address] [place], [place] [address]Dr. Airam Tripathi BNPon 09-19-2022 Natriuretic peptide B (Bld) [Mass/Vol] 1272.0 pg/mL Critically high <=900.0 [facility] Comment on above: Performed By: #### H STROPN, TSH, K, BNP ####[facility] Vtiwobvzst96[address] [place], [place] [address]Dr. Airam Deuce CBC AUTO DIFFon 09-19-2022 BASO # 0.0 103/ul Normal 0.0-0.1 [facility] Comment on above: Performed By: #### C BC ####[facility] Cfxdjhnzkl345[address] [place], [place] [address]Dr. Airam Tripathi Basophils/100 WBC (Bld) 0.5 % Normal 0.2-2.0 [facility] Comment on above: Performed By: #### C BC ####[facility] Ebcwdjggmx552[address] [place], [place] [address]Dr. Airam Deuce EO # 0.2 103/ul Normal 0.0-0.7 [facility] Comment on above: Performed By: #### C BC ####[facility] Yggkjigfqk0014[address] [place], [place] [address]Dr. Airam Tripathi Eosinophils/100 WBC (Bld) 2.6 % Normal 0.9-7.0 [facility] Comment on above: Performed By: #### C BC ####[facility] Xhzropuhob229[address] [place], [place] [address]Dr. Airam Tripathi Erythrocyte distribution width (RBC) [Ratio] 15.5 % Critically high 11.0-15.0 [facility] Comment on above: Performed By: #### C BC ####[facility] Mqtmvgqibc644[address] [place], [place] [address]Dr. Airam Tripathi Hematocrit (Bld) [Volume fraction] 31.1 % Critically low 36.0-48.0 [facility] Comment on above: Performed By: #### C BC ####[facility] Yeajqlnquv36[address] [place] [address]DrKianna Tripathi Hemoglobin (Bld) [Mass/Vol] 9.6 g/dL Critically low 12.0-16.0 [facility] Comment on above: Performed By: #### C BC ####[facility] Gfcocbgmht9036[address] [place], [place] [address]DrKianna Tripathi IG # 0.04 10e3/ul Critically high 0.00-0.03 [facility] Comment on above: Performed By: #### C BC ####[facility] Ytjbnykynp4520[address] [place], [place] [address]DrKianna Tripathi IG % 0.5 % Normal 0.0-0.5 [facility] Comment on above: Performed By: #### C BC ####[facility] Sbdwpsyzeo[address] [place], [place] [address]DrKianna Tripathi LYMPH # 1.0 103/ul Critically low 1.2-3.8 [facility] Comment on above: Performed By: #### C BC ####[facility] Tmjhpaxyrv83[address] [place], [place] [address]DrKianna Tripathi Lymphocytes/100 WBC (Bld) 12.0 % Critically low 20.5-60.0 [facility] Comment on above: Performed By: #### C BC ####[facility] Yvpbbdnqxx5313[address] [place], [place] [address]DrKianna Tripathi MANUAL DIFF REQ NO Normal [facility] Comment on above: Performed By: #### C BC ####[facility] Zalevcwtpd8600[address] [place], [place] [address]DrKianna Tripathi MCH (RBC) [Entitic mass] 28.2 pg Normal 26.7-34.0 [facility] Comment on above: Performed By: #### C BC ####[facility] Pndzmzresg78[address] [place] [address]DrKianna Tripathi MCHC (RBC) [Mass/Vol] 30.9 g/dL Normal 29.9-35.2 [facility] Comment on above: Performed By: #### C BC ####[facility] Guidbvisku9291 [place] [address]DrKianna Airam Deuce MCV (RBC) [Entitic vol] 91.5 fL Normal 81.0-99.0 [facility] Comment on above: Performed By: #### C BC ####[facility] Vgsshtawqp8[address] [place] [address]DrKianna Tripathi MONO # 0.5 103/ul Normal 0.3-0.8 [facility] Comment on above: Performed By: #### C BC ####[facility] Gpybxdftfg3009 [place] [address]DrKianna Tripathi Monocytes/100 WBC (Bld) 6.4 % Normal 1.7-12.0 [facility] Comment on above: Performed By: #### C BC ####[facility] Krmsbchgal447[address] [place], [place] [address]Dr. Airam Tripathi NEUT # 6.4 103/ul Normal 1.4-6.5 [facility] Comment on above: Performed By: #### C BC ####[facility] Pmlcttifqu850[address] [place], [place] [address]Dr. Airam Tripathi Neutrophils/100 WBC (Bld) 78.0 % Critically high 43.0-75.0 [facility] Comment on above: Performed By: #### C BC ####[facility] Ijlylrouwl32[address] [place], [place] [address]Dr. Airam Tripathi Platelet mean volume (Bld) [Entitic vol] 9.1 fL Critically low 9.5-13.5 [facility] Comment on above: Performed By: #### C BC ####[facility] Eqihocawlk5740[address] [place], [place] [address]Dr. Airam Tripathi PLT 318 103/ul Normal 150-450 [facility] Comment on above: Performed By: #### C BC ####[facility] Otchvnkcpv75[address] [place] [id number] Tripathi RBC 3.40 106/ul Critically low 4.20-5.40 [facility] Comment on above: Performed By: #### C BC ####[facility] Ftoahrghyz0196 [place] [id number]. Airam Tripathi WBC 8.2 103/ul Normal 4.0-11.0 [facility] Comment on above: Performed By: #### C BC ####[facility] Nekffmalqv1776 [place], [place] [address]Ns. Airam Tripathi Covid-19 PCR (CVDTB)on 08-25 SARS-CoV-2 (COVID-19) RNA MIKE+probe Ql (Unsp spec) Not detected Normal NOT DETECTED [facility] Comment on above: Result Comment: When [...] for this test is supported by the [employer] of Health and Human Service's declaration that [...] be used). Performed By: #### C VDTBH ####[facility] Na[address]laiov[address] [place] [id number]. Airam Tripathi LACTATE/LACTIC ACIDon 2022 Lactate [Moles/Vol] 0.4 mmol/L Normal 0.4-2.0 [facility] Comment on above: Performed By: #### L ACT ####[facility] Gvkczxmugq16[address] [place] [id number]. Airam Tripathi POTASSIUMon 09-19-2022 Potassium [Moles/Vol] 6.3 mmol/L Critically high 3.5-5.1 [facility] Comment on above: Performed By: #### H STROPN, TSH, K, BNP ####[facility] Ngfiarimpn70[address] [place] [address]Dr. Airam Tripathi PROF 14(COMP METB)on 023 Albumin [Mass/Vol] 3.5 g/dL Normal 3.4-5.0 [facility] Comment on above: Performed By: #### C MP ####[facility] Omseazukxx33[address] [place] [address]Dr. Airam Tripathi Albumin/Globulin [Mass ratio] 1.1 {ratio} Normal [facility] Comment on above: Performed By: #### C MP ####[facility] Vtqdpnocvx[address] [place], [place] [address]Dr. Airam Tripathi ALP [Catalytic activity/Vol] 113 U/L Normal 46-116 [facility] Comment on above: Performed By: #### C MP ####[facility] Afnooumgjk059[address] [place], [place] [address]Dr. Airam Tripathi ALT [Catalytic activity/Vol] 26 U/L Normal 14-59 [facility] Comment on above: Performed By: #### C MP ####[facility] Hmxcumuryt823[address] [place], [place] [address]Dr. Airam Tripatih Anion gap [Moles/Vol] 11.5 mmol/L Normal [facility] Comment on above: Performed By: #### C MP ####[facility] Aovdqryxsz8605 [place] [address]Dr. Airam Tripathi AST [Catalytic activity/Vol] 24 U/L Normal 15-37 [facility] Comment on above: Performed By: #### C MP ####[facility] Lahjvkosim0073 [place] [address]Dr. Airam Tripathi Bilirubin [Mass/Vol] 0.3 mg/dL Normal 0.2-1.0 [facility] Comment on above: Performed By: #### C MP ####[facility] Ecxnfgnzpc7055 [place] [address]Dr. Airam Tripathi Calcium [Mass/Vol] 8.9 mg/dL Normal 8.5-10.1 [facility] Comment on above: Performed By: #### C MP ####[facility] Hxnwqfljdw6062 [place] [address]Dr. Airam Tripathi Chloride [Moles/Vol] 103 mmol/L Normal 98-107 [facility] Comment on above: Performed By: #### C MP ####[facility] Assgvdupib9908 [place] [address]Dr. Airam Tripathi CO2 [Moles/Vol] 27.8 mmol/L Normal 21.0-32.0 [facility] Comment on above: Performed By: #### C MP ####[facility] Qmasthmvvx0305 [place] [address]Dr. Airam Tripathi Creatinine [Mass/Vol] 1.28 mg/dL Critically high 0.55-1.02 [facility] Comment on above: Performed By: #### C MP ####[facility] Lfgpatdcyc066[address] [place], [place] [address]Dr. Airam Tripathi EGFR-AF ARGENTINE 52 mL/min/1.73m2 Critically low >=60 [facility] Comment on above: Performed By: #### C MP ####[facility] Tseijgjccy68[address] [place], [place] [address]Dr. Airam Tripathi EGFR-NON AF ARGENTINE 43 mL/min/1.73m2 Critically low >=60 [facility] Comment on above: Performed By: #### C MP ####[facility] Rfjwxewayt299[address] [place], [place] [address]Dr. Airam Tripathi Globulin (S) [Mass/Vol] 3.2 g/dL Normal [facility] Comment on above: Performed By: #### C MP ####[facility] Hbqajgdyxp2287 [place] [address]Dr. Airam Deuce Glucose [Mass/Vol] 95 mg/dL Normal 74-106 [facility] Comment on above: Performed By: #### C MP ####[facility] Ivcnhcranq6283 [place] [address]Dr. Airam Deuce Potassium [Moles/Vol] 6.3 mmol/L Critically high 3.5-5.1 [facility] Comment on above: Performed By: #### C MP ####[facility] Flxnpnrowv6036 [place] [address]Dr. Airam Tripathi Protein [Mass/Vol] 6.7 g/dL Normal 6.4-8.2 [facility] Comment on above: Performed By: #### C MP ####[facility] Lfavhfbrsd4132 [place] [address]Dr. Airam Tripathi Sodium [Moles/Vol] 135 mmol/L Critically low 136-145 [facility] Comment on above: Performed By: #### C MP ####[facility] Kdfoetfmxu39[address] [place] [address]Dr. Airam Tripathi Urea nitrogen [Mass/Vol] 42.0 mg/dL Critically high 7.0-18.0 [facility] Comment on above: Performed By: #### C MP ####[facility] Ceogozpmqp0085[address] [place], [place] [address]Dr. Airam Tripathi Urea nitrogen/Creatinine [Mass ratio] 32.8 mg/mg Normal [facility] Comment on above: Performed By: #### C MP ####[facility] Qvyvlgenqc457[address] [place], [place] [address]Dr. Airam Tripathi TROPONIN, HIGH SENSITIVITYon 09-19-2022 HSTROP 7.1 pg/mL Normal 4.0-51.3 [facility] Comment on above: Result Comment: CUT- OFF POINTS HAVE BEEN ESTABLISHED BASED ON THE FOURTH UNIVERSAL DEFINITIONS OF MYOCARDIALINFARCTION. THE UPPER REFERENCE LIMIT (URL) OF TROPONIN, DEFINED THE 99TH PERCENTILE OFcTnI DISTRIBUTION IN A REFERENCE POPULATION, HAS BEEN CONFIRMED THE DECISION THRESHOLDFOR [place] DIAGNOSIS. Performed By: #### H STROPN, TSH, K, BNP ####[facility] Mpqspbxjvn874[address] [place], [place] [address]Dr. Airam Tripathi TSHon 09-19-2022 TSH 0.028 uIU/mL Critically low 0.358-3.74 0 [facility] Comment on above: Performed By: #### H STROPN, TSH, K, BNP ####[facility] Xlgotpnjpl213[address] [place], [place] [address]Dr. Airam Tripathi UA RANDOMon 09-19-2022 Bilirubin Ql (U) Negative Normal NEGATIVE [facility] Comment on above: Performed By: #### U A ####[facility] Awhvacczoi356[address] [place], [place] [address]Dr. Airam Tripathi Clarity (U) CLEAR Normal CLEAR [facility] Comment on above: Performed By: #### U A ####[facility] Abzcgcbbjc823[address] [place], [place] [address]Dr. Airam Tripathi Color (U) LT. YELLOW Normal YELLOW [facility] Comment on above: Performed By: #### U A ####[facility] Tvfpcktuze9022[address] [place], [place] [address]Dr. Airam Tripathi Glucose Ql (U) Negative Normal NEGATIVE [facility] Comment on above: Performed By: #### U A ####[facility] Nqxtgekxsy889[address] [place], [place] [address]Dr. Airam Tripathi Hemoglobin Ql (U) Negative Normal NEGATIVE [facility] Comment on above: Performed By: #### U A ####[facility] Zgyqwebbnj420[address] [place], [place] [address]Dr. Airam Tripathi Ketones Ql (U) Negative Normal NEGATIVE [facility] Comment on above: Performed By: #### U A ####[facility] Ytlmoqunjv299[address] [place], [place] [address]Dr. Airam Tripathi LEUKOCYTES TRACE Abnormal NEGATIVE [facility] Comment on above: Performed By: #### U A ####[facility] Vzaznkwrud27[address] [place], [place] [address]Dr. Airam Tripathi Nitrite Ql (U) Negative Normal NEGATIVE [facility] Comment on above: Performed By: #### U A ####[facility] Dyxzyqeyah625[address] [place], [place] [address]Dr. Airam Tripathi pH (U) 5.5 [pH] Normal 5-9 [facility] Comment on above: Performed By: #### U A ####[facility] Uckbkxnxcm0526[address] [place], [place] [address]Dr. Airam Tripathi SPEC GRAVITY 1.010 Normal 1.005-<=1. 025 [facility] Comment on above: Performed By: #### U A ####[facility] Jvpvymxfmk84[address] [place] [address]Dr. Airam Tripathi UA PROTEIN Negative Normal NEGATIVE/ TRACE [facility] Comment on above: Performed By: #### U A ####[facility] Xijthxoalh3359 [place] [address]Dr. Airam Tripathi Urobilinogen Qn (U) 0.2 {Ligia'U}/dL Normal 0.2 - 1. 0 [facility] Comment on above: Performed By: #### U A ####[facility] Rhrkdladri499[address] [place], [place] [address]Dr. Airam Tripathi URIC ACID SERUMon 09-19-2022 Urate [Mass/Vol] 6.9 mg/dL Critically high 2.6-6.0 [facility] Comment on above: Performed By: #### U TRESSA ####[facility] Nmoxwsjdit558[address] [place], [place] [address]Dr. Airam Tripathi URINE T PROTEIN CREAT RATIOo n 09-19-2022 UR TOTAL PROTEIN <6.0 Normal <=12.0 [facility] Comment on above: Performed By: #### U RTPCR ####[facility] Griiellplh4936[address] [place], [place] [address]Dr. Airam Tripathi URINE CREAT 15.12 mg/dL Critically low 20.00-300. 00 [facility] Comment on above: Performed By: #### U RTPCR ####[facility] Vmdmjvensq769[address] [place], [place] [address]Dr. Airam Tripathi VITAMIN D 25 OHon 09-19-2022 VIT D 25-OH 75.9 ng/mL Normal [facility] Comment on above: Performed By: #### V ITAD ####[facility] Uvbisumbpp007[address] [place], [place] [address]Dr. Airam Tripathi VIT D RANGES SEE BELOW Normal [facility] Comment on above: Result Comment: <20 ng/mL Vit D deficient 20 - <30 ng/mL Vit D insufficient 30 - 100 ng/mL Vit D sufficient >100 ng/mL Potential Toxicity Performed By: #### V ITAD ####[facility] Ruwnqxnqyn[address] [place] [address]Dr. Airam Tripathi OSMOLALITYon 09-14-2022 Osmolality [Osmolality] 272 mosm/kg Critically low 275-295 [facility] Comment on above: Performed By: #### O SMO ####[facility] Uybftivfbv9[address] [place], [place] [address]Dr. Airam Tripathi CBC AUTO DIFFon 09-12-2022 BASO # 0.0 103/ul Normal 0.0-0.1 [facility] Comment on above: Performed By: #### C BC ####[facility] Bwiykofpzk88[address] [place], [place] [address]Dr. Airam Tripathi Basophils/100 WBC (Bld) 0.5 % Normal 0.2-2.0 [facility] Comment on above: Performed By: #### C BC ####[facility] Omjnygvthp469[address] [place], [place] [address]DrKianna Tripathi EO # 0.2 103/ul Normal 0.0-0.7 [facility] Comment on above: Performed By: #### C BC ####[facility] Ldsnmpqlgs527[address] [place], [place] [address]DrKianna Tripathi Eosinophils/100 WBC (Bld) 2.4 % Normal 0.9-7.0 [facility] Comment on above: Performed By: #### C BC ####[facility] Lrycpavhju0534[address] [place], [place] [address]DrKianna Tripathi Erythrocyte distribution width (RBC) [Ratio] 14.8 % Normal 11.0-15.0 [facility] Comment on above: Performed By: #### C BC ####[facility] Iqniwbyzuu014[address] [place], [place] [address]DrKianna Tripathi Hematocrit (Bld) [Volume fraction] 32.6 % Critically low 36.0-48.0 [facility] Comment on above: Performed By: #### C BC ####[facility] Wagkwciixi216[address] [place], [place] [address]DrKianna Tripathi Hemoglobin (Bld) [Mass/Vol] 10.1 g/dL Critically low 12.0-16.0 [facility] Comment on above: Performed By: #### C BC ####[facility] Umtwxwqbvz5270 [place] [address]DrKianna Tripathi IG # 0.05 10e3/ul Critically high 0.00-0.03 [facility] Comment on above: Performed By: #### C BC ####[facility] Eoblfhkqip7205 [place] [address]DrKianna Tripathi IG % 0.7 % Critically high 0.0-0.5 [facility] Comment on above: Performed By: #### C BC ####[facility] Wuapqjhhvf687[address] [place], [place] [address]DrKianna Tripathi LYMPH # 1.9 103/ul Normal 1.2-3.8 [facility] Comment on above: Performed By: #### C BC ####[facility] Ociztakpwz8217[address] [place], [place] [address]DrKianna Tripathi Lymphocytes/100 WBC (Bld) 24.7 % Normal 20.5-60.0 [facility] Comment on above: Performed By: #### C BC ####[facility] Karmosggmt98[address] [place], [place] [address]DrKianna Tripathi MANUAL DIFF REQ NO Normal [facility] Comment on above: Performed By: #### C BC ####[facility] Ocehgqsexj769[address] [place], [place] [address]DrKianna Tripathi MCH (RBC) [Entitic mass] 28.0 pg Normal 26.7-34.0 [facility] Comment on above: Performed By: #### C BC ####[facility] Xkxyxjiztg1037[address] [place], [place] [address]DrKianna Tripathi MCHC (RBC) [Mass/Vol] 31.0 g/dL Normal 29.9-35.2 [facility] Comment on above: Performed By: #### C BC ####[facility] Ziwardftkf383[address] [place], [place] [address]DrKianna Tripathi MCV (RBC) [Entitic vol] 90.3 fL Normal 81.0-99.0 [facility] Comment on above: Performed By: #### C BC ####[facility] Chlkmkofbe6263 [place] [address]DrKianna Tripathi MONO # 0.5 103/ul Normal 0.3-0.8 [facility] Comment on above: Performed By: #### C BC ####[facility] Qrxfywepfb0296 [place] [address]DrKianna Tripathi Monocytes/100 WBC (Bld) 6.0 % Normal 1.7-12.0 [facility] Comment on above: Performed By: #### C BC ####[facility] Wxawqxtgjt59[address] [place], [place] [address]DrKianna Tripathi NEUT # 5.0 103/ul Normal 1.4-6.5 [facility] Comment on above: Performed By: #### C BC ####[facility] Xjpwiszrrm877[address] [place], [place] [address]DrKianna Tripathi Neutrophils/100 WBC (Bld) 65.7 % Normal 43.0-75.0 [facility] Comment on above: Performed By: #### C BC ####[facility] Saarknsoym94[address] [place], [place] [address]DrKainna Tripathi Platelet mean volume (Bld) [Entitic vol] 9.5 fL Normal 9.5-13.5 [facility] Comment on above: Performed By: #### C BC ####[facility] Vygwxpovjh17[address] [place], [place] [address]Dr. Airam Tripathi PLT 307 103/ul Normal 150-450 [facility] Comment on above: Performed By: #### C BC ####[facility] Smmmdsaodc250[address] [place], [place] [address]DrKianna Tripathi RBC 3.61 106/ul Critically low 4.20-5.40 [facility] Comment on above: Performed By: #### C BC ####[facility] Quqeknqkfy96[address] [place], [place] [address]DrKianna Tripathi WBC 7.5 103/ul Normal 4.0-11.0 [facility] Comment on above: Performed By: #### C BC ####[facility] Jojuilduwb3339 [place] [address]DrKianna Tripathi PROF 14(COMP METB)on 023 Albumin [Mass/Vol] 3.5 g/dL Normal 3.4-5.0 [facility] Comment on above: Performed By: #### C MP ####[facility] Mdbebhufgb0905 [place] [address]DrKianna Tripathi Albumin/Globulin [Mass ratio] 1.1 {ratio} Normal [facility] Comment on above: Performed By: #### C MP ####[facility] Rjlalcdymp5033 [place] [address]DrKianna Tripathi ALP [Catalytic activity/Vol] 126 U/L Critically high 46-116 [facility] Comment on above: Performed By: #### C MP ####[facility] Vlmdfeyjbe[address] [place], [place] [address]Dr. Airam Tripathi ALT [Catalytic activity/Vol] 18 U/L Normal 14-59 [facility] Comment on above: Performed By: #### C MP ####[facility] Qrmwnwqcyu9206 [place] [address]DrKianna Tripathi Anion gap [Moles/Vol] 11.1 mmol/L Normal [facility] Comment on above: Performed By: #### C MP ####[facility] Muoycnjfhq36[address] [place] [address]DrKianna Tripathi AST [Catalytic activity/Vol] 26 U/L Normal 15-37 [facility] Comment on above: Performed By: #### C MP ####[facility] Ozefhkgxvk4547 [place] [address]DrKianna Tripathi Bilirubin [Mass/Vol] 0.3 mg/dL Normal 0.2-1.0 [facility] Comment on above: Performed By: #### C MP ####[facility] Tbgueudspc9629 [place] [address]DrKianna Tripathi Calcium [Mass/Vol] 8.5 mg/dL Normal 8.5-10.1 [facility] Comment on above: Performed By: #### C MP ####[facility] Btsbpphgpc13[address] [place] [address]Dr. Airam Tripathi Chloride [Moles/Vol] 98 mmol/L Normal 98-107 [facility] Comment on above: Performed By: #### C MP ####[facility] Axfrfbsfxu4753 [place] [id number]. Airam Tripathi CO2 [Moles/Vol] 23.9 mmol/L Normal 21.0-32.0 [facility] Comment on above: Performed By: #### C MP ####[facility] [address] [place] [address]Dr. Airam Deuce Creatinine [Mass/Vol] 1.40 mg/dL Critically high 0.55-1.02 [facility] Comment on above: Performed By: #### C MP ####[facility] Rlhaxrmgse55[address] [place], [place] [address]Dr. Airam Deuce EGFR-AF ARGENTINE 46 mL/min/1.73m2 Critically low >=60 [facility] Comment on above: Performed By: #### C MP ####[facility] Ntsnlvdgdo147[address] [place], [place] [address]Dr. Airam Deuce EGFR-NON AF ARGENTINE 38 mL/min/1.73m2 Critically low >=60 [facility] Comment on above: Performed By: #### C MP ####[facility] Wryyofhsfz[address] [place] [address]Dr. Airam Deuce Globulin (S) [Mass/Vol] 3.3 g/dL Normal [facility] Comment on above: Performed By: #### C MP ####[facility] Mruuutsmbd0[address] [place] [id number]. Airam Deuce Glucose [Mass/Vol] 72 mg/dL Critically low 74-106 [facility] Comment on above: Performed By: #### C MP ####[facility] Hupewhzqxk6[address] [place] [id number]. Airam Tripathi Potassium [Moles/Vol] 5.0 mmol/L Normal 3.5-5.1 [facility] Comment on above: Performed By: #### C MP ####[facility] Wmxueewgyw58[address] [place], [place] [address]Dr. Airam Tripathi Protein [Mass/Vol] 6.8 g/dL Normal 6.4-8.2 [facility] Comment on above: Performed By: #### C MP ####[facility] Johsywvqhh5425[address] [place], [place] [address]Dr. Airam Tripathi Sodium [Moles/Vol] 128 mmol/L Critically low 136-145 [facility] Comment on above: Performed By: #### C MP ####[facility] Iejmaajvof6413[address] [place], [place] [address]Dr. Airam Tripathi Urea nitrogen [Mass/Vol] 27.0 mg/dL Critically high 7.0-18.0 [facility] Comment on above: Performed By: #### C MP ####[facility] Sagcxemdqp1833[address] [place], [place] [address]Dr. Airam Tripathi Urea nitrogen/Creatinine [Mass ratio] 19.3 mg/mg Normal [facility] Comment on above: Performed By: #### C MP ####[facility] Heaunraehh8026[address] [place], [place] [address]Dr. Airam Tripathi OSMOLALITYon 09-10-2022 Osmolality [Osmolality] 275 mosm/kg Normal 275-295 [facility] Comment on above: Performed By: #### O SMO ####[facility] Cwuvawqojt9723[address] [place], [place] [address]Dr. Airam Tripathi CBC AUTO DIFFon 09-08-2022 BASO # 0.0 103/ul Normal 0.0-0.1 [facility] Comment on above: Performed By: #### C BC ####[facility] Bxqvjydqyu[address] [place], [place] [address]Dr. Airam Tripathi Basophils/100 WBC (Bld) 0.5 % Normal 0.2-2.0 [facility] Comment on above: Performed By: #### C BC ####[facility] Qyrsggvefx528[address] [place], [place] [address]Dr. Airam Tripathi EO # 0.1 103/ul Normal 0.0-0.7 [facility] Comment on above: Performed By: #### C BC ####[facility] Jftdawener[address] [place] [address]Dr. Airam Tripathi Eosinophils/100 WBC (Bld) 1.7 % Normal 0.9-7.0 [facility] Comment on above: Performed By: #### C BC ####[facility] Dibjrlftif0570[address] [place], [place] [address]Dr. Airam Tripathi Erythrocyte distribution width (RBC) [Ratio] 14.7 % Normal 11.0-15.0 [facility] Comment on above: Performed By: #### C BC ####[facility] Qfkpgpveab953093 [address] [place], [place] [address]Dr. Airam Tripathi Hematocrit (Bld) [Volume fraction] 30.3 % Critically low 36.0-48.0 [facility] Comment on above: Performed By: #### C BC ####[facility] Oclczmtqad273[address] [place], [place] [address]Dr. Airam Tripathi Hemoglobin (Bld) [Mass/Vol] 9.3 g/dL Critically low 12.0-16.0 [facility] Comment on above: Performed By: #### C BC ####[facility] Vvdjnpjkhf980[address] [place], [place] [address]Dr. Airam Deuce IG # 0.03 10e3/ul Normal 0.00-0.03 [facility] Comment on above: Performed By: #### C BC ####[facility] Xuwrvzmvxa054[address] [place], [place] [address]Dr. Airam Deuce IG % 0.5 % Normal 0.0-0.5 [facility] Comment on above: Performed By: #### C BC ####[facility] Gszuryovez3464[address] [place], [place] [address]Dr. Airam Tripathi LYMPH # 0.9 103/ul Critically low 1.2-3.8 [facility] Comment on above: Performed By: #### C BC ####[facility] Ibgjolcuxr600[address] [place], [place] [address]DrKianna Tripathi Lymphocytes/100 WBC (Bld) 13.6 % Critically low 20.5-60.0 [facility] Comment on above: Performed By: #### C BC ####[facility] Vlkcuwmlke7[address] [place] [address]DrKianna Tripathi MANUAL DIFF REQ NO Normal [facility] Comment on above: Performed By: #### C BC ####[facility] Fyqpgzuvtc90[address] [place] [address]DrKianna Tripathi MCH (RBC) [Entitic mass] 27.4 pg Normal 26.7-34.0 [facility] Comment on above: Performed By: #### C BC ####[facility] Lkpafuuaoj612[address] [place], [place] [address]DrKianna Tripathi MCHC (RBC) [Mass/Vol] 30.7 g/dL Normal 29.9-35.2 [facility] Comment on above: Performed By: #### C BC ####[facility] Wzsketrrvz7538[address] [place], [place] [address]DrKianna Tripathi MCV (RBC) [Entitic vol] 89.4 fL Normal 81.0-99.0 [facility] Comment on above: Performed By: #### C BC ####[facility] Lpsfpamtpu912[address] [place], [place] [address]DrKianna Tripathi MONO # 0.5 103/ul Normal 0.3-0.8 [facility] Comment on above: Performed By: #### C BC ####[facility] Gmlfyamhuu830[address] [place], [place] [address]DrKianna Tripathi Monocytes/100 WBC (Bld) 8.0 % Normal 1.7-12.0 [facility] Comment on above: Performed By: #### C BC ####[facility] Ycqegezixi633[address] [place], [place] [address]DrKianna Tripathi NEUT # 5.0 103/ul Normal 1.4-6.5 [facility] Comment on above: Performed By: #### C BC ####[facility] Wwurepvbkf6418[address] [place], [place] [address]DrKianna Tripathi Neutrophils/100 WBC (Bld) 75.7 % Critically high 43.0-75.0 [facility] Comment on above: Performed By: #### C BC ####[facility] Oipfptynkt15[address] [place] [address]Dr. Airam Tripathi Platelet mean volume (Bld) [Entitic vol] 10.4 fL Normal 9.5-13.5 [facility] Comment on above: Performed By: #### C BC ####[facility] Uqcpadxpiy53[address] [place] [address]Dr. Airam Tripathi PLT 315 103/ul Normal 150-450 [facility] Comment on above: Performed By: #### C BC ####[facility] Qlaijafmvh564[address] [place], [place] [address]Dr. Airam Tripathi RBC 3.39 106/ul Critically low 4.20-5.40 [facility] Comment on above: Performed By: #### C BC ####[facility] Xpfdvqxwcf916[address] [place], [place] [address]DrKianna Tripathi WBC 6.5 103/ul Normal 4.0-11.0 [facility] Comment on above: Performed By: #### C BC ####[facility] Akvrloisle[address] [place], [place] [address]DrKianna Tripathi PROF 14(COMP METB)on 023 Albumin [Mass/Vol] 3.1 g/dL Critically low 3.4-5.0 [facility] Comment on above: Performed By: #### C MP ####[facility] Tpuydfhofs016[address] [place], [place] [address]DrKianna Tripathi Albumin/Globulin [Mass ratio] 1.0 {ratio} Normal [facility] Comment on above: Performed By: #### C MP ####[facility] Ozzrkneazz260[address] [place], [place] [address]DrKianna Tripathi ALP [Catalytic activity/Vol] 126 U/L Critically high 46-116 [facility] Comment on above: Performed By: #### C MP ####[facility] Glyvtshjei500[address] [place], [place] [address]DrKianna Tripathi ALT [Catalytic activity/Vol] 18 U/L Normal 14-59 [facility] Comment on above: Performed By: #### C MP ####[facility] Ujntwnbabs13[address] [place] [id number]. Airam Deuce Anion gap [Moles/Vol] 11.4 mmol/L Normal [facility] Comment on above: Performed By: #### C MP ####[facility] Oeqoiujqnn[address] [place] [id number]. Airam Deuce AST [Catalytic activity/Vol] 25 U/L Normal 15-37 [facility] Comment on above: Performed By: #### C MP ####[facility] Gjhxhgzxep095[address] [place], [place] [address]Dr. Airam Tripathi Bilirubin [Mass/Vol] 0.3 mg/dL Normal 0.2-1.0 [facility] Comment on above: Performed By: #### C MP ####[facility] Tbgqlldrfr4532[address] [place], [place] [address]Dr. Airam Tripathi Calcium [Mass/Vol] 8.6 mg/dL Normal 8.5-10.1 [facility] Comment on above: Performed By: #### C MP ####[facility] Jgnojlwttf34[address] [place], [place] [address]Dr. Airam Tripathi Chloride [Moles/Vol] 97 mmol/L Critically low 98-107 [facility] Comment on above: Performed By: #### C MP ####[facility] Ciccuiadfn3770[address] [place], [place] [address]Dr. Airam Tripathi CO2 [Moles/Vol] 26.1 mmol/L Normal 21.0-32.0 [facility] Comment on above: Performed By: #### C MP ####[facility] Nrlasjpaih8714[address] [place], [place] [address]Dr. Airam Tripathi Creatinine [Mass/Vol] 1.07 mg/dL Critically high 0.55-1.02 [facility] Comment on above: Performed By: #### C MP ####[facility] Lyaeratbvx2338[address] [place], [place] [address]Dr. Airam Tripathi EGFR-AF ARGENTINE >60 Normal >=60 [facility] Comment on above: Performed By: #### C MP ####[facility] Xpdhyqkmaj[address] [place] [address]Dr. Airam Tripathi EGFR-NON AF ARGENTINE 52 mL/min/1.73m2 Critically low >=60 [facility] Comment on above: Performed By: #### C MP ####[facility] Zlobktgygl94[address] [place] [address]Dr. Airam Tripathi Globulin (S) [Mass/Vol] 3.2 g/dL Normal [facility] Comment on above: Performed By: #### C MP ####[facility] Skqnhepauu7095[address] [place], [place] [address]Dr. Airam Tripathi Glucose [Mass/Vol] 83 mg/dL Normal 74-106 [facility] Comment on above: Performed By: #### C MP ####[facility] Rbgvwilkos7470[address] [place], [place] [address]Dr. Airam Tripathi Potassium [Moles/Vol] 5.5 mmol/L Critically high 3.5-5.1 [facility] Comment on above: Performed By: #### C MP ####[facility] Exgpesusfw4555[address] [place], [place] [address]Dr. Airam Tripathi Protein [Mass/Vol] 6.3 g/dL Critically low 6.4-8.2 [facility] Comment on above: Performed By: #### C MP ####[facility] Ldssxpumbf4577[address] [place], [place] [address]Dr. Airam Tripathi Sodium [Moles/Vol] 129 mmol/L Critically low 136-145 [facility] Comment on above: Performed By: #### C MP ####[facility] Crmqsvyilu6787[address] [place], [place] [address]Dr. Airam Rtipathi Urea nitrogen [Mass/Vol] 37.0 mg/dL Critically high 7.0-18.0 [facility] Comment on above: Performed By: #### C MP ####[facility] Vaatmfrnjf479[address] [place], [place] [address]Dr. Airam Tripathi Urea nitrogen/Creatinine [Mass ratio] 34.6 mg/mg Normal [facility] Comment on above: Performed By: #### C MP ####[facility] Sxubuebafg099[address] [place], [place] [address]Dr. Airam Tripathi OSMOLALITYon 09-02-2022 Osmolality [Osmolality] 279 mosm/kg Normal 275-295 [facility] Comment on above: Performed By: #### O SMO ####[facility] Sjdxamstlz93[address] [place], [place] [address]Dr. Airam Tripathi CBC AUTO DIFFon 08-31-2022 BASO # 0.0 103/ul Normal 0.0-0.1 [facility] Comment on above: Performed By: #### C BC ####[facility] Pwdvglezqw596[address] [place], [place] [address]DrKianna Tripathi Basophils/100 WBC (Bld) 0.4 % Normal 0.2-2.0 [facility] Comment on above: Performed By: #### C BC ####[facility] Ibvivbeoma1925[address] [place], [place] [address]DrKianna Tripathi EO # 0.2 103/ul Normal 0.0-0.7 [facility] Comment on above: Performed By: #### C BC ####[facility] Tvcuendskb3930[address] [place], [place] [address]DrKianna Tripathi Eosinophils/100 WBC (Bld) 3.2 % Normal 0.9-7.0 [facility] Comment on above: Performed By: #### C BC ####[facility] Yrbyftwbzy180[address] [place], [place] [address]DrKianna Tripathi Erythrocyte distribution width (RBC) [Ratio] 14.4 % Normal 11.0-15.0 [facility] Comment on above: Performed By: #### C BC ####[facility] Impxdioajj3510[address] [place], [place] [address]DrKianna Tripathi Hematocrit (Bld) [Volume fraction] 27.8 % Critically low 36.0-48.0 [facility] Comment on above: Performed By: #### C BC ####[facility] Pccumxvsji1204[address] [place], [place] [address]DrKianna Tripathi Hemoglobin (Bld) [Mass/Vol] 8.7 g/dL Critically low 12.0-16.0 [facility] Comment on above: Performed By: #### C BC ####[facility] Akwqswyeku[address] [place] [address]DrKianna Tripathi IG # 0.05 10e3/ul Critically high 0.00-0.03 [facility] Comment on above: Performed By: #### C BC ####[facility] Audxbzgmcx097[address] [place], [place] [address]Dr. Airam Tripathi IG % 0.7 % Critically high 0.0-0.5 [facility] Comment on above: Performed By: #### C BC ####[facility] Gbjwjirwxo3688[address] [place], [place] [address]DrKianna Tripathi LYMPH # 1.7 103/ul Normal 1.2-3.8 [facility] Comment on above: Performed By: #### C BC ####[facility] Ynvqpkiilx879[address] [place], [place] [address]DrKianna Tripathi Lymphocytes/100 WBC (Bld) 23.6 % Normal 20.5-60.0 [facility] Comment on above: Performed By: #### C BC ####[facility] Tmvgdcbscq7533[address] [place], [place] [address]DrKianna Tripathi MANUAL DIFF REQ NO Normal [facility] Comment on above: Performed By: #### C BC ####[facility] Hqconyhhhs2875[address] [place], [place] [address]DrKianna Tripathi MCH (RBC) [Entitic mass] 27.8 pg Normal 26.7-34.0 [facility] Comment on above: Performed By: #### C BC ####[facility] Nvyzokrsyz119[address] [place], [place] [address]DrKianna Tripathi MCHC (RBC) [Mass/Vol] 31.3 g/dL Normal 29.9-35.2 [facility] Comment on above: Performed By: #### C BC ####[facility] Zxtshlqlge634[address] [place], [place] [address]DrKianna Tripathi MCV (RBC) [Entitic vol] 88.8 fL Normal 81.0-99.0 [facility] Comment on above: Performed By: #### C BC ####[facility] Nlplmnbgvg97[address] [place] [address] Airam Tripathi MONO # 0.5 103/ul Normal 0.3-0.8 [facility] Comment on above: Performed By: #### C BC ####[facility] Aganesrolh5913[address] [place], [place] [address]DrKianna Airam Tripathi Monocytes/100 WBC (Bld) 6.9 % Normal 1.7-12.0 [facility] Comment on above: Performed By: #### C BC ####[facility] Oolcwfmnor726[address] [place], [place] [address]DrKianna Airam Tripathi NEUT # 4.7 103/ul Normal 1.4-6.5 [facility] Comment on above: Performed By: #### C BC ####[facility] Yeftvhuxug611[address] [place], [place] [address]DrKianna Airam Tripathi Neutrophils/100 WBC (Bld) 65.2 % Normal 43.0-75.0 [facility] Comment on above: Performed By: #### C BC ####[facility] Uhmxmudoco505[address] [place], [place] [address]DrKianna Airam Tripathi Platelet mean volume (Bld) [Entitic vol] 9.8 fL Normal 9.5-13.5 [facility] Comment on above: Performed By: #### C BC ####[facility] Sdekefcfub6837[address] [place], [place] [address]DrKianna Airam Tripathi PLT 225 103/ul Normal 150-450 [facility] Comment on above: Performed By: #### C BC ####[facility] Nglyuituwr832[address] [place], [place] [id number] Airam Deuce RBC 3.13 106/ul Critically low 4.20-5.40 [facility] Comment on above: Performed By: #### C BC ####[facility] Ljvbsebigo418[address] [place], [place] [address]DrKianna Tripathi WBC 7.3 103/ul Normal 4.0-11.0 [facility] Comment on above: Performed By: #### C BC ####[facility] Logpuvrufq110[address] [place] [address]Dr. Airam Tripathi PROF 14(COMP METB)on 023 Albumin [Mass/Vol] 3.0 g/dL Critically low 3.4-5.0 [facility] Comment on above: Performed By: #### C MP ####[facility] Wfljcfmkgr5437[address] [place], [place] [address]Dr. Airam Tripathi Albumin/Globulin [Mass ratio] 1.1 {ratio} Normal [facility] Comment on above: Performed By: #### C MP ####[facility] Buzksmqkzi020[address] [place], [place] [address]Dr. Airam Tripathi ALP [Catalytic activity/Vol] 132 U/L Critically high 46-116 [facility] Comment on above: Performed By: #### C MP ####[facility] Uljdhsacqf377[address] [place], [place] [address]Dr. Airam Tripathi ALT [Catalytic activity/Vol] 20 U/L Normal 14-59 [facility] Comment on above: Performed By: #### C MP ####[facility] Xntcqvuwaw80299[address] [place], [place] [address]Dr. Airam Tripathi Anion gap [Moles/Vol] 9.5 mmol/L Normal [facility] Comment on above: Performed By: #### C MP ####[facility] Enorofbfjl912[address] [place], [place] [address]Dr. Airam Tripathi AST [Catalytic activity/Vol] 25 U/L Normal 15-37 [facility] Comment on above: Performed By: #### C MP ####[facility] Scpuoqzijn244[address] [place], [place] [address]Dr. Airam Tripathi Bilirubin [Mass/Vol] 0.2 mg/dL Normal 0.2-1.0 [facility] Comment on above: Performed By: #### C MP ####[facility] Vejfhziqor103[address] [place], [place] [address]Dr. Airam Tripathi Calcium [Mass/Vol] 7.9 mg/dL Critically low 8.5-10.1 [facility] Comment on above: Performed By: #### C MP ####[facility] Actrevkuki260[address] [place] [address]Dr. Airam Tripathi Chloride [Moles/Vol] 97 mmol/L Critically low 98-107 [facility] Comment on above: Performed By: #### C MP ####[facility] Tbzvddwdxz718[address] [place], [place] [address]Dr. Airam Tripathi CO2 [Moles/Vol] 27.3 mmol/L Normal 21.0-32.0 [facility] Comment on above: Performed By: #### C MP ####[facility] Wqhddfjsmg320[address] [place], [place] [address]Dr. Airam Tripathi Creatinine [Mass/Vol] 1.58 mg/dL Critically high 0.55-1.02 [facility] Comment on above: Performed By: #### C MP ####[facility] Grxzhxrebg989[address] [place], [place] [address]Dr. Airam Tripathi EGFR-AF ARGENTINE 40 mL/min/1.73m2 Critically low >=60 [facility] Comment on above: Performed By: #### C MP ####[facility] Aljtulpoqw020[address] [place], [place] [address]Dr. Airam Tripathi EGFR-NON AF ARGENTINE 33 mL/min/1.73m2 Critically low >=60 [facility] Comment on above: Performed By: #### C MP ####[facility] Uxaykplgpp2712[address] [place], [place] [address]Dr. Airam Tripathi Globulin (S) [Mass/Vol] 2.8 g/dL Normal [facility] Comment on above: Performed By: #### C MP ####[facility] Ohbbavfewo710[address] [place], [place] [address]Dr. Airam Tripathi Glucose [Mass/Vol] 111 mg/dL Critically high 74-106 [facility] Comment on above: Performed By: #### C MP ####[facility] Onhwtpjbrl936[address] [place], [place] [address]Dr. Airam Tripathi Potassium [Moles/Vol] 4.8 mmol/L Normal 3.5-5.1 [facility] Comment on above: Performed By: #### C MP ####[facility] Yxppagcqkk7723[address] [place], [place] [address]Dr. Airam Tripathi Protein [Mass/Vol] 5.8 g/dL Critically low 6.4-8.2 [facility] Comment on above: Performed By: #### C MP ####[facility] Ybrsstvsga779[address] [place], [place] [address]Dr. Airam Deuce Sodium [Moles/Vol] 129 mmol/L Critically low 136-145 [facility] Comment on above: Performed By: #### C MP ####[facility] Xldlfhiavf284[address] [place], [place] [address]Dr. Selenaneil Deuce Urea nitrogen [Mass/Vol] 44.0 mg/dL Critically high 7.0-18.0 [facility] Comment on above: Performed By: #### C MP ####[facility] Qfpcevyvbd150[address] [place], [place] [address]Dr. Selenaneil Tripathi Urea nitrogen/Creatinine [Mass ratio] 27.8 mg/mg Normal [facility] Comment on above: Performed By: #### C MP ####[facility] Mllcsprxwl[address] [place], [place] [address]DrKianna Airam Deuce OSMOLALITYon 08-28-2022 Osmolality [Osmolality] 288 mosm/kg Normal 275-295 [facility] Comment on above: Performed By: #### O SMO ####[facility] Ksdiblzuxg29[address] [place], [place] [address]Dr. Airam Deuce CBC AUTO DIFFon 08-25-2022 BASO # 0.0 103/ul Normal 0.0-0.1 [facility] Comment on above: Performed By: #### C BC ####[facility] Lwzafaykva77[address] [place], [place] [address]Dr. Airam Deuce Basophils/100 WBC (Bld) 0.5 % Normal 0.2-2.0 [facility] Comment on above: Performed By: #### C BC ####[facility] Nxouvziucy759[address] [place], [place] [address]Dr. Airam Tripathi EO # 0.4 103/ul Normal 0.0-0.7 [facility] Comment on above: Performed By: #### C BC ####[facility] Xnfvjdxyos60[address] [place] [address]Dr. Airam Tripathi Eosinophils/100 WBC (Bld) 4.8 % Normal 0.9-7.0 [facility] Comment on above: Performed By: #### C BC ####[facility] Ewvtkaamxe16[address] [place] [address]Dr. Airam Tripathi Erythrocyte distribution width (RBC) [Ratio] 14.2 % Normal 11.0-15.0 [facility] Comment on above: Performed By: #### C BC ####[facility] Dpkkhufuim[address] [place] [address]Dr. iAram Tripathi Hematocrit (Bld) [Volume fraction] 31.1 % Critically low 36.0-48.0 [facility] Comment on above: Performed By: #### C BC ####[facility] Hpvwrnoplq59[address] [place] [address]Dr. Airam Tripathi Hemoglobin (Bld) [Mass/Vol] 9.7 g/dL Critically low 12.0-16.0 [facility] Comment on above: Performed By: #### C BC ####[facility] Brkuggxznz[address] [place] [address]Dr. Airam Tripathi IG # 0.05 10e3/ul Critically high 0.00-0.03 [facility] Comment on above: Performed By: #### C BC ####[facility] Bljxxkzbqn46[address] [place] [address]Dr. Airam Tripathi IG % 0.6 % Critically high 0.0-0.5 [facility] Comment on above: Performed By: #### C BC ####[facility] Wmypnfsqgu20[address] [place] [address]Dr. Airam Tripathi LYMPH # 1.7 103/ul Normal 1.2-3.8 [facility] Comment on above: Performed By: #### C BC ####[facility] Sbmwhrwyju9[address] [place] [address]Dr. Airam Deuce Lymphocytes/100 WBC (Bld) 19.6 % Critically low 20.5-60.0 [facility] Comment on above: Performed By: #### C BC ####[facility] Llavseohkz8[address] [place] [address]Dr. Selenaneil Tripathi MANUAL DIFF REQ NO Normal [facility] Comment on above: Performed By: #### C BC ####[facility] Oajneiwvoq48[address] [place] [address]Dr. Airam Deuce MCH (RBC) [Entitic mass] 28.2 pg Normal 26.7-34.0 [facility] Comment on above: Performed By: #### C BC ####[facility] Vmiypfgqgx[address] [place], [place] [address]Dr. Airam Deuce MCHC (RBC) [Mass/Vol] 31.2 g/dL Normal 29.9-35.2 [facility] Comment on above: Performed By: #### C BC ####[facility] Vdqowhdrzl[address] [place], [place] [address]Dr. Selenaneil Tripathi MCV (RBC) [Entitic vol] 90.4 fL Normal 81.0-99.0 [facility] Comment on above: Performed By: #### C BC ####[facility] Yazvdinitf8[address] [place], [place] [address]Dr. Airam Tripathi MONO # 0.6 103/ul Normal 0.3-0.8 [facility] Comment on above: Performed By: #### C BC ####[facility] Ednajaxnll95[address] [place], [place] [address]Dr. Selenaneil Tripathi Monocytes/100 WBC (Bld) 7.4 % Normal 1.7-12.0 [facility] Comment on above: Performed By: #### C BC ####[facility] Nuaacqzutn[address] [place], [place] [address]Dr. Airam Tripathi NEUT # 5.8 103/ul Normal 1.4-6.5 [facility] Comment on above: Performed By: #### C BC ####[facility] Rntkuauciz64[address] [place] [address]Dr. Airam Tripathi Neutrophils/100 WBC (Bld) 67.1 % Normal 43.0-75.0 [facility] Comment on above: Performed By: #### C BC ####[facility] Edqlkigzsw86[address] [place] [address]Dr. Airam Tripathi Platelet mean volume (Bld) [Entitic vol] 9.9 fL Normal 9.5-13.5 [facility] Comment on above: Performed By: #### C BC ####[facility] Rseupcbtxc694[address] [place], [place] [address]Dr. Airam Tripathi PLT 320 103/ul Normal 150-450 [facility] Comment on above: Performed By: #### C BC ####[facility] Mstvzgmodj874[address] [place], [place] [address]Dr. Airam Tripathi RBC 3.44 106/ul Critically low 4.20-5.40 [facility] Comment on above: Performed By: #### C BC ####[facility] Ykmfwsxfkq86[address] [place], [place] [address]Dr. Selenaneil Deuce WBC 8.6 103/ul Normal 4.0-11.0 [facility] Comment on above: Performed By: #### C BC ####[facility] Pmkwobotdp0035[address] [place], [place] [address]Dr. Airam Tripathi PROF 14(COMP METB)on 023 Albumin [Mass/Vol] 3.4 g/dL Normal 3.4-5.0 [facility] Comment on above: Performed By: #### C MP ####[facility] Qkkbzmvatj816[address] [place], [place] [address]Dr. Airam Tripathi Albumin/Globulin [Mass ratio] 1.1 {ratio} Normal [facility] Comment on above: Performed By: #### C MP ####[facility] Yizvegyadt6438[address] [place], [place] [address]Dr. Selenaneil Deuce ALP [Catalytic activity/Vol] 170 U/L Critically high 46-116 [facility] Comment on above: Performed By: #### C MP ####[facility] Jdrpysetje0506 [place] [address]Dr. Airam Tripathi ALT [Catalytic activity/Vol] 22 U/L Normal 14-59 [facility] Comment on above: Performed By: #### C MP ####[facility] Wjdzcfzaat2006 [place] [address]Dr. Airam Tripathi Anion gap [Moles/Vol] 14.4 mmol/L Normal [facility] Comment on above: Performed By: #### C MP ####[facility] Erzjjnbiyn3516[address] [place], [place] [address]Dr. Airam Tripathi AST [Catalytic activity/Vol] 25 U/L Normal 15-37 [facility] Comment on above: Performed By: #### C MP ####[facility] Uzihpevkxr549[address] [place], [place] [address]Dr. Airam Tripathi Bilirubin [Mass/Vol] 0.3 mg/dL Normal 0.2-1.0 [facility] Comment on above: Performed By: #### C MP ####[facility] Ewwaubowvh400[address] [place], [place] [address]Dr. Airam Tripathi Calcium [Mass/Vol] 8.2 mg/dL Critically low 8.5-10.1 [facility] Comment on above: Performed By: #### C MP ####[facility] Azckrtqwly5544[address] [place], [place] [address]Dr. Airam Tripathi Chloride [Moles/Vol] 98 mmol/L Normal 98-107 [facility] Comment on above: Performed By: #### C MP ####[facility] Bpkjotxrvn8900[address] [place], [place] [address]Dr. Airam Tripathi CO2 [Moles/Vol] 27.8 mmol/L Normal 21.0-32.0 [facility] Comment on above: Performed By: #### C MP ####[facility] Suefcpugeu7432[address] [place], [place] [address]Dr. Airam Tripathi Creatinine [Mass/Vol] 1.82 mg/dL Critically high 0.55-1.02 [facility] Comment on above: Performed By: #### C MP ####[facility] Tgwnoipjnq4601[address] [place], [place] [address]Dr. Airam Deuce EGFR-AF ARGENTINE 34 mL/min/1.73m2 Critically low >=60 [facility] Comment on above: Performed By: #### C MP ####[facility] Jybsqfjjwm5787 [place] [address]Dr. Airam Deuce EGFR-NON AF ARGENTINE 28 mL/min/1.73m2 Critically low >=60 [facility] Comment on above: Performed By: #### C MP ####[facility] Hrwmbbomnw5463 [place] [address]Dr. Airam Deuce Globulin (S) [Mass/Vol] 3.2 g/dL Normal [facility] Comment on above: Performed By: #### C MP ####[facility] Tzjznnmbqq2678 [place] [address]Dr. Airam Tripathi Glucose [Mass/Vol] 78 mg/dL Normal 74-106 [facility] Comment on above: Performed By: #### C MP ####[facility] Icpgcmyxyh0727 [place] [address]Dr. Selenaneil Deuce Potassium [Moles/Vol] 5.2 mmol/L Critically high 3.5-5.1 [facility] Comment on above: Performed By: #### C MP ####[facility] Atbvivxcxy0688[address] [place], [place] [address]Dr. Airam Tripathi Protein [Mass/Vol] 6.6 g/dL Normal 6.4-8.2 [facility] Comment on above: Performed By: #### C MP ####[facility] Vscqeoruuj9513 [place] [address]Dr. Airam Tripathi Sodium [Moles/Vol] 135 mmol/L Critically low 136-145 [facility] Comment on above: Performed By: #### C MP ####[facility] Ixivfbowlu2414 [place] [address]Dr. Selenaneil Deuce Urea nitrogen [Mass/Vol] 51.0 mg/dL Critically high 7.0-18.0 [facility] Comment on above: Performed By: #### C MP ####[facility] Dizycfvtnp6975[address] [place], [place] [address]Dr. Airam Tripathi Urea nitrogen/Creatinine [Mass ratio] 28.0 mg/mg Normal [facility] Comment on above: Performed By: #### C MP ####[facility] Khckgupjio523[address] [place], [place] [address]Dr. Airam Tripathi OSMOLALITYon 08-18-2022 Osmolality [Osmolality] 280 mosm/kg Normal 275-295 [facility] Comment on above: Performed By: #### O SMO ####[facility] Vpnbkjhbxz2730[address] [place], [place] [address]Dr. Airam Tripathi CBC AUTO DIFFon 08-16-2022 BASO # 0.0 103/ul Normal 0.0-0.1 [facility] Comment on above: Performed By: #### C BC ####[facility] Psfemqjimb1368[address] [place], [place] [address]Dr. Airam Deuce Basophils/100 WBC (Bld) 0.2 % Normal 0.2-2.0 [facility] Comment on above: Performed By: #### C BC ####[facility] Pmydclakqz916[address] [place], [place] [address]Dr. Airam Tripathi EO # 0.2 103/ul Normal 0.0-0.7 [facility] Comment on above: Performed By: #### C BC ####[facility] Firmvszejk0526[address] [place], [place] [address]Dr. Airam Tripathi Eosinophils/100 WBC (Bld) 2.4 % Normal 0.9-7.0 [facility] Comment on above: Performed By: #### C BC ####[facility] Evtbludrhu604[address] [place], [place] [address]Dr. Airam Tripathi Erythrocyte distribution width (RBC) [Ratio] 14.2 % Normal 11.0-15.0 [facility] Comment on above: Performed By: #### C BC ####[facility] Eanfvunseb255[address] [place], [place] [address]Dr. Airam Tripathi Hematocrit (Bld) [Volume fraction] 30.1 % Critically low 36.0-48.0 [facility] Comment on above: Performed By: #### C BC ####[facility] Jwgllwezuf9927 [place] [id number]. Airam Tripathi Hemoglobin (Bld) [Mass/Vol] 9.2 g/dL Critically low 12.0-16.0 [facility] Comment on above: Performed By: #### C BC ####[facility] Xllgpayhsr0590 [place] [address]Dr. Airam Tripathi IG # 0.04 10e3/ul Critically high 0.00-0.03 [facility] Comment on above: Performed By: #### C BC ####[facility] Pvtoycmnht0716 [place] [address]Dr. Airam Tripathi IG % 0.4 % Normal 0.0-0.5 [facility] Comment on above: Performed By: #### C BC ####[facility] Nrwvgefggh9511 [place] [address]Dr. Airam Tripathi LYMPH # 0.9 103/ul Critically low 1.2-3.8 [facility] Comment on above: Performed By: #### C BC ####[facility] Zywtcgmhsg3694 [place] [address]Dr. Airam Tripathi Lymphocytes/100 WBC (Bld) 9.3 % Critically low 20.5-60.0 [facility] Comment on above: Performed By: #### C BC ####[facility] Musfhkycmd0967 [place] [address]Dr. Airam Tripathi MANUAL DIFF REQ NO Normal [facility] Comment on above: Performed By: #### C BC ####[facility] Mrzjvzjkri087[address] [place], [place] [address]Dr. Airam Tripathi MCH (RBC) [Entitic mass] 27.7 pg Normal 26.7-34.0 [facility] Comment on above: Performed By: #### C BC ####[facility] Wukugjnyvc15[address] [place], [place] [address]Dr. Airam Tripathi MCHC (RBC) [Mass/Vol] 30.6 g/dL Normal 29.9-35.2 [facility] Comment on above: Performed By: #### C BC ####[facility] Lwjmbouqma4876 [place] [phone]. Airam Tripathi MCV (RBC) [Entitic vol] 90.7 fL Normal 81.0-99.0 [facility] Comment on above: Performed By: #### C BC ####[facility] Vcxsdpmtyh7298 [place] [phone]. Airam Tripathi MONO # 0.5 103/ul Normal 0.3-0.8 [facility] Comment on above: Performed By: #### C BC ####[facility] Rvgnskdhmd3905 [place] [phone]. Airam Tripathi Monocytes/100 WBC (Bld) 5.3 % Normal 1.7-12.0 [facility] Comment on above: Performed By: #### C BC ####[facility] Qjybhltlxc0799[address] [place], [place] [address]Dr. Airam Tripathi NEUT # 7.7 103/ul Critically high 1.4-6.5 [facility] Comment on above: Performed By: #### C BC ####[facility] Rziafbzqzu137[address] [place], [place] [address]Dr. Airam Tripathi Neutrophils/100 WBC (Bld) 82.4 % Critically high 43.0-75.0 [facility] Comment on above: Performed By: #### C BC ####[facility] Ftglcmoznx0435[address] [place], [place] [address]Dr. Airam Tripathi Platelet mean volume (Bld) [Entitic vol] 9.8 fL Normal 9.5-13.5 [facility] Comment on above: Performed By: #### C BC ####[facility] Ryrwwcrgbj003[address] [place], [place] [id number]. Airam Tripathi PLT 285 103/ul Normal 150-450 [facility] Comment on above: Performed By: #### C BC ####[facility] Xwtaqfmeyk198[address] [place], [place] [id number]. Airam Tripathi RBC 3.32 106/ul Critically low 4.20-5.40 [facility] Comment on above: Performed By: #### C BC ####[facility] Pvqckwvfii8780 [place] [address]Dr. Airam Tripathi WBC 9.4 103/ul Normal 4.0-11.0 [facility] Comment on above: Performed By: #### C BC ####[facility] Rifxctckpz5698 [place] [address]Dr. Airam Tripathi MRI WRIST RT WO CONon 2022 MRI WRIST RT WO CON Normal [facility] PROF 14(COMP METB)on 023 Albumin [Mass/Vol] 3.1 g/dL Critically low 3.4-5.0 [facility] Comment on above: Performed By: #### C MP ####[facility] Teyrhwvjii508[address] [place], [place] [address]Dr. Airam Tripathi Albumin/Globulin [Mass ratio] 0.9 {ratio} Normal [facility] Comment on above: Performed By: #### C MP ####[facility] Txakjqqjxs274[address] [place], [place] [address]Dr. Airam Tripathi ALP [Catalytic activity/Vol] 162 U/L Critically high 46-116 [facility] Comment on above: Performed By: #### C MP ####[facility] Cmtmjdowvr8209 [place] [address]Dr. Airam Tripathi ALT [Catalytic activity/Vol] 19 U/L Normal 14-59 [facility] Comment on above: Performed By: #### C MP ####[facility] Wtuzcufoxw0218 [place] [address]Dr. Airam Tripathi Anion gap [Moles/Vol] 13.0 mmol/L Normal [facility] Comment on above: Performed By: #### C MP ####[facility] Eutnycoyvf7571 [place] [address]Dr. Airam Tripathi AST [Catalytic activity/Vol] 21 U/L Normal 15-37 [facility] Comment on above: Performed By: #### C MP ####[facility] Hxpbnvsltq1207 [place] [address]Dr. Airam Tripathi Bilirubin [Mass/Vol] 0.3 mg/dL Normal 0.2-1.0 [facility] Comment on above: Performed By: #### C MP ####[facility] Hjreaxkyof9911 [place] [address]Dr. Airam Tripathi Calcium [Mass/Vol] 8.4 mg/dL Critically low 8.5-10.1 [facility] Comment on above: Performed By: #### C MP ####[facility] Qczbmqlyox1648 [place] [address]Dr. Airam Tripathi Chloride [Moles/Vol] 103 mmol/L Normal 98-107 [facility] Comment on above: Performed By: #### C MP ####[facility] Dltjdutrht3239 [place] [address]Dr. Airam Tripathi CO2 [Moles/Vol] 23.3 mmol/L Normal 21.0-32.0 [facility] Comment on above: Performed By: #### C MP ####[facility] Xmyiggkcfc4710[address] [place], [place] [address]Dr. Airam Tripathi Creatinine [Mass/Vol] 1.02 mg/dL Normal 0.55-1.02 [facility] Comment on above: Performed By: #### C MP ####[facility] Gkmzqoxdck309[address] [place], [place] [address]Dr. Airam Tripathi EGFR-AF ARGENTINE >60 Normal >=60 [facility] Comment on above: Performed By: #### C MP ####[facility] Pdeugddifb4039 [place] [address]Dr. Airam Tripathi EGFR-NON AF ARGENTINE 55 mL/min/1.73m2 Critically low >=60 [facility] Comment on above: Performed By: #### C MP ####[facility] Cxzthqnyuj4396 [place] [address]Dr. Airam Tripathi Globulin (S) [Mass/Vol] 3.4 g/dL Normal [facility] Comment on above: Performed By: #### C MP ####[facility] Hroehgmjtb5721 [place] [address]Dr. Airam Tripathi Glucose [Mass/Vol] 88 mg/dL Normal 74-106 [facility] Comment on above: Performed By: #### C MP ####[facility] Oxkflzxhbs8590 [place] [phone]. Airam Tripathi Potassium [Moles/Vol] 4.3 mmol/L Normal 3.5-5.1 [facility] Comment on above: Performed By: #### C MP ####[facility] Gzikpdeirq6705 [place] [address]Dr. Airam Tripathi Protein [Mass/Vol] 6.5 g/dL Normal 6.4-8.2 [facility] Comment on above: Performed By: #### C MP ####[facility] Evkxvyapce2099[address] [place], [place] [address]Dr. Airam Tripathi Sodium [Moles/Vol] 135 mmol/L Critically low 136-145 [facility] Comment on above: Performed By: #### C MP ####[facility] Yhyrqwshde689[address] [place], [place] [address]Dr. Airam Tripathi Urea nitrogen [Mass/Vol] 27.0 mg/dL Critically high 7.0-18.0 [facility] Comment on above: Performed By: #### C MP ####[facility] Mbezsoehof640[address] [place], [place] [address]Dr. Airam Tripathi Urea nitrogen/Creatinine [Mass ratio] 26.5 mg/mg Normal [facility] Comment on above: Performed By: #### C MP ####[facility] Wtzxmotwsp615[address] [place], [place] [address]Dr. Airam Tripathi CT HEAD WO CONon 08-06-2022 CT HEAD WO CON Normal [facility] CT LSPINE WO CONon 3 CT LSPINE WO CON Normal [facility] XR HAND RT MIN 3Von 08-06-19 23 XR HAND RT MIN 3V Normal [facility] XR KNEE LT 4V or >on 023 XR KNEE LT 4V or > Normal [facility] XR WRIST RT MIN 3 Von 2022 XR WRIST RT MIN 3 V Normal [facility] OSMOLALITYon 08-05-2022 Osmolality [Osmolality] 282 mosm/kg Normal 275-295 [facility] Comment on above: Performed By: #### O SMO ####[facility] Dzsvgpxthc5268 [place] [id number]. Airam Tripathi CBC AUTO DIFFon 08-03-2022 BASO # 0.0 103/ul Normal 0.0-0.1 [facility] Comment on above: Performed By: #### C BC ####[facility] Wqqlchffjk0388 [place] [phone]. Selenaneil Tripathi Basophils/100 WBC (Bld) 0.5 % Normal 0.2-2.0 [facility] Comment on above: Performed By: #### C BC ####[facility] Vfklnmhotr8435[address] [place], [place] [address]Dr. Airam Deuce EO # 0.5 103/ul Normal 0.0-0.7 [facility] Comment on above: Performed By: #### C BC ####[facility] Wzkgnpajnv279[address] [place], [place] [address]Dr. Selenaneil Tripathi Eosinophils/100 WBC (Bld) 5.2 % Normal 0.9-7.0 [facility] Comment on above: Performed By: #### C BC ####[facility] Sepragunkt105[address] [place], [place] [address]Dr. Airam Tripathi Erythrocyte distribution width (RBC) [Ratio] 14.3 % Normal 11.0-15.0 [facility] Comment on above: Performed By: #### C BC ####[facility] Txnodysidt246[address] [place], [place] [address]Dr. Airam Tripathi Hematocrit (Bld) [Volume fraction] 31.4 % Critically low 36.0-48.0 [facility] Comment on above: Performed By: #### C BC ####[facility] Kldxjrbbcm089[address] [place], [place] [address]Dr. Airam Tripathi Hemoglobin (Bld) [Mass/Vol] 9.5 g/dL Critically low 12.0-16.0 [facility] Comment on above: Performed By: #### C BC ####[facility] Qhlheobgvf317[address] [place], [place] [address]Dr. Airam Tripathi IG # 0.05 10e3/ul Critically high 0.00-0.03 [facility] Comment on above: Performed By: #### C BC ####[facility] Vqgcnwwnze9513 [place] [address]Dr. Airam Tripathi IG % 0.6 % Critically high 0.0-0.5 [facility] Comment on above: Performed By: #### C BC ####[facility] Bojtqoddba7643 [place] [address]Dr. Airam Deuce LYMPH # 1.5 103/ul Normal 1.2-3.8 [facility] Comment on above: Performed By: #### C BC ####[facility] Bhsceiwnvy6364[address] [place], [place] [address]Dr. Selenaneil Tripathi Lymphocytes/100 WBC (Bld) 17.6 % Critically low 20.5-60.0 [facility] Comment on above: Performed By: #### C BC ####[facility] Dsldojeipt064[address] [place], [place] [address]Dr. Selenaneil Tripathi MANUAL DIFF REQ NO Normal [facility] Comment on above: Performed By: #### C BC ####[facility] Oqeyjgkzqk29[address] [place], [place] [address]Dr. Airam Deuce MCH (RBC) [Entitic mass] 29.0 pg Normal 26.7-34.0 [facility] Comment on above: Performed By: #### C BC ####[facility] Rcrccvyvgh220[address] [place], [place] [address]Dr. Airam Tripathi MCHC (RBC) [Mass/Vol] 30.3 g/dL Normal 29.9-35.2 [facility] Comment on above: Performed By: #### C BC ####[facility] Xhcqgmmphy237[address] [place], [place] [address]DrKianna Airam Deuce MCV (RBC) [Entitic vol] 95.7 fL Normal 81.0-99.0 [facility] Comment on above: Performed By: #### C BC ####[facility] Bjekqfdrjl717[address] [place], [place] [address]DrKianna Tripathi MONO # 0.7 103/ul Normal 0.3-0.8 [facility] Comment on above: Performed By: #### C BC ####[facility] Bkcqzbhlqe2591 [place] [id number]. Airam Tripathi Monocytes/100 WBC (Bld) 8.5 % Normal 1.7-12.0 [facility] Comment on above: Performed By: #### C BC ####[facility] Sbbvwxueso2572 [place] [id number]. Airam Tripathi NEUT # 5.8 103/ul Normal 1.4-6.5 [facility] Comment on above: Performed By: #### C BC ####[facility] Dteebhvkmg1361 [place] [id number]. Airam Tripathi Neutrophils/100 WBC (Bld) 67.6 % Normal 43.0-75.0 [facility] Comment on above: Performed By: #### C BC ####[facility] Xzdkuzlmwa5290 [place] [id number]. Airam Tripathi Platelet mean volume (Bld) [Entitic vol] 9.5 fL Normal 9.5-13.5 [facility] Comment on above: Performed By: #### C BC ####[facility] Vgtgoqbdmp1217 [place] [id number]. Airam Tripathi PLT 292 103/ul Normal 150-450 [facility] Comment on above: Performed By: #### C BC ####[facility] Bfdtefbdos1574 [place] [id number]. Airam Tripathi RBC 3.28 106/ul Critically low 4.20-5.40 [facility] Comment on above: Performed By: #### C BC ####[facility] Iggvqhpgve9080 [place] [id number]. Airam Tripathi WBC 8.6 103/ul Normal 4.0-11.0 [facility] Comment on above: Performed By: #### C BC ####[facility] Sqczbaosho3714 [place] [id number] Tripathi PROF 14(COMP METB)on 023 Albumin [Mass/Vol] 3.0 g/dL Critically low 3.4-5.0 [facility] Comment on above: Performed By: #### C MP ####[facility] Rktwyhwjri9674 [place] [address]Dr. Airam Deuce Albumin/Globulin [Mass ratio] 0.9 {ratio} Normal [facility] Comment on above: Performed By: #### C MP ####[facility] Fisnjghfzb8239 [place] [address]Dr. Airam Deuce ALP [Catalytic activity/Vol] 184 U/L Critically high 46-116 [facility] Comment on above: Performed By: #### C MP ####[facility] Ifowbnvhuy790[address] [place], [place] [address]Dr. Airam Deuce ALT [Catalytic activity/Vol] 18 U/L Normal 14-59 [facility] Comment on above: Performed By: #### C MP ####[facility] Zoisswvelr618[address] [place], [place] [address]Dr. Airam Tripathi Anion gap [Moles/Vol] 11.2 mmol/L Normal [facility] Comment on above: Performed By: #### C MP ####[facility] Legxjzyofb0937[address] [place], [place] [address]Dr. Airam Deuce AST [Catalytic activity/Vol] 19 U/L Normal 15-37 [facility] Comment on above: Performed By: #### C MP ####[facility] Tgoqkudths9264[address] [place], [place] [address]Dr. Airam Tripathi Bilirubin [Mass/Vol] 0.3 mg/dL Normal 0.2-1.0 [facility] Comment on above: Performed By: #### C MP ####[facility] Zszrqlqpfl749[address] [place], [place] [address]Dr. Airam Tripathi Calcium [Mass/Vol] 8.8 mg/dL Normal 8.5-10.1 [facility] Comment on above: Performed By: #### C MP ####[facility] Aqubsrlall916[address] [place], [place] [address]Dr. Airam Tripathi Chloride [Moles/Vol] 101 mmol/L Normal 98-107 [facility] Comment on above: Performed By: #### C MP ####[facility] Bgtwxzwyvx1499 [place] [id number]. Airam Tripathi CO2 [Moles/Vol] 25.4 mmol/L Normal 21.0-32.0 [facility] Comment on above: Performed By: #### C MP ####[facility] Ujogogklep2930 [place] [id number]. Airam Tripathi Creatinine [Mass/Vol] 1.05 mg/dL Critically high 0.55-1.02 [facility] Comment on above: Performed By: #### C MP ####[facility] Wfyridyukk2652 [place] [address]Dr. Airam Tripathi EGFR-AF ARGENTINE >60 Normal >=60 [facility] Comment on above: Performed By: #### C MP ####[facility] Mzkunrzgly277[address] [place], [place] [address]Dr. Airam Tripathi EGFR-NON AF ARGENTINE 53 mL/min/1.73m2 Critically low >=60 [facility] Comment on above: Performed By: #### C MP ####[facility] Jtppbzgkkn9044 [place] [address]Dr. Airam Tripathi Globulin (S) [Mass/Vol] 3.4 g/dL Normal [facility] Comment on above: Performed By: #### C MP ####[facility] Mxzijbgsfm4813[address] [place], [place] [address]Dr. Airam Tripathi Glucose [Mass/Vol] 78 mg/dL Normal 74-106 [facility] Comment on above: Performed By: #### C MP ####[facility] Qgbrrqxqnz785[address] [place], [place] [address]Dr. Airam Tripathi Potassium [Moles/Vol] 4.6 mmol/L Normal 3.5-5.1 [facility] Comment on above: Performed By: #### C MP ####[facility] Zdozdydiat2997 [place] [address]Dr. Airam Tripathi Protein [Mass/Vol] 6.4 g/dL Normal 6.4-8.2 [facility] Comment on above: Performed By: #### C MP ####[facility] Cmundxzlgz0062 [place] [id number]. Airam Tripathi Sodium [Moles/Vol] 133 mmol/L Critically low 136-145 [facility] Comment on above: Performed By: #### C MP ####[facility] Fmrcqcsjmk22[address] [place], [place] [address]Dr. Airam Tripathi Urea nitrogen [Mass/Vol] 26.0 mg/dL Critically high 7.0-18.0 [facility] Comment on above: Performed By: #### C MP ####[facility] Qqmbjlcjry839[address] [place], [place] [address]Dr. Airam Tripathi Urea nitrogen/Creatinine [Mass ratio] 24.8 mg/mg Normal [facility] Comment on above: Performed By: #### C MP ####[facility] Wmujcanwjq318[address] [place], [place] [address]Dr. Airam Tripathi OSMOLALITYon 07-29-2022 Osmolality [Osmolality] 287 mosm/kg Normal 275-295 [facility] Comment on above: Performed By: #### O SMO ####[facility] Oyvmpsjvvh986[address] [place], [place] [address]Dr. Airam Tripathi CBC AUTO DIFFon 07-27-2022 BASO # 0.0 103/ul Normal 0.0-0.1 [facility] Comment on above: Performed By: #### C BC ####[facility] Jgvtjvzybb6973 [place] [address]Dr. Airam Deuce Basophils/100 WBC (Bld) 0.4 % Normal 0.2-2.0 [facility] Comment on above: Performed By: #### C BC ####[facility] Lbhtkvtkxg14[address] [place], [place] [address]Dr. Airam Deuce EO # 0.2 103/ul Normal 0.0-0.7 [facility] Comment on above: Performed By: #### C BC ####[facility] Dxxfrtiymd50[address] [place], [place] [address]Dr. Airam Deuce Eosinophils/100 WBC (Bld) 2.6 % Normal 0.9-7.0 [facility] Comment on above: Performed By: #### C BC ####[facility] Iqcojwqepr384[address] [place], [place] [address]Dr. Airam Tripathi Erythrocyte distribution width (RBC) [Ratio] 14.2 % Normal 11.0-15.0 [facility] Comment on above: Performed By: #### C BC ####[facility] Sfanftxjct023[address] [place], [place] [address]Dr. Airam Tripathi Hematocrit (Bld) [Volume fraction] 31.3 % Critically low 36.0-48.0 [facility] Comment on above: Performed By: #### C BC ####[facility] Ukkrhpjvvd98[address] [place], [place] [address]Dr. Airam Tripathi Hemoglobin (Bld) [Mass/Vol] 9.3 g/dL Critically low 12.0-16.0 [facility] Comment on above: Performed By: #### C BC ####[facility] Fsbwrkalen60[address] [place], [place] [address]Dr. Airam Tripathi IG # 0.05 10e3/ul Critically high 0.00-0.03 [facility] Comment on above: Performed By: #### C BC ####[facility] Rqcrhcycid647[address] [place], [place] [address]Dr. Airam Tripathi IG % 0.7 % Critically high 0.0-0.5 [facility] Comment on above: Performed By: #### C BC ####[facility] Wqfoixlicj712[address] [place], [place] [address]Dr. Airam Tripathi LYMPH # 1.0 103/ul Critically low 1.2-3.8 [facility] Comment on above: Performed By: #### C BC ####[facility] Rcjiuqzgal892[address] [place], [place] [address]Dr. Airam Tripathi Lymphocytes/100 WBC (Bld) 13.4 % Critically low 20.5-60.0 [facility] Comment on above: Performed By: #### C BC ####[facility] Rsxdzxvdup529[address] [place], [place] [address]Dr. Airam Tripathi MANUAL DIFF REQ NO Normal [facility] Comment on above: Performed By: #### C BC ####[facility] Pxulhtdaob5[address] [place] [id number]. Airam Deuce MCH (RBC) [Entitic mass] 28.8 pg Normal 26.7-34.0 [facility] Comment on above: Performed By: #### C BC ####[facility] Ipgxmhazev[address] [place] [address]Dr. Airam Deuce MCHC (RBC) [Mass/Vol] 29.7 g/dL Critically low 29.9-35.2 [facility] Comment on above: Performed By: #### C BC ####[facility] Qfxuswrest85[address] [place] [address]Dr. Airam Tripathi MCV (RBC) [Entitic vol] 96.9 fL Normal 81.0-99.0 [facility] Comment on above: Performed By: #### C BC ####[facility] Grdrsbqvls[address] [place], [place] [address]Dr. Airam Tripathi MONO # 0.5 103/ul Normal 0.3-0.8 [facility] Comment on above: Performed By: #### C BC ####[facility] Sqogpdsdil054[address] [place], [place] [address]Dr. Airam Tripathi Monocytes/100 WBC (Bld) 6.3 % Normal 1.7-12.0 [facility] Comment on above: Performed By: #### C BC ####[facility] Yamjhuilcn936[address] [place], [place] [address]Dr. Airam Tripathi NEUT # 5.8 103/ul Normal 1.4-6.5 [facility] Comment on above: Performed By: #### C BC ####[facility] Iskgjohrdp05[address] [place], [place] [address]Dr. Airam Tripathi Neutrophils/100 WBC (Bld) 76.6 % Critically high 43.0-75.0 [facility] Comment on above: Performed By: #### C BC ####[facility] Qfiruudete4420[address] [place], [place] [address]Dr. Airam Tripathi Platelet mean volume (Bld) [Entitic vol] 10.3 fL Normal 9.5-13.5 [facility] Comment on above: Performed By: #### C BC ####[facility] Yfvdeknnud13[address] [place] [address]Dr. Selenaneil Deuce PLT 265 103/ul Normal 150-450 [facility] Comment on above: Performed By: #### C BC ####[facility] Tzdspxqqfe5394 [place] [id number]. Selenaneil Tripathi RBC 3.23 106/ul Critically low 4.20-5.40 [facility] Comment on above: Performed By: #### C BC ####[facility] Soztcrmnsu25[address] [place] [address]Dr. Selenaneil Deuce WBC 7.6 103/ul Normal 4.0-11.0 [facility] Comment on above: Performed By: #### C BC ####[facility] Mhwcmqwfbz26[address] [place] [address]Dr. Airam Tripathi PROF 14(COMP METB)on 023 Albumin [Mass/Vol] 2.9 g/dL Critically low 3.4-5.0 [facility] Comment on above: Performed By: #### C MP ####[facility] Pximwfcpyi2490[address] [place], [place] [address]Dr. Airam Tripathi Albumin/Globulin [Mass ratio] 0.8 {ratio} Normal [facility] Comment on above: Performed By: #### C MP ####[facility] Kaxlswzedf47[address] [place] [address]Dr. Airam Tripathi ALP [Catalytic activity/Vol] 175 U/L Critically high 46-116 [facility] Comment on above: Performed By: #### C MP ####[facility] Ecjxqtmzdd0339 [place] [address]Dr. Airam Tripathi ALT [Catalytic activity/Vol] 24 U/L Normal 14-59 [facility] Comment on above: Performed By: #### C MP ####[facility] Qwkwqifpms6908 [place] [address]Dr. Airam Tripathi Anion gap [Moles/Vol] 14.3 mmol/L Normal [facility] Comment on above: Performed By: #### C MP ####[facility] Csmvqapmxi65[address] [place] [address]Dr. Airam Tripathi AST [Catalytic activity/Vol] 25 U/L Normal 15-37 [facility] Comment on above: Performed By: #### C MP ####[facility] Oyybfvmiyg2134 [place] [address]Dr. Airam Tripathi Bilirubin [Mass/Vol] 0.2 mg/dL Normal 0.2-1.0 [facility] Comment on above: Performed By: #### C MP ####[facility] Bkcwqxkdat24[address] [place], [place] [address]Dr. Airam Tripathi Calcium [Mass/Vol] 8.6 mg/dL Normal 8.5-10.1 [facility] Comment on above: Performed By: #### C MP ####[facility] Rqzkeaidtv600[address] [place], [place] [address]Dr. Airam Tripathi Chloride [Moles/Vol] 102 mmol/L Normal 98-107 [facility] Comment on above: Performed By: #### C MP ####[facility] Xsjaoavbge554[address] [place], [place] [address]Dr. Airam Tripathi CO2 [Moles/Vol] 23.7 mmol/L Normal 21.0-32.0 [facility] Comment on above: Performed By: #### C MP ####[facility] Haomaiqwrn1230[address] [place], [place] [address]Dr. Airam Tripathi Creatinine [Mass/Vol] 1.29 mg/dL Critically high 0.55-1.02 [facility] Comment on above: Performed By: #### C MP ####[facility] Bbnduvkrps956[address] [place], [place] [address]Dr. Airam Tripathi EGFR-AF ARGENTINE 51 mL/min/1.73m2 Critically low >=60 [facility] Comment on above: Performed By: #### C MP ####[facility] Arhaumbuwd327[address] [place], [place] [address]Dr. Airam Deuce EGFR-NON AF ARGENTINE 42 mL/min/1.73m2 Critically low >=60 [facility] Comment on above: Performed By: #### C MP ####[facility] Hrpzyjpmod8810 [place] [address]Dr. Airam Tripathi Globulin (S) [Mass/Vol] 3.6 g/dL Normal [facility] Comment on above: Performed By: #### C MP ####[facility] Thxjeupmqw6227 [place] [address]Dr. Airam Tripathi Glucose [Mass/Vol] 84 mg/dL Normal 74-106 [facility] Comment on above: Performed By: #### C MP ####[facility] Pfymkpuibg363[address] [place], [place] [address]Dr. Airam Deuce Potassium [Moles/Vol] 5.0 mmol/L Normal 3.5-5.1 [facility] Comment on above: Performed By: #### C MP ####[facility] Czilvnxeml598[address] [place], [place] [address]Dr. Airam Tripathi Protein [Mass/Vol] 6.5 g/dL Normal 6.4-8.2 [facility] Comment on above: Performed By: #### C MP ####[facility] Wgntshtima886[address] [place], [place] [address]Dr. Airam Deuce Sodium [Moles/Vol] 135 mmol/L Critically low 136-145 [facility] Comment on above: Performed By: #### C MP ####[facility] Sjrjqmkkml937[address] [place], [place] [address]Dr. Selenaneil Deuce Urea nitrogen [Mass/Vol] 28.0 mg/dL Critically high 7.0-18.0 [facility] Comment on above: Performed By: #### C MP ####[facility] Dosikyeivd913[address] [place], [place] [address]Dr. Selenaneil Deuce Urea nitrogen/Creatinine [Mass ratio] 21.7 mg/mg Normal [facility] Comment on above: Performed By: #### C MP ####[facility] Xmvnubuvxz919[address] [place], [place] [address]Dr. Airam Tripathi XR LSPINE MIN 4 VIEWSon 02-0 XR LSPINE MIN 4 VIEWS Normal [facility] OSMOLALITYon 07-24-2022 Osmolality [Osmolality] 279 mosm/kg Normal 275-295 [facility] Comment on above: Performed By: #### O SMO ####[facility] Ettulwkqnd9522[address] [place], [place] [address]Dr. Airam Tripathi CBC AUTO DIFFon 07-21-2022 BASO # 0.0 103/ul Normal 0.0-0.1 [facility] Comment on above: Performed By: #### C BC ####[facility] Qfnzfkkrlj3950[address] [place], [place] [address]Dr. Airam Tripathi Basophils/100 WBC (Bld) 0.4 % Normal 0.2-2.0 [facility] Comment on above: Performed By: #### C BC ####[facility] Unlwegnwva037[address] [place], [place] [address]Dr. Airam Tripathi EO # 0.2 103/ul Normal 0.0-0.7 [facility] Comment on above: Performed By: #### C BC ####[facility] Mrufenpwoe643[address] [place], [place] [address]Dr. Airam Tripathi Eosinophils/100 WBC (Bld) 2.3 % Normal 0.9-7.0 [facility] Comment on above: Performed By: #### C BC ####[facility] Nhjwgtxiwn353[address] [place], [place] [address]Dr. Airam Tripathi Erythrocyte distribution width (RBC) [Ratio] 13.6 % Normal 11.0-15.0 [facility] Comment on above: Performed By: #### C BC ####[facility] Deqtmruqgb6617[address] [place], [place] [address]Dr. Airam Tripathi Hematocrit (Bld) [Volume fraction] 32.6 % Critically low 36.0-48.0 [facility] Comment on above: Performed By: #### C BC ####[facility] Rgfwxsjnpc534[address] [place], [place] [address]Dr. Airam Tripathi Hemoglobin (Bld) [Mass/Vol] 9.5 g/dL Critically low 12.0-16.0 [facility] Comment on above: Performed By: #### C BC ####[facility] Z[address]aczsk[address] [place] [id number]. Airam Tripathi IG # 0.03 10e3/ul Normal 0.00-0.03 [facility] Comment on above: Performed By: #### C BC ####[facility] Bdivmzdxck5031 [place] [address]Dr. Airam Tripathi IG % 0.4 % Normal 0.0-0.5 [facility] Comment on above: Performed By: #### C BC ####[facility] Xpgjipklhd0734 [place] [address]Dr. Airam Deuce LYMPH # 1.4 103/ul Normal 1.2-3.8 [facility] Comment on above: Performed By: #### C BC ####[facility] Pixxunxgve3896 [place] [address]Dr. Airam Deuce Lymphocytes/100 WBC (Bld) 18.2 % Critically low 20.5-60.0 [facility] Comment on above: Performed By: #### C BC ####[facility] Ykdbnefjea4824 [place] [address]Dr. Airam Deuce MANUAL DIFF REQ NO Normal [facility] Comment on above: Performed By: #### C BC ####[facility] Nzhujcxopj1539 [place] [address]Dr. Airam Tripathi MCH (RBC) [Entitic mass] 29.5 pg Normal 26.7-34.0 [facility] Comment on above: Performed By: #### C BC ####[facility] Pmuefplqus8122 [place] [address]Dr. Airam Tripathi MCHC (RBC) [Mass/Vol] 29.1 g/dL Critically low 29.9-35.2 [facility] Comment on above: Performed By: #### C BC ####[facility] Icfynqjqqo6234 [place] [address]DrKianna Airam Tripathi MCV (RBC) [Entitic vol] 101.2 fL Critically high 81.0-99.0 [facility] Comment on above: Performed By: #### C BC ####[facility] Ypfdjsoufg4039 [place] [address]Dr. Airam Tripathi MONO # 0.6 103/ul Normal 0.3-0.8 [facility] Comment on above: Performed By: #### C BC ####[facility] Axhzekkwdm6204 [place] [address]Dr. Airam Tripathi Monocytes/100 WBC (Bld) 7.9 % Normal 1.7-12.0 [facility] Comment on above: Performed By: #### C BC ####[facility] Nteakkybtv478[address] [place], [place] [address]Dr. Airam Tripathi NEUT # 5.5 103/ul Normal 1.4-6.5 [facility] Comment on above: Performed By: #### C BC ####[facility] Spgpihzrwj3877[address] [place], [place] [address]Dr. Airam Tripathi Neutrophils/100 WBC (Bld) 70.8 % Normal 43.0-75.0 [facility] Comment on above: Performed By: #### C BC ####[facility] Rvytiysxqj279[address] [place], [place] [address]Dr. Airam Tripathi Platelet mean volume (Bld) [Entitic vol] 9.6 fL Normal 9.5-13.5 [facility] Comment on above: Performed By: #### C BC ####[facility] Fubmzibyux449[address] [place], [place] [address]Dr. Airam Deuce PLT 265 103/ul Normal 150-450 [facility] Comment on above: Performed By: #### C BC ####[facility] Nupbuwflvk8087[address] [place], [place] [address]Dr. Airam Tripathi RBC 3.22 106/ul Critically low 4.20-5.40 [facility] Comment on above: Performed By: #### C BC ####[facility] Munhyermnl050[address] [place], [place] [address]Dr. Airam Deuce WBC 7.8 103/ul Normal 4.0-11.0 [facility] Comment on above: Performed By: #### C BC ####[facility] Sovnnidibh193[address] [place], [place] [address]Dr. Airam Tripathi PROF 14(COMP METB)on 023 Albumin [Mass/Vol] 2.9 g/dL Critically low 3.4-5.0 [facility] Comment on above: Performed By: #### C MP ####[facility] Zkbrfbaipy20[address] [place], [place] [address]Dr. Airam Tripathi Albumin/Globulin [Mass ratio] 0.9 {ratio} Normal [facility] Comment on above: Performed By: #### C MP ####[facility] Dpyshcquic8940[address] [place], [place] [address]Dr. Airam Tripathi ALP [Catalytic activity/Vol] 176 U/L Critically high 46-116 [facility] Comment on above: Performed By: #### C MP ####[facility] Vofnmrhjlc940[address] [place], [place] [address]Dr. Airam Tripathi ALT [Catalytic activity/Vol] 19 U/L Normal 14-59 [facility] Comment on above: Performed By: #### C MP ####[facility] Jadvizzgrc205493 [address] [place], [place] [address]Dr. Airam Tripathi Anion gap [Moles/Vol] 12.6 mmol/L Normal [facility] Comment on above: Performed By: #### C MP ####[facility] Caqqqnhqnh310[address] [place], [place] [address]Dr. Airam Tripathi AST [Catalytic activity/Vol] 25 U/L Normal 15-37 [facility] Comment on above: Performed By: #### C MP ####[facility] Muygcqdugo2522[address] [place], [place] [address]Dr. Airam Tripathi Bilirubin [Mass/Vol] 0.2 mg/dL Normal 0.2-1.0 [facility] Comment on above: Performed By: #### C MP ####[facility] Aekvzpffka7522[address] [place], [place] [address]Dr. Airam Tripathi Calcium [Mass/Vol] 8.5 mg/dL Normal 8.5-10.1 [facility] Comment on above: Performed By: #### C MP ####[facility] Axfvhvixuw5614[address] [place], [place] [address]Dr. Airam Tripathi Chloride [Moles/Vol] 101 mmol/L Normal 98-107 [facility] Comment on above: Performed By: #### C MP ####[facility] Bhxtqkxgcj7581 [place] [address]Dr. Airam Tripathi CO2 [Moles/Vol] 25.9 mmol/L Normal 21.0-32.0 [facility] Comment on above: Performed By: #### C MP ####[facility] Tbfohuvfrl1208 [place] [address]Dr. Airam Deuce Creatinine [Mass/Vol] 1.11 mg/dL Critically high 0.55-1.02 [facility] Comment on above: Performed By: #### C MP ####[facility] Xmnpolmnyd76119[address] [place], [place] [address]Dr. Airam Deuce EGFR-AF ARGENTINE >60 Normal >=60 [facility] Comment on above: Performed By: #### C MP ####[facility] Rugyjnpqsz646[address] [place], [place] [address]Dr. Airam Deuce EGFR-NON AF ARGENTINE 50 mL/min/1.73m2 Critically low >=60 [facility] Comment on above: Performed By: #### C MP ####[facility] Szqtwtnapo464593 [address] [place], [place] [address]Dr. Airam Deuce Globulin (S) [Mass/Vol] 3.2 g/dL Normal [facility] Comment on above: Performed By: #### C MP ####[facility] Oyxofoynap2540[address] [place], [place] [address]Dr. Airam Deuce Glucose [Mass/Vol] 80 mg/dL Normal 74-106 [facility] Comment on above: Performed By: #### C MP ####[facility] Dkdaqsuzlw789[address] [place], [place] [address]Dr. Selenaneil Tripathi Potassium [Moles/Vol] 3.5 mmol/L Normal 3.5-5.1 [facility] Comment on above: Performed By: #### C MP ####[facility] Pabcoymsjy520[address] [place], [place] [address]Dr. Airam Tripathi Protein [Mass/Vol] 6.1 g/dL Critically low 6.4-8.2 [facility] Comment on above: Performed By: #### C MP ####[facility] Grzqxxrnil5900[address] [place], [place] [address]DrKianna Tripathi Sodium [Moles/Vol] 136 mmol/L Normal 136-145 [facility] Comment on above: Performed By: #### C MP ####[facility] Mgqoekymse34[address] [place], [place] [address]DrKianna Tripathi Urea nitrogen [Mass/Vol] 31.0 mg/dL Critically high 7.0-18.0 [facility] Comment on above: Performed By: #### C MP ####[facility] Hhitxqyrcj035[address] [place], [place] [address]DrKianna Tripathi Urea nitrogen/Creatinine [Mass ratio] 27.9 mg/mg Normal [facility] Comment on above: Performed By: #### C MP ####[facility] Ufuhehuzwi080[address] [place], [place] [address]DrKianna Tripathi OSMOLALITYon 07-19-2022 Osmolality [Osmolality] 285 mosm/kg Normal 275-295 [facility] Comment on above: Performed By: #### O SMO ####[facility] Smznvprsbp776[address] [place], [place] [address]DrKianna Triapthi CBC AUTO DIFFon 07-15-2022 BASO # 0.0 103/ul Normal 0.0-0.1 [facility] Comment on above: Performed By: #### C BC ####[facility] Umceeltuqf2722[address] [place], [place] [address]DrKianna Tripathi Basophils/100 WBC (Bld) 0.2 % Normal 0.2-2.0 [facility] Comment on above: Performed By: #### C BC ####[facility] Wqovweficl815[address] [place], [place] [address]DrKianna Tripathi EO # 0.1 103/ul Normal 0.0-0.7 [facility] Comment on above: Performed By: #### C BC ####[facility] Xldyxfjeib549[address] [place], [place] [address]DrKianna Tripathi Eosinophils/100 WBC (Bld) 1.4 % Normal 0.9-7.0 [facility] Comment on above: Performed By: #### C BC ####[facility] Urmgqrikuq8340[address] [place], [place] [address]Dr. Airam Tripathi Erythrocyte distribution width (RBC) [Ratio] 13.0 % Normal 11.0-15.0 [facility] Comment on above: Performed By: #### C BC ####[facility] Mkijbihhvk0068[address] [place], [place] [address]Dr. Airam Tripathi Hematocrit (Bld) [Volume fraction] 29.3 % Critically low 36.0-48.0 [facility] Comment on above: Performed By: #### C BC ####[facility] Anqibpdcwn720[address] [place], [place] [address]Dr. Airam Tripathi Hemoglobin (Bld) [Mass/Vol] 10.3 g/dL Critically low 12.0-16.0 [facility] Comment on above: Performed By: #### C BC ####[facility] Hcmtzqpvmb2901[address] [place], [place] [address]Dr. Airam Tripathi IG # 0.05 10e3/ul Critically high 0.00-0.03 [facility] Comment on above: Performed By: #### C BC ####[facility] Qznuyacfwp4523[address] [place], [place] [address]Dr. Airam Tripathi IG % 0.6 % Critically high 0.0-0.5 [facility] Comment on above: Performed By: #### C BC ####[facility] Tgfbqyjbfr930[address] [place], [place] [address]Dr. Airam Tripathi LYMPH # 0.9 103/ul Critically low 1.2-3.8 [facility] Comment on above: Performed By: #### C BC ####[facility] Mfdjfmsyly926[address] [place], [place] [address]Dr. Airam Tripathi Lymphocytes/100 WBC (Bld) 10.6 % Critically low 20.5-60.0 [facility] Comment on above: Performed By: #### C BC ####[facility] Wuwdalwgvh5[address] [place] [address]Dr. Airam Deuce MANUAL DIFF REQ NO Normal [facility] Comment on above: Performed By: #### C BC ####[facility] Qtsaxypwyj8903 [place] [address]Dr. Airam Deuce MCH (RBC) [Entitic mass] 29.3 pg Normal 26.7-34.0 [facility] Comment on above: Performed By: #### C BC ####[facility] Nhpsvmbqyh039[address] [place], [place] [address]Dr. Airam Deuce MCHC (RBC) [Mass/Vol] 35.2 g/dL Normal 29.9-35.2 [facility] Comment on above: Performed By: #### C BC ####[facility] Lstdptmflv71999[address] [place], [place] [address]Dr. Selenaneil Tripathi MCV (RBC) [Entitic vol] 83.5 fL Normal 81.0-99.0 [facility] Comment on above: Performed By: #### C BC ####[facility] Kossjjtdji0915[address] [place], [place] [address]Dr. Selenaneil Tripathi MONO # 0.5 103/ul Normal 0.3-0.8 [facility] Comment on above: Performed By: #### C BC ####[facility] Kxutknrurg2520[address] [place], [place] [address]Dr. Airam Tripathi Monocytes/100 WBC (Bld) 5.1 % Normal 1.7-12.0 [facility] Comment on above: Performed By: #### C BC ####[facility] Xbiixdhema7864[address] [place], [place] [address]Dr. Airam Tripathi NEUT # 7.3 103/ul Critically high 1.4-6.5 [facility] Comment on above: Performed By: #### C BC ####[facility] Lrelonmgto516[address] [place], [place] [address]Dr. Airam Tripathi Neutrophils/100 WBC (Bld) 82.1 % Critically high 43.0-75.0 [facility] Comment on above: Performed By: #### C BC ####[facility] Ncymjvtzmk99[address] [place], [place] [id number]. Airam Deuce Platelet mean volume (Bld) [Entitic vol] 8.9 fL Critically low 9.5-13.5 [facility] Comment on above: Performed By: #### C BC ####[facility] Cbdmhzwlqm4262 [place] [address]Dr. Selenaneil Deuce PLT 290 103/ul Normal 150-450 [facility] Comment on above: Performed By: #### C BC ####[facility] Mppcbzaeia9299 [place] [address]Dr. Selenaneil Deuce RBC 3.51 106/ul Critically low 4.20-5.40 [facility] Comment on above: Performed By: #### C BC ####[facility] Evjodaryuc5320 [place] [address]Dr. Selenaneil Deuce WBC 8.9 103/ul Normal 4.0-11.0 [facility] Comment on above: Performed By: #### C BC ####[facility] Szhdtqzmdn1096 [place] [address]Dr. Airam Tripathi PROF 14(COMP METB)on 023 Albumin [Mass/Vol] 3.2 g/dL Critically low 3.4-5.0 [facility] Comment on above: Performed By: #### C MP ####[facility] Hjszpijqfn8933 [place] [address]Dr. Airam Tripathi Albumin/Globulin [Mass ratio] 0.9 {ratio} Normal [facility] Comment on above: Performed By: #### C MP ####[facility] Jhweksxcbr1805 [place] [address]Dr. Airam Tripathi ALP [Catalytic activity/Vol] 194 U/L Critically high 46-116 [facility] Comment on above: Performed By: #### C MP ####[facility] Wczzpekpzj1421 [place] [address]Dr. Airam Tripathi ALT [Catalytic activity/Vol] 19 U/L Normal 14-59 [facility] Comment on above: Performed By: #### C MP ####[facility] Rjzptrpupv2528 [place] [address]Dr. Airam Tripathi Anion gap [Moles/Vol] 11.3 mmol/L Normal [facility] Comment on above: Performed By: #### C MP ####[facility] Zbwwtdrcwj2048 [place] [address]Dr. Airam Tripathi AST [Catalytic activity/Vol] 24 U/L Normal 15-37 [facility] Comment on above: Performed By: #### C MP ####[facility] Ytorquvvux049[address] [place], [place] [address]Dr. Airam Deuce Bilirubin [Mass/Vol] 0.2 mg/dL Normal 0.2-1.0 [facility] Comment on above: Performed By: #### C MP ####[facility] Wdnqchwoic05[address] [place], [place] [address]Dr. Airam Tripathi Calcium [Mass/Vol] 8.7 mg/dL Normal 8.5-10.1 [facility] Comment on above: Performed By: #### C MP ####[facility] Vunbxqlqny966[address] [place], [place] [address]Dr. Airam Tripathi Chloride [Moles/Vol] 101 mmol/L Normal 98-107 [facility] Comment on above: Performed By: #### C MP ####[facility] Xcassuocil538[address] [place], [place] [address]Dr. Airam Tripathi CO2 [Moles/Vol] 27.2 mmol/L Normal 21.0-32.0 [facility] Comment on above: Performed By: #### C MP ####[facility] Leyzepqcxg57[address] [place], [place] [address]Dr. Airam Tripathi Creatinine [Mass/Vol] 1.17 mg/dL Critically high 0.55-1.02 [facility] Comment on above: Performed By: #### C MP ####[facility] Atywsifzlu080[address] [place], [place] [address]Dr. Selenaneil Deuce EGFR-AF ARGENTINE 57 mL/min/1.73m2 Critically low >=60 [facility] Comment on above: Performed By: #### C MP ####[facility] Jfdeydvwig96[address] [place], [place] [address]Dr. Airam Tripathi EGFR-NON AF ARGENTINE 47 mL/min/1.73m2 Critically low >=60 [facility] Comment on above: Performed By: #### C MP ####[facility] Tjadtwjzcg6202 [place] [address]Dr. Airam Tripathi Globulin (S) [Mass/Vol] 3.5 g/dL Normal [facility] Comment on above: Performed By: #### C MP ####[facility] Pvjfrkwaeg[address] [place], [place] [address]Dr. Airam Tripathi Glucose [Mass/Vol] 86 mg/dL Normal 74-106 [facility] Comment on above: Performed By: #### C MP ####[facility] Knnbhqzdqd[address] [place], [place] [address]Dr. Airam Tripathi Potassium [Moles/Vol] 5.5 mmol/L Critically high 3.5-5.1 [facility] Comment on above: Performed By: #### C MP ####[facility] Ntpxwnslij47[address] [place], [place] [address]Dr. Airam Tripathi Protein [Mass/Vol] 6.7 g/dL Normal 6.4-8.2 [facility] Comment on above: Performed By: #### C MP ####[facility] Lvnnsggwyd06[address] [place], [place] [address]Dr. Airam Tripathi Sodium [Moles/Vol] 134 mmol/L Critically low 136-145 [facility] Comment on above: Performed By: #### C MP ####[facility] Tuqbdhwlem[address] [place], [place] [address]Dr. Airam Tripathi Urea nitrogen [Mass/Vol] 26.0 mg/dL Critically high 7.0-18.0 [facility] Comment on above: Performed By: #### C MP ####[facility] Bzbrgzlupc[address] [place], [place] [address]Dr. Airam Tripathi Urea nitrogen/Creatinine [Mass ratio] 22.2 mg/mg Normal [facility] Comment on above: Performed By: #### C MP ####[facility] Ubhbztihhe99[address] [place], [place] [address]Dr. Airam Tripathi OSMOLALITYon 07-08-2022 Osmolality [Osmolality] 273 mosm/kg Critically low 275-295 [facility] Comment on above: Performed By: #### O SMO ####[facility] Bmoluhbwlv[address] [place] [address]Dr. Airam Tripathi CBC AUTO DIFFon 07-07-2022 BASO # 0.0 103/ul Normal 0.0-0.1 [facility] Comment on above: Performed By: #### C BC ####[facility] Moudawsiqd4430 [place] [address]Dr. Airam Tripathi Basophils/100 WBC (Bld) 0.4 % Normal 0.2-2.0 [facility] Comment on above: Performed By: #### C BC ####[facility] Nfliqbzijs[address] [place], [place] [address]Dr. Airam Tripathi EO # 0.1 103/ul Normal 0.0-0.7 [facility] Comment on above: Performed By: #### C BC ####[facility] Oqfuzvmuda[address] [place], [place] [address]Dr. Airam Tripathi Eosinophils/100 WBC (Bld) 1.6 % Normal 0.9-7.0 [facility] Comment on above: Performed By: #### C BC ####[facility] Jrfzbeevmg747[address] [place], [place] [address]Dr. Airam Tripathi Erythrocyte distribution width (RBC) [Ratio] 13.1 % Normal 11.0-15.0 [facility] Comment on above: Performed By: #### C BC ####[facility] Xgzwevapcj283[address] [place], [place] [address]Dr. Airam Tripathi Hematocrit (Bld) [Volume fraction] 33.7 % Critically low 36.0-48.0 [facility] Comment on above: Performed By: #### C BC ####[facility] Kzgcunainp96[address] [place], [place] [address]Dr. Airam Tripathi Hemoglobin (Bld) [Mass/Vol] 9.9 g/dL Critically low 12.0-16.0 [facility] Comment on above: Performed By: #### C BC ####[facility] Tclrfpjvhs0[address] [place] [id number]. Airam Tripathi IG # 0.05 10e3/ul Critically high 0.00-0.03 [facility] Comment on above: Performed By: #### C BC ####[facility] Yqvmfonbef5676 [place] [id number]. Airam Tripathi IG % 0.6 % Critically high 0.0-0.5 [facility] Comment on above: Performed By: #### C BC ####[facility] Vnapzbekyn101[address] [place] [address]Dr. Airam Tripathi LYMPH # 1.2 103/ul Normal 1.2-3.8 [facility] Comment on above: Performed By: #### C BC ####[facility] Mgiobpdqpa7125 [place] [address]Dr. Airam Tripathi Lymphocytes/100 WBC (Bld) 15.5 % Critically low 20.5-60.0 [facility] Comment on above: Performed By: #### C BC ####[facility] Xnlihftyag1102 [place] [address]Dr. Selenaneil Tripathi MANUAL DIFF REQ NO Normal [facility] Comment on above: Performed By: #### C BC ####[facility] Eporbafjjq7714 [place] [address]Dr. Airam Tripathi MCH (RBC) [Entitic mass] 28.7 pg Normal 26.7-34.0 [facility] Comment on above: Performed By: #### C BC ####[facility] Ixqnhocepi6348 [place] [address]Dr. Airam Tripathi MCHC (RBC) [Mass/Vol] 29.4 g/dL Critically low 29.9-35.2 [facility] Comment on above: Performed By: #### C BC ####[facility] Tpzeovgbdi7705 [place] [address]Dr. Airam Tripathi MCV (RBC) [Entitic vol] 97.7 fL Normal 81.0-99.0 [facility] Comment on above: Performed By: #### C BC ####[facility] Wmxszhjhkl9072 [place] [phone]. Airam Tripathi MONO # 0.6 103/ul Normal 0.3-0.8 [facility] Comment on above: Performed By: #### C BC ####[facility] Jueedputih9335 [place] [phone]. Airam Tripathi Monocytes/100 WBC (Bld) 7.7 % Normal 1.7-12.0 [facility] Comment on above: Performed By: #### C BC ####[facility] Oerxuzqzim6393 [place] [phone]. Airam Tripathi NEUT # 5.9 103/ul Normal 1.4-6.5 [facility] Comment on above: Performed By: #### C BC ####[facility] Rrfcejkmsc8301 [place] [phone]. Airam Tripathi Neutrophils/100 WBC (Bld) 74.2 % Normal 43.0-75.0 [facility] Comment on above: Performed By: #### C BC ####[facility] Aerizqbgza4368 [place] [phone]. Airam Tripathi Platelet mean volume (Bld) [Entitic vol] 9.4 fL Critically low 9.5-13.5 [facility] Comment on above: Performed By: #### C BC ####[facility] Ilhorwewuq5798 [place] [phone]. Airam Tripathi PLT 331 103/ul Normal 150-450 [facility] Comment on above: Performed By: #### C BC ####[facility] Vubmpgnhtp7105 [place] [phone]. Airam Tripathi RBC 3.45 106/ul Critically low 4.20-5.40 [facility] Comment on above: Performed By: #### C BC ####[facility] Jqgfellttb6909 [place] [phone]. Airam Tripathi WBC 7.9 103/ul Normal 4.0-11.0 [facility] Comment on above: Performed By: #### C BC ####[facility] Zaviskptcq9551 [place] [address]Dr. Airam Tripathi PROF 14(COMP METB)on 023 Albumin [Mass/Vol] 3.4 g/dL Normal 3.4-5.0 [facility] Comment on above: Performed By: #### C MP ####[facility] Oadvqowkml0705 [place] [address]Dr. Airam Tripathi Albumin/Globulin [Mass ratio] 1.1 {ratio} Normal [facility] Comment on above: Performed By: #### C MP ####[facility] Fbxinldewr[address] [place], [place] [address]Dr. Airam Tripathi ALP [Catalytic activity/Vol] 197 U/L Critically high 46-116 [facility] Comment on above: Performed By: #### C MP ####[facility] Fubwwyrbuu605[address] [place], [place] [address]Dr. Airam Tripathi ALT [Catalytic activity/Vol] 18 U/L Normal 14-59 [facility] Comment on above: Performed By: #### C MP ####[facility] Rofbdcxiym2867[address] [place], [place] [address]Dr. Airam Tripathi Anion gap [Moles/Vol] 12.3 mmol/L Normal [facility] Comment on above: Performed By: #### C MP ####[facility] Rknchzfwee440[address] [place], [place] [address]Dr. Airam Tripathi AST [Catalytic activity/Vol] 26 U/L Normal 15-37 [facility] Comment on above: Performed By: #### C MP ####[facility] Xyqfdmcmdr12[address] [place], [place] [address]Dr. Airam Tripathi Bilirubin [Mass/Vol] 0.3 mg/dL Normal 0.2-1.0 [facility] Comment on above: Performed By: #### C MP ####[facility] Swyikgplsq764[address] [place], [place] [address]Dr. Airam Tripathi Calcium [Mass/Vol] 8.6 mg/dL Normal 8.5-10.1 [facility] Comment on above: Performed By: #### C MP ####[facility] Qqstahlceg2086 [place] [phone]. Airam Tripathi Chloride [Moles/Vol] 96 mmol/L Critically low 98-107 [facility] Comment on above: Performed By: #### C MP ####[facility] Ugztfiispp7336 [place] [address]Dr. Airam Tripathi CO2 [Moles/Vol] 27.8 mmol/L Normal 21.0-32.0 [facility] Comment on above: Performed By: #### C MP ####[facility] Znhlulcswn025[address] [place], [place] [address]Dr. Airam Tripathi Creatinine [Mass/Vol] 1.55 mg/dL Critically high 0.55-1.02 [facility] Comment on above: Performed By: #### C MP ####[facility] Skzptvwxdf215[address] [place], [place] [address]Dr. Airam Tripathi EGFR-AF ARGENTINE 41 mL/min/1.73m2 Critically low >=60 [facility] Comment on above: Performed By: #### C MP ####[facility] Ukvzcazpnz715[address] [place], [place] [address]Dr. Airam Tripathi EGFR-NON AF ARGENTINE 34 mL/min/1.73m2 Critically low >=60 [facility] Comment on above: Performed By: #### C MP ####[facility] Uavdmptuss397[address] [place], [place] [address]Dr. Airam Tripathi Globulin (S) [Mass/Vol] 3.2 g/dL Normal [facility] Comment on above: Performed By: #### C MP ####[facility] Yqzuhixomw359[address] [place], [place] [address]Dr. Airam Tripathi Glucose [Mass/Vol] 87 mg/dL Normal 74-106 [facility] Comment on above: Performed By: #### C MP ####[facility] Hcgkwxhysw894[address] [place], [place] [address]Dr. Airam Tripathi Potassium [Moles/Vol] 5.1 mmol/L Normal 3.5-5.1 [facility] Comment on above: Performed By: #### C MP ####[facility] Vobbgomskw4651 [place] [address]Dr. Airam Tripathi Protein [Mass/Vol] 6.6 g/dL Normal 6.4-8.2 [facility] Comment on above: Performed By: #### C MP ####[facility] Nqwyjudsru2841 [place] [address]Dr. Airam Tripathi Sodium [Moles/Vol] 131 mmol/L Critically low 136-145 [facility] Comment on above: Performed By: #### C MP ####[facility] Kugwjtibjt07[address] [place], [place] [address]Dr. Airam Tripathi Urea nitrogen [Mass/Vol] 31.0 mg/dL Critically high 7.0-18.0 [facility] Comment on above: Performed By: #### C MP ####[facility] Oueofuputl1736[address] [place], [place] [address]Dr. Airam Deuce Urea nitrogen/Creatinine [Mass ratio] 20.0 mg/mg Normal [facility] Comment on above: Performed By: #### C MP ####[facility] Zmeuldrmwn[address] [place], [place] [address]Dr. Airam Tripathi OSMOLALITYon 07-02-2022 Osmolality [Osmolality] 281 mosm/kg Normal 275-295 [facility] Comment on above: Performed By: #### O SMO ####[facility] Pvuyhiwygj602[address] [place], [place] [address]Dr. Airam Deuce CBC AUTO DIFFon 06-29-2022 BASO # 0.0 103/ul Normal 0.0-0.1 [facility] Comment on above: Performed By: #### C BC ####[facility] Zwlgokaucq[address] [place], [place] [address]Dr. Airam Deuce Basophils/100 WBC (Bld) 0.3 % Normal 0.2-2.0 [facility] Comment on above: Performed By: #### C BC ####[facility] Zureiaxsxg2317[address] [place], [place] [address]Dr. Selenaneil Tripathi EO # 0.2 103/ul Normal 0.0-0.7 [facility] Comment on above: Performed By: #### C BC ####[facility] Lybzfbdgwj3704 [place] [phone]. Airam Tripathi Eosinophils/100 WBC (Bld) 2.3 % Normal 0.9-7.0 [facility] Comment on above: Performed By: #### C BC ####[facility] Ipvbhntrwj4430 [place] [address]Dr. Airam Tripathi Erythrocyte distribution width (RBC) [Ratio] 13.2 % Normal 11.0-15.0 [facility] Comment on above: Performed By: #### C BC ####[facility] Dueukxefct46[address] [place], [place] [address]Dr. Airam Tripathi Hematocrit (Bld) [Volume fraction] 28.2 % Critically low 36.0-48.0 [facility] Comment on above: Performed By: #### C BC ####[facility] Fzmjxajfeg120[address] [place], [place] [address]Dr. Airam Tripathi Hemoglobin (Bld) [Mass/Vol] 9.1 g/dL Critically low 12.0-16.0 [facility] Comment on above: Performed By: #### C BC ####[facility] Zrrpjoicnt95[address] [place], [place] [address]Dr. Airam Tripathi IG # 0.03 10e3/ul Normal 0.00-0.03 [facility] Comment on above: Performed By: #### C BC ####[facility] Eqhwtcgrel0532 [place] [address]Dr. Airam Tripathi IG % 0.4 % Normal 0.0-0.5 [facility] Comment on above: Performed By: #### C BC ####[facility] Yzajosepuu[address] [place], [place] [address]Dr. Airam Tripathi LYMPH # 1.0 103/ul Critically low 1.2-3.8 [facility] Comment on above: Performed By: #### C BC ####[facility] Yhhvibzltm16[address] [place], [place] [address]Dr. Airam Tripathi Lymphocytes/100 WBC (Bld) 12.8 % Critically low 20.5-60.0 [facility] Comment on above: Performed By: #### C BC ####[facility] Kwifmqpgmv6812 [place] [address]Dr. Airam Tripathi MANUAL DIFF REQ NO Normal [facility] Comment on above: Performed By: #### C BC ####[facility] Hpkfaprjvu2841 [place] [id number]. Airam Tripathi MCH (RBC) [Entitic mass] 29.9 pg Normal 26.7-34.0 [facility] Comment on above: Performed By: #### C BC ####[facility] Xnjkxpqwjt[address] [place], [place] [address]Dr. Airam Tripathi MCHC (RBC) [Mass/Vol] 32.3 g/dL Normal 29.9-35.2 [facility] Comment on above: Performed By: #### C BC ####[facility] Fqblfpevoi[address] [place], [place] [address]Dr. Airam Tripathi MCV (RBC) [Entitic vol] 92.8 fL Normal 81.0-99.0 [facility] Comment on above: Performed By: #### C BC ####[facility] Owpufhouwz[address] [place], [place] [address]Dr. Airam Tripathi MONO # 0.5 103/ul Normal 0.3-0.8 [facility] Comment on above: Performed By: #### C BC ####[facility] Ffnsymtuao[address] [place], [place] [address]Dr. Selenaneil Tripathi Monocytes/100 WBC (Bld) 6.0 % Normal 1.7-12.0 [facility] Comment on above: Performed By: #### C BC ####[facility] Isfxbbfehw149[address] [place], [place] [address]Dr. Airam Tripathi NEUT # 6.0 103/ul Normal 1.4-6.5 [facility] Comment on above: Performed By: #### C BC ####[facility] Czizvvbszu[address] [place], [place] [address]Dr. Airam Tripathi Neutrophils/100 WBC (Bld) 78.2 % Critically high 43.0-75.0 [facility] Comment on above: Performed By: #### C BC ####[facility] Suwlmojcbu1364 [place] [phone]. Airam Tripathi Platelet mean volume (Bld) [Entitic vol] 9.0 fL Critically low 9.5-13.5 [facility] Comment on above: Performed By: #### C BC ####[facility] Todfeqkxyf5183 [place] [id number]. Airam Tripathi PLT 332 103/ul Normal 150-450 [facility] Comment on above: Performed By: #### C BC ####[facility] Otuwxbczvh7435 [place] [address]Dr. Airam Tripathi RBC 3.04 106/ul Critically low 4.20-5.40 [facility] Comment on above: Performed By: #### C BC ####[facility] Vbjjjxjrhz7715 [place] [address]Dr. Airam Tripathi WBC 7.7 103/ul Normal 4.0-11.0 [facility] Comment on above: Performed By: #### C BC ####[facility] Tmnegoyqeh4152 [place] [address]Dr. Airam Tripathi PROF 14(COMP METB)on 023 Albumin [Mass/Vol] 3.2 g/dL Critically low 3.4-5.0 [facility] Comment on above: Performed By: #### C MP ####[facility] Njgifmypgb8091 [place] [address]Dr. Airam Tripathi Albumin/Globulin [Mass ratio] 0.9 {ratio} Normal [facility] Comment on above: Performed By: #### C MP ####[facility] Dlhvhmwmei5985 [place] [address]Dr. Airam Tripathi ALP [Catalytic activity/Vol] 135 U/L Critically high 46-116 [facility] Comment on above: Performed By: #### C MP ####[facility] Jgycvmsxqd3683 [place] [address]Dr. Airam Tripathi ALT [Catalytic activity/Vol] 25 U/L Normal 14-59 [facility] Comment on above: Performed By: #### C MP ####[facility] Vsbsmbpzed9583 [place] [id number]. Airam Tripathi Anion gap [Moles/Vol] 9.1 mmol/L Normal [facility] Comment on above: Performed By: #### C MP ####[facility] Foggdkfnai1869 [place] [phone]. Airam Tripathi AST [Catalytic activity/Vol] 34 U/L Normal 15-37 [facility] Comment on above: Performed By: #### C MP ####[facility] Hqvwddgxth6959 [place] [id number]. Airam Tripathi Bilirubin [Mass/Vol] 0.3 mg/dL Normal 0.2-1.0 [facility] Comment on above: Performed By: #### C MP ####[facility] Szmenjwdua1134 [place] [address]Dr. Airam Tripathi Calcium [Mass/Vol] 8.6 mg/dL Normal 8.5-10.1 [facility] Comment on above: Performed By: #### C MP ####[facility] Ohxldiiglc[address] [place], [place] [address]Dr. Airam Tripathi Chloride [Moles/Vol] 99 mmol/L Normal 98-107 [facility] Comment on above: Performed By: #### C MP ####[facility] Jfymhyjztn8374 [place] [id number]. Airam Tripathi CO2 [Moles/Vol] 29.1 mmol/L Normal 21.0-32.0 [facility] Comment on above: Performed By: #### C MP ####[facility] Yswuxnuath1523 [place] [id number]. Airam Tripathi Creatinine [Mass/Vol] 1.40 mg/dL Critically high 0.55-1.02 [facility] Comment on above: Performed By: #### C MP ####[facility] Wysrqpidnm3624 [place] [address]Dr. Airam Tripathi EGFR-AF ARGENTINE 46 mL/min/1.73m2 Critically low >=60 [facility] Comment on above: Performed By: #### C MP ####[facility] Wiraawfprc2590 [place] [id number]. Airam Tripathi EGFR-NON AF ARGENTINE 38 mL/min/1.73m2 Critically low >=60 [facility] Comment on above: Performed By: #### C MP ####[facility] Ycuxwghmib7872 [place] [phone]. Airam Tripathi Globulin (S) [Mass/Vol] 3.4 g/dL Normal [facility] Comment on above: Performed By: #### C MP ####[facility] Ektxrohlhz0801 [place] [id number]. Airam Tripathi Glucose [Mass/Vol] 83 mg/dL Normal 74-106 [facility] Comment on above: Performed By: #### C MP ####[facility] Cplxgxsntq1597 [place] [id number]. Airam Tripathi Potassium [Moles/Vol] 4.2 mmol/L Normal 3.5-5.1 [facility] Comment on above: Performed By: #### C MP ####[facility] Phtwipwtym2514 [place] [id number]. Airam Tripathi Protein [Mass/Vol] 6.6 g/dL Normal 6.4-8.2 [facility] Comment on above: Performed By: #### C MP ####[facility] Lafmzpvfqd8376 [place] [id number]. Airam Tripathi Sodium [Moles/Vol] 133 mmol/L Critically low 136-145 [facility] Comment on above: Performed By: #### C MP ####[facility] Ibtqwalahq8190 [place] [id number]. Airam Tripathi Urea nitrogen [Mass/Vol] 37.0 mg/dL Critically high 7.0-18.0 [facility] Comment on above: Performed By: #### C MP ####[facility] Anymrzsumd4053 [place] [phone]. Airam Tripathi Urea nitrogen/Creatinine [Mass ratio] 26.4 mg/mg Normal [facility] Comment on above: Performed By: #### C MP ####[facility] Ormntutjus0795 [place] [address]Dr. Airam Tripathi BNPon 06-18-2022 Natriuretic peptide B (Bld) [Mass/Vol] 5826.0 pg/mL Critically high <=900.0 [facility] Comment on above: Performed By: #### B PLATE GLASS INSTALLER HELPER, CMP ####[facility] Bfzvywtwlh[address] [place], [place] [address]Dr. Airam Tripathi CBC AUTO DIFFon 06-18-2022 BASO # 0.0 103/ul Normal 0.0-0.1 [facility] Comment on above: Performed By: #### C BC ####[facility] Nahtuhxykp01[address] [place], [place] [address]Dr. Airam Tripathi Basophils/100 WBC (Bld) 0.4 % Normal 0.2-2.0 [facility] Comment on above: Performed By: #### C BC ####[facility] Vxivqxemnd[address] [place], [place] [address]Dr. Airam Tripathi EO # 0.1 103/ul Normal 0.0-0.7 [facility] Comment on above: Performed By: #### C BC ####[facility] Dhpolqhefb16[address] [place], [place] [address]Dr. Airam Tripathi Eosinophils/100 WBC (Bld) 1.3 % Normal 0.9-7.0 [facility] Comment on above: Performed By: #### C BC ####[facility] Owpmobvvgq230[address] [place], [place] [address]Dr. Airam Tripathi Erythrocyte distribution width (RBC) [Ratio] 13.4 % Normal 11.0-15.0 [facility] Comment on above: Performed By: #### C BC ####[facility] Rjfbfckusq[address] [place], [place] [address]Dr. Airam Tripathi Hematocrit (Bld) [Volume fraction] 27.3 % Critically low 36.0-48.0 [facility] Comment on above: Performed By: #### C BC ####[facility] Kvemzriubd77[address] [place], [place] [address]Dr. Airam Tripathi Hemoglobin (Bld) [Mass/Vol] 8.6 g/dL Critically low 12.0-16.0 [facility] Comment on above: Performed By: #### C BC ####[facility] Qehqaikiqk9232 [place] [address]DrKianna Tripathi IG # 0.08 10e3/ul Critically high 0.00-0.03 [facility] Comment on above: Performed By: #### C BC ####[facility] Bxnnmxqscm1818 [place] [address]DrKianna Tripathi IG % 0.8 % Critically high 0.0-0.5 [facility] Comment on above: Performed By: #### C BC ####[facility] Rmrxnsnjbp6732 [place] [address]DrKianna Tripathi LYMPH # 1.9 103/ul Normal 1.2-3.8 [facility] Comment on above: Performed By: #### C BC ####[facility] Twldzevnir4500 [place] [address]DrKianna Tripathi Lymphocytes/100 WBC (Bld) 19.3 % Critically low 20.5-60.0 [facility] Comment on above: Performed By: #### C BC ####[facility] Gcccjqtlro4399 [place] [address]DrKianna Tripathi MANUAL DIFF REQ NO Normal [facility] Comment on above: Performed By: #### C BC ####[facility] Fgrucauidf5040 [place] [address]DrKianna Tripathi MCH (RBC) [Entitic mass] 29.6 pg Normal 26.7-34.0 [facility] Comment on above: Performed By: #### C BC ####[facility] Frsithoueg1686 [place] [phone] Tripathi MCHC (RBC) [Mass/Vol] 31.5 g/dL Normal 29.9-35.2 [facility] Comment on above: Performed By: #### C BC ####[facility] Ciskuyoxxw3712 [place] [phone] Tripathi MCV (RBC) [Entitic vol] 93.8 fL Normal 81.0-99.0 [facility] Comment on above: Performed By: #### C BC ####[facility] Knujtyzrug6917 [place] [id number]. Airam Tripathi MONO # 0.6 103/ul Normal 0.3-0.8 [facility] Comment on above: Performed By: #### C BC ####[facility] Fbddsemlqv3968 [place] [id number]. Airam Tripathi Monocytes/100 WBC (Bld) 6.5 % Normal 1.7-12.0 [facility] Comment on above: Performed By: #### C BC ####[facility] Upbhbcyxmx5876 [place] [address]Dr. Airam Tripathi NEUT # 6.9 103/ul Critically high 1.4-6.5 [facility] Comment on above: Performed By: #### C BC ####[facility] Izgsrobeau1828 [place] [address]Dr. Airam Tripathi Neutrophils/100 WBC (Bld) 71.7 % Normal 43.0-75.0 [facility] Comment on above: Performed By: #### C BC ####[facility] Cufkccmuny3614 [place] [address]Dr. Airam Tripathi Platelet mean volume (Bld) [Entitic vol] 8.5 fL Critically low 9.5-13.5 [facility] Comment on above: Performed By: #### C BC ####[facility] Qucejwremf4216 [place] [phone]. Airam Tripathi PLT 295 103/ul Normal 150-450 [facility] Comment on above: Performed By: #### C BC ####[facility] Vzfsnixplx7969 [place] [phone]. Airam Tripathi RBC 2.91 106/ul Critically low 4.20-5.40 [facility] Comment on above: Performed By: #### C BC ####[facility] Eywzucdcrh8423 [place] [phone]. Airam Tripathi WBC 9.7 103/ul Normal 4.0-11.0 [facility] Comment on above: Performed By: #### C BC ####[facility] Cnatqlppdq7044 [place] [address]Dr. Airam Tripathi PROF 14(COMP METB)on 06-18- 022 Albumin [Mass/Vol] 2.8 g/dL Critically low 3.4-5.0 [facility] Comment on above: Performed By: #### B PL[employer] INSTALLER HELPER, CMP ####[facility] Ubrpjhpccn0594 [place] [address]Dr. Airam Tripathi Albumin/Globulin [Mass ratio] 0.9 {ratio} Normal [facility] Comment on above: Performed By: #### B PLATE GLASS INSTALLER HELPER, CMP ####[facility] Lyicuxxfbw327[address] [place], [place] [address]Dr. Airam Tripathi ALP [Catalytic activity/Vol] 125 U/L Critically high 46-116 [facility] Comment on above: Performed By: #### B PLATE GLASS INSTALLER HELPER, CMP ####[facility] Clfamuvtzv627[address] [place], [place] [address]Dr. Airam Tripathi ALT [Catalytic activity/Vol] 16 U/L Normal 14-59 [facility] Comment on above: Performed By: #### B PLATE GLASS INSTALLER HELPER, CMP ####[facility] Jxzvfzbccg2520[address] [place], [place] [address]Dr. Airam Tripathi Anion gap [Moles/Vol] 11.4 mmol/L Normal [facility] Comment on above: Performed By: #### B PLATE GLASS INSTALLER HELPER, CMP ####[facility] Xyfsvrtbgp[address] [place], [place] [address]Dr. Airam Tripathi AST [Catalytic activity/Vol] 23 U/L Normal 15-37 [facility] Comment on above: Performed By: #### B PLATE GLASS INSTALLER HELPER, CMP ####[facility] Nmeuumngeb0175[address] [place], [place] [address]Dr. Airam Tripathi Bilirubin [Mass/Vol] 0.2 mg/dL Normal 0.2-1.0 [facility] Comment on above: Performed By: #### B PLATE GLASS INSTALLER HELPER, CMP ####[facility] Wkvuzzlwln1985[address] [place], [place] [address]Dr. Airam Tripathi Calcium [Mass/Vol] 8.1 mg/dL Critically low 8.5-10.1 [facility] Comment on above: Performed By: #### B PLATE GLASS INSTALLER HELPER, CMP ####[facility] Mdaikqeoqa40[address] [place], [place] [address]Dr. Airam Tripathi Chloride [Moles/Vol] 96 mmol/L Critically low 98-107 [facility] Comment on above: Performed By: #### B PLATE GLASS INSTALLER HELPER, CMP ####[facility] Feyyddwore[address] [place], [place] [address]Dr. Airam Deuce CO2 [Moles/Vol] 26.6 mmol/L Normal 21.0-32.0 [facility] Comment on above: Performed By: #### B PLATE GLASS INSTALLER HELPER, CMP ####[facility] Guwlhdhliu5[address] [place], [place] [address]Dr. Airam Tripathi Creatinine [Mass/Vol] 1.31 mg/dL Critically high 0.55-1.02 [facility] Comment on above: Performed By: #### B PLATE GLASS INSTALLER HELPER, CMP ####[facility] Ccdyfgiwmy149[address] [place], [place] [address]Dr. Selenaneil Deuce EGFR-AF ARGENTINE 50 mL/min/1.73m2 Critically low >=60 [facility] Comment on above: Performed By: #### B PLATE GLASS INSTALLER HELPER, CMP ####[facility] Hvtvytvgxl504[address] [place], [place] [address]Dr. Selenaneil Duece EGFR-NON AF ARGENTINE 41 mL/min/1.73m2 Critically low >=60 [facility] Comment on above: Performed By: #### B PLATE GLASS INSTALLER HELPER, CMP ####[facility] Bmkjlsvvhf1413[address] [place], [place] [address]Dr. Airam Tripathi Globulin (S) [Mass/Vol] 3.0 g/dL Normal [facility] Comment on above: Performed By: #### B PLATE GLASS INSTALLER HELPER, CMP ####[facility] Dqafbslfbb7935[address] [place], [place] [address]Dr. Airam Tripathi Glucose [Mass/Vol] 82 mg/dL Normal 74-106 [facility] Comment on above: Performed By: #### B PLATE GLASS INSTALLER HELPER, CMP ####[facility] Ejpukxjbxl9[address] [place], [place] [address]Dr. Airam Tripathi Potassium [Moles/Vol] 4.0 mmol/L Normal 3.5-5.1 [facility] Comment on above: Performed By: #### B PLATE GLASS INSTALLER HELPER, CMP ####[facility] [address]lxm[address] [place] [address]Dr. Airam Tripathi Protein [Mass/Vol] 5.8 g/dL Critically low 6.4-8.2 [facility] Comment on above: Performed By: #### B PLATE GLASS INSTALLER HELPER, CMP ####[facility] Ojnscseghd873[address] [place], [place] [address]Dr. Selenaneil Tripathi Sodium [Moles/Vol] 130 mmol/L Critically low 136-145 [facility] Comment on above: Performed By: #### B PLATE GLASS INSTALLER HELPER, CMP ####[facility] Rftzwoqxdk8030[address] [place], [place] [address]Dr. Airam Tripathi Urea nitrogen [Mass/Vol] 19.0 mg/dL Critically high 7.0-18.0 [facility] Comment on above: Performed By: #### B PLATE GLASS INSTALLER HELPER, CMP ####[facility] Cyirawqwct3364[address] [place], [place] [address]Dr. Airam Tripathi Urea nitrogen/Creatinine [Mass ratio] 14.5 mg/mg Normal [facility] Comment on above: Performed By: #### B PLATE GLASS INSTALLER HELPER, CMP ####[facility] Hsrfnwjgmg330[address] [place], [place] [address]Dr. Selenaneil Deuce BNPon 06-17-2022 Natriuretic peptide B (Bld) [Mass/Vol] 2510.0 pg/mL Critically high <=900.0 [facility] Comment on above: Performed By: #### B PLATE GLASS INSTALLER HELPER, CMP ####[facility] Ncdpzurxoi[address] [place], [place] [address]Dr. Selenaneil Deuce CBC AUTO DIFFon 06-17-2022 BASO # 0.0 103/ul Normal 0.0-0.1 [facility] Comment on above: Performed By: #### C BC ####[facility] Ugwoklhjqt5637[address] [place], [place] [address]Dr. Airam Tripathi Basophils/100 WBC (Bld) 0.4 % Normal 0.2-2.0 [facility] Comment on above: Performed By: #### C BC ####[facility] Noosozuejf1970[address] [place], [place] [address]DrKianna Tripathi EO # 0.0 103/ul Normal 0.0-0.7 [facility] Comment on above: Performed By: #### C BC ####[facility] Lxzpvnhhzt550[address] [place], [place] [address]DrKianna Tripathi Eosinophils/100 WBC (Bld) 0.3 % Critically low 0.9-7.0 [facility] Comment on above: Performed By: #### C BC ####[facility] Obnkxmtqau336[address] [place], [place] [address]Dr. Airam Tripathi Erythrocyte distribution width (RBC) [Ratio] 13.6 % Normal 11.0-15.0 [facility] Comment on above: Performed By: #### C BC ####[facility] Yrydmnpwva9827[address] [place], [place] [address]DrKianna Tripathi Hematocrit (Bld) [Volume fraction] 28.9 % Critically low 36.0-48.0 [facility] Comment on above: Performed By: #### C BC ####[facility] Usqucjiozh3428[address] [place], [place] [address]DrKianna Tripathi Hemoglobin (Bld) [Mass/Vol] 8.9 g/dL Critically low 12.0-16.0 [facility] Comment on above: Performed By: #### C BC ####[facility] Czyhiuonqz68[address] [place], [place] [address]DrKianna Tripathi IG # 0.10 10e3/ul Critically high 0.00-0.03 [facility] Comment on above: Performed By: #### C BC ####[facility] Auvpssogil4047[address] [place], [place] [address]DrKianna Tripathi IG % 1.3 % Critically high 0.0-0.5 [facility] Comment on above: Performed By: #### C BC ####[facility] Twdabfpmac187[address] [place], [place] [address]DrKianna Tripathi LYMPH # 0.7 103/ul Critically low 1.2-3.8 [facility] Comment on above: Performed By: #### C BC ####[facility] [address]gdpo18[address] [place] [address]Dr. Airam Tripathi Lymphocytes/100 WBC (Bld) 8.1 % Critically low 20.5-60.0 [facility] Comment on above: Performed By: #### C BC ####[facility] Xrjxveyvzq8[address] [place], [place] [address]Dr. Airam Tripathi MANUAL DIFF REQ NO Normal [facility] Comment on above: Performed By: #### C BC ####[facility] Vydskcbucw316[address] [place], [place] [address]Dr. Airam Tripathi MCH (RBC) [Entitic mass] 29.4 pg Normal 26.7-34.0 [facility] Comment on above: Performed By: #### C BC ####[facility] Bgapwwywoa3632[address] [place], [place] [address]Dr. Airam Tripathi MCHC (RBC) [Mass/Vol] 30.8 g/dL Normal 29.9-35.2 [facility] Comment on above: Performed By: #### C BC ####[facility] Gzjxmmncso854[address] [place], [place] [address]Dr. Airam Tripathi MCV (RBC) [Entitic vol] 95.4 fL Normal 81.0-99.0 [facility] Comment on above: Performed By: #### C BC ####[facility] Sqnsrxorwb8570[address] [place], [place] [address]Dr. Airam Tripathi MONO # 0.3 103/ul Normal 0.3-0.8 [facility] Comment on above: Performed By: #### C BC ####[facility] Goyealkcio090[address] [place], [place] [address]Dr. Airam Tripathi Monocytes/100 WBC (Bld) 3.1 % Normal 1.7-12.0 [facility] Comment on above: Performed By: #### C BC ####[facility] Bscugcvqpo899[address] [place], [place] [address]Dr. Airam Tripathi NEUT # 7.0 103/ul Critically high 1.4-6.5 [facility] Comment on above: Performed By: #### C BC ####[facility] W[address]pewxphy8[address] [place] [address]Dr. Airam Tripathi Neutrophils/100 WBC (Bld) 86.8 % Critically high 43.0-75.0 [facility] Comment on above: Performed By: #### C BC ####[facility] Glhubikdmz026[address] [place] [address]Dr. Airam Tripathi Platelet mean volume (Bld) [Entitic vol] 8.3 fL Critically low 9.5-13.5 [facility] Comment on above: Performed By: #### C BC ####[facility] Kcsdrawhvr535[address] [place], [place] [address]Dr. Airam Tripathi PLT 279 103/ul Normal 150-450 [facility] Comment on above: Performed By: #### C BC ####[facility] Omvzfhhouf5824[address] [place], [place] [address]DrKianna Tripathi RBC 3.03 106/ul Critically low 4.20-5.40 [facility] Comment on above: Performed By: #### C BC ####[facility] Hgwykvwudp725[address] [place], [place] [address]DrKianna Tripathi WBC 8.0 103/ul Normal 4.0-11.0 [facility] Comment on above: Performed By: #### C BC ####[facility] Kapjbzagfr[address] [place], [place] [address]DrKianna Tripathi PROF 14(COMP METB)on 022 Albumin [Mass/Vol] 2.8 g/dL Critically low 3.4-5.0 [facility] Comment on above: Performed By: #### B PLATE GLASS INSTALLER HELPER, CMP ####[facility] Vfddfyoqgo67399[address] [place], [place] [address]Dr. Airam Tripathi Albumin/Globulin [Mass ratio] 0.9 {ratio} Normal [facility] Comment on above: Performed By: #### B PLATE GLASS INSTALLER HELPER, CMP ####[facility] Sgomhoucbe235[address] [place], [place] [address]Dr. Airam Tripathi ALP [Catalytic activity/Vol] 136 U/L Critically high 46-116 [facility] Comment on above: Performed By: #### B PLATE GLASS INSTALLER HELPER, CMP ####[facility] K[address] [place] [address]Dr. Airam Tripathi ALT [Catalytic activity/Vol] 17 U/L Normal 14-59 [facility] Comment on above: Performed By: #### B PLATE GLASS INSTALLER HELPER, CMP ####[facility] Wvariiyttl109[address] [place], [place] [address]Dr. Airam Tripathi Anion gap [Moles/Vol] 12.9 mmol/L Normal [facility] Comment on above: Performed By: #### B PLATE GLASS INSTALLER HELPER, CMP ####[facility] Gmgscxaxbs159[address] [place], [place] [address]Dr. Airam Tripathi AST [Catalytic activity/Vol] 24 U/L Normal 15-37 [facility] Comment on above: Performed By: #### B PLATE GLASS INSTALLER HELPER, CMP ####[facility] Ebocejtyij707[address] [place], [place] [address]Dr. Airam Deuce Bilirubin [Mass/Vol] 0.2 mg/dL Normal 0.2-1.0 [facility] Comment on above: Performed By: #### B PLATE GLASS INSTALLER HELPER, CMP ####[facility] Osxprggqoh4514[address] [place], [place] [address]Dr. Airam Deuce Calcium [Mass/Vol] 8.7 mg/dL Normal 8.5-10.1 [facility] Comment on above: Performed By: #### B PLATE GLASS INSTALLER HELPER, CMP ####[facility] Lsqyuwgfno1970[address] [place], [place] [address]Dr. Airam Deuce Chloride [Moles/Vol] 102 mmol/L Normal 98-107 [facility] Comment on above: Performed By: #### B PLATE GLASS INSTALLER HELPER, CMP ####[facility] Yamawmjskm0423[address] [place], [place] [address]Dr. Selenaneil Deuce CO2 [Moles/Vol] 23.8 mmol/L Normal 21.0-32.0 [facility] Comment on above: Performed By: #### B PLATE GLASS INSTALLER HELPER, CMP ####[facility] Jnicvpazwv[address] [place], [place] [id number]. Airam Tripathi Creatinine [Mass/Vol] 1.08 mg/dL Critically high 0.55-1.02 [facility] Comment on above: Performed By: #### B PLATE GLASS INSTALLER HELPER, CMP ####[facility] Mivipiayjj[address] [place], [place] [address]Dr. Airam Tripathi EGFR-AF ARGENTINE >60 Normal >=60 [facility] Comment on above: Performed By: #### B PLATE GLASS INSTALLER HELPER, CMP ####[facility] Edtsnjpaqg385[address] [place], [place] [address]Dr. Ariam Tripathi EGFR-NON AF ARGENTINE 52 mL/min/1.73m2 Critically low >=60 [facility] Comment on above: Performed By: #### B PLATE GLASS INSTALLER HELPER, CMP ####[facility] Mzsfiumvcs95399[address] [place], [place] [address]Dr. Airam Tripathi Globulin (S) [Mass/Vol] 3.2 g/dL Normal [facility] Comment on above: Performed By: #### B PLATE GLASS INSTALLER HELPER, CMP ####[facility] Sigibicppp096[address] [place], [place] [address]Dr. Airam Tripathi Glucose [Mass/Vol] 99 mg/dL Normal 74-106 [facility] Comment on above: Performed By: #### B PLATE GLASS INSTALLER HELPER, CMP ####[facility] Qlaynzdcmt425[address] [place], [place] [address]Dr. Airam Tripathi Potassium [Moles/Vol] 4.7 mmol/L Normal 3.5-5.1 [facility] Comment on above: Performed By: #### B PLATE GLASS INSTALLER HELPER, CMP ####[facility] Cxbeqfgrsw100[address] [place], [place] [address]Dr. Airam Tripathi Protein [Mass/Vol] 6.0 g/dL Critically low 6.4-8.2 [facility] Comment on above: Performed By: #### B PLATE GLASS INSTALLER HELPER, CMP ####[facility] Txpvcymxbh937[address] [place], [place] [address]Dr. Airam Tripathi Sodium [Moles/Vol] 134 mmol/L Critically low 136-145 [facility] Comment on above: Performed By: #### B PLATE GLASS INSTALLER HELPER, CMP ####[facility] [address]rogh[address] [place] [address]Dr. Airam Tripathi Urea nitrogen [Mass/Vol] 19.0 mg/dL Critically high 7.0-18.0 [facility] Comment on above: Performed By: #### B PLATE GLASS INSTALLER HELPER, CMP ####[facility] Wbkgfgedps119[address] [place], [place] [address]Dr. Airam Tripathi Urea nitrogen/Creatinine [Mass ratio] 17.6 mg/mg Normal [facility] Comment on above: Performed By: #### B PLATE GLASS INSTALLER HELPER, CMP ####[facility] Vxcwhibfmo7899[address] [place], [place] [address]Dr. Airam Tripathi PROTIMEon 06-17-2022 INR Coag (PPP) [Relative time] 1.00 {INR} Normal [facility] Comment on above: Performed By: #### P T ####[facility] Lnthtkqaxb387[address] [place], [place] [address]Dr. Airam Tripathi INR GUIDELINES SEE BELOW Normal [facility] Comment on above: Result Comment: SIDRA RED INR: 2.0 - 3.0 CONDITIONS NOT LISTED BELOW 2.5 - 3.5 FOR PROSTHETIC HEART VALVE REPLACEMENT 2.5 - 3.5 RECURRENT THROMBOSIS Performed By: #### P T ####[facility] Fvedpwycpz102[address] [place], [place] [address]Dr. Airam Tripathi PT Coag (PPP) [Time] 10.8 s Normal 9.0-11.6 [facility] Comment on above: Performed By: #### P T ####[facility] Kdiwubbshw4590[address] [place], [place] [address]Dr. Airam Tripathi PTTon 06-17-2022 aPTT Coag (Bld) [Time] 27.2 s Normal 22.3-36.2 [facility] Comment on above: Performed By: #### P TT ####[facility] Rovgooosuy299[address] [place], [place] [address]Dr. Airam Tripathi BNPon 06-16-2022 Natriuretic peptide B (Bld) [Mass/Vol] 2293.0 pg/mL Critically high <=900.0 [facility] Comment on above: Performed By: #### C MP, BNP ####[facility] [address]jfinmmdd[address] [place] [id number]. Airam Tripathi CBC AUTO DIFFon 06-16-2022 BASO # 0.0 103/ul Normal 0.0-0.1 [facility] Comment on above: Performed By: #### C BC ####[facility] Hcxmpwnhlj30[address] [place] [address]Dr. Airam Tripathi Basophils/100 WBC (Bld) 0.4 % Normal 0.2-2.0 [facility] Comment on above: Performed By: #### C BC ####[facility] Kseidwghod13[address] [place], [place] [address]Dr. Airam Tripathi EO # 0.2 103/ul Normal 0.0-0.7 [facility] Comment on above: Performed By: #### C BC ####[facility] Ryttmnlule639[address] [place], [place] [address]Dr. Airam Tripathi Eosinophils/100 WBC (Bld) 3.0 % Normal 0.9-7.0 [facility] Comment on above: Performed By: #### C BC ####[facility] Svsxltxehw4912[address] [place], [place] [address]Dr. Airam Tripathi Erythrocyte distribution width (RBC) [Ratio] 13.3 % Normal 11.0-15.0 [facility] Comment on above: Performed By: #### C BC ####[facility] Enticubeaq2736[address] [place], [place] [address]Dr. Airam Tripathi Hematocrit (Bld) [Volume fraction] 26.2 % Critically low 36.0-48.0 [facility] Comment on above: Performed By: #### C BC ####[facility] Meaegucvul8530[address] [place], [place] [address]Dr. Airam Tripathi Hemoglobin (Bld) [Mass/Vol] 8.3 g/dL Critically low 12.0-16.0 [facility] Comment on above: Performed By: #### C BC ####[facility] Sjscootoru666[address] [place], [place] [address]Dr. Selenaneil Tripathi IG # 0.08 10e3/ul Critically high 0.00-0.03 [facility] Comment on above: Performed By: #### C BC ####[facility] [address]ozshzk[address] [place] [address]Dr. Selenaneil Tripathi IG % 1.1 % Critically high 0.0-0.5 [facility] Comment on above: Performed By: #### C BC ####[facility] Hrbhsnqhsg0[address] [place] [address]Dr. Airam Deuce LYMPH # 1.2 103/ul Normal 1.2-3.8 [facility] Comment on above: Performed By: #### C BC ####[facility] Lxalgmnxkf1793 [place] [address]DrKianna Selenaneil Tripathi Lymphocytes/100 WBC (Bld) 17.3 % Critically low 20.5-60.0 [facility] Comment on above: Performed By: #### C BC ####[facility] Lnvaaxcsir9[address] [place], [place] [address]Dr. Selenaneil Tripathi MANUAL DIFF REQ NO Normal [facility] Comment on above: Performed By: #### C BC ####[facility] [address]xrtyqqh[address] [place] [id number]. Airam Deuce MCH (RBC) [Entitic mass] 30.3 pg Normal 26.7-34.0 [facility] Comment on above: Performed By: #### C BC ####[facility] Hqfvelybjg[address] [place], [place] [id number]. Airam Deuce MCHC (RBC) [Mass/Vol] 31.7 g/dL Normal 29.9-35.2 [facility] Comment on above: Performed By: #### C BC ####[facility] Exoawfsseq[address] [place], [place] [id number] Airam Deuce MCV (RBC) [Entitic vol] 95.6 fL Normal 81.0-99.0 [facility] Comment on above: Performed By: #### C BC ####[facility] Djvtzujqzh86[address] [place] [address]DrKianna Tripathi MONO # 0.5 103/ul Normal 0.3-0.8 [facility] Comment on above: Performed By: #### C BC ####[facility] R[address]neyjuofy[address] [place] [phone]. Airam Tripathi Monocytes/100 WBC (Bld) 7.1 % Normal 1.7-12.0 [facility] Comment on above: Performed By: #### C BC ####[facility] M[address]jfdklyl4518 [place] [phone]. Airam Tripathi NEUT # 5.0 103/ul Normal 1.4-6.5 [facility] Comment on above: Performed By: #### C BC ####[facility] Igzjmncuef5227 [place] [phone]. Airam Tripathi Neutrophils/100 WBC (Bld) 71.1 % Normal 43.0-75.0 [facility] Comment on above: Performed By: #### C BC ####[facility] Moguenldsi8[address] [place] [phone]. Airam Tripathi Platelet mean volume (Bld) [Entitic vol] 8.2 fL Critically low 9.5-13.5 [facility] Comment on above: Performed By: #### C BC ####[facility] L[address]jrsqlrt39[address] [place] [id number]. Airam Tripathi PLT 247 103/ul Normal 150-450 [facility] Comment on above: Performed By: #### C BC ####[facility] Lrnnhieppo33[address] [place] [id number]. Airam Tripathi RBC 2.74 106/ul Critically low 4.20-5.40 [facility] Comment on above: Performed By: #### C BC ####[facility] Iigmupzdpv9613 [place] [phone]. Airam Tripathi WBC 7.1 103/ul Normal 4.0-11.0 [facility] Comment on above: Performed By: #### C BC ####[facility] P[address]rolbfzf7[address] [place] [phone]. Airam Tripathi CTA CHEST WO W CONon 022 CTA CHEST WO W CON Normal [facility] PROF 14(COMP METB)on 022 Albumin [Mass/Vol] 2.6 g/dL Critically low 3.4-5.0 [facility] Comment on above: Performed By: #### C MP, BNP ####[facility] Isnb[address]qpcim[address] [place] [address]Dr. Airam Tripathi Albumin/Globulin [Mass ratio] 0.8 {ratio} Normal [facility] Comment on above: Performed By: #### C MP, BNP ####[facility] Isxqlhdnbb5460 [place] [address]Dr. Airam Tripathi ALP [Catalytic activity/Vol] 130 U/L Critically high 46-116 [facility] Comment on above: Performed By: #### C MP, BNP ####[facility] Kyitydkmav[address] [place], [place] [address]Dr. Airam Tripathi ALT [Catalytic activity/Vol] 12 U/L Critically low 14-59 [facility] Comment on above: Performed By: #### C MP, BNP ####[facility] Alfnospkpf[address] [place], [place] [address]Dr. Airam Tripathi Anion gap [Moles/Vol] 11.8 mmol/L Normal [facility] Comment on above: Performed By: #### C MP, BNP ####[facility] Xavofmuxya60[address] [place], [place] [address]Dr. Airam Tripathi AST [Catalytic activity/Vol] 22 U/L Normal 15-37 [facility] Comment on above: Performed By: #### C MP, BNP ####[facility] Iwtrvnbgmh[address] [place], [place] [address]Dr. Airam Tripathi Bilirubin [Mass/Vol] 0.2 mg/dL Normal 0.2-1.0 [facility] Comment on above: Performed By: #### C MP, BNP ####[facility] Lsssqccwsi3650[address] [place], [place] [address]Dr. Airam Tripathi Calcium [Mass/Vol] 8.0 mg/dL Critically low 8.5-10.1 [facility] Comment on above: Performed By: #### C MP, BNP ####[facility] Hsqotkpecu84[address] [place] [address]Dr. Airam Tripathi Chloride [Moles/Vol] 104 mmol/L Normal 98-107 [facility] Comment on above: Performed By: #### C MP, BNP ####[facility] Uqtarjbena19[address] [place] [address]Dr. Airam Tripathi CO2 [Moles/Vol] 22.8 mmol/L Normal 21.0-32.0 [facility] Comment on above: Performed By: #### C MP, BNP ####[facility] Trkfurzmze8[address] [place] [address]Dr. Airam Tripathi Creatinine [Mass/Vol] 1.07 mg/dL Critically high 0.55-1.02 [facility] Comment on above: Performed By: #### C MP, BNP ####[facility] Vpgedhetan[address] [place], [place] [address]Dr. Airam Tripathi EGFR-AF ARGENTINE >60 Normal >=60 [facility] Comment on above: Performed By: #### C MP, BNP ####[facility] Iqdoqdwnqe[address] [place], [place] [address]Dr. Airam Tripathi EGFR-NON AF ARGENTINE 52 mL/min/1.73m2 Critically low >=60 [facility] Comment on above: Performed By: #### C MP, BNP ####[facility] Lsqmgefjsz1150 [place] [address]Dr. Airam Tripathi Globulin (S) [Mass/Vol] 3.1 g/dL Normal [facility] Comment on above: Performed By: #### C MP, BNP ####[facility] Fhuiwbptos2771 [place] [address]Dr. Airam Tripathi Glucose [Mass/Vol] 85 mg/dL Normal 74-106 [facility] Comment on above: Performed By: #### C MP, BNP ####[facility] Tlniiyrryq7193 [place] [address]Dr. Airam Tripathi Potassium [Moles/Vol] 4.6 mmol/L Normal 3.5-5.1 [facility] Comment on above: Performed By: #### C MP, BNP ####[facility] Nmziixlack[address] [place], [place] [address]Dr. Airam Tripathi Protein [Mass/Vol] 5.7 g/dL Critically low 6.4-8.2 [facility] Comment on above: Performed By: #### C MP, BNP ####[facility] [address]ohahcvdmy[address] [place], [place] [address]Dr. Airam Tripathi Sodium [Moles/Vol] 134 mmol/L Critically low 136-145 [facility] Comment on above: Performed By: #### C MP, BNP ####[facility] Tbqizqitus93[address] [place], [place] [address]Dr. Selenaneil Tripathi Urea nitrogen [Mass/Vol] 24.0 mg/dL Critically high 7.0-18.0 [facility] Comment on above: Performed By: #### C MP, BNP ####[facility] Iwknvsvopb[address] [place], [place] [address]Dr. Airam Tripathi Urea nitrogen/Creatinine [Mass ratio] 22.4 mg/mg Normal [facility] Comment on above: Performed By: #### C MP, BNP ####[facility] Lvlrcszrqu[address] [place], [place] [address]Dr. Airam Tripathi BNPon 06-15-2022 Natriuretic peptide B (Bld) [Mass/Vol] 934.0 pg/mL Critically high <=900.0 [facility] Comment on above: Performed By: #### C MP, BNP ####[facility] Klijyyokvn[address] [place], [place] [address]Dr. Selenaneil Deuce CBC AUTO DIFFon 06-15-2022 BASO # 0.0 103/ul Normal 0.0-0.1 [facility] Comment on above: Performed By: #### C BC ####[facility] Unxmjxsicu[address] [place], [place] [address]Dr. Selenaneil Tripathi Basophils/100 WBC (Bld) 0.2 % Normal 0.2-2.0 [facility] Comment on above: Performed By: #### C BC ####[facility] Kixzfaqkwh17[address] [place], [place] [address]Dr. Airam Tripathi EO # 0.1 103/ul Normal 0.0-0.7 [facility] Comment on above: Performed By: #### C BC ####[facility] Aqcsirgeyt[address] [place] [address]Dr. Airam Deuce Eosinophils/100 WBC (Bld) 2.1 % Normal 0.9-7.0 [facility] Comment on above: Performed By: #### C BC ####[facility] Jfoeqggyag217[address] [place], [place] [address]Dr. Airam Deuce Erythrocyte distribution width (RBC) [Ratio] 12.9 % Normal 11.0-15.0 [facility] Comment on above: Performed By: #### C BC ####[facility] Digtsafhwq824[address] [place], [place] [address]Dr. Airam Tripathi Hematocrit (Bld) [Volume fraction] 24.9 % Critically low 36.0-48.0 [facility] Comment on above: Performed By: #### C BC ####[facility] Xivmviafds109[address] [place], [place] [address]Dr. Airam Tripathi Hemoglobin (Bld) [Mass/Vol] 7.9 g/dL Critically low 12.0-16.0 [facility] Comment on above: Performed By: #### C BC ####[facility] Oawbuxveif310[address] [place], [place] [address]Dr. Airam Tripathi IG # 0.05 10e3/ul Critically high 0.00-0.03 [facility] Comment on above: Performed By: #### C BC ####[facility] Cnerwpavuo045[address] [place], [place] [address]Dr. Airam Tripathi IG % 0.8 % Critically high 0.0-0.5 [facility] Comment on above: Performed By: #### C BC ####[facility] Xhvqsvdudf22[address] [place], [place] [address]DrKianna Tripathi LYMPH # 0.9 103/ul Critically low 1.2-3.8 [facility] Comment on above: Performed By: #### C BC ####[facility] Lmjetvzgoh[address] [place], [place] [address]DrKianna Tripathi Lymphocytes/100 WBC (Bld) 13.7 % Critically low 20.5-60.0 [facility] Comment on above: Performed By: #### C BC ####[facility] Ymbkqlivoy414[address] [place], [place] [address]DrKianna Tripathi MANUAL DIFF REQ NO Normal [facility] Comment on above: Performed By: #### C BC ####[facility] Vtysumujyx6359 [place] [address]DrKianna Tripathi MCH (RBC) [Entitic mass] 30.2 pg Normal 26.7-34.0 [facility] Comment on above: Performed By: #### C BC ####[facility] Hocptzgrzu053[address] [place], [place] [address]DrKianna Tripathi MCHC (RBC) [Mass/Vol] 31.7 g/dL Normal 29.9-35.2 [facility] Comment on above: Performed By: #### C BC ####[facility] Ezpivusebp716[address] [place], [place] [address]DrKianna Tripathi MCV (RBC) [Entitic vol] 95.0 fL Normal 81.0-99.0 [facility] Comment on above: Performed By: #### C BC ####[facility] Rfjjchbgkq2333[address] [place], [place] [address]DrKianna Tripathi MONO # 0.4 103/ul Normal 0.3-0.8 [facility] Comment on above: Performed By: #### C BC ####[facility] Kezmozsoxx99[address] [place], [place] [address]DrKianna Tripathi Monocytes/100 WBC (Bld) 6.7 % Normal 1.7-12.0 [facility] Comment on above: Performed By: #### C BC ####[facility] Qqmlrlthdo3037[address] [place], [place] [address]DrKianna Tripathi NEUT # 5.0 103/ul Normal 1.4-6.5 [facility] Comment on above: Performed By: #### C BC ####[facility] Ziwpyeezmt998[address] [place], [place] [address]DrKianna Tripathi Neutrophils/100 WBC (Bld) 76.5 % Critically high 43.0-75.0 [facility] Comment on above: Performed By: #### C BC ####[facility] Flllkllrzi025[address] [place], [place] [address]Dr. Airam Tripathi Platelet mean volume (Bld) [Entitic vol] 8.4 fL Critically low 9.5-13.5 [facility] Comment on above: Performed By: #### C BC ####[facility] Bnlalwugio605[address] [place], [place] [address]Dr. Airam Deuce PLT 202 103/ul Normal 150-450 [facility] Comment on above: Performed By: #### C BC ####[facility] Njpuwbjtox709[address] [place], [place] [address]Dr. Airam Deuce RBC 2.62 106/ul Critically low 4.20-5.40 [facility] Comment on above: Performed By: #### C BC ####[facility] Qjmxyfmexu9432[address] [place], [place] [address]Dr. Airam Deuce WBC 6.6 103/ul Normal 4.0-11.0 [facility] Comment on above: Performed By: #### C BC ####[facility] Nkukmdcpze2825[address] [place], [place] [address]DrKianna Airam Deuce OSMOLALITYon 06-15-2022 Osmolality [Osmolality] 269 mosm/kg Critically low 275-295 [facility] Comment on above: Performed By: #### O SMO ####[facility] Mzsudruxgz[address] [place], [place] [address]DrKianna Selenaneil Tripathi PROF 14(COMP METB)on 022 Albumin [Mass/Vol] 2.5 g/dL Critically low 3.4-5.0 [facility] Comment on above: Performed By: #### C MP, BNP ####[facility] Wiqjhfuzjz665[address] [place], [place] [address]Dr. Airam Tripathi Albumin/Globulin [Mass ratio] 0.9 {ratio} Normal [facility] Comment on above: Performed By: #### C MP, BNP ####[facility] Zvhbrfulex57[address] [place] [address]Dr. Airam Tripathi ALP [Catalytic activity/Vol] 128 U/L Critically high 46-116 [facility] Comment on above: Performed By: #### C MP, BNP ####[facility] Wfkzodrkgd24[address] [place], [place] [address]Dr. Airam Tripathi ALT [Catalytic activity/Vol] 14 U/L Normal 14-59 [facility] Comment on above: Performed By: #### C MP, BNP ####[facility] Ipagzilycn7023[address] [place], [place] [address]Dr. Airam Tripathi Anion gap [Moles/Vol] 10.4 mmol/L Normal [facility] Comment on above: Performed By: #### C MP, BNP ####[facility] Mzvdkcdlpl066[address] [place], [place] [address]Dr. Airam Tripathi AST [Catalytic activity/Vol] 23 U/L Normal 15-37 [facility] Comment on above: Performed By: #### C MP, BNP ####[facility] Qlulriyllc739[address] [place], [place] [address]Dr. Airam Tripathi Bilirubin [Mass/Vol] 0.2 mg/dL Normal 0.2-1.0 [facility] Comment on above: Performed By: #### C MP, BNP ####[facility] Opksdracuh158[address] [place], [place] [address]Dr. Airam Tripathi Calcium [Mass/Vol] 7.4 mg/dL Critically low 8.5-10.1 [facility] Comment on above: Performed By: #### C MP, BNP ####[facility] Trslflvsmz4575[address] [place], [place] [address]Dr. Airam Tripathi Chloride [Moles/Vol] 99 mmol/L Normal 98-107 [facility] Comment on above: Performed By: #### C MP, BNP ####[facility] Lrhekanotj296[address] [place], [place] [address]Dr. Airam Tripathi CO2 [Moles/Vol] 24.1 mmol/L Normal 21.0-32.0 [facility] Comment on above: Performed By: #### C MP, BNP ####[facility] Qnluhplvql2871 [place] [id number]. Airam Tripathi Creatinine [Mass/Vol] 1.45 mg/dL Critically high 0.55-1.02 [facility] Comment on above: Performed By: #### C MP, BNP ####[facility] Mowbbqigiu032[address] [place], [place] [address]Dr. Airam Tripathi EGFR-AF ARGENTINE 45 mL/min/1.73m2 Critically low >=60 [facility] Comment on above: Performed By: #### C MP, BNP ####[facility] Bzvuqwosds207[address] [place], [place] [address]Dr. Airam Tripathi EGFR-NON AF ARGENTINE 37 mL/min/1.73m2 Critically low >=60 [facility] Comment on above: Performed By: #### C MP, BNP ####[facility] Rmdmyehyat524[address] [place], [place] [address]Dr. Airam Tripathi Globulin (S) [Mass/Vol] 2.8 g/dL Normal [facility] Comment on above: Performed By: #### C MP, BNP ####[facility] Svjbpdfimr727[address] [place], [place] [address]Dr. Airam Tripathi Glucose [Mass/Vol] 82 mg/dL Normal 74-106 [facility] Comment on above: Performed By: #### C MP, BNP ####[facility] Oofakptnko034[address] [place], [place] [address]Dr. Airam Tripathi Potassium [Moles/Vol] 4.5 mmol/L Normal 3.5-5.1 [facility] Comment on above: Performed By: #### C MP, BNP ####[facility] Ukrmfpqxkt734[address] [place], [place] [address]Dr. Airam Tripathi Protein [Mass/Vol] 5.3 g/dL Critically low 6.4-8.2 [facility] Comment on above: Performed By: #### C MP, BNP ####[facility] Sudskvqpta7701[address] [place], [place] [address]Dr. Airam Tripathi Sodium [Moles/Vol] 129 mmol/L Critically low 136-145 [facility] Comment on above: Performed By: #### C MP, BNP ####[facility] Hxnsujlscn0833[address] [place], [place] [address]Dr. Airam Tripathi Urea nitrogen [Mass/Vol] 35.0 mg/dL Critically high 7.0-18.0 [facility] Comment on above: Performed By: #### C MP, BNP ####[facility] Bymsquipek0495[address] [place], [place] [address]Dr. Selenaneil Tripathi Urea nitrogen/Creatinine [Mass ratio] 24.1 mg/mg Normal [facility] Comment on above: Performed By: #### C MP, BNP ####[facility] Zbozeyiklf6037[address] [place], [place] [address]Dr. Airam Tripathi T3, TOTAL (TRIIODOTHYRONINE) on 06-15-2022 T3, TOTAL 113 ng/dL Normal 71-180 [facility] Comment on above: Performed By: #### T 3TOTAL ####[facility] Lkvgabagya9401[address] [place], [place] [address]Dr. Airam Tripathi BNPon 06-14-2022 Natriuretic peptide B (Bld) [Mass/Vol] 1024.0 pg/mL Critically high <=900.0 [facility] Comment on above: Performed By: #### B PLATE GLASS INSTALLER HELPER, CMP ####[facility] Dqfalcubyu375[address] [place], [place] [address]Dr. Airam Tripathi CARDIAC CONSUELO 3-6on 2 CK [Catalytic activity/Vol] 116 U/L Normal 26-192 [facility] Comment on above: Performed By: #### C MREP ####[facility] Lgpbhguipa718[address] [place], [place] [address]Dr. Airam Deuce CK.MB [Mass/Vol] ng/mL Normal <=3.60 [facility] Comment on above: Performed By: #### C MREP ####[facility] Mcnjxzigjo546[address] [place], [place] [address]Dr. Airam Tripathi HSTROP 6.0 pg/mL Normal 4.0-51.3 [facility] Comment on above: Result Comment: CUT- OFF POINTS HAVE BEEN ESTABLISHED BASED ON THE FOURTH UNIVERSAL DEFINITIONS OF MYOCARDIALINFARCTION. THE UPPER REFERENCE LIMIT (URL) OF TROPONIN, DEFINED THE 99TH PERCENTILE OFcTnI DISTRIBUTION IN A REFERENCE POPULATION, HAS BEEN CONFIRMED THE DECISION THRESHOLDFOR [place] DIAGNOSIS. Performed By: #### C MREP ####[facility] [address]lwpnhu[address] [place] [address]Dr. Airam Tripathi CBC AUTO DIFFon 06-14-2022 BASO # 0.0 103/ul Normal 0.0-0.1 [facility] Comment on above: Performed By: #### C BC ####[facility] Szwsoxrmsd0284 [place] [address]Dr. Airam Tripathi Basophils/100 WBC (Bld) 0.3 % Normal 0.2-2.0 [facility] Comment on above: Performed By: #### C BC ####[facility] Adjfeelqel833[address] [place], [place] [address]Dr. Airam Tripathi EO # 0.2 103/ul Normal 0.0-0.7 [facility] Comment on above: Performed By: #### C BC ####[facility] Mlkdslpzvn110[address] [place] [address]Dr. Airam Tripathi Eosinophils/100 WBC (Bld) 2.0 % Normal 0.9-7.0 [facility] Comment on above: Performed By: #### C BC ####[facility] Fnxzjdrqke85[address] [place] [address]Dr. Airam Tripathi Erythrocyte distribution width (RBC) [Ratio] 12.8 % Normal 11.0-15.0 [facility] Comment on above: Performed By: #### C BC ####[facility] Rilrlayvvz79[address] [place] [address]Dr. Airam Tripathi Hematocrit (Bld) [Volume fraction] 27.4 % Critically low 36.0-48.0 [facility] Comment on above: Performed By: #### C BC ####[facility] Flreshattw27[address] [place], [place] [address]Dr. Airam Tripathi Hemoglobin (Bld) [Mass/Vol] 8.7 g/dL Critically low 12.0-16.0 [facility] Comment on above: Performed By: #### C BC ####[facility] Qmxakopbtv4863 [place] [id number]. Airam Tripathi IG # 0.11 10e3/ul Critically high 0.00-0.03 [facility] Comment on above: Performed By: #### C BC ####[facility] Wuokosaqvj4334 [place] [id number]. Airam Tripathi IG % 1.1 % Critically high 0.0-0.5 [facility] Comment on above: Performed By: #### C BC ####[facility] Ljbrxplohq[address] [place], [place] [address]Dr. Airam Tripathi LYMPH # 0.9 103/ul Critically low 1.2-3.8 [facility] Comment on above: Performed By: #### C BC ####[facility] Vdmrzhqgud[address] [place], [place] [address]Dr. Selenaneil Tripathi Lymphocytes/100 WBC (Bld) 9.7 % Critically low 20.5-60.0 [facility] Comment on above: Performed By: #### C BC ####[facility] Uunhykuyax[address] [place], [place] [address]Dr. Airam Tripathi MANUAL DIFF REQ NO Normal [facility] Comment on above: Performed By: #### C BC ####[facility] Izsduyxlxu0825[address] [place], [place] [address]Dr. Airam Tripathi MCH (RBC) [Entitic mass] 30.0 pg Normal 26.7-34.0 [facility] Comment on above: Performed By: #### C BC ####[facility] Gdprsdaazl10[address] [place], [place] [address]Dr. Airam Tripathi MCHC (RBC) [Mass/Vol] 31.8 g/dL Normal 29.9-35.2 [facility] Comment on above: Performed By: #### C BC ####[facility] Keffwrsoem4258 [place] [address]Dr. Airam Tripathi MCV (RBC) [Entitic vol] 94.5 fL Normal 81.0-99.0 [facility] Comment on above: Performed By: #### C BC ####[facility] Qxdknfzfrn01[address] [place] [id number]. Airam Tripathi MONO # 0.6 103/ul Normal 0.3-0.8 [facility] Comment on above: Performed By: #### C BC ####[facility] Cxwwguljzu4831 [place] [id number]. Airam Tripathi Monocytes/100 WBC (Bld) 5.7 % Normal 1.7-12.0 [facility] Comment on above: Performed By: #### C BC ####[facility] Hyboauxilp4034 [place] [id number]. Airam Tripathi NEUT # 7.8 103/ul Critically high 1.4-6.5 [facility] Comment on above: Performed By: #### C BC ####[facility] Vynsyrlckr72[address] [place] [address]Dr. Airam Tripathi Neutrophils/100 WBC (Bld) 81.2 % Critically high 43.0-75.0 [facility] Comment on above: Performed By: #### C BC ####[facility] Zyzqltwjzc7601 [place] [address]Dr. Airam Tripathi Platelet mean volume (Bld) [Entitic vol] 8.6 fL Critically low 9.5-13.5 [facility] Comment on above: Performed By: #### C BC ####[facility] Dnslvzbipn2691 [place] [id number]. Airam Tripathi PLT 283 103/ul Normal 150-450 [facility] Comment on above: Performed By: #### C BC ####[facility] Dbzenexppw[address] [place], [place] [id number]. Airam Tripathi RBC 2.90 106/ul Critically low 4.20-5.40 [facility] Comment on above: Performed By: #### C BC ####[facility] Vjnudtmuld2536 [place] [id number]. Airam Tripathi WBC 9.6 103/ul Normal 4.0-11.0 [facility] Comment on above: Performed By: #### C BC ####[facility] Cpsgomwmvm9072 [place] [address]Dr. Airam Tripathi OSMOLALITYon 06-14-2022 Osmolality [Osmolality] 273 mosm/kg Critically low 275-295 [facility] Comment on above: Performed By: #### O SMO ####[facility] Ywijorttzg70[address] [place], [place] [address]Dr. Airam Tripathi PROF 14(COMP METB)on 022 Albumin [Mass/Vol] 3.2 g/dL Critically low 3.4-5.0 [facility] Comment on above: Performed By: #### B PLATE GLASS INSTALLER HELPER, CMP ####[facility] Egbvfhsjhs429[address] [place], [place] [address]Dr. Airam Tripathi Albumin/Globulin [Mass ratio] 1.0 {ratio} Normal [facility] Comment on above: Performed By: #### B PLATE GLASS INSTALLER HELPER, CMP ####[facility] Vrkswvuuzb6526[address] [place], [place] [address]Dr. Airam Tripathi ALP [Catalytic activity/Vol] 154 U/L Critically high 46-116 [facility] Comment on above: Performed By: #### B PLATE GLASS INSTALLER HELPER, CMP ####[facility] Qipsjgviqu964[address] [place], [place] [address]Dr. Airam Tripathi ALT [Catalytic activity/Vol] 17 U/L Normal 14-59 [facility] Comment on above: Performed By: #### B PLATE GLASS INSTALLER HELPER, CMP ####[facility] Cazakyfvcz6374 [place] [address]Dr. Airam Tripathi Anion gap [Moles/Vol] 12.0 mmol/L Normal [facility] Comment on above: Performed By: #### B PLATE GLASS INSTALLER HELPER, CMP ####[facility] Qwafnbhzgk1846 [place] [address]Dr. Airam Tripathi AST [Catalytic activity/Vol] 25 U/L Normal 15-37 [facility] Comment on above: Performed By: #### B PLATE GLASS INSTALLER HELPER, CMP ####[facility] Ksxdoosxho739[address] [place], [place] [address]Dr. Airam Tripathi Bilirubin [Mass/Vol] 0.3 mg/dL Normal 0.2-1.0 [facility] Comment on above: Performed By: #### B PLATE GLASS INSTALLER HELPER, CMP ####[facility] Vexuyiqypp7347 [place] [id number]. Airam Tripathi Calcium [Mass/Vol] 7.6 mg/dL Critically low 8.5-10.1 [facility] Comment on above: Performed By: #### B PLATE GLASS INSTALLER HELPER, CMP ####[facility] Pjfamtqhsh87[address] [place], [place] [address]Dr. Airam Tripathi Chloride [Moles/Vol] 92 mmol/L Critically low 98-107 [facility] Comment on above: Performed By: #### B PLATE GLASS INSTALLER HELPER, CMP ####[facility] Pldxhxwvyg5230[address] [place], [place] [address]Dr. Airam Tripathi CO2 [Moles/Vol] 25.2 mmol/L Normal 21.0-32.0 [facility] Comment on above: Performed By: #### B PLATE GLASS INSTALLER HELPER, CMP ####[facility] Xovddbsxkj525[address] [place], [place] [address]Dr. Airam Tripathi Creatinine [Mass/Vol] 1.83 mg/dL Critically high 0.55-1.02 [facility] Comment on above: Performed By: #### B PLATE GLASS INSTALLER HELPER, CMP ####[facility] Ylrtsvqfzq812[address] [place], [place] [address]Dr. Airam Tripathi EGFR-AF ARGENTINE 34 mL/min/1.73m2 Critically low >=60 [facility] Comment on above: Performed By: #### B PLATE GLASS INSTALLER HELPER, CMP ####[facility] Gosxvlgcsl07[address] [place], [place] [address]Dr. Airam Tripathi EGFR-NON AF ARGENTINE 28 mL/min/1.73m2 Critically low >=60 [facility] Comment on above: Performed By: #### B PLATE GLASS INSTALLER HELPER, CMP ####[facility] Odqnvzpqxk0988[address] [place], [place] [address]Dr. Airam Tripathi Globulin (S) [Mass/Vol] 3.1 g/dL Normal [facility] Comment on above: Performed By: #### B PLATE GLASS INSTALLER HELPER, CMP ####[facility] Czctlknuuf257[address] [place], [place] [address]Dr. Airam Tripathi Glucose [Mass/Vol] 77 mg/dL Normal 74-106 [facility] Comment on above: Performed By: #### B PLATE GLASS INSTALLER HELPER, CMP ####[facility] Twgnhtbwxx65[address] [place], [place] [address]Dr. Airam Tripathi Potassium [Moles/Vol] 4.2 mmol/L Normal 3.5-5.1 [facility] Comment on above: Performed By: #### B PLATE GLASS INSTALLER HELPER, CMP ####[facility] Mjjsujohja7[address] [place], [place] [address]Dr. Airam Tripathi Protein [Mass/Vol] 6.3 g/dL Critically low 6.4-8.2 [facility] Comment on above: Performed By: #### B PLATE GLASS INSTALLER HELPER, CMP ####[facility] Xdnaaapkpa13[address] [place], [place] [address]Dr. Airam Tripathi Sodium [Moles/Vol] 125 mmol/L Critically low 136-145 [facility] Comment on above: Performed By: #### B PLATE GLASS INSTALLER HELPER, CMP ####[facility] Yjscpiuvpa1526[address] [place], [place] [address]Dr. Airam Tripathi Urea nitrogen [Mass/Vol] 35.0 mg/dL Critically high 7.0-18.0 [facility] Comment on above: Performed By: #### B PLATE GLASS INSTALLER HELPER, CMP ####[facility] Ajgxugbitj215[address] [place], [place] [address]Dr. Airam Tripathi Urea nitrogen/Creatinine [Mass ratio] 19.1 mg/mg Normal [facility] Comment on above: Performed By: #### B PLATE GLASS INSTALLER HELPER, CMP ####[facility] Vdyvcpwyva60[address] [place], [place] [address]Dr. Airam Tripathi UA RANDOM W/MICROSCOPICon BACTERIA TRACE Abnormal NONE SEEN [facility] Comment on above: Performed By: #### U AMIC ####[facility] Qvwekxjsgs216[address] [place], [place] [address]Dr. Airam Tripathi Bilirubin Ql (U) Negative Normal NEGATIVE [facility] Comment on above: Performed By: #### U AMIC ####[facility] Frlnvivjuk[address] [place], [place] [address]Dr. Airam Tripathi CAST NONE SEEN Normal NONE SEEN [facility] Comment on above: Performed By: #### U AMIC ####[facility] Ytuiviuscw7313 [place] [address]Dr. Airam Tripathi Clarity (U) CLEAR Normal CLEAR [facility] Comment on above: Performed By: #### U AMIC ####[facility] Myrpauctfo2665 [place] [address]Dr. Selenaneil Tripathi Color (U) LT. YELLOW Normal YELLOW [facility] Comment on above: Performed By: #### U AMIC ####[facility] Ukqfbqcmoa26[address] [place] [address]Dr. Selenaneil Tripathi Crystals LM Nom (Urine sed) NONE SEEN Normal NONE SEEN [facility] Comment on above: Performed By: #### U AMIC ####[facility] Tzggnydzto2940[address] [place], [place] [address]Dr. Airam Tripathi Epithelial cells LM Ql (Urine sed) FEW Abnormal NONE SEEN /RARE [facility] Comment on above: Performed By: #### U AMIC ####[facility] Smtjnpwtil[address] [place], [place] [address]Dr. Airam Tripathi Glucose Ql (U) Negative Normal NEGATIVE [facility] Comment on above: Performed By: #### U AMIC ####[facility] Xppzrazela[address] [place], [place] [address]Dr. Yilan Tripathi Hemoglobin Ql (U) Negative Normal NEGATIVE [facility] Comment on above: Performed By: #### U AMIC ####[facility] Smbcmzhppo819[address] [place], [place] [address]Dr. Selnealan Tripathi Ketones Ql (U) Negative Normal NEGATIVE [facility] Comment on above: Performed By: #### U AMIC ####[facility] Hveeaytzcm3224[address] [place], [place] [address]Dr. Selenalan Tripathi LEUKOCYTES MODERATE Abnormal NEGATIVE [facility] Comment on above: Performed By: #### U AMIC ####[facility] Dysllagogd79[address] [place], [place] [address]Dr. Yilan Tripathi MUCOUS NONE SEEN Normal NONE SEEN [facility] Comment on above: Performed By: #### U AMIC ####[facility] Iacvmyqsju38[address] [place] [address]Dr. Selenaneil Tripathi Nitrite Ql (U) Negative Normal NEGATIVE [facility] Comment on above: Performed By: #### U AMIC ####[facility] Gmeglgvgsz7705 [place] [address]Dr. Airam Tripathi pH (U) 5.5 [pH] Normal 5-9 [facility] Comment on above: Performed By: #### U AMIC ####[facility] Npyxfunivt7630 [place] [address]Dr. Airam Tripathi RBC 0-2 Normal 0-2 [facility] Comment on above: Performed By: #### U AMIC ####[facility] Knwtskyqts[address] [place], [place] [address]Dr. Airam Tripathi SPEC GRAVITY 1.020 Normal 1.005-<=1. 025 [facility] Comment on above: Performed By: #### U AMIC ####[facility] Uozjmtixoh[address] [place], [place] [address]Dr. Airam Tripathi UA PROTEIN Negative Normal NEGATIVE/ TRACE [facility] Comment on above: Performed By: #### U AMIC ####[facility] Xelsyoirnm42[address] [place], [place] [address]Dr. Airam Tripathi Urobilinogen Qn (U) 0.2 {Ligia'U}/dL Normal 0.2 - 1. 0 [facility] Comment on above: Performed By: #### U AMIC ####[facility] Wtksrktltd[address] [place], [place] [address]Dr. Airam Tripathi WBC 5-10 Abnormal NONE SEEN [facility] Comment on above: Performed By: #### U AMIC ####[facility] Ktofxqbiox93[address] [place], [place] [address]Dr. Airam Tripathi BNPon 06-13-2022 Natriuretic peptide B (Bld) [Mass/Vol] 1496.0 pg/mL Critically high <=900.0 [facility] Comment on above: Performed By: #### T 4, BNP, MG, TSH, CMADM, CRP, CMP ####[facility] [address] [place] [id number]. Airam Tripathi CARDIAC CONSUELO 3-6on 2 CK [Catalytic activity/Vol] 125 U/L Normal 26-192 [facility] Comment on above: Performed By: #### C MREP ####[facility] [address] [place], [place] [address]Aw. Airam Tripathi CK.MB [Mass/Vol] ng/mL Normal <=3.60 [facility] Comment on above: Performed By: #### C MREP ####[facility] Ljbv[address]epd[address] [place] [id number]. Airam Tripathi HSTROP 5.8 pg/mL Normal 4.0-51.3 [facility] Comment on above: Result Comment: CUT- OFF POINTS HAVE BEEN ESTABLISHED BASED ON THE FOURTH UNIVERSAL DEFINITIONS OF MYOCARDIALINFARCTION. THE UPPER REFERENCE LIMIT (URL) OF TROPONIN, DEFINED THE 99TH PERCENTILE OFcTnI DISTRIBUTION IN A REFERENCE POPULATION, HAS BEEN CONFIRMED THE DECISION THRESHOLDFOR [place] DIAGNOSIS. Performed By: #### C MREP ####[facility] [address]pb[address]eknpj[address] [place] [id number]. Airam Tripathi CARDIAC CONSUELO ADMITon 022 CK [Catalytic activity/Vol] 121 U/L Normal 26-192 [facility] Comment on above: Performed By: #### T 4, BNP, MG, TSH, CMADM, CRP, CMP ####[facility] Gyiumfnigc4[address] [place] [phone]. Airam Tripathi CK.MB [Mass/Vol] 3.06 ng/mL Normal <=3.60 [facility] Comment on above: Performed By: #### T 4, BNP, MG, TSH, CMADM, CRP, CMP ####[facility] [address] [place] [address]Dr. Airam Tripathi HSTROP 6.9 pg/mL Normal 4.0-51.3 [facility] Comment on above: Result Comment: CUT- OFF POINTS HAVE BEEN ESTABLISHED BASED ON THE FOURTH UNIVERSAL DEFINITIONS OF MYOCARDIALINFARCTION. THE UPPER REFERENCE LIMIT (URL) OF TROPONIN, DEFINED THE 99TH PERCENTILE OFcTnI DISTRIBUTION IN A REFERENCE POPULATION, HAS BEEN CONFIRMED THE DECISION THRESHOLDFOR [place] DIAGNOSIS. Performed By: #### T 4, BNP, MG, TSH, CMADM, CRP, CMP ####[facility] [address]ftndq[address] [place] [address]Dr. Airam Deuce KATHY 124 ng/mL Critically high 9-82 [facility] Comment on above: Performed By: #### T 4, BNP, MG, TSH, CMADM, CRP, CMP ####[facility] Csitybdxcf[address] [place] [address]Dr. Selenaneil Tripathi CBC AUTO DIFFon 06-13-2022 BASO # 0.0 103/ul Normal 0.0-0.1 [facility] Comment on above: Performed By: #### C BC ####[facility] Ulwsqfoqxi[address] [place] [address]Dr. Airam Tripathi Basophils/100 WBC (Bld) 0.2 % Normal 0.2-2.0 [facility] Comment on above: Performed By: #### C BC ####[facility] Tdwyorqin[address] [place], [place] [address]Dr. Airam Tripathi EO # 0.2 103/ul Normal 0.0-0.7 [facility] Comment on above: Performed By: #### C BC ####[facility] [address]wfcmxwyx[address] [place] [address]Dr. Airam Tripathi Eosinophils/100 WBC (Bld) 1.5 % Normal 0.9-7.0 [facility] Comment on above: Performed By: #### C BC ####[facility] Qtoysovicj67[address] [place] [address]Dr. Airam Tripathi Erythrocyte distribution width (RBC) [Ratio] 12.7 % Normal 11.0-15.0 [facility] Comment on above: Performed By: #### C BC ####[facility] Conuiyzzpe[address] [place], [place] [address]Dr. Airam Tripathi Hematocrit (Bld) [Volume fraction] 30.0 % Critically low 36.0-48.0 [facility] Comment on above: Performed By: #### C BC ####[facility] Yif[address]axqjyp[address] [place] [id number]. Airam Triapthi Hemoglobin (Bld) [Mass/Vol] 9.6 g/dL Critically low 12.0-16.0 [facility] Comment on above: Performed By: #### C BC ####[facility] [address]qpchwllq[address] [place] [id number]. Airam Tripathi IG # 0.11 10e3/ul Critically high 0.00-0.03 [facility] Comment on above: Performed By: #### C BC ####[facility] Tyoiuinnhb[address] [place] [address]Dr. Airam Tripathi IG % 1.1 % Critically high 0.0-0.5 [facility] Comment on above: Performed By: #### C BC ####[facility] Xqgftuojvg35[address] [place] [address]Dr. Airam Tripathi LYMPH # 1.5 103/ul Normal 1.2-3.8 [facility] Comment on above: Performed By: #### C BC ####[facility] Ospnkabigd[address] [place], [place] [address]Dr. Airam Tripathi Lymphocytes/100 WBC (Bld) 14.9 % Critically low 20.5-60.0 [facility] Comment on above: Performed By: #### C BC ####[facility] Tpdeovotzw18[address] [place] [address]Dr. Airam Tripathi MANUAL DIFF REQ NO Normal [facility] Comment on above: Performed By: #### C BC ####[facility] Zudedyulqq[address] [place], [place] [address]Dr. Airam Tripathi MCH (RBC) [Entitic mass] 30.0 pg Normal 26.7-34.0 [facility] Comment on above: Performed By: #### C BC ####[facility] Ussxuptdby[address] [place], [place] [address]Dr. Airam Tripathi MCHC (RBC) [Mass/Vol] 32.0 g/dL Normal 29.9-35.2 [facility] Comment on above: Performed By: #### C BC ####[facility] [address]wi[address]ksy[address] [place] [id number]. Airam Tripathi MCV (RBC) [Entitic vol] 93.8 fL Normal 81.0-99.0 [facility] Comment on above: Performed By: #### C BC ####[facility] Fljpvnfiag58[address] [place] [phone]. Airam Tripathi MONO # 0.8 103/ul Normal 0.3-0.8 [facility] Comment on above: Performed By: #### C BC ####[facility] Eobpvtgvmf94[address] [place] [phone]. Airam Tripathi Monocytes/100 WBC (Bld) 7.3 % Normal 1.7-12.0 [facility] Comment on above: Performed By: #### C BC ####[facility] [address]xi[address] [place], [place] [id number]. Airam Tripathi NEUT # 7.8 103/ul Critically high 1.4-6.5 [facility] Comment on above: Performed By: #### C BC ####[facility] Qdigyzktwl[address] [place], [place] [id number]. Airam Tripathi Neutrophils/100 WBC (Bld) 75.0 % Normal 43.0-75.0 [facility] Comment on above: Performed By: #### C BC ####[facility] Xqeuoijxvm[address] [place], [place] [id number]. Airam Tripathi Platelet mean volume (Bld) [Entitic vol] 9.1 fL Critically low 9.5-13.5 [facility] Comment on above: Performed By: #### C BC ####[facility] Jaonmjxcka[address] [place], [place] [phone]. Airam Tripathi PLT 341 103/ul Normal 150-450 [facility] Comment on above: Performed By: #### C BC ####[facility] Ordknmtlsc[address] [place], [place] [phone]. Airam Tripathi RBC 3.20 106/ul Critically low 4.20-5.40 [facility] Comment on above: Performed By: #### C BC ####[facility] Kertweeags71[address] [place], [place] [address]Ko. Airam Tripathi WBC 10.4 103/ul Normal 4.0-11.0 [facility] Comment on above: Performed By: #### C BC ####[facility] Cfgxuzmeau9808 [place], [place] [address]Ai. Airam Tripathi CRPon 06-13-2022 CRP [Mass/Vol] mg/L Normal <=1.0 [facility] Comment on above: Performed By: #### T 4, BNP, MG, TSH, CMADM, CRP, CMP ####[facility] Lxtkugihbk[address] [place], [place] [address]Ih. Airam Tripathi CT HEAD WO CONon 06-13-2022 CT HEAD WO CON Normal [facility] Covid-19 PCR (CVDTBH)on 05-26 SARS-CoV-2 (COVID-19) RNA MIKE+probe Ql (Unsp spec) Not detected Normal NOT DETECTED [facility] Comment on above: Result Comment: When [...] for this test is supported by the [employer] of Health and Human Service's declaration that [...] be used). Performed By: #### C VDTBH ####[facility] Ehetgzdool37[address] [place], [place] [address]Ij. Airam Tripathi LACTATE/LACTIC ACIDon 2021 Lactate [Moles/Vol] 0.5 mmol/L Normal 0.4-1.9 [facility] Comment on above: Performed By: #### L ACT ####[facility] [address]wckmnj[address] [place] [address]Dr. Airam Tripathi MAGNESIUMon 06-13-2022 Magnesium [Mass/Vol] 1.9 mg/dL Normal 1.8-2.4 [facility] Comment on above: Performed By: #### T 4, BNP, MG, TSH, CMADM, CRP, CMP ####[facility] Xhnwbfoqfe[address] [place] [address]Dr. Airam Tripathi PROF 14(COMP METB)on 022 Albumin [Mass/Vol] 3.8 g/dL Normal 3.4-5.0 [facility] Comment on above: Performed By: #### T 4, BNP, MG, TSH, CMADM, CRP, CMP ####[facility] Alyxqeqmgh24[address] [place] [address]Dr. Airam Tripathi Albumin/Globulin [Mass ratio] 1.1 {ratio} Normal [facility] Comment on above: Performed By: #### T 4, BNP, MG, TSH, CMADM, CRP, CMP ####[facility] Kf[address]eqlqazn[address] [place] [address]Dr. Airam Tripathi ALP [Catalytic activity/Vol] 161 U/L Critically high 46-116 [facility] Comment on above: Performed By: #### T 4, BNP, MG, TSH, CMADM, CRP, CMP ####[facility] [address]sv[address]wxn[address] [place] [address]Dr. Airam Tripathi ALT [Catalytic activity/Vol] 21 U/L Normal 14-59 [facility] Comment on above: Performed By: #### T 4, BNP, MG, TSH, CMADM, CRP, CMP ####[facility] Azrtiorizb[address] [place] [address]Dr. Airam Tripathi Anion gap [Moles/Vol] 12.6 mmol/L Normal [facility] Comment on above: Performed By: #### T 4, BNP, MG, TSH, CMADM, CRP, CMP ####[facility] Ieavpkkmdz[address] [place] [address]Dr. Airam Tripathi AST [Catalytic activity/Vol] 30 U/L Normal 15-37 [facility] Comment on above: Performed By: #### T 4, BNP, MG, TSH, CMADM, CRP, CMP ####[facility] Eduxzajohy4[address] [place] [address]Dr. Airam Tripathi Bilirubin [Mass/Vol] 0.3 mg/dL Normal 0.2-1.0 [facility] Comment on above: Performed By: #### T 4, BNP, MG, TSH, CMADM, CRP, CMP ####[facility] Icwohxlivd7[address] [place] [address]Dr. Airam Tripathi Calcium [Mass/Vol] 8.8 mg/dL Normal 8.5-10.1 [facility] Comment on above: Performed By: #### T 4, BNP, MG, TSH, CMADM, CRP, CMP ####[facility] Wkydckhnnu70[address] [place] [address]Dr. Airam Tripathi Chloride [Moles/Vol] 91 mmol/L Critically low 98-107 [facility] Comment on above: Performed By: #### T 4, BNP, MG, TSH, CMADM, CRP, CMP ####[facility] Arlpwazvqc79[address] [place] [address]Dr. Airam Tripathi CO2 [Moles/Vol] 26.9 mmol/L Normal 21.0-32.0 [facility] Comment on above: Performed By: #### T 4, BNP, MG, TSH, CMADM, CRP, CMP ####[facility] [address]ufwdydsad[address] [place] [address]Dr. Airam Tripathi Creatinine [Mass/Vol] 1.83 mg/dL Critically high 0.55-1.02 [facility] Comment on above: Performed By: #### T 4, BNP, MG, TSH, CMADM, CRP, CMP ####[facility] Pegmjmjetb7[address] [place] [address]Dr. Airam Tripathi EGFR-AF ARGENTINE 34 mL/min/1.73m2 Critically low >=60 [facility] Comment on above: Performed By: #### T 4, BNP, MG, TSH, CMADM, CRP, CMP ####[facility] Knuyptlxul49[address] [place] [address]Dr. Airam Tripathi EGFR-NON AF ARGENTINE 28 mL/min/1.73m2 Critically low >=60 [facility] Comment on above: Performed By: #### T 4, BNP, MG, TSH, CMADM, CRP, CMP ####[facility] Klyqcjisdx5[address] [place] [address]Dr. Airam Tripathi Globulin (S) [Mass/Vol] 3.5 g/dL Normal [facility] Comment on above: Performed By: #### T 4, BNP, MG, TSH, CMADM, CRP, CMP ####[facility] Tleidxywlk[address] [place], [place] [address]Dr. Airam Tripathi Glucose [Mass/Vol] 96 mg/dL Normal 74-106 [facility] Comment on above: Performed By: #### T 4, BNP, MG, TSH, CMADM, CRP, CMP ####[facility] Zozemvxlux[address] [place], [place] [address]Dr. Airam Tripathi Potassium [Moles/Vol] 4.5 mmol/L Normal 3.5-5.1 [facility] Comment on above: Performed By: #### T 4, BNP, MG, TSH, CMADM, CRP, CMP ####[facility] Azkuhakied[address] [place] [address]Dr. Airam Tripathi Protein [Mass/Vol] 7.3 g/dL Normal 6.4-8.2 [facility] Comment on above: Performed By: #### T 4, BNP, MG, TSH, CMADM, CRP, CMP ####[facility] Mqtzyxzydb[address] [place] [address]Dr. Airam Tripathi Sodium [Moles/Vol] 126 mmol/L Critically low 136-145 [facility] Comment on above: Performed By: #### T 4, BNP, MG, TSH, CMADM, CRP, CMP ####[facility] Cixnmcbaax[address] [place], [place] [address]Dr. Airam Tripathi Urea nitrogen [Mass/Vol] 34.0 mg/dL Critically high 7.0-18.0 [facility] Comment on above: Performed By: #### T 4, BNP, MG, TSH, CMADM, CRP, CMP ####[facility] Lwtdtinbom[address] [place], [place] [address]Dr. Airam Tripathi Urea nitrogen/Creatinine [Mass ratio] 18.6 mg/mg Normal [facility] Comment on above: Performed By: #### T 4, BNP, MG, TSH, CMADM, CRP, CMP ####[facility] Hdgcligyen[address] [place], [place] [address]Dr. Airam Tripathi Albumin [Mass/Vol] 3.4 g/dL Normal 3.4-5.0 [facility] Comment on above: Performed By: #### C MP ####[facility] Ajlowwvaij[address] [place], [place] [address]Dr. Airam Tripathi Albumin/Globulin [Mass ratio] 1.0 {ratio} Normal [facility] Comment on above: Performed By: #### C MP ####[facility] Auhvrmnrcc[address] [place], [place] [address]Dr. Airam Tripathi ALP [Catalytic activity/Vol] 151 U/L Critically high 46-116 [facility] Comment on above: Performed By: #### C MP ####[facility] Pwuzeynnek[address] [place], [place] [address]Dr. Airam Tripathi ALT [Catalytic activity/Vol] 20 U/L Normal 14-59 [facility] Comment on above: Performed By: #### C MP ####[facility] Tluecjftoy[address] [place], [place] [address]Dr. Airam Tripathi Anion gap [Moles/Vol] 11.7 mmol/L Normal [facility] Comment on above: Performed By: #### C MP ####[facility] Uglnksvpmp[address] [place], [place] [address]Dr. Airam Tripathi AST [Catalytic activity/Vol] 28 U/L Normal 15-37 [facility] Comment on above: Performed By: #### C MP ####[facility] Rnfjrmwqte[address] [place], [place] [address]Dr. Airam Tripathi Bilirubin [Mass/Vol] 0.3 mg/dL Normal 0.2-1.0 [facility] Comment on above: Performed By: #### C MP ####[facility] Vaxjzemsuo[address] [place], [place] [address]Dr. Airam Tripathi Calcium [Mass/Vol] 8.5 mg/dL Normal 8.5-10.1 [facility] Comment on above: Performed By: #### C MP ####[facility] Faepkheffh[address] [place], [place] [address]Dr. Airam Tripathi Chloride [Moles/Vol] 91 mmol/L Critically low 98-107 [facility] Comment on above: Performed By: #### C MP ####[facility] Cobyxyvxhb[address] [place], [place] [address]Dr. Airam Tripathi CO2 [Moles/Vol] 28.3 mmol/L Normal 21.0-32.0 [facility] Comment on above: Performed By: #### C MP ####[facility] Bvcnoiviwh[address] [place], [place] [address]Dr. Airam Tripathi Creatinine [Mass/Vol] 1.68 mg/dL Critically high 0.55-1.02 [facility] Comment on above: Performed By: #### C MP ####[facility] Aefnhbalew[address] [place], [place] [address]Dr. Airam Tripathi EGFR-AF ARGENTINE 38 mL/min/1.73m2 Critically low >=60 [facility] Comment on above: Performed By: #### C MP ####[facility] Rnoumsraxi[address] [place], [place] [address]Dr. Airam Tripathi EGFR-NON AF ARGENTINE 31 mL/min/1.73m2 Critically low >=60 [facility] Comment on above: Performed By: #### C MP ####[facility] Lqurbkzsnw[address] [place], [place] [address]Dr. Airam Tripathi Globulin (S) [Mass/Vol] 3.5 g/dL Normal [facility] Comment on above: Performed By: #### C MP ####[facility] Dtbdhrzuta[address] [place], [place] [address]Dr. Airam Tripathi Glucose [Mass/Vol] 74 mg/dL Normal 74-106 [facility] Comment on above: Performed By: #### C MP ####[facility] Tezgzdzlrj4134 [place] [address]Dr. Airam Tripathi Potassium [Moles/Vol] 4.0 mmol/L Normal 3.5-5.1 [facility] Comment on above: Performed By: #### C MP ####[facility] Fajfmhiahc[address] [place], [place] [address]Dr. Airam Tripathi Protein [Mass/Vol] 6.9 g/dL Normal 6.4-8.2 [facility] Comment on above: Performed By: #### C MP ####[facility] Hyizmmgktq8[address] [place], [place] [address]Dr. Airam Tripathi Sodium [Moles/Vol] 127 mmol/L Critically low 136-145 [facility] Comment on above: Performed By: #### C MP ####[facility] Ehnntashyt[address] [place], [place] [address]Dr. Airam Tripathi Urea nitrogen [Mass/Vol] 29.0 mg/dL Critically high 7.0-18.0 [facility] Comment on above: Performed By: #### C MP ####[facility] Xydpqobfju[address] [place], [place] [address]Dr. Airam Tripathi Urea nitrogen/Creatinine [Mass ratio] 17.3 mg/mg Normal [facility] Comment on above: Performed By: #### C MP ####[facility] Qspwdizpqj[address] [place], [place] [address]Dr. Airam Tripathi T4on 06-13-2022 T4 [Mass/Vol] 6.80 ug/dL Normal 4.80-13.90 [facility] Comment on above: Performed By: #### T 4, BNP, MG, TSH, CMADM, CRP, CMP ####[facility] Kxtrdmtptx[address] [place], [place] [address]Dr. Airam Tripathi TSHon 06-13-2022 TSH 0.101 uIU/mL Critically low 0.358-3.74 0 [facility] Comment on above: Performed By: #### T 4, BNP, MG, TSH, CMADM, CRP, CMP ####[facility] Aohmoeljnr30[address] [place] [id number]. Airam Tripathi OSMOLALITYon 06-08-2022 Osmolality [Osmolality] 272 mosm/kg Critically low 275-295 [facility] Comment on above: Performed By: #### O SMO ####[facility] Xgnaewhghl[address] [place], [place] [address]Dr. Airam Deuce CBC AUTO DIFFon 06-06-2022 BASO # 0.0 103/ul Normal 0.0-0.1 [facility] Comment on above: Performed By: #### C BC ####[facility] Ogupregwtc[address] [place], [place] [address]Dr. Airam Tripathi Basophils/100 WBC (Bld) 0.3 % Normal 0.2-2.0 [facility] Comment on above: Performed By: #### C BC ####[facility] Pogieoclys[address] [place], [place] [address]Dr. Airam Tripathi EO # 0.2 103/ul Normal 0.0-0.7 [facility] Comment on above: Performed By: #### C BC ####[facility] Zkefzmmtmm[address] [place], [place] [address]Dr. Airam Tripathi Eosinophils/100 WBC (Bld) 2.5 % Normal 0.9-7.0 [facility] Comment on above: Performed By: #### C BC ####[facility] Vtobqltdca[address] [place], [place] [address]Dr. Airam Tripathi Erythrocyte distribution width (RBC) [Ratio] 12.9 % Normal 11.0-15.0 [facility] Comment on above: Performed By: #### C BC ####[facility] Itoqkljdxc[address] [place], [place] [address]Dr. Airam Tripathi Hematocrit (Bld) [Volume fraction] 29.8 % Critically low 36.0-48.0 [facility] Comment on above: Performed By: #### C BC ####[facility] Mumwhwuvne[address] [place], [place] [address]Dr. Airam Tripathi Hemoglobin (Bld) [Mass/Vol] 9.7 g/dL Critically low 12.0-16.0 [facility] Comment on above: Performed By: #### C BC ####[facility] Fcgfrfkjet7[address] [place] [address]DrKianna Tripathi IG # 0.03 10e3/ul Normal 0.00-0.03 [facility] Comment on above: Performed By: #### C BC ####[facility] Xwdntwhhae50[address] [place] [address]DrKianna Tripathi IG % 0.3 % Normal 0.0-0.5 [facility] Comment on above: Performed By: #### C BC ####[facility] Jnhslegnzh[address] [place] [address]DrKianna Tripathi LYMPH # 1.3 103/ul Normal 1.2-3.8 [facility] Comment on above: Performed By: #### C BC ####[facility] Ikthnvfmkm7107 [place] [address]DrKianna Tripathi Lymphocytes/100 WBC (Bld) 14.6 % Critically low 20.5-60.0 [facility] Comment on above: Performed By: #### C BC ####[facility] Czoitlrkjl[address] [place] [address]DrKianna Tripathi MANUAL DIFF REQ NO Normal [facility] Comment on above: Performed By: #### C BC ####[facility] Fcevrjdhhn0288 [place] [address]DrKianna Tripathi MCH (RBC) [Entitic mass] 30.6 pg Normal 26.7-34.0 [facility] Comment on above: Performed By: #### C BC ####[facility] Rhziilnjna16[address] [place] [address]DrKianna Tripathi MCHC (RBC) [Mass/Vol] 32.6 g/dL Normal 29.9-35.2 [facility] Comment on above: Performed By: #### C BC ####[facility] Wganwyuoeh19[address] [place] [address]DrKianna Tripathi MCV (RBC) [Entitic vol] 94.0 fL Normal 81.0-99.0 [facility] Comment on above: Performed By: #### C BC ####[facility] Apisnfwwnp[address] [place] [id number]. Airam Tripathi MONO # 0.5 103/ul Normal 0.3-0.8 [facility] Comment on above: Performed By: #### C BC ####[facility] Xkzuoivikt1826 [place] [id number]. Airam Tripathi Monocytes/100 WBC (Bld) 5.7 % Normal 1.7-12.0 [facility] Comment on above: Performed By: #### C BC ####[facility] Rfanzpkvoc7134 [place] [address]Dr. Airam Tripathi NEUT # 6.9 103/ul Critically high 1.4-6.5 [facility] Comment on above: Performed By: #### C BC ####[facility] Ulxvvzbqlt2458 [place] [address]Dr. Airam Tripathi Neutrophils/100 WBC (Bld) 76.6 % Critically high 43.0-75.0 [facility] Comment on above: Performed By: #### C BC ####[facility] Gsnwcwwoqx5939 [place] [address]Dr. Airam Tripathi Platelet mean volume (Bld) [Entitic vol] 9.2 fL Critically low 9.5-13.5 [facility] Comment on above: Performed By: #### C BC ####[facility] Iwcbnymmjt8807 [place] [id number]. Airam Tripathi PLT 271 103/ul Normal 150-450 [facility] Comment on above: Performed By: #### C BC ####[facility] Rvpsoedvpc1621 [place] [id number]. Selenaneil Deuce RBC 3.17 106/ul Critically low 4.20-5.40 [facility] Comment on above: Performed By: #### C BC ####[facility] Kyuqwtponq4633 [place] [id number]. Airam Deuce WBC 9.1 103/ul Normal 4.0-11.0 [facility] Comment on above: Performed By: #### C BC ####[facility] Glbyfjhvat9[address] [place] [address]Dr. Airam Tripathi PROF 14(COMP METB)on 022 Albumin [Mass/Vol] 3.4 g/dL Normal 3.4-5.0 [facility] Comment on above: Performed By: #### C MP ####[facility] Piyhnouubo[address] [place] [address]Dr. Airam Tripathi Albumin/Globulin [Mass ratio] 1.0 {ratio} Normal [facility] Comment on above: Performed By: #### C MP ####[facility] Hgebsaghfl4502 [place] [address]Dr. Airam Tripathi ALP [Catalytic activity/Vol] 156 U/L Critically high 46-116 [facility] Comment on above: Performed By: #### C MP ####[facility] Kmxbzytisy[address] [place], [place] [address]Dr. Airam Tripathi ALT [Catalytic activity/Vol] 18 U/L Normal 14-59 [facility] Comment on above: Performed By: #### C MP ####[facility] Ulyxgvchfv[address] [place], [place] [address]Dr. Airam Tripathi Anion gap [Moles/Vol] 10.8 mmol/L Normal [facility] Comment on above: Performed By: #### C MP ####[facility] Ihkejzhnyq[address] [place], [place] [address]Dr. Airam Tripathi AST [Catalytic activity/Vol] 27 U/L Normal 15-37 [facility] Comment on above: Performed By: #### C MP ####[facility] Kivxfwlwqs404[address] [place], [place] [address]Dr. Airam Tripathi Bilirubin [Mass/Vol] 0.2 mg/dL Normal 0.2-1.0 [facility] Comment on above: Performed By: #### C MP ####[facility] Nbheabfcnv[address] [place], [place] [address]Dr. Airam Tripathi Calcium [Mass/Vol] 8.1 mg/dL Critically low 8.5-10.1 [facility] Comment on above: Performed By: #### C MP ####[facility] Teossijvhw87[address] [place] [address]Dr. Airam Tripathi Chloride [Moles/Vol] 92 mmol/L Critically low 98-107 [facility] Comment on above: Performed By: #### C MP ####[facility] Owllojxlot3525 [place] [address]Dr. Airam Tripathi CO2 [Moles/Vol] 27.4 mmol/L Normal 21.0-32.0 [facility] Comment on above: Performed By: #### C MP ####[facility] Ivlfuwbdhu8387 [place] [address]Dr. Airam Tripathi Creatinine [Mass/Vol] 1.57 mg/dL Critically high 0.55-1.02 [facility] Comment on above: Performed By: #### C MP ####[facility] Agdsdgeizr[address] [place], [place] [address]Dr. Airam Tripathi EGFR-AF ARGENTINE 41 mL/min/1.73m2 Critically low >=60 [facility] Comment on above: Performed By: #### C MP ####[facility] Nihrokyboi[address] [place], [place] [address]Dr. Airam Tripathi EGFR-NON AF ARGENTINE 34 mL/min/1.73m2 Critically low >=60 [facility] Comment on above: Performed By: #### C MP ####[facility] [address] [place] [address]Dr. Airam Tripathi Globulin (S) [Mass/Vol] 3.4 g/dL Normal [facility] Comment on above: Performed By: #### C MP ####[facility] Bximqxdrpi3[address] [place] [address]Dr. Airam Deuce Glucose [Mass/Vol] 82 mg/dL Normal 74-106 [facility] Comment on above: Performed By: #### C MP ####[facility] Pv[address]vehnqb[address] [place] [address]Dr. Airam Deuce Potassium [Moles/Vol] 4.2 mmol/L Normal 3.5-5.1 [facility] Comment on above: Performed By: #### C MP ####[facility] Ogwptxcjzc29[address] [place] [address]Dr. Airam Tripathi Protein [Mass/Vol] 6.8 g/dL Normal 6.4-8.2 [facility] Comment on above: Performed By: #### C MP ####[facility] Orgfeyettf[address] [place], [place] [address]Dr. Airam Deuce Sodium [Moles/Vol] 126 mmol/L Critically low 136-145 [facility] Comment on above: Performed By: #### C MP ####[facility] Vkfelahztg463[address] [place], [place] [address]Dr. Airam Deuce Urea nitrogen [Mass/Vol] 35.0 mg/dL Critically high 7.0-18.0 [facility] Comment on above: Performed By: #### C MP ####[facility] Tkucgyptct664[address] [place], [place] [address]Dr. Airam Tripathi Urea nitrogen/Creatinine [Mass ratio] 22.3 mg/mg Normal [facility] Comment on above: Performed By: #### C MP ####[facility] Phpuzikpar015[address] [place], [place] [address]Dr. Airam Deuce OSMOLALITYon 06-02-2022 Osmolality [Osmolality] 276 mosm/kg Normal 275-295 [facility] Comment on above: Performed By: #### O SMO ####[facility] Luhdkcqpmd[address] [place], [place] [address]Dr. Airam Deuce CBC AUTO DIFFon 06-01-2022 BASO # 0.1 103/ul Normal 0.0-0.1 [facility] Comment on above: Performed By: #### C BC ####[facility] Tyepnnrljv776[address] [place], [place] [address]Dr. Airam Deuce Basophils/100 WBC (Bld) 0.7 % Normal 0.2-2.0 [facility] Comment on above: Performed By: #### C BC ####[facility] Hgddnvpqop0423[address] [place], [place] [address]Dr. Airam Tripathi EO # 0.3 103/ul Normal 0.0-0.7 [facility] Comment on above: Performed By: #### C BC ####[facility] Pjoyjqwgci[address] [place] [address]Dr. Airam Tripathi Eosinophils/100 WBC (Bld) 3.3 % Normal 0.9-7.0 [facility] Comment on above: Performed By: #### C BC ####[facility] Ebxehisesp589[address] [place], [place] [address]Dr. Airam Tripathi Erythrocyte distribution width (RBC) [Ratio] 13.2 % Normal 11.0-15.0 [facility] Comment on above: Performed By: #### C BC ####[facility] Lhjojnrafd65[address] [place], [place] [address]Dr. Airam Tripathi Hematocrit (Bld) [Volume fraction] 32.0 % Critically low 36.0-48.0 [facility] Comment on above: Performed By: #### C BC ####[facility] Jnxtbeyxcv094[address] [place], [place] [address]Dr. Airam Tripathi Hemoglobin (Bld) [Mass/Vol] 10.3 g/dL Critically low 12.0-16.0 [facility] Comment on above: Performed By: #### C BC ####[facility] Arjphxxvie8035[address] [place], [place] [address]Dr. Airam Tripathi IG # 0.05 10e3/ul Critically high 0.00-0.03 [facility] Comment on above: Performed By: #### C BC ####[facility] Rjsyrmonef325[address] [place], [place] [address]Dr. Airam Tripathi IG % 0.7 % Critically high 0.0-0.5 [facility] Comment on above: Performed By: #### C BC ####[facility] Ylqzfkmhhn47[address] [place], [place] [address]DrKianna Tripathi LYMPH # 1.7 103/ul Normal 1.2-3.8 [facility] Comment on above: Performed By: #### C BC ####[facility] Qrnjqgotdt55[address] [place], [place] [address]DrKianna Tripathi Lymphocytes/100 WBC (Bld) 22.6 % Normal 20.5-60.0 [facility] Comment on above: Performed By: #### C BC ####[facility] Izuuxufidl[address] [place], [place] [address]DrKianna Tripathi MANUAL DIFF REQ NO Normal [facility] Comment on above: Performed By: #### C BC ####[facility] Xqoerwutyu2944[address] [place], [place] [address]Dr. Airam Tripathi MCH (RBC) [Entitic mass] 30.8 pg Normal 26.7-34.0 [facility] Comment on above: Performed By: #### C BC ####[facility] Yotklvbgxe639[address] [place], [place] [address]Dr. Airam Tripathi MCHC (RBC) [Mass/Vol] 32.2 g/dL Normal 29.9-35.2 [facility] Comment on above: Performed By: #### C BC ####[facility] Shcgeeyhye797[address] [place], [place] [address]DrKianna Tripathi MCV (RBC) [Entitic vol] 95.8 fL Normal 81.0-99.0 [facility] Comment on above: Performed By: #### C BC ####[facility] Tgjlamxkol68[address] [place], [place] [address]DrKianna Tripathi MONO # 0.6 103/ul Normal 0.3-0.8 [facility] Comment on above: Performed By: #### C BC ####[facility] Swmjtpjknk7613[address] [place], [place] [address]DrKianna Tripathi Monocytes/100 WBC (Bld) 8.6 % Normal 1.7-12.0 [facility] Comment on above: Performed By: #### C BC ####[facility] Ogstwdpnlm286[address] [place], [place] [address]DrKianna Tripathi NEUT # 4.8 103/ul Normal 1.4-6.5 [facility] Comment on above: Performed By: #### C BC ####[facility] Rghtgsrpsb815[address] [place], [place] [address]DrKianna Tripathi Neutrophils/100 WBC (Bld) 64.1 % Normal 43.0-75.0 [facility] Comment on above: Performed By: #### C BC ####[facility] Jpxqsquskt0307 [place] [address]DrKianna Tripathi Platelet mean volume (Bld) [Entitic vol] 10.0 fL Normal 9.5-13.5 [facility] Comment on above: Performed By: #### C BC ####[facility] Jhyxwxpong158[address] [place], [place] [address]DrKianna Tripathi PLT 322 103/ul Normal 150-450 [facility] Comment on above: Performed By: #### C BC ####[facility] Ifmkipdiad375[address] [place], [place] [address]DrKianna Tripathi RBC 3.34 106/ul Critically low 4.20-5.40 [facility] Comment on above: Performed By: #### C BC ####[facility] Szspbgvrtw325[address] [place], [place] [address]DrKianna Tripathi WBC 7.5 103/ul Normal 4.0-11.0 [facility] Comment on above: Performed By: #### C BC ####[facility] Rdhkuzkubq234[address] [place], [place] [address]DrKianna Tripatih PROF 14(COMP METB)on 022 Albumin [Mass/Vol] 3.5 g/dL Normal 3.4-5.0 [facility] Comment on above: Performed By: #### C MP ####[facility] Zjanwiwlly439[address] [place], [place] [address]DrKianna Tripathi Albumin/Globulin [Mass ratio] 1.1 {ratio} Normal [facility] Comment on above: Performed By: #### C MP ####[facility] Wcmuhckvzn50[address] [place], [place] [address]DrKianna Tripathi ALP [Catalytic activity/Vol] 167 U/L Critically high 46-116 [facility] Comment on above: Performed By: #### C MP ####[facility] Otbwjifsli539[address] [place], [place] [address]DrKianna Tripathi ALT [Catalytic activity/Vol] 24 U/L Normal 14-59 [facility] Comment on above: Performed By: #### C MP ####[facility] Fqajmwlxry4[address] [place] [address]Dr. Airam Deuce Anion gap [Moles/Vol] 14.1 mmol/L Normal [facility] Comment on above: Performed By: #### C MP ####[facility] Wbsywdloqf6325[address] [place], [place] [address]Dr. Airam Deuce AST [Catalytic activity/Vol] 27 U/L Normal 15-37 [facility] Comment on above: Performed By: #### C MP ####[facility] Xewfqnywtv60[address] [place], [place] [address]Dr. Airam Tripathi Bilirubin [Mass/Vol] 0.3 mg/dL Normal 0.2-1.0 [facility] Comment on above: Performed By: #### C MP ####[facility] Sxqbxkyvfr700[address] [place], [place] [address]Dr. Airam Tripathi Calcium [Mass/Vol] 8.0 mg/dL Critically low 8.5-10.1 [facility] Comment on above: Performed By: #### C MP ####[facility] Dbmcmnzaeg3395[address] [place], [place] [address]Dr. Airam Tripathi Chloride [Moles/Vol] 96 mmol/L Critically low 98-107 [facility] Comment on above: Performed By: #### C MP ####[facility] Tugnroqkyc0114[address] [place], [place] [address]Dr. Airam Tripathi CO2 [Moles/Vol] 24.6 mmol/L Normal 21.0-32.0 [facility] Comment on above: Performed By: #### C MP ####[facility] Omzxuaevma717[address] [place], [place] [address]Dr. Airam Tripathi Creatinine [Mass/Vol] 1.79 mg/dL Critically high 0.55-1.02 [facility] Comment on above: Performed By: #### C MP ####[facility] Acgkopbmay617[address] [place], [place] [address]Dr. Airam Tripathi EGFR-AF ARGENTINE 35 mL/min/1.73m2 Critically low >=60 [facility] Comment on above: Performed By: #### C MP ####[facility] Mxfdtgmlnp020[address] [place] [address]Dr. Airam Tripathi EGFR-NON AF ARGENTINE 29 mL/min/1.73m2 Critically low >=60 [facility] Comment on above: Performed By: #### C MP ####[facility] Ttzaybsggs0343 [place] [address]Dr. Airam Tripathi Globulin (S) [Mass/Vol] 3.3 g/dL Normal [facility] Comment on above: Performed By: #### C MP ####[facility] Jjhglvkccg326[address] [place], [place] [address]Dr. Airam Tripathi Glucose [Mass/Vol] 58 mg/dL Critically low 74-106 [facility] Comment on above: Performed By: #### C MP ####[facility] Musvugccmf015[address] [place], [place] [address]Dr. Airam Tripathi Potassium [Moles/Vol] 4.7 mmol/L Normal 3.5-5.1 [facility] Comment on above: Performed By: #### C MP ####[facility] Stdyqbximy535[address] [place], [place] [address]Dr. Airam Tripathi Protein [Mass/Vol] 6.8 g/dL Normal 6.4-8.2 [facility] Comment on above: Performed By: #### C MP ####[facility] Xbndixwrcv2724[address] [place], [place] [address]Dr. Airam Tripathi Sodium [Moles/Vol] 130 mmol/L Critically low 136-145 [facility] Comment on above: Performed By: #### C MP ####[facility] Bbuztlfmcp6537[address] [place], [place] [address]Dr. Airam Tripathi Urea nitrogen [Mass/Vol] 30.0 mg/dL Critically high 7.0-18.0 [facility] Comment on above: Performed By: #### C MP ####[facility] Hvtaxsfjpj976[address] [place], [place] [address]Dr. Airam Tripathi Urea nitrogen/Creatinine [Mass ratio] 16.8 mg/mg Normal [facility] Comment on above: Performed By: #### C MP ####[facility] Ijnqnuccow857[address] [place], [place] [address]Dr. Airam Tripathi OSMOLALITYon 05-28-2022 Osmolality [Osmolality] 275 mosm/kg Normal 275-295 [facility] Comment on above: Performed By: #### O SMO ####[facility] Bfokrjnsar638[address] [place], [place] [address]Dr. Airam Tripathi CBC AUTO DIFFon 05-26-2022 BASO # 0.0 103/ul Normal 0.0-0.1 [facility] Comment on above: Performed By: #### C BC ####[facility] Chqekxmdkj425[address] [place], [place] [address]Dr. Airam Tripathi Basophils/100 WBC (Bld) 0.4 % Normal 0.2-2.0 [facility] Comment on above: Performed By: #### C BC ####[facility] Tiifhspjgb8987[address] [place], [place] [address]DrKianna Tripathi EO # 0.3 103/ul Normal 0.0-0.7 [facility] Comment on above: Performed By: #### C BC ####[facility] Fabmzwpllh294[address] [place], [place] [address]Dr. Airam Tripathi Eosinophils/100 WBC (Bld) 3.2 % Normal 0.9-7.0 [facility] Comment on above: Performed By: #### C BC ####[facility] Dihhqerxak2514[address] [place], [place] [address]Dr. Airam Tripathi Erythrocyte distribution width (RBC) [Ratio] 13.0 % Normal 11.0-15.0 [facility] Comment on above: Performed By: #### C BC ####[facility] Cfwwxeyfog969[address] [place], [place] [address]Dr. Airam Tripathi Hematocrit (Bld) [Volume fraction] 30.4 % Critically low 36.0-48.0 [facility] Comment on above: Performed By: #### C BC ####[facility] Clmuemqtum1322[address] [place], [place] [address]Dr. Airam Tripathi Hemoglobin (Bld) [Mass/Vol] 9.6 g/dL Critically low 12.0-16.0 [facility] Comment on above: Performed By: #### C BC ####[facility] Zyytzdbefe18[address] [place] [address]Dr. Airam Tripathi IG # 0.06 10e3/ul Critically high 0.00-0.03 [facility] Comment on above: Performed By: #### C BC ####[facility] Mgdwsyhuup1765 [place] [address]Dr. Airam Tripathi IG % 0.7 % Critically high 0.0-0.5 [facility] Comment on above: Performed By: #### C BC ####[facility] Mwqcmagpmm[address] [place], [place] [address]DrKianna Tripathi LYMPH # 1.9 103/ul Normal 1.2-3.8 [facility] Comment on above: Performed By: #### C BC ####[facility] Wetwkxmuun3401[address] [place], [place] [address]Dr. Airam Tripathi Lymphocytes/100 WBC (Bld) 20.6 % Normal 20.5-60.0 [facility] Comment on above: Performed By: #### C BC ####[facility] Zggiigjpyz8537[address] [place], [place] [address]Dr. Airam Tripathi MANUAL DIFF REQ NO Normal [facility] Comment on above: Performed By: #### C BC ####[facility] Hwmqlgbyzw1790[address] [place], [place] [address]DrKianna Tripathi MCH (RBC) [Entitic mass] 30.1 pg Normal 26.7-34.0 [facility] Comment on above: Performed By: #### C BC ####[facility] Ddtmkpagta3340[address] [place], [place] [address]DrKianna Tripathi MCHC (RBC) [Mass/Vol] 31.6 g/dL Normal 29.9-35.2 [facility] Comment on above: Performed By: #### C BC ####[facility] Cnnnqhbkdl9732[address] [place], [place] [address]Dr. Airam Tripathi MCV (RBC) [Entitic vol] 95.3 fL Normal 81.0-99.0 [facility] Comment on above: Performed By: #### C BC ####[facility] Gazyuhkbjn1748[address] [place], [place] [address]DrKianna Tripathi MONO # 0.6 103/ul Normal 0.3-0.8 [facility] Comment on above: Performed By: #### C BC ####[facility] Hkghsgjkpp100[address] [place], [place] [address]Dr. Airam Tripathi Monocytes/100 WBC (Bld) 6.9 % Normal 1.7-12.0 [facility] Comment on above: Performed By: #### C BC ####[facility] Qipsxazmwd0935[address] [place], [place] [address]DrKianna Airam Tripathi NEUT # 6.1 103/ul Normal 1.4-6.5 [facility] Comment on above: Performed By: #### C BC ####[facility] Rpgenopwst629[address] [place], [place] [address]Dr. Airam Tripathi Neutrophils/100 WBC (Bld) 68.2 % Normal 43.0-75.0 [facility] Comment on above: Performed By: #### C BC ####[facility] Qgkuufuhso542[address] [place], [place] [address]DrKianna Airam Tripathi Platelet mean volume (Bld) [Entitic vol] 9.7 fL Normal 9.5-13.5 [facility] Comment on above: Performed By: #### C BC ####[facility] Fktspgdstk3236[address] [place], [place] [address]Dr. Airam Deuce PLT 317 103/ul Normal 150-450 [facility] Comment on above: Performed By: #### C BC ####[facility] Fzwabfbwvv2577[address] [place], [place] [address]DrKianna Airam Deuce RBC 3.19 106/ul Critically low 4.20-5.40 [facility] Comment on above: Performed By: #### C BC ####[facility] Etwcbezmlp627[address] [place], [place] [address]Dr. Airam Tripathi WBC 9.0 103/ul Normal 4.0-11.0 [facility] Comment on above: Performed By: #### C BC ####[facility] Qtsqnjlzbi407[address] [place], [place] [address]Dr. Airam Tripathi PROF 14(COMP METB)on 022 Albumin [Mass/Vol] 3.4 g/dL Normal 3.4-5.0 [facility] Comment on above: Performed By: #### C MP ####[facility] Mqmxlzshua477[address] [place], [place] [address]Dr. Airam Tripathi Albumin/Globulin [Mass ratio] 1.0 {ratio} Normal [facility] Comment on above: Performed By: #### C MP ####[facility] Frtpzhpemk116[address] [place], [place] [address]Dr. Airam Tripathi ALP [Catalytic activity/Vol] 153 U/L Critically high 46-116 [facility] Comment on above: Performed By: #### C MP ####[facility] Adacbaleqx33[address] [place], [place] [address]Dr. Airam Tripathi ALT [Catalytic activity/Vol] 21 U/L Normal 14-59 [facility] Comment on above: Performed By: #### C MP ####[facility] Rhixwptyic413[address] [place], [place] [address]Dr. Airam Tripathi Anion gap [Moles/Vol] 13.6 mmol/L Normal [facility] Comment on above: Performed By: #### C MP ####[facility] Exolskcfnf0838[address] [place], [place] [address]Dr. Airam Tripathi AST [Catalytic activity/Vol] 23 U/L Normal 15-37 [facility] Comment on above: Performed By: #### C MP ####[facility] Zmorfwcmfm566[address] [place], [place] [address]Dr. Airam Tripathi Bilirubin [Mass/Vol] 0.2 mg/dL Normal 0.2-1.0 [facility] Comment on above: Performed By: #### C MP ####[facility] Hxkluqjphl2287[address] [place], [place] [address]Dr. Airam Tripathi Calcium [Mass/Vol] 8.4 mg/dL Critically low 8.5-10.1 [facility] Comment on above: Performed By: #### C MP ####[facility] Brwbmtcmtc[address] [place], [place] [address]Dr. Airam Tripathi Chloride [Moles/Vol] 97 mmol/L Critically low 98-107 [facility] Comment on above: Performed By: #### C MP ####[facility] Qaczavjcfs297[address] [place], [place] [address]Dr. Airam Tripathi CO2 [Moles/Vol] 25.2 mmol/L Normal 21.0-32.0 [facility] Comment on above: Performed By: #### C MP ####[facility] Djcsggfeie990[address] [place], [place] [address]Dr. Airam Tripathi Creatinine [Mass/Vol] 1.58 mg/dL Critically high 0.55-1.02 [facility] Comment on above: Performed By: #### C MP ####[facility] Yhqalcnfyh832[address] [place], [place] [address]Dr. Airam Tripathi EGFR-AF ARGENTINE 40 mL/min/1.73m2 Critically low >=60 [facility] Comment on above: Performed By: #### C MP ####[facility] Epzxxnzvmd699[address] [place], [place] [address]Dr. Airam Tripathi EGFR-NON AF ARGENTINE 33 mL/min/1.73m2 Critically low >=60 [facility] Comment on above: Performed By: #### C MP ####[facility] Ktcgdfyccf649[address] [place], [place] [address]Dr. Airam Tripathi Globulin (S) [Mass/Vol] 3.4 g/dL Normal [facility] Comment on above: Performed By: #### C MP ####[facility] Wrkybqoezo679[address] [place], [place] [address]Dr. Airam Tripathi Glucose [Mass/Vol] 74 mg/dL Normal 74-106 [facility] Comment on above: Performed By: #### C MP ####[facility] Vrqfvfrauc675[address] [place], [place] [address]Dr. Airam Tripathi Potassium [Moles/Vol] 4.8 mmol/L Normal 3.5-5.1 [facility] Comment on above: Performed By: #### C MP ####[facility] Fefgzmsipy9424[address] [place], [place] [address]Dr. Airam Deuce Protein [Mass/Vol] 6.8 g/dL Normal 6.4-8.2 [facility] Comment on above: Performed By: #### C MP ####[facility] Tfazxvlgss350[address] [place], [place] [address]Dr. Airam Deuce Sodium [Moles/Vol] 131 mmol/L Critically low 136-145 [facility] Comment on above: Performed By: #### C MP ####[facility] Aqvoigtbsj2836[address] [place], [place] [address]Dr. Selenaneil Deuce Urea nitrogen [Mass/Vol] 31.0 mg/dL Critically high 7.0-18.0 [facility] Comment on above: Performed By: #### C MP ####[facility] Gioqgbbbhp33[address] [place], [place] [address]Dr. Airam Tripathi Urea nitrogen/Creatinine [Mass ratio] 19.6 mg/mg Normal [facility] Comment on above: Performed By: #### C MP ####[facility] Lorbtdxqai[address] [place], [place] [address]DrKianna Airam Deuce OSMOLALITYon 05-19-2022 Osmolality [Osmolality] 281 mosm/kg Normal 275-295 [facility] Comment on above: Performed By: #### O SMO ####[facility] Lhfoixqaia5633[address] [place], [place] [address]DrKianna Airam Deuce CBC AUTO DIFFon 05-17-2022 BASO # 0.1 103/ul Normal 0.0-0.1 [facility] Comment on above: Performed By: #### C BC ####[facility] Ntnzizhvpz367[address] [place], [place] [address]Dr. Airam Deuce Basophils/100 WBC (Bld) 0.6 % Normal 0.2-2.0 [facility] Comment on above: Performed By: #### C BC ####[facility] Jaodekzzqg5715[address] [place], [place] [address]Dr. Airam Tripathi EO # 0.2 103/ul Normal 0.0-0.7 [facility] Comment on above: Performed By: #### C BC ####[facility] Miafrqrvkz[address] [place] [address]Dr. Airam Tripathi Eosinophils/100 WBC (Bld) 1.9 % Normal 0.9-7.0 [facility] Comment on above: Performed By: #### C BC ####[facility] Wljqbqwqva40[address] [place] [address]Dr. Airam Tripathi Erythrocyte distribution width (RBC) [Ratio] 12.9 % Normal 11.0-15.0 [facility] Comment on above: Performed By: #### C BC ####[facility] Drrdeneshq4923[address] [place], [place] [address]Dr. Airam Tripathi Hematocrit (Bld) [Volume fraction] 32.1 % Critically low 36.0-48.0 [facility] Comment on above: Performed By: #### C BC ####[facility] Nbegjlxurx2801[address] [place], [place] [address]Dr. Airam Tripathi Hemoglobin (Bld) [Mass/Vol] 9.9 g/dL Critically low 12.0-16.0 [facility] Comment on above: Performed By: #### C BC ####[facility] Hsnpfgplwz7710[address] [place], [place] [address]Dr. Airam Tripathi IG # 0.05 10e3/ul Critically high 0.00-0.03 [facility] Comment on above: Performed By: #### C BC ####[facility] Lzwyrgqtuz[address] [place], [place] [address]Dr. Airam Tripathi IG % 0.6 % Critically high 0.0-0.5 [facility] Comment on above: Performed By: #### C BC ####[facility] Tihnjclhvp877[address] [place], [place] [address]Dr. Airam Tripathi LYMPH # 1.3 103/ul Normal 1.2-3.8 [facility] Comment on above: Performed By: #### C BC ####[facility] Kpxgfuocti[address] [place] [address]Dr. Airam Deuce Lymphocytes/100 WBC (Bld) 15.2 % Critically low 20.5-60.0 [facility] Comment on above: Performed By: #### C BC ####[facility] Zamxpvlhyb[address] [place] [address]Dr. Selenaneil Tripathi MANUAL DIFF REQ NO Normal [facility] Comment on above: Performed By: #### C BC ####[facility] Iexxvxdrvm28[address] [place] [address]Dr. Airam Deuce MCH (RBC) [Entitic mass] 30.0 pg Normal 26.7-34.0 [facility] Comment on above: Performed By: #### C BC ####[facility] Zjhwfsbfob[address] [place], [place] [address]Dr. Selenaneil Tripathi MCHC (RBC) [Mass/Vol] 30.8 g/dL Normal 29.9-35.2 [facility] Comment on above: Performed By: #### C BC ####[facility] Sqmojgzsml275[address] [place], [place] [address]Dr. Selenaneil Tripathi MCV (RBC) [Entitic vol] 97.3 fL Normal 81.0-99.0 [facility] Comment on above: Performed By: #### C BC ####[facility] Xhnjaixltu405[address] [place], [place] [address]Dr. Airam Tripathi MONO # 0.5 103/ul Normal 0.3-0.8 [facility] Comment on above: Performed By: #### C BC ####[facility] Dtvqaphjhc23[address] [place], [place] [address]Dr. Airam Tripathi Monocytes/100 WBC (Bld) 5.4 % Normal 1.7-12.0 [facility] Comment on above: Performed By: #### C BC ####[facility] Vabgxypxrs[address] [place], [place] [address]Dr. Airam Tripathi NEUT # 6.5 103/ul Normal 1.4-6.5 [facility] Comment on above: Performed By: #### C BC ####[facility] [address]iaxwjvdmk[address] [place], [place] [address]Dr. Airam Tripathi Neutrophils/100 WBC (Bld) 76.3 % Critically high 43.0-75.0 [facility] Comment on above: Performed By: #### C BC ####[facility] B[address]vtzitmi4[address] [place] [address]Dr. Airam Tripathi Platelet mean volume (Bld) [Entitic vol] 10.1 fL Normal 9.5-13.5 [facility] Comment on above: Performed By: #### C BC ####[facility] O[address]alpktji[address] [place] [address]Dr. Airam Tripathi PLT 284 103/ul Normal 150-450 [facility] Comment on above: Performed By: #### C BC ####[facility] Lvadbswkzn214[address] [place], [place] [address]Dr. Airam Tripathi RBC 3.30 106/ul Critically low 4.20-5.40 [facility] Comment on above: Performed By: #### C BC ####[facility] Thptpzikbr5712[address] [place], [place] [address]Dr. Airam Tripathi WBC 8.5 103/ul Normal 4.0-11.0 [facility] Comment on above: Performed By: #### C BC ####[facility] Leogbryhty69[address] [place], [place] [address]Dr. Airam Tripathi PROF 14(COMP METB)on 022 Albumin [Mass/Vol] 3.1 g/dL Critically low 3.4-5.0 [facility] Comment on above: Performed By: #### C MP ####[facility] [address]lf[address]frh[address] [place] [address]Dr. Airam Tripathi Albumin/Globulin [Mass ratio] 0.9 {ratio} Normal [facility] Comment on above: Performed By: #### C MP ####[facility] Whfblcmbee[address] [place], [place] [address]Dr. Airam Tripathi ALP [Catalytic activity/Vol] 162 U/L Critically high 46-116 [facility] Comment on above: Performed By: #### C MP ####[facility] Ibztdncqik89[address] [place] [address]Dr. Airam Tripathi ALT [Catalytic activity/Vol] 22 U/L Normal 14-59 [facility] Comment on above: Performed By: #### C MP ####[facility] Jzufpcsloa8[address] [place], [place] [address]Dr. Airam Tripathi Anion gap [Moles/Vol] 9.4 mmol/L Normal [facility] Comment on above: Performed By: #### C MP ####[facility] Nxjmcbibcc2718[address] [place], [place] [address]Dr. Aiarm Tripathi AST [Catalytic activity/Vol] 26 U/L Normal 15-37 [facility] Comment on above: Performed By: #### C MP ####[facility] Gpdocofwwx423[address] [place], [place] [address]Dr. Airam Tripathi Bilirubin [Mass/Vol] 0.2 mg/dL Normal 0.2-1.0 [facility] Comment on above: Performed By: #### C MP ####[facility] Cnkolhjscx147[address] [place], [place] [address]Dr. Airam Tripathi Calcium [Mass/Vol] 8.2 mg/dL Critically low 8.5-10.1 [facility] Comment on above: Performed By: #### C MP ####[facility] Phgajgfoxr9[address] [place], [place] [address]Dr. Airam Tripathi Chloride [Moles/Vol] 103 mmol/L Normal 98-107 [facility] Comment on above: Performed By: #### C MP ####[facility] Xoozelgrbs126[address] [place], [place] [address]Dr. Airam Tripathi CO2 [Moles/Vol] 24.8 mmol/L Normal 21.0-32.0 [facility] Comment on above: Performed By: #### C MP ####[facility] Apeozsvlja218[address] [place], [place] [address]Dr. Airam Tripathi Creatinine [Mass/Vol] 1.19 mg/dL Critically high 0.55-1.02 [facility] Comment on above: Performed By: #### C MP ####[facility] Hmycoeqjuk30[address] [place], [place] [address]Dr. Airam Deuce EGFR-AF ARGENTINE 56 mL/min/1.73m2 Critically low >=60 [facility] Comment on above: Performed By: #### C MP ####[facility] Kghvlchcxy38[address] [place] [address]Dr. Airam Tripathi EGFR-NON AF ARGENTINE 46 mL/min/1.73m2 Critically low >=60 [facility] Comment on above: Performed By: #### C MP ####[facility] Qozlzgtolm1640 [place] [address]Dr. Airam Deuce Globulin (S) [Mass/Vol] 3.6 g/dL Normal [facility] Comment on above: Performed By: #### C MP ####[facility] Pquryqqpbd5[address] [place] [address]Dr. Selenaneil Deuce Glucose [Mass/Vol] 75 mg/dL Normal 74-106 [facility] Comment on above: Performed By: #### C MP ####[facility] Avnektbrow5093 [place] [address]Dr. Airam Deuce Potassium [Moles/Vol] 5.2 mmol/L Critically high 3.5-5.1 [facility] Comment on above: Performed By: #### C MP ####[facility] Vlmeqovyoj8512 [place] [address]Dr. Airam Deuce Protein [Mass/Vol] 6.7 g/dL Normal 6.4-8.2 [facility] Comment on above: Performed By: #### C MP ####[facility] Dsuzkljebv6820 [place] [address]Dr. Airam Deuce Sodium [Moles/Vol] 132 mmol/L Critically low 136-145 [facility] Comment on above: Performed By: #### C MP ####[facility] Yybphpiavj0189 [place] [address]Dr. Airam Deuce Urea nitrogen [Mass/Vol] 28.0 mg/dL Critically high 7.0-18.0 [facility] Comment on above: Performed By: #### C MP ####[facility] Vayicgupfb3668 [place] [address]Dr. Airam Tripathi Urea nitrogen/Creatinine [Mass ratio] 23.5 mg/mg Normal [facility] Comment on above: Performed By: #### C MP ####[facility] Kbrmmusbhm9306 [place] [address]Dr. Airam Tripathi OSMOLALITYon 05-16-2022 Osmolality [Osmolality] 281 mosm/kg Normal 275-295 [facility] Comment on above: Performed By: #### O SMO ####[facility] Ylewralurw5[address] [place] [address]Dr. Airam Tripathi CBC AUTO DIFFon 05-13-2022 BASO # 0.1 103/ul Normal 0.0-0.1 [facility] Comment on above: Performed By: #### C BC ####[facility] Byxdhojery1463 [place] [address]Dr. Airam Tripathi Basophils/100 WBC (Bld) 0.5 % Normal 0.2-2.0 [facility] Comment on above: Performed By: #### C BC ####[facility] Lgviylkigu5624 [place] [address]Dr. Airam Tripathi EO # 0.2 103/ul Normal 0.0-0.7 [facility] Comment on above: Performed By: #### C BC ####[facility] Cfpjxqobop4465 [place] [address]Dr. Airam Tripathi Eosinophils/100 WBC (Bld) 2.1 % Normal 0.9-7.0 [facility] Comment on above: Performed By: #### C BC ####[facility] Vnctrwlxit2453 [place] [address]Dr. Airam Tripathi Erythrocyte distribution width (RBC) [Ratio] 12.9 % Normal 11.0-15.0 [facility] Comment on above: Performed By: #### C BC ####[facility] Qgwszsumru0885 [place] [address]Dr. Airam Tripathi Hematocrit (Bld) [Volume fraction] 31.9 % Critically low 36.0-48.0 [facility] Comment on above: Performed By: #### C BC ####[facility] Nkkwvcbwpy1322 [place] [id number]. Airam Tripathi Hemoglobin (Bld) [Mass/Vol] 9.7 g/dL Critically low 12.0-16.0 [facility] Comment on above: Performed By: #### C BC ####[facility] Zeobzuzmaf9218 [place] [phone]. Airam Tripathi IG # 0.06 10e3/ul Critically high 0.00-0.03 [facility] Comment on above: Performed By: #### C BC ####[facility] Ktmtgqanyy5494 [place] [phone]. Airam Tripathi IG % 0.7 % Critically high 0.0-0.5 [facility] Comment on above: Performed By: #### C BC ####[facility] Hezkjzzzst1788 [place] [address]Dr. Airam Tripathi LYMPH # 1.9 103/ul Normal 1.2-3.8 [facility] Comment on above: Performed By: #### C BC ####[facility] Xwhtyfrncq6068 [place] [address]Dr. Airam Tripathi Lymphocytes/100 WBC (Bld) 21.1 % Normal 20.5-60.0 [facility] Comment on above: Performed By: #### C BC ####[facility] Nkvelyfsjx4664 [place] [address]Dr. Airam Tripathi MANUAL DIFF REQ NO Normal [facility] Comment on above: Performed By: #### C BC ####[facility] Dfycpizmhi9[address] [place], [place] [address]Dr. Airam Tripathi MCH (RBC) [Entitic mass] 29.7 pg Normal 26.7-34.0 [facility] Comment on above: Performed By: #### C BC ####[facility] Smprykqyil265[address] [place], [place] [address]Dr. Airam Tripathi MCHC (RBC) [Mass/Vol] 30.4 g/dL Normal 29.9-35.2 [facility] Comment on above: Performed By: #### C BC ####[facility] Ouqbaqoslm8335 [place] [phone]. Airam Tripathi MCV (RBC) [Entitic vol] 97.6 fL Normal 81.0-99.0 [facility] Comment on above: Performed By: #### C BC ####[facility] Rrqonqpjjo9690 [place] [phone]. Airam Tripathi MONO # 0.6 103/ul Normal 0.3-0.8 [facility] Comment on above: Performed By: #### C BC ####[facility] Powyvxdqps3490 [place] [phone]. Airam Tripathi Monocytes/100 WBC (Bld) 6.8 % Normal 1.7-12.0 [facility] Comment on above: Performed By: #### C BC ####[facility] Bdjakdbzno3861 [place] [phone]. Airam Tripathi NEUT # 6.3 103/ul Normal 1.4-6.5 [facility] Comment on above: Performed By: #### C BC ####[facility] Jfynxbsijh[address] [place], [place] [id number]. Airam Tripathi Neutrophils/100 WBC (Bld) 68.8 % Normal 43.0-75.0 [facility] Comment on above: Performed By: #### C BC ####[facility] Mtzoqinvcr9005 [place] [phone]. Airam Tripathi Platelet mean volume (Bld) [Entitic vol] 9.6 fL Normal 9.5-13.5 [facility] Comment on above: Performed By: #### C BC ####[facility] Ghybsadgfl8908 [place] [phone]. Airam Tripathi PLT 295 103/ul Normal 150-450 [facility] Comment on above: Performed By: #### C BC ####[facility] Kvwmtwjqpe9995 [place] [phone]. Airam Deuce RBC 3.27 106/ul Critically low 4.20-5.40 [facility] Comment on above: Performed By: #### C BC ####[facility] Imeprrpmxf2066 [place] [address]Dr. Airam Tripathi WBC 9.1 103/ul Normal 4.0-11.0 [facility] Comment on above: Performed By: #### C BC ####[facility] Jqdbvtcphm16[address] [place], [place] [address]Dr. Airam Tripathi PROF 14(COMP METB)on 05-13-2 022 Albumin [Mass/Vol] 3.3 g/dL Critically low 3.4-5.0 [facility] Comment on above: Performed By: #### C MP ####[facility] Sdnoxsytea9685[address] [place], [place] [address]Dr. Airam Tripathi Albumin/Globulin [Mass ratio] 1.0 {ratio} Normal [facility] Comment on above: Performed By: #### C MP ####[facility] Cscamidina780[address] [place], [place] [address]Dr. Airam Tripathi ALP [Catalytic activity/Vol] 152 U/L Critically high 46-116 [facility] Comment on above: Performed By: #### C MP ####[facility] Ykbplgvsms246[address] [place], [place] [address]Dr. Airam Tripathi ALT [Catalytic activity/Vol] 23 U/L Normal 14-59 [facility] Comment on above: Performed By: #### C MP ####[facility] Byshaghoeq4436[address] [place], [place] [address]Dr. Airam Tripathi Anion gap [Moles/Vol] 12.0 mmol/L Normal [facility] Comment on above: Performed By: #### C MP ####[facility] Gzadtnxypw3355[address] [place], [place] [address]Dr. Airam Tripathi AST [Catalytic activity/Vol] 25 U/L Normal 15-37 [facility] Comment on above: Performed By: #### C MP ####[facility] Nmdajnqprj7923[address] [place], [place] [address]Dr. Airam Tripathi Bilirubin [Mass/Vol] 0.2 mg/dL Normal 0.2-1.0 [facility] Comment on above: Performed By: #### C MP ####[facility] Kcmyhlshpt2103 [place] [address]Dr. Airam Tripathi Calcium [Mass/Vol] 8.2 mg/dL Critically low 8.5-10.1 [facility] Comment on above: Performed By: #### C MP ####[facility] Ogpokxnanz6357 [place] [address]Dr. Airam Tripathi Chloride [Moles/Vol] 100 mmol/L Normal 98-107 [facility] Comment on above: Performed By: #### C MP ####[facility] Fqlqiihyap5919 [place] [address]Dr. Airam Tripathi CO2 [Moles/Vol] 24.8 mmol/L Normal 21.0-32.0 [facility] Comment on above: Performed By: #### C MP ####[facility] Xdzdgctkul869[address] [place], [place] [address]Dr. Airam Tripathi Creatinine [Mass/Vol] 1.46 mg/dL Critically high 0.55-1.02 [facility] Comment on above: Performed By: #### C MP ####[facility] Dpvlitzsaa615[address] [place], [place] [address]Dr. Airam Tripathi EGFR-AF ARGENTINE 44 mL/min/1.73m2 Critically low >=60 [facility] Comment on above: Performed By: #### C MP ####[facility] Pjzmgpwnjc0167[address] [place], [place] [address]Dr. Airam Tripathi EGFR-NON AF ARGENTINE 37 mL/min/1.73m2 Critically low >=60 [facility] Comment on above: Performed By: #### C MP ####[facility] Oydjmertym7638[address] [place], [place] [address]Dr. Airam Tripathi Globulin (S) [Mass/Vol] 3.3 g/dL Normal [facility] Comment on above: Performed By: #### C MP ####[facility] Ltxdocpckz8675[address] [place], [place] [address]Dr. Airam Tripathi Glucose [Mass/Vol] 86 mg/dL Normal 74-106 [facility] Comment on above: Performed By: #### C MP ####[facility] Kmmxlzbyox513[address] [place], [place] [id number]. Airam Deuce Potassium [Moles/Vol] 4.8 mmol/L Normal 3.5-5.1 [facility] Comment on above: Performed By: #### C MP ####[facility] Heeptwmquv5060 [place] [address]Dr. Airam Deuce Protein [Mass/Vol] 6.6 g/dL Normal 6.4-8.2 [facility] Comment on above: Performed By: #### C MP ####[facility] Wwvfokvmrf7312[address] [place], [place] [address]Dr. Airam Deuce Sodium [Moles/Vol] 132 mmol/L Critically low 136-145 [facility] Comment on above: Performed By: #### C MP ####[facility] Jffsjvjwhe747[address] [place], [place] [address]Dr. Selenaneil Tripathi Urea nitrogen [Mass/Vol] 34.0 mg/dL Critically high 7.0-18.0 [facility] Comment on above: Performed By: #### C MP ####[facility] Hzcyixgiia818393 [address] [place], [place] [address]Dr. Airam Deuce Urea nitrogen/Creatinine [Mass ratio] 23.3 mg/mg Normal [facility] Comment on above: Performed By: #### C MP ####[facility] Zqoofypegh638[address] [place], [place] [address]Dr. Airam Deuce OSMOLALITYon 05-06-2022 Osmolality [Osmolality] 284 mosm/kg Normal 275-295 [facility] Comment on above: Performed By: #### O SMO ####[facility] Ygdtcqldvs8965[address] [place], [place] [address]Dr. Airam Deuce XR LSPINE MIN 4 VIEWSon 11-0 XR LSPINE MIN 4 VIEWS Normal [facility] CBC AUTO DIFFon 05-03-2022 BASO # 0.1 103/ul Normal 0.0-0.1 [facility] Comment on above: Performed By: #### C BC ####[facility] Bshvgduosm829[address] [place], [place] [address]Dr. Selenaneil Tripathi Basophils/100 WBC (Bld) 0.6 % Normal 0.2-2.0 [facility] Comment on above: Performed By: #### C BC ####[facility] Xlkeagkuak997[address] [place], [place] [address]Dr. Airam Tripathi EO # 0.3 103/ul Normal 0.0-0.7 [facility] Comment on above: Performed By: #### C BC ####[facility] Rbipnrsewb530[address] [place], [place] [address]Dr. Airam Tripathi Eosinophils/100 WBC (Bld) 4.2 % Normal 0.9-7.0 [facility] Comment on above: Performed By: #### C BC ####[facility] Upgdyqxzgi8280[address] [place], [place] [address]Dr. Airam Tripathi Erythrocyte distribution width (RBC) [Ratio] 13.4 % Normal 11.0-15.0 [facility] Comment on above: Performed By: #### C BC ####[facility] Edapmxyrmw809[address] [place], [place] [address]Dr. Airam Tripathi Hematocrit (Bld) [Volume fraction] 30.7 % Critically low 36.0-48.0 [facility] Comment on above: Performed By: #### C BC ####[facility] Hdyhivmekq4795[address] [place], [place] [address]Dr. Airam Tripathi Hemoglobin (Bld) [Mass/Vol] 9.6 g/dL Critically low 12.0-16.0 [facility] Comment on above: Performed By: #### C BC ####[facility] Dwmfdwwhtf0710[address] [place], [place] [address]Dr. Airam Tripathi IG # 0.05 10e3/ul Critically high 0.00-0.03 [facility] Comment on above: Performed By: #### C BC ####[facility] Vbidbljkhi213[address] [place], [place] [address]Dr. Airam Tripathi IG % 0.6 % Critically high 0.0-0.5 [facility] Comment on above: Performed By: #### C BC ####[facility] Ogbntbmqgu9067[address] [place], [place] [address]DrKianna Tripathi LYMPH # 1.9 103/ul Normal 1.2-3.8 [facility] Comment on above: Performed By: #### C BC ####[facility] Dowtffewyk3215 [place] [address]DrKianna Tripathi Lymphocytes/100 WBC (Bld) 23.5 % Normal 20.5-60.0 [facility] Comment on above: Performed By: #### C BC ####[facility] Tnvmtwvuba9113 [place] [address]DrKianna Tripathi MANUAL DIFF REQ NO Normal [facility] Comment on above: Performed By: #### C BC ####[facility] Fgayruajwz9014 [place] [address]DrKianna Tripathi MCH (RBC) [Entitic mass] 30.8 pg Normal 26.7-34.0 [facility] Comment on above: Performed By: #### C BC ####[facility] Extivopgur0000[address] [place], [place] [address]DrKianna Tripathi MCHC (RBC) [Mass/Vol] 31.3 g/dL Normal 29.9-35.2 [facility] Comment on above: Performed By: #### C BC ####[facility] Mltgqsrkij3913[address] [place], [place] [address]DrKianna Tripathi MCV (RBC) [Entitic vol] 98.4 fL Normal 81.0-99.0 [facility] Comment on above: Performed By: #### C BC ####[facility] Umkixhknzt616[address] [place], [place] [address]DrKianna Tripathi MONO # 0.6 103/ul Normal 0.3-0.8 [facility] Comment on above: Performed By: #### C BC ####[facility] Szbpzofdhp311[address] [place], [place] [address]DrKianna Tripathi Monocytes/100 WBC (Bld) 7.4 % Normal 1.7-12.0 [facility] Comment on above: Performed By: #### C BC ####[facility] Aeqextzkms800[address] [place], [place] [address]DrKianna Tripathi NEUT # 5.0 103/ul Normal 1.4-6.5 [facility] Comment on above: Performed By: #### C BC ####[facility] Uhyucfvbud2476 [place] [address]Dr. Airam Tripathi Neutrophils/100 WBC (Bld) 63.7 % Normal 43.0-75.0 [facility] Comment on above: Performed By: #### C BC ####[facility] Iuicexerab1592 [place] [address]Dr. Airam Tripathi Platelet mean volume (Bld) [Entitic vol] 9.5 fL Normal 9.5-13.5 [facility] Comment on above: Performed By: #### C BC ####[facility] Zaysiggpwf866[address] [place], [place] [address]Dr. Airam Tripathi PLT 280 103/ul Normal 150-450 [facility] Comment on above: Performed By: #### C BC ####[facility] Kbhlxmozft07[address] [place], [place] [address]Dr. Airam Tripathi RBC 3.12 106/ul Critically low 4.20-5.40 [facility] Comment on above: Performed By: #### C BC ####[facility] Xlrauexyzt32[address] [place], [place] [address]Dr. Airam Tripathi WBC 7.9 103/ul Normal 4.0-11.0 [facility] Comment on above: Performed By: #### C BC ####[facility] Lbtqpcdmvy9764[address] [place], [place] [address]Dr. Airam Tripathi PROF 14(COMP METB)on 022 Albumin [Mass/Vol] 3.1 g/dL Critically low 3.4-5.0 [facility] Comment on above: Performed By: #### C MP ####[facility] Wogbqkdmih6799[address] [place], [place] [address]Dr. Airam Tripathi Albumin/Globulin [Mass ratio] 0.9 {ratio} Normal [facility] Comment on above: Performed By: #### C MP ####[facility] Xtybrwzjrr4922[address] [place], [place] [address]Dr. Airam Tripathi ALP [Catalytic activity/Vol] 140 U/L Critically high 46-116 [facility] Comment on above: Performed By: #### C MP ####[facility] Ydnjanlnvl9802 [place] [address]Dr. Airam Tripathi ALT [Catalytic activity/Vol] 24 U/L Normal 14-59 [facility] Comment on above: Performed By: #### C MP ####[facility] Kckrbzhbco4464 [place] [id number]. Airam Tripathi Anion gap [Moles/Vol] 11.2 mmol/L Normal [facility] Comment on above: Performed By: #### C MP ####[facility] Rsansfueua5385 [place] [address]Dr. Airam Deuce AST [Catalytic activity/Vol] 26 U/L Normal 15-37 [facility] Comment on above: Performed By: #### C MP ####[facility] Zasuajjvqy204[address] [place], [place] [address]Dr. Airam Deuce Bilirubin [Mass/Vol] 0.2 mg/dL Normal 0.2-1.0 [facility] Comment on above: Performed By: #### C MP ####[facility] Vuhcwmpzyg560[address] [place], [place] [address]Dr. Airam Deuce Calcium [Mass/Vol] 8.3 mg/dL Critically low 8.5-10.1 [facility] Comment on above: Performed By: #### C MP ####[facility] Qnqzcbcbvh9432 [place] [address]Dr. Airam Deuce Chloride [Moles/Vol] 101 mmol/L Normal 98-107 [facility] Comment on above: Performed By: #### C MP ####[facility] Ifscejcmun48[address] [place], [place] [id number]. Airam Deuce CO2 [Moles/Vol] 25.5 mmol/L Normal 21.0-32.0 [facility] Comment on above: Performed By: #### C MP ####[facility] Svjrtwvvyc46[address] [place], [place] [id number]. Airam Deuce Creatinine [Mass/Vol] 1.43 mg/dL Critically high 0.55-1.02 [facility] Comment on above: Performed By: #### C MP ####[facility] Pqfrwwrtuq9393 [place] [address]Dr. Airam Deuce EGFR-AF ARGENTINE 45 mL/min/1.73m2 Critically low >=60 [facility] Comment on above: Performed By: #### C MP ####[facility] Oiyaxvlhfu0427 [place] [id number]. Airam Deuce EGFR-NON AF ARGENTINE 37 mL/min/1.73m2 Critically low >=60 [facility] Comment on above: Performed By: #### C MP ####[facility] Kpbpqxfiff9855 [place] [address]Dr. Airam Tripathi Globulin (S) [Mass/Vol] 3.3 g/dL Normal [facility] Comment on above: Performed By: #### C MP ####[facility] Cfsykazboj7286 [place] [address]Dr. Airam Tripathi Glucose [Mass/Vol] 74 mg/dL Normal 74-106 [facility] Comment on above: Performed By: #### C MP ####[facility] Atdodogmsw6645 [place] [address]Dr. Airam Tripathi Potassium [Moles/Vol] 4.7 mmol/L Normal 3.5-5.1 [facility] Comment on above: Performed By: #### C MP ####[facility] Eyeywsqrvp0097 [place] [address]Dr. Airam Tripathi Protein [Mass/Vol] 6.4 g/dL Normal 6.4-8.2 [facility] Comment on above: Performed By: #### C MP ####[facility] Xuzteyjost1710 [place] [address]Dr. Airam Tripathi Sodium [Moles/Vol] 133 mmol/L Critically low 136-145 [facility] Comment on above: Performed By: #### C MP ####[facility] Tqajlqzjhl8792 [place] [id number]. Airam Tripathi Urea nitrogen [Mass/Vol] 38.0 mg/dL Critically high 7.0-18.0 [facility] Comment on above: Performed By: #### C MP ####[facility] Pwokourmil4567[address] [place], [place] [address]Dr. Airam Tripathi Urea nitrogen/Creatinine [Mass ratio] 26.6 mg/mg Normal [facility] Comment on above: Performed By: #### C MP ####[facility] Nzpqibzjai7[address] [place], [place] [address]Dr. Airam Tripathi OSMOLALITYon 04-29-2022 Osmolality [Osmolality] 292 mosm/kg Normal 275-295 [facility] Comment on above: Performed By: #### O SMO ####[facility] Rgttxajwpy460[address] [place], [place] [address]Dr. Airam Tripathi CBC AUTO DIFFon 04-28-2022 BASO # 0.0 103/ul Normal 0.0-0.1 [facility] Comment on above: Performed By: #### C BC ####[facility] Cbulbzihyo7723[address] [place], [place] [address]DrKianna Tripathi Basophils/100 WBC (Bld) 0.5 % Normal 0.2-2.0 [facility] Comment on above: Performed By: #### C BC ####[facility] Nfmyspjxur40[address] [place], [place] [address]DrKianna Tripathi EO # 0.2 103/ul Normal 0.0-0.7 [facility] Comment on above: Performed By: #### C BC ####[facility] Gebxtswxbc917[address] [place], [place] [address]Dr. Airam Tripathi Eosinophils/100 WBC (Bld) 3.4 % Normal 0.9-7.0 [facility] Comment on above: Performed By: #### C BC ####[facility] Eijwzuusiw216[address] [place], [place] [address]Dr. Airam Tripathi Erythrocyte distribution width (RBC) [Ratio] 13.4 % Normal 11.0-15.0 [facility] Comment on above: Performed By: #### C BC ####[facility] Jhegwjlyhi9[address] [place], [place] [address]Dr. Airam Tripathi Hematocrit (Bld) [Volume fraction] 31.6 % Critically low 36.0-48.0 [facility] Comment on above: Performed By: #### C BC ####[facility] Hisjtkhktt0234 [place] [address]DrKianna Airam Tripathi Hemoglobin (Bld) [Mass/Vol] 9.8 g/dL Critically low 12.0-16.0 [facility] Comment on above: Performed By: #### C BC ####[facility] Yuxhbozxiu[address] [place], [place] [address]DrKianna Airam Tripathi IG # 0.02 10e3/ul Normal 0.00-0.03 [facility] Comment on above: Performed By: #### C BC ####[facility] Abaavnxmup14[address] [place], [place] [address]DrKianna Airam Deuce IG % 0.3 % Normal 0.0-0.5 [facility] Comment on above: Performed By: #### C BC ####[facility] Seamrgaoyf[address] [place], [place] [address]DrKianna Airam Deuce LYMPH # 1.3 103/ul Normal 1.2-3.8 [facility] Comment on above: Performed By: #### C BC ####[facility] Ozlidldbak[address] [place], [place] [address]DrKianna Airam Tripathi Lymphocytes/100 WBC (Bld) 21.7 % Normal 20.5-60.0 [facility] Comment on above: Performed By: #### C BC ####[facility] Tyojvjdpej[address] [place], [place] [address]DrKianna Airam Deuce MANUAL DIFF REQ NO Normal [facility] Comment on above: Performed By: #### C BC ####[facility] Tuuyfueclm9[address] [place], [place] [address]DrKianna Airam Deuce MCH (RBC) [Entitic mass] 30.7 pg Normal 26.7-34.0 [facility] Comment on above: Performed By: #### C BC ####[facility] Tlzmnplmqv13[address] [place], [place] [address]DrKianna Airam Deuce MCHC (RBC) [Mass/Vol] 31.0 g/dL Normal 29.9-35.2 [facility] Comment on above: Performed By: #### C BC ####[facility] Rwohebxasr[address] [place] [address]DrKianna Tripathi MCV (RBC) [Entitic vol] 99.1 fL Critically high 81.0-99.0 [facility] Comment on above: Performed By: #### C BC ####[facility] Uaxlzloxao145[address] [place], [place] [address]DrKianna Tripathi MONO # 0.3 103/ul Normal 0.3-0.8 [facility] Comment on above: Performed By: #### C BC ####[facility] Ylvrvgrjzy[address] [place], [place] [address]DrKianna Tripathi Monocytes/100 WBC (Bld) 5.2 % Normal 1.7-12.0 [facility] Comment on above: Performed By: #### C BC ####[facility] Glbwyyslcz[address] [place], [place] [address]DrKianna Tripathi NEUT # 4.1 103/ul Normal 1.4-6.5 [facility] Comment on above: Performed By: #### C BC ####[facility] Oqojgdhicz0614[address] [place], [place] [address]DrKianna Tripathi Neutrophils/100 WBC (Bld) 68.9 % Normal 43.0-75.0 [facility] Comment on above: Performed By: #### C BC ####[facility] Rtfybtxtvh0434[address] [place], [place] [address]DrKianna Tripathi Platelet mean volume (Bld) [Entitic vol] 9.8 fL Normal 9.5-13.5 [facility] Comment on above: Performed By: #### C BC ####[facility] Plflxdesre9[address] [place], [place] [address]DrKianna Tripathi PLT 329 103/ul Normal 150-450 [facility] Comment on above: Performed By: #### C BC ####[facility] Gcskhmuiul54[address] [place], [place] [address]DrKianna Tripathi RBC 3.19 106/ul Critically low 4.20-5.40 [facility] Comment on above: Performed By: #### C BC ####[facility] Grspcngsia34[address] [place] [address]Dr. Airam Tripathi WBC 5.9 103/ul Normal 4.0-11.0 [facility] Comment on above: Performed By: #### C BC ####[facility] Zvapjgschu[address] [place], [place] [address]DrKianna Tripathi PROF 14(COMP METB)on 022 Albumin [Mass/Vol] 2.9 g/dL Critically low 3.4-5.0 [facility] Comment on above: Performed By: #### C MP ####[facility] Khrncurcsy4985[address] [place], [place] [address]Dr. Airam Tripathi Albumin/Globulin [Mass ratio] 0.9 {ratio} Normal [facility] Comment on above: Performed By: #### C MP ####[facility] Bruqaeezzy884793 [address] [place], [place] [address]Dr. Airam Tripathi ALP [Catalytic activity/Vol] 127 U/L Critically high 46-116 [facility] Comment on above: Performed By: #### C MP ####[facility] Szjzhszhts957[address] [place], [place] [address]Dr. Airam Tripathi ALT [Catalytic activity/Vol] 22 U/L Normal 14-59 [facility] Comment on above: Performed By: #### C MP ####[facility] Sktxbttiva664[address] [place], [place] [address]Dr. Airam Tripathi Anion gap [Moles/Vol] 6.7 mmol/L Normal [facility] Comment on above: Performed By: #### C MP ####[facility] Stoqotlyru716[address] [place], [place] [address]Dr. Airam Tripathi AST [Catalytic activity/Vol] 24 U/L Normal 15-37 [facility] Comment on above: Performed By: #### C MP ####[facility] Klsmfuypec981493 [address] [place], [place] [address]Dr. Airam Tripathi Bilirubin [Mass/Vol] 0.2 mg/dL Normal 0.2-1.0 [facility] Comment on above: Performed By: #### C MP ####[facility] Bkokxgkbnu865[address] [place], [place] [address]Dr. Airam Tripathi Calcium [Mass/Vol] 8.2 mg/dL Critically low 8.5-10.1 [facility] Comment on above: Performed By: #### C MP ####[facility] Fiqldjitsv8450[address] [place], [place] [address]Dr. Airam Deuce Chloride [Moles/Vol] 105 mmol/L Normal 98-107 [facility] Comment on above: Performed By: #### C MP ####[facility] Jbbtiosblq0034[address] [place], [place] [address]Dr. Airam Tripathi CO2 [Moles/Vol] 28.2 mmol/L Normal 21.0-32.0 [facility] Comment on above: Performed By: #### C MP ####[facility] Wyjpbnertf1522[address] [place], [place] [address]Dr. Airam Deuce Creatinine [Mass/Vol] 1.22 mg/dL Critically high 0.55-1.02 [facility] Comment on above: Performed By: #### C MP ####[facility] Djsvkjwcki445[address] [place], [place] [address]Dr. Airam Deuce EGFR-AF ARGENTINE 54 mL/min/1.73m2 Critically low >=60 [facility] Comment on above: Performed By: #### C MP ####[facility] Gzvnseohxc0548[address] [place], [place] [address]Dr. Airam Deuce EGFR-NON AF ARGENTINE 45 mL/min/1.73m2 Critically low >=60 [facility] Comment on above: Performed By: #### C MP ####[facility] Ukshkiczdg4810[address] [place], [place] [address]Dr. Airam Tripathi Globulin (S) [Mass/Vol] 3.2 g/dL Normal [facility] Comment on above: Performed By: #### C MP ####[facility] Wwzjzixlda698[address] [place], [place] [address]Dr. Airam Tripathi Glucose [Mass/Vol] 77 mg/dL Normal 74-106 [facility] Comment on above: Performed By: #### C MP ####[facility] Xoxfhzdvuj[address] [place] [address]Dr. Airam Tripathi Potassium [Moles/Vol] 4.9 mmol/L Normal 3.5-5.1 [facility] Comment on above: Performed By: #### C MP ####[facility] Atonkrxaar945[address] [place], [place] [address]Dr. Airam Tripathi Protein [Mass/Vol] 6.1 g/dL Critically low 6.4-8.2 [facility] Comment on above: Performed By: #### C MP ####[facility] Wvqaegowve964[address] [place], [place] [address]Dr. Airam Tripathi Sodium [Moles/Vol] 135 mmol/L Critically low 136-145 [facility] Comment on above: Performed By: #### C MP ####[facility] Fvlvmdvurf2926[address] [place], [place] [address]Dr. Airam Tripathi Urea nitrogen [Mass/Vol] 30.0 mg/dL Critically high 7.0-18.0 [facility] Comment on above: Performed By: #### C MP ####[facility] Gthotfjutz543[address] [place], [place] [address]Dr. Airam Tripathi Urea nitrogen/Creatinine [Mass ratio] 24.6 mg/mg Normal [facility] Comment on above: Performed By: #### C MP ####[facility] Wrkyohawft883893 [address] [place], [place] [address]Dr. Airam Tripathi OSMOLALITYon 04-23-2022 Osmolality [Osmolality] 289 mosm/kg Normal 275-295 [facility] Comment on above: Performed By: #### O SMO ####[facility] Phdxhfrvvu6023[address] [place], [place] [address]DrKianna Tripathi CBC AUTO DIFFon 04-20-2022 BASO # 0.0 103/ul Normal 0.0-0.1 [facility] Comment on above: Performed By: #### C BC ####[facility] Fgwmpjwfrq423[address] [place], [place] [address]Dr. Airam Tripathi Basophils/100 WBC (Bld) 0.4 % Normal 0.2-2.0 [facility] Comment on above: Performed By: #### C BC ####[facility] Hfhgfgcoog092593 [address] [place], [place] [address]Dr. Airam Tripathi EO # 0.2 103/ul Normal 0.0-0.7 [facility] Comment on above: Performed By: #### C BC ####[facility] Adxptfuovd738[address] [place], [place] [address]Dr. Airam Tripathi Eosinophils/100 WBC (Bld) 3.1 % Normal 0.9-7.0 [facility] Comment on above: Performed By: #### C BC ####[facility] Bqfldqasnv815[address] [place], [place] [address]Dr. Airam Tripathi Erythrocyte distribution width (RBC) [Ratio] 13.8 % Normal 11.0-15.0 [facility] Comment on above: Performed By: #### C BC ####[facility] Mlxbxwrzca539[address] [place], [place] [address]Dr. Airam Tripathi Hematocrit (Bld) [Volume fraction] 29.5 % Critically low 36.0-48.0 [facility] Comment on above: Performed By: #### C BC ####[facility] Iqssyrofxm779[address] [place], [place] [address]Dr. Airam Tripathi Hemoglobin (Bld) [Mass/Vol] 9.2 g/dL Critically low 12.0-16.0 [facility] Comment on above: Performed By: #### C BC ####[facility] Slsznypmei1727[address] [place], [place] [address]Dr. Airam Tripathi IG # 0.02 10e3/ul Normal 0.00-0.03 [facility] Comment on above: Performed By: #### C BC ####[facility] Kjrduvkcgr310[address] [place], [place] [address]Dr. Airam Tripathi IG % 0.4 % Normal 0.0-0.5 [facility] Comment on above: Performed By: #### C BC ####[facility] Yiqmtwpsuz9580[address] [place], [place] [address]Dr. Airam Tripathi LYMPH # 0.8 103/ul Critically low 1.2-3.8 [facility] Comment on above: Performed By: #### C BC ####[facility] Bj[address]zvikzy[address] [place] [address]Dr. Selenaneil Tripathi Lymphocytes/100 WBC (Bld) 14.0 % Critically low 20.5-60.0 [facility] Comment on above: Performed By: #### C BC ####[facility] Wcfphyxdhu1577[address] [place], [place] [address]Dr. Airam Tripathi MANUAL DIFF REQ NO Normal [facility] Comment on above: Performed By: #### C BC ####[facility] Fzxkygbppd837[address] [place], [place] [address]Dr. Airam Tripathi MCH (RBC) [Entitic mass] 30.4 pg Normal 26.7-34.0 [facility] Comment on above: Performed By: #### C BC ####[facility] Tyduojqxzo019[address] [place], [place] [address]Dr. Selenaneil Tripathi MCHC (RBC) [Mass/Vol] 31.2 g/dL Normal 29.9-35.2 [facility] Comment on above: Performed By: #### C BC ####[facility] Xaeykhbcqd7040[address] [place], [place] [address]Dr. Airam Tripathi MCV (RBC) [Entitic vol] 97.4 fL Normal 81.0-99.0 [facility] Comment on above: Performed By: #### C BC ####[facility] Irfrfkuesr4815[address] [place], [place] [address]Dr. Airam Tripathi MONO # 0.3 103/ul Normal 0.3-0.8 [facility] Comment on above: Performed By: #### C BC ####[facility] Nfrnuecave0937[address] [place], [place] [address]Dr. Airam Tripathi Monocytes/100 WBC (Bld) 5.6 % Normal 1.7-12.0 [facility] Comment on above: Performed By: #### C BC ####[facility] Tcvhanwgxv736[address] [place], [place] [address]Dr. Airam Tripathi NEUT # 4.2 103/ul Normal 1.4-6.5 [facility] Comment on above: Performed By: #### C BC ####[facility] Ix[address]uputopn[address] [place] [address]Dr. Airam Tripathi Neutrophils/100 WBC (Bld) 76.5 % Critically high 43.0-75.0 [facility] Comment on above: Performed By: #### C BC ####[facility] V[address]ftsdgbhl3[address] [place] [address]Dr. Airam Tripathi Platelet mean volume (Bld) [Entitic vol] 9.4 fL Critically low 9.5-13.5 [facility] Comment on above: Performed By: #### C BC ####[facility] Ipahmgqcig57[address] [place] [address]Dr. Selenaneil Deuce PLT 250 103/ul Normal 150-450 [facility] Comment on above: Performed By: #### C BC ####[facility] Trflprzamh090[address] [place], [place] [address]Dr. Selenaneil Deuce RBC 3.03 106/ul Critically low 4.20-5.40 [facility] Comment on above: Performed By: #### C BC ####[facility] Rejhmnripp2330[address] [place], [place] [address]Dr. Airam Deuce WBC 5.5 103/ul Normal 4.0-11.0 [facility] Comment on above: Performed By: #### C BC ####[facility] Axntvoebfv837[address] [place], [place] [address]DrKianna Tripathi PROF 14(COMP METB)on 022 Albumin [Mass/Vol] 2.7 g/dL Critically low 3.4-5.0 [facility] Comment on above: Performed By: #### C MP ####[facility] Aiwopdxxru398[address] [place], [place] [address]Dr. Airam Tripathi Albumin/Globulin [Mass ratio] 0.9 {ratio} Normal [facility] Comment on above: Performed By: #### C MP ####[facility] Cdnftljpyc4036[address] [place], [place] [address]Dr. Airam Deuce ALP [Catalytic activity/Vol] 113 U/L Normal 46-116 [facility] Comment on above: Performed By: #### C MP ####[facility] Y[address]udqp[address] [place] [address]Dr. Airam Tripathi ALT [Catalytic activity/Vol] 20 U/L Normal 14-59 [facility] Comment on above: Performed By: #### C MP ####[facility] Aosjpdpazy7[address] [place] [address]Dr. Airam Deuce Anion gap [Moles/Vol] 11.1 mmol/L Normal [facility] Comment on above: Performed By: #### C MP ####[facility] Vugnctckld513[address] [place], [place] [address]Dr. Airam Deuce AST [Catalytic activity/Vol] 19 U/L Normal 15-37 [facility] Comment on above: Performed By: #### C MP ####[facility] Jvodgdtypy294[address] [place], [place] [address]Dr. Airam Deuce Bilirubin [Mass/Vol] 0.2 mg/dL Normal 0.2-1.0 [facility] Comment on above: Performed By: #### C MP ####[facility] Ckzfxwjmjh785[address] [place], [place] [address]Dr. Airam Deuce Calcium [Mass/Vol] 8.3 mg/dL Critically low 8.5-10.1 [facility] Comment on above: Performed By: #### C MP ####[facility] Aiwvzqeuot6[address] [place] [address]Dr. Selenaneil Tripathi Chloride [Moles/Vol] 104 mmol/L Normal 98-107 [facility] Comment on above: Performed By: #### C MP ####[facility] Dguxapybft8944[address] [place], [place] [address]Dr. Airam Tripathi CO2 [Moles/Vol] 25.3 mmol/L Normal 21.0-32.0 [facility] Comment on above: Performed By: #### C MP ####[facility] Abgrqizwoq928[address] [place], [place] [address]Dr. Airam Tripathi Creatinine [Mass/Vol] 1.33 mg/dL Critically high 0.55-1.02 [facility] Comment on above: Performed By: #### C MP ####[facility] Yeht[address]oygfw99[address] [place] [id number]. Airam Deuce EGFR-AF ARGENTINE 49 mL/min/1.73m2 Critically low >=60 [facility] Comment on above: Performed By: #### C MP ####[facility] Grxmqthuub5275 [place] [id number]. Selenaneil Deuce EGFR-NON AF ARGENTINE 41 mL/min/1.73m2 Critically low >=60 [facility] Comment on above: Performed By: #### C MP ####[facility] Kvgblsutua1478 [place] [address]Dr. Airam Tripathi Globulin (S) [Mass/Vol] 3.1 g/dL Normal [facility] Comment on above: Performed By: #### C MP ####[facility] Vohhwtieop1014 [place] [address]Dr. Airam Tripathi Glucose [Mass/Vol] 88 mg/dL Normal 74-106 [facility] Comment on above: Performed By: #### C MP ####[facility] Wwazhxmjel28[address] [place] [address]Dr. Airam Tripathi Potassium [Moles/Vol] 5.4 mmol/L Critically high 3.5-5.1 [facility] Comment on above: Performed By: #### C MP ####[facility] Icaxdlawws9827 [place] [id number]. Airam Tripathi Protein [Mass/Vol] 5.8 g/dL Critically low 6.4-8.2 [facility] Comment on above: Performed By: #### C MP ####[facility] Jhemmunabq917[address] [place], [place] [address]Dr. Airam Tripathi Sodium [Moles/Vol] 135 mmol/L Critically low 136-145 [facility] Comment on above: Performed By: #### C MP ####[facility] Bitzpjmmzg776[address] [place], [place] [address]Dr. Airam Tripathi Urea nitrogen [Mass/Vol] 38.0 mg/dL Critically high 7.0-18.0 [facility] Comment on above: Performed By: #### C MP ####[facility] Oitfwvqmja7515[address] [place], [place] [address]Dr. Airam Tripathi Urea nitrogen/Creatinine [Mass ratio] 28.6 mg/mg Normal [facility] Comment on above: Performed By: #### C MP ####[facility] Isusgehskx142[address] [place], [place] [address]Dr. Airam Tripathi OSMOLALITYon 04-15-2022 Osmolality [Osmolality] 284 mosm/kg Normal 275-295 [facility] Comment on above: Performed By: #### O SMO ####[facility] Obxvljzlef[address] [place], [place] [address]Dr. Airam Tripathi CBC AUTO DIFFon 04-14-2022 BASO # 0.0 103/ul Normal 0.0-0.1 [facility] Comment on above: Performed By: #### C BC ####[facility] Djcifgysid4845[address] [place], [place] [address]Dr. Airam Tripathi Basophils/100 WBC (Bld) 0.5 % Normal 0.2-2.0 [facility] Comment on above: Performed By: #### C BC ####[facility] Obcclcsbuy6225[address] [place], [place] [address]Dr. Airam Tripathi EO # 0.3 103/ul Normal 0.0-0.7 [facility] Comment on above: Performed By: #### C BC ####[facility] Dcpjeqvfil2690[address] [place], [place] [address]Dr. Airam Tripathi Eosinophils/100 WBC (Bld) 3.6 % Normal 0.9-7.0 [facility] Comment on above: Performed By: #### C BC ####[facility] Obzguafiud449[address] [place], [place] [address]Dr. Airam Tripathi Erythrocyte distribution width (RBC) [Ratio] 13.4 % Normal 11.0-15.0 [facility] Comment on above: Performed By: #### C BC ####[facility] Lrmxsbrpcv94[address] [place] [address]Dr. Airam Tripathi Hematocrit (Bld) [Volume fraction] 30.6 % Critically low 36.0-48.0 [facility] Comment on above: Performed By: #### C BC ####[facility] Eyzbyvoaiy40[address] [place] [address]Dr. Airam Tripathi Hemoglobin (Bld) [Mass/Vol] 9.7 g/dL Critically low 12.0-16.0 [facility] Comment on above: Performed By: #### C BC ####[facility] Rcwirnpnis69[address] [place] [address]Dr. Airam Deuce IG # 0.08 10e3/ul Critically high 0.00-0.03 [facility] Comment on above: Performed By: #### C BC ####[facility] Betnyraslp414[address] [place], [place] [address]Dr. Selenaneil Tripathi IG % 0.9 % Critically high 0.0-0.5 [facility] Comment on above: Performed By: #### C BC ####[facility] Xfrnsetfxj969[address] [place], [place] [address]Dr. Airam Tripathi LYMPH # 2.1 103/ul Normal 1.2-3.8 [facility] Comment on above: Performed By: #### C BC ####[facility] Qxpydclepl3108 [place] [address]Dr. Selenaneil Tripathi Lymphocytes/100 WBC (Bld) 24.2 % Normal 20.5-60.0 [facility] Comment on above: Performed By: #### C BC ####[facility] Iaifbnpesl17[address] [place] [address]DrKianna Selenaneil Tripathi MANUAL DIFF REQ NO Normal [facility] Comment on above: Performed By: #### C BC ####[facility] Celadcjjuu9[address] [place], [place] [address]DrKianna Selenaneil Tripathi MCH (RBC) [Entitic mass] 30.4 pg Normal 26.7-34.0 [facility] Comment on above: Performed By: #### C BC ####[facility] Mbkomkgbtk317[address] [place], [place] [address]Dr. Airam Tripathi MCHC (RBC) [Mass/Vol] 31.7 g/dL Normal 29.9-35.2 [facility] Comment on above: Performed By: #### C BC ####[facility] V[address]vmcfj[address] [place] [id number]. Airam Tripathi MCV (RBC) [Entitic vol] 95.9 fL Normal 81.0-99.0 [facility] Comment on above: Performed By: #### C BC ####[facility] Sijyexzpbi4204 [place] [id number]. Airam Deuce MONO # 0.5 103/ul Normal 0.3-0.8 [facility] Comment on above: Performed By: #### C BC ####[facility] Vduteasdec4781 [place] [address]Dr. Airam Tripathi Monocytes/100 WBC (Bld) 6.0 % Normal 1.7-12.0 [facility] Comment on above: Performed By: #### C BC ####[facility] Wbbvnpmkal2859 [place] [address]Dr. Selenaneil Deuce NEUT # 5.6 103/ul Normal 1.4-6.5 [facility] Comment on above: Performed By: #### C BC ####[facility] Cnoxfubazk5092 [place] [id number]. Selenaneil Tripathi Neutrophils/100 WBC (Bld) 64.8 % Normal 43.0-75.0 [facility] Comment on above: Performed By: #### C BC ####[facility] Lidpxnznla0612 [place] [id number]. Airam Deuce Platelet mean volume (Bld) [Entitic vol] 9.2 fL Critically low 9.5-13.5 [facility] Comment on above: Performed By: #### C BC ####[facility] Zerwvkqjpr9059 [place] [id number]. Selenaneil Deuce PLT 296 103/ul Normal 150-450 [facility] Comment on above: Performed By: #### C BC ####[facility] Cirzxzfysp9249 [place] [address]Dr. Airam Deuce RBC 3.19 106/ul Critically low 4.20-5.40 [facility] Comment on above: Performed By: #### C BC ####[facility] Ylkdhpxasu8323 [place] [address]Dr. Airam Deuce WBC 8.6 103/ul Normal 4.0-11.0 [facility] Comment on above: Performed By: #### C BC ####[facility] Msdiabfaoi1780[address] [place], [place] [address]Dr. Airam Tripathi PROF 14(COMP METB)on 022 Albumin [Mass/Vol] 3.2 g/dL Critically low 3.4-5.0 [facility] Comment on above: Performed By: #### C MP ####[facility] Fhomdzxcrx[address] [place], [place] [address]Dr. Airam Tripathi Albumin/Globulin [Mass ratio] 1.0 {ratio} Normal [facility] Comment on above: Performed By: #### C MP ####[facility] Gzpxkmifnr310[address] [place], [place] [address]Dr. Selenaneil Tripathi ALP [Catalytic activity/Vol] 126 U/L Critically high 46-116 [facility] Comment on above: Performed By: #### C MP ####[facility] Jnuwcfgsts3545[address] [place], [place] [address]Dr. Airam Tripathi ALT [Catalytic activity/Vol] 27 U/L Normal 14-59 [facility] Comment on above: Performed By: #### C MP ####[facility] Bxaeixwnaj612[address] [place], [place] [address]Dr. Airam Tripathi Anion gap [Moles/Vol] 9.6 mmol/L Normal [facility] Comment on above: Performed By: #### C MP ####[facility] Blhhhpjiio982[address] [place], [place] [address]Dr. Airam Tripathi AST [Catalytic activity/Vol] 25 U/L Normal 15-37 [facility] Comment on above: Performed By: #### C MP ####[facility] Uiovxcsehz2795[address] [place], [place] [address]Dr. Airam Tripathi Bilirubin [Mass/Vol] 0.3 mg/dL Normal 0.2-1.0 [facility] Comment on above: Performed By: #### C MP ####[facility] Xgsvofxzgx076[address] [place], [place] [address]Dr. Airam Tripathi Calcium [Mass/Vol] 8.1 mg/dL Critically low 8.5-10.1 [facility] Comment on above: Performed By: #### C MP ####[facility] Adsjqeaosc5838[address] [place], [place] [address]Dr. Airam Tripathi Chloride [Moles/Vol] 100 mmol/L Normal 98-107 [facility] Comment on above: Performed By: #### C MP ####[facility] Plelilhlvq[address] [place], [place] [address]Dr. Airam Tripathi CO2 [Moles/Vol] 26.5 mmol/L Normal 21.0-32.0 [facility] Comment on above: Performed By: #### C MP ####[facility] Ckkmybvtul2347[address] [place], [place] [address]Dr. Airam Tripathi Creatinine [Mass/Vol] 1.52 mg/dL Critically high 0.55-1.02 [facility] Comment on above: Performed By: #### C MP ####[facility] Shzipbdyvm367[address] [place], [place] [address]Dr. Airam Tripathi EGFR-AF ARGENTINE 42 mL/min/1.73m2 Critically low >=60 [facility] Comment on above: Performed By: #### C MP ####[facility] Yslgbefzul4734[address] [place], [place] [address]Dr. Airam Deuce EGFR-NON AF ARGENTINE 35 mL/min/1.73m2 Critically low >=60 [facility] Comment on above: Performed By: #### C MP ####[facility] Jadmblwtrt[address] [place], [place] [address]Dr. Airam Deuce Globulin (S) [Mass/Vol] 3.3 g/dL Normal [facility] Comment on above: Performed By: #### C MP ####[facility] [address]zviorqnh[address] [place], [place] [id number]. Airam Tripathi Glucose [Mass/Vol] 75 mg/dL Normal 74-106 [facility] Comment on above: Performed By: #### C MP ####[facility] Stvyiqcttm35[address] [place] [address]Dr. Airam Tripathi Potassium [Moles/Vol] 4.1 mmol/L Normal 3.5-5.1 [facility] Comment on above: Performed By: #### C MP ####[facility] Hwrvjitukl[address] [place], [place] [address]Dr. Airam Tripathi Protein [Mass/Vol] 6.5 g/dL Normal 6.4-8.2 [facility] Comment on above: Performed By: #### C MP ####[facility] Porpnveiim[address] [place], [place] [address]Dr. Airam Tripathi Sodium [Moles/Vol] 132 mmol/L Critically low 136-145 [facility] Comment on above: Performed By: #### C MP ####[facility] Vgbrbjnuey[address] [place], [place] [address]Dr. Airam Tripathi Urea nitrogen [Mass/Vol] 40.0 mg/dL Critically high 7.0-18.0 [facility] Comment on above: Performed By: #### C MP ####[facility] Animbikbil54[address] [place], [place] [address]Dr. Airam Tripathi Urea nitrogen/Creatinine [Mass ratio] 26.3 mg/mg Normal [facility] Comment on above: Performed By: #### C MP ####[facility] Nfdejshzfo852[address] [place], [place] [address]Dr. Airam Tripathi OSMOLALITYon 04-10-2022 Osmolality [Osmolality] 280 mosm/kg Normal 275-295 [facility] Comment on above: Performed By: #### O SMO ####[facility] Uljhmqtqqc[address] [place], [place] [address]Dr. Airam Tripathi PTH INTACTon 04-09-2022 PTH, Intact 89 pg/mL Critically high 15-65 [facility] Comment on above: Performed By: #### P THINT ####[facility] Eynyqpvvob[address] [place] [address]Dr. Airam Deuce CBC W MANUAL DIFFon 04-08-20 22 ATYPICAL LYMPH # Normal [facility] Comment on above: Performed By: #### C CHRISTEN ####[facility] Uhulaiwxjq90[address] [place] [address]Dr. Airam Tripathi ATYPICAL LYMPH % Normal [facility] Comment on above: Performed By: #### C CHRISTEN ####[facility] Giiyxbbcxl598[address] [place], [place] [address]Dr. Selenaneil Deuce BAND # Normal 0.0-0.3 [facility] Comment on above: Performed By: #### C CHRISTEN ####[facility] Ugxjimvtjl349[address] [place], [place] [address]Dr. Airam Tripathi BAND % Normal 0-5 [facility] Comment on above: Performed By: #### C CHRISTEN ####[facility] Wrdryngqid475[address] [place], [place] [address]Dr. Airam Tripathi BASOM # 0.00 103/ul Normal 0.00-0.10 [facility] Comment on above: Performed By: #### C CHRISTEN ####[facility] Zglhlcfcao[address] [place], [place] [address]Dr. Airam Tripathi BASOM % 0.0 % Critically low 0.2-2.0 [facility] Comment on above: Performed By: #### C CHRISTEN ####[facility] Amyzeqewju460[address] [place], [place] [address]Dr. Selenaneil Deuce BLAST # Normal [facility] Comment on above: Performed By: #### C CHRISTEN ####[facility] Uulboaopyf494[address] [place], [place] [address]Dr. Airam Tripathi BLAST % Normal [facility] Comment on above: Performed By: #### C CHRISTEN ####[facility] Bjujnlxepz998[address] [place], [place] [address]Dr. Airam Tripathi CORRECTED WBC Normal 4.0-11.0 [facility] Comment on above: Performed By: #### C CHRISTEN ####[facility] Kmabgcwnoh68[address] [place], [place] [address]DrKianna Tripathi EOS # 0.00 103/ul Normal 0.00-0.70 [facility] Comment on above: Performed By: #### C CHRISTEN ####[facility] Fetwyxdtwz4536 [place], [place] [address]PzKianna Tripathi EOS% 0.0 % Critically low 0.9-7.0 [facility] Comment on above: Performed By: #### C CHRISTEN ####[facility] Lnbsowsxrc9465 [place], [place] [address]Kx. Airam Tripathi HCT 29.7 % Critically low 36.0-48.0 [facility] Comment on above: Performed By: #### C CHRISTEN ####[facility] Viespkxsxq6586 [place] [id number] Tripathi HGB 9.5 g/dl Critically low 12.0-16.0 [facility] Comment on above: Performed By: #### C CHRISTEN ####[facility] Yabovtcqsz[address] [place], [place] [id number] Tripathi LYMPHM # 0.42 103/ul Critically low 1.20-3.80 [facility] Comment on above: Performed By: #### C CHRISTEN ####[facility] Wkrzlvkymf1195 [place] [id number] Tripathi LYMPHM% 7.0 % Critically low 20.5-60.0 [facility] Comment on above: Performed By: #### Jodee VELÁSQUEZ ####[facility] Qmepybuqhp5154 [place] [phone]. Airam Tripathi MCH 30.9 pg Normal 26.7-34.0 [facility] Comment on above: Performed By: #### C CHRISTEN ####[facility] Qtdwpvdsha5160 [place] [phone] Tripathi MCHC 32.0 g/dl Normal 29.9-35.2 [facility] Comment on above: Performed By: #### C CHRISTEN ####[facility] Nejzqarvbw5475 [place] [id number] Tripathi MCV 96.7 fL Normal 81.0-99.0 [facility] Comment on above: Performed By: #### C CHRISTEN ####[facility] Rcrsjmmphi5261 [place] [id number]. Airam Tripathi METAMYELOCYTE # Normal [facility] Comment on above: Performed By: #### C CHRISTEN ####[facility] Fgxuhilpft4159 [place] [id number]. Airam Tripathi METAMYELOCYTE % Normal [facility] Comment on above: Performed By: #### C CHRISTEN ####[facility] Viiqpkelpv4052 [place] [address]Dr. Airam Tripathi MONOM# 0.36 103/ul Normal 0.30-0.80 [facility] Comment on above: Performed By: #### C CHRISTEN ####[facility] Sptbkpbaly01[address] [place], [place] [address]Dr. Airam Tripathi MONOM% 6.0 % Normal 1.7-12.0 [facility] Comment on above: Performed By: #### C CHRISTEN ####[facility] Cyekqtlvdg90[address] [place], [place] [address]Dr. Airam Tripathi MPV 9.5 fL Normal 9.5-13.5 [facility] Comment on above: Performed By: #### Jodee VELÁSQUEZ ####[facility] Uguqnhzgnj[address] [place], [place] [address]Dr. Airam Tripathi MYELOCYTE # Normal [facility] Comment on above: Performed By: #### Jodee VELÁSQUEZ ####[facility] Efgagieygd89[address] [place], [place] [address]Dr. Airam Tripathi MYELOCYTE % Normal [facility] Comment on above: Performed By: #### Jodee VELÁSQUEZ ####[facility] Qjwgksjqpp201[address] [place], [place] [address]Dr. Airam Tripathi NRBC Normal [facility] Comment on above: Performed By: #### C CHRISTEN ####[facility] Klralqbwvk1682 [place] [id number]. Selenaneil Tripathi PLT 185 103/ul Normal 150-450 [facility] Comment on above: Performed By: #### C CHRISTEN ####[facility] Kjzanunldt0791 [place], [place] [address]Ab. Airam Tripathi RBC 3.07 106/ul Critically low 4.20-5.40 [facility] Comment on above: Performed By: #### Jodee VELÁSQUEZ ####[facility] Dwnmsdaywh9264 [place], [place] [address]Me. Airam Tripathi RDW 13.6 % Normal 11.0-15.0 [facility] Comment on above: Performed By: #### Jodee VELÁSQUEZ ####[facility] Jcenbartwu9697 [place], [place] [address]Pb. Airam Tripathi SEG # 5.22 103/ul Normal 1.40-6.50 [facility] Comment on above: Performed By: #### Jodee VELÁSQUEZ ####[facility] Lhwuwdfazm9053 [place], [place] [address]Gd. Airam Tripathi SEG % 87.0 % Critically high 43.0-75.0 [facility] Comment on above: Performed By: #### Jodee VELÁSQUEZ ####[facility] Nvygquaecz9615 [place], [place] [address]Fk. Airam Tripathi WBC 6.0 103/ul Normal 4.0-11.0 [facility] Comment on above: Performed By: #### Jodee VELÁSQUEZ ####[facility] Rcmosyqvhk0180 [place], [place] [address]Rj. Airam Tripathi FREE THYROXINE INDEX T7on FTI 1.57 Normal 1.30-4.50 [facility] Comment on above: Performed By: #### T 7, TSH, CMP ####[facility] Sxsddzkjur3213 [place], [place] [address]Qw. Airam Tripathi T3U 32.0 % Normal 30.0-39.0 [facility] Comment on above: Performed By: #### T 7, TSH, CMP ####[facility] Zlepnsxryx5223 [place], [place] [address]Mo. Airam Tripathi T4 [Mass/Vol] 4.90 ug/dL Normal 4.80-13.90 [facility] Comment on above: Performed By: #### T 7, TSH, CMP ####[facility] Yeqiyunfmc38[address] [place] [address]Dr. Airam Tripathi PROF 14(COMP METB)on 022 Albumin [Mass/Vol] 3.0 g/dL Critically low 3.4-5.0 [facility] Comment on above: Performed By: #### T 7, TSH, CMP ####[facility] Amswwhjprl75[address] [place] [address]Dr. Airam Tripathi Albumin/Globulin [Mass ratio] 1.0 {ratio} Normal [facility] Comment on above: Performed By: #### T 7, TSH, CMP ####[facility] Ehberwkjrm57[address] [place], [place] [address]Dr. Airam Tripathi ALP [Catalytic activity/Vol] 106 U/L Normal 46-116 [facility] Comment on above: Performed By: #### T 7, TSH, CMP ####[facility] Rodfagorvm[address] [place], [place] [address]Dr. Airam Tripathi ALT [Catalytic activity/Vol] 20 U/L Normal 14-59 [facility] Comment on above: Performed By: #### T 7, TSH, CMP ####[facility] Rnmqbxeufx174[address] [place], [place] [address]Dr. Airam Tripathi Anion gap [Moles/Vol] 10.8 mmol/L Normal [facility] Comment on above: Performed By: #### T 7, TSH, CMP ####[facility] Gfvlbzslip198[address] [place], [place] [address]Dr. Airam Tripathi AST [Catalytic activity/Vol] 19 U/L Normal 15-37 [facility] Comment on above: Performed By: #### T 7, TSH, CMP ####[facility] Larokqmtoy[address] [place], [place] [address]Dr. Airam Tripathi Bilirubin [Mass/Vol] 0.3 mg/dL Normal 0.2-1.0 [facility] Comment on above: Performed By: #### T 7, TSH, CMP ####[facility] Ucpffcjwct194[address] [place], [place] [address]Dr. Airam Tripathi Calcium [Mass/Vol] 8.0 mg/dL Critically low 8.5-10.1 [facility] Comment on above: Performed By: #### T 7, TSH, CMP ####[facility] Dhwkwryoue4865[address] [place], [place] [address]Dr. Airam Tripathi Chloride [Moles/Vol] 100 mmol/L Normal 98-107 [facility] Comment on above: Performed By: #### T 7, TSH, CMP ####[facility] Klpquupxgs35[address] [place], [place] [address]Dr. Airam Tripathi CO2 [Moles/Vol] 24.3 mmol/L Normal 21.0-32.0 [facility] Comment on above: Performed By: #### T 7, TSH, CMP ####[facility] Mgbuvetldy7080[address] [place], [place] [address]Dr. Airam Tripathi Creatinine [Mass/Vol] 1.12 mg/dL Critically high 0.55-1.02 [facility] Comment on above: Performed By: #### T 7, TSH, CMP ####[facility] Sjzpofcqxw13[address] [place], [place] [address]Dr. Airam Tripathi EGFR-AF ARGENTINE 60 mL/min/1.73m2 Normal >=60 [facility] Comment on above: Performed By: #### T 7, TSH, CMP ####[facility] Jgjbruiaef021[address] [place], [place] [address]Dr. Airam Tripathi EGFR-NON AF ARGENTINE 50 mL/min/1.73m2 Critically low >=60 [facility] Comment on above: Performed By: #### T 7, TSH, CMP ####[facility] Taqupihqys107[address] [place], [place] [address]Dr. Airam Tripathi Globulin (S) [Mass/Vol] 3.0 g/dL Normal [facility] Comment on above: Performed By: #### T 7, TSH, CMP ####[facility] Qnmknjwwwp64[address] [place], [place] [address]Dr. Airam Tripathi Glucose [Mass/Vol] 76 mg/dL Normal 74-106 [facility] Comment on above: Performed By: #### T 7, TSH, CMP ####[facility] Mjigirmjfc5925[address] [place], [place] [address]Dr. Airam Tripathi Potassium [Moles/Vol] 4.1 mmol/L Normal 3.5-5.1 [facility] Comment on above: Performed By: #### T 7, TSH, CMP ####[facility] Kgfhppglxr3300[address] [place], [place] [address]Dr. Airam Tripathi Protein [Mass/Vol] 6.0 g/dL Critically low 6.4-8.2 [facility] Comment on above: Performed By: #### T 7, TSH, CMP ####[facility] Pplujgkaii896[address] [place], [place] [address]Dr. Airam Tripathi Sodium [Moles/Vol] 131 mmol/L Critically low 136-145 [facility] Comment on above: Performed By: #### T 7, TSH, CMP ####[facility] Ebtfetjjhb436[address] [place], [place] [address]Dr. Airam Tripathi Urea nitrogen [Mass/Vol] 32.0 mg/dL Critically high 7.0-18.0 [facility] Comment on above: Performed By: #### T 7, TSH, CMP ####[facility] Dzpicowpws07[address] [place], [place] [address]Dr. iAram Tripathi Urea nitrogen/Creatinine [Mass ratio] 28.6 mg/mg Normal [facility] Comment on above: Performed By: #### T 7, TSH, CMP ####[facility] Zbetqvwsgw68[address] [place], [place] [address]Dr. Airam Tripathi TSHon 04-08-2022 TSH 0.027 uIU/mL Critically low 0.358-3.74 0 [facility] Comment on above: Performed By: #### T 7, TSH, CMP ####[facility] Gqjjcslxph[address] [place], [place] [address]Dr. Airam Tripathi UA RANDOMon 04-08-2022 Bilirubin Ql (U) Negative Normal NEGATIVE [facility] Comment on above: Performed By: #### U A ####[facility] Jnmdyefbww2214[address] [place], [place] [address]Dr. Airam Tripathi Clarity (U) CLEAR Normal CLEAR [facility] Comment on above: Performed By: #### U A ####[facility] Ywbirinxuq9254 [place] [address]Dr. Airam Tripathi Color (U) LT. YELLOW Normal YELLOW [facility] Comment on above: Performed By: #### U A ####[facility] Nxvzzptcuz3630 [place] [address]Dr. Airam Tripathi Glucose Ql (U) Negative Normal NEGATIVE [facility] Comment on above: Performed By: #### U A ####[facility] Xzdotfblok7820[address] [place], [place] [address]Dr. Airam Tripathi Hemoglobin Ql (U) Negative Normal NEGATIVE [facility] Comment on above: Performed By: #### U A ####[facility] Ifcwdcjmux36[address] [place], [place] [address]Dr. Airam Tripathi Ketones Ql (U) Negative Normal NEGATIVE [facility] Comment on above: Performed By: #### U A ####[facility] Vzeukprvvj974[address] [place], [place] [address]Dr. Airam Tripathi LEUKOCYTES Negative Normal NEGATIVE [facility] Comment on above: Performed By: #### U A ####[facility] Iwhjqnaizh6790[address] [place], [place] [address]Dr. Airam Tripathi Nitrite Ql (U) Negative Normal NEGATIVE [facility] Comment on above: Performed By: #### U A ####[facility] Yeslqjople4899[address] [place], [place] [address]Dr. Airam Tripathi pH (U) 6.0 [pH] Normal 5-9 [facility] Comment on above: Performed By: #### U A ####[facility] Ucyhdijtkc308[address] [place], [place] [address]Dr. Airam Tripathi SPEC GRAVITY 1.010 Normal 1.005-<=1. 025 [facility] Comment on above: Performed By: #### U A ####[facility] Yvxrbwtuyq566[address] [place], [place] [address]Dr. Airam Tripathi UA PROTEIN Negative Normal NEGATIVE/ TRACE [facility] Comment on above: Performed By: #### U A ####[facility] Cndjnmvwxc8139 [place] [address]Dr. Airam Tripathi Urobilinogen Qn (U) 0.2 {Ligia'U}/dL Normal 0.2 - 1. 0 [facility] Comment on above: Performed By: #### U A ####[facility] Xwhnwmzutb2231 [place] [address]Dr. Airam Tripathi URINE T PROTEIN CREAT RATIOo n 04-08-2022 UR PROT CREAT RAT 0.32 Normal [facility] Comment on above: Performed By: #### U RTPCR ####[facility] Ftxctqhzin006[address] [place], [place] [address]Dr. Airam Tripathi UR TOTAL PROTEIN <6.0 Normal <=12.0 [facility] Comment on above: Performed By: #### U RTPCR ####[facility] Cvlhbtdzzs[address] [place], [place] [address]Dr. Airam Tripathi URINE CREAT 18.75 mg/dL Critically low 20.00-300. 00 [facility] Comment on above: Performed By: #### U RTPCR ####[facility] Lbczajoxiu244[address] [place], [place] [address]Dr. Airam Tripathi FERRITINon 04-06-2022 Ferritin [Mass/Vol] 99.0 ng/mL Normal 8.0-252.0 [facility] Comment on above: Performed By: #### F ETIBC, VITAD, FERR ####[facility] Qfxjvpndmg2985[address] [place], [place] [address]Dr. Airam Tripathi IRON AND TIBCon 04-06-2022 % SATURATION 15.4 % Normal [facility] Comment on above: Performed By: #### F ETIBC, VITAD, FERR ####[facility] Nyvfupbain485[address] [place], [place] [address]Dr. Airam Tripathi Iron [Mass/Vol] 43.0 ug/dL Critically low 50.0-170.0 [facility] Comment on above: Performed By: #### F ETIBC, VITAD, FERR ####[facility] Uukzbdnbmo[address] [place], [place] [address]Dr. Airam Tripathi TIBC DIRECT 280.0 ug/dL Normal 250.0-450. 0 [facility] Comment on above: Performed By: #### F ETIBC, VITAD, FERR ####[facility] Djtvxjeqzp7034 [place] [address]Dr. Airam Tripathi PROF 14(COMP METB)on 04-06- 022 Albumin [Mass/Vol] 3.2 g/dL Critically low 3.4-5.0 [facility] Comment on above: Performed By: #### C MP, URIC ####[facility] Jonypfhagr17[address] [place] [address]Dr. Airam Tripathi Albumin/Globulin [Mass ratio] 1.0 {ratio} Normal [facility] Comment on above: Performed By: #### C MP, URIC ####[facility] Cezmgcxynb350[address] [place], [place] [address]Dr. Airam Tripathi ALP [Catalytic activity/Vol] 118 U/L Critically high 46-116 [facility] Comment on above: Performed By: #### C MP, URIC ####[facility] Gxdwlxnrxy7682 [place] [address]Dr. Airam Tripathi ALT [Catalytic activity/Vol] 24 U/L Normal 14-59 [facility] Comment on above: Performed By: #### C MP, URIC ####[facility] Iyzqdevypk3304 [place] [address]Dr. Airam Tripathi Anion gap [Moles/Vol] 14.4 mmol/L Normal [facility] Comment on above: Performed By: #### C MP, URIC ####[facility] Tdxczcchqv957[address] [place], [place] [address]Dr. Airam Tripathi AST [Catalytic activity/Vol] 21 U/L Normal 15-37 [facility] Comment on above: Performed By: #### C MP, URIC ####[facility] Oiupdqjrtm5592 [place] [address]Dr. Airam Tripathi Bilirubin [Mass/Vol] 0.3 mg/dL Normal 0.2-1.0 [facility] Comment on above: Performed By: #### C MP, URIC ####[facility] Dzmkjnwbeh5271 [place] [id number]. Airam Tripathi Calcium [Mass/Vol] 8.0 mg/dL Critically low 8.5-10.1 [facility] Comment on above: Performed By: #### C MP, URIC ####[facility] Jjuiywixfu4925 [place] [address]Dr. Airam Tripathi Chloride [Moles/Vol] 98 mmol/L Normal 98-107 [facility] Comment on above: Performed By: #### C MP, URIC ####[facility] Infjxjnylq2285 [place] [address]Dr. Airam Tripathi CO2 [Moles/Vol] 22.0 mmol/L Normal 21.0-32.0 [facility] Comment on above: Performed By: #### C MP, URIC ####[facility] Zqttvoxxwd430[address] [place], [place] [address]Dr. Airam Tripathi Creatinine [Mass/Vol] 1.86 mg/dL Critically high 0.55-1.02 [facility] Comment on above: Performed By: #### C MP, URIC ####[facility] Gqktadydgq8570[address] [place], [place] [address]Dr. Airam Tripathi EGFR-AF ARGENTINE 33 mL/min/1.73m2 Critically low >=60 [facility] Comment on above: Performed By: #### C MP, URIC ####[facility] Ycdicqqxxx5726[address] [place], [place] [address]Dr. Airam Tripathi EGFR-NON AF ARGENTINE 28 mL/min/1.73m2 Critically low >=60 [facility] Comment on above: Performed By: #### C MP, URIC ####[facility] Brucrigpdn7872 [place] [address]Dr. Airam Tripathi Globulin (S) [Mass/Vol] 3.1 g/dL Normal [facility] Comment on above: Performed By: #### C MP, URIC ####[facility] Rvgqmzbivr045[address] [place], [place] [address]Dr. Airam Tripathi Glucose [Mass/Vol] 93 mg/dL Normal 74-106 [facility] Comment on above: Performed By: #### C MP, URIC ####[facility] Ezwymtykkk432[address] [place], [place] [address]Dr. Airam Tripathi Potassium [Moles/Vol] 4.4 mmol/L Normal 3.5-5.1 [facility] Comment on above: Performed By: #### C MP, URIC ####[facility] Armtpgbaqo317[address] [place], [place] [address]Dr. Airam Tripathi Protein [Mass/Vol] 6.3 g/dL Critically low 6.4-8.2 [facility] Comment on above: Performed By: #### C MP, URIC ####[facility] Kvcgtwdblh023[address] [place], [place] [address]Dr. Airam Tripathi Sodium [Moles/Vol] 130 mmol/L Critically low 136-145 [facility] Comment on above: Performed By: #### C MP, URIC ####[facility] Pnhfsdilbw0330[address] [place], [place] [address]Dr. Airam Tripathi Urea nitrogen [Mass/Vol] 49.0 mg/dL Critically high 7.0-18.0 [facility] Comment on above: Performed By: #### C MP, URIC ####[facility] Omhuuwyhwa767[address] [place], [place] [address]Dr. Airam Tripathi Urea nitrogen/Creatinine [Mass ratio] 26.3 mg/mg Normal [facility] Comment on above: Performed By: #### C MP, URIC ####[facility] Alqbdiauit0050[address] [place], [place] [address]Dr. Airam Tripathi URIC ACID SERUMon 04-06-2022 Urate [Mass/Vol] 6.5 mg/dL Critically high 2.6-6.0 [facility] Comment on above: Performed By: #### C MP, URIC ####[facility] Kmxjpmtabj878[address] [place], [place] [address]Dr. Airam Tripathi VITAMIN D 25 OHon 04-06-2022 VIT D 25-OH 74.5 ng/mL Normal [facility] Comment on above: Performed By: #### F ETIBC, VITAD, FERR ####[facility] Kaacnnjrhs613[address] [place], [place] [address]Dr. Selenaneil Deuce VIT D RANGES SEE BELOW Normal [facility] Comment on above: Result Comment: <20 ng/mL Vit D deficient 20 - <30 ng/mL Vit D insufficient 30 - 100 ng/mL Vit D sufficient >100 ng/mL Potential Toxicity Performed By: #### F ETIBC, VITAD, FERR ####[facility] Jjqthzgveo2565[address] [place], [place] [address]Dr. Airam Tripathi OSMOLALITYon 04-01-2022 Osmolality [Osmolality] 284 mosm/kg Normal 275-295 [facility] Comment on above: Performed By: #### O SMO ####[facility] Dlsqniribq9577[address] [place], [place] [address]Dr. Airam Tripathi CBC AUTO DIFFon 03-31-2022 BASO # 0.0 103/ul Normal 0.0-0.1 [facility] Comment on above: Performed By: #### C BC ####[facility] Lamzjzvsve1810[address] [place], [place] [address]Dr. Airam Tripathi Basophils/100 WBC (Bld) 0.3 % Normal 0.2-2.0 [facility] Comment on above: Performed By: #### C BC ####[facility] Uatmbvpvjw549[address] [place], [place] [address]DrKianna Tripathi EO # 0.1 103/ul Normal 0.0-0.7 [facility] Comment on above: Performed By: #### C BC ####[facility] Iwshxqdlmm3422[address] [place], [place] [address]DrKianna Tripathi Eosinophils/100 WBC (Bld) 2.0 % Normal 0.9-7.0 [facility] Comment on above: Performed By: #### C BC ####[facility] Esgbfapvgy5775[address] [place], [place] [address]Dr. Airam Tripathi Erythrocyte distribution width (RBC) [Ratio] 13.5 % Normal 11.0-15.0 [facility] Comment on above: Performed By: #### C BC ####[facility] Bylcrjfauh990[address] [place], [place] [address]DrKianna Tripathi Hematocrit (Bld) [Volume fraction] 32.5 % Critically low 36.0-48.0 [facility] Comment on above: Performed By: #### C BC ####[facility] Jymukjwgbq260[address] [place] [address]Dr. Airam Tripathi Hemoglobin (Bld) [Mass/Vol] 10.1 g/dL Critically low 12.0-16.0 [facility] Comment on above: Performed By: #### C BC ####[facility] Soxhmhhaij[address] [place], [place] [address]Dr. Selenaneil Tripathi IG # 0.03 10e3/ul Normal 0.00-0.03 [facility] Comment on above: Performed By: #### C BC ####[facility] Cpayamramj040[address] [place], [place] [address]Dr. Selenaneil Deuce IG % 0.4 % Normal 0.0-0.5 [facility] Comment on above: Performed By: #### C BC ####[facility] Xbgkuvflvu04[address] [place], [place] [address]Dr. Airam Deuce LYMPH # 1.6 103/ul Normal 1.2-3.8 [facility] Comment on above: Performed By: #### C BC ####[facility] Ahjlvcwsei83[address] [place], [place] [address]Dr. Airam Tripathi Lymphocytes/100 WBC (Bld) 22.6 % Normal 20.5-60.0 [facility] Comment on above: Performed By: #### C BC ####[facility] Mwvujtyaad276[address] [place], [place] [address]Dr. Airam Deuce MANUAL DIFF REQ NO Normal [facility] Comment on above: Performed By: #### C BC ####[facility] Dfkycxogks[address] [place], [place] [address]Dr. Airam Deuce MCH (RBC) [Entitic mass] 30.5 pg Normal 26.7-34.0 [facility] Comment on above: Performed By: #### C BC ####[facility] Zmpuksdtti[address] [place], [place] [address]Dr. Selenaneil Tripathi MCHC (RBC) [Mass/Vol] 31.1 g/dL Normal 29.9-35.2 [facility] [facility] Comment on above: Performed By: #### C BC ####[facility] [address] [place] [address]DrKianna Tripathi MCV (RBC) [Entitic vol] 98.2 fL Normal 81.0-99.0 [facility] Comment on above: Performed By: #### C BC ####[facility] Mfgjoabeaq[address] [place], [place] [address]DrKianna Tripathi MONO # 0.5 103/ul Normal 0.3-0.8 [facility] Comment on above: Performed By: #### C BC ####[facility] Mgjjqlwlbg675[address] [place], [place] [address]DrKianna Tripathi Monocytes/100 WBC (Bld) 7.3 % Normal 1.7-12.0 [facility] Comment on above: Performed By: #### C BC ####[facility] Hnnratwcgs65[address] [place], [place] [address]DrKianna Tripathi NEUT # 4.7 103/ul Normal 1.4-6.5 [facility] Comment on above: Performed By: #### C BC ####[facility] Xjddeotvxk6955[address] [place], [place] [address]DrKianna Tripathi Neutrophils/100 WBC (Bld) 67.4 % Normal 43.0-75.0 [facility] Comment on above: Performed By: #### C BC ####[facility] Sialbybtom12[address] [place], [place] [address]DrKianna Tripathi Platelet mean volume (Bld) [Entitic vol] 9.5 fL Normal 9.5-13.5 [facility] Comment on above: Performed By: #### C BC ####[facility] Vfzbvrmeaj9025[address] [place], [place] [address]DrKianna Tripathi PLT 273 103/ul Normal 150-450 [facility] Comment on above: Performed By: #### C BC ####[facility] Zvptzqnjzl7904[address] [place], [place] [address]DrKianna Tripathi RBC 3.31 106/ul Critically low 4.20-5.40 [facility] Comment on above: Performed By: #### C BC ####[facility] [address] [address]Dr. Airam Tripathi WBC 7.0 103/ul Normal 4.0-11.0 [facility] Comment on above: Performed By: #### C BC ####[facility] Faoxthsntn168[address] [place], [place] [address]Dr. Airam Tripathi PROF 14(COMP METB)on 022 Albumin [Mass/Vol] 3.4 g/dL Normal 3.4-5.0 [facility] Comment on above: Performed By: #### C MP ####[facility] Oekbbvwaqs0332[address] [place], [place] [address]Dr. Airam Tripathi Albumin/Globulin [Mass ratio] 1.1 {ratio} Normal [facility] Comment on above: Performed By: #### C MP ####[facility] Ddpmyfepsx2280[address] [place], [place] [address]Dr. Airam Tripathi ALP [Catalytic activity/Vol] 107 U/L Normal 46-116 [facility] Comment on above: Performed By: #### C MP ####[facility] Xavczzqbxh059[address] [place], [place] [address]Dr. Airam Tripathi ALT [Catalytic activity/Vol] 22 U/L Normal 14-59 [facility] Comment on above: Performed By: #### C MP ####[facility] Ephaxrtuvz2868[address] [place], [place] [address]Dr. Airam Tripathi Anion gap [Moles/Vol] 6.8 mmol/L Normal [facility] Comment on above: Performed By: #### C MP ####[facility] Fmmfvvpred068[address] [place], [place] [address]Dr. Airam Tripathi AST [Catalytic activity/Vol] 23 U/L Normal 15-37 [facility] Comment on above: Performed By: #### C MP ####[facility] Tpglcnsawt65[address] [place], [place] [address]Dr. Airam Tripathi Bilirubin [Mass/Vol] 0.2 mg/dL Normal 0.2-1.0 [facility] Comment on above: Performed By: #### C MP ####[facility] [address] [address]Dr. Airam Tripathi Calcium [Mass/Vol] 8.4 mg/dL Critically low 8.5-10.1 [facility] Comment on above: Performed By: #### C MP ####[facility] [address]auicha[address] [address]Dr. Airam Tripathi Chloride [Moles/Vol] 100 mmol/L Normal 98-107 [facility] Comment on above: Performed By: #### C MP ####[facility] Zjvpzmhslk8414[address] [place], [place] [address]Dr. Airam Tripathi CO2 [Moles/Vol] 29.9 mmol/L Normal 21.0-32.0 [facility] Comment on above: Performed By: #### C MP ####[facility] Dlnkwypaqr2226[address] [place], [place] [address]Dr. Airam Tripathi Creatinine [Mass/Vol] 1.20 mg/dL Critically high 0.55-1.02 [facility] Comment on above: Performed By: #### C MP ####[facility] Mhpmbeuqtd328[address] [place], [place] [address]Dr. Airam Tripathi EGFR-AF ARGENTINE 56 mL/min/1.73m2 Critically low >=60 [facility] Comment on above: Performed By: #### C MP ####[facility] Hphipaufyw804[address] [place], [place] [address]Dr. Airam Deuce EGFR-NON AF ARGENTINE 46 mL/min/1.73m2 Critically low >=60 [facility] Comment on above: Performed By: #### C MP ####[facility] Jleqxogpkh848[address] [place], [place] [address]Dr. Airam Deuce Globulin (S) [Mass/Vol] 3.0 g/dL Normal [facility] Comment on above: Performed By: #### C MP ####[facility] Viriaipsnd639[address] [place], [place] [address]Dr. Airam Deuce Glucose [Mass/Vol] 57 mg/dL Critically low 74-106 [facility] Comment on above: Performed By: #### C MP ####[facility] [address]ffg[address] [place] [address]Dr. Airam Tripathi Potassium [Moles/Vol] 3.7 mmol/L Normal 3.5-5.1 [facility] Comment on above: Performed By: #### C MP ####[facility] Ylwyyytnvl179[address] [place], [place] [address]Dr. Airam Tripathi Protein [Mass/Vol] 6.4 g/dL Normal 6.4-8.2 [facility] Comment on above: Performed By: #### C MP ####[facility] Xmanmwhelt950[address] [place], [place] [address]Dr. Airam Tripathi Sodium [Moles/Vol] 133 mmol/L Critically low 136-145 [facility] Comment on above: Performed By: #### C MP ####[facility] Dofklmtqtt565[address] [place], [place] [address]Dr. Airam Tripathi Urea nitrogen [Mass/Vol] 39.0 mg/dL Critically high 7.0-18.0 [facility] Comment on above: Performed By: #### C MP ####[facility] Deoeqyscfd4087[address] [place], [place] [address]Dr. Airam Tripathi Urea nitrogen/Creatinine [Mass ratio] 32.5 mg/mg Normal [facility] Comment on above: Performed By: #### C MP ####[facility] Jcsnuvphmu7950[address] [place], [place] [address]Dr. Airam Tripathi OSMOLALITYon 03-24-2022 Osmolality [Osmolality] 285 mosm/kg Normal 275-295 [facility] Comment on above: Performed By: #### O SMO ####[facility] Runwsifxqs485[address] [place], [place] [address]Dr. Airam Tripathi CBC AUTO DIFFon 03-22-2022 BASO # 0.0 103/ul Normal 0.0-0.1 [facility] Comment on above: Performed By: #### C BC ####[facility] Knfwbuxtua887[address] [place], [place] [address]Dr. Airam Tripathi Basophils/100 WBC (Bld) 0.4 % Normal 0.2-2.0 [facility] Comment on above: Performed By: #### C BC ####[facility] Ldedmvfsym423[address] [place], [place] [address]Dr. Airam Tripathi EO # 0.2 103/ul Normal 0.0-0.7 [facility] Comment on above: Performed By: #### C BC ####[facility] Hireqdykky3716[address] [place], [place] [address]Dr. Airam Tripathi Eosinophils/100 WBC (Bld) 2.3 % Normal 0.9-7.0 [facility] Comment on above: Performed By: #### C BC ####[facility] Raknytvvvx3577[address] [place], [place] [address]Dr. Airam Tripathi Erythrocyte distribution width (RBC) [Ratio] 13.9 % Normal 11.0-15.0 [facility] Comment on above: Performed By: #### C BC ####[facility] Wpkwrevflk2048[address] [place], [place] [address]Dr. Airam Tripathi Hematocrit (Bld) [Volume fraction] 32.6 % Critically low 36.0-48.0 [facility] Comment on above: Performed By: #### C BC ####[facility] Bzyfkxcide712[address] [place], [place] [address]Dr. Airam Tripathi Hemoglobin (Bld) [Mass/Vol] 10.3 g/dL Critically low 12.0-16.0 [facility] Comment on above: Performed By: #### C BC ####[facility] Medwqylcoe2215[address] [place], [place] [address]Dr. Airam Tripathi IG # 0.11 10e3/ul Critically high 0.00-0.03 [facility] Comment on above: Performed By: #### C BC ####[facility] Lczpajnbkh35299[address] [place], [place] [address]Dr. Airam Tripathi IG % 1.4 % Critically high 0.0-0.5 [facility] Comment on above: Performed By: #### C BC ####[facility] Klmzsefzkw501[address] [place], [place] [address]Dr. Airam Tripathi LYMPH # 1.3 103/ul Normal 1.2-3.8 [facility] Comment on above: Performed By: #### C BC ####[facility] [address]qi[address] [place] [address]Dr. Airam Tripathi Lymphocytes/100 WBC (Bld) 15.9 % Critically low 20.5-60.0 [facility] Comment on above: Performed By: #### C BC ####[facility] [address] [place] [address]Dr. Airam Tripathi MANUAL DIFF REQ NO Normal [facility] Comment on above: Performed By: #### C BC ####[facility] [address]cuam[address] [address]Dr. Airam Tripathi MCH (RBC) [Entitic mass] 30.7 pg Normal 26.7-34.0 [facility] Comment on above: Performed By: #### C BC ####[facility] Uxekxggepj769[address] [place], [place] [address]Dr. Airam Tripathi MCHC (RBC) [Mass/Vol] 31.6 g/dL Normal 29.9-35.2 [facility] Comment on above: Performed By: #### C BC ####[facility] Wfrthgwoax498[address] [place], [place] [address]Dr. Airam Tripathi MCV (RBC) [Entitic vol] 97.0 fL Normal 81.0-99.0 [facility] Comment on above: Performed By: #### C BC ####[facility] Yjnbhmpgzz713[address] [place], [place] [address]Dr. Airam Tripathi MONO # 0.6 103/ul Normal 0.3-0.8 [facility] Comment on above: Performed By: #### C BC ####[facility] Zoivipmmdi570[address] [place], [place] [address]Dr. Airam Tripathi Monocytes/100 WBC (Bld) 6.9 % Normal 1.7-12.0 [facility] Comment on above: Performed By: #### C BC ####[facility] Negxfhligt7660[address] [place], [place] [address]Dr. Airam Tripathi NEUT # 5.9 103/ul Normal 1.4-6.5 [facility] Comment on above: Performed By: #### C BC ####[facility] [address]udcc[address] [place] [id number] Waltersneil Deuce Neutrophils/100 WBC (Bld) 73.1 % Normal 43.0-75.0 [facility] Comment on above: Performed By: #### C BC ####[facility] F[address]qzhl[address] [place] [address]DrKianna Tripathi Platelet mean volume (Bld) [Entitic vol] 9.5 fL Normal 9.5-13.5 [facility] Comment on above: Performed By: #### C BC ####[facility] Oeoigncfdd513[address] [place], [place] [address]DrKianna Tripathi PLT 313 103/ul Normal 150-450 [facility] Comment on above: Performed By: #### C BC ####[facility] Uqhspsdory0416[address] [place], [place] [address]DrKianna Tripathi RBC 3.36 106/ul Critically low 4.20-5.40 [facility] Comment on above: Performed By: #### C BC ####[facility] Tfrdvgorve228[address] [place], [place] [address]DrKianna Tripathi WBC 8.1 103/ul Normal 4.0-11.0 [facility] Comment on above: Performed By: #### C BC ####[facility] Dnniectyom219[address] [place], [place] [address]Dr. Airam Tripathi PROF 14(COMP METB)on 022 Albumin [Mass/Vol] 3.3 g/dL Critically low 3.4-5.0 [facility] Comment on above: Performed By: #### C MP ####[facility] Ftzfwozdug567[address] [place], [place] [address]DrKianna Tripathi Albumin/Globulin [Mass ratio] 1.0 {ratio} Normal [facility] Comment on above: Performed By: #### C MP ####[facility] Ztpfsslmkz1501[address] [place], [place] [address]Dr. Walterslan Tripathi ALP [Catalytic activity/Vol] 113 U/L Normal 46-116 [facility] Comment on above: Performed By: #### C MP ####[facility] Ir[address]ftaowcu[address] [place] [address]Dr. Airam Tripathi ALT [Catalytic activity/Vol] 21 U/L Normal 14-59 [facility] Comment on above: Performed By: #### C MP ####[facility] Hwzdwxhdoy068[address] [place], [place] [address]Dr. Airam Deuce Anion gap [Moles/Vol] 12.2 mmol/L Normal [facility] Comment on above: Performed By: #### C MP ####[facility] Iketalohqe922193 [address] [place], [place] [address]Dr. Airam Deuce AST [Catalytic activity/Vol] 21 U/L Normal 15-37 [facility] Comment on above: Performed By: #### C MP ####[facility] Oilratqkpx39039[address] [place], [place] [address]Dr. Airam Deuce Bilirubin [Mass/Vol] 0.2 mg/dL Normal 0.2-1.0 [facility] Comment on above: Performed By: #### C MP ####[facility] Gfyqmbboon8713[address] [place], [place] [address]Dr. Airam Deuce Calcium [Mass/Vol] 8.4 mg/dL Critically low 8.5-10.1 [facility] Comment on above: Performed By: #### C MP ####[facility] Acztzzlynk9420[address] [place], [place] [address]Dr. Airam Deuce Chloride [Moles/Vol] 103 mmol/L Normal 98-107 [facility] Comment on above: Performed By: #### C MP ####[facility] Bslufifshf1027[address] [place], [place] [address]Dr. Selenaneil Tripathi CO2 [Moles/Vol] 24.4 mmol/L Normal 21.0-32.0 [facility] Comment on above: Performed By: #### C MP ####[facility] Rwugqyagro334[address] [place], [place] [address]Dr. Yineil Tripathi Creatinine [Mass/Vol] 1.11 mg/dL Critically high 0.55-1.02 [facility] Comment on above: Performed By: #### C MP ####[facility] F[address]vuejdn[address] [place] [address]Dr. Airam Deuce EGFR-AF ARGENTINE >60 Normal >=60 [facility] Comment on above: Performed By: #### C MP ####[facility] M[address]ynqzgfw[address] [place] [address]Dr. Airam Tripathi EGFR-NON AF ARGENTINE 50 mL/min/1.73m2 Critically low >=60 [facility] Comment on above: Performed By: #### C MP ####[facility] Opcqsjntwx136[address] [place], [place] [address]Dr. Airam Tripathi Globulin (S) [Mass/Vol] 3.2 g/dL Normal [facility] Comment on above: Performed By: #### C MP ####[facility] Wteyimlqti180[address] [place], [place] [address]Dr. Airam Tripathi Glucose [Mass/Vol] 84 mg/dL Normal 74-106 [facility] Comment on above: Performed By: #### C MP ####[facility] Prkakgocdp265[address] [place], [place] [address]Dr. Airam Tripathi Potassium [Moles/Vol] 4.6 mmol/L Normal 3.5-5.1 [facility] Comment on above: Performed By: #### C MP ####[facility] Hwztmbukwh95[address] [place], [place] [address]Dr. Airam Tripathi Protein [Mass/Vol] 6.5 g/dL Normal 6.4-8.2 [facility] Comment on above: Performed By: #### C MP ####[facility] Muvatiepxt4688[address] [place], [place] [address]Dr. Airam Tripathi Sodium [Moles/Vol] 135 mmol/L Critically low 136-145 [facility] Comment on above: Performed By: #### C MP ####[facility] Oxmqebkcks0634[address] [place], [place] [address]Dr. Airam Tripathi Urea nitrogen [Mass/Vol] 39.0 mg/dL Critically high 7.0-18.0 [facility] Comment on above: Performed By: #### C MP ####[facility] Tzqjhiiyna0565[address] [place], [place] [address]Dr. Airam Tripathi Urea nitrogen/Creatinine [Mass ratio] 35.1 mg/mg Normal [facility] Comment on above: Performed By: #### C MP ####[facility] Hazgcutiyu075[address] [place], [place] [address]Dr. Airam Tripathi OSMOLALITYon 03-17-2022 Osmolality [Osmolality] 277 mosm/kg Normal 275-295 [facility] Comment on above: Performed By: #### O SMO ####[facility] Rljfzdoxho930[address] [place], [place] [address]Dr. Airam Tripathi CBC AUTO DIFFon 03-15-2022 BASO # 0.0 103/ul Normal 0.0-0.1 [facility] Comment on above: Performed By: #### C BC ####[facility] Aojhnuwuyo288[address] [place], [place] [address]Dr. Airam Tripathi Basophils/100 WBC (Bld) 0.4 % Normal 0.2-2.0 [facility] Comment on above: Performed By: #### C BC ####[facility] Addsoiimbl495[address] [place], [place] [address]DrKianna Tripathi EO # 0.1 103/ul Normal 0.0-0.7 [facility] Comment on above: Performed By: #### C BC ####[facility] Rqqovrbdxi511[address] [place], [place] [address]DrKianna Tripathi Eosinophils/100 WBC (Bld) 2.4 % Normal 0.9-7.0 [facility] Comment on above: Performed By: #### C BC ####[facility] Yprqnvesed2650[address] [place], [place] [address]Dr. Airam Tripathi Erythrocyte distribution width (RBC) [Ratio] 13.9 % Normal 11.0-15.0 [facility] Comment on above: Performed By: #### C BC ####[facility] Nysqvbrvfg340[address] [place], [place] [address]Dr. Airam Tripathi Hematocrit (Bld) [Volume fraction] 31.2 % Critically low 36.0-48.0 [facility] Comment on above: Performed By: #### C BC ####[facility] Rwcnlzapmp90[address] [place] [address]DrKianna Airam Tripathi Hemoglobin (Bld) [Mass/Vol] 9.9 g/dL Critically low 12.0-16.0 [facility] Comment on above: Performed By: #### C BC ####[facility] Mquqsztgfg[address] [place], [place] [address]DrKianna Selenaneil Tripathi IG # 0.03 10e3/ul Normal 0.00-0.03 [facility] Comment on above: Performed By: #### C BC ####[facility] Dzzbmgpeua967[address] [place], [place] [address]DrKianna Selenaneil Tripathi IG % 0.6 % Critically high 0.0-0.5 [facility] Comment on above: Performed By: #### C BC ####[facility] Csqjsiqdiq983[address] [place], [place] [address]DrKianna Selenaneil Tripathi LYMPH # 1.5 103/ul Normal 1.2-3.8 [facility] Comment on above: Performed By: #### C BC ####[facility] Dtxlqvbkgt619[address] [place], [place] [address]DrKianna Selenaneil Tripathi Lymphocytes/100 WBC (Bld) 29.4 % Normal 20.5-60.0 [facility] Comment on above: Performed By: #### C BC ####[facility] Hpgflacqgl714[address] [place], [place] [address]DrKianna Selenaneil Tripathi MANUAL DIFF REQ NO Normal [facility] Comment on above: Performed By: #### C BC ####[facility] Wvicpmodnr532[address] [place], [place] [address]DrKianna Tripathi MCH (RBC) [Entitic mass] 30.5 pg Normal 26.7-34.0 [facility] Comment on above: Performed By: #### C BC ####[facility] Omtbwlzepn48119[address] [place], [place] [address]DrKianna Tripathi MCHC (RBC) [Mass/Vol] 31.7 g/dL Normal 29.9-35.2 [facility] Comment on above: Performed By: #### C BC ####[facility] [address]uf[address]xvotk[address] [place] [address]DrKianna Tripathi MCV (RBC) [Entitic vol] 96.0 fL Normal 81.0-99.0 [facility] Comment on above: Performed By: #### C BC ####[facility] Mecbbxkfws3723[address] [place], [place] [address]DrKianna Tripathi MONO # 0.4 103/ul Normal 0.3-0.8 [facility] Comment on above: Performed By: #### C BC ####[facility] Fuwkkagzcf556[address] [place], [place] [address]DrKianna Tripathi Monocytes/100 WBC (Bld) 7.0 % Normal 1.7-12.0 [facility] Comment on above: Performed By: #### C BC ####[facility] Plogshloyo3555[address] [place], [place] [address]DrKianna Tirpathi NEUT # 3.0 103/ul Normal 1.4-6.5 [facility] Comment on above: Performed By: #### C BC ####[facility] Oockrzfjxt770[address] [place], [place] [address]DrKianna Tripathi Neutrophils/100 WBC (Bld) 60.2 % Normal 43.0-75.0 [facility] Comment on above: Performed By: #### C BC ####[facility] Ztrlxqoyrb929[address] [place], [place] [address]DrKianna Tripathi Platelet mean volume (Bld) [Entitic vol] 9.6 fL Normal 9.5-13.5 [facility] Comment on above: Performed By: #### C BC ####[facility] Jutekdfgyi8595[address] [place], [place] [address]DrKianna Tripathi PLT 258 103/ul Normal 150-450 [facility] Comment on above: Performed By: #### C BC ####[facility] Aqommrbbeo655[address] [place], [place] [address]DrKianna Tripathi RBC 3.25 106/ul Critically low 4.20-5.40 [facility] Comment on above: Performed By: #### C BC ####[facility] Nublnfjmvh728[address] [place], [place] [address]Dr. Airam Tripathi WBC 5.0 103/ul Normal 4.0-11.0 [facility] Comment on above: Performed By: #### C BC ####[facility] Aihwbwrydb6036[address] [place], [place] [address]Dr. Airam Tripathi PROF 14(COMP METB)on 022 Albumin [Mass/Vol] 3.3 g/dL Critically low 3.4-5.0 [facility] Comment on above: Performed By: #### C MP ####[facility] Xpdtfyphtr6524[address] [place], [place] [address]Dr. Airam Tripathi Albumin/Globulin [Mass ratio] 1.1 {ratio} Normal [facility] Comment on above: Performed By: #### C MP ####[facility] Ntkhjyfncv415[address] [place], [place] [address]Dr. Airam Tripathi ALP [Catalytic activity/Vol] 106 U/L Normal 46-116 [facility] Comment on above: Performed By: #### C MP ####[facility] Pvxhzutxdc0134[address] [place], [place] [address]Dr. Airam Tripathi ALT [Catalytic activity/Vol] 22 U/L Normal 14-59 [facility] Comment on above: Performed By: #### C MP ####[facility] Anntzgyboc2264[address] [place], [place] [address]Dr. Airam Tripathi Anion gap [Moles/Vol] 11.4 mmol/L Normal [facility] Comment on above: Performed By: #### C MP ####[facility] Mghrbqrqmw2026[address] [place], [place] [address]Dr. Airam Tripathi AST [Catalytic activity/Vol] 22 U/L Normal 15-37 [facility] Comment on above: Performed By: #### C MP ####[facility] Vnpuknxduc1144[address] [place], [place] [address]Dr. Airam Tripathi Bilirubin [Mass/Vol] 0.3 mg/dL Normal 0.2-1.0 [facility] Comment on above: Performed By: #### C MP ####[facility] Hrfdnlzvmo787[address] [place], [place] [address]Dr. Airam Tripathi Calcium [Mass/Vol] 8.1 mg/dL Critically low 8.5-10.1 [facility] Comment on above: Performed By: #### C MP ####[facility] Mznwtruhzo1828[address] [place], [place] [address]Dr. Airam Tripathi Chloride [Moles/Vol] 100 mmol/L Normal 98-107 [facility] Comment on above: Performed By: #### C MP ####[facility] Yujpjiycqg817[address] [place], [place] [address]Dr. Airam Tripathi CO2 [Moles/Vol] 25.6 mmol/L Normal 21.0-32.0 [facility] Comment on above: Performed By: #### C MP ####[facility] Uzdseytawi430[address] [place], [place] [address]Dr. Airam Tripathi Creatinine [Mass/Vol] 1.21 mg/dL Critically high 0.55-1.02 [facility] Comment on above: Performed By: #### C MP ####[facility] Zewrkajxhf469[address] [place], [place] [address]Dr. Airam Tripathi EGFR-AF ARGENTINE 55 mL/min/1.73m2 Critically low >=60 [facility] Comment on above: Performed By: #### C MP ####[facility] Qxabruxngj938[address] [place], [place] [address]Dr. Airam Tripathi EGFR-NON AF ARGENTINE 45 mL/min/1.73m2 Critically low >=60 [facility] Comment on above: Performed By: #### C MP ####[facility] Ybkftfbbfo4980[address] [place], [place] [address]Dr. Airam Tripathi Globulin (S) [Mass/Vol] 3.0 g/dL Normal [facility] Comment on above: Performed By: #### C MP ####[facility] Fkpecbhzca852[address] [place], [place] [address]Dr. Airam Tripathi Glucose [Mass/Vol] 84 mg/dL Normal 74-106 [facility] Comment on above: Performed By: #### C MP ####[facility] Mwjinpnaih10[address] [place], [place] [address]Dr. Airam Tripathi Potassium [Moles/Vol] 4.0 mmol/L Normal 3.5-5.1 [facility] Comment on above: Performed By: #### C MP ####[facility] Bixpzgtxvk820[address] [place], [place] [address]DrKianna Tripathi Protein [Mass/Vol] 6.3 g/dL Critically low 6.4-8.2 [facility] Comment on above: Performed By: #### C MP ####[facility] Njttxjzuwp[address] [place], [place] [address]DrKianna Tripathi Sodium [Moles/Vol] 133 mmol/L Critically low 136-145 [facility] Comment on above: Performed By: #### C MP ####[facility] Cygdfbjglq000[address] [place], [place] [address]DrKianna Tripathi Urea nitrogen [Mass/Vol] 29.0 mg/dL Critically high 7.0-18.0 [facility] Comment on above: Performed By: #### C MP ####[facility] Vhfekwvtcy58[address] [place], [place] [address]DrKianna Tripathi Urea nitrogen/Creatinine [Mass ratio] 24.0 mg/mg Normal [facility] Comment on above: Performed By: #### C MP ####[facility] Dslvwnzwpz[address] [place], [place] [address]DrKianna Tripathi OSMOLALITYon 03-12-2022 Osmolality [Osmolality] 285 mosm/kg Normal 275-295 [facility] Comment on above: Performed By: #### O SMO ####[facility] Zxuysrefdq[address] [place], [place] [address]DrKianna Tripathi CBC AUTO DIFFon 03-10-2022 BASO # 0.0 103/ul Normal 0.0-0.1 [facility] Comment on above: Performed By: #### C BC ####[facility] Ywpkavkflo[address] [place], [place] [address]DrKianna Tripathi Basophils/100 WBC (Bld) 0.3 % Normal 0.2-2.0 [facility] Comment on above: Performed By: #### C BC ####[facility] Efezathljm677[address] [place], [place] [address]Dr. Airam Tripathi EO # 0.2 103/ul Normal 0.0-0.7 [facility] Comment on above: Performed By: #### C BC ####[facility] Veppajvjyd76[address] [place], [place] [address]Dr. Airam Tripathi Eosinophils/100 WBC (Bld) 2.7 % Normal 0.9-7.0 [facility] Comment on above: Performed By: #### C BC ####[facility] Ulykeeorcy697[address] [place], [place] [address]Dr. Airam Tripathi Erythrocyte distribution width (RBC) [Ratio] 14.4 % Normal 11.0-15.0 [facility] Comment on above: Performed By: #### C BC ####[facility] Wftddjxwoy96[address] [place], [place] [address]Dr. Airam Tripathi Hematocrit (Bld) [Volume fraction] 32.5 % Critically low 36.0-48.0 [facility] Comment on above: Performed By: #### C BC ####[facility] Wvxjdlqvcc[address] [place], [place] [address]Dr. Airam Tripathi Hemoglobin (Bld) [Mass/Vol] 10.1 g/dL Critically low 12.0-16.0 [facility] Comment on above: Performed By: #### C BC ####[facility] Lpcsweogjr278[address] [place], [place] [address]Dr. Airam Tripathi IG # 0.03 10e3/ul Normal 0.00-0.03 [facility] Comment on above: Performed By: #### C BC ####[facility] Mdyuzcbkhx697[address] [place], [place] [address]Dr. Airam Tripathi IG % 0.4 % Normal 0.0-0.5 [facility] Comment on above: Performed By: #### C BC ####[facility] Naxifxlbjp[address] [place] [address]Tx. Airam Deuce LYMPH # 1.4 103/ul Normal 1.2-3.8 [facility] Comment on above: Performed By: #### C BC ####[facility] Mdpselesjl4[address] [place] [address]Dr. Airam Deuce Lymphocytes/100 WBC (Bld) 19.4 % Critically low 20.5-60.0 [facility] Comment on above: Performed By: #### C BC ####[facility] Crcmsvjxwh[address] [place] [address]Dr. Selenaneil Tripathi MANUAL DIFF REQ NO Normal [facility] Comment on above: Performed By: #### C BC ####[facility] Jpxnsanpkp1156 [place] [address]Dr. Ariam Deuce MCH (RBC) [Entitic mass] 30.6 pg Normal 26.7-34.0 [facility] Comment on above: Performed By: #### C BC ####[facility] Diyiyjsnco14[address] [place], [place] [address]Dr. Airam Deuce MCHC (RBC) [Mass/Vol] 31.1 g/dL Normal 29.9-35.2 [facility] Comment on above: Performed By: #### C BC ####[facility] Tcaiafumcd205[address] [place], [place] [address]Dr. Selenaneil Tripathi MCV (RBC) [Entitic vol] 98.5 fL Normal 81.0-99.0 [facility] Comment on above: Performed By: #### C BC ####[facility] Nvmqamprcl47[address] [place], [place] [address]Dr. Selenaneil Tripathi MONO # 0.5 103/ul Normal 0.3-0.8 [facility] Comment on above: Performed By: #### C BC ####[facility] Yplvvuopmn959[address] [place], [place] [address]Dr. Selenaneil Tripathi Monocytes/100 WBC (Bld) 6.7 % Normal 1.7-12.0 [facility] Comment on above: Performed By: #### C BC ####[facility] Evdjfqaelp2823[address] [place], [place] [address]Dr. Airam Tripathi NEUT # 5.2 103/ul Normal 1.4-6.5 [facility] Comment on above: Performed By: #### C BC ####[facility] Xdxqanssdy9[address] [place] [address]Dr. Airam Tripathi Neutrophils/100 WBC (Bld) 70.5 % Normal 43.0-75.0 [facility] Comment on above: Performed By: #### C BC ####[facility] Iclkwyoaxz0071 [place] [address]Dr. Airam Tripathi Platelet mean volume (Bld) [Entitic vol] 9.8 fL Normal 9.5-13.5 [facility] Comment on above: Performed By: #### C BC ####[facility] Zkejigiwut56[address] [place] [address]Dr. Airam Deuce PLT 277 103/ul Normal 150-450 [facility] Comment on above: Performed By: #### C BC ####[facility] Yidyjxsihr[address] [place], [place] [address]Dr. Airam Deuce RBC 3.30 106/ul Critically low 4.20-5.40 [facility] Comment on above: Performed By: #### C BC ####[facility] Oxekflccas253[address] [place], [place] [address]Dr. Airam Deuce WBC 7.4 103/ul Normal 4.0-11.0 [facility] Comment on above: Performed By: #### C BC ####[facility] Puxjfnccoy[address] [place] [address]DrKianna Tripathi PROF 14(COMP METB)on 022 Albumin [Mass/Vol] 3.6 g/dL Normal 3.4-5.0 [facility] Comment on above: Performed By: #### C MP ####[facility] Eshbyitlef3867[address] [place], [place] [address]DrKianna Waltersneil Deuce Albumin/Globulin [Mass ratio] 1.1 {ratio} Normal [facility] Comment on above: Performed By: #### C MP ####[facility] Stwnmfpyyd48[address] [place] [address]Dr. Airam Tripathi ALP [Catalytic activity/Vol] 112 U/L Normal 46-116 [facility] Comment on above: Performed By: #### C MP ####[facility] Ylgcwkhres4776 [place] [address]Dr. Airam Tripathi ALT [Catalytic activity/Vol] 26 U/L Normal 14-59 [facility] Comment on above: Performed By: #### C MP ####[facility] Bagtacvswa6373 [place] [address]Dr. Airam Deuce Anion gap [Moles/Vol] 12.0 mmol/L Normal [facility] Comment on above: Performed By: #### C MP ####[facility] Jnlwzzxvlu287[address] [place], [place] [address]Dr. Airam Tripathi AST [Catalytic activity/Vol] 25 U/L Normal 15-37 [facility] Comment on above: Performed By: #### C MP ####[facility] Nydrsnhwfw12[address] [place], [place] [address]Dr. Airam Deuce Bilirubin [Mass/Vol] 0.4 mg/dL Normal 0.2-1.0 [facility] Comment on above: Performed By: #### C MP ####[facility] Pncbmfmahu0440[address] [place], [place] [address]Dr. Airam Deuce Calcium [Mass/Vol] 8.9 mg/dL Normal 8.5-10.1 [facility] Comment on above: Performed By: #### C MP ####[facility] Kgnvindgin1325[address] [place], [place] [address]Dr. Airam Deuce Chloride [Moles/Vol] 101 mmol/L Normal 98-107 [facility] Comment on above: Performed By: #### C MP ####[facility] Slrflheatc657[address] [place], [place] [address]Dr. Airam Deuce CO2 [Moles/Vol] 24.0 mmol/L Normal 21.0-32.0 [facility] Comment on above: Performed By: #### C MP ####[facility] Wsdycnzwvm8875[address] [place], [place] [address]Dr. Airam Tripathi Creatinine [Mass/Vol] 1.51 mg/dL Critically high 0.55-1.02 [facility] Comment on above: Performed By: #### C MP ####[facility] Rdnewosqsa4617 [place] [address]Dr. Selenaneil Duece EGFR-AF ARGENTINE 43 mL/min/1.73m2 Critically low >=60 [facility] Comment on above: Performed By: #### C MP ####[facility] Pjjmriwjcs9606 [place] [address]Dr. Airam Tripathi EGFR-NON AF ARGENTINE 35 mL/min/1.73m2 Critically low >=60 [facility] Comment on above: Performed By: #### C MP ####[facility] Sqczfmojra334[address] [place], [place] [address]Dr. Airam Tripathi Globulin (S) [Mass/Vol] 3.2 g/dL Normal [facility] Comment on above: Performed By: #### C MP ####[facility] Aslucpdpda909[address] [place], [place] [address]Dr. Airam Tripathi Glucose [Mass/Vol] 82 mg/dL Normal 74-106 [facility] Comment on above: Performed By: #### C MP ####[facility] Bokzuhvsuv9435[address] [place], [place] [address]Dr. Airam Tripathi Potassium [Moles/Vol] 4.0 mmol/L Normal 3.5-5.1 [facility] Comment on above: Performed By: #### C MP ####[facility] Tzbukbpynl514[address] [place], [place] [address]Dr. Airam Tripathi Protein [Mass/Vol] 6.8 g/dL Normal 6.4-8.2 [facility] Comment on above: Performed By: #### C MP ####[facility] Lvxqyvzugs824[address] [place], [place] [address]Dr. Airam Tripathi Sodium [Moles/Vol] 133 mmol/L Critically low 136-145 [facility] Comment on above: Performed By: #### C MP ####[facility] Askmjvyxtq085[address] [place], [place] [address]Dr. Airam Tripathi Urea nitrogen [Mass/Vol] 37.0 mg/dL Critically high 7.0-18.0 [facility] Comment on above: Performed By: #### C MP ####[facility] Kcbsfbmsyf985[address] [place], [place] [address]Dr. Airam Tripathi Urea nitrogen/Creatinine [Mass ratio] 24.5 mg/mg Normal [facility] Comment on above: Performed By: #### C MP ####[facility] Cuzomgmlzt324[address] [place], [place] [address]Dr. Airam Tripathi OSMOLALITYon 03-07-2022 Osmolality [Osmolality] 284 mosm/kg Normal 275-295 [facility] Comment on above: Performed By: #### O SMO ####[facility] Oiougrgfim814[address] [place], [place] [address]Dr. Airam Tripathi CBC AUTO DIFFon 03-04-2022 BASO # 0.0 103/ul Normal 0.0-0.1 [facility] Comment on above: Performed By: #### C BC ####[facility] Zxkpmyoyby8705[address] [place], [place] [address]Dr. Airam Deuce Basophils/100 WBC (Bld) 0.3 % Normal 0.2-2.0 [facility] Comment on above: Performed By: #### C BC ####[facility] Plrkvifdax8627[address] [place], [place] [address]Dr. Airam Tripathi EO # 0.1 103/ul Normal 0.0-0.7 [facility] Comment on above: Performed By: #### C BC ####[facility] Uidjkmnord522[address] [place], [place] [address]Dr. Airam Deuce Eosinophils/100 WBC (Bld) 2.0 % Normal 0.9-7.0 [facility] Comment on above: Performed By: #### C BC ####[facility] Bddvptxiab0840[address] [place], [place] [address]Dr. Airam Tripathi Erythrocyte distribution width (RBC) [Ratio] 14.5 % Normal 11.0-15.0 [facility] Comment on above: Performed By: #### C BC ####[facility] Bzcewthkdz3232[address] [place], [place] [address]Dr. Airam Tripathi Hematocrit (Bld) [Volume fraction] 35.4 % Critically low 36.0-48.0 [facility] Comment on above: Performed By: #### C BC ####[facility] Zjljojvqaa9279 [place] [address]DrKianna Tripathi Hemoglobin (Bld) [Mass/Vol] 11.0 g/dL Critically low 12.0-16.0 [facility] Comment on above: Performed By: #### C BC ####[facility] Qbkvyiksjy5115 [place] [address]Dr. Airam Tripathi IG # 0.03 10e3/ul Normal 0.00-0.03 [facility] Comment on above: Performed By: #### C BC ####[facility] Amwtrmlwrc0970 [place] [address]Dr. Airam Tripathi IG % 0.4 % Normal 0.0-0.5 [facility] Comment on above: Performed By: #### C BC ####[facility] Cbcvbbtnrn425[address] [place], [place] [address]Dr. Airam Tripathi LYMPH # 1.7 103/ul Normal 1.2-3.8 [facility] Comment on above: Performed By: #### C BC ####[facility] Xxunfyjhcp4633 [place] [address]DrKianna Tripathi Lymphocytes/100 WBC (Bld) 23.8 % Normal 20.5-60.0 [facility] Comment on above: Performed By: #### C BC ####[facility] Ujwocxomil6738 [place] [address]DrKianna Tripathi MANUAL DIFF REQ NO Normal [facility] Comment on above: Performed By: #### C BC ####[facility] Vwcwmtxlhu007[address] [place], [place] [address]DrKianna Tripathi MCH (RBC) [Entitic mass] 30.0 pg Normal 26.7-34.0 [facility] Comment on above: Performed By: #### C BC ####[facility] Cypyozirrt2734[address] [place], [place] [address]Dr. Airam Tripathi MCHC (RBC) [Mass/Vol] 31.1 g/dL Normal 29.9-35.2 [facility] Comment on above: Performed By: #### C BC ####[facility] Stvphpgjew52[address] [place] [id number]. Airam Tripathi MCV (RBC) [Entitic vol] 96.5 fL Normal 81.0-99.0 [facility] Comment on above: Performed By: #### C BC ####[facility] Djpegljtch795[address] [place], [place] [address]DrKianna Tripathi MONO # 0.5 103/ul Normal 0.3-0.8 [facility] Comment on above: Performed By: #### C BC ####[facility] Llitmxrlje0867[address] [place], [place] [address]Dr. Airam Tripathi Monocytes/100 WBC (Bld) 6.6 % Normal 1.7-12.0 [facility] Comment on above: Performed By: #### C BC ####[facility] Yittmworav806[address] [place], [place] [address]Dr. Airam Tripathi NEUT # 4.7 103/ul Normal 1.4-6.5 [facility] Comment on above: Performed By: #### C BC ####[facility] Ezutwynykm713[address] [place], [place] [address]DrKianna Tripathi Neutrophils/100 WBC (Bld) 66.9 % Normal 43.0-75.0 [facility] Comment on above: Performed By: #### C BC ####[facility] Xppwnfezzb039[address] [place], [place] [address]Dr. Airam Tripathi Platelet mean volume (Bld) [Entitic vol] 10.2 fL Normal 9.5-13.5 [facility] Comment on above: Performed By: #### C BC ####[facility] Qjwfjnjjyt4815[address] [place], [place] [address]Dr. Airma Tripathi PLT 270 103/ul Normal 150-450 [facility] Comment on above: Performed By: #### C BC ####[facility] Gzsszqxfsx27[address] [place], [place] [id number]. Airam Tripathi RBC 3.67 106/ul Critically low 4.20-5.40 [facility] Comment on above: Performed By: #### C BC ####[facility] Iekgnoganh3732 [place] [address]Dr. Airam Tripathi WBC 7.0 103/ul Normal 4.0-11.0 [facility] Comment on above: Performed By: #### C BC ####[facility] Dydjsrfrxh439[address] [place], [place] [address]DrKianna Tripathi PROF 14(COMP METB)on 022 Albumin [Mass/Vol] 3.3 g/dL Critically low 3.4-5.0 [facility] Comment on above: Performed By: #### C MP ####[facility] Eyuvhjxwor663[address] [place], [place] [address]Dr. Airam Tripathi Albumin/Globulin [Mass ratio] 1.0 {ratio} Normal [facility] Comment on above: Performed By: #### C MP ####[facility] Uchftinnla607[address] [place], [place] [address]Dr. Airam Tripathi ALP [Catalytic activity/Vol] 107 U/L Normal 46-116 [facility] Comment on above: Performed By: #### C MP ####[facility] Sqjkkmmcfc7067[address] [place], [place] [address]Dr. Airam Tripathi ALT [Catalytic activity/Vol] 23 U/L Normal 14-59 [facility] Comment on above: Performed By: #### C MP ####[facility] Ptkowljyxj917[address] [place], [place] [address]Dr. Airam Tripathi Anion gap [Moles/Vol] 13.0 mmol/L Normal [facility] Comment on above: Performed By: #### C MP ####[facility] Sfaaykldvi911[address] [place], [place] [address]Dr. Airam Tripathi AST [Catalytic activity/Vol] 30 U/L Normal 15-37 [facility] Comment on above: Performed By: #### C MP ####[facility] Wlcxxivsvg359[address] [place], [place] [address]Dr. Airam Tripathi Bilirubin [Mass/Vol] 0.2 mg/dL Normal 0.2-1.0 [facility] Comment on above: Performed By: #### C MP ####[facility] Weyxdlwmll298[address] [place], [place] [address]Dr. Airam Tripathi Calcium [Mass/Vol] 8.8 mg/dL Normal 8.5-10.1 [facility] Comment on above: Performed By: #### C MP ####[facility] Ycnnveukdh926[address] [place], [place] [address]Dr. Airam Tripathi Chloride [Moles/Vol] 103 mmol/L Normal 98-107 [facility] Comment on above: Performed By: #### C MP ####[facility] Somwyipzqp4217[address] [place], [place] [address]Dr. Airam Tripathi CO2 [Moles/Vol] 24.9 mmol/L Normal 21.0-32.0 [facility] Comment on above: Performed By: #### C MP ####[facility] Tatdbdlqbo0599[address] [place], [place] [address]Dr. Airam Tripathi Creatinine [Mass/Vol] 1.06 mg/dL Critically high 0.55-1.02 [facility] Comment on above: Performed By: #### C MP ####[facility] Deqlnsnjsx218[address] [place], [place] [address]Dr. Airam Tripathi EGFR-AF ARGENTINE >60 Normal >=60 [facility] Comment on above: Performed By: #### C MP ####[facility] Moohikjoaz5930[address] [place], [place] [address]Dr. Airam Deuce EGFR-NON AF ARGENTINE 53 mL/min/1.73m2 Critically low >=60 [facility] Comment on above: Performed By: #### C MP ####[facility] Kcqiumvqzi478[address] [place], [place] [address]Dr. Airam Deuce Globulin (S) [Mass/Vol] 3.2 g/dL Normal [facility] Comment on above: Performed By: #### C MP ####[facility] Bzqqzecfit501[address] [place], [place] [address]Dr. Selenaneil Deuce Glucose [Mass/Vol] 91 mg/dL Normal 74-106 [facility] Comment on above: Performed By: #### C MP ####[facility] Hzcmfhluse5431 [place] [address]Dr. Airam Tripathi Potassium [Moles/Vol] 3.9 mmol/L Normal 3.5-5.1 [facility] Comment on above: Performed By: #### C MP ####[facility] Ytsvddqysy5947[address] [place], [place] [address]Dr. Airam Deuce Protein [Mass/Vol] 6.5 g/dL Normal 6.4-8.2 [facility] Comment on above: Performed By: #### C MP ####[facility] Ixomsmrkad18[address] [place], [place] [address]Dr. Airam Deuce Sodium [Moles/Vol] 137 mmol/L Normal 136-145 [facility] Comment on above: Performed By: #### C MP ####[facility] Gmdzlmdipj4030[address] [place], [place] [address]Dr. Airam Deuce Urea nitrogen [Mass/Vol] 27.0 mg/dL Critically high 7.0-18.0 [facility] Comment on above: Performed By: #### C MP ####[facility] Nletffewch9667[address] [place], [place] [address]Dr. Airam Deuce Urea nitrogen/Creatinine [Mass ratio] 25.5 mg/mg Normal [facility] Comment on above: Performed By: #### C MP ####[facility] Hutcxzbobt318[address] [place], [place] [address]Dr. Airam Deuce OSMOLALITYon 03-03-2022 Osmolality [Osmolality] 383 mosm/kg Invalid Interpretation Code [id number] [facility] Comment on above: Result Comment: Ve rified by repeat analysis Performed By: #### O SMO ####[facility] Irrkvfngpp8628[address] [place], [place] [address]Dr. Airam Deuce CBC AUTO DIFFon 02-22-2022 BASO # 0.0 103/ul Normal 0.0-0.1 [facility] Comment on above: Performed By: #### C BC ####[facility] Ynzqlpnbzv8209 [place] [address]Dr. Airam Tripathi Basophils/100 WBC (Bld) 0.4 % Normal 0.2-2.0 [facility] Comment on above: Performed By: #### C BC ####[facility] Ivwhvkoomb3764 [place] [address]Dr. Airam Tripathi EO # 0.2 103/ul Normal 0.0-0.7 [facility] Comment on above: Performed By: #### C BC ####[facility] Tlmyqsxpfn5212[address] [place], [place] [address]Dr. Airam Tripathi Eosinophils/100 WBC (Bld) 3.9 % Normal 0.9-7.0 [facility] Comment on above: Performed By: #### C BC ####[facility] Ugpcyyazos205[address] [place], [place] [address]Dr. Airam Tripathi Erythrocyte distribution width (RBC) [Ratio] 13.9 % Normal 11.0-15.0 [facility] Comment on above: Performed By: #### C BC ####[facility] Ssjusokaux[address] [place], [place] [address]Dr. Airam Tripathi Hematocrit (Bld) [Volume fraction] 32.7 % Critically low 36.0-48.0 [facility] Comment on above: Performed By: #### C BC ####[facility] Drbrsstina377[address] [place], [place] [address]Dr. Airam Tripathi Hemoglobin (Bld) [Mass/Vol] 10.7 g/dL Critically low 12.0-16.0 [facility] Comment on above: Performed By: #### C BC ####[facility] Wosimpyluj[address] [place], [place] [address]Dr. Airam Tripathi IG # 0.02 10e3/ul Normal 0.00-0.03 [facility] Comment on above: Performed By: #### C BC ####[facility] Ubchpbtfct73[address] [place], [place] [address]Dr. Airam Tripathi IG % 0.4 % Normal 0.0-0.5 [facility] Comment on above: Performed By: #### C BC ####[facility] R[address]qejzdat3699 [place] [id number]. Airam Deuce LYMPH # 1.2 103/ul Normal 1.2-3.8 [facility] Comment on above: Performed By: #### C BC ####[facility] Qllcsgxquz9231 [place] [id number]. Airam Deuce Lymphocytes/100 WBC (Bld) 25.0 % Normal 20.5-60.0 [facility] Comment on above: Performed By: #### C BC ####[facility] Ykiuyjvmni9[address] [place] [address]Dr. Selenaneil Tripathi MANUAL DIFF REQ NO Normal [facility] Comment on above: Performed By: #### C BC ####[facility] Zkvqyqqfuj[address] [place] [address]Dr. Airam Deuce MCH (RBC) [Entitic mass] 30.7 pg Normal 26.7-34.0 [facility] Comment on above: Performed By: #### C BC ####[facility] Xsaykcpxaz26[address] [place], [place] [address]Dr. Airam Deuce MCHC (RBC) [Mass/Vol] 32.7 g/dL Normal 29.9-35.2 [facility] Comment on above: Performed By: #### C BC ####[facility] Douzlbggej8563 [place] [address]Dr. Airam Deuce MCV (RBC) [Entitic vol] 93.7 fL Normal 81.0-99.0 [facility] Comment on above: Performed By: #### C BC ####[facility] Dtsbnqkbdt4252 [place] [address]Dr. Airam Deuce MONO # 0.4 103/ul Normal 0.3-0.8 [facility] Comment on above: Performed By: #### C BC ####[facility] Impifymafw4382 [place] [address]Dr. Airam Deuce Monocytes/100 WBC (Bld) 7.5 % Normal 1.7-12.0 [facility] Comment on above: Performed By: #### C BC ####[facility] Wfllbqicql8274 [place] [id number]. Airam Tripathi NEUT # 3.1 103/ul Normal 1.4-6.5 [facility] Comment on above: Performed By: #### C BC ####[facility] Duboujlewx6728 [place] [address]Dr. Airam Tripathi Neutrophils/100 WBC (Bld) 62.8 % Normal 43.0-75.0 [facility] Comment on above: Performed By: #### C BC ####[facility] Ydxenueovu8244 [place] [address]Dr. Airam Tripathi Platelet mean volume (Bld) [Entitic vol] 9.5 fL Normal 9.5-13.5 [facility] Comment on above: Performed By: #### C BC ####[facility] Ungpyeqzfa6382 [place] [address]Dr. Airam Deuce PLT 250 103/ul Normal 150-450 [facility] Comment on above: Performed By: #### C BC ####[facility] Agomdsiezc759[address] [place], [place] [address]Dr. Airam Deuce RBC 3.49 106/ul Critically low 4.20-5.40 [facility] Comment on above: Performed By: #### C BC ####[facility] Elcafnmjhg1323[address] [place], [place] [address]Dr. Airam Tripathi WBC 4.9 103/ul Normal 4.0-11.0 [facility] Comment on above: Performed By: #### C BC ####[facility] Ysbentbzfc9692 [place] [address]Dr. Airam Tripathi PROF 14(COMP METB)on 022 Albumin [Mass/Vol] 3.3 g/dL Critically low 3.4-5.0 [facility] Comment on above: Performed By: #### C MP ####[facility] Zylwlgsyrb1734 [place] [address]Dr. Airam Tripathi Albumin/Globulin [Mass ratio] 1.0 {ratio} Normal [facility] Comment on above: Performed By: #### C MP ####[facility] Cortmlqpuk0990 [place] [address]Dr. Airam Tripathi ALP [Catalytic activity/Vol] 127 U/L Critically high 46-116 [facility] Comment on above: Performed By: #### C MP ####[facility] Vnvajikzhv1542 [place] [address]Dr. Airam Tripathi ALT [Catalytic activity/Vol] 22 U/L Normal 14-59 [facility] Comment on above: Performed By: #### C MP ####[facility] Yfxjstdjpi68[address] [place], [place] [address]Dr. Airam Tripathi Anion gap [Moles/Vol] 11.9 mmol/L Normal [facility] Comment on above: Performed By: #### C MP ####[facility] Irwtmjvhed459[address] [place], [place] [address]Dr. Airam Deuce AST [Catalytic activity/Vol] 21 U/L Normal 15-37 [facility] Comment on above: Performed By: #### C MP ####[facility] Wanrhasiif[address] [place], [place] [address]Dr. Airam Tripathi Bilirubin [Mass/Vol] 0.3 mg/dL Normal 0.2-1.0 [facility] Comment on above: Performed By: #### C MP ####[facility] Gmrvcvqczj78[address] [place], [place] [address]Dr. Airam Deuce Calcium [Mass/Vol] 8.6 mg/dL Normal 8.5-10.1 [facility] Comment on above: Performed By: #### C MP ####[facility] Fteupvchgf34[address] [place], [place] [address]Dr. Airam Deuce Chloride [Moles/Vol] 105 mmol/L Normal 98-107 [facility] [facility] Comment on above: Performed By: #### C MP ####[facility] Uztynqhtfb[address] [place], [place] [address]Dr. Airam Deuce CO2 [Moles/Vol] 23.6 mmol/L Normal 21.0-32.0 [facility] Comment on above: Performed By: #### C MP ####[facility] Qjaezfbjab724[address] [place], [place] [address]Dr. Airam Tripathi Creatinine [Mass/Vol] 1.29 mg/dL Critically high 0.55-1.02 [facility] Comment on above: Performed By: #### C MP ####[facility] X[address]yvx[address] [place] [address]Dr. Airam Tripathi EGFR-AF ARGENTINE 51 mL/min/1.73m2 Critically low >=60 [facility] Comment on above: Performed By: #### C MP ####[facility] Fovkedykci[address] [place] [address]Dr. Airam Tripathi EGFR-NON AF ARGENTINE 42 mL/min/1.73m2 Critically low >=60 [facility] Comment on above: Performed By: #### C MP ####[facility] Ytdototias2660[address] [place], [place] [address]Dr. Airam Tripathi Globulin (S) [Mass/Vol] 3.2 g/dL Normal [facility] Comment on above: Performed By: #### C MP ####[facility] Idmvupttqm008[address] [place], [place] [address]Dr. Airam Tripathi Glucose [Mass/Vol] 94 mg/dL Normal 74-106 [facility] Comment on above: Performed By: #### C MP ####[facility] Zxhcdippbr955[address] [place], [place] [address]Dr. Airam Tripathi Potassium [Moles/Vol] 3.5 mmol/L Normal 3.5-5.1 [facility] Comment on above: Performed By: #### C MP ####[facility] Bjpphxocni4060[address] [place], [place] [address]Dr. Airam Tripathi Protein [Mass/Vol] 6.5 g/dL Normal 6.4-8.2 [facility] Comment on above: Performed By: #### C MP ####[facility] Lsgpbbtqoo988[address] [place], [place] [address]Dr. Airam Tripathi Sodium [Moles/Vol] 137 mmol/L Normal 136-145 [facility] Comment on above: Performed By: #### C MP ####[facility] Qcbyuirvsa79119[address] [place], [place] [address]Dr. Airam Tripathi Urea nitrogen [Mass/Vol] 37.0 mg/dL Critically high 7.0-18.0 [facility] Comment on above: Performed By: #### C MP ####[facility] Ezgrwwopip525[address] [place], [place] [address]Dr. Airam Tripathi Urea nitrogen/Creatinine [Mass ratio] 28.7 mg/mg Normal [facility] Comment on above: Performed By: #### C MP ####[facility] Yrnglrdjap307[address] [place], [place] [address]Dr. Airam Tripathi OSMOLALITYon 02-20-2022 Osmolality [Osmolality] 283 mosm/kg Normal 275-295 [facility] Comment on above: Performed By: #### O SMO ####[facility] Wyclgpgjev874[address] [place], [place] [address]Dr. Airam Tripathi CBC AUTO DIFFon 02-17-2022 BASO # 0.0 103/ul Normal 0.0-0.1 [facility] Comment on above: Performed By: #### C BC ####[facility] Ensorrsaxn5534[address] [place], [place] [address]Dr. Airam Tripathi Basophils/100 WBC (Bld) 0.3 % Normal 0.2-2.0 [facility] Comment on above: Performed By: #### C BC ####[facility] Nbngvyfwct099[address] [place], [place] [address]Dr. Airam Tripathi EO # 0.1 103/ul Normal 0.0-0.7 [facility] Comment on above: Performed By: #### C BC ####[facility] Xxianqrrgt259[address] [place], [place] [address]Dr. Airam Tripathi Eosinophils/100 WBC (Bld) 1.6 % Normal 0.9-7.0 [facility] Comment on above: Performed By: #### C BC ####[facility] Itnbxpijim3728[address] [place], [place] [address]Dr. Airam Tripathi Erythrocyte distribution width (RBC) [Ratio] 13.4 % Normal 11.0-15.0 [facility] Comment on above: Performed By: #### C BC ####[facility] Koftdvfhsp[address] [place] [address]Dr. Airam Tripathi Hematocrit (Bld) [Volume fraction] 31.4 % Critically low 36.0-48.0 [facility] Comment on above: Performed By: #### C BC ####[facility] Vkeclxfvjc30[address] [place] [address]Dr. Airam Deuce Hemoglobin (Bld) [Mass/Vol] 10.0 g/dL Critically low 12.0-16.0 [facility] Comment on above: Performed By: #### C BC ####[facility] Ackmjevyrw22[address] [place] [address]Dr. Airam Tripathi IG # 0.03 10e3/ul Normal 0.00-0.03 [facility] Comment on above: Performed By: #### C BC ####[facility] Cadbkaktvc1848[address] [place], [place] [address]Dr. Airam Tripathi IG % 0.4 % Normal 0.0-0.5 [facility] Comment on above: Performed By: #### C BC ####[facility] Loffhnycxx936[address] [place], [place] [address]Dr. Airam Tripathi LYMPH # 1.6 103/ul Normal 1.2-3.8 [facility] Comment on above: Performed By: #### C BC ####[facility] Bficfibcke[address] [place], [place] [address]Dr. Airam Tripathi Lymphocytes/100 WBC (Bld) 24.5 % Normal 20.5-60.0 [facility] Comment on above: Performed By: #### C BC ####[facility] Rigyzfmsre4913[address] [place], [place] [address]Dr. Selenaneil Tripathi MANUAL DIFF REQ NO Normal [facility] Comment on above: Performed By: #### C BC ####[facility] Bhrrzubgfd5316[address] [place], [place] [address]DrKianna Selenaneil Tripathi MCH (RBC) [Entitic mass] 30.2 pg Normal 26.7-34.0 [facility] Comment on above: Performed By: #### C BC ####[facility] Fpxfukeftu[address] [place], [place] [address]Dr. Airam Tripathi MCHC (RBC) [Mass/Vol] 31.8 g/dL Normal 29.9-35.2 [facility] Comment on above: Performed By: #### C BC ####[facility] Irjufttggd3496 [place] [id number]. Airam Deuce MCV (RBC) [Entitic vol] 94.9 fL Normal 81.0-99.0 [facility] Comment on above: Performed By: #### C BC ####[facility] Rxlonabstv7263 [place] [phone]. Airam Deuce MONO # 0.4 103/ul Normal 0.3-0.8 [facility] Comment on above: Performed By: #### C BC ####[facility] Zeiosxpghv9530 [place] [address]Dr. Airam Tripathi Monocytes/100 WBC (Bld) 5.8 % Normal 1.7-12.0 [facility] Comment on above: Performed By: #### C BC ####[facility] Ufbjdihvhz1872 [place] [address]Dr. Selenaneil Deuce NEUT # 4.5 103/ul Normal 1.4-6.5 [facility] Comment on above: Performed By: #### C BC ####[facility] Dsisaghxna2243 [place] [id number]. Airam Deuce Neutrophils/100 WBC (Bld) 67.4 % Normal 43.0-75.0 [facility] Comment on above: Performed By: #### C BC ####[facility] Ymglngdgoq9879 [place] [phone]. Airam Deuce Platelet mean volume (Bld) [Entitic vol] 9.6 fL Normal 9.5-13.5 [facility] Comment on above: Performed By: #### C BC ####[facility] Jlamsrfmzy0355 [place] [id number]. Selenaneil Deuce PLT 251 103/ul Normal 150-450 [facility] Comment on above: Performed By: #### C BC ####[facility] Hdwiyowuth0413 [place] [address]Dr. Selenaneil Deuce RBC 3.31 106/ul Critically low 4.20-5.40 [facility] Comment on above: Performed By: #### C BC ####[facility] Csrgxrkupx9957 [place] [address]Dr. Airam Tripathi WBC 6.7 103/ul Normal 4.0-11.0 [facility] Comment on above: Performed By: #### C BC ####[facility] Qwsgvhorlo8185 [place] [address]Dr. Airam Tripathi PROF 14(COMP METB)on 022 Albumin [Mass/Vol] 3.5 g/dL Normal 3.4-5.0 [facility] Comment on above: Performed By: #### C MP ####[facility] Mpxicjxihd797[address] [place], [place] [address]Dr. Airam Tripathi Albumin/Globulin [Mass ratio] 1.2 {ratio} Normal [facility] Comment on above: Performed By: #### C MP ####[facility] Ndsqdvivqk544[address] [place], [place] [address]Dr. Airam Tripathi ALP [Catalytic activity/Vol] 130 U/L Critically high 46-116 [facility] Comment on above: Performed By: #### C MP ####[facility] Bzpmuixfvl0114[address] [place], [place] [address]Dr. Airam Tripathi ALT [Catalytic activity/Vol] 18 U/L Normal 14-59 [facility] Comment on above: Performed By: #### C MP ####[facility] Itbeumculn975[address] [place], [place] [address]Dr. Airam Tripathi Anion gap [Moles/Vol] 14.0 mmol/L Normal [facility] Comment on above: Performed By: #### C MP ####[facility] Vxsfrohtus467[address] [place], [place] [address]Dr. Airam Tripathi AST [Catalytic activity/Vol] 20 U/L Normal 15-37 [facility] Comment on above: Performed By: #### C MP ####[facility] Tylvynnunn8587[address] [place], [place] [address]Dr. Airam Tripathi Bilirubin [Mass/Vol] 0.3 mg/dL Normal 0.2-1.0 [facility] Comment on above: Performed By: #### C MP ####[facility] Nfyxidufhb1335[address] [place], [place] [address]Dr. Airam Tripathi Calcium [Mass/Vol] 8.5 mg/dL Normal 8.5-10.1 [facility] Comment on above: Performed By: #### C MP ####[facility] Gbjqhbajhk144[address] [place], [place] [address]Dr. Airam Deuce Chloride [Moles/Vol] 100 mmol/L Normal 98-107 [facility] Comment on above: Performed By: #### C MP ####[facility] Gymqqxhicc808[address] [place], [place] [address]Dr. Airam Deuce CO2 [Moles/Vol] 22.7 mmol/L Normal 21.0-32.0 [facility] Comment on above: Performed By: #### C MP ####[facility] Okebrkwwsc6450[address] [place], [place] [address]Dr. Airam Deuce Creatinine [Mass/Vol] 1.28 mg/dL Critically high 0.55-1.02 [facility] Comment on above: Performed By: #### C MP ####[facility] Cybwgthjqb5932[address] [place], [place] [address]Dr. Airam Deuce EGFR-AF ARGENTINE 52 mL/min/1.73m2 Critically low >=60 [facility] Comment on above: Performed By: #### C MP ####[facility] Msmvfelgib1805[address] [place], [place] [address]Dr. Selenaneil Deuce EGFR-NON AF ARGENTINE 43 mL/min/1.73m2 Critically low >=60 [facility] Comment on above: Performed By: #### C MP ####[facility] Nrvdvfnkvz105[address] [place], [place] [address]Dr. Airam Tripathi Globulin (S) [Mass/Vol] 2.9 g/dL Normal [facility] Comment on above: Performed By: #### C MP ####[facility] Bgdwlnfywf0700[address] [place], [place] [address]Dr. Airam Tripathi Glucose [Mass/Vol] 93 mg/dL Normal 74-106 [facility] Comment on above: Performed By: #### C MP ####[facility] Qdpfcgfpzq6456 [place] [address]Dr. Airam Tripathi Potassium [Moles/Vol] 3.7 mmol/L Normal 3.5-5.1 [facility] Comment on above: Performed By: #### C MP ####[facility] Rdbojxzpxi8047[address] [place], [place] [address]Dr. Airam Tripathi Protein [Mass/Vol] 6.4 g/dL Normal 6.4-8.2 [facility] Comment on above: Performed By: #### C MP ####[facility] Lciggakema927[address] [place], [place] [address]Dr. Airam Tripathi Sodium [Moles/Vol] 133 mmol/L Critically low 136-145 [facility] Comment on above: Performed By: #### C MP ####[facility] Zyyclleurg697[address] [place], [place] [address]Dr. Airam Tripathi Urea nitrogen [Mass/Vol] 44.0 mg/dL Critically high 7.0-18.0 [facility] Comment on above: Performed By: #### C MP ####[facility] Axqyxipskz408[address] [place], [place] [address]Dr. Airam Tripathi Urea nitrogen/Creatinine [Mass ratio] 34.4 mg/mg Normal [facility] Comment on above: Performed By: #### C MP ####[facility] Fzpuheqlvi5650[address] [place], [place] [address]Dr. Airam Tripathi OSMOLALITYon 02-10-2022 Osmolality [Osmolality] 288 mosm/kg Normal 275-295 [facility] Comment on above: Performed By: #### O SMO ####[facility] Omwldtdqzn1601[address] [place], [place] [address]Dr. Airam Tripathi CBC AUTO DIFFon 02-08-2022 BASO # 0.0 103/ul Normal 0.0-0.1 [facility] Comment on above: Performed By: #### C BC ####[facility] Idzuzibzrr0670 [place] [id number]. Airam Tripathi Basophils/100 WBC (Bld) 0.3 % Normal 0.2-2.0 [facility] Comment on above: Performed By: #### C BC ####[facility] Qbjuozhbkb9889 [place] [id number]. Airam Tripathi EO # 0.2 103/ul Normal 0.0-0.7 [facility] Comment on above: Performed By: #### C BC ####[facility] Wvntlpksmf7[address] [place], [place] [address]Dr. Airam Tripathi Eosinophils/100 WBC (Bld) 2.1 % Normal 0.9-7.0 [facility] Comment on above: Performed By: #### C BC ####[facility] Iwptlctshr257[address] [place], [place] [address]Dr. Airam Tripathi Erythrocyte distribution width (RBC) [Ratio] 13.4 % Normal 11.0-15.0 [facility] Comment on above: Performed By: #### C BC ####[facility] Tbtqcujajy1245[address] [place], [place] [address]Dr. Airam Tripathi Hematocrit (Bld) [Volume fraction] 35.1 % Critically low 36.0-48.0 [facility] Comment on above: Performed By: #### C BC ####[facility] Aosajaqhwl[address] [place], [place] [address]Dr. Airam Tripathi Hemoglobin (Bld) [Mass/Vol] 10.9 g/dL Critically low 12.0-16.0 [facility] Comment on above: Performed By: #### C BC ####[facility] Ltjznzaykk969[address] [place], [place] [address]Dr. Airam Tripathi IG # 0.03 10e3/ul Normal 0.00-0.03 [facility] Comment on above: Performed By: #### C BC ####[facility] Aadhnnohos000[address] [place], [place] [address]Dr. Airam Tripathi IG % 0.3 % Normal 0.0-0.5 [facility] Comment on above: Performed By: #### C BC ####[facility] Hwfdbuyeea9901 [place] [id number]. Airam Tripathi LYMPH # 1.3 103/ul Normal 1.2-3.8 [facility] Comment on above: Performed By: #### C BC ####[facility] Zsgrhmwclc2927 [place] [id number]. Airam Tripathi Lymphocytes/100 WBC (Bld) 13.1 % Critically low 20.5-60.0 [facility] Comment on above: Performed By: #### C BC ####[facility] Aelydepwit4615 [place] [id number]. Airam Tripathi MANUAL DIFF REQ NO Normal [facility] Comment on above: Performed By: #### C BC ####[facility] Qncklxszaa4027 [place] [address]Dr. Airam Tripathi MCH (RBC) [Entitic mass] 30.4 pg Normal 26.7-34.0 [facility] Comment on above: Performed By: #### C BC ####[facility] Orsszqhlgo7537 [place] [address]Dr. Airam Tripathi MCHC (RBC) [Mass/Vol] 31.1 g/dL Normal 29.9-35.2 [facility] Comment on above: Performed By: #### C BC ####[facility] Vrayydvyry1925 [place] [id number]. Airam Tripathi MCV (RBC) [Entitic vol] 98.0 fL Normal 81.0-99.0 [facility] Comment on above: Performed By: #### C BC ####[facility] Poaqqsmjmm7180 [place] [id number]. Airam Tripathi MONO # 0.5 103/ul Normal 0.3-0.8 [facility] Comment on above: Performed By: #### C BC ####[facility] Kckiwkrvvz3569 [place] [address]Dr. Airam Tripathi Monocytes/100 WBC (Bld) 4.7 % Normal 1.7-12.0 [facility] Comment on above: Performed By: #### C BC ####[facility] Vojxybejbp1326 [place] [id number]. Airam Tripathi NEUT # 7.7 103/ul Critically high 1.4-6.5 [facility] Comment on above: Performed By: #### C BC ####[facility] Qqwibwdurs9097 [place] [id number]. Airam Tripathi Neutrophils/100 WBC (Bld) 79.5 % Critically high 43.0-75.0 [facility] Comment on above: Performed By: #### C BC ####[facility] Iyskivapgu3946 [place] [id number]. Airam Deuce Platelet mean volume (Bld) [Entitic vol] 9.6 fL Normal 9.5-13.5 [facility] Comment on above: Performed By: #### C BC ####[facility] Dhrfkrzfki0526 [place] [id number]. Airam Tripathi PLT 268 103/ul Normal 150-450 [facility] Comment on above: Performed By: #### C BC ####[facility] Csdnpeyzxh6838 [place] [id number]. Airam Deuce RBC 3.58 106/ul Critically low 4.20-5.40 [facility] Comment on above: Performed By: #### C BC ####[facility] Vqviehgbcw7097 [place] [id number]. Airam Tripathi WBC 9.7 103/ul Normal 4.0-11.0 [facility] Comment on above: Performed By: #### C BC ####[facility] Shlpdjjitl98[address] [place] [address]Dr. Airam Tripathi PROF 14(COMP METB)on 022 Albumin [Mass/Vol] 3.6 g/dL Normal 3.4-5.0 [facility] Comment on above: Performed By: #### C MP ####[facility] Dlfkkaijrq1902 [place] [id number]. Airam Tripathi Albumin/Globulin [Mass ratio] 1.1 {ratio} Normal [facility] Comment on above: Performed By: #### C MP ####[facility] Mrxquceoqw2913 [place] [address]Dr. Airam Tripathi ALP [Catalytic activity/Vol] 131 U/L Critically high 46-116 [facility] Comment on above: Performed By: #### C MP ####[facility] Gtsxazrdjs3194 [place] [address]Dr. Airam Tripathi ALT [Catalytic activity/Vol] 22 U/L Normal 14-59 [facility] Comment on above: Performed By: #### C MP ####[facility] Nisqgwijsl9526 [place] [address]Dr. Airam Tripathi Anion gap [Moles/Vol] 13.3 mmol/L Normal [facility] Comment on above: Performed By: #### C MP ####[facility] Kmbujkwkld[address] [place], [place] [address]Dr. Airam Tripathi AST [Catalytic activity/Vol] 23 U/L Normal 15-37 [facility] Comment on above: Performed By: #### C MP ####[facility] Plhbetkftu7070[address] [place], [place] [address]Dr. Airam Tripathi Bilirubin [Mass/Vol] 0.3 mg/dL Normal 0.2-1.0 [facility] Comment on above: Performed By: #### C MP ####[facility] Dvxvejgdfv445[address] [place], [place] [address]Dr. Airam Tripathi Calcium [Mass/Vol] 8.7 mg/dL Normal 8.5-10.1 [facility] Comment on above: Performed By: #### C MP ####[facility] Ybfcwghlhm8106 [place] [address]Dr. Airam Tripathi Chloride [Moles/Vol] 104 mmol/L Normal 98-107 [facility] Comment on above: Performed By: #### C MP ####[facility] Jiuppzuzkg170[address] [place], [place] [address]Dr. Airam Tripathi CO2 [Moles/Vol] 22.0 mmol/L Normal 21.0-32.0 [facility] Comment on above: Performed By: #### C MP ####[facility] Hfdutvyoek[address] [place], [place] [id number]. Airam Tripathi Creatinine [Mass/Vol] 1.20 mg/dL Critically high 0.55-1.02 [facility] Comment on above: Performed By: #### C MP ####[facility] Laxebwkvfx8560 [place] [address]Dr. Airam Tripathi EGFR-AF ARGENTINE 56 mL/min/1.73m2 Critically low >=60 [facility] Comment on above: Performed By: #### C MP ####[facility] Tabwwibqlp2727 [place] [address]Dr. Airam Deuce EGFR-NON AF ARGENTINE 46 mL/min/1.73m2 Critically low >=60 [facility] Comment on above: Performed By: #### C MP ####[facility] Qncgvvrzik0374 [place] [address]Dr. Selenaneil Deuce Globulin (S) [Mass/Vol] 3.2 g/dL Normal [facility] Comment on above: Performed By: #### C MP ####[facility] Ihdooskghj359[address] [place], [place] [address]Dr. Airam Deuce Glucose [Mass/Vol] 98 mg/dL Normal 74-106 [facility] Comment on above: Performed By: #### C MP ####[facility] Qokavjpnbo174[address] [place], [place] [address]Dr. Airam Deuce Potassium [Moles/Vol] 4.3 mmol/L Normal 3.5-5.1 [facility] Comment on above: Performed By: #### C MP ####[facility] Ecwygbzyet703[address] [place], [place] [address]Dr. Selenaneil Tripathi Protein [Mass/Vol] 6.8 g/dL Normal 6.4-8.2 [facility] Comment on above: Performed By: #### C MP ####[facility] Zlgzqmejnn065[address] [place], [place] [address]Dr. Airam Tripathi Sodium [Moles/Vol] 135 mmol/L Critically low 136-145 [facility] Comment on above: Performed By: #### C MP ####[facility] Hkqupwrwgm3436[address] [place], [place] [address]Dr. Airam Tripathi Urea nitrogen [Mass/Vol] 33.0 mg/dL Critically high 7.0-18.0 [facility] Comment on above: Performed By: #### C MP ####[facility] Aqqovvwyjd8582 [place] [address]Dr. Airam Tripathi Urea nitrogen/Creatinine [Mass ratio] 27.5 mg/mg Normal [facility] Comment on above: Performed By: #### C MP ####[facility] Sqrrcspmmd195[address] [place], [place] [address]Dr. Airam Tripathi OSMOLALITYon 02-07-2022 Osmolality [Osmolality] 299 mosm/kg Critically high 275-295 [facility] Comment on above: Performed By: #### O SMO ####[facility] Bwbhzuuoxs900[address] [place], [place] [address]Dr. Airam Tripathi CBC AUTO DIFFon 02-03-2022 BASO # 0.0 103/ul Normal 0.0-0.1 [facility] Comment on above: Performed By: #### C BC ####[facility] Tlxcnwenls0438[address] [place], [place] [address]Dr. Airam Tripathi Basophils/100 WBC (Bld) 0.4 % Normal 0.2-2.0 [facility] Comment on above: Performed By: #### C BC ####[facility] Ucdbdqmtfe078[address] [place], [place] [address]Dr. Airam Tripathi EO # 0.3 103/ul Normal 0.0-0.7 [facility] Comment on above: Performed By: #### C BC ####[facility] Pndnmdpogu201[address] [place], [place] [address]Dr. Airam Tripathi Eosinophils/100 WBC (Bld) 3.6 % Normal 0.9-7.0 [facility] Comment on above: Performed By: #### C BC ####[facility] Ovcripnxns2236[address] [place], [place] [address]Dr. Airam Tripathi Erythrocyte distribution width (RBC) [Ratio] 13.2 % Normal 11.0-15.0 [facility] Comment on above: Performed By: #### C BC ####[facility] Lzzymcasho0997 [place] [address]Dr. Airam Tripathi Hematocrit (Bld) [Volume fraction] 32.0 % Critically low 36.0-48.0 [facility] Comment on above: Performed By: #### C BC ####[facility] Bqrtgdkiay4781 [place] [address]Dr. Selenaneil Tripathi Hemoglobin (Bld) [Mass/Vol] 9.8 g/dL Critically low 12.0-16.0 [facility] Comment on above: Performed By: #### C BC ####[facility] Ejcscnwiri975[address] [place], [place] [address]Dr. Airam Tripathi IG # 0.03 10e3/ul Normal 0.00-0.03 [facility] Comment on above: Performed By: #### C BC ####[facility] Clbyqfxhgp4924[address] [place], [place] [address]Dr. Airam Tripathi IG % 0.4 % Normal 0.0-0.5 [facility] Comment on above: Performed By: #### C BC ####[facility] Lzkrfwdddp09[address] [place], [place] [address]Dr. Airam Tripathi LYMPH # 1.7 103/ul Normal 1.2-3.8 [facility] Comment on above: Performed By: #### C BC ####[facility] Xzandizmzu[address] [place], [place] [address]Dr. Airam Tripathi Lymphocytes/100 WBC (Bld) 24.8 % Normal 20.5-60.0 [facility] Comment on above: Performed By: #### C BC ####[facility] Tnypibmdvm232[address] [place], [place] [address]Dr. Airam Tripathi MANUAL DIFF REQ NO Normal [facility] Comment on above: Performed By: #### C BC ####[facility] Rviayyqcty812[address] [place], [place] [address]Dr. iAram Tripathi MCH (RBC) [Entitic mass] 29.6 pg Normal 26.7-34.0 [facility] Comment on above: Performed By: #### C BC ####[facility] Zlegvvavqa1536 [place] [id number]. Airam Tripathi MCHC (RBC) [Mass/Vol] 30.6 g/dL Normal 29.9-35.2 [facility] Comment on above: Performed By: #### C BC ####[facility] Hcvuuneazt3103 [place] [id number]. Airam Tripathi MCV (RBC) [Entitic vol] 96.7 fL Normal 81.0-99.0 [facility] Comment on above: Performed By: #### C BC ####[facility] Hngcegabnt2660 [place] [id number]. Airam Tripathi MONO # 0.4 103/ul Normal 0.3-0.8 [facility] Comment on above: Performed By: #### C BC ####[facility] Qdkgqhjquj757[address] [place], [place] [address]Dr. Airma Deuce Monocytes/100 WBC (Bld) 6.3 % Normal 1.7-12.0 [facility] Comment on above: Performed By: #### C BC ####[facility] Skiambvrww[address] [place], [place] [id number]. Airam Tripathi NEUT # 4.5 103/ul Normal 1.4-6.5 [facility] Comment on above: Performed By: #### C BC ####[facility] Agtmffafpn18[address] [place], [place] [id number]. Ariam Tripathi Neutrophils/100 WBC (Bld) 64.5 % Normal 43.0-75.0 [facility] Comment on above: Performed By: #### C BC ####[facility] [facility] [address] [place] [id number]. Airam Tripathi Platelet mean volume (Bld) [Entitic vol] 9.3 fL Critically low 9.5-13.5 [facility] Comment on above: Performed By: #### C BC ####[facility] Jwtilgrkkq[address] [place], [place] [id number]. Airam Deuce PLT 243 103/ul Normal 150-450 [facility] Comment on above: Performed By: #### C BC ####[facility] [address] [place] [id number]. Airam Tripathi RBC 3.31 106/ul Critically low 4.20-5.40 [facility] Comment on above: Performed By: #### C BC ####[facility] [address] [place] [address]Dr. Airam Tripathi WBC 7.0 103/ul Normal 4.0-11.0 [facility] Comment on above: Performed By: #### C BC ####[facility] [address] [place] [address]Dr. Airam Tripathi PROF 14(COMP METB)on 022 Albumin [Mass/Vol] 3.3 g/dL Critically low 3.4-5.0 [facility] Comment on above: Performed By: #### C MP ####[facility] X[address]scjxwc[address] [place] [address]Dr. Airam Tripathi Albumin/Globulin [Mass ratio] 1.1 {ratio} Normal [facility] Comment on above: Performed By: #### C MP ####[facility] Mnqyrqteko[address] [place], [place] [address]Dr. Airam Tripathi ALP [Catalytic activity/Vol] 126 U/L Critically high 46-116 [facility] Comment on above: Performed By: #### C MP ####[facility] Welmoqxtwq[address] [place] [address]Dr. Airam Tripathi ALT [Catalytic activity/Vol] 21 U/L Normal 14-59 [facility] Comment on above: Performed By: #### C MP ####[facility] Dymtxmqnku9[address] [place], [place] [address]Dr. Airam Tripathi Anion gap [Moles/Vol] 11.8 mmol/L Normal [facility] Comment on above: Performed By: #### C MP ####[facility] Gxldbymxyn[address] [place], [place] [address]Dr. Airam Tripathi AST [Catalytic activity/Vol] 22 U/L Normal 15-37 [facility] Comment on above: Performed By: #### C MP ####[facility] Iqbhomxsai[address] [place] [address]Dr. Airam Tripathi Bilirubin [Mass/Vol] 0.3 mg/dL Normal 0.2-1.0 [facility] Comment on above: Performed By: #### C MP ####[facility] Sfciospjhr[address] [place], [place] [address]Dr. Airam Tripathi Calcium [Mass/Vol] 8.7 mg/dL Normal 8.5-10.1 [facility] Comment on above: Performed By: #### C MP ####[facility] Tyjgdifwkn99[address] [place], [place] [address]Dr. Airam Tripathi Chloride [Moles/Vol] 102 mmol/L Normal 98-107 [facility] Comment on above: Performed By: #### C MP ####[facility] Twvndptygk[address] [place], [place] [address]Dr. Airam Tripathi CO2 [Moles/Vol] 25.5 mmol/L Normal 21.0-32.0 [facility] Comment on above: Performed By: #### C MP ####[facility] Jndihbdcwm208[address] [place], [place] [address]Dr. Airam Tripathi Creatinine [Mass/Vol] 1.43 mg/dL Critically high 0.55-1.02 [facility] Comment on above: Performed By: #### C MP ####[facility] Oltbfwqvoe[address] [place], [place] [address]Dr. Airam Tripathi EGFR-AF ARGENTINE 46 mL/min/1.73m2 Critically low >=60 [facility] Comment on above: Performed By: #### C MP ####[facility] Sbpqfuydfd997[address] [place], [place] [address]Dr. Airam Tripathi EGFR-NON AF ARGENTINE 38 mL/min/1.73m2 Critically low >=60 [facility] Comment on above: Performed By: #### C MP ####[facility] Bfmqgbjiaq22[address] [place], [place] [address]Dr. Airam Tripathi Globulin (S) [Mass/Vol] 2.9 g/dL Normal [facility] Comment on above: Performed By: #### C MP ####[facility] [address]ntvbkts[address] [place] [address]Dr. Airam Tripathi Glucose [Mass/Vol] 83 mg/dL Normal 74-106 [facility] Comment on above: Performed By: #### C MP ####[facility] Jgirrbupny018[address] [place], [place] [address]Dr. Airam Tripathi Potassium [Moles/Vol] 4.3 mmol/L Normal 3.5-5.1 [facility] Comment on above: Performed By: #### C MP ####[facility] Bigurehwkq010[address] [place], [place] [address]Dr. Airam Tripathi Protein [Mass/Vol] 6.2 g/dL Critically low 6.4-8.2 [facility] Comment on above: Performed By: #### C MP ####[facility] Pqxnqawccd[address] [place], [place] [address]Dr. Airam Tripathi Sodium [Moles/Vol] 135 mmol/L Critically low 136-145 [facility] Comment on above: Performed By: #### C MP ####[facility] Zkiofckkap837[address] [place], [place] [address]Dr. Airam Tripathi Urea nitrogen [Mass/Vol] 39.0 mg/dL Critically high 7.0-18.0 [facility] Comment on above: Performed By: #### C MP ####[facility] Qjmqxilexg225[address] [place], [place] [address]Dr. Airam Tripathi Urea nitrogen/Creatinine [Mass ratio] 27.3 mg/mg Normal [facility] Comment on above: Performed By: #### C MP ####[facility] Dgrsopuuwh715[address] [place], [place] [address]Dr. Airam Deuce OSMOLALITYon 02-02-2022 Osmolality [Osmolality] 292 mosm/kg Normal 275-295 [facility] Comment on above: Performed By: #### O SMO ####[facility] Voflnnjzhx966[address] [place], [place] [address]Dr. Airam Tripathi CBC AUTO DIFFon 01-27-2022 BASO # 0.0 103/ul Normal 0.0-0.1 [facility] Comment on above: Performed By: #### C BC ####[facility] [address]xep[address] [place] [id number]. Airam Tripathi Basophils/100 WBC (Bld) 0.4 % Normal 0.2-2.0 [facility] Comment on above: Performed By: #### C BC ####[facility] Zofyjzjbak384[address] [place], [place] [id number]. Airam Tripathi EO # 0.2 103/ul Normal 0.0-0.7 [facility] Comment on above: Performed By: #### C BC ####[facility] Bmrigmctyr422[address] [place], [place] [address]Dr. Airam Tripathi Eosinophils/100 WBC (Bld) 3.4 % Normal 0.9-7.0 [facility] Comment on above: Performed By: #### C BC ####[facility] Ysqsvgsivf99[address] [place], [place] [address]Dr. Airam Tripathi Erythrocyte distribution width (RBC) [Ratio] 13.1 % Normal 11.0-15.0 [facility] Comment on above: Performed By: #### C BC ####[facility] Nhhilhoszl32[address] [place], [place] [address]Dr. Airam Tripathi Hematocrit (Bld) [Volume fraction] 31.6 % Critically low 36.0-48.0 [facility] Comment on above: Performed By: #### C BC ####[facility] Gxyoxsvxeq414[address] [place], [place] [id number]. Airam Tripathi Hemoglobin (Bld) [Mass/Vol] 9.9 g/dL Critically low 12.0-16.0 [facility] Comment on above: Performed By: #### C BC ####[facility] Jkfftlqmti032[address] [place], [place] [address]Dr. Airam Tripathi IG # 0.02 10e3/ul Normal 0.00-0.03 [facility] Comment on above: Performed By: #### C BC ####[facility] Tcipvdrhpr[address] [place], [place] [address]Dr. Airam Tripathi IG % 0.4 % Normal 0.0-0.5 [facility] Comment on above: Performed By: #### C BC ####[facility] [address]zn[address] [place] [id number]. Airam Tripathi LYMPH # 1.0 103/ul Critically low 1.2-3.8 [facility] Comment on above: Performed By: #### C BC ####[facility] T[address]ubxnzb39[address] [place] [id number]. Airam Deuce Lymphocytes/100 WBC (Bld) 17.4 % Critically low 20.5-60.0 [facility] Comment on above: Performed By: #### C BC ####[facility] [address] [place] [address]Dr. Selenaneil Tripathi MANUAL DIFF REQ NO Normal [facility] Comment on above: Performed By: #### C BC ####[facility] Dhsgjolcmk508[address] [place], [place] [address]Dr. Airam Deuce MCH (RBC) [Entitic mass] 30.1 pg Normal 26.7-34.0 [facility] Comment on above: Performed By: #### C BC ####[facility] Irswrikkdi[address] [place] [address]Dr. Airam Tripathi MCHC (RBC) [Mass/Vol] 31.3 g/dL Normal 29.9-35.2 [facility] Comment on above: Performed By: #### C BC ####[facility] Rayuprfppt[address] [place] [address]Dr. Airam Deuce MCV (RBC) [Entitic vol] 96.0 fL Normal 81.0-99.0 [facility] Comment on above: Performed By: #### C BC ####[facility] Kh[address]lixs[address] [place] [address]Dr. Airam Tripathi MONO # 0.5 103/ul Normal 0.3-0.8 [facility] Comment on above: Performed By: #### C BC ####[facility] Kbeneqqjdz[address] [place], [place] [id number]. Selenaneil Tripathi Monocytes/100 WBC (Bld) 8.6 % Normal 1.7-12.0 [facility] Comment on above: Performed By: #### C BC ####[facility] [address]cf[address] [place] [id number]. Airam Tripathi NEUT # 3.9 103/ul Normal 1.4-6.5 [facility] Comment on above: Performed By: #### C BC ####[facility] Y[address]dsnmplf[address] [place] [id number]. Airam Tripathi Neutrophils/100 WBC (Bld) 69.8 % Normal 43.0-75.0 [facility] Comment on above: Performed By: #### C BC ####[facility] Spjfqbkcoo0[address] [place] [phone]. Airam Tripathi Platelet mean volume (Bld) [Entitic vol] 9.6 fL Normal 9.5-13.5 [facility] Comment on above: Performed By: #### C BC ####[facility] Hbgyfistqp85[address] [place] [address]Dr. Airam Tripathi PLT 228 103/ul Normal 150-450 [facility] Comment on above: Performed By: #### C BC ####[facility] Vxegyoreub[address] [place], [place] [address]Dr. Airam Tripathi RBC 3.29 106/ul Critically low 4.20-5.40 [facility] Comment on above: Performed By: #### C BC ####[facility] Gvxidtinqt854[address] [place], [place] [address]Dr. Airam Tripathi WBC 5.6 103/ul Normal 4.0-11.0 [facility] Comment on above: Performed By: #### C BC ####[facility] Vyojtivxpl[address] [place], [place] [address]Dr. Airam Tripathi PROF 14(COMP METB)on 022 Albumin [Mass/Vol] 3.1 g/dL Critically low 3.4-5.0 [facility] Comment on above: Performed By: #### C MP ####[facility] Tcftacpteu24[address] [place] [address]Dr. Selenaneil Deuce Albumin/Globulin [Mass ratio] 1.0 {ratio} Normal [facility] Comment on above: Performed By: #### C MP ####[facility] Sc[address]zdlgmv7[address] [place] [id number]. Airam Tripathi ALP [Catalytic activity/Vol] 131 U/L Critically high 46-116 [facility] Comment on above: Performed By: #### C MP ####[facility] R[address]axihshwk25[address] [place] [id number]. Airam Tripathi ALT [Catalytic activity/Vol] 19 U/L Normal 14-59 [facility] Comment on above: Performed By: #### C MP ####[facility] Lmaaawvulw[address] [place] [address]Dr. Airam Tripathi Anion gap [Moles/Vol] 12.9 mmol/L Normal [facility] Comment on above: Performed By: #### C MP ####[facility] Dlatedduxz450[address] [place], [place] [address]Dr. Airam Tripathi AST [Catalytic activity/Vol] 21 U/L Normal 15-37 [facility] Comment on above: Performed By: #### C MP ####[facility] Irdizvvlsh26[address] [place], [place] [address]Dr. Airam Tripathi Bilirubin [Mass/Vol] 0.2 mg/dL Normal 0.2-1.0 [facility] Comment on above: Performed By: #### C MP ####[facility] Ksvukcnpig[address] [place], [place] [address]Dr. Airam Tripathi Calcium [Mass/Vol] 8.4 mg/dL Critically low 8.5-10.1 [facility] Comment on above: Performed By: #### C MP ####[facility] T[address]wyqgfs3[address] [place] [address]Dr. Airam Tripathi Chloride [Moles/Vol] 103 mmol/L Normal 98-107 [facility] Comment on above: Performed By: #### C MP ####[facility] [address]acwmswlo[address] [place] [address]Dr. Airam Tripathi CO2 [Moles/Vol] 23.7 mmol/L Normal 21.0-32.0 [facility] Comment on above: Performed By: #### C MP ####[facility] Anblalmply33[address] [place] [id number]. Airam Tripathi Creatinine [Mass/Vol] 1.37 mg/dL Critically high 0.55-1.02 [facility] Comment on above: Performed By: #### C MP ####[facility] Quluixqfeq3894 [place] [id number]. Airam Tripathi EGFR-AF ARGENTINE 48 mL/min/1.73m2 Critically low >=60 [facility] Comment on above: Performed By: #### C MP ####[facility] Elzswmyicy48[address] [place] [id number]. Airam Tripathi EGFR-NON AF ARGENTINE 39 mL/min/1.73m2 Critically low >=60 [facility] Comment on above: Performed By: #### C MP ####[facility] Hhgqmvghpw7416 [place] [id number]. Airam Tripathi Globulin (S) [Mass/Vol] 3.1 g/dL Normal [facility] Comment on above: Performed By: #### C MP ####[facility] Smwjdjbjru7[address] [place] [id number]. Airam Tripathi Glucose [Mass/Vol] 88 mg/dL Normal 74-106 [facility] Comment on above: Performed By: #### C MP ####[facility] Pbwxoxfrer3086 [place] [id number]. Airam Tripathi Potassium [Moles/Vol] 4.6 mmol/L Normal 3.5-5.1 [facility] Comment on above: Performed By: #### C MP ####[facility] Oaonccglms030[address] [place] [id number]. Airam Tripathi Protein [Mass/Vol] 6.2 g/dL Critically low 6.4-8.2 [facility] Comment on above: Performed By: #### C MP ####[facility] Qygkxmxace9507 [place] [id number]. Airam Tripathi Sodium [Moles/Vol] 135 mmol/L Critically low 136-145 [facility] Comment on above: Performed By: #### C MP ####[facility] Trqwbgxrow40[address] [place], [place] [address]Dr. Airam Tripathi Urea nitrogen [Mass/Vol] 34.0 mg/dL Critically high 7.0-18.0 [facility] Comment on above: Performed By: #### C MP ####[facility] Maxdiguvrs[address] [place] [address]Dr. Airam Tripathi Urea nitrogen/Creatinine [Mass ratio] 24.8 mg/mg Normal [facility] Comment on above: Performed By: #### C MP ####[facility] Viidfxgxfq1864[address] [place], [place] [address]Dr. Airam Tripathi OSMOLALITYon 01-21-2022 Osmolality [Osmolality] 276 mosm/kg Normal 275-295 [facility] Comment on above: Performed By: #### O SMO ####[facility] Avsuvmszyv747[address] [place], [place] [address]Dr. Airam Tripathi MRI CSPINE WO CONon 01-21-20 MRI CSPINE WO CON Normal [facility] CBC AUTO DIFFon 01-19-2022 BASO # 0.0 103/ul Normal 0.0-0.1 [facility] Comment on above: Performed By: #### C BC ####[facility] Bzvpbypeql163[address] [place], [place] [address]Dr. Airam Deuce Basophils/100 WBC (Bld) 0.2 % Normal 0.2-2.0 [facility] Comment on above: Performed By: #### C BC ####[facility] Ftjfpucwbj65[address] [place], [place] [address]Dr. Airam Deuce EO # 0.2 103/ul Normal 0.0-0.7 [facility] Comment on above: Performed By: #### C BC ####[facility] Nutkzfuyvt436[address] [place], [place] [address]Dr. Selenaneil Deuce Eosinophils/100 WBC (Bld) 2.1 % Normal 0.9-7.0 [facility] Comment on above: Performed By: #### C BC ####[facility] Cwgcetibmw173[address] [place], [place] [address]Dr. Selenaneil Deuce Erythrocyte distribution width (RBC) [Ratio] 12.7 % Normal 11.0-15.0 [facility] Comment on above: Performed By: #### C BC ####[facility] Wqirceikaf9[address] [place] [address]Dr. Airam Tripathi Hematocrit (Bld) [Volume fraction] 32.2 % Critically low 36.0-48.0 [facility] Comment on above: Performed By: #### C BC ####[facility] Ioecxacuws8035[address] [place], [place] [address]Dr. Selenaneil Tripathi Hemoglobin (Bld) [Mass/Vol] 10.4 g/dL Critically low 12.0-16.0 [facility] Comment on above: Performed By: #### C BC ####[facility] Sapozomcqg418[address] [place], [place] [address]Dr. Airam Tripathi IG # 0.03 10e3/ul Normal 0.00-0.03 [facility] Comment on above: Performed By: #### C BC ####[facility] Trfppofbat184[address] [place], [place] [address]Dr. Selenaneil Tripathi IG % 0.3 % Normal 0.0-0.5 [facility] Comment on above: Performed By: #### C BC ####[facility] Hiwehmjlpr813[address] [place], [place] [address]DrKianna Airam Tripathi LYMPH # 1.4 103/ul Normal 1.2-3.8 [facility] Comment on above: Performed By: #### C BC ####[facility] Ewazwmlpys699[address] [place], [place] [address]Dr. Selenaneil Tripathi Lymphocytes/100 WBC (Bld) 16.0 % Critically low 20.5-60.0 [facility] Comment on above: Performed By: #### C BC ####[facility] Ekmsljtope039[address] [place], [place] [address]DrKianna Tripathi MANUAL DIFF REQ NO Normal [facility] Comment on above: Performed By: #### C BC ####[facility] Fnsbwafqag[address] [place], [place] [address]DrKianna Tripathi MCH (RBC) [Entitic mass] 30.0 pg Normal 26.7-34.0 [facility] Comment on above: Performed By: #### C BC ####[facility] Snrypprolx0538 [place] [address]DrKianna Tripathi MCHC (RBC) [Mass/Vol] 32.3 g/dL Normal 29.9-35.2 [facility] Comment on above: Performed By: #### C BC ####[facility] Fynygrwhdh64[address] [place], [place] [address]DrKianna Tripathi MCV (RBC) [Entitic vol] 92.8 fL Normal 81.0-99.0 [facility] Comment on above: Performed By: #### C BC ####[facility] Gwehkzshdy68[address] [place], [place] [address]DrKianna Tripathi MONO # 0.4 103/ul Normal 0.3-0.8 [facility] Comment on above: Performed By: #### C BC ####[facility] Kjgobwxbhj105[address] [place], [place] [address]DrKianna Tripathi Monocytes/100 WBC (Bld) 4.9 % Normal 1.7-12.0 [facility] Comment on above: Performed By: #### C BC ####[facility] Zosgenhcpw367[address] [place], [place] [address]DrKianna Tripathi NEUT # 6.6 103/ul Critically high 1.4-6.5 [facility] Comment on above: Performed By: #### C BC ####[facility] Fgwiejowdt28[address] [place], [place] [address]DrKianna Tripathi Neutrophils/100 WBC (Bld) 76.5 % Critically high 43.0-75.0 [facility] Comment on above: Performed By: #### C BC ####[facility] Frgjjymydh320[address] [place], [place] [address]DrKianna Tripathi Platelet mean volume (Bld) [Entitic vol] 9.8 fL Normal 9.5-13.5 [facility] Comment on above: Performed By: #### C BC ####[facility] Vfhhvgfaxp598[address] [place], [place] [address]Dr. Airam Tripathi PLT 262 103/ul Normal 150-450 [facility] Comment on above: Performed By: #### C BC ####[facility] Pempdiolsf[address] [place] [address]Dr. Selenaneil Deuce RBC 3.47 106/ul Critically low 4.20-5.40 [facility] Comment on above: Performed By: #### C BC ####[facility] Mcvrvnfzot65[address] [place] [address]Dr. Airam Tripathi WBC 8.7 103/ul Normal 4.0-11.0 [facility] Comment on above: Performed By: #### C BC ####[facility] Dbbkdjhjbo75[address] [place] [address]DrKianna Tripathi PROF 14(COMP METB)on 022 Albumin [Mass/Vol] 3.3 g/dL Critically low 3.4-5.0 [facility] Comment on above: Performed By: #### C MP ####[facility] Handyylpfx37[address] [place], [place] [address]Dr. Airam Tripathi Albumin/Globulin [Mass ratio] 1.1 {ratio} Normal [facility] Comment on above: Performed By: #### C MP ####[facility] Nfmgjjdcmn904[address] [place], [place] [address]Dr. Airam Tripathi ALP [Catalytic activity/Vol] 114 U/L Normal 46-116 [facility] Comment on above: Performed By: #### C MP ####[facility] Oiggggccmc0993 [place] [address]Dr. Airam Tripathi ALT [Catalytic activity/Vol] 20 U/L Normal 14-59 [facility] Comment on above: Performed By: #### C MP ####[facility] Pdyokjqghx5[address] [place] [address]Dr. Airam Tripathi Anion gap [Moles/Vol] 14.7 mmol/L Normal [facility] Comment on above: Performed By: #### C MP ####[facility] Uyzofcewqj680[address] [place], [place] [address]Dr. Airam Tripathi AST [Catalytic activity/Vol] 22 U/L Normal 15-37 [facility] Comment on above: Performed By: #### C MP ####[facility] Rldisykugk[address] [place], [place] [address]Dr. Airam Tripathi Bilirubin [Mass/Vol] 0.3 mg/dL Normal 0.2-1.0 [facility] Comment on above: Performed By: #### C MP ####[facility] Ovlmuiuurt49[address] [place], [place] [address]Dr. Airam Tripathi Calcium [Mass/Vol] 8.8 mg/dL Normal 8.5-10.1 [facility] Comment on above: Performed By: #### C MP ####[facility] Pqzekkkroz984[address] [place], [place] [address]Dr. Airam Tripathi Chloride [Moles/Vol] 97 mmol/L Critically low 98-107 [facility] Comment on above: Performed By: #### C MP ####[facility] Xplstzmktl399[address] [place], [place] [address]Dr. Airam Tripathi CO2 [Moles/Vol] 24.5 mmol/L Normal 21.0-32.0 [facility] Comment on above: Performed By: #### C MP ####[facility] Hxkmrsnbbq620[address] [place], [place] [address]Dr. Airam Tripathi Creatinine [Mass/Vol] 1.28 mg/dL Critically high 0.55-1.02 [facility] Comment on above: Performed By: #### C MP ####[facility] Fiqnjnwncb7714[address] [place], [place] [address]Dr. Airam Tripathi EGFR-AF ARGENTINE 52 mL/min/1.73m2 Critically low >=60 [facility] Comment on above: Performed By: #### C MP ####[facility] Ezlrwetrdf286[address] [place], [place] [address]Dr. Airam Tripathi EGFR-NON AF ARGENTINE 43 mL/min/1.73m2 Critically low >=60 [facility] Comment on above: Performed By: #### C MP ####[facility] Bmpxlsboej514[address] [place], [place] [address]Dr. Airam Tripathi Globulin (S) [Mass/Vol] 3.1 g/dL Normal [facility] Comment on above: Performed By: #### C MP ####[facility] Lgvrzlosgu84[address] [place] [address]Dr. Airam Tripathi Glucose [Mass/Vol] 87 mg/dL Normal 74-106 [facility] Comment on above: Performed By: #### C MP ####[facility] Peqttioliq05[address] [place], [place] [address]Dr. Airam Deuce Potassium [Moles/Vol] 4.2 mmol/L Normal 3.5-5.1 [facility] Comment on above: Performed By: #### C MP ####[facility] Eucwekkdmx647[address] [place], [place] [address]Dr. Airam Tripathi Protein [Mass/Vol] 6.4 g/dL Normal 6.4-8.2 [facility] Comment on above: Performed By: #### C MP ####[facility] Nopmndczwc468[address] [place], [place] [address]Dr. Selenaneil Deuce Sodium [Moles/Vol] 132 mmol/L Critically low 136-145 [facility] Comment on above: Performed By: #### C MP ####[facility] Dycijvdgkm3714[address] [place], [place] [address]Dr. Airam Deuce Urea nitrogen [Mass/Vol] 36.0 mg/dL Critically high 7.0-18.0 [facility] Comment on above: Performed By: #### C MP ####[facility] Iwzzgdffmo811[address] [place], [place] [address]Dr. Airam Tripathi Urea nitrogen/Creatinine [Mass ratio] 28.1 mg/mg Normal [facility] Comment on above: Performed By: #### C MP ####[facility] Uthhumtvht7664[address] [place], [place] [address]Dr. Airam Tripathi XR DEXA BONE DENSITYon 01-19 XR DEXA BONE DENSITY Normal [facility] OSMOLALITYon 01-13-2022 Osmolality [Osmolality] 277 mosm/kg Normal 275-295 [facility] Comment on above: Performed By: #### O SMO ####[facility] Iavmxqzgzj825[address] [place], [place] [address]Dr. Airam Tripathi CBC AUTO DIFFon 01-11-2022 BASO # 0.0 103/ul Normal 0.0-0.1 [facility] Comment on above: Performed By: #### C BC ####[facility] Jvtkrfqbea[address] [place], [place] [address]Dr. Airam Deuce Basophils/100 WBC (Bld) 0.5 % Normal 0.2-2.0 [facility] Comment on above: Performed By: #### C BC ####[facility] Njcvlaytnh[address] [place], [place] [address]Dr. Airam Deuce EO # 0.2 103/ul Normal 0.0-0.7 [facility] Comment on above: Performed By: #### C BC ####[facility] Apqnrhgdts[address] [place], [place] [address]Dr. Selenaneil Tripathi Eosinophils/100 WBC (Bld) 3.1 % Normal 0.9-7.0 [facility] Comment on above: Performed By: #### C BC ####[facility] Itzfljjpjn8[address] [place], [place] [address]Dr. Airam Tripathi Erythrocyte distribution width (RBC) [Ratio] 12.5 % Normal 11.0-15.0 [facility] Comment on above: Performed By: #### C BC ####[facility] Nnvstojope[address] [place], [place] [address]Dr. Airam Tripathi Hematocrit (Bld) [Volume fraction] 34.4 % Critically low 36.0-48.0 [facility] Comment on above: Performed By: #### C BC ####[facility] Zcacjetfop[address] [place], [place] [address]Dr. Selenaneil Tripathi Hemoglobin (Bld) [Mass/Vol] 11.0 g/dL Critically low 12.0-16.0 [facility] Comment on above: Performed By: #### C BC ####[facility] Jgaqnuhcyd44[address] [place], [place] [address]Dr. Airam Tripathi IG # 0.03 10e3/ul Normal 0.00-0.03 [facility] Comment on above: Performed By: #### C BC ####[facility] Dmnpchkael7932 [place] [id number]. Airam Tripathi IG % 0.5 % Normal 0.0-0.5 [facility] Comment on above: Performed By: #### C BC ####[facility] Rwggudkpgq2418 [place] [id number]. Airam Tripathi LYMPH # 1.6 103/ul Normal 1.2-3.8 [facility] Comment on above: Performed By: #### C BC ####[facility] Tjskabukye5466 [place] [phone]. Airam Deuce Lymphocytes/100 WBC (Bld) 28.0 % Normal 20.5-60.0 [facility] Comment on above: Performed By: #### C BC ####[facility] Zjudmuennv77[address] [place], [place] [address]Dr. Selenaneil Tripathi MANUAL DIFF REQ NO Normal [facility] Comment on above: Performed By: #### C BC ####[facility] Xuzefglvxa[address] [place], [place] [address]Dr. Airam Tripathi MCH (RBC) [Entitic mass] 30.1 pg Normal 26.7-34.0 [facility] Comment on above: Performed By: #### C BC ####[facility] Gtdkmxllmc[address] [place], [place] [address]Dr. Airam Tripathi MCHC (RBC) [Mass/Vol] 32.0 g/dL Normal 29.9-35.2 [facility] Comment on above: Performed By: #### C BC ####[facility] Unyrehxoqn[address] [place], [place] [id number]. Airam Tripathi MCV (RBC) [Entitic vol] 94.0 fL Normal 81.0-99.0 [facility] Comment on above: Performed By: #### C BC ####[facility] Fkojlpqkxt148[address] [place], [place] [address]Dr. Airam Deuce MONO # 0.4 103/ul Normal 0.3-0.8 [facility] Comment on above: Performed By: #### C BC ####[facility] Itsfdgawtr2029 [place] [id number]. Airam Tripathi Monocytes/100 WBC (Bld) 7.5 % Normal 1.7-12.0 [facility] Comment on above: Performed By: #### C BC ####[facility] Ninakbbgwq1258 [place] [id number]. Airam Tripathi NEUT # 3.5 103/ul Normal 1.4-6.5 [facility] Comment on above: Performed By: #### C BC ####[facility] Jyldaozdey3173 [place] [address]Dr. Airam Tripathi Neutrophils/100 WBC (Bld) 60.4 % Normal 43.0-75.0 [facility] Comment on above: Performed By: #### C BC ####[facility] Cxgwwwufim9007 [place] [address]Dr. Airam Tripathi Platelet mean volume (Bld) [Entitic vol] 10.0 fL Normal 9.5-13.5 [facility] Comment on above: Performed By: #### C BC ####[facility] Ahhcfijepp9293 [place] [address]Dr. Airam Tripathi PLT 300 103/ul Normal 150-450 [facility] Comment on above: Performed By: #### C BC ####[facility] Ybxmuoclwi6248 [place] [phone]. Airam Tripathi RBC 3.66 106/ul Critically low 4.20-5.40 [facility] Comment on above: Performed By: #### C BC ####[facility] Rdprdgbjgu104[address] [place], [place] [id number]. Airam Tripathi WBC 5.7 103/ul Normal 4.0-11.0 [facility] Comment on above: Performed By: #### C BC ####[facility] Huzmwkttky695[address] [place], [place] [address]Dr. Airam Tripathi PROF 14(COMP METB)on 022 Albumin [Mass/Vol] 3.3 g/dL Critically low 3.4-5.0 [facility] Comment on above: Performed By: #### C MP ####[facility] Jglehraqmq5794 [place] [address]Dr. Selenaneil Deuce Albumin/Globulin [Mass ratio] 1.0 {ratio} Normal [facility] Comment on above: Performed By: #### C MP ####[facility] Ugiyzreecz2766 [place] [address]Dr. Airam Tripathi ALP [Catalytic activity/Vol] 138 U/L Critically high 46-116 [facility] Comment on above: Performed By: #### C MP ####[facility] Vpsomjhxfw39[address] [place], [place] [address]Dr. Airam Tripathi ALT [Catalytic activity/Vol] 25 U/L Normal 14-59 [facility] Comment on above: Performed By: #### C MP ####[facility] Hwuvycccld147[address] [place], [place] [address]Dr. Airam Tripathi Anion gap [Moles/Vol] 14.0 mmol/L Normal [facility] Comment on above: Performed By: #### C MP ####[facility] Iknqluyldm4280[address] [place], [place] [address]Dr. Airam Tripathi AST [Catalytic activity/Vol] 19 U/L Normal 15-37 [facility] Comment on above: Performed By: #### C MP ####[facility] Xnpccnqfor660[address] [place], [place] [address]Dr. Airam Tripathi Bilirubin [Mass/Vol] 0.3 mg/dL Normal 0.2-1.0 [facility] Comment on above: Performed By: #### C MP ####[facility] Msdcowmuvh23[address] [place], [place] [address]Dr. Airam Tripathi Calcium [Mass/Vol] 8.7 mg/dL Normal 8.5-10.1 [facility] Comment on above: Performed By: #### C MP ####[facility] Qwnxhvfubi[address] [place], [place] [address]Dr. Airam Tripathi Chloride [Moles/Vol] 99 mmol/L Normal 98-107 [facility] Comment on above: Performed By: #### C MP ####[facility] Aoozkaqymm3705 [place] [address]Dr. Airam Tripathi CO2 [Moles/Vol] 25.4 mmol/L Normal 21.0-32.0 [facility] Comment on above: Performed By: #### C MP ####[facility] Efbavsxnfn8754 [place] [address]Dr. Airam Tripathi Creatinine [Mass/Vol] 1.22 mg/dL Critically high 0.55-1.02 [facility] Comment on above: Performed By: #### C MP ####[facility] Fakmoxvmek9829 [place] [id number]. Airam Tripathi EGFR-AF ARGENTINE 55 mL/min/1.73m2 Critically low >=60 [facility] Comment on above: Performed By: #### C MP ####[facility] Khxzlyvfzi5374 [place] [address]Dr. Airam Tripathi EGFR-NON AF ARGENTINE 45 mL/min/1.73m2 Critically low >=60 [facility] Comment on above: Performed By: #### C MP ####[facility] Ytoberfglp2852 [place] [address]Dr. Airam Tripathi Globulin (S) [Mass/Vol] 3.2 g/dL Normal [facility] Comment on above: Performed By: #### C MP ####[facility] Qlsxvzdqga4720 [place] [address]Dr. Airam Tripathi Glucose [Mass/Vol] 111 mg/dL Critically high 74-106 [facility] Comment on above: Performed By: #### C MP ####[facility] Fzxpwzucqa5146 [place] [address]Dr. Airam Tripathi Potassium [Moles/Vol] 4.4 mmol/L Normal 3.5-5.1 [facility] Comment on above: Performed By: #### C MP ####[facility] Zemfvcilyw1028 [place] [address]Dr. Airam Tripathi Protein [Mass/Vol] 6.5 g/dL Normal 6.4-8.2 [facility] Comment on above: Performed By: #### C MP ####[facility] Mhtoslxfwe4583 [place], [place] [address]Ll. Airam Tripathi Sodium [Moles/Vol] 134 mmol/L Critically low 136-145 [facility] Comment on above: Performed By: #### C MP ####[facility] Lnwsmbsibx1606 [place], [place] [address]Gx. Airam Tripathi Urea nitrogen [Mass/Vol] 27.0 mg/dL Critically high 7.0-18.0 [facility] Comment on above: Performed By: #### C MP ####[facility] Rbthyjmmxa2718 [place], [place] [address]Qz. Airam Tripathi Urea nitrogen/Creatinine [Mass ratio] 22.1 mg/mg Normal [facility] Comment on above: Performed By: #### C MP ####[facility] Gdlmjjioml1368 [place], [place] [address]Aw. Airam Tripathi CT CERVICAL SPINE WITHOUT CO NTRASTon 01-10-2022 CT CERVICAL SPINE WITHOUT CONTRAST [facility] Department of Radiology [address] [place] [id number] Patient Name: MABEL MOSER : 1960 [...] achievable. Electronically signed: Ayleen Ny. Transcribed by: [id number], User Resident: Electronically Signed by: AYLEEN NY @ 01/12/2022 12:32 PM Normal [facility] OSMOLALITYon 01-07-2022 Osmolality [Osmolality] 286 mosm/kg Normal 275-295 [facility] Comment on above: Performed By: #### O SMO ####[facility] Lwattnhjbh2102 [place] [id number] Tripathi CBC AUTO DIFFon 01-06-2022 BASO # 0.0 103/ul Normal 0.0-0.1 [facility] Comment on above: Performed By: #### C BC ####[facility] Nwhbxmuqsu3649 [place] [address]Dr. Airam Tripathi Basophils/100 WBC (Bld) 0.3 % Normal 0.2-2.0 [facility] Comment on above: Performed By: #### C BC ####[facility] Xnzzpxfppu248[address] [place], [place] [address]Dr. Airam Tripathi EO # 0.2 103/ul Normal 0.0-0.7 [facility] Comment on above: Performed By: #### C BC ####[facility] Pgwzpktktx36[address] [place], [place] [address]Dr. Airam Tripathi Eosinophils/100 WBC (Bld) 4.1 % Normal 0.9-7.0 [facility] Comment on above: Performed By: #### C BC ####[facility] Eokmndxwgr[address] [place], [place] [address]Dr. Airam Tripathi Erythrocyte distribution width (RBC) [Ratio] 12.9 % Normal 11.0-15.0 [facility] Comment on above: Performed By: #### C BC ####[facility] Kvtdwyzxyh2701[address] [place], [place] [address]Dr. Airam Tripathi Hematocrit (Bld) [Volume fraction] 34.2 % Critically low 36.0-48.0 [facility] Comment on above: Performed By: #### C BC ####[facility] Vtmvzvjtcw[address] [place], [place] [address]Dr. Airam Tripathi Hemoglobin (Bld) [Mass/Vol] 10.6 g/dL Critically low 12.0-16.0 [facility] Comment on above: Performed By: #### C BC ####[facility] Bdfvclimfx[address] [place], [place] [address]Dr. Airam Tripathi IG # 0.03 10e3/ul Normal 0.00-0.03 [facility] Comment on above: Performed By: #### C BC ####[facility] Cgnltlwhtn678[address] [place], [place] [address]Dr. Airam Tripathi IG % 0.5 % Normal 0.0-0.5 [facility] Comment on above: Performed By: #### C BC ####[facility] Hissamyjta7566 [place] [address]DrKianna Tripathi LYMPH # 1.1 103/ul Critically low 1.2-3.8 [facility] Comment on above: Performed By: #### C BC ####[facility] Cswukbohee9605 [place] [address]DrKianna Tripathi Lymphocytes/100 WBC (Bld) 18.2 % Critically low 20.5-60.0 [facility] Comment on above: Performed By: #### C BC ####[facility] Relnwqltdj997[address] [place], [place] [address]DrKianna Tripathi MANUAL DIFF REQ NO Normal [facility] Comment on above: Performed By: #### C BC ####[facility] Pepcznkuvw9[address] [place], [place] [address]DrKianna Tripathi MCH (RBC) [Entitic mass] 29.6 pg Normal 26.7-34.0 [facility] Comment on above: Performed By: #### C BC ####[facility] Taoxgkwzxl5560[address] [place], [place] [address]DrKianna Tripathi MCHC (RBC) [Mass/Vol] 31.0 g/dL Normal 29.9-35.2 [facility] Comment on above: Performed By: #### C BC ####[facility] Wreibhzhgy636[address] [place], [place] [address]DrKianna Tripathi MCV (RBC) [Entitic vol] 95.5 fL Normal 81.0-99.0 [facility] Comment on above: Performed By: #### C BC ####[facility] Zisifdlvfb317[address] [place], [place] [address]DrKianna Tripathi MONO # 0.5 103/ul Normal 0.3-0.8 [facility] Comment on above: Performed By: #### C BC ####[facility] Hfviryqhkw[address] [place], [place] [address]DrKianna Tripathi Monocytes/100 WBC (Bld) 8.5 % Normal 1.7-12.0 [facility] Comment on above: Performed By: #### C BC ####[facility] Shzvceubym9907 [place] [address]Dr. Airam Tripathi NEUT # 4.0 103/ul Normal 1.4-6.5 [facility] Comment on above: Performed By: #### C BC ####[facility] Ftrizyijmj9388 [place] [address]Dr. Airam Tripathi Neutrophils/100 WBC (Bld) 68.4 % Normal 43.0-75.0 [facility] Comment on above: Performed By: #### C BC ####[facility] Idhspczirt424[address] [place], [place] [address]Dr. Airam Tripathi Platelet mean volume (Bld) [Entitic vol] 10.1 fL Normal 9.5-13.5 [facility] Comment on above: Performed By: #### C BC ####[facility] Hudzhqtcgk[address] [place], [place] [address]Dr. Airam Tripathi PLT 304 103/ul Normal 150-450 [facility] Comment on above: Performed By: #### C BC ####[facility] Skkmaoedwa459[address] [place], [place] [address]Dr. Airam Tripathi RBC 3.58 106/ul Critically low 4.20-5.40 [facility] Comment on above: Performed By: #### C BC ####[facility] Dgyrtbcusc2237[address] [place], [place] [address]Dr. Airam Tripathi WBC 5.9 103/ul Normal 4.0-11.0 [facility] Comment on above: Performed By: #### C BC ####[facility] Uwcqublaon0601[address] [place], [place] [address]Dr. Airam Tripathi MG MAMM RT DIAG FUon 022 MG MAMM RT DIAG FU Normal [facility] PROF 14(COMP METB)on 022 Albumin [Mass/Vol] 3.1 g/dL Critically low 3.4-5.0 [facility] Comment on above: Performed By: #### C MP ####[facility] Ofsgbsefzs6831 [place] [id number]. Airam Tripathi Albumin/Globulin [Mass ratio] 1.0 {ratio} Normal [facility] Comment on above: Performed By: #### C MP ####[facility] Tukahnfgyp7288 [place] [id number]. Airam Tripathi ALP [Catalytic activity/Vol] 143 U/L Critically high 46-116 [facility] Comment on above: Performed By: #### C MP ####[facility] Ujsbsgmwlo2749 [place] [address]Dr. Airam Tripathi ALT [Catalytic activity/Vol] 23 U/L Normal 14-59 [facility] Comment on above: Performed By: #### C MP ####[facility] Sqnilyxcfz5817[address] [place], [place] [address]Dr. Selenaneil Deuce Anion gap [Moles/Vol] 13.2 mmol/L Normal [facility] Comment on above: Performed By: #### C MP ####[facility] Ftcuhuuuwt995[address] [place], [place] [address]Dr. Airam Deuce AST [Catalytic activity/Vol] 20 U/L Normal 15-37 [facility] Comment on above: Performed By: #### C MP ####[facility] Ahanoacrbc[address] [place], [place] [address]Dr. Airam Deuce Bilirubin [Mass/Vol] 0.3 mg/dL Normal 0.2-1.0 [facility] Comment on above: Performed By: #### C MP ####[facility] Bvdiygdrnj0467[address] [place], [place] [address]Dr. Airam Deuce Calcium [Mass/Vol] 8.2 mg/dL Critically low 8.5-10.1 [facility] Comment on above: Performed By: #### C MP ####[facility] Nebvtkkvdf989[address] [place], [place] [address]Dr. Airam Tripathi Chloride [Moles/Vol] 100 mmol/L Normal 98-107 [facility] Comment on above: Performed By: #### C MP ####[facility] Grkudvbwkx7713 [place] [address]Dr. Airam Tripathi CO2 [Moles/Vol] 26.0 mmol/L Normal 21.0-32.0 [facility] Comment on above: Performed By: #### C MP ####[facility] Rhhdikmgft9739 [place] [address]Dr. Airam Tripathi Creatinine [Mass/Vol] 1.52 mg/dL Critically high 0.55-1.02 [facility] Comment on above: Performed By: #### C MP ####[facility] Cqnhqkdghc25[address] [place], [place] [address]Dr. Airam Tripathi EGFR-AF ARGENTINE 42 mL/min/1.73m2 Critically low >=60 [facility] Comment on above: Performed By: #### C MP ####[facility] Aqpxkbkjou[address] [place], [place] [address]Dr. Airam Tripathi EGFR-NON AF ARGENTINE 35 mL/min/1.73m2 Critically low >=60 [facility] Comment on above: Performed By: #### C MP ####[facility] Bslbbydqla638[address] [place], [place] [address]Dr. Airam Tripathi Globulin (S) [Mass/Vol] 3.2 g/dL Normal [facility] Comment on above: Performed By: #### C MP ####[facility] Splsxnyirm8718[address] [place], [place] [address]Dr. Airam Tripathi Glucose [Mass/Vol] 84 mg/dL Normal 74-106 [facility] Comment on above: Performed By: #### C MP ####[facility] Oyntgxnwjl578[address] [place], [place] [address]Dr. Airam Tripathi Potassium [Moles/Vol] 4.2 mmol/L Normal 3.5-5.1 [facility] Comment on above: Performed By: #### C MP ####[facility] Jtnluszied135[address] [place], [place] [address]Dr. Airam Tripathi Protein [Mass/Vol] 6.3 g/dL Critically low 6.4-8.2 [facility] Comment on above: Performed By: #### C MP ####[facility] Pygmscokok5706 [place] [id number]. Airam Tripathi Sodium [Moles/Vol] 135 mmol/L Critically low 136-145 [facility] Comment on above: Performed By: #### C MP ####[facility] Ntttfmlgtn0587 [place] [address]Dr. Airam Tripathi Urea nitrogen [Mass/Vol] 36.0 mg/dL Critically high 7.0-18.0 [facility] Comment on above: Performed By: #### C MP ####[facility] Rogyoqibog5428 [place] [address]Dr. Airam Tripathi Urea nitrogen/Creatinine [Mass ratio] 23.7 mg/mg Normal [facility] Comment on above: Performed By: #### C MP ####[facility] Epqgxgtmcz604[address] [place], [place] [address]Dr. Airam Tripathi US BREAST RIGHT LIMITEDon US BREAST RIGHT LIMITED Normal [facility] OSMOLALITYon 12-31-2021 Osmolality [Osmolality] 280 mosm/kg Normal 275-295 [facility] Comment on above: Performed By: #### O SMO ####[facility] Bsmmrhfkhg654[address] [place], [place] [address]Dr. Airam Tripathi CBC AUTO DIFFon 12-30-2021 BASO # 0.0 103/ul Normal 0.0-0.1 [facility] Comment on above: Performed By: #### C BC ####[facility] Kzjqvdhdpe2790 [place] [address]Dr. Airam Tripathi Basophils/100 WBC (Bld) 0.5 % Normal 0.2-2.0 [facility] Comment on above: Performed By: #### C BC ####[facility] Inxurwoddh8906 [place] [address]Dr. Airam Tripathi EO # 0.3 103/ul Normal 0.0-0.7 [facility] Comment on above: Performed By: #### C BC ####[facility] Oaqyjjtapg5040[address] [place], [place] [address]Dr. Airam Tripathi Eosinophils/100 WBC (Bld) 3.5 % Normal 0.9-7.0 [facility] Comment on above: Performed By: #### C BC ####[facility] Sjydkqucul1625 [place] [address]Dr. Airam Tripathi Erythrocyte distribution width (RBC) [Ratio] 13.0 % Normal 11.0-15.0 [facility] Comment on above: Performed By: #### C BC ####[facility] Qyuczsxpao518[address] [place], [place] [address]Dr. Airam Tripathi Hematocrit (Bld) [Volume fraction] 34.2 % Critically low 36.0-48.0 [facility] Comment on above: Performed By: #### C BC ####[facility] Zdgrdelidx560[address] [place], [place] [address]Dr. Airam Tripathi Hemoglobin (Bld) [Mass/Vol] 10.4 g/dL Critically low 12.0-16.0 [facility] Comment on above: Performed By: #### C BC ####[facility] Wxlxzkzcxi933[address] [place], [place] [address]DrKianna Tripathi IG # 0.04 10e3/ul Critically high 0.00-0.03 [facility] Comment on above: Performed By: #### C BC ####[facility] Vkjrwivivp[address] [place], [place] [address]DrKianna Tripathi IG % 0.5 % Normal 0.0-0.5 [facility] Comment on above: Performed By: #### C BC ####[facility] Osdjykmpvx[address] [place], [place] [address]DrKianna Tripathi LYMPH # 2.1 103/ul Normal 1.2-3.8 [facility] Comment on above: Performed By: #### C BC ####[facility] Wmqjihfxqi5580[address] [place], [place] [address]DrKianna Tripathi Lymphocytes/100 WBC (Bld) 23.5 % Normal 20.5-60.0 [facility] Comment on above: Performed By: #### C BC ####[facility] Calckewgic99[address] [place], [place] [address]DrKianna Tripathi MANUAL DIFF REQ NO Normal [facility] Comment on above: Performed By: #### C BC ####[facility] Gfkqkgjbht3100 [place] [address]Dr. Airam Deuce MCH (RBC) [Entitic mass] 29.4 pg Normal 26.7-34.0 [facility] Comment on above: Performed By: #### C BC ####[facility] Namkgratyn4487 [place] [address]Dr. Airam Tripathi MCHC (RBC) [Mass/Vol] 30.4 g/dL Normal 29.9-35.2 [facility] Comment on above: Performed By: #### C BC ####[facility] Iyolzzmfex[address] [place], [place] [address]DrKianna Tripathi MCV (RBC) [Entitic vol] 96.6 fL Normal 81.0-99.0 [facility] Comment on above: Performed By: #### C BC ####[facility] Jkrlbcrink73[address] [place], [place] [address]DrKianna Tripathi MONO # 0.6 103/ul Normal 0.3-0.8 [facility] Comment on above: Performed By: #### C BC ####[facility] Wlvxezprdc747[address] [place], [place] [address]Dr. Airam Tripathi Monocytes/100 WBC (Bld) 6.4 % Normal 1.7-12.0 [facility] Comment on above: Performed By: #### C BC ####[facility] Dmkkabasuh97[address] [place], [place] [address]DrKianna Tripathi NEUT # 5.8 103/ul Normal 1.4-6.5 [facility] Comment on above: Performed By: #### C BC ####[facility] Jvvgyfyqfs1027[address] [place], [place] [address]DrKianna Tripathi Neutrophils/100 WBC (Bld) 65.6 % Normal 43.0-75.0 [facility] Comment on above: Performed By: #### C BC ####[facility] Lupvjnxawf06[address] [place], [place] [address]DrKianna Tripathi Platelet mean volume (Bld) [Entitic vol] 9.2 fL Critically low 9.5-13.5 [facility] Comment on above: Performed By: #### C BC ####[facility] Aflxqnvabt9588 [place] [address]Dr. Airam Tripathi PLT 338 103/ul Normal 150-450 [facility] Comment on above: Performed By: #### C BC ####[facility] Mwvpldvazs6316 [place] [address]Dr. Airam Tripathi RBC 3.54 106/ul Critically low 4.20-5.40 [facility] Comment on above: Performed By: #### C BC ####[facility] Tsskixrvkv3326 [place] [address]Dr. Airam Tripathi WBC 8.9 103/ul Normal 4.0-11.0 [facility] Comment on above: Performed By: #### C BC ####[facility] Jowmcmrnvj6644 [place] [address]Dr. Airam Tripathi MG MAMM SCREEN 3D GUMARO CADon 12-30-2021 MG MAMM SCREEN 3D GUMARO CAD Normal [facility] PROF 14(COMP METB)on 022 Albumin [Mass/Vol] 3.6 g/dL Normal 3.4-5.0 [facility] Comment on above: Performed By: #### C MP ####[facility] Hhvzrpzdun[address] [place], [place] [address]Dr. Airam Tripathi Albumin/Globulin [Mass ratio] 1.1 {ratio} Normal [facility] Comment on above: Performed By: #### C MP ####[facility] Bqvmvlvdbp9462 [place] [address]Dr. Airam Deuce ALP [Catalytic activity/Vol] 117 U/L Critically high 46-116 [facility] Comment on above: Performed By: #### C MP ####[facility] Ytrbrtwfzc2545 [place] [address]Dr. Airam Deuce ALT [Catalytic activity/Vol] 26 U/L Normal 14-59 [facility] Comment on above: Performed By: #### C MP ####[facility] Ivvyidqghw2636 [place] [address]Dr. Airam Tripathi Anion gap [Moles/Vol] 11.2 mmol/L Normal [facility] Comment on above: Performed By: #### C MP ####[facility] Ihteduuynn5343 [place] [address]Dr. Airam Tripathi AST [Catalytic activity/Vol] 29 U/L Normal 15-37 [facility] Comment on above: Performed By: #### C MP ####[facility] Mfxkuxsabg4544 [place] [address]Dr. Airam Tripathi Bilirubin [Mass/Vol] 0.3 mg/dL Normal 0.2-1.0 [facility] Comment on above: Performed By: #### C MP ####[facility] Eivhjpgbpf1109 [place] [address]Dr. Selenaneil Tripathi Calcium [Mass/Vol] 9.1 mg/dL Normal 8.5-10.1 [facility] Comment on above: Performed By: #### C MP ####[facility] Gikbqtomau[address] [place], [place] [address]Dr. Airam Deuce Chloride [Moles/Vol] 101 mmol/L Normal 98-107 [facility] Comment on above: Performed By: #### C MP ####[facility] Ohqitcthso4821 [place] [address]Dr. Airam Deuce CO2 [Moles/Vol] 26.8 mmol/L Normal 21.0-32.0 [facility] Comment on above: Performed By: #### C MP ####[facility] Znzrzimgos6038 [place] [address]Dr. Selenaneil Deuce Creatinine [Mass/Vol] 1.56 mg/dL Critically high 0.55-1.02 [facility] Comment on above: Performed By: #### C MP ####[facility] Wdmzqwakjx8995 [place] [address]Dr. Airam Deuce EGFR-AF ARGENTINE 41 mL/min/1.73m2 Critically low >=60 [facility] Comment on above: Performed By: #### C MP ####[facility] [facility] Kdalmnumzt[address] [place], [place] [address]Dr. Airam Tripathi EGFR-NON AF ARGENTINE 34 mL/min/1.73m2 Critically low >=60 [facility] Comment on above: Performed By: #### C MP ####[facility] [address]wez[address]ln[address] [place] [address]Dr. Airam Tripathi Globulin (S) [Mass/Vol] 3.3 g/dL Normal [facility] Comment on above: Performed By: #### C MP ####[facility] Muioyiketo4[address] [place] [address]Dr. Airam Tripathi Glucose [Mass/Vol] 84 mg/dL Normal 74-106 [facility] Comment on above: Performed By: #### C MP ####[facility] Wpurlrwnvr[address] [place], [place] [address]Dr. Airam Tripathi Potassium [Moles/Vol] 5.0 mmol/L Normal 3.5-5.1 [facility] Comment on above: Performed By: #### C MP ####[facility] Tzqrxuxdxa224[address] [place], [place] [address]Dr. Airam Tripathi Protein [Mass/Vol] 6.9 g/dL Normal 6.4-8.2 [facility] Comment on above: Performed By: #### C MP ####[facility] Zimgzdznfo49[address] [place], [place] [address]Dr. Airam Tripathi Sodium [Moles/Vol] 134 mmol/L Critically low 136-145 [facility] Comment on above: Performed By: #### C MP ####[facility] Pfphpvidaf30[address] [place], [place] [address]Dr. Airam Tripathi Urea nitrogen [Mass/Vol] 28.0 mg/dL Critically high 7.0-18.0 [facility] Comment on above: Performed By: #### C MP ####[facility] Jajoqcanpd[address] [place], [place] [address]Dr. Airam Tripathi Urea nitrogen/Creatinine [Mass ratio] 17.9 mg/mg Normal [facility] Comment on above: Performed By: #### C MP ####[facility] Jkllsplcmv13[address] [place], [place] [address]Dr. Airam Tripathi OSMOLALITYon 12-24-2021 Osmolality [Osmolality] 287 mosm/kg Normal 275-295 [facility] Comment on above: Performed By: #### O SMO ####[facility] Vuusunthny[address] [place] [address]Dr. Airam Tripathi CBC AUTO DIFFon 12-22-2021 BASO # 0.0 103/ul Normal 0.0-0.1 [facility] Comment on above: Performed By: #### C BC ####[facility] Bfxbyjauwo17[address] [place], [place] [address]Dr. Airam Tripathi Basophils/100 WBC (Bld) 0.5 % Normal 0.2-2.0 [facility] Comment on above: Performed By: #### C BC ####[facility] Viuqoumyex63[address] [place], [place] [address]Dr. Airam Tripathi EO # 0.4 103/ul Normal 0.0-0.7 [facility] Comment on above: Performed By: #### C BC ####[facility] Xgtjaqugvt8975[address] [place], [place] [address]Dr. Airam Tripathi Eosinophils/100 WBC (Bld) 6.4 % Normal 0.9-7.0 [facility] Comment on above: Performed By: #### C BC ####[facility] Vjdpvqjfav17[address] [place], [place] [address]Dr. Airam Tripathi Erythrocyte distribution width (RBC) [Ratio] 13.2 % Normal 11.0-15.0 [facility] Comment on above: Performed By: #### C BC ####[facility] Ifvcfxzlik0475[address] [place], [place] [address]Dr. Airam Tripathi Hematocrit (Bld) [Volume fraction] 32.2 % Critically low 36.0-48.0 [facility] Comment on above: Performed By: #### C BC ####[facility] Epqijgbfyh436[address] [place], [place] [address]Dr. Airam Tripathi Hemoglobin (Bld) [Mass/Vol] 10.1 g/dL Critically low 12.0-16.0 [facility] Comment on above: Performed By: #### C BC ####[facility] Oytkpsafzg8716 [place] [id number]. Selenaneil Tripathi IG # 0.03 10e3/ul Normal 0.00-0.03 [facility] Comment on above: Performed By: #### C BC ####[facility] Lnzpqzmjmh3229 [place] [id number]. Airam Tripathi IG % 0.5 % Normal 0.0-0.5 [facility] Comment on above: Performed By: #### C BC ####[facility] Vmwznmooqy9784 [place] [address]Dr. Airam Tripathi LYMPH # 1.3 103/ul Normal 1.2-3.8 [facility] Comment on above: Performed By: #### C BC ####[facility] Lovljdrkcr6707 [place] [address]Dr. Airam Tripathi Lymphocytes/100 WBC (Bld) 20.5 % Normal 20.5-60.0 [facility] Comment on above: Performed By: #### C BC ####[facility] Prvlanrvzx78[address] [place], [place] [address]Dr. Airam Tripathi MANUAL DIFF REQ NO Normal [facility] Comment on above: Performed By: #### C BC ####[facility] Yxqlqbdlzj8633 [place] [address]Dr. Selenaneil Tripathi MCH (RBC) [Entitic mass] 30.1 pg Normal 26.7-34.0 [facility] Comment on above: Performed By: #### C BC ####[facility] Bdsbbunlkm8930 [place] [address]Dr. Selenaneil Tripathi MCHC (RBC) [Mass/Vol] 31.4 g/dL Normal 29.9-35.2 [facility] Comment on above: Performed By: #### C BC ####[facility] Kworauhvvo3[address] [place] [address]Dr. Airam Tripathi MCV (RBC) [Entitic vol] 95.8 fL Normal 81.0-99.0 [facility] Comment on above: Performed By: #### C BC ####[facility] Luqrplvhka7935 [place] [id number]. Airam Tripathi MONO # 0.5 103/ul Normal 0.3-0.8 [facility] Comment on above: Performed By: #### C BC ####[facility] Fvobkjeyns0854 [place] [phone]. Airam Tripathi Monocytes/100 WBC (Bld) 7.4 % Normal 1.7-12.0 [facility] Comment on above: Performed By: #### C BC ####[facility] Fyotlfsmrs1543 [place] [phone]. Airam Tripathi NEUT # 3.9 103/ul Normal 1.4-6.5 [facility] Comment on above: Performed By: #### C BC ####[facility] Ftbotgrhlc9065 [place] [phone]. Airam Tripathi Neutrophils/100 WBC (Bld) 64.7 % Normal 43.0-75.0 [facility] Comment on above: Performed By: #### C BC ####[facility] Urhmtexdgy5709 [place] [phone]. Airam Tripathi Platelet mean volume (Bld) [Entitic vol] 9.2 fL Critically low 9.5-13.5 [facility] Comment on above: Performed By: #### C BC ####[facility] Qlgyxhvsxd2469 [place] [id number]. Airam Tripathi PLT 309 103/ul Normal 150-450 [facility] Comment on above: Performed By: #### C BC ####[facility] Ltzchqyibh0469 [place] [id number]. Airam Tripathi RBC 3.36 106/ul Critically low 4.20-5.40 [facility] Comment on above: Performed By: #### C BC ####[facility] Xgefdljdhl1774 [place] [phone]. Airam Tripathi WBC 6.1 103/ul Normal 4.0-11.0 [facility] Comment on above: Performed By: #### C BC ####[facility] Zhgiuktvff6775 [place] [phone]. Airam Tripathi PROF 14(COMP METB)on 022 Albumin [Mass/Vol] 3.2 g/dL Critically low 3.4-5.0 [facility] Comment on above: Performed By: #### C MP ####[facility] Lxaojmqbat4296 [place] [address]Dr. Airam Tripathi Albumin/Globulin [Mass ratio] 1.1 {ratio} Normal [facility] Comment on above: Performed By: #### C MP ####[facility] Opnrvtxyeq0445 [place] [address]Dr. Airam Tripathi ALP [Catalytic activity/Vol] 123 U/L Critically high 46-116 [facility] Comment on above: Performed By: #### C MP ####[facility] Mknbrxljks[address] [place], [place] [address]Dr. Airam Tripathi ALT [Catalytic activity/Vol] 26 U/L Normal 14-59 [facility] Comment on above: Performed By: #### C MP ####[facility] Qjvylervxz354[address] [place], [place] [address]Dr. Airam Tripathi Anion gap [Moles/Vol] 14.5 mmol/L Normal [facility] Comment on above: Performed By: #### C MP ####[facility] Dmfpyamxqz915[address] [place], [place] [address]Dr. Airam Tripathi AST [Catalytic activity/Vol] 23 U/L Normal 15-37 [facility] Comment on above: Performed By: #### C MP ####[facility] Rrnznirizc229[address] [place], [place] [address]Dr. Airam Tripathi Bilirubin [Mass/Vol] 0.3 mg/dL Normal 0.2-1.0 [facility] Comment on above: Performed By: #### C MP ####[facility] Tdlkqudlei712[address] [place], [place] [address]Dr. Airam Tripathi Calcium [Mass/Vol] 8.2 mg/dL Critically low 8.5-10.1 [facility] Comment on above: Performed By: #### C MP ####[facility] Jpqgadejet3822 [place] [address]Dr. Airam Tripathi Chloride [Moles/Vol] 102 mmol/L Normal 98-107 [facility] Comment on above: Performed By: #### C MP ####[facility] Dbasorofms1787 [place] [address]Dr. Airam Tripathi CO2 [Moles/Vol] 23.2 mmol/L Normal 21.0-32.0 [facility] Comment on above: Performed By: #### C MP ####[facility] Yoocdxcwjq328[address] [place], [place] [address]Dr. Airam Tripathi Creatinine [Mass/Vol] 1.98 mg/dL Critically high 0.55-1.02 [facility] Comment on above: Performed By: #### C MP ####[facility] Spalhunfmt9[address] [place], [place] [address]Dr. Airam Deuce EGFR-AF ARGENTINE 31 mL/min/1.73m2 Critically low >=60 [facility] Comment on above: Performed By: #### C MP ####[facility] Nhagpsfyvb[address] [place], [place] [address]Dr. Airam Tripathi EGFR-NON AF ARGENTINE 26 mL/min/1.73m2 Critically low >=60 [facility] Comment on above: Performed By: #### C MP ####[facility] Tdivqxiowb918[address] [place], [place] [address]Dr. Airam Deuce Globulin (S) [Mass/Vol] 3.0 g/dL Normal [facility] Comment on above: Performed By: #### C MP ####[facility] Txgsavjwuz540[address] [place], [place] [address]Dr. Airam Deuce Glucose [Mass/Vol] 131 mg/dL Critically high 74-106 [facility] Comment on above: Performed By: #### C MP ####[facility] Laijgfbxqk404[address] [place], [place] [address]Dr. Airam Deuce Potassium [Moles/Vol] 4.7 mmol/L Normal 3.5-5.1 [facility] Comment on above: Performed By: #### C MP ####[facility] Ypllylwsbo6034[address] [place], [place] [address]Dr. Airam Tripathi Protein [Mass/Vol] 6.2 g/dL Critically low 6.4-8.2 [facility] Comment on above: Performed By: #### C MP ####[facility] Ndmdqyrmhm9938[address] [place], [place] [address]Dr. Airam Tripathi Sodium [Moles/Vol] 135 mmol/L Critically low 136-145 [facility] Comment on above: Performed By: #### C MP ####[facility] Yrqqdxdnfk619[address] [place], [place] [address]Dr. Airam Tripathi Urea nitrogen [Mass/Vol] 37.0 mg/dL Critically high 7.0-18.0 [facility] Comment on above: Performed By: #### C MP ####[facility] Lcyhwfpdnr5668[address] [place], [place] [address]Dr. Airam Deuce Urea nitrogen/Creatinine [Mass ratio] 18.7 mg/mg Normal [facility] Comment on above: Performed By: #### C MP ####[facility] Kgbmwfdpen852[address] [place], [place] [address]Dr. Airam Tripathi OSMOLALITYon 12-18-2021 Osmolality [Osmolality] 271 mosm/kg Critically low 275-295 [facility] Comment on above: Performed By: #### O SMO ####[facility] Tubhstmxms[address] [place], [place] [address]Dr. Airam Tripathi CBC AUTO DIFFon 12-16-2021 BASO # 0.0 103/ul Normal 0.0-0.1 [facility] Comment on above: Performed By: #### C BC ####[facility] Exjtpcpkep196[address] [place], [place] [address]Dr. Airam Deuce Basophils/100 WBC (Bld) 0.6 % Normal 0.2-2.0 [facility] Comment on above: Performed By: #### C BC ####[facility] Gvelkwmbww4760[address] [place], [place] [address]Dr. Airam Deuce EO # 0.1 103/ul Normal 0.0-0.7 [facility] Comment on above: Performed By: #### C BC ####[facility] Vwquwujrmo2619 [place] [id number]. Airam Tripathi Eosinophils/100 WBC (Bld) 2.1 % Normal 0.9-7.0 [facility] Comment on above: Performed By: #### C BC ####[facility] Utorlixkal7687 [place] [phone]. Airam Tripathi Erythrocyte distribution width (RBC) [Ratio] 13.1 % Normal 11.0-15.0 [facility] Comment on above: Performed By: #### C BC ####[facility] Yzoqlzwhqc9[address] [place], [place] [id number]. Airam Tripathi Hematocrit (Bld) [Volume fraction] 33.8 % Critically low 36.0-48.0 [facility] Comment on above: Performed By: #### C BC ####[facility] Abzuhmxmjn8685[address] [place], [place] [address]Dr. Airam Tripathi Hemoglobin (Bld) [Mass/Vol] 10.7 g/dL Critically low 12.0-16.0 [facility] Comment on above: Performed By: #### C BC ####[facility] Syyvbotusp58[address] [place], [place] [address]Dr. Airam Tripathi IG # 0.02 10e3/ul Normal 0.00-0.03 [facility] Comment on above: Performed By: #### C BC ####[facility] Imqakjqtyq064[address] [place], [place] [address]Dr. Airam Tripathi IG % 0.3 % Normal 0.0-0.5 [facility] Comment on above: Performed By: #### C BC ####[facility] Sowhmyqjjx1260[address] [place], [place] [address]Dr. Airam Tripathi LYMPH # 1.2 103/ul Normal 1.2-3.8 [facility] Comment on above: Performed By: #### C BC ####[facility] Prqfryaeaw756[address] [place], [place] [address]Dr. Airam Tripathi Lymphocytes/100 WBC (Bld) 17.3 % Critically low 20.5-60.0 [facility] Comment on above: Performed By: #### C BC ####[facility] Owrhsytkbk2080 [place] [address]Dr. Airam Tripathi MANUAL DIFF REQ NO Normal [facility] Comment on above: Performed By: #### C BC ####[facility] Uvstrxiewo8859 [place] [address]Dr. Airam Tripathi MCH (RBC) [Entitic mass] 30.2 pg Normal 26.7-34.0 [facility] Comment on above: Performed By: #### C BC ####[facility] Jnzxprgxjx275[address] [place], [place] [address]Dr. Airam Tripathi MCHC (RBC) [Mass/Vol] 31.7 g/dL Normal 29.9-35.2 [facility] Comment on above: Performed By: #### C BC ####[facility] Hmbdthhzdw413[address] [place], [place] [address]Dr. Airam Tripathi MCV (RBC) [Entitic vol] 95.5 fL Normal 81.0-99.0 [facility] Comment on above: Performed By: #### C BC ####[facility] Hncnvuedno[address] [place], [place] [address]Dr. Airam Tripathi MONO # 0.5 103/ul Normal 0.3-0.8 [facility] Comment on above: Performed By: #### C BC ####[facility] Dtkxhbfcsw7914[address] [place], [place] [address]Dr. Airam Deuce Monocytes/100 WBC (Bld) 6.8 % Normal 1.7-12.0 [facility] Comment on above: Performed By: #### C BC ####[facility] Eroppfmjdk8[address] [place], [place] [address]Dr. Airam Tripathi NEUT # 4.9 103/ul Normal 1.4-6.5 [facility] Comment on above: Performed By: #### C BC ####[facility] Xeexfnmalt413[address] [place], [place] [address]Dr. Airam Tripathi Neutrophils/100 WBC (Bld) 72.9 % Normal 43.0-75.0 [facility] Comment on above: Performed By: #### C BC ####[facility] Vkysrvuklx4170 [place] [id number]. Airam Tripathi Platelet mean volume (Bld) [Entitic vol] 9.0 fL Critically low 9.5-13.5 [facility] Comment on above: Performed By: #### C BC ####[facility] Ldsirlauww2146 [place] [id number]. Airam Tripathi PLT 297 103/ul Normal 150-450 [facility] Comment on above: Performed By: #### C BC ####[facility] Lwiypzmwxj6993 [place] [address]Dr. Airam Tripathi RBC 3.54 106/ul Critically low 4.20-5.40 [facility] Comment on above: Performed By: #### C BC ####[facility] Zgjdamdmhe3346 [place] [address]Dr. Airam Tripathi WBC 6.8 103/ul Normal 4.0-11.0 [facility] Comment on above: Performed By: #### C BC ####[facility] Xoziysuegg1221 [place] [address]Dr. Airam Tripathi PROF 14(COMP METB)on 022 Albumin [Mass/Vol] 3.2 g/dL Critically low 3.4-5.0 [facility] Comment on above: Performed By: #### C MP ####[facility] Nyjnmyycnf6768 [place] [address]Dr. Airam Tripathi Albumin/Globulin [Mass ratio] 1.0 {ratio} Normal [facility] Comment on above: Performed By: #### C MP ####[facility] Ukyopnimnq9702 [place] [address]Dr. Airam Tripathi ALP [Catalytic activity/Vol] 109 U/L Normal 46-116 [facility] Comment on above: Performed By: #### C MP ####[facility] Nkxtjgkggb1810 [place] [address]Dr. Airam Tripathi ALT [Catalytic activity/Vol] 23 U/L Normal 14-59 [facility] Comment on above: Performed By: #### C MP ####[facility] Hpbookowav0767 [place] [id number]. Airam Tripathi Anion gap [Moles/Vol] 11.6 mmol/L Normal [facility] Comment on above: Performed By: #### C MP ####[facility] Lbubsefkzu5600 [place], [place] [address]Om. Airam Tripathi AST [Catalytic activity/Vol] 24 U/L Normal 15-37 [facility] Comment on above: Performed By: #### C MP ####[facility] Aactnvncqd7561 [place] [id number]. Airam Tripathi Bilirubin [Mass/Vol] 0.2 mg/dL Normal 0.2-1.0 [facility] Comment on above: Performed By: #### C MP ####[facility] Momiokaipi0657 [place] [id number]. Airam Tripathi Calcium [Mass/Vol] 8.6 mg/dL Normal 8.5-10.1 [facility] Comment on above: Performed By: #### C MP ####[facility] Npztsqbnjm5567 [place] [id number]. Airam Tripathi Chloride [Moles/Vol] 100 mmol/L Normal 98-107 [facility] Comment on above: Performed By: #### C MP ####[facility] Swfodzxmsk0741 [place] [id number]. Airam Tripathi CO2 [Moles/Vol] 24.7 mmol/L Normal 21.0-32.0 [facility] Comment on above: Performed By: #### C MP ####[facility] Fktscfrcxg9468 [place] [id number]. Airam Tripathi Creatinine [Mass/Vol] 1.11 mg/dL Critically high 0.55-1.02 [facility] Comment on above: Performed By: #### C MP ####[facility] Exkypmmnmn8376 [place] [id number]. Airam Tripathi EGFR-AF ARGENTINE >60 Normal >=60 [facility] Comment on above: Performed By: #### C MP ####[facility] Hqbpshcgay6154 [place] [address]Dr. Airam Tripathi EGFR-NON AF ARGENTINE 50 mL/min/1.73m2 Critically low >=60 [facility] Comment on above: Performed By: #### C MP ####[facility] Slobfvefvz5159 [place] [address]Dr. Airam Tripathi Globulin (S) [Mass/Vol] 3.1 g/dL Normal [facility] Comment on above: Performed By: #### C MP ####[facility] Qagorwprgr3712 [place] [address]Dr. Airam Tripathi Glucose [Mass/Vol] 79 mg/dL Normal 74-106 [facility] Comment on above: Performed By: #### C MP ####[facility] Qdfmysseiu10[address] [place], [place] [address]Dr. Airam Tripathi Potassium [Moles/Vol] 5.3 mmol/L Critically high 3.5-5.1 [facility] Comment on above: Performed By: #### C MP ####[facility] Ttqecstgon4622[address] [place], [place] [address]Dr. Airam Tripathi Protein [Mass/Vol] 6.3 g/dL Critically low 6.4-8.2 [facility] Comment on above: Performed By: #### C MP ####[facility] Yeyuehjisy915[address] [place], [place] [address]Dr. Airam Tripathi Sodium [Moles/Vol] 131 mmol/L Critically low 136-145 [facility] Comment on above: Performed By: #### C MP ####[facility] Owynnehylq730[address] [place], [place] [address]Dr. Airam Tripathi Urea nitrogen [Mass/Vol] 20.0 mg/dL Critically high 7.0-18.0 [facility] Comment on above: Performed By: #### C MP ####[facility] Gkdudealsn360[address] [place], [place] [address]Dr. Airam Tripathi Urea nitrogen/Creatinine [Mass ratio] 18.0 mg/mg Normal [facility] Comment on above: Performed By: #### C MP ####[facility] Qauugrwmam6434 [place] [address]Dr. Airam Tripathi OSMOLALITYon 12-09-2021 Osmolality [Osmolality] 279 mosm/kg Normal 275-295 [facility] Comment on above: Performed By: #### O SMO ####[facility] Zmhmbpeuio3417[address] [place], [place] [address]Dr. Airam Tripathi CBC AUTO DIFFon 12-07-2021 BASO # 0.0 103/ul Normal 0.0-0.1 [facility] Comment on above: Performed By: #### C BC ####[facility] Kfxvfudncm697[address] [place], [place] [address]Dr. Selenaneil Tripathi Basophils/100 WBC (Bld) 0.5 % Normal 0.2-2.0 [facility] Comment on above: Performed By: #### C BC ####[facility] Xvuvbippkj615[address] [place], [place] [address]Dr. Airam Tripathi EO # 0.4 103/ul Normal 0.0-0.7 [facility] Comment on above: Performed By: #### C BC ####[facility] Idjuyojbum9516[address] [place], [place] [address]Dr. Airam Tripathi Eosinophils/100 WBC (Bld) 6.3 % Normal 0.9-7.0 [facility] Comment on above: Performed By: #### C BC ####[facility] Jplnblwxwe8220[address] [place], [place] [address]Dr. Airam Tripathi Erythrocyte distribution width (RBC) [Ratio] 13.3 % Normal 11.0-15.0 [facility] Comment on above: Performed By: #### C BC ####[facility] Aiiymewfcs76[address] [place], [place] [address]Dr. Airam Tripathi Hematocrit (Bld) [Volume fraction] 29.5 % Critically low 36.0-48.0 [facility] Comment on above: Performed By: #### C BC ####[facility] Ltqagcbhok1864[address] [place], [place] [address]Dr. Airam Tripathi Hemoglobin (Bld) [Mass/Vol] 9.1 g/dL Critically low 12.0-16.0 [facility] Comment on above: Performed By: #### C BC ####[facility] Vaiwyvhzos0803 [place] [id number]. Airam Tripathi IG # 0.04 10e3/ul Critically high 0.00-0.03 [facility] Comment on above: Performed By: #### C BC ####[facility] Zhhljjmebr0037 [place] [id number]. Airam Tripathi IG % 0.7 % Critically high 0.0-0.5 [facility] Comment on above: Performed By: #### C BC ####[facility] Vwofwuwceh5830 [place] [address]Dr. Airam Tripathi LYMPH # 1.3 103/ul Normal 1.2-3.8 [facility] Comment on above: Performed By: #### C BC ####[facility] Quwtvknmcc9813 [place] [address]Dr. Airam Tripathi Lymphocytes/100 WBC (Bld) 20.9 % Normal 20.5-60.0 [facility] Comment on above: Performed By: #### C BC ####[facility] Tyvlqkmemk5928 [place] [address]Dr. Airam Tripathi MANUAL DIFF REQ NO Normal [facility] Comment on above: Performed By: #### C BC ####[facility] Plpohizkly640[address] [place], [place] [address]Dr. Airam Tripathi MCH (RBC) [Entitic mass] 30.1 pg Normal 26.7-34.0 [facility] Comment on above: Performed By: #### C BC ####[facility] Wcjyjgtkgc163[address] [place], [place] [address]Dr. Airam Tripathi MCHC (RBC) [Mass/Vol] 30.8 g/dL Normal 29.9-35.2 [facility] Comment on above: Performed By: #### C BC ####[facility] Mdyvbkjaut20[address] [place], [place] [address]Dr. Airam Tripathi MCV (RBC) [Entitic vol] 97.7 fL Normal 81.0-99.0 [facility] Comment on above: Performed By: #### C BC ####[facility] Hvlgdfxyiq7064 [place] [id number]. Airam Tripathi MONO # 0.4 103/ul Normal 0.3-0.8 [facility] Comment on above: Performed By: #### C BC ####[facility] Srnttagvhb1506 [place] [id number]. Airam Tripathi Monocytes/100 WBC (Bld) 6.6 % Normal 1.7-12.0 [facility] Comment on above: Performed By: #### C BC ####[facility] Tigznpbcnm3006 [place] [id number]. Airam Tripathi NEUT # 4.0 103/ul Normal 1.4-6.5 [facility] Comment on above: Performed By: #### C BC ####[facility] Keuekdfrsd[address] [place], [place] [address]Dr. Airam Tripathi Neutrophils/100 WBC (Bld) 65.0 % Normal 43.0-75.0 [facility] Comment on above: Performed By: #### C BC ####[facility] Ozdjaobrnc4861 [place] [address]Dr. Airam Tripathi Platelet mean volume (Bld) [Entitic vol] 9.4 fL Critically low 9.5-13.5 [facility] Comment on above: Performed By: #### C BC ####[facility] Xgkurzxois[address] [place], [place] [address]Dr. Airam Tripathi PLT 224 103/ul Normal 150-450 [facility] Comment on above: Performed By: #### C BC ####[facility] [address]rtrja[address] [place], [place] [id number]. Airam Tripathi RBC 3.02 106/ul Critically low 4.20-5.40 [facility] Comment on above: Performed By: #### C BC ####[facility] Tneaerocrf7973 [place] [address]Dr. Airam Tripathi WBC 6.1 103/ul Normal 4.0-11.0 [facility] Comment on above: Performed By: #### C BC ####[facility] Iijmoiypmx0950 [place] [address]Dr. Airam Tripathi PROF 14(COMP METB)on 022 Albumin [Mass/Vol] 2.8 g/dL Critically low 3.4-5.0 [facility] Comment on above: Performed By: #### C MP ####[facility] [address]tr[address] [place] [address]Dr. Airam Tripathi Albumin/Globulin [Mass ratio] 1.1 {ratio} Normal [facility] Comment on above: Performed By: #### C MP ####[facility] [address]ks[address] [place], [place] [address]Dr. Airam Tripathi ALP [Catalytic activity/Vol] 116 U/L Normal 46-116 [facility] Comment on above: Performed By: #### C MP ####[facility] Gfmusczrv[address] [place], [place] [address]Dr. Airam Tripathi ALT [Catalytic activity/Vol] 23 U/L Normal 14-59 [facility] Comment on above: Performed By: #### C MP ####[facility] S[address]xv[address] [place], [place] [address]Dr. Airam Tripathi Anion gap [Moles/Vol] 12.1 mmol/L Normal [facility] Comment on above: Performed By: #### C MP ####[facility] [address] [place], [place] [address]Dr. Airam Tripathi AST [Catalytic activity/Vol] 23 U/L Normal 15-37 [facility] Comment on above: Performed By: #### C MP ####[facility] Cqctcyvjsl[address] [place], [place] [address]Dr. Airam Tripathi Bilirubin [Mass/Vol] 0.2 mg/dL Normal 0.2-1.0 [facility] Comment on above: Performed By: #### C MP ####[facility] X[address] [place], [place] [address]Dr. Airam Tripathi Calcium [Mass/Vol] 8.1 mg/dL Critically low 8.5-10.1 [facility] Comment on above: Performed By: #### C MP ####[facility] [address] [place] [id number]. Airam Tripathi Chloride [Moles/Vol] 105 mmol/L Normal 98-107 [facility] Comment on above: Performed By: #### C MP ####[facility] F[address]lcork[address] [place] [id number]. Airam Tripathi CO2 [Moles/Vol] 22.1 mmol/L Normal 21.0-32.0 [facility] Comment on above: Performed By: #### C MP ####[facility] Xavjbzjgai[address] [place] [id number]. Airam Tripathi Creatinine [Mass/Vol] 1.06 mg/dL Critically high 0.55-1.02 [facility] Comment on above: Performed By: #### C MP ####[facility] [address]veilcpdw[address] [place] [address]Dr. Airam Tripathi EGFR-AF ARGENTINE >60 Normal >=60 [facility] Comment on above: Performed By: #### C MP ####[facility] [address]qklkylue[address] [place] [address]Dr. Airam Tripathi EGFR-NON AF ARGENTINE 53 mL/min/1.73m2 Critically low >=60 [facility] Comment on above: Performed By: #### C MP ####[facility] X[address]aroy[address] [place] [address]Dr. Airam Tripathi Globulin (S) [Mass/Vol] 2.6 g/dL Normal [facility] Comment on above: Performed By: #### C MP ####[facility] Qiagsgldzq[address] [place] [address]Dr. Airam Tripathi Glucose [Mass/Vol] 109 mg/dL Critically high 74-106 [facility] Comment on above: Performed By: #### C MP ####[facility] M[address]akvisexy[address] [place] [address]Dr. Airam Tripathi Potassium [Moles/Vol] 4.2 mmol/L Normal 3.5-5.1 [facility] Comment on above: Performed By: #### C MP ####[facility] Bntxyoiroc[address] [place] [id number]. Airam Tripathi Protein [Mass/Vol] 5.4 g/dL Critically low 6.4-8.2 [facility] Comment on above: Performed By: #### C MP ####[facility] Ryuedpqcnq[address] [place] [id number]. Airam Tripathi Sodium [Moles/Vol] 135 mmol/L Critically low 136-145 [facility] Comment on above: Performed By: #### C MP ####[facility] Ajjrxsbyfc[address] [place] [id number]. Airam Tripathi Urea nitrogen [Mass/Vol] 15.0 mg/dL Normal 7.0-18.0 [facility] Comment on above: Performed By: #### C MP ####[facility] [address] [place] [address]Dr. Airam Tripathi Urea nitrogen/Creatinine [Mass ratio] 14.2 mg/mg Normal [facility] Comment on above: Performed By: #### C MP ####[facility] Hzgckjfpgb65[address] [place] [id number]. Airam Tripathi Operative Reporton Operative Report MR#: [id number] S [facility] Pt. Name: Mabel Moser Room #: 0C [...] subscapularis. 3. Right shoulder proximal biceps tenotomy. 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 ANESTHESIA: General. INDICATIONS: The [...] Reza M.D. Date Trans: 08/19/2021 11:37 A/carter [id number] cc: Angle Santana M.D. [address], [facility] [address] Normal [facility] POC GLUCOSE LABon 08-19-2021 Glucose [Mass/Vol] 77 mg/dL Normal 70-100 [facility] Comment on above: Performed By: #### 8 [id number] #### [facility] [address] 04-05-2021 CNPN Telephone (ANDREW) -- MABEL MOSER ([id number]) 1960 F Date Time Provider Department 04/05/21 YEVGENIY FORD During your visit today, we recorded the following information about you: Chana Gallegos [facility] 04/05/2021 7:57 AM Signed Records faxed to the cancer center at [facility]. Patient to follow with Dr. Liu. [...] lumbar region, without neuroge*08/15/2016 Encounter Status:Closed by CATHRYN CARTER CHANA L on 04/05/21 [facility] OBSOLETEon 01-11-2021 OBSOLETE Refill (HEMASA) -- MABEL MOSER ([id number]) 1960 F Date Time Provider Department 01/11/21 [...] kidney disease) stage 3, GFR 30-59 ml/min ([facility]) [N18.30] Order(s):cyanocobalamin 1,000 mcg/mLINJECT 1 ML INTRAMUSCULARLY [...] Status:Closed by YEVGENIY FORD on 01/12/21 [facility] Vital Signs Date Time Vital Sign Value Performing Clinician Facility 07-03-2023 12:00-0500 Body temperature 97.9 [degF] MD Angle Santana Work Phone: [facility] 07-03-2023 12:00-0500 Diastolic blood pressure 71 mm[Hg] MD Angle Santana Work Phone: [facility] 07-03-2023 12:00-0500 Heart rate 68 /min MD Angle Santana Work Phone: [facility] 07-03-2023 12:00-0500 Respiratory rate 16 /min MD Angle Santana Work Phone: [facility] 07-03-2023 12:00-0500 SaO2% (BldA) [Mass fraction] 100 % MD Angle Santana Work Phone: [facility] 07-03-2023 12:00-0500 Systolic blood pressure 121 mm[Hg] MD Angle Santana Work Phone: [facility] 07-03-2023 04:49-0500 Body weight 85.8 kg MD Angle Santana Work Phone: [facility] 06-30-2023 14:44-0500 Body height 157.48 cm MD Angle Santana Work Phone: [facility] 04-04-2023 16:20-0400 Body height 158.75 cm Raeann Huntercristin Other [facility] [employer] Other 04-04-2023 16:20-0400 Body mass index (BMI) [Ratio] 31.46 kg/m2 Donnieariel [employer] Other [employer] Other 04-04-2023 16:20-0400 Body temperature 98 [degF] Raeann [employer] Other [employer] Other 04-04-2023 16:20-0400 Body weight 79.29 kg Donnieariel [employer] Other [employer] Other 04-04-2023 16:20-0400 Diastolic blood pressure 81 mm[Hg] Raeann Kirkpatrick Other [facility] [employer] Other 04-04-2023 16:20-0400 Respiratory rate 18 /min Raeann Kirkpatrick Other [facility] [employer] Other 04-04-2023 16:20-0400 SaO2% (BldA) [Mass fraction] 98 % Raeann Kirkpatrick Other [facility] [employer] Other 04-04-2023 16:20-0400 Systolic blood pressure 133 mm[Hg] Raeann Kirkpatrick Other [facility] [employer] Other 10-28-2022 22:23-0400 Body temperature 97.4 [degF] MD Angle Santana Work Phone: [facility] 10-28-2022 22:00-0400 Diastolic blood pressure 74 mm[Hg] MD Angle Santana Work Phone: [facility] 10-28-2022 22:00-0400 Heart rate 72 /min MD Angle Santana Work Phone: [facility] 10-28-2022 22:00-0400 Respiratory rate 20 /min MD Angle Santana Work Phone: [facility] 10-28-2022 22:00-0400 SaO2% (BldA) [Mass fraction] 97 % MD Angle Santana Work Phone: [facility] 10-28-2022 22:00-0400 Systolic blood pressure 169 mm[Hg] MD Angle Santana Work Phone: [facility] 10-28-2022 17:54-0400 Body height 157.48 cm MD Angle Santana Work Phone: [facility] 10-28-2022 17:54-0400 Body weight 83.7 kg MD Angle Santana Work Phone: [facility] 09-27-2022 12:00-0400 Body height 158.75 cm Azariel Bakhous Other [employer] Other 09-27-2022 12:00-0400 Body mass index (BMI) [Ratio] 31.78 kg/m2 Aziz Bakhous Other [employer] Other 09-27-2022 12:00-0400 Body temperature 96.1 [degF] Aziz Bakhous Other [employer] Other 09-27-2022 12:00-0400 Body weight 80.11 kg Aziz Bakhous Other [employer] Other 09-27-2022 12:00-0400 Diastolic blood pressure 82 mm[Hg] Aziz Bakhous Other [employer] Other 09-27-2022 12:00-0400 Respiratory rate 18 /min Aziz Bakhous Other [employer] Other 09-27-2022 12:00-0400 SaO2% (BldA) [Mass fraction] 99 % Aziz Bakhous Other [employer] Other 09-27-2022 12:00-0400 Systolic blood pressure 140 mm[Hg] Aziz Bakhous Other [employer] Other 04-12-2022 14:00-0400 Body height 158.75 cm Aziz Bakhous Other [employer] Other 04-12-2022 14:00-0400 Body mass index (BMI) [Ratio] 30.13 kg/m2 Aziz Bakhous Other [employer] Other 04-12-2022 14:00-0400 Body temperature 97.6 [degF] Raeann Mishras Other [employer] Other 04-12-2022 14:00-0400 Body weight 75.93 kg Raeann Mishras Other [employer] Other 04-12-2022 14:00-0400 Diastolic blood pressure 95 mm[Hg] Raeann Mishras Other [employer] Other 04-12-2022 14:00-0400 Respiratory rate 18 /min Raeann Kirkpatrick Other [employer] Other 04-12-2022 14:00-0400 SaO2% (BldA) [Mass fraction] 98 % Raeann Kirkpatrick Other [employer] Other 04-12-2022 14:00-0400 Systolic blood pressure 175 mm[Hg] Raeann Kirkpatrick Other [employer] Other 06-16-2021 16:20-0500 Body height 158.75 cm Bryonirvin Rascongerald Other [employer] Other 06-16-2021 16:20-0500 Body mass index (BMI) [Ratio] 30.88 kg/m2 Bryonirvin Praveena Other [employer] Other 06-16-2021 16:20-0500 Body temperature 96.4 [degF] Los Rascongerald Other [employer] Other 06-16-2021 16:20-0500 Body weight 77.84 kg Los Grissom Other [employer] Other 06-16-2021 16:20-0500 Diastolic blood pressure 88 mm[Hg] Los Grissom Other [employer] Other 06-16-2021 16:20-0500 Respiratory rate 18 /min Los Grissom Other [employer] Other 06-16-2021 16:20-0500 SaO2% (BldA) [Mass fraction] 99 % Los Grissom Other [employer] Other 06-16-2021 16:20-0500 Systolic blood pressure 137 mm[Hg] Los Grissom Other [employer] Other Encounters Encounter Date Encounter Type Care Provider Facility Start: 07-13-2023 ambulatory BENJIE HIDALGO [facility] Start: 07-11-2023 End: 07-11-2023 ambulatory Raeann Kirkpatrick Other [employer] Other Start: 07-11-2023 Telephone encounter Raeann [facility] Start: 06-29-2023 End: 07-03-2023 Evaluation and management of inpatient Jim Randhawa Facility:[facility] Start: 06-29-2023 End: 07-03-2023 Evaluation and management of inpatient MD Angle Santana Work Phone: [facility] Work Phone: Start: 04-04-2023 End: 04-04-2023 ambulatory Raeann Mishras Other [employer] Other Start: 04-04-2023 Office outpatient visit 25 minutes Azariel Mishras [facility] Start: 04-03-2023 End: 04-03-2023 ambulatory Azariel Mishras Other [employer] Other Start: 04-03-2023 Telephone encounter Azariel Mishras [facility] Start: 02-22-2023 End: 02-22-2023 ambulatory RHIANNON BERNARD [facility] Start: 02-16-2023 ambulatory DUNCAN DENNIS [facility] Start: 01-13-2023 End: 01-14-2023 ambulatory SHERLY ROSADO [facility] Start: 12-15-2022 End: 12-16-2022 ambulatory [facility] Start: 12-12-2022 End: 12-12-2022 ambulatory Azariel Bakhous Other [employer] Other Start: 12-12-2022 Telephone encounter Raeann Mishras [facility] Start: 12-08-2022 End: 12-08-2022 ambulatory Raeann Mishras Other [employer] Other Start: 12-08-2022 Telephone encounter Raeann Mishras [facility] Start: 11-30-2022 End: 11-30-2022 ambulatory [facility] Start: 11-22-2022 End: 11-22-[address] ANGLE SANTANA . Facility:[facility] Start: 11-22-2022 End: 11-22-2022 ambulatory NARENDRANATH LAKSHMIPATHY . Facility:[facility] Start: 11-16-2022 End: 11-16-[address] ANGLE SANTANA . Facility:[facility] Start: 11-07-2022 End: 11-07-2022 ambulatory [facility] Start: 11-04-2022 End: 11-05-2022 ambulatory NARENDRANATH LAKSHMIPATHY . Facility:[facility] Start: 11-03-2022 End: 11-03-[address] ANGLE SANTANA . Facility:[facility] Start: 10-31-2022 ambulatory SANTOS ONELIA . Facili ty:[facility] Start: 10-28-2022 End: 10-29-2022 Emergency department patient visit Favian Helm Facility:[facility] Start: 10-28-2022 End: 10-28-2022 Emergency department patient visit MD Angle Santana Work Phone: [facility] Work Phone: Start: 10-28-2022 End: 10-28-2022 ambulatory [facility] Start: 10-27-2022 End: 10-28-2022 ambulatory SADIE DEL CASTILLO . Facility:[facility] Start: 10-25-2022 End: 10-26-2022 Evaluation and management of inpatient DR ANGLE SANTANA . Facility:[facility] Start: 10-19-2022 End: 10-19-[address] ANGLE SANTANA . Facility:[facility] Start: 10-12-2022 End: 10-13-[address] ANGLE SANTANA . Facility:[facility] Start: 10-12-2022 End: 10-12-2022 ambulatory FELECIA MILIAN . Facility:[facility] Start: 10-11-2022 End: 10-11-2022 ambulatory SADIE DEL CASTILLO . Facility:[facility] Start: 10-10-2022 End: 10-10-2022 ambulatory ZANDRA [facility] Start: 10-05-2022 End: 10-07-[address] ANGLE SANTANA . Facility:[facility] Start: 10-05-2022 ambulatory FELECIA MILIAN . Facility: [facility] Start: 09-29-2022 End: 10-04-[address] ANGLE SANTANA . Facility:[facility] Start: 09-27-2022 End: 09-27-2022 ambulatory Raeann Kirkpatrick Other [employer] Other Start: 09-27-2022 Office outpatient visit 25 minutes Raeann Kirkpatrick [facility] [place] Start: 09-21-2022 End: 09-22-[address] ANGLE SANTANA . Facility:[facility] Start: 09-20-2022 End: 09-21-2022 ambulatory SALOMECHERRIE HUMACONSTANTINO . Facility:[facility] Start: 09-19-2022 End: 09-20-[address] ANGLE SANTANA . Facility:[facility] Start: 09-19-2022 End: 09-20-2022 ambulatory RAEANN ALEJANDRA Facility:[facility] Start: 08-24-2022 End: 09-12-[address] ANGLE SANTANA . Facility:[facility] Start: 08-23-2022 End: 08-23-2022 ambulatory Sue Leiva Other [employer] Other Start: 08-23-2022 Office outpatient ne w 30 minutes Sue Leiva [facility] Start: 08-16-2022 End: 08-17-[address] ANGLE SANTANA . Facility:[facility] Start: 08-06-2022 End: 08-06-2022 ambulatory NIKKIE CHANDRA . Facility:[facility] Start: 07-27-2022 End: 07-28-2022 ambulatory [...] . Facility:[facility] Start: 04-12-2022 End: 04-12-2022 ambulatory Donnieariel Tadjohnnie Other [employer] Other Start: 04-12-2022 Office outpatient visit 25 minutes Raeann Harrisoncristin [facility] [place] Start: 04-06-[address] ANGLE SANTANA . Facili ty:[facility] Start: 03-31-2022 End: 04-20-[address] ANGLE SANTANA . Facility:[facility] Start: 03-03-2022 End: 03-22-[address] ANGLE SANTANA . Facility:[facility] Start: 01-27-2022 End: 01-28-[address] NAGLE SANTANA . Facility:[facility] Start: 01-27-2022 End: 02-22-[address] ANGLE SANTANA . Facility:[facility] Start: 01-19-2022 End: 01-20-2022 ambulatory ROBERT JOHNSTON Facility:[facility] Start: 01-11-2022 End: 01-11-[address] ANGLE SANTANA . Facility:[facility] Start: 01-10-2022 End: 01-11-2022 ambulatory Robert Johnston Facility:[facility] Start: 01-06-2022 End: 01-07-[address] ANGLE SANTANA . Facility:[facility] Start: 12-30-2021 End: 01-19-[address] ANGLE SANTANA . Facility:[facility] Start: 12-23-2021 End: 12-24-2021 ambulatory NNAMDI DEJESUS . Facility:[facility] Start: 12-07-2021 End: 12-22-[address] ANGLE SANTANA . Facility:[facility] Start: 12-07-2021 End: 12-07-[address] ANGLE SANTANA . Facility:[facility] Start: 08-19-2021 End: 08-20-2021 ambulatory CARLOS REZA Facility:[facility] Start: 06-16-2021 End: 06-16-2021 ambulatory Los Grissom Other [employer] Other Start: 06-16-2021 Office outpatient visit 25 minutes Los Grissom [facility] Start: 01-14-2019 End: 01-14-2019 Patient encounter procedure [facility] Start: 12-03-2018 End: 12-03-2018 Patient encounter procedure [facility] Procedures Date Procedure Procedure Detail Performing Clinician Start: 10-28-2022 CT of head without contrast MD Angle Santana Work Phone: Start: 10-28-2022 Plain chest X-ray MD Romero Work Phone: Start: 01-14-2019 DISCHARGE PATIENT NIRMAL LEWIS Start: 01-14-2019 DIET NPO, NOW NIRMAL VICKEY G Start: 01-14-2019 FULL CODE NIRMAL Start: 01-14-2019 INITIATE OXYGEN THER APY PROTOCOL NIRMAL Start: 01-14-2019 NOTIFY PHYSICIAN (SPECIFY) NIRMAL LEWIS Start: 01-14-2019 NURSING COMMUNICATION Nikita LEWIS Start: 01-14-2019 VERIFY INFORMED CONSENT NIRMAL Start: 01-14-2019 VITAL SIGNS NIRMAL LEWIS Start: 12-03-2018 DISCHARGE PATIENT NIRMAL LEWIS Start: 12-03-2018 DIET NPO, NOW NIRMAL VICKEY G Start: 12-03-2018 FULL CODE NIRMAL Start: 12-03-2018 INITIATE OXYGEN THER APY PROTOCOL NIRMAL Start: 12-03-2018 NOTIFY PHYSICIAN (SPECIFY) NIRMAL LEWIS Start: 12-03-2018 NURSING COMMUNICATION Nikita LEWIS Start: 12-03-2018 VERIFY INFORMED CONSENT NIRMAL Start: 12-03-2018 VITAL SIGNS NIRMAL LEWIS Plan of Treatment Date Care Activity Detail Author Start: 07-03-2023 [facility] Start: 06-29-2023 Hospital admission [facility] Start: 06-29-2023 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 [facility] Blood chemistry [facility] Patient Education [facility] Work Phone: Patient referral [facility] Work Phone: Payers Date Payer Category Payer Medicare [id number] 2022 Self-pay [id number] 2017 Medicare [id number] 2017 Unknown [id number] 1960 Unknown [id number] 2.16.8 40.1.697953.3.579.2.173 1960 Unknown [id number] 2.16.8 40.1.650385.3.579.2.173 1962 Unknown [id number] 2.16.8 40.1.226584.3.579.2.647 1962 Unknown [id number] 2.16.8 40.1.504781.3.579.2.647 1962 Unknown [id number] 2.16.84 0.1.118680.3.579.2.593 1962 Unknown [id number] 2.16.84 0.1.697253.3.579.2.593 1962 Unknown [id number] 2.16.84 0.1.571744.3.579.2.593 1962 Unknown [id number] 2.16.84 0.1.963533.3.579.2.593 1962 Unknown [id number] 2.16.84 0.1.197249.3.579.2.593 1962 Unknown [id number] 2.16.84 0.1.957811.3.579.2.593 1962 Unknown [id number] 2.16.84 0.1.761293.3.579.2.593 1962 Unknown [id number] 2.16.84 0.1.290620.3.579.2.593 1962 Unknown [id number] 2.16.84 0.1.877846.3.579.2.593 1962 Unknown [id number] 2.16.84 0.1.477231.3.579.2.593 1962 Unknown [id number] 2.16.84 0.1.527504.3.579.2.593 1962 Unknown [id number] 2.16.84 0.1.991268.3.579.2.593 1962 Unknown [id number] 2.16.84 0.1.079430.3.579.2.593 1962 Unknown [id number] 2.16.84 0.1.326212.3.579.2.593 1962 Unknown [id number] 2.16.84 0.1.736573.3.579.2.593 1962 Unknown [id number] 2.16.84 0.1.995994.3.579.2.593 1962 Unknown [id number] 2.16.84 0.1.767086.3.579.2.593 1962 Unknown [id number] 2.16.84 0.1.884386.3.579.2.593 1962 Unknown [id number] 2.16.84 0.1.374586.3.579.2.593 1962 Unknown [id number] 2.16.84 0.1.432805.3.579.2.593 1962 Unknown [id number] 2.16.84 0.1.038947.3.579.2.593 1962 Unknown [id number] 2.16.84 0.1.138865.3.579.2.593 1962 Unknown [id number] 2.16.84 0.1.413088.3.579.2.593 1962 Unknown [id number] 2.16.84 0.1.594516.3.579.2.593 1962 Unknown [id number] 2.16.84 0.1.203610.3.579.2.593 1962 Unknown [id number] 2.16.84 0.1.455906.3.579.2.593 1962 Unknown [id number] 2.16.84 0.1.001142.3.579.2.593 1962 Unknown [id number] 2.16.84 0.1.995113.3.579.2.593 1962 Unknown [id number] 2.16.84 0.1.741532.3.579.2.593 1962 Unknown [id number] 2.16.84 0.1.876739.3.579.2.593 1962 Unknown [id number] 2.16.84 0.1.177741.3.579.2.593 1962 Unknown [id number] 2.16.84 0.1.474359.3.579.2.593 1962 Unknown [id number] 2.16.84 0.1.569996.3.579.2.593 1962 Unknown [id number] 2.16.84 0.1.210206.3.579.2.593 1962 Unknown [id number] 2.16.84 0.1.636154.3.579.2.593 1962 Unknown [id number] 2.16.84 0.1.430209.3.579.2.593 1962 Unknown [id number] 2.16.84 0.1.254158.3.579.2.593 1962 Unknown [id number] 2.16.84 0.1.089982.3.579.2.593 1962 Unknown [id number] 2.16.84 0.1.842347.3.579.2.593 1962 Unknown [id number] 2.16.84 0.1.424639.3.579.2.593 1962 Unknown [id number] 2.16.84 0.1.616243.3.579.2.593 1962 Unknown [id number] 2.16.84 0.1.678240.3.579.2.593 1962 Unknown [id number] 2.16.84 0.1.153260.3.579.2.593 1962 Unknown [id number] 2.16.84 0.1.177572.3.579.2.593 1962 Unknown [id number] 2.16.84 0.1.939596.3.579.2.593 1962 Unknown [id number] 2.16.84 0.1.741128.3.579.2.593 1959 Medicaid [id number] Unknown [id number] 2.1 6.840.1.436009.19 Unknown Aron ROSALES/HILARIA [id number] Unknown [id number] 2.16.8 40.1.436555.3.579.2.531 Unknown [id number] 2.16.8 40.1.495828.3.579.2.531 Social History Date Type Detail Facility Unknown if ever smoked [employer] Other Sex Assigned At Sex Assigned At Bir th [employer] Other Start: 10-28-2022 End: 06-30-2023 Tobacco smoking status NHIS Never smoked tobacco (finding) [facility] Start: 1960 Sex Assigned At Female F [facility] Goals Date Patient Goal Desired Activity /State Functional Status Date Assessment Result Facility 07-03-2023 Functional status Patient at Baseline [facility] Work Phone: Mental Status Date Assessment Result Facility 07-03-2023 Cognitive function Cognitive Sta tus Patient at Baseline [facility] Work Phone: Clinical Notes 06-16-2021 to 07-13-2023 Note Date & Type Note Facility 07-13-2023 Note [facility] Subjective Mabel Moser is a 63 y.o. year old female patient being seen for 6 mo follow up chronic diastolic heart failure, CKD, and CAD. Says she saw Dr. Santana yesterday and he raised her spironolactone to 100mg, which she takes PRN. She was seen in [facility] ED 2 weeks ago for LE edema and SOB. She is feeling better, and JO is improving. She denies chest pain, palpitations, lightheadedness, and bleeding on Eliquis. 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 Fluid overload Dehydration Cortical age-related cataract of left eye COVID-19 Displacement of lumbar intervertebral disc without myelopathy Edema of lower extremity Edema Orthopnea Dyspnea Endogenous obesity Essential tremor Chronic diastolic heart failure, NYHA class 2 ([facility]) H/O gastric bypass Gouty arthropathy Gastroesophageal reflux [...] as late effect of cerebral infarction (CMS/HCC) Pre-operative cardiovascular examination Family History Family history unknown: Yes Social History Tobacco Use Smoking status: Never Smokeless tobacco: Never Substance Use Topics Alcohol use: Not Currently Drug use: Not Currently HPI Mabel is seen in follow-up. She is a 63-year-old woman with prior history of obesity status post bariatric surgery in 1999. In the past she was admitted to [facility] in 2019 with fluid overload and responded to diuresis. Prior evaluation included cardiac catheterization in 2016 that showed mild coronary artery disease with mildly elevated right-sided pressures and wedge pressure. She had normal ventricular function by echocardiography. Pulmonary VQ scan was negative for pulmonary embolism. She has was seen in our office on 10/28/2022 and she was having headache and recent echocardiogram had shown severely elevated right-sided pressures and her blood work showed acute renal insufficiency. She was sent to the emergency room. Her blood pressure and pain both improved. CT scan of the head was negative. Chest x-ray was negative. She was discharged from the emergency room. After visit with me on 11/07/2022 I proceeded with right heart catheterization that showed mild elevation of filling pressures and mild pulmonary hypertension. She was recommended to take additional Bumex as needed to maintain stable weight. She recently was admitted to the hospital with worsening lower extremity edema and weight gain. Her diuretics therapy was intensified. She is currently taking bumetanide 1 mg 3 times daily, Entresto as well as spironolactone 100 mg daily. Recent BMP showed worsening renal function with elevated BUN and creatinine. Review of Systems Constitutional: Positive for malaise/fatigue and weight gain (25# since 02/22/2023). Cardiovascular: Positive for dyspnea on exertion (improving) and leg swelling. Musculoskeletal: Positive for arthritis, back pain and joint pain. Neurological: Positive for loss of balance. All other systems reviewed and a (more content not included)... [facility] 07-03-2023 Progress note Note Date/Time July 03, 2023 12:18pm [facility] [address] [place] [address] Nephrology Progress Note Signed Patient: Mabel Moser MR#: [id number] : 1960 Acct:[id number] Age/Sex: 63 / F Adm Date: 4 Loc: Room: [address] [place] [address] Type: ADM IN Attending Dr: Jim Randhawa [...] 50 Mg Tablet) 150 mg PO QHS [facility] Stop: 06/29/24 21:59 Last Admin: 07/02/23 21:00 Dose: 150 mg Aripiprazole (Aripiprazole 2 Mg Tablet) 2 mg PO DAILY [facility] Stop: 06/29/24 08:59 Last Admin: 07/03/23 08:13 Dose: 2 mg Bisacodyl (Bisacodyl 5 Mg Tablet.) 10 mg PO DAILY PRN PRN Reason: Constipation Stop: 06/28/24 21:34 Bumetanide (Bumetanide 1 Mg/4 Ml Vial) 1 mg IV-PUSH BID@0800,1600 [facility] Stop: 06/29/24 07:59 Last Admin: 07/03/23 08:14 Dose: 1 mg Calcium Acetate (Calcium Acetate 667 Mg Capsule) 667 mg PO BID.WITH.MEALS [facility]EN Stop: 06/29/24 07:59 Last Admin: 07/03/23 08:13 Dose: 667 mg Duloxetine HCl (Duloxetine 60 Mg Capsule.) 120 mg PO DAILY [facility] Stop: 06/29/24 08:59 Last Admin: 07/03/23 08:13 Dose: 120 mg Fentanyl (Fentanyl Patch 100 Mcg/Hour Patch.Td72) 100 mcg TRANSDERML Q72H [facility]; Protocol Last Admin: 07/03/23 08:12 Dose: 100 mcg Ferrous Sulfate (Ferrous Sulfate 324 Mg Tablet.Dr) 324 mg PO DAILY [facility] Stop: 06/29/24 08:59 Last Admin: 07/03/23 08:13 Dose: 324 mg Gabapentin (Gabapentin 100 Mg Capsule) 100 mg PO TID [facility] Stop: 06/29/24 08:59 Last Admin: 07/03/23 08:13 Dose: 100 mg Guaifenesin/Dextromethorphan (Guaif/Dextromethorphan Syrup 10 Ml Udc) 10 ml PO Q8H PRN PRN Reason: Cough Stop: 06/28/24 21:34 Heparin Sodium (Porcine) (Heparin 5,000 Unit/Ml Vial) 5,000 unit SUBCUT Q12HR [facility] Stop: 06/29/24 08:59 Last Admin: 07/03/23 08:14 Dose: 5,000 unit Levothyroxine Sodium (Levothyroxine 100 Mcg Tablet) 100 mcg PO DAILY@0630 [facility] Stop: 06/29/24 06:29 Last Admin: 07/03/23 06:23 Dose: 100 mcg Linaclotide (Linaclotide 290 Mcg Capsule) 290 mcg PO Q48HR [facility] Stop: 06/29/24 08:59 Last Admin: 07/02/23 08:59 Dose: 290 mcg Liothyronine Sodium (Liothyronine 25 Mcg Tablet) 25 mcg PO DAILY@0630 [facility] Stop: 06/29/24 10:59 Last Admin: 07/03/23 06:23 Dose: 25 mcg Loratadine (Loratadine 10 Mg Tablet) 10 mg PO DAILY PRN PRN Reason: Allergy Symptoms Stop: 06/29/24 06:54 Melatonin (Melatonin 5 Mg Tablet) 5 mg PO QHS PRN PRN Reason: Insomnia Stop: 06/28/24 21:34 Metoprolol Tartrate (Metoprolol Tartrate 25 Mg Tablet) 25 mg PO BID [facility] Stop: 06/29/24 20:59 Last Admin: [...] BID [facility] Stop: 06/29/24 08:59 Last Admin: 07/03/23 08:13 Dose: 40 mg Primidone (Primidone 50 Mg Tablet) 100 mg PO HS [facility] Stop: 06/29/24 21:59 Last Admin: 07/02/23 21:00 Dose: 100 mg Sevelamer Carbonate (Sevelamer Carbonate 800 Mg Tablet) 800 mg PO TID.WITH.MEALS [facility] Stop: 06/29/24 11:59 Last Admin: 07/03/23 11:22 [...] <Electronically signed by Raeann Kirkpatrick MD> 07/03/23 5231 [facility] Work Phone: 1([phone] 517-625501-07-2024 Progress note Author Jim Randhawa [facility] July 02, 2023 11:26am Note Date/Time July 02, 2023 11 :26am [facility] [address] [place] [address] Hospitalist Progress Note Signed Patient: Mabel Moser MR#: [id number] : 1960 Acct:[id number] Age/Sex: 63 / F Adm Date: 4 Loc: 3T Room: [address] [place] [address] Type: ADM IN Attending Dr: Jim Randhawa [...] Dose Route Start Last Admin Trade Name Jaskaranq PRN Reason Stop Dose Admin Acetaminophen 650 [...] 09:00 07/02/23 08:55 Ferrous Sulfate 324 Mg Tablet.Dr MCMANUS 06/29/24 08:59 324 mg DAILY LOREN Administration [...] 09:00 07/02/23 08:55 Pantoprazole 40 Mg Tablet.Dr MCMANUS 06/29/24 08:59 40 mg BID LOREN Administration [...] <Electronically signed by Jim Randhawa DO> 07/02/23 1126 [facility] Work Phone: 1([phone] 473-124401-07-2024 Progress note Author Los Grissom [facility] July 02, 2023 10:42am Note Date/Time July 02, 2023 10 :42am [facility] [address] [place] [address] Nephrology Progress Note Signed Patient: Mabel Moser MR#: [id number] : 1960 Acct:[id number] Age/Sex: 63 / F Adm Date: 4 Loc: Room: [address] [place] [address] Type: ADM IN Attending Dr: Jim Randhawa [...] mg PO QHS [facility] Stop: 06/29/24 21:59 Last Admin: 07/01/23 21:21 Dose: 150 mg Aripiprazole (Aripiprazole 2 Mg Tablet) 2 mg PO DAILY [facility] Stop: 06/29/24 08:59 Last Admin: 07/02/23 08:55 Dose: 2 mg Bisacodyl (Bisacodyl 5 Mg Tablet.Dr) 10 mg PO DAILY PRN PRN Reason: Constipation Stop: 06/28/24 21:34 Bumetanide (Bumetanide 1 Mg/4 Ml Vial) 1 mg IV-PUSH BID@0800,1600 [facility] Stop: 06/29/24 07:59 Last Admin: 07/02/23 08:55 Dose: 1 mg Calcium Acetate (Calcium Acetate 667 Mg Capsule) 667 mg PO BID.WITH.MEALS [facility] Stop: 06/29/24 07:59 Last Admin: 07/02/23 08:55 Dose: 667 mg Duloxetine HCl (Duloxetine 60 Mg Capsule.) 120 mg PO DAILY [facility] Stop: 06/29/24 08:59 Last Admin: 07/02/23 08:59 Dose: 120 mg Fentanyl (Fentanyl Patch 100 Mcg/Hour Patch.Td72) 100 mcg TRANSDERML Q72H [facility]; Protocol Last Admin: 06/30/23 09:31 Dose: 100 mcg Ferrous Sulfate (Ferrous Sulfate 324 Mg Tablet.) 324 mg PO DAILY [facility] Stop: 06/29/24 08:59 Last Admin: 07/02/23 08:55 Dose: 324 mg Gabapentin (Gabapentin 100 Mg Capsule) 100 mg PO TID [facility] Stop: 06/29/24 08:59 Last Admin: 07/02/23 08:55 Dose: 100 mg Guaifenesin/Dextromethorphan (Guaif/Dextromethorphan Syrup 10 Ml Udc) 10 ml PO Q8H PRN PRN Reason: Cough Stop: 06/28/24 21:34 Heparin Sodium (Porcine) (Heparin 5,000 Unit/Ml Vial) 5,000 unit SUBCUT Q12HR [facility] Stop: 06/29/24 08:59 Last Admin: 07/02/23 08:55 Dose: 5,000 unit Levothyroxine Sodium (Levothyroxine 100 Mcg Tablet) 100 mcg PO DAILY@0630 [facility] Stop: 06/29/24 06:29 Last Admin: 07/02/23 05:48 Dose: 100 mcg Linaclotide (Linaclotide 290 Mcg Capsule) 290 mcg PO Q48HR [facility] Stop: 06/29/24 08:59 Last Admin: 07/02/23 08:59 Dose: 290 mcg Liothyronine Sodium (Liothyronine 25 Mcg Tablet) 25 mcg PO DAILY@0630 [facility] Stop: 06/29/24 10:59 Last Admin: 07/02/23 05:48 Dose: 25 mcg Loratadine (Loratadine 10 Mg Tablet) 10 mg PO DAILY PRN PRN Reason: Allergy Symptoms Stop: 06/29/24 06:54 Melatonin (Melatonin 5 Mg Tablet) 5 mg PO QHS PRN PRN Reason: Insomnia Stop: 06/28/24 21:34 Metoprolol Tartrate (Metoprolol Tartrate 25 Mg Tablet) 25 mg PO BID [facility] Stop: 06/29/24 20:59 Last Admin: 07/02/23 08:55 Dose: 25 mg Ondansetron HCl (Ondansetron 4 Mg/2 Ml Vial) 4 mg IV-PUSH Q8H PRN PRN Reason: Nausea And Vomiting Stop: 06/28/24 21:34 Oxycodone/Acetaminophen (Oxycodone/Acetaminophen 5-325 Mg Tablet) 2 tab PO Q6H PRN PRN Reason: Pain Last Admin: 07/02/23 02:00 Dose: 2 tab Pantoprazole Sodium (Pantoprazole 40 Mg Tablet.Dr) 40 mg PO BID [facility] Stop: 06/29/24 08:59 Last Admin: 07/02/23 08:55 Dose: 40 mg Primidone (Primidone 50 Mg Tablet) 100 mg PO HS [facility] Stop: 06/29/24 21:59 Last Admin: 07/01/23 21:21 Dose: 100 mg Sevelamer Carbonate (Sevelamer Carbonate 800 Mg Tablet) 800 mg PO TID.WITH.MEALS [facility] Stop: 06/29/24 11:59 Last Admin: 07/02/23 08:55 [...] physician into a diagnostic report(s) for Mabel Haynes Shanti. I have reviewed the report(s) and am [...] signed by MD Los Grissom> 07/02/23 1042 [facility] Work Phone: 1([phone] 611-597401-06-2024 Progress note Author Jim Randhawa [facility] July 01, 2023 1:52pm Note Date/Time July 01, 2023 1: 37pm [facility] [address] [place], [place] [id number] Hospitalist Progress Note Signed Patient: Mabel Moser MR#: [id number] : 1960 Acct:[id number] Age/Sex: 63 / F Adm Date: 4 Loc: Room: [address] [place] [address] Type: ADM IN Attending Dr: Jim Randhawa [...] 09:00 07/01/23 08:20 Ferrous Sulfate 324 Mg Tablet.Dr PO 06/29/24 08:59 324 mg DAILY LOREN [...] subcu Documented By: Jim Randhawa DO 07/01/23 1336 Signed By: <Electronically signed by Jim Randhawa DO> 07/01/23 1352 [facility] Work Phone: 1(722) 332-519801-06-2024 Progress note Author Los Grissom [facility] July 01, 2023 10:16am Note Date/Time July 01, 2023 10 :16am [facility] [address] [place], [place] [id number] Nephrology Progress Note Signed Patient: Mabel Moser MR#: [id number] : 1960 Acct:[id number] Age/Sex: 63 / F Adm Date: 4 Loc: Room: [address] [place] [address] Type: ADM IN Attending Dr: Jim Randhawa [...] 50 Mg Tablet) 150 mg PO QHS [facility] Stop: 06/29/24 21:59 Last Admin: 06/30/23 21:17 Dose: 150 mg Aripiprazole (Aripiprazole 2 Mg Tablet) 2 mg PO DAILY [facility] Stop: 06/29/24 08:59 Last Admin: 07/01/23 08:21 Dose: 2 mg Bisacodyl (Bisacodyl 5 Mg Tablet.Dr) 10 mg PO DAILY PRN PRN Reason: Constipation Stop: 06/28/24 21:34 Bumetanide (Bumetanide 1 Mg/4 Ml Vial) 1 mg IV-PUSH BID@0800,1600 [facility] Stop: 06/29/24 07:59 Last Admin: 07/01/23 08:21 Dose: 1 mg Calcium Acetate (Calcium Acetate 667 Mg Capsule) 667 mg PO BID.WITH.MEALS [facility] Stop: 06/29/24 07:59 Last Admin: 07/01/23 08:20 Dose: 667 mg Duloxetine HCl (Duloxetine 60 Mg Capsule.Dr) 120 mg PO DAILY [facility] Stop: 06/29/24 08:59 Last Admin: 07/01/23 08:20 Dose: 120 mg Fentanyl (Fentanyl Patch 100 Mcg/Hour Patch.Td72) 100 mcg TRANSDERML Q72H [facility]; Protocol Last Admin: 06/30/23 09:31 Dose: 100 mcg Ferrous Sulfate (Ferrous Sulfate 324 Mg Tablet.) 324 mg PO DAILY [facility] Stop: 06/29/24 08:59 Last Admin: 07/01/23 08:20 Dose: 324 mg Gabapentin (Gabapentin 100 Mg Capsule) 100 mg PO TID [facility] Stop: 06/29/24 08:59 Last Admin: 07/01/23 08:20 Dose: 100 mg Guaifenesin/Dextromethorphan (Guaif/Dextromethorphan Syrup 10 Ml Udc) 10 ml PO Q8H PRN PRN Reason: Cough Stop: 06/28/24 21:34 Heparin Sodium (Porcine) (Heparin 5,000 Unit/Ml Vial) 5,000 unit SUBCUT Q12HR [facility] Stop: 06/29/24 08:59 Last Admin: 07/01/23 08:21 Dose: 5,000 unit Levothyroxine Sodium (Levothyroxine 100 Mcg Tablet) 100 mcg PO DAILY@0630 [facility] Stop: 06/29/24 06:29 Last Admin: 07/01/23 05:46 Dose: 100 mcg Linaclotide (Linaclotide 290 Mcg Capsule) 290 mcg PO Q48HR [facility] Stop: 06/29/24 08:59 Last Admin: 06/30/23 09:33 Dose: 290 mcg Liothyronine Sodium (Liothyronine 25 Mcg Tablet) 25 mcg PO DAILY@0630 [facility] Stop: 06/29/24 10:59 Last Admin: 07/01/23 05:46 Dose: 25 mcg Loratadine (Loratadine 10 Mg Tablet) 10 mg PO DAILY PRN PRN Reason: Allergy Symptoms Stop: 06/29/24 06:54 Melatonin (Melatonin 5 Mg Tablet) 5 mg PO QHS PRN PRN Reason: Insomnia Stop: 06/28/24 21:34 Metoprolol Tartrate (Metoprolol Tartrate 25 Mg Tablet) 25 mg PO BID [facility] Stop: 06/29/24 20:59 Last Admin: [...] BID LOREN Stop: 06/29/24 08:59 Last Admin: 07/01/23 08:21 Dose: 40 mg Primidone (Primidone 50 Mg Tablet) 100 mg PO HS [facility] Stop: 06/29/24 21:59 Last Admin: 06/30/23 21:17 Dose: 100 mg Sevelamer Carbonate (Sevelamer Carbonate 800 Mg Tablet) 800 mg PO TID.WITH.MEALS [facility] Stop: 06/29/24 11:59 Last Admin: 07/01/23 08:20 [...] signed by MD Los Grissom> 07/01/23 1016 [facility] Work Phone: [phone] 251-671501-05-2024 Progress note Author Jim Randhawa [facility] June 30, 2023 1:13pm Note Date/Time June 30, 2023 1: 13pm [facility] [address] [place] [address] Hospitalist Progress Note Signed Patient: Mabel Moser MR#: [id number] : 1960 Acct:[id number] Age/Sex: 63 / F Adm Date: 4 Loc: Room: [address] [place] [address] Type: ADM IN Attending Dr: Jim Randhawa [...] 06/30/23 09:00 06/30/23 09:30 Duloxetine 60 Mg Capsule. PO 06/29/24 08:59 [...] Pain Pantoprazole Sodium 40 mg 06/30/23 09:00 06/30/23 09:31 Pantoprazole 40 Mg Tablet.Dr PO 06/29/24 [...] Heparin subcu Documented By: Jim Randhawa DO 06/30/23 1309 Signed By: <Electronically signed by Jim Randhawa DO> 06/30/23 4826 [facility] Work Phone: 1(601) 198-177401-05-2024 Consult note Author Los Grissom [facility] June 30, 2023 10:45am Note Date/Time June 30, 2023 10 :26am [facility] [address] [place] [address] Nephrology Consult Note Signed Patient: Mabel Moser MR#: [id number] : 1960 Acct:[id number] Age/Sex: 63 / F Adm Date: 4 Loc: Room: [address] [place] [address] Type: ADM IN Attending Dr: Jim Randhawa DO Copies to: MD Los Mensah MD Shawn J Warner, DO~ Providers Consult Date: 06/30/23 Requesting Provider: Jim Randhawa DO Primary Care Provider: Angle Santana MD HPI Reason for Consult: LEEANN with creatinine 3.16 [...] and no additional complaints, except as documented [facility] Medical History CAD (coronary artery disease) Concepcion [...] 50 Mg Tablet) 150 mg PO QHS [facility] Stop: 06/29/24 21:59 Aripiprazole (Aripiprazole 2 Mg Tablet) 2 mg PO DAILY [facility] Stop: 06/29/24 08:59 Last Admin: 06/30/23 09:30 Dose: 2 mg Bisacodyl (Bisacodyl 5 Mg Tablet.) 10 mg PO DAILY PRN PRN Reason: Constipation Stop: 06/28/24 21:34 Bumetanide (Bumetanide 1 Mg/4 Ml Vial) 1 mg IV-PUSH BID@0800,1600 [facility] Stop: 06/29/24 07:59 Last Admin: 06/30/23 09:31 Dose: 1 mg Calcium Acetate (Calcium Acetate 667 Mg Capsule) 667 mg PO BID.WITH.MEALS [facility] Stop: 06/29/24 07:59 Last Admin: 06/30/23 09:30 Dose: 667 mg Duloxetine HCl (Duloxetine 60 Mg Capsule.) 120 mg PO DAILY [facility] Stop: 06/29/24 08:59 Last Admin: 06/30/23 09:30 Dose: 120 mg Escitalopram Oxalate (Escitalopram 20 Mg Tablet) 20 mg PO DAILY [facility] Stop: 06/29/24 08:59 Last Admin: 06/30/23 09:31 Dose: 20 mg Fentanyl (Fentanyl Patch 100 Mcg/Hour Patch.Td72) 100 mcg TRANSDERML Q72H [facility]; Protocol Last Admin: 06/30/23 09:31 Dose: 100 mcg Ferrous Sulfate (Ferrous Sulfate 324 Mg Tablet.) 324 mg PO DAILY [facility] Stop: 06/29/24 08:59 Last Admin: 06/30/23 09:31 Dose: 324 mg Gabapentin (Gabapentin 100 Mg Capsule) 100 mg PO TID [facility] Stop: 06/29/24 08:59 Last Admin: 06/30/23 09:31 Dose: 100 mg Guaifenesin/Dextromethorphan (Guaif/Dextromethorphan Syrup 10 Ml Udc) 10 ml PO Q8H PRN PRN Reason: Cough Stop: 06/28/24 21:34 Heparin Sodium (Porcine) (Heparin 5,000 Unit/Ml Vial) 5,000 unit SUBCUT Q12HR [facility] Stop: 06/29/24 08:59 Last Admin: 06/30/23 09:32 Dose: 5,000 unit Levothyroxine Sodium (Levothyroxine 100 Mcg Tablet) 100 mcg PO DAILY@0630 [facility] Stop: 06/29/24 06:29 Last Admin: 06/30/23 05:55 Dose: 100 mcg Linaclotide (Linaclotide 290 Mcg Capsule) 290 mcg PO Q48HR [facility] Stop: 06/29/24 08:59 Last Admin: 06/30/23 09:33 Dose: 290 mcg Liothyronine Sodium (Liothyronine 25 Mcg Tablet) 25 mcg PO DAILY [facility] Stop: 06/29/24 08:59 Loratadine (Loratadine [...] 40 Mg Tablet.Dr) 40 mg PO BID [facility] Stop: 06/29/24 08:59 Last Admin: 06/30/23 09:31 Dose: 40 mg Primidone (Primidone 50 Mg Tablet) 100 mg PO HS [facility] Stop: 06/29/24 21:59 Sevelamer Carbonate (Sevelamer Carbonate 800 Mg Tablet) 800 mg PO TID [facility] Stop: 06/29/24 08:59 Tizanidine HCl (Tizanidine 4 [...] <Electronically signed by MD Los Grissom> 06/30/23 1045 [facility] Work Phone: 1(603) 805-150401-04-2024 History and physical note Author Beatriz Oh [facility] June 29, 2023 9:51pm Note Date/Time June 29, 2023 9: 47pm [facility] [address] [place] [address] Hospitalist H&P Signed Patient: Mabel Moser MR#: [id number] : 1960 Acct:[id number] Age/Sex: 63 / F Adm Date: 4 Loc: Room: [address] [place] [address] Type: ADM IN Attending Dr: Papito Garces [...] She denies having dysuria, hematuria, or frequency. [facility] Medical History CAD (coronary artery disease) [place] filter in place Hypertension Surgical History History [...] mg PO BID 08/31/18 [History Confirmed 10/28/22] jhknzvrc-wczcaef-vuha-iron fum 18 mg-folic 600 mcg-vit K 80 [...] TID PRN Edema 10/28/22 [History Confirmed 10/28/22] qxjvclsyjx-rkloxpsrngpqf-xfwrgcpn 50 mg-325 mg-40 mg capsule 1 cap [...] days): 3 Documented By: Beatriz Oh MD 06/29/232143 Signed By: <Electronically signed by Beatriz Oh MD> 06/29/23 215 [facility] Work Phone: 1(543) 983-454110-10-2023 Evaluation note* Encounter Date Diagnosis Assessment Notes [...] G43.519) Advised the patient to follow with [facility] neurology clinic Mar, Chronic kidney disea [...] Hyperphosphatemia (ICD-10 - E83.39) Continue PhosLo with [employer] Other [id number] NoteRemains stable without worsening symptomsUnHolzer [facility] [place]08-30-2023 NoteCoronary artery disease is stable Continue GDMT continue risk factor modifications- heart healthy diet, regular exercise as tolerated and continue all medications.[facility] 02-22-2023 NoteNYHC II Continue GDMT- entresto- metoprolol and aldactone have been dc's r/t hypotension. Diuretic therapy- bumex 2 mg bid- Monitor daily weights, I&O, fluid restriction 1.5-2L/day, renal function and electrolytes- please maintain K+>4 and Mg > 2UnHolzer [facility] [place] 02-22-2023 NoteRCRI- 0???points Class I Risk 3.9???% 30-day risk of , [place], or cardiac arrest From a cardiology perspective pt may proceed with Total knee arthroplasty with Dr Dennis, she is a low to moderate risk for a low to mod risk orthopedic surgery. She does not take any Aspirin, or anticoagulation. Please monitor hemodynamics carefully and prevent any major fluid shifts.[facility]08-30-2023 NoteUTP CARDIOLOGY PROGRESS NOTE HPI: Mabel Moser is a 62 y.o. female here for pre surgery risk stratification Patient here for 2 mo follow up pulmonary hypertension and hypertension. She was admitted to [facility] twice this past month. She needs [...] is alert and or (more content not included)...[facility]08-30-2023 NotePatient here for 2 mo follow up pulmonary hypertension and hypertension. She was admitted to [facility] twice this past month. She needs cleared for knee replacement surgery with Dr. Dennis. Denies chest pain, lightheadedness, and palpitations. Says SOB is improving. Review of Systems Constitutional: Positive for malaise/fatigue. Cardiovascular: Positive for dyspnea on exertion (improving). Musculoskeletal: Positive for arthritis, back pain and joint pain. All other systems reviewed and are negative.[facility] 02-16-2023 NoteSubjective: Patient ID: Mabel Moser is a [...] History: Diagnosis Date CHF (congestive heart failure) ([facility]) Coronary artery disease Heart valve disease There [...] requested to proceed with surgery. Oneal Downey, M3 [facility] 02/16/23 As the teaching physician, I have personally performed or re-performed the history of present illness, physical exam and medical decision-making activities of the encounter and verified the medical student's documentation. I made pertinent changes as necessary to ensure accurate documentation. Additional Comments: [facility]07-21-2023 NoteData Mabel Moser 1960 Chief Complaint Patient [...] physical therapy specifically wasdoing aquatic therapy, at [facility] with mild improvement. patient has had injections in the past, and did have some improvement however feels that getting significant improvement with these. She is interested in considering surgical intervention. Of Note, she did have a R. Total knee arthroplasty about 8 years at [facility]. Patient is also complaining of Left hip pain that worsened about a year ago after she had a fall. She did have x-rays completed after this, and was told that she had a chip off of her bone. . She saw Dr. Barajas at [facility] who recommended continiues conservative management. Hip pain rated as a 4-5/10. Most of her pain on the outer aspect of the hip. No prior injections or focused PT for the hip. Past Medical History: Diagnosis Date CHF (congestive heart failure) ([facility]) Coronary artery disease Heart valve disease History [...] in detail including differentia (more content not included)...[facility]06-22-2023 Note [facility] - [facility] Subjective Mabel Moser is a [...] In the past she was admitted to [facility] in 2019 with fluid overload and [...] not ill-appearing. HENT: H (more content not included)...[facility]06-07-2023 NotePt insists right subclavian chest port is accessed for procedure. 4CD RN at bedside to access. RN is not able to access. Li RN CVL spoke with Dr Hidalgo and pt can go to bottle labeler without IV access for RHC.[facility]06-07-2023 NotePatient: Mabel Moser Procedure Information Date/Time: 11/30/22 1300 Procedure: Right heart cath Location: [facility]JUST[facility] CLERK 3 / [facility] (Cath) Providers: Benjie Hidalgo MD [...] products. Plan discussed with fellow. Additional Equipment RequestsUnHolzer [facility] [place]05-15-2023 Note [place] [facility] - [facility] Subjective Mabel Moser is a 62 y.o. year old female patient being seen for 2 week follow up per Sofie Bernard CNP. She says since she was last seen on 10/28, Dr. Santana increased her Entresto to 97-103mg bid, metoprolol to 50mg TID, and hydralazine to 100mg TID. Says she was in [facility] ED again last Monday with a [...] In the past she was admitted to [facility] in 2019 with fluid overload and [...] is no distension. Pal (more content not included)...[facility]05-05-2023 NoteHeadaches today and to be evaluated in ED- worst H/A I have ever had. [facility]05-05-2023 NoteCoronary artery disease is stable Continue [facility] [place]-05-2023 NoteHypertension is uncontrolled with c/o worst headache ever- recommended [facility]Univers[facility]-2023 NoteContinue to monitor with echoUnHolzer [facility] [place]05-05-2023 NoteNYHC- IV- SOB with rest and + Orthopnea, volume overloaded on exam despite Bumex 1 mg po tid and increased renal function. Noted elevated rt sided pressures with RVSP 59 and dilated RV on Echo 09/21/22- She has h/o PE in the past and currently on ASA. CR was increasing on labs noted 10/26/22- CR 1.68/BUN 45 at admit was 1.23/ 38 [facility]05-05-2023 NoteUTP CARDIOLOGY PROGRESS NOTE HPI: Mabel Moser is a 62 y.o. female here for hospital f/u Patient here for follow up [facility] ED on 10/24/2022 for fluid overload. [...] in the morning, afternoon, and at bedtime. vpqmgqbxbs-wzyjkfjberjcx-dpyk (Esgic) 50-325-40 mg capsule yrndwmbaoh-jhfwgosuicfqy-qykmbpja 50 mg-325 mg-40 mg capsule butorphanol (Stadol) [...] hypertension Hypertension is uncontrolle (more content not included)...[facility]05-05-2023 NotePatient here for follow up [facility] ED on 10/24/2022 for fluid overload. [...] light-headedness. All other systems reviewed and are negative.[facility] 10-10-2022 NoteCardiovascular Medicine [facility] SUBJECTIVE Chief Complaint Patient presents with Congestive Heart Failure Re-establish care HPI Mabel Moser is a 62 y.o. female here to re-establish care. She was recently discharged from [facility] for fluid overload. Her weight went [...] She follows with a kidney specialist at [facility]. Her leg swelling has improved but she still has some. She continues to have some orthopnea and a dry cough. Denies CP, syncope. Diet: low Na+, less than 2L fluid/day Exercise: none currently Tobacco: denies ETOH: denies Recreational drug use: denies Last HPI per Dr. Hiadlgo (12/2018): Visit of 08/27/2018: She was previously investigated for pulmonary hypertension, dyspnea and edema. She has mild pulmonary hypertension by cath in 02/2016. She has history of obesity s/p bariatric surgery in 1999. She has been admitted in 07/2018 to [facility] with dyspnea, fluid overload and was [...] vitamin B12 deficiency Pulmona (more content not included)...[facility] 10-10-2022 NoteNew patient here to re-establish care. She was last seen in [address] Hidalgo. She was discharged 10/07/2022 from [facility] for fluid overload. Had echo 09/21/2022. Says PCP put her on Entresto a few months ago, and recently decreased her dose due to hyperkalemia per patient. Review of Systems Constitutional: Positive for malaise/fatigue. Cardiovascular: Positive for dyspnea on exertion, leg swelling and palpitations. Musculoskeletal: Positive for arthritis, back pain and joint pain. Neurological: Positive for light-headedness. All other systems reviewed and are negative.[facility] 09-27-2022 Evaluation note* Encounter Date Diagnosis Assessment [...] G43.519) Advised the patient to follow with [facility] neurology clinic [facility] [employer] Other 03-28-2023 NoteThe [facility] [id number] Evaluation note* Encounter Date Diagnosis Assessment Notes Treatment Notes Treatment Clinical Notes Jul, Contusion of right wrist, initial encounter (ICD-10 - S60.211A) Patient placed in cock up wrist splint. Activities 2-5 lbs ADLs [employer] Other 12-13-2022 NoteThe [facility] [id number] NoteThe [facility] [id number] NoteThe [facility] [id number] Evaluation note * Encounter Date Diagnosis Assessment [...] pressure. Advised the patient to follow-up with [facility] neurology clinic I will try to reach to Dr. Santana's office about fludrocortisone I would continue same blood pressure medications. Advised the patient to follow a low-salt diet and to monitor her blood pressure at home Mar, Migraine aura, persistent, intractable (ICD-10 - G43.519) Advised the patient to follow with [facility] neurology clinic [employer] Other 08-04-2022 NoteThe [facility] [id number] NoteThe [facility] HospitalHzmbrhlv98-19-2622 Evaluation note* Encounter Date Diagnosis Assessment Notes [...] off all diuretics metolazone, spironolactone and bumetanide. [employer] Other Discharge summary Author Jim Randhawa [facility] July 03, 2023 3:03pm Note Date/Time July 03, 2023 2: 55pm [facility] [address] [place] [address] Discharge Summary Signed Patient: Mabel Moser MR#: [id number] : 1960 Acct:[id number] Age/Sex: 63 / F Adm Date: 4 Loc: Room: [address] [place] [address]: Jim Randhawa DO Copies to: [...] needed.) Documented By: Jim Randhawa DO 07/03/23 1453 Signed By: <Electronically signed by Jim Randhawa, > 07/03/23 1503 [facility] Work Phone: Evaluation noteNo assessment information available [facility] Work Phone: Evaluation noteNo InformationNort [email or web address] Other Evaluation note* Diagnosis Onset Date Resolution Status Acute heart failure acute LEEANN (acute kidney injury) ac lower brule Anemia chronic CKD (chronic kidney disease) stage 3, GFR 30-59 ml/min chronic Hypertension chronic [facility] Work Phone: His[facility] general Narrative - Reported* Type Description Date [...] History COVID 05/2020 Hospitalization History COVID 04/2021 [employer] Other [facility] general Narrative - Reported* Type Description Date [...] History COVID 05/2020 Hospitalization History COVID 04/2021 [employer] Other history general Narrative - Reported* Type [...] 04/2021 Hospitalization History ELEVATED POTASSIUM LEVEL 09/19/2022 [employer] Other Hospital Discharge instructions Additional Instructions Home health to manage: - PT/OT to eval and treat - Monitor VS routine - Dx. HTN - CHF assessments/education - Urinary assessments - Dx. CKD on LEEANN - Fall precautions - high fall riskThe [facility] Work Phone: Summary Purpose Family History [...] content) DATE CREATED AUTHOR 01/14/2019 Ailyn Zepeda [facility] DATE CREATED AUTHOR AUTHOR'S ORGANIZ ATION 07/24/2021 [facility] DATE CREATED AUTHOR AUTHOR'S ORGANIZ ATION 01/17/2022 [facility] DATE CREATED AUTHOR AUTHOR'S ORGANIZ ATION 12/05/2022 [facility] DATE CREATED AUTHOR AUTHOR'S ORGANIZ ATION 02/10/2023 [facility] DATE CREATED AUTHOR AUTHOR'S ORGANIZ ATION 07/16/2023 [facility] DATE CREATED AUTHOR AUTHOR'S ORGANIZ ATION 07/19/2023 [facility] REASON FOR VISIT (unrecogniz ed section and content) RENAL 6 month f/u for CKD st age [age] with recurrent LEEANN on diureticsRENAL 4 month Follow up, NO LABSRight Wrist InjuryRENAL 6 month Follow upClinicalClinicalTELEVISIT VS OVRENAL F/USWELLING Care Teams (unrecognized sec tion and content) [...] BE BASED ON THE PRIMARY CLINICAL RECORDS. [facility] [employer] [facility]. provides no warranty or guarantee of the accuracy or completeness of information in this document.
--- NOTE | 2023-07-20 15:43 | US_ITS ---
The [address] [address] Patient Name: JOSE CLEMENTS MRN: [id number] date: 1960 Sex: F Assigned Patient Location: [place] Current Patient Location: [place] Accession/Order Number: [id number] Exam Date: 07/20/2023 17:40 Report Date: 07/20/2023 20:37 At the request of: ANGLE SANTANA Procedure: US venous doppler LE BI EXAM: DVT Ultrasound TECHNIQUE: Color doppler and childers-scale imaging of the bilateral lower extremities was performed. COMPARISON: None. FINDINGS: There is normal flow, compressibility, respiratory variation, and augmentation of the bilateral common femoral vein, superficial femoral vein, and popliteal vein. No evidence of intraluminal thrombus. Normal flow and compressibility of the peroneal and posterior tibial veins. Within the right popliteal fossa is a anechoic fluid collection measuring up to 2.0 x 2.9 x 1.7 cm favored represent a small popliteal cyst. There is subcutaneous edema of the bilateral lower extremities. US/US venous doppler LE BI IMPRESSION: No DVT in the bilateral lower extremities above the knee. Diffuse subcutaneous edema of the lower extremities. Small popliteal cyst of the right knee. Electronically authenticated by: SARITHA KENYON Date: 07/20/2023 20:37
[2023-07-20 16:31] LABS: Basophils Percent Auto 0.3 % (0.2-2.0); Eosinophils Percent Auto 0.4 % (0.9-7.0); Hematocrit 30.5 % (36.0-48.0); Hemoglobin 9.2 g/dL (12.0-16.0); Immature Granulocytes Abs Auto 0.03 10^3/uL (0.00-0.03); Immature Granulocytes Pct Auto 0.3 % (0.0-0.5); Lymphocytes Absolute Auto 0.6 10^3/uL (1.2-3.8); Lymphocytes Percent Auto 6.7 % (20.5-60.0); Mean Corpuscular HGB Conc 30.2 g/dL (29.9-35.2); Mean Corpuscular Hemoglobin 31.6 pg (26.7-34.0); Mean Corpuscular Volume 104.8 fL (81.0-99.0); Mean Platelet Volume 9.1 fL (9.5-13.5); Monocytes Absolute Auto 0.5 10^3/uL (0.3-0.8); Monocytes Percent Auto 4.9 % (1.7-12.0); Neutrophils Absolute Auto 8.2 10^3/uL (1.4-6.5); Neutrophils Percent Auto 87.4 % (43.0-75.0); Platelet Count 231 10^3/uL (150-450); Red Blood Count 2.91 10^6/uL (4.20-5.40); Red Cell Distribution Width 13.9 % (11.0-15.0); White Blood Count 9.4 10^3/uL (4.0-11.0)
[2023-07-20 16:45] LABS: Lactate/Lactic Acid 0.7 mmol/L (0.4-2.0)
[2023-07-20 16:50] VITALS: BP 96/61; PULSE 64; RESP 16; TEMP 36.3; O2SAT 97; BMI 38.5
[2023-07-20 16:53] LABS: Alanine Aminotransferase 23 U/L (14-59); Albumin Globulin Ratio 0.9; Albumin Level 3.2 g/dL (3.4-5.0); Alkaline Phosphatase 237 U/L (46-116); Anion Gap 15.8; Aspartate Amino Transferase 18 U/L (15-37); BUN Creatinine Ratio 24.9; Bilirubin Total 0.3 mg/dL (0.2-1.0); Calcium 8.2 mg/dL (8.5-10.1); Carbon Dioxide 23.3 mmol/L (21.0-32.0); Chloride 102 mmol/L (98-107); Estimated GFR (African America 18 (>=60); Estimated GFR (Non-African Ame 15 (>=60); Free T3 1.01 pg/mL (2.18-3.98); Globulin 3.5 g/dL; Glucose 96 mg/dL (74-106); Potassium 5.1 mmol/L (3.5-5.1); Sodium 136 mmol/L (136-145); Total Protein 6.7 g/dL (6.4-8.2)
[2023-07-20 19:51] VITALS: BP 117/73; PULSE 91; RESP 18; TEMP 36.5; O2SAT 97
[2023-07-20 20:18] VITALS: O2SAT 93
[2023-07-20] MEDS: PRAMIPEXOLE 1 MG TABLET PO (20:19)
[2023-07-20] MEDS: HYDROMORPHONE HCL 0.5 MG/0.5 ML SYRINGE IV (20:19)
[2023-07-20 20:26] VITALS: BP 117/67
[2023-07-20] MEDS: BUMETANIDE 10 MG in 0.9 % SODIUM CHLORIDE 160 ML 20 MG IV (20:26)
[2023-07-20] MEDS: PRIMIDONE 50 MG TABLET 150 MG PO (21:18)
[2023-07-21] VITALS (8 sets, daily range): BP systolic 93–131; BP diastolic 57–90; PULSE 67–87; RESP 16–18; TEMP 36.3–36.6; O2SAT 90–100
[2023-07-21] MEDS: LEVOTHYROXINE SODIUM 100 MCG TABLET PO (05:33)
[2023-07-21] MEDS: LIOTHYRONINE SODIUM 25 MCG TABLET PO (05:33)
[2023-07-21 05:41] LABS: Basophils Percent Auto 0.5 % (0.2-2.0); Eosinophils Absolute Auto 0.1 10^3/uL (0.0-0.7); Eosinophils Percent Auto 2.3 % (0.9-7.0); Hematocrit 27.6 % (36.0-48.0); Hemoglobin 8.3 g/dL (12.0-16.0); Immature Granulocytes Abs Auto 0.02 10^3/uL (0.00-0.03); Immature Granulocytes Pct Auto 0.3 % (0.0-0.5); Lymphocytes Percent Auto 15.8 % (20.5-60.0); Mean Corpuscular HGB Conc 30.1 g/dL (29.9-35.2); Mean Corpuscular Hemoglobin 31.4 pg (26.7-34.0); Mean Corpuscular Volume 104.5 fL (81.0-99.0); Mean Platelet Volume 8.9 fL (9.5-13.5); Monocytes Absolute Auto 0.4 10^3/uL (0.3-0.8); Monocytes Percent Auto 7.2 % (1.7-12.0); Neutrophils Absolute Auto 4.6 10^3/uL (1.4-6.5); Neutrophils Percent Auto 73.9 % (43.0-75.0); Platelet Count 206 10^3/uL (150-450); Red Blood Count 2.64 10^6/uL (4.20-5.40); Red Cell Distribution Width 13.8 % (11.0-15.0); White Blood Count 6.2 10^3/uL (4.0-11.0)
[2023-07-21 06:14] LABS: Alanine Aminotransferase 20 U/L (14-59); Albumin Globulin Ratio 0.8; Albumin Level 2.6 g/dL (3.4-5.0); Alkaline Phosphatase 211 U/L (46-116); Anion Gap 11.8; Aspartate Amino Transferase 15 U/L (15-37); BUN Creatinine Ratio 27.7; Bilirubin Total 0.2 mg/dL (0.2-1.0); Calcium 7.9 mg/dL (8.5-10.1); Carbon Dioxide 22.8 mmol/L (21.0-32.0); Chloride 103 mmol/L (98-107); Estimated GFR (African America 20 (>=60); Estimated GFR (Non-African Ame 16 (>=60); Globulin 3.1 g/dL; Glucose 90 mg/dL (74-106); Magnesium 1.8 mg/dL (1.8-2.4); Potassium 4.6 mmol/L (3.5-5.1); Sodium 133 mmol/L (136-145); Total Protein 5.7 g/dL (6.4-8.2)
--- NOTE | 2023-07-21 08:13 | P.PN_ITS ---
Progress Note: Subjective Subjective Interval history: Patient was seen and evaluated in the office yesterday due to significant weight gain. She is up about 30 pounds. Significant peripheral edema. Patient was admitted for fluid overload. No shortness of breath no chest pain. Just peripheral edema. She does feel somewhat better today with her legs not being as tight. As an outpatient we increased her Bumex up to 3 mg twice a day and the Aldactone to 100 mg twice a day and that was ineffective in resulting in significant diuresis Exam Constitutional Vital Signs, click to edit/add: Last Vital Signs Temp 97.6 F 07/21/23 05:40 Pulse 67 07/21/23 05:40 Resp 16 07/21/23 05:40 BP 93/57 07/21/23 05:40 Pulse Ox 93 L 07/21/23 05:40 O2 Del Method Room Air 07/21/23 05:40 Documenting provider has reviewed patient's vital signs: yes Common normals: no apparent distress, average body habitus, oriented x3, healthy appearing, alert and well nourished General appearance: cooperative, comfortable and well developed Orientation/consciousness: Yes awake, Yes oriented to person and Yes oriented to place HENNH Common normals: normocephalic, nasal mucous membranes and turbinates normal and moist oral mucous membranes Chest Common normals: inspection of chest normal Respiratory Common normals: normal respiratory effort, no retractions and no use of accessory muscles Effort & inspection: able to speak in complete sentences and symmetric chest movement Cardio Common normals: regular rate, regular rhythm and no murmurs Back & Pelvis Lumbar spine/lower back: normal to inspection, ROM limited, pain with ROM, paraspinal muscle tenderness and paraspinal muscle spasm Other: positive facet loading bilat muscle strength 4/5 bilat LE with intact sensation Extremity Common normals: full ROM and normal capillary refill; abnormal to inspection (3+ edema slightly better than yesterday) Progress Note: Objective Labs Labs: Short CBC 07/20/23 07/21/23 Range/Units 16:18 05:26 WBC 9.4 6.2 (4.0-11.0) 10^3/uL Hgb 9.2 L 8.3 L (12.0-16.0) g/dL Hct 30.5 L 27.6 L (36.0-48.0) % Plt Count 231 206 (150-450) 10^3/uL BMP 07/20/23 07/21/23 16:18 05:26 Sodium 136 133 L Potassium 5.1 4.6 Chloride 102 103 Carbon Dioxide 23.3 22.8 BUN 80.0 H* 82.0 H* Creatinine 3.21 H 2.96 H Glucose 96 90 Calcium 8.2 L 7.9 L Liver Function 07/20/23 07/21/23 Range/Units 16:18 05:26 Total Bilirubin 0.3 0.2 (0.2-1.0) mg/dL AST 18 15 (15-37) U/L ALT 23 20 (14-59) U/L Alkaline Phosphatase 237 H 211 H (46-116) U/L Albumin 3.2 L 2.6 L (3.4-5.0) g/dL Progress Note: A&P Assessment and Plan (1) Acute kidney injury: (2) Edema of lower leg due to peripheral venous insufficiency: Plan Elevated liver test, low thyroid secondary to fluid overload-did well with the Bumex drip from a blood pressure standpoint. As an outpatient we increased her Bumex up to 3 mg twice a day and the Aldactone to 100 mg twice a day and that was ineffective in resulting in significant diuresis . will repeat Bumex drip again today. Unable to assess I's and O's as they are not recorded. Patient states she has significant urine output. Legs still feel tight. Usually takes 2 or 3 doses of the Bumex drip to improve her peripheral edema. Will maintain that again today. Just finished last drip at 6 will restart at 2 PM today. Lungs are clear. Iron deficiency anemia as well as possible acute blood loss anemia-will check occult blood. Hemoglobin is down despite diuresis. Significant hypothyroidism-increased doses. The hypothyroidism likely contrib uting to her peripheral edema Chronic kidney disease stage III-deteriorated on admission, somewhat better today. Morbid obesity status post gastric bypass surgery-diet management Elevated liver function test likely secondary to passive congestion-will continue to monitor and are improved today Anxiety and depression-continue with home medications Chronic low back pain-continue with home medications Patient overall is stable, just needs to continue with diuresis.
--- NOTE | 2023-07-21 08:32 | SWNOTE1 ---
SW notified patient has [facility].
[2023-07-21 09:09] LABS: Bilirubin Urine NEGATIVE (NEGATIVE); Blood Urine NEGATIVE (NEGATIVE); Clarity Urine CLEAR (CLEAR); Color Urine LT. YELLOW (YELLOW); Glucose Urine UA NEGATIVE (NEGATIVE); Ketones Urine NEGATIVE (NEGATIVE); Leukocyte Esterase Urine NEGATIVE (NEGATIVE); Nitrite Urine NEGATIVE (NEGATIVE); Protein Urine NEGATIVE (NEG/TRACE); Specific Gravity Urine <=1.005 (1.005-1.025); Urobilinogen Urine 0.2 EU/dL (0.2-1.0); pH Urine 5.5 (5.0-9.0)
[2023-07-21 09:12] LABS: Sodium Urine Random 87 mmol/L (30-90)
[2023-07-21 09:13] LABS: Urine Microscopic Indicated NO
[2023-07-21] MEDS: DULOXETINE HCL 60 MG CAPSULE.DR 120 MG PO (09:46)
[2023-07-21] MEDS: CALCIUM ACETATE 667 MG CAPSULE PO ×2 (09:46→21:50)
[2023-07-21] MEDS: ARIPIPRAZOLE 2 MG TABLET PO (09:46)
[2023-07-21] MEDS: HYDROMORPHONE HCL 0.5 MG/0.5 ML SYRINGE IV ×2 (09:46→16:25)
[2023-07-21] MEDS: Sacubitril-Valsartan [Entresto] 97-103 mg tablet 1 EACH PO ×2 (09:50→21:46)
[2023-07-21] MEDS: FENTANYL 50 MCG/HR PATCH.TD72 100 MCG TD (11:02)
--- NOTE | 2023-07-21 13:31 | CM.NOTE ---
Important Message From Medicare discussed with pt, pt verbalizes understanding and signs paper. Original given to pt and copy placed on pt's chart.
[2023-07-21] MEDS: BUMETANIDE 10 MG in 0.9 % SODIUM CHLORIDE 160 ML 20 MG IV (13:51)
[2023-07-21] MEDS: 0.9 % SODIUM CHLORIDE 250 ML 10.417 ML IV (13:51)
[2023-07-21] MEDS: SEVELAMER CARBONATE 800 MG TABLET PO ×2 (13:56→21:49)
[2023-07-21] MEDS: PRAMIPEXOLE 1 MG TABLET PO (21:43)
[2023-07-21] MEDS: PRIMIDONE 50 MG TABLET 150 MG PO (21:46)
[2023-07-21] MEDS: OXYCODONE HCL/ACETAMINOPHEN 5MG/325MG 2 TAB PO (21:50)
[2023-07-22 03:50] VITALS: BP 150/80; PULSE 66; RESP 18; TEMP 36.8; O2SAT 98
[2023-07-22 04:51] LABS: Basophils Percent Auto 0.7 % (0.2-2.0); Eosinophils Absolute Auto 0.1 10^3/uL (0.0-0.7); Hematocrit 31.3 % (36.0-48.0); Hemoglobin 9.5 g/dL (12.0-16.0); Immature Granulocytes Abs Auto 0.04 10^3/uL (0.00-0.03); Immature Granulocytes Pct Auto 0.7 % (0.0-0.5); Lymphocytes Absolute Auto 1.3 10^3/uL (1.2-3.8); Lymphocytes Percent Auto 22.9 % (20.5-60.0); Mean Corpuscular HGB Conc 30.4 g/dL (29.9-35.2); Mean Corpuscular Hemoglobin 31.1 pg (26.7-34.0); Mean Corpuscular Volume 102.6 fL (81.0-99.0); Mean Platelet Volume 9.4 fL (9.5-13.5); Monocytes Absolute Auto 0.5 10^3/uL (0.3-0.8); Monocytes Percent Auto 8.8 % (1.7-12.0); Neutrophils Absolute Auto 3.6 10^3/uL (1.4-6.5); Neutrophils Percent Auto 64.9 % (43.0-75.0); Platelet Count 247 10^3/uL (150-450); Red Blood Count 3.05 10^6/uL (4.20-5.40); Red Cell Distribution Width 13.7 % (11.0-15.0); White Blood Count 5.5 10^3/uL (4.0-11.0)
[2023-07-22 05:20] LABS: Alanine Aminotransferase 19 U/L (14-59); Albumin Globulin Ratio 0.9; Alkaline Phosphatase 232 U/L (46-116); Aspartate Amino Transferase 18 U/L (15-37); BUN Creatinine Ratio 28.7; Bilirubin Total 0.2 mg/dL (0.2-1.0); Calcium 8.3 mg/dL (8.5-10.1); Carbon Dioxide 24.4 mmol/L (21.0-32.0); Chloride 103 mmol/L (98-107); Estimated GFR (African America 20 (>=60); Estimated GFR (Non-African Ame 17 (>=60); Globulin 3.4 g/dL; Glucose 79 mg/dL (74-106); Magnesium 1.7 mg/dL (1.8-2.4); Potassium 4.4 mmol/L (3.5-5.1); Sodium 137 mmol/L (136-145); Total Protein 6.4 g/dL (6.4-8.2)
[2023-07-22] MEDS: LEVOTHYROXINE SODIUM 100 MCG TABLET PO (06:02)
[2023-07-22] MEDS: LIOTHYRONINE SODIUM 25 MCG TABLET PO (06:02)
[2023-07-22] MEDS: SEVELAMER CARBONATE 800 MG TABLET PO (06:02)
--- NOTE | 2023-07-22 08:05 | P.DS_ITS ---
DS: Providers Provider Date of admission: 07/21/23 09:31 Primary care physician: Yuri Godinez MD Consults: 07/20/23 15:44 Occupational Therapy Eval and Treat Routine Reason for consultation: Only if needed for Rehab Has provider been notified: No Physical Therapy Eval and Treat Routine Reason for consultation: Eval and Treat Has provider been notified: No DS: Diagnosis Discharge Diagnosis (1) Acute kidney injury: (2) Edema of lower leg due to peripheral venous insufficiency: Plan Elevated liver test, low thyroid secondary to fluid overload- Iron deficiency anemia as well as possible acute blood loss anemia Significant hypothyroidism Chronic kidney disease stage III Morbid obesity status post gastric bypass surgery Elevated liver function test likely secondary to passive congestion Anxiety and depression Chronic low back pain DS: Summary Hospital Course Hospital Course: Patient was treated fairly aggressively as an outpatient with fluid overload. Her Bumex was normally 1 tablet a day. We bumped up to 3 a day. She was not on Aldactone we tried that and that failed as well. Was a failure to oral diuretics and fluid overload increasing patient was admitted for IV therapy. IV therapy span 2 midnights. She is improved today. We diuresed 6 L with a decrease in her creatinine since admission. Liver function test are improving as well. Liver function elevated likely secondary to passive congestion. She probably still has some significant fluid but at this point with improvement in her kidney function and 6 L diuresed we will discharge patient to home in improving condition. Medications see list. Follow-up with me in 2 days. Time Spent with Patient Time attestation: Total time spent providing and/or coordinating discharge services: Exam Constitutional Vital Signs, click to edit/add: Last Vital Signs Temp 98.2 F 07/22/23 03:50 Pulse 66 07/22/23 03:50 Resp 18 07/22/23 03:50 BP 150/80 H 07/22/23 03:50 Pulse Ox 98 07/22/23 03:50 O2 Del Method Room Air 07/22/23 03:50 Documenting provider has reviewed patient's vital signs: yes Common normals: no apparent distress, average body habitus, oriented x3, healthy appearing, alert and well nourished General appearance: cooperative, comfortable and well developed Orientation/consciousness: Yes awake, Yes oriented to person and Yes oriented to place HENMT Common normals: normocephalic, nasal mucous membranes and turbinates normal and moist oral mucous membranes Chest Common normals: inspection of chest normal Respiratory Common normals: normal respiratory effort, no retractions and no use of accessory muscles Effort & inspection: able to speak in complete sentences and symmetric chest movement Cardio Common normals: regular rate, regular rhythm and no murmurs Back & Pelvis Lumbar spine/lower back: normal to inspection, ROM limited, pain with ROM, paraspinal muscle tenderness and paraspinal muscle spasm Other: positive facet loading bilat muscle strength 4/5 bilat LE with intact sensation Extremity Common normals: full ROM and normal capillary refill; abnormal to inspection (2+ edema slightly better than yesterday) DS: Data Data Completed and Pending Labs on day of discharge: Labs from last 24 hours 07/22/23 07/21/23 03:46 07:59 WBC 5.5 RBC 3.05 L Hgb 9.5 L Hct 31.3 L MCV 102.6 H MCH 31.1 MCHC 30.4 RDW 13.7 Plt Count 247 MPV 9.4 L Neut % (Auto) 64.9 Lymph % (Auto) 22.9 Lyman % (Auto) 8.8 Eos % (Auto) 2.0 Baso % (Auto) 0.7 Neut # (Auto) 3.6 Lymph # (Auto) 1.3 Lyman # (Auto) 0.5 Eos # (Auto) 0.1 Baso # (Auto) 0.0 Abs Immat Gran (auto) 0.04 H Imm/Tot Granulo (auto) 0.7 H Sodium 137 Potassium 4.4 Chloride 103 Carbon Dioxide 24.4 Anion Gap 14.0 BUN 82.0 H* Creatinine 2.86 H Est GFR ( Amer) 20 L Est GFR (Non-Af Amer) 17 L BUN/Creatinine Ratio 28.7 Glucose 79 Calcium 8.3 L Magnesium 1.7 L Total Bilirubin 0.2 AST 18 ALT 19 Alkaline Phosphatase 232 H NT-Pro-B Natriuret Pep 584.0 Total Protein 6.4 Albumin 3.0 L Globulin 3.4 Albumin/Globulin Ratio 0.9 Urine Color Lt. yellow Urine Clarity Clear Urine pH 5.5 Ur Specific Menlo <=1.005 A Urine Protein Negative Urine Glucose (UA) Negative Urine Ketones Negative Urine Occult Blood Negative Urine Nitrite Negative Urine Bilirubin Negative Urine Urobilinogen 0.2 Ur Leukocyte Esterase Negative Ur Random Sodium 87 Discharge Plan Discharge Disposition: Home, Self-Care Discharge Medications: New pregabalin [Lyrica] 50 mg capsule 50 mg PO BID Qty: 60 2RF Continued aripiprazole [Abilify] 2 mg tablet 2 mg PO DAILY bumetanide 1 mg tablet 1 mg PO TID PRN (Reason: SWELLING) Hold Instructions: Resume on 02/16/23. until cleared by PCP Entresto 97-103 mg tablet 1 tab PO BID pramipexole [Mirapex] 1 mg tablet 1 mg PO .evening spironolactone [Aldactone] 50 mg tablet 50 mg PO DAILY PRN (Reason: swelling) butorphanol 10 mg/mL spray,non-aerosol 1 spray INTRANASAL .QD PRN (Reason: pain) fluticasone furoate-vilanterol [Breo Ellipta] 100-25 mcg/dose blister with device 1 inh INHALATION Q24H sevelamer carbonate 800 mg tablet 800 mg PO TID Rx Instructions: must administer with a meal/food desvenlafaxine succinate [Pristiq] 100 mg tablet extended release 24 hr 100 mg PO DAILY duloxetine [Cymbalta] 60 mg capsule,delayed release(DR/EC) 120 mg PO DAILY Eliquis 2.5 mg tablet 2.5 mg PO BID alprazolam 0.5 mg tablet 0.5 mg PO BID PRN (Reason: anxiety) amitriptyline 150 mg tablet 300 mg PO BEDTIME calcium acetate(phosphat bind) 667 mg capsule 667 mg PO BID levothyroxine 100 mcg tablet 100 mcg PO DAILY Linzess 290 mcg capsule 290 mcg PO DAILY Hold Instructions: Resume on 02/16/23. until diarrhea resolves primidone 50 mg tablet 150 mg PO BEDTIME tizanidine [Zanaflex] 4 mg tablet 4 mg PO Q6H PRN (Reason: muscle spasticity) fentanyl 100 mcg/hr patch 72 hour 1 patch transdermal Q72H liothyronine 25 mcg tablet 25 mcg PO DAILY oxycodone-acetaminophen 5-325 mg tablet 2 tab PO Q6H PRN (Reason: pain) [employer] Instructions: Discharge with [facility]. Phone number is [phone] Forms: Portal Instructions
[2023-07-22 08:30] VITALS: O2SAT 97
--- NOTE | 2023-07-22 09:21 | PT.DAILY ---
Physical Therapy Daily Note PT Daily Note/Assess Start: 07/22/23 09:15 Freq: Status: Active Protocol: Document 07/22/23 08:30 LANI (Rec: 07/22/23 09:21 LANI [id number]) Physical Therapy Daily Note/Assessment Time In/Time Out Time In 08:30 Time Out 08:50 Subjective Subjective Reports sharp electric pain down R LE. Using walker to take pressure off. Up to commode independently in room. Agrees to stretches. Reports going home today. Wants to come back to pool when HH is finished. Therapeutic Exercise Time Therapeutic Exercise Minutes (minutes) 20 Therapeutic Exercise Units 1 Therapeutic Exercise Treatment Therapeutic Exercise Treatment R LE distraction 3x20 seconds; Manual HS stretch, Manual Piriformis stretch, LTR, Rhythmic rocking long axis IR/ ER, Manual SKC and then finished with second round of R LE distraction 3x20 seconds Total Physical Therapy Time Total Therapy Minutes 20 Total Physical Therapy Units 1 Summary Daily Note Summary RX was focus on R hip and sciatic stretches and exercises this date with positive response and decreased in pain post RX. Patient denies any concerns or questions regarding anticipated DC back home with HH today.
[2023-07-22] MEDS: CALCIUM ACETATE 667 MG CAPSULE PO (10:09)
[2023-07-22] MEDS: ARIPIPRAZOLE 2 MG TABLET PO (10:10)
[2023-07-22] MEDS: DULOXETINE HCL 60 MG CAPSULE.DR 120 MG PO (10:10)
[2023-07-22] MEDS: Sacubitril-Valsartan [Entresto] 97-103 mg tablet 1 EACH PO (10:12)
[2023-07-22] MEDS: OXYCODONE HCL/ACETAMINOPHEN 5MG/325MG 2 TAB PO (11:55)
--- NOTE | 2023-07-24 15:40 | CM.DCFOLLOWU ---
Person spoke with: Mabel How are you feeling? Still having swelling in lower extremities How is your pain? Still having some sciatica pain Did you understand your discharge instructions? Yes Do you have any questions about your discharge instructions? No Were you given any prescriptions at discharge? Yes Were you able to get your prescriptions filled? Yes Do you understand how to take your medications as ordered? Yes Do you have any questions about your follow up appointment and do you plan to keep your follow up appointment? Called and scheduled today for Is there anything else that you would like to discuss? No Questions/Comments/Concerns/Other:
== END 2023-07-22 13:50 | disposition home or self-care (01) | DRG 641 ==
PROVIDERS: Admitting Provider Family Medicine; PCP Family Medicine; Visit Provider Family Medicine
DX: E87.70 Fluid overload, unspecified (principal); N17.9 Acute kidney failure, unspecified; D62 Acute posthemorrhagic anemia; D50.9 Iron deficiency anemia, unspecified; R60.0 Localized edema; R94.5 Abnormal results of liver function studies; I87.2 Venous insufficiency (chronic) (peripheral); E03.9 Hypothyroidism, unspecified; N18.30 Chronic kidney disease, stage 3 unspecified; E66.01 Morbid (severe) obesity due to excess calories; F41.9 Anxiety disorder, unspecified; F32.A Depression, unspecified; M54.9 Dorsalgia, unspecified; G89.29 Other chronic pain; Z68.38 Body mass index [BMI] 38.0-38.9, adult; Z79.01 Long term (current) use of anticoagulants; Z79.890 Hormone replacement therapy; Z79.891 Long term (current) use of opiate analgesic; Z79.899 Other long term (current) drug therapy; Z88.1 Allergy status to other antibiotic agents; Z88.0 Allergy status to penicillin; Z88.2 Allergy status to sulfonamides
CPT/HCPCS: 36415; 36591; 80053; 81003; 83605; 83735; 83880; 83930; 84300; 84436; 84443; 84481; 85025; 93970; 94667; 94761; 96365; 96366; 96375; 96376; 97110; 97162; 97165; G0328; G0378; J1170; J1642

== ENCOUNTER 2023-07-27 15:46 | Observation (INO) | payer MEDICARE, MEDICAID, SELFPAY ==
[2023-07-27] VITALS (10 sets, daily range): BP systolic 70–115; BP diastolic 40–68; PULSE 80–91; RESP 12–18; TEMP 36.1–36.5; O2SAT 92–96; BMI 38.2
--- OUTSIDE RECORDS SUMMARY | 2023-07-27 16:08 | XMS_ITS | CCD ---
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 Name Role Phone NIRMAL LEWIS Admitting Unavailable NIRMAL LEWIS Attending Unavailable ANGLE SANTANA Primary Care Unavailable NIRMAL LEWIS Admitting Unavailable NIRMAL LEWIS Attending Unavailable ANGLE SANTANA Primary Care Unavailable [place] Unavailable CARLOS REZA Admitting Unavailable CARLOS REZA Attending Unavailable ANGLE SANTANA Primary Care Unavailable ANGLE SANTANA Referring Unavailable Robert Johnston Admitting Unavailable Robert Johnston Attending Unavailable ANGLE SANTANA Referring Unavailable ANLGE SANTANA Primary Care Unavailable Tadjohnnie Raeann Unavailable Sue Leiva Unavailable MD Angle Santana Primary Care Provider [phone] [facility] Emergency Provider [phone] ROBERT JOHNSTON Attending Unavailable ROBERT JOHNSTON Admitting [...] ROSADO Referring Unavailable Favian Helm Admitting Unavailable Favian Helm Attending Unavailable Angle Santana Primary Care Unavailable Jim Randhawa Attending Unavailable Beatriz Oh Admitting Unavailable [place] Unavailable Angle Santana Primary Care Unavailable Allergies Allergy Classification Reported Allergen(s) Allergy Type Date of Onset Reaction(s) Facility (11 sources) Amoxicillin Drug Allergy 10-29-19 23 Unknown, [facility] (5 sources) Amoxicillin / Clavulanate Drug Allergy Unknown [employer] Other (12 sources) Povidone-Iodine; Translations: [POVIDONE-IODINE] Drug Allergy 10-11-19 23 Unknown, [facility] (9 sources) Sulfamethoxazole / Trimethoprim Drug Allergy Unknown [employer] Other (1 source) sulfaSALAzine Drug Allergy Unknown [employer] Other (7 sources) Amoxicillin / Clavulanate Drug Allergy 11-26-19 13 Unknown [facility] (1 source) Bumetanide Drug Allergy 03-22-20 16 [facility] (1 source) Cephalexin Drug Allergy 01-15-20 14 [facility] (2 sources) gabapentin; Translations: [GABAPENTIN] Drug Allergy 08-19-19 22 [facility] (3 sources) Povidone-Iodine Drug Allergy 11-26-19 13 [facility] (1 source) pregabalin; Translations: [LYRICA] Drug Allergy 08-19-19 22 [facility] (6 sources) Sulfonamides (Antibiotic); Translations: [SULFA (SULFONAMIDE ANTIBIOTICS)] Drug allergy (disorder) 11-26-19 13 Rash [facility] (1 source) Sulfonamide Drug allergy Unknown [employer] Other (7 sources) Substance with sulfonamide structure and antibacterial mechanism of action (substance) Drug allergy Unknown [employer] Other (3 sources) Clavulanate; Translations: [clavulanic acid] Drug Allergy 10-29-19 Diarrhea [facility] (1 source) Ciprofloxacin Drug Allergy 05-26-20 [facility] (1 source) Cephalexin; Translations: [CEPHALEXIN] Drug Allergy 06-13-20 14 [facility] (1 source) Ciprofloxacin; Translations: [CIPROFLOXACIN] Drug Allergy 10-11-19 23 [facility] (1 source) Iodine; Translations: [IODINE] Drug Allergy 11-28-19 [facility] (1 source) pregabalin; Translations: [PREGABALIN] Drug Allergy 10-11-19 23 [facility] (1 source) Sulfamethoxazole / Trimethoprim; Translations: [SULFAMETHOXAZOLE-T RIMETHOPRIM] Drug Allergy 11-28-19 [facility] (1 source) AMOXICILLIN-POT CLAVULANATE; Translations: [AMOXICILLIN-POT CLAVULANATE] Propensity to adverse reactions to drug (disorder) 06-13-20 [facility] (1 source) Amoxicillin Drug Allergy 10-29-19 [facility] (1 source) Povidone-Iodine Drug Allergy 10-29-19 [facility] (1 source) Sulfonamides (Antibiotic) Drug allergy (disorder) 10-29-19 [facility] Medications Current Medications Medication Drug [...] Start: 10-28-2022 take 1 capsule by mo [facility] once daily Linaclotide (Linzess) 290 mcg capsule [...] 31, 2018 12:00am [facility] Ondansetron 4 MG [...] 10:41am Start: 08-31-2018 take 1 tablet by [facility] once daily Pantoprazole (Protonix) 20 mg [...] 04, 2018 6:59am take 2 tablets by [facility] every twenty-four hours Primidone 50 MG [...] needed Orally every 4 hrs PRN Active [id number] 200 actuat albuterol 0.09 mg/actuat metered dose [...] meals Orally Four times a day Active Ue-Tenolgo-Hfw-Iron Fm-Fa-Vitk (Multi For Her) 18 mg iron-600 mcg-80 mcg Tablet (2 sources) Start: 08-31-2018 End: 06-30-2023 take 1 tablet by mouth once daily Wy-Qxspmqc-Mrp-Iron Fm-Fa-Vitk (Multi For Her) 18 mg iron-600 mcg-80 mcg Tablet Discontinued 1 TAB PO Daily August 31, 2018 12:00am June 30, 2023 12:26am Start: 08-31-2018 take 1 tablet by joseph th once daily Bv-Xrzwuda-Dhu-Iron Fm-Fa-Vitk (Multi For Her) 18 mg iron-600 [...] disease (3 sources) Atherosclerotic heart disease of [place] coronary artery without angina pectoris; Translations: [ASHD 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 PECTORIS] Onset: 3 Chronic [...] medical drugs (1 source) Adverse effect of oprhoiyxeil-qkxbckkpcb-b nzyme inhibitors, initial encounter; Translations: [ADVERSE EFFECT [...] aftercare (2 sources) Polypharmacy ; Translations: [Other [place] drug therapy] 09-04-2018 Episodic Other aftercare (1 source) Other [place] [facility] therapy; Translations: [OTH DETENTION 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 THERAPY] Onset: 3 Episodic Other [...] Range Facility Office Visiton 07-13-2023 Follow-up visit [id number] Loren Moser 1960 F Date Provider Department Center 07/13/2023 BENJIE LERMA Family History Family history unknown: Yes Level of Service:[address]907 [place] OFFICE/OUTPATIENT ESTABLISHED LOW MDM 20 MIN Normal [facility] Absolute reticulocyte countO rdered By: [place] on 07-03-2023 Reticulocytes (Bld) [#/Vol] 0.039 10*6/uL 0.024-0.08 4 [facility] Basic Metabolic Panelon Creatinine Clr Calc Pharmacy 25.88 Normal [facility] Comment on above: Performed By: #### M G, [id number], RETIC, FE and TIBC, JOSE, BMP #### [facility] [address] GFR/1.73 sq M.predicted MDRD (S/P/Bld) [Vol rate/Area] 23.348 mL/min/{1.73_m2} Normal [facility] Comment on above: Performed By: #### Nadya G, [id number], RETIC, FE and TIBC, JOSE, BMP #### [facility] [address] Calcium [Mass/volume] in Ser um or PlasmaOrdered By: Jim Randhawa on 07-03-2023 Calcium [Mass/Vol] 8.3 mg/dL Low 8.6-10.3 [facility] Comment on above: Performed By: #### Nadya G, [id number], RETIC, FE and TIBC, JOSE, BMP #### [address] Carbon dioxide, total [Moles /volume] in Serum or PlasmaOrdered By: Jim Randhawa on 07-03-2023 CO2 [Moles/Vol] 20.4 mmol/L Low 21.0-31.0 [facility] Comment on above: Performed By: #### Nadya G, [id number], RETIC, FE and TIBC, JOSE, BMP #### [address] Chloride [Moles/volume] in S andrea or PlasmaOrdered By: Jim Randhawa on 07-03-2023 Chloride [Moles/Vol] 106 mmol/L Normal 98-107 [facility] Comment on above: Performed By: #### Nadya G, [id number], RETIC, FE and TIBC, JOSE, BMP #### [facility] [address] Creatinine [Mass/volume] in Serum or PlasmaOrdered By: Jim Randhawa on 07-03-2023 Creatinine [Mass/Vol] 2.32 mg/dL High 0.60-1.20 [facility] Comment on above: Performed By: #### Nadya G, [id number], RETIC, FE and TIBC, JOSE, BMP #### [facility] [address] ECH echo transthoracicon ECH echo transthoracic [facility] [place] [address] [place] [address] Echocardiogram Signed Patient: Mabel Moser MR#: [id number] : 1960 Acct:[id number] Age/Sex: 63 / F ADM Date: 06/29/23 Loc: Room: [address] [place] [address] Type: DIS IN Attending Dr: Jim Randhawa DO Ordering Provider: Jim Randhawa DO Date of Service: 07/02/2301/16/859 [facility] echo transthoracic: swelling Copies to: MD Jim [...] FS: 40.8 % Ao root area: 7.8 [id number] ap4: 8.4 cm TAPSE: 2.6 cm EDV(Teich): [...] Signed By: Benjie Leach MD 07/03/23 1445 [facility] Ferritin [Mass/volume] in Se rum or PlasmaOrdered By: oLs Grissom on 07-03-2023 Ferritin [Mass/Vol] 71.9 ng/mL Normal 11.0-306.8 [facility] Comment on above: Performed By: #### M G, [id number], RETIC, FE and TIBC, JOSE, BMP #### [facility] [address] [place] [address] Folate [Mass/volume] in Seru m or PlasmaOrdered By: [place] on 07-03-2023 Folate [Mass/Vol] 11.1 ng/mL >5.9 [facility] Comment on above: Folate reference ran ge: >5.9 ng/mlThe WHO technical consultation on folate and vitamin [id number] has determined that folate concentrations lessthan 4 ng/ml are considered deficient. Glucose [Mass/volume] in Ser um or PlasmaOrdered By: Jim Randhawa on 07-03-2023 Glucose [Mass/Vol] 99 mg/dL Normal 70-100 [facility] Comment on above: ADA recommended refe rence rangeRandom Glucose Reference Range is dependent on time and content of last meal. Glucose of more than 200 mg/dL in a nonstressed, ambulatory subject supports the diagnosis of Diabetes Mellitus. Result Comment: [facility] Glucose Reference Range is dependent on time and content of last meal. Glucose of more than 200 mg/dL in a nonstressed, ambulatory subject supports the diagnosis of Diabetes Mellitus. ADA recommended reference range Performed By: #### M G, [id number], RETIC, FE and TIBC, JOSE, BMP #### [facility] [address] Iron [Mass/volume] in Serum or PlasmaOrdered By: [place] on 07-03-2023 Iron [Mass/Vol] 59 ug/dL Normal 50-212 [facility] Comment on above: Performed By: #### M G, [id number], RETIC, FE and TIBC, JOSE, BMP #### [facility] [address] Iron and TIBC Profileon % Iron Saturation 22.8 % Normal 20-50 [facility] Comment on above: Performed By: #### M G, [id number], RETIC, FE and TIBC, JOSE, BMP #### [facility] [address] Total Iron Binding Capacity 259 ug/dL Normal 255-450 [facility] Comment on above: Performed By: #### M G, [id number], RETIC, FE and TIBC, JOSE, BMP #### [facility] [address] Iron binding capacity [Mass/ volume] in Serum or PlasmaOrdered By: [place] on 07-03-2023 Iron binding capacity [Mass/Vol] 259 ug/dL 255-450 [facility] Iron saturation [Mass Fracti on] in Serum or PlasmaOrdered By: [place] on 07-03-2023 Iron saturation [Mass fraction] 22.8 % 20-50 [facility] Magnesium [Mass/volume] in S andrea or PlasmaOrdered By: Jim Randhawa on 07-03-2023 Magnesium [Mass/Vol] 2.0 mg/dL Normal 1.9-2.7 [facility] Comment on above: Performed By: #### M G, [id number], RETIC, FE and TIBC, JOSE, BMP #### [address] No Panel InformationOrdered By: Jim Randhawa on 07-03-2023 Estimated GFR (CKD-EPI) 23.348 mL/Min [facility] Creatinine Clearance (Chem 25.88 [facility] Potassium [Moles/volume] in Serum or PlasmaOrdered By: Jim Randhawa on 07-03-2023 Potassium [Moles/Vol] 3.9 mmol/L Normal 3.5-5.1 [facility] Comment on above: Performed By: #### M G, [id number], RETIC, FE and TIBC, JOSE, BMP #### [address] Reticulocyte Counton 024 Reticulocyte Number 0.039 10*6/uL Normal 0.024-0 .08 4 [facility] Comment on above: Result Comment: PERF ORMED BY: [place] [address] PATHOLOGIST [employer]PORATE SECURITY OFFICER TANNER GAVIN M.D. Performed By: #### M G, [id number], RETIC, FE and TIBC, JOSE, BMP #### [address] Reticulocyte Percent 1.5 % Normal 0.5-1.5 [facility] Comment on above: Performed By: #### M G, [id number], RETIC, FE and TIBC, JOSE, BMP #### [place] [address] [place] Reticulocytes/100 RBC Auto ( Bld)Ordered By: [place] on 07-03-2023 Reticulocytes/100 RBC (Bld) 1.5 % 0.5-1.5 [facility] Serum or plasma anion gap de terminationOrdered By: Jim Randhawa on 07-03-2023 Anion gap [Moles/Vol] 11.5 mmol/L Normal 6.0-15.0 [facility] Comment on above: Performed By: #### M G, [id number], RETIC, FE and TIBC, JOSE, BMP #### [address] Sodium [Moles/volume] in Ser um or PlasmaOrdered By: Jim Randhawa on 07-03-2023 Sodium [Moles/Vol] 134 mmol/L Low 136-145 [facility] Comment on above: Performed By: #### M G, [id number], RETIC, FE and TIBC, JOSE, BMP #### [address] Transferrin [Mass/volume] in Serum or PlasmaOrdered By: [place] on 07-03-2023 Transferrin [Mass/Vol] 185 mg/dL Low 203-362 [facility] Comment on above: Performed By: #### M G, [id number], RETIC, FE and TIBC, JOSE, BMP #### [address] Urea nitrogen [Mass/volume] in Serum or PlasmaOrdered By: Jim Randhawa on 07-03-2023 Urea nitrogen [Mass/Vol] 95 mg/dL High 7-25 [facility] Comment on above: Performed By: #### M G, [id number], RETIC, FE and TIBC, JOSE, BMP #### [address] Vit. B12/Folate Profileon Folate 11.1 ng/mL Normal >5.9 [facility] Comment on above: Result Comment: Sandra te reference range: >5.9 ng/ml The WHO technical consultation on folate and vitamin b12 deficiencies has determined that folate concentrations less than 4 ng/ml are considered deficient. PERFORMED BY: [place] [address] PATHOLOGIST CORPORATE SECURITY OFFICER TANNER GAVIN M.D. Performed By: #### M G, [id number], RETIC, FE and TIBC, JOSE, BMP #### [address] [address] [place] Vitamin B12 ser/plasOrdered By: [place] on 07-03-2023 Cobalamin (Vitamin B12) [Mass/Vol] 3564 pg/mL High 180-914 [facility] Comment on above: Performed By: #### M G, [id number], RETIC, FE and TIBC, JOSE, BMP #### [facility] [address] Basic Metabolic Panelon Anion gap [Moles/Vol] 11.0 mmol/L Normal 6.0-15.0 [facility] Comment on above: Performed By: #### M G, [id number], RETIC, FE and TIBC, JOSE, BMP #### [facility] [address] [place] [address] Calcium [Mass/Vol] 8.4 mg/dL Low 8.6-10.3 [facility] Comment on above: Performed By: #### M G, [id number], RETIC, FE and TIBC, JOSE, BMP #### [facility] [address] [place] [address] Chloride [Moles/Vol] 104 mmol/L Normal 98-107 [facility] Comment on above: Performed By: #### M G, [id number], RETIC, FE and TIBC, JOSE, BMP #### [facility] [address] [place] [address] CO2 [Moles/Vol] 20.2 mmol/L Low 21.0-31.0 [facility] Comment on above: Performed By: #### M G, [id number], RETIC, FE and TIBC, JOSE, BMP #### [facility] [address] [place] [address] Creatinine [Mass/Vol] 2.31 mg/dL High 0.60-1.20 [facility] Comment on above: Performed By: #### M G, [id number], RETIC, FE and TIBC, JOSE, BMP #### [facility] [address] [place] [address] Creatinine Clr Calc Pharmacy 26.22 [facility] Comment on above: Performed By: #### M G, [id number], RETIC, FE and TIBC, JOSE, BMP #### [address] GFR/1.73 sq M.predicted MDRD (S/P/Bld) [Vol rate/Area] 23.469 mL/min/{1.73_m2} [facility] Comment on above: Performed By: #### M G, [id number], RETIC, FE and TIBC, JOSE, BMP #### [facility] [address] Glucose [Mass/Vol] 89 mg/dL Normal 70-100 [facility] Comment on above: Result Comment: [facility] Glucose Reference Range is dependent on time and content of last meal. Glucose of more than 200 mg/dL in a nonstressed, ambulatory subject supports the diagnosis of Diabetes Mellitus. ADA recommended reference range Performed By: #### M G, [id number], RETIC, FE and TIBC, JOSE, BMP #### [address] Potassium [Moles/Vol] 4.2 mmol/L Normal 3.5-5.1 [facility] Comment on above: Performed By: #### M G, [id number], RETIC, FE and TIBC, JOSE, BMP #### [address] Sodium [Moles/Vol] 131 mmol/L Low 136-145 [facility] Comment on above: Performed By: #### M G, [id number], RETIC, FE and TIBC, JOSE, BMP #### [address] Urea nitrogen [Mass/Vol] 100 mg/dL High 7-25 [facility] Comment on above: Performed By: #### M G, [id number], RETIC, FE and TIBC, JOSE, BMP #### [address] Erythrocyte distribution wid th Auto (RBC) [Ratio]Ordered By: Jim Randhawa on 07-02-2023 Erythrocyte distribution width (RBC) [Ratio] 14.2 % 11.9-15.3 [facility] Hematocrit Auto (Bld) [Volum e fraction]Ordered By: Jim Randhawa on 07-02-2023 Hematocrit (Bld) [Volume fraction] 25.0 % 34.0-46.4 [facility] Hemoglobin [Mass/volume] in BloodOrdered By: Jim Randhawa on 07-02-2023 Hemoglobin (Bld) [Mass/Vol] 8.4 g/dL 11.8-15.4 [facility] Hemogram CBC Without Diffon 07-02-2023 Erythrocyte distribution width (RBC) [Ratio] 14.2 % Normal 11.9-15.3 [facility] Comment on above: Performed By: #### Nadya G, [id number], RETIC, FE and TIBC, JOSE, BMP #### [address] Hematocrit (Bld) [Volume fraction] 25.0 % Low 34.0-46.4 [facility] Comment on above: Performed By: #### Nadya G, [id number], RETIC, FE and TIBC, JOSE, BMP #### [address] Hemoglobin (Bld) [Mass/Vol] 8.4 g/dL Low 11.8-15.4 [facility] Comment on above: Performed By: #### M G, [id number], RETIC, FE and TIBC, JOSE, BMP #### [address] MCH (RBC) [Entitic mass] 32.3 pg Normal 24.7-34.3 [facility] Comment on above: Performed By: #### M G, [id number], RETIC, FE and TIBC, JOSE, BMP #### [address] MCV (RBC) [Entitic vol] 96.6 fL Normal 80-100 [facility] Comment on above: Performed By: #### M G, [id number], RETIC, FE and TIBC, JOSE, BMP #### [address] Mean Corpuscular HGB Conc 33.4 g/dL Normal 32.0-35.0 [facility] Comment on above: Performed By: #### M G, [id number], RETIC, FE and TIBC, JOSE, BMP #### [address] Platelet mean volume (Bld) [Entitic vol] 7.7 fL Normal 6.3-10.7 [facility] Comment on above: Result Comment: PERF ORMED BY: [place] [address] PATHOLOGIST [employer]ATE SECURITY OFFICER TANNER GAVIN M.D. Performed By: #### M G, [id number], RETIC, FE and TIBC, JOSE, BMP #### [address] Platelets (Bld) [#/Vol] 217 10*3/uL Normal 150-450 [facility] Comment on above: Performed By: #### M G, [id number], RETIC, FE and TIBC, JOSE, BMP #### [address] RBC (Bld) [#/Vol] 2.59 10*6/uL Low 3.60-5.00 [facility] Comment on above: Performed By: #### M G, [id number], RETIC, FE and TIBC, JOSE, BMP #### [address] WBC (Bld) [#/Vol] 6.1 10*3/uL Normal 3.8-11.6 [facility] Comment on above: Performed By: #### M G, [id number], RETIC, FE and TIBC, JOSE, BMP #### [place] [address] [place] Leukocytes [#/volume] correc nicol for nucleated erythrocytes in Blood by Automated counOrdered By: Jim Randhawa on 07-02-2023 WBC corrected for nucl RBC Auto (Bld) [#/Vol] 6.1 10*3/uL 3.8-11.6 [facility] MCH Auto (RBC) [Entitic mass ]Ordered By: Jim Randhawa on 07-02-2023 MCH (RBC) [Entitic mass] 32.3 pg 24.7-34.3 [facility] MCHC Auto (RBC) [Mass/Vol]Or dered By: Jim Randhawa on 07-02-2023 MCHC (RBC) [Mass/Vol] 33.4 g/dL 32.0-35.0 [facility] MCV Auto (RBC) [Entitic vol] Ordered By: Jim Randhawa on 07-02-2023 MCV (RBC) [Entitic vol] 96.6 fL 80-100 [facility] Magnesiumon 07-02-2023 Magnesium [Mass/Vol] 2.1 mg/dL Normal 1.9-2.7 [facility] Comment on above: Result Comment: PERF ORMED BY: [facility] [address] [place] [address] PATHOLOGIST [employer]PORATE SECURITY OFFICER TANNER GAVIN M.D. Performed By: #### M G, [id number], RETIC, FE and TIBC, JOSE, BMP #### [facility] [address] Platelet mean volume Auto (B ld) [Entitic vol]Ordered By: Jim Randhawa on 07-02-2023 Platelet mean volume (Bld) [Entitic vol] 7.7 fL 6.3-10.7 [facility] Platelets Auto (Bld) [#/Vol] Ordered By: Jim Randhawa on 07-02-2023 Platelets (Bld) [#/Vol] 217 10*3/uL 150-450 [facility] RBC Auto (Bld) [#/Vol]Ordere d By: Jim Randhawa on 07-02-2023 RBC (Bld) [#/Vol] 2.59 10*6/uL 3.60-5.00 [facility] Basic Metabolic Panelon -0 Anion gap [Moles/Vol] 11.9 mmol/L Normal 6.0-15.0 [facility] Comment on above: Order Comment: LINE DRAW Performed By: #### M G, [id number], RETIC, FE and TIBC, JOSE, BMP #### [facility] [address] Calcium [Mass/Vol] 8.9 mg/dL Normal 8.6-10.3 [facility] Comment on above: Order Comment: LINE DRAW Performed By: #### M G, [id number], RETIC, FE and TIBC, JOSE, BMP #### [address] Chloride [Moles/Vol] 108 mmol/L High 98-107 [facility] Comment on above: Order Comment: LINE DRAW Performed By: #### M G, [id number], RETIC, FE and TIBC, JOSE, BMP #### [address] CO2 [Moles/Vol] 18.5 mmol/L Low 21.0-31.0 [facility] Comment on above: Order Comment: LINE DRAW Performed By: #### M G, [id number], RETIC, FE and TIBC, JOSE, BMP #### [facility] [address] [place] [address] Creatinine [Mass/Vol] 2.63 mg/dL Significan t change up 0.60-1.20 [facility] Comment on above: Order Comment: LINE DRAW Performed By: #### M G, [id number], RETIC, FE and TIBC, JOSE, BMP #### [facility] [address] Creatinine Clr Calc Pharmacy 23.09 [facility] Comment on above: Order Comment: LINE DRAW Performed By: #### M G, [id number], RETIC, FE and TIBC, JOSE, BMP #### [facility] [address] [place] [address] [place] GFR/1.73 sq M.predicted MDRD (S/P/Bld) [Vol rate/Area] 20.085 mL/min/{1.73_m2} Normal [facility] Comment on above: Order Comment: LINE DRAW Performed By: #### M G, [id number], RETIC, FE and TIBC, JOSE, BMP #### [facility] [address] Glucose [Mass/Vol] 128 mg/dL High 70-100 [facility] Comment on above: Order Comment: LINE DRAW Result Comment: [facility] Glucose Reference Range is dependent on time and content of last meal. Glucose of more than 200 mg/dL in a nonstressed, ambulatory subject supports the diagnosis of Diabetes Mellitus. ADA recommended reference range Performed By: #### M G, [id number], RETIC, FE and TIBC, JOSE, BMP #### [facility] [address] Potassium [Moles/Vol] 4.4 mmol/L Normal 3.5-5.1 [facility] Comment on above: Order Comment: LINE DRAW Performed By: #### M G, [id number], RETIC, FE and TIBC, JOSE, BMP #### [facility] [address] Sodium [Moles/Vol] 134 mmol/L Low 136-145 [facility] Comment on above: Order Comment: LINE DRAW Performed By: #### M G, [id number], RETIC, FE and TIBC, JOSE, BMP #### [facility] [address] [place] [address] [place] Urea nitrogen [Mass/Vol] 104 mg/dL High 7-25 [facility] Comment on above: Order Comment: LINE DRAW Performed By: #### M G, [id number], RETIC, FE and TIBC, JOSE, BMP #### [facility] [address] Magnesiumon 07-01-2023 Magnesium [Mass/Vol] 2.3 mg/dL Normal 1.9-2.7 [facility] Comment on above: Order Comment: LINE DRAW Result Comment: PERF ORMED BY: [place] [address] PATHOLOGIST CORPORATE SECURITY OFFICER TANNER GAVIN M.D. Performed By: #### M G, [id number], RETIC, FE and TIBC, JOSE, BMP #### [facility] [address] [place] [address] Basic Metabolic Panelon Anion gap [Moles/Vol] 14.6 mmol/L Normal 6.0-15.0 [facility] Comment on above: Performed By: #### M G, [id number], RETIC, FE and TIBC, JOSE, BMP #### [address] Calcium [Mass/Vol] 8.6 mg/dL Normal 8.6-10.3 [facility] Comment on above: Performed By: #### M G, [id number], RETIC, FE and TIBC, JOSE, BMP #### [address] Chloride [Moles/Vol] 109 mmol/L High 98-107 [facility] Comment on above: Performed By: #### M G, [id number], RETIC, FE and TIBC, JOSE, BMP #### [address] CO2 [Moles/Vol] 15.0 mmol/L Low 21.0-31.0 [facility] Comment on above: Performed By: #### M G, [id number], RETIC, FE and TIBC, JOSE, BMP #### [facility] [address] [place] [address] Creatinine [Mass/Vol] 3.16 mg/dL High 0.60-1.20 [facility] Comment on above: Performed By: #### M G, [id number], RETIC, FE and TIBC, JOSE, BMP #### [facility] [address] [place] [address] [place] Creatinine Clr Calc Pharmacy 19.26 Normal [facility] Comment on above: Performed By: #### M G, [id number], RETIC, FE and TIBC, JOSE, BMP #### [facility] [address] [place] [address] [place] GFR/1.73 sq M.predicted MDRD (S/P/Bld) [Vol rate/Area] 16.114 mL/min/{1.73_m2} [facility] Comment on above: Performed By: #### M G, [id number], RETIC, FE and TIBC, JOSE, BMP #### [facility] [address] Glucose [Mass/Vol] 79 mg/dL Normal 70-100 [facility] Comment on above: Result Comment: [facility] Glucose Reference Range is dependent on time and content of last meal. Glucose of more than 200 mg/dL in a nonstressed, ambulatory subject supports the diagnosis of Diabetes Mellitus. ADA recommended reference range Performed By: #### M G, [id number], RETIC, FE and TIBC, JOSE, BMP #### [address] Potassium [Moles/Vol] 4.6 mmol/L Normal 3.5-5.1 [facility] Comment on above: Performed By: #### M G, [id number], RETIC, FE and TIBC, JOSE, BMP #### [facility] [address] Sodium [Moles/Vol] 134 mmol/L Low 136-145 [facility] Comment on above: Performed By: #### M G, [id number], RETIC, FE and TIBC, JOSE, BMP #### [facility] [address] Urea nitrogen [Mass/Vol] 117 mg/dL High 7-25 [facility] Comment on above: Performed By: #### M G, [id number], RETIC, FE and TIBC, JOSE, BMP #### [facility] [address] [place] [address] [place] Magnesiumon 06-30-2023 Magnesium [Mass/Vol] 2.5 mg/dL Normal 1.9-2.7 [facility] Comment on above: Result Comment: PERF ORMED BY: [facility] [address] [facility] [place] [id number] PATHOLOGIST CORPORATE SECURITY OFFICER TANNER GAVIN M.D. Performed By: #### M G, [id number], RETIC, FE and TIBC, JOSE, BMP #### [facility] [address] [place] [id number] [facility] 36on 04-10-2023 36 Patient states she n eeds to cancel her surgery due to her son being on the transplant list, states she would like to reschedule. Normal [facility] Orders Onlyon 04-05-2023 Orders Only [id number] PinalorenLoren jones marii A 1960 F Date Provider Department Center 04/05/2023 [facility] Family History Family history unknown: Yes Normal [facility] Office Visiton 02-22-2023 Follow-up visit [id number] PinaLoren correa A 1960 Date Provider Department Center 02/22/2023 RHIANNON MEDINA YVONNE Barrios [facility] Family History Family history unknown: Yes Level of Service:16384 [place] OFFICE/OUTPATIENT ESTABLISHED MOD MDM 30-39 MIN Normal [facility] Follow-Upon 02-16-2023 Follow-Up [id number] PinaLoren correaa A 1960 Date Provider Department Center 02/16/2023 [facility] Family History Family history unknown: Yes Level of Service:29957 [place] OFFICE/OUTPATIENT ESTABLISHED LOW MDM 20-29 MIN Reason for Visit and Comments: Pain [136] [facility] Consultation Noteon 02-10-20 Consultation Note [id number]#1.00CD:127 [facility] 36on 02-08-2023 36 Called patient to in form her she needs the CT done before her follow up w/ francisco. The appt has been cancelled and needs rescheduled. [facility] Consultation Noteon 02-09-20 Consultation Note [id number]#[id number]:127 [facility] RAD - MISCon 02-08-2023 RAD - MISC [id number]#[id number]:127 [facility] 29on 01-13-2023 29 Addended by: OLU TORRES on: 02/07/2023 12:47 PM Modules accepted: Orders [facility] Office Visiton 01-13-2023 Follow-up visit [id number] Loren Moser 1960 F Date Provider Department Center 01/13/2023 384[facility] Family History Family history unknown: Yes Level of Service:28770 [place] OFFICE/OUTPATIENT NEW MODERATE MDM 45-59 MINUTES Reason for Visit and Comments: Pain [136] Pain [136] [facility] 36on 12-23-2022 36 Please tell her the renal function is much better now (creatinine 1.4 on 12/20/2022). I don't think she need to increase water pills. Follow up labs as scheduled. [facility] Telephoneon 12-23-2022 Telephone [id number] Loren Moser 1960 F Date Provider Department Center 12/23/2022 BENJIE LERMA YVONNE [facility] No family history on file [facility] Office Visiton 12-15-2022 Follow-up visit [id number] Loren Moser 1960 F Date Provider Department Center 12/15/2022 BENJIE LERMA [facility] No family history on file Level of Service:28713 [place] OFFICE/OUTPATIENT ESTABLISHED MOD MDM 30-39 MIN Reason for Visit and Comments: Follow-up [187601] [facility] HPon 11-30-2022 HP H&P reviewed. The car wasserman was examined and there are no changes to the H&P. [facility] NURSNOTEon 11-30-2022 NURSNOTE RN educated pt on d/ c instructions. RN encouraged pt to voice any questions or concerns. Pt verbalizes no questions or concerns at this time. Pt was walked off of unit with all of belongings. [facility] Orders Onlyon 11-23-2022 Orders Only [id number] Loren Moser 1960 F Date Provider Department Center 11/23/2022 [facility] No family history on file [facility] CBC AUTO DIFFon 11-22-2022 BASO # 0.0 103/ul Normal 0.0-0.1 [facility] Comment on above: Performed By: #### C BC ####[facility] X[address] [place], [place] [address]Dr. Airam Tripathi Basophils/100 WBC (Bld) 0.6 % Normal 0.2-2.0 [facility] Comment on above: Performed By: #### C BC ####[facility] Tyjob[address] [place], [place] [address]Dr. Airam Tripathi EO # 0.1 103/ul Normal 0.0-0.7 [facility] Comment on above: Performed By: #### C BC ####[facility] W[address]uqc[address] [place], [place] [address]Dr. Airam Tripathi Eosinophils/100 WBC (Bld) 1.7 % Normal 0.9-7.0 [facility] Comment on above: Performed By: #### C BC ####[facility] [address] [place], [place] [address]Dr. Airam Tripathi Erythrocyte distribution width (RBC) [Ratio] 15.2 % Critically high 11.0-15.0 [facility] Comment on above: Performed By: #### C BC ####[facility] B[address]cq[address] [place], [place] [address]Dr. Airam Tripathi Hematocrit (Bld) [Volume fraction] 31.6 % Critically low 36.0-48.0 [facility] Comment on above: Performed By: #### C BC ####[facility] N[address]zh[address] [place] [id number]. Airam Tripathi Hemoglobin (Bld) [Mass/Vol] 9.9 g/dL Critically low 12.0-16.0 [facility] Comment on above: Performed By: #### C BC ####[facility] Radik[address]eso[address] [place] [id number]. Airam Tripathi IG # 0.02 10e3/ul Normal 0.00-0.03 [facility] Comment on above: Performed By: #### C BC ####[facility] Ofhin[address]wrvg[address] [place] [address]Dr. Airam Deuce IG % 0.4 % Normal 0.0-0.5 [facility] Comment on above: Performed By: #### C BC ####[facility] [address] [place], [place] [address]Dr. Selenaneil Tripathi LYMPH # 0.8 103/ul Critically low 1.2-3.8 [facility] Comment on above: Performed By: #### C BC ####[facility] [address]gy[address]up[address] [place] [address]Dr. Aiarm Duece Lymphocytes/100 WBC (Bld) 16.9 % Critically low 20.5-60.0 [facility] Comment on above: Performed By: #### C BC ####[facility] R[address]miadnwom[address] [place], [place] [address]Dr. Selenaneil Tripathi MANUAL DIFF REQ NO Normal [facility] Comment on above: Performed By: #### C BC ####[facility] G[address]ecyg[address] [place] [id number]. Airam Deuce MCH (RBC) [Entitic mass] 28.4 pg Normal 26.7-34.0 [facility] Comment on above: Performed By: #### C BC ####[facility] Ihumjxhlen[address] [place] [id number]. Airam Deuce MCHC (RBC) [Mass/Vol] 31.3 g/dL Normal 29.9-35.2 [facility] Comment on above: Performed By: #### C BC ####[facility] Jxcrvrukmv69[address] [place] [id number]. Airam Tripathi MCV (RBC) [Entitic vol] 90.8 fL Normal 81.0-99.0 [facility] Comment on above: Performed By: #### C BC ####[facility] Hstoeabkfm32[address] [place] [id number]. Airam Tripathi MONO # 0.4 103/ul Normal 0.3-0.8 [facility] Comment on above: Performed By: #### C BC ####[facility] Rmxjnptyrm3732 [place] [address]Dr. Airam Tripathi Monocytes/100 WBC (Bld) 8.9 % Normal 1.7-12.0 [facility] Comment on above: Performed By: #### C BC ####[facility] F[address]wisnkew[address] [place], [place] [address]Dr. Airam Tripathi NEUT # 3.4 103/ul Normal 1.4-6.5 [facility] Comment on above: Performed By: #### C BC ####[facility] U[address] [place], [place] [address]Dr. Airam Tripathi Neutrophils/100 WBC (Bld) 71.5 % Normal 43.0-75.0 [facility] Comment on above: Performed By: #### C BC ####[facility] Wxicmp[address]ut[address] [place], [place] [address]Dr. Airam Tripathi Platelet mean volume (Bld) [Entitic vol] 9.4 fL Critically low 9.5-13.5 [facility] Comment on above: Performed By: #### C BC ####[facility] [address]az[address] [place] [id number]. Airam Tripathi PLT 302 103/ul Normal 150-450 [facility] Comment on above: Performed By: #### C BC ####[facility] Z[address]me[address] [place], [place] [address]Dr. Airam Deuce RBC 3.48 106/ul Critically low 4.20-5.40 [facility] Comment on above: Performed By: #### C BC ####[facility] Z[address]ck[address]hyxa[address] [place] [address]Dr. Airam Tripathi WBC 4.7 103/ul Normal 4.0-11.0 [facility] Comment on above: Performed By: #### C BC ####[facility] Wkg[address]fsfjx67[address] [place] [address]Dr. Airam Tripathi PROF 14(COMP METB)on 023 Albumin [Mass/Vol] 3.4 g/dL Normal 3.4-5.0 [facility] Comment on above: Performed By: #### C MP ####[facility] Rkfytqfasr15[address] [place] [address]Dr. Airam Tripathi Albumin/Globulin [Mass ratio] 1.0 {ratio} Normal [facility] Comment on above: Performed By: #### C MP ####[facility] B[address]oxzjcra[address] [place], [place] [address]Dr. Airam Tripathi ALP [Catalytic activity/Vol] 123 U/L Critically high 46-116 [facility] Comment on above: Performed By: #### C MP ####[facility] Hqpixdouex69[address] [place] [address]Dr. Airam Tripathi ALT [Catalytic activity/Vol] 24 U/L Normal 14-59 [facility] Comment on above: Performed By: #### C MP ####[facility] Qlddrvnlsx4545 [place] [address]Dr. Airam Tripathi Anion gap [Moles/Vol] 12.1 mmol/L Normal [facility] Comment on above: Performed By: #### C MP ####[facility] Gpgmhnytzt[address]22 [place] [address]Dr. Airam Tripathi AST [Catalytic activity/Vol] 30 U/L Normal 15-37 [facility] Comment on above: Performed By: #### C MP ####[facility] Ch[address]krqmdq38[address] [place] [address]Dr. Airam Tripathi Bilirubin [Mass/Vol] 0.4 mg/dL Normal 0.2-1.0 [facility] Comment on above: Performed By: #### C MP ####[facility] [address]nl[address] [place], [place] [address]Dr. Airam Tripathi Calcium [Mass/Vol] 8.9 mg/dL Normal 8.5-10.1 [facility] Comment on above: Performed By: #### C MP ####[facility] Zagwoqvvfe8[address] [place] [address]Dr. Airam Tripathi Chloride [Moles/Vol] 95 mmol/L Critically low 98-107 [facility] Comment on above: Performed By: #### C MP ####[facility] Ynvrowvcfd[address] [place], [place] [address]Dr. Airam Tripathi CO2 [Moles/Vol] 28.7 mmol/L Normal 21.0-32.0 [facility] Comment on above: Performed By: #### C MP ####[facility] Plrgmvfqku[address] [place], [place] [address]Dr. Airam Tripathi Creatinine [Mass/Vol] 1.25 mg/dL Critically high 0.55-1.02 [facility] Comment on above: Performed By: #### C MP ####[facility] Ltddsuoban[address] [place], [place] [address]Dr. Airam Tripathi EGFR-AF [place] 53 mL/min/1.73m2 Critically low >=60 [facility] Comment on above: Performed By: #### C MP ####[facility] X[address]akxpmrt[address] [place], [place] [address]Dr. Airam Tripathi EGFR-NON AF [place] 44 mL/min/1.73m2 Critically low >=60 [facility] Comment on above: Performed By: #### C MP ####[facility] Harzwnqokp7[address] [place], [place] [address]Dr. Airam Tripathi Globulin (S) [Mass/Vol] 3.5 g/dL Normal [facility] Comment on above: Performed By: #### C MP ####[facility] Tehgnczryl[address] [place], [place] [address]Dr. Airam Tripathi Glucose [Mass/Vol] 89 mg/dL Normal 74-106 [facility] Comment on above: Performed By: #### C MP ####[facility] Npckykvbpk18[address] [place], [place] [address]Dr. Airam Tripathi Potassium [Moles/Vol] 4.8 mmol/L Normal 3.5-5.1 [facility] Comment on above: Performed By: #### C MP ####[facility] Zhtqxiitpr[address] [place], [place] [address]Dr. Airam Tripathi Protein [Mass/Vol] 6.9 g/dL Normal 6.4-8.2 [facility] Comment on above: Performed By: #### C MP ####[facility] Zyerjluxft[address] [place], [place] [address]Dr. Airam Tripathi Sodium [Moles/Vol] 131 mmol/L Critically low 136-145 [facility] Comment on above: Performed By: #### C MP ####[facility] Njhpgsgdoe[address] [place], [place] [address]Dr. Airam Tripathi Urea nitrogen [Mass/Vol] 37.0 mg/dL Critically high 7.0-18.0 [facility] Comment on above: Performed By: #### C MP ####[facility] Ktfnqxerkf[address] [place], [place] [address]Dr. Airam Tripathi Urea nitrogen/Creatinine [Mass ratio] 29.6 mg/mg Normal [facility] Comment on above: Performed By: #### C MP ####[facility] T[address]qxsbpz[address] [place], [place] [address]Dr. Airam Tripathi OSMOLALITYon 11-18-2022 Osmolality [Osmolality] 293 mosm/kg Normal 275-295 [facility] Comment on above: Performed By: #### O SMO ####[facility] Brrazxfnzp[address] [place], [place] [address]Dr. Airam Tripathi BNPon 11-16-2022 Natriuretic peptide B (Bld) [Mass/Vol] 1142.0 pg/mL Critically high <=900.0 [facility] Comment on above: Performed By: #### B ENVIRONMENTAL ENGINEERING ASSISTANT ####[facility] G[address]bvdaqum[address] [place], [place] [address]Dr. Airam Deuce CBC AUTO DIFFon 11-16-2022 BASO # 0.0 103/ul Normal 0.0-0.1 [facility] Comment on above: Performed By: #### C BC ####[facility] Hrhqgjbhjo[address] [place], [place] [address]Dr. Airam Tripathi Basophils/100 WBC (Bld) 0.3 % Normal 0.2-2.0 [facility] Comment on above: Performed By: #### C BC ####[facility] Onhbtrtjfk23[address] [place], [place] [address]Dr. Airam Tripathi EO # 0.3 103/ul Normal 0.0-0.7 [facility] Comment on above: Performed By: #### C BC ####[facility] Asrjoehbxv[address] [place], [place] [address]Dr. Airam Tripathi Eosinophils/100 WBC (Bld) 4.6 % Normal 0.9-7.0 [facility] Comment on above: Performed By: #### C BC ####[facility] Yqusdqnbuu204[address] [place], [place] [address]Dr. Airam Tripathi Erythrocyte distribution width (RBC) [Ratio] 16.1 % Critically high 11.0-15.0 [facility] Comment on above: Performed By: #### C BC ####[facility] Hqhnecpwpo[address] [place], [place] [address]Dr. Airam Tripathi Hematocrit (Bld) [Volume fraction] 28.0 % Critically low 36.0-48.0 [facility] Comment on above: Performed By: #### C BC ####[facility] Nmgsbafgdd[address] [place], [place] [address]Dr. Airam Tripathi Hemoglobin (Bld) [Mass/Vol] 8.9 g/dL Critically low 12.0-16.0 [facility] Comment on above: Performed By: #### C BC ####[facility] Kzsheehuax[address] [place], [place] [address]Dr. Airam Tripathi IG # 0.02 10e3/ul Normal 0.00-0.03 [facility] Comment on above: Performed By: #### C BC ####[facility] Vvfmqdlptg14[address] [place], [place] [address]Dr. Airam Tripathi IG % 0.3 % Normal 0.0-0.5 [facility] Comment on above: Performed By: #### C BC ####[facility] Ox[address]wpfwqn[address] [place] [address]DrKianna Airam Deuce LYMPH # 1.5 103/ul Normal 1.2-3.8 [facility] Comment on above: Performed By: #### C BC ####[facility] Dhftnwrteu2595 [place] [address]DrKianna Airam Deuce Lymphocytes/100 WBC (Bld) 24.2 % Normal 20.5-60.0 [facility] Comment on above: Performed By: #### C BC ####[facility] [address]vubun[address] [place], [place] [address]DrKianna Selenaneil Tripathi MANUAL DIFF REQ NO Normal [facility] Comment on above: Performed By: #### C BC ####[facility] Hibicnavov[address] [place], [place] [address]DrKianna Airam Deuce MCH (RBC) [Entitic mass] 29.3 pg Normal 26.7-34.0 [facility] Comment on above: Performed By: #### C BC ####[facility] [address]okzrtlan[address] [place], [place] [address]Dr. Airam Deuce MCHC (RBC) [Mass/Vol] 31.8 g/dL Normal 29.9-35.2 [facility] Comment on above: Performed By: #### C BC ####[facility] [address]fgqryx[address] [place], [place] [address]DrKianna Selenaneil Tripathi MCV (RBC) [Entitic vol] 92.1 fL Normal 81.0-99.0 [facility] Comment on above: Performed By: #### C BC ####[facility] Y[address]udd[address] [place], [place] [address]DrKianna Tripathi MONO # 0.6 103/ul Normal 0.3-0.8 [facility] Comment on above: Performed By: #### C BC ####[facility] K[address]zcp[address]bx[address] [place], [place] [address]DrKianna Tripathi Monocytes/100 WBC (Bld) 10.0 % Normal 1.7-12.0 [facility] Comment on above: Performed By: #### C BC ####[facility] Frzkdoyuus[address] [place] [address]Dr. Airam Tripathi NEUT # 3.7 103/ul Normal 1.4-6.5 [facility] Comment on above: Performed By: #### C BC ####[facility] Mcxlyeztnl9518 [place] [address]Dr. Airam Tripathi Neutrophils/100 WBC (Bld) 60.6 % Normal 43.0-75.0 [facility] Comment on above: Performed By: #### C BC ####[facility] Yfsfwmsrga8659 [place] [address]Dr. Airam Tripathi Platelet mean volume (Bld) [Entitic vol] 9.1 fL Critically low 9.5-13.5 [facility] Comment on above: Performed By: #### C BC ####[facility] [address]hdna[address] [place] [address]Dr. Airam Tripathi PLT 242 103/ul Normal 150-450 [facility] Comment on above: Performed By: #### C BC ####[facility] Feijtbuigm3419 [place] [address]Dr. Airam Tripathi RBC 3.04 106/ul Critically low 4.20-5.40 [facility] Comment on above: Performed By: #### C BC ####[facility] Bwvokgvemo2623 [place] [address]Dr. Airam Tripathi WBC 6.1 103/ul Normal 4.0-11.0 [facility] Comment on above: Performed By: #### C BC ####[facility] Zhpwuvxxky2794 [place] [address]Dr. Airam Tripathi CT STROKE HEAD WOon 11-17-19 CT STROKE HEAD WO Normal [facility] PROF CHEM 8 (BAS METB)on Anion gap [Moles/Vol] 9.8 mmol/L Normal [facility] Comment on above: Performed By: #### B MP, HSTROPN ####[facility] Phbpwrwhmp[address]88 [place] [address]Dr. Airam Tripathi Calcium [Mass/Vol] 8.4 mg/dL Critically low 8.5-10.1 [facility] Comment on above: Performed By: #### B GERTRUDE, HSTROPN ####[facility] Jdvyvbgxol[address] [place] [address]Dr. Airam Tripathi Chloride [Moles/Vol] 99 mmol/L Normal 98-107 [facility] Comment on above: Performed By: #### B GERTRUDE, HSTROPN ####[facility] Lkkpcxknhw3381 [place] [address]Dr. Airam Tripathi CO2 [Moles/Vol] 28.3 mmol/L Normal 21.0-32.0 [facility] Comment on above: Performed By: #### B GERTRUDE, HSTROPN ####[facility] [address]vzttd[address] [place], [place] [address]Dr. Airam Tripathi Creatinine [Mass/Vol] 1.40 mg/dL Critically high 0.55-1.02 [facility] Comment on above: Performed By: #### B GERTRUDE, HSTROPN ####[facility] [address]tsqlzi[address] [place], [place] [address]Dr. Airam Tripathi EGFR-AF [place] 46 mL/min/1.73m2 Critically low >=60 [facility] Comment on above: Performed By: #### B GERTRUDE, HSTROPN ####[facility] [address]oykkp[address] [place], [place] [address]Dr. Airam Tripathi EGFR-NON AF [place] 38 mL/min/1.73m2 Critically low >=60 [facility] Comment on above: Performed By: #### B GERTRUDE, HSTROPN ####[facility] [address]xrpqk[address] [place], [place] [address]Dr. Airam Tripathi Glucose [Mass/Vol] 88 mg/dL Normal 74-106 [facility] Comment on above: Performed By: #### B GERTRUDE, HSTROPN ####[facility] [address]yggqqtg[address] [place], [place] [address]Dr. Airam Tripathi Potassium [Moles/Vol] 5.1 mmol/L Normal 3.5-5.1 [facility] Comment on above: Performed By: #### B GERTRUDE, HSTROPN ####[facility] [address]ztbd[address] [place] [address]Dr. Airam Tripathi Sodium [Moles/Vol] 132 mmol/L Critically low 136-145 [facility] Comment on above: Performed By: #### B GERTRUDE, HSTROPN ####[facility] [address] [place] [address]Dr. Selenaneil Tripathi Urea nitrogen [Mass/Vol] 56.0 mg/dL Critically high 7.0-18.0 [facility] Comment on above: Performed By: #### B GERTRUDE, HSTROPN ####[facility] [address] [place] [address]Dr. Airam Tripathi Urea nitrogen/Creatinine [Mass ratio] 40.0 mg/mg Normal [facility] Comment on above: Performed By: #### B GERTRUDE HSTROPN ####[facility] [address]zjjnkxrfb[address] [place], [place] [address]Dr. Airam Deuce TROPONIN, HIGH SENSITIVITYon 11-16-2022 HSTROP 9.9 pg/mL Normal 4.0-51.3 [facility] Comment on above: Result Comment: CUT- OFF POINTS HAVE BEEN ESTABLISHED BASED ON THE FOURTH UNIVERSAL DEFINITIONS OF MYOCARDIALINFARCTION. THE UPPER REFERENCE LIMIT (URL) OF TROPONIN, DEFINED THE 99TH PERCENTILE OFcTnI DISTRIBUTION IN A REFERENCE POPULATION, HAS BEEN CONFIRMED THE DECISION THRESHOLDFOR DC DIAGNOSIS. Performed By: #### B GERTRUDE, HSTROPN ####[facility] Kubvvmywhi0[address] [place], [place] [address]Dr. Airam Deuce XR CHEST 1 Von 11-16-2022 XR CHEST 1 V Normal [facility] CBC AUTO DIFFon 11-11-2022 BASO # 0.0 103/ul Normal 0.0-0.1 [facility] Comment on above: Performed By: #### C BC ####[facility] Itjwqrcnzz[address] [place], [place] [address]Dr. Selenaneil Tripathi Basophils/100 WBC (Bld) 0.4 % Normal 0.2-2.0 [facility] Comment on above: Performed By: #### C BC ####[facility] Skgtruxpmu[address] [place], [place] [address]Dr. Airam Tripathi EO # 0.4 103/ul Normal 0.0-0.7 [facility] Comment on above: Performed By: #### C BC ####[facility] Ps[address]fkqyns[address] [place], [place] [address]Dr. Airam Tripathi Eosinophils/100 WBC (Bld) 4.6 % Normal 0.9-7.0 [facility] Comment on above: Performed By: #### C BC ####[facility] Hiunptkhye8138[address] [place], [place] [address]Dr. Airam Tripathi Erythrocyte distribution width (RBC) [Ratio] 15.8 % Critically high 11.0-15.0 [facility] Comment on above: Performed By: #### C BC ####[facility] Yxwmhnntht93[address] [place], [place] [address]Dr. Airam Tripathi Hematocrit (Bld) [Volume fraction] 30.3 % Critically low 36.0-48.0 [facility] Comment on above: Performed By: #### C BC ####[facility] Iuxuoakznf67[address] [place], [place] [address]Dr. Airam Tripathi Hemoglobin (Bld) [Mass/Vol] 9.3 g/dL Critically low 12.0-16.0 [facility] Comment on above: Performed By: #### C BC ####[facility] Eemwfvyefw[address] [place], [place] [address]Dr. Airam Tripathi IG # 0.03 10e3/ul Normal 0.00-0.03 [facility] Comment on above: Performed By: #### C BC ####[facility] Yrnyvggewp7320[address] [place], [place] [address]Dr. Airam Tripathi IG % 0.4 % Normal 0.0-0.5 [facility] Comment on above: Performed By: #### C BC ####[facility] Baeyxhookx9[address] [place], [place] [address]DrKianna Tripathi LYMPH # 2.0 103/ul Normal 1.2-3.8 [facility] Comment on above: Performed By: #### C BC ####[facility] Wn[address]uhr[address] [place] [address]DrKianna Tripathi Lymphocytes/100 WBC (Bld) 24.5 % Normal 20.5-60.0 [facility] Comment on above: Performed By: #### C BC ####[facility] Bnnjsmnmqb[address] [place], [place] [address]DrKianna Tripathi MANUAL DIFF REQ NO Normal [facility] Comment on above: Performed By: #### C BC ####[facility] Fcukvfeiac04[address] [place], [place] [address]DrKianna Tripathi MCH (RBC) [Entitic mass] 28.9 pg Normal 26.7-34.0 [facility] Comment on above: Performed By: #### C BC ####[facility] Bnitixlbrv2228[address] [place], [place] [address]Dr. Airam Tripathi MCHC (RBC) [Mass/Vol] 30.7 g/dL Normal 29.9-35.2 [facility] Comment on above: Performed By: #### C BC ####[facility] Yzmmgdyssi119[address] [place], [place] [address]DrKianna Tripathi MCV (RBC) [Entitic vol] 94.1 fL Normal 81.0-99.0 [facility] Comment on above: Performed By: #### C BC ####[facility] Bzsdjoioes7950[address] [place], [place] [address]DrKianna Tripathi MONO # 0.7 103/ul Normal 0.3-0.8 [facility] Comment on above: Performed By: #### C BC ####[facility] Cegxlqlqwq2246[address] [place], [place] [address]DrKianna Tripathi Monocytes/100 WBC (Bld) 8.3 % Normal 1.7-12.0 [facility] Comment on above: Performed By: #### C BC ####[facility] Dwuofcipvg3684[address] [place], [place] [address]DrKianna Tripathi NEUT # 5.0 103/ul Normal 1.4-6.5 [facility] Comment on above: Performed By: #### C BC ####[facility] [address]dx[address] [place] [address]DrKianna Tripathi Neutrophils/100 WBC (Bld) 61.8 % Normal 43.0-75.0 [facility] Comment on above: Performed By: #### C BC ####[facility] F[address]bywcs[address] [place] [address]DrKianna Tripathi Platelet mean volume (Bld) [Entitic vol] 9.4 fL Critically low 9.5-13.5 [facility] Comment on above: Performed By: #### C BC ####[facility] Jignoagxci9829[address] [place], [place] [address]DrKianna Tripathi PLT 270 103/ul Normal 150-450 [facility] Comment on above: Performed By: #### C BC ####[facility] Zbfdwqqddm99[address] [place], [place] [address]DrKianna Tripathi RBC 3.22 106/ul Critically low 4.20-5.40 [facility] Comment on above: Performed By: #### C BC ####[facility] Lvhipotpcv[address] [place], [place] [address]DrKianna Tripathi WBC 8.1 103/ul Normal 4.0-11.0 [facility] Comment on above: Performed By: #### C BC ####[facility] Rhadtzfzjo[address] [place], [place] [address]DrKianna Tripathi PROF 14(COMP METB)on 023 Albumin [Mass/Vol] 3.2 g/dL Critically low 3.4-5.0 [facility] Comment on above: Performed By: #### C MP ####[facility] Zqlksjyxwn014[address] [place], [place] [address]DrKianna Tripathi Albumin/Globulin [Mass ratio] 1.0 {ratio} Normal [facility] Comment on above: Performed By: #### C MP ####[facility] Eaccawrzxt2635[address] [place], [place] [address]DrKianna Tripathi ALP [Catalytic activity/Vol] 108 U/L Normal 46-116 [facility] Comment on above: Performed By: #### C MP ####[facility] N[address]pd[address] [place] [address]Dr. Airam Tripathi ALT [Catalytic activity/Vol] 30 U/L Normal 14-59 [facility] Comment on above: Performed By: #### C MP ####[facility] Tlwqjeoyco[address] [place], [place] [address]Dr. Airam Tripathi Anion gap [Moles/Vol] 12.8 mmol/L Normal [facility] Comment on above: Performed By: #### C MP ####[facility] Zitmjibzfy203[address] [place], [place] [address]Dr. Airam Tripathi AST [Catalytic activity/Vol] 33 U/L Normal 15-37 [facility] Comment on above: Performed By: #### C MP ####[facility] Jaltwopebf[address] [place], [place] [address]Dr. Airam Tripathi Bilirubin [Mass/Vol] 0.2 mg/dL Normal 0.2-1.0 [facility] Comment on above: Performed By: #### C MP ####[facility] Oebyswxvrn57[address] [place], [place] [address]Dr. Airam Tripathi Calcium [Mass/Vol] 8.3 mg/dL Critically low 8.5-10.1 [facility] Comment on above: Performed By: #### C MP ####[facility] Sgsrxiqipa33[address] [place], [place] [address]Dr. Airam Tripathi Chloride [Moles/Vol] 99 mmol/L Normal 98-107 [facility] Comment on above: Performed By: #### C MP ####[facility] Uetbrkvcla9564[address] [place], [place] [address]Dr. Airam Tripathi CO2 [Moles/Vol] 27.6 mmol/L Normal 21.0-32.0 [facility] Comment on above: Performed By: #### C MP ####[facility] Flnwgjnbsl[address] [place], [place] [address]Dr. Airam Tripathi Creatinine [Mass/Vol] 2.01 mg/dL Critically high 0.55-1.02 [facility] Comment on above: Performed By: #### C MP ####[facility] [address] [place] [address]Dr. Airam Tripathi EGFR-AF [place] 31 mL/min/1.73m2 Critically low >=60 [facility] Comment on above: Performed By: #### C MP ####[facility] [address] [place] [address]Dr. Airam Tripathi EGFR-NON AF [place] 25 mL/min/1.73m2 Critically low >=60 [facility] Comment on above: Performed By: #### C MP ####[facility] W[address]jiygjrza[address] [place], [place] [address]Dr. Airam Tripathi Globulin (S) [Mass/Vol] 3.2 g/dL Normal [facility] Comment on above: Performed By: #### C MP ####[facility] Rpyeylvxyi6[address] [place], [place] [address]Dr. Airam Tripathi Glucose [Mass/Vol] 158 mg/dL Critically high 74-106 T [facility] Comment on above: Performed By: #### C MP ####[facility] Kvrjjmamhi[address] [place], [place] [address]Dr. Airam Tripathi Potassium [Moles/Vol] 5.4 mmol/L Critically high 3.5-5.1 [facility] Comment on above: Performed By: #### C MP ####[facility] Mlxugxpzpq87[address] [place], [place] [address]Dr. Airam Tripathi Protein [Mass/Vol] 6.4 g/dL Normal 6.4-8.2 [facility] Comment on above: Performed By: #### C MP ####[facility] Pbrqjvlwee[address] [place], [place] [address]Dr. Airam Trpiathi Sodium [Moles/Vol] 134 mmol/L Critically low 136-145 [facility] Comment on above: Performed By: #### C MP ####[facility] Kwpiuizxmf[address] [place], [place] [address]Dr. Airam Tripathi Urea nitrogen [Mass/Vol] 52.0 mg/dL Critically high 7.0-18.0 [facility] Comment on above: Performed By: #### C MP ####[facility] [address] [place], [place] [address]HmKianna Tripathi Urea nitrogen/Creatinine [Mass ratio] 25.9 mg/mg Normal [facility] Comment on above: Performed By: #### C MP ####[facility] [address]emx[address] [place], [place] [address]Ir. Airam Tripathi HPon 11-07-2022 [facility] Card[facility] - [facility] Subjective Mabel Moser is a 62 y.o. year old female patient being seen for 2 week follow up per Sofie Bernard CNP. She says since she was last seen on 10/28, Dr. Santana increased her Entresto to 97-103mg bid, metoprolol to 50mg TID, and hydralazine to 100mg TID. Says she was in [facility] again last Monday with a BP of 214/127. Patient Active Problem List Diagnosis Abnormal weight loss Acute sinusitis Amnesia Anxiety Other specified anxiety disorders Mitral valve regurgitation Pulmonic valve regurgitation Aortic valve regurgitation Arthritis of right knee Benign essential hypertension Bilateral hearing loss Chronic obstructive pulmonary disease (CMS/HCC) CKD (chronic kidney disease) stage 3, GFR 30-59 ml[facility]min [facility] Closed fracture of trochanter of femur ([facility]) Clostridium difficile colitis Coronary arteriosclerosis Diffuse thyroid [...] In the past she was [facility] in 2019 with fluid overload [...] distension. Pal (more content not included)... Normal [facility] Office Visiton 11-07-2022 Follow-up visit [id number] Loren Moser 1960 F Date Provider Department Center 11/07/2022 [facility] No family history on file Level of Service:[address]805 [place] OFFICE/OUTPATIENT ESTABLISHED MOD MDM 30-39 MIN Normal [facility] OSMOLALITYon 11-06-2022 Osmolality [Osmolality] 261 mosm/kg Critically low 275-295 [facility] Comment on above: Performed By: #### O SMO ####[facility] [address] [place] [address]Dr. Airam Tripathi XR HIPS GUMARO 3_4V WO PELVISon 11-04-2022 XR HIPS GUMARO 3_4V WO PELVIS Normal [facility] XR KNEE LT 4V or >on 023 XR KNEE LT 4V or > Normal [facility] BNPon 11-03-2022 Natriuretic peptide B (Bld) [Mass/Vol] 1168.0 pg/mL Critically high <=900.0 [facility] Comment on above: Performed By: #### B ENVIRONMENTAL ENGINEERING ASSISTANT, BMP ####[facility] [address] [place] [address]Dr. Airam Tripathi CBC AUTO DIFFon 11-03-2022 BASO # 0.0 103/ul Normal 0.0-0.1 [facility] Comment on above: Performed By: #### C BC ####[facility] [address] [place] [address]Dr. Airam Tripathi Basophils/100 WBC (Bld) 0.3 % Normal 0.2-2.0 [facility] Comment on above: Performed By: #### C BC ####[facility] [address]suyf[address] [place] [address]Dr. Airam Tripathi EO # 0.2 103/ul Normal 0.0-0.7 [facility] Comment on above: Performed By: #### C BC ####[facility] [address]exavfg[address] [place] [address]Dr. Airam Tripathi Eosinophils/100 WBC (Bld) 1.9 % Normal 0.9-7.0 [facility] Comment on above: Performed By: #### C BC ####[facility] [address]tb[address] [place] [address]Dr. Airam Tripathi Erythrocyte distribution width (RBC) [Ratio] 15.2 % Critically high 11.0-15.0 [facility] Comment on above: Performed By: #### C BC ####[facility] [address]ts[address] [place] [address]Dr. Airam Tripathi Hematocrit (Bld) [Volume fraction] 34.3 % Critically low 36.0-48.0 [facility] Comment on above: Performed By: #### C BC ####[facility] [address]lpjw[address] [place] [address]Dr. Airam Tripathi Hemoglobin (Bld) [Mass/Vol] 11.0 g/dL Critically low 12.0-16.0 [facility] Comment on above: Performed By: #### C BC ####[facility] [address]isdc[address] [place] [address]Dr. Airam Tripathi IG # 0.06 10e3/ul Critically high 0.00-0.03 [facility] Comment on above: Performed By: #### C BC ####[facility] [address]shw[address] [place] [address]Dr. Airam Tripathi IG % 0.5 % Normal 0.0-0.5 [facility] Comment on above: Performed By: #### C BC ####[facility] [address]xb[address] [place] [address]Dr. Airam Deuce LYMPH # 2.3 103/ul Normal 1.2-3.8 [facility] Comment on above: Performed By: #### C BC ####[facility] [address]he[address] [place] [address]Dr. Airam Deuce Lymphocytes/100 WBC (Bld) 20.4 % Critically low 20.5-60.0 [facility] Comment on above: Performed By: #### C BC ####[facility] [address]its[address] [place] [address]Dr. Airam Deuce MANUAL DIFF REQ NO Normal [facility] Comment on above: Performed By: #### C BC ####[facility] [address]imqejnzjt[address] [place] [address]Dr. Airam Deuce MCH (RBC) [Entitic mass] 28.7 pg Normal 26.7-34.0 [facility] Comment on above: Performed By: #### C BC ####[facility] V[address]eyighxgg[address] [place] [address]Dr. Airam Tripathi MCHC (RBC) [Mass/Vol] 32.1 g/dL Normal 29.9-35.2 [facility] Comment on above: Performed By: #### C BC ####[facility] [address]qbyfimq[address] [place] [address]Dr. Airam Deuce MCV (RBC) [Entitic vol] 89.6 fL Normal 81.0-99.0 [facility] Comment on above: Performed By: #### C BC ####[facility] D[address]ilvbefs[address] [place] [address]Dr. Airam Deuce MONO # 0.9 103/ul Critically high 0.3-0.8 [facility] Comment on above: Performed By: #### C BC ####[facility] Hhsqwxbmcn6[address] [place] [address]Dr. Airam Deuce Monocytes/100 WBC (Bld) 8.3 % Normal 1.7-12.0 [facility] Comment on above: Performed By: #### C BC ####[facility] [address]zfdf54[address] [place] [address]Dr. Airam Tripathi NEUT # 7.8 103/ul Critically high 1.4-6.5 [facility] Comment on above: Performed By: #### C BC ####[facility] Fkntcagafs04[address] [place] [address]Dr. Airam Tripathi Neutrophils/100 WBC (Bld) 68.6 % Normal 43.0-75.0 [facility] Comment on above: Performed By: #### C BC ####[facility] [address] [place] [address]Dr. Airam Tripathi Platelet mean volume (Bld) [Entitic vol] 8.9 fL Critically low 9.5-13.5 [facility] Comment on above: Performed By: #### C BC ####[facility] Jss[address]idqdc86[address] [place] [address]Dr. Airam Tripathi PLT 323 103/ul Normal 150-450 [facility] Comment on above: Performed By: #### C BC ####[facility] [address] [place], [place] [address]Dr. Airam Tripathi RBC 3.83 106/ul Critically low 4.20-5.40 [facility] Comment on above: Performed By: #### C BC ####[facility] Qwnhwlzwwg18[address] [place] [address]Dr. Airam Tripathi WBC 11.4 103/ul Critically high 4.0-11.0 [facility] Comment on above: Performed By: #### C BC ####[facility] Vtlpyjrrcb5[address] [place] [address]Dr. Airam Tripathi BASO # 0.0 103/ul Normal 0.0-0.1 [facility] Comment on above: Performed By: #### C BC ####[facility] G[address]ffzwnrut[address] [place], [place] [address]Dr. Airam Tripathi Basophils/100 WBC (Bld) 0.2 % Normal 0.2-2.0 [facility] Comment on above: Performed By: #### C BC ####[facility] C[address]chxhtht[address] [place], [place] [address]Dr. Airam Tripathi EO # 0.1 103/ul Normal 0.0-0.7 [facility] Comment on above: Performed By: #### C BC ####[facility] [address]akqhzht[address] [place] [address]Dr. Airam Tripathi Eosinophils/100 WBC (Bld) 0.7 % Critically low 0.9-7.0 [facility] Comment on above: Performed By: #### C BC ####[facility] [address]qikdmpdp[address] [place], [place] [address]Dr. Airam Tripathi Erythrocyte distribution width (RBC) [Ratio] 15.4 % Critically high 11.0-15.0 [facility] Comment on above: Performed By: #### C BC ####[facility] Zqratcmegs65[address] [place], [place] [address]Dr. Selenaneil Tripathi Hematocrit (Bld) [Volume fraction] 33.6 % Critically low 36.0-48.0 [facility] Comment on above: Performed By: #### C BC ####[facility] K[address]qodsqnv[address] [place], [place] [address]Dr. Airam Tripathi Hemoglobin (Bld) [Mass/Vol] 10.9 g/dL Critically low 12.0-16.0 [facility] Comment on above: Performed By: #### C BC ####[facility] Khmgjarnuh2[address] [place], [place] [address]Dr. Airam Tripathi IG # 0.04 10e3/ul Critically high 0.00-0.03 [facility] Comment on above: Performed By: #### C BC ####[facility] Vpxklrcebe[address] [place], [place] [address]Dr. Selenaneil Tripathi IG % 0.5 % Normal 0.0-0.5 [facility] Comment on above: Performed By: #### C BC ####[facility] Dvbubiwnaq07[address] [place], [place] [address]Dr. Airam Tripathi LYMPH # 1.1 103/ul Critically low 1.2-3.8 [facility] Comment on above: Performed By: #### C BC ####[facility] [address]xdqimxpbn6[address] [place] [address]Dr. Airam Tripathi Lymphocytes/100 WBC (Bld) 13.3 % Critically low 20.5-60.0 [facility] Comment on above: Performed By: #### C BC ####[facility] [address]axwnqerw3[address] [place] [address]Dr. Airam Duece MANUAL DIFF REQ NO Normal [facility] Comment on above: Performed By: #### C BC ####[facility] Igmqshyndg1162 [place] [address]Dr. Airma Deuce MCH (RBC) [Entitic mass] 29.1 pg Normal 26.7-34.0 [facility] Comment on above: Performed By: #### C BC ####[facility] K[address]ksuaqara[address] [place], [place] [address]Dr. Airam Deuce MCHC (RBC) [Mass/Vol] 32.4 g/dL Normal 29.9-35.2 [facility] Comment on above: Performed By: #### C BC ####[facility] [address]ekkrksctm7[address] [place], [place] [address]Dr. Airam Deuce MCV (RBC) [Entitic vol] 89.6 fL Normal 81.0-99.0 [facility] Comment on above: Performed By: #### C BC ####[facility] Z[address]jabiqbhp[address] [place], [place] [address]Dr. Airam Deuce MONO # 0.5 103/ul Normal 0.3-0.8 [facility] Comment on above: Performed By: #### C BC ####[facility] Qtidndpbtv[address] [place], [place] [address]Dr. Selenaneil Tripathi Monocytes/100 WBC (Bld) 6.4 % Normal 1.7-12.0 [facility] Comment on above: Performed By: #### C BC ####[facility] W[address]pbyiqqa[address] [place], [place] [address]Dr. Airam Tripathi NEUT # 6.5 103/ul Normal 1.4-6.5 [facility] Comment on above: Performed By: #### C BC ####[facility] Txwiobdjlp54[address] [place] [address]Dr. Airam Tripathi Neutrophils/100 WBC (Bld) 78.9 % Critically high 43.0-75.0 [facility] Comment on above: Performed By: #### C BC ####[facility] Qvgaadhruv3719 [place] [address]Dr. Airam Tripathi Platelet mean volume (Bld) [Entitic vol] 9.4 fL Critically low 9.5-13.5 [facility] Comment on above: Performed By: #### C BC ####[facility] H[address]fpcyzmrs[address] [place] [address]Dr. Airam Tripathi PLT 314 103/ul Normal 150-450 [facility] Comment on above: Performed By: #### C BC ####[facility] Umcqpfohci5[address] [place] [address]Dr. Airam Tripathi RBC 3.75 106/ul Critically low 4.20-5.40 [facility] Comment on above: Performed By: #### C BC ####[facility] [address]ph[address]vdak[address] [place], [place] [address]Dr. Airam Tripathi WBC 8.3 103/ul Normal 4.0-11.0 [facility] Comment on above: Performed By: #### C BC ####[facility] Harfkwtipm[address] [place], [place] [address]Dr. Airam Tripathi CT HEAD WO CONon 11-03-2022 CT HEAD WO CON Normal [facility] PROF 14(COMP METB)on 023 Albumin [Mass/Vol] 3.2 g/dL Critically low 3.4-5.0 [facility] Comment on above: Performed By: #### C MP ####[facility] [address]qpkvqet[address] [place], [place] [address]Dr. Airam Tripathi Albumin/Globulin [Mass ratio] 0.9 {ratio} Normal [facility] Comment on above: Performed By: #### C MP ####[facility] [address]izkmenry[address] [place], [place] [address]Dr. Airam Deuce ALP [Catalytic activity/Vol] 109 U/L Normal 46-116 [facility] Comment on above: Performed By: #### C MP ####[facility] Bbdiqvdrxh9[address] [place] [id number]. Airam Tripathi ALT [Catalytic activity/Vol] 25 U/L Normal 14-59 [facility] Comment on above: Performed By: #### C MP ####[facility] Mzbdsufnkl2860 [place] [id number]. Airam Tripathi Anion gap [Moles/Vol] 10.9 mmol/L Normal [facility] Comment on above: Performed By: #### C MP ####[facility] Klf[address]hddpz9194 [place] [address]Dr. Airam Tripathi AST [Catalytic activity/Vol] 24 U/L Normal 15-37 [facility] Comment on above: Performed By: #### C MP ####[facility] [address]jiftzhw[address] [place], [place] [address]Dr. Airam Tripathi Bilirubin [Mass/Vol] 0.3 mg/dL Normal 0.2-1.0 [facility] Comment on above: Performed By: #### C MP ####[facility] [address]quefkot[address] [place], [place] [address]Dr. Selenaneil Tripathi Calcium [Mass/Vol] 8.6 mg/dL Normal 8.5-10.1 [facility] Comment on above: Performed By: #### C MP ####[facility] [address] [place], [place] [address]Dr. Airam Tripathi Chloride [Moles/Vol] 95 mmol/L Critically low 98-107 [facility] Comment on above: Performed By: #### C MP ####[facility] [address] [place], [place] [address]Dr. Selenaneil Tripathi CO2 [Moles/Vol] 27.8 mmol/L Normal 21.0-32.0 [facility] Comment on above: Performed By: #### C MP ####[facility] [address] [place], [place] [address]Dr. Airam Tripathi Creatinine [Mass/Vol] 1.07 mg/dL Critically high 0.55-1.02 [facility] Comment on above: Performed By: #### C MP ####[facility] Vbftpnmaxv65[address] [place] [id number]. Airam Tripathi EGFR-AF [place]ORE[place] >60 Normal >=60 [facility] Comment on above: Performed By: #### C MP ####[facility] Ppseumpudo[address] [place] [id number]. Airam Tripathi EGFR-NON AF [place] 52 mL/min/1.73m2 Critically low >=60 [facility] Comment on above: Performed By: #### C MP ####[facility] Fmffejaonk98[address] [place] [id number]. Airam Tripathi Globulin (S) [Mass/Vol] 3.5 g/dL Normal [facility] Comment on above: Performed By: #### C MP ####[facility] Hdyhhcetzf6[address] [place] [id number]. Airam Tripathi Glucose [Mass/Vol] 86 mg/dL Normal 74-106 [facility] Comment on above: Performed By: #### C MP ####[facility] Dxetjcvfdo8676 [place] [id number]. Airam Tripathi Potassium [Moles/Vol] 4.7 mmol/L Normal 3.5-5.1 [facility] Comment on above: Performed By: #### C MP ####[facility] Vzrdqquwta38[address] [place] [id number]. Airam Tripathi Protein [Mass/Vol] 6.7 g/dL Normal 6.4-8.2 [facility] Comment on above: Performed By: #### C MP ####[facility] Qrlwnltepk8840 [place] [id number]. Airam Tripathi Sodium [Moles/Vol] 129 mmol/L Critically low 136-145 [facility] Comment on above: Performed By: #### C MP ####[facility] Gsqzivpjgw024[address] [place] [phone]. Airam Tripathi Urea nitrogen [Mass/Vol] 19.0 mg/dL Critically high 7.0-18.0 [facility] Comment on above: Performed By: #### C MP ####[facility] Mxgftnsrnm87[address] [place] [id number]. Airam Tripathi Urea nitrogen/Creatinine [Mass ratio] 17.8 mg/mg Normal [facility] Comment on above: Performed By: #### C MP ####[facility] [address]hmfrugt[address] [place] [address]Dr. Airam Tripathi PROF CHEM 8 (BAS METB)on Anion gap [Moles/Vol] 9.0 mmol/L Normal [facility] Comment on above: Performed By: #### B ENVIRONMENTAL ENGINEERING ASSISTANT, BMP ####[facility] Ed[address]hs[address]ppoc[address] [place] [address]Dr. Airam Tripathi Calcium [Mass/Vol] 8.5 mg/dL Normal 8.5-10.1 [facility] Comment on above: Performed By: #### B ENVIRONMENTAL ENGINEERING ASSISTANT, BMP ####[facility] Huzq[address] [place], [place] [address]Dr. Airam Tripathi Chloride [Moles/Vol] 93 mmol/L Critically low 98-107 [facility] Comment on above: Performed By: #### B ENVIRONMENTAL ENGINEERING ASSISTANT, BMP ####[facility] [address]qtsub[address] [place], [place] [address]Dr. Airam Tripathi CO2 [Moles/Vol] 28.1 mmol/L Normal 21.0-32.0 [facility] Comment on above: Performed By: #### B ENVIRONMENTAL ENGINEERING ASSISTANT, BMP ####[facility] [address]ysbezifcn[address] [place], [place] [address]Dr. Airam Tripathi Creatinine [Mass/Vol] 1.17 mg/dL Critically high 0.55-1.02 [facility] Comment on above: Performed By: #### B ENVIRONMENTAL ENGINEERING ASSISTANT, BMP ####[facility] Cgeqcmsxlq25[address] [place] [address]Dr. Airam Tripathi EGFR-AF [place] 57 mL/min/1.73m2 Critically low >=60 [facility] Comment on above: Performed By: #### B ENVIRONMENTAL ENGINEERING ASSISTANT, BMP ####[facility] [address] [place], [place] [address]Dr. Airam Tripathi EGFR-NON AF [place] 47 mL/min/1.73m2 Critically low >=60 [facility] Comment on above: Performed By: #### B ENVIRONMENTAL ENGINEERING ASSISTANT, BMP ####[facility] [address] [place] [address]Dr. Airam Tripathi Glucose [Mass/Vol] 107 mg/dL Critically high 74-106 [facility] Comment on above: Performed By: #### B ENVIRONMENTAL ENGINEERING ASSISTANT, BMP ####[facility] Xkmqbfqwtg[address]702 [place] [address]Dr. Airam Tripathi Potassium [Moles/Vol] 4.1 mmol/L Normal 3.5-5.1 [facility] Comment on above: Performed By: #### B ENVIRONMENTAL ENGINEERING ASSISTANT, BMP ####[facility] [address]xylnkerfd[address] [place] [address]Dr. Airam Tripathi Sodium [Moles/Vol] 126 mmol/L Critically low 136-145 [facility] Comment on above: Performed By: #### B ENVIRONMENTAL ENGINEERING ASSISTANT, BMP ####[facility] [address] [place], [place] [address]Dr. Airam Tripathi Urea nitrogen [Mass/Vol] 20.0 mg/dL Critically high 7.0-18.0 [facility] Comment on above: Performed By: #### B ENVIRONMENTAL ENGINEERING ASSISTANT, BMP ####[facility] [address] [place], [place] [address]Dr. Airam Tripathi Urea nitrogen/Creatinine [Mass ratio] 17.1 mg/mg Normal [facility] Comment on above: Performed By: #### B ENVIRONMENTAL ENGINEERING ASSISTANT, BMP ####[facility] S[address]xy[address] [place], [place] [address]Dr. Airam Tripathi XR CHEST 1 Von 11-03-2022 XR CHEST 1 V Normal [facility] Activated partial thrombopla stin time (aPTT) in platelet poor plasma by coagulation aOrdered By: Favian Helm on 10-28-2022 aPTT Coag (PPP) [Time] 31.7 s 25.1-36.5 [facility] Alanine aminotransferase [En zymatic activity/volume] in Serum or PlasmaOrdered By: Favian Helm on 10-28-2022 ALT [Catalytic activity/Vol] 14 U/L 7-52 [facility] Albumin [Mass/volume] in Ser um or Plasma by Bromocresol green (BCG) dye binding methoOrdered By: Favian Helm on 10-28-2022 Albumin BCG dye [Mass/Vol] 3.6 g/dL 3.5-5.7 [facility] Alkaline phosphatase [Enzyma tic activity/volume] in Serum or PlasmaOrdered By: Favian Helm on 10-28-2022 ALP [Catalytic activity/Vol] 84 U/L 34-104 [facility] Aspartate aminotransferase [ Enzymatic activity/volume] in Serum or PlasmaOrdered By: Favian Helm on 10-28-2022 AST [Catalytic activity/Vol] 21 U/L 13-39 [facility] B-Type Natriuretic Peptideon 10-28-2022 Natriuretic peptide B (Bld) [Mass/Vol] 551.0 pg/mL High 5-100 [facility] Comment on above: Result Comment: PERF ORMED BY: [place] [address] PATHOLOGIST CORPORATE SECURITY OFFICER TANNER GAVIN M.D. Performed By: #### M G, [id number], RETIC, FE and TIBC, JOSE, BMP #### [facility] [address] Basophils Auto (Bld) [#/Vol] Ordered By: Favian Helm on 10-28-2022 Basophils (Bld) [#/Vol] 0.0 10*3/uL 0.0-0.2 [facility] Basophils/100 WBC Auto (Bld) Ordered By: Favian Helm on 10-28-2022 Basophils/100 WBC (Bld) 0.4 % . [facility] Bilirubin.total [Mass/volume ] in Serum or PlasmaOrdered By: Favian Helm on 10-28-2022 Bilirubin [Mass/Vol] 0.3 mg/dL 0.3-1.[address] [facility] [address] head/brain wo conon 10-28 CT head/brain wo con [facility] [address] [place] [address] CT Scan Report Signed Patient: Mabel Moser MR#: [id number] : 1960 Acct:[id number] Age/Sex: 62 / F ADM Date: 10/28/22 Loc: ER Room: Type: [facility] ER Attending Dr: Copies to: Favian Helm [...] Baljinder Ball M.D.10/28/2022 7:46 PM Dictation Location: [place] [address] Transcribed By: [facility] 10/28/221945 Dictated By: Baljinder Ball DO 10/28/221934 Signed By: 10/28/221945 Normal [facility] Calcium [Mass/volume] in Ser um or PlasmaOrdered By: Favian Helm on 10-28-2022 Calcium [Mass/Vol] 8.2 mg/dL 8.6-10.3 [facility] Carbon dioxide, total [Moles /volume] in Serum or PlasmaOrdered By: Favian Helm on 10-28-2022 CO2 [Moles/Vol] 25.7 mmol/L 21.0-31.0 [facility] Chloride [Moles/volume] in S andrea or PlasmaOrdered By: Favian Helm on 10-28-2022 Chloride [Moles/Vol] 98 mmol/L 98-107 [facility] Complete Blood Count Auto Di ffon 10-28-2022 Basophils (Bld) [#/Vol] 0.0 10*3/uL Normal 0.0-0.2 [facility] Comment on above: Result Comment: PERF ORMED BY: [place] [address] PATHOLOGIST CORPORATE SECURITY OFFICER TANNER GAVIN M.D. Performed By: #### M G, [id number], RETIC, FE and TIBC, JOSE, BMP #### [address] Basophils/100 WBC (Bld) 0.4 % Normal . [facility] Comment on above: Performed By: #### M G, [id number], RETIC, FE and TIBC, JOSE, BMP #### [address] Eosinophils (Bld) [#/Vol] 0.1 10*3/uL Normal 0.0-0.45 [facility] Comment on above: Performed By: #### M G, [id number], RETIC, FE and TIBC, JOSE, BMP #### [address] Eosinophils/100 WBC (Bld) 1.0 % Normal . [facility] Comment on above: Performed By: #### M G, [id number], RETIC, FE and TIBC, JOSE, BMP #### [address] Erythrocyte distribution width (RBC) [Ratio] 16.5 % High 11.9-15.3 [facility] Comment on above: Performed By: #### M G, [id number], RETIC, FE and TIBC, JOSE, BMP #### [address] Hematocrit (Bld) [Volume fraction] 29.9 % Low 34.0-46.4 [facility] Comment on above: Performed By: #### M G, [id number], RETIC, FE and TIBC, JOSE, BMP #### [address] Hemoglobin (Bld) [Mass/Vol] 9.6 g/dL Low 11.8-15.4 [facility] Comment on above: Performed By: #### M G, [id number], RETIC, FE and TIBC, JOSE, BMP #### [address] Lymphocytes (Bld) [#/Vol] 0.8 10*3/uL Low 1.00-4.8 [facility] Comment on above: Performed By: #### M G, [id number], RETIC, FE and TIBC, JOSE, BMP #### [address] Lymphocytes/100 WBC (Bld) 12.8 % Normal . [facility] Comment on above: Performed By: #### M G, [id number], RETIC, FE and TIBC, JOSE, BMP #### [address] MCH (RBC) [Entitic mass] 28.3 pg Normal 24.7-34.3 [facility] Comment on above: Performed By: #### M G, [id number], RETIC, FE and TIBC, JOSE, BMP #### [address] MCV (RBC) [Entitic vol] 88.3 fL Normal 80-100 [facility] Comment on above: Performed By: #### M G, [id number], RETIC, FE and TIBC, JOSE, BMP #### [address] Mean Corpuscular HGB Conc 32.0 g/dL Normal 32.0-35.0 [facility] Comment on above: Performed By: #### M G, [id number], RETIC, FE and TIBC, JOSE, BMP #### [address] Monocytes (Bld) [#/Vol] 0.2 10*3/uL Normal 0.0-0.8 [facility] Comment on above: Performed By: #### M G, [id number], RETIC, FE and TIBC, JOSE, BMP #### [address] Monocytes/100 WBC (Bld) 17.29 % Normal 0.00-20.00 [facility] Comment on above: Performed By: #### M G, [id number], RETIC, FE and TIBC, JOSE, BMP #### [address] Monocytes/100 WBC (Bld) 2.5 % Normal . [facility] Comment on above: Performed By: #### M G, [id number], RETIC, FE and TIBC, JOSE, BMP #### [address] Neutrophils (Bld) [#/Vol] 5.5 10*3/uL Normal 1.8-7.7 [facility] Comment on above: Performed By: #### M G, [id number], RETIC, FE and TIBC, JOSE, BMP #### [address] Neutrophils/100 WBC (Bld) 83.3 % Normal . [facility] Comment on above: Performed By: #### M G, [id number], RETIC, FE and TIBC, JOSE, BMP #### [address] NRBC% 0.0 /100{WBC} Normal 0-0.5 [facility] Comment on above: Performed By: #### M G, [id number], RETIC, FE and TIBC, JOSE, BMP #### [address] Platelet mean volume (Bld) [Entitic vol] 7.3 fL Normal 6.3-10.7 [facility] Comment on above: Performed By: #### M G, [id number], RETIC, FE and TIBC, JOSE, BMP #### [address] [place] [address] [place] Platelets (Bld) [#/Vol] 260 10*3/uL Normal 150-450 [facility] Comment on above: Performed By: #### M G, [id number], RETIC, FE and TIBC, JOSE, BMP #### [address] RBC (Bld) [#/Vol] 3.38 10*6/uL Low 3.60-5.00 [facility] Comment on above: Performed By: #### M G, [id number], RETIC, FE and TIBC, JOSE, BMP #### [address] WBC (Bld) [#/Vol] 6.6 10*3/uL Normal 3.8-11.6 [facility] Comment on above: Performed By: #### Nadya G, [id number], RETIC, FE and TIBC, JOSE, BMP #### [address] Comprehensive Metabolic Pane elena 10-28-2022 Albumin [Mass/Vol] 3.6 g/dL Normal 3.5-5.7 [facility] Comment on above: Performed By: #### M G, [id number], RETIC, FE and TIBC, JOSE, BMP #### [address] Albumin/Globulin [Mass ratio] 1.6 {ratio} Normal [facility] Comment on above: Performed By: #### M G, [id number], RETIC, FE and TIBC, JOSE, BMP #### [address] ALP [Catalytic activity/Vol] 84 U/L Normal 34-104 [facility] Comment on above: Performed By: #### M G, [id number], RETIC, FE and TIBC, JOSE, BMP #### [address] ALT [Catalytic activity/Vol] 14 U/L Normal 7-52 [facility] Comment on above: Performed By: #### M G, [id number], RETIC, FE and TIBC, JOSE, BMP #### [address] Anion gap [Moles/Vol] 10.0 mmol/L Normal 6.0-15.0 [facility] Comment on above: Performed By: #### M G, [id number], RETIC, FE and TIBC, JOSE, BMP #### [address] AST [Catalytic activity/Vol] 21 U/L Normal 13-39 [facility] Comment on above: Performed By: #### M G, [id number], RETIC, FE and TIBC, JOSE, BMP #### [address] Bilirubin [Mass/Vol] 0.3 mg/dL Normal 0.3-1.0 [facility] Comment on above: Performed By: #### M G, [id number], RETIC, FE and TIBC, JOSE, BMP #### [address] Calcium [Mass/Vol] 8.2 mg/dL Low 8.6-10.3 [facility] Comment on above: Performed By: #### M G, [id number], RETIC, FE and TIBC, JOSE, BMP #### [facility] [address] [place] [address] Chloride [Moles/Vol] 98 mmol/L Normal 98-107 [facility] Comment on above: Performed By: #### M G, [id number], RETIC, FE and TIBC, JOSE, BMP #### [address] CO2 [Moles/Vol] 25.7 mmol/L Normal 21.0-31.0 [facility] Comment on above: Performed By: #### M G, [id number], RETIC, FE and TIBC, JOSE, BMP #### [address] [place] [address] [place] Creatinine [Mass/Vol] 1.23 mg/dL High 0.60-1.20 [facility] Comment on above: Performed By: #### M G, [id number], RETIC, FE and TIBC, JOSE, BMP #### [facility] [address] Creatinine Clr Calc Pharmacy 48.79 [facility] Comment on above: Performed By: #### M G, [id number], RETIC, FE and TIBC, JOSE, BMP #### [facility] [address] GFR/1.73 sq M.predicted MDRD (S/P/Bld) [Vol rate/Area] 50.309 mL/min/{1.73_m2} [facility] Comment on above: Performed By: #### M G, [id number], RETIC, FE and TIBC, JOSE, BMP #### [address] Globulin (S) [Mass/Vol] 2.3 g/dL [facility] Comment on above: Performed By: #### M G, [id number], RETIC, FE and TIBC, JOSE, BMP #### [address] Glucose [Mass/Vol] 98 mg/dL Normal 70-100 [facility] Comment on above: Result Comment: [facility] Glucose Reference Range is dependent on time and content of last meal. Glucose of more than 200 mg/dL in a nonstressed, ambulatory subject supports the diagnosis of Diabetes Mellitus. ADA recommended reference range Performed By: #### M G, [id number], RETIC, FE and TIBC, JOSE, BMP #### [address] Potassium [Moles/Vol] 4.7 mmol/L Normal 3.5-5.1 [facility] Comment on above: Performed By: #### M G, [id number], RETIC, FE and TIBC, JOSE, BMP #### [facility] [address] Protein [Mass/Vol] 5.9 g/dL Low 6.4-8.9 [facility] Comment on above: Performed By: #### M G, [id number], RETIC, FE and TIBC, JOSE, BMP #### [facility] [address] Sodium [Moles/Vol] 129 mmol/L Low 136-145 [facility] Comment on above: Performed By: #### M G, [id number], RETIC, FE and TIBC, JOSE, BMP #### [facility] [address] Urea nitrogen [Mass/Vol] 36 mg/dL High 7-25 [facility] Comment on above: Performed By: #### M G, [id number], RETIC, FE and TIBC, JOSE, BMP #### [facility] [address] Creatine Kinaseon 10-28-2022 CK [Catalytic activity/Vol] 45 U/L Normal [facility] Comment on above: Performed By: #### M G, [id number], RETIC, FE and TIBC, JOSE, BMP #### [address] Creatine kinase [Enzymatic a ctivity/volume] in Serum or PlasmaOrdered By: Favian Helm on 10-28-2022 CK [Catalytic activity/Vol] 45 U/L [facility] Creatinine [Mass/volume] in Serum or PlasmaOrdered By: Favian Helm on 10-28-2022 Creatinine [Mass/Vol] 1.23 mg/dL 0.60-1.20 [facility] ECG 12 lead ECGon 10-28-2022 ECG 12 lead ECG [facility] [address] [place] [address] Electrocardiograph Report Signed Patient: Mabel Moser MR#: [id number] : 1960 Acct:[id number] Age/Sex: 62 / F ADM Date: 10/28/22 Loc: ER Room: Type: [facility] ER Attending Dr: Ordering Provider: Favian [...] normal variant Confirmed by Chris MAURO DO ([id number]) on 10/28/2022 8:40:44 PM Referred By: Electronically Signed By:Chris MAURO DO Transcribed By: MUS Signed By Chris Mauro DO 0 10/28/222039 Normal [facility] Eosinophils Auto (Bld) [#/Vo l]Ordered By: Favian Helm on 10-28-2022 Eosinophils (Bld) [#/Vol] 0.1 10*3/uL 0.0-0.45 [facility] Eosinophils/100 WBC Auto (Bl d)Ordered By: Favian Helm on 10-28-2022 Eosinophils/100 WBC (Bld) 1.0 % . [facility] Erythrocyte distribution wid th Auto (RBC) [Ratio]Ordered By: Favian Helm on 10-28-2022 Erythrocyte distribution width (RBC) [Ratio] 16.5 % 11.9-15.3 [facility] Globulin Calc (S) [Mass/Vol] Ordered By: Favian Helm on 10-28-2022 Globulin (S) [Mass/Vol] 2.3 g/dL [facility] Glucose [Mass/volume] in Ser um or PlasmaOrdered By: Favian Helm on 10-28-2022 Glucose [Mass/Vol] 98 mg/dL 70-100 [facility] Comment on above: ADA recommended refe rence rangeRandom Glucose Reference Range is dependent on time and content of last meal. Glucose of more than 200 mg/dL in a nonstressed, ambulatory subject supports the diagnosis of Diabetes Mellitus. Hematocrit Auto (Bld) [Volum e fraction]Ordered By: Favian Helm on 10-28-2022 Hematocrit (Bld) [Volume fraction] 29.9 % 34.0-46.4 [facility] Hemoglobin [Mass/volume] in BloodOrdered By: Favian Helm on 10-28-2022 Hemoglobin (Bld) [Mass/Vol] 9.6 g/dL 11.8-15.4 [facility] Laboratory - CoagulationOrde red By: Favian Helm on 10-28-2022 PT Coag (PPP) [Time] 11.0 s 9.0-12.9 [facility] Leukocytes [#/volume] correc nicol for nucleated erythrocytes in Blood by Automated counOrdered By: Favian Helm on 10-28-2022 WBC corrected for nucl RBC Auto (Bld) [#/Vol] 6.6 10*3/uL 3.8-11.6 [facility] Lymphocytes Auto (Bld) [#/Vo l]Ordered By: Favian Helm on 10-28-2022 Lymphocytes (Bld) [#/Vol] 0.8 10*3/uL 1.00-4.8 [facility] Lymphocytes/100 WBC Auto (Bl d)Ordered By: Favian Helm on 10-28-2022 Lymphocytes/100 WBC (Bld) 12.8 % . [facility] MCH Auto (RBC) [Entitic mass ]Ordered By: Favian Helm on 10-28-2022 MCH (RBC) [Entitic mass] 28.3 pg 24.7-34.3 [facility] MCHC Auto (RBC) [Mass/Vol]Or dered By: Favian Helm on 10-28-2022 MCHC (RBC) [Mass/Vol] 32.0 g/dL 32.0-35.0 [facility] MCV Auto (RBC) [Entitic vol] Ordered By: Favian Helm on 10-28-2022 MCV (RBC) [Entitic vol] 88.3 fL 80-100 [facility] Magnesiumon 10-28-2022 Magnesium [Mass/Vol] 1.9 mg/dL Normal 1.9-2.7 [facility] Comment on above: Result Comment: PERF ORMED BY: [facility] [address] [place] [address] PATHOLOGIST CORPORATE SECURITY OFFICER TANNER GAVIN M.D. Performed By: #### M G, [id number], RETIC, FE and TIBC, JOSE, BMP #### [address] Magnesium [Mass/volume] in S andrea or PlasmaOrdered By: Favian Helm on 10-28-2022 Magnesium [Mass/Vol] 1.9 mg/dL 1.9-2.7 [facility] Monocyte distribution width [Entitic volume] in Blood by AutomatedOrdered By: Favian Helm on 10-28-2022 Monocyte distribution width Auto (Bld) [Entitic vol] 17.29 % 0.00-20.00 [facility] Monocytes Auto (Bld) [#/Vol] Ordered By: Favian Helm on 10-28-2022 Monocytes (Bld) [#/Vol] 0.2 10*3/uL 0.0-0.8 [facility] Monocytes/100 WBC Auto (Bld) Ordered By: Favian Helm on 10-28-2022 Monocytes/100 WBC (Bld) 2.5 % . [facility] Natriuretic peptide B [Mass/ Vol]Ordered By: Favian Helm on 10-28-2022 Natriuretic peptide B (Bld) [Mass/Vol] 551.0 pg/mL 5-100 [facility] Neutrophils Auto (Bld) [#/Vo l]Ordered By: Favian Helm on 10-28-2022 Neutrophils (Bld) [#/Vol] 5.5 10*3/uL 1.8-7.7 [facility] Neutrophils/100 WBC Auto (Bl d)Ordered By: Favian Helm on 10-28-2022 Neutrophils/100 WBC (Bld) 83.3 % . [facility] No Panel InformationOrdered By: Favian Helm on 10-28-2022 Estimated GFR (CKD-EPI) 50.309 mL/Min [facility] Creatinine Clearance (Chem 48.79 [facility] Nucleated erythrocytes [Pres ence] in Blood by Automated countOrdered By: Favian Helm on 10-28-2022 Nucleated RBC Auto Ql (Bld) 0.0 /100{WBC} 0-0.5 [facility] Office Visiton 10-28-2022 Follow-up visit [id number] Loren Moser 1960 F Date Provider Department Center 10/28/2022 RHIANNON MEDINA [facility] No family history on file Level of Service:[address] [place] OFFICE/OUTPATIENT ESTABLISHED MOD MDM 30-39 MIN Normal [facility] Partial Thromboplastin Timeo n 10-28-2022 aPTT Coag (Bld) [Time] 31.7 s Normal 25.1-36.5 [facility] Comment on above: Result Comment: PERF ORMED BY: [facility] [address] [place] [address] PATHOLOGIST CORPORATE SECURITY OFFICER TANNER GAVIN M.D. Performed By: #### M G, [id number], RETIC, FE and TIBC, JOSE, BMP #### [facility] [address] Platelet mean volume Auto (B ld) [Entitic vol]Ordered By: Favian Helm on 10-28-2022 Platelet mean volume (Bld) [Entitic vol] 7.3 fL 6.3-10.7 [facility] Platelet poor plasma interna tional normalized ratio (INR) by coagulation assay (relatOrdered By: Favian Helm on 10-28-2022 INR Coag (PPP) [Relative time] 1.0 {INR} [facility] Comment on above: INR Therapeutic Rang [...] 10-28-2022 Platelets (Bld) [#/Vol] 260 10*3/uL 150-450 [facility] Potassium [Moles/volume] in Serum or PlasmaOrdered By: Favian Helm on 10-28-2022 Potassium [Moles/Vol] 4.7 mmol/L 3.5-5.1 [facility] Protein [Mass/volume] in Ser um or PlasmaOrdered By: Favian Helm on 10-28-2022 Protein [Mass/Vol] 5.9 g/dL 6.4-8.9 [facility] Prothrombin Time INRon 10-28 INR Coag (PPP) [Relative time] 1.0 {INR} Normal [facility] Comment on above: Result Comment: INR [...] - 4.5 Performed By: #### M G, [id number], RETIC, FE and TIBC, JOSE, BMP #### [facility] [address] PT Coag (PPP) [Time] 11.0 s Normal 9.0-12.9 [facility] Comment on above: Performed By: #### M G, [id number], RETIC, FE and TIBC, JOSE, BMP #### [facility] [address] [place] [address] RBC Auto (Bld) [#/Vol]Ordere d By: Favian Helm on 10-28-2022 RBC (Bld) [#/Vol] 3.38 10*6/uL 3.60-5.00 [facility] Serum or plasma albumin/glob ulin mass ratioOrdered By: Favian Helm on 10-28-2022 Albumin/Globulin [Mass ratio] 1.6 {ratio} [facility] Serum or plasma anion gap de terminationOrdered By: Favian Helm on 10-28-2022 Anion gap [Moles/Vol] 10.0 mmol/L 6.0-15.0 [facility] Sodium [Moles/volume] in Ser um or PlasmaOrdered By: Favian Helm on 10-28-2022 Sodium [Moles/Vol] 129 mmol/L 136-145 [facility] Troponin I High Sensitivityo n 10-28-2022 Troponin I High Sensitivity 5.8 pg/mL Normal 0.0-15.0 [facility] Comment on above: Result Comment: PERF ORMED BY: [place] [address] PATHOLOGIST [employer]PORATE [employer]ITY OFFICER TANNER GAVIN M.D. Performed By: #### M G, [id number], RETIC, FE and TIBC, JOSE, BMP #### [address] Troponin I.cardiac [Mass/vol ume] in Serum or Plasma by Detection limit <= 0.01 ng/Ordered By: Favian Helm on 10-28-2022 Troponin I.cardiac DL <= 0.01 ng/mL [Mass/Vol] 5.8 pg/mL 0.0-15.0 [facility] Urea nitrogen [Mass/volume] in Serum or PlasmaOrdered By: Favian Helm on 10-28-2022 Urea nitrogen [Mass/Vol] 36 mg/dL 7-25 [facility] WBC Auto (Bld) [#/Vol]Ordere d By: Favian Helm on 10-28-2022 WBC (Bld) [#/Vol] 6.6 10*3/uL 3.8-11.6 [facility] XR chest 2V*on 10-28-2022 XR chest 2V* [facility] [place] [address] [place], [place] [id number] XRay Report Signed Patient: Mabel Moser MR#: [id number] : 1960 Acct:[id number] Age/Sex: 62 / F ADM Date: 10/28/22 Loc: ER Room: Type: [facility] ER Attending Dr: Copies to: Favian Helm PA-C Ordering Provider: Favian Helm PA-C Date of Service: 10/28/22 XR/XR chest 2V*: Shortness of Breath/Dyspnea Plain film chest 2 view HISTORY: Fluid overload. Shortness of breath. Headache. COMPARISON: 08/31/2018 FINDINGS: SUPPORT DEVICES: None POSTSURGICAL CHANGES: Right Ohuzgf-u-Kwnh intact with tip overlying the distal SVC. HEART: Within normal limits PULMONARY RAI: Within normal limits MEDIASTINUM: Unremarkable LUNGS AND PLEURA: No acute lung process, pleural effusion or pneumothorax identified. BONY STRUCTURES: Intact ADDITIONAL FINDINGS None XR/XR chest 2V* IMPRESSION: No acute process. Impression dictated by: Baljinder Ball M.D.10/28/2022 7:50 PM Dictation Location: [place] [address] Transcribed By: [facility] 10/28/221949 Dictated By: Baljinder Ball DO 10/28/221945 Signed By: 10/28/221949 [facility] BNPon 10-26-2022 Natriuretic peptide B (Bld) [Mass/Vol] 2657.0 pg/mL Critically high <=900.0 [facility] Comment on above: Performed By: #### C MP, BNP ####[facility] [address] [place], [place] [address]DrKianna Tripathi CBC AUTO DIFFon 10-26-2022 BASO # 0.0 103/ul Normal 0.0-0.1 [facility] Comment on above: Performed By: #### C BC ####[facility] [address] [place], [place] [address]Dr. Airam Tripathi Basophils/100 WBC (Bld) 0.5 % Normal 0.2-2.0 [facility] Comment on above: Performed By: #### C BC ####[facility] [address] [place], [place] [address]DrKianna Tripathi EO # 0.3 103/ul Normal 0.0-0.7 [facility] Comment on above: Performed By: #### C BC ####[facility] L[address]zf[address]aj[address] [place], [place] [address]DrKianna Tripathi Eosinophils/100 WBC (Bld) 4.8 % Normal 0.9-7.0 [facility] Comment on above: Performed By: #### C BC ####[facility] [address]cj[address] [place], [place] [address]DrKianna Tripathi Erythrocyte distribution width (RBC) [Ratio] 15.5 % Critically high 11.0-15.0 [facility] Comment on above: Performed By: #### C BC ####[facility] [address] [place] [address]Dr. Airam Tripathi Hematocrit (Bld) [Volume fraction] 27.7 % Critically low 36.0-48.0 [facility] Comment on above: Performed By: #### C BC ####[facility] Amibamk[address] [place], [place] [address]Dr. Airam Tripathi Hemoglobin (Bld) [Mass/Vol] 8.8 g/dL Critically low 12.0-16.0 [facility] Comment on above: Performed By: #### C BC ####[facility] X[address]mnzdziwo[address] [place], [place] [address]Dr. Airam Tripathi IG # 0.03 10e3/ul Normal 0.00-0.03 [facility] Comment on above: Performed By: #### C BC ####[facility] [address]veowbfu[address] [place], [place] [address]Dr. Selenaneil Tripathi IG % 0.5 % Normal 0.0-0.5 [facility] Comment on above: Performed By: #### C BC ####[facility] Srwpimhlyv3[address] [place], [place] [address]DrKianna Airam Tripathi LYMPH # 1.6 103/ul Normal 1.2-3.8 [facility] Comment on above: Performed By: #### C BC ####[facility] Pj[address]bikspb[address] [place], [place] [address]DrKianna Selenaneil Tripathi Lymphocytes/100 WBC (Bld) 25.5 % Normal 20.5-60.0 [facility] Comment on above: Performed By: #### C BC ####[facility] [address]ub[address] [place], [place] [address]DrKianna Selenaneil Tripathi MANUAL DIFF REQ NO Normal [facility] Comment on above: Performed By: #### C BC ####[facility] Z[address]jtd[address]ttc[address] [place], [place] [address]DrKianna Tripathi MCH (RBC) [Entitic mass] 29.0 pg Normal 26.7-34.0 [facility] Comment on above: Performed By: #### C BC ####[facility] [address] [place] [address]Dr. Airam Deuce MCHC (RBC) [Mass/Vol] 31.8 g/dL Normal 29.9-35.2 [facility] Comment on above: Performed By: #### C BC ####[facility] Znbyawlfwp[address] [place], [place] [address]DrKianna Tripathi MCV (RBC) [Entitic vol] 91.4 fL Normal 81.0-99.0 [facility] Comment on above: Performed By: #### C BC ####[facility] Qnaviqtnfq[address] [place], [place] [address]DrKianna Tripathi MONO # 0.5 103/ul Normal 0.3-0.8 [facility] Comment on above: Performed By: #### C BC ####[facility] V[address]xbwcjyhd[address] [place], [place] [address]Dr. Airam Tripathi Monocytes/100 WBC (Bld) 7.5 % Normal 1.7-12.0 [facility] Comment on above: Performed By: #### C BC ####[facility] D[address]yvxgivf[address] [place], [place] [address]DrKianna Tripathi NEUT # 3.9 103/ul Normal 1.4-6.5 [facility] Comment on above: Performed By: #### C BC ####[facility] Boepiqofwc[address] [place], [place] [address]Dr. Airam Tripathi Neutrophils/100 WBC (Bld) 61.2 % Normal 43.0-75.0 [facility] Comment on above: Performed By: #### C BC ####[facility] Setcnerigz[address] [place], [place] [address]DrKianna Tripathi Platelet mean volume (Bld) [Entitic vol] 9.4 fL Critically low 9.5-13.5 [facility] Comment on above: Performed By: #### C BC ####[facility] Ikpxaypcfr[address] [place], [place] [address]Dr. Airam Tripathi PLT 247 103/ul Normal 150-450 [facility] Comment on above: Performed By: #### C BC ####[facility] [address] [place] [address]Dr. Selenaneil Deuce RBC 3.03 106/ul Critically low 4.20-5.40 [facility] Comment on above: Performed By: #### C BC ####[facility] [address] [place] [address]Dr. Airam Tripathi WBC 6.4 103/ul Normal 4.0-11.0 [facility] Comment on above: Performed By: #### C BC ####[facility] [address] [place] [address]DrKianna Tripathi PROF 14(COMP METB)on 023 Albumin [Mass/Vol] 2.5 g/dL Critically low 3.4-5.0 [facility] Comment on above: Performed By: #### C MP, BNP ####[facility] Ky[address]ltwgai[address] [place], [place] [address]Dr. Airam Tripathi Albumin/Globulin [Mass ratio] 0.9 {ratio} Normal [facility] Comment on above: Performed By: #### C MP, BNP ####[facility] [address] [place] [address]Dr. Airam Tripathi ALP [Catalytic activity/Vol] 108 U/L Normal 46-116 [facility] Comment on above: Performed By: #### C MP, BNP ####[facility] [address]ps[address] [place] [address]Dr. Airam Tripathi ALT [Catalytic activity/Vol] 20 U/L Normal 14-59 [facility] Comment on above: Performed By: #### C MP, BNP ####[facility] [address] [place] [address]DrKianna Tripathi Anion gap [Moles/Vol] 10.4 mmol/L Normal [facility] Comment on above: Performed By: #### C MP, BNP ####[facility] G[address]frojqra[address] [place], [place] [address]Dr. Airam Tripathi AST [Catalytic activity/Vol] 20 U/L Normal 15-37 [facility] Comment on above: Performed By: #### C MP, BNP ####[facility] [address] [place] [address]Dr. Airam Tripathi Bilirubin [Mass/Vol] 0.2 mg/dL Normal 0.2-1.0 [facility] Comment on above: Performed By: #### C MP, BNP ####[facility] Zyndkejlrr[address] [place], [place] [address]Dr. Airam Tripathi Calcium [Mass/Vol] 8.0 mg/dL Critically low 8.5-10.1 [facility] Comment on above: Performed By: #### C MP, BNP ####[facility] Wowaczwche9406[address] [place], [place] [address]Dr. Airam Tripathi Chloride [Moles/Vol] 100 mmol/L Normal 98-107 [facility] Comment on above: Performed By: #### C MP, BNP ####[facility] L[address]krlvpniq9[address] [place], [place] [address]Dr. Airam Tripathi CO2 [Moles/Vol] 28.6 mmol/L Normal 21.0-32.0 [facility] Comment on above: Performed By: #### C MP, BNP ####[facility] Ajziitamxh[address] [place], [place] [address]Dr. Airam Tripathi Creatinine [Mass/Vol] 1.66 mg/dL Critically high 0.55-1.02 [facility] Comment on above: Performed By: #### C MP, BNP ####[facility] Vqqpejrbib[address] [place], [place] [address]Dr. Airam Tripathi EGFR-AF [place] 38 mL/min/1.73m2 Critically low >=60 [facility] Comment on above: Performed By: #### C MP, BNP ####[facility] T[address]qvblwmn[address] [place], [place] [address]Dr. Airam Tripathi EGFR-NON AF [place] 32 mL/min/1.73m2 Critically low >=60 [facility] Comment on above: Performed By: #### C MP, BNP ####[facility] Ibztaypxku3[address] [place], [place] [address]Dr. Airam Tripathi Globulin (S) [Mass/Vol] 2.8 g/dL Normal [facility] Comment on above: Performed By: #### C MP, BNP ####[facility] Hfrcmitbxq[address] [place], [place] [address]Dr. Airam Tripathi Glucose [Mass/Vol] 102 mg/dL Normal 74-106 [facility] Comment on above: Performed By: #### C MP, BNP ####[facility] Zwkikziahv[address] [place], [place] [address]Dr. Airam Tripathi Potassium [Moles/Vol] 5.0 mmol/L Normal 3.5-5.1 [facility] Comment on above: Performed By: #### C MP, BNP ####[facility] M[address]ig[address]zf[address] [place], [place] [address]Dr. Airam Tripathi Protein [Mass/Vol] 5.3 g/dL Critically low 6.4-8.2 [facility] Comment on above: Performed By: #### C MP, BNP ####[facility] Wiiojdnrge[address] [place], [place] [address]Dr. Airam Tripathi Sodium [Moles/Vol] 134 mmol/L Critically low 136-145 [facility] Comment on above: Performed By: #### C MP, BNP ####[facility] Qjxvsroalp[address] [place], [place] [address]Dr. Airam Tripathi Urea nitrogen [Mass/Vol] 45.0 mg/dL Critically high 7.0-18.0 [facility] Comment on above: Performed By: #### C MP, BNP ####[facility] Loubxwpyky[address]18[address] [place], [place] [address]Dr. Airam Tripathi Urea nitrogen/Creatinine [Mass ratio] 27.1 mg/mg Normal [facility] Comment on above: Performed By: #### C MP, BNP ####[facility] [address]rspxphr[address] [place], [place] [address]Dr. Airam Tripathi BNPon 10-25-2022 Natriuretic peptide B (Bld) [Mass/Vol] 4569.0 pg/mL Critically high <=900.0 [facility] Comment on above: Performed By: #### C MP, BNP ####[facility] [address]cp[address] [place] [address]Dr. Airam Deuce CBC AUTO DIFFon 10-25-2022 BASO # 0.0 103/ul Normal 0.0-0.1 [facility] Comment on above: Performed By: #### C BC ####[facility] Idpgwanlfg[address] [place], [place] [address]Dr. Selenaneil Tripathi Basophils/100 WBC (Bld) 0.5 % Normal 0.2-2.0 [facility] Comment on above: Performed By: #### C BC ####[facility] Lmlpvyrpls[address] [place], [place] [address]Dr. Airam Tripathi EO # 0.3 103/ul Normal 0.0-0.7 [facility] Comment on above: Performed By: #### C BC ####[facility] Fvctzvlolc[address] [place], [place] [address]Dr. Selenaneil Tripathi Eosinophils/100 WBC (Bld) 5.6 % Normal 0.9-7.0 [facility] Comment on above: Performed By: #### C BC ####[facility] Nnzrezjhnq65[address] [place], [place] [address]Dr. Airam Tripathi Erythrocyte distribution width (RBC) [Ratio] 15.7 % Critically high 11.0-15.0 [facility] Comment on above: Performed By: #### C BC ####[facility] [address]rmqqufhj[address] [place], [place] [address]Dr. Airam Tripathi Hematocrit (Bld) [Volume fraction] 30.1 % Critically low 36.0-48.0 [facility] Comment on above: Performed By: #### C BC ####[facility] Igihpvdfdf346[address] [place], [place] [address]Dr. Airam Tripathi Hemoglobin (Bld) [Mass/Vol] 9.2 g/dL Critically low 12.0-16.0 [facility] Comment on above: Performed By: #### C BC ####[facility] [address]wf[address] [place] [address]Dr. Airam Tripathi IG # 0.03 10e3/ul Normal 0.00-0.03 [facility] Comment on above: Performed By: #### C BC ####[facility] Azvx[address]qurjq5921 [place] [address]DrKianna Selenaneil Tripathi IG % 0.5 % Normal 0.0-0.5 [facility] Comment on above: Performed By: #### C BC ####[facility] Amsdmxjeby[address] [place], [place] [address]DrKianna Selenaneil Tripathi LYMPH # 1.7 103/ul Normal 1.2-3.8 [facility] Comment on above: Performed By: #### C BC ####[facility] Qmlmdqobsq[address] [place], [place] [address]DrKianna Selenaneil Tripathi Lymphocytes/100 WBC (Bld) 28.9 % Normal 20.5-60.0 [facility] Comment on above: Performed By: #### C BC ####[facility] Z[address]scfzcjc[address] [place], [place] [address]DrKianna Selenaneil Tripathi MANUAL DIFF REQ NO Normal [facility] Comment on above: Performed By: #### C BC ####[facility] Sudtvjydgq[address] [place], [place] [address]DrKianna Airam Deuce MCH (RBC) [Entitic mass] 28.4 pg Normal 26.7-34.0 [facility] Comment on above: Performed By: #### C BC ####[facility] Y[address]sqgjf[address] [place], [place] [address]DrKianna Airam Deuce MCHC (RBC) [Mass/Vol] 30.6 g/dL Normal 29.9-35.2 [facility] Comment on above: Performed By: #### C BC ####[facility] Tr[address]xdbrh[address] [place], [place] [address]DrKianna Selenaneil Tripathi MCV (RBC) [Entitic vol] 92.9 fL Normal 81.0-99.0 [facility] Comment on above: Performed By: #### C BC ####[facility] Q[address]urrfeo[address] [place], [place] [address]Dr. Airam Tripathi MONO # 0.5 103/ul Normal 0.3-0.8 [facility] Comment on above: Performed By: #### C BC ####[facility] K[address]xms[address]ewv[address] [place] [address]Dr. Airam Tripathi Monocytes/100 WBC (Bld) 8.5 % Normal 1.7-12.0 [facility] Comment on above: Performed By: #### C BC ####[facility] Qbrxovripr2594 [place] [address]Dr. Airam Tripathi NEUT # 3.2 103/ul Normal 1.4-6.5 [facility] Comment on above: Performed By: #### C BC ####[facility] S[address]cmngyi26[address] [place] [address]Dr. Airam Tripathi Neutrophils/100 WBC (Bld) 56.0 % Normal 43.0-75.0 [facility] Comment on above: Performed By: #### C BC ####[facility] [address]vnah[address]46 [place] [address]Dr. Airam Tripathi Platelet mean volume (Bld) [Entitic vol] 9.4 fL Critically low 9.5-13.5 [facility] Comment on above: Performed By: #### C BC ####[facility] [address]wxe[address] [place] [address]Dr. Airam Tripathi PLT 272 103/ul Normal 150-450 [facility] Comment on above: Performed By: #### C BC ####[facility] K[address]hdvjk34[address] [place] [address]Dr. Airam Tripathi RBC 3.24 106/ul Critically low 4.20-5.40 [facility] Comment on above: Performed By: #### C BC ####[facility] R[address]tdpedqz[address] [place], [place] [address]Dr. Airam Tripathi WBC 5.8 103/ul Normal 4.0-11.0 [facility] Comment on above: Performed By: #### C BC ####[facility] [address]fxxm[address] [place], [place] [address]DrKianna Airam Tripathi OSMOLALITYon 10-25-2022 Osmolality [Osmolality] 282 mosm/kg Normal 275-295 [facility] Comment on above: Performed By: #### O SMO ####[facility] F[address]qufitiz26[address] [place] [address]Dr. Airam Tripathi PROF 14(COMP METB)on 023 Albumin [Mass/Vol] 2.7 g/dL Critically low 3.4-5.0 [facility] Comment on above: Performed By: #### C MP, BNP ####[facility] [address]vqscbx[address] [place], [place] [address]Dr. Airam Tripathi Albumin/Globulin [Mass ratio] 0.9 {ratio} Normal [facility] Comment on above: Performed By: #### C MP, BNP ####[facility] [address]xx[address]ajfn[address] [place] [address]Dr. Airam Tripathi ALP [Catalytic activity/Vol] 122 U/L Critically high 46-116 [facility] Comment on above: Performed By: #### C MP, BNP ####[facility] [address]enczfgtl[address] [place], [place] [address]Dr. Airam Tripathi ALT [Catalytic activity/Vol] 23 U/L Normal 14-59 [facility] Comment on above: Performed By: #### C MP, BNP ####[facility] Ncdqumpjby6474 [place] [address]Dr. Airam Tripathi Anion gap [Moles/Vol] 10.5 mmol/L Normal [facility] Comment on above: Performed By: #### C MP, BNP ####[facility] X[address]fqhvjy[address] [place], [place] [address]Dr. Airam Tripathi AST [Catalytic activity/Vol] 22 U/L Normal 15-37 [facility] Comment on above: Performed By: #### C MP, BNP ####[facility] Yrshwhntld[address] [place], [place] [address]Dr. Airam Tripathi Bilirubin [Mass/Vol] 0.2 mg/dL Normal 0.2-1.0 [facility] Comment on above: Performed By: #### C MP, BNP ####[facility] Ztilxiqass[address] [place], [place] [address]Dr. Airam Tripathi Calcium [Mass/Vol] 8.3 mg/dL Critically low 8.5-10.1 [facility] Comment on above: Performed By: #### C MP, BNP ####[facility] T[address]pgjqnso[address] [place], [place] [address]Dr. Airam Tripathi Chloride [Moles/Vol] 102 mmol/L Normal 98-107 [facility] Comment on above: Performed By: #### C MP, BNP ####[facility] Emfebmmtzf8[address] [place], [place] [address]Dr. Airam Tripathi CO2 [Moles/Vol] 29.7 mmol/L Normal 21.0-32.0 [facility] Comment on above: Performed By: #### C MP, BNP ####[facility] Oggrsevfup3[address] [place], [place] [address]Dr. Airam Tripathi Creatinine [Mass/Vol] 1.31 mg/dL Critically high 0.55-1.02 [facility] Comment on above: Performed By: #### C MP, BNP ####[facility] Xclbfiypwu[address] [place], [place] [address]Dr. Airam Tripathi EGFR-AF [place] 50 mL/min/1.73m2 Critically low >=60 [facility] Comment on above: Performed By: #### C MP, BNP ####[facility] V[address]cqrmnjn[address] [place], [place] [address]Dr. Airam Tripathi EGFR-NON AF [place] 41 mL/min/1.73m2 Critically low >=60 [facility] Comment on above: Performed By: #### C MP, BNP ####[facility] Ljgugmkgme[address] [place], [place] [address]Dr. Airam Tripathi Globulin (S) [Mass/Vol] 2.9 g/dL Normal [facility] Comment on above: Performed By: #### C MP, BNP ####[facility] Espuuaajhf[address] [place], [place] [address]Dr. Airam Tripathi Glucose [Mass/Vol] 94 mg/dL Normal 74-106 [facility] Comment on above: Performed By: #### C MP, BNP ####[facility] [address]wxddfurbw5[address] [place] [address]Dr. Airam Tripathi Potassium [Moles/Vol] 4.2 mmol/L Normal 3.5-5.1 [facility] Comment on above: Performed By: #### C MP, BNP ####[facility] Uxix[address]ozni[address] [place], [place] [address]Dr. Airam Tripathi Protein [Mass/Vol] 5.6 g/dL Critically low 6.4-8.2 [facility] Comment on above: Performed By: #### C MP, BNP ####[facility] [address]tgwsmuruy24[address] [place], [place] [address]Dr. Airam Tripathi Sodium [Moles/Vol] 138 mmol/L Normal 136-145 [facility] Comment on above: Performed By: #### C MP, BNP ####[facility] Thgwbkyhje[address]37[address] [place], [place] [address]Dr. Airam Tripathi Urea nitrogen [Mass/Vol] 33.0 mg/dL Critically high 7.0-18.0 [facility] Comment on above: Performed By: #### C MP, BNP ####[facility] Msmlgooarm8[address] [place], [place] [address]Dr. Airam Tripathi Urea nitrogen/Creatinine [Mass ratio] 25.2 mg/mg Normal [facility] Comment on above: Performed By: #### C MP, BNP ####[facility] Gxhrshbaqa[address] [place], [place] [address]Dr. Airam Tripathi BNPon 10-24-2022 Natriuretic peptide B (Bld) [Mass/Vol] 3805.0 pg/mL Critically high <=900.0 [facility] Comment on above: Performed By: #### H STROPN, BNP, CMP ####[facility] Xthqxlgfov[address] [place], [place] [address]Dr. Airam Tripathi CBC AUTO DIFFon 10-24-2022 BASO # 0.0 103/ul Normal 0.0-0.1 [facility] Comment on above: Performed By: #### C BC ####[facility] E[address]ljbklac[address] [place], [place] [address]Dr. Airam Tripathi Basophils/100 WBC (Bld) 0.3 % Normal 0.2-2.0 [facility] Comment on above: Performed By: #### C BC ####[facility] J[address]bgckiob[address]85 [place] [address]Dr. Airam Tripathi EO # 0.3 103/ul Normal 0.0-0.7 [facility] Comment on above: Performed By: #### C BC ####[facility] Xqddmhlmka[address] [place], [place] [address]Dr. Airam Tripathi Eosinophils/100 WBC (Bld) 4.2 % Normal 0.9-7.0 [facility] Comment on above: Performed By: #### C BC ####[facility] Zhqsrwgvhm[address] [place], [place] [address]Dr. Airam Tripathi Erythrocyte distribution width (RBC) [Ratio] 15.6 % Critically high 11.0-15.0 [facility] Comment on above: Performed By: #### C BC ####[facility] Kyetogtxjn[address] [place], [place] [address]Dr. Airam Tripathi Hematocrit (Bld) [Volume fraction] 30.0 % Critically low 36.0-48.0 [facility] Comment on above: Performed By: #### C BC ####[facility] [address]pdzwgzl[address] [place], [place] [address]Dr. Airam Tripathi Hemoglobin (Bld) [Mass/Vol] 9.3 g/dL Critically low 12.0-16.0 [facility] Comment on above: Performed By: #### C BC ####[facility] Y[address]uy[address] [place], [place] [address]Dr. Airam Tripathi IG # 0.03 10e3/ul Normal 0.00-0.03 [facility] Comment on above: Performed By: #### C BC ####[facility] Uafojhoahx[address] [place], [place] [address]Dr. Airam Tripathi IG % 0.5 % Normal 0.0-0.5 [facility] Comment on above: Performed By: #### C BC ####[facility] [address]fp[address]lj[address] [place] [id number]. Airam Deuce LYMPH # 1.4 103/ul Normal 1.2-3.8 [facility] Comment on above: Performed By: #### C BC ####[facility] [address]jgwcsueg[address] [place] [address]Dr. Airam Deuce Lymphocytes/100 WBC (Bld) 22.5 % Normal 20.5-60.0 [facility] Comment on above: Performed By: #### C BC ####[facility] Pctziqqimk[address] [place] [address]Dr. Selenaneil Tripathi MANUAL DIFF REQ NO Normal [facility] Comment on above: Performed By: #### C BC ####[facility] Kgmfcvbqnx[address] [place] [address]Dr. Airam Deuce MCH (RBC) [Entitic mass] 28.7 pg Normal 26.7-34.0 [facility] Comment on above: Performed By: #### C BC ####[facility] Squwtqwrud[address] [place], [place] [address]Dr. Airam Deuce MCHC (RBC) [Mass/Vol] 31.0 g/dL Normal 29.9-35.2 [facility] Comment on above: Performed By: #### C BC ####[facility] Ztoqkacsym[address] [place], [place] [address]Dr. Selenaneil Tripathi MCV (RBC) [Entitic vol] 92.6 fL Normal 81.0-99.0 [facility] Comment on above: Performed By: #### C BC ####[facility] Kijvlnnbcn[address] [place], [place] [address]Dr. Selenaneil Tripathi MONO # 0.4 103/ul Normal 0.3-0.8 [facility] Comment on above: Performed By: #### C BC ####[facility] Gmqhignlel[address] [place], [place] [address]Dr. Selenaneil Tripathi Monocytes/100 WBC (Bld) 7.3 % Normal 1.7-12.0 [facility] Comment on above: Performed By: #### C BC ####[facility] Euhkobulvy[address] [place], [place] [address]Dr. Airam Tripathi NEUT # 3.9 103/ul Normal 1.4-6.5 [facility] Comment on above: Performed By: #### C BC ####[facility] S[address]vttsxty[address]63 [place] [address]Dr. Airam Tripathi Neutrophils/100 WBC (Bld) 65.2 % Normal 43.0-75.0 [facility] Comment on above: Performed By: #### C BC ####[facility] Nylqizooar75[address] [place] [address]Dr. Airam Tripathi Platelet mean volume (Bld) [Entitic vol] 9.0 fL Critically low 9.5-13.5 [facility] Comment on above: Performed By: #### C BC ####[facility] Zolcozymed[address] [place] [address]Dr. Airam Tripathi PLT 247 103/ul Normal 150-450 [facility] Comment on above: Performed By: #### C BC ####[facility] Xlujjsluds[address]90 [place] [address]Dr. Airam Tripathi RBC 3.24 106/ul Critically low 4.20-5.40 [facility] Comment on above: Performed By: #### C BC ####[facility] Kfstlimwve9719 [place] [address]Dr. Airam Tripathi WBC 6.0 103/ul Normal 4.0-11.0 [facility] Comment on above: Performed By: #### C BC ####[facility] Gmfjfebgzh4[address] [place] [address]Dr. Airam Tripathi CULTURE URINEon 10-24-2022 CULTURE URINE Culture Observations : LIGHT GROWTH OF MIXED GENITAL GREGORY. NO POTENTIAL PATHOGENS SEEN. Normal [facility] Comment on above: Performed By: #### U RCX ####[facility] Hphmqjumez[address] [place] [address]Dr. Airam Tripathi POINT OF CARE GLUCOSEon Glucose [Mass/Vol] 118 mg/dL Critically high 74-106 T [facility] Comment on above: Performed By: #### P OCGLUC ####[facility] Naibalt[address]zw[address] [place] [address]Dr. Airam Tripathi PROF 14(COMP METB)on 023 Albumin [Mass/Vol] 3.1 g/dL Critically low 3.4-5.0 [facility] Comment on above: Performed By: #### H STROPN, BNP, CMP ####[facility] Isdgieqbxl[address] [place] [address]Dr. Airam Tripathi Albumin/Globulin [Mass ratio] 1.0 {ratio} Normal [facility] Comment on above: Performed By: #### H STROPN, BNP, CMP ####[facility] Suqngcvgtg8653 [place] [address]Dr. Airam Tripatih ALP [Catalytic activity/Vol] 131 U/L Critically high 46-116 [facility] Comment on above: Performed By: #### H STROPN, BNP, CMP ####[facility] Dornzhycuv6737 [place] [address]Dr. Airam Tripathi ALT [Catalytic activity/Vol] 26 U/L Normal 14-59 [facility] Comment on above: Performed By: #### H STROPN, BNP, CMP ####[facility] Ywepjriobe[address] [place], [place] [address]Dr. Airam Tripathi Anion gap [Moles/Vol] 11.2 mmol/L Normal [facility] Comment on above: Performed By: #### H STROPN, BNP, CMP ####[facility] Qfwkxuoupz2164 [place] [address]Dr. Airam Tripathi AST [Catalytic activity/Vol] 31 U/L Normal 15-37 [facility] Comment on above: Performed By: #### H STROPN, BNP, CMP ####[facility] Onfzirjael5371 [place] [address]Dr. Airam Tripathi Bilirubin [Mass/Vol] 0.2 mg/dL Normal 0.2-1.0 [facility] Comment on above: Performed By: #### H STROPN, BNP, CMP ####[facility] Gfwhnijxlc6569 [place] [address]Dr. Airam Tripathi Calcium [Mass/Vol] 8.6 mg/dL Normal 8.5-10.1 [facility] Comment on above: Performed By: #### H STROPN, BNP, CMP ####[facility] Biumvgovko8130 [place] [address]Dr. Airam Tripathi Chloride [Moles/Vol] 102 mmol/L Normal 98-107 [facility] Comment on above: Performed By: #### H STROPN, BNP, CMP ####[facility] Vxocjhikdu5668 [place] [address]Dr. Airam Tripathi CO2 [Moles/Vol] 27.4 mmol/L Normal 21.0-32.0 [facility] Comment on above: Performed By: #### H STROPN, BNP, CMP ####[facility] Ghakruufbb9639 [place] [address]Dr. Airam Tripathi Creatinine [Mass/Vol] 1.23 mg/dL Critically high 0.55-1.02 [facility] Comment on above: Performed By: #### H STROPN, BNP, CMP ####[facility] Knaiirmgej[address] [place] [address]Dr. Airam Tripathi EGFR-AF [place] 54 mL/min/1.73m2 Critically low >=60 [facility] Comment on above: Performed By: #### H STROPN, BNP, CMP ####[facility] Bhccybuvew5745 [place] [address]Dr. Airam Tripathi EGFR-NON AF [place] 45 mL/min/1.73m2 Critically low >=60 [facility] Comment on above: Performed By: #### H STROPN, BNP, CMP ####[facility] Pazrxdboyl5165 [place] [address]Dr. Airam Tripathi Globulin (S) [Mass/Vol] 3.1 g/dL Normal [facility] Comment on above: Performed By: #### H STROPN, BNP, CMP ####[facility] Ndpkfshnlt6822 [place] [address]Dr. Airam Tripathi Glucose [Mass/Vol] 90 mg/dL Normal 74-106 [facility] Comment on above: Performed By: #### H STROPN, BNP, CMP ####[facility] Gmifoexyub4722 [place] [address]Dr. Airam Tripathi Potassium [Moles/Vol] 5.6 mmol/L Critically high 3.5-5.1 [facility] Comment on above: Performed By: #### H STROPN, BNP, CMP ####[facility] Mmujrwpsgz6981 [place] [address]Dr. Airam Tripathi Protein [Mass/Vol] 6.2 g/dL Critically low 6.4-8.2 [facility] Comment on above: Performed By: #### H STROPN, BNP, CMP ####[facility] Wamxcejfeb5621 [place] [address]Dr. Airam Tripathi Sodium [Moles/Vol] 135 mmol/L Critically low 136-145 [facility] Comment on above: Performed By: #### H STROPN, BNP, CMP ####[facility] Zchmllkrym2889 [place] [address]Dr. Airam Tripathi Urea nitrogen [Mass/Vol] 38.0 mg/dL Critically high 7.0-18.0 [facility] Comment on above: Performed By: #### H STROPN, BNP, CMP ####[facility] Tlntsyoycc[address] [place], [place] [address]Dr. Airam Tripathi Urea nitrogen/Creatinine [Mass ratio] 30.9 mg/mg Normal [facility] Comment on above: Performed By: #### H STROPN, BNP, CMP ####[facility] Jaqdodjccs24[address] [place] [address]Dr. Airam Tripathi TROPONIN, HIGH SENSITIVITYon 10-24-2022 HSTROP 8.0 pg/mL Normal 4.0-51.3 [facility] Comment on above: Result Comment: CUT- OFF POINTS HAVE BEEN ESTABLISHED BASED ON THE FOURTH UNIVERSAL DEFINITIONS OF MYOCARDIALINFARCTION. THE UPPER REFERENCE LIMIT (URL) OF TROPONIN, DEFINED THE 99TH PERCENTILE OFcTnI DISTRIBUTION IN A REFERENCE POPULATION, HAS BEEN CONFIRMED THE DECISION THRESHOLDFOR DC DIAGNOSIS. Performed By: #### H STROPN, BNP, CMP ####[facility] Se[address]qdzbkzm[address] [place], [place] [address]Dr. Airam Tripathi UA RANDOM W/MICROSCOPICon BACTERIA NONE SEEN Normal NONE SEEN [facility] Comment on above: Performed By: #### U AMIC ####[facility] Lqijhdysgm1137 [place] [address]Dr. Ariam Tripathi Bilirubin Ql (U) Negative Normal NEGATIVE [facility] Comment on above: Performed By: #### U AMIC ####[facility] Z[address]hebjejt3525 [place] [address]Dr. Airam Tripathi CAST NONE SEEN Normal NONE SEEN [facility] Comment on above: Performed By: #### U AMIC ####[facility] Nhtqozmzsm4435 [place] [address]Dr. Airam Tripathi Clarity (U) CLEAR Normal CLEAR [facility] Comment on above: Performed By: #### U AMIC ####[facility] Sdednnjrlj7315 [place] [address]Dr. Airam Tripathi Color (U) LT. YELLOW Normal YELLOW [facility] Comment on above: Performed By: #### U AMIC ####[facility] Pogrbdbprv3784 [place] [address]Dr. Airam Tripathi Crystals LM Nom (Urine sed) NONE SEEN Normal NONE SEEN [facility] Comment on above: Performed By: #### U AMIC ####[facility] Usakyekfiz9091 [place] [address]Dr. Airam Tripathi Epithelial cells LM Ql (Urine sed) RARE Normal NONE SEEN /RARE [facility] Comment on above: Performed By: #### U AMIC ####[facility] Onadnbavzj5948 [place] [address]Dr. Airam Tripathi Glucose Ql (U) Negative Normal NEGATIVE [facility] Comment on above: Performed By: #### U AMIC ####[facility] Ehvafmpjmn6204 [place] [address]Dr. Airam Tripathi Hemoglobin Ql (U) Negative Normal NEGATIVE [facility] Comment on above: Performed By: #### U AMIC ####[facility] Wojjnbudmr[address] [place], [place] [address]Dr. Airam Tripathi Ketones Ql (U) Negative Normal NEGATIVE [facility] Comment on above: Performed By: #### U AMIC ####[facility] Vnmytkaciz[address] [place], [place] [address]Dr. Airam Tripathi LEUKOCYTES Negative Normal NEGATIVE [facility] Comment on above: Performed By: #### U AMIC ####[facility] Esahefjfug0625 [place] [address]Dr. Airam Tripathi MUCOUS NONE SEEN Normal NONE SEEN [facility] Comment on above: Performed By: #### U AMIC ####[facility] Lxevqtgocz[address] [place], [place] [address]Dr. Airam Tripathi Nitrite Ql (U) Negative Normal NEGATIVE [facility] Comment on above: Performed By: #### U AMIC ####[facility] Coppxzdcrl5[address] [place], [place] [address]Dr. Airam Tripathi pH (U) 7.0 [pH] Normal 5-9 [facility] Comment on above: Performed By: #### U AMIC ####[facility] Rjenvegdsr7[address] [place], [place] [address]Dr. Airam Tripathi RBC 0-2 Normal 0-2 [facility] Comment on above: Performed By: #### U AMIC ####[facility] Snfaznpdaw[address] [place], [place] [address]Dr. Airam Tripathi SPEC GRAVITY 1.015 Normal 1.005-<=1. 025 [facility] Comment on above: Performed By: #### U AMIC ####[facility] Mmbasgwlbi5035[address] [place], [place] [address]Dr. Airam Tripathi UA PROTEIN Negative Normal NEGATIVE/ TRACE [facility] Comment on above: Performed By: #### U AMIC ####[facility] Afmceoalmu95[address] [place], [place] [address]Dr. Airam Tripathi Urobilinogen Qn (U) 0.2 {Ligia'U}/dL Normal 0.2 - 1. 0 [facility] Comment on above: Performed By: #### U AMIC ####[facility] [address]zvlcwedjy01[address] [place], [place] [address]Dr. Airam Tripathi WBC NONE SEEN Normal NONE SEEN [facility] Comment on above: Performed By: #### U AMIC ####[facility] Mfehcqjrlu8782 [place] [address]Dr. Airam Tripathi XR CHEST 1 Von 10-24-2022 XR CHEST 1 V Normal [facility] CBC AUTO DIFFon 10-19-2022 BASO # 0.0 103/ul Normal 0.0-0.1 [facility] Comment on above: Performed By: #### C BC ####[facility] Gjnwtztpvp4136 [place] [address]Dr. Airam Tripathi Basophils/100 WBC (Bld) 0.5 % Normal 0.2-2.0 [facility] Comment on above: Performed By: #### C BC ####[facility] Dijsyswwiw3044 [place] [address]Dr. Airam Tripathi EO # 0.3 103/ul Normal 0.0-0.7 [facility] Comment on above: Performed By: #### C BC ####[facility] Rkhowaybia0220 [place] [address]Dr. Airam Tripathi Eosinophils/100 WBC (Bld) 3.3 % Normal 0.9-7.0 [facility] Comment on above: Performed By: #### C BC ####[facility] Sydhzlrwfw0563 [place] [address]Dr. Selenaneil Tripathi Erythrocyte distribution width (RBC) [Ratio] 15.0 % Normal 11.0-15.0 [facility] Comment on above: Performed By: #### C BC ####[facility] Tyfvurvuwa55[address] [place], [place] [address]Dr. Airam Tripathi Hematocrit (Bld) [Volume fraction] 32.9 % Critically low 36.0-48.0 [facility] Comment on above: Performed By: #### C BC ####[facility] Ftslpwsyjd7103 [place] [address]Dr. Selenaneil Tripathi Hemoglobin (Bld) [Mass/Vol] 10.1 g/dL Critically low 12.0-16.0 [facility] Comment on above: Performed By: #### C BC ####[facility] Ymlsnypmpa6730 [place] [id number]. Airam Tripathi IG # 0.04 10e3/ul Critically high 0.00-0.03 [facility] Comment on above: Performed By: #### C BC ####[facility] Isroqmpkqo3205 [place] [address]Dr. Airam Tripathi IG % 0.5 % Normal 0.0-0.5 [facility] Comment on above: Performed By: #### C BC ####[facility] Kpmgrbiopf1874 [place] [address]Dr. Airam Deuce LYMPH # 1.5 103/ul Normal 1.2-3.8 [facility] Comment on above: Performed By: #### C BC ####[facility] Pgnsdjohww2192 [place] [address]Dr. Airam Tripathi Lymphocytes/100 WBC (Bld) 18.1 % Critically low 20.5-60.0 [facility] Comment on above: Performed By: #### C BC ####[facility] Gaveprxesn6698 [place] [address]Dr. Airam Tripathi MANUAL DIFF REQ NO Normal [facility] Comment on above: Performed By: #### C BC ####[facility] Sthnskrdcn5797 [place] [address]Dr. Airam Deuce MCH (RBC) [Entitic mass] 28.3 pg Normal 26.7-34.0 [facility] Comment on above: Performed By: #### C BC ####[facility] [address]ze[address] [place], [place] [address]Dr. Airam Tripathi MCHC (RBC) [Mass/Vol] 30.7 g/dL Normal 29.9-35.2 [facility] Comment on above: Performed By: #### C BC ####[facility] Qgqwrajnui7328 [place] [id number]. Airam Deuce MCV (RBC) [Entitic vol] 92.2 fL Normal 81.0-99.0 [facility] Comment on above: Performed By: #### C BC ####[facility] Pxvvdpftte3862 [place] [phone]. Airam Tripathi MONO # 0.7 103/ul Normal 0.3-0.8 [facility] Comment on above: Performed By: #### C BC ####[facility] Lxlugohizq1424 [place] [address]Dr. Airam Tripathi Monocytes/100 WBC (Bld) 7.7 % Normal 1.7-12.0 [facility] Comment on above: Performed By: #### C BC ####[facility] Nxyknfoezz3294 [place] [phone]. Airam Tripathi NEUT # 5.9 103/ul Normal 1.4-6.5 [facility] Comment on above: Performed By: #### C BC ####[facility] Ivdlsmbzur7077 [place] [address]Dr. Airam Tripathi Neutrophils/100 WBC (Bld) 69.9 % Normal 43.0-75.0 [facility] Comment on above: Performed By: #### C BC ####[facility] Gfwstgults7524 [place] [phone]. Airam Tripathi Platelet mean volume (Bld) [Entitic vol] 9.3 fL Critically low 9.5-13.5 [facility] Comment on above: Performed By: #### C BC ####[facility] Dsdtqoxllz4862 [place] [id number]. Airam Tripathi PLT 293 103/ul Normal 150-450 [facility] Comment on above: Performed By: #### C BC ####[facility] Bhmptocokk3873 [place] [phone]. Airam Tripathi RBC 3.57 106/ul Critically low 4.20-5.40 [facility] Comment on above: Performed By: #### C BC ####[facility] Xogrbehtqp4780 [place] [id number]. Airam Tripathi WBC 8.4 103/ul Normal 4.0-11.0 [facility] Comment on above: Performed By: #### C BC ####[facility] Bvlznstnpo8409 [place] [address]Dr. Airam Tripathi PROF 14(COMP METB)on 023 Albumin [Mass/Vol] 3.1 g/dL Critically low 3.4-5.0 [facility] Comment on above: Performed By: #### C MP ####[facility] Ujucftinuq[address] [place], [place] [address]Dr. Airam Tripathi Albumin/Globulin [Mass ratio] 0.9 {ratio} Normal [facility] Comment on above: Performed By: #### C MP ####[facility] Vkohremstx8[address] [place], [place] [address]Dr. Airam Tripathi ALP [Catalytic activity/Vol] 117 U/L Critically high 46-116 [facility] Comment on above: Performed By: #### C MP ####[facility] Ezpqtismai344[address] [place], [place] [address]Dr. Airam Tripathi ALT [Catalytic activity/Vol] 24 U/L Normal 14-59 [facility] Comment on above: Performed By: #### C MP ####[facility] Pcxiytvbop8[address] [place], [place] [address]Dr. Airam Tripathi Anion gap [Moles/Vol] 11.1 mmol/L Normal [facility] Comment on above: Performed By: #### C MP ####[facility] Qpkqqfbobb4534[address] [place], [place] [address]Dr. Airam Tripathi AST [Catalytic activity/Vol] 22 U/L Normal 15-37 [facility] Comment on above: Performed By: #### C MP ####[facility] Mnffotqmoq26[address] [place], [place] [address]Dr. Airam Tripathi Bilirubin [Mass/Vol] 0.2 mg/dL Normal 0.2-1.0 [facility] Comment on above: Performed By: #### C MP ####[facility] Duiohvqaue228[address] [place], [place] [address]Dr. Airam Tripathi Calcium [Mass/Vol] 8.4 mg/dL Critically low 8.5-10.1 [facility] Comment on above: Performed By: #### C MP ####[facility] Cnsqosodow5259 [place] [id number]. Airam Tripathi Chloride [Moles/Vol] 103 mmol/L Normal 98-107 [facility] Comment on above: Performed By: #### C MP ####[facility] Psjjnbpjuw[address] [place], [place] [address]Dr. iAram Tripathi CO2 [Moles/Vol] 25.0 mmol/L Normal 21.0-32.0 [facility] Comment on above: Performed By: #### C MP ####[facility] Ytxqhvdhlp[address] [place], [place] [address]Dr. Airam Tripathi Creatinine [Mass/Vol] 1.27 mg/dL Critically high 0.55-1.02 [facility] Comment on above: Performed By: #### C MP ####[facility] Miftqsckkh17[address] [place], [place] [address]Dr. Airam Tripathi EGFR-AF [place] 52 mL/min/1.73m2 Critically low >=60 [facility] Comment on above: Performed By: #### C MP ####[facility] [address]cdhqwevt[address] [place], [place] [address]Dr. Airam Tripathi EGFR-NON AF [place] 43 mL/min/1.73m2 Critically low >=60 [facility] Comment on above: Performed By: #### C MP ####[facility] Tkztrrehyp[address] [place], [place] [address]Dr. Airam Tripathi Globulin (S) [Mass/Vol] 3.3 g/dL Normal [facility] Comment on above: Performed By: #### C MP ####[facility] Mpivkmuddv14[address] [place], [place] [address]Dr. Airam Tripathi Glucose [Mass/Vol] 90 mg/dL Normal 74-106 [facility] Comment on above: Performed By: #### C MP ####[facility] Eyrlksglwl525[address] [place], [place] [address]Dr. Airam Tripathi Potassium [Moles/Vol] 5.1 mmol/L Normal 3.5-5.1 [facility] Comment on above: Performed By: #### C MP ####[facility] Pspmqxqchk6180 [place] [id number]. Airam Tripathi Protein [Mass/Vol] 6.4 g/dL Normal 6.4-8.2 [facility] Comment on above: Performed By: #### C MP ####[facility] Jodjsvxhye4237 [place] [address]Dr. Airam Tripathi Sodium [Moles/Vol] 134 mmol/L Critically low 136-145 [facility] Comment on above: Performed By: #### C MP ####[facility] Hiyzlvxgoz8613 [place] [address]Dr. Airam Deuce Urea nitrogen [Mass/Vol] 33.0 mg/dL Critically high 7.0-18.0 [facility] Comment on above: Performed By: #### C MP ####[facility] Hcfuhovxvc99[address] [place], [place] [address]Dr. Airam Tripathi Urea nitrogen/Creatinine [Mass ratio] 26.0 mg/mg Normal [facility] Comment on above: Performed By: #### C MP ####[facility] Yladwlbdkc1181 [place] [address]Dr. Airam Deuce OSMOLALITYon 10-15-2022 Osmolality [Osmolality] 272 mosm/kg Critically low 275-295 [facility] Comment on above: Performed By: #### O SMO ####[facility] [address]wvwamcz[address] [place], [place] [address]Dr. Selenaneil Deuce 36on 10-12-2022 36 Can you get the henry ining labs please Normal [facility] 36 [facility] lab called to re port critical BNP of 1,337. FYI Normal [facility] BNPon 10-12-2022 Natriuretic peptide B (Bld) [Mass/Vol] 1337.0 pg/mL Critically high <=900.0 [facility] Comment on above: Performed By: #### B ENVIRONMENTAL ENGINEERING ASSISTANT ####[facility] Vrbpwzpvlz[address] [place], [place] [address]Dr. Airam Deuce CBC AUTO DIFFon 10-12-2022 BASO # 0.0 103/ul Normal 0.0-0.1 [facility] Comment on above: Performed By: #### C BC ####[facility] Wuiahaheyd6716 [place] [phone]. Airam Tripathi Basophils/100 WBC (Bld) 0.6 % Normal 0.2-2.0 [facility] Comment on above: Performed By: #### C BC ####[facility] T[address]ccuxrrr[address] [place], [place] [id number]. iAram Tripathi EO # 0.2 103/ul Normal 0.0-0.7 [facility] Comment on above: Performed By: #### C BC ####[facility] Yphccmuici[address] [place], [place] [address]Dr. Airam Deuce Eosinophils/100 WBC (Bld) 2.3 % Normal 0.9-7.0 [facility] Comment on above: Performed By: #### C BC ####[facility] [address]rljotjec[address] [place], [place] [address]Dr. Airam Tripathi Erythrocyte distribution width (RBC) [Ratio] 15.1 % Critically high 11.0-15.0 [facility] Comment on above: Performed By: #### C BC ####[facility] Ycerugtwbs[address] [place], [place] [address]Dr. Airam Tripathi Hematocrit (Bld) [Volume fraction] 35.9 % Critically low 36.0-48.0 [facility] Comment on above: Performed By: #### C BC ####[facility] Sqzbjnrukb[address] [place], [place] [address]Dr. Airam Tripathi Hemoglobin (Bld) [Mass/Vol] 11.4 g/dL Critically low 12.0-16.0 [facility] Comment on above: Performed By: #### C BC ####[facility] Xkgkkpxmuv58[address] [place], [place] [address]Dr. Airam Deuce IG # 0.03 10e3/ul Normal 0.00-0.03 [facility] Comment on above: Performed By: #### C BC ####[facility] Vooqnsznrt4[address] [place], [place] [address]Dr. Airam Tripathi IG % 0.5 % Normal 0.0-0.5 [facility] Comment on above: Performed By: #### C BC ####[facility] Xgrxtgbgwb2731 [place] [address]DrKianna Tripathi LYMPH # 1.1 103/ul Critically low 1.2-3.8 [facility] Comment on above: Performed By: #### C BC ####[facility] Ueqoeavglm0056 [place] [phone]. Airam Tripathi Lymphocytes/100 WBC (Bld) 17.2 % Critically low 20.5-60.0 [facility] Comment on above: Performed By: #### C BC ####[facility] Obpgrfnujp15[address] [place], [place] [address]DrKianna Tripathi MANUAL DIFF REQ NO Normal [facility] Comment on above: Performed By: #### C BC ####[facility] Sesxyenwnv7[address] [place], [place] [address]DrKianna Tripathi MCH (RBC) [Entitic mass] 28.8 pg Normal 26.7-34.0 [facility] Comment on above: Performed By: #### C BC ####[facility] Hhyowyypzg2228 [place] [address]Dr. Airam Tripathi MCHC (RBC) [Mass/Vol] 31.8 g/dL Normal 29.9-35.2 [facility] Comment on above: Performed By: #### C BC ####[facility] Fdsgtmqblh5[address] [place], [place] [address]DrKianna Tripathi MCV (RBC) [Entitic vol] 90.7 fL Normal 81.0-99.0 [facility] Comment on above: Performed By: #### C BC ####[facility] Ejhxngxdqy8[address] [place], [place] [id number] Tripathi MONO # 0.5 103/ul Normal 0.3-0.8 [facility] Comment on above: Performed By: #### C BC ####[facility] Hzoqlnbdtk8024 [place] [phone] Tripathi Monocytes/100 WBC (Bld) 7.7 % Normal 1.7-12.0 [facility] Comment on above: Performed By: #### C BC ####[facility] Rvygagkrkc9868 [place] [phone]. Airam Tripathi NEUT # 4.7 103/ul Normal 1.4-6.5 [facility] Comment on above: Performed By: #### C BC ####[facility] Oznirtirgt9027 [place] [phone] Tripathi Neutrophils/100 WBC (Bld) 71.7 % Normal 43.0-75.0 [facility] Comment on above: Performed By: #### C BC ####[facility] Dolpzmlbpr8521 [place] [address]DrKianna Tripathi Platelet mean volume (Bld) [Entitic vol] 8.2 fL Critically low 9.5-13.5 [facility] Comment on above: Performed By: #### C BC ####[facility] Nwavizgewv2541 [place] [address]Dr. Airam Tripathi PLT 292 103/ul Normal 150-450 [facility] Comment on above: Performed By: #### C BC ####[facility] Dseglxafik9649 [place] [address]Dr. Airam Tripathi RBC 3.96 106/ul Critically low 4.20-5.40 [facility] Comment on above: Performed By: #### C BC ####[facility] Skjkycoces7388 [place] [phone] Tripathi WBC 6.6 103/ul Normal 4.0-11.0 [facility] Comment on above: Performed By: #### C BC ####[facility] Zbdvalozxe3865 [place] [phone] Tripathi PROF 14(COMP METB)on 023 Albumin [Mass/Vol] 3.3 g/dL Critically low 3.4-5.0 [facility] Comment on above: Performed By: #### C MP ####[facility] Ircylowobw0564 [place] [address]DrKianna Tripathi Albumin/Globulin [Mass ratio] 0.9 {ratio} Normal [facility] Comment on above: Performed By: #### C MP ####[facility] Kanvgvubgj3508 [place] [address]Dr. Airam Deuce ALP [Catalytic activity/Vol] 130 U/L Critically high 46-116 [facility] Comment on above: Performed By: #### C MP ####[facility] Ykatamvgfc5299 [place] [address]Dr. Airam Deuce ALT [Catalytic activity/Vol] 23 U/L Normal 14-59 [facility] Comment on above: Performed By: #### C MP ####[facility] Euelcbgnny4660 [place] [address]Dr. Airam Tripathi Anion gap [Moles/Vol] 11.7 mmol/L Normal [facility] Comment on above: Performed By: #### C MP ####[facility] Rraxfbnbrq8[address] [place], [place] [address]Dr. Airam Tripathi AST [Catalytic activity/Vol] 23 U/L Normal 15-37 [facility] Comment on above: Performed By: #### C MP ####[facility] Wycjtfospq176[address] [place], [place] [address]Dr. Airam Tripathi Bilirubin [Mass/Vol] 0.3 mg/dL Normal 0.2-1.0 [facility] Comment on above: Performed By: #### C MP ####[facility] Byvxlmexoc8253 [place] [address]Dr. Airam Tripathi Calcium [Mass/Vol] 8.7 mg/dL Normal 8.5-10.1 [facility] Comment on above: Performed By: #### C MP ####[facility] Vwpxjfgjyo8054 [place] [address]Dr. Airam Tripathi Chloride [Moles/Vol] 99 mmol/L Normal 98-107 [facility] Comment on above: Performed By: #### C MP ####[facility] Pdbdsuswhm6614 [place] [address]Dr. Airam Tripathi CO2 [Moles/Vol] 28.5 mmol/L Normal 21.0-32.0 [facility] Comment on above: Performed By: #### C MP ####[facility] Xfvrilamqg2618 [place] [address]Dr. Airam Tripathi Creatinine [Mass/Vol] 1.06 mg/dL Critically high 0.55-1.02 [facility] Comment on above: Performed By: #### C MP ####[facility] Pkfwqzuvdb1010 [place] [address]Dr. Airam Deuce EGFR-AF [place] >60 Normal >=60 [facility] Comment on above: Performed By: #### C MP ####[facility] Ptolqoiwzg9939 [place] [address]Dr. Airam Deuce EGFR-NON AF [place] 53 mL/min/1.73m2 Critically low >=60 [facility] Comment on above: Performed By: #### C MP ####[facility] Sqkdppgihb18[address] [place], [place] [address]Dr. Airam Deuce Globulin (S) [Mass/Vol] 3.5 g/dL Normal [facility] Comment on above: Performed By: #### C MP ####[facility] Moxcskcocr5773 [place] [address]Dr. Airam Deuce Glucose [Mass/Vol] 79 mg/dL Normal 74-106 [facility] Comment on above: Performed By: #### C MP ####[facility] Atgjrtynmq3119 [place] [address]Dr. Airam Deuce Potassium [Moles/Vol] 4.2 mmol/L Normal 3.5-5.1 [facility] Comment on above: Performed By: #### C MP ####[facility] Upnvozskzi8090 [place] [address]Dr. Airam Tripathi Protein [Mass/Vol] 6.8 g/dL Normal 6.4-8.2 [facility] Comment on above: Performed By: #### C MP ####[facility] Ecvysbtqhq9966 [place] [address]Dr. Airam Deuce Sodium [Moles/Vol] 135 mmol/L Critically low 136-145 [facility] Comment on above: Performed By: #### C MP ####[facility] Ekhlwfkzbm6707 [place] [phone]. Airam Tripathi Urea nitrogen [Mass/Vol] 16.0 mg/dL Normal 7.0-18.0 [facility] Comment on above: Performed By: #### C MP ####[facility] Tqzcphgfae4699 [place] [phone]. Airam Tripathi Urea nitrogen/Creatinine [Mass ratio] 15.1 mg/mg Normal [facility] Comment on above: Performed By: #### C MP ####[facility] Nlutcbtmkz1378 [place] [phone]. Selenaneil Deuce XR CHEST 1 Von 10-12-2022 XR CHEST 1 V Normal [facility] Office Visiton 10-10-2022 Follow-up visit [id number] Loren Moser 1960 F Date Provider Department Center 10/10/2022 [facility]DR[facility] No family history on file Level of Service:33078 [place] OFFICE/OUTPATIENT ESTABLISHED MOD MDM 30-39 MIN Reason for Visit and Comments: Congestive Heart Failure [127] Re-establish care [Other] Normal [facility] PRBC LEUKOREDUCEDon 10-10-19 23 PRBC LEUKOREDUCED Normal [facility] Comment on above: Performed By: #### P RBC ####[facility] Ttclbfpait2690 [place] [address]Dr. Selenaneil Tripathi CULTURE URINEon 10-08-2022 CULTURE URINE Normal [facility] Comment on above: Performed By: #### U RCX ####[facility] Bbnzruamxa0722 [place] [phone]. Airam Triptahi OSMOLALITYon 10-08-2022 Osmolality [Osmolality] 282 mosm/kg Normal 275-295 [facility] Comment on above: Performed By: #### O SMO ####[facility] Kiqceecgef4780 [place] [phone]. Selenaneil Deuce CBC AUTO DIFFon 10-07-2022 BASO # 0.0 103/ul Normal 0.0-0.1 [facility] Comment on above: Performed By: #### C BC ####[facility] Tehsaispnv4220 [place] [phone]. Airam Tripathi Basophils/100 WBC (Bld) 0.3 % Normal 0.2-2.0 [facility] Comment on above: Performed By: #### C BC ####[facility] Wzajqycvgg[address] [place], [place] [id number]. Airam Tripathi EO # 0.2 103/ul Normal 0.0-0.7 [facility] Comment on above: Performed By: #### C BC ####[facility] Ooohbqvius8[address] [place], [place] [address]Dr. Airam Tirpathi Eosinophils/100 WBC (Bld) 3.4 % Normal 0.9-7.0 [facility] Comment on above: Performed By: #### C BC ####[facility] Apbceroolc2140[address] [place], [place] [address]Dr. Airam Tripathi Erythrocyte distribution width (RBC) [Ratio] 15.2 % Critically high 11.0-15.0 [facility] Comment on above: Performed By: #### C BC ####[facility] Plmexjrpda[address] [place], [place] [address]Dr. Airam Tripathi Hematocrit (Bld) [Volume fraction] 31.3 % Critically low 36.0-48.0 [facility] Comment on above: Performed By: #### C BC ####[facility] Hwgraouzqv126[address] [place], [place] [address]Dr. Airam Tripathi Hemoglobin (Bld) [Mass/Vol] 9.9 g/dL Critically low 12.0-16.0 [facility] Comment on above: Performed By: #### C BC ####[facility] Auvamfqliw22[address] [place], [place] [address]Dr. Airam Tripathi IG # 0.03 10e3/ul Normal 0.00-0.03 [facility] Comment on above: Performed By: #### C BC ####[facility] Rolthgkwgv6817[address] [place], [place] [address]Dr. Airam Tripathi IG % 0.4 % Normal 0.0-0.5 [facility] Comment on above: Performed By: #### C BC ####[facility] Felpypindc6144 [place] [phone]. Airam Tripathi LYMPH # 1.3 103/ul Normal 1.2-3.8 [facility] Comment on above: Performed By: #### C BC ####[facility] Ilyodgqgrf3661 [place] [phone]. Airam Tripathi Lymphocytes/100 WBC (Bld) 19.0 % Critically low 20.5-60.0 [facility] Comment on above: Performed By: #### C BC ####[facility] Vejfvwzhyb1296 [place] [address]Dr. Airam Tripathi MANUAL DIFF REQ NO Normal [facility] Comment on above: Performed By: #### C BC ####[facility] Clmgnjpgxt2205 [place] [address]Dr. Airam Tripathi MCH (RBC) [Entitic mass] 28.1 pg Normal 26.7-34.0 [facility] Comment on above: Performed By: #### C BC ####[facility] Vuehvluvxs5531 [place] [phone]. Airam Tripathi MCHC (RBC) [Mass/Vol] 31.6 g/dL Normal 29.9-35.2 [facility] Comment on above: Performed By: #### C BC ####[facility] Uythxdiskp5548 [place] [phone]. Airam Tripathi MCV (RBC) [Entitic vol] 88.9 fL Normal 81.0-99.0 [facility] Comment on above: Performed By: #### C BC ####[facility] Qrgdribixk6170 [place] [phone]. Airam Tripathi MONO # 0.6 103/ul Normal 0.3-0.8 [facility] Comment on above: Performed By: #### C BC ####[facility] Srwukrxtoh8704 [place] [phone]. Airam Tripathi Monocytes/100 WBC (Bld) 9.0 % Normal 1.7-12.0 [facility] Comment on above: Performed By: #### C BC ####[facility] Xrrxqcuikk7222 [place] [phone]. Airam Tripathi NEUT # 4.5 103/ul Normal 1.4-6.5 [facility] Comment on above: Performed By: #### C BC ####[facility] Rltivmjreh0239 [place] [phone]. Airam Tripathi Neutrophils/100 WBC (Bld) 67.9 % Normal 43.0-75.0 [facility] Comment on above: Performed By: #### C BC ####[facility] Segpiffipw9741 [place] [phone]. Selenaneil Deuce Platelet mean volume (Bld) [Entitic vol] 9.1 fL Critically low 9.5-13.5 [facility] Comment on above: Performed By: #### C BC ####[facility] Capjmxbava9721 [place] [address]Dr. Airam Tripathi PLT 256 103/ul Normal 150-450 [facility] Comment on above: Performed By: #### C BC ####[facility] Salxtcdoin8689 [place] [phone]. Selenaneil Deuce RBC 3.52 106/ul Critically low 4.20-5.40 [facility] Comment on above: Performed By: #### C BC ####[facility] Hugjiusupa8880 [place] [phone]. Airam Tripathi WBC 6.7 103/ul Normal 4.0-11.0 [facility] Comment on above: Performed By: #### C BC ####[facility] Fpanvbimqf8705 [place] [phone] Tripathi PROF 14(COMP METB)on 023 Albumin [Mass/Vol] 2.8 g/dL Critically low 3.4-5.0 [facility] Comment on above: Performed By: #### C MP ####[facility] Dixpaxvhxk2303 [place] [phone] Tripathi Albumin/Globulin [Mass ratio] 0.9 {ratio} Normal [facility] Comment on above: Performed By: #### C MP ####[facility] Tulxjpcajx1830 [place] [address]Dr. Airam Tripathi ALP [Catalytic activity/Vol] 118 U/L Critically high 46-116 [facility] Comment on above: Performed By: #### C MP ####[facility] Xiwscbmqqc7965 [place] [address]Dr. Airam Tripathi ALT [Catalytic activity/Vol] 23 U/L Normal 14-59 [facility] Comment on above: Performed By: #### C MP ####[facility] Zrzchixhbe8268 [place] [address]Dr. Airam Tripathi Anion gap [Moles/Vol] 12.5 mmol/L Normal [facility] Comment on above: Performed By: #### C MP ####[facility] Rnneorrnpx64[address] [place], [place] [address]Dr. Airam Tripathi AST [Catalytic activity/Vol] 21 U/L Normal 15-37 [facility] Comment on above: Performed By: #### C MP ####[facility] Leqctrsesm729[address] [place], [place] [address]Dr. Airam Tripathi Bilirubin [Mass/Vol] 0.4 mg/dL Normal 0.2-1.0 [facility] Comment on above: Performed By: #### C MP ####[facility] Zvlgipfqbx599[address] [place], [place] [address]Dr. Airam Deuce Calcium [Mass/Vol] 8.2 mg/dL Critically low 8.5-10.1 [facility] Comment on above: Performed By: #### C MP ####[facility] Zmccnzbjdk5633 [place] [address]Dr. Airam Deuce Chloride [Moles/Vol] 99 mmol/L Normal 98-107 [facility] Comment on above: Performed By: #### C MP ####[facility] Hgrheuziie9155 [place] [address]Dr. Airam Tripathi CO2 [Moles/Vol] 24.9 mmol/L Normal 21.0-32.0 [facility] Comment on above: Performed By: #### C MP ####[facility] Grcibyrrvh5935 [place] [phone]. Airam Tripathi Creatinine [Mass/Vol] 1.61 mg/dL Critically high 0.55-1.02 [facility] Comment on above: Performed By: #### C MP ####[facility] Qbhdblppkk6836 [place] [phone]. Airam Deuce EGFR-AF [place] 40 mL/min/1.73m2 Critically low >=60 [facility] Comment on above: Performed By: #### C MP ####[facility] Lhzeajcopa7692 [place] [address]Dr. Airam Deuce EGFR-NON AF [place] 33 mL/min/1.73m2 Critically low >=60 [facility] Comment on above: Performed By: #### C MP ####[facility] Devkzjaiam6766 [place] [address]Dr. Airam Deuce Globulin (S) [Mass/Vol] 3.2 g/dL Normal [facility] Comment on above: Performed By: #### C MP ####[facility] Azvphbwywt1351 [place] [address]Dr. Airam Deuce Glucose [Mass/Vol] 67 mg/dL Critically low 74-106 [facility] Comment on above: Performed By: #### C MP ####[facility] Jjtuvlsdcy4208 [place] [address]Dr. Airam Deuce Potassium [Moles/Vol] 5.4 mmol/L Critically high 3.5-5.1 [facility] Comment on above: Performed By: #### C MP ####[facility] Vtjtkosmdq1329 [place] [address]Dr. Airam Tripathi Protein [Mass/Vol] 6.0 g/dL Critically low 6.4-8.2 [facility] Comment on above: Performed By: #### C MP ####[facility] Nfsdjhwfqy4994 [place] [address]Dr. Airam Tripathi Sodium [Moles/Vol] 131 mmol/L Critically low 136-145 [facility] Comment on above: Performed By: #### C MP ####[facility] Ilqvuqbyxb7452 [place] [address]Dr. Airam Tripathi Urea nitrogen [Mass/Vol] 43.0 mg/dL Critically high 7.0-18.0 [facility] Comment on above: Performed By: #### C MP ####[facility] Zqahaeopxy198[address] [place], [place] [address]Dr. Airam Deuce Urea nitrogen/Creatinine [Mass ratio] 26.7 mg/mg Normal [facility] Comment on above: Performed By: #### C MP ####[facility] Wnleskbgvu0368[address] [place], [place] [address]Dr. Airam Deuce CBC AUTO DIFFon 10-06-2022 BASO # 0.0 103/ul Normal 0.0-0.1 [facility] Comment on above: Performed By: #### C BC ####[facility] Wblcxivyuy6427[address] [place], [place] [address]Dr. Selenaneil Tripathi Basophils/100 WBC (Bld) 0.3 % Normal 0.2-2.0 [facility] Comment on above: Performed By: #### C BC ####[facility] Jipugqacqj060[address] [place], [place] [address]Dr. Airam Deuce EO # 0.2 103/ul Normal 0.0-0.7 [facility] Comment on above: Performed By: #### C BC ####[facility] Njpymtreib5179[address] [place], [place] [address]Dr. Selenaneil Tripathi Eosinophils/100 WBC (Bld) 3.1 % Normal 0.9-7.0 [facility] Comment on above: Performed By: #### C BC ####[facility] Hbwokbospw0808[address] [place], [place] [address]Dr. Airam Tripathi Erythrocyte distribution width (RBC) [Ratio] 15.0 % Normal 11.0-15.0 [facility] Comment on above: Performed By: #### C BC ####[facility] Kmeycakwsa2847[address] [place], [place] [address]Dr. Airam Tripathi Hematocrit (Bld) [Volume fraction] 30.9 % Critically low 36.0-48.0 [facility] Comment on above: Performed By: #### C BC ####[facility] Vnmlunjbjz6852 [place] [address]Dr. Airam Tripathi Hemoglobin (Bld) [Mass/Vol] 10.1 g/dL Critically low 12.0-16.0 [facility] Comment on above: Result Comment: BIJU ENT RECIEVED 2 UNITS PRBC'S Performed By: #### C BC ####[facility] Njsnhektqw1612[address] [place], [place] [address]Dr. Airam Tripathi IG # 0.03 10e3/ul Normal 0.00-0.03 [facility] Comment on above: Performed By: #### C BC ####[facility] Unnzxnijgd325[address] [place], [place] [address]Dr. Airam Tripathi IG % 0.4 % Normal 0.0-0.5 [facility] Comment on above: Performed By: #### C BC ####[facility] Zkilzpkuwv9156[address] [place], [place] [address]DrKianna Tripathi LYMPH # 1.1 103/ul Critically low 1.2-3.8 [facility] Comment on above: Performed By: #### C BC ####[facility] Koqnjgadgj3157[address] [place], [place] [address]DrKianna Tripathi Lymphocytes/100 WBC (Bld) 14.4 % Critically low 20.5-60.0 [facility] Comment on above: Performed By: #### C BC ####[facility] Oimuuxcckj5350[address] [place], [place] [address]DrKianna Tripathi MANUAL DIFF REQ NO Normal [facility] Comment on above: Performed By: #### C BC ####[facility] Lbyzmbmrob8467[address] [place], [place] [address]DrKianna Tripathi MCH (RBC) [Entitic mass] 28.9 pg Normal 26.7-34.0 [facility] Comment on above: Performed By: #### C BC ####[facility] Kaptcefrij6376[address] [place], [place] [address]Dr. Airam Tripathi MCHC (RBC) [Mass/Vol] 32.7 g/dL Normal 29.9-35.2 [facility] Comment on above: Performed By: #### C BC ####[facility] Hkpgixxdjh0537 [place] [address]DrKianna Tripathi MCV (RBC) [Entitic vol] 88.3 fL Normal 81.0-99.0 [facility] Comment on above: Performed By: #### C BC ####[facility] Wjmuhgqpou8746[address] [place], [place] [address]DrKianna Tripathi MONO # 0.6 103/ul Normal 0.3-0.8 [facility] Comment on above: Performed By: #### C BC ####[facility] Qlboufjqnk9349[address] [place], [place] [address]DrKianna Tripathi Monocytes/100 WBC (Bld) 7.8 % Normal 1.7-12.0 [facility] Comment on above: Performed By: #### C BC ####[facility] Hruuaplmkr5489[address] [place], [place] [address]DrKianna Tripathi NEUT # 5.5 103/ul Normal 1.4-6.5 [facility] Comment on above: Performed By: #### C BC ####[facility] Jcilyqgsup325[address] [place], [place] [address]DrKianna Tripathi Neutrophils/100 WBC (Bld) 74.0 % Normal 43.0-75.0 [facility] Comment on above: Performed By: #### C BC ####[facility] Aebrmjgqax2819[address] [place], [place] [address]DrKianna Tripathi Platelet mean volume (Bld) [Entitic vol] 9.2 fL Critically low 9.5-13.5 [facility] Comment on above: Performed By: #### C BC ####[facility] Tczzavcyib33[address] [place], [place] [address]DrKianna Tripathi PLT 275 103/ul Normal 150-450 [facility] Comment on above: Performed By: #### C BC ####[facility] Iizjftglqf033[address] [place], [place] [address]DrKianna Tripathi RBC 3.50 106/ul Critically low 4.20-5.40 [facility] Comment on above: Performed By: #### C BC ####[facility] Epxlxmsgmi4672 [place] [address]Dr. Airam Tripathi WBC 7.4 103/ul Normal 4.0-11.0 [facility] Comment on above: Performed By: #### C BC ####[facility] Cvbezakgbe4610[address] [place], [place] [address]Dr. Airam Tripathi BASO # 0.0 103/ul Normal 0.0-0.1 [facility] Comment on above: Performed By: #### C BC ####[facility] Zdjzuetpvs8836[address] [place], [place] [address]Dr. Airam Deuce Basophils/100 WBC (Bld) 0.4 % Normal 0.2-2.0 [facility] Comment on above: Performed By: #### C BC ####[facility] Mzkcjwrloe700[address] [place], [place] [address]Dr. Airam Tripathi EO # 0.2 103/ul Normal 0.0-0.7 [facility] Comment on above: Performed By: #### C BC ####[facility] Lheoitagso0706[address] [place], [place] [address]Dr. Airam Tripathi Eosinophils/100 WBC (Bld) 4.5 % Normal 0.9-7.0 [facility] Comment on above: Performed By: #### C BC ####[facility] Dkwadrjpdz094[address] [place], [place] [address]Dr. Airam Tripathi Erythrocyte distribution width (RBC) [Ratio] 15.1 % Critically high 11.0-15.0 [facility] Comment on above: Performed By: #### C BC ####[facility] Oovnvffzqi4067[address] [place], [place] [address]Dr. Airam Tripathi Hematocrit (Bld) [Volume fraction] 23.0 % Critically low 36.0-48.0 [facility] Comment on above: Performed By: #### C BC ####[facility] Dxcsgpitvv[address] [place], [place] [address]Dr. Airam Deuce Hemoglobin (Bld) [Mass/Vol] 7.2 g/dL Critically low 12.0-16.0 [facility] Comment on above: Performed By: #### C BC ####[facility] [address] [place] [address]Dr. Selenaneil Tripathi IG # 0.02 10e3/ul Normal 0.00-0.03 [facility] Comment on above: Performed By: #### C BC ####[facility] Gelq[address]ulyt[address] [place] [address]Dr. Airam Tripathi IG % 0.4 % Normal 0.0-0.5 [facility] Comment on above: Performed By: #### C BC ####[facility] Uafnxvktug[address] [place], [place] [address]DrKianna Tripathi LYMPH # 1.0 103/ul Critically low 1.2-3.8 [facility] Comment on above: Performed By: #### C BC ####[facility] Rzifjrilek448[address] [place], [place] [address]Dr. Airam Tripathi Lymphocytes/100 WBC (Bld) 22.5 % Normal 20.5-60.0 [facility] Comment on above: Performed By: #### C BC ####[facility] Awnuqcoqfc[address] [place], [place] [address]DrKianna Selenaneil Tripathi MANUAL DIFF REQ NO Normal [facility] Comment on above: Performed By: #### C BC ####[facility] Netmgvrawr8260[address] [place], [place] [address]DrKianna Tripathi MCH (RBC) [Entitic mass] 28.3 pg Normal 26.7-34.0 [facility] Comment on above: Performed By: #### C BC ####[facility] Wtawofpgjk0039[address] [place], [place] [address]DrKianna Tripathi MCHC (RBC) [Mass/Vol] 31.3 g/dL Normal 29.9-35.2 [facility] Comment on above: Performed By: #### C BC ####[facility] Ordxwaimrz[address] [place], [place] [address]DrKianna Tripathi MCV (RBC) [Entitic vol] 90.6 fL Normal 81.0-99.0 [facility] Comment on above: Performed By: #### C BC ####[facility] [address] [place] [address] Airma Tripathi MONO # 0.5 103/ul Normal 0.3-0.8 [facility] Comment on above: Performed By: #### C BC ####[facility] Rtqguzxrfj[address] [place] [address]DrKianna Tripathi Monocytes/100 WBC (Bld) 9.7 % Normal 1.7-12.0 [facility] Comment on above: Performed By: #### C BC ####[facility] Egcjwkxchf5764[address] [place], [place] [address]DrKianna Airam Tripathi NEUT # 2.9 103/ul Normal 1.4-6.5 [facility] Comment on above: Performed By: #### C BC ####[facility] Bwpzvprsfp6[address] [place], [place] [address]DrKianna Tripathi Neutrophils/100 WBC (Bld) 62.5 % Normal 43.0-75.0 [facility] Comment on above: Performed By: #### C BC ####[facility] Zgyfiaezrn71[address] [place], [place] [address]DrKianna Selenaneil Tripathi Platelet mean volume (Bld) [Entitic vol] 8.9 fL Critically low 9.5-13.5 [facility] Comment on above: Performed By: #### C BC ####[facility] Onynxttypj8539[address] [place], [place] [address]Dr. Airam Tripathi PLT 210 103/ul Normal 150-450 [facility] Comment on above: Performed By: #### C BC ####[facility] Hjevjvfutj4[address] [place], [place] [address]DrKianna Tripathi RBC 2.54 106/ul Critically low 4.20-5.40 [facility] Comment on above: Performed By: #### C BC ####[facility] Oeojarnsgz8846[address] [place], [place] [address]DrKianna Tripathi WBC 4.6 103/ul Normal 4.0-11.0 [facility] Comment on above: Performed By: #### C BC ####[facility] [address] [place] [address]Dr. Airam Tripathi OSMOLALITYon 10-06-2022 Osmolality [Osmolality] 279 mosm/kg Normal 275-295 [facility] Comment on above: Performed By: #### O SMO ####[facility] Scpgumznoi525[address] [place], [place] [address]Dr. Airam Tripathi POINT OF CARE GLUCOSEon 09-24 Glucose [Mass/Vol] 72 mg/dL Critically low 74-106 [facility] Comment on above: Performed By: #### P OCGLUC ####[facility] Dleznevmlr0727[address] [place], [place] [address]Dr. Airam Tripathi Glucose [Mass/Vol] 102 mg/dL Normal 74-106 [facility] Comment on above: Performed By: #### P OCGLUC ####[facility] Ibpbdwidoq2256[address] [place], [place] [address]Dr. Airam Tripathi Glucose [Mass/Vol] 165 mg/dL Critically high 74-106 [facility] Comment on above: Performed By: #### P OCGLUC ####[facility] Fyumvnvlez2449[address] [place], [place] [address]DrKianna Tripathi PROF 14(COMP METB)on 023 Albumin [Mass/Vol] 2.6 g/dL Critically low 3.4-5.0 [facility] Comment on above: Performed By: #### C MP ####[facility] [address]zrtaebjx[address] [place] [address]Dr. Airam Tripathi Albumin/Globulin [Mass ratio] 0.9 {ratio} Normal [facility] Comment on above: Performed By: #### C MP ####[facility] Noefwmkdii0985[address] [place], [place] [address]Dr. Airam Tripathi ALP [Catalytic activity/Vol] 107 U/L Normal 46-116 [facility] Comment on above: Performed By: #### C MP ####[facility] Arspoddymo5314[address] [place], [place] [address]Dr. Airam Tripathi ALT [Catalytic activity/Vol] 22 U/L Normal 14-59 [facility] Comment on above: Performed By: #### C MP ####[facility] [address]ugcjrk[address] [place] [address]Dr. Selenaneil Deuce Anion gap [Moles/Vol] 10.0 mmol/L Normal [facility] Comment on above: Performed By: #### C MP ####[facility] Ckolbllndk9332[address] [place], [place] [address]Dr. Airam Tripathi AST [Catalytic activity/Vol] 19 U/L Normal 15-37 [facility] Comment on above: Performed By: #### C MP ####[facility] Cavouolftn[address] [place], [place] [address]Dr. Airam Tripathi Bilirubin [Mass/Vol] 0.2 mg/dL Normal 0.2-1.0 [facility] Comment on above: Performed By: #### C MP ####[facility] Ldynwaythe1335[address] [place], [place] [address]Dr. Airam Tripathi Calcium [Mass/Vol] 8.1 mg/dL Critically low 8.5-10.1 [facility] Comment on above: Performed By: #### C MP ####[facility] Dnuwjcogag3430[address] [place], [place] [address]Dr. Airam Tripathi Chloride [Moles/Vol] 100 mmol/L Normal 98-107 [facility] Comment on above: Performed By: #### C MP ####[facility] Bijdihnsjp7517[address] [place], [place] [address]Dr. Airam Tripathi CO2 [Moles/Vol] 26.2 mmol/L Normal 21.0-32.0 [facility] Comment on above: Performed By: #### C MP ####[facility] Grzrlbzbgv696[address] [place], [place] [address]Dr. Airam Tripathi Creatinine [Mass/Vol] 1.90 mg/dL Critically high 0.55-1.02 [facility] Comment on above: Performed By: #### C MP ####[facility] Yjlpmzgzlu685[address] [place], [place] [address]Dr. Airam Tripathi EGFR-AF [place] 33 mL/min/1.73m2 Critically low >=60 [facility] Comment on above: Performed By: #### C MP ####[facility] [address]xxt[address] [place] [address]Dr. Airam Deuce EGFR-NON AF [place] 27 mL/min/1.73m2 Critically low >=60 [facility] Comment on above: Performed By: #### C MP ####[facility] Wogjkdlvpg6109[address] [place], [place] [address]Dr. Airam Deuce Globulin (S) [Mass/Vol] 2.8 g/dL Normal [facility] Comment on above: Performed By: #### C MP ####[facility] Yaqbiirxzd5912[address] [place], [place] [address]Dr. Selenaneil Deuce Glucose [Mass/Vol] 115 mg/dL Critically high 74-106 [facility] Comment on above: Performed By: #### C MP ####[facility] Uetvjnoklg5704[address] [place], [place] [address]Dr. Airam Tripathi Potassium [Moles/Vol] 5.2 mmol/L Critically high 3.5-5.1 [facility] Comment on above: Performed By: #### C MP ####[facility] Veqtrsayej5560[address] [place], [place] [address]Dr. Selenaneil Deuce Protein [Mass/Vol] 5.4 g/dL Critically low 6.4-8.2 [facility] Comment on above: Performed By: #### C MP ####[facility] Qnmqhwmohu7555[address] [place], [place] [address]Dr. Airam Deuce Sodium [Moles/Vol] 131 mmol/L Critically low 136-145 [facility] Comment on above: Performed By: #### C MP ####[facility] Ndwnhyywfo1560[address] [place], [place] [address]Dr. Airam Tripathi Urea nitrogen [Mass/Vol] 41.0 mg/dL Critically high 7.0-18.0 [facility] Comment on above: Performed By: #### C MP ####[facility] Vlskooegii1096[address] [place], [place] [address]Dr. Airam Tripathi Urea nitrogen/Creatinine [Mass ratio] 21.6 mg/mg Normal [facility] Comment on above: Performed By: #### C MP ####[facility] Lgzcqnovei9566[address] [place], [place] [address]Dr. Airam Tripathi TYPE AND SCREENon 10-06-2022 TYPE AND SCREEN Negative Normal [facility] Comment on above: Performed By: #### T NS ####[facility] Zfidtbrgps3[address] [place], [place] [address]Dr. Airam Tripathi CBC AUTO DIFFon 10-05-2022 BASO # 0.0 103/ul Normal 0.0-0.1 [facility] Comment on above: Performed By: #### C BC ####[facility] Jmlbdvzxsp666[address] [place], [place] [address]Dr. Airam Tripathi Basophils/100 WBC (Bld) 0.5 % Normal 0.2-2.0 [facility] Comment on above: Performed By: #### C BC ####[facility] Unposxdjhs9479[address] [place], [place] [address]Dr. Airam Tripathi EO # 0.2 103/ul Normal 0.0-0.7 [facility] Comment on above: Performed By: #### C BC ####[facility] Dmifnjfhsj5276[address] [place], [place] [address]Dr. Airam Tripathi Eosinophils/100 WBC (Bld) 3.2 % Normal 0.9-7.0 [facility] Comment on above: Performed By: #### C BC ####[facility] Fyzaocthfr0314[address] [place], [place] [address]Dr. Airam Tripathi Erythrocyte distribution width (RBC) [Ratio] 15.2 % Critically high 11.0-15.0 [facility] Comment on above: Performed By: #### C BC ####[facility] Sewkxlvvwk6805[address] [place], [place] [address]Dr. Airam Tripathi Hematocrit (Bld) [Volume fraction] 24.7 % Critically low 36.0-48.0 [facility] Comment on above: Performed By: #### C BC ####[facility] [address]xerbbe[address] [place] [address]Dr. Airam Tripathi Hemoglobin (Bld) [Mass/Vol] 7.6 g/dL Critically low 12.0-16.0 [facility] Comment on above: Performed By: #### C BC ####[facility] [address]xss[address] [place] [address]Dr. Airam Tripathi IG # 0.02 10e3/ul Normal 0.00-0.03 [facility] Comment on above: Performed By: #### C BC ####[facility] Hprnzghqgf[address] [place] [address]Dr. Airam Tripathi IG % 0.3 % Normal 0.0-0.5 [facility] Comment on above: Performed By: #### C BC ####[facility] By[address]auzkjv[address] [place] [address]Dr. Airam Deuce LYMPH # 1.1 103/ul Critically low 1.2-3.8 [facility] Comment on above: Performed By: #### C BC ####[facility] G[address]kvopu[address] [place] [address]Dr. Airam Deuce Lymphocytes/100 WBC (Bld) 18.4 % Critically low 20.5-60.0 [facility] Comment on above: Performed By: #### C BC ####[facility] Mwkdrfbtya3156[address] [place], [place] [address]Dr. Airam Tripathi MANUAL DIFF REQ NO Normal [facility] Comment on above: Performed By: #### C BC ####[facility] [address]xsrq[address] [place] [address]Dr. Airam Tripathi MCH (RBC) [Entitic mass] 28.5 pg Normal 26.7-34.0 [facility] Comment on above: Performed By: #### C BC ####[facility] Xqkyccbhoj67[address] [place], [place] [address]Dr. Airam Deuce MCHC (RBC) [Mass/Vol] 30.8 g/dL Normal 29.9-35.2 [facility] Comment on above: Performed By: #### C BC ####[facility] Miptluiqmi7375[address] [place], [place] [address]Dr. Airam Deuce MCV (RBC) [Entitic vol] 92.5 fL Normal 81.0-99.0 [facility] Comment on above: Performed By: #### C BC ####[facility] Kzbyovrqac[address] [place] [address]Dr. Airam Tripathi MONO # 0.6 103/ul Normal 0.3-0.8 [facility] Comment on above: Performed By: #### C BC ####[facility] Rujrrfkcms97[address] [place], [place] [address]Dr. Airam Deuce Monocytes/100 WBC (Bld) 10.0 % Normal 1.7-12.0 [facility] Comment on above: Performed By: #### C BC ####[facility] Bsydqryzxl8620[address] [place], [place] [address]Dr. Airam Deuce NEUT # 4.0 103/ul Normal 1.4-6.5 [facility] Comment on above: Performed By: #### C BC ####[facility] Apaxioolpg045[address] [place], [place] [address]Dr. Selenaneil Tripathi Neutrophils/100 WBC (Bld) 67.6 % Normal 43.0-75.0 [facility] Comment on above: Performed By: #### C BC ####[facility] Zqeysqiubr[address] [place], [place] [address]Dr. Airam Deuce Platelet mean volume (Bld) [Entitic vol] 8.8 fL Critically low 9.5-13.5 [facility] Comment on above: Performed By: #### C BC ####[facility] Fxbqwnayry3[address] [place], [place] [address]Dr. Airam Deuce PLT 226 103/ul Normal 150-450 [facility] Comment on above: Performed By: #### C BC ####[facility] Jzlqywtfbz[address] [place], [place] [address]Dr. Selenaneil Deuce RBC 2.67 106/ul Critically low 4.20-5.40 [facility] Comment on above: Performed By: #### C BC ####[facility] Qewkrbvfby6035[address] [place], [place] [address]Dr. Airam Tripathi WBC 5.9 103/ul Normal 4.0-11.0 [facility] Comment on above: Performed By: #### C BC ####[facility] [address] [place] [address]Dr. Airam Tripathi Covid-19 PCR (CVDTB)on 09-24 SARS-CoV-2 (COVID-19) RNA MIKE+probe Ql (Unsp spec) Not detected Normal NOT DETECTED [facility] Comment on above: Result Comment: [...] for this test is supported by the [employer] Animal [employer] of Health and Human Service's declaration that [...] be used). Performed By: #### C VDTBH ####[facility] [address] [place] [address]Dr. Airam Tripathi MAGNESIUMon 10-05-2022 Magnesium [Mass/Vol] 1.7 mg/dL Critically low 1.8-2.4 [facility] Comment on above: Performed By: #### M G, CMP ####[facility] Y[address]frotcff[address] [place] [address]DrKianna Airam Deuce POINT OF CARE GLUCOSEon 09-24 Glucose [Mass/Vol] 92 mg/dL Normal 74-106 [facility] Comment on above: Performed By: #### P OCGLUC ####[facility] [address]uqyhzsr264[address] [place] [address]DrKianna Airam Deuce PROF 14(COMP METB)on 023 Albumin [Mass/Vol] 2.9 g/dL Critically low 3.4-5.0 [facility] Comment on above: Performed By: #### Nadya Calderon, CMP ####[facility] Ux[address]ugy[address] [place] [address]Dr. Airam Tripathi Albumin/Globulin [Mass ratio] 0.9 {ratio} Normal [facility] Comment on above: Performed By: #### Nadya Calderon, CMP ####[facility] Dmogvzqkwk[address] [place] [address]Dr. Airam Tripathi ALP [Catalytic activity/Vol] 122 U/L Critically high 46-116 [facility] Comment on above: Performed By: #### Nadya Calderon, CMP ####[facility] Bcbyypuyrr5334[address] [place], [place] [address]Dr. Airam Tripathi ALT [Catalytic activity/Vol] 24 U/L Normal 14-59 [facility] Comment on above: Performed By: #### Nadya Calderon, CMP ####[facility] Fxzfpdldef3264[address] [place], [place] [address]Dr. Airam Tripathi Anion gap [Moles/Vol] 13.1 mmol/L Normal [facility] Comment on above: Performed By: #### Nadya Calderon, CMP ####[facility] Qbmlwgofpp7413[address] [place], [place] [address]Dr. Airam Tripathi AST [Catalytic activity/Vol] 21 U/L Normal 15-37 [facility] Comment on above: Performed By: #### Nadya Calderon, CMP ####[facility] Gsgukkhlba8[address] [place], [place] [address]Dr. Airam Tripathi Bilirubin [Mass/Vol] 0.2 mg/dL Normal 0.2-1.0 [facility] Comment on above: Performed By: #### Nadya Calderon, CMP ####[facility] Kkwechddjj5674[address] [place], [place] [address]Dr. Airam Tripathi Calcium [Mass/Vol] 8.4 mg/dL Critically low 8.5-10.1 [facility] Comment on above: Performed By: #### Nadya Calderon, CMP ####[facility] Mymqgdsunh21[address] [place], [place] [address]Dr. Airam Tripathi Chloride [Moles/Vol] 102 mmol/L Normal 98-107 [facility] Comment on above: Performed By: #### Nadya Calderon, CMP ####[facility] Gsdrxvwzii4204[address] [place], [place] [address]Dr. Airam Tripathi CO2 [Moles/Vol] 23.2 mmol/L Normal 21.0-32.0 [facility] Comment on above: Performed By: #### Nadya Calderon, CMP ####[facility] Lbkcniygjf355[address] [place], [place] [address]Dr. Airam Tripathi Creatinine [Mass/Vol] 1.96 mg/dL Critically high 0.55-1.02 [facility] Comment on above: Performed By: #### Nadya Calderon, CMP ####[facility] Jjyryswupa3[address] [place], [place] [address]Dr. Airam Tripathi EGFR-AF [place] 32 mL/min/1.73m2 Critically low >=60 [facility] Comment on above: Performed By: #### Nadya Calderon, CMP ####[facility] Ulxupdxeqc[address] [place], [place] [address]Dr. Airam Tripathi EGFR-NON AF [place] 26 mL/min/1.73m2 Critically low >=60 [facility] Comment on above: Performed By: #### aNdya Calderon, CMP ####[facility] Qezjkrdqdb0345[address] [place], [place] [address]Dr. Airam Tripathi Globulin (S) [Mass/Vol] 3.2 g/dL Normal [facility] Comment on above: Performed By: #### M Yumiko, CMP ####[facility] Eowroawuhe038[address] [place], [place] [address]Dr. Airam Tripathi Glucose [Mass/Vol] 68 mg/dL Critically low 74-106 [facility] Comment on above: Performed By: #### Nadya Calderon, CMP ####[facility] Hzrpqxscrb8338[address] [place], [place] [address]Dr. Airam Tripathi Potassium [Moles/Vol] 5.3 mmol/L Critically high 3.5-5.1 [facility] Comment on above: Performed By: #### M Yumiko, CMP ####[facility] Yddlvgblts8164[address] [place], [place] [address]Dr. Airam Tripathi Protein [Mass/Vol] 6.1 g/dL Critically low 6.4-8.2 [facility] Comment on above: Performed By: #### M G, CMP ####[facility] Rreckccmwn2834[address] [place], [place] [address]Dr. Airam Tripathi Sodium [Moles/Vol] 133 mmol/L Critically low 136-145 [facility] Comment on above: Performed By: #### M G, CMP ####[facility] Pnhrjxptlq[address] [place], [place] [address]Dr. Airam Tripathi Urea nitrogen [Mass/Vol] 39.0 mg/dL Critically high 7.0-18.0 [facility] Comment on above: Performed By: #### M Yumiko, CMP ####[facility] Mogduliyoa9[address] [place], [place] [address]Dr. Airam Tripathi Urea nitrogen/Creatinine [Mass ratio] 19.9 mg/mg Normal [facility] Comment on above: Performed By: #### M G, CMP ####[facility] Zgvrjotyjp197[address] [place], [place] [address]Dr. Airam Tripathi SODIUM RANDOM URINEon 2022 Sodium (U) [Moles/Vol] 37 mmol/L Normal 30-90 [facility] Comment on above: Performed By: #### N AU ####[facility] Tketlfqmfm7059[address] [place], [place] [address]Dr. Airam Tripathi UA RANDOM W/MICROSCOPICon BACTERIA TRACE Abnormal NONE SEEN [facility] Comment on above: Performed By: #### U AMIC ####[facility] Nxvkpzfiqu6958[address] [place], [place] [address]Dr. Airam Tripathi Bilirubin Ql (U) Negative Normal NEGATIVE [facility] Comment on above: Performed By: #### U AMIC ####[facility] Jbgjpnygpm3054[address] [place], [place] [address]Dr. Airam Tripathi CAST SEEN Abnormal NONE SEEN [facility] Comment on above: Performed By: #### U AMIC ####[facility] [address]vyl[address] [place] [address]Dr. Airam Tripathi Clarity (U) CLEAR Normal CLEAR [facility] Comment on above: Performed By: #### U AMIC ####[facility] [address]ub[address] [place] [address]Dr. Airma Tripathi Color (U) YELLOW Normal YELLOW [facility] Comment on above: Performed By: #### U AMIC ####[facility] Y[address]jszqwvdy8[address] [place], [place] [address]Dr. Airam Tripathi Crystals LM Nom (Urine sed) NONE SEEN Normal NONE SEEN [facility] Comment on above: Performed By: #### U AMIC ####[facility] Jivswibiud[address]022[address] [place], [place] [address]Dr. Airam Tripathi Epithelial cells LM Ql (Urine sed) RARE Normal NONE SEEN /RARE [facility] Comment on above: Performed By: #### U AMIC ####[facility] Mrydhuzivw617[address] [place], [place] [address]Dr. Airam Tripathi Glucose Ql (U) Negative Normal NEGATIVE [facility] Comment on above: Performed By: #### U AMIC ####[facility] Gqjrujuhtq4[address] [place], [place] [address]Dr. Airam Tripathi Hemoglobin Ql (U) Negative Normal NEGATIVE [facility] Comment on above: Performed By: #### U AMIC ####[facility] Zuttyzzcvh[address] [place], [place] [address]Dr. Airam Tripathi HYALINE CAST RARE Normal [facility] Comment on above: Performed By: #### U AMIC ####[facility] Exhqhulzzp7[address] [place], [place] [address]Dr. Airam Tripathi Ketones Ql (U) TRACE Abnormal NEGATIVE [facility] Comment on above: Performed By: #### U AMIC ####[facility] Agmfxfqgzt5184[address] [place], [place] [address]Dr. Airam Tripathi LEUKOCYTES Negative Normal NEGATIVE [facility] Comment on above: Performed By: #### U AMIC ####[facility] Wfgoveolbq5627[address] [place], [place] [address]Dr. Airam Tripathi MUCOUS NONE SEEN Normal NONE SEEN [facility] Comment on above: Performed By: #### U AMIC ####[facility] [address]izsqin[address] [place] [address]Dr. Airam Tripathi Nitrite Ql (U) Negative Normal NEGATIVE [facility] Comment on above: Performed By: #### U AMIC ####[facility] Feqf[address]bezq[address] [place] [address]Dr. Airam Tripathi pH (U) 5.0 [pH] Normal 5-9 [facility] Comment on above: Performed By: #### U AMIC ####[facility] Mwjjebaapy[address] [place], [place] [address]Dr. Airam Tripathi RBC 0-2 Normal 0-2 [facility] Comment on above: Performed By: #### U AMIC ####[facility] Sxciljlzaz[address] [place], [place] [address]Dr. Airam Tripathi SPEC GRAVITY 1.015 Normal 1.005-<=1. 025 [facility] Comment on above: Performed By: #### U AMIC ####[facility] [address]pmdikvwza[address] [place], [place] [address]Dr. Airam Tripathi UA PROTEIN Negative Normal NEGATIVE/ TRACE [facility] Comment on above: Performed By: #### U AMIC ####[facility] [address]wxq[address] [place] [address]Dr. Airam Tripathi Urobilinogen Qn (U) 0.2 {Ligia'U}/dL Normal 0.2 - 1. 0 [facility] Comment on above: Performed By: #### U AMIC ####[facility] [address]wtpqwmm[address] [place], [place] [address]Dr. Airam Tripathi WBC NONE SEEN Normal NONE SEEN [facility] Comment on above: Performed By: #### U AMIC ####[facility] [address] [place] [address]Dr. Airam Tripathi CBC AUTO DIFFon 10-04-2022 BASO # 0.0 103/ul Normal 0.0-0.1 [facility] Comment on above: Performed By: #### C BC ####[facility] Osjruhkodf[address] [place] [phone]. Airam Tripathi Basophils/100 WBC (Bld) 0.3 % Normal 0.2-2.0 [facility] Comment on above: Performed By: #### C BC ####[facility] Vhfujdsmue[address] [place], [place] [address]Dr. Airam Tripathi EO # 0.2 103/ul Normal 0.0-0.7 [facility] Comment on above: Performed By: #### C BC ####[facility] Hgxjjdvsda[address] [place], [place] [address]Dr. Airam Tripathi Eosinophils/100 WBC (Bld) 3.2 % Normal 0.9-7.0 [facility] Comment on above: Performed By: #### C BC ####[facility] Mmstakooag[address] [place], [place] [address]Dr. Airam Tripathi Erythrocyte distribution width (RBC) [Ratio] 15.1 % Critically high 11.0-15.0 [facility] Comment on above: Performed By: #### C BC ####[facility] Wjhozvmbua[address] [place], [place] [address]Dr. Airam Tripathi Hematocrit (Bld) [Volume fraction] 27.6 % Critically low 36.0-48.0 [facility] Comment on above: Performed By: #### C BC ####[facility] Bblofbsnah656[address] [place], [place] [address]Dr. Airam Tripathi Hemoglobin (Bld) [Mass/Vol] 8.7 g/dL Critically low 12.0-16.0 [facility] Comment on above: Performed By: #### C BC ####[facility] Itwtwvklch[address] [place], [place] [address]Dr. Airam Tripathi IG # 0.03 10e3/ul Normal 0.00-0.03 [facility] Comment on above: Performed By: #### C BC ####[facility] Sbkxvcisot76[address] [place], [place] [address]Dr. Airam Tripathi IG % 0.4 % Normal 0.0-0.5 [facility] Comment on above: Performed By: #### C BC ####[facility] Qkkgrxugtm1402 [place] [phone]. Airam Deuce LYMPH # 1.2 103/ul Normal 1.2-3.8 [facility] Comment on above: Performed By: #### C BC ####[facility] Lhzykwbnac2149 [place] [phone]. Airam Tripathi Lymphocytes/100 WBC (Bld) 16.4 % Critically low 20.5-60.0 [facility] Comment on above: Performed By: #### C BC ####[facility] Whtvvlwaeu[address] [place] [address]Dr. Airam Tripathi MANUAL DIFF REQ NO Normal [facility] Comment on above: Performed By: #### C BC ####[facility] Dpgmxerxft27[address] [place], [place] [address]Dr. Airam Tripathi MCH (RBC) [Entitic mass] 28.5 pg Normal 26.7-34.0 [facility] Comment on above: Performed By: #### C BC ####[facility] Fwqsjzmvru8[address] [place], [place] [address]Dr. Selenaneil Tripathi MCHC (RBC) [Mass/Vol] 31.5 g/dL Normal 29.9-35.2 [facility] Comment on above: Performed By: #### C BC ####[facility] Uobqipxnyb13[address] [place], [place] [address]Dr. Airam Tripathi MCV (RBC) [Entitic vol] 90.5 fL Normal 81.0-99.0 [facility] Comment on above: Performed By: #### C BC ####[facility] Jdwedbzcar608[address] [place], [place] [address]Dr. Airam Tripathi MONO # 0.5 103/ul Normal 0.3-0.8 [facility] Comment on above: Performed By: #### C BC ####[facility] Ewwrmymyjb25[address] [place] [phone]. Airam Tripathi Monocytes/100 WBC (Bld) 7.3 % Normal 1.7-12.0 [facility] Comment on above: Performed By: #### C BC ####[facility] Dklarveoal6103 [place] [phone]. Airam Tripathi NEUT # 5.4 103/ul Normal 1.4-6.5 [facility] Comment on above: Performed By: #### C BC ####[facility] Oazwufmxuf8182 [place] [phone]. Airam Tripathi Neutrophils/100 WBC (Bld) 72.4 % Normal 43.0-75.0 [facility] Comment on above: Performed By: #### C BC ####[facility] Ozaisxuiax[address] [place] [address]Dr. Airam Tripathi Platelet mean volume (Bld) [Entitic vol] 9.1 fL Critically low 9.5-13.5 [facility] Comment on above: Performed By: #### C BC ####[facility] Bdqkrbuwua79[address] [place] [address]Dr. Airam Tripathi PLT 304 103/ul Normal 150-450 [facility] Comment on above: Performed By: #### C BC ####[facility] Xwaninmcmd3[address] [place] [address]Dr. Airam Tripathi RBC 3.05 106/ul Critically low 4.20-5.40 [facility] Comment on above: Performed By: #### C BC ####[facility] Nflswvgewb[address] [place] [address]Dr. Airam Tripathi WBC 7.4 103/ul Normal 4.0-11.0 [facility] Comment on above: Performed By: #### C BC ####[facility] Qnpaceyues6258 [place] [address]Dr. Airam Tripathi PROF 14(COMP METB)on 023 Albumin [Mass/Vol] 3.3 g/dL Critically low 3.4-5.0 [facility] Comment on above: Performed By: #### C MP ####[facility] Jaofmbzril[address] [place] [address]Dr. Airam Tripathi Albumin/Globulin [Mass ratio] 0.9 {ratio} Normal [facility] Comment on above: Performed By: #### C MP ####[facility] Ylrtccpdsh27[address] [place] [address]Dr. Airam Tripathi ALP [Catalytic activity/Vol] 127 U/L Critically high 46-116 [facility] Comment on above: Performed By: #### C MP ####[facility] Fhxmhelagn16[address] [place] [address]Dr. Airam Tripathi ALT [Catalytic activity/Vol] 29 U/L Normal 14-59 [facility] Comment on above: Performed By: #### C MP ####[facility] Hlhottsmiv[address] [place], [place] [address]Dr. Airam Tripathi Anion gap [Moles/Vol] 14.6 mmol/L Normal [facility] Comment on above: Performed By: #### C MP ####[facility] Oafioybtcr0[address] [place], [place] [address]Dr. Airam Tripathi AST [Catalytic activity/Vol] 28 U/L Normal 15-37 [facility] Comment on above: Performed By: #### C MP ####[facility] Tjcrosihlf1332[address] [place], [place] [address]Dr. Airam Tripathi Bilirubin [Mass/Vol] 0.3 mg/dL Normal 0.2-1.0 [facility] Comment on above: Performed By: #### C MP ####[facility] Rcczznbrgg01[address] [place], [place] [address]Dr. Airam Tripathi Calcium [Mass/Vol] 8.9 mg/dL Normal 8.5-10.1 [facility] Comment on above: Performed By: #### C MP ####[facility] Uxmghidswx7239[address] [place], [place] [address]Dr. Airam Tripathi Chloride [Moles/Vol] 99 mmol/L Normal 98-107 [facility] Comment on above: Performed By: #### C MP ####[facility] Mkckpxjvff43[address] [place], [place] [address]Dr. Airam Tripathi CO2 [Moles/Vol] 25.1 mmol/L Normal 21.0-32.0 [facility] Comment on above: Performed By: #### C MP ####[facility] Firpwheaqq1335 [place] [phone]. Airam Tripathi Creatinine [Mass/Vol] 1.42 mg/dL Critically high 0.55-1.02 [facility] Comment on above: Performed By: #### C MP ####[facility] Wiscrciter3180 [place] [phone]. Airam Tripathi EGFR-AF [place] 46 mL/min/1.73m2 Critically low >=60 [facility] Comment on above: Performed By: #### C MP ####[facility] Eixriuhfjm33[address] [place] [phone]. Airam Tripathi EGFR-NON AF [place] 38 mL/min/1.73m2 Critically low >=60 [facility] Comment on above: Performed By: #### C MP ####[facility] Mxssnoslac33[address] [place] [address]Dr. Airam Tripathi Globulin (S) [Mass/Vol] 3.6 g/dL Normal [facility] Comment on above: Performed By: #### C MP ####[facility] Bijqdocpiq7[address] [place] [address]Dr. Airam Tripathi Glucose [Mass/Vol] 79 mg/dL Normal 74-106 [facility] Comment on above: Performed By: #### C MP ####[facility] Rkvutmbxyg8951 [place] [address]Dr. Airam Tripathi Potassium [Moles/Vol] 5.7 mmol/L Critically high 3.5-5.1 [facility] Comment on above: Performed By: #### C MP ####[facility] Pouuwhbvsl1030 [place] [phone]. Airam Tripathi Protein [Mass/Vol] 6.9 g/dL Normal 6.4-8.2 [facility] Comment on above: Performed By: #### C MP ####[facility] Oreqgrrvdm3024 [place] [phone]. Airam Tripathi Sodium [Moles/Vol] 133 mmol/L Critically low 136-145 [facility] Comment on above: Performed By: #### C MP ####[facility] Ovhtrvgicc6137 [place] [address]Dr. Airam Tripathi Urea nitrogen [Mass/Vol] 35.0 mg/dL Critically high 7.0-18.0 [facility] Comment on above: Performed By: #### C MP ####[facility] Uxftnnojhs[address] [place], [place] [address]Dr. Airam Tripathi Urea nitrogen/Creatinine [Mass ratio] 24.6 mg/mg Normal [facility] Comment on above: Performed By: #### C MP ####[facility] Psrawfknbj[address] [place], [place] [address]Dr. Airam Tripathi OSMOLALITYon 10-02-2022 Osmolality [Osmolality] 277 mosm/kg Normal 275-295 [facility] Comment on above: Performed By: #### O SMO ####[facility] Asmozzozuo34[address] [place], [place] [address]Dr. Airam Deuce CBC AUTO DIFFon 09-29-2022 BASO # 0.0 103/ul Normal 0.0-0.1 [facility] Comment on above: Performed By: #### C BC ####[facility] Yxdddmdpjq13[address] [place], [place] [address]Dr. Airam Deuce Basophils/100 WBC (Bld) 0.5 % Normal 0.2-2.0 [facility] Comment on above: Performed By: #### C BC ####[facility] Hsitctjixs328[address] [place], [place] [address]Dr. Airam Tripathi EO # 0.2 103/ul Normal 0.0-0.7 [facility] Comment on above: Performed By: #### C BC ####[facility] Nlybkbleig2739[address] [place], [place] [address]Dr. Airam Deuce Eosinophils/100 WBC (Bld) 3.2 % Normal 0.9-7.0 [facility] Comment on above: Performed By: #### C BC ####[facility] Motwtaiusa[address] [place], [place] [address]Dr. Selenaneil Tripathi Erythrocyte distribution width (RBC) [Ratio] 15.1 % Critically high 11.0-15.0 [facility] Comment on above: Performed By: #### C BC ####[facility] Giwkdvyiug9621 [place] [address]Dr. Airam Tripathi Hematocrit (Bld) [Volume fraction] 26.2 % Critically low 36.0-48.0 [facility] Comment on above: Performed By: #### C BC ####[facility] Pzavmvgjkt6157 [place] [address]Dr. Airam Deuce Hemoglobin (Bld) [Mass/Vol] 8.1 g/dL Critically low 12.0-16.0 [facility] Comment on above: Performed By: #### C BC ####[facility] Ncaktldqln4[address] [place], [place] [address]Dr. Airam Tripathi IG # 0.02 10e3/ul Normal 0.00-0.03 [facility] Comment on above: Performed By: #### C BC ####[facility] Fmpaavilpx01[address] [place], [place] [address]Dr. Airam Tripathi IG % 0.4 % Normal 0.0-0.5 [facility] Comment on above: Performed By: #### C BC ####[facility] Epzixntbsz[address] [place], [place] [address]DrKianna Selenaneil Tripathi LYMPH # 1.3 103/ul Normal 1.2-3.8 [facility] Comment on above: Performed By: #### C BC ####[facility] Waexzqehay48[address] [place], [place] [address]DrKianna Tripathi Lymphocytes/100 WBC (Bld) 22.6 % Normal 20.5-60.0 [facility] Comment on above: Performed By: #### C BC ####[facility] Ctguhitalu39[address] [place], [place] [address]DrKianna Selenaneil Tripathi MANUAL DIFF REQ NO Normal [facility] Comment on above: Performed By: #### C BC ####[facility] Dazcrubamx8[address] [place], [place] [address]DrKianna Tripathi MCH (RBC) [Entitic mass] 28.0 pg Normal 26.7-34.0 [facility] Comment on above: Performed By: #### C BC ####[facility] Htghfvufce4299 [place] [phone]. Airam Tripathi MCHC (RBC) [Mass/Vol] 30.9 g/dL Normal 29.9-35.2 [facility] Comment on above: Performed By: #### C BC ####[facility] Lgggfrlnft3647 [place] [phone] Tripathi MCV (RBC) [Entitic vol] 90.7 fL Normal 81.0-99.0 [facility] Comment on above: Performed By: #### C BC ####[facility] Zehstyasym5151 [place] [phone] Tripathi MONO # 0.5 103/ul Normal 0.3-0.8 [facility] Comment on above: Performed By: #### C BC ####[facility] Kxzhuctqur3346 [place] [address]DrKianna Tripathi Monocytes/100 WBC (Bld) 9.6 % Normal 1.7-12.0 [facility] Comment on above: Performed By: #### C BC ####[facility] Atagxhvztz[address] [place], [place] [id number] Tripathi NEUT # 3.6 103/ul Normal 1.4-6.5 [facility] Comment on above: Performed By: #### C BC ####[facility] Qjnyjjdaks[address] [place], [place] [address]DrKianna Tripathi Neutrophils/100 WBC (Bld) 63.7 % Normal 43.0-75.0 [facility] Comment on above: Performed By: #### C BC ####[facility] Gvlkijqakl5187 [place] [phone] Tripathi Platelet mean volume (Bld) [Entitic vol] 9.4 fL Critically low 9.5-13.5 [facility] Comment on above: Performed By: #### C BC ####[facility] Brokivvpol0809 [place] [phone] Tripathi PLT 258 103/ul Normal 150-450 [facility] Comment on above: Performed By: #### C BC ####[facility] Lcdhwejpba4507 [place] [address]Dr. Airam Tripathi RBC 2.89 106/ul Critically low 4.20-5.40 [facility] Comment on above: Performed By: #### C BC ####[facility] Zrsgdizrxc1813 [place] [phone]. Airam Tripathi WBC 5.6 103/ul Normal 4.0-11.0 [facility] Comment on above: Performed By: #### C BC ####[facility] Xgvhupylbf9508 [place] [address]Dr. Airam Tripathi PROF 14(COMP METB)on 023 Albumin [Mass/Vol] 3.0 g/dL Critically low 3.4-5.0 [facility] Comment on above: Performed By: #### C MP ####[facility] Jhgumczrln[address] [place], [place] [address]Dr. Airam Tripathi Albumin/Globulin [Mass ratio] 1.1 {ratio} Normal [facility] Comment on above: Performed By: #### C MP ####[facility] Xaebvwjill22[address] [place], [place] [address]Dr. Airam Trpiathi ALP [Catalytic activity/Vol] 102 U/L Normal 46-116 [facility] Comment on above: Performed By: #### C MP ####[facility] Bljtlxtjar374[address] [place], [place] [address]Dr. Airam Tripathi ALT [Catalytic activity/Vol] 20 U/L Normal 14-59 [facility] Comment on above: Performed By: #### C MP ####[facility] Ywlgxcbbee0101[address] [place], [place] [address]Dr. Airam Tripathi Anion gap [Moles/Vol] 11.1 mmol/L Normal [facility] Comment on above: Performed By: #### C MP ####[facility] Gqzedssunv6912[address] [place], [place] [address]Dr. Airam Tripathi AST [Catalytic activity/Vol] 18 U/L Normal 15-37 [facility] Comment on above: Performed By: #### C MP ####[facility] Kvavbkqmfy1466 [place] [phone]. Airam Tripathi Bilirubin [Mass/Vol] 0.2 mg/dL Normal 0.2-1.0 [facility] Comment on above: Performed By: #### C MP ####[facility] Cpknoicrln5434 [place] [phone]. Airam Tripathi Calcium [Mass/Vol] 8.0 mg/dL Critically low 8.5-10.1 [facility] Comment on above: Performed By: #### C MP ####[facility] Sbmnycqlsg4170 [place] [address]Dr. Airam Tripathi Chloride [Moles/Vol] 100 mmol/L Normal 98-107 [facility] Comment on above: Performed By: #### C MP ####[facility] Opwlhxadtv517[address] [place], [place] [address]Dr. Airam Tripathi CO2 [Moles/Vol] 24.8 mmol/L Normal 21.0-32.0 [facility] Comment on above: Performed By: #### C MP ####[facility] Cfdkrwlqge0219[address] [place], [place] [address]Dr. Airam Tripathi Creatinine [Mass/Vol] 1.11 mg/dL Critically high 0.55-1.02 [facility] Comment on above: Performed By: #### C MP ####[facility] Ethcngbime7[address] [place], [place] [address]Dr. Airam Tripathi EGFR-AF [place] >60 Normal >=60 [facility] Comment on above: Performed By: #### C MP ####[facility] Mudxcqaagi8003 [place] [phone]. Airam Deuce EGFR-NON AF [place] 50 mL/min/1.73m2 Critically low >=60 [facility] Comment on above: Performed By: #### C MP ####[facility] Qvvedzkftb6588 [place] [phone]. Airam Tripathi Globulin (S) [Mass/Vol] 2.8 g/dL Normal [facility] Comment on above: Performed By: #### C MP ####[facility] Rpsaaozqod5217 [place] [phone]. Airam Tripathi Glucose [Mass/Vol] 77 mg/dL Normal 74-106 [facility] Comment on above: Performed By: #### C MP ####[facility] Kvmbuvwecm7030 [place] [phone]. Ariam Tripathi Potassium [Moles/Vol] 4.9 mmol/L Normal 3.5-5.1 [facility] Comment on above: Performed By: #### C MP ####[facility] Oaqtrwowlp0923 [place] [phone]. Airam Tripatih Protein [Mass/Vol] 5.8 g/dL Critically low 6.4-8.2 [facility] Comment on above: Performed By: #### C MP ####[facility] Qqrovhvijm[address] [place], [place] [address]Dr. Airam Tripathi Sodium [Moles/Vol] 131 mmol/L Critically low 136-145 [facility] Comment on above: Performed By: #### C MP ####[facility] Xvsaxymiyx8[address] [place], [place] [address]Dr. Airam Tripathi Urea nitrogen [Mass/Vol] 33.0 mg/dL Critically high 7.0-18.0 [facility] Comment on above: Performed By: #### C MP ####[facility] Wanlassjin448[address] [place], [place] [address]Dr. Airam Tripathi Urea nitrogen/Creatinine [Mass ratio] 29.7 mg/mg Normal [facility] Comment on above: Performed By: #### C MP ####[facility] Oxluhrrfmk1157 [place] [address]Dr. Airam Deuce ECHOCARDIO M/2D COMPLETEon 0 09-21-2022 ECHOCARDIO M/2D COMPLETE Normal [facility] OSMOLALITYon 09-21-2022 Osmolality [Osmolality] 282 mosm/kg Normal 275-295 [facility] Comment on above: Performed By: #### O SMO ####[facility] Eskjdmxzun[address] [place], [place] [address]Dr. Airam Tripathi PHOSPHOLIPIDSon 09-21-2022 Phospholipids, Serum 249 mg/dL Normal 151-288 [facility] Comment on above: Performed By: #### P HOSLIP ####[facility] Ukpxuwnipm[address] [place], [place] [address]Dr. Airam Tripathi CBC AUTO DIFFon 09-20-2022 BASO # 0.0 103/ul Normal 0.0-0.1 [facility] Comment on above: Performed By: #### C BC ####[facility] Iganvmomxs025[address] [place], [place] [address]Dr. Airam Tripathi Basophils/100 WBC (Bld) 0.5 % Normal 0.2-2.0 [facility] Comment on above: Performed By: #### C BC ####[facility] Vrytegmoyu8090[address] [place], [place] [address]Dr. Selenaneil Tripathi EO # 0.2 103/ul Normal 0.0-0.7 [facility] Comment on above: Performed By: #### C BC ####[facility] Vydsqqpevm36[address] [place], [place] [address]Dr. Airam Tripathi Eosinophils/100 WBC (Bld) 2.9 % Normal 0.9-7.0 [facility] Comment on above: Performed By: #### C BC ####[facility] Lsqcxudjnq9[address] [place], [place] [address]Dr. Selenaneil Deuce Erythrocyte distribution width (RBC) [Ratio] 15.4 % Critically high 11.0-15.0 [facility] Comment on above: Performed By: #### C BC ####[facility] Umcsrmhbjz6[address] [place], [place] [address]Dr. Airam Tripathi Hematocrit (Bld) [Volume fraction] 26.3 % Critically low 36.0-48.0 [facility] Comment on above: Performed By: #### C BC ####[facility] Egmlqijzbz3060[address] [place], [place] [address]Dr. Airam Tripathi Hemoglobin (Bld) [Mass/Vol] 8.2 g/dL Critically low 12.0-16.0 [facility] Comment on above: Performed By: #### C BC ####[facility] Eiydngfmxl9332 [place] [address]Dr. Airam Deuce IG # 0.03 10e3/ul Normal 0.00-0.03 [facility] Comment on above: Performed By: #### C BC ####[facility] Vpggzqazao8126 [place] [address]Dr. Airam Tripathi IG % 0.4 % Normal 0.0-0.5 [facility] Comment on above: Performed By: #### C BC ####[facility] Swpwxivcfu00[address] [place], [place] [address]DrKianna Tripathi LYMPH # 1.9 103/ul Normal 1.2-3.8 [facility] Comment on above: Performed By: #### C BC ####[facility] Dlcyvsilir53[address] [place], [place] [address]Dr. Airam Tripathi Lymphocytes/100 WBC (Bld) 23.0 % Normal 20.5-60.0 [facility] Comment on above: Performed By: #### C BC ####[facility] Zepewqllyp224[address] [place], [place] [address]Dr. Selenaneil Tripathi MANUAL DIFF REQ NO Normal [facility] Comment on above: Performed By: #### C BC ####[facility] Vhiyrpyyon201[address] [place], [place] [address]DrKianna Airam Deuce MCH (RBC) [Entitic mass] 28.5 pg Normal 26.7-34.0 [facility] Comment on above: Performed By: #### C BC ####[facility] Spatwnuhms70[address] [place], [place] [address]DrKianna Airam Deuce MCHC (RBC) [Mass/Vol] 31.2 g/dL Normal 29.9-35.2 [facility] Comment on above: Performed By: #### C BC ####[facility] Xmmadptwza4[address] [place], [place] [address]DrKianna Airam Deuce MCV (RBC) [Entitic vol] 91.3 fL Normal 81.0-99.0 [facility] Comment on above: Performed By: #### C BC ####[facility] Nyvanmcgtb33[address] [place], [place] [address]Dr. Airam Tripathi MONO # 0.7 103/ul Normal 0.3-0.8 [facility] Comment on above: Performed By: #### C BC ####[facility] Cuyeccgoxl0701 [place] [address]Dr. Airam Tripathi Monocytes/100 WBC (Bld) 7.7 % Normal 1.7-12.0 [facility] Comment on above: Performed By: #### C BC ####[facility] Hogzumcppd8650 [place] [address]Dr. Airam Tripathi NEUT # 5.5 103/ul Normal 1.4-6.5 [facility] Comment on above: Performed By: #### C BC ####[facility] Rbyzpzggwd7993 [place] [address]Dr. Airam Tripathi Neutrophils/100 WBC (Bld) 65.5 % Normal 43.0-75.0 [facility] Comment on above: Performed By: #### C BC ####[facility] Brvrxuzbvx17[address] [place], [place] [address]Dr. Airam Tripathi Platelet mean volume (Bld) [Entitic vol] 9.1 fL Critically low 9.5-13.5 [facility] Comment on above: Performed By: #### C BC ####[facility] Xudyivntjf4482 [place] [address]Dr. Airam Tripathi PLT 258 103/ul Normal 150-450 [facility] Comment on above: Performed By: #### C BC ####[facility] Rdzpqxxjbd[address] [place], [place] [address]Dr. Airam Tripathi RBC 2.88 106/ul Critically low 4.20-5.40 [facility] Comment on above: Performed By: #### C BC ####[facility] Wbnzefbkbs5[address] [place], [place] [address]Dr. Airam Tripathi WBC 8.4 103/ul Normal 4.0-11.0 [facility] Comment on above: Performed By: #### C BC ####[facility] Btxwtvlnlk[address] [place], [place] [address]Dr. Yineil Tripathi PROF CHEM 8 (BAS METB)on Anion gap [Moles/Vol] 10.3 mmol/L Normal [facility] Comment on above: Performed By: #### B MP ####[facility] [address] [place] [address]Dr. Airam Tripathi Calcium [Mass/Vol] 7.9 mg/dL Critically low 8.5-10.1 [facility] Comment on above: Performed By: #### B MP ####[facility] Pvthbeerib[address] [place], [place] [address]Dr. Airam Tripathi Chloride [Moles/Vol] 98 mmol/L Normal 98-107 [facility] Comment on above: Performed By: #### B MP ####[facility] Uzzkuunzzz6[address] [place], [place] [address]Dr. Airam Tripathi CO2 [Moles/Vol] 27.5 mmol/L Normal 21.0-32.0 [facility] Comment on above: Performed By: #### B MP ####[facility] Vvthupjgni6447[address] [place], [place] [address]Dr. Airam Tripathi Creatinine [Mass/Vol] 1.44 mg/dL Critically high 0.55-1.02 [facility] Comment on above: Performed By: #### B MP ####[facility] Vemywqamht480[address] [place], [place] [address]Dr. Airam Tripathi EGFR-AF [place] 45 mL/min/1.73m2 Critically low >=60 [facility] Comment on above: Performed By: #### B MP ####[facility] Gsqxzkbmxq18[address] [place], [place] [address]Dr. Airam Tripathi EGFR-NON AF [place] 37 mL/min/1.73m2 Critically low >=60 [facility] Comment on above: Performed By: #### B MP ####[facility] Pvqqhdlcxl[address] [place], [place] [address]Dr. Airam Tripathi Glucose [Mass/Vol] 91 mg/dL Normal 74-106 [facility] Comment on above: Performed By: #### B MP ####[facility] Qqndwcebug8737[address] [place], [place] [address]Dr. Airam Tripathi Potassium [Moles/Vol] 4.8 mmol/L Normal 3.5-5.1 [facility] Comment on above: Performed By: #### B MP ####[facility] W[address]ornu[address] [place] [address]Dr. Airam Tripathi Sodium [Moles/Vol] 131 mmol/L Critically low 136-145 [facility] Comment on above: Performed By: #### B MP ####[facility] Bpebtbeyzt3[address] [place] [address]Dr. Airam Tripathi Urea nitrogen [Mass/Vol] 40.0 mg/dL Critically high 7.0-18.0 [facility] Comment on above: Performed By: #### B MP ####[facility] Noltoqpjdy99[address] [place] [address]Dr. Airam Tripathi Urea nitrogen/Creatinine [Mass ratio] 27.8 mg/mg Normal [facility] Comment on above: Performed By: #### B MP ####[facility] Gaesivamvj[address] [place] [address]Dr. Airam Tripathi Anion gap [Moles/Vol] 10.6 mmol/L Normal [facility] Comment on above: Performed By: #### B MP ####[facility] Yqmrayetri9058[address] [place], [place] [address]Dr. Aiarm Tripathi Calcium [Mass/Vol] 7.9 mg/dL Critically low 8.5-10.1 [facility] Comment on above: Performed By: #### B MP ####[facility] Qywllbzell9[address] [place] [address]Dr. Airam Tripathi Chloride [Moles/Vol] 101 mmol/L Normal 98-107 [facility] Comment on above: Performed By: #### B MP ####[facility] Sjrwhjslrk9[address] [place], [place] [address]Dr. Airam Tripathi CO2 [Moles/Vol] 27.4 mmol/L Normal 21.0-32.0 [facility] Comment on above: Performed By: #### B MP ####[facility] Tdevequipd9[address] [place], [place] [id number]. Airam Tripathi Creatinine [Mass/Vol] 1.35 mg/dL Critically high 0.55-1.02 [facility] Comment on above: Performed By: #### B MP ####[facility] [address]qvxjugas[address] [place] [address]Dr. Selenaneil Tripathi EGFR-AF [place] 48 mL/min/1.73m2 Critically low >=60 [facility] Comment on above: Performed By: #### B MP ####[facility] Npytzygsjw47[address] [place], [place] [address]Dr. Selenaneil Deuce EGFR-NON AF [place] 40 mL/min/1.73m2 Critically low >=60 [facility] Comment on above: Performed By: #### B MP ####[facility] Usxkgfkbjp5149[address] [place], [place] [address]Dr. Airam Tripathi Glucose [Mass/Vol] 114 mg/dL Critically high 74-106 [facility] Comment on above: Performed By: #### B MP ####[facility] Dzwgwyulqk5[address] [place], [place] [address]Dr. Airam Tripathi Potassium [Moles/Vol] 5.0 mmol/L Normal 3.5-5.1 [facility] Comment on above: Performed By: #### B MP ####[facility] Mdcdzckvwu007[address] [place], [place] [address]Dr. Airam Tripathi Sodium [Moles/Vol] 134 mmol/L Critically low 136-145 [facility] Comment on above: Performed By: #### B MP ####[facility] Uhvaolpbgl675[address] [place], [place] [address]Dr. Airam Tripathi Urea nitrogen [Mass/Vol] 40.0 mg/dL Critically high 7.0-18.0 [facility] Comment on above: Performed By: #### B MP ####[facility] Ibnanlnooy4175[address] [place], [place] [address]Dr. Airam Tripathi Urea nitrogen/Creatinine [Mass ratio] 29.6 mg/mg Normal [facility] Comment on above: Performed By: #### B MP ####[facility] Iopsjdsmfl3408[address] [place], [place] [address]Dr. Airam Tripathi PTH INTACTon 09-20-2022 PTH, Intact 104 pg/mL Critically high 15-65 [facility] Comment on above: Performed By: #### P THINT ####[facility] Ccotlriuzl0927[address] [place], [place] [address]Dr. Airam Tripathi BNPon 09-19-2022 Natriuretic peptide B (Bld) [Mass/Vol] 1272.0 pg/mL Critically high <=900.0 [facility] Comment on above: Performed By: #### H STROPN, TSH, K, BNP ####[facility] Arymejffqz9125[address] [place], [place] [address]Dr. Airam Deuce CBC AUTO DIFFon 09-19-2022 BASO # 0.0 103/ul Normal 0.0-0.1 [facility] Comment on above: Performed By: #### C BC ####[facility] Vbjavsqzxw3028[address] [place], [place] [address]Dr. Airam Tripathi Basophils/100 WBC (Bld) 0.5 % Normal 0.2-2.0 [facility] Comment on above: Performed By: #### C BC ####[facility] Xavdkjckow9225[address] [place], [place] [address]Dr. Airam Deuce EO # 0.2 103/ul Normal 0.0-0.7 [facility] Comment on above: Performed By: #### C BC ####[facility] Hbfqwnwcbz675[address] [place], [place] [address]Dr. Airam Tripathi Eosinophils/100 WBC (Bld) 2.6 % Normal 0.9-7.0 [facility] Comment on above: Performed By: #### C BC ####[facility] Wadutggipr8140[address] [place], [place] [address]Dr. Airam Tripathi Erythrocyte distribution width (RBC) [Ratio] 15.5 % Critically high 11.0-15.0 [facility] Comment on above: Performed By: #### C BC ####[facility] Awexigeysj7310[address] [place], [place] [address]Dr. Airam Tripathi Hematocrit (Bld) [Volume fraction] 31.1 % Critically low 36.0-48.0 [facility] Comment on above: Performed By: #### C BC ####[facility] [address]gvbh40[address] [place] [address]DrKianna Tripathi Hemoglobin (Bld) [Mass/Vol] 9.6 g/dL Critically low 12.0-16.0 [facility] Comment on above: Performed By: #### C BC ####[facility] Dujcseiydm556[address] [place], [place] [address]DrKianna Tripathi IG # 0.04 10e3/ul Critically high 0.00-0.03 [facility] Comment on above: Performed By: #### C BC ####[facility] Qgldibzxzg4969[address] [place], [place] [address]DrKianna Tripathi IG % 0.5 % Normal 0.0-0.5 [facility] Comment on above: Performed By: #### C BC ####[facility] Kpngekeaav[address] [place], [place] [address]DrKianna Tripathi LYMPH # 1.0 103/ul Critically low 1.2-3.8 [facility] Comment on above: Performed By: #### C BC ####[facility] Vfydwbsuuk9[address] [place], [place] [address]DrKianna Tripathi Lymphocytes/100 WBC (Bld) 12.0 % Critically low 20.5-60.0 [facility] Comment on above: Performed By: #### C BC ####[facility] Xpjlgipnfb94[address] [place], [place] [address]DrKianna Tripathi MANUAL DIFF REQ NO Normal [facility] Comment on above: Performed By: #### C BC ####[facility] Dqzxhmjmqa064[address] [place], [place] [address]DrKianna Tripathi MCH (RBC) [Entitic mass] 28.2 pg Normal 26.7-34.0 [facility] Comment on above: Performed By: #### C BC ####[facility] [address]rfwrgp32[address] [place] [address]DrKianna Tripathi MCHC (RBC) [Mass/Vol] 30.9 g/dL Normal 29.9-35.2 [facility] Comment on above: Performed By: #### C BC ####[facility] F[address]cvqsrlv8[address] [place] [address]DrKianna Airam Deuce MCV (RBC) [Entitic vol] 91.5 fL Normal 81.0-99.0 [facility] Comment on above: Performed By: #### C BC ####[facility] F[address]qzfflnzy8050 [place] [address]DrKianna Tripathi MONO # 0.5 103/ul Normal 0.3-0.8 [facility] Comment on above: Performed By: #### C BC ####[facility] Mjhsmliulr6[address] [place] [address]DrKianna Tripathi Monocytes/100 WBC (Bld) 6.4 % Normal 1.7-12.0 [facility] Comment on above: Performed By: #### C BC ####[facility] Uijlnzvcky39[address] [place], [place] [address]Dr. Airam Tripathi NEUT # 6.4 103/ul Normal 1.4-6.5 [facility] Comment on above: Performed By: #### C BC ####[facility] Dplhmikfhb[address] [place], [place] [address]Dr. Airam Tripathi Neutrophils/100 WBC (Bld) 78.0 % Critically high 43.0-75.0 [facility] Comment on above: Performed By: #### C BC ####[facility] Ejsstbmaai[address] [place], [place] [address]Dr. Airam Tripathi Platelet mean volume (Bld) [Entitic vol] 9.1 fL Critically low 9.5-13.5 [facility] Comment on above: Performed By: #### C BC ####[facility] Ohkogjjwmu8714[address] [place], [place] [address]Dr. Airam Tripathi PLT 318 103/ul Normal 150-450 [facility] Comment on above: Performed By: #### C BC ####[facility] [address]hir[address] [place] [id number] Tripathi RBC 3.40 106/ul Critically low 4.20-5.40 [facility] Comment on above: Performed By: #### C BC ####[facility] W[address]uxzkdrbf9[address] [place] [id number]. Airam Tripathi WBC 8.2 103/ul Normal 4.0-11.0 [facility] Comment on above: Performed By: #### C BC ####[facility] Yjtxkkbcqk85[address] [place], [place] [address]Hy. Airam Tripathi Covid-19 PCR (CVDTB)on 08-25 SARS-CoV-2 (COVID-19) RNA MIKE+probe Ql (Unsp spec) Not detected Normal NOT DETECTED [facility] Comment on above: Result Comment: [...] for this test is supported by the Predatory Animal Exterminator of Health and Human Service's declaration that [...] be used). Performed By: #### C VDTBH ####[facility] [address] [place] [id number]. Airam Tripathi LACTATE/LACTIC ACIDon 2022 Lactate [Moles/Vol] 0.4 mmol/L Normal 0.4-2.0 [facility] Comment on above: Performed By: #### L ACT ####[facility] [address]zcw[address]xa26[address] [place] [id number]. Airam Tripathi POTASSIUMon 09-19-2022 Potassium [Moles/Vol] 6.3 mmol/L Critically high 3.5-5.1 [facility] Comment on above: Performed By: #### H STROPN, TSH, K, BNP ####[facility] Tpgfrzryqe4[address] [place] [address]Dr. Airam Tripathi PROF 14(COMP METB)on 023 Albumin [Mass/Vol] 3.5 g/dL Normal 3.4-5.0 [facility] Comment on above: Performed By: #### C MP ####[facility] Mpkyhnyfqs[address] [place] [address]Dr. Airam Tripathi Albumin/Globulin [Mass ratio] 1.1 {ratio} Normal [facility] Comment on above: Performed By: #### C MP ####[facility] Dfcxpwvwxi14[address] [place], [place] [address]Dr. Airam Tripathi ALP [Catalytic activity/Vol] 113 U/L Normal 46-116 [facility] Comment on above: Performed By: #### C MP ####[facility] Rqumxudhyp[address] [place], [place] [address]Dr. Airam Tripathi ALT [Catalytic activity/Vol] 26 U/L Normal 14-59 [facility] Comment on above: Performed By: #### C MP ####[facility] Uddofejowp98[address] [place], [place] [address]Dr. Airam Tripathi Anion gap [Moles/Vol] 11.5 mmol/L Normal [facility] Comment on above: Performed By: #### C MP ####[facility] Suruggdmlh[address] [place] [address]Dr. Airam Tripathi AST [Catalytic activity/Vol] 24 U/L Normal 15-37 [facility] Comment on above: Performed By: #### C MP ####[facility] Evsdnyharc[address]66 [place] [address]Dr. Airam Tripathi Bilirubin [Mass/Vol] 0.3 mg/dL Normal 0.2-1.0 [facility] Comment on above: Performed By: #### C MP ####[facility] Dryejfmkcy4962 [place] [address]Dr. Airam Tripathi Calcium [Mass/Vol] 8.9 mg/dL Normal 8.5-10.1 [facility] Comment on above: Performed By: #### C MP ####[facility] Ovvmryjohs9112 [place] [address]Dr. Airam Tripathi Chloride [Moles/Vol] 103 mmol/L Normal 98-107 [facility] Comment on above: Performed By: #### C MP ####[facility] Zqcwohlvig23[address] [place] [address]Dr. Airam Tripathi CO2 [Moles/Vol] 27.8 mmol/L Normal 21.0-32.0 [facility] Comment on above: Performed By: #### C MP ####[facility] Zqxskddyac9136 [place] [address]Dr. Airam Tripathi Creatinine [Mass/Vol] 1.28 mg/dL Critically high 0.55-1.02 [facility] Comment on above: Performed By: #### C MP ####[facility] Aeftuhazgu6037[address] [place], [place] [address]Dr. Airam Tripathi EGFR-AF [place] 52 mL/min/1.73m2 Critically low >=60 [facility] Comment on above: Performed By: #### C MP ####[facility] Zldnnnjjae30[address] [place], [place] [address]Dr. Airam Tripathi EGFR-NON AF [place] 43 mL/min/1.73m2 Critically low >=60 [facility] Comment on above: Performed By: #### C MP ####[facility] Qlofgtanpu7870[address] [place], [place] [address]Dr. Airam Tripathi Globulin (S) [Mass/Vol] 3.2 g/dL Normal [facility] Comment on above: Performed By: #### C MP ####[facility] Tlkjqlzbsc9764 [place] [address]Dr. Airam Deuce Glucose [Mass/Vol] 95 mg/dL Normal 74-106 [facility] Comment on above: Performed By: #### C MP ####[facility] Wtgpxitlhv[address] [place] [address]Dr. Airam Deuce Potassium [Moles/Vol] 6.3 mmol/L Critically high 3.5-5.1 [facility] Comment on above: Performed By: #### C MP ####[facility] Ppveflcspu9658 [place] [address]Dr. Airam Tripathi Protein [Mass/Vol] 6.7 g/dL Normal 6.4-8.2 [facility] Comment on above: Performed By: #### C MP ####[facility] Inzcaumhhd6134 [place] [address]Dr. Airam Tripathi Sodium [Moles/Vol] 135 mmol/L Critically low 136-145 [facility] Comment on above: Performed By: #### C MP ####[facility] Iklwdxodnd8589 [place] [address]Dr. Airam Tripathi Urea nitrogen [Mass/Vol] 42.0 mg/dL Critically high 7.0-18.0 [facility] Comment on above: Performed By: #### C MP ####[facility] [address]asnmhluq[address] [place], [place] [address]Dr. Airam Tripathi Urea nitrogen/Creatinine [Mass ratio] 32.8 mg/mg Normal [facility] Comment on above: Performed By: #### C MP ####[facility] Ofpawbzber9[address] [place], [place] [address]Dr. Airam Tripathi TROPONIN, HIGH SENSITIVITYon 09-19-2022 HSTROP 7.1 pg/mL Normal 4.0-51.3 [facility] Comment on above: Result Comment: CUT- OFF POINTS HAVE BEEN ESTABLISHED BASED ON THE FOURTH UNIVERSAL DEFINITIONS OF MYOCARDIALINFARCTION. THE UPPER REFERENCE LIMIT (URL) OF TROPONIN, DEFINED THE 99TH PERCENTILE OFcTnI DISTRIBUTION IN A REFERENCE POPULATION, HAS BEEN CONFIRMED THE DECISION THRESHOLDFOR DC DIAGNOSIS. Performed By: #### H STROPN, TSH, K, BNP ####[facility] X[address]jdbjqhm264[address] [place], [place] [address]Dr. Airam Tripathi TSHon 09-19-2022 TSH 0.028 uIU/mL Critically low 0.358-3.74 0 [facility] Comment on above: Performed By: #### H STROPN, TSH, K, BNP ####[facility] Ttodtajghz39[address] [place], [place] [address]Dr. Airam Tripathi UA RANDOMon 09-19-2022 Bilirubin Ql (U) Negative Normal NEGATIVE [facility] Comment on above: Performed By: #### U A ####[facility] Mhzgaamofz47[address] [place], [place] [address]Dr. Airam Tripathi Clarity (U) CLEAR Normal CLEAR [facility] Comment on above: Performed By: #### U A ####[facility] Tuaherufym2675[address] [place], [place] [address]Dr. Airam Tripathi Color (U) LT. YELLOW Normal YELLOW [facility] Comment on above: Performed By: #### U A ####[facility] Yskkxrlxzj[address] [place], [place] [address]Dr. Airam Tripathi Glucose Ql (U) Negative Normal NEGATIVE [facility] Comment on above: Performed By: #### U A ####[facility] Yphtgjsdsb[address] [place], [place] [address]Dr. Airam Tripathi Hemoglobin Ql (U) Negative Normal NEGATIVE [facility] Comment on above: Performed By: #### U A ####[facility] Axzlrbggsm714[address] [place], [place] [address]Dr. Airam Tripathi Ketones Ql (U) Negative Normal NEGATIVE [facility] Comment on above: Performed By: #### U A ####[facility] Nwkjwehjhp60[address] [place], [place] [address]Dr. Airam Tripathi LEUKOCYTES TRACE Abnormal NEGATIVE [facility] Comment on above: Performed By: #### U A ####[facility] Ljfontflfy5926[address] [place], [place] [address]Dr. Airam Tripathi Nitrite Ql (U) Negative Normal NEGATIVE [facility] Comment on above: Performed By: #### U A ####[facility] Myddxpjvig3949[address] [place], [place] [address]Dr. Airam Tripathi pH (U) 5.5 [pH] Normal 5-9 [facility] Comment on above: Performed By: #### U A ####[facility] Ipsvvhixvc69[address] [place], [place] [address]Dr. Airam Tripathi SPEC GRAVITY 1.010 Normal 1.005-<=1. 025 [facility] Comment on above: Performed By: #### U A ####[facility] Izdibuzsbo05[address] [place] [address]Dr. Airam Tripathi UA PROTEIN Negative Normal NEGATIVE/ TRACE [facility] Comment on above: Performed By: #### U A ####[facility] Brduwwbkvn7571 [place] [address]Dr. Airam Tripathi Urobilinogen Qn (U) 0.2 {Ligia'U}/dL Normal 0.2 - 1. 0 [facility] Comment on above: Performed By: #### U A ####[facility] Ifxygcysxy30[address] [place], [place] [address]Dr. Airam Tripathi URIC ACID SERUMon 09-19-2022 Urate [Mass/Vol] 6.9 mg/dL Critically high 2.6-6.0 [facility] Comment on above: Performed By: #### U TRESSA ####[facility] Qadnnfrrgu2524[address] [place], [place] [address]Dr. Airam Tripathi URINE T PROTEIN CREAT RATIOo n 09-19-2022 UR TOTAL PROTEIN <6.0 Normal <=12.0 [facility] Comment on above: Performed By: #### U RTPCR ####[facility] Nzapswcrzy6[address] [place], [place] [address]Dr. Airam Tripathi URINE CREAT 15.12 mg/dL Critically low 20.00-300. 00 [facility] Comment on above: Performed By: #### U RTPCR ####[facility] Xxqoumekyx66[address] [place], [place] [address]Dr. Airam Tripathi VITAMIN D 25 OHon 09-19-2022 VIT D 25-OH 75.9 ng/mL Normal [facility] Comment on above: Performed By: #### V ITAD ####[facility] Ahjtpfusvo33[address] [place], [place] [address]Dr. Airam Tripathi VIT D RANGES SEE BELOW Normal [facility] Comment on above: Result Comment: <20 ng/mL Vit D deficient 20 - <30 ng/mL Vit D insufficient 30 - 100 ng/mL Vit D sufficient >100 ng/mL Potential Toxicity Performed By: #### V ITAD ####[facility] Qfpkjefyeh9[address] [place] [address]Dr. Airam Tripathi OSMOLALITYon 09-14-2022 Osmolality [Osmolality] 272 mosm/kg Critically low 275-295 [facility] Comment on above: Performed By: #### O SMO ####[facility] Jjeuktqptt40[address] [place], [place] [address]Dr. Airam Tripathi CBC AUTO DIFFon 09-12-2022 BASO # 0.0 103/ul Normal 0.0-0.1 [facility] Comment on above: Performed By: #### C BC ####[facility] Lcqaaxmxqd7968[address] [place], [place] [address]Dr. Airam Tripathi Basophils/100 WBC (Bld) 0.5 % Normal 0.2-2.0 [facility] Comment on above: Performed By: #### C BC ####[facility] Tmcvyupdgv6[address] [place], [place] [address]DrKianna Tripathi EO # 0.2 103/ul Normal 0.0-0.7 [facility] Comment on above: Performed By: #### C BC ####[facility] Tmkalpqvyg0089[address] [place], [place] [address]DrKianna Tripathi Eosinophils/100 WBC (Bld) 2.4 % Normal 0.9-7.0 [facility] Comment on above: Performed By: #### C BC ####[facility] Glescyjynf[address] [place], [place] [address]DrKianna Tripathi Erythrocyte distribution width (RBC) [Ratio] 14.8 % Normal 11.0-15.0 [facility] Comment on above: Performed By: #### C BC ####[facility] Smwwztckut360[address] [place], [place] [address]DrKianna Tripathi Hematocrit (Bld) [Volume fraction] 32.6 % Critically low 36.0-48.0 [facility] Comment on above: Performed By: #### C BC ####[facility] Qykqqaurei6[address] [place], [place] [address]DrKianna Tripathi Hemoglobin (Bld) [Mass/Vol] 10.1 g/dL Critically low 12.0-16.0 [facility] Comment on above: Performed By: #### C BC ####[facility] [address]mnwuxfk[address] [place] [address]DrKianna Tripathi IG # 0.05 10e3/ul Critically high 0.00-0.03 [facility] Comment on above: Performed By: #### C BC ####[facility] Jkntefzkzf1420 [place] [address]DrKianna Tripathi IG % 0.7 % Critically high 0.0-0.5 [facility] Comment on above: Performed By: #### C BC ####[facility] Oytcqlvmau67[address] [place], [place] [address]DrKianna Tripathi LYMPH # 1.9 103/ul Normal 1.2-3.8 [facility] Comment on above: Performed By: #### C BC ####[facility] Qiojribior94[address] [place], [place] [address]DrKianna Tripathi Lymphocytes/100 WBC (Bld) 24.7 % Normal 20.5-60.0 [facility] Comment on above: Performed By: #### C BC ####[facility] Gpufbalngd[address] [place], [place] [address]DrKianna Tripathi MANUAL DIFF REQ NO Normal [facility] Comment on above: Performed By: #### C BC ####[facility] Pswyurauwb12[address] [place], [place] [address]DrKianna Tripathi MCH (RBC) [Entitic mass] 28.0 pg Normal 26.7-34.0 [facility] Comment on above: Performed By: #### C BC ####[facility] Hzjxydpyqt75[address] [place], [place] [address]DrKianna Tripathi MCHC (RBC) [Mass/Vol] 31.0 g/dL Normal 29.9-35.2 [facility] Comment on above: Performed By: #### C BC ####[facility] Ouuzrfcuxc[address] [place], [place] [address]DrKianna Tripathi MCV (RBC) [Entitic vol] 90.3 fL Normal 81.0-99.0 [facility] [facility] Comment on above: Performed By: #### C BC ####[facility] Xpfoypnykm8[address] [place] [address]DrKianna Tripathi MONO # 0.5 103/ul Normal 0.3-0.8 [facility] Comment on above: Performed By: #### C BC ####[facility] Bdundilhrt8175 [place] [address]DrKianna Tripathi Monocytes/100 WBC (Bld) 6.0 % Normal 1.7-12.0 [facility] Comment on above: Performed By: #### C BC ####[facility] Cxgrohvvvb7[address] [place], [place] [address]DrKianna Tripathi NEUT # 5.0 103/ul Normal 1.4-6.5 [facility] Comment on above: Performed By: #### C BC ####[facility] Oktvsjqqym012[address] [place], [place] [address]DrKianna Tripathi Neutrophils/100 WBC (Bld) 65.7 % Normal 43.0-75.0 [facility] Comment on above: Performed By: #### C BC ####[facility] Tbhomzssvp368[address] [place], [place] [address]DrKianna Tripathi Platelet mean volume (Bld) [Entitic vol] 9.5 fL Normal 9.5-13.5 [facility] Comment on above: Performed By: #### C BC ####[facility] Eohclhubwl3729[address] [place], [place] [address]Dr. Airam Tripathi PLT 307 103/ul Normal 150-450 [facility] Comment on above: Performed By: #### C BC ####[facility] Xpbrqsbrvy375[address] [place], [place] [address]DrKianna Tripathi RBC 3.61 106/ul Critically low 4.20-5.40 [facility] Comment on above: Performed By: #### C BC ####[facility] Mhfytrgkty457[address] [place], [place] [address]DrKianna Tripathi WBC 7.5 103/ul Normal 4.0-11.0 [facility] Comment on above: Performed By: #### C BC ####[facility] Hdblurifcb1864 [place] [address]DrKianna Tripathi PROF 14(COMP METB)on 023 Albumin [Mass/Vol] 3.5 g/dL Normal 3.4-5.0 [facility] Comment on above: Performed By: #### C MP ####[facility] Cgrckvuqic7942 [place] [address]DrKianna Tripathi Albumin/Globulin [Mass ratio] 1.1 {ratio} Normal [facility] Comment on above: Performed By: #### C MP ####[facility] Dtbbnkejnz7648 [place] [address]DrKianna Tripathi ALP [Catalytic activity/Vol] 126 U/L Critically high 46-116 [facility] Comment on above: Performed By: #### C MP ####[facility] Gulxprfmol2965[address] [place], [place] [address]Dr. Airam Tripathi ALT [Catalytic activity/Vol] 18 U/L Normal 14-59 [facility] Comment on above: Performed By: #### C MP ####[facility] Xqjhgdbedg3976 [place] [address]DrKianna Tripathi Anion gap [Moles/Vol] 11.1 mmol/L Normal [facility] Comment on above: Performed By: #### C MP ####[facility] Jyfubxfljw0797 [place] [address]DrKianna Tripathi AST [Catalytic activity/Vol] 26 U/L Normal 15-37 [facility] Comment on above: Performed By: #### C MP ####[facility] Tatlwprjsu5908 [place] [address]DrKianna Tripathi Bilirubin [Mass/Vol] 0.3 mg/dL Normal 0.2-1.0 [facility] Comment on above: Performed By: #### C MP ####[facility] Amrklfqspd0834 [place] [address]DrKianna Tripathi Calcium [Mass/Vol] 8.5 mg/dL Normal 8.5-10.1 [facility] Comment on above: Performed By: #### C MP ####[facility] Fwtnniqfez7108 [place] [address]Dr. Airam Tripathi Chloride [Moles/Vol] 98 mmol/L Normal 98-107 [facility] Comment on above: Performed By: #### C MP ####[facility] Zsnpoyejir2404 [place] [id number]. Airam Tripathi CO2 [Moles/Vol] 23.9 mmol/L Normal 21.0-32.0 [facility] Comment on above: Performed By: #### C MP ####[facility] Biyikrddkk5823 [place] [address]Dr. Airam Deuce Creatinine [Mass/Vol] 1.40 mg/dL Critically high 0.55-1.02 [facility] Comment on above: Performed By: #### C MP ####[facility] Gvvryewbyf219[address] [place], [place] [address]Dr. Airam Deuce EGFR-AF [place] 46 mL/min/1.73m2 Critically low >=60 [facility] Comment on above: Performed By: #### C MP ####[facility] Dfnvkbsxaj105823 [address] [place], [place] [address]Dr. Airam Deuce EGFR-NON AF [place] 38 mL/min/1.73m2 Critically low >=60 [facility] Comment on above: Performed By: #### C MP ####[facility] Uersyedhuw7978 [place] [address]Dr. Airam Deuce Globulin (S) [Mass/Vol] 3.3 g/dL Normal [facility] Comment on above: Performed By: #### C MP ####[facility] Jlkiduhhna8985 [place] [phone]. Airam Deuce Glucose [Mass/Vol] 72 mg/dL Critically low 74-106 [facility] Comment on above: Performed By: #### C MP ####[facility] Toxyhblegk3593 [place] [phone]. Airam Tripathi Potassium [Moles/Vol] 5.0 mmol/L Normal 3.5-5.1 [facility] Comment on above: Performed By: #### C MP ####[facility] Rhfnyowhgc1924[address] [place], [place] [address]Dr. Airam Tripathi Protein [Mass/Vol] 6.8 g/dL Normal 6.4-8.2 [facility] Comment on above: Performed By: #### C MP ####[facility] Ngmjxcftyv0066[address] [place], [place] [address]Dr. Airam Tripathi Sodium [Moles/Vol] 128 mmol/L Critically low 136-145 [facility] Comment on above: Performed By: #### C MP ####[facility] Xmfkiojiuz521823 [address] [place], [place] [address]Dr. Airam Tripathi Urea nitrogen [Mass/Vol] 27.0 mg/dL Critically high 7.0-18.0 [facility] Comment on above: Performed By: #### C MP ####[facility] Qmwnmilrfg241423 [address] [place], [place] [address]Dr. Airam Tripathi Urea nitrogen/Creatinine [Mass ratio] 19.3 mg/mg Normal [facility] Comment on above: Performed By: #### C MP ####[facility] Obtleqpoym1667[address] [place], [place] [address]Dr. Airam Tripathi OSMOLALITYon 09-10-2022 Osmolality [Osmolality] 275 mosm/kg Normal 275-295 [facility] Comment on above: Performed By: #### O SMO ####[facility] Fuhoywmiol450023 [address] [place], [place] [address]Dr. Airam Tripathi CBC AUTO DIFFon 09-08-2022 BASO # 0.0 103/ul Normal 0.0-0.1 [facility] Comment on above: Performed By: #### C BC ####[facility] Rpowhpjexi218523 [address] [place], [place] [address]Dr. Airam Tripathi Basophils/100 WBC (Bld) 0.5 % Normal 0.2-2.0 [facility] Comment on above: Performed By: #### C BC ####[facility] Vpaqefnysu320423 [address] [place], [place] [address]Dr. Airam Tripathi EO # 0.1 103/ul Normal 0.0-0.7 [facility] Comment on above: Performed By: #### C BC ####[facility] Szhgocywxw7564 [place] [address]Dr. Airam Tripathi Eosinophils/100 WBC (Bld) 1.7 % Normal 0.9-7.0 [facility] Comment on above: Performed By: #### C BC ####[facility] Kqmtswwrdv937823 [address] [place], [place] [address]Dr. Airam Tripathi Erythrocyte distribution width (RBC) [Ratio] 14.7 % Normal 11.0-15.0 [facility] Comment on above: Performed By: #### C BC ####[facility] Riemmwvuqu442523 [address] [place], [place] [address]Dr. Airam Tripathi Hematocrit (Bld) [Volume fraction] 30.3 % Critically low 36.0-48.0 [facility] Comment on above: Performed By: #### C BC ####[facility] Scwykedhhv700023 [address] [place], [place] [address]Dr. Airam Tripathi Hemoglobin (Bld) [Mass/Vol] 9.3 g/dL Critically low 12.0-16.0 [facility] Comment on above: Performed By: #### C BC ####[facility] Jadvkrhpsp109123 [address] [place], [place] [address]Dr. Airam Deuce IG # 0.03 10e3/ul Normal 0.00-0.03 [facility] Comment on above: Performed By: #### C BC ####[facility] Rkkhytcrry130823 [address] [place], [place] [address]Dr. Airam Deuce IG % 0.5 % Normal 0.0-0.5 [facility] Comment on above: Performed By: #### C BC ####[facility] Rnmorpwpbt870123 [address] [place], [place] [address]Dr. Airam Tripathi LYMPH # 0.9 103/ul Critically low 1.2-3.8 [facility] Comment on above: Performed By: #### C BC ####[facility] Uyqpxkxsmp0889[address] [place], [place] [address]DrKianna Tripathi Lymphocytes/100 WBC (Bld) 13.6 % Critically low 20.5-60.0 [facility] Comment on above: Performed By: #### C BC ####[facility] Vejlcwwypd9080 [place] [address]DrKianna Tripathi MANUAL DIFF REQ NO Normal [facility] Comment on above: Performed By: #### C BC ####[facility] Yubdrufxhn6466 [place] [address]DrKianna Tripathi MCH (RBC) [Entitic mass] 27.4 pg Normal 26.7-34.0 [facility] Comment on above: Performed By: #### C BC ####[facility] Seaemwjafg835[address] [place], [place] [address]DrKianna Tripathi MCHC (RBC) [Mass/Vol] 30.7 g/dL Normal 29.9-35.2 [facility] Comment on above: Performed By: #### C BC ####[facility] Lnivuvxuru1629[address] [place], [place] [address]DrKianna Tripathi MCV (RBC) [Entitic vol] 89.4 fL Normal 81.0-99.0 [facility] Comment on above: Performed By: #### C BC ####[facility] Xftulmpkmr860023 [address] [place], [place] [address]DrKianna Tripathi MONO # 0.5 103/ul Normal 0.3-0.8 [facility] Comment on above: Performed By: #### C BC ####[facility] Ehqzihiwkp254323 [address] [place], [place] [address]DrKianna Tripathi Monocytes/100 WBC (Bld) 8.0 % Normal 1.7-12.0 [facility] Comment on above: Performed By: #### C BC ####[facility] Pjjcuoodti9538[address] [place], [place] [address]DrKianna Tripathi NEUT # 5.0 103/ul Normal 1.4-6.5 [facility] Comment on above: Performed By: #### C BC ####[facility] Ydudlkjztd478[address] [place], [place] [address]DrKianna Tripathi Neutrophils/100 WBC (Bld) 75.7 % Critically high 43.0-75.0 [facility] Comment on above: Performed By: #### C BC ####[facility] Fnspsvdnvh7496 [place] [address]Dr. Airam Tripathi Platelet mean volume (Bld) [Entitic vol] 10.4 fL Normal 9.5-13.5 [facility] Comment on above: Performed By: #### C BC ####[facility] Zdrexknmxd9738 [place] [address]Dr. Airam Tripathi PLT 315 103/ul Normal 150-450 [facility] Comment on above: Performed By: #### C BC ####[facility] Jyqcorewkc893323 [address] [place], [place] [address]Dr. Airam Tripathi RBC 3.39 106/ul Critically low 4.20-5.40 [facility] Comment on above: Performed By: #### C BC ####[facility] Jadjygfeff7386[address] [place], [place] [address]DrKianna Tripathi WBC 6.5 103/ul Normal 4.0-11.0 [facility] Comment on above: Performed By: #### C BC ####[facility] Jqjgrqtggb924[address] [place], [place] [address]DrKianna Tripathi PROF 14(COMP METB)on 023 Albumin [Mass/Vol] 3.1 g/dL Critically low 3.4-5.0 [facility] Comment on above: Performed By: #### C MP ####[facility] Vfjrhgxrew4340[address] [place], [place] [address]DrKianna Tripathi Albumin/Globulin [Mass ratio] 1.0 {ratio} Normal [facility] Comment on above: Performed By: #### C MP ####[facility] Vosiydtjih8535[address] [place], [place] [address]DrKianna Tripathi ALP [Catalytic activity/Vol] 126 U/L Critically high 46-116 [facility] Comment on above: Performed By: #### C MP ####[facility] Tpbpyuwujn321223 [address] [place], [place] [address]DrKianna Tripathi ALT [Catalytic activity/Vol] 18 U/L Normal 14-59 [facility] Comment on above: Performed By: #### C MP ####[facility] Yivguuknzm2742 [place] [phone]. Airam Deuce Anion gap [Moles/Vol] 11.4 mmol/L Normal Th [facility] Comment on above: Performed By: #### C MP ####[facility] Gqxlabvihr7926 [place] [phone]. Airam Deuce AST [Catalytic activity/Vol] 25 U/L Normal 15-37 [facility] Comment on above: Performed By: #### C MP ####[facility] Nebqxaslov644323 [address] [place], [place] [address]Dr. Airam Tripathi Bilirubin [Mass/Vol] 0.3 mg/dL Normal 0.2-1.0 [facility] Comment on above: Performed By: #### C MP ####[facility] Poyniiugco9[address] [place], [place] [address]Dr. Airam Tripathi Calcium [Mass/Vol] 8.6 mg/dL Normal 8.5-10.1 [facility] Comment on above: Performed By: #### C MP ####[facility] Ultjryjxno601[address] [place], [place] [address]Dr. Airam Tripathi Chloride [Moles/Vol] 97 mmol/L Critically low 98-107 [facility] Comment on above: Performed By: #### C MP ####[facility] Pymtboiuvj838[address] [place], [place] [address]Dr. Airam Tripathi CO2 [Moles/Vol] 26.1 mmol/L Normal 21.0-32.0 [facility] Comment on above: Performed By: #### C MP ####[facility] Vxgwmhvipf605023 [address] [place], [place] [address]Dr. Airam Tripathi Creatinine [Mass/Vol] 1.07 mg/dL Critically high 0.55-1.02 [facility] Comment on above: Performed By: #### C MP ####[facility] Rguntgupry126423 [address] [place], [place] [address]Dr. Airam Tripathi EGFR-AF [place] >60 Normal >=60 [facility] Comment on above: Performed By: #### C MP ####[facility] Guoesgldqz4673 [place] [address]Dr. Airam Tripathi EGFR-NON AF [place] 52 mL/min/1.73m2 Critically low >=60 [facility] Comment on above: Performed By: #### C MP ####[facility] Nmrqqwicby8246 [place] [address]Dr. Airam Tripathi Globulin (S) [Mass/Vol] 3.2 g/dL Normal [facility] Comment on above: Performed By: #### C MP ####[facility] Cibimjepvu9407[address] [place], [place] [address]Dr. Airam Tripathi Glucose [Mass/Vol] 83 mg/dL Normal 74-106 [facility] Comment on above: Performed By: #### C MP ####[facility] Oztdncetal890023 [address] [place], [place] [address]Dr. Airam Tripathi Potassium [Moles/Vol] 5.5 mmol/L Critically high 3.5-5.1 [facility] Comment on above: Performed By: #### C MP ####[facility] Tzgzoxwhfw924023 [address] [place], [place] [address]Dr. Airam Tripathi Protein [Mass/Vol] 6.3 g/dL Critically low 6.4-8.2 [facility] Comment on above: Performed By: #### C MP ####[facility] Wzydqnbsix0175[address] [place], [place] [address]Dr. Airam Tripathi Sodium [Moles/Vol] 129 mmol/L Critically low 136-145 [facility] Comment on above: Performed By: #### C MP ####[facility] Lvbzhmqeps5338[address] [place], [place] [address]Dr. Airam Tripathi Urea nitrogen [Mass/Vol] 37.0 mg/dL Critically high 7.0-18.0 [facility] Comment on above: Performed By: #### C MP ####[facility] Mkjatrgjmn0728[address] [place], [place] [address]Dr. Airam Tripathi Urea nitrogen/Creatinine [Mass ratio] 34.6 mg/mg Normal [facility] Comment on above: Performed By: #### C MP ####[facility] Ulehjtcwcz7224[address] [place], [place] [address]Dr. Airam Tripathi OSMOLALITYon 09-02-2022 Osmolality [Osmolality] 279 mosm/kg Normal 275-295 [facility] Comment on above: Performed By: #### O SMO ####[facility] Wvswircxjq9094[address] [place], [place] [address]Dr. Airam Tripathi CBC AUTO DIFFon 08-31-2022 BASO # 0.0 103/ul Normal 0.0-0.1 [facility] Comment on above: Performed By: #### C BC ####[facility] Aobqrarvbf112[address] [place], [place] [address]DrKianna Tripathi Basophils/100 WBC (Bld) 0.4 % Normal 0.2-2.0 [facility] Comment on above: Performed By: #### C BC ####[facility] Upvwdpgqfg2808[address] [place], [place] [address]DrKianna Tripathi EO # 0.2 103/ul Normal 0.0-0.7 [facility] Comment on above: Performed By: #### C BC ####[facility] Tujkfbuqiu2549[address] [place], [place] [address]DrKianna Tripathi Eosinophils/100 WBC (Bld) 3.2 % Normal 0.9-7.0 [facility] Comment on above: Performed By: #### C BC ####[facility] Hdpjlphcyf2664[address] [place], [place] [address]DrKianna Tripathi Erythrocyte distribution width (RBC) [Ratio] 14.4 % Normal 11.0-15.0 [facility] Comment on above: Performed By: #### C BC ####[facility] Aylulmotmr913[address] [place], [place] [address]DrKianna Tripathi Hematocrit (Bld) [Volume fraction] 27.8 % Critically low 36.0-48.0 [facility] Comment on above: Performed By: #### C BC ####[facility] Bawbjkzvye115[address] [place], [place] [address]DrKianna Tripathi Hemoglobin (Bld) [Mass/Vol] 8.7 g/dL Critically low 12.0-16.0 [facility] Comment on above: Performed By: #### C BC ####[facility] Aoorgswynj0936 [place] [address]DrKianna Tripathi IG # 0.05 10e3/ul Critically high 0.00-0.03 [facility] Comment on above: Performed By: #### C BC ####[facility] Buyzebtrdg682[address] [place], [place] [address]Dr. Airam Tripathi IG % 0.7 % Critically high 0.0-0.5 [facility] Comment on above: Performed By: #### C BC ####[facility] Nfkhcjufcn88[address] [place], [place] [address]DrKianna Tripathi LYMPH # 1.7 103/ul Normal 1.2-3.8 [facility] Comment on above: Performed By: #### C BC ####[facility] Qflcgwcsoa880[address] [place], [place] [address]DrKianna Tripathi Lymphocytes/100 WBC (Bld) 23.6 % Normal 20.5-60.0 [facility] Comment on above: Performed By: #### C BC ####[facility] Uieolnwjpj4015[address] [place], [place] [address]DrKianna Tripathi MANUAL DIFF REQ NO Normal [facility] Comment on above: Performed By: #### C BC ####[facility] Egnqpywjwg7215[address] [place], [place] [address]DrKianna Tripathi MCH (RBC) [Entitic mass] 27.8 pg Normal 26.7-34.0 [facility] Comment on above: Performed By: #### C BC ####[facility] Lwtwtuploq8716[address] [place], [place] [address]DrKianna Tripathi MCHC (RBC) [Mass/Vol] 31.3 g/dL Normal 29.9-35.2 [facility] Comment on above: Performed By: #### C BC ####[facility] Nzmbftqkhr1856[address] [place], [place] [address]DrKianna Tripathi MCV (RBC) [Entitic vol] 88.8 fL Normal 81.0-99.0 [facility] Comment on above: Performed By: #### C BC ####[facility] Hxdyxmqjsb0854 [place] [address] Airam Tripathi MONO # 0.5 103/ul Normal 0.3-0.8 [facility] Comment on above: Performed By: #### C BC ####[facility] Xnpscehjsp1386[address] [place], [place] [address]DrKianna Airam Tripathi Monocytes/100 WBC (Bld) 6.9 % Normal 1.7-12.0 [facility] Comment on above: Performed By: #### C BC ####[facility] Wolrpclrip9578[address] [place], [place] [address]DrKianna Airam Tripathi NEUT # 4.7 103/ul Normal 1.4-6.5 [facility] Comment on above: Performed By: #### C BC ####[facility] Jdbcvifcgp242[address] [place], [place] [address]DrKianna Airam Tripathi Neutrophils/100 WBC (Bld) 65.2 % Normal 43.0-75.0 [facility] Comment on above: Performed By: #### C BC ####[facility] Cpjnkuhbdx3722[address] [place], [place] [address]DrKianna Airam Tripathi Platelet mean volume (Bld) [Entitic vol] 9.8 fL Normal 9.5-13.5 [facility] Comment on above: Performed By: #### C BC ####[facility] Gbjdukvquy0054[address] [place], [place] [address]DrKianna Airam Tripathi PLT 225 103/ul Normal 150-450 [facility] Comment on above: Performed By: #### C BC ####[facility] Bnujkecgfo[address] [place], [place] [id number] Airam Deuce RBC 3.13 106/ul Critically low 4.20-5.40 [facility] Comment on above: Performed By: #### C BC ####[facility] Rnzhtaxfyf7096[address] [place], [place] [address]DrKianna Tripathi WBC 7.3 103/ul Normal 4.0-11.0 [facility] Comment on above: Performed By: #### C BC ####[facility] Cwgmyuqdto2590 [place] [address]Dr. Airam Tripathi PROF 14(COMP METB)on 023 Albumin [Mass/Vol] 3.0 g/dL Critically low 3.4-5.0 [facility] Comment on above: Performed By: #### C MP ####[facility] Mjpzslbvku1590[address] [place], [place] [address]Dr. Airam Tripathi Albumin/Globulin [Mass ratio] 1.1 {ratio} Normal [facility] Comment on above: Performed By: #### C MP ####[facility] Fhpzrqyxsb0826[address] [place], [place] [address]Dr. Airam Tripathi ALP [Catalytic activity/Vol] 132 U/L Critically high 46-116 [facility] Comment on above: Performed By: #### C MP ####[facility] Tztpdaxxht4936[address] [place], [place] [address]Dr. Airam Tripathi ALT [Catalytic activity/Vol] 20 U/L Normal 14-59 [facility] Comment on above: Performed By: #### C MP ####[facility] Vijqzmagzz3720[address] [place], [place] [address]Dr. Airam Tripathi Anion gap [Moles/Vol] 9.5 mmol/L Normal [facility] Comment on above: Performed By: #### C MP ####[facility] Yjjxtbbrde006[address] [place], [place] [address]Dr. Airam Tripathi AST [Catalytic activity/Vol] 25 U/L Normal 15-37 [facility] Comment on above: Performed By: #### C MP ####[facility] Gtktyagjou8517[address] [place], [place] [address]Dr. Airam Tripathi Bilirubin [Mass/Vol] 0.2 mg/dL Normal 0.2-1.0 [facility] Comment on above: Performed By: #### C MP ####[facility] Uesyvodeje3684[address] [place], [place] [address]Dr. Airam Tripathi Calcium [Mass/Vol] 7.9 mg/dL Critically low 8.5-10.1 [facility] Comment on above: Performed By: #### C MP ####[facility] Txolvjfbwj8167 [place] [address]Dr. Airam Tripathi Chloride [Moles/Vol] 97 mmol/L Critically low 98-107 [facility] Comment on above: Performed By: #### C MP ####[facility] Bsanghfvfo7584[address] [place], [place] [address]Dr. Airam Tripathi CO2 [Moles/Vol] 27.3 mmol/L Normal 21.0-32.0 [facility] Comment on above: Performed By: #### C MP ####[facility] Mmkqsnuthn460[address] [place], [place] [address]Dr. Airam Tripathi Creatinine [Mass/Vol] 1.58 mg/dL Critically high 0.55-1.02 [facility] Comment on above: Performed By: #### C MP ####[facility] Fpvcuhiecd475[address] [place], [place] [address]Dr. Airam Tripathi EGFR-AF [place] 40 mL/min/1.73m2 Critically low >=60 [facility] Comment on above: Performed By: #### C MP ####[facility] Whpltlwlik7636[address] [place], [place] [address]Dr. Airam Tripathi EGFR-NON AF [place] 33 mL/min/1.73m2 Critically low >=60 [facility] Comment on above: Performed By: #### C MP ####[facility] Bgiycnhiys4276[address] [place], [place] [address]Dr. Airam Tripathi Globulin (S) [Mass/Vol] 2.8 g/dL Normal [facility] Comment on above: Performed By: #### C MP ####[facility] Hadntpjuer454[address] [place], [place] [address]Dr. Airam Tripathi Glucose [Mass/Vol] 111 mg/dL Critically high 74-106 T [facility] Comment on above: Performed By: #### C MP ####[facility] Tsuzwwtnud[address] [place], [place] [address]Dr. Airam Triptahi Potassium [Moles/Vol] 4.8 mmol/L Normal 3.5-5.1 [facility] Comment on above: Performed By: #### C MP ####[facility] Omqswxofoy[address] [place], [place] [address]Dr. Airam Tripathi Protein [Mass/Vol] 5.8 g/dL Critically low 6.4-8.2 [facility] Comment on above: Performed By: #### C MP ####[facility] Xpkgxhmiin[address] [place], [place] [address]Dr. Airam Deuce Sodium [Moles/Vol] 129 mmol/L Critically low 136-145 [facility] Comment on above: Performed By: #### C MP ####[facility] Olqdjccoiy5250[address] [place], [place] [address]Dr. Selenaneil Deuce Urea nitrogen [Mass/Vol] 44.0 mg/dL Critically high 7.0-18.0 [facility] Comment on above: Performed By: #### C MP ####[facility] Hvpqzfdiou96[address] [place], [place] [address]Dr. Selenaneil Tripathi Urea nitrogen/Creatinine [Mass ratio] 27.8 mg/mg Normal [facility] Comment on above: Performed By: #### C MP ####[facility] Driodymyod3[address] [place], [place] [address]DrKianna Airam Deuce OSMOLALITYon 08-28-2022 Osmolality [Osmolality] 288 mosm/kg Normal 275-295 [facility] Comment on above: Performed By: #### O SMO ####[facility] Sftjpjwbos[address] [place], [place] [address]Dr. Airam Deuce CBC AUTO DIFFon 08-25-2022 BASO # 0.0 103/ul Normal 0.0-0.1 [facility] Comment on above: Performed By: #### C BC ####[facility] Wnnhysaqvd26[address] [place], [place] [address]Dr. Airam Deuce Basophils/100 WBC (Bld) 0.5 % Normal 0.2-2.0 [facility] Comment on above: Performed By: #### C BC ####[facility] Ohgvyhsnox[address] [place], [place] [address]Dr. Airam Tripathi EO # 0.4 103/ul Normal 0.0-0.7 [facility] Comment on above: Performed By: #### C BC ####[facility] [address] [place] [address]Dr. Airam Tripathi Eosinophils/100 WBC (Bld) 4.8 % Normal 0.9-7.0 [facility] Comment on above: Performed By: #### C BC ####[facility] [address]fmissjfk9435 [place] [address]Dr. Airam Tripathi Erythrocyte distribution width (RBC) [Ratio] 14.2 % Normal 11.0-15.0 [facility] Comment on above: Performed By: #### C BC ####[facility] Qrkgbgxcao6261 [place] [address]Dr. Airam Tripathi Hematocrit (Bld) [Volume fraction] 31.1 % Critically low 36.0-48.0 [facility] Comment on above: Performed By: #### C BC ####[facility] Jqluatmkua0073 [place] [address]Dr. Airam Tripathi Hemoglobin (Bld) [Mass/Vol] 9.7 g/dL Critically low 12.0-16.0 [facility] Comment on above: Performed By: #### C BC ####[facility] Nrhoaozrzj4138 [place] [address]Dr. Airam Tripathi IG # 0.05 10e3/ul Critically high 0.00-0.03 [facility] Comment on above: Performed By: #### C BC ####[facility] Sczqfojurh4714 [place] [address]Dr. Airam Tripathi IG % 0.6 % Critically high 0.0-0.5 [facility] Comment on above: Performed By: #### C BC ####[facility] Frujmzupte6187 [place] [address]Dr. Airam Tripathi LYMPH # 1.7 103/ul Normal 1.2-3.8 [facility] Comment on above: Performed By: #### C BC ####[facility] Bugtgpblux9935 [place] [address]Dr. Airam Deuce Lymphocytes/100 WBC (Bld) 19.6 % Critically low 20.5-60.0 [facility] Comment on above: Performed By: #### C BC ####[facility] Qumumfthwa[address]019 [place] [address]Dr. Selenaneil Tripathi MANUAL DIFF REQ NO Normal [facility] Comment on above: Performed By: #### C BC ####[facility] Aetocehdzp0491 [place] [address]Dr. Airam Deuce MCH (RBC) [Entitic mass] 28.2 pg Normal 26.7-34.0 [facility] Comment on above: Performed By: #### C BC ####[facility] Gjrrqjjvlx[address] [place], [place] [address]Dr. Airam Deuce MCHC (RBC) [Mass/Vol] 31.2 g/dL Normal 29.9-35.2 [facility] Comment on above: Performed By: #### C BC ####[facility] Kpzucxismd5[address] [place], [place] [address]Dr. Selenaneil Tripathi MCV (RBC) [Entitic vol] 90.4 fL Normal 81.0-99.0 [facility] Comment on above: Performed By: #### C BC ####[facility] Aqfbzegven988[address] [place], [place] [address]Dr. Airam Tripathi MONO # 0.6 103/ul Normal 0.3-0.8 [facility] Comment on above: Performed By: #### C BC ####[facility] Lwpygkkaoe5[address] [place], [place] [address]Dr. Selenaneil Tripathi Monocytes/100 WBC (Bld) 7.4 % Normal 1.7-12.0 [facility] Comment on above: Performed By: #### C BC ####[facility] Hxatgqfwqa495[address] [place], [place] [address]Dr. Airam Tripathi NEUT # 5.8 103/ul Normal 1.4-6.5 [facility] Comment on above: Performed By: #### C BC ####[facility] Vytvtgrrlg6376 [place] [address]Dr. Airam Tripathi Neutrophils/100 WBC (Bld) 67.1 % Normal 43.0-75.0 [facility] Comment on above: Performed By: #### C BC ####[facility] Vqdsilizcz4193 [place] [address]Dr. Airam Tripathi Platelet mean volume (Bld) [Entitic vol] 9.9 fL Normal 9.5-13.5 [facility] Comment on above: Performed By: #### C BC ####[facility] Rvlfeuxqlb446[address] [place], [place] [address]Dr. Airam Tripathi PLT 320 103/ul Normal 150-450 [facility] Comment on above: Performed By: #### C BC ####[facility] Fvuqigqxsd8060[address] [place], [place] [address]Dr. Airam Tripathi RBC 3.44 106/ul Critically low 4.20-5.40 [facility] Comment on above: Performed By: #### C BC ####[facility] Vbtepvdczy[address] [place], [place] [address]Dr. Selenaneil Deuce WBC 8.6 103/ul Normal 4.0-11.0 [facility] Comment on above: Performed By: #### C BC ####[facility] Tkqkcunpvf2918[address] [place], [place] [address]Dr. Airam Tripathi PROF 14(COMP METB)on 023 Albumin [Mass/Vol] 3.4 g/dL Normal 3.4-5.0 [facility] Comment on above: Performed By: #### C MP ####[facility] Buwhuaebiy1156[address] [place], [place] [address]Dr. Airam Tripathi Albumin/Globulin [Mass ratio] 1.1 {ratio} Normal [facility] Comment on above: Performed By: #### C MP ####[facility] Sstnvnaqce35[address] [place], [place] [address]Dr. Selenaneil Deuce ALP [Catalytic activity/Vol] 170 U/L Critically high 46-116 [facility] Comment on above: Performed By: #### C MP ####[facility] L[address]omlntfu2766 [place] [address]Dr. Airam Tripathi ALT [Catalytic activity/Vol] 22 U/L Normal 14-59 [facility] Comment on above: Performed By: #### C MP ####[facility] Cposxkswos6450 [place] [address]Dr. Airam Tripathi Anion gap [Moles/Vol] 14.4 mmol/L Normal [facility] Comment on above: Performed By: #### C MP ####[facility] Eugoaahiph3450[address] [place], [place] [address]Dr. Airam Tripathi AST [Catalytic activity/Vol] 25 U/L Normal 15-37 [facility] Comment on above: Performed By: #### C MP ####[facility] Birfrgmvka5899[address] [place], [place] [address]Dr. Airam Tripathi Bilirubin [Mass/Vol] 0.3 mg/dL Normal 0.2-1.0 [facility] Comment on above: Performed By: #### C MP ####[facility] Ompfcyswof5264[address] [place], [place] [address]Dr. Airam Tripathi Calcium [Mass/Vol] 8.2 mg/dL Critically low 8.5-10.1 [facility] Comment on above: Performed By: #### C MP ####[facility] Vkqhjwcecg9[address] [place], [place] [address]Dr. Airam Tripathi Chloride [Moles/Vol] 98 mmol/L Normal 98-107 [facility] Comment on above: Performed By: #### C MP ####[facility] Wtabxfgfnt1620[address] [place], [place] [address]Dr. Airam Tripathi CO2 [Moles/Vol] 27.8 mmol/L Normal 21.0-32.0 [facility] Comment on above: Performed By: #### C MP ####[facility] Ezzzwjerow9[address] [place], [place] [address]Dr. Airam Tripathi Creatinine [Mass/Vol] 1.82 mg/dL Critically high 0.55-1.02 [facility] Comment on above: Performed By: #### C MP ####[facility] Ztcyuehpky3284[address] [place], [place] [address]Dr. Airam Deuce EGFR-AF [place] 34 mL/min/1.73m2 Critically low >=60 [facility] Comment on above: Performed By: #### C MP ####[facility] [address]fkty7[address] [place] [address]Dr. Airam Deuce EGFR-NON AF [place] 28 mL/min/1.73m2 Critically low >=60 [facility] Comment on above: Performed By: #### C MP ####[facility] Eiqeyhxhty0939 [place] [address]Dr. Airam Deuce Globulin (S) [Mass/Vol] 3.2 g/dL Normal [facility] Comment on above: Performed By: #### C MP ####[facility] Iayclxpfak9059 [place] [address]Dr. Airam Tripathi Glucose [Mass/Vol] 78 mg/dL Normal 74-106 [facility] Comment on above: Performed By: #### C MP ####[facility] Eszfmjbsnl7420 [place] [address]Dr. Selenaneil Deuce Potassium [Moles/Vol] 5.2 mmol/L Critically high 3.5-5.1 [facility] Comment on above: Performed By: #### C MP ####[facility] Oodvgmlmym5764[address] [place], [place] [address]Dr. Airam Tripathi Protein [Mass/Vol] 6.6 g/dL Normal 6.4-8.2 [facility] Comment on above: Performed By: #### C MP ####[facility] Yqdpktzodp3334 [place] [address]Dr. Airam Tripathi Sodium [Moles/Vol] 135 mmol/L Critically low 136-145 [facility] Comment on above: Performed By: #### C MP ####[facility] Rfwcxvjltt3648 [place] [address]Dr. Selenaneil Deuce Urea nitrogen [Mass/Vol] 51.0 mg/dL Critically high 7.0-18.0 [facility] Comment on above: Performed By: #### C MP ####[facility] Wdnfoptzdp39[address] [place], [place] [address]Dr. Airam Tripathi Urea nitrogen/Creatinine [Mass ratio] 28.0 mg/mg Normal [facility] Comment on above: Performed By: #### C MP ####[facility] Yqulpaktzu5[address] [place], [place] [address]Dr. Airam Tripathi OSMOLALITYon 08-18-2022 Osmolality [Osmolality] 280 mosm/kg Normal 275-295 [facility] Comment on above: Performed By: #### O SMO ####[facility] Gonssdyvil[address] [place], [place] [address]Dr. Airam Tripathi CBC AUTO DIFFon 08-16-2022 BASO # 0.0 103/ul Normal 0.0-0.1 [facility] Comment on above: Performed By: #### C BC ####[facility] Qfbwvpdyds20[address] [place], [place] [address]Dr. Airam Deuce Basophils/100 WBC (Bld) 0.2 % Normal 0.2-2.0 [facility] Comment on above: Performed By: #### C BC ####[facility] Vmezswptdg86[address] [place], [place] [address]Dr. Airam Tripathi EO # 0.2 103/ul Normal 0.0-0.7 [facility] Comment on above: Performed By: #### C BC ####[facility] Zfgjdgsfca5[address] [place], [place] [address]Dr. Airam Tripathi Eosinophils/100 WBC (Bld) 2.4 % Normal 0.9-7.0 [facility] Comment on above: Performed By: #### C BC ####[facility] Yrrfkrdbyp[address] [place], [place] [address]Dr. Airam Tripathi Erythrocyte distribution width (RBC) [Ratio] 14.2 % Normal 11.0-15.0 [facility] Comment on above: Performed By: #### C BC ####[facility] Chrtqhzlon50[address] [place], [place] [address]Dr. Airam Tripathi Hematocrit (Bld) [Volume fraction] 30.1 % Critically low 36.0-48.0 [facility] Comment on above: Performed By: #### C BC ####[facility] [address]iskn[address] [place] [id number]. Airam Tripathi Hemoglobin (Bld) [Mass/Vol] 9.2 g/dL Critically low 12.0-16.0 [facility] Comment on above: Performed By: #### C BC ####[facility] Sqtvrwtcyw2535 [place] [address]Dr. Airam Tripathi IG # 0.04 10e3/ul Critically high 0.00-0.03 [facility] Comment on above: Performed By: #### C BC ####[facility] Mjufynhjex9446 [place] [address]Dr. Airam Tripathi IG % 0.4 % Normal 0.0-0.5 [facility] Comment on above: Performed By: #### C BC ####[facility] Xzlkjimheo2414 [place] [address]Dr. Airam Tripathi LYMPH # 0.9 103/ul Critically low 1.2-3.8 [facility] Comment on above: Performed By: #### C BC ####[facility] Jnthcrizvk2164 [place] [address]Dr. Airam Tripathi Lymphocytes/100 WBC (Bld) 9.3 % Critically low 20.5-60.0 [facility] Comment on above: Performed By: #### C BC ####[facility] Uomtoptvka5581 [place] [address]Dr. Airam Tripathi MANUAL DIFF REQ NO Normal [facility] Comment on above: Performed By: #### C BC ####[facility] Cupgdputhm0165[address] [place], [place] [address]Dr. Airam Tripathi MCH (RBC) [Entitic mass] 27.7 pg Normal 26.7-34.0 [facility] Comment on above: Performed By: #### C BC ####[facility] Eijcmifrmb2069[address] [place], [place] [address]Dr. Airam Tripathi MCHC (RBC) [Mass/Vol] 30.6 g/dL Normal 29.9-35.2 [facility] Comment on above: Performed By: #### C BC ####[facility] Geizyosmlw8924 [place] [id number]. Airam Tripathi MCV (RBC) [Entitic vol] 90.7 fL Normal 81.0-99.0 [facility] Comment on above: Performed By: #### C BC ####[facility] Mgbbuwdhny6566 [place] [address]Dr. Airam Tripathi MONO # 0.5 103/ul Normal 0.3-0.8 [facility] Comment on above: Performed By: #### C BC ####[facility] Rmnlakmogz1885 [place] [address]Dr. Airam Tripathi Monocytes/100 WBC (Bld) 5.3 % Normal 1.7-12.0 [facility] Comment on above: Performed By: #### C BC ####[facility] Kaishjokyd9934[address] [place], [place] [address]Dr. Airam Tripathi NEUT # 7.7 103/ul Critically high 1.4-6.5 [facility] Comment on above: Performed By: #### C BC ####[facility] Rayrocnsbx[address] [place], [place] [address]Dr. Airam Tripathi Neutrophils/100 WBC (Bld) 82.4 % Critically high 43.0-75.0 [facility] Comment on above: Performed By: #### C BC ####[facility] Oitgyvybhn3576[address] [place], [place] [address]Dr. Airam Tripathi Platelet mean volume (Bld) [Entitic vol] 9.8 fL Normal 9.5-13.5 [facility] Comment on above: Performed By: #### C BC ####[facility] Qwaakblndi[address] [place], [place] [address]Dr. Airam Tripathi PLT 285 103/ul Normal 150-450 [facility] Comment on above: Performed By: #### C BC ####[facility] Comnqafbbr[address] [place], [place] [address]Dr. Airam Tripathi RBC 3.32 106/ul Critically low 4.20-5.40 [facility] Comment on above: Performed By: #### C BC ####[facility] Bbtsbyigev5066 [place] [address]Dr. Airam Tripathi WBC 9.4 103/ul Normal 4.0-11.0 [facility] Comment on above: Performed By: #### C BC ####[facility] Uizzwzaeca2127 [place] [address]Dr. Airam Tripathi MRI WRIST RT WO CONon 2022 MRI WRIST RT WO CON Normal [facility] PROF 14(COMP METB)on 023 Albumin [Mass/Vol] 3.1 g/dL Critically low 3.4-5.0 [facility] Comment on above: Performed By: #### C MP ####[facility] Orxkbrtkmw12[address] [place], [place] [address]Dr. Airam Tripathi Albumin/Globulin [Mass ratio] 0.9 {ratio} Normal [facility] Comment on above: Performed By: #### C MP ####[facility] Sculakfrym04[address] [place], [place] [address]Dr. Airam Tripathi ALP [Catalytic activity/Vol] 162 U/L Critically high 46-116 [facility] Comment on above: Performed By: #### C MP ####[facility] Dddgzshtna5691 [place] [address]Dr. Airam Tripathi ALT [Catalytic activity/Vol] 19 U/L Normal 14-59 [facility] Comment on above: Performed By: #### C MP ####[facility] Omqogkiqmx8081 [place] [address]Dr. Airam Tripathi Anion gap [Moles/Vol] 13.0 mmol/L Normal [facility] Comment on above: Performed By: #### C MP ####[facility] Jjyvwkcpce7077 [place] [address]Dr. Airam Tripathi AST [Catalytic activity/Vol] 21 U/L Normal 15-37 [facility] Comment on above: Performed By: #### C MP ####[facility] Arplmdsvfq2426 [place] [address]Dr. Airam Tripathi Bilirubin [Mass/Vol] 0.3 mg/dL Normal 0.2-1.0 [facility] Comment on above: Performed By: #### C MP ####[facility] Vwsutqxyqg7790 [place] [address]Dr. Airam Tripathi Calcium [Mass/Vol] 8.4 mg/dL Critically low 8.5-10.1 [facility] Comment on above: Performed By: #### C MP ####[facility] Jvhomlkbro4314 [place] [address]Dr. Airam Tripathi Chloride [Moles/Vol] 103 mmol/L Normal 98-107 [facility] Comment on above: Performed By: #### C MP ####[facility] Ofcwlbzbcf7452 [place] [address]Dr. Airam Tripathi CO2 [Moles/Vol] 23.3 mmol/L Normal 21.0-32.0 [facility] Comment on above: Performed By: #### C MP ####[facility] Oylwzmkfcl[address] [place], [place] [address]Dr. Airam Tripathi Creatinine [Mass/Vol] 1.02 mg/dL Normal 0.55-1.02 [facility] Comment on above: Performed By: #### C MP ####[facility] Grkuqmfzob6[address] [place], [place] [address]Dr. Airam Tripathi EGFR-AF [place] >60 Normal >=60 [facility] Comment on above: Performed By: #### C MP ####[facility] Kfqrtoncpj7366 [place] [address]Dr. Airam Tripathi EGFR-NON AF [place] 55 mL/min/1.73m2 Critically low >=60 [facility] Comment on above: Performed By: #### C MP ####[facility] Ruwyntfqwy5467 [place] [address]Dr. Airam Tripathi Globulin (S) [Mass/Vol] 3.4 g/dL Normal [facility] Comment on above: Performed By: #### C MP ####[facility] Lpytwzzbvr1241 [place] [address]Dr. Airam Tripathi Glucose [Mass/Vol] 88 mg/dL Normal 74-106 [facility] Comment on above: Performed By: #### C MP ####[facility] Oqipwatmgt8416 [place] [id number]. Airam Tripathi Potassium [Moles/Vol] 4.3 mmol/L Normal 3.5-5.1 [facility] Comment on above: Performed By: #### C MP ####[facility] Exiotfnlgw7170 [place] [address]Dr. Airam Tripathi Protein [Mass/Vol] 6.5 g/dL Normal 6.4-8.2 [facility] Comment on above: Performed By: #### C MP ####[facility] Rjoyvwgcjo[address] [place], [place] [address]Dr. Airam Tripathi Sodium [Moles/Vol] 135 mmol/L Critically low 136-145 [facility] Comment on above: Performed By: #### C MP ####[facility] Arxfanpckn65[address] [place], [place] [address]Dr. Airam Tripathi Urea nitrogen [Mass/Vol] 27.0 mg/dL Critically high 7.0-18.0 [facility] Comment on above: Performed By: #### C MP ####[facility] Ewhpldiafg2234[address] [place], [place] [address]Dr. Airam Tripathi Urea nitrogen/Creatinine [Mass ratio] 26.5 mg/mg Normal [facility] Comment on above: Performed By: #### C MP ####[facility] Xaznbdpknz4447[address] [place], [place] [address]Dr. Airam Tripathi CT HEAD WO CONon 08-06-2022 CT HEAD WO CON Normal [facility] CT LSPINE WO CONon 3 CT LSPINE WO CON Normal [facility] XR HAND RT MIN 3Von 08-06-19 23 XR HAND RT MIN 3V Normal [facility] XR KNEE LT 4V or >on 023 XR KNEE LT 4V or > Normal [facility] XR WRIST RT MIN 3 Von 2022 XR WRIST RT MIN 3 V Normal [facility] OSMOLALITYon 08-05-2022 Osmolality [Osmolality] 282 mosm/kg Normal 275-295 [facility] Comment on above: Performed By: #### O SMO ####[facility] Iklrsahwrv6672 [place] [phone]. Airam Tripathi CBC AUTO DIFFon 08-03-2022 BASO # 0.0 103/ul Normal 0.0-0.1 [facility] Comment on above: Performed By: #### C BC ####[facility] Miovkriffj7588 [place] [phone]. Selenaneil Tripathi Basophils/100 WBC (Bld) 0.5 % Normal 0.2-2.0 [facility] Comment on above: Performed By: #### C BC ####[facility] Jpymxughdv7239[address] [place], [place] [address]Dr. Airam Deuce EO # 0.5 103/ul Normal 0.0-0.7 [facility] Comment on above: Performed By: #### C BC ####[facility] Cxxvbvthca9780[address] [place], [place] [address]Dr. Selenaneil Tripathi Eosinophils/100 WBC (Bld) 5.2 % Normal 0.9-7.0 [facility] Comment on above: Performed By: #### C BC ####[facility] Chohdrucbf4[address] [place], [place] [address]Dr. Airam Tripathi Erythrocyte distribution width (RBC) [Ratio] 14.3 % Normal 11.0-15.0 [facility] Comment on above: Performed By: #### C BC ####[facility] Mnjqvbwilf758[address] [place], [place] [address]Dr. Airam Tripathi Hematocrit (Bld) [Volume fraction] 31.4 % Critically low 36.0-48.0 [facility] Comment on above: Performed By: #### C BC ####[facility] Wzsroeclla6760[address] [place], [place] [address]Dr. Airam Tripathi Hemoglobin (Bld) [Mass/Vol] 9.5 g/dL Critically low 12.0-16.0 [facility] Comment on above: Performed By: #### C BC ####[facility] Uvkuruzhut4[address] [place], [place] [address]Dr. Airam Tripathi IG # 0.05 10e3/ul Critically high 0.00-0.03 [facility] Comment on above: Performed By: #### C BC ####[facility] Mtmhvxqysq6823 [place] [address]Dr. Airam Tripathi IG % 0.6 % Critically high 0.0-0.5 [facility] Comment on above: Performed By: #### C BC ####[facility] Hltdigtnxd2201 [place] [address]Dr. Airam Deuce LYMPH # 1.5 103/ul Normal 1.2-3.8 [facility] Comment on above: Performed By: #### C BC ####[facility] Unpzehbkcx7[address] [place], [place] [address]Dr. Selenaneil Tripathi Lymphocytes/100 WBC (Bld) 17.6 % Critically low 20.5-60.0 [facility] Comment on above: Performed By: #### C BC ####[facility] Wyocnslgtk[address] [place], [place] [address]Dr. Selenaneil Tripathi MANUAL DIFF REQ NO Normal [facility] Comment on above: Performed By: #### C BC ####[facility] Sfslnihsxk50[address] [place], [place] [address]Dr. Airam Deuce MCH (RBC) [Entitic mass] 29.0 pg Normal 26.7-34.0 [facility] Comment on above: Performed By: #### C BC ####[facility] Icscenoqjb213[address] [place], [place] [address]Dr. Airam Tripathi MCHC (RBC) [Mass/Vol] 30.3 g/dL Normal 29.9-35.2 [facility] Comment on above: Performed By: #### C BC ####[facility] Grdfglxleq475[address] [place], [place] [address]DrKianna Airam Deuce MCV (RBC) [Entitic vol] 95.7 fL Normal 81.0-99.0 [facility] Comment on above: Performed By: #### C BC ####[facility] [address]mhp[address] [address] [place], [place] [address]DrKianna Tripathi MONO # 0.7 103/ul Normal 0.3-0.8 [facility] Comment on above: Performed By: #### C BC ####[facility] Kfdqhdsreq08[address] [place] [phone]. Airam Tripathi Monocytes/100 WBC (Bld) 8.5 % Normal 1.7-12.0 [facility] Comment on above: Performed By: #### C BC ####[facility] Bbkibfcedh4640 [place] [phone]. Airam Tripathi NEUT # 5.8 103/ul Normal 1.4-6.5 [facility] Comment on above: Performed By: #### C BC ####[facility] Kwyzrjuied0269 [place] [phone]. Airam Tripathi Neutrophils/100 WBC (Bld) 67.6 % Normal 43.0-75.0 [facility] Comment on above: Performed By: #### C BC ####[facility] Gcwhprjexc1321 [place] [phone]. Airam Tripathi Platelet mean volume (Bld) [Entitic vol] 9.5 fL Normal 9.5-13.5 [facility] Comment on above: Performed By: #### C BC ####[facility] Aehnvsqdnp3314 [place] [phone]. Airam Tripathi PLT 292 103/ul Normal 150-450 [facility] Comment on above: Performed By: #### C BC ####[facility] Guicvvhfbf1349 [place] [phone]. Airam Tripathi RBC 3.28 106/ul Critically low 4.20-5.40 [facility] Comment on above: Performed By: #### C BC ####[facility] Ksvyjxidzg2123 [place] [phone]. Airam Tripathi WBC 8.6 103/ul Normal 4.0-11.0 [facility] Comment on above: Performed By: #### C BC ####[facility] Rxsyymybfc5993 [place] [phone] Tripathi PROF 14(COMP METB)on 023 Albumin [Mass/Vol] 3.0 g/dL Critically low 3.4-5.0 [facility] Comment on above: Performed By: #### C MP ####[facility] Qmxcvqezaj2764 [place] [address]Dr. Airam Deuce Albumin/Globulin [Mass ratio] 0.9 {ratio} Normal [facility] Comment on above: Performed By: #### C MP ####[facility] Mxcranydth9713 [place] [address]Dr. Aiarm Deuce ALP [Catalytic activity/Vol] 184 U/L Critically high 46-116 [facility] Comment on above: Performed By: #### C MP ####[facility] Aenpdgddib[address] [place], [place] [address]Dr. Airam Deuce ALT [Catalytic activity/Vol] 18 U/L Normal 14-59 [facility] Comment on above: Performed By: #### C MP ####[facility] Aynjlxalvm7924[address] [place], [place] [address]Dr. Airam Tripathi Anion gap [Moles/Vol] 11.2 mmol/L Normal [facility] Comment on above: Performed By: #### C MP ####[facility] Zdjnosbczd4820[address] [place], [place] [address]Dr. Airam Deuce AST [Catalytic activity/Vol] 19 U/L Normal 15-37 [facility] Comment on above: Performed By: #### C MP ####[facility] Oicddkzoup78[address] [place], [place] [address]Dr. Airam Tripathi Bilirubin [Mass/Vol] 0.3 mg/dL Normal 0.2-1.0 [facility] Comment on above: Performed By: #### C MP ####[facility] Zrsltszstx58[address] [place], [place] [address]Dr. Airam Tripathi Calcium [Mass/Vol] 8.8 mg/dL Normal 8.5-10.1 [facility] Comment on above: Performed By: #### C MP ####[facility] Mvslpcfrcf05[address] [place], [place] [address]Dr. Airam Tripathi Chloride [Moles/Vol] 101 mmol/L Normal 98-107 [facility] Comment on above: Performed By: #### C MP ####[facility] Yjwbnmyszs[address] [place] [phone]. Airam Tripathi CO2 [Moles/Vol] 25.4 mmol/L Normal 21.0-32.0 [facility] Comment on above: Performed By: #### C MP ####[facility] Dnshbgfzfu5385 [place] [phone]. Airam Tripathi Creatinine [Mass/Vol] 1.05 mg/dL Critically high 0.55-1.02 [facility] Comment on above: Performed By: #### C MP ####[facility] Aizaxkculr0212 [place] [address]Dr. Airam Tripathi EGFR-AF [place] >60 Normal >=60 [facility] Comment on above: Performed By: #### C MP ####[facility] Vgkghalbjl9766[address] [place], [place] [address]Dr. Airam Tripathi EGFR-NON AF [place] 53 mL/min/1.73m2 Critically low >=60 [facility] Comment on above: Performed By: #### C MP ####[facility] Xgtgijvhlg[address] [place] [address]Dr. Airam Tripathi Globulin (S) [Mass/Vol] 3.4 g/dL Normal [facility] Comment on above: Performed By: #### C MP ####[facility] Mpdtkenzmq0867[address] [place], [place] [address]Dr. Airam Tripathi Glucose [Mass/Vol] 78 mg/dL Normal 74-106 [facility] Comment on above: Performed By: #### C MP ####[facility] Rytwsrjilz249[address] [place], [place] [address]Dr. Airam Tripathi Potassium [Moles/Vol] 4.6 mmol/L Normal 3.5-5.1 [facility] Comment on above: Performed By: #### C MP ####[facility] Mmqbvxcxbr8492 [place] [address]Dr. Airam Tripathi Protein [Mass/Vol] 6.4 g/dL Normal 6.4-8.2 [facility] Comment on above: Performed By: #### C MP ####[facility] Iugetllrwh5289 [place] [phone]. Airam Tripathi Sodium [Moles/Vol] 133 mmol/L Critically low 136-145 [facility] Comment on above: Performed By: #### C MP ####[facility] Txecqwbizb2325[address] [place], [place] [address]Dr. Airam Tripathi Urea nitrogen [Mass/Vol] 26.0 mg/dL Critically high 7.0-18.0 [facility] Comment on above: Performed By: #### C MP ####[facility] Yugpayqiuh0406[address] [place], [place] [address]Dr. Airam Tripathi Urea nitrogen/Creatinine [Mass ratio] 24.8 mg/mg Normal [facility] Comment on above: Performed By: #### C MP ####[facility] Zwpajnpjcx99022[address] [place], [place] [address]Dr. Airam Tripathi OSMOLALITYon 07-29-2022 Osmolality [Osmolality] 287 mosm/kg Normal 275-295 [facility] Comment on above: Performed By: #### O SMO ####[facility] Khapjnwzaj4169[address] [place], [place] [address]Dr. Airam Tripathi CBC AUTO DIFFon 07-27-2022 BASO # 0.0 103/ul Normal 0.0-0.1 [facility] Comment on above: Performed By: #### C BC ####[facility] Ndpigkomeg7[address] [place] [address]Dr. Airam Deuce Basophils/100 WBC (Bld) 0.4 % Normal 0.2-2.0 [facility] Comment on above: Performed By: #### C BC ####[facility] Fxeneypmyk7522[address] [place], [place] [address]Dr. Airam Deuce EO # 0.2 103/ul Normal 0.0-0.7 [facility] Comment on above: Performed By: #### C BC ####[facility] Jdkdbrmurs1732[address] [place], [place] [address]Dr. Airam Deuce Eosinophils/100 WBC (Bld) 2.6 % Normal 0.9-7.0 [facility] Comment on above: Performed By: #### C BC ####[facility] Yualivqmqr1909[address] [place], [place] [address]Dr. Airam Tripathi Erythrocyte distribution width (RBC) [Ratio] 14.2 % Normal 11.0-15.0 [facility] Comment on above: Performed By: #### C BC ####[facility] Sskrislnba649[address] [place], [place] [address]Dr. Airam Tripathi Hematocrit (Bld) [Volume fraction] 31.3 % Critically low 36.0-48.0 [facility] Comment on above: Performed By: #### C BC ####[facility] Iusjitviss5[address] [place], [place] [address]Dr. Airam Tripathi Hemoglobin (Bld) [Mass/Vol] 9.3 g/dL Critically low 12.0-16.0 [facility] Comment on above: Performed By: #### C BC ####[facility] Dlqosowufz[address] [place], [place] [address]Dr. Airam Tripathi IG # 0.05 10e3/ul Critically high 0.00-0.03 [facility] Comment on above: Performed By: #### C BC ####[facility] Gzdswpoyvz8405[address] [place], [place] [address]Dr. Airam Tripathi IG % 0.7 % Critically high 0.0-0.5 [facility] Comment on above: Performed By: #### C BC ####[facility] Gsvnbzfvvm2515[address] [place], [place] [address]Dr. Airam Tripathi LYMPH # 1.0 103/ul Critically low 1.2-3.8 [facility] Comment on above: Performed By: #### C BC ####[facility] Uhjgqlcqir6909[address] [place], [place] [address]Dr. Airam Tripathi Lymphocytes/100 WBC (Bld) 13.4 % Critically low 20.5-60.0 [facility] Comment on above: Performed By: #### C BC ####[facility] Rioaasqcfv2468[address] [place], [place] [address]Dr. Airam Tripathi MANUAL DIFF REQ NO Normal [facility] Comment on above: Performed By: #### C BC ####[facility] Hlzknzsfwf8[address] [place] [phone]. Airam Deuce MCH (RBC) [Entitic mass] 28.8 pg Normal 26.7-34.0 [facility] Comment on above: Performed By: #### C BC ####[facility] Rcgqzivank4917 [place] [address]Dr. Airam Deuce MCHC (RBC) [Mass/Vol] 29.7 g/dL Critically low 29.9-35.2 [facility] Comment on above: Performed By: #### C BC ####[facility] Lmgrgzpjee8456 [place] [address]Dr. Airam Tripathi MCV (RBC) [Entitic vol] 96.9 fL Normal 81.0-99.0 [facility] Comment on above: Performed By: #### C BC ####[facility] Vohwmpayhu0320[address] [place], [place] [address]Dr. Airam Tripathi MONO # 0.5 103/ul Normal 0.3-0.8 [facility] Comment on above: Performed By: #### C BC ####[facility] Hfbrwhdwtk95[address] [place], [place] [address]Dr. Airam Tripathi Monocytes/100 WBC (Bld) 6.3 % Normal 1.7-12.0 [facility] Comment on above: Performed By: #### C BC ####[facility] Zskwpdoihn8126[address] [place], [place] [address]Dr. Airam Tripathi NEUT # 5.8 103/ul Normal 1.4-6.5 [facility] Comment on above: Performed By: #### C BC ####[facility] Lkvoeymwae8224[address] [place], [place] [address]Dr. Airam Tripathi Neutrophils/100 WBC (Bld) 76.6 % Critically high 43.0-75.0 [facility] Comment on above: Performed By: #### C BC ####[facility] Museacxths0922[address] [place], [place] [address]Dr. Airam Tripathi Platelet mean volume (Bld) [Entitic vol] 10.3 fL Normal 9.5-13.5 [facility] Comment on above: Performed By: #### C BC ####[facility] Vddcbjjycp1252 [place] [address]Dr. Selenaneil Deuce PLT 265 103/ul Normal 150-450 [facility] Comment on above: Performed By: #### C BC ####[facility] Szsmwripzu[address] [place] [phone]. Selenaneil Tripathi RBC 3.23 106/ul Critically low 4.20-5.40 [facility] Comment on above: Performed By: #### C BC ####[facility] Hhmdllxdfv8407 [place] [address]Dr. Selenaneil Deuce WBC 7.6 103/ul Normal 4.0-11.0 [facility] Comment on above: Performed By: #### C BC ####[facility] Vpqsmihyoe5668 [place] [address]Dr. Airam Tripathi PROF 14(COMP METB)on 023 Albumin [Mass/Vol] 2.9 g/dL Critically low 3.4-5.0 [facility] Comment on above: Performed By: #### C MP ####[facility] Wvbesasjfl0826[address] [place], [place] [address]Dr. Airam Tripathi Albumin/Globulin [Mass ratio] 0.8 {ratio} Normal [facility] Comment on above: Performed By: #### C MP ####[facility] Nszqilxctd3013 [place] [address]Dr. Airam Tripathi ALP [Catalytic activity/Vol] 175 U/L Critically high 46-116 [facility] Comment on above: Performed By: #### C MP ####[facility] Yyswpskvno1827 [place] [address]Dr. Airam Tripathi ALT [Catalytic activity/Vol] 24 U/L Normal 14-59 [facility] Comment on above: Performed By: #### C MP ####[facility] Ksitrojmgw0070 [place] [address]Dr. Airam Tripathi Anion gap [Moles/Vol] 14.3 mmol/L Normal [facility] Comment on above: Performed By: #### C MP ####[facility] Thtfdcgiyo6956 [place] [address]Dr. Airam Tripathi AST [Catalytic activity/Vol] 25 U/L Normal 15-37 [facility] Comment on above: Performed By: #### C MP ####[facility] Tvikwfvfcj0046 [place] [address]Dr. Airam Tripathi Bilirubin [Mass/Vol] 0.2 mg/dL Normal 0.2-1.0 [facility] Comment on above: Performed By: #### C MP ####[facility] Agipjvlrxg5598[address] [place], [place] [address]Dr. Airam Tripathi Calcium [Mass/Vol] 8.6 mg/dL Normal 8.5-10.1 [facility] Comment on above: Performed By: #### C MP ####[facility] Ynvsluijll770[address] [place], [place] [address]Dr. Airam Tripathi Chloride [Moles/Vol] 102 mmol/L Normal 98-107 [facility] Comment on above: Performed By: #### C MP ####[facility] Sizblqktnd075[address] [place], [place] [address]Dr. Airam Tripathi CO2 [Moles/Vol] 23.7 mmol/L Normal 21.0-32.0 [facility] Comment on above: Performed By: #### C MP ####[facility] Wnycbpxwrs9044[address] [place], [place] [address]Dr. Airam Tripathi Creatinine [Mass/Vol] 1.29 mg/dL Critically high 0.55-1.02 [facility] Comment on above: Performed By: #### C MP ####[facility] Ctlvuvqpnt2285[address] [place], [place] [address]Dr. Airam Tripathi EGFR-AF [place] 51 mL/min/1.73m2 Critically low >=60 [facility] Comment on above: Performed By: #### C MP ####[facility] Uuaeegwbiu2529[address] [place], [place] [address]Dr. Airam Deuce EGFR-NON AF [place] 42 mL/min/1.73m2 Critically low >=60 [facility] Comment on above: Performed By: #### C MP ####[facility] Ttwpwjwiap6741 [place] [address]Dr. Airam Tripathi Globulin (S) [Mass/Vol] 3.6 g/dL Normal [facility] Comment on above: Performed By: #### C MP ####[facility] Beghneecol8199 [place] [address]Dr. Airam Tripathi Glucose [Mass/Vol] 84 mg/dL Normal 74-106 [facility] Comment on above: Performed By: #### C MP ####[facility] Vgmcadhuvw8734[address] [place], [place] [address]Dr. Airam Deuce Potassium [Moles/Vol] 5.0 mmol/L Normal 3.5-5.1 [facility] Comment on above: Performed By: #### C MP ####[facility] Hhbpcvpzdw350[address] [place], [place] [address]Dr. Airam Tripathi Protein [Mass/Vol] 6.5 g/dL Normal 6.4-8.2 [facility] Comment on above: Performed By: #### C MP ####[facility] Qaljbcseek844323 [address] [place], [place] [address]Dr. Airam Deuce Sodium [Moles/Vol] 135 mmol/L Critically low 136-145 [facility] Comment on above: Performed By: #### C MP ####[facility] Uhqlgizqke063323 [address] [place], [place] [address]Dr. Selenaneil Deuce Urea nitrogen [Mass/Vol] 28.0 mg/dL Critically high 7.0-18.0 [facility] Comment on above: Performed By: #### C MP ####[facility] Stjghvmagi2177[address] [place], [place] [address]Dr. Selenaneil Deuce Urea nitrogen/Creatinine [Mass ratio] 21.7 mg/mg Normal [facility] Comment on above: Performed By: #### C MP ####[facility] Wwgsbmyacq8434[address] [place], [place] [address]Dr. Airam Tripathi XR LSPINE MIN 4 VIEWSon 02-0 XR LSPINE MIN 4 VIEWS Normal [facility] OSMOLALITYon 07-24-2022 Osmolality [Osmolality] 279 mosm/kg Normal 275-295 [facility] Comment on above: Performed By: #### O SMO ####[facility] Xuapdnaqsp366[address] [place], [place] [address]Dr. Airam Tripathi CBC AUTO DIFFon 07-21-2022 BASO # 0.0 103/ul Normal 0.0-0.1 [facility] Comment on above: Performed By: #### C BC ####[facility] Umjlvzxdfb7688[address] [place], [place] [address]Dr. Airam Tripathi Basophils/100 WBC (Bld) 0.4 % Normal 0.2-2.0 [facility] Comment on above: Performed By: #### C BC ####[facility] Btyrroxvhd1699[address] [place], [place] [address]Dr. Airam Tripathi EO # 0.2 103/ul Normal 0.0-0.7 [facility] Comment on above: Performed By: #### C BC ####[facility] Wwemqoeuyy5585[address] [place], [place] [address]Dr. Airam Tripathi Eosinophils/100 WBC (Bld) 2.3 % Normal 0.9-7.0 [facility] Comment on above: Performed By: #### C BC ####[facility] Nukvydcfxm295[address] [place], [place] [address]Dr. Airam Tripathi Erythrocyte distribution width (RBC) [Ratio] 13.6 % Normal 11.0-15.0 [facility] Comment on above: Performed By: #### C BC ####[facility] Eisrvgxsxd0348[address] [place], [place] [address]Dr. Airam Tripathi Hematocrit (Bld) [Volume fraction] 32.6 % Critically low 36.0-48.0 [facility] Comment on above: Performed By: #### C BC ####[facility] Flpdyuejba376[address] [place], [place] [address]Dr. Airam Tripathi Hemoglobin (Bld) [Mass/Vol] 9.5 g/dL Critically low 12.0-16.0 [facility] Comment on above: Performed By: #### C BC ####[facility] Iyuebilitn1113 [place] [phone]. Airam Tripathi IG # 0.03 10e3/ul Normal 0.00-0.03 [facility] Comment on above: Performed By: #### C BC ####[facility] Mamsrhdfft4957 [place] [address]Dr. Airam Tripathi IG % 0.4 % Normal 0.0-0.5 [facility] Comment on above: Performed By: #### C BC ####[facility] Svztmxuqal3194 [place] [address]Dr. Airam Deuce LYMPH # 1.4 103/ul Normal 1.2-3.8 [facility] Comment on above: Performed By: #### C BC ####[facility] Kgdqqwynmx1812 [place] [address]Dr. Airam Duece Lymphocytes/100 WBC (Bld) 18.2 % Critically low 20.5-60.0 [facility] Comment on above: Performed By: #### C BC ####[facility] Rchcawijgt6575 [place] [address]Dr. Airam Deuce MANUAL DIFF REQ NO Normal [facility] Comment on above: Performed By: #### C BC ####[facility] Bekrnrebkp4508 [place] [address]Dr. Airam Tripathi MCH (RBC) [Entitic mass] 29.5 pg Normal 26.7-34.0 [facility] Comment on above: Performed By: #### C BC ####[facility] Auksbbseyi5029 [place] [address]Dr. Airam Tripathi MCHC (RBC) [Mass/Vol] 29.1 g/dL Critically low 29.9-35.2 [facility] Comment on above: Performed By: #### C BC ####[facility] Spwtappwbz6403 [place] [address]DrKianna Airam Tripathi MCV (RBC) [Entitic vol] 101.2 fL Critically high 81.0-99.0 [facility] Comment on above: Performed By: #### C BC ####[facility] Ifpixtbbmx7182 [place] [address]Dr. Airam Tripathi MONO # 0.6 103/ul Normal 0.3-0.8 [facility] Comment on above: Performed By: #### C BC ####[facility] Jngoqdubem8969 [place] [address]Dr. Airam Tripathi Monocytes/100 WBC (Bld) 7.9 % Normal 1.7-12.0 [facility] Comment on above: Performed By: #### C BC ####[facility] Khfnxdzwsc4020[address] [place], [place] [address]Dr. Airam Tripathi NEUT # 5.5 103/ul Normal 1.4-6.5 [facility] Comment on above: Performed By: #### C BC ####[facility] Oeqnlzvjef215[address] [place], [place] [address]Dr. Airam Tripathi Neutrophils/100 WBC (Bld) 70.8 % Normal 43.0-75.0 [facility] Comment on above: Performed By: #### C BC ####[facility] Skvgwkdkmd9015[address] [place], [place] [address]Dr. Airam Tripathi Platelet mean volume (Bld) [Entitic vol] 9.6 fL Normal 9.5-13.5 [facility] Comment on above: Performed By: #### C BC ####[facility] Bbcpifbklv5[address] [place], [place] [address]Dr. Airam Deuce PLT 265 103/ul Normal 150-450 [facility] Comment on above: Performed By: #### C BC ####[facility] Oeovgqcxjs0475[address] [place], [place] [address]Dr. Airam Tripathi RBC 3.22 106/ul Critically low 4.20-5.40 [facility] Comment on above: Performed By: #### C BC ####[facility] Yarcdjggpl59[address] [place], [place] [address]Dr. Airam Deuce WBC 7.8 103/ul Normal 4.0-11.0 [facility] Comment on above: Performed By: #### C BC ####[facility] Cngyihcago0157[address] [place], [place] [address]Dr. Airam Tripathi PROF 14(COMP METB)on 023 Albumin [Mass/Vol] 2.9 g/dL Critically low 3.4-5.0 [facility] Comment on above: Performed By: #### C MP ####[facility] Sjpmkvvtyb6087[address] [place], [place] [address]Dr. Airam Tripathi Albumin/Globulin [Mass ratio] 0.9 {ratio} Normal [facility] Comment on above: Performed By: #### C MP ####[facility] Cucuedfhml0547[address] [place], [place] [address]Dr. Airam Tripathi ALP [Catalytic activity/Vol] 176 U/L Critically high 46-116 [facility] Comment on above: Performed By: #### C MP ####[facility] Ikcwccdznw6669[address] [place], [place] [address]Dr. Airam Tripathi ALT [Catalytic activity/Vol] 19 U/L Normal 14-59 [facility] Comment on above: Performed By: #### C MP ####[facility] Vcusmuveaw27[address] [place], [place] [address]Dr. Airam Tripathi Anion gap [Moles/Vol] 12.6 mmol/L Normal [facility] Comment on above: Performed By: #### C MP ####[facility] Hkmacqfess802[address] [place], [place] [address]Dr. Airam Tripathi AST [Catalytic activity/Vol] 25 U/L Normal 15-37 [facility] Comment on above: Performed By: #### C MP ####[facility] Asebwxhbll5906[address] [place], [place] [address]Dr. Airam Tripathi Bilirubin [Mass/Vol] 0.2 mg/dL Normal 0.2-1.0 [facility] Comment on above: Performed By: #### C MP ####[facility] Qxlnribetv3070[address] [place], [place] [address]Dr. Airam Tripathi Calcium [Mass/Vol] 8.5 mg/dL Normal 8.5-10.1 [facility] Comment on above: Performed By: #### C MP ####[facility] Vrclhamrmk[address] [place], [place] [address]Dr. Airam Tripathi Chloride [Moles/Vol] 101 mmol/L Normal 98-107 [facility] Comment on above: Performed By: #### C MP ####[facility] Dniylvbknm0841 [place] [address]Dr. Airam Tripathi CO2 [Moles/Vol] 25.9 mmol/L Normal 21.0-32.0 [facility] Comment on above: Performed By: #### C MP ####[facility] Vkpriaitnn2776 [place] [address]Dr. Airam Deuce Creatinine [Mass/Vol] 1.11 mg/dL Critically high 0.55-1.02 [facility] Comment on above: Performed By: #### C MP ####[facility] Rqlnmbiqzm69[address] [place], [place] [address]Dr. Airam Deuce EGFR-AF [place] >60 Normal >=60 [facility] Comment on above: Performed By: #### C MP ####[facility] Quiyvalkoe173[address] [place], [place] [address]Dr. Airam Deuce EGFR-NON AF [place] 50 mL/min/1.73m2 Critically low >=60 [facility] Comment on above: Performed By: #### C MP ####[facility] Fcafrnohwx4965[address] [place], [place] [address]Dr. Airam Deuce Globulin (S) [Mass/Vol] 3.2 g/dL Normal [facility] Comment on above: Performed By: #### C MP ####[facility] Zqlrsswyyg576[address] [place], [place] [address]Dr. Airam Deuce Glucose [Mass/Vol] 80 mg/dL Normal 74-106 [facility] Comment on above: Performed By: #### C MP ####[facility] Gvnbsrwfec34[address] [place], [place] [address]Dr. Selenaneil Tripathi Potassium [Moles/Vol] 3.5 mmol/L Normal 3.5-5.1 [facility] Comment on above: Performed By: #### C MP ####[facility] [address] [place], [place] [address]Dr. Airam Tripathi Protein [Mass/Vol] 6.1 g/dL Critically low 6.4-8.2 [facility] Comment on above: Performed By: #### C MP ####[facility] Hcmkglrzzj[address] [place], [place] [address]DrKianna Tripathi Sodium [Moles/Vol] 136 mmol/L Normal 136-145 [facility] Comment on above: Performed By: #### C MP ####[facility] Bmcuvmufjt2599[address] [place], [place] [address]DrKianna Tripathi Urea nitrogen [Mass/Vol] 31.0 mg/dL Critically high 7.0-18.0 [facility] Comment on above: Performed By: #### C MP ####[facility] Wnenistjvn23[address] [place], [place] [address]DrKianna Tripathi Urea nitrogen/Creatinine [Mass ratio] 27.9 mg/mg Normal [facility] Comment on above: Performed By: #### C MP ####[facility] Vzgmodkaqi6[address] [place], [place] [address]DrKianna Tripathi OSMOLALITYon 07-19-2022 Osmolality [Osmolality] 285 mosm/kg Normal 275-295 [facility] Comment on above: Performed By: #### O SMO ####[facility] Fhcyxesmuj8[address] [place], [place] [address]DrKianna Tripathi CBC AUTO DIFFon 07-15-2022 BASO # 0.0 103/ul Normal 0.0-0.1 [facility] Comment on above: Performed By: #### C BC ####[facility] Xvsnjjngja13[address] [place], [place] [address]DrKianna Tripathi Basophils/100 WBC (Bld) 0.2 % Normal 0.2-2.0 [facility] Comment on above: Performed By: #### C BC ####[facility] Omvkdefbtw404[address] [place], [place] [address]DrKianna Tripathi EO # 0.1 103/ul Normal 0.0-0.7 [facility] Comment on above: Performed By: #### C BC ####[facility] Oiwbmzrwls3165[address] [place], [place] [address]DrKianna Tripathi Eosinophils/100 WBC (Bld) 1.4 % Normal 0.9-7.0 [facility] Comment on above: Performed By: #### C BC ####[facility] Pcqeixgknu29[address] [place], [place] [address]Dr. Airam Tripathi Erythrocyte distribution width (RBC) [Ratio] 13.0 % Normal 11.0-15.0 [facility] Comment on above: Performed By: #### C BC ####[facility] Ygrlccwpyi0556[address] [place], [place] [address]Dr. Airam Tripathi Hematocrit (Bld) [Volume fraction] 29.3 % Critically low 36.0-48.0 [facility] Comment on above: Performed By: #### C BC ####[facility] Rrnjmwiakk632[address] [place], [place] [address]Dr. Airam Tripathi Hemoglobin (Bld) [Mass/Vol] 10.3 g/dL Critically low 12.0-16.0 [facility] Comment on above: Performed By: #### C BC ####[facility] Mgrjfdykdx28[address] [place], [place] [address]Dr. Airam Tripathi IG # 0.05 10e3/ul Critically high 0.00-0.03 [facility] Comment on above: Performed By: #### C BC ####[facility] Brsbaiggng1399[address] [place], [place] [address]Dr. Airam Tripathi IG % 0.6 % Critically high 0.0-0.5 [facility] Comment on above: Performed By: #### C BC ####[facility] Ofmxpdwqrk995[address] [place], [place] [address]Dr. Airam Tripathi LYMPH # 0.9 103/ul Critically low 1.2-3.8 [facility] Comment on above: Performed By: #### C BC ####[facility] Mqtjarbahi8327[address] [place], [place] [address]Dr. Airam Tripathi Lymphocytes/100 WBC (Bld) 10.6 % Critically low 20.5-60.0 [facility] Comment on above: Performed By: #### C BC ####[facility] [address] [place] [address]Dr. Airam Deuce MANUAL DIFF REQ NO Normal [facility] Comment on above: Performed By: #### C BC ####[facility] Uqmhnmpqwe16[address] [place] [address]Dr. Airam Deuce MCH (RBC) [Entitic mass] 29.3 pg Normal 26.7-34.0 [facility] Comment on above: Performed By: #### C BC ####[facility] Zcvbgaenze10[address] [place], [place] [address]Dr. Airam Deuce MCHC (RBC) [Mass/Vol] 35.2 g/dL Normal 29.9-35.2 [facility] Comment on above: Performed By: #### C BC ####[facility] Gomvcbhuhw2579[address] [place], [place] [address]Dr. Selenaneil Tripathi MCV (RBC) [Entitic vol] 83.5 fL Normal 81.0-99.0 [facility] Comment on above: Performed By: #### C BC ####[facility] Rkpojuxsko8[address] [place], [place] [address]Dr. Selenaneil Tripathi MONO # 0.5 103/ul Normal 0.3-0.8 [facility] Comment on above: Performed By: #### C BC ####[facility] Qregpdzeyp689[address] [place], [place] [address]Dr. Airam Tripathi Monocytes/100 WBC (Bld) 5.1 % Normal 1.7-12.0 [facility] Comment on above: Performed By: #### C BC ####[facility] Knrlfarzvp018[address] [place], [place] [address]Dr. Airam Tripathi NEUT # 7.3 103/ul Critically high 1.4-6.5 [facility] Comment on above: Performed By: #### C BC ####[facility] Gvbsqnbmxh1657[address] [place], [place] [address]Dr. Airam Tripathi Neutrophils/100 WBC (Bld) 82.1 % Critically high 43.0-75.0 [facility] Comment on above: Performed By: #### C BC ####[facility] Tysmgdhaza[address] [place], [place] [id number]. Airam Deuce Platelet mean volume (Bld) [Entitic vol] 8.9 fL Critically low 9.5-13.5 [facility] Comment on above: Performed By: #### C BC ####[facility] Ubiivvkzyt7[address] [place] [address]Dr. Selenaneil Deuce PLT 290 103/ul Normal 150-450 [facility] Comment on above: Performed By: #### C BC ####[facility] Brparhxvkn8774 [place] [address]Dr. Selenaneil Deuce RBC 3.51 106/ul Critically low 4.20-5.40 [facility] Comment on above: Performed By: #### C BC ####[facility] Duabhajkop3462 [place] [address]Dr. Selenaneil Deuce WBC 8.9 103/ul Normal 4.0-11.0 [facility] Comment on above: Performed By: #### C BC ####[facility] Lldlmkllzj8623 [place] [address]Dr. Airam Tripathi PROF 14(COMP METB)on 023 Albumin [Mass/Vol] 3.2 g/dL Critically low 3.4-5.0 [facility] Comment on above: Performed By: #### C MP ####[facility] Pbgcbajlcp0894 [place] [address]Dr. Airam Tripathi Albumin/Globulin [Mass ratio] 0.9 {ratio} Normal [facility] Comment on above: Performed By: #### C MP ####[facility] Quimdvmioi6630 [place] [address]Dr. Airam Tripathi ALP [Catalytic activity/Vol] 194 U/L Critically high 46-116 [facility] Comment on above: Performed By: #### C MP ####[facility] Hucszcldnz1827 [place] [address]Dr. Airam Tripathi ALT [Catalytic activity/Vol] 19 U/L Normal 14-59 [facility] Comment on above: Performed By: #### C MP ####[facility] Kdnxnvhgrm0346 [place] [address]Dr. Airam Tripathi Anion gap [Moles/Vol] 11.3 mmol/L Normal [facility] Comment on above: Performed By: #### C MP ####[facility] Fszxiqkyvu0570 [place] [address]Dr. Airam Tripathi AST [Catalytic activity/Vol] 24 U/L Normal 15-37 [facility] Comment on above: Performed By: #### C MP ####[facility] Sbfxivxfma828[address] [place], [place] [address]Dr. Airam Deuce Bilirubin [Mass/Vol] 0.2 mg/dL Normal 0.2-1.0 [facility] Comment on above: Performed By: #### C MP ####[facility] Gldqwiymir724[address] [place], [place] [address]Dr. Airam Tripathi Calcium [Mass/Vol] 8.7 mg/dL Normal 8.5-10.1 [facility] Comment on above: Performed By: #### C MP ####[facility] Llkwxzaxjz1098[address] [place], [place] [address]Dr. Airam Tripathi Chloride [Moles/Vol] 101 mmol/L Normal 98-107 [facility] Comment on above: Performed By: #### C MP ####[facility] Oecszjhabf1722[address] [place], [place] [address]Dr. Airam Tripathi CO2 [Moles/Vol] 27.2 mmol/L Normal 21.0-32.0 [facility] Comment on above: Performed By: #### C MP ####[facility] Jltyjqzhww2637[address] [place], [place] [address]Dr. Airam Tripathi Creatinine [Mass/Vol] 1.17 mg/dL Critically high 0.55-1.02 [facility] Comment on above: Performed By: #### C MP ####[facility] Arfpsmxboq5814[address] [place], [place] [address]Dr. Selenaneil Deuce EGFR-AF [place] 57 mL/min/1.73m2 Critically low >=60 [facility] Comment on above: Performed By: #### C MP ####[facility] Kiwdnthmvj0765[address] [place], [place] [address]Dr. Airam Tripathi EGFR-NON AF [place] 47 mL/min/1.73m2 Critically low >=60 [facility] Comment on above: Performed By: #### C MP ####[facility] Kqlqyvnudh5603 [place] [address]Dr. Airam Tripathi Globulin (S) [Mass/Vol] 3.5 g/dL Normal [facility] Comment on above: Performed By: #### C MP ####[facility] Icsngttvvq602[address] [place], [place] [address]Dr. Airam Tripathi Glucose [Mass/Vol] 86 mg/dL Normal 74-106 [facility] Comment on above: Performed By: #### C MP ####[facility] Viaharmvoo9[address] [place], [place] [address]Dr. Airam Tripathi Potassium [Moles/Vol] 5.5 mmol/L Critically high 3.5-5.1 [facility] Comment on above: Performed By: #### C MP ####[facility] Efotqmykea[address] [place], [place] [address]Dr. Airam Tripathi Protein [Mass/Vol] 6.7 g/dL Normal 6.4-8.2 [facility] Comment on above: Performed By: #### C MP ####[facility] Vyweqztejy8546[address] [place], [place] [address]Dr. Airam Tripathi Sodium [Moles/Vol] 134 mmol/L Critically low 136-145 [facility] Comment on above: Performed By: #### C MP ####[facility] Zcmfbeoxhs1595[address] [place], [place] [address]Dr. Airam Tripathi Urea nitrogen [Mass/Vol] 26.0 mg/dL Critically high 7.0-18.0 [facility] Comment on above: Performed By: #### C MP ####[facility] Ekczibyjds5404[address] [place], [place] [address]Dr. Airam Tripathi Urea nitrogen/Creatinine [Mass ratio] 22.2 mg/mg Normal [facility] Comment on above: Performed By: #### C MP ####[facility] Pezhcxgwgj142[address] [place], [place] [address]Dr. Airam Tripathi OSMOLALITYon 07-08-2022 Osmolality [Osmolality] 273 mosm/kg Critically low 275-295 [facility] Comment on above: Performed By: #### O SMO ####[facility] Ddomsviphr0620 [place] [address]Dr. Airam Tripathi CBC AUTO DIFFon 07-07-2022 BASO # 0.0 103/ul Normal 0.0-0.1 [facility] Comment on above: Performed By: #### C BC ####[facility] Moopbojwph2410 [place] [address]Dr. Airam Tripathi Basophils/100 WBC (Bld) 0.4 % Normal 0.2-2.0 [facility] Comment on above: Performed By: #### C BC ####[facility] Ikqlpawpyy6470[address] [place], [place] [address]Dr. Airam Tripathi EO # 0.1 103/ul Normal 0.0-0.7 [facility] Comment on above: Performed By: #### C BC ####[facility] Kpgltkrxlw[address] [place], [place] [address]Dr. Airam Tripathi Eosinophils/100 WBC (Bld) 1.6 % Normal 0.9-7.0 [facility] Comment on above: Performed By: #### C BC ####[facility] Kcixiijzyw93[address] [place], [place] [address]Dr. Airam Tripathi Erythrocyte distribution width (RBC) [Ratio] 13.1 % Normal 11.0-15.0 [facility] Comment on above: Performed By: #### C BC ####[facility] Dplrxmcgvz1924[address] [place], [place] [address]Dr. Airam Tripathi Hematocrit (Bld) [Volume fraction] 33.7 % Critically low 36.0-48.0 [facility] Comment on above: Performed By: #### C BC ####[facility] Ncidqagfvj5[address] [place], [place] [address]Dr. Airam Tripathi Hemoglobin (Bld) [Mass/Vol] 9.9 g/dL Critically low 12.0-16.0 [facility] Comment on above: Performed By: #### C BC ####[facility] [address]ngykv[address] [place] [address]Dr. Airam Tripathi IG # 0.05 10e3/ul Critically high 0.00-0.03 [facility] Comment on above: Performed By: #### C BC ####[facility] Yunryilbnj6203 [place] [address]Dr. Airam Tripathi IG % 0.6 % Critically high 0.0-0.5 [facility] Comment on above: Performed By: #### C BC ####[facility] Zcfaylgzmj3383 [place] [address]Dr. Airam Tripathi LYMPH # 1.2 103/ul Normal 1.2-3.8 [facility] Comment on above: Performed By: #### C BC ####[facility] Kqopcujsog8554 [place] [address]Dr. Airam Tripathi Lymphocytes/100 WBC (Bld) 15.5 % Critically low 20.5-60.0 [facility] Comment on above: Performed By: #### C BC ####[facility] Nhuffasigj0194 [place] [address]Dr. Selenaneil Tripathi MANUAL DIFF REQ NO Normal [facility] Comment on above: Performed By: #### C BC ####[facility] Nuriplmbvu1166 [place] [address]Dr. Airam Tripathi MCH (RBC) [Entitic mass] 28.7 pg Normal 26.7-34.0 [facility] Comment on above: Performed By: #### C BC ####[facility] Vuurcwjoxp6692 [place] [address]Dr. Airam Tripathi MCHC (RBC) [Mass/Vol] 29.4 g/dL Critically low 29.9-35.2 [facility] Comment on above: Performed By: #### C BC ####[facility] Flalxphtgg8551 [place] [address]Dr. Airam Tripathi MCV (RBC) [Entitic vol] 97.7 fL Normal 81.0-99.0 [facility] Comment on above: Performed By: #### C BC ####[facility] Rnckfyqydg9050 [place] [address]Dr. Airam Tripathi MONO # 0.6 103/ul Normal 0.3-0.8 [facility] Comment on above: Performed By: #### C BC ####[facility] Ozqubbmway2125 [place] [address]Dr. Airam Tripathi Monocytes/100 WBC (Bld) 7.7 % Normal 1.7-12.0 [facility] Comment on above: Performed By: #### C BC ####[facility] Zksqsmawki4166 [place] [phone]. Airam Tripathi NEUT # 5.9 103/ul Normal 1.4-6.5 [facility] Comment on above: Performed By: #### C BC ####[facility] Iiqqdywjec3276 [place] [address]Dr. Airam Tripathi Neutrophils/100 WBC (Bld) 74.2 % Normal 43.0-75.0 [facility] Comment on above: Performed By: #### C BC ####[facility] Pmnkrwnoan7885 [place] [id number]. Airam Tripathi Platelet mean volume (Bld) [Entitic vol] 9.4 fL Critically low 9.5-13.5 [facility] Comment on above: Performed By: #### C BC ####[facility] Nqnwebngkr6379 [place] [id number]. Airam Tripathi PLT 331 103/ul Normal 150-450 [facility] Comment on above: Performed By: #### C BC ####[facility] Utvbjbevql5724 [place] [phone]. Airam Tripathi RBC 3.45 106/ul Critically low 4.20-5.40 [facility] Comment on above: Performed By: #### C BC ####[facility] Jzrpubizqr8455 [place] [phone]. Airam Tripathi WBC 7.9 103/ul Normal 4.0-11.0 [facility] Comment on above: Performed By: #### C BC ####[facility] Sjslgejtdc8800 [place] [address]Dr. Airam Tripathi PROF 14(COMP METB)on 023 Albumin [Mass/Vol] 3.4 g/dL Normal 3.4-5.0 [facility] Comment on above: Performed By: #### C MP ####[facility] Ltwhwekbft7452 [place] [address]Dr. Airam Tripathi Albumin/Globulin [Mass ratio] 1.1 {ratio} Normal [facility] Comment on above: Performed By: #### C MP ####[facility] Rwaunjvwma033[address] [place], [place] [address]Dr. Airam Tripathi ALP [Catalytic activity/Vol] 197 U/L Critically high 46-116 [facility] Comment on above: Performed By: #### C MP ####[facility] Ijsogbbkks563[address] [place], [place] [address]Dr. Airam Tripathi ALT [Catalytic activity/Vol] 18 U/L Normal 14-59 [facility] Comment on above: Performed By: #### C MP ####[facility] Ofrfentvxh9850[address] [place], [place] [address]Dr. Airam Tripathi Anion gap [Moles/Vol] 12.3 mmol/L Normal [facility] Comment on above: Performed By: #### C MP ####[facility] Ehrxhezatn5[address] [place], [place] [address]Dr. Airam Tripathi AST [Catalytic activity/Vol] 26 U/L Normal 15-37 [facility] Comment on above: Performed By: #### C MP ####[facility] Kjxvesofey5027[address] [place], [place] [address]Dr. Airam Tripathi Bilirubin [Mass/Vol] 0.3 mg/dL Normal 0.2-1.0 [facility] Comment on above: Performed By: #### C MP ####[facility] Nnmskhmafx3910[address] [place], [place] [address]Dr. Airam Tripathi Calcium [Mass/Vol] 8.6 mg/dL Normal 8.5-10.1 [facility] Comment on above: Performed By: #### C MP ####[facility] Zuaaxxiwjm1226 [place] [id number]. Airam Tripathi Chloride [Moles/Vol] 96 mmol/L Critically low 98-107 [facility] Comment on above: Performed By: #### C MP ####[facility] Fplypodejk3295 [place] [address]Dr. Airam Tripathi CO2 [Moles/Vol] 27.8 mmol/L Normal 21.0-32.0 [facility] Comment on above: Performed By: #### C MP ####[facility] Lqxdphimla7778[address] [place], [place] [address]Dr. Airam Tripathi Creatinine [Mass/Vol] 1.55 mg/dL Critically high 0.55-1.02 [facility] Comment on above: Performed By: #### C MP ####[facility] Otfivihymk2222[address] [place], [place] [address]Dr. Airam Tripathi EGFR-AF [place] 41 mL/min/1.73m2 Critically low >=60 [facility] Comment on above: Performed By: #### C MP ####[facility] Errvvgyqnm3767[address] [place], [place] [address]Dr. Airam Tripathi EGFR-NON AF [place] 34 mL/min/1.73m2 Critically low >=60 [facility] Comment on above: Performed By: #### C MP ####[facility] Yzwjovrzzm483[address] [place], [place] [address]Dr. Airam Tripathi Globulin (S) [Mass/Vol] 3.2 g/dL Normal [facility] Comment on above: Performed By: #### C MP ####[facility] Iosanvabeg2309[address] [place], [place] [address]Dr. Airam Tripathi Glucose [Mass/Vol] 87 mg/dL Normal 74-106 [facility] Comment on above: Performed By: #### C MP ####[facility] Bneijhdtoj5855[address] [place], [place] [address]Dr. Airam Tripathi Potassium [Moles/Vol] 5.1 mmol/L Normal 3.5-5.1 [facility] Comment on above: Performed By: #### C MP ####[facility] Ezoonlapfk5590 [place] [address]Dr. Airam Tripathi Protein [Mass/Vol] 6.6 g/dL Normal 6.4-8.2 [facility] Comment on above: Performed By: #### C MP ####[facility] Khlxajyrph0878 [place] [address]Dr. Airam Tripathi Sodium [Moles/Vol] 131 mmol/L Critically low 136-145 [facility] Comment on above: Performed By: #### C MP ####[facility] Bgyzlrhoki69[address] [place], [place] [address]Dr. Airam Tripathi Urea nitrogen [Mass/Vol] 31.0 mg/dL Critically high 7.0-18.0 [facility] Comment on above: Performed By: #### C MP ####[facility] Rdnstrpail0915[address] [place], [place] [address]Dr. Airam Deuce Urea nitrogen/Creatinine [Mass ratio] 20.0 mg/mg Normal [facility] Comment on above: Performed By: #### C MP ####[facility] Equsykwrht7618[address] [place], [place] [address]Dr. Airam Tripathi OSMOLALITYon 07-02-2022 Osmolality [Osmolality] 281 mosm/kg Normal 275-295 [facility] Comment on above: Performed By: #### O SMO ####[facility] Plsjhotvbg04[address] [place], [place] [address]Dr. Airam Deuce CBC AUTO DIFFon 06-29-2022 BASO # 0.0 103/ul Normal 0.0-0.1 [facility] Comment on above: Performed By: #### C BC ####[facility] Oaiykybupt827[address] [place], [place] [address]Dr. Airam Deuce Basophils/100 WBC (Bld) 0.3 % Normal 0.2-2.0 [facility] Comment on above: Performed By: #### C BC ####[facility] Nnqbetzoed7345[address] [place], [place] [address]Dr. Selenaneil Tripathi EO # 0.2 103/ul Normal 0.0-0.7 [facility] Comment on above: Performed By: #### C BC ####[facility] Tfowfyystq2295 [place] [phone]. Airam Tripathi Eosinophils/100 WBC (Bld) 2.3 % Normal 0.9-7.0 [facility] Comment on above: Performed By: #### C BC ####[facility] Snrovhaedr7814 [place] [address]Dr. Airam Tripathi Erythrocyte distribution width (RBC) [Ratio] 13.2 % Normal 11.0-15.0 [facility] Comment on above: Performed By: #### C BC ####[facility] Kprnoqiddc9685[address] [place], [place] [address]Dr. Airam Tripathi Hematocrit (Bld) [Volume fraction] 28.2 % Critically low 36.0-48.0 [facility] Comment on above: Performed By: #### C BC ####[facility] Hnbgekuhxb378[address] [place], [place] [address]Dr. Airam Tripathi Hemoglobin (Bld) [Mass/Vol] 9.1 g/dL Critically low 12.0-16.0 [facility] Comment on above: Performed By: #### C BC ####[facility] Lcwpyjldsv4147[address] [place], [place] [address]Dr. Airam Tripathi IG # 0.03 10e3/ul Normal 0.00-0.03 [facility] Comment on above: Performed By: #### C BC ####[facility] Hgqdbomgbq7535 [place] [address]Dr. Airam Tripathi IG % 0.4 % Normal 0.0-0.5 [facility] Comment on above: Performed By: #### C BC ####[facility] Fiefmtxleh5620[address] [place], [place] [address]Dr. Airam Tripathi LYMPH # 1.0 103/ul Critically low 1.2-3.8 [facility] Comment on above: Performed By: #### C BC ####[facility] Qanzqhumnr761[address] [place], [place] [address]Dr. Airam Tripathi Lymphocytes/100 WBC (Bld) 12.8 % Critically low 20.5-60.0 [facility] Comment on above: Performed By: #### C BC ####[facility] Hrpaifjbgl3510 [place] [address]Dr. Airam Tripathi MANUAL DIFF REQ NO Normal [facility] Comment on above: Performed By: #### C BC ####[facility] Tutpcooqld6582 [place] [id number]. Airam Tripathi MCH (RBC) [Entitic mass] 29.9 pg Normal 26.7-34.0 [facility] Comment on above: Performed By: #### C BC ####[facility] Dgquehfidz6559[address] [place], [place] [address]Dr. Airam Tripathi MCHC (RBC) [Mass/Vol] 32.3 g/dL Normal 29.9-35.2 [facility] Comment on above: Performed By: #### C BC ####[facility] Osodcwflkb3938[address] [place], [place] [address]Dr. Airam Tripathi MCV (RBC) [Entitic vol] 92.8 fL Normal 81.0-99.0 [facility] Comment on above: Performed By: #### C BC ####[facility] Rbocelqmjk[address] [place], [place] [address]Dr. Airam Tripathi MONO # 0.5 103/ul Normal 0.3-0.8 [facility] Comment on above: Performed By: #### C BC ####[facility] Vpqrykjqrm2[address] [place], [place] [address]Dr. Selenaneil Tripathi Monocytes/100 WBC (Bld) 6.0 % Normal 1.7-12.0 [facility] Comment on above: Performed By: #### C BC ####[facility] Uwagnzcezs26[address] [place], [place] [address]Dr. Airam Tripathi NEUT # 6.0 103/ul Normal 1.4-6.5 [facility] Comment on above: Performed By: #### C BC ####[facility] [address]kn[address] [place], [place] [address]Dr. Airam Tripathi Neutrophils/100 WBC (Bld) 78.2 % Critically high 43.0-75.0 [facility] Comment on above: Performed By: #### C BC ####[facility] Unvlxlpaaa77[address] [place] [phone]. Airam Tripathi Platelet mean volume (Bld) [Entitic vol] 9.0 fL Critically low 9.5-13.5 [facility] Comment on above: Performed By: #### C BC ####[facility] Uqytejcwqh[address] [place] [phone]. Airam Tripathi PLT 332 103/ul Normal 150-450 [facility] Comment on above: Performed By: #### C BC ####[facility] [address]va[address] [place] [address]Dr. Airam Tripathi RBC 3.04 106/ul Critically low 4.20-5.40 [facility] Comment on above: Performed By: #### C BC ####[facility] Jzoqjbtvrh24[address] [place] [address]Dr. Airam Tripathi WBC 7.7 103/ul Normal 4.0-11.0 [facility] Comment on above: Performed By: #### C BC ####[facility] Jlcnlmigyo[address] [place] [address]Dr. Airam Tripathi PROF 14(COMP METB)on 023 Albumin [Mass/Vol] 3.2 g/dL Critically low 3.4-5.0 [facility] Comment on above: Performed By: #### C MP ####[facility] Oyz[address]cgpbx[address] [place] [address]Dr. Airam Tripathi Albumin/Globulin [Mass ratio] 0.9 {ratio} Normal [facility] Comment on above: Performed By: #### C MP ####[facility] Kxhdhoguby[address] [place] [address]Dr. Airam Tripathi ALP [Catalytic activity/Vol] 135 U/L Critically high 46-116 [facility] Comment on above: Performed By: #### C MP ####[facility] Eyuvfyflie[address] [place] [address]Dr. Airam Tripathi ALT [Catalytic activity/Vol] 25 U/L Normal 14-59 [facility] Comment on above: Performed By: #### C MP ####[facility] Qabtqtecmi8371 [place] [phone]. Airam Tripathi Anion gap [Moles/Vol] 9.1 mmol/L Normal [facility] Comment on above: Performed By: #### C MP ####[facility] Trwzuaptbg4331 [place] [phone]. Airam Tripathi AST [Catalytic activity/Vol] 34 U/L Normal 15-37 [facility] Comment on above: Performed By: #### C MP ####[facility] Mquzbpnsvn1489 [place] [phone]. Airam Tripathi Bilirubin [Mass/Vol] 0.3 mg/dL Normal 0.2-1.0 [facility] Comment on above: Performed By: #### C MP ####[facility] Ayaroycamf[address] [place] [address]Dr. Airam Tripathi Calcium [Mass/Vol] 8.6 mg/dL Normal 8.5-10.1 [facility] Comment on above: Performed By: #### C MP ####[facility] [address]ry[address] [place], [place] [address]Dr. Airam Tripathi Chloride [Moles/Vol] 99 mmol/L Normal 98-107 [facility] Comment on above: Performed By: #### C MP ####[facility] Dhmwpytidq7181 [place] [phone]. Airam Tripathi CO2 [Moles/Vol] 29.1 mmol/L Normal 21.0-32.0 [facility] Comment on above: Performed By: #### C MP ####[facility] Jqzkwpikhj3434 [place] [phone]. Airam Tripathi Creatinine [Mass/Vol] 1.40 mg/dL Critically high 0.55-1.02 [facility] Comment on above: Performed By: #### C MP ####[facility] [address]azh[address] [place] [address]Dr. Airam Tripathi EGFR-AF [place] 46 mL/min/1.73m2 Critically low >=60 [facility] Comment on above: Performed By: #### C MP ####[facility] Nbgqvnnkxm5722 [place] [phone]. Airam Tripathi EGFR-NON AF [place] 38 mL/min/1.73m2 Critically low >=60 [facility] Comment on above: Performed By: #### C MP ####[facility] Wnbwclyiua1400 [place] [phone]. Airam Tripathi Globulin (S) [Mass/Vol] 3.4 g/dL Normal [facility] Comment on above: Performed By: #### C MP ####[facility] Ovlnhejmrb88[address] [place] [phone]. Airam Tripathi Glucose [Mass/Vol] 83 mg/dL Normal 74-106 [facility] Comment on above: Performed By: #### C MP ####[facility] Fsterbndtf5005 [place] [phone]. Airam Tripathi Potassium [Moles/Vol] 4.2 mmol/L Normal 3.5-5.1 [facility] Comment on above: Performed By: #### C MP ####[facility] Flhzsgmzqk3533 [place] [phone]. Airam Tripathi Protein [Mass/Vol] 6.6 g/dL Normal 6.4-8.2 [facility] Comment on above: Performed By: #### C MP ####[facility] Zjdmrwbiaz2637 [place] [phone]. Airam Tripathi Sodium [Moles/Vol] 133 mmol/L Critically low 136-145 [facility] Comment on above: Performed By: #### C MP ####[facility] Lcppavvnaa0858 [place] [phone]. Airam Tripathi Urea nitrogen [Mass/Vol] 37.0 mg/dL Critically high 7.0-18.0 [facility] Comment on above: Performed By: #### C MP ####[facility] Pxztyncyyr5796 [place] [phone]. Airam Tripathi Urea nitrogen/Creatinine [Mass ratio] 26.4 mg/mg Normal [facility] Comment on above: Performed By: #### C MP ####[facility] Wwvlikyqhw[address]642 [place] [address]Dr. Airam Tripathi BNPon 06-18-2022 Natriuretic peptide B (Bld) [Mass/Vol] 5826.0 pg/mL Critically high <=900.0 [facility] Comment on above: Performed By: #### B ENVIRONMENTAL ENGINEERING ASSISTANT, CMP ####[facility] Hkjmcaojux[address] [place], [place] [address]Dr. Airam Tripathi CBC AUTO DIFFon 06-18-2022 BASO # 0.0 103/ul Normal 0.0-0.1 [facility] Comment on above: Performed By: #### C BC ####[facility] Xxrlvgzrat[address] [place], [place] [address]Dr. Airam Tripathi Basophils/100 WBC (Bld) 0.4 % Normal 0.2-2.0 [facility] Comment on above: Performed By: #### C BC ####[facility] Ugwgxgiwbf[address] [place], [place] [address]Dr. Airam Tripathi EO # 0.1 103/ul Normal 0.0-0.7 [facility] Comment on above: Performed By: #### C BC ####[facility] Ypyohnirct[address] [place], [place] [address]Dr. Airam Tripathi Eosinophils/100 WBC (Bld) 1.3 % Normal 0.9-7.0 [facility] Comment on above: Performed By: #### C BC ####[facility] [address]tsqdsqr[address] [place], [place] [address]Dr. Airam Tripathi Erythrocyte distribution width (RBC) [Ratio] 13.4 % Normal 11.0-15.0 [facility] Comment on above: Performed By: #### C BC ####[facility] Rpqdnscvut6[address] [place], [place] [address]Dr. Airam Tripathi Hematocrit (Bld) [Volume fraction] 27.3 % Critically low 36.0-48.0 [facility] Comment on above: Performed By: #### C BC ####[facility] Zrlglbajvy[address] [place], [place] [address]Dr. Airam Tripathi Hemoglobin (Bld) [Mass/Vol] 8.6 g/dL Critically low 12.0-16.0 [facility] Comment on above: Performed By: #### C BC ####[facility] Sybnkhjroe4645 [place] [address]DrKianna Tripathi IG # 0.08 10e3/ul Critically high 0.00-0.03 [facility] Comment on above: Performed By: #### C BC ####[facility] Oudradfoyb7045 [place] [address]DrKianna Tripathi IG % 0.8 % Critically high 0.0-0.5 [facility] Comment on above: Performed By: #### C BC ####[facility] Ewbciifuzk7072 [place] [address]DrKianna Tripathi LYMPH # 1.9 103/ul Normal 1.2-3.8 [facility] Comment on above: Performed By: #### C BC ####[facility] Wxohwajxsd4436 [place] [address]DrKianna Tripathi Lymphocytes/100 WBC (Bld) 19.3 % Critically low 20.5-60.0 [facility] Comment on above: Performed By: #### C BC ####[facility] Zqqdwzqrvs7383 [place] [address]DrKianna Tripathi MANUAL DIFF REQ NO Normal [facility] Comment on above: Performed By: #### C BC ####[facility] Bcvlcfjutp5589 [place] [address]DrKianna Tripathi MCH (RBC) [Entitic mass] 29.6 pg Normal 26.7-34.0 [facility] Comment on above: Performed By: #### C BC ####[facility] Mdhpqijxnw4655 [place] [phone] Tripathi MCHC (RBC) [Mass/Vol] 31.5 g/dL Normal 29.9-35.2 [facility] Comment on above: Performed By: #### C BC ####[facility] Afjnagoddd6143 [place] [phone] Tripathi MCV (RBC) [Entitic vol] 93.8 fL Normal 81.0-99.0 [facility] Comment on above: Performed By: #### C BC ####[facility] Msxwpiwqbf5960 [place] [phone]. Airam Tripathi MONO # 0.6 103/ul Normal 0.3-0.8 [facility] Comment on above: Performed By: #### C BC ####[facility] Ltmwhnbrpu1043 [place] [phone]. Airam Tripathi Monocytes/100 WBC (Bld) 6.5 % Normal 1.7-12.0 [facility] Comment on above: Performed By: #### C BC ####[facility] Icglwrldcn8448 [place] [address]Dr. Airam Tripathi NEUT # 6.9 103/ul Critically high 1.4-6.5 [facility] Comment on above: Performed By: #### C BC ####[facility] Rkbebbjiug6230 [place] [address]Dr. Airam Tripathi Neutrophils/100 WBC (Bld) 71.7 % Normal 43.0-75.0 [facility] Comment on above: Performed By: #### C BC ####[facility] Nfsrebdtpm4312 [place] [address]Dr. Airam Tripathi Platelet mean volume (Bld) [Entitic vol] 8.5 fL Critically low 9.5-13.5 [facility] Comment on above: Performed By: #### C BC ####[facility] Fapwpiggoq9856 [place] [phone]. Airam Tripathi PLT 295 103/ul Normal 150-450 [facility] Comment on above: Performed By: #### C BC ####[facility] Akeebeqgmz0695 [place] [phone]. Airam Tripathi RBC 2.91 106/ul Critically low 4.20-5.40 [facility] Comment on above: Performed By: #### C BC ####[facility] Hyngmnexkv5759 [place] [phone]. Airam Tripathi WBC 9.7 103/ul Normal 4.0-11.0 [facility] Comment on above: Performed By: #### C BC ####[facility] Uoqnpxkure9181 [place] [address]Dr. Airam Tripathi PROF 14(COMP METB)on 06-18- 022 Albumin [Mass/Vol] 2.8 g/dL Critically low 3.4-5.0 [facility] Comment on above: Performed By: #### B ENVIRONMENTAL ENGINEERING ASSISTANT, CMP ####[facility] Odsvnddndy6743 [place] [address]Dr. Airam Tripathi Albumin/Globulin [Mass ratio] 0.9 {ratio} Normal [facility] Comment on above: Performed By: #### B ENVIRONMENTAL ENGINEERING ASSISTANT, CMP ####[facility] Yujrpgcmxi[address] [place], [place] [address]Dr. Airam Tripathi ALP [Catalytic activity/Vol] 125 U/L Critically high 46-116 [facility] Comment on above: Performed By: #### B ENVIRONMENTAL ENGINEERING ASSISTANT, CMP ####[facility] Ernjgxahoq[address] [place], [place] [address]Dr. Airam Tripathi ALT [Catalytic activity/Vol] 16 U/L Normal 14-59 [facility] Comment on above: Performed By: #### B ENVIRONMENTAL ENGINEERING ASSISTANT, CMP ####[facility] Puyjnjprwo[address] [place], [place] [address]Dr. Airam Tripathi Anion gap [Moles/Vol] 11.4 mmol/L Normal [facility] Comment on above: Performed By: #### B ENVIRONMENTAL ENGINEERING ASSISTANT, CMP ####[facility] Jxyhcpofpd[address] [place], [place] [address]Dr. Airam Tripathi AST [Catalytic activity/Vol] 23 U/L Normal 15-37 [facility] Comment on above: Performed By: #### B ENVIRONMENTAL ENGINEERING ASSISTANT, CMP ####[facility] Eygnjqffmm[address] [place], [place] [address]Dr. Airam Tripathi Bilirubin [Mass/Vol] 0.2 mg/dL Normal 0.2-1.0 [facility] Comment on above: Performed By: #### B ENVIRONMENTAL ENGINEERING ASSISTANT, CMP ####[facility] K[address]zzrxpvc[address] [place], [place] [address]Dr. Airam Tripathi Calcium [Mass/Vol] 8.1 mg/dL Critically low 8.5-10.1 [facility] Comment on above: Performed By: #### B ENVIRONMENTAL ENGINEERING ASSISTANT, CMP ####[facility] Pswlrjepze[address] [place], [place] [address]Dr. Airam Tripathi Chloride [Moles/Vol] 96 mmol/L Critically low 98-107 [facility] Comment on above: Performed By: #### B ENVIRONMENTAL ENGINEERING ASSISTANT, CMP ####[facility] Lacmkajehc[address] [place], [place] [address]Dr. Airam Deuce CO2 [Moles/Vol] 26.6 mmol/L Normal 21.0-32.0 [facility] Comment on above: Performed By: #### B ENVIRONMENTAL ENGINEERING ASSISTANT, CMP ####[facility] Nidbcagdrm65[address] [place], [place] [address]Dr. Airam Tripathi Creatinine [Mass/Vol] 1.31 mg/dL Critically high 0.55-1.02 [facility] Comment on above: Performed By: #### B ENVIRONMENTAL ENGINEERING ASSISTANT, CMP ####[facility] Kffbqkwbpn[address] [place], [place] [address]Dr. Selenaneil Deuce EGFR-AF [place] 50 mL/min/1.73m2 Critically low >=60 [facility] Comment on above: Performed By: #### B ENVIRONMENTAL ENGINEERING ASSISTANT, CMP ####[facility] O[address]zjgqeuu[address] [place], [place] [address]Dr. Selenaneil Deuce EGFR-NON AF [place] 41 mL/min/1.73m2 Critically low >=60 [facility] Comment on above: Performed By: #### B ENVIRONMENTAL ENGINEERING ASSISTANT, CMP ####[facility] Qxxieyucle[address] [place], [place] [address]Dr. Airam Tripathi Globulin (S) [Mass/Vol] 3.0 g/dL Normal [facility] Comment on above: Performed By: #### B ENVIRONMENTAL ENGINEERING ASSISTANT, CMP ####[facility] Zovxlxzwcr[address] [place], [place] [address]Dr. Airam Tripathi Glucose [Mass/Vol] 82 mg/dL Normal 74-106 [facility] Comment on above: Performed By: #### B ENVIRONMENTAL ENGINEERING ASSISTANT, CMP ####[facility] Vmaopzmnlf[address] [place], [place] [address]Dr. Airam Tripathi Potassium [Moles/Vol] 4.0 mmol/L Normal 3.5-5.1 [facility] Comment on above: Performed By: #### B ENVIRONMENTAL ENGINEERING ASSISTANT, CMP ####[facility] Pwmhpahpii4225 [place] [address]Dr. Airam Tripathi Protein [Mass/Vol] 5.8 g/dL Critically low 6.4-8.2 [facility] Comment on above: Performed By: #### B ENVIRONMENTAL ENGINEERING ASSISTANT, CMP ####[facility] Qvxadcemqb[address] [place], [place] [address]Dr. Selenaneil Tripathi Sodium [Moles/Vol] 130 mmol/L Critically low 136-145 [facility] Comment on above: Performed By: #### B ENVIRONMENTAL ENGINEERING ASSISTANT, CMP ####[facility] Rohmhixjxu[address] [place], [place] [address]Dr. Airam Tripathi Urea nitrogen [Mass/Vol] 19.0 mg/dL Critically high 7.0-18.0 [facility] Comment on above: Performed By: #### B ENVIRONMENTAL ENGINEERING ASSISTANT, CMP ####[facility] Eojbyxrmog4[address] [place], [place] [address]Dr. Airam Tripathi Urea nitrogen/Creatinine [Mass ratio] 14.5 mg/mg Normal [facility] Comment on above: Performed By: #### B ENVIRONMENTAL ENGINEERING ASSISTANT, CMP ####[facility] Gxgvktyffs[address] [place], [place] [address]Dr. Selenaneil Deuce BNPon 06-17-2022 Natriuretic peptide B (Bld) [Mass/Vol] 2510.0 pg/mL Critically high <=900.0 [facility] Comment on above: Performed By: #### B ENVIRONMENTAL ENGINEERING ASSISTANT, CMP ####[facility] Lxzaulifvr42[address] [place], [place] [address]Dr. Selenaneil Deuce CBC AUTO DIFFon 06-17-2022 BASO # 0.0 103/ul Normal 0.0-0.1 [facility] Comment on above: Performed By: #### C BC ####[facility] Qlubftkmsh[address] [place], [place] [address]Dr. Airam Tripathi Basophils/100 WBC (Bld) 0.4 % Normal 0.2-2.0 [facility] Comment on above: Performed By: #### C BC ####[facility] Ussokiebrn[address] [place], [place] [address]DrKianna Tripathi EO # 0.0 103/ul Normal 0.0-0.7 [facility] Comment on above: Performed By: #### C BC ####[facility] Dzjmtatkkd[address] [place], [place] [address]DrKianna Tripathi Eosinophils/100 WBC (Bld) 0.3 % Critically low 0.9-7.0 [facility] Comment on above: Performed By: #### C BC ####[facility] Jvgfvahjbm[address] [place], [place] [address]Dr. Airam Tripathi Erythrocyte distribution width (RBC) [Ratio] 13.6 % Normal 11.0-15.0 [facility] Comment on above: Performed By: #### C BC ####[facility] Ktdtupohbx[address] [place], [place] [address]DrKianna Tripathi Hematocrit (Bld) [Volume fraction] 28.9 % Critically low 36.0-48.0 [facility] Comment on above: Performed By: #### C BC ####[facility] G[address]xkwwlcyi69[address] [place], [place] [address]DrKianna Tripathi Hemoglobin (Bld) [Mass/Vol] 8.9 g/dL Critically low 12.0-16.0 [facility] Comment on above: Performed By: #### C BC ####[facility] Viqwmkzohw[address] [place], [place] [address]DrKianna Tripathi IG # 0.10 10e3/ul Critically high 0.00-0.03 [facility] Comment on above: Performed By: #### C BC ####[facility] Abjozfkbmn4[address] [place], [place] [address]DrKianna Tripathi IG % 1.3 % Critically high 0.0-0.5 [facility] Comment on above: Performed By: #### C BC ####[facility] Bttdyzrtej7[address] [place], [place] [address]DrKianna Tripathi LYMPH # 0.7 103/ul Critically low 1.2-3.8 [facility] Comment on above: Performed By: #### C BC ####[facility] Ngjbriuzdu8084 [place] [address]Dr. Airam Tripathi Lymphocytes/100 WBC (Bld) 8.1 % Critically low 20.5-60.0 [facility] Comment on above: Performed By: #### C BC ####[facility] Fariyopgtd[address] [place], [place] [address]Dr. Airam Tripathi MANUAL DIFF REQ NO Normal [facility] Comment on above: Performed By: #### C BC ####[facility] Wiyahdwblc99[address] [place], [place] [address]Dr. Airam Tripathi MCH (RBC) [Entitic mass] 29.4 pg Normal 26.7-34.0 [facility] Comment on above: Performed By: #### C BC ####[facility] Djzobbiptz32[address] [place], [place] [address]Dr. Airam Tripathi MCHC (RBC) [Mass/Vol] 30.8 g/dL Normal 29.9-35.2 [facility] Comment on above: Performed By: #### C BC ####[facility] Aednpwvrry[address] [place], [place] [address]Dr. Airam Tripathi MCV (RBC) [Entitic vol] 95.4 fL Normal 81.0-99.0 [facility] Comment on above: Performed By: #### C BC ####[facility] Altesvmrut[address]19[address] [place], [place] [address]Dr. Airam Tripathi MONO # 0.3 103/ul Normal 0.3-0.8 [facility] Comment on above: Performed By: #### C BC ####[facility] Wfosxrjtib[address] [place], [place] [address]Dr. Airam Tripathi Monocytes/100 WBC (Bld) 3.1 % Normal 1.7-12.0 [facility] Comment on above: Performed By: #### C BC ####[facility] Ewkrarbnun359[address] [place], [place] [address]Dr. Airam Tirpathi NEUT # 7.0 103/ul Critically high 1.4-6.5 [facility] Comment on above: Performed By: #### C BC ####[facility] Ebqnnhudxi6587 [place] [address]Dr. Airam Tripathi Neutrophils/100 WBC (Bld) 86.8 % Critically high 43.0-75.0 [facility] Comment on above: Performed By: #### C BC ####[facility] Dkdutvcrfs9247 [place] [address]Dr. Airam Tripathi Platelet mean volume (Bld) [Entitic vol] 8.3 fL Critically low 9.5-13.5 [facility] Comment on above: Performed By: #### C BC ####[facility] Alesbgzqde8[address] [place], [place] [address]Dr. Airam Tripathi PLT 279 103/ul Normal 150-450 [facility] Comment on above: Performed By: #### C BC ####[facility] Hcduprykvg[address] [place], [place] [address]DrKianna Tripathi RBC 3.03 106/ul Critically low 4.20-5.40 [facility] Comment on above: Performed By: #### C BC ####[facility] Aybmtzroda98[address] [place], [place] [address]DrKianna Tripathi WBC 8.0 103/ul Normal 4.0-11.0 [facility] Comment on above: Performed By: #### C BC ####[facility] Mfoiuncvxx12[address] [place], [place] [address]DrKianna Tripathi PROF 14(COMP METB)on 022 Albumin [Mass/Vol] 2.8 g/dL Critically low 3.4-5.0 [facility] Comment on above: Performed By: #### B ENVIRONMENTAL ENGINEERING ASSISTANT, CMP ####[facility] L[address]xjqzquz03[address] [place], [place] [address]Dr. Airam Tripathi Albumin/Globulin [Mass ratio] 0.9 {ratio} Normal [facility] Comment on above: Performed By: #### B ENVIRONMENTAL ENGINEERING ASSISTANT, CMP ####[facility] Sh[address]iqyvjy[address] [place], [place] [address]Dr. Airam Tripathi ALP [Catalytic activity/Vol] 136 U/L Critically high 46-116 [facility] Comment on above: Performed By: #### B ENVIRONMENTAL ENGINEERING ASSISTANT, CMP ####[facility] Ylveyhdokz3735 [place] [address]Dr. Airam Tripathi ALT [Catalytic activity/Vol] 17 U/L Normal 14-59 [facility] Comment on above: Performed By: #### B ENVIRONMENTAL ENGINEERING ASSISTANT, CMP ####[facility] Tfnmanbijm[address] [place], [place] [address]Dr. Airam Tripathi Anion gap [Moles/Vol] 12.9 mmol/L Normal Th [facility] Comment on above: Performed By: #### B ENVIRONMENTAL ENGINEERING ASSISTANT, CMP ####[facility] Qslxmoymkk[address] [place], [place] [address]Dr. Airam Tripathi AST [Catalytic activity/Vol] 24 U/L Normal 15-37 [facility] Comment on above: Performed By: #### B ENVIRONMENTAL ENGINEERING ASSISTANT, CMP ####[facility] Vkunabvrqj[address] [place], [place] [address]Dr. Airam Deuce Bilirubin [Mass/Vol] 0.2 mg/dL Normal 0.2-1.0 [facility] Comment on above: Performed By: #### B ENVIRONMENTAL ENGINEERING ASSISTANT, CMP ####[facility] J[address]xvzsmnuj8[address] [place], [place] [address]Dr. Airam Deuce Calcium [Mass/Vol] 8.7 mg/dL Normal 8.5-10.1 [facility] Comment on above: Performed By: #### B ENVIRONMENTAL ENGINEERING ASSISTANT, CMP ####[facility] Y[address]bcjgbxhe[address] [place], [place] [address]Dr. Airam Deuce Chloride [Moles/Vol] 102 mmol/L Normal 98-107 [facility] Comment on above: Performed By: #### B ENVIRONMENTAL ENGINEERING ASSISTANT, CMP ####[facility] Huvwbdkmbw[address] [place], [place] [address]Dr. Selenaneil Deuce CO2 [Moles/Vol] 23.8 mmol/L Normal 21.0-32.0 [facility] Comment on above: Performed By: #### B ENVIRONMENTAL ENGINEERING ASSISTANT, CMP ####[facility] Fikgzlyoum[address] [place], [place] [id number]. Airam Tripathi Creatinine [Mass/Vol] 1.08 mg/dL Critically high 0.55-1.02 [facility] Comment on above: Performed By: #### B ENVIRONMENTAL ENGINEERING ASSISTANT, CMP ####[facility] Ovnvtfuind0[address] [place], [place] [address]Dr. Airam Tripathi EGFR-AF [place] >60 Normal >=60 [facility] Comment on above: Performed By: #### B ENVIRONMENTAL ENGINEERING ASSISTANT, CMP ####[facility] E[address]xtggvusu[address] [place], [place] [address]Dr. Airam Tripathi EGFR-NON AF [place] 52 mL/min/1.73m2 Critically low >=60 [facility] Comment on above: Performed By: #### B ENVIRONMENTAL ENGINEERING ASSISTANT, CMP ####[facility] Duoopqeqrg[address] [place], [place] [address]Dr. Airam Tripathi Globulin (S) [Mass/Vol] 3.2 g/dL Normal [facility] Comment on above: Performed By: #### B ENVIRONMENTAL ENGINEERING ASSISTANT, CMP ####[facility] Pxusiubjct[address] [place], [place] [address]Dr. Airam Tripathi Glucose [Mass/Vol] 99 mg/dL Normal 74-106 [facility] Comment on above: Performed By: #### B ENVIRONMENTAL ENGINEERING ASSISTANT, CMP ####[facility] Tiilclcojs[address] [place], [place] [address]Dr. Airam Tripathi Potassium [Moles/Vol] 4.7 mmol/L Normal 3.5-5.1 [facility] Comment on above: Performed By: #### B ENVIRONMENTAL ENGINEERING ASSISTANT, CMP ####[facility] Qlnuidxrxm[address] [place], [place] [address]Dr. Airam Tripathi Protein [Mass/Vol] 6.0 g/dL Critically low 6.4-8.2 [facility] Comment on above: Performed By: #### B ENVIRONMENTAL ENGINEERING ASSISTANT, CMP ####[facility] Rzfpdwmgwn[address] [place], [place] [address]Dr. Airam Tripathi Sodium [Moles/Vol] 134 mmol/L Critically low 136-145 [facility] Comment on above: Performed By: #### B ENVIRONMENTAL ENGINEERING ASSISTANT, CMP ####[facility] [address] [place] [address]Dr. Airam Tripathi Urea nitrogen [Mass/Vol] 19.0 mg/dL Critically high 7.0-18.0 [facility] Comment on above: Performed By: #### B ENVIRONMENTAL ENGINEERING ASSISTANT, CMP ####[facility] Gjpbqasjpa[address] [place], [place] [address]Dr. Airam Tripathi Urea nitrogen/Creatinine [Mass ratio] 17.6 mg/mg Normal [facility] Comment on above: Performed By: #### B ENVIRONMENTAL ENGINEERING ASSISTANT, CMP ####[facility] Cwufgtlsuv[address] [place], [place] [address]Dr. Airam Tripathi PROTIMEon 06-17-2022 INR Coag (PPP) [Relative time] 1.00 {INR} Normal [facility] Comment on above: Performed By: #### P T ####[facility] Uptxdajune8[address] [place], [place] [address]Dr. Airam Tripathi INR GUIDELINES SEE BELOW Normal [facility] Comment on above: Result Comment: SIDRA RED INR: 2.0 - 3.0 CONDITIONS NOT LISTED BELOW 2.5 - 3.5 FOR PROSTHETIC HEART VALVE REPLACEMENT 2.5 - 3.5 RECURRENT THROMBOSIS Performed By: #### P T ####[facility] Yyrfiylflr[address] [place], [place] [address]Dr. Airam Tripathi PT Coag (PPP) [Time] 10.8 s Normal 9.0-11.6 [facility] Comment on above: Performed By: #### P T ####[facility] Huewifkfob7[address] [place], [place] [address]Dr. Airam Tripathi PTTon 06-17-2022 aPTT Coag (Bld) [Time] 27.2 s Normal 22.3-36.2 [facility] Comment on above: Performed By: #### P TT ####[facility] Izgbdkjepr64[address] [place], [place] [address]Dr. Airam Tripathi BNPon 06-16-2022 Natriuretic peptide B (Bld) [Mass/Vol] 2293.0 pg/mL Critically high <=900.0 [facility] Comment on above: Performed By: #### C MP, BNP ####[facility] [address] [place] [id number]. Airam Tripathi CBC AUTO DIFFon 06-16-2022 BASO # 0.0 103/ul Normal 0.0-0.1 [facility] Comment on above: Performed By: #### C BC ####[facility] [address] [place] [address]Dr. Airam Tripathi Basophils/100 WBC (Bld) 0.4 % Normal 0.2-2.0 [facility] Comment on above: Performed By: #### C BC ####[facility] Lncbzfeuqr8[address] [place], [place] [address]Dr. Airam Tripathi EO # 0.2 103/ul Normal 0.0-0.7 [facility] Comment on above: Performed By: #### C BC ####[facility] Qthxzukkev205[address] [place], [place] [address]Dr. Airam Tripathi Eosinophils/100 WBC (Bld) 3.0 % Normal 0.9-7.0 [facility] Comment on above: Performed By: #### C BC ####[facility] Uuthqvdkvm[address] [place], [place] [address]Dr. Airam Tripathi Erythrocyte distribution width (RBC) [Ratio] 13.3 % Normal 11.0-15.0 [facility] Comment on above: Performed By: #### C BC ####[facility] Zbmwzszyog49[address] [place], [place] [address]Dr. Airam Tripathi Hematocrit (Bld) [Volume fraction] 26.2 % Critically low 36.0-48.0 [facility] Comment on above: Performed By: #### C BC ####[facility] Xnsbykydnt[address] [place], [place] [address]Dr. Airam Tripathi Hemoglobin (Bld) [Mass/Vol] 8.3 g/dL Critically low 12.0-16.0 [facility] Comment on above: Performed By: #### C BC ####[facility] Phxzswzeoj01[address] [place], [place] [address]Dr. Selenaneil Tripathi IG # 0.08 10e3/ul Critically high 0.00-0.03 [facility] Comment on above: Performed By: #### C BC ####[facility] [address] [place] [address]Dr. Selenaneil Tripathi IG % 1.1 % Critically high 0.0-0.5 [facility] Comment on above: Performed By: #### C BC ####[facility] [address] [place] [address]Dr. Airam Deuce LYMPH # 1.2 103/ul Normal 1.2-3.8 [facility] Comment on above: Performed By: #### C BC ####[facility] [address] [place] [address]DrKianna Selenaneil Tripathi Lymphocytes/100 WBC (Bld) 17.3 % Critically low 20.5-60.0 [facility] Comment on above: Performed By: #### C BC ####[facility] Ofgzkkcsim9184[address] [place], [place] [address]Dr. Selenaneil Tripathi MANUAL DIFF REQ NO Normal [facility] Comment on above: Performed By: #### C BC ####[facility] [address] [place] [phone]. Airam Deuce MCH (RBC) [Entitic mass] 30.3 pg Normal 26.7-34.0 [facility] Comment on above: Performed By: #### C BC ####[facility] [address] [place], [place] [id number]. Airam Deuce MCHC (RBC) [Mass/Vol] 31.7 g/dL Normal 29.9-35.2 [facility] Comment on above: Performed By: #### C BC ####[facility] Sqbawdsy[address] [place], [place] [id number] Airam Deuce MCV (RBC) [Entitic vol] 95.6 fL Normal 81.0-99.0 [facility] Comment on above: Performed By: #### C BC ####[facility] [address] [place] [address]DrKianna Tripathi MONO # 0.5 103/ul Normal 0.3-0.8 [facility] Comment on above: Performed By: #### C BC ####[facility] [address] [place] [phone]. Airam Tripathi Monocytes/100 WBC (Bld) 7.1 % Normal 1.7-12.0 [facility] Comment on above: Performed By: #### C BC ####[facility] [address]rc[address] [place] [phone]. Airam Tripathi NEUT # 5.0 103/ul Normal 1.4-6.5 [facility] Comment on above: Performed By: #### C BC ####[facility] [address]ewb[address] [place] [phone]. Airam Tripathi Neutrophils/100 WBC (Bld) 71.1 % Normal 43.0-75.0 [facility] Comment on above: Performed By: #### C BC ####[facility] V[address]zls[address] [place] [phone]. Airam Tripathi Platelet mean volume (Bld) [Entitic vol] 8.2 fL Critically low 9.5-13.5 [facility] Comment on above: Performed By: #### C BC ####[facility] [address] [place] [id number]. Airam Tripathi PLT 247 103/ul Normal 150-450 [facility] Comment on above: Performed By: #### C BC ####[facility] Xuqwnhwnwt4[address] [place] [phone]. Airam Tripathi RBC 2.74 106/ul Critically low 4.20-5.40 [facility] Comment on above: Performed By: #### C BC ####[facility] Xc[address]kvyka6[address] [place] [phone]. Airam Tripathi WBC 7.1 103/ul Normal 4.0-11.0 [facility] Comment on above: Performed By: #### C BC ####[facility] Nyg[address]lagds[address] [place] [phone]. Airam Tripathi CTA CHEST WO W CONon 022 CTA CHEST WO W CON Normal [facility] PROF 14(COMP METB)on 022 Albumin [Mass/Vol] 2.6 g/dL Critically low 3.4-5.0 [facility] Comment on above: Performed By: #### C MP, BNP ####[facility] [address] [place] [address]Dr. Airam Tripathi Albumin/Globulin [Mass ratio] 0.8 {ratio} Normal [facility] Comment on above: Performed By: #### C MP, BNP ####[facility] [address]wrbr[address] [place] [address]Dr. Airam Tripathi ALP [Catalytic activity/Vol] 130 U/L Critically high 46-116 [facility] Comment on above: Performed By: #### C MP, BNP ####[facility] Xgbtueoyae[address] [place], [place] [address]Dr. Airam Tripathi ALT [Catalytic activity/Vol] 12 U/L Critically low 14-59 [facility] Comment on above: Performed By: #### C MP, BNP ####[facility] Oqhfbqmcdu[address] [place], [place] [address]Dr. Airam Tripathi Anion gap [Moles/Vol] 11.8 mmol/L Normal [facility] Comment on above: Performed By: #### C MP, BNP ####[facility] Htqjzgerot20[address] [place], [place] [address]Dr. Airam Tripathi AST [Catalytic activity/Vol] 22 U/L Normal 15-37 [facility] Comment on above: Performed By: #### C MP, BNP ####[facility] Smiyemwovm1[address] [place], [place] [address]Dr. Airam Tripathi Bilirubin [Mass/Vol] 0.2 mg/dL Normal 0.2-1.0 [facility] Comment on above: Performed By: #### C MP, BNP ####[facility] Juilwtwbsb[address] [place], [place] [address]Dr. Airam Tripathi Calcium [Mass/Vol] 8.0 mg/dL Critically low 8.5-10.1 [facility] Comment on above: Performed By: #### C MP, BNP ####[facility] [address] [place] [address]Dr. Airam Tripathi Chloride [Moles/Vol] 104 mmol/L Normal 98-107 [facility] Comment on above: Performed By: #### C MP, BNP ####[facility] X[address]ocwcxa40[address] [place] [address]Dr. Airam Tripathi CO2 [Moles/Vol] 22.8 mmol/L Normal 21.0-32.0 [facility] Comment on above: Performed By: #### C MP, BNP ####[facility] [address]ens[address] [place] [address]Dr. Airam Tripathi Creatinine [Mass/Vol] 1.07 mg/dL Critically high 0.55-1.02 [facility] Comment on above: Performed By: #### C MP, BNP ####[facility] Pzmnsoefip[address] [place], [place] [address]Dr. Airam Tripathi EGFR-AF [place] >60 Normal >=60 [facility] Comment on above: Performed By: #### C MP, BNP ####[facility] Lftoadhbec8[address] [place], [place] [address]Dr. Airam Tripathi EGFR-NON AF [place] 52 mL/min/1.73m2 Critically low >=60 [facility] Comment on above: Performed By: #### C MP, BNP ####[facility] [address] [place] [address]Dr. Airam Tripathi Globulin (S) [Mass/Vol] 3.1 g/dL Normal [facility] Comment on above: Performed By: #### C MP, BNP ####[facility] Z[address] [place] [address]Dr. Airam Tripathi Glucose [Mass/Vol] 85 mg/dL Normal 74-106 [facility] Comment on above: Performed By: #### C MP, BNP ####[facility] Dnckqgbigl4730 [place] [address]Dr. Airam Tripathi Potassium [Moles/Vol] 4.6 mmol/L Normal 3.5-5.1 [facility] Comment on above: Performed By: #### C MP, BNP ####[facility] Lspztepjhd[address] [place], [place] [address]Dr. Airam Tripathi Protein [Mass/Vol] 5.7 g/dL Critically low 6.4-8.2 [facility] Comment on above: Performed By: #### C MP, BNP ####[facility] Mouhpgphjv[address] [place], [place] [address]Dr. Airam Tripathi Sodium [Moles/Vol] 134 mmol/L Critically low 136-145 [facility] Comment on above: Performed By: #### C MP, BNP ####[facility] Dupcxxanyw0647[address] [place], [place] [address]Dr. Selenaneil Tripathi Urea nitrogen [Mass/Vol] 24.0 mg/dL Critically high 7.0-18.0 [facility] Comment on above: Performed By: #### C MP, BNP ####[facility] Xkesiezvrq6[address] [place], [place] [address]Dr. Airam Tripathi Urea nitrogen/Creatinine [Mass ratio] 22.4 mg/mg Normal [facility] Comment on above: Performed By: #### C MP, BNP ####[facility] Vwjrzwwrnn[address] [place], [place] [address]Dr. Airam Tripathi BNPon 06-15-2022 Natriuretic peptide B (Bld) [Mass/Vol] 934.0 pg/mL Critically high <=900.0 [facility] Comment on above: Performed By: #### C MP, BNP ####[facility] Lucsgyqhco[address] [place], [place] [address]Dr. Selenaneil Deuce CBC AUTO DIFFon 06-15-2022 BASO # 0.0 103/ul Normal 0.0-0.1 [facility] Comment on above: Performed By: #### C BC ####[facility] K[address]qyvcfmn14[address] [place], [place] [address]Dr. Selenaneil Tripathi Basophils/100 WBC (Bld) 0.2 % Normal 0.2-2.0 [facility] Comment on above: Performed By: #### C BC ####[facility] Nlonqxcehq7513[address] [place], [place] [address]Dr. Airam Tripathi EO # 0.1 103/ul Normal 0.0-0.7 [facility] Comment on above: Performed By: #### C BC ####[facility] [address]ux[address]omorf[address] [place] [address]Dr. Airam Deuce Eosinophils/100 WBC (Bld) 2.1 % Normal 0.9-7.0 [facility] Comment on above: Performed By: #### C BC ####[facility] Vpfdepcfff[address] [place], [place] [address]Dr. Airam Deuce Erythrocyte distribution width (RBC) [Ratio] 12.9 % Normal 11.0-15.0 [facility] Comment on above: Performed By: #### C BC ####[facility] Nmzglmjqyw4424[address] [place], [place] [address]Dr. Airam Tripathi Hematocrit (Bld) [Volume fraction] 24.9 % Critically low 36.0-48.0 [facility] Comment on above: Performed By: #### C BC ####[facility] Olgjiypjrd366[address] [place], [place] [address]Dr. Airam Tripathi Hemoglobin (Bld) [Mass/Vol] 7.9 g/dL Critically low 12.0-16.0 [facility] Comment on above: Performed By: #### C BC ####[facility] Rfhlaguqlm[address] [place], [place] [address]Dr. Airam Tripathi IG # 0.05 10e3/ul Critically high 0.00-0.03 [facility] Comment on above: Performed By: #### C BC ####[facility] Imfqdumjgv14[address] [place], [place] [address]Dr. Airam Tripathi IG % 0.8 % Critically high 0.0-0.5 [facility] Comment on above: Performed By: #### C BC ####[facility] Lnzjdxgqis18[address] [place], [place] [address]DrKianna Tripathi LYMPH # 0.9 103/ul Critically low 1.2-3.8 [facility] Comment on above: Performed By: #### C BC ####[facility] Xnvywtnmay6[address] [place], [place] [address]DrKianna Tripathi Lymphocytes/100 WBC (Bld) 13.7 % Critically low 20.5-60.0 [facility] Comment on above: Performed By: #### C BC ####[facility] Hgnbvuchrs[address] [place], [place] [address]DrKianna Tripathi MANUAL DIFF REQ NO Normal [facility] Comment on above: Performed By: #### C BC ####[facility] [address]fkl[address] [place] [address]DriKanna Tripathi MCH (RBC) [Entitic mass] 30.2 pg Normal 26.7-34.0 [facility] Comment on above: Performed By: #### C BC ####[facility] Amkfpvjdha[address] [place], [place] [address]DrKianna Tripathi MCHC (RBC) [Mass/Vol] 31.7 g/dL Normal 29.9-35.2 [facility] Comment on above: Performed By: #### C BC ####[facility] Mueckjzqmv[address] [place], [place] [address]DrKianna Tripathi MCV (RBC) [Entitic vol] 95.0 fL Normal 81.0-99.0 [facility] Comment on above: Performed By: #### C BC ####[facility] Qxqmogxssi2917[address] [place], [place] [address]DrKianna Tripathi MONO # 0.4 103/ul Normal 0.3-0.8 [facility] Comment on above: Performed By: #### C BC ####[facility] Gxmozjbvvr5438[address] [place], [place] [address]DrKianna Tripathi Monocytes/100 WBC (Bld) 6.7 % Normal 1.7-12.0 [facility] Comment on above: Performed By: #### C BC ####[facility] Vsjvvssjvc90[address] [place], [place] [address]DrKianna Tripathi NEUT # 5.0 103/ul Normal 1.4-6.5 [facility] Comment on above: Performed By: #### C BC ####[facility] Xnajcrgtfl9[address] [place], [place] [address]DrKianna Tripathi Neutrophils/100 WBC (Bld) 76.5 % Critically high 43.0-75.0 [facility] Comment on above: Performed By: #### C BC ####[facility] Xzzhwrfhbi9313[address] [place], [place] [address]Dr. Airam Tripathi Platelet mean volume (Bld) [Entitic vol] 8.4 fL Critically low 9.5-13.5 [facility] Comment on above: Performed By: #### C BC ####[facility] Fhtnkvfeop040[address] [place], [place] [address]Dr. Airam Deuce PLT 202 103/ul Normal 150-450 [facility] Comment on above: Performed By: #### C BC ####[facility] Cftpteklvf616[address] [place], [place] [address]Dr. Airam Deuce RBC 2.62 106/ul Critically low 4.20-5.40 [facility] Comment on above: Performed By: #### C BC ####[facility] Goyvzmsqno7[address] [place], [place] [address]Dr. Airam Deuce WBC 6.6 103/ul Normal 4.0-11.0 [facility] Comment on above: Performed By: #### C BC ####[facility] Ixpwyjktoh6725[address] [place], [place] [address]DrKianna Airam Deuce OSMOLALITYon 06-15-2022 Osmolality [Osmolality] 269 mosm/kg Critically low 275-295 [facility] Comment on above: Performed By: #### O SMO ####[facility] Ps[address]vbsnpn[address] [place], [place] [address]DrKianna Selenaneil Tripathi PROF 14(COMP METB)on 022 Albumin [Mass/Vol] 2.5 g/dL Critically low 3.4-5.0 e [facility] Comment on above: Performed By: #### C MP, BNP ####[facility] Bktrswlxzo26[address] [place], [place] [address]Dr. Airam Tripathi Albumin/Globulin [Mass ratio] 0.9 {ratio} Normal [facility] Comment on above: Performed By: #### C MP, BNP ####[facility] Z[address]nmwat4[address] [place] [address]Dr. Airam Tripathi ALP [Catalytic activity/Vol] 128 U/L Critically high 46-116 [facility] Comment on above: Performed By: #### C MP, BNP ####[facility] Zgfanhpwpv69[address] [place], [place] [address]Dr. Airam Tripathi ALT [Catalytic activity/Vol] 14 U/L Normal 14-59 [facility] Comment on above: Performed By: #### C MP, BNP ####[facility] Sqfrflgclz09[address] [place], [place] [address]Dr. Airam Tripathi Anion gap [Moles/Vol] 10.4 mmol/L Normal [facility] Comment on above: Performed By: #### C MP, BNP ####[facility] P[address]jrzngbp[address] [place], [place] [address]Dr. Airam Tripathi AST [Catalytic activity/Vol] 23 U/L Normal 15-37 [facility] Comment on above: Performed By: #### C MP, BNP ####[facility] Wgnpuodlpb[address] [place], [place] [address]Dr. Airam Tripathi Bilirubin [Mass/Vol] 0.2 mg/dL Normal 0.2-1.0 [facility] Comment on above: Performed By: #### C MP, BNP ####[facility] Zgaosqerhl767[address] [place], [place] [address]Dr. Airam Tripathi Calcium [Mass/Vol] 7.4 mg/dL Critically low 8.5-10.1 [facility] Comment on above: Performed By: #### C MP, BNP ####[facility] Ulaipmjcib9428[address] [place], [place] [address]Dr. Airam Tripathi Chloride [Moles/Vol] 99 mmol/L Normal 98-107 [facility] Comment on above: Performed By: #### C MP, BNP ####[facility] Zpvjfhbocp86[address] [place], [place] [address]Dr. Airam Tripathi CO2 [Moles/Vol] 24.1 mmol/L Normal 21.0-32.0 [facility] Comment on above: Performed By: #### C MP, BNP ####[facility] Y[address]qnogv9[address] [place] [phone]. Airam Tripathi Creatinine [Mass/Vol] 1.45 mg/dL Critically high 0.55-1.02 [facility] Comment on above: Performed By: #### C MP, BNP ####[facility] Sfwtescvmv35[address] [place], [place] [address]Dr. Airam Tripathi EGFR-AF [place] 45 mL/min/1.73m2 Critically low >=60 [facility] Comment on above: Performed By: #### C MP, BNP ####[facility] Uagqlfravk407[address] [place], [place] [address]Dr. Airam Tripathi EGFR-NON AF [place] 37 mL/min/1.73m2 Critically low >=60 [facility] Comment on above: Performed By: #### C MP, BNP ####[facility] Unvcpxerdk3869[address] [place], [place] [address]Dr. Airam Tripathi Globulin (S) [Mass/Vol] 2.8 g/dL Normal [facility] Comment on above: Performed By: #### C MP, BNP ####[facility] Gpxkqcxfld4832[address] [place], [place] [address]Dr. Airam Tripathi Glucose [Mass/Vol] 82 mg/dL Normal 74-106 [facility] Comment on above: Performed By: #### C MP, BNP ####[facility] Qlyslpsmjz35[address] [place], [place] [address]Dr. Airam Tripathi Potassium [Moles/Vol] 4.5 mmol/L Normal 3.5-5.1 [facility] Comment on above: Performed By: #### C MP, BNP ####[facility] Gvkvmrayib2558[address] [place], [place] [address]Dr. Airam Tripathi Protein [Mass/Vol] 5.3 g/dL Critically low 6.4-8.2 [facility] Comment on above: Performed By: #### C MP, BNP ####[facility] Dbwuhqtvit7259[address] [place], [place] [address]Dr. Airam Tripathi Sodium [Moles/Vol] 129 mmol/L Critically low 136-145 [facility] Comment on above: Performed By: #### C MP, BNP ####[facility] Wyunlomoyr8616[address] [place], [place] [address]Dr. Airam Tripathi Urea nitrogen [Mass/Vol] 35.0 mg/dL Critically high 7.0-18.0 [facility] Comment on above: Performed By: #### C MP, BNP ####[facility] Htxrvmrpye[address] [place], [place] [address]Dr. Selenaneli Tripathi Urea nitrogen/Creatinine [Mass ratio] 24.1 mg/mg Normal [facility] Comment on above: Performed By: #### C MP, BNP ####[facility] Xcgdttenau27[address] [place], [place] [address]Dr. Airam Tripathi T3, TOTAL (TRIIODOTHYRONINE) on 06-15-2022 T3, TOTAL 113 ng/dL Normal 71-180 [facility] Comment on above: Performed By: #### T 3TOTAL ####[facility] [address]okcrwuaxl96[address] [place], [place] [address]Dr. Airam Tripathi BNPon 06-14-2022 Natriuretic peptide B (Bld) [Mass/Vol] 1024.0 pg/mL Critically high <=900.0 [facility] Comment on above: Performed By: #### B ENVIRONMENTAL ENGINEERING ASSISTANT, CMP ####[facility] Qycshevyaa[address] [place], [place] [address]Dr. Airam Tripathi CARDIAC CONSUELO 3-6on 2 CK [Catalytic activity/Vol] 116 U/L Normal 26-192 [facility] Comment on above: Performed By: #### C MREP ####[facility] Bbhjaxgjsg16[address] [place], [place] [address]Dr. Airam Deuce CK.MB [Mass/Vol] ng/mL Normal <=3.60 [facility] Comment on above: Performed By: #### C MREP ####[facility] Makuzdldos[address] [place], [place] [address]Dr. Airam Tripathi HSTROP 6.0 pg/mL Normal 4.0-51.3 [facility] Comment on above: Result Comment: CUT- OFF POINTS HAVE BEEN ESTABLISHED BASED ON THE FOURTH UNIVERSAL DEFINITIONS OF MYOCARDIALINFARCTION. THE UPPER REFERENCE LIMIT (URL) OF TROPONIN, DEFINED THE 99TH PERCENTILE OFcTnI DISTRIBUTION IN A REFERENCE POPULATION, HAS BEEN CONFIRMED THE DECISION THRESHOLDFOR DC DIAGNOSIS. Performed By: #### C MREP ####[facility] [facility] [address] [place] [address]Dr. Airam Tripathi CBC AUTO DIFFon 06-14-2022 BASO # 0.0 103/ul Normal 0.0-0.1 [facility] Comment on above: Performed By: #### C BC ####[facility] [address]msws[address] [place] [address]Dr. Airam Tripathi Basophils/100 WBC (Bld) 0.3 % Normal 0.2-2.0 [facility] Comment on above: Performed By: #### C BC ####[facility] Rihtraouov[address] [place], [place] [address]Dr. Airam Tripathi EO # 0.2 103/ul Normal 0.0-0.7 [facility] Comment on above: Performed By: #### C BC ####[facility] [address]pu[address] [place] [address]Dr. Airam Tripathi Eosinophils/100 WBC (Bld) 2.0 % Normal 0.9-7.0 [facility] Comment on above: Performed By: #### C BC ####[facility] Baxjdeyaua[address] [place] [address]Dr. Airam Tripathi Erythrocyte distribution width (RBC) [Ratio] 12.8 % Normal 11.0-15.0 [facility] Comment on above: Performed By: #### C BC ####[facility] [address] [place] [address]Dr. Airam Tripathi Hematocrit (Bld) [Volume fraction] 27.4 % Critically low 36.0-48.0 [facility] Comment on above: Performed By: #### C BC ####[facility] Efpmkmhwzv[address] [place], [place] [address]Dr. Airam Tripathi Hemoglobin (Bld) [Mass/Vol] 8.7 g/dL Critically low 12.0-16.0 [facility] Comment on above: Performed By: #### C BC ####[facility] [address]fr[address]um[address] [place] [id number]. Airam Tripathi IG # 0.11 10e3/ul Critically high 0.00-0.03 [facility] Comment on above: Performed By: #### C BC ####[facility] Wyfy[address]dlkq[address] [place] [id number]. Airam Tripathi IG % 1.1 % Critically high 0.0-0.5 [facility] Comment on above: Performed By: #### C BC ####[facility] Upxqsmosvl[address] [place], [place] [address]Dr. Airam Tripathi LYMPH # 0.9 103/ul Critically low 1.2-3.8 [facility] Comment on above: Performed By: #### C BC ####[facility] Jzyssbysvv[address] [place], [place] [address]Dr. Selenaneil Tripathi Lymphocytes/100 WBC (Bld) 9.7 % Critically low 20.5-60.0 [facility] Comment on above: Performed By: #### C BC ####[facility] Ewltilxuex[address] [place], [place] [address]Dr. Airam Tripathi MANUAL DIFF REQ NO Normal [facility] Comment on above: Performed By: #### C BC ####[facility] Wlyezmweyu[address] [place], [place] [address]Dr. Airam Tripathi MCH (RBC) [Entitic mass] 30.0 pg Normal 26.7-34.0 [facility] Comment on above: Performed By: #### C BC ####[facility] Hkamkaogkp[address] [place], [place] [address]Dr. Airam Tripathi MCHC (RBC) [Mass/Vol] 31.8 g/dL Normal 29.9-35.2 [facility] Comment on above: Performed By: #### C BC ####[facility] [address]jw[address] [place] [address]Dr. Airam Tripathi MCV (RBC) [Entitic vol] 94.5 fL Normal 81.0-99.0 [facility] Comment on above: Performed By: #### C BC ####[facility] Lvatqiiabi0[address] [place] [id number]. Airam Tripathi MONO # 0.6 103/ul Normal 0.3-0.8 [facility] Comment on above: Performed By: #### C BC ####[facility] Utvivjcsxo59[address] [place] [address]Dr. Airam Tripathi Monocytes/100 WBC (Bld) 5.7 % Normal 1.7-12.0 [facility] Comment on above: Performed By: #### C BC ####[facility] Dtxk[address]zlnf[address] [place] [address]Dr. Airam Tripathi NEUT # 7.8 103/ul Critically high 1.4-6.5 [facility] Comment on above: Performed By: #### C BC ####[facility] Ty[address]fetvtw[address] [place] [address]Dr. Airam Tripathi Neutrophils/100 WBC (Bld) 81.2 % Critically high 43.0-75.0 [facility] Comment on above: Performed By: #### C BC ####[facility] [address]krpjes[address] [place] [address]Dr. Airam Tripathi Platelet mean volume (Bld) [Entitic vol] 8.6 fL Critically low 9.5-13.5 [facility] Comment on above: Performed By: #### C BC ####[facility] [address]veyasqu[address] [place] [id number]. Airam Tripathi PLT 283 103/ul Normal 150-450 [facility] Comment on above: Performed By: #### C BC ####[facility] [address] [place], [place] [address]Dr. Airam Tripathi RBC 2.90 106/ul Critically low 4.20-5.40 [facility] Comment on above: Performed By: #### C BC ####[facility] Rmuopuacxz12[address] [place] [phone]. Airam Tripathi WBC 9.6 103/ul Normal 4.0-11.0 [facility] Comment on above: Performed By: #### C BC ####[facility] Qxxhtrkssc[address] [place] [address]Dr. Airam Tripathi OSMOLALITYon 06-14-2022 Osmolality [Osmolality] 273 mosm/kg Critically low 275-295 [facility] Comment on above: Performed By: #### O SMO ####[facility] Rsgnirgydn[address] [place], [place] [address]Dr. Airam Tripathi PROF 14(COMP METB)on 022 Albumin [Mass/Vol] 3.2 g/dL Critically low 3.4-5.0 [facility] Comment on above: Performed By: #### B ENVIRONMENTAL ENGINEERING ASSISTANT, CMP ####[facility] Wfreodxoaf[address] [place], [place] [address]Dr. Airam Tripathi Albumin/Globulin [Mass ratio] 1.0 {ratio} Normal [facility] Comment on above: Performed By: #### B ENVIRONMENTAL ENGINEERING ASSISTANT, CMP ####[facility] Tfiempxfre[address] [place], [place] [address]Dr. Airam Tripathi ALP [Catalytic activity/Vol] 154 U/L Critically high 46-116 [facility] Comment on above: Performed By: #### B ENVIRONMENTAL ENGINEERING ASSISTANT, CMP ####[facility] Ywkmtevbod[address] [place], [place] [address]Dr. Airam Tripathi ALT [Catalytic activity/Vol] 17 U/L Normal 14-59 [facility] Comment on above: Performed By: #### B ENVIRONMENTAL ENGINEERING ASSISTANT, CMP ####[facility] [address] [place] [address]Dr. Airam Tripathi Anion gap [Moles/Vol] 12.0 mmol/L Normal [facility] Comment on above: Performed By: #### B ENVIRONMENTAL ENGINEERING ASSISTANT, CMP ####[facility] [address]zdko[address] [place] [address]Dr. Airam Tripathi AST [Catalytic activity/Vol] 25 U/L Normal 15-37 [facility] Comment on above: Performed By: #### B ENVIRONMENTAL ENGINEERING ASSISTANT, CMP ####[facility] Ecujivfhio0425[address] [place], [place] [address]Dr. Airam Tripathi Bilirubin [Mass/Vol] 0.3 mg/dL Normal 0.2-1.0 [facility] Comment on above: Performed By: #### B ENVIRONMENTAL ENGINEERING ASSISTANT, CMP ####[facility] [address]dpf[address] [place] [phone]. Airam Tripathi Calcium [Mass/Vol] 7.6 mg/dL Critically low 8.5-10.1 [facility] Comment on above: Performed By: #### B ENVIRONMENTAL ENGINEERING ASSISTANT, CMP ####[facility] Jtqnfopoak[address] [place], [place] [address]Dr. Airam Tripathi Chloride [Moles/Vol] 92 mmol/L Critically low 98-107 [facility] Comment on above: Performed By: #### B ENVIRONMENTAL ENGINEERING ASSISTANT, CMP ####[facility] Feucemscmf413[address] [place], [place] [address]Dr. Airam Tripathi CO2 [Moles/Vol] 25.2 mmol/L Normal 21.0-32.0 [facility] Comment on above: Performed By: #### B ENVIRONMENTAL ENGINEERING ASSISTANT, CMP ####[facility] T[address]azbevvvx[address] [place], [place] [address]Dr. Airam Tripathi Creatinine [Mass/Vol] 1.83 mg/dL Critically high 0.55-1.02 [facility] Comment on above: Performed By: #### B ENVIRONMENTAL ENGINEERING ASSISTANT, CMP ####[facility] Unmvncewsq8125[address] [place], [place] [address]Dr. Airam Tripathi EGFR-AF [place] 34 mL/min/1.73m2 Critically low >=60 [facility] Comment on above: Performed By: #### B ENVIRONMENTAL ENGINEERING ASSISTANT, CMP ####[facility] Aipqqivwrc[address] [place], [place] [address]Dr. Airam Tripathi EGFR-NON AF [place] 28 mL/min/1.73m2 Critically low >=60 [facility] Comment on above: Performed By: #### B ENVIRONMENTAL ENGINEERING ASSISTANT, CMP ####[facility] F[address]ajutfzgj[address] [place], [place] [address]Dr. Airam Tripathi Globulin (S) [Mass/Vol] 3.1 g/dL Normal [facility] Comment on above: Performed By: #### B ENVIRONMENTAL ENGINEERING ASSISTANT, CMP ####[facility] Hikapzsuys[address] [place], [place] [address]Dr. Airam Tripathi Glucose [Mass/Vol] 77 mg/dL Normal 74-106 [facility] Comment on above: Performed By: #### B ENVIRONMENTAL ENGINEERING ASSISTANT, CMP ####[facility] Uediprutwp0[address] [place], [place] [address]Dr. Airam Tripathi Potassium [Moles/Vol] 4.2 mmol/L Normal 3.5-5.1 [facility] Comment on above: Performed By: #### B ENVIRONMENTAL ENGINEERING ASSISTANT, CMP ####[facility] Strxwhzwuf5[address] [place], [place] [address]Dr. Airam Tripathi Protein [Mass/Vol] 6.3 g/dL Critically low 6.4-8.2 [facility] Comment on above: Performed By: #### B ENVIRONMENTAL ENGINEERING ASSISTANT, CMP ####[facility] Glininrkoz[address] [place], [place] [address]Dr. Airam Tripathi Sodium [Moles/Vol] 125 mmol/L Critically low 136-145 [facility] Comment on above: Performed By: #### B ENVIRONMENTAL ENGINEERING ASSISTANT, CMP ####[facility] [address]tjijkeqfh[address] [place], [place] [address]Dr. Airam Tripathi Urea nitrogen [Mass/Vol] 35.0 mg/dL Critically high 7.0-18.0 [facility] Comment on above: Performed By: #### B ENVIRONMENTAL ENGINEERING ASSISTANT, CMP ####[facility] Kqvajuugah[address] [place], [place] [address]Dr. Airam Tripathi Urea nitrogen/Creatinine [Mass ratio] 19.1 mg/mg Normal [facility] Comment on above: Performed By: #### B ENVIRONMENTAL ENGINEERING ASSISTANT, CMP ####[facility] Yfkdvjlans4[address] [place], [place] [address]Dr. Airam Tripathi UA RANDOM W/MICROSCOPICon BACTERIA TRACE Abnormal NONE SEEN [facility] Comment on above: Performed By: #### U AMIC ####[facility] Phhuwoilyp[address] [place], [place] [address]Dr. Airam Tripathi Bilirubin Ql (U) Negative Normal NEGATIVE [facility] Comment on above: Performed By: #### U AMIC ####[facility] Gxciqissdn[address] [place], [place] [address]Dr. Aiarm Tripathi CAST NONE SEEN Normal NONE SEEN [facility] Comment on above: Performed By: #### U AMIC ####[facility] [address]ufba[address] [place] [address]Dr. Airam Tripathi Clarity (U) CLEAR Normal CLEAR [facility] Comment on above: Performed By: #### U AMIC ####[facility] On[address]xfwesex[address] [place] [address]Dr. Selenaneil Tripathi Color (U) LT. YELLOW Normal YELLOW [facility] Comment on above: Performed By: #### U AMIC ####[facility] [address] [place] [address]Dr. Selenaneil Tripathi Crystals LM Nom (Urine sed) NONE SEEN Normal NONE SEEN [facility] Comment on above: Performed By: #### U AMIC ####[facility] Okcjnppdtp[address] [place], [place] [address]Dr. Airam Tripathi Epithelial cells LM Ql (Urine sed) FEW Abnormal NONE SEEN /RARE [facility] Comment on above: Performed By: #### U AMIC ####[facility] Kqkeputrak[address] [place], [place] [address]Dr. Airam Tripathi Glucose Ql (U) Negative Normal NEGATIVE [facility] Comment on above: Performed By: #### U AMIC ####[facility] Jnatoabenu1[address] [place], [place] [address]Dr. Yilan Tripathi Hemoglobin Ql (U) Negative Normal NEGATIVE [facility] Comment on above: Performed By: #### U AMIC ####[facility] Otidrwyqmj[address] [place], [place] [address]Dr. Selenalan Tripathi Ketones Ql (U) Negative Normal NEGATIVE [facility] Comment on above: Performed By: #### U AMIC ####[facility] W[address]qejqdfkr[address] [place], [place] [address]Dr. Selenalan Tripathi LEUKOCYTES MODERATE Abnormal NEGATIVE [facility] Comment on above: Performed By: #### U AMIC ####[facility] Wclgcripxj[address] [place], [place] [address]Dr. Yilan Tripathi MUCOUS NONE SEEN Normal NONE SEEN [facility] Comment on above: Performed By: #### U AMIC ####[facility] Or[address]vuadz[address] [place] [address]Dr. Selenaneil Tripathi Nitrite Ql (U) Negative Normal NEGATIVE [facility] Comment on above: Performed By: #### U AMIC ####[facility] Zswzgfhrcm038[address] [place] [address]Dr. Airam Tripathi pH (U) 5.5 [pH] Normal 5-9 [facility] Comment on above: Performed By: #### U AMIC ####[facility] Brzttf[address]gw36[address] [place] [address]Dr. Airam Tripathi RBC 0-2 Normal 0-2 [facility] Comment on above: Performed By: #### U AMIC ####[facility] I[address]ugcvzxfr[address] [place], [place] [address]Dr. Airam Tripathi SPEC GRAVITY 1.020 Normal 1.005-<=1. 025 [facility] Comment on above: Performed By: #### U AMIC ####[facility] Gbcigavvem[address] [place], [place] [address]Dr. Airam Tripathi UA PROTEIN Negative Normal NEGATIVE/ TRACE [facility] Comment on above: Performed By: #### U AMIC ####[facility] Yohehnrgkv[address] [place], [place] [address]Dr. Airam Tripathi Urobilinogen Qn (U) 0.2 {Ligia'U}/dL Normal 0.2 - 1. 0 [facility] Comment on above: Performed By: #### U AMIC ####[facility] Yahejxoxbt[address] [place], [place] [address]Dr. Airam Tripathi WBC 5-10 Abnormal NONE SEEN [facility] Comment on above: Performed By: #### U AMIC ####[facility] H[address]vbdhxgke[address] [place], [place] [address]Dr. Airam Tripathi BNPon 06-13-2022 Natriuretic peptide B (Bld) [Mass/Vol] 1496.0 pg/mL Critically high <=900.0 [facility] Comment on above: Performed By: #### T 4, BNP, MG, TSH, CMADM, CRP, CMP ####[facility] [address]uz[address]zigm[address] [place] [id number]. Airam Tripathi CARDIAC CONSUELO 3-6on 2 CK [Catalytic activity/Vol] 125 U/L Normal 26-192 [facility] Comment on above: Performed By: #### C MREP ####[facility] Rkrnqcnwhy7[address] [place], [place] [address]Nr. Airam Tripathi CK.MB [Mass/Vol] ng/mL Normal <=3.60 [facility] Comment on above: Performed By: #### C MREP ####[facility] Dbfxflynvy7512 [place] [id number]. Airam Tripathi HSTROP 5.8 pg/mL Normal 4.0-51.3 [facility] Comment on above: Result Comment: CUT- OFF POINTS HAVE BEEN ESTABLISHED BASED ON THE FOURTH UNIVERSAL DEFINITIONS OF MYOCARDIALINFARCTION. THE UPPER REFERENCE LIMIT (URL) OF TROPONIN, DEFINED THE 99TH PERCENTILE OFcTnI DISTRIBUTION IN A REFERENCE POPULATION, HAS BEEN CONFIRMED THE DECISION THRESHOLDFOR DC DIAGNOSIS. Performed By: #### C MREP ####[facility] W[address]psqbbig74[address] [place] [id number]. Airam Tripathi CARDIAC CONSUELO ADMITon 022 CK [Catalytic activity/Vol] 121 U/L Normal 26-192 [facility] Comment on above: Performed By: #### T 4, BNP, MG, TSH, CMADM, CRP, CMP ####[facility] Qasisllbyr33[address] [place] [phone]. Airam Tripathi CK.MB [Mass/Vol] 3.06 ng/mL Normal <=3.60 [facility] Comment on above: Performed By: #### T 4, BNP, MG, TSH, CMADM, CRP, CMP ####[facility] Pvbysdnvdm34[address] [place] [address]Dr. Airam Tripathi HSTROP 6.9 pg/mL Normal 4.0-51.3 [facility] Comment on above: Result Comment: CUT- OFF POINTS HAVE BEEN ESTABLISHED BASED ON THE FOURTH UNIVERSAL DEFINITIONS OF MYOCARDIALINFARCTION. THE UPPER REFERENCE LIMIT (URL) OF TROPONIN, DEFINED THE 99TH PERCENTILE OFcTnI DISTRIBUTION IN A REFERENCE POPULATION, HAS BEEN CONFIRMED THE DECISION THRESHOLDFOR DC DIAGNOSIS. Performed By: #### T 4, BNP, MG, TSH, CMADM, CRP, CMP ####[facility] Hwjxptxvmy75[address] [place] [address]Dr. Airam Deuce KATHY 124 ng/mL Critically high 9-82 [facility] Comment on above: Performed By: #### T 4, BNP, MG, TSH, CMADM, CRP, CMP ####[facility] Eim[address]wexms[address] [place] [address]Dr. Selenaneil Tripathi CBC AUTO DIFFon 06-13-2022 BASO # 0.0 103/ul Normal 0.0-0.1 [facility] Comment on above: Performed By: #### C BC ####[facility] Vmfcctekcw57[address] [place] [address]Dr. Airam Tripathi Basophils/100 WBC (Bld) 0.2 % Normal 0.2-2.0 [facility] Comment on above: Performed By: #### C BC ####[facility] Qlyjdbonpz[address] [place], [place] [address]Dr. Airam Tripathi EO # 0.2 103/ul Normal 0.0-0.7 [facility] Comment on above: Performed By: #### C BC ####[facility] Svisyygvxg94[address] [place] [address]Dr. Airam Tripathi Eosinophils/100 WBC (Bld) 1.5 % Normal 0.9-7.0 [facility] Comment on above: Performed By: #### C BC ####[facility] Bxdghbuadn01[address] [place] [address]Dr. Airam Tripathi Erythrocyte distribution width (RBC) [Ratio] 12.7 % Normal 11.0-15.0 [facility] Comment on above: Performed By: #### C BC ####[facility] Zfknpseifg[address] [place], [place] [address]Dr. Airam Tripathi Hematocrit (Bld) [Volume fraction] 30.0 % Critically low 36.0-48.0 [facility] Comment on above: Performed By: #### C BC ####[facility] Ertueplwox6[address] [place] [phone]. Airam Tripathi Hemoglobin (Bld) [Mass/Vol] 9.6 g/dL Critically low 12.0-16.0 [facility] Comment on above: Performed By: #### C BC ####[facility] G[address]ukzqgdg9[address] [place] [address]Dr. Airam Tripathi IG # 0.11 10e3/ul Critically high 0.00-0.03 [facility] Comment on above: Performed By: #### C BC ####[facility] Tprtqaxlsd9[address] [place] [address]Dr. Airam Tripathi IG % 1.1 % Critically high 0.0-0.5 [facility] Comment on above: Performed By: #### C BC ####[facility] Kzxnlmhpbw6974 [place] [address]Dr. Airam Tripathi LYMPH # 1.5 103/ul Normal 1.2-3.8 [facility] Comment on above: Performed By: #### C BC ####[facility] [address]qnldtmu[address] [place], [place] [address]Dr. Airam Tripathi Lymphocytes/100 WBC (Bld) 14.9 % Critically low 20.5-60.0 [facility] Comment on above: Performed By: #### C BC ####[facility] Urqlffjien[address] [place] [address]Dr. Airam Tripathi MANUAL DIFF REQ NO Normal [facility] Comment on above: Performed By: #### C BC ####[facility] [address]kpcgqfs[address] [place], [place] [address]Dr. Airam Tripathi MCH (RBC) [Entitic mass] 30.0 pg Normal 26.7-34.0 [facility] Comment on above: Performed By: #### C BC ####[facility] Cbecepetkl[address] [place], [place] [address]Dr. Airam Tripathi MCHC (RBC) [Mass/Vol] 32.0 g/dL Normal 29.9-35.2 [facility] Comment on above: Performed By: #### C BC ####[facility] Zszwxayycc45[address] [place] [phone]. Airam Tripathi MCV (RBC) [Entitic vol] 93.8 fL Normal 81.0-99.0 [facility] Comment on above: Performed By: #### C BC ####[facility] Izntwikimf5026 [place] [phone]. Airam Tripathi MONO # 0.8 103/ul Normal 0.3-0.8 [facility] Comment on above: Performed By: #### C BC ####[facility] Hmirbkhapt7081 [place] [phone]. Airam Tripathi Monocytes/100 WBC (Bld) 7.3 % Normal 1.7-12.0 [facility] Comment on above: Performed By: #### C BC ####[facility] [address] [place], [place] [address]Dr. Airam Tripathi NEUT # 7.8 103/ul Critically high 1.4-6.5 [facility] Comment on above: Performed By: #### C BC ####[facility] Pvmgmzcoby[address] [place], [place] [address]Dr. Airam Tripathi Neutrophils/100 WBC (Bld) 75.0 % Normal 43.0-75.0 [facility] Comment on above: Performed By: #### C BC ####[facility] Iginwigfct[address] [place], [place] [address]Dr. Airam Tripathi Platelet mean volume (Bld) [Entitic vol] 9.1 fL Critically low 9.5-13.5 [facility] Comment on above: Performed By: #### C BC ####[facility] Qhnvdlcnti[address] [place], [place] [address]Dr. Airam Tripathi PLT 341 103/ul Normal 150-450 [facility] Comment on above: Performed By: #### C BC ####[facility] Znvbqcvmem[address] [place], [place] [address]Dr. Airam Tripathi RBC 3.20 106/ul Critically low 4.20-5.40 [facility] Comment on above: Performed By: #### C BC ####[facility] L[address]jzup2596 [place], [place] [address]Er. Airam Tripathi WBC 10.4 103/ul Normal 4.0-11.0 [facility] Comment on above: Performed By: #### C BC ####[facility] Ygbsmurrmy027[address] [place], [place] [address]Ne. Airam Tripahti CRPon 06-13-2022 CRP [Mass/Vol] mg/L Normal <=1.0 [facility] Comment on above: Performed By: #### T 4, BNP, MG, TSH, CMADM, CRP, CMP ####[facility] V[address]elkhbex[address] [place], [place] [address]Kv. Airam Tripathi CT HEAD WO CONon 06-13-2022 CT HEAD WO CON Normal [facility] Covid-19 PCR (CVDTBH)on 05-26 SARS-CoV-2 (COVID-19) RNA MIKE+probe Ql (Unsp spec) Not detected Normal NOT DETECTED [facility] Comment on above: Result Comment: [...] for this test is supported by the Predatory Animal Exterminator of Health and Human Service's declaration that [...] be used). Performed By: #### C VDTBH ####[facility] Xdrfqritpw4043 [place], [place] [address]Lu. Airam Tripathi LACTATE/LACTIC ACIDon 2021 Lactate [Moles/Vol] 0.5 mmol/L Normal 0.4-1.9 [facility] Comment on above: Performed By: #### L ACT ####[facility] X[address]zrzsrn25[address] [place] [address]Dr. Airam Tripathi MAGNESIUMon 06-13-2022 Magnesium [Mass/Vol] 1.9 mg/dL Normal 1.8-2.4 [facility] Comment on above: Performed By: #### T 4, BNP, MG, TSH, CMADM, CRP, CMP ####[facility] Nlmtxzweyj9839 [place] [address]Dr. Airam Tripathi PROF 14(COMP METB)on 022 Albumin [Mass/Vol] 3.8 g/dL Normal 3.4-5.0 [facility] Comment on above: Performed By: #### T 4, BNP, MG, TSH, CMADM, CRP, CMP ####[facility] Uipsttffyz05[address] [place] [address]Dr. Airam Tripathi Albumin/Globulin [Mass ratio] 1.1 {ratio} Normal [facility] Comment on above: Performed By: #### T 4, BNP, MG, TSH, CMADM, CRP, CMP ####[facility] [address]ew[address]newaq[address] [place] [address]Dr. Airam Tripathi ALP [Catalytic activity/Vol] 161 U/L Critically high 46-116 [facility] Comment on above: Performed By: #### T 4, BNP, MG, TSH, CMADM, CRP, CMP ####[facility] [address]zbypxlrjv[address] [place] [address]Dr. Airam Tripathi ALT [Catalytic activity/Vol] 21 U/L Normal 14-59 [facility] Comment on above: Performed By: #### T 4, BNP, MG, TSH, CMADM, CRP, CMP ####[facility] Asrux[address]qbnw[address] [place] [address]Dr. Airam Tripathi Anion gap [Moles/Vol] 12.6 mmol/L Normal [facility] Comment on above: Performed By: #### T 4, BNP, MG, TSH, CMADM, CRP, CMP ####[facility] [facility] [address] [place] [address]Dr. Airam Tripathi AST [Catalytic activity/Vol] 30 U/L Normal 15-37 [facility] Comment on above: Performed By: #### T 4, BNP, MG, TSH, CMADM, CRP, CMP ####[facility] [address] [place] [address]Dr. Airam Tripathi Bilirubin [Mass/Vol] 0.3 mg/dL Normal 0.2-1.0 [facility] Comment on above: Performed By: #### T 4, BNP, MG, TSH, CMADM, CRP, CMP ####[facility] [address]ob[address] [place] [address]Dr. Airam Tripathi Calcium [Mass/Vol] 8.8 mg/dL Normal 8.5-10.1 [facility] Comment on above: Performed By: #### T 4, BNP, MG, TSH, CMADM, CRP, CMP ####[facility] [address] [place] [address]Dr. Airam Tripathi Chloride [Moles/Vol] 91 mmol/L Critically low 98-107 [facility] Comment on above: Performed By: #### T 4, BNP, MG, TSH, CMADM, CRP, CMP ####[facility] [address] [place] [address]Dr. Airam Tripathi CO2 [Moles/Vol] 26.9 mmol/L Normal 21.0-32.0 [facility] Comment on above: Performed By: #### T 4, BNP, MG, TSH, CMADM, CRP, CMP ####[facility] [address] [place] [address]Dr. Airam Tripathi Creatinine [Mass/Vol] 1.83 mg/dL Critically high 0.55-1.02 [facility] Comment on above: Performed By: #### T 4, BNP, MG, TSH, CMADM, CRP, CMP ####[facility] [address] [place] [address]Dr. Airam Tripathi EGFR-AF [place] 34 mL/min/1.73m2 Critically low >=60 [facility] Comment on above: Performed By: #### T 4, BNP, MG, TSH, CMADM, CRP, CMP ####[facility] [address] [place] [address]Dr. Airam Tripathi EGFR-NON AF [place] 28 mL/min/1.73m2 Critically low >=60 [facility] Comment on above: Performed By: #### T 4, BNP, MG, TSH, CMADM, CRP, CMP ####[facility] [address] [place] [address]Dr. Airam Tripathi Globulin (S) [Mass/Vol] 3.5 g/dL Normal [facility] Comment on above: Performed By: #### T 4, BNP, MG, TSH, CMADM, CRP, CMP ####[facility] V[address]cu[address] [place], [place] [address]Dr. Airam Tripathi Glucose [Mass/Vol] 96 mg/dL Normal 74-106 [facility] Comment on above: Performed By: #### T 4, BNP, MG, TSH, CMADM, CRP, CMP ####[facility] Lxiwssdqsy[address] [place], [place] [address]Dr. Airam Tripathi Potassium [Moles/Vol] 4.5 mmol/L Normal 3.5-5.1 [facility] Comment on above: Performed By: #### T 4, BNP, MG, TSH, CMADM, CRP, CMP ####[facility] [address] [place] [address]Dr. Airam Tripathi Protein [Mass/Vol] 7.3 g/dL Normal 6.4-8.2 [facility] Comment on above: Performed By: #### T 4, BNP, MG, TSH, CMADM, CRP, CMP ####[facility] [address]sw[address] [place] [address]Dr. Airam Tripathi Sodium [Moles/Vol] 126 mmol/L Critically low 136-145 [facility] Comment on above: Performed By: #### T 4, BNP, MG, TSH, CMADM, CRP, CMP ####[facility] Mpvnmoppat90[address] [place], [place] [address]Dr. Airam Tripathi Urea nitrogen [Mass/Vol] 34.0 mg/dL Critically high 7.0-18.0 [facility] Comment on above: Performed By: #### T 4, BNP, MG, TSH, CMADM, CRP, CMP ####[facility] Bttwdnwmpu05[address] [place], [place] [address]Dr. Airam Tripathi Urea nitrogen/Creatinine [Mass ratio] 18.6 mg/mg Normal [facility] Comment on above: Performed By: #### T 4, BNP, MG, TSH, CMADM, CRP, CMP ####[facility] U[address]nbljnjc6[address] [place], [place] [address]Dr. Airam Tripathi Albumin [Mass/Vol] 3.4 g/dL Normal 3.4-5.0 [facility] Comment on above: Performed By: #### C MP ####[facility] Tpboaknzea[address] [place], [place] [address]Dr. Airam Tripathi Albumin/Globulin [Mass ratio] 1.0 {ratio} Normal [facility] Comment on above: Performed By: #### C MP ####[facility] Qgodgbdfqu2047[address] [place], [place] [address]Dr. Airam Tripathi ALP [Catalytic activity/Vol] 151 U/L Critically high 46-116 [facility] Comment on above: Performed By: #### C MP ####[facility] Gaovjipluu8[address] [place], [place] [address]Dr. Airam Tripathi ALT [Catalytic activity/Vol] 20 U/L Normal 14-59 [facility] Comment on above: Performed By: #### C MP ####[facility] Qhfjdldkjw[address] [place], [place] [address]Dr. Airam Tripathi Anion gap [Moles/Vol] 11.7 mmol/L Normal [facility] Comment on above: Performed By: #### C MP ####[facility] Cybdvtducg[address] [place], [place] [address]Dr. Airam Tripathi AST [Catalytic activity/Vol] 28 U/L Normal 15-37 [facility] Comment on above: Performed By: #### C MP ####[facility] Pmbyonqllh7[address] [place], [place] [address]Dr. Airam Tripathi Bilirubin [Mass/Vol] 0.3 mg/dL Normal 0.2-1.0 [facility] Comment on above: Performed By: #### C MP ####[facility] Ijsnylcwau06[address] [place], [place] [address]Dr. Airam Tripathi Calcium [Mass/Vol] 8.5 mg/dL Normal 8.5-10.1 [facility] Comment on above: Performed By: #### C MP ####[facility] Qhvbdclthg[address] [place], [place] [address]Dr. Airam Tripathi Chloride [Moles/Vol] 91 mmol/L Critically low 98-107 [facility] Comment on above: Performed By: #### C MP ####[facility] Osipiebgad89[address] [place], [place] [address]Dr. Airam Tripathi CO2 [Moles/Vol] 28.3 mmol/L Normal 21.0-32.0 [facility] Comment on above: Performed By: #### C MP ####[facility] Rcwqtrdcbf27[address] [place], [place] [address]Dr. Airam Tripathi Creatinine [Mass/Vol] 1.68 mg/dL Critically high 0.55-1.02 [facility] Comment on above: Performed By: #### C MP ####[facility] Vtbtoipuxk[address] [place], [place] [address]Dr. Airam Tripathi EGFR-AF [place] 38 mL/min/1.73m2 Critically low >=60 [facility] Comment on above: Performed By: #### C MP ####[facility] Sylrmxivnj9315[address] [place], [place] [address]Dr. Airam Tripathi EGFR-NON AF [place] 31 mL/min/1.73m2 Critically low >=60 [facility] Comment on above: Performed By: #### C MP ####[facility] Sovtwriowp16[address] [place], [place] [address]Dr. Airam Tripathi Globulin (S) [Mass/Vol] 3.5 g/dL Normal [facility] Comment on above: Performed By: #### C MP ####[facility] Tcsdxiwmxj8[address] [place], [place] [address]Dr. Airam Tripathi Glucose [Mass/Vol] 74 mg/dL Normal 74-106 [facility] Comment on above: Performed By: #### C MP ####[facility] [address] [place] [address]Dr. Airam Tripathi Potassium [Moles/Vol] 4.0 mmol/L Normal 3.5-5.1 [facility] Comment on above: Performed By: #### C MP ####[facility] S[address]bbhqkasc[address] [place], [place] [address]Dr. Airam Tripathi Protein [Mass/Vol] 6.9 g/dL Normal 6.4-8.2 [facility] Comment on above: Performed By: #### C MP ####[facility] Bpllotcjsi59[address] [place], [place] [address]Dr. Airam Tripathi Sodium [Moles/Vol] 127 mmol/L Critically low 136-145 [facility] Comment on above: Performed By: #### C MP ####[facility] Psvxrpuvyw8[address] [place], [place] [address]Dr. Airam Tripathi Urea nitrogen [Mass/Vol] 29.0 mg/dL Critically high 7.0-18.0 [facility] Comment on above: Performed By: #### C MP ####[facility] Mtappasxlt[address] [place], [place] [address]Dr. Airam Tripathi Urea nitrogen/Creatinine [Mass ratio] 17.3 mg/mg Normal [facility] Comment on above: Performed By: #### C MP ####[facility] Ggnexvuwrx[address] [place], [place] [address]Dr. Airam Tripathi T4on 06-13-2022 T4 [Mass/Vol] 6.80 ug/dL Normal 4.80-13.90 [facility] Comment on above: Performed By: #### T 4, BNP, MG, TSH, CMADM, CRP, CMP ####[facility] Gshlypucpd[address] [place], [place] [address]Dr. Airam Tripathi TSHon 06-13-2022 TSH 0.101 uIU/mL Critically low 0.358-3.74 0 [facility] Comment on above: Performed By: #### T 4, BNP, MG, TSH, CMADM, CRP, CMP ####[facility] [address] [place] [id number]. Airam Tripathi OSMOLALITYon 06-08-2022 Osmolality [Osmolality] 272 mosm/kg Critically low 275-295 [facility] Comment on above: Performed By: #### O SMO ####[facility] Hmddutdrww[address] [place], [place] [address]Dr. Airam Deuce CBC AUTO DIFFon 06-06-2022 BASO # 0.0 103/ul Normal 0.0-0.1 [facility] Comment on above: Performed By: #### C BC ####[facility] Bjdrzmlzbf[address] [place], [place] [address]Dr. Airam Tripathi Basophils/100 WBC (Bld) 0.3 % Normal 0.2-2.0 [facility] Comment on above: Performed By: #### C BC ####[facility] Imcbexvplq[address] [place], [place] [address]Dr. Airam Tripathi EO # 0.2 103/ul Normal 0.0-0.7 [facility] Comment on above: Performed By: #### C BC ####[facility] Ouecnpjbvc[address] [place], [place] [address]Dr. Airam Tripathi Eosinophils/100 WBC (Bld) 2.5 % Normal 0.9-7.0 [facility] Comment on above: Performed By: #### C BC ####[facility] U[address]nyzxhva[address] [place], [place] [address]Dr. Airam Tripathi Erythrocyte distribution width (RBC) [Ratio] 12.9 % Normal 11.0-15.0 [facility] Comment on above: Performed By: #### C BC ####[facility] X[address]qhwkqzwo[address] [place], [place] [address]Dr. Airam Tripathi Hematocrit (Bld) [Volume fraction] 29.8 % Critically low 36.0-48.0 [facility] Comment on above: Performed By: #### C BC ####[facility] Yvrtgdtisw[address] [place], [place] [address]Dr. Airam Tripathi Hemoglobin (Bld) [Mass/Vol] 9.7 g/dL Critically low 12.0-16.0 [facility] Comment on above: Performed By: #### C BC ####[facility] [address] [place] [address]DrKianna Tripathi IG # 0.03 10e3/ul Normal 0.00-0.03 [facility] Comment on above: Performed By: #### C BC ####[facility] [address]kyr[address] [place] [address]DrKianna Tripathi IG % 0.3 % Normal 0.0-0.5 [facility] Comment on above: Performed By: #### C BC ####[facility] [address]qtq[address] [place] [address]DrKianna Tripathi LYMPH # 1.3 103/ul Normal 1.2-3.8 [facility] Comment on above: Performed By: #### C BC ####[facility] [address] [place] [address]DrKianna Tripathi Lymphocytes/100 WBC (Bld) 14.6 % Critically low 20.5-60.0 [facility] Comment on above: Performed By: #### C BC ####[facility] [address]dz[address] [place] [address]DrKianna Tripathi MANUAL DIFF REQ NO Normal [facility] Comment on above: Performed By: #### C BC ####[facility] [address]mujzry[address] [place] [address]DrKianna Tripathi MCH (RBC) [Entitic mass] 30.6 pg Normal 26.7-34.0 [facility] Comment on above: Performed By: #### C BC ####[facility] [address]kgbg34[address] [place] [address]DrKianna Tripathi MCHC (RBC) [Mass/Vol] 32.6 g/dL Normal 29.9-35.2 [facility] Comment on above: Performed By: #### C BC ####[facility] [address]fdf40[address] [place] [address]DrKianna Tripathi MCV (RBC) [Entitic vol] 94.0 fL Normal 81.0-99.0 [facility] Comment on above: Performed By: #### C BC ####[facility] [address]mhnaeo[address] [place] [address]Dr. Airam Tripathi MONO # 0.5 103/ul Normal 0.3-0.8 [facility] Comment on above: Performed By: #### C BC ####[facility] [address]qjwbrikf[address] [place] [address]Dr. Airma Tripathi Monocytes/100 WBC (Bld) 5.7 % Normal 1.7-12.0 [facility] Comment on above: Performed By: #### C BC ####[facility] [address]prf[address] [place] [address]Dr. Airam Tripathi NEUT # 6.9 103/ul Critically high 1.4-6.5 [facility] Comment on above: Performed By: #### C BC ####[facility] [address]opbesa[address] [place] [address]Dr. Airam Tripathi Neutrophils/100 WBC (Bld) 76.6 % Critically high 43.0-75.0 [facility] Comment on above: Performed By: #### C BC ####[facility] [address]wuej[address] [place] [address]Dr. Airam Tripathi Platelet mean volume (Bld) [Entitic vol] 9.2 fL Critically low 9.5-13.5 [facility] Comment on above: Performed By: #### C BC ####[facility] Nwpbujnmzi79[address] [place] [id number]. Airam Tripathi PLT 271 103/ul Normal 150-450 [facility] Comment on above: Performed By: #### C BC ####[facility] Fwny[address]rhle[address] [place] [id number]. Selenaneil Deuce RBC 3.17 106/ul Critically low 4.20-5.40 [facility] Comment on above: Performed By: #### C BC ####[facility] E[address]juzcqnn[address] [place] [id number]. Airam Deuce WBC 9.1 103/ul Normal 4.0-11.0 [facility] Comment on above: Performed By: #### C BC ####[facility] [address]wyw[address] [place] [address]Dr. Airam Tripathi PROF 14(COMP METB)on 022 Albumin [Mass/Vol] 3.4 g/dL Normal 3.4-5.0 [facility] Comment on above: Performed By: #### C MP ####[facility] Dtz[address]ylzh[address] [place] [address]Dr. Airam Tripathi Albumin/Globulin [Mass ratio] 1.0 {ratio} Normal [facility] Comment on above: Performed By: #### C MP ####[facility] Yuyypfddsg7654 [place] [address]Dr. Airam Tripathi ALP [Catalytic activity/Vol] 156 U/L Critically high 46-116 [facility] Comment on above: Performed By: #### C MP ####[facility] V[address]fxwhnybt[address] [place], [place] [address]Dr. Airam Tripathi ALT [Catalytic activity/Vol] 18 U/L Normal 14-59 [facility] Comment on above: Performed By: #### C MP ####[facility] Laoyvlrkzt8[address] [place], [place] [address]Dr. Airam Tripathi Anion gap [Moles/Vol] 10.8 mmol/L Normal [facility] Comment on above: Performed By: #### C MP ####[facility] Ltixsgmcnb14[address] [place], [place] [address]Dr. Airam Tripathi AST [Catalytic activity/Vol] 27 U/L Normal 15-37 [facility] Comment on above: Performed By: #### C MP ####[facility] Dnfipqvgos39[address] [place], [place] [address]Dr. Airam Tripathi Bilirubin [Mass/Vol] 0.2 mg/dL Normal 0.2-1.0 [facility] Comment on above: Performed By: #### C MP ####[facility] Iunqgsbggk7674[address] [place], [place] [address]Dr. Airam Tripathi Calcium [Mass/Vol] 8.1 mg/dL Critically low 8.5-10.1 [facility] Comment on above: Performed By: #### C MP ####[facility] Tpgeqvdouy1872 [place] [address]Dr. Airam Tripathi Chloride [Moles/Vol] 92 mmol/L Critically low 98-107 [facility] Comment on above: Performed By: #### C MP ####[facility] Eqtnlkitgu2253 [place] [address]Dr. Airam Tripathi CO2 [Moles/Vol] 27.4 mmol/L Normal 21.0-32.0 [facility] Comment on above: Performed By: #### C MP ####[facility] Pphthownpb[address] [place] [address]Dr. Airam Tripathi Creatinine [Mass/Vol] 1.57 mg/dL Critically high 0.55-1.02 [facility] Comment on above: Performed By: #### C MP ####[facility] Dhfaksbpzc40[address] [place], [place] [address]Dr. Airam Tripathi EGFR-AF [place] 41 mL/min/1.73m2 Critically low >=60 [facility] Comment on above: Performed By: #### C MP ####[facility] Ywiehclaaj[address] [place], [place] [address]Dr. Airam Tripathi EGFR-NON AF [place] 34 mL/min/1.73m2 Critically low >=60 [facility] Comment on above: Performed By: #### C MP ####[facility] Qfqddgjhwf1808 [place] [address]Dr. Airam Tripathi Globulin (S) [Mass/Vol] 3.4 g/dL Normal [facility] Comment on above: Performed By: #### C MP ####[facility] Uyvjonpoey[address] [place] [address]Dr. Airam Deuce Glucose [Mass/Vol] 82 mg/dL Normal 74-106 [facility] Comment on above: Performed By: #### C MP ####[facility] Awndfwukcr[address] [place] [address]Dr. Airam Deuce Potassium [Moles/Vol] 4.2 mmol/L Normal 3.5-5.1 [facility] Comment on above: Performed By: #### C MP ####[facility] Jelyrtxelo549[address] [place] [address]Dr. Airam Tripathi Protein [Mass/Vol] 6.8 g/dL Normal 6.4-8.2 [facility] Comment on above: Performed By: #### C MP ####[facility] Kjhfxtwgbz7[address] [place], [place] [address]Dr. Airam Deuce Sodium [Moles/Vol] 126 mmol/L Critically low 136-145 [facility] Comment on above: Performed By: #### C MP ####[facility] Coxjgrsiku[address] [place], [place] [address]Dr. Airam Deuce Urea nitrogen [Mass/Vol] 35.0 mg/dL Critically high 7.0-18.0 [facility] Comment on above: Performed By: #### C MP ####[facility] Nsnpekrvep19[address] [place], [place] [address]Dr. Airam Trpiathi Urea nitrogen/Creatinine [Mass ratio] 22.3 mg/mg Normal [facility] Comment on above: Performed By: #### C MP ####[facility] Abrirmxhhg9354[address] [place], [place] [address]Dr. Airam Deuce OSMOLALITYon 06-02-2022 Osmolality [Osmolality] 276 mosm/kg Normal 275-295 [facility] Comment on above: Performed By: #### O SMO ####[facility] Amxstkqjzj[address] [place], [place] [address]Dr. Airam Deuce CBC AUTO DIFFon 06-01-2022 BASO # 0.1 103/ul Normal 0.0-0.1 [facility] Comment on above: Performed By: #### C BC ####[facility] Ynyxqmcqnf96[address] [place], [place] [address]Dr. Airam Deuce Basophils/100 WBC (Bld) 0.7 % Normal 0.2-2.0 [facility] Comment on above: Performed By: #### C BC ####[facility] Ulxoomeulm[address] [place], [place] [address]Dr. Airam Tripathi EO # 0.3 103/ul Normal 0.0-0.7 [facility] Comment on above: Performed By: #### C BC ####[facility] R[address]bkru[address] [place] [address]Dr. Airam Tripathi Eosinophils/100 WBC (Bld) 3.3 % Normal 0.9-7.0 [facility] Comment on above: Performed By: #### C BC ####[facility] Daiiglsvtj4[address] [place], [place] [address]Dr. Airam Tripathi Erythrocyte distribution width (RBC) [Ratio] 13.2 % Normal 11.0-15.0 [facility] Comment on above: Performed By: #### C BC ####[facility] Pvlllqqwls25[address] [place], [place] [address]Dr. Airam Tripathi Hematocrit (Bld) [Volume fraction] 32.0 % Critically low 36.0-48.0 [facility] Comment on above: Performed By: #### C BC ####[facility] Qnhfzaonub369[address] [place], [place] [address]Dr. Airam Tripathi Hemoglobin (Bld) [Mass/Vol] 10.3 g/dL Critically low 12.0-16.0 [facility] Comment on above: Performed By: #### C BC ####[facility] Yynkdadhnz3[address] [place], [place] [address]Dr. Airam Tripathi IG # 0.05 10e3/ul Critically high 0.00-0.03 [facility] Comment on above: Performed By: #### C BC ####[facility] Edbjwnivqf[address] [place], [place] [address]Dr. Airam Tripathi IG % 0.7 % Critically high 0.0-0.5 [facility] Comment on above: Performed By: #### C BC ####[facility] Vqobbtqyah[address] [place], [place] [address]DrKianna Tripathi LYMPH # 1.7 103/ul Normal 1.2-3.8 [facility] Comment on above: Performed By: #### C BC ####[facility] Grfuuectvp30[address] [place], [place] [address]DrKianna Tripathi Lymphocytes/100 WBC (Bld) 22.6 % Normal 20.5-60.0 [facility] Comment on above: Performed By: #### C BC ####[facility] Bhusrfsiiv15[address] [place], [place] [address]DrKianna Tripathi MANUAL DIFF REQ NO Normal [facility] Comment on above: Performed By: #### C BC ####[facility] Wihvcrncon10[address] [place], [place] [address]Dr. Airam Tripathi MCH (RBC) [Entitic mass] 30.8 pg Normal 26.7-34.0 [facility] Comment on above: Performed By: #### C BC ####[facility] Iupuiljucm6920[address] [place], [place] [address]Dr. Airam Tripathi MCHC (RBC) [Mass/Vol] 32.2 g/dL Normal 29.9-35.2 [facility] Comment on above: Performed By: #### C BC ####[facility] Irrhildqmk[address] [place], [place] [address]DrKianna Tripathi MCV (RBC) [Entitic vol] 95.8 fL Normal 81.0-99.0 [facility] Comment on above: Performed By: #### C BC ####[facility] Srostlcqzq[address] [place], [place] [address]DrKianna Tripathi MONO # 0.6 103/ul Normal 0.3-0.8 [facility] Comment on above: Performed By: #### C BC ####[facility] Wwpdrztpic6[address] [place], [place] [address]DrKianna Tripathi Monocytes/100 WBC (Bld) 8.6 % Normal 1.7-12.0 [facility] Comment on above: Performed By: #### C BC ####[facility] Z[address]mltqleb[address] [place], [place] [address]DrKianan Tripathi NEUT # 4.8 103/ul Normal 1.4-6.5 [facility] Comment on above: Performed By: #### C BC ####[facility] Hieymbikzf5[address] [place], [place] [address]DrKianna Tripathi Neutrophils/100 WBC (Bld) 64.1 % Normal 43.0-75.0 [facility] Comment on above: Performed By: #### C BC ####[facility] [address]nwizvpt[address] [place] [address]DrKianna Tripathi Platelet mean volume (Bld) [Entitic vol] 10.0 fL Normal 9.5-13.5 [facility] Comment on above: Performed By: #### C BC ####[facility] Vnlhowhviv[address] [place], [place] [address]DrKianna Tripathi PLT 322 103/ul Normal 150-450 [facility] Comment on above: Performed By: #### C BC ####[facility] C[address]nlpfeusd7[address] [place], [place] [address]DrKianna Tripathi RBC 3.34 106/ul Critically low 4.20-5.40 [facility] Comment on above: Performed By: #### C BC ####[facility] Bozjdjoltg[address] [place], [place] [address]DrKianna Tripathi WBC 7.5 103/ul Normal 4.0-11.0 [facility] Comment on above: Performed By: #### C BC ####[facility] [address]ywqprfk[address] [place], [place] [address]DrKianna Tripathi PROF 14(COMP METB)on 022 Albumin [Mass/Vol] 3.5 g/dL Normal 3.4-5.0 [facility] Comment on above: Performed By: #### C MP ####[facility] Sydzozttgz[address] [place], [place] [address]DrKianna Tripathi Albumin/Globulin [Mass ratio] 1.1 {ratio} Normal [facility] Comment on above: Performed By: #### C MP ####[facility] Ivqpoaytck[address] [place], [place] [address]DrKianna Tripathi ALP [Catalytic activity/Vol] 167 U/L Critically high 46-116 [facility] Comment on above: Performed By: #### C MP ####[facility] [address]vzogdl[address] [place], [place] [address]DrKianna Tripathi ALT [Catalytic activity/Vol] 24 U/L Normal 14-59 [facility] Comment on above: Performed By: #### C MP ####[facility] [address]ae[address] [place] [address]Dr. Airam Deuce Anion gap [Moles/Vol] 14.1 mmol/L Normal [facility] Comment on above: Performed By: #### C MP ####[facility] Uzmihyfjwa[address] [place], [place] [address]Dr. Airam Deuce AST [Catalytic activity/Vol] 27 U/L Normal 15-37 [facility] Comment on above: Performed By: #### C MP ####[facility] Ctcabogjxw258[address] [place], [place] [address]Dr. Airam Tripathi Bilirubin [Mass/Vol] 0.3 mg/dL Normal 0.2-1.0 [facility] Comment on above: Performed By: #### C MP ####[facility] Ebjmgteoqh616[address] [place], [place] [address]Dr. Airam Tripathi Calcium [Mass/Vol] 8.0 mg/dL Critically low 8.5-10.1 [facility] Comment on above: Performed By: #### C MP ####[facility] Cdmelmcmrm3906[address] [place], [place] [address]Dr. Airam Tripathi Chloride [Moles/Vol] 96 mmol/L Critically low 98-107 [facility] Comment on above: Performed By: #### C MP ####[facility] Srmaijtfjz644[address] [place], [place] [address]Dr. Airam Tripathi CO2 [Moles/Vol] 24.6 mmol/L Normal 21.0-32.0 [facility] Comment on above: Performed By: #### C MP ####[facility] Xwapqdhbij9620[address] [place], [place] [address]Dr. Airam Tripathi Creatinine [Mass/Vol] 1.79 mg/dL Critically high 0.55-1.02 [facility] Comment on above: Performed By: #### C MP ####[facility] Wvgusoaxsa68[address] [place], [place] [address]Dr. Airam Tripathi EGFR-AF [place] 35 mL/min/1.73m2 Critically low >=60 [facility] Comment on above: Performed By: #### C MP ####[facility] [address] [place] [address]Dr. Airam Tripathi EGFR-NON AF [place] 29 mL/min/1.73m2 Critically low >=60 [facility] Comment on above: Performed By: #### C MP ####[facility] Bbplmhvzdv52[address] [place] [address]Dr. Airam Tripathi Globulin (S) [Mass/Vol] 3.3 g/dL Normal [facility] Comment on above: Performed By: #### C MP ####[facility] Ubxxcltwjj1077[address] [place], [place] [address]Dr. Airam Tripathi Glucose [Mass/Vol] 58 mg/dL Critically low 74-106 [facility] Comment on above: Performed By: #### C MP ####[facility] Prnkfitktq839[address] [place], [place] [address]Dr. Airam Tripathi Potassium [Moles/Vol] 4.7 mmol/L Normal 3.5-5.1 [facility] Comment on above: Performed By: #### C MP ####[facility] Cwhnwtljwr6046[address] [place], [place] [address]Dr. Airam Tripathi Protein [Mass/Vol] 6.8 g/dL Normal 6.4-8.2 [facility] Comment on above: Performed By: #### C MP ####[facility] Pkjrnqltty0977[address] [place], [place] [address]Dr. Airam Tripathi Sodium [Moles/Vol] 130 mmol/L Critically low 136-145 [facility] Comment on above: Performed By: #### C MP ####[facility] Plqqdrdvvi419023 [address] [place], [place] [address]Dr. Airam Tripathi Urea nitrogen [Mass/Vol] 30.0 mg/dL Critically high 7.0-18.0 [facility] Comment on above: Performed By: #### C MP ####[facility] Zejxzzkdut9[address] [place], [place] [address]Dr. Airam Tripathi Urea nitrogen/Creatinine [Mass ratio] 16.8 mg/mg Normal [facility] Comment on above: Performed By: #### C MP ####[facility] Zpspsiaygm7022[address] [place], [place] [address]Dr. Airam Tripathi OSMOLALITYon 05-28-2022 Osmolality [Osmolality] 275 mosm/kg Normal 275-295 [facility] Comment on above: Performed By: #### O SMO ####[facility] Haoalqndav36[address] [place], [place] [address]Dr. Airam Tripathi CBC AUTO DIFFon 05-26-2022 BASO # 0.0 103/ul Normal 0.0-0.1 [facility] Comment on above: Performed By: #### C BC ####[facility] Vtylhhkmcy318223 [address] [place], [place] [address]Dr. Airam Tripathi Basophils/100 WBC (Bld) 0.4 % Normal 0.2-2.0 [facility] Comment on above: Performed By: #### C BC ####[facility] Aublspildj7958[address] [place], [place] [address]DrKianna Tripathi EO # 0.3 103/ul Normal 0.0-0.7 [facility] Comment on above: Performed By: #### C BC ####[facility] Yxhjczqyex1875[address] [place], [place] [address]Dr. Airam Tripathi Eosinophils/100 WBC (Bld) 3.2 % Normal 0.9-7.0 [facility] Comment on above: Performed By: #### C BC ####[facility] Ntaouonqhj1413[address] [place], [place] [address]Dr. Airam Tripathi Erythrocyte distribution width (RBC) [Ratio] 13.0 % Normal 11.0-15.0 [facility] Comment on above: Performed By: #### C BC ####[facility] Wqwcqjcwih4666[address] [place], [place] [address]Dr. Airam Tripathi Hematocrit (Bld) [Volume fraction] 30.4 % Critically low 36.0-48.0 [facility] Comment on above: Performed By: #### C BC ####[facility] Xvjtqwcddm1732[address] [place], [place] [address]Dr. Airam Tripathi Hemoglobin (Bld) [Mass/Vol] 9.6 g/dL Critically low 12.0-16.0 [facility] Comment on above: Performed By: #### C BC ####[facility] Zcvvuvxjkj[address] [place] [address]Dr. Airam Tripathi IG # 0.06 10e3/ul Critically high 0.00-0.03 [facility] Comment on above: Performed By: #### C BC ####[facility] Erfzxkxnzp55[address] [place] [address]Dr. Airam Tripathi IG % 0.7 % Critically high 0.0-0.5 [facility] Comment on above: Performed By: #### C BC ####[facility] Qpanvfywrj7680[address] [place], [place] [address]DrKianna Tripathi LYMPH # 1.9 103/ul Normal 1.2-3.8 [facility] Comment on above: Performed By: #### C BC ####[facility] Iqfkopsnxh7297[address] [place], [place] [address]Dr. Airam Tripathi Lymphocytes/100 WBC (Bld) 20.6 % Normal 20.5-60.0 [facility] Comment on above: Performed By: #### C BC ####[facility] Jzlljhsdkz1235[address] [place], [place] [address]Dr. Airam Tripathi MANUAL DIFF REQ NO Normal [facility] Comment on above: Performed By: #### C BC ####[facility] Iicwcuwdar8567[address] [place], [place] [address]DrKianna Tripathi MCH (RBC) [Entitic mass] 30.1 pg Normal 26.7-34.0 [facility] Comment on above: Performed By: #### C BC ####[facility] Apkqxsrwpu954[address] [place], [place] [address]DrKianna Tripathi MCHC (RBC) [Mass/Vol] 31.6 g/dL Normal 29.9-35.2 [facility] Comment on above: Performed By: #### C BC ####[facility] Gulpdomtii514[address] [place], [place] [address]Dr. Airam Tripathi MCV (RBC) [Entitic vol] 95.3 fL Normal 81.0-99.0 [facility] Comment on above: Performed By: #### C BC ####[facility] Dvbddmdmwm761[address] [place], [place] [address]DrKianna Tripathi MONO # 0.6 103/ul Normal 0.3-0.8 [facility] Comment on above: Performed By: #### C BC ####[facility] Oxbfbsmndr519[address] [place], [place] [address]Dr. Airam Tripathi Monocytes/100 WBC (Bld) 6.9 % Normal 1.7-12.0 [facility] Comment on above: Performed By: #### C BC ####[facility] Oyhidcqmvr0387[address] [place], [place] [address]DrKianna Airam Tripathi NEUT # 6.1 103/ul Normal 1.4-6.5 [facility] Comment on above: Performed By: #### C BC ####[facility] Euydomgdvn7710[address] [place], [place] [address]Dr. Airam Tripathi Neutrophils/100 WBC (Bld) 68.2 % Normal 43.0-75.0 [facility] Comment on above: Performed By: #### C BC ####[facility] Jqlrxizbvq374[address] [place], [place] [address]DrKianna Airam Tripathi Platelet mean volume (Bld) [Entitic vol] 9.7 fL Normal 9.5-13.5 [facility] Comment on above: Performed By: #### C BC ####[facility] Mtshykdecu77[address] [place], [place] [address]Dr. Airam Deuce PLT 317 103/ul Normal 150-450 [facility] Comment on above: Performed By: #### C BC ####[facility] Ttzgpfffhw100[address] [place], [place] [address]DrKianna Airam Deuce RBC 3.19 106/ul Critically low 4.20-5.40 [facility] Comment on above: Performed By: #### C BC ####[facility] Hecgyxzkwu8106[address] [place], [place] [address]Dr. Airam Tripathi WBC 9.0 103/ul Normal 4.0-11.0 [facility] Comment on above: Performed By: #### C BC ####[facility] Hlbjuqwxce367[address] [place], [place] [address]Dr. Airam Tripathi PROF 14(COMP METB)on 022 Albumin [Mass/Vol] 3.4 g/dL Normal 3.4-5.0 [facility] Comment on above: Performed By: #### C MP ####[facility] Exzlnejbom6316[address] [place], [place] [address]Dr. Airam Tripathi Albumin/Globulin [Mass ratio] 1.0 {ratio} Normal [facility] Comment on above: Performed By: #### C MP ####[facility] Tjsfxxklbk8995[address] [place], [place] [address]Dr. Airam Tripathi ALP [Catalytic activity/Vol] 153 U/L Critically high 46-116 [facility] Comment on above: Performed By: #### C MP ####[facility] Wpzaqllvrp353[address] [place], [place] [address]Dr. Airam Tripathi ALT [Catalytic activity/Vol] 21 U/L Normal 14-59 [facility] Comment on above: Performed By: #### C MP ####[facility] Wythqdyjrb6375[address] [place], [place] [address]Dr. Airam Tripathi Anion gap [Moles/Vol] 13.6 mmol/L Normal [facility] Comment on above: Performed By: #### C MP ####[facility] Oojibseilz7008[address] [place], [place] [address]Dr. Airam Tripathi AST [Catalytic activity/Vol] 23 U/L Normal 15-37 [facility] Comment on above: Performed By: #### C MP ####[facility] Dnymkmnlfx4206[address] [place], [place] [address]Dr. Airam Tripathi Bilirubin [Mass/Vol] 0.2 mg/dL Normal 0.2-1.0 [facility] Comment on above: Performed By: #### C MP ####[facility] Rqfcoxslic0586[address] [place], [place] [address]Dr. Airam Tripathi Calcium [Mass/Vol] 8.4 mg/dL Critically low 8.5-10.1 [facility] Comment on above: Performed By: #### C MP ####[facility] Jetmaibnuf9569[address] [place], [place] [address]Dr. Airam Tripathi Chloride [Moles/Vol] 97 mmol/L Critically low 98-107 [facility] Comment on above: Performed By: #### C MP ####[facility] Wywfnmtief33[address] [place], [place] [address]Dr. Airam Tripathi CO2 [Moles/Vol] 25.2 mmol/L Normal 21.0-32.0 [facility] Comment on above: Performed By: #### C MP ####[facility] Zzjyzbwght738[address] [place], [place] [address]Dr. Airam Tripathi Creatinine [Mass/Vol] 1.58 mg/dL Critically high 0.55-1.02 [facility] Comment on above: Performed By: #### C MP ####[facility] Wayfpwvihi8256[address] [place], [place] [address]Dr. Airam Tripathi EGFR-AF [place] 40 mL/min/1.73m2 Critically low >=60 [facility] Comment on above: Performed By: #### C MP ####[facility] Unuowdhanp174[address] [place], [place] [address]Dr. Airam Tripathi EGFR-NON AF [place] 33 mL/min/1.73m2 Critically low >=60 [facility] Comment on above: Performed By: #### C MP ####[facility] Zzqbjyjmqw1388[address] [place], [place] [address]Dr. Airam Tripathi Globulin (S) [Mass/Vol] 3.4 g/dL Normal [facility] Comment on above: Performed By: #### C MP ####[facility] Qcfcsxpniy492[address] [place], [place] [address]Dr. Airam Tripathi Glucose [Mass/Vol] 74 mg/dL Normal 74-106 [facility] Comment on above: Performed By: #### C MP ####[facility] Reiflvmsou5586[address] [place], [place] [address]Dr. Airam Tripathi Potassium [Moles/Vol] 4.8 mmol/L Normal 3.5-5.1 [facility] Comment on above: Performed By: #### C MP ####[facility] Mtqrntteib245[address] [place], [place] [address]Dr. Airam Deuce Protein [Mass/Vol] 6.8 g/dL Normal 6.4-8.2 [facility] Comment on above: Performed By: #### C MP ####[facility] Wajqrratzx3924[address] [place], [place] [address]Dr. Airam Deuce Sodium [Moles/Vol] 131 mmol/L Critically low 136-145 [facility] Comment on above: Performed By: #### C MP ####[facility] Unkhpqeqwz299[address] [place], [place] [address]Dr. Selenaneil Deuce Urea nitrogen [Mass/Vol] 31.0 mg/dL Critically high 7.0-18.0 [facility] Comment on above: Performed By: #### C MP ####[facility] Ycgmgheeqs3149[address] [place], [place] [address]Dr. Airam Tripathi Urea nitrogen/Creatinine [Mass ratio] 19.6 mg/mg Normal [facility] Comment on above: Performed By: #### C MP ####[facility] Qkbdxvovxw196[address] [place], [place] [address]DrKianna Airam Deuce OSMOLALITYon 05-19-2022 Osmolality [Osmolality] 281 mosm/kg Normal 275-295 [facility] Comment on above: Performed By: #### O SMO ####[facility] Mlsftjsxdv9[address] [place], [place] [address]DrKianna Airam Deuce CBC AUTO DIFFon 05-17-2022 BASO # 0.1 103/ul Normal 0.0-0.1 [facility] Comment on above: Performed By: #### C BC ####[facility] Dfxnqdhxjz775[address] [place], [place] [address]Dr. Airam Deuce Basophils/100 WBC (Bld) 0.6 % Normal 0.2-2.0 [facility] Comment on above: Performed By: #### C BC ####[facility] Agljtzbfin0913[address] [place], [place] [address]Dr. Airam Tripathi EO # 0.2 103/ul Normal 0.0-0.7 [facility] Comment on above: Performed By: #### C BC ####[facility] [address]ueip[address] [place] [address]Dr. Airam Tripathi Eosinophils/100 WBC (Bld) 1.9 % Normal 0.9-7.0 [facility] Comment on above: Performed By: #### C BC ####[facility] [address]ssmcupthq[address] [place] [address]Dr. Airam Tripathi Erythrocyte distribution width (RBC) [Ratio] 12.9 % Normal 11.0-15.0 [facility] Comment on above: Performed By: #### C BC ####[facility] Lwknyotbgx4[address] [place], [place] [address]Dr. Airam Tripathi Hematocrit (Bld) [Volume fraction] 32.1 % Critically low 36.0-48.0 [facility] Comment on above: Performed By: #### C BC ####[facility] Fspadesnln2657[address] [place], [place] [address]Dr. Airam Tripathi Hemoglobin (Bld) [Mass/Vol] 9.9 g/dL Critically low 12.0-16.0 [facility] Comment on above: Performed By: #### C BC ####[facility] Dusgzdlygm2117[address] [place], [place] [address]Dr. Airam Tripathi IG # 0.05 10e3/ul Critically high 0.00-0.03 [facility] Comment on above: Performed By: #### C BC ####[facility] Rpogebvftd009[address] [place], [place] [address]Dr. Airam Tripathi IG % 0.6 % Critically high 0.0-0.5 [facility] Comment on above: Performed By: #### C BC ####[facility] Fscafxcyio606[address] [place], [place] [address]Dr. Airam Tripathi LYMPH # 1.3 103/ul Normal 1.2-3.8 [facility] Comment on above: Performed By: #### C BC ####[facility] [address]ve[address] [place] [address]Dr. Airam Deuce Lymphocytes/100 WBC (Bld) 15.2 % Critically low 20.5-60.0 [facility] Comment on above: Performed By: #### C BC ####[facility] [address]ry[address] [place] [address]Dr. Selenaneil Tripathi MANUAL DIFF REQ NO Normal [facility] Comment on above: Performed By: #### C BC ####[facility] Wsibaulkml3638 [place] [address]Dr. Airam Deuce MCH (RBC) [Entitic mass] 30.0 pg Normal 26.7-34.0 [facility] Comment on above: Performed By: #### C BC ####[facility] Ufxvvbhvbs9178[address] [place], [place] [address]Dr. Selenaneil Tripathi MCHC (RBC) [Mass/Vol] 30.8 g/dL Normal 29.9-35.2 [facility] Comment on above: Performed By: #### C BC ####[facility] Lscmoyjwdf724[address] [place], [place] [address]Dr. Selenaneil Tripathi MCV (RBC) [Entitic vol] 97.3 fL Normal 81.0-99.0 [facility] Comment on above: Performed By: #### C BC ####[facility] Pofpdxczwc2365[address] [place], [place] [address]Dr. Airam Tripathi MONO # 0.5 103/ul Normal 0.3-0.8 [facility] Comment on above: Performed By: #### C BC ####[facility] Nrrqdoljdj6[address] [place], [place] [address]Dr. Airam Tripathi Monocytes/100 WBC (Bld) 5.4 % Normal 1.7-12.0 [facility] Comment on above: Performed By: #### C BC ####[facility] Dlkrifvolr5414[address] [place], [place] [address]Dr. Airam Tripathi NEUT # 6.5 103/ul Normal 1.4-6.5 [facility] Comment on above: Performed By: #### C BC ####[facility] Qfzmkamnbi[address] [place], [place] [address]Dr. Airam Tripathi Neutrophils/100 WBC (Bld) 76.3 % Critically high 43.0-75.0 [facility] Comment on above: Performed By: #### C BC ####[facility] Niywcmpocl[address] [place] [address]Dr. Airam Tripathi Platelet mean volume (Bld) [Entitic vol] 10.1 fL Normal 9.5-13.5 [facility] Comment on above: Performed By: #### C BC ####[facility] [address]um[address]pk[address] [place] [address]Dr. Airam Tripathi PLT 284 103/ul Normal 150-450 [facility] Comment on above: Performed By: #### C BC ####[facility] Zuazsowwkz6[address] [place], [place] [address]Dr. Airam Tripathi RBC 3.30 106/ul Critically low 4.20-5.40 [facility] Comment on above: Performed By: #### C BC ####[facility] Uegkmrvzpm3307[address] [place], [place] [address]Dr. Airam Tripathi WBC 8.5 103/ul Normal 4.0-11.0 [facility] Comment on above: Performed By: #### C BC ####[facility] Bqjkclvxkl4764[address] [place], [place] [address]Dr. Airam Tripathi PROF 14(COMP METB)on 022 Albumin [Mass/Vol] 3.1 g/dL Critically low 3.4-5.0 [facility] Comment on above: Performed By: #### C MP ####[facility] [address]fqdmkoo[address] [place] [address]Dr. Airam Tripathi Albumin/Globulin [Mass ratio] 0.9 {ratio} Normal [facility] Comment on above: Performed By: #### C MP ####[facility] Stvwpmweox7377[address] [place], [place] [address]Dr. Airam Tripathi ALP [Catalytic activity/Vol] 162 U/L Critically high 46-116 [facility] Comment on above: Performed By: #### C MP ####[facility] Xawcktabls[address] [place] [address]Dr. Airam Tripathi ALT [Catalytic activity/Vol] 22 U/L Normal 14-59 [facility] Comment on above: Performed By: #### C MP ####[facility] Irvhpgxxgf088[address] [place], [place] [address]Dr. Airam Tripathi Anion gap [Moles/Vol] 9.4 mmol/L Normal [facility] Comment on above: Performed By: #### C MP ####[facility] Rffzttcvbe9[address] [place], [place] [address]Dr. Airam Tripathi AST [Catalytic activity/Vol] 26 U/L Normal 15-37 [facility] Comment on above: Performed By: #### C MP ####[facility] Nuumyavovj5[address] [place], [place] [address]Dr. Airam Tripathi Bilirubin [Mass/Vol] 0.2 mg/dL Normal 0.2-1.0 [facility] Comment on above: Performed By: #### C MP ####[facility] Fdptghofcn[address] [place], [place] [address]Dr. Airam Tripathi Calcium [Mass/Vol] 8.2 mg/dL Critically low 8.5-10.1 [facility] Comment on above: Performed By: #### C MP ####[facility] Gdxwodhsfd3[address] [place], [place] [address]Dr. Airam Tripathi Chloride [Moles/Vol] 103 mmol/L Normal 98-107 [facility] Comment on above: Performed By: #### C MP ####[facility] Zilxsmmywu7524[address] [place], [place] [address]Dr. Airam Tripathi CO2 [Moles/Vol] 24.8 mmol/L Normal 21.0-32.0 [facility] Comment on above: Performed By: #### C MP ####[facility] Qhjfxyysrt85[address] [place], [place] [address]Dr. Airam Tripathi Creatinine [Mass/Vol] 1.19 mg/dL Critically high 0.55-1.02 [facility] Comment on above: Performed By: #### C MP ####[facility] Aedtahyfzu177[address] [place], [place] [address]Dr. Airam Deuce EGFR-AF [place] 56 mL/min/1.73m2 Critically low >=60 [facility] Comment on above: Performed By: #### C MP ####[facility] Lyxxjlbruy[address] [place] [address]Dr. Airam Tripathi EGFR-NON AF [place] 46 mL/min/1.73m2 Critically low >=60 [facility] Comment on above: Performed By: #### C MP ####[facility] Rqrzxdtoyd[address] [place] [address]Dr. Airam Deuce Globulin (S) [Mass/Vol] 3.6 g/dL Normal [facility] Comment on above: Performed By: #### C MP ####[facility] Eejkndsfmk[address] [place] [address]Dr. Selenaneil Deuce Glucose [Mass/Vol] 75 mg/dL Normal 74-106 [facility] Comment on above: Performed By: #### C MP ####[facility] Qdodifavkb5647 [place] [address]Dr. Airam Deuce Potassium [Moles/Vol] 5.2 mmol/L Critically high 3.5-5.1 [facility] Comment on above: Performed By: #### C MP ####[facility] Iflztavctk1594 [place] [address]Dr. Airam Deuce Protein [Mass/Vol] 6.7 g/dL Normal 6.4-8.2 [facility] Comment on above: Performed By: #### C MP ####[facility] Ptzhpcvgtg1098 [place] [address]Dr. Airam Deuce Sodium [Moles/Vol] 132 mmol/L Critically low 136-145 [facility] Comment on above: Performed By: #### C MP ####[facility] Hxhldjddhi3287 [place] [address]Dr. Airam Deuce Urea nitrogen [Mass/Vol] 28.0 mg/dL Critically high 7.0-18.0 [facility] Comment on above: Performed By: #### C MP ####[facility] Vozvyzqttn6[address] [place] [address]Dr. Airam Tripathi Urea nitrogen/Creatinine [Mass ratio] 23.5 mg/mg Normal [facility] Comment on above: Performed By: #### C MP ####[facility] I[address]bvhgism64[address] [place] [address]Dr. Airam Tripathi OSMOLALITYon 05-16-2022 Osmolality [Osmolality] 281 mosm/kg Normal 275-295 [facility] Comment on above: Performed By: #### O SMO ####[facility] Aewswwctuc[address] [place] [address]Dr. Airam Tripathi CBC AUTO DIFFon 05-13-2022 BASO # 0.1 103/ul Normal 0.0-0.1 [facility] Comment on above: Performed By: #### C BC ####[facility] Qijoogfpoq4237 [place] [address]Dr. Airam Tripathi Basophils/100 WBC (Bld) 0.5 % Normal 0.2-2.0 [facility] Comment on above: Performed By: #### C BC ####[facility] Xblhemfoji9617 [place] [address]Dr. Airam Tripathi EO # 0.2 103/ul Normal 0.0-0.7 [facility] Comment on above: Performed By: #### C BC ####[facility] Vcyomgnvin8[address] [place] [address]Dr. Airam Tripathi Eosinophils/100 WBC (Bld) 2.1 % Normal 0.9-7.0 [facility] Comment on above: Performed By: #### C BC ####[facility] Vgokfalygc5[address] [place] [address]Dr. Airam Tripathi Erythrocyte distribution width (RBC) [Ratio] 12.9 % Normal 11.0-15.0 [facility] Comment on above: Performed By: #### C BC ####[facility] [address]huqvmvlm44[address] [place] [address]Dr. Airam Tripathi Hematocrit (Bld) [Volume fraction] 31.9 % Critically low 36.0-48.0 [facility] [facility] Comment on above: Performed By: #### C BC ####[facility] Lfuikvmkwd59[address] [place] [id number]. Airam Tripathi Hemoglobin (Bld) [Mass/Vol] 9.7 g/dL Critically low 12.0-16.0 [facility] Comment on above: Performed By: #### C BC ####[facility] Trkyxrevrs6796 [place] [id number]. Airam Tripathi IG # 0.06 10e3/ul Critically high 0.00-0.03 [facility] Comment on above: Performed By: #### C BC ####[facility] Rlxbpuwucl7648 [place] [phone]. Airam Tripathi IG % 0.7 % Critically high 0.0-0.5 [facility] Comment on above: Performed By: #### C BC ####[facility] Ziyezezbpx86[address] [place] [address]Dr. Airam Tripathi LYMPH # 1.9 103/ul Normal 1.2-3.8 [facility] Comment on above: Performed By: #### C BC ####[facility] Yroqohisqp0280 [place] [address]Dr. Airam Tripathi Lymphocytes/100 WBC (Bld) 21.1 % Normal 20.5-60.0 [facility] Comment on above: Performed By: #### C BC ####[facility] Nyryvqpzus7141 [place] [address]Dr. Airam Tripathi MANUAL DIFF REQ NO Normal [facility] Comment on above: Performed By: #### C BC ####[facility] Glqrxedppb701[address] [place], [place] [address]Dr. Airam Tripathi MCH (RBC) [Entitic mass] 29.7 pg Normal 26.7-34.0 [facility] Comment on above: Performed By: #### C BC ####[facility] Uxnrcdhnjn00[address] [place], [place] [address]Dr. Airam Tripathi MCHC (RBC) [Mass/Vol] 30.4 g/dL Normal 29.9-35.2 [facility] Comment on above: Performed By: #### C BC ####[facility] Jihyfafofe3885 [place] [phone]. Airam Tripathi MCV (RBC) [Entitic vol] 97.6 fL Normal 81.0-99.0 [facility] Comment on above: Performed By: #### C BC ####[facility] Egybhwijjs5262 [place] [phone]. Airam Tripathi MONO # 0.6 103/ul Normal 0.3-0.8 [facility] Comment on above: Performed By: #### C BC ####[facility] Ehqlhfvaam0650 [place] [phone]. Airam Tripathi Monocytes/100 WBC (Bld) 6.8 % Normal 1.7-12.0 [facility] Comment on above: Performed By: #### C BC ####[facility] Nmmrdoukdq8931 [place] [phone]. Airam Tripathi NEUT # 6.3 103/ul Normal 1.4-6.5 [facility] Comment on above: Performed By: #### C BC ####[facility] Licxjjnrgl[address] [place], [place] [id number]. Airam Tripathi Neutrophils/100 WBC (Bld) 68.8 % Normal 43.0-75.0 [facility] Comment on above: Performed By: #### C BC ####[facility] Hbvhilsarh6919 [place] [phone]. Airam Tripathi Platelet mean volume (Bld) [Entitic vol] 9.6 fL Normal 9.5-13.5 [facility] Comment on above: Performed By: #### C BC ####[facility] Cnzstmdwxu2594 [place] [phone]. Airam Tripathi PLT 295 103/ul Normal 150-450 [facility] Comment on above: Performed By: #### C BC ####[facility] Syvanvvoxa1179 [place] [phone]. Airam Deuce RBC 3.27 106/ul Critically low 4.20-5.40 [facility] Comment on above: Performed By: #### C BC ####[facility] Ybhanvexbz0216 [place] [address]Dr. Airam Tripathi WBC 9.1 103/ul Normal 4.0-11.0 [facility] Comment on above: Performed By: #### C BC ####[facility] Cyainxokem96[address] [place], [place] [address]Dr. Airam Tripathi PROF 14(COMP METB)on 05-13-2 022 Albumin [Mass/Vol] 3.3 g/dL Critically low 3.4-5.0 [facility] Comment on above: Performed By: #### C MP ####[facility] Vxbpfjebcd5[address] [place], [place] [address]Dr. Airam Tripathi Albumin/Globulin [Mass ratio] 1.0 {ratio} Normal [facility] Comment on above: Performed By: #### C MP ####[facility] Kacnzsmkze86[address] [place], [place] [address]Dr. Airam Tripathi ALP [Catalytic activity/Vol] 152 U/L Critically high 46-116 [facility] Comment on above: Performed By: #### C MP ####[facility] Ubkvmjnmqs648023 [address] [place], [place] [address]Dr. Airam Tripathi ALT [Catalytic activity/Vol] 23 U/L Normal 14-59 [facility] Comment on above: Performed By: #### C MP ####[facility] Misqttwcza183023 [address] [place], [place] [address]Dr. Airam Tripathi Anion gap [Moles/Vol] 12.0 mmol/L Normal [facility] Comment on above: Performed By: #### C MP ####[facility] Afkdbdvowk284223 [address] [place], [place] [address]Dr. Airam Tripathi AST [Catalytic activity/Vol] 25 U/L Normal 15-37 [facility] Comment on above: Performed By: #### C MP ####[facility] Xeczjogwhy020423 [address] [place], [place] [address]Dr. Airam Tripathi Bilirubin [Mass/Vol] 0.2 mg/dL Normal 0.2-1.0 [facility] Comment on above: Performed By: #### C MP ####[facility] Wscujozaki4308 [place] [address]Dr. Airam Tripathi Calcium [Mass/Vol] 8.2 mg/dL Critically low 8.5-10.1 [facility] Comment on above: Performed By: #### C MP ####[facility] Oexnvheysr3788 [place] [address]Dr. Airam Tripathi Chloride [Moles/Vol] 100 mmol/L Normal 98-107 [facility] Comment on above: Performed By: #### C MP ####[facility] Hjdtxsnpqq6772 [place] [address]Dr. Airam Tripathi CO2 [Moles/Vol] 24.8 mmol/L Normal 21.0-32.0 [facility] Comment on above: Performed By: #### C MP ####[facility] Upngjfehsy619[address] [place], [place] [address]Dr. Airam Tripathi Creatinine [Mass/Vol] 1.46 mg/dL Critically high 0.55-1.02 [facility] Comment on above: Performed By: #### C MP ####[facility] Rbddmfqbuf6794[address] [place], [place] [address]Dr. Airam Tripathi EGFR-AF [place] 44 mL/min/1.73m2 Critically low >=60 [facility] Comment on above: Performed By: #### C MP ####[facility] Ppcjxfljuw230[address] [place], [place] [address]Dr. Airam Tripathi EGFR-NON AF [place] 37 mL/min/1.73m2 Critically low >=60 [facility] Comment on above: Performed By: #### C MP ####[facility] Skxykamjpc483223 [address] [place], [place] [address]Dr. Airam Tripathi Globulin (S) [Mass/Vol] 3.3 g/dL Normal [facility] Comment on above: Performed By: #### C MP ####[facility] Abdtbirfip038[address] [place], [place] [address]Dr. Airam Tripathi Glucose [Mass/Vol] 86 mg/dL Normal 74-106 [facility] Comment on above: Performed By: #### C MP ####[facility] Uexsnyevru[address] [place], [place] [id number]. Airam Deuce Potassium [Moles/Vol] 4.8 mmol/L Normal 3.5-5.1 [facility] Comment on above: Performed By: #### C MP ####[facility] Folgefhsvg8147 [place] [address]Dr. Airam Deuce Protein [Mass/Vol] 6.6 g/dL Normal 6.4-8.2 [facility] Comment on above: Performed By: #### C MP ####[facility] Foiwdjhzno4189[address] [place], [place] [address]Dr. Airam Deuce Sodium [Moles/Vol] 132 mmol/L Critically low 136-145 [facility] Comment on above: Performed By: #### C MP ####[facility] Jbaotecqea423[address] [place], [place] [address]Dr. Selenaneil Tripathi Urea nitrogen [Mass/Vol] 34.0 mg/dL Critically high 7.0-18.0 [facility] Comment on above: Performed By: #### C MP ####[facility] Hytrkaerao384623 [address] [place], [place] [address]Dr. Airam Deuce Urea nitrogen/Creatinine [Mass ratio] 23.3 mg/mg Normal [facility] Comment on above: Performed By: #### C MP ####[facility] Wrqhbdlbem0436[address] [place], [place] [address]Dr. Airam Deuce OSMOLALITYon 05-06-2022 Osmolality [Osmolality] 284 mosm/kg Normal 275-295 [facility] Comment on above: Performed By: #### O SMO ####[facility] Ebafgbydmg251[address] [place], [place] [address]Dr. Airam Deuce XR LSPINE MIN 4 VIEWSon 11-0 XR LSPINE MIN 4 VIEWS Normal [facility] CBC AUTO DIFFon 05-03-2022 BASO # 0.1 103/ul Normal 0.0-0.1 [facility] Comment on above: Performed By: #### C BC ####[facility] Ubaziwebui3226[address] [place], [place] [address]Dr. Selenaneil Tripatih Basophils/100 WBC (Bld) 0.6 % Normal 0.2-2.0 [facility] Comment on above: Performed By: #### C BC ####[facility] Vamtlbufgl6694[address] [place], [place] [address]Dr. Airam Tripathi EO # 0.3 103/ul Normal 0.0-0.7 [facility] Comment on above: Performed By: #### C BC ####[facility] Ivxxiedigh159523 [address] [place], [place] [address]Dr. Airam Tripathi Eosinophils/100 WBC (Bld) 4.2 % Normal 0.9-7.0 [facility] Comment on above: Performed By: #### C BC ####[facility] Wqmxjvyaxk8867[address] [place], [place] [address]Dr. Airam Tripathi Erythrocyte distribution width (RBC) [Ratio] 13.4 % Normal 11.0-15.0 [facility] Comment on above: Performed By: #### C BC ####[facility] Ctsdkhydkz4088[address] [place], [place] [address]Dr. Airam Tripathi Hematocrit (Bld) [Volume fraction] 30.7 % Critically low 36.0-48.0 [facility] Comment on above: Performed By: #### C BC ####[facility] Etyiyqlyca693[address] [place], [place] [address]Dr. Airam Tripathi Hemoglobin (Bld) [Mass/Vol] 9.6 g/dL Critically low 12.0-16.0 [facility] Comment on above: Performed By: #### C BC ####[facility] Qqizbclfot7129[address] [place], [place] [address]Dr. Airam Tripathi IG # 0.05 10e3/ul Critically high 0.00-0.03 [facility] Comment on above: Performed By: #### C BC ####[facility] Btxwjhncnn3195[address] [place], [place] [address]Dr. Airam Tripathi IG % 0.6 % Critically high 0.0-0.5 [facility] Comment on above: Performed By: #### C BC ####[facility] Pvvzjxfbzc806[address] [place], [place] [address]DrKianna Tripathi LYMPH # 1.9 103/ul Normal 1.2-3.8 [facility] Comment on above: Performed By: #### C BC ####[facility] Lywzkdqjnj7670 [place] [address]DrKianna Tripathi Lymphocytes/100 WBC (Bld) 23.5 % Normal 20.5-60.0 [facility] Comment on above: Performed By: #### C BC ####[facility] Sofhavgimk7264 [place] [address]DrKianna Tripathi MANUAL DIFF REQ NO Normal [facility] Comment on above: Performed By: #### C BC ####[facility] Qxoyeuvusp9260 [place] [address]DrKianna Tripathi MCH (RBC) [Entitic mass] 30.8 pg Normal 26.7-34.0 [facility] Comment on above: Performed By: #### C BC ####[facility] Pohduwtfwp53[address] [place], [place] [address]DrKianna Tripathi MCHC (RBC) [Mass/Vol] 31.3 g/dL Normal 29.9-35.2 [facility] Comment on above: Performed By: #### C BC ####[facility] Dtcggvghrg4434[address] [place], [place] [address]DrKianna Tripathi MCV (RBC) [Entitic vol] 98.4 fL Normal 81.0-99.0 [facility] Comment on above: Performed By: #### C BC ####[facility] Pymstigkhk040[address] [place], [place] [address]DrKianna Tripathi MONO # 0.6 103/ul Normal 0.3-0.8 [facility] Comment on above: Performed By: #### C BC ####[facility] Klqmmaxgyg6596[address] [place], [place] [address]DrKianna Tripathi Monocytes/100 WBC (Bld) 7.4 % Normal 1.7-12.0 [facility] Comment on above: Performed By: #### C BC ####[facility] Auwtwbxykb4279[address] [place], [place] [address]DrKianna Tripathi NEUT # 5.0 103/ul Normal 1.4-6.5 [facility] Comment on above: Performed By: #### C BC ####[facility] Mkrtzouhrs3953 [place] [address]Dr. Airam Tripathi Neutrophils/100 WBC (Bld) 63.7 % Normal 43.0-75.0 [facility] Comment on above: Performed By: #### C BC ####[facility] Vmsyjashul7370 [place] [address]Dr. Airam Tripathi Platelet mean volume (Bld) [Entitic vol] 9.5 fL Normal 9.5-13.5 [facility] Comment on above: Performed By: #### C BC ####[facility] Cbhdvdrsha5346[address] [place], [place] [address]Dr. Airam Tripathi PLT 280 103/ul Normal 150-450 [facility] Comment on above: Performed By: #### C BC ####[facility] Syogxtgoto0448[address] [place], [place] [address]Dr. Airam Tripathi RBC 3.12 106/ul Critically low 4.20-5.40 [facility] Comment on above: Performed By: #### C BC ####[facility] Dbjwthrjex9970[address] [place], [place] [address]Dr. Airam Tripathi WBC 7.9 103/ul Normal 4.0-11.0 [facility] Comment on above: Performed By: #### C BC ####[facility] Jjunljaaql1306[address] [place], [place] [address]Dr. Airam Tripathi PROF 14(COMP METB)on 022 Albumin [Mass/Vol] 3.1 g/dL Critically low 3.4-5.0 [facility] Comment on above: Performed By: #### C MP ####[facility] Sbrhcsvoxt3635[address] [place], [place] [address]Dr. Airam Tripathi Albumin/Globulin [Mass ratio] 0.9 {ratio} Normal [facility] Comment on above: Performed By: #### C MP ####[facility] Ymjgumcsfn192[address] [place], [place] [address]Dr. Airam Tripathi ALP [Catalytic activity/Vol] 140 U/L Critically high 46-116 [facility] Comment on above: Performed By: #### C MP ####[facility] Ndzxclsuzh8487 [place] [address]Dr. Airam Tripathi ALT [Catalytic activity/Vol] 24 U/L Normal 14-59 [facility] Comment on above: Performed By: #### C MP ####[facility] Dcdmoredeh2675 [place] [id number]. Airam Tripathi Anion gap [Moles/Vol] 11.2 mmol/L Normal [facility] Comment on above: Performed By: #### C MP ####[facility] Ubeqrwpjfn0169 [place] [address]Dr. Airam Deuce AST [Catalytic activity/Vol] 26 U/L Normal 15-37 [facility] Comment on above: Performed By: #### C MP ####[facility] Ungofiqjyb779[address] [place], [place] [address]Dr. Airam Deuce Bilirubin [Mass/Vol] 0.2 mg/dL Normal 0.2-1.0 [facility] Comment on above: Performed By: #### C MP ####[facility] Neqpgqjgiw8047[address] [place], [place] [address]Dr. Airam Deuce Calcium [Mass/Vol] 8.3 mg/dL Critically low 8.5-10.1 [facility] Comment on above: Performed By: #### C MP ####[facility] Vdobxikcxb9130 [place] [address]Dr. Airam Deuce Chloride [Moles/Vol] 101 mmol/L Normal 98-107 [facility] Comment on above: Performed By: #### C MP ####[facility] Gcyxesvgiz32[address] [place], [place] [id number]. Airam Deuce CO2 [Moles/Vol] 25.5 mmol/L Normal 21.0-32.0 [facility] Comment on above: Performed By: #### C MP ####[facility] Xxqqsufhlp5[address] [place], [place] [address]Dr. Airam Deuce Creatinine [Mass/Vol] 1.43 mg/dL Critically high 0.55-1.02 [facility] Comment on above: Performed By: #### C MP ####[facility] Xrfsirefev1976 [place] [address]Dr. Airam Deuce EGFR-AF [place] 45 mL/min/1.73m2 Critically low >=60 [facility] Comment on above: Performed By: #### C MP ####[facility] Sehutrjzur2976 [place] [phone]. Airam Deuce EGFR-NON AF [place] 37 mL/min/1.73m2 Critically low >=60 [facility] Comment on above: Performed By: #### C MP ####[facility] Ccktphupay7552 [place] [address]Dr. Airam Tripathi Globulin (S) [Mass/Vol] 3.3 g/dL Normal [facility] Comment on above: Performed By: #### C MP ####[facility] Ltyexpcezc9159 [place] [address]Dr. Airam Tripathi Glucose [Mass/Vol] 74 mg/dL Normal 74-106 [facility] Comment on above: Performed By: #### C MP ####[facility] Madcuipewt1865 [place] [address]Dr. Airam Tripathi Potassium [Moles/Vol] 4.7 mmol/L Normal 3.5-5.1 [facility] Comment on above: Performed By: #### C MP ####[facility] Bqfrbradpm5714 [place] [address]Dr. Airam Tripathi Protein [Mass/Vol] 6.4 g/dL Normal 6.4-8.2 [facility] Comment on above: Performed By: #### C MP ####[facility] Cznwjdzffe1839 [place] [address]Dr. Airam Tripathi Sodium [Moles/Vol] 133 mmol/L Critically low 136-145 [facility] Comment on above: Performed By: #### C MP ####[facility] Dghxlbzxyj8223 [place] [phone]. Airam Tripathi Urea nitrogen [Mass/Vol] 38.0 mg/dL Critically high 7.0-18.0 [facility] Comment on above: Performed By: #### C MP ####[facility] Samdqiobzu40[address] [place], [place] [address]Dr. Airam Tripathi Urea nitrogen/Creatinine [Mass ratio] 26.6 mg/mg Normal [facility] Comment on above: Performed By: #### C MP ####[facility] Cqvmcmkeda16[address] [place], [place] [address]Dr. Airam Tripathi OSMOLALITYon 04-29-2022 Osmolality [Osmolality] 292 mosm/kg Normal 275-295 [facility] Comment on above: Performed By: #### O SMO ####[facility] Ccmbpbgdlo0629[address] [place], [place] [address]Dr. Airam Tripathi CBC AUTO DIFFon 04-28-2022 BASO # 0.0 103/ul Normal 0.0-0.1 [facility] Comment on above: Performed By: #### C BC ####[facility] Ekmasuvdun2965[address] [place], [place] [address]DrKianna Tripathi Basophils/100 WBC (Bld) 0.5 % Normal 0.2-2.0 [facility] Comment on above: Performed By: #### C BC ####[facility] Qhsexqaspc4380[address] [place], [place] [address]DrKianna Tripathi EO # 0.2 103/ul Normal 0.0-0.7 [facility] Comment on above: Performed By: #### C BC ####[facility] Mubyuvolvf3829[address] [place], [place] [address]Dr. Airam Tripathi Eosinophils/100 WBC (Bld) 3.4 % Normal 0.9-7.0 [facility] Comment on above: Performed By: #### C BC ####[facility] Ptxpfdxmaa711[address] [place], [place] [address]Dr. Airam Tripathi Erythrocyte distribution width (RBC) [Ratio] 13.4 % Normal 11.0-15.0 [facility] Comment on above: Performed By: #### C BC ####[facility] Uaznpgrmtb060[address] [place], [place] [address]Dr. Airam Tripathi Hematocrit (Bld) [Volume fraction] 31.6 % Critically low 36.0-48.0 [facility] Comment on above: Performed By: #### C BC ####[facility] Vnzgrxwsxa5241 [place] [address]DrKianna Airam Tripathi Hemoglobin (Bld) [Mass/Vol] 9.8 g/dL Critically low 12.0-16.0 [facility] Comment on above: Performed By: #### C BC ####[facility] Qudmxbpuwd3259[address] [place], [place] [address]DrKianna Airam Tripathi IG # 0.02 10e3/ul Normal 0.00-0.03 [facility] Comment on above: Performed By: #### C BC ####[facility] Vdgpkvdcrp8749[address] [place], [place] [address]DrKianna Airam Deuce IG % 0.3 % Normal 0.0-0.5 [facility] Comment on above: Performed By: #### C BC ####[facility] Iecgplmkbz2187[address] [place], [place] [address]DrKianna Airam Deuce LYMPH # 1.3 103/ul Normal 1.2-3.8 [facility] Comment on above: Performed By: #### C BC ####[facility] Qiooceminb9927[address] [place], [place] [address]DrKianna Airam Tripathi Lymphocytes/100 WBC (Bld) 21.7 % Normal 20.5-60.0 [facility] Comment on above: Performed By: #### C BC ####[facility] Uvtcatyjcg3127[address] [place], [place] [address]DrKianna Airam Deuce MANUAL DIFF REQ NO Normal [facility] Comment on above: Performed By: #### C BC ####[facility] Ptylivysmq785[address] [place], [place] [address]DrKianna Airam Deuce MCH (RBC) [Entitic mass] 30.7 pg Normal 26.7-34.0 [facility] Comment on above: Performed By: #### C BC ####[facility] Lgwcswjzco9120[address] [place], [place] [address]DrKianna Airam Deuce MCHC (RBC) [Mass/Vol] 31.0 g/dL Normal 29.9-35.2 [facility] Comment on above: Performed By: #### C BC ####[facility] Dphphquhqe9688 [place] [address]DrKianna Tripathi MCV (RBC) [Entitic vol] 99.1 fL Critically high 81.0-99.0 [facility] Comment on above: Performed By: #### C BC ####[facility] Cgcuywtdii9664[address] [place], [place] [address]DrKianna Tripathi MONO # 0.3 103/ul Normal 0.3-0.8 [facility] Comment on above: Performed By: #### C BC ####[facility] Omqygnvlnm5899[address] [place], [place] [address]DrKianna Tripathi Monocytes/100 WBC (Bld) 5.2 % Normal 1.7-12.0 [facility] Comment on above: Performed By: #### C BC ####[facility] Xwyfvwczkv266[address] [place], [place] [address]DrKianna Tripathi NEUT # 4.1 103/ul Normal 1.4-6.5 [facility] Comment on above: Performed By: #### C BC ####[facility] Qripvieddi4332[address] [place], [place] [address]DrKianna Tripathi Neutrophils/100 WBC (Bld) 68.9 % Normal 43.0-75.0 [facility] Comment on above: Performed By: #### C BC ####[facility] Makpjcrvsc0522[address] [place], [place] [address]DrKianna Tripathi Platelet mean volume (Bld) [Entitic vol] 9.8 fL Normal 9.5-13.5 [facility] Comment on above: Performed By: #### C BC ####[facility] Jlpridkhzv3904[address] [place], [place] [address]DrKianna Tripathi PLT 329 103/ul Normal 150-450 [facility] Comment on above: Performed By: #### C BC ####[facility] Kkvuwpehqq8017[address] [place], [place] [address]DrKianna Tripathi RBC 3.19 106/ul Critically low 4.20-5.40 [facility] Comment on above: Performed By: #### C BC ####[facility] Ispcbpjids2686 [place] [address]Dr. Airam Tripathi WBC 5.9 103/ul Normal 4.0-11.0 [facility] Comment on above: Performed By: #### C BC ####[facility] Vduqolwjrt0054[address] [place], [place] [address]DrKianna Tripathi PROF 14(COMP METB)on 022 Albumin [Mass/Vol] 2.9 g/dL Critically low 3.4-5.0 [facility] Comment on above: Performed By: #### C MP ####[facility] Brdpabcuxg1296[address] [place], [place] [address]Dr. Airam Tripathi Albumin/Globulin [Mass ratio] 0.9 {ratio} Normal [facility] Comment on above: Performed By: #### C MP ####[facility] Veublgwnew1613[address] [place], [place] [address]Dr. Airam Tripathi ALP [Catalytic activity/Vol] 127 U/L Critically high 46-116 [facility] Comment on above: Performed By: #### C MP ####[facility] Maevziofui7[address] [place], [place] [address]Dr. Airam Tripathi ALT [Catalytic activity/Vol] 22 U/L Normal 14-59 [facility] Comment on above: Performed By: #### C MP ####[facility] Pavqhasaql0599[address] [place], [place] [address]Dr. Airam Tripathi Anion gap [Moles/Vol] 6.7 mmol/L Normal [facility] Comment on above: Performed By: #### C MP ####[facility] Mhteoorexh95[address] [place], [place] [address]Dr. Airam Tripathi AST [Catalytic activity/Vol] 24 U/L Normal 15-37 [facility] Comment on above: Performed By: #### C MP ####[facility] Mdtiaihjta27[address] [place], [place] [address]Dr. Airam Tripathi Bilirubin [Mass/Vol] 0.2 mg/dL Normal 0.2-1.0 [facility] Comment on above: Performed By: #### C MP ####[facility] [address]zrkdjpvy[address] [place], [place] [address]Dr. Airam Tripathi Calcium [Mass/Vol] 8.2 mg/dL Critically low 8.5-10.1 [facility] Comment on above: Performed By: #### C MP ####[facility] Zvkevpdjfk19[address] [place], [place] [address]Dr. Airam Deuce Chloride [Moles/Vol] 105 mmol/L Normal 98-107 [facility] Comment on above: Performed By: #### C MP ####[facility] Lwheirzvcw079[address] [place], [place] [address]Dr. Airam Tripathi CO2 [Moles/Vol] 28.2 mmol/L Normal 21.0-32.0 [facility] Comment on above: Performed By: #### C MP ####[facility] Rutxwcttdn8475[address] [place], [place] [address]Dr. Airam Deuce Creatinine [Mass/Vol] 1.22 mg/dL Critically high 0.55-1.02 [facility] Comment on above: Performed By: #### C MP ####[facility] Jmngazfhez96[address] [place], [place] [address]Dr. Airam Deuce EGFR-AF [place] 54 mL/min/1.73m2 Critically low >=60 [facility] Comment on above: Performed By: #### C MP ####[facility] Fsdpuwlbtb717[address] [place], [place] [address]Dr. Airam Deuce EGFR-NON AF [place] 45 mL/min/1.73m2 Critically low >=60 [facility] Comment on above: Performed By: #### C MP ####[facility] Fniwndsvan[address] [place], [place] [address]Dr. Airam Tripathi Globulin (S) [Mass/Vol] 3.2 g/dL Normal [facility] Comment on above: Performed By: #### C MP ####[facility] Iqpvfcvmsu4230[address] [place], [place] [address]Dr. Airam Tripathi Glucose [Mass/Vol] 77 mg/dL Normal 74-106 [facility] Comment on above: Performed By: #### C MP ####[facility] [address] [place] [address]Dr. Airam Tripathi Potassium [Moles/Vol] 4.9 mmol/L Normal 3.5-5.1 [facility] Comment on above: Performed By: #### C MP ####[facility] Aoghwsjhfh9854[address] [place], [place] [address]Dr. Airam Tripathi Protein [Mass/Vol] 6.1 g/dL Critically low 6.4-8.2 [facility] Comment on above: Performed By: #### C MP ####[facility] Zinuzuwgpp1367[address] [place], [place] [address]Dr. Airam Tripathi Sodium [Moles/Vol] 135 mmol/L Critically low 136-145 [facility] Comment on above: Performed By: #### C MP ####[facility] Pqtqxztvcv5[address] [place], [place] [address]Dr. Airam Tripathi Urea nitrogen [Mass/Vol] 30.0 mg/dL Critically high 7.0-18.0 [facility] Comment on above: Performed By: #### C MP ####[facility] Mknxrjrdfo6[address] [place], [place] [address]Dr. Airam Tripathi Urea nitrogen/Creatinine [Mass ratio] 24.6 mg/mg Normal [facility] Comment on above: Performed By: #### C MP ####[facility] Pvqvvmkjgs562[address] [place], [place] [address]Dr. Airam Tripathi OSMOLALITYon 04-23-2022 Osmolality [Osmolality] 289 mosm/kg Normal 275-295 [facility] Comment on above: Performed By: #### O SMO ####[facility] Gosayuhrnh4576[address] [place], [place] [address]DrKianna Tripathi CBC AUTO DIFFon 04-20-2022 BASO # 0.0 103/ul Normal 0.0-0.1 [facility] Comment on above: Performed By: #### C BC ####[facility] Trpycebczr728[address] [place], [place] [address]Dr. Airam Tripathi Basophils/100 WBC (Bld) 0.4 % Normal 0.2-2.0 [facility] Comment on above: Performed By: #### C BC ####[facility] Lfyhhtjxhg7[address] [place], [place] [address]Dr. Airam Tripathi EO # 0.2 103/ul Normal 0.0-0.7 [facility] Comment on above: Performed By: #### C BC ####[facility] Jexkyjyvjl8736[address] [place], [place] [address]Dr. Airma Tripathi Eosinophils/100 WBC (Bld) 3.1 % Normal 0.9-7.0 [facility] Comment on above: Performed By: #### C BC ####[facility] Oiqlkcwzer579[address] [place], [place] [address]Dr. Airam Tripathi Erythrocyte distribution width (RBC) [Ratio] 13.8 % Normal 11.0-15.0 [facility] Comment on above: Performed By: #### C BC ####[facility] Ilruxfwxem942[address] [place], [place] [address]Dr. Airam Tripathi Hematocrit (Bld) [Volume fraction] 29.5 % Critically low 36.0-48.0 [facility] Comment on above: Performed By: #### C BC ####[facility] Utcjfkcjyk3135[address] [place], [place] [address]Dr. Airam Tripathi Hemoglobin (Bld) [Mass/Vol] 9.2 g/dL Critically low 12.0-16.0 [facility] Comment on above: Performed By: #### C BC ####[facility] Fkpescdkkk186[address] [place], [place] [address]Dr. Airam Tripathi IG # 0.02 10e3/ul Normal 0.00-0.03 [facility] Comment on above: Performed By: #### C BC ####[facility] Hmbhuzihzo7540[address] [place], [place] [address]Dr. Airam Tripathi IG % 0.4 % Normal 0.0-0.5 [facility] Comment on above: Performed By: #### C BC ####[facility] Ultmgfvqmw294[address] [place], [place] [address]Dr. Airam Tripathi LYMPH # 0.8 103/ul Critically low 1.2-3.8 [facility] Comment on above: Performed By: #### C BC ####[facility] [address]ous[address] [place] [address]Dr. Selenaneil Tripathi Lymphocytes/100 WBC (Bld) 14.0 % Critically low 20.5-60.0 [facility] Comment on above: Performed By: #### C BC ####[facility] Muqqgoynng5569[address] [place], [place] [address]Dr. Airam Tripathi MANUAL DIFF REQ NO Normal [facility] Comment on above: Performed By: #### C BC ####[facility] Zravsxyixi4565[address] [place], [place] [address]Dr. Airam Tripathi MCH (RBC) [Entitic mass] 30.4 pg Normal 26.7-34.0 [facility] Comment on above: Performed By: #### C BC ####[facility] Mywxqaaaci4009[address] [place], [place] [address]Dr. Selenaneil Tripathi MCHC (RBC) [Mass/Vol] 31.2 g/dL Normal 29.9-35.2 [facility] Comment on above: Performed By: #### C BC ####[facility] Rcjdphpwhd624[address] [place], [place] [address]Dr. Airam Tripathi MCV (RBC) [Entitic vol] 97.4 fL Normal 81.0-99.0 [facility] Comment on above: Performed By: #### C BC ####[facility] Sjnkyvfxdn380[address] [place], [place] [address]Dr. Airam Tripathi MONO # 0.3 103/ul Normal 0.3-0.8 [facility] Comment on above: Performed By: #### C BC ####[facility] Mvvkaomvio7[address] [place], [place] [address]Dr. Airam Tripathi Monocytes/100 WBC (Bld) 5.6 % Normal 1.7-12.0 [facility] Comment on above: Performed By: #### C BC ####[facility] Szmcobshjh074[address] [place], [place] [address]Dr. Airam Tripathi NEUT # 4.2 103/ul Normal 1.4-6.5 [facility] Comment on above: Performed By: #### C BC ####[facility] [address] [place] [address]Dr. Airam Tripathi Neutrophils/100 WBC (Bld) 76.5 % Critically high 43.0-75.0 [facility] Comment on above: Performed By: #### C BC ####[facility] Iwmbcwvwqu9[address] [place] [address]Dr. Airam Tripathi Platelet mean volume (Bld) [Entitic vol] 9.4 fL Critically low 9.5-13.5 [facility] Comment on above: Performed By: #### C BC ####[facility] [address] [place] [address]Dr. Selenaneil Deuce PLT 250 103/ul Normal 150-450 [facility] Comment on above: Performed By: #### C BC ####[facility] Rgawjjnwrp95[address] [place], [place] [address]Dr. Selenaneil Deuce RBC 3.03 106/ul Critically low 4.20-5.40 [facility] Comment on above: Performed By: #### C BC ####[facility] Cgnebnavgh8786[address] [place], [place] [address]Dr. Airam Deuce WBC 5.5 103/ul Normal 4.0-11.0 [facility] Comment on above: Performed By: #### C BC ####[facility] Objhrbensi01[address] [place], [place] [address]DrKianna Tripathi PROF 14(COMP METB)on 022 Albumin [Mass/Vol] 2.7 g/dL Critically low 3.4-5.0 [facility] Comment on above: Performed By: #### C MP ####[facility] Bvnpjfuahv343[address] [place], [place] [address]Dr. Airam Tripathi Albumin/Globulin [Mass ratio] 0.9 {ratio} Normal [facility] Comment on above: Performed By: #### C MP ####[facility] Ixkfnliauz0528[address] [place], [place] [address]Dr. Airam Deuce ALP [Catalytic activity/Vol] 113 U/L Normal 46-116 [facility] Comment on above: Performed By: #### C MP ####[facility] [address] [place] [address]Dr. Airam Tripathi ALT [Catalytic activity/Vol] 20 U/L Normal 14-59 [facility] Comment on above: Performed By: #### C MP ####[facility] Kn[address]fkuhgm[address] [place] [address]Dr. Airam Deuce Anion gap [Moles/Vol] 11.1 mmol/L Normal [facility] Comment on above: Performed By: #### C MP ####[facility] Jbvdyychbp145[address] [place], [place] [address]Dr. Airam Deuce AST [Catalytic activity/Vol] 19 U/L Normal 15-37 [facility] Comment on above: Performed By: #### C MP ####[facility] Xsrcbstegg1587[address] [place], [place] [address]Dr. Airam Deuce Bilirubin [Mass/Vol] 0.2 mg/dL Normal 0.2-1.0 [facility] Comment on above: Performed By: #### C MP ####[facility] Frfpkcgkhp1890[address] [place], [place] [address]Dr. Airam Deuce Calcium [Mass/Vol] 8.3 mg/dL Critically low 8.5-10.1 [facility] Comment on above: Performed By: #### C MP ####[facility] [address] [place] [address]Dr. Selenaneil Tripathi Chloride [Moles/Vol] 104 mmol/L Normal 98-107 [facility] Comment on above: Performed By: #### C MP ####[facility] Nhvuhpmltc16[address] [place], [place] [address]Dr. Airam Tripathi CO2 [Moles/Vol] 25.3 mmol/L Normal 21.0-32.0 [facility] Comment on above: Performed By: #### C MP ####[facility] Alfpnonvge048[address] [place], [place] [address]Dr. Airam Tripathi Creatinine [Mass/Vol] 1.33 mg/dL Critically high 0.55-1.02 [facility] Comment on above: Performed By: #### C MP ####[facility] [address] [place] [id number]. Airam Deuce EGFR-AF [place] 49 mL/min/1.73m2 Critically low >=60 [facility] Comment on above: Performed By: #### C MP ####[facility] Dqjjyhzzyf48[address] [place] [id number]. Selenaneil Deuce EGFR-NON AF [place] 41 mL/min/1.73m2 Critically low >=60 [facility] Comment on above: Performed By: #### C MP ####[facility] Febvqjhkog39[address] [place] [address]Dr. Airam Tripathi Globulin (S) [Mass/Vol] 3.1 g/dL Normal [facility] Comment on above: Performed By: #### C MP ####[facility] Aswcgthrob[address] [place] [address]Dr. Airam Tripathi Glucose [Mass/Vol] 88 mg/dL Normal 74-106 [facility] Comment on above: Performed By: #### C MP ####[facility] S[address]peuv[address] [place] [address]Dr. Airam Tripathi Potassium [Moles/Vol] 5.4 mmol/L Critically high 3.5-5.1 [facility] Comment on above: Performed By: #### C MP ####[facility] Sbjpologso48[address] [place] [phone]. Airam Tripathi Protein [Mass/Vol] 5.8 g/dL Critically low 6.4-8.2 [facility] Comment on above: Performed By: #### C MP ####[facility] Yrnjhztrlj8[address] [place], [place] [address]Dr. Airam Tripathi Sodium [Moles/Vol] 135 mmol/L Critically low 136-145 [facility] Comment on above: Performed By: #### C MP ####[facility] Sxcgdnsuzh[address] [place], [place] [address]Dr. Airam Tripathi Urea nitrogen [Mass/Vol] 38.0 mg/dL Critically high 7.0-18.0 [facility] Comment on above: Performed By: #### C MP ####[facility] Qokhtqxyal4[address] [place], [place] [address]Dr. Airam Tripathi Urea nitrogen/Creatinine [Mass ratio] 28.6 mg/mg Normal [facility] Comment on above: Performed By: #### C MP ####[facility] Qsuswpynhe1350[address] [place], [place] [address]Dr. Airam Tripathi OSMOLALITYon 04-15-2022 Osmolality [Osmolality] 284 mosm/kg Normal 275-295 [facility] Comment on above: Performed By: #### O SMO ####[facility] Qmjgypkois7416[address] [place], [place] [address]Dr. Airam Tripathi CBC AUTO DIFFon 04-14-2022 BASO # 0.0 103/ul Normal 0.0-0.1 [facility] Comment on above: Performed By: #### C BC ####[facility] Eggbixgggf7450[address] [place], [place] [address]Dr. Airam Tripathi Basophils/100 WBC (Bld) 0.5 % Normal 0.2-2.0 [facility] Comment on above: Performed By: #### C BC ####[facility] Sllnkkwdrs7517[address] [place], [place] [address]Dr. Airam Tripathi EO # 0.3 103/ul Normal 0.0-0.7 [facility] Comment on above: Performed By: #### C BC ####[facility] Rdrdcordbw4548[address] [place], [place] [address]Dr. Airam Tripathi Eosinophils/100 WBC (Bld) 3.6 % Normal 0.9-7.0 [facility] Comment on above: Performed By: #### C BC ####[facility] Ffpufqkqod202[address] [place], [place] [address]Dr. Airam Tripathi Erythrocyte distribution width (RBC) [Ratio] 13.4 % Normal 11.0-15.0 [facility] Comment on above: Performed By: #### C BC ####[facility] Zvn[address]rhowqm4[address] [place] [address]Dr. Airam Tripathi Hematocrit (Bld) [Volume fraction] 30.6 % Critically low 36.0-48.0 [facility] Comment on above: Performed By: #### C BC ####[facility] L[address]luz14[address] [place] [address]Dr. Airam Tripathi Hemoglobin (Bld) [Mass/Vol] 9.7 g/dL Critically low 12.0-16.0 [facility] Comment on above: Performed By: #### C BC ####[facility] Zev[address]cmfnk[address] [place] [address]Dr. Airam Deuce IG # 0.08 10e3/ul Critically high 0.00-0.03 [facility] Comment on above: Performed By: #### C BC ####[facility] Isyrzcjcyo14[address] [place], [place] [address]Dr. Selenaneil Tripathi IG % 0.9 % Critically high 0.0-0.5 [facility] Comment on above: Performed By: #### C BC ####[facility] Kwwsojklim1046[address] [place], [place] [address]Dr. Airam Tripathi LYMPH # 2.1 103/ul Normal 1.2-3.8 [facility] Comment on above: Performed By: #### C BC ####[facility] Z[address]izccdds60[address] [place] [address]Dr. Selenaneil Tripathi Lymphocytes/100 WBC (Bld) 24.2 % Normal 20.5-60.0 [facility] Comment on above: Performed By: #### C BC ####[facility] Am[address]qeuaxn[address] [place] [address]DrKianna Selenaneil Tripathi MANUAL DIFF REQ NO Normal [facility] Comment on above: Performed By: #### C BC ####[facility] Ppztjyqjrj[address] [place], [place] [address]DrKianna Selenaneil Tripathi MCH (RBC) [Entitic mass] 30.4 pg Normal 26.7-34.0 [facility] Comment on above: Performed By: #### C BC ####[facility] Ghcaaqzkkm0878[address] [place], [place] [address]Dr. Airam Tripathi MCHC (RBC) [Mass/Vol] 31.7 g/dL Normal 29.9-35.2 [facility] Comment on above: Performed By: #### C BC ####[facility] Rpojnkkvwl3642 [place] [phone]. Airam Tripathi MCV (RBC) [Entitic vol] 95.9 fL Normal 81.0-99.0 [facility] Comment on above: Performed By: #### C BC ####[facility] Szdxsatvmc1747 [place] [phone]. Airam Deuce MONO # 0.5 103/ul Normal 0.3-0.8 [facility] Comment on above: Performed By: #### C BC ####[facility] Xdnbcokdxe5[address] [place] [address]Dr. Airam Tripathi Monocytes/100 WBC (Bld) 6.0 % Normal 1.7-12.0 [facility] Comment on above: Performed By: #### C BC ####[facility] [address]unrd[address] [place] [address]Dr. Selenaneil Deuce NEUT # 5.6 103/ul Normal 1.4-6.5 [facility] Comment on above: Performed By: #### C BC ####[facility] Hmpunbfgaj1133 [place] [phone]. Selenaneil Tripathi Neutrophils/100 WBC (Bld) 64.8 % Normal 43.0-75.0 [facility] Comment on above: Performed By: #### C BC ####[facility] Smprghoqrc2894 [place] [phone]. Airam Deuce Platelet mean volume (Bld) [Entitic vol] 9.2 fL Critically low 9.5-13.5 [facility] Comment on above: Performed By: #### C BC ####[facility] Agzjfspent27[address] [place] [phone]. Selenaneil Deuce PLT 296 103/ul Normal 150-450 [facility] Comment on above: Performed By: #### C BC ####[facility] Xsquncucpl1214 [place] [address]Dr. Airam Deuce RBC 3.19 106/ul Critically low 4.20-5.40 [facility] Comment on above: Performed By: #### C BC ####[facility] Rkihwqikpj1466 [place] [address]Dr. Airam Deuce WBC 8.6 103/ul Normal 4.0-11.0 [facility] Comment on above: Performed By: #### C BC ####[facility] Qngtkzvbck[address] [place], [place] [address]Dr. Airam Tripathi PROF 14(COMP METB)on 022 Albumin [Mass/Vol] 3.2 g/dL Critically low 3.4-5.0 e [facility] Comment on above: Performed By: #### C MP ####[facility] Mawkvxdyry16[address] [place], [place] [address]Dr. Airam Tripathi Albumin/Globulin [Mass ratio] 1.0 {ratio} Normal [facility] Comment on above: Performed By: #### C MP ####[facility] Nctdvsugpc1074[address] [place], [place] [address]Dr. Selenaneil Tripathi ALP [Catalytic activity/Vol] 126 U/L Critically high 46-116 [facility] Comment on above: Performed By: #### C MP ####[facility] Sdowkefxxk6149[address] [place], [place] [address]Dr. Airam Tripathi ALT [Catalytic activity/Vol] 27 U/L Normal 14-59 [facility] Comment on above: Performed By: #### C MP ####[facility] Uzrfvmxcab55[address] [place], [place] [address]Dr. Airam Tripathi Anion gap [Moles/Vol] 9.6 mmol/L Normal [facility] Comment on above: Performed By: #### C MP ####[facility] Pvfqvrwrnk15[address] [place], [place] [address]Dr. Airam Tripathi AST [Catalytic activity/Vol] 25 U/L Normal 15-37 [facility] Comment on above: Performed By: #### C MP ####[facility] Wvjkmcescp9[address] [place], [place] [address]Dr. Airam Tripathi Bilirubin [Mass/Vol] 0.3 mg/dL Normal 0.2-1.0 [facility] Comment on above: Performed By: #### C MP ####[facility] Mdzpdvgygp27[address] [place], [place] [address]Dr. Airam Tripathi Calcium [Mass/Vol] 8.1 mg/dL Critically low 8.5-10.1 [facility] Comment on above: Performed By: #### C MP ####[facility] Exfszpeowc8[address] [place], [place] [address]Dr. Airam Tripathi Chloride [Moles/Vol] 100 mmol/L Normal 98-107 [facility] Comment on above: Performed By: #### C MP ####[facility] Ymqavrxgfe3[address] [place], [place] [address]Dr. Airam Tripathi CO2 [Moles/Vol] 26.5 mmol/L Normal 21.0-32.0 [facility] Comment on above: Performed By: #### C MP ####[facility] Wnppliqzml0489[address] [place], [place] [address]Dr. Airam Tripathi Creatinine [Mass/Vol] 1.52 mg/dL Critically high 0.55-1.02 [facility] Comment on above: Performed By: #### C MP ####[facility] Wwlthsyvcq4315[address] [place], [place] [address]Dr. Airam Tripathi EGFR-AF [place] 42 mL/min/1.73m2 Critically low >=60 [facility] Comment on above: Performed By: #### C MP ####[facility] Bpzudkzdte9939[address] [place], [place] [address]Dr. Airam Deuce EGFR-NON AF [place] 35 mL/min/1.73m2 Critically low >=60 [facility] Comment on above: Performed By: #### C MP ####[facility] Audsmkodhe[address] [place], [place] [address]Dr. Airam Deuce Globulin (S) [Mass/Vol] 3.3 g/dL Normal [facility] Comment on above: Performed By: #### C MP ####[facility] Hdwltope[address] [place], [place] [id number]. Airam Tripathi Glucose [Mass/Vol] 75 mg/dL Normal 74-106 [facility] Comment on above: Performed By: #### C MP ####[facility] Gxhklakgiz2[address] [place] [address]Dr. Airam Tripathi Potassium [Moles/Vol] 4.1 mmol/L Normal 3.5-5.1 [facility] Comment on above: Performed By: #### C MP ####[facility] Kwucdgbxle8419[address] [place], [place] [address]Dr. Airam Tripathi Protein [Mass/Vol] 6.5 g/dL Normal 6.4-8.2 [facility] Comment on above: Performed By: #### C MP ####[facility] Xbfxglqxer4317[address] [place], [place] [address]Dr. Airam Tripathi Sodium [Moles/Vol] 132 mmol/L Critically low 136-145 [facility] Comment on above: Performed By: #### C MP ####[facility] Xbmdckltei406[address] [place], [place] [address]Dr. Airam Tripathi Urea nitrogen [Mass/Vol] 40.0 mg/dL Critically high 7.0-18.0 [facility] Comment on above: Performed By: #### C MP ####[facility] Eaxgkgdzvt36[address] [place], [place] [address]Dr. Airam Tripathi Urea nitrogen/Creatinine [Mass ratio] 26.3 mg/mg Normal [facility] Comment on above: Performed By: #### C MP ####[facility] Rmfpjizstm97[address] [place], [place] [address]Dr. Airam Tripathi OSMOLALITYon 04-10-2022 Osmolality [Osmolality] 280 mosm/kg Normal 275-295 [facility] Comment on above: Performed By: #### O SMO ####[facility] Jyrxnhvegh4[address] [place], [place] [address]Dr. Airam Tripathi PTH INTACTon 04-09-2022 PTH, Intact 89 pg/mL Critically high 15-65 [facility] Comment on above: Performed By: #### P THINT ####[facility] [address]qmhle[address] [place] [address]Dr. Airam Deuce CBC W MANUAL DIFFon 04-08-20 22 ATYPICAL LYMPH # Normal [facility] Comment on above: Performed By: #### C CHRISTEN ####[facility] Zjhdijwnij70[address] [place] [address]Dr. Airam Tripathi ATYPICAL LYMPH % Normal [facility] Comment on above: Performed By: #### C CHRISTEN ####[facility] Ectzmvrwxr886[address] [place], [place] [address]Dr. Selenaneil Deuce BAND # Normal 0.0-0.3 [facility] Comment on above: Performed By: #### C CHRISTEN ####[facility] Hvfxwnulah70[address] [place], [place] [address]Dr. Airam Tripathi BAND % Normal 0-5 [facility] Comment on above: Performed By: #### C CHRISTEN ####[facility] T[address]vzyclrcz06[address] [place], [place] [address]Dr. Airam Tripathi BASOM # 0.00 103/ul Normal 0.00-0.10 [facility] Comment on above: Performed By: #### C CHRISTEN ####[facility] Yddahiaglh2[address] [place], [place] [address]Dr. Airam Tripathi BASOM % 0.0 % Critically low 0.2-2.0 [facility] Comment on above: Performed By: #### C CHRISTEN ####[facility] Hvyxlsrbne[address] [place], [place] [address]Dr. Selenaneil Deuce BLAST # Normal [facility] Comment on above: Performed By: #### C CHRISTEN ####[facility] Izqrqsrvci[address] [place], [place] [address]Dr. Airam Tripathi BLAST % Normal [facility] [facility] Comment on above: Performed By: #### C CHRISTEN ####[facility] V[address]ruis[address] [place], [place] [address]Dr. Airam Tripathi CORRECTED WBC Normal 4.0-11.0 [facility] Comment on above: Performed By: #### C CHRISTEN ####[facility] Jutmqhoavt[address] [place], [place] [address]DrKianna Tripathi EOS # 0.00 103/ul Normal 0.00-0.70 [facility] Comment on above: Performed By: #### C CHRISTEN ####[facility] Vifxktnvap1514 [place], [place] [address]DzKianna Tripathi EOS% 0.0 % Critically low 0.9-7.0 [facility] Comment on above: Performed By: #### C CHRISTEN ####[facility] Xhsmeidtpi7912 [place], [place] [address]Un. Airam Tripathi HCT 29.7 % Critically low 36.0-48.0 [facility] Comment on above: Performed By: #### C CHRISTEN ####[facility] T[address]kbnzvhv98[address] [place] [id number] Tripathi HGB 9.5 g/dl Critically low 12.0-16.0 [facility] Comment on above: Performed By: #### C CHRISTEN ####[facility] S[address]xfd[address]vx[address] [place], [place] [address]DrKianna Tripathi LYMPHM # 0.42 103/ul Critically low 1.20-3.80 [facility] Comment on above: Performed By: #### C CHRISTEN ####[facility] Kigswartuw8139 [place] [id number] Tripathi LYMPHM% 7.0 % Critically low 20.5-60.0 [facility] Comment on above: Performed By: #### Jodee VELÁSQUEZ ####[facility] Opdrrutpjo0496 [place] [phone]. Airam Tripathi MCH 30.9 pg Normal 26.7-34.0 [facility] Comment on above: Performed By: #### C CHRISTEN ####[facility] Qcxjgquejl8763 [place] [id number] Tripathi MCHC 32.0 g/dl Normal 29.9-35.2 [facility] Comment on above: Performed By: #### C CHRISTEN ####[facility] Vgaggageep8361 [place] [phone] Tripathi MCV 96.7 fL Normal 81.0-99.0 [facility] Comment on above: Performed By: #### C CHRISTEN ####[facility] Tbsuxbwgxw9067 [place] [phone]. Airam Tripathi METAMYELOCYTE # Normal [facility] Comment on above: Performed By: #### C CHRISTEN ####[facility] Igcjxkcxcd8323 [place] [phone]. Airam Tripathi METAMYELOCYTE % Normal [facility] Comment on above: Performed By: #### C CHRISTEN ####[facility] Iwnkuzsbzr0555 [place] [address]Dr. Airam Tripathi MONOM# 0.36 103/ul Normal 0.30-0.80 [facility] Comment on above: Performed By: #### C CHRISTEN ####[facility] Bvheycifru[address] [place], [place] [address]Dr. Airam Tripathi MONOM% 6.0 % Normal 1.7-12.0 [facility] Comment on above: Performed By: #### C CHRISTEN ####[facility] Rrewcxzhfq12[address] [place], [place] [address]Dr. Aiarm Tripathi MPV 9.5 fL Normal 9.5-13.5 [facility] Comment on above: Performed By: #### Jodee VELÁSQUEZ ####[facility] Ktlvdkdazs6[address] [place], [place] [address]Dr. Airam Tripathi MYELOCYTE # Normal [facility] Comment on above: Performed By: #### Jodee VELÁSQUEZ ####[facility] Mpaoagvysx[address] [place], [place] [address]Dr. Airam Tripathi MYELOCYTE % Normal [facility] Comment on above: Performed By: #### Jodee VELÁSQUEZ ####[facility] Sznanlcean66[address] [place], [place] [address]Dr. Airam Tripathi NRBC Normal [facility] Comment on above: Performed By: #### C CHRISTEN ####[facility] Kjonatssua6284 [place] [phone]. Selenaneil Tripathi PLT 185 103/ul Normal 150-450 [facility] Comment on above: Performed By: #### C CHRISTEN ####[facility] Tqelaifdqy4670 [place], [place] [address]Ak. Airam Tripathi RBC 3.07 106/ul Critically low 4.20-5.40 [facility] Comment on above: Performed By: #### Jodee VELÁSQUEZ ####[facility] Whfucuxefp4392 [place], [place] [address]Ao. Airam Tripathi RDW 13.6 % Normal 11.0-15.0 [facility] Comment on above: Performed By: #### Jodee VELÁSQUEZ ####[facility] Cvpggpztvs8622 [place], [place] [address]Sc. Airam Tripathi SEG # 5.22 103/ul Normal 1.40-6.50 [facility] Comment on above: Performed By: #### Jodee VELÁSQUEZ ####[facility] Gssqdvloew0265 [place], [place] [address]Ya. Airam Tripathi SEG % 87.0 % Critically high 43.0-75.0 [facility] Comment on above: Performed By: #### Jodee VELÁSQUEZ ####[facility] Igjjcztmkf5177 [place], [place] [address]Ve. Airam Tripathi WBC 6.0 103/ul Normal 4.0-11.0 [facility] Comment on above: Performed By: #### Jodee VELÁSQUEZ ####[facility] Xertrmuczz3718 [place], [place] [address]Sl. Airam Tripathi FREE THYROXINE INDEX T7on FTI 1.57 Normal 1.30-4.50 [facility] Comment on above: Performed By: #### T 7, TSH, CMP ####[facility] Beginyfnsy[address] [place], [place] [address]Rz. Airam Tripathi T3U 32.0 % Normal 30.0-39.0 [facility] Comment on above: Performed By: #### T 7, TSH, CMP ####[facility] Dzfkkxhfyw1827 [place], [place] [address]Bc. Airam Tripathi T4 [Mass/Vol] 4.90 ug/dL Normal 4.80-13.90 [facility] Comment on above: Performed By: #### T 7, TSH, CMP ####[facility] Ivutizzmsv[address] [place] [address]Dr. Airam Triapthi PROF 14(COMP METB)on 022 Albumin [Mass/Vol] 3.0 g/dL Critically low 3.4-5.0 [facility] Comment on above: Performed By: #### T 7, TSH, CMP ####[facility] Rbbiglmlnb8899 [place] [address]Dr. Airam Tripathi Albumin/Globulin [Mass ratio] 1.0 {ratio} Normal [facility] Comment on above: Performed By: #### T 7, TSH, CMP ####[facility] Pmfqgumrfy6[address] [place], [place] [address]Dr. Airam Tripathi ALP [Catalytic activity/Vol] 106 U/L Normal 46-116 [facility] Comment on above: Performed By: #### T 7, TSH, CMP ####[facility] Xzrcrioftb381[address] [place], [place] [address]Dr. Airam Tripathi ALT [Catalytic activity/Vol] 20 U/L Normal 14-59 [facility] Comment on above: Performed By: #### T 7, TSH, CMP ####[facility] Aomgjbrhzv204[address] [place], [place] [address]Dr. Airam Tripathi Anion gap [Moles/Vol] 10.8 mmol/L Normal [facility] Comment on above: Performed By: #### T 7, TSH, CMP ####[facility] Kovenwxrtu3779[address] [place], [place] [address]Dr. Airam Tripathi AST [Catalytic activity/Vol] 19 U/L Normal 15-37 [facility] Comment on above: Performed By: #### T 7, TSH, CMP ####[facility] Jqfwdclehn8004[address] [place], [place] [address]Dr. Ariam Tripathi Bilirubin [Mass/Vol] 0.3 mg/dL Normal 0.2-1.0 [facility] Comment on above: Performed By: #### T 7, TSH, CMP ####[facility] Byqesdqyge0798[address] [place], [place] [address]Dr. Airam Tripathi Calcium [Mass/Vol] 8.0 mg/dL Critically low 8.5-10.1 [facility] Comment on above: Performed By: #### T 7, TSH, CMP ####[facility] Ppnzxjdefn6820[address] [place], [place] [address]Dr. Airam Tripathi Chloride [Moles/Vol] 100 mmol/L Normal 98-107 [facility] Comment on above: Performed By: #### T 7, TSH, CMP ####[facility] Waqtdtbzfc8067[address] [place], [place] [address]Dr. Airam Tripathi CO2 [Moles/Vol] 24.3 mmol/L Normal 21.0-32.0 [facility] Comment on above: Performed By: #### T 7, TSH, CMP ####[facility] Dtkgwkbizz1265[address] [place], [place] [address]Dr. Airam Tripathi Creatinine [Mass/Vol] 1.12 mg/dL Critically high 0.55-1.02 [facility] Comment on above: Performed By: #### T 7, TSH, CMP ####[facility] Codnfusycv1413[address] [place], [place] [address]Dr. Airam Tripathi EGFR-AF [place] 60 mL/min/1.73m2 Normal >=60 [facility] Comment on above: Performed By: #### T 7, TSH, CMP ####[facility] Oqnphzdwdt5[address] [place], [place] [address]Dr. Airam Tripathi EGFR-NON AF [place] 50 mL/min/1.73m2 Critically low >=60 [facility] Comment on above: Performed By: #### T 7, TSH, CMP ####[facility] Yqskrtspev[address] [place], [place] [address]Dr. Airam Tripathi Globulin (S) [Mass/Vol] 3.0 g/dL Normal [facility] Comment on above: Performed By: #### T 7, TSH, CMP ####[facility] Lmhkgdmkgf2015[address] [place], [place] [address]Dr. Airam Tripathi Glucose [Mass/Vol] 76 mg/dL Normal 74-106 [facility] Comment on above: Performed By: #### T 7, TSH, CMP ####[facility] Vbsduezuwa3590[address] [place], [place] [address]Dr. Airam Tripathi Potassium [Moles/Vol] 4.1 mmol/L Normal 3.5-5.1 [facility] Comment on above: Performed By: #### T 7, TSH, CMP ####[facility] Krxeyqisef4632[address] [place], [place] [address]Dr. Airam Tripathi Protein [Mass/Vol] 6.0 g/dL Critically low 6.4-8.2 [facility] Comment on above: Performed By: #### T 7, TSH, CMP ####[facility] Roxqoeysea1114[address] [place], [place] [address]Dr. Airam Tripathi Sodium [Moles/Vol] 131 mmol/L Critically low 136-145 [facility] Comment on above: Performed By: #### T 7, TSH, CMP ####[facility] Crijhbqhiq8335[address] [place], [place] [address]Dr. Airam Tripathi Urea nitrogen [Mass/Vol] 32.0 mg/dL Critically high 7.0-18.0 [facility] Comment on above: Performed By: #### T 7, TSH, CMP ####[facility] Pjzwujwvuc6[address] [place], [place] [address]Dr. Airam Tripathi Urea nitrogen/Creatinine [Mass ratio] 28.6 mg/mg Normal [facility] Comment on above: Performed By: #### T 7, TSH, CMP ####[facility] Fswuwfltbo4535[address] [place], [place] [address]Dr. Airam Tripathi TSHon 04-08-2022 TSH 0.027 uIU/mL Critically low 0.358-3.74 0 [facility] Comment on above: Performed By: #### T 7, TSH, CMP ####[facility] Ymvqknxzrf155[address] [place], [place] [address]Dr. Airam Tripathi UA RANDOMon 04-08-2022 Bilirubin Ql (U) Negative Normal NEGATIVE [facility] Comment on above: Performed By: #### U A ####[facility] Wpybongkda[address] [place], [place] [address]Dr. Airam Tripathi Clarity (U) CLEAR Normal CLEAR [facility] Comment on above: Performed By: #### U A ####[facility] Hnorbzgubu2451 [place] [address]Dr. Airam Tripathi Color (U) LT. YELLOW Normal YELLOW [facility] Comment on above: Performed By: #### U A ####[facility] Yarewiunbg2739 [place] [address]Dr. Airam Tripathi Glucose Ql (U) Negative Normal NEGATIVE [facility] Comment on above: Performed By: #### U A ####[facility] Jdltrppswd6414[address] [place], [place] [address]Dr. Airam Tripathi Hemoglobin Ql (U) Negative Normal NEGATIVE [facility] Comment on above: Performed By: #### U A ####[facility] Auwnsmdtuq033[address] [place], [place] [address]Dr. Airam Tripathi Ketones Ql (U) Negative Normal NEGATIVE [facility] Comment on above: Performed By: #### U A ####[facility] Mujqgisdgz9[address] [place], [place] [address]Dr. Airam Tripathi LEUKOCYTES Negative Normal NEGATIVE [facility] Comment on above: Performed By: #### U A ####[facility] Bybpufmbow6410[address] [place], [place] [address]Dr. Airam Tripathi Nitrite Ql (U) Negative Normal NEGATIVE [facility] Comment on above: Performed By: #### U A ####[facility] Djirugdsuv067[address] [place], [place] [address]Dr. Airam Tripathi pH (U) 6.0 [pH] Normal 5-9 [facility] Comment on above: Performed By: #### U A ####[facility] Gsnjzbyasv[address] [place], [place] [address]Dr. Airam Tripathi SPEC GRAVITY 1.010 Normal 1.005-<=1. 025 [facility] Comment on above: Performed By: #### U A ####[facility] Xgqzpslzon07[address] [place], [place] [address]Dr. Airam Tripathi UA PROTEIN Negative Normal NEGATIVE/ TRACE [facility] Comment on above: Performed By: #### U A ####[facility] Izwspkimqi4674 [place] [address]Dr. Airam Tripathi Urobilinogen Qn (U) 0.2 {Ligia'U}/dL Normal 0.2 - 1. 0 [facility] Comment on above: Performed By: #### U A ####[facility] Tlnoibzgdf1394 [place] [address]Dr. Airam Tripathi URINE T PROTEIN CREAT RATIOo n 04-08-2022 UR PROT CREAT RAT 0.32 Normal [facility] Comment on above: Performed By: #### U RTPCR ####[facility] Racqcicfgf3396[address] [place], [place] [address]Dr. Airam Tripathi UR TOTAL PROTEIN <6.0 Normal <=12.0 [facility] Comment on above: Performed By: #### U RTPCR ####[facility] Oxbnkqfauq9824[address] [place], [place] [address]Dr. Airam Tripathi URINE CREAT 18.75 mg/dL Critically low 20.00-300. 00 [facility] Comment on above: Performed By: #### U RTPCR ####[facility] Wdpnnklujp9954[address] [place], [place] [address]Dr. Airam Trpiathi FERRITINon 04-06-2022 Ferritin [Mass/Vol] 99.0 ng/mL Normal 8.0-252.0 [facility] Comment on above: Performed By: #### F ETIBC, VITAD, FERR ####[facility] Vbhtefqwan[address] [place], [place] [address]Dr. Airam Tripathi IRON AND TIBCon 04-06-2022 % SATURATION 15.4 % Normal [facility] Comment on above: Performed By: #### F ETIBC, VITAD, FERR ####[facility] Vjshenuukk24[address] [place], [place] [address]Dr. Airam Tripathi Iron [Mass/Vol] 43.0 ug/dL Critically low 50.0-170.0 [facility] Comment on above: Performed By: #### F ETIBC, VITAD, FERR ####[facility] Rozetvzseo[address] [place], [place] [address]Dr. Airam Tripathi TIBC DIRECT 280.0 ug/dL Normal 250.0-450. 0 [facility] Comment on above: Performed By: #### F ETIBC, VITAD, FERR ####[facility] Ppthzxtpdl7087 [place] [address]Dr. Airam Tripathi PROF 14(COMP METB)on 04-06- 022 Albumin [Mass/Vol] 3.2 g/dL Critically low 3.4-5.0 [facility] Comment on above: Performed By: #### C MP, URIC ####[facility] Xfksxmmasz7317 [place] [address]Dr. Airam Tripathi Albumin/Globulin [Mass ratio] 1.0 {ratio} Normal [facility] Comment on above: Performed By: #### C MP, URIC ####[facility] Jvebksadaw[address] [place], [place] [address]Dr. Airam Tripathi ALP [Catalytic activity/Vol] 118 U/L Critically high 46-116 [facility] Comment on above: Performed By: #### C MP, URIC ####[facility] Wbswbokunf0376 [place] [address]Dr. Airam Tripathi ALT [Catalytic activity/Vol] 24 U/L Normal 14-59 [facility] Comment on above: Performed By: #### C MP, URIC ####[facility] Uweqzjvmpt0519 [place] [address]Dr. Airam Tripathi Anion gap [Moles/Vol] 14.4 mmol/L Normal [facility] Comment on above: Performed By: #### C MP, URIC ####[facility] Ijpzxeauvl92[address] [place], [place] [address]Dr. Airam Tripathi AST [Catalytic activity/Vol] 21 U/L Normal 15-37 [facility] Comment on above: Performed By: #### C MP, URIC ####[facility] Entcuvcosx1581 [place] [address]Dr. Airam Tripathi Bilirubin [Mass/Vol] 0.3 mg/dL Normal 0.2-1.0 [facility] Comment on above: Performed By: #### C MP, URIC ####[facility] Fnlucaruzo0276 [place] [id number]. Airam Tripathi Calcium [Mass/Vol] 8.0 mg/dL Critically low 8.5-10.1 [facility] Comment on above: Performed By: #### C MP, URIC ####[facility] Zodskbnlri5844 [place] [address]Dr. Airam Tripathi Chloride [Moles/Vol] 98 mmol/L Normal 98-107 [facility] Comment on above: Performed By: #### C MP, URIC ####[facility] Gxflukorjr7427 [place] [address]Dr. Airam Tripathi CO2 [Moles/Vol] 22.0 mmol/L Normal 21.0-32.0 [facility] Comment on above: Performed By: #### C MP, URIC ####[facility] Dlxqkttzsp7925[address] [place], [place] [address]Dr. Airam Tripathi Creatinine [Mass/Vol] 1.86 mg/dL Critically high 0.55-1.02 [facility] Comment on above: Performed By: #### C MP, URIC ####[facility] Itvjupeenc4010[address] [place], [place] [address]Dr. Airam Tripathi EGFR-AF [place] 33 mL/min/1.73m2 Critically low >=60 [facility] Comment on above: Performed By: #### C MP, URIC ####[facility] Gatyhbsqtz2925[address] [place], [place] [address]Dr. Airam Tripathi EGFR-NON AF [place] 28 mL/min/1.73m2 Critically low >=60 [facility] Comment on above: Performed By: #### C MP, URIC ####[facility] Ablzomkrro2624 [place] [address]Dr. Airam Tripathi Globulin (S) [Mass/Vol] 3.1 g/dL Normal [facility] Comment on above: Performed By: #### C MP, URIC ####[facility] Boxfkjgayc8[address] [place], [place] [address]Dr. Airam Tripathi Glucose [Mass/Vol] 93 mg/dL Normal 74-106 [facility] Comment on above: Performed By: #### C MP, URIC ####[facility] Cniextften6318[address] [place], [place] [address]Dr. Airam Tripathi Potassium [Moles/Vol] 4.4 mmol/L Normal 3.5-5.1 [facility] Comment on above: Performed By: #### C MP, URIC ####[facility] Ugwzhlftqp3398[address] [place], [place] [address]Dr. Airam Tripathi Protein [Mass/Vol] 6.3 g/dL Critically low 6.4-8.2 [facility] Comment on above: Performed By: #### C MP, URIC ####[facility] Hxvysvhqmd8456[address] [place], [place] [address]Dr. Airam Tripathi Sodium [Moles/Vol] 130 mmol/L Critically low 136-145 [facility] Comment on above: Performed By: #### C MP, URIC ####[facility] Vxwelsivqi945[address] [place], [place] [address]Dr. Airam Tripathi Urea nitrogen [Mass/Vol] 49.0 mg/dL Critically high 7.0-18.0 [facility] Comment on above: Performed By: #### C MP, URIC ####[facility] Pcohmfguqd4829[address] [place], [place] [address]Dr. Airam Tripathi Urea nitrogen/Creatinine [Mass ratio] 26.3 mg/mg Normal [facility] Comment on above: Performed By: #### C MP, URIC ####[facility] Pumszjkryk40[address] [place], [place] [address]Dr. Airam Tripathi URIC ACID SERUMon 04-06-2022 Urate [Mass/Vol] 6.5 mg/dL Critically high 2.6-6.0 [facility] Comment on above: Performed By: #### C MP, URIC ####[facility] Q[address]qyfysqz6810[address] [place], [place] [address]Dr. Airam Tripathi VITAMIN D 25 OHon 04-06-2022 VIT D 25-OH 74.5 ng/mL Normal [facility] Comment on above: Performed By: #### F ETIBC, VITAD, FERR ####[facility] Hhcrvqeqsp38[address] [place], [place] [address]Dr. Selenaneil Deuce VIT D RANGES SEE BELOW Normal [facility] Comment on above: Result Comment: <20 ng/mL Vit D deficient 20 - <30 ng/mL Vit D insufficient 30 - 100 ng/mL Vit D sufficient >100 ng/mL Potential Toxicity Performed By: #### F ETIBC, VITAD, FERR ####[facility] Goruyokhmz[address] [place], [place] [address]Dr. Airam Tripathi OSMOLALITYon 04-01-2022 Osmolality [Osmolality] 284 mosm/kg Normal 275-295 [facility] Comment on above: Performed By: #### O SMO ####[facility] Sowyvmwnem6[address] [place], [place] [address]Dr. Airam Tripathi CBC AUTO DIFFon 03-31-2022 BASO # 0.0 103/ul Normal 0.0-0.1 [facility] Comment on above: Performed By: #### C BC ####[facility] Qxryjxtdvo1613[address] [place], [place] [address]Dr. Airam Tripathi Basophils/100 WBC (Bld) 0.3 % Normal 0.2-2.0 [facility] Comment on above: Performed By: #### C BC ####[facility] Jwqtedsvnp9[address] [place], [place] [address]DrKianna Tripathi EO # 0.1 103/ul Normal 0.0-0.7 [facility] Comment on above: Performed By: #### C BC ####[facility] Kfxzntxtmk[address] [place], [place] [address]DrKianna Tripathi Eosinophils/100 WBC (Bld) 2.0 % Normal 0.9-7.0 [facility] Comment on above: Performed By: #### C BC ####[facility] Wnlhdgnndb6596[address] [place], [place] [address]Dr. Airam Tripathi Erythrocyte distribution width (RBC) [Ratio] 13.5 % Normal 11.0-15.0 [facility] Comment on above: Performed By: #### C BC ####[facility] Mcefxhsjio029[address] [place], [place] [address]DrKianna Tripathi Hematocrit (Bld) [Volume fraction] 32.5 % Critically low 36.0-48.0 [facility] Comment on above: Performed By: #### C BC ####[facility] Ijvcutzims3356 [place] [address]Dr. Airam Tripathi Hemoglobin (Bld) [Mass/Vol] 10.1 g/dL Critically low 12.0-16.0 [facility] Comment on above: Performed By: #### C BC ####[facility] Uajyulspid6236[address] [place], [place] [address]Dr. Selenaneil Tripathi IG # 0.03 10e3/ul Normal 0.00-0.03 [facility] Comment on above: Performed By: #### C BC ####[facility] Erjgwiozmb9[address] [place], [place] [address]Dr. Selenaneil Deuce IG % 0.4 % Normal 0.0-0.5 [facility] Comment on above: Performed By: #### C BC ####[facility] Rkjlkqpxxw058[address] [place], [place] [address]Dr. Airam Deuce LYMPH # 1.6 103/ul Normal 1.2-3.8 [facility] Comment on above: Performed By: #### C BC ####[facility] Awaxamcpwc9590[address] [place], [place] [address]Dr. Airam Tripathi Lymphocytes/100 WBC (Bld) 22.6 % Normal 20.5-60.0 [facility] Comment on above: Performed By: #### C BC ####[facility] Smudhylirh8212[address] [place], [place] [address]Dr. Airam Deuce MANUAL DIFF REQ NO Normal [facility] Comment on above: Performed By: #### C BC ####[facility] Eilbeemfcy9474[address] [place], [place] [address]Dr. Airam Deuce MCH (RBC) [Entitic mass] 30.5 pg Normal 26.7-34.0 [facility] Comment on above: Performed By: #### C BC ####[facility] Fsuxopmztm71[address] [place], [place] [address]Dr. Selenaneil Tripathi MCHC (RBC) [Mass/Vol] 31.1 g/dL Normal 29.9-35.2 [facility] Comment on above: Performed By: #### C BC ####[facility] Tisbdnbmpv4208 [place] [address]DrKianna Tripathi MCV (RBC) [Entitic vol] 98.2 fL Normal 81.0-99.0 [facility] Comment on above: Performed By: #### C BC ####[facility] Rrufhkrxez88[address] [place], [place] [address]DrKianna Tripathi MONO # 0.5 103/ul Normal 0.3-0.8 [facility] Comment on above: Performed By: #### C BC ####[facility] Gtvfbtubam6[address] [place], [place] [address]DrKianna Tripathi Monocytes/100 WBC (Bld) 7.3 % Normal 1.7-12.0 [facility] Comment on above: Performed By: #### C BC ####[facility] Eqrwpdlcdu220[address] [place], [place] [address]DrKianna Tripathi NEUT # 4.7 103/ul Normal 1.4-6.5 [facility] Comment on above: Performed By: #### C BC ####[facility] Wubwvmdzsv[address] [place], [place] [address]DrKianna Tripathi Neutrophils/100 WBC (Bld) 67.4 % Normal 43.0-75.0 [facility] Comment on above: Performed By: #### C BC ####[facility] Gxigrhxfjq[address] [place], [place] [address]DrKianna Tripathi Platelet mean volume (Bld) [Entitic vol] 9.5 fL Normal 9.5-13.5 [facility] Comment on above: Performed By: #### C BC ####[facility] Iyzfxdlagn4939[address] [place], [place] [address]DrKianna Tripathi PLT 273 103/ul Normal 150-450 [facility] Comment on above: Performed By: #### C BC ####[facility] Zcwbkcduws224[address] [place], [place] [address]DrKianna Tripathi RBC 3.31 106/ul Critically low 4.20-5.40 [facility] Comment on above: Performed By: #### C BC ####[facility] [address] [place] [address]Dr. Airam Tripathi WBC 7.0 103/ul Normal 4.0-11.0 [facility] Comment on above: Performed By: #### C BC ####[facility] Hmedrsvxmz679[address] [place], [place] [address]Dr. Airam Tripathi PROF 14(COMP METB)on 022 Albumin [Mass/Vol] 3.4 g/dL Normal 3.4-5.0 [facility] Comment on above: Performed By: #### C MP ####[facility] Kqtpvfrljm503[address] [place], [place] [address]Dr. Airam Tripathi Albumin/Globulin [Mass ratio] 1.1 {ratio} Normal [facility] Comment on above: Performed By: #### C MP ####[facility] Alodhnfsik806[address] [place], [place] [address]Dr. Airam Tripathi ALP [Catalytic activity/Vol] 107 U/L Normal 46-116 [facility] Comment on above: Performed By: #### C MP ####[facility] Jwrayfjbph0115[address] [place], [place] [address]Dr. Airam Tripathi ALT [Catalytic activity/Vol] 22 U/L Normal 14-59 [facility] Comment on above: Performed By: #### C MP ####[facility] Pcfaaskcvm900[address] [place], [place] [address]Dr. Airam Tripathi Anion gap [Moles/Vol] 6.8 mmol/L Normal [facility] Comment on above: Performed By: #### C MP ####[facility] Vfghxnajpn8915[address] [place], [place] [address]Dr. Airam Tripathi AST [Catalytic activity/Vol] 23 U/L Normal 15-37 [facility] Comment on above: Performed By: #### C MP ####[facility] Ubwbyvgbbl9699[address] [place], [place] [address]Dr. Airam Tripathi Bilirubin [Mass/Vol] 0.2 mg/dL Normal 0.2-1.0 [facility] Comment on above: Performed By: #### C MP ####[facility] [address]kg[address]eydb[address] [place] [address]Dr. Airam Tripathi Calcium [Mass/Vol] 8.4 mg/dL Critically low 8.5-10.1 [facility] Comment on above: Performed By: #### C MP ####[facility] K[address]uz[address] [place] [address]Dr. Airam Tripathi Chloride [Moles/Vol] 100 mmol/L Normal 98-107 [facility] Comment on above: Performed By: #### C MP ####[facility] Wkmgwpmlwt1018[address] [place], [place] [address]Dr. Airam Tripathi CO2 [Moles/Vol] 29.9 mmol/L Normal 21.0-32.0 [facility] Comment on above: Performed By: #### C MP ####[facility] Yuijsygwyi0760[address] [place], [place] [address]Dr. Airam Tripathi Creatinine [Mass/Vol] 1.20 mg/dL Critically high 0.55-1.02 [facility] Comment on above: Performed By: #### C MP ####[facility] Frzyjjilnm590323 [address] [place], [place] [address]Dr. Airam Tripathi EGFR-AF [place] 56 mL/min/1.73m2 Critically low >=60 [facility] Comment on above: Performed By: #### C MP ####[facility] Tdmyceccph2978[address] [place], [place] [address]Dr. Ariam Deuce EGFR-NON AF [place] 46 mL/min/1.73m2 Critically low >=60 [facility] Comment on above: Performed By: #### C MP ####[facility] Wlalrrzdhz7497[address] [place], [place] [address]Dr. Airam Deuce Globulin (S) [Mass/Vol] 3.0 g/dL Normal [facility] Comment on above: Performed By: #### C MP ####[facility] Oiwcxpzuvn4479[address] [place], [place] [address]Dr. Airam Deuce Glucose [Mass/Vol] 57 mg/dL Critically low 74-106 [facility] Comment on above: Performed By: #### C MP ####[facility] Kvvklgjlhz54[address] [place] [address]Dr. Airam Tripathi Potassium [Moles/Vol] 3.7 mmol/L Normal 3.5-5.1 [facility] Comment on above: Performed By: #### C MP ####[facility] Fcycsddjac9832[address] [place], [place] [address]Dr. Airam Tripathi Protein [Mass/Vol] 6.4 g/dL Normal 6.4-8.2 [facility] Comment on above: Performed By: #### C MP ####[facility] Lwxlvbbche624723 [address] [place], [place] [address]Dr. Airam Tripathi Sodium [Moles/Vol] 133 mmol/L Critically low 136-145 [facility] Comment on above: Performed By: #### C MP ####[facility] Wjcqjseqwd315[address] [place], [place] [address]Dr. Airam Tripathi Urea nitrogen [Mass/Vol] 39.0 mg/dL Critically high 7.0-18.0 [facility] Comment on above: Performed By: #### C MP ####[facility] Zxwcgqbwag4609[address] [place], [place] [address]Dr. Airam Tripathi Urea nitrogen/Creatinine [Mass ratio] 32.5 mg/mg Normal [facility] Comment on above: Performed By: #### C MP ####[facility] Hxyuleycqq8250[address] [place], [place] [address]Dr. Airam Tripathi OSMOLALITYon 03-24-2022 Osmolality [Osmolality] 285 mosm/kg Normal 275-295 [facility] Comment on above: Performed By: #### O SMO ####[facility] Lbtjykhciz953[address] [place], [place] [address]Dr. Airam Tripathi CBC AUTO DIFFon 03-22-2022 BASO # 0.0 103/ul Normal 0.0-0.1 [facility] Comment on above: Performed By: #### C BC ####[facility] Kfsehkcwll4879[address] [place], [place] [address]Dr. Airam Tripathi Basophils/100 WBC (Bld) 0.4 % Normal 0.2-2.0 [facility] Comment on above: Performed By: #### C BC ####[facility] Rbhvdjwfzt0822[address] [place], [place] [address]Dr. Airam Tripathi EO # 0.2 103/ul Normal 0.0-0.7 [facility] Comment on above: Performed By: #### C BC ####[facility] Bwbdxbggox657[address] [place], [place] [address]Dr. Airam Tripathi Eosinophils/100 WBC (Bld) 2.3 % Normal 0.9-7.0 [facility] Comment on above: Performed By: #### C BC ####[facility] Tzqarbgrao136[address] [place], [place] [address]Dr. Airam Tripathi Erythrocyte distribution width (RBC) [Ratio] 13.9 % Normal 11.0-15.0 [facility] Comment on above: Performed By: #### C BC ####[facility] Dzqmjucpla5154[address] [place], [place] [address]Dr. Airam Tripathi Hematocrit (Bld) [Volume fraction] 32.6 % Critically low 36.0-48.0 [facility] Comment on above: Performed By: #### C BC ####[facility] Tktzaanakk5484[address] [place], [place] [address]Dr. Airam Tripathi Hemoglobin (Bld) [Mass/Vol] 10.3 g/dL Critically low 12.0-16.0 [facility] Comment on above: Performed By: #### C BC ####[facility] Rlpkilhpau0256[address] [place], [place] [address]Dr. Airam Tripathi IG # 0.11 10e3/ul Critically high 0.00-0.03 [facility] Comment on above: Performed By: #### C BC ####[facility] Hdhlplhksv9355[address] [place], [place] [address]Dr. Airam Tripathi IG % 1.4 % Critically high 0.0-0.5 [facility] Comment on above: Performed By: #### C BC ####[facility] Zodqoyrxhk7339[address] [place], [place] [address]Dr. Airam Tripathi LYMPH # 1.3 103/ul Normal 1.2-3.8 [facility] Comment on above: Performed By: #### C BC ####[facility] [address]orrhxw[address] [place] [address]Dr. Airam Tripathi Lymphocytes/100 WBC (Bld) 15.9 % Critically low 20.5-60.0 [facility] Comment on above: Performed By: #### C BC ####[facility] E[address]mqtz[address] [place] [address]Dr. Airam Tripathi MANUAL DIFF REQ NO Normal [facility] Comment on above: Performed By: #### C BC ####[facility] Ijmpmisrfg040[address] [place] [address]Dr. Airam Tripathi MCH (RBC) [Entitic mass] 30.7 pg Normal 26.7-34.0 [facility] Comment on above: Performed By: #### C BC ####[facility] Knxaydcuoq2210[address] [place], [place] [address]Dr. Airam Tripathi MCHC (RBC) [Mass/Vol] 31.6 g/dL Normal 29.9-35.2 [facility] Comment on above: Performed By: #### C BC ####[facility] Qxxcrawgmt4204[address] [place], [place] [address]Dr. Airam Tripathi MCV (RBC) [Entitic vol] 97.0 fL Normal 81.0-99.0 [facility] Comment on above: Performed By: #### C BC ####[facility] Tfjhtqvxyz695[address] [place], [place] [address]Dr. Airam Tripathi MONO # 0.6 103/ul Normal 0.3-0.8 [facility] Comment on above: Performed By: #### C BC ####[facility] Fjywdziwra1958[address] [place], [place] [address]Dr. Airam Tripathi Monocytes/100 WBC (Bld) 6.9 % Normal 1.7-12.0 [facility] Comment on above: Performed By: #### C BC ####[facility] Fhnfaewtne200[address] [place], [place] [address]Dr. Airam Tripathi NEUT # 5.9 103/ul Normal 1.4-6.5 [facility] Comment on above: Performed By: #### C BC ####[facility] [address]fdv[address] [place] [id number] Waltersneil Deuce Neutrophils/100 WBC (Bld) 73.1 % Normal 43.0-75.0 [facility] Comment on above: Performed By: #### C BC ####[facility] [address]vpmeec67[address] [place] [address]DrKianna Tripathi Platelet mean volume (Bld) [Entitic vol] 9.5 fL Normal 9.5-13.5 [facility] Comment on above: Performed By: #### C BC ####[facility] Ornxfcyhsu0219[address] [place], [place] [address]DrKianna Tripathi PLT 313 103/ul Normal 150-450 [facility] Comment on above: Performed By: #### C BC ####[facility] Erhlsrsdlb4316[address] [place], [place] [address]DrKianna Tripathi RBC 3.36 106/ul Critically low 4.20-5.40 [facility] Comment on above: Performed By: #### C BC ####[facility] Oqezoabcja6187[address] [place], [place] [address]DrKianna Tripathi WBC 8.1 103/ul Normal 4.0-11.0 [facility] Comment on above: Performed By: #### C BC ####[facility] Xwlvyicpjj9624[address] [place], [place] [address]Dr. Airam Tripathi PROF 14(COMP METB)on 022 Albumin [Mass/Vol] 3.3 g/dL Critically low 3.4-5.0 [facility] Comment on above: Performed By: #### C MP ####[facility] Huazkracjx920[address] [place], [place] [address]DrKianna Tripathi Albumin/Globulin [Mass ratio] 1.0 {ratio} Normal [facility] Comment on above: Performed By: #### C MP ####[facility] Trpxurlodk6554[address] [place], [place] [address]Dr. Walterslan Tripathi ALP [Catalytic activity/Vol] 113 U/L Normal 46-116 [facility] Comment on above: Performed By: #### C MP ####[facility] Ysgtosqqok4[address] [place] [address]Dr. Airam Tripathi ALT [Catalytic activity/Vol] 21 U/L Normal 14-59 [facility] Comment on above: Performed By: #### C MP ####[facility] Gkopzwdoet0846[address] [place], [place] [address]Dr. Airam Deuce Anion gap [Moles/Vol] 12.2 mmol/L Normal [facility] Comment on above: Performed By: #### C MP ####[facility] Qxjgxdfniz8716[address] [place], [place] [address]Dr. Airam Deuce AST [Catalytic activity/Vol] 21 U/L Normal 15-37 [facility] Comment on above: Performed By: #### C MP ####[facility] Hwxnhodwoi5256[address] [place], [place] [address]Dr. Airam Deuce Bilirubin [Mass/Vol] 0.2 mg/dL Normal 0.2-1.0 [facility] Comment on above: Performed By: #### C MP ####[facility] Kdlurfpqte313[address] [place], [place] [address]Dr. Airam Deuce Calcium [Mass/Vol] 8.4 mg/dL Critically low 8.5-10.1 [facility] Comment on above: Performed By: #### C MP ####[facility] Iidqvrajly534923 [address] [place], [place] [address]Dr. Airam Deuce Chloride [Moles/Vol] 103 mmol/L Normal 98-107 [facility] Comment on above: Performed By: #### C MP ####[facility] Ewwajhzugk359[address] [place], [place] [address]Dr. Selenaneil Tripathi CO2 [Moles/Vol] 24.4 mmol/L Normal 21.0-32.0 [facility] Comment on above: Performed By: #### C MP ####[facility] Eghrieoywu019[address] [place], [place] [address]Dr. Yineil Tripathi Creatinine [Mass/Vol] 1.11 mg/dL Critically high 0.55-1.02 [facility] Comment on above: Performed By: #### C MP ####[facility] Fr[address]ripmzi40[address] [place] [address]Dr. Airam Deuce EGFR-AF [place] >60 Normal >=60 [facility] Comment on above: Performed By: #### C MP ####[facility] Vlcrwmcoap33[address] [place] [address]Dr. Airam Tripathi EGFR-NON AF [place] 50 mL/min/1.73m2 Critically low >=60 [facility] Comment on above: Performed By: #### C MP ####[facility] Hmrrydohvo7334[address] [place], [place] [address]Dr. Airam Tripathi Globulin (S) [Mass/Vol] 3.2 g/dL Normal [facility] Comment on above: Performed By: #### C MP ####[facility] Ffmutryqjl161[address] [place], [place] [address]Dr. Airam Tripathi Glucose [Mass/Vol] 84 mg/dL Normal 74-106 [facility] Comment on above: Performed By: #### C MP ####[facility] Lzyhlhorzz4919[address] [place], [place] [address]Dr. Airam Tripathi Potassium [Moles/Vol] 4.6 mmol/L Normal 3.5-5.1 [facility] Comment on above: Performed By: #### C MP ####[facility] Alcnbjxwky8894[address] [place], [place] [address]Dr. Airam Tripathi Protein [Mass/Vol] 6.5 g/dL Normal 6.4-8.2 [facility] Comment on above: Performed By: #### C MP ####[facility] Ybwtxpipfe4709[address] [place], [place] [address]Dr. Airam Tripathi Sodium [Moles/Vol] 135 mmol/L Critically low 136-145 [facility] Comment on above: Performed By: #### C MP ####[facility] Dzqknynker7476[address] [place], [place] [address]Dr. Airam Tripathi Urea nitrogen [Mass/Vol] 39.0 mg/dL Critically high 7.0-18.0 [facility] Comment on above: Performed By: #### C MP ####[facility] Onojlpmslt7624[address] [place], [place] [address]Dr. Airam Tripathi Urea nitrogen/Creatinine [Mass ratio] 35.1 mg/mg Normal [facility] Comment on above: Performed By: #### C MP ####[facility] Ugepjbvqbk3176[address] [place], [place] [address]Dr. Airam Tripathi OSMOLALITYon 03-17-2022 Osmolality [Osmolality] 277 mosm/kg Normal 275-295 [facility] Comment on above: Performed By: #### O SMO ####[facility] Hqljewdbyo3936[address] [place], [place] [address]Dr. Airam Tripathi CBC AUTO DIFFon 03-15-2022 BASO # 0.0 103/ul Normal 0.0-0.1 [facility] Comment on above: Performed By: #### C BC ####[facility] Nxowjcljcv2448[address] [place], [place] [address]Dr. Airam Tripathi Basophils/100 WBC (Bld) 0.4 % Normal 0.2-2.0 [facility] Comment on above: Performed By: #### C BC ####[facility] Tpwobjovnn337[address] [place], [place] [address]DrKianna Tripathi EO # 0.1 103/ul Normal 0.0-0.7 [facility] Comment on above: Performed By: #### C BC ####[facility] Ganvjoctsz5316[address] [place], [place] [address]DrKianna Tripathi Eosinophils/100 WBC (Bld) 2.4 % Normal 0.9-7.0 [facility] Comment on above: Performed By: #### C BC ####[facility] Tuiaiwlrfp3556[address] [place], [place] [address]Dr. Airam Tripathi Erythrocyte distribution width (RBC) [Ratio] 13.9 % Normal 11.0-15.0 [facility] Comment on above: Performed By: #### C BC ####[facility] Uqnnvaepdv3587[address] [place], [place] [address]Dr. Airam Tripathi Hematocrit (Bld) [Volume fraction] 31.2 % Critically low 36.0-48.0 [facility] Comment on above: Performed By: #### C BC ####[facility] [address]ewwtknj[address] [place] [address]DrKianna Airam Tripathi Hemoglobin (Bld) [Mass/Vol] 9.9 g/dL Critically low 12.0-16.0 [facility] Comment on above: Performed By: #### C BC ####[facility] Kobzvljixt025[address] [place], [place] [address]DrKianna Selenaneil Tripathi IG # 0.03 10e3/ul Normal 0.00-0.03 [facility] Comment on above: Performed By: #### C BC ####[facility] Hfuwnrecgt746[address] [place], [place] [address]DrKianna Selenaneil Tripathi IG % 0.6 % Critically high 0.0-0.5 [facility] Comment on above: Performed By: #### C BC ####[facility] Oxoejndukn3059[address] [place], [place] [address]DrKianna Selenaneil Tripathi LYMPH # 1.5 103/ul Normal 1.2-3.8 [facility] Comment on above: Performed By: #### C BC ####[facility] Htmjswztww1959[address] [place], [place] [address]DrKianna Selenaneil Tripathi Lymphocytes/100 WBC (Bld) 29.4 % Normal 20.5-60.0 [facility] Comment on above: Performed By: #### C BC ####[facility] Wedxdmwjsz2916[address] [place], [place] [address]DrKianna Selenaneil Tripathi MANUAL DIFF REQ NO Normal [facility] Comment on above: Performed By: #### C BC ####[facility] Fcblrujqyd2896[address] [place], [place] [address]DrKianna Tripathi MCH (RBC) [Entitic mass] 30.5 pg Normal 26.7-34.0 [facility] Comment on above: Performed By: #### C BC ####[facility] Xconfqwrfm6206[address] [place], [place] [address]DrKianna Tripathi MCHC (RBC) [Mass/Vol] 31.7 g/dL Normal 29.9-35.2 [facility] Comment on above: Performed By: #### C BC ####[facility] K[address]ssvdywd11[address] [place] [address]DrKianna Tripathi MCV (RBC) [Entitic vol] 96.0 fL Normal 81.0-99.0 [facility] Comment on above: Performed By: #### C BC ####[facility] Hljzgkptcz859[address] [place], [place] [address]DrKianna Tripathi MONO # 0.4 103/ul Normal 0.3-0.8 [facility] Comment on above: Performed By: #### C BC ####[facility] Pienlbniuu4114[address] [place], [place] [address]DrKianna Tripathi Monocytes/100 WBC (Bld) 7.0 % Normal 1.7-12.0 [facility] Comment on above: Performed By: #### C BC ####[facility] Bltrihbqzj4215[address] [place], [place] [address]DrKianna Tripathi NEUT # 3.0 103/ul Normal 1.4-6.5 [facility] Comment on above: Performed By: #### C BC ####[facility] Uopqdpaoib0684[address] [place], [place] [address]DrKianna Tripathi Neutrophils/100 WBC (Bld) 60.2 % Normal 43.0-75.0 [facility] Comment on above: Performed By: #### C BC ####[facility] Kbziqzctsd7070[address] [place], [place] [address]DrKianna Tripathi Platelet mean volume (Bld) [Entitic vol] 9.6 fL Normal 9.5-13.5 [facility] Comment on above: Performed By: #### C BC ####[facility] Hdhxpbjkjo464[address] [place], [place] [address]DrKianna Tripathi PLT 258 103/ul Normal 150-450 [facility] Comment on above: Performed By: #### C BC ####[facility] Nrcrkiackr659[address] [place], [place] [address]DrKianna Tripathi RBC 3.25 106/ul Critically low 4.20-5.40 [facility] Comment on above: Performed By: #### C BC ####[facility] Xpmxhtqmvh050[address] [place], [place] [address]Dr. Airam Tripathi WBC 5.0 103/ul Normal 4.0-11.0 [facility] Comment on above: Performed By: #### C BC ####[facility] Oterqnohoe3007[address] [place], [place] [address]Dr. Airam Tripathi PROF 14(COMP METB)on 022 Albumin [Mass/Vol] 3.3 g/dL Critically low 3.4-5.0 [facility] Comment on above: Performed By: #### C MP ####[facility] Grbznhxlhd4978[address] [place], [place] [address]Dr. Airam Tripathi Albumin/Globulin [Mass ratio] 1.1 {ratio} Normal [facility] Comment on above: Performed By: #### C MP ####[facility] Szlfbsdjvu4439[address] [place], [place] [address]Dr. Airam Tripathi ALP [Catalytic activity/Vol] 106 U/L Normal 46-116 [facility] Comment on above: Performed By: #### C MP ####[facility] Xdyiuiitfn8989[address] [place], [place] [address]Dr. Airam Tripathi ALT [Catalytic activity/Vol] 22 U/L Normal 14-59 [facility] Comment on above: Performed By: #### C MP ####[facility] Podepxyxiz112[address] [place], [place] [address]Dr. Airam Tripathi Anion gap [Moles/Vol] 11.4 mmol/L Normal [facility] Comment on above: Performed By: #### C MP ####[facility] Amxfrxeacl5347[address] [place], [place] [address]Dr. Airam Tripathi AST [Catalytic activity/Vol] 22 U/L Normal 15-37 [facility] Comment on above: Performed By: #### C MP ####[facility] Wickxujtln0759[address] [place], [place] [address]Dr. Airam Tripathi Bilirubin [Mass/Vol] 0.3 mg/dL Normal 0.2-1.0 [facility] Comment on above: Performed By: #### C MP ####[facility] Gxggcjgwzv4060[address] [place], [place] [address]Dr. Airam Tripathi Calcium [Mass/Vol] 8.1 mg/dL Critically low 8.5-10.1 [facility] Comment on above: Performed By: #### C MP ####[facility] Qiqrbdnuan3997[address] [place], [place] [address]Dr. Airam Tripathi Chloride [Moles/Vol] 100 mmol/L Normal 98-107 [facility] Comment on above: Performed By: #### C MP ####[facility] Ojiehpxxcc8956[address] [place], [place] [address]Dr. Airam Tripathi CO2 [Moles/Vol] 25.6 mmol/L Normal 21.0-32.0 [facility] Comment on above: Performed By: #### C MP ####[facility] Wfiaecmuyj327[address] [place], [place] [address]Dr. Airam Tripathi Creatinine [Mass/Vol] 1.21 mg/dL Critically high 0.55-1.02 [facility] Comment on above: Performed By: #### C MP ####[facility] Robsyjjgjz0448[address] [place], [place] [address]Dr. Airam Tripathi EGFR-AF [place] 55 mL/min/1.73m2 Critically low >=60 [facility] Comment on above: Performed By: #### C MP ####[facility] Bkwqctmqzb0328[address] [place], [place] [address]Dr. Airam Tripathi EGFR-NON AF [place] 45 mL/min/1.73m2 Critically low >=60 [facility] Comment on above: Performed By: #### C MP ####[facility] Tmsqpudbpm6850[address] [place], [place] [address]Dr. Airam Tripathi Globulin (S) [Mass/Vol] 3.0 g/dL Normal [facility] Comment on above: Performed By: #### C MP ####[facility] Tjkmqktlyi4514[address] [place], [place] [address]Dr. Airam Tripathi Glucose [Mass/Vol] 84 mg/dL Normal 74-106 [facility] Comment on above: Performed By: #### C MP ####[facility] Tgazeatkaw4149[address] [place], [place] [address]Dr. Airam Tripathi Potassium [Moles/Vol] 4.0 mmol/L Normal 3.5-5.1 [facility] Comment on above: Performed By: #### C MP ####[facility] Gpdghfivpx0687[address] [place], [place] [address]DrKianna Tripathi Protein [Mass/Vol] 6.3 g/dL Critically low 6.4-8.2 [facility] Comment on above: Performed By: #### C MP ####[facility] Zbhlpighhy4[address] [place], [place] [address]DrKianna Tripathi Sodium [Moles/Vol] 133 mmol/L Critically low 136-145 [facility] Comment on above: Performed By: #### C MP ####[facility] [facility] Affvywpdze[address] [place], [place] [address]DrKianna Tripathi Urea nitrogen [Mass/Vol] 29.0 mg/dL Critically high 7.0-18.0 [facility] Comment on above: Performed By: #### C MP ####[facility] Vsvmlfepaz[address] [place], [place] [address]DrKianna Tripathi Urea nitrogen/Creatinine [Mass ratio] 24.0 mg/mg Normal [facility] Comment on above: Performed By: #### C MP ####[facility] Qehqoqkwan[address] [place], [place] [address]DrKianna Tripathi OSMOLALITYon 03-12-2022 Osmolality [Osmolality] 285 mosm/kg Normal 275-295 [facility] Comment on above: Performed By: #### O SMO ####[facility] Mqymvmdotv9174[address] [place], [place] [address]DrKianna Tripathi CBC AUTO DIFFon 03-10-2022 BASO # 0.0 103/ul Normal 0.0-0.1 [facility] Comment on above: Performed By: #### C BC ####[facility] Ckryyduafr54[address] [place], [place] [address]DrKianna Tripathi Basophils/100 WBC (Bld) 0.3 % Normal 0.2-2.0 [facility] Comment on above: Performed By: #### C BC ####[facility] Zolgefsfbm1286[address] [place], [place] [address]Dr. Airam Tripathi EO # 0.2 103/ul Normal 0.0-0.7 [facility] Comment on above: Performed By: #### C BC ####[facility] Fidwtjrndt796[address] [place], [place] [address]Dr. Airam Tripathi Eosinophils/100 WBC (Bld) 2.7 % Normal 0.9-7.0 [facility] Comment on above: Performed By: #### C BC ####[facility] Zqlvqsvjbu7076[address] [place], [place] [address]Dr. Airam Tripathi Erythrocyte distribution width (RBC) [Ratio] 14.4 % Normal 11.0-15.0 [facility] Comment on above: Performed By: #### C BC ####[facility] Vydqnudrdy4374[address] [place], [place] [address]Dr. Airam Tripathi Hematocrit (Bld) [Volume fraction] 32.5 % Critically low 36.0-48.0 [facility] Comment on above: Performed By: #### C BC ####[facility] Vdbljmqctr4534[address] [place], [place] [address]Dr. Airam Tripathi Hemoglobin (Bld) [Mass/Vol] 10.1 g/dL Critically low 12.0-16.0 [facility] Comment on above: Performed By: #### C BC ####[facility] Nepaglliki8184[address] [place], [place] [address]Dr. Airam Tripathi IG # 0.03 10e3/ul Normal 0.00-0.03 [facility] Comment on above: Performed By: #### C BC ####[facility] Wdfcdbyrqt8119[address] [place], [place] [address]Dr. Airam Tripathi IG % 0.4 % Normal 0.0-0.5 [facility] Comment on above: Performed By: #### C BC ####[facility] O[address]ugcf[address] [place] [address]Ku. Airam Deuce LYMPH # 1.4 103/ul Normal 1.2-3.8 [facility] Comment on above: Performed By: #### C BC ####[facility] [address] [place] [address]Dr. Airam Deuce Lymphocytes/100 WBC (Bld) 19.4 % Critically low 20.5-60.0 [facility] Comment on above: Performed By: #### C BC ####[facility] Anxujnlhki[address] [place] [address]Dr. Selenaneil Tripathi MANUAL DIFF REQ NO Normal [facility] Comment on above: Performed By: #### C BC ####[facility] Quhlunffqq2186 [place] [address]Dr. Airam Deuce MCH (RBC) [Entitic mass] 30.6 pg Normal 26.7-34.0 [facility] Comment on above: Performed By: #### C BC ####[facility] Qgiapvqpoq2338[address] [place], [place] [address]Dr. Airam Deuce MCHC (RBC) [Mass/Vol] 31.1 g/dL Normal 29.9-35.2 [facility] Comment on above: Performed By: #### C BC ####[facility] Lhpmzqfbhc4086[address] [place], [place] [address]Dr. Selenaneil Tripathi MCV (RBC) [Entitic vol] 98.5 fL Normal 81.0-99.0 [facility] Comment on above: Performed By: #### C BC ####[facility] Jozguiwrjj1360[address] [place], [place] [address]Dr. Selenaneil Tripathi MONO # 0.5 103/ul Normal 0.3-0.8 [facility] Comment on above: Performed By: #### C BC ####[facility] Znryizdyhd0416[address] [place], [place] [address]Dr. Selenaneil Tripathi Monocytes/100 WBC (Bld) 6.7 % Normal 1.7-12.0 [facility] Comment on above: Performed By: #### C BC ####[facility] Jxztehbrth5207[address] [place], [place] [address]Dr. Airam Tripathi NEUT # 5.2 103/ul Normal 1.4-6.5 [facility] Comment on above: Performed By: #### C BC ####[facility] [address] [place] [address]Dr. Airam Tripathi Neutrophils/100 WBC (Bld) 70.5 % Normal 43.0-75.0 [facility] Comment on above: Performed By: #### C BC ####[facility] Pmwqewhkxt7859 [place] [address]Dr. Airam Tripathi Platelet mean volume (Bld) [Entitic vol] 9.8 fL Normal 9.5-13.5 [facility] Comment on above: Performed By: #### C BC ####[facility] Vraazwleoj35[address] [place] [address]Dr. Airam Deuce PLT 277 103/ul Normal 150-450 [facility] Comment on above: Performed By: #### C BC ####[facility] Kncyrbczet139[address] [place], [place] [address]Dr. Airam Deuce RBC 3.30 106/ul Critically low 4.20-5.40 [facility] Comment on above: Performed By: #### C BC ####[facility] Zcvpfclvkq059[address] [place], [place] [address]Dr. Airam Deuce WBC 7.4 103/ul Normal 4.0-11.0 [facility] Comment on above: Performed By: #### C BC ####[facility] Zydpupsqcr43[address] [place] [address]DrKianna Tripathi PROF 14(COMP METB)on 022 Albumin [Mass/Vol] 3.6 g/dL Normal 3.4-5.0 [facility] Comment on above: Performed By: #### C MP ####[facility] Bomxayntxb5[address] [place], [place] [address]DrKianna Waltersneil Deuce Albumin/Globulin [Mass ratio] 1.1 {ratio} Normal [facility] Comment on above: Performed By: #### C MP ####[facility] Lasacmrqlw4[address] [place] [address]Dr. Airam Tripathi ALP [Catalytic activity/Vol] 112 U/L Normal 46-116 [facility] Comment on above: Performed By: #### C MP ####[facility] Dbfzvfnqxf09[address] [place] [address]Dr. Airam Tripathi ALT [Catalytic activity/Vol] 26 U/L Normal 14-59 [facility] Comment on above: Performed By: #### C MP ####[facility] Ldzawhaqti22[address] [place] [address]Dr. Airam Deuce Anion gap [Moles/Vol] 12.0 mmol/L Normal [facility] Comment on above: Performed By: #### C MP ####[facility] Myymllekol2059[address] [place], [place] [address]Dr. Airam Tripathi AST [Catalytic activity/Vol] 25 U/L Normal 15-37 [facility] Comment on above: Performed By: #### C MP ####[facility] Oormlbydbd6287[address] [place], [place] [address]Dr. Airam Deuce Bilirubin [Mass/Vol] 0.4 mg/dL Normal 0.2-1.0 [facility] Comment on above: Performed By: #### C MP ####[facility] Ssiuciijpb8709[address] [place], [place] [address]Dr. Airam Deuce Calcium [Mass/Vol] 8.9 mg/dL Normal 8.5-10.1 [facility] Comment on above: Performed By: #### C MP ####[facility] Ztaqczrkeg7[address] [place], [place] [address]Dr. Airam Deuce Chloride [Moles/Vol] 101 mmol/L Normal 98-107 [facility] Comment on above: Performed By: #### C MP ####[facility] Gqrrdbuhcm1925[address] [place], [place] [address]Dr. Airam Deuce CO2 [Moles/Vol] 24.0 mmol/L Normal 21.0-32.0 [facility] Comment on above: Performed By: #### C MP ####[facility] Nvvncayuze7806[address] [place], [place] [address]Dr. Airam Tripathi Creatinine [Mass/Vol] 1.51 mg/dL Critically high 0.55-1.02 [facility] Comment on above: Performed By: #### C MP ####[facility] T[address]gxpviy[address] [place] [address]Dr. Selenaneil Deuce EGFR-AF [place] 43 mL/min/1.73m2 Critically low >=60 [facility] Comment on above: Performed By: #### C MP ####[facility] Vwrqtwerev8[address] [place] [address]Dr. Airam Tripathi EGFR-NON AF [place] 35 mL/min/1.73m2 Critically low >=60 [facility] Comment on above: Performed By: #### C MP ####[facility] Gwumevrksb9787[address] [place], [place] [address]Dr. Airam Tripathi Globulin (S) [Mass/Vol] 3.2 g/dL Normal [facility] Comment on above: Performed By: #### C MP ####[facility] Ezwnbaputn450[address] [place], [place] [address]Dr. Airam Tripathi Glucose [Mass/Vol] 82 mg/dL Normal 74-106 [facility] Comment on above: Performed By: #### C MP ####[facility] Qdbkgghdzn2030[address] [place], [place] [address]Dr. Airam Tripathi Potassium [Moles/Vol] 4.0 mmol/L Normal 3.5-5.1 [facility] Comment on above: Performed By: #### C MP ####[facility] Vrzvjbbyxl0925[address] [place], [place] [address]Dr. Airam Tripathi Protein [Mass/Vol] 6.8 g/dL Normal 6.4-8.2 [facility] Comment on above: Performed By: #### C MP ####[facility] Uurcoewhcy797[address] [place], [place] [address]Dr. Airam Tripathi Sodium [Moles/Vol] 133 mmol/L Critically low 136-145 [facility] Comment on above: Performed By: #### C MP ####[facility] Layojogmax7948[address] [place], [place] [address]Dr. Airam Tripathi Urea nitrogen [Mass/Vol] 37.0 mg/dL Critically high 7.0-18.0 [facility] Comment on above: Performed By: #### C MP ####[facility] Xcclejqapr0416[address] [place], [place] [address]Dr. Airam Tripathi Urea nitrogen/Creatinine [Mass ratio] 24.5 mg/mg Normal [facility] Comment on above: Performed By: #### C MP ####[facility] Aualdfrhgz0580[address] [place], [place] [address]Dr. Airam Tripathi OSMOLALITYon 03-07-2022 Osmolality [Osmolality] 284 mosm/kg Normal 275-295 [facility] Comment on above: Performed By: #### O SMO ####[facility] Ogjputzedf6666[address] [place], [place] [address]Dr. Airam Tripathi CBC AUTO DIFFon 03-04-2022 BASO # 0.0 103/ul Normal 0.0-0.1 [facility] Comment on above: Performed By: #### C BC ####[facility] Skajksxgif[address] [place], [place] [address]Dr. Airam Deuce Basophils/100 WBC (Bld) 0.3 % Normal 0.2-2.0 [facility] Comment on above: Performed By: #### C BC ####[facility] Ltpsndlswn[address] [place], [place] [address]Dr. Airam Tripathi EO # 0.1 103/ul Normal 0.0-0.7 [facility] Comment on above: Performed By: #### C BC ####[facility] Eidwfqoare4338[address] [place], [place] [address]Dr. Airam Deuce Eosinophils/100 WBC (Bld) 2.0 % Normal 0.9-7.0 [facility] Comment on above: Performed By: #### C BC ####[facility] Odifkztsgf1274[address] [place], [place] [address]Dr. Airam Tripathi Erythrocyte distribution width (RBC) [Ratio] 14.5 % Normal 11.0-15.0 [facility] Comment on above: Performed By: #### C BC ####[facility] Gpcbhwqpbi5988[address] [place], [place] [address]Dr. Airam Tripathi Hematocrit (Bld) [Volume fraction] 35.4 % Critically low 36.0-48.0 [facility] Comment on above: Performed By: #### C BC ####[facility] [address]zuy6[address] [place] [address]DrKianna Tripathi Hemoglobin (Bld) [Mass/Vol] 11.0 g/dL Critically low 12.0-16.0 [facility] Comment on above: Performed By: #### C BC ####[facility] [address]qsjqqtby4[address] [place] [address]Dr. Airam Tripathi IG # 0.03 10e3/ul Normal 0.00-0.03 [facility] Comment on above: Performed By: #### C BC ####[facility] Rbxoedlrhl5807 [place] [address]Dr. Airam Tripathi IG % 0.4 % Normal 0.0-0.5 [facility] Comment on above: Performed By: #### C BC ####[facility] Mrrremxrhc4157[address] [place], [place] [address]Dr. Airam Tripathi LYMPH # 1.7 103/ul Normal 1.2-3.8 [facility] Comment on above: Performed By: #### C BC ####[facility] O[address]vhptxhe[address] [place] [address]DrKianna Tripathi Lymphocytes/100 WBC (Bld) 23.8 % Normal 20.5-60.0 [facility] Comment on above: Performed By: #### C BC ####[facility] Hfwppterxs3317 [place] [address]DrKianna Tripathi MANUAL DIFF REQ NO Normal [facility] Comment on above: Performed By: #### C BC ####[facility] Kmjxxywdps5425[address] [place], [place] [address]DrKianna Tripathi MCH (RBC) [Entitic mass] 30.0 pg Normal 26.7-34.0 [facility] Comment on above: Performed By: #### C BC ####[facility] Rxvwefobpv5698[address] [place], [place] [address]Dr. Airam Tripathi MCHC (RBC) [Mass/Vol] 31.1 g/dL Normal 29.9-35.2 [facility] Comment on above: Performed By: #### C BC ####[facility] [address]oz[address]ae[address] [place] [id number]. Airam Tripathi MCV (RBC) [Entitic vol] 96.5 fL Normal 81.0-99.0 [facility] Comment on above: Performed By: #### C BC ####[facility] Ieptynwrtp464[address] [place], [place] [address]DrKianna Tripathi MONO # 0.5 103/ul Normal 0.3-0.8 [facility] Comment on above: Performed By: #### C BC ####[facility] Zrptkavfvm234[address] [place], [place] [address]Dr. Airam Tripathi Monocytes/100 WBC (Bld) 6.6 % Normal 1.7-12.0 [facility] Comment on above: Performed By: #### C BC ####[facility] Takorvlyoe8318[address] [place], [place] [address]Dr. Airam Tripathi NEUT # 4.7 103/ul Normal 1.4-6.5 [facility] Comment on above: Performed By: #### C BC ####[facility] Zvyhuuxtgv8045[address] [place], [place] [address]DrKianna Tripathi Neutrophils/100 WBC (Bld) 66.9 % Normal 43.0-75.0 [facility] Comment on above: Performed By: #### C BC ####[facility] Ppfjszyjpj875[address] [place], [place] [address]Dr. Airam Tripathi Platelet mean volume (Bld) [Entitic vol] 10.2 fL Normal 9.5-13.5 [facility] Comment on above: Performed By: #### C BC ####[facility] Xzzesclhcb6386[address] [place], [place] [address]Dr. Airam Tripathi PLT 270 103/ul Normal 150-450 [facility] Comment on above: Performed By: #### C BC ####[facility] Nrcgubeaij3[address] [place], [place] [id number]. Airam Tripathi RBC 3.67 106/ul Critically low 4.20-5.40 [facility] Comment on above: Performed By: #### C BC ####[facility] Vjdqisvxlq0215 [place] [address]Dr. Airam Tripathi WBC 7.0 103/ul Normal 4.0-11.0 [facility] Comment on above: Performed By: #### C BC ####[facility] Wcedgsndlp4269[address] [place], [place] [address]DrKianna Tripathi PROF 14(COMP METB)on 022 Albumin [Mass/Vol] 3.3 g/dL Critically low 3.4-5.0 [facility] Comment on above: Performed By: #### C MP ####[facility] Netryrhrpm860[address] [place], [place] [address]Dr. Airam Tripathi Albumin/Globulin [Mass ratio] 1.0 {ratio} Normal [facility] Comment on above: Performed By: #### C MP ####[facility] Ptvfizmncz332[address] [place], [place] [address]Dr. Airam Tripathi ALP [Catalytic activity/Vol] 107 U/L Normal 46-116 [facility] Comment on above: Performed By: #### C MP ####[facility] Tqqqthizdi5174[address] [place], [place] [address]Dr. Airam Tripathi ALT [Catalytic activity/Vol] 23 U/L Normal 14-59 [facility] Comment on above: Performed By: #### C MP ####[facility] Zfrpyvlymh707[address] [place], [place] [address]Dr. Airam Tripathi Anion gap [Moles/Vol] 13.0 mmol/L Normal [facility] Comment on above: Performed By: #### C MP ####[facility] Liguslmair4665[address] [place], [place] [address]Dr. Airam Tripathi AST [Catalytic activity/Vol] 30 U/L Normal 15-37 [facility] Comment on above: Performed By: #### C MP ####[facility] Kwvhwvtxsu011[address] [place], [place] [address]Dr. Airam Tripathi Bilirubin [Mass/Vol] 0.2 mg/dL Normal 0.2-1.0 [facility] Comment on above: Performed By: #### C MP ####[facility] Hunmppuxoe9499[address] [place], [place] [address]Dr. Airam Tripathi Calcium [Mass/Vol] 8.8 mg/dL Normal 8.5-10.1 [facility] Comment on above: Performed By: #### C MP ####[facility] Zlfocaoagq5218[address] [place], [place] [address]Dr. Airam Tripathi Chloride [Moles/Vol] 103 mmol/L Normal 98-107 [facility] Comment on above: Performed By: #### C MP ####[facility] Wklhyzkdpr7244[address] [place], [place] [address]Dr. Airam Tripathi CO2 [Moles/Vol] 24.9 mmol/L Normal 21.0-32.0 [facility] Comment on above: Performed By: #### C MP ####[facility] Usdcobjise1897[address] [place], [place] [address]Dr. Airam Tripathi Creatinine [Mass/Vol] 1.06 mg/dL Critically high 0.55-1.02 [facility] Comment on above: Performed By: #### C MP ####[facility] Tfletbddhg9337[address] [place], [place] [address]Dr. Airam Tripathi EGFR-AF [place] >60 Normal >=60 [facility] Comment on above: Performed By: #### C MP ####[facility] Levhuoxvhb429[address] [place], [place] [address]Dr. Airam Deuce EGFR-NON AF [place] 53 mL/min/1.73m2 Critically low >=60 [facility] Comment on above: Performed By: #### C MP ####[facility] Codsnujysp683[address] [place], [place] [address]Dr. Airam Deuce Globulin (S) [Mass/Vol] 3.2 g/dL Normal [facility] Comment on above: Performed By: #### C MP ####[facility] Rtibgdqbry4635[address] [place], [place] [address]Dr. Selenaneil Deuce Glucose [Mass/Vol] 91 mg/dL Normal 74-106 [facility] Comment on above: Performed By: #### C MP ####[facility] Vpirjabdzr5190 [place] [address]Dr. Airam Tripathi Potassium [Moles/Vol] 3.9 mmol/L Normal 3.5-5.1 [facility] Comment on above: Performed By: #### C MP ####[facility] Lgcripfthj0660[address] [place], [place] [address]Dr. Airam Deuce Protein [Mass/Vol] 6.5 g/dL Normal 6.4-8.2 [facility] Comment on above: Performed By: #### C MP ####[facility] Cnwukdoscs0408[address] [place], [place] [address]Dr. Airam Deuce Sodium [Moles/Vol] 137 mmol/L Normal 136-145 [facility] Comment on above: Performed By: #### C MP ####[facility] Qgjlldukic4806[address] [place], [place] [address]Dr. Airam Deuce Urea nitrogen [Mass/Vol] 27.0 mg/dL Critically high 7.0-18.0 [facility] Comment on above: Performed By: #### C MP ####[facility] Jqyrkpqedy3179[address] [place], [place] [address]Dr. Airam Deuce Urea nitrogen/Creatinine [Mass ratio] 25.5 mg/mg Normal [facility] Comment on above: Performed By: #### C MP ####[facility] Xcehcsyqiz5415[address] [place], [place] [address]Dr. Airam Deuce OSMOLALITYon 03-03-2022 Osmolality [Osmolality] 383 mosm/kg Invalid Interpretation Code [id number] [facility] Comment on above: Result Comment: Ve rified by repeat analysis Performed By: #### O SMO ####[facility] Jcztonxbqz627[address] [place], [place] [address]Dr. Airam Deuce CBC AUTO DIFFon 02-22-2022 BASO # 0.0 103/ul Normal 0.0-0.1 [facility] Comment on above: Performed By: #### C BC ####[facility] Sfswannqcu6[address] [place] [address]Dr. Airam Tripathi Basophils/100 WBC (Bld) 0.4 % Normal 0.2-2.0 [facility] Comment on above: Performed By: #### C BC ####[facility] Tvruwrmtgg2264 [place] [address]Dr. Airam rTipathi EO # 0.2 103/ul Normal 0.0-0.7 [facility] Comment on above: Performed By: #### C BC ####[facility] F[address]lwdzjvq27[address] [place], [place] [address]Dr. Airam Tripathi Eosinophils/100 WBC (Bld) 3.9 % Normal 0.9-7.0 [facility] Comment on above: Performed By: #### C BC ####[facility] Gyyrzznmkc063[address] [place], [place] [address]Dr. Airam Tripathi Erythrocyte distribution width (RBC) [Ratio] 13.9 % Normal 11.0-15.0 [facility] Comment on above: Performed By: #### C BC ####[facility] Hxsxyfzowy177[address] [place], [place] [address]Dr. Airam Tripathi Hematocrit (Bld) [Volume fraction] 32.7 % Critically low 36.0-48.0 [facility] Comment on above: Performed By: #### C BC ####[facility] Kitrhswdjt2377[address] [place], [place] [address]Dr. Airam Tripathi Hemoglobin (Bld) [Mass/Vol] 10.7 g/dL Critically low 12.0-16.0 [facility] Comment on above: Performed By: #### C BC ####[facility] Zpnmfdfafe116[address] [place], [place] [address]Dr. Airam Tripathi IG # 0.02 10e3/ul Normal 0.00-0.03 [facility] Comment on above: Performed By: #### C BC ####[facility] Kmzgnlpzrm6[address] [place], [place] [address]Dr. Airam Tripathi IG % 0.4 % Normal 0.0-0.5 [facility] Comment on above: Performed By: #### C BC ####[facility] [address]qclfmjhcv13[address] [place] [id number]. Airam Deuce LYMPH # 1.2 103/ul Normal 1.2-3.8 [facility] Comment on above: Performed By: #### C BC ####[facility] Eidpoxxlsh7224 [place] [id number]. Airam Deuce Lymphocytes/100 WBC (Bld) 25.0 % Normal 20.5-60.0 [facility] Comment on above: Performed By: #### C BC ####[facility] Ukzununicc66[address] [place] [address]Dr. Selenaneil Tripathi MANUAL DIFF REQ NO Normal [facility] Comment on above: Performed By: #### C BC ####[facility] Izzzndjiwt8426 [place] [address]Dr. Airam Deuce MCH (RBC) [Entitic mass] 30.7 pg Normal 26.7-34.0 [facility] Comment on above: Performed By: #### C BC ####[facility] U[address]ziwqhhl86[address] [place], [place] [address]Dr. Airam Deuce MCHC (RBC) [Mass/Vol] 32.7 g/dL Normal 29.9-35.2 [facility] Comment on above: Performed By: #### C BC ####[facility] [address]vcqtwir25[address] [place] [address]Dr. Airam Deuce MCV (RBC) [Entitic vol] 93.7 fL Normal 81.0-99.0 [facility] Comment on above: Performed By: #### C BC ####[facility] [address]et[address]jdgy[address] [place] [address]Dr. Airam Deuce MONO # 0.4 103/ul Normal 0.3-0.8 [facility] Comment on above: Performed By: #### C BC ####[facility] Biqfkbnjps8468 [place] [address]Dr. Airam Deuce Monocytes/100 WBC (Bld) 7.5 % Normal 1.7-12.0 [facility] Comment on above: Performed By: #### C BC ####[facility] Yjcgdyvaes225[address] [place] [id number]. Airam Tripathi NEUT # 3.1 103/ul Normal 1.4-6.5 [facility] Comment on above: Performed By: #### C BC ####[facility] Lsnmbmranh9740 [place] [address]Dr. Airam Tripathi Neutrophils/100 WBC (Bld) 62.8 % Normal 43.0-75.0 [facility] Comment on above: Performed By: #### C BC ####[facility] Ozerckrgyj48[address] [place] [address]Dr. Airam Tripathi Platelet mean volume (Bld) [Entitic vol] 9.5 fL Normal 9.5-13.5 [facility] [facility] Comment on above: Performed By: #### C BC ####[facility] [address]hdsv[address] [place] [address]Dr. Airam Deuce PLT 250 103/ul Normal 150-450 [facility] Comment on above: Performed By: #### C BC ####[facility] Sboccppnon[address] [place], [place] [address]Dr. Airam Deuce RBC 3.49 106/ul Critically low 4.20-5.40 [facility] Comment on above: Performed By: #### C BC ####[facility] Qwytkcinzm6[address] [place], [place] [address]Dr. Airam Tripathi WBC 4.9 103/ul Normal 4.0-11.0 [facility] Comment on above: Performed By: #### C BC ####[facility] Ktgksjoggm[address] [place] [address]Dr. Airam Tripathi PROF 14(COMP METB)on 022 Albumin [Mass/Vol] 3.3 g/dL Critically low 3.4-5.0 [facility] Comment on above: Performed By: #### C MP ####[facility] Xykpaobxiy[address] [place] [address]Dr. Airam Tripathi Albumin/Globulin [Mass ratio] 1.0 {ratio} Normal [facility] Comment on above: Performed By: #### C MP ####[facility] Facoxlynyq0[address] [place] [address]Dr. Airam Tripathi ALP [Catalytic activity/Vol] 127 U/L Critically high 46-116 [facility] Comment on above: Performed By: #### C MP ####[facility] Thpumyvczi8960 [place] [address]Dr. Airam Tripathi ALT [Catalytic activity/Vol] 22 U/L Normal 14-59 [facility] Comment on above: Performed By: #### C MP ####[facility] Hhxexpzepg58[address] [place], [place] [address]Dr. Airam Tripathi Anion gap [Moles/Vol] 11.9 mmol/L Normal [facility] Comment on above: Performed By: #### C MP ####[facility] Iscfefcogv133[address] [place], [place] [address]Dr. Airam Deuce AST [Catalytic activity/Vol] 21 U/L Normal 15-37 [facility] Comment on above: Performed By: #### C MP ####[facility] Prvoykgfyl408[address] [place], [place] [address]Dr. Airam Tripathi Bilirubin [Mass/Vol] 0.3 mg/dL Normal 0.2-1.0 [facility] Comment on above: Performed By: #### C MP ####[facility] Auurdolpvz1829[address] [place], [place] [address]Dr. Airam Deuce Calcium [Mass/Vol] 8.6 mg/dL Normal 8.5-10.1 [facility] Comment on above: Performed By: #### C MP ####[facility] Whvqajgdmv1237[address] [place], [place] [address]Dr. Airam Deuce Chloride [Moles/Vol] 105 mmol/L Normal 98-107 [facility] Comment on above: Performed By: #### C MP ####[facility] Txoxjvhqnk25[address] [place], [place] [address]Dr. Airam Deuce CO2 [Moles/Vol] 23.6 mmol/L Normal 21.0-32.0 [facility] Comment on above: Performed By: #### C MP ####[facility] Xtvhhsyagx3417[address] [place], [place] [address]Dr. Airam Tripathi Creatinine [Mass/Vol] 1.29 mg/dL Critically high 0.55-1.02 [facility] Comment on above: Performed By: #### C MP ####[facility] Jyqagjmjpm5[address] [place] [address]Dr. Airam Tripathi EGFR-AF [place] 51 mL/min/1.73m2 Critically low >=60 [facility] Comment on above: Performed By: #### C MP ####[facility] Xowoppejol59[address] [place] [address]Dr. Airam Tripathi EGFR-NON AF [place] 42 mL/min/1.73m2 Critically low >=60 [facility] Comment on above: Performed By: #### C MP ####[facility] Spoukwcylp7015[address] [place], [place] [address]Dr. Airam Tripathi Globulin (S) [Mass/Vol] 3.2 g/dL Normal [facility] Comment on above: Performed By: #### C MP ####[facility] Fwezphvdzh765[address] [place], [place] [address]Dr. Airam Tripathi Glucose [Mass/Vol] 94 mg/dL Normal 74-106 [facility] Comment on above: Performed By: #### C MP ####[facility] Hfyrmcztho6201[address] [place], [place] [address]Dr. Airam Tripathi Potassium [Moles/Vol] 3.5 mmol/L Normal 3.5-5.1 [facility] Comment on above: Performed By: #### C MP ####[facility] Rhxsgwrtkx9[address] [place], [place] [address]Dr. Airam Tripathi Protein [Mass/Vol] 6.5 g/dL Normal 6.4-8.2 [facility] Comment on above: Performed By: #### C MP ####[facility] Prmyzzbtze9166[address] [place], [place] [address]Dr. Airam Tripathi Sodium [Moles/Vol] 137 mmol/L Normal 136-145 [facility] Comment on above: Performed By: #### C MP ####[facility] Myevpolzml7648[address] [place], [place] [address]Dr. Airam Tripathi Urea nitrogen [Mass/Vol] 37.0 mg/dL Critically high 7.0-18.0 [facility] Comment on above: Performed By: #### C MP ####[facility] Ejaezouxwr7216[address] [place], [place] [address]Dr. Airam Tripathi Urea nitrogen/Creatinine [Mass ratio] 28.7 mg/mg Normal [facility] Comment on above: Performed By: #### C MP ####[facility] Huudpdedci539[address] [place], [place] [address]Dr. Airam Tripathi OSMOLALITYon 02-20-2022 Osmolality [Osmolality] 283 mosm/kg Normal 275-295 [facility] Comment on above: Performed By: #### O SMO ####[facility] Bueipmnyko8080[address] [place], [place] [address]Dr. Airam Tripathi CBC AUTO DIFFon 02-17-2022 BASO # 0.0 103/ul Normal 0.0-0.1 [facility] Comment on above: Performed By: #### C BC ####[facility] Eoslsutfag7959[address] [place], [place] [address]Dr. Airam Tripathi Basophils/100 WBC (Bld) 0.3 % Normal 0.2-2.0 [facility] Comment on above: Performed By: #### C BC ####[facility] Sradlvwmfk45232[address] [place], [place] [address]Dr. Airam Tripathi EO # 0.1 103/ul Normal 0.0-0.7 [facility] Comment on above: Performed By: #### C BC ####[facility] Gotzjppxui543[address] [place], [place] [address]Dr. Airam Tripathi Eosinophils/100 WBC (Bld) 1.6 % Normal 0.9-7.0 [facility] Comment on above: Performed By: #### C BC ####[facility] Ztxsfyzlcd4549[address] [place], [place] [address]Dr. Airam Tripathi Erythrocyte distribution width (RBC) [Ratio] 13.4 % Normal 11.0-15.0 [facility] Comment on above: Performed By: #### C BC ####[facility] Givohgknel16[address] [place] [address]Dr. Airam Tripathi Hematocrit (Bld) [Volume fraction] 31.4 % Critically low 36.0-48.0 [facility] Comment on above: Performed By: #### C BC ####[facility] Xiyhzeeqsn4076 [place] [address]Dr. Airam Deuce Hemoglobin (Bld) [Mass/Vol] 10.0 g/dL Critically low 12.0-16.0 [facility] Comment on above: Performed By: #### C BC ####[facility] Jncuzypydx9936 [place] [address]Dr. Airam Tripathi IG # 0.03 10e3/ul Normal 0.00-0.03 [facility] Comment on above: Performed By: #### C BC ####[facility] Pwigraabts2349[address] [place], [place] [address]Dr. Airam Tripathi IG % 0.4 % Normal 0.0-0.5 [facility] Comment on above: Performed By: #### C BC ####[facility] Znonkbpmfc7855[address] [place], [place] [address]Dr. Airam Tripathi LYMPH # 1.6 103/ul Normal 1.2-3.8 [facility] Comment on above: Performed By: #### C BC ####[facility] Cwcainrzjj3546[address] [place], [place] [address]Dr. Airam Tripathi Lymphocytes/100 WBC (Bld) 24.5 % Normal 20.5-60.0 [facility] Comment on above: Performed By: #### C BC ####[facility] Avtxvowdls0675[address] [place], [place] [address]Dr. Selenaneil Tripathi MANUAL DIFF REQ NO Normal [facility] Comment on above: Performed By: #### C BC ####[facility] Jmdvbdukwe0985[address] [place], [place] [address]DrKianna Selenaneil Tripathi MCH (RBC) [Entitic mass] 30.2 pg Normal 26.7-34.0 [facility] Comment on above: Performed By: #### C BC ####[facility] Zuybvrmicn764[address] [place], [place] [address]Dr. Airam Tripathi MCHC (RBC) [Mass/Vol] 31.8 g/dL Normal 29.9-35.2 [facility] Comment on above: Performed By: #### C BC ####[facility] Fpdbkztiuc98[address] [place] [id number]. Airam Deuce MCV (RBC) [Entitic vol] 94.9 fL Normal 81.0-99.0 [facility] Comment on above: Performed By: #### C BC ####[facility] Lbvurtqrtf5348 [place] [phone]. Airam Deuce MONO # 0.4 103/ul Normal 0.3-0.8 [facility] Comment on above: Performed By: #### C BC ####[facility] Ksgjmjleck3984 [place] [address]Dr. Airam Tripathi Monocytes/100 WBC (Bld) 5.8 % Normal 1.7-12.0 [facility] Comment on above: Performed By: #### C BC ####[facility] Dihkadkbix0670 [place] [address]Dr. Selenaneil eDuce NEUT # 4.5 103/ul Normal 1.4-6.5 [facility] Comment on above: Performed By: #### C BC ####[facility] Xeezdzonod5387 [place] [phone]. Airam Deuce Neutrophils/100 WBC (Bld) 67.4 % Normal 43.0-75.0 [facility] Comment on above: Performed By: #### C BC ####[facility] Yaeutlprty6094 [place] [phone]. Airam Deuce Platelet mean volume (Bld) [Entitic vol] 9.6 fL Normal 9.5-13.5 [facility] Comment on above: Performed By: #### C BC ####[facility] Ogpvrvxszp9618 [place] [phone]. Selenaneil Deuce PLT 251 103/ul Normal 150-450 [facility] Comment on above: Performed By: #### C BC ####[facility] Gxsencdesq2250 [place] [address]Dr. Selenaneil Deuce RBC 3.31 106/ul Critically low 4.20-5.40 [facility] Comment on above: Performed By: #### C BC ####[facility] Fjvttdohtu9509 [place] [address]Dr. Airam Tripathi WBC 6.7 103/ul Normal 4.0-11.0 [facility] Comment on above: Performed By: #### C BC ####[facility] Nfrfypylcx1031 [place] [address]Dr. Airam Tripathi PROF 14(COMP METB)on 022 Albumin [Mass/Vol] 3.5 g/dL Normal 3.4-5.0 [facility] Comment on above: Performed By: #### C MP ####[facility] Adddwskvnu5129[address] [place], [place] [address]Dr. Airam Tripathi Albumin/Globulin [Mass ratio] 1.2 {ratio} Normal [facility] Comment on above: Performed By: #### C MP ####[facility] Ijditgkopm806[address] [place], [place] [address]Dr. Airam Tripathi ALP [Catalytic activity/Vol] 130 U/L Critically high 46-116 [facility] Comment on above: Performed By: #### C MP ####[facility] Rezjpqfnkt7459[address] [place], [place] [address]Dr. Airam Tripathi ALT [Catalytic activity/Vol] 18 U/L Normal 14-59 [facility] Comment on above: Performed By: #### C MP ####[facility] Omufoynfxr6145[address] [place], [place] [address]Dr. Airam Tripathi Anion gap [Moles/Vol] 14.0 mmol/L Normal [facility] Comment on above: Performed By: #### C MP ####[facility] Myrhrbgumj0555[address] [place], [place] [address]Dr. Airam Tripathi AST [Catalytic activity/Vol] 20 U/L Normal 15-37 [facility] Comment on above: Performed By: #### C MP ####[facility] Nfxrdrvzni995[address] [place], [place] [address]Dr. Airam Tripathi Bilirubin [Mass/Vol] 0.3 mg/dL Normal 0.2-1.0 [facility] Comment on above: Performed By: #### C MP ####[facility] Ucjtwschmj8507[address] [place], [place] [address]Dr. Airam Tripathi Calcium [Mass/Vol] 8.5 mg/dL Normal 8.5-10.1 [facility] Comment on above: Performed By: #### C MP ####[facility] Uvkrtmeuku859[address] [place], [place] [address]Dr. Airam Deuce Chloride [Moles/Vol] 100 mmol/L Normal 98-107 [facility] Comment on above: Performed By: #### C MP ####[facility] Itgopsryoo0487[address] [place], [place] [address]Dr. Airam Deuce CO2 [Moles/Vol] 22.7 mmol/L Normal 21.0-32.0 [facility] Comment on above: Performed By: #### C MP ####[facility] Ckoawpgwbb8588[address] [place], [place] [address]Dr. Airam Deuce Creatinine [Mass/Vol] 1.28 mg/dL Critically high 0.55-1.02 [facility] Comment on above: Performed By: #### C MP ####[facility] Trdbpsmcwz3850[address] [place], [place] [address]Dr. Airam Deuce EGFR-AF [place] 52 mL/min/1.73m2 Critically low >=60 [facility] Comment on above: Performed By: #### C MP ####[facility] Wjiwwzszxk2359[address] [place], [place] [address]Dr. Selenaneil Deuce EGFR-NON AF [place] 43 mL/min/1.73m2 Critically low >=60 [facility] Comment on above: Performed By: #### C MP ####[facility] Umfirzvxxe2440[address] [place], [place] [address]Dr. Airam Tripathi Globulin (S) [Mass/Vol] 2.9 g/dL Normal [facility] Comment on above: Performed By: #### C MP ####[facility] Vasbhdfcuw1884[address] [place], [place] [address]Dr. Airam Tripathi Glucose [Mass/Vol] 93 mg/dL Normal 74-106 [facility] Comment on above: Performed By: #### C MP ####[facility] Cnzjojdkah0709 [place] [address]Dr. Airam Tripathi Potassium [Moles/Vol] 3.7 mmol/L Normal 3.5-5.1 [facility] Comment on above: Performed By: #### C MP ####[facility] Mqrknoserm6320[address] [place], [place] [address]Dr. Airam Tripathi Protein [Mass/Vol] 6.4 g/dL Normal 6.4-8.2 [facility] Comment on above: Performed By: #### C MP ####[facility] Aalqvvkzvm5[address] [place], [place] [address]Dr. Airam Tripathi Sodium [Moles/Vol] 133 mmol/L Critically low 136-145 [facility] Comment on above: Performed By: #### C MP ####[facility] Iytnuhisdd9647[address] [place], [place] [address]Dr. Airam Tripathi Urea nitrogen [Mass/Vol] 44.0 mg/dL Critically high 7.0-18.0 [facility] Comment on above: Performed By: #### C MP ####[facility] Uslugredgb6645[address] [place], [place] [address]Dr. Airam Tripathi Urea nitrogen/Creatinine [Mass ratio] 34.4 mg/mg Normal [facility] Comment on above: Performed By: #### C MP ####[facility] Utifnapwps3349[address] [place], [place] [address]Dr. Airam Tripathi OSMOLALITYon 02-10-2022 Osmolality [Osmolality] 288 mosm/kg Normal 275-295 [facility] Comment on above: Performed By: #### O SMO ####[facility] Bptdmlygei9084[address] [place], [place] [address]Dr. Airam Tripathi CBC AUTO DIFFon 02-08-2022 BASO # 0.0 103/ul Normal 0.0-0.1 [facility] Comment on above: Performed By: #### C BC ####[facility] Mgqmmjhbhk1246 [place] [id number]. Airam Tripathi Basophils/100 WBC (Bld) 0.3 % Normal 0.2-2.0 [facility] Comment on above: Performed By: #### C BC ####[facility] Vdnstspldr2484 [place] [phone]. Airam Tripathi EO # 0.2 103/ul Normal 0.0-0.7 [facility] Comment on above: Performed By: #### C BC ####[facility] Dchyhvukeo[address] [place], [place] [address]Dr. Airam Tripathi Eosinophils/100 WBC (Bld) 2.1 % Normal 0.9-7.0 [facility] Comment on above: Performed By: #### C BC ####[facility] Odgiylxoef3355[address] [place], [place] [address]Dr. Airam Tripathi Erythrocyte distribution width (RBC) [Ratio] 13.4 % Normal 11.0-15.0 [facility] Comment on above: Performed By: #### C BC ####[facility] Neerllixmg1513[address] [place], [place] [address]Dr. Airam Tripathi Hematocrit (Bld) [Volume fraction] 35.1 % Critically low 36.0-48.0 [facility] Comment on above: Performed By: #### C BC ####[facility] Xnospiupft4206[address] [place], [place] [address]Dr. Airam Tripathi Hemoglobin (Bld) [Mass/Vol] 10.9 g/dL Critically low 12.0-16.0 [facility] Comment on above: Performed By: #### C BC ####[facility] Lbnjdemtyk2925[address] [place], [place] [address]Dr. Airam Tripathi IG # 0.03 10e3/ul Normal 0.00-0.03 [facility] Comment on above: Performed By: #### C BC ####[facility] Fjrhkfhsnk8899[address] [place], [place] [address]Dr. Airam Tripathi IG % 0.3 % Normal 0.0-0.5 [facility] Comment on above: Performed By: #### C BC ####[facility] Rqqatzysuj3416 [place] [phone]. Airam Tripathi LYMPH # 1.3 103/ul Normal 1.2-3.8 [facility] Comment on above: Performed By: #### C BC ####[facility] Zotdrsmixz0146 [place] [phone]. Airam Tripathi Lymphocytes/100 WBC (Bld) 13.1 % Critically low 20.5-60.0 [facility] Comment on above: Performed By: #### C BC ####[facility] Wrftdzbbzw0262 [place] [phone]. Airam Tripathi MANUAL DIFF REQ NO Normal [facility] Comment on above: Performed By: #### C BC ####[facility] Wzdcablvcr2617 [place] [address]Dr. Airam Tripathi MCH (RBC) [Entitic mass] 30.4 pg Normal 26.7-34.0 [facility] Comment on above: Performed By: #### C BC ####[facility] Kubjbtrbkw6263 [place] [address]Dr. Airam Tripathi MCHC (RBC) [Mass/Vol] 31.1 g/dL Normal 29.9-35.2 [facility] Comment on above: Performed By: #### C BC ####[facility] Wjsxzexmci7596 [place] [phone]. Airam Tripathi MCV (RBC) [Entitic vol] 98.0 fL Normal 81.0-99.0 [facility] Comment on above: Performed By: #### C BC ####[facility] Xxoecsmlrl2937 [place] [phone]. Airam Tripathi MONO # 0.5 103/ul Normal 0.3-0.8 [facility] Comment on above: Performed By: #### C BC ####[facility] Hbagyilfsb7244 [place] [address]Dr. Airam Tripathi Monocytes/100 WBC (Bld) 4.7 % Normal 1.7-12.0 [facility] Comment on above: Performed By: #### C BC ####[facility] Wgogqimqjl3575 [place] [phone]. Airam Tripathi NEUT # 7.7 103/ul Critically high 1.4-6.5 [facility] Comment on above: Performed By: #### C BC ####[facility] Erusibsbfi3235 [place] [phone]. Airam Tripathi Neutrophils/100 WBC (Bld) 79.5 % Critically high 43.0-75.0 [facility] Comment on above: Performed By: #### C BC ####[facility] Kwhzqgmknh9693 [place] [phone]. Airam Deuce Platelet mean volume (Bld) [Entitic vol] 9.6 fL Normal 9.5-13.5 [facility] Comment on above: Performed By: #### C BC ####[facility] Swxberzopx4701 [place] [phone]. Airam Tripathi PLT 268 103/ul Normal 150-450 [facility] Comment on above: Performed By: #### C BC ####[facility] Vhejwethke0058 [place] [phone]. Airam Deuce RBC 3.58 106/ul Critically low 4.20-5.40 [facility] Comment on above: Performed By: #### C BC ####[facility] Ibwmgdwvzd1952 [place] [phone]. Airam Tripathi WBC 9.7 103/ul Normal 4.0-11.0 [facility] Comment on above: Performed By: #### C BC ####[facility] Jodymszchq7269 [place] [address]Dr. Airam Tripathi PROF 14(COMP METB)on 022 Albumin [Mass/Vol] 3.6 g/dL Normal 3.4-5.0 [facility] Comment on above: Performed By: #### C MP ####[facility] Gfeduabhjp0978 [place] [phone]. Airam Tripathi Albumin/Globulin [Mass ratio] 1.1 {ratio} Normal [facility] Comment on above: Performed By: #### C MP ####[facility] Yftzlotnbz5497 [place] [address]Dr. Airam Tripathi ALP [Catalytic activity/Vol] 131 U/L Critically high 46-116 [facility] Comment on above: Performed By: #### C MP ####[facility] Vlhbmlptnx8960 [place] [address]Dr. Airam Tripathi ALT [Catalytic activity/Vol] 22 U/L Normal 14-59 [facility] Comment on above: Performed By: #### C MP ####[facility] Wujaphlljh8138 [place] [address]Dr. Airam Tripathi Anion gap [Moles/Vol] 13.3 mmol/L Normal [facility] Comment on above: Performed By: #### C MP ####[facility] Fzvxpbqshg378[address] [place], [place] [address]Dr. Airam Tripathi AST [Catalytic activity/Vol] 23 U/L Normal 15-37 [facility] Comment on above: Performed By: #### C MP ####[facility] Jieyuabrmt39[address] [place], [place] [address]Dr. Airam Tripathi Bilirubin [Mass/Vol] 0.3 mg/dL Normal 0.2-1.0 [facility] Comment on above: Performed By: #### C MP ####[facility] Ywcpuqxemi9[address] [place], [place] [address]Dr. Airam Tripathi Calcium [Mass/Vol] 8.7 mg/dL Normal 8.5-10.1 [facility] Comment on above: Performed By: #### C MP ####[facility] Pmsyyqmelz8188 [place] [address]Dr. Airam Tripathi Chloride [Moles/Vol] 104 mmol/L Normal 98-107 [facility] Comment on above: Performed By: #### C MP ####[facility] Ucnsfignyr4166[address] [place], [place] [address]Dr. Airam Tripathi CO2 [Moles/Vol] 22.0 mmol/L Normal 21.0-32.0 [facility] Comment on above: Performed By: #### C MP ####[facility] Fohyzgsqfv[address] [place], [place] [id number]. Airam Tripathi Creatinine [Mass/Vol] 1.20 mg/dL Critically high 0.55-1.02 [facility] Comment on above: Performed By: #### C MP ####[facility] Guiegqqhgc8856 [place] [address]Dr. Airam Tripathi EGFR-AF [place] 56 mL/min/1.73m2 Critically low >=60 [facility] Comment on above: Performed By: #### C MP ####[facility] Epatimxohs7290 [place] [address]Dr. Airam Deuce EGFR-NON AF [place] 46 mL/min/1.73m2 Critically low >=60 [facility] Comment on above: Performed By: #### C MP ####[facility] Lsxhucqgyv4860 [place] [address]Dr. Selenaneil Deuce Globulin (S) [Mass/Vol] 3.2 g/dL Normal [facility] Comment on above: Performed By: #### C MP ####[facility] Kuurkpkwgg6866[address] [place], [place] [address]Dr. Airam Deuce Glucose [Mass/Vol] 98 mg/dL Normal 74-106 [facility] Comment on above: Performed By: #### C MP ####[facility] Kooatqfwfb2427[address] [place], [place] [address]Dr. Airam Deuce Potassium [Moles/Vol] 4.3 mmol/L Normal 3.5-5.1 [facility] Comment on above: Performed By: #### C MP ####[facility] Avxrnodiix318[address] [place], [place] [address]Dr. Selenaneil Tripathi Protein [Mass/Vol] 6.8 g/dL Normal 6.4-8.2 [facility] Comment on above: Performed By: #### C MP ####[facility] Rbfgqmbrbb8[address] [place], [place] [address]Dr. Airam Tripathi Sodium [Moles/Vol] 135 mmol/L Critically low 136-145 [facility] Comment on above: Performed By: #### C MP ####[facility] Vhfcaggcig13[address] [place], [place] [address]Dr. Airam Tripathi Urea nitrogen [Mass/Vol] 33.0 mg/dL Critically high 7.0-18.0 [facility] Comment on above: Performed By: #### C MP ####[facility] Pfetlmwghj8424 [place] [address]Dr. Airam Tripathi Urea nitrogen/Creatinine [Mass ratio] 27.5 mg/mg Normal [facility] Comment on above: Performed By: #### C MP ####[facility] Lkbkzbjuie[address] [place], [place] [address]Dr. Airam Tripathi OSMOLALITYon 02-07-2022 Osmolality [Osmolality] 299 mosm/kg Critically high 275-295 [facility] Comment on above: Performed By: #### O SMO ####[facility] Vldwfeilyg[address] [place], [place] [address]Dr. Airam Tripathi CBC AUTO DIFFon 02-03-2022 BASO # 0.0 103/ul Normal 0.0-0.1 [facility] Comment on above: Performed By: #### C BC ####[facility] Ibqitpbtxn[address] [place], [place] [address]Dr. Airam Tripathi Basophils/100 WBC (Bld) 0.4 % Normal 0.2-2.0 [facility] Comment on above: Performed By: #### C BC ####[facility] Dfmpovqalp027[address] [place], [place] [address]Dr. Airam Tripathi EO # 0.3 103/ul Normal 0.0-0.7 [facility] Comment on above: Performed By: #### C BC ####[facility] Mpqsqhfsch6067[address] [place], [place] [address]Dr. Airam Tripathi Eosinophils/100 WBC (Bld) 3.6 % Normal 0.9-7.0 [facility] Comment on above: Performed By: #### C BC ####[facility] Vnheoscklx09[address] [place], [place] [address]Dr. Airam Tripathi Erythrocyte distribution width (RBC) [Ratio] 13.2 % Normal 11.0-15.0 [facility] Comment on above: Performed By: #### C BC ####[facility] [address] [place] [address]Dr. Airam Tripathi Hematocrit (Bld) [Volume fraction] 32.0 % Critically low 36.0-48.0 [facility] Comment on above: Performed By: #### C BC ####[facility] [address]ukrpwcic[address] [place] [address]Dr. Selenaneil Tripathi Hemoglobin (Bld) [Mass/Vol] 9.8 g/dL Critically low 12.0-16.0 [facility] Comment on above: Performed By: #### C BC ####[facility] Fihbdcmloq7[address] [place], [place] [address]Dr. Airam Tripathi IG # 0.03 10e3/ul Normal 0.00-0.03 [facility] Comment on above: Performed By: #### C BC ####[facility] Mgfroyedfd927[address] [place], [place] [address]Dr. Airam Tripathi IG % 0.4 % Normal 0.0-0.5 [facility] Comment on above: Performed By: #### C BC ####[facility] Gaairqeysw534[address] [place], [place] [address]Dr. Airam Tripathi LYMPH # 1.7 103/ul Normal 1.2-3.8 [facility] Comment on above: Performed By: #### C BC ####[facility] Okrrmxtapy56[address] [place], [place] [address]Dr. Airam Tripathi Lymphocytes/100 WBC (Bld) 24.8 % Normal 20.5-60.0 [facility] Comment on above: Performed By: #### C BC ####[facility] Dnyyenqqfe020[address] [place], [place] [address]Dr. Airam Tripathi MANUAL DIFF REQ NO Normal [facility] Comment on above: Performed By: #### C BC ####[facility] Koxkvgezix0866[address] [place], [place] [address]Dr. Airam Tripathi MCH (RBC) [Entitic mass] 29.6 pg Normal 26.7-34.0 [facility] Comment on above: Performed By: #### C BC ####[facility] [address]msl5[address] [place] [phone]. Airam Tripathi MCHC (RBC) [Mass/Vol] 30.6 g/dL Normal 29.9-35.2 [facility] Comment on above: Performed By: #### C BC ####[facility] Oouosjdijc7082 [place] [phone]. Airam Tripathi MCV (RBC) [Entitic vol] 96.7 fL Normal 81.0-99.0 [facility] Comment on above: Performed By: #### C BC ####[facility] Zxwafibxtt[address] [place] [phone]. Airam Tripathi MONO # 0.4 103/ul Normal 0.3-0.8 [facility] Comment on above: Performed By: #### C BC ####[facility] Brovvxaodk8517[address] [place], [place] [address]Dr. Airam Deuce Monocytes/100 WBC (Bld) 6.3 % Normal 1.7-12.0 [facility] Comment on above: Performed By: #### C BC ####[facility] Uasnkqrwqg[address] [place], [place] [id number]. Airam Tripathi NEUT # 4.5 103/ul Normal 1.4-6.5 [facility] Comment on above: Performed By: #### C BC ####[facility] Psuxfwotrs11[address] [place], [place] [id number]. Airam Tripathi Neutrophils/100 WBC (Bld) 64.5 % Normal 43.0-75.0 [facility] Comment on above: Performed By: #### C BC ####[facility] Dqkmdeblgm8195 [place] [phone]. Airam Tripathi Platelet mean volume (Bld) [Entitic vol] 9.3 fL Critically low 9.5-13.5 [facility] Comment on above: Performed By: #### C BC ####[facility] Qwsnyexvqn13[address] [place], [place] [address]Dr. Airam Deuce PLT 243 103/ul Normal 150-450 [facility] Comment on above: Performed By: #### C BC ####[facility] Jwsrqcigiw3142 [place] [phone]. Airam Tripathi RBC 3.31 106/ul Critically low 4.20-5.40 [facility] Comment on above: Performed By: #### C BC ####[facility] Rbnbebefhl1010 [place] [address]Dr. Airam Tripathi WBC 7.0 103/ul Normal 4.0-11.0 [facility] Comment on above: Performed By: #### C BC ####[facility] Gqdbmeydyy3894 [place] [address]Dr. Airam Tripathi PROF 14(COMP METB)on 022 Albumin [Mass/Vol] 3.3 g/dL Critically low 3.4-5.0 [facility] Comment on above: Performed By: #### C MP ####[facility] Zrnzbdzauj5718 [place] [address]Dr. Airam Tripathi Albumin/Globulin [Mass ratio] 1.1 {ratio} Normal [facility] Comment on above: Performed By: #### C MP ####[facility] Lgoxcusofx679[address] [place], [place] [address]Dr. Airam Tripathi ALP [Catalytic activity/Vol] 126 U/L Critically high 46-116 [facility] Comment on above: Performed By: #### C MP ####[facility] Yvbpfmvieq4925 [place] [address]Dr. Airam Tripathi ALT [Catalytic activity/Vol] 21 U/L Normal 14-59 [facility] Comment on above: Performed By: #### C MP ####[facility] Oqyofxklcb2226[address] [place], [place] [address]Dr. Airam Tripathi Anion gap [Moles/Vol] 11.8 mmol/L Normal [facility] Comment on above: Performed By: #### C MP ####[facility] Yrohzruysw0568[address] [place], [place] [address]Dr. Airam Tripathi AST [Catalytic activity/Vol] 22 U/L Normal 15-37 [facility] Comment on above: Performed By: #### C MP ####[facility] Kmroycbvjs8608 [place] [address]Dr. Airam Tripathi Bilirubin [Mass/Vol] 0.3 mg/dL Normal 0.2-1.0 [facility] Comment on above: Performed By: #### C MP ####[facility] Yhgxxycsdj0634[address] [place], [place] [address]Dr. Airam Tripathi Calcium [Mass/Vol] 8.7 mg/dL Normal 8.5-10.1 [facility] Comment on above: Performed By: #### C MP ####[facility] Cyennqjclh20[address] [place], [place] [address]Dr. Airam Tripathi Chloride [Moles/Vol] 102 mmol/L Normal 98-107 [facility] Comment on above: Performed By: #### C MP ####[facility] Zbemtfsfwl6[address] [place], [place] [address]Dr. Airam Tripathi CO2 [Moles/Vol] 25.5 mmol/L Normal 21.0-32.0 [facility] Comment on above: Performed By: #### C MP ####[facility] Ejahcouumy576423 [address] [place], [place] [address]Dr. Airma Tripathi Creatinine [Mass/Vol] 1.43 mg/dL Critically high 0.55-1.02 [facility] Comment on above: Performed By: #### C MP ####[facility] Alhsjiyqpq585[address] [place], [place] [address]Dr. Airam Tripathi EGFR-AF [place] 46 mL/min/1.73m2 Critically low >=60 [facility] Comment on above: Performed By: #### C MP ####[facility] Kupdnqnhip9507[address] [place], [place] [address]Dr. Airam Tripathi EGFR-NON AF [place] 38 mL/min/1.73m2 Critically low >=60 [facility] Comment on above: Performed By: #### C MP ####[facility] Vaxhvojvck0260[address] [place], [place] [address]Dr. Airam Tripathi Globulin (S) [Mass/Vol] 2.9 g/dL Normal [facility] Comment on above: Performed By: #### C MP ####[facility] Msqfoxaczs4263 [place] [address]Dr. Airam Tripathi Glucose [Mass/Vol] 83 mg/dL Normal 74-106 [facility] Comment on above: Performed By: #### C MP ####[facility] Szsxsezdvw3625[address] [place], [place] [address]Dr. Airam Tripathi Potassium [Moles/Vol] 4.3 mmol/L Normal 3.5-5.1 [facility] Comment on above: Performed By: #### C MP ####[facility] Cpkbomznua447[address] [place], [place] [address]Dr. Airam Tripathi Protein [Mass/Vol] 6.2 g/dL Critically low 6.4-8.2 [facility] Comment on above: Performed By: #### C MP ####[facility] Ltqksxemnp0980[address] [place], [place] [address]Dr. Airam Tripathi Sodium [Moles/Vol] 135 mmol/L Critically low 136-145 [facility] Comment on above: Performed By: #### C MP ####[facility] Cmfafkuame986[address] [place], [place] [address]Dr. Airam Tripathi Urea nitrogen [Mass/Vol] 39.0 mg/dL Critically high 7.0-18.0 [facility] Comment on above: Performed By: #### C MP ####[facility] Uhzbkduwyb1267[address] [place], [place] [address]Dr. Airam Tripathi Urea nitrogen/Creatinine [Mass ratio] 27.3 mg/mg Normal [facility] Comment on above: Performed By: #### C MP ####[facility] Zrvkgoumuv3194[address] [place], [place] [address]Dr. Airam Deuce OSMOLALITYon 02-02-2022 Osmolality [Osmolality] 292 mosm/kg Normal 275-295 [facility] Comment on above: Performed By: #### O SMO ####[facility] Durgedldza[address] [place], [place] [address]Dr. Airam Tripathi CBC AUTO DIFFon 01-27-2022 BASO # 0.0 103/ul Normal 0.0-0.1 [facility] Comment on above: Performed By: #### C BC ####[facility] [address]uxffqrnw6102 [place] [phone]. Airam Tripathi Basophils/100 WBC (Bld) 0.4 % Normal 0.2-2.0 [facility] Comment on above: Performed By: #### C BC ####[facility] Bqcjlgvavx[address] [place], [place] [address]Dr. Airam Tripathi EO # 0.2 103/ul Normal 0.0-0.7 [facility] Comment on above: Performed By: #### C BC ####[facility] Emrilcibjq5412[address] [place], [place] [address]Dr. Airam Tripathi Eosinophils/100 WBC (Bld) 3.4 % Normal 0.9-7.0 [facility] Comment on above: Performed By: #### C BC ####[facility] Adozwyatlp[address] [place], [place] [address]Dr. Airam Tripathi Erythrocyte distribution width (RBC) [Ratio] 13.1 % Normal 11.0-15.0 [facility] Comment on above: Performed By: #### C BC ####[facility] Nmkrfxtakg4816[address] [place], [place] [address]Dr. Airam Tripathi Hematocrit (Bld) [Volume fraction] 31.6 % Critically low 36.0-48.0 [facility] Comment on above: Performed By: #### C BC ####[facility] Wtjzoauufb104[address] [place], [place] [id number]. Airam Tripathi Hemoglobin (Bld) [Mass/Vol] 9.9 g/dL Critically low 12.0-16.0 [facility] Comment on above: Performed By: #### C BC ####[facility] Qpilzpglvg[address] [place], [place] [address]Dr. Airam Tripathi IG # 0.02 10e3/ul Normal 0.00-0.03 [facility] Comment on above: Performed By: #### C BC ####[facility] Vhmymcizqt6427[address] [place], [place] [address]Dr. Airam Tripathi IG % 0.4 % Normal 0.0-0.5 [facility] Comment on above: Performed By: #### C BC ####[facility] Ma[address]jagpe[address] [place] [phone]. Airam Tripathi LYMPH # 1.0 103/ul Critically low 1.2-3.8 [facility] Comment on above: Performed By: #### C BC ####[facility] Mfquiqestf8890 [place] [phone]. Airam Deuce Lymphocytes/100 WBC (Bld) 17.4 % Critically low 20.5-60.0 [facility] Comment on above: Performed By: #### C BC ####[facility] Creqvlykoo6085 [place] [address]Dr. Selenaneil Tripathi MANUAL DIFF REQ NO Normal [facility] Comment on above: Performed By: #### C BC ####[facility] Fylmkggsre2404[address] [place], [place] [address]Dr. Airam Deuce MCH (RBC) [Entitic mass] 30.1 pg Normal 26.7-34.0 [facility] Comment on above: Performed By: #### C BC ####[facility] Ijcboqezll5853 [place] [address]Dr. Airam Tripathi MCHC (RBC) [Mass/Vol] 31.3 g/dL Normal 29.9-35.2 [facility] Comment on above: Performed By: #### C BC ####[facility] Kznssnicmm1260 [place] [address]Dr. Airam Deuce MCV (RBC) [Entitic vol] 96.0 fL Normal 81.0-99.0 [facility] Comment on above: Performed By: #### C BC ####[facility] Pcnzpxjsqi4745 [place] [address]Dr. Airam Tripathi MONO # 0.5 103/ul Normal 0.3-0.8 [facility] Comment on above: Performed By: #### C BC ####[facility] Efanmujhii53[address] [place], [place] [address]Dr. Selenaneil Tripathi Monocytes/100 WBC (Bld) 8.6 % Normal 1.7-12.0 [facility] Comment on above: Performed By: #### C BC ####[facility] Fobsrnttoh4031 [place] [phone]. Airam Tripathi NEUT # 3.9 103/ul Normal 1.4-6.5 [facility] Comment on above: Performed By: #### C BC ####[facility] Uwosruikcf1846 [place] [phone]. Airam Tripathi Neutrophils/100 WBC (Bld) 69.8 % Normal 43.0-75.0 [facility] Comment on above: Performed By: #### C BC ####[facility] Uptijyxvcp0430 [place] [phone]. Airam Tripathi Platelet mean volume (Bld) [Entitic vol] 9.6 fL Normal 9.5-13.5 [facility] Comment on above: Performed By: #### C BC ####[facility] Ryflxdnrwk1937 [place] [address]Dr. Airam Tripathi PLT 228 103/ul Normal 150-450 [facility] Comment on above: Performed By: #### C BC ####[facility] Wuyswlcgeq07[address] [place], [place] [address]Dr. Airam Tripathi RBC 3.29 106/ul Critically low 4.20-5.40 [facility] Comment on above: Performed By: #### C BC ####[facility] Ukfnqvhyoq7[address] [place], [place] [address]Dr. Airam Tripathi WBC 5.6 103/ul Normal 4.0-11.0 [facility] Comment on above: Performed By: #### C BC ####[facility] Yrazsvbriz25[address] [place], [place] [address]Dr. Airam Tripathi PROF 14(COMP METB)on 022 Albumin [Mass/Vol] 3.1 g/dL Critically low 3.4-5.0 [facility] Comment on above: Performed By: #### C MP ####[facility] Dmwmhrzwly5979 [place] [address]Dr. Selenaneil Deuce Albumin/Globulin [Mass ratio] 1.0 {ratio} Normal [facility] Comment on above: Performed By: #### C MP ####[facility] Bdsxxythlc8286 [place] [phone]. Airam Tripathi ALP [Catalytic activity/Vol] 131 U/L Critically high 46-116 [facility] Comment on above: Performed By: #### C MP ####[facility] Qqfagxijiw3669 [place] [phone]. Airam Tripathi ALT [Catalytic activity/Vol] 19 U/L Normal 14-59 [facility] Comment on above: Performed By: #### C MP ####[facility] Qunwswlgbz0519 [place] [address]Dr. Airam Tripathi Anion gap [Moles/Vol] 12.9 mmol/L Normal [facility] Comment on above: Performed By: #### C MP ####[facility] Syqtxxkzlt2[address] [place], [place] [address]Dr. Airam Tripathi AST [Catalytic activity/Vol] 21 U/L Normal 15-37 [facility] Comment on above: Performed By: #### C MP ####[facility] Lwreaxxsvz3939[address] [place], [place] [address]Dr. Airam Tripathi Bilirubin [Mass/Vol] 0.2 mg/dL Normal 0.2-1.0 [facility] Comment on above: Performed By: #### C MP ####[facility] Jmroprcjit85[address] [place], [place] [address]Dr. Airam Tripathi Calcium [Mass/Vol] 8.4 mg/dL Critically low 8.5-10.1 [facility] Comment on above: Performed By: #### C MP ####[facility] Aqdhukppzi1555 [place] [address]Dr. Airam Tripathi Chloride [Moles/Vol] 103 mmol/L Normal 98-107 [facility] Comment on above: Performed By: #### C MP ####[facility] Jpgnffmohr5969 [place] [address]Dr. Airam Tripathi CO2 [Moles/Vol] 23.7 mmol/L Normal 21.0-32.0 [facility] Comment on above: Performed By: #### C MP ####[facility] Pghtbdifos2498 [place] [phone]. Airam Tripathi Creatinine [Mass/Vol] 1.37 mg/dL Critically high 0.55-1.02 [facility] Comment on above: Performed By: #### C MP ####[facility] Lmpigfsodd4131 [place] [phone]. Airam Tripathi EGFR-AF [place] 48 mL/min/1.73m2 Critically low >=60 [facility] Comment on above: Performed By: #### C MP ####[facility] Rpxgxzprcd5748 [place] [phone]. Airam Tripathi EGFR-NON AF [place] 39 mL/min/1.73m2 Critically low >=60 [facility] Comment on above: Performed By: #### C MP ####[facility] Tyqxosfghd7563 [place] [phone]. Airam Tripathi Globulin (S) [Mass/Vol] 3.1 g/dL Normal [facility] Comment on above: Performed By: #### C MP ####[facility] Hwiaqacluv0643 [place] [phone]. Airam Tripathi Glucose [Mass/Vol] 88 mg/dL Normal 74-106 [facility] Comment on above: Performed By: #### C MP ####[facility] Jrcemqxzah6103 [place] [phone]. Airam Tripathi Potassium [Moles/Vol] 4.6 mmol/L Normal 3.5-5.1 [facility] Comment on above: Performed By: #### C MP ####[facility] Dukqjgigta4235 [place] [phone]. Airam Tripathi Protein [Mass/Vol] 6.2 g/dL Critically low 6.4-8.2 [facility] Comment on above: Performed By: #### C MP ####[facility] Mluoeymlvw6194 [place] [phone]. Airam Tripathi Sodium [Moles/Vol] 135 mmol/L Critically low 136-145 [facility] Comment on above: Performed By: #### C MP ####[facility] Ryvxkrhkzv367[address] [place], [place] [address]Dr. Airam Tripathi Urea nitrogen [Mass/Vol] 34.0 mg/dL Critically high 7.0-18.0 [facility] Comment on above: Performed By: #### C MP ####[facility] Ddpwiidbcb4137 [place] [address]Dr. Airam Tripathi Urea nitrogen/Creatinine [Mass ratio] 24.8 mg/mg Normal [facility] Comment on above: Performed By: #### C MP ####[facility] C[address]hvtqbej10[address] [place], [place] [address]Dr. Airam Tripathi OSMOLALITYon 01-21-2022 Osmolality [Osmolality] 276 mosm/kg Normal 275-295 [facility] Comment on above: Performed By: #### O SMO ####[facility] Rsygttjvzk9[address] [place], [place] [address]Dr. Airam Tripathi MRI CSPINE WO CONon 01-21-20 MRI CSPINE WO CON Normal [facility] CBC AUTO DIFFon 01-19-2022 BASO # 0.0 103/ul Normal 0.0-0.1 [facility] Comment on above: Performed By: #### C BC ####[facility] Xnslugugnv2418[address] [place], [place] [address]Dr. Airam Deuce Basophils/100 WBC (Bld) 0.2 % Normal 0.2-2.0 [facility] Comment on above: Performed By: #### C BC ####[facility] Tzjxbthigv8[address] [place], [place] [address]Dr. Airam Deuce EO # 0.2 103/ul Normal 0.0-0.7 [facility] Comment on above: Performed By: #### C BC ####[facility] Whlaxktdto2030[address] [place], [place] [address]Dr. Selenaneil Deuce Eosinophils/100 WBC (Bld) 2.1 % Normal 0.9-7.0 [facility] Comment on above: Performed By: #### C BC ####[facility] Pmftliiwga037[address] [place], [place] [address]Dr. Selenaneil Deuce Erythrocyte distribution width (RBC) [Ratio] 12.7 % Normal 11.0-15.0 [facility] Comment on above: Performed By: #### C BC ####[facility] Rswainyimy5503 [place] [address]Dr. Airam Tripathi Hematocrit (Bld) [Volume fraction] 32.2 % Critically low 36.0-48.0 [facility] Comment on above: Performed By: #### C BC ####[facility] Sehudvvere7729[address] [place], [place] [address]Dr. Selenaneil Tripathi Hemoglobin (Bld) [Mass/Vol] 10.4 g/dL Critically low 12.0-16.0 [facility] Comment on above: Performed By: #### C BC ####[facility] Lpchftlcha12[address] [place], [place] [address]Dr. Airam Tripathi IG # 0.03 10e3/ul Normal 0.00-0.03 [facility] Comment on above: Performed By: #### C BC ####[facility] Obnserjrqu7857[address] [place], [place] [address]Dr. Selenaneil Tripathi IG % 0.3 % Normal 0.0-0.5 [facility] Comment on above: Performed By: #### C BC ####[facility] Hbnaynivkz1422[address] [place], [place] [address]DrKianna Airam Tripathi LYMPH # 1.4 103/ul Normal 1.2-3.8 [facility] Comment on above: Performed By: #### C BC ####[facility] Ebqkyrvyvp7266[address] [place], [place] [address]Dr. Selenaneil Tripathi Lymphocytes/100 WBC (Bld) 16.0 % Critically low 20.5-60.0 [facility] Comment on above: Performed By: #### C BC ####[facility] Dwuptopknd2455[address] [place], [place] [address]DrKianna Tripathi MANUAL DIFF REQ NO Normal [facility] Comment on above: Performed By: #### C BC ####[facility] Nkldzkbaho716[address] [place], [place] [address]DrKianna Tripathi MCH (RBC) [Entitic mass] 30.0 pg Normal 26.7-34.0 [facility] Comment on above: Performed By: #### C BC ####[facility] Zwaglviajd8479 [place] [address]DrKianna Tripathi MCHC (RBC) [Mass/Vol] 32.3 g/dL Normal 29.9-35.2 [facility] Comment on above: Performed By: #### C BC ####[facility] Krntdinnwg35[address] [place], [place] [address]DrKianna Tripathi MCV (RBC) [Entitic vol] 92.8 fL Normal 81.0-99.0 [facility] Comment on above: Performed By: #### C BC ####[facility] Emiwxczohu1645[address] [place], [place] [address]DrKianna Tripathi MONO # 0.4 103/ul Normal 0.3-0.8 [facility] Comment on above: Performed By: #### C BC ####[facility] Ceqgtdcxug6576[address] [place], [place] [address]DrKianna Tripathi Monocytes/100 WBC (Bld) 4.9 % Normal 1.7-12.0 [facility] Comment on above: Performed By: #### C BC ####[facility] Uugtbbccto4[address] [place], [place] [address]DrKianna Tripathi NEUT # 6.6 103/ul Critically high 1.4-6.5 [facility] Comment on above: Performed By: #### C BC ####[facility] Lmuudnxvcg4467[address] [place], [place] [address]DrKianna Tripathi Neutrophils/100 WBC (Bld) 76.5 % Critically high 43.0-75.0 [facility] Comment on above: Performed By: #### C BC ####[facility] Caelprikbi8[address] [place], [place] [address]DrKianna Tripathi Platelet mean volume (Bld) [Entitic vol] 9.8 fL Normal 9.5-13.5 [facility] Comment on above: Performed By: #### C BC ####[facility] Qsmtsfbebf05[address] [place], [place] [address]Dr. Airam Tripathi PLT 262 103/ul Normal 150-450 [facility] Comment on above: Performed By: #### C BC ####[facility] Rmuxhrlpav5216 [place] [address]Dr. Selenaneil Deuce RBC 3.47 106/ul Critically low 4.20-5.40 [facility] Comment on above: Performed By: #### C BC ####[facility] Pguxrgvkhg4407 [place] [address]Dr. Airam Tripathi WBC 8.7 103/ul Normal 4.0-11.0 [facility] Comment on above: Performed By: #### C BC ####[facility] Ovqbmzydup0014 [place] [address]DrKianna Tripathi PROF 14(COMP METB)on 022 Albumin [Mass/Vol] 3.3 g/dL Critically low 3.4-5.0 [facility] Comment on above: Performed By: #### C MP ####[facility] Xhsbanwqsq53[address] [place], [place] [address]Dr. Airam Tripathi Albumin/Globulin [Mass ratio] 1.1 {ratio} Normal [facility] Comment on above: Performed By: #### C MP ####[facility] Klzzdjyvsy0101[address] [place], [place] [address]Dr. Airam Tripathi ALP [Catalytic activity/Vol] 114 U/L Normal 46-116 [facility] Comment on above: Performed By: #### C MP ####[facility] Auqsjzlqcx5805 [place] [address]Dr. Airam Tripathi ALT [Catalytic activity/Vol] 20 U/L Normal 14-59 [facility] Comment on above: Performed By: #### C MP ####[facility] Lycngesuyl1626 [place] [address]Dr. Airam Tripathi Anion gap [Moles/Vol] 14.7 mmol/L Normal [facility] Comment on above: Performed By: #### C MP ####[facility] Xwijylystw39[address] [place], [place] [address]Dr. Airam Tripathi AST [Catalytic activity/Vol] 22 U/L Normal 15-37 [facility] Comment on above: Performed By: #### C MP ####[facility] Cjuovomlsp8896[address] [place], [place] [address]Dr. Airam Tripathi Bilirubin [Mass/Vol] 0.3 mg/dL Normal 0.2-1.0 [facility] Comment on above: Performed By: #### C MP ####[facility] Ysxcsfurhb5875[address] [place], [place] [address]Dr. Airam Tripathi Calcium [Mass/Vol] 8.8 mg/dL Normal 8.5-10.1 [facility] Comment on above: Performed By: #### C MP ####[facility] Rjvjgkkszz7[address] [place], [place] [address]Dr. Airam Tripathi Chloride [Moles/Vol] 97 mmol/L Critically low 98-107 [facility] Comment on above: Performed By: #### C MP ####[facility] Sqhnszwygi9975[address] [place], [place] [address]Dr. Airam Tripathi CO2 [Moles/Vol] 24.5 mmol/L Normal 21.0-32.0 [facility] Comment on above: Performed By: #### C MP ####[facility] Usqftqvifz486[address] [place], [place] [address]Dr. Airam Tripathi Creatinine [Mass/Vol] 1.28 mg/dL Critically high 0.55-1.02 [facility] Comment on above: Performed By: #### C MP ####[facility] Mhekubudxw4447[address] [place], [place] [address]Dr. Airam Tripathi EGFR-AF [place] 52 mL/min/1.73m2 Critically low >=60 [facility] Comment on above: Performed By: #### C MP ####[facility] Yiqyvqkddy423[address] [place], [place] [address]Dr. Airam Tripathi EGFR-NON AF [place] 43 mL/min/1.73m2 Critically low >=60 [facility] Comment on above: Performed By: #### C MP ####[facility] Dkytnbsmaf8665[address] [place], [place] [address]Dr. Airam Tripathi Globulin (S) [Mass/Vol] 3.1 g/dL Normal [facility] Comment on above: Performed By: #### C MP ####[facility] Knwktbuvao2935 [place] [address]Dr. Airam Tripathi Glucose [Mass/Vol] 87 mg/dL Normal 74-106 [facility] Comment on above: Performed By: #### C MP ####[facility] Mhtjxilmkl8604[address] [place], [place] [address]Dr. Airam Deuce Potassium [Moles/Vol] 4.2 mmol/L Normal 3.5-5.1 [facility] Comment on above: Performed By: #### C MP ####[facility] Mpapnpmxlr0399[address] [place], [place] [address]Dr. Airam Tirpathi Protein [Mass/Vol] 6.4 g/dL Normal 6.4-8.2 [facility] Comment on above: Performed By: #### C MP ####[facility] Ewgmjdeiut2778[address] [place], [place] [address]Dr. Selenaneil Deuce Sodium [Moles/Vol] 132 mmol/L Critically low 136-145 [facility] Comment on above: Performed By: #### C MP ####[facility] Pvgkjeukmd3216[address] [place], [place] [address]Dr. Airam Deuce Urea nitrogen [Mass/Vol] 36.0 mg/dL Critically high 7.0-18.0 [facility] Comment on above: Performed By: #### C MP ####[facility] Eghlpjvwdl2747[address] [place], [place] [address]Dr. Airam Tripathi Urea nitrogen/Creatinine [Mass ratio] 28.1 mg/mg Normal [facility] Comment on above: Performed By: #### C MP ####[facility] Uzrwkhadkj6118[address] [place], [place] [address]Dr. Airam Tripathi XR DEXA BONE DENSITYon 01-19 XR DEXA BONE DENSITY Normal [facility] OSMOLALITYon 01-13-2022 Osmolality [Osmolality] 277 mosm/kg Normal 275-295 [facility] Comment on above: Performed By: #### O SMO ####[facility] Hmhrdiqusi515[address] [place], [place] [address]Dr. Airam Tripathi CBC AUTO DIFFon 01-11-2022 BASO # 0.0 103/ul Normal 0.0-0.1 [facility] Comment on above: Performed By: #### C BC ####[facility] Nnoasjhblj0696[address] [place], [place] [address]Dr. Airam Deuce Basophils/100 WBC (Bld) 0.5 % Normal 0.2-2.0 [facility] Comment on above: Performed By: #### C BC ####[facility] Noswfvdbnu416623 [address] [place], [place] [address]Dr. Airam Deuce EO # 0.2 103/ul Normal 0.0-0.7 [facility] Comment on above: Performed By: #### C BC ####[facility] Yvbmdvbeev197423 [address] [place], [place] [address]Dr. Selenaneil Tripathi Eosinophils/100 WBC (Bld) 3.1 % Normal 0.9-7.0 [facility] Comment on above: Performed By: #### C BC ####[facility] Edawwousgp464[address] [place], [place] [address]Dr. Airam Tripathi Erythrocyte distribution width (RBC) [Ratio] 12.5 % Normal 11.0-15.0 [facility] Comment on above: Performed By: #### C BC ####[facility] Oaubdmfxhi3310[address] [place], [place] [address]Dr. Airam Tripathi Hematocrit (Bld) [Volume fraction] 34.4 % Critically low 36.0-48.0 [facility] Comment on above: Performed By: #### C BC ####[facility] Ubsgcajtbp3814[address] [place], [place] [address]Dr. Selenaneil Tripathi Hemoglobin (Bld) [Mass/Vol] 11.0 g/dL Critically low 12.0-16.0 [facility] Comment on above: Performed By: #### C BC ####[facility] Frbybxktkl675723 [address] [place], [place] [address]Dr. Airam Tripathi IG # 0.03 10e3/ul Normal 0.00-0.03 [facility] Comment on above: Performed By: #### C BC ####[facility] Zbtpxopuop6687 [place] [id number]. Airam Tripathi IG % 0.5 % Normal 0.0-0.5 [facility] Comment on above: Performed By: #### C BC ####[facility] Ejiolximfg3119 [place] [address]Dr. Airam Tripathi LYMPH # 1.6 103/ul Normal 1.2-3.8 [facility] Comment on above: Performed By: #### C BC ####[facility] Uyqvpxwgis7867 [place] [phone]. Airam Deuce Lymphocytes/100 WBC (Bld) 28.0 % Normal 20.5-60.0 [facility] Comment on above: Performed By: #### C BC ####[facility] Sauoisdwcx2749[address] [place], [place] [address]Dr. Selenaneil Tripathi MANUAL DIFF REQ NO Normal [facility] Comment on above: Performed By: #### C BC ####[facility] Cdcusssdnx618[address] [place], [place] [address]Dr. Airam Tripathi MCH (RBC) [Entitic mass] 30.1 pg Normal 26.7-34.0 [facility] Comment on above: Performed By: #### C BC ####[facility] Qskvwlczxh4722[address] [place], [place] [address]Dr. Airam Tripathi MCHC (RBC) [Mass/Vol] 32.0 g/dL Normal 29.9-35.2 [facility] Comment on above: Performed By: #### C BC ####[facility] Llvtidknbg[address] [place], [place] [id number]. Airam Tripathi MCV (RBC) [Entitic vol] 94.0 fL Normal 81.0-99.0 [facility] Comment on above: Performed By: #### C BC ####[facility] Rpbpnmtrrh5754[address] [place], [place] [address]Dr. Airam Deuce MONO # 0.4 103/ul Normal 0.3-0.8 [facility] Comment on above: Performed By: #### C BC ####[facility] Nwulqxgsnd3972 [place] [phone]. Airam Tripathi Monocytes/100 WBC (Bld) 7.5 % Normal 1.7-12.0 [facility] Comment on above: Performed By: #### C BC ####[facility] Gxeiztsrpp1094 [place] [phone]. Airam Tripathi NEUT # 3.5 103/ul Normal 1.4-6.5 [facility] Comment on above: Performed By: #### C BC ####[facility] Akooahwsre8690 [place] [address]Dr. Airam Tripathi Neutrophils/100 WBC (Bld) 60.4 % Normal 43.0-75.0 [facility] Comment on above: Performed By: #### C BC ####[facility] Dqwxvelnbh9899 [place] [address]Dr. Airam Tripathi Platelet mean volume (Bld) [Entitic vol] 10.0 fL Normal 9.5-13.5 [facility] Comment on above: Performed By: #### C BC ####[facility] Amcjlikeeb6755 [place] [address]Dr. Airam Tripathi PLT 300 103/ul Normal 150-450 [facility] Comment on above: Performed By: #### C BC ####[facility] Pthyryjeaa3655 [place] [phone]. Airam Tripathi RBC 3.66 106/ul Critically low 4.20-5.40 [facility] Comment on above: Performed By: #### C BC ####[facility] Jvfopaeuzl[address] [place], [place] [address]Dr. Airam Tripathi WBC 5.7 103/ul Normal 4.0-11.0 [facility] Comment on above: Performed By: #### C BC ####[facility] Fiubnalads3004[address] [place], [place] [address]Dr. Airam Tripathi PROF 14(COMP METB)on 022 Albumin [Mass/Vol] 3.3 g/dL Critically low 3.4-5.0 [facility] Comment on above: Performed By: #### C MP ####[facility] Grxpeuntrk9854 [place] [address]Dr. Selenaneil Deuce Albumin/Globulin [Mass ratio] 1.0 {ratio} Normal [facility] Comment on above: Performed By: #### C MP ####[facility] Okpgrhrkcj1556 [place] [address]Dr. Airam Tripathi ALP [Catalytic activity/Vol] 138 U/L Critically high 46-116 [facility] Comment on above: Performed By: #### C MP ####[facility] Rzmpjaqtyf9[address] [place], [place] [address]Dr. Airam Tripathi ALT [Catalytic activity/Vol] 25 U/L Normal 14-59 [facility] Comment on above: Performed By: #### C MP ####[facility] Rryxbosgqx8806[address] [place], [place] [address]Dr. Airam Tripathi Anion gap [Moles/Vol] 14.0 mmol/L Normal [facility] Comment on above: Performed By: #### C MP ####[facility] Vwybdmgjyw7376[address] [place], [place] [address]Dr. Airam Tripathi AST [Catalytic activity/Vol] 19 U/L Normal 15-37 [facility] Comment on above: Performed By: #### C MP ####[facility] Zmwszpfetl59[address] [place], [place] [address]Dr. Airam Tripathi Bilirubin [Mass/Vol] 0.3 mg/dL Normal 0.2-1.0 [facility] Comment on above: Performed By: #### C MP ####[facility] Fhtabqjffb310[address] [place], [place] [address]Dr. Airam Tripathi Calcium [Mass/Vol] 8.7 mg/dL Normal 8.5-10.1 [facility] Comment on above: Performed By: #### C MP ####[facility] Apyxzwofoo5294[address] [place], [place] [address]Dr. Airam Tripathi Chloride [Moles/Vol] 99 mmol/L Normal 98-107 [facility] Comment on above: Performed By: #### C MP ####[facility] Mjcvxnvirg8498 [place] [address]Dr. Airam Tripathi CO2 [Moles/Vol] 25.4 mmol/L Normal 21.0-32.0 [facility] Comment on above: Performed By: #### C MP ####[facility] Qtvfbnhaxy5222 [place] [address]Dr. Airam Tripathi Creatinine [Mass/Vol] 1.22 mg/dL Critically high 0.55-1.02 [facility] Comment on above: Performed By: #### C MP ####[facility] Vsbemxjsig5428 [place] [phone]. Airam Tripathi EGFR-AF [place] 55 mL/min/1.73m2 Critically low >=60 [facility] Comment on above: Performed By: #### C MP ####[facility] Qwqpfhusyp0411 [place] [address]Dr. Airam Tripathi EGFR-NON AF [place] 45 mL/min/1.73m2 Critically low >=60 [facility] Comment on above: Performed By: #### C MP ####[facility] Corjuadzos2994 [place] [address]Dr. Airam Tripathi Globulin (S) [Mass/Vol] 3.2 g/dL Normal [facility] Comment on above: Performed By: #### C MP ####[facility] Nhvbjccwtd3086 [place] [address]Dr. Airam Tripathi Glucose [Mass/Vol] 111 mg/dL Critically high 74-106 [facility] Comment on above: Performed By: #### C MP ####[facility] Kjxxhtmgts4481 [place] [address]Dr. Airam Tripathi Potassium [Moles/Vol] 4.4 mmol/L Normal 3.5-5.1 [facility] Comment on above: Performed By: #### C MP ####[facility] Giycpvmese1182 [place] [address]Dr. Airam Tripathi Protein [Mass/Vol] 6.5 g/dL Normal 6.4-8.2 [facility] Comment on above: Performed By: #### C MP ####[facility] Kcbdbnxfvc7798 [place], [place] [address]Uv. Airam Tripathi Sodium [Moles/Vol] 134 mmol/L Critically low 136-145 [facility] Comment on above: Performed By: #### C MP ####[facility] Gihdooljsg8778 [place], [place] [address]Zq. Airam Tripathi Urea nitrogen [Mass/Vol] 27.0 mg/dL Critically high 7.0-18.0 [facility] Comment on above: Performed By: #### C MP ####[facility] Tqgvgjoazi9372 [place], [place] [address]Uy. Airam Tripathi Urea nitrogen/Creatinine [Mass ratio] 22.1 mg/mg Normal [facility] Comment on above: Performed By: #### C MP ####[facility] Mjjvssaekd0302 [place], [place] [address]Fr. Airam Tripathi CT CERVICAL SPINE WITHOUT CO NTRASTon 01-10-2022 CT CERVICAL SPINE WITHOUT CONTRAST [facility] Department of Radiology [address] [place] [id number] Patient Name: MABEL MOSER : 1960 [...] achievable. Electronically signed: Ayleen Ny. Transcribed by: [email or web address], User Resident: Electronically Signed by: AYLEEN [place] @ 01/12/2022 12:32 PM Normal [facility] OSMOLALITYon 01-07-2022 Osmolality [Osmolality] 286 mosm/kg Normal 275-295 [facility] Comment on above: Performed By: #### O SMO ####[facility] Lzshicvofz7546 [place] [id number] Tripathi CBC AUTO DIFFon 01-06-2022 BASO # 0.0 103/ul Normal 0.0-0.1 [facility] Comment on above: Performed By: #### C BC ####[facility] Szcibxgbvm5335 [place] [address]Dr. Airam Tripathi Basophils/100 WBC (Bld) 0.3 % Normal 0.2-2.0 [facility] Comment on above: Performed By: #### C BC ####[facility] Epchcyyodk4[address] [place], [place] [address]Dr. Airam Tripathi EO # 0.2 103/ul Normal 0.0-0.7 [facility] Comment on above: Performed By: #### C BC ####[facility] Uzenxqspxz238[address] [place], [place] [address]Dr. Airam Tripathi Eosinophils/100 WBC (Bld) 4.1 % Normal 0.9-7.0 [facility] Comment on above: Performed By: #### C BC ####[facility] Hhlgznvssq7869[address] [place], [place] [address]Dr. Airam Tripathi Erythrocyte distribution width (RBC) [Ratio] 12.9 % Normal 11.0-15.0 [facility] Comment on above: Performed By: #### C BC ####[facility] Mzcbmjnkyg617[address] [place], [place] [address]Dr. Airam Tripathi Hematocrit (Bld) [Volume fraction] 34.2 % Critically low 36.0-48.0 [facility] Comment on above: Performed By: #### C BC ####[facility] Dehoozancd6397[address] [place], [place] [address]Dr. Airam Tripathi Hemoglobin (Bld) [Mass/Vol] 10.6 g/dL Critically low 12.0-16.0 [facility] Comment on above: Performed By: #### C BC ####[facility] Ikmezjsxhm9777[address] [place], [place] [address]Dr. Airam Tripathi IG # 0.03 10e3/ul Normal 0.00-0.03 [facility] Comment on above: Performed By: #### C BC ####[facility] Apnfjbscjl9879[address] [place], [place] [address]Dr. Airam Tripathi IG % 0.5 % Normal 0.0-0.5 [facility] Comment on above: Performed By: #### C BC ####[facility] Mnufjainir9577 [place] [address]DrKianna Tripathi LYMPH # 1.1 103/ul Critically low 1.2-3.8 [facility] Comment on above: Performed By: #### C BC ####[facility] Gqxqrzvjpo1479 [place] [address]DrKianna Tripathi Lymphocytes/100 WBC (Bld) 18.2 % Critically low 20.5-60.0 [facility] Comment on above: Performed By: #### C BC ####[facility] Utelikxmgb2067[address] [place], [place] [address]DrKianna Tripathi MANUAL DIFF REQ NO Normal [facility] Comment on above: Performed By: #### C BC ####[facility] Hfqalukusy6527[address] [place], [place] [address]DrKianna Tripathi MCH (RBC) [Entitic mass] 29.6 pg Normal 26.7-34.0 [facility] Comment on above: Performed By: #### C BC ####[facility] Tghwzaiqjl1407[address] [place], [place] [address]DrKianna Tripathi MCHC (RBC) [Mass/Vol] 31.0 g/dL Normal 29.9-35.2 [facility] Comment on above: Performed By: #### C BC ####[facility] Dgrbktjbkn2184[address] [place], [place] [address]DrKianna Tripathi MCV (RBC) [Entitic vol] 95.5 fL Normal 81.0-99.0 [facility] Comment on above: Performed By: #### C BC ####[facility] Juaanlupqq8586[address] [place], [place] [address]DrKianna Tripathi MONO # 0.5 103/ul Normal 0.3-0.8 [facility] Comment on above: Performed By: #### C BC ####[facility] Wtnskdarnj[address] [place], [place] [address]DrKianna Tripathi Monocytes/100 WBC (Bld) 8.5 % Normal 1.7-12.0 [facility] Comment on above: Performed By: #### C BC ####[facility] Txbwveqkup9784 [place] [address]Dr. Airam Tripathi NEUT # 4.0 103/ul Normal 1.4-6.5 [facility] Comment on above: Performed By: #### C BC ####[facility] Juqovgyepj0467 [place] [address]Dr. Airam Tripathi Neutrophils/100 WBC (Bld) 68.4 % Normal 43.0-75.0 [facility] Comment on above: Performed By: #### C BC ####[facility] Iujfiqzrnc5125[address] [place], [place] [address]Dr. Airam Tripathi Platelet mean volume (Bld) [Entitic vol] 10.1 fL Normal 9.5-13.5 [facility] Comment on above: Performed By: #### C BC ####[facility] Kodjdqujrw2379[address] [place], [place] [address]Dr. Airam Tripathi PLT 304 103/ul Normal 150-450 [facility] Comment on above: Performed By: #### C BC ####[facility] Uegywjkted969[address] [place], [place] [address]Dr. Airam Tripathi RBC 3.58 106/ul Critically low 4.20-5.40 [facility] Comment on above: Performed By: #### C BC ####[facility] Ofcajdlabz5810[address] [place], [place] [address]Dr. Airam Tripathi WBC 5.9 103/ul Normal 4.0-11.0 [facility] Comment on above: Performed By: #### C BC ####[facility] Ktotbtxyqn8057[address] [place], [place] [address]Dr. Airam Tripathi MG MAMM RT DIAG FUon 022 MG MAMM RT DIAG FU Normal [facility] PROF 14(COMP METB)on 022 Albumin [Mass/Vol] 3.1 g/dL Critically low 3.4-5.0 [facility] Comment on above: Performed By: #### C MP ####[facility] Zaolgmltqb1130 [place] [phone]. Airam Tripathi Albumin/Globulin [Mass ratio] 1.0 {ratio} Normal [facility] Comment on above: Performed By: #### C MP ####[facility] Dvvtdbyatb8841 [place] [phone]. Airam Tripathi ALP [Catalytic activity/Vol] 143 U/L Critically high 46-116 [facility] Comment on above: Performed By: #### C MP ####[facility] Jfqxszyqum9897 [place] [address]Dr. Airam Tripathi ALT [Catalytic activity/Vol] 23 U/L Normal 14-59 [facility] Comment on above: Performed By: #### C MP ####[facility] Zhtbcjsgtr0327[address] [place], [place] [address]Dr. Selenaneil Deuce Anion gap [Moles/Vol] 13.2 mmol/L Normal [facility] Comment on above: Performed By: #### C MP ####[facility] Jnflzdbycq3415[address] [place], [place] [address]Dr. Airam Deuce AST [Catalytic activity/Vol] 20 U/L Normal 15-37 [facility] Comment on above: Performed By: #### C MP ####[facility] Khghcobhmt128[address] [place], [place] [address]Dr. Airam Deuce Bilirubin [Mass/Vol] 0.3 mg/dL Normal 0.2-1.0 [facility] Comment on above: Performed By: #### C MP ####[facility] Hebfsfibnk7647[address] [place], [place] [address]Dr. Airam Deuce Calcium [Mass/Vol] 8.2 mg/dL Critically low 8.5-10.1 [facility] Comment on above: Performed By: #### C MP ####[facility] Mwnqmqbera4087[address] [place], [place] [address]Dr. Airam Tripathi Chloride [Moles/Vol] 100 mmol/L Normal 98-107 [facility] Comment on above: Performed By: #### C MP ####[facility] Idjskrfrfg0840 [place] [address]Dr. Airam Tripathi CO2 [Moles/Vol] 26.0 mmol/L Normal 21.0-32.0 [facility] Comment on above: Performed By: #### C MP ####[facility] Cptygfbuff3237 [place] [address]Dr. Airam Tripathi Creatinine [Mass/Vol] 1.52 mg/dL Critically high 0.55-1.02 [facility] Comment on above: Performed By: #### C MP ####[facility] Okxeqnylgx565[address] [place], [place] [address]Dr. Airam Tripathi EGFR-AF [place] 42 mL/min/1.73m2 Critically low >=60 [facility] Comment on above: Performed By: #### C MP ####[facility] Dmhguqgluy9214[address] [place], [place] [address]Dr. Airam Tripathi EGFR-NON AF [place] 35 mL/min/1.73m2 Critically low >=60 [facility] Comment on above: Performed By: #### C MP ####[facility] Vqcpgiujnv0875[address] [place], [place] [address]Dr. Airam Tripathi Globulin (S) [Mass/Vol] 3.2 g/dL Normal [facility] Comment on above: Performed By: #### C MP ####[facility] Abkcbtvnaj7098[address] [place], [place] [address]Dr. Airam Tripathi Glucose [Mass/Vol] 84 mg/dL Normal 74-106 [facility] Comment on above: Performed By: #### C MP ####[facility] Bxduqhllcz2857[address] [place], [place] [address]Dr. Airam Tripathi Potassium [Moles/Vol] 4.2 mmol/L Normal 3.5-5.1 [facility] Comment on above: Performed By: #### C MP ####[facility] Nelgcwzpba11[address] [place], [place] [address]Dr. Airam Tripathi Protein [Mass/Vol] 6.3 g/dL Critically low 6.4-8.2 [facility] Comment on above: Performed By: #### C MP ####[facility] Cijzxdmfxc6705 [place] [phone]. Airam Tripathi Sodium [Moles/Vol] 135 mmol/L Critically low 136-145 [facility] Comment on above: Performed By: #### C MP ####[facility] Mqsszrimwb6674 [place] [address]Dr. Airam Tripathi Urea nitrogen [Mass/Vol] 36.0 mg/dL Critically high 7.0-18.0 [facility] Comment on above: Performed By: #### C MP ####[facility] Dosdosllws9090 [place] [address]Dr. Airam Tripathi Urea nitrogen/Creatinine [Mass ratio] 23.7 mg/mg Normal [facility] Comment on above: Performed By: #### C MP ####[facility] Powkqvsuwx[address] [place], [place] [address]Dr. Airam Tripathi US BREAST RIGHT LIMITEDon US BREAST RIGHT LIMITED Normal [facility] OSMOLALITYon 12-31-2021 Osmolality [Osmolality] 280 mosm/kg Normal 275-295 [facility] Comment on above: Performed By: #### O SMO ####[facility] Zprzelakpi23[address] [place], [place] [address]Dr. Airam Tripathi CBC AUTO DIFFon 12-30-2021 BASO # 0.0 103/ul Normal 0.0-0.1 [facility] Comment on above: Performed By: #### C BC ####[facility] [address] [place] [address]Dr. Airam Tripathi Basophils/100 WBC (Bld) 0.5 % Normal 0.2-2.0 [facility] Comment on above: Performed By: #### C BC ####[facility] Wqybmspsgm57[address] [place] [address]Dr. Airam Tripathi EO # 0.3 103/ul Normal 0.0-0.7 [facility] Comment on above: Performed By: #### C BC ####[facility] Opsdxtpewm4[address] [place], [place] [address]Dr. Airam Tripathi Eosinophils/100 WBC (Bld) 3.5 % Normal 0.9-7.0 [facility] Comment on above: Performed By: #### C BC ####[facility] Pmitfnlrkz4[address] [place] [address]Dr. Airam Tripathi Erythrocyte distribution width (RBC) [Ratio] 13.0 % Normal 11.0-15.0 [facility] Comment on above: Performed By: #### C BC ####[facility] Ldmunpcjid[address] [place], [place] [address]Dr. Airam Tripathi Hematocrit (Bld) [Volume fraction] 34.2 % Critically low 36.0-48.0 [facility] Comment on above: Performed By: #### C BC ####[facility] Hpyoqfgczi[address] [place], [place] [address]Dr. Airam Tripathi Hemoglobin (Bld) [Mass/Vol] 10.4 g/dL Critically low 12.0-16.0 [facility] Comment on above: Performed By: #### C BC ####[facility] Dqjmkxjbwr14[address] [place], [place] [address]DrKianna Tripathi IG # 0.04 10e3/ul Critically high 0.00-0.03 [facility] Comment on above: Performed By: #### C BC ####[facility] Ofuuyslybm[address] [place], [place] [address]DrKianna Tripathi IG % 0.5 % Normal 0.0-0.5 [facility] Comment on above: Performed By: #### C BC ####[facility] Phfryehini[address] [place], [place] [address]DrKianna Tripathi LYMPH # 2.1 103/ul Normal 1.2-3.8 [facility] Comment on above: Performed By: #### C BC ####[facility] Yonsykkvva[address] [place], [place] [address]DrKianna Tripathi Lymphocytes/100 WBC (Bld) 23.5 % Normal 20.5-60.0 [facility] Comment on above: Performed By: #### C BC ####[facility] Tuxvkpljyc59[address] [place], [place] [address]DrKianna Tripathi MANUAL DIFF REQ NO Normal [facility] Comment on above: Performed By: #### C BC ####[facility] Nqrzblbdjf78[address] [place] [address]Dr. Airam Deuce MCH (RBC) [Entitic mass] 29.4 pg Normal 26.7-34.0 [facility] Comment on above: Performed By: #### C BC ####[facility] Amccnhpgbk25[address] [place] [address]Dr. Airam Tripathi MCHC (RBC) [Mass/Vol] 30.4 g/dL Normal 29.9-35.2 [facility] Comment on above: Performed By: #### C BC ####[facility] Hpgiuhpndk13[address] [place], [place] [address]DrKianna Tripathi MCV (RBC) [Entitic vol] 96.6 fL Normal 81.0-99.0 [facility] Comment on above: Performed By: #### C BC ####[facility] Rkcarltiom056[address] [place], [place] [address]DrKianna Tripathi MONO # 0.6 103/ul Normal 0.3-0.8 [facility] Comment on above: Performed By: #### C BC ####[facility] Pcniaoeasp0775[address] [place], [place] [address]Dr. Airam Tripathi Monocytes/100 WBC (Bld) 6.4 % Normal 1.7-12.0 [facility] Comment on above: Performed By: #### C BC ####[facility] Rinpzjeenk99[address] [place], [place] [address]DrKianna Tripathi NEUT # 5.8 103/ul Normal 1.4-6.5 [facility] Comment on above: Performed By: #### C BC ####[facility] Eiqozigvsg1835[address] [place], [place] [address]DrKianna Tripathi Neutrophils/100 WBC (Bld) 65.6 % Normal 43.0-75.0 [facility] Comment on above: Performed By: #### C BC ####[facility] Qxnjqajrgd647[address] [place], [place] [address]DrKianna Tripathi Platelet mean volume (Bld) [Entitic vol] 9.2 fL Critically low 9.5-13.5 [facility] Comment on above: Performed By: #### C BC ####[facility] Gqznphygtk2[address] [place] [address]Dr. Airam Tripathi PLT 338 103/ul Normal 150-450 [facility] Comment on above: Performed By: #### C BC ####[facility] Wphhgdouzg65[address] [place] [address]Dr. Airam Tripathi RBC 3.54 106/ul Critically low 4.20-5.40 [facility] Comment on above: Performed By: #### C BC ####[facility] Cotdffwnst[address] [place] [address]Dr. Airam Tripathi WBC 8.9 103/ul Normal 4.0-11.0 [facility] Comment on above: Performed By: #### C BC ####[facility] Zgthlnjqgh[address] [place] [address]Dr. Airam Tripathi MG MAMM SCREEN 3D GUMARO CADon 12-30-2021 MG MAMM SCREEN 3D UGMARO CAD Normal [facility] PROF 14(COMP METB)on 022 Albumin [Mass/Vol] 3.6 g/dL Normal 3.4-5.0 [facility] Comment on above: Performed By: #### C MP ####[facility] Lztbsisylv[address] [place], [place] [address]Dr. Airam Tripathi Albumin/Globulin [Mass ratio] 1.1 {ratio} Normal [facility] Comment on above: Performed By: #### C MP ####[facility] Fngmfstqad33[address] [place] [address]Dr. Airam Deuce ALP [Catalytic activity/Vol] 117 U/L Critically high 46-116 [facility] Comment on above: Performed By: #### C MP ####[facility] Vqxfyhguuo24[address] [place] [address]Dr. Airam Deuce ALT [Catalytic activity/Vol] 26 U/L Normal 14-59 [facility] Comment on above: Performed By: #### C MP ####[facility] Fenorllkhm18[address] [place] [address]Dr. Airam Tripathi Anion gap [Moles/Vol] 11.2 mmol/L Normal [facility] Comment on above: Performed By: #### C MP ####[facility] Nvrbmsxljt7345 [place] [address]Dr. Airam Tripathi AST [Catalytic activity/Vol] 29 U/L Normal 15-37 [facility] Comment on above: Performed By: #### C MP ####[facility] Mwqpxcfmsk8718 [place] [address]Dr. Airam Tripathi Bilirubin [Mass/Vol] 0.3 mg/dL Normal 0.2-1.0 [facility] Comment on above: Performed By: #### C MP ####[facility] Ykdmmenevf4905 [place] [address]Dr. Selenaneil Tripathi Calcium [Mass/Vol] 9.1 mg/dL Normal 8.5-10.1 [facility] Comment on above: Performed By: #### C MP ####[facility] Yfkresbhii1060[address] [place], [place] [address]Dr. Airam Deuce Chloride [Moles/Vol] 101 mmol/L Normal 98-107 [facility] Comment on above: Performed By: #### C MP ####[facility] Pngeeajdwm1227 [place] [address]Dr. Airam Deuce CO2 [Moles/Vol] 26.8 mmol/L Normal 21.0-32.0 [facility] Comment on above: Performed By: #### C MP ####[facility] Ktjzcaogtm6236 [place] [address]Dr. Selenaneil Deuce Creatinine [Mass/Vol] 1.56 mg/dL Critically high 0.55-1.02 [facility] Comment on above: Performed By: #### C MP ####[facility] Pqyndnjvrl5377 [place] [address]Dr. Airam Deuce EGFR-AF [place] 41 mL/min/1.73m2 Critically low >=60 [facility] Comment on above: Performed By: #### C MP ####[facility] Ntiykjjxns16[address] [place], [place] [address]Dr. Airam Tripathi EGFR-NON AF [place] 34 mL/min/1.73m2 Critically low >=60 [facility] Comment on above: Performed By: #### C MP ####[facility] Atppbnmolv6[address] [place] [address]Dr. Airam Tripathi Globulin (S) [Mass/Vol] 3.3 g/dL Normal [facility] Comment on above: Performed By: #### C MP ####[facility] Shlkesivbx4402 [place] [address]Dr. Airam Tripathi Glucose [Mass/Vol] 84 mg/dL Normal 74-106 [facility] Comment on above: Performed By: #### C MP ####[facility] Hbvekyqlpe5490[address] [place], [place] [address]Dr. Airam Tripathi Potassium [Moles/Vol] 5.0 mmol/L Normal 3.5-5.1 [facility] Comment on above: Performed By: #### C MP ####[facility] Rcllmntrla3827[address] [place], [place] [address]Dr. Airam Tripathi Protein [Mass/Vol] 6.9 g/dL Normal 6.4-8.2 [facility] Comment on above: Performed By: #### C MP ####[facility] Uxzfqjhglr7769[address] [place], [place] [address]Dr. Airam Tripathi Sodium [Moles/Vol] 134 mmol/L Critically low 136-145 [facility] Comment on above: Performed By: #### C MP ####[facility] Lowcbczljr7545[address] [place], [place] [address]Dr. Airam Tripathi Urea nitrogen [Mass/Vol] 28.0 mg/dL Critically high 7.0-18.0 [facility] Comment on above: Performed By: #### C MP ####[facility] Htormvpfje9910[address] [place], [place] [address]Dr. Airam Tripathi Urea nitrogen/Creatinine [Mass ratio] 17.9 mg/mg Normal [facility] Comment on above: Performed By: #### C MP ####[facility] Ridspyyefs7[address] [place], [place] [address]Dr. Airam Tripathi OSMOLALITYon 12-24-2021 Osmolality [Osmolality] 287 mosm/kg Normal 275-295 [facility] Comment on above: Performed By: #### O SMO ####[facility] Lshmfqnlla38[address] [place] [address]Dr. Airam Tripathi CBC AUTO DIFFon 12-22-2021 BASO # 0.0 103/ul Normal 0.0-0.1 [facility] Comment on above: Performed By: #### C BC ####[facility] Yspaspnctc06[address] [place], [place] [address]Dr. Airam Tripathi Basophils/100 WBC (Bld) 0.5 % Normal 0.2-2.0 [facility] Comment on above: Performed By: #### C BC ####[facility] Mlpnmbtfru132[address] [place], [place] [address]Dr. Airam Tripathi EO # 0.4 103/ul Normal 0.0-0.7 [facility] Comment on above: Performed By: #### C BC ####[facility] Qpdiocgjqu[address] [place], [place] [address]Dr. Airam Tripathi Eosinophils/100 WBC (Bld) 6.4 % Normal 0.9-7.0 [facility] Comment on above: Performed By: #### C BC ####[facility] Ubcreanway50[address] [place], [place] [address]Dr. Airam Tripathi Erythrocyte distribution width (RBC) [Ratio] 13.2 % Normal 11.0-15.0 [facility] Comment on above: Performed By: #### C BC ####[facility] Ckascppjva69[address] [place], [place] [address]Dr. Airam Tripathi Hematocrit (Bld) [Volume fraction] 32.2 % Critically low 36.0-48.0 [facility] Comment on above: Performed By: #### C BC ####[facility] Sumybkjuxo5[address] [place], [place] [address]Dr. Airam Tripathi Hemoglobin (Bld) [Mass/Vol] 10.1 g/dL Critically low 12.0-16.0 [facility] Comment on above: Performed By: #### C BC ####[facility] Qbojwqtscu44[address] [place] [address]Dr. Selenaneil Tripathi IG # 0.03 10e3/ul Normal 0.00-0.03 [facility] Comment on above: Performed By: #### C BC ####[facility] Juhnznofbf5[address] [place] [phone]. Airam Tripathi IG % 0.5 % Normal 0.0-0.5 [facility] Comment on above: Performed By: #### C BC ####[facility] Ogfyfwmogf16[address] [place] [address]Dr. Airam Tripathi LYMPH # 1.3 103/ul Normal 1.2-3.8 [facility] Comment on above: Performed By: #### C BC ####[facility] Pvgxqvebcw6406 [place] [address]Dr. Airam Tripathi Lymphocytes/100 WBC (Bld) 20.5 % Normal 20.5-60.0 [facility] Comment on above: Performed By: #### C BC ####[facility] Lfjyanvfap[address] [place], [place] [address]Dr. Airam Tripathi MANUAL DIFF REQ NO Normal [facility] Comment on above: Performed By: #### C BC ####[facility] Qjxhpjrglu0362 [place] [address]Dr. Selenaneil Tripathi MCH (RBC) [Entitic mass] 30.1 pg Normal 26.7-34.0 [facility] Comment on above: Performed By: #### C BC ####[facility] Iifqpffgvz1539 [place] [address]Dr. Selenaneil Tripathi MCHC (RBC) [Mass/Vol] 31.4 g/dL Normal 29.9-35.2 [facility] Comment on above: Performed By: #### C BC ####[facility] Twtyvthxge0955 [place] [address]Dr. Airam Tripathi MCV (RBC) [Entitic vol] 95.8 fL Normal 81.0-99.0 [facility] Comment on above: Performed By: #### C BC ####[facility] Szmpkaequw1307 [place] [phone]. Airam Tripathi MONO # 0.5 103/ul Normal 0.3-0.8 [facility] Comment on above: Performed By: #### C BC ####[facility] Unttdwajac3728 [place] [phone]. Airam Tripathi Monocytes/100 WBC (Bld) 7.4 % Normal 1.7-12.0 [facility] Comment on above: Performed By: #### C BC ####[facility] Zseeppfxkq0484 [place] [phone]. Airam Tripathi NEUT # 3.9 103/ul Normal 1.4-6.5 [facility] Comment on above: Performed By: #### C BC ####[facility] Eznlntvnzo8050 [place] [phone]. Aiarm Tripathi Neutrophils/100 WBC (Bld) 64.7 % Normal 43.0-75.0 [facility] Comment on above: Performed By: #### C BC ####[facility] Yrvdppconj2448 [place] [phone]. Airam Tripathi Platelet mean volume (Bld) [Entitic vol] 9.2 fL Critically low 9.5-13.5 [facility] Comment on above: Performed By: #### C BC ####[facility] Sbyxznphfs9117 [place] [phone]. Airam Tripathi PLT 309 103/ul Normal 150-450 [facility] Comment on above: Performed By: #### C BC ####[facility] Pnucyktgfl5433 [place] [phone]. Airam Tripathi RBC 3.36 106/ul Critically low 4.20-5.40 [facility] Comment on above: Performed By: #### C BC ####[facility] Yhmkljvbwx7184 [place] [phone]. Airam Tripathi WBC 6.1 103/ul Normal 4.0-11.0 [facility] Comment on above: Performed By: #### C BC ####[facility] Gdiujzblxm1900 [place] [phone]. Airam Tripathi PROF 14(COMP METB)on 022 Albumin [Mass/Vol] 3.2 g/dL Critically low 3.4-5.0 [facility] Comment on above: Performed By: #### C MP ####[facility] Xdlytxpmdk3695 [place] [address]Dr. Airam Tripathi Albumin/Globulin [Mass ratio] 1.1 {ratio} Normal [facility] Comment on above: Performed By: #### C MP ####[facility] Uqygkexhrs3809 [place] [address]Dr. Airam Tripathi ALP [Catalytic activity/Vol] 123 U/L Critically high 46-116 [facility] Comment on above: Performed By: #### C MP ####[facility] Qbiaafcnxn13[address] [place], [place] [address]Dr. Airam Tripathi ALT [Catalytic activity/Vol] 26 U/L Normal 14-59 [facility] Comment on above: Performed By: #### C MP ####[facility] Fjwsaplwhs[address] [place], [place] [address]Dr. Airam Tripathi Anion gap [Moles/Vol] 14.5 mmol/L Normal [facility] Comment on above: Performed By: #### C MP ####[facility] Zouobczlay451[address] [place], [place] [address]Dr. Airam Tripathi AST [Catalytic activity/Vol] 23 U/L Normal 15-37 [facility] Comment on above: Performed By: #### C MP ####[facility] Zliecvdivx4537[address] [place], [place] [address]Dr. Airam Tripathi Bilirubin [Mass/Vol] 0.3 mg/dL Normal 0.2-1.0 [facility] Comment on above: Performed By: #### C MP ####[facility] Zpdvsmmvxw6306[address] [place], [place] [address]Dr. Airam Tripathi Calcium [Mass/Vol] 8.2 mg/dL Critically low 8.5-10.1 [facility] Comment on above: Performed By: #### C MP ####[facility] Pcmrtbrgbq0440 [place] [address]Dr. Airam Tripathi Chloride [Moles/Vol] 102 mmol/L Normal 98-107 [facility] Comment on above: Performed By: #### C MP ####[facility] Binfxkepaf1062 [place] [address]Dr. Airam Tripathi CO2 [Moles/Vol] 23.2 mmol/L Normal 21.0-32.0 [facility] Comment on above: Performed By: #### C MP ####[facility] Aixtcjetoc517[address] [place], [place] [address]Dr. Airam Tripathi Creatinine [Mass/Vol] 1.98 mg/dL Critically high 0.55-1.02 [facility] Comment on above: Performed By: #### C MP ####[facility] Ieufenwizz6715[address] [place], [place] [address]Dr. Airam Deuce EGFR-AF [place] 31 mL/min/1.73m2 Critically low >=60 [facility] Comment on above: Performed By: #### C MP ####[facility] Jvuufdjbtg[address] [place], [place] [address]Dr. Airam Tripathi EGFR-NON AF [place] 26 mL/min/1.73m2 Critically low >=60 [facility] Comment on above: Performed By: #### C MP ####[facility] Vmwyqpzdre3767[address] [place], [place] [address]Dr. Airam Deuce Globulin (S) [Mass/Vol] 3.0 g/dL Normal [facility] Comment on above: Performed By: #### C MP ####[facility] Nuxzkjgwel6869[address] [place], [place] [address]Dr. Airam Deuce Glucose [Mass/Vol] 131 mg/dL Critically high 74-106 [facility] Comment on above: Performed By: #### C MP ####[facility] Iudkagakkx3934[address] [place], [place] [address]Dr. Airam Deuce Potassium [Moles/Vol] 4.7 mmol/L Normal 3.5-5.1 [facility] Comment on above: Performed By: #### C MP ####[facility] Kmznzvrkkq3815[address] [place], [place] [address]Dr. Airam Tripathi Protein [Mass/Vol] 6.2 g/dL Critically low 6.4-8.2 [facility] Comment on above: Performed By: #### C MP ####[facility] Xbmvfxrrnh7448[address] [place], [place] [address]Dr. Airam Tripathi Sodium [Moles/Vol] 135 mmol/L Critically low 136-145 [facility] Comment on above: Performed By: #### C MP ####[facility] Cpdwhysglk7180[address] [place], [place] [address]Dr. Airam Tripathi Urea nitrogen [Mass/Vol] 37.0 mg/dL Critically high 7.0-18.0 [facility] Comment on above: Performed By: #### C MP ####[facility] Iuyrzttuxv033[address] [place], [place] [address]Dr. Airam Deuce Urea nitrogen/Creatinine [Mass ratio] 18.7 mg/mg Normal [facility] Comment on above: Performed By: #### C MP ####[facility] Fotpdejrho[address] [place], [place] [address]Dr. Airam Tripathi OSMOLALITYon 12-18-2021 Osmolality [Osmolality] 271 mosm/kg Critically low 275-295 [facility] Comment on above: Performed By: #### O SMO ####[facility] Kfaaawxexs97[address] [place], [place] [address]Dr. Airam Tripathi CBC AUTO DIFFon 12-16-2021 BASO # 0.0 103/ul Normal 0.0-0.1 [facility] Comment on above: Performed By: #### C BC ####[facility] Mbobpdvqcr45[address] [place], [place] [address]Dr. Airam Deuce Basophils/100 WBC (Bld) 0.6 % Normal 0.2-2.0 [facility] Comment on above: Performed By: #### C BC ####[facility] Aklaaksonr5874[address] [place], [place] [address]Dr. Airam Deuce EO # 0.1 103/ul Normal 0.0-0.7 [facility] Comment on above: Performed By: #### C BC ####[facility] Viboxmfovo3973 [place] [phone]. Airam Tripathi Eosinophils/100 WBC (Bld) 2.1 % Normal 0.9-7.0 [facility] Comment on above: Performed By: #### C BC ####[facility] Cebzjwqoxj4444 [place] [phone]. Airam Tripathi Erythrocyte distribution width (RBC) [Ratio] 13.1 % Normal 11.0-15.0 [facility] Comment on above: Performed By: #### C BC ####[facility] Hqmvdkiavb[address] [place], [place] [address]Dr. Airam Tripathi Hematocrit (Bld) [Volume fraction] 33.8 % Critically low 36.0-48.0 [facility] Comment on above: Performed By: #### C BC ####[facility] Ukbnfbfzph16[address] [place], [place] [address]Dr. Airam Tripathi Hemoglobin (Bld) [Mass/Vol] 10.7 g/dL Critically low 12.0-16.0 [facility] Comment on above: Performed By: #### C BC ####[facility] Kowtyuelxj1726[address] [place], [place] [address]Dr. Airam Tripathi IG # 0.02 10e3/ul Normal 0.00-0.03 [facility] Comment on above: Performed By: #### C BC ####[facility] Kcvfvnuulr8[address] [place], [place] [address]Dr. Airam Tripathi IG % 0.3 % Normal 0.0-0.5 [facility] Comment on above: Performed By: #### C BC ####[facility] Ygstdidqor7440[address] [place], [place] [address]Dr. Airam Tripathi LYMPH # 1.2 103/ul Normal 1.2-3.8 [facility] Comment on above: Performed By: #### C BC ####[facility] Mwtwgospes8212[address] [place], [place] [address]Dr. Airam Tripathi Lymphocytes/100 WBC (Bld) 17.3 % Critically low 20.5-60.0 [facility] Comment on above: Performed By: #### C BC ####[facility] Fsmpvflrla7637 [place] [address]Dr. Airam Tripathi MANUAL DIFF REQ NO Normal [facility] Comment on above: Performed By: #### C BC ####[facility] Wqnydhoprt1282 [place] [address]Dr. Airam Tripathi MCH (RBC) [Entitic mass] 30.2 pg Normal 26.7-34.0 [facility] Comment on above: Performed By: #### C BC ####[facility] Qgapqqqkle3[address] [place], [place] [address]Dr. Airam Tripathi MCHC (RBC) [Mass/Vol] 31.7 g/dL Normal 29.9-35.2 [facility] Comment on above: Performed By: #### C BC ####[facility] Zfpfssyugc34[address] [place], [place] [address]Dr. Airam Tripathi MCV (RBC) [Entitic vol] 95.5 fL Normal 81.0-99.0 [facility] Comment on above: Performed By: #### C BC ####[facility] Hevkjhuyii7315[address] [place], [place] [address]Dr. Airam Tripathi MONO # 0.5 103/ul Normal 0.3-0.8 [facility] Comment on above: Performed By: #### C BC ####[facility] Bvflmmlfru[address] [place], [place] [address]Dr. Airam Deuce Monocytes/100 WBC (Bld) 6.8 % Normal 1.7-12.0 [facility] Comment on above: Performed By: #### C BC ####[facility] Glftnhzrso7419[address] [place], [place] [address]Dr. Airam Tripathi NEUT # 4.9 103/ul Normal 1.4-6.5 [facility] Comment on above: Performed By: #### C BC ####[facility] Cvfzzrobfj8[address] [place], [place] [address]Dr. Airam Tripathi Neutrophils/100 WBC (Bld) 72.9 % Normal 43.0-75.0 [facility] Comment on above: Performed By: #### C BC ####[facility] Qajtgypbqm1463 [place] [phone]. Airam Tripathi Platelet mean volume (Bld) [Entitic vol] 9.0 fL Critically low 9.5-13.5 [facility] Comment on above: Performed By: #### C BC ####[facility] Umxijjcwki6857 [place] [phone]. Airam Tripathi PLT 297 103/ul Normal 150-450 [facility] Comment on above: Performed By: #### C BC ####[facility] Trsfjwsrsv1834 [place] [address]Dr. Airam Tripathi RBC 3.54 106/ul Critically low 4.20-5.40 [facility] Comment on above: Performed By: #### C BC ####[facility] Zxpsfsfhof1617 [place] [address]Dr. Airam Tripathi WBC 6.8 103/ul Normal 4.0-11.0 [facility] Comment on above: Performed By: #### C BC ####[facility] [address]uaudhrtt6073 [place] [address]Dr. Airam Tripathi PROF 14(COMP METB)on 022 Albumin [Mass/Vol] 3.2 g/dL Critically low 3.4-5.0 [facility] Comment on above: Performed By: #### C MP ####[facility] F[address]vbcdu[address] [place] [address]Dr. Airam Tripathi Albumin/Globulin [Mass ratio] 1.0 {ratio} Normal [facility] Comment on above: Performed By: #### C MP ####[facility] Sybzootnno[address] [place] [address]Dr. Airam Tripathi ALP [Catalytic activity/Vol] 109 U/L Normal 46-116 [facility] Comment on above: Performed By: #### C MP ####[facility] Yakrfpbyjd[address] [place] [address]Dr. Airam Tripathi ALT [Catalytic activity/Vol] 23 U/L Normal 14-59 [facility] Comment on above: Performed By: #### C MP ####[facility] Y[address]uequyxv[address] [place] [id number]. Airam Tripathi Anion gap [Moles/Vol] 11.6 mmol/L Normal [facility] Comment on above: Performed By: #### C MP ####[facility] Fxabpdckac2459 [place], [place] [address]Ib. Airam Tripathi AST [Catalytic activity/Vol] 24 U/L Normal 15-37 [facility] Comment on above: Performed By: #### C MP ####[facility] Vrtfwekmnv72[address] [place] [id number]. Airam Tripathi Bilirubin [Mass/Vol] 0.2 mg/dL Normal 0.2-1.0 [facility] Comment on above: Performed By: #### C MP ####[facility] Ndyqvyjsrn4709 [place] [phone]. Airam Tripathi Calcium [Mass/Vol] 8.6 mg/dL Normal 8.5-10.1 [facility] Comment on above: Performed By: #### C MP ####[facility] Tkjqxnxqbd9167 [place] [id number]. Airam Tripathi Chloride [Moles/Vol] 100 mmol/L Normal 98-107 [facility] Comment on above: Performed By: #### C MP ####[facility] Ekvlrepymy9233 [place] [phone]. Airam Tripathi CO2 [Moles/Vol] 24.7 mmol/L Normal 21.0-32.0 [facility] Comment on above: Performed By: #### C MP ####[facility] Bzuryrtupr34[address] [place] [phone]. Airam Tripathi Creatinine [Mass/Vol] 1.11 mg/dL Critically high 0.55-1.02 [facility] Comment on above: Performed By: #### C MP ####[facility] Hwgtbohhct8[address] [place] [phone]. Airam Tripathi EGFR-AF [place]ORE[place] >60 Normal >=60 [facility] Comment on above: Performed By: #### C MP ####[facility] Czoqsjzmqc13[address] [place] [address]Dr. Airam Tripathi EGFR-NON AF [place] 50 mL/min/1.73m2 Critically low >=60 [facility] Comment on above: Performed By: #### C MP ####[facility] Fimgueduts[address] [place] [address]Dr. Airam Tripathi Globulin (S) [Mass/Vol] 3.1 g/dL Normal [facility] Comment on above: Performed By: #### C MP ####[facility] Lkgvgmfswp1784 [place] [address]Dr. Aiarm Tripathi Glucose [Mass/Vol] 79 mg/dL Normal 74-106 [facility] Comment on above: Performed By: #### C MP ####[facility] [address] [place], [place] [address]Dr. Airam Tripathi Potassium [Moles/Vol] 5.3 mmol/L Critically high 3.5-5.1 [facility] Comment on above: Performed By: #### C MP ####[facility] Mtunt[address] [place], [place] [address]Dr. Airam Tripathi Protein [Mass/Vol] 6.3 g/dL Critically low 6.4-8.2 [facility] Comment on above: Performed By: #### C MP ####[facility] Ftlryqfeyt[address] [place], [place] [address]Dr. Airam Tripathi Sodium [Moles/Vol] 131 mmol/L Critically low 136-145 [facility] Comment on above: Performed By: #### C MP ####[facility] Igndwroeyx[address] [place], [place] [address]Dr. Airam Tripathi Urea nitrogen [Mass/Vol] 20.0 mg/dL Critically high 7.0-18.0 [facility] Comment on above: Performed By: #### C MP ####[facility] G[address]xt[address]rytp[address] [place], [place] [address]Dr. Airam Tripathi Urea nitrogen/Creatinine [Mass ratio] 18.0 mg/mg Normal [facility] Comment on above: Performed By: #### C MP ####[facility] [address]tntw[address]aky[address] [place] [address]Dr. Airam Tripathi OSMOLALITYon 12-09-2021 Osmolality [Osmolality] 279 mosm/kg Normal 275-295 [facility] Comment on above: Performed By: #### O SMO ####[facility] Vunmhfmurz[address] [place], [place] [address]Dr. Airam Tripathi CBC AUTO DIFFon 12-07-2021 BASO # 0.0 103/ul Normal 0.0-0.1 [facility] Comment on above: Performed By: #### C BC ####[facility] Hyampetxys[address] [place], [place] [address]Dr. Selenaneil Tripathi Basophils/100 WBC (Bld) 0.5 % Normal 0.2-2.0 [facility] Comment on above: Performed By: #### C BC ####[facility] Kczitcomdx[address] [place], [place] [address]Dr. Airam Tripathi EO # 0.4 103/ul Normal 0.0-0.7 [facility] Comment on above: Performed By: #### C BC ####[facility] Jynodlrtya[address] [place], [place] [address]Dr. Airam Tripathi Eosinophils/100 WBC (Bld) 6.3 % Normal 0.9-7.0 [facility] Comment on above: Performed By: #### C BC ####[facility] Rnsoznjihb[address] [place], [place] [address]Dr. Airam Tripathi Erythrocyte distribution width (RBC) [Ratio] 13.3 % Normal 11.0-15.0 [facility] Comment on above: Performed By: #### C BC ####[facility] [address]zbhshdm[address] [place], [place] [address]Dr. Airam Tripathi Hematocrit (Bld) [Volume fraction] 29.5 % Critically low 36.0-48.0 [facility] Comment on above: Performed By: #### C BC ####[facility] Brjbhezacz[address] [place], [place] [address]Dr. Airam Tripathi Hemoglobin (Bld) [Mass/Vol] 9.1 g/dL Critically low 12.0-16.0 [facility] Comment on above: Performed By: #### C BC ####[facility] Heicsvmzna7354 [place] [phone]. Airam Tripathi IG # 0.04 10e3/ul Critically high 0.00-0.03 [facility] Comment on above: Performed By: #### C BC ####[facility] Oysvnwivei6561 [place] [phone]. Airam Tripathi IG % 0.7 % Critically high 0.0-0.5 [facility] Comment on above: Performed By: #### C BC ####[facility] Vhivjpbeme[address] [place] [address]Dr. Airam Tripathi LYMPH # 1.3 103/ul Normal 1.2-3.8 [facility] Comment on above: Performed By: #### C BC ####[facility] Ijplwyjtwk33[address] [place] [address]Dr. Airam Tripathi Lymphocytes/100 WBC (Bld) 20.9 % Normal 20.5-60.0 [facility] Comment on above: Performed By: #### C BC ####[facility] Nxbyxzljuu33[address] [place] [address]Dr. Airam Tripathi MANUAL DIFF REQ NO Normal [facility] Comment on above: Performed By: #### C BC ####[facility] [address]bcxxwvsq[address] [place], [place] [address]Dr. Airam Tripathi MCH (RBC) [Entitic mass] 30.1 pg Normal 26.7-34.0 [facility] Comment on above: Performed By: #### C BC ####[facility] Gcljbedgdo[address] [place], [place] [address]Dr. Airam Tripathi MCHC (RBC) [Mass/Vol] 30.8 g/dL Normal 29.9-35.2 [facility] Comment on above: Performed By: #### C BC ####[facility] Z[address]bfxfnqaw[address] [place], [place] [address]Dr. Airam Tripathi MCV (RBC) [Entitic vol] 97.7 fL Normal 81.0-99.0 [facility] Comment on above: Performed By: #### C BC ####[facility] Gmyvaxfnxp39[address] [place] [phone]. Airam Tripathi MONO # 0.4 103/ul Normal 0.3-0.8 [facility] Comment on above: Performed By: #### C BC ####[facility] Izdazrkltc5360 [place] [phone]. Airam Tripathi Monocytes/100 WBC (Bld) 6.6 % Normal 1.7-12.0 [facility] Comment on above: Performed By: #### C BC ####[facility] Eivvwvyjmb3219 [place] [phone]. Airam Tripathi NEUT # 4.0 103/ul Normal 1.4-6.5 [facility] Comment on above: Performed By: #### C BC ####[facility] Evmodgefat7[address] [place], [place] [address]Dr. Airam Tripathi Neutrophils/100 WBC (Bld) 65.0 % Normal 43.0-75.0 [facility] Comment on above: Performed By: #### C BC ####[facility] Caw[address]vhwopj[address] [place] [address]Dr. Airam Tripathi Platelet mean volume (Bld) [Entitic vol] 9.4 fL Critically low 9.5-13.5 [facility] Comment on above: Performed By: #### C BC ####[facility] Kvjianmtce[address] [place], [place] [address]Dr. Airam Tripathi PLT 224 103/ul Normal 150-450 [facility] Comment on above: Performed By: #### C BC ####[facility] [address]we[address] [place], [place] [address]Dr. Airam Tripathi RBC 3.02 106/ul Critically low 4.20-5.40 [facility] Comment on above: Performed By: #### C BC ####[facility] Uraix[address]qpe[address] [place] [address]Dr. Airam Tripathi WBC 6.1 103/ul Normal 4.0-11.0 [facility] Comment on above: Performed By: #### C BC ####[facility] Khamvpsuof64[address] [place] [address]Dr. Airam Tripathi PROF 14(COMP METB)on 022 Albumin [Mass/Vol] 2.8 g/dL Critically low 3.4-5.0 [facility] Comment on above: Performed By: #### C MP ####[facility] Exxmrygfab[address] [place] [address]Dr. Airam Tripathi Albumin/Globulin [Mass ratio] 1.1 {ratio} Normal [facility] Comment on above: Performed By: #### C MP ####[facility] [address]xguccfsw[address] [place], [place] [address]Dr. Airam Tripathi ALP [Catalytic activity/Vol] 116 U/L Normal 46-116 [facility] Comment on above: Performed By: #### C MP ####[facility] [address]qpfqzknis[address] [place], [place] [address]Dr. Airam Tripathi ALT [Catalytic activity/Vol] 23 U/L Normal 14-59 [facility] Comment on above: Performed By: #### C MP ####[facility] Ktxrgezzyv[address] [place], [place] [address]Dr. Airam Tripathi Anion gap [Moles/Vol] 12.1 mmol/L Normal Th [facility] Comment on above: Performed By: #### C MP ####[facility] Tkvoaykpxf[address] [place], [place] [address]Dr. Airam Tripathi AST [Catalytic activity/Vol] 23 U/L Normal 15-37 [facility] Comment on above: Performed By: #### C MP ####[facility] Drqwxfowjw[address] [place], [place] [address]Dr. Airam Tripathi Bilirubin [Mass/Vol] 0.2 mg/dL Normal 0.2-1.0 [facility] Comment on above: Performed By: #### C MP ####[facility] [address]abpugaxl[address] [place], [place] [address]Dr. Airam Tripathi Calcium [Mass/Vol] 8.1 mg/dL Critically low 8.5-10.1 [facility] Comment on above: Performed By: #### C MP ####[facility] Sqslfxtdls1638 [place] [phone]. Airam Tripathi Chloride [Moles/Vol] 105 mmol/L Normal 98-107 [facility] Comment on above: Performed By: #### C MP ####[facility] Bzpkdlqhsm9676 [place] [phone]. Airam Tripathi CO2 [Moles/Vol] 22.1 mmol/L Normal 21.0-32.0 [facility] Comment on above: Performed By: #### C MP ####[facility] Ahcpptlkwd0209 [place] [address]Dr. Airam Tripathi Creatinine [Mass/Vol] 1.06 mg/dL Critically high 0.55-1.02 [facility] Comment on above: Performed By: #### C MP ####[facility] [address]boxfo40[address] [place] [address]Dr. Airam Tripathi EGFR-AF [place] >60 Normal >=60 [facility] Comment on above: Performed By: #### C MP ####[facility] Fvdoikapig[address] [place] [address]Dr. Airam Tripathi EGFR-NON AF [place] 53 mL/min/1.73m2 Critically low >=60 [facility] Comment on above: Performed By: #### C MP ####[facility] [address]ntiekwle[address] [place] [address]Dr. Airam Tripathi Globulin (S) [Mass/Vol] 2.6 g/dL Normal [facility] Comment on above: Performed By: #### C MP ####[facility] Aclmtgbqyg5475 [place] [address]Dr. Airam Tripathi Glucose [Mass/Vol] 109 mg/dL Critically high 74-106 [facility] Comment on above: Performed By: #### C MP ####[facility] Umqtvisazx7834 [place] [address]Dr. Airam Tripathi Potassium [Moles/Vol] 4.2 mmol/L Normal 3.5-5.1 [facility] Comment on above: Performed By: #### C MP ####[facility] Eogbvsfblk2251 [place] [address]Dr. Airam Tripathi Protein [Mass/Vol] 5.4 g/dL Critically low 6.4-8.2 Th [facility] Comment on above: Performed By: #### C MP ####[facility] Wxyjlcnpqk7786 [place] [address]Dr. Airam Tripathi Sodium [Moles/Vol] 135 mmol/L Critically low 136-145 Th [facility] Comment on above: Performed By: #### C MP ####[facility] Mgwewadljo4448 [place] [address]Dr. Airam Tripathi Urea nitrogen [Mass/Vol] 15.0 mg/dL Normal 7.0-18.0 [facility] Comment on above: Performed By: #### C MP ####[facility] Mfqgjofxhm3602 [place] [address]Dr. Airam Tripathi Urea nitrogen/Creatinine [Mass ratio] 14.2 mg/mg Normal [facility] Comment on above: Performed By: #### C MP ####[facility] Yqfntkjdee1410 [place] [id number]. Airam Tripathi Operative Reporton Operative Report MR#: [id number] [facility] Pt. Name: Mabel Moser Room #: [...] subscapularis. 3. Right shoulder proximal biceps tenotomy. RIDING COACH: Alex Serra M.D. ANESTHESIA: General. INDICATIONS: The [...] Reza M.D. Date Trans: 08/19/2021 11:37 A/carter DN_[id number] cc: Angle Santana M.D. [address], [facility] [id number] Normal [facility] POC GLUCOSE LABon 08-19-2021 Glucose [Mass/Vol] 77 mg/dL Normal 70-100 [facility] Comment on above: Performed By: #### [id number] #### [facility] [address] 04-05-2021 CNPN Telephone (ANDREW) -- MABEL MOSER ([id number]) 1960 F Date Time Provider Department 04/05/21 YEVGENIY FORD During your visit today, we recorded the following information about you: Chana Gallegos [facility] 04/05/2021 7:57 AM Signed Records faxed to the cancer center at [facility]. Patient to follow with Dr. Liu. Release [...] by CATHRYN CARTER CHANA L on 04/05/21 [facility] OBSOLETEon 01-11-2021 OBSOLETE Refill (HEMASA) -- MABEL MOSER ([id number]) 1960 F Date Time Provider Department 01/11/21 [...] disease) stage 3, GFR 30-59 ml/min (FORMER[facility]) [N18.30] Order(s):cyanocobalamin 1,000 mcg/mLINJECT 1 ML INTRAMUSCULARLY [...] Status:Closed by YEVGENIY FORD on 01/12/21 [facility] Vital Signs Date Time Vital Sign Value Performing Clinician Facility 07-03-2023 12:00-0500 Body temperature 97.9 [degF] MD Angle Santana Work Phone: [facility] 07-03-2023 12:00-0500 Diastolic blood pressure 71 mm[Hg] MD Angle Santana Work Phone: [facility] 07-03-2023 12:00-0500 Heart rate 68 /min MD Angle Santana Work Phone: [facility] 07-03-2023 12:00-0500 Respiratory rate 16 /min MD Angle Santana Work Phone: [facility] 07-03-2023 12:00-0500 SaO2% (BldA) [Mass fraction] 100 % MD Angle Santana Work Phone: [facility] 07-03-2023 12:00-0500 Systolic blood pressure 121 mm[Hg] MD Angle Santana Work Phone: [facility] 07-03-2023 04:49-0500 Body weight 85.8 kg MD Angle Santana Work Phone: [facility] 06-30-2023 14:44-0500 Body height 157.48 cm MD Angle Santana Work Phone: [facility] 04-04-2023 16:20-0400 Body height 158.75 cm Raeann Huntercristin Other [facility] [employer] Other 04-04-2023 16:20-0400 Body mass index (BMI) [Ratio] 31.46 kg/m2 Donnieariel [employer] Other [employer] Other 04-04-2023 16:20-0400 Body temperature 98 [degF] Raeann [employer] Other [employer] Other 04-04-2023 16:20-0400 Body weight 79.29 kg Donnieariel [employer] Other [employer] Other 04-04-2023 16:20-0400 Diastolic blood pressure 81 mm[Hg] Raeann Kirkpatrick Other [facility] [employer] Other 04-04-2023 16:20-0400 Respiratory rate 18 /min Raeann Kirkpatrick Other [facility] [employer] Other 04-04-2023 16:20-0400 SaO2% (BldA) [Mass fraction] 98 % Raeann Kirkpatrick Other [facility] [employer] Other 04-04-2023 16:20-0400 Systolic blood pressure 133 mm[Hg] Raeann Kirkpatrick Other [facility] [employer] Other 10-28-2022 22:23-0400 Body temperature 97.4 [degF] MD Angle Santana Work Phone: [facility] 10-28-2022 22:00-0400 Diastolic blood pressure 74 mm[Hg] MD Angle Santana Work Phone: [facility] 10-28-2022 22:00-0400 Heart rate 72 /min MD Angle Santana Work Phone: [facility] 10-28-2022 22:00-0400 Respiratory rate 20 /min MD Angle Santana Work Phone: [facility] 10-28-2022 22:00-0400 SaO2% (BldA) [Mass fraction] 97 % MD Angle Santana Work Phone: [facility] 10-28-2022 22:00-0400 Systolic blood pressure 169 mm[Hg] MD Angle Santana Work Phone: [facility] 10-28-2022 17:54-0400 Body height 157.48 cm MD Angle Santana Work Phone: [facility] 10-28-2022 17:54-0400 Body weight 83.7 kg MD Angle Santana Work Phone: [facility] 09-27-2022 12:00-0400 Body height 158.75 cm Azariel Bakhous Other [employer] Other 09-27-2022 12:00-0400 Body mass index (BMI) [Ratio] 31.78 kg/m2 Aziz Bakhous Other [employer] Other 09-27-2022 12:00-0400 Body temperature 96.1 [degF] Aziz Bakhous Other [employer] Other 09-27-2022 12:00-0400 Body weight 80.11 kg Aziz Bakhous Other [employer] Other 09-27-2022 12:00-0400 Diastolic blood pressure 82 mm[Hg] Aziz Bakhous Other [employer] Other 09-27-2022 12:00-0400 Respiratory rate 18 /min Aziz Bakhous Other [employer] Other 09-27-2022 12:00-0400 SaO2% (BldA) [Mass fraction] 99 % Aziz Bakhous Other [employer] Other 09-27-2022 12:00-0400 Systolic blood pressure 140 mm[Hg] Aziz Bakhous Other [employer] Other 04-12-2022 14:00-0400 Body height 158.75 cm Aziz Bakhous Other [employer] Other 04-12-2022 14:00-0400 Body mass index (BMI) [Ratio] 30.13 kg/m2 Aziz Bakhous Other [employer] Other 04-12-2022 14:00-0400 Body temperature 97.6 [degF] Raeann Mishras Other [employer] Other 04-12-2022 14:00-0400 Body weight 75.93 kg Raeann Mishras Other [employer] Other 04-12-2022 14:00-0400 Diastolic blood pressure 95 mm[Hg] Raeann Mishras Other [employer] Other 04-12-2022 14:00-0400 Respiratory rate 18 /min Raeann Kirkpatrick Other [employer] Other 04-12-2022 14:00-0400 SaO2% (BldA) [Mass fraction] 98 % Raeann Kirkpatrick Other [employer] Other 04-12-2022 14:00-0400 Systolic blood pressure 175 mm[Hg] Raeann Kirkpatrick Other [employer] Other 06-16-2021 16:20-0500 Body height 158.75 cm Bryonirvin Rascongerald Other [employer] Other 06-16-2021 16:20-0500 Body mass index (BMI) [Ratio] 30.88 kg/m2 Bryonirvin Praveena Other [employer] Other 06-16-2021 16:20-0500 Body temperature 96.4 [degF] Los Rascongerald Other [employer] Other 06-16-2021 16:20-0500 Body weight 77.84 kg Los Grissom Other [employer] Other 06-16-2021 16:20-0500 Diastolic blood pressure 88 mm[Hg] Los Grissom Other [employer] Other 06-16-2021 16:20-0500 Respiratory rate 18 /min Los Grissom Other [employer] Other 06-16-2021 16:20-0500 SaO2% (BldA) [Mass fraction] 99 % Los Grissom Other [employer] Other 06-16-2021 16:20-0500 Systolic blood pressure 137 mm[Hg] Lso Grissom Other [employer] Other Encounters Encounter Date Encounter Type Care Provider Facility Start: 07-13-2023 ambulatory BENJIE HIDALGO [facility] Start: 07-11-2023 End: 07-11-2023 ambulatory Raeann Kirkpatrick Other [employer] Other Start: 07-11-2023 Telephone encounter Raeann [facility] Start: 06-29-2023 End: 07-03-2023 Evaluation and management of inpatient Jim Randhawa Facility:[facility] Start: 06-29-2023 End: 07-03-2023 Evaluation and management of inpatient MD Angle Santana Work Phone: [facility] Work Phone: Start: 04-04-2023 End: 04-04-2023 ambulatory Raeann Mishras Other [employer] Other Start: 04-04-2023 Office outpatient visit 25 minutes Azariel Mishras [facility] Start: 04-03-2023 End: 04-03-2023 ambulatory Azariel Mishras Other [employer] Other Start: 04-03-2023 Telephone encounter Azariel Mishras [facility] Start: 02-22-2023 End: 02-22-2023 ambulatory RHIANNON BERNARD [facility] Start: 02-16-2023 ambulatory DUNCAN DENNIS [facility] Start: 01-13-2023 End: 01-14-2023 ambulatory SHERLY ROSADO [facility] Start: 12-15-2022 End: 12-16-2022 ambulatory [facility] Start: 12-12-2022 End: 12-12-2022 ambulatory Azariel Bakhous Other [employer] Other Start: 12-12-2022 Telephone encounter Raeann Mishras [facility] Start: 12-08-2022 End: 12-08-2022 ambulatory Raeann Mishras Other [employer] Other Start: 12-08-2022 Telephone encounter Raeann Mishras [facility] Start: 11-30-2022 End: 11-30-2022 ambulatory [facility] Start: 11-22-2022 End: 11-22-[address] ANGLE SANTANA . Facility:[facility] Start: 11-22-2022 End: 11-22-2022 ambulatory NARENDRANATH LAKSHMIPATHY . Facility:[facility] Start: 11-16-2022 End: 11-16-[address] ANGLE SANTANA . Facility:[facility] Start: 11-07-2022 End: 11-07-2022 ambulatory [facility] Start: 11-04-2022 End: 11-05-2022 ambulatory NARENDRANATH LAKSHMIPATHY . Facility:[facility] Start: 11-03-2022 End: 11-03-[address] ANGLE SANTANA . Facility:[facility] Start: 10-31-2022 ambulatory SANTOS ONELIA . Facili ty:[facility] Start: 10-28-2022 End: 10-29-2022 Emergency department patient visit Favian Helm Facility:[facility] Start: 10-28-2022 End: 10-28-2022 Emergency department patient visit MD Angle Santana Work Phone: [facility] Work Phone: Start: 10-28-2022 End: 10-28-2022 ambulatory [facility] Start: 10-27-2022 End: 10-28-2022 ambulatory SADIE [...] Facility:[facility] Start: 10-10-2022 End: 10-10-2022 ambulatory ZANDRA [facility] Start: 10-05-2022 End: 10-07-[address] ANGLE SANTANA . Facility:[facility] Start: 10-05-2022 ambulatory FELECIA MILIAN . Facility: [facility] Start: 09-29-2022 End: 10-04-[address] ANGLE SANTANA . Facility:[facility] Start: 09-27-2022 End: 09-27-2022 ambulatory Raeann Kirkpatrick Other [employer] Other Start: 09-27-2022 Office outpatient visit 25 [...] 08-23-2022 End: 08-23-2022 ambulatory Sue Leiva Other [employer] Other Start: 08-23-2022 Office outpatient ne w 30 minutes Sue Leiva [facility] Start: 08-16-2022 End: 08-17-[address] [...] Facility:[facility] Start: 05-17-2022 End: 05-18-[address] ANLGE SANTANA . Facility:[facility] Start: 05-03-2022 End: 05-04-[address] ANGLE SANTANA . Facility:[facility] Start: 04-28-2022 End: 04-29-[address] ANGLE SANTANA . Facility:[facility] Start: 04-28-2022 End: 05-17-[address] ANGLE SANTANA . Facility:[facility] Start: 04-12-2022 End: 04-12-2022 ambulatory Donnieariel Tadjohnnie Other [employer] Other Start: 04-12-2022 Office outpatient visit 25 minutes Raeann Harrisoncristin [facility] [place] Start: 04-06-[address] ANGLE [...] 01-10-2022 End: 01-11-2022 ambulatory Robert Johnston Facility:[facility] Start: 01-06-2022 End: 01-07-[address] ANGLE SANTANA . Facility:[facility] Start: 12-30-2021 End: 01-19-[address] ANGLE SANTANA . Facility:[facility] Start: 12-23-2021 End: 12-24-2021 ambulatory NNAMDI DEJESUS . Facility:[facility] Start: 12-07-2021 End: 12-22-[address] ANGLE SANTANA . Facility:[facility] Start: 12-07-2021 End: 12-07-[address] ANGLE SANTANA . Facility:[facility] Start: 08-19-2021 End: 08-20-2021 ambulatory CARLOS REZA Facility:[facility] Start: 06-16-2021 End: 06-16-2021 ambulatory Los Grissom Other [employer] Other Start: 06-16-2021 Office outpatient visit 25 minutes Los Grissom [facility] Neph[facility] Start: 01-14-2019 End: 01-14-2019 Patient encounter procedure [facility] Start: 12-03-2018 End: 12-03-2018 Patient encounter procedure [facility] Procedures Date Procedure Procedure Detail Performing [...] Date Care Activity Detail Author Start: 07-03-2023 [facility] Start: 06-29-2023 Hospital admission [facility] Start: 06-29-2023 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 [facility] Blood chemistry [facility] Patient Education [facility] Work Phone: Patient referral [facility] Work Phone: Payers Date Payer Category Payer Medicare [id number] 2022 Self-pay [id number] 2017 Medicare [id number] 2017 Unknown [id number] 1960 Unknown [id number] 2.16.8 40.1.146022.3.579.2.173 1962 Unknown [id number] 2.16.8 40.1.683780.3.579.2.173 1962 Unknown [id number] 2.16.8 40.1.369905.3.579.2.647 1962 Unknown [id number] 2.16.8 40.1.942597.3.579.2.647 1962 Unknown [id number] 2.16.84 0.1.669898.3.579.2.593 1962 Unknown [id number] 2.16.84 0.1.911108.3.579.2.593 1962 Unknown [id number] 2.16.84 0.1.902289.3.579.2.593 1962 Unknown [id number] 2.16.84 0.1.818417.3.579.2.593 1962 Unknown [id number] 2.16.84 0.1.948426.3.579.2.593 1962 Unknown [id number] 2.16.84 0.1.548225.3.579.2.593 1962 Unknown [id number] 2.16.84 0.1.583015.3.579.2.593 1962 Unknown [id number] 2.16.84 0.1.087637.3.579.2.593 1962 Unknown [id number] 2.16.84 0.1.244533.3.579.2.593 1962 Unknown [id number] 2.16.84 0.1.349418.3.579.2.593 1962 Unknown [id number] 2.16.84 0.1.962113.3.579.2.593 1962 Unknown [id number] 2.16.84 0.1.048061.3.579.2.593 1962 Unknown [id number] 2.16.84 0.1.418494.3.579.2.593 1962 Unknown [id number] 2.16.84 0.1.016315.3.579.2.593 1962 Unknown [id number] 2.16.84 0.1.037323.3.579.2.593 1962 Unknown [id number] 2.16.84 0.1.076618.3.579.2.593 1962 Unknown [id number] 2.16.84 0.1.114783.3.579.2.593 1962 Unknown [id number] 2.16.84 0.1.608412.3.579.2.593 1962 Unknown [id number] 2.16.84 0.1.396942.3.579.2.593 1962 Unknown [id number] 2.16.84 0.1.560486.3.579.2.593 1962 Unknown [id number] 2.16.84 0.1.222698.3.579.2.593 1962 Unknown [id number] 2.16.84 0.1.204273.3.579.2.593 1962 Unknown [id number] 2.16.84 0.1.062840.3.579.2.593 1962 Unknown [id number] 2.16.84 0.1.328129.3.579.2.593 1962 Unknown [id number] 2.16.84 0.1.520243.3.579.2.593 1962 Unknown [id number] 2.16.84 0.1.990130.3.579.2.593 1962 Unknown [id number] 2.16.84 0.1.960134.3.579.2.593 1962 Unknown [id number] 2.16.84 0.1.531548.3.579.2.593 1962 Unknown [id number] 2.16.84 0.1.953666.3.579.2.593 1962 Unknown [id number] 2.16.84 0.1.573862.3.579.2.593 1962 Unknown [id number] 2.16.84 0.1.386274.3.579.2.593 1962 Unknown [id number] 2.16.84 0.1.251878.3.579.2.593 1962 Unknown [id number] 2.16.84 0.1.600507.3.579.2.593 1962 Unknown [id number] 2.16.84 0.1.275921.3.579.2.593 1962 Unknown [id number] 2.16.84 0.1.759318.3.579.2.593 1962 Unknown [id number] 2.16.84 0.1.634839.3.579.2.593 1962 Unknown [id number] 2.16.84 0.1.728361.3.579.2.593 1962 Unknown [id number] 2.16.84 0.1.338054.3.579.2.593 1962 Unknown [id number] 2.16.84 0.1.868324.3.579.2.593 1962 Unknown [id number] 2.16.84 0.1.425659.3.579.2.593 1962 Unknown [id number] 2.16.84 0.1.899386.3.579.2.593 1962 Unknown [id number] 2.16.84 0.1.304223.3.579.2.593 1962 Unknown [id number] 2.16.84 0.1.724118.3.579.2.593 1962 Unknown [id number] 2.16.84 0.1.663477.3.579.2.593 1962 Unknown [id number] 2.16.84 0.1.077465.3.579.2.593 1962 Unknown [id number] 2.16.84 0.1.686043.3.579.2.593 1959 Medicaid [id number] Unknown [id number] 2.1 6.840.1.606122.19 Unknown Aron ROSALES/HILARIA [id number] Unknown [id number] 2.16.8 40.1.304163.3.579.2.531 Unknown [id number] 2.16.8 40.1.966661.3.579.2.531 Social History Date Type Detail Facility Unknown if ever smoked [employer] Other Sex Assigned At Sex Assigned At Bir th [employer] Other Start: 10-28-2022 End: 06-30-2023 Tobacco smoking status NHIS Never smoked tobacco (finding) [facility] Start: 1960 Sex Assigned At Female F [facility] Goals Date Patient Goal Desired Activity /State Functional Status Date Assessment Result Facility 07-03-2023 Functional status Patient at [facility] Work Phone: Mental Status Date Assessment Result Facility 07-03-2023 Cognitive function Cognitive Sta tus Patient at Baseline [facility] Work Phone: Clinical Notes 06-16-2021 to 07-13-2023 Note Date & Type Note Facility 07-13-2023 Note [facility] Subjective Mabel Moser is a 63 y.o. year old female patient being seen for 6 mo follow up chronic diastolic heart failure, CKD, and CAD. Says she saw Dr. Santana yesterday and he raised her spironolactone to 100mg, which she takes PRN. She was seen in [facility] 2 weeks ago for LE edema [...] kidney disease) stage 3, GFR 30-59 ml/min ([facility]) Closed fracture of trochanter of femur (CMS/HCC) Clostridium difficile colitis Coronary arteriosclerosis Diffuse thyroid 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 thyrotoxicosis Fluid overload Dehydration Cortical age-related cataract of left eye COVID-19 Displacement of lumbar intervertebral disc without myelopathy Edema of lower extremity Edema Orthopnea Dyspnea Endogenous obesity Essential tremor Chronic diastolic heart failure, NYHA class 2 ([facility]) H/O gastric bypass Gouty arthropathy Gastroesophageal reflux [...] In the past she was admitted to [facility] in 2019 with fluid overload [...] reviewed and a (more content not included)... [facility] 07-03-2023 Progress note Note Date/Time July 03, 2023 12:18pm [facility] [address] [place] [address] Nephrology Progress Note Signed Patient: Mabel Moser MR#: [id number] : 1960 Acct:[id number] Age/Sex: 63 / F Adm Date: 4 Loc: Room: [address] [place] [address] Type: ADM IN Attending Dr: Jim Randhawa [...] 50 Mg Tablet) 150 mg PO QHS [facility] Stop: 06/29/24 21:59 Last Admin: 07/02/23 21:00 Dose: 150 mg Aripiprazole (Aripiprazole 2 Mg Tablet) 2 mg PO DAILY [facility] Stop: 06/29/24 08:59 Last Admin: 07/03/23 08:13 Dose: 2 mg Bisacodyl (Bisacodyl 5 Mg Tablet.) 10 mg PO DAILY PRN PRN Reason: Constipation Stop: 06/28/24 21:34 Bumetanide (Bumetanide 1 Mg/4 Ml Vial) 1 mg IV-PUSH BID@0800,1600 [facility] Stop: 06/29/24 07:59 Last Admin: 07/03/23 08:14 Dose: 1 mg Calcium Acetate (Calcium Acetate 667 Mg Capsule) 667 mg PO BID.WITH.MEALS [facility] Stop: 06/29/24 07:59 Last Admin: 07/03/23 08:13 Dose: 667 mg Duloxetine HCl (Duloxetine 60 Mg Capsule.) 120 mg PO DAILY [facility] Stop: 06/29/24 08:59 Last Admin: 07/03/23 08:13 Dose: 120 mg Fentanyl (Fentanyl Patch 100 Mcg/Hour Patch.Td72) 100 mcg TRANSDERML Q72H [facility]; Protocol Last Admin: 07/03/23 08:12 Dose: 100 mcg Ferrous Sulfate (Ferrous Sulfate 324 Mg Tablet.Dr) 324 mg PO DAILY [facility] Stop: 06/29/24 08:59 Last Admin: 07/03/23 08:13 Dose: 324 mg Gabapentin (Gabapentin 100 Mg Capsule) 100 mg PO TID [facility] Stop: 06/29/24 08:59 Last Admin: 07/03/23 08:13 Dose: 100 mg Guaifenesin/Dextromethorphan (Guaif/Dextromethorphan Syrup 10 Ml Udc) 10 ml PO Q8H PRN PRN Reason: Cough Stop: 06/28/24 21:34 Heparin Sodium (Porcine) (Heparin 5,000 Unit/Ml Vial) 5,000 unit SUBCUT Q12HR [facility] Stop: 06/29/24 08:59 Last Admin: 07/03/23 08:14 Dose: 5,000 unit Levothyroxine Sodium (Levothyroxine 100 Mcg Tablet) 100 mcg PO DAILY@0630 [facility] Stop: 06/29/24 06:29 Last Admin: 07/03/23 06:23 Dose: 100 mcg Linaclotide (Linaclotide 290 Mcg Capsule) 290 mcg PO Q48HR [facility] Stop: 06/29/24 08:59 Last Admin: 07/02/23 08:59 Dose: 290 mcg Liothyronine Sodium (Liothyronine 25 Mcg Tablet) 25 mcg PO DAILY@0630 [facility] Stop: 06/29/24 10:59 Last Admin: 07/03/23 06:23 Dose: 25 mcg Loratadine (Loratadine 10 Mg Tablet) 10 mg PO DAILY PRN PRN Reason: Allergy Symptoms Stop: 06/29/24 06:54 Melatonin (Melatonin 5 Mg Tablet) 5 mg PO QHS PRN PRN Reason: Insomnia Stop: 06/28/24 21:34 Metoprolol Tartrate (Metoprolol Tartrate 25 Mg Tablet) 25 mg PO BID [facility] Stop: 06/29/24 20:59 Last Admin: 07/03/23 08:14 [...] <Electronically signed by Raeann Kirkpatrick MD> 07/03/23 5096 [facility] Work Phone: 1([phone] 368-491701-07-2024 Progress note Author Jim Randhawa [facility] July 02, 2023 11:26am Note Date/Time July 02, 2023 11 :26am [facility] [address] [place] [address] Hospitalist Progress Note Signed Patient: Mabel Moser MR#: [id number] : 1960 Acct:[id number] Age/Sex: 63 / F Adm Date: 4 Loc: 3T Room: [address] [place] [address] Type: ADM IN Attending Dr: Jim Randhawa [...] Tablet PO 06/29/24 20:59 25 mg BID [facility] Administration Ondansetron HCl 4 mg 06/29/23 21:35 [...] signed by Jim Randhawa DO> 07/02/23 1126 [facility] Work Phone: 1([phone] 218-125101-07-2024 Progress note Author Los Grissom [facility] July 02, 2023 10:42am Note Date/Time July 02, 2023 10 :42am [facility] [address] [place] [address] Nephrology Progress Note Signed Patient: Mabel Moser MR#: [id number] : 1960 Acct:[id number] Age/Sex: 63 / F Adm Date: 4 Loc: Room: [address] [place] [address] Type: ADM IN Attending Dr: Jim Randhawa [...] Mg/4 Ml Vial) 1 mg IV-PUSH BID@0800,1600 [facility] Stop: 06/29/24 07:59 Last Admin: 07/02/23 08:55 Dose: 1 mg Calcium Acetate (Calcium Acetate 667 Mg Capsule) 667 mg PO BID.WITH.MEALS [facility] Stop: 06/29/24 07:59 Last Admin: 07/02/23 08:55 Dose: 667 mg Duloxetine HCl (Duloxetine 60 Mg Capsule.) 120 mg PO DAILY [facility] Stop: 06/29/24 08:59 Last Admin: 07/02/23 08:59 Dose: 120 mg Fentanyl (Fentanyl Patch 100 Mcg/Hour Patch.Td72) 100 mcg TRANSDERML Q72H [facility]; Protocol Last Admin: 06/30/23 09:31 Dose: 100 mcg Ferrous Sulfate (Ferrous Sulfate 324 Mg Tablet.) 324 mg PO DAILY [facility] Stop: 06/29/24 08:59 Last Admin: 07/02/23 08:55 Dose: 324 mg Gabapentin (Gabapentin 100 Mg Capsule) 100 mg PO TID [facility] Stop: 06/29/24 08:59 Last Admin: 07/02/23 08:55 Dose: 100 mg Guaifenesin/Dextromethorphan (Guaif/Dextromethorphan Syrup 10 Ml Udc) 10 ml PO Q8H PRN PRN Reason: Cough Stop: 06/28/24 21:34 Heparin Sodium (Porcine) (Heparin 5,000 Unit/Ml Vial) 5,000 unit SUBCUT Q12HR [facility] Stop: 06/29/24 08:59 Last Admin: 07/02/23 08:55 Dose: 5,000 unit Levothyroxine Sodium (Levothyroxine 100 Mcg Tablet) 100 mcg PO DAILY@0630 [facility] Stop: 06/29/24 06:29 Last Admin: 07/02/23 05:48 Dose: 100 mcg Linaclotide (Linaclotide 290 Mcg Capsule) 290 mcg PO Q48HR [facility] Stop: 06/29/24 08:59 Last Admin: 07/02/23 08:59 Dose: 290 mcg Liothyronine Sodium (Liothyronine 25 Mcg Tablet) 25 mcg PO DAILY@0630 [facility] Stop: 06/29/24 10:59 Last Admin: 07/02/23 05:48 Dose: 25 mcg Loratadine (Loratadine 10 Mg Tablet) 10 mg PO DAILY PRN PRN Reason: Allergy Symptoms Stop: 06/29/24 06:54 Melatonin (Melatonin 5 Mg Tablet) 5 mg PO QHS PRN PRN Reason: Insomnia Stop: 06/28/24 21:34 Metoprolol Tartrate (Metoprolol Tartrate 25 Mg Tablet) 25 mg PO BID [facility] Stop: 06/29/24 20:59 Last Admin: 07/02/23 08:55 Dose: 25 mg Ondansetron HCl (Ondansetron 4 Mg/2 Ml Vial) 4 mg IV-PUSH Q8H PRN PRN Reason: Nausea And Vomiting Stop: 06/28/24 21:34 Oxycodone/Acetaminophen (Oxycodone/Acetaminophen 5-325 Mg Tablet) 2 tab PO Q6H PRN PRN Reason: Pain Last Admin: 07/02/23 02:00 Dose: 2 tab Pantoprazole Sodium (Pantoprazole 40 Mg Tablet.Dr) 40 mg PO BID [facility] Stop: 06/29/24 08:59 Last Admin: 07/02/23 08:55 Dose: 40 mg Primidone (Primidone 50 Mg Tablet) 100 mg PO HS [facility] Stop: 06/29/24 21:59 Last Admin: 07/01/23 21:21 Dose: 100 mg Sevelamer Carbonate (Sevelamer Carbonate 800 Mg Tablet) 800 mg PO TID.WITH.MEALS [facility] Stop: 06/29/24 11:59 Last Admin: 07/02/23 08:55 [...] signed by MD Los Grissom> 07/02/23 1042 [facility] Work Phone: 1(766) 694-290201-06-2024 Progress note Author Jim Randhawa [facility] July 01, 2023 1:52pm Note Date/Time July 01, 2023 1: 37pm [facility] [address] [place], [place] [id number] Hospitalist Progress Note Signed Patient: Mabel Moser MR#: [id number] : 1960 Acct:[id number] Age/Sex: 63 / F Adm Date: 4 Loc: Room: [address] [place] [address] Type: ADM IN Attending Dr: Jim Randhawa [...] signed by Jim Randhawa DO> 07/01/23 1352 [facility] Work Phone: 1([phone]) 533-451601-06-2024 Progress note Author Los Grissom [facility] July 01, 2023 10:16am Note Date/Time July 01, 2023 10 :16am [facility] [address] [place], [place] [id number] Nephrology Progress Note Signed Patient: Mabel Moser MR#: [id number] : 1960 Acct:[id number] Age/Sex: 63 / F Adm Date: 4 Loc: Room: [address] [place] [address] Type: ADM IN Attending Dr: Jim Randhawa [...] 50 Mg Tablet) 150 mg PO QHS [facility] Stop: 06/29/24 21:59 Last Admin: 06/30/23 21:17 Dose: 150 mg Aripiprazole (Aripiprazole 2 Mg Tablet) 2 mg PO DAILY [facility] Stop: 06/29/24 08:59 Last Admin: 07/01/23 08:21 Dose: 2 mg Bisacodyl (Bisacodyl 5 Mg Tablet.Dr) 10 mg PO DAILY PRN PRN Reason: Constipation Stop: 06/28/24 21:34 Bumetanide (Bumetanide 1 Mg/4 Ml Vial) 1 mg IV-PUSH BID@0800,1600 [facility] Stop: 06/29/24 07:59 Last Admin: 07/01/23 08:21 Dose: 1 mg Calcium Acetate (Calcium Acetate 667 Mg Capsule) 667 mg PO BID.WITH.MEALS [facility] Stop: 06/29/24 07:59 Last Admin: 07/01/23 08:20 Dose: 667 mg Duloxetine HCl (Duloxetine 60 Mg Capsule.Dr) 120 mg PO DAILY [facility] Stop: 06/29/24 08:59 Last Admin: 07/01/23 08:20 Dose: 120 mg Fentanyl (Fentanyl Patch 100 Mcg/Hour Patch.Td72) 100 mcg TRANSDERML Q72H [facility]; Protocol Last Admin: 06/30/23 09:31 Dose: 100 mcg Ferrous Sulfate (Ferrous Sulfate 324 Mg Tablet.) 324 mg PO DAILY [facility] Stop: 06/29/24 08:59 Last Admin: 07/01/23 08:20 Dose: 324 mg Gabapentin (Gabapentin 100 Mg Capsule) 100 mg PO TID [facility] Stop: 06/29/24 08:59 Last Admin: 07/01/23 08:20 Dose: 100 mg Guaifenesin/Dextromethorphan (Guaif/Dextromethorphan Syrup 10 Ml Udc) 10 ml PO Q8H PRN PRN Reason: Cough Stop: 06/28/24 21:34 Heparin Sodium (Porcine) (Heparin 5,000 Unit/Ml Vial) 5,000 unit SUBCUT Q12HR [facility] Stop: 06/29/24 08:59 Last Admin: 07/01/23 08:21 Dose: 5,000 unit Levothyroxine Sodium (Levothyroxine 100 Mcg Tablet) 100 mcg PO DAILY@0630 [facility] Stop: 06/29/24 06:29 Last Admin: 07/01/23 05:46 Dose: 100 mcg Linaclotide (Linaclotide 290 Mcg Capsule) 290 mcg PO Q48HR [facility] Stop: 06/29/24 08:59 Last Admin: 06/30/23 09:33 Dose: 290 mcg Liothyronine Sodium (Liothyronine 25 Mcg Tablet) 25 mcg PO DAILY@0630 [facility] Stop: 06/29/24 10:59 Last Admin: 07/01/23 05:46 Dose: 25 mcg Loratadine (Loratadine 10 Mg Tablet) 10 mg PO DAILY PRN PRN Reason: Allergy Symptoms Stop: 06/29/24 06:54 Melatonin (Melatonin 5 Mg Tablet) 5 mg PO QHS PRN PRN Reason: Insomnia Stop: 06/28/24 21:34 Metoprolol Tartrate (Metoprolol Tartrate 25 Mg Tablet) 25 mg PO BID [facility] Stop: 06/29/24 20:59 Last Admin: 07/01/23 08:20 [...] signed by MD Los Grissom> 07/01/23 1016 [facility] Work Phone: 1([phone]) 920-828001-05-2024 Progress note Author Jim Randhawa [facility] June 30, 2023 1:13pm Note Date/Time June 30, 2023 1: 13pm [facility] [address] [place] [address] Hospitalist Progress Note Signed Patient: Mabel Moser MR#: [id number] : 1960 Acct:[id number] Age/Sex: 63 / F Adm Date: 4 Loc: Room: [address] [place] [address] Type: ADM IN Attending Dr: Jim Randhawa [...] <Electronically signed by Jim Randhawa DO> 06/30/23 7715 [facility] Work Phone: 1([phone] 749-129301-05-2024 Consult note Author Los Grissom [facility] June 30, 2023 10:45am Note Date/Time June 30, 2023 10 :26am [facility] [address] [place] [address] Nephrology Consult Note Signed Patient: Mabel Moser MR#: [id number] : 1960 Acct:[id number] Age/Sex: 63 / F Adm Date: 4 Loc: Room: [address] [place] [address] Type: ADM IN Attending Dr: Jim Randhawa [...] and no additional complaints, except as documented [facility] Medical History CAD (coronary artery disease) Concepcion [...] 50 Mg Tablet) 150 mg PO QHS [facility] Stop: 06/29/24 21:59 Aripiprazole (Aripiprazole 2 Mg Tablet) 2 mg PO DAILY [facility] Stop: 06/29/24 08:59 Last Admin: 06/30/23 09:30 Dose: 2 mg Bisacodyl (Bisacodyl 5 Mg Tablet.) 10 mg PO DAILY PRN PRN Reason: Constipation Stop: 06/28/24 21:34 Bumetanide (Bumetanide 1 Mg/4 Ml Vial) 1 mg IV-PUSH BID@0800,1600 [facility] Stop: 06/29/24 07:59 Last Admin: 06/30/23 09:31 Dose: 1 mg Calcium Acetate (Calcium Acetate 667 Mg Capsule) 667 mg PO BID.WITH.MEALS [facility] Stop: 06/29/24 07:59 Last Admin: 06/30/23 09:30 Dose: 667 mg Duloxetine HCl (Duloxetine 60 Mg Capsule.) 120 mg PO DAILY [facility] Stop: 06/29/24 08:59 Last Admin: 06/30/23 09:30 Dose: 120 mg Escitalopram Oxalate (Escitalopram 20 Mg Tablet) 20 mg PO DAILY [facility] Stop: 06/29/24 08:59 Last Admin: 06/30/23 09:31 Dose: 20 mg Fentanyl (Fentanyl Patch 100 Mcg/Hour Patch.Td72) 100 mcg TRANSDERML Q72H [facility]; Protocol Last Admin: 06/30/23 09:31 Dose: 100 mcg Ferrous Sulfate (Ferrous Sulfate 324 Mg Tablet.) 324 mg PO DAILY [facility] Stop: 06/29/24 08:59 Last Admin: 06/30/23 09:31 Dose: 324 mg Gabapentin (Gabapentin 100 Mg Capsule) 100 mg PO TID [facility] Stop: 06/29/24 08:59 Last Admin: 06/30/23 09:31 Dose: 100 mg Guaifenesin/Dextromethorphan (Guaif/Dextromethorphan Syrup 10 Ml Udc) 10 ml PO Q8H PRN PRN Reason: Cough Stop: 06/28/24 21:34 Heparin Sodium (Porcine) (Heparin 5,000 Unit/Ml Vial) 5,000 unit SUBCUT Q12HR [facility] Stop: 06/29/24 08:59 Last Admin: 06/30/23 09:32 Dose: 5,000 unit Levothyroxine Sodium (Levothyroxine 100 Mcg Tablet) 100 mcg PO DAILY@0630 [facility] Stop: 06/29/24 06:29 Last Admin: 06/30/23 05:55 Dose: 100 mcg Linaclotide (Linaclotide 290 Mcg Capsule) 290 mcg PO Q48HR [facility] Stop: 06/29/24 08:59 Last Admin: 06/30/23 09:33 Dose: 290 mcg Liothyronine Sodium (Liothyronine 25 Mcg Tablet) 25 mcg PO DAILY [facility] Stop: 06/29/24 08:59 Loratadine (Loratadine 10 Mg [...] 40 Mg Tablet.Dr) 40 mg PO BID [facility] Stop: 06/29/24 08:59 Last Admin: 06/30/23 09:31 [...] signed by MD Los Grissom> 06/30/23 1045 [facility] Work Phone: 1(485) 286-645601-04-2024 History and physical note Author Beatriz Oh [facility] June 29, 2023 9:51pm Note Date/Time June 29, 2023 9: 47pm [facility] [address] [place] [address] Hospitalist H&P Signed Patient: Mabel Moser MR#: [id number] : 1960 Acct:[id number] Age/Sex: 63 / F Adm Date: 4 Loc: Room: [address] [place] [address] Type: ADM IN Attending Dr: Papito Garces [...] She denies having dysuria, hematuria, or frequency. [facility] Medical History CAD (coronary artery disease) [place] filter in place Hypertension Surgical History History [...] mg PO BID 08/31/18 [History Confirmed 10/28/22] sivtiapm-krczmyb-mpox-iron fum 18 mg-folic 600 mcg-vit K 80 [...] TID PRN Edema 10/28/22 [History Confirmed 10/28/22] jkjhzrtyri-ddqqfygdzgiaj-zetpcpwu 50 mg-325 mg-40 mg capsule 1 cap [...] signed by Beatriz Oh MD> 06/29/23 215 [facility] Work Phone: 1(348) 599-923110-10-2023 Evaluation note* Encounter Date Diagnosis Assessment Notes [...] G43.519) Advised the patient to follow with [facility] neurology clinic Mar, Chronic kidney disea se, [...] Hyperphosphatemia (ICD-10 - E83.39) Continue [employer] with [employer] Other [id number] NoteRemains stable without worsening symptomsUnMercy Health [facility]08-30-2023 NoteCoronary artery disease is stable Continue GDMT continue risk factor modifications- heart healthy diet, regular exercise as tolerated and continue all medications.[facility] 02-22-2023 NoteNYHC II Continue GDMT- entresto- metoprolol and aldactone have been dc's r/t hypotension. Diuretic therapy- bumex 2 mg bid- Monitor daily weights, I&O, fluid restriction 1.5-2L/day, renal function and electrolytes- please maintain K+>4 and Mg > 2UnMercy Health [facility] 02-22-2023 NoteRCRI- 0???points Class I Risk 3.9???% 30-day risk of , DC, or cardiac arrest From a cardiology perspective pt may proceed with Total knee arthroplasty with Dr Dennis, she is a low to moderate risk for a low to mod risk orthopedic surgery. She does not take any Aspirin, or anticoagulation. Please monitor hemodynamics carefully and prevent any major fluid shifts.[facility]08-30-2023 NoteUTP CARDIOLOGY PROGRESS NOTE HPI: Mabel Moser is a 62 y.o. female here for pre surgery risk stratification Patient here for 2 mo follow up pulmonary hypertension and hypertension. She was admitted to [facility] twice this past month. She needs cleared [...] is alert and or (more content not included)...[facility]08-30-2023 NotePatient here for 2 mo follow up pulmonary hypertension and hypertension. She was admitted to [facility] twice this past month. She needs cleared for knee replacement surgery with Dr. Dennis. Denies chest pain, lightheadedness, and palpitations. Says SOB is improving. Review of Systems Constitutional: Positive for malaise/fatigue. Cardiovascular: Positive for dyspnea on exertion (improving). Musculoskeletal: Positive for arthritis, back pain and joint pain. All other systems reviewed and are negative.[facility] 02-16-2023 NoteSubjective: Patient ID: Mabel Moser is [...] History: Diagnosis Date CHF (congestive heart failure) ([facility] Coronary artery disease Heart valve disease There [...] to proceed with surgery. Oneal Downey, M3 [facility] 02/16/23 As the teaching physician, I have personally performed or re-performed the history of present illness, physical exam and medical decision-making activities of the encounter and verified the medical student's documentation. I made pertinent changes as necessary to ensure accurate documentation. Additional Comments: [facility]07-21-2023 NoteData Mabel Moser 1960 Chief Complaint [...] physical therapy specifically wasdoing aquatic therapy, at [facility] with mild improvement. patient has had injections in the past, and did have some improvement however feels that getting significant improvement with these. She is interested in considering surgical intervention. Of Note, she did have a R. Total knee arthroplasty about 8 years at [facility]. Patient is also complaining of Left hip pain that worsened about a year ago after she had a fall. She did have x-rays completed after this, and was told that she had a chip off of her bone. . She saw Dr. Barajas at [facility] who recommended continiues conservative management. Hip pain rated as a 4-5/10. Most of her pain on the outer aspect of the hip. No prior injections or focused PT for the hip. Past Medical History: Diagnosis Date CHF (congestive heart failure) [facility] Coronary artery disease Heart valve disease History [...] in detail including differentia (more content not included)...[facility]06-22-2023 Note [place] [facility] Subjective Mabel Moser is [...] In the past she was admitted to [facility] in 2019 with fluid overload [...] not ill-appearing. HENT: H (more content not included)...[facility]06-07-2023 NotePt insists right subclavian chest port is accessed for procedure. 4CD RN at bedside to access. RN is not able to access. Li RN CVL spoke with Dr Hidalgo and pt can go to lab aide without IV access for RHC.[facility]06-07-2023 NotePatient: Mabel Moser Procedure Information Date/Time: 11/30/22 1300 Procedure: Right heart cath Location: [facility] INTERVENTIONAL RADIOLOGY RN 3 / [facility] VASCULAR [facility] (Cath) Providers: Benjie Hidalgo [...] products. Plan discussed with fellow. Additional Equipment [facility]UnMer[facility]05-15-2023 [facility] [place] [facility] Subjective Mabel Moser is a 62 y.o. year old female patient being seen for 2 week follow up per Sofie Bernard CNP. She says since she was last seen on 10/28, Dr. Santana increased her Entresto to 97-103mg bid, metoprolol to 50mg TID, and hydralazine to 100mg TID. Says she was in [facility] ED again last Monday with a BP [...] In the past she was admitted to [facility] in 2019 with fluid overload [...] is no distension. Pal (more content not included)...[facility]05-05-2023 NoteHeadaches today and to be evaluated in ED- worst H/A I have ever had. [facility]05-05-2023 NoteCoronary artery disease is stable Continue GDMTUnMercy Health [facility]05-05-2023 NoteHypertension is uncontrolled with c/o worst headache ever- recommended pt to be evaluated in [facility]Univers[facility]05-05-2023 NoteContinue to monitor with echoUnMercy [facility]05-05-2023 NoteNYHC- IV- SOB with rest and + Orthopnea, volume overloaded on exam despite Bumex 1 mg po tid and increased renal function. Noted elevated rt sided pressures with RVSP 59 and dilated RV on Echo 09/21/22- She has h/o PE in the past and currently on ASA. CR was increasing on labs noted 10/26/22- CR 1.68/BUN 45 at admit was 1.23/ 38 [facility]05-05-2023 NoteUTP CARDIOLOGY PROGRESS NOTE HPI: Mabel Moser is a 62 y.o. female here for hospital f/u Patient here for follow up [facility] ED on 10/24/2022 for fluid overload. She [...] in the morning, afternoon, and at bedtime. kmysfmlxxl-uwuxytzubwujv-wevo (Esgic) 50-325-40 mg capsule ihhvvapdtv-bznfnitdlqyha-ipckfmgi 50 mg-325 mg-40 mg capsule butorphanol (Stadol) [...] hypertension Hypertension is uncontrolle (more content not included)...[facility]05-05-2023 NotePatient here for follow up [facility] on 10/24/2022 for fluid overload. She [...] light-headedness. All other systems reviewed and are negative.[facility] 10-10-2022 NoteCardiovascular Medicine [facility] SUBJECTIVE Chief Complaint Patient presents with Congestive Heart Failure Re-establish care HPI Mabel Moser is a 62 y.o. female here to re-establish care. She was recently discharged from [facility] for fluid overload. Her weight went up [...] She follows with a kidney specialist at [facility]. Her leg swelling has improved but she [...] She has been admitted in 07/2018 to [facility] with dyspnea, fluid overload and was diuresed. [...] vitamin B12 deficiency Pulmona (more content not included)...[facility] 10-10-2022 NoteNew patient here to re-establish care. She was last seen in [address] Hidalgo. She was discharged 10/07/2022 from [facility] for fluid overload. Had echo 09/21/2022. Says PCP put her on Entresto a few months ago, and recently decreased her dose due to hyperkalemia per patient. Review of Systems Constitutional: Positive for malaise/fatigue. Cardiovascular: Positive for dyspnea on exertion, leg swelling and palpitations. Musculoskeletal: Positive for arthritis, back pain and joint pain. Neurological: Positive for light-headedness. All other systems reviewed and are negative.[facility] 09-27-2022 Evaluation note* Encounter Date Diagnosis [...] G43.519) Advised the patient to follow with [facility] neurology clinic [facility] [employer] Other 03-28-2023 NoteThe [facility] [id number] Evaluation note* Encounter Date Diagnosis Assessment Notes Treatment Notes Treatment Clinical Notes Jul, Contusion of right wrist, initial encounter (ICD-10 - S60.211A) Patient placed in cock up wrist splint. Activities 2-5 lbs ADLs [employer] Other 12-13-2022 NoteThe [facility] [id number] NoteThe [facility] [id number] NoteThe Community Memorial [id number] Evaluation note * Encounter Date Diagnosis Assessment [...] pressure. Advised the patient to follow-up with [facility] neurology clinic I will try to reach to Dr. Santana's office about fludrocortisone I would continue same blood pressure medications. Advised the patient to follow a low-salt diet and to monitor her blood pressure at home Mar, Migraine aura, persistent, intractable (ICD-10 - G43.519) Advised the patient to follow with [facility] neurology clinic [employer] Other 08-04-2022 NoteThe [facility] [id number] NoteThe [facility] [id number] Evaluation note* Encounter Date Diagnosis Assessment Notes [...] off all diuretics metolazone, spironolactone and bumetanide. [employer] Other Discharge summary Author Jim Randhawa [facility] July 03, 2023 3:03pm Note Date/Time July 03, 2023 2: 55pm [facility] [address] [place] [address] Discharge Summary Signed Patient: Mabel Moser MR#: [id number] : 1960 Acct:[id number] Age/Sex: 63 / F Adm Date: 4 Loc: Room: [address] [place] [address]: Jim Randhawa DO Copies to: [...] signed by Jim Randhawa, > 07/03/23 1503 [facility] Work Phone: Evaluation noteNo assessment information available [facility] Work Phone: Evaluation noteNo InformationNort [employer] Other Evaluation note* Diagnosis Onset Date Resolution Status Acute heart failure acute LEEANN (acute kidney injury) ac eyak Anemia chronic CKD (chronic kidney disease) stage 3, GFR 30-59 ml/min chronic Hypertension chronic [facility] Work Phone: Hisuthh general Narrative - Reported* Type Description Date [...] History COVID 05/2020 Hospitalization History COVID 04/2021 [employer] Other hisDemocravise general Narrative - Reported* Type Description Date [...] History COVID 05/2020 Hospitalization History COVID 04/2021 [employer] Other history general Narrative - Reported* Type [...] 04/2021 Hospitalization History ELEVATED POTASSIUM LEVEL 09/19/2022 [employer] Other Hospital Discharge instructions Additional Instructions Home health to manage: - PT/OT to eval and treat - Monitor VS routine - Dx. HTN - CHF assessments/education - Urinary assessments - Dx. CKD on LEEANN - Fall precautions - high fall riskSelect [facility] Work Phone: Summary Purpose Family History [...] content) DATE CREATED AUTHOR 01/14/2019 Ailyn Zepeda [facility] DATE CREATED AUTHOR AUTHOR'S ORGANIZ ATION 07/24/2021 [facility] DATE CREATED AUTHOR AUTHOR'S ORGANIZ ATION 01/17/2022 [facility] DATE CREATED AUTHOR AUTHOR'S ORGANIZ ATION 12/05/2022 [facility] DATE CREATED AUTHOR AUTHOR'S ORGANIZ ATION 02/10/2023 [facility] DATE CREATED AUTHOR AUTHOR'S ORGANIZ ATION 07/16/2023 [facility] DATE CREATED AUTHOR AUTHOR'S ORGANIZ ATION 07/19/2023 [facility] REASON FOR VISIT (unrecogniz ed section [...] BE BASED ON THE PRIMARY CLINICAL RECORDS. [facility] [employer] [facility]. provides no warranty or guarantee of the accuracy or completeness of information in this document.
[2023-07-27 17:57] LABS: Basophils Percent Auto 0.3 % (0.2-2.0); Eosinophils Absolute Auto 0.1 10^3/uL (0.0-0.7); Eosinophils Percent Auto 1.9 % (0.9-7.0); Hematocrit 29.8 % (36.0-48.0); Hemoglobin 9.2 g/dL (12.0-16.0); Immature Granulocytes Abs Auto 0.07 10^3/uL (0.00-0.03); Immature Granulocytes Pct Auto 0.9 % (0.0-0.5); Lymphocytes Absolute Auto 0.8 10^3/uL (1.2-3.8); Lymphocytes Percent Auto 10.8 % (20.5-60.0); Mean Corpuscular HGB Conc 30.9 g/dL (29.9-35.2); Mean Corpuscular Hemoglobin 31.3 pg (26.7-34.0); Mean Corpuscular Volume 101.4 fL (81.0-99.0); Mean Platelet Volume 9.3 fL (9.5-13.5); Monocytes Absolute Auto 0.6 10^3/uL (0.3-0.8); Neutrophils Absolute Auto 5.9 10^3/uL (1.4-6.5); Neutrophils Percent Auto 78.1 % (43.0-75.0); Platelet Count 247 10^3/uL (150-450); Red Blood Count 2.94 10^6/uL (4.20-5.40); Red Cell Distribution Width 13.6 % (11.0-15.0); White Blood Count 7.5 10^3/uL (4.0-11.0)
[2023-07-27 18:31] LABS: Troponin I High Sensitivity 6.2 pg/mL (4.0-51.3)
[2023-07-27] MEDS: HYDROMORPHONE HCL 0.5 MG/0.5 ML SYRINGE IV (18:32)
[2023-07-27 18:40] LABS: Alanine Aminotransferase 30 U/L (14-59); Albumin Globulin Ratio 0.9; Albumin Level 3.2 g/dL (3.4-5.0); Alkaline Phosphatase 213 U/L (46-116); Anion Gap 20.8; Aspartate Amino Transferase 41 U/L (15-37); BUN Creatinine Ratio 26.8; Bilirubin Total 0.3 mg/dL (0.2-1.0); Calcium 7.6 mg/dL (8.5-10.1); Carbon Dioxide 19.9 mmol/L (21.0-32.0); Chloride 99 mmol/L (98-107); Estimated GFR (African America 12 (>=60); Estimated GFR (Non-African Ame 10 (>=60); Globulin 3.6 g/dL; Glucose 88 mg/dL (74-106); Magnesium 1.8 mg/dL (1.8-2.4); Potassium 5.7 mmol/L (3.5-5.1); Sodium 134 mmol/L (136-145); Total Protein 6.8 g/dL (6.4-8.2)
[2023-07-27 19:02] LABS: Phosphorus 11.2 mg/dL (2.6-4.7)
[2023-07-27] MEDS: SEVELAMER CARBONATE 800 MG TABLET PO (20:17)
[2023-07-27] MEDS: APIXABAN 2.5 MG 2.5 EACH PO (20:17)
[2023-07-27] MEDS: PRAMIPEXOLE 1 MG TABLET PO (20:17)
[2023-07-27] MEDS: CALCIUM ACETATE 667 MG CAPSULE PO (20:17)
[2023-07-27] MEDS: Sacubitril-Valsartan [Entresto] 97-103 mg tablet 1 EACH PO (20:17)
[2023-07-27] MEDS: BUDESONIDE 0.5 MG/2 ML AMPULE NEB IH (20:40)
[2023-07-27 21:48] LABS: Bilirubin Urine NEGATIVE (NEGATIVE); Blood Urine NEGATIVE (NEGATIVE); Clarity Urine CLEAR (CLEAR); Color Urine LT. YELLOW (YELLOW); Glucose Urine UA NEGATIVE (NEGATIVE); Ketones Urine NEGATIVE (NEGATIVE); Leukocyte Esterase Urine NEGATIVE (NEGATIVE); Nitrite Urine NEGATIVE (NEGATIVE); Protein Urine NEGATIVE (NEG/TRACE); Urobilinogen Urine 0.2 EU/dL (0.2-1.0); pH Urine 5.5 (5.0-9.0)
[2023-07-27 21:58] LABS: WBC Urine 0-2 #/HPF (NONE SEEN)
[2023-07-27 21:59] LABS: Bacteria Urine NONE SEEN #/HPF (NONE SEEN); Cast Seen? NONE SEEN #/LPF (NONE SEEN); Crystals Seen? None Seen #/HPF (None Seen); Mucus Urine NONE SEEN (NONE SEEN); RBC Urine 0-2 #/HPF (0-2); Squamous Epithelial Cell Urine NONE SEEN #/LPF (NONE/RARE); Urine Culture Indicated NO
[2023-07-27] MEDS: PRIMIDONE 50 MG TABLET 150 MG PO (22:11)
[2023-07-27] MEDS: AMITRIPTYLINE 150 MG 300 EACH PO (22:12)
--- NOTE | 2023-07-27 23:50 | PC.NURSE ---
Pt somulent. resp 12. Pulse ox 93% on room air. Pt moved to room closer to the nurses station. Pt will move when name is called but did not open her eyes. pt does complain her legs hurt when legs elevated on pillows . Pt then returned to sleep.
[2023-07-28] VITALS (26 sets, daily range): BP systolic 75–134; BP diastolic 30–74; PULSE 78–98; RESP 10–20; TEMP 36.4–36.6; O2SAT 91–98
--- NOTE | 2023-07-28 | PC.NURSE ---
nurse finds many different medications in pt's belongings. Meds removed, placed in bottles and IDd before locking up in pts room. Security present when looking for more medications and 3 nurses present in room
--- NOTE | 2023-07-28 00:20 | PC.NURSE ---
Fentanyl patch dated 07/25 was removed from the rt upper arm. Pt remains somulent and does not move when patch removed. Resp nonlaboed and no sign of distress noted. Pt's tele continues to show SR in the 80s. Pulse ox 93-94% on room air. Resp 12-16.
[2023-07-28] MEDS: 0.9 % SODIUM CHLORIDE 500 ML IV (00:26)
--- NOTE | 2023-07-28 00:58 | PC.NURSE ---
IV fluids started via infusaport (port checked for blood return and flushed prior to starting fluids)
--- NOTE | 2023-07-28 01:00 | PC.NURSE ---
Pt's sats are 91% on room air. Resp 10. O2 applied at 2l per NC Sats up to 96 5
--- NOTE | 2023-07-28 01:05 | PC.NURSE ---
When entering the patients room at 2320, the [employer] PHOTO INSPECTOR, aide and RN entered the patients room to the patient slumped over sideways in bed, pie in her hair, tea spilled on floor and very obtunded. RN had to sternal rub patient to arouse. Patient admitted to putting bed rail down and walking around room prior to going to sleep. Nurses found pill bottles in purse that were not turned in to pharmacy earlier with her other home meds. Patient had percocet and xanax hidden in an OTC bottle labeled leg cramps . Pts pupils were sluggish but equal, bp 79/53, oxygen 93% on RA, pulse 82, resp 10. Nurses got nursing equipment records supervisor to the room, decided to move patient closer to nurses station.Security came up as well to search the room/bags. 500ml bolus started per physicians order, tele hosp was called and instructed to remove fentanyl patch, keep pt NPO due to cognitive state. Pt was placed on 2L NC due to low resp and pulse ox dropping. Nursing equipment records supervisor sat and monitored pt. Nurses found many medications in unlabeled containers including, tramadol, tizanidine,butorphanol nose spray, xanax and oxycodone. Meds have all been counted and locked up. Pt bp improved following bolus, lungs clear throughout.
[2023-07-28] MEDS: ALBUTEROL SULFATE 2.5 MG/3 ML VIAL NEB IH (04:26)
[2023-07-28 04:47] LABS: ABG PCO2 44.8 mmHg (35.0-45.0); Allen Test POSITIVE (POSITIVE); Base Excess ABG -8.4 mmol/L (-2.0-2.0); Oxygen Saturation ABG 97.7 %
[2023-07-28 04:48] LABS: Liters per Minute 2; O2 Mode NASAL CANNULA; Puncture Site L RADIAL
[2023-07-28 04:49] LABS: pH ABG 7.237 (7.350-7.450)
[2023-07-28 05:22] LABS: Basophils Percent Auto 0.5 % (0.2-2.0); Eosinophils Absolute Auto 0.1 10^3/uL (0.0-0.7); Eosinophils Percent Auto 2.1 % (0.9-7.0); Hematocrit 27.3 % (36.0-48.0); Hemoglobin 8.2 g/dL (12.0-16.0); Immature Granulocytes Abs Auto 0.05 10^3/uL (0.00-0.03); Immature Granulocytes Pct Auto 0.9 % (0.0-0.5); Lymphocytes Absolute Auto 0.9 10^3/uL (1.2-3.8); Lymphocytes Percent Auto 15.3 % (20.5-60.0); Mean Corpuscular Hemoglobin 30.6 pg (26.7-34.0); Mean Corpuscular Volume 101.9 fL (81.0-99.0); Mean Platelet Volume 9.4 fL (9.5-13.5); Monocytes Absolute Auto 0.4 10^3/uL (0.3-0.8); Monocytes Percent Auto 7.5 % (1.7-12.0); Neutrophils Absolute Auto 4.2 10^3/uL (1.4-6.5); Neutrophils Percent Auto 73.7 % (43.0-75.0); Platelet Count 216 10^3/uL (150-450); Red Blood Count 2.68 10^6/uL (4.20-5.40); Red Cell Distribution Width 13.3 % (11.0-15.0); White Blood Count 5.8 10^3/uL (4.0-11.0)
[2023-07-28 05:53] LABS: Alanine Aminotransferase 26 U/L (14-59); Albumin Globulin Ratio 0.8; Albumin Level 2.6 g/dL (3.4-5.0); Alkaline Phosphatase 185 U/L (46-116); Anion Gap 17.9; Aspartate Amino Transferase 30 U/L (15-37); BUN Creatinine Ratio 27.7; Bilirubin Total 0.3 mg/dL (0.2-1.0); Calcium 7.2 mg/dL (8.5-10.1); Carbon Dioxide 21.5 mmol/L (21.0-32.0); Chloride 102 mmol/L (98-107); Estimated GFR (African America 13 (>=60); Estimated GFR (Non-African Ame 11 (>=60); Globulin 3.1 g/dL; Glucose 82 mg/dL (74-106); Potassium 5.4 mmol/L (3.5-5.1); Sodium 136 mmol/L (136-145); Total Protein 5.7 g/dL (6.4-8.2)
--- NOTE | 2023-07-28 07:29 | P.DS_ITS ---
DS: Providers Provider Date of admission: 07/27/23 15:46 Primary care physician: Yuri Godinez MD Consults: 07/27/23 17:03 Occupational Therapy Eval and Treat Routine Reason for consultation: Only if needed for Rehab Has provider been notified: No Physical Therapy Eval and Treat Routine Reason for consultation: Eval and Treat Has provider been notified: No DS: Diagnosis Discharge Diagnosis (1) Acute kidney injury: Assessment and plan: Weakness due to fluid overload L Acute renal failure-2 times baseline creatinine Hyperkalemia Combined respiratory metabolic acidosis Hypotension Hyperphosphatemia Elevated liver function test Generalized anxiety disorder Lumbar radiculopathy Hypothyroidism DS: Summary Hospital Course Hospital Course: Patient was seen and evaluated in the office with increasing fatigue, fluid overload, her weight was up 12 pounds from previous weight in the office 1 week ago. Patient states she has been taking her medications appropriately did try increased dose of Bumex. With that not being effective she saw us in the office. She had a history of this in the past. So admitted her direct admission to the floor. On the floor was started on a Bumex drip which has been effective for her in the past but patient blood pressure dropped. So the Bumex drip was stopped. Sedation medications removed. Patient is more awake and alert this morning. Creatinine is slightly better. But with creatinine 2 times baseline and fluid overload she could possibly benefit from dialysis. Will discuss with transferring hospital to coordinate care. Transfer process initiated Time Spent with Patient Time attestation: Total time spent providing and/or coordinating discharge services: Time spent: greater than 30 minutes Exam Constitutional Vital Signs, click to edit/add: Last Vital Signs Temp 97.6 F 07/28/23 05:42 Pulse 98 H 07/28/23 06:21 Resp 14 07/28/23 05:42 BP 92/61 07/28/23 05:42 Pulse Ox 94 L 07/28/23 05:42 O2 Del Method Room Air 07/28/23 05:42 O2 Flow Rate 2 07/28/23 04:40 Documenting provider has reviewed patient's vital signs: yes Common normals: no apparent distress, average body habitus, oriented x3, healthy appearing, alert and well nourished General appearance: cooperative, comfortable and well developed Orientation/consciousness: Yes awake, Yes oriented to person and Yes oriented to place HENOH Common normals: normocephalic, nasal mucous membranes and turbinates normal and moist oral mucous membranes Chest Common normals: inspection of chest normal Respiratory Common normals: normal respiratory effort, no retractions and no use of accessory muscles Effort & inspection: able to speak in complete sentences and symmetric chest movement Cardio Common normals: regular rate, regular rhythm and no murmurs Back & Pelvis Lumbar spine/lower back: normal to inspection, ROM limited, pain with ROM, paraspinal muscle tenderness and paraspinal muscle spasm Other: positive facet loading bilat muscle strength 4/5 bilat LE with intact sensation Extremity Common normals: full ROM and normal capillary refill; abnormal to inspection (3+ edema) DS: Data Data Completed and Pending Labs on day of discharge: Labs from last 24 hours 07/28/23 07/28/23 07/27/23 04:25 04:22 21:25 WBC 5.8 RBC 2.68 L Hgb 8.2 L Hct 27.3 L MCV 101.9 H MCH 30.6 MCHC 30.0 RDW 13.3 Plt Count 216 MPV 9.4 L Neut % (Auto) 73.7 Lymph % (Auto) 15.3 L [place] % (Auto) 7.5 Eos % (Auto) 2.1 Baso % (Auto) 0.5 Neut # (Auto) 4.2 Lymph # (Auto) 0.9 L [place] # (Auto) 0.4 Eos # (Auto) 0.1 Baso # (Auto) 0.0 Abs Immat Gran (auto) 0.05 H Imm/Tot Granulo (auto) 0.9 H Puncture Site L radial ABG pH 7.237 L* ABG pCO2 44.8 ABG pO2 117.0 H ABG HCO3 19.0 L ABG O2 Saturation 97.7 ABG Base Excess -8.4 L Spike Test Positive O2 Liters/Min 2 Sodium 136 Potassium 5.4 H Chloride 102 Carbon Dioxide 21.5 Anion Gap 17.9 BUN 118.0 H* Creatinine 4.26 H Est GFR ( Amer) 13 L Est GFR (Non-Af Amer) 11 L BUN/Creatinine Ratio 27.7 Glucose 82 Calcium 7.2 L Phosphorus Magnesium Total Bilirubin 0.3 AST 30 ALT 26 Alkaline Phosphatase 185 H Troponin I High Sens NT-Pro-B Natriuret Pep 505.0 Total Protein 5.7 L Albumin 2.6 L Globulin 3.1 Albumin/Globulin Ratio 0.8 Urine Color Lt. yellow Urine Clarity Clear Urine pH 5.5 Ur Specific [place] 1.010 Urine Protein Negative Urine Glucose (UA) Negative Urine Ketones Negative Urine Occult Blood Negative Urine Nitrite Negative Urine Bilirubin Negative Urine Urobilinogen 0.2 Ur Leukocyte Esterase Negative Urine RBC 0-2 Urine WBC 0-2 A Ur Squamous Epith Cells None seen Urine Crystals None seen Urine Bacteria None seen Urine Casts None seen Urine Mucus None seen Ur Culture Indicated? No 07/27/23 17:50 WBC 7.5 RBC 2.94 L Hgb 9.2 L Hct 29.8 L MCV 101.4 H MCH 31.3 MCHC 30.9 RDW 13.6 Plt Count 247 MPV 9.3 L Neut % (Auto) 78.1 H Lymph % (Auto) 10.8 L [place] % (Auto) 8.0 Eos % (Auto) 1.9 Baso % (Auto) 0.3 Neut # (Auto) 5.9 Lymph # (Auto) 0.8 L [place] # (Auto) 0.6 Eos # (Auto) 0.1 Baso # (Auto) 0.0 Abs Immat Gran (auto) 0.07 H Imm/Tot Granulo (auto) 0.9 H Puncture Site ABG pH ABG pCO2 ABG pO2 ABG HCO3 ABG O2 Saturation ABG Base Excess Spike Test O2 Liters/Min Sodium 134 L Potassium 5.7 H Chloride 99 Carbon Dioxide 19.9 L Anion Gap 20.8 BUN 122.0 H* Creatinine 4.55 H Est GFR ( Amer) 12 L Est GFR (Non-Af Amer) 10 L BUN/Creatinine Ratio 26.8 Glucose 88 Calcium 7.6 L Phosphorus 11.2 H* Magnesium 1.8 Total Bilirubin 0.3 AST 41 H ALT 30 Alkaline Phosphatase 213 H Troponin I High Sens 6.2 NT-Pro-B Natriuret Pep 348.0 Total Protein 6.8 Albumin 3.2 L Globulin 3.6 Albumin/Globulin Ratio 0.9 Urine Color Urine Clarity Urine pH Ur Specific [place] Urine Protein Urine Glucose (UA) Urine Ketones Urine Occult Blood Urine Nitrite Urine Bilirubin Urine Urobilinogen Ur Leukocyte Esterase Urine RBC Urine WBC Ur Squamous Epith Cells Urine Crystals Urine Bacteria Urine Casts Urine Mucus Ur Culture Indicated? Discharge Plan Discharge Disposition: [facility]
[2023-07-28] MEDS: CALCIUM ACETATE 667 MG CAPSULE PO (08:15)
[2023-07-28] MEDS: APIXABAN 2.5 MG 2.5 EACH PO (08:16)
[2023-07-28] MEDS: ARIPIPRAZOLE 2 MG TABLET PO (08:16)
[2023-07-28] MEDS: SEVELAMER CARBONATE 800 MG TABLET PO (08:16)
[2023-07-28] MEDS: DULOXETINE HCL 60 MG CAPSULE.DR 120 MG PO (08:17)
[2023-07-28] MEDS: LIOTHYRONINE SODIUM 25 MCG TABLET PO (08:18)
[2023-07-28] MEDS: Sacubitril-Valsartan [Entresto] 97-103 mg tablet 1 EACH PO (08:18)
[2023-07-28] MEDS: CLINDAMYCIN PHOSPHATE/D5W 600 MG/50 ML PIGGYBACK 100 MG IV ×2 (08:29→13:03)
--- OUTSIDE RECORDS SUMMARY | 2023-07-28 08:32 | XMS_ITS | CCD ---
Author Name Unknown Address [address] [place] [address] Organization [facility] Care Team Providers Care Location Analyst Name Role Phone NIRMAL LEWIS Admitting Unavailable [...] Unavailable MD Angle Santana Primary Care Provider [phone] WALLY [facility]m Emergency Provider [phone] ROBERT JOHNSTON Attending Unavailable ROBERT JOHNSTON Admitting [...] ., [employer] Consulting Unavailkalpana e SHAIKH eDepak LAIRD Consulting Unavailable HOY ., DR BARBOUR [...] Unavailable MD Angle Santana Primary Care Provider [phone] MD Beatriz Oh Admit Provider DO Jim [...] sources) Amoxicillin Drug Allergy 10-29-19 23 Unknown, [facility] (5 sources) Amoxicillin / Clavulanate Drug Allergy Unknown [facility] Other (12 sources) Povidone-Iodine; Translations: [POVIDONE-IODINE] Drug Allergy 10-11-19 23 Unknown, [facility] (9 sources) Sulfamethoxazole / Trimethoprim Drug Allergy Unknown [facility] Other (1 source) sulfaSALAzine Drug Allergy Unknown [facility] Other (7 sources) Amoxicillin / Clavulanate Drug Allergy 11-26-19 13 Unknown [facility] (1 source) Bumetanide Drug Allergy 03-22-20 16 [facility] (1 source) Cephalexin Drug Allergy 01-15-20 14 [facility] (2 sources) gabapentin; Translations: [GABAPENTIN] Drug Allergy 08-19-19 22 [facility] (3 sources) Povidone-Iodine Drug Allergy 11-26-19 13 [facility] (1 source) pregabalin; Translations: [LYRICA] Drug Allergy 08-19-19 22 [facility] (6 sources) Sulfonamides (Antibiotic); Translations: [SULFA (SULFONAMIDE ANTIBIOTICS)] Drug allergy (disorder) 11-26-19 13 Rash [facility] (1 source) Sulfonamide Drug allergy Unknown [facility] Other (7 sources) Substance with sulfonamide structure and antibacterial mechanism of action (substance) Drug allergy Unknown [facility] Other (3 sources) Clavulanate; Translations: [clavulanic acid] Drug Allergy 10-29-19 Diarrhea [facility] (1 source) Ciprofloxacin Drug Allergy 05-26-20 [facility] (1 source) Cephalexin; Translations: [CEPHALEXIN] Drug Allergy 06-13-20 14 [facility] (1 source) Ciprofloxacin; Translations: [CIPROFLOXACIN] Drug Allergy 10-11-19 23 [facility] (1 source) Iodine; Translations: [IODINE] Drug Allergy 11-28-19 [facility] (1 source) pregabalin; Translations: [PREGABALIN] Drug Allergy 10-11-19 23 [facility] (1 source) Sulfamethoxazole / Trimethoprim; Translations: [SULFAMETHOXAZOLE-T RIMETHOPRIM] Drug Allergy 11-28-19 [facility] (1 source) AMOXICILLIN-POT CLAVULANATE; Translations: [AMOXICILLIN-POT CLAVULANATE] Propensity to adverse reactions to drug (disorder) 06-13-20 [facility] (1 source) Amoxicillin Drug Allergy 10-29-19 [facility] (1 source) Povidone-Iodine Drug Allergy 10-29-19 [facility] (1 source) Sulfonamides (Antibiotic) Drug allergy (disorder) 10-29-19 [facility] Medications Current Medications Medication Drug [...] Start: 10-28-2022 take 1 capsule by mo [facility] once daily Linaclotide (Linzess) 290 mcg [...] 31, 2018 12:00am take [facility] tablet [facility] daily as needed Ondansetron 4 MG [...] 10:41am Start: 08-31-2018 take 1 tablet by [facility] once daily Pantoprazole (Protonix) 20 mg [...] 04, 2018 6:59am take 2 tablets by [facility] every twenty-four hours Primidone 50 MG 2 [...] needed Orally every 4 hrs PRN Active [id number] 200 actuat albuterol 0.09 mg/actuat metered dose [...] meals Orally Four times a day Active Jx-Ubegvdq-Rwk-Iron Fm-Fa-Vitk (Multi For Her) 18 mg iron-600 mcg-80 mcg Tablet (2 sources) Start: 08-31-2018 End: 06-30-2023 take 1 tablet by mouth once daily Gs-Dbnzmdk-Mxz-Iron Fm-Fa-Vitk (Multi For Her) 18 mg iron-600 mcg-80 mcg Tablet Discontinued 1 TAB PO Daily August 31, 2018 12:00am June 30, 2023 12:26am Start: 08-31-2018 take 1 tablet by joseph th once daily On-Htuufhc-Flg-Iron Fm-Fa-Vitk (Multi For Her) 18 mg iron-600 [...] disease (3 sources) Atherosclerotic heart disease of [place] coronary artery without angina pectoris; Translations: [ASHD ASSINIBOINE AND [place] CA W/O ANGINA PECTORIS] Onset: 3 Chronic [...] medical drugs (1 source) Adverse effect of fgobafhpvih-aiennfvtlg-a nzyme inhibitors, initial encounter; Translations: [ADVERSE EFFECT [...] aftercare (2 sources) Polypharmacy ; Translations: [Other intermediate (current) drug therapy] 09-04-2018 Episodic Other aftercare (1 source) Other intermediate (current) drug therapy; Translations: [OTH RETIREMENT 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 THERAPY] Onset: 3 Episodic Other [...] Range Facility Office Visiton 07-13-2023 Follow-up visit [id number] Loren Moser 1960 F Date Provider Department Center 07/13/2023 BENJIE LERMA Family History Family history unknown: Yes Level of Service:48975 ME OFFICE/OUTPATIENT ESTABLISHED LOW MDM 20 MIN Normal [facility] Absolute reticulocyte countO rdered By: Los Grissom on 07-03-2023 Reticulocytes (Bld) [#/Vol] 0.039 10*6/uL 0.024-0.08 4 [facility] Basic Metabolic Panelon Creatinine Clr Calc Pharmacy 25.88 Normal [facility] Comment on above: Performed By: #### M G, [id number], RETIC, FE and TIBC, JOSE, BMP #### [facility] [address] GFR/1.73 sq M.predicted MDRD (S/P/Bld) [Vol rate/Area] 23.348 mL/min/{1.73_m2} Normal [facility] Comment on above: Performed By: #### Nadya G, [id number], RETIC, FE and TIBC, JOSE, BMP #### [facility] [address] Calcium [Mass/volume] in Ser um or PlasmaOrdered By: Jim Randhawa on 07-03-2023 Calcium [Mass/Vol] 8.3 mg/dL Low 8.6-10.3 [facility] Comment on above: Performed By: #### Nadya G, [id number], RETIC, FE and TIBC, JOSE, BMP #### [address] Carbon dioxide, total [Moles /volume] in Serum or PlasmaOrdered By: Jim Randhawa on 07-03-2023 CO2 [Moles/Vol] 20.4 mmol/L Low 21.0-31.0 [facility] Comment on above: Performed By: #### Nadya G, [id number], RETIC, FE and TIBC, JOSE, BMP #### [address] Chloride [Moles/volume] in S andrea or PlasmaOrdered By: Jim Randhawa on 07-03-2023 Chloride [Moles/Vol] 106 mmol/L Normal 98-107 [facility] Comment on above: Performed By: #### Nadya G, [id number], RETIC, FE and TIBC, JOSE, BMP #### [facility] [address] Creatinine [Mass/volume] in Serum or PlasmaOrdered By: Jim Randhawa on 07-03-2023 Creatinine [Mass/Vol] 2.32 mg/dL High 0.60-1.20 [facility] Comment on above: Performed By: #### Nadya G, [id number], RETIC, FE and TIBC, JOSE, BMP #### [facility] [address] [facility] echo transthoracicon ECH echo transthoracic [facility] [place] [address] [place] [address] Echocardiogram Signed Patient: Mabel Moser MR#: [id number] : 1960 Acct:[id number] Age/Sex: 63 / F ADM Date: 06/29/23 Loc: Room: [address] [place] [address] Type: DIS IN Attending Dr: Jim Randhawa DO Ordering Provider: Jim Randhawa DO Date of Service: 07/02/2301/16/859 [facility] echo transthoracic: swelling Copies to: MD [...] FS: 40.8 % Ao root area: 7.8 [id number] ap4: 8.4 cm TAPSE: 2.6 cm EDV(Teich): [...] By: Benjie Leach MD 07/03/23 1445 [facility] Ferritin [Mass/volume] in Se rum or PlasmaOrdered By: Los Grissom on 07-03-2023 Ferritin [Mass/Vol] 71.9 ng/mL Normal 11.0-306.8 [facility] Comment on above: Performed By: #### M G, [id number], RETIC, FE and TIBC, JOSE, BMP #### [facility] [address] [place] [address] Folate [Mass/volume] in Seru m or PlasmaOrdered By: Los Grissom on 07-03-2023 Folate [Mass/Vol] 11.1 ng/mL >5.9 [facility] Comment on above: Folate reference ran ge: >5.9 ng/mlThe WHO technical consultation on folate and vitamin [id number] has determined that folate concentrations lessthan 4 ng/ml are considered deficient. Glucose [Mass/volume] in Ser um or PlasmaOrdered By: Jim Randhawa on 07-03-2023 Glucose [Mass/Vol] 99 mg/dL Normal 70-100 [facility] Comment on above: ADA recommended refe rence rangeRandom Glucose Reference Range is dependent on time and content of last meal. Glucose of more than 200 mg/dL in a nonstressed, ambulatory subject supports the diagnosis of Diabetes Mellitus. Result Comment: [facility] Glucose Reference Range is dependent on time and content of last meal. Glucose of more than 200 mg/dL in a nonstressed, ambulatory subject supports the diagnosis of Diabetes Mellitus. ADA recommended reference range Performed By: #### M G, [id number], RETIC, FE and TIBC, JOSE, BMP #### [facility] [address] Iron [Mass/volume] in Serum or PlasmaOrdered By: Los Grissom on 07-03-2023 Iron [Mass/Vol] 59 ug/dL Normal 50-212 [facility] Comment on above: Performed By: #### M G, [id number], RETIC, FE and TIBC, JOSE, BMP #### [facility] [address] Iron and TIBC Profileon % Iron Saturation 22.8 % Normal 20-50 [facility] Comment on above: Performed By: #### M G, [id number], RETIC, FE and TIBC, JOSE, BMP #### [facility] [address] Total Iron Binding Capacity 259 ug/dL Normal 255-450 [facility] Comment on above: Performed By: #### M G, [id number], RETIC, FE and TIBC, JOSE, BMP #### [facility] [address] Iron binding capacity [Mass/ volume] in Serum or PlasmaOrdered By: Los Grissom on 07-03-2023 Iron binding capacity [Mass/Vol] 259 ug/dL 255-450 [facility] Iron saturation [Mass Fracti on] in Serum or PlasmaOrdered By: Los Grissom on 07-03-2023 Iron saturation [Mass fraction] 22.8 % 20-50 [facility] Magnesium [Mass/volume] in S andrea or PlasmaOrdered By: Jim Randhawa on 07-03-2023 Magnesium [Mass/Vol] 2.0 mg/dL Normal 1.9-2.7 [facility] Comment on above: Performed By: #### M G, [id number], RETIC, FE and TIBC, JOSE, BMP #### [address] No Panel InformationOrdered By: Jim Randhawa on 07-03-2023 Estimated GFR (CKD-EPI) 23.348 mL/Min [facility] Creatinine Clearance (Chem 25.88 [facility] Potassium [Moles/volume] in Serum or PlasmaOrdered By: Jim Randhawa on 07-03-2023 Potassium [Moles/Vol] 3.9 mmol/L Normal 3.5-5.1 [facility] Comment on above: Performed By: #### M G, [id number], RETIC, FE and TIBC, JOSE, BMP #### [address] Reticulocyte Counton 024 Reticulocyte Number 0.039 10*6/uL Normal 0.024-0 .08 4 [facility] Comment on above: Result Comment: PERF ORMED BY: [place] [address] PATHOLOGIST PRODUCTION LINE WORKER TANNER GAVIN M.D. Performed By: #### M G, [id number], RETIC, FE and TIBC, JOSE, BMP #### [address] Reticulocyte Percent 1.5 % Normal 0.5-1.5 [facility] Comment on above: Performed By: #### M G, [id number], RETIC, FE and TIBC, JOSE, BMP #### [place] [address] [place] Reticulocytes/100 RBC Auto ( Bld)Ordered By: Los Grissom on 07-03-2023 Reticulocytes/100 RBC (Bld) 1.5 % 0.5-1.5 [facility] Serum or plasma anion gap de terminationOrdered By: Jim Randhawa on 07-03-2023 Anion gap [Moles/Vol] 11.5 mmol/L Normal 6.0-15.0 [facility] Comment on above: Performed By: #### M G, [id number], RETIC, FE and TIBC, JOSE, BMP #### [address] Sodium [Moles/volume] in Ser um or PlasmaOrdered By: Jim Randhawa on 07-03-2023 Sodium [Moles/Vol] 134 mmol/L Low 136-145 [facility] Comment on above: Performed By: #### M G, [id number], RETIC, FE and TIBC, JOSE, BMP #### [address] Transferrin [Mass/volume] in Serum or PlasmaOrdered By: Los Grissom on 07-03-2023 Transferrin [Mass/Vol] 185 mg/dL Low 203-362 [facility] Comment on above: Performed By: #### M G, [id number], RETIC, FE and TIBC, JOSE, BMP #### [address] Urea nitrogen [Mass/volume] in Serum or PlasmaOrdered By: Jim Randhawa on 07-03-2023 Urea nitrogen [Mass/Vol] 95 mg/dL High 7-25 [facility] Comment on above: Performed By: #### M G, [id number], RETIC, FE and TIBC, JOSE, BMP #### [address] Vit. B12/Folate Profileon Folate 11.1 ng/mL Normal >5.9 [facility] Comment on above: Result Comment: Sandra te reference range: >5.9 ng/ml The WHO technical consultation on folate and vitamin b12 deficiencies has determined that folate concentrations less than 4 ng/ml are considered deficient. PERFORMED BY: [place] [address] PATHOLOGIST PRODUCTION LINE WORKER TANNER GAVIN M.D. Performed By: #### M G, [id number], RETIC, FE and TIBC, JOSE, BMP #### [address] [address] [place] Vitamin B12 ser/plasOrdered By: Los Grissom on 07-03-2023 Cobalamin (Vitamin B12) [Mass/Vol] 3564 pg/mL High 180-914 [facility] Comment on above: Performed By: #### M G, [id number], RETIC, FE and TIBC, JOSE, BMP #### [facility] [address] Basic Metabolic Panelon Anion gap [Moles/Vol] 11.0 mmol/L Normal 6.0-15.0 [facility] Comment on above: Performed By: #### M G, [id number], RETIC, FE and TIBC, JOSE, BMP #### [facility] [address] [place] [address] Calcium [Mass/Vol] 8.4 mg/dL Low 8.6-10.3 [facility] Comment on above: Performed By: #### M G, [id number], RETIC, FE and TIBC, JOSE, BMP #### [facility] [address] [place] [address] Chloride [Moles/Vol] 104 mmol/L Normal 98-107 [facility] Comment on above: Performed By: #### M G, [id number], RETIC, FE and TIBC, JOSE, BMP #### [facility] [address] [place] [address] CO2 [Moles/Vol] 20.2 mmol/L Low 21.0-31.0 [facility] Comment on above: Performed By: #### M G, [id number], RETIC, FE and TIBC, JOSE, BMP #### [facility] [address] [place] [address] Creatinine [Mass/Vol] 2.31 mg/dL High 0.60-1.20 [facility] Comment on above: Performed By: #### M G, [id number], RETIC, FE and TIBC, JOSE, BMP #### [facility] [address] [place] [address] Creatinine Clr Calc Pharmacy 26.22 [facility] Comment on above: Performed By: #### M G, [id number], RETIC, FE and TIBC, JOSE, BMP #### [address] GFR/1.73 sq M.predicted MDRD (S/P/Bld) [Vol rate/Area] 23.469 mL/min/{1.73_m2} [facility] Comment on above: Performed By: #### M G, [id number], RETIC, FE and TIBC, JOSE, BMP #### [facility] [address] Glucose [Mass/Vol] 89 mg/dL Normal 70-100 [facility] Comment on above: Result Comment: [facility] Glucose Reference Range is dependent on time and content of last meal. Glucose of more than 200 mg/dL in a nonstressed, ambulatory subject supports the diagnosis of Diabetes Mellitus. ADA recommended reference range Performed By: #### M G, [id number], RETIC, FE and TIBC, JOSE, BMP #### [address] Potassium [Moles/Vol] 4.2 mmol/L Normal 3.5-5.1 [facility] Comment on above: Performed By: #### M G, [id number], RETIC, FE and TIBC, JOSE, BMP #### [address] Sodium [Moles/Vol] 131 mmol/L Low 136-145 [facility] Comment on above: Performed By: #### M G, [id number], RETIC, FE and TIBC, JOSE, BMP #### [address] Urea nitrogen [Mass/Vol] 100 mg/dL High 7-25 [facility] Comment on above: Performed By: #### M G, [id number], RETIC, FE and TIBC, JOSE, BMP #### [address] Erythrocyte distribution wid th Auto (RBC) [Ratio]Ordered By: Jim Randhawa on 07-02-2023 Erythrocyte distribution width (RBC) [Ratio] 14.2 % 11.9-15.3 [facility] Hematocrit Auto (Bld) [Volum e fraction]Ordered By: Jim Randhawa on 07-02-2023 Hematocrit (Bld) [Volume fraction] 25.0 % 34.0-46.4 [facility] Hemoglobin [Mass/volume] in BloodOrdered By: Jim Radnhawa on 07-02-2023 Hemoglobin (Bld) [Mass/Vol] 8.4 g/dL 11.8-15.4 [facility] Hemogram CBC Without Diffon 07-02-2023 Erythrocyte distribution width (RBC) [Ratio] 14.2 % Normal 11.9-15.3 [facility] Comment on above: Performed By: #### Nadya G, [id number], RETIC, FE and TIBC, JOSE, BMP #### [address] Hematocrit (Bld) [Volume fraction] 25.0 % Low 34.0-46.4 [facility] Comment on above: Performed By: #### Nadya G, [id number], RETIC, FE and TIBC, JOSE, BMP #### [address] Hemoglobin (Bld) [Mass/Vol] 8.4 g/dL Low 11.8-15.4 [facility] Comment on above: Performed By: #### M G, [id number], RETIC, FE and TIBC, JOSE, BMP #### [address] MCH (RBC) [Entitic mass] 32.3 pg Normal 24.7-34.3 [facility] Comment on above: Performed By: #### M G, [id number], RETIC, FE and TIBC, JOSE, BMP #### [address] MCV (RBC) [Entitic vol] 96.6 fL Normal 80-100 [facility] Comment on above: Performed By: #### M G, [id number], RETIC, FE and TIBC, JOSE, BMP #### [address] Mean Corpuscular HGB Conc 33.4 g/dL Normal 32.0-35.0 [facility] Comment on above: Performed By: #### M G, [id number], RETIC, FE and TIBC, JOSE, BMP #### [address] Platelet mean volume (Bld) [Entitic vol] 7.7 fL Normal 6.3-10.7 [facility] Comment on above: Result Comment: PERF ORMED BY: [place] [address] PATHOLOGIST PRODUCTION LINE WORKER TANNER GAVIN M.D. Performed By: #### M G, [id number], RETIC, FE and TIBC, JOSE, BMP #### [address] Platelets (Bld) [#/Vol] 217 10*3/uL Normal 150-450 [facility] Comment on above: Performed By: #### M G, [id number], RETIC, FE and TIBC, JOSE, BMP #### [address] RBC (Bld) [#/Vol] 2.59 10*6/uL Low 3.60-5.00 [facility] Comment on above: Performed By: #### M G, [id number], RETIC, FE and TIBC, JOSE, BMP #### [address] WBC (Bld) [#/Vol] 6.1 10*3/uL Normal 3.8-11.6 [facility] Comment on above: Performed By: #### M G, [id number], RETIC, FE and TIBC, JOSE, BMP #### [place] [address] [place] Leukocytes [#/volume] correc nicol for nucleated erythrocytes in Blood by Automated counOrdered By: Jim Randhawa on 07-02-2023 WBC corrected for nucl RBC Auto (Bld) [#/Vol] 6.1 10*3/uL 3.8-11.6 [facility] MCH Auto (RBC) [Entitic mass ]Ordered By: Jim Randhawa on 07-02-2023 MCH (RBC) [Entitic mass] 32.3 pg 24.7-34.3 [facility] MCHC Auto (RBC) [Mass/Vol]Or dered By: Jim Randhawa on 07-02-2023 MCHC (RBC) [Mass/Vol] 33.4 g/dL 32.0-35.0 [facility] MCV Auto (RBC) [Entitic vol] Ordered By: Jim Randhawa on 07-02-2023 MCV (RBC) [Entitic vol] 96.6 fL 80-100 [facility] Magnesiumon 07-02-2023 Magnesium [Mass/Vol] 2.1 mg/dL Normal 1.9-2.7 [facility] Comment on above: Result Comment: PERF ORMED BY: [facility] [address] [place] [address] PATHOLOGIST PRODUCTION LINE WORKER TANNER GAVIN M.D. Performed By: #### M G, [id number], RETIC, FE and TIBC, JOSE, BMP #### [facility] [address] Platelet mean volume Auto (B ld) [Entitic vol]Ordered By: Jim Randhawa on 07-02-2023 Platelet mean volume (Bld) [Entitic vol] 7.7 fL 6.3-10.7 [facility] Platelets Auto (Bld) [#/Vol] Ordered By: Jim Randhawa on 07-02-2023 Platelets (Bld) [#/Vol] 217 10*3/uL 150-450 [facility] RBC Auto (Bld) [#/Vol]Ordere d By: Jim Randhawa on 07-02-2023 RBC (Bld) [#/Vol] 2.59 10*6/uL 3.60-5.00 [facility] Basic Metabolic Panelon -0 Anion gap [Moles/Vol] 11.9 mmol/L Normal 6.0-15.0 [facility] Comment on above: Order Comment: LINE DRAW Performed By: #### M G, [id number], RETIC, FE and TIBC, JOSE, BMP #### [facility] [address] Calcium [Mass/Vol] 8.9 mg/dL Normal 8.6-10.3 [facility] Comment on above: Order Comment: LINE DRAW Performed By: #### M G, [id number], RETIC, FE and TIBC, JOSE, BMP #### [address] Chloride [Moles/Vol] 108 mmol/L High 98-107 [facility] Comment on above: Order Comment: LINE DRAW Performed By: #### M G, [id number], RETIC, FE and TIBC, JOSE, BMP #### [address] CO2 [Moles/Vol] 18.5 mmol/L Low 21.0-31.0 [facility] Comment on above: Order Comment: LINE DRAW Performed By: #### M G, [id number], RETIC, FE and TIBC, JOSE, BMP #### [facility] [address] [place] [address] Creatinine [Mass/Vol] 2.63 mg/dL Significan t change up 0.60-1.20 [facility] Comment on above: Order Comment: LINE DRAW Performed By: #### M G, [id number], RETIC, FE and TIBC, JOSE, BMP #### [facility] [address] Creatinine Clr Calc Pharmacy 23.09 [facility] Comment on above: Order Comment: LINE DRAW Performed By: #### M G, [id number], RETIC, FE and TIBC, JOSE, BMP #### [facility] [address] [place] [address] [place] GFR/1.73 sq M.predicted MDRD (S/P/Bld) [Vol rate/Area] 20.085 mL/min/{1.73_m2} Normal [facility] Comment on above: Order Comment: LINE DRAW Performed By: #### M G, [id number], RETIC, FE and TIBC, JOSE, BMP #### [facility] [address] Glucose [Mass/Vol] 128 mg/dL High 70-100 [facility] Comment on above: Order Comment: LINE DRAW Result Comment: [facility] Glucose Reference Range is dependent on time and content of last meal. Glucose of more than 200 mg/dL in a nonstressed, ambulatory subject supports the diagnosis of Diabetes Mellitus. ADA recommended reference range Performed By: #### M G, [id number], RETIC, FE and TIBC, JOSE, BMP #### [facility] [address] Potassium [Moles/Vol] 4.4 mmol/L Normal 3.5-5.1 [facility] Comment on above: Order Comment: LINE DRAW Performed By: #### M G, [id number], RETIC, FE and TIBC, JOSE, BMP #### [facility] [address] Sodium [Moles/Vol] 134 mmol/L Low 136-145 [facility] Comment on above: Order Comment: LINE DRAW Performed By: #### M G, [id number], RETIC, FE and TIBC, JOSE, BMP #### [facility] [address] [place] [address] [place] Urea nitrogen [Mass/Vol] 104 mg/dL High 7-25 [facility] Comment on above: Order Comment: LINE DRAW Performed By: #### M G, [id number], RETIC, FE and TIBC, JOSE, BMP #### [facility] [address] Magnesiumon 07-01-2023 Magnesium [Mass/Vol] 2.3 mg/dL Normal 1.9-2.7 [facility] Comment on above: Order Comment: LINE DRAW Result Comment: PERF ORMED BY: [place] [address] PATHOLOGIST PRODUCTION LINE WORKER TANNER GAVIN M.D. Performed By: #### M G, [id number], RETIC, FE and TIBC, JOSE, BMP #### [facility] [address] [place] [address] Basic Metabolic Panelon Anion gap [Moles/Vol] 14.6 mmol/L Normal 6.0-15.0 [facility] Comment on above: Performed By: #### M G, [id number], RETIC, FE and TIBC, JOSE, BMP #### [address] Calcium [Mass/Vol] 8.6 mg/dL Normal 8.6-10.3 [facility] Comment on above: Performed By: #### M G, [id number], RETIC, FE and TIBC, JOSE, BMP #### [address] Chloride [Moles/Vol] 109 mmol/L High 98-107 [facility] Comment on above: Performed By: #### M G, [id number], RETIC, FE and TIBC, JOSE, BMP #### [address] CO2 [Moles/Vol] 15.0 mmol/L Low 21.0-31.0 [facility] Comment on above: Performed By: #### M G, [id number], RETIC, FE and TIBC, JOSE, BMP #### [facility] [address] [place] [address] Creatinine [Mass/Vol] 3.16 mg/dL High 0.60-1.20 [facility] Comment on above: Performed By: #### M G, [id number], RETIC, FE and TIBC, JOSE, BMP #### [facility] [address] [place] [address] [place] Creatinine Clr Calc Pharmacy 19.26 Normal [facility] Comment on above: Performed By: #### M G, [id number], RETIC, FE and TIBC, JOSE, BMP #### [facility] [address] [place] [address] [place] GFR/1.73 sq M.predicted MDRD (S/P/Bld) [Vol rate/Area] 16.114 mL/min/{1.73_m2} [facility] Comment on above: Performed By: #### M G, [id number], RETIC, FE and TIBC, JOSE, BMP #### [facility] [address] Glucose [Mass/Vol] 79 mg/dL Normal 70-100 [facility] Comment on above: Result Comment: [facility] Glucose Reference Range is dependent on time and content of last meal. Glucose of more than 200 mg/dL in a nonstressed, ambulatory subject supports the diagnosis of Diabetes Mellitus. ADA recommended reference range Performed By: #### M G, [id number], RETIC, FE and TIBC, JOSE, BMP #### [address] Potassium [Moles/Vol] 4.6 mmol/L Normal 3.5-5.1 [facility] Comment on above: Performed By: #### M G, [id number], RETIC, FE and TIBC, JOSE, BMP #### [facility] [address] Sodium [Moles/Vol] 134 mmol/L Low 136-145 [facility] Comment on above: Performed By: #### M G, [id number], RETIC, FE and TIBC, JOSE, BMP #### [facility] [address] Urea nitrogen [Mass/Vol] 117 mg/dL High 7-25 [facility] Comment on above: Performed By: #### M G, [id number], RETIC, FE and TIBC, JOSE, BMP #### [facility] [address] [place] [address] [place] Magnesiumon 06-30-2023 Magnesium [Mass/Vol] 2.5 mg/dL Normal 1.9-2.7 [facility] Comment on above: Result Comment: PERF ORMED BY: [facility] [address] [facility] [place] [id number] PATHOLOGIST PRODUCTION LINE WORKER TANNER GAVIN M.D. Performed By: #### M G, [id number], RETIC, FE and TIBC, JOSE, BMP #### [facility] [address] [place] [id number] [facility] 36on 04-10-2023 36 Patient states she n eeds to cancel her surgery due to her son being on the transplant list, states she would like to reschedule. Normal [facility] Orders Onlyon 04-05-2023 Orders Only [id number] PinalorenLoren jones marii A 1960 F Date Provider Department Center 04/05/2023 [facility] Family History Family history unknown: Yes Normal [facility] Office Visiton 02-22-2023 Follow-up visit [id number] PinaLoren correa A 1960 Date Provider Department Center 02/22/2023 RHIANNON MEDINA YVONNE [facility]rios [facility] Family History Family history unknown: Yes Level of Service:44375 ME OFFICE/OUTPATIENT ESTABLISHED MOD MDM 30-39 MIN Normal [facility] Follow-Upon 02-16-2023 Follow-Up [id number] PinaLoren correaa A 1960 Date Provider Department Center 02/16/2023 [facility] Family History Family history unknown: Yes Level of Service:61945 ME OFFICE/OUTPATIENT ESTABLISHED LOW MDM 20-29 MIN Reason for Visit and Comments: Pain [136] [facility] Consultation Noteon 02-10-20 Consultation Note [id number]#[id number]:127 [facility] 36on 02-08-2023 36 Called patient to in form her she needs the CT done before her follow up w/ francisco. The appt has been cancelled and needs rescheduled. [facility] Consultation Noteon 02-09-20 Consultation Note [id number]#[id number]:127 [facility] RAD - MISCon 02-08-2023 RAD - MISC [id number]#[id number]:127 [facility] 29on 01-13-2023 29 Addended by: OLU TORRES on: 02/07/2023 12:47 PM Modules accepted: Orders [facility] Office Visiton 01-13-2023 Follow-up visit [id number] Loren Moser 1960 F Date Provider Department Center 01/13/2023 384SHERLY RIOS [facility] MPORTHO Family History Family history unknown: Yes Level of Service:95918 ME OFFICE/OUTPATIENT NEW MODERATE MDM 45-59 MINUTES Reason for Visit and Comments: Pain [136] Pain [136] [facility] 36on 12-23-2022 36 Please tell her the renal function is much better now (creatinine 1.4 on 12/20/2022). I don't think she need to increase water pills. Follow up labs as scheduled. [facility] Telephoneon 12-23-2022 Telephone [id number] Loren Moser 1960 F Date Provider Department Center 12/23/2022 BENJIE LERMA YVONNE [facility] No family history on file [facility] Office Visiton 12-15-2022 Follow-up visit [id number] Loren Moser 1960 F Date Provider Department Center 12/15/2022 BENJIE LERMA [facility] No family history on file Level of Service:83306 ME OFFICE/OUTPATIENT ESTABLISHED MOD MDM 30-39 MIN Reason for Visit and Comments: Follow-up [934165] [facility] HPon 11-30-2022 HP H&P reviewed. The car wasserman was examined and there are no changes to the H&P. [facility] NURSNOTEon 11-30-2022 NURSNOTE RN educated pt on d/ c instructions. RN encouraged pt to voice any questions or concerns. Pt verbalizes no questions or concerns at this time. Pt was walked off of unit with all of belongings. [facility] Orders Onlyon 11-23-2022 Orders Only [id number] Loren Moser 1960 F Date Provider Department Center 11/23/2022 MARTHA LAZCANO [facility] No family history on file [facility] CBC AUTO DIFFon 11-22-2022 BASO # 0.0 103/ul Normal 0.0-0.1 [facility] Comment on above: Performed By: #### C BC ####[facility] Jatrxsdage[address] [place], [place] [address]Dr. Airam Tripathi Basophils/100 WBC (Bld) 0.6 % Normal 0.2-2.0 [facility] Comment on above: Performed By: #### C BC ####[facility] Tybockmxzr[address] [place], [place] [address]Dr. Airam Tripathi EO # 0.1 103/ul Normal 0.0-0.7 [facility] Comment on above: Performed By: #### C BC ####[facility] Jtdjtokyzk[address] [place], [place] [address]Dr. Airam Tripathi Eosinophils/100 WBC (Bld) 1.7 % Normal 0.9-7.0 [facility] Comment on above: Performed By: #### C BC ####[facility] Aqswgtgfcy158[address] [place], [place] [address]Dr. Airam Tripathi Erythrocyte distribution width (RBC) [Ratio] 15.2 % Critically high 11.0-15.0 [facility] Comment on above: Performed By: #### C BC ####[facility] Uwqjktqzce[address] [place], [place] [address]Dr. Airam Tripathi Hematocrit (Bld) [Volume fraction] 31.6 % Critically low 36.0-48.0 [facility] Comment on above: Performed By: #### C BC ####[facility] [address] [place] [id number]. Airam Tripathi Hemoglobin (Bld) [Mass/Vol] 9.9 g/dL Critically low 12.0-16.0 [facility] Comment on above: Performed By: #### C BC ####[facility] Ugarmazjvw6[address] [place] [id number]. Airam Tripathi IG # 0.02 10e3/ul Normal 0.00-0.03 [facility] Comment on above: Performed By: #### C BC ####[facility] [address]rn[address] [place] [address]Dr. Airam Deuce IG % 0.4 % Normal 0.0-0.5 [facility] Comment on above: Performed By: #### C BC ####[facility] Gyemtnqzre66[address] [place], [place] [address]Dr. Selenaneil Tripathi LYMPH # 0.8 103/ul Critically low 1.2-3.8 [facility] Comment on above: Performed By: #### C BC ####[facility] B[address]mmtfue[address] [place] [address]Dr. Airam Deuce Lymphocytes/100 WBC (Bld) 16.9 % Critically low 20.5-60.0 [facility] Comment on above: Performed By: #### C BC ####[facility] Optxkyflgl9[address] [place], [place] [address]Dr. Selenaneil Tripathi MANUAL DIFF REQ NO Normal [facility] Comment on above: Performed By: #### C BC ####[facility] Ietdhnplgl00[address] [place] [id number]. Airam Deuce MCH (RBC) [Entitic mass] 28.4 pg Normal 26.7-34.0 [facility] Comment on above: Performed By: #### C BC ####[facility] Rpjmeearit7531 [place] [id number]. Airam Deuce MCHC (RBC) [Mass/Vol] 31.3 g/dL Normal 29.9-35.2 [facility] Comment on above: Performed By: #### C BC ####[facility] Czxtzbvlny17[address] [place] [id number]. Airam Tripathi MCV (RBC) [Entitic vol] 90.8 fL Normal 81.0-99.0 [facility] Comment on above: Performed By: #### C BC ####[facility] H[address]nsvbdquz28[address] [place] [id number]. Airam Tripathi MONO # 0.4 103/ul Normal 0.3-0.8 [facility] Comment on above: Performed By: #### C BC ####[facility] Pcckgogjhy55[address] [place] [id number]. Airam Tripathi Monocytes/100 WBC (Bld) 8.9 % Normal 1.7-12.0 [facility] Comment on above: Performed By: #### C BC ####[facility] Vltfosekac[address] [place], [place] [address]Dr. Airam Tripathi NEUT # 3.4 103/ul Normal 1.4-6.5 [facility] Comment on above: Performed By: #### C BC ####[facility] Nlghswwjdo[address] [place], [place] [address]Dr. Airam Tripathi Neutrophils/100 WBC (Bld) 71.5 % Normal 43.0-75.0 [facility] Comment on above: Performed By: #### C BC ####[facility] Ixiyotnils[address] [place], [place] [address]Dr. Airam Tripathi Platelet mean volume (Bld) [Entitic vol] 9.4 fL Critically low 9.5-13.5 [facility] Comment on above: Performed By: #### C BC ####[facility] Nildaplmna6[address] [place] [id number]. Airam Tripathi PLT 302 103/ul Normal 150-450 [facility] Comment on above: Performed By: #### C BC ####[facility] Bbvrnggtpo[address] [place], [place] [address]Dr. Airam Deuce RBC 3.48 106/ul Critically low 4.20-5.40 [facility] Comment on above: Performed By: #### C BC ####[facility] I[address]jllyzav[address] [place] [address]Dr. Airam Tripathi WBC 4.7 103/ul Normal 4.0-11.0 [facility] Comment on above: Performed By: #### C BC ####[facility] Exckmxqfss43[address] [place] [address]Dr. Airam Tripathi PROF 14(COMP METB)on 023 Albumin [Mass/Vol] 3.4 g/dL Normal 3.4-5.0 [facility] Comment on above: Performed By: #### C MP ####[facility] Ipntpdoicq8795 [place] [address]Dr. Airam Tripathi Albumin/Globulin [Mass ratio] 1.0 {ratio} Normal [facility] Comment on above: Performed By: #### C MP ####[facility] Djannjvhlq[address] [place], [place] [address]Dr. Airam Tripathi ALP [Catalytic activity/Vol] 123 U/L Critically high 46-116 [facility] Comment on above: Performed By: #### C MP ####[facility] Njuyjthzde49[address] [place] [address]Dr. Airam Tripathi ALT [Catalytic activity/Vol] 24 U/L Normal 14-59 [facility] Comment on above: Performed By: #### C MP ####[facility] Sfkgpnnjns5138 [place] [address]Dr. Airam Tripathi Anion gap [Moles/Vol] 12.1 mmol/L Normal [facility] Comment on above: Performed By: #### C MP ####[facility] Rfuypkjdax3444 [place] [address]Dr. Airam Tripathi AST [Catalytic activity/Vol] 30 U/L Normal 15-37 [facility] Comment on above: Performed By: #### C MP ####[facility] Uyredbkadv9538 [place] [address]Dr. Airam Tripathi Bilirubin [Mass/Vol] 0.4 mg/dL Normal 0.2-1.0 [facility] Comment on above: Performed By: #### C MP ####[facility] Dphayakanj085[address] [place], [place] [address]Dr. Airam Tripathi Calcium [Mass/Vol] 8.9 mg/dL Normal 8.5-10.1 [facility] Comment on above: Performed By: #### C MP ####[facility] Ebvrjhcfwu0154 [place] [address]Dr. Airam Tripathi Chloride [Moles/Vol] 95 mmol/L Critically low 98-107 [facility] Comment on above: Performed By: #### C MP ####[facility] Asbkskiadf355[address] [place], [place] [address]Dr. Airam Tripathi CO2 [Moles/Vol] 28.7 mmol/L Normal 21.0-32.0 [facility] Comment on above: Performed By: #### C MP ####[facility] Fdsqcyyvom[address] [place], [place] [address]Dr. Airam Tripathi Creatinine [Mass/Vol] 1.25 mg/dL Critically high 0.55-1.02 [facility] Comment on above: Performed By: #### C MP ####[facility] Hrrukekyim[address] [place], [place] [address]Dr. Airam Tripathi EGFR-AF BARBADIAN 53 mL/min/1.73m2 Critically low >=60 [facility] Comment on above: Performed By: #### C MP ####[facility] Vxugivsyvc[address] [place], [place] [address]Dr. Airam Tripathi EGFR-NON AF BARBADIAN 44 mL/min/1.73m2 Critically low >=60 [facility] Comment on above: Performed By: #### C MP ####[facility] Xwgbkluico23[address] [place], [place] [address]Dr. Airam Tripathi Globulin (S) [Mass/Vol] 3.5 g/dL Normal [facility] Comment on above: Performed By: #### C MP ####[facility] Tmxwgvcopi6[address] [place], [place] [address]Dr. Airam Tripathi Glucose [Mass/Vol] 89 mg/dL Normal 74-106 [facility] Comment on above: Performed By: #### C MP ####[facility] Ixqghhdrnk[address] [place], [place] [address]Dr. Airam Tripathi Potassium [Moles/Vol] 4.8 mmol/L Normal 3.5-5.1 [facility] Comment on above: Performed By: #### C MP ####[facility] Rjoxulbpcu194[address] [place], [place] [address]Dr. Airam Tripathi Protein [Mass/Vol] 6.9 g/dL Normal 6.4-8.2 [facility] Comment on above: Performed By: #### C MP ####[facility] Dxlzumqwgk635[address] [place], [place] [address]Dr. Airam Tripathi Sodium [Moles/Vol] 131 mmol/L Critically low 136-145 [facility] Comment on above: Performed By: #### C MP ####[facility] Avgmugupuz[address] [place], [place] [address]Dr. Airam Tripathi Urea nitrogen [Mass/Vol] 37.0 mg/dL Critically high 7.0-18.0 [facility] Comment on above: Performed By: #### C MP ####[facility] Hqrgochpsh[address] [place], [place] [address]Dr. Airam Tripathi Urea nitrogen/Creatinine [Mass ratio] 29.6 mg/mg Normal [facility] Comment on above: Performed By: #### C MP ####[facility] Xsuxhibabz8[address] [place], [place] [address]Dr. Airam Tripathi OSMOLALITYon 11-18-2022 Osmolality [Osmolality] 293 mosm/kg Normal 275-295 [facility] Comment on above: Performed By: #### O SMO ####[facility] Hpbrhomznq[address] [place], [place] [address]Dr. Airam Tripathi BNPon 11-16-2022 Natriuretic peptide B (Bld) [Mass/Vol] 1142.0 pg/mL Critically high <=900.0 [facility] Comment on above: Performed By: #### B SUPERVISOR DIALS ####[facility] Rjbklzdqrk[address] [place], [place] [address]Dr. Airam Deuce CBC AUTO DIFFon 11-16-2022 BASO # 0.0 103/ul Normal 0.0-0.1 [facility] Comment on above: Performed By: #### C BC ####[facility] Fskzicrxsd79[address] [place], [place] [address]Dr. Airam Tripathi Basophils/100 WBC (Bld) 0.3 % Normal 0.2-2.0 [facility] Comment on above: Performed By: #### C BC ####[facility] Rienbvkhtd[address] [place], [place] [address]Dr. Airam Tripathi EO # 0.3 103/ul Normal 0.0-0.7 [facility] Comment on above: Performed By: #### C BC ####[facility] Ygzrxdnbkh35[address] [place], [place] [address]Dr. Airam Tripathi Eosinophils/100 WBC (Bld) 4.6 % Normal 0.9-7.0 [facility] Comment on above: Performed By: #### C BC ####[facility] Ridmwbtnyz23[address] [place], [place] [address]Dr. Airam Tripathi Erythrocyte distribution width (RBC) [Ratio] 16.1 % Critically high 11.0-15.0 [facility] Comment on above: Performed By: #### C BC ####[facility] Gszotepaxa[address] [place], [place] [address]Dr. Airam Tripathi Hematocrit (Bld) [Volume fraction] 28.0 % Critically low 36.0-48.0 [facility] Comment on above: Performed By: #### C BC ####[facility] Vvuujyrevq8[address] [place], [place] [address]Dr. Airam Tripathi Hemoglobin (Bld) [Mass/Vol] 8.9 g/dL Critically low 12.0-16.0 [facility] Comment on above: Performed By: #### C BC ####[facility] Ttpfxwtwgu429[address] [place], [place] [address]Dr. Airam Tripathi IG # 0.02 10e3/ul Normal 0.00-0.03 [facility] Comment on above: Performed By: #### C BC ####[facility] Ybrrslcdwk80[address] [place], [place] [address]Dr. Airam Tripathi IG % 0.3 % Normal 0.0-0.5 [facility] Comment on above: Performed By: #### C BC ####[facility] Onyrovdohi[address] [place] [address]DrKianna Airam Deuce LYMPH # 1.5 103/ul Normal 1.2-3.8 [facility] Comment on above: Performed By: #### C BC ####[facility] Qcgznqyspo1820 [place] [address]DrKianna Airam Deuce Lymphocytes/100 WBC (Bld) 24.2 % Normal 20.5-60.0 [facility] Comment on above: Performed By: #### C BC ####[facility] Ccnivmyhol[address] [place], [place] [address]DrKianna Selenaneil Tripathi MANUAL DIFF REQ NO Normal [facility] Comment on above: Performed By: #### C BC ####[facility] Mesvptmfvp00[address] [place], [place] [address]DrKianna Airam Deuce MCH (RBC) [Entitic mass] 29.3 pg Normal 26.7-34.0 [facility] Comment on above: Performed By: #### C BC ####[facility] Xnbbqvhlwl9[address] [place], [place] [address]Dr. Airam Deuce MCHC (RBC) [Mass/Vol] 31.8 g/dL Normal 29.9-35.2 [facility] Comment on above: Performed By: #### C BC ####[facility] Twminkpudr[address] [place], [place] [address]DrKianna Selenaneil Tripathi MCV (RBC) [Entitic vol] 92.1 fL Normal 81.0-99.0 [facility] Comment on above: Performed By: #### C BC ####[facility] Txawmrgmgy[address] [place], [place] [address]DrKianna Tripathi MONO # 0.6 103/ul Normal 0.3-0.8 [facility] Comment on above: Performed By: #### C BC ####[facility] Kenkjwbmwl[address] [place], [place] [address]DrKianna Tripathi Monocytes/100 WBC (Bld) 10.0 % Normal 1.7-12.0 [facility] Comment on above: Performed By: #### C BC ####[facility] Pxhlrumjee4[address] [place] [address]Dr. Airam Tripathi NEUT # 3.7 103/ul Normal 1.4-6.5 [facility] Comment on above: Performed By: #### C BC ####[facility] Jbjnekwnxl5228 [place] [address]Dr. Ariam Tripathi Neutrophils/100 WBC (Bld) 60.6 % Normal 43.0-75.0 [facility] Comment on above: Performed By: #### C BC ####[facility] Mgannypraa6871 [place] [address]Dr. Airam Tripathi Platelet mean volume (Bld) [Entitic vol] 9.1 fL Critically low 9.5-13.5 [facility] Comment on above: Performed By: #### C BC ####[facility] T[address]ygjtwiox50[address] [place] [address]Dr. Airam Tripathi PLT 242 103/ul Normal 150-450 [facility] Comment on above: Performed By: #### C BC ####[facility] Ahtxpmagfo[address] [place] [address]Dr. Airam Tripathi RBC 3.04 106/ul Critically low 4.20-5.40 [facility] Comment on above: Performed By: #### C BC ####[facility] Schghmtcmh7[address] [place] [address]Dr. Airam Tripathi WBC 6.1 103/ul Normal 4.0-11.0 [facility] Comment on above: Performed By: #### C BC ####[facility] Roqzgzojtz[address] [place] [address]Dr. Airam Tripathi CT STROKE HEAD WOon 11-17-19 CT STROKE HEAD WO Normal [facility] PROF CHEM 8 (BAS METB)on Anion gap [Moles/Vol] 9.8 mmol/L Normal [facility] Comment on above: Performed By: #### B MP, HSTROPN ####[facility] Qqfoqocgez2084 [place] [address]Dr. Airam Tripathi Calcium [Mass/Vol] 8.4 mg/dL Critically low 8.5-10.1 Th [facility] Comment on above: Performed By: #### B GERTRUDE, HSTROPN ####[facility] Wfqsfcvdrc3759 [place] [address]Dr. Airam Tripathi Chloride [Moles/Vol] 99 mmol/L Normal 98-107 [facility] Comment on above: Performed By: #### B GERTRUDE, HSTROPN ####[facility] Tdynilstjj3933 [place] [address]Dr. Airam Tripathi CO2 [Moles/Vol] 28.3 mmol/L Normal 21.0-32.0 [facility] Comment on above: Performed By: #### B GERTRUDE, HSTROPN ####[facility] Dqoejzjhbk[address] [place], [place] [address]Dr. Airam Tripathi Creatinine [Mass/Vol] 1.40 mg/dL Critically high 0.55-1.02 [facility] Comment on above: Performed By: #### B GERTRUDE, HSTROPN ####[facility] Qnkqopabum32[address] [place], [place] [address]Dr. Airam Tripathi EGFR-AF BARBADIAN 46 mL/min/1.73m2 Critically low >=60 [facility] Comment on above: Performed By: #### B GERTRUDE, HSTROPN ####[facility] Ifmlpdrbrz[address] [place], [place] [address]Dr. Airam Tripathi EGFR-NON AF BAR[place]IAN 38 mL/min/1.73m2 Critically low >=60 [facility] Comment on above: Performed By: #### B GERTRUDE, HSTROPN ####[facility] Ijutbrvxqr[address] [place], [place] [address]Dr. Airam Tripathi Glucose [Mass/Vol] 88 mg/dL Normal 74-106 [facility] Comment on above: Performed By: #### B GERTRUDE, HSTROPN ####[facility] Bcnssijocj190[address] [place], [place] [address]Dr. Airam Tripathi Potassium [Moles/Vol] 5.1 mmol/L Normal 3.5-5.1 [facility] Comment on above: Performed By: #### B GERTRUDE, HSTROPN ####[facility] Irtifybjoa9636 [place] [address]Dr. Airam Tripathi Sodium [Moles/Vol] 132 mmol/L Critically low 136-145 Th [facility] Comment on above: Performed By: #### B GERTRUDE, HSTROPN ####[facility] Mwsajirzij20[address] [place] [address]Dr. Selenaneil Tripathi Urea nitrogen [Mass/Vol] 56.0 mg/dL Critically high 7.0-18.0 [facility] Comment on above: Performed By: #### B GERTRUDE, HSTROPN ####[facility] Ysxoczdazb4[address] [place] [address]Dr. Airam Tripathi Urea nitrogen/Creatinine [Mass ratio] 40.0 mg/mg Normal [facility] Comment on above: Performed By: #### B GERTRUDE HSTROPN ####[facility] [address]idskplxks[address] [place], [place] [address]Dr. Airam Deuce TROPONIN, HIGH SENSITIVITYon 11-16-2022 HSTROP 9.9 pg/mL Normal 4.0-51.3 [facility] Comment on above: Result Comment: CUT- OFF POINTS HAVE BEEN ESTABLISHED BASED ON THE FOURTH UNIVERSAL DEFINITIONS OF MYOCARDIALINFARCTION. THE UPPER REFERENCE LIMIT (URL) OF TROPONIN, DEFINED THE 99TH PERCENTILE OFcTnI DISTRIBUTION IN A REFERENCE POPULATION, HAS BEEN CONFIRMED THE DECISION THRESHOLDFOR DE DIAGNOSIS. Performed By: #### B GERTRUDE, HSTROPN ####[facility] Yqlhzlniei459[address] [place], [place] [address]Dr. Airam Deuce XR CHEST 1 Von 11-16-2022 XR CHEST 1 V Normal [facility] CBC AUTO DIFFon 11-11-2022 BASO # 0.0 103/ul Normal 0.0-0.1 [facility] Comment on above: Performed By: #### C BC ####[facility] Dknnauvleq295[address] [place], [place] [address]Dr. Selenaneil Tripathi Basophils/100 WBC (Bld) 0.4 % Normal 0.2-2.0 [facility] Comment on above: Performed By: #### C BC ####[facility] Ugwmhbyurz90[address] [place], [place] [address]Dr. Airam Tripathi EO # 0.4 103/ul Normal 0.0-0.7 [facility] Comment on above: Performed By: #### C BC ####[facility] Sxzreqpfpz425[address] [place], [place] [address]Dr. Airam Tripathi Eosinophils/100 WBC (Bld) 4.6 % Normal 0.9-7.0 [facility] Comment on above: Performed By: #### C BC ####[facility] Ykwyndctgw217[address] [place], [place] [address]Dr. Airam Tripathi Erythrocyte distribution width (RBC) [Ratio] 15.8 % Critically high 11.0-15.0 [facility] Comment on above: Performed By: #### C BC ####[facility] Adojpledzc039[address] [place], [place] [address]Dr. Airam Tripathi Hematocrit (Bld) [Volume fraction] 30.3 % Critically low 36.0-48.0 [facility] Comment on above: Performed By: #### C BC ####[facility] Gvudejvcuy174[address] [place], [place] [address]Dr. Airam Tripathi Hemoglobin (Bld) [Mass/Vol] 9.3 g/dL Critically low 12.0-16.0 [facility] Comment on above: Performed By: #### C BC ####[facility] Xvfyxnitnc235198 [address] [place], [place] [address]Dr. Airam Tripathi IG # 0.03 10e3/ul Normal 0.00-0.03 [facility] Comment on above: Performed By: #### C BC ####[facility] Avsggmtbzt359[address] [place], [place] [address]Dr. Airam Tripathi IG % 0.4 % Normal 0.0-0.5 [facility] Comment on above: Performed By: #### C BC ####[facility] Iabebwnpfc59[address] [place], [place] [address]DrKianna Tripathi LYMPH # 2.0 103/ul Normal 1.2-3.8 [facility] Comment on above: Performed By: #### C BC ####[facility] [address]drvjlla[address] [place] [address]DrKianna Tripathi Lymphocytes/100 WBC (Bld) 24.5 % Normal 20.5-60.0 [facility] Comment on above: Performed By: #### C BC ####[facility] Fqmyerxuci9[address] [place], [place] [address]DrKianna Tripathi MANUAL DIFF REQ NO Normal [facility] Comment on above: Performed By: #### C BC ####[facility] Oobjkvnbip155[address] [place], [place] [address]DrKianna Tripathi MCH (RBC) [Entitic mass] 28.9 pg Normal 26.7-34.0 [facility] Comment on above: Performed By: #### C BC ####[facility] Solbdafmon1425[address] [place], [place] [address]Dr. Airam Tripathi MCHC (RBC) [Mass/Vol] 30.7 g/dL Normal 29.9-35.2 [facility] Comment on above: Performed By: #### C BC ####[facility] Jpoeqnnnwp6112[address] [place], [place] [address]DrKianna Tripathi MCV (RBC) [Entitic vol] 94.1 fL Normal 81.0-99.0 [facility] Comment on above: Performed By: #### C BC ####[facility] Tordthpfgc07[address] [place], [place] [address]DrKianna Tripathi MONO # 0.7 103/ul Normal 0.3-0.8 [facility] Comment on above: Performed By: #### C BC ####[facility] Sfdzglcxsb800[address] [place], [place] [address]DrKianna Tripathi Monocytes/100 WBC (Bld) 8.3 % Normal 1.7-12.0 [facility] Comment on above: Performed By: #### C BC ####[facility] Sjjpbixdos400[address] [place], [place] [address]DrKianna Tripathi NEUT # 5.0 103/ul Normal 1.4-6.5 [facility] Comment on above: Performed By: #### C BC ####[facility] X[address]afbhfnkv[address] [place] [address]DrKianna Tripathi Neutrophils/100 WBC (Bld) 61.8 % Normal 43.0-75.0 [facility] Comment on above: Performed By: #### C BC ####[facility] [address]mb[address]zv[address] [place] [address]DrKianna Tripathi Platelet mean volume (Bld) [Entitic vol] 9.4 fL Critically low 9.5-13.5 [facility] Comment on above: Performed By: #### C BC ####[facility] Jzlohvrgbc622[address] [place], [place] [address]DrKianna Tripathi PLT 270 103/ul Normal 150-450 [facility] Comment on above: Performed By: #### C BC ####[facility] Qsdiohghmh9318[address] [place], [place] [address]DrKianna Tripathi RBC 3.22 106/ul Critically low 4.20-5.40 [facility] Comment on above: Performed By: #### C BC ####[facility] Oaitywotlh699[address] [place], [place] [address]DrKianna Tripathi WBC 8.1 103/ul Normal 4.0-11.0 [facility] Comment on above: Performed By: #### C BC ####[facility] Ctkrtgsfmv018[address] [place], [place] [address]DrKianna Tripathi PROF 14(COMP METB)on 023 Albumin [Mass/Vol] 3.2 g/dL Critically low 3.4-5.0 [facility] Comment on above: Performed By: #### C MP ####[facility] Ydloismezu4045[address] [place], [place] [address]DrKianna Tripathi Albumin/Globulin [Mass ratio] 1.0 {ratio} Normal [facility] Comment on above: Performed By: #### C MP ####[facility] Waccjsahyu3926[address] [place], [place] [address]DrKianna Tripathi ALP [Catalytic activity/Vol] 108 U/L Normal 46-116 [facility] Comment on above: Performed By: #### C MP ####[facility] Emewefcnkl[address] [place] [address]Dr. Airam Tripathi ALT [Catalytic activity/Vol] 30 U/L Normal 14-59 [facility] Comment on above: Performed By: #### C MP ####[facility] Xigemeqrmp4932[address] [place], [place] [address]Dr. Airam Tripathi Anion gap [Moles/Vol] 12.8 mmol/L Normal Th [facility] Comment on above: Performed By: #### C MP ####[facility] Jkmfdkdsae3237[address] [place], [place] [address]Dr. Airam Tripathi AST [Catalytic activity/Vol] 33 U/L Normal 15-37 [facility] Comment on above: Performed By: #### C MP ####[facility] Vycghcfuft632[address] [place], [place] [address]Dr. Airam Tripathi Bilirubin [Mass/Vol] 0.2 mg/dL Normal 0.2-1.0 [facility] Comment on above: Performed By: #### C MP ####[facility] Eryiwfshqv934[address] [place], [place] [address]Dr. Airam Tripathi Calcium [Mass/Vol] 8.3 mg/dL Critically low 8.5-10.1 [facility] Comment on above: Performed By: #### C MP ####[facility] Rnkgiuyufm367698 [address] [place], [place] [address]Dr. Airam Tripathi Chloride [Moles/Vol] 99 mmol/L Normal 98-107 [facility] Comment on above: Performed By: #### C MP ####[facility] Kztyyyutow767[address] [place], [place] [address]Dr. Airam Tripathi CO2 [Moles/Vol] 27.6 mmol/L Normal 21.0-32.0 [facility] Comment on above: Performed By: #### C MP ####[facility] Umohlomjom680[address] [place], [place] [address]Dr. Airam Tripathi Creatinine [Mass/Vol] 2.01 mg/dL Critically high 0.55-1.02 [facility] Comment on above: Performed By: #### C MP ####[facility] [address]jmkxxwe[address] [place] [address]Dr. Airam Tripathi EGFR-AF BARBADIAN 31 mL/min/1.73m2 Critically low >=60 [facility] Comment on above: Performed By: #### C MP ####[facility] Kcckamdtbv16[address] [place] [address]Dr. Airam Tripathi EGFR-NON AF BAR[place]IAN 25 mL/min/1.73m2 Critically low >=60 [facility] Comment on above: Performed By: #### C MP ####[facility] Brnoowcuoy913[address] [place], [place] [address]Dr. Airam Tripathi Globulin (S) [Mass/Vol] 3.2 g/dL Normal [facility] Comment on above: Performed By: #### C MP ####[facility] Wdqzlmvhra538[address] [place], [place] [address]Dr. Airam Tripathi Glucose [Mass/Vol] 158 mg/dL Critically high 74-106 T [facility] Comment on above: Performed By: #### C MP ####[facility] Xjsnyuxmkr0360[address] [place], [place] [address]Dr. Airam Tripathi Potassium [Moles/Vol] 5.4 mmol/L Critically high 3.5-5.1 [facility] Comment on above: Performed By: #### C MP ####[facility] Zdugqkqqgd04[address] [place], [place] [address]Dr. Airam Tripathi Protein [Mass/Vol] 6.4 g/dL Normal 6.4-8.2 [facility] Comment on above: Performed By: #### C MP ####[facility] Ibylxnppeq53[address] [place], [place] [address]Dr. Airam Tripathi Sodium [Moles/Vol] 134 mmol/L Critically low 136-145 Th [facility] Comment on above: Performed By: #### C MP ####[facility] Acfjxuasbd825[address] [place], [place] [address]Dr. Airam Tripathi Urea nitrogen [Mass/Vol] 52.0 mg/dL Critically high 7.0-18.0 [facility] Comment on above: Performed By: #### C MP ####[facility] [address] [place], [place] [address]PrKianna Tripathi Urea nitrogen/Creatinine [Mass ratio] 25.9 mg/mg Normal [facility] Comment on above: Performed By: #### C MP ####[facility] [address]ze[address] [place], [place] [address]Sv. Airam Tripathi HPon 11-07-2022 [facility] Cardiology - [facility] Subjective Mabel Moser is a 62 y.o. year old female patient being seen for 2 week follow up per Sofie Bernard CNP. She says since she was last seen on 10/28, Dr. Santana increased her Entresto to 97-103mg bid, metoprolol to 50mg TID, and hydralazine to 100mg TID. Says she was in [facility] again last Monday with a BP of 214/127. Patient Active Problem List Diagnosis Abnormal weight loss Acute sinusitis Amnesia Anxiety Other specified anxiety disorders Mitral valve regurgitation Pulmonic valve regurgitation Aortic valve regurgitation Arthritis of right knee Benign essential hypertension Bilateral hearing loss Chronic obstructive pulmonary disease (CMS/HCC) CKD (chronic kidney disease) stage 3, GFR 30-59 ml/min ([facility]) Closed fracture of trochanter of femur ([facility]) Clostridium difficile colitis Coronary arteriosclerosis Diffuse [...] In the past she was admitted to [facility] in 2019 with fluid overload and [...] distension. Pal (more content not included)... Normal [facility] Office Visiton 11-07-2022 Follow-up visit [id number] Loren Moser 1960 F Date Provider Department Center 11/07/2022 BENJIE LERMA [facility] No family history on file Level of Service:40962 ME OFFICE/OUTPATIENT ESTABLISHED MOD MDM 30-39 MIN Normal [facility] OSMOLALITYon 11-06-2022 Osmolality [Osmolality] 261 mosm/kg Critically low 275-295 [facility] Comment on above: Performed By: #### O SMO ####[facility] [address]xd[address] [place] [address]Dr. Airam Tripathi XR HIPS GUMARO 3_4V WO PELVISon 11-04-2022 XR HIPS GUMARO 3_4V WO PELVIS Normal [facility] XR KNEE LT 4V or >on 023 XR KNEE LT 4V or > Normal [facility] BNPon 11-03-2022 Natriuretic peptide B (Bld) [Mass/Vol] 1168.0 pg/mL Critically high <=900.0 [facility] Comment on above: Performed By: #### B SUPERVISOR DIALS, BMP ####[facility] [address] [place] [address]Dr. Airam Tripathi CBC AUTO DIFFon 11-03-2022 BASO # 0.0 103/ul Normal 0.0-0.1 [facility] Comment on above: Performed By: #### C BC ####[facility] Y[address]klwbkdu[address] [place] [address]Dr. Airam Tripathi Basophils/100 WBC (Bld) 0.3 % Normal 0.2-2.0 [facility] Comment on above: Performed By: #### C BC ####[facility] Mmpkjoiogj4[address] [place] [address]Dr. Airam Tripathi EO # 0.2 103/ul Normal 0.0-0.7 [facility] Comment on above: Performed By: #### C BC ####[facility] O[address]pjwkbed[address] [place] [address]Dr. Airam Tripathi Eosinophils/100 WBC (Bld) 1.9 % Normal 0.9-7.0 [facility] Comment on above: Performed By: #### C BC ####[facility] Ftrpjbvryw[address] [place] [address]Dr. Airam Tripathi Erythrocyte distribution width (RBC) [Ratio] 15.2 % Critically high 11.0-15.0 [facility] Comment on above: Performed By: #### C BC ####[facility] Mkcnidezrd57[address] [place] [address]Dr. Airam Tripathi Hematocrit (Bld) [Volume fraction] 34.3 % Critically low 36.0-48.0 [facility] Comment on above: Performed By: #### C BC ####[facility] V[address]ofgj24[address] [place] [address]Dr. Airam Tripathi Hemoglobin (Bld) [Mass/Vol] 11.0 g/dL Critically low 12.0-16.0 [facility] Comment on above: Performed By: #### C BC ####[facility] T[address]lqtbsoc[address] [place] [address]Dr. Airam Tripathi IG # 0.06 10e3/ul Critically high 0.00-0.03 [facility] Comment on above: Performed By: #### C BC ####[facility] [address]uvtlcsb[address] [place] [address]Dr. Airam Tripathi IG % 0.5 % Normal 0.0-0.5 [facility] Comment on above: Performed By: #### C BC ####[facility] S[address]z27[address] [place] [id number]. Airam Deuce LYMPH # 2.3 103/ul Normal 1.2-3.8 [facility] Comment on above: Performed By: #### C BC ####[facility] Hkeqxvgyws5[address] [place] [id number]. Airam Deuce Lymphocytes/100 WBC (Bld) 20.4 % Critically low 20.5-60.0 [facility] Comment on above: Performed By: #### C BC ####[facility] Pckfracgiz27[address] [place] [address]Dr. Airam Deuce MANUAL DIFF REQ NO Normal [facility] Comment on above: Performed By: #### C BC ####[facility] Honvzdcyrb034[address] [place] [address]Dr. Airam Deuce MCH (RBC) [Entitic mass] 28.7 pg Normal 26.7-34.0 [facility] Comment on above: Performed By: #### C BC ####[facility] Ozalltcbsl54[address] [place] [address]Dr. Airam Tripathi MCHC (RBC) [Mass/Vol] 32.1 g/dL Normal 29.9-35.2 [facility] Comment on above: Performed By: #### C BC ####[facility] Ppbljoqeca549[address] [place] [address]Dr. Airam Deuce MCV (RBC) [Entitic vol] 89.6 fL Normal 81.0-99.0 [facility] Comment on above: Performed By: #### C BC ####[facility] Mwdighkxze12[address] [place] [address]Dr. Airam Deuce MONO # 0.9 103/ul Critically high 0.3-0.8 [facility] Comment on above: Performed By: #### C BC ####[facility] Iviloypxhq23[address] [place] [address]Dr. Airam Deuce Monocytes/100 WBC (Bld) 8.3 % Normal 1.7-12.0 [facility] Comment on above: Performed By: #### C BC ####[facility] Dudcwoniox9472 [place] [id number]. Airam Tripathi NEUT # 7.8 103/ul Critically high 1.4-6.5 [facility] Comment on above: Performed By: #### C BC ####[facility] Gqdyxodalx5099 [place] [id number]. Airam Tripathi Neutrophils/100 WBC (Bld) 68.6 % Normal 43.0-75.0 [facility] Comment on above: Performed By: #### C BC ####[facility] Nssobilrjg7892 [place] [address]Dr. Airam Tripathi Platelet mean volume (Bld) [Entitic vol] 8.9 fL Critically low 9.5-13.5 [facility] Comment on above: Performed By: #### C BC ####[facility] Olpbgdjwgn30[address] [place] [address]Dr. Airam Tripathi PLT 323 103/ul Normal 150-450 [facility] Comment on above: Performed By: #### C BC ####[facility] Wihdpiephh[address] [place], [place] [address]Dr. Airam Tripathi RBC 3.83 106/ul Critically low 4.20-5.40 [facility] Comment on above: Performed By: #### C BC ####[facility] Txoqahioiw23[address] [place] [address]Dr. Airam Tripathi WBC 11.4 103/ul Critically high 4.0-11.0 [facility] Comment on above: Performed By: #### C BC ####[facility] Ysiashmtrh3415 [place] [address]Dr. Airam Tripathi BASO # 0.0 103/ul Normal 0.0-0.1 [facility] Comment on above: Performed By: #### C BC ####[facility] Mkpvqusoru437[address] [place], [place] [address]Dr. Airam Tripathi Basophils/100 WBC (Bld) 0.2 % Normal 0.2-2.0 [facility] Comment on above: Performed By: #### C BC ####[facility] Cqxwsyxurr853[address] [place], [place] [address]Dr. Airam Tripathi EO # 0.1 103/ul Normal 0.0-0.7 [facility] Comment on above: Performed By: #### C BC ####[facility] Jrtpcipokn8961 [place] [address]Dr. Airam Tripathi Eosinophils/100 WBC (Bld) 0.7 % Critically low 0.9-7.0 [facility] Comment on above: Performed By: #### C BC ####[facility] Yuijmtiaib[address] [place], [place] [address]Dr. Airam Tripathi Erythrocyte distribution width (RBC) [Ratio] 15.4 % Critically high 11.0-15.0 [facility] Comment on above: Performed By: #### C BC ####[facility] Amnzmkfqux088[address] [place], [place] [address]Dr. Selenaneil Tripathi Hematocrit (Bld) [Volume fraction] 33.6 % Critically low 36.0-48.0 [facility] Comment on above: Performed By: #### C BC ####[facility] Turuyclwid8801[address] [place], [place] [address]Dr. Airam Tripathi Hemoglobin (Bld) [Mass/Vol] 10.9 g/dL Critically low 12.0-16.0 [facility] Comment on above: Performed By: #### C BC ####[facility] Rakdayqkha350[address] [place], [place] [address]Dr. Airam Tripathi IG # 0.04 10e3/ul Critically high 0.00-0.03 [facility] Comment on above: Performed By: #### C BC ####[facility] Hmpfwougcg102[address] [place], [place] [address]Dr. Selenaneil Tripathi IG % 0.5 % Normal 0.0-0.5 [facility] Comment on above: Performed By: #### C BC ####[facility] Dqhmdudmvf0916[address] [place], [place] [address]Dr. Airam Tripathi LYMPH # 1.1 103/ul Critically low 1.2-3.8 [facility] Comment on above: Performed By: #### C BC ####[facility] Ixhpemvbya7276 [place] [address]Dr. Airam Tripathi Lymphocytes/100 WBC (Bld) 13.3 % Critically low 20.5-60.0 [facility] Comment on above: Performed By: #### C BC ####[facility] Zgtrifmloq3972 [place] [address]Dr. Airam Deuce MANUAL DIFF REQ NO Normal [facility] Comment on above: Performed By: #### C BC ####[facility] Foqrliyaop65[address] [place] [address]Dr. Airam Deuce MCH (RBC) [Entitic mass] 29.1 pg Normal 26.7-34.0 [facility] Comment on above: Performed By: #### C BC ####[facility] Urxpgbzdhw729[address] [place], [place] [address]Dr. Airam Deuce MCHC (RBC) [Mass/Vol] 32.4 g/dL Normal 29.9-35.2 [facility] Comment on above: Performed By: #### C BC ####[facility] Pshszowswy224[address] [place], [place] [address]Dr. Airam Deuce MCV (RBC) [Entitic vol] 89.6 fL Normal 81.0-99.0 [facility] Comment on above: Performed By: #### C BC ####[facility] Fzurtzyelo1975[address] [place], [place] [address]Dr. Airam Deuce MONO # 0.5 103/ul Normal 0.3-0.8 [facility] Comment on above: Performed By: #### C BC ####[facility] Qogwxtmphh834[address] [place], [place] [address]Dr. Selenaneil Tripathi Monocytes/100 WBC (Bld) 6.4 % Normal 1.7-12.0 [facility] Comment on above: Performed By: #### C BC ####[facility] Ldsiobvaej7614[address] [place], [place] [address]Dr. Airam Tripathi NEUT # 6.5 103/ul Normal 1.4-6.5 [facility] Comment on above: Performed By: #### C BC ####[facility] Tivipetuhm[address] [place] [address]Dr. Airam Tripathi Neutrophils/100 WBC (Bld) 78.9 % Critically high 43.0-75.0 [facility] Comment on above: Performed By: #### C BC ####[facility] Gyyuvihubb8225 [place] [address]Dr. Airam Tripathi Platelet mean volume (Bld) [Entitic vol] 9.4 fL Critically low 9.5-13.5 [facility] Comment on above: Performed By: #### C BC ####[facility] Mdxngxlkbq7736 [place] [address]Dr. Airam Tripathi PLT 314 103/ul Normal 150-450 [facility] Comment on above: Performed By: #### C BC ####[facility] Kibceeyzxh6705 [place] [address]Dr. Airam Tripathi RBC 3.75 106/ul Critically low 4.20-5.40 [facility] Comment on above: Performed By: #### C BC ####[facility] Ldmivzrgfj899[address] [place], [place] [address]Dr. Airam Tripathi WBC 8.3 103/ul Normal 4.0-11.0 [facility] Comment on above: Performed By: #### C BC ####[facility] Zbcqtcevzb265[address] [place], [place] [address]Dr. Airam Tripathi CT HEAD WO CONon 11-03-2022 CT HEAD WO CON Normal [facility] PROF 14(COMP METB)on 023 Albumin [Mass/Vol] 3.2 g/dL Critically low 3.4-5.0 Th e [facility] Comment on above: Performed By: #### C MP ####[facility] Ufhpfcsbyh5923[address] [place], [place] [address]Dr. Airam Tripathi Albumin/Globulin [Mass ratio] 0.9 {ratio} Normal [facility] Comment on above: Performed By: #### C MP ####[facility] Fldxctenqf224[address] [place], [place] [address]Dr. Airam Deuce ALP [Catalytic activity/Vol] 109 U/L Normal 46-116 [facility] Comment on above: Performed By: #### C MP ####[facility] Fdljxwsddr2017 [place] [id number]. Airam Tripathi ALT [Catalytic activity/Vol] 25 U/L Normal 14-59 [facility] Comment on above: Performed By: #### C MP ####[facility] Oozjnsmljc7775 [place] [id number]. Airam Tripathi Anion gap [Moles/Vol] 10.9 mmol/L Normal Th e [facility] Comment on above: Performed By: #### C MP ####[facility] Dudbolqbqy6573 [place] [address]Dr. Airam Tripathi AST [Catalytic activity/Vol] 24 U/L Normal 15-37 [facility] Comment on above: Performed By: #### C MP ####[facility] Ncaqqjyoub7844[address] [place], [place] [address]Dr. Airam Tripathi Bilirubin [Mass/Vol] 0.3 mg/dL Normal 0.2-1.0 [facility] Comment on above: Performed By: #### C MP ####[facility] Rgphzhklgx411[address] [place], [place] [address]Dr. Selenaneil Tripathi Calcium [Mass/Vol] 8.6 mg/dL Normal 8.5-10.1 [facility] Comment on above: Performed By: #### C MP ####[facility] Jcmguselly58[address] [place], [place] [address]Dr. Airam Tripathi Chloride [Moles/Vol] 95 mmol/L Critically low 98-107 [facility] Comment on above: Performed By: #### C MP ####[facility] Cduzumokbq199[address] [place], [place] [address]Dr. Selenaneil Tripathi CO2 [Moles/Vol] 27.8 mmol/L Normal 21.0-32.0 [facility] Comment on above: Performed By: #### C MP ####[facility] Ctdpmtcozf76[address] [place], [place] [address]Dr. Airam Tripathi Creatinine [Mass/Vol] 1.07 mg/dL Critically high 0.55-1.02 [facility] Comment on above: Performed By: #### C MP ####[facility] Ssgxvusplu30[address] [place] [id number]. Airam Tripathi EGFR-AF BARBADIAN >60 Normal >=60 [facility] Comment on above: Performed By: #### C MP ####[facility] [facility] Ufmyldccbe2966 [place] [id number]. Airam Tripathi EGFR-NON AF BARBADIAN 52 mL/min/1.73m2 Critically low >=60 [facility] Comment on above: Performed By: #### C MP ####[facility] Ilxlzmijxp3564 [place] [id number]. Airam Tripathi Globulin (S) [Mass/Vol] 3.5 g/dL Normal [facility] Comment on above: Performed By: #### C MP ####[facility] Eszadgsduh2861 [place] [id number]. Airam Tripathi Glucose [Mass/Vol] 86 mg/dL Normal 74-106 [facility] Comment on above: Performed By: #### C MP ####[facility] Pfgsdvqclv1850 [place] [id number]. Airam Tripathi Potassium [Moles/Vol] 4.7 mmol/L Normal 3.5-5.1 [facility] Comment on above: Performed By: #### C MP ####[facility] Culeseckgv5136 [place] [id number]. Airam Tripathi Protein [Mass/Vol] 6.7 g/dL Normal 6.4-8.2 [facility] Comment on above: Performed By: #### C MP ####[facility] Orothldksb0855 [place] [id number]. Airam Tripathi Sodium [Moles/Vol] 129 mmol/L Critically low 136-145 Th [facility] Comment on above: Performed By: #### C MP ####[facility] Lxdntbtrlv2558 [place] [id number]. Airam Tripathi Urea nitrogen [Mass/Vol] 19.0 mg/dL Critically high 7.0-18.0 [facility] Comment on above: Performed By: #### C MP ####[facility] Fwluqsxfuo1391 [place] [id number]. Airam Tripathi Urea nitrogen/Creatinine [Mass ratio] 17.8 mg/mg Normal [facility] Comment on above: Performed By: #### C MP ####[facility] Orxpavsnwr6223 [place] [address]Dr. Airam Tripathi PROF CHEM 8 (BAS METB)on Anion gap [Moles/Vol] 9.0 mmol/L Normal [facility] Comment on above: Performed By: #### B SUPERVISOR DIALS, BMP ####[facility] Iiagcsvqii9064 [place] [address]Dr. Airam Tripathi Calcium [Mass/Vol] 8.5 mg/dL Normal 8.5-10.1 [facility] Comment on above: Performed By: #### B SUPERVISOR DIALS, BMP ####[facility] [address] [place], [place] [address]Dr. Airam Tripathi Chloride [Moles/Vol] 93 mmol/L Critically low 98-107 [facility] Comment on above: Performed By: #### B SUPERVISOR DIALS, BMP ####[facility] Fxjeqctavc[address] [place], [place] [address]Dr. Airam Tripathi CO2 [Moles/Vol] 28.1 mmol/L Normal 21.0-32.0 [facility] Comment on above: Performed By: #### B SUPERVISOR DIALS, BMP ####[facility] Fr[address]zz[address] [place], [place] [address]Dr. Airam Tripathi Creatinine [Mass/Vol] 1.17 mg/dL Critically high 0.55-1.02 [facility] Comment on above: Performed By: #### B SUPERVISOR DIALS, BMP ####[facility] Pdncitdkko3012 [place] [address]Dr. Airam Tripathi EGFR-AF BARBADIAN 57 mL/min/1.73m2 Critically low >=60 [facility] Comment on above: Performed By: #### B SUPERVISOR DIALS, BMP ####[facility] [address] [place], [place] [id number]. Airam Tripathi EGFR-NON AF BAR[place]IAN 47 mL/min/1.73m2 Critically low >=60 [facility] Comment on above: Performed By: #### B SUPERVISOR DIALS, BMP ####[facility] Bkfxkgoioq4285 [place] [address]Dr. Airam Tripathi Glucose [Mass/Vol] 107 mg/dL Critically high 74-106 T [facility] Comment on above: Performed By: #### B SUPERVISOR DIALS, BMP ####[facility] Juxshwipqb9780 [place] [address]Dr. Airam Tripathi Potassium [Moles/Vol] 4.1 mmol/L Normal 3.5-5.1 [facility] Comment on above: Performed By: #### B SUPERVISOR DIALS, BMP ####[facility] Qfnlounbfw4813 [place] [address]Dr. Airam Tripathi Sodium [Moles/Vol] 126 mmol/L Critically low 136-145 Th [facility] Comment on above: Performed By: #### B SUPERVISOR DIALS, BMP ####[facility] Ddxzgcbqkh[address] [place], [place] [address]Dr. Airam Tripathi Urea nitrogen [Mass/Vol] 20.0 mg/dL Critically high 7.0-18.0 [facility] Comment on above: Performed By: #### B SUPERVISOR DIALS, BMP ####[facility] W[address]jyt[address] [place], [place] [address]Dr. Airam Tripathi Urea nitrogen/Creatinine [Mass ratio] 17.1 mg/mg Normal [facility] Comment on above: Performed By: #### B SUPERVISOR DIALS, BMP ####[facility] Ucgprpronq[address] [place], [place] [address]Dr. Airam Tripathi XR CHEST 1 Von 11-03-2022 XR CHEST 1 V Normal [facility] Activated partial thrombopla stin time (aPTT) in platelet poor plasma by coagulation aOrdered By: Favian Helm on 10-28-2022 aPTT Coag (PPP) [Time] 31.7 s 25.1-36.5 [facility] Alanine aminotransferase [En zymatic activity/volume] in Serum or PlasmaOrdered By: Favian Helm on 10-28-2022 ALT [Catalytic activity/Vol] 14 U/L 7-52 [facility] Albumin [Mass/volume] in Ser um or Plasma by Bromocresol green (BCG) dye binding methoOrdered By: Favian Helm on 10-28-2022 Albumin BCG dye [Mass/Vol] 3.6 g/dL 3.5-5.7 [facility] Alkaline phosphatase [Enzyma tic activity/volume] in Serum or PlasmaOrdered By: Favian Helm on 10-28-2022 ALP [Catalytic activity/Vol] 84 U/L 34-104 [facility] Aspartate aminotransferase [ Enzymatic activity/volume] in Serum or PlasmaOrdered By: Favian Helm on 10-28-2022 AST [Catalytic activity/Vol] 21 U/L 13-39 [facility] B-Type Natriuretic Peptideon 10-28-2022 Natriuretic peptide B (Bld) [Mass/Vol] 551.0 pg/mL High 5-100 [facility] Comment on above: Result Comment: PERF ORMED BY: [place] [address] PATHOLOGIST PRODUCTION LINE WORKER TANNER GAVIN M.D. Performed By: #### M G, [id number], RETIC, FE and TIBC, JOSE, BMP #### [facility] [address] Basophils Auto (Bld) [#/Vol] Ordered By: Favian Helm on 10-28-2022 Basophils (Bld) [#/Vol] 0.0 10*3/uL 0.0-0.2 [facility] Basophils/100 WBC Auto (Bld) Ordered By: Favian Helm on 10-28-2022 Basophils/100 WBC (Bld) 0.4 % . [facility] Bilirubin.total [Mass/volume ] in Serum or PlasmaOrdered By: Favian Helm on 10-28-2022 Bilirubin [Mass/Vol] 0.3 mg/dL 0.3-1.0 [facility] CT head/brain wo conon 10-28 CT head/brain wo con [facility] [place] [address] [place] [address] CT Scan Report Signed Patient: Mabel Moser MR#: [id number] : 1960 Acct:[id number] Age/Sex: 62 / F ADM Date: 10/28/22 Loc: ER Room: Type: [facility] ER Attending Dr: Copies to: [...] Baljinder Ball M.D.10/28/2022 7:46 PM Dictation Location: [place] [address] Transcribed By: [facility] 10/28/221945 Dictated By: Baljinder Ball DO 10/28/221934 Signed By: 10/28/221945 Normal [facility] Calcium [Mass/volume] in Ser um or PlasmaOrdered By: Favian Helm on 10-28-2022 Calcium [Mass/Vol] 8.2 mg/dL 8.6-10.3 [facility] Carbon dioxide, total [Moles /volume] in Serum or PlasmaOrdered By: Favian Helm on 10-28-2022 CO2 [Moles/Vol] 25.7 mmol/L 21.0-31.0 [facility] Chloride [Moles/volume] in S andrea or PlasmaOrdered By: Favian Helm on 10-28-2022 Chloride [Moles/Vol] 98 mmol/L 98-107 [facility] Complete Blood Count Auto Di ffon 10-28-2022 Basophils (Bld) [#/Vol] 0.0 10*3/uL Normal 0.0-0.2 [facility] Comment on above: Result Comment: PERF ORMED BY: [place] [address] PATHOLOGIST PRODUCTION LINE WORKER TANNER GAVIN M.D. Performed By: #### M G, [id number], RETIC, FE and TIBC, JOSE, BMP #### [address] Basophils/100 WBC (Bld) 0.4 % Normal . [facility] Comment on above: Performed By: #### M G, [id number], RETIC, FE and TIBC, JOSE, BMP #### [address] Eosinophils (Bld) [#/Vol] 0.1 10*3/uL Normal 0.0-0.45 [facility] Comment on above: Performed By: #### M G, [id number], RETIC, FE and TIBC, JOSE, BMP #### [address] Eosinophils/100 WBC (Bld) 1.0 % Normal . [facility] Comment on above: Performed By: #### M G, [id number], RETIC, FE and TIBC, JOSE, BMP #### [address] Erythrocyte distribution width (RBC) [Ratio] 16.5 % High 11.9-15.3 [facility] Comment on above: Performed By: #### M G, [id number], RETIC, FE and TIBC, JOSE, BMP #### [address] Hematocrit (Bld) [Volume fraction] 29.9 % Low 34.0-46.4 [facility] Comment on above: Performed By: #### M G, [id number], RETIC, FE and TIBC, JOSE, BMP #### [address] Hemoglobin (Bld) [Mass/Vol] 9.6 g/dL Low 11.8-15.4 [facility] Comment on above: Performed By: #### M G, [id number], RETIC, FE and TIBC, JOSE, BMP #### [address] Lymphocytes (Bld) [#/Vol] 0.8 10*3/uL Low 1.00-4.8 [facility] Comment on above: Performed By: #### M G, [id number], RETIC, FE and TIBC, JOSE, BMP #### [address] Lymphocytes/100 WBC (Bld) 12.8 % Normal . [facility] Comment on above: Performed By: #### M G, [id number], RETIC, FE and TIBC, JOSE, BMP #### [address] MCH (RBC) [Entitic mass] 28.3 pg Normal 24.7-34.3 [facility] Comment on above: Performed By: #### M G, [id number], RETIC, FE and TIBC, JOSE, BMP #### [address] MCV (RBC) [Entitic vol] 88.3 fL Normal 80-100 [facility] Comment on above: Performed By: #### M G, [id number], RETIC, FE and TIBC, JOSE, BMP #### [address] Mean Corpuscular HGB Conc 32.0 g/dL Normal 32.0-35.0 [facility] Comment on above: Performed By: #### M G, [id number], RETIC, FE and TIBC, JOSE, BMP #### [address] Monocytes (Bld) [#/Vol] 0.2 10*3/uL Normal 0.0-0.8 [facility] Comment on above: Performed By: #### M G, [id number], RETIC, FE and TIBC, JOSE, BMP #### [address] Monocytes/100 WBC (Bld) 17.29 % Normal 0.00-20.00 [facility] Comment on above: Performed By: #### M G, [id number], RETIC, FE and TIBC, JOSE, BMP #### [address] Monocytes/100 WBC (Bld) 2.5 % Normal . [facility] Comment on above: Performed By: #### M G, [id number], RETIC, FE and TIBC, JOSE, BMP #### [address] Neutrophils (Bld) [#/Vol] 5.5 10*3/uL Normal 1.8-7.7 [facility] Comment on above: Performed By: #### M G, [id number], RETIC, FE and TIBC, JOSE, BMP #### [address] Neutrophils/100 WBC (Bld) 83.3 % Normal . [facility] Comment on above: Performed By: #### M G, [id number], RETIC, FE and TIBC, JOSE, BMP #### [address] NRBC% 0.0 /100{WBC} Normal 0-0.5 [facility] Comment on above: Performed By: #### M G, [id number], RETIC, FE and TIBC, JOSE, BMP #### [address] Platelet mean volume (Bld) [Entitic vol] 7.3 fL Normal 6.3-10.7 [facility] Comment on above: Performed By: #### M G, [id number], RETIC, FE and TIBC, JOSE, BMP #### [address] [place] [address] [place] Platelets (Bld) [#/Vol] 260 10*3/uL Normal 150-450 [facility] Comment on above: Performed By: #### M G, [id number], RETIC, FE and TIBC, JOSE, BMP #### [address] RBC (Bld) [#/Vol] 3.38 10*6/uL Low 3.60-5.00 [facility] Comment on above: Performed By: #### M G, [id number], RETIC, FE and TIBC, JOSE, BMP #### [address] WBC (Bld) [#/Vol] 6.6 10*3/uL Normal 3.8-11.6 [facility] Comment on above: Performed By: #### Nadya G, [id number], RETIC, FE and TIBC, JOSE, BMP #### [address] Comprehensive Metabolic Pane elena 10-28-2022 Albumin [Mass/Vol] 3.6 g/dL Normal 3.5-5.7 [facility] Comment on above: Performed By: #### M G, [id number], RETIC, FE and TIBC, JOSE, BMP #### [address] Albumin/Globulin [Mass ratio] 1.6 {ratio} Normal [facility] Comment on above: Performed By: #### M G, [id number], RETIC, FE and TIBC, JOSE, BMP #### [address] ALP [Catalytic activity/Vol] 84 U/L Normal 34-104 [facility] Comment on above: Performed By: #### M G, [id number], RETIC, FE and TIBC, JOSE, BMP #### [address] ALT [Catalytic activity/Vol] 14 U/L Normal 7-52 [facility] Comment on above: Performed By: #### M G, [id number], RETIC, FE and TIBC, JOSE, BMP #### [address] Anion gap [Moles/Vol] 10.0 mmol/L Normal 6.0-15.0 [facility] Comment on above: Performed By: #### M G, [id number], RETIC, FE and TIBC, JOSE, BMP #### [address] AST [Catalytic activity/Vol] 21 U/L Normal 13-39 [facility] Comment on above: Performed By: #### M G, [id number], RETIC, FE and TIBC, JOSE, BMP #### [address] Bilirubin [Mass/Vol] 0.3 mg/dL Normal 0.3-1.0 [facility] Comment on above: Performed By: #### M G, [id number], RETIC, FE and TIBC, JOSE, BMP #### [address] Calcium [Mass/Vol] 8.2 mg/dL Low 8.6-10.3 [facility] Comment on above: Performed By: #### M G, [id number], RETIC, FE and TIBC, JOSE, BMP #### [facility] [address] [place] [address] Chloride [Moles/Vol] 98 mmol/L Normal 98-107 [facility] Comment on above: Performed By: #### M G, [id number], RETIC, FE and TIBC, JOSE, BMP #### [address] CO2 [Moles/Vol] 25.7 mmol/L Normal 21.0-31.0 [facility] Comment on above: Performed By: #### M G, [id number], RETIC, FE and TIBC, JOSE, BMP #### [address] [place] [address] [place] Creatinine [Mass/Vol] 1.23 mg/dL High 0.60-1.20 [facility] Comment on above: Performed By: #### M G, [id number], RETIC, FE and TIBC, JOSE, BMP #### [facility] [address] Creatinine Clr Calc Pharmacy 48.79 [facility] Comment on above: Performed By: #### M G, [id number], RETIC, FE and TIBC, JOSE, BMP #### [facility] [address] GFR/1.73 sq M.predicted MDRD (S/P/Bld) [Vol rate/Area] 50.309 mL/min/{1.73_m2} [facility] Comment on above: Performed By: #### M G, [id number], RETIC, FE and TIBC, JOSE, BMP #### [address] Globulin (S) [Mass/Vol] 2.3 g/dL [facility] Comment on above: Performed By: #### M G, [id number], RETIC, FE and TIBC, JOSE, BMP #### [address] Glucose [Mass/Vol] 98 mg/dL Normal 70-100 [facility] Comment on above: Result Comment: [facility] Glucose Reference Range is dependent on time and content of last meal. Glucose of more than 200 mg/dL in a nonstressed, ambulatory subject supports the diagnosis of Diabetes Mellitus. ADA recommended reference range Performed By: #### M G, [id number], RETIC, FE and TIBC, JOSE, BMP #### [address] Potassium [Moles/Vol] 4.7 mmol/L Normal 3.5-5.1 [facility] Comment on above: Performed By: #### M G, [id number], RETIC, FE and TIBC, JOSE, BMP #### [facility] [address] Protein [Mass/Vol] 5.9 g/dL Low 6.4-8.9 [facility] Comment on above: Performed By: #### M G, [id number], RETIC, FE and TIBC, JOSE, BMP #### [facility] [address] Sodium [Moles/Vol] 129 mmol/L Low 136-145 [facility] Comment on above: Performed By: #### M G, [id number], RETIC, FE and TIBC, JOSE, BMP #### [facility] [address] Urea nitrogen [Mass/Vol] 36 mg/dL High 7-25 [facility] Comment on above: Performed By: #### M G, [id number], RETIC, FE and TIBC, JOSE, BMP #### [facility] [address] Creatine Kinaseon 10-28-2022 CK [Catalytic activity/Vol] 45 U/L Normal [facility] Comment on above: Performed By: #### M G, [id number], RETIC, FE and TIBC, JOSE, BMP #### [address] Creatine kinase [Enzymatic a ctivity/volume] in Serum or PlasmaOrdered By: Favian Helm on 10-28-2022 CK [Catalytic activity/Vol] 45 U/L [facility] Creatinine [Mass/volume] in Serum or PlasmaOrdered By: Favian Helm on 10-28-2022 Creatinine [Mass/Vol] 1.23 mg/dL 0.60-1.20 [facility] ECG 12 lead ECGon 10-28-2022 ECG 12 lead ECG [facility] [place] [address] [place] [address] Electrocardiograph Report Signed Patient: Mabel Moser MR#: [id number] : 1960 Acct:[id number] Age/Sex: 62 / F ADM Date: 10/28/22 Loc: ER Room: Type: [facility] ER Attending Dr: Ordering Provider: Favian [...] normal variant Confirmed by Chris MAURO DO ([id number]) on 10/28/2022 8:40:44 PM Referred By: Electronically Signed By:Chris MAURO DO Transcribed By: MUS Signed By Chris Mauro DO 0 10/28/222039 Normal [facility] Eosinophils Auto (Bld) [#/Vo l]Ordered By: Favian Helm on 10-28-2022 Eosinophils (Bld) [#/Vol] 0.1 10*3/uL 0.0-0.45 [facility] Eosinophils/100 WBC Auto (Bl d)Ordered By: Favian Helm on 10-28-2022 Eosinophils/100 WBC (Bld) 1.0 % . [facility] Erythrocyte distribution wid th Auto (RBC) [Ratio]Ordered By: Favian Helm on 10-28-2022 Erythrocyte distribution width (RBC) [Ratio] 16.5 % 11.9-15.3 [facility] Globulin Calc (S) [Mass/Vol] Ordered By: Favian Helm on 10-28-2022 Globulin (S) [Mass/Vol] 2.3 g/dL [facility] Glucose [Mass/volume] in Ser um or PlasmaOrdered By: Favian Helm on 10-28-2022 Glucose [Mass/Vol] 98 mg/dL 70-100 [facility] Comment on above: ADA recommended refe rence rangeRandom Glucose Reference Range is dependent on time and content of last meal. Glucose of more than 200 mg/dL in a nonstressed, ambulatory subject supports the diagnosis of Diabetes Mellitus. Hematocrit Auto (Bld) [Volum e fraction]Ordered By: Favian Helm on 10-28-2022 Hematocrit (Bld) [Volume fraction] 29.9 % 34.0-46.4 [facility] Hemoglobin [Mass/volume] in BloodOrdered By: Favian Helm on 10-28-2022 Hemoglobin (Bld) [Mass/Vol] 9.6 g/dL 11.8-15.4 [facility] Laboratory - CoagulationOrde red By: Favian Helm on 10-28-2022 PT Coag (PPP) [Time] 11.0 s 9.0-12.9 [facility] Leukocytes [#/volume] correc nicol for nucleated erythrocytes in Blood by Automated counOrdered By: Favian Helm on 10-28-2022 WBC corrected for nucl RBC Auto (Bld) [#/Vol] 6.6 10*3/uL 3.8-11.6 [facility] Lymphocytes Auto (Bld) [#/Vo l]Ordered By: Favian Helm on 10-28-2022 Lymphocytes (Bld) [#/Vol] 0.8 10*3/uL 1.00-4.8 [facility] Lymphocytes/100 WBC Auto (Bl d)Ordered By: Favian Helm on 10-28-2022 Lymphocytes/100 WBC (Bld) 12.8 % . [facility] MCH Auto (RBC) [Entitic mass ]Ordered By: Favian Helm on 10-28-2022 MCH (RBC) [Entitic mass] 28.3 pg 24.7-34.3 [facility] MCHC Auto (RBC) [Mass/Vol]Or dered By: Favian Helm on 10-28-2022 MCHC (RBC) [Mass/Vol] 32.0 g/dL 32.0-35.0 [facility] MCV Auto (RBC) [Entitic vol] Ordered By: Favian Helm on 10-28-2022 MCV (RBC) [Entitic vol] 88.3 fL 80-100 [facility] Magnesiumon 10-28-2022 Magnesium [Mass/Vol] 1.9 mg/dL Normal 1.9-2.7 [facility] Comment on above: Result Comment: PERF ORMED BY: [facility] [address] [place] [address] PATHOLOGIST PRODUCTION LINE WORKER TANNER GAVIN M.D. Performed By: #### M G, [id number], RETIC, FE and TIBC, JOSE, BMP #### [address] Magnesium [Mass/volume] in S andrea or PlasmaOrdered By: Favian Helm on 10-28-2022 Magnesium [Mass/Vol] 1.9 mg/dL 1.9-2.7 [facility] Monocyte distribution width [Entitic volume] in Blood by AutomatedOrdered By: Favian Helm on 10-28-2022 Monocyte distribution width Auto (Bld) [Entitic vol] 17.29 % 0.00-20.00 [facility] Monocytes Auto (Bld) [#/Vol] Ordered By: Favian Helm on 10-28-2022 Monocytes (Bld) [#/Vol] 0.2 10*3/uL 0.0-0.8 [facility] Monocytes/100 WBC Auto (Bld) Ordered By: Favian Helm on 10-28-2022 Monocytes/100 WBC (Bld) 2.5 % . [facility] Natriuretic peptide B [Mass/ Vol]Ordered By: Favian Helm on 10-28-2022 Natriuretic peptide B (Bld) [Mass/Vol] 551.0 pg/mL 5-100 [facility] Neutrophils Auto (Bld) [#/Vo l]Ordered By: Favian Helm on 10-28-2022 Neutrophils (Bld) [#/Vol] 5.5 10*3/uL 1.8-7.7 [facility] Neutrophils/100 WBC Auto (Bl d)Ordered By: Favian Helm on 10-28-2022 Neutrophils/100 WBC (Bld) 83.3 % . [facility] No Panel InformationOrdered By: Favian Helm on 10-28-2022 Estimated GFR (CKD-EPI) 50.309 mL/Min [facility] Creatinine Clearance (Chem 48.79 [facility] Nucleated erythrocytes [Pres ence] in Blood by Automated countOrdered By: Favian Helm on 10-28-2022 Nucleated RBC Auto Ql (Bld) 0.0 /100{WBC} 0-0.5 [facility] Office Visiton 10-28-2022 Follow-up visit [id number] Loren Moser 1960 F Date Provider Department Center 10/28/2022 RHIANNON MEDINA [facility]VON[facility] No family history on file Level of Service:32024 ME OFFICE/OUTPATIENT ESTABLISHED MOD MDM 30-39 MIN Normal [facility] Partial Thromboplastin Timeo n 10-28-2022 aPTT Coag (Bld) [Time] 31.7 s Normal 25.1-36.5 [facility] Comment on above: Result Comment: PERF ORMED BY: [facility] [address] [place] [address] PATHOLOGIST PRODUCTION LINE WORKER TANNER GAVIN M.D. Performed By: #### M G, [id number], RETIC, FE and TIBC, JOSE, BMP #### [facility] [address] Platelet mean volume Auto (B ld) [Entitic vol]Ordered By: Favian Helm on 10-28-2022 Platelet mean volume (Bld) [Entitic vol] 7.3 fL 6.3-10.7 [facility] Platelet poor plasma interna tional normalized ratio (INR) by coagulation assay (relatOrdered By: Favian Helm on 10-28-2022 INR Coag (PPP) [Relative time] 1.0 {INR} [facility] Comment on above: INR Therapeutic Rang [...] 10-28-2022 Platelets (Bld) [#/Vol] 260 10*3/uL 150-450 [facility] Potassium [Moles/volume] in Serum or PlasmaOrdered By: Favian Helm on 10-28-2022 Potassium [Moles/Vol] 4.7 mmol/L 3.5-5.1 [facility] Protein [Mass/volume] in Ser um or PlasmaOrdered By: Favian Helm on 10-28-2022 Protein [Mass/Vol] 5.9 g/dL 6.4-8.9 [facility] Prothrombin Time INRon 10-28 INR Coag (PPP) [Relative time] 1.0 {INR} Normal [facility] Comment on above: Result Comment: INR [...] - 4.5 Performed By: #### M G, [id number], RETIC, FE and TIBC, JOSE, BMP #### [facility] [address] PT Coag (PPP) [Time] 11.0 s Normal 9.0-12.9 [facility] Comment on above: Performed By: #### M G, [id number], RETIC, FE and TIBC, JOSE, BMP #### [facility] [address] [place] [address] RBC Auto (Bld) [#/Vol]Ordere d By: Favain Helm on 10-28-2022 RBC (Bld) [#/Vol] 3.38 10*6/uL 3.60-5.00 [facility] Serum or plasma albumin/glob ulin mass ratioOrdered By: Favian Helm on 10-28-2022 Albumin/Globulin [Mass ratio] 1.6 {ratio} [facility] Serum or plasma anion gap de terminationOrdered By: Favian Helm on 10-28-2022 Anion gap [Moles/Vol] 10.0 mmol/L 6.0-15.0 [facility] Sodium [Moles/volume] in Ser um or PlasmaOrdered By: Favian Helm on 10-28-2022 Sodium [Moles/Vol] 129 mmol/L 136-145 [facility] Troponin I High Sensitivityo n 10-28-2022 Troponin I High Sensitivity 5.8 pg/mL Normal 0.0-15.0 [facility] Comment on above: Result Comment: PERF ORMED BY: [place] [address] PATHOLOGIST PRODUCTION [employer] WORKER TANNER GAVIN M.D. Performed By: #### M G, [id number], RETIC, FE and TIBC, JOSE, BMP #### [address] Troponin I.cardiac [Mass/vol ume] in Serum or Plasma by Detection limit <= 0.01 ng/Ordered By: Favian Helm on 10-28-2022 Troponin I.cardiac DL <= 0.01 ng/mL [Mass/Vol] 5.8 pg/mL 0.0-15.0 [facility] Urea nitrogen [Mass/volume] in Serum or PlasmaOrdered By: Favian Helm on 10-28-2022 Urea nitrogen [Mass/Vol] 36 mg/dL 7-25 [facility] WBC Auto (Bld) [#/Vol]Ordere d By: Favian Helm on 10-28-2022 WBC (Bld) [#/Vol] 6.6 10*3/uL 3.8-11.6 [facility] XR chest 2V*on 10-28-2022 XR chest 2V* [facility] [place] [address] [place], [place] [id number] XRay Report Signed Patient: Mabel Moser MR#: [id number] : 1960 Acct:[id number] Age/Sex: 62 / F ADM Date: 10/28/22 Loc: ER Room: Type: [facility] ER Attending Dr: Copies to: Favian Helm PA-C Ordering Provider: Favian Helm PA-C Date of Service: 10/28/22 XR/XR chest 2V*: Shortness of Breath/Dyspnea Plain film chest 2 view HISTORY: Fluid overload. Shortness of breath. Headache. COMPARISON: 08/31/2018 FINDINGS: SUPPORT DEVICES: None POSTSURGICAL CHANGES: Right Otqcai-g-Exio intact with tip overlying the distal SVC. HEART: Within normal limits PULMONARY RAI: Within normal limits MEDIASTINUM: Unremarkable LUNGS AND PLEURA: No acute lung process, pleural effusion or pneumothorax identified. BONY STRUCTURES: Intact ADDITIONAL FINDINGS None XR/XR chest 2V* IMPRESSION: No acute process. Impression dictated by: Baljinder Ball M.D.10/28/2022 7:50 PM Dictation Location: [place] [address] Transcribed By: [facility] 10/28/221949 Dictated By: Baljinder Ball DO 10/28/221945 Signed By: 10/28/221949 [facility] BNPon 10-26-2022 Natriuretic peptide B (Bld) [Mass/Vol] 2657.0 pg/mL Critically high <=900.0 [facility] Comment on above: Performed By: #### C MP, BNP ####[facility] Irmjovkiom[address] [place], [place] [address]DrKianna Tripathi CBC AUTO DIFFon 10-26-2022 BASO # 0.0 103/ul Normal 0.0-0.1 [facility] Comment on above: Performed By: #### C BC ####[facility] Vgxtqhorhd38[address] [place], [place] [address]Dr. Airam Tripathi Basophils/100 WBC (Bld) 0.5 % Normal 0.2-2.0 [facility] Comment on above: Performed By: #### C BC ####[facility] Lwduoyhhva[address] [place], [place] [address]DrKianna Tripathi EO # 0.3 103/ul Normal 0.0-0.7 [facility] Comment on above: Performed By: #### C BC ####[facility] Eexhaeixqh576[address] [place], [place] [address]DrKianna Tripathi Eosinophils/100 WBC (Bld) 4.8 % Normal 0.9-7.0 [facility] Comment on above: Performed By: #### C BC ####[facility] Epqumbaops734[address] [place], [place] [address]DrKianna Tripathi Erythrocyte distribution width (RBC) [Ratio] 15.5 % Critically high 11.0-15.0 [facility] Comment on above: Performed By: #### C BC ####[facility] W[address]kyxqpjk24[address] [place] [address]Dr. Airam Tripathi Hematocrit (Bld) [Volume fraction] 27.7 % Critically low 36.0-48.0 [facility] Comment on above: Performed By: #### C BC ####[facility] Runpgryqbd629[address] [place], [place] [address]Dr. Airam Tripathi Hemoglobin (Bld) [Mass/Vol] 8.8 g/dL Critically low 12.0-16.0 [facility] Comment on above: Performed By: #### C BC ####[facility] Fuxyienmzk[address] [place], [place] [address]Dr. Airam Tripathi IG # 0.03 10e3/ul Normal 0.00-0.03 [facility] Comment on above: Performed By: #### C BC ####[facility] Gcpfaruixz068[address] [place], [place] [address]Dr. Selenaneil Tripathi IG % 0.5 % Normal 0.0-0.5 [facility] Comment on above: Performed By: #### C BC ####[facility] Ylwejxrser2404[address] [place], [place] [address]DrKianna Airam Tripathi LYMPH # 1.6 103/ul Normal 1.2-3.8 [facility] Comment on above: Performed By: #### C BC ####[facility] Kibfusqitk[address] [place], [place] [address]DrKianna Selenaneil Tripathi Lymphocytes/100 WBC (Bld) 25.5 % Normal 20.5-60.0 [facility] Comment on above: Performed By: #### C BC ####[facility] Jatbgdctuv522[address] [place], [place] [address]DrKianna Selenaneil Tripathi MANUAL DIFF REQ NO Normal [facility] Comment on above: Performed By: #### C BC ####[facility] Zdblhmwjac3075[address] [place], [place] [address]DrKianna Tripathi MCH (RBC) [Entitic mass] 29.0 pg Normal 26.7-34.0 [facility] Comment on above: Performed By: #### C BC ####[facility] Ixhdmieucz3897 [place] [address]Dr. Airam Deuce MCHC (RBC) [Mass/Vol] 31.8 g/dL Normal 29.9-35.2 [facility] Comment on above: Performed By: #### C BC ####[facility] Ozecyimfnh[address] [place], [place] [address]DrKianna Tripathi MCV (RBC) [Entitic vol] 91.4 fL Normal 81.0-99.0 [facility] Comment on above: Performed By: #### C BC ####[facility] Szgdvaiofj737[address] [place], [place] [address]DrKianna Tripathi MONO # 0.5 103/ul Normal 0.3-0.8 [facility] Comment on above: Performed By: #### C BC ####[facility] Rwwukpjgvw25[address] [place], [place] [address]Dr. Airam Tripathi Monocytes/100 WBC (Bld) 7.5 % Normal 1.7-12.0 [facility] Comment on above: Performed By: #### C BC ####[facility] Jgijcgvbgh1213[address] [place], [place] [address]DrKianna Tripathi NEUT # 3.9 103/ul Normal 1.4-6.5 [facility] Comment on above: Performed By: #### C BC ####[facility] Zfhvubsrnd0104[address] [place], [place] [address]Dr. Airam Tripathi Neutrophils/100 WBC (Bld) 61.2 % Normal 43.0-75.0 [facility] Comment on above: Performed By: #### C BC ####[facility] Sulrygdyek[address] [place], [place] [address]DrKianna Tripathi Platelet mean volume (Bld) [Entitic vol] 9.4 fL Critically low 9.5-13.5 [facility] Comment on above: Performed By: #### C BC ####[facility] Lnoerwrvbk6875[address] [place], [place] [address]Dr. Airam Tripathi PLT 247 103/ul Normal 150-450 [facility] Comment on above: Performed By: #### C BC ####[facility] Atsprresdk5817 [place] [address]Dr. Selenaneil Deuce RBC 3.03 106/ul Critically low 4.20-5.40 [facility] Comment on above: Performed By: #### C BC ####[facility] Ecrbtzcvxy0190 [place] [address]Dr. Airam Tripathi WBC 6.4 103/ul Normal 4.0-11.0 [facility] Comment on above: Performed By: #### C BC ####[facility] Fvvkgzuxnz6905 [place] [address]DrKianna Tripathi PROF 14(COMP METB)on 023 Albumin [Mass/Vol] 2.5 g/dL Critically low 3.4-5.0 [facility] Comment on above: Performed By: #### C MP, BNP ####[facility] Ubqbkkvhpe128[address] [place], [place] [address]Dr. Airam Tripathi Albumin/Globulin [Mass ratio] 0.9 {ratio} Normal [facility] Comment on above: Performed By: #### C MP, BNP ####[facility] Duxajrudlv0187 [place] [address]Dr. Airam Tripathi ALP [Catalytic activity/Vol] 108 U/L Normal 46-116 [facility] Comment on above: Performed By: #### C MP, BNP ####[facility] Uutfaefoiz6602 [place] [address]Dr. Airam Tripathi ALT [Catalytic activity/Vol] 20 U/L Normal 14-59 [facility] Comment on above: Performed By: #### C MP, BNP ####[facility] Ctjklemxhj1335 [place] [address]DrKianna Tripathi Anion gap [Moles/Vol] 10.4 mmol/L Normal [facility] Comment on above: Performed By: #### C MP, BNP ####[facility] Ejlxployax2699[address] [place], [place] [address]Dr. Airam Tripathi AST [Catalytic activity/Vol] 20 U/L Normal 15-37 [facility] Comment on above: Performed By: #### C MP, BNP ####[facility] Pjpikzmfkm7668 [place] [address]Dr. Airam Tripathi Bilirubin [Mass/Vol] 0.2 mg/dL Normal 0.2-1.0 [facility] Comment on above: Performed By: #### C MP, BNP ####[facility] Argrghonom634[address] [place], [place] [address]Dr. Airam Tripathi Calcium [Mass/Vol] 8.0 mg/dL Critically low 8.5-10.1 [facility] Comment on above: Performed By: #### C MP, BNP ####[facility] Lygvazaoih360[address] [place], [place] [address]Dr. Airam Tripathi Chloride [Moles/Vol] 100 mmol/L Normal 98-107 [facility] Comment on above: Performed By: #### C MP, BNP ####[facility] Ndaseptshv314[address] [place], [place] [address]Dr. Airam Tripathi CO2 [Moles/Vol] 28.6 mmol/L Normal 21.0-32.0 [facility] Comment on above: Performed By: #### C MP, BNP ####[facility] Hwiignmnvh2034[address] [place], [place] [address]Dr. Airam Tripathi Creatinine [Mass/Vol] 1.66 mg/dL Critically high 0.55-1.02 [facility] Comment on above: Performed By: #### C MP, BNP ####[facility] Oovmwvfxsl423[address] [place], [place] [address]Dr. Airam Tripathi EGFR-AF BARBADIAN 38 mL/min/1.73m2 Critically low >=60 [facility] Comment on above: Performed By: #### C MP, BNP ####[facility] Dcaolsmmio715[address] [place], [place] [address]Dr. Airam Tripathi EGFR-NON AF BAR[place]IAN 32 mL/min/1.73m2 Critically low >=60 [facility] Comment on above: Performed By: #### C MP, BNP ####[facility] Dwvzuicjji7637[address] [place], [place] [address]Dr. Airam Tripathi Globulin (S) [Mass/Vol] 2.8 g/dL Normal [facility] Comment on above: Performed By: #### C MP, BNP ####[facility] Fxauohwodw437[address] [place], [place] [address]Dr. Airam Tripathi Glucose [Mass/Vol] 102 mg/dL Normal 74-106 [facility] Comment on above: Performed By: #### C MP, BNP ####[facility] Pptvspbvao741[address] [place], [place] [address]Dr. Airam Tripathi Potassium [Moles/Vol] 5.0 mmol/L Normal 3.5-5.1 [facility] Comment on above: Performed By: #### C MP, BNP ####[facility] Baihqdshye580[address] [place], [place] [address]Dr. Airam Tripathi Protein [Mass/Vol] 5.3 g/dL Critically low 6.4-8.2 [facility] Comment on above: Performed By: #### C MP, BNP ####[facility] Uxrfuwccju0422[address] [place], [place] [address]Dr. Airam Tripathi Sodium [Moles/Vol] 134 mmol/L Critically low 136-145 [facility] Comment on above: Performed By: #### C MP, BNP ####[facility] Htdqiwqybd747[address] [place], [place] [address]Dr. Airam Tripathi Urea nitrogen [Mass/Vol] 45.0 mg/dL Critically high 7.0-18.0 [facility] Comment on above: Performed By: #### C MP, BNP ####[facility] Ekpjyjuhbi56[address] [place], [place] [address]Dr. Airam Tripathi Urea nitrogen/Creatinine [Mass ratio] 27.1 mg/mg Normal [facility] Comment on above: Performed By: #### C MP, BNP ####[facility] Burmywmizo7834[address] [place], [place] [address]Dr. Airam Tripathi BNPon 10-25-2022 Natriuretic peptide B (Bld) [Mass/Vol] 4569.0 pg/mL Critically high <=900.0 [facility] Comment on above: Performed By: #### C MP, BNP ####[facility] Cwodhfydgh0899 [place] [address]Dr. Airam Deuce CBC AUTO DIFFon 10-25-2022 BASO # 0.0 103/ul Normal 0.0-0.1 [facility] Comment on above: Performed By: #### C BC ####[facility] Jgijjjupxe430[address] [place], [place] [address]Dr. Selenaneil Tripathi Basophils/100 WBC (Bld) 0.5 % Normal 0.2-2.0 [facility] Comment on above: Performed By: #### C BC ####[facility] Ajxfrbdbof523[address] [place], [place] [address]Dr. Airam Tripathi EO # 0.3 103/ul Normal 0.0-0.7 [facility] Comment on above: Performed By: #### C BC ####[facility] Juezilladz4840[address] [place], [place] [address]Dr. Selenaneil Tripathi Eosinophils/100 WBC (Bld) 5.6 % Normal 0.9-7.0 [facility] Comment on above: Performed By: #### C BC ####[facility] Qadlnpwtah1901[address] [place], [place] [address]Dr. Airam Tripathi Erythrocyte distribution width (RBC) [Ratio] 15.7 % Critically high 11.0-15.0 [facility] Comment on above: Performed By: #### C BC ####[facility] Tsiyvfkxkn850[address] [place], [place] [address]Dr. Airam Tripathi Hematocrit (Bld) [Volume fraction] 30.1 % Critically low 36.0-48.0 [facility] Comment on above: Performed By: #### C BC ####[facility] Lfkpqfjndr63[address] [place], [place] [address]Dr. Airam Tripathi Hemoglobin (Bld) [Mass/Vol] 9.2 g/dL Critically low 12.0-16.0 [facility] Comment on above: Performed By: #### C BC ####[facility] Nddnaxkhky5971 [place] [address]Dr. Airam Tripathi IG # 0.03 10e3/ul Normal 0.00-0.03 [facility] Comment on above: Performed By: #### C BC ####[facility] Dfrbzqsjse6944 [place] [address]DrKianna Selenaneil Tripathi IG % 0.5 % Normal 0.0-0.5 [facility] Comment on above: Performed By: #### C BC ####[facility] Cpzowpautx[address] [place], [place] [address]DrKianna Selenaneil Tripathi LYMPH # 1.7 103/ul Normal 1.2-3.8 [facility] Comment on above: Performed By: #### C BC ####[facility] Ghnhejvisa213[address] [place], [place] [address]DrKianna Selenaneil Tripathi Lymphocytes/100 WBC (Bld) 28.9 % Normal 20.5-60.0 [facility] Comment on above: Performed By: #### C BC ####[facility] Dpeplfvdxu2890[address] [place], [place] [address]DrKianna Selenaneil Tripathi MANUAL DIFF REQ NO Normal [facility] Comment on above: Performed By: #### C BC ####[facility] Ppqspeapdq59[address] [place], [place] [address]DrKianna Airam Deuce MCH (RBC) [Entitic mass] 28.4 pg Normal 26.7-34.0 [facility] Comment on above: Performed By: #### C BC ####[facility] Sshzqfuvsm17[address] [place], [place] [address]DrKianna Airam Deuce MCHC (RBC) [Mass/Vol] 30.6 g/dL Normal 29.9-35.2 [facility] Comment on above: Performed By: #### C BC ####[facility] Uihiocrefo633[address] [place], [place] [address]DrKianna Selenaneil Tripathi MCV (RBC) [Entitic vol] 92.9 fL Normal 81.0-99.0 [facility] Comment on above: Performed By: #### C BC ####[facility] Wcgjmtniyk546[address] [place], [place] [address]Dr. Airam Tripathi MONO # 0.5 103/ul Normal 0.3-0.8 [facility] Comment on above: Performed By: #### C BC ####[facility] Xqdrtjkqfb5033 [place] [address]Dr. Airam Tripathi Monocytes/100 WBC (Bld) 8.5 % Normal 1.7-12.0 [facility] Comment on above: Performed By: #### C BC ####[facility] Dbkvmtfbuq9781 [place] [address]Dr. Airam Tripathi NEUT # 3.2 103/ul Normal 1.4-6.5 [facility] Comment on above: Performed By: #### C BC ####[facility] Eniclxxnwm1307 [place] [address]Dr. Airam Tripathi Neutrophils/100 WBC (Bld) 56.0 % Normal 43.0-75.0 [facility] Comment on above: Performed By: #### C BC ####[facility] Xufxjmbynh4027 [place] [address]Dr. Airam Tripathi Platelet mean volume (Bld) [Entitic vol] 9.4 fL Critically low 9.5-13.5 [facility] Comment on above: Performed By: #### C BC ####[facility] Tahmfoqwth6720 [place] [address]Dr. Airam Tripathi PLT 272 103/ul Normal 150-450 [facility] Comment on above: Performed By: #### C BC ####[facility] Mvhvfdsauc4756 [place] [address]Dr. Airam Tripathi RBC 3.24 106/ul Critically low 4.20-5.40 [facility] Comment on above: Performed By: #### C BC ####[facility] Ekyghevscv6967[address] [place], [place] [address]Dr. Airam Tripathi WBC 5.8 103/ul Normal 4.0-11.0 [facility] Comment on above: Performed By: #### C BC ####[facility] Yzfxenyoac5[address] [place], [place] [address]DrKianna Airam Tripathi OSMOLALITYon 10-25-2022 Osmolality [Osmolality] 282 mosm/kg Normal 275-295 [facility] Comment on above: Performed By: #### O SMO ####[facility] Obwoaojnqi5723 [place] [address]Dr. Airam Tripathi PROF 14(COMP METB)on 023 Albumin [Mass/Vol] 2.7 g/dL Critically low 3.4-5.0 [facility] Comment on above: Performed By: #### C MP, BNP ####[facility] Uzezbexyvh4736[address] [place], [place] [address]Dr. Airam Tripathi Albumin/Globulin [Mass ratio] 0.9 {ratio} Normal [facility] Comment on above: Performed By: #### C MP, BNP ####[facility] Wfmviixuqm1893 [place] [address]Dr. Airam Tripathi ALP [Catalytic activity/Vol] 122 U/L Critically high 46-116 [facility] Comment on above: Performed By: #### C MP, BNP ####[facility] Uopactujmo903[address] [place], [place] [address]Dr. Airam Tripathi ALT [Catalytic activity/Vol] 23 U/L Normal 14-59 [facility] Comment on above: Performed By: #### C MP, BNP ####[facility] Zfseenmrga2014 [place] [address]Dr. Airam Tripathi Anion gap [Moles/Vol] 10.5 mmol/L Normal [facility] Comment on above: Performed By: #### C MP, BNP ####[facility] Hlldjvnakl1790[address] [place], [place] [address]Dr. Airam Tripathi AST [Catalytic activity/Vol] 22 U/L Normal 15-37 [facility] Comment on above: Performed By: #### C MP, BNP ####[facility] Jtrivcbjhx2630[address] [place], [place] [address]Dr. Airam Tripathi Bilirubin [Mass/Vol] 0.2 mg/dL Normal 0.2-1.0 [facility] Comment on above: Performed By: #### C MP, BNP ####[facility] Zxidtcrbpe255[address] [place], [place] [address]Dr. Airam Tripathi Calcium [Mass/Vol] 8.3 mg/dL Critically low 8.5-10.1 Th [facility] Comment on above: Performed By: #### C MP, BNP ####[facility] Dusfehzoqx250[address] [place], [place] [address]Dr. Airam Tripathi Chloride [Moles/Vol] 102 mmol/L Normal 98-107 [facility] Comment on above: Performed By: #### C MP, BNP ####[facility] Rqqwpgvvpw5675[address] [place], [place] [address]Dr. Airam Tripathi CO2 [Moles/Vol] 29.7 mmol/L Normal 21.0-32.0 [facility] Comment on above: Performed By: #### C MP, BNP ####[facility] Ivjcynchmr0950[address] [place], [place] [address]Dr. Airam Tripathi Creatinine [Mass/Vol] 1.31 mg/dL Critically high 0.55-1.02 [facility] Comment on above: Performed By: #### C MP, BNP ####[facility] Hcspomgvwh80[address] [place], [place] [address]Dr. Airam Tripathi EGFR-AF BAR[place]IAN 50 mL/min/1.73m2 Critically low >=60 [facility] Comment on above: Performed By: #### C MP, BNP ####[facility] Dzepuqpbya44[address] [place], [place] [address]Dr. Airam Tripathi EGFR-NON AF [place] 41 mL/min/1.73m2 Critically low >=60 [facility] Comment on above: Performed By: #### C MP, BNP ####[facility] Cptpctvdor293[address] [place], [place] [address]Dr. Airam Tripathi Globulin (S) [Mass/Vol] 2.9 g/dL Normal [facility] Comment on above: Performed By: #### C MP, BNP ####[facility] Ceglddzzcw864[address] [place], [place] [address]Dr. Airam Tripathi Glucose [Mass/Vol] 94 mg/dL Normal 74-106 [facility] Comment on above: Performed By: #### C MP, BNP ####[facility] Rqhlsidnju4288 [place] [address]Dr. Airam Tripathi Potassium [Moles/Vol] 4.2 mmol/L Normal 3.5-5.1 [facility] Comment on above: Performed By: #### C MP, BNP ####[facility] Jzqslaapvl4787[address] [place], [place] [address]Dr. Airam Tripathi Protein [Mass/Vol] 5.6 g/dL Critically low 6.4-8.2 Th [facility] Comment on above: Performed By: #### C MP, BNP ####[facility] Cphtjhcgne487[address] [place], [place] [address]Dr. Airam Tripathi Sodium [Moles/Vol] 138 mmol/L Normal 136-145 [facility] Comment on above: Performed By: #### C MP, BNP ####[facility] Bdbawidaxu318[address] [place], [place] [address]Dr. Airam Tripathi Urea nitrogen [Mass/Vol] 33.0 mg/dL Critically high 7.0-18.0 [facility] Comment on above: Performed By: #### C MP, BNP ####[facility] Needbkwxxd845[address] [place], [place] [address]Dr. Airam Tripathi Urea nitrogen/Creatinine [Mass ratio] 25.2 mg/mg Normal [facility] Comment on above: Performed By: #### C MP, BNP ####[facility] Cocxvktemz1450[address] [place], [place] [address]Dr. Airam Tripathi BNPon 10-24-2022 Natriuretic peptide B (Bld) [Mass/Vol] 3805.0 pg/mL Critically high <=900.0 [facility] Comment on above: Performed By: #### H STROPN, BNP, CMP ####[facility] Ctejrtocgk464[address] [place], [place] [address]Dr. Airam Tripathi CBC AUTO DIFFon 10-24-2022 BASO # 0.0 103/ul Normal 0.0-0.1 [facility] Comment on above: Performed By: #### C BC ####[facility] Ufoudmkweh229[address] [place], [place] [address]Dr. Airam Tripathi Basophils/100 WBC (Bld) 0.3 % Normal 0.2-2.0 [facility] Comment on above: Performed By: #### C BC ####[facility] Nacvnxoplo[address] [place] [address]Dr. Airam Tripathi EO # 0.3 103/ul Normal 0.0-0.7 [facility] Comment on above: Performed By: #### C BC ####[facility] Fjzfcyntfm211[address] [place], [place] [address]Dr. Airam Tripathi Eosinophils/100 WBC (Bld) 4.2 % Normal 0.9-7.0 [facility] Comment on above: Performed By: #### C BC ####[facility] Apthgrbatw016[address] [place], [place] [address]Dr. Airam Tripathi Erythrocyte distribution width (RBC) [Ratio] 15.6 % Critically high 11.0-15.0 [facility] Comment on above: Performed By: #### C BC ####[facility] Kjuooyrtle[address] [place], [place] [address]Dr. Airam Tripathi Hematocrit (Bld) [Volume fraction] 30.0 % Critically low 36.0-48.0 [facility] Comment on above: Performed By: #### C BC ####[facility] Fdjvgcwrha[address] [place], [place] [address]Dr. Airam Tripathi Hemoglobin (Bld) [Mass/Vol] 9.3 g/dL Critically low 12.0-16.0 [facility] Comment on above: Performed By: #### C BC ####[facility] Yrejbrosfm[address] [place], [place] [address]Dr. Airam Tripathi IG # 0.03 10e3/ul Normal 0.00-0.03 [facility] Comment on above: Performed By: #### C BC ####[facility] Nddphbdjyi88[address] [place], [place] [address]Dr. Airam Tripathi IG % 0.5 % Normal 0.0-0.5 [facility] Comment on above: Performed By: #### C BC ####[facility] Elhjyqnjot[address] [place] [id number]. Airam Deuce LYMPH # 1.4 103/ul Normal 1.2-3.8 [facility] Comment on above: Performed By: #### C BC ####[facility] Yeqrxggfpp8718 [place] [address]Dr. Airam Deuce Lymphocytes/100 WBC (Bld) 22.5 % Normal 20.5-60.0 [facility] Comment on above: Performed By: #### C BC ####[facility] [address] [place] [address]Dr. Selenaneil Tripathi MANUAL DIFF REQ NO Normal [facility] Comment on above: Performed By: #### C BC ####[facility] Bedqjykgvb[address] [place] [address]Dr. Airam Deuce MCH (RBC) [Entitic mass] 28.7 pg Normal 26.7-34.0 [facility] Comment on above: Performed By: #### C BC ####[facility] Vqwtqlryrh[address] [place], [place] [address]Dr. Airam Deuce MCHC (RBC) [Mass/Vol] 31.0 g/dL Normal 29.9-35.2 [facility] Comment on above: Performed By: #### C BC ####[facility] Uzioxzgenp[address] [place], [place] [address]Dr. Selenaneil Tripathi MCV (RBC) [Entitic vol] 92.6 fL Normal 81.0-99.0 [facility] Comment on above: Performed By: #### C BC ####[facility] Rewjzqptqq[address] [place], [place] [address]Dr. Selenaneil Tripathi MONO # 0.4 103/ul Normal 0.3-0.8 [facility] Comment on above: Performed By: #### C BC ####[facility] Hhknifoseq[address] [place], [place] [address]Dr. Selenaneil Tripathi Monocytes/100 WBC (Bld) 7.3 % Normal 1.7-12.0 [facility] Comment on above: Performed By: #### C BC ####[facility] Prqgldjqnw[address] [place], [place] [address]Dr. Airam Tripathi NEUT # 3.9 103/ul Normal 1.4-6.5 [facility] Comment on above: Performed By: #### C BC ####[facility] [address]zxvdwr[address] [place] [address]Dr. Airam Tripathi Neutrophils/100 WBC (Bld) 65.2 % Normal 43.0-75.0 [facility] Comment on above: Performed By: #### C BC ####[facility] U[address]wjenepn[address] [place] [address]Dr. Airam Tripathi Platelet mean volume (Bld) [Entitic vol] 9.0 fL Critically low 9.5-13.5 [facility] Comment on above: Performed By: #### C BC ####[facility] Sghnqqaepn[address] [place] [address]Dr. Airam Tripathi PLT 247 103/ul Normal 150-450 [facility] Comment on above: Performed By: #### C BC ####[facility] Tcddknxdek[address] [place] [address]Dr. Airam Tripathi RBC 3.24 106/ul Critically low 4.20-5.40 [facility] Comment on above: Performed By: #### C BC ####[facility] Askqnspkhe[address] [place] [address]Dr. Airam Tripathi WBC 6.0 103/ul Normal 4.0-11.0 [facility] Comment on above: Performed By: #### C BC ####[facility] Kpcwfhtnhe[address] [place] [address]Dr. Airam Tripathi CULTURE URINEon 10-24-2022 CULTURE URINE Culture Observations : LIGHT GROWTH OF MIXED GENITAL GREGORY. NO POTENTIAL PATHOGENS SEEN. Normal [facility] Comment on above: Performed By: #### U RCX ####[facility] Vvxzvdcwmi[address] [place] [address]Dr. Airam Triptahi POINT OF CARE GLUCOSEon Glucose [Mass/Vol] 118 mg/dL Critically high 74-106 T [facility] Comment on above: Performed By: #### P OCGLUC ####[facility] Rprfwxbeze[address] [place] [address]Dr. Airam Tripathi PROF 14(COMP METB)on 023 Albumin [Mass/Vol] 3.1 g/dL Critically low 3.4-5.0 [facility] Comment on above: Performed By: #### H STROPN, BNP, CMP ####[facility] Qfypmadwel[address] [place] [address]Dr. Airam Tripathi Albumin/Globulin [Mass ratio] 1.0 {ratio} Normal [facility] Comment on above: Performed By: #### H STROPN, BNP, CMP ####[facility] J[address]tainnau[address] [place] [address]Dr. Airam Tripathi ALP [Catalytic activity/Vol] 131 U/L Critically high 46-116 [facility] Comment on above: Performed By: #### H STROPN, BNP, CMP ####[facility] K[address]hpgkpwv[address] [place] [address]Dr. Airam Tripathi ALT [Catalytic activity/Vol] 26 U/L Normal 14-59 [facility] Comment on above: Performed By: #### H STROPN, BNP, CMP ####[facility] Nvykzokhhg[address] [place], [place] [address]Dr. Airam Tripathi Anion gap [Moles/Vol] 11.2 mmol/L Normal [facility] Comment on above: Performed By: #### H STROPN, BNP, CMP ####[facility] Grtxojycno[address] [place] [address]Dr. Airam Tripathi AST [Catalytic activity/Vol] 31 U/L Normal 15-37 [facility] Comment on above: Performed By: #### H STROPN, BNP, CMP ####[facility] [address]emjhhsj[address] [place] [address]Dr. Airam Tripathi Bilirubin [Mass/Vol] 0.2 mg/dL Normal 0.2-1.0 [facility] Comment on above: Performed By: #### H STROPN, BNP, CMP ####[facility] S[address]tw[address] [place] [address]Dr. Airam Tripathi Calcium [Mass/Vol] 8.6 mg/dL Normal 8.5-10.1 [facility] Comment on above: Performed By: #### H STROPN, BNP, CMP ####[facility] Wnwgmrjneb5[address] [place] [address]Dr. Airam Tripathi Chloride [Moles/Vol] 102 mmol/L Normal 98-107 [facility] Comment on above: Performed By: #### H STROPN, BNP, CMP ####[facility] Gdqpvjkpha7[address] [place] [address]Dr. Airam Tripathi CO2 [Moles/Vol] 27.4 mmol/L Normal 21.0-32.0 [facility] Comment on above: Performed By: #### H STROPN, BNP, CMP ####[facility] Ed[address]hrexzp[address] [place] [address]Dr. Airam Tripathi Creatinine [Mass/Vol] 1.23 mg/dL Critically high 0.55-1.02 [facility] Comment on above: Performed By: #### H STROPN, BNP, CMP ####[facility] J[address]zvuzahn[address] [place] [address]Dr. Airam Tripathi EGFR-AF BARBADIAN 54 mL/min/1.73m2 Critically low >=60 [facility] Comment on above: Performed By: #### H STROPN, BNP, CMP ####[facility] [address]wcrh[address] [place] [address]Dr. Airam Tripathi EGFR-NON AF BARBADIAN 45 mL/min/1.73m2 Critically low >=60 [facility] Comment on above: Performed By: #### H STROPN, BNP, CMP ####[facility] [address]oddvij[address] [place] [address]Dr. Airam Tripathi Globulin (S) [Mass/Vol] 3.1 g/dL Normal [facility] Comment on above: Performed By: #### H STROPN, BNP, CMP ####[facility] Rmwtmamujl[address] [place] [address]Dr. Airam Tripathi Glucose [Mass/Vol] 90 mg/dL Normal 74-106 [facility] Comment on above: Performed By: #### H STROPN, BNP, CMP ####[facility] Mrolfknngr[address] [place] [address]Dr. Airam Tripathi Potassium [Moles/Vol] 5.6 mmol/L Critically high 3.5-5.1 [facility] Comment on above: Performed By: #### H STROPN, BNP, CMP ####[facility] Ajrcyopgol[address] [place] [address]Dr. Airam Tripathi Protein [Mass/Vol] 6.2 g/dL Critically low 6.4-8.2 [facility] Comment on above: Performed By: #### H STROPN, BNP, CMP ####[facility] Qubfdqgsli[address] [place] [address]Dr. Airam Tripathi Sodium [Moles/Vol] 135 mmol/L Critically low 136-145 [facility] Comment on above: Performed By: #### H STROPN, BNP, CMP ####[facility] Iulwdiioxf33[address] [place] [address]Dr. Airam Tripathi Urea nitrogen [Mass/Vol] 38.0 mg/dL Critically high 7.0-18.0 [facility] Comment on above: Performed By: #### H STROPN, BNP, CMP ####[facility] Qwpqkpdvbf[address] [place], [place] [address]Dr. Airam Tripathi Urea nitrogen/Creatinine [Mass ratio] 30.9 mg/mg Normal [facility] Comment on above: Performed By: #### H STROPN, BNP, CMP ####[facility] Unt[address]rerwn[address] [place] [address]Dr. Airam Tripathi TROPONIN, HIGH SENSITIVITYon 10-24-2022 HSTROP 8.0 pg/mL Normal 4.0-51.3 [facility] Comment on above: Result Comment: CUT- OFF POINTS HAVE BEEN ESTABLISHED BASED ON THE FOURTH UNIVERSAL DEFINITIONS OF MYOCARDIALINFARCTION. THE UPPER REFERENCE LIMIT (URL) OF TROPONIN, DEFINED THE 99TH PERCENTILE OFcTnI DISTRIBUTION IN A REFERENCE POPULATION, HAS BEEN CONFIRMED THE DECISION THRESHOLDFOR DE DIAGNOSIS. Performed By: #### H STROPN, BNP, CMP ####[facility] Q[address]qpvzctcs[address] [place], [place] [address]Dr. Airam Trpiathi UA RANDOM W/MICROSCOPICon BACTERIA NONE SEEN Normal NONE SEEN [facility] Comment on above: Performed By: #### U AMIC ####[facility] [address]clxedb[address] [place] [address]Dr. Airam Tripathi Bilirubin Ql (U) Negative Normal NEGATIVE [facility] Comment on above: Performed By: #### U AMIC ####[facility] [address]ek[address] [place] [address]Dr. Airam Tripathi CAST NONE SEEN Normal NONE SEEN [facility] Comment on above: Performed By: #### U AMIC ####[facility] V[address]jymxz[address] [place] [address]Dr. Airam Tripathi Clarity (U) CLEAR Normal CLEAR [facility] Comment on above: Performed By: #### U AMIC ####[facility] Y[address]ucuih[address] [place] [address]Dr. Airam Tripathi Color (U) LT. YELLOW Normal YELLOW [facility] Comment on above: Performed By: #### U AMIC ####[facility] Klpvphbwty7[address] [place] [address]Dr. Aiarm Tripathi Crystals LM Nom (Urine sed) NONE SEEN Normal NONE SEEN [facility] Comment on above: Performed By: #### U AMIC ####[facility] Ovivrfrhvo[address] [place] [address]Dr. Airam Tripathi Epithelial cells LM Ql (Urine sed) RARE Normal NONE SEEN /RARE [facility] Comment on above: Performed By: #### U AMIC ####[facility] Iymqmlblxk[address] [place] [address]Dr. Airam Tripathi Glucose Ql (U) Negative Normal NEGATIVE [facility] Comment on above: Performed By: #### U AMIC ####[facility] Umhztanvui[address] [place] [address]Dr. Airam Tripathi Hemoglobin Ql (U) Negative Normal NEGATIVE [facility] Comment on above: Performed By: #### U AMIC ####[facility] Znxsomixrz[address] [place], [place] [address]Dr. Airam Tripathi Ketones Ql (U) Negative Normal NEGATIVE [facility] Comment on above: Performed By: #### U AMIC ####[facility] Tbxoirloyb[address] [place], [place] [address]Dr. Airam Tripathi LEUKOCYTES Negative Normal NEGATIVE [facility] Comment on above: Performed By: #### U AMIC ####[facility] Ydadtgtcxy40[address] [place] [address]Dr. Airam Tripathi MUCOUS NONE SEEN Normal NONE SEEN [facility] Comment on above: Performed By: #### U AMIC ####[facility] Fpcojdymzv[address] [place], [place] [address]Dr. Airam Tripathi Nitrite Ql (U) Negative Normal NEGATIVE [facility] Comment on above: Performed By: #### U AMIC ####[facility] Poxdnpzjff[address] [place], [place] [address]Dr. Airam Tripathi pH (U) 7.0 [pH] Normal 5-9 [facility] Comment on above: Performed By: #### U AMIC ####[facility] Yauhwmznog[address] [place], [place] [address]Dr. Airam Tripathi RBC 0-2 Normal 0-2 [facility] Comment on above: Performed By: #### U AMIC ####[facility] Uxofcjdxmn[address] [place], [place] [address]Dr. Airam Tripathi SPEC GRAVITY 1.015 Normal 1.005-<=1. 025 [facility] Comment on above: Performed By: #### U AMIC ####[facility] Vrgpbqtwle[address] [place], [place] [address]Dr. Airam Tripathi UA PROTEIN Negative Normal NEGATIVE/ TRACE [facility] Comment on above: Performed By: #### U AMIC ####[facility] Jwwufqlhar998[address] [place], [place] [address]Dr. Airam Tripathi Urobilinogen Qn (U) 0.2 {Ligia'U}/dL Normal 0.2 - 1. 0 [facility] Comment on above: Performed By: #### U AMIC ####[facility] Rbmwqcpqkl[address] [place], [place] [address]Dr. Airam Tripathi WBC NONE SEEN Normal NONE SEEN [facility] Comment on above: Performed By: #### U AMIC ####[facility] [address]zywdjg[address] [place] [address]Dr. Airam Tripathi XR CHEST 1 Von 10-24-2022 XR CHEST 1 V Normal [facility] CBC AUTO DIFFon 10-19-2022 BASO # 0.0 103/ul Normal 0.0-0.1 [facility] Comment on above: Performed By: #### C BC ####[facility] Zcqddrknrv04[address] [place] [address]Dr. Airam Tripathi Basophils/100 WBC (Bld) 0.5 % Normal 0.2-2.0 [facility] Comment on above: Performed By: #### C BC ####[facility] Oaqfinnmpa[address] [place] [address]Dr. Airam Tripathi EO # 0.3 103/ul Normal 0.0-0.7 [facility] Comment on above: Performed By: #### C BC ####[facility] Vdzzgmgqkl1268 [place] [address]Dr. Airam Tripathi Eosinophils/100 WBC (Bld) 3.3 % Normal 0.9-7.0 [facility] Comment on above: Performed By: #### C BC ####[facility] Nfewzroyyc09[address] [place] [address]Dr. Selenaneil Tripathi Erythrocyte distribution width (RBC) [Ratio] 15.0 % Normal 11.0-15.0 [facility] Comment on above: Performed By: #### C BC ####[facility] [address]dkocekmdk[address] [place], [place] [address]Dr. Airam Tripathi Hematocrit (Bld) [Volume fraction] 32.9 % Critically low 36.0-48.0 [facility] Comment on above: Performed By: #### C BC ####[facility] Vppbcrtksf8[address] [place] [address]Dr. Selenaneil Tripathi Hemoglobin (Bld) [Mass/Vol] 10.1 g/dL Critically low 12.0-16.0 [facility] Comment on above: Performed By: #### C BC ####[facility] Efelgemfip[address] [place] [id number]. Airam Tripathi IG # 0.04 10e3/ul Critically high 0.00-0.03 [facility] Comment on above: Performed By: #### C BC ####[facility] Dgfborzrpp9387 [place] [address]Dr. Airam Tripathi IG % 0.5 % Normal 0.0-0.5 [facility] Comment on above: Performed By: #### C BC ####[facility] Cewuvzgsje[address] [place] [address]Dr. Airam Deuce LYMPH # 1.5 103/ul Normal 1.2-3.8 [facility] Comment on above: Performed By: #### C BC ####[facility] Ixoxuqexqk33[address] [place] [address]Dr. Airam Tripathi Lymphocytes/100 WBC (Bld) 18.1 % Critically low 20.5-60.0 [facility] Comment on above: Performed By: #### C BC ####[facility] Vqqjdcufse232[address] [place] [address]Dr. Airam Tripathi MANUAL DIFF REQ NO Normal [facility] Comment on above: Performed By: #### C BC ####[facility] Xlameuhkdc45[address] [place] [address]Dr. Airam Deuce MCH (RBC) [Entitic mass] 28.3 pg Normal 26.7-34.0 [facility] Comment on above: Performed By: #### C BC ####[facility] S[address]mebulz[address] [place], [place] [address]Dr. Airam Tripathi MCHC (RBC) [Mass/Vol] 30.7 g/dL Normal 29.9-35.2 [facility] Comment on above: Performed By: #### C BC ####[facility] Kjaczppcht0624 [place] [id number]. Airam Deuce MCV (RBC) [Entitic vol] 92.2 fL Normal 81.0-99.0 [facility] Comment on above: Performed By: #### C BC ####[facility] Oxpvrjxpqd7237 [place] [id number]. Airam Tripathi MONO # 0.7 103/ul Normal 0.3-0.8 [facility] Comment on above: Performed By: #### C BC ####[facility] Nzpivsibsn4895 [place] [id number]. Airam Tripathi Monocytes/100 WBC (Bld) 7.7 % Normal 1.7-12.0 [facility] Comment on above: Performed By: #### C BC ####[facility] Unqawjpfsk2054 [place] [id number]. Airam Tripathi NEUT # 5.9 103/ul Normal 1.4-6.5 [facility] Comment on above: Performed By: #### C BC ####[facility] Zbzskbcpwb0252 [place] [address]Dr. Airam Tripathi Neutrophils/100 WBC (Bld) 69.9 % Normal 43.0-75.0 [facility] Comment on above: Performed By: #### C BC ####[facility] Yjknbfadwz7956 [place] [phone]. Airam Tripathi Platelet mean volume (Bld) [Entitic vol] 9.3 fL Critically low 9.5-13.5 [facility] Comment on above: Performed By: #### C BC ####[facility] Aivamtpoxk3[address] [place] [id number]. Airam Tripathi PLT 293 103/ul Normal 150-450 [facility] Comment on above: Performed By: #### C BC ####[facility] Wczhoyzeki3462 [place] [phone]. Airam Tripathi RBC 3.57 106/ul Critically low 4.20-5.40 [facility] Comment on above: Performed By: #### C BC ####[facility] Nrqubyrzxp5965 [place] [phone]. Airam Tripathi WBC 8.4 103/ul Normal 4.0-11.0 [facility] Comment on above: Performed By: #### C BC ####[facility] Mdyoggbkpc37[address] [place] [address]Dr. Airam Tripathi PROF 14(COMP METB)on 023 Albumin [Mass/Vol] 3.1 g/dL Critically low 3.4-5.0 [facility] Comment on above: Performed By: #### C MP ####[facility] Bvrgzfwvrq420[address] [place], [place] [address]Dr. Airam Tripathi Albumin/Globulin [Mass ratio] 0.9 {ratio} Normal [facility] Comment on above: Performed By: #### C MP ####[facility] Epbkmfmzhp556[address] [place], [place] [address]Dr. Airam Tripathi ALP [Catalytic activity/Vol] 117 U/L Critically high 46-116 [facility] Comment on above: Performed By: #### C MP ####[facility] Gqeanwyzrc270[address] [place], [place] [address]Dr. Airam Tripathi ALT [Catalytic activity/Vol] 24 U/L Normal 14-59 [facility] Comment on above: Performed By: #### C MP ####[facility] Uttytegukx27[address] [place], [place] [address]Dr. Airam Tripathi Anion gap [Moles/Vol] 11.1 mmol/L Normal [facility] Comment on above: Performed By: #### C MP ####[facility] Sndqhmnalk235[address] [place], [place] [address]Dr. Airam Tripathi AST [Catalytic activity/Vol] 22 U/L Normal 15-37 [facility] Comment on above: Performed By: #### C MP ####[facility] Wgrpcegand32[address] [place], [place] [address]Dr. Airam Tripathi Bilirubin [Mass/Vol] 0.2 mg/dL Normal 0.2-1.0 [facility] Comment on above: Performed By: #### C MP ####[facility] Kkpsukltac24[address] [place], [place] [address]Dr. Airam Tripathi Calcium [Mass/Vol] 8.4 mg/dL Critically low 8.5-10.1 [facility] Comment on above: Performed By: #### C MP ####[facility] Hpqgugjhcl2877 [place] [phone]. Airam Tripathi Chloride [Moles/Vol] 103 mmol/L Normal 98-107 [facility] Comment on above: Performed By: #### C MP ####[facility] Eekorciwmi[address] [place], [place] [address]Dr. Airam Tripathi CO2 [Moles/Vol] 25.0 mmol/L Normal 21.0-32.0 [facility] Comment on above: Performed By: #### C MP ####[facility] Mvfuzlybco[address] [place], [place] [address]Dr. Airam Tripathi Creatinine [Mass/Vol] 1.27 mg/dL Critically high 0.55-1.02 [facility] Comment on above: Performed By: #### C MP ####[facility] Mphltxbbsk99[address] [place], [place] [address]Dr. Airam Tripathi EGFR-AF BARBADIAN 52 mL/min/1.73m2 Critically low >=60 [facility] Comment on above: Performed By: #### C MP ####[facility] Iqaxvodbhh86[address] [place], [place] [address]Dr. Airam Tripathi EGFR-NON AF BARBADIAN 43 mL/min/1.73m2 Critically low >=60 [facility] Comment on above: Performed By: #### C MP ####[facility] Rruacxcdno[address] [place], [place] [address]Dr. Airam Tripathi Globulin (S) [Mass/Vol] 3.3 g/dL Normal [facility] Comment on above: Performed By: #### C MP ####[facility] Cokgybkera04[address] [place], [place] [address]Dr. Airam Tripathi Glucose [Mass/Vol] 90 mg/dL Normal 74-106 [facility] Comment on above: Performed By: #### C MP ####[facility] Xhdhbbvmpt40[address] [place], [place] [address]Dr. Airam Tripathi Potassium [Moles/Vol] 5.1 mmol/L Normal 3.5-5.1 [facility] Comment on above: Performed By: #### C MP ####[facility] Pwytuofukt6223 [place] [id number]. Airam Tripathi Protein [Mass/Vol] 6.4 g/dL Normal 6.4-8.2 [facility] Comment on above: Performed By: #### C MP ####[facility] Ozrkqiihef95[address] [place] [address]Dr. Airam Tripathi Sodium [Moles/Vol] 134 mmol/L Critically low 136-145 Th [facility] Comment on above: Performed By: #### C MP ####[facility] Qowcswfvov8889 [place] [address]Dr. Airam Deuce Urea nitrogen [Mass/Vol] 33.0 mg/dL Critically high 7.0-18.0 [facility] Comment on above: Performed By: #### C MP ####[facility] Kwptltwglu66[address] [place], [place] [address]Dr. Airam Tripathi Urea nitrogen/Creatinine [Mass ratio] 26.0 mg/mg Normal [facility] Comment on above: Performed By: #### C MP ####[facility] Kifwwvzkoa57[address] [place] [address]Dr. Airam Deuce OSMOLALITYon 10-15-2022 Osmolality [Osmolality] 272 mosm/kg Critically low 275-295 [facility] Comment on above: Performed By: #### O SMO ####[facility] T[address]xbgfmhlz[address] [place], [place] [address]Dr. Selenaneil Deuce 36on 10-12-2022 36 Can you get the henry ining labs please Normal [facility] 36 TBH lab called to re port critical BNP of 1,337. FYI Normal [facility] BNPon 10-12-2022 Natriuretic peptide B (Bld) [Mass/Vol] 1337.0 pg/mL Critically high <=900.0 [facility] Comment on above: Performed By: #### B SUPERVISOR DIALS ####[facility] Jwbzdijmpl[address] [place], [place] [address]Dr. Airam Deuce CBC AUTO DIFFon 10-12-2022 BASO # 0.0 103/ul Normal 0.0-0.1 [facility] Comment on above: Performed By: #### C BC ####[facility] Osrgsrhyjw7824 [place] [id number]. Airam Tripathi Basophils/100 WBC (Bld) 0.6 % Normal 0.2-2.0 [facility] Comment on above: Performed By: #### C BC ####[facility] Sqcoykybqi[address] [place], [place] [address]Dr. Airam Tripathi EO # 0.2 103/ul Normal 0.0-0.7 [facility] Comment on above: Performed By: #### C BC ####[facility] Ebmvfpnpdd[address] [place], [place] [address]Dr. Airam Deuce Eosinophils/100 WBC (Bld) 2.3 % Normal 0.9-7.0 [facility] Comment on above: Performed By: #### C BC ####[facility] Atqslzpnco[address] [place], [place] [address]Dr. Airam Tripathi Erythrocyte distribution width (RBC) [Ratio] 15.1 % Critically high 11.0-15.0 [facility] Comment on above: Performed By: #### C BC ####[facility] Giobmdbdfs[address] [place], [place] [address]Dr. Airam Tripathi Hematocrit (Bld) [Volume fraction] 35.9 % Critically low 36.0-48.0 [facility] Comment on above: Performed By: #### C BC ####[facility] [address]tskzqvncb[address] [place], [place] [address]Dr. Airam Tripathi Hemoglobin (Bld) [Mass/Vol] 11.4 g/dL Critically low 12.0-16.0 [facility] Comment on above: Performed By: #### C BC ####[facility] Thoclyxfyq[address] [place], [place] [address]Dr. Airam Deuce IG # 0.03 10e3/ul Normal 0.00-0.03 [facility] Comment on above: Performed By: #### C BC ####[facility] Gubbfmxdpq[address] [place], [place] [address]Dr. Airam Tripathi IG % 0.5 % Normal 0.0-0.5 [facility] Comment on above: Performed By: #### C BC ####[facility] Fcuxbunwvn[address] [place] [address]DrKianna Tripathi LYMPH # 1.1 103/ul Critically low 1.2-3.8 [facility] Comment on above: Performed By: #### C BC ####[facility] [facility] Tgokjvqqnl9955 [place] [phone]. Airam Tripathi Lymphocytes/100 WBC (Bld) 17.2 % Critically low 20.5-60.0 [facility] Comment on above: Performed By: #### C BC ####[facility] Hkjeisnvgo[address] [place], [place] [address]DrKianna Tripathi MANUAL DIFF REQ NO Normal [facility] Comment on above: Performed By: #### C BC ####[facility] Wswpuygkbk89[address] [place], [place] [address]DrKianna Tripathi MCH (RBC) [Entitic mass] 28.8 pg Normal 26.7-34.0 [facility] Comment on above: Performed By: #### C BC ####[facility] Aofzriruwd69[address] [place] [address]Dr. Airam Tripathi MCHC (RBC) [Mass/Vol] 31.8 g/dL Normal 29.9-35.2 [facility] Comment on above: Performed By: #### C BC ####[facility] Avarombbhs7[address] [place], [place] [address]DrKianna Tripathi MCV (RBC) [Entitic vol] 90.7 fL Normal 81.0-99.0 [facility] Comment on above: Performed By: #### C BC ####[facility] Cvbwfclwrn[address] [place], [place] [id number] Tripathi MONO # 0.5 103/ul Normal 0.3-0.8 [facility] Comment on above: Performed By: #### C BC ####[facility] Ovjuaaymtp7040 [place] [id number] Tripathi Monocytes/100 WBC (Bld) 7.7 % Normal 1.7-12.0 [facility] Comment on above: Performed By: #### C BC ####[facility] Tsldocokdf6850 [place] [id number]. Airam Tripathi NEUT # 4.7 103/ul Normal 1.4-6.5 [facility] Comment on above: Performed By: #### C BC ####[facility] Guqemdzzyd1405 [place] [phone] Tripathi Neutrophils/100 WBC (Bld) 71.7 % Normal 43.0-75.0 [facility] Comment on above: Performed By: #### C BC ####[facility] Asrugmsbsw3171 [place] [address]DrKianna Tripathi Platelet mean volume (Bld) [Entitic vol] 8.2 fL Critically low 9.5-13.5 [facility] Comment on above: Performed By: #### C BC ####[facility] Mvcmrclvcf8292 [place] [address]Dr. Airam Tripathi PLT 292 103/ul Normal 150-450 [facility] Comment on above: Performed By: #### C BC ####[facility] Dtinvxubze6678 [place] [address]Dr. Airam Tripathi RBC 3.96 106/ul Critically low 4.20-5.40 [facility] Comment on above: Performed By: #### C BC ####[facility] Dzzqgtwhel7174 [place] [phone] Tripathi WBC 6.6 103/ul Normal 4.0-11.0 [facility] Comment on above: Performed By: #### C BC ####[facility] Euyxcwohnw8576 [place] [phone] Tripathi PROF 14(COMP METB)on 023 Albumin [Mass/Vol] 3.3 g/dL Critically low 3.4-5.0 [facility] Comment on above: Performed By: #### C MP ####[facility] Vxrzyngsps0940 [place] [address]DrKianna Tripathi Albumin/Globulin [Mass ratio] 0.9 {ratio} Normal [facility] Comment on above: Performed By: #### C MP ####[facility] Jiedfcddep4799 [place] [address]Dr. Airam Deuce ALP [Catalytic activity/Vol] 130 U/L Critically high 46-116 [facility] Comment on above: Performed By: #### C MP ####[facility] Vyqsqjjvop8727 [place] [address]Dr. Airam Deuce ALT [Catalytic activity/Vol] 23 U/L Normal 14-59 [facility] Comment on above: Performed By: #### C MP ####[facility] Bpucfqvgct5424 [place] [address]Dr. Airam Tripathi Anion gap [Moles/Vol] 11.7 mmol/L Normal Th e [facility] Comment on above: Performed By: #### C MP ####[facility] Cdpjmlblal400[address] [place], [place] [address]Dr. Airam Tripathi AST [Catalytic activity/Vol] 23 U/L Normal 15-37 [facility] Comment on above: Performed By: #### C MP ####[facility] Tywyhsrjcv137[address] [place], [place] [address]Dr. Airam Tripathi Bilirubin [Mass/Vol] 0.3 mg/dL Normal 0.2-1.0 [facility] Comment on above: Performed By: #### C MP ####[facility] Hgusppqddf9134 [place] [address]Dr. Airam Tripathi Calcium [Mass/Vol] 8.7 mg/dL Normal 8.5-10.1 [facility] Comment on above: Performed By: #### C MP ####[facility] Mryrbxqxyx1478 [place] [address]Dr. Airam Tripathi Chloride [Moles/Vol] 99 mmol/L Normal 98-107 [facility] Comment on above: Performed By: #### C MP ####[facility] Ytkyrnwivv6114 [place] [address]Dr. Airam Tripathi CO2 [Moles/Vol] 28.5 mmol/L Normal 21.0-32.0 [facility] Comment on above: Performed By: #### C MP ####[facility] Lahqmvmvjo5319 [place] [address]Dr. Airam Tripathi Creatinine [Mass/Vol] 1.06 mg/dL Critically high 0.55-1.02 [facility] Comment on above: Performed By: #### C MP ####[facility] Kgahphksxq80[address] [place] [address]Dr. Airam Deuce EGFR-AF BARBADIAN >60 Normal >=60 [facility] Comment on above: Performed By: #### C MP ####[facility] Vygtlfemvf2538 [place] [address]Dr. Airam Deuce EGFR-NON AF BARBADIAN 53 mL/min/1.73m2 Critically low >=60 [facility] Comment on above: Performed By: #### C MP ####[facility] Ahmixrlkhd01[address] [place], [place] [address]Dr. Airam Deuce Globulin (S) [Mass/Vol] 3.5 g/dL Normal [facility] Comment on above: Performed By: #### C MP ####[facility] Nbzrmiuajn8751 [place] [address]Dr. Airam Deuce Glucose [Mass/Vol] 79 mg/dL Normal 74-106 [facility] Comment on above: Performed By: #### C MP ####[facility] Rclxbypurh7600 [place] [address]Dr. Airam Deuce Potassium [Moles/Vol] 4.2 mmol/L Normal 3.5-5.1 [facility] Comment on above: Performed By: #### C MP ####[facility] Lkagkxornv5849 [place] [address]Dr. Airam Tripathi Protein [Mass/Vol] 6.8 g/dL Normal 6.4-8.2 [facility] Comment on above: Performed By: #### C MP ####[facility] Zcjivyqcmj7966 [place] [address]Dr. Airam Deuce Sodium [Moles/Vol] 135 mmol/L Critically low 136-145 Th [facility] Comment on above: Performed By: #### C MP ####[facility] Bdbkapexmr6035 [place] [phone]. Airam Tripathi Urea nitrogen [Mass/Vol] 16.0 mg/dL Normal 7.0-18.0 [facility] Comment on above: Performed By: #### C MP ####[facility] Gdiyiwoxmf1939 [place] [phone]. Airam Tripathi Urea nitrogen/Creatinine [Mass ratio] 15.1 mg/mg Normal [facility] Comment on above: Performed By: #### C MP ####[facility] Fwimzafdti3114 [place] [phone]. Selenaneil Deuce XR CHEST 1 Von 10-12-2022 XR CHEST 1 V Normal [facility] Office Visiton 10-10-2022 Follow-up visit [id number] Loern Moser 1960 F Date Provider Department Center 10/10/2022 ZANDRA NASH [facility] No family history on file Level of Service:00101 ME OFFICE/OUTPATIENT ESTABLISHED MOD MDM 30-39 MIN Reason for Visit and Comments: Congestive Heart Failure [127] Re-establish care [Other] Normal [facility] PRBC LEUKOREDUCEDon 10-10-19 23 PRBC LEUKOREDUCED Normal [facility] Comment on above: Performed By: #### P RBC ####[facility] Oajkdlokbc2[address] [place] [address]Dr. Selenaneil Tripathi CULTURE URINEon 10-08-2022 CULTURE URINE Normal [facility] Comment on above: Performed By: #### U RCX ####[facility] Zcogjtvzya5388 [place] [phone]. Airam Tripathi OSMOLALITYon 10-08-2022 Osmolality [Osmolality] 282 mosm/kg Normal 275-295 [facility] Comment on above: Performed By: #### O SMO ####[facility] Lxqkgarrsb3483 [place] [phone]. Selenaneil Deuce CBC AUTO DIFFon 10-07-2022 BASO # 0.0 103/ul Normal 0.0-0.1 [facility] Comment on above: Performed By: #### C BC ####[facility] Ksbqyobcdt1939 [place] [phone]. Airam Tripathi Basophils/100 WBC (Bld) 0.3 % Normal 0.2-2.0 [facility] Comment on above: Performed By: #### C BC ####[facility] Mhcxvartgw[address] [place], [place] [id number]. Airam Tripathi EO # 0.2 103/ul Normal 0.0-0.7 [facility] Comment on above: Performed By: #### C BC ####[facility] Fvnwvamsxy337[address] [place], [place] [address]Dr. Airam Tripathi Eosinophils/100 WBC (Bld) 3.4 % Normal 0.9-7.0 [facility] Comment on above: Performed By: #### C BC ####[facility] Gkjjhqofeh506[address] [place], [place] [address]Dr. Airam Tripathi Erythrocyte distribution width (RBC) [Ratio] 15.2 % Critically high 11.0-15.0 [facility] Comment on above: Performed By: #### C BC ####[facility] Nojbuyxdgr485[address] [place], [place] [address]Dr. Airam Tripathi Hematocrit (Bld) [Volume fraction] 31.3 % Critically low 36.0-48.0 [facility] Comment on above: Performed By: #### C BC ####[facility] Otybcmsqbi276[address] [place], [place] [address]Dr. Airam Tripathi Hemoglobin (Bld) [Mass/Vol] 9.9 g/dL Critically low 12.0-16.0 [facility] Comment on above: Performed By: #### C BC ####[facility] Njjqlcocsv914[address] [place], [place] [address]Dr. Airam Tripathi IG # 0.03 10e3/ul Normal 0.00-0.03 [facility] Comment on above: Performed By: #### C BC ####[facility] Ozboebbdlj207[address] [place], [place] [address]Dr. Airam Tripathi IG % 0.4 % Normal 0.0-0.5 [facility] Comment on above: Performed By: #### C BC ####[facility] Wixdahusaj1294 [place] [phone]. Airam Tripathi LYMPH # 1.3 103/ul Normal 1.2-3.8 [facility] Comment on above: Performed By: #### C BC ####[facility] Yfpcoyodet9359 [place] [phone]. Airam Tripathi Lymphocytes/100 WBC (Bld) 19.0 % Critically low 20.5-60.0 [facility] Comment on above: Performed By: #### C BC ####[facility] Mfamhabkiu5231 [place] [address]Dr. Airam Tripathi MANUAL DIFF REQ NO Normal [facility] Comment on above: Performed By: #### C BC ####[facility] Crhvpoqgvf0237 [place] [address]Dr. Airam Tripathi MCH (RBC) [Entitic mass] 28.1 pg Normal 26.7-34.0 [facility] Comment on above: Performed By: #### C BC ####[facility] Ksibuyayca1832 [place] [phone]. Airam Tripathi MCHC (RBC) [Mass/Vol] 31.6 g/dL Normal 29.9-35.2 [facility] Comment on above: Performed By: #### C BC ####[facility] Zfoukmctgn1549 [place] [phone]. Airam Tripathi MCV (RBC) [Entitic vol] 88.9 fL Normal 81.0-99.0 [facility] Comment on above: Performed By: #### C BC ####[facility] Ialtfsbshb9731 [place] [phone]. Airam Tripathi MONO # 0.6 103/ul Normal 0.3-0.8 [facility] Comment on above: Performed By: #### C BC ####[facility] Gnjlnkafmp4085 [place] [phone]. Airam Tripathi Monocytes/100 WBC (Bld) 9.0 % Normal 1.7-12.0 [facility] Comment on above: Performed By: #### C BC ####[facility] Wpwuhdhrbl4296 [place] [phone]. Airam Tripathi NEUT # 4.5 103/ul Normal 1.4-6.5 [facility] Comment on above: Performed By: #### C BC ####[facility] Uuazdglfgk2663 [place] [phone]. Airam Tripathi Neutrophils/100 WBC (Bld) 67.9 % Normal 43.0-75.0 [facility] Comment on above: Performed By: #### C BC ####[facility] Mvdtnpyeet9489 [place] [phone]. Selenaneil Deuce Platelet mean volume (Bld) [Entitic vol] 9.1 fL Critically low 9.5-13.5 [facility] Comment on above: Performed By: #### C BC ####[facility] Pkfdshfpbb5223 [place] [address]Dr. Airam Tripathi PLT 256 103/ul Normal 150-450 [facility] Comment on above: Performed By: #### C BC ####[facility] Hqodprjcak8707 [place] [phone]. Selenaneil Deuce RBC 3.52 106/ul Critically low 4.20-5.40 [facility] Comment on above: Performed By: #### C BC ####[facility] Trzvxpwhso5178 [place] [phone]. Airam Tripathi WBC 6.7 103/ul Normal 4.0-11.0 [facility] Comment on above: Performed By: #### C BC ####[facility] Xyswvftbcs3849 [place] [phone] Tripathi PROF 14(COMP METB)on 023 Albumin [Mass/Vol] 2.8 g/dL Critically low 3.4-5.0 Th [facility] Comment on above: Performed By: #### C MP ####[facility] Njwedvldsc2336 [place] [phone] Tripathi Albumin/Globulin [Mass ratio] 0.9 {ratio} Normal [facility] Comment on above: Performed By: #### C MP ####[facility] Ewccwvguhl6098 [place] [address]Dr. Airam Tripathi ALP [Catalytic activity/Vol] 118 U/L Critically high 46-116 [facility] Comment on above: Performed By: #### C MP ####[facility] Sbnjocxxyn7122 [place] [address]Dr. Airam Tripathi ALT [Catalytic activity/Vol] 23 U/L Normal 14-59 [facility] Comment on above: Performed By: #### C MP ####[facility] Xsskoapovo9634 [place] [address]Dr. Airam Tripathi Anion gap [Moles/Vol] 12.5 mmol/L Normal [facility] Comment on above: Performed By: #### C MP ####[facility] Octdmupjic82[address] [place], [place] [address]Dr. Airam Tripathi AST [Catalytic activity/Vol] 21 U/L Normal 15-37 [facility] Comment on above: Performed By: #### C MP ####[facility] Ickgwrvepl360[address] [place], [place] [address]Dr. Airam Tripathi Bilirubin [Mass/Vol] 0.4 mg/dL Normal 0.2-1.0 [facility] Comment on above: Performed By: #### C MP ####[facility] Wclyhuzwyb4918[address] [place], [place] [address]Dr. Airam Deuce Calcium [Mass/Vol] 8.2 mg/dL Critically low 8.5-10.1 [facility] Comment on above: Performed By: #### C MP ####[facility] Kmbydhrbqg2011 [place] [address]Dr. Airam Deuce Chloride [Moles/Vol] 99 mmol/L Normal 98-107 [facility] Comment on above: Performed By: #### C MP ####[facility] Lsmidaqljb0015 [place] [address]Dr. Airam Tripathi CO2 [Moles/Vol] 24.9 mmol/L Normal 21.0-32.0 [facility] Comment on above: Performed By: #### C MP ####[facility] Ipfapqvkej6683 [place] [phone]. Airam Tripathi Creatinine [Mass/Vol] 1.61 mg/dL Critically high 0.55-1.02 [facility] Comment on above: Performed By: #### C MP ####[facility] Tgmcoabebz8840 [place] [phone]. Airam Deuce EGFR-AF BARBADIAN 40 mL/min/1.73m2 Critically low >=60 [facility] Comment on above: Performed By: #### C MP ####[facility] Rxfbylxepf3490 [place] [address]Dr. Airam Deuce EGFR-NON AF BARBADIAN 33 mL/min/1.73m2 Critically low >=60 [facility] Comment on above: Performed By: #### C MP ####[facility] Zrelilhvpa2372 [place] [address]Dr. Airam Deuce Globulin (S) [Mass/Vol] 3.2 g/dL Normal [facility] Comment on above: Performed By: #### C MP ####[facility] Fcadojdqpj8475 [place] [address]Dr. Airam Deuce Glucose [Mass/Vol] 67 mg/dL Critically low 74-106 Th [facility] Comment on above: Performed By: #### C MP ####[facility] Xlxcobnpbg8355 [place] [address]Dr. Airam Deuce Potassium [Moles/Vol] 5.4 mmol/L Critically high 3.5-5.1 [facility] Comment on above: Performed By: #### C MP ####[facility] Rrgadhljfx7724 [place] [address]Dr. Airam Tripathi Protein [Mass/Vol] 6.0 g/dL Critically low 6.4-8.2 Th [facility] Comment on above: Performed By: #### C MP ####[facility] Eprycxzkla6734 [place] [address]Dr. Airam Tripathi Sodium [Moles/Vol] 131 mmol/L Critically low 136-145 Th [facility] Comment on above: Performed By: #### C MP ####[facility] Enddzpkvsp1665 [place] [address]Dr. Airam Tripathi Urea nitrogen [Mass/Vol] 43.0 mg/dL Critically high 7.0-18.0 [facility] Comment on above: Performed By: #### C MP ####[facility] Qybszpfsgk700[address] [place], [place] [address]Dr. Airam Deuce Urea nitrogen/Creatinine [Mass ratio] 26.7 mg/mg Normal [facility] Comment on above: Performed By: #### C MP ####[facility] Rkmvozwsvs650[address] [place], [place] [address]Dr. Airam Deuce CBC AUTO DIFFon 10-06-2022 BASO # 0.0 103/ul Normal 0.0-0.1 [facility] Comment on above: Performed By: #### C BC ####[facility] Qbggpgrihf2380[address] [place], [place] [address]Dr. Selenaneil Tripathi Basophils/100 WBC (Bld) 0.3 % Normal 0.2-2.0 [facility] Comment on above: Performed By: #### C BC ####[facility] Ffcdhagtjn880[address] [place], [place] [address]Dr. Airam Deuce EO # 0.2 103/ul Normal 0.0-0.7 [facility] Comment on above: Performed By: #### C BC ####[facility] Rqnjokkjvu6033[address] [place], [place] [address]Dr. Selenaneil Tripathi Eosinophils/100 WBC (Bld) 3.1 % Normal 0.9-7.0 [facility] Comment on above: Performed By: #### C BC ####[facility] Sxwijbnnll344[address] [place], [place] [address]Dr. Airam Tripathi Erythrocyte distribution width (RBC) [Ratio] 15.0 % Normal 11.0-15.0 [facility] Comment on above: Performed By: #### C BC ####[facility] Pvwwedzvsh6922[address] [place], [place] [address]Dr. Airam Tripathi Hematocrit (Bld) [Volume fraction] 30.9 % Critically low 36.0-48.0 [facility] Comment on above: Performed By: #### C BC ####[facility] Eukmmjfyra1697 [place] [address]Dr. Airam Tripathi Hemoglobin (Bld) [Mass/Vol] 10.1 g/dL Critically low 12.0-16.0 [facility] Comment on above: Result Comment: BIJU ENT RECIEVED 2 UNITS PRBC'S Performed By: #### C BC ####[facility] Vrzlfswkjk2800[address] [place], [place] [address]Dr. Airam Tripathi IG # 0.03 10e3/ul Normal 0.00-0.03 [facility] Comment on above: Performed By: #### C BC ####[facility] Rlubiofgwz996[address] [place], [place] [address]Dr. Airam Tripathi IG % 0.4 % Normal 0.0-0.5 [facility] Comment on above: Performed By: #### C BC ####[facility] Bxibwoxcdh8316[address] [place], [place] [address]DrKianna Tripathi LYMPH # 1.1 103/ul Critically low 1.2-3.8 [facility] Comment on above: Performed By: #### C BC ####[facility] Qawptwssiz398[address] [place], [place] [address]DrKianna Tripathi Lymphocytes/100 WBC (Bld) 14.4 % Critically low 20.5-60.0 [facility] Comment on above: Performed By: #### C BC ####[facility] Mhcmjhaaoz617[address] [place], [place] [address]DrKianna Tripathi MANUAL DIFF REQ NO Normal [facility] Comment on above: Performed By: #### C BC ####[facility] Ncsbkwebxg972398 [address] [place], [place] [address]DrKianna Tripathi MCH (RBC) [Entitic mass] 28.9 pg Normal 26.7-34.0 [facility] Comment on above: Performed By: #### C BC ####[facility] Cqwumkguaz3020[address] [place], [place] [address]Dr. Airam Tripathi MCHC (RBC) [Mass/Vol] 32.7 g/dL Normal 29.9-35.2 [facility] Comment on above: Performed By: #### C BC ####[facility] Oxueiwlvcf2491 [place] [address]DrKianna Tripathi MCV (RBC) [Entitic vol] 88.3 fL Normal 81.0-99.0 [facility] Comment on above: Performed By: #### C BC ####[facility] Duireenidu9699[address] [place], [place] [address]DrKianna Tripathi MONO # 0.6 103/ul Normal 0.3-0.8 [facility] Comment on above: Performed By: #### C BC ####[facility] Ceqyppardl2545[address] [place], [place] [address]DrKianna Tripathi Monocytes/100 WBC (Bld) 7.8 % Normal 1.7-12.0 [facility] Comment on above: Performed By: #### C BC ####[facility] Zijlmyzmju577[address] [place], [place] [address]DrKianna Tripathi NEUT # 5.5 103/ul Normal 1.4-6.5 [facility] Comment on above: Performed By: #### C BC ####[facility] Jvxhrzobhe770[address] [place], [place] [address]DrKianna Tripathi Neutrophils/100 WBC (Bld) 74.0 % Normal 43.0-75.0 [facility] Comment on above: Performed By: #### C BC ####[facility] Xzqhcxgshe65119[address] [place], [place] [address]DrKianna Tripathi Platelet mean volume (Bld) [Entitic vol] 9.2 fL Critically low 9.5-13.5 [facility] Comment on above: Performed By: #### C BC ####[facility] Gmngcplipq20[address] [place], [place] [address]DrKianna Tripathi PLT 275 103/ul Normal 150-450 [facility] Comment on above: Performed By: #### C BC ####[facility] Getilbjebx3330[address] [place], [place] [address]DrKianna Tripathi RBC 3.50 106/ul Critically low 4.20-5.40 [facility] Comment on above: Performed By: #### C BC ####[facility] Gvywihadmn4383 [place] [address]Dr. Airam Tripathi WBC 7.4 103/ul Normal 4.0-11.0 [facility] Comment on above: Performed By: #### C BC ####[facility] Avydwmxqfu713[address] [place], [place] [address]Dr. Airam Tripathi BASO # 0.0 103/ul Normal 0.0-0.1 [facility] Comment on above: Performed By: #### C BC ####[facility] Xwyaaiespf1285[address] [place], [place] [address]Dr. Airam Deuce Basophils/100 WBC (Bld) 0.4 % Normal 0.2-2.0 [facility] Comment on above: Performed By: #### C BC ####[facility] Bcanskhtfp608[address] [place], [place] [address]Dr. Airam Tripathi EO # 0.2 103/ul Normal 0.0-0.7 [facility] Comment on above: Performed By: #### C BC ####[facility] Nvicsgkzez725[address] [place], [place] [address]Dr. Airam Tripathi Eosinophils/100 WBC (Bld) 4.5 % Normal 0.9-7.0 [facility] Comment on above: Performed By: #### C BC ####[facility] Rjvkvigwrc8[address] [place], [place] [address]Dr. Airam Tripathi Erythrocyte distribution width (RBC) [Ratio] 15.1 % Critically high 11.0-15.0 [facility] Comment on above: Performed By: #### C BC ####[facility] Ajpvtxbgec[address] [place], [place] [address]Dr. Airam Tripathi Hematocrit (Bld) [Volume fraction] 23.0 % Critically low 36.0-48.0 [facility] Comment on above: Performed By: #### C BC ####[facility] Zpgxbbezqn022[address] [place], [place] [address]Dr. Airam Deuce Hemoglobin (Bld) [Mass/Vol] 7.2 g/dL Critically low 12.0-16.0 [facility] Comment on above: Performed By: #### C BC ####[facility] Zwvzwotqnj7378 [place] [address]Dr. Selenaneil Tripathi IG # 0.02 10e3/ul Normal 0.00-0.03 [facility] Comment on above: Performed By: #### C BC ####[facility] Rzwvcsoyae0959 [place] [address]Dr. Airam Tripathi IG % 0.4 % Normal 0.0-0.5 [facility] Comment on above: Performed By: #### C BC ####[facility] Cvfstgljkb408[address] [place], [place] [address]DrKianna Tripathi LYMPH # 1.0 103/ul Critically low 1.2-3.8 [facility] Comment on above: Performed By: #### C BC ####[facility] Vryzkbtpho[address] [place], [place] [address]Dr. Airam Tripathi Lymphocytes/100 WBC (Bld) 22.5 % Normal 20.5-60.0 [facility] Comment on above: Performed By: #### C BC ####[facility] Lncuqzhztg[address] [place], [place] [address]DrKianna Selenaneil Tripathi MANUAL DIFF REQ NO Normal [facility] Comment on above: Performed By: #### C BC ####[facility] Zxamsvkbah505[address] [place], [place] [address]DrKianna Tripathi MCH (RBC) [Entitic mass] 28.3 pg Normal 26.7-34.0 [facility] Comment on above: Performed By: #### C BC ####[facility] Baumdnmumu55[address] [place], [place] [address]DrKianna Tripathi MCHC (RBC) [Mass/Vol] 31.3 g/dL Normal 29.9-35.2 [facility] Comment on above: Performed By: #### C BC ####[facility] Uxtrlhpozw9827[address] [place], [place] [address]DrKianna Tripathi MCV (RBC) [Entitic vol] 90.6 fL Normal 81.0-99.0 [facility] Comment on above: Performed By: #### C BC ####[facility] [address] [place] [address] Airam Tripathi MONO # 0.5 103/ul Normal 0.3-0.8 [facility] Comment on above: Performed By: #### C BC ####[facility] Ptennwmeeh[address] [place] [address]DrKianna Tripathi Monocytes/100 WBC (Bld) 9.7 % Normal 1.7-12.0 [facility] Comment on above: Performed By: #### C BC ####[facility] Xslqrjqoxr278[address] [place], [place] [address]DrKianna Airam Tripathi NEUT # 2.9 103/ul Normal 1.4-6.5 [facility] Comment on above: Performed By: #### C BC ####[facility] Gvnomhpifm704[address] [place], [place] [address]DrKianna Tripathi Neutrophils/100 WBC (Bld) 62.5 % Normal 43.0-75.0 [facility] Comment on above: Performed By: #### C BC ####[facility] Eczpbqfrmq0013[address] [place], [place] [address]DrKianna Selenaneil Tripathi Platelet mean volume (Bld) [Entitic vol] 8.9 fL Critically low 9.5-13.5 [facility] Comment on above: Performed By: #### C BC ####[facility] Yzbbcahzzw3815[address] [place], [place] [address]Dr. Airam Tripathi PLT 210 103/ul Normal 150-450 [facility] Comment on above: Performed By: #### C BC ####[facility] Aymeeezegb096[address] [place], [place] [address]DrKianna Tripathi RBC 2.54 106/ul Critically low 4.20-5.40 [facility] Comment on above: Performed By: #### C BC ####[facility] Muotshrmfr715[address] [place], [place] [address]DrKianna Tripathi WBC 4.6 103/ul Normal 4.0-11.0 [facility] Comment on above: Performed By: #### C BC ####[facility] [address] [place] [address]Dr. Airam Tripathi OSMOLALITYon 10-06-2022 Osmolality [Osmolality] 279 mosm/kg Normal 275-295 [facility] Comment on above: Performed By: #### O SMO ####[facility] Bhkwvbgvgg537[address] [place], [place] [address]Dr. Airam Tripathi POINT OF CARE GLUCOSEon 09-24 Glucose [Mass/Vol] 72 mg/dL Critically low 74-106 Th [facility] Comment on above: Performed By: #### P OCGLUC ####[facility] Vldnglawym5960[address] [place], [place] [address]Dr. Airam Tripathi Glucose [Mass/Vol] 102 mg/dL Normal 74-106 [facility] Comment on above: Performed By: #### P OCGLUC ####[facility] Mgjqiotqrx648498 [address] [place], [place] [address]Dr. Airam Tripathi Glucose [Mass/Vol] 165 mg/dL Critically high 74-106 [facility] Comment on above: Performed By: #### P OCGLUC ####[facility] Qezgbsrkwq3730[address] [place], [place] [address]DrKianna Tripathi PROF 14(COMP METB)on 023 Albumin [Mass/Vol] 2.6 g/dL Critically low 3.4-5.0 Th [facility] Comment on above: Performed By: #### C MP ####[facility] [address]pthtusyg[address] [place] [address]Dr. Airam Tripathi Albumin/Globulin [Mass ratio] 0.9 {ratio} Normal [facility] Comment on above: Performed By: #### C MP ####[facility] Yxtznuqmde832[address] [place], [place] [address]Dr. Airam Tripathi ALP [Catalytic activity/Vol] 107 U/L Normal 46-116 [facility] Comment on above: Performed By: #### C MP ####[facility] Xdpyllrzuy6524[address] [place], [place] [address]Dr. Airam Tripathi ALT [Catalytic activity/Vol] 22 U/L Normal 14-59 [facility] Comment on above: Performed By: #### C MP ####[facility] [address] [place] [address]Dr. Selenaneil Deuce Anion gap [Moles/Vol] 10.0 mmol/L Normal Th [facility] Comment on above: Performed By: #### C MP ####[facility] Sqzzptylmv7[address] [place], [place] [address]Dr. Airam Tripathi AST [Catalytic activity/Vol] 19 U/L Normal 15-37 [facility] Comment on above: Performed By: #### C MP ####[facility] Aofuvolpae405[address] [place], [place] [address]Dr. Airam Tripathi Bilirubin [Mass/Vol] 0.2 mg/dL Normal 0.2-1.0 [facility] Comment on above: Performed By: #### C MP ####[facility] Lryffkrphr178[address] [place], [place] [address]Dr. Airam Tripathi Calcium [Mass/Vol] 8.1 mg/dL Critically low 8.5-10.1 [facility] Comment on above: Performed By: #### C MP ####[facility] Tqvpkglhrd512[address] [place], [place] [address]Dr. Airam Tripathi Chloride [Moles/Vol] 100 mmol/L Normal 98-107 [facility] Comment on above: Performed By: #### C MP ####[facility] Qibabgeehh484398 [address] [place], [place] [address]Dr. Airam Tripathi CO2 [Moles/Vol] 26.2 mmol/L Normal 21.0-32.0 [facility] Comment on above: Performed By: #### C MP ####[facility] Mgpdqncxqr726[address] [place], [place] [address]Dr. Airam Tripathi Creatinine [Mass/Vol] 1.90 mg/dL Critically high 0.55-1.02 [facility] Comment on above: Performed By: #### C MP ####[facility] Jlkmzeqlfa918[address] [place], [place] [address]Dr. Airam Tripathi EGFR-AF BARBADIAN 33 mL/min/1.73m2 Critically low >=60 [facility] Comment on above: Performed By: #### C MP ####[facility] Ygvtydzjnf[address] [place] [address]Dr. Airam Deuce EGFR-NON AF BAR[place]IAN 27 mL/min/1.73m2 Critically low >=60 [facility] Comment on above: Performed By: #### C MP ####[facility] Wwvrsikvxy7917[address] [place], [place] [address]Dr. Airam Deuce Globulin (S) [Mass/Vol] 2.8 g/dL Normal [facility] Comment on above: Performed By: #### C MP ####[facility] Hcrjumbbks789[address] [place], [place] [address]Dr. Selenaneil Deuce Glucose [Mass/Vol] 115 mg/dL Critically high 74-106 T [facility] Comment on above: Performed By: #### C MP ####[facility] Lmdmipcedl8922[address] [place], [place] [address]Dr. Airam Tripathi Potassium [Moles/Vol] 5.2 mmol/L Critically high 3.5-5.1 [facility] Comment on above: Performed By: #### C MP ####[facility] Qltshzfhts6488[address] [place], [place] [address]Dr. Selenaneil Deuce Protein [Mass/Vol] 5.4 g/dL Critically low 6.4-8.2 Th [facility] Comment on above: Performed By: #### C MP ####[facility] Ebdvoiskzn883[address] [place], [place] [address]Dr. Airam Deuce Sodium [Moles/Vol] 131 mmol/L Critically low 136-145 Th [facility] Comment on above: Performed By: #### C MP ####[facility] Sfwlthnpzl1245[address] [place], [place] [address]Dr. Airam Tripathi Urea nitrogen [Mass/Vol] 41.0 mg/dL Critically high 7.0-18.0 [facility] Comment on above: Performed By: #### C MP ####[facility] Qkmifguocv69039[address] [place], [place] [address]Dr. Airam Tripathi Urea nitrogen/Creatinine [Mass ratio] 21.6 mg/mg Normal [facility] Comment on above: Performed By: #### C MP ####[facility] Sekmfctszf498[address] [place], [place] [address]Dr. Airam Tripathi TYPE AND SCREENon 10-06-2022 TYPE AND SCREEN Negative Normal [facility] Comment on above: Performed By: #### T NS ####[facility] Eqmpkswmky8680[address] [place], [place] [address]Dr. Airam Tripathi CBC AUTO DIFFon 10-05-2022 BASO # 0.0 103/ul Normal 0.0-0.1 [facility] Comment on above: Performed By: #### C BC ####[facility] Hkgafltdcm295[address] [place], [place] [address]Dr. Airam Tripathi Basophils/100 WBC (Bld) 0.5 % Normal 0.2-2.0 [facility] Comment on above: Performed By: #### C BC ####[facility] Yksojufisc368[address] [place], [place] [address]Dr. Airam Tripathi EO # 0.2 103/ul Normal 0.0-0.7 [facility] Comment on above: Performed By: #### C BC ####[facility] Andtzpulfq6767[address] [place], [place] [address]Dr. Airam Tripathi Eosinophils/100 WBC (Bld) 3.2 % Normal 0.9-7.0 [facility] Comment on above: Performed By: #### C BC ####[facility] Sdopnxyoym518[address] [place], [place] [address]Dr. Airam Tripathi Erythrocyte distribution width (RBC) [Ratio] 15.2 % Critically high 11.0-15.0 [facility] Comment on above: Performed By: #### C BC ####[facility] Tywltgybez4714[address] [place], [place] [address]Dr. Airam Tripathi Hematocrit (Bld) [Volume fraction] 24.7 % Critically low 36.0-48.0 [facility] Comment on above: Performed By: #### C BC ####[facility] [address] [place] [address]Dr. Airam Tripathi Hemoglobin (Bld) [Mass/Vol] 7.6 g/dL Critically low 12.0-16.0 [facility] Comment on above: Performed By: #### C BC ####[facility] [address]ecyx[address] [place] [address]Dr. Airam Tripathi IG # 0.02 10e3/ul Normal 0.00-0.03 [facility] Comment on above: Performed By: #### C BC ####[facility] T[address]igz[address] [place] [address]Dr. Airam Tripathi IG % 0.3 % Normal 0.0-0.5 [facility] Comment on above: Performed By: #### C BC ####[facility] [address]hpytuh[address] [place] [address]Dr. Airam Deuce LYMPH # 1.1 103/ul Critically low 1.2-3.8 [facility] Comment on above: Performed By: #### C BC ####[facility] Telfvnpqol[address] [place] [address]Dr. Airam Deuce Lymphocytes/100 WBC (Bld) 18.4 % Critically low 20.5-60.0 [facility] Comment on above: Performed By: #### C BC ####[facility] Pesngeqybk5467[address] [place], [place] [address]Dr. Airam Tripathi MANUAL DIFF REQ NO Normal [facility] Comment on above: Performed By: #### C BC ####[facility] Lbvnuqksgm[address] [place] [address]Dr. Airam Tripathi MCH (RBC) [Entitic mass] 28.5 pg Normal 26.7-34.0 [facility] Comment on above: Performed By: #### C BC ####[facility] Loloveuwpg698[address] [place], [place] [address]Dr. Airam Deuce MCHC (RBC) [Mass/Vol] 30.8 g/dL Normal 29.9-35.2 [facility] Comment on above: Performed By: #### C BC ####[facility] Sefwypfpeg399[address] [place], [place] [address]Dr. Airam Deuce MCV (RBC) [Entitic vol] 92.5 fL Normal 81.0-99.0 [facility] Comment on above: Performed By: #### C BC ####[facility] P[address]wszdour[address] [place] [address]Dr. Airam Tripathi MONO # 0.6 103/ul Normal 0.3-0.8 [facility] Comment on above: Performed By: #### C BC ####[facility] Itegstaejv742[address] [place], [place] [address]Dr. Airam Deuce Monocytes/100 WBC (Bld) 10.0 % Normal 1.7-12.0 [facility] Comment on above: Performed By: #### C BC ####[facility] Lldprespfj432[address] [place], [place] [address]Dr. Airam Deuce NEUT # 4.0 103/ul Normal 1.4-6.5 [facility] Comment on above: Performed By: #### C BC ####[facility] Wljdwrswmn044[address] [place], [place] [address]Dr. Selenaneil Tripathi Neutrophils/100 WBC (Bld) 67.6 % Normal 43.0-75.0 [facility] Comment on above: Performed By: #### C BC ####[facility] Qbxthyhxkh7450[address] [place], [place] [address]Dr. Airam Deuce Platelet mean volume (Bld) [Entitic vol] 8.8 fL Critically low 9.5-13.5 [facility] Comment on above: Performed By: #### C BC ####[facility] Kgkscboycu219[address] [place], [place] [address]Dr. Airam Deuce PLT 226 103/ul Normal 150-450 [facility] Comment on above: Performed By: #### C BC ####[facility] Ljtwwbyfnn[address] [place], [place] [address]Dr. Selenaneil Deuce RBC 2.67 106/ul Critically low 4.20-5.40 [facility] Comment on above: Performed By: #### C BC ####[facility] Ptniwjgavm616[address] [place], [place] [address]Dr. Airam Tripathi WBC 5.9 103/ul Normal 4.0-11.0 [facility] Comment on above: Performed By: #### C BC ####[facility] [address]ax[address]kmxi[address] [place] [address]Dr. Airam Tripathi Covid-19 PCR (CVDTB)on 09-24 SARS-CoV-2 (COVID-19) RNA MIKE+probe Ql (Unsp spec) Not detected Normal NOT DETECTED [facility] Comment on above: Result Comment: When [...] for this test is supported by the [employer] Specialist of Health and Human Service's declaration that [...] be used). Performed By: #### C VDTBH ####[facility] [address] [place] [address]Dr. Airam Tripahti MAGNESIUMon 10-05-2022 Magnesium [Mass/Vol] 1.7 mg/dL Critically low 1.8-2.4 [facility] Comment on above: Performed By: #### M G, CMP ####[facility] Sugobjbgud[address] [place] [address]DrKianna Airam Deuce POINT OF CARE GLUCOSEon 09-24 Glucose [Mass/Vol] 92 mg/dL Normal 74-106 [facility] Comment on above: Performed By: #### P OCGLUC ####[facility] [address]qdvm[address] [place] [address]DrKianna Airam Deuce PROF 14(COMP METB)on 023 Albumin [Mass/Vol] 2.9 g/dL Critically low 3.4-5.0 [facility] Comment on above: Performed By: #### Nadya Calderon, CMP ####[facility] Wttnzjhzhz[address] [place] [address]Dr. Airam Tripathi Albumin/Globulin [Mass ratio] 0.9 {ratio} Normal [facility] Comment on above: Performed By: #### Nadya Calderon, CMP ####[facility] Hyevyaeqiq[address] [place] [address]Dr. Airam Tripathi ALP [Catalytic activity/Vol] 122 U/L Critically high 46-116 [facility] Comment on above: Performed By: #### Nadya Calderon, CMP ####[facility] Zpgyavbsey[address] [place], [place] [address]Dr. Airam Tripathi ALT [Catalytic activity/Vol] 24 U/L Normal 14-59 [facility] Comment on above: Performed By: #### Nadya Calderon, CMP ####[facility] Srxjxjiwqa58[address] [place], [place] [address]Dr. Airam Tripathi Anion gap [Moles/Vol] 13.1 mmol/L Normal [facility] Comment on above: Performed By: #### Nadya Calderon, CMP ####[facility] Ksckojnwgy7800[address] [place], [place] [address]Dr. Airam Tripathi AST [Catalytic activity/Vol] 21 U/L Normal 15-37 [facility] Comment on above: Performed By: #### Nadya Calderon, CMP ####[facility] Gzrvwnndet602[address] [place], [place] [address]Dr. Airam Tripathi Bilirubin [Mass/Vol] 0.2 mg/dL Normal 0.2-1.0 [facility] Comment on above: Performed By: #### Nadya Calderon, CMP ####[facility] Dwamhtjpxq314[address] [place], [place] [address]Dr. Airam Tripathi Calcium [Mass/Vol] 8.4 mg/dL Critically low 8.5-10.1 [facility] Comment on above: Performed By: #### Nadya Calderon, CMP ####[facility] Ysigubdnha724[address] [place], [place] [address]Dr. Airam Tripathi Chloride [Moles/Vol] 102 mmol/L Normal 98-107 [facility] Comment on above: Performed By: #### Nadya Calderon, CMP ####[facility] Byomhwvqxu555[address] [place], [place] [address]Dr. Airam Tripathi CO2 [Moles/Vol] 23.2 mmol/L Normal 21.0-32.0 [facility] Comment on above: Performed By: #### Nadya Calderon, CMP ####[facility] Kctuoywpgh376[address] [place], [place] [address]Dr. Airam Tripathi Creatinine [Mass/Vol] 1.96 mg/dL Critically high 0.55-1.02 [facility] Comment on above: Performed By: #### Nadya Calderon, CMP ####[facility] Racidhgbwu9050[address] [place], [place] [address]Dr. Aiarm Tripathi EGFR-AF [place] 32 mL/min/1.73m2 Critically low >=60 [facility] Comment on above: Performed By: #### Nadya Calderon, CMP ####[facility] Blivmtkyhq469[address] [place], [place] [address]Dr. Airam Tripathi EGFR-NON AF [place] 26 mL/min/1.73m2 Critically low >=60 [facility] Comment on above: Performed By: #### Nadya Calderon, CMP ####[facility] Ruyfuohvlg66[address] [place], [place] [address]Dr. Airam Tripathi Globulin (S) [Mass/Vol] 3.2 g/dL Normal [facility] Comment on above: Performed By: #### M Yumiko, CMP ####[facility] Ebrvpmecdi537[address] [place], [place] [address]Dr. Airam Tripathi Glucose [Mass/Vol] 68 mg/dL Critically low 74-106 Th [facility] Comment on above: Performed By: #### Nadya Calderon, CMP ####[facility] Iouauhifqh358[address] [place], [place] [address]Dr. Airam Tripathi Potassium [Moles/Vol] 5.3 mmol/L Critically high 3.5-5.1 [facility] Comment on above: Performed By: #### M Yumiko, CMP ####[facility] Rihjwabadh144[address] [place], [place] [address]Dr. Airam Tripathi Protein [Mass/Vol] 6.1 g/dL Critically low 6.4-8.2 Th [facility] Comment on above: Performed By: #### M G, CMP ####[facility] Afkjueetsl345[address] [place], [place] [address]Dr. Airam Tripathi Sodium [Moles/Vol] 133 mmol/L Critically low 136-145 Th [facility] Comment on above: Performed By: #### M G, CMP ####[facility] Jczodrfhgy454[address] [place], [place] [address]Dr. Airam Tripathi Urea nitrogen [Mass/Vol] 39.0 mg/dL Critically high 7.0-18.0 [facility] Comment on above: Performed By: #### M Yumiko, CMP ####[facility] Wjvqrcbwbn29[address] [place], [place] [address]Dr. Airam Tripathi Urea nitrogen/Creatinine [Mass ratio] 19.9 mg/mg Normal [facility] Comment on above: Performed By: #### M G, CMP ####[facility] Zrrjiwdble06[address] [place], [place] [address]Dr. Airam Tripathi SODIUM RANDOM URINEon 2022 Sodium (U) [Moles/Vol] 37 mmol/L Normal 30-90 Th [facility] Comment on above: Performed By: #### N AU ####[facility] Meiorncffn0913[address] [place], [place] [address]Dr. Airam Tripathi UA RANDOM W/MICROSCOPICon BACTERIA TRACE Abnormal NONE SEEN [facility] Comment on above: Performed By: #### U AMIC ####[facility] Wvleythwbc077[address] [place], [place] [address]Dr. Airam Tripathi Bilirubin Ql (U) Negative Normal NEGATIVE [facility] Comment on above: Performed By: #### U AMIC ####[facility] Iitntdptpl337[address] [place], [place] [address]Dr. Airam Tripathi CAST SEEN Abnormal NONE SEEN [facility] Comment on above: Performed By: #### U AMIC ####[facility] Db[address]vpszgw[address] [place] [address]Dr. Airam Tripathi Clarity (U) CLEAR Normal CLEAR [facility] Comment on above: Performed By: #### U AMIC ####[facility] Howdnlpekd63[address] [place] [address]Dr. Airam Tripathi Color (U) YELLOW Normal YELLOW [facility] Comment on above: Performed By: #### U AMIC ####[facility] Hslbqppoxl60[address] [place], [place] [address]Dr. Airam Tripathi Crystals LM Nom (Urine sed) NONE SEEN Normal NONE SEEN [facility] Comment on above: Performed By: #### U AMIC ####[facility] Hkzljshvfv1290[address] [place], [place] [address]Dr. Airam Tripathi Epithelial cells LM Ql (Urine sed) RARE Normal NONE SEEN /RARE [facility] Comment on above: Performed By: #### U AMIC ####[facility] Ovvepfjgzu144[address] [place], [place] [address]Dr. Airam Tripathi Glucose Ql (U) Negative Normal NEGATIVE [facility] Comment on above: Performed By: #### U AMIC ####[facility] Tofaiofudf9[address] [place], [place] [address]Dr. Airam Tripathi Hemoglobin Ql (U) Negative Normal NEGATIVE [facility] Comment on above: Performed By: #### U AMIC ####[facility] Hrbmpqezjo3025[address] [place], [place] [address]Dr. Airam Tripathi HYALINE CAST RARE Normal [facility] Comment on above: Performed By: #### U AMIC ####[facility] Sxngbdvfrn060[address] [place], [place] [address]Dr. Airam Tripathi Ketones Ql (U) TRACE Abnormal NEGATIVE [facility] Comment on above: Performed By: #### U AMIC ####[facility] Wkknpriaxg2233[address] [place], [place] [address]Dr. Airam Tripathi LEUKOCYTES Negative Normal NEGATIVE [facility] Comment on above: Performed By: #### U AMIC ####[facility] Xjfupvsdfa179[address] [place], [place] [address]Dr. Airam Tripathi MUCOUS NONE SEEN Normal NONE SEEN [facility] Comment on above: Performed By: #### U AMIC ####[facility] [address]qeusooam[address] [place] [address]Dr. Airam Tripathi Nitrite Ql (U) Negative Normal NEGATIVE [facility] Comment on above: Performed By: #### U AMIC ####[facility] Ngjsjhrwce64[address] [place] [address]Dr. Airam Tripathi pH (U) 5.0 [pH] Normal 5-9 [facility] Comment on above: Performed By: #### U AMIC ####[facility] Iratjjmwwf613[address] [place], [place] [address]Dr. Airam Tripathi RBC 0-2 Normal 0-2 [facility] Comment on above: Performed By: #### U AMIC ####[facility] Hvysomnsny204[address] [place], [place] [address]Dr. Airam Tripathi SPEC GRAVITY 1.015 Normal 1.005-<=1. 025 [facility] Comment on above: Performed By: #### U AMIC ####[facility] Kopsglyqrk588[address] [place], [place] [address]Dr. Airam Tripathi UA PROTEIN Negative Normal NEGATIVE/ TRACE [facility] Comment on above: Performed By: #### U AMIC ####[facility] W[address]hrnavgz5[address] [place] [address]Dr. Airam Tripathi Urobilinogen Qn (U) 0.2 {Ligia'U}/dL Normal 0.2 - 1. 0 [facility] Comment on above: Performed By: #### U AMIC ####[facility] Ozfgetshrd62[address] [place], [place] [address]Dr. Airam Tripathi WBC NONE SEEN Normal NONE SEEN [facility] Comment on above: Performed By: #### U AMIC ####[facility] V[address]wfqtnk[address] [place] [address]Dr. Airam Tripathi CBC AUTO DIFFon 10-04-2022 BASO # 0.0 103/ul Normal 0.0-0.1 [facility] Comment on above: Performed By: #### C BC ####[facility] Z[address]xqketw[address] [place] [id number]. Airam Tripathi Basophils/100 WBC (Bld) 0.3 % Normal 0.2-2.0 [facility] Comment on above: Performed By: #### C BC ####[facility] Hbcoezxifb298[address] [place], [place] [address]Dr. Airam Tripathi EO # 0.2 103/ul Normal 0.0-0.7 [facility] [facility] Comment on above: Performed By: #### C BC ####[facility] Gxdgtpnfrh34[address] [place], [place] [address]Dr. Airam Tripathi Eosinophils/100 WBC (Bld) 3.2 % Normal 0.9-7.0 [facility] Comment on above: Performed By: #### C BC ####[facility] Qzsniyrfxy17[address] [place], [place] [address]Dr. Airam Tripathi Erythrocyte distribution width (RBC) [Ratio] 15.1 % Critically high 11.0-15.0 [facility] Comment on above: Performed By: #### C BC ####[facility] Imycdkgygs50[address] [place], [place] [address]Dr. Airam Tripathi Hematocrit (Bld) [Volume fraction] 27.6 % Critically low 36.0-48.0 [facility] Comment on above: Performed By: #### C BC ####[facility] Qzygxsbtog614[address] [place], [place] [address]Dr. Airam Tripathi Hemoglobin (Bld) [Mass/Vol] 8.7 g/dL Critically low 12.0-16.0 [facility] Comment on above: Performed By: #### C BC ####[facility] Bxsgcosrob5715[address] [place], [place] [address]Dr. Airam Tripathi IG # 0.03 10e3/ul Normal 0.00-0.03 [facility] Comment on above: Performed By: #### C BC ####[facility] Amxciplkzt523[address] [place], [place] [address]Dr. Airam Tripathi IG % 0.4 % Normal 0.0-0.5 [facility] Comment on above: Performed By: #### C BC ####[facility] [address]xwkxrk[address] [place] [id number]. Airam Deuce LYMPH # 1.2 103/ul Normal 1.2-3.8 [facility] Comment on above: Performed By: #### C BC ####[facility] Rrfvvyzstv0885 [place] [phone]. Airam Tripathi Lymphocytes/100 WBC (Bld) 16.4 % Critically low 20.5-60.0 [facility] Comment on above: Performed By: #### C BC ####[facility] [address]edtctpwyl[address] [place] [address]Dr. Airam Tripathi MANUAL DIFF REQ NO Normal [facility] Comment on above: Performed By: #### C BC ####[facility] Nmqvmqvckt6[address] [place], [place] [address]Dr. Airam Tripathi MCH (RBC) [Entitic mass] 28.5 pg Normal 26.7-34.0 [facility] Comment on above: Performed By: #### C BC ####[facility] Hawcktsook25[address] [place], [place] [address]Dr. Selenaneil Tripathi MCHC (RBC) [Mass/Vol] 31.5 g/dL Normal 29.9-35.2 [facility] Comment on above: Performed By: #### C BC ####[facility] Zlkazyihzo[address] [place], [place] [address]Dr. Airam Tripathi MCV (RBC) [Entitic vol] 90.5 fL Normal 81.0-99.0 [facility] Comment on above: Performed By: #### C BC ####[facility] Knozxxgdex0715[address] [place], [place] [address]Dr. Airam Tripathi MONO # 0.5 103/ul Normal 0.3-0.8 [facility] Comment on above: Performed By: #### C BC ####[facility] Urdfpdytsr4036 [place] [phone]. Airam Tripathi Monocytes/100 WBC (Bld) 7.3 % Normal 1.7-12.0 [facility] Comment on above: Performed By: #### C BC ####[facility] Dewqryvapk8190 [place] [phone]. Airam Tripathi NEUT # 5.4 103/ul Normal 1.4-6.5 [facility] Comment on above: Performed By: #### C BC ####[facility] Janstfwknw4882 [place] [phone]. Airam Tripathi Neutrophils/100 WBC (Bld) 72.4 % Normal 43.0-75.0 [facility] Comment on above: Performed By: #### C BC ####[facility] Ikhtktinkv11[address] [place] [address]Dr. Airam Tripathi Platelet mean volume (Bld) [Entitic vol] 9.1 fL Critically low 9.5-13.5 [facility] Comment on above: Performed By: #### C BC ####[facility] Pgjtshbvao[address] [place] [address]Dr. Airam Tripathi PLT 304 103/ul Normal 150-450 [facility] Comment on above: Performed By: #### C BC ####[facility] Ilyojqtfei3535 [place] [address]Dr. Airam Tripathi RBC 3.05 106/ul Critically low 4.20-5.40 [facility] Comment on above: Performed By: #### C BC ####[facility] Izlpuycxaw7079 [place] [address]Dr. Airam Trpiathi WBC 7.4 103/ul Normal 4.0-11.0 [facility] Comment on above: Performed By: #### C BC ####[facility] Igtcwfuwmc6749 [place] [address]Dr. Airam Tripathi PROF 14(COMP METB)on 023 Albumin [Mass/Vol] 3.3 g/dL Critically low 3.4-5.0 [facility] Comment on above: Performed By: #### C MP ####[facility] Zxdktzftku5114 [place] [address]Dr. Airam Tripathi Albumin/Globulin [Mass ratio] 0.9 {ratio} Normal [facility] Comment on above: Performed By: #### C MP ####[facility] Yxcmofmlqw5495 [place] [address]Dr. Airam Tripathi ALP [Catalytic activity/Vol] 127 U/L Critically high 46-116 [facility] Comment on above: Performed By: #### C MP ####[facility] Wxylgmdpph5865 [place] [address]Dr. Airam Tripathi ALT [Catalytic activity/Vol] 29 U/L Normal 14-59 [facility] Comment on above: Performed By: #### C MP ####[facility] Ykjbpjclrh863[address] [place], [place] [address]Dr. Airam Tripathi Anion gap [Moles/Vol] 14.6 mmol/L Normal Th e [facility] Comment on above: Performed By: #### C MP ####[facility] Mdpidwzdwg6770[address] [place], [place] [address]Dr. Airam Tripathi AST [Catalytic activity/Vol] 28 U/L Normal 15-37 [facility] Comment on above: Performed By: #### C MP ####[facility] Ovadtmgoeh499[address] [place], [place] [address]Dr. Airam Tripathi Bilirubin [Mass/Vol] 0.3 mg/dL Normal 0.2-1.0 [facility] Comment on above: Performed By: #### C MP ####[facility] Cgnmawlukk448[address] [place], [place] [address]Dr. Airam Tripathi Calcium [Mass/Vol] 8.9 mg/dL Normal 8.5-10.1 [facility] Comment on above: Performed By: #### C MP ####[facility] Jaknsimtnp95549[address] [place], [place] [address]Dr. Airam Tripathi Chloride [Moles/Vol] 99 mmol/L Normal 98-107 [facility] Comment on above: Performed By: #### C MP ####[facility] Hwymhlotpm3535[address] [place], [place] [address]Dr. Airam Tripathi CO2 [Moles/Vol] 25.1 mmol/L Normal 21.0-32.0 [facility] Comment on above: Performed By: #### C MP ####[facility] Htxwtdiryn0109 [place] [phone]. Airam Tripathi Creatinine [Mass/Vol] 1.42 mg/dL Critically high 0.55-1.02 [facility] Comment on above: Performed By: #### C MP ####[facility] Jqznpftuin7532 [place] [phone]. Airam Tripathi EGFR-AF BARBADIAN 46 mL/min/1.73m2 Critically low >=60 [facility] Comment on above: Performed By: #### C MP ####[facility] Hmhgnyqkys6687 [place] [phone]. Airam Tripathi EGFR-NON AF BARBADIAN 38 mL/min/1.73m2 Critically low >=60 [facility] Comment on above: Performed By: #### C MP ####[facility] Qutwkdoduj5479 [place] [address]Dr. Airam Tripathi Globulin (S) [Mass/Vol] 3.6 g/dL Normal [facility] Comment on above: Performed By: #### C MP ####[facility] Mgjituyesr7785 [place] [address]Dr. Airam Tripathi Glucose [Mass/Vol] 79 mg/dL Normal 74-106 [facility] Comment on above: Performed By: #### C MP ####[facility] Jmmtdfiqcq8844 [place] [address]Dr. Airam Tripathi Potassium [Moles/Vol] 5.7 mmol/L Critically high 3.5-5.1 [facility] Comment on above: Performed By: #### C MP ####[facility] Miynylijdv6045 [place] [phone]. Airam Tripathi Protein [Mass/Vol] 6.9 g/dL Normal 6.4-8.2 [facility] Comment on above: Performed By: #### C MP ####[facility] Cawaggmzyj5007 [place] [phone]. Airam Tripathi Sodium [Moles/Vol] 133 mmol/L Critically low 136-145 Th [facility] Comment on above: Performed By: #### C MP ####[facility] Bzpsuhovnb1641 [place] [address]Dr. Airam Tripathi Urea nitrogen [Mass/Vol] 35.0 mg/dL Critically high 7.0-18.0 [facility] Comment on above: Performed By: #### C MP ####[facility] Hfcqxaajkz1916[address] [place], [place] [address]Dr. Airam Tripathi Urea nitrogen/Creatinine [Mass ratio] 24.6 mg/mg Normal [facility] Comment on above: Performed By: #### C MP ####[facility] Dnfjxumzvv6[address] [place], [place] [address]Dr. Airam Tripathi OSMOLALITYon 10-02-2022 Osmolality [Osmolality] 277 mosm/kg Normal 275-295 [facility] Comment on above: Performed By: #### O SMO ####[facility] Bawzoomqrr286[address] [place], [place] [address]Dr. Airam Deuce CBC AUTO DIFFon 09-29-2022 BASO # 0.0 103/ul Normal 0.0-0.1 [facility] Comment on above: Performed By: #### C BC ####[facility] Kqrhyrorwb523[address] [place], [place] [address]Dr. Airam Deuce Basophils/100 WBC (Bld) 0.5 % Normal 0.2-2.0 [facility] Comment on above: Performed By: #### C BC ####[facility] Ugfnnlnrek88[address] [place], [place] [address]Dr. Airam Tripathi EO # 0.2 103/ul Normal 0.0-0.7 [facility] Comment on above: Performed By: #### C BC ####[facility] Wmpkszzgsf828[address] [place], [place] [address]Dr. Airam Deuce Eosinophils/100 WBC (Bld) 3.2 % Normal 0.9-7.0 [facility] Comment on above: Performed By: #### C BC ####[facility] Wqbekvopqr725[address] [place], [place] [address]Dr. Selenaneil Tripathi Erythrocyte distribution width (RBC) [Ratio] 15.1 % Critically high 11.0-15.0 [facility] Comment on above: Performed By: #### C BC ####[facility] Idhezightk6476 [place] [address]Dr. Airam Tripathi Hematocrit (Bld) [Volume fraction] 26.2 % Critically low 36.0-48.0 [facility] Comment on above: Performed By: #### C BC ####[facility] Gkkwlbhmpa6452 [place] [address]Dr. Airam Deuce Hemoglobin (Bld) [Mass/Vol] 8.1 g/dL Critically low 12.0-16.0 [facility] Comment on above: Performed By: #### C BC ####[facility] Pkxzygfoke4[address] [place], [place] [address]Dr. Airam Tripathi IG # 0.02 10e3/ul Normal 0.00-0.03 [facility] Comment on above: Performed By: #### C BC ####[facility] Uivovgnbiw555[address] [place], [place] [address]Dr. Airam Tripathi IG % 0.4 % Normal 0.0-0.5 [facility] Comment on above: Performed By: #### C BC ####[facility] Budipoofga[address] [place], [place] [address]DrKianna Selenaneil Tripathi LYMPH # 1.3 103/ul Normal 1.2-3.8 [facility] Comment on above: Performed By: #### C BC ####[facility] Byoejgyzsu3827[address] [place], [place] [address]DrKianna Tripathi Lymphocytes/100 WBC (Bld) 22.6 % Normal 20.5-60.0 [facility] Comment on above: Performed By: #### C BC ####[facility] Ztqavadrym[address] [place], [place] [address]DrKianna Selenaneil Tripathi MANUAL DIFF REQ NO Normal [facility] Comment on above: Performed By: #### C BC ####[facility] Punqdxsmxp315[address] [place], [place] [address]DrKianna Tripathi MCH (RBC) [Entitic mass] 28.0 pg Normal 26.7-34.0 [facility] Comment on above: Performed By: #### C BC ####[facility] Ekxfxfafep8959 [place] [phone]. Airam Tripathi MCHC (RBC) [Mass/Vol] 30.9 g/dL Normal 29.9-35.2 [facility] Comment on above: Performed By: #### C BC ####[facility] Abbinkppqd7391 [place] [phone] Tripathi MCV (RBC) [Entitic vol] 90.7 fL Normal 81.0-99.0 [facility] Comment on above: Performed By: #### C BC ####[facility] Rsowhysvcz4145 [place] [phone] Tripathi MONO # 0.5 103/ul Normal 0.3-0.8 [facility] Comment on above: Performed By: #### C BC ####[facility] Rtpkqjydtb6298 [place] [address]DrKianna Tripathi Monocytes/100 WBC (Bld) 9.6 % Normal 1.7-12.0 [facility] Comment on above: Performed By: #### C BC ####[facility] Clchwdkwll[address] [place], [place] [address]DrKianna Tripathi NEUT # 3.6 103/ul Normal 1.4-6.5 [facility] Comment on above: Performed By: #### C BC ####[facility] Kiqwwpqaug[address] [place], [place] [address]DrKianna Tripathi Neutrophils/100 WBC (Bld) 63.7 % Normal 43.0-75.0 [facility] Comment on above: Performed By: #### C BC ####[facility] Cslcifkuiv4738 [place] [phone] Tripathi Platelet mean volume (Bld) [Entitic vol] 9.4 fL Critically low 9.5-13.5 [facility] Comment on above: Performed By: #### C BC ####[facility] Bnsjrprrrr0428 [place] [phone] Tripathi PLT 258 103/ul Normal 150-450 [facility] Comment on above: Performed By: #### C BC ####[facility] Dgtfstukdl5400 [place] [address]Dr. Airam Tripathi RBC 2.89 106/ul Critically low 4.20-5.40 [facility] Comment on above: Performed By: #### C BC ####[facility] Bkzssifqwq1862 [place] [phone]. Airam Tripathi WBC 5.6 103/ul Normal 4.0-11.0 [facility] Comment on above: Performed By: #### C BC ####[facility] Xdrronkygb3010 [place] [address]Dr. Airam Tripathi PROF 14(COMP METB)on 023 Albumin [Mass/Vol] 3.0 g/dL Critically low 3.4-5.0 [facility] Comment on above: Performed By: #### C MP ####[facility] Yovdfsfcvh723[address] [place], [place] [address]Dr. Airam Tripathi Albumin/Globulin [Mass ratio] 1.1 {ratio} Normal [facility] Comment on above: Performed By: #### C MP ####[facility] Ekjnxwhclr4624[address] [place], [place] [address]Dr. Airam Tripathi ALP [Catalytic activity/Vol] 102 U/L Normal 46-116 [facility] Comment on above: Performed By: #### C MP ####[facility] Bfjtouvaye327[address] [place], [place] [address]Dr. Airam Tripathi ALT [Catalytic activity/Vol] 20 U/L Normal 14-59 [facility] Comment on above: Performed By: #### C MP ####[facility] Nnrweqrzul73[address] [place], [place] [address]Dr. Airam Tripathi Anion gap [Moles/Vol] 11.1 mmol/L Normal [facility] Comment on above: Performed By: #### C MP ####[facility] Siqoujptlj613[address] [place], [place] [address]Dr. Airam Tripathi AST [Catalytic activity/Vol] 18 U/L Normal 15-37 [facility] Comment on above: Performed By: #### C MP ####[facility] Efdfnyplya7682 [place] [phone]. Airam Tripathi Bilirubin [Mass/Vol] 0.2 mg/dL Normal 0.2-1.0 [facility] Comment on above: Performed By: #### C MP ####[facility] Rcsrpnjtlo2524 [place] [phone]. Airam Tripathi Calcium [Mass/Vol] 8.0 mg/dL Critically low 8.5-10.1 Th [facility] Comment on above: Performed By: #### C MP ####[facility] Jwtjjqofpe0250 [place] [address]Dr. Airam Tripathi Chloride [Moles/Vol] 100 mmol/L Normal 98-107 [facility] Comment on above: Performed By: #### C MP ####[facility] Euyafosczf32[address] [place], [place] [address]Dr. Airam Tripathi CO2 [Moles/Vol] 24.8 mmol/L Normal 21.0-32.0 [facility] Comment on above: Performed By: #### C MP ####[facility] Ojbrusipfd6026[address] [place], [place] [address]Dr. Airam Tripathi Creatinine [Mass/Vol] 1.11 mg/dL Critically high 0.55-1.02 [facility] Comment on above: Performed By: #### C MP ####[facility] Gwphopylpg663[address] [place], [place] [address]Dr. Airam Tripathi EGFR-AF BARBADIAN >60 Normal >=60 [facility] Comment on above: Performed By: #### C MP ####[facility] Vgtljtowfy4227 [place] [phone]. Airam Deuce EGFR-NON AF BAR[place]IAN 50 mL/min/1.73m2 Critically low >=60 [facility] Comment on above: Performed By: #### C MP ####[facility] Kloappfkqf7474 [place] [phone]. Airam Tripathi Globulin (S) [Mass/Vol] 2.8 g/dL Normal [facility] Comment on above: Performed By: #### C MP ####[facility] Lzvgdydsiy8527 [place] [phone]. Airam Tripathi Glucose [Mass/Vol] 77 mg/dL Normal 74-106 [facility] Comment on above: Performed By: #### C MP ####[facility] Owymbxduxt8763 [place] [phone]. Airam Tripathi Potassium [Moles/Vol] 4.9 mmol/L Normal 3.5-5.1 [facility] Comment on above: Performed By: #### C MP ####[facility] Viwuvyupyr8288 [place] [phone]. Airam Tripathi Protein [Mass/Vol] 5.8 g/dL Critically low 6.4-8.2 [facility] Comment on above: Performed By: #### C MP ####[facility] Zkmxjgeyxs605[address] [place], [place] [address]Dr. Airam Tripathi Sodium [Moles/Vol] 131 mmol/L Critically low 136-145 [facility] Comment on above: Performed By: #### C MP ####[facility] Hhcsxcejxv0138[address] [place], [place] [address]Dr. Airam Tripathi Urea nitrogen [Mass/Vol] 33.0 mg/dL Critically high 7.0-18.0 [facility] Comment on above: Performed By: #### C MP ####[facility] Mlewemmwbp8027[address] [place], [place] [address]Dr. Airam Tripathi Urea nitrogen/Creatinine [Mass ratio] 29.7 mg/mg Normal [facility] Comment on above: Performed By: #### C MP ####[facility] Durzjdsbrg5602 [place] [address]Dr. Airam Deuce ECHOCARDIO M/2D COMPLETEon 0 09-21-2022 ECHOCARDIO M/2D COMPLETE Normal [facility] OSMOLALITYon 09-21-2022 Osmolality [Osmolality] 282 mosm/kg Normal 275-295 [facility] Comment on above: Performed By: #### O SMO ####[facility] Aeavjsaycz2526[address] [place], [place] [address]Dr. Airam Tripathi PHOSPHOLIPIDSon 09-21-2022 Phospholipids, Serum 249 mg/dL Normal 151-288 [facility] Comment on above: Performed By: #### P HOSLIP ####[facility] Lvjkknqeiu718[address] [place], [place] [address]Dr. Airam Tripathi CBC AUTO DIFFon 09-20-2022 BASO # 0.0 103/ul Normal 0.0-0.1 [facility] Comment on above: Performed By: #### C BC ####[facility] Pfwvtnmpri526[address] [place], [place] [address]Dr. Airam Tripathi Basophils/100 WBC (Bld) 0.5 % Normal 0.2-2.0 [facility] Comment on above: Performed By: #### C BC ####[facility] Jgeplamfqq478[address] [place], [place] [address]Dr. Selenaneil Tripathi EO # 0.2 103/ul Normal 0.0-0.7 [facility] Comment on above: Performed By: #### C BC ####[facility] Gcuzyjfqsg889[address] [place], [place] [address]Dr. Airam Tripathi Eosinophils/100 WBC (Bld) 2.9 % Normal 0.9-7.0 [facility] Comment on above: Performed By: #### C BC ####[facility] Rbetuzhpbw455398 [address] [place], [place] [address]Dr. Selenaneil Deuce Erythrocyte distribution width (RBC) [Ratio] 15.4 % Critically high 11.0-15.0 [facility] Comment on above: Performed By: #### C BC ####[facility] Adcdyiisnq138398 [address] [place], [place] [address]Dr. Airam Tripathi Hematocrit (Bld) [Volume fraction] 26.3 % Critically low 36.0-48.0 [facility] Comment on above: Performed By: #### C BC ####[facility] Diomvvojlq119[address] [place], [place] [address]Dr. Airam Tripathi Hemoglobin (Bld) [Mass/Vol] 8.2 g/dL Critically low 12.0-16.0 [facility] Comment on above: Performed By: #### C BC ####[facility] Ttwlgiclsw6698 [place] [address]Dr. Airam Deuce IG # 0.03 10e3/ul Normal 0.00-0.03 [facility] Comment on above: Performed By: #### C BC ####[facility] Nsabgrkmhh4623 [place] [address]Dr. Airam Tripathi IG % 0.4 % Normal 0.0-0.5 [facility] Comment on above: Performed By: #### C BC ####[facility] Ddhfxopakf146[address] [place], [place] [address]DrKianna Tripathi LYMPH # 1.9 103/ul Normal 1.2-3.8 [facility] Comment on above: Performed By: #### C BC ####[facility] Iyqxmabdmn728[address] [place], [place] [address]Dr. Airam Tripathi Lymphocytes/100 WBC (Bld) 23.0 % Normal 20.5-60.0 [facility] Comment on above: Performed By: #### C BC ####[facility] Sqyruhmquq94[address] [place], [place] [address]Dr. Selenaneil Tripathi MANUAL DIFF REQ NO Normal [facility] Comment on above: Performed By: #### C BC ####[facility] Aycchsvqfh1518[address] [place], [place] [address]DrKianna Airam Deuce MCH (RBC) [Entitic mass] 28.5 pg Normal 26.7-34.0 [facility] Comment on above: Performed By: #### C BC ####[facility] Vojftonmrf448[address] [place], [place] [address]DrKianna Airam Deuce MCHC (RBC) [Mass/Vol] 31.2 g/dL Normal 29.9-35.2 [facility] Comment on above: Performed By: #### C BC ####[facility] Bhdenwhyei977[address] [place], [place] [address]DrKianna Airam Deuce MCV (RBC) [Entitic vol] 91.3 fL Normal 81.0-99.0 [facility] Comment on above: Performed By: #### C BC ####[facility] Xokkmlvxtd682[address] [place], [place] [address]Dr. Airam Tripathi MONO # 0.7 103/ul Normal 0.3-0.8 [facility] Comment on above: Performed By: #### C BC ####[facility] Xbkxzfrlbf5284 [place] [address]Dr. Airam Tripathi Monocytes/100 WBC (Bld) 7.7 % Normal 1.7-12.0 [facility] Comment on above: Performed By: #### C BC ####[facility] Zqdijyjtbd2577 [place] [address]Dr. Airam Tripathi NEUT # 5.5 103/ul Normal 1.4-6.5 [facility] Comment on above: Performed By: #### C BC ####[facility] Xdzvcpnrzf6354 [place] [address]Dr. Airam Tripathi Neutrophils/100 WBC (Bld) 65.5 % Normal 43.0-75.0 [facility] Comment on above: Performed By: #### C BC ####[facility] Pfapgnzlyy859[address] [place], [place] [address]Dr. Airam Tripathi Platelet mean volume (Bld) [Entitic vol] 9.1 fL Critically low 9.5-13.5 [facility] Comment on above: Performed By: #### C BC ####[facility] Twrsupbexr4566 [place] [address]Dr. Airam Tripathi PLT 258 103/ul Normal 150-450 [facility] Comment on above: Performed By: #### C BC ####[facility] Faxexogljx229[address] [place], [place] [address]Dr. Airam Tripathi RBC 2.88 106/ul Critically low 4.20-5.40 [facility] Comment on above: Performed By: #### C BC ####[facility] Rspqxcfiih2425[address] [place], [place] [address]Dr. Airam Tripathi WBC 8.4 103/ul Normal 4.0-11.0 [facility] Comment on above: Performed By: #### C BC ####[facility] Vhlarejmua14[address] [place], [place] [address]Dr. Yineil Tripathi PROF CHEM 8 (BAS METB)on Anion gap [Moles/Vol] 10.3 mmol/L Normal [facility] Comment on above: Performed By: #### B MP ####[facility] Ffsobfrgvl6014 [place] [address]Dr. Airam Tripathi Calcium [Mass/Vol] 7.9 mg/dL Critically low 8.5-10.1 [facility] Comment on above: Performed By: #### B MP ####[facility] Gsgevlxsgr03[address] [place], [place] [address]Dr. Airam Tripathi Chloride [Moles/Vol] 98 mmol/L Normal 98-107 [facility] Comment on above: Performed By: #### B MP ####[facility] Ddbgldlrlg360[address] [place], [place] [address]Dr. Airam Tripathi CO2 [Moles/Vol] 27.5 mmol/L Normal 21.0-32.0 [facility] Comment on above: Performed By: #### B MP ####[facility] Tdcrfdhwsl372[address] [place], [place] [address]Dr. Airam Tripathi Creatinine [Mass/Vol] 1.44 mg/dL Critically high 0.55-1.02 [facility] Comment on above: Performed By: #### B MP ####[facility] Negaxkmews8[address] [place], [place] [address]Dr. Airam Tripathi EGFR-AF BARBADIAN 45 mL/min/1.73m2 Critically low >=60 [facility] Comment on above: Performed By: #### B MP ####[facility] Hdeirhaazu715[address] [place], [place] [address]Dr. Airam Tripathi EGFR-NON AF BARBADIAN 37 mL/min/1.73m2 Critically low >=60 [facility] Comment on above: Performed By: #### B MP ####[facility] Fuiuapvjlc58[address] [place], [place] [address]Dr. Airam Tripathi Glucose [Mass/Vol] 91 mg/dL Normal 74-106 [facility] Comment on above: Performed By: #### B MP ####[facility] Smjbudenuk649[address] [place], [place] [address]Dr. Airam Tripathi Potassium [Moles/Vol] 4.8 mmol/L Normal 3.5-5.1 [facility] Comment on above: Performed By: #### B MP ####[facility] [address]th[address] [place] [address]Dr. Airam Tripathi Sodium [Moles/Vol] 131 mmol/L Critically low 136-145 Th [facility] Comment on above: Performed By: #### B MP ####[facility] Bhtkruuzto[address] [place] [address]Dr. Airam Tripathi Urea nitrogen [Mass/Vol] 40.0 mg/dL Critically high 7.0-18.0 [facility] Comment on above: Performed By: #### B MP ####[facility] Lsfloqsosk0614 [place] [address]Dr. Airam Tripathi Urea nitrogen/Creatinine [Mass ratio] 27.8 mg/mg Normal [facility] Comment on above: Performed By: #### B MP ####[facility] Enlbxjlspi70[address] [place] [address]Dr. Airam Tripathi Anion gap [Moles/Vol] 10.6 mmol/L Normal Th [facility] Comment on above: Performed By: #### B MP ####[facility] Aqcssmbjar0864[address] [place], [place] [address]Dr. Airam Tripathi Calcium [Mass/Vol] 7.9 mg/dL Critically low 8.5-10.1 [facility] Comment on above: Performed By: #### B MP ####[facility] Ykbmqasbkb39[address] [place] [address]Dr. Airam Tripathi Chloride [Moles/Vol] 101 mmol/L Normal 98-107 [facility] Comment on above: Performed By: #### B MP ####[facility] Rceykogeom748[address] [place], [place] [address]Dr. Airam Tripathi CO2 [Moles/Vol] 27.4 mmol/L Normal 21.0-32.0 [facility] Comment on above: Performed By: #### B MP ####[facility] Hdzipzklyl14[address] [place], [place] [id number]. Airam Tripathi Creatinine [Mass/Vol] 1.35 mg/dL Critically high 0.55-1.02 [facility] Comment on above: Performed By: #### B MP ####[facility] Vumxtwspro5[address] [place] [address]Dr. Selenaneil Tripathi EGFR-AF BARBADIAN 48 mL/min/1.73m2 Critically low >=60 [facility] Comment on above: Performed By: #### B MP ####[facility] Xqkvfwjmwy9550[address] [place], [place] [address]Dr. Selenaneil Deuce EGFR-NON AF BARBADIAN 40 mL/min/1.73m2 Critically low >=60 [facility] Comment on above: Performed By: #### B MP ####[facility] Gihyzkhqsk86[address] [place], [place] [address]Dr. Airam Tripathi Glucose [Mass/Vol] 114 mg/dL Critically high 74-106 T [facility] Comment on above: Performed By: #### B MP ####[facility] Msrmrnzpfn199398 [address] [place], [place] [address]Dr. Airam Tripathi Potassium [Moles/Vol] 5.0 mmol/L Normal 3.5-5.1 [facility] Comment on above: Performed By: #### B MP ####[facility] Nbqqzakhbl668[address] [place], [place] [address]Dr. Airam Tripathi Sodium [Moles/Vol] 134 mmol/L Critically low 136-145 Th [facility] Comment on above: Performed By: #### B MP ####[facility] Nfhnqywrrq790[address] [place], [place] [address]Dr. Airam Tripathi Urea nitrogen [Mass/Vol] 40.0 mg/dL Critically high 7.0-18.0 [facility] Comment on above: Performed By: #### B MP ####[facility] Pcipbygnfw760[address] [place], [place] [address]Dr. Airam Tripathi Urea nitrogen/Creatinine [Mass ratio] 29.6 mg/mg Normal [facility] Comment on above: Performed By: #### B MP ####[facility] Aklyvljbhm210[address] [place], [place] [address]Dr. Airam Tripathi PTH INTACTon 09-20-2022 PTH, Intact 104 pg/mL Critically high 15-65 [facility] Comment on above: Performed By: #### P THINT ####[facility] Zegwykujqd832[address] [place], [place] [address]Dr. Airam Tripathi BNPon 09-19-2022 Natriuretic peptide B (Bld) [Mass/Vol] 1272.0 pg/mL Critically high <=900.0 [facility] Comment on above: Performed By: #### H STROPN, TSH, K, BNP ####[facility] Ojlhuhdrvd5580[address] [place], [place] [address]Dr. Airam Deuce CBC AUTO DIFFon 09-19-2022 BASO # 0.0 103/ul Normal 0.0-0.1 [facility] Comment on above: Performed By: #### C BC ####[facility] Iuhaummvfa822[address] [place], [place] [address]Dr. Airam Tripathi Basophils/100 WBC (Bld) 0.5 % Normal 0.2-2.0 [facility] Comment on above: Performed By: #### C BC ####[facility] Vpgvbmredf49119[address] [place], [place] [address]Dr. Airam Deuce EO # 0.2 103/ul Normal 0.0-0.7 [facility] Comment on above: Performed By: #### C BC ####[facility] Jwvlkoqjad763[address] [place], [place] [address]Dr. Airam Tripathi Eosinophils/100 WBC (Bld) 2.6 % Normal 0.9-7.0 [facility] Comment on above: Performed By: #### C BC ####[facility] Ofqwqryfdl3988[address] [place], [place] [address]Dr. Airam Tripathi Erythrocyte distribution width (RBC) [Ratio] 15.5 % Critically high 11.0-15.0 [facility] Comment on above: Performed By: #### C BC ####[facility] Qltvyxqmpl422[address] [place], [place] [address]Dr. Airam Tripathi Hematocrit (Bld) [Volume fraction] 31.1 % Critically low 36.0-48.0 [facility] Comment on above: Performed By: #### C BC ####[facility] Fnpwlrcwzg3016 [place] [address]DrKianna Tripathi Hemoglobin (Bld) [Mass/Vol] 9.6 g/dL Critically low 12.0-16.0 [facility] Comment on above: Performed By: #### C BC ####[facility] Psroydwotq8433[address] [place], [place] [address]DrKianna Tripathi IG # 0.04 10e3/ul Critically high 0.00-0.03 [facility] Comment on above: Performed By: #### C BC ####[facility] Znkimebxvh000[address] [place], [place] [address]DrKianna Tripathi IG % 0.5 % Normal 0.0-0.5 [facility] Comment on above: Performed By: #### C BC ####[facility] Cqngcmqfxd0933[address] [place], [place] [address]DrKianna Tripathi LYMPH # 1.0 103/ul Critically low 1.2-3.8 [facility] Comment on above: Performed By: #### C BC ####[facility] Nnurgcjamb327[address] [place], [place] [address]DrKianna Tripathi Lymphocytes/100 WBC (Bld) 12.0 % Critically low 20.5-60.0 [facility] Comment on above: Performed By: #### C BC ####[facility] Emowfynnqr5938[address] [place], [place] [address]DrKianna Tripathi MANUAL DIFF REQ NO Normal [facility] Comment on above: Performed By: #### C BC ####[facility] Rnpgfjlpyf454[address] [place], [place] [address]DrKianna Tripathi MCH (RBC) [Entitic mass] 28.2 pg Normal 26.7-34.0 [facility] Comment on above: Performed By: #### C BC ####[facility] J[address]frsejtq[address] [place] [address]DrKianna Tripathi MCHC (RBC) [Mass/Vol] 30.9 g/dL Normal 29.9-35.2 [facility] Comment on above: Performed By: #### C BC ####[facility] Ixipjmkyfs93[address] [place] [address]DrKianna Airam Deuce MCV (RBC) [Entitic vol] 91.5 fL Normal 81.0-99.0 [facility] Comment on above: Performed By: #### C BC ####[facility] Ripwhpqnui[address] [place] [address]DrKianna Tripathi MONO # 0.5 103/ul Normal 0.3-0.8 [facility] Comment on above: Performed By: #### C BC ####[facility] Cymzibgkbo110[address] [place] [address]DrKianna Tripathi Monocytes/100 WBC (Bld) 6.4 % Normal 1.7-12.0 [facility] Comment on above: Performed By: #### C BC ####[facility] Qpqgplcrym4535[address] [place], [place] [address]Dr. Airam Tripathi NEUT # 6.4 103/ul Normal 1.4-6.5 [facility] Comment on above: Performed By: #### C BC ####[facility] Uylbffffzo801[address] [place], [place] [address]Dr. Airam Tripathi Neutrophils/100 WBC (Bld) 78.0 % Critically high 43.0-75.0 [facility] Comment on above: Performed By: #### C BC ####[facility] Mftvidqzsl268[address] [place], [place] [address]Dr. Airam Tripathi Platelet mean volume (Bld) [Entitic vol] 9.1 fL Critically low 9.5-13.5 [facility] Comment on above: Performed By: #### C BC ####[facility] Jqfmismlfc990[address] [place], [place] [address]Dr. Airam Tripathi PLT 318 103/ul Normal 150-450 [facility] Comment on above: Performed By: #### C BC ####[facility] P[address]jmqkzuww8[address] [place] [id number] Tripathi RBC 3.40 106/ul Critically low 4.20-5.40 [facility] Comment on above: Performed By: #### C BC ####[facility] Aotuffsnpp1860 [place] [id number]. Airam Tripathi WBC 8.2 103/ul Normal 4.0-11.0 [facility] Comment on above: Performed By: #### C BC ####[facility] Cgkuinodkc7329 [place], [place] [address]Fy. Airam Tripathi Covid-19 PCR (CVDTB)on 08-25 SARS-CoV-2 (COVID-19) RNA MIKE+probe Ql (Unsp spec) Not detected Normal NOT DETECTED [facility] Comment on above: Result Comment: When [...] for this test is supported by the Career Specialist of Health and Human Service's declaration that [...] be used). Performed By: #### C VDTBH ####[facility] Esmwjfopzb73[address] [place] [id number]. Airam Tripathi LACTATE/LACTIC ACIDon 2022 Lactate [Moles/Vol] 0.4 mmol/L Normal 0.4-2.0 [facility] Comment on above: Performed By: #### L ACT ####[facility] Crgwvecqvf0787 [place] [id number]. Airam Tripathi POTASSIUMon 09-19-2022 Potassium [Moles/Vol] 6.3 mmol/L Critically high 3.5-5.1 [facility] Comment on above: Performed By: #### H STROPN, TSH, K, BNP ####[facility] Dxwhuieyfk45[address] [place] [address]Dr. Airam Tripathi PROF 14(COMP METB)on 023 Albumin [Mass/Vol] 3.5 g/dL Normal 3.4-5.0 [facility] Comment on above: Performed By: #### C MP ####[facility] Cugtfsszsr6[address] [place] [address]Dr. Airam Tripathi Albumin/Globulin [Mass ratio] 1.1 {ratio} Normal [facility] Comment on above: Performed By: #### C MP ####[facility] Faxjunutwf725[address] [place], [place] [address]Dr. Airam Tripathi ALP [Catalytic activity/Vol] 113 U/L Normal 46-116 [facility] Comment on above: Performed By: #### C MP ####[facility] Bynocatssm565[address] [place], [place] [address]Dr. Airam Tripathi ALT [Catalytic activity/Vol] 26 U/L Normal 14-59 [facility] Comment on above: Performed By: #### C MP ####[facility] Zswrtzryvk235398 [address] [place], [place] [address]Dr. Airam Tripathi Anion gap [Moles/Vol] 11.5 mmol/L Normal [facility] Comment on above: Performed By: #### C MP ####[facility] Asvyxfdrlt3485 [place] [address]Dr. Airam Tripathi AST [Catalytic activity/Vol] 24 U/L Normal 15-37 [facility] Comment on above: Performed By: #### C MP ####[facility] Frnwkwhmpa9099 [place] [address]Dr. Airam Tripathi Bilirubin [Mass/Vol] 0.3 mg/dL Normal 0.2-1.0 [facility] Comment on above: Performed By: #### C MP ####[facility] Sauffrlcva26[address] [place] [address]Dr. Airam Tripathi Calcium [Mass/Vol] 8.9 mg/dL Normal 8.5-10.1 [facility] Comment on above: Performed By: #### C MP ####[facility] Njbwauzrmp7939 [place] [address]Dr. Airam Tripathi Chloride [Moles/Vol] 103 mmol/L Normal 98-107 [facility] Comment on above: Performed By: #### C MP ####[facility] Vdcwxwoxqb2025 [place] [address]Dr. Airam Tripathi CO2 [Moles/Vol] 27.8 mmol/L Normal 21.0-32.0 [facility] Comment on above: Performed By: #### C MP ####[facility] Diluqctagy7240 [place] [address]Dr. Airam Tripathi Creatinine [Mass/Vol] 1.28 mg/dL Critically high 0.55-1.02 [facility] Comment on above: Performed By: #### C MP ####[facility] Mpojycamhn36[address] [place], [place] [address]Dr. Airam Tripathi EGFR-AF BARBADIAN 52 mL/min/1.73m2 Critically low >=60 [facility] Comment on above: Performed By: #### C MP ####[facility] Qdjigeqjwq655[address] [place], [place] [address]Dr. Airam Tripathi EGFR-NON AF BARBADIAN 43 mL/min/1.73m2 Critically low >=60 [facility] Comment on above: Performed By: #### C MP ####[facility] Muzlmzfzhw239[address] [place], [place] [address]Dr. Airam Tripathi Globulin (S) [Mass/Vol] 3.2 g/dL Normal [facility] Comment on above: Performed By: #### C MP ####[facility] Ilqdwesywz4763 [place] [address]Dr. Airam Deuce Glucose [Mass/Vol] 95 mg/dL Normal 74-106 [facility] Comment on above: Performed By: #### C MP ####[facility] Tquezpmksa5982 [place] [address]Dr. Airam Deuce Potassium [Moles/Vol] 6.3 mmol/L Critically high 3.5-5.1 [facility] Comment on above: Performed By: #### C MP ####[facility] Ozabgtwtom0798 [place] [address]Dr. Airam Tripathi Protein [Mass/Vol] 6.7 g/dL Normal 6.4-8.2 [facility] Comment on above: Performed By: #### C MP ####[facility] Yxdbetcchx1324 [place] [address]Dr. Airam Tripathi Sodium [Moles/Vol] 135 mmol/L Critically low 136-145 Th [facility] Comment on above: Performed By: #### C MP ####[facility] Satcspqpfm8814 [place] [address]Dr. Airam Tripathi Urea nitrogen [Mass/Vol] 42.0 mg/dL Critically high 7.0-18.0 [facility] Comment on above: Performed By: #### C MP ####[facility] Netvejygcq292[address] [place], [place] [address]Dr. Airam Tripathi Urea nitrogen/Creatinine [Mass ratio] 32.8 mg/mg Normal [facility] Comment on above: Performed By: #### C MP ####[facility] Sncncyvqbx099[address] [place], [place] [address]Dr. Airam Tripathi TROPONIN, HIGH SENSITIVITYon 09-19-2022 HSTROP 7.1 pg/mL Normal 4.0-51.3 [facility] Comment on above: Result Comment: CUT- OFF POINTS HAVE BEEN ESTABLISHED BASED ON THE FOURTH UNIVERSAL DEFINITIONS OF MYOCARDIALINFARCTION. THE UPPER REFERENCE LIMIT (URL) OF TROPONIN, DEFINED THE 99TH PERCENTILE OFcTnI DISTRIBUTION IN A REFERENCE POPULATION, HAS BEEN CONFIRMED THE DECISION THRESHOLDFOR DE DIAGNOSIS. Performed By: #### H STROPN, TSH, K, BNP ####[facility] Gaytajaiud5940[address] [place], [place] [address]Dr. Airam Tripathi TSHon 09-19-2022 TSH 0.028 uIU/mL Critically low 0.358-3.74 0 [facility] Comment on above: Performed By: #### H STROPN, TSH, K, BNP ####[facility] Hgxqrsqvin2300[address] [place], [place] [address]Dr. Airam Tripathi UA RANDOMon 09-19-2022 Bilirubin Ql (U) Negative Normal NEGATIVE [facility] Comment on above: Performed By: #### U A ####[facility] Ojpknkyjmb280[address] [place], [place] [address]Dr. Airam Tripathi Clarity (U) CLEAR Normal CLEAR [facility] Comment on above: Performed By: #### U A ####[facility] Tonnzknmke403198 [address] [place], [place] [address]Dr. Airam Tripathi Color (U) LT. YELLOW Normal YELLOW [facility] Comment on above: Performed By: #### U A ####[facility] Xbjdddfeuo628[address] [place], [place] [address]Dr. Airam Tripathi Glucose Ql (U) Negative Normal NEGATIVE [facility] Comment on above: Performed By: #### U A ####[facility] Loelbvibgm168098 [address] [place], [place] [address]Dr. Airam Tripathi Hemoglobin Ql (U) Negative Normal NEGATIVE [facility] Comment on above: Performed By: #### U A ####[facility] Zlanmniiwl230298 [address] [place], [place] [address]Dr. Airam Tripathi Ketones Ql (U) Negative Normal NEGATIVE [facility] Comment on above: Performed By: #### U A ####[facility] Owvuqulfsn969198 [address] [place], [place] [address]Dr. Airam Tripathi LEUKOCYTES TRACE Abnormal NEGATIVE [facility] Comment on above: Performed By: #### U A ####[facility] Yqsfizbsbd217[address] [place], [place] [address]Dr. Airam Tripathi Nitrite Ql (U) Negative Normal NEGATIVE [facility] Comment on above: Performed By: #### U A ####[facility] Odtudhuxeo237398 [address] [place], [place] [address]Dr. Airam Tripathi pH (U) 5.5 [pH] Normal 5-9 [facility] Comment on above: Performed By: #### U A ####[facility] Dlpolgyahv049498 [address] [place], [place] [address]Dr. Airam Tripathi SPEC GRAVITY 1.010 Normal 1.005-<=1. 025 [facility] Comment on above: Performed By: #### U A ####[facility] Ppssvthesf69[address] [place] [address]Dr. Airam Tripathi UA PROTEIN Negative Normal NEGATIVE/ TRACE [facility] Comment on above: Performed By: #### U A ####[facility] Yyixhjhrpo8393 [place] [address]Dr. Airam Tripathi Urobilinogen Qn (U) 0.2 {Ligia'U}/dL Normal 0.2 - 1. 0 [facility] Comment on above: Performed By: #### U A ####[facility] Izssumyxnx0825[address] [place], [place] [address]Dr. Airam Tripathi URIC ACID SERUMon 09-19-2022 Urate [Mass/Vol] 6.9 mg/dL Critically high 2.6-6.0 [facility] Comment on above: Performed By: #### U TRESSA ####[facility] Waprcszsnb450[address] [place], [place] [address]Dr. Airam Tripathi URINE T PROTEIN CREAT RATIOo n 09-19-2022 UR TOTAL PROTEIN <6.0 Normal <=12.0 [facility] Comment on above: Performed By: #### U RTPCR ####[facility] Kpvbwmpnab69[address] [place], [place] [address]Dr. Airam Tripathi URINE CREAT 15.12 mg/dL Critically low 20.00-300. 00 [facility] Comment on above: Performed By: #### U RTPCR ####[facility] Sqjxlywpay516[address] [place], [place] [address]Dr. Airam Tripathi VITAMIN D 25 OHon 09-19-2022 VIT D 25-OH 75.9 ng/mL Normal [facility] Comment on above: Performed By: #### V ITAD ####[facility] Iwtrzcihks232[address] [place], [place] [address]Dr. Airam Tripathi VIT D RANGES SEE BELOW Normal [facility] Comment on above: Result Comment: <20 ng/mL Vit D deficient 20 - <30 ng/mL Vit D insufficient 30 - 100 ng/mL Vit D sufficient >100 ng/mL Potential Toxicity Performed By: #### V ITAD ####[facility] Snznzazhwe050[address] [place] [address]Dr. Airam Tripathi OSMOLALITYon 09-14-2022 Osmolality [Osmolality] 272 mosm/kg Critically low 275-295 [facility] Comment on above: Performed By: #### O SMO ####[facility] Gzhuloscqk1365[address] [place], [place] [address]Dr. Airam Tripathi CBC AUTO DIFFon 09-12-2022 BASO # 0.0 103/ul Normal 0.0-0.1 [facility] Comment on above: Performed By: #### C BC ####[facility] Yirdvhqmbw8716[address] [place], [place] [address]Dr. Airam Tripathi Basophils/100 WBC (Bld) 0.5 % Normal 0.2-2.0 [facility] Comment on above: Performed By: #### C BC ####[facility] Upscqtrkcz973[address] [place], [place] [address]DrKianna Tripathi EO # 0.2 103/ul Normal 0.0-0.7 [facility] Comment on above: Performed By: #### C BC ####[facility] Rlxttdsvnc409398 [address] [place], [place] [address]DrKianna Tripathi Eosinophils/100 WBC (Bld) 2.4 % Normal 0.9-7.0 [facility] Comment on above: Performed By: #### C BC ####[facility] Hnreqsapis485398 [address] [place], [place] [address]DrKianna Tripathi Erythrocyte distribution width (RBC) [Ratio] 14.8 % Normal 11.0-15.0 [facility] Comment on above: Performed By: #### C BC ####[facility] Ynqpaadaip615[address] [place], [place] [address]DrKianna Tripathi Hematocrit (Bld) [Volume fraction] 32.6 % Critically low 36.0-48.0 [facility] Comment on above: Performed By: #### C BC ####[facility] Mocrotxbzu376[address] [place], [place] [address]DrKianna Tripathi Hemoglobin (Bld) [Mass/Vol] 10.1 g/dL Critically low 12.0-16.0 [facility] Comment on above: Performed By: #### C BC ####[facility] Rcqvtilfjv7547 [place] [address]DrKianna Tripathi IG # 0.05 10e3/ul Critically high 0.00-0.03 [facility] Comment on above: Performed By: #### C BC ####[facility] Loxevpgduu6574 [place] [address]DrKianna Tripathi IG % 0.7 % Critically high 0.0-0.5 [facility] Comment on above: Performed By: #### C BC ####[facility] Bxyvzlqfer907[address] [place], [place] [address]DrKianna Tripathi LYMPH # 1.9 103/ul Normal 1.2-3.8 [facility] Comment on above: Performed By: #### C BC ####[facility] Vcbixbivhb140[address] [place], [place] [address]DrKianna Tripathi Lymphocytes/100 WBC (Bld) 24.7 % Normal 20.5-60.0 [facility] Comment on above: Performed By: #### C BC ####[facility] Iblvrkrbfh3464[address] [place], [place] [address]DrKianna Tripathi MANUAL DIFF REQ NO Normal [facility] Comment on above: Performed By: #### C BC ####[facility] Eearjehfuh340[address] [place], [place] [address]DrKianna Tripathi MCH (RBC) [Entitic mass] 28.0 pg Normal 26.7-34.0 [facility] Comment on above: Performed By: #### C BC ####[facility] Rkbffdtxks13[address] [place], [place] [address]DrKianna Tripathi MCHC (RBC) [Mass/Vol] 31.0 g/dL Normal 29.9-35.2 [facility] Comment on above: Performed By: #### C BC ####[facility] Twqhouwati697[address] [place], [place] [address]DrKianna Tripathi MCV (RBC) [Entitic vol] 90.3 fL Normal 81.0-99.0 [facility] Comment on above: Performed By: #### C BC ####[facility] Rbxqygzeov2161 [place] [address]DrKianna Tripathi MONO # 0.5 103/ul Normal 0.3-0.8 [facility] Comment on above: Performed By: #### C BC ####[facility] Tfepfmqtzr0723 [place] [address]DrKianna Tripathi Monocytes/100 WBC (Bld) 6.0 % Normal 1.7-12.0 [facility] Comment on above: Performed By: #### C BC ####[facility] Ckekcftspp8[address] [place], [place] [address]DrKianna Tripathi NEUT # 5.0 103/ul Normal 1.4-6.5 [facility] Comment on above: Performed By: #### C BC ####[facility] Lyekfhskki[address] [place], [place] [address]DrKianna Tripathi Neutrophils/100 WBC (Bld) 65.7 % Normal 43.0-75.0 [facility] Comment on above: Performed By: #### C BC ####[facility] Owxwonptvp030[address] [place], [place] [address]DrKianna Tripathi Platelet mean volume (Bld) [Entitic vol] 9.5 fL Normal 9.5-13.5 [facility] Comment on above: Performed By: #### C BC ####[facility] Eqsghnenlf6026[address] [place], [place] [address]Dr. Airam Tripathi PLT 307 103/ul Normal 150-450 [facility] Comment on above: Performed By: #### C BC ####[facility] Iisaowtmwy805[address] [place], [place] [address]DrKianna Tripathi RBC 3.61 106/ul Critically low 4.20-5.40 [facility] Comment on above: Performed By: #### C BC ####[facility] Hmvrxzlrcr335[address] [place], [place] [address]DrKianna Tripathi WBC 7.5 103/ul Normal 4.0-11.0 [facility] Comment on above: Performed By: #### C BC ####[facility] [address]xrrcmcgv[address] [place] [address]DrKianna Tripathi PROF 14(COMP METB)on 023 Albumin [Mass/Vol] 3.5 g/dL Normal 3.4-5.0 [facility] Comment on above: Performed By: #### C MP ####[facility] Pzdsnwclkk69[address] [place] [address]DrKianna Tripathi Albumin/Globulin [Mass ratio] 1.1 {ratio} Normal [facility] Comment on above: Performed By: #### C MP ####[facility] Jzotmlwjrb16[address] [place] [address]DrKianna Tripathi ALP [Catalytic activity/Vol] 126 U/L Critically high 46-116 [facility] Comment on above: Performed By: #### C MP ####[facility] Uwwvulhtva588[address] [place], [place] [address]Dr. Airam Tripathi ALT [Catalytic activity/Vol] 18 U/L Normal 14-59 [facility] Comment on above: Performed By: #### C MP ####[facility] Exifvaotha2704 [place] [address]DrKianna Tripathi Anion gap [Moles/Vol] 11.1 mmol/L Normal Th [facility] Comment on above: Performed By: #### C MP ####[facility] Bnywcnwxub2927 [place] [address]DrKianna Tripathi AST [Catalytic activity/Vol] 26 U/L Normal 15-37 [facility] Comment on above: Performed By: #### C MP ####[facility] Mbgdvejprs9402 [place] [address]DrKianna Tripathi Bilirubin [Mass/Vol] 0.3 mg/dL Normal 0.2-1.0 [facility] Comment on above: Performed By: #### C MP ####[facility] Xgnvvvgply0716 [place] [address]DrKianna Tripathi Calcium [Mass/Vol] 8.5 mg/dL Normal 8.5-10.1 [facility] Comment on above: Performed By: #### C MP ####[facility] Jiriyojnpo1756 [place] [address]Dr. Airam Tripathi Chloride [Moles/Vol] 98 mmol/L Normal 98-107 [facility] Comment on above: Performed By: #### C MP ####[facility] Uxbqzdeewe6724 [place] [id number]. Airam Tripathi CO2 [Moles/Vol] 23.9 mmol/L Normal 21.0-32.0 [facility] Comment on above: Performed By: #### C MP ####[facility] Wnmersrjzw4759 [place] [address]Dr. Airam Deuce Creatinine [Mass/Vol] 1.40 mg/dL Critically high 0.55-1.02 [facility] Comment on above: Performed By: #### C MP ####[facility] Hggaouoqpg088[address] [place], [place] [address]Dr. Airam Deuce EGFR-AF BAR[place]IAN 46 mL/min/1.73m2 Critically low >=60 [facility] Comment on above: Performed By: #### C MP ####[facility] Iutmbbuafg1050[address] [place], [place] [address]Dr. Airam Deuce EGFR-NON AF BAR[place]IAN 38 mL/min/1.73m2 Critically low >=60 [facility] Comment on above: Performed By: #### C MP ####[facility] Xzuggxvlnv2599 [place] [address]Dr. Airam Deuce Globulin (S) [Mass/Vol] 3.3 g/dL Normal [facility] Comment on above: Performed By: #### C MP ####[facility] Ppgwtswmej1830 [place] [id number]. Airam Deuce Glucose [Mass/Vol] 72 mg/dL Critically low 74-106 Th [facility] Comment on above: Performed By: #### C MP ####[facility] Pxfsewywbg3250 [place] [id number]. Airam Tripathi Potassium [Moles/Vol] 5.0 mmol/L Normal 3.5-5.1 [facility] Comment on above: Performed By: #### C MP ####[facility] Mxpxvbmazo170[address] [place], [place] [address]Dr. Airam Tripathi Protein [Mass/Vol] 6.8 g/dL Normal 6.4-8.2 [facility] Comment on above: Performed By: #### C MP ####[facility] Frgmhrwtbg365[address] [place], [place] [address]Dr. Airam Tripathi Sodium [Moles/Vol] 128 mmol/L Critically low 136-145 Th [facility] Comment on above: Performed By: #### C MP ####[facility] Kwdiubuqhx265[address] [place], [place] [address]Dr. Airam Tripathi Urea nitrogen [Mass/Vol] 27.0 mg/dL Critically high 7.0-18.0 [facility] Comment on above: Performed By: #### C MP ####[facility] Ausjlegkag0723[address] [place], [place] [address]Dr. Airam Tripathi Urea nitrogen/Creatinine [Mass ratio] 19.3 mg/mg Normal [facility] Comment on above: Performed By: #### C MP ####[facility] Plnhdlacah424398 [address] [place], [place] [address]Dr. Airam Tripathi OSMOLALITYon 09-10-2022 Osmolality [Osmolality] 275 mosm/kg Normal 275-295 [facility] Comment on above: Performed By: #### O SMO ####[facility] Sgrfeegdfc4845[address] [place], [place] [address]Dr. Airam Tripathi CBC AUTO DIFFon 09-08-2022 BASO # 0.0 103/ul Normal 0.0-0.1 [facility] Comment on above: Performed By: #### C BC ####[facility] Zksjsxdbzh948198 [address] [place], [place] [address]Dr. Airam Tripathi Basophils/100 WBC (Bld) 0.5 % Normal 0.2-2.0 [facility] Comment on above: Performed By: #### C BC ####[facility] Amgnjmqxjt750[address] [place], [place] [address]Dr. Airam Tripathi EO # 0.1 103/ul Normal 0.0-0.7 [facility] Comment on above: Performed By: #### C BC ####[facility] Takzugkmug08[address] [place] [address]Dr. Airam Tripathi Eosinophils/100 WBC (Bld) 1.7 % Normal 0.9-7.0 [facility] Comment on above: Performed By: #### C BC ####[facility] Wmvbbmcunf375398 [address] [place], [place] [address]Dr. Airam Tripathi Erythrocyte distribution width (RBC) [Ratio] 14.7 % Normal 11.0-15.0 [facility] Comment on above: Performed By: #### C BC ####[facility] Doskapjhtv973698 [address] [place], [place] [address]Dr. Airam Tripathi Hematocrit (Bld) [Volume fraction] 30.3 % Critically low 36.0-48.0 [facility] Comment on above: Performed By: #### C BC ####[facility] Zjwbxhnypz862[address] [place], [place] [address]Dr. Airam Tripathi Hemoglobin (Bld) [Mass/Vol] 9.3 g/dL Critically low 12.0-16.0 [facility] Comment on above: Performed By: #### C BC ####[facility] Ctqhlgkpro954498 [address] [place], [place] [address]Dr. Airam Deuce IG # 0.03 10e3/ul Normal 0.00-0.03 [facility] Comment on above: Performed By: #### C BC ####[facility] Jtodkgvnzw571298 [address] [place], [place] [address]Dr. Airam Deuce IG % 0.5 % Normal 0.0-0.5 [facility] Comment on above: Performed By: #### C BC ####[facility] Umimlsccqx470[address] [place], [place] [address]Dr. Airam Tripathi LYMPH # 0.9 103/ul Critically low 1.2-3.8 [facility] Comment on above: Performed By: #### C BC ####[facility] Dqivdmzepf534[address] [place], [place] [address]DrKianna Tripathi Lymphocytes/100 WBC (Bld) 13.6 % Critically low 20.5-60.0 [facility] Comment on above: Performed By: #### C BC ####[facility] Nwuwrnpxhn2251 [place] [address]DrKianna Tripathi MANUAL DIFF REQ NO Normal [facility] Comment on above: Performed By: #### C BC ####[facility] Wgyuhixldn9885 [place] [address]DrKianna Tripathi MCH (RBC) [Entitic mass] 27.4 pg Normal 26.7-34.0 [facility] Comment on above: Performed By: #### C BC ####[facility] Tryfdmreve229498 [address] [place], [place] [address]DrKianna Tripathi MCHC (RBC) [Mass/Vol] 30.7 g/dL Normal 29.9-35.2 [facility] Comment on above: Performed By: #### C BC ####[facility] Apfjblnuse389[address] [place], [place] [address]DrKianna Tripathi MCV (RBC) [Entitic vol] 89.4 fL Normal 81.0-99.0 [facility] Comment on above: Performed By: #### C BC ####[facility] Ohwfdljwjk518[address] [place], [place] [address]DrKianna Tripathi MONO # 0.5 103/ul Normal 0.3-0.8 [facility] Comment on above: Performed By: #### C BC ####[facility] Ayusrqllfn405298 [address] [place], [place] [address]DrKianna Tripathi Monocytes/100 WBC (Bld) 8.0 % Normal 1.7-12.0 [facility] Comment on above: Performed By: #### C BC ####[facility] Cfbowtbcjw589098 [address] [place], [place] [address]DrKianna Tripathi NEUT # 5.0 103/ul Normal 1.4-6.5 [facility] Comment on above: Performed By: #### C BC ####[facility] Hbyqzehrzg800[address] [place], [place] [address]DrKianna Tripathi Neutrophils/100 WBC (Bld) 75.7 % Critically high 43.0-75.0 [facility] Comment on above: Performed By: #### C BC ####[facility] Xryrrrzbye5639 [place] [address]Dr. Airam Tripathi Platelet mean volume (Bld) [Entitic vol] 10.4 fL Normal 9.5-13.5 [facility] Comment on above: Performed By: #### C BC ####[facility] Gngceopugu0307 [place] [address]Dr. Airam Tripathi PLT 315 103/ul Normal 150-450 [facility] Comment on above: Performed By: #### C BC ####[facility] Dwtcvkkpap831698 [address] [place], [place] [address]Dr. Airam Tripathi RBC 3.39 106/ul Critically low 4.20-5.40 [facility] Comment on above: Performed By: #### C BC ####[facility] Yqrzgmcswz237698 [address] [place], [place] [address]DrKianna Tripathi WBC 6.5 103/ul Normal 4.0-11.0 [facility] Comment on above: Performed By: #### C BC ####[facility] Uhxugnrsxx4977[address] [place], [place] [address]DrKianna Tripathi PROF 14(COMP METB)on 023 Albumin [Mass/Vol] 3.1 g/dL Critically low 3.4-5.0 [facility] Comment on above: Performed By: #### C MP ####[facility] Vjfzliggas345[address] [place], [place] [address]DrKianna Tripathi Albumin/Globulin [Mass ratio] 1.0 {ratio} Normal [facility] Comment on above: Performed By: #### C MP ####[facility] Zhfaqbaogo636[address] [place], [place] [address]DrKianna Tripathi ALP [Catalytic activity/Vol] 126 U/L Critically high 46-116 [facility] Comment on above: Performed By: #### C MP ####[facility] Obnjmfjvbf3987[address] [place], [place] [address]DrKianna Tripathi ALT [Catalytic activity/Vol] 18 U/L Normal 14-59 [facility] Comment on above: Performed By: #### C MP ####[facility] Fqmhdpmgiq6307 [place] [id number]. Airam Deuce Anion gap [Moles/Vol] 11.4 mmol/L Normal Th e [facility] Comment on above: Performed By: #### C MP ####[facility] Iqwpfivqiq4622 [place] [phone]. Airam Deuce AST [Catalytic activity/Vol] 25 U/L Normal 15-37 [facility] Comment on above: Performed By: #### C MP ####[facility] Sewtaamjqe762398 [address] [place], [place] [address]Dr. Airam Tripathi Bilirubin [Mass/Vol] 0.3 mg/dL Normal 0.2-1.0 [facility] Comment on above: Performed By: #### C MP ####[facility] Ktxuxrkrkw723[address] [place], [place] [address]Dr. Airam Tripathi Calcium [Mass/Vol] 8.6 mg/dL Normal 8.5-10.1 [facility] Comment on above: Performed By: #### C MP ####[facility] Xjxpzagerk832[address] [place], [place] [address]Dr. Airam Tripathi Chloride [Moles/Vol] 97 mmol/L Critically low 98-107 [facility] Comment on above: Performed By: #### C MP ####[facility] Mdeexyzptw598998 [address] [place], [place] [address]Dr. Airam Tripathi CO2 [Moles/Vol] 26.1 mmol/L Normal 21.0-32.0 [facility] Comment on above: Performed By: #### C MP ####[facility] Vxfcdjhsvm732198 [address] [place], [place] [address]Dr. Airam Tripathi Creatinine [Mass/Vol] 1.07 mg/dL Critically high 0.55-1.02 [facility] Comment on above: Performed By: #### C MP ####[facility] Hsjlzkqifk409498 [address] [place], [place] [address]Dr. Airam Tripathi EGFR-AF BARBADIAN >60 Normal >=60 [facility] Comment on above: Performed By: #### C MP ####[facility] Eeudiwfprz7641 [place] [address]Dr. Airam Tripathi EGFR-NON AF [place] 52 mL/min/1.73m2 Critically low >=60 [facility] Comment on above: Performed By: #### C MP ####[facility] Epktkbhbtm8132 [place] [address]Dr. Airam Tripathi Globulin (S) [Mass/Vol] 3.2 g/dL Normal [facility] Comment on above: Performed By: #### C MP ####[facility] Dshadrdgml165598 [address] [place], [place] [address]Dr. Airam Tripathi Glucose [Mass/Vol] 83 mg/dL Normal 74-106 [facility] Comment on above: Performed By: #### C MP ####[facility] Ryccfkpaya8699[address] [place], [place] [address]Dr. Airam Tripathi Potassium [Moles/Vol] 5.5 mmol/L Critically high 3.5-5.1 [facility] Comment on above: Performed By: #### C MP ####[facility] Bqweeehqmq930[address] [place], [place] [address]Dr. Airam Tripathi Protein [Mass/Vol] 6.3 g/dL Critically low 6.4-8.2 Th [facility] Comment on above: Performed By: #### C MP ####[facility] Ppiqivihpk533598 [address] [place], [place] [address]Dr. Airam Tripathi Sodium [Moles/Vol] 129 mmol/L Critically low 136-145 Th [facility] Comment on above: Performed By: #### C MP ####[facility] Aiqddpcapd077898 [address] [place], [place] [address]Dr. Airam Tripathi Urea nitrogen [Mass/Vol] 37.0 mg/dL Critically high 7.0-18.0 [facility] Comment on above: Performed By: #### C MP ####[facility] Qbluqietlk983898 [address] [place], [place] [address]Dr. Airam Tripathi Urea nitrogen/Creatinine [Mass ratio] 34.6 mg/mg Normal [facility] Comment on above: Performed By: #### C MP ####[facility] Iservabben909298 [address] [place], [place] [address]Dr. Airam Tripathi OSMOLALITYon 09-02-2022 Osmolality [Osmolality] 279 mosm/kg Normal 275-295 [facility] Comment on above: Performed By: #### O SMO ####[facility] Exmldvjarw443[address] [place], [place] [address]Dr. Airam Tripathi CBC AUTO DIFFon 08-31-2022 BASO # 0.0 103/ul Normal 0.0-0.1 [facility] Comment on above: Performed By: #### C BC ####[facility] Ulujvmcgdh840[address] [place], [place] [address]DrKianna Tripathi Basophils/100 WBC (Bld) 0.4 % Normal 0.2-2.0 [facility] Comment on above: Performed By: #### C BC ####[facility] Lydxxklqrk4518[address] [place], [place] [address]DrKianna Tripathi EO # 0.2 103/ul Normal 0.0-0.7 [facility] Comment on above: Performed By: #### C BC ####[facility] Imgmdkcpod2485[address] [place], [place] [address]DrKianna Tripathi Eosinophils/100 WBC (Bld) 3.2 % Normal 0.9-7.0 [facility] Comment on above: Performed By: #### C BC ####[facility] Tyniswgyfe0717[address] [place], [place] [address]DrKianna Tripathi Erythrocyte distribution width (RBC) [Ratio] 14.4 % Normal 11.0-15.0 [facility] Comment on above: Performed By: #### C BC ####[facility] Bsjkpvyeag100[address] [place], [place] [address]DrKianna Tripathi Hematocrit (Bld) [Volume fraction] 27.8 % Critically low 36.0-48.0 [facility] Comment on above: Performed By: #### C BC ####[facility] Psfkcamvga6785[address] [place], [place] [address]DrKianna Tripathi Hemoglobin (Bld) [Mass/Vol] 8.7 g/dL Critically low 12.0-16.0 [facility] Comment on above: Performed By: #### C BC ####[facility] Jliucrekbn5525 [place] [address]DrKianna Tripathi IG # 0.05 10e3/ul Critically high 0.00-0.03 [facility] Comment on above: Performed By: #### C BC ####[facility] Wwvjkgsmoe205498 [address] [place], [place] [address]Dr. Airam Tripathi IG % 0.7 % Critically high 0.0-0.5 [facility] Comment on above: Performed By: #### C BC ####[facility] Sbzclxtvmw608398 [address] [place], [place] [address]DrKianna Tripathi LYMPH # 1.7 103/ul Normal 1.2-3.8 [facility] Comment on above: Performed By: #### C BC ####[facility] Xdsnigidhm987[address] [place], [place] [address]DrKianna Tripathi Lymphocytes/100 WBC (Bld) 23.6 % Normal 20.5-60.0 [facility] Comment on above: Performed By: #### C BC ####[facility] Vhltzecfse713[address] [place], [place] [address]DrKianna Tripathi MANUAL DIFF REQ NO Normal [facility] Comment on above: Performed By: #### C BC ####[facility] Ameyqkexod507398 [address] [place], [place] [address]DrKianna Tripathi MCH (RBC) [Entitic mass] 27.8 pg Normal 26.7-34.0 [facility] Comment on above: Performed By: #### C BC ####[facility] Qroeeoompb0745[address] [place], [place] [address]DrKianna Tripathi MCHC (RBC) [Mass/Vol] 31.3 g/dL Normal 29.9-35.2 [facility] Comment on above: Performed By: #### C BC ####[facility] Pkbzleewws2437[address] [place], [place] [address]DrKianna Tripathi MCV (RBC) [Entitic vol] 88.8 fL Normal 81.0-99.0 [facility] Comment on above: Performed By: #### C BC ####[facility] Tgdbktcgog6437 [place] [address] Airam Tripathi MONO # 0.5 103/ul Normal 0.3-0.8 [facility] Comment on above: Performed By: #### C BC ####[facility] Npiquhbqai879[address] [place], [place] [address]DrKianna Airam Tripathi Monocytes/100 WBC (Bld) 6.9 % Normal 1.7-12.0 [facility] Comment on above: Performed By: #### C BC ####[facility] Inngpfblwe745[address] [place], [place] [address]DrKianna Airam Tripathi NEUT # 4.7 103/ul Normal 1.4-6.5 [facility] Comment on above: Performed By: #### C BC ####[facility] Joqtkvhytz904[address] [place], [place] [address]DrKianna Airam Tripathi Neutrophils/100 WBC (Bld) 65.2 % Normal 43.0-75.0 [facility] Comment on above: Performed By: #### C BC ####[facility] Qcrzllymlc484798 [address] [place], [place] [address]DrKianna Airam Tripathi Platelet mean volume (Bld) [Entitic vol] 9.8 fL Normal 9.5-13.5 [facility] Comment on above: Performed By: #### C BC ####[facility] Upofaxgwuk884[address] [place], [place] [address]DrKianna Airam Tripathi PLT 225 103/ul Normal 150-450 [facility] Comment on above: Performed By: #### C BC ####[facility] Hplpdkhkin9[address] [place], [place] [address]DrKianna Airam Deuce RBC 3.13 106/ul Critically low 4.20-5.40 [facility] Comment on above: Performed By: #### C BC ####[facility] Zyassdhryt6035[address] [place], [place] [address]DrKianna Tripathi WBC 7.3 103/ul Normal 4.0-11.0 [facility] Comment on above: Performed By: #### C BC ####[facility] Yxzsjvxsfv6862 [place] [address]Dr. Airam Tripathi PROF 14(COMP METB)on 023 Albumin [Mass/Vol] 3.0 g/dL Critically low 3.4-5.0 Th e [facility] Comment on above: Performed By: #### C MP ####[facility] Lxntcoienc770398 [address] [place], [place] [address]Dr. Airam Tripathi Albumin/Globulin [Mass ratio] 1.1 {ratio} Normal [facility] Comment on above: Performed By: #### C MP ####[facility] Vbnfefeswi3914[address] [place], [place] [address]Dr. Airam Tripathi ALP [Catalytic activity/Vol] 132 U/L Critically high 46-116 [facility] Comment on above: Performed By: #### C MP ####[facility] Bibyfglavf240398 [address] [place], [place] [address]Dr. Airam Tripathi ALT [Catalytic activity/Vol] 20 U/L Normal 14-59 [facility] Comment on above: Performed By: #### C MP ####[facility] Nsvycuowrg0216[address] [place], [place] [address]Dr. Airam Tripathi Anion gap [Moles/Vol] 9.5 mmol/L Normal [facility] Comment on above: Performed By: #### C MP ####[facility] Ckfpppgajx5980[address] [place], [place] [address]Dr. Airam Tripathi AST [Catalytic activity/Vol] 25 U/L Normal 15-37 [facility] Comment on above: Performed By: #### C MP ####[facility] Qtxmohgdpy335[address] [place], [place] [address]Dr. Airam Tripathi Bilirubin [Mass/Vol] 0.2 mg/dL Normal 0.2-1.0 [facility] Comment on above: Performed By: #### C MP ####[facility] Sgouasvjmo863[address] [place], [place] [address]Dr. Airam Tripathi Calcium [Mass/Vol] 7.9 mg/dL Critically low 8.5-10.1 Th [facility] Comment on above: Performed By: #### C MP ####[facility] Jxobuwmhrb5654 [place] [address]Dr. Airam Tripathi Chloride [Moles/Vol] 97 mmol/L Critically low 98-107 [facility] Comment on above: Performed By: #### C MP ####[facility] Ykhqqofupl4968[address] [place], [place] [address]Dr. Airam Tripathi CO2 [Moles/Vol] 27.3 mmol/L Normal 21.0-32.0 [facility] Comment on above: Performed By: #### C MP ####[facility] Oqdkkajxfo338[address] [place], [place] [address]Dr. Airam Tripathi Creatinine [Mass/Vol] 1.58 mg/dL Critically high 0.55-1.02 [facility] Comment on above: Performed By: #### C MP ####[facility] Gihotjdjiu614[address] [place], [place] [address]Dr. Airam Tripathi EGFR-AF [place]IAN 40 mL/min/1.73m2 Critically low >=60 [facility] Comment on above: Performed By: #### C MP ####[facility] Pjkycbrrre48[address] [place], [place] [address]Dr. Airam Tripathi EGFR-NON AF [place] 33 mL/min/1.73m2 Critically low >=60 [facility] Comment on above: Performed By: #### C MP ####[facility] Cgqzrduavl5940[address] [place], [place] [address]Dr. Airam Tripathi Globulin (S) [Mass/Vol] 2.8 g/dL Normal [facility] Comment on above: Performed By: #### C MP ####[facility] Ivgpnvfbuz5318[address] [place], [place] [address]Dr. Airam Tripathi Glucose [Mass/Vol] 111 mg/dL Critically high 74-106 T [facility] Comment on above: Performed By: #### C MP ####[facility] Ndumapdstf9990[address] [place], [place] [address]Dr. Airam Tripathi Potassium [Moles/Vol] 4.8 mmol/L Normal 3.5-5.1 [facility] Comment on above: Performed By: #### C MP ####[facility] Cmmpxcnwbf17[address] [place], [place] [address]Dr. Airam Tripathi Protein [Mass/Vol] 5.8 g/dL Critically low 6.4-8.2 Th [facility] Comment on above: Performed By: #### C MP ####[facility] Jydjfjsmqn[address] [place], [place] [address]Dr. Airam Deuce Sodium [Moles/Vol] 129 mmol/L Critically low 136-145 Th [facility] Comment on above: Performed By: #### C MP ####[facility] Jiynlpywoi74[address] [place], [place] [address]Dr. Selenaneil Deuce Urea nitrogen [Mass/Vol] 44.0 mg/dL Critically high 7.0-18.0 [facility] Comment on above: Performed By: #### C MP ####[facility] Gnsmbemdto224[address] [place], [place] [address]Dr. Selenaneil Tripathi Urea nitrogen/Creatinine [Mass ratio] 27.8 mg/mg Normal [facility] Comment on above: Performed By: #### C MP ####[facility] Aqynwnxmeo165[address] [place], [place] [address]DrKianna Airam Deuce OSMOLALITYon 08-28-2022 Osmolality [Osmolality] 288 mosm/kg Normal 275-295 [facility] Comment on above: Performed By: #### O SMO ####[facility] Njktwvjylp387[address] [place], [place] [address]Dr. Airam Deuce CBC AUTO DIFFon 08-25-2022 BASO # 0.0 103/ul Normal 0.0-0.1 [facility] Comment on above: Performed By: #### C BC ####[facility] Swjaeunfnh083[address] [place], [place] [address]Dr. Airam Deuce Basophils/100 WBC (Bld) 0.5 % Normal 0.2-2.0 [facility] Comment on above: Performed By: #### C BC ####[facility] Ykwprvxlrl635[address] [place], [place] [address]Dr. Airam Tripathi EO # 0.4 103/ul Normal 0.0-0.7 [facility] Comment on above: Performed By: #### C BC ####[facility] Z[address]ufvxxom[address] [place] [address]Dr. Airam Tripathi Eosinophils/100 WBC (Bld) 4.8 % Normal 0.9-7.0 [facility] Comment on above: Performed By: #### C BC ####[facility] Bvwvdbgygg7478 [place] [address]Dr. Airam Tripathi Erythrocyte distribution width (RBC) [Ratio] 14.2 % Normal 11.0-15.0 [facility] Comment on above: Performed By: #### C BC ####[facility] Pzxfgpzbaf4793 [place] [address]Dr. Airam Tripathi Hematocrit (Bld) [Volume fraction] 31.1 % Critically low 36.0-48.0 [facility] Comment on above: Performed By: #### C BC ####[facility] Zlsuqhybxf1883 [place] [address]Dr. Airam Tripathi Hemoglobin (Bld) [Mass/Vol] 9.7 g/dL Critically low 12.0-16.0 [facility] Comment on above: Performed By: #### C BC ####[facility] Zhrcirvmvo0474 [place] [address]Dr. Airam Tripathi IG # 0.05 10e3/ul Critically high 0.00-0.03 [facility] Comment on above: Performed By: #### C BC ####[facility] Ofaihtzrqw2050 [place] [address]Dr. Airam Tripathi IG % 0.6 % Critically high 0.0-0.5 [facility] Comment on above: Performed By: #### C BC ####[facility] Blmhwwedbg7293 [place] [address]Dr. Airam Tripathi LYMPH # 1.7 103/ul Normal 1.2-3.8 [facility] Comment on above: Performed By: #### C BC ####[facility] Aguuotqozz6153 [place] [address]Dr. Airam Deuce Lymphocytes/100 WBC (Bld) 19.6 % Critically low 20.5-60.0 [facility] Comment on above: Performed By: #### C BC ####[facility] Ygzpxeosif2484 [place] [address]Dr. Selenaneil Tripathi MANUAL DIFF REQ NO Normal [facility] Comment on above: Performed By: #### C BC ####[facility] Awigibolqs2417 [place] [address]Dr. Airam Deuce MCH (RBC) [Entitic mass] 28.2 pg Normal 26.7-34.0 [facility] Comment on above: Performed By: #### C BC ####[facility] Jajuakslaw534[address] [place], [place] [address]Dr. Airam Deuce MCHC (RBC) [Mass/Vol] 31.2 g/dL Normal 29.9-35.2 [facility] Comment on above: Performed By: #### C BC ####[facility] Yatyxecpbr820[address] [place], [place] [address]Dr. Selenaneil Tripathi MCV (RBC) [Entitic vol] 90.4 fL Normal 81.0-99.0 [facility] Comment on above: Performed By: #### C BC ####[facility] Dkvuhbatko1901[address] [place], [place] [address]Dr. Airam Triapthi MONO # 0.6 103/ul Normal 0.3-0.8 [facility] Comment on above: Performed By: #### C BC ####[facility] Mdnamfebfk324398 [address] [place], [place] [address]Dr. Selenaneil Tripathi Monocytes/100 WBC (Bld) 7.4 % Normal 1.7-12.0 [facility] Comment on above: Performed By: #### C BC ####[facility] Ooqbqrkqip99[address] [place], [place] [address]Dr. Airam Tripathi NEUT # 5.8 103/ul Normal 1.4-6.5 [facility] Comment on above: Performed By: #### C BC ####[facility] Utffukanqg9270 [place] [address]Dr. Airam Tripathi Neutrophils/100 WBC (Bld) 67.1 % Normal 43.0-75.0 [facility] Comment on above: Performed By: #### C BC ####[facility] Ydvzzeptwx4830 [place] [address]Dr. Airam Tripathi Platelet mean volume (Bld) [Entitic vol] 9.9 fL Normal 9.5-13.5 [facility] Comment on above: Performed By: #### C BC ####[facility] Qegmfyvzlo1988[address] [place], [place] [address]Dr. Airam Tripathi PLT 320 103/ul Normal 150-450 [facility] Comment on above: Performed By: #### C BC ####[facility] Neqvciyosj1325[address] [place], [place] [address]Dr. Airam Tripathi RBC 3.44 106/ul Critically low 4.20-5.40 [facility] Comment on above: Performed By: #### C BC ####[facility] Ilyqdzpfwi017[address] [place], [place] [address]Dr. Selenaneil Deuce WBC 8.6 103/ul Normal 4.0-11.0 [facility] Comment on above: Performed By: #### C BC ####[facility] Idrxvasqkf369198 [address] [place], [place] [address]Dr. Airam Tripathi PROF 14(COMP METB)on 023 Albumin [Mass/Vol] 3.4 g/dL Normal 3.4-5.0 [facility] Comment on above: Performed By: #### C MP ####[facility] Bvuutjremd0410[address] [place], [place] [address]Dr. Airam Tripathi Albumin/Globulin [Mass ratio] 1.1 {ratio} Normal [facility] Comment on above: Performed By: #### C MP ####[facility] Idryzudowa1328[address] [place], [place] [address]Dr. Selenaneil Deuce ALP [Catalytic activity/Vol] 170 U/L Critically high 46-116 [facility] Comment on above: Performed By: #### C MP ####[facility] Fhznxembvo6104 [place] [address]Dr. Airam Tripathi ALT [Catalytic activity/Vol] 22 U/L Normal 14-59 [facility] Comment on above: Performed By: #### C MP ####[facility] Kjcthggkfq0530 [place] [address]Dr. Airam Tripathi Anion gap [Moles/Vol] 14.4 mmol/L Normal Th [facility] Comment on above: Performed By: #### C MP ####[facility] Wohgfacpxn5745[address] [place], [place] [address]Dr. Airam Tripathi AST [Catalytic activity/Vol] 25 U/L Normal 15-37 [facility] Comment on above: Performed By: #### C MP ####[facility] Ksrowntbah6945[address] [place], [place] [address]Dr. Airam Tripathi Bilirubin [Mass/Vol] 0.3 mg/dL Normal 0.2-1.0 [facility] Comment on above: Performed By: #### C MP ####[facility] Vrpeusghwg1248[address] [place], [place] [address]Dr. Airam Tripathi Calcium [Mass/Vol] 8.2 mg/dL Critically low 8.5-10.1 [facility] Comment on above: Performed By: #### C MP ####[facility] Jgupzujdhi132[address] [place], [place] [address]Dr. Airam Tripathi Chloride [Moles/Vol] 98 mmol/L Normal 98-107 [facility] Comment on above: Performed By: #### C MP ####[facility] Yfnjugyqvc8827[address] [place], [place] [address]Dr. Airam Tripathi CO2 [Moles/Vol] 27.8 mmol/L Normal 21.0-32.0 [facility] Comment on above: Performed By: #### C MP ####[facility] Tktdvjuqwy9417[address] [place], [place] [address]Dr. Airam Tripathi Creatinine [Mass/Vol] 1.82 mg/dL Critically high 0.55-1.02 [facility] Comment on above: Performed By: #### C MP ####[facility] Zrwpdsjzdu890[address] [place], [place] [address]Dr. Airam Deuce EGFR-AF BARBADIAN 34 mL/min/1.73m2 Critically low >=60 [facility] Comment on above: Performed By: #### C MP ####[facility] Ldxgoxsock1175 [place] [address]Dr. Airam Deuce EGFR-NON AF BARBADIAN 28 mL/min/1.73m2 Critically low >=60 [facility] Comment on above: Performed By: #### C MP ####[facility] Lwfsaluisa5094 [place] [address]Dr. Airam Deuce Globulin (S) [Mass/Vol] 3.2 g/dL Normal [facility] Comment on above: Performed By: #### C MP ####[facility] Nbtlxdquiu1934 [place] [address]Dr. Airam Tripathi Glucose [Mass/Vol] 78 mg/dL Normal 74-106 [facility] Comment on above: Performed By: #### C MP ####[facility] Xwxpgtxvic2310 [place] [address]Dr. Selenaneil Deuce Potassium [Moles/Vol] 5.2 mmol/L Critically high 3.5-5.1 [facility] Comment on above: Performed By: #### C MP ####[facility] Ptpyabofdm240[address] [place], [place] [address]Dr. Airam Tripathi Protein [Mass/Vol] 6.6 g/dL Normal 6.4-8.2 [facility] Comment on above: Performed By: #### C MP ####[facility] Wdljsikexb0848 [place] [address]Dr. Airam Tripathi Sodium [Moles/Vol] 135 mmol/L Critically low 136-145 Th [facility] Comment on above: Performed By: #### C MP ####[facility] Sszrhwlnok3483 [place] [address]Dr. Selenaneil Deuce Urea nitrogen [Mass/Vol] 51.0 mg/dL Critically high 7.0-18.0 [facility] Comment on above: Performed By: #### C MP ####[facility] Hvzffdmvmq575[address] [place], [place] [address]Dr. Airam Tripathi Urea nitrogen/Creatinine [Mass ratio] 28.0 mg/mg Normal [facility] Comment on above: Performed By: #### C MP ####[facility] Vqjtirruxl710[address] [place], [place] [address]Dr. Airam Tripathi OSMOLALITYon 08-18-2022 Osmolality [Osmolality] 280 mosm/kg Normal 275-295 [facility] Comment on above: Performed By: #### O SMO ####[facility] Kcaxdojeha8430[address] [place], [place] [address]Dr. Airam Tripathi CBC AUTO DIFFon 08-16-2022 BASO # 0.0 103/ul Normal 0.0-0.1 [facility] Comment on above: Performed By: #### C BC ####[facility] Vzlmwlidrs[address] [place], [place] [address]Dr. Airam Deuce Basophils/100 WBC (Bld) 0.2 % Normal 0.2-2.0 [facility] Comment on above: Performed By: #### C BC ####[facility] Tfiqmpfcfm214[address] [place], [place] [address]Dr. Airam Tripathi EO # 0.2 103/ul Normal 0.0-0.7 [facility] Comment on above: Performed By: #### C BC ####[facility] Rnxmblwuoo968[address] [place], [place] [address]Dr. Airam Tripathi Eosinophils/100 WBC (Bld) 2.4 % Normal 0.9-7.0 [facility] Comment on above: Performed By: #### C BC ####[facility] Boeaqixzds124[address] [place], [place] [address]Dr. Airam Tripathi Erythrocyte distribution width (RBC) [Ratio] 14.2 % Normal 11.0-15.0 [facility] Comment on above: Performed By: #### C BC ####[facility] Awjykerorb1415[address] [place], [place] [address]Dr. Airam Tripathi Hematocrit (Bld) [Volume fraction] 30.1 % Critically low 36.0-48.0 [facility] Comment on above: Performed By: #### C BC ####[facility] Ldsusochti1020 [place] [id number]. Airam Tripathi Hemoglobin (Bld) [Mass/Vol] 9.2 g/dL Critically low 12.0-16.0 [facility] Comment on above: Performed By: #### C BC ####[facility] Rlqkmqzkbi2496 [place] [address]Dr. Airam Tripathi IG # 0.04 10e3/ul Critically high 0.00-0.03 [facility] Comment on above: Performed By: #### C BC ####[facility] Rtgcqkovmf7324 [place] [address]Dr. Airam Tripathi IG % 0.4 % Normal 0.0-0.5 [facility] Comment on above: Performed By: #### C BC ####[facility] Wovwclovgl1551 [place] [address]Dr. Airam Tripathi LYMPH # 0.9 103/ul Critically low 1.2-3.8 [facility] Comment on above: Performed By: #### C BC ####[facility] Fpkgnkjasy8776 [place] [address]Dr. Airam Tripathi Lymphocytes/100 WBC (Bld) 9.3 % Critically low 20.5-60.0 [facility] Comment on above: Performed By: #### C BC ####[facility] Guiqmpewxz6486 [place] [address]Dr. Airam Tripathi MANUAL DIFF REQ NO Normal [facility] Comment on above: Performed By: #### C BC ####[facility] Twstiuabzh9317[address] [place], [place] [address]Dr. Airam Tripathi MCH (RBC) [Entitic mass] 27.7 pg Normal 26.7-34.0 [facility] Comment on above: Performed By: #### C BC ####[facility] Musgxmebsy3534[address] [place], [place] [address]Dr. Airam Tripathi MCHC (RBC) [Mass/Vol] 30.6 g/dL Normal 29.9-35.2 [facility] Comment on above: Performed By: #### C BC ####[facility] Pwzhaqwbhv0006 [place] [id number]. Airam Tripathi MCV (RBC) [Entitic vol] 90.7 fL Normal 81.0-99.0 [facility] Comment on above: Performed By: #### C BC ####[facility] Zragftbxhd9258 [place] [id number]. Airam Tripathi MONO # 0.5 103/ul Normal 0.3-0.8 [facility] Comment on above: Performed By: #### C BC ####[facility] Yoaoxxkumx5108 [place] [id number]. Airam Tripathi Monocytes/100 WBC (Bld) 5.3 % Normal 1.7-12.0 [facility] Comment on above: Performed By: #### C BC ####[facility] Xmjztsnpte2712[address] [place], [place] [address]Dr. Airam Tripathi NEUT # 7.7 103/ul Critically high 1.4-6.5 [facility] Comment on above: Performed By: #### C BC ####[facility] Dfykjtekrw395[address] [place], [place] [address]Dr. Airam Tripathi Neutrophils/100 WBC (Bld) 82.4 % Critically high 43.0-75.0 [facility] Comment on above: Performed By: #### C BC ####[facility] Zmgxrkfxnd408[address] [place], [place] [address]Dr. Airam Tripathi Platelet mean volume (Bld) [Entitic vol] 9.8 fL Normal 9.5-13.5 [facility] Comment on above: Performed By: #### C BC ####[facility] Lcqlxgkwta830[address] [place], [place] [address]Dr. Airam Tripathi PLT 285 103/ul Normal 150-450 [facility] Comment on above: Performed By: #### C BC ####[facility] Joabzhpqln569[address] [place], [place] [address]Dr. Airam Tripathi RBC 3.32 106/ul Critically low 4.20-5.40 [facility] Comment on above: Performed By: #### C BC ####[facility] Qvbvcotywb1240 [place] [address]Dr. Airam Tripathi WBC 9.4 103/ul Normal 4.0-11.0 [facility] Comment on above: Performed By: #### C BC ####[facility] Awvyrqefzs0155 [place] [address]Dr. Airam Tripathi MRI WRIST RT WO CONon 2022 MRI WRIST RT WO CON Normal [facility] PROF 14(COMP METB)on 023 Albumin [Mass/Vol] 3.1 g/dL Critically low 3.4-5.0 [facility] Comment on above: Performed By: #### C MP ####[facility] Pvsiqzzlkm456[address] [place], [place] [address]Dr. Airam Tripathi Albumin/Globulin [Mass ratio] 0.9 {ratio} Normal [facility] Comment on above: Performed By: #### C MP ####[facility] Knjwrxqmxp5544[address] [place], [place] [address]Dr. Airam Tripathi ALP [Catalytic activity/Vol] 162 U/L Critically high 46-116 [facility] Comment on above: Performed By: #### C MP ####[facility] Dnioiyrmfx3399 [place] [address]Dr. Airam Tripathi ALT [Catalytic activity/Vol] 19 U/L Normal 14-59 [facility] Comment on above: Performed By: #### C MP ####[facility] Jypaeianmh0523 [place] [address]Dr. Airam Tripathi Anion gap [Moles/Vol] 13.0 mmol/L Normal [facility] Comment on above: Performed By: #### C MP ####[facility] Ytoqhpzjmj8810 [place] [address]Dr. Airam Tripathi AST [Catalytic activity/Vol] 21 U/L Normal 15-37 [facility] Comment on above: Performed By: #### C MP ####[facility] Sajzrugsae6099 [place] [address]Dr. Airam Tripathi Bilirubin [Mass/Vol] 0.3 mg/dL Normal 0.2-1.0 [facility] Comment on above: Performed By: #### C MP ####[facility] Apcgvawizu5175 [place] [address]Dr. Airam Tripathi Calcium [Mass/Vol] 8.4 mg/dL Critically low 8.5-10.1 [facility] Comment on above: Performed By: #### C MP ####[facility] Rxklracznh0593 [place] [address]Dr. Airam Tripathi Chloride [Moles/Vol] 103 mmol/L Normal 98-107 [facility] Comment on above: Performed By: #### C MP ####[facility] Mpudlrqwze0430 [place] [address]Dr. Airam Tripathi CO2 [Moles/Vol] 23.3 mmol/L Normal 21.0-32.0 [facility] Comment on above: Performed By: #### C MP ####[facility] Oesbzjsltm660[address] [place], [place] [address]Dr. Airam Tripathi Creatinine [Mass/Vol] 1.02 mg/dL Normal 0.55-1.02 [facility] Comment on above: Performed By: #### C MP ####[facility] Hubmqllkan564[address] [place], [place] [address]Dr. Airam Tripathi EGFR-AF BARBADIAN >60 Normal >=60 [facility] Comment on above: Performed By: #### C MP ####[facility] Iaztrgkqok9787 [place] [address]Dr. Airam Tripathi EGFR-NON AF [place]IAN 55 mL/min/1.73m2 Critically low >=60 [facility] Comment on above: Performed By: #### C MP ####[facility] Iihlyjodet5504 [place] [address]Dr. Airam Tripathi Globulin (S) [Mass/Vol] 3.4 g/dL Normal [facility] Comment on above: Performed By: #### C MP ####[facility] Megyweitit4805 [place] [address]Dr. Airam Tripathi Glucose [Mass/Vol] 88 mg/dL Normal 74-106 [facility] Comment on above: Performed By: #### C MP ####[facility] Tzsurimiko3808 [place] [id number]. Airam Tripathi Potassium [Moles/Vol] 4.3 mmol/L Normal 3.5-5.1 [facility] Comment on above: Performed By: #### C MP ####[facility] Pkodqrnjhd6086 [place] [address]Dr. Airam Tripathi Protein [Mass/Vol] 6.5 g/dL Normal 6.4-8.2 [facility] Comment on above: Performed By: #### C MP ####[facility] Iujtjfdzut438[address] [place], [place] [address]Dr. Airam Tripathi Sodium [Moles/Vol] 135 mmol/L Critically low 136-145 Th [facility] Comment on above: Performed By: #### C MP ####[facility] Cazlsrngjw222[address] [place], [place] [address]Dr. Airam Tripathi Urea nitrogen [Mass/Vol] 27.0 mg/dL Critically high 7.0-18.0 [facility] Comment on above: Performed By: #### C MP ####[facility] Qxrhttifkc4837[address] [place], [place] [address]Dr. Airam Tripathi Urea nitrogen/Creatinine [Mass ratio] 26.5 mg/mg Normal [facility] Comment on above: Performed By: #### C MP ####[facility] Ugxcvzqauw529[address] [place], [place] [address]Dr. Airam Tripathi CT HEAD WO CONon 08-06-2022 CT HEAD WO CON Normal [facility] CT LSPINE WO CONon 3 CT LSPINE WO CON Normal [facility] XR HAND RT MIN 3Von 08-06-19 23 XR HAND RT MIN 3V Normal [facility] XR KNEE LT 4V or >on 023 XR KNEE LT 4V or > Normal [facility] XR WRIST RT MIN 3 Von 2022 XR WRIST RT MIN 3 V Normal [facility] OSMOLALITYon 08-05-2022 Osmolality [Osmolality] 282 mosm/kg Normal 275-295 [facility] Comment on above: Performed By: #### O SMO ####[facility] Tkpyxmuioj6170 [place] [id number]. Airam Tripathi CBC AUTO DIFFon 08-03-2022 BASO # 0.0 103/ul Normal 0.0-0.1 [facility] Comment on above: Performed By: #### C BC ####[facility] Zabkpbesaz8302 [place] [phone]. Selenaneil Tripathi Basophils/100 WBC (Bld) 0.5 % Normal 0.2-2.0 [facility] Comment on above: Performed By: #### C BC ####[facility] Jfolprkcka869[address] [place], [place] [address]Dr. Airam Deuce EO # 0.5 103/ul Normal 0.0-0.7 [facility] Comment on above: Performed By: #### C BC ####[facility] Qznftyrrra803[address] [place], [place] [address]Dr. Selenaneil Tripathi Eosinophils/100 WBC (Bld) 5.2 % Normal 0.9-7.0 [facility] Comment on above: Performed By: #### C BC ####[facility] Zzejiqttup920[address] [place], [place] [address]Dr. Airam Tripathi Erythrocyte distribution width (RBC) [Ratio] 14.3 % Normal 11.0-15.0 [facility] Comment on above: Performed By: #### C BC ####[facility] Ufqcxoplaw508[address] [place], [place] [address]Dr. Airam Tripathi Hematocrit (Bld) [Volume fraction] 31.4 % Critically low 36.0-48.0 [facility] Comment on above: Performed By: #### C BC ####[facility] Ukzbiaaupx7499[address] [place], [place] [address]Dr. Airam Tripathi Hemoglobin (Bld) [Mass/Vol] 9.5 g/dL Critically low 12.0-16.0 [facility] Comment on above: Performed By: #### C BC ####[facility] Arnufyprbg688[address] [place], [place] [address]Dr. Airam Tripathi IG # 0.05 10e3/ul Critically high 0.00-0.03 [facility] Comment on above: Performed By: #### C BC ####[facility] Kvoekctvby8484 [place] [address]Dr. Airam Tripathi IG % 0.6 % Critically high 0.0-0.5 [facility] Comment on above: Performed By: #### C BC ####[facility] Qlvwjmcios4930 [place] [address]Dr. Airam Deuce LYMPH # 1.5 103/ul Normal 1.2-3.8 [facility] Comment on above: Performed By: #### C BC ####[facility] Moaxhepssx0067[address] [place], [place] [address]Dr. Selenaneil Tripathi Lymphocytes/100 WBC (Bld) 17.6 % Critically low 20.5-60.0 [facility] Comment on above: Performed By: #### C BC ####[facility] Vjvzbdnjpt[address] [place], [place] [address]Dr. Selenaneil Tripathi MANUAL DIFF REQ NO Normal [facility] Comment on above: Performed By: #### C BC ####[facility] Abljuptehl088[address] [place], [place] [address]Dr. Airam Deuce MCH (RBC) [Entitic mass] 29.0 pg Normal 26.7-34.0 [facility] Comment on above: Performed By: #### C BC ####[facility] Nmxfhboavr418[address] [place], [place] [address]Dr. Airam Tripathi MCHC (RBC) [Mass/Vol] 30.3 g/dL Normal 29.9-35.2 [facility] Comment on above: Performed By: #### C BC ####[facility] Pmgfufmehx50[address] [place], [place] [address]DrKianna Airam Deuce MCV (RBC) [Entitic vol] 95.7 fL Normal 81.0-99.0 [facility] Comment on above: Performed By: #### C BC ####[facility] Bflaitscts[address] [place], [place] [address]DrKianna Tripathi MONO # 0.7 103/ul Normal 0.3-0.8 [facility] Comment on above: Performed By: #### C BC ####[facility] Cahxxetgep2358 [place] [id number]. Airam Tripathi Monocytes/100 WBC (Bld) 8.5 % Normal 1.7-12.0 [facility] Comment on above: Performed By: #### C BC ####[facility] Qxtxdykjws1764 [place] [id number]. Airam Tripathi NEUT # 5.8 103/ul Normal 1.4-6.5 [facility] Comment on above: Performed By: #### C BC ####[facility] Fcxczizqao8722 [place] [phone]. Airam Tripathi Neutrophils/100 WBC (Bld) 67.6 % Normal 43.0-75.0 [facility] Comment on above: Performed By: #### C BC ####[facility] Jqppevgwtn4741 [place] [phone]. Airam Tripathi Platelet mean volume (Bld) [Entitic vol] 9.5 fL Normal 9.5-13.5 [facility] Comment on above: Performed By: #### C BC ####[facility] Bfrtnsrgws3598 [place] [phone]. Airam Tripathi PLT 292 103/ul Normal 150-450 [facility] Comment on above: Performed By: #### C BC ####[facility] Dqjcdqzufj5610 [place] [phone]. Airam Tripathi RBC 3.28 106/ul Critically low 4.20-5.40 [facility] Comment on above: Performed By: #### C BC ####[facility] Vwguykapww4179 [place] [phone]. Airam Tripathi WBC 8.6 103/ul Normal 4.0-11.0 [facility] Comment on above: Performed By: #### C BC ####[facility] Seohjtwcah7418 [place] [phone] Tripathi PROF 14(COMP METB)on 023 Albumin [Mass/Vol] 3.0 g/dL Critically low 3.4-5.0 [facility] Comment on above: Performed By: #### C MP ####[facility] Qpcmtshcqg3858 [place] [address]Dr. Airam Deuce Albumin/Globulin [Mass ratio] 0.9 {ratio} Normal [facility] Comment on above: Performed By: #### C MP ####[facility] Pelrohkicc8872 [place] [address]Dr. Airam Deuce ALP [Catalytic activity/Vol] 184 U/L Critically high 46-116 [facility] Comment on above: Performed By: #### C MP ####[facility] Nhybnyvctt79[address] [place], [place] [address]Dr. Airam Deuce ALT [Catalytic activity/Vol] 18 U/L Normal 14-59 [facility] Comment on above: Performed By: #### C MP ####[facility] Zfafuyzeao535[address] [place], [place] [address]Dr. Airam Tripathi Anion gap [Moles/Vol] 11.2 mmol/L Normal [facility] Comment on above: Performed By: #### C MP ####[facility] Jgoajtmebz845[address] [place], [place] [address]Dr. Airam Deuce AST [Catalytic activity/Vol] 19 U/L Normal 15-37 [facility] Comment on above: Performed By: #### C MP ####[facility] Lvstwgiynj8714[address] [place], [place] [address]Dr. Airam Tripathi Bilirubin [Mass/Vol] 0.3 mg/dL Normal 0.2-1.0 [facility] Comment on above: Performed By: #### C MP ####[facility] Fdesvtclvk7425[address] [place], [place] [address]Dr. Airam Tripathi Calcium [Mass/Vol] 8.8 mg/dL Normal 8.5-10.1 [facility] Comment on above: Performed By: #### C MP ####[facility] Zrfmngdkgk9618[address] [place], [place] [address]Dr. Airam Tripathi Chloride [Moles/Vol] 101 mmol/L Normal 98-107 [facility] Comment on above: Performed By: #### C MP ####[facility] Ipqylsfdax9022 [place] [phone]. Airam Tripathi CO2 [Moles/Vol] 25.4 mmol/L Normal 21.0-32.0 [facility] Comment on above: Performed By: #### C MP ####[facility] Ppfmbhqynf3671 [place] [phone]. Airam Tripathi Creatinine [Mass/Vol] 1.05 mg/dL Critically high 0.55-1.02 [facility] Comment on above: Performed By: #### C MP ####[facility] Lkrkloiwxs8146 [place] [address]Dr. Airam Tripathi EGFR-AF BARBADIAN >60 Normal >=60 [facility] Comment on above: Performed By: #### C MP ####[facility] Zppqaoevvt936[address] [place], [place] [address]Dr. Airam Tripathi EGFR-NON AF BARBADIAN 53 mL/min/1.73m2 Critically low >=60 [facility] Comment on above: Performed By: #### C MP ####[facility] Iezgcwfavy9299 [place] [address]Dr. Airam Tripathi Globulin (S) [Mass/Vol] 3.4 g/dL Normal [facility] Comment on above: Performed By: #### C MP ####[facility] Zxfhziwwos403198 [address] [place], [place] [address]Dr. Airam Tripathi Glucose [Mass/Vol] 78 mg/dL Normal 74-106 [facility] Comment on above: Performed By: #### C MP ####[facility] Rxgxifdofs096298 [address] [place], [place] [address]Dr. Airam Tripathi Potassium [Moles/Vol] 4.6 mmol/L Normal 3.5-5.1 [facility] Comment on above: Performed By: #### C MP ####[facility] Mmjcqmkmmr0841 [place] [address]Dr. Airam Tripathi Protein [Mass/Vol] 6.4 g/dL Normal 6.4-8.2 [facility] Comment on above: Performed By: #### C MP ####[facility] Wplttksmit6068 [place] [phone]. Airam Tripathi Sodium [Moles/Vol] 133 mmol/L Critically low 136-145 Th [facility] Comment on above: Performed By: #### C MP ####[facility] Fitatiudvf7523[address] [place], [place] [address]Dr. Airam Tripathi Urea nitrogen [Mass/Vol] 26.0 mg/dL Critically high 7.0-18.0 [facility] Comment on above: Performed By: #### C MP ####[facility] Gljascjciy511[address] [place], [place] [address]Dr. Airam Tripathi Urea nitrogen/Creatinine [Mass ratio] 24.8 mg/mg Normal [facility] Comment on above: Performed By: #### C MP ####[facility] Fovclvyith257398 [address] [place], [place] [address]Dr. Airam Tripathi OSMOLALITYon 07-29-2022 Osmolality [Osmolality] 287 mosm/kg Normal 275-295 [facility] Comment on above: Performed By: #### O SMO ####[facility] Axjmdfwffv533[address] [place], [place] [address]Dr. Airam Tripathi CBC AUTO DIFFon 07-27-2022 BASO # 0.0 103/ul Normal 0.0-0.1 [facility] Comment on above: Performed By: #### C BC ####[facility] Gqqaswdslx3155 [place] [address]Dr. Airam Deuce Basophils/100 WBC (Bld) 0.4 % Normal 0.2-2.0 [facility] Comment on above: Performed By: #### C BC ####[facility] Krjwmvodst544[address] [place], [place] [address]Dr. Airam Deuce EO # 0.2 103/ul Normal 0.0-0.7 [facility] Comment on above: Performed By: #### C BC ####[facility] Anrznywufz074198 [address] [place], [place] [address]Dr. Airam Deuce Eosinophils/100 WBC (Bld) 2.6 % Normal 0.9-7.0 [facility] Comment on above: Performed By: #### C BC ####[facility] Hzqulqyifu277898 [address] [place], [place] [address]Dr. Airam Tripathi Erythrocyte distribution width (RBC) [Ratio] 14.2 % Normal 11.0-15.0 [facility] Comment on above: Performed By: #### C BC ####[facility] Alhgryhpaa5845[address] [place], [place] [address]Dr. Airam Tripathi Hematocrit (Bld) [Volume fraction] 31.3 % Critically low 36.0-48.0 [facility] Comment on above: Performed By: #### C BC ####[facility] Cjplnkrkbk998[address] [place], [place] [address]Dr. Airam Tripathi Hemoglobin (Bld) [Mass/Vol] 9.3 g/dL Critically low 12.0-16.0 [facility] Comment on above: Performed By: #### C BC ####[facility] Jcansvewnu215898 [address] [place], [place] [address]Dr. Airam Tripathi IG # 0.05 10e3/ul Critically high 0.00-0.03 [facility] Comment on above: Performed By: #### C BC ####[facility] Pddhbdkjwo2567[address] [place], [place] [address]Dr. Airam Tripathi IG % 0.7 % Critically high 0.0-0.5 [facility] Comment on above: Performed By: #### C BC ####[facility] Nvubbmtrfg378398 [address] [place], [place] [address]Dr. Airam Tripathi LYMPH # 1.0 103/ul Critically low 1.2-3.8 [facility] Comment on above: Performed By: #### C BC ####[facility] Ulthsahnzu701198 [address] [place], [place] [address]Dr. Airam Tripathi Lymphocytes/100 WBC (Bld) 13.4 % Critically low 20.5-60.0 [facility] Comment on above: Performed By: #### C BC ####[facility] Vfbsrfcvmk3200[address] [place], [place] [address]Dr. Airam Tripathi MANUAL DIFF REQ NO Normal [facility] Comment on above: Performed By: #### C BC ####[facility] Ehwuxjvudw9029 [place] [phone]. Airam Deuce MCH (RBC) [Entitic mass] 28.8 pg Normal 26.7-34.0 [facility] Comment on above: Performed By: #### C BC ####[facility] Oftxvggirj6966 [place] [address]Dr. Airam Deuce MCHC (RBC) [Mass/Vol] 29.7 g/dL Critically low 29.9-35.2 [facility] Comment on above: Performed By: #### C BC ####[facility] Mngcdfltwa5256 [place] [address]Dr. Airam Tripathi MCV (RBC) [Entitic vol] 96.9 fL Normal 81.0-99.0 [facility] Comment on above: Performed By: #### C BC ####[facility] Mqqrlgwasg0860[address] [place], [place] [address]Dr. Airam Tripathi MONO # 0.5 103/ul Normal 0.3-0.8 [facility] Comment on above: Performed By: #### C BC ####[facility] Nrlrgtbyzr119098 [address] [place], [place] [address]Dr. Airam Tripathi Monocytes/100 WBC (Bld) 6.3 % Normal 1.7-12.0 [facility] Comment on above: Performed By: #### C BC ####[facility] Xxfxxqfzzn811[address] [place], [place] [address]Dr. Airam Tripathi NEUT # 5.8 103/ul Normal 1.4-6.5 [facility] Comment on above: Performed By: #### C BC ####[facility] Wtxqcdfzrk512[address] [place], [place] [address]Dr. Airam Tripathi Neutrophils/100 WBC (Bld) 76.6 % Critically high 43.0-75.0 [facility] Comment on above: Performed By: #### C BC ####[facility] Nnknrndkra1147[address] [place], [place] [address]Dr. Airam Tripathi Platelet mean volume (Bld) [Entitic vol] 10.3 fL Normal 9.5-13.5 [facility] Comment on above: Performed By: #### C BC ####[facility] Xwjhlwibia7091 [place] [address]Dr. Selenaneil Deuce PLT 265 103/ul Normal 150-450 [facility] Comment on above: Performed By: #### C BC ####[facility] Aiffagvaxf7169 [place] [phone]. Selenaneil Tripathi RBC 3.23 106/ul Critically low 4.20-5.40 [facility] Comment on above: Performed By: #### C BC ####[facility] Oliycimkou3705 [place] [address]Dr. Selenaneil Deuce WBC 7.6 103/ul Normal 4.0-11.0 [facility] Comment on above: Performed By: #### C BC ####[facility] Cbayuuoyzr3798 [place] [address]Dr. Airam Tripathi PROF 14(COMP METB)on 023 Albumin [Mass/Vol] 2.9 g/dL Critically low 3.4-5.0 [facility] Comment on above: Performed By: #### C MP ####[facility] Uaawzcixhd692[address] [place], [place] [address]Dr. Airam Tripathi Albumin/Globulin [Mass ratio] 0.8 {ratio} Normal [facility] Comment on above: Performed By: #### C MP ####[facility] Xjmvjnnyli9482 [place] [address]Dr. Airam Tripathi ALP [Catalytic activity/Vol] 175 U/L Critically high 46-116 [facility] Comment on above: Performed By: #### C MP ####[facility] Rkptuobcmd9703 [place] [address]Dr. Airam Tripathi ALT [Catalytic activity/Vol] 24 U/L Normal 14-59 [facility] Comment on above: Performed By: #### C MP ####[facility] Fmstejfihi0212 [place] [address]Dr. Airam Tripathi Anion gap [Moles/Vol] 14.3 mmol/L Normal [facility] Comment on above: Performed By: #### C MP ####[facility] Haltguwvsq1567 [place] [address]Dr. Airam Tripathi AST [Catalytic activity/Vol] 25 U/L Normal 15-37 [facility] Comment on above: Performed By: #### C MP ####[facility] Stsqjwoled9699 [place] [address]Dr. Airam Tripathi Bilirubin [Mass/Vol] 0.2 mg/dL Normal 0.2-1.0 [facility] Comment on above: Performed By: #### C MP ####[facility] Blsditeewn257[address] [place], [place] [address]Dr. Airam Tripathi Calcium [Mass/Vol] 8.6 mg/dL Normal 8.5-10.1 [facility] Comment on above: Performed By: #### C MP ####[facility] Kvjfkszrly7416[address] [place], [place] [address]Dr. Airam Tripathi Chloride [Moles/Vol] 102 mmol/L Normal 98-107 [facility] Comment on above: Performed By: #### C MP ####[facility] Oqowkqjqea3895[address] [place], [place] [address]Dr. Airam Tripathi CO2 [Moles/Vol] 23.7 mmol/L Normal 21.0-32.0 [facility] Comment on above: Performed By: #### C MP ####[facility] Vdbffowugt6444[address] [place], [place] [address]Dr. Airam Tripathi Creatinine [Mass/Vol] 1.29 mg/dL Critically high 0.55-1.02 [facility] Comment on above: Performed By: #### C MP ####[facility] Tttavncjfz2368[address] [place], [place] [address]Dr. Airam Tripathi EGFR-AF BARBADIAN 51 mL/min/1.73m2 Critically low >=60 [facility] Comment on above: Performed By: #### C MP ####[facility] Pigyjhlplg4612[address] [place], [place] [address]Dr. Airam Deuce EGFR-NON AF BARBADIAN 42 mL/min/1.73m2 Critically low >=60 [facility] Comment on above: Performed By: #### C MP ####[facility] Tylutvxujf3114 [place] [address]Dr. Airam Tripathi Globulin (S) [Mass/Vol] 3.6 g/dL Normal [facility] Comment on above: Performed By: #### C MP ####[facility] Lubchnvelr5627 [place] [address]Dr. Airam Tripathi Glucose [Mass/Vol] 84 mg/dL Normal 74-106 [facility] Comment on above: Performed By: #### C MP ####[facility] Tuciaakflu8035[address] [place], [place] [address]Dr. Aiarm Deuce Potassium [Moles/Vol] 5.0 mmol/L Normal 3.5-5.1 [facility] Comment on above: Performed By: #### C MP ####[facility] Tcuyypofqk617[address] [place], [place] [address]Dr. Airam Tripathi Protein [Mass/Vol] 6.5 g/dL Normal 6.4-8.2 [facility] Comment on above: Performed By: #### C MP ####[facility] Rpzovzugev070[address] [place], [place] [address]Dr. Airam Deuce Sodium [Moles/Vol] 135 mmol/L Critically low 136-145 Th [facility] Comment on above: Performed By: #### C MP ####[facility] Zrzsoutcfo536[address] [place], [place] [address]Dr. Selenaneil Deuce Urea nitrogen [Mass/Vol] 28.0 mg/dL Critically high 7.0-18.0 [facility] Comment on above: Performed By: #### C MP ####[facility] Snoslgqrvg236398 [address] [place], [place] [address]Dr. Selenaneil Deuce Urea nitrogen/Creatinine [Mass ratio] 21.7 mg/mg Normal [facility] Comment on above: Performed By: #### C MP ####[facility] Ktnnfrfxlq9950[address] [place], [place] [address]Dr. Airam Tripathi XR LSPINE MIN 4 VIEWSon 02-0 XR LSPINE MIN 4 VIEWS Normal [facility] OSMOLALITYon 07-24-2022 Osmolality [Osmolality] 279 mosm/kg Normal 275-295 [facility] Comment on above: Performed By: #### O SMO ####[facility] Zmctkrdmfv0400[address] [place], [place] [address]Dr. Airam Tripathi CBC AUTO DIFFon 07-21-2022 BASO # 0.0 103/ul Normal 0.0-0.1 [facility] Comment on above: Performed By: #### C BC ####[facility] Aowifqewby544[address] [place], [place] [address]Dr. Airam Tripathi Basophils/100 WBC (Bld) 0.4 % Normal 0.2-2.0 [facility] Comment on above: Performed By: #### C BC ####[facility] Mllridstma9747[address] [place], [place] [address]Dr. Airam Tripathi EO # 0.2 103/ul Normal 0.0-0.7 [facility] Comment on above: Performed By: #### C BC ####[facility] Vhpewcazyn8420[address] [place], [place] [address]Dr. Airam Tripathi Eosinophils/100 WBC (Bld) 2.3 % Normal 0.9-7.0 [facility] Comment on above: Performed By: #### C BC ####[facility] Vdjpaolzfg6977[address] [place], [place] [address]Dr. Airam Tripathi Erythrocyte distribution width (RBC) [Ratio] 13.6 % Normal 11.0-15.0 [facility] Comment on above: Performed By: #### C BC ####[facility] Uxtyhupidg2550[address] [place], [place] [address]Dr. Airam Tripathi Hematocrit (Bld) [Volume fraction] 32.6 % Critically low 36.0-48.0 [facility] Comment on above: Performed By: #### C BC ####[facility] Zaxzcditca7775[address] [place], [place] [address]Dr. Airam Tripathi Hemoglobin (Bld) [Mass/Vol] 9.5 g/dL Critically low 12.0-16.0 [facility] Comment on above: Performed By: #### C BC ####[facility] Wkstkwcgmq7600 [place] [id number]. Airam Tripathi IG # 0.03 10e3/ul Normal 0.00-0.03 [facility] Comment on above: Performed By: #### C BC ####[facility] Ltpdcviuar9686 [place] [address]Dr. Airam Tripathi IG % 0.4 % Normal 0.0-0.5 [facility] Comment on above: Performed By: #### C BC ####[facility] Lxxzbiqifz1494 [place] [address]Dr. Airam Deuce LYMPH # 1.4 103/ul Normal 1.2-3.8 [facility] Comment on above: Performed By: #### C BC ####[facility] Mcqdxhepqy1746 [place] [address]Dr. Airam Deuce Lymphocytes/100 WBC (Bld) 18.2 % Critically low 20.5-60.0 [facility] Comment on above: Performed By: #### C BC ####[facility] Iczgdijlvk0016 [place] [address]Dr. Airam Deuce MANUAL DIFF REQ NO Normal [facility] Comment on above: Performed By: #### C BC ####[facility] Rapxhsglyx0438 [place] [address]Dr. Airam Tripathi MCH (RBC) [Entitic mass] 29.5 pg Normal 26.7-34.0 [facility] Comment on above: Performed By: #### C BC ####[facility] Cefmtlmgfm3790 [place] [address]Dr. Airam Tripathi MCHC (RBC) [Mass/Vol] 29.1 g/dL Critically low 29.9-35.2 [facility] Comment on above: Performed By: #### C BC ####[facility] Rjbktkmhjr9552 [place] [address]DrKianna Airam Tripathi MCV (RBC) [Entitic vol] 101.2 fL Critically high 81.0-99.0 [facility] Comment on above: Performed By: #### C BC ####[facility] Kzplbpcdtr5917 [place] [address]Dr. Airam Tripathi MONO # 0.6 103/ul Normal 0.3-0.8 [facility] Comment on above: Performed By: #### C BC ####[facility] Qdtlzmeegi6136 [place] [address]Dr. Airam Tripathi Monocytes/100 WBC (Bld) 7.9 % Normal 1.7-12.0 [facility] Comment on above: Performed By: #### C BC ####[facility] Vzzgmakset833[address] [place], [place] [address]Dr. Airam Tripathi NEUT # 5.5 103/ul Normal 1.4-6.5 [facility] Comment on above: Performed By: #### C BC ####[facility] Ystdkixssg030[address] [place], [place] [address]Dr. Airam Tripathi Neutrophils/100 WBC (Bld) 70.8 % Normal 43.0-75.0 [facility] Comment on above: Performed By: #### C BC ####[facility] Feiogaftnu740[address] [place], [place] [address]Dr. Airam Tripathi Platelet mean volume (Bld) [Entitic vol] 9.6 fL Normal 9.5-13.5 [facility] Comment on above: Performed By: #### C BC ####[facility] Zwsifghmnm613[address] [place], [place] [address]Dr. Airam Deuce PLT 265 103/ul Normal 150-450 [facility] Comment on above: Performed By: #### C BC ####[facility] Xluajgrzfo3033[address] [place], [place] [address]Dr. Airam Tripathi RBC 3.22 106/ul Critically low 4.20-5.40 [facility] Comment on above: Performed By: #### C BC ####[facility] Hzarcvhsbu27299[address] [place], [place] [address]Dr. Airam Deuce WBC 7.8 103/ul Normal 4.0-11.0 [facility] Comment on above: Performed By: #### C BC ####[facility] Zyuxfzescf0068[address] [place], [place] [address]Dr. Airam Tripathi PROF 14(COMP METB)on 023 Albumin [Mass/Vol] 2.9 g/dL Critically low 3.4-5.0 [facility] Comment on above: Performed By: #### C MP ####[facility] Xoacwdafby418[address] [place], [place] [address]Dr. Airam Tripathi Albumin/Globulin [Mass ratio] 0.9 {ratio} Normal [facility] Comment on above: Performed By: #### C MP ####[facility] Jytrvgennv2310[address] [place], [place] [address]Dr. Airam Tripathi ALP [Catalytic activity/Vol] 176 U/L Critically high 46-116 [facility] Comment on above: Performed By: #### C MP ####[facility] Umciezkbsy3800[address] [place], [place] [address]Dr. Airam Tripathi ALT [Catalytic activity/Vol] 19 U/L Normal 14-59 [facility] Comment on above: Performed By: #### C MP ####[facility] Oojhtjwdoi425[address] [place], [place] [address]Dr. Airam Tripathi Anion gap [Moles/Vol] 12.6 mmol/L Normal [facility] Comment on above: Performed By: #### C MP ####[facility] Elepldnoxt025098 [address] [place], [place] [address]Dr. Airam Tripathi AST [Catalytic activity/Vol] 25 U/L Normal 15-37 [facility] Comment on above: Performed By: #### C MP ####[facility] Yvghmmxtxs399[address] [place], [place] [address]Dr. Airam Tripathi Bilirubin [Mass/Vol] 0.2 mg/dL Normal 0.2-1.0 [facility] Comment on above: Performed By: #### C MP ####[facility] Rqynrwdyip370[address] [place], [place] [address]Dr. Airam Tripathi Calcium [Mass/Vol] 8.5 mg/dL Normal 8.5-10.1 [facility] Comment on above: Performed By: #### C MP ####[facility] Gqbtthomes2905[address] [place], [place] [address]Dr. Airam Tripathi Chloride [Moles/Vol] 101 mmol/L Normal 98-107 [facility] Comment on above: Performed By: #### C MP ####[facility] Ykwetoiyhm5810 [place] [address]Dr. Airam Tripathi CO2 [Moles/Vol] 25.9 mmol/L Normal 21.0-32.0 [facility] Comment on above: Performed By: #### C MP ####[facility] Imnrzutniz6603 [place] [address]Dr. Airam Deuce Creatinine [Mass/Vol] 1.11 mg/dL Critically high 0.55-1.02 [facility] Comment on above: Performed By: #### C MP ####[facility] Mwawpagxlm306[address] [place], [place] [address]Dr. Airam Deuce EGFR-AF BARBADIAN >60 Normal >=60 [facility] Comment on above: Performed By: #### C MP ####[facility] Dyquvjeibe356298 [address] [place], [place] [address]Dr. Airam Deuce EGFR-NON AF BAR[place]IAN 50 mL/min/1.73m2 Critically low >=60 [facility] Comment on above: Performed By: #### C MP ####[facility] Pkxsdbmrwy020[address] [place], [place] [address]Dr. Airam Deuce Globulin (S) [Mass/Vol] 3.2 g/dL Normal [facility] Comment on above: Performed By: #### C MP ####[facility] Zfalyibluq969[address] [place], [place] [address]Dr. Airam Deuce Glucose [Mass/Vol] 80 mg/dL Normal 74-106 [facility] Comment on above: Performed By: #### C MP ####[facility] Rofuuuigmm01[address] [place], [place] [address]Dr. Selenaneil Tripathi Potassium [Moles/Vol] 3.5 mmol/L Normal 3.5-5.1 [facility] Comment on above: Performed By: #### C MP ####[facility] Khfnhyzjnb068[address] [place], [place] [address]Dr. Airam Tripathi Protein [Mass/Vol] 6.1 g/dL Critically low 6.4-8.2 [facility] Comment on above: Performed By: #### C MP ####[facility] Qezbgcswvb1980[address] [place], [place] [address]DrKianna Tripathi Sodium [Moles/Vol] 136 mmol/L Normal 136-145 [facility] [facility] Comment on above: Performed By: #### C MP ####[facility] Pbzclrhaxx69[address] [place], [place] [address]DrKianna Tripathi Urea nitrogen [Mass/Vol] 31.0 mg/dL Critically high 7.0-18.0 [facility] Comment on above: Performed By: #### C MP ####[facility] Rbxipzfzuu[address] [place], [place] [address]DrKianna Tripathi Urea nitrogen/Creatinine [Mass ratio] 27.9 mg/mg Normal [facility] Comment on above: Performed By: #### C MP ####[facility] Uwvzcncxwc[address] [place], [place] [address]DrKianna Tripathi OSMOLALITYon 07-19-2022 Osmolality [Osmolality] 285 mosm/kg Normal 275-295 [facility] Comment on above: Performed By: #### O SMO ####[facility] Hgvxqzmasy3616[address] [place], [place] [address]DrKianna Tripathi CBC AUTO DIFFon 07-15-2022 BASO # 0.0 103/ul Normal 0.0-0.1 [facility] Comment on above: Performed By: #### C BC ####[facility] Kaeetdmufp339[address] [place], [place] [address]DrKianna Tripathi Basophils/100 WBC (Bld) 0.2 % Normal 0.2-2.0 [facility] Comment on above: Performed By: #### C BC ####[facility] Lejykkyyar7540[address] [place], [place] [address]DrKianna Tripathi EO # 0.1 103/ul Normal 0.0-0.7 [facility] Comment on above: Performed By: #### C BC ####[facility] Shkkozbyjh145398 [address] [place], [place] [address]DrKianna Tripathi Eosinophils/100 WBC (Bld) 1.4 % Normal 0.9-7.0 [facility] Comment on above: Performed By: #### C BC ####[facility] Lyricdbnzv41969[address] [place], [place] [address]Dr. Airam Tripathi Erythrocyte distribution width (RBC) [Ratio] 13.0 % Normal 11.0-15.0 [facility] Comment on above: Performed By: #### C BC ####[facility] Snsgmjdhja177[address] [place], [place] [address]Dr. Airam Tripathi Hematocrit (Bld) [Volume fraction] 29.3 % Critically low 36.0-48.0 [facility] Comment on above: Performed By: #### C BC ####[facility] Eottcqlbve9099[address] [place], [place] [address]Dr. Airam Tripathi Hemoglobin (Bld) [Mass/Vol] 10.3 g/dL Critically low 12.0-16.0 [facility] Comment on above: Performed By: #### C BC ####[facility] Fyitrhbunl7[address] [place], [place] [address]Dr. Airam Tripathi IG # 0.05 10e3/ul Critically high 0.00-0.03 [facility] Comment on above: Performed By: #### C BC ####[facility] Gfyrvfsodt024[address] [place], [place] [address]Dr. Airam Tripathi IG % 0.6 % Critically high 0.0-0.5 [facility] Comment on above: Performed By: #### C BC ####[facility] Spxoiqdexo7700[address] [place], [place] [address]Dr. Airam Tripathi LYMPH # 0.9 103/ul Critically low 1.2-3.8 [facility] Comment on above: Performed By: #### C BC ####[facility] Ihepqbkgdq722498 [address] [place], [place] [address]Dr. Airam Tripathi Lymphocytes/100 WBC (Bld) 10.6 % Critically low 20.5-60.0 [facility] Comment on above: Performed By: #### C BC ####[facility] [address]mypdpj[address] [place] [address]Dr. Airam Deuce MANUAL DIFF REQ NO Normal [facility] Comment on above: Performed By: #### C BC ####[facility] Ggjgzwtyco2285 [place] [address]Dr. Airam Deuce MCH (RBC) [Entitic mass] 29.3 pg Normal 26.7-34.0 [facility] Comment on above: Performed By: #### C BC ####[facility] Vsudzfosfm4738[address] [place], [place] [address]Dr. Airam Deuce MCHC (RBC) [Mass/Vol] 35.2 g/dL Normal 29.9-35.2 [facility] Comment on above: Performed By: #### C BC ####[facility] Gtsrgnjxze173[address] [place], [place] [address]Dr. Selenaneil Tripathi MCV (RBC) [Entitic vol] 83.5 fL Normal 81.0-99.0 [facility] Comment on above: Performed By: #### C BC ####[facility] Uzjpvshyll7723[address] [place], [place] [address]Dr. Selenaneil Tripathi MONO # 0.5 103/ul Normal 0.3-0.8 [facility] Comment on above: Performed By: #### C BC ####[facility] Qbwucklsyt439398 [address] [place], [place] [address]Dr. Airam Tripathi Monocytes/100 WBC (Bld) 5.1 % Normal 1.7-12.0 [facility] Comment on above: Performed By: #### C BC ####[facility] Kkxquwlulh095398 [address] [place], [place] [address]Dr. Airam Tripathi NEUT # 7.3 103/ul Critically high 1.4-6.5 [facility] Comment on above: Performed By: #### C BC ####[facility] Sdjbnezuew650[address] [place], [place] [address]Dr. Airam Tripathi Neutrophils/100 WBC (Bld) 82.1 % Critically high 43.0-75.0 [facility] Comment on above: Performed By: #### C BC ####[facility] Ddfhjkqysf555[address] [place], [place] [id number]. Airam Deuce Platelet mean volume (Bld) [Entitic vol] 8.9 fL Critically low 9.5-13.5 [facility] Comment on above: Performed By: #### C BC ####[facility] Gzuynvxtiu4[address] [place] [address]Dr. Selenaneil Deuce PLT 290 103/ul Normal 150-450 [facility] Comment on above: Performed By: #### C BC ####[facility] Sipnfihffz6107 [place] [address]Dr. Selenaneil Deuce RBC 3.51 106/ul Critically low 4.20-5.40 [facility] Comment on above: Performed By: #### C BC ####[facility] Dvufgbsccj2275 [place] [address]Dr. Selenaneil Deuce WBC 8.9 103/ul Normal 4.0-11.0 [facility] Comment on above: Performed By: #### C BC ####[facility] Prcoceotwd3795 [place] [address]Dr. Airam Tripathi PROF 14(COMP METB)on 023 Albumin [Mass/Vol] 3.2 g/dL Critically low 3.4-5.0 [facility] Comment on above: Performed By: #### C MP ####[facility] Kekhdotzix8598 [place] [address]Dr. Airam Tripathi Albumin/Globulin [Mass ratio] 0.9 {ratio} Normal [facility] Comment on above: Performed By: #### C MP ####[facility] Plyxboczat7464 [place] [address]Dr. Airam Tripathi ALP [Catalytic activity/Vol] 194 U/L Critically high 46-116 [facility] Comment on above: Performed By: #### C MP ####[facility] Dbhbsngjio7295 [place] [address]Dr. Airam Tripathi ALT [Catalytic activity/Vol] 19 U/L Normal 14-59 [facility] Comment on above: Performed By: #### C MP ####[facility] Isiihsmpys2314 [place] [address]Dr. Airam Tripathi Anion gap [Moles/Vol] 11.3 mmol/L Normal Th e [facility] Comment on above: Performed By: #### C MP ####[facility] Pqpjxbepgh1925 [place] [address]Dr. Airam Tripathi AST [Catalytic activity/Vol] 24 U/L Normal 15-37 [facility] Comment on above: Performed By: #### C MP ####[facility] Qxsipvzvvn3599[address] [place], [place] [address]Dr. Airam Deuce Bilirubin [Mass/Vol] 0.2 mg/dL Normal 0.2-1.0 [facility] Comment on above: Performed By: #### C MP ####[facility] Gqrlkxtftm515[address] [place], [place] [address]Dr. Airam Tripathi Calcium [Mass/Vol] 8.7 mg/dL Normal 8.5-10.1 [facility] Comment on above: Performed By: #### C MP ####[facility] Fktcprworo3723[address] [place], [place] [address]Dr. Airam Tripathi Chloride [Moles/Vol] 101 mmol/L Normal 98-107 [facility] Comment on above: Performed By: #### C MP ####[facility] Aloyboyprw4723[address] [place], [place] [address]Dr. Airam Tripathi CO2 [Moles/Vol] 27.2 mmol/L Normal 21.0-32.0 [facility] Comment on above: Performed By: #### C MP ####[facility] Hwzemhddyk186[address] [place], [place] [address]Dr. Airam Tripathi Creatinine [Mass/Vol] 1.17 mg/dL Critically high 0.55-1.02 [facility] Comment on above: Performed By: #### C MP ####[facility] Hxbokaquty347498 [address] [place], [place] [address]Dr. Selenaneil Deuce EGFR-AF BARBADIAN 57 mL/min/1.73m2 Critically low >=60 [facility] Comment on above: Performed By: #### C MP ####[facility] Wtjyikfpfv964[address] [place], [place] [address]Dr. Airam Tripathi EGFR-NON AF [place] 47 mL/min/1.73m2 Critically low >=60 [facility] Comment on above: Performed By: #### C MP ####[facility] Rgwxbxpuqa5624 [place] [address]Dr. Airam Tripathi Globulin (S) [Mass/Vol] 3.5 g/dL Normal [facility] Comment on above: Performed By: #### C MP ####[facility] Hhjxqdtzyw701[address] [place], [place] [address]Dr. Airam Tripathi Glucose [Mass/Vol] 86 mg/dL Normal 74-106 [facility] Comment on above: Performed By: #### C MP ####[facility] Rlsiyliqsk588[address] [place], [place] [address]Dr. Airam Tripathi Potassium [Moles/Vol] 5.5 mmol/L Critically high 3.5-5.1 [facility] Comment on above: Performed By: #### C MP ####[facility] Bllawbhqmp914398 [address] [place], [place] [address]Dr. Airam Tripathi Protein [Mass/Vol] 6.7 g/dL Normal 6.4-8.2 [facility] Comment on above: Performed By: #### C MP ####[facility] Bgbezfgwia244[address] [place], [place] [address]Dr. Airam Tripathi Sodium [Moles/Vol] 134 mmol/L Critically low 136-145 Th [facility] Comment on above: Performed By: #### C MP ####[facility] Qwyayfqbbs130[address] [place], [place] [address]Dr. Airam Tripathi Urea nitrogen [Mass/Vol] 26.0 mg/dL Critically high 7.0-18.0 [facility] Comment on above: Performed By: #### C MP ####[facility] Xhboeaygbr947[address] [place], [place] [address]Dr. Airam Tripathi Urea nitrogen/Creatinine [Mass ratio] 22.2 mg/mg Normal [facility] Comment on above: Performed By: #### C MP ####[facility] Qygnafyxfu2099[address] [place], [place] [address]Dr. Airam Tripathi OSMOLALITYon 07-08-2022 Osmolality [Osmolality] 273 mosm/kg Critically low 275-295 [facility] Comment on above: Performed By: #### O SMO ####[facility] Q[address]vohin[address] [place] [address]Dr. Airam Tripathi CBC AUTO DIFFon 07-07-2022 BASO # 0.0 103/ul Normal 0.0-0.1 [facility] Comment on above: Performed By: #### C BC ####[facility] Mvewdmmstu7651 [place] [address]Dr. Airam Tripathi Basophils/100 WBC (Bld) 0.4 % Normal 0.2-2.0 [facility] Comment on above: Performed By: #### C BC ####[facility] Dmpwcbqcpe495[address] [place], [place] [address]Dr. Airam Tripathi EO # 0.1 103/ul Normal 0.0-0.7 [facility] Comment on above: Performed By: #### C BC ####[facility] Vbrwguogst588[address] [place], [place] [address]Dr. Airam Tripathi Eosinophils/100 WBC (Bld) 1.6 % Normal 0.9-7.0 [facility] Comment on above: Performed By: #### C BC ####[facility] Kpxaoihpli795[address] [place], [place] [address]Dr. Airam Tripathi Erythrocyte distribution width (RBC) [Ratio] 13.1 % Normal 11.0-15.0 [facility] Comment on above: Performed By: #### C BC ####[facility] Sgtvufeijw5787[address] [place], [place] [address]Dr. Airam Tripathi Hematocrit (Bld) [Volume fraction] 33.7 % Critically low 36.0-48.0 [facility] Comment on above: Performed By: #### C BC ####[facility] Grcpzbkyje786[address] [place], [place] [address]Dr. Airam Tripathi Hemoglobin (Bld) [Mass/Vol] 9.9 g/dL Critically low 12.0-16.0 [facility] Comment on above: Performed By: #### C BC ####[facility] Cgsqdfjwfq7792 [place] [id number]. Airam Tripathi IG # 0.05 10e3/ul Critically high 0.00-0.03 [facility] Comment on above: Performed By: #### C BC ####[facility] Iidxiqoqhj9003 [place] [id number]. Airam Tripathi IG % 0.6 % Critically high 0.0-0.5 [facility] Comment on above: Performed By: #### C BC ####[facility] Qclsqqfehj2616 [place] [address]Dr. Airam Tripathi LYMPH # 1.2 103/ul Normal 1.2-3.8 [facility] Comment on above: Performed By: #### C BC ####[facility] Pjbvxpxcva7143 [place] [address]Dr. Airam Tripathi Lymphocytes/100 WBC (Bld) 15.5 % Critically low 20.5-60.0 [facility] Comment on above: Performed By: #### C BC ####[facility] Qzivtcyzeg8572 [place] [address]Dr. Selenaneil Tripathi MANUAL DIFF REQ NO Normal [facility] Comment on above: Performed By: #### C BC ####[facility] Jkjdsmozwt1289 [place] [address]Dr. Airam Tripathi MCH (RBC) [Entitic mass] 28.7 pg Normal 26.7-34.0 [facility] Comment on above: Performed By: #### C BC ####[facility] Ngyykabbzx0434 [place] [address]Dr. Airam Tripathi MCHC (RBC) [Mass/Vol] 29.4 g/dL Critically low 29.9-35.2 [facility] Comment on above: Performed By: #### C BC ####[facility] Otaglolpie8518 [place] [address]Dr. Airam Tripathi MCV (RBC) [Entitic vol] 97.7 fL Normal 81.0-99.0 [facility] Comment on above: Performed By: #### C BC ####[facility] Gvelzikrza4629 [place] [id number]. Airam Tripathi MONO # 0.6 103/ul Normal 0.3-0.8 [facility] Comment on above: Performed By: #### C BC ####[facility] Dzhkdjujlj5872 [place] [id number]. Airam Tripathi Monocytes/100 WBC (Bld) 7.7 % Normal 1.7-12.0 [facility] Comment on above: Performed By: #### C BC ####[facility] Ggrpbciltx4236 [place] [id number]. Airam Tripathi NEUT # 5.9 103/ul Normal 1.4-6.5 [facility] Comment on above: Performed By: #### C BC ####[facility] Fltjmlvndg7434 [place] [id number]. Airam Tripathi Neutrophils/100 WBC (Bld) 74.2 % Normal 43.0-75.0 [facility] Comment on above: Performed By: #### C BC ####[facility] Irhbltbkqq9097 [place] [phone]. Airam Tripathi Platelet mean volume (Bld) [Entitic vol] 9.4 fL Critically low 9.5-13.5 [facility] Comment on above: Performed By: #### C BC ####[facility] Sutezkzpni9946 [place] [id number]. Airam Tripathi PLT 331 103/ul Normal 150-450 [facility] Comment on above: Performed By: #### C BC ####[facility] Xnthwaxgcv1536 [place] [phone]. Airam Tripathi RBC 3.45 106/ul Critically low 4.20-5.40 [facility] Comment on above: Performed By: #### C BC ####[facility] Upohtttlhe6806 [place] [id number]. Airam Tripathi WBC 7.9 103/ul Normal 4.0-11.0 [facility] Comment on above: Performed By: #### C BC ####[facility] Gkkpzxgumq2894 [place] [address]Dr. Airam Tripathi PROF 14(COMP METB)on 023 Albumin [Mass/Vol] 3.4 g/dL Normal 3.4-5.0 [facility] Comment on above: Performed By: #### C MP ####[facility] Rseqnlgons5673 [place] [address]Dr. Airam Tripathi Albumin/Globulin [Mass ratio] 1.1 {ratio} Normal [facility] Comment on above: Performed By: #### C MP ####[facility] Fmztuwmdis320[address] [place], [place] [address]Dr. Airam Tripathi ALP [Catalytic activity/Vol] 197 U/L Critically high 46-116 [facility] Comment on above: Performed By: #### C MP ####[facility] Tgvstxiqon405[address] [place], [place] [address]Dr. Airam Tripathi ALT [Catalytic activity/Vol] 18 U/L Normal 14-59 [facility] Comment on above: Performed By: #### C MP ####[facility] Fssahyxjza950[address] [place], [place] [address]Dr. Airam Tripathi Anion gap [Moles/Vol] 12.3 mmol/L Normal [facility] Comment on above: Performed By: #### C MP ####[facility] Vfkgwsczkt1324[address] [place], [place] [address]Dr. Airam Tripathi AST [Catalytic activity/Vol] 26 U/L Normal 15-37 [facility] Comment on above: Performed By: #### C MP ####[facility] Dcezulcqmg725[address] [place], [place] [address]Dr. Airam Tripathi Bilirubin [Mass/Vol] 0.3 mg/dL Normal 0.2-1.0 [facility] Comment on above: Performed By: #### C MP ####[facility] Dhchopgibw4412[address] [place], [place] [address]Dr. Airam Tripathi Calcium [Mass/Vol] 8.6 mg/dL Normal 8.5-10.1 [facility] Comment on above: Performed By: #### C MP ####[facility] Bzcbontnkj9747 [place] [id number]. Airam Tripathi Chloride [Moles/Vol] 96 mmol/L Critically low 98-107 [facility] Comment on above: Performed By: #### C MP ####[facility] Lilgxfcwlu8133 [place] [address]Dr. Airam Tripathi CO2 [Moles/Vol] 27.8 mmol/L Normal 21.0-32.0 [facility] Comment on above: Performed By: #### C MP ####[facility] Xtpjftujsc1264[address] [place], [place] [address]Dr. Airam Tripathi Creatinine [Mass/Vol] 1.55 mg/dL Critically high 0.55-1.02 [facility] Comment on above: Performed By: #### C MP ####[facility] Hocwjcbyco805[address] [place], [place] [address]Dr. Airam Tripathi EGFR-AF [place] 41 mL/min/1.73m2 Critically low >=60 [facility] Comment on above: Performed By: #### C MP ####[facility] Hcrqjwktdq765[address] [place], [place] [address]Dr. Airam Tripathi EGFR-NON AF [place] 34 mL/min/1.73m2 Critically low >=60 [facility] Comment on above: Performed By: #### C MP ####[facility] Ofbfvtxuls494398 [address] [place], [place] [address]Dr. Airam Tripathi Globulin (S) [Mass/Vol] 3.2 g/dL Normal [facility] Comment on above: Performed By: #### C MP ####[facility] Zvbbpxkqty478498 [address] [place], [place] [address]Dr. Airam Tripathi Glucose [Mass/Vol] 87 mg/dL Normal 74-106 [facility] Comment on above: Performed By: #### C MP ####[facility] Bgfrxukcim6915[address] [place], [place] [address]Dr. Airam Tripathi Potassium [Moles/Vol] 5.1 mmol/L Normal 3.5-5.1 [facility] Comment on above: Performed By: #### C MP ####[facility] Jybcgvgryl5834 [place] [address]Dr. Airam Tripathi Protein [Mass/Vol] 6.6 g/dL Normal 6.4-8.2 [facility] Comment on above: Performed By: #### C MP ####[facility] Kikyrnmjgc1549 [place] [address]Dr. Airam Tripathi Sodium [Moles/Vol] 131 mmol/L Critically low 136-145 Th [facility] Comment on above: Performed By: #### C MP ####[facility] Xwozrisjsv6523[address] [place], [place] [address]Dr. Airam Tripathi Urea nitrogen [Mass/Vol] 31.0 mg/dL Critically high 7.0-18.0 [facility] Comment on above: Performed By: #### C MP ####[facility] Yrkobrysbd860398 [address] [place], [place] [address]Dr. Airam Deuce Urea nitrogen/Creatinine [Mass ratio] 20.0 mg/mg Normal [facility] Comment on above: Performed By: #### C MP ####[facility] Zkdnnwgaby0075[address] [place], [place] [address]Dr. Airam Tripathi OSMOLALITYon 07-02-2022 Osmolality [Osmolality] 281 mosm/kg Normal 275-295 [facility] Comment on above: Performed By: #### O SMO ####[facility] Fgznxrkdat8734[address] [place], [place] [address]Dr. Airam Deuce CBC AUTO DIFFon 06-29-2022 BASO # 0.0 103/ul Normal 0.0-0.1 [facility] Comment on above: Performed By: #### C BC ####[facility] Akmzunjclg0875[address] [place], [place] [address]Dr. Airam Deuce Basophils/100 WBC (Bld) 0.3 % Normal 0.2-2.0 [facility] Comment on above: Performed By: #### C BC ####[facility] Uqhjkljsqj7435[address] [place], [place] [address]Dr. Selenaneil Tripathi EO # 0.2 103/ul Normal 0.0-0.7 [facility] Comment on above: Performed By: #### C BC ####[facility] Qyoutpshhy1336 [place] [phone]. Airam Tripathi Eosinophils/100 WBC (Bld) 2.3 % Normal 0.9-7.0 [facility] Comment on above: Performed By: #### C BC ####[facility] Ngiclxpcvx0915 [place] [address]Dr. Airam Tripathi Erythrocyte distribution width (RBC) [Ratio] 13.2 % Normal 11.0-15.0 [facility] Comment on above: Performed By: #### C BC ####[facility] Djdrqeluwh338[address] [place], [place] [address]Dr. Airam Tripathi Hematocrit (Bld) [Volume fraction] 28.2 % Critically low 36.0-48.0 [facility] Comment on above: Performed By: #### C BC ####[facility] Okztgyzfks9724[address] [place], [place] [address]Dr. Airam Tripathi Hemoglobin (Bld) [Mass/Vol] 9.1 g/dL Critically low 12.0-16.0 [facility] Comment on above: Performed By: #### C BC ####[facility] Qewxcxrrsa216[address] [place], [place] [address]Dr. Airam Tripathi IG # 0.03 10e3/ul Normal 0.00-0.03 [facility] Comment on above: Performed By: #### C BC ####[facility] Ibmectbkhf3959 [place] [address]Dr. Airam Tripathi IG % 0.4 % Normal 0.0-0.5 [facility] Comment on above: Performed By: #### C BC ####[facility] Bxqnkebrbf67[address] [place], [place] [address]Dr. Airam Tripathi LYMPH # 1.0 103/ul Critically low 1.2-3.8 [facility] Comment on above: Performed By: #### C BC ####[facility] Orfywewkul404398 [address] [place], [place] [address]Dr. Airam Tripathi Lymphocytes/100 WBC (Bld) 12.8 % Critically low 20.5-60.0 [facility] Comment on above: Performed By: #### C BC ####[facility] Atznlnrygq7635 [place] [address]Dr. Airam Tripathi MANUAL DIFF REQ NO Normal [facility] Comment on above: Performed By: #### C BC ####[facility] Ixqwtvqikz4461 [place] [phone]. Airam Tripathi MCH (RBC) [Entitic mass] 29.9 pg Normal 26.7-34.0 [facility] Comment on above: Performed By: #### C BC ####[facility] Urwuaxkgxu200[address] [place], [place] [address]Dr. Airam Tripathi MCHC (RBC) [Mass/Vol] 32.3 g/dL Normal 29.9-35.2 [facility] Comment on above: Performed By: #### C BC ####[facility] Vcrrdhevjn786[address] [place], [place] [address]Dr. Airam Tripathi MCV (RBC) [Entitic vol] 92.8 fL Normal 81.0-99.0 [facility] Comment on above: Performed By: #### C BC ####[facility] Fahovqkjvd630[address] [place], [place] [address]Dr. Airam Tripathi MONO # 0.5 103/ul Normal 0.3-0.8 [facility] Comment on above: Performed By: #### C BC ####[facility] Suaskwlwie8960[address] [place], [place] [address]Dr. Selenaneil Tripathi Monocytes/100 WBC (Bld) 6.0 % Normal 1.7-12.0 [facility] Comment on above: Performed By: #### C BC ####[facility] Htnhtlmwxa997[address] [place], [place] [address]Dr. Airam Tripathi NEUT # 6.0 103/ul Normal 1.4-6.5 [facility] Comment on above: Performed By: #### C BC ####[facility] Brysfqiuoo376[address] [place], [place] [address]Dr. Airam Tripathi Neutrophils/100 WBC (Bld) 78.2 % Critically high 43.0-75.0 [facility] Comment on above: Performed By: #### C BC ####[facility] Gnapjvobyo7954 [place] [id number]. Airam Tripathi Platelet mean volume (Bld) [Entitic vol] 9.0 fL Critically low 9.5-13.5 [facility] Comment on above: Performed By: #### C BC ####[facility] Nibwiqgqvu6947 [place] [phone]. Airam Tripathi PLT 332 103/ul Normal 150-450 [facility] Comment on above: Performed By: #### C BC ####[facility] Rbaneablis9811 [place] [address]Dr. Airam Tripathi RBC 3.04 106/ul Critically low 4.20-5.40 [facility] Comment on above: Performed By: #### C BC ####[facility] Amsfarxnbq9764 [place] [address]Dr. Airam Tripathi WBC 7.7 103/ul Normal 4.0-11.0 [facility] Comment on above: Performed By: #### C BC ####[facility] Yjouxmqahi0635 [place] [address]Dr. Airam Tripathi PROF 14(COMP METB)on 023 Albumin [Mass/Vol] 3.2 g/dL Critically low 3.4-5.0 Th [facility] Comment on above: Performed By: #### C MP ####[facility] Qnfrrffhxj1687 [place] [address]Dr. Airam Tripathi Albumin/Globulin [Mass ratio] 0.9 {ratio} Normal [facility] Comment on above: Performed By: #### C MP ####[facility] Kgxvlgurnt7450 [place] [address]Dr. Airam Tripathi ALP [Catalytic activity/Vol] 135 U/L Critically high 46-116 [facility] Comment on above: Performed By: #### C MP ####[facility] Xupftckifz5401 [place] [address]Dr. Airam Tripathi ALT [Catalytic activity/Vol] 25 U/L Normal 14-59 [facility] Comment on above: Performed By: #### C MP ####[facility] Pdakigmbod2634 [place] [phone]. Airam Tripathi Anion gap [Moles/Vol] 9.1 mmol/L Normal [facility] Comment on above: Performed By: #### C MP ####[facility] Uabmllpljg6009 [place] [phone]. Airam Tripathi AST [Catalytic activity/Vol] 34 U/L Normal 15-37 [facility] Comment on above: Performed By: #### C MP ####[facility] Fsdzhctewp8914 [place] [phone]. Airam Tripathi Bilirubin [Mass/Vol] 0.3 mg/dL Normal 0.2-1.0 [facility] Comment on above: Performed By: #### C MP ####[facility] Lrwjpsabms4945 [place] [address]Dr. Airam Tripathi Calcium [Mass/Vol] 8.6 mg/dL Normal 8.5-10.1 [facility] Comment on above: Performed By: #### C MP ####[facility] Obvesgdyvb[address] [place], [place] [address]Dr. Airam Tripathi Chloride [Moles/Vol] 99 mmol/L Normal 98-107 [facility] Comment on above: Performed By: #### C MP ####[facility] Ivgexbvwms0657 [place] [phone]. Airam Tripathi CO2 [Moles/Vol] 29.1 mmol/L Normal 21.0-32.0 [facility] Comment on above: Performed By: #### C MP ####[facility] Caiocawabk0814 [place] [phone]. Airam Tripathi Creatinine [Mass/Vol] 1.40 mg/dL Critically high 0.55-1.02 [facility] Comment on above: Performed By: #### C MP ####[facility] Jiogwqrwry6932 [place] [address]Dr. Airam Tripathi EGFR-AF BARBADIAN 46 mL/min/1.73m2 Critically low >=60 [facility] Comment on above: Performed By: #### C MP ####[facility] Nplhxbexhi8985 [place] [phone]. Airam Tripathi EGFR-NON AF BARBADIAN 38 mL/min/1.73m2 Critically low >=60 [facility] Comment on above: Performed By: #### C MP ####[facility] Fzgskrhukl2154 [place] [phone]. Airam Tripathi Globulin (S) [Mass/Vol] 3.4 g/dL Normal [facility] Comment on above: Performed By: #### C MP ####[facility] Glviexjrcb5904 [place] [phone]. Airam Tripathi Glucose [Mass/Vol] 83 mg/dL Normal 74-106 [facility] Comment on above: Performed By: #### C MP ####[facility] Pqjewqdvkf1901 [place] [phone]. Airam Tripathi Potassium [Moles/Vol] 4.2 mmol/L Normal 3.5-5.1 [facility] Comment on above: Performed By: #### C MP ####[facility] Fyabhqzhwf5121 [place] [phone]. Airam Tripathi Protein [Mass/Vol] 6.6 g/dL Normal 6.4-8.2 [facility] Comment on above: Performed By: #### C MP ####[facility] Gqdejsczvo9422 [place] [phone]. Airam Tripathi Sodium [Moles/Vol] 133 mmol/L Critically low 136-145 Th [facility] Comment on above: Performed By: #### C MP ####[facility] Pzjtrlysyg9594 [place] [phone]. Airam Tripathi Urea nitrogen [Mass/Vol] 37.0 mg/dL Critically high 7.0-18.0 [facility] Comment on above: Performed By: #### C MP ####[facility] Rkmelvowgd8299 [place] [phone]. Airam Tripathi Urea nitrogen/Creatinine [Mass ratio] 26.4 mg/mg Normal [facility] Comment on above: Performed By: #### C MP ####[facility] Pvosdcomip2571 [place] [address]Dr. Airam Tripathi BNPon 06-18-2022 Natriuretic peptide B (Bld) [Mass/Vol] 5826.0 pg/mL Critically high <=900.0 [facility] Comment on above: Performed By: #### B SUPERVISOR DIALS, CMP ####[facility] Yxgqeoljex46[address] [place], [place] [address]Dr. Airam Tripathi CBC AUTO DIFFon 06-18-2022 BASO # 0.0 103/ul Normal 0.0-0.1 [facility] Comment on above: Performed By: #### C BC ####[facility] Mxdgeycqem62[address] [place], [place] [address]Dr. Airam Tripathi Basophils/100 WBC (Bld) 0.4 % Normal 0.2-2.0 [facility] Comment on above: Performed By: #### C BC ####[facility] Nkbewjvbwj768[address] [place], [place] [address]Dr. Airam Tripathi EO # 0.1 103/ul Normal 0.0-0.7 [facility] Comment on above: Performed By: #### C BC ####[facility] Atafhwliau664[address] [place], [place] [address]Dr. Airam Tripathi Eosinophils/100 WBC (Bld) 1.3 % Normal 0.9-7.0 [facility] Comment on above: Performed By: #### C BC ####[facility] Tqlazorsjm401[address] [place], [place] [address]Dr. Airam Tripathi Erythrocyte distribution width (RBC) [Ratio] 13.4 % Normal 11.0-15.0 [facility] Comment on above: Performed By: #### C BC ####[facility] Bvjcekbsnv368[address] [place], [place] [address]Dr. Airam Tripathi Hematocrit (Bld) [Volume fraction] 27.3 % Critically low 36.0-48.0 [facility] Comment on above: Performed By: #### C BC ####[facility] Zgjnhssxog018[address] [place], [place] [address]Dr. Airam Tripathi Hemoglobin (Bld) [Mass/Vol] 8.6 g/dL Critically low 12.0-16.0 [facility] Comment on above: Performed By: #### C BC ####[facility] Mntfhggsch5746 [place] [address]DrKianna Tripathi IG # 0.08 10e3/ul Critically high 0.00-0.03 [facility] Comment on above: Performed By: #### C BC ####[facility] Gglkoghzds6940 [place] [address]DrKianna Tripathi IG % 0.8 % Critically high 0.0-0.5 [facility] Comment on above: Performed By: #### C BC ####[facility] Cxqrcpuglc3835 [place] [address]DrKianna Tripathi LYMPH # 1.9 103/ul Normal 1.2-3.8 [facility] Comment on above: Performed By: #### C BC ####[facility] Hunfmyiees4629 [place] [address]DrKianna Tripathi Lymphocytes/100 WBC (Bld) 19.3 % Critically low 20.5-60.0 [facility] Comment on above: Performed By: #### C BC ####[facility] Uxmmvzpatt8522 [place] [address]DrKianna Tripathi MANUAL DIFF REQ NO Normal [facility] Comment on above: Performed By: #### C BC ####[facility] Hganjsjzjr7330 [place] [address]DrKianna Tripathi MCH (RBC) [Entitic mass] 29.6 pg Normal 26.7-34.0 [facility] Comment on above: Performed By: #### C BC ####[facility] Uetipzdcpu4414 [place] [phone] Tripathi MCHC (RBC) [Mass/Vol] 31.5 g/dL Normal 29.9-35.2 [facility] Comment on above: Performed By: #### C BC ####[facility] Cvxbnbueca7427 [place] [phone] Tripathi MCV (RBC) [Entitic vol] 93.8 fL Normal 81.0-99.0 [facility] Comment on above: Performed By: #### C BC ####[facility] Ojkeeznclv7403 [place] [phone]. Airam Tripathi MONO # 0.6 103/ul Normal 0.3-0.8 [facility] Comment on above: Performed By: #### C BC ####[facility] Cjorsrvifw8637 [place] [phone]. Airam Tripathi Monocytes/100 WBC (Bld) 6.5 % Normal 1.7-12.0 [facility] Comment on above: Performed By: #### C BC ####[facility] Yhqhcvghog6450 [place] [address]Dr. Airam Tripathi NEUT # 6.9 103/ul Critically high 1.4-6.5 [facility] Comment on above: Performed By: #### C BC ####[facility] Eibiyadeua5989 [place] [address]Dr. Airam Tripathi Neutrophils/100 WBC (Bld) 71.7 % Normal 43.0-75.0 [facility] Comment on above: Performed By: #### C BC ####[facility] Uqgicdoqxj5122 [place] [address]Dr. Airam Tripathi Platelet mean volume (Bld) [Entitic vol] 8.5 fL Critically low 9.5-13.5 [facility] Comment on above: Performed By: #### C BC ####[facility] Ccnotchgzg7028 [place] [phone]. Airam Tripathi PLT 295 103/ul Normal 150-450 [facility] Comment on above: Performed By: #### C BC ####[facility] Uguaksnyrc6975 [place] [phone]. Airam Tripathi RBC 2.91 106/ul Critically low 4.20-5.40 [facility] Comment on above: Performed By: #### C BC ####[facility] Yrhzfxqzir6419 [place] [phone]. Airam Tripathi WBC 9.7 103/ul Normal 4.0-11.0 [facility] Comment on above: Performed By: #### C BC ####[facility] Lzojhhrjxo9487 [place] [address]Dr. Airam Tripathi PROF 14(COMP METB)on 06-18- 022 Albumin [Mass/Vol] 2.8 g/dL Critically low 3.4-5.0 [facility] Comment on above: Performed By: #### B SUPERVISOR DIALS, CMP ####[facility] Vtbjatfudc4592 [place] [address]Dr. Airam Tripathi Albumin/Globulin [Mass ratio] 0.9 {ratio} Normal [facility] Comment on above: Performed By: #### B SUPERVISOR DIALS, CMP ####[facility] Fuljyrradl37[address] [place], [place] [address]Dr. Airam Tripathi ALP [Catalytic activity/Vol] 125 U/L Critically high 46-116 [facility] Comment on above: Performed By: #### B SUPERVISOR DIALS, CMP ####[facility] Zolzgkfpxt84[address] [place], [place] [address]Dr. Airam Tripathi ALT [Catalytic activity/Vol] 16 U/L Normal 14-59 [facility] Comment on above: Performed By: #### B SUPERVISOR DIALS, CMP ####[facility] Hqlhfzujlh8047[address] [place], [place] [address]Dr. Airam Tripathi Anion gap [Moles/Vol] 11.4 mmol/L Normal Th [facility] Comment on above: Performed By: #### B SUPERVISOR DIALS, CMP ####[facility] Vpvleuwvsa840[address] [place], [place] [address]Dr. Airam Tripathi AST [Catalytic activity/Vol] 23 U/L Normal 15-37 [facility] Comment on above: Performed By: #### B SUPERVISOR DIALS, CMP ####[facility] Crnrnaahsd157398 [address] [place], [place] [address]Dr. Airam Tripathi Bilirubin [Mass/Vol] 0.2 mg/dL Normal 0.2-1.0 [facility] Comment on above: Performed By: #### B SUPERVISOR DIALS, CMP ####[facility] Opnmjdopnj67119[address] [place], [place] [address]Dr. Airam Tripathi Calcium [Mass/Vol] 8.1 mg/dL Critically low 8.5-10.1 Th [facility] Comment on above: Performed By: #### B SUPERVISOR DIALS, CMP ####[facility] Togrdljhgt756[address] [place], [place] [address]Dr. Airam Tripathi Chloride [Moles/Vol] 96 mmol/L Critically low 98-107 [facility] Comment on above: Performed By: #### B SUPERVISOR DIALS, CMP ####[facility] Gxvzsyqvom854[address] [place], [place] [address]Dr. Airam Deuce CO2 [Moles/Vol] 26.6 mmol/L Normal 21.0-32.0 [facility] Comment on above: Performed By: #### B SUPERVISOR DIALS, CMP ####[facility] Iueejcoots119398 [address] [place], [place] [address]Dr. Airam Tripathi Creatinine [Mass/Vol] 1.31 mg/dL Critically high 0.55-1.02 [facility] Comment on above: Performed By: #### B SUPERVISOR DIALS, CMP ####[facility] Tspedhnzeu411[address] [place], [place] [address]Dr. Selenaneil Deuec EGFR-AF BAR[place]IAN 50 mL/min/1.73m2 Critically low >=60 [facility] Comment on above: Performed By: #### B SUPERVISOR DIALS, CMP ####[facility] Zpemgqhwti0436[address] [place], [place] [address]Dr. Selenaneil Deuce EGFR-NON AF [place] 41 mL/min/1.73m2 Critically low >=60 [facility] Comment on above: Performed By: #### B SUPERVISOR DIALS, CMP ####[facility] Prrvidnxop848[address] [place], [place] [address]Dr. Airam Tripathi Globulin (S) [Mass/Vol] 3.0 g/dL Normal [facility] Comment on above: Performed By: #### B SUPERVISOR DIALS, CMP ####[facility] Rglxdheypd956[address] [place], [place] [address]Dr. Airam Tripathi Glucose [Mass/Vol] 82 mg/dL Normal 74-106 [facility] Comment on above: Performed By: #### B SUPERVISOR DIALS, CMP ####[facility] Zprpyubrvo575[address] [place], [place] [address]Dr. Airam Tripathi Potassium [Moles/Vol] 4.0 mmol/L Normal 3.5-5.1 [facility] Comment on above: Performed By: #### B SUPERVISOR DIALS, CMP ####[facility] Yjatqmqefi0684 [place] [address]Dr. Airam Tripathi Protein [Mass/Vol] 5.8 g/dL Critically low 6.4-8.2 Th [facility] Comment on above: Performed By: #### B SUPERVISOR DIALS, CMP ####[facility] Cykzrlhtxm5924[address] [place], [place] [address]Dr. Selenaneil Tripathi Sodium [Moles/Vol] 130 mmol/L Critically low 136-145 Th [facility] Comment on above: Performed By: #### B SUPERVISOR DIALS, CMP ####[facility] Ottzrlrdve5712[address] [place], [place] [address]Dr. Airam Tripathi Urea nitrogen [Mass/Vol] 19.0 mg/dL Critically high 7.0-18.0 [facility] Comment on above: Performed By: #### B SUPERVISOR DIALS, CMP ####[facility] Yczukhbmlb084[address] [place], [place] [address]Dr. Airam Tripathi Urea nitrogen/Creatinine [Mass ratio] 14.5 mg/mg Normal [facility] Comment on above: Performed By: #### B SUPERVISOR DIALS, CMP ####[facility] Jcenpoukgc309[address] [place], [place] [address]Dr. Selenaneil Deuce BNPon 06-17-2022 Natriuretic peptide B (Bld) [Mass/Vol] 2510.0 pg/mL Critically high <=900.0 [facility] Comment on above: Performed By: #### B SUPERVISOR DIALS, CMP ####[facility] Ezoiimdoln8918[address] [place], [place] [address]Dr. Selenaneil Deuce CBC AUTO DIFFon 06-17-2022 BASO # 0.0 103/ul Normal 0.0-0.1 [facility] Comment on above: Performed By: #### C BC ####[facility] Vvhryjqymx087[address] [place], [place] [address]Dr. Airam Tripathi Basophils/100 WBC (Bld) 0.4 % Normal 0.2-2.0 [facility] Comment on above: Performed By: #### C BC ####[facility] Flkzhwqeuh74[address] [place], [place] [address]DrKianna Tripathi EO # 0.0 103/ul Normal 0.0-0.7 [facility] Comment on above: Performed By: #### C BC ####[facility] Phxvxdufuc890[address] [place], [place] [address]DrKianna Tripathi Eosinophils/100 WBC (Bld) 0.3 % Critically low 0.9-7.0 [facility] Comment on above: Performed By: #### C BC ####[facility] Rzvmdojisl625[address] [place], [place] [address]Dr. Airam Tripathi Erythrocyte distribution width (RBC) [Ratio] 13.6 % Normal 11.0-15.0 [facility] Comment on above: Performed By: #### C BC ####[facility] Fxnmfuxrks539[address] [place], [place] [address]DrKianna Tripathi Hematocrit (Bld) [Volume fraction] 28.9 % Critically low 36.0-48.0 [facility] Comment on above: Performed By: #### C BC ####[facility] Udzxzmzonz224[address] [place], [place] [address]DrKianna Tripathi Hemoglobin (Bld) [Mass/Vol] 8.9 g/dL Critically low 12.0-16.0 [facility] Comment on above: Performed By: #### C BC ####[facility] Yprznhcmkl255[address] [place], [place] [address]DrKianna Tripathi IG # 0.10 10e3/ul Critically high 0.00-0.03 [facility] Comment on above: Performed By: #### C BC ####[facility] Zqfxrvpdyg166398 [address] [place], [place] [address]DrKianna Tripathi IG % 1.3 % Critically high 0.0-0.5 [facility] Comment on above: Performed By: #### C BC ####[facility] Irjzdjwvjs57[address] [place], [place] [address]DrKianna Tripathi LYMPH # 0.7 103/ul Critically low 1.2-3.8 [facility] Comment on above: Performed By: #### C BC ####[facility] Xdhejmyqnt8885 [place] [address]Dr. Airam Tripathi Lymphocytes/100 WBC (Bld) 8.1 % Critically low 20.5-60.0 [facility] Comment on above: Performed By: #### C BC ####[facility] Qkenlmnkyq39[address] [place], [place] [address]Dr. Airam Tripathi MANUAL DIFF REQ NO Normal [facility] Comment on above: Performed By: #### C BC ####[facility] Wiwdvnsvlm679[address] [place], [place] [address]Dr. Airam Tripathi MCH (RBC) [Entitic mass] 29.4 pg Normal 26.7-34.0 [facility] Comment on above: Performed By: #### C BC ####[facility] Msmkfhibim0310[address] [place], [place] [address]Dr. Airam Tripathi MCHC (RBC) [Mass/Vol] 30.8 g/dL Normal 29.9-35.2 [facility] Comment on above: Performed By: #### C BC ####[facility] Sbuffhknzg978[address] [place], [place] [address]Dr. Airam Tripathi MCV (RBC) [Entitic vol] 95.4 fL Normal 81.0-99.0 [facility] Comment on above: Performed By: #### C BC ####[facility] Lycmbufviv3634[address] [place], [place] [address]Dr. Airam Tripathi MONO # 0.3 103/ul Normal 0.3-0.8 [facility] Comment on above: Performed By: #### C BC ####[facility] Ilffhmjmrv558[address] [place], [place] [address]Dr. Airam Tripathi Monocytes/100 WBC (Bld) 3.1 % Normal 1.7-12.0 [facility] Comment on above: Performed By: #### C BC ####[facility] Aifwbkkrbw990[address] [place], [place] [address]Dr. Airam Tripathi NEUT # 7.0 103/ul Critically high 1.4-6.5 [facility] Comment on above: Performed By: #### C BC ####[facility] Ttyxoyqijh4152 [place] [address]Dr. Airam Tripathi Neutrophils/100 WBC (Bld) 86.8 % Critically high 43.0-75.0 [facility] Comment on above: Performed By: #### C BC ####[facility] Mtooslxrrf6803 [place] [address]Dr. Airam Tripathi Platelet mean volume (Bld) [Entitic vol] 8.3 fL Critically low 9.5-13.5 [facility] Comment on above: Performed By: #### C BC ####[facility] Kiedkupaqv636[address] [place], [place] [address]Dr. Airam Tripathi PLT 279 103/ul Normal 150-450 [facility] Comment on above: Performed By: #### C BC ####[facility] Trmohwodhk77[address] [place], [place] [address]DrKianna Tripathi RBC 3.03 106/ul Critically low 4.20-5.40 [facility] Comment on above: Performed By: #### C BC ####[facility] Qnlgddreud9660[address] [place], [place] [address]DrKianna Tripathi WBC 8.0 103/ul Normal 4.0-11.0 [facility] Comment on above: Performed By: #### C BC ####[facility] Jbfvujojtz625[address] [place], [place] [address]DrKianna Tripathi PROF 14(COMP METB)on 022 Albumin [Mass/Vol] 2.8 g/dL Critically low 3.4-5.0 [facility] Comment on above: Performed By: #### B SUPERVISOR DIALS, CMP ####[facility] Dgjglnqevf0532[address] [place], [place] [address]Dr. Airam Tripathi Albumin/Globulin [Mass ratio] 0.9 {ratio} Normal [facility] Comment on above: Performed By: #### B SUPERVISOR DIALS, CMP ####[facility] Yvlrpavcyj228[address] [place], [place] [address]Dr. Airam Tripathi ALP [Catalytic activity/Vol] 136 U/L Critically high 46-116 [facility] Comment on above: Performed By: #### B SUPERVISOR DIALS, CMP ####[facility] Mkqmlwoxsy2102 [place] [address]Dr. Airam Tripathi ALT [Catalytic activity/Vol] 17 U/L Normal 14-59 [facility] Comment on above: Performed By: #### B SUPERVISOR DIALS, CMP ####[facility] Bftgcihqnt8315[address] [place], [place] [address]Dr. Airam Tripathi Anion gap [Moles/Vol] 12.9 mmol/L Normal Th [facility] Comment on above: Performed By: #### B SUPERVISOR DIALS, CMP ####[facility] Jetgnkhtin924[address] [place], [place] [address]Dr. Airam Tripathi AST [Catalytic activity/Vol] 24 U/L Normal 15-37 [facility] Comment on above: Performed By: #### B SUPERVISOR DIALS, CMP ####[facility] Ebrbizdhxr433[address] [place], [place] [address]Dr. Airam Deuce Bilirubin [Mass/Vol] 0.2 mg/dL Normal 0.2-1.0 [facility] Comment on above: Performed By: #### B SUPERVISOR DIALS, CMP ####[facility] Pvqyxdxcpn4850[address] [place], [place] [address]Dr. Airam Deuce Calcium [Mass/Vol] 8.7 mg/dL Normal 8.5-10.1 [facility] Comment on above: Performed By: #### B SUPERVISOR DIALS, CMP ####[facility] Hlnepwelvv9513[address] [place], [place] [address]Dr. Airam Deuce Chloride [Moles/Vol] 102 mmol/L Normal 98-107 [facility] Comment on above: Performed By: #### B SUPERVISOR DIALS, CMP ####[facility] Sjpwdlbsue229[address] [place], [place] [address]Dr. Selenaneil Deuce CO2 [Moles/Vol] 23.8 mmol/L Normal 21.0-32.0 [facility] Comment on above: Performed By: #### B SUPERVISOR DIALS, CMP ####[facility] [address]zbffjeb[address] [place], [place] [address]Dr. Airam Tripathi Creatinine [Mass/Vol] 1.08 mg/dL Critically high 0.55-1.02 [facility] Comment on above: Performed By: #### B SUPERVISOR DIALS, CMP ####[facility] Bkzrnmfzak[address] [place], [place] [address]Dr. Airam Tripathi EGFR-AF [place] >60 Normal >=60 [facility] Comment on above: Performed By: #### B SUPERVISOR DIALS, CMP ####[facility] Spmfmwzdav646[address] [place], [place] [address]Dr. Airam Tripathi EGFR-NON AF [place] 52 mL/min/1.73m2 Critically low >=60 [facility] Comment on above: Performed By: #### B SUPERVISOR DIALS, CMP ####[facility] Jymrgapdky04[address] [place], [place] [address]Dr. Airam Tripathi Globulin (S) [Mass/Vol] 3.2 g/dL Normal [facility] Comment on above: Performed By: #### B SUPERVISOR DIALS, CMP ####[facility] Xdqqktgutz314[address] [place], [place] [address]Dr. Airam Tripathi Glucose [Mass/Vol] 99 mg/dL Normal 74-106 [facility] Comment on above: Performed By: #### B SUPERVISOR DIALS, CMP ####[facility] Iuowifdpvp6675[address] [place], [place] [address]Dr. Airam Tripathi Potassium [Moles/Vol] 4.7 mmol/L Normal 3.5-5.1 [facility] Comment on above: Performed By: #### B SUPERVISOR DIALS, CMP ####[facility] Ermyhqjjqy[address] [place], [place] [address]Dr. Airam Tripathi Protein [Mass/Vol] 6.0 g/dL Critically low 6.4-8.2 [facility] Comment on above: Performed By: #### B SUPERVISOR DIALS, CMP ####[facility] Msoqobodxq423[address] [place], [place] [address]Dr. Airam Tripathi Sodium [Moles/Vol] 134 mmol/L Critically low 136-145 Th [facility] Comment on above: Performed By: #### B SUPERVISOR DIALS, CMP ####[facility] [address] [place] [address]Dr. Airam Tripathi Urea nitrogen [Mass/Vol] 19.0 mg/dL Critically high 7.0-18.0 [facility] Comment on above: Performed By: #### B SUPERVISOR DIALS, CMP ####[facility] Pczznnflah[address] [place], [place] [address]Dr. Airam Tripathi Urea nitrogen/Creatinine [Mass ratio] 17.6 mg/mg Normal [facility] Comment on above: Performed By: #### B SUPERVISOR DIALS, CMP ####[facility] Cvskmvxfhp39[address] [place], [place] [address]Dr. Airam Tripathi PROTIMEon 06-17-2022 INR Coag (PPP) [Relative time] 1.00 {INR} Normal [facility] Comment on above: Performed By: #### P T ####[facility] Nqcdfvmfix34[address] [place], [place] [address]Dr. Airam Tripathi INR GUIDELINES SEE BELOW Normal [facility] Comment on above: Result Comment: SIDRA RED INR: 2.0 - 3.0 CONDITIONS NOT LISTED BELOW 2.5 - 3.5 FOR PROSTHETIC HEART VALVE REPLACEMENT 2.5 - 3.5 RECURRENT THROMBOSIS Performed By: #### P T ####[facility] Ikvivgqwjq6037[address] [place], [place] [address]Dr. Airam Tripathi PT Coag (PPP) [Time] 10.8 s Normal 9.0-11.6 [facility] Comment on above: Performed By: #### P T ####[facility] Ecfpfjekeq2737[address] [place], [place] [address]Dr. Airam Tripathi PTTon 06-17-2022 aPTT Coag (Bld) [Time] 27.2 s Normal 22.3-36.2 Th [facility] Comment on above: Performed By: #### P TT ####[facility] Sepsyvfywb11[address] [place], [place] [address]Dr. Airam Tripathi BNPon 06-16-2022 Natriuretic peptide B (Bld) [Mass/Vol] 2293.0 pg/mL Critically high <=900.0 [facility] Comment on above: Performed By: #### C MP, BNP ####[facility] [address]wo[address]dbwpn[address] [place] [id number]. Airam Tripathi CBC AUTO DIFFon 06-16-2022 BASO # 0.0 103/ul Normal 0.0-0.1 [facility] Comment on above: Performed By: #### C BC ####[facility] [address]uedeze[address] [place] [address]Dr. Airam Tripathi Basophils/100 WBC (Bld) 0.4 % Normal 0.2-2.0 [facility] Comment on above: Performed By: #### C BC ####[facility] Ivjssybvyh[address] [place], [place] [address]Dr. Airam Tripathi EO # 0.2 103/ul Normal 0.0-0.7 [facility] Comment on above: Performed By: #### C BC ####[facility] Yeruvcljzb7547[address] [place], [place] [address]Dr. Airam Tripathi Eosinophils/100 WBC (Bld) 3.0 % Normal 0.9-7.0 [facility] Comment on above: Performed By: #### C BC ####[facility] Togabatqci044[address] [place], [place] [address]Dr. Airam Tripathi Erythrocyte distribution width (RBC) [Ratio] 13.3 % Normal 11.0-15.0 [facility] Comment on above: Performed By: #### C BC ####[facility] Fwtmujeedt90[address] [place], [place] [address]Dr. Airam Tripathi Hematocrit (Bld) [Volume fraction] 26.2 % Critically low 36.0-48.0 [facility] Comment on above: Performed By: #### C BC ####[facility] Nsakgsolfs220[address] [place], [place] [address]Dr. Airam Tripathi Hemoglobin (Bld) [Mass/Vol] 8.3 g/dL Critically low 12.0-16.0 [facility] Comment on above: Performed By: #### C BC ####[facility] Xohnnnpqdc3523[address] [place], [place] [address]Dr. Selenaneil Tripathi IG # 0.08 10e3/ul Critically high 0.00-0.03 [facility] Comment on above: Performed By: #### C BC ####[facility] Zq[address]iztpoe[address] [place] [address]Dr. Selenaneil Tripathi IG % 1.1 % Critically high 0.0-0.5 [facility] Comment on above: Performed By: #### C BC ####[facility] Rxihglwzsg4[address] [place] [address]Dr. Airam Deuce LYMPH # 1.2 103/ul Normal 1.2-3.8 [facility] Comment on above: Performed By: #### C BC ####[facility] Jmuuhvgvla[address] [place] [address]DrKianna Selenaneil Tripathi Lymphocytes/100 WBC (Bld) 17.3 % Critically low 20.5-60.0 [facility] Comment on above: Performed By: #### C BC ####[facility] Lkwhjsnbzm357[address] [place], [place] [address]Dr. Selenaneil Tripathi MANUAL DIFF REQ NO Normal [facility] Comment on above: Performed By: #### C BC ####[facility] Umdyleuwve[address] [place] [id number]. Airam Deuce MCH (RBC) [Entitic mass] 30.3 pg Normal 26.7-34.0 [facility] Comment on above: Performed By: #### C BC ####[facility] Lppexbvdur[address] [place], [place] [id number]. Airam Deuce MCHC (RBC) [Mass/Vol] 31.7 g/dL Normal 29.9-35.2 [facility] Comment on above: Performed By: #### C BC ####[facility] Tatjmufpro[address] [place], [place] [id number] Airam Deuce MCV (RBC) [Entitic vol] 95.6 fL Normal 81.0-99.0 [facility] Comment on above: Performed By: #### C BC ####[facility] Jumvqugidq[address] [place] [address]DrKianna Tripathi MONO # 0.5 103/ul Normal 0.3-0.8 [facility] Comment on above: Performed By: #### C BC ####[facility] Llduwlhitg4494 [place] [id number]. Airam Tripathi Monocytes/100 WBC (Bld) 7.1 % Normal 1.7-12.0 [facility] Comment on above: Performed By: #### C BC ####[facility] Ukpdageomx5[address] [place] [id number]. Airam Tripathi NEUT # 5.0 103/ul Normal 1.4-6.5 [facility] Comment on above: Performed By: #### C BC ####[facility] Nzpljwckye78[address] [place] [phone]. Airam Tripathi Neutrophils/100 WBC (Bld) 71.1 % Normal 43.0-75.0 [facility] Comment on above: Performed By: #### C BC ####[facility] Xnfbbqzhqn0598 [place] [phone]. Airam Tripathi Platelet mean volume (Bld) [Entitic vol] 8.2 fL Critically low 9.5-13.5 [facility] Comment on above: Performed By: #### C BC ####[facility] Vmoqfogshf4034 [place] [phone]. Airam Tripathi PLT 247 103/ul Normal 150-450 [facility] Comment on above: Performed By: #### C BC ####[facility] Vlqfpncqbn3358 [place] [phone]. Airam Tripathi RBC 2.74 106/ul Critically low 4.20-5.40 [facility] Comment on above: Performed By: #### C BC ####[facility] Crhvqdaikb6[address] [place] [phone]. Airam Tripathi WBC 7.1 103/ul Normal 4.0-11.0 [facility] Comment on above: Performed By: #### C BC ####[facility] Mpjfkgacrc00[address] [place] [phone]. Airam Tripathi CTA CHEST WO W CONon 022 CTA CHEST WO W CON Normal [facility] PROF 14(COMP METB)on 022 Albumin [Mass/Vol] 2.6 g/dL Critically low 3.4-5.0 [facility] Comment on above: Performed By: #### C MP, BNP ####[facility] Kirxgdospq[address] [place] [address]Dr. Airam Tripathi Albumin/Globulin [Mass ratio] 0.8 {ratio} Normal [facility] Comment on above: Performed By: #### C MP, BNP ####[facility] Aawqdkftmh[address] [place] [address]Dr. Airam Tripathi ALP [Catalytic activity/Vol] 130 U/L Critically high 46-116 [facility] Comment on above: Performed By: #### C MP, BNP ####[facility] Bbhfuoddre36[address] [place], [place] [address]Dr. Airam Tripathi ALT [Catalytic activity/Vol] 12 U/L Critically low 14-59 [facility] Comment on above: Performed By: #### C MP, BNP ####[facility] Whhbgrkgxd465[address] [place], [place] [address]Dr. Airma Tripathi Anion gap [Moles/Vol] 11.8 mmol/L Normal [facility] Comment on above: Performed By: #### C MP, BNP ####[facility] Wfwqfhuntg7[address] [place], [place] [address]Dr. Airam Tripathi AST [Catalytic activity/Vol] 22 U/L Normal 15-37 [facility] Comment on above: Performed By: #### C MP, BNP ####[facility] Rpbeogzxfa99[address] [place], [place] [address]Dr. Airam Tripathi Bilirubin [Mass/Vol] 0.2 mg/dL Normal 0.2-1.0 [facility] Comment on above: Performed By: #### C MP, BNP ####[facility] Nteujleuds16[address] [place], [place] [address]Dr. Airam Tripathi Calcium [Mass/Vol] 8.0 mg/dL Critically low 8.5-10.1 Th [facility] Comment on above: Performed By: #### C MP, BNP ####[facility] Pbpykoywbb[address] [place] [address]Dr. Airam Tripathi Chloride [Moles/Vol] 104 mmol/L Normal 98-107 [facility] Comment on above: Performed By: #### C MP, BNP ####[facility] Uunmmomxkj[address] [place] [address]Dr. Airam Tripathi CO2 [Moles/Vol] 22.8 mmol/L Normal 21.0-32.0 [facility] Comment on above: Performed By: #### C MP, BNP ####[facility] L[address]kckfcaf25[address] [place] [address]Dr. Airam Tripathi Creatinine [Mass/Vol] 1.07 mg/dL Critically high 0.55-1.02 [facility] Comment on above: Performed By: #### C MP, BNP ####[facility] Uzqsnilxsj135[address] [place], [place] [address]Dr. Airam Tripathi EGFR-AF BARBADIAN >60 Normal >=60 [facility] Comment on above: Performed By: #### C MP, BNP ####[facility] Rgpvituhjb660[address] [place], [place] [address]Dr. Airam Tripathi EGFR-NON AF BARBADIAN 52 mL/min/1.73m2 Critically low >=60 [facility] Comment on above: Performed By: #### C MP, BNP ####[facility] Axsgvgrivf39[address] [place] [address]Dr. Airam Tripathi Globulin (S) [Mass/Vol] 3.1 g/dL Normal [facility] Comment on above: Performed By: #### C MP, BNP ####[facility] Qmncyotrtn76[address] [place] [address]Dr. Airam Tripathi Glucose [Mass/Vol] 85 mg/dL Normal 74-106 [facility] Comment on above: Performed By: #### C MP, BNP ####[facility] Mwsqgnxjlt4614 [place] [address]Dr. Airam Tripathi Potassium [Moles/Vol] 4.6 mmol/L Normal 3.5-5.1 [facility] Comment on above: Performed By: #### C MP, BNP ####[facility] Njrcwbsvrr089[address] [place], [place] [address]Dr. Airam Tripathi Protein [Mass/Vol] 5.7 g/dL Critically low 6.4-8.2 Th [facility] Comment on above: Performed By: #### C MP, BNP ####[facility] Nvwfufctgi82[address] [place], [place] [address]Dr. Airam Tripathi Sodium [Moles/Vol] 134 mmol/L Critically low 136-145 Th [facility] Comment on above: Performed By: #### C MP, BNP ####[facility] Qatidhkxfw638[address] [place], [place] [address]Dr. Selenaneil Tripathi Urea nitrogen [Mass/Vol] 24.0 mg/dL Critically high 7.0-18.0 [facility] Comment on above: Performed By: #### C MP, BNP ####[facility] Mbpisvmxgy8517[address] [place], [place] [address]Dr. Airam Tripathi Urea nitrogen/Creatinine [Mass ratio] 22.4 mg/mg Normal [facility] Comment on above: Performed By: #### C MP, BNP ####[facility] Abltyhhvgy107[address] [place], [place] [address]Dr. Airam Tripathi BNPon 06-15-2022 Natriuretic peptide B (Bld) [Mass/Vol] 934.0 pg/mL Critically high <=900.0 [facility] Comment on above: Performed By: #### C MP, BNP ####[facility] Gcocewnjmz025[address] [place], [place] [address]Dr. Selenaneil Deuce CBC AUTO DIFFon 06-15-2022 BASO # 0.0 103/ul Normal 0.0-0.1 [facility] Comment on above: Performed By: #### C BC ####[facility] Jeoguvfhpi305[address] [place], [place] [address]Dr. Selenaneil Tripathi Basophils/100 WBC (Bld) 0.2 % Normal 0.2-2.0 [facility] Comment on above: Performed By: #### C BC ####[facility] Ztuvaydqdt55[address] [place], [place] [address]Dr. Airam Tripathi EO # 0.1 103/ul Normal 0.0-0.7 [facility] Comment on above: Performed By: #### C BC ####[facility] U[address]ujxeeft[address] [place] [address]Dr. Airam Deuce Eosinophils/100 WBC (Bld) 2.1 % Normal 0.9-7.0 [facility] Comment on above: Performed By: #### C BC ####[facility] Mrmebyraef32[address] [place], [place] [address]Dr. Airam Deuce Erythrocyte distribution width (RBC) [Ratio] 12.9 % Normal 11.0-15.0 [facility] Comment on above: Performed By: #### C BC ####[facility] Ptbmrwshds886[address] [place], [place] [address]Dr. Airam Tripathi Hematocrit (Bld) [Volume fraction] 24.9 % Critically low 36.0-48.0 [facility] Comment on above: Performed By: #### C BC ####[facility] Afveroiyxd213098 [address] [place], [place] [address]Dr. Airam Tripathi Hemoglobin (Bld) [Mass/Vol] 7.9 g/dL Critically low 12.0-16.0 [facility] Comment on above: Performed By: #### C BC ####[facility] Dbsuuapzbo16[address] [place], [place] [address]Dr. Airam Tripathi IG # 0.05 10e3/ul Critically high 0.00-0.03 [facility] Comment on above: Performed By: #### C BC ####[facility] Hbqxomiira008398 [address] [place], [place] [address]Dr. Airam Tripathi IG % 0.8 % Critically high 0.0-0.5 [facility] Comment on above: Performed By: #### C BC ####[facility] Rilvtaakaa27[address] [place], [place] [address]DrKianna Tripathi LYMPH # 0.9 103/ul Critically low 1.2-3.8 [facility] Comment on above: Performed By: #### C BC ####[facility] Pwsikiutnk5735[address] [place], [place] [address]DrKianna Tripathi Lymphocytes/100 WBC (Bld) 13.7 % Critically low 20.5-60.0 [facility] Comment on above: Performed By: #### C BC ####[facility] Xgeadjuwbn400[address] [place], [place] [address]DrKianna Tripathi MANUAL DIFF REQ NO Normal [facility] Comment on above: Performed By: #### C BC ####[facility] Jwnqnudwkg0336 [place] [address]DrKianna Tripathi MCH (RBC) [Entitic mass] 30.2 pg Normal 26.7-34.0 [facility] Comment on above: Performed By: #### C BC ####[facility] Gkhygbrngn4980[address] [place], [place] [address]DrKianna Tripathi MCHC (RBC) [Mass/Vol] 31.7 g/dL Normal 29.9-35.2 [facility] Comment on above: Performed By: #### C BC ####[facility] Opuwnzeasf485[address] [place], [place] [address]DrKianna Tripathi MCV (RBC) [Entitic vol] 95.0 fL Normal 81.0-99.0 [facility] Comment on above: Performed By: #### C BC ####[facility] Salioeciil228[address] [place], [place] [address]DrKianna Tripathi MONO # 0.4 103/ul Normal 0.3-0.8 [facility] Comment on above: Performed By: #### C BC ####[facility] Bhpzoggnbh132[address] [place], [place] [address]DrKianna Tripathi Monocytes/100 WBC (Bld) 6.7 % Normal 1.7-12.0 [facility] Comment on above: Performed By: #### C BC ####[facility] Uxhygxjnup7870[address] [place], [place] [address]DrKianna Tripathi NEUT # 5.0 103/ul Normal 1.4-6.5 [facility] Comment on above: Performed By: #### C BC ####[facility] Fsxbuhfsyo140[address] [place], [place] [address]DrKianna Tripathi Neutrophils/100 WBC (Bld) 76.5 % Critically high 43.0-75.0 [facility] Comment on above: Performed By: #### C BC ####[facility] Alwmmutqox724[address] [place], [place] [address]Dr. Airam Tripathi Platelet mean volume (Bld) [Entitic vol] 8.4 fL Critically low 9.5-13.5 [facility] Comment on above: Performed By: #### C BC ####[facility] Mxsdsinqkr8077[address] [place], [place] [address]Dr. Airam Deuce PLT 202 103/ul Normal 150-450 [facility] Comment on above: Performed By: #### C BC ####[facility] Ntlyestsqa138[address] [place], [place] [address]Dr. Airam Deuce RBC 2.62 106/ul Critically low 4.20-5.40 [facility] Comment on above: Performed By: #### C BC ####[facility] Yaoxmsexxj4913[address] [place], [place] [address]Dr. Airam Deuce WBC 6.6 103/ul Normal 4.0-11.0 [facility] Comment on above: Performed By: #### C BC ####[facility] Qwcnvheoxs614[address] [place], [place] [address]DrKianna Airam Deuce OSMOLALITYon 06-15-2022 Osmolality [Osmolality] 269 mosm/kg Critically low 275-295 [facility] Comment on above: Performed By: #### O SMO ####[facility] Fwoinhrqed3030[address] [place], [place] [address]DrKianna Selenaneil Tripathi PROF 14(COMP METB)on 022 Albumin [Mass/Vol] 2.5 g/dL Critically low 3.4-5.0 e [facility] Comment on above: Performed By: #### C MP, BNP ####[facility] Gyyfynymzf9360[address] [place], [place] [address]Dr. Airam Tripathi Albumin/Globulin [Mass ratio] 0.9 {ratio} Normal [facility] Comment on above: Performed By: #### C MP, BNP ####[facility] Zjcqitjtxu[address] [place] [address]Dr. Airam Tripathi ALP [Catalytic activity/Vol] 128 U/L Critically high 46-116 [facility] Comment on above: Performed By: #### C MP, BNP ####[facility] Zhuggldqrq914[address] [place], [place] [address]Dr. Airam Tripathi ALT [Catalytic activity/Vol] 14 U/L Normal 14-59 [facility] Comment on above: Performed By: #### C MP, BNP ####[facility] Exwekhxibe194[address] [place], [place] [address]Dr. Airam Tripathi Anion gap [Moles/Vol] 10.4 mmol/L Normal [facility] Comment on above: Performed By: #### C MP, BNP ####[facility] Wifulwisku425[address] [place], [place] [address]Dr. Airam Tripathi AST [Catalytic activity/Vol] 23 U/L Normal 15-37 [facility] Comment on above: Performed By: #### C MP, BNP ####[facility] Szwpzhxzzu928[address] [place], [place] [address]Dr. Airam Tripathi Bilirubin [Mass/Vol] 0.2 mg/dL Normal 0.2-1.0 [facility] Comment on above: Performed By: #### C MP, BNP ####[facility] Kowupudztr64[address] [place], [place] [address]Dr. Airam Tripathi Calcium [Mass/Vol] 7.4 mg/dL Critically low 8.5-10.1 [facility] Comment on above: Performed By: #### C MP, BNP ####[facility] Rpjmynaqkc04[address] [place], [place] [address]Dr. Airam Tripathi Chloride [Moles/Vol] 99 mmol/L Normal 98-107 [facility] Comment on above: Performed By: #### C MP, BNP ####[facility] Ohnyxqgslf5775[address] [place], [place] [address]Dr. Airam Tripathi CO2 [Moles/Vol] 24.1 mmol/L Normal 21.0-32.0 [facility] Comment on above: Performed By: #### C MP, BNP ####[facility] Axnsuzpzou67[address] [place] [id number]. Airam Tripathi Creatinine [Mass/Vol] 1.45 mg/dL Critically high 0.55-1.02 [facility] Comment on above: Performed By: #### C MP, BNP ####[facility] Qdvgsxfclq027[address] [place], [place] [address]Dr. Airam Tripathi EGFR-AF BARBADIAN 45 mL/min/1.73m2 Critically low >=60 [facility] Comment on above: Performed By: #### C MP, BNP ####[facility] Rujroqbeon615[address] [place], [place] [address]Dr. Airam Tripathi EGFR-NON AF BARBADIAN 37 mL/min/1.73m2 Critically low >=60 [facility] Comment on above: Performed By: #### C MP, BNP ####[facility] Vklknjobhf905[address] [place], [place] [address]Dr. Airam Tripathi Globulin (S) [Mass/Vol] 2.8 g/dL Normal [facility] Comment on above: Performed By: #### C MP, BNP ####[facility] Lyekjzgvqa505[address] [place], [place] [address]Dr. Airam Tripathi Glucose [Mass/Vol] 82 mg/dL Normal 74-106 [facility] Comment on above: Performed By: #### C MP, BNP ####[facility] Fruxflegot800[address] [place], [place] [address]Dr. Airam Tripathi Potassium [Moles/Vol] 4.5 mmol/L Normal 3.5-5.1 [facility] Comment on above: Performed By: #### C MP, BNP ####[facility] Egzbsumyxz304[address] [place], [place] [address]Dr. Airam Tripathi Protein [Mass/Vol] 5.3 g/dL Critically low 6.4-8.2 [facility] Comment on above: Performed By: #### C MP, BNP ####[facility] Crbrmewuoj9933[address] [place], [place] [address]Dr. Airam Tripathi Sodium [Moles/Vol] 129 mmol/L Critically low 136-145 Th [facility] Comment on above: Performed By: #### C MP, BNP ####[facility] Fsacoqvdun4448[address] [place], [place] [address]Dr. Airam Tripathi Urea nitrogen [Mass/Vol] 35.0 mg/dL Critically high 7.0-18.0 [facility] Comment on above: Performed By: #### C MP, BNP ####[facility] Ouwlelsglz387[address] [place], [place] [address]Dr. Selenaneil Tripathi Urea nitrogen/Creatinine [Mass ratio] 24.1 mg/mg Normal [facility] Comment on above: Performed By: #### C MP, BNP ####[facility] Uzjmmlgkrk867[address] [place], [place] [address]Dr. Airam Tripathi T3, TOTAL (TRIIODOTHYRONINE) on 06-15-2022 T3, TOTAL 113 ng/dL Normal 71-180 [facility] Comment on above: Performed By: #### T 3TOTAL ####[facility] Txqqmkjzna706[address] [place], [place] [address]Dr. Airam Tripathi BNPon 06-14-2022 Natriuretic peptide B (Bld) [Mass/Vol] 1024.0 pg/mL Critically high <=900.0 [facility] Comment on above: Performed By: #### B SUPERVISOR DIALS, CMP ####[facility] Pvmhckyynz499[address] [place], [place] [address]Dr. Airam Tripathi CARDIAC CONSUELO 3-6on 2 CK [Catalytic activity/Vol] 116 U/L Normal 26-192 [facility] Comment on above: Performed By: #### C MREP ####[facility] Nmhngaqpkq2368[address] [place], [place] [address]Dr. Airam Deuce CK.MB [Mass/Vol] ng/mL Normal <=3.60 [facility] Comment on above: Performed By: #### C MREP ####[facility] Mpvlwqruid[address] [place], [place] [address]Dr. Airam Tripathi HSTROP 6.0 pg/mL Normal 4.0-51.3 [facility] Comment on above: Result Comment: CUT- OFF POINTS HAVE BEEN ESTABLISHED BASED ON THE FOURTH UNIVERSAL DEFINITIONS OF MYOCARDIALINFARCTION. THE UPPER REFERENCE LIMIT (URL) OF TROPONIN, DEFINED THE 99TH PERCENTILE OFcTnI DISTRIBUTION IN A REFERENCE POPULATION, HAS BEEN CONFIRMED THE DECISION THRESHOLDFOR DE DIAGNOSIS. Performed By: #### C MREP ####[facility] [address]kwft[address]zlj[address] [place] [address]Dr. Airam Tripathi CBC AUTO DIFFon 06-14-2022 BASO # 0.0 103/ul Normal 0.0-0.1 [facility] Comment on above: Performed By: #### C BC ####[facility] [address]zwhqlpylg[address] [place] [address]Dr. Airam Tripathi Basophils/100 WBC (Bld) 0.3 % Normal 0.2-2.0 [facility] Comment on above: Performed By: #### C BC ####[facility] Devqkactzo9[address] [place], [place] [address]Dr. Airam Tripathi EO # 0.2 103/ul Normal 0.0-0.7 [facility] Comment on above: Performed By: #### C BC ####[facility] Jnsupxekxd38[address] [place] [address]Dr. Airam Tripathi Eosinophils/100 WBC (Bld) 2.0 % Normal 0.9-7.0 [facility] Comment on above: Performed By: #### C BC ####[facility] [address]xvyygdpjp[address] [place] [address]Dr. Airam Tripathi Erythrocyte distribution width (RBC) [Ratio] 12.8 % Normal 11.0-15.0 [facility] Comment on above: Performed By: #### C BC ####[facility] [address]rsh[address] [place] [address]Dr. Airam Tripathi Hematocrit (Bld) [Volume fraction] 27.4 % Critically low 36.0-48.0 [facility] Comment on above: Performed By: #### C BC ####[facility] Hfntltlhoo[address] [place], [place] [address]Dr. Airam Tripathi Hemoglobin (Bld) [Mass/Vol] 8.7 g/dL Critically low 12.0-16.0 [facility] Comment on above: Performed By: #### C BC ####[facility] Tejlzaf[address]xi[address] [place] [id number]. Airam Tripathi IG # 0.11 10e3/ul Critically high 0.00-0.03 [facility] Comment on above: Performed By: #### C BC ####[facility] Bvunuqgdqp6[address] [place] [phone]. Airam Tripathi IG % 1.1 % Critically high 0.0-0.5 [facility] Comment on above: Performed By: #### C BC ####[facility] Httmvuedaj[address] [place], [place] [address]Dr. Airam Tripathi LYMPH # 0.9 103/ul Critically low 1.2-3.8 [facility] Comment on above: Performed By: #### C BC ####[facility] Frvvmxyfan63[address] [place], [place] [address]Dr. Selenaneil Tripathi Lymphocytes/100 WBC (Bld) 9.7 % Critically low 20.5-60.0 [facility] Comment on above: Performed By: #### C BC ####[facility] Lilwpshdsm[address] [place], [place] [address]Dr. Airam Tripathi MANUAL DIFF REQ NO Normal [facility] Comment on above: Performed By: #### C BC ####[facility] Vqjuvbcfij48[address] [place], [place] [address]Dr. Airam Tripathi MCH (RBC) [Entitic mass] 30.0 pg Normal 26.7-34.0 [facility] Comment on above: Performed By: #### C BC ####[facility] Stmwcxrzit39[address] [place], [place] [address]Dr. Airam Tripathi MCHC (RBC) [Mass/Vol] 31.8 g/dL Normal 29.9-35.2 [facility] Comment on above: Performed By: #### C BC ####[facility] [address]ys[address]zahzqa[address] [place] [address]Dr. Airam Tripathi MCV (RBC) [Entitic vol] 94.5 fL Normal 81.0-99.0 [facility] Comment on above: Performed By: #### C BC ####[facility] Bzdtskfzfk[address] [place] [id number]. Airam Tripathi MONO # 0.6 103/ul Normal 0.3-0.8 [facility] Comment on above: Performed By: #### C BC ####[facility] Ipoxamhher1426 [place] [phone]. Airam Tripathi Monocytes/100 WBC (Bld) 5.7 % Normal 1.7-12.0 [facility] Comment on above: Performed By: #### C BC ####[facility] Bdumztryqj6493 [place] [phone]. Airam Tripathi NEUT # 7.8 103/ul Critically high 1.4-6.5 [facility] Comment on above: Performed By: #### C BC ####[facility] Crjgvyipxz[address] [place] [address]Dr. Airam Tripathi Neutrophils/100 WBC (Bld) 81.2 % Critically high 43.0-75.0 [facility] Comment on above: Performed By: #### C BC ####[facility] Kkxlkudzei27[address] [place] [address]Dr. Airam Tripathi Platelet mean volume (Bld) [Entitic vol] 8.6 fL Critically low 9.5-13.5 [facility] Comment on above: Performed By: #### C BC ####[facility] Hegwhwqmea19[address] [place] [phone]. Airam Tripathi PLT 283 103/ul Normal 150-450 [facility] Comment on above: Performed By: #### C BC ####[facility] Urgltqfhju[address] [place], [place] [address]Dr. Airam Tripathi RBC 2.90 106/ul Critically low 4.20-5.40 [facility] Comment on above: Performed By: #### C BC ####[facility] Skrtdircna35[address] [place] [phone]. Airam Tripathi WBC 9.6 103/ul Normal 4.0-11.0 [facility] Comment on above: Performed By: #### C BC ####[facility] Fjuvjfiued[address] [place] [address]Dr. Airam Tripathi OSMOLALITYon 06-14-2022 Osmolality [Osmolality] 273 mosm/kg Critically low 275-295 [facility] Comment on above: Performed By: #### O SMO ####[facility] Pxgyihtbrb639[address] [place], [place] [address]Dr. Airam Tripathi PROF 14(COMP METB)on 022 Albumin [Mass/Vol] 3.2 g/dL Critically low 3.4-5.0 [facility] Comment on above: Performed By: #### B SUPERVISOR DIALS, CMP ####[facility] Lmltpigymh344[address] [place], [place] [address]Dr. Airam Tripathi Albumin/Globulin [Mass ratio] 1.0 {ratio} Normal [facility] Comment on above: Performed By: #### B SUPERVISOR DIALS, CMP ####[facility] Lfmzjhxvun[address] [place], [place] [address]Dr. Airam Tripathi ALP [Catalytic activity/Vol] 154 U/L Critically high 46-116 [facility] Comment on above: Performed By: #### B SUPERVISOR DIALS, CMP ####[facility] Brhrhgdvzo2027[address] [place], [place] [address]Dr. Airam Tripathi ALT [Catalytic activity/Vol] 17 U/L Normal 14-59 [facility] Comment on above: Performed By: #### B SUPERVISOR DIALS, CMP ####[facility] Gfyaicriij24[address] [place] [address]Dr. Airam Tripathi Anion gap [Moles/Vol] 12.0 mmol/L Normal [facility] Comment on above: Performed By: #### B SUPERVISOR DIALS, CMP ####[facility] Mqfghcidhy23[address] [place] [address]Dr. Airam Tripathi AST [Catalytic activity/Vol] 25 U/L Normal 15-37 [facility] Comment on above: Performed By: #### B SUPERVISOR DIALS, CMP ####[facility] Tbvkdgchnf467[address] [place], [place] [address]Dr. Airam Tripathi Bilirubin [Mass/Vol] 0.3 mg/dL Normal 0.2-1.0 [facility] Comment on above: Performed By: #### B SUPERVISOR DIALS, CMP ####[facility] Cdyumxlbzo3797 [place] [phone]. Airam Tripathi Calcium [Mass/Vol] 7.6 mg/dL Critically low 8.5-10.1 [facility] Comment on above: Performed By: #### B SUPERVISOR DIALS, CMP ####[facility] Hwuvwitfnt[address] [place], [place] [address]Dr. Airam Tripathi Chloride [Moles/Vol] 92 mmol/L Critically low 98-107 [facility] Comment on above: Performed By: #### B SUPERVISOR DIALS, CMP ####[facility] Souvidgspi317[address] [place], [place] [address]Dr. Airam Tripathi CO2 [Moles/Vol] 25.2 mmol/L Normal 21.0-32.0 [facility] Comment on above: Performed By: #### B SUPERVISOR DIALS, CMP ####[facility] Pqpexxpnby0726[address] [place], [place] [address]Dr. Airam Tripathi Creatinine [Mass/Vol] 1.83 mg/dL Critically high 0.55-1.02 [facility] Comment on above: Performed By: #### B SUPERVISOR DIALS, CMP ####[facility] Mlvqdgviel6[address] [place], [place] [address]Dr. Airam Tripathi EGFR-AF BARBADIAN 34 mL/min/1.73m2 Critically low >=60 [facility] Comment on above: Performed By: #### B SUPERVISOR DIALS, CMP ####[facility] Zlmokpqfyy655[address] [place], [place] [address]Dr. Airam Tripathi EGFR-NON AF BARBADIAN 28 mL/min/1.73m2 Critically low >=60 [facility] Comment on above: Performed By: #### B SUPERVISOR DIALS, CMP ####[facility] Yqemjwtdhh08[address] [place], [place] [address]Dr. Airam Tripathi Globulin (S) [Mass/Vol] 3.1 g/dL Normal [facility] Comment on above: Performed By: #### B SUPERVISOR DIALS, CMP ####[facility] Ceroubkjbm854[address] [place], [place] [address]Dr. Airam Tripathi Glucose [Mass/Vol] 77 mg/dL Normal 74-106 [facility] Comment on above: Performed By: #### B SUPERVISOR DIALS, CMP ####[facility] Xwqicywbcx92[address] [place], [place] [address]Dr. Airam Tripathi Potassium [Moles/Vol] 4.2 mmol/L Normal 3.5-5.1 [facility] Comment on above: Performed By: #### B SUPERVISOR DIALS, CMP ####[facility] Kgwfkwrlnw219[address] [place], [place] [address]Dr. Airam Tripathi Protein [Mass/Vol] 6.3 g/dL Critically low 6.4-8.2 [facility] Comment on above: Performed By: #### B SUPERVISOR DIALS, CMP ####[facility] Ngdoujdcyc9[address] [place], [place] [address]Dr. Airam Tripathi Sodium [Moles/Vol] 125 mmol/L Critically low 136-145 [facility] Comment on above: Performed By: #### B SUPERVISOR DIALS, CMP ####[facility] Jfsdaucyqk701[address] [place], [place] [address]Dr. Airam Tripathi Urea nitrogen [Mass/Vol] 35.0 mg/dL Critically high 7.0-18.0 [facility] Comment on above: Performed By: #### B SUPERVISOR DIALS, CMP ####[facility] Xhdlhedueb039[address] [place], [place] [address]Dr. Airam Tripathi Urea nitrogen/Creatinine [Mass ratio] 19.1 mg/mg Normal [facility] Comment on above: Performed By: #### B SUPERVISOR DIALS, CMP ####[facility] Fktsymozxx37[address] [place], [place] [address]Dr. Airam Tripathi UA RANDOM W/MICROSCOPICon BACTERIA TRACE Abnormal NONE SEEN [facility] Comment on above: Performed By: #### U AMIC ####[facility] Vpswexhqjk[address] [place], [place] [address]Dr. Airam Tripathi Bilirubin Ql (U) Negative Normal NEGATIVE [facility] Comment on above: Performed By: #### U AMIC ####[facility] Hsrddaqzai[address] [place], [place] [address]Dr. Airam Tripathi CAST NONE SEEN Normal NONE SEEN [facility] Comment on above: Performed By: #### U AMIC ####[facility] Quffdemoqo[address] [place] [address]Dr. Airam Tripathi Clarity (U) CLEAR Normal CLEAR [facility] Comment on above: Performed By: #### U AMIC ####[facility] Ztqtzpynmy[address] [place] [address]Dr. Selenaneil Tripathi Color (U) LT. YELLOW Normal YELLOW [facility] Comment on above: Performed By: #### U AMIC ####[facility] Qcbrincjau[address] [place] [address]Dr. Selenaneil Tripathi Crystals LM Nom (Urine sed) NONE SEEN Normal NONE SEEN [facility] Comment on above: Performed By: #### U AMIC ####[facility] Gfkeibdyfm[address] [place], [place] [address]Dr. Airam Tripathi Epithelial cells LM Ql (Urine sed) FEW Abnormal NONE SEEN /RARE [facility] Comment on above: Performed By: #### U AMIC ####[facility] Dirhuycvqc69[address] [place], [place] [address]Dr. Airam Tripathi Glucose Ql (U) Negative Normal NEGATIVE [facility] Comment on above: Performed By: #### U AMIC ####[facility] Ephxlkbbyq8028[address] [place], [place] [address]Dr. Yilan Tripathi Hemoglobin Ql (U) Negative Normal NEGATIVE [facility] Comment on above: Performed By: #### U AMIC ####[facility] Qakfoiuoqc116[address] [place], [place] [address]Dr. Selenalan Tripathi Ketones Ql (U) Negative Normal NEGATIVE [facility] Comment on above: Performed By: #### U AMIC ####[facility] Zfvshurwzi207[address] [place], [place] [address]Dr. Selenalan Tripathi LEUKOCYTES MODERATE Abnormal NEGATIVE [facility] Comment on above: Performed By: #### U AMIC ####[facility] Oxirxanbmu7[address] [place], [place] [address]Dr. Yilan Tripathi MUCOUS NONE SEEN Normal NONE SEEN [facility] Comment on above: Performed By: #### U AMIC ####[facility] V[address]wiahuok[address] [place] [address]Dr. Selenaneil Tripathi Nitrite Ql (U) Negative Normal NEGATIVE [facility] Comment on above: Performed By: #### U AMIC ####[facility] Fytjlcfdwq79[address] [place] [address]Dr. Airam Tripathi pH (U) 5.5 [pH] Normal 5-9 [facility] Comment on above: Performed By: #### U AMIC ####[facility] Ldeavoczkk[address] [place] [address]Dr. Airam Tripathi RBC 0-2 Normal 0-2 [facility] Comment on above: Performed By: #### U AMIC ####[facility] Nqaodovujd7[address] [place], [place] [address]Dr. Airam Tripathi SPEC GRAVITY 1.020 Normal 1.005-<=1. 025 [facility] Comment on above: Performed By: #### U AMIC ####[facility] Oleimoilor29[address] [place], [place] [address]Dr. Airam Tripathi UA PROTEIN Negative Normal NEGATIVE/ TRACE [facility] Comment on above: Performed By: #### U AMIC ####[facility] Ebrmutlmyk[address] [place], [place] [address]Dr. Airam Tripathi Urobilinogen Qn (U) 0.2 {Ligia'U}/dL Normal 0.2 - 1. 0 [facility] Comment on above: Performed By: #### U AMIC ####[facility] Hlgdysmcoc[address] [place], [place] [address]Dr. Airam Tripathi WBC 5-10 Abnormal NONE SEEN [facility] Comment on above: Performed By: #### U AMIC ####[facility] Lhytqejcsg64[address] [place], [place] [address]Dr. Airam Tripathi BNPon 06-13-2022 Natriuretic peptide B (Bld) [Mass/Vol] 1496.0 pg/mL Critically high <=900.0 [facility] Comment on above: Performed By: #### T 4, BNP, MG, TSH, CMADM, CRP, CMP ####[facility] Jxkpdslvwf6[address] [place] [phone]. Airam Tripathi CARDIAC CONSUELO 3-6on 2 CK [Catalytic activity/Vol] 125 U/L Normal 26-192 [facility] Comment on above: Performed By: #### C MREP ####[facility] [address]zutnod[address] [place], [place] [address]Pn. Airam Tripathi CK.MB [Mass/Vol] ng/mL Normal <=3.60 [facility] Comment on above: Performed By: #### C MREP ####[facility] Jnjborvbje9[address] [place] [phone]. Airam Tripathi HSTROP 5.8 pg/mL Normal 4.0-51.3 [facility] Comment on above: Result Comment: CUT- OFF POINTS HAVE BEEN ESTABLISHED BASED ON THE FOURTH UNIVERSAL DEFINITIONS OF MYOCARDIALINFARCTION. THE UPPER REFERENCE LIMIT (URL) OF TROPONIN, DEFINED THE 99TH PERCENTILE OFcTnI DISTRIBUTION IN A REFERENCE POPULATION, HAS BEEN CONFIRMED THE DECISION THRESHOLDFOR DE DIAGNOSIS. Performed By: #### C MREP ####[facility] Hqportktsp40[address] [place] [phone]. Airam Tripathi CARDIAC CONSUELO ADMITon 022 CK [Catalytic activity/Vol] 121 U/L Normal 26-192 [facility] Comment on above: Performed By: #### T 4, BNP, MG, TSH, CMADM, CRP, CMP ####[facility] Jfgvlhfmpq5648 [place] [phone]. Airam Tripathi CK.MB [Mass/Vol] 3.06 ng/mL Normal <=3.60 [facility] Comment on above: Performed By: #### T 4, BNP, MG, TSH, CMADM, CRP, CMP ####[facility] Hmjfagmvqx33[address] [place] [address]Dr. Airam Tripathi HSTROP 6.9 pg/mL Normal 4.0-51.3 [facility] Comment on above: Result Comment: CUT- OFF POINTS HAVE BEEN ESTABLISHED BASED ON THE FOURTH UNIVERSAL DEFINITIONS OF MYOCARDIALINFARCTION. THE UPPER REFERENCE LIMIT (URL) OF TROPONIN, DEFINED THE 99TH PERCENTILE OFcTnI DISTRIBUTION IN A REFERENCE POPULATION, HAS BEEN CONFIRMED THE DECISION THRESHOLDFOR DE DIAGNOSIS. Performed By: #### T 4, BNP, MG, TSH, CMADM, CRP, CMP ####[facility] G[address]igmoohs[address] [place] [address]Dr. Airam Deuce KATHY 124 ng/mL Critically high 9-82 [facility] Comment on above: Performed By: #### T 4, BNP, MG, TSH, CMADM, CRP, CMP ####[facility] Ymroicncdu[address] [place] [address]Dr. Selenaneil Tripathi CBC AUTO DIFFon 06-13-2022 BASO # 0.0 103/ul Normal 0.0-0.1 [facility] Comment on above: Performed By: #### C BC ####[facility] Lvbjwbzgqe45[address] [place] [address]Dr. Airam Tripathi Basophils/100 WBC (Bld) 0.2 % Normal 0.2-2.0 [facility] Comment on above: Performed By: #### C BC ####[facility] Dsieerdobi[address] [place], [place] [address]Dr. Airam Tripathi EO # 0.2 103/ul Normal 0.0-0.7 [facility] Comment on above: Performed By: #### C BC ####[facility] Doozvzlgig[address] [place] [address]Dr. Airam Tripathi Eosinophils/100 WBC (Bld) 1.5 % Normal 0.9-7.0 [facility] Comment on above: Performed By: #### C BC ####[facility] [address]kozxkbpn89[address] [place] [address]Dr. Airam Tripathi Erythrocyte distribution width (RBC) [Ratio] 12.7 % Normal 11.0-15.0 [facility] Comment on above: Performed By: #### C BC ####[facility] Fsmeaffvqu78[address] [place], [place] [address]Dr. Airam Tripathi Hematocrit (Bld) [Volume fraction] 30.0 % Critically low 36.0-48.0 [facility] Comment on above: Performed By: #### C BC ####[facility] Bwwoddkpnn16[address] [place] [phone]. Airam Tripathi Hemoglobin (Bld) [Mass/Vol] 9.6 g/dL Critically low 12.0-16.0 [facility] Comment on above: Performed By: #### C BC ####[facility] Ampibozqhn2635 [place] [phone]. Airam Tripathi IG # 0.11 10e3/ul Critically high 0.00-0.03 [facility] Comment on above: Performed By: #### C BC ####[facility] Oyuzqimarr[address] [place] [address]Dr. Airam Tripathi IG % 1.1 % Critically high 0.0-0.5 [facility] Comment on above: Performed By: #### C BC ####[facility] Amnpnbsddf[address] [place] [address]Dr. Airam Tripathi LYMPH # 1.5 103/ul Normal 1.2-3.8 [facility] Comment on above: Performed By: #### C BC ####[facility] Mwzqjoxajd62[address] [place], [place] [address]Dr. Airam Tripathi Lymphocytes/100 WBC (Bld) 14.9 % Critically low 20.5-60.0 [facility] Comment on above: Performed By: #### C BC ####[facility] Iyimwjuxtg[address] [place] [address]Dr. Airam Tripathi MANUAL DIFF REQ NO Normal [facility] Comment on above: Performed By: #### C BC ####[facility] Buyizayaur[address] [place], [place] [address]Dr. Airam Tripathi MCH (RBC) [Entitic mass] 30.0 pg Normal 26.7-34.0 [facility] Comment on above: Performed By: #### C BC ####[facility] Ikgyxqydyi609[address] [place], [place] [address]Dr. Airam Tripathi MCHC (RBC) [Mass/Vol] 32.0 g/dL Normal 29.9-35.2 [facility] Comment on above: Performed By: #### C BC ####[facility] Mtgvvhgccb6439 [place] [phone]. Airam Tripathi MCV (RBC) [Entitic vol] 93.8 fL Normal 81.0-99.0 [facility] Comment on above: Performed By: #### C BC ####[facility] Fjcofwlsch3036 [place] [phone]. Ariam Tripathi MONO # 0.8 103/ul Normal 0.3-0.8 [facility] Comment on above: Performed By: #### C BC ####[facility] Msfxdnolmb5976 [place] [phone]. Airam Tripathi Monocytes/100 WBC (Bld) 7.3 % Normal 1.7-12.0 [facility] Comment on above: Performed By: #### C BC ####[facility] Vwyrxxhdac[address] [place], [place] [address]Dr. Airam Tripathi NEUT # 7.8 103/ul Critically high 1.4-6.5 [facility] Comment on above: Performed By: #### C BC ####[facility] Uwkclgvoeq[address] [place], [place] [address]Dr. Airam Tripathi Neutrophils/100 WBC (Bld) 75.0 % Normal 43.0-75.0 [facility] Comment on above: Performed By: #### C BC ####[facility] Curysxdzpj[address] [place], [place] [address]Dr. Airam Tripathi Platelet mean volume (Bld) [Entitic vol] 9.1 fL Critically low 9.5-13.5 [facility] Comment on above: Performed By: #### C BC ####[facility] Astxsuektp[address] [place], [place] [address]Dr. Airam Tripathi PLT 341 103/ul Normal 150-450 [facility] Comment on above: Performed By: #### C BC ####[facility] Qyolblexue[address] [place], [place] [address]Dr. Airam Tripathi RBC 3.20 106/ul Critically low 4.20-5.40 [facility] Comment on above: Performed By: #### C BC ####[facility] Zsvmykgdke[address] [place], [place] [address]Lw. Airam Tripathi WBC 10.4 103/ul Normal 4.0-11.0 [facility] Comment on above: Performed By: #### C BC ####[facility] Vzkqwcfnts78[address] [place], [place] [address]Gm. Airam Tripathi CRPon 06-13-2022 CRP [Mass/Vol] mg/L Normal <=1.0 [facility] Comment on above: Performed By: #### T 4, BNP, MG, TSH, CMADM, CRP, CMP ####[facility] Jbwruynywg24[address] [place], [place] [address]Vo. Air[address] Tri[address] CT HEAD WO CONon 06-13-2022 CT HEAD WO CON Normal [facility] Covid-19 PCR (CVDTBH)on 05-26 SARS-CoV-2 (COVID-19) RNA MIKE+probe Ql (Unsp spec) Not detected Normal NOT DETECTED [facility] Comment on above: Result Comment: When [...] for this test is supported by the Career Specialist of Health and Human Service's declaration that [...] be used). Performed By: #### C VDTBH ####[facility] Fuxpshixpg9971 [place], [place] [address]Sq. Airam Tripathi LACTATE/LACTIC ACIDon 2021 Lactate [Moles/Vol] 0.5 mmol/L Normal 0.4-1.9 [facility] Comment on above: Performed By: #### L ACT ####[facility] [address]fbhdliqt68[address] [place] [address]Dr. Airam Tripathi MAGNESIUMon 06-13-2022 Magnesium [Mass/Vol] 1.9 mg/dL Normal 1.8-2.4 [facility] Comment on above: Performed By: #### T 4, BNP, MG, TSH, CMADM, CRP, CMP ####[facility] Fvffhlsgzd4[address] [place] [address]Dr. Airam Tripathi PROF 14(COMP METB)on 022 Albumin [Mass/Vol] 3.8 g/dL Normal 3.4-5.0 [facility] Comment on above: Performed By: #### T 4, BNP, MG, TSH, CMADM, CRP, CMP ####[facility] Ppotfixvok[address] [place] [address]Dr. Airam Tripathi Albumin/Globulin [Mass ratio] 1.1 {ratio} Normal [facility] Comment on above: Performed By: #### T 4, BNP, MG, TSH, CMADM, CRP, CMP ####[facility] Ffmwyqrgvv340[address] [place] [address]Dr. Airam Tripathi ALP [Catalytic activity/Vol] 161 U/L Critically high 46-116 [facility] Comment on above: Performed By: #### T 4, BNP, MG, TSH, CMADM, CRP, CMP ####[facility] Cessftpqln60[address] [place] [address]Dr. Airam Tripathi ALT [Catalytic activity/Vol] 21 U/L Normal 14-59 [facility] Comment on above: Performed By: #### T 4, BNP, MG, TSH, CMADM, CRP, CMP ####[facility] Vajokwhkgp[address] [place] [address]Dr. Airam Tripathi Anion gap [Moles/Vol] 12.6 mmol/L Normal [facility] Comment on above: Performed By: #### T 4, BNP, MG, TSH, CMADM, CRP, CMP ####[facility] Rpqqvazdma[address] [place] [address]Dr. Airam Tripathi AST [Catalytic activity/Vol] 30 U/L Normal 15-37 [facility] Comment on above: Performed By: #### T 4, BNP, MG, TSH, CMADM, CRP, CMP ####[facility] Hpeuwodesz[address] [place] [address]Dr. Airam Tripathi Bilirubin [Mass/Vol] 0.3 mg/dL Normal 0.2-1.0 [facility] Comment on above: Performed By: #### T 4, BNP, MG, TSH, CMADM, CRP, CMP ####[facility] Hticilvfkb[address] [place] [address]Dr. Airam Tripathi Calcium [Mass/Vol] 8.8 mg/dL Normal 8.5-10.1 [facility] Comment on above: Performed By: #### T 4, BNP, MG, TSH, CMADM, CRP, CMP ####[facility] [address]ogqis[address] [place] [address]Dr. Airam Tripathi Chloride [Moles/Vol] 91 mmol/L Critically low 98-107 [facility] Comment on above: Performed By: #### T 4, BNP, MG, TSH, CMADM, CRP, CMP ####[facility] Omyt[address]qxusg[address] [place] [address]Dr. Airam Tripathi CO2 [Moles/Vol] 26.9 mmol/L Normal 21.0-32.0 [facility] Comment on above: Performed By: #### T 4, BNP, MG, TSH, CMADM, CRP, CMP ####[facility] [address]cbs[address]zsv[address] [place] [address]Dr. Airam Tripathi Creatinine [Mass/Vol] 1.83 mg/dL Critically high 0.55-1.02 [facility] Comment on above: Performed By: #### T 4, BNP, MG, TSH, CMADM, CRP, CMP ####[facility] Dsrrylelaw[address] [place] [address]Dr. Airam Tripathi EGFR-AF BARBADIAN 34 mL/min/1.73m2 Critically low >=60 [facility] Comment on above: Performed By: #### T 4, BNP, MG, TSH, CMADM, CRP, CMP ####[facility] Plcmbskylq[address] [place] [address]Dr. Airam Tripathi EGFR-NON AF BAR[place]IAN 28 mL/min/1.73m2 Critically low >=60 [facility] Comment on above: Performed By: #### T 4, BNP, MG, TSH, CMADM, CRP, CMP ####[facility] Lgwtxazlrn[address] [place] [address]Dr. Airam Tripathi Globulin (S) [Mass/Vol] 3.5 g/dL Normal [facility] Comment on above: Performed By: #### T 4, BNP, MG, TSH, CMADM, CRP, CMP ####[facility] Gxyfxzbqcm247[address] [place], [place] [address]Dr. Airam Tripathi Glucose [Mass/Vol] 96 mg/dL Normal 74-106 [facility] Comment on above: Performed By: #### T 4, BNP, MG, TSH, CMADM, CRP, CMP ####[facility] Ysgckkfblg813[address] [place], [place] [address]Dr. Airam Tripathi Potassium [Moles/Vol] 4.5 mmol/L Normal 3.5-5.1 [facility] Comment on above: Performed By: #### T 4, BNP, MG, TSH, CMADM, CRP, CMP ####[facility] Quyorvbodd[address] [place] [address]Dr. Airam Tripathi Protein [Mass/Vol] 7.3 g/dL Normal 6.4-8.2 [facility] Comment on above: Performed By: #### T 4, BNP, MG, TSH, CMADM, CRP, CMP ####[facility] Urpxysyctu040[address] [place] [address]Dr. Airam Tripathi Sodium [Moles/Vol] 126 mmol/L Critically low 136-145 Th [facility] Comment on above: Performed By: #### T 4, BNP, MG, TSH, CMADM, CRP, CMP ####[facility] Lqmtlzfkpx[address] [place], [place] [address]Dr. Airam Tripathi Urea nitrogen [Mass/Vol] 34.0 mg/dL Critically high 7.0-18.0 [facility] Comment on above: Performed By: #### T 4, BNP, MG, TSH, CMADM, CRP, CMP ####[facility] Qogyhgalea919[address] [place], [place] [address]Dr. Airam Tripathi Urea nitrogen/Creatinine [Mass ratio] 18.6 mg/mg Normal [facility] Comment on above: Performed By: #### T 4, BNP, MG, TSH, CMADM, CRP, CMP ####[facility] Robmcpygce319598 [address] [place], [place] [address]Dr. Airam Tripathi Albumin [Mass/Vol] 3.4 g/dL Normal 3.4-5.0 [facility] Comment on above: Performed By: #### C MP ####[facility] Zmbfdkczum075[address] [place], [place] [address]Dr. Airam Tripathi Albumin/Globulin [Mass ratio] 1.0 {ratio} Normal [facility] Comment on above: Performed By: #### C MP ####[facility] Yqdgdjtqdw6210[address] [place], [place] [address]Dr. Airam Tripathi ALP [Catalytic activity/Vol] 151 U/L Critically high 46-116 [facility] Comment on above: Performed By: #### C MP ####[facility] Ajkcjtbwix376[address] [place], [place] [address]Dr. Airam Tripathi ALT [Catalytic activity/Vol] 20 U/L Normal 14-59 [facility] Comment on above: Performed By: #### C MP ####[facility] Npimkhpybq470[address] [place], [place] [address]Dr. Airam Tripathi Anion gap [Moles/Vol] 11.7 mmol/L Normal [facility] Comment on above: Performed By: #### C MP ####[facility] Vwlwxzontt249998 [address] [place], [place] [address]Dr. Airam Tripathi AST [Catalytic activity/Vol] 28 U/L Normal 15-37 [facility] Comment on above: Performed By: #### C MP ####[facility] Qoigagqfuk130[address] [place], [place] [address]Dr. Airma Tripathi Bilirubin [Mass/Vol] 0.3 mg/dL Normal 0.2-1.0 [facility] Comment on above: Performed By: #### C MP ####[facility] Sfrdcwoesy177698 [address] [place], [place] [address]Dr. Airam Tripathi Calcium [Mass/Vol] 8.5 mg/dL Normal 8.5-10.1 [facility] Comment on above: Performed By: #### C MP ####[facility] Wporuwemwr316[address] [place], [place] [address]Dr. Airam Tripathi Chloride [Moles/Vol] 91 mmol/L Critically low 98-107 [facility] Comment on above: Performed By: #### C MP ####[facility] Zhobamtnqk042198 [address] [place], [place] [address]Dr. Airam Tripathi CO2 [Moles/Vol] 28.3 mmol/L Normal 21.0-32.0 [facility] Comment on above: Performed By: #### C MP ####[facility] Xmdzmxgtqk388098 [address] [place], [place] [address]Dr. Airam Tripathi Creatinine [Mass/Vol] 1.68 mg/dL Critically high 0.55-1.02 [facility] Comment on above: Performed By: #### C MP ####[facility] Xzszciitln64299[address] [place], [place] [address]Dr. Airam Tripathi EGFR-AF [place] 38 mL/min/1.73m2 Critically low >=60 [facility] Comment on above: Performed By: #### C MP ####[facility] Glrdxtjayr282198 [address] [place], [place] [address]Dr. Airam Tripathi EGFR-NON AF [place] 31 mL/min/1.73m2 Critically low >=60 [facility] Comment on above: Performed By: #### C MP ####[facility] Zyqkexngqd5230[address] [place], [place] [address]Dr. Airam Tripathi Globulin (S) [Mass/Vol] 3.5 g/dL Normal [facility] Comment on above: Performed By: #### C MP ####[facility] Zzzzepgtew0135[address] [place], [place] [address]Dr. Airam Tripathi Glucose [Mass/Vol] 74 mg/dL Normal 74-106 [facility] Comment on above: Performed By: #### C MP ####[facility] Tvlzdkvdbr66[address] [place] [address]Dr. Airam Tripathi Potassium [Moles/Vol] 4.0 mmol/L Normal 3.5-5.1 [facility] Comment on above: Performed By: #### C MP ####[facility] Styzlwnure4575[address] [place], [place] [address]Dr. Airam Tripathi Protein [Mass/Vol] 6.9 g/dL Normal 6.4-8.2 [facility] Comment on above: Performed By: #### C MP ####[facility] Nvbclhcfgd729[address] [place], [place] [address]Dr. Airam Tripathi Sodium [Moles/Vol] 127 mmol/L Critically low 136-145 Th [facility] Comment on above: Performed By: #### C MP ####[facility] Bxbyhtcfmc218[address] [place], [place] [address]Dr. Airam Tripathi Urea nitrogen [Mass/Vol] 29.0 mg/dL Critically high 7.0-18.0 [facility] Comment on above: Performed By: #### C MP ####[facility] Manlwrmrpc0050[address] [place], [place] [address]Dr. Airam Tripathi Urea nitrogen/Creatinine [Mass ratio] 17.3 mg/mg Normal [facility] Comment on above: Performed By: #### C MP ####[facility] Pbakauasfq8799[address] [place], [place] [address]Dr. Airam Tripathi T4on 06-13-2022 T4 [Mass/Vol] 6.80 ug/dL Normal 4.80-13.90 [facility] Comment on above: Performed By: #### T 4, BNP, MG, TSH, CMADM, CRP, CMP ####[facility] Xiwfhamdhy8985[address] [place], [place] [address]Dr. Airam Tripathi TSHon 06-13-2022 TSH 0.101 uIU/mL Critically low 0.358-3.74 0 [facility] Comment on above: Performed By: #### T 4, BNP, MG, TSH, CMADM, CRP, CMP ####[facility] Qanywvipos9[address] [place] [id number]. Airam Tripathi OSMOLALITYon 06-08-2022 Osmolality [Osmolality] 272 mosm/kg Critically low 275-295 [facility] Comment on above: Performed By: #### O SMO ####[facility] Pknbfionhj812[address] [place], [place] [address]Dr. Airam Deuce CBC AUTO DIFFon 06-06-2022 BASO # 0.0 103/ul Normal 0.0-0.1 [facility] Comment on above: Performed By: #### C BC ####[facility] Ynqrohuooq53[address] [place], [place] [address]Dr. Airam Tripathi Basophils/100 WBC (Bld) 0.3 % Normal 0.2-2.0 [facility] Comment on above: Performed By: #### C BC ####[facility] Tnbkccarvt866[address] [place], [place] [address]Dr. Airam Tripathi EO # 0.2 103/ul Normal 0.0-0.7 [facility] Comment on above: Performed By: #### C BC ####[facility] Jfnwgzyjuu824[address] [place], [place] [address]Dr. Airam Tripathi Eosinophils/100 WBC (Bld) 2.5 % Normal 0.9-7.0 [facility] Comment on above: Performed By: #### C BC ####[facility] Icjcggsdpw795[address] [place], [place] [address]Dr. Airam Tripathi Erythrocyte distribution width (RBC) [Ratio] 12.9 % Normal 11.0-15.0 [facility] Comment on above: Performed By: #### C BC ####[facility] Msueinhfme895[address] [place], [place] [address]Dr. Airam Tripathi Hematocrit (Bld) [Volume fraction] 29.8 % Critically low 36.0-48.0 [facility] Comment on above: Performed By: #### C BC ####[facility] Cdyemzmncq9536[address] [place], [place] [address]Dr. Airam Tripathi Hemoglobin (Bld) [Mass/Vol] 9.7 g/dL Critically low 12.0-16.0 [facility] Comment on above: Performed By: #### C BC ####[facility] Ieooeyddam[address] [place] [address]DrKianna Tripathi IG # 0.03 10e3/ul Normal 0.00-0.03 [facility] Comment on above: Performed By: #### C BC ####[facility] Gdyjffsmkm8713 [place] [address]DrKianna Tripathi IG % 0.3 % Normal 0.0-0.5 [facility] Comment on above: Performed By: #### C BC ####[facility] Qtdhxvwxid6843 [place] [address]DrKianna Tripathi LYMPH # 1.3 103/ul Normal 1.2-3.8 [facility] Comment on above: Performed By: #### C BC ####[facility] Rocfodjaxj9287 [place] [address]DrKianna Tripathi Lymphocytes/100 WBC (Bld) 14.6 % Critically low 20.5-60.0 [facility] Comment on above: Performed By: #### C BC ####[facility] Uxsfqidgsd65[address] [place] [address]DrKianna Tripathi MANUAL DIFF REQ NO Normal [facility] Comment on above: Performed By: #### C BC ####[facility] Diurcquqpq6436 [place] [address]DrKianna Tripathi MCH (RBC) [Entitic mass] 30.6 pg Normal 26.7-34.0 [facility] Comment on above: Performed By: #### C BC ####[facility] Fxwhuxslax0578 [place] [address]DrKianna Tripathi MCHC (RBC) [Mass/Vol] 32.6 g/dL Normal 29.9-35.2 [facility] Comment on above: Performed By: #### C BC ####[facility] Tjjqavkvpq9[address] [place] [address]DrKianna Tripathi MCV (RBC) [Entitic vol] 94.0 fL Normal 81.0-99.0 [facility] Comment on above: Performed By: #### C BC ####[facility] Cmimrqkxbf5326 [place] [id number]. Airam Tripathi MONO # 0.5 103/ul Normal 0.3-0.8 [facility] Comment on above: Performed By: #### C BC ####[facility] Bhrxyrrbmh7273 [place] [id number]. Airam Tripathi Monocytes/100 WBC (Bld) 5.7 % Normal 1.7-12.0 [facility] Comment on above: Performed By: #### C BC ####[facility] Mrizsmfmrd5117 [place] [address]Dr. Airam Tripathi NEUT # 6.9 103/ul Critically high 1.4-6.5 [facility] Comment on above: Performed By: #### C BC ####[facility] Mirvtzxwes9668 [place] [address]Dr. Airam Tripathi Neutrophils/100 WBC (Bld) 76.6 % Critically high 43.0-75.0 [facility] Comment on above: Performed By: #### C BC ####[facility] Ihcayejfdu6243 [place] [address]Dr. Airam Tripathi Platelet mean volume (Bld) [Entitic vol] 9.2 fL Critically low 9.5-13.5 [facility] Comment on above: Performed By: #### C BC ####[facility] Sfjlhbmtco9187 [place] [id number]. Airam Tripathi PLT 271 103/ul Normal 150-450 [facility] Comment on above: Performed By: #### C BC ####[facility] Tfcpcwxerm0404 [place] [id number]. Selenaneil Deuce RBC 3.17 106/ul Critically low 4.20-5.40 [facility] Comment on above: Performed By: #### C BC ####[facility] Jcljnweoau9328 [place] [id number]. Airam Deuce WBC 9.1 103/ul Normal 4.0-11.0 [facility] Comment on above: Performed By: #### C BC ####[facility] Tdtgjzeqri0816 [place] [address]Dr. Airam Tripathi PROF 14(COMP METB)on 022 Albumin [Mass/Vol] 3.4 g/dL Normal 3.4-5.0 [facility] Comment on above: Performed By: #### C MP ####[facility] Nywwnxzftc2181 [place] [address]Dr. Airam Tripathi Albumin/Globulin [Mass ratio] 1.0 {ratio} Normal [facility] Comment on above: Performed By: #### C MP ####[facility] Mjxiquevql7345 [place] [address]Dr. Airam Tripathi ALP [Catalytic activity/Vol] 156 U/L Critically high 46-116 [facility] Comment on above: Performed By: #### C MP ####[facility] Euwvadwtrt316[address] [place], [place] [address]Dr. Airam Tripathi ALT [Catalytic activity/Vol] 18 U/L Normal 14-59 [facility] Comment on above: Performed By: #### C MP ####[facility] Aqiqxhtlyk015398 [address] [place], [place] [address]Dr. Airam Tripathi Anion gap [Moles/Vol] 10.8 mmol/L Normal [facility] Comment on above: Performed By: #### C MP ####[facility] Yfsjwekmfd237198 [address] [place], [place] [address]Dr. Airam Tripathi AST [Catalytic activity/Vol] 27 U/L Normal 15-37 [facility] Comment on above: Performed By: #### C MP ####[facility] Vaqfnnsnve7418[address] [place], [place] [address]Dr. Airam Tripathi Bilirubin [Mass/Vol] 0.2 mg/dL Normal 0.2-1.0 [facility] Comment on above: Performed By: #### C MP ####[facility] Wypcvlilty499098 [address] [place], [place] [address]Dr. Airam Tripathi Calcium [Mass/Vol] 8.1 mg/dL Critically low 8.5-10.1 [facility] Comment on above: Performed By: #### C MP ####[facility] Akoohlybnv4505 [place] [address]Dr. Airam Tripathi Chloride [Moles/Vol] 92 mmol/L Critically low 98-107 [facility] Comment on above: Performed By: #### C MP ####[facility] Tmznoedbgn2821 [place] [address]Dr. Airam Tripathi CO2 [Moles/Vol] 27.4 mmol/L Normal 21.0-32.0 [facility] Comment on above: Performed By: #### C MP ####[facility] Qrbwgobxef1450 [place] [address]Dr. Airam Tripathi Creatinine [Mass/Vol] 1.57 mg/dL Critically high 0.55-1.02 [facility] Comment on above: Performed By: #### C MP ####[facility] Dxqlpslyzo4764[address] [place], [place] [address]Dr. Airam Tripathi EGFR-AF [place] 41 mL/min/1.73m2 Critically low >=60 [facility] Comment on above: Performed By: #### C MP ####[facility] Xyamauyuye4450[address] [place], [place] [address]Dr. Airam Tripathi EGFR-NON AF [place] 34 mL/min/1.73m2 Critically low >=60 [facility] Comment on above: Performed By: #### C MP ####[facility] Esnqeaqojh16[address] [place] [address]Dr. Airam Tripathi Globulin (S) [Mass/Vol] 3.4 g/dL Normal [facility] Comment on above: Performed By: #### C MP ####[facility] Ppfvptjifx6910 [place] [address]Dr. Airam Deuce Glucose [Mass/Vol] 82 mg/dL Normal 74-106 [facility] Comment on above: Performed By: #### C MP ####[facility] Xwyqwldcdz8124 [place] [address]Dr. Airam Deuce Potassium [Moles/Vol] 4.2 mmol/L Normal 3.5-5.1 [facility] Comment on above: Performed By: #### C MP ####[facility] Qurhzabuen8709 [place] [address]Dr. Airam Tripathi Protein [Mass/Vol] 6.8 g/dL Normal 6.4-8.2 [facility] Comment on above: Performed By: #### C MP ####[facility] Euknrjrehg2713[address] [place], [place] [address]Dr. Airam Deuce Sodium [Moles/Vol] 126 mmol/L Critically low 136-145 Th [facility] Comment on above: Performed By: #### C MP ####[facility] Slwbzjmlph518[address] [place], [place] [address]Dr. Airam Deuce Urea nitrogen [Mass/Vol] 35.0 mg/dL Critically high 7.0-18.0 [facility] Comment on above: Performed By: #### C MP ####[facility] Ydtgreheyi821198 [address] [place], [place] [address]Dr. Airam Tripathi Urea nitrogen/Creatinine [Mass ratio] 22.3 mg/mg Normal [facility] Comment on above: Performed By: #### C MP ####[facility] Ypeefneess6905[address] [place], [place] [address]Dr. Airam Deuce OSMOLALITYon 06-02-2022 Osmolality [Osmolality] 276 mosm/kg Normal 275-295 [facility] Comment on above: Performed By: #### O SMO ####[facility] Ntiwhbujmj4980[address] [place], [place] [address]Dr. Airam Deuce CBC AUTO DIFFon 06-01-2022 BASO # 0.1 103/ul Normal 0.0-0.1 [facility] Comment on above: Performed By: #### C BC ####[facility] Skyvrxveii807698 [address] [place], [place] [address]Dr. Airam Deuce Basophils/100 WBC (Bld) 0.7 % Normal 0.2-2.0 [facility] Comment on above: Performed By: #### C BC ####[facility] Qpxcnhfgdh9850[address] [place], [place] [address]Dr. Airam Tripathi EO # 0.3 103/ul Normal 0.0-0.7 [facility] Comment on above: Performed By: #### C BC ####[facility] Zjixjsqcvc9674 [place] [address]Dr. Airam Tripathi Eosinophils/100 WBC (Bld) 3.3 % Normal 0.9-7.0 [facility] Comment on above: Performed By: #### C BC ####[facility] Xdwwsbrwpn930[address] [place], [place] [address]Dr. Airam Tripathi Erythrocyte distribution width (RBC) [Ratio] 13.2 % Normal 11.0-15.0 [facility] Comment on above: Performed By: #### C BC ####[facility] Mmgrbbskic844[address] [place], [place] [address]Dr. Airam Tripathi Hematocrit (Bld) [Volume fraction] 32.0 % Critically low 36.0-48.0 [facility] Comment on above: Performed By: #### C BC ####[facility] Wutxpexcfs866[address] [place], [place] [address]Dr. Airam Tripathi Hemoglobin (Bld) [Mass/Vol] 10.3 g/dL Critically low 12.0-16.0 [facility] Comment on above: Performed By: #### C BC ####[facility] Qimxlwwiqn912198 [address] [place], [place] [address]Dr. Airam Tripathi IG # 0.05 10e3/ul Critically high 0.00-0.03 [facility] Comment on above: Performed By: #### C BC ####[facility] Fbxhhzlxnc4065[address] [place], [place] [address]Dr. Airam Tripathi IG % 0.7 % Critically high 0.0-0.5 [facility] Comment on above: Performed By: #### C BC ####[facility] Pzyvamvrsv305[address] [place], [place] [address]DrKianna Tripathi LYMPH # 1.7 103/ul Normal 1.2-3.8 [facility] Comment on above: Performed By: #### C BC ####[facility] Vjvlxzwvyt1136[address] [place], [place] [address]DrKianna Tripathi Lymphocytes/100 WBC (Bld) 22.6 % Normal 20.5-60.0 [facility] Comment on above: Performed By: #### C BC ####[facility] Izpopvhusj870[address] [place], [place] [address]DrKianna Tripathi MANUAL DIFF REQ NO Normal [facility] Comment on above: Performed By: #### C BC ####[facility] Nkfrmlbejv5848[address] [place], [place] [address]Dr. Airam Tripathi MCH (RBC) [Entitic mass] 30.8 pg Normal 26.7-34.0 [facility] Comment on above: Performed By: #### C BC ####[facility] Poqgrckvuz8416[address] [place], [place] [address]Dr. Airam Tripathi MCHC (RBC) [Mass/Vol] 32.2 g/dL Normal 29.9-35.2 [facility] Comment on above: Performed By: #### C BC ####[facility] Brlhwbrapq659[address] [place], [place] [address]DrKianna Tripathi MCV (RBC) [Entitic vol] 95.8 fL Normal 81.0-99.0 [facility] Comment on above: Performed By: #### C BC ####[facility] Srzouzykfg7417[address] [place], [place] [address]DrKianna Tripathi MONO # 0.6 103/ul Normal 0.3-0.8 [facility] Comment on above: Performed By: #### C BC ####[facility] Vdxeptsyzy867[address] [place], [place] [address]DrKianna Tripathi Monocytes/100 WBC (Bld) 8.6 % Normal 1.7-12.0 [facility] Comment on above: Performed By: #### C BC ####[facility] Vgkklenatw719[address] [place], [place] [address]DrKianna Tripathi NEUT # 4.8 103/ul Normal 1.4-6.5 [facility] Comment on above: Performed By: #### C BC ####[facility] Qfhllrmruz436598 [address] [place], [place] [address]DrKianna Tripathi Neutrophils/100 WBC (Bld) 64.1 % Normal 43.0-75.0 [facility] Comment on above: Performed By: #### C BC ####[facility] Ojqtbxqfcu6067 [place] [address]DrKianna Tripathi Platelet mean volume (Bld) [Entitic vol] 10.0 fL Normal 9.5-13.5 [facility] Comment on above: Performed By: #### C BC ####[facility] Mvxumhpbjb9770[address] [place], [place] [address]DrKianna Tripathi PLT 322 103/ul Normal 150-450 [facility] Comment on above: Performed By: #### C BC ####[facility] Wmesmvipjz534[address] [place], [place] [address]DrKianna Tripathi RBC 3.34 106/ul Critically low 4.20-5.40 [facility] Comment on above: Performed By: #### C BC ####[facility] Nltttvbeur3532[address] [place], [place] [address]DrKianna Tripathi WBC 7.5 103/ul Normal 4.0-11.0 [facility] Comment on above: Performed By: #### C BC ####[facility] Voupubhbjk0317[address] [place], [place] [address]DrKianna Tripathi PROF 14(COMP METB)on 022 Albumin [Mass/Vol] 3.5 g/dL Normal 3.4-5.0 [facility] Comment on above: Performed By: #### C MP ####[facility] Igwjaovbcb8216[address] [place], [place] [address]DrKianna Tripathi Albumin/Globulin [Mass ratio] 1.1 {ratio} Normal [facility] Comment on above: Performed By: #### C MP ####[facility] Zktrbdvqgj936[address] [place], [place] [address]DrKianna Tripathi ALP [Catalytic activity/Vol] 167 U/L Critically high 46-116 [facility] Comment on above: Performed By: #### C MP ####[facility] Czcpbvavot37[address] [place], [place] [address]DrKianna Tripathi ALT [Catalytic activity/Vol] 24 U/L Normal 14-59 [facility] Comment on above: Performed By: #### C MP ####[facility] Rkdvohakfg01[address] [place] [address]Dr. Airam Deuce Anion gap [Moles/Vol] 14.1 mmol/L Normal Th [facility] Comment on above: Performed By: #### C MP ####[facility] Pbzyddbpfv513[address] [place], [place] [address]Dr. Airam Deuce AST [Catalytic activity/Vol] 27 U/L Normal 15-37 [facility] Comment on above: Performed By: #### C MP ####[facility] Sktnpofdhq9364[address] [place], [place] [address]Dr. Airam Tripathi Bilirubin [Mass/Vol] 0.3 mg/dL Normal 0.2-1.0 [facility] Comment on above: Performed By: #### C MP ####[facility] Hachdupcsu345[address] [place], [place] [address]Dr. Airam Tripathi Calcium [Mass/Vol] 8.0 mg/dL Critically low 8.5-10.1 [facility] Comment on above: Performed By: #### C MP ####[facility] Veiyhlfhqm339[address] [place], [place] [address]Dr. Airam Tripathi Chloride [Moles/Vol] 96 mmol/L Critically low 98-107 [facility] Comment on above: Performed By: #### C MP ####[facility] Cwgollbmkq264[address] [place], [place] [address]Dr. Airam Tripathi CO2 [Moles/Vol] 24.6 mmol/L Normal 21.0-32.0 [facility] Comment on above: Performed By: #### C MP ####[facility] Egwfvjggif8264[address] [place], [place] [address]Dr. Airam Tripathi Creatinine [Mass/Vol] 1.79 mg/dL Critically high 0.55-1.02 [facility] Comment on above: Performed By: #### C MP ####[facility] Tyuvwnptye860[address] [place], [place] [address]Dr. Airam Tripathi EGFR-AF BAR[place]IAN 35 mL/min/1.73m2 Critically low >=60 [facility] Comment on above: Performed By: #### C MP ####[facility] [address] [place] [address]Dr. Airam Tripathi EGFR-NON AF [place] 29 mL/min/1.73m2 Critically low >=60 [facility] Comment on above: Performed By: #### C MP ####[facility] Dlqsrrnsid[address] [place] [address]Dr. Airam Tripathi Globulin (S) [Mass/Vol] 3.3 g/dL Normal [facility] Comment on above: Performed By: #### C MP ####[facility] Ethznfrxqq326998 [address] [place], [place] [address]Dr. Airam Tripathi Glucose [Mass/Vol] 58 mg/dL Critically low 74-106 [facility] Comment on above: Performed By: #### C MP ####[facility] Vdnnbaxkjb2737[address] [place], [place] [address]Dr. Airam Tripathi Potassium [Moles/Vol] 4.7 mmol/L Normal 3.5-5.1 [facility] Comment on above: Performed By: #### C MP ####[facility] Twuntgrwrx029098 [address] [place], [place] [address]Dr. Airam Tripathi Protein [Mass/Vol] 6.8 g/dL Normal 6.4-8.2 [facility] Comment on above: Performed By: #### C MP ####[facility] Hrnxvrmndd7685[address] [place], [place] [address]Dr. Airam Tripathi Sodium [Moles/Vol] 130 mmol/L Critically low 136-145 Th [facility] Comment on above: Performed By: #### C MP ####[facility] Tjlyifoasv784[address] [place], [place] [address]Dr. Airam Tripathi Urea nitrogen [Mass/Vol] 30.0 mg/dL Critically high 7.0-18.0 [facility] Comment on above: Performed By: #### C MP ####[facility] Tainvvuotr179[address] [place], [place] [address]Dr. Airam Tripathi Urea nitrogen/Creatinine [Mass ratio] 16.8 mg/mg Normal [facility] Comment on above: Performed By: #### C MP ####[facility] Vjbjtpsgbs812698 [address] [place], [place] [address]Dr. Airam Tripathi OSMOLALITYon 05-28-2022 Osmolality [Osmolality] 275 mosm/kg Normal 275-295 [facility] Comment on above: Performed By: #### O SMO ####[facility] Ozjvvczqud0848[address] [place], [place] [address]Dr. Airam Tripathi CBC AUTO DIFFon 05-26-2022 BASO # 0.0 103/ul Normal 0.0-0.1 [facility] Comment on above: Performed By: #### C BC ####[facility] Ihndtbmozy501898 [address] [place], [place] [address]Dr. Airam Tripathi Basophils/100 WBC (Bld) 0.4 % Normal 0.2-2.0 [facility] Comment on above: Performed By: #### C BC ####[facility] Ikctatdtut665698 [address] [place], [place] [address]DrKianna Tripathi EO # 0.3 103/ul Normal 0.0-0.7 [facility] Comment on above: Performed By: #### C BC ####[facility] Zgotpymfie920[address] [place], [place] [address]Dr. Airam Tripathi Eosinophils/100 WBC (Bld) 3.2 % Normal 0.9-7.0 [facility] Comment on above: Performed By: #### C BC ####[facility] Ifaehciovq239298 [address] [place], [place] [address]Dr. Airam Tripathi Erythrocyte distribution width (RBC) [Ratio] 13.0 % Normal 11.0-15.0 [facility] Comment on above: Performed By: #### C BC ####[facility] Ybkoqmuewn1580[address] [place], [place] [address]Dr. Airam Tripathi Hematocrit (Bld) [Volume fraction] 30.4 % Critically low 36.0-48.0 [facility] Comment on above: Performed By: #### C BC ####[facility] Ragqbmfgpq425998 [address] [place], [place] [address]Dr. Airam Tripathi Hemoglobin (Bld) [Mass/Vol] 9.6 g/dL Critically low 12.0-16.0 [facility] Comment on above: Performed By: #### C BC ####[facility] Igbmoswcri[address] [place] [address]Dr. Airam Tripathi IG # 0.06 10e3/ul Critically high 0.00-0.03 [facility] Comment on above: Performed By: #### C BC ####[facility] Ackluzpfgb3[address] [place] [address]Dr. Airam Tripathi IG % 0.7 % Critically high 0.0-0.5 [facility] Comment on above: Performed By: #### C BC ####[facility] Wntzsprhuv317298 [address] [place], [place] [address]DrKianna Tripathi LYMPH # 1.9 103/ul Normal 1.2-3.8 [facility] Comment on above: Performed By: #### C BC ####[facility] Xkvrizcbal259398 [address] [place], [place] [address]Dr. Airam Tripathi Lymphocytes/100 WBC (Bld) 20.6 % Normal 20.5-60.0 [facility] Comment on above: Performed By: #### C BC ####[facility] Jjztgajbad9813[address] [place], [place] [address]Dr. Airam Tripathi MANUAL DIFF REQ NO Normal [facility] Comment on above: Performed By: #### C BC ####[facility] Znomjtyozy797[address] [place], [place] [address]DrKianna Tripathi MCH (RBC) [Entitic mass] 30.1 pg Normal 26.7-34.0 [facility] Comment on above: Performed By: #### C BC ####[facility] Qbgfqbkfrv020098 [address] [place], [place] [address]DrKianna Tripathi MCHC (RBC) [Mass/Vol] 31.6 g/dL Normal 29.9-35.2 [facility] Comment on above: Performed By: #### C BC ####[facility] Dinrtlshdj347998 [address] [place], [place] [address]Dr. Airam Tripathi MCV (RBC) [Entitic vol] 95.3 fL Normal 81.0-99.0 [facility] Comment on above: Performed By: #### C BC ####[facility] Sxwnayjwed0814[address] [place], [place] [address]DrKianna Tripathi MONO # 0.6 103/ul Normal 0.3-0.8 [facility] Comment on above: Performed By: #### C BC ####[facility] Ovgasbqnra019298 [address] [place], [place] [address]Dr. Airam Tripathi Monocytes/100 WBC (Bld) 6.9 % Normal 1.7-12.0 [facility] Comment on above: Performed By: #### C BC ####[facility] Inrjwizyit538[address] [place], [place] [address]DrKianna Airam Tripathi NEUT # 6.1 103/ul Normal 1.4-6.5 [facility] Comment on above: Performed By: #### C BC ####[facility] Qvoplrhhbm995698 [address] [place], [place] [address]Dr. Airam Tripathi Neutrophils/100 WBC (Bld) 68.2 % Normal 43.0-75.0 [facility] Comment on above: Performed By: #### C BC ####[facility] Knqpgtoevk605698 [address] [place], [place] [address]DrKianna Airam Tripathi Platelet mean volume (Bld) [Entitic vol] 9.7 fL Normal 9.5-13.5 [facility] Comment on above: Performed By: #### C BC ####[facility] Pvqigtqwgp946798 [address] [place], [place] [address]Dr. Airam Deuce PLT 317 103/ul Normal 150-450 [facility] Comment on above: Performed By: #### C BC ####[facility] Neyqvfnfhp906[address] [place], [place] [address]DrKianna Airam Deuce RBC 3.19 106/ul Critically low 4.20-5.40 [facility] Comment on above: Performed By: #### C BC ####[facility] Gaiwjolelo044398 [address] [place], [place] [address]Dr. Airam Tripathi WBC 9.0 103/ul Normal 4.0-11.0 [facility] Comment on above: Performed By: #### C BC ####[facility] Gmbgnymmxq845098 [address] [place], [place] [address]Dr. Airam Tripathi PROF 14(COMP METB)on 022 Albumin [Mass/Vol] 3.4 g/dL Normal 3.4-5.0 [facility] Comment on above: Performed By: #### C MP ####[facility] Cwxwmkhejy132898 [address] [place], [place] [address]Dr. Airam Tripathi Albumin/Globulin [Mass ratio] 1.0 {ratio} Normal [facility] Comment on above: Performed By: #### C MP ####[facility] Eycodgvxds7299[address] [place], [place] [address]Dr. Airam Tripathi ALP [Catalytic activity/Vol] 153 U/L Critically high 46-116 [facility] Comment on above: Performed By: #### C MP ####[facility] Mrhcjhtvks901498 [address] [place], [place] [address]Dr. Airam Tripathi ALT [Catalytic activity/Vol] 21 U/L Normal 14-59 [facility] Comment on above: Performed By: #### C MP ####[facility] Twakytolpb353098 [address] [place], [place] [address]Dr. Airam Tripathi Anion gap [Moles/Vol] 13.6 mmol/L Normal [facility] Comment on above: Performed By: #### C MP ####[facility] Xomtxrgzfy493598 [address] [place], [place] [address]Dr. Airam Tripathi AST [Catalytic activity/Vol] 23 U/L Normal 15-37 [facility] Comment on above: Performed By: #### C MP ####[facility] Cemkcdrzbw227998 [address] [place], [place] [address]Dr. Airam Tripathi Bilirubin [Mass/Vol] 0.2 mg/dL Normal 0.2-1.0 [facility] Comment on above: Performed By: #### C MP ####[facility] Zdcsbfcltk4785[address] [place], [place] [address]Dr. Airam Tripathi Calcium [Mass/Vol] 8.4 mg/dL Critically low 8.5-10.1 Th e [facility] Comment on above: Performed By: #### C MP ####[facility] Oxikupctxq124298 [address] [place], [place] [address]Dr. Airam Tripathi Chloride [Moles/Vol] 97 mmol/L Critically low 98-107 [facility] Comment on above: Performed By: #### C MP ####[facility] Jprobsurcz809498 [address] [place], [place] [address]Dr. Airam Tripathi CO2 [Moles/Vol] 25.2 mmol/L Normal 21.0-32.0 [facility] Comment on above: Performed By: #### C MP ####[facility] Jiolggtvzo875598 [address] [place], [place] [address]Dr. Airam Tripathi Creatinine [Mass/Vol] 1.58 mg/dL Critically high 0.55-1.02 [facility] Comment on above: Performed By: #### C MP ####[facility] Iclvrjvuws927698 [address] [place], [place] [address]Dr. Airam Tripathi EGFR-AF [place] 40 mL/min/1.73m2 Critically low >=60 [facility] Comment on above: Performed By: #### C MP ####[facility] Taaofkxpgr569198 [address] [place], [place] [address]Dr. Airam Tripathi EGFR-NON AF [place] 33 mL/min/1.73m2 Critically low >=60 [facility] Comment on above: Performed By: #### C MP ####[facility] Zuvxyzcpeu894698 [address] [place], [place] [address]Dr. Airam Tripathi Globulin (S) [Mass/Vol] 3.4 g/dL Normal [facility] Comment on above: Performed By: #### C MP ####[facility] Diqsmarlnp816698 [address] [place], [place] [address]Dr. Airam Tripathi Glucose [Mass/Vol] 74 mg/dL Normal 74-106 [facility] Comment on above: Performed By: #### C MP ####[facility] Ocyiljxzhc2540[address] [place], [place] [address]Dr. Airam Tripathi Potassium [Moles/Vol] 4.8 mmol/L Normal 3.5-5.1 [facility] Comment on above: Performed By: #### C MP ####[facility] Sutuhtvuqc611[address] [place], [place] [address]Dr. Airam Deuce Protein [Mass/Vol] 6.8 g/dL Normal 6.4-8.2 [facility] Comment on above: Performed By: #### C MP ####[facility] Lgtdsxsfev090698 [address] [place], [place] [address]Dr. Airam Deuce Sodium [Moles/Vol] 131 mmol/L Critically low 136-145 Th [facility] Comment on above: Performed By: #### C MP ####[facility] Bxxnodpmze524[address] [place], [place] [address]Dr. Selenaneil Deuce Urea nitrogen [Mass/Vol] 31.0 mg/dL Critically high 7.0-18.0 [facility] Comment on above: Performed By: #### C MP ####[facility] Eotnokmmcz4620[address] [place], [place] [address]Dr. Airam Tripathi Urea nitrogen/Creatinine [Mass ratio] 19.6 mg/mg Normal [facility] Comment on above: Performed By: #### C MP ####[facility] Wdttlglylg445[address] [place], [place] [address]DrKianna Airam Deuce OSMOLALITYon 05-19-2022 Osmolality [Osmolality] 281 mosm/kg Normal 275-295 [facility] Comment on above: Performed By: #### O SMO ####[facility] Lhgphanacm5520[address] [place], [place] [address]DrKianna Airam Deuce CBC AUTO DIFFon 05-17-2022 BASO # 0.1 103/ul Normal 0.0-0.1 [facility] Comment on above: Performed By: #### C BC ####[facility] Jnbbcjsddg913798 [address] [place], [place] [address]Dr. Airam Deuce Basophils/100 WBC (Bld) 0.6 % Normal 0.2-2.0 [facility] Comment on above: Performed By: #### C BC ####[facility] Mkjfegbkdk6948[address] [place], [place] [address]Dr. Airam Tripathi EO # 0.2 103/ul Normal 0.0-0.7 [facility] Comment on above: Performed By: #### C BC ####[facility] Pyqlqryxvq[address] [place] [address]Dr. Airam Tripathi Eosinophils/100 WBC (Bld) 1.9 % Normal 0.9-7.0 [facility] Comment on above: Performed By: #### C BC ####[facility] Teyzwltlfr30[address] [place] [address]Dr. Airam Tripathi Erythrocyte distribution width (RBC) [Ratio] 12.9 % Normal 11.0-15.0 [facility] Comment on above: Performed By: #### C BC ####[facility] Wompyyyldi4723[address] [place], [place] [address]Dr. Airam Tripathi Hematocrit (Bld) [Volume fraction] 32.1 % Critically low 36.0-48.0 [facility] Comment on above: Performed By: #### C BC ####[facility] Fzzusdeiys769598 [address] [place], [place] [address]Dr. Airam Tripathi Hemoglobin (Bld) [Mass/Vol] 9.9 g/dL Critically low 12.0-16.0 [facility] Comment on above: Performed By: #### C BC ####[facility] Jjzjdmvyue5814[address] [place], [place] [address]Dr. Airam Tripathi IG # 0.05 10e3/ul Critically high 0.00-0.03 [facility] Comment on above: Performed By: #### C BC ####[facility] Gmnlbqokxm1390[address] [place], [place] [address]Dr. Airam Tripathi IG % 0.6 % Critically high 0.0-0.5 [facility] Comment on above: Performed By: #### C BC ####[facility] Fbvwudkzim734498 [address] [place], [place] [address]Dr. Airam Tripathi LYMPH # 1.3 103/ul Normal 1.2-3.8 [facility] Comment on above: Performed By: #### C BC ####[facility] Nleznfjumx37[address] [place] [address]Dr. Airam Deuce Lymphocytes/100 WBC (Bld) 15.2 % Critically low 20.5-60.0 [facility] Comment on above: Performed By: #### C BC ####[facility] Ffakjexxby[address] [place] [address]Dr. Selenaneil Tripathi MANUAL DIFF REQ NO Normal [facility] Comment on above: Performed By: #### C BC ####[facility] Pvkqqyedwh59[address] [place] [address]Dr. Airam Deuce MCH (RBC) [Entitic mass] 30.0 pg Normal 26.7-34.0 [facility] Comment on above: Performed By: #### C BC ####[facility] Gvzdescsuq1920[address] [place], [place] [address]Dr. Selenaneil Tripathi MCHC (RBC) [Mass/Vol] 30.8 g/dL Normal 29.9-35.2 [facility] Comment on above: Performed By: #### C BC ####[facility] Ayvsdcbyhx5380[address] [place], [place] [address]Dr. Selenaneil Tripathi MCV (RBC) [Entitic vol] 97.3 fL Normal 81.0-99.0 [facility] Comment on above: Performed By: #### C BC ####[facility] Txjhuraaqc6533[address] [place], [place] [address]Dr. Airam Tripathi MONO # 0.5 103/ul Normal 0.3-0.8 [facility] Comment on above: Performed By: #### C BC ####[facility] Aejrhrdqtc0964[address] [place], [place] [address]Dr. Airam Tripathi Monocytes/100 WBC (Bld) 5.4 % Normal 1.7-12.0 [facility] Comment on above: Performed By: #### C BC ####[facility] Lfueixwdjo728[address] [place], [place] [address]Dr. Airam Tripathi NEUT # 6.5 103/ul Normal 1.4-6.5 [facility] Comment on above: Performed By: #### C BC ####[facility] Dfzdeqpyed97[address] [place], [place] [address]Dr. Airam Tripathi Neutrophils/100 WBC (Bld) 76.3 % Critically high 43.0-75.0 [facility] Comment on above: Performed By: #### C BC ####[facility] Mgvkrhqofu4[address] [place] [address]Dr. Airam Tripathi Platelet mean volume (Bld) [Entitic vol] 10.1 fL Normal 9.5-13.5 [facility] Comment on above: Performed By: #### C BC ####[facility] Vjdxxwilei033[address] [place] [address]Dr. Airam Tripathi PLT 284 103/ul Normal 150-450 [facility] Comment on above: Performed By: #### C BC ####[facility] Ipzfxgvmuj447[address] [place], [place] [address]Dr. Airam Tripathi RBC 3.30 106/ul Critically low 4.20-5.40 [facility] Comment on above: Performed By: #### C BC ####[facility] Uyrgksnjbe8815[address] [place], [place] [address]Dr. Airam Tripathi WBC 8.5 103/ul Normal 4.0-11.0 [facility] Comment on above: Performed By: #### C BC ####[facility] Mdxcqonimg626[address] [place], [place] [address]Dr. Airam Tripathi PROF 14(COMP METB)on 022 Albumin [Mass/Vol] 3.1 g/dL Critically low 3.4-5.0 [facility] Comment on above: Performed By: #### C MP ####[facility] Qewvbetbcg5[address] [place] [address]Dr. Airam Tripathi Albumin/Globulin [Mass ratio] 0.9 {ratio} Normal [facility] Comment on above: Performed By: #### C MP ####[facility] Kqnldmauwl726[address] [place], [place] [address]Dr. Airam Tripathi ALP [Catalytic activity/Vol] 162 U/L Critically high 46-116 [facility] Comment on above: Performed By: #### C MP ####[facility] Xgfpirmdrw9208 [place] [address]Dr. Airam Tripathi ALT [Catalytic activity/Vol] 22 U/L Normal 14-59 [facility] Comment on above: Performed By: #### C MP ####[facility] Zdrbbcjxqx6913[address] [place], [place] [address]Dr. Airam Tripathi Anion gap [Moles/Vol] 9.4 mmol/L Normal [facility] Comment on above: Performed By: #### C MP ####[facility] Bnijzucgak8768[address] [place], [place] [address]Dr. Airam Tripathi AST [Catalytic activity/Vol] 26 U/L Normal 15-37 [facility] Comment on above: Performed By: #### C MP ####[facility] Ovkirjspqh8847[address] [place], [place] [address]Dr. Airam Tripathi Bilirubin [Mass/Vol] 0.2 mg/dL Normal 0.2-1.0 [facility] Comment on above: Performed By: #### C MP ####[facility] Tvlhakexyo6101[address] [place], [place] [address]Dr. Airam Tripathi Calcium [Mass/Vol] 8.2 mg/dL Critically low 8.5-10.1 Th [facility] Comment on above: Performed By: #### C MP ####[facility] Vhbyycyjps123[address] [place], [place] [address]Dr. Airam Tripathi Chloride [Moles/Vol] 103 mmol/L Normal 98-107 [facility] Comment on above: Performed By: #### C MP ####[facility] Okjvfjyhcs450[address] [place], [place] [address]Dr. Airam Tripathi CO2 [Moles/Vol] 24.8 mmol/L Normal 21.0-32.0 [facility] Comment on above: Performed By: #### C MP ####[facility] Gvfxrycikc744[address] [place], [place] [address]Dr. Airam Tripathi Creatinine [Mass/Vol] 1.19 mg/dL Critically high 0.55-1.02 [facility] Comment on above: Performed By: #### C MP ####[facility] Ghzfwexjov585[address] [place], [place] [address]Dr. Airam Deuce EGFR-AF [place] 56 mL/min/1.73m2 Critically low >=60 [facility] Comment on above: Performed By: #### C MP ####[facility] Torlqelnyx[address] [place] [address]Dr. Airam Tripathi EGFR-NON AF [place] 46 mL/min/1.73m2 Critically low >=60 [facility] Comment on above: Performed By: #### C MP ####[facility] Hvvfegffne4[address] [place] [address]Dr. Airam Deuce Globulin (S) [Mass/Vol] 3.6 g/dL Normal [facility] Comment on above: Performed By: #### C MP ####[facility] Zqdowwwhoo84[address] [place] [address]Dr. Selenaneil Deuce Glucose [Mass/Vol] 75 mg/dL Normal 74-106 [facility] Comment on above: Performed By: #### C MP ####[facility] Lreycrvleh39[address] [place] [address]Dr. Airam Deuce Potassium [Moles/Vol] 5.2 mmol/L Critically high 3.5-5.1 [facility] Comment on above: Performed By: #### C MP ####[facility] Xnqtkkhtoa01[address] [place] [address]Dr. Airam Deuce Protein [Mass/Vol] 6.7 g/dL Normal 6.4-8.2 [facility] Comment on above: Performed By: #### C MP ####[facility] Bxofqxyflf80[address] [place] [address]Dr. Airam Deuce Sodium [Moles/Vol] 132 mmol/L Critically low 136-145 Th [facility] Comment on above: Performed By: #### C MP ####[facility] Gbxowulgds6474 [place] [address]Dr. Airam Deuce Urea nitrogen [Mass/Vol] 28.0 mg/dL Critically high 7.0-18.0 [facility] Comment on above: Performed By: #### C MP ####[facility] Fbxmvvtynm2554 [place] [address]Dr. Airam Tripathi Urea nitrogen/Creatinine [Mass ratio] 23.5 mg/mg Normal [facility] Comment on above: Performed By: #### C MP ####[facility] Yllpdnnwpb37[address] [place] [address]Dr. Airam Tripathi OSMOLALITYon 05-16-2022 Osmolality [Osmolality] 281 mosm/kg Normal 275-295 [facility] Comment on above: Performed By: #### O SMO ####[facility] Ehoushubfd[address] [place] [address]Dr. Airam Tripathi CBC AUTO DIFFon 05-13-2022 BASO # 0.1 103/ul Normal 0.0-0.1 [facility] Comment on above: Performed By: #### C BC ####[facility] Wfhppmqwmg3[address] [place] [address]Dr. Airam Tripathi Basophils/100 WBC (Bld) 0.5 % Normal 0.2-2.0 [facility] Comment on above: Performed By: #### C BC ####[facility] Dbswihbhop2[address] [place] [address]Dr. Airam Tripathi EO # 0.2 103/ul Normal 0.0-0.7 [facility] Comment on above: Performed By: #### C BC ####[facility] Imzvyrzkca[address] [place] [address]Dr. Airam Tripathi Eosinophils/100 WBC (Bld) 2.1 % Normal 0.9-7.0 [facility] Comment on above: Performed By: #### C BC ####[facility] Bmjnqhdemp85[address] [place] [address]Dr. Airam Tripathi Erythrocyte distribution width (RBC) [Ratio] 12.9 % Normal 11.0-15.0 [facility] Comment on above: Performed By: #### C BC ####[facility] Txezeijmbv58[address] [place] [address]Dr. Airam Tripathi Hematocrit (Bld) [Volume fraction] 31.9 % Critically low 36.0-48.0 [facility] Comment on above: Performed By: #### C BC ####[facility] Khmzigrmbv15[address] [place] [id number]. Airam Tripathi Hemoglobin (Bld) [Mass/Vol] 9.7 g/dL Critically low 12.0-16.0 [facility] Comment on above: Performed By: #### C BC ####[facility] Zqxaqjhgyg6[address] [place] [id number]. Airam Tripathi IG # 0.06 10e3/ul Critically high 0.00-0.03 [facility] Comment on above: Performed By: #### C BC ####[facility] Qhajzxlkri9755 [place] [id number]. Airam Tripathi IG % 0.7 % Critically high 0.0-0.5 [facility] Comment on above: Performed By: #### C BC ####[facility] Ndeunewqhw[address] [place] [address]Dr. Airam Tripathi LYMPH # 1.9 103/ul Normal 1.2-3.8 [facility] Comment on above: Performed By: #### C BC ####[facility] Mjgzecfmam4[address] [place] [address]Dr. Airam Tripathi Lymphocytes/100 WBC (Bld) 21.1 % Normal 20.5-60.0 [facility] Comment on above: Performed By: #### C BC ####[facility] [address]rsazfnnnj75[address] [place] [address]Dr. Airam Tripathi MANUAL DIFF REQ NO Normal [facility] Comment on above: Performed By: #### C BC ####[facility] Qrqytnunde185[address] [place], [place] [address]Dr. Airam Tripathi MCH (RBC) [Entitic mass] 29.7 pg Normal 26.7-34.0 [facility] Comment on above: Performed By: #### C BC ####[facility] Epvvvedgka5[address] [place], [place] [address]Dr. Airam Tripathi MCHC (RBC) [Mass/Vol] 30.4 g/dL Normal 29.9-35.2 [facility] Comment on above: Performed By: #### C BC ####[facility] Yecdfxmqlo66[address] [place] [phone]. Airam Tripathi MCV (RBC) [Entitic vol] 97.6 fL Normal 81.0-99.0 [facility] Comment on above: Performed By: #### C BC ####[facility] Xwvpmqisuf6455 [place] [id number]. Airam Tripathi MONO # 0.6 103/ul Normal 0.3-0.8 [facility] Comment on above: Performed By: #### C BC ####[facility] Dldrsmbrph1393 [place] [phone]. Airam Tripathi Monocytes/100 WBC (Bld) 6.8 % Normal 1.7-12.0 [facility] Comment on above: Performed By: #### C BC ####[facility] Lghebjzgbt3389 [place] [id number]. Airam Tripathi NEUT # 6.3 103/ul Normal 1.4-6.5 [facility] Comment on above: Performed By: #### C BC ####[facility] Mtynwpqlwr268[address] [place], [place] [address]Dr. Airam Tripathi Neutrophils/100 WBC (Bld) 68.8 % Normal 43.0-75.0 [facility] Comment on above: Performed By: #### C BC ####[facility] Bbpaaljdwz8376 [place] [phone]. Airam Tripathi Platelet mean volume (Bld) [Entitic vol] 9.6 fL Normal 9.5-13.5 [facility] Comment on above: Performed By: #### C BC ####[facility] Mhvpxngimt6842 [place] [id number]. Airam Tripathi PLT 295 103/ul Normal 150-450 [facility] Comment on above: Performed By: #### C BC ####[facility] Hyvtsobkya0377 [place] [phone]. Airam Deuce RBC 3.27 106/ul Critically low 4.20-5.40 [facility] Comment on above: Performed By: #### C BC ####[facility] Gibwzpmsdz101[address] [place] [address]Dr. Airam Tripathi WBC 9.1 103/ul Normal 4.0-11.0 [facility] Comment on above: Performed By: #### C BC ####[facility] Wxgjhtooiu627[address] [place], [place] [address]Dr. Airam Tripathi PROF 14(COMP METB)on 05-13-2 022 Albumin [Mass/Vol] 3.3 g/dL Critically low 3.4-5.0 [facility] Comment on above: Performed By: #### C MP ####[facility] Xxgaxtdkle1864[address] [place], [place] [address]Dr. Airam Tripathi Albumin/Globulin [Mass ratio] 1.0 {ratio} Normal [facility] Comment on above: Performed By: #### C MP ####[facility] Smqtsvbegd490[address] [place], [place] [address]Dr. Airam Tripathi ALP [Catalytic activity/Vol] 152 U/L Critically high 46-116 [facility] Comment on above: Performed By: #### C MP ####[facility] Dqzqjddcyx8867[address] [place], [place] [address]Dr. Airam Tripathi ALT [Catalytic activity/Vol] 23 U/L Normal 14-59 [facility] Comment on above: Performed By: #### C MP ####[facility] Mqukwqijgr808498 [address] [place], [place] [address]Dr. Airam Tripathi Anion gap [Moles/Vol] 12.0 mmol/L Normal [facility] Comment on above: Performed By: #### C MP ####[facility] Rnyrqtghzb005[address] [place], [place] [address]Dr. Airam Tripathi AST [Catalytic activity/Vol] 25 U/L Normal 15-37 [facility] Comment on above: Performed By: #### C MP ####[facility] Bwtfdtmtvv1480[address] [place], [place] [address]Dr. Airam Tripathi Bilirubin [Mass/Vol] 0.2 mg/dL Normal 0.2-1.0 [facility] Comment on above: Performed By: #### C MP ####[facility] Iznefkfzmx0732 [place] [address]Dr. Airam Tripathi Calcium [Mass/Vol] 8.2 mg/dL Critically low 8.5-10.1 [facility] Comment on above: Performed By: #### C MP ####[facility] Idcciihest1233 [place] [address]Dr. Airam Tripathi Chloride [Moles/Vol] 100 mmol/L Normal 98-107 [facility] Comment on above: Performed By: #### C MP ####[facility] Bdqedhklva3679 [place] [address]Dr. Airam Tripathi CO2 [Moles/Vol] 24.8 mmol/L Normal 21.0-32.0 [facility] Comment on above: Performed By: #### C MP ####[facility] Ameoowwhxw6467[address] [place], [place] [address]Dr. Airam Tripathi Creatinine [Mass/Vol] 1.46 mg/dL Critically high 0.55-1.02 [facility] Comment on above: Performed By: #### C MP ####[facility] Vmzfvfjret[address] [place], [place] [address]Dr. Airam Tripathi EGFR-AF BARBADIAN 44 mL/min/1.73m2 Critically low >=60 [facility] Comment on above: Performed By: #### C MP ####[facility] Mrtonxujch040[address] [place], [place] [address]Dr. Airam Tripathi EGFR-NON AF BARBADIAN 37 mL/min/1.73m2 Critically low >=60 [facility] Comment on above: Performed By: #### C MP ####[facility] Rtdynluasc7530[address] [place], [place] [address]Dr. Airam Tripathi Globulin (S) [Mass/Vol] 3.3 g/dL Normal [facility] Comment on above: Performed By: #### C MP ####[facility] Ezhespskxw112[address] [place], [place] [address]Dr. Airam Tripathi Glucose [Mass/Vol] 86 mg/dL Normal 74-106 [facility] Comment on above: Performed By: #### C MP ####[facility] Ttxybzbsmz67[address] [place], [place] [address]Dr. Airam Deuce Potassium [Moles/Vol] 4.8 mmol/L Normal 3.5-5.1 [facility] Comment on above: Performed By: #### C MP ####[facility] Irfpewqasl4667 [place] [address]Dr. Airam Deuce Protein [Mass/Vol] 6.6 g/dL Normal 6.4-8.2 [facility] Comment on above: Performed By: #### C MP ####[facility] Tobwawdywc6680[address] [place], [place] [address]Dr. Airam Deuce Sodium [Moles/Vol] 132 mmol/L Critically low 136-145 Th [facility] Comment on above: Performed By: #### C MP ####[facility] Gdmkrxesju4775[address] [place], [place] [address]Dr. Selenaneil Tripathi Urea nitrogen [Mass/Vol] 34.0 mg/dL Critically high 7.0-18.0 [facility] Comment on above: Performed By: #### C MP ####[facility] Iciwstbezb0713[address] [place], [place] [address]Dr. Airam Deuce Urea nitrogen/Creatinine [Mass ratio] 23.3 mg/mg Normal [facility] Comment on above: Performed By: #### C MP ####[facility] Eptshedgrj4055[address] [place], [place] [address]Dr. Airam Deuce OSMOLALITYon 05-06-2022 Osmolality [Osmolality] 284 mosm/kg Normal 275-295 [facility] Comment on above: Performed By: #### O SMO ####[facility] Ifkubwzaln189[address] [place], [place] [address]Dr. Airam Deuce XR LSPINE MIN 4 VIEWSon 11-0 XR LSPINE MIN 4 VIEWS Normal [facility] CBC AUTO DIFFon 05-03-2022 BASO # 0.1 103/ul Normal 0.0-0.1 [facility] Comment on above: Performed By: #### C BC ####[facility] Pejontuffc005698 [address] [place], [place] [address]Dr. Selenaneil Tripathi Basophils/100 WBC (Bld) 0.6 % Normal 0.2-2.0 [facility] Comment on above: Performed By: #### C BC ####[facility] Hqalffknbp0001[address] [place], [place] [address]Dr. Airam Tripathi EO # 0.3 103/ul Normal 0.0-0.7 [facility] Comment on above: Performed By: #### C BC ####[facility] Ykivjgcvdl812[address] [place], [place] [address]Dr. Airam Tripathi Eosinophils/100 WBC (Bld) 4.2 % Normal 0.9-7.0 [facility] Comment on above: Performed By: #### C BC ####[facility] Wupktltqnm607[address] [place], [place] [address]Dr. Airam Tripathi Erythrocyte distribution width (RBC) [Ratio] 13.4 % Normal 11.0-15.0 [facility] Comment on above: Performed By: #### C BC ####[facility] Nwpojgcryg297[address] [place], [place] [address]Dr. Airam Tripathi Hematocrit (Bld) [Volume fraction] 30.7 % Critically low 36.0-48.0 [facility] Comment on above: Performed By: #### C BC ####[facility] Wwwfzvxusf95[address] [place], [place] [address]Dr. Airam Tripathi Hemoglobin (Bld) [Mass/Vol] 9.6 g/dL Critically low 12.0-16.0 [facility] Comment on above: Performed By: #### C BC ####[facility] Uomewrlbvf173[address] [place], [place] [address]Dr. Airam Tripathi IG # 0.05 10e3/ul Critically high 0.00-0.03 [facility] Comment on above: Performed By: #### C BC ####[facility] Nnyjoofask022[address] [place], [place] [address]Dr. Airam Tripathi IG % 0.6 % Critically high 0.0-0.5 [facility] Comment on above: Performed By: #### C BC ####[facility] Qoxylphwnn4312[address] [place], [place] [address]DrKianna Tripathi LYMPH # 1.9 103/ul Normal 1.2-3.8 [facility] Comment on above: Performed By: #### C BC ####[facility] Gdydnpyzgf11[address] [place] [address]DrKianna Tripathi Lymphocytes/100 WBC (Bld) 23.5 % Normal 20.5-60.0 [facility] Comment on above: Performed By: #### C BC ####[facility] Hlgyijompu9339 [place] [address]DrKianna Tripathi MANUAL DIFF REQ NO Normal [facility] Comment on above: Performed By: #### C BC ####[facility] Qtvynqsgnr2332 [place] [address]DrKianna Tripathi MCH (RBC) [Entitic mass] 30.8 pg Normal 26.7-34.0 [facility] Comment on above: Performed By: #### C BC ####[facility] Hqmjetrzbo299[address] [place], [place] [address]DrKianna Tripathi MCHC (RBC) [Mass/Vol] 31.3 g/dL Normal 29.9-35.2 [facility] Comment on above: Performed By: #### C BC ####[facility] Xpdyepeynx23[address] [place], [place] [address]DrKianna Tripathi MCV (RBC) [Entitic vol] 98.4 fL Normal 81.0-99.0 [facility] Comment on above: Performed By: #### C BC ####[facility] Sdvvdlvrnx2037[address] [place], [place] [address]DrKianna Tripathi MONO # 0.6 103/ul Normal 0.3-0.8 [facility] Comment on above: Performed By: #### C BC ####[facility] Yrbqphojzk218[address] [place], [place] [address]DrKianna Tripathi Monocytes/100 WBC (Bld) 7.4 % Normal 1.7-12.0 [facility] Comment on above: Performed By: #### C BC ####[facility] Triaruixer5660[address] [place], [place] [address]DrKianna Tripathi NEUT # 5.0 103/ul Normal 1.4-6.5 [facility] Comment on above: Performed By: #### C BC ####[facility] Tbgchecwjt6192 [place] [address]Dr. Airam Tripathi Neutrophils/100 WBC (Bld) 63.7 % Normal 43.0-75.0 [facility] Comment on above: Performed By: #### C BC ####[facility] Nbdlucgpmd1373 [place] [address]Dr. Airam Tripathi Platelet mean volume (Bld) [Entitic vol] 9.5 fL Normal 9.5-13.5 [facility] Comment on above: Performed By: #### C BC ####[facility] Vmvlvfqaep3850[address] [place], [place] [address]Dr. Airam Tripathi PLT 280 103/ul Normal 150-450 [facility] Comment on above: Performed By: #### C BC ####[facility] Ufuheemwmu660[address] [place], [place] [address]Dr. Airam Tripathi RBC 3.12 106/ul Critically low 4.20-5.40 [facility] Comment on above: Performed By: #### C BC ####[facility] Pmqzjdgosx218[address] [place], [place] [address]Dr. Airam Tripathi WBC 7.9 103/ul Normal 4.0-11.0 [facility] Comment on above: Performed By: #### C BC ####[facility] Idvxejwils22[address] [place], [place] [address]Dr. Airam Tripathi PROF 14(COMP METB)on 022 Albumin [Mass/Vol] 3.1 g/dL Critically low 3.4-5.0 [facility] Comment on above: Performed By: #### C MP ####[facility] Rpjorrkqiu622398 [address] [place], [place] [address]Dr. Airam Tripathi Albumin/Globulin [Mass ratio] 0.9 {ratio} Normal [facility] Comment on above: Performed By: #### C MP ####[facility] Ofwyzuabyp088698 [address] [place], [place] [address]Dr. Airam Tripathi ALP [Catalytic activity/Vol] 140 U/L Critically high 46-116 [facility] Comment on above: Performed By: #### C MP ####[facility] Dgvvxrcngo6738 [place] [address]Dr. Airam Tripathi ALT [Catalytic activity/Vol] 24 U/L Normal 14-59 [facility] Comment on above: Performed By: #### C MP ####[facility] Jiqmbdzebg5724 [place] [phone]. Airam Tripathi Anion gap [Moles/Vol] 11.2 mmol/L Normal Th [facility] Comment on above: Performed By: #### C MP ####[facility] Yarihedlzu8064 [place] [address]Dr. Airam Deuce AST [Catalytic activity/Vol] 26 U/L Normal 15-37 [facility] Comment on above: Performed By: #### C MP ####[facility] Glcuevzcba7316[address] [place], [place] [address]Dr. Airam Deuce Bilirubin [Mass/Vol] 0.2 mg/dL Normal 0.2-1.0 [facility] Comment on above: Performed By: #### C MP ####[facility] Dbcitmieqi3565[address] [place], [place] [address]Dr. Airam Deuce Calcium [Mass/Vol] 8.3 mg/dL Critically low 8.5-10.1 Th [facility] Comment on above: Performed By: #### C MP ####[facility] Igaltxjqdf1638 [place] [address]Dr. Airam Deuce Chloride [Moles/Vol] 101 mmol/L Normal 98-107 [facility] Comment on above: Performed By: #### C MP ####[facility] Pdccfmaugo096[address] [place], [place] [address]Dr. Airam Deuce CO2 [Moles/Vol] 25.5 mmol/L Normal 21.0-32.0 [facility] Comment on above: Performed By: #### C MP ####[facility] Jukedyludm9[address] [place], [place] [address]Dr. Airam Deuce Creatinine [Mass/Vol] 1.43 mg/dL Critically high 0.55-1.02 [facility] Comment on above: Performed By: #### C MP ####[facility] Euodszwhtr1709 [place] [address]Dr. Airam Deuce EGFR-AF BARBADIAN 45 mL/min/1.73m2 Critically low >=60 [facility] Comment on above: Performed By: #### C MP ####[facility] Iftordiuny9973 [place] [phone]. Airam Deuce EGFR-NON AF BAR[place]IAN 37 mL/min/1.73m2 Critically low >=60 [facility] Comment on above: Performed By: #### C MP ####[facility] Czijtmmxdc6299 [place] [address]Dr. Airam Tripathi Globulin (S) [Mass/Vol] 3.3 g/dL Normal [facility] Comment on above: Performed By: #### C MP ####[facility] Ybkosuuhvk7819 [place] [address]Dr. Airam Tripathi Glucose [Mass/Vol] 74 mg/dL Normal 74-106 [facility] Comment on above: Performed By: #### C MP ####[facility] Cqbarjeeer9554 [place] [address]Dr. Airam Tripathi Potassium [Moles/Vol] 4.7 mmol/L Normal 3.5-5.1 [facility] Comment on above: Performed By: #### C MP ####[facility] Pfmrnhihea2533 [place] [address]Dr. Airam Tripathi Protein [Mass/Vol] 6.4 g/dL Normal 6.4-8.2 [facility] Comment on above: Performed By: #### C MP ####[facility] Wnxipoyfce4499 [place] [address]Dr. Airam Tripathi Sodium [Moles/Vol] 133 mmol/L Critically low 136-145 Th [facility] Comment on above: Performed By: #### C MP ####[facility] Udtkqzaqga4310 [place] [id number]. Airam Tripathi Urea nitrogen [Mass/Vol] 38.0 mg/dL Critically high 7.0-18.0 [facility] Comment on above: Performed By: #### C MP ####[facility] Kuflnokaya766398 [address] [place], [place] [address]Dr. Airam Tripathi Urea nitrogen/Creatinine [Mass ratio] 26.6 mg/mg Normal [facility] Comment on above: Performed By: #### C MP ####[facility] Sfuokroelv685[address] [place], [place] [address]Dr. Airam Tripathi OSMOLALITYon 04-29-2022 Osmolality [Osmolality] 292 mosm/kg Normal 275-295 [facility] Comment on above: Performed By: #### O SMO ####[facility] Fhjnaynirs728[address] [place], [place] [address]Dr. Airam Tripathi CBC AUTO DIFFon 04-28-2022 BASO # 0.0 103/ul Normal 0.0-0.1 [facility] Comment on above: Performed By: #### C BC ####[facility] Himqdyvpqr514[address] [place], [place] [address]DrKianna Tripathi Basophils/100 WBC (Bld) 0.5 % Normal 0.2-2.0 [facility] Comment on above: Performed By: #### C BC ####[facility] Bteimzwnut9830[address] [place], [place] [address]DrKianna Tripathi EO # 0.2 103/ul Normal 0.0-0.7 [facility] Comment on above: Performed By: #### C BC ####[facility] Fadmlmancq980[address] [place], [place] [address]Dr. Airam Tripathi Eosinophils/100 WBC (Bld) 3.4 % Normal 0.9-7.0 [facility] Comment on above: Performed By: #### C BC ####[facility] Ltpyhomymf555[address] [place], [place] [address]Dr. Airam Tripathi Erythrocyte distribution width (RBC) [Ratio] 13.4 % Normal 11.0-15.0 [facility] Comment on above: Performed By: #### C BC ####[facility] Fvmsxbwadg3044[address] [place], [place] [address]Dr. Airam Tripathi Hematocrit (Bld) [Volume fraction] 31.6 % Critically low 36.0-48.0 [facility] Comment on above: Performed By: #### C BC ####[facility] Dfijerbpsn7740 [place] [address]DrKianna Airam Tripathi Hemoglobin (Bld) [Mass/Vol] 9.8 g/dL Critically low 12.0-16.0 [facility] Comment on above: Performed By: #### C BC ####[facility] Ojhortwnzj348398 [address] [place], [place] [address]DrKianna Airam Tripathi IG # 0.02 10e3/ul Normal 0.00-0.03 [facility] Comment on above: Performed By: #### C BC ####[facility] Otwkjieewq200[address] [place], [place] [address]DrKianna Airam Deuce IG % 0.3 % Normal 0.0-0.5 [facility] Comment on above: Performed By: #### C BC ####[facility] Mbsuktsany855[address] [place], [place] [address]DrKianna Airam Deuce LYMPH # 1.3 103/ul Normal 1.2-3.8 [facility] Comment on above: Performed By: #### C BC ####[facility] Xtzgtipzfl312[address] [place], [place] [address]DrKianna Airam Tripathi Lymphocytes/100 WBC (Bld) 21.7 % Normal 20.5-60.0 [facility] Comment on above: Performed By: #### C BC ####[facility] Wxpuaejifz39039[address] [place], [place] [address]DrKianna Airam Deuce MANUAL DIFF REQ NO Normal [facility] Comment on above: Performed By: #### C BC ####[facility] Xlfbtzbsru786[address] [place], [place] [address]DrKianna Airam Deuce MCH (RBC) [Entitic mass] 30.7 pg Normal 26.7-34.0 [facility] Comment on above: Performed By: #### C BC ####[facility] Ptoxxyfwie0165[address] [place], [place] [address]DrKianna Airam Deuce MCHC (RBC) [Mass/Vol] 31.0 g/dL Normal 29.9-35.2 [facility] Comment on above: Performed By: #### C BC ####[facility] Ndgzeoajnf8090 [place] [address]DrKianna Tripathi MCV (RBC) [Entitic vol] 99.1 fL Critically high 81.0-99.0 [facility] Comment on above: Performed By: #### C BC ####[facility] Rjkuczbzon8923[address] [place], [place] [address]DrKianna Tripathi MONO # 0.3 103/ul Normal 0.3-0.8 [facility] Comment on above: Performed By: #### C BC ####[facility] Ftgwthpngf946[address] [place], [place] [address]DrKianna Tripathi Monocytes/100 WBC (Bld) 5.2 % Normal 1.7-12.0 [facility] Comment on above: Performed By: #### C BC ####[facility] Hhmrmyyqxu555[address] [place], [place] [address]DrKianna Tripathi NEUT # 4.1 103/ul Normal 1.4-6.5 [facility] Comment on above: Performed By: #### C BC ####[facility] Zmzwwfbpod928[address] [place], [place] [address]DrKianna Tripathi Neutrophils/100 WBC (Bld) 68.9 % Normal 43.0-75.0 [facility] Comment on above: Performed By: #### C BC ####[facility] Emilksrveg743[address] [place], [place] [address]DrKianna Tripathi Platelet mean volume (Bld) [Entitic vol] 9.8 fL Normal 9.5-13.5 [facility] Comment on above: Performed By: #### C BC ####[facility] Mlvwqvsffq4526[address] [place], [place] [address]DrKianna Tripathi PLT 329 103/ul Normal 150-450 [facility] Comment on above: Performed By: #### C BC ####[facility] Mngfgvrrrp568[address] [place], [place] [address]DrKianna Tripathi RBC 3.19 106/ul Critically low 4.20-5.40 [facility] Comment on above: Performed By: #### C BC ####[facility] Fiijxrpeof0235 [place] [address]Dr. Airam Tripathi WBC 5.9 103/ul Normal 4.0-11.0 [facility] Comment on above: Performed By: #### C BC ####[facility] Ytwmsekzgd574[address] [place], [place] [address]DrKianna Tripathi PROF 14(COMP METB)on 022 Albumin [Mass/Vol] 2.9 g/dL Critically low 3.4-5.0 Th e [facility] Comment on above: Performed By: #### C MP ####[facility] Bjnghbgeug0599[address] [place], [place] [address]Dr. Airam Tripathi Albumin/Globulin [Mass ratio] 0.9 {ratio} Normal [facility] Comment on above: Performed By: #### C MP ####[facility] Zcsfrwhtau084[address] [place], [place] [address]Dr. Airam Tripathi ALP [Catalytic activity/Vol] 127 U/L Critically high 46-116 [facility] Comment on above: Performed By: #### C MP ####[facility] Wgegzevhcn923[address] [place], [place] [address]Dr. Airam Tripathi ALT [Catalytic activity/Vol] 22 U/L Normal 14-59 [facility] Comment on above: Performed By: #### C MP ####[facility] Ndgkieqhxh8468[address] [place], [place] [address]Dr. Airam Tripathi Anion gap [Moles/Vol] 6.7 mmol/L Normal [facility] Comment on above: Performed By: #### C MP ####[facility] Hstpaoytyt176[address] [place], [place] [address]Dr. Airam Tripathi AST [Catalytic activity/Vol] 24 U/L Normal 15-37 [facility] Comment on above: Performed By: #### C MP ####[facility] Jhcgmmzidl833[address] [place], [place] [address]Dr. Airam Tripathi Bilirubin [Mass/Vol] 0.2 mg/dL Normal 0.2-1.0 [facility] Comment on above: Performed By: #### C MP ####[facility] Stnqxxulgo468[address] [place], [place] [address]Dr. Airam Tripathi Calcium [Mass/Vol] 8.2 mg/dL Critically low 8.5-10.1 Th e [facility] Comment on above: Performed By: #### C MP ####[facility] Xxxyopqagf0436[address] [place], [place] [address]Dr. Airam Deuce Chloride [Moles/Vol] 105 mmol/L Normal 98-107 [facility] Comment on above: Performed By: #### C MP ####[facility] Jlbbynjfbj6665[address] [place], [place] [address]Dr. Airam Tripathi CO2 [Moles/Vol] 28.2 mmol/L Normal 21.0-32.0 [facility] Comment on above: Performed By: #### C MP ####[facility] Tpdbwjkrux532[address] [place], [place] [address]Dr. Airam Deuce Creatinine [Mass/Vol] 1.22 mg/dL Critically high 0.55-1.02 [facility] Comment on above: Performed By: #### C MP ####[facility] Zuadwmdrsi5838[address] [place], [place] [address]Dr. Airam Deuce EGFR-AF BARBADIAN 54 mL/min/1.73m2 Critically low >=60 [facility] Comment on above: Performed By: #### C MP ####[facility] Iqjpsetyph[address] [place], [place] [address]Dr. Airam Deuce EGFR-NON AF BARBADIAN 45 mL/min/1.73m2 Critically low >=60 [facility] Comment on above: Performed By: #### C MP ####[facility] Ojnixftwdn59[address] [place], [place] [address]Dr. Airam Tripathi Globulin (S) [Mass/Vol] 3.2 g/dL Normal [facility] Comment on above: Performed By: #### C MP ####[facility] Atgmexqgyv024[address] [place], [place] [address]Dr. Airam Tripathi Glucose [Mass/Vol] 77 mg/dL Normal 74-106 [facility] Comment on above: Performed By: #### C MP ####[facility] Xfpbmygtvm[address] [place] [address]Dr. Airam Tripathi Potassium [Moles/Vol] 4.9 mmol/L Normal 3.5-5.1 [facility] Comment on above: Performed By: #### C MP ####[facility] Hjlmbakhqm9813[address] [place], [place] [address]Dr. Airam Tripathi Protein [Mass/Vol] 6.1 g/dL Critically low 6.4-8.2 Th [facility] Comment on above: Performed By: #### C MP ####[facility] Zopqbpivcn9414[address] [place], [place] [address]Dr. Airam Tripathi Sodium [Moles/Vol] 135 mmol/L Critically low 136-145 Th [facility] Comment on above: Performed By: #### C MP ####[facility] Gwhyxfhkro25[address] [place], [place] [address]Dr. Airam Tripathi Urea nitrogen [Mass/Vol] 30.0 mg/dL Critically high 7.0-18.0 [facility] Comment on above: Performed By: #### C MP ####[facility] Umtvhjobli5788[address] [place], [place] [address]Dr. Airam Tripathi Urea nitrogen/Creatinine [Mass ratio] 24.6 mg/mg Normal [facility] Comment on above: Performed By: #### C MP ####[facility] Nwpiadrgfq3637[address] [place], [place] [address]Dr. Airam Tripathi OSMOLALITYon 04-23-2022 Osmolality [Osmolality] 289 mosm/kg Normal 275-295 [facility] Comment on above: Performed By: #### O SMO ####[facility] Qbuqwgfdpc56299[address] [place], [place] [address]DrKianna Tripathi CBC AUTO DIFFon 04-20-2022 BASO # 0.0 103/ul Normal 0.0-0.1 [facility] Comment on above: Performed By: #### C BC ####[facility] Ohmrkhmzir357[address] [place], [place] [address]Dr. Airam Tripathi Basophils/100 WBC (Bld) 0.4 % Normal 0.2-2.0 [facility] Comment on above: Performed By: #### C BC ####[facility] Ukjpxazfzl040398 [address] [place], [place] [address]Dr. Airam Tripathi EO # 0.2 103/ul Normal 0.0-0.7 [facility] Comment on above: Performed By: #### C BC ####[facility] Gyojabgexw238[address] [place], [place] [address]Dr. Airam Tripathi Eosinophils/100 WBC (Bld) 3.1 % Normal 0.9-7.0 [facility] Comment on above: Performed By: #### C BC ####[facility] Nmbwkmleyq836[address] [place], [place] [address]Dr. Airam Tripathi Erythrocyte distribution width (RBC) [Ratio] 13.8 % Normal 11.0-15.0 [facility] Comment on above: Performed By: #### C BC ####[facility] Racvxtufqx1085[address] [place], [place] [address]Dr. Airam Tripathi Hematocrit (Bld) [Volume fraction] 29.5 % Critically low 36.0-48.0 [facility] Comment on above: Performed By: #### C BC ####[facility] Yqijazvxxg8814[address] [place], [place] [address]Dr. Airam Trpiathi Hemoglobin (Bld) [Mass/Vol] 9.2 g/dL Critically low 12.0-16.0 [facility] Comment on above: Performed By: #### C BC ####[facility] Lhwjzgevcb366[address] [place], [place] [address]Dr. Airam Tripathi IG # 0.02 10e3/ul Normal 0.00-0.03 [facility] Comment on above: Performed By: #### C BC ####[facility] Tcgiwytqsx866[address] [place], [place] [address]Dr. Airam Tripathi IG % 0.4 % Normal 0.0-0.5 [facility] Comment on above: Performed By: #### C BC ####[facility] Cubphencam6320[address] [place], [place] [address]Dr. Airam Tripathi LYMPH # 0.8 103/ul Critically low 1.2-3.8 [facility] Comment on above: Performed By: #### C BC ####[facility] Ckyrzwazua[address] [place] [address]Dr. Selenaneil Tripathi Lymphocytes/100 WBC (Bld) 14.0 % Critically low 20.5-60.0 [facility] Comment on above: Performed By: #### C BC ####[facility] Qgjlwfuryi634[address] [place], [place] [address]Dr. Airam Tripathi MANUAL DIFF REQ NO Normal [facility] Comment on above: Performed By: #### C BC ####[facility] Xuuoavbwmx9623[address] [place], [place] [address]Dr. Airam Tripathi MCH (RBC) [Entitic mass] 30.4 pg Normal 26.7-34.0 [facility] Comment on above: Performed By: #### C BC ####[facility] Euliupmuhw501[address] [place], [place] [address]Dr. Selenaneil Tripathi MCHC (RBC) [Mass/Vol] 31.2 g/dL Normal 29.9-35.2 [facility] Comment on above: Performed By: #### C BC ####[facility] Wbkhbyklfi0715[address] [place], [place] [address]Dr. Airam Tripathi MCV (RBC) [Entitic vol] 97.4 fL Normal 81.0-99.0 [facility] Comment on above: Performed By: #### C BC ####[facility] Gusilhpwkw159[address] [place], [place] [address]Dr. Airam Tripathi MONO # 0.3 103/ul Normal 0.3-0.8 [facility] Comment on above: Performed By: #### C BC ####[facility] Kghusmvdeh488[address] [place], [place] [address]Dr. Airam Tripathi Monocytes/100 WBC (Bld) 5.6 % Normal 1.7-12.0 [facility] Comment on above: Performed By: #### C BC ####[facility] Eybhatkzjy601[address] [place], [place] [address]Dr. Airam Tripathi NEUT # 4.2 103/ul Normal 1.4-6.5 [facility] Comment on above: Performed By: #### C BC ####[facility] Npbloasilh6897 [place] [address]Dr. Airam Tripathi Neutrophils/100 WBC (Bld) 76.5 % Critically high 43.0-75.0 [facility] Comment on above: Performed By: #### C BC ####[facility] Ebrpmmwmle7[address] [place] [address]Dr. Airam Tripathi Platelet mean volume (Bld) [Entitic vol] 9.4 fL Critically low 9.5-13.5 [facility] Comment on above: Performed By: #### C BC ####[facility] Vubqasapoe[address] [place] [address]Dr. Selenaneil Deuce PLT 250 103/ul Normal 150-450 [facility] Comment on above: Performed By: #### C BC ####[facility] Jckkpdzgqs0555[address] [place], [place] [address]Dr. Selenaneil Deuce RBC 3.03 106/ul Critically low 4.20-5.40 [facility] Comment on above: Performed By: #### C BC ####[facility] Lfvwaduobf788[address] [place], [place] [address]Dr. Airam Deuce WBC 5.5 103/ul Normal 4.0-11.0 [facility] Comment on above: Performed By: #### C BC ####[facility] Kiwwerdene[address] [place], [place] [address]DrKianna Tripathi PROF 14(COMP METB)on 022 Albumin [Mass/Vol] 2.7 g/dL Critically low 3.4-5.0 [facility] Comment on above: Performed By: #### C MP ####[facility] Ltzrhjpsbf629[address] [place], [place] [address]Dr. Airam Tripathi Albumin/Globulin [Mass ratio] 0.9 {ratio} Normal [facility] Comment on above: Performed By: #### C MP ####[facility] Gtvntioppp216[address] [place], [place] [address]Dr. Airam Deuce ALP [Catalytic activity/Vol] 113 U/L Normal 46-116 [facility] Comment on above: Performed By: #### C MP ####[facility] Gdpglhbzhy58[address] [place] [address]Dr. Airam Tripathi ALT [Catalytic activity/Vol] 20 U/L Normal 14-59 [facility] Comment on above: Performed By: #### C MP ####[facility] Zvupktozqv2786 [place] [address]Dr. Airam Deuce Anion gap [Moles/Vol] 11.1 mmol/L Normal Th [facility] Comment on above: Performed By: #### C MP ####[facility] Ikhfrkthjl6095[address] [place], [place] [address]Dr. Airam Deuce AST [Catalytic activity/Vol] 19 U/L Normal 15-37 [facility] Comment on above: Performed By: #### C MP ####[facility] Hutrtcrbti3975[address] [place], [place] [address]Dr. Airam Deuce Bilirubin [Mass/Vol] 0.2 mg/dL Normal 0.2-1.0 [facility] Comment on above: Performed By: #### C MP ####[facility] Tjoiiogoka102[address] [place], [place] [address]Dr. Airam Deuce Calcium [Mass/Vol] 8.3 mg/dL Critically low 8.5-10.1 [facility] Comment on above: Performed By: #### C MP ####[facility] Vgkobjpnnu01[address] [place] [address]Dr. Selenaneil Tripathi Chloride [Moles/Vol] 104 mmol/L Normal 98-107 [facility] Comment on above: Performed By: #### C MP ####[facility] Xenotnwvhu27029[address] [place], [place] [address]Dr. Airam Tripathi CO2 [Moles/Vol] 25.3 mmol/L Normal 21.0-32.0 [facility] Comment on above: Performed By: #### C MP ####[facility] Ooducdychr4525[address] [place], [place] [address]Dr. Airam Tripathi Creatinine [Mass/Vol] 1.33 mg/dL Critically high 0.55-1.02 [facility] Comment on above: Performed By: #### C MP ####[facility] Idwhgrunoj1088 [place] [id number]. Airam Deuce EGFR-AF [place] 49 mL/min/1.73m2 Critically low >=60 [facility] Comment on above: Performed By: #### C MP ####[facility] Rizwoprumo7384 [place] [id number]. Selenaneil Deuce EGFR-NON AF [place]IAN 41 mL/min/1.73m2 Critically low >=60 [facility] Comment on above: Performed By: #### C MP ####[facility] Rutmdpleox5734 [place] [address]Dr. Aiarm Tripathi Globulin (S) [Mass/Vol] 3.1 g/dL Normal [facility] Comment on above: Performed By: #### C MP ####[facility] Jisbfxxdjh5062 [place] [address]Dr. Airam Tripathi Glucose [Mass/Vol] 88 mg/dL Normal 74-106 [facility] Comment on above: Performed By: #### C MP ####[facility] Zuxaqkayqn8957 [place] [address]Dr. Airam Tripathi Potassium [Moles/Vol] 5.4 mmol/L Critically high 3.5-5.1 [facility] Comment on above: Performed By: #### C MP ####[facility] Cnyxplplpx5079 [place] [id number]. Airam Tripathi Protein [Mass/Vol] 5.8 g/dL Critically low 6.4-8.2 Th [facility] Comment on above: Performed By: #### C MP ####[facility] Gxtomspkme255[address] [place], [place] [address]Dr. Airam Tripathi Sodium [Moles/Vol] 135 mmol/L Critically low 136-145 Th [facility] Comment on above: Performed By: #### C MP ####[facility] Sqgzuoeuru9977[address] [place], [place] [address]Dr. Airam Tripathi Urea nitrogen [Mass/Vol] 38.0 mg/dL Critically high 7.0-18.0 [facility] Comment on above: Performed By: #### C MP ####[facility] Nyreogsvqo770[address] [place], [place] [address]Dr. Airam Tripathi Urea nitrogen/Creatinine [Mass ratio] 28.6 mg/mg Normal [facility] Comment on above: Performed By: #### C MP ####[facility] Ulfswppfzp7[address] [place], [place] [address]Dr. Airam Tripathi OSMOLALITYon 04-15-2022 Osmolality [Osmolality] 284 mosm/kg Normal 275-295 [facility] Comment on above: Performed By: #### O SMO ####[facility] Ijzbfzdfki818[address] [place], [place] [address]Dr. Airam Tripathi CBC AUTO DIFFon 04-14-2022 BASO # 0.0 103/ul Normal 0.0-0.1 [facility] Comment on above: Performed By: #### C BC ####[facility] Nctspcdsdt7[address] [place], [place] [address]Dr. Airam Tripathi Basophils/100 WBC (Bld) 0.5 % Normal 0.2-2.0 [facility] Comment on above: Performed By: #### C BC ####[facility] Ivvypgpxwi9938[address] [place], [place] [address]Dr. Airam Tripathi EO # 0.3 103/ul Normal 0.0-0.7 [facility] Comment on above: Performed By: #### C BC ####[facility] Ffzbinozso570[address] [place], [place] [address]Dr. Airam Tripathi Eosinophils/100 WBC (Bld) 3.6 % Normal 0.9-7.0 [facility] Comment on above: Performed By: #### C BC ####[facility] Uviiqlkfiv55119[address] [place], [place] [address]Dr. Airam Tripathi Erythrocyte distribution width (RBC) [Ratio] 13.4 % Normal 11.0-15.0 [facility] Comment on above: Performed By: #### C BC ####[facility] Puknsrymet[address] [place] [address]Dr. Airam Tripathi Hematocrit (Bld) [Volume fraction] 30.6 % Critically low 36.0-48.0 [facility] Comment on above: Performed By: #### C BC ####[facility] Lwsvboxvjc0545 [place] [address]Dr. Airam Tripathi Hemoglobin (Bld) [Mass/Vol] 9.7 g/dL Critically low 12.0-16.0 [facility] Comment on above: Performed By: #### C BC ####[facility] Fuhvhwncjy89[address] [place] [address]Dr. Airam Deuce IG # 0.08 10e3/ul Critically high 0.00-0.03 [facility] Comment on above: Performed By: #### C BC ####[facility] Twoxxofsbi860[address] [place], [place] [address]Dr. Selenaneil Tripathi IG % 0.9 % Critically high 0.0-0.5 [facility] Comment on above: Performed By: #### C BC ####[facility] Rchsritzmd638[address] [place], [place] [address]Dr. Airam Tripathi LYMPH # 2.1 103/ul Normal 1.2-3.8 [facility] Comment on above: Performed By: #### C BC ####[facility] Abrgdnpjpm28[address] [place] [address]Dr. Selenaneil Tripathi Lymphocytes/100 WBC (Bld) 24.2 % Normal 20.5-60.0 [facility] Comment on above: Performed By: #### C BC ####[facility] Ypgkbdyqjf0[address] [place] [address]DrKianna Selenaneil Tripathi MANUAL DIFF REQ NO Normal [facility] Comment on above: Performed By: #### C BC ####[facility] Earfnqufdl332[address] [place], [place] [address]DrKianna Selenaneil Tripathi MCH (RBC) [Entitic mass] 30.4 pg Normal 26.7-34.0 [facility] Comment on above: Performed By: #### C BC ####[facility] Lkupmevngl44[address] [place], [place] [address]Dr. Airam Tripathi MCHC (RBC) [Mass/Vol] 31.7 g/dL Normal 29.9-35.2 [facility] Comment on above: Performed By: #### C BC ####[facility] Vspihxqttm3128 [place] [phone]. Airam Tripathi MCV (RBC) [Entitic vol] 95.9 fL Normal 81.0-99.0 [facility] Comment on above: Performed By: #### C BC ####[facility] Hghcpkwgfm0134 [place] [phone]. Airam Deuce MONO # 0.5 103/ul Normal 0.3-0.8 [facility] Comment on above: Performed By: #### C BC ####[facility] Ftikxqjezg8380 [place] [address]Dr. Airam Tripathi Monocytes/100 WBC (Bld) 6.0 % Normal 1.7-12.0 [facility] Comment on above: Performed By: #### C BC ####[facility] Terkxxqdjm4690 [place] [address]Dr. Selenaneil Deuce NEUT # 5.6 103/ul Normal 1.4-6.5 [facility] Comment on above: Performed By: #### C BC ####[facility] Dfxkjdlbki0697 [place] [phone]. Selenaneil Tripathi Neutrophils/100 WBC (Bld) 64.8 % Normal 43.0-75.0 [facility] Comment on above: Performed By: #### C BC ####[facility] Yviajoznol5322 [place] [phone]. Airam Deuce Platelet mean volume (Bld) [Entitic vol] 9.2 fL Critically low 9.5-13.5 [facility] Comment on above: Performed By: #### C BC ####[facility] Xfgtydknqj6566 [place] [phone]. Selenaneil Deuce PLT 296 103/ul Normal 150-450 [facility] Comment on above: Performed By: #### C BC ####[facility] Dysikknvfe3883 [place] [address]Dr. Airam Deuce RBC 3.19 106/ul Critically low 4.20-5.40 [facility] Comment on above: Performed By: #### C BC ####[facility] Zupcptqxdc9113 [place] [address]Dr. Airam Deuce WBC 8.6 103/ul Normal 4.0-11.0 [facility] Comment on above: Performed By: #### C BC ####[facility] Nkpupetfnc090[address] [place], [place] [address]Dr. Airam Tripathi PROF 14(COMP METB)on 022 Albumin [Mass/Vol] 3.2 g/dL Critically low 3.4-5.0 e [facility] Comment on above: Performed By: #### C MP ####[facility] Eknjjevjqj677[address] [place], [place] [address]Dr. Airam Tripathi Albumin/Globulin [Mass ratio] 1.0 {ratio} Normal [facility] Comment on above: Performed By: #### C MP ####[facility] Pfjouwhzfk485[address] [place], [place] [address]Dr. Selenaneil Tripathi ALP [Catalytic activity/Vol] 126 U/L Critically high 46-116 [facility] Comment on above: Performed By: #### C MP ####[facility] Ovxblxedva445[address] [place], [place] [address]Dr. Airam Tripathi ALT [Catalytic activity/Vol] 27 U/L Normal 14-59 [facility] Comment on above: Performed By: #### C MP ####[facility] Omtetusvow8528[address] [place], [place] [address]Dr. Airam Tripathi Anion gap [Moles/Vol] 9.6 mmol/L Normal [facility] Comment on above: Performed By: #### C MP ####[facility] Gpbhgedlrx213[address] [place], [place] [address]Dr. Airam Tripathi AST [Catalytic activity/Vol] 25 U/L Normal 15-37 [facility] Comment on above: Performed By: #### C MP ####[facility] Xvchtocodf2265[address] [place], [place] [address]Dr. Airam Tripathi Bilirubin [Mass/Vol] 0.3 mg/dL Normal 0.2-1.0 [facility] Comment on above: Performed By: #### C MP ####[facility] Gugdscxtkd394[address] [place], [place] [address]Dr. Airam Tripathi Calcium [Mass/Vol] 8.1 mg/dL Critically low 8.5-10.1 Th e [facility] Comment on above: Performed By: #### C MP ####[facility] Bhkozvbsxt014[address] [place], [place] [address]Dr. Airam Tripathi Chloride [Moles/Vol] 100 mmol/L Normal 98-107 [facility] Comment on above: Performed By: #### C MP ####[facility] Cvhvjgmthy7612[address] [place], [place] [address]Dr. Airam Tripathi CO2 [Moles/Vol] 26.5 mmol/L Normal 21.0-32.0 [facility] Comment on above: Performed By: #### C MP ####[facility] Igifzcdmfk57[address] [place], [place] [address]Dr. Airam Tripathi Creatinine [Mass/Vol] 1.52 mg/dL Critically high 0.55-1.02 [facility] Comment on above: Performed By: #### C MP ####[facility] Ceqxcfzfxy3764[address] [place], [place] [address]Dr. Airam Tripathi EGFR-AF [place]IAN 42 mL/min/1.73m2 Critically low >=60 [facility] Comment on above: Performed By: #### C MP ####[facility] Uqrbygrrbu124[address] [place], [place] [address]Dr. Airam Deuce EGFR-NON AF [place]IAN 35 mL/min/1.73m2 Critically low >=60 [facility] Comment on above: Performed By: #### C MP ####[facility] Uiyfqxmbpu053[address] [place], [place] [address]Dr. Airam Deuce Globulin (S) [Mass/Vol] 3.3 g/dL Normal [facility] Comment on above: Performed By: #### C MP ####[facility] Vmnsqascut[address] [place], [place] [address]Dr. Airam Tripathi Glucose [Mass/Vol] 75 mg/dL Normal 74-106 [facility] Comment on above: Performed By: #### C MP ####[facility] Ifftvdporo6522 [place] [address]Dr. Airam Tripathi Potassium [Moles/Vol] 4.1 mmol/L Normal 3.5-5.1 [facility] Comment on above: Performed By: #### C MP ####[facility] Ualcabjvfs520[address] [place], [place] [address]Dr. Airam Tripathi Protein [Mass/Vol] 6.5 g/dL Normal 6.4-8.2 [facility] Comment on above: Performed By: #### C MP ####[facility] Rokycpmete575[address] [place], [place] [address]Dr. Airam Tripathi Sodium [Moles/Vol] 132 mmol/L Critically low 136-145 Th [facility] Comment on above: Performed By: #### C MP ####[facility] Slmybikjml038[address] [place], [place] [address]Dr. Airam Tripathi Urea nitrogen [Mass/Vol] 40.0 mg/dL Critically high 7.0-18.0 [facility] Comment on above: Performed By: #### C MP ####[facility] Ysqspgvcpd739[address] [place], [place] [address]Dr. Airam Tripathi Urea nitrogen/Creatinine [Mass ratio] 26.3 mg/mg Normal [facility] Comment on above: Performed By: #### C MP ####[facility] Sokhpvvpbw850[address] [place], [place] [address]Dr. Airam Tripathi OSMOLALITYon 04-10-2022 Osmolality [Osmolality] 280 mosm/kg Normal 275-295 [facility] Comment on above: Performed By: #### O SMO ####[facility] Jdxkxundea905[address] [place], [place] [address]Dr. Airam Tripathi PTH INTACTon 04-09-2022 PTH, Intact 89 pg/mL Critically high 15-65 [facility] Comment on above: Performed By: #### P THINT ####[facility] Fhegiczhyl12[address] [place] [address]Dr. Airam Deuce CBC W MANUAL DIFFon 04-08-20 22 ATYPICAL LYMPH # Normal [facility] Comment on above: Performed By: #### C CHRISTEN ####[facility] Lscgglajsu032[address] [place] [address]Dr. Airam Tripathi ATYPICAL LYMPH % Normal [facility] Comment on above: Performed By: #### C CHRISTEN ####[facility] Wrjyozlpmf624[address] [place], [place] [address]Dr. Selenaneil Deuce BAND # Normal 0.0-0.3 [facility] Comment on above: Performed By: #### C CHRISTEN ####[facility] Emmxkwljbq2545[address] [place], [place] [address]Dr. Airam Tripathi BAND % Normal 0-5 [facility] Comment on above: Performed By: #### C CHRISTEN ####[facility] Lhiajzylcl[address] [place], [place] [address]Dr. Airam Tripathi BASOM # 0.00 103/ul Normal 0.00-0.10 [facility] Comment on above: Performed By: #### C CHRISTEN ####[facility] Kvxsbdncbo776[address] [place], [place] [address]Dr. Airam Tripathi BASOM % 0.0 % Critically low 0.2-2.0 [facility] Comment on above: Performed By: #### C CHRISTEN ####[facility] Ajetpprfir913[address] [place], [place] [address]Dr. Selenaneil Deuce BLAST # Normal [facility] Comment on above: Performed By: #### C CHRISTEN ####[facility] Hqhlcekvdk137[address] [place], [place] [address]Dr. Airam Tripathi BLAST % Normal [facility] Comment on above: Performed By: #### C CHRISTEN ####[facility] Ziiheqqqxd9230[address] [place], [place] [address]Dr. Airam Tripathi CORRECTED WBC Normal 4.0-11.0 [facility] Comment on above: Performed By: #### C CHRISTEN ####[facility] Anajsibshf[address] [place], [place] [address]DrKianna Tripathi EOS # 0.00 103/ul Normal 0.00-0.70 [facility] Comment on above: Performed By: #### C CHRISTEN ####[facility] W[address]mydstk[address] [place], [place] [address]IqKianna Tripathi EOS% 0.0 % Critically low 0.9-7.0 [facility] Comment on above: Performed By: #### C CHRISTEN ####[facility] Rljmvwakhs1240 [place], [place] [address]Rq. Airam Tripathi HCT 29.7 % Critically low 36.0-48.0 [facility] Comment on above: Performed By: #### C CHRISTEN ####[facility] Hrfipfoknf07[address] [place] [id number] Tripathi HGB 9.5 g/dl Critically low 12.0-16.0 [facility] Comment on above: Performed By: #### C CHRISTEN ####[facility] Wocjtnag[address] [place], [place] [id number] Tripathi LYMPHM # 0.42 103/ul Critically low 1.20-3.80 [facility] Comment on above: Performed By: #### C CHRISTEN ####[facility] E[address]zmuzeb[address] [place] [id number] Tripathi LYMPHM% 7.0 % Critically low 20.5-60.0 [facility] Comment on above: Performed By: #### Jodee VELÁSQUEZ ####[facility] Kblqzhtolo0528 [place] [id number]. Airam Tripathi MCH 30.9 pg Normal 26.7-34.0 [facility] Comment on above: Performed By: #### C CHRISTEN ####[facility] Glzjqncesv8822 [place] [id number] Tripathi MCHC 32.0 g/dl Normal 29.9-35.2 [facility] Comment on above: Performed By: #### C CHRISTEN ####[facility] Fxbnditsme7599 [place] [id number] Tripathi MCV 96.7 fL Normal 81.0-99.0 [facility] Comment on above: Performed By: #### C CHRISTEN ####[facility] Gesjsxuneq8154 [place] [phone]. Airam Tripathi METAMYELOCYTE # Normal [facility] Comment on above: Performed By: #### C CHRISTEN ####[facility] Zqiehkfhui3978 [place] [id number]. Airam Tripathi METAMYELOCYTE % Normal [facility] Comment on above: Performed By: #### C CHRISTEN ####[facility] Jagipdbmyb4104 [place] [address]Dr. Airam Tripathi MONOM# 0.36 103/ul Normal 0.30-0.80 [facility] Comment on above: Performed By: #### C CHRISTEN ####[facility] Zbixpnoklt[address] [place], [place] [address]Dr. Airam Tripathi MONOM% 6.0 % Normal 1.7-12.0 [facility] Comment on above: Performed By: #### C CHRISTEN ####[facility] Cashfqnplr[address] [place], [place] [address]Dr. Airam Tripathi MPV 9.5 fL Normal 9.5-13.5 [facility] Comment on above: Performed By: #### Jodee VELÁSQUEZ ####[facility] Koxlqsotkl99[address] [place], [place] [address]Dr. Airam Tripathi MYELOCYTE # Normal [facility] Comment on above: Performed By: #### Jodee VELÁSQUEZ ####[facility] Rtkdojcuae346[address] [place], [place] [address]Dr. Airam Tripathi MYELOCYTE % Normal [facility] Comment on above: Performed By: #### Jodee VELÁSQUEZ ####[facility] Jwgovheufk[address] [place], [place] [address]Dr. Airam Tripathi NRBC Normal [facility] Comment on above: Performed By: #### C CHRISTEN ####[facility] Nreizsausm3429 [place] [phone]. Selenaneil Tripathi PLT 185 103/ul Normal 150-450 [facility] Comment on above: Performed By: #### C CHRISTEN ####[facility] Ipcpykgrey5410 [place], [place] [address]Hv. Airam Tripathi RBC 3.07 106/ul Critically low 4.20-5.40 [facility] Comment on above: Performed By: #### Jodee VELÁSQUEZ ####[facility] Kppufsvfvy8502 [place], [place] [address]So. Airam Tripathi RDW 13.6 % Normal 11.0-15.0 [facility] Comment on above: Performed By: #### Jodee VELÁSQUEZ ####[facility] Otzbdwrvqa2253 [place], [place] [address]Xv. Airam Tripathi SEG # 5.22 103/ul Normal 1.40-6.50 [facility] Comment on above: Performed By: #### Jodee VELÁSQUEZ ####[facility] Egkilbqvuy1895 [place], [place] [address]Hu. Airam Tripathi SEG % 87.0 % Critically high 43.0-75.0 [facility] Comment on above: Performed By: #### Jodee VELÁSQUEZ ####[facility] Sjsbbvcofo1012 [place], [place] [address]Ck. Airam Tripathi WBC 6.0 103/ul Normal 4.0-11.0 [facility] Comment on above: Performed By: #### Jodee VELÁSQUEZ ####[facility] Xbnpjvonpv9090 [place], [place] [address]Qj. Airam Tripathi FREE THYROXINE INDEX T7on FTI 1.57 Normal 1.30-4.50 [facility] Comment on above: Performed By: #### T 7, TSH, CMP ####[facility] Uhnjfemoro0540 [place], [place] [address]Gd. Airam Tripathi T3U 32.0 % Normal 30.0-39.0 [facility] Comment on above: Performed By: #### T 7, TSH, CMP ####[facility] Vqrmphproy1508 [place], [place] [address]Ls. Airam Tripathi T4 [Mass/Vol] 4.90 ug/dL Normal 4.80-13.90 [facility] Comment on above: Performed By: #### T 7, TSH, CMP ####[facility] Ygognijzkp4894 [place] [address]Dr. Airam Tripathi PROF 14(COMP METB)on 022 Albumin [Mass/Vol] 3.0 g/dL Critically low 3.4-5.0 [facility] Comment on above: Performed By: #### T 7, TSH, CMP ####[facility] Pzovlolacz9228 [place] [address]Dr. Airam Tripathi Albumin/Globulin [Mass ratio] 1.0 {ratio} Normal [facility] Comment on above: Performed By: #### T 7, TSH, CMP ####[facility] Dfwmxcsnlm8927[address] [place], [place] [address]Dr. Airam Tripathi ALP [Catalytic activity/Vol] 106 U/L Normal 46-116 [facility] Comment on above: Performed By: #### T 7, TSH, CMP ####[facility] Friylpwyja454[address] [place], [place] [address]Dr. Airam Tripathi ALT [Catalytic activity/Vol] 20 U/L Normal 14-59 [facility] Comment on above: Performed By: #### T 7, TSH, CMP ####[facility] Msedolawzc226698 [address] [place], [place] [address]Dr. Airam Tripathi Anion gap [Moles/Vol] 10.8 mmol/L Normal [facility] Comment on above: Performed By: #### T 7, TSH, CMP ####[facility] Aadtlnagnl08119[address] [place], [place] [address]Dr. Airam Tripathi AST [Catalytic activity/Vol] 19 U/L Normal 15-37 [facility] Comment on above: Performed By: #### T 7, TSH, CMP ####[facility] Mrghwobnhq188[address] [place], [place] [address]Dr. Airam Tripathi Bilirubin [Mass/Vol] 0.3 mg/dL Normal 0.2-1.0 [facility] Comment on above: Performed By: #### T 7, TSH, CMP ####[facility] Zijghjdmkl5470[address] [place], [place] [address]Dr. Airam Tripathi Calcium [Mass/Vol] 8.0 mg/dL Critically low 8.5-10.1 [facility] Comment on above: Performed By: #### T 7, TSH, CMP ####[facility] Oiyzbhyzlw21[address] [place], [place] [address]Dr. Airam Tripathi Chloride [Moles/Vol] 100 mmol/L Normal 98-107 [facility] Comment on above: Performed By: #### T 7, TSH, CMP ####[facility] Blqwrwghlz6768[address] [place], [place] [address]Dr. Airam Tripathi CO2 [Moles/Vol] 24.3 mmol/L Normal 21.0-32.0 [facility] Comment on above: Performed By: #### T 7, TSH, CMP ####[facility] Zrvdiqkhsi410[address] [place], [place] [address]Dr. Airam Tripathi Creatinine [Mass/Vol] 1.12 mg/dL Critically high 0.55-1.02 [facility] Comment on above: Performed By: #### T 7, TSH, CMP ####[facility] Cmkxolenak2355[address] [place], [place] [address]Dr. Airam Tripathi EGFR-AF BARBADIAN 60 mL/min/1.73m2 Normal >=60 [facility] Comment on above: Performed By: #### T 7, TSH, CMP ####[facility] Qcncnrqkln6[address] [place], [place] [address]Dr. Airam Tripathi EGFR-NON AF BARBADIAN 50 mL/min/1.73m2 Critically low >=60 [facility] Comment on above: Performed By: #### T 7, TSH, CMP ####[facility] Bquooucuce1390[address] [place], [place] [address]Dr. Airam Tripathi Globulin (S) [Mass/Vol] 3.0 g/dL Normal [facility] Comment on above: Performed By: #### T 7, TSH, CMP ####[facility] Daoluvtwkv168[address] [place], [place] [address]Dr. Airam Tripathi Glucose [Mass/Vol] 76 mg/dL Normal 74-106 [facility] Comment on above: Performed By: #### T 7, TSH, CMP ####[facility] Qmbfaxyizp489[address] [place], [place] [address]Dr. Airam Tripathi Potassium [Moles/Vol] 4.1 mmol/L Normal 3.5-5.1 [facility] Comment on above: Performed By: #### T 7, TSH, CMP ####[facility] Ijyvrrlncv1068[address] [place], [place] [address]Dr. Airam Tripathi Protein [Mass/Vol] 6.0 g/dL Critically low 6.4-8.2 [facility] Comment on above: Performed By: #### T 7, TSH, CMP ####[facility] Xvpbxdvtvd6923[address] [place], [place] [address]Dr. Airam Tripathi Sodium [Moles/Vol] 131 mmol/L Critically low 136-145 Th [facility] Comment on above: Performed By: #### T 7, TSH, CMP ####[facility] Ckuexkvyyd37[address] [place], [place] [address]Dr. Airam Tripathi Urea nitrogen [Mass/Vol] 32.0 mg/dL Critically high 7.0-18.0 [facility] Comment on above: Performed By: #### T 7, TSH, CMP ####[facility] Zgclsaelbh4477[address] [place], [place] [address]Dr. Airam Tripathi Urea nitrogen/Creatinine [Mass ratio] 28.6 mg/mg Normal [facility] Comment on above: Performed By: #### T 7, TSH, CMP ####[facility] Dtcqeheiup2764[address] [place], [place] [address]Dr. Airam Tripathi TSHon 04-08-2022 TSH 0.027 uIU/mL Critically low 0.358-3.74 0 [facility] Comment on above: Performed By: #### T 7, TSH, CMP ####[facility] Djvnhzuztj56[address] [place], [place] [address]Dr. Airam Tripathi UA RANDOMon 04-08-2022 Bilirubin Ql (U) Negative Normal NEGATIVE [facility] Comment on above: Performed By: #### U A ####[facility] Zweveveplc26[address] [place], [place] [address]Dr. Airam Tripathi Clarity (U) CLEAR Normal CLEAR [facility] Comment on above: Performed By: #### U A ####[facility] Dgpyprgrnq3448 [place] [address]Dr. Airam Tripathi Color (U) LT. YELLOW Normal YELLOW [facility] Comment on above: Performed By: #### U A ####[facility] Socgijywgu64[address] [place] [address]Dr. Airam Tripathi Glucose Ql (U) Negative Normal NEGATIVE [facility] Comment on above: Performed By: #### U A ####[facility] Ayuaweknth000398 [address] [place], [place] [address]Dr. Airam Tripathi Hemoglobin Ql (U) Negative Normal NEGATIVE [facility] Comment on above: Performed By: #### U A ####[facility] Wudiwkropt469198 [address] [place], [place] [address]Dr. Airam Tripathi Ketones Ql (U) Negative Normal NEGATIVE [facility] Comment on above: Performed By: #### U A ####[facility] Yuraygfshk7732[address] [place], [place] [address]Dr. Airam Tripathi LEUKOCYTES Negative Normal NEGATIVE [facility] Comment on above: Performed By: #### U A ####[facility] Gdzyhbgjwf12[address] [place], [place] [address]Dr. Airam Tripathi Nitrite Ql (U) Negative Normal NEGATIVE [facility] Comment on above: Performed By: #### U A ####[facility] Qeevmgzxbg7299[address] [place], [place] [address]Dr. Airam Tripathi pH (U) 6.0 [pH] Normal 5-9 [facility] Comment on above: Performed By: #### U A ####[facility] Slnqwmongu213[address] [place], [place] [address]Dr. Airam Tripathi SPEC GRAVITY 1.010 Normal 1.005-<=1. 025 [facility] Comment on above: Performed By: #### U A ####[facility] Tmmagrkysj974[address] [place], [place] [address]Dr. Airam Tripathi UA PROTEIN Negative Normal NEGATIVE/ TRACE [facility] Comment on above: Performed By: #### U A ####[facility] Sqzbfhljkp9904 [place] [address]Dr. Airam Tripathi Urobilinogen Qn (U) 0.2 {Ligia'U}/dL Normal 0.2 - 1. 0 [facility] Comment on above: Performed By: #### U A ####[facility] Zcsvaxvtzt8024 [place] [address]Dr. Airam Tripathi URINE T PROTEIN CREAT RATIOo n 04-08-2022 UR PROT CREAT RAT 0.32 Normal [facility] Comment on above: Performed By: #### U RTPCR ####[facility] Wqqsqcgtaz159[address] [place], [place] [address]Dr. Airam Tripathi UR TOTAL PROTEIN <6.0 Normal <=12.0 [facility] Comment on above: Performed By: #### U RTPCR ####[facility] Ncqiizbtuj024798 [address] [place], [place] [address]Dr. Airam Tripathi URINE CREAT 18.75 mg/dL Critically low 20.00-300. 00 [facility] Comment on above: Performed By: #### U RTPCR ####[facility] Kkkoprgpez9904[address] [place], [place] [address]Dr. Airam Tripathi FERRITINon 04-06-2022 Ferritin [Mass/Vol] 99.0 ng/mL Normal 8.0-252.0 [facility] Comment on above: Performed By: #### F ETIBC, VITAD, FERR ####[facility] Rcnbhhoguh8[address] [place], [place] [address]Dr. Airam Tripathi IRON AND TIBCon 04-06-2022 % SATURATION 15.4 % Normal [facility] Comment on above: Performed By: #### F ETIBC, VITAD, FERR ####[facility] Sgkqtmzzro216[address] [place], [place] [address]Dr. Airam Tripathi Iron [Mass/Vol] 43.0 ug/dL Critically low 50.0-170.0 [facility] Comment on above: Performed By: #### F ETIBC, VITAD, FERR ####[facility] Vvohefbvlx213[address] [place], [place] [address]Dr. Airam Tripathi TIBC DIRECT 280.0 ug/dL Normal 250.0-450. 0 [facility] Comment on above: Performed By: #### F ETIBC, VITAD, FERR ####[facility] Xdtapsnvby3039 [place] [address]Dr. Airam Tripathi PROF 14(COMP METB)on 04-06- 022 Albumin [Mass/Vol] 3.2 g/dL Critically low 3.4-5.0 [facility] Comment on above: Performed By: #### C MP, URIC ####[facility] Qnxuvrolce6353 [place] [address]Dr. Airam Tripathi Albumin/Globulin [Mass ratio] 1.0 {ratio} Normal [facility] Comment on above: Performed By: #### C MP, URIC ####[facility] Wtjjqpuvws10[address] [place], [place] [address]Dr. Aiarm Tripathi ALP [Catalytic activity/Vol] 118 U/L Critically high 46-116 [facility] Comment on above: Performed By: #### C MP, URIC ####[facility] Srurfnhskb2969 [place] [address]Dr. Airam Tripathi ALT [Catalytic activity/Vol] 24 U/L Normal 14-59 [facility] Comment on above: Performed By: #### C MP, URIC ####[facility] Sgzytinvaq1494 [place] [address]Dr. Airam Tripathi Anion gap [Moles/Vol] 14.4 mmol/L Normal [facility] Comment on above: Performed By: #### C MP, URIC ####[facility] Pfnfxrpnrs533[address] [place], [place] [address]Dr. Airam Tripathi AST [Catalytic activity/Vol] 21 U/L Normal 15-37 [facility] Comment on above: Performed By: #### C MP, URIC ####[facility] Lqosxogwen0680 [place] [address]Dr. Airam Tripathi Bilirubin [Mass/Vol] 0.3 mg/dL Normal 0.2-1.0 [facility] Comment on above: Performed By: #### C MP, URIC ####[facility] Nudbfgxhpr6987 [place] [id number]. Airam Tripathi Calcium [Mass/Vol] 8.0 mg/dL Critically low 8.5-10.1 [facility] Comment on above: Performed By: #### C MP, URIC ####[facility] Nvdvviugzl5160 [place] [address]Dr. Airam Tripathi Chloride [Moles/Vol] 98 mmol/L Normal 98-107 [facility] Comment on above: Performed By: #### C MP, URIC ####[facility] Jvxddzifiy7151 [place] [address]Dr. Airam Tripathi CO2 [Moles/Vol] 22.0 mmol/L Normal 21.0-32.0 [facility] Comment on above: Performed By: #### C MP, URIC ####[facility] Wmcyorvhjq390[address] [place], [place] [address]Dr. Airam Tripathi Creatinine [Mass/Vol] 1.86 mg/dL Critically high 0.55-1.02 [facility] Comment on above: Performed By: #### C MP, URIC ####[facility] Ufytgxtjxu023[address] [place], [place] [address]Dr. Airam Tripathi EGFR-AF BARBADIAN 33 mL/min/1.73m2 Critically low >=60 [facility] Comment on above: Performed By: #### C MP, URIC ####[facility] Ahmzaadpxq365[address] [place], [place] [address]Dr. Airam Tripathi EGFR-NON AF BARBADIAN 28 mL/min/1.73m2 Critically low >=60 [facility] Comment on above: Performed By: #### C MP, URIC ####[facility] Fkfukvfehg1128 [place] [address]Dr. Airam Tripathi Globulin (S) [Mass/Vol] 3.1 g/dL Normal [facility] Comment on above: Performed By: #### C MP, URIC ####[facility] Nrnsbipyht401[address] [place], [place] [address]Dr. Airam Tripathi Glucose [Mass/Vol] 93 mg/dL Normal 74-106 [facility] Comment on above: Performed By: #### C MP, URIC ####[facility] Emwxeeedgw0437[address] [place], [place] [address]Dr. Airam Tripathi Potassium [Moles/Vol] 4.4 mmol/L Normal 3.5-5.1 [facility] Comment on above: Performed By: #### C MP, URIC ####[facility] Lrakbkwwqg652198 [address] [place], [place] [address]Dr. Airam Tripathi Protein [Mass/Vol] 6.3 g/dL Critically low 6.4-8.2 Th [facility] Comment on above: Performed By: #### C MP, URIC ####[facility] Szuxiltcti9913[address] [place], [place] [address]Dr. Airam Tripathi Sodium [Moles/Vol] 130 mmol/L Critically low 136-145 Th [facility] Comment on above: Performed By: #### C MP, URIC ####[facility] Bdcmbfwfhv3665[address] [place], [place] [address]Dr. Airam Tripathi Urea nitrogen [Mass/Vol] 49.0 mg/dL Critically high 7.0-18.0 [facility] Comment on above: Performed By: #### C MP, URIC ####[facility] Wvzjjmtjsq713[address] [place], [place] [address]Dr. Airam Tripathi Urea nitrogen/Creatinine [Mass ratio] 26.3 mg/mg Normal [facility] Comment on above: Performed By: #### C MP, URIC ####[facility] Zddwadctlz424[address] [place], [place] [address]Dr. Airam Tripathi URIC ACID SERUMon 04-06-2022 Urate [Mass/Vol] 6.5 mg/dL Critically high 2.6-6.0 [facility] Comment on above: Performed By: #### C MP, URIC ####[facility] Ngskmfigny674[address] [place], [place] [address]Dr. Airam Tripathi VITAMIN D 25 OHon 04-06-2022 VIT D 25-OH 74.5 ng/mL Normal [facility] Comment on above: Performed By: #### F ETIBC, VITAD, FERR ####[facility] Gdeowrtmlx138[address] [place], [place] [address]Dr. Selenaneil Deuce VIT D RANGES SEE BELOW Normal [facility] Comment on above: Result Comment: <20 ng/mL Vit D deficient 20 - <30 ng/mL Vit D insufficient 30 - 100 ng/mL Vit D sufficient >100 ng/mL Potential Toxicity Performed By: #### F ETIBC, VITAD, FERR ####[facility] Wizibjprhq1401[address] [place], [place] [address]Dr. Airam Tripathi OSMOLALITYon 04-01-2022 Osmolality [Osmolality] 284 mosm/kg Normal 275-295 [facility] Comment on above: Performed By: #### O SMO ####[facility] Izymhodqdc6699[address] [place], [place] [address]Dr. Airam Tripathi CBC AUTO DIFFon 03-31-2022 BASO # 0.0 103/ul Normal 0.0-0.1 [facility] Comment on above: Performed By: #### C BC ####[facility] Herdwceqkp159198 [address] [place], [place] [address]Dr. Airam Tripathi Basophils/100 WBC (Bld) 0.3 % Normal 0.2-2.0 [facility] Comment on above: Performed By: #### C BC ####[facility] Yrmfylgqtr0534[address] [place], [place] [address]DrKianna Tripathi EO # 0.1 103/ul Normal 0.0-0.7 [facility] Comment on above: Performed By: #### C BC ####[facility] Wmtcacioyv8585[address] [place], [place] [address]DrKianna Tripathi Eosinophils/100 WBC (Bld) 2.0 % Normal 0.9-7.0 [facility] Comment on above: Performed By: #### C BC ####[facility] Tyfdnnxniz5775[address] [place], [place] [address]Dr. Airam Tripathi Erythrocyte distribution width (RBC) [Ratio] 13.5 % Normal 11.0-15.0 [facility] Comment on above: Performed By: #### C BC ####[facility] Apwrpsgspa523[address] [place], [place] [address]DrKianna Tripathi Hematocrit (Bld) [Volume fraction] 32.5 % Critically low 36.0-48.0 [facility] Comment on above: Performed By: #### C BC ####[facility] Coyhbtzmiv6569 [place] [address]Dr. Airam Tripathi Hemoglobin (Bld) [Mass/Vol] 10.1 g/dL Critically low 12.0-16.0 [facility] Comment on above: Performed By: #### C BC ####[facility] Zfxlfqupbu505398 [address] [place], [place] [address]Dr. Selenaneil Tripathi IG # 0.03 10e3/ul Normal 0.00-0.03 [facility] Comment on above: Performed By: #### C BC ####[facility] Mmufkuwvpe0414[address] [place], [place] [address]Dr. Selenaneil Deuce IG % 0.4 % Normal 0.0-0.5 [facility] Comment on above: Performed By: #### C BC ####[facility] Jfmhdhqawj9[address] [place], [place] [address]Dr. Airam Deuce LYMPH # 1.6 103/ul Normal 1.2-3.8 [facility] Comment on above: Performed By: #### C BC ####[facility] Tmmnmfvxte1522[address] [place], [place] [address]Dr. Airam Tripathi Lymphocytes/100 WBC (Bld) 22.6 % Normal 20.5-60.0 [facility] Comment on above: Performed By: #### C BC ####[facility] Gbiooejnht610[address] [place], [place] [address]Dr. Airam Deuce MANUAL DIFF REQ NO Normal [facility] Comment on above: Performed By: #### C BC ####[facility] Mtwfawpigw8822[address] [place], [place] [address]Dr. Airam Deuce MCH (RBC) [Entitic mass] 30.5 pg Normal 26.7-34.0 [facility] Comment on above: Performed By: #### C BC ####[facility] Mxbyyrxjdh754[address] [place], [place] [address]Dr. Selenaneil Tripathi MCHC (RBC) [Mass/Vol] 31.1 g/dL Normal 29.9-35.2 [facility] Comment on above: Performed By: #### C BC ####[facility] Ycgirfwcqj9780 [place] [address]DrKianna Tripathi MCV (RBC) [Entitic vol] 98.2 fL Normal 81.0-99.0 [facility] Comment on above: Performed By: #### C BC ####[facility] Qntcbhaaxd5818[address] [place], [place] [address]DrKianna Tripathi MONO # 0.5 103/ul Normal 0.3-0.8 [facility] Comment on above: Performed By: #### C BC ####[facility] Frmdwgwhjf0925[address] [place], [place] [address]DrKianna Tripathi Monocytes/100 WBC (Bld) 7.3 % Normal 1.7-12.0 [facility] Comment on above: Performed By: #### C BC ####[facility] Fbfmthrxaz0120[address] [place], [place] [address]DrKianna Tripathi NEUT # 4.7 103/ul Normal 1.4-6.5 [facility] Comment on above: Performed By: #### C BC ####[facility] Yjmgrguaat177[address] [place], [place] [address]DrKianna Tripathi Neutrophils/100 WBC (Bld) 67.4 % Normal 43.0-75.0 [facility] Comment on above: Performed By: #### C BC ####[facility] Bmwpkdujzn218[address] [place], [place] [address]DrKianna Tripathi Platelet mean volume (Bld) [Entitic vol] 9.5 fL Normal 9.5-13.5 [facility] Comment on above: Performed By: #### C BC ####[facility] Ewpljfyrxu13[address] [place], [place] [address]DrKianna Tripathi PLT 273 103/ul Normal 150-450 [facility] Comment on above: Performed By: #### C BC ####[facility] Hgkvgdmnam50[address] [place], [place] [address]DrKianna rTipathi RBC 3.31 106/ul Critically low 4.20-5.40 [facility] Comment on above: Performed By: #### C BC ####[facility] Tfslvhswhx6004 [place] [address]Dr. Airam Tripathi WBC 7.0 103/ul Normal 4.0-11.0 [facility] Comment on above: Performed By: #### C BC ####[facility] Upqmaapvfa95[address] [place], [place] [address]Dr. Airam Tripathi PROF 14(COMP METB)on 022 Albumin [Mass/Vol] 3.4 g/dL Normal 3.4-5.0 [facility] Comment on above: Performed By: #### C MP ####[facility] Baawdmukdb048[address] [place], [place] [address]Dr. Airam Tripathi Albumin/Globulin [Mass ratio] 1.1 {ratio} Normal [facility] Comment on above: Performed By: #### C MP ####[facility] Yhpjzmaaym314[address] [place], [place] [address]Dr. Airam Tripathi ALP [Catalytic activity/Vol] 107 U/L Normal 46-116 [facility] Comment on above: Performed By: #### C MP ####[facility] Xryxjqbpcf3960[address] [place], [place] [address]Dr. Airam Tripathi ALT [Catalytic activity/Vol] 22 U/L Normal 14-59 [facility] Comment on above: Performed By: #### C MP ####[facility] Kizugdugrv0426[address] [place], [place] [address]Dr. Airam Tripathi Anion gap [Moles/Vol] 6.8 mmol/L Normal [facility] Comment on above: Performed By: #### C MP ####[facility] Wyzovtwtoj8510[address] [place], [place] [address]Dr. Airam Tripathi AST [Catalytic activity/Vol] 23 U/L Normal 15-37 [facility] Comment on above: Performed By: #### C MP ####[facility] Hogredhuxc3617[address] [place], [place] [address]Dr. Airam Tripathi Bilirubin [Mass/Vol] 0.2 mg/dL Normal 0.2-1.0 [facility] Comment on above: Performed By: #### C MP ####[facility] [address] [place] [address]Dr. Airam Tripathi Calcium [Mass/Vol] 8.4 mg/dL Critically low 8.5-10.1 Th [facility] Comment on above: Performed By: #### C MP ####[facility] [address]xczeo[address] [place] [address]Dr. Airam Tripathi Chloride [Moles/Vol] 100 mmol/L Normal 98-107 [facility] Comment on above: Performed By: #### C MP ####[facility] Mxpdgaflmy462[address] [place], [place] [address]Dr. Airam Tripathi CO2 [Moles/Vol] 29.9 mmol/L Normal 21.0-32.0 [facility] Comment on above: Performed By: #### C MP ####[facility] Bayeikonkq0964[address] [place], [place] [address]Dr. Airam Tripathi Creatinine [Mass/Vol] 1.20 mg/dL Critically high 0.55-1.02 [facility] Comment on above: Performed By: #### C MP ####[facility] Naksqndevm980[address] [place], [place] [address]Dr. Airam Tripathi EGFR-AF BAR[place]IAN 56 mL/min/1.73m2 Critically low >=60 [facility] Comment on above: Performed By: #### C MP ####[facility] Vbiwdydyrj028[address] [place], [place] [address]Dr. Airam Deuce EGFR-NON AF BARBADIAN 46 mL/min/1.73m2 Critically low >=60 [facility] Comment on above: Performed By: #### C MP ####[facility] Teogoqtzyx1805[address] [place], [place] [address]Dr. Airam Deuce Globulin (S) [Mass/Vol] 3.0 g/dL Normal [facility] Comment on above: Performed By: #### C MP ####[facility] Cfkooevarj5536[address] [place], [place] [address]Dr. Airam Deuce Glucose [Mass/Vol] 57 mg/dL Critically low 74-106 Th [facility] Comment on above: Performed By: #### C MP ####[facility] Sievftpqgx[address] [place] [address]Dr. Airam Tripathi Potassium [Moles/Vol] 3.7 mmol/L Normal 3.5-5.1 [facility] Comment on above: Performed By: #### C MP ####[facility] Bizyzvrdts100[address] [place], [place] [address]Dr. Airam Tripathi Protein [Mass/Vol] 6.4 g/dL Normal 6.4-8.2 [facility] Comment on above: Performed By: #### C MP ####[facility] Xmykcoqsbt0832[address] [place], [place] [address]Dr. Airam Tripathi Sodium [Moles/Vol] 133 mmol/L Critically low 136-145 Th [facility] Comment on above: Performed By: #### C MP ####[facility] Olmgataqiz826[address] [place], [place] [address]Dr. Airam Tripathi Urea nitrogen [Mass/Vol] 39.0 mg/dL Critically high 7.0-18.0 [facility] Comment on above: Performed By: #### C MP ####[facility] Irstlrwxig967[address] [place], [place] [address]Dr. Airam Tripathi Urea nitrogen/Creatinine [Mass ratio] 32.5 mg/mg Normal [facility] Comment on above: Performed By: #### C MP ####[facility] Dagagsengv1930[address] [place], [place] [address]Dr. Airam Tripathi OSMOLALITYon 03-24-2022 Osmolality [Osmolality] 285 mosm/kg Normal 275-295 [facility] Comment on above: Performed By: #### O SMO ####[facility] Rpuagdrvkv677[address] [place], [place] [address]Dr. Airam Tripathi CBC AUTO DIFFon 03-22-2022 BASO # 0.0 103/ul Normal 0.0-0.1 [facility] Comment on above: Performed By: #### C BC ####[facility] Ygtyclrrng566[address] [place], [place] [address]Dr. Airam Tripathi Basophils/100 WBC (Bld) 0.4 % Normal 0.2-2.0 [facility] Comment on above: Performed By: #### C BC ####[facility] Smnpvsigsh325198 [address] [place], [place] [address]Dr. Airam Tripathi EO # 0.2 103/ul Normal 0.0-0.7 [facility] Comment on above: Performed By: #### C BC ####[facility] Pvoeiayffv7340[address] [place], [place] [address]Dr. Airam Tripathi Eosinophils/100 WBC (Bld) 2.3 % Normal 0.9-7.0 [facility] Comment on above: Performed By: #### C BC ####[facility] Yyjafanruu6414[address] [place], [place] [address]Dr. Airam Tripathi Erythrocyte distribution width (RBC) [Ratio] 13.9 % Normal 11.0-15.0 [facility] Comment on above: Performed By: #### C BC ####[facility] Yvpgntgceq455[address] [place], [place] [address]Dr. Airam Tripathi Hematocrit (Bld) [Volume fraction] 32.6 % Critically low 36.0-48.0 [facility] Comment on above: Performed By: #### C BC ####[facility] Ytvgjyzbfd6033[address] [place], [place] [address]Dr. Airam Tripathi Hemoglobin (Bld) [Mass/Vol] 10.3 g/dL Critically low 12.0-16.0 [facility] Comment on above: Performed By: #### C BC ####[facility] Wtgkwveyim539[address] [place], [place] [address]Dr. Airam Tripathi IG # 0.11 10e3/ul Critically high 0.00-0.03 [facility] Comment on above: Performed By: #### C BC ####[facility] Rpkahofazp227[address] [place], [place] [address]Dr. Airam Tripathi IG % 1.4 % Critically high 0.0-0.5 [facility] Comment on above: Performed By: #### C BC ####[facility] Ibfphnhetb576198 [address] [place], [place] [address]Dr. Airam Tripathi LYMPH # 1.3 103/ul Normal 1.2-3.8 [facility] Comment on above: Performed By: #### C BC ####[facility] E[address]isrqj[address] [place] [address]Dr. Airam Tripathi Lymphocytes/100 WBC (Bld) 15.9 % Critically low 20.5-60.0 [facility] Comment on above: Performed By: #### C BC ####[facility] Qjnqqwtxot63[address] [place] [address]Dr. Airam Tripathi MANUAL DIFF REQ NO Normal [facility] Comment on above: Performed By: #### C BC ####[facility] X[address]oeevottb[address] [place] [address]Dr. Airam Tripathi MCH (RBC) [Entitic mass] 30.7 pg Normal 26.7-34.0 [facility] Comment on above: Performed By: #### C BC ####[facility] Xgtrwzlegi8315[address] [place], [place] [address]Dr. Airam Tripathi MCHC (RBC) [Mass/Vol] 31.6 g/dL Normal 29.9-35.2 [facility] Comment on above: Performed By: #### C BC ####[facility] Xhqmcwlggb106698 [address] [place], [place] [address]Dr. Airam Tripathi MCV (RBC) [Entitic vol] 97.0 fL Normal 81.0-99.0 [facility] Comment on above: Performed By: #### C BC ####[facility] Rwzjwaeena2480[address] [place], [place] [address]Dr. Airam Tripathi MONO # 0.6 103/ul Normal 0.3-0.8 [facility] Comment on above: Performed By: #### C BC ####[facility] Lzyxcwoikt754[address] [place], [place] [address]Dr. Airam Tripathi Monocytes/100 WBC (Bld) 6.9 % Normal 1.7-12.0 [facility] Comment on above: Performed By: #### C BC ####[facility] Wwzhielsmo2920[address] [place], [place] [address]Dr. Airam Tripathi NEUT # 5.9 103/ul Normal 1.4-6.5 [facility] Comment on above: Performed By: #### C BC ####[facility] Ctxebmwseu[address] [place] [id number] Waltersneil Deuce Neutrophils/100 WBC (Bld) 73.1 % Normal 43.0-75.0 [facility] Comment on above: Performed By: #### C BC ####[facility] Mfssiuiqex[address] [place] [address]DrKianna Tripathi Platelet mean volume (Bld) [Entitic vol] 9.5 fL Normal 9.5-13.5 [facility] Comment on above: Performed By: #### C BC ####[facility] Dwahajngqi8715[address] [place], [place] [address]DrKianna Tripathi PLT 313 103/ul Normal 150-450 [facility] Comment on above: Performed By: #### C BC ####[facility] Crdngacchc5034[address] [place], [place] [address]DrKianna Tripathi RBC 3.36 106/ul Critically low 4.20-5.40 [facility] Comment on above: Performed By: #### C BC ####[facility] Vxutduqaoq1714[address] [place], [place] [address]DrKianna Tripathi WBC 8.1 103/ul Normal 4.0-11.0 [facility] Comment on above: Performed By: #### C BC ####[facility] Msqfzhdjaw501[address] [place], [place] [address]Dr. Airam Tripathi PROF 14(COMP METB)on 022 Albumin [Mass/Vol] 3.3 g/dL Critically low 3.4-5.0 Th [facility] Comment on above: Performed By: #### C MP ####[facility] Yuarixdhpk218[address] [place], [place] [address]DrKianna Tripathi Albumin/Globulin [Mass ratio] 1.0 {ratio} Normal [facility] Comment on above: Performed By: #### C MP ####[facility] Uxltiyrjda41[address] [place], [place] [address]Dr. Walterslan Tripathi ALP [Catalytic activity/Vol] 113 U/L Normal 46-116 [facility] Comment on above: Performed By: #### C MP ####[facility] Sx[address]jpedyyb[address] [place] [address]Dr. Airam Tripathi ALT [Catalytic activity/Vol] 21 U/L Normal 14-59 [facility] Comment on above: Performed By: #### C MP ####[facility] Gmpkvemnuy413[address] [place], [place] [address]Dr. Airam Deuce Anion gap [Moles/Vol] 12.2 mmol/L Normal [facility] Comment on above: Performed By: #### C MP ####[facility] Wxrjktzflu940[address] [place], [place] [address]Dr. Airam Deuce AST [Catalytic activity/Vol] 21 U/L Normal 15-37 [facility] Comment on above: Performed By: #### C MP ####[facility] Kwcwtifwnm3775[address] [place], [place] [address]Dr. Airam Deuce Bilirubin [Mass/Vol] 0.2 mg/dL Normal 0.2-1.0 [facility] Comment on above: Performed By: #### C MP ####[facility] Qqstrhqywh877[address] [place], [place] [address]Dr. Airam Deuce Calcium [Mass/Vol] 8.4 mg/dL Critically low 8.5-10.1 [facility] Comment on above: Performed By: #### C MP ####[facility] Wwktedduwh945[address] [place], [place] [address]Dr. Airam Deuce Chloride [Moles/Vol] 103 mmol/L Normal 98-107 [facility] Comment on above: Performed By: #### C MP ####[facility] Tdsspeqlik26[address] [place], [place] [address]Dr. Selenaneil Tripathi CO2 [Moles/Vol] 24.4 mmol/L Normal 21.0-32.0 [facility] Comment on above: Performed By: #### C MP ####[facility] Dgntqeqlfn4087[address] [place], [place] [address]Dr. Yineil Tripathi Creatinine [Mass/Vol] 1.11 mg/dL Critically high 0.55-1.02 [facility] Comment on above: Performed By: #### C MP ####[facility] E[address]rqjsikn[address] [place] [address]Dr. Airam Deuce EGFR-AF BAR[place]IAN >60 Normal >=60 [facility] Comment on above: Performed By: #### C MP ####[facility] Bsruggvrpj[address] [place] [address]Dr. Airam Tripathi EGFR-NON AF [place]IAN 50 mL/min/1.73m2 Critically low >=60 [facility] Comment on above: Performed By: #### C MP ####[facility] Tizqciahyq986[address] [place], [place] [address]Dr. Airam Tripathi Globulin (S) [Mass/Vol] 3.2 g/dL Normal [facility] Comment on above: Performed By: #### C MP ####[facility] Rpkevxevuw033[address] [place], [place] [address]Dr. Airam Tripathi Glucose [Mass/Vol] 84 mg/dL Normal 74-106 [facility] Comment on above: Performed By: #### C MP ####[facility] Bfysdvmgxs2712[address] [place], [place] [address]Dr. Airam Tripathi Potassium [Moles/Vol] 4.6 mmol/L Normal 3.5-5.1 [facility] Comment on above: Performed By: #### C MP ####[facility] Ndqqzwpxfu9825[address] [place], [place] [address]Dr. Airam Tripathi Protein [Mass/Vol] 6.5 g/dL Normal 6.4-8.2 [facility] Comment on above: Performed By: #### C MP ####[facility] Nfgcbtoede6927[address] [place], [place] [address]Dr. Airam Tripathi Sodium [Moles/Vol] 135 mmol/L Critically low 136-145 Th [facility] Comment on above: Performed By: #### C MP ####[facility] Ffparbcoxu105[address] [place], [place] [address]Dr. Airam Tripathi Urea nitrogen [Mass/Vol] 39.0 mg/dL Critically high 7.0-18.0 [facility] Comment on above: Performed By: #### C MP ####[facility] Yklhutvwnq7515[address] [place], [place] [address]Dr. Airam Tripathi Urea nitrogen/Creatinine [Mass ratio] 35.1 mg/mg Normal [facility] Comment on above: Performed By: #### C MP ####[facility] Sxufeqxmae235[address] [place], [place] [address]Dr. Airam Tripathi OSMOLALITYon 03-17-2022 Osmolality [Osmolality] 277 mosm/kg Normal 275-295 [facility] Comment on above: Performed By: #### O SMO ####[facility] Mwrhtccpnb0680[address] [place], [place] [address]Dr. Airam Tripathi CBC AUTO DIFFon 03-15-2022 BASO # 0.0 103/ul Normal 0.0-0.1 [facility] Comment on above: Performed By: #### C BC ####[facility] Nvewlzpduq1677[address] [place], [place] [address]Dr. Airam Tripathi Basophils/100 WBC (Bld) 0.4 % Normal 0.2-2.0 [facility] Comment on above: Performed By: #### C BC ####[facility] Qupysjlrpf882[address] [place], [place] [address]DrKianna Tripathi EO # 0.1 103/ul Normal 0.0-0.7 [facility] Comment on above: Performed By: #### C BC ####[facility] Lnbkxrpypf659[address] [place], [place] [address]DrKianna Tripathi Eosinophils/100 WBC (Bld) 2.4 % Normal 0.9-7.0 [facility] Comment on above: Performed By: #### C BC ####[facility] Pzlgytkmsp339[address] [place], [place] [address]Dr. Airam Tripathi Erythrocyte distribution width (RBC) [Ratio] 13.9 % Normal 11.0-15.0 [facility] Comment on above: Performed By: #### C BC ####[facility] Jfvtbopjtv089[address] [place], [place] [address]Dr. Airam Tripathi Hematocrit (Bld) [Volume fraction] 31.2 % Critically low 36.0-48.0 [facility] Comment on above: Performed By: #### C BC ####[facility] Baxwuxkpdo028[address] [place] [address]DrKianna Airam Tripathi Hemoglobin (Bld) [Mass/Vol] 9.9 g/dL Critically low 12.0-16.0 [facility] Comment on above: Performed By: #### C BC ####[facility] Kcptpeuurt470[address] [place], [place] [address]DrKianna Selenaneil Tripathi IG # 0.03 10e3/ul Normal 0.00-0.03 [facility] Comment on above: Performed By: #### C BC ####[facility] Ogrmcxasqz510[address] [place], [place] [address]DrKianna Selenaneil Tripathi IG % 0.6 % Critically high 0.0-0.5 [facility] Comment on above: Performed By: #### C BC ####[facility] Psudsnijhd7485[address] [place], [place] [address]DrKianna Selenaneil Tripathi LYMPH # 1.5 103/ul Normal 1.2-3.8 [facility] Comment on above: Performed By: #### C BC ####[facility] Ghskhgzlri243[address] [place], [place] [address]DrKianna Selenaneil Tripathi Lymphocytes/100 WBC (Bld) 29.4 % Normal 20.5-60.0 [facility] Comment on above: Performed By: #### C BC ####[facility] Ineniyxzik634398 [address] [place], [place] [address]DrKianna Selenaneil Tripathi MANUAL DIFF REQ NO Normal [facility] Comment on above: Performed By: #### C BC ####[facility] Pnfghmetbc223198 [address] [place], [place] [address]DrKianna Tripathi MCH (RBC) [Entitic mass] 30.5 pg Normal 26.7-34.0 [facility] Comment on above: Performed By: #### C BC ####[facility] Ujmgsncnth716[address] [place], [place] [address]DrKianna Tripathi MCHC (RBC) [Mass/Vol] 31.7 g/dL Normal 29.9-35.2 [facility] Comment on above: Performed By: #### C BC ####[facility] B[address]tfuirbd[address] [place] [address]DrKianna Tripathi MCV (RBC) [Entitic vol] 96.0 fL Normal 81.0-99.0 [facility] Comment on above: Performed By: #### C BC ####[facility] Qtrbfljdys529[address] [place], [place] [address]DrKianna Tripathi MONO # 0.4 103/ul Normal 0.3-0.8 [facility] Comment on above: Performed By: #### C BC ####[facility] Mxmquifyjc7280[address] [place], [place] [address]DrKianna Tripathi Monocytes/100 WBC (Bld) 7.0 % Normal 1.7-12.0 [facility] Comment on above: Performed By: #### C BC ####[facility] Squamjvgwd2414[address] [place], [place] [address]DrKianna Tripathi NEUT # 3.0 103/ul Normal 1.4-6.5 [facility] Comment on above: Performed By: #### C BC ####[facility] Atdgxjwesn5088[address] [place], [place] [address]DrKianna Tripathi Neutrophils/100 WBC (Bld) 60.2 % Normal 43.0-75.0 [facility] Comment on above: Performed By: #### C BC ####[facility] Qsaeaavsxs824[address] [place], [place] [address]DrKianna Tripathi Platelet mean volume (Bld) [Entitic vol] 9.6 fL Normal 9.5-13.5 [facility] Comment on above: Performed By: #### C BC ####[facility] Mczcyeuwmw527[address] [place], [place] [address]DrKianna Tripathi PLT 258 103/ul Normal 150-450 [facility] Comment on above: Performed By: #### C BC ####[facility] Lxkejzglde7399[address] [place], [place] [address]DrKianna Tripathi RBC 3.25 106/ul Critically low 4.20-5.40 [facility] Comment on above: Performed By: #### C BC ####[facility] Ijgmcslprh224[address] [place], [place] [address]Dr. Airam Tripathi WBC 5.0 103/ul Normal 4.0-11.0 [facility] Comment on above: Performed By: #### C BC ####[facility] Ssniwmfwbs045[address] [place], [place] [address]Dr. Airam Tripathi PROF 14(COMP METB)on 022 Albumin [Mass/Vol] 3.3 g/dL Critically low 3.4-5.0 [facility] Comment on above: Performed By: #### C MP ####[facility] Nnsusfhjdl158[address] [place], [place] [address]Dr. Airam Tripathi Albumin/Globulin [Mass ratio] 1.1 {ratio} Normal [facility] Comment on above: Performed By: #### C MP ####[facility] Jsclcsiczo209[address] [place], [place] [address]Dr. Airam Tripathi ALP [Catalytic activity/Vol] 106 U/L Normal 46-116 [facility] Comment on above: Performed By: #### C MP ####[facility] Rzqhcftnfm138398 [address] [place], [place] [address]Dr. Airam Tripathi ALT [Catalytic activity/Vol] 22 U/L Normal 14-59 [facility] Comment on above: Performed By: #### C MP ####[facility] Jdegbuymhq3828[address] [place], [place] [address]Dr. Airam Tripathi Anion gap [Moles/Vol] 11.4 mmol/L Normal [facility] Comment on above: Performed By: #### C MP ####[facility] Vrmceqyjgl8520[address] [place], [place] [address]Dr. Airam Tripathi AST [Catalytic activity/Vol] 22 U/L Normal 15-37 [facility] Comment on above: Performed By: #### C MP ####[facility] Zqdenicpso1028[address] [place], [place] [address]Dr. Airam Tripathi Bilirubin [Mass/Vol] 0.3 mg/dL Normal 0.2-1.0 [facility] Comment on above: Performed By: #### C MP ####[facility] Zyenvzlkhi695[address] [place], [place] [address]Dr. Airam Tripathi Calcium [Mass/Vol] 8.1 mg/dL Critically low 8.5-10.1 Th e [facility] Comment on above: Performed By: #### C MP ####[facility] Wcruznfidh279[address] [place], [place] [address]Dr. Airam Tripathi Chloride [Moles/Vol] 100 mmol/L Normal 98-107 [facility] Comment on above: Performed By: #### C MP ####[facility] Qpyhxcmfaf265498 [address] [place], [place] [address]Dr. Airam Tripathi CO2 [Moles/Vol] 25.6 mmol/L Normal 21.0-32.0 [facility] Comment on above: Performed By: #### C MP ####[facility] Toxnwshlbr035[address] [place], [place] [address]Dr. Airam Tripathi Creatinine [Mass/Vol] 1.21 mg/dL Critically high 0.55-1.02 [facility] Comment on above: Performed By: #### C MP ####[facility] Afafqwxsyj829[address] [place], [place] [address]Dr. Airam Tripathi EGFR-AF [place] 55 mL/min/1.73m2 Critically low >=60 [facility] Comment on above: Performed By: #### C MP ####[facility] Iauqeqmxwm757[address] [place], [place] [address]Dr. Airam Tripathi EGFR-NON AF [place] 45 mL/min/1.73m2 Critically low >=60 [facility] Comment on above: Performed By: #### C MP ####[facility] Bbyvmwcvfa4317[address] [place], [place] [address]Dr. Airam Tripathi Globulin (S) [Mass/Vol] 3.0 g/dL Normal [facility] Comment on above: Performed By: #### C MP ####[facility] Xspbvmixii239[address] [place], [place] [address]Dr. Airam Tripathi Glucose [Mass/Vol] 84 mg/dL Normal 74-106 [facility] Comment on above: Performed By: #### C MP ####[facility] Oxyhsokpoc136[address] [place], [place] [address]Dr. Airam Tripathi Potassium [Moles/Vol] 4.0 mmol/L Normal 3.5-5.1 [facility] Comment on above: Performed By: #### C MP ####[facility] Ypnukiyqwp38[address] [place], [place] [address]DrKianna Tripathi Protein [Mass/Vol] 6.3 g/dL Critically low 6.4-8.2 Th [facility] Comment on above: Performed By: #### C MP ####[facility] Txuizrteit3936[address] [place], [place] [address]DrKianna Tripathi Sodium [Moles/Vol] 133 mmol/L Critically low 136-145 Th [facility] Comment on above: Performed By: #### C MP ####[facility] Fwfenmmfsm24[address] [place], [place] [address]DrKianna Tripathi Urea nitrogen [Mass/Vol] 29.0 mg/dL Critically high 7.0-18.0 [facility] Comment on above: Performed By: #### C MP ####[facility] Vcdmunhgsd529[address] [place], [place] [address]DrKianna Tripathi Urea nitrogen/Creatinine [Mass ratio] 24.0 mg/mg Normal [facility] Comment on above: Performed By: #### C MP ####[facility] Beisivowvm[address] [place] [id number] Tripathi OSMOLALITYon 03-12-2022 Osmolality [Osmolality] 285 mosm/kg Normal 275-295 [facility] Comment on above: Performed By: #### O SMO ####[facility] Tgnfrbepio95[address] [place], [place] [address]DrKianna Tripathi CBC AUTO DIFFon 03-10-2022 BASO # 0.0 103/ul Normal 0.0-0.1 [facility] Comment on above: Performed By: #### C BC ####[facility] Pylnzrbwfc09[address] [place], [place] [address]DrKianna Tripathi Basophils/100 WBC (Bld) 0.3 % Normal 0.2-2.0 [facility] Comment on above: Performed By: #### C BC ####[facility] Zmdqolarqz086398 [address] [place], [place] [address]Dr. Airam Tripathi EO # 0.2 103/ul Normal 0.0-0.7 [facility] Comment on above: Performed By: #### C BC ####[facility] Lnqwsdqtwc314[address] [place], [place] [address]Dr. Airam Tripathi Eosinophils/100 WBC (Bld) 2.7 % Normal 0.9-7.0 [facility] Comment on above: Performed By: #### C BC ####[facility] Bswgzrcydp066398 [address] [place], [place] [address]Dr. Airam Tripathi Erythrocyte distribution width (RBC) [Ratio] 14.4 % Normal 11.0-15.0 [facility] Comment on above: Performed By: #### C BC ####[facility] Brsuushqdy688698 [address] [place], [place] [address]Dr. Airam Tripathi Hematocrit (Bld) [Volume fraction] 32.5 % Critically low 36.0-48.0 [facility] Comment on above: Performed By: #### C BC ####[facility] Pnyzfnzwyl709[address] [place], [place] [address]Dr. Airam Tripathi Hemoglobin (Bld) [Mass/Vol] 10.1 g/dL Critically low 12.0-16.0 [facility] Comment on above: Performed By: #### C BC ####[facility] Gnxfaarzev1690[address] [place], [place] [address]Dr. Airam Tripathi IG # 0.03 10e3/ul Normal 0.00-0.03 [facility] Comment on above: Performed By: #### C BC ####[facility] Xfhfqfffcr8030[address] [place], [place] [address]Dr. Airam Tripathi IG % 0.4 % Normal 0.0-0.5 [facility] Comment on above: Performed By: #### C BC ####[facility] Quspqrjxvt[address] [place] [address]Ys. Airam Deuce LYMPH # 1.4 103/ul Normal 1.2-3.8 [facility] Comment on above: Performed By: #### C BC ####[facility] J[address]wrwnhv27[address] [place] [address]Dr. Airam Deuce Lymphocytes/100 WBC (Bld) 19.4 % Critically low 20.5-60.0 [facility] Comment on above: Performed By: #### C BC ####[facility] Twmznojzlc5[address] [place] [address]Dr. Selenaneil Tripathi MANUAL DIFF REQ NO Normal [facility] Comment on above: Performed By: #### C BC ####[facility] Mtqtotrppg3594 [place] [address]Dr. Airam Deuce MCH (RBC) [Entitic mass] 30.6 pg Normal 26.7-34.0 [facility] Comment on above: Performed By: #### C BC ####[facility] Trseanmbvb335998 [address] [place], [place] [address]Dr. Airam Deuce MCHC (RBC) [Mass/Vol] 31.1 g/dL Normal 29.9-35.2 [facility] Comment on above: Performed By: #### C BC ####[facility] Sceedocgtb532[address] [place], [place] [address]Dr. Selenaneil Tripathi MCV (RBC) [Entitic vol] 98.5 fL Normal 81.0-99.0 [facility] Comment on above: Performed By: #### C BC ####[facility] Gqaispuxtb1265[address] [place], [place] [address]Dr. Selenaneil Tripathi MONO # 0.5 103/ul Normal 0.3-0.8 [facility] Comment on above: Performed By: #### C BC ####[facility] Rrldmkznea435298 [address] [place], [place] [address]Dr. Selenaneil Tripathi Monocytes/100 WBC (Bld) 6.7 % Normal 1.7-12.0 [facility] Comment on above: Performed By: #### C BC ####[facility] Wnhidcnvxx910[address] [place], [place] [address]Dr. Airam Tripathi NEUT # 5.2 103/ul Normal 1.4-6.5 [facility] Comment on above: Performed By: #### C BC ####[facility] Cgiqcvpakc44[address] [place] [address]Dr. Airam Tripathi Neutrophils/100 WBC (Bld) 70.5 % Normal 43.0-75.0 [facility] Comment on above: Performed By: #### C BC ####[facility] Rwmaiiabnf9756 [place] [address]Dr. Airam Tripathi Platelet mean volume (Bld) [Entitic vol] 9.8 fL Normal 9.5-13.5 [facility] Comment on above: Performed By: #### C BC ####[facility] Gmopdvibev9463 [place] [address]Dr. Airam Deuce PLT 277 103/ul Normal 150-450 [facility] Comment on above: Performed By: #### C BC ####[facility] Tskfubpnbu860[address] [place], [place] [address]Dr. Airam Deuce RBC 3.30 106/ul Critically low 4.20-5.40 [facility] Comment on above: Performed By: #### C BC ####[facility] Utzohxkxyg225398 [address] [place], [place] [address]Dr. Airam Deuce WBC 7.4 103/ul Normal 4.0-11.0 [facility] Comment on above: Performed By: #### C BC ####[facility] Qbeoccocgd1280 [place] [address]DrKianna Tripathi PROF 14(COMP METB)on 022 Albumin [Mass/Vol] 3.6 g/dL Normal 3.4-5.0 [facility] Comment on above: Performed By: #### C MP ####[facility] Jrrwriffsu779[address] [place], [place] [address]DrKianna Waltersneil Deuce Albumin/Globulin [Mass ratio] 1.1 {ratio} Normal [facility] Comment on above: Performed By: #### C MP ####[facility] Geagaokqwd[address] [place] [address]Dr. Airam Tripathi ALP [Catalytic activity/Vol] 112 U/L Normal 46-116 [facility] Comment on above: Performed By: #### C MP ####[facility] Yinrkxbxbx9777 [place] [address]Dr. Airam Tripathi ALT [Catalytic activity/Vol] 26 U/L Normal 14-59 [facility] Comment on above: Performed By: #### C MP ####[facility] Hitjyxyvgg0125 [place] [address]Dr. Airam Deuce Anion gap [Moles/Vol] 12.0 mmol/L Normal Th e [facility] Comment on above: Performed By: #### C MP ####[facility] Nqmnouabtc616[address] [place], [place] [address]Dr. Airam Tripathi AST [Catalytic activity/Vol] 25 U/L Normal 15-37 [facility] Comment on above: Performed By: #### C MP ####[facility] Fawgxlncdv0230[address] [place], [place] [address]Dr. Airam Deuce Bilirubin [Mass/Vol] 0.4 mg/dL Normal 0.2-1.0 [facility] Comment on above: Performed By: #### C MP ####[facility] Deeklsenrt1020[address] [place], [place] [address]Dr. Airam Deuce Calcium [Mass/Vol] 8.9 mg/dL Normal 8.5-10.1 [facility] Comment on above: Performed By: #### C MP ####[facility] Dkdiokbohe435398 [address] [place], [place] [address]Dr. Airam Deuce Chloride [Moles/Vol] 101 mmol/L Normal 98-107 [facility] Comment on above: Performed By: #### C MP ####[facility] Zzglbcxaqv197798 [address] [place], [place] [address]Dr. Airam Deuce CO2 [Moles/Vol] 24.0 mmol/L Normal 21.0-32.0 [facility] Comment on above: Performed By: #### C MP ####[facility] Tmgrbkoyyq551198 [address] [place], [place] [address]Dr. Airam Tripathi Creatinine [Mass/Vol] 1.51 mg/dL Critically high 0.55-1.02 [facility] Comment on above: Performed By: #### C MP ####[facility] Ovgvxftkii4699 [place] [address]Dr. Selenaneil Deuce EGFR-AF BARBADIAN 43 mL/min/1.73m2 Critically low >=60 [facility] Comment on above: Performed By: #### C MP ####[facility] Exajtfalxr0211 [place] [address]Dr. Airam Tripathi EGFR-NON AF BAR[place]IAN 35 mL/min/1.73m2 Critically low >=60 [facility] Comment on above: Performed By: #### C MP ####[facility] Enqecohuly909298 [address] [place], [place] [address]Dr. Airam Tripathi Globulin (S) [Mass/Vol] 3.2 g/dL Normal [facility] Comment on above: Performed By: #### C MP ####[facility] Pkurhhhfmh924[address] [place], [place] [address]Dr. Airam Tripathi Glucose [Mass/Vol] 82 mg/dL Normal 74-106 [facility] Comment on above: Performed By: #### C MP ####[facility] Ojeqopnsfc3310[address] [place], [place] [address]Dr. Airam Tripathi Potassium [Moles/Vol] 4.0 mmol/L Normal 3.5-5.1 [facility] Comment on above: Performed By: #### C MP ####[facility] Gvqsqujprq7620[address] [place], [place] [address]Dr. Airam Tripathi Protein [Mass/Vol] 6.8 g/dL Normal 6.4-8.2 [facility] Comment on above: Performed By: #### C MP ####[facility] Vdkmggdbkz646998 [address] [place], [place] [address]Dr. Airam Tripathi Sodium [Moles/Vol] 133 mmol/L Critically low 136-145 [facility] Comment on above: Performed By: #### C MP ####[facility] Zzjncbbkgz8744[address] [place], [place] [address]Dr. Airam Tripathi Urea nitrogen [Mass/Vol] 37.0 mg/dL Critically high 7.0-18.0 [facility] Comment on above: Performed By: #### C MP ####[facility] Icifmsjskt948298 [address] [place], [place] [address]Dr. Airam Tripathi Urea nitrogen/Creatinine [Mass ratio] 24.5 mg/mg Normal [facility] Comment on above: Performed By: #### C MP ####[facility] Pxctptxxte032298 [address] [place], [place] [address]Dr. Airam Tripathi OSMOLALITYon 03-07-2022 Osmolality [Osmolality] 284 mosm/kg Normal 275-295 [facility] Comment on above: Performed By: #### O SMO ####[facility] Kajyrhpuwq914[address] [place], [place] [address]Dr. Airam Tripathi CBC AUTO DIFFon 03-04-2022 BASO # 0.0 103/ul Normal 0.0-0.1 [facility] Comment on above: Performed By: #### C BC ####[facility] Jxpqisumug050498 [address] [place], [place] [address]Dr. Airam Deuce Basophils/100 WBC (Bld) 0.3 % Normal 0.2-2.0 [facility] Comment on above: Performed By: #### C BC ####[facility] Gyszgnsurs9600[address] [place], [place] [address]Dr. Airam Tripathi EO # 0.1 103/ul Normal 0.0-0.7 [facility] Comment on above: Performed By: #### C BC ####[facility] Lgarmzkmaw224298 [address] [place], [place] [address]Dr. Airam Deuce Eosinophils/100 WBC (Bld) 2.0 % Normal 0.9-7.0 [facility] Comment on above: Performed By: #### C BC ####[facility] Daysxfnved659898 [address] [place], [place] [address]Dr. Airam Tripathi Erythrocyte distribution width (RBC) [Ratio] 14.5 % Normal 11.0-15.0 [facility] Comment on above: Performed By: #### C BC ####[facility] Amwgrytdmi749298 [address] [place], [place] [address]Dr. Airam Tripathi Hematocrit (Bld) [Volume fraction] 35.4 % Critically low 36.0-48.0 [facility] Comment on above: Performed By: #### C BC ####[facility] Sdunuiqosf[address] [place] [address]DrKianna Tripathi Hemoglobin (Bld) [Mass/Vol] 11.0 g/dL Critically low 12.0-16.0 [facility] Comment on above: Performed By: #### C BC ####[facility] Gsjyuidjzf4652 [place] [address]Dr. Airam Tripathi IG # 0.03 10e3/ul Normal 0.00-0.03 [facility] Comment on above: Performed By: #### C BC ####[facility] Xjlsebppae1458 [place] [address]Dr. Airam Tripathi IG % 0.4 % Normal 0.0-0.5 [facility] Comment on above: Performed By: #### C BC ####[facility] Hnhfpjrzeh339[address] [place], [place] [address]Dr. Airam Tripathi LYMPH # 1.7 103/ul Normal 1.2-3.8 [facility] Comment on above: Performed By: #### C BC ####[facility] Tavwumtvdn1042 [place] [address]DrKianna Tripathi Lymphocytes/100 WBC (Bld) 23.8 % Normal 20.5-60.0 [facility] Comment on above: Performed By: #### C BC ####[facility] Ayvbrahtjx5786 [place] [address]DrKianna Tripathi MANUAL DIFF REQ NO Normal [facility] Comment on above: Performed By: #### C BC ####[facility] Clsejzciek217598 [address] [place], [place] [address]DrKianna Tripathi MCH (RBC) [Entitic mass] 30.0 pg Normal 26.7-34.0 [facility] Comment on above: Performed By: #### C BC ####[facility] Euyamopzma4737[address] [place], [place] [address]Dr. Airam Tripathi MCHC (RBC) [Mass/Vol] 31.1 g/dL Normal 29.9-35.2 [facility] Comment on above: Performed By: #### C BC ####[facility] Sqdptxdldy8212 [place] [id number]. Airam Tripathi MCV (RBC) [Entitic vol] 96.5 fL Normal 81.0-99.0 [facility] Comment on above: Performed By: #### C BC ####[facility] Amfrafjtke7917[address] [place], [place] [address]DrKianna Tripathi MONO # 0.5 103/ul Normal 0.3-0.8 [facility] Comment on above: Performed By: #### C BC ####[facility] Wgzkmmcgdx789798 [address] [place], [place] [address]Dr. Airam Tripathi Monocytes/100 WBC (Bld) 6.6 % Normal 1.7-12.0 [facility] Comment on above: Performed By: #### C BC ####[facility] Rltswwqhiq019898 [address] [place], [place] [address]Dr. Airam Tripathi NEUT # 4.7 103/ul Normal 1.4-6.5 [facility] Comment on above: Performed By: #### C BC ####[facility] Vxktlvuofs868698 [address] [place], [place] [address]DrKianna Tripathi Neutrophils/100 WBC (Bld) 66.9 % Normal 43.0-75.0 [facility] Comment on above: Performed By: #### C BC ####[facility] Nbuhsxtrco2270[address] [place], [place] [address]Dr. Airam Tripathi Platelet mean volume (Bld) [Entitic vol] 10.2 fL Normal 9.5-13.5 [facility] Comment on above: Performed By: #### C BC ####[facility] Pkuamjdaqq2680[address] [place], [place] [address]Dr. Airam Tripathi PLT 270 103/ul Normal 150-450 [facility] Comment on above: Performed By: #### C BC ####[facility] Mqqghigdzr8[address] [place], [place] [address]Dr. Airam Tripathi RBC 3.67 106/ul Critically low 4.20-5.40 [facility] Comment on above: Performed By: #### C BC ####[facility] Iscbdqdjvg2199 [place] [address]Dr. Airam Tripathi WBC 7.0 103/ul Normal 4.0-11.0 [facility] Comment on above: Performed By: #### C BC ####[facility] Kqcnvvsfll3847[address] [place], [place] [address]DrKianna Tripathi PROF 14(COMP METB)on 022 Albumin [Mass/Vol] 3.3 g/dL Critically low 3.4-5.0 [facility] Comment on above: Performed By: #### C MP ####[facility] Pqzulyjvqm905698 [address] [place], [place] [address]Dr. Airam Tripathi Albumin/Globulin [Mass ratio] 1.0 {ratio} Normal [facility] Comment on above: Performed By: #### C MP ####[facility] Dfnafizjme397698 [address] [place], [place] [address]Dr. Airam Tripathi ALP [Catalytic activity/Vol] 107 U/L Normal 46-116 [facility] Comment on above: Performed By: #### C MP ####[facility] Vhswcgkzxc318398 [address] [place], [place] [address]Dr. Airam Tripathi ALT [Catalytic activity/Vol] 23 U/L Normal 14-59 [facility] Comment on above: Performed By: #### C MP ####[facility] Hpuqcnwvig722[address] [place], [place] [address]Dr. Airam Tripathi Anion gap [Moles/Vol] 13.0 mmol/L Normal [facility] Comment on above: Performed By: #### C MP ####[facility] Mcbraowerc772198 [address] [place], [place] [address]Dr. Airam Tripathi AST [Catalytic activity/Vol] 30 U/L Normal 15-37 [facility] Comment on above: Performed By: #### C MP ####[facility] Emwvgfivzj275098 [address] [place], [place] [address]Dr. Airam Tripathi Bilirubin [Mass/Vol] 0.2 mg/dL Normal 0.2-1.0 [facility] Comment on above: Performed By: #### C MP ####[facility] Hcmiffnwic426798 [address] [place], [place] [address]Dr. Airam Tripathi Calcium [Mass/Vol] 8.8 mg/dL Normal 8.5-10.1 [facility] Comment on above: Performed By: #### C MP ####[facility] Hrichngtfa9668[address] [place], [place] [address]Dr. Airam Tripathi Chloride [Moles/Vol] 103 mmol/L Normal 98-107 [facility] Comment on above: Performed By: #### C MP ####[facility] Qkkfwomqsz022298 [address] [place], [place] [address]Dr. Airam Tripathi CO2 [Moles/Vol] 24.9 mmol/L Normal 21.0-32.0 [facility] Comment on above: Performed By: #### C MP ####[facility] Vjbitfiojf3826[address] [place], [place] [address]Dr. Airam Tripathi Creatinine [Mass/Vol] 1.06 mg/dL Critically high 0.55-1.02 [facility] Comment on above: Performed By: #### C MP ####[facility] Icxpfhujzo2730[address] [place], [place] [address]Dr. Airam Tripathi EGFR-AF BAR[place]IAN >60 Normal >=60 [facility] Comment on above: Performed By: #### C MP ####[facility] Uqmnjqoudx3635[address] [place], [place] [address]Dr. Airam Deuce EGFR-NON AF [place]IAN 53 mL/min/1.73m2 Critically low >=60 [facility] Comment on above: Performed By: #### C MP ####[facility] Gmtqirjkxf9070[address] [place], [place] [address]Dr. Airam Deuce Globulin (S) [Mass/Vol] 3.2 g/dL Normal [facility] Comment on above: Performed By: #### C MP ####[facility] Qmflfqtpve584198 [address] [place], [place] [address]Dr. Selenaneil Deuce Glucose [Mass/Vol] 91 mg/dL Normal 74-106 [facility] Comment on above: Performed By: #### C MP ####[facility] Ewfpiixiah7944 [place] [address]Dr. Airam Tripathi Potassium [Moles/Vol] 3.9 mmol/L Normal 3.5-5.1 [facility] Comment on above: Performed By: #### C MP ####[facility] Ypuljvdukd1420[address] [place], [place] [address]Dr. Airam Deuce Protein [Mass/Vol] 6.5 g/dL Normal 6.4-8.2 [facility] Comment on above: Performed By: #### C MP ####[facility] Jmkeayyepe6088[address] [place], [place] [address]Dr. Airam Deuce Sodium [Moles/Vol] 137 mmol/L Normal 136-145 [facility] Comment on above: Performed By: #### C MP ####[facility] Gqerskqgcb3234[address] [place], [place] [address]Dr. Airam Deuce Urea nitrogen [Mass/Vol] 27.0 mg/dL Critically high 7.0-18.0 [facility] Comment on above: Performed By: #### C MP ####[facility] Bcwbslnazl0550[address] [place], [place] [address]Dr. Airam Deuce Urea nitrogen/Creatinine [Mass ratio] 25.5 mg/mg Normal [facility] Comment on above: Performed By: #### C MP ####[facility] Furgmwcjav323[address] [place], [place] [address]Dr. Airam Deuce OSMOLALITYon 03-03-2022 Osmolality [Osmolality] 383 mosm/kg Invalid Interpretation Code [id number] [facility] Comment on above: Result Comment: Ve rified by repeat analysis Performed By: #### O SMO ####[facility] Xwkrkmnrsc728[address] [place], [place] [address]Dr. Airam Deuce CBC AUTO DIFFon 02-22-2022 BASO # 0.0 103/ul Normal 0.0-0.1 [facility] Comment on above: Performed By: #### C BC ####[facility] Eouoiqzrje9[address] [place] [address]Dr. Airam Tripathi Basophils/100 WBC (Bld) 0.4 % Normal 0.2-2.0 [facility] Comment on above: Performed By: #### C BC ####[facility] Nundrrnpsf0807 [place] [address]Dr. Airam Tripathi EO # 0.2 103/ul Normal 0.0-0.7 [facility] Comment on above: Performed By: #### C BC ####[facility] Ukaybyelqn5930[address] [place], [place] [address]Dr. Airam Tripathi Eosinophils/100 WBC (Bld) 3.9 % Normal 0.9-7.0 [facility] Comment on above: Performed By: #### C BC ####[facility] Szdpffrphu6875[address] [place], [place] [address]Dr. Airam Tripathi Erythrocyte distribution width (RBC) [Ratio] 13.9 % Normal 11.0-15.0 [facility] Comment on above: Performed By: #### C BC ####[facility] Fxrcddnkcs5045[address] [place], [place] [address]Dr. Airam Tripathi Hematocrit (Bld) [Volume fraction] 32.7 % Critically low 36.0-48.0 [facility] Comment on above: Performed By: #### C BC ####[facility] Ireywkjpto9518[address] [place], [place] [address]Dr. Airam Tripathi Hemoglobin (Bld) [Mass/Vol] 10.7 g/dL Critically low 12.0-16.0 [facility] Comment on above: Performed By: #### C BC ####[facility] Irkazamtjt2638[address] [place], [place] [address]Dr. Airam Tripathi IG # 0.02 10e3/ul Normal 0.00-0.03 [facility] Comment on above: Performed By: #### C BC ####[facility] Kgbpmlmbyb209[address] [place], [place] [address]Dr. Airam Tripathi IG % 0.4 % Normal 0.0-0.5 [facility] Comment on above: Performed By: #### C BC ####[facility] Vkzcuktjal5760 [place] [id number]. Airam Deuce LYMPH # 1.2 103/ul Normal 1.2-3.8 [facility] Comment on above: Performed By: #### C BC ####[facility] Uoyfyqtvtc0001 [place] [id number]. Airam Deuce Lymphocytes/100 WBC (Bld) 25.0 % Normal 20.5-60.0 [facility] Comment on above: Performed By: #### C BC ####[facility] Opgqbmexkc1123 [place] [address]Dr. Selenaneil Tripathi MANUAL DIFF REQ NO Normal [facility] Comment on above: Performed By: #### C BC ####[facility] Bvgqkiljwz4807 [place] [address]Dr. Airam Deuce MCH (RBC) [Entitic mass] 30.7 pg Normal 26.7-34.0 [facility] Comment on above: Performed By: #### C BC ####[facility] Ncebjukkif57[address] [place], [place] [address]Dr. Airam Deuce MCHC (RBC) [Mass/Vol] 32.7 g/dL Normal 29.9-35.2 [facility] Comment on above: Performed By: #### C BC ####[facility] Ipoiwlnmjg7095 [place] [address]Dr. Airam Deuce MCV (RBC) [Entitic vol] 93.7 fL Normal 81.0-99.0 [facility] Comment on above: Performed By: #### C BC ####[facility] Zgwmjvshdr5350 [place] [address]Dr. Airam Deuce MONO # 0.4 103/ul Normal 0.3-0.8 [facility] Comment on above: Performed By: #### C BC ####[facility] Djeoixtmtt9119 [place] [address]Dr. Airam Deuce Monocytes/100 WBC (Bld) 7.5 % Normal 1.7-12.0 [facility] Comment on above: Performed By: #### C BC ####[facility] Ofywnslemk2091 [place] [id number]. Airam Tripathi NEUT # 3.1 103/ul Normal 1.4-6.5 [facility] Comment on above: Performed By: #### C BC ####[facility] Djgaebvnrx3746 [place] [address]Dr. Airam Tripathi Neutrophils/100 WBC (Bld) 62.8 % Normal 43.0-75.0 [facility] Comment on above: Performed By: #### C BC ####[facility] Frlszcsnsb7109 [place] [address]Dr. Airam Tripathi Platelet mean volume (Bld) [Entitic vol] 9.5 fL Normal 9.5-13.5 [facility] Comment on above: Performed By: #### C BC ####[facility] Swmocesgoa78[address] [place] [address]Dr. Airam Deuce PLT 250 103/ul Normal 150-450 [facility] Comment on above: Performed By: #### C BC ####[facility] Wskhjdvrpo44[address] [place], [place] [address]Dr. Airam Deuce RBC 3.49 106/ul Critically low 4.20-5.40 [facility] Comment on above: Performed By: #### C BC ####[facility] Kesssxzubm801[address] [place], [place] [address]Dr. Airam Tripathi WBC 4.9 103/ul Normal 4.0-11.0 [facility] Comment on above: Performed By: #### C BC ####[facility] [address] [place] [address]Dr. Airam Tripathi PROF 14(COMP METB)on 022 Albumin [Mass/Vol] 3.3 g/dL Critically low 3.4-5.0 [facility] Comment on above: Performed By: #### C MP ####[facility] T[address]vxiaobn[address] [place] [address]Dr. Airam Tripathi Albumin/Globulin [Mass ratio] 1.0 {ratio} Normal [facility] Comment on above: Performed By: #### C MP ####[facility] Dhqkjtlbtn[address] [place] [address]Dr. Airam Tripathi ALP [Catalytic activity/Vol] 127 U/L Critically high 46-116 [facility] Comment on above: Performed By: #### C MP ####[facility] Ocxmxynryg[address] [place] [address]Dr. Airam Tripathi ALT [Catalytic activity/Vol] 22 U/L Normal 14-59 [facility] Comment on above: Performed By: #### C MP ####[facility] Kxdsghnzgd[address] [place], [place] [address]Dr. Airam Tripathi Anion gap [Moles/Vol] 11.9 mmol/L Normal Th e [facility] Comment on above: Performed By: #### C MP ####[facility] Hdgxxmcnob8[address] [place], [place] [address]Dr. Airam Deuce AST [Catalytic activity/Vol] 21 U/L Normal 15-37 [facility] Comment on above: Performed By: #### C MP ####[facility] Jwegmhalfv158398 [address] [place], [place] [address]Dr. Airam Tripathi Bilirubin [Mass/Vol] 0.3 mg/dL Normal 0.2-1.0 [facility] Comment on above: Performed By: #### C MP ####[facility] Npzryflqmg069[address] [place], [place] [address]Dr. Airam Deuce Calcium [Mass/Vol] 8.6 mg/dL Normal 8.5-10.1 [facility] Comment on above: Performed By: #### C MP ####[facility] Ntvuizheyc393[address] [place], [place] [address]Dr. Airam Deuce Chloride [Moles/Vol] 105 mmol/L Normal 98-107 [facility] Comment on above: Performed By: #### C MP ####[facility] Iyqrkfkxao[address] [place], [place] [address]Dr. Airam Deuce CO2 [Moles/Vol] 23.6 mmol/L Normal 21.0-32.0 [facility] Comment on above: Performed By: #### C MP ####[facility] Uejhpmfyqq5787[address] [place], [place] [address]Dr. Airam Tripathi Creatinine [Mass/Vol] 1.29 mg/dL Critically high 0.55-1.02 [facility] Comment on above: Performed By: #### C MP ####[facility] [address]kprcoue[address] [place] [address]Dr. Airam Tripathi EGFR-AF [place] 51 mL/min/1.73m2 Critically low >=60 [facility] Comment on above: Performed By: #### C MP ####[facility] Uxhlgyhnzd[address] [place] [address]Dr. Airam Tripathi EGFR-NON AF [place] 42 mL/min/1.73m2 Critically low >=60 [facility] Comment on above: Performed By: #### C MP ####[facility] Ewlidtayjt377[address] [place], [place] [address]Dr. Airam Tripathi Globulin (S) [Mass/Vol] 3.2 g/dL Normal [facility] Comment on above: Performed By: #### C MP ####[facility] Jkwbdgdrpp1347[address] [place], [place] [address]Dr. Airam Tripathi Glucose [Mass/Vol] 94 mg/dL Normal 74-106 [facility] Comment on above: Performed By: #### C MP ####[facility] Zzkofdzzld310[address] [place], [place] [address]Dr. Airam Tripathi Potassium [Moles/Vol] 3.5 mmol/L Normal 3.5-5.1 [facility] Comment on above: Performed By: #### C MP ####[facility] Nznvyyfmnm213[address] [place], [place] [address]Dr. Airam Tripathi Protein [Mass/Vol] 6.5 g/dL Normal 6.4-8.2 [facility] Comment on above: Performed By: #### C MP ####[facility] Rkncsuvths728[address] [place], [place] [address]Dr. Airam Tripathi Sodium [Moles/Vol] 137 mmol/L Normal 136-145 [facility] Comment on above: Performed By: #### C MP ####[facility] Dopqgpetmn956[address] [place], [place] [address]Dr. Airam Tripathi Urea nitrogen [Mass/Vol] 37.0 mg/dL Critically high 7.0-18.0 [facility] Comment on above: Performed By: #### C MP ####[facility] Mowszrwnlh088[address] [place], [place] [address]Dr. Airam Tripathi Urea nitrogen/Creatinine [Mass ratio] 28.7 mg/mg Normal [facility] Comment on above: Performed By: #### C MP ####[facility] Qwozmtofrw2537[address] [place], [place] [address]Dr. Airam Tripathi OSMOLALITYon 02-20-2022 Osmolality [Osmolality] 283 mosm/kg Normal 275-295 [facility] Comment on above: Performed By: #### O SMO ####[facility] Fhbedwieqw990[address] [place], [place] [address]Dr. Airam Tripathi CBC AUTO DIFFon 02-17-2022 BASO # 0.0 103/ul Normal 0.0-0.1 [facility] Comment on above: Performed By: #### C BC ####[facility] Vhddggjxif7[address] [place], [place] [address]Dr. Airam Tripathi Basophils/100 WBC (Bld) 0.3 % Normal 0.2-2.0 [facility] Comment on above: Performed By: #### C BC ####[facility] Mpcnabchnq084[address] [place], [place] [address]Dr. Airam Tripathi EO # 0.1 103/ul Normal 0.0-0.7 [facility] Comment on above: Performed By: #### C BC ####[facility] Hvztovklgs708[address] [place], [place] [address]Dr. Airam Tripathi Eosinophils/100 WBC (Bld) 1.6 % Normal 0.9-7.0 [facility] Comment on above: Performed By: #### C BC ####[facility] Pbmupuerht595[address] [place], [place] [address]Dr. Airam Tripathi Erythrocyte distribution width (RBC) [Ratio] 13.4 % Normal 11.0-15.0 [facility] Comment on above: Performed By: #### C BC ####[facility] Rvnpzjqofp[address] [place] [address]Dr. Airam Tripathi Hematocrit (Bld) [Volume fraction] 31.4 % Critically low 36.0-48.0 [facility] Comment on above: Performed By: #### C BC ####[facility] Lrevqromtk[address] [place] [address]Dr. Airam Deuce Hemoglobin (Bld) [Mass/Vol] 10.0 g/dL Critically low 12.0-16.0 [facility] Comment on above: Performed By: #### C BC ####[facility] Rdpmvplipc67[address] [place] [address]Dr. Airam Tripathi IG # 0.03 10e3/ul Normal 0.00-0.03 [facility] Comment on above: Performed By: #### C BC ####[facility] Pvkivbkvde877[address] [place], [place] [address]Dr. Airam Tripathi IG % 0.4 % Normal 0.0-0.5 [facility] Comment on above: Performed By: #### C BC ####[facility] Qillsoeqbo79[address] [place], [place] [address]Dr. Airam Tripathi LYMPH # 1.6 103/ul Normal 1.2-3.8 [facility] Comment on above: Performed By: #### C BC ####[facility] Zzdhanlqwq198398 [address] [place], [place] [address]Dr. Airam Tirpathi Lymphocytes/100 WBC (Bld) 24.5 % Normal 20.5-60.0 [facility] Comment on above: Performed By: #### C BC ####[facility] Imbgdxfkor[address] [place], [place] [address]Dr. Selenaneil Tripathi MANUAL DIFF REQ NO Normal [facility] Comment on above: Performed By: #### C BC ####[facility] Lzvtvyzzzs08[address] [place], [place] [address]DrKianna Selenaneil Tripathi MCH (RBC) [Entitic mass] 30.2 pg Normal 26.7-34.0 [facility] Comment on above: Performed By: #### C BC ####[facility] Gxoocegczq32[address] [place], [place] [address]Dr. Airam Tripathi MCHC (RBC) [Mass/Vol] 31.8 g/dL Normal 29.9-35.2 [facility] Comment on above: Performed By: #### C BC ####[facility] W[address]ql[address]vj[address] [place] [id number]. Airam Deuce MCV (RBC) [Entitic vol] 94.9 fL Normal 81.0-99.0 [facility] Comment on above: Performed By: #### C BC ####[facility] Looddvouuu[address] [place] [phone]. Airam Deuce MONO # 0.4 103/ul Normal 0.3-0.8 [facility] Comment on above: Performed By: #### C BC ####[facility] Rpoquxhann[address] [place] [address]Dr. Airam Tripathi Monocytes/100 WBC (Bld) 5.8 % Normal 1.7-12.0 [facility] Comment on above: Performed By: #### C BC ####[facility] Bbdlmwykkq[address] [place] [address]Dr. Selenaneil Deuce NEUT # 4.5 103/ul Normal 1.4-6.5 [facility] Comment on above: Performed By: #### C BC ####[facility] T[address]zhtthsj8[address] [place] [phone]. Airam Deuce Neutrophils/100 WBC (Bld) 67.4 % Normal 43.0-75.0 [facility] Comment on above: Performed By: #### C BC ####[facility] Woyshdpums35[address] [place] [phone]. Airam Deuce Platelet mean volume (Bld) [Entitic vol] 9.6 fL Normal 9.5-13.5 [facility] Comment on above: Performed By: #### C BC ####[facility] Wqqkaypsrq4[address] [place] [phone]. Selenaneil Deuce PLT 251 103/ul Normal 150-450 [facility] Comment on above: Performed By: #### C BC ####[facility] [address]mldsok[address] [place] [address]Dr. Selenaneil Deuce RBC 3.31 106/ul Critically low 4.20-5.40 [facility] Comment on above: Performed By: #### C BC ####[facility] Dopsksqdhy[address] [place] [address]Dr. Airam Tripathi WBC 6.7 103/ul Normal 4.0-11.0 [facility] Comment on above: Performed By: #### C BC ####[facility] Rowupstpsk[address] [place] [address]Dr. Airam Tripathi PROF 14(COMP METB)on 022 Albumin [Mass/Vol] 3.5 g/dL Normal 3.4-5.0 [facility] Comment on above: Performed By: #### C MP ####[facility] Nwgwdvepkh287[address] [place], [place] [address]Dr. Airam Tripathi Albumin/Globulin [Mass ratio] 1.2 {ratio} Normal [facility] Comment on above: Performed By: #### C MP ####[facility] Snmqvqajpy337[address] [place], [place] [address]Dr. Airam Tripathi ALP [Catalytic activity/Vol] 130 U/L Critically high 46-116 [facility] Comment on above: Performed By: #### C MP ####[facility] Jpvmvselzk39[address] [place], [place] [address]Dr. Airam Tripathi ALT [Catalytic activity/Vol] 18 U/L Normal 14-59 [facility] Comment on above: Performed By: #### C MP ####[facility] Ltrrkwvlhu660[address] [place], [place] [address]Dr. Airam Tripathi Anion gap [Moles/Vol] 14.0 mmol/L Normal [facility] Comment on above: Performed By: #### C MP ####[facility] Zapqsbzrtb06[address] [place], [place] [address]Dr. Airam Tripathi AST [Catalytic activity/Vol] 20 U/L Normal 15-37 [facility] Comment on above: Performed By: #### C MP ####[facility] Akadsvlbve432[address] [place], [place] [address]Dr. Airam Tripathi Bilirubin [Mass/Vol] 0.3 mg/dL Normal 0.2-1.0 [facility] Comment on above: Performed By: #### C MP ####[facility] Nzgbejhsxk[address] [place], [place] [address]Dr. Airam Tripathi Calcium [Mass/Vol] 8.5 mg/dL Normal 8.5-10.1 [facility] Comment on above: Performed By: #### C MP ####[facility] Gtjqtarojc988[address] [place], [place] [address]Dr. Airam Deuce Chloride [Moles/Vol] 100 mmol/L Normal 98-107 [facility] Comment on above: Performed By: #### C MP ####[facility] Axlhxnkgxm940[address] [place], [place] [address]Dr. Airam Deuce CO2 [Moles/Vol] 22.7 mmol/L Normal 21.0-32.0 [facility] Comment on above: Performed By: #### C MP ####[facility] Waxgywftig426[address] [place], [place] [address]Dr. Airam Deuce Creatinine [Mass/Vol] 1.28 mg/dL Critically high 0.55-1.02 [facility] Comment on above: Performed By: #### C MP ####[facility] Nupsispbgv6740[address] [place], [place] [address]Dr. Airam Deuce EGFR-AF [place] 52 mL/min/1.73m2 Critically low >=60 [facility] Comment on above: Performed By: #### C MP ####[facility] Nzvdyoiocu745[address] [place], [place] [address]Dr. Selenaneil Deuce EGFR-NON AF [place] 43 mL/min/1.73m2 Critically low >=60 [facility] Comment on above: Performed By: #### C MP ####[facility] Atqeozptav1923[address] [place], [place] [address]Dr. Airam Tripathi Globulin (S) [Mass/Vol] 2.9 g/dL Normal [facility] Comment on above: Performed By: #### C MP ####[facility] Wtgqygxwbo534[address] [place], [place] [address]Dr. Airam Tripathi Glucose [Mass/Vol] 93 mg/dL Normal 74-106 [facility] Comment on above: Performed By: #### C MP ####[facility] Atdcpctvwo[address] [place] [address]Dr. Airam Tripathi Potassium [Moles/Vol] 3.7 mmol/L Normal 3.5-5.1 [facility] Comment on above: Performed By: #### C MP ####[facility] Kyqjgznexj9[address] [place], [place] [address]Dr. Airam Tripathi Protein [Mass/Vol] 6.4 g/dL Normal 6.4-8.2 [facility] Comment on above: Performed By: #### C MP ####[facility] Iazhmxgfyd3525[address] [place], [place] [address]Dr. Airam Tripathi Sodium [Moles/Vol] 133 mmol/L Critically low 136-145 Th [facility] Comment on above: Performed By: #### C MP ####[facility] Opstgzphyg5912[address] [place], [place] [address]Dr. Airam Tripathi Urea nitrogen [Mass/Vol] 44.0 mg/dL Critically high 7.0-18.0 [facility] Comment on above: Performed By: #### C MP ####[facility] Swjmpmygiw827[address] [place], [place] [address]Dr. Airam Tripathi Urea nitrogen/Creatinine [Mass ratio] 34.4 mg/mg Normal [facility] Comment on above: Performed By: #### C MP ####[facility] Flzluzlwly30[address] [place], [place] [address]Dr. Airam Tripathi OSMOLALITYon 02-10-2022 Osmolality [Osmolality] 288 mosm/kg Normal 275-295 [facility] Comment on above: Performed By: #### O SMO ####[facility] Yclvuvxyzb430[address] [place], [place] [address]Dr. Airam Tripathi CBC AUTO DIFFon 02-08-2022 BASO # 0.0 103/ul Normal 0.0-0.1 [facility] Comment on above: Performed By: #### C BC ####[facility] Alayvonrlr35[address] [place] [id number]. Airam Tripathi Basophils/100 WBC (Bld) 0.3 % Normal 0.2-2.0 [facility] Comment on above: Performed By: #### C BC ####[facility] Gqckrgxttm2678 [place] [phone]. Airam Tripathi EO # 0.2 103/ul Normal 0.0-0.7 [facility] Comment on above: Performed By: #### C BC ####[facility] Wytknbkxoj496[address] [place], [place] [address]Dr. Airam Tripathi Eosinophils/100 WBC (Bld) 2.1 % Normal 0.9-7.0 [facility] Comment on above: Performed By: #### C BC ####[facility] Ewfqitjrru468[address] [place], [place] [address]Dr. Airam Tripathi Erythrocyte distribution width (RBC) [Ratio] 13.4 % Normal 11.0-15.0 [facility] Comment on above: Performed By: #### C BC ####[facility] Eyuhofhljo[address] [place], [place] [address]Dr. Airam Tripathi Hematocrit (Bld) [Volume fraction] 35.1 % Critically low 36.0-48.0 [facility] Comment on above: Performed By: #### C BC ####[facility] Ywvpuheker[address] [place], [place] [address]Dr. Airam Tripathi Hemoglobin (Bld) [Mass/Vol] 10.9 g/dL Critically low 12.0-16.0 [facility] Comment on above: Performed By: #### C BC ####[facility] Gxesiypctp9[address] [place], [place] [address]Dr. Airam Tripathi IG # 0.03 10e3/ul Normal 0.00-0.03 [facility] Comment on above: Performed By: #### C BC ####[facility] Fjrpnmawej13[address] [place], [place] [address]Dr. Airam Tripathi IG % 0.3 % Normal 0.0-0.5 [facility] Comment on above: Performed By: #### C BC ####[facility] Jubnpqmvem37[address] [place] [id number]. Airam Tripathi LYMPH # 1.3 103/ul Normal 1.2-3.8 [facility] Comment on above: Performed By: #### C BC ####[facility] Vdumnomsuv2751 [place] [phone]. Airam Tripathi Lymphocytes/100 WBC (Bld) 13.1 % Critically low 20.5-60.0 [facility] Comment on above: Performed By: #### C BC ####[facility] Bpygxxvqaq86[address] [place] [phone]. Airam Tripathi MANUAL DIFF REQ NO Normal [facility] Comment on above: Performed By: #### C BC ####[facility] Wgunhfnajq[address] [place] [address]Dr. Airam Tripathi MCH (RBC) [Entitic mass] 30.4 pg Normal 26.7-34.0 [facility] Comment on above: Performed By: #### C BC ####[facility] Zseafltfba13[address] [place] [address]Dr. Airam Tripathi MCHC (RBC) [Mass/Vol] 31.1 g/dL Normal 29.9-35.2 [facility] Comment on above: Performed By: #### C BC ####[facility] Pdncsifyom0306 [place] [phone]. Airam Tripathi MCV (RBC) [Entitic vol] 98.0 fL Normal 81.0-99.0 [facility] Comment on above: Performed By: #### C BC ####[facility] Hpggiodiyp6623 [place] [phone]. Airam Tripathi MONO # 0.5 103/ul Normal 0.3-0.8 [facility] Comment on above: Performed By: #### C BC ####[facility] Bubxnlmlgi75[address] [place] [address]Dr. Airam Tripathi Monocytes/100 WBC (Bld) 4.7 % Normal 1.7-12.0 [facility] Comment on above: Performed By: #### C BC ####[facility] Ejxgarofbp5226 [place] [phone]. Airam Tripathi NEUT # 7.7 103/ul Critically high 1.4-6.5 [facility] Comment on above: Performed By: #### C BC ####[facility] Fcbialkjln7564 [place] [phone]. Airam Tripathi Neutrophils/100 WBC (Bld) 79.5 % Critically high 43.0-75.0 [facility] Comment on above: Performed By: #### C BC ####[facility] Ikixvwykte7497 [place] [phone]. Airam Deuce Platelet mean volume (Bld) [Entitic vol] 9.6 fL Normal 9.5-13.5 [facility] Comment on above: Performed By: #### C BC ####[facility] Ixcuterytm4451 [place] [phone]. Airam Tripathi PLT 268 103/ul Normal 150-450 [facility] Comment on above: Performed By: #### C BC ####[facility] Saiaaryivx8427 [place] [phone]. Airam Deuce RBC 3.58 106/ul Critically low 4.20-5.40 [facility] Comment on above: Performed By: #### C BC ####[facility] Bhdwjsnuqn6980 [place] [phone]. Airam Tripathi WBC 9.7 103/ul Normal 4.0-11.0 [facility] Comment on above: Performed By: #### C BC ####[facility] Nqsuesamtm26[address] [place] [address]Dr. Airam Tripathi PROF 14(COMP METB)on 022 Albumin [Mass/Vol] 3.6 g/dL Normal 3.4-5.0 [facility] Comment on above: Performed By: #### C MP ####[facility] Plwdekqehk4723 [place] [phone]. Airam Tripathi Albumin/Globulin [Mass ratio] 1.1 {ratio} Normal [facility] Comment on above: Performed By: #### C MP ####[facility] Pjuasxivji[address] [place] [address]Dr. Airam Tripathi ALP [Catalytic activity/Vol] 131 U/L Critically high 46-116 [facility] Comment on above: Performed By: #### C MP ####[facility] Qugsdmrmnt55[address] [place] [address]Dr. Airam Tripathi ALT [Catalytic activity/Vol] 22 U/L Normal 14-59 [facility] Comment on above: Performed By: #### C MP ####[facility] Ivjpavsfut6952 [place] [address]Dr. Airam Tripathi Anion gap [Moles/Vol] 13.3 mmol/L Normal Th e [facility] Comment on above: Performed By: #### C MP ####[facility] Arxfsmukod170[address] [place], [place] [address]Dr. Airam Tripathi AST [Catalytic activity/Vol] 23 U/L Normal 15-37 [facility] Comment on above: Performed By: #### C MP ####[facility] Bscowepkpd75[address] [place], [place] [address]Dr. Airam Tripathi Bilirubin [Mass/Vol] 0.3 mg/dL Normal 0.2-1.0 [facility] Comment on above: Performed By: #### C MP ####[facility] Hhbbcwnqky798[address] [place], [place] [address]Dr. Airam Tripathi Calcium [Mass/Vol] 8.7 mg/dL Normal 8.5-10.1 [facility] Comment on above: Performed By: #### C MP ####[facility] Bqhmipzrjp22[address] [place] [address]Dr. Airam Tripathi Chloride [Moles/Vol] 104 mmol/L Normal 98-107 [facility] Comment on above: Performed By: #### C MP ####[facility] Htlcwyvssb[address] [place], [place] [address]Dr. Airam Tripathi CO2 [Moles/Vol] 22.0 mmol/L Normal 21.0-32.0 [facility] Comment on above: Performed By: #### C MP ####[facility] Frzkayrsnk[address] [place], [place] [address]Dr. Airam Tripathi Creatinine [Mass/Vol] 1.20 mg/dL Critically high 0.55-1.02 [facility] Comment on above: Performed By: #### C MP ####[facility] Tapivzrums[address] [place] [address]Dr. Airam Tripathi EGFR-AF [place] 56 mL/min/1.73m2 Critically low >=60 [facility] Comment on above: Performed By: #### C MP ####[facility] Uaibtcnkno88[address] [place] [address]Dr. Airam Deuce EGFR-NON AF [place] 46 mL/min/1.73m2 Critically low >=60 [facility] Comment on above: Performed By: #### C MP ####[facility] Jknmoqxcef3[address] [place] [address]Dr. Selenaneil Deuce Globulin (S) [Mass/Vol] 3.2 g/dL Normal [facility] Comment on above: Performed By: #### C MP ####[facility] Njewfbmufh126[address] [place], [place] [address]Dr. Airam Deuce Glucose [Mass/Vol] 98 mg/dL Normal 74-106 [facility] Comment on above: Performed By: #### C MP ####[facility] Uogcxelizl1812[address] [place], [place] [address]Dr. Airam Deuce Potassium [Moles/Vol] 4.3 mmol/L Normal 3.5-5.1 [facility] Comment on above: Performed By: #### C MP ####[facility] Kohlkcnbij46[address] [place], [place] [address]Dr. Selenaneil Tripathi Protein [Mass/Vol] 6.8 g/dL Normal 6.4-8.2 [facility] Comment on above: Performed By: #### C MP ####[facility] Xyvdfdryaz49[address] [place], [place] [address]Dr. Airam Tripathi Sodium [Moles/Vol] 135 mmol/L Critically low 136-145 Th [facility] Comment on above: Performed By: #### C MP ####[facility] Gskpdtkvwl[address] [place], [place] [address]Dr. Airam Tripathi Urea nitrogen [Mass/Vol] 33.0 mg/dL Critically high 7.0-18.0 [facility] Comment on above: Performed By: #### C MP ####[facility] Qqhannmcuy49[address] [place] [address]Dr. Airam Tripathi Urea nitrogen/Creatinine [Mass ratio] 27.5 mg/mg Normal [facility] Comment on above: Performed By: #### C MP ####[facility] Ujkelcziav[address] [place], [place] [address]Dr. Airam Tripathi OSMOLALITYon 02-07-2022 Osmolality [Osmolality] 299 mosm/kg Critically high 275-295 [facility] Comment on above: Performed By: #### O SMO ####[facility] Jvnxxbfdlj20[address] [place], [place] [address]Dr. Airam Tripathi CBC AUTO DIFFon 02-03-2022 BASO # 0.0 103/ul Normal 0.0-0.1 [facility] Comment on above: Performed By: #### C BC ####[facility] Nddcueddoq9[address] [place], [place] [address]Dr. Airam Tripathi Basophils/100 WBC (Bld) 0.4 % Normal 0.2-2.0 [facility] Comment on above: Performed By: #### C BC ####[facility] Mlcbbmynnr[address] [place], [place] [address]Dr. Airam Tripathi EO # 0.3 103/ul Normal 0.0-0.7 [facility] Comment on above: Performed By: #### C BC ####[facility] [facility] Pjhqeylkfl[address] [place], [place] [address]Dr. Airam Tripathi Eosinophils/100 WBC (Bld) 3.6 % Normal 0.9-7.0 [facility] Comment on above: Performed By: #### C BC ####[facility] Fyczienswi52[address] [place], [place] [address]Dr. Airam Tripathi Erythrocyte distribution width (RBC) [Ratio] 13.2 % Normal 11.0-15.0 [facility] Comment on above: Performed By: #### C BC ####[facility] [address] [place] [address]Dr. Airam Tripathi Hematocrit (Bld) [Volume fraction] 32.0 % Critically low 36.0-48.0 [facility] Comment on above: Performed By: #### C BC ####[facility] Qzjogvzbik0985 [place] [address]Dr. Selenaneil Tripathi Hemoglobin (Bld) [Mass/Vol] 9.8 g/dL Critically low 12.0-16.0 [facility] Comment on above: Performed By: #### C BC ####[facility] Ddtoedwiwp920[address] [place], [place] [address]Dr. Airam Tripathi IG # 0.03 10e3/ul Normal 0.00-0.03 [facility] Comment on above: Performed By: #### C BC ####[facility] Gkyxtjhkqi432[address] [place], [place] [address]Dr. Airam Tripathi IG % 0.4 % Normal 0.0-0.5 [facility] Comment on above: Performed By: #### C BC ####[facility] Iuxwbntwsv204[address] [place], [place] [address]Dr. Airam Tripathi LYMPH # 1.7 103/ul Normal 1.2-3.8 [facility] Comment on above: Performed By: #### C BC ####[facility] Aimmuhfspy807[address] [place], [place] [address]Dr. Airam Tripathi Lymphocytes/100 WBC (Bld) 24.8 % Normal 20.5-60.0 [facility] Comment on above: Performed By: #### C BC ####[facility] Kjnwffwtgh5764[address] [place], [place] [address]Dr. Airam Tripathi MANUAL DIFF REQ NO Normal [facility] Comment on above: Performed By: #### C BC ####[facility] Tcqaeoowaw228[address] [place], [place] [address]Dr. Airam Tripathi MCH (RBC) [Entitic mass] 29.6 pg Normal 26.7-34.0 [facility] Comment on above: Performed By: #### C BC ####[facility] Kcgrbgypnv1497 [place] [id number]. Airam Tripathi MCHC (RBC) [Mass/Vol] 30.6 g/dL Normal 29.9-35.2 [facility] Comment on above: Performed By: #### C BC ####[facility] Bgtofdlxlh5830 [place] [phone]. Airam Tripathi MCV (RBC) [Entitic vol] 96.7 fL Normal 81.0-99.0 [facility] Comment on above: Performed By: #### C BC ####[facility] Piklijkdbx9079 [place] [phone]. Airam Tripathi MONO # 0.4 103/ul Normal 0.3-0.8 [facility] Comment on above: Performed By: #### C BC ####[facility] Sajnigvbcx100[address] [place], [place] [address]Dr. Airam Deuce Monocytes/100 WBC (Bld) 6.3 % Normal 1.7-12.0 [facility] Comment on above: Performed By: #### C BC ####[facility] Djrimumkng97[address] [place], [place] [address]Dr. Airam Tripathi NEUT # 4.5 103/ul Normal 1.4-6.5 [facility] Comment on above: Performed By: #### C BC ####[facility] Klmaiboloq4913[address] [place], [place] [address]Dr. Airam Tripathi Neutrophils/100 WBC (Bld) 64.5 % Normal 43.0-75.0 [facility] Comment on above: Performed By: #### C BC ####[facility] Rmqczmnzdc8697 [place] [phone]. Airam Tripathi Platelet mean volume (Bld) [Entitic vol] 9.3 fL Critically low 9.5-13.5 [facility] Comment on above: Performed By: #### C BC ####[facility] Tmlgllyqae6665[address] [place], [place] [address]Dr. Airam Deuce PLT 243 103/ul Normal 150-450 [facility] Comment on above: Performed By: #### C BC ####[facility] Arldmsimnr3315 [place] [phone]. Airam Tripathi RBC 3.31 106/ul Critically low 4.20-5.40 [facility] Comment on above: Performed By: #### C BC ####[facility] Dxopaubbdi6171 [place] [address]Dr. Airam Tripathi WBC 7.0 103/ul Normal 4.0-11.0 [facility] Comment on above: Performed By: #### C BC ####[facility] Qxzyuzpcmo4890 [place] [address]Dr. Airam Tripathi PROF 14(COMP METB)on 022 Albumin [Mass/Vol] 3.3 g/dL Critically low 3.4-5.0 [facility] Comment on above: Performed By: #### C MP ####[facility] Iwipylfitu[address] [place] [address]Dr. Airam Tripathi Albumin/Globulin [Mass ratio] 1.1 {ratio} Normal [facility] Comment on above: Performed By: #### C MP ####[facility] Ocgmxytgve6427[address] [place], [place] [address]Dr. Airam Tripathi ALP [Catalytic activity/Vol] 126 U/L Critically high 46-116 [facility] Comment on above: Performed By: #### C MP ####[facility] Rhqsamjyky4404 [place] [address]Dr. Airam Tripathi ALT [Catalytic activity/Vol] 21 U/L Normal 14-59 [facility] Comment on above: Performed By: #### C MP ####[facility] Nstnvphfgx288[address] [place], [place] [address]Dr. Airam Tripathi Anion gap [Moles/Vol] 11.8 mmol/L Normal [facility] Comment on above: Performed By: #### C MP ####[facility] Rzldwakxar819[address] [place], [place] [address]Dr. Airam Tripathi AST [Catalytic activity/Vol] 22 U/L Normal 15-37 [facility] Comment on above: Performed By: #### C MP ####[facility] Pvpztccpiy9614 [place] [address]Dr. Airam Tripathi Bilirubin [Mass/Vol] 0.3 mg/dL Normal 0.2-1.0 [facility] Comment on above: Performed By: #### C MP ####[facility] Nnqpqaihoy9427[address] [place], [place] [address]Dr. Airma Tripathi Calcium [Mass/Vol] 8.7 mg/dL Normal 8.5-10.1 [facility] Comment on above: Performed By: #### C MP ####[facility] Matijfsewy611[address] [place], [place] [address]Dr. Airam Tripathi Chloride [Moles/Vol] 102 mmol/L Normal 98-107 [facility] Comment on above: Performed By: #### C MP ####[facility] Nwhednndmk3568[address] [place], [place] [address]Dr. Airam Tripathi CO2 [Moles/Vol] 25.5 mmol/L Normal 21.0-32.0 [facility] Comment on above: Performed By: #### C MP ####[facility] Agrtjmqgiz367[address] [place], [place] [address]Dr. Airam Tripathi Creatinine [Mass/Vol] 1.43 mg/dL Critically high 0.55-1.02 [facility] Comment on above: Performed By: #### C MP ####[facility] Obsovuncmj9035[address] [place], [place] [address]Dr. Airam Tripathi EGFR-AF BARBADIAN 46 mL/min/1.73m2 Critically low >=60 [facility] Comment on above: Performed By: #### C MP ####[facility] Prkqzqtuud5488[address] [place], [place] [address]Dr. Airam Tripathi EGFR-NON AF [place] 38 mL/min/1.73m2 Critically low >=60 [facility] Comment on above: Performed By: #### C MP ####[facility] Qhxemmnbwx264[address] [place], [place] [address]Dr. Airam Tripathi Globulin (S) [Mass/Vol] 2.9 g/dL Normal [facility] Comment on above: Performed By: #### C MP ####[facility] Nzqonklnfq6[address] [place] [address]Dr. Airam Tripathi Glucose [Mass/Vol] 83 mg/dL Normal 74-106 [facility] Comment on above: Performed By: #### C MP ####[facility] Phkqekysag446398 [address] [place], [place] [address]Dr. Airam Tripathi Potassium [Moles/Vol] 4.3 mmol/L Normal 3.5-5.1 [facility] Comment on above: Performed By: #### C MP ####[facility] Kwjetergia192098 [address] [place], [place] [address]Dr. Airam Tripathi Protein [Mass/Vol] 6.2 g/dL Critically low 6.4-8.2 [facility] Comment on above: Performed By: #### C MP ####[facility] Ylzjicaqse5764[address] [place], [place] [address]Dr. Airam Tripathi Sodium [Moles/Vol] 135 mmol/L Critically low 136-145 [facility] Comment on above: Performed By: #### C MP ####[facility] Elvptfadow527[address] [place], [place] [address]Dr. Airam Tripathi Urea nitrogen [Mass/Vol] 39.0 mg/dL Critically high 7.0-18.0 [facility] Comment on above: Performed By: #### C MP ####[facility] Qzlklvakrk045[address] [place], [place] [address]Dr. Airam Tripathi Urea nitrogen/Creatinine [Mass ratio] 27.3 mg/mg Normal [facility] Comment on above: Performed By: #### C MP ####[facility] Wwzkkewofm717[address] [place], [place] [address]Dr. Airam Deuce OSMOLALITYon 02-02-2022 Osmolality [Osmolality] 292 mosm/kg Normal 275-295 [facility] Comment on above: Performed By: #### O SMO ####[facility] Apfsluwmff2901[address] [place], [place] [address]Dr. Airam Tripathi CBC AUTO DIFFon 01-27-2022 BASO # 0.0 103/ul Normal 0.0-0.1 [facility] Comment on above: Performed By: #### C BC ####[facility] Jgmcykwaoz9096 [place] [phone]. Airam Tripathi Basophils/100 WBC (Bld) 0.4 % Normal 0.2-2.0 [facility] Comment on above: Performed By: #### C BC ####[facility] Xilwjhimog408[address] [place], [place] [address]Dr. Airam Tripathi EO # 0.2 103/ul Normal 0.0-0.7 [facility] Comment on above: Performed By: #### C BC ####[facility] Jwbplccmva382[address] [place], [place] [address]Dr. Airam Tripathi Eosinophils/100 WBC (Bld) 3.4 % Normal 0.9-7.0 [facility] Comment on above: Performed By: #### C BC ####[facility] Msrcdvqumt145[address] [place], [place] [address]Dr. Airam Tripathi Erythrocyte distribution width (RBC) [Ratio] 13.1 % Normal 11.0-15.0 [facility] Comment on above: Performed By: #### C BC ####[facility] Oabvksyhgw628[address] [place], [place] [address]Dr. Airam Tripathi Hematocrit (Bld) [Volume fraction] 31.6 % Critically low 36.0-48.0 [facility] Comment on above: Performed By: #### C BC ####[facility] Llwyfpalqx51[address] [place], [place] [address]Dr. Airam Tripathi Hemoglobin (Bld) [Mass/Vol] 9.9 g/dL Critically low 12.0-16.0 [facility] Comment on above: Performed By: #### C BC ####[facility] Rofgemsoww149[address] [place], [place] [address]Dr. Airam Tripathi IG # 0.02 10e3/ul Normal 0.00-0.03 [facility] Comment on above: Performed By: #### C BC ####[facility] Ihblzpeeao429498 [address] [place], [place] [address]Dr. Airam Tripathi IG % 0.4 % Normal 0.0-0.5 [facility] Comment on above: Performed By: #### C BC ####[facility] Dqpiisfwoq2619 [place] [phone]. Airam Tripathi LYMPH # 1.0 103/ul Critically low 1.2-3.8 [facility] Comment on above: Performed By: #### C BC ####[facility] Icsvakvtyh9560 [place] [phone]. Airam Deuce Lymphocytes/100 WBC (Bld) 17.4 % Critically low 20.5-60.0 [facility] Comment on above: Performed By: #### C BC ####[facility] Jxgobygzuy13[address] [place] [address]Dr. Selenaneil Tripathi MANUAL DIFF REQ NO Normal [facility] Comment on above: Performed By: #### C BC ####[facility] Nuwgkehlwy585[address] [place], [place] [address]Dr. Airam Deuce MCH (RBC) [Entitic mass] 30.1 pg Normal 26.7-34.0 [facility] Comment on above: Performed By: #### C BC ####[facility] Iwcedbsajq[address] [place] [address]Dr. Airam Tripathi MCHC (RBC) [Mass/Vol] 31.3 g/dL Normal 29.9-35.2 [facility] Comment on above: Performed By: #### C BC ####[facility] Riolpdufge6516 [place] [address]Dr. Airam Deuce MCV (RBC) [Entitic vol] 96.0 fL Normal 81.0-99.0 [facility] Comment on above: Performed By: #### C BC ####[facility] Jmgzcofrbm0682 [place] [address]Dr. Airam Tripathi MONO # 0.5 103/ul Normal 0.3-0.8 [facility] Comment on above: Performed By: #### C BC ####[facility] Gqlmrwvjjj[address] [place], [place] [address]Dr. Selenaneil Tripathi Monocytes/100 WBC (Bld) 8.6 % Normal 1.7-12.0 [facility] Comment on above: Performed By: #### C BC ####[facility] Aawrzetxvw8313 [place] [phone]. Airam Tripathi NEUT # 3.9 103/ul Normal 1.4-6.5 [facility] Comment on above: Performed By: #### C BC ####[facility] Zgtrgklpyd2141 [place] [phone]. Airam Tripathi Neutrophils/100 WBC (Bld) 69.8 % Normal 43.0-75.0 [facility] Comment on above: Performed By: #### C BC ####[facility] Vsckejyqng2596 [place] [phone]. Airam Tripathi Platelet mean volume (Bld) [Entitic vol] 9.6 fL Normal 9.5-13.5 [facility] Comment on above: Performed By: #### C BC ####[facility] Tkysegqyjb0897 [place] [address]Dr. Airam Tripathi PLT 228 103/ul Normal 150-450 [facility] Comment on above: Performed By: #### C BC ####[facility] Mddynpmzps7[address] [place], [place] [address]Dr. Airam Tripathi RBC 3.29 106/ul Critically low 4.20-5.40 [facility] Comment on above: Performed By: #### C BC ####[facility] Rxlmopxyeb758[address] [place], [place] [address]Dr. Airam Tripathi WBC 5.6 103/ul Normal 4.0-11.0 [facility] Comment on above: Performed By: #### C BC ####[facility] Qavzkvskof09[address] [place], [place] [address]Dr. Airam Tripathi PROF 14(COMP METB)on 022 Albumin [Mass/Vol] 3.1 g/dL Critically low 3.4-5.0 [facility] Comment on above: Performed By: #### C MP ####[facility] Kmlidjiriw3641 [place] [address]Dr. Selenaneil Deuce Albumin/Globulin [Mass ratio] 1.0 {ratio} Normal [facility] Comment on above: Performed By: #### C MP ####[facility] Hyjfqqexew2688 [place] [phone]. Airam Tripathi ALP [Catalytic activity/Vol] 131 U/L Critically high 46-116 [facility] Comment on above: Performed By: #### C MP ####[facility] Nuovexehjn5954 [place] [phone]. Airam Tripathi ALT [Catalytic activity/Vol] 19 U/L Normal 14-59 [facility] Comment on above: Performed By: #### C MP ####[facility] Kfalakfdhf1731 [place] [address]Dr. Airam Tripathi Anion gap [Moles/Vol] 12.9 mmol/L Normal [facility] Comment on above: Performed By: #### C MP ####[facility] Nfxzszxfoh9[address] [place], [place] [address]Dr. Airam Tripathi AST [Catalytic activity/Vol] 21 U/L Normal 15-37 [facility] Comment on above: Performed By: #### C MP ####[facility] Ylqkxguqhr9840[address] [place], [place] [address]Dr. Airam Tripathi Bilirubin [Mass/Vol] 0.2 mg/dL Normal 0.2-1.0 [facility] Comment on above: Performed By: #### C MP ####[facility] Uxilydnnwl495[address] [place], [place] [address]Dr. Airam Tripathi Calcium [Mass/Vol] 8.4 mg/dL Critically low 8.5-10.1 [facility] Comment on above: Performed By: #### C MP ####[facility] Xsvyrzcduh4931 [place] [address]Dr. Airam Tripathi Chloride [Moles/Vol] 103 mmol/L Normal 98-107 [facility] Comment on above: Performed By: #### C MP ####[facility] Mtjhflnqdr0463 [place] [address]Dr. Airam Tripathi CO2 [Moles/Vol] 23.7 mmol/L Normal 21.0-32.0 [facility] Comment on above: Performed By: #### C MP ####[facility] Erhgdmsfjo1812 [place] [phone]. Airam Tripathi Creatinine [Mass/Vol] 1.37 mg/dL Critically high 0.55-1.02 [facility] Comment on above: Performed By: #### C MP ####[facility] Kvqlevqmvc4878 [place] [phone]. Airam Tripathi EGFR-AF [place] 48 mL/min/1.73m2 Critically low >=60 [facility] Comment on above: Performed By: #### C MP ####[facility] Lkqhqaflze0275 [place] [phone]. Airam Tripathi EGFR-NON AF [place] 39 mL/min/1.73m2 Critically low >=60 [facility] Comment on above: Performed By: #### C MP ####[facility] Othwsctzbz5313 [place] [phone]. Airam Tripathi Globulin (S) [Mass/Vol] 3.1 g/dL Normal [facility] Comment on above: Performed By: #### C MP ####[facility] Zjmctomiae2486 [place] [phone]. Airam Tripathi Glucose [Mass/Vol] 88 mg/dL Normal 74-106 [facility] Comment on above: Performed By: #### C MP ####[facility] Qwjegulkqq2299 [place] [phone]. Airam Tripathi Potassium [Moles/Vol] 4.6 mmol/L Normal 3.5-5.1 [facility] Comment on above: Performed By: #### C MP ####[facility] Llujlvjodv5680 [place] [phone]. Airam Tripathi Protein [Mass/Vol] 6.2 g/dL Critically low 6.4-8.2 [facility] Comment on above: Performed By: #### C MP ####[facility] Xzmwiilugg9635 [place] [phone]. Airam Tripathi Sodium [Moles/Vol] 135 mmol/L Critically low 136-145 [facility] Comment on above: Performed By: #### C MP ####[facility] Bxhmizipvx7[address] [place], [place] [address]Dr. Airam Tripathi Urea nitrogen [Mass/Vol] 34.0 mg/dL Critically high 7.0-18.0 [facility] Comment on above: Performed By: #### C MP ####[facility] Mvxnnennmf2769 [place] [address]Dr. Airam Tripathi Urea nitrogen/Creatinine [Mass ratio] 24.8 mg/mg Normal [facility] Comment on above: Performed By: #### C MP ####[facility] Boaxghchqd292[address] [place], [place] [address]Dr. Airam Tripathi OSMOLALITYon 01-21-2022 Osmolality [Osmolality] 276 mosm/kg Normal 275-295 [facility] Comment on above: Performed By: #### O SMO ####[facility] Oygepgcbdj350[address] [place], [place] [address]Dr. Airam Tripathi MRI CSPINE WO CONon 01-21-20 MRI CSPINE WO CON Normal [facility] CBC AUTO DIFFon 01-19-2022 BASO # 0.0 103/ul Normal 0.0-0.1 [facility] Comment on above: Performed By: #### C BC ####[facility] Ewrsyjqype3917[address] [place], [place] [address]Dr. Airam eDuce Basophils/100 WBC (Bld) 0.2 % Normal 0.2-2.0 [facility] Comment on above: Performed By: #### C BC ####[facility] Wozywsgdnb304[address] [place], [place] [address]Dr. Airam Deuce EO # 0.2 103/ul Normal 0.0-0.7 [facility] Comment on above: Performed By: #### C BC ####[facility] Wkcyxlctkk989[address] [place], [place] [address]Dr. Selenaneil Deuce Eosinophils/100 WBC (Bld) 2.1 % Normal 0.9-7.0 [facility] Comment on above: Performed By: #### C BC ####[facility] Wqmefbwoix648[address] [place], [place] [address]Dr. Selenaneil Deuce Erythrocyte distribution width (RBC) [Ratio] 12.7 % Normal 11.0-15.0 [facility] Comment on above: Performed By: #### C BC ####[facility] Bkoyygicje6798 [place] [address]Dr. Airam Tripathi Hematocrit (Bld) [Volume fraction] 32.2 % Critically low 36.0-48.0 [facility] Comment on above: Performed By: #### C BC ####[facility] Wisnfddccd837[address] [place], [place] [address]Dr. Selenaneil Tripathi Hemoglobin (Bld) [Mass/Vol] 10.4 g/dL Critically low 12.0-16.0 [facility] Comment on above: Performed By: #### C BC ####[facility] Jeytanskmn599[address] [place], [place] [address]Dr. Airam Tripathi IG # 0.03 10e3/ul Normal 0.00-0.03 [facility] Comment on above: Performed By: #### C BC ####[facility] Iqptgnwmyx0216[address] [place], [place] [address]Dr. Selenaneil Tripathi IG % 0.3 % Normal 0.0-0.5 [facility] Comment on above: Performed By: #### C BC ####[facility] Rjbfqrbokw201[address] [place], [place] [address]DrKianna Airam Tirpathi LYMPH # 1.4 103/ul Normal 1.2-3.8 [facility] Comment on above: Performed By: #### C BC ####[facility] Qjnynrijpi6033[address] [place], [place] [address]Dr. Selenaneil Tripathi Lymphocytes/100 WBC (Bld) 16.0 % Critically low 20.5-60.0 [facility] Comment on above: Performed By: #### C BC ####[facility] Mipbvgkedy6817[address] [place], [place] [address]DrKianna Tripathi MANUAL DIFF REQ NO Normal [facility] Comment on above: Performed By: #### C BC ####[facility] Exufatacli936[address] [place], [place] [address]DrKianna Tripathi MCH (RBC) [Entitic mass] 30.0 pg Normal 26.7-34.0 [facility] Comment on above: Performed By: #### C BC ####[facility] Shxzodjcpd0708 [place] [address]DrKianna Tripathi MCHC (RBC) [Mass/Vol] 32.3 g/dL Normal 29.9-35.2 [facility] Comment on above: Performed By: #### C BC ####[facility] Xwyqtlcluq8544[address] [place], [place] [address]DrKianna Tripathi MCV (RBC) [Entitic vol] 92.8 fL Normal 81.0-99.0 [facility] Comment on above: Performed By: #### C BC ####[facility] Jbydqxgfru0118[address] [place], [place] [address]DrKianna Tripathi MONO # 0.4 103/ul Normal 0.3-0.8 [facility] Comment on above: Performed By: #### C BC ####[facility] Kmzrtbizel3938[address] [place], [place] [address]DrKianna Tripathi Monocytes/100 WBC (Bld) 4.9 % Normal 1.7-12.0 [facility] Comment on above: Performed By: #### C BC ####[facility] Glrrcrmxxa3033[address] [place], [place] [address]DrKianna Tripathi NEUT # 6.6 103/ul Critically high 1.4-6.5 [facility] Comment on above: Performed By: #### C BC ####[facility] Iukcmrwqtu915[address] [place], [place] [address]DrKianna Tripathi Neutrophils/100 WBC (Bld) 76.5 % Critically high 43.0-75.0 [facility] Comment on above: Performed By: #### C BC ####[facility] Fwmimzidha1324[address] [place], [place] [address]DrKianna Tripathi Platelet mean volume (Bld) [Entitic vol] 9.8 fL Normal 9.5-13.5 [facility] Comment on above: Performed By: #### C BC ####[facility] Fmpevypkzr3867[address] [place], [place] [address]Dr. Airam Tripathi PLT 262 103/ul Normal 150-450 [facility] Comment on above: Performed By: #### C BC ####[facility] Mesisluftx6774 [place] [address]Dr. Selenaneil Deuce RBC 3.47 106/ul Critically low 4.20-5.40 [facility] Comment on above: Performed By: #### C BC ####[facility] Ejdwovogrz6677 [place] [address]Dr. Airam Tripathi WBC 8.7 103/ul Normal 4.0-11.0 [facility] Comment on above: Performed By: #### C BC ####[facility] Rezmsmkcam5994 [place] [address]DrKianna Tripathi PROF 14(COMP METB)on 022 Albumin [Mass/Vol] 3.3 g/dL Critically low 3.4-5.0 [facility] Comment on above: Performed By: #### C MP ####[facility] Rrfvgyngjd136[address] [place], [place] [address]Dr. Airam Tripathi Albumin/Globulin [Mass ratio] 1.1 {ratio} Normal [facility] Comment on above: Performed By: #### C MP ####[facility] Tieuvelzid9[address] [place], [place] [address]Dr. Airam Tripathi ALP [Catalytic activity/Vol] 114 U/L Normal 46-116 [facility] Comment on above: Performed By: #### C MP ####[facility] [facility] [address] [place] [address]Dr. Airam Tripathi ALT [Catalytic activity/Vol] 20 U/L Normal 14-59 [facility] Comment on above: Performed By: #### C MP ####[facility] Auclbzvyfh[address] [place] [address]Dr. Airam Tripathi Anion gap [Moles/Vol] 14.7 mmol/L Normal [facility] Comment on above: Performed By: #### C MP ####[facility] Wtsemjzfiq22[address] [place], [place] [address]Dr. Airam Tripathi AST [Catalytic activity/Vol] 22 U/L Normal 15-37 [facility] Comment on above: Performed By: #### C MP ####[facility] Ztdwcshixj815[address] [place], [place] [address]Dr. Airam Tripathi Bilirubin [Mass/Vol] 0.3 mg/dL Normal 0.2-1.0 [facility] Comment on above: Performed By: #### C MP ####[facility] Gmxxzgnerj688[address] [place], [place] [address]Dr. Airam Tripathi Calcium [Mass/Vol] 8.8 mg/dL Normal 8.5-10.1 [facility] Comment on above: Performed By: #### C MP ####[facility] Futbsjmlur635[address] [place], [place] [address]Dr. Airam Tripathi Chloride [Moles/Vol] 97 mmol/L Critically low 98-107 [facility] Comment on above: Performed By: #### C MP ####[facility] Cocjjqjgyh701[address] [place], [place] [address]Dr. Airam Tripathi CO2 [Moles/Vol] 24.5 mmol/L Normal 21.0-32.0 [facility] Comment on above: Performed By: #### C MP ####[facility] Xhgxlbwxnf455[address] [place], [place] [address]Dr. Airam Tripathi Creatinine [Mass/Vol] 1.28 mg/dL Critically high 0.55-1.02 [facility] Comment on above: Performed By: #### C MP ####[facility] Lqiqzzvfji0512[address] [place], [place] [address]Dr. Airam Tripathi EGFR-AF BARBADIAN 52 mL/min/1.73m2 Critically low >=60 [facility] Comment on above: Performed By: #### C MP ####[facility] Ltilgdists900[address] [place], [place] [address]Dr. Airam Tripathi EGFR-NON AF BAR[place]IAN 43 mL/min/1.73m2 Critically low >=60 [facility] Comment on above: Performed By: #### C MP ####[facility] Agmxzajgri201[address] [place], [place] [address]Dr. Airam Tripathi Globulin (S) [Mass/Vol] 3.1 g/dL Normal [facility] Comment on above: Performed By: #### C MP ####[facility] [address] [place] [address]Dr. Airam Tripathi Glucose [Mass/Vol] 87 mg/dL Normal 74-106 [facility] Comment on above: Performed By: #### C MP ####[facility] Asmpinfvkm809998 [address] [place], [place] [address]Dr. Airam Deuce Potassium [Moles/Vol] 4.2 mmol/L Normal 3.5-5.1 [facility] Comment on above: Performed By: #### C MP ####[facility] Pmjqwoafkb2030[address] [place], [place] [address]Dr. Airam Tripathi Protein [Mass/Vol] 6.4 g/dL Normal 6.4-8.2 [facility] Comment on above: Performed By: #### C MP ####[facility] Nnwqexvjzo3734[address] [place], [place] [address]Dr. Selenaneil Deuce Sodium [Moles/Vol] 132 mmol/L Critically low 136-145 Th [facility] Comment on above: Performed By: #### C MP ####[facility] Usqbfimnsv1912[address] [place], [place] [address]Dr. Airam Deuce Urea nitrogen [Mass/Vol] 36.0 mg/dL Critically high 7.0-18.0 [facility] Comment on above: Performed By: #### C MP ####[facility] Ikkbjmxdjp209498 [address] [place], [place] [address]Dr. Airam Tripathi Urea nitrogen/Creatinine [Mass ratio] 28.1 mg/mg Normal [facility] Comment on above: Performed By: #### C MP ####[facility] Ghemihlsuv644[address] [place], [place] [address]Dr. Airam Tripathi XR DEXA BONE DENSITYon 01-19 XR DEXA BONE DENSITY Normal [facility] OSMOLALITYon 01-13-2022 Osmolality [Osmolality] 277 mosm/kg Normal 275-295 [facility] Comment on above: Performed By: #### O SMO ####[facility] Dudxpbsuel9070[address] [place], [place] [address]Dr. Airam Tripathi CBC AUTO DIFFon 01-11-2022 BASO # 0.0 103/ul Normal 0.0-0.1 [facility] Comment on above: Performed By: #### C BC ####[facility] Pqnzwyuvhh054698 [address] [place], [place] [address]Dr. Airam Deuce Basophils/100 WBC (Bld) 0.5 % Normal 0.2-2.0 [facility] Comment on above: Performed By: #### C BC ####[facility] Mezkonames8414[address] [place], [place] [address]Dr. Airam Deuce EO # 0.2 103/ul Normal 0.0-0.7 [facility] Comment on above: Performed By: #### C BC ####[facility] Yauxgcapak0487[address] [place], [place] [address]Dr. Selenaneil Tripathi Eosinophils/100 WBC (Bld) 3.1 % Normal 0.9-7.0 [facility] Comment on above: Performed By: #### C BC ####[facility] Jlsylomoum7638[address] [place], [place] [address]Dr. Airam Tripathi Erythrocyte distribution width (RBC) [Ratio] 12.5 % Normal 11.0-15.0 [facility] Comment on above: Performed By: #### C BC ####[facility] Wuupkvshbk419398 [address] [place], [place] [address]Dr. Airam Tripathi Hematocrit (Bld) [Volume fraction] 34.4 % Critically low 36.0-48.0 [facility] Comment on above: Performed By: #### C BC ####[facility] Jcobsfumtd501[address] [place], [place] [address]Dr. Selenaneil Tripathi Hemoglobin (Bld) [Mass/Vol] 11.0 g/dL Critically low 12.0-16.0 [facility] Comment on above: Performed By: #### C BC ####[facility] Eiaclrvjdn5414[address] [place], [place] [address]Dr. Airam Tripathi IG # 0.03 10e3/ul Normal 0.00-0.03 [facility] Comment on above: Performed By: #### C BC ####[facility] Qrrsraxipj[address] [place] [id number]. Airam Tripathi IG % 0.5 % Normal 0.0-0.5 [facility] Comment on above: Performed By: #### C BC ####[facility] Trdrrgnnil38[address] [place] [id number]. Airam Tripathi LYMPH # 1.6 103/ul Normal 1.2-3.8 [facility] Comment on above: Performed By: #### C BC ####[facility] Lhkdvvyidb2[address] [place] [id number]. Airam Deuce Lymphocytes/100 WBC (Bld) 28.0 % Normal 20.5-60.0 [facility] Comment on above: Performed By: #### C BC ####[facility] Gsmainzvwj280[address] [place], [place] [address]Dr. Selenaneil Tripathi MANUAL DIFF REQ NO Normal [facility] Comment on above: Performed By: #### C BC ####[facility] Zqbotynvip3715[address] [place], [place] [address]Dr. Airam Tripathi MCH (RBC) [Entitic mass] 30.1 pg Normal 26.7-34.0 [facility] Comment on above: Performed By: #### C BC ####[facility] Iasblzwpkz1830[address] [place], [place] [address]Dr. Airam Tripathi MCHC (RBC) [Mass/Vol] 32.0 g/dL Normal 29.9-35.2 [facility] Comment on above: Performed By: #### C BC ####[facility] Uwjynuvwbq[address] [place], [place] [address]Dr. Airam Tripathi MCV (RBC) [Entitic vol] 94.0 fL Normal 81.0-99.0 [facility] Comment on above: Performed By: #### C BC ####[facility] Frhkawchcy837398 [address] [place], [place] [address]Dr. Airam Deuce MONO # 0.4 103/ul Normal 0.3-0.8 [facility] Comment on above: Performed By: #### C BC ####[facility] Lowaqfrlcm[address] [place] [id number]. Airam Tripathi Monocytes/100 WBC (Bld) 7.5 % Normal 1.7-12.0 [facility] Comment on above: Performed By: #### C BC ####[facility] K[address]xupnkeef[address] [place] [id number]. Airam Tripathi NEUT # 3.5 103/ul Normal 1.4-6.5 [facility] Comment on above: Performed By: #### C BC ####[facility] Gypwxnppya[address] [place] [address]Dr. Airam Tripathi Neutrophils/100 WBC (Bld) 60.4 % Normal 43.0-75.0 [facility] Comment on above: Performed By: #### C BC ####[facility] [address]xdrpfgik[address] [place] [address]Dr. Airam Tripathi Platelet mean volume (Bld) [Entitic vol] 10.0 fL Normal 9.5-13.5 [facility] Comment on above: Performed By: #### C BC ####[facility] [address]oc[address] [place] [address]Dr. Airam Tripathi PLT 300 103/ul Normal 150-450 [facility] Comment on above: Performed By: #### C BC ####[facility] Ukjcwbxczm4[address] [place] [phone]. Airam Tripathi RBC 3.66 106/ul Critically low 4.20-5.40 [facility] Comment on above: Performed By: #### C BC ####[facility] Jgluwfcxus57[address] [place], [place] [address]Dr. Airam Tripathi WBC 5.7 103/ul Normal 4.0-11.0 [facility] Comment on above: Performed By: #### C BC ####[facility] Qpvmkruqsk027[address] [place], [place] [address]Dr. Airam Tripathi PROF 14(COMP METB)on 022 Albumin [Mass/Vol] 3.3 g/dL Critically low 3.4-5.0 [facility] Comment on above: Performed By: #### C MP ####[facility] K[address]tylnfi[address] [place] [address]Dr. Selenaneil Deuce Albumin/Globulin [Mass ratio] 1.0 {ratio} Normal [facility] Comment on above: Performed By: #### C MP ####[facility] [address]krurue[address] [place] [address]Dr. Airam Tripathi ALP [Catalytic activity/Vol] 138 U/L Critically high 46-116 [facility] Comment on above: Performed By: #### C MP ####[facility] Hzzelqvjdl507[address] [place], [place] [address]Dr. Airam Tripathi ALT [Catalytic activity/Vol] 25 U/L Normal 14-59 [facility] Comment on above: Performed By: #### C MP ####[facility] Nlwyvuazvm7310[address] [place], [place] [address]Dr. Airam Tripathi Anion gap [Moles/Vol] 14.0 mmol/L Normal [facility] Comment on above: Performed By: #### C MP ####[facility] Fkrweqxtqr174[address] [place], [place] [address]Dr. Airam Tripathi AST [Catalytic activity/Vol] 19 U/L Normal 15-37 [facility] Comment on above: Performed By: #### C MP ####[facility] Tmmdnhzick296[address] [place], [place] [address]Dr. Airam Tripathi Bilirubin [Mass/Vol] 0.3 mg/dL Normal 0.2-1.0 [facility] Comment on above: Performed By: #### C MP ####[facility] Vyvnkvltrw314[address] [place], [place] [address]Dr. Airam Tripathi Calcium [Mass/Vol] 8.7 mg/dL Normal 8.5-10.1 [facility] Comment on above: Performed By: #### C MP ####[facility] Bpselagpix444[address] [place], [place] [address]Dr. Airam Tripathi Chloride [Moles/Vol] 99 mmol/L Normal 98-107 [facility] Comment on above: Performed By: #### C MP ####[facility] L[address]csvdxxh[address] [place] [address]Dr. Airam Tripathi CO2 [Moles/Vol] 25.4 mmol/L Normal 21.0-32.0 [facility] Comment on above: Performed By: #### C MP ####[facility] [address]ajtqh[address] [place] [address]Dr. Airam Tripathi Creatinine [Mass/Vol] 1.22 mg/dL Critically high 0.55-1.02 [facility] Comment on above: Performed By: #### C MP ####[facility] Wbvkrnqgyj7[address] [place] [id number]. Airam Tripathi EGFR-AF BAR[place]IAN 55 mL/min/1.73m2 Critically low >=60 [facility] Comment on above: Performed By: #### C MP ####[facility] [address]kbq[address]ubys[address] [place] [address]Dr. Airam Tripathi EGFR-NON AF [place]IAN 45 mL/min/1.73m2 Critically low >=60 [facility] Comment on above: Performed By: #### C MP ####[facility] Uavaumnouz[address] [place] [address]Dr. Airam Tripathi Globulin (S) [Mass/Vol] 3.2 g/dL Normal [facility] Comment on above: Performed By: #### C MP ####[facility] Sakjvpnyvg[address] [place] [address]Dr. Airam Tripathi Glucose [Mass/Vol] 111 mg/dL Critically high 74-106 T [facility] Comment on above: Performed By: #### C MP ####[facility] Xfrx[address]bkhp[address] [place] [address]Dr. Airam Tripathi Potassium [Moles/Vol] 4.4 mmol/L Normal 3.5-5.1 [facility] Comment on above: Performed By: #### C MP ####[facility] Odyaydicts[address] [place] [address]Dr. Airam Tripathi Protein [Mass/Vol] 6.5 g/dL Normal 6.4-8.2 [facility] Comment on above: Performed By: #### C MP ####[facility] [address]zh[address] [place], [place] [address]Li. Airam Tripathi Sodium [Moles/Vol] 134 mmol/L Critically low 136-145 Th [facility] Comment on above: Performed By: #### C MP ####[facility] Xhjzroerun7935 [place], [place] [address]Pc. Airam Tripathi Urea nitrogen [Mass/Vol] 27.0 mg/dL Critically high 7.0-18.0 [facility] Comment on above: Performed By: #### C MP ####[facility] Wupknqayym74[address] [place], [place] [address]Bx. Airam Tripathi Urea nitrogen/Creatinine [Mass ratio] 22.1 mg/mg Normal [facility] Comment on above: Performed By: #### C MP ####[facility] Lnxbczskgm2993 [place], [place] [address]Re. Air[address] CT CERVICAL SPINE WITHOUT CO NTRASTon 01-10-2022 CT CERVICAL SPINE WITHOUT CONTRAST [facility] Department of Radiology [address] [place] [id number] Patient Name: MABEL MOSER : 1960 [...] achievable. Electronically signed: Ayleen Ny. Transcribed by: [email or web address], User Resident: Electronically Signed by: AYLEEN NY @ 01/12/2022 12:32 PM Normal [facility] OSMOLALITYon 01-07-2022 Osmolality [Osmolality] 286 mosm/kg Normal 275-295 [facility] Comment on above: Performed By: #### O SMO ####[facility] [address]js[address]hnj[address] [place] [id number] Tripathi CBC AUTO DIFFon 01-06-2022 BASO # 0.0 103/ul Normal 0.0-0.1 [facility] Comment on above: Performed By: #### C BC ####[facility] [address]orbxfsni[address] [place] [address]Dr. Airam Tripathi Basophils/100 WBC (Bld) 0.3 % Normal 0.2-2.0 [facility] Comment on above: Performed By: #### C BC ####[facility] Umezxnhqty068[address] [place], [place] [address]Dr. Airam Tripathi EO # 0.2 103/ul Normal 0.0-0.7 [facility] Comment on above: Performed By: #### C BC ####[facility] Slvdlgjerx760[address] [place], [place] [address]Dr. Airam Tripathi Eosinophils/100 WBC (Bld) 4.1 % Normal 0.9-7.0 [facility] Comment on above: Performed By: #### C BC ####[facility] Ndircdvvkq958[address] [place], [place] [address]Dr. Airam Tripathi Erythrocyte distribution width (RBC) [Ratio] 12.9 % Normal 11.0-15.0 [facility] Comment on above: Performed By: #### C BC ####[facility] Yssjlhebtc675[address] [place], [place] [address]Dr. Airam Tripathi Hematocrit (Bld) [Volume fraction] 34.2 % Critically low 36.0-48.0 [facility] Comment on above: Performed By: #### C BC ####[facility] Ddwoszetky69[address] [place], [place] [address]Dr. Airam Tripathi Hemoglobin (Bld) [Mass/Vol] 10.6 g/dL Critically low 12.0-16.0 [facility] Comment on above: Performed By: #### C BC ####[facility] Yzolpzxikb174[address] [place], [place] [address]Dr. Airam Tripathi IG # 0.03 10e3/ul Normal 0.00-0.03 [facility] Comment on above: Performed By: #### C BC ####[facility] Zvqqfcqwug650[address] [place], [place] [address]Dr. Airam Tripathi IG % 0.5 % Normal 0.0-0.5 [facility] Comment on above: Performed By: #### C BC ####[facility] Qteclvfwuu[address] [place] [address]DrKianna Tripathi LYMPH # 1.1 103/ul Critically low 1.2-3.8 [facility] Comment on above: Performed By: #### C BC ####[facility] Kfihoevagu[address] [place] [address]DrKianna Tripathi Lymphocytes/100 WBC (Bld) 18.2 % Critically low 20.5-60.0 [facility] Comment on above: Performed By: #### C BC ####[facility] Orirsgrzni8625[address] [place], [place] [address]DrKianna Tripathi MANUAL DIFF REQ NO Normal [facility] Comment on above: Performed By: #### C BC ####[facility] Nopdoymuiy383[address] [place], [place] [address]DrKianna Tripathi MCH (RBC) [Entitic mass] 29.6 pg Normal 26.7-34.0 [facility] Comment on above: Performed By: #### C BC ####[facility] Mwgjkvyijd016[address] [place], [place] [address]DrKianna Tripathi MCHC (RBC) [Mass/Vol] 31.0 g/dL Normal 29.9-35.2 [facility] Comment on above: Performed By: #### C BC ####[facility] Smykvmrdma115[address] [place], [place] [address]DrKianna Tripathi MCV (RBC) [Entitic vol] 95.5 fL Normal 81.0-99.0 [facility] Comment on above: Performed By: #### C BC ####[facility] Aocghdmyvj65[address] [place], [place] [address]DrKianna Tripathi MONO # 0.5 103/ul Normal 0.3-0.8 [facility] Comment on above: Performed By: #### C BC ####[facility] Qijfzcdqwo701[address] [place], [place] [address]DrKianna Tripathi Monocytes/100 WBC (Bld) 8.5 % Normal 1.7-12.0 [facility] Comment on above: Performed By: #### C BC ####[facility] Grmfwwcrgl[address] [place] [address]Dr. Airam Tripathi NEUT # 4.0 103/ul Normal 1.4-6.5 [facility] Comment on above: Performed By: #### C BC ####[facility] Kpsusghkwo5[address] [place] [address]Dr. Airam Tripathi Neutrophils/100 WBC (Bld) 68.4 % Normal 43.0-75.0 [facility] Comment on above: Performed By: #### C BC ####[facility] Pbuyuxfyed815398 [address] [place], [place] [address]Dr. Airam Tripathi Platelet mean volume (Bld) [Entitic vol] 10.1 fL Normal 9.5-13.5 [facility] Comment on above: Performed By: #### C BC ####[facility] Fxwstizytl2417[address] [place], [place] [address]Dr. Airam Tripathi PLT 304 103/ul Normal 150-450 [facility] Comment on above: Performed By: #### C BC ####[facility] Rfhaqwkoyt4664[address] [place], [place] [address]Dr. Airam Tripathi RBC 3.58 106/ul Critically low 4.20-5.40 [facility] Comment on above: Performed By: #### C BC ####[facility] Aofciohvqj518[address] [place], [place] [address]Dr. Airam Tripathi WBC 5.9 103/ul Normal 4.0-11.0 [facility] Comment on above: Performed By: #### C BC ####[facility] Yfwpfbgezv962[address] [place], [place] [address]Dr. Airam Tripathi MG MAMM RT DIAG FUon 022 MG MAMM RT DIAG FU Normal [facility] PROF 14(COMP METB)on 022 Albumin [Mass/Vol] 3.1 g/dL Critically low 3.4-5.0 Th [facility] Comment on above: Performed By: #### C MP ####[facility] Ogmuebvpxd18[address] [place] [phone]. Airam Tripathi Albumin/Globulin [Mass ratio] 1.0 {ratio} Normal [facility] Comment on above: Performed By: #### C MP ####[facility] Zlakhdblgj9[address] [place] [phone]. Airam Tripathi ALP [Catalytic activity/Vol] 143 U/L Critically high 46-116 [facility] Comment on above: Performed By: #### C MP ####[facility] Huvgygtkrs[address] [place] [address]Dr. Airam Tripathi ALT [Catalytic activity/Vol] 23 U/L Normal 14-59 [facility] Comment on above: Performed By: #### C MP ####[facility] Nbrlixuxrz884[address] [place], [place] [address]Dr. Selenaneil Deuce Anion gap [Moles/Vol] 13.2 mmol/L Normal [facility] Comment on above: Performed By: #### C MP ####[facility] Bmbcsscxws857[address] [place], [place] [address]Dr. Airam Deuce AST [Catalytic activity/Vol] 20 U/L Normal 15-37 [facility] Comment on above: Performed By: #### C MP ####[facility] Mxagvvzhuw190[address] [place], [place] [address]Dr. Airam Deuce Bilirubin [Mass/Vol] 0.3 mg/dL Normal 0.2-1.0 [facility] Comment on above: Performed By: #### C MP ####[facility] Dweromotrh9088[address] [place], [place] [address]Dr. Airam Deuce Calcium [Mass/Vol] 8.2 mg/dL Critically low 8.5-10.1 [facility] Comment on above: Performed By: #### C MP ####[facility] Nleqyysnet6726[address] [place], [place] [address]Dr. Airam Tripathi Chloride [Moles/Vol] 100 mmol/L Normal 98-107 [facility] Comment on above: Performed By: #### C MP ####[facility] Chebcsehti[address] [place] [address]Dr. Airam Tripathi CO2 [Moles/Vol] 26.0 mmol/L Normal 21.0-32.0 [facility] Comment on above: Performed By: #### C MP ####[facility] Ugxlidqvoz6[address] [place] [address]Dr. Airam Tripathi Creatinine [Mass/Vol] 1.52 mg/dL Critically high 0.55-1.02 [facility] Comment on above: Performed By: #### C MP ####[facility] Kysjnccwox159[address] [place], [place] [address]Dr. Airam Tripathi EGFR-AF [place] 42 mL/min/1.73m2 Critically low >=60 [facility] Comment on above: Performed By: #### C MP ####[facility] Vvgzhmonyy2655[address] [place], [place] [address]Dr. Airam Tripathi EGFR-NON AF [place] 35 mL/min/1.73m2 Critically low >=60 [facility] Comment on above: Performed By: #### C MP ####[facility] Drbmofqxru29999[address] [place], [place] [address]Dr. Airam Tripathi Globulin (S) [Mass/Vol] 3.2 g/dL Normal [facility] Comment on above: Performed By: #### C MP ####[facility] Azcqiqjitn5538[address] [place], [place] [address]Dr. Airam Tripathi Glucose [Mass/Vol] 84 mg/dL Normal 74-106 [facility] Comment on above: Performed By: #### C MP ####[facility] Yoxiiptnmi78[address] [place], [place] [address]Dr. Airam Tripathi Potassium [Moles/Vol] 4.2 mmol/L Normal 3.5-5.1 [facility] Comment on above: Performed By: #### C MP ####[facility] Alwffaodpj35[address] [place], [place] [address]Dr. Airam Tripathi Protein [Mass/Vol] 6.3 g/dL Critically low 6.4-8.2 Th [facility] Comment on above: Performed By: #### C MP ####[facility] Tbuziadhyp5837 [place] [id number]. Airam Tripathi Sodium [Moles/Vol] 135 mmol/L Critically low 136-145 Th [facility] Comment on above: Performed By: #### C MP ####[facility] Qytcjxxfwk5605 [place] [address]Dr. Airam Tripathi Urea nitrogen [Mass/Vol] 36.0 mg/dL Critically high 7.0-18.0 [facility] Comment on above: Performed By: #### C MP ####[facility] Nsuezbkbmg[address] [place] [address]Dr. Airam Tripathi Urea nitrogen/Creatinine [Mass ratio] 23.7 mg/mg Normal [facility] Comment on above: Performed By: #### C MP ####[facility] Zquqhrfuyt14[address] [place], [place] [address]Dr. Airam Tripathi US BREAST RIGHT LIMITEDon US BREAST RIGHT LIMITED Normal [facility] OSMOLALITYon 12-31-2021 Osmolality [Osmolality] 280 mosm/kg Normal 275-295 [facility] Comment on above: Performed By: #### O SMO ####[facility] Ebgcexehse[address] [place], [place] [address]Dr. Airam Tripathi CBC AUTO DIFFon 12-30-2021 BASO # 0.0 103/ul Normal 0.0-0.1 [facility] Comment on above: Performed By: #### C BC ####[facility] Z[address]xxxljlhh[address] [place] [address]Dr. Airam Tripathi Basophils/100 WBC (Bld) 0.5 % Normal 0.2-2.0 [facility] Comment on above: Performed By: #### C BC ####[facility] [address] [place] [address]Dr. Airam Tripathi EO # 0.3 103/ul Normal 0.0-0.7 [facility] Comment on above: Performed By: #### C BC ####[facility] Fhezxuvmiy626[address] [place], [place] [address]Dr. Airam Tripathi Eosinophils/100 WBC (Bld) 3.5 % Normal 0.9-7.0 [facility] Comment on above: Performed By: #### C BC ####[facility] Wbggjsxwjx36[address] [place] [address]Dr. Airam Tripathi Erythrocyte distribution width (RBC) [Ratio] 13.0 % Normal 11.0-15.0 [facility] Comment on above: Performed By: #### C BC ####[facility] Cacpaasojr22[address] [place], [place] [address]Dr. Airam Tripathi Hematocrit (Bld) [Volume fraction] 34.2 % Critically low 36.0-48.0 [facility] Comment on above: Performed By: #### C BC ####[facility] Xukvfkzafq174[address] [place], [place] [address]Dr. Airam Tripathi Hemoglobin (Bld) [Mass/Vol] 10.4 g/dL Critically low 12.0-16.0 [facility] Comment on above: Performed By: #### C BC ####[facility] Oqptvpgcxg135[address] [place], [place] [address]DrKianna Tripathi IG # 0.04 10e3/ul Critically high 0.00-0.03 [facility] Comment on above: Performed By: #### C BC ####[facility] Quefxeguen458398 [address] [place], [place] [address]DrKianna Tripathi IG % 0.5 % Normal 0.0-0.5 [facility] Comment on above: Performed By: #### C BC ####[facility] Cfpmjlgtbt0123[address] [place], [place] [address]DrKianna Tripathi LYMPH # 2.1 103/ul Normal 1.2-3.8 [facility] Comment on above: Performed By: #### C BC ####[facility] Tjhlrxlqhw1610[address] [place], [place] [address]DrKianna Tripathi Lymphocytes/100 WBC (Bld) 23.5 % Normal 20.5-60.0 [facility] Comment on above: Performed By: #### C BC ####[facility] Xdknwshcze254[address] [place], [place] [address]DrKianna Tripathi MANUAL DIFF REQ NO Normal [facility] Comment on above: Performed By: #### C BC ####[facility] Wchmatrkqe01[address] [place] [address]Dr. Airam Deuce MCH (RBC) [Entitic mass] 29.4 pg Normal 26.7-34.0 [facility] Comment on above: Performed By: #### C BC ####[facility] Tqhwtlgnpb6166 [place] [address]Dr. Airam Tripathi MCHC (RBC) [Mass/Vol] 30.4 g/dL Normal 29.9-35.2 [facility] Comment on above: Performed By: #### C BC ####[facility] Hoxcwicihn377[address] [place], [place] [address]DrKianna Tripathi MCV (RBC) [Entitic vol] 96.6 fL Normal 81.0-99.0 [facility] Comment on above: Performed By: #### C BC ####[facility] Xevwhhumgu6426[address] [place], [place] [address]DrKianna Tripathi MONO # 0.6 103/ul Normal 0.3-0.8 [facility] Comment on above: Performed By: #### C BC ####[facility] Hqzvjwgdbr9[address] [place], [place] [address]Dr. Airam Tripathi Monocytes/100 WBC (Bld) 6.4 % Normal 1.7-12.0 [facility] Comment on above: Performed By: #### C BC ####[facility] Tregsilixm969398 [address] [place], [place] [address]DrKianna Tripathi NEUT # 5.8 103/ul Normal 1.4-6.5 [facility] Comment on above: Performed By: #### C BC ####[facility] Abltimdlsy6217[address] [place], [place] [address]DrKianna Tripathi Neutrophils/100 WBC (Bld) 65.6 % Normal 43.0-75.0 [facility] Comment on above: Performed By: #### C BC ####[facility] Opwxkbkmiy416[address] [place], [place] [address]DrKianna Tripathi Platelet mean volume (Bld) [Entitic vol] 9.2 fL Critically low 9.5-13.5 [facility] Comment on above: Performed By: #### C BC ####[facility] Hvtmmjnbir28[address] [place] [address]Dr. Airam Tripathi PLT 338 103/ul Normal 150-450 [facility] Comment on above: Performed By: #### C BC ####[facility] Tdgdrvigmr9714 [place] [address]Dr. Airam Tripathi RBC 3.54 106/ul Critically low 4.20-5.40 [facility] Comment on above: Performed By: #### C BC ####[facility] Prxqxbojnk9638 [place] [address]Dr. Airam Tripathi WBC 8.9 103/ul Normal 4.0-11.0 [facility] Comment on above: Performed By: #### C BC ####[facility] Rzncdffnbl4793 [place] [address]Dr. Airam Tripathi MG MAMM SCREEN 3D GUMARO CADon 12-30-2021 MG MAMM SCREEN 3D GUMARO CAD Normal [facility] PROF 14(COMP METB)on 022 Albumin [Mass/Vol] 3.6 g/dL Normal 3.4-5.0 [facility] Comment on above: Performed By: #### C MP ####[facility] Whcbtkhpto8825[address] [place], [place] [address]Dr. Airam Tripathi Albumin/Globulin [Mass ratio] 1.1 {ratio} Normal [facility] Comment on above: Performed By: #### C MP ####[facility] Uniwgftean[address] [place] [address]Dr. Airam Deuce ALP [Catalytic activity/Vol] 117 U/L Critically high 46-116 [facility] Comment on above: Performed By: #### C MP ####[facility] Ijsattkncl4274 [place] [address]Dr. Airam Deuce ALT [Catalytic activity/Vol] 26 U/L Normal 14-59 [facility] Comment on above: Performed By: #### C MP ####[facility] Pnbmozsklo3355 [place] [address]Dr. Airam Tripathi Anion gap [Moles/Vol] 11.2 mmol/L Normal Th e [facility] Comment on above: Performed By: #### C MP ####[facility] Yrygxqbmtn2624 [place] [address]Dr. Airam Tripathi AST [Catalytic activity/Vol] 29 U/L Normal 15-37 [facility] Comment on above: Performed By: #### C MP ####[facility] Qihddqworh5336 [place] [address]Dr. Airam Tripathi Bilirubin [Mass/Vol] 0.3 mg/dL Normal 0.2-1.0 [facility] Comment on above: Performed By: #### C MP ####[facility] Gatlkhjnsj54[address] [place] [address]Dr. Selenaneil Tripathi Calcium [Mass/Vol] 9.1 mg/dL Normal 8.5-10.1 [facility] Comment on above: Performed By: #### C MP ####[facility] Qhaktgprlb977[address] [place], [place] [address]Dr. Airam Deuce Chloride [Moles/Vol] 101 mmol/L Normal 98-107 [facility] Comment on above: Performed By: #### C MP ####[facility] Hwfcslpcjn3425 [place] [address]Dr. Airam Deuce CO2 [Moles/Vol] 26.8 mmol/L Normal 21.0-32.0 [facility] Comment on above: Performed By: #### C MP ####[facility] Muccdlhhjz12[address] [place] [address]Dr. Selenaneil Deuce Creatinine [Mass/Vol] 1.56 mg/dL Critically high 0.55-1.02 [facility] Comment on above: Performed By: #### C MP ####[facility] Iebigtsyxt4[address] [place] [address]Dr. Airam Deuce EGFR-AF BARBADIAN 41 mL/min/1.73m2 Critically low >=60 [facility] Comment on above: Performed By: #### C MP ####[facility] Ljypjbnwit088[address] [place], [place] [address]Dr. Airam Tripathi EGFR-NON AF BARBADIAN 34 mL/min/1.73m2 Critically low >=60 [facility] Comment on above: Performed By: #### C MP ####[facility] Dzlpgbspal12[address] [place] [address]Dr. Airam Tripathi Globulin (S) [Mass/Vol] 3.3 g/dL Normal [facility] Comment on above: Performed By: #### C MP ####[facility] Crjvetxwdz1299 [place] [address]Dr. Airam Tripathi Glucose [Mass/Vol] 84 mg/dL Normal 74-106 [facility] Comment on above: Performed By: #### C MP ####[facility] Zynrvcjcye224698 [address] [place], [place] [address]Dr. Airam Tripathi Potassium [Moles/Vol] 5.0 mmol/L Normal 3.5-5.1 [facility] Comment on above: Performed By: #### C MP ####[facility] Bfgkcztyta8200[address] [place], [place] [address]Dr. Airam Tripathi Protein [Mass/Vol] 6.9 g/dL Normal 6.4-8.2 [facility] Comment on above: Performed By: #### C MP ####[facility] Pjmmvqiufn6517[address] [place], [place] [address]Dr. Airam Tripathi Sodium [Moles/Vol] 134 mmol/L Critically low 136-145 Th [facility] Comment on above: Performed By: #### C MP ####[facility] Kqwjkjzvmb249198 [address] [place], [place] [address]Dr. Airam Tripathi Urea nitrogen [Mass/Vol] 28.0 mg/dL Critically high 7.0-18.0 [facility] Comment on above: Performed By: #### C MP ####[facility] Dbfvdikcmr1248[address] [place], [place] [address]Dr. Airam Tripathi Urea nitrogen/Creatinine [Mass ratio] 17.9 mg/mg Normal [facility] Comment on above: Performed By: #### C MP ####[facility] Hpstvcfkuv6428[address] [place], [place] [address]Dr. Airam Tripathi OSMOLALITYon 12-24-2021 Osmolality [Osmolality] 287 mosm/kg Normal 275-295 [facility] Comment on above: Performed By: #### O SMO ####[facility] Tgnesszcvz2251 [place] [address]Dr. Airam Tripathi CBC AUTO DIFFon 12-22-2021 BASO # 0.0 103/ul Normal 0.0-0.1 [facility] Comment on above: Performed By: #### C BC ####[facility] Qfrbxvojzf944398 [address] [place], [place] [address]Dr. Airam Tripathi Basophils/100 WBC (Bld) 0.5 % Normal 0.2-2.0 [facility] Comment on above: Performed By: #### C BC ####[facility] Octtohaxwo0627[address] [place], [place] [address]Dr. Airam Tripathi EO # 0.4 103/ul Normal 0.0-0.7 [facility] Comment on above: Performed By: #### C BC ####[facility] Dijgvjchss029[address] [place], [place] [address]Dr. Airam Tripathi Eosinophils/100 WBC (Bld) 6.4 % Normal 0.9-7.0 [facility] Comment on above: Performed By: #### C BC ####[facility] Ewwybdpsrz3227[address] [place], [place] [address]Dr. Airam Tripathi Erythrocyte distribution width (RBC) [Ratio] 13.2 % Normal 11.0-15.0 [facility] Comment on above: Performed By: #### C BC ####[facility] Czwzqialwo512[address] [place], [place] [address]Dr. Airam Tripathi Hematocrit (Bld) [Volume fraction] 32.2 % Critically low 36.0-48.0 [facility] Comment on above: Performed By: #### C BC ####[facility] Eckleiolnt40[address] [place], [place] [address]Dr. Airam Tripathi Hemoglobin (Bld) [Mass/Vol] 10.1 g/dL Critically low 12.0-16.0 [facility] Comment on above: Performed By: #### C BC ####[facility] Cocwqxdtdg44[address] [place] [id number]. Selenaneil Tripathi IG # 0.03 10e3/ul Normal 0.00-0.03 [facility] Comment on above: Performed By: #### C BC ####[facility] Acbzwiuwhu1048 [place] [id number]. Airam Tripathi IG % 0.5 % Normal 0.0-0.5 [facility] Comment on above: Performed By: #### C BC ####[facility] Kgvusicdre5[address] [place] [address]Dr. Airam Tripathi LYMPH # 1.3 103/ul Normal 1.2-3.8 [facility] Comment on above: Performed By: #### C BC ####[facility] Wzkxvszfkv7833 [place] [address]Dr. Airam Tripathi Lymphocytes/100 WBC (Bld) 20.5 % Normal 20.5-60.0 [facility] Comment on above: Performed By: #### C BC ####[facility] Lcbgnfbtkt[address] [place], [place] [address]Dr. Airam Tripathi MANUAL DIFF REQ NO Normal [facility] Comment on above: Performed By: #### C BC ####[facility] Gsouffjpbo9035 [place] [address]Dr. Selenaneil Tripathi MCH (RBC) [Entitic mass] 30.1 pg Normal 26.7-34.0 [facility] Comment on above: Performed By: #### C BC ####[facility] Fezatmmizs3[address] [place] [address]Dr. Selenaneil Tripathi MCHC (RBC) [Mass/Vol] 31.4 g/dL Normal 29.9-35.2 [facility] Comment on above: Performed By: #### C BC ####[facility] Izawtqrmfh2614 [place] [address]Dr. Airam Tripathi MCV (RBC) [Entitic vol] 95.8 fL Normal 81.0-99.0 [facility] Comment on above: Performed By: #### C BC ####[facility] Pvozdzkpfy5314 [place] [id number]. Airam Tripathi MONO # 0.5 103/ul Normal 0.3-0.8 [facility] Comment on above: Performed By: #### C BC ####[facility] Nbyrbznwhj5977 [place] [phone]. Airam Tripathi Monocytes/100 WBC (Bld) 7.4 % Normal 1.7-12.0 [facility] Comment on above: Performed By: #### C BC ####[facility] Kgcercmnnj8334 [place] [phone]. Airam Tripathi NEUT # 3.9 103/ul Normal 1.4-6.5 [facility] Comment on above: Performed By: #### C BC ####[facility] Hhmxwlslup8588 [place] [phone]. Airam Tripathi Neutrophils/100 WBC (Bld) 64.7 % Normal 43.0-75.0 [facility] Comment on above: Performed By: #### C BC ####[facility] Ldnopsvbee8267 [place] [phone]. Airam Tripathi Platelet mean volume (Bld) [Entitic vol] 9.2 fL Critically low 9.5-13.5 [facility] Comment on above: Performed By: #### C BC ####[facility] Hdfuljjmvn9617 [place] [id number]. Airam Tripathi PLT 309 103/ul Normal 150-450 [facility] Comment on above: Performed By: #### C BC ####[facility] Mngcgdlyvt6269 [place] [id number]. Airam Tripathi RBC 3.36 106/ul Critically low 4.20-5.40 [facility] Comment on above: Performed By: #### C BC ####[facility] Vtxynqmqtt7429 [place] [phone]. Airam Tripathi WBC 6.1 103/ul Normal 4.0-11.0 [facility] Comment on above: Performed By: #### C BC ####[facility] Zqkgirnxen7398 [place] [phone]. Airam Tripathi PROF 14(COMP METB)on 022 Albumin [Mass/Vol] 3.2 g/dL Critically low 3.4-5.0 Th [facility] Comment on above: Performed By: #### C MP ####[facility] Ijfodltwcs6804 [place] [address]Dr. Airam Tripathi Albumin/Globulin [Mass ratio] 1.1 {ratio} Normal [facility] Comment on above: Performed By: #### C MP ####[facility] Xdjzbakkuq2819 [place] [address]Dr. Airam Tripathi ALP [Catalytic activity/Vol] 123 U/L Critically high 46-116 [facility] Comment on above: Performed By: #### C MP ####[facility] Gpzfgdsdrk85[address] [place], [place] [address]Dr. Airam Tripathi ALT [Catalytic activity/Vol] 26 U/L Normal 14-59 [facility] Comment on above: Performed By: #### C MP ####[facility] Oowzhvearp4880[address] [place], [place] [address]Dr. Airam Tripathi Anion gap [Moles/Vol] 14.5 mmol/L Normal Th [facility] Comment on above: Performed By: #### C MP ####[facility] Ekqiazchpr844[address] [place], [place] [address]Dr. Airam Tripathi AST [Catalytic activity/Vol] 23 U/L Normal 15-37 [facility] Comment on above: Performed By: #### C MP ####[facility] Wbtileyhnb1837[address] [place], [place] [address]Dr. Airam Tripathi Bilirubin [Mass/Vol] 0.3 mg/dL Normal 0.2-1.0 [facility] Comment on above: Performed By: #### C MP ####[facility] Hqhjrcbseu214[address] [place], [place] [address]Dr. Airam Tripathi Calcium [Mass/Vol] 8.2 mg/dL Critically low 8.5-10.1 Th [facility] Comment on above: Performed By: #### C MP ####[facility] Vxqyzrbtwm0382 [place] [address]Dr. Airam Tripathi Chloride [Moles/Vol] 102 mmol/L Normal 98-107 [facility] Comment on above: Performed By: #### C MP ####[facility] Svhfdfbaok6874 [place] [address]Dr. Airam Tripathi CO2 [Moles/Vol] 23.2 mmol/L Normal 21.0-32.0 [facility] Comment on above: Performed By: #### C MP ####[facility] Erovcfobht319[address] [place], [place] [address]Dr. Airam Tripathi Creatinine [Mass/Vol] 1.98 mg/dL Critically high 0.55-1.02 [facility] Comment on above: Performed By: #### C MP ####[facility] Klxzzcvxmw825[address] [place], [place] [address]Dr. Airam Deuce EGFR-AF BARBADIAN 31 mL/min/1.73m2 Critically low >=60 [facility] Comment on above: Performed By: #### C MP ####[facility] Jreegrwepq51989[address] [place], [place] [address]Dr. Airam Tripathi EGFR-NON AF [place]IAN 26 mL/min/1.73m2 Critically low >=60 [facility] Comment on above: Performed By: #### C MP ####[facility] Ophpatzaun0770[address] [place], [place] [address]Dr. Airam Deuce Globulin (S) [Mass/Vol] 3.0 g/dL Normal [facility] Comment on above: Performed By: #### C MP ####[facility] Ytxjgoskbq81989[address] [place], [place] [address]Dr. Airam Deuce Glucose [Mass/Vol] 131 mg/dL Critically high 74-106 T [facility] Comment on above: Performed By: #### C MP ####[facility] Qjswakialu1048[address] [place], [place] [address]Dr. iAram Deuce Potassium [Moles/Vol] 4.7 mmol/L Normal 3.5-5.1 [facility] Comment on above: Performed By: #### C MP ####[facility] Xinviaoygy6533[address] [place], [place] [address]Dr. Airam Tripathi Protein [Mass/Vol] 6.2 g/dL Critically low 6.4-8.2 Th [facility] Comment on above: Performed By: #### C MP ####[facility] Bbrduoqlgj239[address] [place], [place] [address]Dr. Airam Tripathi Sodium [Moles/Vol] 135 mmol/L Critically low 136-145 Th [facility] Comment on above: Performed By: #### C MP ####[facility] Pnwosmgghf4940[address] [place], [place] [address]Dr. Airam Tripathi Urea nitrogen [Mass/Vol] 37.0 mg/dL Critically high 7.0-18.0 [facility] Comment on above: Performed By: #### C MP ####[facility] Waxectcdbn195[address] [place], [place] [address]Dr. Airam Deuce Urea nitrogen/Creatinine [Mass ratio] 18.7 mg/mg Normal [facility] Comment on above: Performed By: #### C MP ####[facility] Dksegpcfdz7916[address] [place], [place] [address]Dr. Airam Tripathi OSMOLALITYon 12-18-2021 Osmolality [Osmolality] 271 mosm/kg Critically low 275-295 [facility] Comment on above: Performed By: #### O SMO ####[facility] Afezszhryd664[address] [place], [place] [address]Dr. Airam Tripathi CBC AUTO DIFFon 12-16-2021 BASO # 0.0 103/ul Normal 0.0-0.1 [facility] Comment on above: Performed By: #### C BC ####[facility] Igwvlrkdxk377698 [address] [place], [place] [address]Dr. Airam Deuce Basophils/100 WBC (Bld) 0.6 % Normal 0.2-2.0 [facility] Comment on above: Performed By: #### C BC ####[facility] Bxdpssckxo984[address] [place], [place] [address]Dr. Airam Deuce EO # 0.1 103/ul Normal 0.0-0.7 [facility] Comment on above: Performed By: #### C BC ####[facility] Mfrbasdicd7172 [place] [id number]. Airam Tripathi Eosinophils/100 WBC (Bld) 2.1 % Normal 0.9-7.0 [facility] Comment on above: Performed By: #### C BC ####[facility] Italydecba2522 [place] [phone]. Airam Tripathi Erythrocyte distribution width (RBC) [Ratio] 13.1 % Normal 11.0-15.0 [facility] Comment on above: Performed By: #### C BC ####[facility] Qhiaxhxqnw[address] [place], [place] [address]Dr. Airam Tripathi Hematocrit (Bld) [Volume fraction] 33.8 % Critically low 36.0-48.0 [facility] Comment on above: Performed By: #### C BC ####[facility] Nkxuosqvke6790[address] [place], [place] [address]Dr. Airam Tripathi Hemoglobin (Bld) [Mass/Vol] 10.7 g/dL Critically low 12.0-16.0 [facility] Comment on above: Performed By: #### C BC ####[facility] Zewjclsjji8724[address] [place], [place] [address]Dr. Airam Tripathi IG # 0.02 10e3/ul Normal 0.00-0.03 [facility] Comment on above: Performed By: #### C BC ####[facility] Lmfejtmtct6613[address] [place], [place] [address]Dr. Airam Tripathi IG % 0.3 % Normal 0.0-0.5 [facility] Comment on above: Performed By: #### C BC ####[facility] Lmoxqmsopa264[address] [place], [place] [address]Dr. Airam Tripathi LYMPH # 1.2 103/ul Normal 1.2-3.8 [facility] Comment on above: Performed By: #### C BC ####[facility] Irilwzzqmn640[address] [place], [place] [address]Dr. Airam Tripathi Lymphocytes/100 WBC (Bld) 17.3 % Critically low 20.5-60.0 [facility] Comment on above: Performed By: #### C BC ####[facility] Ocfxscmfrn34[address] [place] [address]Dr. Airam Tripathi MANUAL DIFF REQ NO Normal [facility] Comment on above: Performed By: #### C BC ####[facility] Kyebrlulyo8414 [place] [address]Dr. Airam Tripathi MCH (RBC) [Entitic mass] 30.2 pg Normal 26.7-34.0 [facility] Comment on above: Performed By: #### C BC ####[facility] Igbakftnyo611[address] [place], [place] [address]Dr. Airam Tripathi MCHC (RBC) [Mass/Vol] 31.7 g/dL Normal 29.9-35.2 [facility] Comment on above: Performed By: #### C BC ####[facility] Qzsurwhyeg478[address] [place], [place] [address]Dr. Airam Tripathi MCV (RBC) [Entitic vol] 95.5 fL Normal 81.0-99.0 [facility] Comment on above: Performed By: #### C BC ####[facility] Zovzuavtay64[address] [place], [place] [address]Dr. Airam Tripathi MONO # 0.5 103/ul Normal 0.3-0.8 [facility] Comment on above: Performed By: #### C BC ####[facility] Ffhndbvjiy440[address] [place], [place] [address]Dr. Airam Deuce Monocytes/100 WBC (Bld) 6.8 % Normal 1.7-12.0 [facility] Comment on above: Performed By: #### C BC ####[facility] Qqjqocrmxr203[address] [place], [place] [address]Dr. Airam Tripathi NEUT # 4.9 103/ul Normal 1.4-6.5 [facility] Comment on above: Performed By: #### C BC ####[facility] Nxdcxwvubd560[address] [place], [place] [address]Dr. Airam Tripathi Neutrophils/100 WBC (Bld) 72.9 % Normal 43.0-75.0 [facility] Comment on above: Performed By: #### C BC ####[facility] Sruuqcdysx9087 [place] [phone]. Airam Tripathi Platelet mean volume (Bld) [Entitic vol] 9.0 fL Critically low 9.5-13.5 [facility] Comment on above: Performed By: #### C BC ####[facility] Lxnykiofaj8304 [place] [phone]. Airam Tripathi PLT 297 103/ul Normal 150-450 [facility] Comment on above: Performed By: #### C BC ####[facility] Jopaaqiwnx[address] [place] [address]Dr. Airam Tripathi RBC 3.54 106/ul Critically low 4.20-5.40 [facility] Comment on above: Performed By: #### C BC ####[facility] Trinvcndag4865 [place] [address]Dr. Airam Tripathi WBC 6.8 103/ul Normal 4.0-11.0 [facility] Comment on above: Performed By: #### C BC ####[facility] Aexqcmaqyb4103 [place] [address]Dr. Airam Tripathi PROF 14(COMP METB)on 022 Albumin [Mass/Vol] 3.2 g/dL Critically low 3.4-5.0 [facility] Comment on above: Performed By: #### C MP ####[facility] Nlyapchkjo23[address] [place] [address]Dr. Airam Tripathi Albumin/Globulin [Mass ratio] 1.0 {ratio} Normal [facility] Comment on above: Performed By: #### C MP ####[facility] Irxulwczyd8284 [place] [address]Dr. Airam Tripathi ALP [Catalytic activity/Vol] 109 U/L Normal 46-116 [facility] Comment on above: Performed By: #### C MP ####[facility] Himxuenkpo54[address] [place] [id number]. Airam Tripathi ALT [Catalytic activity/Vol] 23 U/L Normal 14-59 [facility] Comment on above: Performed By: #### C MP ####[facility] Y[address]fgqurne[address] [place] [phone]. Airam Tripathi Anion gap [Moles/Vol] 11.6 mmol/L Normal Th e [facility] Comment on above: Performed By: #### C MP ####[facility] Exftneeosi5302 [place], [place] [address]Nh. Airam Tripathi AST [Catalytic activity/Vol] 24 U/L Normal 15-37 [facility] Comment on above: Performed By: #### C MP ####[facility] Etweaivmns9[address] [place] [id number]. Airam Tripathi Bilirubin [Mass/Vol] 0.2 mg/dL Normal 0.2-1.0 [facility] Comment on above: Performed By: #### C MP ####[facility] Mofpduluus34[address] [place] [id number]. Airam Tripathi Calcium [Mass/Vol] 8.6 mg/dL Normal 8.5-10.1 [facility] Comment on above: Performed By: #### C MP ####[facility] Xzbgvhplmy4859 [place] [phone]. Airam Triptahi Chloride [Moles/Vol] 100 mmol/L Normal 98-107 [facility] Comment on above: Performed By: #### C MP ####[facility] Sxvlmlwwvd8934 [place] [phone]. Airam Tripathi CO2 [Moles/Vol] 24.7 mmol/L Normal 21.0-32.0 [facility] Comment on above: Performed By: #### C MP ####[facility] Mhuywncxec1158 [place] [phone]. Airam Tripathi Creatinine [Mass/Vol] 1.11 mg/dL Critically high 0.55-1.02 [facility] Comment on above: Performed By: #### C MP ####[facility] Wvbiqteahc6[address] [place] [phone]. Airam Tripathi EGFR-AF BARBADIAN >60 Normal >=60 [facility] Comment on above: Performed By: #### C MP ####[facility] Mizvckzueh9[address] [place] [address]Dr. Airam Tripathi EGFR-NON AF BARBADIAN 50 mL/min/1.73m2 Critically low >=60 [facility] Comment on above: Performed By: #### C MP ####[facility] Thsulpmruv37[address] [place] [address]Dr. Airam Tripathi Globulin (S) [Mass/Vol] 3.1 g/dL Normal [facility] Comment on above: Performed By: #### C MP ####[facility] Dhlhxpaanf6[address] [place] [address]Dr. Airam Tripathi Glucose [Mass/Vol] 79 mg/dL Normal 74-106 [facility] Comment on above: Performed By: #### C MP ####[facility] Acluzrnp[address] [place], [place] [address]Dr. Airam Tripathi Potassium [Moles/Vol] 5.3 mmol/L Critically high 3.5-5.1 [facility] Comment on above: Performed By: #### C MP ####[facility] Vccnreqbcp[address] [place], [place] [address]Dr. Airam Tripathi Protein [Mass/Vol] 6.3 g/dL Critically low 6.4-8.2 [facility] Comment on above: Performed By: #### C MP ####[facility] Obdvmekfip[address] [place], [place] [address]Dr. Airam Tripathi Sodium [Moles/Vol] 131 mmol/L Critically low 136-145 Th [facility] Comment on above: Performed By: #### C MP ####[facility] Wtwjaophrv[address] [place], [place] [address]Dr. Airam Tripathi Urea nitrogen [Mass/Vol] 20.0 mg/dL Critically high 7.0-18.0 [facility] Comment on above: Performed By: #### C MP ####[facility] Guhfhouyza[address] [place], [place] [address]Dr. Airam Tripathi Urea nitrogen/Creatinine [Mass ratio] 18.0 mg/mg Normal [facility] Comment on above: Performed By: #### C MP ####[facility] Iqyqasvuws[address] [place] [address]Dr. Airam Tripathi OSMOLALITYon 12-09-2021 Osmolality [Osmolality] 279 mosm/kg Normal 275-295 [facility] Comment on above: Performed By: #### O SMO ####[facility] Bqseestazi180[address] [place], [place] [address]Dr. Airam Tripathi CBC AUTO DIFFon 12-07-2021 BASO # 0.0 103/ul Normal 0.0-0.1 [facility] Comment on above: Performed By: #### C BC ####[facility] Vkjdlldnpp[address] [place], [place] [address]Dr. Selenaneil Tripathi Basophils/100 WBC (Bld) 0.5 % Normal 0.2-2.0 [facility] Comment on above: Performed By: #### C BC ####[facility] Ndhulfwsdy[address] [place], [place] [address]Dr. Airam Tripathi EO # 0.4 103/ul Normal 0.0-0.7 [facility] Comment on above: Performed By: #### C BC ####[facility] Vczurkbmdd[address] [place], [place] [address]Dr. Airam Tripathi Eosinophils/100 WBC (Bld) 6.3 % Normal 0.9-7.0 [facility] Comment on above: Performed By: #### C BC ####[facility] Aebtxywcfr8[address] [place], [place] [address]Dr. Airam Tripathi Erythrocyte distribution width (RBC) [Ratio] 13.3 % Normal 11.0-15.0 [facility] Comment on above: Performed By: #### C BC ####[facility] Uyamksenha[address] [place], [place] [address]Dr. Airam Tripathi Hematocrit (Bld) [Volume fraction] 29.5 % Critically low 36.0-48.0 [facility] Comment on above: Performed By: #### C BC ####[facility] Fcqjuytxeo[address] [place], [place] [address]Dr. Airam Tripatih Hemoglobin (Bld) [Mass/Vol] 9.1 g/dL Critically low 12.0-16.0 [facility] Comment on above: Performed By: #### C BC ####[facility] Mpoefncony[address] [place] [id number]. Airam Tripathi IG # 0.04 10e3/ul Critically high 0.00-0.03 [facility] Comment on above: Performed By: #### C BC ####[facility] Ojotqitwds5714 [place] [phone]. Airam Tripathi IG % 0.7 % Critically high 0.0-0.5 [facility] Comment on above: Performed By: #### C BC ####[facility] Jbzzubqhav44[address] [place] [address]Dr. Airam Tripathi LYMPH # 1.3 103/ul Normal 1.2-3.8 [facility] Comment on above: Performed By: #### C BC ####[facility] Ohgnxwmkyk9646 [place] [address]Dr. Airam Tripathi Lymphocytes/100 WBC (Bld) 20.9 % Normal 20.5-60.0 [facility] Comment on above: Performed By: #### C BC ####[facility] Ikozkxmmpg22[address] [place] [address]Dr. Airam Tripathi MANUAL DIFF REQ NO Normal [facility] Comment on above: Performed By: #### C BC ####[facility] Samfittvbu[address] [place], [place] [address]Dr. Airam Tripathi MCH (RBC) [Entitic mass] 30.1 pg Normal 26.7-34.0 [facility] Comment on above: Performed By: #### C BC ####[facility] Kwdbetyqli[address] [place], [place] [address]Dr. Airam Tripathi MCHC (RBC) [Mass/Vol] 30.8 g/dL Normal 29.9-35.2 [facility] Comment on above: Performed By: #### C BC ####[facility] Toaoabjnim[address] [place], [place] [address]Dr. Airam Tripathi MCV (RBC) [Entitic vol] 97.7 fL Normal 81.0-99.0 [facility] Comment on above: Performed By: #### C BC ####[facility] Ybwehwgbjc9431 [place] [phone]. Airam Tripathi MONO # 0.4 103/ul Normal 0.3-0.8 [facility] Comment on above: Performed By: #### C BC ####[facility] Gnxbmomypn9227 [place] [phone]. Airam Tripathi Monocytes/100 WBC (Bld) 6.6 % Normal 1.7-12.0 [facility] Comment on above: Performed By: #### C BC ####[facility] Kmmdyragmf8955 [place] [phone]. Airam Tripathi NEUT # 4.0 103/ul Normal 1.4-6.5 [facility] Comment on above: Performed By: #### C BC ####[facility] Tkqekamvju[address] [place], [place] [address]Dr. Airam Tripathi Neutrophils/100 WBC (Bld) 65.0 % Normal 43.0-75.0 [facility] Comment on above: Performed By: #### C BC ####[facility] Irkjjrstwx4[address] [place] [address]Dr. Airam Tripathi Platelet mean volume (Bld) [Entitic vol] 9.4 fL Critically low 9.5-13.5 [facility] Comment on above: Performed By: #### C BC ####[facility] Hquohigspl[address] [place], [place] [address]Dr. Airam Tripathi PLT 224 103/ul Normal 150-450 [facility] Comment on above: Performed By: #### C BC ####[facility] Xoldncztun[address] [place], [place] [address]Dr. Airam Tripathi RBC 3.02 106/ul Critically low 4.20-5.40 [facility] Comment on above: Performed By: #### C BC ####[facility] Ulpkaourur[address] [place] [address]Dr. Airam Tripathi WBC 6.1 103/ul Normal 4.0-11.0 [facility] Comment on above: Performed By: #### C BC ####[facility] Sp[address]ikirxwo[address] [place] [address]Dr. Airam Tripathi PROF 14(COMP METB)on 022 Albumin [Mass/Vol] 2.8 g/dL Critically low 3.4-5.0 [facility] Comment on above: Performed By: #### C MP ####[facility] Cghuamulca4[address] [place] [address]Dr. Airam Tripathi Albumin/Globulin [Mass ratio] 1.1 {ratio} Normal [facility] Comment on above: Performed By: #### C MP ####[facility] Vhubkskygj[address] [place], [place] [address]Dr. Airam Tripathi ALP [Catalytic activity/Vol] 116 U/L Normal 46-116 [facility] Comment on above: Performed By: #### C MP ####[facility] Miqiyftkwf[address] [place], [place] [address]Dr. Airam Tripathi ALT [Catalytic activity/Vol] 23 U/L Normal 14-59 [facility] Comment on above: Performed By: #### C MP ####[facility] Rzeruatrsr[address] [place], [place] [address]Dr. Airam Tripathi Anion gap [Moles/Vol] 12.1 mmol/L Normal Th [facility] Comment on above: Performed By: #### C MP ####[facility] Uhfwvyqxbv[address] [place], [place] [address]Dr. Airam Tripathi AST [Catalytic activity/Vol] 23 U/L Normal 15-37 [facility] Comment on above: Performed By: #### C MP ####[facility] Utyvtfhncm[address] [place], [place] [address]Dr. Airam Tripathi Bilirubin [Mass/Vol] 0.2 mg/dL Normal 0.2-1.0 [facility] Comment on above: Performed By: #### C MP ####[facility] Qbsapidbdd[address] [place], [place] [address]Dr. Airam Tripathi Calcium [Mass/Vol] 8.1 mg/dL Critically low 8.5-10.1 [facility] Comment on above: Performed By: #### C MP ####[facility] Jclqdlezba7980 [place] [phone]. Airam Tripathi Chloride [Moles/Vol] 105 mmol/L Normal 98-107 [facility] Comment on above: Performed By: #### C MP ####[facility] Nchynwcwdl0097 [place] [phone]. Airam Tripathi CO2 [Moles/Vol] 22.1 mmol/L Normal 21.0-32.0 [facility] Comment on above: Performed By: #### C MP ####[facility] Eaeaeqggpz7779 [place] [phone]. Airam Tripathi Creatinine [Mass/Vol] 1.06 mg/dL Critically high 0.55-1.02 [facility] Comment on above: Performed By: #### C MP ####[facility] F[address]obckyfr[address] [place] [address]Dr. Airam Tripathi EGFR-AF BARBADIAN >60 Normal >=60 [facility] Comment on above: Performed By: #### C MP ####[facility] Dbxkhuttyk9[address] [place] [address]Dr. Airam Tripathi EGFR-NON AF BARBADIAN 53 mL/min/1.73m2 Critically low >=60 [facility] Comment on above: Performed By: #### C MP ####[facility] Ilkfntyevy5[address] [place] [address]Dr. Airam Tripathi Globulin (S) [Mass/Vol] 2.6 g/dL Normal [facility] Comment on above: Performed By: #### C MP ####[facility] Xvlyyhlvqp6456 [place] [address]Dr. Airam Tripathi Glucose [Mass/Vol] 109 mg/dL Critically high 74-106 T [facility] Comment on above: Performed By: #### C MP ####[facility] [address]brvheiq[address] [place] [address]Dr. Airam Tripathi Potassium [Moles/Vol] 4.2 mmol/L Normal 3.5-5.1 [facility] Comment on above: Performed By: #### C MP ####[facility] Ckmuggazys7236 [place] [phone]. Airam Tripathi Protein [Mass/Vol] 5.4 g/dL Critically low 6.4-8.2 Th [facility] Comment on above: Performed By: #### C MP ####[facility] Kujsnlwfmm2000 [place] [phone]. Airam Tripathi Sodium [Moles/Vol] 135 mmol/L Critically low 136-145 Th [facility] Comment on above: Performed By: #### C MP ####[facility] Wnmpslgoto0424 [place] [phone]. Airam Tripathi Urea nitrogen [Mass/Vol] 15.0 mg/dL Normal 7.0-18.0 [facility] Comment on above: Performed By: #### C MP ####[facility] Horgkoxasm[address] [place] [address]Dr. Airam Tripathi Urea nitrogen/Creatinine [Mass ratio] 14.2 mg/mg Normal [facility] Comment on above: Performed By: #### C MP ####[facility] Lhdbdzzcay6903 [place] [phone]. Airam Tripathi Operative Reporton Operative Report MR#: [id number] S [facility] Pt. Name: Mabel Moser Room #: [...] subscapularis. 3. Right shoulder proximal biceps tenotomy. DIRECTOR [employer] SALES: Alex Serra M.D. ANESTHESIA: General. INDICATIONS: The [...] Reza M.D. Date Trans: 08/19/2021 11:37 A/carter [id number] cc: Angle Santana M.D. [address], [facility] [address] Normal [facility] POC GLUCOSE LABon 08-19-2021 Glucose [Mass/Vol] 77 mg/dL Normal 70-100 [facility] Comment on above: Performed By: #### 8 [id number] #### [facility] [address] 04-05-2021 CNPN Telephone (ANDREW) -- MABEL MOSER ([id number]) 1960 F Date Time Provider Department 04/05/21 YEVGENIY FORD During your visit today, we recorded the following information about you: Chana Gallegos [facility] 04/05/2021 7:57 AM Signed Records faxed to the cancer center at [facility]. Patient to follow with Dr. Liu. Release [...] by CATHRYN CARTER CHANA L on 04/05/21 [facility] OBSOLETEon 01-11-2021 OBSOLETE Refill (HEMASA) -- MABEL MOSER ([id number]) 1960 F Date Time Provider Department 01/11/21 [...] kidney disease) stage 3, GFR 30-59 ml/min ([facility]) [N18.30] Order(s):cyanocobalamin 1,000 mcg/mLINJECT 1 ML INTRAMUSCULARLY [...] Status:Closed by YEVGENIY FORD on 01/12/21 Normal [facility] Vital Signs Date Time Vital Sign Value Performing Clinician Facility 07-03-2023 12:00-0500 Body temperature 97.9 [degF] MD Angle Santana Work Phone: [facility] 07-03-2023 12:00-0500 Diastolic blood pressure 71 mm[Hg] MD Angle Santana Work Phone: [facility] 07-03-2023 12:00-0500 Heart rate 68 /min MD Angle Santana Work Phone: [facility] 07-03-2023 12:00-0500 Respiratory rate 16 /min MD Angle Santana Work Phone: [facility] 07-03-2023 12:00-0500 SaO2% (BldA) [Mass fraction] 100 % MD Angle Santana Work Phone: [facility] 07-03-2023 12:00-0500 Systolic blood pressure 121 mm[Hg] MD Angle Santana Work Phone: [facility] 07-03-2023 04:49-0500 Body weight 85.8 kg MD Angle Santana Work Phone: [facility] 06-30-2023 14:44-0500 Body height 157.48 cm MD Angle Santana Work Phone: [facility] 04-04-2023 16:20-0400 Body height 158.75 cm Raeann Huntercristin Other [employer] [facility] [employer] Other 04-04-2023 16:20-0400 Body mass index (BMI) [Ratio] 31.46 kg/m2 Donnieariel [employer] Other [employer] Other 04-04-2023 16:20-0400 Body temperature 98 [degF] Raeann [employer] Other [employer] Other 04-04-2023 16:20-0400 Body weight 79.29 kg Donnieariel [employer] Other [employer] Other 04-04-2023 16:20-0400 Diastolic blood pressure 81 mm[Hg] Raeann Kirkpatrick Other [facility] [employer] Other 04-04-2023 16:20-0400 Respiratory rate 18 /min Raeann Kirkpatrick Other [facility] [employer] Other 04-04-2023 16:20-0400 SaO2% (BldA) [Mass fraction] 98 % Raeann Kirkpatrick Other [facility] [employer] Other 04-04-2023 16:20-0400 Systolic blood pressure 133 mm[Hg] Raeann Kirkpatrick Other [facility] [employer] Other 10-28-2022 22:23-0400 Body temperature 97.4 [degF] MD Angle Santana Work Phone: [facility] 10-28-2022 22:00-0400 Diastolic blood pressure 74 mm[Hg] MD Angle Santana Work Phone: [facility] 10-28-2022 22:00-0400 Heart rate 72 /min MD Angle Santana Work Phone: [facility] 10-28-2022 22:00-0400 Respiratory rate 20 /min MD Angle Santana Work Phone: [facility] 10-28-2022 22:00-0400 SaO2% (BldA) [Mass fraction] 97 % MD Angle Santana Work Phone: [facility] 10-28-2022 22:00-0400 Systolic blood pressure 169 mm[Hg] MD Angle Santana Work Phone: [facility] 10-28-2022 17:54-0400 Body height 157.48 cm MD Angle Santana Work Phone: [facility] 10-28-2022 17:54-0400 Body weight 83.7 kg MD Angle Santana Work Phone: [facility] 09-27-2022 12:00-0400 Body height 158.75 cm Azariel Bakhous Other [employer] Other 09-27-2022 12:00-0400 Body mass index (BMI) [Ratio] 31.78 kg/m2 Aziz Bakhous Other [employer] Other 09-27-2022 12:00-0400 Body temperature 96.1 [degF] Aziz Bakhous Other [employer] Other 09-27-2022 12:00-0400 Body weight 80.11 kg Aziz Bakhous Other [employer] Other 09-27-2022 12:00-0400 Diastolic blood pressure 82 mm[Hg] Aziz Bakhous Other [employer] Other 09-27-2022 12:00-0400 Respiratory rate 18 /min Aziz Bakhous Other [employer] Other 09-27-2022 12:00-0400 SaO2% (BldA) [Mass fraction] 99 % Aziz Bakhous Other [employer] Other 09-27-2022 12:00-0400 Systolic blood pressure 140 mm[Hg] Aziz Bakhous Other [employer] Other 04-12-2022 14:00-0400 Body height 158.75 cm Aziz Bakhous Other [employer] Other 04-12-2022 14:00-0400 Body mass index (BMI) [Ratio] 30.13 kg/m2 Aziz Bakhous Other [employer] Other 04-12-2022 14:00-0400 Body temperature 97.6 [degF] Raeann Mishras Other [employer] Other 04-12-2022 14:00-0400 Body weight 75.93 kg Raeann Mishras Other [employer] Other 04-12-2022 14:00-0400 Diastolic blood pressure 95 mm[Hg] Raeann Mishras Other [employer] Other 04-12-2022 14:00-0400 Respiratory rate 18 /min Raeann Kirkpatrick Other [employer] Other 04-12-2022 14:00-0400 SaO2% (BldA) [Mass fraction] 98 % Raeann Kirkpatrick Other [employer] Other 04-12-2022 14:00-0400 Systolic blood pressure 175 mm[Hg] Raeann Kirkpatrick Other [employer] Other 06-16-2021 16:20-0500 Body height 158.75 cm Bryonirvin Rascongerald Other [employer] Other 06-16-2021 16:20-0500 Body mass index (BMI) [Ratio] 30.88 kg/m2 Bryonirvin Praveena Other [employer] Other 06-16-2021 16:20-0500 Body temperature 96.4 [degF] Los Rascongerald Other [employer] Other 06-16-2021 16:20-0500 Body weight 77.84 kg Los Grissom Other [employer] Other 06-16-2021 16:20-0500 Diastolic blood pressure 88 mm[Hg] Los Grissom Other [employer] Other 06-16-2021 16:20-0500 Respiratory rate 18 /min Los Grissom Other [employer] Other 06-16-2021 16:20-0500 SaO2% (BldA) [Mass fraction] 99 % Los Grissom Other [employer] Other 06-16-2021 16:20-0500 Systolic blood pressure 137 mm[Hg] Los Grissom Other [employer] Other Encounters Encounter Date Encounter Type Care Provider Facility Start: 07-13-2023 ambulatory BENJIE HIDALGO [facility] Start: 07-11-2023 End: 07-11-2023 ambulatory Raeann Kirkpatrick Other [employer] Other Start: 07-11-2023 Telephone encounter Raeann [facility] Start: 06-29-2023 End: 07-03-2023 Evaluation and management of inpatient Jim Randhawa Facility:[facility] Start: 06-29-2023 End: 07-03-2023 Evaluation and management of inpatient MD Angle Santana Work Phone: [facility] [place] [facility] Work Phone: Start: 04-04-2023 End: 04-04-2023 ambulatory Raeann Mishras Other [employer] Other Start: 04-04-2023 Office outpatient visit 25 minutes Azariel Mishras [facility] Start: 04-03-2023 End: 04-03-2023 ambulatory Azariel Mishras Other [facility] Other Start: 04-03-2023 Telephone encounter Azariel Mishras [facility] Start: 02-22-2023 End: 02-22-2023 ambulatory RHIANNON BERNARD [facility] Start: 02-16-2023 ambulatory DUNCAN DENNIS [facility] Start: 01-13-2023 End: 01-14-2023 ambulatory SHERLY ROSADO [facility] Start: 12-15-2022 End: 12-16-2022 ambulatory [facility] Start: 12-12-2022 End: 12-12-2022 ambulatory Azariel Bakhous Other [employer] Other Start: 12-12-2022 Telephone encounter Raeann Mishras [facility] Start: 12-08-2022 End: 12-08-2022 ambulatory Raeann Mishras Other [facility] Other Start: 12-08-2022 Telephone encounter Raeann Mishras [facility] Start: 11-30-2022 End: 11-30-2022 ambulatory [facility] Start: 11-22-2022 End: 11-22-[address] ANGLE SANTANA . Facility:[facility] Start: 11-22-2022 End: 11-22-2022 ambulatory NARENDRANATH LAKSHMIPATHY . Facility:[facility] Start: 11-16-2022 End: 11-16-[address] ANGLE SANTANA . Facility:[facility] Start: 11-07-2022 End: 11-07-2022 ambulatory [facility] Start: 11-04-2022 End: 11-05-2022 ambulatory NARENDRANATH LAKSHMIPATHY . Facility:[facility] Start: 11-03-2022 End: 11-03-[address] ANGLE SANTANA . Facility:[facility] Start: 10-31-2022 ambulatory SANTOS ONELIA . Facili ty:[facility] Start: 10-28-2022 End: 10-29-2022 Emergency department patient visit Favian Helm Facility:[facility] Start: 10-28-2022 End: 10-28-2022 Emergency department patient visit MD Angle Santana Work Phone: [facility] Work Phone: Start: 10-28-2022 End: 10-28-2022 ambulatory [facility] Start: 10-27-2022 End: 10-28-2022 ambulatory SADIE DEL [...] Facility:[facility] Start: 10-10-2022 End: 10-10-2022 ambulatory ZANDRA [facility] Start: 10-05-2022 End: 10-07-[address] ANGLE SANTANA . Facility:[facility] Start: 10-05-2022 ambulatory FELECIA MILIAN . Facility: [facility] Start: 09-29-2022 End: 10-04-[address] ANGLE SANTANA . Facility:[facility] Start: 09-27-2022 End: 09-27-2022 ambulatory Raeann Kirkpatrick Other [facility] Other Start: 09-27-2022 Office outpatient visit 25 [...] 08-23-2022 End: 08-23-2022 ambulatory Sue Leiva Other [facility] Other Start: 08-23-2022 Office outpatient ne w 30 minutes Sue Leiva [facility] Start: 08-16-2022 End: 08-17-[address] [...] 04-12-2022 End: 04-12-2022 ambulatory Donnieariel Tadjohnnie Other [facility] Other Start: 04-12-2022 Office outpatient visit 25 minutes Raeann Harrisoncristin [facility] [place] Start: 04-06-[address] [...] Start: 01-10-2022 End: 01-11-2022 ambulatory Robert Johnston Facility:[facility] Start: 01-06-2022 End: 01-07-[address] ANGLE SANTANA . Facility:[facility] Start: 12-30-2021 End: 01-19-[address] ANGLE SANTANA . Facility:[facility] Start: 12-23-2021 End: 12-24-2021 ambulatory NNAMDI DEJESUS . Facility:[facility] Start: 12-07-2021 End: 12-22-[address] ANGLE SANTANA . Facility:[facility] Start: 12-07-2021 End: 12-07-[address] ANGLE SANTANA . Facility:[facility] Start: 08-19-2021 End: 08-20-2021 ambulatory CARLOS REZA Facility:[facility] Start: 06-16-2021 End: 06-16-2021 ambulatory Los Grissom Other [facility] Other Start: 06-16-2021 Office outpatient visit 25 minutes Los Grissom [facility] Start: 01-14-2019 End: 01-14-2019 Patient encounter procedure [facility] Start: 12-03-2018 End: 12-03-2018 Patient encounter procedure [facility] Procedures Date Procedure Procedure Detail Performing Clinician [...] Date Care Activity Detail Author Start: 07-03-2023 [facility] Start: 06-29-2023 Hospital admission [facility] Start: 06-29-2023 Referral to coin box collector [facility] Blood chemistry [facility] Patient Education [facility] Work Phone: Patient referral [facility] Work Phone: Payers Date Payer Category Payer Medicare [id number] 2022 Self-pay [id number] 2017 Medicare [id number] 2017 Unknown [id number] 1962 Unknown [id number] 2.16.8 40.1.505057.3.579.2.173 1962 Unknown [id number] 2.16.8 40.1.767260.3.579.2.173 1962 Unknown [id number] 2.16.8 40.1.497394.3.579.2.647 1962 Unknown [id number] 2.16.8 40.1.914076.3.579.2.647 1962 Unknown [id number] 2.16.84 0.1.612773.3.579.2.593 1962 Unknown [id number] 2.16.84 0.1.772692.3.579.2.593 1962 Unknown [id number] 2.16.84 0.1.861615.3.579.2.593 1962 Unknown [id number] 2.16.84 0.1.353677.3.579.2.593 1962 Unknown [id number] 2.16.84 0.1.391278.3.579.2.593 1962 Unknown [id number] 2.16.84 0.1.060435.3.579.2.593 1962 Unknown [id number] 2.16.84 0.1.730848.3.579.2.593 1962 Unknown [id number] 2.16.84 0.1.881451.3.579.2.593 1962 Unknown [id number] 2.16.84 0.1.391729.3.579.2.593 1962 Unknown [id number] 2.16.84 0.1.289585.3.579.2.593 1962 Unknown [id number] 2.16.84 0.1.340950.3.579.2.593 1962 Unknown [id number] 2.16.84 0.1.956579.3.579.2.593 1962 Unknown [id number] 2.16.84 0.1.984639.3.579.2.593 1962 Unknown [id number] 2.16.84 0.1.646084.3.579.2.593 1962 Unknown [id number] 2.16.84 0.1.426967.3.579.2.593 1962 Unknown [id number] 2.16.84 0.1.678974.3.579.2.593 1962 Unknown [id number] 2.16.84 0.1.082754.3.579.2.593 1962 Unknown [id number] 2.16.84 0.1.247870.3.579.2.593 1962 Unknown [id number] 2.16.84 0.1.811620.3.579.2.593 1962 Unknown [id number] 2.16.84 0.1.146573.3.579.2.593 1962 Unknown [id number] 2.16.84 0.1.230634.3.579.2.593 1962 Unknown [id number] 2.16.84 0.1.028636.3.579.2.593 1962 Unknown [id number] 2.16.84 0.1.511834.3.579.2.593 1962 Unknown [id number] 2.16.84 0.1.788827.3.579.2.593 1962 Unknown [id number] 2.16.84 0.1.627870.3.579.2.593 1962 Unknown [id number] 2.16.84 0.1.518013.3.579.2.593 1962 Unknown [id number] 2.16.84 0.1.226262.3.579.2.593 1962 Unknown [id number] 2.16.84 0.1.561628.3.579.2.593 1962 Unknown [id number] 2.16.84 0.1.262549.3.579.2.593 1962 Unknown [id number] 2.16.84 0.1.032957.3.579.2.593 1962 Unknown [id number] 2.16.84 0.1.372037.3.579.2.593 1962 Unknown [id number] 2.16.84 0.1.735805.3.579.2.593 1962 Unknown [id number] 2.16.84 0.1.898334.3.579.2.593 1962 Unknown [id number] 2.16.84 0.1.702958.3.579.2.593 1962 Unknown [id number] 2.16.84 0.1.165592.3.579.2.593 1962 Unknown [id number] 2.16.84 0.1.403028.3.579.2.593 1962 Unknown [id number] 2.16.84 0.1.591327.3.579.2.593 1962 Unknown [id number] 2.16.84 0.1.048710.3.579.2.593 1962 Unknown [id number] 2.16.84 0.1.814325.3.579.2.593 1962 Unknown [id number] 2.16.84 0.1.751617.3.579.2.593 1962 Unknown [id number] 2.16.84 0.1.733747.3.579.2.593 1962 Unknown [id number] 2.16.84 0.1.118938.3.579.2.593 1962 Unknown [id number] 2.16.84 0.1.886565.3.579.2.593 1962 Unknown [id number] 2.16.84 0.1.372447.3.579.2.593 1962 Unknown [id number] 2.16.84 0.1.016069.3.579.2.593 1962 Unknown [id number] 2.16.84 0.1.412986.3.579.2.593 1959 Medicaid [id number] Unknown [id number] 2.1 6.840.1.604791.19 Unknown Aron ROSALES/HILARIA [id number] Unknown [id number] 2.16.8 40.1.760816.3.579.2.531 Unknown [id number] 2.16.8 40.1.393165.3.579.2.531 Social History Date Type Detail Facility Unknown if ever smoked [facility] Other Sex Assigned At Sex Assigned At Bir th [facility] Other Start: 10-28-2022 End: 06-30-2023 Tobacco smoking status NHIS Never smoked tobacco (finding) [facility] Start: 1960 Sex Assigned At Female F [facility] Goals Date Patient Goal Desired Activity /State Functional Status Date Assessment Result Facility 07-03-2023 Functional status Patient at Baseline [facility] Work Phone: Mental Status Date Assessment Result Facility 07-03-2023 Cognitive function Cognitive Sta tus Patient at Baseline [facility] Work Phone: Clinical Notes 06-16-2021 to 07-13-2023 Note Date & Type Note Facility 07-13-2023 Note [facility] Subjective Mabel Moser is a 63 y.o. year old female patient being seen for 6 mo follow up chronic diastolic heart failure, CKD, and CAD. Says she saw Dr. Santana yesterday and he raised her spironolactone to 100mg, which she takes PRN. She was seen in [facility] 2 weeks ago for LE edema [...] kidney disease) stage 3, GFR 30-59 ml/min ([facility]) Closed fracture of trochanter of femur (CMS/HCC) Clostridium difficile colitis Coronary arteriosclerosis Diffuse thyroid 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 thyrotoxicosis Fluid overload Dehydration Cortical age-related cataract of left eye COVID-19 Displacement of lumbar intervertebral disc without myelopathy Edema of lower extremity Edema Orthopnea Dyspnea Endogenous obesity Essential tremor Chronic diastolic heart failure, NYHA class 2 ([facility]) H/O gastric bypass Gouty arthropathy Gastroesophageal reflux [...] In the past she was admitted to [facility] in 2019 with fluid overload and [...] reviewed and a (more content not included)... [facility] 07-03-2023 Progress note Note Date/Time July 03, 2023 12:18pm [facility] [address] [place] [address] Nephrology Progress Note Signed Patient: Mabel Moser MR#: [id number] : 1960 Acct:[id number] Age/Sex: 63 / F Adm Date: 4 Loc: Room: [address] [place] [address] Type: ADM IN Attending Dr: Jim Randhawa [...] 50 Mg Tablet) 150 mg PO QHS [facility] Stop: 06/29/24 21:59 Last Admin: 07/02/23 21:00 Dose: 150 mg Aripiprazole (Aripiprazole 2 Mg Tablet) 2 mg PO DAILY [facility] Stop: 06/29/24 08:59 Last Admin: 07/03/23 08:13 Dose: 2 mg Bisacodyl (Bisacodyl 5 Mg Tablet.) 10 mg PO DAILY PRN PRN Reason: Constipation Stop: 06/28/24 21:34 Bumetanide (Bumetanide 1 Mg/4 Ml Vial) 1 mg IV-PUSH BID@0800,1600 [facility] Stop: 06/29/24 07:59 Last Admin: 07/03/23 [...] 100 Mcg/Hour Patch.Td72) 100 mcg TRANSDERML Q72H [facility]; Protocol Last Admin: 07/03/23 08:12 Dose: 100 mcg Ferrous Sulfate (Ferrous Sulfate 324 Mg Tablet.Dr) 324 mg PO DAILY [facility] Stop: 06/29/24 08:59 Last Admin: 07/03/23 08:13 Dose: 324 mg Gabapentin (Gabapentin 100 Mg Capsule) 100 mg PO TID [facility] Stop: 06/29/24 08:59 Last Admin: 07/03/23 08:13 Dose: 100 mg Guaifenesin/Dextromethorphan (Guaif/Dextromethorphan Syrup 10 Ml Udc) 10 ml PO Q8H PRN PRN Reason: Cough Stop: 06/28/24 21:34 Heparin Sodium (Porcine) (Heparin 5,000 Unit/Ml Vial) 5,000 unit SUBCUT Q12HR [facility] Stop: 06/29/24 08:59 Last Admin: 07/03/23 08:14 Dose: 5,000 unit Levothyroxine Sodium (Levothyroxine 100 Mcg Tablet) 100 mcg PO DAILY@0630 [facility] Stop: 06/29/24 06:29 Last Admin: 07/03/23 06:23 Dose: 100 mcg Linaclotide (Linaclotide 290 Mcg Capsule) 290 mcg PO Q48HR [facility] Stop: 06/29/24 08:59 Last Admin: 07/02/23 08:59 Dose: 290 mcg Liothyronine Sodium (Liothyronine 25 Mcg Tablet) 25 mcg PO DAILY@0630 [facility] Stop: 06/29/24 10:59 Last Admin: 07/03/23 06:23 Dose: 25 mcg Loratadine (Loratadine 10 Mg Tablet) 10 mg PO DAILY PRN PRN Reason: Allergy Symptoms Stop: 06/29/24 06:54 Melatonin (Melatonin 5 Mg Tablet) 5 mg PO QHS PRN PRN Reason: Insomnia Stop: 06/28/24 21:34 Metoprolol Tartrate (Metoprolol Tartrate 25 Mg Tablet) 25 mg PO BID [facility] Stop: 06/29/24 20:59 Last Admin: 07/03/23 [...] <Electronically signed by Raeann Kirkpatrick MD> 07/03/23 4380 [facility] Work Phone: 1(607) 836-579201-07-2024 Progress note Author Jim Randhawa [facility] July 02, 2023 11:26am Note Date/Time July 02, 2023 11 :26am [facility] [address] [place] [address] Hospitalist Progress Note Signed Patient: Mabel Moser MR#: [id number] : 1960 Acct:[id number] Age/Sex: 63 / F Adm Date: 4 Loc: 3T Room: [address] [place] [address] Type: ADM IN Attending Dr: Jim Randhawa [...] 09:00 07/02/23 08:55 Pantoprazole 40 Mg Tablet.Dr CMMANUS 06/29/24 08:59 40 mg BID LOREN Administration [...] signed by Jim Randhawa DO> 07/02/23 1126 [facility] Work Phone: 1([phone]) 304-918401-07-2024 Progress note Author Los Grissom [facility] July 02, 2023 10:42am Note Date/Time July 02, 2023 10 :42am [facility] [address] [place] [address] Nephrology Progress Note Signed Patient: Mabel Moser MR#: [id number] : 1960 Acct:[id number] Age/Sex: 63 / F Adm Date: 4 Loc: Room: [address] [place] [address] Type: ADM IN Attending Dr: Jim Randhawa [...] Mg/4 Ml Vial) 1 mg IV-PUSH BID@0800,1600 [facility] Stop: 06/29/24 07:59 Last Admin: 07/02/23 08:55 Dose: 1 mg Calcium Acetate (Calcium Acetate 667 Mg Capsule) 667 mg PO BID.WITH.MEALS [facility] Stop: 06/29/24 07:59 Last Admin: 07/02/23 08:55 Dose: 667 mg Duloxetine HCl (Duloxetine 60 Mg Capsule.) 120 mg PO DAILY [facility] Stop: 06/29/24 08:59 Last Admin: 07/02/23 08:59 Dose: 120 mg Fentanyl (Fentanyl Patch 100 Mcg/Hour Patch.Td72) 100 mcg TRANSDERML Q72H [facility]; Protocol Last Admin: 06/30/23 09:31 Dose: 100 mcg Ferrous Sulfate (Ferrous Sulfate 324 Mg Tablet.) 324 mg PO DAILY [facility] Stop: 06/29/24 08:59 Last Admin: 07/02/23 08:55 Dose: 324 mg Gabapentin (Gabapentin 100 Mg Capsule) 100 mg PO TID [facility] Stop: 06/29/24 08:59 Last Admin: 07/02/23 08:55 Dose: 100 mg Guaifenesin/Dextromethorphan (Guaif/Dextromethorphan Syrup 10 Ml Udc) 10 ml PO Q8H PRN PRN Reason: Cough Stop: 06/28/24 21:34 Heparin Sodium (Porcine) (Heparin 5,000 Unit/Ml Vial) 5,000 unit SUBCUT Q12HR [facility] Stop: 06/29/24 08:59 Last Admin: 07/02/23 08:55 Dose: 5,000 unit Levothyroxine Sodium (Levothyroxine 100 Mcg Tablet) 100 mcg PO DAILY@0630 [facility] Stop: 06/29/24 06:29 Last Admin: 07/02/23 05:48 Dose: 100 mcg Linaclotide (Linaclotide 290 Mcg Capsule) 290 mcg PO Q48HR [facility] Stop: 06/29/24 08:59 Last Admin: 07/02/23 08:59 Dose: 290 mcg Liothyronine Sodium (Liothyronine 25 Mcg Tablet) 25 mcg PO DAILY@0630 [facility] Stop: 06/29/24 10:59 Last Admin: 07/02/23 05:48 Dose: 25 mcg Loratadine (Loratadine 10 Mg Tablet) 10 mg PO DAILY PRN PRN Reason: Allergy Symptoms Stop: 06/29/24 06:54 Melatonin (Melatonin 5 Mg Tablet) 5 mg PO QHS PRN PRN Reason: Insomnia Stop: 06/28/24 21:34 Metoprolol Tartrate (Metoprolol Tartrate 25 Mg Tablet) 25 mg PO BID [facility] Stop: 06/29/24 20:59 Last Admin: 07/02/23 08:55 Dose: 25 mg Ondansetron HCl (Ondansetron 4 Mg/2 Ml Vial) 4 mg IV-PUSH Q8H PRN PRN Reason: Nausea And Vomiting Stop: 06/28/24 21:34 Oxycodone/Acetaminophen (Oxycodone/Acetaminophen 5-325 Mg Tablet) 2 tab PO Q6H PRN PRN Reason: Pain Last Admin: 07/02/23 02:00 Dose: 2 tab Pantoprazole Sodium (Pantoprazole 40 Mg Tablet.Dr) 40 mg PO BID [facility] Stop: 06/29/24 08:59 Last Admin: 07/02/23 08:55 Dose: 40 mg Primidone (Primidone 50 Mg Tablet) 100 mg PO HS [facility] Stop: 06/29/24 21:59 Last Admin: 07/01/23 21:21 Dose: 100 mg Sevelamer Carbonate (Sevelamer Carbonate 800 Mg Tablet) 800 mg PO TID.WITH.MEALS [facility] Stop: 06/29/24 11:59 Last Admin: 07/02/23 [...] signed by MD Los Grissom> 07/02/23 1042 [facility] Work Phone: 1([phone]) 875-793201-06-2024 Progress note Author Jim Randhawa [facility] July 01, 2023 1:52pm Note Date/Time July 01, 2023 1: 37pm [facility] [address] [place], [place] [id number] Hospitalist Progress Note Signed Patient: Mabel Moser MR#: [id number] : 1960 Acct:[id number] Age/Sex: 63 / F Adm Date: 4 Loc: Room: [address] [place] [address] Type: ADM IN Attending Dr: Jim Randhawa [...] signed by Jim Randhawa DO> 07/01/23 1352 [facility] Work Phone: 1(989) 303-705301-06-2024 Progress note Author Los Grissom [facility] July 01, 2023 10:16am Note Date/Time July 01, 2023 10 :16am [facility] [address] [place], [place] [id number] Nephrology Progress Note Signed Patient: Mabel Moser MR#: [id number] : 1960 Acct:[id number] Age/Sex: 63 / F Adm Date: 4 Loc: Room: [address] [place] [address] Type: ADM IN Attending Dr: Jim Randhawa [...] 50 Mg Tablet) 150 mg PO QHS [facility] Stop: 06/29/24 21:59 Last Admin: 06/30/23 21:17 Dose: 150 mg Aripiprazole (Aripiprazole 2 Mg Tablet) 2 mg PO DAILY [facility] Stop: 06/29/24 08:59 Last Admin: 07/01/23 08:21 Dose: 2 mg Bisacodyl (Bisacodyl 5 Mg Tablet.Dr) 10 mg PO DAILY PRN PRN Reason: Constipation Stop: 06/28/24 21:34 Bumetanide (Bumetanide 1 Mg/4 Ml Vial) 1 mg IV-PUSH BID@0800,1600 [facility] Stop: 06/29/24 07:59 Last Admin: 07/01/23 08:21 Dose: 1 mg Calcium Acetate (Calcium Acetate 667 Mg Capsule) 667 mg PO BID.WITH.MEALS [facility] Stop: 06/29/24 07:59 Last Admin: 07/01/23 08:20 Dose: 667 mg Duloxetine HCl (Duloxetine 60 Mg Capsule.Dr) 120 mg PO DAILY [facility] Stop: 06/29/24 08:59 Last Admin: 07/01/23 08:20 Dose: 120 mg Fentanyl (Fentanyl Patch 100 Mcg/Hour Patch.Td72) 100 mcg TRANSDERML Q72H [facility]; Protocol Last Admin: 06/30/23 09:31 Dose: 100 mcg Ferrous Sulfate (Ferrous Sulfate 324 Mg Tablet.) 324 mg PO DAILY [facility] Stop: 06/29/24 08:59 Last Admin: 07/01/23 08:20 Dose: 324 mg Gabapentin (Gabapentin 100 Mg Capsule) 100 mg PO TID [facility] Stop: 06/29/24 08:59 Last Admin: 07/01/23 08:20 Dose: 100 mg Guaifenesin/Dextromethorphan (Guaif/Dextromethorphan Syrup 10 Ml Udc) 10 ml PO Q8H PRN PRN Reason: Cough Stop: 06/28/24 21:34 Heparin Sodium (Porcine) (Heparin 5,000 Unit/Ml Vial) 5,000 unit SUBCUT Q12HR [facility] Stop: 06/29/24 08:59 Last Admin: 07/01/23 08:21 Dose: 5,000 unit Levothyroxine Sodium (Levothyroxine 100 Mcg Tablet) 100 mcg PO DAILY@0630 [facility] Stop: 06/29/24 06:29 Last Admin: 07/01/23 05:46 Dose: 100 mcg Linaclotide (Linaclotide 290 Mcg Capsule) 290 mcg PO Q48HR [facility] Stop: 06/29/24 08:59 Last Admin: 06/30/23 09:33 Dose: 290 mcg Liothyronine Sodium (Liothyronine 25 Mcg Tablet) 25 mcg PO DAILY@0630 [facility] Stop: 06/29/24 10:59 Last Admin: 07/01/23 05:46 Dose: 25 mcg Loratadine (Loratadine 10 Mg Tablet) 10 mg PO DAILY PRN PRN Reason: Allergy Symptoms Stop: 06/29/24 06:54 Melatonin (Melatonin 5 Mg Tablet) 5 mg PO QHS PRN PRN Reason: Insomnia Stop: 06/28/24 21:34 Metoprolol Tartrate (Metoprolol Tartrate 25 Mg Tablet) 25 mg PO BID [facility] Stop: 06/29/24 20:59 Last Admin: 07/01/23 [...] signed by MD Los Grissom> 07/01/23 1016 [facility] Work Phone: 1([phone]) 187-662401-05-2024 Progress note Author Jim Randhawa [facility] June 30, 2023 1:13pm Note Date/Time June 30, 2023 1: 13pm [facility] [address] [place] [address] Hospitalist Progress Note Signed Patient: Mabel Moser MR#: [id number] : 1960 Acct:[id number] Age/Sex: 63 / F Adm Date: 4 Loc: Room: [address] [place] [address] Type: ADM IN Attending Dr: Jim Randhawa [...] <Electronically signed by Jim Randhawa DO> 06/30/23 5446 [facility] Work Phone: 1(655) 127-698101-05-2024 Consult note Author Los Grissom [facility] June 30, 2023 10:45am Note Date/Time June 30, 2023 10 :26am [facility] [address] [place] [address] Nephrology Consult Note Signed Patient: Mabel Moser MR#: [id number] : 1960 Acct:[id number] Age/Sex: 63 / F Adm Date: 4 Loc: Room: [address] [place] [address] Type: ADM IN Attending Dr: Jim Randhawa [...] and no additional complaints, except as documented [facility] Medical History CAD (coronary artery disease) [...] 50 Mg Tablet) 150 mg PO QHS [facility] Stop: 06/29/24 21:59 Aripiprazole (Aripiprazole 2 Mg Tablet) 2 mg PO DAILY [facility] Stop: 06/29/24 08:59 Last Admin: 06/30/23 09:30 Dose: 2 mg Bisacodyl (Bisacodyl 5 Mg Tablet.) 10 mg PO DAILY PRN PRN Reason: Constipation Stop: 06/28/24 21:34 Bumetanide (Bumetanide 1 Mg/4 Ml Vial) 1 mg IV-PUSH BID@0800,1600 [facility] Stop: 06/29/24 07:59 Last Admin: 06/30/23 09:31 Dose: 1 mg Calcium Acetate (Calcium Acetate 667 Mg Capsule) 667 mg PO BID.WITH.MEALS [facility] Stop: 06/29/24 07:59 Last Admin: 06/30/23 09:30 Dose: 667 mg Duloxetine HCl (Duloxetine 60 Mg Capsule.) 120 mg PO DAILY [facility] Stop: 06/29/24 08:59 Last Admin: 06/30/23 09:30 Dose: 120 mg Escitalopram Oxalate (Escitalopram 20 Mg Tablet) 20 mg PO DAILY [facility] Stop: 06/29/24 08:59 Last Admin: 06/30/23 09:31 Dose: 20 mg Fentanyl (Fentanyl Patch 100 Mcg/Hour Patch.Td72) 100 mcg TRANSDERML Q72H [facility]; Protocol Last Admin: 06/30/23 09:31 Dose: 100 mcg Ferrous Sulfate (Ferrous Sulfate 324 Mg Tablet.) 324 mg PO DAILY [facility] Stop: 06/29/24 08:59 Last Admin: 06/30/23 09:31 Dose: 324 mg Gabapentin (Gabapentin 100 Mg Capsule) 100 mg PO TID [facility] Stop: 06/29/24 08:59 Last Admin: 06/30/23 09:31 Dose: 100 mg Guaifenesin/Dextromethorphan (Guaif/Dextromethorphan Syrup 10 Ml Udc) 10 ml PO Q8H PRN PRN Reason: Cough Stop: 06/28/24 21:34 Heparin Sodium (Porcine) (Heparin 5,000 Unit/Ml Vial) 5,000 unit SUBCUT Q12HR [facility] Stop: 06/29/24 08:59 Last Admin: 06/30/23 09:32 Dose: 5,000 unit Levothyroxine Sodium (Levothyroxine 100 Mcg Tablet) 100 mcg PO DAILY@0630 [facility] Stop: 06/29/24 06:29 Last Admin: 06/30/23 05:55 Dose: 100 mcg Linaclotide (Linaclotide 290 Mcg Capsule) 290 mcg PO Q48HR [facility] Stop: 06/29/24 08:59 Last Admin: 06/30/23 09:33 Dose: 290 mcg Liothyronine Sodium (Liothyronine 25 Mcg Tablet) 25 mcg PO DAILY [facility] Stop: 06/29/24 08:59 Loratadine (Loratadine 10 [...] 40 Mg Tablet.Dr) 40 mg PO BID [facility] Stop: 06/29/24 08:59 Last Admin: 06/30/23 [...] signed by MD Los Grissom> 06/30/23 1045 [facility] Work Phone: 1(492) 290-547801-04-2024 History and physical note Author Beatriz Oh [facility] June 29, 2023 9:51pm Note Date/Time June 29, 2023 9: 47pm [facility] [address] [place] [address] Hospitalist H&P Signed Patient: Mabel Moser MR#: [id number] : 1960 Acct:[id number] Age/Sex: 63 / F Adm Date: 4 Loc: Room: [address] [place] [address] Type: ADM IN Attending Dr: Papito Garces [...] She denies having dysuria, hematuria, or frequency. [facility] Medical History CAD (coronary artery disease) [place] filter in place Hypertension Surgical History History [...] mg PO BID 08/31/18 [History Confirmed 10/28/22] stmzxyzf-avotybs-brqn-iron fum 18 mg-folic 600 mcg-vit K 80 [...] TID PRN Edema 10/28/22 [History Confirmed 10/28/22] ntwuwhpcjg-dygjudbpxiwnx-owbhojfp 50 mg-325 mg-40 mg capsule 1 cap [...] signed by Beatriz Oh MD> 06/29/23 215 [facility] Work Phone: 1(665) 186-902410-10-2023 Evaluation note* Encounter Date Diagnosis Assessment Notes [...] G43.519) Advised the patient to follow with [facility] neurology clinic [place], Chronic kidney disea [...] Hyperphosphatemia (ICD-10 - E83.39) Continue PhosLo with [employer] Other [id number] NoteRemains stable without worsening symptomsUnUniversity [facility]als [facility]08-30-2023 NoteCoronary artery disease is stable Continue GDMT continue risk factor modifications- heart healthy diet, regular exercise as tolerated and continue all medications.[facility] 02-22-2023 NoteNYHC II Continue GDMT- entresto- metoprolol and aldactone have been dc's r/t hypotension. Diuretic therapy- bumex 2 mg bid- Monitor daily weights, I&O, fluid restriction 1.5-2L/day, renal function and electrolytes- please maintain K+>4 and Mg > 2UnUniversity Hospitals Sam[facility] 02-22-2023 NoteRCRI- 0???points Class I Risk 3.9???% 30-day risk of , [place], or cardiac arrest From a cardiology perspective pt may proceed with Total knee arthroplasty with Dr Dennis, she is a low to moderate risk for a low to mod risk orthopedic surgery. She does not take any Aspirin, or anticoagulation. Please monitor hemodynamics carefully and prevent any major fluid shifts.[facility]08-30-2023 NoteUTP CARDIOLOGY PROGRESS NOTE HPI: Mabel Moser is a 62 y.o. female here for pre surgery risk stratification Patient here for 2 mo follow up pulmonary hypertension and hypertension. She was admitted to [facility] twice this past month. She needs cleared [...] is alert and or (more content not included)...[facility]08-30-2023 NotePatient here for 2 mo follow up pulmonary hypertension and hypertension. She was admitted to [facility] twice this past month. She needs cleared for knee replacement surgery with Dr. Dennis. Denies chest pain, lightheadedness, and palpitations. Says SOB is improving. Review of Systems Constitutional: Positive for malaise/fatigue. Cardiovascular: Positive for dyspnea on exertion (improving). Musculoskeletal: Positive for arthritis, back pain and joint pain. All other systems reviewed and are negative.[facility] 02-16-2023 NoteSubjective: Patient ID: Mabel Moser [...] History: Diagnosis Date CHF (congestive heart failure) ([facility]) Coronary artery disease Heart valve disease There [...] proceed with surgery. Oneal Downey, M3 [facility] 02/16/23 As the teaching physician, I have personally performed or re-performed the history of present illness, physical exam and medical decision-making activities of the encounter and verified the medical student's documentation. I made pertinent changes as necessary to ensure accurate documentation. Additional Comments: [facility]07-21-2023 NoteData Mabel Moser 1960 Chief Complaint [...] specifically wasdoing aquatic therapy, at [facility] with mild improvement. patient has had injections in the past, and did have some improvement however feels that getting significant improvement with these. She is interested in considering surgical intervention. Of Note, she did have a R. Total knee arthroplasty about 8 years at [facility]. Patient is also complaining of Left hip pain that worsened about a year ago after she had a fall. She did have x-rays completed after this, and was told that she had a chip off of her bone. . She saw Dr. Barajas at [facility] who recommended continiues conservative management. Hip pain rated as a 4-5/10. Most of her pain on the outer aspect of the hip. No prior injections or focused PT for the hip. Past Medical History: Diagnosis Date CHF (congestive heart failure) ([facility]) Coronary artery disease Heart valve disease History [...] in detail including differentia (more content not included)...[facility]06-22-2023 Note MD Cardiology - [facility] Subjective Mabel Moser is a [...] In the past she was admitted to [facility] in 2019 with fluid overload and [...] not ill-appearing. HENT: H (more content not included)...[facility]06-07-2023 NotePt insists right subclavian chest port is accessed for procedure. 4CD RN at bedside to access. RN is not able to access. Li RN CVL spoke with Dr Hidalgo and pt can go to hospital laboratory technician without IV access for RHC.[facility]06-07-2023 NotePatient: Mabel Moser Procedure Information Date/Time: 11/30/22 1300 Procedure: Right heart cath Location: [facility] ONLINE ADVERTISING DIRECTOR 3 / [facility] ([facility]) Providers: Benjie Hidalgo MD [...] products. Plan discussed with fellow. Additional Equipment RequestsUnUniversity Hospitals [facility]aritan [facility]05-15-2023 Note MD Cardiology - [facility] Subjective Mabel Moser is a 62 y.o. year old female patient being seen for 2 week follow up per Sofie Bernard CNP. She says since she was last seen on 10/28, Dr. Santana increased her Entresto to 97-103mg bid, metoprolol to 50mg TID, and hydralazine to 100mg TID. Says she was in [facility] again last Monday with a BP [...] In the past she was admitted to [facility] in 2019 with fluid overload and [...] is no distension. Pal (more content not included)...[facility]05-05-2023 NoteHeadaches today and to be evaluated in ED- worst H/A I have ever had. [facility]05-05-2023 NoteCoronary artery disease is stable Continue GDMTUnUniversity Hospitals Samaritan Medical Center05-05-2023 NoteHypertension is uncontrolled with c/o worst headache ever- recommended [facility]-2023 NoteContinue to monitor with echoUnUniversity Hospitals Samaritan Medical Center05-05-2023 NoteNYHC- IV- SOB with rest and + Orthopnea, volume overloaded on exam despite Bumex 1 mg po tid and increased renal function. Noted elevated rt sided pressures with RVSP 59 and dilated RV on Echo 09/21/22- She has h/o PE in the past and currently on ASA. CR was increasing on labs noted 10/26/22- CR 1.68/BUN 45 at admit was 1.23/ 38 [facility]05-05-2023 NoteUTP CARDIOLOGY PROGRESS NOTE HPI: Mabel Moser is a 62 y.o. female here for hospital f/u Patient here for follow up [facility] on 10/24/2022 for fluid overload. She [...] in the morning, afternoon, and at bedtime. ykwfoqemvf-yvbxgyvpyhpir-ztfv (Esgic) 50-325-40 mg capsule prjaoagqbb-ljqhbdnkbrrww-sfirvfhx 50 mg-325 mg-40 mg capsule butorphanol (Stadol) [...] hypertension Hypertension is uncontrolle (more content not included)...[facility]05-05-2023 NotePatient here for follow up [facility] on 10/24/2022 for fluid overload. She [...] light-headedness. All other systems reviewed and are negative.[facility] 10-10-2022 NoteCardiovascular Medicine [facility] SUBJECTIVE Chief Complaint Patient presents with Congestive Heart Failure Re-establish care HPI Mabel Moser is a 62 y.o. female here to re-establish care. She was recently discharged from [facility] for fluid overload. Her weight went up [...] She follows with a kidney specialist at [facility]. Her leg swelling has improved but [...] She has been admitted in 07/2018 to [facility] with dyspnea, fluid overload and was diuresed. [...] vitamin B12 deficiency Pulmona (more content not included)...[facility] 10-10-2022 NoteNew patient here to re-establish care. She was last seen in [address] Hidalgo. She was discharged 10/07/2022 from [facility] for fluid overload. Had echo 09/21/2022. Says PCP put her on Entresto a few months ago, and recently decreased her dose due to hyperkalemia per patient. Review of Systems Constitutional: Positive for malaise/fatigue. Cardiovascular: Positive for dyspnea on exertion, leg swelling and palpitations. Musculoskeletal: Positive for arthritis, back pain and joint pain. Neurological: Positive for light-headedness. All other systems reviewed and are negative.[facility] 09-27-2022 Evaluation note* Encounter Date Diagnosis [...] G43.519) Advised the patient to follow with [facility] neurology clinic [facility] [employer] Other 03-28-2023 NoteThe [facility] [id number] Evaluation note* Encounter Date Diagnosis Assessment Notes Treatment Notes Treatment Clinical Notes Jul, Contusion of right wrist, initial encounter (ICD-10 - S60.211A) Patient placed in cock up wrist splint. Activities 2-5 lbs ADLs [facility] Other 12-13-2022 NoteThe [facility] [id number] NoteThe [facility] [id number] NoteThe [facility] HospitalXirlihxv72-07-0966 Evaluation note * Encounter Date Diagnosis Assessment [...] pressure. Advised the patient to follow-up with [facility] neurology clinic I will try to reach to Dr. Santana's office about fludrocortisone I would continue same blood pressure medications. Advised the patient to follow a low-salt diet and to monitor her blood pressure at home Mar, Migraine aura, persistent, intractable (ICD-10 - G43.519) Advised the patient to follow with [facility] neurology clinic [facility] Other 08-04-2022 NoteThe [facility] [id number] NoteThe [facility] [id number] Evaluation note* Encounter Date Diagnosis Assessment Notes [...] off all diuretics metolazone, spironolactone and bumetanide. [facility] Other Discharge summary Author Jim Randhawa [facility] July 03, 2023 3:03pm Note Date/Time July 03, 2023 2: 55pm [facility] [address] [place] [address] Discharge Summary Signed Patient: Mabel Moser MR#: [id number] : 1960 Acct:[id number] Age/Sex: 63 / F Adm Date: 4 Loc: Room: [address] [place] [address]: Jim Randhawa DO Copies to: [...] signed by Jim Randhawa, > 07/03/23 1503 [facility] Work Phone: Evaluation noteNo assessment information available [facility] Work Phone: Evaluation noteNo InformationNort [email or web address] Other Evaluation note* Diagnosis Onset Date Resolution Status Acute heart failure acute LEEANN (acute kidney injury) ac comanche Anemia chronic CKD (chronic kidney disease) stage 3, GFR 30-59 ml/min chronic Hypertension chronic [facility] Work Phone: Hispbez general Narrative - Reported* Type Description Date [...] History COVID 05/2020 Hospitalization History COVID 04/2021 [facility] Other hisWe Cluster general Narrative - Reported* Type Description Date [...] History COVID 05/2020 Hospitalization History COVID 04/2021 [facility] Other history general Narrative - Reported* Type [...] 04/2021 Hospitalization History ELEVATED POTASSIUM LEVEL 09/19/2022 [facility] Other Hospital Discharge instructions Additional Instructions Home health to manage: - PT/OT to eval and treat - Monitor VS routine - Dx. HTN - CHF assessments/education - Urinary assessments - Dx. CKD on LEEANN - Fall precautions - high fall riskProm[facility]ica Fostoria [facility]tr Work Phone: Summary Purpose Family [...] content) DATE CREATED AUTHOR 01/14/2019 Ailyn Zepeda [facility] DATE CREATED AUTHOR AUTHOR'S ORGANIZ ATION 07/24/2021 [facility] DATE CREATED AUTHOR AUTHOR'S ORGANIZ ATION 01/17/2022 [facility] DATE CREATED AUTHOR AUTHOR'S ORGANIZ ATION 12/05/2022 [facility] DATE CREATED AUTHOR AUTHOR'S ORGANIZ ATION 02/10/2023 [facility] DATE CREATED AUTHOR AUTHOR'S ORGANIZ ATION 07/16/2023 [facility] DATE CREATED AUTHOR AUTHOR'S ORGANIZ ATION 07/19/2023 [facility] REASON FOR VISIT (unrecogniz ed section and [...] BE BASED ON THE PRIMARY CLINICAL RECORDS. [facility]. provides no warranty or guarantee of the accuracy or completeness of information in this document.
[2023-07-28] MEDS: FENTANYL 50 MCG/HR PATCH.TD72 100 MCG TD (08:41)
[2023-07-28] MEDS: CEFTAZIDIME 1,000 MG in 0.9 % SODIUM CHLORIDE 50 ML 100 MG IV (09:15)
[2023-07-28] MEDS: OXYCODONE HCL/ACETAMINOPHEN 5MG/325MG 2 TAB PO (11:13)
--- NOTE | 2023-07-28 15:17 | PC.NURSE ---
Report called to Dali at [facility]. Medications, walker, and suitcase given to EMS.
== END 2023-07-28 15:05 | disposition short-term general hospital (02) ==
PROVIDERS: Nurse Practitioner Acute Care; Admitting Provider Family Medicine; PCP Family Medicine; Visit Provider Family Medicine
DX: E87.70 Fluid overload, unspecified (principal); N17.9 Acute kidney failure, unspecified; R53.1 Weakness; E87.5 Hyperkalemia; E87.4 Mixed disorder of acid-base balance; I95.9 Hypotension, unspecified; E83.39 Other disorders of phosphorus metabolism; R79.89 Other specified abnormal findings of blood chemistry; F41.1 Generalized anxiety disorder; M54.16 Radiculopathy, lumbar region; E03.9 Hypothyroidism, unspecified; I27.20 Pulmonary hypertension, unspecified; E55.9 Vitamin D deficiency, unspecified; I12.9 Hypertensive chronic kidney disease with stage 1 through stage 4 chronic kidney disease, or unspecified chronic kidney disease; N18.9 Chronic kidney disease, unspecified; K21.9 Gastro-esophageal reflux disease without esophagitis; Z86.73 Personal history of transient ischemic attack (TIA), and cerebral infarction without residual deficits; E66.9 Obesity, unspecified; I08.1 Rheumatic disorders of both mitral and tricuspid valves; Z68.37 Body mass index [BMI] 37.0-37.9, adult; Z98.84 Bariatric surgery status; Z96.659 Presence of unspecified artificial knee joint; Z79.899 Other long term (current) drug therapy; Z86.16 Personal history of COVID-19
CPT/HCPCS: 36415; 36591; 36600; 80053; 81001; 82805; 83735; 83880; 84100; 84484; 85025; 94640; 94667; 94761; 96365; 96366; 96368; 96375; 97161; 97530; G0378; G0379; J1170

== ENCOUNTER 2023-08-09 14:46 | Outpatient (RCR) | payer MEDICARE, MEDICAID, SELFPAY | END 2023-09-16 16:29 | disposition home or self-care (01) | LOC: OT 14:46 | PROVIDERS: PCP Family Medicine; Visit Provider Family Medicine | DX: I89.0 Lymphedema, not elsewhere classified (principal) | CPT/HCPCS: 97140; 97166; 97535 ==

== ENCOUNTER 2023-08-16 11:20 | Outpatient (RCR) | payer MEDICARE, MEDICAID, SELFPAY ==
[2023-08-10 12:30] LABS: Basophils Percent Auto 0.4 % (0.2-2.0); Eosinophils Absolute Auto 0.1 10^3/uL (0.0-0.7); Eosinophils Percent Auto 1.3 % (0.9-7.0); Hematocrit 31.3 % (36.0-48.0); Hemoglobin 9.6 g/dL (12.0-16.0); Immature Granulocytes Abs Auto 0.05 10^3/uL (0.00-0.03); Immature Granulocytes Pct Auto 0.5 % (0.0-0.5); Lymphocytes Absolute Auto 1.4 10^3/uL (1.2-3.8); Mean Corpuscular HGB Conc 30.7 g/dL (29.9-35.2); Mean Corpuscular Hemoglobin 31.2 pg (26.7-34.0); Mean Corpuscular Volume 101.6 fL (81.0-99.0); Mean Platelet Volume 10.2 fL (9.5-13.5); Monocytes Absolute Auto 0.6 10^3/uL (0.3-0.8); Neutrophils Absolute Auto 7.2 10^3/uL (1.4-6.5); Neutrophils Percent Auto 76.8 % (43.0-75.0); Platelet Count 257 10^3/uL (150-450); Red Blood Count 3.08 10^6/uL (4.20-5.40); Red Cell Distribution Width 12.5 % (11.0-15.0); White Blood Count 9.4 10^3/uL (4.0-11.0)
[2023-08-10 12:42] LABS: Alanine Aminotransferase 25 U/L (14-59); Albumin Globulin Ratio 0.9; Albumin Level 3.5 g/dL (3.4-5.0); Alkaline Phosphatase 260 U/L (46-116); Anion Gap 12.6; Aspartate Amino Transferase 24 U/L (15-37); BUN Creatinine Ratio 29.9; Bilirubin Total 0.3 mg/dL (0.2-1.0); Calcium 8.5 mg/dL (8.5-10.1); Carbon Dioxide 28.7 mmol/L (21.0-32.0); Chloride 103 mmol/L (98-107); Estimated GFR (African America 32 (>=60); Estimated GFR (Non-African Ame 26 (>=60); Globulin 3.7 g/dL; Glucose 91 mg/dL (74-106); Potassium 4.3 mmol/L (3.5-5.1); Sodium 140 mmol/L (136-145); Total Protein 7.2 g/dL (6.4-8.2)
[2023-08-10 12:44] VITALS: BP 138/94; PULSE 62; RESP 18; TEMP 37.2; O2SAT 99
[2023-08-16] MEDS: HEPARIN SODIUM (PORCINE) PF LOCK FLUSH 500 UNIT/5 ML SYRINGE IV (11:10)
[2023-08-16 11:20] VITALS: BP 143/76; PULSE 67; RESP 18; TEMP 36.6; O2SAT 96
--- NOTE | 2023-08-16 11:26 | PC.NURSE ---
1050 arrival ambulatory with walker to chair 3. rt chest port accessed using 19ga 1 james needle, excellent blood return, labs drawn, sent to lab, port flushed with 20 ml of ns followed by hep lock solution, deaccessed site overed with bandaid. 1115 assisted patient to car to load walker.
[2023-08-16 11:34] LABS: Basophils Percent Auto 0.4 % (0.2-2.0); Eosinophils Absolute Auto 0.2 10^3/uL (0.0-0.7); Eosinophils Percent Auto 2.3 % (0.9-7.0); Hematocrit 29.9 % (36.0-48.0); Immature Granulocytes Abs Auto 0.03 10^3/uL (0.00-0.03); Immature Granulocytes Pct Auto 0.4 % (0.0-0.5); Lymphocytes Absolute Auto 1.3 10^3/uL (1.2-3.8); Lymphocytes Percent Auto 17.6 % (20.5-60.0); Mean Corpuscular HGB Conc 30.1 g/dL (29.9-35.2); Mean Corpuscular Hemoglobin 30.7 pg (26.7-34.0); Mean Platelet Volume 9.8 fL (9.5-13.5); Monocytes Absolute Auto 0.6 10^3/uL (0.3-0.8); Monocytes Percent Auto 7.7 % (1.7-12.0); Neutrophils Absolute Auto 5.2 10^3/uL (1.4-6.5); Neutrophils Percent Auto 71.6 % (43.0-75.0); Platelet Count 233 10^3/uL (150-450); Red Blood Count 2.93 10^6/uL (4.20-5.40); White Blood Count 7.3 10^3/uL (4.0-11.0)
[2023-08-16 11:50] LABS: Alanine Aminotransferase 20 U/L (14-59); Albumin Globulin Ratio 0.9; Albumin Level 3.3 g/dL (3.4-5.0); Alkaline Phosphatase 241 U/L (46-116); Anion Gap 12.3; Aspartate Amino Transferase 22 U/L (15-37); BUN Creatinine Ratio 26.5; Bilirubin Total 0.3 mg/dL (0.2-1.0); Calcium 8.4 mg/dL (8.5-10.1); Carbon Dioxide 28.2 mmol/L (21.0-32.0); Chloride 104 mmol/L (98-107); Estimated GFR (African America 34 (>=60); Estimated GFR (Non-African Ame 28 (>=60); Globulin 3.6 g/dL; Glucose 83 mg/dL (74-106); Potassium 4.5 mmol/L (3.5-5.1); Sodium 140 mmol/L (136-145); Total Protein 6.9 g/dL (6.4-8.2)
--- NOTE | 2023-08-23 12:19 | PC.NURSE ---
1205: Pt. to [facility] amb. for weekly blood draw. Using sterile technique, #19 gauge Stovall needle used to access right ant. chest port. Flushes easily with good blood return on aspiration. Blood obtained for labs. Port flushed with saline and Heparin flush. Port de-accessed. 2x2 applied over site. Pt. tolerated with min. c/o 1215: Pt. d/c'd amb. to home.
[2023-08-23 14:08] LABS: Basophils Percent Auto 0.3 % (0.2-2.0); Eosinophils Absolute Auto 0.1 10^3/uL (0.0-0.7); Eosinophils Percent Auto 1.3 % (0.9-7.0); Hemoglobin 9.7 g/dL (12.0-16.0); Immature Granulocytes Abs Auto 0.04 10^3/uL (0.00-0.03); Immature Granulocytes Pct Auto 0.5 % (0.0-0.5); Lymphocytes Absolute Auto 1.4 10^3/uL (1.2-3.8); Lymphocytes Percent Auto 18.1 % (20.5-60.0); Mean Corpuscular HGB Conc 31.3 g/dL (29.9-35.2); Mean Corpuscular Hemoglobin 31.3 pg (26.7-34.0); Mean Platelet Volume 9.5 fL (9.5-13.5); Monocytes Absolute Auto 0.5 10^3/uL (0.3-0.8); Monocytes Percent Auto 6.1 % (1.7-12.0); Neutrophils Absolute Auto 5.8 10^3/uL (1.4-6.5); Neutrophils Percent Auto 73.7 % (43.0-75.0); Platelet Count 305 10^3/uL (150-450); Red Cell Distribution Width 13.2 % (11.0-15.0); White Blood Count 7.9 10^3/uL (4.0-11.0)
[2023-08-23 14:18] LABS: Alanine Aminotransferase 23 U/L (14-59); Albumin Globulin Ratio 0.9; Albumin Level 3.4 g/dL (3.4-5.0); Alkaline Phosphatase 244 U/L (46-116); Anion Gap 12.4; Aspartate Amino Transferase 24 U/L (15-37); BUN Creatinine Ratio 30.4; Bilirubin Total 0.3 mg/dL (0.2-1.0); Calcium 8.3 mg/dL (8.5-10.1); Carbon Dioxide 27.2 mmol/L (21.0-32.0); Chloride 100 mmol/L (98-107); Estimated GFR (African America 34 (>=60); Estimated GFR (Non-African Ame 28 (>=60); Globulin 3.6 g/dL; Glucose 86 mg/dL (74-106); Potassium 4.6 mmol/L (3.5-5.1); Sodium 135 mmol/L (136-145)
== END 2023-08-24 23:59 | disposition home or self-care (01) ==
LOC: INF 11:20
PROVIDERS: PCP Family Medicine; Visit Provider Family Medicine
DX: I10 Essential (primary) hypertension (principal); D64.9 Anemia, unspecified; E87.1 Hypo-osmolality and hyponatremia
CPT/HCPCS: 36591; 80053; 83930; 85025

== ENCOUNTER 2023-09-15 12:02 | Outpatient (OUT) | payer MEDICARE, MEDICAID, SELFPAY ==
--- NOTE | 2023-09-15 12:10 | XR_ITS ---
The [address] [address] Patient Name: JOSE CLEMENTS MRN: [id number] date: 1960 Sex: F Assigned Patient Location: [facility] Current Patient Location: [facility] Accession/Order Number: [id number] Exam Date: 09/15/2023 12:20 Report Date: 09/15/2023 15:01 At the request of: ANGLE SANTANA Procedure: XR knee LT 2V PROCEDURE: XR femur LT 2V and XR knee LT 2 view and XR tibia / fibula LT 2 view DATE: 09/15/2023 11:20 AM CDT COMPARISONS: [The images from 11/04/2022. Left knee images also from 11/04/2022. CLINICAL INDICATION: Pain In Left Leg M79.605 FINDINGS: There is no evidence of fractures or other acute osseous abnormalities. There is diffuse bone demineralization. No significant left hip degenerative changes. There is marked narrowing of the medial femoral tibial joint space compartment. There is moderate tricompartmental spurring. There is small left knee joint effusion. These findings are stable from 11/04/2022. There is a 1 cm bone island of the distal metaphysis of the tibia. The ankle mortise appears intact. The tibia/fibula osseous structures show no other abnormalities. XR/XR knee LT 2V IMPRESSION: 1. No fractures of the left femur, knee or tibia/fibula 2. Bone demineralization also seen on previous images 3. Moderate to severe knee degenerative changes especially the medial compartment, stable. Electronically authenticated by: CAROLINE WALKER Date: 09/15/2023 15:01
--- NOTE | 2023-09-15 12:10 | XR_ITS ---
The [address] [address] Patient Name: JOSE CLEMENTS MRN: [id number] date: 1960 Sex: F Assigned Patient Location: [facility] Current Patient Location: [facility] Accession/Order Number: [id number] Exam Date: 09/15/2023 12:20 Report Date: 09/15/2023 14:58 At the request of: ANGLE SANTANA Procedure: XR femur LT 2V PROCEDURE: XR femur LT 2V and XR knee LT 2 view and XR tibia / fibula LT 2 view DATE: 09/15/2023 11:20 AM CDT COMPARISONS: [The images from 11/04/2022. Left knee images also from 11/04/2022. CLINICAL INDICATION: Pain In Left Leg M79.605 FINDINGS: There is no evidence of fractures or other acute osseous abnormalities. There is diffuse bone demineralization. No significant left hip degenerative changes. There is marked narrowing of the medial femoral tibial joint space compartment. There is moderate tricompartmental spurring. There is small left knee joint effusion. These findings are stable from 11/04/2022. There is a 1 cm bone island of the distal metaphysis of the tibia. The ankle mortise appears intact. The tibia/fibula osseous structures show no other abnormalities. XR/XR femur LT 2V IMPRESSION: 1. No fractures of the left femur, knee or tibia/fibula 2. Bone demineralization also seen on previous images 3. Moderate to severe knee degenerative changes especially the medial compartment, stable. Electronically authenticated by: CAROLINE WALKER Date: 09/15/2023 14:58
--- NOTE | 2023-09-15 12:10 | XR_ITS ---
The [address] [address] Patient Name: JOSE CLEMENTS MRN: [id number] date: 1960 Sex: F Assigned Patient Location: [facility] Current Patient Location: [facility] Accession/Order Number: [id number] Exam Date: 09/15/2023 12:20 Report Date: 09/15/2023 14:59 At the request of: ANGLE SANTANA Procedure: XR tibia fibula LT 2V PROCEDURE: XR femur LT 2V and XR knee LT 2 view and XR tibia / fibula LT 2 view DATE: 09/15/2023 11:20 AM CDT COMPARISONS: [The images from 11/04/2022. Left knee images also from 11/04/2022. CLINICAL INDICATION: Pain In Left Leg M79.605 FINDINGS: There is no evidence of fractures or other acute osseous abnormalities. There is diffuse bone demineralization. No significant left hip degenerative changes. There is marked narrowing of the medial femoral tibial joint space compartment. There is moderate tricompartmental spurring. There is small left knee joint effusion. These findings are stable from 11/04/2022. There is a 1 cm bone island of the distal metaphysis of the tibia. The ankle mortise appears intact. The tibia/fibula osseous structures show no other abnormalities. XR/XR tibia fibula LT 2V IMPRESSION: 1. No fractures of the left femur, knee or tibia/fibula 2. Bone demineralization also seen on previous images 3. Moderate to severe knee degenerative changes especially the medial compartment, stable. Electronically authenticated by: CAROLINE WALKER Date: 09/15/2023 14:59
--- OUTSIDE RECORDS SUMMARY | 2023-09-15 12:11 | XMS_ITS | CCD ---
Author Organization [facility] Care Team Providers Care Lunchroom Operator Name Role Phone NIRMAL LEWIS Admitting [...] Referring Unavailable ANGLE SANTANA Primary Care Unavailable Raeann Kirkpatrick Unavailable Sue Leiva Unavailable MD Angle Santana Primary Care Provider [phone] W[facility] Helm Emergency Provider ROBERT JOHNSTON Attending Unavailable ROBERT JOHNSTON Admitting Unavailable ESTHER .DR BARBOUR Primary Care Unavailable DR BUNNY ZEPEDA [...] JODY Consulting Unavailable ALEJO, DANICA Consulting Unavailable CARLOS THOMPSON Consulting Unavailable DIAB ., NIKKIE Consulting Unavailable HOY ., DR BARBOUR Primary Care Unavailable MARKER ., DR JURADO Attending Unavailable MARKER ., DR JURADO Admitting Unavailable MARKER ., DR JURADO Consulting Unavailable ANASTASIYA, JITENDRA Consulting Unavailable JUDAH CHARLES Consulting Unavailable ALDO MOORE Consulting Unavailable HOY ., DR BARBOUR Admitting [...] DR CARLOS Castillo Consulting Unavailable LAKSHMIPATHY ., NARENDANDRZEJATH Attending Yumiko vailable LAKSHMIPATHY ., NARENDRANATH Admitting [...] BARBOUR Attending Unavailable LISA, ZANDRA Attending Unavailable LISA, ZANDRA Admitting Unavailable HOY ., DR BARBOUR Primary [...] ., NARENDRANATH Consulting Yumiko vailable LAKSHMIPATHY ., NARENDANDRZEJATH Attending Yumiko vailable LAKSHMIPATHY ., NARENDANDRZEJATH Admitting Yumiko vailable HOY ., DR BARBOUR [...] HARP ., DR ANIKA Sanchez Attending Unavailable AGUBOSIMBRIAN Consulting Unavailable HOY ., DR BARBOUR Primary [...] HARP ., DR ANIKA Sanchez Admitting Unavailable HAPR ., DR ANIKA Sanchez Attending Unavailable HOY ., DR BARBOUR Admitting Unavailable HOY ., DR BARBOUR Primary Care Unavailable HOY ., DR BARBOUR Consulting Unavailable HOY ., DR BARBOUR Attending Unavailable TAMLYN ., FELECIA Attending Unavailable TAMLYN ., FELECIA Admitting Unavailable JASPREET II, LIZETTE [...] Unavailable TAMLYN ., FELECIA Attending Unavailable TAMLYN .FELECIA Admitting Unavailable HOY ., DR BARBOUR Primary Care Unavailable HOY ., DR BARBOUR Admitting Unavailable HOY ., DR BARBOUR Primary Care Unavailable HOY ., DR BARBOUR Attending Unavailable HOY ., DR BARBOUR Consulting Unavailable VITALEAPRIL RASCON Consulting Unavailable HOY ., DR BARBOUR Consulting [...] Trujillo Consulting Unavailable HOY ., DR BARBOUR Admitting Unavailable HOY ., DR BARBOUR Primary Care Unavailable HOY ., DR BARBOUR Attending Unavailable HOY ., DR BARBOUR Consulting Unavailable MICHELE, DR MIGUEL Calderon Consulting Unavailabl e JC ., CAR BECK Consulting UnavailSHAIKH Deepak Figueroa Consulting Unavailable HOY [...] Unavailable HOY ., DR BARBOUR Attending Unavailable MD Angle Santana Primary Care Provider [phone] MD Beatriz Oh Admit Provider DO Jim Randhawa Attending Provider MD [place] Other Provider Jim Randhawa Attending Unavailable Beatriz Oh Admolena Unavailable [place] Consulting Unavailable Angle Santana Primary Care Unavailable Favian Helm Admitting Unavailable Favian Helm Attending Unavailable Angle Santana Primary Care Unavailable STEPHANIE COOPER Referring Unavailable SHERLY ROSADO Attending Unavailable SHERLY ROSADO Referring Unavailable GANGWANI, RAYRAY HARP Referring Unavailab le BARAZI, MACIE Attending Unavailable MOUKARBEL, BENJIE Attending Unavailable LISAZANDRA Attending Unavailable JOANA, RHIANNON Attending Unavailable MOUKARBEL, BENJIE Attending Unavailable SONNY, DUNCAN Attending Unavailable ALONZOSHERLY GARCIA Referring Unavailable MOUKARBEL, BENJIE Attending Unavailable PIRKL, RACHEL Referring Unavailable JOANA, RHIANNON Attending Unavailable ALGHOTHANI, STEPHANIE Referring Unavailable GANGWANI, RAYRAY HARP Referring Unavailab le MOUKARBEL, BENJIE Admitting Unavailable MOUKARBEL, BENJIE Attending Unavailable GANGWANI, RAYRAY HARP Referring Unavailab le HOY, ANGLE Referring Unavailable GANGWANI, RAYRAY HARP Attending Unavailab le YNES, RADHA Admitting Unavailable GANGWANI, RAYRAY HARP Consulting Unavailab le ZENZ, JUDAH Referring Unavailable Allergies Allergy Classification Reported Allergen(s) Allergy Type Date of Onset Reaction(s) Facility (11 sources) Amoxicillin Drug Allergy 10-29-19 23 Unknown, [facility] (5 sources) Amoxicillin / Clavulanate Drug Allergy Unknown [facility] [place] Other (12 sources) Povidone-Iodine; Translations: [POVIDONE-IODINE] Drug Allergy 10-11-19 23 Unknown, [facility] (9 sources) Sulfamethoxazole / Trimethoprim Drug Allergy Unknown [facility] [place] Other (1 source) sulfaSALAzine Drug Allergy Unknown [facility] [place] Other (7 sources) Amoxicillin / Clavulanate Drug Allergy 11-26-19 13 Unknown [facility] Repository (1 source) Bumetanide Drug Allergy 03-22-20 16 [facility] Repository (1 source) Cephalexin Drug Allergy 01-15-20 14 [facility] Repository (2 sources) gabapentin; Translations: [GABAPENTIN] Drug Allergy 08-19-19 22 [facility] Repository (3 sources) Povidone-Iodine Drug Allergy 11-26-19 13 [facility] Repository (1 source) pregabalin; Translations: [LYRICA] Drug Allergy 08-19-19 22 [facility] Repository (6 sources) Sulfonamides (Antibiotic); Translations: [SULFA (SULFONAMIDE ANTIBIOTICS)] Drug allergy (disorder) 11-26-19 13 Rash [facility] Repository (1 source) Sulfonamide Drug allergy Unknown Alereon [facility] [place] Other (7 sources) Substance with sulfonamide structure and antibacterial mechanism of action (substance) Drug allergy Unknown [facility] Other (3 sources) Clavulanate; Translations: [clavulanic acid] Drug Allergy 10-29-19 23 Diarrhea [facility] (1 source) Ciprofloxacin Drug Allergy 05-26-20 [facility] Repository (1 source) Amoxicillin Drug Allergy 04-04-20 23 [facility] Repository (1 source) Povidone-Iodine Drug Allergy 04-04-20 [facility] Repository (1 source) Sulfamethoxazole Drug Allergy 04-04-20 23 [facility] Repository (1 source) Sulfonamides (Antibiotic) Drug allergy (disorder) 04-04-20 [facility] Repository (1 source) Trimethoprim Drug Allergy 04-04-20 [facility] Repository (1 source) Cephalexin; Translations: [CEPHALEXIN] Drug Allergy 06-13-20 14 [facility] Repository (1 source) Ciprofloxacin; Translations: [CIPROFLOXACIN] Drug Allergy 10-11-19 23 [facility] Repository (1 source) Iodine; Translations: [IODINE] Drug Allergy 11-28-19 23 [facility] Repository (1 source) pregabalin; Translations: [PREGABALIN] Drug Allergy 10-11-19 23 [facility] Repository (1 source) Sulfamethoxazole / Trimethoprim; Translations: [SULFAMETHOXAZOLE-T RIMETHOPRIM] Drug Allergy 11-28-19 23 [facility] Repository (1 source) AMOXICILLIN-POT CLAVULANATE; Translations: [AMOXICILLIN-POT CLAVULANATE] Propensity to adverse reactions to drug (disorder) 06-13-20 14 [facility] Repository Medications Current Medications Medication Drug Class(es) [...] 2022 11:00pm [facility] 1 capsule [facility] twelve hours DULoxetine HCl 60 MG [...] oral capsule (1 source) Anti-epileptic Agent Start: take 100 mg by mouth three times [...] mg oral tablet (13 sources) l-Thyroxine Start: take 100 ug by mouth once daily [...] Start: 10-28-2022 take 1 capsule by mo [facility] once daily Linaclotide (Linzess) 290 mcg [...] 2023 12:00am take 1 tablet by joseph th [...] 1 tablet by joseph th once daily Pantoprazole (Protonix) 20 mg Tablet,Delayed [...] 2018 6:59am take 2 tablets by mo [facility] every twenty-four hours Primidone 50 MG [...] take 1 tablet by joseph th every six hours tiZANidine HCl 4 MG [...] Start: 08-31-2018 take 2 tablets by mo [facility] every four to six hours Oxycodone-Acetaminophen (Percocet) 5-325 mg Tablet Active 2 TAB PO EVERY 4-6 HOURS August 31, 2018 1:00am take 2 tablets by mo uth every four hours as needed oxyCODONE-Acetaminophen 5-325 MG 2 table t as needed Orally every 4 hrs PRN Active [id number] 200 actuat albuterol 0.09 mg/actuat metered dose [...] meals Orally Four times a day Active Cg-Xyijerb-Vfg-Iron Fm-Fa-Vitk (Multi For Her) 18 mg iron-600 mcg-80 mcg Tablet (2 sources) Start: 08-31-2018 End: 06-30-2023 take 1 tablet by mouth once daily Wj-Zfukkoz-Yam-Iron Fm-Fa-Vitk (Multi For Her) 18 mg iron-600 mcg-80 mcg Tablet Discontinued 1 TAB PO Daily August 31, 2018 12:00am June 30, 2023 12:26am Start: 08-31-2018 take 1 tablet by joseph th once daily Bp-Ypcqynq-Ccq-Iron Fm-Fa-Vitk (Multi For Her) 18 mg iron-600 [...] Date Episodic/Chronic Acute and unspecified renal failure (6 sources) Acute kidney failure, unspecified; Translations: [Acute [...] disease (3 sources) Atherosclerotic heart disease of [place] coronary artery without angina pectoris; 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] Onset: 3 Chronic [...] medical drugs (1 source) Adverse effect of awjspozqpjs-ulpexnzdzp-s nzyme inhibitors, initial encounter; Translations: [ADVERSE EFFECT [...] [Essential (primary) hypertension] Onset: 3 09-04-2018 Chronic Headache; including migraine (13 sources) Refractory migraine [...] aftercare (2 sources) Polypharmacy ; Translations: [Other buttermaker (current) drug therapy] 09-04-2018 Episodic Other aftercare (1 source) Other [employer]termaker (current) drug therapy; 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] Onset: 3 Episodic Other [...] UNS STAIRS STEPS INIT] Onset: 08-17-2022 Episodic Fluid and electrolyte disorders (20 sources) Hypervolemia; Translations: [Fluid overload, unspecified] Onset: 06-16-2021 Resolved: 06-16-2021 Episodic Fracture of upper limb (4 sources) [...] Value Interpretation Reference Range Facility Office Visiton 08-16-2023 Follow-up visit [id number] Loren Moser 1960 F Date Provider Department Center 08/16/2023 Peng6-MACIE GARCIA [facility] Family History Family history unknown: Yes Level of Service:28048 LA OFFICE/OUTPATIENT ESTABLISHED MOD MDM 30 MIN Normal [facility] Documentationon 08-07-2023 Documentation [id number] ButschLoren jones 1960 F Date Provider Department Center 08/07/2023 [id number] Family History Family history unknown: Yes Reason for Visit and Comments: HF inpatient satisfaction survey sent. [Other] [facility] 36on 08-04-2023 36 DC to home on 08/03/19 024 Spoke to pt on 08/04/2023 Med rec completed with pts Delio Pt will need to reschedule appt with cardiology, she will call [place] [facility] to reschedule and will try to get in next week [facility] 30on 08-03-2023 30 Problem: Pain - Adul t Goal: Verbalizes/displays adequate comfort level or baseline comfort level Outcome: Progressing On going pain being managed with pain medication and positioning. Problem: Safety - Adult Goal: Free from fall injury Outcome: Progressing Flowsheets (Taken 08/03/2023 0756) Free from fall injury: Assess patient frequently for physical needs Identify cognitive and physical deficits and behaviors that affect risk of falls . Safety measures in place. Calls out appropriately. Problem: Chronic Conditions and Co-morbidities Goal: Patient's chronic conditions and co-morbidity symptoms are monitored and maintained or improved Outcome: Progressing Problem: Fluid retention/overload Goal: Patient will be able to identify signs and symptoms of fluid retention Outcome: Progressing Strict Intake and output. Fluid restriction Problem: Metabolic/Fluid and Electrolytes - Adult Goal: Electrolytes maintained within normal limits Recent Flowsheet Documentation Taken 08/03/2023 0735 by Eliz Steward RN Electrolytes maintained within normal limits: Monitor labs and assess patient for signs and symptoms of electrolyte imbalances Administer electrolyte replacement as ordered Monitor response to electrolyte replacements, including repeat lab results as appropriate Normal [facility] BASIC METABOLIC PANELon Anion gap [Moles/Vol] 14 mmol/L Normal 7-20 [facility] Comment on above: Performed By: #### L [id number] #### [facility] ([facility]) [address] [place] [address] Calcium [Mass/Vol] 8.6 mg/dL Normal 8.6-10.3 [facility] Comment on above: Performed By: #### L [id number] #### [facility] [address] [place] [address] Chloride [Moles/Vol] 96 mmol/L Low 98-107 [facility] Comment on above: Performed By: #### L [id number] #### [facility] ([facility]) [address] [place] [address] CO2 [Moles/Vol] 30 mmol/L Normal 21-31 [facility] Comment on above: Performed By: #### L [id number] #### [facility] ([facility]) [address] [place] [address] Creatinine [Mass/Vol] 2.67 mg/dL High 0.60-1.20 [facility] Comment on above: Performed By: #### L [id number] #### [facility] ([facility]) [address] [place] [address] GLOMERULAR FILTRATION RATE ML/MIN/1.73 SQ M.PREDICTED 19.7 mL/min/1.73m*2 Low >60.0 [facility] Comment on above: Result Comment: The [facility]???s estimated glomerular filtration rate (eGFR) will no longer include consideration of race in its calculation. The National Kidney Foundation???s eGFR Task Force developed new recommendations for the estimation of the glomerular filtration rate in the [place] They recommend immediate implementation of the new equation refit without the race variable in all laboratories because the calculation does not include race. In addition to not including race in the calculation and reporting, it included diversity in its development, and has acceptable performance characteristics and potential consequences that do not disproportionately affect any one group of individuals. Performed By: #### L [id number] #### [facility] ([facility]) [address] [place] [address] Glucose [Mass/Vol] 78 mg/dL Normal 70-100 [facility] Comment on above: Performed By: #### L [id number] #### [facility] ([facility]) [address] [place] [address] Potassium [Moles/Vol] 3.9 mmol/L Normal 3.5-5.1 [facility] Comment on above: Performed By: #### L [id number] #### [facility] ([facility]) [address] [place] [address] Sodium [Moles/Vol] 136 mmol/L Normal 136-145 [facility] Comment on above: Performed By: #### L [id number] #### [facility] ([facility]) [address] [place] [address] Urea nitrogen [Mass/Vol] 94 mg/dL High 7- [facility] Comment on above: Performed By: #### L [id number] #### [facility] ([facility]) [address] [place] [address] UREA NITROGEN/CREATININE (MASS RATIO) IN SER/PLAS 35.2 Normal [facility] Comment on above: Performed By: #### L [id number] #### [facility] ([facility]) [address] [place] [address] CBC WITH AUTO DIFFERENTIALon 08-03-2023 Basophils (Bld) [#/Vol] 0.03 10*3/uL Normal 0.00-0.20 [facility] Comment on above: Performed By: #### L [id number] #### [facility] ([facility]) [address] [place] [address] Basophils/100 WBC (Bld) 0.3 % Normal 0.0-1.0 [facility] Comment on above: Performed By: #### L [id number] #### [facility] ([facility]) [address] [place] [address] Eosinophils (Bld) [#/Vol] 0.14 10*3/uL Normal 0.00-0.50 [facility] Comment on above: Performed By: #### L [id number] #### [facility] [address] [facility] [place] [address] Eosinophils/100 WBC (Bld) 1.4 % Normal 0.0-6.0 [facility] Comment on above: Performed By: #### L [id number] #### [facility] ([facility]) [address] [place] [place] [address] Erythrocyte distribution width (RBC) [Ratio] 12.7 % Normal 11.5-15.0 [facility] Comment on above: Performed By: #### L [id number] #### [facility] ([facility]) [address] [place] [address] ERYTHROCYTE MEAN CORPUSCULAR HEMOGLOBIN CONCENTRATION (G/DL) BY AUTOMATED 31.6 g/dL Low 32.0-35.0 [facility] Comment on above: Performed By: #### L [id number] #### [facility] ([facility]) [address] [place] [address] Hematocrit (Bld) [Volume fraction] 29.7 % Low 36.0-48.0 [facility] Comment on above: Performed By: #### L [id number] #### [facility] ([facility]) [address] [place] [address] Hemoglobin (Bld) [Mass/Vol] 9.4 g/dL Low 12.0-15.0 [facility] Comment on above: Performed By: #### L [id number] #### [facility] ([facility]) [address] [place] [place] [address] Immature granulocytes (Bld) [#/Vol] 0.06 10*3/uL Normal 0.00-0.20 [facility] Comment on above: Performed By: #### L [id number] #### [facility] ([facility]) [address] [place] [address] Immature granulocytes/100 WBC (Bld) 0.6 % Normal 0.0-1.0 [facility] Comment on above: Performed By: #### L [id number] #### [facility] [address] [place] [address] Lymphocytes (Bld) [#/Vol] 0.79 10*3/uL Low 1.20-4.00 [facility] Comment on above: Performed By: #### L [id number] #### [facility] [address] [place] [address] Lymphocytes/100 WBC (Bld) 8.0 % Low 20.0-45.0 [facility] Comment on above: Performed By: #### L [id number] #### [facility] ([facility]) [address] [place] [address] MCH (RBC) [Entitic mass] 31.4 pg Normal 27.0-33.0 [facility] Comment on above: Performed By: #### L [id number] #### [facility] ([facility]) [address] [place] [address] MCV (RBC) [Entitic vol] 99.3 fL High 82.0-98.0 [facility] Comment on above: Performed By: #### L [id number] #### [facility] ([facility]) [address] [place] [address] Monocytes (Bld) [#/Vol] 0.46 10*3/uL Normal 0.10-1.00 [facility] Comment on above: Performed By: #### L [id number] #### [facility] [address] [place] [address] Monocytes/100 WBC (Bld) 4.6 % Low 5.0-12.0 [facility] Comment on above: Performed By: #### L [id number] #### [facility] [address] [place] [address] Neutrophils (Bld) [#/Vol] 8.42 10*3/uL High 1.60-7.60 [facility] Comment on above: Performed By: #### L [id number] #### [facility] ([facility]) [address] [place] [address] Neutrophils/100 WBC (Bld) 85.1 % High 40.0-72.0 [facility] Comment on above: Performed By: #### L [id number] #### [facility] [address] [place] [address] NRBC (PER 100 WBCS) BY AUTOMATED COUNT 0.0 % Normal 0 [facility] Comment on above: Performed By: #### L [id number] #### [facility] ([facility]) [address] [place] [address] PLATELETS (10*3/UL) IN BLOOD AUTOMATED COUNT 211 10*3/uL Normal 150-400 [facility] Comment on above: Performed By: #### L [id number] #### [facility] ([facility]) [address] [place] [address] RBC (Bld) [#/Vol] 2.99 10*6/uL Low 3.80-5.00 [facility] Comment on above: Performed By: #### L [id number] #### [facility] ([facility]) [address] [place] [address] WBC (Bld) [#/Vol] 9.90 10*3/uL Normal 4.00-10.60 [facility] Comment on above: Performed By: #### L [id number] #### [facility] ([facility]) [address] [place] [address] 30on --2023 30 Daily Case Managemen t Update Multidisciplinary rounds have been completed. Barriers to Discharge: await medical stability: continue diuresis, Change Lasix IV->Bumex oral, Creatine 2.73<-2.68, Optimize HF status, Anticipate medically ready soon. Dc Plan: await PT/OT evaluations/ordered today, if SNF placement is needed/precert would be required. HF follow-up appointment has been made. Diet: Dietary Orders (From admission, onward) Start Ordered 07/29/23 1252 Regular Diet Heart Healthy/HTN, CABG,Stroke, (2gNA, low fat, low cholesterol); 2g/Low Potassium; 240ml/tray Diet effective now Question Answer Comment Room Service? Yes Fat restriction: Heart Healthy/HTN, CABG,Stroke, (2gNA, low fat, low cholesterol) Potassium restriction: 2g/Low Potassium Fluid restriction total / 24h: 240ml/tray 07/29/23 1251 Physician Expected Discharge Date: 07/31/2023 Discharge Delays: PT Six Click Score: 20 OT Six Click Score: PT Recommendations: OT Recommendations: New Consults: Consult Orders (From admission, onward) Start Ordered 07/28/231918 Inpatient consult to Cardiology Once Specialty: Cardiology Provider: (Not yet assigned) Question Answer Comment Consulting Group CARDIOLOGY TEAM Reason for Consult? chf exacerbation Level of Consultation Consultation and Management 07/28/23 191 Ancillary Consults (From admission, onward) Start Ordered 07/28/23 191 Inpatient consult to Social Work Once Provider: (Not yet assigned) Question Answer Comment Select all services needed for the patient Nursing Home Facility (30 day convalescent stay) Please indicate your approval for this care by adding your name here: RACHEL COHEN 07/28/23 1921 Therapy Orders (From admission, onward) Start Ordered 08/01/23 1008 PT eval and treat Until therapy completed Question: Reason for PT? Answer: Discharge Planning 08/01/23 1007 08/01/23 1008 OT eval and treat Until therapy completed Question: Reason for OT? Answer: Discharge Planning 08/01/23 1007 Normal [facility] 30 Problem: Pain - Adul t Goal: Verbalizes/displays adequate comfort level or baseline comfort level Outcome: Progressing Problem: Safety - Adult Goal: Free from fall injury Outcome: Progressing Flowsheets (Taken 08/02/2023 0821) Free from fall injury: Assess patient frequently for physical needs Identify cognitive and physical deficits and behaviors that affect risk of falls Problem: Chronic Conditions and Co-morbidities Goal: Patient's chronic conditions and co-morbidity symptoms are monitored and maintained or improved Outcome: Progressing Problem: Metabolic/Fluid and Electrolytes - Adult Goal: Electrolytes maintained within normal limits Recent Flowsheet Documentation Taken 08/02/2023812 by Eliz Steward RN Electrolytes maintained within normal limits: Monitor labs and assess patient for signs and symptoms of electrolyte imbalances Administer electrolyte replacement as ordered Monitor response to electrolyte replacements, including repeat lab results as appropriate Goal: Hemodynamic stability and optimal renal function maintained Recent Flowsheet Documentation Taken 08/02/2023812 by Eliz Steward RN Hemodynamic stability and optimal renal function maintained: Monitor labs and assess for signs and symptoms of volume excess or deficit Normal [facility] BASIC METABOLIC PANELon 02-0 Anion gap [Moles/Vol] 10 mmol/L Normal 7-20 [facility] Comment on above: Performed By: #### L [id number] #### [facility] ([facility] [address] [place] [address] Calcium [Mass/Vol] 8.5 mg/dL Low 8.6-10.3 [facility] Comment on above: Performed By: #### L [id number] #### [facility] ([facility]) [address] [place] [address] Chloride [Moles/Vol] 96 mmol/L Low 98-107 [facility] Comment on above: Performed By: #### L [id number] #### [facility] ([facility]) [address] [place] [address] CO2 [Moles/Vol] 33 mmol/L High 21-31 [facility] Comment on above: Performed By: #### L [id number] #### [facility] [address] [place] [address] Creatinine [Mass/Vol] 2.73 mg/dL High 0.60-1.20 [facility] Comment on above: Performed By: #### L [id number] #### [facility] ([facility] [address] [place] [address] GLOMERULAR FILTRATION RATE ML/MIN/1.73 SQ M.PREDICTED 19.2 mL/min/1.73m*2 Low >60.0 [facility] Comment on above: Result Comment: The [facility]???s estimated glomerular filtration rate (eGFR) will no longer include consideration of race in its calculation. The National Kidney Foundation???s eGFR Task Force developed new recommendations for the estimation of the glomerular filtration rate in the [place] They recommend immediate implementation of the new equation refit without the race variable in all laboratories because the calculation does not include race. In addition to not including race in the calculation and reporting, it included diversity in its development, and has acceptable performance characteristics and potential consequences that do not disproportionately affect any one group of individuals. Performed By: #### L [id number] #### [facility] ([facility]) [address] [place] [address] Glucose [Mass/Vol] 114 mg/dL High 70-100 [facility] Comment on above: Performed By: #### L [id number] #### [facility] ([facility]) [address] [place] [address] Potassium [Moles/Vol] 3.7 mmol/L Normal 3.5-5.1 [facility] Comment on above: Performed By: #### L [id number] #### [facility] ([facility]) [address] [place] [address] Sodium [Moles/Vol] 135 mmol/L Low 136-145 [facility] Comment on above: Performed By: #### L [id number] #### [facility] ([facility]) [address] [place] [address] Urea nitrogen [Mass/Vol] 90 mg/dL High 7-25 [facility] Comment on above: Performed By: #### L [id number] #### [facility] ([facility]) [address] [place] [address] UREA NITROGEN/CREATININE (MASS RATIO) IN SER/PLAS 33.0 Normal [facility] Comment on above: Performed By: #### L [id number] #### [facility] ([facility]) [address] [place] [address] CBC WITH AUTO DIFFERENTIALon 08-02-2023 Basophils (Bld) [#/Vol] 0.03 10*3/uL Normal 0.00-0.20 [facility] Comment on above: Performed By: #### L [id number] #### [facility] ([facility]) [address] [place] [address] Basophils/100 WBC (Bld) 0.4 % Normal 0.0-1.0 [facility] Comment on above: Performed By: #### L [id number] #### [facility] [address] [place] [address] Eosinophils (Bld) [#/Vol] 0.13 10*3/uL Normal 0.00-0.50 [facility] Comment on above: Performed By: #### L [id number] #### [facility] ([facility]) [address] [place] [address] Eosinophils/100 WBC (Bld) 1.7 % Normal 0.0-6.0 [facility] Comment on above: Performed By: #### L [id number] #### [facility] ([facility]) [address] [place] [address] Erythrocyte distribution width (RBC) [Ratio] 12.9 % Normal 11.5-15.0 [facility] Comment on above: Performed By: #### L [id number] #### [facility] ([facility]) [address] [place] [address] ERYTHROCYTE MEAN CORPUSCULAR HEMOGLOBIN CONCENTRATION (G/DL) BY AUTOMATED 31.1 g/dL Low 32.0-35.0 [facility] Comment on above: Performed By: #### L [id number] #### [facility] ([facility]) [address] [place] [address] Hematocrit (Bld) [Volume fraction] 29.6 % Low 36.0-48.0 [facility] Comment on above: Performed By: #### L [id number] #### [facility] ([facility]) [address] [place] [address] Hemoglobin (Bld) [Mass/Vol] 9.2 g/dL Low 12.0-15.0 [facility] Comment on above: Performed By: #### L [id number] #### [facility] ([facility]) [address] [place] [address] Immature granulocytes (Bld) [#/Vol] 0.05 10*3/uL Normal 0.00-0.20 [facility] Comment on above: Performed By: #### L [id number] #### [facility] ([facility]) [address] [place] [address] Immature granulocytes/100 WBC (Bld) 0.7 % Normal 0.0-1.0 [facility] Comment on above: Performed By: #### L [id number] #### [facility] [address] [place] [address] Lymphocytes (Bld) [#/Vol] 1.62 10*3/uL Normal 1.20-4.00 [facility] Comment on above: Performed By: #### L [id number] #### [facility] [address] [place] [address] Lymphocytes/100 WBC (Bld) 21.7 % Normal 20.0-45.0 [facility] Comment on above: Performed By: #### L [id number] #### [facility] ([facility]) [address] [place] [address] MCH (RBC) [Entitic mass] 30.9 pg Normal 27.0-33.0 [facility] Comment on above: Performed By: #### L [id number] #### [facility] ([facility]) [address] [place] [address] MCV (RBC) [Entitic vol] 99.3 fL High 82.0-98.0 [facility] Comment on above: Performed By: #### L [id number] #### [facility] ([facility]) [address] [place] [address] Monocytes (Bld) [#/Vol] 0.53 10*3/uL Normal 0.10-1.00 [facility] Comment on above: Performed By: #### L [id number] #### [facility] ([facility]) [address] [place] [address] Monocytes/100 WBC (Bld) 7.1 % Normal 5.0-12.0 [facility] Comment on above: Performed By: #### L [id number] #### [facility] ([facility]) [address] [place] [address] Neutrophils (Bld) [#/Vol] 5.10 10*3/uL Normal 1.60-7.60 [facility] Comment on above: Performed By: #### L [id number] #### [facility] ([facility]) [address] [place] [address] Neutrophils/100 WBC (Bld) 68.4 % Normal 40.0-72.0 [facility] Comment on above: Performed By: #### L [id number] #### [facility] ([facility]) [address] [place] [address] NRBC (PER 100 WBCS) BY AUTOMATED COUNT 0.0 % Normal 0 [facility] Comment on above: Performed By: #### L [id number] #### [facility] ([facility]) [address] [place] [address] PLATELETS (10*3/UL) IN BLOOD AUTOMATED COUNT 249 10*3/uL Normal 150-400 [facility] Comment on above: Performed By: #### L [id number] #### [facility] ([facility]) [address] [place] [address] RBC (Bld) [#/Vol] 2.98 10*6/uL Low 3.80-5.00 [facility] Comment on above: Performed By: #### L [id number] #### [facility] ([facility]) [address] [place] [address] WBC (Bld) [#/Vol] 7.46 10*3/uL Normal 4.00-10.60 [facility] Comment on above: Performed By: #### L [id number] #### [facility] ([facility]) [address] [place] [address] MAGNESIUMon 08-02-2023 Magnesium [Mass/Vol] 2.1 mg/dL Normal 1.9-2.7 [facility] Comment on above: Performed By: #### L [id number] #### [facility] ([facility]) [address] [place] [address] PHOSPHORUSon 08-02-2023 Magnesium [Mass/Vol] 5.3 mg/dL High 2.5-5.0 [facility] Comment on above: Performed By: #### L [id number] #### [facility] ([facility]) [address] [place] [address] BASIC METABOLIC PANELon Anion gap [Moles/Vol] 11 mmol/L Normal 7-20 [facility] Comment on above: Performed By: #### L [id number] #### [facility] ([facility]) [address] [place] [address] Calcium [Mass/Vol] 8.9 mg/dL Normal 8.6-10.3 [facility] Comment on above: Performed By: #### L [id number] #### [facility] ([facility]) [address] [place] [address] Chloride [Moles/Vol] 98 mmol/L Normal 98-107 [facility] Comment on above: Performed By: #### L [id number] #### [facility] ([facility]) [address] [place] [address] CO2 [Moles/Vol] 32 mmol/L High 21-31 [facility] Comment on above: Performed By: #### L [id number] #### [facility] ([facility]) [address] [place] [address] Creatinine [Mass/Vol] 2.68 mg/dL High 0.60-1.20 [facility] Comment on above: Performed By: #### L [id number] #### [facility] ([facility]) [address] [place] [address] GLOMERULAR FILTRATION RATE ML/MIN/1.73 SQ M.PREDICTED 19.6 mL/min/1.73m*2 Low >60.0 [facility] Comment on above: Result Comment: The [facility]???s estimated glomerular filtration rate (eGFR) will no longer include consideration of race in its calculation. The National Kidney Foundation???s eGFR Task Force developed new recommendations for the estimation of the glomerular filtration rate in the [place] They recommend immediate implementation of the new equation refit without the race variable in all laboratories because the calculation does not include race. In addition to not including race in the calculation and reporting, it included diversity in its development, and has acceptable performance characteristics and potential consequences that do not disproportionately affect any one group of individuals. Performed By: #### L [id number] #### [facility] ([facility]) [address] [place] [address] Glucose [Mass/Vol] 71 mg/dL Normal 70-100 [facility] Comment on above: Performed By: #### L [id number] #### [facility] ([facility]) [address] [place] [address] Potassium [Moles/Vol] 4.1 mmol/L Normal 3.5-5.1 [facility] Comment on above: Performed By: #### L [id number] #### [facility] ([facility]) [address] [place] [address] Sodium [Moles/Vol] 137 mmol/L Normal 136-145 [facility] Comment on above: Performed By: #### L [id number] #### [facility] ([facility]) [address] [place] [address] Urea nitrogen [Mass/Vol] 87 mg/dL High 7-25 [facility] Comment on above: Performed By: #### L [id number] #### [facility] ([facility]) [address] [place] [address] UREA NITROGEN/CREATININE (MASS RATIO) IN SER/PLAS 32.5 Normal [facility] Comment on above: Performed By: #### L [id number] #### [facility] ([facility]) [address] [place] [address] CBC WITH AUTO DIFFERENTIALon 08-01-2023 Basophils (Bld) [#/Vol] 0.03 10*3/uL Normal 0.00-0.20 [facility] Comment on above: Performed By: #### L [id number] ####[facility] ([facility])[address] [place] [address] Basophils/100 WBC (Bld) 0.4 % Normal 0.0-1.0 [facility] Comment on above: Performed By: #### L [id number] ####[facility] ([facility])[address] [place] [address] Eosinophils (Bld) [#/Vol] 0.11 10*3/uL Normal 0.00-0.50 [facility] Comment on above: Performed By: #### L [id number] ####[facility] ([facility])[address] [place] [address] Eosinophils/100 WBC (Bld) 1.5 % Normal 0.0-6.0 [facility] Comment on above: Performed By: #### L [id number] ####[facility] [place] [address] Erythrocyte distribution width (RBC) [Ratio] 12.8 % Normal 11.5-15.0 [facility] Comment on above: Performed By: #### L [id number] ####[facility] ([facility])[address] [place] [address] ERYTHROCYTE MEAN CORPUSCULAR HEMOGLOBIN CONCENTRATION (G/DL) BY AUTOMATED 31.1 g/dL Low 32.0-35.0 [facility] Comment on above: Performed By: #### L [id number] ####[facility] ([facility])[address] [place] [address] Hematocrit (Bld) [Volume fraction] 31.8 % Low 36.0-48.0 [facility] Comment on above: Performed By: #### L [id number] ####[facility] ([facility])[address] [place] [address] Hemoglobin (Bld) [Mass/Vol] 9.9 g/dL Low 12.0-15.0 [facility] Comment on above: Performed By: #### L [id number] ####[facility] ([facility])[address] [place] [address] Immature granulocytes (Bld) [#/Vol] 0.05 10*3/uL Normal 0.00-0.20 [facility] Comment on above: Performed By: #### L [id number] ####[facility] ([facility])[address] [place] [address] Immature granulocytes/100 WBC (Bld) 0.7 % Normal 0.0-1.0 [facility] Comment on above: Performed By: #### L [id number] ####[facility] ([facility])[address] [place] [address] Lymphocytes (Bld) [#/Vol] 1.55 10*3/uL Normal 1.20-4.00 [facility] Comment on above: Performed By: #### L [id number] ####[facility] ([facility])[address] [place] [address] Lymphocytes/100 WBC (Bld) 21.0 % Normal 20.0-45.0 [facility] Comment on above: Performed By: #### L [id number] ####[facility] ([facility])[address] [place] [address] MCH (RBC) [Entitic mass] 30.7 pg Normal 27.0-33.0 [facility] Comment on above: Performed By: #### L [id number] ####[facility] ([facility])[address] [place] [address] MCV (RBC) [Entitic vol] 98.5 fL High 82.0-98.0 [facility] Comment on above: Performed By: #### L [id number] ####[facility] ([facility])[address] [place] [address] Monocytes (Bld) [#/Vol] 0.55 10*3/uL Normal 0.10-1.00 [facility] Comment on above: Performed By: #### L [id number] ####[facility] ([facility])[address] [place] [address] Monocytes/100 WBC (Bld) 7.5 % Normal 5.0-12.0 [facility] Comment on above: Performed By: #### L [id number] ####[facility] [place] [address] Neutrophils (Bld) [#/Vol] 5.08 10*3/uL Normal 1.60-7.60 [facility] Comment on above: Performed By: #### L [id number] ####[facility] ([facility])[address] [place] [address] Neutrophils/100 WBC (Bld) 68.9 % Normal 40.0-72.0 [facility] Comment on above: Performed By: #### L [id number] ####[facility] ([facility])[address] [place], [place] [address] NRBC (PER 100 WBCS) BY AUTOMATED COUNT 0.0 % Normal 0 [facility] Comment on above: Performed By: #### L [id number] ####[facility] ([facility])[address] [place] [address] PLATELETS (10*3/UL) IN BLOOD AUTOMATED COUNT 270 10*3/uL Normal 150-400 [facility] Comment on above: Performed By: #### L [id number] ####[facility] ([facility])[address] [place] [address] RBC (Bld) [#/Vol] 3.23 10*6/uL Low 3.80-5.00 [facility] Comment on above: Performed By: #### L [id number] ####[facility] ([facility])[address] [place] [address] WBC (Bld) [#/Vol] 7.37 10*3/uL Normal 4.00-10.60 [facility] Comment on above: Performed By: #### L [id number] ####[facility] ([facility])[address] [place] [address] MAGNESIUMon 08-01-2023 Magnesium [Mass/Vol] 1.8 mg/dL Low 1.9-2.7 [facility] Comment on above: Performed By: #### L [id number] ####[facility] ([facility])[address] [place] [address] PHOSPHORUSon 08-01-2023 Magnesium [Mass/Vol] 5.4 mg/dL High 2.5-5.0 [facility] Comment on above: Performed By: #### L [id number] ####[facility] ([facility])[address] [place] [address] TROPONIN Ion 08-01-2023 Troponin I.cardiac [Mass/Vol] 0.01 ng/mL Normal 0.00-0.04 [facility] Comment on above: Performed By: #### L [id number] #### [facility] ([facility]) [address] [place] [address] CBCon 07-31-2023 Erythrocyte distribution width (RBC) [Ratio] 13.0 % Normal 11.5-15.0 [facility] Comment on above: Performed By: #### L [id number] #### [facility] ([facility]) [address] [place] [address] ERYTHROCYTE MEAN CORPUSCULAR HEMOGLOBIN CONCENTRATION (G/DL) BY AUTOMATED 32.3 g/dL Normal 32.0-35.0 [facility] Comment on above: Performed By: #### L [id number] #### [facility] ([facility]) [address] [place] [address] Hematocrit (Bld) [Volume fraction] 28.2 % Low 36.0-48.0 [facility] Comment on above: Performed By: #### L [id number] #### [facility] ([facility]) [address] [facility] [address] Hemoglobin (Bld) [Mass/Vol] 9.1 g/dL Low 12.0-15.0 [facility] Comment on above: Performed By: #### L [id number] #### [facility] ([facility]) [address] [place] [address] MCH (RBC) [Entitic mass] 31.4 pg Normal 27.0-33.0 [facility] Comment on above: Performed By: #### L [id number] #### [facility] ([facility]) [address] [place] [address] MCV (RBC) [Entitic vol] 97.2 fL Normal 82.0-98.0 [facility] Comment on above: Performed By: #### L [id number] #### [facility] ([facility]) [address] [place] [address] PLATELETS (10*3/UL) IN BLOOD AUTOMATED COUNT 247 10*3/uL Normal 150-400 [facility] Comment on above: Performed By: #### L [id number] #### [facility] ([facility]) [address] [place] [address] RBC (Bld) [#/Vol] 2.90 10*6/uL Low 3.80-5.00 [facility] Comment on above: Performed By: #### L [id number] #### [facility] ([facility]) [address] [place] [address] WBC (Bld) [#/Vol] 6.08 10*3/uL Normal 4.00-10.60 [facility] Comment on above: Performed By: #### L [id number] #### [facility] ([facility]) [address] [place] [address] COMPREHENSIVE METABOLIC PANE Sameer 07-31-2023 Albumin [Mass/Vol] 3.2 g/dL Low 3.5-5.7 [facility] Comment on above: Performed By: #### L [id number] ####[facility] ([facility])[address] [place] [address] ALP [Catalytic activity/Vol] 156 U/L High 34-104 [facility] Comment on above: Performed By: #### L [id number] ####[facility] ([facility])[address] [place] [address] ALT [Catalytic activity/Vol] 13 U/L Normal 7-52 [facility] Comment on above: Performed By: #### L [id number] ####[facility] [place] [address] Anion gap [Moles/Vol] 11 mmol/L Normal 7-20 [facility] Comment on above: Performed By: #### L [id number] ####[facility] ([facility])[address] [place] [address] AST [Catalytic activity/Vol] 16 U/L Normal 13-39 [facility] Comment on above: Performed By: #### L [id number] ####[facility] ([facility])[address] [place] [address] Bilirubin [Mass/Vol] 0.2 mg/dL Low 0.3-1.0 [facility] Comment on above: Performed By: #### L [id number] ####[facility] ([facility])[address] [place] [address] Calcium [Mass/Vol] 8.7 mg/dL Normal 8.6-10.3 [facility] Comment on above: Performed By: #### L [id number] ####[facility] ([facility])[address] [place] [address] Chloride [Moles/Vol] 101 mmol/L Normal 98-107 [facility] Comment on above: Performed By: #### L [id number] ####[facility] [place] [address] CO2 [Moles/Vol] 29 mmol/L Normal 21-31 [facility] Comment on above: Performed By: #### L [id number] ####[facility] ([facility] [place] [address] Creatinine [Mass/Vol] 2.51 mg/dL High 0.60-1.20 [facility] Comment on above: Performed By: #### L [id number] ####[facility] [place] [address] GLOMERULAR FILTRATION RATE ML/MIN/1.73 SQ M.PREDICTED 21.2 mL/min/1.73m*2 Low >60.0 [facility] Comment on above: Result Comment: [facility]???s estimated glomerular filtration rate (eGFR) will no longer include consideration of race in its calculation. The National Kidney Foundation???s eGFR Task Force developed new recommendations for the estimation of the glomerular filtration rate in the [place] They recommend immediate implementation of the new equation refit without the race variable in all laboratories because the calculation does not include race. In addition to not including race in the calculation and reporting, it included diversity in its development, and has acceptable performance characteristics and potential consequences that do not disproportionately affect any one group of individuals. Performed By: #### L [id number] ####[facility] ([facility])[address] [place] [address] Glucose [Mass/Vol] 86 mg/dL Normal 70-100 [facility] Comment on above: Performed By: #### L [id number] ####[facility] ([facility])[address] [place] [address] Potassium [Moles/Vol] 3.9 mmol/L Normal 3.5-5.1 [facility] Comment on above: Performed By: #### L [id number] ####[facility] ([facility])[address] [place] [address] Protein [Mass/Vol] 5.5 g/dL Low 6.0-8.3 [facility] Comment on above: Performed By: #### L [id number] ####[facility] ([facility])[address] [place] [address] Sodium [Moles/Vol] 137 mmol/L Normal 136-145 [facility] Comment on above: Performed By: #### L [id number] ####[facility] ([facility])[address] [place] [address] Urea nitrogen [Mass/Vol] 88 mg/dL High 7-25 [facility] Comment on above: Performed By: #### L [id number] ####[facility] ([facility])[address] [place] [address] UREA NITROGEN/CREATININE (MASS RATIO) IN SER/PLAS 35.1 Normal [facility] Comment on above: Performed By: #### L [id number] ####[facility] ([facility])[address] [place] [address] HEPATITIS B CORE ANTIBODY, T OTALon 07-31-2023 HEPATITIS B VIRUS CORE AB (PRESENCE) IN SER/PLAS BY IMM Non-Reactive Normal Nonreactive [facility] Comment on above: Performed By: #### L [id number] ####[facility] ([facility])[address] [place] [address] HEPATITIS B SURFACE ANTIBODY QUANTon 07-31-2023 HEPATITIS B VIRUS SURFACE AB (MIU/ML) IN SERUM 1.84 mIU/mL Normal [facility] Comment on above: Result Comment: INTE RPRETATION: NONREACTIVE<8.00 mIU/mL INDETERMINATE8.00 - 12.00 mIU/mL REACTIVE>12 mIU/mL Performed By: #### L [id number] #### [facility] ([facility]) [address] [place] [address] HEPATITIS B SURFACE ANTIGENo n 07-31-2023 HEPATITIS B VIRUS SURFACE AG PRESENCE IN SERUM Non-Reactive Normal Nonreactive [facility] Comment on above: Performed By: #### L [id number] #### [facility] ([facility]) [address] [place] [address] HEPATITIS C ANTIBODYon 07-31 HEPATITIS C VIRUS AB PRESENCE IN SERUM Non-Reactive Normal Nonreactive [facility] Comment on above: Performed By: #### L [id number] #### [facility] ([facility]) [address] [place] [address] MAGNESIUMon 07-31-2023 Magnesium [Mass/Vol] 1.6 mg/dL Low 1.9-2.7 [facility] Comment on above: Performed By: #### L [id number] ####[facility] ([facility])[address] [place] [address] PROTEIN ELECTROPHORESIS, URI NE, 24 HOURon 07-31-2023 Protein (U) [Mass/Vol] 10.8 mg/dL Normal [facility] Comment on above: Result Comment: Ther e are no established reference values for random urine specimens. Performed By: #### L [id number] ####[facility] ([facility])[address] [place] [address] UPEP INTERPRETATION Please see attached report. Normal [facility] Comment on above: Performed By: #### L [id number] ####[facility] ([facility])[address] [place] [address] BASIC METABOLIC PANELon Anion gap [Moles/Vol] 12 mmol/L Normal 7-20 [facility] Comment on above: Performed By: #### L [id number] #### [facility] ([facility]) [address] [place] [address] Calcium [Mass/Vol] 8.4 mg/dL Low 8.6-10.3 [facility] Comment on above: Performed By: #### L [id number] #### [facility] ([facility]) [address] [place] [address] Chloride [Moles/Vol] 103 mmol/L Normal 98-107 [facility] Comment on above: Performed By: #### L [id number] #### [facility] ([facility]) [address] [place] [address] CO2 [Moles/Vol] 25 mmol/L Normal 21-31 [facility] Comment on above: Performed By: #### L [id number] #### [facility] ([facility]) [address] [place] [address] Creatinine [Mass/Vol] 2.95 mg/dL High 0.60-1.20 [facility] Comment on above: Performed By: #### L [id number] #### [facility] ([facility]) [address] [place] [address] GLOMERULAR FILTRATION RATE ML/MIN/1.73 SQ M.PREDICTED 17.5 mL/min/1.73m*2 Low >60.0 [facility] Comment on above: Result Comment: The [facility]???s estimated glomerular filtration rate (eGFR) will no longer include consideration of race in its calculation. The National Kidney Foundation???s eGFR Task Force developed new recommendations for the estimation of the glomerular filtration rate in the [place] They recommend immediate implementation of the new equation refit without the race variable in all laboratories because the calculation does not include race. In addition to not including race in the calculation and reporting, it included diversity in its development, and has acceptable performance characteristics and potential consequences that do not disproportionately affect any one group of individuals. Performed By: #### L [id number] #### [facility] ([facility]) [address] [place] [address] Glucose [Mass/Vol] 84 mg/dL Normal 70-100 [facility] Comment on above: Performed By: #### L [id number] #### [facility] ([facility]) [address] [place] [address] Potassium [Moles/Vol] 4.2 mmol/L Normal 3.5-5.1 [facility] Comment on above: Performed By: #### L [id number] #### [facility] ([facility]) [address] [place] [address] Sodium [Moles/Vol] 136 mmol/L Normal 136-145 [facility] Comment on above: Performed By: #### L [id number] #### [facility] ([facility]) [address] [place] [address] Urea nitrogen [Mass/Vol] 96 mg/dL High 7-25 [facility] Comment on above: Performed By: #### L [id number] #### [facility] ([facility]) [address] [place] [address] UREA NITROGEN/CREATININE (MASS RATIO) IN SER/PLAS 32.5 Normal [facility] Comment on above: Performed By: #### L [id number] #### [facility] ([facility]) [address] [place] [address] CBCon 07-30-2023 Erythrocyte distribution width (RBC) [Ratio] 13.2 % Normal 11.5-15.0 [facility] Comment on above: Performed By: #### L [id number] #### [facility] ([facility]) [address] [place] [address] ERYTHROCYTE MEAN CORPUSCULAR HEMOGLOBIN CONCENTRATION (G/DL) BY AUTOMATED 32.0 g/dL Normal 32.0-35.0 [facility] Comment on above: Performed By: #### L [id number] #### [facility] ([facility]) [address] [place] [address] Hematocrit (Bld) [Volume fraction] 28.1 % Low 36.0-48.0 [facility] Comment on above: Performed By: #### L [id number] #### [facility] ([facility]) [address] [place] [address] Hemoglobin (Bld) [Mass/Vol] 9.0 g/dL Low 12.0-15.0 [facility] Comment on above: Performed By: #### L [id number] #### [facility] ([facility]) [address] [place] [address] MCH (RBC) [Entitic mass] 31.3 pg Normal 27.0-33.0 [facility] Comment on above: Performed By: #### L [id number] #### [facility] ([facility]) [address] [place] [address] MCV (RBC) [Entitic vol] 97.6 fL Normal 82.0-98.0 [facility] Comment on above: Performed By: #### L [id number] #### [facility] ([facility]) [address] [place] [address] PLATELETS (10*3/UL) IN BLOOD AUTOMATED COUNT 245 10*3/uL Normal 150-400 [facility] Comment on above: Performed By: #### L [id number] #### [facility] ([facility]) [address] [place] [address] RBC (Bld) [#/Vol] 2.88 10*6/uL Low 3.80-5.00 [facility] Comment on above: Performed By: #### L [id number] #### [facility] ([facility]) [address] [place] [address] WBC (Bld) [#/Vol] 5.95 10*3/uL Normal 4.00-10.60 [facility] Comment on above: Performed By: #### L [id number] #### [facility] ([facility]) [address] [place] [address] BASIC METABOLIC PANELon 02-0 Anion gap [Moles/Vol] 14 mmol/L Normal 7-20 [facility] Comment on above: Performed By: #### L [id number] ####[facility] ([facility])[address] [place] [address] Calcium [Mass/Vol] 8.0 mg/dL Low 8.6-10.3 [facility] Comment on above: Performed By: #### L [id number] ####[facility] ([facility])[address] [place] [address] Chloride [Moles/Vol] 104 mmol/L Normal 98-107 [facility] Comment on above: Performed By: #### L [id number] ####[facility] ([facility])[address] [place] [address] CO2 [Moles/Vol] 21 mmol/L Normal 21-31 [facility] Comment on above: Performed By: #### L [id number] ####[facility] ([facility])[address] [place] [address] Creatinine [Mass/Vol] 3.42 mg/dL High 0.60-1.20 [facility] Comment on above: Performed By: #### L [id number] ####[facility] ([facility])[address] [place] [address] GLOMERULAR FILTRATION RATE ML/MIN/1.73 SQ M.PREDICTED 14.7 mL/min/1.73m*2 Low >60.0 [facility] Comment on above: Result Comment: The [facility]???s estimated glomerular filtration rate (eGFR) will no longer include consideration of race in its calculation. The National Kidney Foundation???s eGFR Task Force developed new recommendations for the estimation of the glomerular filtration rate in the [place] They recommend immediate implementation of the new equation refit without the race variable in all laboratories because the calculation does not include race. In addition to not including race in the calculation and reporting, it included diversity in its development, and has acceptable performance characteristics and potential consequences that do not disproportionately affect any one group of individuals. Performed By: #### L [id number] ####[facility] ([facility])[address] [place] [address] Glucose [Mass/Vol] 75 mg/dL Normal 70-100 [facility] Comment on above: Performed By: #### L [id number] ####[facility] ([facility])[address] [place] [address] Potassium [Moles/Vol] 5.1 mmol/L Normal 3.5-5.1 [facility] Comment on above: Performed By: #### L [id number] ####[facility] ([facility])[address] [place] [address] Sodium [Moles/Vol] 134 mmol/L Low 136-145 [facility] Comment on above: Performed By: #### L [id number] ####[facility] [place] [address] Urea nitrogen [Mass/Vol] 104 mg/dL High 7-25 [facility] Comment on above: Performed By: #### L [id number] ####[facility] ([facility])[address] [place] [address] UREA NITROGEN/CREATININE (MASS RATIO) IN SER/PLAS 30.4 Normal [facility] Comment on above: Performed By: #### L [id number] ####[facility] [place] [address] Anion gap [Moles/Vol] 14 mmol/L Normal 7-20 [facility] Comment on above: Performed By: #### L [id number] #### [facility] [address] [place] [address] Calcium [Mass/Vol] 7.5 mg/dL Low 8.6-10.3 [facility] Comment on above: Performed By: #### L [id number] #### [facility] [address] [place] [address] Chloride [Moles/Vol] 104 mmol/L Normal 98-107 [facility] Comment on above: Performed By: #### L [id number] #### [facility] [address] [place] [address] CO2 [Moles/Vol] 21 mmol/L Normal 21-31 [facility] Comment on above: Performed By: #### L [id number] #### [facility] [address] [place] [address] Creatinine [Mass/Vol] 3.52 mg/dL High 0.60-1.20 [facility] Comment on above: Performed By: #### L [id number] #### [facility] ([facility]) [address] [place] [address] GLOMERULAR FILTRATION RATE ML/MIN/1.73 SQ M.PREDICTED 14.2 mL/min/1.73m*2 Low >60.0 [facility] Comment on above: Result Comment: The [facility]???s estimated glomerular filtration rate (eGFR) will no longer include consideration of race in its calculation. The National Kidney Foundation???s eGFR Task Force developed new recommendations for the estimation of the glomerular filtration rate in the [place] They recommend immediate implementation of the new equation refit without the race variable in all laboratories because the calculation does not include race. In addition to not including race in the calculation and reporting, it included diversity in its development, and has acceptable performance characteristics and potential consequences that do not disproportionately affect any one group of individuals. Performed By: #### L [id number] #### [facility] ([facility]) [address] [place] [address] Glucose [Mass/Vol] 82 mg/dL Normal 70-100 [facility] Comment on above: Performed By: #### L [id number] #### [facility] ([facility]) [address] [place] [address] Potassium [Moles/Vol] 4.9 mmol/L Normal 3.5-5.1 [facility] Comment on above: Performed By: #### L [id number] #### [facility] ([facility]) [address] [place] [address] Sodium [Moles/Vol] 134 mmol/L Low 136-145 [facility] Comment on above: Performed By: #### L [id number] #### [facility] ([facility]) [address] [place] [address] Urea nitrogen [Mass/Vol] 105 mg/dL High 7-25 [facility] Comment on above: Performed By: #### L [id number] #### [facility] ([facility]) [address] [place] [address] UREA NITROGEN/CREATININE (MASS RATIO) IN SER/PLAS 29.8 Normal [facility] Comment on above: Performed By: #### L [id number] #### [facility] ([facility]) [address] [address] CBC WITH AUTO DIFFERENTIALon 07-29-2023 Basophils (Bld) [#/Vol] 0.02 10*3/uL Normal 0.00-0.20 [facility] Comment on above: Performed By: #### L [id number] ####[facility] ([facility])[address] [place] [address] Basophils/100 WBC (Bld) 0.3 % Normal 0.0-1.0 [facility] Comment on above: Performed By: #### L [id number] ####[facility] ([facility])[address] [place] [address] Eosinophils (Bld) [#/Vol] 0.12 10*3/uL Normal 0.00-0.50 [facility] Comment on above: Performed By: #### L [id number] ####[facility] ([facility])[address] [place] [address] Eosinophils/100 WBC (Bld) 1.9 % Normal 0.0-6.0 [facility] Comment on above: Performed By: #### L [id number] ####[facility] [place] [address] Erythrocyte distribution width (RBC) [Ratio] 13.5 % Normal 11.5-15.0 [facility] Comment on above: Performed By: #### L [id number] ####[facility] ([facility])[address] [place] [address] ERYTHROCYTE MEAN CORPUSCULAR HEMOGLOBIN CONCENTRATION (G/DL) BY AUTOMATED 31.5 g/dL Low 32.0-35.0 [facility] Comment on above: Performed By: #### L [id number] ####[facility] ([facility])[address] [place] [address] Hematocrit (Bld) [Volume fraction] 27.6 % Low 36.0-48.0 [facility] Comment on above: Performed By: #### L [id number] ####[facility] ([facility])[address] [place] [address] Hemoglobin (Bld) [Mass/Vol] 8.7 g/dL Low 12.0-15.0 [facility] Comment on above: Performed By: #### L [id number] ####[facility] ([facility])[address] [place] [address] Immature granulocytes (Bld) [#/Vol] 0.06 10*3/uL Normal 0.00-0.20 [facility] Comment on above: Performed By: #### L [id number] ####[facility] ([facility])[address] [place] [address] Immature granulocytes/100 WBC (Bld) 1.0 % Normal 0.0-1.0 [facility] Comment on above: Performed By: #### L [id number] ####[facility] [place] [address] Lymphocytes (Bld) [#/Vol] 1.28 10*3/uL Normal 1.20-4.00 [facility] Comment on above: Performed By: #### L [id number] ####[facility] [place] [address] Lymphocytes/100 WBC (Bld) 20.4 % Normal 20.0-45.0 [facility] Comment on above: Performed By: #### L [id number] ####[facility] [place] [address] MCH (RBC) [Entitic mass] 31.3 pg Normal 27.0-33.0 [facility] Comment on above: Performed By: #### L [id number] ####[facility] [place] [address] MCV (RBC) [Entitic vol] 99.3 fL High 82.0-98.0 [facility] Comment on above: Performed By: #### L [id number] ####[facility] ([facility])[address] [place] [address] Monocytes (Bld) [#/Vol] 0.54 10*3/uL Normal 0.10-1.00 [facility] Comment on above: Performed By: #### L [id number] ####[facility] ([facility])[address] [place] [address] Monocytes/100 WBC (Bld) 8.6 % Normal 5.0-12.0 [facility] Comment on above: Performed By: #### L [id number] ####[facility] ([facility])[address] [place] [address] Neutrophils (Bld) [#/Vol] 4.24 10*3/uL Normal 1.60-7.60 [facility] Comment on above: Performed By: #### L [id number] ####[facility] ([facility])[address] [place] [address] Neutrophils/100 WBC (Bld) 67.8 % Normal 40.0-72.0 [facility] Comment on above: Performed By: #### L [id number] ####[facility] ([facility])[address] [place] [address] NRBC (PER 100 WBCS) BY AUTOMATED COUNT 0.0 % Normal 0 [facility] Comment on above: Performed By: #### L [id number] ####[facility] ([facility])[address] [place] [address] PLATELETS (10*3/UL) IN BLOOD AUTOMATED COUNT 268 10*3/uL Normal 150-400 [facility] Comment on above: Performed By: #### L [id number] ####[facility] ([facility])[address] [place] [address] RBC (Bld) [#/Vol] 2.78 10*6/uL Low 3.80-5.00 [facility] Comment on above: Performed By: #### L [id number] ####[facility] ([facility])[address] [place] [address] WBC (Bld) [#/Vol] 6.26 10*3/uL Normal 4.00-10.60 [facility] Comment on above: Performed By: #### L [id number] ####[facility] ([facility])[address] [place] [address] CONSULTon 07-29-2023 CONSULT ----- ----- Attestation signed by Rinku Tan MD at 07/29/2023 8:52 PM I personally saw and examined the patient on the same date of service as resident, Dr. Villavicencio. I discussed the findings and therapeutic plan with the resident and agree with the documentation. Pt had tecent admission to local hospital in for [place] and hypervolemia, her s.cr was >4 on 07/28/23, we discussed potential need to start [employer] given hypervolemia and uremic symptoms (N/v, confusion and tremor) will attempt IV diuresis, in case no or poor response then we may start Hd on Monday. ----- Nephrology Consult Note Patient : Mabel Moser; 63 y.o. Location: [id number]/[id number] Attending: Rayray Mix MD Admit Date: 07/28/2023 Hospital Day: 1 Reason for Consult: Acute Renal Failure History of Present Illness: Mabel Moser is a 63 y.o. female onCKD Stage V alpha-1 antitrypsin carrier, HFpEF, essential hypertension GERD, hypothyroidism, CVA, seizures, DVT on eliquis, morbid obesity s/p gastric bypass surgery who initially presented to [facility] with concerns for worsening lower extremity edema, after gaining 50 pounds within past week. Patient was evaluated by PCP who increased Bumex dose from 1 mg TID to 3 mg TID but patient had no improvement in symptoms. On presentation to [place], patient's creatinine was 4.55 (baseline 1.8-2), phosphorus 11.2, potassium 5.7, magnesium 1.8, hemoglobin 9.2 and BUN 122. Patient was initiated on Bumex drip but developed hypotension and was changed to IV pushes. Patient was subsequently transferred to [facility] Upon assessment at [facility], patient has downtrend in Cr to 3.64, hemoglobin 8.5, troponin 0.01, BNP 265. Patient was initiated on IV Lasix 80 mg 3 times daily Review of Systems: Review of Systems Constitutional: Positive for fatigue. Negative for chills and fever. HENT: Negative. Eyes: Negative. Respiratory: Positive for shortness of breath. Cardiovascular: Positive for palpitations and leg swelling. Gastrointestinal: Negative. Endocrine: Negative. Genitourinary: Decreased urine Musculoskeletal: Negative. Allergic/Immunologic: Negative. Neurological: Negative. Hematological: Negative. Psychiatric/Behavioral: Negative. Input/Output: I/O last 3 completed shifts: In: 420.1 (4.5 mL/kg) [P.O.:120; I.V.:200.1 (2.1 mL/kg); IV Piggyback:100] Out: 2049 (21.8 mL/kg) [Urine:2049 (0.6 mL/kg/hr)] Weight: 94.2 kg Vital Signs: Temperature: Temp: 36.9 ???C (98.5 ???F) TMax: Temp (24hrs), Av.6 ???C (97.8 ???F), Min:36.4 ???C (97.5 ???F), Max:36.9 ???C (98.5 ???F) Respirations: Resp: 18 Pulse: Heart Rate: 74 BP: BP: 120/67 BP Range: Systolic (24hrs), Av , Min:101 , Max:120 Diastolic (24hrs), Av, Min:56, Max:95 Wt Readings from Last 3 Encounters: 07/29/23 94.2 kg (207 lb 10.8 oz) 07/13/23 90.7 kg (200 lb) 02/22/23 79.4 kg (175 lb) Physical Examination: Constitutional: Appearance: She is morbidly obese. She is ill-appearing. HENT: Head: Normocephalic and atraumatic. Right Ear: External ear normal. Left Ear: External ear normal. Nose: Nose normal. Eyes: General: No scleral icterus. Conjunctiva/sclera: Conjunctivae normal. Pupils: Pupils are equal, round, and reactive to light. Cardiovascular: Rate and Rhythm: Normal rate and regular rhythm. Pulses: Normal pulses. Heart sounds: Normal heart sounds. No murmur heard. No friction rub. No gallop. Pulmonary: Effort: Pulmonary effort is normal. No respiratory distress. Breath sounds: Normal breath sounds. No wheezing, rhonchi or rales. Abdominal: General: Abdomen is flat. Bowel sounds are normal. There is no distension. Palpations: Abdomen is soft. There is no mass. Tenderness: There is no abdominal tenderness. Musculoskeletal: Right lower le+ Pitting Edema present. Left lower le+ Pitting Edema present. Skin: General: Skin is warm. Capillary Refill: Capillary refill takes less than 2 seconds. Coloration: Skin is not jaundiced. Findings: No bruising, erythema or rash. Neurological: General: No focal deficit present. Mental Status: She is alert and oriented to person, place, and time. Mental status is at baseline. Cranial Nerves: No cranial nerve deficit. Motor: No weakness. Psychiatric: Mood and Affect: Mood normal. Behavior: Behavior normal. Behavior is cooperative. Thought Content: Thought content normal. Judgment: Judgment normal. Labs: Chemistry: Lab Results Component Value Date NA 134 (L) 07/29/2023 K 5.1 07/29/2023 CL 104 07/29/2023 CO2 21 07/29/2023 CO2 28.7 11/22/2022 ANIONGAP 14 07/29/2023 BUN 104 (H) 07/29/2023 CREATININE 3.42 (H) 07/29/2023 EGFR 14.7 (L) 07/29/2023 CALCIUM 8.0 (L) 07/29/2023 MG 2.0 07/29/2023 ALBUMIN 3.3 (L) 07/29 (more content not included)... Normal [facility] CONSULT ----- ----- Attestation signed by Seun Martinez MD at 07/29/2023 3:45 PM I personally saw and examined the patient on the same date of service as resident/fellow Dr Lowery. I discussed the findings and therapeutic plan with the resident/fellow Dr Lowery. I agree with the documentation, except for any edits/updates below. Teaching Physician's Revisions: Seun Martinez MD, MPH, [facility], [facility], [facility] Interventional Cardiology Pager Email: [email or web address] ----- Cardiology Consult Note Reason for Consult: Bilaterally worsening lower extremity edema with orthopnea, concerning for heart failure exacerbation. HPI: Mabel Moser is a 63 y.o. female with PMH of alpha-1 antitrypsin carrier, HFpEF, CKD 3A, HTN, GERD, hypothyroidism, CVA, seizures, DVT (on Eliquis at home), morbid obesity s/p gastric bypass surgery who initially presented to [facility] with concerns for bilateral worsening lower extremity edema. As per patient, she gained 50 pounds of weight within a week. She saw her PCP who increased her Bumex dose from 1 mg 3 times daily to 3 mg 3 times daily but despite that patient had no improvement in her pedal edema. On presentation to [facility], patient's creatinine was 4.55 (baseline 1.8-2), phosphorus 11.2, potassium 5.7, magnesium 1.8, hemoglobin 9.2 and BUN 122. She was initiated on Bumex drip but developed hypotension and hence it was changed to IV pushes. Her chest x-ray was negative and there was no DVT diagnosed on duplex ultrasound. She was then transferred to [facility]. At [facility], her creatinine did improved slightly to 3.64, hemoglobin 8.5, troponin 0.01, BNP 265. She was initiated on IV Lasix 80 mg 3 times daily. Patient tells me that she did have a TTE performed at [facility] 2 months back but there are no records available. She also underwent right heart cath in November 2022 which showed mildly increased left and right filling pressures with mild pulmonary hypertension. Her hemodynamic data at that time is as follows: RA: 7 RV: 45/4, 1 PA: 47/13 (29) PCWP: 15 CO: 6.53 CI: 3.66 O2 Sat: PA sat: 73%, AO sat: 100% BP: 136/61 (80) TP PVR: 2.1 Wood units At home, patient does endorse episodes of orthopnea, palpitations and waking up gasping for breath. Prior to 1 week, she did not complain of any lower extremity pitting edema. She also endorses history of alpha-1 antitrypsin carrier state and one of her sons of liver cirrhosis secondary to alpha-1 antitrypsin deficiency. Notably, in the past she was admitted to [facility] in 2019 with fluid overload and responded to diuresis. Prior evaluation included cardiac catheterization in 2016 that showed mild coronary artery disease with mildly elevated right-sided pressures and wedge pressure. She had normal ventricular function by echocardiography. Pulmonary VQ scan was negative for pulmonary embolism. Over the past year, her diuretic therapy had been intensified by Dr. Angle Santana and she was taking bumetanide 3 mg 3 times daily, Entresto 97-103 mg twice daily, spironolactone 100 mg daily, Toprol XL 25 mg daily and hydralazine as needed. Review of Systems Constitutional: Positive for fatigue. Negative for chills, diaphoresis and fever. HENT: Negative. Eyes: Negative. Respiratory: Positive for shortness of breath (Exertional). Negative for cough, chest tightness and wheezing. Orthopnea, waking up gasping for breath Cardiovascular: Positive for palpitations (Episodic, usually during sleep) and leg swelling. Negative for chest pain. Gastrointestinal: Negative. Negative for abdominal pain, nausea and vomiting. Endocrine: Negative. Genitourinary: Negative. Negative for decreased urine volume, difficulty urinating, dysuria, enuresis and flank pain. Musculoskeletal: Negative. Skin: Negative. Allergic/Immunologic: Negative. Neurological: Negative. Negative for dizziness, tremors, syncope, light-headedness, numbness and headaches. Hematological: Negative. Psychiatric/Behavioral: Negative. Past Medical History: She has a past medical history of Anxiety, Arthritis, Asthma, CHF (congestive heart failure) (CMS/HCC), Coronary artery disease, Depression, Gastroenteritis, Heart valve disease, Hypertension, Kidney failure, Lumbar spondylolysis, and Stroke (CMS/HCC). Surgical History She has a past surgical history that includes Gastric bypass; Hysterectomy; Hernia repair; Appendectomy; Joint replacement; Total knee arthroplasty (Right); and Cholecystectomy. Social History She reports that she has never smoked. She has never used smokeless tobacco. She reports that she does not currently use alcohol. She reports that she does not currently use drugs. Family History Family History Family history unknown: Yes (more content not included)... Normal [facility] CREATININE, URINE, RANDOMon 07-29-2023 Creatinine (U) [Mass/Vol] 17.0 mg/dL Low 26-299 [facility] Comment on above: Performed By: #### L [id number] #### [facility] ([facility]) [address] [place] [address] HEMOGLOBIN A1Con 07-29-2023 Glucose [Mass/Vol] 82 mg/dL Normal [facility] Comment on above: Performed By: #### L [id number] #### [facility] ([facility]) [address] [place] [address] HbA1c (Bld) [Mass fraction] 4.5 % Normal 4.0-6.0 [facility] Comment on above: Performed By: #### L [id number] #### [facility] ([facility]) [address] [place] [address] HEPATIC FUNCTION PANELon Albumin [Mass/Vol] 3.3 g/dL Low 3.5-5.7 [facility] Comment on above: Performed By: #### L [id number] ####[facility] ([facility])[address] [place] [address] Performed By: #### L [id number] #### [facility] ([facility]) [address] [place] [address] ALP [Catalytic activity/Vol] 150 U/L High 34-104 [facility] Comment on above: Performed By: #### L [id number] ####[facility] ([facility])[address] [place] [address] ALT [Catalytic activity/Vol] 19 U/L Normal 7-52 [facility] Comment on above: Performed By: #### L [id number] ####[facility] ([facility])[address] [place] [address] AST [Catalytic activity/Vol] 24 U/L Normal 13-39 [facility] Comment on above: Performed By: #### L [id number] ####[facility] ([facility])[address] [place] [address] Bilirubin [Mass/Vol] 0.3 mg/dL Normal 0.3-1.0 [facility] Comment on above: Performed By: #### L [id number] ####[facility] ([facility])[address] [place] [address] Magnesium [Mass/Vol] 0.1 mg/dL Normal 0-0.2 [facility] Comment on above: Performed By: #### L [id number] ####[facility] ([facility])[address] [place] [address] Protein [Mass/Vol] 5.6 g/dL Low 6.0-8.3 [facility] Comment on above: Performed By: #### L [id number] ####[facility] ([facility])[address] [place] [address] LIPID PANELon 07-29-2023 CHOL/HDL 2.0 mg/dL Normal [facility] Comment on above: Performed By: #### L [id number] ####[facility] ([facility])[address] [place] [address] Cholesterol [Mass/Vol] 155 mg/dL Normal 120-200 [facility] Comment on above: Performed By: #### L [id number] ####[facility] ([facility])[address] [place] [address] Magnesium [Mass/Vol] 46 mg/dL Normal 40-149 [facility] Comment on above: Result Comment: TRIG LYCERIDE REFERENCE RANGE: 20 YEARS AND OLDER CARDIOVASCULAR RISK LESS THAN 150 mg/dL LOW RISK 150 TO 199 mg/dL BORDERLINE RISK 200 mg/dL AND GREATER HIGH RISK Performed By: #### L [id number] ####[facility] ([facility])[address] [place] [address] Magnesium [Mass/Vol] 67 mg/dL Normal 0-160 [facility] Comment on above: Performed By: #### L [id number] ####[facility] [place] [address] Magnesium [Mass/Vol] 79 mg/dL Normal 23-92 [facility] Comment on above: Performed By: #### L [id number] ####[facility] ([facility])[address] [place] [address] NON HDL CHOL. (LDL+VLDL) 76 Normal [facility] Comment on above: Performed By: #### L [id number] ####[facility] ([facility])[address] [place] [address] TOTAL VLDL-C 9 mg/dL Normal 0-40 [facility] Comment on above: Performed By: #### L [id number] ####[facility] ([facility])[address] [place] [address] MAGNESIUMon 07-29-2023 Magnesium [Mass/Vol] 2.0 mg/dL Normal 1.9-2.7 [facility] Comment on above: Performed By: #### L [id number] ####[facility] ([facility])[address] [place] [address] PROTIME-INRon 07-29-2023 INR IN PPP BY COAGULATION ASSAY 1.15 High 0.90-1.10 [facility] Comment on above: Result Comment: ACCC P RECOMMENDED INR FOR WARFARIN THERAPY CONDITION INR PROPHYLAXIS OF VENOUS THROMBOSIS 2-3 (HIGH-RISK SURGERY) TREATMENT OF VENOUS THROMBOSIS 2-3 TREATMENT OF PULMONARY EMBOLISM 2-3 PREVENTION OF SYSTEMIC EMBOLISM: 2-3 ACUTE MYOCARDIAL INFARCTION TISSUE HEART VALVES VALVULAR HEART DISEASE ATRIAL FIBRILLATION RECURRENT SYSTEMIC EMBOLISM MECHANICAL HEART VALVE 2.5-3.5 FROM: ORAL ANTICOAGULANTS. MECHANISM OF ACTION, CLINICAL EFFECTIVENESS, AND OPTIMAL THERAPEUTIC RANGE. CHEST 1995;108:231S-246S. Performed By: #### L [id number] #### [facility] ([facility]) [address] [place] [address] PROTHROMBIN TIME (PT) IN PPP BY COAGULATION ASSAY 14.8 Seconds Normal 12.3-14.8 [facility] Comment on above: Performed By: #### L [id number] #### [facility] ([facility]) [address] [place] [address] TSH3 REFLEX TO FT4on 024 THYROTROPIN (MIU/L) IN SER/PLAS BY DETECTION LIMIT <= 0.05 MIU/L 1.50 mIU/L Normal 0.34-5.60 [facility] Comment on above: Performed By: #### L [id number] #### [facility] ([facility]) [address] [place] [address] B-TYPE NATRIURETIC PEPTIDEon 07-28-2023 Natriuretic peptide B (Bld) [Mass/Vol] 265 pg/mL High 0-100 [facility] Comment on above: Performed By: #### L [id number] #### [facility] ([facility]) [address] [place] [address] BASIC METABOLIC PANELon Anion gap [Moles/Vol] 15 mmol/L Normal 7-20 [facility] Comment on above: Performed By: #### L [id number] ####[facility] ([facility])[address] [place] [address] Calcium [Mass/Vol] 7.3 mg/dL Low 8.6-10.3 [facility] Comment on above: Performed By: #### L [id number] ####[facility] ([facility])[address] [place] [address] Chloride [Moles/Vol] 105 mmol/L Normal 98-107 [facility] Comment on above: Performed By: #### L [id number] ####[facility] ([facility])[address] [place] [address] CO2 [Moles/Vol] 20 mmol/L Low 21-31 [facility] Comment on above: Performed By: #### L [id number] ####[facility] ([facility])[address] [place] [address] Creatinine [Mass/Vol] 3.64 mg/dL High 0.60-1.20 [facility] Comment on above: Performed By: #### L [id number] ####[facility] ([facility])[address] [place] [address] GLOMERULAR FILTRATION RATE ML/MIN/1.73 SQ M.PREDICTED 13.6 mL/min/1.73m*2 Low >60.0 [facility] Comment on above: Result Comment: The [facility]???s estimated glomerular filtration rate (eGFR) will no longer include consideration of race in its calculation. The [employer] Kid[employer]???s eGFR Task Force developed new recommendations for the estimation of the glomerular filtration rate in the [place] They recommend immediate implementation of the new equation refit without the race variable in all laboratories because the calculation does not include race. In addition to not including race in the calculation and reporting, it included diversity in its development, and has acceptable performance characteristics and potential consequences that do not disproportionately affect any one group of individuals. Performed By: #### L [id number] ####[facility] ([facility])[address] [place] [address] Glucose [Mass/Vol] 80 mg/dL Normal 70-100 [facility] Comment on above: Performed By: #### L [id number] ####[facility] ([facility])[address] [place] [address] Potassium [Moles/Vol] 5.7 mmol/L High 3.5-5.1 [facility] Comment on above: Performed By: #### L [id number] ####[facility] ([facility])[address] [place] [address] Sodium [Moles/Vol] 134 mmol/L Low 136-145 [facility] Comment on above: Performed By: #### L [id number] ####[facility] ([facility])[address] [place] [address] Urea nitrogen [Mass/Vol] 109 mg/dL High 7-25 [facility] Comment on above: Performed By: #### L [id number] ####[facility] ([facility])[address] [place] [address] UREA NITROGEN/CREATININE (MASS RATIO) IN SER/PLAS 29.9 Normal [facility] Comment on above: Performed By: #### L [id number] ####[facility] ([facility])[address] [place] [address] CBC WITH AUTO DIFFERENTIALon 07-28-2023 Basophils (Bld) [#/Vol] 0.02 10*3/uL Normal 0.00-0.20 [facility] Comment on above: Performed By: #### L [id number] ####[facility] ([facility])[address] [place] [address] Basophils/100 WBC (Bld) 0.3 % Normal 0.0-1.0 [facility] Comment on above: Performed By: #### L [id number] ####[facility] ([facility])[address] [place] [address] Eosinophils (Bld) [#/Vol] 0.07 10*3/uL Normal 0.00-0.50 [facility] Comment on above: Performed By: #### L [id number] ####[facility] [place] [address] Eosinophils/100 WBC (Bld) 1.1 % Normal 0.0-6.0 [facility] Comment on above: Performed By: #### L [id number] ####[facility] ([facility])[address] [place] [address] Erythrocyte distribution width (RBC) [Ratio] 13.5 % Normal 11.5-15.0 [facility] Comment on above: Performed By: #### L [id number] ####[facility] ([facility])[address] [place] [address] ERYTHROCYTE MEAN CORPUSCULAR HEMOGLOBIN CONCENTRATION (G/DL) BY AUTOMATED 31.0 g/dL Low 32.0-35.0 [facility] Comment on above: Performed By: #### L [id number] ####[facility] ([facility])[address] [place] [address] Hematocrit (Bld) [Volume fraction] 27.4 % Low 36.0-48.0 [facility] Comment on above: Performed By: #### L [id number] ####[facility] ([facility])[address] [place] [address] Hemoglobin (Bld) [Mass/Vol] 8.5 g/dL Low 12.0-15.0 [facility] Comment on above: Performed By: #### L [id number] ####[facility] ([facility])[address] [place] [address] Immature granulocytes (Bld) [#/Vol] 0.05 10*3/uL Normal 0.00-0.20 [facility] Comment on above: Performed By: #### L [id number] ####[facility] ([facility])[address] [place] [address] Immature granulocytes/100 WBC (Bld) 0.8 % Normal 0.0-1.0 [facility] Comment on above: Performed By: #### L [id number] ####[facility] [place] [address] Lymphocytes (Bld) [#/Vol] 0.83 10*3/uL Low 1.20-4.00 [facility] Comment on above: Performed By: #### L [id number] ####[facility] ([facility])[address] [place] [address] Lymphocytes/100 WBC (Bld) 13.0 % Low 20.0-45.0 [facility] Comment on above: Performed By: #### L [id number] ####[facility] ([facility])[address] [place] [address] MCH (RBC) [Entitic mass] 30.7 pg Normal 27.0-33.0 [facility] Comment on above: Performed By: #### L [id number] ####[facility] ([facility])[address] [place] [address] MCV (RBC) [Entitic vol] 98.9 fL High 82.0-98.0 [facility] Comment on above: Performed By: #### L [id number] ####[facility] ([facility])[address] [place] [address] Monocytes (Bld) [#/Vol] 0.45 10*3/uL Normal 0.10-1.00 [facility] Comment on above: Performed By: #### L [id number] ####[facility] ([facility])[address] [place] [address] Monocytes/100 WBC (Bld) 7.0 % Normal 5.0-12.0 [facility] Comment on above: Performed By: #### L [id number] ####[facility] ([facility])[address] [place] [address] Neutrophils (Bld) [#/Vol] 4.97 10*3/uL Normal 1.60-7.60 [facility] Comment on above: Performed By: #### L [id number] ####[facility] ([facility])[address] [place] [address] Neutrophils/100 WBC (Bld) 77.8 % High 40.0-72.0 [facility] Comment on above: Performed By: #### L [id number] ####[facility] ([facility])[address] [place] [address] NRBC (PER 100 WBCS) BY AUTOMATED COUNT 0.0 % Normal 0 [facility] Comment on above: Performed By: #### L [id number] ####[facility] ([facility])[address] [place] [address] PLATELETS (10*3/UL) IN BLOOD AUTOMATED COUNT 245 10*3/uL Normal 150-400 [facility] Comment on above: Performed By: #### L [id number] ####[facility] ([facility])[address] [place] [address] RBC (Bld) [#/Vol] 2.77 10*6/uL Low 3.80-5.00 [facility] Comment on above: Performed By: #### L [id number] ####[facility] ([facility])[address] [place] [address] WBC (Bld) [#/Vol] 6.39 10*3/uL Normal 4.00-10.60 [facility] Comment on above: Performed By: #### L [id number] ####[facility] ([facility])[address] [place] [address] FERRITINon 07-28-2023 FERRITIN (NG/ML) IN SER/PLAS 53.0 ng/mL Normal 11.0-307.0 [facility] Comment on above: Performed By: #### L [id number] #### [facility] ([facility]) [address] [place] [address] FOLATEon 07-28-2023 FOLATE (NG/ML) IN SER/PLAS 8.99 ng/mL Normal 6.6-1000 [facility] Comment on above: Performed By: #### L [id number] ####[facility] ([facility])[address] [place] [address] IRON AND TIBCon 07-28-2023 IRON (UG/DL) IN SER/PLAS 53 ug/dL Normal 50-212 [facility] Comment on above: Performed By: #### L [id number] ####[facility] ([facility])[address] [place] [address] IRON BINDING CAPACITY (UG/DL) IN SER/PLAS 285 ug/dL Normal 250-450 [facility] Comment on above: Performed By: #### L [id number] ####[facility] [place] [address] IRON BINDING CAPACITY.UNSATURATED (UG/DL) IN SER/PLAS 232.0 ug/dL Normal 155.0-355.0 [facility] Comment on above: Performed By: #### L [id number] ####[facility] ([facility])[address] [place] [address] IRON SATURATION (%) IN SER/PLAS 19 % Low 20-50 [facility] Comment on above: Performed By: #### L [id number] ####[facility] [place] [address] MAGNESIUMon 07-28-2023 Magnesium [Mass/Vol] 1.6 mg/dL Low 1.9-2.7 [facility] Comment on above: Performed By: #### L [id number] ####[facility] ([facility])[address] [place] [address] RETICULOCYTE PANELon 024 HEMOGLOBIN (PG) IN RETICULOCYTES 33.8 pg Normal 28.0-36.0 [facility] Comment on above: Performed By: #### L [id number] ####[facility] ([facility])[address] [place] [address] IMMATURE RETICULOCYTE FRACTION (%) 8.5 % Normal 2-16 [facility] Comment on above: Performed By: #### L [id number] ####[facility] ([facility])[address] [place] [address] RETICULOCYTES (10*6/UL) IN BLOOD 0.0535 10*6/uL Normal 0.0250-0.100 0 [facility] Comment on above: Performed By: #### L [id number] ####[facility] ([facility])[address] [place] [address] Reticulocytes/100 RBC (Bld) 1.96 % High 0.50-1.80 [facility] Comment on above: Performed By: #### L [id number] ####[facility] ([facility])[address] [place] [address] TROPONIN Ion 07-28-2023 Troponin I.cardiac [Mass/Vol] 0.01 ng/mL Normal 0.00-0.04 [facility] Comment on above: Performed By: #### L [id number] #### [facility] ([facility]) [address] [place] [address] URINALYSIS MICROSCOPIC WITH REFLEX CULTUREon 07-28-2023 CASTS IN URINE Normal [facility] Comment on above: Performed By: #### L [id number] #### [facility] ([facility]) [address] [place] [address] CRYSTALS IN URINE Normal [facility] Comment on above: Performed By: #### L [id number] #### [facility] ([facility]) [address] [place] [address] MUCUS (#/HPF) IN URINE SEDIMENT Occasional Normal None Seen, Occasional, Few [facility] Comment on above: Performed By: #### L [id number] #### [facility] ([facility]) [address] [place] [address] OTHER MICROSCOPIC ELEMENTS Normal [facility] Comment on above: Performed By: #### L [id number] #### [facility] ([facility]) [address] [place] [address] RBC (#/HPF) IN URINE SEDIMENT None Seen Normal None Seen [facility] Comment on above: Performed By: #### L [id number] #### [facility] ([facility]) [address] [place] [address] SQUAMOUS EPITHELIAL CELLS (#/HPF) IN URINE SEDIMENT Few Abnormal None Seen, Occasional [facility] Comment on above: Performed By: #### L [id number] #### [facility] [address] [place] [address] WBC (LEUKOCYTE) (#/HPF) IN URINE SEDIMENT 0-2 Abnormal None Seen [facility] Comment on above: Performed By: #### L [id number] #### [facility] ([facility]) [address] [place] [address] URINALYSIS WITH REFLEX CULTU REon 07-28-2023 BILIRUBIN, TOTAL PRESENCE IN URINE Negative Normal Negative [facility] Comment on above: Performed By: #### L [id number] ####[facility] ([facility])[address] [place] [address] Clarity (U) Clear Normal Clear [facility] Comment on above: Performed By: #### L [id number] ####[facility] ([facility])[address] [place] [address] Color (U) Straw Abnormal Yellow [facility] Comment on above: Performed By: #### L [id number] ####[facility] ([facility])[address] [place] [address] Glucose (U) [Mass/Vol] Negative Normal Negative [facility] Comment on above: Performed By: #### L [id number] ####[facility] ([facility])[address] [place] [address] HEMOGLOBIN PRESENCE IN URINE Small Abnormal Negative [facility] Comment on above: Performed By: #### L [id number] ####[facility] ([facility])[address] [place] [address] Ketones Ql (U) Negative Normal Negative [facility] Comment on above: Performed By: #### L [id number] ####[facility] ([facility])[address] [place] [address] LEUKOCYTE ESTERASE PRESENCE IN URINE BY TEST STRIP Negative Normal Negative [facility] Comment on above: Performed By: #### L [id number] ####[facility] ([facility])[address] [place] [address] NITRITE PRESENCE IN URINE Negative Normal Negative [facility] Comment on above: Performed By: #### L [id number] ####[facility] ([facility])[address] [place] [address] pH (U) 5.0 [pH] Normal 5.0-8.0 [facility] Comment on above: Performed By: #### L [id number] ####[facility] ([facility])[address] [place] [address] Protein (U) [Mass/Vol] Negative Normal Negative Un [facility] Comment on above: Performed By: #### L [id number] ####[facility] [place] [address] Specific gravity (U) [Rel density] 1.011 Low 1.015-1.020 [facility] Comment on above: Performed By: #### L [id number] ####[facility] ([facility])[address] [place] [address] VENOUS BLOOD GAS WITH IONIZE D CALCIUMon 07-28-2023 Base excess Calc (BldV) [Moles/Vol] -7.1000 mmol/L Normal [facility] Comment on above: Performed By: #### L [id number] #### [facility] ([facility]) [address] [place] [address] CALCIUM IONIZED (MMOL/L) IN BLOOD 1.03 mmol/L Low 1.15-1.33 [facility] Comment on above: Performed By: #### L [id number] #### [facility] [address] [address] CO2 (BldV) [Partial pressure] 41 mm[Hg] Normal 40-50 [facility] Comment on above: Performed By: #### L [id number] #### [facility] [address] [address] HCO3 (Bld) [Moles/Vol] 19.3 mmol/L Normal U [facility] Comment on above: Performed By: #### L [id number] #### [facility] [address] [place] [address] Oxygen (BldV) [Partial pressure] 42 mm[Hg] Normal 35-45 [facility] Comment on above: Performed By: #### L [id number] #### [facility] ([facility]) [address] [place] [address] OXYGEN SATURATION (%) IN VENOUS BLOOD 70.5 % Normal 65.0-75.0 [facility] Comment on above: Performed By: #### L [id number] #### [facility] ([facility]) [address] [place] [address] PH OF VENOUS BLOOD 7.28 Low 7.31-7.41 [facility] Comment on above: Performed By: #### L [id number] #### [facility] [address] [place] [address] Office Visiton 07-13-2023 Follow-up visit [id number] Lorne Moser 1960 F Date Provider Department Center 07/13/2023 BENJIE LERMA YVONNE Chadnler Family History Family history unknown: Yes Level of Service:19344 LA OFFICE/OUTPATIENT ESTABLISHED LOW MDM 20 MIN Normal [facility] Absolute reticulocyte countO rdered By: Los Grissom on 07-03-2023 Reticulocytes (Bld) [#/Vol] 0.039 10*6/uL 0.024-0.084 [facility] Basic Metabolic Panelon Creatinine Clr Calc Pharmacy 25.88 [facility] Comment on above: Performed By: #### V [id number], MG, BMP, JOSE, FE and TIBC, RETIC #### [facility] [address] [id number] [place] GFR/1.73 sq M.predicted MDRD (S/P/Bld) [Vol rate/Area] 23.348 mL/min/{1.73_m2} [facility] Comment on above: Performed By: #### V [id number], MG, BMP, JOSE, FE and TIBC, RETIC #### [facility] [address] Calcium [Mass/volume] in Ser um or PlasmaOrdered By: Jim Randhawa on 07-03-2023 Calcium [Mass/Vol] 8.3 mg/dL Low 8.6-10.3 [facility] Comment on above: Performed By: #### V [id number], MG, BMP, JOSE, FE and TIBC, RETIC #### [facility] [address] [place] [address] Carbon dioxide, total [Moles /volume] in Serum or PlasmaOrdered By: Jim Randhawa on 07-03-2023 CO2 [Moles/Vol] 20.4 mmol/L Low 21.0-31.0 [facility] Comment on above: Performed By: #### V [id number], MG, BMP, JOSE, FE and TIBC, RETIC #### [facility] [address] [place] [address] [place] Chloride [Moles/volume] in S andrea or PlasmaOrdered By: Jim Randhawa on 07-03-2023 Chloride [Moles/Vol] 106 mmol/L Normal 98-107 [facility] Comment on above: Performed By: #### V [id number], MG, BMP, JOSE, FE and TIBC, RETIC #### [facility] [address] [place] [address] Creatinine [Mass/volume] in Serum or PlasmaOrdered By: Jim Randhawa on 07-03-2023 Creatinine [Mass/Vol] 2.32 mg/dL High 0.60-1.20 [facility] Comment on above: Performed By: #### V [id number], MG, BMP, JOSE, FE and TIBC, RETIC #### [facility] [address] [place] [address] ECH echo transthoracicon ECH echo transthoracic [facility] [place] [address] [place] [address] Echocardiogram Signed Patient: Mabel Moser MR#: [id number] : 1960 Acct:[id number] Age/Sex: 63 / F ADM Date: 06/29/23 Loc: 3T Room: [address] [place] [address] Type: DIS IN Attending Dr: Jim Randhawa DO Ordering Provider: Jim Randhawa DO Date of Service: 07/02/2301/16/859 ECH/ECH echo transthoracic: swelling Copies to: MD Jim Meyer DO Weight: 189 lb Performed By: Judah Pinto [facility] BSA: 1.9 m2 BP: 112/75 mmHg HR: [...] FS: 40.8 % Ao root area: 7.8 [id number] ap4: 8.4 cm TAPSE: 2.6 cm EDV(Teich): [...] max P.6 mmHg RAP systole: 3.0 mmHg ___ Transcribed By: BUBBA Performed At: 07/03/23 1155 Signed By: Benjie Leach MD 07/03/23 1445 Normal [facility] Ferritin [Mass/volume] in Se rum or PlasmaOrdered By: Los Grissom on 07-03-2023 Ferritin [Mass/Vol] 71.9 ng/mL Normal 11.0-306.8 [facility] Comment on above: Performed By: #### V [id number], MG, BMP, JOSE, FE and TIBC, RETIC #### [facility] [address] Folate [Mass/volume] in Seru m or PlasmaOrdered By: Los Grissom on 07-03-2023 Folate [Mass/Vol] 11.1 ng/mL >5.9 [facility] Comment on above: Folate reference ran ge: >5.9 ng/mlThe WHO technical consultation on folate and vitamin [id number] has determined that folate concentrations lessthan 4 ng/ml are considered deficient. Glucose [Mass/volume] in Ser um or PlasmaOrdered By: Jim Randhawa on 07-03-2023 Glucose [Mass/Vol] 99 mg/dL Normal 70-100 [facility] Comment on above: ADA recommended refe rence rangeRandom Glucose Reference Range is dependent on time and content of last meal. Glucose of more than 200 mg/dL in a nonstressed, ambulatory subject supports the diagnosis of Diabetes Mellitus. Result Comment: [place] [facility] Glucose Reference Range is dependent on time and content of last meal. Glucose of more than 200 mg/dL in a nonstressed, ambulatory subject supports the diagnosis of Diabetes Mellitus. ADA recommended reference range Performed By: #### V [id number], MG, BMP, JOSE, FE and TIBC, RETIC #### [facility] [address] Iron [Mass/volume] in Serum or PlasmaOrdered By: Los Grissom on 07-03-2023 Iron [Mass/Vol] 59 ug/dL Normal 50-212 [facility] Comment on above: Performed By: #### V [id number], MG, BMP, JOSE, FE and TIBC, RETIC #### [facility] [address] Iron and TIBC Profileon % Iron Saturation 22.8 % Normal 20-50 [facility] Comment on above: Performed By: #### V [id number], MG, BMP, JOSE, FE and TIBC, RETIC #### [address] Total Iron Binding Capacity 259 ug/dL Normal 255-450 [facility] Comment on above: Performed By: #### V [id number], MG, BMP, JOSE, FE and TIBC, RETIC #### [address] Iron binding capacity [Mass/ volume] in Serum or PlasmaOrdered By: Los Grissom on 07-03-2023 Iron binding capacity [Mass/Vol] 259 ug/dL 255-450 [facility] Iron saturation [Mass Fracti on] in Serum or PlasmaOrdered By: Los Grissom on 07-03-2023 Iron saturation [Mass fraction] 22.8 % 20-50 [facility] Magnesium [Mass/volume] in S andrea or PlasmaOrdered By: Jim Randhawa on 07-03-2023 Magnesium [Mass/Vol] 2.0 mg/dL Normal 1.9-2.7 [facility] Comment on above: Performed By: #### V [id number], MG, BMP, JOSE, FE and TIBC, RETIC #### [facility] [address] [place] [address] No Panel InformationOrdered By: Jim Randhawa on 07-03-2023 Estimated GFR (CKD-EPI) 23.348 mL/Min [facility] Creatinine Clearance (Chem 25.88 [facility] Potassium [Moles/volume] in Serum or PlasmaOrdered By: Jim Randhawa on 07-03-2023 Potassium [Moles/Vol] 3.9 mmol/L Normal 3.5-5.1 [facility] Comment on above: Performed By: #### V [id number], MG, BMP, JOSE, FE and TIBC, RETIC #### [facility] [address] Reticulocyte Counton 024 Reticulocyte Number 0.039 10*6/uL Normal 0.024-0.084 [facility] Comment on above: Result Comment: PERF ORMED BY: [place] [address] PATHOLOGIST SCIENCE MANAGER TANNER GAVIN M.D. Performed By: #### V [id number], MG, BMP, JOSE, FE and TIBC, RETIC #### [address] Reticulocyte Percent 1.5 % Normal 0.5-1.5 [facility] Comment on above: Performed By: #### V [id number], MG, BMP, JOSE, FE and TIBC, RETIC #### [place] [address] [place] Reticulocytes/100 RBC Auto ( Bld)Ordered By: Los Grissom on 07-03-2023 Reticulocytes/100 RBC (Bld) 1.5 % 0.5-1.5 [facility] Serum or plasma anion gap de terminationOrdered By: Jim Randhawa on 07-03-2023 Anion gap [Moles/Vol] 11.5 mmol/L Normal 6.0-15.0 [facility] Comment on above: Performed By: #### V [id number], MG, BMP, JOSE, FE and TIBC, RETIC #### [place] [address] [place] Sodium [Moles/volume] in Ser um or PlasmaOrdered By: Jim Randhawa on 07-03-2023 Sodium [Moles/Vol] 134 mmol/L Low 136-145 [facility] Comment on above: Performed By: #### V [id number], MG, BMP, JOSE, FE and TIBC, RETIC #### [facility] [address] [place] [address] Transferrin [Mass/volume] in Serum or PlasmaOrdered By: Los Grissom on 07-03-2023 Transferrin [Mass/Vol] 185 mg/dL Low 203-362 [facility] Comment on above: Performed By: #### V [id number], MG, BMP, JOSE, FE and TIBC, RETIC #### [facility] [address] [place] [address] Urea nitrogen [Mass/volume] in Serum or PlasmaOrdered By: Jim Randhawa on 07-03-2023 Urea nitrogen [Mass/Vol] 95 mg/dL High 7-25 [facility] Comment on above: Performed By: #### V [id number], MG, BMP, JOSE, FE and TIBC, RETIC #### [facility] [address] [place] [address] Vit. B12/Folate Profileon Folate 11.1 ng/mL Normal >5.9 [facility] Comment on above: Result Comment: Sandra te reference range: >5.9 ng/ml The WHO technical consultation on folate and vitamin b12 deficiencies has determined that folate concentrations less than 4 ng/ml are considered deficient. PERFORMED BY: [place] [address] PATHOLOGIST SCIENCE MANAGER TANNER GAVIN M.D. Performed By: #### V [id number], MG, BMP, JOSE, FE and TIBC, RETIC #### [address] Vitamin B12 ser/plasOrdered By: Los Grissom on 07-03-2023 Cobalamin (Vitamin B12) [Mass/Vol] 3564 pg/mL High 180-914 [facility] Comment on above: Performed By: #### V [id number], MG, BMP, JOSE, FE and TIBC, RETIC #### [facility] [address] Basic Metabolic Panelon Anion gap [Moles/Vol] 11.0 mmol/L Normal 6.0-15.0 [facility] Comment on above: Performed By: #### V [id number], MG, BMP, JOSE, FE and TIBC, RETIC #### [address] Calcium [Mass/Vol] 8.4 mg/dL Low 8.6-10.3 [facility] Comment on above: Performed By: #### V [id number], MG, BMP, JOSE, FE and TIBC, RETIC #### [address] Chloride [Moles/Vol] 104 mmol/L Normal 98-107 [facility] Comment on above: Performed By: #### V [id number], MG, BMP, JOSE, FE and TIBC, RETIC #### [address] CO2 [Moles/Vol] 20.2 mmol/L Low 21.0-31.0 [facility] Comment on above: Performed By: #### V [id number], MG, BMP, JOSE, FE and TIBC, RETIC #### [facility] [address] [place] [address] Creatinine [Mass/Vol] 2.31 mg/dL High 0.60-1.20 [facility] Comment on above: Performed By: #### V [id number], MG, BMP, JOSE, FE and TIBC, RETIC #### [facility] [address] [place] [address] Creatinine Clr Calc Pharmacy 26.22 [facility] Comment on above: Performed By: #### V [id number], MG, BMP, JOSE, FE and TIBC, RETIC #### [place] [address] [place] GFR/1.73 sq M.predicted MDRD (S/P/Bld) [Vol rate/Area] 23.469 mL/min/{1.73_m2} Normal [facility] Comment on above: Performed By: #### V [id number], MG, BMP, JOSE, FE and TIBC, RETIC #### [facility] [address] Glucose [Mass/Vol] 89 mg/dL Normal 70-100 [facility] Comment on above: Result Comment: [facility] Glucose Reference Range is dependent on time and content of last meal. Glucose of more than 200 mg/dL in a nonstressed, ambulatory subject supports the diagnosis of Diabetes Mellitus. ADA recommended reference range Performed By: #### V [id number], MG, BMP, JOSE, FE and TIBC, RETIC #### [facility] [address] Potassium [Moles/Vol] 4.2 mmol/L Normal 3.5-5.1 [facility] Comment on above: Performed By: #### V [id number], MG, BMP, JOSE, FE and TIBC, RETIC #### [facility] [address] Sodium [Moles/Vol] 131 mmol/L Low 136-145 [facility] Comment on above: Performed By: #### V [id number], MG, BMP, JOSE, FE and TIBC, RETIC #### [address] Urea nitrogen [Mass/Vol] 100 mg/dL High 7-25 [facility] Comment on above: Performed By: #### V [id number], MG, BMP, JOSE, FE and TIBC, RETIC #### [facility] [address] Erythrocyte distribution wid th Auto (RBC) [Ratio]Ordered By: Jim Randhawa on 07-02-2023 Erythrocyte distribution width (RBC) [Ratio] 14.2 % 11.9-15.3 [facility] Hematocrit Auto (Bld) [Volum e fraction]Ordered By: Jim Randhawa on 07-02-2023 Hematocrit (Bld) [Volume fraction] 25.0 % 34.0-46.4 [facility] Hemoglobin [Mass/volume] in BloodOrdered By: Jim Randhawa on 07-02-2023 Hemoglobin (Bld) [Mass/Vol] 8.4 g/dL 11.8-15.4 [facility] Hemogram CBC Without Diffon 07-02-2023 Erythrocyte distribution width (RBC) [Ratio] 14.2 % Normal 11.9-15.3 [facility] Comment on above: Performed By: #### V [id number], MG, BMP, JOSE, FE and TIBC, RETIC #### [address] Hematocrit (Bld) [Volume fraction] 25.0 % Low 34.0-46.4 [facility] Comment on above: Performed By: #### V [id number], MG, BMP, JOSE, FE and TIBC, RETIC #### [address] Hemoglobin (Bld) [Mass/Vol] 8.4 g/dL Low 11.8-15.4 [facility] Comment on above: Performed By: #### V [id number], MG, BMP, JOSE, FE and TIBC, RETIC #### [address] MCH (RBC) [Entitic mass] 32.3 pg Normal 24.7-34.3 [facility] Comment on above: Performed By: #### V [id number], MG, BMP, JOSE, FE and TIBC, RETIC #### [address] MCV (RBC) [Entitic vol] 96.6 fL Normal 80-100 [facility] Comment on above: Performed By: #### V [id number], MG, BMP, JOSE, FE and TIBC, RETIC #### [address] Mean Corpuscular HGB Conc 33.4 g/dL Normal 32.0-35.0 [facility] Comment on above: Performed By: #### V [id number], MG, BMP, JOSE, FE and TIBC, RETIC #### [address] Platelet mean volume (Bld) [Entitic vol] 7.7 fL Normal 6.3-10.7 [facility] Comment on above: Result Comment: PERF ORMED BY: [place] [address] PATHOLOGIST SCIENCE MANAGER TANNER GAVIN M.D. Performed By: #### V [id number], MG, BMP, JOSE, FE and TIBC, RETIC #### [address] Platelets (Bld) [#/Vol] 217 10*3/uL Normal 150-450 [facility] Comment on above: Performed By: #### V [id number], MG, BMP, JOSE, FE and TIBC, RETIC #### [address] RBC (Bld) [#/Vol] 2.59 10*6/uL Low 3.60-5.00 [facility] Comment on above: Performed By: #### V [id number], MG, BMP, JOSE, FE and TIBC, RETIC #### [address] WBC (Bld) [#/Vol] 6.1 10*3/uL Normal 3.8-11.6 [facility] Comment on above: Performed By: #### V [id number], MG, BMP, JOSE, FE and TIBC, RETIC #### [address] Leukocytes [#/volume] correc nicol for nucleated erythrocytes in Blood by Automated counOrdered By: Jim Randhawa on 07-02-2023 WBC corrected for nucl RBC Auto (Bld) [#/Vol] 6.1 10*3/uL 3.8-11.6 [facility] MCH Auto (RBC) [Entitic mass ]Ordered By: Jim Randhawa on 07-02-2023 MCH (RBC) [Entitic mass] 32.3 pg 24.7-34.3 [facility] MCHC Auto (RBC) [Mass/Vol]Or dered By: Jim Randhawa on 07-02-2023 MCHC (RBC) [Mass/Vol] 33.4 g/dL 32.0-35.0 [facility] MCV Auto (RBC) [Entitic vol] Ordered By: Jim Randhawa on 07-02-2023 MCV (RBC) [Entitic vol] 96.6 fL 80-100 [facility] Magnesiumon 07-02-2023 Magnesium [Mass/Vol] 2.1 mg/dL Normal 1.9-2.7 [facility] Comment on above: Result Comment: PERF ORMED BY: [place] [address] PATHOLOGIST SCIENCE MANAGER TANNER GAVIN M.D. Performed By: #### V [id number], MG, BMP, JOSE, FE and TIBC, RETIC #### [facility] [address] Platelet mean volume Auto (B ld) [Entitic vol]Ordered By: Jim Randhawa on 07-02-2023 Platelet mean volume (Bld) [Entitic vol] 7.7 fL 6.3-10.7 [facility] Platelets Auto (Bld) [#/Vol] Ordered By: Jim Randhawa on 07-02-2023 Platelets (Bld) [#/Vol] 217 10*3/uL 150-450 [facility] RBC Auto (Bld) [#/Vol]Ordere d By: Jim Randhawa on 07-02-2023 RBC (Bld) [#/Vol] 2.59 10*6/uL 3.60-5.00 [facility] Basic Metabolic Panelon Anion gap [Moles/Vol] 11.9 mmol/L Normal 6.0-15.0 [facility] Comment on above: Order Comment: LINE DRAW Performed By: #### V [id number], MG, BMP, JOSE, FE and TIBC, RETIC #### [facility] [address] [place] [address] Calcium [Mass/Vol] 8.9 mg/dL Normal 8.6-10.3 [facility] Comment on above: Order Comment: LINE DRAW Performed By: #### V [id number], MG, BMP, JOSE, FE and TIBC, RETIC #### [facility] [address] [place] [address] Chloride [Moles/Vol] 108 mmol/L High 98-107 [facility] Comment on above: Order Comment: LINE DRAW Performed By: #### V [id number], MG, BMP, JOSE, FE and TIBC, RETIC #### [address] CO2 [Moles/Vol] 18.5 mmol/L Low 21.0-31.0 [facility] Comment on above: Order Comment: LINE DRAW Performed By: #### V [id number], MG, BMP, JOSE, FE and TIBC, RETIC #### [facility] [address] [place] [address] Creatinine [Mass/Vol] 2.63 mg/dL Significan t change up 0.60-1.20 [facility] Comment on above: Order Comment: LINE DRAW Performed By: #### V [id number], MG, BMP, JOSE, FE and TIBC, RETIC #### [facility] [address] [place] [address] Creatinine Clr Calc Pharmacy 23.09 [facility] Comment on above: Order Comment: LINE DRAW Performed By: #### V [id number], MG, BMP, JOSE, FE and TIBC, RETIC #### [facility] [address] [place] [address] GFR/1.73 sq M.predicted MDRD (S/P/Bld) [Vol rate/Area] 20.085 mL/min/{1.73_m2} [facility] Comment on above: Order Comment: LINE DRAW Performed By: #### V [id number], MG, BMP, JOSE, FE and TIBC, RETIC #### [facility] [address] Glucose [Mass/Vol] 128 mg/dL High 70-100 [facility] Comment on above: Order Comment: LINE DRAW Result Comment: [place] Glucose Reference Range is dependent on time and content of last meal. Glucose of more than 200 mg/dL in a nonstressed, ambulatory subject supports the diagnosis of Diabetes Mellitus. ADA recommended reference range Performed By: #### V [id number], MG, BMP, JOSE, FE and TIBC, RETIC #### [facility] [address] Potassium [Moles/Vol] 4.4 mmol/L Normal 3.5-5.1 [facility] Comment on above: Order Comment: LINE DRAW Performed By: #### V [id number], MG, BMP, JOSE, FE and TIBC, RETIC #### [facility] [address] Sodium [Moles/Vol] 134 mmol/L Low 136-145 [facility] Comment on above: Order Comment: LINE DRAW Performed By: #### V [id number], MG, BMP, JOSE, FE and TIBC, RETIC #### [facility] [address] Urea nitrogen [Mass/Vol] 104 mg/dL High 7-25 [facility] Comment on above: Order Comment: LINE DRAW Performed By: #### V [id number], MG, BMP, JOSE, FE and TIBC, RETIC #### [facility] [address] Magnesiumon 07-01-2023 Magnesium [Mass/Vol] 2.3 mg/dL Normal 1.9-2.7 [facility] Comment on above: Order Comment: LINE DRAW Result Comment: PERF ORMED BY: [place] [address] PATHOLOGIST SCIENCE MANAGER TANNER GAVIN M.D. Performed By: #### V [id number], MG, BMP, JOSE, FE and TIBC, RETIC #### [facility] [address] Basic Metabolic Panelon Anion gap [Moles/Vol] 14.6 mmol/L Normal 6.0-15.0 [facility] Comment on above: Performed By: #### V [id number], MG, BMP, JOSE, FE and TIBC, RETIC #### [facility] [address] Calcium [Mass/Vol] 8.6 mg/dL Normal 8.6-10.3 [facility] Comment on above: Performed By: #### V [id number], MG, BMP, JOSE, FE and TIBC, RETIC #### [facility] [address] Chloride [Moles/Vol] 109 mmol/L High 98-107 [facility] Comment on above: Performed By: #### V [id number], MG, BMP, JOSE, FE and TIBC, RETIC #### [address] CO2 [Moles/Vol] 15.0 mmol/L Low 21.0-31.0 [facility] Comment on above: Performed By: #### V [id number], MG, BMP, JOSE, FE and TIBC, RETIC #### [address] Creatinine [Mass/Vol] 3.16 mg/dL High 0.60-1.20 [facility] Comment on above: Performed By: #### V [id number], MG, BMP, JOSE, FE and TIBC, RETIC #### [facility] [address] [place] [address] Creatinine Clr Calc Pharmacy 19.26 [facility] Comment on above: Performed By: #### V [id number], MG, BMP, JOSE, FE and TIBC, RETIC #### [facility] 1111 [place] [address] [place] GFR/1.73 sq M.predicted MDRD (S/P/Bld) [Vol rate/Area] 16.114 mL/min/{1.73_m2} Normal [facility] Comment on above: Performed By: #### V [id number], MG, BMP, JOSE, FE and TIBC, RETIC #### [facility] [address] Glucose [Mass/Vol] 79 mg/dL Normal 70-100 [facility] Comment on above: Result Comment: [facility] Glucose Reference Range is dependent on time and content of last meal. Glucose of more than 200 mg/dL in a nonstressed, ambulatory subject supports the diagnosis of Diabetes Mellitus. ADA recommended reference range Performed By: #### V [id number], MG, BMP, JOSE, FE and TIBC, RETIC #### [address] Potassium [Moles/Vol] 4.6 mmol/L Normal 3.5-5.1 [facility] Comment on above: Performed By: #### V [id number], MG, BMP, JOSE, FE and TIBC, RETIC #### [facility] [address] Sodium [Moles/Vol] 134 mmol/L Low 136-145 [facility] Comment on above: Performed By: #### V [id number], MG, BMP, JOSE, FE and TIBC, RETIC #### [facility] 1111 [place] [address] [place] Urea nitrogen [Mass/Vol] 117 mg/dL High 7-25 [facility] Comment on above: Performed By: #### V [id number], MG, BMP, JOSE, FE and TIBC, RETIC #### [facility] [address] [place] [address] [place] Magnesiumon 06-30-2023 Magnesium [Mass/Vol] 2.5 mg/dL Normal 1.9-2.7 [facility] Comment on above: Result Comment: PERF ORMED BY: [address] [place] [address] PATHOLOGIST SCIENCE MANAGER TANNER GAVIN M.D. Performed By: #### V [id number], MG, BMP, JOSE, FE and TIBC, RETIC #### [address] 36on 04-10-2023 36 Patient states she n eeds to cancel her surgery due to her son being on the transplant list, states she would like to reschedule. Normal [facility] Orders Onlyon 04-05-2023 Orders Only [id number] Loren Moser A 1960 F Date Provider Department Center 04/05/2023 [facility] Family History Family history unknown: Yes [facility] Office Visiton 02-22-2023 Follow-up visit [id number] Loren Moser A 1960 Date Provider Department Center 02/22/2023 120-[facility]ON [facility] Family History Family history unknown: Yes Level of Service:15240 LA OFFICE/OUTPATIENT ESTABLISHED MOD MDM 30-39 MIN [facility] Follow-Upon 02-16-2023 Follow-Up [id number] Loren Moser A 1960 Provider Department Center 02/16/2023 [facility] Family History Family history unknown: Yes Level of Service:58252 LA OFFICE/OUTPATIENT ESTABLISHED LOW MDM 20-29 MIN Reason for Visit and Comments: Pain [136] [facility] Consultation Noteon 02-10-20 Consultation Note [id number]#1.00CD:12 7 [facility] 36on 02-08-2023 36 Called patient to in form her she needs the CT done before her follow up w/ alonzo. The appt has been cancelled and needs rescheduled. Normal [facility] Consultation Noteon 02-09-20 Consultation Note [id number]#1.00CD:12 7 [facility] RAD - MISCon 02-08-2023 [facility] [id number]:12 7 [facility] 29on 01-13-2023 29 Addended by: OLU TORRES on: 02/07/2023 12:47 PM Modules accepted: Orders [facility] Office Visiton 01-13-2023 Follow-up visit [id number] Loren Moser A 1960 F Date Provider Department Center 01/13/2023 [facility] Family History Family history unknown: Yes Level of Service:71711 LA OFFICE/OUTPATIENT NEW MODERATE MDM 45-59 MINUTES Reason for Visit and Comments: Pain [136] Pain [136] [facility] 36on 12-23-2022 36 Please tell her the renal function is much better now (creatinine 1.4 on 12/20/2022). I don't think she need to increase water pills. Follow up labs as scheduled. [facility] Telephoneon 12-23-2022 Telephone [id number] PinalorenLoren jones marii Ivy 1960 F Date Provider Department Center 12/23/2022 BENJIE LERMA YVONNE Chandler No family history on file [facility] Office Visiton 12-15-2022 Follow-up visit [id number] PinalorenrobertLorena Ivy 1960 F Date Provider Department Center 12/15/2022 BENJIE LERMA No family history on file Level of Service:13499 LA OFFICE/OUTPATIENT ESTABLISHED MOD MDM 30-39 MIN Reason for Visit and Comments: Follow-up [804051] [facility] HPon 11-30-2022 HP H&P reviewed. The car wasserman was examined and there are no changes to the H&P. [facility] NURSNOTEon 11-30-2022 NURSNOTE RN educated pt on d/ c instructions. RN encouraged pt to voice any questions or concerns. Pt verbalizes no questions or concerns at this time. Pt was walked off of unit with all of belongings. Normal [facility] Orders Onlyon 11-23-2022 Orders Only [id number] ShantiLoren marii Ivy 1960 F Date Provider Department Center 11/23/2022 [facility]O [facility] No family history on file Normal [facility] CBC AUTO DIFFon 11-22-2022 BASO # 0.0 103/ul Normal 0.0-0.1 [facility] Comment on above: Performed By: #### C BC ####[facility] [address] [place] [address]Dr. Airam Tripathi Basophils/100 WBC (Bld) 0.6 % Normal 0.2-2.0 [facility] Comment on above: Performed By: #### C BC ####[facility] Cecnqnzjpk[address] [place], [place] [address]Dr. Airam Tripathi EO # 0.1 103/ul Normal 0.0-0.7 [facility] Comment on above: Performed By: #### C BC ####[facility] Fftgzgjuob[address] [place], [place] [address]Dr. Airam Tripathi Eosinophils/100 WBC (Bld) 1.7 % Normal 0.9-7.0 [facility] Comment on above: Performed By: #### C BC ####[facility] Rvcdumqwzb[address] [place], [place] [address]Dr. Airam Tripathi Erythrocyte distribution width (RBC) [Ratio] 15.2 % Critically high 11.0-15.0 [facility] Comment on above: Performed By: #### C BC ####[facility] Urtlkdgxdl[address] [place], [place] [address]Dr. Airam Tripathi Hematocrit (Bld) [Volume fraction] 31.6 % Critically low 36.0-48.0 [facility] Comment on above: Performed By: #### C BC ####[facility] Pqkknjbiax[address] [place], [place] [address]Dr. Airam Tripathi Hemoglobin (Bld) [Mass/Vol] 9.9 g/dL Critically low 12.0-16.0 [facility] Comment on above: Performed By: #### C BC ####[facility] [address] [place] [id number]. Airam Tripathi IG # 0.02 10e3/ul Normal 0.00-0.03 [facility] Comment on above: Performed By: #### C BC ####[facility] [address] [place] [id number]. Airam Deuce IG % 0.4 % Normal 0.0-0.5 [facility] Comment on above: Performed By: #### C BC ####[facility] [address] [place] [address]Dr. Airam Tripathi LYMPH # 0.8 103/ul Critically low 1.2-3.8 [facility] Comment on above: Performed By: #### C BC ####[facility] [address]ztd[address] [place] [address]Dr. Airam Tripathi Lymphocytes/100 WBC (Bld) 16.9 % Critically low 20.5-60.0 [facility] Comment on above: Performed By: #### C BC ####[facility] [address]nslt[address]xd[address] [place] [id number] Tripathi MANUAL DIFF REQ NO Normal [facility] Comment on above: Performed By: #### C BC ####[facility] X[address]vnhadmq34[address] [place] [phone]. Selenaneil Tripathi MCH (RBC) [Entitic mass] 28.4 pg Normal 26.7-34.0 [facility] Comment on above: Performed By: #### C BC ####[facility] [address] [place], [place] [address]Dr. Airam Deuce MCHC (RBC) [Mass/Vol] 31.3 g/dL Normal 29.9-35.2 [facility] Comment on above: Performed By: #### C BC ####[facility] [address] [place] [phone]. Selenaneil Tripathi MCV (RBC) [Entitic vol] 90.8 fL Normal 81.0-99.0 [facility] Comment on above: Performed By: #### C BC ####[facility] Rkvukaqtfa64[address] [place] [phone]. Airam Tripathi MONO # 0.4 103/ul Normal 0.3-0.8 [facility] Comment on above: Performed By: #### C BC ####[facility] [address]flms[address] [place] [phone]. Airam Tripathi Monocytes/100 WBC (Bld) 8.9 % Normal 1.7-12.0 [facility] Comment on above: Performed By: #### C BC ####[facility] Scrhnilssl50[address] [place] [phone]. Airam Tripathi NEUT # 3.4 103/ul Normal 1.4-6.5 [facility] Comment on above: Performed By: #### C BC ####[facility] [address] [place] [address]Dr. Airam Tripathi Neutrophils/100 WBC (Bld) 71.5 % Normal 43.0-75.0 [facility] Comment on above: Performed By: #### C BC ####[facility] T[address]nz[address] [place] [phone]. Airam Tripathi Platelet mean volume (Bld) [Entitic vol] 9.4 fL Critically low 9.5-13.5 [facility] Comment on above: Performed By: #### C BC ####[facility] [address] [place] [phone]. Airam Tripathi PLT 302 103/ul Normal 150-450 [facility] Comment on above: Performed By: #### C BC ####[facility] Fdxsilthpl[address] [place], [place] [address]Dr. iAram Tripathi RBC 3.48 106/ul Critically low 4.20-5.40 [facility] Comment on above: Performed By: #### C BC ####[facility] Gv[address]zf[address]iho[address] [place], [place] [address]Dr. Airam Tripathi WBC 4.7 103/ul Normal 4.0-11.0 [facility] Comment on above: Performed By: #### C BC ####[facility] Pic[address]kblcf[address] [place] [address]Dr. Airam Tripathi PROF 14(COMP METB)on 023 Albumin [Mass/Vol] 3.4 g/dL Normal 3.4-5.0 [facility] Comment on above: Performed By: #### C MP ####[facility] Fbdjxukskd[address] [place], [place] [address]Dr. Airam Tripathi Albumin/Globulin [Mass ratio] 1.0 {ratio} Normal [facility] Comment on above: Performed By: #### C MP ####[facility] Droszmaovi[address] [place], [place] [address]Dr. Airam Tripathi ALP [Catalytic activity/Vol] 123 U/L Critically high 46-116 [facility] Comment on above: Performed By: #### C MP ####[facility] Iumvajfgef[address] [place], [place] [address]Dr. Airam Tripathi ALT [Catalytic activity/Vol] 24 U/L Normal 14-59 [facility] Comment on above: Performed By: #### C MP ####[facility] Bxpxorlrkb397[address] [place], [place] [address]Dr. Airam Tripathi Anion gap [Moles/Vol] 12.1 mmol/L Normal [facility] Comment on above: Performed By: #### C MP ####[facility] Rbqjighhok[address] [place], [place] [address]Dr. Airam Tripathi AST [Catalytic activity/Vol] 30 U/L Normal 15-37 [facility] Comment on above: Performed By: #### C MP ####[facility] Zrjhrluvrx120[address] [place], [place] [address]Dr. Airam Tripathi Bilirubin [Mass/Vol] 0.4 mg/dL Normal 0.2-1.0 [facility] Comment on above: Performed By: #### C MP ####[facility] Zojjwncoey[address] [place], [place] [address]Dr. Airam Tripathi Calcium [Mass/Vol] 8.9 mg/dL Normal 8.5-10.1 [facility] Comment on above: Performed By: #### C MP ####[facility] [address]udd[address] [place] [phone]. Airam Tripathi Chloride [Moles/Vol] 95 mmol/L Critically low 98-107 [facility] Comment on above: Performed By: #### C MP ####[facility] Dlawqmyrzm[address] [place], [place] [address]Dr. Airam Tripathi CO2 [Moles/Vol] 28.7 mmol/L Normal 21.0-32.0 [facility] Comment on above: Performed By: #### C MP ####[facility] Vptmpxsnse[address] [place], [place] [address]Dr. Airam Tripathi Creatinine [Mass/Vol] 1.25 mg/dL Critically high 0.55-1.02 [facility] Comment on above: Performed By: #### C MP ####[facility] Uvlyzmaqkr[address] [place], [place] [address]Dr. Airam Tripathi EGFR-AF ROMANIAN 53 mL/min/1.73m2 Critically low >=60 [facility] Comment on above: Performed By: #### C MP ####[facility] Yrrttqyqnt[address] [place], [place] [address]Dr. Airam Trpiathi EGFR-NON AF ROMANIAN 44 mL/min/1.73m2 Critically low >=60 [facility] Comment on above: Performed By: #### C MP ####[facility] Pxjbdsvxwm335[address] [place], [place] [address]Dr. Airam Tripathi Globulin (S) [Mass/Vol] 3.5 g/dL Normal [facility] Comment on above: Performed By: #### C MP ####[facility] Jvlkfgokbf8[address] [place], [place] [address]Dr. Airam Tripathi Glucose [Mass/Vol] 89 mg/dL Normal 74-106 [facility] Comment on above: Performed By: #### C MP ####[facility] Cpchkhmdpi[address] [place], [place] [address]Dr. Airam Tripathi Potassium [Moles/Vol] 4.8 mmol/L Normal 3.5-5.1 [facility] Comment on above: Performed By: #### C MP ####[facility] Ddos[address]jtfjc5[address] [place] [address]Dr. Airam Tripathi Protein [Mass/Vol] 6.9 g/dL Normal 6.4-8.2 [facility] Comment on above: Performed By: #### C MP ####[facility] Giijkidjnb[address] [place], [place] [address]Dr. Airam Tripathi Sodium [Moles/Vol] 131 mmol/L Critically low 136-145 [facility] Comment on above: Performed By: #### C MP ####[facility] Eubzzbvtvo29[address] [place], [place] [address]Dr. Airam Tripathi Urea nitrogen [Mass/Vol] 37.0 mg/dL Critically high 7.0-18.0 [facility] Comment on above: Performed By: #### C MP ####[facility] Dvhpijqtiu[address] [place], [place] [address]Dr. Airam Tripathi Urea nitrogen/Creatinine [Mass ratio] 29.6 mg/mg Normal [facility] Comment on above: Performed By: #### C MP ####[facility] Zwbdvyismj649[address] [place], [place] [address]Dr. Airam Tripathi OSMOLALITYon 11-18-2022 Osmolality [Osmolality] 293 mosm/kg Normal 275-295 [facility] Comment on above: Performed By: #### O SMO ####[facility] Koaabhvxct[address] [place], [place] [address]Dr. Airam Tripathi BNPon 11-16-2022 Natriuretic peptide B (Bld) [Mass/Vol] 1142.0 pg/mL Critically high <=900.0 [facility] Comment on above: Performed By: #### B COMMERCIAL LOAN OFFICER ####[facility] Eoufokysxl[address] [place], [place] [address]Dr. Airam Tripathi CBC AUTO DIFFon 11-16-2022 BASO # 0.0 103/ul Normal 0.0-0.1 [facility] Comment on above: Performed By: #### C BC ####[facility] Bvpiobkppn[address] [place], [place] [address]Dr. Airam Tripathi Basophils/100 WBC (Bld) 0.3 % Normal 0.2-2.0 [facility] Comment on above: Performed By: #### C BC ####[facility] Lqhnvxldsv[address] [place], [place] [address]Dr. Selenaneil Tripathi EO # 0.3 103/ul Normal 0.0-0.7 [facility] Comment on above: Performed By: #### C BC ####[facility] Zhlsivqcdx[address] [place], [place] [address]Dr. Airam Tripathi Eosinophils/100 WBC (Bld) 4.6 % Normal 0.9-7.0 [facility] Comment on above: Performed By: #### C BC ####[facility] Hufyvehmws[address] [place], [place] [address]Dr. Airam Tripathi Erythrocyte distribution width (RBC) [Ratio] 16.1 % Critically high 11.0-15.0 [facility] Comment on above: Performed By: #### C BC ####[facility] Ronizdigul01[address] [place], [place] [address]Dr. Airam Tripathi Hematocrit (Bld) [Volume fraction] 28.0 % Critically low 36.0-48.0 [facility] Comment on above: Performed By: #### C BC ####[facility] Yzvxfbbkup098[address] [place], [place] [address]Dr. Airam Tripathi Hemoglobin (Bld) [Mass/Vol] 8.9 g/dL Critically low 12.0-16.0 [facility] Comment on above: Performed By: #### C BC ####[facility] Ldvhovzaqk[address] [place], [place] [address]Dr. Airam Tripathi IG # 0.02 10e3/ul Normal 0.00-0.03 [facility] Comment on above: Performed By: #### C BC ####[facility] Vyolnamwcn[address] [place], [place] [address]Dr. Airam Tripathi IG % 0.3 % Normal 0.0-0.5 [facility] Comment on above: Performed By: #### C BC ####[facility] Zyijkwsbqd419[address] [place], [place] [address]Dr. Airam Tripathi LYMPH # 1.5 103/ul Normal 1.2-3.8 [facility] Comment on above: Performed By: #### C BC ####[facility] O[address]msa[address] [place] [address]Dr. Airam Tripathi Lymphocytes/100 WBC (Bld) 24.2 % Normal 20.5-60.0 [facility] Comment on above: Performed By: #### C BC ####[facility] U[address]pbqlgo[address] [place] [address]DrKianna Tripathi MANUAL DIFF REQ NO Normal [facility] Comment on above: Performed By: #### C BC ####[facility] Otywgifwdq4481 [place] [address]DrKianna Tripathi MCH (RBC) [Entitic mass] 29.3 pg Normal 26.7-34.0 [facility] Comment on above: Performed By: #### C BC ####[facility] Jmcqszlwyb[address] [place], [place] [address]Dr. Airam Tripathi MCHC (RBC) [Mass/Vol] 31.8 g/dL Normal 29.9-35.2 [facility] Comment on above: Performed By: #### C BC ####[facility] Gdkhyvzynh[address] [place], [place] [address]DrKianna Tripathi MCV (RBC) [Entitic vol] 92.1 fL Normal 81.0-99.0 [facility] Comment on above: Performed By: #### C BC ####[facility] Vudfsbjuyo[address] [place], [place] [address]DrKianna Tripathi MONO # 0.6 103/ul Normal 0.3-0.8 [facility] Comment on above: Performed By: #### C BC ####[facility] Pyjggnuibj033[address] [place], [place] [address]DrKianna Tripathi Monocytes/100 WBC (Bld) 10.0 % Normal 1.7-12.0 [facility] Comment on above: Performed By: #### C BC ####[facility] Qqmwpojbmr[address] [place], [place] [address]DrKianna Tripathi NEUT # 3.7 103/ul Normal 1.4-6.5 [facility] Comment on above: Performed By: #### C BC ####[facility] Qsvagsrolo5[address] [place] [address]Dr. Selenaneil Tripathi Neutrophils/100 WBC (Bld) 60.6 % Normal 43.0-75.0 [facility] Comment on above: Performed By: #### C BC ####[facility] J[address]etlsnfl[address] [place] [address]Dr. Airam Tripathi Platelet mean volume (Bld) [Entitic vol] 9.1 fL Critically low 9.5-13.5 [facility] Comment on above: Performed By: #### C BC ####[facility] Tonsgmmkdz[address] [place], [place] [address]Dr. Selenaneil Tripathi PLT 242 103/ul Normal 150-450 [facility] Comment on above: Performed By: #### C BC ####[facility] Ozlemtvwcw24[address] [place], [place] [address]Dr. Airam Tripathi RBC 3.04 106/ul Critically low 4.20-5.40 [facility] Comment on above: Performed By: #### C BC ####[facility] Yiflqushhh[address] [place], [place] [address]Dr. Selenaneil Tripathi WBC 6.1 103/ul Normal 4.0-11.0 [facility] Comment on above: Performed By: #### C BC ####[facility] Rlheaybury[address] [place], [place] [address]Dr. Selenaneil Tripathi CT STROKE HEAD WOon 11-17-19 CT STROKE HEAD WO Normal [facility] PROF CHEM 8 (BAS METB)on Anion gap [Moles/Vol] 9.8 mmol/L Normal [facility] Comment on above: Performed By: #### B GERTRUDE HSTROPN ####[facility] R[address]th[address] [place] [address]Dr. Airam Tripathi Calcium [Mass/Vol] 8.4 mg/dL Critically low 8.5-10.1 [facility] Comment on above: Performed By: #### B MP, HSTROPN ####[facility] [address]qc[address] [place] [address]Dr. Airam Tripathi Chloride [Moles/Vol] 99 mmol/L Normal 98-107 [facility] Comment on above: Performed By: #### B GERTRUDE, HSTROPN ####[facility] [address]rmqzfay[address] [place] [address]Dr. Airam Tripathi CO2 [Moles/Vol] 28.3 mmol/L Normal 21.0-32.0 [facility] Comment on above: Performed By: #### B GERTRUDE, HSTROPN ####[facility] [address]rbevlyuo5[address] [place] [address]Dr. Airam Tripathi Creatinine [Mass/Vol] 1.40 mg/dL Critically high 0.55-1.02 [facility] Comment on above: Performed By: #### B GERTRUDE, HSTROPN ####[facility] Jfwhwavisw[address] [place], [place] [address]Dr. Airam Deuce EGFR-AF ROMANIAN 46 mL/min/1.73m2 Critically low >=60 [facility] Comment on above: Performed By: #### B GERTRUDE, HSTROPN ####[facility] Xiscllguyc[address] [place], [place] [address]Dr. Airam Tripathi EGFR-NON AF ROMANIAN 38 mL/min/1.73m2 Critically low >=60 [facility] Comment on above: Performed By: #### B GERTRUDE, HSTROPN ####[facility] Dbkpmubory7[address] [place], [place] [address]Dr. Airam Tripathi Glucose [Mass/Vol] 88 mg/dL Normal 74-106 [facility] Comment on above: Performed By: #### B GERTRUDE, HSTROPN ####[facility] Ivxtxckykr535[address] [place], [place] [address]Dr. Airam Tripathi Potassium [Moles/Vol] 5.1 mmol/L Normal 3.5-5.1 [facility] Comment on above: Performed By: #### B GERTRUDE, HSTROPN ####[facility] Tjaukbrgjj[address] [place], [place] [address]Dr. Yilan Tripathi Sodium [Moles/Vol] 132 mmol/L Critically low 136-145 [facility] Comment on above: Performed By: #### B GERTRUDE HSTROPN ####[facility] [address]xkrmsh[address] [place] [address]Dr. Selenaneil Tripathi Urea nitrogen [Mass/Vol] 56.0 mg/dL Critically high 7.0-18.0 [facility] Comment on above: Performed By: #### B GERTRUDE HSTROPN ####[facility] J[address]dlyoa[address] [place] [address]Dr. Airam Tripathi Urea nitrogen/Creatinine [Mass ratio] 40.0 mg/mg Normal [facility] Comment on above: Performed By: #### B GERTRUDE HSTROPN ####[facility] Jjuweheszz[address] [place] [address]Dr. Airam Tripathi TROPONIN, HIGH SENSITIVITYon 11-16-2022 HSTROP 9.9 pg/mL Normal 4.0-51.3 [facility] Comment on above: Result Comment: CUT- OFF POINTS HAVE BEEN ESTABLISHED BASED ON THE FOURTH UNIVERSAL DEFINITIONS OF MYOCARDIALINFARCTION. THE UPPER REFERENCE LIMIT (URL) OF TROPONIN, DEFINED THE 99TH PERCENTILE OFcTnI DISTRIBUTION IN A REFERENCE POPULATION, HAS BEEN CONFIRMED THE DECISION THRESHOLDFOR DE DIAGNOSIS. Performed By: #### B GERTRUDE HSTROPN ####[facility] Jpwtuukodp[address] [place], [place] [address]Dr. Airam Tripathi XR CHEST 1 Von 11-16-2022 XR CHEST 1 V Normal [facility] CBC AUTO DIFFon 11-11-2022 BASO # 0.0 103/ul Normal 0.0-0.1 [facility] Comment on above: Performed By: #### C BC ####[facility] Gdwfyrnicl057[address] [place], [place] [address]Dr. Airam Tripathi Basophils/100 WBC (Bld) 0.4 % Normal 0.2-2.0 [facility] Comment on above: Performed By: #### C BC ####[facility] Wdwtuhnzmg70340[address] [place], [place] [address]Dr. Airam Tripathi EO # 0.4 103/ul Normal 0.0-0.7 [facility] Comment on above: Performed By: #### C BC ####[facility] Xolyvoxjef[address] [place] [address]Dr. Airam Tripathi Eosinophils/100 WBC (Bld) 4.6 % Normal 0.9-7.0 [facility] Comment on above: Performed By: #### C BC ####[facility] Agvbwmyrkj123[address] [place], [place] [address]Dr. Airam Tripathi Erythrocyte distribution width (RBC) [Ratio] 15.8 % Critically high 11.0-15.0 [facility] Comment on above: Performed By: #### C BC ####[facility] Dxwdknfqak64[address] [place], [place] [address]Dr. Airam Tripathi Hematocrit (Bld) [Volume fraction] 30.3 % Critically low 36.0-48.0 [facility] Comment on above: Performed By: #### C BC ####[facility] Bgwlxiyzzf8[address] [place], [place] [address]Dr. Airam Tripathi Hemoglobin (Bld) [Mass/Vol] 9.3 g/dL Critically low 12.0-16.0 [facility] Comment on above: Performed By: #### C BC ####[facility] Owrjrnhant956[address] [place], [place] [address]Dr. Airam Tripathi IG # 0.03 10e3/ul Normal 0.00-0.03 [facility] Comment on above: Performed By: #### C BC ####[facility] Tflrymocnc[address] [place], [place] [address]Dr. Airam Tripathi IG % 0.4 % Normal 0.0-0.5 [facility] Comment on above: Performed By: #### C BC ####[facility] Zlfnezojpd56[address] [place], [place] [address]Dr. Airam Tripathi LYMPH # 2.0 103/ul Normal 1.2-3.8 [facility] Comment on above: Performed By: #### C BC ####[facility] Zzemrsnomx427[address] [place], [place] [address]Dr. Airam Tripathi Lymphocytes/100 WBC (Bld) 24.5 % Normal 20.5-60.0 [facility] Comment on above: Performed By: #### C BC ####[facility] Tkddpkcgqs74[address] [place] [address]DrKianna Tripathi MANUAL DIFF REQ NO Normal [facility] Comment on above: Performed By: #### C BC ####[facility] Lwtcjhxwhv13[address] [place] [address]DrKianna Tripathi MCH (RBC) [Entitic mass] 28.9 pg Normal 26.7-34.0 [facility] Comment on above: Performed By: #### C BC ####[facility] Jgbobzaxvi89350[address] [place], [place] [address]DrKianna Tripathi MCHC (RBC) [Mass/Vol] 30.7 g/dL Normal 29.9-35.2 [facility] Comment on above: Performed By: #### C BC ####[facility] Pvxgxjfivk7[address] [place], [place] [address]DrKianna Tripathi MCV (RBC) [Entitic vol] 94.1 fL Normal 81.0-99.0 [facility] Comment on above: Performed By: #### C BC ####[facility] Sjiimjsvms[address] [place], [place] [address]DrKianna Tripathi MONO # 0.7 103/ul Normal 0.3-0.8 [facility] Comment on above: Performed By: #### C BC ####[facility] Oujroibtnh[address] [place], [place] [address]DrKianna Tripathi Monocytes/100 WBC (Bld) 8.3 % Normal 1.7-12.0 [facility] Comment on above: Performed By: #### C BC ####[facility] Wkcjasfvrg9[address] [place], [place] [address]DrKianna Tripathi NEUT # 5.0 103/ul Normal 1.4-6.5 [facility] Comment on above: Performed By: #### C BC ####[facility] Slpixvmdty194[address] [place], [place] [address]DrKianna Tripathi Neutrophils/100 WBC (Bld) 61.8 % Normal 43.0-75.0 [facility] Comment on above: Performed By: #### C BC ####[facility] Feirfwwkrq75[address] [place] [address]DrKianna Tripathi Platelet mean volume (Bld) [Entitic vol] 9.4 fL Critically low 9.5-13.5 [facility] Comment on above: Performed By: #### C BC ####[facility] Anwoxdrlby6[address] [place] [address]Dr. Airam Tripathi PLT 270 103/ul Normal 150-450 [facility] Comment on above: Performed By: #### C BC ####[facility] Ocnujfoard998[address] [place], [place] [address]Dr. Airam Tripathi RBC 3.22 106/ul Critically low 4.20-5.40 [facility] Comment on above: Performed By: #### C BC ####[facility] Ckfdcisbnv29040[address] [place], [place] [address]DrKianna Tripathi WBC 8.1 103/ul Normal 4.0-11.0 [facility] Comment on above: Performed By: #### C BC ####[facility] Iotgabjloi[address] [place], [place] [address]DrKianna Tripathi PROF 14(COMP METB)on 023 Albumin [Mass/Vol] 3.2 g/dL Critically low 3.4-5.0 [facility] Comment on above: Performed By: #### C MP ####[facility] Wdwesuklsk324[address] [place], [place] [address]DrKianna Tripathi Albumin/Globulin [Mass ratio] 1.0 {ratio} Normal [facility] Comment on above: Performed By: #### C MP ####[facility] Yghgrckwtz[address] [place], [place] [address]DrKianna Tripathi ALP [Catalytic activity/Vol] 108 U/L Normal 46-116 [facility] Comment on above: Performed By: #### C MP ####[facility] Vctzguorbz[address] [place], [place] [address]DrKianna Tripathi ALT [Catalytic activity/Vol] 30 U/L Normal 14-59 [facility] Comment on above: Performed By: #### C MP ####[facility] S[address]ncfrhba[address] [place] [address]Dr. Airam Tripathi Anion gap [Moles/Vol] 12.8 mmol/L Normal [facility] Comment on above: Performed By: #### C MP ####[facility] Vs[address]tdtyuyv[address] [place] [id number]. Airam Tripathi AST [Catalytic activity/Vol] 33 U/L Normal 15-37 [facility] Comment on above: Performed By: #### C MP ####[facility] B[address]jherrkh[address] [place] [address]Dr. Airam Deuce Bilirubin [Mass/Vol] 0.2 mg/dL Normal 0.2-1.0 [facility] Comment on above: Performed By: #### C MP ####[facility] Dzuspbnjrl[address] [place], [place] [address]Dr. Airam Deuce Calcium [Mass/Vol] 8.3 mg/dL Critically low 8.5-10.1 [facility] Comment on above: Performed By: #### C MP ####[facility] Cysjmtgixc[address] [place], [place] [address]Dr. Airam Deuce Chloride [Moles/Vol] 99 mmol/L Normal 98-107 [facility] Comment on above: Performed By: #### C MP ####[facility] Edhufgrima23[address] [place], [place] [address]Dr. Airam Deuce CO2 [Moles/Vol] 27.6 mmol/L Normal 21.0-32.0 [facility] Comment on above: Performed By: #### C MP ####[facility] Zxqwevivyl[address] [place], [place] [address]Dr. Airam Deuce Creatinine [Mass/Vol] 2.01 mg/dL Critically high 0.55-1.02 [facility] Comment on above: Performed By: #### C MP ####[facility] Iffdactbss[address] [place], [place] [address]Dr. Airam Deuce EGFR-AF ROMANIAN 31 mL/min/1.73m2 Critically low >=60 [facility] Comment on above: Performed By: #### C MP ####[facility] Et[address]ndwisqg[address] [place] [address]Dr. Airam Tripathi EGFR-NON AF ROMANIAN 25 mL/min/1.73m2 Critically low >=60 [facility] Comment on above: Performed By: #### C MP ####[facility] Pqldruronn39[address] [place] [address]Dr. Airam Deuce Globulin (S) [Mass/Vol] 3.2 g/dL Normal [facility] Comment on above: Performed By: #### C MP ####[facility] Dqkuwgttwe[address] [place] [address]Dr. Selenaneil Deuce Glucose [Mass/Vol] 158 mg/dL Critically high 74-106 [facility] Comment on above: Performed By: #### C MP ####[facility] Orughecktr[address] [place] [address]Dr. Selenaneil Deuce Potassium [Moles/Vol] 5.4 mmol/L Critically high 3.5-5.1 [facility] Comment on above: Performed By: #### C MP ####[facility] Eipbzhjgni8[address] [place], [place] [address]Dr. Airam Deuce Protein [Mass/Vol] 6.4 g/dL Normal 6.4-8.2 [facility] Comment on above: Performed By: #### C MP ####[facility] Fftoonwsvn4[address] [place] [address]Dr. Selenaneil Deuce Sodium [Moles/Vol] 134 mmol/L Critically low 136-145 [facility] Comment on above: Performed By: #### C MP ####[facility] Umnyvzrzkl[address] [place], [place] [address]Dr. Selenaneil Deuce Urea nitrogen [Mass/Vol] 52.0 mg/dL Critically high 7.0-18.0 [facility] Comment on above: Performed By: #### C MP ####[facility] Axivrnnagq[address] [place], [place] [address]Dr. Airam Tripathi Urea nitrogen/Creatinine [Mass ratio] 25.9 mg/mg Normal [facility] Comment on above: Performed By: #### C ####[facility] Kovyaifxes[address] [place], [place] [address]DpKianna Tripathi on 11-07-2022 [facility] Cardiology - [facility] [place] [facility] Subjective Mabel Moser is a 62 y.o. year old female patient being seen for 2 week follow up per Sofie Bernard CNP. She says since she was last seen on 10/28, Dr. Santana increased her Entresto to 97-103mg bid, metoprolol to 50mg TID, and hydralazine to 100mg TID. Says she was in [facility] ED again last Monday with a [...] In the past she was admitted to [facility] in 2019 with fluid overload and [...] distension. Pal (more content not included)... Normal [facility] Office Visiton 11-07-2022 Follow-up visit [id number] Loren Moser 1960 F Date Provider Department Center 11/07/2022 Kasi-BENJIE HIDALGO [facility] No family history on file Level of Service:34001 [place] OFFICE/OUTPATIENT ESTABLISHED MOD MDM 30-39 MIN Normal [facility] OSMOLALITYon 11-06-2022 Osmolality [Osmolality] 261 mosm/kg Critically low 275-295 [facility] Comment on above: Performed By: #### O SMO ####[facility] Z[address]uok[address] [place] [address]Dr. Airam Tripathi XR HIPS GUMARO 3_4V WO PELVISon 11-04-2022 XR HIPS GUMARO 3_4V WO PELVIS Normal [facility] XR KNEE LT 4V or >on 023 XR KNEE LT 4V or > Normal [facility] BNPon 11-03-2022 Natriuretic peptide B (Bld) [Mass/Vol] 1168.0 pg/mL Critically high <=900.0 [facility] Comment on above: Performed By: #### B COMMERCIAL LOAN OFFICER, BMP ####[facility] V[address]qvjmdtfq35[address] [place] [address]Dr. Airam Tripathi CBC AUTO DIFFon 11-03-2022 BASO # 0.0 103/ul Normal 0.0-0.1 [facility] Comment on above: Performed By: #### C BC ####[facility] Nyfetbqgvy[address] [place] [address]Dr. Airam Tripathi Basophils/100 WBC (Bld) 0.3 % Normal 0.2-2.0 [facility] Comment on above: Performed By: #### C BC ####[facility] Iimebgquvk60[address] [place] [address]Dr. Airam Tripathi EO # 0.2 103/ul Normal 0.0-0.7 [facility] Comment on above: Performed By: #### C BC ####[facility] Hanpekbtki[address] [place] [address]Dr. Airam Tripathi Eosinophils/100 WBC (Bld) 1.9 % Normal 0.9-7.0 [facility] Comment on above: Performed By: #### C BC ####[facility] Nofiaxpjwo2636 [place] [address]Dr. Airam Tripathi Erythrocyte distribution width (RBC) [Ratio] 15.2 % Critically high 11.0-15.0 [facility] Comment on above: Performed By: #### C BC ####[facility] Ssawkccogi[address] [place], [place] [address]Dr. Airam Tripathi Hematocrit (Bld) [Volume fraction] 34.3 % Critically low 36.0-48.0 [facility] Comment on above: Performed By: #### C BC ####[facility] Wsclaibyyh144[address] [place], [place] [address]Dr. Airam Tripathi Hemoglobin (Bld) [Mass/Vol] 11.0 g/dL Critically low 12.0-16.0 [facility] Comment on above: Performed By: #### C BC ####[facility] Fkaoljhcgk023[address] [place], [place] [address]Dr. Airam Tripathi IG # 0.06 10e3/ul Critically high 0.00-0.03 [facility] Comment on above: Performed By: #### C BC ####[facility] Qgjaibwqrv[address] [place], [place] [address]Dr. Selenaneil Tripathi IG % 0.5 % Normal 0.0-0.5 [facility] Comment on above: Performed By: #### C BC ####[facility] Cqylximdee45[address] [place], [place] [address]Dr. Airam Tripathi LYMPH # 2.3 103/ul Normal 1.2-3.8 [facility] Comment on above: Performed By: #### C BC ####[facility] Rfjxinshsd30[address] [place] [address]Dr. Airam Deuce Lymphocytes/100 WBC (Bld) 20.4 % Critically low 20.5-60.0 [facility] Comment on above: Performed By: #### C BC ####[facility] Asutbkmzor[address] [place] [address]Dr. Selenaneil Tripathi MANUAL DIFF REQ NO Normal [facility] Comment on above: Performed By: #### C BC ####[facility] Obfmonmjbe2893 [place] [address]Dr. Airam Deuce MCH (RBC) [Entitic mass] 28.7 pg Normal 26.7-34.0 [facility] Comment on above: Performed By: #### C BC ####[facility] Ntjxbkrfjp0817[address] [place], [place] [address]Dr. Airam Deuce MCHC (RBC) [Mass/Vol] 32.1 g/dL Normal 29.9-35.2 [facility] Comment on above: Performed By: #### C BC ####[facility] Ahvhgacgvz875[address] [place], [place] [address]Dr. Selenaneil Tripathi MCV (RBC) [Entitic vol] 89.6 fL Normal 81.0-99.0 [facility] Comment on above: Performed By: #### C BC ####[facility] Hjuofmkoch376[address] [place], [place] [address]Dr. Airam Tripathi MONO # 0.9 103/ul Critically high 0.3-0.8 [facility] Comment on above: Performed By: #### C BC ####[facility] Maritnqxzu3825[address] [place], [place] [address]Dr. Selenaneil Tripathi Monocytes/100 WBC (Bld) 8.3 % Normal 1.7-12.0 [facility] Comment on above: Performed By: #### C BC ####[facility] Ylljvpuivs[address] [place], [place] [address]Dr. Airam Tripathi NEUT # 7.8 103/ul Critically high 1.4-6.5 [facility] Comment on above: Performed By: #### C BC ####[facility] Clgvtvkzrh434[address] [place], [place] [address]Dr. Airam Tripathi Neutrophils/100 WBC (Bld) 68.6 % Normal 43.0-75.0 [facility] Comment on above: Performed By: #### C BC ####[facility] Xzhilzxixk888[address] [place], [place] [address]Dr. Airam Tripathi Platelet mean volume (Bld) [Entitic vol] 8.9 fL Critically low 9.5-13.5 [facility] Comment on above: Performed By: #### C BC ####[facility] Gbwndsiooh[address] [place], [place] [address]Dr. Airam Decue PLT 323 103/ul Normal 150-450 [facility] Comment on above: Performed By: #### C BC ####[facility] Dapsjsuqqc650[address] [place], [place] [address]Dr. Airam Deuce RBC 3.83 106/ul Critically low 4.20-5.40 [facility] Comment on above: Performed By: #### C BC ####[facility] Istkobyqqb218[address] [place], [place] [address]Dr. Airam Deuce WBC 11.4 103/ul Critically high 4.0-11.0 [facility] Comment on above: Performed By: #### C BC ####[facility] Aimkxbaniz239[address] [place], [place] [address]Dr. Airam Deuce BASO # 0.0 103/ul Normal 0.0-0.1 [facility] Comment on above: Performed By: #### C BC ####[facility] Gwwsuageiv189[address] [place], [place] [address]Dr. Airam Deuce Basophils/100 WBC (Bld) 0.2 % Normal 0.2-2.0 [facility] Comment on above: Performed By: #### C BC ####[facility] Zourcsjwkx6413[address] [place], [place] [address]Dr. Airam Tripathi EO # 0.1 103/ul Normal 0.0-0.7 [facility] Comment on above: Performed By: #### C BC ####[facility] Ucgaldsztj1812[address] [place], [place] [address]Dr. Airam Tripathi Eosinophils/100 WBC (Bld) 0.7 % Critically low 0.9-7.0 [facility] Comment on above: Performed By: #### C BC ####[facility] Brtieseoos[address] [place] [address]Dr. Airam Tripathi Erythrocyte distribution width (RBC) [Ratio] 15.4 % Critically high 11.0-15.0 [facility] Comment on above: Performed By: #### C BC ####[facility] Ewqysawynb[address] [place], [place] [address]Dr. Airam Tripathi Hematocrit (Bld) [Volume fraction] 33.6 % Critically low 36.0-48.0 [facility] Comment on above: Performed By: #### C BC ####[facility] Stvqsmdzlt134[address] [place], [place] [address]Dr. Airam Tripathi Hemoglobin (Bld) [Mass/Vol] 10.9 g/dL Critically low 12.0-16.0 [facility] Comment on above: Performed By: #### C BC ####[facility] Ehlyjkprob040[address] [place], [place] [address]Dr. Airam Tripathi IG # 0.04 10e3/ul Critically high 0.00-0.03 [facility] Comment on above: Performed By: #### C BC ####[facility] Jaozhbenfc338[address] [place], [place] [address]Dr. Airam Tripathi IG % 0.5 % Normal 0.0-0.5 [facility] Comment on above: Performed By: #### C BC ####[facility] Okesebfhii[address] [place], [place] [address]Dr. Airam Tripathi LYMPH # 1.1 103/ul Critically low 1.2-3.8 [facility] Comment on above: Performed By: #### C BC ####[facility] Styzuoioph854[address] [place], [place] [address]Dr. Airam Tripathi Lymphocytes/100 WBC (Bld) 13.3 % Critically low 20.5-60.0 [facility] Comment on above: Performed By: #### C BC ####[facility] Hdypzmlaik[address] [place] [address]Dr. Airam Tripathi MANUAL DIFF REQ NO Normal [facility] Comment on above: Performed By: #### C BC ####[facility] Sjclrmadfl48[address] [place] [address]Dr. Airam Tripathi MCH (RBC) [Entitic mass] 29.1 pg Normal 26.7-34.0 [facility] Comment on above: Performed By: #### C BC ####[facility] Fmhflrirdw17[address] [place] [address]Dr. Airam Deuce MCHC (RBC) [Mass/Vol] 32.4 g/dL Normal 29.9-35.2 [facility] Comment on above: Performed By: #### C BC ####[facility] Afevfpndtj6434 [place] [address]Dr. Airam Deuce MCV (RBC) [Entitic vol] 89.6 fL Normal 81.0-99.0 [facility] Comment on above: Performed By: #### C BC ####[facility] Ymveyyrsrt64[address] [place], [place] [address]Dr. Airam Deuce MONO # 0.5 103/ul Normal 0.3-0.8 [facility] Comment on above: Performed By: #### C BC ####[facility] Kicxdloias30[address] [place] [address]Dr. Selenaneil Tripathi Monocytes/100 WBC (Bld) 6.4 % Normal 1.7-12.0 [facility] Comment on above: Performed By: #### C BC ####[facility] Hhybpxujdz70[address] [place] [address]Dr. Airam Deuce NEUT # 6.5 103/ul Normal 1.4-6.5 [facility] Comment on above: Performed By: #### C BC ####[facility] Xsrtoblxbu196[address] [place], [place] [address]Dr. Selenaneil Tripathi Neutrophils/100 WBC (Bld) 78.9 % Critically high 43.0-75.0 [facility] Comment on above: Performed By: #### C BC ####[facility] Yebretzhba14[address] [place] [address]Dr. Airam Tripathi Platelet mean volume (Bld) [Entitic vol] 9.4 fL Critically low 9.5-13.5 [facility] Comment on above: Performed By: #### C BC ####[facility] Ojhinngtrg[address] [place] [address]Dr. Airam Tripathi PLT 314 103/ul Normal 150-450 [facility] Comment on above: Performed By: #### C BC ####[facility] Epwzqwsjaa6196 [place] [address]Dr. Airam Tripathi RBC 3.75 106/ul Critically low 4.20-5.40 [facility] Comment on above: Performed By: #### C BC ####[facility] Donqoeyrcx[address] [place], [place] [address]Dr. Airam Tripathi WBC 8.3 103/ul Normal 4.0-11.0 [facility] Comment on above: Performed By: #### C BC ####[facility] Sjmgqhjrnu[address] [place], [place] [address]Dr. Airam Tripathi CT HEAD WO CONon 11-03-2022 CT HEAD WO CON Normal [facility] PROF 14(COMP METB)on 023 Albumin [Mass/Vol] 3.2 g/dL Critically low 3.4-5.0 [facility] Comment on above: Performed By: #### C MP ####[facility] Dklkiuguet[address] [place], [place] [address]Dr. Airam Tripathi Albumin/Globulin [Mass ratio] 0.9 {ratio} Normal [facility] Comment on above: Performed By: #### C MP ####[facility] Xesoiyjvtt95[address] [place] [address]Dr. Airam Deuce ALP [Catalytic activity/Vol] 109 U/L Normal 46-116 [facility] Comment on above: Performed By: #### C MP ####[facility] Thjokmqsep7[address] [place] [address]Dr. Selenaneil Deuce ALT [Catalytic activity/Vol] 25 U/L Normal 14-59 [facility] Comment on above: Performed By: #### C MP ####[facility] [address]cezvslut[address] [place] [id number]. Airam Tripathi Anion gap [Moles/Vol] 10.9 mmol/L Normal [facility] Comment on above: Performed By: #### C MP ####[facility] Ruvzecvnha17[address] [place] [id number]. Airam Tripathi AST [Catalytic activity/Vol] 24 U/L Normal 15-37 [facility] Comment on above: Performed By: #### C MP ####[facility] [address]fr[address] [place] [address]Dr. Airam Tripathi Bilirubin [Mass/Vol] 0.3 mg/dL Normal 0.2-1.0 [facility] Comment on above: Performed By: #### C MP ####[facility] [address] [place], [place] [address]Dr. Airam Tripathi Calcium [Mass/Vol] 8.6 mg/dL Normal 8.5-10.1 [facility] Comment on above: Performed By: #### C MP ####[facility] [address] [place], [place] [address]Dr. Airam Tripathi Chloride [Moles/Vol] 95 mmol/L Critically low 98-107 [facility] Comment on above: Performed By: #### C MP ####[facility] [address] [place], [place] [address]Dr. Airam Tripathi CO2 [Moles/Vol] 27.8 mmol/L Normal 21.0-32.0 [facility] Comment on above: Performed By: #### C MP ####[facility] [address] [place], [place] [address]Dr. Airam Tripathi Creatinine [Mass/Vol] 1.07 mg/dL Critically high 0.55-1.02 [facility] Comment on above: Performed By: #### C MP ####[facility] [address] [place] [address]Dr. Selenaneil Deuce EGFR-AF ROMANIAN >60 Normal >=60 [facility] Comment on above: Performed By: #### C MP ####[facility] [address] [place] [id number]. Airam Tripathi EGFR-NON AF ROMANIAN 52 mL/min/1.73m2 Critically low >=60 [facility] Comment on above: Performed By: #### C MP ####[facility] [address] [place] [id number]. Airam Tripathi Globulin (S) [Mass/Vol] 3.5 g/dL Normal [facility] Comment on above: Performed By: #### C MP ####[facility] [address] [place] [id number]. Airam Tripathi Glucose [Mass/Vol] 86 mg/dL Normal 74-106 [facility] Comment on above: Performed By: #### C MP ####[facility] [address]cm[address] [place] [id number]. Airam Tripathi Potassium [Moles/Vol] 4.7 mmol/L Normal 3.5-5.1 [facility] Comment on above: Performed By: #### C MP ####[facility] [address] [place] [phone]. Airam Tripathi Protein [Mass/Vol] 6.7 g/dL Normal 6.4-8.2 [facility] Comment on above: Performed By: #### C MP ####[facility] [address] [place] [phone]. Airam Tripathi Sodium [Moles/Vol] 129 mmol/L Critically low 136-145 [facility] Comment on above: Performed By: #### C MP ####[facility] [address]axyi[address] [place] [phone]. Airam Tripathi Urea nitrogen [Mass/Vol] 19.0 mg/dL Critically high 7.0-18.0 [facility] Comment on above: Performed By: #### C MP ####[facility] [address] [place] [phone]. Airam Tripathi Urea nitrogen/Creatinine [Mass ratio] 17.8 mg/mg Normal [facility] Comment on above: Performed By: #### C MP ####[facility] [address]wk[address] [place] [address]Dr. Airam Tripathi PROF CHEM 8 (BAS METB)on Anion gap [Moles/Vol] 9.0 mmol/L Normal [facility] Comment on above: Performed By: #### B COMMERCIAL LOAN OFFICER, BMP ####[facility] [address] [place] [address]Dr. Airam Tripathi Calcium [Mass/Vol] 8.5 mg/dL Normal 8.5-10.1 [facility] Comment on above: Performed By: #### B COMMERCIAL LOAN OFFICER, BMP ####[facility] [address] [place], [place] [address]Dr. Airam Tripathi Chloride [Moles/Vol] 93 mmol/L Critically low 98-107 [facility] Comment on above: Performed By: #### B COMMERCIAL LOAN OFFICER, BMP ####[facility] [address] [place], [place] [address]Dr. Airam Tripathi CO2 [Moles/Vol] 28.1 mmol/L Normal 21.0-32.0 [facility] Comment on above: Performed By: #### B COMMERCIAL LOAN OFFICER, BMP ####[facility] Drzfb[address] [place], [place] [address]Dr. Airam Tripathi Creatinine [Mass/Vol] 1.17 mg/dL Critically high 0.55-1.02 [facility] Comment on above: Performed By: #### B COMMERCIAL LOAN OFFICER, BMP ####[facility] Tr[address] [place], [place] [address]Dr. Airam Tripathi EGFR-AF ROMANIAN 57 mL/min/1.73m2 Critically low >=60 [facility] Comment on above: Performed By: #### B COMMERCIAL LOAN OFFICER, BMP ####[facility] [address] [place], [place] [address]Dr. Airam Tripathi EGFR-NON AF ROMANIAN 47 mL/min/1.73m2 Critically low >=60 [facility] Comment on above: Performed By: #### B COMMERCIAL LOAN OFFICER, BMP ####[facility] [address] [place], [place] [address]Dr. Airam Tripathi Glucose [Mass/Vol] 107 mg/dL Critically high 74-106 [facility] Comment on above: Performed By: #### B COMMERCIAL LOAN OFFICER, BMP ####[facility] [address] [place] [address]Dr. Airam Tripathi Potassium [Moles/Vol] 4.1 mmol/L Normal 3.5-5.1 [facility] Comment on above: Performed By: #### B COMMERCIAL LOAN OFFICER, BMP ####[facility] [address] [place] [address]Dr. Airam Tripathi Sodium [Moles/Vol] 126 mmol/L Critically low 136-145 [facility] Comment on above: Performed By: #### B COMMERCIAL LOAN OFFICER, BMP ####[facility] [address] [place] [address]Dr. Airam Tripathi Urea nitrogen [Mass/Vol] 20.0 mg/dL Critically high 7.0-18.0 [facility] Comment on above: Performed By: #### B COMMERCIAL LOAN OFFICER, BMP ####[facility] [address] [place] [address]Dr. Airam Tripathi Urea nitrogen/Creatinine [Mass ratio] 17.1 mg/mg Normal [facility] Comment on above: Performed By: #### B COMMERCIAL LOAN OFFICER, BMP ####[facility] [address] [place], [place] [address]Dr. Airam Tripathi XR CHEST 1 Von 11-03-2022 XR CHEST 1 V Normal [facility] Activated partial thrombopla stin time (aPTT) in platelet poor plasma by coagulation aOrdered By: Favian Helm on 10-28-2022 aPTT Coag (PPP) [Time] 31.7 s 25.1-36.5 [facility] Alanine aminotransferase [En zymatic activity/volume] in Serum or PlasmaOrdered By: Favian Helm on 10-28-2022 ALT [Catalytic activity/Vol] 14 U/L 7-52 [facility] Albumin [Mass/volume] in Ser um or Plasma by Bromocresol green (BCG) dye binding methoOrdered By: Favian Helm on 10-28-2022 Albumin BCG dye [Mass/Vol] 3.6 g/dL 3.5-5.7 [facility] Alkaline phosphatase [Enzyma tic activity/volume] in Serum or PlasmaOrdered By: Favian Helm on 10-28-2022 ALP [Catalytic activity/Vol] 84 U/L 34-104 [facility] Aspartate aminotransferase [ Enzymatic activity/volume] in Serum or PlasmaOrdered By: Favian Helm on 10-28-2022 AST [Catalytic activity/Vol] 21 U/L 13-39 [facility] B-Type Natriuretic Peptideon 10-28-2022 Natriuretic peptide B (Bld) [Mass/Vol] 551.0 pg/mL High 5-100 [facility] Comment on above: Result Comment: PERF ORMED BY: [place] [address] PATHOLOGIST SCIENCE MANAGER TANNER GAVIN M.D. Performed By: #### V [id number], MG, BMP, JOSE, FE and TIBC, RETIC #### [facility] [address] Basophils Auto (Bld) [#/Vol] Ordered By: Favian Helm on 10-28-2022 Basophils (Bld) [#/Vol] 0.0 10*3/uL 0.0-0.2 [facility] Basophils/100 WBC Auto (Bld) Ordered By: Favian Helm on 10-28-2022 Basophils/100 WBC (Bld) 0.4 % . [facility] Bilirubin.total [Mass/volume ] in Serum or PlasmaOrdered By: Favian Helm on 10-28-2022 Bilirubin [Mass/Vol] 0.3 mg/dL 0.3-1.0 [facility] CT head/brain wo conon 10-28 CT head/brain wo con [facility] [address] [place] [address] [place] [address] CT Scan Report Signed Patient: Mabel Moser MR#: [id number] : 1960 Acct:[id number] Age/Sex: 62 / F ADM Date: 10/28/22 Loc: ER Room: Type: [facility] ER Attending Dr: Copies to: Favian [...] Baljinder Ball M.D.10/28/2022 7:46 PM Dictation Location: [place] [address] Transcribed By: [facility] 10/28/221945 Dictated By: Baljinder Ball DO 10/28/221934 Signed By: 10/28/221945 Normal [facility] Calcium [Mass/volume] in Ser um or PlasmaOrdered By: Favian Helm on 10-28-2022 Calcium [Mass/Vol] 8.2 mg/dL 8.6-10.3 [facility] Carbon dioxide, total [Moles /volume] in Serum or PlasmaOrdered By: Favian Helm on 10-28-2022 CO2 [Moles/Vol] 25.7 mmol/L 21.0-31.0 [facility] Chloride [Moles/volume] in S andrea or PlasmaOrdered By: Favian Helm on 10-28-2022 Chloride [Moles/Vol] 98 mmol/L 98-107 [facility] Complete Blood Count Auto Di ffon 10-28-2022 Basophils (Bld) [#/Vol] 0.0 10*3/uL Normal 0.0-0.2 [facility] Comment on above: Result Comment: PERF ORMED BY: [place] [address] PATHOLOGIST SCIENCE MANAGER TANNER GAVIN M.D. Performed By: #### V [id number], MG, BMP, JOSE, FE and TIBC, RETIC #### [address] Basophils/100 WBC (Bld) 0.4 % Normal . [facility] Comment on above: Performed By: #### V [id number], MG, BMP, JOSE, FE and TIBC, RETIC #### [address] Eosinophils (Bld) [#/Vol] 0.1 10*3/uL Normal 0.0-0.45 [facility] Comment on above: Performed By: #### V [id number], MG, BMP, JOSE, FE and TIBC, RETIC #### [address] Eosinophils/100 WBC (Bld) 1.0 % Normal . [facility] Comment on above: Performed By: #### V [id number], MG, BMP, JOSE, FE and TIBC, RETIC #### [address] Erythrocyte distribution width (RBC) [Ratio] 16.5 % High 11.9-15.3 [facility] Comment on above: Performed By: #### V [id number], MG, BMP, JOSE, FE and TIBC, RETIC #### [address] Hematocrit (Bld) [Volume fraction] 29.9 % Low 34.0-46.4 [facility] Comment on above: Performed By: #### V [id number], MG, BMP, JOSE, FE and TIBC, RETIC #### [address] Hemoglobin (Bld) [Mass/Vol] 9.6 g/dL Low 11.8-15.4 [facility] Comment on above: Performed By: #### V [id number], MG, BMP, JOSE, FE and TIBC, RETIC #### [address] Lymphocytes (Bld) [#/Vol] 0.8 10*3/uL Low 1.00-4.8 [facility] Comment on above: Performed By: #### V [id number], MG, BMP, JOSE, FE and TIBC, RETIC #### [address] Lymphocytes/100 WBC (Bld) 12.8 % Normal . [facility] Comment on above: Performed By: #### V [id number], MG, BMP, JOSE, FE and TIBC, RETIC #### [address] MCH (RBC) [Entitic mass] 28.3 pg Normal 24.7-34.3 [facility] Comment on above: Performed By: #### V [id number], MG, BMP, JOSE, FE and TIBC, RETIC #### [address] MCV (RBC) [Entitic vol] 88.3 fL Normal 80-100 [facility] Comment on above: Performed By: #### V [id number], MG, BMP, JOSE, FE and TIBC, RETIC #### [address] Mean Corpuscular HGB Conc 32.0 g/dL Normal 32.0-35.0 [facility] Comment on above: Performed By: #### V [id number], MG, BMP, JOSE, FE and TIBC, RETIC #### [address] Monocytes (Bld) [#/Vol] 0.2 10*3/uL Normal 0.0-0.8 [facility] Comment on above: Performed By: #### V [id number], MG, BMP, JOSE, FE and TIBC, RETIC #### [address] Monocytes/100 WBC (Bld) 17.29 % Normal 0.00-20.00 [facility] Comment on above: Performed By: #### V [id number], MG, BMP, JOSE, FE and TIBC, RETIC #### [address] Monocytes/100 WBC (Bld) 2.5 % Normal . [facility] Comment on above: Performed By: #### V [id number], MG, BMP, JOSE, FE and TIBC, RETIC #### [address] Neutrophils (Bld) [#/Vol] 5.5 10*3/uL Normal 1.8-7.7 [facility] Comment on above: Performed By: #### V [id number], MG, BMP, JOSE, FE and TIBC, RETIC #### [address] Neutrophils/100 WBC (Bld) 83.3 % Normal . [facility] Comment on above: Performed By: #### V [id number], MG, BMP, JOSE, FE and TIBC, RETIC #### [address] NRBC% 0.0 /100{WBC} Normal 0-0.5 [facility] Comment on above: Performed By: #### V [id number], MG, BMP, JOSE, FE and TIBC, RETIC #### [address] Platelet mean volume (Bld) [Entitic vol] 7.3 fL Normal 6.3-10.7 [facility] Comment on above: Performed By: #### V [id number], MG, BMP, JOSE, FE and TIBC, RETIC #### [address] Platelets (Bld) [#/Vol] 260 10*3/uL Normal 150-450 [facility] Comment on above: Performed By: #### V [id number], MG, BMP, JOSE, FE and TIBC, RETIC #### [facility] [address] [place] [address] RBC (Bld) [#/Vol] 3.38 10*6/uL Low 3.60-5.00 [facility] Comment on above: Performed By: #### V [id number], MG, BMP, JOSE, FE and TIBC, RETIC #### [address] WBC (Bld) [#/Vol] 6.6 10*3/uL Normal 3.8-11.6 [facility] Comment on above: Performed By: #### V [id number], MG, BMP, JOSE, FE and TIBC, RETIC #### [address] Comprehensive Metabolic Pane sameer 10-28-2022 Albumin [Mass/Vol] 3.6 g/dL Normal 3.5-5.7 [facility] Comment on above: Performed By: #### V [id number], MG, BMP, JOES, FE and TIBC, RETIC #### [address] Albumin/Globulin [Mass ratio] 1.6 {ratio} Normal [facility] Comment on above: Performed By: #### V [id number], MG, BMP, JOSE, FE and TIBC, RETIC #### [address] ALP [Catalytic activity/Vol] 84 U/L Normal 34-104 [facility] Comment on above: Performed By: #### V [id number], MG, BMP, JOSE, FE and TIBC, RETIC #### [address] ALT [Catalytic activity/Vol] 14 U/L Normal 7-52 [facility] Comment on above: Performed By: #### V [id number], MG, BMP, JOSE, FE and TIBC, RETIC #### [address] Anion gap [Moles/Vol] 10.0 mmol/L Normal 6.0-15.0 [facility] Comment on above: Performed By: #### V [id number], MG, BMP, JOSE, FE and TIBC, RETIC #### [address] AST [Catalytic activity/Vol] 21 U/L Normal 13-39 [facility] Comment on above: Performed By: #### V [id number], MG, BMP, JOSE, FE and TIBC, RETIC #### [address] Bilirubin [Mass/Vol] 0.3 mg/dL Normal 0.3-1.0 [facility] Comment on above: Performed By: #### V [id number], MG, BMP, JOSE, FE and TIBC, RETIC #### [address] Calcium [Mass/Vol] 8.2 mg/dL Low 8.6-10.3 [facility] Comment on above: Performed By: #### V [id number], MG, BMP, JOSE, FE and TIBC, RETIC #### [facility] [address] [place] [address] Chloride [Moles/Vol] 98 mmol/L Normal 98-107 [facility] Comment on above: Performed By: #### V [id number], MG, BMP, JOSE, FE and TIBC, RETIC #### [address] CO2 [Moles/Vol] 25.7 mmol/L Normal 21.0-31.0 [facility] Comment on above: Performed By: #### V [id number], MG, BMP, JOSE, FE and TIBC, RETIC #### [address] Creatinine [Mass/Vol] 1.23 mg/dL High 0.60-1.20 [facility] Comment on above: Performed By: #### V [id number], MG, BMP, JOSE, FE and TIBC, RETIC #### [facility] [address] Creatinine Clr Calc Pharmacy 48.79 [facility] Comment on above: Performed By: #### V [id number], MG, BMP, JOSE, FE and TIBC, RETIC #### [address] GFR/1.73 sq M.predicted MDRD (S/P/Bld) [Vol rate/Area] 50.309 mL/min/{1.73_m2} [facility] Comment on above: Performed By: #### V [id number], MG, BMP, JOSE, FE and TIBC, RETIC #### [facility] [address] Globulin (S) [Mass/Vol] 2.3 g/dL [facility] Comment on above: Performed By: #### V [id number], MG, BMP, JOSE, FE and TIBC, RETIC #### [address] Glucose [Mass/Vol] 98 mg/dL Normal 70-100 [facility] Comment on above: Result Comment: [place] Glucose Reference Range is dependent on time and content of last meal. Glucose of more than 200 mg/dL in a nonstressed, ambulatory subject supports the diagnosis of Diabetes Mellitus. ADA recommended reference range Performed By: #### V [id number], MG, BMP, JOSE, FE and TIBC, RETIC #### [address] Potassium [Moles/Vol] 4.7 mmol/L Normal 3.5-5.1 [facility] Comment on above: Performed By: #### V [id number], MG, BMP, JOSE, FE and TIBC, RETIC #### [facility] [address] Protein [Mass/Vol] 5.9 g/dL Low 6.4-8.9 [facility] Comment on above: Performed By: #### V [id number], MG, BMP, JOSE, FE and TIBC, RETIC #### [facility] [address] Sodium [Moles/Vol] 129 mmol/L Low 136-145 [facility] Comment on above: Performed By: #### V [id number], MG, BMP, JOSE, FE and TIBC, RETIC #### [facility] [address] [place] [address] [place] Urea nitrogen [Mass/Vol] 36 mg/dL High 7-25 [facility] Comment on above: Performed By: #### V [id number], MG, BMP, JOSE, FE and TIBC, RETIC #### [address] Creatine Kinaseon 10-28-2022 CK [Catalytic activity/Vol] 45 U/L Normal [facility] Comment on above: Performed By: #### V [id number], MG, BMP, JOSE, FE and TIBC, RETIC #### [address] Creatine kinase [Enzymatic a ctivity/volume] in Serum or PlasmaOrdered By: Favian Helm on 10-28-2022 CK [Catalytic activity/Vol] 45 U/L [facility] Creatinine [Mass/volume] in Serum or PlasmaOrdered By: Favian Helm on 10-28-2022 Creatinine [Mass/Vol] 1.23 mg/dL 0.60-1.20 [facility] ECG 12 lead ECGon 10-28-2022 ECG 12 lead ECG [facility] [address] Electrocardiograph Report Signed Patient: Mabel Moser MR#: [id number] : 1960 Acct:[id number] Age/Sex: 62 / F ADM Date: 10/28/22 Loc: ER Room: Type: [facility] ER Attending Dr: Ordering Provider: Favian Helm [...] normal variant Confirmed by Chris MAURO DO ([id number]) on 10/28/2022 8:40:44 PM Referred By: Electronically Signed By:Chris MAURO DO Transcribed By: MUS Signed By Chris Mauro DO 0 10/28/222039 Normal [facility] Eosinophils Auto (Bld) [#/Vo l]Ordered By: Favian Helm on 10-28-2022 Eosinophils (Bld) [#/Vol] 0.1 10*3/uL 0.0-0.45 [facility] Eosinophils/100 WBC Auto (Bl d)Ordered By: Favian Helm on 10-28-2022 Eosinophils/100 WBC (Bld) 1.0 % . [facility] Erythrocyte distribution wid th Auto (RBC) [Ratio]Ordered By: Fvaian Helm on 10-28-2022 Erythrocyte distribution width (RBC) [Ratio] 16.5 % 11.9-15.3 [facility] Globulin Calc (S) [Mass/Vol] Ordered By: Favian Helm on 10-28-2022 Globulin (S) [Mass/Vol] 2.3 g/dL [facility] Glucose [Mass/volume] in Ser um or PlasmaOrdered By: Favian Helm on 10-28-2022 Glucose [Mass/Vol] 98 mg/dL 70-100 [facility] Comment on above: ADA recommended refe rence rangeRandom Glucose Reference Range is dependent on time and content of last meal. Glucose of more than 200 mg/dL in a nonstressed, ambulatory subject supports the diagnosis of Diabetes Mellitus. Hematocrit Auto (Bld) [Volum e fraction]Ordered By: Favian Helm on 10-28-2022 Hematocrit (Bld) [Volume fraction] 29.9 % 34.0-46.4 [facility] Hemoglobin [Mass/volume] in BloodOrdered By: Favian Helm on 10-28-2022 Hemoglobin (Bld) [Mass/Vol] 9.6 g/dL 11.8-15.4 [facility] Laboratory - CoagulationOrde red By: Favian Helm on 10-28-2022 PT Coag (PPP) [Time] 11.0 s 9.0-12.9 [facility] Leukocytes [#/volume] correc nicol for nucleated erythrocytes in Blood by Automated counOrdered By: Favian Helm on 10-28-2022 WBC corrected for nucl RBC Auto (Bld) [#/Vol] 6.6 10*3/uL 3.8-11.6 [facility] Lymphocytes Auto (Bld) [#/Vo l]Ordered By: Favian Helm on 10-28-2022 Lymphocytes (Bld) [#/Vol] 0.8 10*3/uL 1.00-4.8 [facility] Lymphocytes/100 WBC Auto (Bl d)Ordered By: Favian Helm on 10-28-2022 Lymphocytes/100 WBC (Bld) 12.8 % . [facility] MCH Auto (RBC) [Entitic mass ]Ordered By: Favian Helm on 10-28-2022 MCH (RBC) [Entitic mass] 28.3 pg 24.7-34.3 [facility] MCHC Auto (RBC) [Mass/Vol]Or dered By: Favian Helm on 10-28-2022 MCHC (RBC) [Mass/Vol] 32.0 g/dL 32.0-35.0 [facility] MCV Auto (RBC) [Entitic vol] Ordered By: Favian Helm on 10-28-2022 MCV (RBC) [Entitic vol] 88.3 fL 80-100 [facility] Magnesiumon 10-28-2022 Magnesium [Mass/Vol] 1.9 mg/dL Normal 1.9-2.7 [facility] Comment on above: Result Comment: PERF ORMED BY: [facility] [address] [place] [address] PATHOLOGIST SCIENCE MANAGER TANNER GAVIN M.D. Performed By: #### V [id number], MG, BMP, JOSE, FE and TIBC, RETIC #### [facility] [address] [place] [address] [place] Magnesium [Mass/volume] in S andrea or PlasmaOrdered By: Favian Helm on 10-28-2022 Magnesium [Mass/Vol] 1.9 mg/dL 1.9-2.7 [facility] Monocyte distribution width [Entitic volume] in Blood by AutomatedOrdered By: Favian Helm on 10-28-2022 Monocyte distribution width Auto (Bld) [Entitic vol] 17.29 % 0.00-20.00 [facility] Monocytes Auto (Bld) [#/Vol] Ordered By: Favian Helm on 10-28-2022 Monocytes (Bld) [#/Vol] 0.2 10*3/uL 0.0-0.8 [facility] Monocytes/100 WBC Auto (Bld) Ordered By: Favian Helm on 10-28-2022 Monocytes/100 WBC (Bld) 2.5 % . [facility] Natriuretic peptide B [Mass/ Vol]Ordered By: Favian Helm on 10-28-2022 Natriuretic peptide B (Bld) [Mass/Vol] 551.0 pg/mL 5-100 [facility] Neutrophils Auto (Bld) [#/Vo l]Ordered By: Favian Helm on 10-28-2022 Neutrophils (Bld) [#/Vol] 5.5 10*3/uL 1.8-7.7 [facility] Neutrophils/100 WBC Auto (Bl d)Ordered By: Favian Helm on 10-28-2022 Neutrophils/100 WBC (Bld) 83.3 % . [facility] No Panel InformationOrdered By: Favian Helm on 10-28-2022 Estimated GFR (CKD-EPI) 50.309 mL/Min [facility] Creatinine Clearance (Chem 48.79 [facility] Nucleated erythrocytes [Pres ence] in Blood by Automated countOrdered By: Favian Helm on 10-28-2022 Nucleated RBC Auto Ql (Bld) 0.0 /100{WBC} 0-0.5 [facility] Office Visiton 10-28-2022 Follow-up visit [id number] Loren Moser 1960 F Date Provider Department Center 10/28/2022 [facility] No family history on file Level of Service:22739 [place] OFFICE/OUTPATIENT ESTABLISHED MOD MDM 30-39 MIN Normal [facility] Partial Thromboplastin Timeo n 10-28-2022 aPTT Coag (Bld) [Time] 31.7 s Normal 25.1-36.5 [facility] Comment on above: Result Comment: PERF ORMED BY: [facility] [address] [place] [address] PATHOLOGIST SCIENCE MANAGER TANNER GAVIN M.D. Performed By: #### V [id number], MG, BMP, JOSE, FE and TIBC, RETIC #### [facility] [address] Platelet mean volume Auto (B ld) [Entitic vol]Ordered By: Favian Helm on 10-28-2022 Platelet mean volume (Bld) [Entitic vol] 7.3 fL 6.3-10.7 [facility] Platelet poor plasma interna tional normalized ratio (INR) by coagulation assay (relatOrdered By: Favian Helm on 10-28-2022 INR Coag (PPP) [Relative time] 1.0 {INR} [facility] Comment on above: INR Therapeutic Rang [...] 10-28-2022 Platelets (Bld) [#/Vol] 260 10*3/uL 150-450 [facility] Potassium [Moles/volume] in Serum or PlasmaOrdered By: Favian Helm on 10-28-2022 Potassium [Moles/Vol] 4.7 mmol/L 3.5-5.1 [facility] Protein [Mass/volume] in Ser um or PlasmaOrdered By: Favian Helm on 10-28-2022 Protein [Mass/Vol] 5.9 g/dL 6.4-8.9 [facility] Prothrombin Time INRon 10-28 INR Coag (PPP) [Relative time] 1.0 {INR} Normal [facility] Comment on above: Result Comment: INR [...] valves: 3 - 4.5 Performed By: #### V [id number], MG, BMP, JOSE, FE and TIBC, RETIC #### [facility] [address] PT Coag (PPP) [Time] 11.0 s Normal 9.0-12.9 [facility] Comment on above: Performed By: #### V [id number], MG, BMP, JOSE, FE and TIBC, RETIC #### [facility] [address] RBC Auto (Bld) [#/Vol]Ordere d By: Favian Helm on 10-28-2022 RBC (Bld) [#/Vol] 3.38 10*6/uL 3.60-5.00 [facility] Serum or plasma albumin/glob ulin mass ratioOrdered By: Favian Helm on 10-28-2022 Albumin/Globulin [Mass ratio] 1.6 {ratio} [facility] Serum or plasma anion gap de terminationOrdered By: Favian Helm on 10-28-2022 Anion gap [Moles/Vol] 10.0 mmol/L 6.0-15.0 [facility] Sodium [Moles/volume] in Ser um or PlasmaOrdered By: Favian Helm on 10-28-2022 Sodium [Moles/Vol] 129 mmol/L 136-145 [facility] Troponin I High Sensitivityo n 10-28-2022 Troponin I High Sensitivity 5.8 pg/mL Normal 0.0-15.0 [facility] Comment on above: Result Comment: PERF ORMED BY: [place] [address] PATHOLOGIST SCIENCE MANAGER TANNER GAVIN M.D. Performed By: #### V [id number], MG, BMP, JOSE, FE and TIBC, RETIC #### [address] Troponin I.cardiac [Mass/vol ume] in Serum or Plasma by Detection limit <= 0.01 ng/Ordered By: Favian Helm on 10-28-2022 Troponin I.cardiac DL <= 0.01 ng/mL [Mass/Vol] 5.8 pg/mL 0.0-15.0 [facility] Urea nitrogen [Mass/volume] in Serum or PlasmaOrdered By: Favian Helm on 10-28-2022 Urea nitrogen [Mass/Vol] 36 mg/dL 7-25 [facility] WBC Auto (Bld) [#/Vol]Ordere d By: Favian Helm on 10-28-2022 WBC (Bld) [#/Vol] 6.6 10*3/uL 3.8-11.6 [facility] XR chest 2V*on 10-28-2022 XR chest 2V* [facility] [place] [address] [place] [address] XRay Report Signed Patient: Mabel Moser MR#: [id number] : 1960 Acct:[id number] Age/Sex: 62 / F ADM Date: 10/28/22 Loc: ER Room: Type: [facility] ER Attending Dr: Copies to: Favian Helm PA-C Ordering Provider: Favian Helm PA-C Date of Service: 10/28/22 XR/XR chest 2V*: Shortness of Breath/Dyspnea Plain film chest 2 view HISTORY: Fluid overload. Shortness of breath. Headache. COMPARISON: 08/31/2018 FINDINGS: SUPPORT DEVICES: None POSTSURGICAL CHANGES: Right Fizalc-z-Gnjc intact with tip overlying the distal SVC. HEART: Within normal limits PULMONARY RAI: Within normal limits MEDIASTINUM: Unremarkable LUNGS AND PLEURA: No acute lung process, pleural effusion or pneumothorax identified. BONY STRUCTURES: Intact ADDITIONAL FINDINGS None XR/XR chest 2V* IMPRESSION: No acute process. Impression dictated by: Baljinder Ball M.D.10/28/2022 7:50 PM Dictation Location: [place] [address] Transcribed By: [facility] 10/28/221949 Dictated By: Baljinder Ball DO 10/28/221945 Signed By: 10/28/221949 [facility] BNPon 10-26-2022 Natriuretic peptide B (Bld) [Mass/Vol] 2657.0 pg/mL Critically high <=900.0 [facility] Comment on above: Performed By: #### C MP, BNP ####[facility] Mylpdzsxnp[address] [place], [place] [address]Dr. Airam Tripathi CBC AUTO DIFFon 10-26-2022 BASO # 0.0 103/ul Normal 0.0-0.1 [facility] Comment on above: Performed By: #### C BC ####[facility] Vayvxiibsf[address] [place], [place] [address]Dr. Airam Tripathi Basophils/100 WBC (Bld) 0.5 % Normal 0.2-2.0 [facility] Comment on above: Performed By: #### C BC ####[facility] Zzltzfsjqb8[address] [place], [place] [address]Dr. Airam Tripathi EO # 0.3 103/ul Normal 0.0-0.7 [facility] Comment on above: Performed By: #### C BC ####[facility] Bxupeobsjv55[address] [place], [place] [address]Dr. Airam Tripathi Eosinophils/100 WBC (Bld) 4.8 % Normal 0.9-7.0 [facility] Comment on above: Performed By: #### C BC ####[facility] Ejgyujpumg185[address] [place], [place] [address]Dr. Airam Tripathi Erythrocyte distribution width (RBC) [Ratio] 15.5 % Critically high 11.0-15.0 [facility] Comment on above: Performed By: #### C BC ####[facility] Xvodlwxyzc[address] [place], [place] [address]Dr. Airam Tripathi Hematocrit (Bld) [Volume fraction] 27.7 % Critically low 36.0-48.0 [facility] Comment on above: Performed By: #### C BC ####[facility] [address] [place] [address]DrKianna Airam Tripathi Hemoglobin (Bld) [Mass/Vol] 8.8 g/dL Critically low 12.0-16.0 [facility] Comment on above: Performed By: #### C BC ####[facility] Zzrwnaycxw[address] [place], [place] [address]DrKianna Airam Tripathi IG # 0.03 10e3/ul Normal 0.00-0.03 [facility] Comment on above: Performed By: #### C BC ####[facility] Ekkzudrqgb327[address] [place], [place] [address]DrKianna Airam Deuce IG % 0.5 % Normal 0.0-0.5 [facility] Comment on above: Performed By: #### C BC ####[facility] Umsihwvkmj24[address] [place], [place] [address]DrKianna Airam Deuce LYMPH # 1.6 103/ul Normal 1.2-3.8 [facility] Comment on above: Performed By: #### C BC ####[facility] Egrkaqdfhv103[address] [place], [place] [address]DrKianna Airam Tripathi Lymphocytes/100 WBC (Bld) 25.5 % Normal 20.5-60.0 [facility] Comment on above: Performed By: #### C BC ####[facility] Dqlkiuwxek[address] [place], [place] [address]DrKianna Airam Deuce MANUAL DIFF REQ NO Normal [facility] Comment on above: Performed By: #### C BC ####[facility] Tvprkpeyxk8[address] [place], [place] [address]DrKianna Airam Deuce MCH (RBC) [Entitic mass] 29.0 pg Normal 26.7-34.0 [facility] Comment on above: Performed By: #### C BC ####[facility] Csgnlvvbnt222[address] [place], [place] [address]DrKianna Selenaneil Tripathi MCHC (RBC) [Mass/Vol] 31.8 g/dL Normal 29.9-35.2 [facility] Comment on above: Performed By: #### C BC ####[facility] [address]vis[address] [place] [address]DrKianna Tripathi MCV (RBC) [Entitic vol] 91.4 fL Normal 81.0-99.0 [facility] Comment on above: Performed By: #### C BC ####[facility] Wdoazsnpwt6317[address] [place], [place] [address]DrKianna Tripathi MONO # 0.5 103/ul Normal 0.3-0.8 [facility] Comment on above: Performed By: #### C BC ####[facility] Npiqimbblv[address] [place], [place] [address]DrKianna Tripathi Monocytes/100 WBC (Bld) 7.5 % Normal 1.7-12.0 [facility] Comment on above: Performed By: #### C BC ####[facility] Logdzjlqru44[address] [place], [place] [address]DrKianna Tripathi NEUT # 3.9 103/ul Normal 1.4-6.5 [facility] Comment on above: Performed By: #### C BC ####[facility] Kjkvkcdahm654[address] [place], [place] [address]DrKianna Tripathi Neutrophils/100 WBC (Bld) 61.2 % Normal 43.0-75.0 [facility] Comment on above: Performed By: #### C BC ####[facility] Ebspvgqmcd050[address] [place], [place] [address]DrKianna Tripathi Platelet mean volume (Bld) [Entitic vol] 9.4 fL Critically low 9.5-13.5 [facility] Comment on above: Performed By: #### C BC ####[facility] Olrqiuhfzw878[address] [place], [place] [address]DrKianna Tripathi PLT 247 103/ul Normal 150-450 [facility] Comment on above: Performed By: #### C BC ####[facility] Qazsxbepdl[address] [place], [place] [address]DrKianna Tripathi RBC 3.03 106/ul Critically low 4.20-5.40 [facility] Comment on above: Performed By: #### C BC ####[facility] [address] [place] [address]Dr. Airam Tripathi WBC 6.4 103/ul Normal 4.0-11.0 [facility] Comment on above: Performed By: #### C BC ####[facility] Lvmhlyudno422[address] [place], [place] [address]Dr. Airam Tripathi PROF 14(COMP METB)on 023 Albumin [Mass/Vol] 2.5 g/dL Critically low 3.4-5.0 [facility] Comment on above: Performed By: #### C MP, BNP ####[facility] Arfsqprwfu106[address] [place], [place] [address]Dr. Airam Tripathi Albumin/Globulin [Mass ratio] 0.9 {ratio} Normal [facility] Comment on above: Performed By: #### C MP, BNP ####[facility] Xxisovognp913[address] [place], [place] [address]Dr. Airam Tripathi ALP [Catalytic activity/Vol] 108 U/L Normal 46-116 [facility] Comment on above: Performed By: #### C MP, BNP ####[facility] Wrzcohpzjm544[address] [place], [place] [address]Dr. Airam Tripathi ALT [Catalytic activity/Vol] 20 U/L Normal 14-59 [facility] Comment on above: Performed By: #### C MP, BNP ####[facility] Bhwmzidizz355[address] [place], [place] [address]Dr. Airam Tripathi Anion gap [Moles/Vol] 10.4 mmol/L Normal [facility] Comment on above: Performed By: #### C MP, BNP ####[facility] Ujosxaumac112[address] [place], [place] [address]Dr. Airam Tripathi AST [Catalytic activity/Vol] 20 U/L Normal 15-37 [facility] Comment on above: Performed By: #### C MP, BNP ####[facility] Dpwjoizgmq174[address] [place], [place] [address]Dr. Airam Tripathi Bilirubin [Mass/Vol] 0.2 mg/dL Normal 0.2-1.0 [facility] Comment on above: Performed By: #### C MP, BNP ####[facility] Mrdmizhflr3416[address] [place], [place] [address]Dr. Airam Tripathi Calcium [Mass/Vol] 8.0 mg/dL Critically low 8.5-10.1 [facility] Comment on above: Performed By: #### C MP, BNP ####[facility] Gjcqsilzlz514[address] [place], [place] [address]Dr. Airam Tripathi Chloride [Moles/Vol] 100 mmol/L Normal 98-107 [facility] Comment on above: Performed By: #### C MP, BNP ####[facility] Zamoqnwmfh504[address] [place], [place] [address]Dr. Airam Tripathi CO2 [Moles/Vol] 28.6 mmol/L Normal 21.0-32.0 [facility] Comment on above: Performed By: #### C MP, BNP ####[facility] Jeuvkgzwkn315[address] [place], [place] [address]Dr. Airam Tripathi Creatinine [Mass/Vol] 1.66 mg/dL Critically high 0.55-1.02 [facility] Comment on above: Performed By: #### C MP, BNP ####[facility] Mlwtdeylrc428[address] [place], [place] [address]Dr. Airam Tripathi EGFR-AF ROMANIAN 38 mL/min/1.73m2 Critically low >=60 [facility] Comment on above: Performed By: #### C MP, BNP ####[facility] Zncqrfkvfi578[address] [place], [place] [address]Dr. Airam Tripathi EGFR-NON AF ROMANIAN 32 mL/min/1.73m2 Critically low >=60 [facility] Comment on above: Performed By: #### C MP, BNP ####[facility] Qkqwtjkkpr4029[address] [place], [place] [address]Dr. Airam Tripathi Globulin (S) [Mass/Vol] 2.8 g/dL Normal [facility] Comment on above: Performed By: #### C MP, BNP ####[facility] [address] [place] [address]Dr. Airam Tripathi Glucose [Mass/Vol] 102 mg/dL Normal 74-106 [facility] Comment on above: Performed By: #### C MP, BNP ####[facility] Bxhfypjhft7827[address] [place], [place] [address]Dr. Airam Tripathi Potassium [Moles/Vol] 5.0 mmol/L Normal 3.5-5.1 [facility] Comment on above: Performed By: #### C MP, BNP ####[facility] Bjuhsdjpri780[address] [place], [place] [address]Dr. Airam Tripathi Protein [Mass/Vol] 5.3 g/dL Critically low 6.4-8.2 [facility] Comment on above: Performed By: #### C MP, BNP ####[facility] Ojkqtaqzby666[address] [place], [place] [address]Dr. Airam Tripathi Sodium [Moles/Vol] 134 mmol/L Critically low 136-145 [facility] Comment on above: Performed By: #### C MP, BNP ####[facility] Qbqlngodun636[address] [place], [place] [address]Dr. Airam Tripathi Urea nitrogen [Mass/Vol] 45.0 mg/dL Critically high 7.0-18.0 [facility] Comment on above: Performed By: #### C MP, BNP ####[facility] Xxuocgokam83[address] [place], [place] [address]Dr. Airam Tripathi Urea nitrogen/Creatinine [Mass ratio] 27.1 mg/mg Normal [facility] Comment on above: Performed By: #### C MP, BNP ####[facility] Azgigfnavb755[address] [place], [place] [address]Dr. Airam Tripathi BNPon 10-25-2022 Natriuretic peptide B (Bld) [Mass/Vol] 4569.0 pg/mL Critically high <=900.0 [facility] Comment on above: Performed By: #### C MP, BNP ####[facility] Efzifcabtv108[address] [place], [place] [address]Dr. Airam Tripathi CBC AUTO DIFFon 05-02-2023 BASO # 0.0 103/ul Normal 0.0-0.1 [facility] Comment on above: Performed By: #### C BC ####[facility] [address]keys[address] [place] [address]DrKianna Tripathi Basophils/100 WBC (Bld) 0.5 % Normal 0.2-2.0 [facility] Comment on above: Performed By: #### C BC ####[facility] Mimrojlmnq696[address] [place], [place] [address]DrKianna Tripathi EO # 0.3 103/ul Normal 0.0-0.7 [facility] Comment on above: Performed By: #### C BC ####[facility] Aeqsoihvvv3219[address] [place], [place] [address]DrKianna Tripathi Eosinophils/100 WBC (Bld) 5.6 % Normal 0.9-7.0 [facility] Comment on above: Performed By: #### C BC ####[facility] Kenbaesakv04[address] [place], [place] [address]DrKianna Tripathi Erythrocyte distribution width (RBC) [Ratio] 15.7 % Critically high 11.0-15.0 [facility] Comment on above: Performed By: #### C BC ####[facility] Tawmkahzmj758[address] [place], [place] [address]DrKianna Tripathi Hematocrit (Bld) [Volume fraction] 30.1 % Critically low 36.0-48.0 [facility] Comment on above: Performed By: #### C BC ####[facility] Fislhctlvb032[address] [place], [place] [address]DrKianna Tripathi Hemoglobin (Bld) [Mass/Vol] 9.2 g/dL Critically low 12.0-16.0 [facility] Comment on above: Performed By: #### C BC ####[facility] Jvfcrhcztq[address] [place], [place] [address]DrKianna Tripathi IG # 0.03 10e3/ul Normal 0.00-0.03 [facility] Comment on above: Performed By: #### C BC ####[facility] Qagwwonbza345[address] [place], [place] [address]Dr. Airam Tripathi IG % 0.5 % Normal 0.0-0.5 [facility] Comment on above: Performed By: #### C BC ####[facility] [address] [place] [address]DrKianna Tripathi LYMPH # 1.7 103/ul Normal 1.2-3.8 [facility] Comment on above: Performed By: #### C BC ####[facility] M[address]kehvjig22[address] [place] [address]DrKianna Tripathi Lymphocytes/100 WBC (Bld) 28.9 % Normal 20.5-60.0 [facility] Comment on above: Performed By: #### C BC ####[facility] Nzqwdiqgdh[address] [place], [place] [address]DrKianna Tripathi MANUAL DIFF REQ NO Normal [facility] Comment on above: Performed By: #### C BC ####[facility] [address]ntcqtdvs[address] [place] [address]DrKianna Tripathi MCH (RBC) [Entitic mass] 28.4 pg Normal 26.7-34.0 [facility] Comment on above: Performed By: #### C BC ####[facility] Apfaxorpip[address] [place], [place] [address]DrKianna Tripathi MCHC (RBC) [Mass/Vol] 30.6 g/dL Normal 29.9-35.2 [facility] Comment on above: Performed By: #### C BC ####[facility] Wpjyjzxebh[address] [place], [place] [address]DrKianna Tripathi MCV (RBC) [Entitic vol] 92.9 fL Normal 81.0-99.0 [facility] Comment on above: Performed By: #### C BC ####[facility] Xfyufkqeyi[address] [place], [place] [address]DrKianna Tripathi MONO # 0.5 103/ul Normal 0.3-0.8 [facility] Comment on above: Performed By: #### C BC ####[facility] Rjrbobbmpu[address] [place], [place] [address]DrKianna Tripathi Monocytes/100 WBC (Bld) 8.5 % Normal 1.7-12.0 [facility] Comment on above: Performed By: #### C BC ####[facility] [address]ldlgt[address] [place] [address]Dr. Airam Tripathi NEUT # 3.2 103/ul Normal 1.4-6.5 [facility] Comment on above: Performed By: #### C BC ####[facility] T[address]xe[address] [place] [address]DrKianna Airam Tripathi Neutrophils/100 WBC (Bld) 56.0 % Normal 43.0-75.0 [facility] Comment on above: Performed By: #### C BC ####[facility] C[address]ypikfzle[address] [place] [address]DrKianna Airam Tripathi Platelet mean volume (Bld) [Entitic vol] 9.4 fL Critically low 9.5-13.5 [facility] Comment on above: Performed By: #### C BC ####[facility] Nzleqlzuyf639[address] [place], [place] [address]DrKianna Airam Tripathi PLT 272 103/ul Normal 150-450 [facility] Comment on above: Performed By: #### C BC ####[facility] Mqdltkalnk[address] [place], [place] [address]DrKianna Airam Tripathi RBC 3.24 106/ul Critically low 4.20-5.40 [facility] Comment on above: Performed By: #### C BC ####[facility] Ykcfiqbktu887[address] [place], [place] [address]DrKianna Airam Tripathi WBC 5.8 103/ul Normal 4.0-11.0 [facility] Comment on above: Performed By: #### C BC ####[facility] F[address]clchxgxk96[address] [place], [place] [address]DrKianna Airam Tripathi OSMOLALITYon 10-25-2022 Osmolality [Osmolality] 282 mosm/kg Normal 275-295 [facility] Comment on above: Performed By: #### O SMO ####[facility] Sjggvrarhl214[address] [place], [place] [address]DrKianna Selenaneil Tripathi PROF 14(COMP METB)on 023 Albumin [Mass/Vol] 2.7 g/dL Critically low 3.4-5.0 [facility] Comment on above: Performed By: #### C MP, BNP ####[facility] [address]mpac[address] [place] [address]Dr. Airam Tripathi Albumin/Globulin [Mass ratio] 0.9 {ratio} Normal [facility] Comment on above: Performed By: #### C MP, BNP ####[facility] [address] [place] [address]Dr. Airam Tripathi ALP [Catalytic activity/Vol] 122 U/L Critically high 46-116 [facility] Comment on above: Performed By: #### C MP, BNP ####[facility] Tfccvohqes[address] [place], [place] [address]Dr. Airam Tripathi ALT [Catalytic activity/Vol] 23 U/L Normal 14-59 [facility] Comment on above: Performed By: #### C MP, BNP ####[facility] Dmqmynzjth127[address] [place], [place] [address]Dr. Airam Tripathi Anion gap [Moles/Vol] 10.5 mmol/L Normal [facility] Comment on above: Performed By: #### C MP, BNP ####[facility] Kojdtkwzto18[address] [place], [place] [address]Dr. Airam Tripathi AST [Catalytic activity/Vol] 22 U/L Normal 15-37 [facility] Comment on above: Performed By: #### C MP, BNP ####[facility] Kgfcapwyor478[address] [place], [place] [address]Dr. Airam Tripathi Bilirubin [Mass/Vol] 0.2 mg/dL Normal 0.2-1.0 [facility] Comment on above: Performed By: #### C MP, BNP ####[facility] Lclxddceey20[address] [place], [place] [address]Dr. Airam Tripathi Calcium [Mass/Vol] 8.3 mg/dL Critically low 8.5-10.1 [facility] Comment on above: Performed By: #### C MP, BNP ####[facility] [address]lxmpzbot[address] [place] [address]Dr. Airam rTipathi Chloride [Moles/Vol] 102 mmol/L Normal 98-107 [facility] Comment on above: Performed By: #### C MP, BNP ####[facility] Maefbmcgka277[address] [place], [place] [address]Dr. Airam Tripathi CO2 [Moles/Vol] 29.7 mmol/L Normal 21.0-32.0 [facility] Comment on above: Performed By: #### C MP, BNP ####[facility] Ruocxoxllz620[address] [place], [place] [address]Dr. Airam Tripathi Creatinine [Mass/Vol] 1.31 mg/dL Critically high 0.55-1.02 [facility] Comment on above: Performed By: #### C MP, BNP ####[facility] Pktwglessm420[address] [place], [place] [address]Dr. Airam Tripathi EGFR-AF ROMANIAN 50 mL/min/1.73m2 Critically low >=60 [facility] Comment on above: Performed By: #### C MP, BNP ####[facility] Scntgiuaeu972[address] [place], [place] [address]Dr. Airam Tripathi EGFR-NON AF ROMANIAN 41 mL/min/1.73m2 Critically low >=60 [facility] Comment on above: Performed By: #### C MP, BNP ####[facility] Sdctjuvrlr[address] [place], [place] [address]Dr. Airam Tripathi Globulin (S) [Mass/Vol] 2.9 g/dL Normal [facility] Comment on above: Performed By: #### C MP, BNP ####[facility] Vsammvttpq330[address] [place], [place] [address]Dr. Airam Tripathi Glucose [Mass/Vol] 94 mg/dL Normal 74-106 [facility] Comment on above: Performed By: #### C MP, BNP ####[facility] Suvapqfusy279[address] [place], [place] [address]Dr. Airam Tripathi Potassium [Moles/Vol] 4.2 mmol/L Normal 3.5-5.1 [facility] Comment on above: Performed By: #### C MP, BNP ####[facility] [address]fz[address] [place] [address]Dr. Airam Tripathi Protein [Mass/Vol] 5.6 g/dL Critically low 6.4-8.2 [facility] Comment on above: Performed By: #### C MP, BNP ####[facility] Nfosbayriv466[address] [place], [place] [address]Dr. Selenaneil Tripathi Sodium [Moles/Vol] 138 mmol/L Normal 136-145 [facility] Comment on above: Performed By: #### C MP, BNP ####[facility] Mnpdfeqyob[address] [place], [place] [address]Dr. Selenaneil Deuce Urea nitrogen [Mass/Vol] 33.0 mg/dL Critically high 7.0-18.0 [facility] Comment on above: Performed By: #### C MP, BNP ####[facility] Prqbhpwcmj233[address] [place], [place] [address]Dr. Airam Tripathi Urea nitrogen/Creatinine [Mass ratio] 25.2 mg/mg Normal [facility] Comment on above: Performed By: #### C MP, BNP ####[facility] Icuzhakpyt[address] [place], [place] [address]Dr. Airam Deuce BNPon 10-24-2022 Natriuretic peptide B (Bld) [Mass/Vol] 3805.0 pg/mL Critically high <=900.0 [facility] Comment on above: Performed By: #### H STROPN, BNP, CMP ####[facility] Jjjoikbthn[address] [place], [place] [address]Dr. Airam Deuce CBC AUTO DIFFon 10-24-2022 BASO # 0.0 103/ul Normal 0.0-0.1 [facility] Comment on above: Performed By: #### C BC ####[facility] Jnjnkllbri6[address] [place], [place] [address]Dr. Airam Deuce Basophils/100 WBC (Bld) 0.3 % Normal 0.2-2.0 [facility] Comment on above: Performed By: #### C BC ####[facility] Xbqzlktnop[address] [place], [place] [address]Dr. Airam Tripathi EO # 0.3 103/ul Normal 0.0-0.7 [facility] Comment on above: Performed By: #### C BC ####[facility] [address]by[address] [place] [address]Dr. Airam Tripathi Eosinophils/100 WBC (Bld) 4.2 % Normal 0.9-7.0 [facility] Comment on above: Performed By: #### C BC ####[facility] Kxlcfngfls[address] [place], [place] [address]Dr. Airam Tripathi Erythrocyte distribution width (RBC) [Ratio] 15.6 % Critically high 11.0-15.0 [facility] Comment on above: Performed By: #### C BC ####[facility] Zchzupioxh[address] [place], [place] [address]Dr. Airam Tripathi Hematocrit (Bld) [Volume fraction] 30.0 % Critically low 36.0-48.0 [facility] Comment on above: Performed By: #### C BC ####[facility] Mnstxqzotx087[address] [place], [place] [address]Dr. Airam Tripathi Hemoglobin (Bld) [Mass/Vol] 9.3 g/dL Critically low 12.0-16.0 [facility] Comment on above: Performed By: #### C BC ####[facility] Xtxidnkbqo66[address] [place], [place] [address]Dr. Airam Deuce IG # 0.03 10e3/ul Normal 0.00-0.03 [facility] Comment on above: Performed By: #### C BC ####[facility] Jyoylnwrwy028[address] [place], [place] [address]Dr. Airam Deuce IG % 0.5 % Normal 0.0-0.5 [facility] Comment on above: Performed By: #### C BC ####[facility] Utepfafoxz554[address] [place], [place] [address]DrKianna Selenaneil Tripathi LYMPH # 1.4 103/ul Normal 1.2-3.8 [facility] Comment on above: Performed By: #### C BC ####[facility] Lhrhpnmyng694[address] [place], [place] [address]Dr. Airam Tripathi Lymphocytes/100 WBC (Bld) 22.5 % Normal 20.5-60.0 [facility] Comment on above: Performed By: #### C BC ####[facility] [address]ia[address] [place] [address]DrKianna Tripathi MANUAL DIFF REQ NO Normal [facility] Comment on above: Performed By: #### C BC ####[facility] Hwznkssrys39[address] [place] [address]Dr. Airam Tripathi MCH (RBC) [Entitic mass] 28.7 pg Normal 26.7-34.0 [facility] Comment on above: Performed By: #### C BC ####[facility] Xzhirqqjhm593[address] [place], [place] [address]Dr. Airam Tripathi MCHC (RBC) [Mass/Vol] 31.0 g/dL Normal 29.9-35.2 [facility] Comment on above: Performed By: #### C BC ####[facility] Tcykesazkd183[address] [place], [place] [address]Dr. Airam Tripathi MCV (RBC) [Entitic vol] 92.6 fL Normal 81.0-99.0 [facility] Comment on above: Performed By: #### C BC ####[facility] Jlgdwceype82[address] [place], [place] [address]DrKianna Tripathi MONO # 0.4 103/ul Normal 0.3-0.8 [facility] Comment on above: Performed By: #### C BC ####[facility] Lrxwpkrmwh498[address] [place], [place] [address]DrKianna Tripathi Monocytes/100 WBC (Bld) 7.3 % Normal 1.7-12.0 [facility] Comment on above: Performed By: #### C BC ####[facility] Mkmmgokvwx469[address] [place], [place] [address]DrKianna Tripathi NEUT # 3.9 103/ul Normal 1.4-6.5 [facility] Comment on above: Performed By: #### C BC ####[facility] Gttktvoxqs8[address] [place], [place] [address]DrKianna Tripathi Neutrophils/100 WBC (Bld) 65.2 % Normal 43.0-75.0 [facility] Comment on above: Performed By: #### C BC ####[facility] Mdznudnbrt0139 [place] [address]DrKianna Airam Tripathi Platelet mean volume (Bld) [Entitic vol] 9.0 fL Critically low 9.5-13.5 [facility] Comment on above: Performed By: #### C BC ####[facility] Trjvxvkkip14[address] [place] [address]DrKianna Airam Tripathi PLT 247 103/ul Normal 150-450 [facility] Comment on above: Performed By: #### C BC ####[facility] Fbtkdqcoxk197[address] [place], [place] [address]DrKianna Airam Tripathi RBC 3.24 106/ul Critically low 4.20-5.40 [facility] Comment on above: Performed By: #### C BC ####[facility] Qcwnkunnzm[address] [place] [address] Airam Tripathi WBC 6.0 103/ul Normal 4.0-11.0 [facility] Comment on above: Performed By: #### C BC ####[facility] Luhyfvubra[address] [place] [address] Airam Tripathi CULTURE URINEon 10-24-2022 CULTURE URINE Culture Observations : LIGHT GROWTH OF MIXED GENITAL GREGORY. NO POTENTIAL PATHOGENS SEEN. Normal [facility] Comment on above: Performed By: #### U RCX ####[facility] Uhipilqfjq02[address] [place], [place] [address]DrKianna Airam Tripathi POINT OF CARE GLUCOSEon Glucose [Mass/Vol] 118 mg/dL Critically high 74-106 [facility] Comment on above: Performed By: #### P OCGLUC ####[facility] Ibdxziqpna59[address] [place], [place] [address]DrKianna Airam Deuce PROF 14(COMP METB)on 023 Albumin [Mass/Vol] 3.1 g/dL Critically low 3.4-5.0 [facility] Comment on above: Performed By: #### H STROPN, BNP, CMP ####[facility] Wataequxrf39[address] [place] [address]Dr. Airam Deuce Albumin/Globulin [Mass ratio] 1.0 {ratio} Normal [facility] Comment on above: Performed By: #### H STROPN, BNP, CMP ####[facility] Dldqwsgexl9332 [place] [address]Dr. Selenaneil Deuce ALP [Catalytic activity/Vol] 131 U/L Critically high 46-116 [facility] Comment on above: Performed By: #### H STROPN, BNP, CMP ####[facility] Fxwzmkswxl6360 [place] [address]Dr. Airam Tripathi ALT [Catalytic activity/Vol] 26 U/L Normal 14-59 [facility] Comment on above: Performed By: #### H STROPN, BNP, CMP ####[facility] Llatxibxbl9665 [place] [address]Dr. Airam Tripathi Anion gap [Moles/Vol] 11.2 mmol/L Normal [facility] Comment on above: Performed By: #### H STROPN, BNP, CMP ####[facility] Xwpmzyvexf305[address] [place], [place] [address]Dr. Airam Tripathi AST [Catalytic activity/Vol] 31 U/L Normal 15-37 [facility] Comment on above: Performed By: #### H STROPN, BNP, CMP ####[facility] Altrntweii2963 [place] [address]Dr. Airam Tripathi Bilirubin [Mass/Vol] 0.2 mg/dL Normal 0.2-1.0 [facility] Comment on above: Performed By: #### H STROPN, BNP, CMP ####[facility] Wbvgdcokbg8876 [place] [address]Dr. Airam Tripathi Calcium [Mass/Vol] 8.6 mg/dL Normal 8.5-10.1 [facility] Comment on above: Performed By: #### H STROPN, BNP, CMP ####[facility] Egandlavrq2919 [place] [address]Dr. Airam Tripathi Chloride [Moles/Vol] 102 mmol/L Normal 98-107 [facility] Comment on above: Performed By: #### H STROPN, BNP, CMP ####[facility] Mptjqfyqdb9060 [place] [address]Dr. Airam Tripathi CO2 [Moles/Vol] 27.4 mmol/L Normal 21.0-32.0 [facility] Comment on above: Performed By: #### H STROPN, BNP, CMP ####[facility] Rrqlevjbba[address] [place] [address]Dr. Airam Tripathi Creatinine [Mass/Vol] 1.23 mg/dL Critically high 0.55-1.02 [facility] Comment on above: Performed By: #### H STROPN, BNP, CMP ####[facility] Frbulybbnl[address] [place], [place] [address]Dr. Airam Tripathi EGFR-AF ROMANIAN 54 mL/min/1.73m2 Critically low >=60 [facility] Comment on above: Performed By: #### H STROPN, BNP, CMP ####[facility] Spikrcjgzz103[address] [place], [place] [address]Dr. Airam Tripathi EGFR-NON AF ROMANIAN 45 mL/min/1.73m2 Critically low >=60 [facility] Comment on above: Performed By: #### H STROPN, BNP, CMP ####[facility] Nkibdyfbdl7264 [place] [address]Dr. Airam Tripathi Globulin (S) [Mass/Vol] 3.1 g/dL Normal [facility] Comment on above: Performed By: #### H STROPN, BNP, CMP ####[facility] Vemmdkjhaw9[address] [place] [address]Dr. Airam Tripathi Glucose [Mass/Vol] 90 mg/dL Normal 74-106 [facility] Comment on above: Performed By: #### H STROPN, BNP, CMP ####[facility] Qwrabzaiea3495 [place] [address]Dr. Airam Tripathi Potassium [Moles/Vol] 5.6 mmol/L Critically high 3.5-5.1 [facility] Comment on above: Performed By: #### H STROPN, BNP, CMP ####[facility] Trzjmshjni380[address] [place] [address]Dr. Airam Tripathi Protein [Mass/Vol] 6.2 g/dL Critically low 6.4-8.2 [facility] Comment on above: Performed By: #### H STROPN, BNP, CMP ####[facility] Anrkntmajp1822 [place] [address]Dr. Airam Tripathi Sodium [Moles/Vol] 135 mmol/L Critically low 136-145 [facility] Comment on above: Performed By: #### H STROPN, BNP, CMP ####[facility] Eathxlgokd[address] [place] [address]Dr. Airam Tripathi Urea nitrogen [Mass/Vol] 38.0 mg/dL Critically high 7.0-18.0 [facility] Comment on above: Performed By: #### H STROPN, BNP, CMP ####[facility] Kltkbklrnh4565 [place] [address]Dr. Airam Tripathi Urea nitrogen/Creatinine [Mass ratio] 30.9 mg/mg Normal [facility] Comment on above: Performed By: #### H STROPN, BNP, CMP ####[facility] Nzrwdccubf2274 [place] [address]Dr. Selenaneil Tripathi TROPONIN, HIGH SENSITIVITYon 10-24-2022 HSTROP 8.0 pg/mL Normal 4.0-51.3 [facility] Comment on above: Result Comment: CUT- OFF POINTS HAVE BEEN ESTABLISHED BASED ON THE FOURTH UNIVERSAL DEFINITIONS OF MYOCARDIALINFARCTION. THE UPPER REFERENCE LIMIT (URL) OF TROPONIN, DEFINED THE 99TH PERCENTILE OFcTnI DISTRIBUTION IN A REFERENCE POPULATION, HAS BEEN CONFIRMED THE DECISION THRESHOLDFOR DE DIAGNOSIS. Performed By: #### H STROPN, BNP, CMP ####[facility] Yeviyecspu6181 [place] [address]Dr. Airam Tripathi UA RANDOM W/MICROSCOPICon BACTERIA NONE SEEN Normal NONE SEEN [facility] Comment on above: Performed By: #### U AMIC ####[facility] Xzakkpkoze8466 [place] [address]Dr. Airam Tripathi Bilirubin Ql (U) Negative Normal NEGATIVE [facility] Comment on above: Performed By: #### U AMIC ####[facility] Dmsrpzpilb87[address] [place], [place] [address]Dr. Airam Tripathi CAST NONE SEEN Normal NONE SEEN [facility] Comment on above: Performed By: #### U AMIC ####[facility] Wslbwhfcrx2387 [place] [address]Dr. Airam Tripathi Clarity (U) CLEAR Normal CLEAR [facility] Comment on above: Performed By: #### U AMIC ####[facility] Wtcogbybil0912[address] [place], [place] [address]Dr. Airam Tripathi Color (U) LT. YELLOW Normal YELLOW [facility] Comment on above: Performed By: #### U AMIC ####[facility] Galyzakqti850[address] [place], [place] [address]Dr. Airam Tripathi Crystals LM Nom (Urine sed) NONE SEEN Normal NONE SEEN [facility] Comment on above: Performed By: #### U AMIC ####[facility] Kaaaaxzurg80220[address] [place], [place] [address]Dr. Airam Tripathi Epithelial cells LM Ql (Urine sed) RARE Normal NONE SEEN /RARE [facility] Comment on above: Performed By: #### U AMIC ####[facility] Pageazikmi339[address] [place], [place] [address]Dr. Airam Tripathi Glucose Ql (U) Negative Normal NEGATIVE [facility] Comment on above: Performed By: #### U AMIC ####[facility] Bcojzwhsgi350[address] [place], [place] [address]Dr. Airam Tripathi Hemoglobin Ql (U) Negative Normal NEGATIVE [facility] Comment on above: Performed By: #### U AMIC ####[facility] Abglouqjmm228207 [address] [place], [place] [address]Dr. Airam Tripathi Ketones Ql (U) Negative Normal NEGATIVE [facility] Comment on above: Performed By: #### U AMIC ####[facility] Detngdtvvl413[address] [place], [place] [address]Dr. Airam Tripathi LEUKOCYTES Negative Normal NEGATIVE [facility] Comment on above: Performed By: #### U AMIC ####[facility] Bjehaymwjo8927 [place] [address]Dr. Airam Tripathi MUCOUS NONE SEEN Normal NONE SEEN [facility] Comment on above: Performed By: #### U AMIC ####[facility] Yfbdlchbcr9751 [place] [address]Dr. Airam Tripathi Nitrite Ql (U) Negative Normal NEGATIVE [facility] Comment on above: Performed By: #### U AMIC ####[facility] Iklgaxajfv4321 [place] [address]Dr. Airam Tripathi pH (U) 7.0 [pH] Normal 5-9 [facility] Comment on above: Performed By: #### U AMIC ####[facility] Mdixqzxezj7079 [place] [address]Dr. Airam Tripathi RBC 0-2 Normal 0-2 [facility] Comment on above: Performed By: #### U AMIC ####[facility] Zujtdmztli07[address] [place], [place] [address]Dr. Airam Tripathi SPEC GRAVITY 1.015 Normal 1.005-<=1.02 5 [facility] Comment on above: Performed By: #### U AMIC ####[facility] Rtjnehansk68350[address] [place], [place] [address]Dr. Airam Tripathi UA PROTEIN Negative Normal NEGATIVE/ TRACE [facility] Comment on above: Performed By: #### U AMIC ####[facility] Mcrazybmmz664[address] [place], [place] [address]Dr. Airam Tripathi Urobilinogen Qn (U) 0.2 {Ligia'U}/dL Normal 0.2 - 1. 0 [facility] Comment on above: Performed By: #### U AMIC ####[facility] Lmriihglvb13[address] [place], [place] [address]Dr. Airam Tripathi WBC NONE SEEN Normal NONE SEEN [facility] Comment on above: Performed By: #### U AMIC ####[facility] Psvcsyqbys860[address] [place], [place] [address]Dr. Airam Tripathi XR CHEST 1 Von 10-24-2022 XR CHEST 1 V Normal [facility] CBC AUTO DIFFon 10-19-2022 BASO # 0.0 103/ul Normal 0.0-0.1 [facility] Comment on above: Performed By: #### C BC ####[facility] Vgvcriytys7049 [place] [address]Dr. Airam Tripathi Basophils/100 WBC (Bld) 0.5 % Normal 0.2-2.0 [facility] Comment on above: Performed By: #### C BC ####[facility] Wckwzjrtso3624[address] [place], [place] [address]Dr. Airam Tripathi EO # 0.3 103/ul Normal 0.0-0.7 [facility] Comment on above: Performed By: #### C BC ####[facility] Fkhastjmdl675[address] [place], [place] [address]Dr. Airam Tripathi Eosinophils/100 WBC (Bld) 3.3 % Normal 0.9-7.0 [facility] Comment on above: Performed By: #### C BC ####[facility] Lnnbgcvzrn830[address] [place], [place] [address]Dr. Airam Tripathi Erythrocyte distribution width (RBC) [Ratio] 15.0 % Normal 11.0-15.0 [facility] Comment on above: Performed By: #### C BC ####[facility] Mzgujhrise877[address] [place], [place] [address]Dr. Airam Tripathi Hematocrit (Bld) [Volume fraction] 32.9 % Critically low 36.0-48.0 [facility] Comment on above: Performed By: #### C BC ####[facility] Xrzuoeyylw502[address] [place], [place] [address]Dr. Airam Tripathi Hemoglobin (Bld) [Mass/Vol] 10.1 g/dL Critically low 12.0-16.0 [facility] Comment on above: Performed By: #### C BC ####[facility] Binejsonuv35[address] [place], [place] [address]Dr. Airam Tripathi IG # 0.04 10e3/ul Critically high 0.00-0.03 [facility] Comment on above: Performed By: #### C BC ####[facility] [address]wanlksq04[address] [place] [phone]. Airam Tripathi IG % 0.5 % Normal 0.0-0.5 [facility] Comment on above: Performed By: #### C BC ####[facility] Fyugnpqfbe39[address] [place] [phone]. Airam Tripathi LYMPH # 1.5 103/ul Normal 1.2-3.8 [facility] Comment on above: Performed By: #### C BC ####[facility] Pxjpiqzwck4228 [place] [phone]. Airam Tripathi Lymphocytes/100 WBC (Bld) 18.1 % Critically low 20.5-60.0 [facility] Comment on above: Performed By: #### C BC ####[facility] Iucqitnafl9604 [place] [address]Dr. Airam Tripathi MANUAL DIFF REQ NO Normal [facility] Comment on above: Performed By: #### C BC ####[facility] Jeqfnendof5747 [place] [phone]. Airam Tripathi MCH (RBC) [Entitic mass] 28.3 pg Normal 26.7-34.0 [facility] Comment on above: Performed By: #### C BC ####[facility] Zefmdandzm4353 [place] [phone]. Airam Tripathi MCHC (RBC) [Mass/Vol] 30.7 g/dL Normal 29.9-35.2 [facility] Comment on above: Performed By: #### C BC ####[facility] Ekpxkgdrrn[address] [place], [place] [address]Dr. Airam Tripathi MCV (RBC) [Entitic vol] 92.2 fL Normal 81.0-99.0 [facility] Comment on above: Performed By: #### C BC ####[facility] Vzfclzxlxo9516 [place] [phone]. Airam Tripathi MONO # 0.7 103/ul Normal 0.3-0.8 [facility] Comment on above: Performed By: #### C BC ####[facility] Qxkdmykcwr3777 [place] [phone]. Airam Tripathi Monocytes/100 WBC (Bld) 7.7 % Normal 1.7-12.0 [facility] Comment on above: Performed By: #### C BC ####[facility] Koddacczxa6[address] [place] [phone]. Airam Tripathi NEUT # 5.9 103/ul Normal 1.4-6.5 [facility] Comment on above: Performed By: #### C BC ####[facility] Qmwjpyuryd4815 [place] [phone]. Airam Tripathi Neutrophils/100 WBC (Bld) 69.9 % Normal 43.0-75.0 [facility] Comment on above: Performed By: #### C BC ####[facility] Elfnjycgco3929 [place] [address]Dr. Airam Tripathi Platelet mean volume (Bld) [Entitic vol] 9.3 fL Critically low 9.5-13.5 [facility] Comment on above: Performed By: #### C BC ####[facility] Swtkpmcdlf0519 [place] [address]Dr. Airam Tripathi PLT 293 103/ul Normal 150-450 [facility] Comment on above: Performed By: #### C BC ####[facility] Ehdezpxlzq8342 [place] [phone]. Airam Tripathi RBC 3.57 106/ul Critically low 4.20-5.40 [facility] Comment on above: Performed By: #### C BC ####[facility] Udwppgescv0633 [place] [address]Dr. Airam Tripathi WBC 8.4 103/ul Normal 4.0-11.0 [facility] Comment on above: Performed By: #### C BC ####[facility] Xtirlakyui9895 [place] [address]DrKianna Selenaneil Tripathi PROF 14(COMP METB)on 023 Albumin [Mass/Vol] 3.1 g/dL Critically low 3.4-5.0 [facility] Comment on above: Performed By: #### C MP ####[facility] Msbdfsufix4822 [place] [address]Dr. Airam Deuce Albumin/Globulin [Mass ratio] 0.9 {ratio} Normal [facility] Comment on above: Performed By: #### C MP ####[facility] Czddtaawxe7154 [place] [phone]. Airam Deuce ALP [Catalytic activity/Vol] 117 U/L Critically high 46-116 [facility] Comment on above: Performed By: #### C MP ####[facility] Laxptpgaks5397 [place] [address]Dr. Airam Deuce ALT [Catalytic activity/Vol] 24 U/L Normal 14-59 [facility] Comment on above: Performed By: #### C MP ####[facility] Gaehacnfqf009[address] [place], [place] [address]Dr. Airam Tripathi Anion gap [Moles/Vol] 11.1 mmol/L Normal [facility] Comment on above: Performed By: #### C MP ####[facility] Jbzaczpuiv90[address] [place], [place] [address]Dr. Airam Deuce AST [Catalytic activity/Vol] 22 U/L Normal 15-37 [facility] Comment on above: Performed By: #### C MP ####[facility] Ittbpyabng04[address] [place], [place] [address]Dr. Airam Tripathi Bilirubin [Mass/Vol] 0.2 mg/dL Normal 0.2-1.0 [facility] Comment on above: Performed By: #### C MP ####[facility] Dwqnexrhsc87[address] [place], [place] [address]Dr. Airam Tripathi Calcium [Mass/Vol] 8.4 mg/dL Critically low 8.5-10.1 [facility] Comment on above: Performed By: #### C MP ####[facility] Ilvvsgbggj864[address] [place], [place] [address]Dr. Airam Tripathi Chloride [Moles/Vol] 103 mmol/L Normal 98-107 [facility] Comment on above: Performed By: #### C MP ####[facility] Cbmidcxhtq6453 [place] [phone]. Airam Tripathi CO2 [Moles/Vol] 25.0 mmol/L Normal 21.0-32.0 [facility] Comment on above: Performed By: #### C MP ####[facility] Hmquztojij3163 [place] [phone]. Airam Tripathi Creatinine [Mass/Vol] 1.27 mg/dL Critically high 0.55-1.02 [facility] Comment on above: Performed By: #### C MP ####[facility] Gowfoibume8[address] [place] [phone]. Airam Tripathi EGFR-AF ROMANIAN 52 mL/min/1.73m2 Critically low >=60 [facility] Comment on above: Performed By: #### C MP ####[facility] Jnuxqrwqzr4875 [place] [address]Dr. Airam Tripathi EGFR-NON AF ROMANIAN 43 mL/min/1.73m2 Critically low >=60 [facility] Comment on above: Performed By: #### C MP ####[facility] Apvrjhiigt9149 [place] [phone]. Airam Tripathi Globulin (S) [Mass/Vol] 3.3 g/dL Normal [facility] Comment on above: Performed By: #### C MP ####[facility] Gxhapxsizp3764 [place] [phone]. Airam Tripathi Glucose [Mass/Vol] 90 mg/dL Normal 74-106 [facility] Comment on above: Performed By: #### C MP ####[facility] Wgpjdyixpr2395 [place] [phone]. Airam Tripathi Potassium [Moles/Vol] 5.1 mmol/L Normal 3.5-5.1 [facility] Comment on above: Performed By: #### C MP ####[facility] Fskhxosbqu3802 [place] [phone]. Aiarm Tripathi Protein [Mass/Vol] 6.4 g/dL Normal 6.4-8.2 [facility] Comment on above: Performed By: #### C MP ####[facility] Otirfmckwq1706 [place] [phone]. Airam Tripathi Sodium [Moles/Vol] 134 mmol/L Critically low 136-145 [facility] Comment on above: Performed By: #### C MP ####[facility] Aicodgglgm8391 [place] [address]Dr. Airam Deuce Urea nitrogen [Mass/Vol] 33.0 mg/dL Critically high 7.0-18.0 [facility] Comment on above: Performed By: #### C MP ####[facility] Qivaglcvxg200[address] [place], [place] [address]Dr. Airam Tripathi Urea nitrogen/Creatinine [Mass ratio] 26.0 mg/mg Normal [facility] Comment on above: Performed By: #### C MP ####[facility] Brigdwuubv615[address] [place], [place] [address]Dr. Selenaneil Deuce OSMOLALITYon 10-15-2022 Osmolality [Osmolality] 272 mosm/kg Critically low 275-295 [facility] Comment on above: Performed By: #### O SMO ####[facility] Nvjpgmmjes59[address] [place], [place] [address]Dr. Airam Tripathi 36on 10-12-2022 36 Can you get the henry ining labs please Normal [facility] 36 [facility] lab called to re port critical BNP of 1,337. FYI Normal [facility] BNPon 10-12-2022 Natriuretic peptide B (Bld) [Mass/Vol] 1337.0 pg/mL Critically high <=900.0 [facility] Comment on above: Performed By: #### B COMMERCIAL LOAN OFFICER ####[facility] Glmiqsjtuh[address] [place], [place] [address]Dr. Airam Deuce CBC AUTO DIFFon 10-12-2022 BASO # 0.0 103/ul Normal 0.0-0.1 [facility] Comment on above: Performed By: #### C BC ####[facility] Gskxthfdhs[address] [place], [place] [address]Dr. Airam Tripathi Basophils/100 WBC (Bld) 0.6 % Normal 0.2-2.0 [facility] Comment on above: Performed By: #### C BC ####[facility] Zuoioauppx7353 [place] [phone]. Airam Tripathi EO # 0.2 103/ul Normal 0.0-0.7 [facility] Comment on above: Performed By: #### C BC ####[facility] Qvtgyatqki3163 [place] [address]Dr. Airam Tripathi Eosinophils/100 WBC (Bld) 2.3 % Normal 0.9-7.0 [facility] Comment on above: Performed By: #### C BC ####[facility] Dpapskoiok[address] [place], [place] [address]Dr. Airam Triapthi Erythrocyte distribution width (RBC) [Ratio] 15.1 % Critically high 11.0-15.0 [facility] Comment on above: Performed By: #### C BC ####[facility] Hhhoaadgsx078[address] [place], [place] [address]Dr. Airam Tripathi Hematocrit (Bld) [Volume fraction] 35.9 % Critically low 36.0-48.0 [facility] Comment on above: Performed By: #### C BC ####[facility] Trvtldiwdr414[address] [place], [place] [address]Dr. Airam Tripathi Hemoglobin (Bld) [Mass/Vol] 11.4 g/dL Critically low 12.0-16.0 [facility] Comment on above: Performed By: #### C BC ####[facility] Ktuvidmuys595[address] [place], [place] [address]Dr. Airam Tripathi IG # 0.03 10e3/ul Normal 0.00-0.03 [facility] Comment on above: Performed By: #### C BC ####[facility] Dbvlooqwkw588[address] [place], [place] [address]Dr. Selenaneil Tripathi IG % 0.5 % Normal 0.0-0.5 [facility] Comment on above: Performed By: #### C BC ####[facility] Aldlqpoqrv560[address] [place], [place] [address]Dr. Airam Tripathi LYMPH # 1.1 103/ul Critically low 1.2-3.8 [facility] Comment on above: Performed By: #### C BC ####[facility] Ytmekdwbwg[address] [place] [id number]. Selenaneil Tripathi Lymphocytes/100 WBC (Bld) 17.2 % Critically low 20.5-60.0 [facility] Comment on above: Performed By: #### C BC ####[facility] Ttbydduwma30[address] [place] [address]Dr. Airam Tripathi MANUAL DIFF REQ NO Normal [facility] Comment on above: Performed By: #### C BC ####[facility] Sxyinumzpm3423 [place] [phone]. Airam Tripathi MCH (RBC) [Entitic mass] 28.8 pg Normal 26.7-34.0 [facility] Comment on above: Performed By: #### C BC ####[facility] Ewghxwkiil776[address] [place], [place] [address]Dr. Airam Tripathi MCHC (RBC) [Mass/Vol] 31.8 g/dL Normal 29.9-35.2 [facility] Comment on above: Performed By: #### C BC ####[facility] Usdtqncone855[address] [place], [place] [address]Dr. Airam Tripathi MCV (RBC) [Entitic vol] 90.7 fL Normal 81.0-99.0 [facility] Comment on above: Performed By: #### C BC ####[facility] Tsuicwhlfj17[address] [place], [place] [address]Dr. Airam Tripathi MONO # 0.5 103/ul Normal 0.3-0.8 [facility] Comment on above: Performed By: #### C BC ####[facility] Kxgiqikweh240[address] [place], [place] [address]Dr. Airam Tripathi Monocytes/100 WBC (Bld) 7.7 % Normal 1.7-12.0 [facility] Comment on above: Performed By: #### C BC ####[facility] Dbayxdyphw415[address] [place], [place] [address]Dr. Airam Tripathi NEUT # 4.7 103/ul Normal 1.4-6.5 [facility] Comment on above: Performed By: #### C BC ####[facility] Dghehwmsyb0940 [place] [phone]. Airam Tripathi Neutrophils/100 WBC (Bld) 71.7 % Normal 43.0-75.0 [facility] Comment on above: Performed By: #### C BC ####[facility] Ueazcdkgml7526 [place] [phone]. Airam Tripathi Platelet mean volume (Bld) [Entitic vol] 8.2 fL Critically low 9.5-13.5 [facility] Comment on above: Performed By: #### C BC ####[facility] Voysjaahag[address] [place] [address]Dr. Airam Tripathi PLT 292 103/ul Normal 150-450 [facility] Comment on above: Performed By: #### C BC ####[facility] Xxidsvvgpa0890 [place] [address]Dr. Airam Tripathi RBC 3.96 106/ul Critically low 4.20-5.40 [facility] Comment on above: Performed By: #### C BC ####[facility] Nqfgksdovy85[address] [place] [address]Dr. Airam Tripathi WBC 6.6 103/ul Normal 4.0-11.0 [facility] Comment on above: Performed By: #### C BC ####[facility] Xgghhtvsdy2932 [place] [address]DrKianna Tripathi PROF 14(COMP METB)on 023 Albumin [Mass/Vol] 3.3 g/dL Critically low 3.4-5.0 [facility] Comment on above: Performed By: #### C MP ####[facility] Mzbsmmarpk4994 [place] [address]DrKianna Tripathi Albumin/Globulin [Mass ratio] 0.9 {ratio} Normal [facility] Comment on above: Performed By: #### C MP ####[facility] Tllaqxxyfd8602 [place] [address]DrKianna Tripathi ALP [Catalytic activity/Vol] 130 U/L Critically high 46-116 [facility] Comment on above: Performed By: #### C MP ####[facility] Bzanegivio2049 [place] [phone]. Airam Tripathi ALT [Catalytic activity/Vol] 23 U/L Normal 14-59 [facility] Comment on above: Performed By: #### C MP ####[facility] Ckivmnzloo2168 [place] [phone]. Airam Tripathi Anion gap [Moles/Vol] 11.7 mmol/L Normal [facility] Comment on above: Performed By: #### C MP ####[facility] Zukfypnrgs4324 [place] [address]Dr. Airam Tripathi AST [Catalytic activity/Vol] 23 U/L Normal 15-37 [facility] Comment on above: Performed By: #### C MP ####[facility] Ppqjpdoafr456[address] [place], [place] [address]Dr. Airam Deuce Bilirubin [Mass/Vol] 0.3 mg/dL Normal 0.2-1.0 [facility] Comment on above: Performed By: #### C MP ####[facility] Ozcqnbplnn36[address] [place], [place] [address]Dr. Airam Deuce Calcium [Mass/Vol] 8.7 mg/dL Normal 8.5-10.1 [facility] Comment on above: Performed By: #### C MP ####[facility] Yvvdcmtwxr0114[address] [place], [place] [address]Dr. Airam Deuce Chloride [Moles/Vol] 99 mmol/L Normal 98-107 [facility] Comment on above: Performed By: #### C MP ####[facility] Ogarncxxhm6[address] [place], [place] [address]Dr. Airam Tripathi CO2 [Moles/Vol] 28.5 mmol/L Normal 21.0-32.0 [facility] Comment on above: Performed By: #### C MP ####[facility] Htgpxfklby606[address] [place], [place] [address]Dr. Airam Tripathi Creatinine [Mass/Vol] 1.06 mg/dL Critically high 0.55-1.02 [facility] Comment on above: Performed By: #### C MP ####[facility] Mcoshwmkhf9396 [place] [phone]. Airam Tripathi EGFR-AF ROMANIAN >60 Normal >=60 [facility] Comment on above: Performed By: #### C MP ####[facility] Yjklmkfkme0253 [place] [phone]. Airam Tripathi EGFR-NON AF ROMANIAN 53 mL/min/1.73m2 Critically low >=60 [facility] Comment on above: Performed By: #### C MP ####[facility] Udbjfmdynw7918 [place] [phone]. Airam Tripathi Globulin (S) [Mass/Vol] 3.5 g/dL Normal [facility] Comment on above: Performed By: #### C MP ####[facility] Gxwazrfelw6616 [place] [address]Dr. Airam Tripathi Glucose [Mass/Vol] 79 mg/dL Normal 74-106 [facility] Comment on above: Performed By: #### C MP ####[facility] Wiyllwxlen6419 [place] [phone]. Airam Tripathi Potassium [Moles/Vol] 4.2 mmol/L Normal 3.5-5.1 [facility] Comment on above: Performed By: #### C MP ####[facility] Zncteghreu2930 [place] [phone]. Airam Tripathi Protein [Mass/Vol] 6.8 g/dL Normal 6.4-8.2 [facility] Comment on above: Performed By: #### C MP ####[facility] Yxblqzvnih8548 [place] [phone]. Airam Tripathi Sodium [Moles/Vol] 135 mmol/L Critically low 136-145 [facility] Comment on above: Performed By: #### C MP ####[facility] Ennskbjijo1691 [place] [address]Dr. Airam Tripathi Urea nitrogen [Mass/Vol] 16.0 mg/dL Normal 7.0-18.0 [facility] Comment on above: Performed By: #### C MP ####[facility] Qwzuimyonx0401 [place] [phone]. Airam Tripathi Urea nitrogen/Creatinine [Mass ratio] 15.1 mg/mg Normal [facility] Comment on above: Performed By: #### C MP ####[facility] Ymavteocey2243 [place] [phone]. Airam Tripathi XR CHEST 1 Von 10-12-2022 XR CHEST 1 V Normal [facility] Office Visiton 10-10-2022 Follow-up visit [id number] Loren Moser 1960 F Date Provider Department Center 10/10/2022 ZANDRA NASH CARD [facility] No family history on file Level of Service:43144 LA OFFICE/OUTPATIENT ESTABLISHED MOD MDM 30-39 MIN Reason for Visit and Comments: Congestive Heart Failure [127] Re-establish care [Other] Normal [facility] PRBC LEUKOREDUCEDon 10-10-19 23 PRBC LEUKOREDUCED Normal [facility] Comment on above: Performed By: #### P RBC ####[facility] Bodiybrkdp[address] [place] [address]Dr. Airam Deuce CULTURE URINEon 10-08-2022 CULTURE URINE Normal [facility] Comment on above: Performed By: #### U RCX ####[facility] Iocsiokofn40[address] [place] [address]Dr. Airam Tripathi OSMOLALITYon 10-08-2022 Osmolality [Osmolality] 282 mosm/kg Normal 275-295 [facility] Comment on above: Performed By: #### O SMO ####[facility] Uozqtojrox76[address] [place] [phone]. Airam Deuce CBC AUTO DIFFon 10-07-2022 BASO # 0.0 103/ul Normal 0.0-0.1 [facility] Comment on above: Performed By: #### C BC ####[facility] Dayjfvpklu0427 [place] [phone]. Airam Tripathi Basophils/100 WBC (Bld) 0.3 % Normal 0.2-2.0 [facility] Comment on above: Performed By: #### C BC ####[facility] Ihxwkkekqm6428 [place] [phone]. Airam Tripathi EO # 0.2 103/ul Normal 0.0-0.7 [facility] Comment on above: Performed By: #### C BC ####[facility] Ueygcxvynl7414 [place] [phone]. Airam Tripathi Eosinophils/100 WBC (Bld) 3.4 % Normal 0.9-7.0 [facility] Comment on above: Performed By: #### C BC ####[facility] Dnykmxgacu196[address] [place], [place] [address]Dr. Airam Tripathi Erythrocyte distribution width (RBC) [Ratio] 15.2 % Critically high 11.0-15.0 [facility] Comment on above: Performed By: #### C BC ####[facility] Pxhrfwvxcm27[address] [place], [place] [address]Dr. Airam Tripathi Hematocrit (Bld) [Volume fraction] 31.3 % Critically low 36.0-48.0 [facility] Comment on above: Performed By: #### C BC ####[facility] Jubyzwjmae136[address] [place], [place] [address]Dr. Airam Tripathi Hemoglobin (Bld) [Mass/Vol] 9.9 g/dL Critically low 12.0-16.0 [facility] Comment on above: Performed By: #### C BC ####[facility] Tacnvducmo324[address] [place], [place] [address]Dr. Airam Tripathi IG # 0.03 10e3/ul Normal 0.00-0.03 [facility] Comment on above: Performed By: #### C BC ####[facility] Kxtkgcsdyf666[address] [place], [place] [address]Dr. Airam Tripathi IG % 0.4 % Normal 0.0-0.5 [facility] Comment on above: Performed By: #### C BC ####[facility] Btkutraqvm808[address] [place], [place] [address]Dr. Airam Tripathi LYMPH # 1.3 103/ul Normal 1.2-3.8 [facility] Comment on above: Performed By: #### C BC ####[facility] Alppkuvcaf2265 [place] [phone]. Airam Tripathi Lymphocytes/100 WBC (Bld) 19.0 % Critically low 20.5-60.0 [facility] Comment on above: Performed By: #### C BC ####[facility] Makegailbr9398 [place] [phone]. Airam Deuce MANUAL DIFF REQ NO Normal [facility] Comment on above: Performed By: #### C BC ####[facility] Uhyuthqfos[address] [place], [place] [address]Dr. Airam Deuce MCH (RBC) [Entitic mass] 28.1 pg Normal 26.7-34.0 [facility] Comment on above: Performed By: #### C BC ####[facility] Vebxgvgoqq218[address] [place], [place] [address]Dr. Airam Deuce MCHC (RBC) [Mass/Vol] 31.6 g/dL Normal 29.9-35.2 [facility] Comment on above: Performed By: #### C BC ####[facility] Hxraqgukxm130[address] [place], [place] [address]Dr. Airam Deuce MCV (RBC) [Entitic vol] 88.9 fL Normal 81.0-99.0 [facility] Comment on above: Performed By: #### C BC ####[facility] Lswgkdocns[address] [place], [place] [address]Dr. Airam Deuce MONO # 0.6 103/ul Normal 0.3-0.8 [facility] Comment on above: Performed By: #### C BC ####[facility] Xyqnmfdozc195[address] [place], [place] [address]Dr. Airam Deuce Monocytes/100 WBC (Bld) 9.0 % Normal 1.7-12.0 [facility] Comment on above: Performed By: #### C BC ####[facility] Qgfvgvlaji406[address] [place], [place] [address]Dr. Airam Tripathi NEUT # 4.5 103/ul Normal 1.4-6.5 [facility] Comment on above: Performed By: #### C BC ####[facility] Wggkcsviin5403 [place] [phone]. Airam Tripathi Neutrophils/100 WBC (Bld) 67.9 % Normal 43.0-75.0 [facility] Comment on above: Performed By: #### C BC ####[facility] Plmyteujyx4195 [place] [phone]. Airam Tripathi Platelet mean volume (Bld) [Entitic vol] 9.1 fL Critically low 9.5-13.5 [facility] Comment on above: Performed By: #### C BC ####[facility] Klueznpcgt6808 [place] [address]Dr. Airam Tripathi PLT 256 103/ul Normal 150-450 [facility] Comment on above: Performed By: #### C BC ####[facility] Fmpwapbuua2218 [place] [address]Dr. Airam Tripathi RBC 3.52 106/ul Critically low 4.20-5.40 [facility] Comment on above: Performed By: #### C BC ####[facility] Jqmlzkqpdi6512 [place] [address]Dr. Airam Tripathi WBC 6.7 103/ul Normal 4.0-11.0 [facility] Comment on above: Performed By: #### C BC ####[facility] Vhiiosvkyb6936 [place] [address]Dr. Airam Tripathi PROF 14(COMP METB)on 023 Albumin [Mass/Vol] 2.8 g/dL Critically low 3.4-5.0 [facility] Comment on above: Performed By: #### C MP ####[facility] Bibfptrxcf5702 [place] [address]Dr. Airam Tripathi Albumin/Globulin [Mass ratio] 0.9 {ratio} Normal [facility] Comment on above: Performed By: #### C MP ####[facility] Cvszfqlfbl1999 [place] [address]Dr. Airam Tripathi ALP [Catalytic activity/Vol] 118 U/L Critically high 46-116 [facility] Comment on above: Performed By: #### C MP ####[facility] Vnkqtjipqv7910 [place] [phone]. Airam Tripathi ALT [Catalytic activity/Vol] 23 U/L Normal 14-59 [facility] Comment on above: Performed By: #### C MP ####[facility] Coruibfphp8927 [place] [phone]. Airam Tripathi Anion gap [Moles/Vol] 12.5 mmol/L Normal [facility] Comment on above: Performed By: #### C MP ####[facility] Jldkoabkso9939 [place] [phone]. Airam Tripathi AST [Catalytic activity/Vol] 21 U/L Normal 15-37 [facility] Comment on above: Performed By: #### C MP ####[facility] Ydhbyxrlqs8[address] [place], [place] [address]Dr. Airam Tripathi Bilirubin [Mass/Vol] 0.4 mg/dL Normal 0.2-1.0 [facility] Comment on above: Performed By: #### C MP ####[facility] Ipguvmuwvm2960 [place] [address]Dr. Airam Tripathi Calcium [Mass/Vol] 8.2 mg/dL Critically low 8.5-10.1 [facility] Comment on above: Performed By: #### C MP ####[facility] Vyrfmbczzo2865 [place] [address]Dr. Airam Tripathi Chloride [Moles/Vol] 99 mmol/L Normal 98-107 [facility] Comment on above: Performed By: #### C MP ####[facility] Iiwbceznmi4103 [place] [phone]. Airam Tripathi CO2 [Moles/Vol] 24.9 mmol/L Normal 21.0-32.0 [facility] Comment on above: Performed By: #### C MP ####[facility] Lbukqawazx007[address] [place], [place] [address]Dr. Airam Tripathi Creatinine [Mass/Vol] 1.61 mg/dL Critically high 0.55-1.02 [facility] Comment on above: Performed By: #### C MP ####[facility] Xhfbletmda1680 [place] [phone]. Airam Tripathi EGFR-AF ROMANIAN 40 mL/min/1.73m2 Critically low >=60 [facility] Comment on above: Performed By: #### C MP ####[facility] Ihbloyajic0543 [place] [phone]. Airam Tripathi EGFR-NON AF ROMANIAN 33 mL/min/1.73m2 Critically low >=60 [facility] Comment on above: Performed By: #### C MP ####[facility] Zsfxveawzb2925 [place] [phone]. Airam Tripathi Globulin (S) [Mass/Vol] 3.2 g/dL Normal [facility] Comment on above: Performed By: #### C MP ####[facility] Jspvoogibv0153 [place] [address]Dr. Selenaneil Tripathi Glucose [Mass/Vol] 67 mg/dL Critically low 74-106 [facility] Comment on above: Performed By: #### C MP ####[facility] Mycpfujzrm7492 [place] [address]Dr. Airam Tripathi Potassium [Moles/Vol] 5.4 mmol/L Critically high 3.5-5.1 [facility] Comment on above: Performed By: #### C MP ####[facility] Evfpaedqmw44[address] [place], [place] [address]Dr. Airam Tripathi Protein [Mass/Vol] 6.0 g/dL Critically low 6.4-8.2 [facility] Comment on above: Performed By: #### C MP ####[facility] Fmiqnsbvwj1095 [place] [address]Dr. Airam Tripathi Sodium [Moles/Vol] 131 mmol/L Critically low 136-145 [facility] Comment on above: Performed By: #### C MP ####[facility] Euwfknbmbj[address] [place], [place] [address]Dr. Selenaneil Tripathi Urea nitrogen [Mass/Vol] 43.0 mg/dL Critically high 7.0-18.0 [facility] Comment on above: Performed By: #### C MP ####[facility] Jcymzrydib3961 [place] [phone]. Airam Tripathi Urea nitrogen/Creatinine [Mass ratio] 26.7 mg/mg Normal [facility] Comment on above: Performed By: #### C MP ####[facility] Nunllhyefs5158 [place] [phone]. Airam Deuce CBC AUTO DIFFon 10-06-2022 BASO # 0.0 103/ul Normal 0.0-0.1 [facility] Comment on above: Performed By: #### C BC ####[facility] Yhfnvshaya109[address] [place], [place] [address]Dr. Selenaneil Tripathi Basophils/100 WBC (Bld) 0.3 % Normal 0.2-2.0 [facility] Comment on above: Performed By: #### C BC ####[facility] Qeemzyesmo69[address] [place], [place] [address]Dr. Airam Tripathi EO # 0.2 103/ul Normal 0.0-0.7 [facility] Comment on above: Performed By: #### C BC ####[facility] Oyikihmxlb24[address] [place], [place] [address]Dr. Selenaneil Tripathi Eosinophils/100 WBC (Bld) 3.1 % Normal 0.9-7.0 [facility] Comment on above: Performed By: #### C BC ####[facility] Fkfvtocxfl204[address] [place], [place] [address]Dr. Airam Deuce Erythrocyte distribution width (RBC) [Ratio] 15.0 % Normal 11.0-15.0 [facility] Comment on above: Performed By: #### C BC ####[facility] Cfipbmkdwh098[address] [place], [place] [address]Dr. Airam Deuce Hematocrit (Bld) [Volume fraction] 30.9 % Critically low 36.0-48.0 [facility] Comment on above: Performed By: #### C BC ####[facility] Hdmtuakmqv544[address] [place], [place] [address]Dr. Selenaneil Tripathi Hemoglobin (Bld) [Mass/Vol] 10.1 g/dL Critically low 12.0-16.0 [facility] Comment on above: Result Comment: BIJU ENT RECIEVED 2 UNITS PRBC'S Performed By: #### C BC ####[facility] Wntaiuuyyn3232 [place] [address]DrKianna Triptahi IG # 0.03 10e3/ul Normal 0.00-0.03 [facility] Comment on above: Performed By: #### C BC ####[facility] Fcypshckrp7144 [place] [address]DrKianna Tripathi IG % 0.4 % Normal 0.0-0.5 [facility] Comment on above: Performed By: #### C BC ####[facility] Kdrdzanrjz95[address] [place], [place] [address]DrKianna Tripathi LYMPH # 1.1 103/ul Critically low 1.2-3.8 [facility] Comment on above: Performed By: #### C BC ####[facility] Yijhgzzupy913[address] [place], [place] [address]DrKianna Tripathi Lymphocytes/100 WBC (Bld) 14.4 % Critically low 20.5-60.0 [facility] Comment on above: Performed By: #### C BC ####[facility] Qofkyiycmp340[address] [place], [place] [address]DrKianna Tripathi MANUAL DIFF REQ NO Normal [facility] Comment on above: Performed By: #### C BC ####[facility] Fjvhruhdns055[address] [place], [place] [address]DrKianna Tripathi MCH (RBC) [Entitic mass] 28.9 pg Normal 26.7-34.0 [facility] Comment on above: Performed By: #### C BC ####[facility] Lolqzmivse509[address] [place], [place] [address]DrKianna Tripathi MCHC (RBC) [Mass/Vol] 32.7 g/dL Normal 29.9-35.2 [facility] Comment on above: Performed By: #### C BC ####[facility] Ugcpssbfur868[address] [place], [place] [address]DrKianna Tripathi MCV (RBC) [Entitic vol] 88.3 fL Normal 81.0-99.0 [facility] Comment on above: Performed By: #### C BC ####[facility] Aziwxxqagr9531 [place] [address]DrKianna Airam Tripathi MONO # 0.6 103/ul Normal 0.3-0.8 [facility] Comment on above: Performed By: #### C BC ####[facility] Jxftwjmwud559[address] [place], [place] [address]DrKianna Tripathi Monocytes/100 WBC (Bld) 7.8 % Normal 1.7-12.0 [facility] Comment on above: Performed By: #### C BC ####[facility] Enhaujpkej503[address] [place], [place] [address]DrKianna Airam Tripathi NEUT # 5.5 103/ul Normal 1.4-6.5 [facility] Comment on above: Performed By: #### C BC ####[facility] Xjghjiksbd134607 [address] [place], [place] [address]DrKianna Tripathi Neutrophils/100 WBC (Bld) 74.0 % Normal 43.0-75.0 [facility] Comment on above: Performed By: #### C BC ####[facility] Lctoiupwdp63[address] [place], [place] [address]DrKianna Selenaneil Tripathi Platelet mean volume (Bld) [Entitic vol] 9.2 fL Critically low 9.5-13.5 [facility] Comment on above: Performed By: #### C BC ####[facility] Ewajyfzvuj974[address] [place], [place] [address]DrKianna Tripathi PLT 275 103/ul Normal 150-450 [facility] Comment on above: Performed By: #### C BC ####[facility] Ltbtkkcayn[address] [place], [place] [address]DrKianna Tripathi RBC 3.50 106/ul Critically low 4.20-5.40 [facility] Comment on above: Performed By: #### C BC ####[facility] Hnexxsvxyw9[address] [place], [place] [address]DrKianna Tripathi WBC 7.4 103/ul Normal 4.0-11.0 [facility] Comment on above: Performed By: #### C BC ####[facility] Ijivytncxn[address] [place], [place] [address]Dr. Airam Deuce BASO # 0.0 103/ul Normal 0.0-0.1 [facility] Comment on above: Performed By: #### C BC ####[facility] Jvlosldbbv883[address] [place], [place] [address]Dr. Airam Tripathi Basophils/100 WBC (Bld) 0.4 % Normal 0.2-2.0 [facility] Comment on above: Performed By: #### C BC ####[facility] Wbgszdqegm697[address] [place], [place] [address]Dr. Airam Tripathi EO # 0.2 103/ul Normal 0.0-0.7 [facility] Comment on above: Performed By: #### C BC ####[facility] Apxyqqwxqv866[address] [place], [place] [address]Dr. Airam Tripahti Eosinophils/100 WBC (Bld) 4.5 % Normal 0.9-7.0 [facility] Comment on above: Performed By: #### C BC ####[facility] Foasyhjrvz33[address] [place], [place] [address]Dr. Airam Tripathi Erythrocyte distribution width (RBC) [Ratio] 15.1 % Critically high 11.0-15.0 [facility] Comment on above: Performed By: #### C BC ####[facility] Gsnobavvzu[address] [place] [address]Dr. Airam Tripathi Hematocrit (Bld) [Volume fraction] 23.0 % Critically low 36.0-48.0 [facility] Comment on above: Performed By: #### C BC ####[facility] Ilkycriucp[address] [place], [place] [address]Dr. Airam Tripathi Hemoglobin (Bld) [Mass/Vol] 7.2 g/dL Critically low 12.0-16.0 [facility] Comment on above: Performed By: #### C BC ####[facility] Trmqmcrffs[address] [place], [place] [address]Dr. Airam Tripathi IG # 0.02 10e3/ul Normal 0.00-0.03 [facility] Comment on above: Performed By: #### C BC ####[facility] [address] [place] [address]Dr. Airam Tripathi IG % 0.4 % Normal 0.0-0.5 [facility] Comment on above: Performed By: #### C BC ####[facility] Udckvxnluj59[address] [place] [address]DrKianna Airam Deuce LYMPH # 1.0 103/ul Critically low 1.2-3.8 [facility] Comment on above: Performed By: #### C BC ####[facility] Ebpinijxcg7972 [place] [address]DrKianna Airam Deuce Lymphocytes/100 WBC (Bld) 22.5 % Normal 20.5-60.0 [facility] Comment on above: Performed By: #### C BC ####[facility] Axbcgckhiy106[address] [place], [place] [address]Dr. Airam Deuce MANUAL DIFF REQ NO Normal [facility] Comment on above: Performed By: #### C BC ####[facility] Fkdnawhezh[address] [place], [place] [address]Dr. Airam Deuce MCH (RBC) [Entitic mass] 28.3 pg Normal 26.7-34.0 [facility] Comment on above: Performed By: #### C BC ####[facility] Srlddgcmjh407[address] [place], [place] [address]Dr. Airam Deuce MCHC (RBC) [Mass/Vol] 31.3 g/dL Normal 29.9-35.2 [facility] Comment on above: Performed By: #### C BC ####[facility] Fboxozpjyq516[address] [place], [place] [address]DrKianna Airam Deuce MCV (RBC) [Entitic vol] 90.6 fL Normal 81.0-99.0 [facility] Comment on above: Performed By: #### C BC ####[facility] Ifdhlkxfrp9[address] [place], [place] [address]DrKianna Selenaneil Tripathi MONO # 0.5 103/ul Normal 0.3-0.8 [facility] Comment on above: Performed By: #### C BC ####[facility] [address]zjp4[address] [place] [address]Dr. Airam Tripathi Monocytes/100 WBC (Bld) 9.7 % Normal 1.7-12.0 [facility] Comment on above: Performed By: #### C BC ####[facility] Gfruouhwcy57[address] [place] [address]Dr. Airam Tripathi NEUT # 2.9 103/ul Normal 1.4-6.5 [facility] Comment on above: Performed By: #### C BC ####[facility] Sunwsjkykj4775 [place] [address]Dr. Airam Tripathi Neutrophils/100 WBC (Bld) 62.5 % Normal 43.0-75.0 [facility] Comment on above: Performed By: #### C BC ####[facility] Zdrfclxvlm4472 [place] [address]Dr. Airam Tripathi Platelet mean volume (Bld) [Entitic vol] 8.9 fL Critically low 9.5-13.5 [facility] Comment on above: Performed By: #### C BC ####[facility] Zuhfbtizyx238[address] [place], [place] [address]Dr. Airam Tirpathi PLT 210 103/ul Normal 150-450 [facility] Comment on above: Performed By: #### C BC ####[facility] Cwihwjjtam18[address] [place] [address]Dr. Ariam Tripathi RBC 2.54 106/ul Critically low 4.20-5.40 [facility] Comment on above: Performed By: #### C BC ####[facility] Wxartuaonu1224 [place] [address]Dr. Airam Tripathi WBC 4.6 103/ul Normal 4.0-11.0 [facility] Comment on above: Performed By: #### C BC ####[facility] Goiocmjsjr8838 [place] [address]Dr. Airam Tripathi OSMOLALITYon 10-06-2022 Osmolality [Osmolality] 279 mosm/kg Normal 275-295 [facility] Comment on above: Performed By: #### O SMO ####[facility] Jrvdtirezh9924 [place] [address]Dr. Airam Tripathi POINT OF CARE GLUCOSEon 09-24 Glucose [Mass/Vol] 72 mg/dL Critically low 74-106 [facility] Comment on above: Performed By: #### P OCGLUC ####[facility] Bchpnzrytq90[address] [place] [address]Dr. Airam Tripathi Glucose [Mass/Vol] 102 mg/dL Normal 74-106 [facility] Comment on above: Performed By: #### P OCGLUC ####[facility] Ydgbjhfeld6756 [place] [address]Dr. Ariam Tripathi Glucose [Mass/Vol] 165 mg/dL Critically high 74-106 [facility] Comment on above: Performed By: #### P OCGLUC ####[facility] Htdsdgigvx2599 [place] [address]Dr. Airam Tripathi PROF 14(COMP METB)on 023 Albumin [Mass/Vol] 2.6 g/dL Critically low 3.4-5.0 [facility] Comment on above: Performed By: #### C MP ####[facility] Owgkvybtvx888[address] [place], [place] [address]Dr. Airam Tripathi Albumin/Globulin [Mass ratio] 0.9 {ratio} Normal [facility] Comment on above: Performed By: #### C MP ####[facility] Jtjiczmbjm5740 [place] [address]Dr. Airam Tripathi ALP [Catalytic activity/Vol] 107 U/L Normal 46-116 [facility] Comment on above: Performed By: #### C MP ####[facility] Zwyaodlowa[address] [place], [place] [address]Dr. Airam Tripathi ALT [Catalytic activity/Vol] 22 U/L Normal 14-59 [facility] Comment on above: Performed By: #### C MP ####[facility] Kwmcvwuxln739[address] [place], [place] [address]Dr. Airam Tripathi Anion gap [Moles/Vol] 10.0 mmol/L Normal [facility] Comment on above: Performed By: #### C MP ####[facility] Nzolqvxbwk3933 [place] [address]Dr. Airam Tripathi AST [Catalytic activity/Vol] 19 U/L Normal 15-37 [facility] Comment on above: Performed By: #### C MP ####[facility] Otlykxssju333[address] [place], [place] [address]Dr. Airam Deuce Bilirubin [Mass/Vol] 0.2 mg/dL Normal 0.2-1.0 [facility] Comment on above: Performed By: #### C MP ####[facility] Obxocoxhyh275[address] [place], [place] [address]Dr. Airam Tripathi Calcium [Mass/Vol] 8.1 mg/dL Critically low 8.5-10.1 [facility] Comment on above: Performed By: #### C MP ####[facility] Kipskmbxmj737[address] [place], [place] [address]Dr. Airam Tripathi Chloride [Moles/Vol] 100 mmol/L Normal 98-107 [facility] Comment on above: Performed By: #### C MP ####[facility] Sfqnsvhfij944[address] [place], [place] [address]Dr. Airam Deuce CO2 [Moles/Vol] 26.2 mmol/L Normal 21.0-32.0 [facility] Comment on above: Performed By: #### C MP ####[facility] Wobrjqccli425[address] [place], [place] [address]Dr. Airam Tripathi Creatinine [Mass/Vol] 1.90 mg/dL Critically high 0.55-1.02 [facility] Comment on above: Performed By: #### C MP ####[facility] Rhtihsauil716407 [address] [place], [place] [address]Dr. Airam Tripathi EGFR-AF ROMANIAN 33 mL/min/1.73m2 Critically low >=60 [facility] Comment on above: Performed By: #### C MP ####[facility] Edqcppqwnm56260[address] [place], [place] [address]Dr. Airam Tripathi EGFR-NON AF ROMANIAN 27 mL/min/1.73m2 Critically low >=60 [facility] Comment on above: Performed By: #### C MP ####[facility] Nowwiaiebc1917 [place] [address]Dr. Airam Tripathi Globulin (S) [Mass/Vol] 2.8 g/dL Normal [facility] Comment on above: Performed By: #### C MP ####[facility] Ioamtthujb5961 [place] [address]Dr. Airam Tripathi Glucose [Mass/Vol] 115 mg/dL Critically high 74-106 [facility] Comment on above: Performed By: #### C MP ####[facility] Kwgxdrssrs5139 [place] [address]Dr. Airam Tripathi Potassium [Moles/Vol] 5.2 mmol/L Critically high 3.5-5.1 [facility] Comment on above: Performed By: #### C MP ####[facility] Nbmrjgmopz715[address] [place], [place] [address]Dr. Airam Tripathi Protein [Mass/Vol] 5.4 g/dL Critically low 6.4-8.2 [facility] Comment on above: Performed By: #### C MP ####[facility] Fttbdnumvd982[address] [place], [place] [address]Dr. Airam Tripathi Sodium [Moles/Vol] 131 mmol/L Critically low 136-145 [facility] Comment on above: Performed By: #### C MP ####[facility] Olgmdpemcl013607 [address] [place], [place] [address]Dr. Airam Tripathi Urea nitrogen [Mass/Vol] 41.0 mg/dL Critically high 7.0-18.0 [facility] Comment on above: Performed By: #### C MP ####[facility] Jcwgmxsrzs763[address] [place], [place] [address]Dr. Airam Tripathi Urea nitrogen/Creatinine [Mass ratio] 21.6 mg/mg Normal [facility] Comment on above: Performed By: #### C MP ####[facility] Issyekvdls23350[address] [place], [place] [address]Dr. Airam Tripathi TYPE AND SCREENon 10-06-2022 TYPE AND SCREEN Negative Normal [facility] Comment on above: Performed By: #### T NS ####[facility] Soxmmmvqjn057807 [address] [place], [place] [address]Dr. Airam Tripathi CBC AUTO DIFFon 10-05-2022 BASO # 0.0 103/ul Normal 0.0-0.1 [facility] Comment on above: Performed By: #### C BC ####[facility] Iqjbqpolem6429[address] [place], [place] [address]Dr. Airam Deuce Basophils/100 WBC (Bld) 0.5 % Normal 0.2-2.0 [facility] Comment on above: Performed By: #### C BC ####[facility] Tfqwdwesyc5539[address] [place], [place] [address]Dr. Airam Tripathi EO # 0.2 103/ul Normal 0.0-0.7 [facility] Comment on above: Performed By: #### C BC ####[facility] Nhdfemmeyy317[address] [place], [place] [address]Dr. Airam Deuce Eosinophils/100 WBC (Bld) 3.2 % Normal 0.9-7.0 [facility] Comment on above: Performed By: #### C BC ####[facility] Gcvlqfpzdd5213[address] [place], [place] [address]Dr. Airam Tripathi Erythrocyte distribution width (RBC) [Ratio] 15.2 % Critically high 11.0-15.0 [facility] Comment on above: Performed By: #### C BC ####[facility] Dcjedocvry328[address] [place], [place] [address]Dr. Airam Tripathi Hematocrit (Bld) [Volume fraction] 24.7 % Critically low 36.0-48.0 [facility] Comment on above: Performed By: #### C BC ####[facility] Dbcyddbeau569507 [address] [place], [place] [address]Dr. Airam Tripathi Hemoglobin (Bld) [Mass/Vol] 7.6 g/dL Critically low 12.0-16.0 [facility] Comment on above: Performed By: #### C BC ####[facility] Ysrrtkfinp2069 [place] [address]Dr. Airam Tripathi IG # 0.02 10e3/ul Normal 0.00-0.03 [facility] Comment on above: Performed By: #### C BC ####[facility] Mlvqgojqgf4727[address] [place], [place] [address]DrKianna Airam Deuce IG % 0.3 % Normal 0.0-0.5 [facility] Comment on above: Performed By: #### C BC ####[facility] Yfmuzebdtv24[address] [place], [place] [address]DrKianna Selenaneil Tripathi LYMPH # 1.1 103/ul Critically low 1.2-3.8 [facility] Comment on above: Performed By: #### C BC ####[facility] Ktzmwcenwh512[address] [place], [place] [address]DrKianna Selenaneil Tripathi Lymphocytes/100 WBC (Bld) 18.4 % Critically low 20.5-60.0 [facility] Comment on above: Performed By: #### C BC ####[facility] Ysrfdigibt385[address] [place], [place] [address]DrKianna Selenaneil Tripathi MANUAL DIFF REQ NO Normal [facility] Comment on above: Performed By: #### C BC ####[facility] Yayjsqazkq[address] [place], [place] [address]DrKianna Airam Deuce MCH (RBC) [Entitic mass] 28.5 pg Normal 26.7-34.0 [facility] Comment on above: Performed By: #### C BC ####[facility] Pvbaborcrr5927[address] [place], [place] [address]DrKianna Airam Deuce MCHC (RBC) [Mass/Vol] 30.8 g/dL Normal 29.9-35.2 [facility] Comment on above: Performed By: #### C BC ####[facility] Ksereftfmt168[address] [place], [place] [address]DrKianna Airam Deuce MCV (RBC) [Entitic vol] 92.5 fL Normal 81.0-99.0 [facility] Comment on above: Performed By: #### C BC ####[facility] Iewrrikjbt6939[address] [place], [place] [address]Dr. Airam Tripathi MONO # 0.6 103/ul Normal 0.3-0.8 [facility] Comment on above: Performed By: #### C BC ####[facility] Gzrglutibc5665 [place] [address]Dr. Airam Tripathi Monocytes/100 WBC (Bld) 10.0 % Normal 1.7-12.0 [facility] Comment on above: Performed By: #### C BC ####[facility] Bmkojzvtun0827 [place] [address]Dr. Airam Tripathi NEUT # 4.0 103/ul Normal 1.4-6.5 [facility] Comment on above: Performed By: #### C BC ####[facility] Sfdxzfoyoj1503 [place] [address]Dr. Airam Tripathi Neutrophils/100 WBC (Bld) 67.6 % Normal 43.0-75.0 [facility] Comment on above: Performed By: #### C BC ####[facility] Owstvnvhyb8570 [place] [address]Dr. Airam Tripathi Platelet mean volume (Bld) [Entitic vol] 8.8 fL Critically low 9.5-13.5 [facility] Comment on above: Performed By: #### C BC ####[facility] Tlsdvdiutf0617 [place] [address]Dr. Airam Tripathi PLT 226 103/ul Normal 150-450 [facility] Comment on above: Performed By: #### C BC ####[facility] Zguygfqful1139 [place] [address]Dr. Airam Tripathi RBC 2.67 106/ul Critically low 4.20-5.40 [facility] Comment on above: Performed By: #### C BC ####[facility] Jyotnfxfoj1153 [place] [address]Dr. Airam Tripathi WBC 5.9 103/ul Normal 4.0-11.0 [facility] Comment on above: Performed By: #### C BC ####[facility] Eozqxsjmod337[address] [place], [place] [address]Dr. Airam Tripathi Covid-19 PCR (CVDTBH)on 09-24 SARS-CoV-2 (COVID-19) RNA MIKE+probe Ql (Unsp spec) Not detected Normal NOT DETECTED [facility] Comment on above: Result Comment: When [...] for this test is supported by the Lapidary Apprentice of Health and Human Service's declaration that [...] be used). Performed By: #### C VDTBH ####[facility] Jamornlohc[address] [place], [place] [address]Dr. Airam Tripathi MAGNESIUMon 10-05-2022 Magnesium [Mass/Vol] 1.7 mg/dL Critically low 1.8-2.4 [facility] Comment on above: Performed By: #### M G, CMP ####[facility] Qyifgswtqh[address] [place], [place] [address]DrKianna Tripathi POINT OF CARE GLUCOSEon 09-24 Glucose [Mass/Vol] 92 mg/dL Normal 74-106 [facility] Comment on above: Performed By: #### P OCGLUC ####[facility] Wreqnvlqzz085[address] [place], [place] [address]Dr. Airam Tripathi PROF 14(COMP METB)on 023 Albumin [Mass/Vol] 2.9 g/dL Critically low 3.4-5.0 [facility] Comment on above: Performed By: #### M G, CMP ####[facility] Ahdzcfwbkz525[address] [place], [place] [address]Dr. Airam Tripathi Albumin/Globulin [Mass ratio] 0.9 {ratio} Normal [facility] Comment on above: Performed By: #### Nadya Calderon, CMP ####[facility] Bildhtlnmy9956 [place] [address]Dr. Airam Tripathi ALP [Catalytic activity/Vol] 122 U/L Critically high 46-116 [facility] Comment on above: Performed By: #### Nadya Calderon, CMP ####[facility] Rlgdvbmfiu8869 [place] [address]Dr. Airam Tripathi ALT [Catalytic activity/Vol] 24 U/L Normal 14-59 [facility] Comment on above: Performed By: #### Nadya Calderon, CMP ####[facility] Xrjesdlylm5742 [place] [address]Dr. Airam Tripathi Anion gap [Moles/Vol] 13.1 mmol/L Normal [facility] Comment on above: Performed By: #### Nadya Calderon, CMP ####[facility] Kqqmtkkopo980[address] [place], [place] [address]Dr. Airam Tripathi AST [Catalytic activity/Vol] 21 U/L Normal 15-37 [facility] Comment on above: Performed By: #### Nadya Calderon, CMP ####[facility] Pppkucifrf2216 [place] [address]Dr. Airam Tripathi Bilirubin [Mass/Vol] 0.2 mg/dL Normal 0.2-1.0 [facility] Comment on above: Performed By: #### Nadya Calderon, CMP ####[facility] Beidrourjf1919 [place] [address]Dr. Airam Tripathi Calcium [Mass/Vol] 8.4 mg/dL Critically low 8.5-10.1 [facility] Comment on above: Performed By: #### Nadya Calderon, CMP ####[facility] Cqtrvnxfbe0090 [place] [address]Dr. Airam Tripathi Chloride [Moles/Vol] 102 mmol/L Normal 98-107 [facility] Comment on above: Performed By: #### Nadya Calderon, CMP ####[facility] Otldqzcjoe445[address] [place], [place] [address]Dr. Airam Tripathi CO2 [Moles/Vol] 23.2 mmol/L Normal 21.0-32.0 [facility] Comment on above: Performed By: #### Nadya Calderon, CMP ####[facility] Hwcobpfusp5327 [place] [address]Dr. Airam Tripathi Creatinine [Mass/Vol] 1.96 mg/dL Critically high 0.55-1.02 [facility] Comment on above: Performed By: #### Nadya Calderon, CMP ####[facility] Ilahvvclux099[address] [place], [place] [address]Dr. Airam Tripathi EGFR-AF ROMANIAN 32 mL/min/1.73m2 Critically low >=60 [facility] Comment on above: Performed By: #### Nadya Calderon, CMP ####[facility] Ehqvugmrfn669[address] [place], [place] [address]Dr. Airam Tripathi EGFR-NON AF ROMANIAN 26 mL/min/1.73m2 Critically low >=60 [facility] Comment on above: Performed By: #### Nadya Calderon, CMP ####[facility] Tddoddymjd5716[address] [place], [place] [address]Dr. Airam Tripathi Globulin (S) [Mass/Vol] 3.2 g/dL Normal [facility] Comment on above: Performed By: #### Nadya Calderon, CMP ####[facility] Nagpfxryiy664[address] [place], [place] [address]Dr. Airam Tripathi Glucose [Mass/Vol] 68 mg/dL Critically low 74-106 [facility] Comment on above: Performed By: #### Nadya Calderon, CMP ####[facility] Ycnmwdxcpx[address] [place], [place] [address]Dr. Airam Tripathi Potassium [Moles/Vol] 5.3 mmol/L Critically high 3.5-5.1 [facility] Comment on above: Performed By: #### Nadya Calderon, CMP ####[facility] Vjdofkgytf5501[address] [place], [place] [address]Dr. Airam Tripathi Protein [Mass/Vol] 6.1 g/dL Critically low 6.4-8.2 [facility] Comment on above: Performed By: #### Nadya Calderon, CMP ####[facility] Crscitxmrk5857 [place] [address]Dr. Airam Tripathi Sodium [Moles/Vol] 133 mmol/L Critically low 136-145 [facility] Comment on above: Performed By: #### M G, CMP ####[facility] Kcvlggvsob1338 [place] [address]Dr. Airam Tripathi Urea nitrogen [Mass/Vol] 39.0 mg/dL Critically high 7.0-18.0 [facility] Comment on above: Performed By: #### M G, CMP ####[facility] Fyvpttuwob8923 [place] [address]Dr. Airam Tripathi Urea nitrogen/Creatinine [Mass ratio] 19.9 mg/mg Normal [facility] Comment on above: Performed By: #### M G, CMP ####[facility] Toydcdvovn84[address] [place], [place] [address]Dr. Airam Tripathi SODIUM RANDOM URINEon 2022 Sodium (U) [Moles/Vol] 37 mmol/L Normal 30-90 [facility] Comment on above: Performed By: #### N AU ####[facility] Tnowysezip438[address] [place], [place] [address]Dr. Airam Tripathi UA RANDOM W/MICROSCOPICon BACTERIA TRACE Abnormal NONE SEEN [facility] Comment on above: Performed By: #### U AMIC ####[facility] Bpftfenmfr032[address] [place], [place] [address]Dr. Airam Tripathi Bilirubin Ql (U) Negative Normal NEGATIVE [facility] Comment on above: Performed By: #### U AMIC ####[facility] Iugnoxmwui8540 [place] [address]Dr. Airam Tripathi CAST SEEN Abnormal NONE SEEN [facility] Comment on above: Performed By: #### U AMIC ####[facility] Qdpmmfvgiy9665 [place] [address]Dr. Airam Tripathi Clarity (U) CLEAR Normal CLEAR [facility] Comment on above: Performed By: #### U AMIC ####[facility] Atiaacgacp6871 [place] [address]Dr. Airam Tripathi Color (U) YELLOW Normal YELLOW [facility] Comment on above: Performed By: #### U AMIC ####[facility] Gveeprxcpr499[address] [place], [place] [address]Dr. Airam Tripathi Crystals LM Nom (Urine sed) NONE SEEN Normal NONE SEEN [facility] Comment on above: Performed By: #### U AMIC ####[facility] Nzyqyieyhv728[address] [place], [place] [address]Dr. Airam Tripathi Epithelial cells LM Ql (Urine sed) RARE Normal NONE SEEN /RARE [facility] Comment on above: Performed By: #### U AMIC ####[facility] Ilwxhezhfr14[address] [place], [place] [address]Dr. Airam Tripathi Glucose Ql (U) Negative Normal NEGATIVE [facility] Comment on above: Performed By: #### U AMIC ####[facility] Mhoqzxitvr7514[address] [place], [place] [address]Dr. Airam Tripathi Hemoglobin Ql (U) Negative Normal NEGATIVE [facility] Comment on above: Performed By: #### U AMIC ####[facility] Oxwcpdlkcm653[address] [place], [place] [address]Dr. Airam Tripathi HYALINE CAST RARE Normal [facility] Comment on above: Performed By: #### U AMIC ####[facility] Lwyxludkzr094[address] [place], [place] [address]Dr. Airam Tripathi Ketones Ql (U) TRACE Abnormal NEGATIVE [facility] Comment on above: Performed By: #### U AMIC ####[facility] Foqquzawui55340[address] [place], [place] [address]Dr. Airam Tripathi LEUKOCYTES Negative Normal NEGATIVE [facility] Comment on above: Performed By: #### U AMIC ####[facility] Mwnvzfphfy5[address] [place], [place] [address]Dr. Airam Tripathi MUCOUS NONE SEEN Normal NONE SEEN [facility] Comment on above: Performed By: #### U AMIC ####[facility] Wpokbyilyf315[address] [place], [place] [address]Dr. Airam Tripathi Nitrite Ql (U) Negative Normal NEGATIVE [facility] Comment on above: Performed By: #### U AMIC ####[facility] Vcjxqzvqlx3915 [place] [address]Dr. Airam Tripathi pH (U) 5.0 [pH] Normal 5-9 [facility] Comment on above: Performed By: #### U AMIC ####[facility] Rmwvclbocw3133 [place] [address]Dr. Airam Deuce RBC 0-2 Normal 0-2 [facility] Comment on above: Performed By: #### U AMIC ####[facility] Rodezojscv9997 [place] [address]Dr. Airam Tripathi SPEC GRAVITY 1.015 Normal 1.005-<=1.02 5 [facility] Comment on above: Performed By: #### U AMIC ####[facility] Wlsskuwwfo[address] [place], [place] [address]Dr. Airam Tripathi UA PROTEIN Negative Normal NEGATIVE/ TRACE [facility] Comment on above: Performed By: #### U AMIC ####[facility] Ahpwggsfkl[address] [place], [place] [address]Dr. Airam Deuce Urobilinogen Qn (U) 0.2 {Ligia'U}/dL Normal 0.2 - 1. 0 [facility] Comment on above: Performed By: #### U AMIC ####[facility] Qapahufrpj8[address] [place], [place] [address]Dr. Selenaneil Tripathi WBC NONE SEEN Normal NONE SEEN [facility] Comment on above: Performed By: #### U AMIC ####[facility] Vwhyjzrqsy878[address] [place], [place] [address]Dr. Airam Deuce CBC AUTO DIFFon 10-04-2022 BASO # 0.0 103/ul Normal 0.0-0.1 [facility] Comment on above: Performed By: #### C BC ####[facility] Kmqfhcfxnk[address] [place] [place], [place] [address]Dr. Selenaneil Tripathi Basophils/100 WBC (Bld) 0.3 % Normal 0.2-2.0 [facility] Comment on above: Performed By: #### C BC ####[facility] Nzl[address]laurqc25[address] [place] [phone]. Airam Tripathi EO # 0.2 103/ul Normal 0.0-0.7 [facility] Comment on above: Performed By: #### C BC ####[facility] Aoqpdelkta2731 [place] [phone]. Airam Tripathi Eosinophils/100 WBC (Bld) 3.2 % Normal 0.9-7.0 [facility] Comment on above: Performed By: #### C BC ####[facility] Pibsgtdgiy[address] [place], [place] [address]Dr. Airam Tripathi Erythrocyte distribution width (RBC) [Ratio] 15.1 % Critically high 11.0-15.0 [facility] Comment on above: Performed By: #### C BC ####[facility] Swxycsydos74[address] [place], [place] [address]Dr. Airam Tripathi Hematocrit (Bld) [Volume fraction] 27.6 % Critically low 36.0-48.0 [facility] Comment on above: Performed By: #### C BC ####[facility] Bjjnntvjhg224[address] [place], [place] [address]Dr. Airam Tripathi Hemoglobin (Bld) [Mass/Vol] 8.7 g/dL Critically low 12.0-16.0 [facility] Comment on above: Performed By: #### C BC ####[facility] Adtpguugbi[address] [place], [place] [address]Dr. Airam Tripathi IG # 0.03 10e3/ul Normal 0.00-0.03 [facility] Comment on above: Performed By: #### C BC ####[facility] Fkpuplirkc612[address] [place], [place] [address]Dr. Airam Tripathi IG % 0.4 % Normal 0.0-0.5 [facility] Comment on above: Performed By: #### C BC ####[facility] Njdzoafvrt19[address] [place], [place] [address]Dr. Airam Tripathi LYMPH # 1.2 103/ul Normal 1.2-3.8 [facility] Comment on above: Performed By: #### C BC ####[facility] Xbfofvyihm9367 [place] [phone]. Airam Tripathi Lymphocytes/100 WBC (Bld) 16.4 % Critically low 20.5-60.0 [facility] Comment on above: Performed By: #### C BC ####[facility] Mnkphswhmq9464 [place] [phone]. Selenaneil Tripathi MANUAL DIFF REQ NO Normal [facility] Comment on above: Performed By: #### C BC ####[facility] Olnvdsbgye[address] [place], [place] [id number]. Airam Deuce MCH (RBC) [Entitic mass] 28.5 pg Normal 26.7-34.0 [facility] Comment on above: Performed By: #### C BC ####[facility] Luiudinwiu767[address] [place], [place] [address]Dr. Airam Deuce MCHC (RBC) [Mass/Vol] 31.5 g/dL Normal 29.9-35.2 [facility] Comment on above: Performed By: #### C BC ####[facility] Uiegizocbx2299[address] [place], [place] [address]Dr. Ariam Tripathi MCV (RBC) [Entitic vol] 90.5 fL Normal 81.0-99.0 [facility] Comment on above: Performed By: #### C BC ####[facility] Wpjygghpgm[address] [place], [place] [address]Dr. Airam Deuce MONO # 0.5 103/ul Normal 0.3-0.8 [facility] Comment on above: Performed By: #### C BC ####[facility] Jeohultebr0629[address] [place], [place] [address]Dr. Selenaneil Tripathi Monocytes/100 WBC (Bld) 7.3 % Normal 1.7-12.0 [facility] Comment on above: Performed By: #### C BC ####[facility] Hreaxoycei29040[address] [place], [place] [address]Dr. Airam Tripathi NEUT # 5.4 103/ul Normal 1.4-6.5 [facility] Comment on above: Performed By: #### C BC ####[facility] Rksuznhrok2889 [place] [phone]. Airam Tripathi Neutrophils/100 WBC (Bld) 72.4 % Normal 43.0-75.0 [facility] Comment on above: Performed By: #### C BC ####[facility] Kggpquqslg4453 [place] [phone]. Selenaneil Tripathi Platelet mean volume (Bld) [Entitic vol] 9.1 fL Critically low 9.5-13.5 [facility] Comment on above: Performed By: #### C BC ####[facility] Qmbjbhketq75[address] [place] [address]Dr. Airam Tripathi PLT 304 103/ul Normal 150-450 [facility] Comment on above: Performed By: #### C BC ####[facility] Yhljipuxqn2353 [place] [address]Dr. Airam Tripathi RBC 3.05 106/ul Critically low 4.20-5.40 [facility] Comment on above: Performed By: #### C BC ####[facility] Targvweilu1512 [place] [address]Dr. Airam Tripathi WBC 7.4 103/ul Normal 4.0-11.0 [facility] Comment on above: Performed By: #### C BC ####[facility] Dkqawrgwxa9150 [place] [address]Dr. Airam Tripathi PROF 14(COMP METB)on 023 Albumin [Mass/Vol] 3.3 g/dL Critically low 3.4-5.0 [facility] Comment on above: Performed By: #### C MP ####[facility] Ujoxzayuwc8730 [place] [address]Dr. Airam Tripathi Albumin/Globulin [Mass ratio] 0.9 {ratio} Normal [facility] Comment on above: Performed By: #### C MP ####[facility] Kiosrvmzvw8706 [place] [address]Dr. Airam Tripathi ALP [Catalytic activity/Vol] 127 U/L Critically high 46-116 [facility] Comment on above: Performed By: #### C MP ####[facility] Ihemmskvvn1430 [place] [phone]. Airam Tripathi ALT [Catalytic activity/Vol] 29 U/L Normal 14-59 [facility] Comment on above: Performed By: #### C MP ####[facility] Gtupqehuwh5466 [place] [phone]. Airam Tripathi Anion gap [Moles/Vol] 14.6 mmol/L Normal [facility] Comment on above: Performed By: #### C MP ####[facility] Frzobjpkgl354[address] [place], [place] [address]Dr. Airam Tripathi AST [Catalytic activity/Vol] 28 U/L Normal 15-37 [facility] Comment on above: Performed By: #### C MP ####[facility] Itgipxwvkq160[address] [place], [place] [address]Dr. Airam Tripathi Bilirubin [Mass/Vol] 0.3 mg/dL Normal 0.2-1.0 [facility] Comment on above: Performed By: #### C MP ####[facility] Qudhgopxqb156[address] [place], [place] [address]Dr. Airam Tripathi Calcium [Mass/Vol] 8.9 mg/dL Normal 8.5-10.1 [facility] Comment on above: Performed By: #### C MP ####[facility] Inmykwbxhq015[address] [place], [place] [address]Dr. Airam Tripathi Chloride [Moles/Vol] 99 mmol/L Normal 98-107 [facility] Comment on above: Performed By: #### C MP ####[facility] Nxyebmbqnh396[address] [place], [place] [address]Dr. Airam Tripathi CO2 [Moles/Vol] 25.1 mmol/L Normal 21.0-32.0 [facility] Comment on above: Performed By: #### C MP ####[facility] Bzwlltqowi[address] [place], [place] [address]Dr. Airam Tripathi Creatinine [Mass/Vol] 1.42 mg/dL Critically high 0.55-1.02 [facility] Comment on above: Performed By: #### C MP ####[facility] Mjkfsyorlf6399 [place] [phone]. Airam Tripathi EGFR-AF ROMANIAN 46 mL/min/1.73m2 Critically low >=60 [facility] Comment on above: Performed By: #### C MP ####[facility] Beonoqyscj9010 [place] [phone]. Airam Tripathi EGFR-NON AF ROMANIAN 38 mL/min/1.73m2 Critically low >=60 [facility] Comment on above: Performed By: #### C MP ####[facility] Zikmefckyk1408 [place] [phone]. Airam Tripathi Globulin (S) [Mass/Vol] 3.6 g/dL Normal [facility] Comment on above: Performed By: #### C MP ####[facility] Xddgyrrxku7966 [place] [phone]. Airam Tripathi Glucose [Mass/Vol] 79 mg/dL Normal 74-106 [facility] Comment on above: Performed By: #### C MP ####[facility] Wmhmijjeae5619 [place] [phone]. Airam Tripathi Potassium [Moles/Vol] 5.7 mmol/L Critically high 3.5-5.1 [facility] Comment on above: Performed By: #### C MP ####[facility] Svmdivdyzp9635 [place] [phone]. Airam Tripathi Protein [Mass/Vol] 6.9 g/dL Normal 6.4-8.2 [facility] Comment on above: Performed By: #### C MP ####[facility] Csyttreizm6162 [place] [phone]. Airam Tripathi Sodium [Moles/Vol] 133 mmol/L Critically low 136-145 [facility] Comment on above: Performed By: #### C MP ####[facility] Kcdkmiuwbl6311 [place] [phone]. Airam Tripathi Urea nitrogen [Mass/Vol] 35.0 mg/dL Critically high 7.0-18.0 [facility] Comment on above: Performed By: #### C MP ####[facility] Tfogcxeold9934 [place] [address]Dr. Airam Tripathi Urea nitrogen/Creatinine [Mass ratio] 24.6 mg/mg Normal [facility] Comment on above: Performed By: #### C MP ####[facility] Bgcpqofagn[address] [place], [place] [address]Dr. Airam Tripathi OSMOLALITYon 10-02-2022 Osmolality [Osmolality] 277 mosm/kg Normal 275-295 [facility] Comment on above: Performed By: #### O SMO ####[facility] Ukvqzgycju099[address] [place], [place] [address]Dr. Airam Deuce CBC AUTO DIFFon 09-29-2022 BASO # 0.0 103/ul Normal 0.0-0.1 [facility] Comment on above: Performed By: #### C BC ####[facility] Bvtoagvppw456[address] [place], [place] [address]Dr. Airam Tripathi Basophils/100 WBC (Bld) 0.5 % Normal 0.2-2.0 [facility] Comment on above: Performed By: #### C BC ####[facility] Rumjnpdnbg69[address] [place], [place] [address]Dr. Airam Deuce EO # 0.2 103/ul Normal 0.0-0.7 [facility] Comment on above: Performed By: #### C BC ####[facility] Xxywlklcuo80280[address] [place], [place] [address]Dr. Airam Tripathi Eosinophils/100 WBC (Bld) 3.2 % Normal 0.9-7.0 [facility] Comment on above: Performed By: #### C BC ####[facility] Wwbyqgzdxp859[address] [place], [place] [address]Dr. Airam Tripathi Erythrocyte distribution width (RBC) [Ratio] 15.1 % Critically high 11.0-15.0 [facility] Comment on above: Performed By: #### C BC ####[facility] Lkbuublldx127[address] [place], [place] [address]Dr. Airam Tripathi Hematocrit (Bld) [Volume fraction] 26.2 % Critically low 36.0-48.0 [facility] Comment on above: Performed By: #### C BC ####[facility] Xpvxxcpmye7944 [place] [phone]. Airam Tripathi Hemoglobin (Bld) [Mass/Vol] 8.1 g/dL Critically low 12.0-16.0 [facility] Comment on above: Performed By: #### C BC ####[facility] Iyjjtqqqwz0270 [place] [phone]. Airam Tripathi IG # 0.02 10e3/ul Normal 0.00-0.03 [facility] Comment on above: Performed By: #### C BC ####[facility] Vwemmobglj7523 [place] [address]Dr. Airam Tripathi IG % 0.4 % Normal 0.0-0.5 [facility] Comment on above: Performed By: #### C BC ####[facility] Ghjdftmxmn134[address] [place], [place] [address]Dr. Airam Tripathi LYMPH # 1.3 103/ul Normal 1.2-3.8 [facility] Comment on above: Performed By: #### C BC ####[facility] Nwfqqpskym6537 [place] [address]Dr. Airam Deuce Lymphocytes/100 WBC (Bld) 22.6 % Normal 20.5-60.0 [facility] Comment on above: Performed By: #### C BC ####[facility] Niqwucjzso7027 [place] [address]Dr. Airam Tripathi MANUAL DIFF REQ NO Normal [facility] Comment on above: Performed By: #### C BC ####[facility] Czhgjckuxo8122 [place] [phone]. Airam Tripathi MCH (RBC) [Entitic mass] 28.0 pg Normal 26.7-34.0 [facility] Comment on above: Performed By: #### C BC ####[facility] Nhqloysono6537 [place] [phone]. Airam Deuce MCHC (RBC) [Mass/Vol] 30.9 g/dL Normal 29.9-35.2 [facility] Comment on above: Performed By: #### C BC ####[facility] Gnrisincrr1377 [place] [phone]. Airam Tripathi MCV (RBC) [Entitic vol] 90.7 fL Normal 81.0-99.0 [facility] Comment on above: Performed By: #### C BC ####[facility] Kgxdjibyod8630 [place] [phone]. Airam Tripathi MONO # 0.5 103/ul Normal 0.3-0.8 [facility] Comment on above: Performed By: #### C BC ####[facility] Pevwzpaupa3175 [place] [phone]. Airam Tripathi Monocytes/100 WBC (Bld) 9.6 % Normal 1.7-12.0 [facility] Comment on above: Performed By: #### C BC ####[facility] Ghogwuuvop554[address] [place], [place] [address]Dr. Airam Tripathi NEUT # 3.6 103/ul Normal 1.4-6.5 [facility] Comment on above: Performed By: #### C BC ####[facility] Uznuaaolnh906[address] [place], [place] [address]Dr. Airam Tripathi Neutrophils/100 WBC (Bld) 63.7 % Normal 43.0-75.0 [facility] Comment on above: Performed By: #### C BC ####[facility] Ohlmeviqqz803[address] [place], [place] [address]Dr. Airam Tripathi Platelet mean volume (Bld) [Entitic vol] 9.4 fL Critically low 9.5-13.5 [facility] Comment on above: Performed By: #### C BC ####[facility] Zrpqdymjrb1405 [place] [phone]. Airam Tripathi PLT 258 103/ul Normal 150-450 [facility] Comment on above: Performed By: #### C BC ####[facility] Pbqnyiwvfr5779 [place] [phone]. Airam Deuce RBC 2.89 106/ul Critically low 4.20-5.40 [facility] Comment on above: Performed By: #### C BC ####[facility] Ertdfmcjpg3370 [place] [address]Dr. Airam Tripathi WBC 5.6 103/ul Normal 4.0-11.0 [facility] Comment on above: Performed By: #### C BC ####[facility] Ccllwxsiln0276 [place] [address]Dr. Airam Tripathi PROF 14(COMP METB)on 023 Albumin [Mass/Vol] 3.0 g/dL Critically low 3.4-5.0 [facility] Comment on above: Performed By: #### C MP ####[facility] Sdjkhwajeq[address] [place], [place] [address]Dr. Airam Tripathi Albumin/Globulin [Mass ratio] 1.1 {ratio} Normal [facility] Comment on above: Performed By: #### C MP ####[facility] Mbbktxhptl616[address] [place], [place] [address]Dr. Airam Tripathi ALP [Catalytic activity/Vol] 102 U/L Normal 46-116 [facility] Comment on above: Performed By: #### C MP ####[facility] Dgrdefplck564[address] [place], [place] [address]Dr. Airam Tripathi ALT [Catalytic activity/Vol] 20 U/L Normal 14-59 [facility] Comment on above: Performed By: #### C MP ####[facility] Aedqsllems439[address] [place], [place] [address]Dr. Airam Tripathi Anion gap [Moles/Vol] 11.1 mmol/L Normal [facility] Comment on above: Performed By: #### C MP ####[facility] Koitulfqzw636[address] [place], [place] [address]Dr. Airam Tripathi AST [Catalytic activity/Vol] 18 U/L Normal 15-37 [facility] Comment on above: Performed By: #### C MP ####[facility] Qxaskgyfxh495[address] [place], [place] [address]Dr. Airam Tripathi Bilirubin [Mass/Vol] 0.2 mg/dL Normal 0.2-1.0 [facility] Comment on above: Performed By: #### C MP ####[facility] Paprmhsacv5334 [place] [phone]. Airam Tripathi Calcium [Mass/Vol] 8.0 mg/dL Critically low 8.5-10.1 [facility] Comment on above: Performed By: #### C MP ####[facility] Ijshxyrfjz3803 [place] [phone]. Airam Tripathi Chloride [Moles/Vol] 100 mmol/L Normal 98-107 [facility] Comment on above: Performed By: #### C MP ####[facility] Acwytyijgj0245 [place] [address]Dr. Airam Tripathi CO2 [Moles/Vol] 24.8 mmol/L Normal 21.0-32.0 [facility] Comment on above: Performed By: #### C MP ####[facility] Hljpvvsddg495[address] [place], [place] [address]Dr. Airam rTipathi Creatinine [Mass/Vol] 1.11 mg/dL Critically high 0.55-1.02 [facility] Comment on above: Performed By: #### C MP ####[facility] Oqhslgkyux666[address] [place], [place] [address]Dr. Airam Tripathi EGFR-AF ROMANIAN >60 Normal >=60 [facility] Comment on above: Performed By: #### C MP ####[facility] Jhatnysomg339[address] [place], [place] [address]Dr. Airam Tripathi EGFR-NON AF ROMANIAN 50 mL/min/1.73m2 Critically low >=60 [facility] Comment on above: Performed By: #### C MP ####[facility] Yebsecdzis6724[address] [place], [place] [address]Dr. Airam Tripathi Globulin (S) [Mass/Vol] 2.8 g/dL Normal [facility] Comment on above: Performed By: #### C MP ####[facility] Tyocjbehru2181 [place] [address]Dr. Airam Tripathi Glucose [Mass/Vol] 77 mg/dL Normal 74-106 [facility] Comment on above: Performed By: #### C MP ####[facility] Gdrgysiiec5766 [place] [address]Dr. Selenaneil Tripathi Potassium [Moles/Vol] 4.9 mmol/L Normal 3.5-5.1 [facility] Comment on above: Performed By: #### C MP ####[facility] Kkkkgukvlt3863 [place] [address]Dr. Airam Deuce Protein [Mass/Vol] 5.8 g/dL Critically low 6.4-8.2 [facility] Comment on above: Performed By: #### C MP ####[facility] Lewrknwqkf862[address] [place], [place] [address]Dr. Airam Tripathi Sodium [Moles/Vol] 131 mmol/L Critically low 136-145 [facility] Comment on above: Performed By: #### C MP ####[facility] Yikrtlbkio958[address] [place], [place] [address]Dr. Airam Tripathi Urea nitrogen [Mass/Vol] 33.0 mg/dL Critically high 7.0-18.0 [facility] Comment on above: Performed By: #### C MP ####[facility] Xytskzmmpy314[address] [place], [place] [address]Dr. Airam Tripathi Urea nitrogen/Creatinine [Mass ratio] 29.7 mg/mg Normal [facility] Comment on above: Performed By: #### C MP ####[facility] Jefiqhpzjb278[address] [place], [place] [address]Dr. Airam Tripathi ECHOCARDIO M/2D COMPLETEon 0 09-21-2022 ECHOCARDIO M/2D COMPLETE Normal [facility] OSMOLALITYon 09-21-2022 Osmolality [Osmolality] 282 mosm/kg Normal 275-295 [facility] Comment on above: Performed By: #### O SMO ####[facility] Thyagtnsnn613[address] [place], [place] [address]Dr. Airam Tripathi PHOSPHOLIPIDSon 09-21-2022 Phospholipids, Serum 249 mg/dL Normal 151-288 [facility] Comment on above: Performed By: #### P HOSLIP ####[facility] Ezixdjykrk177[address] [place], [place] [address]Dr. Airam Tripathi CBC AUTO DIFFon 09-20-2022 BASO # 0.0 103/ul Normal 0.0-0.1 [facility] Comment on above: Performed By: #### C BC ####[facility] Alptlsldge6870 [place] [address]Dr. Airam Tripathi Basophils/100 WBC (Bld) 0.5 % Normal 0.2-2.0 [facility] Comment on above: Performed By: #### C BC ####[facility] Bckejlvjjl436[address] [place], [place] [address]Dr. Airam Tripathi EO # 0.2 103/ul Normal 0.0-0.7 [facility] Comment on above: Performed By: #### C BC ####[facility] Lgoxsqlvcc477[address] [place], [place] [address]Dr. Airam Tripathi Eosinophils/100 WBC (Bld) 2.9 % Normal 0.9-7.0 [facility] Comment on above: Performed By: #### C BC ####[facility] Tcanizuucw9719[address] [place], [place] [address]Dr. Airam Deuce Erythrocyte distribution width (RBC) [Ratio] 15.4 % Critically high 11.0-15.0 [facility] Comment on above: Performed By: #### C BC ####[facility] Zqysffnuvk890[address] [place], [place] [address]Dr. Airam Tripathi Hematocrit (Bld) [Volume fraction] 26.3 % Critically low 36.0-48.0 [facility] Comment on above: Performed By: #### C BC ####[facility] Wknblfracf278[address] [place], [place] [address]Dr. Selenaneil Tripathi Hemoglobin (Bld) [Mass/Vol] 8.2 g/dL Critically low 12.0-16.0 [facility] Comment on above: Performed By: #### C BC ####[facility] Jlicngomhc3219[address] [place], [place] [address]Dr. Airam Tripathi IG # 0.03 10e3/ul Normal 0.00-0.03 [facility] Comment on above: Performed By: #### C BC ####[facility] Bqjiaxltnp170[address] [place], [place] [address]Dr. Airam Tripathi IG % 0.4 % Normal 0.0-0.5 [facility] Comment on above: Performed By: #### C BC ####[facility] Hsbnthyzov8091 [place] [address]Dr. Airam Tripathi LYMPH # 1.9 103/ul Normal 1.2-3.8 [facility] Comment on above: Performed By: #### C BC ####[facility] Yhnybvloye9961 [place] [address]Dr. Airam Tripathi Lymphocytes/100 WBC (Bld) 23.0 % Normal 20.5-60.0 [facility] Comment on above: Performed By: #### C BC ####[facility] Pacnthjxhc727[address] [place], [place] [address]DrKianna Tripathi MANUAL DIFF REQ NO Normal [facility] Comment on above: Performed By: #### C BC ####[facility] Jogofipdtg422[address] [place], [place] [address]Dr. Selenaneil Tripathi MCH (RBC) [Entitic mass] 28.5 pg Normal 26.7-34.0 [facility] Comment on above: Performed By: #### C BC ####[facility] Ymjthpcfhf004607 [address] [place], [place] [address]Dr. Airam Deuce MCHC (RBC) [Mass/Vol] 31.2 g/dL Normal 29.9-35.2 [facility] Comment on above: Performed By: #### C BC ####[facility] Rzxxmrfxqt353[address] [place], [place] [address]DrKianna Tripathi MCV (RBC) [Entitic vol] 91.3 fL Normal 81.0-99.0 [facility] Comment on above: Performed By: #### C BC ####[facility] Azagkjxcqm647[address] [place], [place] [address]DrKianna Tripathi MONO # 0.7 103/ul Normal 0.3-0.8 [facility] Comment on above: Performed By: #### C BC ####[facility] Bfvocvzlok[address] [place], [place] [address]DrKianna Tripathi Monocytes/100 WBC (Bld) 7.7 % Normal 1.7-12.0 [facility] Comment on above: Performed By: #### C BC ####[facility] Pgeunojqzy1225 [place] [address]DrKianna Airam Tripathi NEUT # 5.5 103/ul Normal 1.4-6.5 [facility] Comment on above: Performed By: #### C BC ####[facility] Uqmefecacs4310 [place] [address]DrKianna Airam Tripathi Neutrophils/100 WBC (Bld) 65.5 % Normal 43.0-75.0 [facility] Comment on above: Performed By: #### C BC ####[facility] Binsfawcnw869[address] [place], [place] [address]DrKianna Airam Tripathi Platelet mean volume (Bld) [Entitic vol] 9.1 fL Critically low 9.5-13.5 [facility] Comment on above: Performed By: #### C BC ####[facility] Mhcsdtbseb369[address] [place], [place] [address]DrKianna Airam Tripathi PLT 258 103/ul Normal 150-450 [facility] Comment on above: Performed By: #### C BC ####[facility] Dkpxozozob202[address] [place], [place] [address]DrKianna Airam Tripathi RBC 2.88 106/ul Critically low 4.20-5.40 [facility] Comment on above: Performed By: #### C BC ####[facility] Oymfylgolu624[address] [place], [place] [address]DrKianna Tripathi WBC 8.4 103/ul Normal 4.0-11.0 [facility] Comment on above: Performed By: #### C BC ####[facility] Euvggtzacq[address] [place], [place] [address]DrKianna Selenaneil Tripathi PROF CHEM 8 (BAS METB)on Anion gap [Moles/Vol] 10.3 mmol/L Normal [facility] Comment on above: Performed By: #### B MP ####[facility] Cxqovdieyc[address] [place], [place] [address]DrKianna Tripathi Calcium [Mass/Vol] 7.9 mg/dL Critically low 8.5-10.1 [facility] Comment on above: Performed By: #### B MP ####[facility] Yycikwsyft[address] [place] [place] [address]Dr. Airam Tripathi Chloride [Moles/Vol] 98 mmol/L Normal 98-107 [facility] Comment on above: Performed By: #### B MP ####[facility] Jsrwsnpbta201[address] [place], [place] [address]Dr. Airam Tripathi CO2 [Moles/Vol] 27.5 mmol/L Normal 21.0-32.0 [facility] Comment on above: Performed By: #### B MP ####[facility] Ajuwjryfyf9[address] [place], [place] [address]Dr. Airam Tripathi Creatinine [Mass/Vol] 1.44 mg/dL Critically high 0.55-1.02 [facility] Comment on above: Performed By: #### B MP ####[facility] Ctnbmvfybr05[address] [place], [place] [address]Dr. Airam Tripathi EGFR-AF ROMANIAN 45 mL/min/1.73m2 Critically low >=60 [facility] Comment on above: Performed By: #### B MP ####[facility] Ztvzgvrkuc017[address] [place], [place] [address]Dr. Airam Tripathi EGFR-NON AF ROMANIAN 37 mL/min/1.73m2 Critically low >=60 [facility] Comment on above: Performed By: #### B MP ####[facility] Qjncnqhoqz27[address] [place], [place] [address]Dr. Airam Tripathi Glucose [Mass/Vol] 91 mg/dL Normal 74-106 [facility] Comment on above: Performed By: #### B MP ####[facility] Tzvlzvxxal840[address] [place], [place] [address]Dr. Airam Tripathi Potassium [Moles/Vol] 4.8 mmol/L Normal 3.5-5.1 [facility] Comment on above: Performed By: #### B MP ####[facility] Qvyjlkshxi916[address] [place], [place] [address]Dr. Selenaneil Deuce Sodium [Moles/Vol] 131 mmol/L Critically low 136-145 [facility] Comment on above: Performed By: #### B MP ####[facility] Cpibclmivq[address] [place] [address]Dr. Airam Tripathi Urea nitrogen [Mass/Vol] 40.0 mg/dL Critically high 7.0-18.0 [facility] Comment on above: Performed By: #### B MP ####[facility] Rhkjinsgzq555[address] [place], [place] [address]Dr. Airam Tripathi Urea nitrogen/Creatinine [Mass ratio] 27.8 mg/mg Normal [facility] Comment on above: Performed By: #### B MP ####[facility] Znyenagkhg146[address] [place], [place] [address]Dr. Airam Tripathi Anion gap [Moles/Vol] 10.6 mmol/L Normal [facility] Comment on above: Performed By: #### B MP ####[facility] Naegylbysx018407 [address] [place], [place] [address]Dr. Airam Tripathi Calcium [Mass/Vol] 7.9 mg/dL Critically low 8.5-10.1 [facility] Comment on above: Performed By: #### B MP ####[facility] Znxsnkheuo859[address] [place], [place] [address]Dr. Airam Tripathi Chloride [Moles/Vol] 101 mmol/L Normal 98-107 [facility] Comment on above: Performed By: #### B MP ####[facility] Vplzhlzhvh08260[address] [place], [place] [address]Dr. Airam Tripathi CO2 [Moles/Vol] 27.4 mmol/L Normal 21.0-32.0 [facility] Comment on above: Performed By: #### B MP ####[facility] Xjhrfcbfnx278607 [address] [place], [place] [address]Dr. Selenaneil Deuce Creatinine [Mass/Vol] 1.35 mg/dL Critically high 0.55-1.02 [facility] Comment on above: Performed By: #### B MP ####[facility] Adotjkyaoi8829[address] [place], [place] [address]Dr. Selenaneil Deuce EGFR-AF ROMANIAN 48 mL/min/1.73m2 Critically low >=60 [facility] Comment on above: Performed By: #### B MP ####[facility] Gxaxluuvdb24[address] [place] [address]Dr. Airam Tripathi EGFR-NON AF ROMANIAN 40 mL/min/1.73m2 Critically low >=60 [facility] Comment on above: Performed By: #### B MP ####[facility] Hcvzxosonj284[address] [place], [place] [address]Dr. Selenaneil Deuce Glucose [Mass/Vol] 114 mg/dL Critically high 74-106 [facility] Comment on above: Performed By: #### B MP ####[facility] Fenzqpnccg6899[address] [place], [place] [address]Dr. Airam Tripathi Potassium [Moles/Vol] 5.0 mmol/L Normal 3.5-5.1 [facility] Comment on above: Performed By: #### B MP ####[facility] Zqylairgjf297[address] [place], [place] [address]Dr. Airam Tripathi Sodium [Moles/Vol] 134 mmol/L Critically low 136-145 [facility] Comment on above: Performed By: #### B MP ####[facility] Pohjwqtszc744[address] [place], [place] [address]Dr. Airam Tripathi Urea nitrogen [Mass/Vol] 40.0 mg/dL Critically high 7.0-18.0 [facility] Comment on above: Performed By: #### B MP ####[facility] Hwlfyuqcls766[address] [place], [place] [address]Dr. Airam Tripathi Urea nitrogen/Creatinine [Mass ratio] 29.6 mg/mg Normal [facility] Comment on above: Performed By: #### B MP ####[facility] Buqsunmnqz174207 [address] [place], [place] [address]Dr. Airam Deuce PTH INTACTon 09-20-2022 PTH, Intact 104 pg/mL Critically high 15-65 [facility] Comment on above: Performed By: #### P THINT ####[facility] Swzldjogsz088[address] [place], [place] [id number]. Airam Tripathi BNPon 09-19-2022 Natriuretic peptide B (Bld) [Mass/Vol] 1272.0 pg/mL Critically high <=900.0 [facility] Comment on above: Performed By: #### H STROPN, TSH, K, BNP ####[facility] Ephslkablv[address] [place] [address]Dr. Airam Tripathi CBC AUTO DIFFon 09-19-2022 BASO # 0.0 103/ul Normal 0.0-0.1 [facility] Comment on above: Performed By: #### C BC ####[facility] Ugvwwztnde06[address] [place], [place] [address]Dr. Airam Deuce Basophils/100 WBC (Bld) 0.5 % Normal 0.2-2.0 [facility] Comment on above: Performed By: #### C BC ####[facility] Qqqbbmouyf8837[address] [place], [place] [address]Dr. Selenaneil Tripathi EO # 0.2 103/ul Normal 0.0-0.7 [facility] Comment on above: Performed By: #### C BC ####[facility] Zrnqiukdnk708[address] [place], [place] [address]Dr. Airam Deuce Eosinophils/100 WBC (Bld) 2.6 % Normal 0.9-7.0 [facility] Comment on above: Performed By: #### C BC ####[facility] Icpzflpuhu224[address] [place], [place] [address]Dr. Selenaneil Tripathi Erythrocyte distribution width (RBC) [Ratio] 15.5 % Critically high 11.0-15.0 [facility] Comment on above: Performed By: #### C BC ####[facility] Vwtvswezdy214[address] [place], [place] [address]Dr. Airam Tripathi Hematocrit (Bld) [Volume fraction] 31.1 % Critically low 36.0-48.0 [facility] Comment on above: Performed By: #### C BC ####[facility] Efvjmhnkws154[address] [place], [place] [address]Dr. Airam Tirpathi Hemoglobin (Bld) [Mass/Vol] 9.6 g/dL Critically low 12.0-16.0 [facility] Comment on above: Performed By: #### C BC ####[facility] Gyclwrfnkh[address] [place] [address]Dr. Airam Tripathi IG # 0.04 10e3/ul Critically high 0.00-0.03 [facility] Comment on above: Performed By: #### C BC ####[facility] Zkzfpdxiqm5537 [place] [address]Dr. Airam Tripathi IG % 0.5 % Normal 0.0-0.5 [facility] Comment on above: Performed By: #### C BC ####[facility] Mgwnhjuvna5[address] [place] [address]Dr. Airam Tripathi LYMPH # 1.0 103/ul Critically low 1.2-3.8 [facility] Comment on above: Performed By: #### C BC ####[facility] Sirbmakbjg4470 [place] [address]DrKianna Tripathi Lymphocytes/100 WBC (Bld) 12.0 % Critically low 20.5-60.0 [facility] Comment on above: Performed By: #### C BC ####[facility] Bhdotstcsy9[address] [place] [address]DrKianna Tripathi MANUAL DIFF REQ NO Normal [facility] Comment on above: Performed By: #### C BC ####[facility] Ddspouugcu86[address] [place] [address]DrKianna Tripathi MCH (RBC) [Entitic mass] 28.2 pg Normal 26.7-34.0 [facility] Comment on above: Performed By: #### C BC ####[facility] [address]wjhvdt6[address] [place] [id number] Tripathi MCHC (RBC) [Mass/Vol] 30.9 g/dL Normal 29.9-35.2 [facility] Comment on above: Performed By: #### C BC ####[facility] Xwvgztrgto4944 [place] [address]DrKianna Tripathi MCV (RBC) [Entitic vol] 91.5 fL Normal 81.0-99.0 [facility] Comment on above: Performed By: #### C BC ####[facility] Bvlgdlhyqd5[address] [place] [address]Dr. Airam Tripathi MONO # 0.5 103/ul Normal 0.3-0.8 [facility] Comment on above: Performed By: #### C BC ####[facility] Fwzlpdehjz49[address] [place] [address]Dr. Airam Tripathi Monocytes/100 WBC (Bld) 6.4 % Normal 1.7-12.0 [facility] Comment on above: Performed By: #### C BC ####[facility] Rpaqebndgy08[address] [place] [address]Dr. Airam Tripathi NEUT # 6.4 103/ul Normal 1.4-6.5 [facility] Comment on above: Performed By: #### C BC ####[facility] Vfihxgsndl30[address] [place] [address]Dr. Airam Tripathi Neutrophils/100 WBC (Bld) 78.0 % Critically high 43.0-75.0 [facility] Comment on above: Performed By: #### C BC ####[facility] Bnlvswoant4314 [place] [address]Dr. Airam Tripathi Platelet mean volume (Bld) [Entitic vol] 9.1 fL Critically low 9.5-13.5 [facility] Comment on above: Performed By: #### C BC ####[facility] V[address]rew[address]df[address] [place] [address]Dr. Airam Tripathi PLT 318 103/ul Normal 150-450 [facility] Comment on above: Performed By: #### C BC ####[facility] Yufymcamqw[address] [place] [id number]. Airam Tripathi RBC 3.40 106/ul Critically low 4.20-5.40 [facility] Comment on above: Performed By: #### C BC ####[facility] Eczulchgwq0535 [place] [address]Dr. Airam Tripathi WBC 8.2 103/ul Normal 4.0-11.0 [facility] Comment on above: Performed By: #### C BC ####[facility] Somk[address]kxcj[address] [place] [id number]. Airam Tripathi [facility] SARS-CoV-2 (COVID-19) RNA MIKE+probe Ql (Unsp spec) Not detected Normal NOT DETECTED [facility] Comment on above: Result Comment: When [...] for this test is supported by the Lapidary Apprentice of Health and Human Service's declaration that [...] be used). Performed By: #### C VDTBH ####[facility] Pr[address]xjffilp46[address] [place] [address]Dr. Airam Tripathi LACTATE/LACTIC ACIDon 2022 Lactate [Moles/Vol] 0.4 mmol/L Normal 0.4-2.0 [facility] Comment on above: Performed By: #### L ACT ####[facility] Zlvjhiktqi1608 [place] [phone]. Airam Deuce POTASSIUMon 09-19-2022 Potassium [Moles/Vol] 6.3 mmol/L Critically high 3.5-5.1 [facility] Comment on above: Performed By: #### H STROPN, TSH, K, BNP ####[facility] Jipalxtdta0268 [place] [phone]. Airam Tripathi PROF 14(COMP METB)on 023 Albumin [Mass/Vol] 3.5 g/dL Normal 3.4-5.0 [facility] Comment on above: Performed By: #### C MP ####[facility] Ddmodtoctb9127 [place] [address]Dr. Airam Deuce Albumin/Globulin [Mass ratio] 1.1 {ratio} Normal [facility] Comment on above: Performed By: #### C MP ####[facility] Ataviccgxz8045 [place] [address]Dr. Airam Tripathi ALP [Catalytic activity/Vol] 113 U/L Normal 46-116 [facility] Comment on above: Performed By: #### C MP ####[facility] Xtdzzumfjy8[address] [place], [place] [address]Dr. Airam Tripathi ALT [Catalytic activity/Vol] 26 U/L Normal 14-59 [facility] Comment on above: Performed By: #### C MP ####[facility] Qnywapzgev2914[address] [place], [place] [address]Dr. Airam Tripathi Anion gap [Moles/Vol] 11.5 mmol/L Normal [facility] Comment on above: Performed By: #### C MP ####[facility] Qajbpbpcqa4913[address] [place], [place] [address]Dr. Airam Tripathi AST [Catalytic activity/Vol] 24 U/L Normal 15-37 [facility] Comment on above: Performed By: #### C MP ####[facility] Jxvnlvkewb58[address] [place], [place] [address]Dr. Airam Tripathi Bilirubin [Mass/Vol] 0.3 mg/dL Normal 0.2-1.0 [facility] Comment on above: Performed By: #### C MP ####[facility] Aaplartiim245[address] [place], [place] [address]Dr. Airam Tripathi Calcium [Mass/Vol] 8.9 mg/dL Normal 8.5-10.1 [facility] Comment on above: Performed By: #### C MP ####[facility] Exlxlnspee318[address] [place], [place] [address]Dr. Airam Tripathi Chloride [Moles/Vol] 103 mmol/L Normal 98-107 [facility] Comment on above: Performed By: #### C MP ####[facility] Hhjbfxncyj8619 [place] [phone]. Airam Tripathi CO2 [Moles/Vol] 27.8 mmol/L Normal 21.0-32.0 [facility] Comment on above: Performed By: #### C MP ####[facility] Pvkajwzfvg4347 [place] [address]Dr. Airam Tripathi Creatinine [Mass/Vol] 1.28 mg/dL Critically high 0.55-1.02 [facility] Comment on above: Performed By: #### C MP ####[facility] Qioxkhwlfb7445 [place] [address]Dr. Airam Tripathi EGFR-AF ROMANIAN 52 mL/min/1.73m2 Critically low >=60 [facility] Comment on above: Performed By: #### C MP ####[facility] Oslnzolmhi37[address] [place] [address]Dr. Airam Tripathi EGFR-NON AF ROMANIAN 43 mL/min/1.73m2 Critically low >=60 [facility] Comment on above: Performed By: #### C MP ####[facility] Gzkwpocpkf7464 [place] [address]Dr. Airam Tripathi Globulin (S) [Mass/Vol] 3.2 g/dL Normal [facility] Comment on above: Performed By: #### C MP ####[facility] Hueyplgrzq1304 [place] [address]Dr. Airam Tripathi Glucose [Mass/Vol] 95 mg/dL Normal 74-106 [facility] Comment on above: Performed By: #### C MP ####[facility] Xljvtmtgyx4214 [place] [phone]. Airam Tripathi Potassium [Moles/Vol] 6.3 mmol/L Critically high 3.5-5.1 [facility] Comment on above: Performed By: #### C MP ####[facility] Xkydqlbbca7873 [place] [address]Dr. Airam Tripathi Protein [Mass/Vol] 6.7 g/dL Normal 6.4-8.2 [facility] Comment on above: Performed By: #### C MP ####[facility] Vsvuezhcuh6808 [place] [address]DrKianna Airam Tripathi Sodium [Moles/Vol] 135 mmol/L Critically low 136-145 [facility] Comment on above: Performed By: #### C MP ####[facility] Hcjpiaakmg3629 [place] [address]DrKianna Airam Tripathi Urea nitrogen [Mass/Vol] 42.0 mg/dL Critically high 7.0-18.0 [facility] Comment on above: Performed By: #### C MP ####[facility] Blhpikbdic2401 [place] [address]DrKianna Airam Tripathi Urea nitrogen/Creatinine [Mass ratio] 32.8 mg/mg Normal [facility] Comment on above: Performed By: #### C MP ####[facility] Mtqnmlsfcb815[address] [place], [place] [address]DrKianna Airam Tripathi TROPONIN, HIGH SENSITIVITYon 09-19-2022 HSTROP 7.1 pg/mL Normal 4.0-51.3 [facility] Comment on above: Result Comment: CUT- OFF POINTS HAVE BEEN ESTABLISHED BASED ON THE FOURTH UNIVERSAL DEFINITIONS OF MYOCARDIALINFARCTION. THE UPPER REFERENCE LIMIT (URL) OF TROPONIN, DEFINED THE 99TH PERCENTILE OFcTnI DISTRIBUTION IN A REFERENCE POPULATION, HAS BEEN CONFIRMED THE DECISION THRESHOLDFOR DE DIAGNOSIS. Performed By: #### H STROPN, TSH, K, BNP ####[facility] Qhracinpqe2021 [place] [address]DrKianna Airam Tripathi TSHon 09-19-2022 TSH 0.028 uIU/mL Critically low 0.358-3.740 [facility] Comment on above: Performed By: #### H STROPN, TSH, K, BNP ####[facility] Nibgjjdltg8889 [place] [address]DrKianna Airam Tripathi UA RANDOMon 09-19-2022 Bilirubin Ql (U) Negative Normal NEGATIVE [facility] Comment on above: Performed By: #### U A ####[facility] Oyfvfgoqey149[address] [place], [place] [address]Dr. Airam Tripathi Clarity (U) CLEAR Normal CLEAR [facility] Comment on above: Performed By: #### U A ####[facility] Bgrqfkfyxw0122 [place] [address]Dr. Airam Tripathi Color (U) LT. YELLOW Normal YELLOW [facility] Comment on above: Performed By: #### U A ####[facility] Puwjoxzosu4746 [place] [address]Dr. Airam Tripathi Glucose Ql (U) Negative Normal NEGATIVE [facility] Comment on above: Performed By: #### U A ####[facility] Gxbekqnavc65[address] [place], [place] [address]Dr. Airam Tripathi Hemoglobin Ql (U) Negative Normal NEGATIVE [facility] Comment on above: Performed By: #### U A ####[facility] Ynpyzkzdxj5713[address] [place], [place] [address]Dr. Airam Tripathi Ketones Ql (U) Negative Normal NEGATIVE [facility] Comment on above: Performed By: #### U A ####[facility] Axteooyvsk012[address] [place], [place] [address]Dr. Airam Tripathi LEUKOCYTES TRACE Abnormal NEGATIVE [facility] Comment on above: Performed By: #### U A ####[facility] Ojqghnfzqm178[address] [place], [place] [address]Dr. Airam Tripathi Nitrite Ql (U) Negative Normal NEGATIVE [facility] Comment on above: Performed By: #### U A ####[facility] Fbktdkmjor173[address] [place], [place] [address]Dr. Airam Tripathi pH (U) 5.5 [pH] Normal 5-9 [facility] Comment on above: Performed By: #### U A ####[facility] Iqxgjvoshd523[address] [place], [place] [address]Dr. Airam Tripathi SPEC GRAVITY 1.010 Normal 1.005-<=1.02 5 [facility] Comment on above: Performed By: #### U A ####[facility] Znkykmdzpr585[address] [place], [place] [address]Dr. Airam Tripathi UA PROTEIN Negative Normal NEGATIVE/ TRACE [facility] Comment on above: Performed By: #### U A ####[facility] Cokmcnhvgq5849 [place] [address]Dr. Airam Tripathi Urobilinogen Qn (U) 0.2 {Ligia'U}/dL Normal 0.2 - 1. 0 [facility] Comment on above: Performed By: #### U A ####[facility] Ywsroakqkc874[address] [place], [place] [address]Dr. Airam Tripathi URIC ACID SERUMon 09-19-2022 Urate [Mass/Vol] 6.9 mg/dL Critically high 2.6-6.0 [facility] Comment on above: Performed By: #### U TRESSA ####[facility] Jaifcbhegk400[address] [place], [place] [address]Dr. Airam Tripathi URINE T PROTEIN CREAT RATIOo n 09-19-2022 UR TOTAL PROTEIN <6.0 Normal <=12.0 [facility] Comment on above: Performed By: #### U RTPCR ####[facility] Wcgysmwaij276[address] [place], [place] [address]Dr. Airam Tripathi URINE CREAT 15.12 mg/dL Critically low 20.00-300.00 [facility] Comment on above: Performed By: #### U RTPCR ####[facility] Dujbwslwxx458[address] [place], [place] [address]Dr. Airam Tripathi VITAMIN D 25 OHon 09-19-2022 VIT D 25-OH 75.9 ng/mL Normal [facility] Comment on above: Performed By: #### V ITAD ####[facility] Wdnqltibff7319[address] [place], [place] [address]Dr. Airam Tripathi VIT D RANGES SEE BELOW Normal [facility] Comment on above: Result Comment: <20 ng/mL Vit D deficient 20 - <30 ng/mL Vit D insufficient 30 - 100 ng/mL Vit D sufficient >100 ng/mL Potential Toxicity Performed By: #### V ITAD ####[facility] Hnymhnbxzv760[address] [place], [place] [address]Dr. Airam Tripathi OSMOLALITYon 09-14-2022 Osmolality [Osmolality] 272 mosm/kg Critically low 275-295 [facility] Comment on above: Performed By: #### O SMO ####[facility] Aaqhlivfkz914[address] [place], [place] [address]Dr. Airam Tripathi CBC AUTO DIFFon 09-12-2022 BASO # 0.0 103/ul Normal 0.0-0.1 [facility] Comment on above: Performed By: #### C BC ####[facility] Pjdmngwcry998[address] [place], [place] [address]Dr. Airam Tripathi Basophils/100 WBC (Bld) 0.5 % Normal 0.2-2.0 [facility] Comment on above: Performed By: #### C BC ####[facility] Guwldwjocr088[address] [place], [place] [address]Dr. Airam Tripathi EO # 0.2 103/ul Normal 0.0-0.7 [facility] Comment on above: Performed By: #### C BC ####[facility] Dizlnabkvg689[address] [place], [place] [address]Dr. Airam Tripathi Eosinophils/100 WBC (Bld) 2.4 % Normal 0.9-7.0 [facility] Comment on above: Performed By: #### C BC ####[facility] Nmxnspmezd8918[address] [place], [place] [address]Dr. Airam Tripathi Erythrocyte distribution width (RBC) [Ratio] 14.8 % Normal 11.0-15.0 [facility] Comment on above: Performed By: #### C BC ####[facility] Vccjkrzyzh379[address] [place], [place] [address]Dr. Airam Tripathi Hematocrit (Bld) [Volume fraction] 32.6 % Critically low 36.0-48.0 [facility] Comment on above: Performed By: #### C BC ####[facility] Zqjwquplxc905[address] [place], [place] [address]Dr. Airam Tripathi Hemoglobin (Bld) [Mass/Vol] 10.1 g/dL Critically low 12.0-16.0 [facility] Comment on above: Performed By: #### C BC ####[facility] Atrovzwvqp394[address] [place], [place] [address]Dr. Airam Tripathi IG # 0.05 10e3/ul Critically high 0.00-0.03 [facility] Comment on above: Performed By: #### C BC ####[facility] Ktzviamcfg1529 [place] [address]DrKianna Airam Deuce IG % 0.7 % Critically high 0.0-0.5 [facility] Comment on above: Performed By: #### C BC ####[facility] Jzrlksgzel0162 [place] [address]DrKianna Airam Deuce LYMPH # 1.9 103/ul Normal 1.2-3.8 [facility] Comment on above: Performed By: #### C BC ####[facility] Xzhmjjpklk[address] [place], [place] [address]DrKianna Tripathi Lymphocytes/100 WBC (Bld) 24.7 % Normal 20.5-60.0 [facility] Comment on above: Performed By: #### C BC ####[facility] Hfogxaawwm8[address] [place], [place] [address]DrKianna Selenaneil Tripathi MANUAL DIFF REQ NO Normal [facility] Comment on above: Performed By: #### C BC ####[facility] Eispyjisre[address] [place], [place] [address]DrKianna Airam Deuce MCH (RBC) [Entitic mass] 28.0 pg Normal 26.7-34.0 [facility] Comment on above: Performed By: #### C BC ####[facility] Xlnyorgywf17[address] [place], [place] [address]DrKianna Waltersneil Deuce MCHC (RBC) [Mass/Vol] 31.0 g/dL Normal 29.9-35.2 [facility] Comment on above: Performed By: #### C BC ####[facility] Wsdffbbcry[address] [place], [place] [address]DrKianna Selenaneil Tripathi MCV (RBC) [Entitic vol] 90.3 fL Normal 81.0-99.0 [facility] Comment on above: Performed By: #### C BC ####[facility] Qmvwfriqnn346[address] [place], [place] [address]DrKianna Tripathi MONO # 0.5 103/ul Normal 0.3-0.8 [facility] Comment on above: Performed By: #### C BC ####[facility] Iujqpldcrx9323 [place] [address]Dr. Airam Tripathi Monocytes/100 WBC (Bld) 6.0 % Normal 1.7-12.0 [facility] Comment on above: Performed By: #### C BC ####[facility] Penshewjvo5702 [place] [address]Dr. Airam Tripathi NEUT # 5.0 103/ul Normal 1.4-6.5 [facility] Comment on above: Performed By: #### C BC ####[facility] Xbgavhqhck2613 [place] [address]Dr. Airam Tripathi Neutrophils/100 WBC (Bld) 65.7 % Normal 43.0-75.0 [facility] Comment on above: Performed By: #### C BC ####[facility] Siuuzewyli[address] [place], [place] [address]Dr. Airam Tripathi Platelet mean volume (Bld) [Entitic vol] 9.5 fL Normal 9.5-13.5 [facility] Comment on above: Performed By: #### C BC ####[facility] Usqoclqctu[address] [place], [place] [address]Dr. Airam Tripathi PLT 307 103/ul Normal 150-450 [facility] Comment on above: Performed By: #### C BC ####[facility] Eqjaxcscsz[address] [place] [address]Dr. Airam Tripathi RBC 3.61 106/ul Critically low 4.20-5.40 [facility] Comment on above: Performed By: #### C BC ####[facility] Bsoqdrdndz967[address] [place], [place] [address]Dr. Airam Tripathi WBC 7.5 103/ul Normal 4.0-11.0 [facility] Comment on above: Performed By: #### C BC ####[facility] Ijjbsntrcr1246 [place] [address]DrKianna Tripathi PROF 14(COMP METB)on 023 Albumin [Mass/Vol] 3.5 g/dL Normal 3.4-5.0 [facility] Comment on above: Performed By: #### C MP ####[facility] Knbbqdfjak[address] [place] [address]Dr. Selenaneil Deuce Albumin/Globulin [Mass ratio] 1.1 {ratio} Normal [facility] Comment on above: Performed By: #### C MP ####[facility] Arddioihqk13[address] [place] [address]Dr. Airam Tripathi ALP [Catalytic activity/Vol] 126 U/L Critically high 46-116 [facility] Comment on above: Performed By: #### C MP ####[facility] Ytcdmceqpc9[address] [place], [place] [address]Dr. Airam Tripathi ALT [Catalytic activity/Vol] 18 U/L Normal 14-59 [facility] Comment on above: Performed By: #### C MP ####[facility] Kjvqxhcrjn156[address] [place], [place] [address]Dr. Airam Tripathi Anion gap [Moles/Vol] 11.1 mmol/L Normal [facility] Comment on above: Performed By: #### C MP ####[facility] Uoubuwyhas636[address] [place], [place] [address]Dr. Airam Tripathi AST [Catalytic activity/Vol] 26 U/L Normal 15-37 [facility] Comment on above: Performed By: #### C MP ####[facility] Rjldgdltci046[address] [place], [place] [address]Dr. Airam Tripathi Bilirubin [Mass/Vol] 0.3 mg/dL Normal 0.2-1.0 [facility] Comment on above: Performed By: #### C MP ####[facility] Wijbvxnrkc4219[address] [place], [place] [address]Dr. Airam Tripathi Calcium [Mass/Vol] 8.5 mg/dL Normal 8.5-10.1 [facility] Comment on above: Performed By: #### C MP ####[facility] Hjcqjrpoav9[address] [place], [place] [address]Dr. Airam Tripathi Chloride [Moles/Vol] 98 mmol/L Normal 98-107 [facility] Comment on above: Performed By: #### C MP ####[facility] Fxudlqufsj6[address] [place] [id number]. Airam Tripathi CO2 [Moles/Vol] 23.9 mmol/L Normal 21.0-32.0 [facility] Comment on above: Performed By: #### C MP ####[facility] Mvvruennez6048 [place] [id number]. Airam Tripathi Creatinine [Mass/Vol] 1.40 mg/dL Critically high 0.55-1.02 [facility] Comment on above: Performed By: #### C MP ####[facility] Hkofsadumb8475 [place] [id number]. Airam Tripathi EGFR-AF ROMANIAN 46 mL/min/1.73m2 Critically low >=60 [facility] Comment on above: Performed By: #### C MP ####[facility] Zsktuusbtc9752 [place] [address]Dr. Airam Deuce EGFR-NON AF ROMANIAN 38 mL/min/1.73m2 Critically low >=60 [facility] Comment on above: Performed By: #### C MP ####[facility] Fnjbhatfli7067 [place] [address]Dr. Airam Deuce Globulin (S) [Mass/Vol] 3.3 g/dL Normal [facility] Comment on above: Performed By: #### C MP ####[facility] Wcufhkqxco1360 [place] [address]Dr. Airam Deuce Glucose [Mass/Vol] 72 mg/dL Critically low 74-106 [facility] Comment on above: Performed By: #### C MP ####[facility] Nigghzdbku5790 [place] [id number]. Airam Deuce Potassium [Moles/Vol] 5.0 mmol/L Normal 3.5-5.1 [facility] Comment on above: Performed By: #### C MP ####[facility] Jwaqquecqb8703 [place] [id number]. Selenaneil Tripathi Protein [Mass/Vol] 6.8 g/dL Normal 6.4-8.2 [facility] Comment on above: Performed By: #### C MP ####[facility] Sdldyhcxnm529[address] [place], [place] [address]Dr. Airam Tripathi Sodium [Moles/Vol] 128 mmol/L Critically low 136-145 [facility] Comment on above: Performed By: #### C MP ####[facility] Orfrabdlwy2101[address] [place], [place] [address]Dr. Airam Deuce Urea nitrogen [Mass/Vol] 27.0 mg/dL Critically high 7.0-18.0 [facility] Comment on above: Performed By: #### C MP ####[facility] Uqzopbjtvr665[address] [place], [place] [address]Dr. Airam Deuce Urea nitrogen/Creatinine [Mass ratio] 19.3 mg/mg Normal [facility] Comment on above: Performed By: #### C MP ####[facility] Ajnbxwhphe527[address] [place], [place] [address]DrKianna Airam Deuce OSMOLALITYon 09-10-2022 Osmolality [Osmolality] 275 mosm/kg Normal 275-295 [facility] Comment on above: Performed By: #### O SMO ####[facility] Ddvkatqtpt496[address] [place], [place] [address]Dr. Airam Deuce CBC AUTO DIFFon 09-08-2022 BASO # 0.0 103/ul Normal 0.0-0.1 [facility] Comment on above: Performed By: #### C BC ####[facility] Hccwbvxawq379[address] [place], [place] [address]Dr. Airam Deuce Basophils/100 WBC (Bld) 0.5 % Normal 0.2-2.0 [facility] Comment on above: Performed By: #### C BC ####[facility] Qnxjxswahw960207 [address] [place], [place] [address]Dr. Airam Tripathi EO # 0.1 103/ul Normal 0.0-0.7 [facility] Comment on above: Performed By: #### C BC ####[facility] Ozilczgjjs589907 [address] [place], [place] [address]Dr. Airam Tripathi Eosinophils/100 WBC (Bld) 1.7 % Normal 0.9-7.0 [facility] Comment on above: Performed By: #### C BC ####[facility] Vboljclbio659207 [address] [place], [place] [address]Dr. Airam Tripathi Erythrocyte distribution width (RBC) [Ratio] 14.7 % Normal 11.0-15.0 [facility] Comment on above: Performed By: #### C BC ####[facility] Qxumoorxqr108307 [address] [place], [place] [address]Dr. Airam Tripathi Hematocrit (Bld) [Volume fraction] 30.3 % Critically low 36.0-48.0 [facility] Comment on above: Performed By: #### C BC ####[facility] Rklqhmkbft6601[address] [place], [place] [address]Dr. Airam Tripathi Hemoglobin (Bld) [Mass/Vol] 9.3 g/dL Critically low 12.0-16.0 [facility] Comment on above: Performed By: #### C BC ####[facility] Xggxfldltu969807 [address] [place], [place] [address]Dr. Airam Tripathi IG # 0.03 10e3/ul Normal 0.00-0.03 [facility] Comment on above: Performed By: #### C BC ####[facility] Yxjeyutemi864[address] [place], [place] [address]Dr. Airam Tripathi IG % 0.5 % Normal 0.0-0.5 [facility] Comment on above: Performed By: #### C BC ####[facility] Dulkcnsugd311[address] [place], [place] [address]Dr. Airam Tripathi LYMPH # 0.9 103/ul Critically low 1.2-3.8 [facility] Comment on above: Performed By: #### C BC ####[facility] Bpsmqoijtn901707 [address] [place], [place] [address]Dr. Airam Tripathi Lymphocytes/100 WBC (Bld) 13.6 % Critically low 20.5-60.0 [facility] Comment on above: Performed By: #### C BC ####[facility] Roytaoftpp390[address] [place], [place] [address]Dr. Airam Tripathi MANUAL DIFF REQ NO Normal [facility] Comment on above: Performed By: #### C BC ####[facility] Pacwebtztj77[address] [place] [address]DrKianna Tripathi MCH (RBC) [Entitic mass] 27.4 pg Normal 26.7-34.0 [facility] Comment on above: Performed By: #### C BC ####[facility] Gxbwkpezox287207 [address] [place], [place] [address]DrKianna Tripathi MCHC (RBC) [Mass/Vol] 30.7 g/dL Normal 29.9-35.2 [facility] Comment on above: Performed By: #### C BC ####[facility] Ngcvsxfwrp087307 [address] [place], [place] [address]DrKianna Tripathi MCV (RBC) [Entitic vol] 89.4 fL Normal 81.0-99.0 [facility] Comment on above: Performed By: #### C BC ####[facility] Ifnakucoly069907 [address] [place], [place] [address]DrKianna Tripathi MONO # 0.5 103/ul Normal 0.3-0.8 [facility] Comment on above: Performed By: #### C BC ####[facility] Zwmhdxtutx216[address] [place], [place] [address]DrKianna Tripathi Monocytes/100 WBC (Bld) 8.0 % Normal 1.7-12.0 [facility] Comment on above: Performed By: #### C BC ####[facility] Uzqnlkkczs119507 [address] [place], [place] [address]DrKianna Tripathi NEUT # 5.0 103/ul Normal 1.4-6.5 [facility] Comment on above: Performed By: #### C BC ####[facility] Flbrzngrdp860507 [address] [place], [place] [address]DrKianna Tripathi Neutrophils/100 WBC (Bld) 75.7 % Critically high 43.0-75.0 [facility] Comment on above: Performed By: #### C BC ####[facility] Oabnxnikrg561507 [address] [place], [place] [address]DrKianna Tripathi Platelet mean volume (Bld) [Entitic vol] 10.4 fL Normal 9.5-13.5 [facility] Comment on above: Performed By: #### C BC ####[facility] Ycgayfofep4097 [place] [address]Dr. Airam Tripathi PLT 315 103/ul Normal 150-450 [facility] Comment on above: Performed By: #### C BC ####[facility] Buxyddzgqa6845 [place] [address]Dr. Airam Tripathi RBC 3.39 106/ul Critically low 4.20-5.40 [facility] Comment on above: Performed By: #### C BC ####[facility] Hbezceyttl8484 [place] [address]Dr. Airam Tripathi WBC 6.5 103/ul Normal 4.0-11.0 [facility] Comment on above: Performed By: #### C BC ####[facility] Ihsdpsvtmp[address]14[address] [place], [place] [address]DrKianna Tripathi PROF 14(COMP METB)on 023 Albumin [Mass/Vol] 3.1 g/dL Critically low 3.4-5.0 [facility] Comment on above: Performed By: #### C MP ####[facility] Otmotjtqmp723307 [address] [place], [place] [address]Dr. Airam Tripathi Albumin/Globulin [Mass ratio] 1.0 {ratio} Normal [facility] Comment on above: Performed By: #### C MP ####[facility] Jfglfxeqkt9394 [place] [address]DrKianna Tripathi ALP [Catalytic activity/Vol] 126 U/L Critically high 46-116 [facility] Comment on above: Performed By: #### C MP ####[facility] Milpftmhsj002207 [address] [place], [place] [address]DrKianna Tripathi ALT [Catalytic activity/Vol] 18 U/L Normal 14-59 [facility] Comment on above: Performed By: #### C MP ####[facility] Lbolexziug913207 [address] [place], [place] [address]DrKianna Tripathi Anion gap [Moles/Vol] 11.4 mmol/L Normal [facility] Comment on above: Performed By: #### C MP ####[facility] Enovwmzclr1225 [place] [address]Dr. Airam Deuce AST [Catalytic activity/Vol] 25 U/L Normal 15-37 [facility] Comment on above: Performed By: #### C MP ####[facility] Mfdvnxbzwj34260[address] [place], [place] [address]Dr. Airam Tripathi Bilirubin [Mass/Vol] 0.3 mg/dL Normal 0.2-1.0 [facility] Comment on above: Performed By: #### C MP ####[facility] Darwngpscq7899[address] [place], [place] [address]Dr. Airam Tripathi Calcium [Mass/Vol] 8.6 mg/dL Normal 8.5-10.1 [facility] Comment on above: Performed By: #### C MP ####[facility] Lstptsjisf108[address] [place], [place] [address]Dr. Airam Tripathi Chloride [Moles/Vol] 97 mmol/L Critically low 98-107 [facility] Comment on above: Performed By: #### C MP ####[facility] Jiuxirhhys278[address] [place], [place] [address]Dr. Airam Tripathi CO2 [Moles/Vol] 26.1 mmol/L Normal 21.0-32.0 [facility] Comment on above: Performed By: #### C MP ####[facility] Wchhnccipg886[address] [place], [place] [address]Dr. Airam Tripathi Creatinine [Mass/Vol] 1.07 mg/dL Critically high 0.55-1.02 [facility] Comment on above: Performed By: #### C MP ####[facility] Zzokvomobj645[address] [place], [place] [address]Dr. Airam Tripathi EGFR-AF ROMANIAN >60 Normal >=60 [facility] Comment on above: Performed By: #### C MP ####[facility] Qnkmpryhck9150 [place] [address]Dr. Airam Tripathi EGFR-NON AF ROMANIAN 52 mL/min/1.73m2 Critically low >=60 [facility] Comment on above: Performed By: #### C MP ####[facility] Kwulldkmxp9296 [place] [address]Dr. Airam Tripathi Globulin (S) [Mass/Vol] 3.2 g/dL Normal [facility] Comment on above: Performed By: #### C MP ####[facility] Vogjkzmrys5393 [place] [id number]. Airam Tripathi Glucose [Mass/Vol] 83 mg/dL Normal 74-106 [facility] Comment on above: Performed By: #### C MP ####[facility] Qezduzfrgq2782 [place] [address]Dr. Airam Deuce Potassium [Moles/Vol] 5.5 mmol/L Critically high 3.5-5.1 [facility] Comment on above: Performed By: #### C MP ####[facility] Qymzwkspaf3018 [place] [address]Dr. Airam Deuce Protein [Mass/Vol] 6.3 g/dL Critically low 6.4-8.2 [facility] Comment on above: Performed By: #### C MP ####[facility] Dptuycgwjl5698 [place] [address]Dr. Airam Tripathi Sodium [Moles/Vol] 129 mmol/L Critically low 136-145 [facility] Comment on above: Performed By: #### C MP ####[facility] Luzxqtcxru6805 [place] [address]Dr. Airam Deuce Urea nitrogen [Mass/Vol] 37.0 mg/dL Critically high 7.0-18.0 [facility] Comment on above: Performed By: #### C MP ####[facility] Klkyvxhkdf4731 [place] [address]Dr. Airam Deuce Urea nitrogen/Creatinine [Mass ratio] 34.6 mg/mg Normal [facility] Comment on above: Performed By: #### C MP ####[facility] Nfjtbqhlml5373 [place] [id number]. Airam Deuce OSMOLALITYon 09-02-2022 Osmolality [Osmolality] 279 mosm/kg Normal 275-295 [facility] Comment on above: Performed By: #### O SMO ####[facility] Fvpmoirdhm4669 [place] [address]DrKianna Tripathi CBC AUTO DIFFon 08-31-2022 BASO # 0.0 103/ul Normal 0.0-0.1 [facility] Comment on above: Performed By: #### C BC ####[facility] Ypekjyaxhf2975 [place] [address]DrKianna Tripathi Basophils/100 WBC (Bld) 0.4 % Normal 0.2-2.0 [facility] Comment on above: Performed By: #### C BC ####[facility] Sfzvmlmazw439[address] [place], [place] [address]DrKianna Tripathi EO # 0.2 103/ul Normal 0.0-0.7 [facility] Comment on above: Performed By: #### C BC ####[facility] Uwghyooenx6119[address] [place], [place] [address]DrKianna Tripathi Eosinophils/100 WBC (Bld) 3.2 % Normal 0.9-7.0 [facility] Comment on above: Performed By: #### C BC ####[facility] Zdyeodpptq438[address] [place], [place] [address]DrKianna Tripathi Erythrocyte distribution width (RBC) [Ratio] 14.4 % Normal 11.0-15.0 [facility] Comment on above: Performed By: #### C BC ####[facility] Caovhjemlv450[address] [place], [place] [address]DrKianna Tripathi Hematocrit (Bld) [Volume fraction] 27.8 % Critically low 36.0-48.0 [facility] Comment on above: Performed By: #### C BC ####[facility] Djtoslxfih088207 [address] [place], [place] [address]DrKianna Tripathi Hemoglobin (Bld) [Mass/Vol] 8.7 g/dL Critically low 12.0-16.0 [facility] Comment on above: Performed By: #### C BC ####[facility] Gqlhwwsvsj67230[address] [place], [place] [address]DrKianna Tripathi IG # 0.05 10e3/ul Critically high 0.00-0.03 [facility] Comment on above: Performed By: #### C BC ####[facility] Wosgbgtlot9752 [place] [address]DrKianna Tripathi IG % 0.7 % Critically high 0.0-0.5 [facility] Comment on above: Performed By: #### C BC ####[facility] Zbwsrgfdgy6759 [place] [address]DrKianna Tripathi LYMPH # 1.7 103/ul Normal 1.2-3.8 [facility] Comment on above: Performed By: #### C BC ####[facility] Zfqztphvnm9601[address] [place], [place] [address]DrKianna Tripathi Lymphocytes/100 WBC (Bld) 23.6 % Normal 20.5-60.0 [facility] Comment on above: Performed By: #### C BC ####[facility] Ovyiozgkli3827[address] [place], [place] [address]DrKianna Tripathi MANUAL DIFF REQ NO Normal [facility] Comment on above: Performed By: #### C BC ####[facility] Iluimpgspf337[address] [place], [place] [address]DrKianna Tripathi MCH (RBC) [Entitic mass] 27.8 pg Normal 26.7-34.0 [facility] Comment on above: Performed By: #### C BC ####[facility] Montlptpxo157307 [address] [place], [place] [address]DrKianna Tripathi MCHC (RBC) [Mass/Vol] 31.3 g/dL Normal 29.9-35.2 [facility] Comment on above: Performed By: #### C BC ####[facility] Jpdcfugpca9291 [place] [address]DrKianna Tripathi MCV (RBC) [Entitic vol] 88.8 fL Normal 81.0-99.0 [facility] Comment on above: Performed By: #### C BC ####[facility] Aobojaigkn966[address] [place], [place] [address]DrKianna Tripathi MONO # 0.5 103/ul Normal 0.3-0.8 [facility] Comment on above: Performed By: #### C BC ####[facility] Srvhdaxfcz2584 [place] [address]DrKianna Tripathi Monocytes/100 WBC (Bld) 6.9 % Normal 1.7-12.0 [facility] Comment on above: Performed By: #### C BC ####[facility] Wwrtwyvsvp5815[address] [place], [place] [address]DrKianna Tripathi NEUT # 4.7 103/ul Normal 1.4-6.5 [facility] Comment on above: Performed By: #### C BC ####[facility] Hlspbngger2954 [place] [address]DrKianna Airam Tripathi Neutrophils/100 WBC (Bld) 65.2 % Normal 43.0-75.0 [facility] Comment on above: Performed By: #### C BC ####[facility] Wlzoisflez757[address] [place], [place] [address]DrKianna Airam Tripathi Platelet mean volume (Bld) [Entitic vol] 9.8 fL Normal 9.5-13.5 [facility] Comment on above: Performed By: #### C BC ####[facility] Mjbhnznorb354[address] [place], [place] [address]DrKianna Airam Tripathi PLT 225 103/ul Normal 150-450 [facility] Comment on above: Performed By: #### C BC ####[facility] Paydckepxs8[address] [place], [place] [address]DrKianna Airam Tripathi RBC 3.13 106/ul Critically low 4.20-5.40 [facility] Comment on above: Performed By: #### C BC ####[facility] Vhnwmilwex336[address] [place], [place] [address]DrKianna Airam Tripathi WBC 7.3 103/ul Normal 4.0-11.0 [facility] Comment on above: Performed By: #### C BC ####[facility] Pfuidbyysm414[address] [place], [place] [address]DrKianna Tripathi PROF 14(COMP METB)on 023 Albumin [Mass/Vol] 3.0 g/dL Critically low 3.4-5.0 [facility] Comment on above: Performed By: #### C MP ####[facility] Ydxazjlqfc4484 [place] [address]Dr. Airam Tripathi Albumin/Globulin [Mass ratio] 1.1 {ratio} Normal [facility] Comment on above: Performed By: #### C MP ####[facility] Aajahsdihw6894 [place] [address]Dr. Airam Tripathi ALP [Catalytic activity/Vol] 132 U/L Critically high 46-116 [facility] Comment on above: Performed By: #### C MP ####[facility] Pbyzqeiped36360[address] [place], [place] [address]Dr. Airam Tripathi ALT [Catalytic activity/Vol] 20 U/L Normal 14-59 [facility] Comment on above: Performed By: #### C MP ####[facility] Dmmwbecljn05450[address] [place], [place] [address]Dr. Airam Tripathi Anion gap [Moles/Vol] 9.5 mmol/L Normal [facility] Comment on above: Performed By: #### C MP ####[facility] Byjacrlfrw844[address] [place], [place] [address]Dr. Airam Tripathi AST [Catalytic activity/Vol] 25 U/L Normal 15-37 [facility] Comment on above: Performed By: #### C MP ####[facility] Zwhivyrwru865707 [address] [place], [place] [address]Dr. Airam Tripathi Bilirubin [Mass/Vol] 0.2 mg/dL Normal 0.2-1.0 [facility] Comment on above: Performed By: #### C MP ####[facility] Ajoyvkwxdz816107 [address] [place], [place] [address]Dr. Airam Tripathi Calcium [Mass/Vol] 7.9 mg/dL Critically low 8.5-10.1 [facility] Comment on above: Performed By: #### C MP ####[facility] Zdnxqpvwlk185507 [address] [place], [place] [address]Dr. Airam Tripathi Chloride [Moles/Vol] 97 mmol/L Critically low 98-107 [facility] Comment on above: Performed By: #### C MP ####[facility] Dflbfebjuo7725 [place] [address]Dr. Selenaneil Deuce CO2 [Moles/Vol] 27.3 mmol/L Normal 21.0-32.0 [facility] Comment on above: Performed By: #### C MP ####[facility] Iykurokviu1005 [place] [address]Dr. Airam Tripathi Creatinine [Mass/Vol] 1.58 mg/dL Critically high 0.55-1.02 [facility] Comment on above: Performed By: #### C MP ####[facility] Fmwiyysroa829507 [address] [place], [place] [address]Dr. Airam Tripathi EGFR-AF ROMANIAN 40 mL/min/1.73m2 Critically low >=60 [facility] Comment on above: Performed By: #### C MP ####[facility] Kvwrilebia205[address] [place], [place] [address]Dr. Airam Tripathi EGFR-NON AF ROMANIAN 33 mL/min/1.73m2 Critically low >=60 [facility] Comment on above: Performed By: #### C MP ####[facility] Yrnfudmjhr905[address] [place], [place] [address]Dr. Airam Tripathi Globulin (S) [Mass/Vol] 2.8 g/dL Normal [facility] Comment on above: Performed By: #### C MP ####[facility] Zxdkqpnsqm047[address] [place], [place] [address]Dr. Airam Tripathi Glucose [Mass/Vol] 111 mg/dL Critically high 74-106 [facility] Comment on above: Performed By: #### C MP ####[facility] Jglpvsjhyz974[address] [place], [place] [address]Dr. Airam Tripathi Potassium [Moles/Vol] 4.8 mmol/L Normal 3.5-5.1 [facility] Comment on above: Performed By: #### C MP ####[facility] Puhckruaya695[address] [place], [place] [address]Dr. Airam Tripathi Protein [Mass/Vol] 5.8 g/dL Critically low 6.4-8.2 [facility] Comment on above: Performed By: #### C MP ####[facility] Ltgvicgtbd7301[address] [place], [place] [address]DrKianna Tripathi Sodium [Moles/Vol] 129 mmol/L Critically low 136-145 [facility] Comment on above: Performed By: #### C MP ####[facility] Tezpgvkutz736[address] [place], [place] [address]DrKianna Tripathi Urea nitrogen [Mass/Vol] 44.0 mg/dL Critically high 7.0-18.0 [facility] Comment on above: Performed By: #### C MP ####[facility] Lklglgrmod879[address] [place], [place] [address]Dr. Airam Tripathi Urea nitrogen/Creatinine [Mass ratio] 27.8 mg/mg Normal [facility] Comment on above: Performed By: #### C MP ####[facility] Quoxqvfcwx098[address] [place], [place] [address]DrKianna Tripathi OSMOLALITYon 08-28-2022 Osmolality [Osmolality] 288 mosm/kg Normal 275-295 [facility] Comment on above: Performed By: #### O SMO ####[facility] Ozfrjufeaa332[address] [place], [place] [address]Dr. Airam Tripathi CBC AUTO DIFFon 08-25-2022 BASO # 0.0 103/ul Normal 0.0-0.1 [facility] Comment on above: Performed By: #### C BC ####[facility] Junllygcnh[address] [place], [place] [address]Dr. Airam Tripathi Basophils/100 WBC (Bld) 0.5 % Normal 0.2-2.0 [facility] Comment on above: Performed By: #### C BC ####[facility] Mwyngpkylx336[address] [place], [place] [address]DrKianna Tripathi EO # 0.4 103/ul Normal 0.0-0.7 [facility] Comment on above: Performed By: #### C BC ####[facility] Tidjxpqaty[address] [place], [place] [address]DrKianna Tripathi Eosinophils/100 WBC (Bld) 4.8 % Normal 0.9-7.0 [facility] Comment on above: Performed By: #### C BC ####[facility] [address]ieqcgokw[address] [place] [address]Dr. Airam Tripathi Erythrocyte distribution width (RBC) [Ratio] 14.2 % Normal 11.0-15.0 [facility] Comment on above: Performed By: #### C BC ####[facility] Jolnrdzlvw830[address] [place], [place] [address]Dr. Airam Tripathi Hematocrit (Bld) [Volume fraction] 31.1 % Critically low 36.0-48.0 [facility] Comment on above: Performed By: #### C BC ####[facility] Ktraaiaxgi644[address] [place], [place] [address]Dr. Airam Tripathi Hemoglobin (Bld) [Mass/Vol] 9.7 g/dL Critically low 12.0-16.0 [facility] Comment on above: Performed By: #### C BC ####[facility] Qcdftgktzq480[address] [place], [place] [address]Dr. Airam Tripathi IG # 0.05 10e3/ul Critically high 0.00-0.03 [facility] Comment on above: Performed By: #### C BC ####[facility] Yufnbfxith140[address] [place], [place] [address]Dr. Airam Tripathi IG % 0.6 % Critically high 0.0-0.5 [facility] Comment on above: Performed By: #### C BC ####[facility] Cobylkgqwm264[address] [place], [place] [address]Dr. Airam Tripathi LYMPH # 1.7 103/ul Normal 1.2-3.8 [facility] Comment on above: Performed By: #### C BC ####[facility] Gvhkgpaozz84380[address] [place], [place] [address]Dr. Airam Tripathi Lymphocytes/100 WBC (Bld) 19.6 % Critically low 20.5-60.0 [facility] Comment on above: Performed By: #### C BC ####[facility] Wjihmvcfve[address] [place] [address]Dr. Airam Deuce MANUAL DIFF REQ NO Normal [facility] Comment on above: Performed By: #### C BC ####[facility] Kswaftdsty64[address] [place] [address]Dr. Airam Tripathi MCH (RBC) [Entitic mass] 28.2 pg Normal 26.7-34.0 [facility] Comment on above: Performed By: #### C BC ####[facility] Dgddupmdkd324[address] [place], [place] [address]Dr. Airam Deuce MCHC (RBC) [Mass/Vol] 31.2 g/dL Normal 29.9-35.2 [facility] Comment on above: Performed By: #### C BC ####[facility] Gbaqyosyoh4916[address] [place], [place] [address]Dr. Selenaneil Tripathi MCV (RBC) [Entitic vol] 90.4 fL Normal 81.0-99.0 [facility] Comment on above: Performed By: #### C BC ####[facility] Huwbjatbqt9837[address] [place], [place] [address]Dr. Airam Deuce MONO # 0.6 103/ul Normal 0.3-0.8 [facility] Comment on above: Performed By: #### C BC ####[facility] Cnqdmcmdlf9[address] [place], [place] [address]Dr. Airam Tripathi Monocytes/100 WBC (Bld) 7.4 % Normal 1.7-12.0 [facility] Comment on above: Performed By: #### C BC ####[facility] Mfayxfpdcg260[address] [place], [place] [address]Dr. Selenaneil Deuce NEUT # 5.8 103/ul Normal 1.4-6.5 [facility] Comment on above: Performed By: #### C BC ####[facility] Yzajlvkmna70[address] [place], [place] [address]Dr. Selenaneil Tripathi Neutrophils/100 WBC (Bld) 67.1 % Normal 43.0-75.0 [facility] Comment on above: Performed By: #### C BC ####[facility] Lulurfryuo818[address] [place], [place] [address]Dr. Airam Tripathi Platelet mean volume (Bld) [Entitic vol] 9.9 fL Normal 9.5-13.5 [facility] Comment on above: Performed By: #### C BC ####[facility] Jbklpdstxh0[address] [place] [address]Dr. Airam Tripathi PLT 320 103/ul Normal 150-450 [facility] Comment on above: Performed By: #### C BC ####[facility] Thrrdzatdw4098 [place] [address]Dr. Airam Tripathi RBC 3.44 106/ul Critically low 4.20-5.40 [facility] Comment on above: Performed By: #### C BC ####[facility] Maioasawmi27[address] [place] [address]Dr. Airam Tripathi WBC 8.6 103/ul Normal 4.0-11.0 [facility] Comment on above: Performed By: #### C BC ####[facility] Fgxxysgmsk7063 [place] [address]DrKianna Tripathi PROF 14(COMP METB)on 023 Albumin [Mass/Vol] 3.4 g/dL Normal 3.4-5.0 [facility] Comment on above: Performed By: #### C MP ####[facility] Pkwdtjnmih044[address] [place] [address]Dr. Airam Tripathi Albumin/Globulin [Mass ratio] 1.1 {ratio} Normal [facility] Comment on above: Performed By: #### C MP ####[facility] Rhyqhnopty18[address] [place] [address]DrKianna Tripathi ALP [Catalytic activity/Vol] 170 U/L Critically high 46-116 [facility] Comment on above: Performed By: #### C MP ####[facility] Sunyfcwkqw4627 [place] [address]DrKianna Tripathi ALT [Catalytic activity/Vol] 22 U/L Normal 14-59 [facility] Comment on above: Performed By: #### C MP ####[facility] Txgvsnlnvj33[address] [place] [address]Dr. Airam Tripathi Anion gap [Moles/Vol] 14.4 mmol/L Normal [facility] Comment on above: Performed By: #### C MP ####[facility] Otxaoyuntk27020[address] [place], [place] [address]Dr. Airam Deuce AST [Catalytic activity/Vol] 25 U/L Normal 15-37 [facility] Comment on above: Performed By: #### C MP ####[facility] Elmfdqcmsn811[address] [place], [place] [address]Dr. Selenaneil Deuce Bilirubin [Mass/Vol] 0.3 mg/dL Normal 0.2-1.0 [facility] Comment on above: Performed By: #### C MP ####[facility] Wjzxnghlha8318[address] [place], [place] [address]Dr. Airam Tripathi Calcium [Mass/Vol] 8.2 mg/dL Critically low 8.5-10.1 [facility] Comment on above: Performed By: #### C MP ####[facility] Awcnyuawta246[address] [place], [place] [address]Dr. Airam Tripathi Chloride [Moles/Vol] 98 mmol/L Normal 98-107 [facility] Comment on above: Performed By: #### C MP ####[facility] Qxixvvqgbd569[address] [place], [place] [address]Dr. Airam Tripathi CO2 [Moles/Vol] 27.8 mmol/L Normal 21.0-32.0 [facility] Comment on above: Performed By: #### C MP ####[facility] Ydkxxywtbd480[address] [place], [place] [address]Dr. Airam Tripathi Creatinine [Mass/Vol] 1.82 mg/dL Critically high 0.55-1.02 [facility] Comment on above: Performed By: #### C MP ####[facility] Eveujajneh934807 [address] [place], [place] [address]Dr. Airam Tripathi EGFR-AF ROMANIAN 34 mL/min/1.73m2 Critically low >=60 [facility] Comment on above: Performed By: #### C MP ####[facility] Ozjvccthzm596[address] [place], [place] [address]Dr. Airam Tripathi EGFR-NON AF ROMANIAN 28 mL/min/1.73m2 Critically low >=60 [facility] Comment on above: Performed By: #### C MP ####[facility] Jwuzzmeytd1343 [place] [address]Dr. Airam Tripathi Globulin (S) [Mass/Vol] 3.2 g/dL Normal [facility] Comment on above: Performed By: #### C MP ####[facility] Yelivuxvkv0343 [place] [address]Dr. Airam Tripathi Glucose [Mass/Vol] 78 mg/dL Normal 74-106 [facility] Comment on above: Performed By: #### C MP ####[facility] Jcvfypbgpq9517[address] [place], [place] [address]Dr. Airam Tripathi Potassium [Moles/Vol] 5.2 mmol/L Critically high 3.5-5.1 [facility] Comment on above: Performed By: #### C MP ####[facility] Ujiadkwmap159[address] [place], [place] [address]Dr. Airam Tripathi Protein [Mass/Vol] 6.6 g/dL Normal 6.4-8.2 [facility] Comment on above: Performed By: #### C MP ####[facility] Bokadjjqip896[address] [place], [place] [address]Dr. Airam Tripathi Sodium [Moles/Vol] 135 mmol/L Critically low 136-145 [facility] Comment on above: Performed By: #### C MP ####[facility] Dcriqlxvzg912[address] [place], [place] [address]Dr. Airam Tripathi Urea nitrogen [Mass/Vol] 51.0 mg/dL Critically high 7.0-18.0 [facility] Comment on above: Performed By: #### C MP ####[facility] Zaelufvjmq457[address] [place], [place] [address]Dr. Airam Tripathi Urea nitrogen/Creatinine [Mass ratio] 28.0 mg/mg Normal [facility] Comment on above: Performed By: #### C MP ####[facility] Umjrxkgbkx090[address] [place], [place] [address]Dr. Airam Tripathi OSMOLALITYon 2023 Osmolality [Osmolality] 280 mosm/kg Normal 275-295 [facility] Comment on above: Performed By: #### O SMO ####[facility] Hybvdbmcof0499[address] [place], [place] [address]Dr. Airam Tripathi CBC AUTO DIFFon 08-16-2022 BASO # 0.0 103/ul Normal 0.0-0.1 [facility] Comment on above: Performed By: #### C BC ####[facility] Tbkmqwpwax9815[address] [place], [place] [address]Dr. Airam Tripathi Basophils/100 WBC (Bld) 0.2 % Normal 0.2-2.0 [facility] Comment on above: Performed By: #### C BC ####[facility] Onohymmgol794[address] [place], [place] [address]Dr. Airam Tripathi EO # 0.2 103/ul Normal 0.0-0.7 [facility] Comment on above: Performed By: #### C BC ####[facility] Xadyodzhxt3401[address] [place], [place] [address]Dr. Airam Tripathi Eosinophils/100 WBC (Bld) 2.4 % Normal 0.9-7.0 [facility] Comment on above: Performed By: #### C BC ####[facility] Tjvoilyazt9914[address] [place], [place] [address]Dr. Airam Tripathi Erythrocyte distribution width (RBC) [Ratio] 14.2 % Normal 11.0-15.0 [facility] Comment on above: Performed By: #### C BC ####[facility] Ynjfqdffhx28[address] [place], [place] [address]Dr. Airam Tripathi Hematocrit (Bld) [Volume fraction] 30.1 % Critically low 36.0-48.0 [facility] Comment on above: Performed By: #### C BC ####[facility] Qyzbtxytrf168[address] [place], [place] [address]Dr. Airam Tripathi Hemoglobin (Bld) [Mass/Vol] 9.2 g/dL Critically low 12.0-16.0 [facility] Comment on above: Performed By: #### C BC ####[facility] Xp[address]ijaqea[address] [place] [id number]. Airam Tripathi IG # 0.04 10e3/ul Critically high 0.00-0.03 [facility] Comment on above: Performed By: #### C BC ####[facility] Uzmqcampbh9045 [place] [address]Dr. Airam Tripathi IG % 0.4 % Normal 0.0-0.5 [facility] Comment on above: Performed By: #### C BC ####[facility] Rlkuqbzkno3641 [place] [address]Dr. Airam Tripathi LYMPH # 0.9 103/ul Critically low 1.2-3.8 [facility] Comment on above: Performed By: #### C BC ####[facility] Beiufipswv9317 [place] [address]Dr. Selenaneil Tripathi Lymphocytes/100 WBC (Bld) 9.3 % Critically low 20.5-60.0 [facility] Comment on above: Performed By: #### C BC ####[facility] Osobcppjms160[address] [place], [place] [address]Dr. Airam Tripathi MANUAL DIFF REQ NO Normal [facility] Comment on above: Performed By: #### C BC ####[facility] Suajkawzdz[address] [place] [address]Dr. Airam Tripathi MCH (RBC) [Entitic mass] 27.7 pg Normal 26.7-34.0 [facility] Comment on above: Performed By: #### C BC ####[facility] Dcddldvkwp[address] [place], [place] [address]Dr. Airam Tripathi MCHC (RBC) [Mass/Vol] 30.6 g/dL Normal 29.9-35.2 [facility] Comment on above: Performed By: #### C BC ####[facility] Acmxnxsmfp456[address] [place], [place] [address]Dr. Airam Tripathi MCV (RBC) [Entitic vol] 90.7 fL Normal 81.0-99.0 [facility] Comment on above: Performed By: #### C BC ####[facility] S[address]ajgdpur[address] [place] [phone]. Airam Tripathi MONO # 0.5 103/ul Normal 0.3-0.8 [facility] Comment on above: Performed By: #### C BC ####[facility] Mxcqsmrkds3646 [place] [phone]. Airam Tripathi Monocytes/100 WBC (Bld) 5.3 % Normal 1.7-12.0 [facility] Comment on above: Performed By: #### C BC ####[facility] Qptiovvnou3224 [place] [phone]. Airam Tripathi NEUT # 7.7 103/ul Critically high 1.4-6.5 [facility] Comment on above: Performed By: #### C BC ####[facility] Jxvayxqtln2630 [place] [phone]. Airam Tripathi Neutrophils/100 WBC (Bld) 82.4 % Critically high 43.0-75.0 [facility] Comment on above: Performed By: #### C BC ####[facility] Rlvzryoobw0212 [place] [phone]. Airam Tripathi Platelet mean volume (Bld) [Entitic vol] 9.8 fL Normal 9.5-13.5 [facility] Comment on above: Performed By: #### C BC ####[facility] Euyfbxqffu26[address] [place] [phone]. Airam Tripathi PLT 285 103/ul Normal 150-450 [facility] Comment on above: Performed By: #### C BC ####[facility] Atvocuvsmb6243 [place] [phone]. Airam Tripathi RBC 3.32 106/ul Critically low 4.20-5.40 [facility] Comment on above: Performed By: #### C BC ####[facility] Fcocjviuij3571 [place] [phone]. Airam Tripathi WBC 9.4 103/ul Normal 4.0-11.0 [facility] Comment on above: Performed By: #### C BC ####[facility] Qnrklvsjoh[address] [place], [place] [address]Dr. Airam Tripathi MRI WRIST RT WO CONon 2022 MRI WRIST RT WO CON Normal [facility] PROF 14(COMP METB)on 023 Albumin [Mass/Vol] 3.1 g/dL Critically low 3.4-5.0 [facility] Comment on above: Performed By: #### C MP ####[facility] Vkhlmjvroi5093 [place] [address]Dr. Airam Tripathi Albumin/Globulin [Mass ratio] 0.9 {ratio} Normal [facility] Comment on above: Performed By: #### C MP ####[facility] Ryqbgvuqkz125[address] [place], [place] [address]Dr. Airam Tripathi ALP [Catalytic activity/Vol] 162 U/L Critically high 46-116 [facility] Comment on above: Performed By: #### C MP ####[facility] Rxlirrqmwy3694 [place] [address]Dr. Airam Tripathi ALT [Catalytic activity/Vol] 19 U/L Normal 14-59 [facility] Comment on above: Performed By: #### C MP ####[facility] Ecfgwfynik[address] [place], [place] [address]Dr. Airam Tripathi Anion gap [Moles/Vol] 13.0 mmol/L Normal [facility] Comment on above: Performed By: #### C MP ####[facility] Fdtsvucjsb478[address] [place], [place] [address]Dr. Airam Tripathi AST [Catalytic activity/Vol] 21 U/L Normal 15-37 [facility] Comment on above: Performed By: #### C MP ####[facility] Mpnkxhgqey2092 [place] [address]Dr. Airam Tripathi Bilirubin [Mass/Vol] 0.3 mg/dL Normal 0.2-1.0 [facility] Comment on above: Performed By: #### C MP ####[facility] Pbbdholion3667 [place] [address]Dr. Airam Tripathi Calcium [Mass/Vol] 8.4 mg/dL Critically low 8.5-10.1 [facility] Comment on above: Performed By: #### C MP ####[facility] Hsnfattvhq6320 [place] [address]Dr. Airam Tripathi Chloride [Moles/Vol] 103 mmol/L Normal 98-107 [facility] Comment on above: Performed By: #### C MP ####[facility] Aguvuivusw2313 [place] [address]Dr. Airam Tripathi CO2 [Moles/Vol] 23.3 mmol/L Normal 21.0-32.0 [facility] Comment on above: Performed By: #### C MP ####[facility] Aeiulzcwku1538 [place] [address]Dr. Airam Tripathi Creatinine [Mass/Vol] 1.02 mg/dL Normal 0.55-1.02 [facility] Comment on above: Performed By: #### C MP ####[facility] Uniunjaxuu80[address] [place], [place] [address]Dr. Airam Tripathi EGFR-AF ROMANIAN >60 Normal >=60 [facility] Comment on above: Performed By: #### C MP ####[facility] Onxjbceiwc7675 [place] [address]Dr. Airam Tripathi EGFR-NON AF ROMANIAN 55 mL/min/1.73m2 Critically low >=60 [facility] Comment on above: Performed By: #### C MP ####[facility] Dqmnidztjz7440 [place] [address]Dr. Airam Tripathi Globulin (S) [Mass/Vol] 3.4 g/dL Normal [facility] Comment on above: Performed By: #### C MP ####[facility] Xaaagxsmma5837 [place] [address]Dr. Airam Tripathi Glucose [Mass/Vol] 88 mg/dL Normal 74-106 [facility] Comment on above: Performed By: #### C MP ####[facility] Bxjdciqcqo4949 [place] [address]Dr. Airam Tripathi Potassium [Moles/Vol] 4.3 mmol/L Normal 3.5-5.1 [facility] Comment on above: Performed By: #### C MP ####[facility] Yruzykpymb0925 [place] [phone]. Airam Tripathi Protein [Mass/Vol] 6.5 g/dL Normal 6.4-8.2 [facility] Comment on above: Performed By: #### C MP ####[facility] Skmpwyjzsl6699 [place] [phone]. Selenaneil Tripathi Sodium [Moles/Vol] 135 mmol/L Critically low 136-145 [facility] Comment on above: Performed By: #### C MP ####[facility] Pnhdzpnbcd2012 [place] [phone]. Selenaneil Tripathi Urea nitrogen [Mass/Vol] 27.0 mg/dL Critically high 7.0-18.0 [facility] Comment on above: Performed By: #### C MP ####[facility] Ktjxlonaut9852 [place] [phone]. Selenaneil Deuce Urea nitrogen/Creatinine [Mass ratio] 26.5 mg/mg Normal [facility] Comment on above: Performed By: #### C MP ####[facility] Mcyblxbaih65[address] [place] [phone]. Selenaneil Tripathi CT HEAD WO CONon 08-06-2022 CT HEAD WO CON Normal [facility] CT LSPINE WO CONon 3 CT LSPINE WO CON Normal [facility] XR HAND RT MIN 3Von 08-06-19 23 XR HAND RT MIN 3V Normal [facility] XR KNEE LT 4V or >on 023 XR KNEE LT 4V or > Normal [facility] XR WRIST RT MIN 3 Von 2022 XR WRIST RT MIN 3 V Normal [facility] OSMOLALITYon 08-05-2022 Osmolality [Osmolality] 282 mosm/kg Normal 275-295 [facility] Comment on above: Performed By: #### O SMO ####[facility] Kscokgptjb16[address] [place] [address]Dr. Selenaneil Deuce CBC AUTO DIFFon 08-03-2022 BASO # 0.0 103/ul Normal 0.0-0.1 [facility] Comment on above: Performed By: #### C BC ####[facility] Wnnnojfyfi2689 [place] [phone]. Airam Tripathi Basophils/100 WBC (Bld) 0.5 % Normal 0.2-2.0 [facility] Comment on above: Performed By: #### C BC ####[facility] Zlxaioacir037[address] [place], [place] [address]Dr. Airam Tripathi EO # 0.5 103/ul Normal 0.0-0.7 [facility] Comment on above: Performed By: #### C BC ####[facility] Qpfuskugrj506307 [address] [place], [place] [address]Dr. Airam Deuce Eosinophils/100 WBC (Bld) 5.2 % Normal 0.9-7.0 [facility] Comment on above: Performed By: #### C BC ####[facility] Ffqfluzlvm740[address] [place], [place] [address]Dr. Airam Tripathi Erythrocyte distribution width (RBC) [Ratio] 14.3 % Normal 11.0-15.0 [facility] Comment on above: Performed By: #### C BC ####[facility] Wsifgxqhsy178[address] [place], [place] [address]Dr. Airam Tripathi Hematocrit (Bld) [Volume fraction] 31.4 % Critically low 36.0-48.0 [facility] Comment on above: Performed By: #### C BC ####[facility] Nvcvplbbdj545[address] [place], [place] [address]Dr. Airam Tripathi Hemoglobin (Bld) [Mass/Vol] 9.5 g/dL Critically low 12.0-16.0 [facility] Comment on above: Performed By: #### C BC ####[facility] Hqcngzdtkx376[address] [place], [place] [address]Dr. Airam Deuce IG # 0.05 10e3/ul Critically high 0.00-0.03 [facility] Comment on above: Performed By: #### C BC ####[facility] Zhktdmhyvr213[address] [place], [place] [address]Dr. Selenaneil Tripathi IG % 0.6 % Critically high 0.0-0.5 [facility] Comment on above: Performed By: #### C BC ####[facility] Cfymlmwrzy0436 [place] [phone]. Selenaneil Tripathi LYMPH # 1.5 103/ul Normal 1.2-3.8 [facility] Comment on above: Performed By: #### C BC ####[facility] Psklqffsyi6576 [place] [phone]. Airam Tripathi Lymphocytes/100 WBC (Bld) 17.6 % Critically low 20.5-60.0 [facility] Comment on above: Performed By: #### C BC ####[facility] Dhknlitkjm[address] [place], [place] [address]Dr. Airam Tripathi MANUAL DIFF REQ NO Normal [facility] Comment on above: Performed By: #### C BC ####[facility] Hmiwdhzfed038[address] [place], [place] [address]Dr. Airam Tripathi MCH (RBC) [Entitic mass] 29.0 pg Normal 26.7-34.0 [facility] Comment on above: Performed By: #### C BC ####[facility] Xajtohjbvm[address] [place], [place] [address]Dr. Selenaneil Tripathi MCHC (RBC) [Mass/Vol] 30.3 g/dL Normal 29.9-35.2 [facility] Comment on above: Performed By: #### C BC ####[facility] Ugacxetmig613[address] [place], [place] [address]Dr. Airam Tripathi MCV (RBC) [Entitic vol] 95.7 fL Normal 81.0-99.0 [facility] Comment on above: Performed By: #### C BC ####[facility] Qypvmhsojx[address] [place], [place] [address]Dr. Airam Tripathi MONO # 0.7 103/ul Normal 0.3-0.8 [facility] Comment on above: Performed By: #### C BC ####[facility] Oxgsfgdfdr269[address] [place], [place] [address]Dr. Airam Tripathi Monocytes/100 WBC (Bld) 8.5 % Normal 1.7-12.0 [facility] Comment on above: Performed By: #### C BC ####[facility] Ceypparmij3221 [place] [phone]. Airam Tripathi NEUT # 5.8 103/ul Normal 1.4-6.5 [facility] Comment on above: Performed By: #### C BC ####[facility] Zazquycwwu5561 [place] [phone]. Airam Tripathi Neutrophils/100 WBC (Bld) 67.6 % Normal 43.0-75.0 [facility] Comment on above: Performed By: #### C BC ####[facility] Dnaqufjznn8538 [place] [address]Dr. Airam Tripathi Platelet mean volume (Bld) [Entitic vol] 9.5 fL Normal 9.5-13.5 [facility] Comment on above: Performed By: #### C BC ####[facility] Nzipjospsc[address] [place], [place] [address]Dr. Airam Tripathi PLT 292 103/ul Normal 150-450 [facility] Comment on above: Performed By: #### C BC ####[facility] T[address]kljnyf23[address] [place] [address]Dr. Airam Tripathi RBC 3.28 106/ul Critically low 4.20-5.40 [facility] Comment on above: Performed By: #### C BC ####[facility] Kdwcxflzby05[address] [place] [address]Dr. Airam Tripathi WBC 8.6 103/ul Normal 4.0-11.0 [facility] Comment on above: Performed By: #### C BC ####[facility] Elvomwfgec6786 [place] [address]Dr. Airam Tripathi PROF 14(COMP METB)on 023 Albumin [Mass/Vol] 3.0 g/dL Critically low 3.4-5.0 [facility] Comment on above: Performed By: #### C MP ####[facility] Roimzatwld5[address] [place] [address]Dr. Airam Tripathi Albumin/Globulin [Mass ratio] 0.9 {ratio} Normal [facility] Comment on above: Performed By: #### C MP ####[facility] Honcgyapsf[address] [place] [address]Dr. Airam Tripathi ALP [Catalytic activity/Vol] 184 U/L Critically high 46-116 [facility] Comment on above: Performed By: #### C MP ####[facility] Pvioaidgxi[address] [place] [address]Dr. Airam Tripathi ALT [Catalytic activity/Vol] 18 U/L Normal 14-59 [facility] Comment on above: Performed By: #### C MP ####[facility] Uezwupolsp[address] [place], [place] [address]Dr. Airam Tripathi Anion gap [Moles/Vol] 11.2 mmol/L Normal [facility] Comment on above: Performed By: #### C MP ####[facility] Yvzoqnclxo84350[address] [place], [place] [address]Dr. Airam Tripathi AST [Catalytic activity/Vol] 19 U/L Normal 15-37 [facility] Comment on above: Performed By: #### C MP ####[facility] Qgjurdlydf596[address] [place], [place] [address]Dr. Airam Tripathi Bilirubin [Mass/Vol] 0.3 mg/dL Normal 0.2-1.0 [facility] Comment on above: Performed By: #### C MP ####[facility] Oasecnfawz712[address] [place], [place] [address]Dr. Airam Tripathi Calcium [Mass/Vol] 8.8 mg/dL Normal 8.5-10.1 [facility] Comment on above: Performed By: #### C MP ####[facility] Qakgzeuont8627[address] [place], [place] [address]Dr. Airam Tripathi Chloride [Moles/Vol] 101 mmol/L Normal 98-107 [facility] Comment on above: Performed By: #### C MP ####[facility] Hencsohnkk898[address] [place], [place] [address]Dr. Airam Tripathi CO2 [Moles/Vol] 25.4 mmol/L Normal 21.0-32.0 [facility] Comment on above: Performed By: #### C MP ####[facility] [address]ogpsba[address] [place] [id number]. Airam Tripathi Creatinine [Mass/Vol] 1.05 mg/dL Critically high 0.55-1.02 [facility] Comment on above: Performed By: #### C MP ####[facility] Guxrkrayva39[address] [place] [id number]. Airam Tripathi EGFR-AF ROMANIAN >60 Normal >=60 [facility] Comment on above: Performed By: #### C MP ####[facility] Vmgiisuohy25[address] [place] [id number]. Airam Tripathi EGFR-NON AF ROMANIAN 53 mL/min/1.73m2 Critically low >=60 [facility] Comment on above: Performed By: #### C MP ####[facility] Hsqajiweiu279[address] [place], [place] [address]Dr. Airam Tripathi Globulin (S) [Mass/Vol] 3.4 g/dL Normal [facility] Comment on above: Performed By: #### C MP ####[facility] Ffpwumjcrn066[address] [place], [place] [address]Dr. Airam Tripathi Glucose [Mass/Vol] 78 mg/dL Normal 74-106 [facility] Comment on above: Performed By: #### C MP ####[facility] Upvqccnlwt430[address] [place], [place] [address]Dr. Airam Tripathi Potassium [Moles/Vol] 4.6 mmol/L Normal 3.5-5.1 [facility] Comment on above: Performed By: #### C MP ####[facility] Cnxlenavwm255[address] [place], [place] [address]Dr. Airam Tripathi Protein [Mass/Vol] 6.4 g/dL Normal 6.4-8.2 [facility] Comment on above: Performed By: #### C MP ####[facility] Pfouagvsgb680[address] [place], [place] [address]Dr. Airam Tripathi Sodium [Moles/Vol] 133 mmol/L Critically low 136-145 [facility] Comment on above: Performed By: #### C MP ####[facility] Elralfwuzn62[address] [place] [id number]. Airam Tripathi Urea nitrogen [Mass/Vol] 26.0 mg/dL Critically high 7.0-18.0 [facility] Comment on above: Performed By: #### C MP ####[facility] Jmeoerpzgh313[address] [place], [place] [address]Dr. Airam Tripathi Urea nitrogen/Creatinine [Mass ratio] 24.8 mg/mg Normal [facility] Comment on above: Performed By: #### C MP ####[facility] Oqiouaeffn697[address] [place], [place] [address]Dr. Airam Tripathi OSMOLALITYon 07-29-2022 Osmolality [Osmolality] 287 mosm/kg Normal 275-295 [facility] Comment on above: Performed By: #### O SMO ####[facility] Zwbijpmqsb008207 [address] [place], [place] [address]Dr. Airam Tripathi CBC AUTO DIFFon 07-27-2022 BASO # 0.0 103/ul Normal 0.0-0.1 [facility] Comment on above: Performed By: #### C BC ####[facility] Yrkhmiehvi809607 [address] [place], [place] [address]Dr. Airam Tripathi Basophils/100 WBC (Bld) 0.4 % Normal 0.2-2.0 [facility] Comment on above: Performed By: #### C BC ####[facility] Sqgihnnkfe419607 [address] [place], [place] [address]Dr. Airam Tripathi EO # 0.2 103/ul Normal 0.0-0.7 [facility] Comment on above: Performed By: #### C BC ####[facility] Serxrtnnkp4919[address] [place], [place] [address]Dr. Airam Tripathi Eosinophils/100 WBC (Bld) 2.6 % Normal 0.9-7.0 [facility] Comment on above: Performed By: #### C BC ####[facility] Oxhhbfjccx365[address] [place], [place] [address]Dr. Airam Tripathi Erythrocyte distribution width (RBC) [Ratio] 14.2 % Normal 11.0-15.0 [facility] Comment on above: Performed By: #### C BC ####[facility] Nitqmaculf86[address] [place] [address]Dr. Airam Tripathi Hematocrit (Bld) [Volume fraction] 31.3 % Critically low 36.0-48.0 [facility] Comment on above: Performed By: #### C BC ####[facility] Oolwdzfexu40[address] [place] [address]Dr. Airam Tripathi Hemoglobin (Bld) [Mass/Vol] 9.3 g/dL Critically low 12.0-16.0 [facility] Comment on above: Performed By: #### C BC ####[facility] Fcwknhfbic127[address] [place], [place] [address]Dr. Selenaneil Tripathi IG # 0.05 10e3/ul Critically high 0.00-0.03 [facility] Comment on above: Performed By: #### C BC ####[facility] Lkhsgumazj27220[address] [place], [place] [address]Dr. Airam Tripathi IG % 0.7 % Critically high 0.0-0.5 [facility] Comment on above: Performed By: #### C BC ####[facility] Ijwflflcte956[address] [place], [place] [address]Dr. Selenaneil Tripathi LYMPH # 1.0 103/ul Critically low 1.2-3.8 [facility] Comment on above: Performed By: #### C BC ####[facility] Amvkvwweqy884[address] [place], [place] [address]Dr. Selenaneil Tripathi Lymphocytes/100 WBC (Bld) 13.4 % Critically low 20.5-60.0 [facility] Comment on above: Performed By: #### C BC ####[facility] Rpizxbeowi160207 [address] [place], [place] [address]Dr. Selenaneil Tripathi MANUAL DIFF REQ NO Normal [facility] Comment on above: Performed By: #### C BC ####[facility] Ubgcxiulty402[address] [place], [place] [address]DrKianna Selenaneil Tripathi MCH (RBC) [Entitic mass] 28.8 pg Normal 26.7-34.0 [facility] Comment on above: Performed By: #### C BC ####[facility] Lbuhpioueh30[address] [place] [id number]. Selenaneil Tripathi MCHC (RBC) [Mass/Vol] 29.7 g/dL Critically low 29.9-35.2 [facility] Comment on above: Performed By: #### C BC ####[facility] Cbgdqrelpq2142 [place] [id number]. Airam Tripathi MCV (RBC) [Entitic vol] 96.9 fL Normal 81.0-99.0 [facility] Comment on above: Performed By: #### C BC ####[facility] Onenwjatyd868[address] [place], [place] [address]Dr. Airam Tripathi MONO # 0.5 103/ul Normal 0.3-0.8 [facility] Comment on above: Performed By: #### C BC ####[facility] Tijdiljaha234307 [address] [place], [place] [address]Dr. Airam Tripathi Monocytes/100 WBC (Bld) 6.3 % Normal 1.7-12.0 [facility] Comment on above: Performed By: #### C BC ####[facility] Xzeykzasgz540[address] [place], [place] [address]Dr. Airam Tripathi NEUT # 5.8 103/ul Normal 1.4-6.5 [facility] Comment on above: Performed By: #### C BC ####[facility] Vlafloswvc1029[address] [place], [place] [address]Dr. Airam Tripathi Neutrophils/100 WBC (Bld) 76.6 % Critically high 43.0-75.0 [facility] Comment on above: Performed By: #### C BC ####[facility] Uyskyhoueu812307 [address] [place], [place] [address]Dr. Airam Tripathi Platelet mean volume (Bld) [Entitic vol] 10.3 fL Normal 9.5-13.5 [facility] Comment on above: Performed By: #### C BC ####[facility] Cjldljxhsm006[address] [place], [place] [address]Dr. Airam Tripathi PLT 265 103/ul Normal 150-450 [facility] Comment on above: Performed By: #### C BC ####[facility] Doqgcfbnee37[address] [place] [address]Dr. Selenaneil Deuce RBC 3.23 106/ul Critically low 4.20-5.40 [facility] Comment on above: Performed By: #### C BC ####[facility] Vlfbepeukb5424 [place] [id number]. Airam Tripathi WBC 7.6 103/ul Normal 4.0-11.0 [facility] Comment on above: Performed By: #### C BC ####[facility] Nikldbehta4974 [place] [address]Dr. Airam Tripathi PROF 14(COMP METB)on 023 Albumin [Mass/Vol] 2.9 g/dL Critically low 3.4-5.0 [facility] Comment on above: Performed By: #### C MP ####[facility] Pyzvsymnem88500[address] [place], [place] [address]Dr. Airam Tripathi Albumin/Globulin [Mass ratio] 0.8 {ratio} Normal [facility] Comment on above: Performed By: #### C MP ####[facility] Qdxvnshbmg747407 [address] [place], [place] [address]Dr. Airam Tripathi ALP [Catalytic activity/Vol] 175 U/L Critically high 46-116 [facility] Comment on above: Performed By: #### C MP ####[facility] Znkvnjpgwv352107 [address] [place], [place] [address]Dr. Airam Tripathi ALT [Catalytic activity/Vol] 24 U/L Normal 14-59 [facility] Comment on above: Performed By: #### C MP ####[facility] Piqnvcxxzc9126 [place] [address]Dr. Airam Tripathi Anion gap [Moles/Vol] 14.3 mmol/L Normal [facility] Comment on above: Performed By: #### C MP ####[facility] Xetgftndac1251 [place] [address]Dr. Airam Tripathi AST [Catalytic activity/Vol] 25 U/L Normal 15-37 [facility] Comment on above: Performed By: #### C MP ####[facility] Vteizqybht99[address] [place] [id number]. Airam Tripathi Bilirubin [Mass/Vol] 0.2 mg/dL Normal 0.2-1.0 [facility] Comment on above: Performed By: #### C MP ####[facility] Lscvcrhdxu078207 [address] [place], [place] [address]Dr. Airam Tripathi Calcium [Mass/Vol] 8.6 mg/dL Normal 8.5-10.1 [facility] Comment on above: Performed By: #### C MP ####[facility] Hobkrpbmsj760507 [address] [place], [place] [address]Dr. Airam Tripathi Chloride [Moles/Vol] 102 mmol/L Normal 98-107 [facility] Comment on above: Performed By: #### C MP ####[facility] Gfaoxrszev578[address] [place], [place] [address]Dr. Airam Tripathi CO2 [Moles/Vol] 23.7 mmol/L Normal 21.0-32.0 [facility] Comment on above: Performed By: #### C MP ####[facility] Mpuszrqzke764507 [address] [place], [place] [address]Dr. Airam Tripathi Creatinine [Mass/Vol] 1.29 mg/dL Critically high 0.55-1.02 [facility] Comment on above: Performed By: #### C MP ####[facility] Rzmzfyoara309007 [address] [place], [place] [address]Dr. Aiarm Tripathi EGFR-AF ROMANIAN 51 mL/min/1.73m2 Critically low >=60 [facility] Comment on above: Performed By: #### C MP ####[facility] Uhlualjmos405[address] [place], [place] [address]Dr. Airam Tripathi EGFR-NON AF ROMANIAN 42 mL/min/1.73m2 Critically low >=60 [facility] Comment on above: Performed By: #### C MP ####[facility] Agypjediuo903207 [address] [place], [place] [address]Dr. Airam Tripathi Globulin (S) [Mass/Vol] 3.6 g/dL Normal [facility] Comment on above: Performed By: #### C MP ####[facility] Aeqxnzvqmx5149 [place] [address]Dr. Airam Tripathi Glucose [Mass/Vol] 84 mg/dL Normal 74-106 [facility] Comment on above: Performed By: #### C MP ####[facility] Dkplhjhgjr8125 [place] [address]Dr. Airam Tripathi Potassium [Moles/Vol] 5.0 mmol/L Normal 3.5-5.1 [facility] Comment on above: Performed By: #### C MP ####[facility] Oivjryxyhe8751 [place] [address]Dr. Airam Tripathi Protein [Mass/Vol] 6.5 g/dL Normal 6.4-8.2 [facility] Comment on above: Performed By: #### C MP ####[facility] Tpmahegrdb457807 [address] [place], [place] [address]Dr. Airam Tripathi Sodium [Moles/Vol] 135 mmol/L Critically low 136-145 [facility] Comment on above: Performed By: #### C MP ####[facility] Xrwrqbqfvh425307 [address] [place], [place] [address]Dr. Airam Tripathi Urea nitrogen [Mass/Vol] 28.0 mg/dL Critically high 7.0-18.0 [facility] Comment on above: Performed By: #### C MP ####[facility] Uovdxnuvmy717607 [address] [place], [place] [address]Dr. Airam Tripathi Urea nitrogen/Creatinine [Mass ratio] 21.7 mg/mg Normal [facility] Comment on above: Performed By: #### C MP ####[facility] Kadvtdehyc364[address] [place], [place] [address]Dr. Airam Tripathi XR LSPINE MIN 4 VIEWSon 02 XR LSPINE MIN 4 VIEWS Normal [facility] OSMOLALITYon 07-24-2022 Osmolality [Osmolality] 279 mosm/kg Normal 275-295 [facility] Comment on above: Performed By: #### O SMO ####[facility] Cgscrigsjw56280[address] [place], [place] [address]Dr. Airam Tripathi CBC AUTO DIFFon 07-21-2022 BASO # 0.0 103/ul Normal 0.0-0.1 [facility] Comment on above: Performed By: #### C BC ####[facility] Rkcgonowpv6641 [place] [address]Dr. Airam Tripathi Basophils/100 WBC (Bld) 0.4 % Normal 0.2-2.0 [facility] Comment on above: Performed By: #### C BC ####[facility] Crhibqskbv010807 [address] [place], [place] [address]Dr. Airam Tripathi EO # 0.2 103/ul Normal 0.0-0.7 [facility] Comment on above: Performed By: #### C BC ####[facility] Okgaetirug332[address] [place], [place] [address]Dr. Airam Tripathi Eosinophils/100 WBC (Bld) 2.3 % Normal 0.9-7.0 [facility] Comment on above: Performed By: #### C BC ####[facility] Xljmarrars575207 [address] [place], [place] [address]Dr. Airam Tripathi Erythrocyte distribution width (RBC) [Ratio] 13.6 % Normal 11.0-15.0 [facility] Comment on above: Performed By: #### C BC ####[facility] Ypeiecujfr745[address] [place], [place] [address]Dr. Airam Tripathi Hematocrit (Bld) [Volume fraction] 32.6 % Critically low 36.0-48.0 [facility] Comment on above: Performed By: #### C BC ####[facility] Elkshwxhbi49110[address] [place], [place] [address]Dr. Airam Tripathi Hemoglobin (Bld) [Mass/Vol] 9.5 g/dL Critically low 12.0-16.0 [facility] Comment on above: Performed By: #### C BC ####[facility] Rvyzrhsdxg677807 [address] [place], [place] [address]Dr. Airam Tripathi IG # 0.03 10e3/ul Normal 0.00-0.03 [facility] Comment on above: Performed By: #### C BC ####[facility] Uvaweqycom38[address] [place] [address]Dr. Selenaneil Tripathi IG % 0.4 % Normal 0.0-0.5 [facility] Comment on above: Performed By: #### C BC ####[facility] Mmtubyfuyo0748 [place] [address]DrKianna Tripathi LYMPH # 1.4 103/ul Normal 1.2-3.8 [facility] Comment on above: Performed By: #### C BC ####[facility] Rldkkebbyu825[address] [place], [place] [address]DrKianna Tripathi Lymphocytes/100 WBC (Bld) 18.2 % Critically low 20.5-60.0 [facility] Comment on above: Performed By: #### C BC ####[facility] Utozlebiwk574[address] [place], [place] [address]DrKianna Tripathi MANUAL DIFF REQ NO Normal [facility] Comment on above: Performed By: #### C BC ####[facility] Ckeegzyjvk89110[address] [place], [place] [address]DrKianna Airam Deuce MCH (RBC) [Entitic mass] 29.5 pg Normal 26.7-34.0 [facility] Comment on above: Performed By: #### C BC ####[facility] Dikzmpoycc423[address] [place], [place] [address]DrKianna Airam Deuce MCHC (RBC) [Mass/Vol] 29.1 g/dL Critically low 29.9-35.2 [facility] Comment on above: Performed By: #### C BC ####[facility] Ymqcwivsba229[address] [place], [place] [address]DrKianna Selenaneil Tripathi MCV (RBC) [Entitic vol] 101.2 fL Critically high 81.0-99.0 [facility] Comment on above: Performed By: #### C BC ####[facility] Cpplnywsqa164[address] [place], [place] [address]DrKianna Tripathi MONO # 0.6 103/ul Normal 0.3-0.8 [facility] Comment on above: Performed By: #### C BC ####[facility] Rojglnrlsp398[address] [place], [place] [address]Dr. Airam Tripathi Monocytes/100 WBC (Bld) 7.9 % Normal 1.7-12.0 [facility] Comment on above: Performed By: #### C BC ####[facility] Dabiapwvxv4969 [place] [address]Dr. Airam Tripathi NEUT # 5.5 103/ul Normal 1.4-6.5 [facility] Comment on above: Performed By: #### C BC ####[facility] Hhxnuikvfj6037 [place] [address]Dr. Airam Tripathi Neutrophils/100 WBC (Bld) 70.8 % Normal 43.0-75.0 [facility] Comment on above: Performed By: #### C BC ####[facility] Jzxckmpxco7248 [place] [address]Dr. Airam Tripathi Platelet mean volume (Bld) [Entitic vol] 9.6 fL Normal 9.5-13.5 [facility] Comment on above: Performed By: #### C BC ####[facility] Ivzwdqlpkw8988 [place] [address]Dr. Airam Tripathi PLT 265 103/ul Normal 150-450 [facility] Comment on above: Performed By: #### C BC ####[facility] Eiozrqwbrw6322 [place] [address]Dr. Airam Tripathi RBC 3.22 106/ul Critically low 4.20-5.40 [facility] Comment on above: Performed By: #### C BC ####[facility] Pxibpqpwfv3910 [place] [address]Dr. Airam Tripathi WBC 7.8 103/ul Normal 4.0-11.0 [facility] Comment on above: Performed By: #### C BC ####[facility] Qdbcsvtajm0412 [place] [address]Dr. Airam Deuce PROF 14(COMP METB)on 023 Albumin [Mass/Vol] 2.9 g/dL Critically low 3.4-5.0 [facility] Comment on above: Performed By: #### C MP ####[facility] Hnxnxsvvck701[address] [place], [place] [address]Dr. Airam Deuce Albumin/Globulin [Mass ratio] 0.9 {ratio} Normal [facility] Comment on above: Performed By: #### C MP ####[facility] Vsztiirzid638[address] [place], [place] [address]Dr. Airam Deuce ALP [Catalytic activity/Vol] 176 U/L Critically high 46-116 [facility] Comment on above: Performed By: #### C MP ####[facility] Eynjnirdyx7729[address] [place], [place] [address]Dr. Selenaneil Deuce ALT [Catalytic activity/Vol] 19 U/L Normal 14-59 [facility] Comment on above: Performed By: #### C MP ####[facility] Vskyubbyqg650307 [address] [place], [place] [address]Dr. Airam Tripathi Anion gap [Moles/Vol] 12.6 mmol/L Normal [facility] Comment on above: Performed By: #### C MP ####[facility] Mpwlssnruc04230[address] [place], [place] [address]Dr. Airam Tripathi AST [Catalytic activity/Vol] 25 U/L Normal 15-37 [facility] Comment on above: Performed By: #### C MP ####[facility] Eonjwquuhc316[address] [place], [place] [address]Dr. Airam Tripathi Bilirubin [Mass/Vol] 0.2 mg/dL Normal 0.2-1.0 [facility] Comment on above: Performed By: #### C MP ####[facility] Xgycrpwaux996807 [address] [place], [place] [address]Dr. Airam Tripathi Calcium [Mass/Vol] 8.5 mg/dL Normal 8.5-10.1 [facility] Comment on above: Performed By: #### C MP ####[facility] Sjzkndymnu758[address] [place], [place] [address]Dr. Airam Tripathi Chloride [Moles/Vol] 101 mmol/L Normal 98-107 [facility] Comment on above: Performed By: #### C MP ####[facility] Sjregvsmoo399[address] [place], [place] [address]Dr. Airam Tripathi CO2 [Moles/Vol] 25.9 mmol/L Normal 21.0-32.0 [facility] Comment on above: Performed By: #### C MP ####[facility] Kmcwieqfqo4414 [place] [address]Dr. Selenaneil Tripathi Creatinine [Mass/Vol] 1.11 mg/dL Critically high 0.55-1.02 [facility] Comment on above: Performed By: #### C MP ####[facility] Efkjweyxgd9693 [place] [address]Dr. Airam Tripathi EGFR-AF ROMANIAN >60 Normal >=60 [facility] Comment on above: Performed By: #### C MP ####[facility] Dnczfirsrw511[address] [place], [place] [address]Dr. Airam Tripathi EGFR-NON AF ROMANIAN 50 mL/min/1.73m2 Critically low >=60 [facility] Comment on above: Performed By: #### C MP ####[facility] Pdqkicuoua211[address] [place], [place] [address]Dr. Airam Tripathi Globulin (S) [Mass/Vol] 3.2 g/dL Normal [facility] Comment on above: Performed By: #### C MP ####[facility] Bnyjkfqmly147507 [address] [place], [place] [address]Dr. Airam Tripathi Glucose [Mass/Vol] 80 mg/dL Normal 74-106 [facility] Comment on above: Performed By: #### C MP ####[facility] Ygfragmfzn18110[address] [place], [place] [address]Dr. Airam Tripathi Potassium [Moles/Vol] 3.5 mmol/L Normal 3.5-5.1 [facility] Comment on above: Performed By: #### C MP ####[facility] Tjtziryomr545[address] [place], [place] [address]Dr. Airam Tripathi Protein [Mass/Vol] 6.1 g/dL Critically low 6.4-8.2 [facility] Comment on above: Performed By: #### C MP ####[facility] Wvujhwdmfx399[address] [place], [place] [address]Dr. Airam Tripathi Sodium [Moles/Vol] 136 mmol/L Normal 136-145 [facility] Comment on above: Performed By: #### C MP ####[facility] Fdjrgjqjsm698[address] [place], [place] [address]Dr. Selenaneil Deuce Urea nitrogen [Mass/Vol] 31.0 mg/dL Critically high 7.0-18.0 [facility] Comment on above: Performed By: #### C MP ####[facility] Smhwtrnbdo873[address] [place], [place] [address]Dr. Airam Tripathi Urea nitrogen/Creatinine [Mass ratio] 27.9 mg/mg Normal [facility] Comment on above: Performed By: #### C MP ####[facility] Ckhyudxvip16[address] [place], [place] [address]Dr. Airam Tripathi OSMOLALITYon 07-19-2022 Osmolality [Osmolality] 285 mosm/kg Normal 275-295 [facility] Comment on above: Performed By: #### O SMO ####[facility] Oggyezhqcb1919[address] [place], [place] [address]Dr. Airam Tripathi CBC AUTO DIFFon 07-15-2022 BASO # 0.0 103/ul Normal 0.0-0.1 [facility] Comment on above: Performed By: #### C BC ####[facility] Ewntqtdpkd[address] [place], [place] [address]Dr. Airam Tripathi Basophils/100 WBC (Bld) 0.2 % Normal 0.2-2.0 [facility] Comment on above: Performed By: #### C BC ####[facility] Idejmoyrci873[address] [place], [place] [address]Dr. Airam Tripathi EO # 0.1 103/ul Normal 0.0-0.7 [facility] Comment on above: Performed By: #### C BC ####[facility] Ymlymokutx073[address] [place], [place] [address]Dr. Airam Tripathi Eosinophils/100 WBC (Bld) 1.4 % Normal 0.9-7.0 [facility] Comment on above: Performed By: #### C BC ####[facility] Qllfhcyzdx[address] [place] [address]Dr. Airam Tripathi Erythrocyte distribution width (RBC) [Ratio] 13.0 % Normal 11.0-15.0 [facility] Comment on above: Performed By: #### C BC ####[facility] Irfgdxegyr[address] [place] [address]Dr. Airam Tripathi Hematocrit (Bld) [Volume fraction] 29.3 % Critically low 36.0-48.0 [facility] Comment on above: Performed By: #### C BC ####[facility] Tocaktexnv524[address] [place], [place] [address]Dr. Airam Tripathi Hemoglobin (Bld) [Mass/Vol] 10.3 g/dL Critically low 12.0-16.0 [facility] Comment on above: Performed By: #### C BC ####[facility] Qcyejecnbh60[address] [place], [place] [address]Dr. Airam Tripathi IG # 0.05 10e3/ul Critically high 0.00-0.03 [facility] Comment on above: Performed By: #### C BC ####[facility] Ccnajkvfib99[address] [place], [place] [address]Dr. Airam Tripathi IG % 0.6 % Critically high 0.0-0.5 [facility] Comment on above: Performed By: #### C BC ####[facility] Xhodffiryt[address] [place], [place] [address]DrKianna Tripathi LYMPH # 0.9 103/ul Critically low 1.2-3.8 [facility] Comment on above: Performed By: #### C BC ####[facility] Etomeeiptj63[address] [place], [place] [address]DrKianna Tripathi Lymphocytes/100 WBC (Bld) 10.6 % Critically low 20.5-60.0 [facility] Comment on above: Performed By: #### C BC ####[facility] Dsvsgfxmpf402[address] [place], [place] [address]DrKianna Tripathi MANUAL DIFF REQ NO Normal [facility] Comment on above: Performed By: #### C BC ####[facility] Xwithwxeug028[address] [place], [place] [address]DrKianna Tripathi MCH (RBC) [Entitic mass] 29.3 pg Normal 26.7-34.0 [facility] Comment on above: Performed By: #### C BC ####[facility] Dzyoxlywjb7[address] [place] [address]Dr. Airam Tripathi MCHC (RBC) [Mass/Vol] 35.2 g/dL Normal 29.9-35.2 [facility] Comment on above: Performed By: #### C BC ####[facility] Mwcbkuwnbo026207 [address] [place], [place] [address]Dr. Airam Deuce MCV (RBC) [Entitic vol] 83.5 fL Normal 81.0-99.0 [facility] Comment on above: Performed By: #### C BC ####[facility] Ftcppfbmbd587207 [address] [place], [place] [address]Dr. Airam Tripathi MONO # 0.5 103/ul Normal 0.3-0.8 [facility] Comment on above: Performed By: #### C BC ####[facility] Ezudzftdoh905[address] [place], [place] [address]Dr. Airam Tripathi Monocytes/100 WBC (Bld) 5.1 % Normal 1.7-12.0 [facility] Comment on above: Performed By: #### C BC ####[facility] Zogeijgmwe970207 [address] [place], [place] [address]Dr. Selenaneil Deuce NEUT # 7.3 103/ul Critically high 1.4-6.5 [facility] Comment on above: Performed By: #### C BC ####[facility] Uqbgufjnhf889[address] [place], [place] [address]Dr. Airam Tripathi Neutrophils/100 WBC (Bld) 82.1 % Critically high 43.0-75.0 [facility] Comment on above: Performed By: #### C BC ####[facility] Juanioqptc130407 [address] [place], [place] [address]Dr. Airam Tripathi Platelet mean volume (Bld) [Entitic vol] 8.9 fL Critically low 9.5-13.5 [facility] Comment on above: Performed By: #### C BC ####[facility] Zqzqeubiip38[address] [place] [address]Dr. Selenaneil Deuce PLT 290 103/ul Normal 150-450 [facility] Comment on above: Performed By: #### C BC ####[facility] Ngdbatndxg3635 [place] [address]Dr. Airam Deuce RBC 3.51 106/ul Critically low 4.20-5.40 [facility] Comment on above: Performed By: #### C BC ####[facility] Ygllpdrfui9796 [place] [address]Dr. Airam Tripathi WBC 8.9 103/ul Normal 4.0-11.0 [facility] Comment on above: Performed By: #### C BC ####[facility] Dftwalafrn515[address] [place], [place] [address]DrKianna Tripathi PROF 14(COMP METB)on 023 Albumin [Mass/Vol] 3.2 g/dL Critically low 3.4-5.0 [facility] Comment on above: Performed By: #### C MP ####[facility] Ufwijuzvab781307 [address] [place], [place] [address]Dr. Airam Tripathi Albumin/Globulin [Mass ratio] 0.9 {ratio} Normal [facility] Comment on above: Performed By: #### C MP ####[facility] Adzxsysudj6965 [place] [address]Dr. Airam Tripathi ALP [Catalytic activity/Vol] 194 U/L Critically high 46-116 [facility] Comment on above: Performed By: #### C MP ####[facility] Ccopamvyei7172 [place] [address]DrKianna Tripathi ALT [Catalytic activity/Vol] 19 U/L Normal 14-59 [facility] Comment on above: Performed By: #### C MP ####[facility] Qwqjmbvcmk703[address] [place], [place] [address]DrKianna Tripathi Anion gap [Moles/Vol] 11.3 mmol/L Normal [facility] Comment on above: Performed By: #### C MP ####[facility] Fxkhqpfsmj709207 [address] [place], [place] [address]Dr. Airam Tripathi AST [Catalytic activity/Vol] 24 U/L Normal 15-37 [facility] Comment on above: Performed By: #### C MP ####[facility] Jpoipcbpda106[address] [place], [place] [address]Dr. Airam Deuce Bilirubin [Mass/Vol] 0.2 mg/dL Normal 0.2-1.0 [facility] Comment on above: Performed By: #### C MP ####[facility] Vvyjonrdcx135307 [address] [place], [place] [address]Dr. Airam Deuce Calcium [Mass/Vol] 8.7 mg/dL Normal 8.5-10.1 [facility] Comment on above: Performed By: #### C MP ####[facility] Glttqxhirg793507 [address] [place], [place] [address]Dr. Selenaneil Tripathi Chloride [Moles/Vol] 101 mmol/L Normal 98-107 [facility] Comment on above: Performed By: #### C MP ####[facility] Dxkgklpcmr09340[address] [place], [place] [address]Dr. Airam Deuce CO2 [Moles/Vol] 27.2 mmol/L Normal 21.0-32.0 [facility] Comment on above: Performed By: #### C MP ####[facility] Gusgkhamrv841907 [address] [place], [place] [address]Dr. Airam Deuce Creatinine [Mass/Vol] 1.17 mg/dL Critically high 0.55-1.02 [facility] Comment on above: Performed By: #### C MP ####[facility] Kxljdoqupx701307 [address] [place], [place] [address]Dr. Airam Deuce EGFR-AF ROMANIAN 57 mL/min/1.73m2 Critically low >=60 [facility] Comment on above: Performed By: #### C MP ####[facility] Ptaojhgcxl878307 [address] [place], [place] [address]Dr. Airam Tripathi EGFR-NON AF ROMANIAN 47 mL/min/1.73m2 Critically low >=60 [facility] Comment on above: Performed By: #### C MP ####[facility] Ujbvinsahv86380[address] [place], [place] [address]Dr. Airam Tripathi Globulin (S) [Mass/Vol] 3.5 g/dL Normal [facility] Comment on above: Performed By: #### C MP ####[facility] Uoexkeogyv458207 [address] [place], [place] [address]Dr. Airam Tripathi Glucose [Mass/Vol] 86 mg/dL Normal 74-106 [facility] Comment on above: Performed By: #### C MP ####[facility] Bxjlztzoyu038[address] [place], [place] [address]Dr. Airam Tripathi Potassium [Moles/Vol] 5.5 mmol/L Critically high 3.5-5.1 [facility] Comment on above: Performed By: #### C MP ####[facility] Chiepsfycm40280[address] [place], [place] [address]Dr. Airam Tripathi Protein [Mass/Vol] 6.7 g/dL Normal 6.4-8.2 [facility] Comment on above: Performed By: #### C MP ####[facility] Nfzslsxkha020907 [address] [place], [place] [address]Dr. Airam Tripathi Sodium [Moles/Vol] 134 mmol/L Critically low 136-145 [facility] Comment on above: Performed By: #### C MP ####[facility] Zaldzochnf2839[address] [place], [place] [address]Dr. Airam Tripathi Urea nitrogen [Mass/Vol] 26.0 mg/dL Critically high 7.0-18.0 [facility] Comment on above: Performed By: #### C MP ####[facility] Kvwjdfhmdk822[address] [place], [place] [address]Dr. Airam Tripathi Urea nitrogen/Creatinine [Mass ratio] 22.2 mg/mg Normal [facility] Comment on above: Performed By: #### C MP ####[facility] Sjavoygssk475407 [address] [place], [place] [address]Dr. Airam Tripathi OSMOLALITYon 07-08-2022 Osmolality [Osmolality] 273 mosm/kg Critically low 275-295 [facility] Comment on above: Performed By: #### O SMO ####[facility] Sxbspuenub68260[address] [place], [place] [address]Dr. Airam Tripathi CBC AUTO DIFFon 07-07-2022 BASO # 0.0 103/ul Normal 0.0-0.1 [facility] Comment on above: Performed By: #### C BC ####[facility] Zdtiyinwqm[address] [place] [address]Dr. Airam Tripathi Basophils/100 WBC (Bld) 0.4 % Normal 0.2-2.0 [facility] Comment on above: Performed By: #### C BC ####[facility] Mrvkqsxecm146407 [address] [place], [place] [address]Dr. Airam Tripathi EO # 0.1 103/ul Normal 0.0-0.7 [facility] Comment on above: Performed By: #### C BC ####[facility] Hosmtwfkjv606307 [address] [place], [place] [address]Dr. Airam Tripathi Eosinophils/100 WBC (Bld) 1.6 % Normal 0.9-7.0 [facility] Comment on above: Performed By: #### C BC ####[facility] Otatoumuxh760[address] [place], [place] [address]Dr. Airam Tripathi Erythrocyte distribution width (RBC) [Ratio] 13.1 % Normal 11.0-15.0 [facility] Comment on above: Performed By: #### C BC ####[facility] Yklrxbfhtg417[address] [place], [place] [address]Dr. Airam Tripathi Hematocrit (Bld) [Volume fraction] 33.7 % Critically low 36.0-48.0 [facility] Comment on above: Performed By: #### C BC ####[facility] Zhznpvxhkc936[address] [place], [place] [address]Dr. Airam Tripathi Hemoglobin (Bld) [Mass/Vol] 9.9 g/dL Critically low 12.0-16.0 [facility] Comment on above: Performed By: #### C BC ####[facility] Rdcczxjwct234[address] [place], [place] [address]Dr. Airam Deuce IG # 0.05 10e3/ul Critically high 0.00-0.03 [facility] Comment on above: Performed By: #### C BC ####[facility] A[address] [place] [id number]. Airam Tripathi IG % 0.6 % Critically high 0.0-0.5 [facility] Comment on above: Performed By: #### C BC ####[facility] Pyynpqjltt80[address] [place] [phone]. Airam Tripathi LYMPH # 1.2 103/ul Normal 1.2-3.8 [facility] Comment on above: Performed By: #### C BC ####[facility] Jmooffvnxl6771 [place] [id number]. Airam Tripathi Lymphocytes/100 WBC (Bld) 15.5 % Critically low 20.5-60.0 [facility] Comment on above: Performed By: #### C BC ####[facility] Cdzvdyitic[address] [place] [id number]. Airam Deuce MANUAL DIFF REQ NO Normal [facility] Comment on above: Performed By: #### C BC ####[facility] Qenqqrogfe6[address] [place] [phone]. Airam Tripathi MCH (RBC) [Entitic mass] 28.7 pg Normal 26.7-34.0 [facility] Comment on above: Performed By: #### C BC ####[facility] Lurzqofnuj3[address] [place] [phone]. Airam Tripathi MCHC (RBC) [Mass/Vol] 29.4 g/dL Critically low 29.9-35.2 [facility] Comment on above: Performed By: #### C BC ####[facility] Zpqcgcemop16[address] [place] [id number]. Airam Tripathi MCV (RBC) [Entitic vol] 97.7 fL Normal 81.0-99.0 [facility] Comment on above: Performed By: #### C BC ####[facility] W[address]zchzm25[address] [place] [address]Dr. Airam Deuce MONO # 0.6 103/ul Normal 0.3-0.8 [facility] Comment on above: Performed By: #### C BC ####[facility] Ryesbbldti4513 [place] [id number]. Airam Tripathi Monocytes/100 WBC (Bld) 7.7 % Normal 1.7-12.0 [facility] Comment on above: Performed By: #### C BC ####[facility] Clhsngxvsi2[address] [place] [phone]. Airam Tripathi NEUT # 5.9 103/ul Normal 1.4-6.5 [facility] Comment on above: Performed By: #### C BC ####[facility] Hylladudij2951 [place] [address]Dr. Airam Tripathi Neutrophils/100 WBC (Bld) 74.2 % Normal 43.0-75.0 [facility] Comment on above: Performed By: #### C BC ####[facility] Autdfhglvp7542 [place] [address]Dr. Airam Tripathi Platelet mean volume (Bld) [Entitic vol] 9.4 fL Critically low 9.5-13.5 [facility] Comment on above: Performed By: #### C BC ####[facility] Yueulxfexm4[address] [place] [address]Dr. Airam Tripathi PLT 331 103/ul Normal 150-450 [facility] Comment on above: Performed By: #### C BC ####[facility] Zzdpytvwjm7378 [place] [address]Dr. Airam Tripathi RBC 3.45 106/ul Critically low 4.20-5.40 [facility] Comment on above: Performed By: #### C BC ####[facility] Eevbptrkez500[address] [place] [address]Dr. Airam Tripathi WBC 7.9 103/ul Normal 4.0-11.0 [facility] Comment on above: Performed By: #### C BC ####[facility] Mfprbpxfar7469 [place] [address]Dr. Ariam Deuce PROF 14(COMP METB)on 023 Albumin [Mass/Vol] 3.4 g/dL Normal 3.4-5.0 [facility] Comment on above: Performed By: #### C MP ####[facility] Xezlhyydsh[address] [place] [address]Dr. Airam Tripathi Albumin/Globulin [Mass ratio] 1.1 {ratio} Normal [facility] Comment on above: Performed By: #### C MP ####[facility] Offdihooga[address] [place] [address]Dr. Airam Deuce ALP [Catalytic activity/Vol] 197 U/L Critically high 46-116 [facility] Comment on above: Performed By: #### C MP ####[facility] Baxwaejrrq127[address] [place], [place] [address]Dr. Airam Deuce ALT [Catalytic activity/Vol] 18 U/L Normal 14-59 [facility] Comment on above: Performed By: #### C MP ####[facility] Bdpbhphatc570[address] [place], [place] [address]Dr. Airam Tripathi Anion gap [Moles/Vol] 12.3 mmol/L Normal [facility] Comment on above: Performed By: #### C MP ####[facility] Pggbdjufmi159007 [address] [place], [place] [address]Dr. Airam Deuce AST [Catalytic activity/Vol] 26 U/L Normal 15-37 [facility] Comment on above: Performed By: #### C MP ####[facility] Opnmnamdzb544107 [address] [place], [place] [address]Dr. Selenaneil Tripathi Bilirubin [Mass/Vol] 0.3 mg/dL Normal 0.2-1.0 [facility] Comment on above: Performed By: #### C MP ####[facility] Rgccnjvtlt160407 [address] [place], [place] [address]Dr. Selenaneil Tripathi Calcium [Mass/Vol] 8.6 mg/dL Normal 8.5-10.1 [facility] Comment on above: Performed By: #### C MP ####[facility] Pfxbigczie125107 [address] [place], [place] [address]Dr. Airam Tripathi Chloride [Moles/Vol] 96 mmol/L Critically low 98-107 [facility] Comment on above: Performed By: #### C MP ####[facility] Dqogufvtjq119507 [address] [place], [place] [address]Dr. Airam Tripathi CO2 [Moles/Vol] 27.8 mmol/L Normal 21.0-32.0 [facility] Comment on above: Performed By: #### C MP ####[facility] Wwzdlxdxvj9786 [place] [address]Dr. Airam Tripathi Creatinine [Mass/Vol] 1.55 mg/dL Critically high 0.55-1.02 [facility] Comment on above: Performed By: #### C MP ####[facility] Miqbxkpkmy0090 [place] [address]Dr. Airam Tripathi EGFR-AF ROMANIAN 41 mL/min/1.73m2 Critically low >=60 [facility] Comment on above: Performed By: #### C MP ####[facility] Mfsgokopfa9035 [place] [address]Dr. Airam Tripathi EGFR-NON AF ROMANIAN 34 mL/min/1.73m2 Critically low >=60 [facility] Comment on above: Performed By: #### C MP ####[facility] Lwydxhkwbs035[address] [place], [place] [address]Dr. Airam Tripathi Globulin (S) [Mass/Vol] 3.2 g/dL Normal [facility] Comment on above: Performed By: #### C MP ####[facility] Nbbmuyihwr759907 [address] [place], [place] [address]Dr. Airam Deuce Glucose [Mass/Vol] 87 mg/dL Normal 74-106 [facility] Comment on above: Performed By: #### C MP ####[facility] Ewfqeshjjq506[address] [place], [place] [address]Dr. Airam Tripathi Potassium [Moles/Vol] 5.1 mmol/L Normal 3.5-5.1 [facility] Comment on above: Performed By: #### C MP ####[facility] Ojstucfmfq704[address] [place], [place] [address]Dr. Airam Tripathi Protein [Mass/Vol] 6.6 g/dL Normal 6.4-8.2 [facility] Comment on above: Performed By: #### C MP ####[facility] Rbxinhvpon707907 [address] [place], [place] [address]Dr. Airam Tripathi Sodium [Moles/Vol] 131 mmol/L Critically low 136-145 [facility] Comment on above: Performed By: #### C MP ####[facility] Caxrzonmip317[address] [place], [place] [address]Dr. Airam Tripathi Urea nitrogen [Mass/Vol] 31.0 mg/dL Critically high 7.0-18.0 [facility] Comment on above: Performed By: #### C MP ####[facility] Vkkgtlkmce05[address] [place], [place] [address]Dr. Airam Tripathi Urea nitrogen/Creatinine [Mass ratio] 20.0 mg/mg Normal [facility] Comment on above: Performed By: #### C MP ####[facility] Csmgsidioi878[address] [place], [place] [address]Dr. Airam Tripathi OSMOLALITYon 07-02-2022 Osmolality [Osmolality] 281 mosm/kg Normal 275-295 [facility] Comment on above: Performed By: #### O SMO ####[facility] Dhithyrxzh950[address] [place], [place] [address]Dr. Airam Tripathi CBC AUTO DIFFon 06-29-2022 BASO # 0.0 103/ul Normal 0.0-0.1 [facility] Comment on above: Performed By: #### C BC ####[facility] Boqohnfdii508207 [address] [place], [place] [address]Dr. Airam Deuce Basophils/100 WBC (Bld) 0.3 % Normal 0.2-2.0 [facility] Comment on above: Performed By: #### C BC ####[facility] Jeofvwauvy895[address] [place], [place] [address]Dr. Airam Tripathi EO # 0.2 103/ul Normal 0.0-0.7 [facility] Comment on above: Performed By: #### C BC ####[facility] Mejoptiauw1619[address] [place], [place] [address]Dr. Airam Deuce Eosinophils/100 WBC (Bld) 2.3 % Normal 0.9-7.0 [facility] Comment on above: Performed By: #### C BC ####[facility] Vqzlxzpngy0394 [place] [address]Dr. Airam Tripathi Erythrocyte distribution width (RBC) [Ratio] 13.2 % Normal 11.0-15.0 [facility] Comment on above: Performed By: #### C BC ####[facility] Dqkjeelwko7692 [place] [address]Dr. Airam Tripathi Hematocrit (Bld) [Volume fraction] 28.2 % Critically low 36.0-48.0 [facility] Comment on above: Performed By: #### C BC ####[facility] Jcezvzsqlx23[address] [place], [place] [address]Dr. Airam Tripathi Hemoglobin (Bld) [Mass/Vol] 9.1 g/dL Critically low 12.0-16.0 [facility] Comment on above: Performed By: #### C BC ####[facility] Vxcdwzyrmi296[address] [place], [place] [address]Dr. Selenaneil Tripathi IG # 0.03 10e3/ul Normal 0.00-0.03 [facility] Comment on above: Performed By: #### C BC ####[facility] Ewbjginpir27[address] [place], [place] [address]Dr. Airam Tripathi IG % 0.4 % Normal 0.0-0.5 [facility] Comment on above: Performed By: #### C BC ####[facility] Dywfcctmbg934[address] [place], [place] [address]Dr. Selenaneil Tripathi LYMPH # 1.0 103/ul Critically low 1.2-3.8 [facility] Comment on above: Performed By: #### C BC ####[facility] Vxbkphumds419[address] [place], [place] [address]Dr. Selenaneil Tripathi Lymphocytes/100 WBC (Bld) 12.8 % Critically low 20.5-60.0 [facility] Comment on above: Performed By: #### C BC ####[facility] Fgsfvipaej625[address] [place], [place] [address]Dr. Selenaneil Tripathi MANUAL DIFF REQ NO Normal [facility] Comment on above: Performed By: #### C BC ####[facility] Ftkgvuduus1808 [place] [phone]. Airam Tripathi MCH (RBC) [Entitic mass] 29.9 pg Normal 26.7-34.0 [facility] Comment on above: Performed By: #### C BC ####[facility] Rgqvezkjzn7660 [place] [address]Dr. Airam Tripathi MCHC (RBC) [Mass/Vol] 32.3 g/dL Normal 29.9-35.2 [facility] Comment on above: Performed By: #### C BC ####[facility] Fcdhkbswrm523[address] [place], [place] [address]Dr. Airam Tripathi MCV (RBC) [Entitic vol] 92.8 fL Normal 81.0-99.0 [facility] Comment on above: Performed By: #### C BC ####[facility] Gkodvboeyd936[address] [place], [place] [address]Dr. Airam Tripathi MONO # 0.5 103/ul Normal 0.3-0.8 [facility] Comment on above: Performed By: #### C BC ####[facility] Nmqxgafdiu905[address] [place], [place] [address]Dr. Airam Deuce Monocytes/100 WBC (Bld) 6.0 % Normal 1.7-12.0 [facility] Comment on above: Performed By: #### C BC ####[facility] Edrmsojlfh[address] [place], [place] [address]Dr. Airam Tripathi NEUT # 6.0 103/ul Normal 1.4-6.5 [facility] Comment on above: Performed By: #### C BC ####[facility] Uumobabwlt[address] [place], [place] [address]Dr. Airam Deuce Neutrophils/100 WBC (Bld) 78.2 % Critically high 43.0-75.0 [facility] Comment on above: Performed By: #### C BC ####[facility] Cefkgejivj23[address] [place], [place] [address]Dr. Airam Tripathi Platelet mean volume (Bld) [Entitic vol] 9.0 fL Critically low 9.5-13.5 [facility] Comment on above: Performed By: #### C BC ####[facility] [address]ylkifszrj[address] [place] [phone]. Airam Tripathi PLT 332 103/ul Normal 150-450 [facility] Comment on above: Performed By: #### C BC ####[facility] Fcjwdjmdfa4023 [place] [phone]. Airam Tripathi RBC 3.04 106/ul Critically low 4.20-5.40 [facility] Comment on above: Performed By: #### C BC ####[facility] Urxukjibxo2818 [place] [phone]. Airam Tripathi WBC 7.7 103/ul Normal 4.0-11.0 [facility] Comment on above: Performed By: #### C BC ####[facility] Euv[address]mckay[address] [place] [address]Dr. Airam Tripathi PROF 14(COMP METB)on 023 Albumin [Mass/Vol] 3.2 g/dL Critically low 3.4-5.0 [facility] Comment on above: Performed By: #### C MP ####[facility] Vaylgzoikc4[address] [place] [address]Dr. Airam Tripathi Albumin/Globulin [Mass ratio] 0.9 {ratio} Normal [facility] Comment on above: Performed By: #### C MP ####[facility] Uuyjfcktht5[address] [place] [address]Dr. Airam Tripathi ALP [Catalytic activity/Vol] 135 U/L Critically high 46-116 [facility] Comment on above: Performed By: #### C MP ####[facility] Ouxkiifehh[address]90 [place] [phone]. Airam Tripathi ALT [Catalytic activity/Vol] 25 U/L Normal 14-59 [facility] Comment on above: Performed By: #### C MP ####[facility] Uetpumiqph16[address] [place] [phone]. Airam Tripathi Anion gap [Moles/Vol] 9.1 mmol/L Normal [facility] Comment on above: Performed By: #### C MP ####[facility] Ybzoikvbih[address] [place] [phone]. Airam Tripathi AST [Catalytic activity/Vol] 34 U/L Normal 15-37 [facility] Comment on above: Performed By: #### C MP ####[facility] Zcrpardfqd5784 [place] [phone]. Airam Tripathi Bilirubin [Mass/Vol] 0.3 mg/dL Normal 0.2-1.0 [facility] Comment on above: Performed By: #### C MP ####[facility] Tdqkqpeqja53[address] [place] [phone]. Airam Tripathi Calcium [Mass/Vol] 8.6 mg/dL Normal 8.5-10.1 [facility] Comment on above: Performed By: #### C MP ####[facility] Jcywekrlur[address] [place], [place] [address]Dr. Airam Tripathi Chloride [Moles/Vol] 99 mmol/L Normal 98-107 [facility] Comment on above: Performed By: #### C MP ####[facility] Usxxblyhja732[address] [place], [place] [address]Dr. Airam Tripathi CO2 [Moles/Vol] 29.1 mmol/L Normal 21.0-32.0 [facility] Comment on above: Performed By: #### C MP ####[facility] Gesnlbqvfx39[address] [place], [place] [address]Dr. Airam Tripathi Creatinine [Mass/Vol] 1.40 mg/dL Critically high 0.55-1.02 [facility] Comment on above: Performed By: #### C MP ####[facility] Stohgokmtr[address] [place], [place] [address]Dr. Airam Tripathi EGFR-AF ROMANIAN 46 mL/min/1.73m2 Critically low >=60 [facility] Comment on above: Performed By: #### C MP ####[facility] Wpkvwayray854[address] [place], [place] [address]Dr. Airam Tripathi EGFR-NON AF ROMANIAN 38 mL/min/1.73m2 Critically low >=60 [facility] Comment on above: Performed By: #### C MP ####[facility] Btcsvppkop[address] [place] [phone]. Airam Tripathi Globulin (S) [Mass/Vol] 3.4 g/dL Normal [facility] Comment on above: Performed By: #### C MP ####[facility] [address]jvw[address] [place] [address]Dr. Airam Tripathi Glucose [Mass/Vol] 83 mg/dL Normal 74-106 [facility] Comment on above: Performed By: #### C MP ####[facility] Mzleitbtqk30[address] [place] [address]Dr. Airam Tripathi Potassium [Moles/Vol] 4.2 mmol/L Normal 3.5-5.1 [facility] Comment on above: Performed By: #### C MP ####[facility] Dvfuhngtzy890[address] [place], [place] [address]Dr. Airam Tripathi Protein [Mass/Vol] 6.6 g/dL Normal 6.4-8.2 [facility] Comment on above: Performed By: #### C MP ####[facility] Qxgtnzxmpy630[address] [place], [place] [address]Dr. Airam Tripathi Sodium [Moles/Vol] 133 mmol/L Critically low 136-145 [facility] Comment on above: Performed By: #### C MP ####[facility] Uhvzdojzrv866[address] [place], [place] [address]Dr. Airam Tripathi Urea nitrogen [Mass/Vol] 37.0 mg/dL Critically high 7.0-18.0 [facility] Comment on above: Performed By: #### C MP ####[facility] Rwblxjzbtj9525[address] [place], [place] [address]Dr. Airam Tripathi Urea nitrogen/Creatinine [Mass ratio] 26.4 mg/mg Normal [facility] Comment on above: Performed By: #### C MP ####[facility] Htpgxtlbvo960[address] [place], [place] [address]Dr. Airam Tripathi BNPon 06-18-2022 Natriuretic peptide B (Bld) [Mass/Vol] 5826.0 pg/mL Critically high <=900.0 [facility] Comment on above: Performed By: #### B COMMERCIAL LOAN OFFICER, CMP ####[facility] L[address]oubxcmip[address] [place] [phone]. Airam Tripathi CBC AUTO DIFFon 06-18-2022 BASO # 0.0 103/ul Normal 0.0-0.1 [facility] Comment on above: Performed By: #### C BC ####[facility] Rkxbbklttv38[address] [place] [phone]. Airam Tripathi Basophils/100 WBC (Bld) 0.4 % Normal 0.2-2.0 [facility] Comment on above: Performed By: #### C BC ####[facility] Hxqdeaiwow048[address] [place], [place] [address]Dr. Airam Tripathi EO # 0.1 103/ul Normal 0.0-0.7 [facility] Comment on above: Performed By: #### C BC ####[facility] Ywabtllgse0127[address] [place], [place] [address]Dr. Airam Tripathi Eosinophils/100 WBC (Bld) 1.3 % Normal 0.9-7.0 [facility] Comment on above: Performed By: #### C BC ####[facility] Qoozaklquj7224[address] [place], [place] [address]Dr. Airam Tripathi Erythrocyte distribution width (RBC) [Ratio] 13.4 % Normal 11.0-15.0 [facility] Comment on above: Performed By: #### C BC ####[facility] Shlswgbvze1719[address] [place], [place] [address]Dr. Airam Tripathi Hematocrit (Bld) [Volume fraction] 27.3 % Critically low 36.0-48.0 [facility] Comment on above: Performed By: #### C BC ####[facility] Xvzyuypejf8529[address] [place], [place] [address]Dr. Airam Tripathi Hemoglobin (Bld) [Mass/Vol] 8.6 g/dL Critically low 12.0-16.0 [facility] Comment on above: Performed By: #### C BC ####[facility] Nuuxtsbljm8101[address] [place], [place] [address]Dr. Airam Tripathi IG # 0.08 10e3/ul Critically high 0.00-0.03 [facility] Comment on above: Performed By: #### C BC ####[facility] Bdgcqwmqzt3[address] [place] [address]DrKianna Airam Tripathi IG % 0.8 % Critically high 0.0-0.5 [facility] Comment on above: Performed By: #### C BC ####[facility] Uzqpmepvte47[address] [place] [address]DrKianna Airam Deuce LYMPH # 1.9 103/ul Normal 1.2-3.8 [facility] Comment on above: Performed By: #### C BC ####[facility] Fnwaynyfvt63[address] [place] [address]DrKianna Selenaneil Tripathi Lymphocytes/100 WBC (Bld) 19.3 % Critically low 20.5-60.0 [facility] Comment on above: Performed By: #### C BC ####[facility] Pgpogblkvi875[address] [place], [place] [address]DrKianna Selenaneil Tripathi MANUAL DIFF REQ NO Normal [facility] Comment on above: Performed By: #### C BC ####[facility] Tzkmsilzhg9[address] [place] [phone]. Airam Deuce MCH (RBC) [Entitic mass] 29.6 pg Normal 26.7-34.0 [facility] Comment on above: Performed By: #### C BC ####[facility] Iospyaphfm5617[address] [place], [place] [address]DrKianna Airam Deuce MCHC (RBC) [Mass/Vol] 31.5 g/dL Normal 29.9-35.2 [facility] Comment on above: Performed By: #### C BC ####[facility] Ynaccschvw[address] [place], [place] [address]DrKianna Airam Deuce MCV (RBC) [Entitic vol] 93.8 fL Normal 81.0-99.0 [facility] Comment on above: Performed By: #### C BC ####[facility] Dgtbjjtogi084[address] [place], [place] [address]DrKianna Tripathi MONO # 0.6 103/ul Normal 0.3-0.8 [facility] Comment on above: Performed By: #### C BC ####[facility] Uwueczqfby3[address] [place] [address]Dr. Airam Tripathi Monocytes/100 WBC (Bld) 6.5 % Normal 1.7-12.0 [facility] Comment on above: Performed By: #### C BC ####[facility] Rwdmhzyiul8969 [place] [phone]. Airam Tripathi NEUT # 6.9 103/ul Critically high 1.4-6.5 [facility] Comment on above: Performed By: #### C BC ####[facility] V[address]vvhd13[address] [place] [address]Dr. Airam Tripathi Neutrophils/100 WBC (Bld) 71.7 % Normal 43.0-75.0 [facility] Comment on above: Performed By: #### C BC ####[facility] Groviworug[address] [place] [address]Dr. Airam Tripathi Platelet mean volume (Bld) [Entitic vol] 8.5 fL Critically low 9.5-13.5 [facility] Comment on above: Performed By: #### C BC ####[facility] V[address]iet[address]hzm[address] [place] [address]Dr. Airam Tripathi PLT 295 103/ul Normal 150-450 [facility] Comment on above: Performed By: #### C BC ####[facility] Ywaygivsrk42[address] [place] [address]Dr. Airam Tripathi RBC 2.91 106/ul Critically low 4.20-5.40 [facility] Comment on above: Performed By: #### C BC ####[facility] Cyivjpyjlb9[address] [place] [phone]. Airam Tripathi WBC 9.7 103/ul Normal 4.0-11.0 [facility] Comment on above: Performed By: #### C BC ####[facility] Xrikqmovdv35[address] [place] [address]DrKianna Tripathi PROF 14(COMP METB)on 06-18-2 022 Albumin [Mass/Vol] 2.8 g/dL Critically low 3.4-5.0 [facility] Comment on above: Performed By: #### B COMMERCIAL LOAN OFFICER, CMP ####[facility] Velnfmfqwy7[address] [place] [address]Dr. Airam Tripathi Albumin/Globulin [Mass ratio] 0.9 {ratio} Normal [facility] Comment on above: Performed By: #### B COMMERCIAL LOAN OFFICER, CMP ####[facility] Fy[address]umpejr[address] [place] [address]Dr. Airam Tripathi ALP [Catalytic activity/Vol] 125 U/L Critically high 46-116 [facility] Comment on above: Performed By: #### B COMMERCIAL LOAN OFFICER, CMP ####[facility] Dtfydhtzle207[address] [place], [place] [address]Dr. Airam Tripathi ALT [Catalytic activity/Vol] 16 U/L Normal 14-59 [facility] Comment on above: Performed By: #### B COMMERCIAL LOAN OFFICER, CMP ####[facility] Upfyyonpqc869607 [address] [place], [place] [address]Dr. Airam Tripathi Anion gap [Moles/Vol] 11.4 mmol/L Normal [facility] Comment on above: Performed By: #### B COMMERCIAL LOAN OFFICER, CMP ####[facility] Ddmxasyzqj611[address] [place], [place] [address]Dr. Airam Tripathi AST [Catalytic activity/Vol] 23 U/L Normal 15-37 [facility] Comment on above: Performed By: #### B COMMERCIAL LOAN OFFICER, CMP ####[facility] Ujtrbywntu032[address] [place], [place] [address]Dr. Airam Tripathi Bilirubin [Mass/Vol] 0.2 mg/dL Normal 0.2-1.0 [facility] Comment on above: Performed By: #### B COMMERCIAL LOAN OFFICER, CMP ####[facility] Sirsqrvulr405[address] [place], [place] [address]Dr. Airam Tripathi Calcium [Mass/Vol] 8.1 mg/dL Critically low 8.5-10.1 [facility] Comment on above: Performed By: #### B COMMERCIAL LOAN OFFICER, CMP ####[facility] Iiclcbpaue0901[address] [place], [place] [address]Dr. Airam Tripathi Chloride [Moles/Vol] 96 mmol/L Critically low 98-107 [facility] Comment on above: Performed By: #### B COMMERCIAL LOAN OFFICER, CMP ####[facility] Pinnhwzasj157[address] [place], [place] [address]Dr. Airam Tripathi CO2 [Moles/Vol] 26.6 mmol/L Normal 21.0-32.0 [facility] Comment on above: Performed By: #### B COMMERCIAL LOAN OFFICER, CMP ####[facility] Eomyqjeaju6119[address] [place], [place] [address]Dr. Airam Tripathi Creatinine [Mass/Vol] 1.31 mg/dL Critically high 0.55-1.02 [facility] Comment on above: Performed By: #### B COMMERCIAL LOAN OFFICER, CMP ####[facility] Cchbkazgmq765[address] [place], [place] [address]Dr. Airam Tripathi EGFR-AF ROMANIAN 50 mL/min/1.73m2 Critically low >=60 [facility] Comment on above: Performed By: #### B COMMERCIAL LOAN OFFICER, CMP ####[facility] Xiucqjbimq301[address] [place], [place] [address]Dr. Airam Tripathi EGFR-NON AF ROMANIAN 41 mL/min/1.73m2 Critically low >=60 [facility] Comment on above: Performed By: #### B COMMERCIAL LOAN OFFICER, CMP ####[facility] Vcobsenubq705[address] [place], [place] [address]Dr. Airam Tripathi Globulin (S) [Mass/Vol] 3.0 g/dL Normal [facility] Comment on above: Performed By: #### B COMMERCIAL LOAN OFFICER, CMP ####[facility] Dnzyqmaplz060[address] [place], [place] [address]Dr. Airam Tripathi Glucose [Mass/Vol] 82 mg/dL Normal 74-106 [facility] Comment on above: Performed By: #### B COMMERCIAL LOAN OFFICER, CMP ####[facility] Dzpkqiudru8715[address] [place], [place] [address]Dr. Airam Tripathi Potassium [Moles/Vol] 4.0 mmol/L Normal 3.5-5.1 [facility] Comment on above: Performed By: #### B COMMERCIAL LOAN OFFICER, CMP ####[facility] Fcahxyxkcl344[address] [place], [place] [address]Dr. Airam Tripathi Protein [Mass/Vol] 5.8 g/dL Critically low 6.4-8.2 [facility] Comment on above: Performed By: #### B COMMERCIAL LOAN OFFICER, CMP ####[facility] Pzpcgwvbeq470[address] [place], [place] [address]Dr. Airam Tripathi Sodium [Moles/Vol] 130 mmol/L Critically low 136-145 [facility] Comment on above: Performed By: #### B COMMERCIAL LOAN OFFICER, CMP ####[facility] Klsclmdsbq924[address] [place], [place] [address]Dr. Airam Deuce Urea nitrogen [Mass/Vol] 19.0 mg/dL Critically high 7.0-18.0 [facility] Comment on above: Performed By: #### B COMMERCIAL LOAN OFFICER, CMP ####[facility] Forwwgdwre648[address] [place], [place] [address]Dr. Airam Tripathi Urea nitrogen/Creatinine [Mass ratio] 14.5 mg/mg Normal [facility] Comment on above: Performed By: #### B COMMERCIAL LOAN OFFICER, CMP ####[facility] Dnjigqhlvm606[address] [place], [place] [address]Dr. Airam Deuce BNPon 06-17-2022 Natriuretic peptide B (Bld) [Mass/Vol] 2510.0 pg/mL Critically high <=900.0 [facility] Comment on above: Performed By: #### B COMMERCIAL LOAN OFFICER, CMP ####[facility] Yqkuagbjms570[address] [place], [place] [address]Dr. Airam Deuce CBC AUTO DIFFon 06-17-2022 BASO # 0.0 103/ul Normal 0.0-0.1 [facility] Comment on above: Performed By: #### C BC ####[facility] Iqrepinspt8839[address] [place], [place] [address]Dr. Airam Tripathi Basophils/100 WBC (Bld) 0.4 % Normal 0.2-2.0 [facility] Comment on above: Performed By: #### C BC ####[facility] Qcmhabtijb767[address] [place], [place] [address]Dr. Airam Tripathi EO # 0.0 103/ul Normal 0.0-0.7 [facility] Comment on above: Performed By: #### C BC ####[facility] Hrerhohleg7567 [place] [address]Dr. Airam Tripathi Eosinophils/100 WBC (Bld) 0.3 % Critically low 0.9-7.0 [facility] Comment on above: Performed By: #### C BC ####[facility] Xzmhilcakk77380[address] [place], [place] [address]Dr. Airam Tripathi Erythrocyte distribution width (RBC) [Ratio] 13.6 % Normal 11.0-15.0 [facility] Comment on above: Performed By: #### C BC ####[facility] Sahkhozdgl027[address] [place], [place] [address]Dr. Airam Tripathi Hematocrit (Bld) [Volume fraction] 28.9 % Critically low 36.0-48.0 [facility] Comment on above: Performed By: #### C BC ####[facility] Tjlrznsegn284[address] [place], [place] [address]DrKianna Airam Tripathi Hemoglobin (Bld) [Mass/Vol] 8.9 g/dL Critically low 12.0-16.0 [facility] Comment on above: Performed By: #### C BC ####[facility] Xkdlhjbxdm936[address] [place], [place] [address]DrKianna Airam Tripathi IG # 0.10 10e3/ul Critically high 0.00-0.03 [facility] Comment on above: Performed By: #### C BC ####[facility] Wphzbbcylq57380[address] [place], [place] [address]Dr. Airam Tripathi IG % 1.3 % Critically high 0.0-0.5 [facility] Comment on above: Performed By: #### C BC ####[facility] Gapqnpvxkl69[address] [place], [place] [address]DrKianna Tripathi LYMPH # 0.7 103/ul Critically low 1.2-3.8 [facility] Comment on above: Performed By: #### C BC ####[facility] Gqfjbqqnjd375[address] [place], [place] [address]Dr. Selenaneil Tripathi Lymphocytes/100 WBC (Bld) 8.1 % Critically low 20.5-60.0 [facility] Comment on above: Performed By: #### C BC ####[facility] Vegtxvarlx0328 [place] [address]DrKianna Tripathi MANUAL DIFF REQ NO Normal [facility] Comment on above: Performed By: #### C BC ####[facility] Clqvcksids1362 [place] [address]Dr. Airam Tripathi MCH (RBC) [Entitic mass] 29.4 pg Normal 26.7-34.0 [facility] Comment on above: Performed By: #### C BC ####[facility] Uplrzvyrib309207 [address] [place], [place] [address]Dr. Airam Tripathi MCHC (RBC) [Mass/Vol] 30.8 g/dL Normal 29.9-35.2 [facility] Comment on above: Performed By: #### C BC ####[facility] Mfqmglbzvf9[address] [place], [place] [address]DrKianna Tripathi MCV (RBC) [Entitic vol] 95.4 fL Normal 81.0-99.0 [facility] Comment on above: Performed By: #### C BC ####[facility] Pzvfdajkuu826[address] [place], [place] [address]DrKianna Tripathi MONO # 0.3 103/ul Normal 0.3-0.8 [facility] Comment on above: Performed By: #### C BC ####[facility] Qmflvbvupl615[address] [place], [place] [address]DrKianna Tripathi Monocytes/100 WBC (Bld) 3.1 % Normal 1.7-12.0 [facility] Comment on above: Performed By: #### C BC ####[facility] Lbkytdbuyp589[address] [place], [place] [address]DrKianna Tripathi NEUT # 7.0 103/ul Critically high 1.4-6.5 [facility] Comment on above: Performed By: #### C BC ####[facility] Xlznqzhgtr237[address] [place], [place] [address]DrKianna Tripathi Neutrophils/100 WBC (Bld) 86.8 % Critically high 43.0-75.0 [facility] Comment on above: Performed By: #### C BC ####[facility] Sgpfsztqhn0459 [place] [address]DrKianna Tripathi Platelet mean volume (Bld) [Entitic vol] 8.3 fL Critically low 9.5-13.5 [facility] Comment on above: Performed By: #### C BC ####[facility] Xdrmvyoaso5647 [place] [address]DrKianna Tripathi PLT 279 103/ul Normal 150-450 [facility] Comment on above: Performed By: #### C BC ####[facility] Hqwntwvicj2239[address] [place], [place] [address]DrKianna Tripathi RBC 3.03 106/ul Critically low 4.20-5.40 [facility] Comment on above: Performed By: #### C BC ####[facility] Zqdxdtrsbw67280[address] [place], [place] [address]DrKianna Tripathi WBC 8.0 103/ul Normal 4.0-11.0 [facility] Comment on above: Performed By: #### C BC ####[facility] Npafilljxd211[address] [place], [place] [address]DrKianna Tripathi PROF 14(COMP METB)on 022 Albumin [Mass/Vol] 2.8 g/dL Critically low 3.4-5.0 [facility] Comment on above: Performed By: #### B COMMERCIAL LOAN OFFICER, CMP ####[facility] Wfitqxifcu20300[address] [place], [place] [address]DrKianna Tripathi Albumin/Globulin [Mass ratio] 0.9 {ratio} Normal [facility] Comment on above: Performed By: #### B COMMERCIAL LOAN OFFICER, CMP ####[facility] Whurxxcnyb77340[address] [place], [place] [address]DrKianna Tripathi ALP [Catalytic activity/Vol] 136 U/L Critically high 46-116 [facility] Comment on above: Performed By: #### B COMMERCIAL LOAN OFFICER, CMP ####[facility] Wvviexsnll3469[address] [place], [place] [address]DrKianna Tripathi ALT [Catalytic activity/Vol] 17 U/L Normal 14-59 [facility] Comment on above: Performed By: #### B COMMERCIAL LOAN OFFICER, CMP ####[facility] Jclxwodyos422[address] [place], [place] [address]Dr. Airam Tripathi Anion gap [Moles/Vol] 12.9 mmol/L Normal [facility] Comment on above: Performed By: #### B COMMERCIAL LOAN OFFICER, CMP ####[facility] Sxzgcqorls728[address] [place], [place] [address]Dr. Airam Tripathi AST [Catalytic activity/Vol] 24 U/L Normal 15-37 [facility] Comment on above: Performed By: #### B COMMERCIAL LOAN OFFICER, CMP ####[facility] Uhnddupwlo935[address] [place], [place] [address]Dr. Airam Tripathi Bilirubin [Mass/Vol] 0.2 mg/dL Normal 0.2-1.0 [facility] Comment on above: Performed By: #### B COMMERCIAL LOAN OFFICER, CMP ####[facility] Kmelvaeupl766[address] [place], [place] [address]Dr. Airam Deuce Calcium [Mass/Vol] 8.7 mg/dL Normal 8.5-10.1 [facility] Comment on above: Performed By: #### B COMMERCIAL LOAN OFFICER, CMP ####[facility] Zawwqdvjsl034[address] [place], [place] [address]Dr. Airam Deuce Chloride [Moles/Vol] 102 mmol/L Normal 98-107 [facility] Comment on above: Performed By: #### B COMMERCIAL LOAN OFFICER, CMP ####[facility] Zxdktprupf968[address] [place], [place] [address]Dr. Airam Tripathi CO2 [Moles/Vol] 23.8 mmol/L Normal 21.0-32.0 [facility] Comment on above: Performed By: #### B COMMERCIAL LOAN OFFICER, CMP ####[facility] Gznyrhxtmv675[address] [place], [place] [address]Dr. Airam Deuce Creatinine [Mass/Vol] 1.08 mg/dL Critically high 0.55-1.02 [facility] Comment on above: Performed By: #### B COMMERCIAL LOAN OFFICER, CMP ####[facility] Feavbnymrk[address] [place] [address]Dr. Airam rTipathi EGFR-AF ROMANIAN >60 Normal >=60 [facility] Comment on above: Performed By: #### B COMMERCIAL LOAN OFFICER, CMP ####[facility] Ovxgxrkpev0772 [place] [address]Dr. Airam Tripathi EGFR-NON AF ROMANIAN 52 mL/min/1.73m2 Critically low >=60 [facility] Comment on above: Performed By: #### B COMMERCIAL LOAN OFFICER, CMP ####[facility] Wxiyixsucs9032 [place] [address]Dr. Airam Tripathi Globulin (S) [Mass/Vol] 3.2 g/dL Normal [facility] Comment on above: Performed By: #### B COMMERCIAL LOAN OFFICER, CMP ####[facility] Cyrafnvqws5427[address] [place], [place] [address]Dr. Airam Tripathi Glucose [Mass/Vol] 99 mg/dL Normal 74-106 [facility] Comment on above: Performed By: #### B COMMERCIAL LOAN OFFICER, CMP ####[facility] Bockbslpae9[address] [place], [place] [address]Dr. Airam Tripathi Potassium [Moles/Vol] 4.7 mmol/L Normal 3.5-5.1 [facility] Comment on above: Performed By: #### B COMMERCIAL LOAN OFFICER, CMP ####[facility] Yigqwslqlq617[address] [place], [place] [address]Dr. Airam Tripathi Protein [Mass/Vol] 6.0 g/dL Critically low 6.4-8.2 [facility] Comment on above: Performed By: #### B COMMERCIAL LOAN OFFICER, CMP ####[facility] Cnstxpwplb160[address] [place], [place] [address]Dr. Airam Tripathi Sodium [Moles/Vol] 134 mmol/L Critically low 136-145 [facility] Comment on above: Performed By: #### B COMMERCIAL LOAN OFFICER, CMP ####[facility] Tdymjdnszj6569[address] [place], [place] [address]Dr. Airam Tripathi Urea nitrogen [Mass/Vol] 19.0 mg/dL Critically high 7.0-18.0 [facility] Comment on above: Performed By: #### B COMMERCIAL LOAN OFFICER, CMP ####[facility] Jadgkoxaly6319[address] [place], [place] [address]Dr. Airam Tripathi Urea nitrogen/Creatinine [Mass ratio] 17.6 mg/mg Normal [facility] Comment on above: Performed By: #### B COMMERCIAL LOAN OFFICER, CMP ####[facility] Wtnzfvrxre664[address] [place], [place] [address]Dr. Airam Tripathi PROTIMEon 06-17-2022 INR Coag (PPP) [Relative time] 1.00 {INR} Normal [facility] Comment on above: Performed By: #### P T ####[facility] Htypkosmoc[address] [place], [place] [address]Dr. Airam Tripathi INR GUIDELINES SEE BELOW Normal [facility] Comment on above: Result Comment: SIDRA RED INR: 2.0 - 3.0 CONDITIONS NOT LISTED BELOW 2.5 - 3.5 FOR PROSTHETIC HEART VALVE REPLACEMENT 2.5 - 3.5 RECURRENT THROMBOSIS Performed By: #### P T ####[facility] Xpzssnjvyt[address] [place], [place] [address]Dr. Airam Tripathi PT Coag (PPP) [Time] 10.8 s Normal 9.0-11.6 [facility] Comment on above: Performed By: #### P T ####[facility] Jcaftlzkbe138[address] [place], [place] [address]Dr. Airam Tripathi PTTon 06-17-2022 aPTT Coag (Bld) [Time] 27.2 s Normal 22.3-36.2 [facility] Comment on above: Performed By: #### P TT ####[facility] [address]ndr[address] [place], [place] [address]Dr. Airam Tripathi BNPon 06-16-2022 Natriuretic peptide B (Bld) [Mass/Vol] 2293.0 pg/mL Critically high <=900.0 [facility] Comment on above: Performed By: #### C MP, BNP ####[facility] Vkvtojfcpu649[address] [place], [place] [address]Dr. Airam Tripathi CBC AUTO DIFFon 06-16-2022 BASO # 0.0 103/ul Normal 0.0-0.1 [facility] Comment on above: Performed By: #### C BC ####[facility] Pigflm[address]le[address] [place] [phone]. Airam Tripathi Basophils/100 WBC (Bld) 0.4 % Normal 0.2-2.0 [facility] Comment on above: Performed By: #### C BC ####[facility] Pxkbquibwb95[address] [place], [place] [id number]. Airam Tripathi EO # 0.2 103/ul Normal 0.0-0.7 [facility] Comment on above: Performed By: #### C BC ####[facility] Mjnoimwoiw498[address] [place], [place] [address]Dr. Airam Tripathi Eosinophils/100 WBC (Bld) 3.0 % Normal 0.9-7.0 [facility] Comment on above: Performed By: #### C BC ####[facility] Crzpowiffz2839[address] [place], [place] [address]Dr. Airam Tripathi Erythrocyte distribution width (RBC) [Ratio] 13.3 % Normal 11.0-15.0 [facility] Comment on above: Performed By: #### C BC ####[facility] Hkbglgapdr0213[address] [place], [place] [id number]. Airam Tripathi Hematocrit (Bld) [Volume fraction] 26.2 % Critically low 36.0-48.0 [facility] Comment on above: Performed By: #### C BC ####[facility] Bstjvabuzh284[address] [place], [place] [address]Dr. Airam Tripathi Hemoglobin (Bld) [Mass/Vol] 8.3 g/dL Critically low 12.0-16.0 [facility] Comment on above: Performed By: #### C BC ####[facility] Urrqjebzbg894[address] [place], [place] [address]Dr. Airam Tripathi IG # 0.08 10e3/ul Critically high 0.00-0.03 [facility] Comment on above: Performed By: #### C BC ####[facility] Uugedgkhjd6818[address] [place], [place] [address]Dr. Airam Tripathi IG % 1.1 % Critically high 0.0-0.5 [facility] Comment on above: Performed By: #### C BC ####[facility] Dweitqkxfs5546 [place] [phone]. Airam Tripathi LYMPH # 1.2 103/ul Normal 1.2-3.8 [facility] Comment on above: Performed By: #### C BC ####[facility] Iajelqowda9[address] [place] [phone]. Airam Tripathi Lymphocytes/100 WBC (Bld) 17.3 % Critically low 20.5-60.0 [facility] Comment on above: Performed By: #### C BC ####[facility] Hzaovkkmyp279[address] [place], [place] [address]Dr. Airam Tripathi MANUAL DIFF REQ NO Normal [facility] Comment on above: Performed By: #### C BC ####[facility] Byqyuwsvip35[address] [place] [address]Dr. Airam Tripathi MCH (RBC) [Entitic mass] 30.3 pg Normal 26.7-34.0 [facility] Comment on above: Performed By: #### C BC ####[facility] Jhxdaowozm4746 [place] [phone]. Airam Tripathi MCHC (RBC) [Mass/Vol] 31.7 g/dL Normal 29.9-35.2 [facility] Comment on above: Performed By: #### C BC ####[facility] Wdgdivqwxj4504 [place] [phone]. Airam Tripathi MCV (RBC) [Entitic vol] 95.6 fL Normal 81.0-99.0 [facility] Comment on above: Performed By: #### C BC ####[facility] Xdtgnyogdi7646 [place] [phone]. Airam Tripathi MONO # 0.5 103/ul Normal 0.3-0.8 [facility] Comment on above: Performed By: #### C BC ####[facility] Gljpofzawz30[address] [place] [phone]. Airam Tripathi Monocytes/100 WBC (Bld) 7.1 % Normal 1.7-12.0 [facility] Comment on above: Performed By: #### C BC ####[facility] Acxumyuhwo9850 [place] [phone]. Airam Tripathi NEUT # 5.0 103/ul Normal 1.4-6.5 [facility] Comment on above: Performed By: #### C BC ####[facility] Snpuhlfwkk0854 [place] [phone]. Airam Tripathi Neutrophils/100 WBC (Bld) 71.1 % Normal 43.0-75.0 [facility] Comment on above: Performed By: #### C BC ####[facility] Oxiblyywrj0927 [place] [phone]. Airam Tripathi Platelet mean volume (Bld) [Entitic vol] 8.2 fL Critically low 9.5-13.5 [facility] Comment on above: Performed By: #### C BC ####[facility] Tzbvxzwxco4[address] [place] [address]Dr. Airam Tripathi PLT 247 103/ul Normal 150-450 [facility] Comment on above: Performed By: #### C BC ####[facility] Fnxnuymuhl64[address] [place] [address]Dr. Airam Tripathi RBC 2.74 106/ul Critically low 4.20-5.40 [facility] Comment on above: Performed By: #### C BC ####[facility] Xyzhkzpxcy00[address] [place] [address]Dr. Airam Tripathi WBC 7.1 103/ul Normal 4.0-11.0 [facility] Comment on above: Performed By: #### C BC ####[facility] Cxmarpxprb5988 [place] [address]Dr. Airam Tripathi CTA CHEST WO W CONon 022 CTA CHEST WO W CON Normal [facility] PROF 14(COMP METB)on 022 Albumin [Mass/Vol] 2.6 g/dL Critically low 3.4-5.0 [facility] Comment on above: Performed By: #### C MP, BNP ####[facility] Jgkaobkhax729[address] [place], [place] [address]Dr. Selenaneil Deuce Albumin/Globulin [Mass ratio] 0.8 {ratio} Normal [facility] Comment on above: Performed By: #### C MP, BNP ####[facility] Ltswjxkkjv20[address] [place] [address]Dr. Airam Deuce ALP [Catalytic activity/Vol] 130 U/L Critically high 46-116 [facility] Comment on above: Performed By: #### C MP, BNP ####[facility] Bcsqurvduz88[address] [place] [address]Dr. Airam Tripathi ALT [Catalytic activity/Vol] 12 U/L Critically low 14-59 [facility] Comment on above: Performed By: #### C MP, BNP ####[facility] Voiwqvliwr86[address] [place] [address]Dr. Airam Tripathi Anion gap [Moles/Vol] 11.8 mmol/L Normal [facility] Comment on above: Performed By: #### C MP, BNP ####[facility] Npqkcqzeuj[address] [place], [place] [address]Dr. Airam Tripathi AST [Catalytic activity/Vol] 22 U/L Normal 15-37 [facility] Comment on above: Performed By: #### C MP, BNP ####[facility] Tsnjvjjopz04[address] [place] [address]Dr. Airam Tripathi Bilirubin [Mass/Vol] 0.2 mg/dL Normal 0.2-1.0 [facility] Comment on above: Performed By: #### C MP, BNP ####[facility] Asywxwccfu9161 [place] [address]Dr. Airam Tripathi Calcium [Mass/Vol] 8.0 mg/dL Critically low 8.5-10.1 [facility] Comment on above: Performed By: #### C MP, BNP ####[facility] Rajhihnkfn0857 [place] [address]Dr. Airam Tripathi Chloride [Moles/Vol] 104 mmol/L Normal 98-107 [facility] Comment on above: Performed By: #### C MP, BNP ####[facility] Bbfsqydgzg319[address] [place], [place] [address]Dr. Airam Tripathi CO2 [Moles/Vol] 22.8 mmol/L Normal 21.0-32.0 [facility] Comment on above: Performed By: #### C MP, BNP ####[facility] Zaxtumbghw1140 [place] [address]Dr. Airam Tripathi Creatinine [Mass/Vol] 1.07 mg/dL Critically high 0.55-1.02 [facility] Comment on above: Performed By: #### C MP, BNP ####[facility] Cjqhluofon[address] [place], [place] [address]Dr. Airam Tripathi EGFR-AF ROMANIAN >60 Normal >=60 [facility] Comment on above: Performed By: #### C MP, BNP ####[facility] Eivyepljoq313[address] [place], [place] [address]Dr. Airam Deuce EGFR-NON AF ROMANIAN 52 mL/min/1.73m2 Critically low >=60 [facility] Comment on above: Performed By: #### C MP, BNP ####[facility] Zowguugscu154[address] [place], [place] [address]Dr. Airam Tripathi Globulin (S) [Mass/Vol] 3.1 g/dL Normal [facility] Comment on above: Performed By: #### C MP, BNP ####[facility] Zlgzalelpt6713[address] [place], [place] [address]Dr. Airam Tripathi Glucose [Mass/Vol] 85 mg/dL Normal 74-106 [facility] Comment on above: Performed By: #### C MP, BNP ####[facility] Mpekyzirsp112307 [address] [place], [place] [address]Dr. Airam Tripathi Potassium [Moles/Vol] 4.6 mmol/L Normal 3.5-5.1 [facility] Comment on above: Performed By: #### C MP, BNP ####[facility] Zxwnvzylbi7513[address] [place], [place] [address]Dr. Airam Tripathi Protein [Mass/Vol] 5.7 g/dL Critically low 6.4-8.2 [facility] Comment on above: Performed By: #### C MP, BNP ####[facility] Lyqdzvvyxl023[address] [place], [place] [address]Dr. Airam Tripathi Sodium [Moles/Vol] 134 mmol/L Critically low 136-145 [facility] Comment on above: Performed By: #### C MP, BNP ####[facility] Zwuqgvjgty618[address] [place], [place] [address]Dr. Airam Deuce Urea nitrogen [Mass/Vol] 24.0 mg/dL Critically high 7.0-18.0 [facility] Comment on above: Performed By: #### C MP, BNP ####[facility] Xpzovfcpzo424[address] [place], [place] [address]Dr. Selenaneil Tripathi Urea nitrogen/Creatinine [Mass ratio] 22.4 mg/mg Normal [facility] Comment on above: Performed By: #### C MP, BNP ####[facility] Cbhfelsxjs279[address] [place], [place] [address]Dr. Airam Deuce BNPon 06-15-2022 Natriuretic peptide B (Bld) [Mass/Vol] 934.0 pg/mL Critically high <=900.0 [facility] Comment on above: Performed By: #### C MP, BNP ####[facility] Arjfhpyulr723[address] [place], [place] [address]Dr. Airam Deuce CBC AUTO DIFFon 06-15-2022 BASO # 0.0 103/ul Normal 0.0-0.1 [facility] Comment on above: Performed By: #### C BC ####[facility] Pmgmilkgru773707 [address] [place], [place] [address]Dr. Airam Tripathi Basophils/100 WBC (Bld) 0.2 % Normal 0.2-2.0 [facility] Comment on above: Performed By: #### C BC ####[facility] Lolfimlots590[address] [place], [place] [address]Dr. Airam Tripathi EO # 0.1 103/ul Normal 0.0-0.7 [facility] Comment on above: Performed By: #### C BC ####[facility] Dhjvbbxezu554[address] [place], [place] [address]Dr. Airam Tripathi Eosinophils/100 WBC (Bld) 2.1 % Normal 0.9-7.0 [facility] Comment on above: Performed By: #### C BC ####[facility] Kvmulcdwxo722407 [address] [place], [place] [address]Dr. Airam Tripathi Erythrocyte distribution width (RBC) [Ratio] 12.9 % Normal 11.0-15.0 [facility] Comment on above: Performed By: #### C BC ####[facility] Nodzrnpodl439[address] [place], [place] [address]DrKianna Tripathi Hematocrit (Bld) [Volume fraction] 24.9 % Critically low 36.0-48.0 [facility] Comment on above: Performed By: #### C BC ####[facility] Wujyyelthq06260[address] [place], [place] [address]DrKianna Tripathi Hemoglobin (Bld) [Mass/Vol] 7.9 g/dL Critically low 12.0-16.0 [facility] Comment on above: Performed By: #### C BC ####[facility] Txrsfiqlll457[address] [place], [place] [address]Dr. Airam Tripathi IG # 0.05 10e3/ul Critically high 0.00-0.03 [facility] Comment on above: Performed By: #### C BC ####[facility] Ylnzbffgyc9739[address] [place], [place] [address]DrKianna Tripathi IG % 0.8 % Critically high 0.0-0.5 [facility] Comment on above: Performed By: #### C BC ####[facility] Oqdhklrncr629[address] [place], [place] [address]DrKianna Tripathi LYMPH # 0.9 103/ul Critically low 1.2-3.8 [facility] Comment on above: Performed By: #### C BC ####[facility] Amzspkxyqn267[address] [place], [place] [address]DrKianna Tripathi Lymphocytes/100 WBC (Bld) 13.7 % Critically low 20.5-60.0 [facility] Comment on above: Performed By: #### C BC ####[facility] Kovciqsrik648[address] [place], [place] [address]DrKianna Tripathi MANUAL DIFF REQ NO Normal [facility] Comment on above: Performed By: #### C BC ####[facility] Unbbwopark7965 [place] [address]DrKianna Tripathi MCH (RBC) [Entitic mass] 30.2 pg Normal 26.7-34.0 [facility] Comment on above: Performed By: #### C BC ####[facility] Favdxuikzx3506 [place] [address]DrKianna Tripathi MCHC (RBC) [Mass/Vol] 31.7 g/dL Normal 29.9-35.2 [facility] Comment on above: Performed By: #### C BC ####[facility] Nencnqtrap390[address] [place], [place] [address]DrKianna Tripathi MCV (RBC) [Entitic vol] 95.0 fL Normal 81.0-99.0 [facility] Comment on above: Performed By: #### C BC ####[facility] Zjkjxgrcum269207 [address] [place], [place] [address]DrKianna Tripathi MONO # 0.4 103/ul Normal 0.3-0.8 [facility] Comment on above: Performed By: #### C BC ####[facility] Cmlelutnfk227307 [address] [place], [place] [address]DrKianna Tripathi Monocytes/100 WBC (Bld) 6.7 % Normal 1.7-12.0 [facility] Comment on above: Performed By: #### C BC ####[facility] Enutardqfr80480[address] [place], [place] [address]DrKianna Tripathi NEUT # 5.0 103/ul Normal 1.4-6.5 [facility] Comment on above: Performed By: #### C BC ####[facility] Dnjpfeqsaa159[address] [place], [place] [address]DrKianna Tripathi Neutrophils/100 WBC (Bld) 76.5 % Critically high 43.0-75.0 [facility] Comment on above: Performed By: #### C BC ####[facility] Rveehnrfcl057407 [address] [place], [place] [address]DrKianna Tripathi Platelet mean volume (Bld) [Entitic vol] 8.4 fL Critically low 9.5-13.5 [facility] Comment on above: Performed By: #### C BC ####[facility] Gwglixtahx9074 [place] [address]Dr. Selenaneil Tripathi PLT 202 103/ul Normal 150-450 [facility] Comment on above: Performed By: #### C BC ####[facility] Vmqwdrykni1209 [place] [address]Dr. Airam Tripathi RBC 2.62 106/ul Critically low 4.20-5.40 [facility] Comment on above: Performed By: #### C BC ####[facility] Uyxeveewge626[address] [place], [place] [address]Dr. Airam Tripathi WBC 6.6 103/ul Normal 4.0-11.0 [facility] Comment on above: Performed By: #### C BC ####[facility] Cyhajmgkvc626[address] [place], [place] [address]DrKianna Tripathi OSMOLALITYon 06-15-2022 Osmolality [Osmolality] 269 mosm/kg Critically low 275-295 [facility] Comment on above: Performed By: #### O SMO ####[facility] Uuzrbldnwv078[address] [place], [place] [address]DrKianna Tripathi PROF 14(COMP METB)on 022 Albumin [Mass/Vol] 2.5 g/dL Critically low 3.4-5.0 [facility] Comment on above: Performed By: #### C MP, BNP ####[facility] Eoaajikhgv19360[address] [place], [place] [address]Dr. Airam Tripathi Albumin/Globulin [Mass ratio] 0.9 {ratio} Normal [facility] Comment on above: Performed By: #### C MP, BNP ####[facility] Vwpjazkkwt1115[address] [place], [place] [address]Dr. Airam Tripathi ALP [Catalytic activity/Vol] 128 U/L Critically high 46-116 [facility] Comment on above: Performed By: #### C MP, BNP ####[facility] Flxjhzjefb899[address] [place], [place] [address]Dr. Airam Tripathi ALT [Catalytic activity/Vol] 14 U/L Normal 14-59 [facility] Comment on above: Performed By: #### C MP, BNP ####[facility] Dqvherxchp4630 [place] [address]Dr. Airam Tripathi Anion gap [Moles/Vol] 10.4 mmol/L Normal [facility] Comment on above: Performed By: #### C MP, BNP ####[facility] Mjpjxlhmqz823[address] [place], [place] [address]Dr. Airam Tripathi AST [Catalytic activity/Vol] 23 U/L Normal 15-37 [facility] Comment on above: Performed By: #### C MP, BNP ####[facility] Ugvbqoqgtu754[address] [place], [place] [address]Dr. Airam Tripathi Bilirubin [Mass/Vol] 0.2 mg/dL Normal 0.2-1.0 [facility] Comment on above: Performed By: #### C MP, BNP ####[facility] Tpqkhhdadw958[address] [place], [place] [address]Dr. Airam Tripathi Calcium [Mass/Vol] 7.4 mg/dL Critically low 8.5-10.1 [facility] Comment on above: Performed By: #### C MP, BNP ####[facility] Omlsqrmlge23360[address] [place], [place] [address]Dr. Airam Rtipathi Chloride [Moles/Vol] 99 mmol/L Normal 98-107 [facility] Comment on above: Performed By: #### C MP, BNP ####[facility] Dhprwqnlkn174[address] [place], [place] [address]Dr. Airam Tripathi CO2 [Moles/Vol] 24.1 mmol/L Normal 21.0-32.0 [facility] Comment on above: Performed By: #### C MP, BNP ####[facility] Cwaxlphura99020[address] [place], [place] [address]Dr. Airam Tripathi Creatinine [Mass/Vol] 1.45 mg/dL Critically high 0.55-1.02 [facility] Comment on above: Performed By: #### C MP, BNP ####[facility] Rklevqnirq1044 [place] [phone]. Airam Tripathi EGFR-AF ROMANIAN 45 mL/min/1.73m2 Critically low >=60 [facility] Comment on above: Performed By: #### C MP, BNP ####[facility] Rggmcsugra1817[address] [place], [place] [address]Dr. Airam Tripathi EGFR-NON AF ROMANIAN 37 mL/min/1.73m2 Critically low >=60 [facility] Comment on above: Performed By: #### C MP, BNP ####[facility] Qlxykaojcy500[address] [place], [place] [address]Dr. Airam Tripathi Globulin (S) [Mass/Vol] 2.8 g/dL Normal [facility] Comment on above: Performed By: #### C MP, BNP ####[facility] Jqcmvocrih018[address] [place], [place] [address]Dr. Airam Tripathi Glucose [Mass/Vol] 82 mg/dL Normal 74-106 [facility] Comment on above: Performed By: #### C MP, BNP ####[facility] Ounwklhurd437[address] [place], [place] [address]Dr. Airam Tripathi Potassium [Moles/Vol] 4.5 mmol/L Normal 3.5-5.1 [facility] Comment on above: Performed By: #### C MP, BNP ####[facility] Mqkxfcqtgq809[address] [place], [place] [address]Dr. Airam Tripathi Protein [Mass/Vol] 5.3 g/dL Critically low 6.4-8.2 [facility] Comment on above: Performed By: #### C MP, BNP ####[facility] Cgrjzlflto[address] [place], [place] [address]Dr. Airam Tripathi Sodium [Moles/Vol] 129 mmol/L Critically low 136-145 [facility] Comment on above: Performed By: #### C MP, BNP ####[facility] Eecirgqfod839[address] [place], [place] [address]Dr. Airam Tripathi Urea nitrogen [Mass/Vol] 35.0 mg/dL Critically high 7.0-18.0 [facility] Comment on above: Performed By: #### C MP, BNP ####[facility] Hnxysfimtd80[address] [place] [address]Dr. Airam Tripathi Urea nitrogen/Creatinine [Mass ratio] 24.1 mg/mg Normal [facility] Comment on above: Performed By: #### C MP, BNP ####[facility] Obibqqhcvx1864 [place] [address]Dr. Airam Tripathi T3, TOTAL (TRIIODOTHYRONINE) on 06-15-2022 T3, TOTAL 113 ng/dL Normal 71-180 [facility] Comment on above: Performed By: #### T 3TOTAL ####[facility] Cazgqbapoi[address] [place], [place] [address]Dr. Airam Tripathi BNPon 06-14-2022 Natriuretic peptide B (Bld) [Mass/Vol] 1024.0 pg/mL Critically high <=900.0 [facility] Comment on above: Performed By: #### B COMM[employer]CIAL LOAN OFFICER, CMP ####[facility] Iewbnoefrm018[address] [place], [place] [address]Dr. Airam Tripathi CARDIAC CONSUELO 3-6on 2 CK [Catalytic activity/Vol] 116 U/L Normal 26-192 [facility] Comment on above: Performed By: #### C MREP ####[facility] Vfsqbtpaur656[address] [place], [place] [address]Dr. Airam Tripathi CK.MB [Mass/Vol] ng/mL Normal <=3.60 [facility] Comment on above: Performed By: #### C MREP ####[facility] Fisxcfnrkg237[address] [place], [place] [address]Dr. Airam Tripathi HSTROP 6.0 pg/mL Normal 4.0-51.3 [facility] Comment on above: Result Comment: CUT- OFF POINTS HAVE BEEN ESTABLISHED BASED ON THE FOURTH UNIVERSAL DEFINITIONS OF MYOCARDIALINFARCTION. THE UPPER REFERENCE LIMIT (URL) OF TROPONIN, DEFINED THE 99TH PERCENTILE OFcTnI DISTRIBUTION IN A REFERENCE POPULATION, HAS BEEN CONFIRMED THE DECISION THRESHOLDFOR DE DIAGNOSIS. Performed By: #### C MREP ####[facility] Lkswstaihf46[address] [place], [place] [address]Dr. Airam Tripathi CBC AUTO DIFFon 06-14-2022 BASO # 0.0 103/ul Normal 0.0-0.1 [facility] Comment on above: Performed By: #### C BC ####[facility] Jqmopneyqn8[address] [place] [address]Dr. Airam Tripathi Basophils/100 WBC (Bld) 0.3 % Normal 0.2-2.0 [facility] Comment on above: Performed By: #### C BC ####[facility] Obopmjnwyt4208 [place] [address]Dr. Airam Tripathi EO # 0.2 103/ul Normal 0.0-0.7 [facility] Comment on above: Performed By: #### C BC ####[facility] Fhhjnrahim0197 [place] [address]Dr. Airam Tripathi Eosinophils/100 WBC (Bld) 2.0 % Normal 0.9-7.0 [facility] Comment on above: Performed By: #### C BC ####[facility] Lqbwupxjtc664[address] [place], [place] [address]Dr. Airam Tripathi Erythrocyte distribution width (RBC) [Ratio] 12.8 % Normal 11.0-15.0 [facility] Comment on above: Performed By: #### C BC ####[facility] Nhoaujdvit4[address] [place] [address]Dr. Airam Tripathi Hematocrit (Bld) [Volume fraction] 27.4 % Critically low 36.0-48.0 [facility] Comment on above: Performed By: #### C BC ####[facility] Agxtzqfqis190[address] [place], [place] [address]Dr. Airam Tripathi Hemoglobin (Bld) [Mass/Vol] 8.7 g/dL Critically low 12.0-16.0 [facility] Comment on above: Performed By: #### C BC ####[facility] Imjxpttvtt[address] [place], [place] [address]Dr. Airam Tripathi IG # 0.11 10e3/ul Critically high 0.00-0.03 [facility] Comment on above: Performed By: #### C BC ####[facility] Okluvecrkd7[address] [place] [phone]. Airam Tripathi IG % 1.1 % Critically high 0.0-0.5 [facility] Comment on above: Performed By: #### C BC ####[facility] Obmqkqcazt2546 [place] [phone]. Airam Tripathi LYMPH # 0.9 103/ul Critically low 1.2-3.8 [facility] Comment on above: Performed By: #### C BC ####[facility] Cptnzrrfio2817 [place] [phone]. Airam Tripathi Lymphocytes/100 WBC (Bld) 9.7 % Critically low 20.5-60.0 [facility] Comment on above: Performed By: #### C BC ####[facility] Wlrxypyicw2816 [place] [phone]. Airam Tripathi MANUAL DIFF REQ NO Normal [facility] Comment on above: Performed By: #### C BC ####[facility] Vxbtbmtvck7419 [place] [phone]. Airam Tripathi MCH (RBC) [Entitic mass] 30.0 pg Normal 26.7-34.0 [facility] Comment on above: Performed By: #### C BC ####[facility] Lqfvvyxvxw6757 [place] [phone]. Airam Tripathi MCHC (RBC) [Mass/Vol] 31.8 g/dL Normal 29.9-35.2 [facility] Comment on above: Performed By: #### C BC ####[facility] Yilmfqjleb6[address] [place] [phone]. Airam Tripathi MCV (RBC) [Entitic vol] 94.5 fL Normal 81.0-99.0 [facility] Comment on above: Performed By: #### C BC ####[facility] [address]woavudfm4[address] [place] [phone]. Airam Tripathi MONO # 0.6 103/ul Normal 0.3-0.8 [facility] Comment on above: Performed By: #### C BC ####[facility] [address]oirwg[address] [place] [id number]. Airam Tripathi Monocytes/100 WBC (Bld) 5.7 % Normal 1.7-12.0 [facility] Comment on above: Performed By: #### C BC ####[facility] Zgkxhsnpkn[address] [place] [address]Dr. Airam Tripathi NEUT # 7.8 103/ul Critically high 1.4-6.5 [facility] Comment on above: Performed By: #### C BC ####[facility] Ukuncbabey[address] [address]Dr. Airam Tripathi Neutrophils/100 WBC (Bld) 81.2 % Critically high 43.0-75.0 [facility] Comment on above: Performed By: #### C BC ####[facility] [address]fqaktw[address] [place] [address]Dr. Airam Tripathi Platelet mean volume (Bld) [Entitic vol] 8.6 fL Critically low 9.5-13.5 [facility] Comment on above: Performed By: #### C BC ####[facility] Csocpybzal[address] [place] [address]Dr. Airam Tripathi PLT 283 103/ul Normal 150-450 [facility] Comment on above: Performed By: #### C BC ####[facility] Inqqguhetp[address] [place] [address]Dr. Airam Tripathi RBC 2.90 106/ul Critically low 4.20-5.40 [facility] Comment on above: Performed By: #### C BC ####[facility] Ajsdlmbipb[address] [place], [place] [address]Dr. Airam Tripathi WBC 9.6 103/ul Normal 4.0-11.0 [facility] Comment on above: Performed By: #### C BC ####[facility] Qoofsdbrkk140[address] [place], [place] [address]Dr. Airam Tripathi OSMOLALITYon 06-14-2022 Osmolality [Osmolality] 273 mosm/kg Critically low 275-295 [facility] Comment on above: Performed By: #### O SMO ####[facility] Mmrgusuhuo[address] [place] [address]Dr. Airam Tripathi PROF 14(COMP METB)on 022 Albumin [Mass/Vol] 3.2 g/dL Critically low 3.4-5.0 [facility] Comment on above: Performed By: #### B COMMERCIAL LOAN OFFICER, CMP ####[facility] Idqsmejxdk[address] [place], [place] [address]Dr. Airam Tripathi Albumin/Globulin [Mass ratio] 1.0 {ratio} Normal [facility] Comment on above: Performed By: #### B COMMERCIAL LOAN OFFICER, CMP ####[facility] Wjvtybsdyp[address] [place], [place] [address]Dr. Airam Tripathi ALP [Catalytic activity/Vol] 154 U/L Critically high 46-116 [facility] Comment on above: Performed By: #### B COMMERCIAL LOAN OFFICER, CMP ####[facility] Dyojagmpen[address] [place], [place] [address]Dr. Airam Tripathi ALT [Catalytic activity/Vol] 17 U/L Normal 14-59 [facility] Comment on above: Performed By: #### B COMMERCIAL LOAN OFFICER, CMP ####[facility] Gprjzkuavw[address] [place], [place] [address]Dr. Airam Tripathi Anion gap [Moles/Vol] 12.0 mmol/L Normal [facility] Comment on above: Performed By: #### B COMMERCIAL LOAN OFFICER, CMP ####[facility] Ltvfcqvjfw[address] [place], [place] [address]Dr. Airam Tripathi AST [Catalytic activity/Vol] 25 U/L Normal 15-37 [facility] Comment on above: Performed By: #### B COMMERCIAL LOAN OFFICER, CMP ####[facility] Teewbknbti[address] [place], [place] [address]Dr. Airam Tripathi Bilirubin [Mass/Vol] 0.3 mg/dL Normal 0.2-1.0 [facility] Comment on above: Performed By: #### B COMMERCIAL LOAN OFFICER, CMP ####[facility] Kvyiftgdht[address] [place], [place] [address]Dr. Airam Tripathi Calcium [Mass/Vol] 7.6 mg/dL Critically low 8.5-10.1 [facility] Comment on above: Performed By: #### B COMMERCIAL LOAN OFFICER, CMP ####[facility] Ufwrsjjuks[address]13[address] [place], [place] [address]Dr. Airam Tripathi Chloride [Moles/Vol] 92 mmol/L Critically low 98-107 [facility] Comment on above: Performed By: #### B COMMERCIAL LOAN OFFICER, CMP ####[facility] Tebdjkpuzk[address] [place], [place] [address]Dr. Airam Tripathi CO2 [Moles/Vol] 25.2 mmol/L Normal 21.0-32.0 [facility] Comment on above: Performed By: #### B COMMERCIAL LOAN OFFICER, CMP ####[facility] Omymzqfdmf[address] [place], [place] [address]Dr. Airam Tripathi Creatinine [Mass/Vol] 1.83 mg/dL Critically high 0.55-1.02 [facility] Comment on above: Performed By: #### B COMMERCIAL LOAN OFFICER, CMP ####[facility] Mwfxxsfqso913[address] [place], [place] [address]Dr. Airam Tripathi EGFR-AF ROMANIAN 34 mL/min/1.73m2 Critically low >=60 [facility] Comment on above: Performed By: #### B COMMERCIAL LOAN OFFICER, CMP ####[facility] Xhwzkwgvfo[address] [place], [place] [address]Dr. Airam Tripathi EGFR-NON AF ROMANIAN 28 mL/min/1.73m2 Critically low >=60 [facility] Comment on above: Performed By: #### B COMMERCIAL LOAN OFFICER, CMP ####[facility] Dbpyhrxgrv[address] [place], [place] [address]Dr. Airam Tripathi Globulin (S) [Mass/Vol] 3.1 g/dL Normal [facility] Comment on above: Performed By: #### B COMMERCIAL LOAN OFFICER, CMP ####[facility] Uahixvlzos998[address] [place], [place] [address]Dr. Airam Tripathi Glucose [Mass/Vol] 77 mg/dL Normal 74-106 [facility] Comment on above: Performed By: #### B COMMERCIAL LOAN OFFICER, CMP ####[facility] Oulkkjvcsd686[address] [place], [place] [address]Dr. Airam Tripathi Potassium [Moles/Vol] 4.2 mmol/L Normal 3.5-5.1 [facility] Comment on above: Performed By: #### B COMMERCIAL LOAN OFFICER, CMP ####[facility] Pugtmkdttb250[address] [place], [place] [address]Dr. Airam Tripathi Protein [Mass/Vol] 6.3 g/dL Critically low 6.4-8.2 [facility] Comment on above: Performed By: #### B COMMERCIAL LOAN OFFICER, CMP ####[facility] Oeljzfadxb120[address] [place], [place] [address]Dr. Airam Tripathi Sodium [Moles/Vol] 125 mmol/L Critically low 136-145 [facility] Comment on above: Performed By: #### B COMMERCIAL LOAN OFFICER, CMP ####[facility] Vtonwowwdm196[address] [place], [place] [address]Dr. Airam Tripathi Urea nitrogen [Mass/Vol] 35.0 mg/dL Critically high 7.0-18.0 [facility] Comment on above: Performed By: #### B COMMERCIAL LOAN OFFICER, CMP ####[facility] Uuftfzvtdy27[address] [place], [place] [address]Dr. Airam Tripathi Urea nitrogen/Creatinine [Mass ratio] 19.1 mg/mg Normal [facility] Comment on above: Performed By: #### B COMMERCIAL LOAN OFFICER, CMP ####[facility] Jcytvfxyzl075[address] [place], [place] [address]Dr. Airam Tripathi UA RANDOM W/MICROSCOPICon BACTERIA TRACE Abnormal NONE SEEN [facility] Comment on above: Performed By: #### U AMIC ####[facility] Swahcdzmne[address] [place], [place] [address]Dr. Airam Tripathi Bilirubin Ql (U) Negative Normal NEGATIVE [facility] Comment on above: Performed By: #### U AMIC ####[facility] Fhmtnknmgy[address] [place], [place] [address]Dr. Airam Tripathi CAST NONE SEEN Normal NONE SEEN [facility] Comment on above: Performed By: #### U AMIC ####[facility] Tuarcmgaie[address] [place], [place] [address]Dr. Airam Tripathi Clarity (U) CLEAR Normal CLEAR [facility] Comment on above: Performed By: #### U AMIC ####[facility] [address] [place] [address]Dr. Yilan Tripathi Color (U) LT. YELLOW Normal YELLOW [facility] Comment on above: Performed By: #### U AMIC ####[facility] Zdorbulpse[address] [place] [address]Dr. Selenalan Tripathi Crystals LM Nom (Urine sed) NONE SEEN Normal NONE SEEN [facility] Comment on above: Performed By: #### U AMIC ####[facility] B[address]zbumg[address] [place] [address]Dr. Yilan Tripathi Epithelial cells LM Ql (Urine sed) FEW Abnormal NONE SEEN /RARE [facility] Comment on above: Performed By: #### U AMIC ####[facility] Dmlwpiizhs20[address] [place], [place] [address]Dr. Selenalan Tripathi Glucose Ql (U) Negative Normal NEGATIVE [facility] Comment on above: Performed By: #### U AMIC ####[facility] Lywqfhifni[address] [place], [place] [address]Dr. Yilan Tripathi Hemoglobin Ql (U) Negative Normal NEGATIVE [facility] Comment on above: Performed By: #### U AMIC ####[facility] Dylijjrmlb1319[address] [place], [place] [address]Dr. Yilan Tripathi Ketones Ql (U) Negative Normal NEGATIVE [facility] Comment on above: Performed By: #### U AMIC ####[facility] Bhgzmckaem332[address] [place], [place] [address]Dr. Yilan Tripathi LEUKOCYTES MODERATE Abnormal NEGATIVE [facility] Comment on above: Performed By: #### U AMIC ####[facility] Akktkw[address]zag[address] [place] [address]Dr. Yilan Tripathi MUCOUS NONE SEEN Normal NONE SEEN [facility] Comment on above: Performed By: #### U AMIC ####[facility] Kkwvfx[address]zv[address] [place] [address]Dr. Yilan Tripathi Nitrite Ql (U) Negative Normal NEGATIVE [facility] Comment on above: Performed By: #### U AMIC ####[facility] Suzxpcgrdx[address] [place] [address]Dr. Selenaneil Tripathi pH (U) 5.5 [pH] Normal 5-9 [facility] Comment on above: Performed By: #### U AMIC ####[facility] Xvp[address]ervcu[address] [place] [address]Dr. Airam Tripathi RBC 0-2 Normal 0-2 [facility] Comment on above: Performed By: #### U AMIC ####[facility] Gjyzfjvush[address] [place], [place] [address]Dr. Airam Tripathi SPEC GRAVITY 1.020 Normal 1.005-<=1.02 5 [facility] Comment on above: Performed By: #### U AMIC ####[facility] [address]vystesds[address] [place], [place] [address]Dr. Airam Tripathi UA PROTEIN Negative Normal NEGATIVE/ TRACE [facility] Comment on above: Performed By: #### U AMIC ####[facility] Gsmaojkaxi[address] [place], [place] [address]Dr. Airam Tripathi Urobilinogen Qn (U) 0.2 {Ligia'U}/dL Normal 0.2 - 1. 0 [facility] Comment on above: Performed By: #### U AMIC ####[facility] Ayindvmyly[address] [place], [place] [address]Dr. Selenaneil Tripathi WBC 5-10 Abnormal NONE SEEN [facility] Comment on above: Performed By: #### U AMIC ####[facility] Unidbxngog[address] [place], [place] [address]Dr. Airam Tripathi BNPon 06-13-2022 Natriuretic peptide B (Bld) [Mass/Vol] 1496.0 pg/mL Critically high <=900.0 [facility] Comment on above: Performed By: #### T 4, BNP, MG, TSH, CMADM, CRP, CMP ####[facility] Fntraqkxsz[address] [place], [place] [address]Dr. Airam Tripathi CARDIAC CONSUELO 3-6on 2 CK [Catalytic activity/Vol] 125 U/L Normal 26-192 [facility] Comment on above: Performed By: #### C MREP ####[facility] X[address]hrn[address] [place] [id number]. Airam Tripathi CK.MB [Mass/Vol] ng/mL Normal <=3.60 [facility] Comment on above: Performed By: #### C MREP ####[facility] Opryexkanz[address] [place] [address]Dr. Airam Tripathi HSTROP 5.8 pg/mL Normal 4.0-51.3 [facility] Comment on above: Result Comment: CUT- OFF POINTS HAVE BEEN ESTABLISHED BASED ON THE FOURTH UNIVERSAL DEFINITIONS OF MYOCARDIALINFARCTION. THE UPPER REFERENCE LIMIT (URL) OF TROPONIN, DEFINED THE 99TH PERCENTILE OFcTnI DISTRIBUTION IN A REFERENCE POPULATION, HAS BEEN CONFIRMED THE DECISION THRESHOLDFOR DE DIAGNOSIS. Performed By: #### C MREP ####[facility] [address] [place] [address]Dr. Airam Tripathi CARDIAC CONSUELO ADMITon 022 CK [Catalytic activity/Vol] 121 U/L Normal 26-192 [facility] Comment on above: Performed By: #### T 4, BNP, MG, TSH, CMADM, CRP, CMP ####[facility] Agnxbreljy[address] [place] [address]Dr. Airam Tripathi CK.MB [Mass/Vol] 3.06 ng/mL Normal <=3.60 [facility] Comment on above: Performed By: #### T 4, BNP, MG, TSH, CMADM, CRP, CMP ####[facility] [address]cmvh[address] [place] [address]Dr. Airam Tripathi HSTROP 6.9 pg/mL Normal 4.0-51.3 [facility] Comment on above: Result Comment: CUT- OFF POINTS HAVE BEEN ESTABLISHED BASED ON THE FOURTH UNIVERSAL DEFINITIONS OF MYOCARDIALINFARCTION. THE UPPER REFERENCE LIMIT (URL) OF TROPONIN, DEFINED THE 99TH PERCENTILE OFcTnI DISTRIBUTION IN A REFERENCE POPULATION, HAS BEEN CONFIRMED THE DECISION THRESHOLDFOR DE DIAGNOSIS. Performed By: #### T 4, BNP, MG, TSH, CMADM, CRP, CMP ####[facility] Qpurjfeikk[address] [place] [address]Dr. Airam Tripathi KATHY 124 ng/mL Critically high 9-82 [facility] Comment on above: Performed By: #### T 4, BNP, MG, TSH, CMADM, CRP, CMP ####[facility] D[address]kzdodex[address] [place] [phone]. Airam Tripathi CBC AUTO DIFFon 06-13-2022 BASO # 0.0 103/ul Normal 0.0-0.1 [facility] Comment on above: Performed By: #### C BC ####[facility] Nccbjqpdot75[address] [place] [phone]. Airam Tripathi Basophils/100 WBC (Bld) 0.2 % Normal 0.2-2.0 [facility] Comment on above: Performed By: #### C BC ####[facility] Tvpycvxxmr[address] [place], [place] [address]Dr. Airam Tripathi EO # 0.2 103/ul Normal 0.0-0.7 [facility] Comment on above: Performed By: #### C BC ####[facility] Nqlexxaote[address] [place], [place] [address]Dr. Airam Tripathi Eosinophils/100 WBC (Bld) 1.5 % Normal 0.9-7.0 [facility] Comment on above: Performed By: #### C BC ####[facility] Gopnnqqrkb[address] [place], [place] [address]Dr. Airam Tripathi Erythrocyte distribution width (RBC) [Ratio] 12.7 % Normal 11.0-15.0 [facility] Comment on above: Performed By: #### C BC ####[facility] Mrtwvywxjt[address] [place], [place] [address]Dr. Airam Tripathi Hematocrit (Bld) [Volume fraction] 30.0 % Critically low 36.0-48.0 [facility] Comment on above: Performed By: #### C BC ####[facility] Jtzspygxtz[address] [place], [place] [address]Dr. Airam Tripathi Hemoglobin (Bld) [Mass/Vol] 9.6 g/dL Critically low 12.0-16.0 [facility] Comment on above: Performed By: #### C BC ####[facility] V[address]vyc[address] [place] [phone]. Airam Tripathi IG # 0.11 10e3/ul Critically high 0.00-0.03 [facility] Comment on above: Performed By: #### C BC ####[facility] Tpnuafadro[address] [place] [phone]. Airam Tripathi IG % 1.1 % Critically high 0.0-0.5 [facility] Comment on above: Performed By: #### C BC ####[facility] Oonesykxyu[address] [place] [address]Dr. Airam Tripathi LYMPH # 1.5 103/ul Normal 1.2-3.8 [facility] Comment on above: Performed By: #### C BC ####[facility] Qawqgoufeb36[address] [place] [address]Dr. Airam Tripathi Lymphocytes/100 WBC (Bld) 14.9 % Critically low 20.5-60.0 [facility] Comment on above: Performed By: #### C BC ####[facility] [address]od[address]nyete[address] [place] [address]Dr. Airam Tripathi MANUAL DIFF REQ NO Normal [facility] Comment on above: Performed By: #### C BC ####[facility] Alqovdvgfx[address] [place] [address]Dr. Ariam Tripathi MCH (RBC) [Entitic mass] 30.0 pg Normal 26.7-34.0 [facility] Comment on above: Performed By: #### C BC ####[facility] Zkhwsuhhob34[address] [place] [address]Dr. Airam Tripathi MCHC (RBC) [Mass/Vol] 32.0 g/dL Normal 29.9-35.2 [facility] Comment on above: Performed By: #### C BC ####[facility] Vsbjujvfqt[address] [place], [place] [address]Dr. Airam Tripathi MCV (RBC) [Entitic vol] 93.8 fL Normal 81.0-99.0 [facility] Comment on above: Performed By: #### C BC ####[facility] Kmstehmvin[address] [place] [phone]. Airam Tripathi MONO # 0.8 103/ul Normal 0.3-0.8 [facility] Comment on above: Performed By: #### C BC ####[facility] Ibzmzaekco[address] [place] [phone]. Airam Tripathi Monocytes/100 WBC (Bld) 7.3 % Normal 1.7-12.0 [facility] Comment on above: Performed By: #### C BC ####[facility] Gnltsgdqlk[address] [place] [phone]. Airam Tripathi NEUT # 7.8 103/ul Critically high 1.4-6.5 [facility] Comment on above: Performed By: #### C BC ####[facility] G[address]cvxizsd[address] [place] [address]Dr. Airam Tripathi Neutrophils/100 WBC (Bld) 75.0 % Normal 43.0-75.0 [facility] Comment on above: Performed By: #### C BC ####[facility] Vow[address]nyhphl[address] [place] [phone]. Airam Tripathi Platelet mean volume (Bld) [Entitic vol] 9.1 fL Critically low 9.5-13.5 [facility] Comment on above: Performed By: #### C BC ####[facility] C[address]mzagxcf[address] [place] [phone]. Airam Tripathi PLT 341 103/ul Normal 150-450 [facility] Comment on above: Performed By: #### C BC ####[facility] Urjsnkfxdx[address] [place] [phone]. Airam Tripathi RBC 3.20 106/ul Critically low 4.20-5.40 [facility] Comment on above: Performed By: #### C BC ####[facility] Gedgbyloxy[address] [place] [phone]. Airam Tripathi WBC 10.4 103/ul Normal 4.0-11.0 [facility] Comment on above: Performed By: #### C BC ####[facility] [address]efccxqqxx[address] [place], [place] [address]Dr. Airam Tripathi CRPon 06-13-2022 CRP [Mass/Vol] mg/L Normal <=1.0 [facility] Comment on above: Performed By: #### T 4, BNP, MG, TSH, CMADM, CRP, CMP ####[facility] Gppwiflvlh[address] [place], [place] [address]Ju. Airam Tripathi CT HEAD WO CONon 06-13-2022 CT HEAD WO CON Normal [facility] Covid-19 PCR (CVDTBH)on 05-26 SARS-CoV-2 (COVID-19) RNA MIKE+probe Ql (Unsp spec) Not detected Normal NOT DETECTED [facility] Comment on above: Result Comment: When [...] for this test is supported by the [place] of Health and Human Service's declaration that [...] be used). Performed By: #### C VDTBH ####[facility] Nvxiefenix[address] [place] [phone]. Airam Tripathi LACTATE/LACTIC ACIDon 2021 Lactate [Moles/Vol] 0.5 mmol/L Normal 0.4-1.9 [facility] Comment on above: Performed By: #### L ACT ####[facility] [address]jthzrcm[address] [place] [phone]. Airam Tripathi MAGNESIUMon 06-13-2022 Magnesium [Mass/Vol] 1.9 mg/dL Normal 1.8-2.4 [facility] Comment on above: Performed By: #### T 4, BNP, MG, TSH, CMADM, CRP, CMP ####[facility] Qdpfapmxrn[address] [place] [address]Dr. Airam Tripathi PROF 14(COMP METB)on 022 Albumin [Mass/Vol] 3.8 g/dL Normal 3.4-5.0 [facility] Comment on above: Performed By: #### T 4, BNP, MG, TSH, CMADM, CRP, CMP ####[facility] Gyyhobsjuq[address] [place] [address]Dr. Airam Tripathi Albumin/Globulin [Mass ratio] 1.1 {ratio} Normal [facility] Comment on above: Performed By: #### T 4, BNP, MG, TSH, CMADM, CRP, CMP ####[facility] Axwetunuao[address] [place] [address]Dr. Airam Tripathi ALP [Catalytic activity/Vol] 161 U/L Critically high 46-116 [facility] Comment on above: Performed By: #### T 4, BNP, MG, TSH, CMADM, CRP, CMP ####[facility] S[address]byql[address] [place] [address]Dr. Airam Tripathi ALT [Catalytic activity/Vol] 21 U/L Normal 14-59 [facility] Comment on above: Performed By: #### T 4, BNP, MG, TSH, CMADM, CRP, CMP ####[facility] Kvzweiobhk[address] [place] [address]Dr. Airam Tripathi Anion gap [Moles/Vol] 12.6 mmol/L Normal [facility] Comment on above: Performed By: #### T 4, BNP, MG, TSH, CMADM, CRP, CMP ####[facility] Wgnitqtcvo67[address] [place] [address]Dr. Airam Tripathi AST [Catalytic activity/Vol] 30 U/L Normal 15-37 [facility] Comment on above: Performed By: #### T 4, BNP, MG, TSH, CMADM, CRP, CMP ####[facility] [address]jlmfnyzap[address] [place] [address]Dr. Airam Tripathi Bilirubin [Mass/Vol] 0.3 mg/dL Normal 0.2-1.0 [facility] Comment on above: Performed By: #### T 4, BNP, MG, TSH, CMADM, CRP, CMP ####[facility] Ntmksnjvqj5[address] [place] [address]Dr. Airam Tripathi Calcium [Mass/Vol] 8.8 mg/dL Normal 8.5-10.1 [facility] Comment on above: Performed By: #### T 4, BNP, MG, TSH, CMADM, CRP, CMP ####[facility] Uerkdlzygh6[address] [place] [address]Dr. Airam Tripathi Chloride [Moles/Vol] 91 mmol/L Critically low 98-107 [facility] Comment on above: Performed By: #### T 4, BNP, MG, TSH, CMADM, CRP, CMP ####[facility] Kgemtxxbrn4[address] [place] [address]Dr. Airam Tripathi CO2 [Moles/Vol] 26.9 mmol/L Normal 21.0-32.0 [facility] Comment on above: Performed By: #### T 4, BNP, MG, TSH, CMADM, CRP, CMP ####[facility] Godxswhnri[address] [place] [address]Dr. Airam Tripathi Creatinine [Mass/Vol] 1.83 mg/dL Critically high 0.55-1.02 [facility] Comment on above: Performed By: #### T 4, BNP, MG, TSH, CMADM, CRP, CMP ####[facility] Hxpfayjggl[address] [place] [address]Dr. Airam Tripathi EGFR-AF ROMANIAN 34 mL/min/1.73m2 Critically low >=60 [facility] Comment on above: Performed By: #### T 4, BNP, MG, TSH, CMADM, CRP, CMP ####[facility] Qymaexvqfp06[address] [place] [address]Dr. Airam Tripathi EGFR-NON AF ROMANIAN 28 mL/min/1.73m2 Critically low >=60 [facility] Comment on above: Performed By: #### T 4, BNP, MG, TSH, CMADM, CRP, CMP ####[facility] Oyowyewpwx[address] [place] [address]Dr. Airam Tripathi Globulin (S) [Mass/Vol] 3.5 g/dL Normal [facility] Comment on above: Performed By: #### T 4, BNP, MG, TSH, CMADM, CRP, CMP ####[facility] [address]jmdqsyued[address] [place], [place] [address]Dr. Selenalan Tripathi Glucose [Mass/Vol] 96 mg/dL Normal 74-106 [facility] Comment on above: Performed By: #### T 4, BNP, MG, TSH, CMADM, CRP, CMP ####[facility] Isusfupsrk[address] [place], [place] [address]Dr. Airam Tripathi Potassium [Moles/Vol] 4.5 mmol/L Normal 3.5-5.1 [facility] Comment on above: Performed By: #### T 4, BNP, MG, TSH, CMADM, CRP, CMP ####[facility] Yucauiucac[address] [place], [place] [address]Dr. Selenalan Tripathi Protein [Mass/Vol] 7.3 g/dL Normal 6.4-8.2 [facility] Comment on above: Performed By: #### T 4, BNP, MG, TSH, CMADM, CRP, CMP ####[facility] Rghgiuerom[address] [place], [place] [address]Dr. Selenalan Tripathi Sodium [Moles/Vol] 126 mmol/L Critically low 136-145 [facility] Comment on above: Performed By: #### T 4, BNP, MG, TSH, CMADM, CRP, CMP ####[facility] Rnvzqwgtkp[address] [place], [place] [address]Dr. Selenalan Tripathi Urea nitrogen [Mass/Vol] 34.0 mg/dL Critically high 7.0-18.0 [facility] Comment on above: Performed By: #### T 4, BNP, MG, TSH, CMADM, CRP, CMP ####[facility] [address]cdjxbepje[address] [place], [place] [address]Dr. Selenalan Tripathi Urea nitrogen/Creatinine [Mass ratio] 18.6 mg/mg Normal [facility] Comment on above: Performed By: #### T 4, BNP, MG, TSH, CMADM, CRP, CMP ####[facility] [address] [place] [address]Dr. Airam Tripathi Albumin [Mass/Vol] 3.4 g/dL Normal 3.4-5.0 [facility] Comment on above: Performed By: #### C MP ####[facility] Obcthadbij[address] [place], [place] [address]Dr. Airam Tripathi Albumin/Globulin [Mass ratio] 1.0 {ratio} Normal [facility] Comment on above: Performed By: #### C MP ####[facility] Tduzcqgwzg5[address] [place], [place] [address]Dr. Airam Tripathi ALP [Catalytic activity/Vol] 151 U/L Critically high 46-116 [facility] Comment on above: Performed By: #### C MP ####[facility] Mblmyzmnqj9215[address] [place], [place] [address]Dr. Airam Tripathi ALT [Catalytic activity/Vol] 20 U/L Normal 14-59 [facility] Comment on above: Performed By: #### C MP ####[facility] Lmkoyfxakk028[address] [place], [place] [address]Dr. Airam Tripathi Anion gap [Moles/Vol] 11.7 mmol/L Normal [facility] Comment on above: Performed By: #### C MP ####[facility] Jxuwossfro467407 [address] [place], [place] [address]Dr. Airam Tripathi AST [Catalytic activity/Vol] 28 U/L Normal 15-37 [facility] Comment on above: Performed By: #### C MP ####[facility] Epftqyufhj444[address] [place], [place] [address]Dr. Airam Tripathi Bilirubin [Mass/Vol] 0.3 mg/dL Normal 0.2-1.0 [facility] Comment on above: Performed By: #### C MP ####[facility] Yndbvdpchu543[address] [place], [place] [address]Dr. Airam Tripathi Calcium [Mass/Vol] 8.5 mg/dL Normal 8.5-10.1 [facility] Comment on above: Performed By: #### C MP ####[facility] P[address]qxpzlh[address] [place] [address]Dr. Airam Deuce Chloride [Moles/Vol] 91 mmol/L Critically low 98-107 [facility] Comment on above: Performed By: #### C MP ####[facility] Hwabsrbosd4[address] [place] [address]Dr. Airam Deuce CO2 [Moles/Vol] 28.3 mmol/L Normal 21.0-32.0 [facility] Comment on above: Performed By: #### C MP ####[facility] Wfegokecwf648[address] [place], [place] [address]Dr. Airam Deuce Creatinine [Mass/Vol] 1.68 mg/dL Critically high 0.55-1.02 [facility] Comment on above: Performed By: #### C MP ####[facility] Fhztkosokw982[address] [place], [place] [address]Dr. Airam Deuce EGFR-AF ROMANIAN 38 mL/min/1.73m2 Critically low >=60 [facility] Comment on above: Performed By: #### C MP ####[facility] Gbvwayeivv769307 [address] [place], [place] [address]Dr. Airam Deuce EGFR-NON AF ROMANIAN 31 mL/min/1.73m2 Critically low >=60 [facility] Comment on above: Performed By: #### C MP ####[facility] Gjvzfevfiw304[address] [place], [place] [address]Dr. Airam Deuce Globulin (S) [Mass/Vol] 3.5 g/dL Normal [facility] Comment on above: Performed By: #### C MP ####[facility] Arvllvhffd486907 [address] [place], [place] [address]Dr. Airam Tripathi Glucose [Mass/Vol] 74 mg/dL Normal 74-106 [facility] Comment on above: Performed By: #### C MP ####[facility] Wkqhixrhtr986[address] [place], [place] [address]Dr. Airam Tripathi Potassium [Moles/Vol] 4.0 mmol/L Normal 3.5-5.1 [facility] Comment on above: Performed By: #### C MP ####[facility] Rdtmpykana149[address] [place], [place] [address]Dr. Airam Tripathi Protein [Mass/Vol] 6.9 g/dL Normal 6.4-8.2 [facility] Comment on above: Performed By: #### C MP ####[facility] Keuiwoybtb918[address] [place], [place] [address]Dr. Airam Tripathi Sodium [Moles/Vol] 127 mmol/L Critically low 136-145 [facility] Comment on above: Performed By: #### C MP ####[facility] Zrgqhbbzgn047[address] [place], [place] [address]Dr. Airam Tripathi Urea nitrogen [Mass/Vol] 29.0 mg/dL Critically high 7.0-18.0 [facility] Comment on above: Performed By: #### C MP ####[facility] Szgipttwdl528507 [address] [place], [place] [address]Dr. Airam Tripathi Urea nitrogen/Creatinine [Mass ratio] 17.3 mg/mg Normal [facility] Comment on above: Performed By: #### C MP ####[facility] Wlqwicugtw930[address] [place], [place] [address]Dr. Airam Tripathi T4on 06-13-2022 T4 [Mass/Vol] 6.80 ug/dL Normal 4.80-13.90 [facility] Comment on above: Performed By: #### T 4, BNP, MG, TSH, CMADM, CRP, CMP ####[facility] Fbupohthzh556[address] [place], [place] [address]Dr. Airam Tripathi TSHon 06-13-2022 TSH 0.101 uIU/mL Critically low 0.358-3.740 [facility] Comment on above: Performed By: #### T 4, BNP, MG, TSH, CMADM, CRP, CMP ####[facility] Ooodidxqei920[address] [place], [place] [address]Dr. Airam Tripathi OSMOLALITYon 06-08-2022 Osmolality [Osmolality] 272 mosm/kg Critically low 275-295 [facility] Comment on above: Performed By: #### O SMO ####[facility] R[address]zcbblus[address] [place] [address]Dr. Airam Tripathi CBC AUTO DIFFon 06-06-2022 BASO # 0.0 103/ul Normal 0.0-0.1 [facility] Comment on above: Performed By: #### C BC ####[facility] Hpxyokbqxx264[address] [place], [place] [address]Dr. Selenaneil Tripathi Basophils/100 WBC (Bld) 0.3 % Normal 0.2-2.0 [facility] Comment on above: Performed By: #### C BC ####[facility] Bwyyhbsvox230[address] [place], [place] [address]Dr. Selenaneil Tripathi EO # 0.2 103/ul Normal 0.0-0.7 [facility] Comment on above: Performed By: #### C BC ####[facility] Imvedtqxpu041707 [address] [place], [place] [address]Dr. Selenaneil Tripathi Eosinophils/100 WBC (Bld) 2.5 % Normal 0.9-7.0 [facility] Comment on above: Performed By: #### C BC ####[facility] Xbcjkqeqbw306907 [address] [place], [place] [address]Dr. Airam Tripathi Erythrocyte distribution width (RBC) [Ratio] 12.9 % Normal 11.0-15.0 [facility] Comment on above: Performed By: #### C BC ####[facility] Cfmipwplax954[address] [place], [place] [address]Dr. Airam Tripathi Hematocrit (Bld) [Volume fraction] 29.8 % Critically low 36.0-48.0 [facility] Comment on above: Performed By: #### C BC ####[facility] Kfobhtnipo256[address] [place], [place] [address]Dr. Selenaneil Tripathi Hemoglobin (Bld) [Mass/Vol] 9.7 g/dL Critically low 12.0-16.0 [facility] Comment on above: Performed By: #### C BC ####[facility] Kwvichhjru328[address] [place], [place] [address]Dr. Airam Tripathi IG # 0.03 10e3/ul Normal 0.00-0.03 [facility] Comment on above: Performed By: #### C BC ####[facility] Wecm[address]rszus216[address] [place] [address]DrKianna Airam Tripathi IG % 0.3 % Normal 0.0-0.5 [facility] Comment on above: Performed By: #### C BC ####[facility] Pmfvbqlkgj678[address] [place], [place] [address]DrKianna Airam Tripathi LYMPH # 1.3 103/ul Normal 1.2-3.8 [facility] Comment on above: Performed By: #### C BC ####[facility] Tcatjwurne509[address] [place], [place] [address]DrKianna Airam Tripathi Lymphocytes/100 WBC (Bld) 14.6 % Critically low 20.5-60.0 [facility] Comment on above: Performed By: #### C BC ####[facility] Agntdjxgkq279[address] [place], [place] [address]DrKianna Airam Tripathi MANUAL DIFF REQ NO Normal [facility] Comment on above: Performed By: #### C BC ####[facility] Cdpucmtkhb859[address] [place], [place] [address]DrKianna Airam Tripathi MCH (RBC) [Entitic mass] 30.6 pg Normal 26.7-34.0 [facility] Comment on above: Performed By: #### C BC ####[facility] Yukwgcohay730[address] [place], [place] [address]DrKianna Airam Tripathi MCHC (RBC) [Mass/Vol] 32.6 g/dL Normal 29.9-35.2 [facility] Comment on above: Performed By: #### C BC ####[facility] Kvxpnpnxlb0625[address] [place], [place] [address]DrKianna Airam Tripathi MCV (RBC) [Entitic vol] 94.0 fL Normal 81.0-99.0 [facility] Comment on above: Performed By: #### C BC ####[facility] Dlnlzdiklh37[address] [place], [place] [address]DrKianna Airam Deuce MONO # 0.5 103/ul Normal 0.3-0.8 [facility] Comment on above: Performed By: #### C BC ####[facility] [address] [place] [address]Dr. Airam Tripathi Monocytes/100 WBC (Bld) 5.7 % Normal 1.7-12.0 [facility] Comment on above: Performed By: #### C BC ####[facility] Cfq[address]chqmug39[address] [place] [address]Dr. Airam Tripathi NEUT # 6.9 103/ul Critically high 1.4-6.5 [facility] Comment on above: Performed By: #### C BC ####[facility] Iezjcelkto20[address] [place] [address]Dr. Airam Tripathi Neutrophils/100 WBC (Bld) 76.6 % Critically high 43.0-75.0 [facility] Comment on above: Performed By: #### C BC ####[facility] Lwsxbsphqs07[address] [place] [address]Dr. Airam Tripathi Platelet mean volume (Bld) [Entitic vol] 9.2 fL Critically low 9.5-13.5 [facility] Comment on above: Performed By: #### C BC ####[facility] Mxpkdptqhf046[address] [place], [place] [address]Dr. Airam Tripathi PLT 271 103/ul Normal 150-450 [facility] Comment on above: Performed By: #### C BC ####[facility] Qehpuexocc[address] [place] [address]Dr. Airam Tripathi RBC 3.17 106/ul Critically low 4.20-5.40 [facility] Comment on above: Performed By: #### C BC ####[facility] Tltahqjpdh6[address] [place] [address]Dr. Airam Tripathi WBC 9.1 103/ul Normal 4.0-11.0 [facility] Comment on above: Performed By: #### C BC ####[facility] Azxrdmtcug8430 [place] [address]DrKianna Tripathi PROF 14(COMP METB)on 022 Albumin [Mass/Vol] 3.4 g/dL Normal 3.4-5.0 [facility] Comment on above: Performed By: #### C MP ####[facility] Hvyntulneh[address] [place] [address]Dr. Airam Deuce Albumin/Globulin [Mass ratio] 1.0 {ratio} Normal [facility] Comment on above: Performed By: #### C MP ####[facility] Yxqxvcpaek49[address] [place] [address]Dr. Airam Deuce ALP [Catalytic activity/Vol] 156 U/L Critically high 46-116 [facility] Comment on above: Performed By: #### C MP ####[facility] Xkqkxldmob3668 [place] [address]Dr. Airam Tripathi ALT [Catalytic activity/Vol] 18 U/L Normal 14-59 [facility] Comment on above: Performed By: #### C MP ####[facility] Krpuauqkdq064[address] [place], [place] [address]Dr. Airam Tripathi Anion gap [Moles/Vol] 10.8 mmol/L Normal [facility] Comment on above: Performed By: #### C MP ####[facility] Lqjphpbotm146[address] [place], [place] [address]Dr. Selenaneil Tripathi AST [Catalytic activity/Vol] 27 U/L Normal 15-37 [facility] Comment on above: Performed By: #### C MP ####[facility] Ppaoluenig05[address] [place], [place] [address]Dr. Airam Tripathi Bilirubin [Mass/Vol] 0.2 mg/dL Normal 0.2-1.0 [facility] Comment on above: Performed By: #### C MP ####[facility] Ifqgyrjzoo40[address] [place], [place] [address]Dr. Airam Tripathi Calcium [Mass/Vol] 8.1 mg/dL Critically low 8.5-10.1 [facility] Comment on above: Performed By: #### C MP ####[facility] Fpsxgkuudl526[address] [place], [place] [address]Dr. Airam Tripathi Chloride [Moles/Vol] 92 mmol/L Critically low 98-107 [facility] Comment on above: Performed By: #### C MP ####[facility] [address]qshjcyanm[address] [place] [id number]. Airam Tripathi CO2 [Moles/Vol] 27.4 mmol/L Normal 21.0-32.0 [facility] Comment on above: Performed By: #### C MP ####[facility] Gtssbwcadx99[address] [place] [address]Dr. Airam Tripathi Creatinine [Mass/Vol] 1.57 mg/dL Critically high 0.55-1.02 [facility] Comment on above: Performed By: #### C MP ####[facility] Zqdkttvoqc8058 [place] [address]Dr. Airam Tripathi EGFR-AF ROMANIAN 41 mL/min/1.73m2 Critically low >=60 [facility] Comment on above: Performed By: #### C MP ####[facility] Sdvtbsegvk9368 [place] [address]Dr. Airam Tripathi EGFR-NON AF ROMANIAN 34 mL/min/1.73m2 Critically low >=60 [facility] Comment on above: Performed By: #### C MP ####[facility] Pyawjjfxyb7[address] [place] [address]Dr. Airam Tripathi Globulin (S) [Mass/Vol] 3.4 g/dL Normal [facility] Comment on above: Performed By: #### C MP ####[facility] Jsktafchgd8630 [place] [address]Dr. Airam Tripathi Glucose [Mass/Vol] 82 mg/dL Normal 74-106 [facility] Comment on above: Performed By: #### C MP ####[facility] Lfdhgpkdnz8[address] [place] [id number]. Airam Tripathi Potassium [Moles/Vol] 4.2 mmol/L Normal 3.5-5.1 [facility] Comment on above: Performed By: #### C MP ####[facility] Jghfkdvrku963[address] [place], [place] [address]Dr. Airam Tripathi Protein [Mass/Vol] 6.8 g/dL Normal 6.4-8.2 [facility] Comment on above: Performed By: #### C MP ####[facility] Lnbcybixch711[address] [place], [place] [address]Dr. Airam Tripathi Sodium [Moles/Vol] 126 mmol/L Critically low 136-145 [facility] Comment on above: Performed By: #### C MP ####[facility] Aasrjexfhh647[address] [place], [place] [address]Dr. Airam Deuce Urea nitrogen [Mass/Vol] 35.0 mg/dL Critically high 7.0-18.0 [facility] Comment on above: Performed By: #### C MP ####[facility] Ipipffhvfp137507 [address] [place], [place] [address]Dr. Airam Deuce Urea nitrogen/Creatinine [Mass ratio] 22.3 mg/mg Normal [facility] Comment on above: Performed By: #### C MP ####[facility] Nsorogzurr733[address] [place], [place] [address]DrKianna Airam Deuce OSMOLALITYon 06-02-2022 Osmolality [Osmolality] 276 mosm/kg Normal 275-295 [facility] Comment on above: Performed By: #### O SMO ####[facility] Ljnizxnzyf148507 [address] [place], [place] [address]Dr. Airam Deuce CBC AUTO DIFFon 06-01-2022 BASO # 0.1 103/ul Normal 0.0-0.1 [facility] Comment on above: Performed By: #### C BC ####[facility] Rvbyclkhxw6616[address] [place], [place] [address]Dr. Selenaneil Tripathi Basophils/100 WBC (Bld) 0.7 % Normal 0.2-2.0 [facility] Comment on above: Performed By: #### C BC ####[facility] Gexaxbaygm3937[address] [place], [place] [address]Dr. Airam Tripathi EO # 0.3 103/ul Normal 0.0-0.7 [facility] Comment on above: Performed By: #### C BC ####[facility] Cnimkpngrz177[address] [place], [place] [address]Dr. Airam Tripathi Eosinophils/100 WBC (Bld) 3.3 % Normal 0.9-7.0 [facility] Comment on above: Performed By: #### C BC ####[facility] Sorabflwuy258[address] [place], [place] [address]Dr. Airam Triptahi Erythrocyte distribution width (RBC) [Ratio] 13.2 % Normal 11.0-15.0 [facility] Comment on above: Performed By: #### C BC ####[facility] Eotnvspdft949[address] [place], [place] [address]Dr. Airam Tripathi Hematocrit (Bld) [Volume fraction] 32.0 % Critically low 36.0-48.0 [facility] Comment on above: Performed By: #### C BC ####[facility] Tdyywynugs6617[address] [place], [place] [address]Dr. Airam Tripathi Hemoglobin (Bld) [Mass/Vol] 10.3 g/dL Critically low 12.0-16.0 [facility] Comment on above: Performed By: #### C BC ####[facility] Gbxzflcmqc515[address] [place], [place] [address]Dr. Airam Tripathi IG # 0.05 10e3/ul Critically high 0.00-0.03 [facility] Comment on above: Performed By: #### C BC ####[facility] Cwdiogmtcj76[address] [place], [place] [address]Dr. Airam Tripathi IG % 0.7 % Critically high 0.0-0.5 [facility] Comment on above: Performed By: #### C BC ####[facility] Lsbvgxlbts407[address] [place], [place] [address]Dr. Airam Tripathi LYMPH # 1.7 103/ul Normal 1.2-3.8 [facility] Comment on above: Performed By: #### C BC ####[facility] Syvjqqchsy421[address] [place], [place] [address]Dr. Airam rTipathi Lymphocytes/100 WBC (Bld) 22.6 % Normal 20.5-60.0 [facility] Comment on above: Performed By: #### C BC ####[facility] Txylthjzfs709[address] [place], [place] [address]Dr. Airam Tripathi MANUAL DIFF REQ NO Normal [facility] Comment on above: Performed By: #### C BC ####[facility] Nostsknyjk[address] [place] [address]Dr. Airam Tripathi MCH (RBC) [Entitic mass] 30.8 pg Normal 26.7-34.0 [facility] Comment on above: Performed By: #### C BC ####[facility] Fybwlsfsvf5002 [place] [address]Dr. Airam Tripathi MCHC (RBC) [Mass/Vol] 32.2 g/dL Normal 29.9-35.2 [facility] Comment on above: Performed By: #### C BC ####[facility] Qfvfvokfck866[address] [place], [place] [address]Dr. Airam Tripathi MCV (RBC) [Entitic vol] 95.8 fL Normal 81.0-99.0 [facility] Comment on above: Performed By: #### C BC ####[facility] Jsfpbimldr340[address] [place], [place] [address]Dr. Airam Tripathi MONO # 0.6 103/ul Normal 0.3-0.8 [facility] Comment on above: Performed By: #### C BC ####[facility] Uoeabglpyf851707 [address] [place], [place] [address]Dr. Airam Tripathi Monocytes/100 WBC (Bld) 8.6 % Normal 1.7-12.0 [facility] Comment on above: Performed By: #### C BC ####[facility] Ersrwolmvb84260[address] [place], [place] [address]Dr. Airam Tripathi NEUT # 4.8 103/ul Normal 1.4-6.5 [facility] Comment on above: Performed By: #### C BC ####[facility] Kvklzyhutp293[address] [place], [place] [address]Dr. Airam Tripathi Neutrophils/100 WBC (Bld) 64.1 % Normal 43.0-75.0 [facility] Comment on above: Performed By: #### C BC ####[facility] Vfnditxrjn407207 [address] [place], [place] [address]Dr. Airam Tripathi Platelet mean volume (Bld) [Entitic vol] 10.0 fL Normal 9.5-13.5 [facility] Comment on above: Performed By: #### C BC ####[facility] Xngrkedagr4822 [place] [address]Dr. Airam Tripathi PLT 322 103/ul Normal 150-450 [facility] Comment on above: Performed By: #### C BC ####[facility] Msipwdfcpt5653 [place] [address]Dr. Airam Tripathi RBC 3.34 106/ul Critically low 4.20-5.40 [facility] Comment on above: Performed By: #### C BC ####[facility] Luqzdtngcb4956 [place] [address]Dr. Airam Tripathi WBC 7.5 103/ul Normal 4.0-11.0 [facility] Comment on above: Performed By: #### C BC ####[facility] Qxqkmbsipg2[address] [place], [place] [address]DrKianna Tripathi PROF 14(COMP METB)on 022 Albumin [Mass/Vol] 3.5 g/dL Normal 3.4-5.0 [facility] Comment on above: Performed By: #### C MP ####[facility] Futsrhdqmx3499[address] [place], [place] [address]DrKianna Tripathi Albumin/Globulin [Mass ratio] 1.1 {ratio} Normal [facility] Comment on above: Performed By: #### C MP ####[facility] Yymsmohfbi259[address] [place], [place] [address]Dr. Airam Tripathi ALP [Catalytic activity/Vol] 167 U/L Critically high 46-116 [facility] Comment on above: Performed By: #### C MP ####[facility] Fvlnpxuoct235[address] [place], [place] [address]Dr. Airam Tripathi ALT [Catalytic activity/Vol] 24 U/L Normal 14-59 [facility] Comment on above: Performed By: #### C MP ####[facility] Dkainoerdp5924[address] [place], [place] [address]Dr. Airam Tripathi Anion gap [Moles/Vol] 14.1 mmol/L Normal [facility] Comment on above: Performed By: #### C MP ####[facility] Ifbgrmjkhr1068 [place] [address]Dr. Airam Tripathi AST [Catalytic activity/Vol] 27 U/L Normal 15-37 [facility] Comment on above: Performed By: #### C MP ####[facility] Qiuolakhgu3971 [place] [address]Dr. Airam Tripathi Bilirubin [Mass/Vol] 0.3 mg/dL Normal 0.2-1.0 [facility] Comment on above: Performed By: #### C MP ####[facility] Frztwfjyvc286[address] [place], [place] [address]Dr. Airam Tripathi Calcium [Mass/Vol] 8.0 mg/dL Critically low 8.5-10.1 [facility] Comment on above: Performed By: #### C MP ####[facility] Aijhglthyq285[address] [place], [place] [address]Dr. Airam Tripathi Chloride [Moles/Vol] 96 mmol/L Critically low 98-107 [facility] Comment on above: Performed By: #### C MP ####[facility] Vjeytvxzvx464[address] [place], [place] [address]Dr. Airam Tripathi CO2 [Moles/Vol] 24.6 mmol/L Normal 21.0-32.0 [facility] Comment on above: Performed By: #### C MP ####[facility] Tfbyxenmgw229[address] [place], [place] [address]Dr. Airam Deuce Creatinine [Mass/Vol] 1.79 mg/dL Critically high 0.55-1.02 [facility] Comment on above: Performed By: #### C MP ####[facility] Odtwusylev439[address] [place], [place] [address]Dr. Airam Tripathi EGFR-AF ROMANIAN 35 mL/min/1.73m2 Critically low >=60 [facility] Comment on above: Performed By: #### C MP ####[facility] Lonsuezwjf87[address] [place], [place] [address]Dr. Airam Tripathi EGFR-NON AF ROMANIAN 29 mL/min/1.73m2 Critically low >=60 [facility] Comment on above: Performed By: #### C MP ####[facility] Jgeqdsqnvk2641 [place] [address]Dr. Airam Tripathi Globulin (S) [Mass/Vol] 3.3 g/dL Normal [facility] Comment on above: Performed By: #### C MP ####[facility] Sdqjdxevls4771 [place] [address]Dr. Airam Deuce Glucose [Mass/Vol] 58 mg/dL Critically low 74-106 [facility] Comment on above: Performed By: #### C MP ####[facility] Anqkbtxakv718[address] [place], [place] [address]Dr. Selenaneil Deuce Potassium [Moles/Vol] 4.7 mmol/L Normal 3.5-5.1 [facility] Comment on above: Performed By: #### C MP ####[facility] Bazzhdxusa40220[address] [place], [place] [address]Dr. Airam Deuce Protein [Mass/Vol] 6.8 g/dL Normal 6.4-8.2 [facility] Comment on above: Performed By: #### C MP ####[facility] Oorkuhbqtk45[address] [place], [place] [address]Dr. Airam Deuce Sodium [Moles/Vol] 130 mmol/L Critically low 136-145 [facility] Comment on above: Performed By: #### C MP ####[facility] Cbfiexsvkr6325[address] [place], [place] [address]Dr. Aiarm Deuce Urea nitrogen [Mass/Vol] 30.0 mg/dL Critically high 7.0-18.0 [facility] Comment on above: Performed By: #### C MP ####[facility] Lgxpdfbudu345[address] [place], [place] [address]Dr. Selenaneil Deuce Urea nitrogen/Creatinine [Mass ratio] 16.8 mg/mg Normal [facility] Comment on above: Performed By: #### C MP ####[facility] Buvotidgcu[address] [place], [place] [address]Dr. Selenaneil Deuce OSMOLALITYon 05-28-2022 Osmolality [Osmolality] 275 mosm/kg Normal 275-295 [facility] Comment on above: Performed By: #### O SMO ####[facility] [address]zs[address] [place] [address]Dr. Airam Deuce CBC AUTO DIFFon 05-26-2022 BASO # 0.0 103/ul Normal 0.0-0.1 [facility] Comment on above: Performed By: #### C BC ####[facility] Vxsfjqcvyl299407 [address] [place], [place] [address]Dr. Airam Tripathi Basophils/100 WBC (Bld) 0.4 % Normal 0.2-2.0 [facility] Comment on above: Performed By: #### C BC ####[facility] Qsqtpkjebh466007 [address] [place], [place] [address]Dr. Airam Tripathi EO # 0.3 103/ul Normal 0.0-0.7 [facility] Comment on above: Performed By: #### C BC ####[facility] Lekntnakkr089[address] [place], [place] [address]Dr. Airam Tripathi Eosinophils/100 WBC (Bld) 3.2 % Normal 0.9-7.0 [facility] Comment on above: Performed By: #### C BC ####[facility] Knavrcjisd316407 [address] [place], [place] [address]Dr. Airam Tripathi Erythrocyte distribution width (RBC) [Ratio] 13.0 % Normal 11.0-15.0 [facility] Comment on above: Performed By: #### C BC ####[facility] Xcqbrcbcsi047[address] [place], [place] [address]Dr. Airam Tripathi Hematocrit (Bld) [Volume fraction] 30.4 % Critically low 36.0-48.0 [facility] Comment on above: Performed By: #### C BC ####[facility] Motclsvvtk126507 [address] [place], [place] [address]Dr. Airam Tripathi Hemoglobin (Bld) [Mass/Vol] 9.6 g/dL Critically low 12.0-16.0 [facility] Comment on above: Performed By: #### C BC ####[facility] Ccqfwvbmyy0723 [place] [address]Dr. Airam Deuce IG # 0.06 10e3/ul Critically high 0.00-0.03 [facility] Comment on above: Performed By: #### C BC ####[facility] Ggkkccnsuo1037[address] [place], [place] [address]DrKianna Airam Deuce IG % 0.7 % Critically high 0.0-0.5 [facility] Comment on above: Performed By: #### C BC ####[facility] Anewrfnyml689[address] [place], [place] [address]DrKianna Tripathi LYMPH # 1.9 103/ul Normal 1.2-3.8 [facility] Comment on above: Performed By: #### C BC ####[facility] Wathwtkrpt518[address] [place], [place] [address]DrKianna Tripathi Lymphocytes/100 WBC (Bld) 20.6 % Normal 20.5-60.0 [facility] Comment on above: Performed By: #### C BC ####[facility] Qntjkjpyoq742807 [address] [place], [place] [address]DrKianna Selenaneil Tripathi MANUAL DIFF REQ NO Normal [facility] Comment on above: Performed By: #### C BC ####[facility] Aptwcptfpj789[address] [place], [place] [address]DrKianna Airam Deuce MCH (RBC) [Entitic mass] 30.1 pg Normal 26.7-34.0 [facility] Comment on above: Performed By: #### C BC ####[facility] Kdjkfytubv174207 [address] [place], [place] [address]DrKianna Airam Deuce MCHC (RBC) [Mass/Vol] 31.6 g/dL Normal 29.9-35.2 [facility] Comment on above: Performed By: #### C BC ####[facility] Bwmvctbdqp575[address] [place], [place] [address]DrKianna Selenaneil Tripathi MCV (RBC) [Entitic vol] 95.3 fL Normal 81.0-99.0 [facility] Comment on above: Performed By: #### C BC ####[facility] Gsflhybgxg098307 [address] [place], [place] [address]DrKianna Tripathi MONO # 0.6 103/ul Normal 0.3-0.8 [facility] Comment on above: Performed By: #### C BC ####[facility] Eyxlgiwrof27[address] [place] [address]Dr. Airam Tripathi Monocytes/100 WBC (Bld) 6.9 % Normal 1.7-12.0 [facility] Comment on above: Performed By: #### C BC ####[facility] Oesaspqyzu4960 [place] [address]Dr. Airam Tripathi NEUT # 6.1 103/ul Normal 1.4-6.5 [facility] Comment on above: Performed By: #### C BC ####[facility] Xnljqrcqnj7641 [place] [address]Dr. Airam Tripathi Neutrophils/100 WBC (Bld) 68.2 % Normal 43.0-75.0 [facility] Comment on above: Performed By: #### C BC ####[facility] Vneoljvnux9971 [place] [address]Dr. Airam Tripathi Platelet mean volume (Bld) [Entitic vol] 9.7 fL Normal 9.5-13.5 [facility] Comment on above: Performed By: #### C BC ####[facility] Xujsqinuup1190 [place] [address]Dr. Airam Tripathi PLT 317 103/ul Normal 150-450 [facility] Comment on above: Performed By: #### C BC ####[facility] Zqogbtbwiu3465 [place] [address]Dr. Airam Tripathi RBC 3.19 106/ul Critically low 4.20-5.40 [facility] Comment on above: Performed By: #### C BC ####[facility] Hbzgshnmps6272 [place] [address]Dr. Airam Tripathi WBC 9.0 103/ul Normal 4.0-11.0 [facility] Comment on above: Performed By: #### C BC ####[facility] Gxmvuyktam438[address] [place], [place] [address]DrKianna Tripathi PROF 14(COMP METB)on 022 Albumin [Mass/Vol] 3.4 g/dL Normal 3.4-5.0 [facility] Comment on above: Performed By: #### C MP ####[facility] Jwmpvogkab7071 [place] [address]Dr. Airam Tripathi Albumin/Globulin [Mass ratio] 1.0 {ratio} Normal [facility] Comment on above: Performed By: #### C MP ####[facility] Iniabnrytw844907 [address] [place], [place] [address]Dr. Airam Tripathi ALP [Catalytic activity/Vol] 153 U/L Critically high 46-116 [facility] Comment on above: Performed By: #### C MP ####[facility] Sgtfmjryre154007 [address] [place], [place] [address]Dr. Airam Tripathi ALT [Catalytic activity/Vol] 21 U/L Normal 14-59 [facility] Comment on above: Performed By: #### C MP ####[facility] Saaufnyqpg6627[address] [place], [place] [address]Dr. Airam Tripathi Anion gap [Moles/Vol] 13.6 mmol/L Normal [facility] Comment on above: Performed By: #### C MP ####[facility] Hvbiddsbnr318507 [address] [place], [place] [address]Dr. Airam Tripathi AST [Catalytic activity/Vol] 23 U/L Normal 15-37 [facility] Comment on above: Performed By: #### C MP ####[facility] Cdgndlrkpw155407 [address] [place], [place] [address]Dr. Airam Tripathi Bilirubin [Mass/Vol] 0.2 mg/dL Normal 0.2-1.0 [facility] Comment on above: Performed By: #### C MP ####[facility] Rqayskkull309207 [address] [place], [place] [address]Dr. Airam Tripathi Calcium [Mass/Vol] 8.4 mg/dL Critically low 8.5-10.1 [facility] Comment on above: Performed By: #### C MP ####[facility] Zwbnnwjsgm181507 [address] [place], [place] [address]Dr. Airam Tripathi Chloride [Moles/Vol] 97 mmol/L Critically low 98-107 [facility] Comment on above: Performed By: #### C MP ####[facility] Krnetunzew6625 [place] [address]Dr. Airam Deuce CO2 [Moles/Vol] 25.2 mmol/L Normal 21.0-32.0 [facility] Comment on above: Performed By: #### C MP ####[facility] Sfijxnhnev320907 [address] [place], [place] [address]Dr. Airam Deuce Creatinine [Mass/Vol] 1.58 mg/dL Critically high 0.55-1.02 [facility] Comment on above: Performed By: #### C MP ####[facility] Zakgaslpkw952207 [address] [place], [place] [address]Dr. Selenaneil Deuce EGFR-AF ROMANIAN 40 mL/min/1.73m2 Critically low >=60 [facility] Comment on above: Performed By: #### C MP ####[facility] Qdqwhwopfc311007 [address] [place], [place] [address]Dr. Airam Deuce EGFR-NON AF ROMANIAN 33 mL/min/1.73m2 Critically low >=60 [facility] Comment on above: Performed By: #### C MP ####[facility] Tteclylfxt450307 [address] [place], [place] [address]Dr. Selenaneil Tripathi Globulin (S) [Mass/Vol] 3.4 g/dL Normal [facility] Comment on above: Performed By: #### C MP ####[facility] Kgymngkzre387807 [address] [place], [place] [address]Dr. Airam Tripathi Glucose [Mass/Vol] 74 mg/dL Normal 74-106 [facility] Comment on above: Performed By: #### C MP ####[facility] Zxvklvmmai420407 [address] [place], [place] [address]Dr. Airam Tripathi Potassium [Moles/Vol] 4.8 mmol/L Normal 3.5-5.1 [facility] Comment on above: Performed By: #### C MP ####[facility] Zcyfecboht583407 [address] [place], [place] [address]Dr. Airam Tripathi Protein [Mass/Vol] 6.8 g/dL Normal 6.4-8.2 [facility] Comment on above: Performed By: #### C MP ####[facility] Jpgmijqynk655007 [address] [place], [place] [address]DrKianna Tripathi Sodium [Moles/Vol] 131 mmol/L Critically low 136-145 [facility] Comment on above: Performed By: #### C MP ####[facility] Advcaqwual703407 [address] [place], [place] [address]DrKianna Tripathi Urea nitrogen [Mass/Vol] 31.0 mg/dL Critically high 7.0-18.0 [facility] Comment on above: Performed By: #### C MP ####[facility] Wixeluznfp903307 [address] [place], [place] [address]Dr. Airam Tripathi Urea nitrogen/Creatinine [Mass ratio] 19.6 mg/mg Normal [facility] Comment on above: Performed By: #### C MP ####[facility] Avyiiarwyu598007 [address] [place], [place] [address]DrKianna Tripathi OSMOLALITYon 05-19-2022 Osmolality [Osmolality] 281 mosm/kg Normal 275-295 [facility] Comment on above: Performed By: #### O SMO ####[facility] Qmcidikiik599307 [address] [place], [place] [address]Dr. Airam Tripathi CBC AUTO DIFFon 05-17-2022 BASO # 0.1 103/ul Normal 0.0-0.1 [facility] Comment on above: Performed By: #### C BC ####[facility] Oaeqgwofvp023607 [address] [place], [place] [address]Dr. Airam Tripathi Basophils/100 WBC (Bld) 0.6 % Normal 0.2-2.0 [facility] Comment on above: Performed By: #### C BC ####[facility] Idikmmuzfx724207 [address] [place], [place] [address]DrKianna Tripathi EO # 0.2 103/ul Normal 0.0-0.7 [facility] Comment on above: Performed By: #### C BC ####[facility] Xpveyvdhsj417207 [address] [place], [place] [address]Dr. Airam Tripathi Eosinophils/100 WBC (Bld) 1.9 % Normal 0.9-7.0 [facility] Comment on above: Performed By: #### C BC ####[facility] Riowrzoglc1886 [place] [address]Dr. Airam Tripathi Erythrocyte distribution width (RBC) [Ratio] 12.9 % Normal 11.0-15.0 [facility] Comment on above: Performed By: #### C BC ####[facility] Dutttmesvf825207 [address] [place], [place] [address]Dr. Airam Tripathi Hematocrit (Bld) [Volume fraction] 32.1 % Critically low 36.0-48.0 [facility] Comment on above: Performed By: #### C BC ####[facility] Ndvxyuoirv760607 [address] [place], [place] [address]Dr. Airam Tripathi Hemoglobin (Bld) [Mass/Vol] 9.9 g/dL Critically low 12.0-16.0 [facility] Comment on above: Performed By: #### C BC ####[facility] Hhzloktaxh534107 [address] [place], [place] [address]Dr. Airam Tripathi IG # 0.05 10e3/ul Critically high 0.00-0.03 [facility] Comment on above: Performed By: #### C BC ####[facility] Lxcdamldhu689307 [address] [place], [place] [address]Dr. Airam Tripathi IG % 0.6 % Critically high 0.0-0.5 [facility] Comment on above: Performed By: #### C BC ####[facility] Ryzmwlvmcq231807 [address] [place], [place] [address]Dr. Airam Tripathi LYMPH # 1.3 103/ul Normal 1.2-3.8 [facility] Comment on above: Performed By: #### C BC ####[facility] Izopthmkyb728807 [address] [place], [place] [address]Dr. Airam Tripathi Lymphocytes/100 WBC (Bld) 15.2 % Critically low 20.5-60.0 [facility] Comment on above: Performed By: #### C BC ####[facility] Cznscmhmty6847 [place] [address]Dr. Airam Deuce MANUAL DIFF REQ NO Normal [facility] Comment on above: Performed By: #### C BC ####[facility] Ivhoxnqhvi1418 [place] [address]Dr. Airam Tripathi MCH (RBC) [Entitic mass] 30.0 pg Normal 26.7-34.0 [facility] Comment on above: Performed By: #### C BC ####[facility] Ifzyapccht674007 [address] [place], [place] [address]Dr. Airam Deuce MCHC (RBC) [Mass/Vol] 30.8 g/dL Normal 29.9-35.2 [facility] Comment on above: Performed By: #### C BC ####[facility] Mdcbgiwkkb836507 [address] [place], [place] [address]Dr. Selenaneil Tripathi MCV (RBC) [Entitic vol] 97.3 fL Normal 81.0-99.0 [facility] Comment on above: Performed By: #### C BC ####[facility] Ozqksvjalx992507 [address] [place], [place] [address]Dr. Airam Deuce MONO # 0.5 103/ul Normal 0.3-0.8 [facility] Comment on above: Performed By: #### C BC ####[facility] Jxjhwjzrqr017307 [address] [place], [place] [address]Dr. Airam Tripathi Monocytes/100 WBC (Bld) 5.4 % Normal 1.7-12.0 [facility] Comment on above: Performed By: #### C BC ####[facility] Lwjkoadnva581107 [address] [place], [place] [address]Dr. Selenaneil Deuce NEUT # 6.5 103/ul Normal 1.4-6.5 [facility] Comment on above: Performed By: #### C BC ####[facility] Qkelnfwwow080807 [address] [place], [place] [address]Dr. Airam Tripathi Neutrophils/100 WBC (Bld) 76.3 % Critically high 43.0-75.0 [facility] Comment on above: Performed By: #### C BC ####[facility] Cazhfoxrjl498[address] [place], [place] [address]Dr. Airam Tripathi Platelet mean volume (Bld) [Entitic vol] 10.1 fL Normal 9.5-13.5 [facility] Comment on above: Performed By: #### C BC ####[facility] Qhpiiydwlm9808 [place] [address]Dr. Airam Tripathi PLT 284 103/ul Normal 150-450 [facility] Comment on above: Performed By: #### C BC ####[facility] Gkjahyziio1098 [place] [address]Dr. Airam Tripathi RBC 3.30 106/ul Critically low 4.20-5.40 [facility] Comment on above: Performed By: #### C BC ####[facility] Avcfipisqc088707 [address] [place], [place] [address]Dr. Airam Tripathi WBC 8.5 103/ul Normal 4.0-11.0 [facility] Comment on above: Performed By: #### C BC ####[facility] Npvzasmilu2133 [place] [address]Dr. Airam Tripathi PROF 14(COMP METB)on 022 Albumin [Mass/Vol] 3.1 g/dL Critically low 3.4-5.0 [facility] Comment on above: Performed By: #### C MP ####[facility] Wgyxbwqnfs193507 [address] [place], [place] [address]Dr. Airam Tripathi Albumin/Globulin [Mass ratio] 0.9 {ratio} Normal [facility] Comment on above: Performed By: #### C MP ####[facility] Czjefgobdr1135 [place] [address]Dr. Airam Tripathi ALP [Catalytic activity/Vol] 162 U/L Critically high 46-116 [facility] Comment on above: Performed By: #### C MP ####[facility] Lebfocebyf285907 [address] [place], [place] [address]Dr. Airam Tripathi ALT [Catalytic activity/Vol] 22 U/L Normal 14-59 [facility] Comment on above: Performed By: #### C MP ####[facility] Tfcmyxyiuw156407 [address] [place], [place] [address]Dr. Airam Deuce Anion gap [Moles/Vol] 9.4 mmol/L Normal [facility] Comment on above: Performed By: #### C MP ####[facility] Aiskomixcp467607 [address] [place], [place] [address]Dr. Airam Tripathi AST [Catalytic activity/Vol] 26 U/L Normal 15-37 [facility] Comment on above: Performed By: #### C MP ####[facility] Wbsmljhsdg271107 [address] [place], [place] [address]Dr. Airam Deuce Bilirubin [Mass/Vol] 0.2 mg/dL Normal 0.2-1.0 [facility] Comment on above: Performed By: #### C MP ####[facility] Bilabxbkgt232007 [address] [place], [place] [address]Dr. Airam Tripathi Calcium [Mass/Vol] 8.2 mg/dL Critically low 8.5-10.1 [facility] Comment on above: Performed By: #### C MP ####[facility] Ojmxgbzxrr534607 [address] [place], [place] [address]Dr. Airam Tripathi Chloride [Moles/Vol] 103 mmol/L Normal 98-107 [facility] Comment on above: Performed By: #### C MP ####[facility] Tjnqmocfwq519507 [address] [place], [place] [address]Dr. Airam Tripathi CO2 [Moles/Vol] 24.8 mmol/L Normal 21.0-32.0 [facility] Comment on above: Performed By: #### C MP ####[facility] Ejzrmxurkn851407 [address] [place], [place] [address]Dr. Airam Tripathi Creatinine [Mass/Vol] 1.19 mg/dL Critically high 0.55-1.02 [facility] Comment on above: Performed By: #### C MP ####[facility] Trpgduagbh052507 [address] [place], [place] [address]Dr. Selenaneil Deuce EGFR-AF ROMANIAN 56 mL/min/1.73m2 Critically low >=60 [facility] Comment on above: Performed By: #### C MP ####[facility] Pntjaneaoa233007 [address] [place], [place] [address]Dr. Airam Tripathi EGFR-NON AF ROMANIAN 46 mL/min/1.73m2 Critically low >=60 [facility] Comment on above: Performed By: #### C MP ####[facility] Pnhxlnismq0561 [place] [address]Dr. Airam Tripathi Globulin (S) [Mass/Vol] 3.6 g/dL Normal [facility] Comment on above: Performed By: #### C MP ####[facility] Rviyxzywdw752407 [address] [place], [place] [address]Dr. Airam Tripathi Glucose [Mass/Vol] 75 mg/dL Normal 74-106 [facility] Comment on above: Performed By: #### C MP ####[facility] Uuxasifxvo455907 [address] [place], [place] [address]Dr. Airam Tripathi Potassium [Moles/Vol] 5.2 mmol/L Critically high 3.5-5.1 [facility] Comment on above: Performed By: #### C MP ####[facility] Xqzoapdqcf894607 [address] [place], [place] [address]Dr. Airam Tripathi Protein [Mass/Vol] 6.7 g/dL Normal 6.4-8.2 [facility] Comment on above: Performed By: #### C MP ####[facility] Smkbjqvnxv089807 [address] [place], [place] [address]Dr. Airam Tripathi Sodium [Moles/Vol] 132 mmol/L Critically low 136-145 [facility] Comment on above: Performed By: #### C MP ####[facility] Zuayarshzg026607 [address] [place], [place] [address]Dr. Airam Tripathi Urea nitrogen [Mass/Vol] 28.0 mg/dL Critically high 7.0-18.0 [facility] Comment on above: Performed By: #### C MP ####[facility] Hsumrzlvkh927307 [address] [place], [place] [address]Dr. Airam Tripathi Urea nitrogen/Creatinine [Mass ratio] 23.5 mg/mg Normal [facility] Comment on above: Performed By: #### C MP ####[facility] Ucahaghzna162707 [address] [place], [place] [address]Dr. Airam Tripathi OSMOLALITYon 05-16-2022 Osmolality [Osmolality] 281 mosm/kg Normal 275-295 [facility] Comment on above: Performed By: #### O SMO ####[facility] Gtkkstazlg6124 [place] [address]Dr. Airam Tripathi CBC AUTO DIFFon 05-13-2022 BASO # 0.1 103/ul Normal 0.0-0.1 [facility] Comment on above: Performed By: #### C BC ####[facility] Gfdqjtzhdx403107 [address] [place], [place] [address]Dr. Airam Tripathi Basophils/100 WBC (Bld) 0.5 % Normal 0.2-2.0 [facility] Comment on above: Performed By: #### C BC ####[facility] Cbjnieigmo994[address] [place], [place] [address]Dr. Airam Tripathi EO # 0.2 103/ul Normal 0.0-0.7 [facility] Comment on above: Performed By: #### C BC ####[facility] Jfqfhxoclf511[address] [place], [place] [address]Dr. Airam Tripathi Eosinophils/100 WBC (Bld) 2.1 % Normal 0.9-7.0 [facility] Comment on above: Performed By: #### C BC ####[facility] Uiopuydwiw750[address] [place], [place] [address]Dr. Airam Tripathi Erythrocyte distribution width (RBC) [Ratio] 12.9 % Normal 11.0-15.0 [facility] Comment on above: Performed By: #### C BC ####[facility] Ckbxtcafmj724[address] [place], [place] [address]Dr. Airam Tripathi Hematocrit (Bld) [Volume fraction] 31.9 % Critically low 36.0-48.0 [facility] Comment on above: Performed By: #### C BC ####[facility] Uwqhgltqyg973[address] [place], [place] [address]Dr. Airam Tripatih Hemoglobin (Bld) [Mass/Vol] 9.7 g/dL Critically low 12.0-16.0 [facility] Comment on above: Performed By: #### C BC ####[facility] Qxiqsfesak0352 [place] [id number]. Airam Tripathi IG # 0.06 10e3/ul Critically high 0.00-0.03 [facility] Comment on above: Performed By: #### C BC ####[facility] Atcsjcdkun5358 [place] [id number]. Airam Tripathi IG % 0.7 % Critically high 0.0-0.5 [facility] Comment on above: Performed By: #### C BC ####[facility] Qusrjwnudc3575 [place] [address]Dr. Airam Tripathi LYMPH # 1.9 103/ul Normal 1.2-3.8 [facility] Comment on above: Performed By: #### C BC ####[facility] Gnvdnwcyhk4481 [place] [address]Dr. Selenaneil Tripathi Lymphocytes/100 WBC (Bld) 21.1 % Normal 20.5-60.0 [facility] Comment on above: Performed By: #### C BC ####[facility] Subewchjya0764 [place] [address]Dr. Airam Tripathi MANUAL DIFF REQ NO Normal [facility] Comment on above: Performed By: #### C BC ####[facility] Pdwklyuvta9623 [place] [address]Dr. Airam Tripathi MCH (RBC) [Entitic mass] 29.7 pg Normal 26.7-34.0 [facility] Comment on above: Performed By: #### C BC ####[facility] Ygzpicoleo0779 [place] [address]Dr. Airam Tripathi MCHC (RBC) [Mass/Vol] 30.4 g/dL Normal 29.9-35.2 [facility] Comment on above: Performed By: #### C BC ####[facility] Icwnjihcnx6418 [place] [address]Dr. Airam Tripathi MCV (RBC) [Entitic vol] 97.6 fL Normal 81.0-99.0 [facility] Comment on above: Performed By: #### C BC ####[facility] Ryyyajklvz8696 [place] [id number]. Airam Tripathi MONO # 0.6 103/ul Normal 0.3-0.8 [facility] Comment on above: Performed By: #### C BC ####[facility] Zgoyzsxpdn3071 [place] [phone]. Airam Tripathi Monocytes/100 WBC (Bld) 6.8 % Normal 1.7-12.0 [facility] Comment on above: Performed By: #### C BC ####[facility] Jzzqqknzhn0859 [place] [phone]. Airam Tripathi NEUT # 6.3 103/ul Normal 1.4-6.5 [facility] Comment on above: Performed By: #### C BC ####[facility] Qwdyemyycz8937 [place] [phone]. Airam Tripathi Neutrophils/100 WBC (Bld) 68.8 % Normal 43.0-75.0 [facility] Comment on above: Performed By: #### C BC ####[facility] Xbypnbhinh7929 [place] [phone]. Airam Tripathi Platelet mean volume (Bld) [Entitic vol] 9.6 fL Normal 9.5-13.5 [facility] Comment on above: Performed By: #### C BC ####[facility] Yalrdrgags2114 [place] [phone]. Airam Tripathi PLT 295 103/ul Normal 150-450 [facility] Comment on above: Performed By: #### C BC ####[facility] Etchgsudma7163 [place] [phone]. Airam Tripathi RBC 3.27 106/ul Critically low 4.20-5.40 [facility] Comment on above: Performed By: #### C BC ####[facility] Rneasmdozt7826 [place] [phone]. Airam Tripathi WBC 9.1 103/ul Normal 4.0-11.0 [facility] Comment on above: Performed By: #### C BC ####[facility] Dedzhmvzne8646 [place] [phone]. Airam Tripathi PROF 14(COMP METB)on 05-13- 022 Albumin [Mass/Vol] 3.3 g/dL Critically low 3.4-5.0 [facility] Comment on above: Performed By: #### C MP ####[facility] Tlasathsow[address] [place] [address]Dr. Airam Tripathi Albumin/Globulin [Mass ratio] 1.0 {ratio} Normal [facility] Comment on above: Performed By: #### C MP ####[facility] [address]qeymcpdoi[address] [place] [address]Dr. Airam Tripathi ALP [Catalytic activity/Vol] 152 U/L Critically high 46-116 [facility] Comment on above: Performed By: #### C MP ####[facility] Gnxlrjkmii85[address] [place], [place] [address]Dr. Airam Tripathi ALT [Catalytic activity/Vol] 23 U/L Normal 14-59 [facility] Comment on above: Performed By: #### C MP ####[facility] Neyfnkwyib008[address] [place], [place] [address]Dr. Airam Tripathi Anion gap [Moles/Vol] 12.0 mmol/L Normal [facility] Comment on above: Performed By: #### C MP ####[facility] Zdcidfxycn2925[address] [place], [place] [address]Dr. Airam Tripathi AST [Catalytic activity/Vol] 25 U/L Normal 15-37 [facility] Comment on above: Performed By: #### C MP ####[facility] Jjptxcsanu936[address] [place], [place] [address]Dr. Airam Tripathi Bilirubin [Mass/Vol] 0.2 mg/dL Normal 0.2-1.0 [facility] Comment on above: Performed By: #### C MP ####[facility] Qkusdjibnr714[address] [place], [place] [address]Dr. Airam Tripathi Calcium [Mass/Vol] 8.2 mg/dL Critically low 8.5-10.1 [facility] Comment on above: Performed By: #### C MP ####[facility] Vwcnoqavqx6[address] [place] [address]Dr. Airam Tripathi Chloride [Moles/Vol] 100 mmol/L Normal 98-107 [facility] Comment on above: Performed By: #### C MP ####[facility] Zhqlxedfww6024 [place] [address]Dr. Airam Tripathi CO2 [Moles/Vol] 24.8 mmol/L Normal 21.0-32.0 [facility] Comment on above: Performed By: #### C MP ####[facility] Sspmrptift3301[address] [place], [place] [address]Dr. Airam Tripathi Creatinine [Mass/Vol] 1.46 mg/dL Critically high 0.55-1.02 [facility] Comment on above: Performed By: #### C MP ####[facility] Dgryeokxzd76260[address] [place], [place] [address]Dr. Airam Tripathi EGFR-AF ROMANIAN 44 mL/min/1.73m2 Critically low >=60 [facility] Comment on above: Performed By: #### C MP ####[facility] Myyrhzrsmw4725[address] [place], [place] [address]Dr. Airam Tripathi EGFR-NON AF ROMANIAN 37 mL/min/1.73m2 Critically low >=60 [facility] Comment on above: Performed By: #### C MP ####[facility] Xamdmlttfw885[address] [place], [place] [address]Dr. Airam Tripathi Globulin (S) [Mass/Vol] 3.3 g/dL Normal [facility] Comment on above: Performed By: #### C MP ####[facility] Rmzovyrgkb556[address] [place], [place] [address]Dr. Airam Tripathi Glucose [Mass/Vol] 86 mg/dL Normal 74-106 [facility] Comment on above: Performed By: #### C MP ####[facility] Mtzwqmgfof958307 [address] [place], [place] [address]Dr. Airam Tripathi Potassium [Moles/Vol] 4.8 mmol/L Normal 3.5-5.1 [facility] Comment on above: Performed By: #### C MP ####[facility] Swbkhqsurr643[address] [place], [place] [id number]. Airam Deuce Protein [Mass/Vol] 6.6 g/dL Normal 6.4-8.2 [facility] Comment on above: Performed By: #### C MP ####[facility] Xfgqzschdk2697 [place] [address]Dr. Airam Deuce Sodium [Moles/Vol] 132 mmol/L Critically low 136-145 [facility] Comment on above: Performed By: #### C MP ####[facility] Rzuhnvfuff0417[address] [place], [place] [address]Dr. Selenaneil Tripathi Urea nitrogen [Mass/Vol] 34.0 mg/dL Critically high 7.0-18.0 [facility] Comment on above: Performed By: #### C MP ####[facility] Vjebvntbbj789[address] [place], [place] [address]Dr. Airam Tripathi Urea nitrogen/Creatinine [Mass ratio] 23.3 mg/mg Normal [facility] Comment on above: Performed By: #### C MP ####[facility] Hffveozmkr168[address] [place], [place] [address]Dr. Airam Deuce OSMOLALITYon 05-06-2022 Osmolality [Osmolality] 284 mosm/kg Normal 275-295 [facility] Comment on above: Performed By: #### O SMO ####[facility] Ncnqgiucte774[address] [place], [place] [address]Dr. Airam Deuce XR LSPINE MIN 4 VIEWSon XR LSPINE MIN 4 VIEWS Normal [facility] CBC AUTO DIFFon 05-03-2022 BASO # 0.1 103/ul Normal 0.0-0.1 [facility] Comment on above: Performed By: #### C BC ####[facility] Qulnyowfef719[address] [place], [place] [address]Dr. Airam Tripathi Basophils/100 WBC (Bld) 0.6 % Normal 0.2-2.0 [facility] Comment on above: Performed By: #### C BC ####[facility] Ozrhacznpu727907 [address] [place], [place] [address]Dr. Airam Tripathi EO # 0.3 103/ul Normal 0.0-0.7 [facility] Comment on above: Performed By: #### C BC ####[facility] Tbcipspwgv6763 [place] [address]Dr. Airam Tripathi Eosinophils/100 WBC (Bld) 4.2 % Normal 0.9-7.0 [facility] Comment on above: Performed By: #### C BC ####[facility] Jnnxlynlqx776[address] [place], [place] [address]Dr. Airam Tripathi Erythrocyte distribution width (RBC) [Ratio] 13.4 % Normal 11.0-15.0 [facility] Comment on above: Performed By: #### C BC ####[facility] Ncnmuwfnqs775[address] [place], [place] [address]Dr. Airam Tripathi Hematocrit (Bld) [Volume fraction] 30.7 % Critically low 36.0-48.0 [facility] Comment on above: Performed By: #### C BC ####[facility] Esephwyobb885307 [address] [place], [place] [address]Dr. Airam Tripathi Hemoglobin (Bld) [Mass/Vol] 9.6 g/dL Critically low 12.0-16.0 [facility] Comment on above: Performed By: #### C BC ####[facility] Dsqbuphmsk267[address] [place], [place] [address]Dr. Airam Tripathi IG # 0.05 10e3/ul Critically high 0.00-0.03 [facility] Comment on above: Performed By: #### C BC ####[facility] Kgvnxempit582307 [address] [place], [place] [address]Dr. Airam Tripathi IG % 0.6 % Critically high 0.0-0.5 [facility] Comment on above: Performed By: #### C BC ####[facility] Swtiuszjyh744[address] [place], [place] [address]DrKianna Airam Tripathi LYMPH # 1.9 103/ul Normal 1.2-3.8 [facility] Comment on above: Performed By: #### C BC ####[facility] Exdhgehbqs924207 [address] [place], [place] [address]Dr. Airam Tripathi Lymphocytes/100 WBC (Bld) 23.5 % Normal 20.5-60.0 [facility] Comment on above: Performed By: #### C BC ####[facility] Jitnqsxpoj57[address] [place] [address]Dr. Airam Trpiathi MANUAL DIFF REQ NO Normal [facility] Comment on above: Performed By: #### C BC ####[facility] Yqfhxnkmjm3760 [place] [address]Dr. Airam Tripathi MCH (RBC) [Entitic mass] 30.8 pg Normal 26.7-34.0 [facility] Comment on above: Performed By: #### C BC ####[facility] Exmgavxnqn4243 [place] [address]Dr. Airam Tripathi MCHC (RBC) [Mass/Vol] 31.3 g/dL Normal 29.9-35.2 [facility] Comment on above: Performed By: #### C BC ####[facility] Dcpexbuijk006[address] [place], [place] [address]Dr. Airam Tripathi MCV (RBC) [Entitic vol] 98.4 fL Normal 81.0-99.0 [facility] Comment on above: Performed By: #### C BC ####[facility] Tyftbzbngd940[address] [place], [place] [address]Dr. Airam Tripathi MONO # 0.6 103/ul Normal 0.3-0.8 [facility] Comment on above: Performed By: #### C BC ####[facility] Muzuwrvxiw976[address] [place], [place] [address]Dr. Airam Tripathi Monocytes/100 WBC (Bld) 7.4 % Normal 1.7-12.0 [facility] Comment on above: Performed By: #### C BC ####[facility] Dgvfibumop3216[address] [place], [place] [address]DrKianna Tripathi NEUT # 5.0 103/ul Normal 1.4-6.5 [facility] Comment on above: Performed By: #### C BC ####[facility] Kdeamzfccb56[address] [place], [place] [address]DrKianna Tripathi Neutrophils/100 WBC (Bld) 63.7 % Normal 43.0-75.0 [facility] Comment on above: Performed By: #### C BC ####[facility] Cwrbxsuquq10[address] [place] [address]Dr. Airam Tripathi Platelet mean volume (Bld) [Entitic vol] 9.5 fL Normal 9.5-13.5 [facility] Comment on above: Performed By: #### C BC ####[facility] Ktdfrvztok55[address] [place] [address]DrKianna Tripathi PLT 280 103/ul Normal 150-450 [facility] Comment on above: Performed By: #### C BC ####[facility] Ttcyfwayog8083 [place] [address]Dr. Airam Tripathi RBC 3.12 106/ul Critically low 4.20-5.40 [facility] Comment on above: Performed By: #### C BC ####[facility] Cjxttvmmjf5218 [place] [address]DrKianna Tripathi WBC 7.9 103/ul Normal 4.0-11.0 [facility] Comment on above: Performed By: #### C BC ####[facility] Vxwrfhnuvm4[address] [place] [address]DrKianna Tripathi PROF 14(COMP METB)on 022 Albumin [Mass/Vol] 3.1 g/dL Critically low 3.4-5.0 [facility] Comment on above: Performed By: #### C MP ####[facility] Htkohhfizn2[address] [place] [address]DrKianna Tripathi Albumin/Globulin [Mass ratio] 0.9 {ratio} Normal [facility] Comment on above: Performed By: #### C MP ####[facility] Dekjosgvjz84[address] [place] [address]DrKianna Tripathi ALP [Catalytic activity/Vol] 140 U/L Critically high 46-116 [facility] Comment on above: Performed By: #### C MP ####[facility] Mvsgkfwxjt1638 [place] [address]DrKianna Tripathi ALT [Catalytic activity/Vol] 24 U/L Normal 14-59 [facility] Comment on above: Performed By: #### C MP ####[facility] Qqplxuunag45[address] [place] [id number]. Airam Tripathi Anion gap [Moles/Vol] 11.2 mmol/L Normal [facility] Comment on above: Performed By: #### C MP ####[facility] Qisggkaroy86[address] [place] [phone]. Airam Tripathi AST [Catalytic activity/Vol] 26 U/L Normal 15-37 [facility] Comment on above: Performed By: #### C MP ####[facility] Jtwtnfobqr[address] [place] [phone]. Airam Deuce Bilirubin [Mass/Vol] 0.2 mg/dL Normal 0.2-1.0 [facility] Comment on above: Performed By: #### C MP ####[facility] Akzwonifoh58[address] [place] [address]Dr. Airam Deuce Calcium [Mass/Vol] 8.3 mg/dL Critically low 8.5-10.1 [facility] Comment on above: Performed By: #### C MP ####[facility] Bwpmmthkft[address] [place] [address]Dr. Airam Deuce Chloride [Moles/Vol] 101 mmol/L Normal 98-107 [facility] Comment on above: Performed By: #### C MP ####[facility] Fnpikzyiig5[address] [place] [phone]. Airam Deuce CO2 [Moles/Vol] 25.5 mmol/L Normal 21.0-32.0 [facility] Comment on above: Performed By: #### C MP ####[facility] Ceettyhfln44[address] [place] [phone]. Airam Deuce Creatinine [Mass/Vol] 1.43 mg/dL Critically high 0.55-1.02 [facility] Comment on above: Performed By: #### C MP ####[facility] Cspxitwlku4612 [place] [phone]. Airam Deuce EGFR-AF ROMANIAN 45 mL/min/1.73m2 Critically low >=60 [facility] Comment on above: Performed By: #### C MP ####[facility] Riqckunqra85[address] [place] [phone]. Airam Tripathi EGFR-NON AF ROMANIAN 37 mL/min/1.73m2 Critically low >=60 [facility] Comment on above: Performed By: #### C MP ####[facility] Ipougruptj2724 [place] [phone]. Airam Tripathi Globulin (S) [Mass/Vol] 3.3 g/dL Normal [facility] Comment on above: Performed By: #### C MP ####[facility] Hlxlzkjdoe7[address] [place] [phone]. Airam Tripathi Glucose [Mass/Vol] 74 mg/dL Normal 74-106 [facility] Comment on above: Performed By: #### C MP ####[facility] Vqjdaujmla6232 [place] [phone]. Airam Deuce Potassium [Moles/Vol] 4.7 mmol/L Normal 3.5-5.1 [facility] Comment on above: Performed By: #### C MP ####[facility] Dgdspwehiy5[address] [place] [phone]. Airam Tripathi Protein [Mass/Vol] 6.4 g/dL Normal 6.4-8.2 [facility] Comment on above: Performed By: #### C MP ####[facility] Zjpliwolge1696 [place] [phone]. Airam Tripathi Sodium [Moles/Vol] 133 mmol/L Critically low 136-145 [facility] Comment on above: Performed By: #### C MP ####[facility] Mvjaqlcynx6798 [place] [phone]. Airam Tripathi Urea nitrogen [Mass/Vol] 38.0 mg/dL Critically high 7.0-18.0 [facility] Comment on above: Performed By: #### C MP ####[facility] Vuatjiiwfp8002 [place] [phone]. Airam Deuce Urea nitrogen/Creatinine [Mass ratio] 26.6 mg/mg Normal [facility] Comment on above: Performed By: #### C MP ####[facility] Ophmdxlsyl2971 [place] [address]Dr. Airam Tripathi OSMOLALITYon 04-29-2022 Osmolality [Osmolality] 292 mosm/kg Normal 275-295 [facility] Comment on above: Performed By: #### O SMO ####[facility] Geouhltyue787[address] [place], [place] [address]Dr. Airam Tripathi CBC AUTO DIFFon 04-28-2022 BASO # 0.0 103/ul Normal 0.0-0.1 [facility] Comment on above: Performed By: #### C BC ####[facility] Afaqibfiou845507 [address] [place], [place] [address]Dr. Airam Tripathi Basophils/100 WBC (Bld) 0.5 % Normal 0.2-2.0 [facility] Comment on above: Performed By: #### C BC ####[facility] Dwusmkmjgt765[address] [place], [place] [address]DrKianna Tripathi EO # 0.2 103/ul Normal 0.0-0.7 [facility] Comment on above: Performed By: #### C BC ####[facility] Lgzkdcolta2419[address] [place], [place] [address]DrKianna Tripathi Eosinophils/100 WBC (Bld) 3.4 % Normal 0.9-7.0 [facility] Comment on above: Performed By: #### C BC ####[facility] Saxykhsejz094[address] [place], [place] [address]DrKianna Tripathi Erythrocyte distribution width (RBC) [Ratio] 13.4 % Normal 11.0-15.0 [facility] Comment on above: Performed By: #### C BC ####[facility] Ukxsbctxms536[address] [place], [place] [address]DrKianna Tripathi Hematocrit (Bld) [Volume fraction] 31.6 % Critically low 36.0-48.0 [facility] Comment on above: Performed By: #### C BC ####[facility] Mxyhqekkha585[address] [place], [place] [address]Dr. Airam Tripathi Hemoglobin (Bld) [Mass/Vol] 9.8 g/dL Critically low 12.0-16.0 [facility] Comment on above: Performed By: #### C BC ####[facility] Zqfxsmrqzo1779 [place] [address]Dr. Selenaneil Tripathi IG # 0.02 10e3/ul Normal 0.00-0.03 [facility] Comment on above: Performed By: #### C BC ####[facility] Lymcptvlkz0227 [place] [address]Dr. Airam Tripathi IG % 0.3 % Normal 0.0-0.5 [facility] Comment on above: Performed By: #### C BC ####[facility] Voyamrbzya525207 [address] [place], [place] [address]DrKianna Tripathi LYMPH # 1.3 103/ul Normal 1.2-3.8 [facility] Comment on above: Performed By: #### C BC ####[facility] Hrayarmomg06[address] [place], [place] [address]Dr. Selenaneil Tripathi Lymphocytes/100 WBC (Bld) 21.7 % Normal 20.5-60.0 [facility] Comment on above: Performed By: #### C BC ####[facility] Xqdpropzyf769907 [address] [place], [place] [address]DrKianna Selenaneil Tripathi MANUAL DIFF REQ NO Normal [facility] Comment on above: Performed By: #### C BC ####[facility] Zulonryxoz102207 [address] [place], [place] [address]Dr. Airam Deuce MCH (RBC) [Entitic mass] 30.7 pg Normal 26.7-34.0 [facility] Comment on above: Performed By: #### C BC ####[facility] Fwceyuwqko980107 [address] [place], [place] [address]DrKianna Tripathi MCHC (RBC) [Mass/Vol] 31.0 g/dL Normal 29.9-35.2 [facility] Comment on above: Performed By: #### C BC ####[facility] Unwyunhprb084607 [address] [place], [place] [address]Dr. Airam Tripathi MCV (RBC) [Entitic vol] 99.1 fL Critically high 81.0-99.0 [facility] Comment on above: Performed By: #### C BC ####[facility] Vpxrrngdbt2094 [place] [address]DrKianna Waltersneil Deuce MONO # 0.3 103/ul Normal 0.3-0.8 [facility] Comment on above: Performed By: #### C BC ####[facility] Yprqoxobrf8763 [place] [address]DrKianna Tripathi Monocytes/100 WBC (Bld) 5.2 % Normal 1.7-12.0 [facility] Comment on above: Performed By: #### C BC ####[facility] Yyyebilgod050[address] [place], [place] [address]DrKianna Tripathi NEUT # 4.1 103/ul Normal 1.4-6.5 [facility] Comment on above: Performed By: #### C BC ####[facility] Luarzxlckr957207 [address] [place], [place] [address]DrKianna Tripathi Neutrophils/100 WBC (Bld) 68.9 % Normal 43.0-75.0 [facility] Comment on above: Performed By: #### C BC ####[facility] Imuzzqopkw99030[address] [place], [place] [address]DrKianna Tripathi Platelet mean volume (Bld) [Entitic vol] 9.8 fL Normal 9.5-13.5 [facility] Comment on above: Performed By: #### C BC ####[facility] Xxfaonmlqu214[address] [place], [place] [address]Dr. Airam Tripathi PLT 329 103/ul Normal 150-450 [facility] Comment on above: Performed By: #### C BC ####[facility] Shzrjucimd685[address] [place], [place] [address]DrKianna Tripathi RBC 3.19 106/ul Critically low 4.20-5.40 [facility] Comment on above: Performed By: #### C BC ####[facility] Ctqzyxkcgb880[address] [place], [place] [address]DrKianna Tripathi WBC 5.9 103/ul Normal 4.0-11.0 [facility] Comment on above: Performed By: #### C BC ####[facility] Mofxmtjcag3709 [place] [address]DrKianna Tripathi PROF 14(COMP METB)on 022 Albumin [Mass/Vol] 2.9 g/dL Critically low 3.4-5.0 [facility] Comment on above: Performed By: #### C MP ####[facility] Selxqxnqnn2690 [place] [address]Dr. Airam Tripathi Albumin/Globulin [Mass ratio] 0.9 {ratio} Normal [facility] Comment on above: Performed By: #### C MP ####[facility] Lkwskslfcg5642 [place] [address]Dr. Airam Tripathi ALP [Catalytic activity/Vol] 127 U/L Critically high 46-116 [facility] Comment on above: Performed By: #### C MP ####[facility] Qjaneehxfo656[address] [place], [place] [address]Dr. Airam Tripathi ALT [Catalytic activity/Vol] 22 U/L Normal 14-59 [facility] Comment on above: Performed By: #### C MP ####[facility] Npzlsbrren032[address] [place], [place] [address]Dr. Airam Tripathi Anion gap [Moles/Vol] 6.7 mmol/L Normal [facility] Comment on above: Performed By: #### C MP ####[facility] Heifhcfaah9419 [place] [address]Dr. Airam Tripathi AST [Catalytic activity/Vol] 24 U/L Normal 15-37 [facility] Comment on above: Performed By: #### C MP ####[facility] Fwuvafaotx4894 [place] [phone] Tripathi Bilirubin [Mass/Vol] 0.2 mg/dL Normal 0.2-1.0 [facility] Comment on above: Performed By: #### C MP ####[facility] Fonxvpkrop1214 [place] [address]DrKianna Tripathi Calcium [Mass/Vol] 8.2 mg/dL Critically low 8.5-10.1 [facility] Comment on above: Performed By: #### C MP ####[facility] Eoamgwgihc4794 [place] [address]Dr. Airam Tripathi Chloride [Moles/Vol] 105 mmol/L Normal 98-107 [facility] Comment on above: Performed By: #### C MP ####[facility] Ygethrqcyd8530 [place] [address]Dr. Airam Tripathi CO2 [Moles/Vol] 28.2 mmol/L Normal 21.0-32.0 [facility] Comment on above: Performed By: #### C MP ####[facility] Ibtwtusjfj6513[address] [place], [place] [address]Dr. Airam Tripathi Creatinine [Mass/Vol] 1.22 mg/dL Critically high 0.55-1.02 [facility] Comment on above: Performed By: #### C MP ####[facility] Lokxxjncfp547[address] [place], [place] [address]Dr. Airam Tripathi EGFR-AF ROMANIAN 54 mL/min/1.73m2 Critically low >=60 [facility] Comment on above: Performed By: #### C MP ####[facility] Zalxijqcml957607 [address] [place], [place] [address]Dr. Airam Tripathi EGFR-NON AF ROMANIAN 45 mL/min/1.73m2 Critically low >=60 [facility] Comment on above: Performed By: #### C MP ####[facility] Qqydwxpnmc475207 [address] [place], [place] [address]Dr. Airam Deuce Globulin (S) [Mass/Vol] 3.2 g/dL Normal [facility] Comment on above: Performed By: #### C MP ####[facility] Iauyxxnopj169[address] [place], [place] [address]Dr. Airam Deuce Glucose [Mass/Vol] 77 mg/dL Normal 74-106 [facility] Comment on above: Performed By: #### C MP ####[facility] Sfjghcxmmk2401[address] [place], [place] [address]Dr. Airam Deuce Potassium [Moles/Vol] 4.9 mmol/L Normal 3.5-5.1 [facility] Comment on above: Performed By: #### C MP ####[facility] Cigopzrphj119507 [address] [place], [place] [address]Dr. Airam Tripathi Protein [Mass/Vol] 6.1 g/dL Critically low 6.4-8.2 [facility] Comment on above: Performed By: #### C MP ####[facility] Oynxjsmeib848[address] [place], [place] [address]Dr. Airam Tripathi Sodium [Moles/Vol] 135 mmol/L Critically low 136-145 [facility] Comment on above: Performed By: #### C MP ####[facility] Kzusjwgefu85750[address] [place], [place] [address]Dr. Airam Tripathi Urea nitrogen [Mass/Vol] 30.0 mg/dL Critically high 7.0-18.0 [facility] Comment on above: Performed By: #### C MP ####[facility] Xjkafdkozi194607 [address] [place], [place] [address]Dr. Airam Tripathi Urea nitrogen/Creatinine [Mass ratio] 24.6 mg/mg Normal [facility] Comment on above: Performed By: #### C MP ####[facility] Ucugbxycyx058[address] [place], [place] [address]Dr. Airam Tripathi OSMOLALITYon 04-23-2022 Osmolality [Osmolality] 289 mosm/kg Normal 275-295 [facility] Comment on above: Performed By: #### O SMO ####[facility] Ztbkgqqyvx675[address] [place], [place] [address]Dr. Airam Tripathi CBC AUTO DIFFon 04-20-2022 BASO # 0.0 103/ul Normal 0.0-0.1 [facility] Comment on above: Performed By: #### C BC ####[facility] Wdldvyphvp153[address] [place], [place] [address]Dr. Airam Tripathi Basophils/100 WBC (Bld) 0.4 % Normal 0.2-2.0 [facility] Comment on above: Performed By: #### C BC ####[facility] Cktptflrny139[address] [place], [place] [address]Dr. Airam Tripathi EO # 0.2 103/ul Normal 0.0-0.7 [facility] Comment on above: Performed By: #### C BC ####[facility] Lxlxwxjwpb249[address] [place], [place] [address]Dr. Selenaneil Tripathi Eosinophils/100 WBC (Bld) 3.1 % Normal 0.9-7.0 [facility] Comment on above: Performed By: #### C BC ####[facility] Hobsfsxwzx867[address] [place], [place] [address]Dr. Selenaneil Tripathi Erythrocyte distribution width (RBC) [Ratio] 13.8 % Normal 11.0-15.0 [facility] Comment on above: Performed By: #### C BC ####[facility] Cbtcdcgebo[address] [place], [place] [address]Dr. Airam Tripathi Hematocrit (Bld) [Volume fraction] 29.5 % Critically low 36.0-48.0 [facility] Comment on above: Performed By: #### C BC ####[facility] Odcelsrfiy7[address] [place], [place] [address]Dr. Airam Tripathi Hemoglobin (Bld) [Mass/Vol] 9.2 g/dL Critically low 12.0-16.0 [facility] Comment on above: Performed By: #### C BC ####[facility] Adgkfigumv779[address] [place], [place] [address]Dr. Airam Tripathi IG # 0.02 10e3/ul Normal 0.00-0.03 [facility] Comment on above: Performed By: #### C BC ####[facility] Cxmofvkhly947[address] [place], [place] [address]Dr. Airam Tripathi IG % 0.4 % Normal 0.0-0.5 [facility] Comment on above: Performed By: #### C BC ####[facility] Cvuvaobpxc616[address] [place], [place] [address]DrKianna Tripathi LYMPH # 0.8 103/ul Critically low 1.2-3.8 [facility] Comment on above: Performed By: #### C BC ####[facility] Hclrtrpjrm136[address] [place], [place] [address]Dr. Airam Tripathi Lymphocytes/100 WBC (Bld) 14.0 % Critically low 20.5-60.0 [facility] Comment on above: Performed By: #### C BC ####[facility] Lxljsiikzx01[address] [place] [address]DrKianna Tripathi MANUAL DIFF REQ NO Normal [facility] Comment on above: Performed By: #### C BC ####[facility] Biftxudmkt2714 [place] [address]Dr. Airam Tripathi MCH (RBC) [Entitic mass] 30.4 pg Normal 26.7-34.0 [facility] Comment on above: Performed By: #### C BC ####[facility] Vzdcfpdlwd327807 [address] [place], [place] [address]DrKianna Tripathi MCHC (RBC) [Mass/Vol] 31.2 g/dL Normal 29.9-35.2 [facility] Comment on above: Performed By: #### C BC ####[facility] Inhhmuqaxi704107 [address] [place], [place] [address]DrKianna Tripathi MCV (RBC) [Entitic vol] 97.4 fL Normal 81.0-99.0 [facility] Comment on above: Performed By: #### C BC ####[facility] Dmgmarexxo475507 [address] [place], [place] [address]DrKianna Tripathi MONO # 0.3 103/ul Normal 0.3-0.8 [facility] Comment on above: Performed By: #### C BC ####[facility] Sukfnkcvid220807 [address] [place], [place] [address]DrKianna Tripathi Monocytes/100 WBC (Bld) 5.6 % Normal 1.7-12.0 [facility] Comment on above: Performed By: #### C BC ####[facility] Jwwwqtqhyr328807 [address] [place], [place] [address]DrKianna Tripathi NEUT # 4.2 103/ul Normal 1.4-6.5 [facility] Comment on above: Performed By: #### C BC ####[facility] Mpopxpixic342507 [address] [place], [place] [address]DrKianna Tripathi Neutrophils/100 WBC (Bld) 76.5 % Critically high 43.0-75.0 [facility] Comment on above: Performed By: #### C BC ####[facility] Vxycngipqh4893 [place] [address]DrKianna Tripathi Platelet mean volume (Bld) [Entitic vol] 9.4 fL Critically low 9.5-13.5 [facility] Comment on above: Performed By: #### C BC ####[facility] Hmdavmtxuu2204 [place] [address]DrKianna Tripathi PLT 250 103/ul Normal 150-450 [facility] Comment on above: Performed By: #### C BC ####[facility] Sxtnrahwte785[address] [place], [place] [address]DrKianna Trpiathi RBC 3.03 106/ul Critically low 4.20-5.40 [facility] Comment on above: Performed By: #### C BC ####[facility] Kjvtrjapxq616[address] [place], [place] [address]DrKianna Tripathi WBC 5.5 103/ul Normal 4.0-11.0 [facility] Comment on above: Performed By: #### C BC ####[facility] Jaomrpzrmr269107 [address] [place], [place] [address]Dr. Airam Tripathi PROF 14(COMP METB)on 022 Albumin [Mass/Vol] 2.7 g/dL Critically low 3.4-5.0 [facility] Comment on above: Performed By: #### C MP ####[facility] Avqptnklso7830 [place] [address]DrKianna Tripathi Albumin/Globulin [Mass ratio] 0.9 {ratio} Normal [facility] Comment on above: Performed By: #### C MP ####[facility] Bppntjgyjy097907 [address] [place], [place] [address]DrKianna Tripathi ALP [Catalytic activity/Vol] 113 U/L Normal 46-116 [facility] Comment on above: Performed By: #### C MP ####[facility] Pntoxgdmkj60450[address] [place], [place] [address]DrKianna Tripathi ALT [Catalytic activity/Vol] 20 U/L Normal 14-59 [facility] Comment on above: Performed By: #### C MP ####[facility] Togmksaopb8076 [place] [address]Dr. Selenaneil Deuce Anion gap [Moles/Vol] 11.1 mmol/L Normal [facility] Comment on above: Performed By: #### C MP ####[facility] Nticxsippy154707 [address] [place], [place] [address]Dr. Airam Deuce AST [Catalytic activity/Vol] 19 U/L Normal 15-37 [facility] Comment on above: Performed By: #### C MP ####[facility] Beznohgbyo906307 [address] [place], [place] [address]Dr. Airam Tripathi Bilirubin [Mass/Vol] 0.2 mg/dL Normal 0.2-1.0 [facility] Comment on above: Performed By: #### C MP ####[facility] Arrfuvpzwx689007 [address] [place], [place] [address]Dr. Airam Tripathi Calcium [Mass/Vol] 8.3 mg/dL Critically low 8.5-10.1 [facility] Comment on above: Performed By: #### C MP ####[facility] Angocvcoti484207 [address] [place], [place] [address]Dr. Airam Tripathi Chloride [Moles/Vol] 104 mmol/L Normal 98-107 [facility] Comment on above: Performed By: #### C MP ####[facility] Yawuluhsnz887[address] [place], [place] [address]Dr. Airam Tripathi CO2 [Moles/Vol] 25.3 mmol/L Normal 21.0-32.0 [facility] Comment on above: Performed By: #### C MP ####[facility] Zyqxaxokhl426807 [address] [place], [place] [address]Dr. Airam Tripathi Creatinine [Mass/Vol] 1.33 mg/dL Critically high 0.55-1.02 [facility] Comment on above: Performed By: #### C MP ####[facility] Gsxvfzlygt078107 [address] [place], [place] [address]Dr. Airam Tripathi EGFR-AF ROMANIAN 49 mL/min/1.73m2 Critically low >=60 [facility] Comment on above: Performed By: #### C MP ####[facility] Xihmsbnwrk1482 [place] [id number]. Airam Deuce EGFR-NON AF ROMANIAN 41 mL/min/1.73m2 Critically low >=60 [facility] Comment on above: Performed By: #### C MP ####[facility] Lcfahpgsng1124 [place] [phone]. Airam Deuce Globulin (S) [Mass/Vol] 3.1 g/dL Normal [facility] Comment on above: Performed By: #### C MP ####[facility] Tfyfiwdnmm343107 [address] [place], [place] [address]Dr. Airam Deuce Glucose [Mass/Vol] 88 mg/dL Normal 74-106 [facility] Comment on above: Performed By: #### C MP ####[facility] Zdgprcwsrd7112 [place] [address]Dr. Airam Deuce Potassium [Moles/Vol] 5.4 mmol/L Critically high 3.5-5.1 [facility] Comment on above: Performed By: #### C MP ####[facility] Ynqpoahagt310307 [address] [place], [place] [address]Dr. Airam Deuce Protein [Mass/Vol] 5.8 g/dL Critically low 6.4-8.2 [facility] Comment on above: Performed By: #### C MP ####[facility] Zpesldwasg2622 [place] [address]Dr. Airam Deuce Sodium [Moles/Vol] 135 mmol/L Critically low 136-145 [facility] Comment on above: Performed By: #### C MP ####[facility] Myhlqalvup810707 [address] [place], [place] [address]Dr. Airam Deuce Urea nitrogen [Mass/Vol] 38.0 mg/dL Critically high 7.0-18.0 [facility] Comment on above: Performed By: #### C MP ####[facility] Esndhtecga402107 [address] [place], [place] [address]Dr. Airam Tripathi Urea nitrogen/Creatinine [Mass ratio] 28.6 mg/mg Normal [facility] Comment on above: Performed By: #### C MP ####[facility] Sefusxpdvy192407 [address] [place], [place] [address]Dr. Airam Tripathi OSMOLALITYon 04-15-2022 Osmolality [Osmolality] 284 mosm/kg Normal 275-295 [facility] Comment on above: Performed By: #### O SMO ####[facility] Pojxmxdvah601707 [address] [place], [place] [address]Dr. Airam Tripathi CBC AUTO DIFFon 04-14-2022 BASO # 0.0 103/ul Normal 0.0-0.1 [facility] Comment on above: Performed By: #### C BC ####[facility] Dgjyrlhlfs961607 [address] [place], [place] [address]Dr. Airam Deuce Basophils/100 WBC (Bld) 0.5 % Normal 0.2-2.0 [facility] Comment on above: Performed By: #### C BC ####[facility] Uombwtzeep561307 [address] [place], [place] [address]Dr. Airam Tripathi EO # 0.3 103/ul Normal 0.0-0.7 [facility] Comment on above: Performed By: #### C BC ####[facility] Drrfwvlyzs629[address] [place], [place] [address]Dr. Airam Tripathi Eosinophils/100 WBC (Bld) 3.6 % Normal 0.9-7.0 [facility] Comment on above: Performed By: #### C BC ####[facility] Cpyytymlib66340[address] [place], [place] [address]Dr. Airam Tripathi Erythrocyte distribution width (RBC) [Ratio] 13.4 % Normal 11.0-15.0 [facility] Comment on above: Performed By: #### C BC ####[facility] Yzwkkxfgnr450707 [address] [place], [place] [address]Dr. Airam Tripathi Hematocrit (Bld) [Volume fraction] 30.6 % Critically low 36.0-48.0 [facility] Comment on above: Performed By: #### C BC ####[facility] Alvwvjlkjm9147 [place] [address]Dr. Airam Tripathi Hemoglobin (Bld) [Mass/Vol] 9.7 g/dL Critically low 12.0-16.0 [facility] Comment on above: Performed By: #### C BC ####[facility] Jebtjsknjj7209 [place] [phone]. Airam Tripathi IG # 0.08 10e3/ul Critically high 0.00-0.03 [facility] Comment on above: Performed By: #### C BC ####[facility] Vpmoprfhrl8861 [place] [phone]. Airam Tripathi IG % 0.9 % Critically high 0.0-0.5 [facility] Comment on above: Performed By: #### C BC ####[facility] Tsatwfixdp6411 [place] [address]Dr. Airam Tripathi LYMPH # 2.1 103/ul Normal 1.2-3.8 [facility] Comment on above: Performed By: #### C BC ####[facility] Eomhpaputa6704 [place] [address]Dr. Airam Tripathi Lymphocytes/100 WBC (Bld) 24.2 % Normal 20.5-60.0 [facility] Comment on above: Performed By: #### C BC ####[facility] Gjnkiphpif8637 [place] [address]Dr. Airam Tripathi MANUAL DIFF REQ NO Normal [facility] Comment on above: Performed By: #### C BC ####[facility] Lraubthvyl3275 [place] [address]Dr. Airam Tripathi MCH (RBC) [Entitic mass] 30.4 pg Normal 26.7-34.0 [facility] Comment on above: Performed By: #### C BC ####[facility] Rppupnscay1399 [place] [phone]. Airam Tripathi MCHC (RBC) [Mass/Vol] 31.7 g/dL Normal 29.9-35.2 [facility] Comment on above: Performed By: #### C BC ####[facility] Kqkkuayupf7146 [place] [phone]. Airam Tripathi MCV (RBC) [Entitic vol] 95.9 fL Normal 81.0-99.0 [facility] Comment on above: Performed By: #### C BC ####[facility] Lenrcithsc5286 [place] [address]Dr. Airam Tripathi MONO # 0.5 103/ul Normal 0.3-0.8 [facility] Comment on above: Performed By: #### C BC ####[facility] Rkxajytpij856[address] [place], [place] [address]Dr. Airam Deuce Monocytes/100 WBC (Bld) 6.0 % Normal 1.7-12.0 [facility] Comment on above: Performed By: #### C BC ####[facility] Cfaaddnjlr65360[address] [place], [place] [address]Dr. Airam Tripathi NEUT # 5.6 103/ul Normal 1.4-6.5 [facility] Comment on above: Performed By: #### C BC ####[facility] Yezpupiqmr795807 [address] [place], [place] [address]Dr. Airam Tripathi Neutrophils/100 WBC (Bld) 64.8 % Normal 43.0-75.0 [facility] Comment on above: Performed By: #### C BC ####[facility] Pwfaqdyvfs444007 [address] [place], [place] [address]Dr. Airam Deuce Platelet mean volume (Bld) [Entitic vol] 9.2 fL Critically low 9.5-13.5 [facility] Comment on above: Performed By: #### C BC ####[facility] Xeqgxqzdvr558[address] [place], [place] [address]Dr. Airam Deuce PLT 296 103/ul Normal 150-450 [facility] Comment on above: Performed By: #### C BC ####[facility] Emvorshtwr414[address] [place], [place] [address]Dr. Airam Deuce RBC 3.19 106/ul Critically low 4.20-5.40 [facility] Comment on above: Performed By: #### C BC ####[facility] Mwxberlimq568407 [address] [place], [place] [address]Dr. Airam Tripathi WBC 8.6 103/ul Normal 4.0-11.0 [facility] Comment on above: Performed By: #### C BC ####[facility] Mxddatwmxx3303 [place] [address]Dr. Airam Tripathi PROF 14(COMP METB)on 04-14-2 022 Albumin [Mass/Vol] 3.2 g/dL Critically low 3.4-5.0 [facility] Comment on above: Performed By: #### C MP ####[facility] Gwzsbappma9221 [place] [address]Dr. Airam Tripathi Albumin/Globulin [Mass ratio] 1.0 {ratio} Normal [facility] Comment on above: Performed By: #### C MP ####[facility] Aienyezzoo4151 [place] [address]Dr. Airam Tripathi ALP [Catalytic activity/Vol] 126 U/L Critically high 46-116 [facility] Comment on above: Performed By: #### C MP ####[facility] Ovfecxalmz334407 [address] [place], [place] [address]Dr. Airam Tripathi ALT [Catalytic activity/Vol] 27 U/L Normal 14-59 [facility] Comment on above: Performed By: #### C MP ####[facility] Nhctirofzs7833 [place] [address]Dr. Airam Tripathi Anion gap [Moles/Vol] 9.6 mmol/L Normal [facility] Comment on above: Performed By: #### C MP ####[facility] Lkobizbarq9409 [place] [address]Dr. Airam Tripathi AST [Catalytic activity/Vol] 25 U/L Normal 15-37 [facility] Comment on above: Performed By: #### C MP ####[facility] Zpefdfqsat164707 [address] [place], [place] [address]Dr. Airam Tripathi Bilirubin [Mass/Vol] 0.3 mg/dL Normal 0.2-1.0 [facility] Comment on above: Performed By: #### C MP ####[facility] Mzoyyaftel571207 [address] [place], [place] [address]Dr. Airam Tripathi Calcium [Mass/Vol] 8.1 mg/dL Critically low 8.5-10.1 [facility] Comment on above: Performed By: #### C MP ####[facility] Qlsrwfekkq256707 [address] [place], [place] [address]Dr. Airam Tripathi Chloride [Moles/Vol] 100 mmol/L Normal 98-107 [facility] Comment on above: Performed By: #### C MP ####[facility] Quzdsisofo062507 [address] [place], [place] [address]Dr. Airam Tripathi CO2 [Moles/Vol] 26.5 mmol/L Normal 21.0-32.0 [facility] Comment on above: Performed By: #### C MP ####[facility] Uievviieip322807 [address] [place], [place] [address]Dr. Airam Tripathi Creatinine [Mass/Vol] 1.52 mg/dL Critically high 0.55-1.02 [facility] Comment on above: Performed By: #### C MP ####[facility] Klonqpmosw236907 [address] [place], [place] [address]Dr. Airam Tripathi EGFR-AF ROMANIAN 42 mL/min/1.73m2 Critically low >=60 [facility] Comment on above: Performed By: #### C MP ####[facility] Zrclcolwoh502107 [address] [place], [place] [address]Dr. Airam Tripathi EGFR-NON AF ROMANIAN 35 mL/min/1.73m2 Critically low >=60 [facility] Comment on above: Performed By: #### C MP ####[facility] Mognpfbosf058707 [address] [place], [place] [address]Dr. Airam Tripathi Globulin (S) [Mass/Vol] 3.3 g/dL Normal [facility] Comment on above: Performed By: #### C MP ####[facility] Unekunpotu822107 [address] [place], [place] [address]Dr. Airam Tripathi Glucose [Mass/Vol] 75 mg/dL Normal 74-106 [facility] Comment on above: Performed By: #### C MP ####[facility] Glgblsxaln829207 [address] [place], [place] [address]Dr. Airam Tripathi Potassium [Moles/Vol] 4.1 mmol/L Normal 3.5-5.1 [facility] Comment on above: Performed By: #### C MP ####[facility] Swjpomuhqf2775 [place] [address]Dr. Airam Tripathi Protein [Mass/Vol] 6.5 g/dL Normal 6.4-8.2 [facility] Comment on above: Performed By: #### C MP ####[facility] Gokqmhkjde027407 [address] [place], [place] [address]Dr. Airam Tripathi Sodium [Moles/Vol] 132 mmol/L Critically low 136-145 [facility] Comment on above: Performed By: #### C MP ####[facility] Ydzfbwmnqv041607 [address] [place], [place] [address]Dr. Airam Tripathi Urea nitrogen [Mass/Vol] 40.0 mg/dL Critically high 7.0-18.0 [facility] Comment on above: Performed By: #### C MP ####[facility] Nflcxtotyl428907 [address] [place], [place] [address]Dr. Airam Tripathi Urea nitrogen/Creatinine [Mass ratio] 26.3 mg/mg Normal [facility] Comment on above: Performed By: #### C MP ####[facility] Yucwypgcma958407 [address] [place], [place] [address]Dr. Airam Tripathi OSMOLALITYon 04-10-2022 Osmolality [Osmolality] 280 mosm/kg Normal 275-295 [facility] Comment on above: Performed By: #### O SMO ####[facility] Xxxdxkjmpk7225[address] [place], [place] [address]Dr. Airam Tripathi PTH INTACTon 04-09-2022 PTH, Intact 89 pg/mL Critically high 15-65 [facility] Comment on above: Performed By: #### P THINT ####[facility] Zqiztfnmoj919207 [address] [place], [place] [address]Dr. Airam Tripathi CBC W MANUAL DIFFon 04-08-20 22 ATYPICAL LYMPH # Normal [facility] Comment on above: Performed By: #### C BCMAN ####[facility] Mhsmzzkjxq110[address] [place], [place] [address]Dr. Airam Tripathi ATYPICAL LYMPH % Normal [facility] Comment on above: Performed By: #### C BCMAN ####[facility] Whgsdbovxr5601 [place] [address]Dr. Yilan Tripathi BAND # Normal 0.0-0.3 [facility] Comment on above: Performed By: #### C BCMAN ####[facility] Luyjkeafam1354 [place] [address]Dr. Yilan Tripathi BAND % Normal 0-5 [facility] Comment on above: Performed By: #### C BCGERALDINE ####[facility] Nvjmjpwjwv328[address] [place], [place] [address]Dr. Yilan Tripathi BASOM # 0.00 103/ul Normal 0.00-0.10 [facility] Comment on above: Performed By: #### C CHRISTEN ####[facility] Gmxtdullwh3029[address] [place], [place] [address]Dr. Airam Tripathi BASOM % 0.0 % Critically low 0.2-2.0 [facility] Comment on above: Performed By: #### C CHRISTEN ####[facility] Mtohmtuxye928307 [address] [place], [place] [address]Dr. Yilan Tripathi BLAST # Normal [facility] Comment on above: Performed By: #### C CHRISTEN ####[facility] Cukfibcfrq4301[address] [place], [place] [address]Dr. Yineil Tripathi BLAST % Normal [facility] Comment on above: Performed By: #### C CHRISTEN ####[facility] Iabrzaasfc212[address] [place], [place] [address]Dr. Airam Tripathi CORRECTED WBC Normal 4.0-11.0 [facility] Comment on above: Performed By: #### C CHRISTEN ####[facility] Zwslgwgjeq4325[address] [place], [place] [address]Dr. Yineil Tripathi EOS # 0.00 103/ul Normal 0.00-0.70 [facility] Comment on above: Performed By: #### C CHRISTEN ####[facility] Dykitdlsop887[address] [place], [place] [address]Dr. Yilan Tripathi EOS% 0.0 % Critically low 0.9-7.0 [facility] Comment on above: Performed By: #### Jodee VELÁSQUEZ ####[facility] Auudesyvpv3726 [place] [phone]. Airam Tripathi HCT 29.7 % Critically low 36.0-48.0 [facility] Comment on above: Performed By: #### Jodee VELÁSQUEZ ####[facility] Wkdlgtbypv2034 [place] [phone]. Airam Tripathi HGB 9.5 g/dl Critically low 12.0-16.0 [facility] Comment on above: Performed By: #### Jodee VELÁSQUEZ ####[facility] Bukipkvycf9927 [place] [address]Dr. Airam Tripathi LYMPHM # 0.42 103/ul Critically low 1.20-3.80 [facility] Comment on above: Performed By: #### Jodee VELÁSQUEZ ####[facility] Dgqwfwhhah216[address] [place], [place] [address]Dr. Airam Tripathi LYMPHM% 7.0 % Critically low 20.5-60.0 [facility] Comment on above: Performed By: #### Jodee VELÁSQUEZ ####[facility] Szsiluusse764[address] [place], [place] [address]Dr. Airam Tripathi MCH 30.9 pg Normal 26.7-34.0 [facility] Comment on above: Performed By: #### Jodee VELÁSQUEZ ####[facility] Jktakswoxj012[address] [place], [place] [address]Dr. Airam Tripathi MCHC 32.0 g/dl Normal 29.9-35.2 [facility] Comment on above: Performed By: #### Jodee VELÁSQUEZ ####[facility] Kgfrufcghp075[address] [place], [place] [address]Dr. Airam Tripathi MCV 96.7 fL Normal 81.0-99.0 [facility] Comment on above: Performed By: #### Jodee VELÁSQUEZ ####[facility] Jrvgpmcdjj214[address] [place], [place] [address]Dr. Airam Tripathi METAMYELOCYTE # Normal [facility] Comment on above: Performed By: #### Jodee VELÁSQUEZ ####[facility] Svsjaeurqb8746 [place] [phone]. Airam Tripathi METAMYELOCYTE % Normal [facility] Comment on above: Performed By: #### Jodee VELÁSQUEZ ####[facility] Jffzqxjsjs4947 [place] [phone]. Airam Tripathi MONOM# 0.36 103/ul Normal 0.30-0.80 [facility] Comment on above: Performed By: #### Jodee VELÁSQUEZ ####[facility] Uoxgudszaq8189 [place] [phone]. Airam Tripathi MONOM% 6.0 % Normal 1.7-12.0 [facility] Comment on above: Performed By: #### Jodee VELÁSQUEZ ####[facility] Rqanarweoj1697 [place] [phone]. Airam Tripathi MPV 9.5 fL Normal 9.5-13.5 [facility] Comment on above: Performed By: #### Jodee VELÁSQUEZ ####[facility] Cefpufiiib3792 [place] [phone]. Airam Tripathi MYELOCYTE # Normal [facility] Comment on above: Performed By: #### Jodee VELÁSQUEZ ####[facility] Lxnblasbgk[address] [place], [place] [address]Dr. Airam Tripathi MYELOCYTE % Normal [facility] Comment on above: Performed By: #### Jodee VELÁSQUEZ ####[facility] Xsgylbxfiw7326 [place] [phone]. Airam Tripathi NRBC Normal [facility] Comment on above: Performed By: #### Jodee VELÁSQUEZ ####[facility] Armkdaache3673 [place] [phone]. Airam Tripathi PLT 185 103/ul Normal 150-450 [facility] Comment on above: Performed By: #### Jodee VELÁSQUEZ ####[facility] Mzthyitfsi6652 [place] [phone]. Airam Tripathi RBC 3.07 106/ul Critically low 4.20-5.40 [facility] Comment on above: Performed By: #### Jodee VELÁSQUEZ ####[facility] Emainwuasg6869 [place], [place] [address]Dl. Airam Tripathi RDW 13.6 % Normal 11.0-15.0 [facility] Comment on above: Performed By: #### C CHRISTEN ####[facility] Frcnjrnxkq7295 [place], [place] [address]Wi. Airam Tripathi SEG # 5.22 103/ul Normal 1.40-6.50 [facility] Comment on above: Performed By: #### C CHRISTEN ####[facility] Lencllxkdx6617 [place], [place] [address]Nw. Airam Tripathi SEG % 87.0 % Critically high 43.0-75.0 [facility] Comment on above: Performed By: #### C CHRISTEN ####[facility] Lkxvsxphfb1248 [place], [place] [address]Bz. Airam Tripathi WBC 6.0 103/ul Normal 4.0-11.0 [facility] Comment on above: Performed By: #### C CHRISTEN ####[facility] Spcgxrewkm6283 [place], [place] [address]Zx. Airam Tripathi FREE THYROXINE INDEX T7on FTI 1.57 Normal 1.30-4.50 [facility] Comment on above: Performed By: #### T 7, TSH, CMP ####[facility] J[address]seynmo[address] [place], [place] [address]Iy. Airam Tripathi T3U 32.0 % Normal 30.0-39.0 [facility] Comment on above: Performed By: #### T 7, TSH, CMP ####[facility] Txkztpbpro1003 [place], [place] [address]Ne. Airam Tripathi T4 [Mass/Vol] 4.90 ug/dL Normal 4.80-13.90 [facility] Comment on above: Performed By: #### T 7, TSH, CMP ####[facility] Lhymcpmxtk27[address] [place], [place] [address]Yx. Airam Tripathi PROF 14(COMP METB)on 022 Albumin [Mass/Vol] 3.0 g/dL Critically low 3.4-5.0 [facility] Comment on above: Performed By: #### T 7, TSH, CMP ####[facility] L[address]jdoro[address] [place] [address]Dr. Airam Tripathi Albumin/Globulin [Mass ratio] 1.0 {ratio} Normal [facility] Comment on above: Performed By: #### T 7, TSH, CMP ####[facility] Gqmmlhvxox[address] [place] [address]Dr. Airam Tripathi ALP [Catalytic activity/Vol] 106 U/L Normal 46-116 [facility] Comment on above: Performed By: #### T 7, TSH, CMP ####[facility] Knnrtmrhtk[address] [place], [place] [address]Dr. Airam Tripathi ALT [Catalytic activity/Vol] 20 U/L Normal 14-59 [facility] Comment on above: Performed By: #### T 7, TSH, CMP ####[facility] Iqmxgqbgbd[address] [place], [place] [address]Dr. Airam Tripathi Anion gap [Moles/Vol] 10.8 mmol/L Normal [facility] Comment on above: Performed By: #### T 7, TSH, CMP ####[facility] Mndinaucll377[address] [place], [place] [address]Dr. Airam Tripathi AST [Catalytic activity/Vol] 19 U/L Normal 15-37 [facility] Comment on above: Performed By: #### T 7, TSH, CMP ####[facility] Xgafcxxuwg7512[address] [place], [place] [address]Dr. Airam Tripathi Bilirubin [Mass/Vol] 0.3 mg/dL Normal 0.2-1.0 [facility] Comment on above: Performed By: #### T 7, TSH, CMP ####[facility] Oljrnhkjuv[address] [place], [place] [address]Dr. Airam Tripathi Calcium [Mass/Vol] 8.0 mg/dL Critically low 8.5-10.1 [facility] Comment on above: Performed By: #### T 7, TSH, CMP ####[facility] Fwpffprikd818[address] [place], [place] [address]Dr. Airam Tripathi Chloride [Moles/Vol] 100 mmol/L Normal 98-107 [facility] Comment on above: Performed By: #### T 7, TSH, CMP ####[facility] Wkvinkqvly409[address] [place], [place] [address]Dr. Airam Tripathi CO2 [Moles/Vol] 24.3 mmol/L Normal 21.0-32.0 [facility] Comment on above: Performed By: #### T 7, TSH, CMP ####[facility] Ezowicmhbp079[address] [place], [place] [address]Dr. Airam Tripathi Creatinine [Mass/Vol] 1.12 mg/dL Critically high 0.55-1.02 [facility] Comment on above: Performed By: #### T 7, TSH, CMP ####[facility] Mebotsyjxc446[address] [place], [place] [address]Dr. Airam Tripathi EGFR-AF ROMANIAN 60 mL/min/1.73m2 Normal >=60 [facility] Comment on above: Performed By: #### T 7, TSH, CMP ####[facility] Teawagavoc[address] [place], [place] [address]Dr. Airam Tripathi EGFR-NON AF ROMANIAN 50 mL/min/1.73m2 Critically low >=60 [facility] Comment on above: Performed By: #### T 7, TSH, CMP ####[facility] Pwbccecujq464[address] [place], [place] [address]Dr. Airam Tripathi Globulin (S) [Mass/Vol] 3.0 g/dL Normal [facility] Comment on above: Performed By: #### T 7, TSH, CMP ####[facility] Goemivqcgd290[address] [place], [place] [id number]. Airam Tripathi Glucose [Mass/Vol] 76 mg/dL Normal 74-106 [facility] Comment on above: Performed By: #### T 7, TSH, CMP ####[facility] Tuivjysikf9427[address] [place], [place] [address]Dr. Airam Tripathi Potassium [Moles/Vol] 4.1 mmol/L Normal 3.5-5.1 [facility] Comment on above: Performed By: #### T 7, TSH, CMP ####[facility] Mdzyijhgfv646[address] [place], [place] [address]Dr. Airam Tripathi Protein [Mass/Vol] 6.0 g/dL Critically low 6.4-8.2 [facility] Comment on above: Performed By: #### T 7, TSH, CMP ####[facility] Xywrzwbvdr705[address] [place], [place] [address]Dr. Airam Tripathi Sodium [Moles/Vol] 131 mmol/L Critically low 136-145 [facility] Comment on above: Performed By: #### T 7, TSH, CMP ####[facility] Uqunvmaqyv[address] [place], [place] [address]Dr. Airam Tripathi Urea nitrogen [Mass/Vol] 32.0 mg/dL Critically high 7.0-18.0 [facility] Comment on above: Performed By: #### T 7, TSH, CMP ####[facility] Gddepwhqkc784[address] [place], [place] [address]Dr. Airam Tripathi Urea nitrogen/Creatinine [Mass ratio] 28.6 mg/mg Normal [facility] Comment on above: Performed By: #### T 7, TSH, CMP ####[facility] Dpxgjmmxqu523[address] [place], [place] [address]Dr. Airam Deuce TSHon 04-08-2022 TSH 0.027 uIU/mL Critically low 0.358-3.740 [facility] Comment on above: Performed By: #### T 7, TSH, CMP ####[facility] Phncchfsne87280[address] [place], [place] [address]Dr. Airam Tripathi UA RANDOMon 04-08-2022 Bilirubin Ql (U) Negative Normal NEGATIVE [facility] Comment on above: Performed By: #### U A ####[facility] Sawzltcolg8537[address] [place], [place] [address]Dr. Airam Tripathi Clarity (U) CLEAR Normal CLEAR [facility] Comment on above: Performed By: #### U A ####[facility] Qitvyfeyfr823[address] [place], [place] [address]Dr. Airam Tripathi Color (U) LT. YELLOW Normal YELLOW [facility] Comment on above: Performed By: #### U A ####[facility] [address]uzpjs[address] [place] [address]Dr. Airam Tripathi Glucose Ql (U) Negative Normal NEGATIVE [facility] Comment on above: Performed By: #### U A ####[facility] S[address]kv[address]fgd[address] [place] [address]Dr. Airam Tripathi Hemoglobin Ql (U) Negative Normal NEGATIVE [facility] Comment on above: Performed By: #### U A ####[facility] Glgwzntbmi0614[address] [place], [place] [address]Dr. Airam Tripathi Ketones Ql (U) Negative Normal NEGATIVE [facility] Comment on above: Performed By: #### U A ####[facility] Vdseotwink016[address] [place], [place] [address]Dr. Airam Tripathi LEUKOCYTES Negative Normal NEGATIVE [facility] Comment on above: Performed By: #### U A ####[facility] Zyxvgtvmwi455[address] [place], [place] [address]Dr. Airam Tripathi Nitrite Ql (U) Negative Normal NEGATIVE [facility] Comment on above: Performed By: #### U A ####[facility] Pmgpucffzw339[address] [place], [place] [address]Dr. Airam Tripathi pH (U) 6.0 [pH] Normal 5-9 [facility] Comment on above: Performed By: #### U A ####[facility] Gcotitnpoq[address] [place], [place] [address]Dr. Airam Tripathi SPEC GRAVITY 1.010 Normal 1.005-<=1.02 5 [facility] Comment on above: Performed By: #### U A ####[facility] Aoojeqkfmg3214[address] [place], [place] [address]Dr. Airam Tripathi UA PROTEIN Negative Normal NEGATIVE/ TRACE [facility] Comment on above: Performed By: #### U A ####[facility] Bpjlydcbnh503[address] [place], [place] [address]Dr. Airam Deuce Urobilinogen Qn (U) 0.2 {Ligia'U}/dL Normal 0.2 - 1. 0 [facility] Comment on above: Performed By: #### U A ####[facility] [address]rfcjb[address]bu[address] [place] [address]Dr. Airam Tripathi URINE T PROTEIN CREAT RATIOo n 04-08-2022 UR PROT CREAT RAT 0.32 Normal [facility] Comment on above: Performed By: #### U RTPCR ####[facility] X[address]pr[address]holpj[address] [place] [address]Dr. Airam Tripathi UR TOTAL PROTEIN <6.0 Normal <=12.0 [facility] Comment on above: Performed By: #### U RTPCR ####[facility] Cuqaeucblz38[address] [place] [address]Dr. Airam Tripathi URINE CREAT 18.75 mg/dL Critically low 20.00-300.00 [facility] Comment on above: Performed By: #### U RTPCR ####[facility] Yflemxjrgh[address] [place], [place] [address]Dr. Airam Tripathi FERRITINon 04-06-2022 Ferritin [Mass/Vol] 99.0 ng/mL Normal 8.0-252.0 [facility] Comment on above: Performed By: #### F ETIBC, VITAD, FERR ####[facility] Yvbvpirtpm049[address] [place], [place] [address]Dr. Airam Tripathi IRON AND TIBCon 04-06-2022 % SATURATION 15.4 % Normal [facility] Comment on above: Performed By: #### F ETIBC, VITAD, FERR ####[facility] Nqsjoukoux86[address] [place], [place] [address]Dr. Airam Tripathi Iron [Mass/Vol] 43.0 ug/dL Critically low 50.0-170.0 [facility] Comment on above: Performed By: #### F ETIBC, VITAD, FERR ####[facility] Phatmwdbkd376[address] [place], [place] [address]Dr. Airam Tripathi TIBC DIRECT 280.0 ug/dL Normal 250.0-450.0 [facility] Comment on above: Performed By: #### F ETIBC, VITAD, FERR ####[facility] Dwtunnbweg058[address] [place], [place] [address]Dr. Airam Tripathi PROF 14(COMP METB)on 022 Albumin [Mass/Vol] 3.2 g/dL Critically low 3.4-5.0 [facility] Comment on above: Performed By: #### C MP, URIC ####[facility] V[address]pm[address]rm[address] [place] [address]Dr. Airam Tripathi Albumin/Globulin [Mass ratio] 1.0 {ratio} Normal [facility] Comment on above: Performed By: #### C MP, URIC ####[facility] Srfirxpbir10[address] [place] [address]Dr. Airam Tripathi ALP [Catalytic activity/Vol] 118 U/L Critically high 46-116 [facility] Comment on above: Performed By: #### C MP, URIC ####[facility] Basikbcwme[address] [place] [address]Dr. Airam Tripathi ALT [Catalytic activity/Vol] 24 U/L Normal 14-59 [facility] Comment on above: Performed By: #### C MP, URIC ####[facility] Phvalsyamc4[address] [place] [address]Dr. Airam Tripathi Anion gap [Moles/Vol] 14.4 mmol/L Normal [facility] Comment on above: Performed By: #### C MP, URIC ####[facility] Ocpnebwijo[address] [place] [address]Dr. Airam Tripathi AST [Catalytic activity/Vol] 21 U/L Normal 15-37 [facility] Comment on above: Performed By: #### C MP, URIC ####[facility] Jzxycmnryh4[address] [place] [address]Dr. Airam Tripathi Bilirubin [Mass/Vol] 0.3 mg/dL Normal 0.2-1.0 [facility] Comment on above: Performed By: #### C MP, URIC ####[facility] Wsnfjcktjr09[address] [place] [address]Dr. Airam Tripathi Calcium [Mass/Vol] 8.0 mg/dL Critically low 8.5-10.1 [facility] Comment on above: Performed By: #### C MP, URIC ####[facility] Lgl[address]wsalk39[address] [place] [address]Dr. Airam Tripathi Chloride [Moles/Vol] 98 mmol/L Normal 98-107 [facility] Comment on above: Performed By: #### C MP, URIC ####[facility] Herprsxgen0420 [place] [address]Dr. Airam Tripathi CO2 [Moles/Vol] 22.0 mmol/L Normal 21.0-32.0 [facility] Comment on above: Performed By: #### C MP, URIC ####[facility] Ugogegacgv006107 [address] [place], [place] [address]Dr. Airam Tripathi Creatinine [Mass/Vol] 1.86 mg/dL Critically high 0.55-1.02 [facility] Comment on above: Performed By: #### C MP, URIC ####[facility] Mvizislvjk474[address] [place], [place] [address]Dr. Airam Tripathi EGFR-AF ROMANIAN 33 mL/min/1.73m2 Critically low >=60 [facility] Comment on above: Performed By: #### C MP, URIC ####[facility] Crjgatbaxv067[address] [place], [place] [address]Dr. Airam Tripathi EGFR-NON AF ROMANIAN 28 mL/min/1.73m2 Critically low >=60 [facility] Comment on above: Performed By: #### C MP, URIC ####[facility] Xjtfbwfizt5727[address] [place], [place] [address]Dr. Airam Tripathi Globulin (S) [Mass/Vol] 3.1 g/dL Normal [facility] Comment on above: Performed By: #### C MP, URIC ####[facility] Wnhgkmwjse756[address] [place], [place] [address]Dr. Airam Tripathi Glucose [Mass/Vol] 93 mg/dL Normal 74-106 [facility] Comment on above: Performed By: #### C MP, URIC ####[facility] Uwdycfhoxv7414[address] [place], [place] [address]Dr. Airam Tripathi Potassium [Moles/Vol] 4.4 mmol/L Normal 3.5-5.1 [facility] Comment on above: Performed By: #### C MP, URIC ####[facility] Fyhpebfild9[address] [place] [address]Dr. Airam Tripathi Protein [Mass/Vol] 6.3 g/dL Critically low 6.4-8.2 [facility] Comment on above: Performed By: #### C MP, URIC ####[facility] Vkuupizdaa455507 [address] [place], [place] [address]Dr. Airam Tripathi Sodium [Moles/Vol] 130 mmol/L Critically low 136-145 [facility] Comment on above: Performed By: #### C MP, URIC ####[facility] Favcyledfx246[address] [place], [place] [address]Dr. Airam Tripathi Urea nitrogen [Mass/Vol] 49.0 mg/dL Critically high 7.0-18.0 [facility] Comment on above: Performed By: #### C MP, URIC ####[facility] Ceauvjnaar168407 [address] [place], [place] [address]Dr. Airam Tripathi Urea nitrogen/Creatinine [Mass ratio] 26.3 mg/mg Normal [facility] Comment on above: Performed By: #### C MP, URIC ####[facility] Fbhqwiqmxk10[address] [place], [place] [address]Dr. Airam Tripathi URIC ACID SERUMon 04-06-2022 Urate [Mass/Vol] 6.5 mg/dL Critically high 2.6-6.0 [facility] Comment on above: Performed By: #### C MP, URIC ####[facility] Ixmhagmzfw544[address] [place], [place] [address]Dr. Airam Tripathi VITAMIN D 25 OHon 04-06-2022 VIT D 25-OH 74.5 ng/mL Normal [facility] Comment on above: Performed By: #### F ETIBC, VITAD, FERR ####[facility] Okpzvoffms864[address] [place], [place] [address]Dr. Airam Tripathi VIT D RANGES SEE BELOW Normal [facility] Comment on above: Result Comment: <20 ng/mL Vit D deficient 20 - <30 ng/mL Vit D insufficient 30 - 100 ng/mL Vit D sufficient >100 ng/mL Potential Toxicity Performed By: #### F ETIBC, VITAD, FERR ####[facility] Zzrddgeycg4925[address] [place], [place] [address]Dr. Airam Tripathi OSMOLALITYon 04-01-2022 Osmolality [Osmolality] 284 mosm/kg Normal 275-295 [facility] Comment on above: Performed By: #### O SMO ####[facility] Rbekrippcr985[address] [place], [place] [address]Dr. Airam Tripathi CBC AUTO DIFFon 03-31-2022 BASO # 0.0 103/ul Normal 0.0-0.1 [facility] Comment on above: Performed By: #### C BC ####[facility] Odiccsruaf87380[address] [place], [place] [address]Dr. Airam Tripathi Basophils/100 WBC (Bld) 0.3 % Normal 0.2-2.0 [facility] Comment on above: Performed By: #### C BC ####[facility] Ckrpxemjeq69450[address] [place], [place] [address]Dr. Airam Tripathi EO # 0.1 103/ul Normal 0.0-0.7 [facility] Comment on above: Performed By: #### C BC ####[facility] Hcnekowicl[address] [place], [place] [address]DrKianna Tripathi Eosinophils/100 WBC (Bld) 2.0 % Normal 0.9-7.0 [facility] Comment on above: Performed By: #### C BC ####[facility] Hunvgdorne05[address] [place], [place] [address]Dr. Airam Tripathi Erythrocyte distribution width (RBC) [Ratio] 13.5 % Normal 11.0-15.0 [facility] Comment on above: Performed By: #### C BC ####[facility] Uehqeiniqe623[address] [place], [place] [address]DrKianna Tripathi Hematocrit (Bld) [Volume fraction] 32.5 % Critically low 36.0-48.0 [facility] Comment on above: Performed By: #### C BC ####[facility] Rczhczudqa418707 [address] [place], [place] [address]Dr. Airam Tripathi Hemoglobin (Bld) [Mass/Vol] 10.1 g/dL Critically low 12.0-16.0 [facility] Comment on above: Performed By: #### C BC ####[facility] Cmnmypivwk[address] [place] [address]DrKianna Tripathi IG # 0.03 10e3/ul Normal 0.00-0.03 [facility] Comment on above: Performed By: #### C BC ####[facility] Lqtpddtahe5541 [place] [address]DrKianna Tripathi IG % 0.4 % Normal 0.0-0.5 [facility] Comment on above: Performed By: #### C BC ####[facility] Lcrjpwxovp1219[address] [place], [place] [address]DrKianna Tripathi LYMPH # 1.6 103/ul Normal 1.2-3.8 [facility] Comment on above: Performed By: #### C BC ####[facility] Ozvtcfddwn860[address] [place], [place] [address]DrKianna Tripathi Lymphocytes/100 WBC (Bld) 22.6 % Normal 20.5-60.0 [facility] Comment on above: Performed By: #### C BC ####[facility] Nzplynhply227[address] [place], [place] [address]DrKianna Selenaneil Tripathi MANUAL DIFF REQ NO Normal [facility] Comment on above: Performed By: #### C BC ####[facility] Kqfarqvqey60[address] [place], [place] [address]DrKianna Tripathi MCH (RBC) [Entitic mass] 30.5 pg Normal 26.7-34.0 [facility] Comment on above: Performed By: #### C BC ####[facility] Wwgimjvndw226[address] [place], [place] [address]DrKianna Tripathi MCHC (RBC) [Mass/Vol] 31.1 g/dL Normal 29.9-35.2 [facility] Comment on above: Performed By: #### C BC ####[facility] Rzldipygvd367[address] [place], [place] [address]DrKianna Tripathi MCV (RBC) [Entitic vol] 98.2 fL Normal 81.0-99.0 [facility] Comment on above: Performed By: #### C BC ####[facility] Wesvlvcwqu5516[address] [place], [place] [address]DrKianna Airam Tripathi MONO # 0.5 103/ul Normal 0.3-0.8 [facility] Comment on above: Performed By: #### C BC ####[facility] Aiywhvmxth723[address] [place], [place] [address]DrKianna Airam Deuce Monocytes/100 WBC (Bld) 7.3 % Normal 1.7-12.0 [facility] Comment on above: Performed By: #### C BC ####[facility] Djsnfmhtvn609[address] [place], [place] [address]DrKianna Airam Tripathi NEUT # 4.7 103/ul Normal 1.4-6.5 [facility] Comment on above: Performed By: #### C BC ####[facility] Njhzulmktl3612[address] [place], [place] [address]DrKianna Selenaneil Tripathi Neutrophils/100 WBC (Bld) 67.4 % Normal 43.0-75.0 [facility] Comment on above: Performed By: #### C BC ####[facility] Byagxmevcl487[address] [place], [place] [address]DrKianna Airam Deuce Platelet mean volume (Bld) [Entitic vol] 9.5 fL Normal 9.5-13.5 [facility] Comment on above: Performed By: #### C BC ####[facility] Yjmorympdk623[address] [place], [place] [address]DrKianna Airam Deuce PLT 273 103/ul Normal 150-450 [facility] Comment on above: Performed By: #### C BC ####[facility] Lorxzojegu50350[address] [place], [place] [address]DrKianna Tripathi RBC 3.31 106/ul Critically low 4.20-5.40 [facility] Comment on above: Performed By: #### C BC ####[facility] Nvldeuhzal64360[address] [place], [place] [address]DrKianna Tripathi WBC 7.0 103/ul Normal 4.0-11.0 [facility] Comment on above: Performed By: #### C BC ####[facility] Lyhjrcsuon050[address] [place] [address]Dr. Airam Tripathi PROF 14(COMP METB)on 022 Albumin [Mass/Vol] 3.4 g/dL Normal 3.4-5.0 [facility] Comment on above: Performed By: #### C MP ####[facility] [address] [place] [address]Dr. Airam Tripathi Albumin/Globulin [Mass ratio] 1.1 {ratio} Normal [facility] Comment on above: Performed By: #### C MP ####[facility] Mdsqvphdex16[address] [place], [place] [address]Dr. Airam Tripathi ALP [Catalytic activity/Vol] 107 U/L Normal 46-116 [facility] Comment on above: Performed By: #### C MP ####[facility] Loqxogdygb878[address] [place], [place] [address]Dr. Airam Tripathi ALT [Catalytic activity/Vol] 22 U/L Normal 14-59 [facility] Comment on above: Performed By: #### C MP ####[facility] Gouleuenxk687[address] [place], [place] [address]Dr. Airam Tripathi Anion gap [Moles/Vol] 6.8 mmol/L Normal [facility] Comment on above: Performed By: #### C MP ####[facility] Lqljcapmiy5[address] [place] [address]Dr. Airam Tripathi AST [Catalytic activity/Vol] 23 U/L Normal 15-37 [facility] Comment on above: Performed By: #### C MP ####[facility] Znljeumvls[address]674 [place] [id number] Tripathi Bilirubin [Mass/Vol] 0.2 mg/dL Normal 0.2-1.0 [facility] Comment on above: Performed By: #### C MP ####[facility] Wlfxwrsddq9407 [place] [address]Dr. Airam Tripathi Calcium [Mass/Vol] 8.4 mg/dL Critically low 8.5-10.1 [facility] Comment on above: Performed By: #### C MP ####[facility] Vcgwjvizkz045[address] [place] [address]Dr. Airam Tripathi Chloride [Moles/Vol] 100 mmol/L Normal 98-107 [facility] Comment on above: Performed By: #### C MP ####[facility] U[address]apbbwdl3[address] [place] [id number]. Airam Tripathi CO2 [Moles/Vol] 29.9 mmol/L Normal 21.0-32.0 [facility] Comment on above: Performed By: #### C MP ####[facility] Ohnvkfmvbn1563 [place] [address]Dr. Airam Tripathi Creatinine [Mass/Vol] 1.20 mg/dL Critically high 0.55-1.02 [facility] Comment on above: Performed By: #### C MP ####[facility] Gqoiqtyszx811[address] [place], [place] [address]Dr. Airam Tripathi EGFR-AF ROMANIAN 56 mL/min/1.73m2 Critically low >=60 [facility] Comment on above: Performed By: #### C MP ####[facility] Awhlpxaasl047[address] [place], [place] [address]Dr. Airam Tripathi EGFR-NON AF ROMANIAN 46 mL/min/1.73m2 Critically low >=60 [facility] Comment on above: Performed By: #### C MP ####[facility] Rrwyuyrixr2525[address] [place], [place] [address]Dr. Airam Deuce Globulin (S) [Mass/Vol] 3.0 g/dL Normal [facility] Comment on above: Performed By: #### C MP ####[facility] Wgezmdgoms6826 [place] [id number]. Airam Deuce Glucose [Mass/Vol] 57 mg/dL Critically low 74-106 [facility] Comment on above: Performed By: #### C MP ####[facility] Xciwpmfjwj6657 [place] [id number]. Airam Deuce Potassium [Moles/Vol] 3.7 mmol/L Normal 3.5-5.1 [facility] Comment on above: Performed By: #### C MP ####[facility] Yfgdywfvvo618[address] [place], [place] [address]Dr. Airam Tripathi Protein [Mass/Vol] 6.4 g/dL Normal 6.4-8.2 [facility] Comment on above: Performed By: #### C MP ####[facility] Glmhpsfewa[address] [place], [place] [address]Dr. Airam Tripathi Sodium [Moles/Vol] 133 mmol/L Critically low 136-145 [facility] Comment on above: Performed By: #### C MP ####[facility] Yoyuwskyty[address] [place], [place] [address]Dr. Airam Tripathi Urea nitrogen [Mass/Vol] 39.0 mg/dL Critically high 7.0-18.0 [facility] Comment on above: Performed By: #### C MP ####[facility] Jpyxbaclty677[address] [place], [place] [address]Dr. Airam Tripathi Urea nitrogen/Creatinine [Mass ratio] 32.5 mg/mg Normal [facility] Comment on above: Performed By: #### C MP ####[facility] Qkhysbecvm[address] [place], [place] [address]Dr. Airam Tripathi OSMOLALITYon 03-24-2022 Osmolality [Osmolality] 285 mosm/kg Normal 275-295 [facility] Comment on above: Performed By: #### O SMO ####[facility] Cylyujsfwh7[address] [place], [place] [address]Dr. Airam Tripathi CBC AUTO DIFFon 03-22-2022 BASO # 0.0 103/ul Normal 0.0-0.1 [facility] Comment on above: Performed By: #### C BC ####[facility] Ncspytljzf774[address] [place], [place] [address]Dr. Airam Tripathi Basophils/100 WBC (Bld) 0.4 % Normal 0.2-2.0 [facility] Comment on above: Performed By: #### C BC ####[facility] Bzhosnxzmc893207 [address] [place], [place] [address]Dr. Airam Tripathi EO # 0.2 103/ul Normal 0.0-0.7 [facility] Comment on above: Performed By: #### C BC ####[facility] J[address]ksstfcg[address] [place] [address]Dr. Selenaneil Tripathi Eosinophils/100 WBC (Bld) 2.3 % Normal 0.9-7.0 [facility] Comment on above: Performed By: #### C BC ####[facility] Jaqvmjqnom75110[address] [place], [place] [address]Dr. Selenaneil Tripathi Erythrocyte distribution width (RBC) [Ratio] 13.9 % Normal 11.0-15.0 [facility] Comment on above: Performed By: #### C BC ####[facility] Ddbfjyzhgf788[address] [place], [place] [address]Dr. Airam Tripathi Hematocrit (Bld) [Volume fraction] 32.6 % Critically low 36.0-48.0 [facility] Comment on above: Performed By: #### C BC ####[facility] Xlwncarrnd9829[address] [place], [place] [address]Dr. Airam Tripathi Hemoglobin (Bld) [Mass/Vol] 10.3 g/dL Critically low 12.0-16.0 [facility] Comment on above: Performed By: #### C BC ####[facility] Znfgjarzci1118[address] [place], [place] [address]Dr. Airam Tripathi IG # 0.11 10e3/ul Critically high 0.00-0.03 [facility] Comment on above: Performed By: #### C BC ####[facility] Aoxfsxxcqy466[address] [place], [place] [address]Dr. Airam Tripathi IG % 1.4 % Critically high 0.0-0.5 [facility] Comment on above: Performed By: #### C BC ####[facility] Nhwjqwjosb59450[address] [place], [place] [address]Dr. Airam Tripathi LYMPH # 1.3 103/ul Normal 1.2-3.8 [facility] Comment on above: Performed By: #### C BC ####[facility] Ziojtdsjqh348507 [address] [place], [place] [address]Dr. Airam Tripathi Lymphocytes/100 WBC (Bld) 15.9 % Critically low 20.5-60.0 [facility] Comment on above: Performed By: #### C BC ####[facility] Qgyavdlhyj2136 [place] [address]DrKianna Tripathi MANUAL DIFF REQ NO Normal [facility] Comment on above: Performed By: #### C BC ####[facility] Omrhagvqla4389 [place] [address]Dr. Airam Tripathi MCH (RBC) [Entitic mass] 30.7 pg Normal 26.7-34.0 [facility] Comment on above: Performed By: #### C BC ####[facility] Kqnebpbirg829[address] [place], [place] [address]DrKianna Tripathi MCHC (RBC) [Mass/Vol] 31.6 g/dL Normal 29.9-35.2 [facility] Comment on above: Performed By: #### C BC ####[facility] Thhdchefmh422207 [address] [place], [place] [address]Dr. Airam Tripathi MCV (RBC) [Entitic vol] 97.0 fL Normal 81.0-99.0 [facility] Comment on above: Performed By: #### C BC ####[facility] Vlskvtcfxf535[address] [place], [place] [address]DrKianna Tripathi MONO # 0.6 103/ul Normal 0.3-0.8 [facility] Comment on above: Performed By: #### C BC ####[facility] Prkviazegl585[address] [place], [place] [address]DrKianna Tripathi Monocytes/100 WBC (Bld) 6.9 % Normal 1.7-12.0 [facility] Comment on above: Performed By: #### C BC ####[facility] Noamxapert124807 [address] [place], [place] [address]DrKianna Tripathi NEUT # 5.9 103/ul Normal 1.4-6.5 [facility] Comment on above: Performed By: #### C BC ####[facility] Ipqctgjoro1069[address] [place], [place] [address]DrKianna Tripathi Neutrophils/100 WBC (Bld) 73.1 % Normal 43.0-75.0 [facility] Comment on above: Performed By: #### C BC ####[facility] Yzvpygigbd[address] [place] [id number] Tripathi Platelet mean volume (Bld) [Entitic vol] 9.5 fL Normal 9.5-13.5 [facility] Comment on above: Performed By: #### C BC ####[facility] Mzitxzwuuo2126 [place] [address]DrKianna Tripathi PLT 313 103/ul Normal 150-450 [facility] Comment on above: Performed By: #### C BC ####[facility] Cojbqcdhsa8158 [place] [address]DrKianna Tripathi RBC 3.36 106/ul Critically low 4.20-5.40 [facility] Comment on above: Performed By: #### C BC ####[facility] Lziowjwppc836[address] [place], [place] [address]DrKianna Tripathi WBC 8.1 103/ul Normal 4.0-11.0 [facility] Comment on above: Performed By: #### C BC ####[facility] Ybkjxqlmuz823[address] [place], [place] [address]Dr. Airam Tripathi PROF 14(COMP METB)on 022 Albumin [Mass/Vol] 3.3 g/dL Critically low 3.4-5.0 [facility] Comment on above: Performed By: #### C MP ####[facility] Rgdhbotduc7099 [place] [address]DrKianna Tripathi Albumin/Globulin [Mass ratio] 1.0 {ratio} Normal [facility] Comment on above: Performed By: #### C MP ####[facility] Hpzqczwyeg927[address] [place], [place] [address]DrKianna Tripathi ALP [Catalytic activity/Vol] 113 U/L Normal 46-116 [facility] Comment on above: Performed By: #### C MP ####[facility] Zzmzvjlygs4261 [place] [address]Dr. Airam Tripathi ALT [Catalytic activity/Vol] 21 U/L Normal 14-59 [facility] Comment on above: Performed By: #### C MP ####[facility] Gotfzjcqgm3538 [place] [id number]. Airam Deuce Anion gap [Moles/Vol] 12.2 mmol/L Normal Th [facility] Comment on above: Performed By: #### C MP ####[facility] Fuexofzhjf857[address] [place], [place] [address]Dr. Airam Deuce AST [Catalytic activity/Vol] 21 U/L Normal 15-37 [facility] Comment on above: Performed By: #### C MP ####[facility] Fngiolmfss9312[address] [place], [place] [address]Dr. Airam Tripathi Bilirubin [Mass/Vol] 0.2 mg/dL Normal 0.2-1.0 [facility] Comment on above: Performed By: #### C MP ####[facility] Pgmkkykmfm8916[address] [place], [place] [address]Dr. Airam Tripathi Calcium [Mass/Vol] 8.4 mg/dL Critically low 8.5-10.1 [facility] Comment on above: Performed By: #### C MP ####[facility] Ouxdqpvutw065[address] [place], [place] [address]Dr. Airam Tripathi Chloride [Moles/Vol] 103 mmol/L Normal 98-107 [facility] Comment on above: Performed By: #### C MP ####[facility] Qjntgrpelq85350[address] [place], [place] [address]Dr. Airam Tripathi CO2 [Moles/Vol] 24.4 mmol/L Normal 21.0-32.0 [facility] Comment on above: Performed By: #### C MP ####[facility] Voygwznblp222307 [address] [place], [place] [address]Dr. Airam Tripathi Creatinine [Mass/Vol] 1.11 mg/dL Critically high 0.55-1.02 [facility] Comment on above: Performed By: #### C MP ####[facility] Lmtncenukh670[address] [place], [place] [address]Dr. Airam Tripathi EGFR-AF ROMANIAN >60 Normal >=60 [facility] Comment on above: Performed By: #### C MP ####[facility] Ipgohbigfi3765 [place] [id number]. Airam Deuce EGFR-NON AF ROMANIAN 50 mL/min/1.73m2 Critically low >=60 [facility] Comment on above: Performed By: #### C MP ####[facility] Zuvbetcmda5300 [place] [address]Dr. Airam Deuce Globulin (S) [Mass/Vol] 3.2 g/dL Normal [facility] Comment on above: Performed By: #### C MP ####[facility] Lztqpsigwh2702 [place] [address]Dr. Airam Deuce Glucose [Mass/Vol] 84 mg/dL Normal 74-106 [facility] Comment on above: Performed By: #### C MP ####[facility] Rkrnhentyz27230[address] [place], [place] [address]Dr. Airam Deuce Potassium [Moles/Vol] 4.6 mmol/L Normal 3.5-5.1 [facility] Comment on above: Performed By: #### C MP ####[facility] Vczpalpyta584607 [address] [place], [place] [address]Dr. Airam Deuce Protein [Mass/Vol] 6.5 g/dL Normal 6.4-8.2 [facility] Comment on above: Performed By: #### C MP ####[facility] Xtekpigdgt3041 [place] [address]Dr. Airam Deuce Sodium [Moles/Vol] 135 mmol/L Critically low 136-145 [facility] Comment on above: Performed By: #### C MP ####[facility] Krnrajntgu78350[address] [place], [place] [address]Dr. Selenaneil Deuce Urea nitrogen [Mass/Vol] 39.0 mg/dL Critically high 7.0-18.0 [facility] Comment on above: Performed By: #### C MP ####[facility] Gnfpojgfux112307 [address] [place], [place] [address]Dr. Airam Tripathi Urea nitrogen/Creatinine [Mass ratio] 35.1 mg/mg Normal [facility] Comment on above: Performed By: #### C MP ####[facility] Mgknxvnsfy145307 [address] [place], [place] [address]Dr. Airam Tripathi OSMOLALITYon 03-17-2022 Osmolality [Osmolality] 277 mosm/kg Normal 275-295 [facility] Comment on above: Performed By: #### O SMO ####[facility] Ahgsfpdjci095307 [address] [place], [place] [address]Dr. Airam Tripathi CBC AUTO DIFFon 03-15-2022 BASO # 0.0 103/ul Normal 0.0-0.1 [facility] Comment on above: Performed By: #### C BC ####[facility] Unrmoocevx237507 [address] [place], [place] [address]DrKianna Tripathi Basophils/100 WBC (Bld) 0.4 % Normal 0.2-2.0 [facility] Comment on above: Performed By: #### C BC ####[facility] Sorgglycgr06340[address] [place], [place] [address]DrKianna Tripathi EO # 0.1 103/ul Normal 0.0-0.7 [facility] Comment on above: Performed By: #### C BC ####[facility] Eftuftscvz445[address] [place], [place] [address]DrKianna Tripathi Eosinophils/100 WBC (Bld) 2.4 % Normal 0.9-7.0 [facility] Comment on above: Performed By: #### C BC ####[facility] Ojbiynmgxp603707 [address] [place], [place] [address]DrKianna Tripathi Erythrocyte distribution width (RBC) [Ratio] 13.9 % Normal 11.0-15.0 [facility] Comment on above: Performed By: #### C BC ####[facility] Cxebbrtkuc264907 [address] [place], [place] [address]DrKianna Tripathi Hematocrit (Bld) [Volume fraction] 31.2 % Critically low 36.0-48.0 [facility] Comment on above: Performed By: #### C BC ####[facility] Yuyuegqwgt146[address] [place], [place] [address]DrKianna Tripathi Hemoglobin (Bld) [Mass/Vol] 9.9 g/dL Critically low 12.0-16.0 [facility] Comment on above: Performed By: #### C BC ####[facility] Jrxhryzjbn7396 [place] [address]DrKianna Tripathi IG # 0.03 10e3/ul Normal 0.00-0.03 [facility] Comment on above: Performed By: #### C BC ####[facility] Nqbnnzdclr219307 [address] [place], [place] [address]DrKianna Tripathi IG % 0.6 % Critically high 0.0-0.5 [facility] Comment on above: Performed By: #### C BC ####[facility] Phsakeckif100[address] [place], [place] [address]DrKianna Tripathi LYMPH # 1.5 103/ul Normal 1.2-3.8 [facility] Comment on above: Performed By: #### C BC ####[facility] Rkuoedhvbt697207 [address] [place], [place] [address]DrKianna Tripathi Lymphocytes/100 WBC (Bld) 29.4 % Normal 20.5-60.0 [facility] Comment on above: Performed By: #### C BC ####[facility] Aqmuasxugd657[address] [place], [place] [address]DrKianna Tripathi MANUAL DIFF REQ NO Normal [facility] Comment on above: Performed By: #### C BC ####[facility] Ntqbapokyn655[address] [place], [place] [address]DrKianna Tripathi MCH (RBC) [Entitic mass] 30.5 pg Normal 26.7-34.0 [facility] Comment on above: Performed By: #### C BC ####[facility] Zokmeebkyi35750[address] [place], [place] [address]DrKianna Tripathi MCHC (RBC) [Mass/Vol] 31.7 g/dL Normal 29.9-35.2 [facility] Comment on above: Performed By: #### C BC ####[facility] Ylcaqlnhby223907 [address] [place], [place] [address]DrKianna Tripathi MCV (RBC) [Entitic vol] 96.0 fL Normal 81.0-99.0 [facility] Comment on above: Performed By: #### C BC ####[facility] Ruszvczeld973207 [address] [place], [place] [address]DrKianna Airam Tripathi MONO # 0.4 103/ul Normal 0.3-0.8 [facility] Comment on above: Performed By: #### C BC ####[facility] Prxpkrhulf999307 [address] [place], [place] [address]Dr. Airam Deuce Monocytes/100 WBC (Bld) 7.0 % Normal 1.7-12.0 [facility] Comment on above: Performed By: #### C BC ####[facility] Mmgpfugaef339607 [address] [place], [place] [address]Dr. Airam Tripathi NEUT # 3.0 103/ul Normal 1.4-6.5 [facility] Comment on above: Performed By: #### C BC ####[facility] Uccgruhqse465207 [address] [place], [place] [address]Dr. eSlenaneil Tripathi Neutrophils/100 WBC (Bld) 60.2 % Normal 43.0-75.0 [facility] Comment on above: Performed By: #### C BC ####[facility] Yyywkkuexx37260[address] [place], [place] [address]DrKianna Airam Deuce Platelet mean volume (Bld) [Entitic vol] 9.6 fL Normal 9.5-13.5 [facility] Comment on above: Performed By: #### C BC ####[facility] Kytatywmov4214[address] [place], [place] [address]Dr. Airam Deuce PLT 258 103/ul Normal 150-450 [facility] Comment on above: Performed By: #### C BC ####[facility] Ucoqicfxik947307 [address] [place], [place] [address]Dr. Airam Tripathi RBC 3.25 106/ul Critically low 4.20-5.40 [facility] Comment on above: Performed By: #### C BC ####[facility] Koidsndsnv761207 [address] [place], [place] [address]Dr. Airam Tripathi WBC 5.0 103/ul Normal 4.0-11.0 [facility] Comment on above: Performed By: #### C BC ####[facility] Sgxthckrev6534 [place] [address]Dr. Airam Tripathi PROF 14(COMP METB)on 022 Albumin [Mass/Vol] 3.3 g/dL Critically low 3.4-5.0 [facility] Comment on above: Performed By: #### C MP ####[facility] Miusmzzvwx328807 [address] [place], [place] [address]Dr. Airam Tripathi Albumin/Globulin [Mass ratio] 1.1 {ratio} Normal [facility] Comment on above: Performed By: #### C MP ####[facility] Wavzoebnex868007 [address] [place], [place] [address]Dr. Airam Tripathi ALP [Catalytic activity/Vol] 106 U/L Normal 46-116 [facility] Comment on above: Performed By: #### C MP ####[facility] Qxebjwywzt331207 [address] [place], [place] [address]Dr. Airam Tripathi ALT [Catalytic activity/Vol] 22 U/L Normal 14-59 [facility] Comment on above: Performed By: #### C MP ####[facility] Znmpfsdvtk068707 [address] [place], [place] [address]Dr. Airam Tripathi Anion gap [Moles/Vol] 11.4 mmol/L Normal [facility] Comment on above: Performed By: #### C MP ####[facility] Fcplawodnj329507 [address] [place], [place] [address]Dr. Airam Tripathi AST [Catalytic activity/Vol] 22 U/L Normal 15-37 [facility] Comment on above: Performed By: #### C MP ####[facility] Rmuheywxhb495907 [address] [place], [place] [address]Dr. Airam Tripathi Bilirubin [Mass/Vol] 0.3 mg/dL Normal 0.2-1.0 [facility] Comment on above: Performed By: #### C MP ####[facility] Kkysvbrwhd965[address] [place], [place] [address]Dr. Airam Tripathi Calcium [Mass/Vol] 8.1 mg/dL Critically low 8.5-10.1 [facility] Comment on above: Performed By: #### C MP ####[facility] Pzujdsdnve9520 [place] [address]Dr. Airam Deuce Chloride [Moles/Vol] 100 mmol/L Normal 98-107 [facility] Comment on above: Performed By: #### C MP ####[facility] Leiqpesrol949707 [address] [place], [place] [address]Dr. Airam Deuce CO2 [Moles/Vol] 25.6 mmol/L Normal 21.0-32.0 [facility] Comment on above: Performed By: #### C MP ####[facility] Lpujeicnjl255[address] [place], [place] [address]Dr. Airam Deuce Creatinine [Mass/Vol] 1.21 mg/dL Critically high 0.55-1.02 [facility] Comment on above: Performed By: #### C MP ####[facility] Apfscfrujp2637[address] [place], [place] [address]Dr. Airam Deuce EGFR-AF ROMANIAN 55 mL/min/1.73m2 Critically low >=60 [facility] Comment on above: Performed By: #### C MP ####[facility] Sqbgwvwrhb868[address] [place], [place] [address]Dr. Airam Deuce EGFR-NON AF ROMANIAN 45 mL/min/1.73m2 Critically low >=60 [facility] Comment on above: Performed By: #### C MP ####[facility] Dxmtpmpsks572407 [address] [place], [place] [address]Dr. Selenaneil Tripathi Globulin (S) [Mass/Vol] 3.0 g/dL Normal [facility] Comment on above: Performed By: #### C MP ####[facility] Tgofbhymdc254207 [address] [place], [place] [address]Dr. Airam Tripathi Glucose [Mass/Vol] 84 mg/dL Normal 74-106 [facility] Comment on above: Performed By: #### C MP ####[facility] Kaoqemgllo821107 [address] [place], [place] [address]Dr. Airam Tripathi Potassium [Moles/Vol] 4.0 mmol/L Normal 3.5-5.1 [facility] Comment on above: Performed By: #### C MP ####[facility] Qkrkvkarhr511907 [address] [place], [place] [address]Dr. Airam Tripahti Protein [Mass/Vol] 6.3 g/dL Critically low 6.4-8.2 [facility] Comment on above: Performed By: #### C MP ####[facility] Xdmmfkwigv4201[address] [place], [place] [address]DrKianna Tripathi Sodium [Moles/Vol] 133 mmol/L Critically low 136-145 [facility] Comment on above: Performed By: #### C MP ####[facility] Vakieygpnq3625[address] [place], [place] [address]Dr. Airam Tripathi Urea nitrogen [Mass/Vol] 29.0 mg/dL Critically high 7.0-18.0 [facility] Comment on above: Performed By: #### C MP ####[facility] Tqhlwrioof198507 [address] [place], [place] [address]Dr. Airam Tripathi Urea nitrogen/Creatinine [Mass ratio] 24.0 mg/mg Normal [facility] Comment on above: Performed By: #### C MP ####[facility] Pwsrojaxcu682[address] [place], [place] [address]DrKianna Tripathi OSMOLALITYon 03-12-2022 Osmolality [Osmolality] 285 mosm/kg Normal 275-295 [facility] Comment on above: Performed By: #### O SMO ####[facility] Kvjtlvmrpm947[address] [place], [place] [address]DrKianna Tripathi CBC AUTO DIFFon 03-10-2022 BASO # 0.0 103/ul Normal 0.0-0.1 [facility] Comment on above: Performed By: #### C BC ####[facility] Iekxubxzdi827507 [address] [place], [place] [address]DrKianna Tripathi Basophils/100 WBC (Bld) 0.3 % Normal 0.2-2.0 [facility] Comment on above: Performed By: #### C BC ####[facility] Jfxgubhxsr570[address] [place], [place] [address]DrKianna Tripathi EO # 0.2 103/ul Normal 0.0-0.7 [facility] Comment on above: Performed By: #### C BC ####[facility] Qjoqvymhsm9606 [place] [address]Dr. Airam Tripathi Eosinophils/100 WBC (Bld) 2.7 % Normal 0.9-7.0 [facility] Comment on above: Performed By: #### C BC ####[facility] Jalpecyyyj866[address] [place], [place] [address]Dr. Airam Tripathi Erythrocyte distribution width (RBC) [Ratio] 14.4 % Normal 11.0-15.0 [facility] Comment on above: Performed By: #### C BC ####[facility] Rvoevjpqkv675[address] [place], [place] [address]Dr. Airam Tripathi Hematocrit (Bld) [Volume fraction] 32.5 % Critically low 36.0-48.0 [facility] Comment on above: Performed By: #### C BC ####[facility] Kgbbmjzvhd853307 [address] [place], [place] [address]Dr. Airam Tripathi Hemoglobin (Bld) [Mass/Vol] 10.1 g/dL Critically low 12.0-16.0 [facility] Comment on above: Performed By: #### C BC ####[facility] Wtmxzlvswu642[address] [place], [place] [address]Dr. Airam Tripathi IG # 0.03 10e3/ul Normal 0.00-0.03 [facility] Comment on above: Performed By: #### C BC ####[facility] Gunldvmmbk733[address] [place], [place] [address]Dr. Airam Tripathi IG % 0.4 % Normal 0.0-0.5 [facility] Comment on above: Performed By: #### C BC ####[facility] Bzolysjlkx068207 [address] [place], [place] [address]Dr. Airam Tripathi LYMPH # 1.4 103/ul Normal 1.2-3.8 [facility] Comment on above: Performed By: #### C BC ####[facility] Tvvmcumctx049607 [address] [place], [place] [address]Dr. Airam Tripathi Lymphocytes/100 WBC (Bld) 19.4 % Critically low 20.5-60.0 [facility] Comment on above: Performed By: #### C BC ####[facility] Y[address]pojiryz[address] [place] [address]Dr. Airam Tripathi MANUAL DIFF REQ NO Normal [facility] Comment on above: Performed By: #### C BC ####[facility] Pwdxervowz2261 [place] [address]Dr. Airam Tripathi MCH (RBC) [Entitic mass] 30.6 pg Normal 26.7-34.0 [facility] Comment on above: Performed By: #### C BC ####[facility] Cnrtrhjmtk896[address] [place], [place] [address]Dr. Airam Tripathi MCHC (RBC) [Mass/Vol] 31.1 g/dL Normal 29.9-35.2 [facility] Comment on above: Performed By: #### C BC ####[facility] Zmoyyfczvv909[address] [place], [place] [address]Dr. Airam Tripathi MCV (RBC) [Entitic vol] 98.5 fL Normal 81.0-99.0 [facility] Comment on above: Performed By: #### C BC ####[facility] Quizcvfcqa11110[address] [place], [place] [address]Dr. Airam Tripathi MONO # 0.5 103/ul Normal 0.3-0.8 [facility] Comment on above: Performed By: #### C BC ####[facility] Ihiwkyoghy369[address] [place], [place] [address]Dr. Airam Tripathi Monocytes/100 WBC (Bld) 6.7 % Normal 1.7-12.0 [facility] Comment on above: Performed By: #### C BC ####[facility] Qjgcjaxeqh4024[address] [place], [place] [address]Dr. Airam Tripathi NEUT # 5.2 103/ul Normal 1.4-6.5 [facility] Comment on above: Performed By: #### C BC ####[facility] Aioeaomiaa705[address] [place], [place] [address]Dr. Airam Tripathi Neutrophils/100 WBC (Bld) 70.5 % Normal 43.0-75.0 [facility] Comment on above: Performed By: #### C BC ####[facility] [address]ef[address]qak[address] [place] [address]Dr. Airam Tripathi Platelet mean volume (Bld) [Entitic vol] 9.8 fL Normal 9.5-13.5 [facility] Comment on above: Performed By: #### C BC ####[facility] Epnplywzfr9940 [place] [address]DrKianna Tripathi PLT 277 103/ul Normal 150-450 [facility] Comment on above: Performed By: #### C BC ####[facility] Nkynghtdhg5601 [place] [address]DrKianna Tripathi RBC 3.30 106/ul Critically low 4.20-5.40 [facility] Comment on above: Performed By: #### C BC ####[facility] Aktkmgefvm259[address] [place], [place] [address]DrKianna Tripathi WBC 7.4 103/ul Normal 4.0-11.0 [facility] Comment on above: Performed By: #### C BC ####[facility] Rcxurrsubt995[address] [place], [place] [address]DrKianna Tripathi PROF 14(COMP METB)on 022 Albumin [Mass/Vol] 3.6 g/dL Normal 3.4-5.0 [facility] Comment on above: Performed By: #### C MP ####[facility] [address]jnzt[address] [place] [address]DrKianna Tripathi Albumin/Globulin [Mass ratio] 1.1 {ratio} Normal [facility] Comment on above: Performed By: #### C MP ####[facility] Wvbtnrjybs13[address] [place] [address]DrKianna Tripathi ALP [Catalytic activity/Vol] 112 U/L Normal 46-116 [facility] Comment on above: Performed By: #### C MP ####[facility] Kbxiohkmgm95[address] [place], [place] [address]DrKianna Tripathi ALT [Catalytic activity/Vol] 26 U/L Normal 14-59 [facility] Comment on above: Performed By: #### C MP ####[facility] Vdpqxawtxo22[address] [place] [address]Dr. Selenaneil Deuce Anion gap [Moles/Vol] 12.0 mmol/L Normal [facility] Comment on above: Performed By: #### C MP ####[facility] Jeedlupdao29[address] [place] [address]Dr. Airam Deuce AST [Catalytic activity/Vol] 25 U/L Normal 15-37 [facility] Comment on above: Performed By: #### C MP ####[facility] Bqanvtgood506[address] [place], [place] [address]Dr. Airam Tripathi Bilirubin [Mass/Vol] 0.4 mg/dL Normal 0.2-1.0 [facility] Comment on above: Performed By: #### C MP ####[facility] Jiifuvuljc300[address] [place], [place] [address]Dr. Airam Tripathi Calcium [Mass/Vol] 8.9 mg/dL Normal 8.5-10.1 [facility] Comment on above: Performed By: #### C MP ####[facility] Rstgnhbtqz370[address] [place], [place] [address]Dr. Airam Tripathi Chloride [Moles/Vol] 101 mmol/L Normal 98-107 [facility] Comment on above: Performed By: #### C MP ####[facility] Ytfhcuvzmx33300[address] [place], [place] [address]Dr. Airam Tripathi CO2 [Moles/Vol] 24.0 mmol/L Normal 21.0-32.0 [facility] Comment on above: Performed By: #### C MP ####[facility] Wlgzuqanpz259[address] [place], [place] [address]Dr. Airam Tripathi Creatinine [Mass/Vol] 1.51 mg/dL Critically high 0.55-1.02 [facility] Comment on above: Performed By: #### C MP ####[facility] Fpzchkvcwg511[address] [place], [place] [address]Dr. Airam Tripathi EGFR-AF ROMANIAN 43 mL/min/1.73m2 Critically low >=60 [facility] Comment on above: Performed By: #### C MP ####[facility] Uzruokvexn3[address] [place] [address]Dr. Selenaneil Deuce EGFR-NON AF ROMANIAN 35 mL/min/1.73m2 Critically low >=60 [facility] Comment on above: Performed By: #### C MP ####[facility] Hnhktkrutd9[address] [place] [address]Dr. Airam Tripathi Globulin (S) [Mass/Vol] 3.2 g/dL Normal [facility] Comment on above: Performed By: #### C MP ####[facility] Bgyarwrvki8219[address] [place], [place] [address]Dr. Airam Tripathi Glucose [Mass/Vol] 82 mg/dL Normal 74-106 [facility] Comment on above: Performed By: #### C MP ####[facility] Twvmlzwxvn5517[address] [place], [place] [address]Dr. Airam Tripathi Potassium [Moles/Vol] 4.0 mmol/L Normal 3.5-5.1 [facility] Comment on above: Performed By: #### C MP ####[facility] Tacnsheuwe599[address] [place], [place] [address]Dr. Airam Tripathi Protein [Mass/Vol] 6.8 g/dL Normal 6.4-8.2 [facility] Comment on above: Performed By: #### C MP ####[facility] Titljvxxze978[address] [place] [address]Dr. Airam Tripathi Sodium [Moles/Vol] 133 mmol/L Critically low 136-145 [facility] Comment on above: Performed By: #### C MP ####[facility] Jowmcjmeeg298[address] [place], [place] [address]Dr. Airam Tripathi Urea nitrogen [Mass/Vol] 37.0 mg/dL Critically high 7.0-18.0 [facility] Comment on above: Performed By: #### C MP ####[facility] Uhxoypzrfb46300[address] [place], [place] [address]Dr. Airam Tripathi Urea nitrogen/Creatinine [Mass ratio] 24.5 mg/mg Normal [facility] Comment on above: Performed By: #### C MP ####[facility] Utxaivrafz5215[address] [place], [place] [address]Dr. Airam Tripathi OSMOLALITYon 03-07-2022 Osmolality [Osmolality] 284 mosm/kg Normal 275-295 [facility] Comment on above: Performed By: #### O SMO ####[facility] Nkwrnvxlqt27750[address] [place], [place] [address]Dr. Airam Tripathi CBC AUTO DIFFon 03-04-2022 BASO # 0.0 103/ul Normal 0.0-0.1 [facility] Comment on above: Performed By: #### C BC ####[facility] Wljaksotml6617[address] [place], [place] [address]Dr. Airam Tripathi Basophils/100 WBC (Bld) 0.3 % Normal 0.2-2.0 [facility] Comment on above: Performed By: #### C BC ####[facility] Fzdrhyylwq680[address] [place], [place] [address]Dr. Airam Tripathi EO # 0.1 103/ul Normal 0.0-0.7 [facility] Comment on above: Performed By: #### C BC ####[facility] Udjsrhylvf104[address] [place], [place] [address]Dr. Airam Tripathi Eosinophils/100 WBC (Bld) 2.0 % Normal 0.9-7.0 [facility] Comment on above: Performed By: #### C BC ####[facility] Ojdryfdgpu563[address] [place], [place] [address]Dr. Airam Tripathi Erythrocyte distribution width (RBC) [Ratio] 14.5 % Normal 11.0-15.0 [facility] Comment on above: Performed By: #### C BC ####[facility] Ugzcwuhutm213307 [address] [place], [place] [address]Dr. Airam Tripathi Hematocrit (Bld) [Volume fraction] 35.4 % Critically low 36.0-48.0 [facility] Comment on above: Performed By: #### C BC ####[facility] Jscoaiomlh264[address] [place], [place] [id number]. Selenaneil Tripathi Hemoglobin (Bld) [Mass/Vol] 11.0 g/dL Critically low 12.0-16.0 [facility] Comment on above: Performed By: #### C BC ####[facility] Wsbexfrrpn9[address] [place] [address]Dr. Selenaneil Tripathi IG # 0.03 10e3/ul Normal 0.00-0.03 [facility] Comment on above: Performed By: #### C BC ####[facility] Rujpzibydx8236 [place] [address]Dr. Selenaneil Tripathi IG % 0.4 % Normal 0.0-0.5 [facility] Comment on above: Performed By: #### C BC ####[facility] Symtukjkwb598[address] [place], [place] [address]DrKianna Tripathi LYMPH # 1.7 103/ul Normal 1.2-3.8 [facility] Comment on above: Performed By: #### C BC ####[facility] Hrpwofiemj027[address] [place], [place] [address]Dr. Airam Tripathi Lymphocytes/100 WBC (Bld) 23.8 % Normal 20.5-60.0 [facility] Comment on above: Performed By: #### C BC ####[facility] Ixebsmnukv7[address] [place] [address]DrKianna Selenaneil Tripathi MANUAL DIFF REQ NO Normal [facility] Comment on above: Performed By: #### C BC ####[facility] Tuzaowqttj169[address] [place], [place] [address]DrKianna Airam Deuce MCH (RBC) [Entitic mass] 30.0 pg Normal 26.7-34.0 [facility] Comment on above: Performed By: #### C BC ####[facility] Gfnkfqvull809[address] [place], [place] [address]DrKianna Tripathi MCHC (RBC) [Mass/Vol] 31.1 g/dL Normal 29.9-35.2 [facility] Comment on above: Performed By: #### C BC ####[facility] Pbpegqxzzm955507 [address] [place], [place] [address]Dr. Airam Tripathi MCV (RBC) [Entitic vol] 96.5 fL Normal 81.0-99.0 [facility] Comment on above: Performed By: #### C BC ####[facility] Tulymmftqu323[address] [place], [place] [address]Dr. Airam Tripathi MONO # 0.5 103/ul Normal 0.3-0.8 [facility] Comment on above: Performed By: #### C BC ####[facility] Axhwqlcdsq205307 [address] [place], [place] [address]Dr. Airam Deuce Monocytes/100 WBC (Bld) 6.6 % Normal 1.7-12.0 [facility] Comment on above: Performed By: #### C BC ####[facility] Kexsrestyi205407 [address] [place], [place] [address]Dr. Airam Tripathi NEUT # 4.7 103/ul Normal 1.4-6.5 [facility] Comment on above: Performed By: #### C BC ####[facility] Toyebxusya331807 [address] [place], [place] [address]Dr. Airam Tripathi Neutrophils/100 WBC (Bld) 66.9 % Normal 43.0-75.0 [facility] Comment on above: Performed By: #### C BC ####[facility] Vnegmqbigh824707 [address] [place], [place] [address]Dr. Airam Deuce Platelet mean volume (Bld) [Entitic vol] 10.2 fL Normal 9.5-13.5 [facility] Comment on above: Performed By: #### C BC ####[facility] Ncunajjmeh238607 [address] [place], [place] [address]Dr. Airam Deuce PLT 270 103/ul Normal 150-450 [facility] Comment on above: Performed By: #### C BC ####[facility] Xqlykxfahx185[address] [place], [place] [address]DrKianna Waltersneil Deuce RBC 3.67 106/ul Critically low 4.20-5.40 [facility] Comment on above: Performed By: #### C BC ####[facility] Przgooxqgc12110[address] [place], [place] [address]Dr. Airam Tripathi WBC 7.0 103/ul Normal 4.0-11.0 [facility] Comment on above: Performed By: #### C BC ####[facility] Fhwugvndjz555[address] [place], [place] [address]DrKianna Tripathi PROF 14(COMP METB)on 022 Albumin [Mass/Vol] 3.3 g/dL Critically low 3.4-5.0 [facility] Comment on above: Performed By: #### C MP ####[facility] Idohvoymmy267207 [address] [place], [place] [address]DrKianna Tripathi Albumin/Globulin [Mass ratio] 1.0 {ratio} Normal [facility] Comment on above: Performed By: #### C MP ####[facility] Kljpvliioj654707 [address] [place], [place] [address]Dr. Airma Tripathi ALP [Catalytic activity/Vol] 107 U/L Normal 46-116 [facility] Comment on above: Performed By: #### C MP ####[facility] Jyhbiyotuo339607 [address] [place], [place] [address]Dr. Airam Tripathi ALT [Catalytic activity/Vol] 23 U/L Normal 14-59 [facility] Comment on above: Performed By: #### C MP ####[facility] Fejrpdjycx927[address] [place], [place] [address]DrKianna Tripathi Anion gap [Moles/Vol] 13.0 mmol/L Normal [facility] Comment on above: Performed By: #### C MP ####[facility] Vdhhzyjooh931907 [address] [place], [place] [address]Dr. Airam Tripathi AST [Catalytic activity/Vol] 30 U/L Normal 15-37 [facility] Comment on above: Performed By: #### C MP ####[facility] Frprvldudr195407 [address] [place], [place] [address]Dr. Airam Tripathi Bilirubin [Mass/Vol] 0.2 mg/dL Normal 0.2-1.0 [facility] Comment on above: Performed By: #### C MP ####[facility] Rfdfzlhnju309007 [address] [place], [place] [address]Dr. Airam Trpiathi Calcium [Mass/Vol] 8.8 mg/dL Normal 8.5-10.1 [facility] Comment on above: Performed By: #### C MP ####[facility] L[address]hebkpwx2365 [place] [address]Dr. Airam Tripathi Chloride [Moles/Vol] 103 mmol/L Normal 98-107 [facility] Comment on above: Performed By: #### C MP ####[facility] Hxnoazrvvj1432 [place] [address]Dr. Airam Tripathi CO2 [Moles/Vol] 24.9 mmol/L Normal 21.0-32.0 [facility] Comment on above: Performed By: #### C MP ####[facility] Xjuaanpgee193407 [address] [place], [place] [address]Dr. Airam Tripathi Creatinine [Mass/Vol] 1.06 mg/dL Critically high 0.55-1.02 [facility] Comment on above: Performed By: #### C MP ####[facility] Zfdexqvzsj362507 [address] [place], [place] [address]Dr. Airam Tripathi EGFR-AF ROMANIAN >60 Normal >=60 [facility] Comment on above: Performed By: #### C MP ####[facility] Blneazfjet879[address] [place], [place] [address]Dr. Airam Tripathi EGFR-NON AF ROMANIAN 53 mL/min/1.73m2 Critically low >=60 [facility] Comment on above: Performed By: #### C MP ####[facility] Zitwkazshd910907 [address] [place], [place] [address]Dr. Airam Tripathi Globulin (S) [Mass/Vol] 3.2 g/dL Normal [facility] Comment on above: Performed By: #### C MP ####[facility] Pyceskfgpk927407 [address] [place], [place] [address]Dr. Airam Deuce Glucose [Mass/Vol] 91 mg/dL Normal 74-106 [facility] Comment on above: Performed By: #### C MP ####[facility] Figklahxjy772[address] [place], [place] [address]Dr. Selenaneil Deuce Potassium [Moles/Vol] 3.9 mmol/L Normal 3.5-5.1 [facility] Comment on above: Performed By: #### C MP ####[facility] Ywtsmsdlbi5218[address] [place], [place] [address]Dr. Airam Tripathi Protein [Mass/Vol] 6.5 g/dL Normal 6.4-8.2 [facility] Comment on above: Performed By: #### C MP ####[facility] Ikyrvctojm5217[address] [place], [place] [address]Dr. Selenaneil Deuce Sodium [Moles/Vol] 137 mmol/L Normal 136-145 [facility] Comment on above: Performed By: #### C MP ####[facility] Jxjuewruap761407 [address] [place], [place] [address]Dr. Selenaneil Deuce Urea nitrogen [Mass/Vol] 27.0 mg/dL Critically high 7.0-18.0 [facility] Comment on above: Performed By: #### C MP ####[facility] Sbgpegxxgh745[address] [place], [place] [address]Dr. Selenaneil Deuce Urea nitrogen/Creatinine [Mass ratio] 25.5 mg/mg Normal [facility] Comment on above: Performed By: #### C MP ####[facility] Dhizgvqale723[address] [place], [place] [address]Dr. Airam Deuce OSMOLALITYon 03-03-2022 Osmolality [Osmolality] 383 mosm/kg Invalid Interpretation Code [id number] [facility] Comment on above: Result Comment: Ve rified by repeat analysis Performed By: #### O SMO ####[facility] Tpnoevpocp95[address] [place], [place] [address]Dr. Airam Tripathi CBC AUTO DIFFon 02-22-2022 BASO # 0.0 103/ul Normal 0.0-0.1 [facility] Comment on above: Performed By: #### C BC ####[facility] Yzbgzcjeue606[address] [place], [place] [address]Dr. Airam Deuce Basophils/100 WBC (Bld) 0.4 % Normal 0.2-2.0 [facility] Comment on above: Performed By: #### C BC ####[facility] Argojnodac[address] [place] [address]Dr. Airam Tripathi EO # 0.2 103/ul Normal 0.0-0.7 [facility] Comment on above: Performed By: #### C BC ####[facility] Mrdqoqbojn164907 [address] [place], [place] [address]Dr. Airam Tripathi Eosinophils/100 WBC (Bld) 3.9 % Normal 0.9-7.0 [facility] Comment on above: Performed By: #### C BC ####[facility] Jrugeoemkk13300[address] [place], [place] [address]Dr. Airam Tripathi Erythrocyte distribution width (RBC) [Ratio] 13.9 % Normal 11.0-15.0 [facility] Comment on above: Performed By: #### C BC ####[facility] Mefzgueyub728[address] [place], [place] [address]Dr. Airam Tripathi Hematocrit (Bld) [Volume fraction] 32.7 % Critically low 36.0-48.0 [facility] Comment on above: Performed By: #### C BC ####[facility] Wdyutewvuy29050[address] [place], [place] [address]Dr. Airam Tripathi Hemoglobin (Bld) [Mass/Vol] 10.7 g/dL Critically low 12.0-16.0 [facility] Comment on above: Performed By: #### C BC ####[facility] Uqikvswgll136[address] [place], [place] [address]Dr. Airam Tripathi IG # 0.02 10e3/ul Normal 0.00-0.03 [facility] Comment on above: Performed By: #### C BC ####[facility] Xascyegcfx113[address] [place], [place] [address]Dr. Airam Tripathi IG % 0.4 % Normal 0.0-0.5 [facility] Comment on above: Performed By: #### C BC ####[facility] Vncnxgxhme685[address] [place], [place] [address]Dr. Airam Tripathi LYMPH # 1.2 103/ul Normal 1.2-3.8 [facility] Comment on above: Performed By: #### C BC ####[facility] Ngufcjyavr2666 [place] [address]Dr. Airam Deuce Lymphocytes/100 WBC (Bld) 25.0 % Normal 20.5-60.0 [facility] Comment on above: Performed By: #### C BC ####[facility] Qvlymhpgiz9672 [place] [address]Dr. Selenaneil Tripathi MANUAL DIFF REQ NO Normal [facility] Comment on above: Performed By: #### C BC ####[facility] Rkcvxxjodi4313 [place] [address]Dr. Airam Deuce MCH (RBC) [Entitic mass] 30.7 pg Normal 26.7-34.0 [facility] Comment on above: Performed By: #### C BC ####[facility] Ipssvxncdr005[address] [place], [place] [address]Dr. Selenaneil Tripathi MCHC (RBC) [Mass/Vol] 32.7 g/dL Normal 29.9-35.2 [facility] Comment on above: Performed By: #### C BC ####[facility] Qcbkbjcupk595[address] [place], [place] [address]Dr. Selenaneil Tripathi MCV (RBC) [Entitic vol] 93.7 fL Normal 81.0-99.0 [facility] Comment on above: Performed By: #### C BC ####[facility] Oeilqqsolf3339[address] [place], [place] [address]Dr. Airam Tripathi MONO # 0.4 103/ul Normal 0.3-0.8 [facility] Comment on above: Performed By: #### C BC ####[facility] Wwhdnyddfp44110[address] [place], [place] [address]Dr. Selenaneil Tripathi Monocytes/100 WBC (Bld) 7.5 % Normal 1.7-12.0 [facility] Comment on above: Performed By: #### C BC ####[facility] Sskyhzfxde51990[address] [place], [place] [address]Dr. Airam Tripathi NEUT # 3.1 103/ul Normal 1.4-6.5 [facility] Comment on above: Performed By: #### C BC ####[facility] Xjfchidluk5460 [place] [address]Dr. Airam Tripathi Neutrophils/100 WBC (Bld) 62.8 % Normal 43.0-75.0 [facility] Comment on above: Performed By: #### C BC ####[facility] Pmaikseebq9206 [place] [address]Dr. Airam Tripathi Platelet mean volume (Bld) [Entitic vol] 9.5 fL Normal 9.5-13.5 [facility] Comment on above: Performed By: #### C BC ####[facility] Rzetjwoouv9807 [place] [address]Dr. Airam Tripathi PLT 250 103/ul Normal 150-450 [facility] Comment on above: Performed By: #### C BC ####[facility] Qfogfrbuih855[address] [place], [place] [address]Dr. Airam Tripathi RBC 3.49 106/ul Critically low 4.20-5.40 [facility] Comment on above: Performed By: #### C BC ####[facility] Ubmocwujla635[address] [place], [place] [address]Dr. Airam Tripathi WBC 4.9 103/ul Normal 4.0-11.0 [facility] Comment on above: Performed By: #### C BC ####[facility] Exiegjixyb95[address] [place], [place] [address]Dr. Airam Tripathi PROF 14(COMP METB)on 022 Albumin [Mass/Vol] 3.3 g/dL Critically low 3.4-5.0 [facility] Comment on above: Performed By: #### C MP ####[facility] Ygmqmliorb1799 [place] [address]Dr. Airam Tripathi Albumin/Globulin [Mass ratio] 1.0 {ratio} Normal [facility] Comment on above: Performed By: #### C MP ####[facility] Rpdjewewyq080[address] [place], [place] [address]Dr. Selenaneil Deuce ALP [Catalytic activity/Vol] 127 U/L Critically high 46-116 [facility] Comment on above: Performed By: #### C MP ####[facility] Wsftfrscoq5419 [place] [id number]. Airam Tripathi ALT [Catalytic activity/Vol] 22 U/L Normal 14-59 [facility] Comment on above: Performed By: #### C MP ####[facility] Awiupouzqm088407 [address] [place], [place] [address]Dr. Airam Tripathi Anion gap [Moles/Vol] 11.9 mmol/L Normal [facility] Comment on above: Performed By: #### C MP ####[facility] Ylrffgjjtz868[address] [place], [place] [address]Dr. Airam Tripathi AST [Catalytic activity/Vol] 21 U/L Normal 15-37 [facility] Comment on above: Performed By: #### C MP ####[facility] Cloefelpqd823[address] [place], [place] [address]Dr. Airam Tripathi Bilirubin [Mass/Vol] 0.3 mg/dL Normal 0.2-1.0 [facility] Comment on above: Performed By: #### C MP ####[facility] Rwkxsfcqhn380[address] [place], [place] [address]Dr. Airam Tripathi Calcium [Mass/Vol] 8.6 mg/dL Normal 8.5-10.1 [facility] Comment on above: Performed By: #### C MP ####[facility] Ozbpohowmh014[address] [place], [place] [address]Dr. Airam Tripathi Chloride [Moles/Vol] 105 mmol/L Normal 98-107 [facility] Comment on above: Performed By: #### C MP ####[facility] Rgkvuuiyhl375[address] [place], [place] [address]Dr. Airam Tripathi CO2 [Moles/Vol] 23.6 mmol/L Normal 21.0-32.0 [facility] Comment on above: Performed By: #### C MP ####[facility] Gvzvnnsbxu594[address] [place], [place] [address]Dr. Airam Tripathi Creatinine [Mass/Vol] 1.29 mg/dL Critically high 0.55-1.02 [facility] Comment on above: Performed By: #### C MP ####[facility] Knjfmrgvkd340[address] [place], [place] [address]Dr. Selenaneil Deuce EGFR-AF ROMANIAN 51 mL/min/1.73m2 Critically low >=60 [facility] Comment on above: Performed By: #### C MP ####[facility] D[address]cwkgpoy[address] [place] [address]Dr. Selenaneil Deuce EGFR-NON AF ROMANIAN 42 mL/min/1.73m2 Critically low >=60 [facility] Comment on above: Performed By: #### C MP ####[facility] Heavpzfcry[address] [place] [address]Dr. Airam Tripathi Globulin (S) [Mass/Vol] 3.2 g/dL Normal [facility] Comment on above: Performed By: #### C MP ####[facility] Axitqwgbbv2096 [place] [address]Dr. Airam Tripathi Glucose [Mass/Vol] 94 mg/dL Normal 74-106 [facility] Comment on above: Performed By: #### C MP ####[facility] Yswcndjouk7619 [place] [address]Dr. Airam Tripathi Potassium [Moles/Vol] 3.5 mmol/L Normal 3.5-5.1 [facility] Comment on above: Performed By: #### C MP ####[facility] Ubrujhpicv844[address] [place], [place] [address]Dr. Airam Tripathi Protein [Mass/Vol] 6.5 g/dL Normal 6.4-8.2 [facility] Comment on above: Performed By: #### C MP ####[facility] Gmytelbmgw8[address] [place] [address]Dr. Airam Tripathi Sodium [Moles/Vol] 137 mmol/L Normal 136-145 [facility] Comment on above: Performed By: #### C MP ####[facility] Krelczosvr239[address] [place], [place] [address]Dr. Airam Tripathi Urea nitrogen [Mass/Vol] 37.0 mg/dL Critically high 7.0-18.0 [facility] Comment on above: Performed By: #### C MP ####[facility] Tlxdpicgmo669[address] [place], [place] [address]Dr. Airam Tripathi Urea nitrogen/Creatinine [Mass ratio] 28.7 mg/mg Normal [facility] Comment on above: Performed By: #### C MP ####[facility] Cpleszrgdu[address] [place], [place] [address]Dr. Airam Tripathi OSMOLALITYon 02-20-2022 Osmolality [Osmolality] 283 mosm/kg Normal 275-295 [facility] Comment on above: Performed By: #### O SMO ####[facility] Tzeustroyb98[address] [place], [place] [address]Dr. Airam Tripathi CBC AUTO DIFFon 02-17-2022 BASO # 0.0 103/ul Normal 0.0-0.1 [facility] Comment on above: Performed By: #### C BC ####[facility] Uhmrchpbkp[address] [place], [place] [address]Dr. Airam Tripathi Basophils/100 WBC (Bld) 0.3 % Normal 0.2-2.0 [facility] Comment on above: Performed By: #### C BC ####[facility] Navwmmcrdf369207 [address] [place], [place] [address]Dr. Airam Tripathi EO # 0.1 103/ul Normal 0.0-0.7 [facility] Comment on above: Performed By: #### C BC ####[facility] Qfrxtupnad479[address] [place], [place] [address]Dr. Airam Tripathi Eosinophils/100 WBC (Bld) 1.6 % Normal 0.9-7.0 [facility] Comment on above: Performed By: #### C BC ####[facility] Mbjqdboscm616[address] [place], [place] [address]Dr. Airam Tripathi Erythrocyte distribution width (RBC) [Ratio] 13.4 % Normal 11.0-15.0 [facility] Comment on above: Performed By: #### C BC ####[facility] Ntxecnucxm244[address] [place], [place] [address]Dr. Airam Tripathi Hematocrit (Bld) [Volume fraction] 31.4 % Critically low 36.0-48.0 [facility] Comment on above: Performed By: #### C BC ####[facility] Mtr[address]xxfqo9[address] [place] [id number]. Airam Tripathi Hemoglobin (Bld) [Mass/Vol] 10.0 g/dL Critically low 12.0-16.0 [facility] Comment on above: Performed By: #### C BC ####[facility] Qpihbsatkw2654 [place] [phone]. Airam Tripathi IG # 0.03 10e3/ul Normal 0.00-0.03 [facility] Comment on above: Performed By: #### C BC ####[facility] Fgjdothled[address] [place] [address]Dr. Airam Tripathi IG % 0.4 % Normal 0.0-0.5 [facility] Comment on above: Performed By: #### C BC ####[facility] Uhkyhpqdkl5720 [place] [address]Dr. Airam Tripathi LYMPH # 1.6 103/ul Normal 1.2-3.8 [facility] Comment on above: Performed By: #### C BC ####[facility] [address]cbqeej[address] [place] [address]Dr. Airam Tripathi Lymphocytes/100 WBC (Bld) 24.5 % Normal 20.5-60.0 [facility] Comment on above: Performed By: #### C BC ####[facility] Cbjcxrvgyf8[address] [place] [address]Dr. Airam Tripathi MANUAL DIFF REQ NO Normal [facility] Comment on above: Performed By: #### C BC ####[facility] Wvaidgabzz3607 [place] [address]Dr. Airam Tripathi MCH (RBC) [Entitic mass] 30.2 pg Normal 26.7-34.0 [facility] Comment on above: Performed By: #### C BC ####[facility] Hhxvgxqyxd2271 [place] [address]Dr. Airam Tripathi MCHC (RBC) [Mass/Vol] 31.8 g/dL Normal 29.9-35.2 [facility] Comment on above: Performed By: #### C BC ####[facility] Omjrzqtday6344 [place] [id number]. Airam Tripathi MCV (RBC) [Entitic vol] 94.9 fL Normal 81.0-99.0 [facility] Comment on above: Performed By: #### C BC ####[facility] Dprqzjurrn5198 [place] [phone]. Airam Tripathi MONO # 0.4 103/ul Normal 0.3-0.8 [facility] Comment on above: Performed By: #### C BC ####[facility] Tpsqgidchp2034 [place] [phone]. Airam Deuce Monocytes/100 WBC (Bld) 5.8 % Normal 1.7-12.0 [facility] Comment on above: Performed By: #### C BC ####[facility] Mbtibnwasx435507 [address] [place], [place] [address]Dr. Airam Tripathi NEUT # 4.5 103/ul Normal 1.4-6.5 [facility] Comment on above: Performed By: #### C BC ####[facility] Ubdmlnjofv144307 [address] [place], [place] [address]Dr. Airam Tripathi Neutrophils/100 WBC (Bld) 67.4 % Normal 43.0-75.0 [facility] Comment on above: Performed By: #### C BC ####[facility] Tqelqjqpuf239[address] [place], [place] [address]Dr. Airam Deuce Platelet mean volume (Bld) [Entitic vol] 9.6 fL Normal 9.5-13.5 [facility] Comment on above: Performed By: #### C BC ####[facility] Gmlepglwjz[address] [place], [place] [address]Dr. Airam Deuce PLT 251 103/ul Normal 150-450 [facility] Comment on above: Performed By: #### C BC ####[facility] Bizwzafemy576[address] [place], [place] [address]Dr. Airam Deuce RBC 3.31 106/ul Critically low 4.20-5.40 [facility] Comment on above: Performed By: #### C BC ####[facility] Iaujvkafyx040307 [address] [place], [place] [address]Dr. Airam Tripathi WBC 6.7 103/ul Normal 4.0-11.0 [facility] Comment on above: Performed By: #### C BC ####[facility] Cyqqqxsjao2933 [place] [address]Dr. Airam Tripathi PROF 14(COMP METB)on 022 Albumin [Mass/Vol] 3.5 g/dL Normal 3.4-5.0 [facility] Comment on above: Performed By: #### C MP ####[facility] [address]un[address] [place] [address]Dr. Airam Tripathi Albumin/Globulin [Mass ratio] 1.2 {ratio} Normal [facility] Comment on above: Performed By: #### C MP ####[facility] Agghpmihdg1870 [place] [address]Dr. Airam Tripathi ALP [Catalytic activity/Vol] 130 U/L Critically high 46-116 [facility] Comment on above: Performed By: #### C MP ####[facility] Obzeibptaf025307 [address] [place], [place] [address]Dr. Airam Tripathi ALT [Catalytic activity/Vol] 18 U/L Normal 14-59 [facility] Comment on above: Performed By: #### C MP ####[facility] Gebexewird4027[address] [place], [place] [address]Dr. Airam Tripathi Anion gap [Moles/Vol] 14.0 mmol/L Normal [facility] Comment on above: Performed By: #### C MP ####[facility] Chowbnjesa328607 [address] [place], [place] [address]Dr. Airam Tripathi AST [Catalytic activity/Vol] 20 U/L Normal 15-37 [facility] Comment on above: Performed By: #### C MP ####[facility] Gofagqruvc543[address] [place], [place] [address]Dr. Airam Tripathi Bilirubin [Mass/Vol] 0.3 mg/dL Normal 0.2-1.0 [facility] Comment on above: Performed By: #### C MP ####[facility] Rtywfdyqcp237607 [address] [place], [place] [address]Dr. Airam Tripathi Calcium [Mass/Vol] 8.5 mg/dL Normal 8.5-10.1 [facility] Comment on above: Performed By: #### C MP ####[facility] Vynktbewhh720[address] [place], [place] [address]Dr. Airam Deuce Chloride [Moles/Vol] 100 mmol/L Normal 98-107 [facility] Comment on above: Performed By: #### C MP ####[facility] Tesbnuikox159107 [address] [place], [place] [address]Dr. Airam Deuce CO2 [Moles/Vol] 22.7 mmol/L Normal 21.0-32.0 [facility] Comment on above: Performed By: #### C MP ####[facility] Phrbtzjfgr518707 [address] [place], [place] [address]Dr. Airam Deuce Creatinine [Mass/Vol] 1.28 mg/dL Critically high 0.55-1.02 [facility] Comment on above: Performed By: #### C MP ####[facility] Qrzrbttgbn717[address] [place], [place] [address]Dr. Airam Deuce EGFR-AF ROMANIAN 52 mL/min/1.73m2 Critically low >=60 [facility] Comment on above: Performed By: #### C MP ####[facility] Dhjyipunqm4916[address] [place], [place] [address]Dr. Airam Deuce EGFR-NON AF ROMANIAN 43 mL/min/1.73m2 Critically low >=60 [facility] Comment on above: Performed By: #### C MP ####[facility] Yvqppqanyr388607 [address] [place], [place] [address]Dr. Airam Deuce Globulin (S) [Mass/Vol] 2.9 g/dL Normal [facility] Comment on above: Performed By: #### C MP ####[facility] Roakmtmtcf557[address] [place], [place] [address]Dr. Selenaneil Deuce Glucose [Mass/Vol] 93 mg/dL Normal 74-106 [facility] Comment on above: Performed By: #### C MP ####[facility] Qmkcwvelrp726407 [address] [place], [place] [address]Dr. Airam Tripathi Potassium [Moles/Vol] 3.7 mmol/L Normal 3.5-5.1 [facility] Comment on above: Performed By: #### C MP ####[facility] Ouawfskghk38[address] [place] [address]Dr. Airam Tripathi Protein [Mass/Vol] 6.4 g/dL Normal 6.4-8.2 [facility] Comment on above: Performed By: #### C MP ####[facility] Rysebghzmr076[address] [place], [place] [address]Dr. Airam Tripathi Sodium [Moles/Vol] 133 mmol/L Critically low 136-145 [facility] Comment on above: Performed By: #### C MP ####[facility] Apzxopdyiy920[address] [place], [place] [address]Dr. Airam Tripathi Urea nitrogen [Mass/Vol] 44.0 mg/dL Critically high 7.0-18.0 [facility] Comment on above: Performed By: #### C MP ####[facility] Umubargzau980207 [address] [place], [place] [address]Dr. Airam Tripathi Urea nitrogen/Creatinine [Mass ratio] 34.4 mg/mg Normal [facility] Comment on above: Performed By: #### C MP ####[facility] Iqszfyliwl446[address] [place], [place] [address]Dr. Airam Tripathi OSMOLALITYon 02-10-2022 Osmolality [Osmolality] 288 mosm/kg Normal 275-295 [facility] Comment on above: Performed By: #### O SMO ####[facility] Vwkvaxydyi549[address] [place], [place] [address]Dr. Airam Tripathi CBC AUTO DIFFon 02-08-2022 BASO # 0.0 103/ul Normal 0.0-0.1 [facility] Comment on above: Performed By: #### C BC ####[facility] Abwzuxpkfn207[address] [place], [place] [address]Dr. Airam Tripathi Basophils/100 WBC (Bld) 0.3 % Normal 0.2-2.0 [facility] Comment on above: Performed By: #### C BC ####[facility] Ntiwaczohd1855 [place] [address]Dr. Airam Tripathi EO # 0.2 103/ul Normal 0.0-0.7 [facility] Comment on above: Performed By: #### C BC ####[facility] Lzxasrvmbr8660 [place] [address]Dr. Airam Tripathi Eosinophils/100 WBC (Bld) 2.1 % Normal 0.9-7.0 [facility] Comment on above: Performed By: #### C BC ####[facility] Enajxzisxh64[address] [place], [place] [address]Dr. Airam Tripathi Erythrocyte distribution width (RBC) [Ratio] 13.4 % Normal 11.0-15.0 [facility] Comment on above: Performed By: #### C BC ####[facility] Vieshqxbmb696[address] [place], [place] [address]Dr. Airam Tripathi Hematocrit (Bld) [Volume fraction] 35.1 % Critically low 36.0-48.0 [facility] Comment on above: Performed By: #### C BC ####[facility] Qkjelkpruz378907 [address] [place], [place] [address]Dr. Airam Tripathi Hemoglobin (Bld) [Mass/Vol] 10.9 g/dL Critically low 12.0-16.0 [facility] Comment on above: Performed By: #### C BC ####[facility] Clzqjzcjor712[address] [place], [place] [address]Dr. Airam Tripathi IG # 0.03 10e3/ul Normal 0.00-0.03 [facility] Comment on above: Performed By: #### C BC ####[facility] Twgymkudua05[address] [place] [address]Dr. Airam Tripathi IG % 0.3 % Normal 0.0-0.5 [facility] Comment on above: Performed By: #### C BC ####[facility] Ihxsiwzrwm763[address] [place], [place] [address]Dr. Airam Tripathi LYMPH # 1.3 103/ul Normal 1.2-3.8 [facility] Comment on above: Performed By: #### C BC ####[facility] Telkybfyit5999 [place] [id number]. Airam Tripathi Lymphocytes/100 WBC (Bld) 13.1 % Critically low 20.5-60.0 [facility] Comment on above: Performed By: #### C BC ####[facility] Unxfbzpybh9639 [place] [address]Dr. Airam Deuce MANUAL DIFF REQ NO Normal [facility] Comment on above: Performed By: #### C BC ####[facility] Dtbmkubsuq2911 [place] [address]Dr. Airam Deuce MCH (RBC) [Entitic mass] 30.4 pg Normal 26.7-34.0 [facility] Comment on above: Performed By: #### C BC ####[facility] Hnpvadnkoy204[address] [place], [place] [address]Dr. Aiarm Deuce MCHC (RBC) [Mass/Vol] 31.1 g/dL Normal 29.9-35.2 [facility] Comment on above: Performed By: #### C BC ####[facility] Mrykinsdpf0713 [place] [address]Dr. Selenaneil Tripathi MCV (RBC) [Entitic vol] 98.0 fL Normal 81.0-99.0 [facility] Comment on above: Performed By: #### C BC ####[facility] Kilrivvaug998[address] [place], [place] [address]Dr. Airam Tripathi MONO # 0.5 103/ul Normal 0.3-0.8 [facility] Comment on above: Performed By: #### C BC ####[facility] Byknbgicbo6590 [place] [address]Dr. Selenaneil Tripathi Monocytes/100 WBC (Bld) 4.7 % Normal 1.7-12.0 [facility] Comment on above: Performed By: #### C BC ####[facility] Rsbyyfxkob928207 [address] [place], [place] [address]Dr. Airam Tripathi NEUT # 7.7 103/ul Critically high 1.4-6.5 [facility] Comment on above: Performed By: #### C BC ####[facility] Ishnsneydq4594 [place] [address]Dr. Airam Deuce Neutrophils/100 WBC (Bld) 79.5 % Critically high 43.0-75.0 [facility] Comment on above: Performed By: #### C BC ####[facility] Evhypfgqac4324 [place] [address]Dr. Airam Tripathi Platelet mean volume (Bld) [Entitic vol] 9.6 fL Normal 9.5-13.5 [facility] Comment on above: Performed By: #### C BC ####[facility] Landgacivz3636 [place] [address]Dr. Airam Tripathi PLT 268 103/ul Normal 150-450 [facility] Comment on above: Performed By: #### C BC ####[facility] Jdqoqkewif9675 [place] [address]Dr. Airam Tripathi RBC 3.58 106/ul Critically low 4.20-5.40 [facility] Comment on above: Performed By: #### C BC ####[facility] Gbmrinhsdl5015 [place] [address]Dr. Selenaneil Tripathi WBC 9.7 103/ul Normal 4.0-11.0 [facility] Comment on above: Performed By: #### C BC ####[facility] Udkooqnwgy55[address] [place], [place] [address]Dr. Airam Tripathi PROF 14(COMP METB)on 022 Albumin [Mass/Vol] 3.6 g/dL Normal 3.4-5.0 [facility] Comment on above: Performed By: #### C MP ####[facility] Pppqjmzvuu3205 [place] [address]Dr. Airam Tripathi Albumin/Globulin [Mass ratio] 1.1 {ratio} Normal [facility] Comment on above: Performed By: #### C MP ####[facility] Utworlalkq1536 [place] [address]Dr. Selenaneil Tripathi ALP [Catalytic activity/Vol] 131 U/L Critically high 46-116 [facility] Comment on above: Performed By: #### C MP ####[facility] Scsgblsbei2418 [place] [address]Dr. Airam Tripathi ALT [Catalytic activity/Vol] 22 U/L Normal 14-59 [facility] Comment on above: Performed By: #### C MP ####[facility] Wrsrowmxsx1291 [place] [address]Dr. Airam Tripathi Anion gap [Moles/Vol] 13.3 mmol/L Normal [facility] Comment on above: Performed By: #### C MP ####[facility] Mtauqbjzbp37350[address] [place], [place] [address]Dr. Airam Tripathi AST [Catalytic activity/Vol] 23 U/L Normal 15-37 [facility] Comment on above: Performed By: #### C MP ####[facility] Bmpsislkam867[address] [place], [place] [address]Dr. Airam Tripathi Bilirubin [Mass/Vol] 0.3 mg/dL Normal 0.2-1.0 [facility] Comment on above: Performed By: #### C MP ####[facility] Rklqfudyxi335[address] [place], [place] [address]Dr. Airam Tripathi Calcium [Mass/Vol] 8.7 mg/dL Normal 8.5-10.1 [facility] Comment on above: Performed By: #### C MP ####[facility] Systzmmquo50220[address] [place], [place] [address]Dr. Airam Tripathi Chloride [Moles/Vol] 104 mmol/L Normal 98-107 [facility] Comment on above: Performed By: #### C MP ####[facility] Xxiejjbvtu444[address] [place], [place] [address]Dr. Airam Tripathi CO2 [Moles/Vol] 22.0 mmol/L Normal 21.0-32.0 [facility] Comment on above: Performed By: #### C MP ####[facility] Hxfuidyuka484[address] [place], [place] [address]Dr. Airam Tripathi Creatinine [Mass/Vol] 1.20 mg/dL Critically high 0.55-1.02 [facility] Comment on above: Performed By: #### C MP ####[facility] Rxgfdykgnv7344 [place] [address]Dr. Airam Tripathi EGFR-AF ROMANIAN 56 mL/min/1.73m2 Critically low >=60 [facility] Comment on above: Performed By: #### C MP ####[facility] Oflointify7140 [place] [address]Dr. Airam Tripathi EGFR-NON AF ROMANIAN 46 mL/min/1.73m2 Critically low >=60 [facility] Comment on above: Performed By: #### C MP ####[facility] Tzqtpjfzns16[address] [place], [place] [address]Dr. Airam Deuce Globulin (S) [Mass/Vol] 3.2 g/dL Normal [facility] Comment on above: Performed By: #### C MP ####[facility] Yseprwoikm836[address] [place], [place] [address]Dr. Airam Deuce Glucose [Mass/Vol] 98 mg/dL Normal 74-106 [facility] Comment on above: Performed By: #### C MP ####[facility] Huabbveudh5716[address] [place], [place] [address]Dr. Airam Deuce Potassium [Moles/Vol] 4.3 mmol/L Normal 3.5-5.1 [facility] Comment on above: Performed By: #### C MP ####[facility] Vmibzyssaa89300[address] [place], [place] [address]Dr. Airam Deuce Protein [Mass/Vol] 6.8 g/dL Normal 6.4-8.2 [facility] Comment on above: Performed By: #### C MP ####[facility] Loociyrpqi199507 [address] [place], [place] [address]Dr. Airam Tripathi Sodium [Moles/Vol] 135 mmol/L Critically low 136-145 [facility] Comment on above: Performed By: #### C MP ####[facility] Mkfizghscj090[address] [place], [place] [address]Dr. Airam Tripathi Urea nitrogen [Mass/Vol] 33.0 mg/dL Critically high 7.0-18.0 [facility] Comment on above: Performed By: #### C MP ####[facility] Hvdfuebijk776[address] [place], [place] [address]Dr. Airam Tripathi Urea nitrogen/Creatinine [Mass ratio] 27.5 mg/mg Normal [facility] Comment on above: Performed By: #### C MP ####[facility] Lvaodqtmus039[address] [place], [place] [address]Dr. Airam Tripathi OSMOLALITYon 02-07-2022 Osmolality [Osmolality] 299 mosm/kg Critically high 275-295 [facility] Comment on above: Performed By: #### O SMO ####[facility] Fakywcavxk34[address] [place], [place] [address]Dr. Airam Tripathi CBC AUTO DIFFon 02-03-2022 BASO # 0.0 103/ul Normal 0.0-0.1 [facility] Comment on above: Performed By: #### C BC ####[facility] Mighxgbscu8310 [place] [address]Dr. Airam Deuce Basophils/100 WBC (Bld) 0.4 % Normal 0.2-2.0 [facility] Comment on above: Performed By: #### C BC ####[facility] Vmlwhdrerw134[address] [place], [place] [address]Dr. Airam Tripathi EO # 0.3 103/ul Normal 0.0-0.7 [facility] Comment on above: Performed By: #### C BC ####[facility] Lvjbgvncwn376[address] [place], [place] [address]Dr. Airam Tripathi Eosinophils/100 WBC (Bld) 3.6 % Normal 0.9-7.0 [facility] Comment on above: Performed By: #### C BC ####[facility] Ilqmtyllyz980[address] [place], [place] [address]Dr. Airam Tripathi Erythrocyte distribution width (RBC) [Ratio] 13.2 % Normal 11.0-15.0 [facility] Comment on above: Performed By: #### C BC ####[facility] Oadlcvichi347[address] [place], [place] [address]Dr. Airam Tripathi Hematocrit (Bld) [Volume fraction] 32.0 % Critically low 36.0-48.0 [facility] Comment on above: Performed By: #### C BC ####[facility] Whgwgqoioc9848 [place] [id number]. Airam Tripathi Hemoglobin (Bld) [Mass/Vol] 9.8 g/dL Critically low 12.0-16.0 [facility] Comment on above: Performed By: #### C BC ####[facility] Mgcizpxcuk2187 [place] [id number]. Airam Tripathi IG # 0.03 10e3/ul Normal 0.00-0.03 [facility] Comment on above: Performed By: #### C BC ####[facility] Izkkbfqoxr8385 [place] [address]Dr. Airam Tripathi IG % 0.4 % Normal 0.0-0.5 [facility] Comment on above: Performed By: #### C BC ####[facility] Ltodshsuuj8776 [place] [address]Dr. Airam Tripathi LYMPH # 1.7 103/ul Normal 1.2-3.8 [facility] Comment on above: Performed By: #### C BC ####[facility] Zappgpwxyd6202 [place] [address]Dr. Airam Tripathi Lymphocytes/100 WBC (Bld) 24.8 % Normal 20.5-60.0 [facility] Comment on above: Performed By: #### C BC ####[facility] Mntbljzpka4874 [place] [address]Dr. Airam Tripathi MANUAL DIFF REQ NO Normal [facility] Comment on above: Performed By: #### C BC ####[facility] Dypafbzvit67[address] [place], [place] [address]Dr. Airam Tripathi MCH (RBC) [Entitic mass] 29.6 pg Normal 26.7-34.0 [facility] Comment on above: Performed By: #### C BC ####[facility] Cigasrlggb676[address] [place], [place] [address]Dr. Airam Tripathi MCHC (RBC) [Mass/Vol] 30.6 g/dL Normal 29.9-35.2 [facility] Comment on above: Performed By: #### C BC ####[facility] Vkxecrzwzf3058 [place] [id number]. Airam Tripathi MCV (RBC) [Entitic vol] 96.7 fL Normal 81.0-99.0 [facility] Comment on above: Performed By: #### C BC ####[facility] Sojeqavgly5003 [place] [phone]. Airam Tripathi MONO # 0.4 103/ul Normal 0.3-0.8 [facility] Comment on above: Performed By: #### C BC ####[facility] Dewmyniokm8326 [place] [phone]. Airam Tripathi Monocytes/100 WBC (Bld) 6.3 % Normal 1.7-12.0 [facility] Comment on above: Performed By: #### C BC ####[facility] Xluztzmkjp6975 [place] [phone]. Airam Tripathi NEUT # 4.5 103/ul Normal 1.4-6.5 [facility] Comment on above: Performed By: #### C BC ####[facility] Pblahoiyfq8[address] [place], [place] [address]Dr. Airam Tripathi Neutrophils/100 WBC (Bld) 64.5 % Normal 43.0-75.0 [facility] Comment on above: Performed By: #### C BC ####[facility] Rmyblbrnyc8476 [place] [phone]. Airam Tripathi Platelet mean volume (Bld) [Entitic vol] 9.3 fL Critically low 9.5-13.5 [facility] Comment on above: Performed By: #### C BC ####[facility] Yrwkqfssgi[address] [place] [id number]. Airam Tripathi PLT 243 103/ul Normal 150-450 [facility] Comment on above: Performed By: #### C BC ####[facility] Yzzurtjeoe5852 [place] [phone]. Airam Tripathi RBC 3.31 106/ul Critically low 4.20-5.40 [facility] Comment on above: Performed By: #### C BC ####[facility] Uknpjlcmvr9982 [place] [address]Dr. Airam Tripathi WBC 7.0 103/ul Normal 4.0-11.0 [facility] Comment on above: Performed By: #### C BC ####[facility] Lbboynskai9544 [place] [address]Dr. Airam Tripathi PROF 14(COMP METB)on 022 Albumin [Mass/Vol] 3.3 g/dL Critically low 3.4-5.0 [facility] Comment on above: Performed By: #### C MP ####[facility] Hqdq[address]hugw[address] [place] [address]Dr. Airam Tripathi Albumin/Globulin [Mass ratio] 1.1 {ratio} Normal [facility] Comment on above: Performed By: #### C MP ####[facility] Fzwetcffxg150[address] [place], [place] [address]Dr. Airam Tripathi ALP [Catalytic activity/Vol] 126 U/L Critically high 46-116 [facility] Comment on above: Performed By: #### C MP ####[facility] Inlbmkqlmx0729[address] [place], [place] [address]Dr. Airam Tripathi ALT [Catalytic activity/Vol] 21 U/L Normal 14-59 [facility] Comment on above: Performed By: #### C MP ####[facility] Waptayejvr[address] [place], [place] [address]Dr. Airam Tripathi Anion gap [Moles/Vol] 11.8 mmol/L Normal [facility] Comment on above: Performed By: #### C MP ####[facility] Fqqufblquq634[address] [place], [place] [address]Dr. Airam Tripathi AST [Catalytic activity/Vol] 22 U/L Normal 15-37 [facility] Comment on above: Performed By: #### C MP ####[facility] Gasujquman589[address] [place], [place] [address]Dr. Airam Tripathi Bilirubin [Mass/Vol] 0.3 mg/dL Normal 0.2-1.0 [facility] Comment on above: Performed By: #### C MP ####[facility] Dupyrbwist[address] [place] [address]Dr. Airam Tripathi Calcium [Mass/Vol] 8.7 mg/dL Normal 8.5-10.1 [facility] Comment on above: Performed By: #### C MP ####[facility] Hbqwrdyqtt1278 [place] [address]Dr. Airam Tripathi Chloride [Moles/Vol] 102 mmol/L Normal 98-107 [facility] Comment on above: Performed By: #### C MP ####[facility] Mrrzfcfsyg010[address] [place], [place] [address]Dr. Airam Tripathi CO2 [Moles/Vol] 25.5 mmol/L Normal 21.0-32.0 [facility] Comment on above: Performed By: #### C MP ####[facility] Ksxpybhmxf6419[address] [place], [place] [address]Dr. Airam Tripathi Creatinine [Mass/Vol] 1.43 mg/dL Critically high 0.55-1.02 [facility] Comment on above: Performed By: #### C MP ####[facility] Pduhjkiosd499[address] [place], [place] [address]Dr. Airam Tripathi EGFR-AF ROMANIAN 46 mL/min/1.73m2 Critically low >=60 [facility] Comment on above: Performed By: #### C MP ####[facility] Rkyybimbzp528[address] [place], [place] [address]Dr. Airam Tripathi EGFR-NON AF ROMANIAN 38 mL/min/1.73m2 Critically low >=60 [facility] Comment on above: Performed By: #### C MP ####[facility] Mhyarpfddt684[address] [place], [place] [address]Dr. Airam Tripathi Globulin (S) [Mass/Vol] 2.9 g/dL Normal [facility] Comment on above: Performed By: #### C MP ####[facility] Wcmtdgwdux108[address] [place], [place] [address]Dr. Airam Tripathi Glucose [Mass/Vol] 83 mg/dL Normal 74-106 [facility] Comment on above: Performed By: #### C MP ####[facility] Rhfhfjqdvi214407 [address] [place], [place] [address]Dr. Airam Tripathi Potassium [Moles/Vol] 4.3 mmol/L Normal 3.5-5.1 [facility] Comment on above: Performed By: #### C MP ####[facility] Xacxpydlmt9558 [place] [address]Dr. Airam Tripathi Protein [Mass/Vol] 6.2 g/dL Critically low 6.4-8.2 [facility] Comment on above: Performed By: #### C MP ####[facility] Akayhpnwvu[address] [place] [address]Dr. Airam Tripathi Sodium [Moles/Vol] 135 mmol/L Critically low 136-145 [facility] Comment on above: Performed By: #### C MP ####[facility] Abvqlzwliy9954 [place] [address]Dr. Airam Tripathi Urea nitrogen [Mass/Vol] 39.0 mg/dL Critically high 7.0-18.0 [facility] Comment on above: Performed By: #### C MP ####[facility] Iinzayzkks644[address] [place], [place] [address]Dr. Airam Tripathi Urea nitrogen/Creatinine [Mass ratio] 27.3 mg/mg Normal [facility] Comment on above: Performed By: #### C MP ####[facility] Pyavmecser[address] [place] [address]Dr. Airam Tripathi OSMOLALITYon 02-02-2022 Osmolality [Osmolality] 292 mosm/kg Normal 275-295 [facility] Comment on above: Performed By: #### O SMO ####[facility] Rlndforidv96[address] [place] [address]Dr. Airam Tripathi CBC AUTO DIFFon 01-27-2022 BASO # 0.0 103/ul Normal 0.0-0.1 [facility] Comment on above: Performed By: #### C BC ####[facility] Pabhtclloc5620 [place] [address]Dr. Airam Tripathi Basophils/100 WBC (Bld) 0.4 % Normal 0.2-2.0 [facility] Comment on above: Performed By: #### C BC ####[facility] Agtyvvyjfy4[address] [place] [id number]. Airam Tripathi EO # 0.2 103/ul Normal 0.0-0.7 [facility] Comment on above: Performed By: #### C BC ####[facility] Bljbffllvm67[address] [place] [id number]. Airam Tripathi Eosinophils/100 WBC (Bld) 3.4 % Normal 0.9-7.0 [facility] Comment on above: Performed By: #### C BC ####[facility] Zlmctmrabq649[address] [place], [place] [address]Dr. Airam Tripathi Erythrocyte distribution width (RBC) [Ratio] 13.1 % Normal 11.0-15.0 [facility] Comment on above: Performed By: #### C BC ####[facility] Lytsejctrv4724[address] [place], [place] [address]Dr. Airam Tripathi Hematocrit (Bld) [Volume fraction] 31.6 % Critically low 36.0-48.0 [facility] Comment on above: Performed By: #### C BC ####[facility] Swozfekjcj1819[address] [place], [place] [address]Dr. Airam Tripathi Hemoglobin (Bld) [Mass/Vol] 9.9 g/dL Critically low 12.0-16.0 [facility] Comment on above: Performed By: #### C BC ####[facility] Gadlrasmrf925[address] [place], [place] [address]Dr. Airam Triptahi IG # 0.02 10e3/ul Normal 0.00-0.03 [facility] Comment on above: Performed By: #### C BC ####[facility] Luvydxymmk804[address] [place], [place] [address]Dr. Airam Tripathi IG % 0.4 % Normal 0.0-0.5 [facility] Comment on above: Performed By: #### C BC ####[facility] Blonkshwdy25[address] [place], [place] [address]Dr. Airam Tripathi LYMPH # 1.0 103/ul Critically low 1.2-3.8 [facility] Comment on above: Performed By: #### C BC ####[facility] Rvywpqoomo28[address] [place] [id number]. Airam Tripathi Lymphocytes/100 WBC (Bld) 17.4 % Critically low 20.5-60.0 [facility] Comment on above: Performed By: #### C BC ####[facility] Ktioqvxnly[address] [place] [phone]. Airam Tripathi MANUAL DIFF REQ NO Normal [facility] Comment on above: Performed By: #### C BC ####[facility] Uykhrslhdn30[address] [place] [phone]. Airam Tripathi MCH (RBC) [Entitic mass] 30.1 pg Normal 26.7-34.0 [facility] Comment on above: Performed By: #### C BC ####[facility] Yyqkuedbqd[address] [place], [place] [address]Dr. Airam Deuce MCHC (RBC) [Mass/Vol] 31.3 g/dL Normal 29.9-35.2 [facility] Comment on above: Performed By: #### C BC ####[facility] Qqzyfxkzcj5961 [place] [address]Dr. Airam Tripathi MCV (RBC) [Entitic vol] 96.0 fL Normal 81.0-99.0 [facility] Comment on above: Performed By: #### C BC ####[facility] Hzckmqgeqz640[address] [place], [place] [address]Dr. Airam Deuce MONO # 0.5 103/ul Normal 0.3-0.8 [facility] Comment on above: Performed By: #### C BC ####[facility] Zbtczkdpnu1201[address] [place], [place] [address]Dr. Airam Deuce Monocytes/100 WBC (Bld) 8.6 % Normal 1.7-12.0 [facility] Comment on above: Performed By: #### C BC ####[facility] Rhaouizkut52[address] [place], [place] [address]Dr. Airam Tripathi NEUT # 3.9 103/ul Normal 1.4-6.5 [facility] Comment on above: Performed By: #### C BC ####[facility] Avsapczxry88[address] [place] [phone]. Airam Tripathi Neutrophils/100 WBC (Bld) 69.8 % Normal 43.0-75.0 [facility] Comment on above: Performed By: #### C BC ####[facility] Wqhvneybbi92[address] [place] [phone]. Airam Tripathi Platelet mean volume (Bld) [Entitic vol] 9.6 fL Normal 9.5-13.5 [facility] Comment on above: Performed By: #### C BC ####[facility] Crrwksshlk[address] [place] [address]Dr. Airam Deuce PLT 228 103/ul Normal 150-450 [facility] Comment on above: Performed By: #### C BC ####[facility] Oussmxjixv5[address] [place] [address]Dr. Airam Tripathi RBC 3.29 106/ul Critically low 4.20-5.40 [facility] Comment on above: Performed By: #### C BC ####[facility] Bshpdkqram33[address] [place] [address]Dr. Airam Tripathi WBC 5.6 103/ul Normal 4.0-11.0 [facility] Comment on above: Performed By: #### C BC ####[facility] Nwlzxxxywf87[address] [place] [address]Dr. Airam Tripathi PROF 14(COMP METB)on 022 Albumin [Mass/Vol] 3.1 g/dL Critically low 3.4-5.0 [facility] Comment on above: Performed By: #### C MP ####[facility] Sausezhwdq24[address] [place] [address]Dr. Airam Tripathi Albumin/Globulin [Mass ratio] 1.0 {ratio} Normal [facility] Comment on above: Performed By: #### C MP ####[facility] Jzyckrolfx9[address] [place] [address]Dr. Airam Deuce ALP [Catalytic activity/Vol] 131 U/L Critically high 46-116 [facility] Comment on above: Performed By: #### C MP ####[facility] Qbdpblugzq8767 [place], [place] [address]Ec. Airam Tripathi ALT [Catalytic activity/Vol] 19 U/L Normal 14-59 [facility] Comment on above: Performed By: #### C MP ####[facility] Zqogmmdyll5844 [place], [place] [address]Xm. Airam Tripathi Anion gap [Moles/Vol] 12.9 mmol/L Normal [facility] Comment on above: Performed By: #### C MP ####[facility] B[address]kfrsmue3[address] [place] [phone]. Airam Tripathi AST [Catalytic activity/Vol] 21 U/L Normal 15-37 [facility] Comment on above: Performed By: #### C MP ####[facility] Bdadmrpggb7348 [place] [phone]. Airam Tripathi Bilirubin [Mass/Vol] 0.2 mg/dL Normal 0.2-1.0 [facility] Comment on above: Performed By: #### C MP ####[facility] Ewjumymxtd64[address] [place] [phone]. Airam Tripathi Calcium [Mass/Vol] 8.4 mg/dL Critically low 8.5-10.1 [facility] Comment on above: Performed By: #### C MP ####[facility] Kw[address]azqvshg79[address] [place] [phone]. Airam Tripathi Chloride [Moles/Vol] 103 mmol/L Normal 98-107 [facility] Comment on above: Performed By: #### C MP ####[facility] Pkuqssrqqq7138 [place] [phone]. Airam Tripathi CO2 [Moles/Vol] 23.7 mmol/L Normal 21.0-32.0 [facility] Comment on above: Performed By: #### C MP ####[facility] Dtwrvfseea[address] [place] [phone]. Airam Tripathi Creatinine [Mass/Vol] 1.37 mg/dL Critically high 0.55-1.02 [facility] Comment on above: Performed By: #### C MP ####[facility] Clihqwghrn035[address] [place] [phone]. Airam Tripathi EGFR-AF ROMANIAN 48 mL/min/1.73m2 Critically low >=60 [facility] Comment on above: Performed By: #### C MP ####[facility] Mheikshwhx8394 [place] [phone]. Airam Tripathi EGFR-NON AF ROMANIAN 39 mL/min/1.73m2 Critically low >=60 [facility] Comment on above: Performed By: #### C MP ####[facility] Dbitlsjlqm5242 [place] [phone]. Airam Tripathi Globulin (S) [Mass/Vol] 3.1 g/dL Normal [facility] Comment on above: Performed By: #### C MP ####[facility] Mjruqwipjl2831 [place] [phone]. Airam Tripathi Glucose [Mass/Vol] 88 mg/dL Normal 74-106 [facility] Comment on above: Performed By: #### C MP ####[facility] Ahslqyygps5[address] [place] [phone]. Airam Tripathi Potassium [Moles/Vol] 4.6 mmol/L Normal 3.5-5.1 [facility] Comment on above: Performed By: #### C MP ####[facility] Dkhnmkaohd2393 [place] [phone]. Airam Tripathi Protein [Mass/Vol] 6.2 g/dL Critically low 6.4-8.2 [facility] Comment on above: Performed By: #### C MP ####[facility] Vlkmupezdq3364 [place] [phone]. Airam Tripathi Sodium [Moles/Vol] 135 mmol/L Critically low 136-145 [facility] Comment on above: Performed By: #### C MP ####[facility] Qznxziimal5109 [place] [phone]. Airam Tripathi Urea nitrogen [Mass/Vol] 34.0 mg/dL Critically high 7.0-18.0 [facility] Comment on above: Performed By: #### C MP ####[facility] Nkpyjmisgm3897 [place] [address]Dr. Airam Tripathi Urea nitrogen/Creatinine [Mass ratio] 24.8 mg/mg Normal [facility] Comment on above: Performed By: #### C MP ####[facility] Iuvixbupns5263 [place] [address]Dr. Airam Tripathi OSMOLALITYon 01-21-2022 Osmolality [Osmolality] 276 mosm/kg Normal 275-295 [facility] Comment on above: Performed By: #### O SMO ####[facility] Pjkiibvfhi394[address] [place], [place] [address]Dr. Airam Tripathi MRI CSPINE WO CONon 01-21-20 MRI CSPINE WO CON Normal [facility] CBC AUTO DIFFon 01-19-2022 BASO # 0.0 103/ul Normal 0.0-0.1 [facility] Comment on above: Performed By: #### C BC ####[facility] Giwnvphifo34340[address] [place], [place] [address]Dr. Airam Deuce Basophils/100 WBC (Bld) 0.2 % Normal 0.2-2.0 [facility] Comment on above: Performed By: #### C BC ####[facility] Xzzauvqzfu897707 [address] [place], [place] [address]Dr. Airam Deuce EO # 0.2 103/ul Normal 0.0-0.7 [facility] Comment on above: Performed By: #### C BC ####[facility] Jpgsubbbjf986[address] [place], [place] [address]Dr. Airam Deuce Eosinophils/100 WBC (Bld) 2.1 % Normal 0.9-7.0 [facility] Comment on above: Performed By: #### C BC ####[facility] Cnoyrsghfo724[address] [place], [place] [address]Dr. Airam Deuce Erythrocyte distribution width (RBC) [Ratio] 12.7 % Normal 11.0-15.0 [facility] Comment on above: Performed By: #### C BC ####[facility] Eozaikdxcm218307 [address] [place], [place] [address]Dr. Selenaneil Deuce Hematocrit (Bld) [Volume fraction] 32.2 % Critically low 36.0-48.0 [facility] Comment on above: Performed By: #### C BC ####[facility] Ctwwsiugxf4732 [place] [address]DrKianna Airam Tripathi Hemoglobin (Bld) [Mass/Vol] 10.4 g/dL Critically low 12.0-16.0 [facility] Comment on above: Performed By: #### C BC ####[facility] Iaxrzfkrml6501[address] [place], [place] [address]DrKianna Airam Tripathi IG # 0.03 10e3/ul Normal 0.00-0.03 [facility] Comment on above: Performed By: #### C BC ####[facility] Zldzpuweuk080[address] [place], [place] [address]DrKianna Airam Deuce IG % 0.3 % Normal 0.0-0.5 [facility] Comment on above: Performed By: #### C BC ####[facility] Ljkiczxiln46300[address] [place], [place] [address]DrKianna Airam Deuce LYMPH # 1.4 103/ul Normal 1.2-3.8 [facility] Comment on above: Performed By: #### C BC ####[facility] Ghkfzbtsdp351807 [address] [place], [place] [address]DrKianna Airam Tripathi Lymphocytes/100 WBC (Bld) 16.0 % Critically low 20.5-60.0 [facility] Comment on above: Performed By: #### C BC ####[facility] Ydscbnlqmz0739[address] [place], [place] [address]DrKianna Airam Deuce MANUAL DIFF REQ NO Normal [facility] Comment on above: Performed By: #### C BC ####[facility] Ccgsyrarnq0419[address] [place], [place] [address]DrKianna Airam Deuce MCH (RBC) [Entitic mass] 30.0 pg Normal 26.7-34.0 [facility] Comment on above: Performed By: #### C BC ####[facility] Yxlmgvptis59340[address] [place], [place] [address]DrKianna Airam Deuce MCHC (RBC) [Mass/Vol] 32.3 g/dL Normal 29.9-35.2 [facility] Comment on above: Performed By: #### C BC ####[facility] Vxxkggiqex3304 [place] [address]DrKianna Tripathi MCV (RBC) [Entitic vol] 92.8 fL Normal 81.0-99.0 [facility] Comment on above: Performed By: #### C BC ####[facility] Wsanhqqpol598[address] [place], [place] [address]DrKianna Tripathi MONO # 0.4 103/ul Normal 0.3-0.8 [facility] Comment on above: Performed By: #### C BC ####[facility] Vqpidjkngu169207 [address] [place], [place] [address]DrKianna Tripathi Monocytes/100 WBC (Bld) 4.9 % Normal 1.7-12.0 [facility] Comment on above: Performed By: #### C BC ####[facility] Ezukpnfarw531107 [address] [place], [place] [address]DrKianna Tripathi NEUT # 6.6 103/ul Critically high 1.4-6.5 [facility] Comment on above: Performed By: #### C BC ####[facility] Nmzrbnqebv710507 [address] [place], [place] [address]DrKianna Tripathi Neutrophils/100 WBC (Bld) 76.5 % Critically high 43.0-75.0 [facility] Comment on above: Performed By: #### C BC ####[facility] Bdnxvdpnay844207 [address] [place], [place] [address]DrKianna Tripathi Platelet mean volume (Bld) [Entitic vol] 9.8 fL Normal 9.5-13.5 [facility] Comment on above: Performed By: #### C BC ####[facility] Udqcxjsppd350607 [address] [place], [place] [address]DrKianna Tripathi PLT 262 103/ul Normal 150-450 [facility] Comment on above: Performed By: #### C BC ####[facility] Vralykxqes433[address] [place], [place] [address]DrKianna Tripathi RBC 3.47 106/ul Critically low 4.20-5.40 [facility] Comment on above: Performed By: #### C BC ####[facility] Ralerhawzz8303 [place] [address]Dr. Airam Tripathi WBC 8.7 103/ul Normal 4.0-11.0 [facility] Comment on above: Performed By: #### C BC ####[facility] Izcnxiuzyt710207 [address] [place], [place] [address]DrKianna Tripathi PROF 14(COMP METB)on 022 Albumin [Mass/Vol] 3.3 g/dL Critically low 3.4-5.0 [facility] Comment on above: Performed By: #### C MP ####[facility] Llftrielcj290[address] [place], [place] [address]DrKianna Tripathi Albumin/Globulin [Mass ratio] 1.1 {ratio} Normal [facility] Comment on above: Performed By: #### C MP ####[facility] Bhfkxnqwhg3501[address] [place], [place] [address]DrKianna Tripathi ALP [Catalytic activity/Vol] 114 U/L Normal 46-116 [facility] Comment on above: Performed By: #### C MP ####[facility] Lizmeynqkw445[address] [place], [place] [address]DrKianna Tripathi ALT [Catalytic activity/Vol] 20 U/L Normal 14-59 [facility] Comment on above: Performed By: #### C MP ####[facility] Poirjwdxzk3699[address] [place], [place] [address]DrKianna Tripathi Anion gap [Moles/Vol] 14.7 mmol/L Normal [facility] Comment on above: Performed By: #### C MP ####[facility] Jnredaqdcw280[address] [place], [place] [address]Dr. Airam Tripathi AST [Catalytic activity/Vol] 22 U/L Normal 15-37 [facility] Comment on above: Performed By: #### C MP ####[facility] Pfktcazcjy936[address] [place], [place] [address]DrKianna Tripathi Bilirubin [Mass/Vol] 0.3 mg/dL Normal 0.2-1.0 [facility] Comment on above: Performed By: #### C MP ####[facility] Hzsucohhql131207 [address] [place], [place] [address]Dr. Airam Deuce Calcium [Mass/Vol] 8.8 mg/dL Normal 8.5-10.1 [facility] Comment on above: Performed By: #### C MP ####[facility] Ppbbrpaxen259[address] [place], [place] [address]Dr. Airam Tripathi Chloride [Moles/Vol] 97 mmol/L Critically low 98-107 [facility] Comment on above: Performed By: #### C MP ####[facility] Hllpsduhek874[address] [place], [place] [address]Dr. Selenaneil Deuce CO2 [Moles/Vol] 24.5 mmol/L Normal 21.0-32.0 [facility] Comment on above: Performed By: #### C MP ####[facility] Tlfhlqxrjx356407 [address] [place], [place] [address]Dr. Selenaneil Tripathi Creatinine [Mass/Vol] 1.28 mg/dL Critically high 0.55-1.02 [facility] Comment on above: Performed By: #### C MP ####[facility] Vzsbeyegry970[address] [place], [place] [address]Dr. Selenaneil Deuce EGFR-AF ROMANIAN 52 mL/min/1.73m2 Critically low >=60 [facility] Comment on above: Performed By: #### C MP ####[facility] Nsejkbzxnj785[address] [place], [place] [address]Dr. Selenaneil Deuce EGFR-NON AF ROMANIAN 43 mL/min/1.73m2 Critically low >=60 [facility] Comment on above: Performed By: #### C MP ####[facility] Shbwpsxbzu912[address] [place], [place] [address]Dr. Airam Tripathi Globulin (S) [Mass/Vol] 3.1 g/dL Normal [facility] Comment on above: Performed By: #### C MP ####[facility] Adtpeenygk207607 [address] [place], [place] [address]Dr. Airam Tripathi Glucose [Mass/Vol] 87 mg/dL Normal 74-106 [facility] Comment on above: Performed By: #### C MP ####[facility] Uwqxmjmgse410[address] [place], [place] [address]Dr. Airam Tripathi Potassium [Moles/Vol] 4.2 mmol/L Normal 3.5-5.1 [facility] Comment on above: Performed By: #### C MP ####[facility] Losuofwnge108[address] [place], [place] [address]Dr. Airam Tripathi Protein [Mass/Vol] 6.4 g/dL Normal 6.4-8.2 [facility] Comment on above: Performed By: #### C MP ####[facility] Brtjnabcor37[address] [place], [place] [address]Dr. Airam Tripathi Sodium [Moles/Vol] 132 mmol/L Critically low 136-145 [facility] Comment on above: Performed By: #### C MP ####[facility] Nohjiyeigt064[address] [place], [place] [address]Dr. Airam Tripathi Urea nitrogen [Mass/Vol] 36.0 mg/dL Critically high 7.0-18.0 [facility] Comment on above: Performed By: #### C MP ####[facility] Rgxbnqdpgz774[address] [place], [place] [address]Dr. Airam Tripathi Urea nitrogen/Creatinine [Mass ratio] 28.1 mg/mg Normal [facility] Comment on above: Performed By: #### C MP ####[facility] Adclhowklp1201[address] [place], [place] [address]Dr. Airam Tripathi XR DEXA BONE DENSITYon 01-19 XR DEXA BONE DENSITY Normal [facility] OSMOLALITYon 01-13-2022 Osmolality [Osmolality] 277 mosm/kg Normal 275-295 [facility] Comment on above: Performed By: #### O SMO ####[facility] Kshnnchphv630[address] [place], [place] [address]Dr. Airam Tripathi CBC AUTO DIFFon 01-11-2022 BASO # 0.0 103/ul Normal 0.0-0.1 [facility] Comment on above: Performed By: #### C BC ####[facility] Saqjjfxnyf3543 [place] [id number]. Airam Tripathi Basophils/100 WBC (Bld) 0.5 % Normal 0.2-2.0 [facility] Comment on above: Performed By: #### C BC ####[facility] Cafbzfdanx9365 [place] [phone]. Airam Tripathi EO # 0.2 103/ul Normal 0.0-0.7 [facility] Comment on above: Performed By: #### C BC ####[facility] Giihkbglvr[address] [place], [place] [address]Dr. Airam Tripathi Eosinophils/100 WBC (Bld) 3.1 % Normal 0.9-7.0 [facility] Comment on above: Performed By: #### C BC ####[facility] Owwfazwshp980[address] [place], [place] [address]Dr. Airam Tripathi Erythrocyte distribution width (RBC) [Ratio] 12.5 % Normal 11.0-15.0 [facility] Comment on above: Performed By: #### C BC ####[facility] Sxpuviinuw[address] [place] [address]Dr. Airam Tripathi Hematocrit (Bld) [Volume fraction] 34.4 % Critically low 36.0-48.0 [facility] Comment on above: Performed By: #### C BC ####[facility] Lwdppbzpbe[address] [place], [place] [id number]. Airam rTipathi Hemoglobin (Bld) [Mass/Vol] 11.0 g/dL Critically low 12.0-16.0 [facility] Comment on above: Performed By: #### C BC ####[facility] Unkmrrvwlt[address] [place], [place] [address]Dr. Airam Tripathi IG # 0.03 10e3/ul Normal 0.00-0.03 [facility] Comment on above: Performed By: #### C BC ####[facility] Dzjxxfnyfr[address] [place], [place] [address]Dr. Airam Tripathi IG % 0.5 % Normal 0.0-0.5 [facility] Comment on above: Performed By: #### C BC ####[facility] Jazjuwxxti9948 [place] [phone]. Airam Tripathi LYMPH # 1.6 103/ul Normal 1.2-3.8 [facility] Comment on above: Performed By: #### C BC ####[facility] Dybfumgnjw9524 [place] [phone]. Airam Tripathi Lymphocytes/100 WBC (Bld) 28.0 % Normal 20.5-60.0 [facility] Comment on above: Performed By: #### C BC ####[facility] Vlvqzckwcw2437 [place] [address]Dr. Airam Tripathi MANUAL DIFF REQ NO Normal [facility] Comment on above: Performed By: #### C BC ####[facility] Qqscsqkony0828 [place] [address]Dr. Airam Deuce MCH (RBC) [Entitic mass] 30.1 pg Normal 26.7-34.0 [facility] Comment on above: Performed By: #### C BC ####[facility] Ldehmotrhs[address] [place], [place] [address]Dr. Airam Tripathi MCHC (RBC) [Mass/Vol] 32.0 g/dL Normal 29.9-35.2 [facility] Comment on above: Performed By: #### C BC ####[facility] Auzymbskwv5160 [place] [phone]. Airam Deuce MCV (RBC) [Entitic vol] 94.0 fL Normal 81.0-99.0 [facility] Comment on above: Performed By: #### C BC ####[facility] Oyoebpdqng3242 [place] [phone]. Airam Tripathi MONO # 0.4 103/ul Normal 0.3-0.8 [facility] Comment on above: Performed By: #### C BC ####[facility] Hycqramhgz0401 [place] [address]Dr. Airam Deuce Monocytes/100 WBC (Bld) 7.5 % Normal 1.7-12.0 [facility] Comment on above: Performed By: #### C BC ####[facility] Uuupenxhvf9806 [place] [phone]. Airam Tripathi NEUT # 3.5 103/ul Normal 1.4-6.5 [facility] Comment on above: Performed By: #### C BC ####[facility] Jwnsmdtzsb2742 [place] [phone]. Airam Tripathi Neutrophils/100 WBC (Bld) 60.4 % Normal 43.0-75.0 [facility] Comment on above: Performed By: #### C BC ####[facility] Jjbbhnuopa6743 [place] [phone]. Airam Tripathi Platelet mean volume (Bld) [Entitic vol] 10.0 fL Normal 9.5-13.5 [facility] Comment on above: Performed By: #### C BC ####[facility] Xinmrkbcxz7526 [place] [phone]. Airam Tripathi PLT 300 103/ul Normal 150-450 [facility] Comment on above: Performed By: #### C BC ####[facility] Rwwwmjycda4605 [place] [phone]. Airam Tripathi RBC 3.66 106/ul Critically low 4.20-5.40 [facility] Comment on above: Performed By: #### C BC ####[facility] Joibwlakeb2027 [place] [phone]. Airam Tripathi WBC 5.7 103/ul Normal 4.0-11.0 [facility] Comment on above: Performed By: #### C BC ####[facility] Swzldjnnua6694 [place] [address]Dr. Selenaneil Tripathi PROF 14(COMP METB)on 022 Albumin [Mass/Vol] 3.3 g/dL Critically low 3.4-5.0 [facility] Comment on above: Performed By: #### C MP ####[facility] Ibmlvftzdt5015 [place] [phone]. Airam Deuce Albumin/Globulin [Mass ratio] 1.0 {ratio} Normal [facility] Comment on above: Performed By: #### C MP ####[facility] Kepqphcnav7710 [place] [phone]. Airam Tripathi ALP [Catalytic activity/Vol] 138 U/L Critically high 46-116 [facility] Comment on above: Performed By: #### C MP ####[facility] Ykjrdyrqrq1945 [place] [phone]. Airam Tripathi ALT [Catalytic activity/Vol] 25 U/L Normal 14-59 [facility] Comment on above: Performed By: #### C MP ####[facility] Hwddbsjddt3156 [place] [address]Dr. Airam Tripathi Anion gap [Moles/Vol] 14.0 mmol/L Normal [facility] Comment on above: Performed By: #### C MP ####[facility] Xasryzcrus[address] [place], [place] [address]Dr. Airam Tripathi AST [Catalytic activity/Vol] 19 U/L Normal 15-37 [facility] Comment on above: Performed By: #### C MP ####[facility] Mudbvjrpfb196[address] [place], [place] [address]Dr. Airam Tripathi Bilirubin [Mass/Vol] 0.3 mg/dL Normal 0.2-1.0 [facility] Comment on above: Performed By: #### C MP ####[facility] Ytnjnvfyfm677[address] [place], [place] [address]Dr. Airam Tripathi Calcium [Mass/Vol] 8.7 mg/dL Normal 8.5-10.1 [facility] Comment on above: Performed By: #### C MP ####[facility] Rxnnzzmtur[address] [place], [place] [address]Dr. Airam Tripathi Chloride [Moles/Vol] 99 mmol/L Normal 98-107 [facility] Comment on above: Performed By: #### C MP ####[facility] Mpjceudtew6157 [place] [address]Dr. Airam Tripathi CO2 [Moles/Vol] 25.4 mmol/L Normal 21.0-32.0 [facility] Comment on above: Performed By: #### C MP ####[facility] Tavknjwrka1371 [place] [phone]. Airam Tripathi Creatinine [Mass/Vol] 1.22 mg/dL Critically high 0.55-1.02 [facility] Comment on above: Performed By: #### C MP ####[facility] Xwevzajiak2204 [place] [phone]. Airam Tripathi EGFR-AF ROMANIAN 55 mL/min/1.73m2 Critically low >=60 [facility] Comment on above: Performed By: #### C MP ####[facility] Bxfjcqcmmt2427 [place] [phone]. Airam Tripathi EGFR-NON AF ROMANIAN 45 mL/min/1.73m2 Critically low >=60 [facility] Comment on above: Performed By: #### C MP ####[facility] Xxueabheel9255 [place] [phone]. Airam Tripathi Globulin (S) [Mass/Vol] 3.2 g/dL Normal [facility] Comment on above: Performed By: #### C MP ####[facility] Vlgysftnnr3099 [place] [phone]. Airam Tripathi Glucose [Mass/Vol] 111 mg/dL Critically high 74-106 [facility] Comment on above: Performed By: #### C MP ####[facility] Cutqaaqdfb1484 [place] [phone]. Airam Tripathi Potassium [Moles/Vol] 4.4 mmol/L Normal 3.5-5.1 [facility] Comment on above: Performed By: #### C MP ####[facility] Peasnntema8549 [place] [phone]. Airam Tripathi Protein [Mass/Vol] 6.5 g/dL Normal 6.4-8.2 [facility] Comment on above: Performed By: #### C MP ####[facility] Nlbfpyoogt8317 [place] [phone]. Airam Tripathi Sodium [Moles/Vol] 134 mmol/L Critically low 136-145 [facility] Comment on above: Performed By: #### C MP ####[facility] Jzqbzpoqhj1578 [place], [place] [address]Ir. Airam Tripathi Urea nitrogen [Mass/Vol] 27.0 mg/dL Critically high 7.0-18.0 [facility] Comment on above: Performed By: #### C MP ####[facility] Huqjufijtt9264 [place], [place] [address]Wx. Airam Tripathi Urea nitrogen/Creatinine [Mass ratio] 22.1 mg/mg Normal [facility] Comment on above: Performed By: #### C MP ####[facility] Vugsjzjznh3038 [place], [place] [address]Yf. Airam Tripathi CT CERVICAL SPINE WITHOUT CO NTRASTon 01-10-2022 CT CERVICAL SPINE WITHOUT CONTRAST [facility] Department of Radiology [address] [place] [id number] Patient Name: MABEL MOSER : 1960 Sex: F Age: Race: White Pt. Location: 29 Patient Status: D Ordered Date: 08/17/2021 10:00:00 AM Completed Date: 01/10/2022 10:24 AM Requesting Provider: ROBERT JOHNSTON Attending Provider: ROBERT JOHNSTON Report Copy To: ANGLE SANTANA Signs & Symptoms: M54.12 Radiculopathy, cervical region I10 History: [place] seeing Dr. Johnston after Comments: Exam: CT [...] achievable. Electronically signed: Ayleen Ny. Transcribed by: [email or web address], User Resident: Electronically Signed by: AYLEEN [place] @ 01/12/2022 12:32 PM Normal [facility] OSMOLALITYon 01-07-2022 Osmolality [Osmolality] 286 mosm/kg Normal 275-295 [facility] Comment on above: Performed By: #### O SMO ####[facility] Jeadsdzlpq5479 [place] [phone]. Airam Tripathi CBC AUTO DIFFon 01-06-2022 BASO # 0.0 103/ul Normal 0.0-0.1 [facility] Comment on above: Performed By: #### C BC ####[facility] Sxogpdszoc2017 [place] [phone] Tripathi Basophils/100 WBC (Bld) 0.3 % Normal 0.2-2.0 [facility] Comment on above: Performed By: #### C BC ####[facility] Btdyqjhxrd[address] [place], [place] [address]Dr. Airam Tripathi EO # 0.2 103/ul Normal 0.0-0.7 [facility] Comment on above: Performed By: #### C BC ####[facility] Buhdxkapjy237[address] [place], [place] [address]Dr. Airam Tripathi Eosinophils/100 WBC (Bld) 4.1 % Normal 0.9-7.0 [facility] Comment on above: Performed By: #### C BC ####[facility] Ejehjylkfn78[address] [place], [place] [address]Dr. Airam Tripathi Erythrocyte distribution width (RBC) [Ratio] 12.9 % Normal 11.0-15.0 [facility] Comment on above: Performed By: #### C BC ####[facility] Pdjsckvlqq445[address] [place], [place] [address]Dr. Airam Tripathi Hematocrit (Bld) [Volume fraction] 34.2 % Critically low 36.0-48.0 [facility] Comment on above: Performed By: #### C BC ####[facility] Sjwsrxrmmv249[address] [place], [place] [address]Dr. Airam Tripathi Hemoglobin (Bld) [Mass/Vol] 10.6 g/dL Critically low 12.0-16.0 [facility] Comment on above: Performed By: #### C BC ####[facility] Zhebydnyzb[address] [place], [place] [address]Dr. Airam Tripathi IG # 0.03 10e3/ul Normal 0.00-0.03 [facility] Comment on above: Performed By: #### C BC ####[facility] Nfdgvutitv040[address] [place], [place] [address]Dr. Airam Tripathi IG % 0.5 % Normal 0.0-0.5 [facility] Comment on above: Performed By: #### C BC ####[facility] Vimhqxsvyt680[address] [place], [place] [address]DrKianna Tripathi LYMPH # 1.1 103/ul Critically low 1.2-3.8 [facility] Comment on above: Performed By: #### C BC ####[facility] Djaznplldf7834 [place] [address]Dr. Airam Tripathi Lymphocytes/100 WBC (Bld) 18.2 % Critically low 20.5-60.0 [facility] Comment on above: Performed By: #### C BC ####[facility] Kkaqxkgaqa9[address] [place], [place] [address]Dr. Airam Tripathi MANUAL DIFF REQ NO Normal [facility] Comment on above: Performed By: #### C BC ####[facility] Gsueypfvac677[address] [place], [place] [address]Dr. Airam Tripathi MCH (RBC) [Entitic mass] 29.6 pg Normal 26.7-34.0 [facility] Comment on above: Performed By: #### C BC ####[facility] Kwncufxcqy90[address] [place], [place] [address]Dr. Airam Tripathi MCHC (RBC) [Mass/Vol] 31.0 g/dL Normal 29.9-35.2 [facility] Comment on above: Performed By: #### C BC ####[facility] Xrusdmscsk916[address] [place], [place] [address]Dr. Airam Tripathi MCV (RBC) [Entitic vol] 95.5 fL Normal 81.0-99.0 [facility] Comment on above: Performed By: #### C BC ####[facility] Notxhqagwq910[address] [place], [place] [address]Dr. Airam Tripathi MONO # 0.5 103/ul Normal 0.3-0.8 [facility] Comment on above: Performed By: #### C BC ####[facility] Akmykracux517[address] [place], [place] [address]Dr. Airam Tripathi Monocytes/100 WBC (Bld) 8.5 % Normal 1.7-12.0 [facility] Comment on above: Performed By: #### C BC ####[facility] Zvkxmxfipn085[address] [place], [place] [address]Dr. Airam Tripathi NEUT # 4.0 103/ul Normal 1.4-6.5 [facility] Comment on above: Performed By: #### C BC ####[facility] Wvybjggtft7369 [place] [address]Dr. Airam Tripathi Neutrophils/100 WBC (Bld) 68.4 % Normal 43.0-75.0 [facility] Comment on above: Performed By: #### C BC ####[facility] Jpgitylejc6127 [place] [address]Dr. Airam Tripathi Platelet mean volume (Bld) [Entitic vol] 10.1 fL Normal 9.5-13.5 [facility] Comment on above: Performed By: #### C BC ####[facility] Liiywctltj701[address] [place], [place] [address]Dr. Airam Tripathi PLT 304 103/ul Normal 150-450 [facility] Comment on above: Performed By: #### C BC ####[facility] Hscyekipom4055 [place] [address]Dr. Airam Tripathi RBC 3.58 106/ul Critically low 4.20-5.40 [facility] Comment on above: Performed By: #### C BC ####[facility] Sydvdnieuo7[address] [place], [place] [address]Dr. Airam Tripathi WBC 5.9 103/ul Normal 4.0-11.0 [facility] Comment on above: Performed By: #### C BC ####[facility] Abiplvefjp7[address] [place], [place] [address]Dr. Airam Tripathi MG MAMM RT DIAG FUon 022 MG MAMM RT DIAG FU Normal [facility] PROF 14(COMP METB)on 022 Albumin [Mass/Vol] 3.1 g/dL Critically low 3.4-5.0 [facility] Comment on above: Performed By: #### C MP ####[facility] Pxeripkcyq4126 [place] [address]Dr. Airam Tripathi Albumin/Globulin [Mass ratio] 1.0 {ratio} Normal [facility] Comment on above: Performed By: #### C MP ####[facility] Gmtfrqjfhy4821 [place] [phone]. Airam Tripathi ALP [Catalytic activity/Vol] 143 U/L Critically high 46-116 [facility] Comment on above: Performed By: #### C MP ####[facility] Jdoftrbmlf5025 [place] [phone]. Airam Tripathi ALT [Catalytic activity/Vol] 23 U/L Normal 14-59 [facility] Comment on above: Performed By: #### C MP ####[facility] Iqwljeyfeb9765 [place] [address]Dr. Airam Tripathi Anion gap [Moles/Vol] 13.2 mmol/L Normal [facility] Comment on above: Performed By: #### C MP ####[facility] Gueouakiny1735 [place] [address]Dr. Airam Tripathi AST [Catalytic activity/Vol] 20 U/L Normal 15-37 [facility] Comment on above: Performed By: #### C MP ####[facility] Alzyvchwtw8[address] [place], [place] [address]Dr. Airam Tripathi Bilirubin [Mass/Vol] 0.3 mg/dL Normal 0.2-1.0 [facility] Comment on above: Performed By: #### C MP ####[facility] Lsswokampa[address] [place], [place] [address]Dr. Airam Tripathi Calcium [Mass/Vol] 8.2 mg/dL Critically low 8.5-10.1 [facility] Comment on above: Performed By: #### C MP ####[facility] Osbyuejrns4801 [place] [address]Dr. Airam Tripathi Chloride [Moles/Vol] 100 mmol/L Normal 98-107 [facility] Comment on above: Performed By: #### C MP ####[facility] Irtvbkvbfr2230 [place] [address]Dr. Airam Tripathi CO2 [Moles/Vol] 26.0 mmol/L Normal 21.0-32.0 [facility] Comment on above: Performed By: #### C MP ####[facility] Kmzirwlney7966 [place] [address]Dr. Airam Tripathi Creatinine [Mass/Vol] 1.52 mg/dL Critically high 0.55-1.02 [facility] Comment on above: Performed By: #### C MP ####[facility] Smhtjvxzcf8499 [place] [address]Dr. Airam Tripathi EGFR-AF ROMANIAN 42 mL/min/1.73m2 Critically low >=60 [facility] Comment on above: Performed By: #### C MP ####[facility] Qzassaprda8770 [place] [address]Dr. Airam Tripathi EGFR-NON AF ROMANIAN 35 mL/min/1.73m2 Critically low >=60 [facility] Comment on above: Performed By: #### C MP ####[facility] Iosciefppv6496 [place] [address]Dr. Airam Tripathi Globulin (S) [Mass/Vol] 3.2 g/dL Normal [facility] Comment on above: Performed By: #### C MP ####[facility] Xkdmwivinm950[address] [place], [place] [address]Dr. Airam Tripathi Glucose [Mass/Vol] 84 mg/dL Normal 74-106 [facility] Comment on above: Performed By: #### C MP ####[facility] Hutqigmcxi6075 [place] [address]Dr. Airam Tripathi Potassium [Moles/Vol] 4.2 mmol/L Normal 3.5-5.1 [facility] Comment on above: Performed By: #### C MP ####[facility] Ldjlfelkmx1937 [place] [address]Dr. Airam Tripathi Protein [Mass/Vol] 6.3 g/dL Critically low 6.4-8.2 [facility] Comment on above: Performed By: #### C MP ####[facility] Uljdavlifu9[address] [place], [place] [address]Dr. Airam Tripathi Sodium [Moles/Vol] 135 mmol/L Critically low 136-145 [facility] Comment on above: Performed By: #### C MP ####[facility] Smrgjiobay9807 [place] [address]Dr. Airam Deuce Urea nitrogen [Mass/Vol] 36.0 mg/dL Critically high 7.0-18.0 [facility] Comment on above: Performed By: #### C MP ####[facility] Vjbiakozcp17[address] [place], [place] [address]Dr. Airam Deuce Urea nitrogen/Creatinine [Mass ratio] 23.7 mg/mg Normal [facility] Comment on above: Performed By: #### C MP ####[facility] Trurradpwg433[address] [place], [place] [address]Dr. Selenaneil Tripathi US BREAST RIGHT LIMITEDon US BREAST RIGHT LIMITED Normal [facility] OSMOLALITYon 12-31-2021 Osmolality [Osmolality] 280 mosm/kg Normal 275-295 [facility] Comment on above: Performed By: #### O SMO ####[facility] Oetjzjwpbw35[address] [place], [place] [address]Dr. Airam Tripathi CBC AUTO DIFFon 12-30-2021 BASO # 0.0 103/ul Normal 0.0-0.1 [facility] Comment on above: Performed By: #### C BC ####[facility] Mytfhrgrdz8[address] [place], [place] [address]Dr. Airam Tripathi Basophils/100 WBC (Bld) 0.5 % Normal 0.2-2.0 [facility] Comment on above: Performed By: #### C BC ####[facility] Fzzwayavoy667[address] [place], [place] [address]Dr. Airam Tripathi EO # 0.3 103/ul Normal 0.0-0.7 [facility] Comment on above: Performed By: #### C BC ####[facility] Muqcfuhslv747[address] [place], [place] [address]Dr. Airam Tripathi Eosinophils/100 WBC (Bld) 3.5 % Normal 0.9-7.0 [facility] Comment on above: Performed By: #### C BC ####[facility] Zbjnagpucw30[address] [place], [place] [address]Dr. Airam Tripathi Erythrocyte distribution width (RBC) [Ratio] 13.0 % Normal 11.0-15.0 [facility] Comment on above: Performed By: #### C BC ####[facility] Wacekumzld9697 [place] [address]Dr. Airam Tripathi Hematocrit (Bld) [Volume fraction] 34.2 % Critically low 36.0-48.0 [facility] Comment on above: Performed By: #### C BC ####[facility] Wkhhgdotou5270 [place] [address]DrKianna Tripathi Hemoglobin (Bld) [Mass/Vol] 10.4 g/dL Critically low 12.0-16.0 [facility] Comment on above: Performed By: #### C BC ####[facility] Tbyadugomj9[address] [place], [place] [address]DrKianna Tripathi IG # 0.04 10e3/ul Critically high 0.00-0.03 [facility] Comment on above: Performed By: #### C BC ####[facility] Bkdryzyvha79[address] [place], [place] [address]Dr. Airam Tripathi IG % 0.5 % Normal 0.0-0.5 [facility] Comment on above: Performed By: #### C BC ####[facility] Eyotwszrhd484[address] [place], [place] [address]DrKianna Tripathi LYMPH # 2.1 103/ul Normal 1.2-3.8 [facility] Comment on above: Performed By: #### C BC ####[facility] Qquqrmnhxn943[address] [place], [place] [address]DrKianna Tripathi Lymphocytes/100 WBC (Bld) 23.5 % Normal 20.5-60.0 [facility] Comment on above: Performed By: #### C BC ####[facility] Mlxxoqvitr15[address] [place], [place] [address]DrKianna Tripathi MANUAL DIFF REQ NO Normal [facility] Comment on above: Performed By: #### C BC ####[facility] Zpkpcmrjxd496[address] [place], [place] [address]DrKianna Tripathi MCH (RBC) [Entitic mass] 29.4 pg Normal 26.7-34.0 [facility] Comment on above: Performed By: #### C BC ####[facility] Yhiytdveoc4034 [place] [address]Dr. Airam Deuce MCHC (RBC) [Mass/Vol] 30.4 g/dL Normal 29.9-35.2 [facility] Comment on above: Performed By: #### C BC ####[facility] Qzjoqktcam6380 [place] [address]Dr. Airam Tripathi MCV (RBC) [Entitic vol] 96.6 fL Normal 81.0-99.0 [facility] Comment on above: Performed By: #### C BC ####[facility] Ekadaatksp3536 [place] [address]DrKianna Tripathi MONO # 0.6 103/ul Normal 0.3-0.8 [facility] Comment on above: Performed By: #### C BC ####[facility] Rxjufmwqnc2650 [place] [address]Dr. Airam Tripathi Monocytes/100 WBC (Bld) 6.4 % Normal 1.7-12.0 [facility] Comment on above: Performed By: #### C BC ####[facility] Gxucumspab655[address] [place], [place] [address]Dr. Airam Tripathi NEUT # 5.8 103/ul Normal 1.4-6.5 [facility] Comment on above: Performed By: #### C BC ####[facility] Pcawjsdgaz[address] [place], [place] [address]Dr. Airam Tripathi Neutrophils/100 WBC (Bld) 65.6 % Normal 43.0-75.0 [facility] Comment on above: Performed By: #### C BC ####[facility] Pgnkojtlpk206[address] [place], [place] [address]DrKianna Tripathi Platelet mean volume (Bld) [Entitic vol] 9.2 fL Critically low 9.5-13.5 [facility] Comment on above: Performed By: #### C BC ####[facility] Kuzkwbabpo[address] [place], [place] [address]Dr. Airam Tripathi PLT 338 103/ul Normal 150-450 [facility] Comment on above: Performed By: #### C BC ####[facility] Qhrhisjjlg9902 [place] [address]Dr. Airam Deuce RBC 3.54 106/ul Critically low 4.20-5.40 [facility] Comment on above: Performed By: #### C BC ####[facility] Eczvivdbtr1523 [place] [address]Dr. Selenaneil Deuce WBC 8.9 103/ul Normal 4.0-11.0 [facility] Comment on above: Performed By: #### C BC ####[facility] Eqijkmlmjg8496 [place] [address]Dr. Airam Deuce MG MAMM SCREEN 3D GUMARO CADon 12-30-2021 MG MAMM SCREEN 3D GUMARO CAD Normal [facility] PROF 14(COMP METB)on 022 Albumin [Mass/Vol] 3.6 g/dL Normal 3.4-5.0 [facility] Comment on above: Performed By: #### C MP ####[facility] Yfnhvypirf5816 [place] [address]Dr. Airam Tripathi Albumin/Globulin [Mass ratio] 1.1 {ratio} Normal [facility] Comment on above: Performed By: #### C MP ####[facility] Gupdextpjb8229 [place] [address]DrKianna Tirpathi ALP [Catalytic activity/Vol] 117 U/L Critically high 46-116 [facility] Comment on above: Performed By: #### C MP ####[facility] Xhfmhxtxgu8005 [place] [address]DrKianna Tripathi ALT [Catalytic activity/Vol] 26 U/L Normal 14-59 [facility] Comment on above: Performed By: #### C MP ####[facility] Wgxvtqaebi3487 [place] [address]DrKianna Tripathi Anion gap [Moles/Vol] 11.2 mmol/L Normal [facility] Comment on above: Performed By: #### C MP ####[facility] Abqwqvhcrm8149 [place] [address]Dr. Airam Tripathi AST [Catalytic activity/Vol] 29 U/L Normal 15-37 [facility] Comment on above: Performed By: #### C MP ####[facility] Djrxkwocjc8387 [place] [address]Dr. Airam Tripathi Bilirubin [Mass/Vol] 0.3 mg/dL Normal 0.2-1.0 [facility] Comment on above: Performed By: #### C MP ####[facility] Ewoxnzvpfp743[address] [place], [place] [address]Dr. Airam Tripathi Calcium [Mass/Vol] 9.1 mg/dL Normal 8.5-10.1 [facility] Comment on above: Performed By: #### C MP ####[facility] Koikcjregb984[address] [place], [place] [address]Dr. Airam Tripathi Chloride [Moles/Vol] 101 mmol/L Normal 98-107 [facility] Comment on above: Performed By: #### C MP ####[facility] Kksismomxo170[address] [place], [place] [address]Dr. Airam Tripathi CO2 [Moles/Vol] 26.8 mmol/L Normal 21.0-32.0 [facility] Comment on above: Performed By: #### C MP ####[facility] Alygokfqxm226607 [address] [place], [place] [address]Dr. Airam Tripathi Creatinine [Mass/Vol] 1.56 mg/dL Critically high 0.55-1.02 [facility] Comment on above: Performed By: #### C MP ####[facility] Ckxnwqbpvb1452 [place] [address]Dr. Airam Deuce EGFR-AF ROMANIAN 41 mL/min/1.73m2 Critically low >=60 [facility] Comment on above: Performed By: #### C MP ####[facility] Zkbchhloyd689207 [address] [place], [place] [address]Dr. Airam Deuce EGFR-NON AF ROMANIAN 34 mL/min/1.73m2 Critically low >=60 [facility] Comment on above: Performed By: #### C MP ####[facility] Dtvrefjxdo285007 [address] [place], [place] [address]Dr. Airam Tripathi Globulin (S) [Mass/Vol] 3.3 g/dL Normal [facility] Comment on above: Performed By: #### C MP ####[facility] Ckanxvbmkb7520 [place] [address]Dr. Airam Tripathi Glucose [Mass/Vol] 84 mg/dL Normal 74-106 [facility] Comment on above: Performed By: #### C MP ####[facility] Suoqdrgomk4839[address] [place], [place] [address]Dr. Airam Tripathi Potassium [Moles/Vol] 5.0 mmol/L Normal 3.5-5.1 [facility] Comment on above: Performed By: #### C MP ####[facility] Ewqymdkyxr067[address] [place], [place] [address]Dr. Airam Tripathi Protein [Mass/Vol] 6.9 g/dL Normal 6.4-8.2 [facility] Comment on above: Performed By: #### C MP ####[facility] Qaqhrvqbov787[address] [place], [place] [address]Dr. Airam Tripathi Sodium [Moles/Vol] 134 mmol/L Critically low 136-145 [facility] Comment on above: Performed By: #### C MP ####[facility] Lqekdaxbla229607 [address] [place], [place] [address]Dr. Airam Tripathi Urea nitrogen [Mass/Vol] 28.0 mg/dL Critically high 7.0-18.0 [facility] Comment on above: Performed By: #### C MP ####[facility] Ygknaxxqvd254307 [address] [place], [place] [address]Dr. Airam Tripathi Urea nitrogen/Creatinine [Mass ratio] 17.9 mg/mg Normal [facility] Comment on above: Performed By: #### C MP ####[facility] Odoywlkijy738907 [address] [place], [place] [address]Dr. Airam Tripathi OSMOLALITYon 12-24-2021 Osmolality [Osmolality] 287 mosm/kg Normal 275-295 [facility] Comment on above: Performed By: #### O SMO ####[facility] Skhmxpmugd616707 [address] [place], [place] [address]Dr. Airam Tripathi CBC AUTO DIFFon 12-22-2021 BASO # 0.0 103/ul Normal 0.0-0.1 [facility] Comment on above: Performed By: #### C BC ####[facility] Qexgzltprh5588 [place] [address]Dr. Airam Tripathi Basophils/100 WBC (Bld) 0.5 % Normal 0.2-2.0 [facility] Comment on above: Performed By: #### C BC ####[facility] Afvgtoyjgf694107 [address] [place], [place] [address]Dr. Airam Tripathi EO # 0.4 103/ul Normal 0.0-0.7 [facility] Comment on above: Performed By: #### C BC ####[facility] Tjjoihoyfb785[address] [place], [place] [address]Dr. Airam Tripathi Eosinophils/100 WBC (Bld) 6.4 % Normal 0.9-7.0 [facility] Comment on above: Performed By: #### C BC ####[facility] Wujbghqbdp425[address] [place], [place] [address]Dr. Airam Tripathi Erythrocyte distribution width (RBC) [Ratio] 13.2 % Normal 11.0-15.0 [facility] Comment on above: Performed By: #### C BC ####[facility] Pfpfyoijdf869107 [address] [place], [place] [address]Dr. Airam Tripathi Hematocrit (Bld) [Volume fraction] 32.2 % Critically low 36.0-48.0 [facility] Comment on above: Performed By: #### C BC ####[facility] Hznaobjjsd060807 [address] [place], [place] [address]Dr. Airam Tripathi Hemoglobin (Bld) [Mass/Vol] 10.1 g/dL Critically low 12.0-16.0 [facility] Comment on above: Performed By: #### C BC ####[facility] Gdbtqauqac532[address] [place], [place] [address]Dr. Airam Tripathi IG # 0.03 10e3/ul Normal 0.00-0.03 [facility] Comment on above: Performed By: #### C BC ####[facility] Uwbauwgueh9715 [place] [id number]. Airam Tripathi IG % 0.5 % Normal 0.0-0.5 [facility] Comment on above: Performed By: #### C BC ####[facility] Xkwnilaypi7002 [place] [address]Dr. Airam Deuce LYMPH # 1.3 103/ul Normal 1.2-3.8 [facility] Comment on above: Performed By: #### C BC ####[facility] Hnteolgvde3981 [place] [address]Dr. Airam Deuce Lymphocytes/100 WBC (Bld) 20.5 % Normal 20.5-60.0 [facility] Comment on above: Performed By: #### C BC ####[facility] Kxhumkbhip5378 [place] [address]Dr. Airam Deuce MANUAL DIFF REQ NO Normal [facility] Comment on above: Performed By: #### C BC ####[facility] Dfxduxtxrr5189 [place] [address]Dr. Airam Deuce MCH (RBC) [Entitic mass] 30.1 pg Normal 26.7-34.0 [facility] Comment on above: Performed By: #### C BC ####[facility] Hxjlhxzwqi616[address] [place], [place] [address]Dr. Airam Tripathi MCHC (RBC) [Mass/Vol] 31.4 g/dL Normal 29.9-35.2 [facility] Comment on above: Performed By: #### C BC ####[facility] Pysmtlkxlb7595 [place] [address]Dr. Airam Tripathi MCV (RBC) [Entitic vol] 95.8 fL Normal 81.0-99.0 [facility] Comment on above: Performed By: #### C BC ####[facility] Odxpvichhb986[address] [place], [place] [address]Dr. Airam Deuce MONO # 0.5 103/ul Normal 0.3-0.8 [facility] Comment on above: Performed By: #### C BC ####[facility] Kldaaqyabn7283 [place] [id number]. Airam Tripathi Monocytes/100 WBC (Bld) 7.4 % Normal 1.7-12.0 [facility] Comment on above: Performed By: #### C BC ####[facility] Rdubpegusi5875 [place] [phone]. Airam Tripathi NEUT # 3.9 103/ul Normal 1.4-6.5 [facility] Comment on above: Performed By: #### C BC ####[facility] Sykzfwxpxd8181 [place] [address]Dr. Airam Tripathi Neutrophils/100 WBC (Bld) 64.7 % Normal 43.0-75.0 [facility] Comment on above: Performed By: #### C BC ####[facility] Iwpnctsclq6105 [place] [address]Dr. Airam Tripathi Platelet mean volume (Bld) [Entitic vol] 9.2 fL Critically low 9.5-13.5 [facility] Comment on above: Performed By: #### C BC ####[facility] Uwouvskwfn1318 [place] [address]Dr. Airam Tripathi PLT 309 103/ul Normal 150-450 [facility] Comment on above: Performed By: #### C BC ####[facility] Rovvrbpgqg6114 [place] [address]Dr. Airam Tripathi RBC 3.36 106/ul Critically low 4.20-5.40 [facility] Comment on above: Performed By: #### C BC ####[facility] Jprtznsfcw552107 [address] [place], [place] [address]Dr. Airam Tripathi WBC 6.1 103/ul Normal 4.0-11.0 [facility] Comment on above: Performed By: #### C BC ####[facility] Yekpbecmos912007 [address] [place], [place] [address]Dr. Airam Deuce PROF 14(COMP METB)on 022 Albumin [Mass/Vol] 3.2 g/dL Critically low 3.4-5.0 [facility] Comment on above: Performed By: #### C MP ####[facility] Ykzpkieies7623 [place] [address]Dr. Airam Tripathi Albumin/Globulin [Mass ratio] 1.1 {ratio} Normal [facility] Comment on above: Performed By: #### C MP ####[facility] Lxoyktknkd4158 [place] [address]Dr. Airam Deuce ALP [Catalytic activity/Vol] 123 U/L Critically high 46-116 [facility] Comment on above: Performed By: #### C MP ####[facility] Jrxxzauaig325607 [address] [place], [place] [address]Dr. Airam Deuce ALT [Catalytic activity/Vol] 26 U/L Normal 14-59 [facility] Comment on above: Performed By: #### C MP ####[facility] Ddmlzyrkxe753207 [address] [place], [place] [address]Dr. Airam Tripathi Anion gap [Moles/Vol] 14.5 mmol/L Normal [facility] Comment on above: Performed By: #### C MP ####[facility] Ziljegihdq859407 [address] [place], [place] [address]Dr. Selenaneil Tripathi AST [Catalytic activity/Vol] 23 U/L Normal 15-37 [facility] Comment on above: Performed By: #### C MP ####[facility] Ofqgagehrm908107 [address] [place], [place] [address]Dr. Airam Tripathi Bilirubin [Mass/Vol] 0.3 mg/dL Normal 0.2-1.0 [facility] Comment on above: Performed By: #### C MP ####[facility] Yonsovagot857107 [address] [place], [place] [address]Dr. Airam Tripathi Calcium [Mass/Vol] 8.2 mg/dL Critically low 8.5-10.1 [facility] Comment on above: Performed By: #### C MP ####[facility] Dbvusrybeh085007 [address] [place], [place] [address]Dr. Airam Tripathi Chloride [Moles/Vol] 102 mmol/L Normal 98-107 [facility] Comment on above: Performed By: #### C MP ####[facility] Iaocwbgtme024707 [address] [place], [place] [address]Dr. Airam Tripathi CO2 [Moles/Vol] 23.2 mmol/L Normal 21.0-32.0 [facility] Comment on above: Performed By: #### C MP ####[facility] Hyhcyhdlot7561 [place] [address]Dr. Airam Tripathi Creatinine [Mass/Vol] 1.98 mg/dL Critically high 0.55-1.02 [facility] Comment on above: Performed By: #### C MP ####[facility] Vqbiqbuslo9903 [place] [address]Dr. Airam Tripathi EGFR-AF ROMANIAN 31 mL/min/1.73m2 Critically low >=60 [facility] Comment on above: Performed By: #### C MP ####[facility] Orikvjzsjf6172 [place] [address]Dr. Airam Deuce EGFR-NON AF ROMANIAN 26 mL/min/1.73m2 Critically low >=60 [facility] Comment on above: Performed By: #### C MP ####[facility] Uslsmumfge37450[address] [place], [place] [address]Dr. Airam Deuce Globulin (S) [Mass/Vol] 3.0 g/dL Normal [facility] Comment on above: Performed By: #### C MP ####[facility] Cllgrlmrmh7788 [place] [address]Dr. Airam Deuce Glucose [Mass/Vol] 131 mg/dL Critically high 74-106 [facility] Comment on above: Performed By: #### C MP ####[facility] Ioqicjdjak241307 [address] [place], [place] [address]Dr. Airam Deuce Potassium [Moles/Vol] 4.7 mmol/L Normal 3.5-5.1 [facility] Comment on above: Performed By: #### C MP ####[facility] Hngrwzwlas51990[address] [place], [place] [address]Dr. Airam Deuce Protein [Mass/Vol] 6.2 g/dL Critically low 6.4-8.2 [facility] Comment on above: Performed By: #### C MP ####[facility] Bdwewbaxdt111507 [address] [place], [place] [address]Dr. Airam Tripathi Sodium [Moles/Vol] 135 mmol/L Critically low 136-145 [facility] Comment on above: Performed By: #### C MP ####[facility] Wlkhmjifrt717[address] [place], [place] [address]Dr. Airam Tripathi Urea nitrogen [Mass/Vol] 37.0 mg/dL Critically high 7.0-18.0 [facility] Comment on above: Performed By: #### C MP ####[facility] Hmqdaisris665907 [address] [place], [place] [address]Dr. Airam Tripathi Urea nitrogen/Creatinine [Mass ratio] 18.7 mg/mg Normal [facility] Comment on above: Performed By: #### C MP ####[facility] Foumadzjwz232207 [address] [place], [place] [address]Dr. Airam Tripathi OSMOLALITYon 12-18-2021 Osmolality [Osmolality] 271 mosm/kg Critically low 275-295 [facility] Comment on above: Performed By: #### O SMO ####[facility] Awwkopvdxu490507 [address] [place], [place] [address]Dr. Airam Tripathi CBC AUTO DIFFon 12-16-2021 BASO # 0.0 103/ul Normal 0.0-0.1 [facility] Comment on above: Performed By: #### C BC ####[facility] Mrjtuqstfl410507 [address] [place], [place] [address]Dr. Airam Deuce Basophils/100 WBC (Bld) 0.6 % Normal 0.2-2.0 [facility] Comment on above: Performed By: #### C BC ####[facility] Avktgagixr676707 [address] [place], [place] [address]Dr. Airam Deuce EO # 0.1 103/ul Normal 0.0-0.7 [facility] Comment on above: Performed By: #### C BC ####[facility] Jkzkvkdeaa252807 [address] [place], [place] [address]Dr. Airam Deuce Eosinophils/100 WBC (Bld) 2.1 % Normal 0.9-7.0 [facility] Comment on above: Performed By: #### C BC ####[facility] Ulhuztnreh6227 [place] [address]Dr. Airam Tripathi Erythrocyte distribution width (RBC) [Ratio] 13.1 % Normal 11.0-15.0 [facility] Comment on above: Performed By: #### C BC ####[facility] Hkecigqmpa3224 [place] [address]Dr. Airam Tripathi Hematocrit (Bld) [Volume fraction] 33.8 % Critically low 36.0-48.0 [facility] Comment on above: Performed By: #### C BC ####[facility] Rtczejnxnz4215 [place] [address]Dr. Airam Tripathi Hemoglobin (Bld) [Mass/Vol] 10.7 g/dL Critically low 12.0-16.0 [facility] Comment on above: Performed By: #### C BC ####[facility] Rjpchirrzs026507 [address] [place], [place] [address]Dr. Airam Tripathi IG # 0.02 10e3/ul Normal 0.00-0.03 [facility] Comment on above: Performed By: #### C BC ####[facility] Pycrjqecwb747807 [address] [place], [place] [address]Dr. Airam Tripathi IG % 0.3 % Normal 0.0-0.5 [facility] Comment on above: Performed By: #### C BC ####[facility] Rdblzccanq996907 [address] [place], [place] [address]Dr. Airam Tripathi LYMPH # 1.2 103/ul Normal 1.2-3.8 [facility] Comment on above: Performed By: #### C BC ####[facility] Snwxjonvur249707 [address] [place], [place] [address]Dr. Airam Tripathi Lymphocytes/100 WBC (Bld) 17.3 % Critically low 20.5-60.0 [facility] Comment on above: Performed By: #### C BC ####[facility] Xklnbnkgxn949[address] [place], [place] [address]Dr. Airam Tripathi MANUAL DIFF REQ NO Normal [facility] Comment on above: Performed By: #### C BC ####[facility] Tjplgvvrqy3471 [place] [phone]. Airam Tripathi MCH (RBC) [Entitic mass] 30.2 pg Normal 26.7-34.0 [facility] Comment on above: Performed By: #### C BC ####[facility] Fcdaegmxcv8146 [place] [phone]. Airam Tripathi MCHC (RBC) [Mass/Vol] 31.7 g/dL Normal 29.9-35.2 [facility] Comment on above: Performed By: #### C BC ####[facility] Iwcgiylrmr9278 [place] [phone]. Airam Tripathi MCV (RBC) [Entitic vol] 95.5 fL Normal 81.0-99.0 [facility] Comment on above: Performed By: #### C BC ####[facility] Ukmuftesku2513[address] [place], [place] [address]Dr. Airam Deuce MONO # 0.5 103/ul Normal 0.3-0.8 [facility] Comment on above: Performed By: #### C BC ####[facility] Wuantcmtlh6302 [place] [address]Dr. Airam Tripathi Monocytes/100 WBC (Bld) 6.8 % Normal 1.7-12.0 [facility] Comment on above: Performed By: #### C BC ####[facility] Sxkuumkjbn212[address] [place], [place] [address]Dr. Airam Tripathi NEUT # 4.9 103/ul Normal 1.4-6.5 [facility] Comment on above: Performed By: #### C BC ####[facility] Jdqnexpwjc710[address] [place], [place] [address]Dr. Airam Deuce Neutrophils/100 WBC (Bld) 72.9 % Normal 43.0-75.0 [facility] Comment on above: Performed By: #### C BC ####[facility] Ocmkqpukbv23[address] [place], [place] [address]Dr. Airam Tripathi Platelet mean volume (Bld) [Entitic vol] 9.0 fL Critically low 9.5-13.5 [facility] Comment on above: Performed By: #### C BC ####[facility] Xahttfyeix3681 [place] [phone]. Airam Tripathi PLT 297 103/ul Normal 150-450 [facility] Comment on above: Performed By: #### C BC ####[facility] Hjiorvuoju1816 [place] [phone]. Airam Tripathi RBC 3.54 106/ul Critically low 4.20-5.40 [facility] Comment on above: Performed By: #### C BC ####[facility] Thhuswvaha6026 [place] [phone]. Airam Tripathi WBC 6.8 103/ul Normal 4.0-11.0 [facility] Comment on above: Performed By: #### C BC ####[facility] Utoheuvrgg8564 [place] [address]Dr. Airam Tripathi PROF 14(COMP METB)on 022 Albumin [Mass/Vol] 3.2 g/dL Critically low 3.4-5.0 [facility] Comment on above: Performed By: #### C MP ####[facility] Ybelxeydse5966 [place] [phone]. Airam Deuce Albumin/Globulin [Mass ratio] 1.0 {ratio} Normal [facility] Comment on above: Performed By: #### C MP ####[facility] Lsvwsyxkci6808 [place] [address]Dr. Airam Tripathi ALP [Catalytic activity/Vol] 109 U/L Normal 46-116 [facility] Comment on above: Performed By: #### C MP ####[facility] Cespvcrefw5232 [place] [phone]. Airam Tripathi ALT [Catalytic activity/Vol] 23 U/L Normal 14-59 [facility] Comment on above: Performed By: #### C MP ####[facility] Zxitwrcxvg4305 [place] [phone]. Airam Tripathi Anion gap [Moles/Vol] 11.6 mmol/L Normal [facility] Comment on above: Performed By: #### C MP ####[facility] Rvhejeetcb0614 [place] [phone]. Airam Tripathi AST [Catalytic activity/Vol] 24 U/L Normal 15-37 [facility] Comment on above: Performed By: #### C MP ####[facility] Bsvoopxczm8767 [place] [phone]. Airam Tripathi Bilirubin [Mass/Vol] 0.2 mg/dL Normal 0.2-1.0 [facility] Comment on above: Performed By: #### C MP ####[facility] Upxznhvipr1594 [place] [phone]. Airam Tripathi Calcium [Mass/Vol] 8.6 mg/dL Normal 8.5-10.1 [facility] Comment on above: Performed By: #### C MP ####[facility] Vfvjutxyie0352 [place] [phone]. Airam Tripathi Chloride [Moles/Vol] 100 mmol/L Normal 98-107 [facility] Comment on above: Performed By: #### C MP ####[facility] Baltooaxal0224 [place] [phone]. Airam Tripathi CO2 [Moles/Vol] 24.7 mmol/L Normal 21.0-32.0 [facility] Comment on above: Performed By: #### C MP ####[facility] Mfriouhfer6249 [place] [phone]. Airam Tripathi Creatinine [Mass/Vol] 1.11 mg/dL Critically high 0.55-1.02 [facility] Comment on above: Performed By: #### C MP ####[facility] Hbueudizil6840 [place] [phone]. Airam Tripathi EGFR-AF ROMANIAN >60 Normal >=60 [facility] Comment on above: Performed By: #### C MP ####[facility] Yhrlcrctbn8027 [place] [phone]. Airam Tripathi EGFR-NON AF ROMANIAN 50 mL/min/1.73m2 Critically low >=60 [facility] Comment on above: Performed By: #### C MP ####[facility] Rjpkwrhxmo9944 [place] [address]Dr. Airam Tripathi Globulin (S) [Mass/Vol] 3.1 g/dL Normal [facility] Comment on above: Performed By: #### C MP ####[facility] Bwloaurzrw499[address] [place], [place] [address]Dr. Airam Tripathi Glucose [Mass/Vol] 79 mg/dL Normal 74-106 [facility] Comment on above: Performed By: #### C MP ####[facility] Ivvdnwtbwk885207 [address] [place], [place] [address]Dr. Airam Tripathi Potassium [Moles/Vol] 5.3 mmol/L Critically high 3.5-5.1 [facility] Comment on above: Performed By: #### C MP ####[facility] Jncljnaozy2599[address] [place], [place] [address]Dr. Airam Tripathi Protein [Mass/Vol] 6.3 g/dL Critically low 6.4-8.2 [facility] Comment on above: Performed By: #### C MP ####[facility] Udnwrinjvx737[address] [place], [place] [address]Dr. Airam Tripathi Sodium [Moles/Vol] 131 mmol/L Critically low 136-145 [facility] Comment on above: Performed By: #### C MP ####[facility] Tdinfvypph176707 [address] [place], [place] [address]Dr. Airam Tripathi Urea nitrogen [Mass/Vol] 20.0 mg/dL Critically high 7.0-18.0 [facility] Comment on above: Performed By: #### C MP ####[facility] Qxyovhyrtt488007 [address] [place], [place] [address]Dr. Airam Tripathi Urea nitrogen/Creatinine [Mass ratio] 18.0 mg/mg Normal [facility] Comment on above: Performed By: #### C MP ####[facility] Qvxaoafyrw005107 [address] [place], [place] [address]Dr. Airam Tripathi OSMOLALITYon 12-09-2021 Osmolality [Osmolality] 279 mosm/kg Normal 275-295 [facility] Comment on above: Performed By: #### O SMO ####[facility] Qxzkmuytpl1201 [place] [address]Dr. Airam Tripathi CBC AUTO DIFFon 12-07-2021 BASO # 0.0 103/ul Normal 0.0-0.1 [facility] Comment on above: Performed By: #### C BC ####[facility] Fwqndhbonj815[address] [place], [place] [address]Dr. Selenaneil Tripathi Basophils/100 WBC (Bld) 0.5 % Normal 0.2-2.0 [facility] Comment on above: Performed By: #### C BC ####[facility] Jigrquhkjf279707 [address] [place], [place] [address]Dr. Airam Deuce EO # 0.4 103/ul Normal 0.0-0.7 [facility] Comment on above: Performed By: #### C BC ####[facility] Ozekosgyyk264[address] [place], [place] [address]Dr. Selenaneil Tripathi Eosinophils/100 WBC (Bld) 6.3 % Normal 0.9-7.0 [facility] Comment on above: Performed By: #### C BC ####[facility] Jjzyzamess817[address] [place], [place] [address]Dr. Selenaneil Tripathi Erythrocyte distribution width (RBC) [Ratio] 13.3 % Normal 11.0-15.0 [facility] Comment on above: Performed By: #### C BC ####[facility] Xkocohctbr1214[address] [place], [place] [address]Dr. Selenaneil Tripathi Hematocrit (Bld) [Volume fraction] 29.5 % Critically low 36.0-48.0 [facility] Comment on above: Performed By: #### C BC ####[facility] Vvadekxlfh09750[address] [place], [place] [address]Dr. Airam Tripathi Hemoglobin (Bld) [Mass/Vol] 9.1 g/dL Critically low 12.0-16.0 [facility] Comment on above: Performed By: #### C BC ####[facility] Wvnbhtwwtg090[address] [place], [place] [address]Dr. Airam Tripathi IG # 0.04 10e3/ul Critically high 0.00-0.03 [facility] Comment on above: Performed By: #### C BC ####[facility] Qpaccmudlq8523 [place] [phone]. Airam Tripathi IG % 0.7 % Critically high 0.0-0.5 [facility] Comment on above: Performed By: #### C BC ####[facility] [address] [place] [phone]. Airam Tripathi LYMPH # 1.3 103/ul Normal 1.2-3.8 [facility] Comment on above: Performed By: #### C BC ####[facility] Mfdwroqarb[address] [place] [phone]. Airam Tripathi Lymphocytes/100 WBC (Bld) 20.9 % Normal 20.5-60.0 [facility] Comment on above: Performed By: #### C BC ####[facility] Spsvrgleca[address] [place], [place] [address]Dr. Airam Tripathi MANUAL DIFF REQ NO Normal [facility] Comment on above: Performed By: #### C BC ####[facility] Zffhniwqir[address] [place], [place] [address]Dr. Airam Tripathi MCH (RBC) [Entitic mass] 30.1 pg Normal 26.7-34.0 [facility] Comment on above: Performed By: #### C BC ####[facility] Qflbamviaw9[address] [place] [phone]. Airam Tripathi MCHC (RBC) [Mass/Vol] 30.8 g/dL Normal 29.9-35.2 [facility] Comment on above: Performed By: #### C BC ####[facility] Tumxviay[address] [place], [place] [address]Dr. Airam Tripathi MCV (RBC) [Entitic vol] 97.7 fL Normal 81.0-99.0 [facility] Comment on above: Performed By: #### C BC ####[facility] Tmpydrtkel[address] [place] [phone]. Airam Deuce MONO # 0.4 103/ul Normal 0.3-0.8 [facility] Comment on above: Performed By: #### C BC ####[facility] Lzhjzxflan52[address] [place] [phone]. Airam Tripathi Monocytes/100 WBC (Bld) 6.6 % Normal 1.7-12.0 [facility] Comment on above: Performed By: #### C BC ####[facility] Hbzahsybix52[address] [place] [phone]. Airam Tripathi NEUT # 4.0 103/ul Normal 1.4-6.5 [facility] Comment on above: Performed By: #### C BC ####[facility] Vqjuonncro5[address] [place] [phone]. Airam Tripathi Neutrophils/100 WBC (Bld) 65.0 % Normal 43.0-75.0 [facility] Comment on above: Performed By: #### C BC ####[facility] [address]om[address]ui[address] [place] [address]Dr. Airam Tripathi Platelet mean volume (Bld) [Entitic vol] 9.4 fL Critically low 9.5-13.5 [facility] Comment on above: Performed By: #### C BC ####[facility] [address]xszzk[address] [place] [address]Dr. Airam Tripathi PLT 224 103/ul Normal 150-450 [facility] Comment on above: Performed By: #### C BC ####[facility] Ycgvdwvukj8[address] [place] [phone]. Airam Tripathi RBC 3.02 106/ul Critically low 4.20-5.40 [facility] Comment on above: Performed By: #### C BC ####[facility] Jvcesakaif[address] [place], [place] [address]Dr. Airam Tripathi WBC 6.1 103/ul Normal 4.0-11.0 [facility] Comment on above: Performed By: #### C BC ####[facility] Tcqgelgcmf[address] [place], [place] [address]Dr. Airam Tripathi PROF 14(COMP METB)on 022 Albumin [Mass/Vol] 2.8 g/dL Critically low 3.4-5.0 [facility] Comment on above: Performed By: #### C MP ####[facility] [address]zaxhtuyfc47[address] [place] [phone]. Airam Deuce Albumin/Globulin [Mass ratio] 1.1 {ratio} Normal [facility] Comment on above: Performed By: #### C MP ####[facility] Lviyvnxdac9177 [place] [phone]. Airam Deuce ALP [Catalytic activity/Vol] 116 U/L Normal 46-116 [facility] Comment on above: Performed By: #### C MP ####[facility] [address]ruzb[address] [place] [address]Dr. Airam Deuce ALT [Catalytic activity/Vol] 23 U/L Normal 14-59 [facility] Comment on above: Performed By: #### C MP ####[facility] Nqetmipthm[address] [place], [place] [address]Dr. Airam Tripathi Anion gap [Moles/Vol] 12.1 mmol/L Normal [facility] Comment on above: Performed By: #### C MP ####[facility] Qlgmpjwhao[address] [place], [place] [address]Dr. Airam Deuce AST [Catalytic activity/Vol] 23 U/L Normal 15-37 [facility] Comment on above: Performed By: #### C MP ####[facility] Pogylqfyxo[address] [place], [place] [address]Dr. Airam Tripathi Bilirubin [Mass/Vol] 0.2 mg/dL Normal 0.2-1.0 [facility] Comment on above: Performed By: #### C MP ####[facility] Wvgvaiuwkg[address] [place], [place] [address]Dr. Airam Tripathi Calcium [Mass/Vol] 8.1 mg/dL Critically low 8.5-10.1 [facility] Comment on above: Performed By: #### C MP ####[facility] Itinktvfyh[address] [place], [place] [address]Dr. Airam Tripathi Chloride [Moles/Vol] 105 mmol/L Normal 98-107 [facility] Comment on above: Performed By: #### C MP ####[facility] [address]qkwnddu[address] [place] [phone]. Airam Tripathi CO2 [Moles/Vol] 22.1 mmol/L Normal 21.0-32.0 [facility] Comment on above: Performed By: #### C MP ####[facility] Is[address]yomgyor[address] [place] [address]Dr. Airam Tripathi Creatinine [Mass/Vol] 1.06 mg/dL Critically high 0.55-1.02 [facility] Comment on above: Performed By: #### C MP ####[facility] [address]vebabj[address] [place] [address]Dr. Airam Tripathi EGFR-AF ROMANIAN >60 Normal >=60 [facility] Comment on above: Performed By: #### C MP ####[facility] Bj[address]utqmqp[address] [place] [address]Dr. Airam Deuce EGFR-NON AF ROMANIAN 53 mL/min/1.73m2 Critically low >=60 [facility] Comment on above: Performed By: #### C MP ####[facility] Uwophnuqlp[address] [place], [place] [address]Dr. Airam Deuce Globulin (S) [Mass/Vol] 2.6 g/dL Normal [facility] Comment on above: Performed By: #### C MP ####[facility] Fskbwjhdgr[address] [place], [place] [address]Dr. Airam Deuce Glucose [Mass/Vol] 109 mg/dL Critically high 74-106 [facility] Comment on above: Performed By: #### C MP ####[facility] [address]lynwjh[address] [place] [address]Dr. Airam Deuce Potassium [Moles/Vol] 4.2 mmol/L Normal 3.5-5.1 [facility] Comment on above: Performed By: #### C MP ####[facility] Gcfybkobok[address] [place], [place] [address]Dr. Airam Deuce Protein [Mass/Vol] 5.4 g/dL Critically low 6.4-8.2 [facility] Comment on above: Performed By: #### C MP ####[facility] Qfgpnzufmu5188 [place], [place] [address]Mp. Airam Tripathi Sodium [Moles/Vol] 135 mmol/L Critically low 136-145 [facility] Comment on above: Performed By: #### C MP ####[facility] Qykpshvnpq65[address] [place], [place] [address]Fl. Airam Tripathi Urea nitrogen [Mass/Vol] 15.0 mg/dL Normal 7.0-18.0 [facility] Comment on above: Performed By: #### C MP ####[facility] [address]ek[address] [place], [place] [address]Fw. Airam Tripathi Urea nitrogen/Creatinine [Mass ratio] 14.2 mg/mg Normal [facility] Comment on above: Performed By: #### C MP ####[facility] [address]qlklhdkhc6[address] [place], [place] [address]Eu. Airam Tripathi Operative Reporton Operative Report MR#: [id number] S [facility] Pt. Name: Mabel Moser Room #: 0C [...] subscapularis. 3. Right shoulder proximal biceps tenotomy. SUPERVISORY GEOGRAPHER: Alex Serra M.D. ANESTHESIA: General. INDICATIONS: The [...] Reza M.D. Date Trans: 08/19/2021 11:37 A/carter [id number] cc: Angle Santana M.D. [address] [address] Normal [facility] POC GLUCOSE LABon 08-19-2021 Glucose [Mass/Vol] 77 mg/dL Normal 70-100 [facility] Comment on above: Performed By: #### 8 5499 #### [facility] [address] 04-05-2021 CNPN Telephone (HEMASA) ----- MABEL MOSER ([id number]) 1960 F Date Time Provider Department 04/05/21 YEVGENIY FORD During your visit today, we recorded the following information about you: Chana Gallegos [facility] 04/05/2021 7:57 AM Signed Records faxed to the cancer center at [facility]. Patient to follow with Dr. Liu. [...] 40 mg by mouth once daily. - triamterene-hydrochloroth iazide (MAXZIDE) 75-50 mg per tablet Take 1 [...] Status:Closed by CHANA LEE on 04/05/21 Normal [facility] OBSOLETEon 01-11-2021 OBSOLETE Refill (HEMASA) ----- SHANTIMABEL Haynes ([id number]) 1960 F Date Time Provider Department 01/11/21 [...] kidney disease) stage 3, GFR 30-59 ml/min ([facility]) [N18.30] Order(s):cyanocobalamin 1,000 mcg/mLINJECT 1 ML INTRAMUSCULARLY ONCE EVERY MONTHDisp: 12 mLRfl: 0 Prescriptions as of 01/12/2021 - cyanocobalamin 1,000 mcg/mL INJECT 1 ML INTRAMUSCULARLY ONCE EVERY MONTH - desvenlafaxine ER (PRISTIQ) 50 mg 24 hr tablet Take 50 mg by mouth. - furosemide (LASIX) 40 mg tablet Take 40 mg by mouth once daily. - triamterene-hydrochloroth iazide (MAXZIDE) 75-50 mg per tablet Take 1 [...] by YEVGENIY FORD on 01/12/21 Normal [facility] Vital Signs Date Time Vital Sign Value Performing Clinician Facility 07-03-2023 12:00-0500 Body temperature 97.9 [degF] MD Angle Santana Work Phone: [facility] 07-03-2023 12:00-0500 Diastolic blood pressure 71 mm[Hg] MD Angle Santana Work Phone: [facility] 07-03-2023 12:00-0500 Heart rate 68 /min MD Angle Santana Work Phone: [facility] 07-03-2023 12:00-0500 Respiratory rate 16 /min MD Angle Santana Work Phone: [facility] 07-03-2023 12:00-0500 SaO2% (BldA) [Mass fraction] 100 % MD Angle Santana Work Phone: [facility] 07-03-2023 12:00-0500 Systolic blood pressure 121 mm[Hg] MD Angle Santana Work Phone: [facility] 07-03-2023 04:49-0500 Body weight 85.8 kg MD Angle Santana Work Phone: [facility] 06-30-2023 14:44-0500 Body height 157.48 cm MD Angle Santana Work Phone: [facility] 04-04-2023 16:20-0400 Body height 158.75 cm Donnieariel [employer] Other [facility] Other 04-04-2023 16:20-0400 Body mass index (BMI) [Ratio] 31.46 kg/m2 Raeann [employer] Other [facility] Other 04-04-2023 16:20-0400 Body temperature 98 [degF] Raeann [employer] Other [facility] Other 04-04-2023 16:20-0400 Body weight 79.29 kg Azariel Babybes Other [facility] Other 04-04-2023 16:20-0400 Diastolic blood pressure 81 mm[Hg] Azariel Babybes Other [facility] Other 04-04-2023 16:20-0400 Respiratory rate 18 /min Univaariel Casimiro Other [facility] Other 04-04-2023 16:20-0400 SaO2% (BldA) [Mass fraction] 98 % Raeann Kirkpatrick Other [facility] Other 04-04-2023 16:20-0400 Systolic blood pressure 133 mm[Hg] Raeann Kirkpatrick Other [facility] Other 10-28-2022 22:23-0400 Body temperature 97.4 [degF] MD Angle Santana Work Phone: [facility] 10-28-2022 22:00-0400 Diastolic blood pressure 74 mm[Hg] MD Angle Santana Work Phone: [facility] 10-28-2022 22:00-0400 Heart rate 72 /min MD Angle Santana Work Phone: [facility] 10-28-2022 22:00-0400 Respiratory rate 20 /min MD Angle Santana Work Phone: [facility] 10-28-2022 22:00-0400 SaO2% (BldA) [Mass fraction] 97 % MD Angle Santana Work Phone: [facility] 10-28-2022 22:00-0400 Systolic blood pressure 169 mm[Hg] MD Angle Santana Work Phone: [facility] 10-28-2022 17:54-0400 Body height 157.48 cm MD Angle Santana Work Phone: [facility] 10-28-2022 17:54-0400 Body weight 83.7 kg MD Angle Santana Work Phone: [facility] 09-27-2022 12:00-0400 Body height 158.75 cm Raeann Mishrajohnnie Other [facility] Other 09-27-2022 12:00-0400 Body mass index (BMI) [Ratio] 31.78 kg/m2 Azariel Mishras Other [facility] Other 09-27-2022 12:00-0400 Body temperature 96.1 [degF] Azariel Mishras Other [facility] Other 09-27-2022 12:00-0400 Body weight 80.11 kg Raeann Mishras Other [facility] Other 09-27-2022 12:00-0400 Diastolic blood pressure 82 mm[Hg] Raeann Mishras Other [facility] Other 09-27-2022 12:00-0400 Respiratory rate 18 /min Raeann Mishras Other [facility] Other 09-27-2022 12:00-0400 SaO2% (BldA) [Mass fraction] 99 % Raeann Mishras Other [facility] Other 09-27-2022 12:00-0400 Systolic blood pressure 140 mm[Hg] Raeann Mishras Other [facility] Other 04-12-2022 14:00-0400 Body height 158.75 cm Raeann Harrisonhous Other [facility] Other 04-12-2022 14:00-0400 Body mass index (BMI) [Ratio] 30.13 kg/m2 Azariel Bakhous Other [facility] Other 04-12-2022 14:00-0400 Body temperature 97.6 [degF] Aziz Bakhous Other [facility] Other 04-12-2022 14:00-0400 Body weight 75.93 kg Raeann Kirkpatrick Other [facility] Other 04-12-2022 14:00-0400 Diastolic blood pressure 95 mm[Hg] Raeann Kirkpatrick Other [facility] Other 04-12-2022 14:00-0400 Respiratory rate 18 /min Raeann Kirkpatrick Other [facility] Other 04-12-2022 14:00-0400 SaO2% (BldA) [Mass fraction] 98 % Raeann Kirkpatrick Other [facility] Other 04-12-2022 14:00-0400 Systolic blood pressure 175 mm[Hg] Raeann Kirkpatrick Other [facility] Other 06-16-2021 16:20-0500 Body height 158.75 cm Los Rascongerald Other [facility] Other 06-16-2021 16:20-0500 Body mass index (BMI) [Ratio] 30.88 kg/m2 Los Grissom Other [facility] Other 06-16-2021 16:20-0500 Body temperature 96.4 [degF] Los Grissom Other [facility] Other 06-16-2021 16:20-0500 Body weight 77.84 kg Los Grissom Other [facility] Other 06-16-2021 16:20-0500 Diastolic blood pressure 88 mm[Hg] Los Grissom Other [facility] Other 06-16-2021 16:20-0500 Respiratory rate 18 /min Los Grissom Other [facility] Other 06-16-2021 16:20-0500 SaO2% (BldA) [Mass fraction] 99 % Los Grissom Other [facility] Other 06-16-2021 16:20-0500 Systolic blood pressure 137 mm[Hg] Los Grissom Other [facility] Other Encounters Encounter Date Encounter Type Care Provider Facility Start: 08-16-2023 End: 08-16-2023 ambulatory MACIE [facility] Start: 08-01-2023 Evaluation and management of inpatient [facility] Start: 08-01-2023 Evaluation and management of inpatient [facility] Start: 07-31-2023 Evaluation and management of inpatient [facility] Start: 07-31-2023 Evaluation and management of inpatient [facility] Start: 07-31-2023 Evaluation and management of inpatient JUDAH QUIROZ [facility] Start: 07-28-2023 Evaluation and management of inpatient RACHEL NOEL [facility] Start: 07-28-2023 End: 08-03-2023 Evaluation and management of inpatient ANGLE HOKristen [facility] Start: 07[facility]: 07-11-2023 End: 07-11-2023 ambulatory Raeann Kirkpatrick Other [facility] Other Start: 07-11-2023 Telephone encounter Raeann Kirkpatrick [facility] Start: 06-29-2023 End: 07-03-2023 Evaluation and management of inpatient Jimsrikanth Randhawa Facility:[facility] Start: 06-29-2023 End: 07-03-2023 Evaluation and management of inpatient MD Angle Santana Work Phone: [facility] Work Phone: Start: 04-04-2023 End: 04-04-2023 ambulatory Aziz Bakhous Other [facility] Other Start: 04-04-2023 Office outpatient visit 25 minutes Aziz Bakhous [facility] Start: 04-03-2023 End: 04-03-2023 ambulatory Aziz Bakhous Other [facility] Other Start: 04-03-2023 Telephone encounter Aziz Bakhous [facility] Start: 02-22-2023 End: 02[facility]22[facility]2023 [facility]: 02-16-2023 ambulatory DUNCAN DENNIS [facility] Start: 01-13-2023 End: [facility]: 12-15-2022 End: 12-16-2022 ambulatory [facility] Start: 12-12-2022 End: 12-12-2022 ambulatory Aziz Bakhous Other [facility] Other Start: 12-12-2022 Telephone encounter Aziz Bakhous [facility] Start: 12-08-2022 End: 12-08-2022 ambulatory Aziz Bakhous Other [facility] Other Start: 12-08-2022 Telephone encounter Aziz Bakhous [facility] Start: 11-30-2022 End: 11-30-2022 ambulatory [facility] Start: 11-22-2022 End: 11-22-[address] ANGLE SANTANA . Facility:[facility] Start: 11-22-2022 End: 11-22-2022 ambulatory SADIE PHOENIXMIPATHY . Facility:[facility] Start: 11-16-2022 End: 11-16-[address] ANGLE SANTANA . Facility:[facility] Start: 11-07-2022 End: 11-07-2022 ambulatory BENJIE MARCELOSUE [facility] Start: 11-04-2022 End: 11-05-2022 ambulatory SADIE PHOENIXMIPATHY . Facility:[facility] Start: 11-03-2022 End: 11-03-[address] ANGLE SANTANA . Facility:[facility] Start: 10-31-2022 ambulatory SANTOS ROUSSEAU . Facili ty:[facility] Start: 10-28-2022 End: 10-29-2022 Emergency department patient visit Favian Helm Facility:[facility] Start: 10-28-2022 End: 10-28-2022 Emergency department patient visit MD Angle Santana Work Phone: [facility] Work Phone: Start: 10-28-2022 End: 10-28-2022 ambulatory RHIANNON BERNARD [facility] Start: 10-27-2022 End: 10-28-2022 ambulatory SADIE PHOENIXMIPATHY . Facility:[facility] Start: 10-25-2022 End: 10-26-2022 Evaluation and management of inpatient DR ANGLE SANTANA . Facility:[facility] Start: 10-19-2022 End: 10-19-[address] ANGLE SANTANA . Facility:[facility] Start: 10-12-2022 End: 10-13-[address] ANGLE SANTANA . Facility:[facility] Start: 10-12-2022 End: 10-12-2022 ambulatory FELECIA MILIAN . Facility:[facility] Start: 10-11-2022 End: 10-11-2022 ambulatory SADIE PHOENIXMIPATHKristen . Facility:[facility] Start: 10-10-2022 End: 10-10-2022 ambulatory ZANDRA GONZALEZ [facility] Start: 10-05-2022 End: 10-07-[address] ANGLE SANTANA . Facility:[facility] Start: 10-05-2022 ambulatory FELECIA FORDMONICASrikanth . Facility: [facility] Start: 09-29-2022 End: 10-04-[address] ANGLE SANTANA . Facility:[facility] Start: 09-27-2022 End: 09-27-2022 ambulatory Raeann Kirkpatrick Other [facility] Other Start: 09-27-2022 Office outpatient visit 25 minutes Raeann Kirkpatrick [facility] [place] Start: 09-21-2022 End: 09-22-[address] ANGLE SANTANA . Facility:[facility] Start: 09-20-2022 End: 09-21-2022 ambulatory SADIE PHOENIXMICONSTANTINO . Facility:[facility] Start: 09-19-2022 End: 09-20-[address] ANGLE SANTANA . Facility:[facility] Start: 09-19-2022 End: 09-20-2022 ambulatory RAEANN KIRKPATRICK Facility:[facility] Start: 08-24-2022 End: 09-12-[address] ANGLE SANTANA . Facility:[facility] Start: 08-23-2022 End: 08-23-2022 ambulatory Sue Leiva Other [facility] Other Start: 08-23-2022 Office outpatient ne w 30 minutes Sue Leiva [facility] Start: 08-16-2022 End: 08-17-2022 ambulatory [...] Facility:[facility] Start: 04-12-2022 End: 04-12-2022 [facility] Other Start: 04-12-2022 Office outpatient visit 25 minutes Coariel Kirkpatrick [facility]ph[facility] [place] Start: 04-06-2022 ambulatory [...] Start: 01-10-2022 End: 01-11-2022 ambulatory Robert Johnston Facility:[facility] Start: 01-06-2022 End: 01-07-[address] ANGLE SANTANA . Facility:[facility] Start: 12-30-2021 End: 01-19-[address] ANGLE SANTANA . Facility:[facility] Start: 12-23-2021 End: 12-24-2021 ambulatory NNAMDI DEJESUS . Facility:[facility] Start: 12-07-2021 End: 12-22-[address] ANGLE SANTANA . Facility: Start: 12-07-2021 End: 12-07-[address] ANGLE SANTANA . Facility: Start: 08-19-2021 End: 08-20-2021 ambulatory CARLOS Deepak VARNERHN Facility:[facility] Start: 06-16-2021 End: 06-16-2021 ambulatory Los Grissom Other [facility] Other Start: 06-16-2021 Office outpatient visit 25 minutes Los Grissom [facility] Nephrology Start: 01-14-2019 End: 01-14-2019 Patient encounter procedure [facility] Start: 12-03-2018 End: 12-03-2018 Patient encounter procedure [facility] Procedures Date Procedure Procedure Detail Performing Clinician Start: 10-28-2022 CT of head without contrast MD Angle Santana Work Phone: Start: 10-28-2022 Plain chest X-ray MD Romero Work Phone: Start: 01-14-2019 DISCHARGE PATIENT NIRMAL Start: 01-14-2019 DIET NPO, NOW NIRMAL VICKYE G Start: 01-14-2019 FULL CODE NIRMAL Start: 01-14-2019 INITIATE OXYGEN THER APY PROTOCOL NIRMAL Start: 01-14-2019 NOTIFY PHYSICIAN (SPECIFY) NIRMAL Start: 01-14-2019 NURSING COMMUNICATION W DONNA Start: 01-14-2019 VERIFY INFORMED CONSENT NIRMAL Start: 01-14-2019 VITAL SIGNS NIRMAL Start: 12-03-2018 DISCHARGE PATIENT NIRMAL Start: 12-03-2018 DIET NPO, NOW NIRMAL VICKEY G Start: 12-03-2018 FULL CODE NIRMAL Start: 12-03-2018 INITIATE OXYGEN THER APY PROTOCOL NIRMAL Start: 12-03-2018 NOTIFY PHYSICIAN (SPECIFY) NIRMAL Start: 12-03-2018 NURSING COMMUNICATION W DONNA Start: 12-03-2018 VERIFY INFORMED CONSENT NIRMAL Start: 12-03-2018 VITAL SIGNS NIRMAL Plan of Treatment Date Care Activity Detail Author Start: 07-03-2023 [facility] Start: 06-29-2023 Hospital admission [facility] Start: 06-29-2023 Referral to validation engineer [facility] Blood chemistry [facility] Patient Education [facility] Work Phone: Patient referral [facility] Work Phone: Payers Date Payer Category Payer Medicare [id number] 2022 Self-pay [id number] 2017 Medicare [id number] 2017 Unknown [id number] 1960 Unknown [id number] 2.16.8 40.1.052020.3.579.2.173 1960 Unknown [id number] 2.16.8 40.1.760700.3.579.2.173 1962 Unknown [id number] 2.16.8 40.1.401231.3.579.2.647 1960 Unknown [id number] 2.16.8 40.1.709893.3.579.2.647 1960 Unknown [id number] 2.16.84 0.1.708374.3.579.2.593 1962 Unknown [id number] 2.16.84 0.1.339243.3.579.2.593 1962 Unknown [id number] 2.16.84 0.1.803552.3.579.2.593 1962 Unknown [id number] 2.16.84 0.1.546108.3.579.2.593 1962 Unknown [id number] 2.16.84 0.1.590362.3.579.2.593 1962 Unknown [id number] 2.16.84 0.1.742926.3.579.2.593 1962 Unknown [id number] 2.16.84 0.1.623322.3.579.2.593 1962 Unknown [id number] 2.16.84 0.1.263709.3.579.2.593 1962 Unknown [id number] 2.16.84 0.1.096205.3.579.2.593 1962 Unknown [id number] 2.16.84 0.1.133976.3.579.2.593 1962 Unknown [id number] 2.16.84 0.1.606641.3.579.2.593 1962 Unknown [id number] 2.16.84 0.1.518071.3.579.2.593 1962 Unknown [id number] 2.16.84 0.1.920744.3.579.2.593 1962 Unknown [id number] 2.16.84 0.1.289777.3.579.2.593 1962 Unknown [id number] 2.16.84 0.1.043542.3.579.2.593 1962 Unknown [id number] 2.16.84 0.1.920359.3.579.2.593 1962 Unknown [id number] 2.16.84 0.1.932187.3.579.2.593 1962 Unknown [id number] 2.16.84 0.1.289050.3.579.2.593 1962 Unknown [id number] 2.16.84 0.1.259176.3.579.2.593 1962 Unknown [id number] 2.16.84 0.1.658052.3.579.2.593 1962 Unknown [id number] 2.16.84 0.1.876469.3.579.2.593 1962 Unknown [id number] 2.16.84 0.1.897323.3.579.2.593 1962 Unknown [id number] 2.16.84 0.1.659691.3.579.2.593 1962 Unknown [id number] 2.16.84 0.1.881213.3.579.2.593 1962 Unknown [id number] 2.16.84 0.1.222936.3.579.2.593 1962 Unknown [id number] 2.16.84 0.1.580471.3.579.2.593 1962 Unknown [id number] 2.16.84 0.1.751195.3.579.2.593 1962 Unknown [id number] 2.16.84 0.1.801401.3.579.2.593 1962 Unknown [id number] 2.16.84 0.1.656694.3.579.2.593 1962 Unknown [id number] 2.16.84 0.1.949307.3.579.2.593 1962 Unknown [id number] 2.16.84 0.1.867991.3.579.2.593 1962 Unknown [id number] 2.16.84 0.1.537721.3.579.2.593 1962 Unknown [id number] 2.16.84 0.1.559648.3.579.2.593 1962 Unknown [id number] 2.16.84 0.1.193077.3.579.2.593 1962 Unknown [id number] 2.16.84 0.1.843002.3.579.2.593 1962 Unknown [id number] 2.16.84 [id number] 1960 Unknown [id number] 2.16.84 0.1.575709.3.579.2.593 1960 Unknown [id number] 2.16.84 0.1.592284.3.579.2.593 1960 Unknown [id number] 2.16.84 0.1.861589.3.579.2.593 1960 Unknown [id number] 2.16.84 0.1.233481.3.579.2.593 1960 Unknown [id number] 2.16.84 0.1.233385.3.579.2.593 1960 Unknown [id number] 2.16.84 0.1.324080.3.579.2.593 1960 Unknown [id number] 2.16.84 0.1.851985.3.579.2.593 1960 Unknown [id number] 2.16.84 0.1.433703.3.579.2.593 1960 Unknown [id number] 2.16.84 0.1.177364.3.579.2.593 1960 Unknown [id number] 2.16.84 0.1.237925.3.579.2.593 1957 Medicaid [id number] Unknown [id number] 2.1 [id number] Unknown A[employer] BC/BS [id number] Unknown [id number] 2.16.8 40.1.134383.3.579.2.531 Unknown [id number] 2.16.8 40.1.643275.3.579.2.531 Social History Date Type Detail Facility Unknown if ever smoked [facility] Other Sex Assigned At Sex Assigned At Bir th [facility] Start: 10-28-2022 End: 06-30-2023 Tobacco smoking status NHIS Never smoked tobacco (finding) [facility] Start: 1960 Sex Assigned At Female F [facility] Goals Date Patient Goal Desired Activity /State Functional Status Date Assessment Result Facility 07-03-2023 Functional status Patient at Baseline [facility] Work Phone: Mental Status Date Assessment Result Facility 07-03-2023 Cognitive function Cognitive Sta tus Patient at Baseline [facility] Work Phone: Clinical Notes 06-16-2021 to 08-16-2023 Note Date & Type Note Facility 08-16-2023 Note [place] Electrophysiology Consult Note Reason for visit: HFU for acute CHF HPI: Mabel Moser is a 63 y.o. year old with past medical history of CHF, CKD IV, CAD, hypertension, GERD, hypothyroidism, CVA, seizure disorder, pulmonary hypertension, hx of DVT on eliquis. patient was admitted to [facility] for acute decompensated CHF 184# on scale at home, was 172# at [facility] but she feels well and appears compensated She is seeing lymph edema clinic twice a week, has follow up with validation engineer next week She has taken her PRN bumex dose once since discharge because she felt as though she did not have a lot of urine output that day but has improved since She is doing much better following fluid restriction of about 3252-8159 mls / day [facility] discharge summary 08/03/23 Hospital course: Mabel Moser is an 63 y.o. female who came from home with Past medical history of CHF, CKD IV, CAD, hypertension, GERD, hypothyroidism, CVA, seizure disorder, pulmonary hypertension, hx of DVT on eliquis presents to [facility] as a direct admission from [facility] with fluid overload. Patient reports worsening bilateral lower extremity edema over the last week with 50 pound weight gain. During hospitalization, cardiology and nephrology were taken on board and patient was started on aggressive IV diuresis and was noted to have significant improvement in renal function. Considering patient's RENETTA on CKD, patient's blood pressure medications were readjusted to avoid any nephrotoxic agents and Coreg was added intermittently. Patient was discharged on Bumex dosing 3 times daily and was advised to follow-up with PCP, cardiology and nephrology at discharge. PMH: Past Medical History: Diagnosis Date Anxiety Arthritis Asthma CHF (congestive heart failure) ([facility]) Coronary artery disease Depression Gastroenteritis Heart valve disease Hypertension Kidney failure Lumbar spondylolysis Stroke ([facility]) PSH: Past Surgical History: Procedure Laterality Date APPENDECTOMY CHOLECYSTECTOMY GASTRIC BYPASS HERNIA REPAIR HYSTERECTOMY JOINT REPLACEMENT TOTAL KNEE ARTHROPLASTY Right SH: Social Determinants of Health Tobacco Use: Low Risk (07/28/2023) Patient History Smoking Tobacco Use: Never Smokeless Tobacco Use: Never Passive Exposure: Not on file Alcohol Use: Not on file Financial Resource Strain: Low Risk (07/28/2023) Overall Financial Resource Strain (CARDIA) Difficulty of Paying Living Expenses: Not hard at all Food Insecurity: No Food Insecurity (07/28/2023) Hunger Vital Sign Worried About Running Out of Food in the Last Year: Never true Ran Out of Food in the Last Year: Not on file Transportation Needs: No Transportation Needs (07/28/2023) Transportation Lack of Transportation (Medical): No Lack of Transportation (Non-Medical): Not on file Physical Activity: Not on file Stress: Not on file Social Connections: Not on file Intimate Partner Violence: Unknown (07/28/2023) Humiliation, Afraid, Rape, and Kick questionnaire Fear of Current or Ex-Partner: No Emotionally Abused: Not on file Physically Abused: Not on file Sexually Abused: Not on file Depression: Not at risk (01/13/2023) PHQ-2 PHQ-2 Score: 0 Housing Stability: Low Risk (07/28/2023) Housing Stability Vital Sign Unable to Pay for Housing in the Last Year: Not on file Number of Places Lived in the Last Year: Not on file Unstable Housing in the Last Year: No Utilities: Not At Risk (07/28/2023) [facility] Utilities Threatened with loss of utilities: No Allergies: Allergies Allergen Reactions Betadine [Povidone-Iodine] Cephalexin Other Ciprofloxacin Gabapentin Iodine Unknown Pregabalin Sulfa (Sulfonamide Antibiotics) Other and GI intolerance Sulfamethoxazole-Trimethoprim Unknown Amoxicillin-Pot Clavulanate Other, Diarrhea, Nausea And Vomiting and GI intolerance Weight: No weight available Visit Vitals Ht 1.575 m (5' 2 ) BMI 32.56 kg/m??? Smoking Status Never BSA 1.88 m??? Meds: Current Outpatient Medications on File Prior to Visit Medication Sig Dispense Refill albuterol 90 mcg/actuation inhaler Inhale 2 puffs every 6 (six) hours if needed. ALPRAZolam (Xanax) 0.5 mg tablet Take 0.5 mg by mouth if needed in the morning and at bedtime for sleep. amitriptyline (Elavil) 150 mg tablet Take 300 mg by mouth at bedtime. ARIPiprazole (Abilify) 2 mg tablet Take 2 mg by mouth in the morning. bumetanide (Bumex) 2 mg tablet Take 1 tablet (2 mg) by mouth in the morning and at bedtime. Take a 3rd dose at noon as needed for signs of fluid retention including worsening edema and weight gain 60 tablet 2 butorphanol (Stadol) 10 mg/mL nasal spray Administer 1 spray into each nostril. calcium acetate (Phoslo) 667 mg capsule Take 667 mg by mouth in the morning and at bedtime. carvedilol (Coreg) 6.25 mg tablet Take 1 tablet (6.25 mg) by mouth with breakfast and with ev (more content not included)... [facility] 08-16-2023 Note Patient here for [facility] for CHF. Entresto was stopped and she was started on carvedilol. Denies chest pain, and states her SOB is better . She sees nephrology next week. Denies palpitations and bleeding on Eliquis. Review of Systems Constitutional: Positive for malaise/fatigue. Cardiovascular: Positive for dyspnea on exertion (better) and leg swelling. Musculoskeletal: Positive for arthritis, back pain, joint pain and muscle weakness. Neurological: Positive for headaches, loss of balance and weakness. All other systems reviewed and are negative. [facility] 08-03-2023 Note ---- Attestation signed by Navi Weems MD at 08/03/2023 4:43 PM By using the attestations below, the signing clinician agrees that I have read and verify that the documentation has been personally reviewed by me and ensure that the documentation accurately reflects the encounter. GC: I personally saw this patient with Dr. Evaristo Marshall at 1025hours on the day of the encounter, performed the chamberlain portion(s) of the service and participated in the management and confirm the resident's documentation. Please note there may be an additional personal documentation from me. Patient sitting in a chair no acute distress. She notes that she is losing weight with the diuresis. On discharge patient may take Bumex 2 mg twice a day. She is to weigh herself at home and take additional doses if her weight increases. Renal function is stable. Patient is to follow-up with her validation engineer Navi Weems MD, PhD ---- Nephrology Progress Note Patient : Mabel Moser; 63 y.o. Location: 5183/5183-01 Attending: Rayray Mix MD Admit Date: 07/28/2023 Hospital Day: 6 Reason for Consult: Acute Renal Failure Subjective: History of present illness: Mabel Moser is a 63 y.o. female onCKD Stage V alpha-1 antitrypsin carrier, HFpEF, essential hypertension GERD, hypothyroidism, CVA, seizures, DVT on eliquis, morbid obesity s/p gastric bypass surgery who initially presented to [facility] with concerns for worsening lower extremity edema, after gaining 50 pounds within past week. Patient was evaluated by PCP who increased Bumex dose from 1 mg TID to 3 mg TID but patient had no improvement in symptoms. On presentation to [place], patient's creatinine was 4.55 (baseline 1.8-2), phosphorus 11.2, potassium 5.7, magnesium 1.8, hemoglobin 9.2 and BUN 122. Patient was initiated on Bumex drip but developed hypotension and was changed to IV pushes. Patient was subsequently transferred to [facility] Upon assessment at [facility], patient has downtrend in Cr to 3.64, hemoglobin 8.5, troponin 0.01, BNP 265. Patient was initiated on IV Lasix 80 mg 3 times daily Interval history: 08/03/23 Patient has maintained good urine output, renal function stable Objective: Input/Output: Intake/Output Summary (Last 24 hours) at 08/03/2023 1257 Last data filed at 08/03/2023 1225 Gross per 24 hour Intake 1080 ml Output 3439 ml Net -2359 ml I/O last 3 completed shifts: In: 1380 (17.1 mL/kg) [P.O.:1380] Out: 5208 (64.5 mL/kg) [Urine:5208 (1.8 mL/kg/hr)] Weight: 80.7 kg Vital signs: Temperature: Temp: 36.8 ???C (98.2 ???F) TMax: Temp (24hrs), Av.6 ???C (97.9 ???F), Min:36.3 ???C (97.3 ???F), Max:36.8 ???C (98.2 ???F) Respirations: Resp: 25 Pulse: Heart Rate: 80 BP: BP: 105/68 BP Range: Systolic (24hrs), Av , Min:91 , Max:129 Diastolic (24hrs), Av, Min:43, Max:71 Wt Readings from Last 3 Encounters: 08/03/23 80.7 kg (178 lb) 07/13/23 90.7 kg (200 lb) 02/22/23 79.4 kg (175 lb) Constitutional: Appearance: She is morbidly obese. No acute distress HENT: Head: Normocephalic and atraumatic. Right Ear: External ear normal. Left Ear: External ear normal. Nose: Nose normal. Eyes: General: No scleral icterus. Conjunctiva/sclera: Conjunctivae normal. Pupils: Pupils are equal, round, and reactive to light. Cardiovascular: Rate and Rhythm: Normal rate and regular rhythm. Pulses: Normal pulses. Heart sounds: Normal heart sounds. No murmur heard. No friction rub. No gallop. Pulmonary: Effort: Pulmonary effort is normal. No respiratory distress. Breath sounds: Normal breath sounds. No wheezing, rhonchi or rales. Abdominal: General: Abdomen is flat. Bowel sounds are normal. There is no distension. Palpations: Abdomen is soft. There is no mass. Tenderness: There is no abdominal tenderness. Musculoskeletal: Right lower le+ Pitting Edema present. Left lower le+ Pitting Edema present. Skin: General: Skin is warm. Capillary Refill: Capillary refill takes less than 2 seconds. Coloration: Skin is not jaundiced. Findings: No bruising, erythema or rash. Neurological: General: No focal deficit present. Mental Status: She is alert and oriented to person, place, and time. Mental status is at baseline. Cranial Nerves: No cranial nerve deficit. Motor: No weakness. Psychiatric: Mood and Affect: Mood normal. Behavior: Behavior normal. Behavior is cooperative. Thought Content: Thought content normal. Judgment: Judgment normal. Current Medications: Scheduled Meds: amitriptyline, 300 mg, oral, Nightly apixaban, 2.5 mg, oral, BID ARIPiprazole, 2 mg, oral, Daily bumetanide, 2 mg, oral, q8h calcium acetate, 667 mg, oral, BID carvedilol, 6.25 mg, oral, BID with meals desvenlafaxine, (more content not included)... [facility] 08-03-2023 Note Active with [facility] home care. Sent the AVS. [facility] 08-03-2023 Note Physical Therapy Physical Therapy Evaluation Patient Name: Mabel Moser : 1960 Today's Date: 08/03/2023 Hx: 63 y/o female adm with 50 Lb wt gain related to CHF exacerbation 07/28/23. General Family/Caregiver Present: No Subjective: Pt agreeable for PT OT evals, up in recliner following , call light nd tray table in reach, RN aware. PT Diagnosis: baseline mobility lreted to CHF exacerbation Patient Active Problem List Diagnosis Abnormal weight loss Acute sinusitis Amnesia Anxiety Other specified anxiety disorders Mitral valve regurgitation Pulmonic valve regurgitation Aortic valve regurgitation Arthritis of right knee Benign essential hypertension Bilateral hearing loss Chronic obstructive pulmonary disease (CMS/HCC) CKD (chronic kidney disease) stage 3, GFR 30-59 ml/min ([facility]) Closed fracture of trochanter of femur ([facility]) Clostridium difficile colitis Coronary arteriosclerosis Diffuse thyroid 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 thyrotoxicosis Fluid overload Dehydration Cortical age-related cataract of left eye COVID-19 Displacement of lumbar intervertebral disc without myelopathy Edema of lower extremity Edema Orthopnea Dyspnea Endogenous obesity Essential tremor Chronic diastolic heart failure, NYHA class 2 ([facility]) H/O gastric bypass Gouty arthropathy Gastroesophageal reflux disease Full thickness rotator cuff tear Fibromyalgia Low back pain Hip pain Hyperparathyroidism due to renal insufficiency ([facility]) Hypocalcemia Hypertensive disorder Hypoglycemia Hyponatremia Hypothyroidism Impingement syndrome of shoulder region Insomnia Anemia due to vitamin B12 deficiency Pulmonary hypertension ([facility]) Other fatigue Osteoarthritis of knee Morbid (severe) obesity due to excess calories ([facility]) Left atrial enlargement Lumbosacral neuritis Lumbosacral spondylosis without myelopathy Intractable migraine without status migrainosus Migraine Rheumatic tricuspid valve regurgitation Vitamin D deficiency Tympanic membrane perforation, right Transient ischemic attack Thoracic neuritis Tear of right rotator cuff Swallowing problem Sunburn of second degree Status post tympanoplasty Sprain of shoulder Seizure disorder ([facility]) Polyneuropathy associated with critical illness ([facility]) Polyneuropathy Osteoarthritis of spine with radiculopathy, lumbar region Obesity (BMI 30.0-34.9) Lumbar paraspinal muscle spasm Lateral femoral cutaneous neuropathy, left Internal derangement of right shoulder History of total right knee replacement Hemiparesis, left ([facility]) Hemiparesis due to old stroke ([facility]) Difficulty walking Depression Constipation Abnormal blood chemistry 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 ([facility]) Pre-operative cardiovascular examination Acute on chronic systolic CHF (congestive heart failure) ([facility]) History of CVA in adulthood Hyperkalemia Hypomagnesemia Metabolic acidosis RENETTA (acute kidney injury) ([facility]) Cardiorenal disease Past Medical History: Diagnosis Date Anxiety Arthritis Asthma CHF (congestive heart failure) ([facility]) Coronary artery disease Depression Gastroenteritis Heart valve disease Hypertension Kidney failure Lumbar spondylolysis Stroke ([facility]) Past Surgical History: Procedure Laterality Date APPENDECTOMY CHOLECYSTECTOMY GASTRIC BYPASS HERNIA REPAIR HYSTERECTOMY JOINT REPLACEMENT TOTAL KNEE ARTHROPLASTY Right Precautions Precautions Medical Precautions: IV, telemetry, fall Pain Pain Assessment Pain Assessment: 0-10 Pain Score: 7 Pain Type: Acute pain (x5 weeks) Pain Location: Hip Pain Orientation: Right Pain Radiating Towards: (leg) Pain Descriptors: ( sciatica ) Pain Frequency: Constant/continuous Pain Onset: Ongoing Clinical Progression: Gradually worsening Effect of Pain on Daily Activities: worsens with walking Patient's Stated Pain Goal: 4 Pain Interventions: Ambulation/increased activity, Rest Patient Behaviors: Facial grimacing, Guarding Cognition Cognition Overall Cognitive Status: Within Functional Limits Arousal/Alertness: Appropriate responses to stimuli Orientation Level: Oriented X4 Following Commands: Follows all commands and directions without difficulty Cognition Comments: pt with no noted cognitive/safety awareness General Assessment General Assessment Hearing: WFL Skin Integrity: Appears intact Hand Dominance: Right Home Living Home Living Type of Home: House Lives With: Spouse (pt states he can help in a limited basis physically) Home Adaptive Equipment: Rollator, Walker standard Home Layout: One level, Work area in basement Home Access: Ramped entrance Bathroom Toilet: Standard Bathroom Equipment: Grab bars in shower, Tub transfer bench, Shower chair with back, Hand-held shower Prior Level (more content not included)... [facility] 08-03-2023 Note Clinical Nutrition A ssessment: Name: Mabel Moser Room: [address] [place] [address] Date: 1960 Date of Visit: 08/03/23 Admission Dx: Acute on chronic systolic CHF (congestive heart failure) ([facility]) [I50.23] Reason for assessment: length of stay Information obtained from: patient, medical record, and nursing Past Medical History: Diagnosis Date Anxiety Arthritis Asthma CHF (congestive heart failure) ([facility]) Coronary artery disease Depression Gastroenteritis Heart valve disease Hypertension Kidney failure Lumbar spondylolysis Stroke ([facility]) Current Medications: amitriptyline, 300 mg, oral, Nightly apixaban, 2.5 mg, oral, BID ARIPiprazole, 2 mg, oral, Daily bumetanide, 2 mg, oral, q8h calcium acetate, 667 mg, oral, BID carvedilol, 6.25 mg, oral, BID with meals desvenlafaxine, 100 mg, oral, Daily fentaNYL, 2 patch, transdermal, q72h levothyroxine, 100 mcg, oral, Daily liothyronine, 25 mcg, oral, Daily polyethylene glycol, 17 g, oral, Daily primidone, 150 mg, oral, Nightly rosuvastatin, 20 mg, oral, Daily sevelamer carbonate, 800 mg, oral, TID with meals Labs: 0 Lab Value Date/Time POCGLU 77 08/19/2021 0853 BUN 94 (H) 08/03/2023 0508 CREATININE 2.67 (H) 08/03/2023 0508 NA 136 08/03/2023 0508 K 3.9 08/03/2023 0508 PHOS 5.3 (H) 08/02/2023 0457 MG 2.1 08/02/2023 0457 HGBA1C 4.5 07/29/2023 0539 HGB 9.4 (L) 08/03/2023 0509 WBC 9.90 08/03/2023 0509 CHOL 155 07/29/2023 0539 HDL 79 07/29/2023 0539 I/O: Intake/Output Summary (Last 24 hours) at 08/03/2023 1145 Last data filed at 08/03/2023 1048 Gross per 24 hour Intake 1320 ml Output 2639 ml Net -1319 ml Allergies: Allergies Allergen Reactions Betadine [Povidone-Iodine] Cephalexin Other Ciprofloxacin Gabapentin Iodine Unknown Pregabalin Sulfa (Sulfonamide Antibiotics) Other and GI intolerance Sulfamethoxazole-Trimethoprim Unknown Amoxicillin-Pot Clavulanate Other, Diarrhea, Nausea And Vomiting and GI intolerance Nutrition Problems: Swallowing Assessment: Pt denies swallowing difficulty Mouth: upper dentures; pt c/o dry mouth Abdominal Assessment: Last BM 07/31 Appetite: good Cognition: A/O x 4 Geriatric feeding skills: Pt reported that she prepares most of her meals at home with Skin Integrity: skin tear to L buttocks Edema: non-pitting generalized, non-pitting RLE, non-pitting LLE Other factors: renvela TID with meals Nutrition Data/Clinical Indicators of Nutrition Status: Height: 157.5 cm (5' 2 ) Weight: 80.7 kg (178 lb) BMI (Calculated): 32.55 Wt change: Pt denies changes in wt in last year, reported that some wt changes are likely r/t fluid; per documented wt hx, wt appears relatively stable Wt Readings from Last 10 Encounters: 08/03/23 80.7 kg (178 lb) 07/13/23 90.7 kg (200 lb) 02/22/23 79.4 kg (175 lb) 02/16/23 81.2 kg (179 lb) 01/13/23 81.2 kg (179 lb) 12/15/22 80.3 kg (177 lb) 11/30/22 77.1 kg (170 lb) 11/07/22 82.6 kg (182 lb) 10/28/22 83 kg (183 lb) 10/10/22 78.5 kg (173 lb) IBW: 50 kg (110 lb) UBW: 79.5 kg (175 lb); reported by pt Nutrition Assessment: Visiting pt for initial assessment d/t LOS. Pt endorses generally good po intake and appetite seating captain that continues while inpatient. Pt reported that she was instructed to follow no salt diet to which she was very strict on following but reported that she has since been instructed to add more salt in diet r/t low sodium lab value-> RD discussed HH diet with pt with instructions for low-sodium, not a no-sodium diet. Recommended no more than 2,000 mg of sodium per day or ~1 tsp of salt per day if preparing foods at home. Pt verbalized good understanding of diet education; pt reported previously receiving diet education on renal diet and taking phosphorus binders with meals and stated that she regularly weighs herself at home. Dietary Orders (From admission, onward) Start Ordered 07/29/23 1252 Regular Diet Heart Healthy/HTN, CABG,Stroke, (2gNA, low fat, low cholesterol); 2g/Low Potassium; 240ml/tray Diet effective now Question Answer Comment Room Service? Yes Fat restriction: Heart Healthy/HTN, CABG,Stroke, (2gNA, low fat, low cholesterol) Potassium restriction: 2g/Low Potassium Fluid restriction total / 24h: 240ml/tray 07/29/23 1251 Percent Meals Eaten (%): 100 (07/31/23 1800 : Lorna Del Rosario RN) Meal Intakes: 75-100% Nutrition Risk: Low Malnutrition Assessment: Diet Restrictions Fluid Restrictions: 1500 Nutrition Intake Percent Meals Eaten (%): 100 Hand Grasp/Motor Function/Sensation Assessment: Grasp, Dorsiflexion, Plantar flexion R Hand Grasp: Moderate L Hand Grasp: Moderate RUE Sensation: Tingling, Numbness LUE Sensation: Numbness, Tingling (Screed Operator strength not assessed by RD) Patient at risk for malnutrition according to hospital criteria, but does not meet the clinical characteristics per the Academy of [employer] (more content not included)... [facility] 08-03-2023 Note Occupational Therapy Occupational Therapy Evaluation Patient Name: Mabel Moser : 1960 Today's Date: 08/03/2023 Start Time 1058 Stop Time 1121 Time Calculation (min) 23 min OT Evaluation Time Entry OT Evaluation (Moderate) Time Entry 13 OT Therapeutic Procedures Time Entry Therapeutic Activity Time Entry 10 OT Discharge Recommendations: Home, With assist (Pt reports planss to continue HH PT services) General Subjective: I'm just ready to be home. Pt pleasant and cooperative. Family/Caregiver Present: No Objective: RN ok'd pt for therapy this date, pt agreeable. Co-eval with PT. Pt supine in bed upon arrival, retired to seated in recliner upon exit. RN aware, call light within reach, all needs addressed. Activity Orders: AAT Present Illness 63 year-old female admitted 07/28/23 from OSH for fluid overload; pt initially complaining of increased swelling to BLE and ~50lb weight gain over 1 week. Found acute decompensated HFpEF, RENETTA. TTE completed on 07/31/23. PMH: CKD, HFpEF, HTN, GERD, hypothyroidiism, CVA, seizures, DVT OT Diagnosis Decreased functional independence and performance of ADLs. Patient Active Problem List Diagnosis Abnormal weight [...] Chronic diastolic heart failure, NYHA class 2 (CMS/HCC) H/O gastric bypass Gouty arthropathy Gastroesophageal reflux disease Full thickness rotator cuff tear Fibromyalgia Low back pain Hip pain Hyperparathyroidism due to renal insufficiency (CMS/HCC) Hypocalcemia Hypertensive disorder Hypoglycemia Hyponatremia Hypothyroidism Impingement syndrome of shoulder region Insomnia Anemia due to vitamin B12 deficiency Pulmonary hypertension ([facility]/HCC) Other fatigue Osteoarthritis of knee Morbid (severe) obesity due to excess calories ([facility]) Left atrial enlargement Lumbosacral neuritis Lumbosacral spondylosis without myelopathy Intractable migraine without status migrainosus Migraine Rheumatic tricuspid valve regurgitation Vitamin D deficiency Tympanic membrane perforation, right Transient ischemic attack Thoracic neuritis Tear of right rotator cuff Swallowing problem Sunburn of second degree Status post tympanoplasty Sprain of shoulder Seizure disorder ([facility]) Polyneuropathy associated with critical illness ([facility]) Polyneuropathy Osteoarthritis of spine with radiculopathy, lumbar region Obesity (BMI 30.0-34.9) Lumbar paraspinal muscle spasm Lateral femoral cutaneous neuropathy, left Internal derangement of right shoulder History of total right knee replacement Hemiparesis, left ([facility]) Hemiparesis due to old stroke ([facility]) Difficulty walking Depression Constipation Abnormal blood chemistry 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 ([facility]) Pre-operative cardiovascular examination Acute on chronic systolic CHF (congestive heart failure) ([facility]) History of CVA in adulthood Hyperkalemia Hypomagnesemia Metabolic acidosis RENETTA (acute kidney injury) ([facility]) Cardiorenal disease Past Medical History: Diagnosis Date Anxiety Arthritis Asthma CHF (congestive heart failure) ([facility]) Coronary artery disease Depression Gastroenteritis Heart valve disease Hypertension Kidney failure Lumbar spondylolysis Stroke ([facility]) Past Surgical History: Procedure Laterality Date APPENDECTOMY CHOLECYSTECTOMY GASTRIC BYPASS HERNIA REPAIR HYSTERECTOMY JOINT REPLACEMENT TOTAL KNEE ARTHROPLASTY Right Precautions Precautions Medical Precautions: IV, telemetry Pain Pain Assessment Pain Assessment: 0-10 Pain Score: 7 Pain Type: Acute pain, Other (Comment) (d/t sciatica) Pain Location: Hip Pain Orientation: Right Pain Interventions: Ambulation/increased activity, Repositioned Cognition Cognition Overall Cognitive Status: Within Functional Limits Arousal/Alertness: Appropriate responses to stimuli Orientation Level: Oriented X4 Following Commands: Follows all commands and directions without difficulty Safety Judgment: Good awareness of safety precautions Communication: Intact Cognition Comments: Occasional cues for (more content not included)... [facility] 08-03-2023 Note Hospital Medicine Discharge Summary Final Discharge Diagnosis: Acute on chronic systolic CHF (congestive heart failure) ([facility]/HCC) RENETTA on CKD IV Cardiorenal syndrome Mild pulmonary hypertension-as evidenced on most recent right heart cath (11/2022) Essential Hypertension Hypothyroidism Alpha-1 antitrypsin carrier Morbid obesity status post gastric bypass surgery in 1999 Admission Diagnosis: Acute on chronic systolic CHF (congestive heart failure) (CMS/[facility]) [I50.23] Hospital course: Mabel Moser is an 63 y.o. female who came from home with Past medical history of CHF, CKD IV, CAD, hypertension, GERD, hypothyroidism, CVA, seizure disorder, pulmonary hypertension, hx of DVT on eliquis presents to [facility] as a direct admission from [facility] with fluid overload. Patient reports worsening bilateral lower extremity edema over the last week with 50 pound weight gain. During hospitalization, cardiology and nephrology were taken on board and patient was started on aggressive IV diuresis and was noted to have significant improvement in renal function. Considering patient's RENETTA on CKD, patient's blood pressure medications were readjusted to avoid any nephrotoxic agents and Coreg was added intermittently. Patient was discharged on Bumex dosing 3 times daily and was advised to follow-up with PCP, cardiology and nephrology at discharge. Dear Dr. Esther MD, Mabel is advised to follow up with you within 1-2 weeks. Follow-up with: Cardiology and nephrology Scheduled appointments: Future Appointments Date Time Provider Department Center 08/08/2023 11:40 AM Macie Garcia NP [facility] Your medication list START taking these medications Instructions Last Dose Given Next Dose Due carvedilol 6.25 mg tablet Commonly known as: Coreg Take 1 tablet (6.25 mg) by mouth with breakfast and with evening meal for 195 doses. CHANGE how you take these medications Instructions Last Dose Given Next Dose Due bumetanide 1 mg tablet Commonly known as: Bumex What changed: how much to take Take 2 tablets (2 mg) by mouth in the morning, at noon, and at bedtime. CONTINUE taking these medications Instructions Last Dose Given Next Dose Due albuterol 90 mcg/actuation inhaler ALPRAZolam 0.5 mg tablet Commonly known as: Xanax amitriptyline 150 mg tablet Commonly known as: Elavil ARIPiprazole 2 mg tablet Commonly known as: Abilify Breo Ellipta 100-25 mcg/dose inhaler Generic drug: fluticasone furoate-vilanteroL butorphanol 10 mg/mL nasal spray Commonly known as: Stadol calcium acetate 667 mg capsule Commonly known as: Phoslo desvenlafaxine 50 mg 24 hr tablet Commonly known as: Pristiq DULoxetine [address] capsule Commonly known as: Cymbalta Eliquis 2.5 mg tablet Generic drug: apixaban fentaNYL 100 mcg/hr Commonly known as: Duragesic gabapentin 100 mg capsule Commonly known as: Neurontin hyoscyamine 0.125 mg dissolvable tablet Commonly known as: Levsin SL ipratropium-albuteroL 0.5-2.5 mg/3 mL nebulizer solution Commonly known as: Duo-Neb levothyroxine 100 mcg tablet Commonly known as: Synthroid, Levoxyl linaCLOtide 290 mcg capsule Commonly known as: Linzess liothyronine 25 mcg tablet Commonly known as: Cytomel loratadine 10 mg tablet Commonly known as: Claritin ondansetron 4 mg tablet Commonly known as: Zofran oxyCODONE-acetaminophen 5-325 mg tablet Commonly known as: Percocet pramipexole 1 mg tablet Commonly known as: Mirapex primidone 50 mg tablet Commonly known as: Mysoline rosuvastatin 20 mg tablet Commonly known as: Crestor sevelamer carbonate 800 mg tablet Commonly known as: Renvela STOP taking these medications Entresto 97-103 mg tablet Generic drug: sacubitril-valsartan spironolactone 50 mg tablet Commonly known as: Aldactone tiZANidine 4 mg capsule Commonly known as: Zanaflex traMADol 50 mg tablet Commonly known as: Ultram Where to Get Your Medications These medications were sent to [facility] - [place], [place] - [address] [place] [address] [place] [address], [facility] [address] bumetanide 1 mg tablet carvedilol 6.25 mg tablet Mabel is allergic to betadine [povidone-iodine], cephalexin, ciprofloxacin, gabapentin, iodine, pregabalin, sulfa (sulfonamide antibiotics), sulfamethoxazole-trimethoprim, and amoxicillin-pot clavulanate. Disposition: Home-Health Care [facility] (06) Discharge Condition: Stable Code Status: Full Code Diagnostic Results Hematology: Results from last 7 days Lab Units 08/03/23 0509 08/02/23 0457 07/30/23 0521 07/29/23 0610 WBC AUTO 10*3/uL 9.90 7.46 < > -- HEMOGLOBIN g/dL 9.4* 9.2* < > -- HEMATOCRIT % 29.7* 29.6* < > -- MCV fL 99.3* 99.3* < > -- PLATELETS AUTO 10*3/uL 211 249 < > -- INR -- -- -- 1.15* < > = values in this interval not displayed. Chemistry: Resul (more content not included)... [facility] 08-02-2023 Note ---- Attestation signed by Navi Weems MD at 08/02/2023 4:02 PM By using the attestations below, the signing clinician agrees that I have read and verify that the documentation has been personally reviewed by me and ensure that the documentation accurately reflects the encounter. GC: I personally saw this patient with Dr. Benjamin Villavicencio at 1015 hours on the day of the encounter, performed the chamberlain portion(s) of the service and participated in the management and confirm the resident's documentation. Please note there may be an additional personal documentation from me. Patient's renal function is stable. The patient has CKD 4 not 5. We are changing the patient to oral loop diuretic. The patient notes that she did wear self today and did lose more weight. The patient does have cardiorenal syndrome. Navi Weems MD, PhD ---- Nephrology Progress Note Patient : Mabel Moser; 63 y.o. Location: 5183/5183-01 Attending: Rayray Mix MD Admit Date: 07/28/2023 Hospital Day: 5 Reason for Consult: Acute Renal Failure Subjective: History of present illness: Mabel Moser is a 63 y.o. female onCKD Stage V alpha-1 antitrypsin carrier, HFpEF, essential hypertension GERD, hypothyroidism, CVA, seizures, DVT on eliquis, morbid obesity s/p gastric bypass surgery who initially presented to [facility] with concerns for worsening lower extremity edema, after gaining 50 pounds within past week. Patient was evaluated by PCP who increased Bumex dose from 1 mg TID to 3 mg TID but patient had no improvement in symptoms. On presentation to [place], patient's creatinine was 4.55 (baseline 1.8-2), phosphorus 11.2, potassium 5.7, magnesium 1.8, hemoglobin 9.2 and BUN 122. Patient was initiated on Bumex drip but developed hypotension and was changed to IV pushes. Patient was subsequently transferred to [facility] Upon assessment at [facility], patient has downtrend in Cr to 3.64, hemoglobin 8.5, troponin 0.01, BNP 265. Patient was initiated on IV Lasix 80 mg 3 times daily Interval history: 08/02/23 Patient has maintained good urine output, 2.7 liters output Objective: Input/Output: Intake/Output Summary (Last 24 hours) at 08/02/2023 1324 Last data filed at 08/02/2023 1300 Gross per 24 hour Intake 740 ml Output 3169 ml Net -2429 ml I/O last 3 completed shifts: In: 1540 (19.2 mL/kg) [P.O.:1540] Out: 4844 (60.3 mL/kg) [Urine:4844 (1.7 mL/kg/hr)] Weight: 80.3 kg Vital signs: Temperature: Temp: 36.5 ???C (97.7 ???F) TMax: Temp (24hrs), Av.7 ???C (98 ???F), Min:36.4 ???C (97.6 ???F), Max:36.8 ???C (98.3 ???F) Respirations: Resp: 11 Pulse: Heart Rate: 80 BP: BP: 104/60 BP Range: Systolic (24hrs), Av , Min:91 , Max:141 Diastolic (24hrs), Av, Min:51, Max:88 Wt Readings from Last 3 Encounters: 08/02/23 80.3 kg (177 lb) 07/13/23 90.7 kg (200 lb) 02/22/23 79.4 kg (175 lb) Constitutional: Appearance: She is morbidly obese. No acute distress HENT: Head: Normocephalic and atraumatic. Right Ear: External ear normal. Left Ear: External ear normal. Nose: Nose normal. Eyes: General: No scleral icterus. Conjunctiva/sclera: Conjunctivae normal. Pupils: Pupils are equal, round, and reactive to light. Cardiovascular: Rate and Rhythm: Normal rate and regular rhythm. Pulses: Normal pulses. Heart sounds: Normal heart sounds. No murmur heard. No friction rub. No gallop. Pulmonary: Effort: Pulmonary effort is normal. No respiratory distress. Breath sounds: Normal breath sounds. No wheezing, rhonchi or rales. Abdominal: General: Abdomen is flat. Bowel sounds are normal. There is no distension. Palpations: Abdomen is soft. There is no mass. Tenderness: There is no abdominal tenderness. Musculoskeletal: Right lower le+ Pitting Edema present. Left lower le+ Pitting Edema present. Skin: General: Skin is warm. Capillary Refill: Capillary refill takes less than 2 seconds. Coloration: Skin is not jaundiced. Findings: No bruising, erythema or rash. Neurological: General: No focal deficit present. Mental Status: She is alert and oriented to person, place, and time. Mental status is at baseline. Cranial Nerves: No cranial nerve deficit. Motor: No weakness. Psychiatric: Mood and Affect: Mood normal. Behavior: Behavior normal. Behavior is cooperative. Thought Content: Thought content normal. Judgment: Judgment normal. Current Medications: Scheduled Meds: amitriptyline, 300 mg, oral, Nightly apixaban, 2.5 mg, oral, BID ARIPiprazole, 2 mg, oral, Daily bumetanide, 2 mg, oral, q8h calcium acetate, 667 mg, oral, BID carvedilol, 6.25 mg, oral, BID with meals desvenlafaxine, 100 mg, oral, Daily fentaNYL, 1 patch, transdermal, q72h levothyroxine, 100 mcg, or (more content not included)... [facility] 08-02-2023 Note Hospital Medicine Daily Progress Note - 08/02/2023 12:05 PM; Room: [facility] Admission: 07/28/2023 4:37 PM; Length of stay: 5 days THE HOSPITALIST TEAM PREFERS TO USE [employer] FOR COMMUNICATION 7AM-7PM. IF I DO NOT RESPOND WITHIN 15 MINUTES, PLEASE PAGE ME/CALL THROUGH THE REPRODUCTION TECHNICIAN. FROM 7PM-7AM, PLEASE PAGE [phone](COVR) Code Status: Full Code Barriers to Discharge: Renal failure Expected Discharge Date: pending diuretics optimization Discharge Destination: home Overview Patient is seen for evaluation and management of ARF. Subjective Mabel Moser was seen and examined at bedside. currently denies any acute concerns or complaints today. Leg edema is significantly improved Physical Exam Visit Vitals BP 104/60 Pulse 80 Temp 36.5 ???C (97.7 ???F) (Oral) Resp 11 Intake/Output Summary (Last 24 hours) at 08/02/2023 1205 Last data filed at 08/02/2023 1132 Gross per 24 hour Intake 500 ml Output 3444 ml Net -2944 ml Physical Exam Vitals and nursing note reviewed. Constitutional: General: She is not in acute distress. Appearance: Normal appearance. She is obese. She is not ill-appearing. HENT: Head: Normocephalic. Mouth/Throat: Mouth: Mucous membranes are moist. Eyes: Conjunctiva/sclera: Conjunctivae normal. Cardiovascular: Rate and Rhythm: Normal rate and regular rhythm. Pulses: Normal pulses. Heart sounds: Normal heart sounds. No murmur heard. No friction rub. No gallop. Pulmonary: Effort: Pulmonary effort is normal. No respiratory distress. Breath sounds: Normal breath sounds. No wheezing, rhonchi or rales. Abdominal: General: Abdomen is flat. Bowel sounds are normal. There is no distension. Palpations: Abdomen is soft. There is no mass. Tenderness: There is no abdominal tenderness. There is no guarding. Musculoskeletal: General: No swelling, tenderness or deformity. Normal range of motion. Right lower leg: No edema. Left lower leg: No edema. Skin: General: Skin is warm. Capillary Refill: Capillary refill takes less than 2 seconds. Coloration: Skin is not jaundiced. Findings: No erythema, lesion or rash. Neurological: General: No focal deficit present. Mental Status: She is alert and oriented to person, place, and time. Mental status is at baseline. Cranial Nerves: No cranial nerve deficit. Sensory: No sensory deficit. Motor: No weakness. Psychiatric: Mood and Affect: Mood normal. Behavior: Behavior normal. Thought Content: Thought content normal. Judgment: Judgment normal. Estimated body mass index is 32.37 kg/m??? as calculated from the following: Height as of this encounter: 1.575 m (5' 2 ). Weight as of this encounter: 80.3 kg (177 lb). Active Inpatient Problems Principal Problem: Acute on chronic systolic CHF (congestive heart failure) ([facility]) Active Problems: Benign essential hypertension CKD (chronic kidney disease) stage 3, GFR 30-59 ml/min ([facility]) Coronary arteriosclerosis Gastroesophageal reflux disease Hypothyroidism Pulmonary hypertension ([facility]) Seizure disorder ([facility]) Obesity (BMI 30.0-34.9) History of CVA in adulthood Hyperkalemia Hypomagnesemia Metabolic acidosis RENETTA (acute kidney injury) ([facility]) Cardiorenal disease Assessment and Plan Acute decompensated HFpEF - Currently on diuresis with 80mg Lasix IV, BID. Considerable fluid status improvement - currently followed by cardiology and nephrology - TTE completed on 07/31 revealed an EF of 60% RENETTA with history CKD3 and uremia -Creatinine is slightly up trending -Nephrology and cardiology onboard -Strict I&Os, daily weights - will discuss with nephrology team for transition to oral diuretic regimen Chronic Anemia -Patient with a history of iron deficiency as well as B12 anemia -Hemoglobin currently 9.9 -Continue prophylaxis at this time Hx of DVT, on Eliquis CAD, Continue home meds Hypertension, continue home meds GERD, continue home meds Seizure disorder, continue home meds Pulm hypertension, continue home meds History of CVA History of gastric bypass VTE Prophylaxis: Eliquis Scheduled Meds amitriptyline, 300 mg, oral, Nightly apixaban, 2.5 mg, oral, BID ARIPiprazole, 2 mg, oral, Daily calcium acetate, 667 mg, oral, BID carvedilol, 6.25 mg, oral, BID with meals desvenlafaxine, 100 mg, oral, Daily fentaNYL, 1 patch, transdermal, q72h furosemide, 80 mg, intravenous, q12h levothyroxine, 100 mcg, oral, Daily liothyronine, 25 mcg, oral, Daily polyethylene glycol, 17 g, oral, Daily primidone, 150 mg, oral, Nightly rosuvastatin, 20 mg, oral, Daily sevelamer carbonate, 800 mg, oral, TID with meals Pertinent Investigations Hematology: Results from last 7 days Lab Units 08/02/23 0457 08/01/23 0443 07/30/23 0521 07/29/23 0610 WBC AUTO 10*3/uL 7.46 7.37 < > -- HEMOGLOBIN g/dL 9.2* 9.9* < > -- HEMATOCRIT % 29.6* 31.8* < > -- MCV fL 99.3* 98.5* < > -- PLATELETS AU (more content not included)... [facility] 08-02-2023 Note Subjective Follow up for: lower extremity edema with orthopnea, heart failure exacerbation. HPI: Mabel Moser is a 63 y.o. female with PMH of alpha-1 antitrypsin carrier, HFpEF, CKD 3A, HTN, GERD, hypothyroidism, CVA, seizures, DVT (on Eliquis at home), morbid obesity s/p gastric bypass surgery who initially presented to [facility] with concerns for bilateral worsening lower extremity edema. As per patient, she gained 50 pounds of weight within a week. She saw her PCP who increased her Bumex dose from 1 mg 3 times daily to 3 mg 3 times daily but despite that patient had no improvement in her pedal edema. On presentation [facility], patient's creatinine was 4.55 (baseline 1.8-2), phosphorus 11.2, potassium 5.7, magnesium 1.8, hemoglobin 9.2 and BUN 122. She was initiated on Bumex drip but developed hypotension and hence it was changed to IV pushes. Her chest x-ray was negative and there was no DVT diagnosed on duplex ultrasound. She was then transferred to [facility]. At [facility], her creatinine did improved slightly to 3.64, hemoglobin 8.5, troponin 0.01, BNP 265. She was initiated on IV Lasix 80 mg 3 times daily. Patient tells me that she did have a TTE performed at [facility] 2 months back but there are no records available. She also underwent right heart cath in November 2022 which showed mildly increased left and right filling pressures with mild pulmonary hypertension. Her hemodynamic data at that time is as follows: RA: 7 RV: 45/4, 1 PA: 47/13 (29) PCWP: 15 CO: 6.53 CI: 3.66 O2 Sat: PA sat: 73%, AO sat: 100% BP: 136/61 (80) TP PVR: 2.1 Wood units At home, patient does endorse episodes of orthopnea, palpitations and waking up gasping for breath. Prior to 1 week, she did not complain of any lower extremity pitting edema. She also endorses history of alpha-1 antitrypsin carrier state and one of her sons of liver cirrhosis secondary to alpha-1 antitrypsin deficiency. Notably, in the past she was admitted to [facility] in 2019 with fluid overload and responded to diuresis. Prior evaluation included cardiac catheterization in 2015 that showed mild coronary artery disease with mildly elevated right-sided pressures and wedge pressure. She had normal ventricular function by echocardiography. Pulmonary VQ scan was negative for pulmonary embolism. Over the past year, her diuretic therapy had been intensified by Dr. Angle Santana and she was taking bumetanide 3 mg 3 times daily, Entresto 97-103 mg twice daily, spironolactone 100 mg daily, Toprol XL 25 mg daily and hydralazine as needed. Interval: 08/02/23: Patient resting in bed She states she feels as though she is back to [facility] She denies CP, worsened SOB, palpitations, lightheadedness Telemetry: no NSVt seen since 07/3107/31/23 Patient examined around 1000 hours while in vascular lab for US. Denies cp, palpitations, SOB while at rest. Endorses SOB with minimal exertion. States LE edema has significantly improved since admission. Endorses urinating without difficulty. On room air, appears in NAD. Tele overnight: SR 61-91 with 8 beats NSVT at 0127 07/30/23 She is doing well resting in bed States she is feeling much better than yesterday Denies CP, worsened SOB, palpitations, lightheadedness Objective Patient Vitals for the past 24 hrs: BP Temp Temp src Pulse Resp SpO2 Weight 08/02/23 1132 -- 36.5 ???C (97.7 ???F) Oral -- -- -- -- 08/02/23 0945 99/65 -- -- 92 22 98 % -- 08/02/23 0800 93/53 36.4 ???C (97.6 ???F) Oral 67 10 99 % -- 08/02/23 0500 -- -- -- -- -- -- 80.3 kg (177 lb) 08/02/23 0400 94/51 36.8 ???C (98.2 ???F) Temporal 66 12 98 % -- 08/02/23 0002 91/56 36.6 ???C (97.9 ???F) Temporal 65 12 98 % -- 08/01/23 2045 122/61 36.8 ???C (98.3 ???F) Temporal 75 14 98 % -- 08/01/23 1745 141/88 -- -- 76 17 98 % -- 08/01/23 1700 100/65 -- -- 81 -- -- -- 08/01/23 1600 106/76 36.7 ???C (98.1 ???F) Oral 87 20 96 % -- 08/01/23 1214 -- 36.9 ???C (98.5 ???F) Oral -- -- -- -- 08/01/23 1210 104/61 -- -- 75 19 98 % -- Physical Exam Constitutional: Appearance: She is obese. She is ill-appearing. HENT: Head: Normocephalic and atraumatic. Eyes: General: No scleral icterus. Conjunctiva/sclera: Conjunctivae normal. Pupils: Pupils are equal, round, and reactive to light. Cardiovascular: Rate and Rhythm: Normal rate and regular rhythm. Pulses: Normal pulses. Heart sounds: Normal heart sounds. No murmur heard. No friction rub. No gallop. Pulmonary: Effort: Pulmonary effort is normal. No respiratory distress. Breath sounds: Normal breath sounds. No wheezing, rhonchi or rales. Abdominal: General: Abdomen is protuberant, non distended, non tender. Bowel sounds are normal. Palpations: Abdomen is soft. There is no mass. Tenderness: There is no abdominal tenderness. Musculoskeletal: Right lower leg: +1 non pitting edema present. Left lower leg: +1 non pitting edema present. Sk (more content not included)... [facility] 08-01-2023 Note Subjective Follow up for: lower extremity edema with orthopnea, heart failure exacerbation. HPI: Mabel Moser is a 63 y.o. female with PMH of alpha-1 antitrypsin carrier, HFpEF, CKD 3A, HTN, GERD, hypothyroidism, CVA, seizures, DVT (on Eliquis at home), morbid obesity s/p gastric bypass surgery who initially presented to [facility] with concerns for bilateral worsening lower extremity edema. As per patient, she gained 50 pounds of weight within a week. She saw her PCP who increased her Bumex dose from 1 mg 3 times daily to 3 mg 3 times daily but despite that patient had no improvement in her pedal edema. On presentation to [facility], patient's creatinine was 4.55 (baseline 1.8-2), phosphorus 11.2, potassium 5.7, magnesium 1.8, hemoglobin 9.2 and BUN 122. She was initiated on Bumex drip but developed hypotension and hence it was changed to IV pushes. Her chest x-ray was negative and there was no DVT diagnosed on duplex ultrasound. She was then transferred to [facility]. At [facility], her creatinine did improved slightly to 3.64, hemoglobin 8.5, troponin 0.01, BNP 265. She was initiated on IV Lasix 80 mg 3 times daily. Patient tells me that she did have a TTE performed at [facility] 2 months back but there are no records available. She also underwent right heart cath in November 2022 which showed mildly increased left and right filling pressures with mild pulmonary hypertension. Her hemodynamic data at that time is as follows: RA: 7 RV: 45/4, 1 PA: 47/13 (29) PCWP: 15 CO: 6.53 CI: 3.66 O2 Sat: PA sat: 73%, AO sat: 100% BP: 136/61 (80) TP PVR: 2.1 Wood units At home, patient does endorse episodes of orthopnea, palpitations and waking up gasping for breath. Prior to 1 week, she did not complain of any lower extremity pitting edema. She also endorses history of alpha-1 antitrypsin carrier state and one of her sons of liver cirrhosis secondary to alpha-1 antitrypsin deficiency. Notably, in the past she was admitted to [facility] in 2019 with fluid overload and responded to diuresis. Prior evaluation included cardiac catheterization in 2016 that showed mild coronary artery disease with mildly elevated right-sided pressures and wedge pressure. She had normal ventricular function by echocardiography. Pulmonary VQ scan was negative for pulmonary embolism. Over the past year, her diuretic therapy had been intensified by Dr. Angle Santana and she was taking bumetanide 3 mg 3 times daily, Entresto 97-103 mg twice daily, spironolactone 100 mg daily, Toprol XL 25 mg daily and hydralazine as needed. Interval: 08/01/23: Patient resting in bed She states she conitnues to feel noticably better Her biggest complaint today is her skin is itching likely due to irritation from the hospital detergent She denies CP, worsened SOB, palpitations, lightheadedness Telemetry: no NSVt seen since 07/3107/31/23 Patient examined around 1000 hours while in vascular lab for US. Denies cp, palpitations, SOB while at rest. Endorses SOB with minimal exertion. States LE edema has significantly improved since admission. Endorses urinating without difficulty. On room air, appears in NAD. Tele overnight: SR 61-91 with 8 beats NSVT at 0127 07/30/23 She is doing well resting in bed States she is feeling much better than yesterday Denies CP, worsened SOB, palpitations, lightheadedness Objective Patient Vitals for the past 24 hrs: BP Temp Temp src Pulse Resp SpO2 Weight 08/01/23 1214 -- 36.9 ???C (98.5 ???F) Oral -- -- -- -- 08/01/23 1210 104/61 -- -- 75 19 98 % -- 08/01/23 0808 118/57 36.3 ???C (97.3 ???F) Temporal 73 20 98 % -- 08/01/23 0500 -- -- -- -- -- -- 80.3 kg (177 lb) 08/01/23 0455 134/85 36.8 ???C (98.2 ???F) Temporal 69 10 99 % -- 08/01/23 0005 92/71 36.9 ???C (98.4 ???F) Temporal 90 22 96 % -- 07/31/232009 118/80 36.7 ???C (98 ???F) Temporal 78 14 97 % -- 07/31/23 1618 146/79 36.5 ???C (97.7 ???F) Skin 78 12 98 % -- Physical Exam Constitutional: Appearance: She is obese. She is ill-appearing. HENT: Head: Normocephalic and atraumatic. Eyes: General: No scleral icterus. Conjunctiva/sclera: Conjunctivae normal. Pupils: Pupils are equal, round, and reactive to light. Cardiovascular: Rate and Rhythm: Normal rate and regular rhythm. Pulses: Normal pulses. Heart sounds: Normal heart sounds. No murmur heard. No friction rub. No gallop. Pulmonary: Effort: Pulmonary effort is normal. No respiratory distress. Breath sounds: Normal breath sounds. No wheezing, rhonchi or rales. Abdominal: General: Abdomen is protuberant, non distended, non tender. Bowel sounds are normal. Palpations: Abdomen is soft. There is no mass. Tenderness: There is no abdominal tenderness. Musculoskeletal: Right lower leg: +1 non pitting edema present. Left lower leg: +1 non pitting edema present. Skin: General: Skin is warm. Capillary Refill: Capillary refill takes less t (more content not included)... [facility] 08-01-2023 Note ---- Attestation signed by Navi Weems MD at 08/01/2023 1:25 PM (Updated) By using the attestations below, the signing clinician agrees that I have read and verify that the documentation has been personally reviewed by me and ensure that the documentation accurately reflects the encounter. GC: I personally saw this patient with Dr. Gigi Otoole at 1020 hours on the day of the encounter, performed the chamberlain portion(s) of the service and participated in the management and confirm the resident's documentation. Please note there may be an additional personal documentation from me. Patient is in bed. She is diuresing. She is feeling better. Would continue diuresis at this time. Renal function is stable With BUN of 87 and creatinine 2.68. Will hold on dialytic therapy at this time. I did discuss dialysis therapies with the patient. Patient probably has CKD 4 with RENETTA due to cardiorenal syndrome. Navi Weems MD, PhD ---- Nephrology Progress Note Patient : Mabel Moser; 63 y.o. Location: 83/5183-01 Attending: Rayray Mix MD Admit Date: 07/28/2023 Hospital Day: 4 Reason for Consult: Acute Renal Failure Subjective: History of present illness: Mabel Moser is a 63 y.o. female onCKD Stage V alpha-1 antitrypsin carrier, HFpEF, essential hypertension GERD, hypothyroidism, CVA, seizures, DVT on eliquis, morbid obesity s/p gastric bypass surgery who initially presented to [facility] with concerns for worsening lower extremity edema, after gaining 50 pounds within past week. Patient was evaluated by PCP who increased Bumex dose from 1 mg TID to 3 mg TID but patient had no improvement in symptoms. On presentation to [place], patient's creatinine was 4.55 (baseline 1.8-2), phosphorus 11.2, potassium 5.7, magnesium 1.8, hemoglobin 9.2 and BUN 122. Patient was initiated on Bumex drip but developed hypotension and was changed to IV pushes. Patient was subsequently transferred to [facility] Upon assessment at [facility], patient has downtrend in Cr to 3.64, hemoglobin 8.5, troponin 0.01, BNP 265. Patient was initiated on IV Lasix 80 mg 3 times daily Interval history: 08/01/23 Improved urine output (8 liters), patient appears clinical improved. Objective: Input/Output: Intake/Output Summary (Last 24 hours) at 08/01/2023 1213 Last data filed at 08/01/2023 0500 Gross per 24 hour Intake 1390 ml Output 3600 ml Net -2210 ml I/O last 3 completed shifts: In: 1900 (23.7 mL/kg) [P.O.:1900] Out: 8650 (107.7 mL/kg) [Urine:8650 (3 mL/kg/hr)] Weight: 80.3 kg Vital signs: Temperature: Temp: 36.3 ???C (97.3 ???F) TMax: Temp (24hrs), Av.6 ???C (97.9 ???F), Min:36.3 ???C (97.3 ???F), Max:36.9 ???C (98.4 ???F) Respirations: Resp: 20 Pulse: Heart Rate: 73 BP: BP: 118/57 BP Range: Systolic (24hrs), Av , Min:92 , Max:146 Diastolic (24hrs), Av, Min:57, Max:85 Wt Readings from Last 3 Encounters: 08/01/23 80.3 kg (177 lb) 07/13/23 90.7 kg (200 lb) 02/22/23 79.4 kg (175 lb) Constitutional: Appearance: She is morbidly obese. No acute distress HENT: Head: Normocephalic and atraumatic. Right Ear: External ear normal. Left Ear: External ear normal. Nose: Nose normal. Eyes: General: No scleral icterus. Conjunctiva/sclera: Conjunctivae normal. Pupils: Pupils are equal, round, and reactive to light. Cardiovascular: Rate and Rhythm: Normal rate and regular rhythm. Pulses: Normal pulses. Heart sounds: Normal heart sounds. No murmur heard. No friction rub. No gallop. Pulmonary: Effort: Pulmonary effort is normal. No respiratory distress. Breath sounds: Normal breath sounds. No wheezing, rhonchi or rales. Abdominal: General: Abdomen is flat. Bowel sounds are normal. There is no distension. Palpations: Abdomen is soft. There is no mass. Tenderness: There is no abdominal tenderness. Musculoskeletal: Right lower le+ Pitting Edema present. Left lower le+ Pitting Edema present. Skin: General: Skin is warm. Capillary Refill: Capillary refill takes less than 2 seconds. Coloration: Skin is not jaundiced. Findings: No bruising, erythema or rash. Neurological: General: No focal deficit present. Mental Status: She is alert and oriented to person, place, and time. Mental status is at baseline. Cranial Nerves: No cranial nerve deficit. Motor: No weakness. Psychiatric: Mood and Affect: Mood normal. Behavior: Behavior normal. Behavior is cooperative. Thought Content: Thought content normal. Judgment: Judgment normal. Current Medications: Scheduled Meds: amitriptyline, 300 mg, oral, Nightly apixaban, 2.5 mg, oral, BID ARIPiprazole, 2 mg, oral, Daily calcium acetate, 667 mg, oral, BID carvedilol, 6.25 mg, oral, BID with meals desvenlafaxine, 100 mg, oral (more content not included)... [facility] 08-01-2023 Note 08/01/23 0959 Admission Assessment Questions Verify insurance with patient Yes ([facility] Medicare/[place] Medicaid) Do you understand medical disease or what brought you into the hospital? Yes ( I'm in kidney failure & I went into fluid overload ) Who is your current PCP? Angle Santana MD Can I schedule a follow up appointment for you at the time of discharge? No ( I go to [facility] for alot of my physicians ) Do you understand why you are taking your current medications? Yes Are you taking your medications as prescribed? Yes Did patient provide teach back? No Would you like use our pharmacy [facility] to fill your new medications at the time of Discharge? Yes Does the patient have a case investigator assigned to them through their insurance? No Living Arrangement (Current/Prior to Hospitalization) Private residence;Home self care;Other (Comment) (Lives with Delio in 1 story Home+Basement with Ramp/Laundry; stated active with [facility]; Support system 2 Daughter live locally, Lost Son Apr 2023 liver failure & lost daughter; Pt has a R Chest [employer]) Does the patient have history of HHC or SNF? Yes (stated active with [facility], previously went to SNF about 8 hrs ago & also [facility] in [place]) Assistive Device Cane;Grab bars;Raised toilet seat;Walker;Wheelchair (has Shower Chair & Nebulizer) Patient's goal for discharge Home, resume [facility] Was patient reminded that goal for discharge is 11am? Yes Does the patient have transportation at discharge? Yes () Type of Residence/Post Acute Needs HHC Is PT/OT appropriate? Yes Is PT/OT ordered? Yes Is SW consult appropriate? Yes Is SW consult ordered? Yes Do you understand the benefits of MyChart? Yes Were you able to send link and activate [employer]? MyChart already active Screen completed. Await medical stability: diurese with Lasix 80 mg IV q12hr (possibly transition to oral today), ?medically ready tomorrow, Check Renal US today, Creatine up 2.68 today<- 2.51<-3.64, Mag 1.8, Hgb 9.9<-9.1, Follow-up with Nephrology recommendations, Optimize HF medications. Dc Plan: Home, resume [facility], Await PT/OT evaluations today to make sure this is a safe dc plan. [facility] 08-01-2023 Note ---- Attestation signed by Rayray Mix MD at 08/01/2023 2:34 PM As the teaching physician, I have personally performed or re-performed the history of present illness, physical exam and medical decision making activities of the encounter and verified the medical student's documentation. I made pertinent changes as necessary to ensure accurate documentation. Cardio-renal syndrome in RENETTA on CKD IV. Continue IV diuresis for now per renal recommendations. Close UOP monitoring ---- Hospital Medicine Daily Progress Note - 08/01/2023 11:05 AM; Room: [address] [place] [address] Admission: 07/28/2023 4:37 PM; Length of stay: 4 days THE HOSPITALIST TEAM PREFERS TO USE [employer] FOR COMMUNICATION 7AM-7PM. IF I DO NOT RESPOND WITHIN 15 MINUTES, PLEASE PAGE ME/CALL THROUGH THE REPRODUCTION TECHNICIAN. FROM 7PM-7AM, PLEASE PAGE [phone](COVR) Code Status: Full Code Barriers to Discharge: Renal failure Expected Discharge Date: ~08/02? Discharge Destination: home Overview Patient is seen for evaluation and management of ARF. Subjective Mabel Moser was seen and examined at bedside. Patient reports improvement of her lower extremity swelling and fluid status. Patient still admits to orthopnea. She denies any chest pain or shortness of breath. Patient admits to a migraine headache and associated nausea which she reports is normal for her migraines. No recent falls or head trauma. Physical Exam Visit Vitals BP 118/57 (BP Location: Left arm, Patient Position: Lying) Pulse 73 Temp 36.3 ???C (97.3 ???F) (Temporal) Resp 20 Intake/Output Summary (Last 24 hours) at 08/01/2023 1105 Last data filed at 08/01/2023 0500 Gross per 24 hour Intake 1390 ml Output 3600 ml Net -2210 ml Physical Exam Vitals and nursing note reviewed. Constitutional: General: She is not in acute distress. Appearance: Normal appearance. She is obese. She is not ill-appearing. HENT: Head: Normocephalic. Mouth/Throat: Mouth: Mucous membranes are moist. Eyes: Conjunctiva/sclera: Conjunctivae normal. Cardiovascular: Rate and Rhythm: Normal rate and regular rhythm. Pulses: Normal pulses. Heart sounds: Normal heart sounds. No murmur heard. No friction rub. No gallop. Pulmonary: Effort: Pulmonary effort is normal. No respiratory distress. Breath sounds: Normal breath sounds. No wheezing, rhonchi or rales. Abdominal: General: Abdomen is flat. Bowel sounds are normal. There is no distension. Palpations: Abdomen is soft. There is no mass. Tenderness: There is no abdominal tenderness. There is no guarding. Musculoskeletal: General: No swelling, tenderness or deformity. Normal range of motion. Right lower leg: Edema present. Left lower leg: Edema present. Skin: General: Skin is warm. Capillary Refill: Capillary refill takes less than 2 seconds. Coloration: Skin is not jaundiced. Findings: No erythema, lesion or rash. Neurological: General: No focal deficit present. Mental Status: She is alert and oriented to person, place, and time. Mental status is at baseline. Cranial Nerves: No cranial nerve deficit. Sensory: No sensory deficit. Motor: No weakness. Psychiatric: Mood and Affect: Mood normal. Behavior: Behavior normal. Thought Content: Thought content normal. Judgment: Judgment normal. Estimated body mass index is 32.37 kg/m??? as calculated from the following: Height as of this encounter: 1.575 m (5' 2 ). Weight as of this encounter: 80.3 kg (177 lb). Active Inpatient Problems Principal Problem: Acute on chronic systolic CHF (congestive heart failure) ([facility]) Active Problems: Benign essential hypertension CKD (chronic kidney disease) stage 3, GFR 30-59 ml/min ([facility]) Coronary arteriosclerosis Gastroesophageal reflux disease Hypothyroidism Pulmonary hypertension ([facility]) Seizure disorder ([facility]) Obesity (BMI 30.0-34.9) History of CVA in adulthood Hyperkalemia Hypomagnesemia Metabolic acidosis RENETTA (acute kidney injury) ([facility]) Cardiorenal disease Assessment and Plan Acute decompensated HFpEF - Currently on diuresis with 80mg Lasix IV, BID. Considerable fluid status improvement - currently followed by cardiology and nephrology - TTE completed on 07/31 revealed an EF of 60% RENETTA with history CKD3 and uremia -BUN 87, creatinine 2.51 -> 2.68 today - will decrease Lasix to x1 today due to worsening renal function -Nephrology and cardiology onboard -Strict I&Os, daily weights - Negative 3.2L over the past 24. Down Approximately 40 pounds since initial admission prior to transfer -Scheduled to have renal US completed per nephrology Chronic Anemia -Patient with a history of iron deficiency as well as B12 anemia -Hemoglobin currently 9.9 -Continue prophylaxis at this time Hx of DVT, on Eliquis CAD, Continue h (more content not included)... [facility] 07-31-2023 Note ---- Attestation signed by Rinku Tan MD at 08/01/2023 9:14 AM I personally saw and examined the patient on the same date of service as resident/fellow . I discussed the findings and therapeutic plan with the resident/fellow . I agree with the documentation, except for any edits/updates below. Teaching Physician's Revisions: RENETTA 2/2 CRS, continue with IV diuresis, may transition to po tomorrow or after tomorrow. She has no urgent need for [employer] RO[employer], she will need to follow up with her validation engineer upon discharge. ---- Nephrology Progress Note Patient : Mabel Moser; 63 y.o. Location: 5183/5183-01 Attending: Rayray Mix MD Admit Date: 07/28/2023 Hospital Day: 3 Reason for Consult: Acute renal failure Subjective: History of present illness: Mabel Moser is a 63 y.o. female with a past medical history of CKD stage V, alpha-1 antitrypsin carrier, HFpEF, essential hypertension GERD, hypothyroidism, CVA, seizures, DVT on eliquis, morbid obesity s/p gastric bypass surgery who initially presented to [facility] with concerns for worsening lower extremity edema, after gaining 50 pounds within past week. Patient was evaluated by PCP who increased Bumex dose from 1 mg TID to 3 mg TID but patient had no improvement in symptoms. On presentation to [place], patient's creatinine was 4.55 (baseline 1.8-2), phosphorus 11.2, potassium 5.7, magnesium 1.8, hemoglobin 9.2 and BUN 122. Patient was initiated on Bumex drip but developed hypotension and was changed to IV pushes. Patient was subsequently transferred to [facility]. Upon assessment at [facility], patient has downtrend in Cr to 3.64, hemoglobin 8.5, troponin 0.01, BNP 265. Patient was initiated on IV Lasix 80 mg 3 times daily. Interval history: 07/31/23 The patient was seen at bedside this morning. Objective: Input/Output: Intake/Output Summary (Last 24 hours) at 07/31/2023 1315 Last data filed at 07/31/2023 1100 Gross per 24 hour Intake 870 ml Output 5050 ml Net -4180 ml I/O last 3 completed shifts: In: 1350 (16.3 mL/kg) [P.O.:1350] Out: 82612 (128.3 mL/kg) [Urine:78935 (3.6 mL/kg/hr)] Weight: 83 kg Vital signs: Temperature: Temp: 37.1 ???C (98.8 ???F) TMax: Temp (24hrs), Av.6 ???C (97.8 ???F), Min:36.3 ???C (97.3 ???F), Max:37.1 ???C (98.8 ???F) Respirations: Resp: 12 Pulse: Heart Rate: 68 BP: BP: 165/83 BP Range: Systolic (24hrs), Av , Min:115 , Max:165 Diastolic (24hrs), Av, Min:66, Max:83 Wt Readings from Last 3 Encounters: 07/31/23 82.3 kg (181 lb 8 oz) 07/13/23 90.7 kg (200 lb) 02/22/23 79.4 kg (175 lb) Constitutional: Appearance: She is morbidly obese. HENT: Head: Normocephalic and atraumatic. Right Ear: External ear normal. Left Ear: External ear normal. Nose: Nose normal. Eyes: General: No scleral icterus. Conjunctiva/sclera: Conjunctivae normal. Pupils: Pupils are equal, round, and reactive to light. Cardiovascular: Rate and Rhythm: Normal rate and regular rhythm. Pulses: Normal pulses. Heart sounds: Normal heart sounds. No murmur heard. No friction rub. No gallop. Pulmonary: Effort: Pulmonary effort is normal. No respiratory distress. Breath sounds: Normal breath sounds. No wheezing, rhonchi or rales. Abdominal: General: Abdomen is flat. Bowel sounds are normal. There is no distension. Palpations: Abdomen is soft. There is no mass. Tenderness: There is no abdominal tenderness. Musculoskeletal: Right lower le+ Pitting Edema present. Left lower le+ Pitting Edema present. Skin: General: Skin is warm. Capillary Refill: Capillary refill takes less than 2 seconds. Coloration: Skin is not jaundiced. Findings: No bruising, erythema or rash. Neurological: General: No focal deficit present. Mental Status: She is alert and oriented to person, place, and time. Mental status is at baseline. Cranial Nerves: No cranial nerve deficit. Motor: No weakness. Psychiatric: Mood and Affect: Mood normal. Behavior: Behavior normal. Behavior is cooperative. Thought Content: Thought content normal. Judgment: Judgment normal. Current Medications: Scheduled Meds: amitriptyline, 300 mg, oral, Nightly apixaban, 2.5 mg, oral, BID ARIPiprazole, 2 mg, oral, Daily calcium acetate, 667 mg, oral, BID desvenlafaxine, 100 mg, oral, Daily fentaNYL, 1 patch, transdermal, q72h furosemide, 80 mg, intravenous, q12h levothyroxine, 100 mcg, oral, Daily liothyronine, 25 mcg, oral, Daily magnesium oxide, 400 mg, oral, q8h primidone, 150 mg, oral, Nightly rosuvastatin, 20 mg, oral, Daily sevelamer carbonate, 800 mg, oral, TID with meals Continuous Infusions: PRN Meds: PRN medications: albuterol, ALPRAZolam, melatonin, ondansetron, oxyCODONE, oxyCODONE, Insert periph (more content not included)... [facility] 07-31-2023 Note Subjective Follow up for: lower extremity edema with orthopnea, heart failure exacerbation. HPI: Mabel Moser is a 63 y.o. female with PMH of alpha-1 antitrypsin carrier, HFpEF, CKD 3A, HTN, GERD, hypothyroidism, CVA, seizures, DVT (on Eliquis at home), morbid obesity s/p gastric bypass surgery who initially presented to [facility] with concerns for bilateral worsening lower extremity edema. As per patient, she gained 50 pounds of weight within a week. She saw her PCP who increased her Bumex dose from 1 mg 3 times daily to 3 mg 3 times daily but despite that patient had no improvement in her pedal edema. On presentation to review hospital, patient's creatinine was 4.55 (baseline 1.8-2), phosphorus 11.2, potassium 5.7, magnesium 1.8, hemoglobin 9.2 and BUN 122. She was initiated on Bumex drip but developed hypotension and hence it was changed to IV pushes. Her chest x-ray was negative and there was no DVT diagnosed on duplex ultrasound. She was then transferred to [facility]. At [facility], her creatinine did improved slightly to 3.64, hemoglobin 8.5, troponin 0.01, BNP 265. She was initiated on IV Lasix 80 mg 3 times daily. Patient tells me that she did have a TTE performed at [facility] 2 months back but there are no records available. She also underwent right heart cath in November 2022 which showed mildly increased left and right filling pressures with mild pulmonary hypertension. Her hemodynamic data at that time is as follows: RA: 7 RV: 45/4, 1 PA: 47/13 (29) PCWP: 15 CO: 6.53 CI: 3.66 O2 Sat: PA sat: 73%, AO sat: 100% BP: 136/61 (80) TP PVR: 2.1 Wood units At home, patient does endorse episodes of orthopnea, palpitations and waking up gasping for breath. Prior to 1 week, she did not complain of any lower extremity pitting edema. She also endorses history of alpha-1 antitrypsin carrier state and one of her sons of liver cirrhosis secondary to alpha-1 antitrypsin deficiency. Notably, in the past she was admitted to [facility] in 2019 with fluid overload and responded to diuresis. Prior evaluation included cardiac catheterization in 2016 that showed mild coronary artery disease with mildly elevated right-sided pressures and wedge pressure. She had normal ventricular function by echocardiography. Pulmonary VQ scan was negative for pulmonary embolism. Over the past year, her diuretic therapy had been intensified by Dr. Angle Santana and she was taking bumetanide 3 mg 3 times daily, Entresto 97-103 mg twice daily, spironolactone 100 mg daily, Toprol XL 25 mg daily and hydralazine as needed. Interval: 07/31/23 Patient examined around 1000 hours while in vascular lab for US. Denies cp, palpitations, SOB while at rest. Endorses SOB with minimal exertion. States LE edema has significantly improved since admission. Endorses urinating without difficulty. On room air, appears in NAD. Tele overnight: SR 61-91 with 8 beats VT at 0127 07/30/23 She is doing well resting in bed States she is feeling much better than yesterday Denies CP, worsened SOB, palpitations, lightheadedness Objective Patient Vitals for the past 24 hrs: BP Temp Temp src Pulse Resp SpO2 Weight 07/31/23 0825 145/81 -- -- 73 14 97 % -- 07/31/23 0521 -- -- -- -- -- -- 83 kg (182 lb 15.7 oz) 07/31/23 0500 146/80 36.4 ???C (97.5 ???F) Temporal 60 15 96 % -- 07/31/23 0119 115/66 36.3 ???C (97.3 ???F) Temporal 77 14 98 % -- 07/30/232013 142/81 36.3 ???C (97.3 ???F) Temporal 75 11 97 % -- 07/30/23 1600 133/75 36.7 ???C (98 ???F) Temporal 72 10 94 % -- 07/30/23 1210 146/88 36.8 ???C (98.2 ???F) Temporal 79 11 99 % -- Physical Exam Constitutional: Appearance: She is obese. She is ill-appearing. HENT: Head: Normocephalic and atraumatic. Eyes: General: No scleral icterus. Conjunctiva/sclera: Conjunctivae normal. Pupils: Pupils are equal, round, and reactive to light. Cardiovascular: Rate and Rhythm: Normal rate and regular rhythm. Pulses: Normal pulses. Heart sounds: Normal heart sounds. No murmur heard. No friction rub. No gallop. Pulmonary: Effort: Pulmonary effort is normal. No respiratory distress. Breath sounds: Normal breath sounds. No wheezing, rhonchi or rales. Abdominal: General: Abdomen is protuberant, non distended, non tender. Bowel sounds are normal. Palpations: Abdomen is soft. There is no mass. Tenderness: There is no abdominal tenderness. Musculoskeletal: Right lower leg: +1 non pitting edema present. Left lower leg: +1 non pitting edema present. Skin: General: Skin is warm. Capillary Refill: Capillary refill takes less than 2 seconds. Coloration: Skin is not jaundiced. Findings: No bruising, erythema or rash. Neurological: General: No focal deficit present. Mental Status: She is alert and oriented to person, place, and time. Mental status is at baseline. Cranial Nerves: No cranial nerve deficit. Motor: No weakness. Psychiatric: Mood an (more content not included)... [facility] 07-31-2023 Note Pt admitted to [facility] for acute on chronic systolic HF; hx of CHF, CKD 3, CAD, hypertension, GERD, hypothyroidism, CVA, seizure disorder, pulmonary hypertension, hx of DVT. Pt has echo scheduled. I will wait for current echo results to determine pt's eligibility to participate in cardiac rehab (CR) therapy with HF diagnosis and follow up with pt, if appropriate. HILARIA FrancoN senior hardware design engineer Outpatient Coordinator Cardiopulmonary Rehab [facility] 07-31-2023 Note Hospital Medicine Daily Progress Note - 07/31/2023 10:40 AM; Room: [address] [place] [address] Admission: 07/28/2023 4:37 PM; Length of stay: 3 days THE HOSPITALIST TEAM PREFERS TO USE [employer] CHAT FOR COMMUNICATION 7AM-7PM. IF I DO NOT RESPOND WITHIN 15 MINUTES, PLEASE PAGE ME/CALL THROUGH THE REPRODUCTION TECHNICIAN. FROM 7PM-7AM, PLEASE PAGE [phone](COVR) Code Status: Full Code Barriers to Discharge: Renal failure Expected Discharge Date: ~08/02? Discharge Destination: home Overview Patient is seen for evaluation and management of ARF. Subjective Mabel Moser was seen and examined at bedside. Diuresing well overall. Does have some pain on RLE which is sciatica and overall improved since IV diuresis. Physical Exam Visit Vitals BP 145/81 (BP Location: Left arm, Patient Position: Lying) Pulse 73 Temp 36.4 ???C (97.5 ???F) (Temporal) Resp 14 Intake/Output Summary (Last 24 hours) at 07/31/2023 1040 Last data filed at 07/31/2023 0645 Gross per 24 hour Intake 870 ml Output 5400 ml Net -4530 ml Physical Exam Vitals and nursing note reviewed. Constitutional: General: She is not in acute distress. Appearance: Normal appearance. She is obese. She is not ill-appearing. HENT: Head: Normocephalic. Mouth/Throat: Mouth: Mucous membranes are moist. Eyes: Conjunctiva/sclera: Conjunctivae normal. Cardiovascular: Rate and Rhythm: Normal rate and regular rhythm. Pulses: Normal pulses. Heart sounds: Normal heart sounds. No murmur heard. No friction rub. No gallop. Pulmonary: Effort: Pulmonary effort is normal. No respiratory distress. Breath sounds: Normal breath sounds. No wheezing, rhonchi or rales. Abdominal: General: Abdomen is flat. Bowel sounds are normal. There is no distension. Palpations: Abdomen is soft. There is no mass. Tenderness: There is no abdominal tenderness. There is no guarding. Musculoskeletal: General: No swelling, tenderness or deformity. Normal range of motion. Right lower leg: Edema present. Left lower leg: Edema present. Skin: General: Skin is warm. Capillary Refill: Capillary refill takes less than 2 seconds. Coloration: Skin is not jaundiced. Findings: No erythema, lesion or rash. Neurological: General: No focal deficit present. Mental Status: She is alert and oriented to person, place, and time. Mental status is at baseline. Cranial Nerves: No cranial nerve deficit. Sensory: No sensory deficit. Motor: No weakness. Psychiatric: Mood and Affect: Mood normal. Behavior: Behavior normal. Thought Content: Thought content normal. Judgment: Judgment normal. Estimated body mass index is 33.47 kg/m??? as calculated from the following: Height as of this encounter: 1.575 m (5' 2 ). Weight as of this encounter: 83 kg (182 lb 15.7 oz). Active Inpatient Problems Principal Problem: Acute on chronic systolic CHF (congestive heart failure) ([facility]) Active Problems: Benign essential hypertension CKD (chronic kidney disease) stage 3, GFR 30-59 ml/min ([facility]) Coronary arteriosclerosis Gastroesophageal reflux disease Hypothyroidism Pulmonary hypertension ([facility]) Seizure disorder ([facility]) History of CVA in adulthood Hyperkalemia Hypomagnesemia Metabolic acidosis RENETTA (acute kidney injury) ([facility]) Cardiorenal disease Assessment and Plan Acute decompensated HF - R sided? Also has known HFpEF RENETTA on CKD3 w hyperkalemia- cardiorenal? Hyperkalemia resolved. Uremia - mild -BUN 109, creatinine 3.64->2.51 today -Continue IV diuresis as per nephrology/cardiology recs. -Nephrology onboard. -Strict I&Os, daily weights -Follow up TTE -Follow up cardiology recs. Holding aldactone/entresto at present Chronic Anemia -Patient with a history of iron deficiency as well as B12 anemia -Hemoglobin currently 8.5 and was around 9.9, 8 months ago -Continue prophylaxis at this time Hx of DVT, on Eliquis CAD, Continue home meds Hypertension, continue home meds GERD, continue home meds Seizure disorder, continue home meds Pulm hypertension, continue home meds History of CVA History of gastric bypass VTE Prophylaxis: Eliquis Scheduled Meds amitriptyline, 300 mg, oral, Nightly apixaban, 2.5 mg, oral, BID ARIPiprazole, 2 mg, oral, Daily calcium acetate, 667 mg, oral, BID desvenlafaxine, 100 mg, oral, Daily fentaNYL, 1 patch, transdermal, q72h furosemide, 80 mg, intravenous, Once furosemide, 80 mg, intravenous, q12h levothyroxine, 100 mcg, oral, Daily liothyronine, 25 mcg, oral, Daily primidone, 150 mg, oral, Nightly rosuvastatin, 20 mg, oral, Daily sevelamer carbonate, 800 mg, oral, TID with meals Pertinent Investigations Hematology: Results from last 7 days Lab Units 07/31/23 0516 07/30/23 0521 07/29/23 0610 WBC AUTO 10*3/uL 6.08 5.95 -- HEMOGLOBIN g/dL 9.1* 9.0* -- HEMATOCRIT % 28.2* 28.1* -- MCV fL 97.2 97.6 -- PLATELETS AUTO 10*3/uL 247 245 -- INR -- -- 1.15* Chemistry: Results from [facility] (more content not included)... [facility] 07-30-2023 Note ---- Attestation signed by Rinku Tan MD at 07/30/2023 9:28 PM I personally saw and examined the patient on the same date of service as resident, Dr. Villavicencio. I discussed the findings and therapeutic plan with the resident and agree with the documentation. Kidney function improving with iv diuresis, will continue with iv lasix but will decrease to bid from tid. No urgent need for [employer], will continue to follow along. ---- Nephrology Progress Note Patient : Mabel Moser; 63 y.o. Location: 5183/5183-01 Attending: Rayray Mix MD Admit Date: 07/28/2023 Hospital Day: 2 Reason for Consult: Acute Renal Failure Subjective: History of present illness: Mabel Moser is a 63 y.o. female onCKD Stage V alpha-1 antitrypsin carrier, HFpEF, essential hypertension GERD, hypothyroidism, CVA, seizures, DVT on eliquis, morbid obesity s/p gastric bypass surgery who initially presented to [facility] with concerns for worsening lower extremity edema, after gaining 50 pounds within past week. Patient was evaluated by PCP who increased Bumex dose from 1 mg TID to 3 mg TID but patient had no improvement in symptoms. On presentation to [place], patient's creatinine was 4.55 (baseline 1.8-2), phosphorus 11.2, potassium 5.7, magnesium 1.8, hemoglobin 9.2 and BUN 122. Patient was initiated on Bumex drip but developed hypotension and was changed to IV pushes. Patient was subsequently transferred to [facility] Upon assessment at [facility], patient has downtrend in Cr to 3.64, hemoglobin 8.5, troponin 0.01, BNP 265. Patient was initiated on IV Lasix 80 mg 3 times daily Interval history: 07/30/23 Improved urine output (8.4 liters), patient appears clinical iproved Objective: Input/Output: Intake/Output Summary (Last 24 hours) at 07/30/2023 1236 Last data filed at 07/30/2023 1200 Gross per 24 hour Intake 2056 ml Output 7750 ml Net -5694 ml I/O last 3 completed shifts: In: 2356.1 (27.6 mL/kg) [P.O.:2055; I.V.:200.1 (2.3 mL/kg); IV Piggyback:100] Out: 9750 (114 mL/kg) [Urine:9750 (3.2 mL/kg/hr)] Weight: 85.5 kg Vital signs: Temperature: Temp: 36.8 ???C (98.2 ???F) TMax: Temp (24hrs), Av.5 ???C (97.7 ???F), Min:35.8 ???C (96.5 ???F), Max:37.1 ???C (98.7 ???F) Respirations: Resp: 11 Pulse: Heart Rate: 79 BP: BP: 146/88 BP Range: Systolic (24hrs), Av , Min:116 , Max:146 Diastolic (24hrs), Av, Min:54, Max:88 Wt Readings from Last 3 Encounters: 07/30/23 85.5 kg (188 lb 7.9 oz) 07/13/23 90.7 kg (200 lb) 02/22/23 79.4 kg (175 lb) Constitutional: Appearance: She is morbidly obese. No acute distress HENT: Head: Normocephalic and atraumatic. Right Ear: External ear normal. Left Ear: External ear normal. Nose: Nose normal. Eyes: General: No scleral icterus. Conjunctiva/sclera: Conjunctivae normal. Pupils: Pupils are equal, round, and reactive to light. Cardiovascular: Rate and Rhythm: Normal rate and regular rhythm. Pulses: Normal pulses. Heart sounds: Normal heart sounds. No murmur heard. No friction rub. No gallop. Pulmonary: Effort: Pulmonary effort is normal. No respiratory distress. Breath sounds: Normal breath sounds. No wheezing, rhonchi or rales. Abdominal: General: Abdomen is flat. Bowel sounds are normal. There is no distension. Palpations: Abdomen is soft. There is no mass. Tenderness: There is no abdominal tenderness. Musculoskeletal: Right lower le+ Pitting Edema present. Left lower le+ Pitting Edema present. Skin: General: Skin is warm. Capillary Refill: Capillary refill takes less than 2 seconds. Coloration: Skin is not jaundiced. Findings: No bruising, erythema or rash. Neurological: General: No focal deficit present. Mental Status: She is alert and oriented to person, place, and time. Mental status is at baseline. Cranial Nerves: No cranial nerve deficit. Motor: No weakness. Psychiatric: Mood and Affect: Mood normal. Behavior: Behavior normal. Behavior is cooperative. Thought Content: Thought content normal. Judgment: Judgment normal. Current Medications: Scheduled Meds: amitriptyline, 300 mg, oral, Nightly apixaban, 2.5 mg, oral, BID ARIPiprazole, 2 mg, oral, Daily calcium acetate, 667 mg, oral, BID desvenlafaxine, 100 mg, oral, Daily [START ON 07/31/2023] fentaNYL, 1 patch, transdermal, q72h furosemide, 80 mg, intravenous, Once furosemide, 80 mg, intravenous, q12h levothyroxine, 100 mcg, oral, Daily liothyronine, 25 mcg, oral, Daily primidone, 150 mg, oral, Nightly rosuvastatin, 20 mg, oral, Daily sevelamer carbonate, 800 mg, oral, TID with meals Continuous Infusions: PRN Meds: PRN medications: albuterol, ALPRAZolam, melatonin, ondansetron, oxyCODONE, oxyCODONE, Insert peripheral IV AND Saline lock IV AND* (more content not included)... [facility] 07-30-2023 Note Subjective Reason for Consult: Bilaterally worsening lower extremity edema with orthopnea, concerning for heart failure exacerbation. HPI: Mabel Moser is a 63 y.o. female with PMH of alpha-1 antitrypsin carrier, HFpEF, CKD 3A, HTN, GERD, hypothyroidism, CVA, seizures, DVT (on Eliquis at home), morbid obesity s/p gastric bypass surgery who initially presented to [facility] with concerns for bilateral worsening lower extremity edema. As per patient, she gained 50 pounds of weight within a week. She saw her PCP who increased her Bumex dose from 1 mg 3 times daily to 3 mg 3 times daily but despite that patient had no improvement in her pedal edema. On presentation [facility], patient's creatinine was 4.55 (baseline 1.8-2), phosphorus 11.2, potassium 5.7, magnesium 1.8, hemoglobin 9.2 and BUN 122. She was initiated on Bumex drip but developed hypotension and hence it was changed to IV pushes. Her chest x-ray was negative and there was no DVT diagnosed on duplex ultrasound. She was then transferred to [facility]. At [facility], her creatinine did improved slightly to 3.64, hemoglobin 8.5, troponin 0.01, BNP 265. She was initiated on IV Lasix 80 mg 3 times daily. Patient tells me that she did have a TTE performed at [facility] 2 months back but there are no records available. She also underwent right heart cath in November 2022 which showed mildly increased left and right filling pressures with mild pulmonary hypertension. Her hemodynamic data at that time is as follows: RA: 7 RV: 45/4, 1 PA: 47/13 (29) PCWP: 15 CO: 6.53 CI: 3.66 O2 Sat: PA sat: 73%, AO sat: 100% BP: 136/61 (80) TP PVR: 2.1 Wood units At home, patient does endorse episodes of orthopnea, palpitations and waking up gasping for breath. Prior to 1 week, she did not complain of any lower extremity pitting edema. She also endorses history of alpha-1 antitrypsin carrier state and one of her sons of liver cirrhosis secondary to alpha-1 antitrypsin deficiency. Notably, in the past she was admitted to [facility] in 2019 with fluid overload and responded to diuresis. Prior evaluation included cardiac catheterization in 2016 that showed mild coronary artery disease with mildly elevated right-sided pressures and wedge pressure. She had normal ventricular function by echocardiography. Pulmonary VQ scan was negative for pulmonary embolism. Over the past year, her diuretic therapy had been intensified by Dr. Angle Santana and she was taking bumetanide 3 mg 3 times daily, Entresto 97-103 mg twice daily, spironolactone 100 mg daily, Toprol XL 25 mg daily and hydralazine as needed. Interval: 07/30/23 She is doing well resting in bed States she is feeling much better than yesterday Denies CP, worsened SOB, palpitations, lightheadedness Objective Patient Vitals for the past 24 hrs: BP Temp Temp src Pulse Resp SpO2 Height Weight 07/30/23 0800 125/69 35.8 ???C (96.5 ???F) Temporal 70 (!) 6 98 % -- -- 07/30/23 0411 -- -- -- -- -- -- -- 85.5 kg (188 lb 7.9 oz) 07/30/23 0100 116/64 36.3 ???C (97.4 ???F) Temporal 86 14 94 % -- -- 07/29/23 1932 125/54 36.4 ???C (97.6 ???F) Oral 92 13 95 % -- -- 07/29/23 1625 -- -- -- -- 18 -- -- -- 07/29/23 1600 134/77 37.1 ???C (98.7 ???F) Oral 81 (!) 27 98 % -- -- 07/29/23 1322 -- -- -- -- -- -- 1.575 m (5' 2 ) -- 07/29/23 1200 120/67 36.9 ???C (98.5 ???F) Oral 74 18 97 % -- -- 07/29/23 1011 114/70 -- -- -- -- -- -- -- Physical Exam Physical Exam Constitutional: Appearance: She is morbidly obese. She is ill-appearing. HENT: Head: Normocephalic and atraumatic. Right Ear: External ear normal. Left Ear: External ear normal. Nose: Nose normal. Eyes: General: No scleral icterus. Conjunctiva/sclera: Conjunctivae normal. Pupils: Pupils are equal, round, and reactive to light. Cardiovascular: Rate and Rhythm: Normal rate and regular rhythm. Pulses: Normal pulses. Heart sounds: Normal heart sounds. No murmur heard. No friction rub. No gallop. Pulmonary: Effort: Pulmonary effort is normal. No respiratory distress. Breath sounds: Normal breath sounds. No wheezing, rhonchi or rales. Abdominal: General: Abdomen is flat. Bowel sounds are normal. There is no distension. Palpations: Abdomen is soft. There is no mass. Tenderness: There is no abdominal tenderness. Musculoskeletal: Right lower le+ Pitting Edema present. Left lower le+ Pitting Edema present. Skin: General: Skin is warm. Capillary Refill: Capillary refill takes less than 2 seconds. Coloration: Skin is not jaundiced. Findings: No bruising, erythema or rash. Neurological: General: No focal deficit present. Mental Status: She is alert and oriented to person, place, and time. Mental status is at baseline. Cranial Nerves: No cranial nerve deficit. Motor: No weakness. Psychiatric: Mood and Affect: Mood normal. Behavior: Behavior normal. Behavior is cooperative. Thought (more content not included)... [facility] 07-30-2023 Note Hospital Medicine Daily Progress Note - 07/30/2023 8:15 AM; Room: [address] [place] [address] Admission: 07/28/2023 4:37 PM; Length of stay: 2 days THE HOSPITALIST TEAM PREFERS TO USE [employer] CH[employer] FOR COMMUNICATION 7AM-7PM. IF I DO NOT RESPOND WITHIN 15 MINUTES, PLEASE PAGE ME/CALL THROUGH THE REPRODUCTION TECHNICIAN. FROM 7PM-7AM, PLEASE PAGE [phone](COVR) Code Status: Full Code Barriers to Discharge: Renal failure Expected Discharge Date: ~08/02? Discharge Destination: home Overview Patient is seen for evaluation and management of ARF. Subjective Mabel Moser was seen and examined at bedside. No current nursing concerns or overnight events. Patient denies CP, N/V/D/C, fever, chills, or abdominal pain. Continues to c/o severe BLE swelling. +orthopnea Cr improved to 2.95 this morning. Per records, patient had net negative 6.5 liters yesterday. Physical Exam Visit Vitals BP 116/64 (BP Location: Left arm, Patient Position: Lying) Pulse 86 Temp 36.3 ???C (97.4 ???F) (Temporal) Resp 14 Intake/Output Summary (Last 24 hours) at 07/30/2023 0815 Last data filed at 07/30/2023 0302 Gross per 24 hour Intake 1936 ml Output 8450 ml Net -6514 ml Physical Exam Vitals and nursing note reviewed. Constitutional: General: She is not in acute distress. Appearance: Normal appearance. She is obese. She is not ill-appearing. HENT: Head: Normocephalic. Mouth/Throat: Mouth: Mucous membranes are moist. Eyes: Conjunctiva/sclera: Conjunctivae normal. Cardiovascular: Rate and Rhythm: Normal rate and regular rhythm. Pulses: Normal pulses. Heart sounds: Normal heart sounds. No murmur heard. No friction rub. No gallop. Pulmonary: Effort: Pulmonary effort is normal. No respiratory distress. Breath sounds: Normal breath sounds. No wheezing, rhonchi or rales. Abdominal: General: Abdomen is flat. Bowel sounds are normal. There is no distension. Palpations: Abdomen is soft. There is no mass. Tenderness: There is no abdominal tenderness. There is no guarding. Musculoskeletal: General: No swelling, tenderness or deformity. Normal range of motion. Right lower leg: Edema present. Left lower leg: Edema present. Skin: General: Skin is warm. Capillary Refill: Capillary refill takes less than 2 seconds. Coloration: Skin is not jaundiced. Findings: No erythema, lesion or rash. Neurological: General: No focal deficit present. Mental Status: She is alert and oriented to person, place, and time. Mental status is at baseline. Cranial Nerves: No cranial nerve deficit. Sensory: No sensory deficit. Motor: No weakness. Psychiatric: Mood and Affect: Mood normal. Behavior: Behavior normal. Thought Content: Thought content normal. Judgment: Judgment normal. Estimated body mass index is 34.48 kg/m??? as calculated from the following: Height as of this encounter: 1.575 m (5' 2 ). Weight as of this encounter: 85.5 kg (188 lb 7.9 oz). Active Inpatient Problems Principal Problem: Acute on chronic systolic CHF (congestive heart failure) ([facility]) Active Problems: Benign essential hypertension CKD (chronic kidney disease) stage 3, GFR 30-59 ml/min ([facility]) Coronary arteriosclerosis Gastroesophageal reflux disease Hypothyroidism Pulmonary hypertension ([facility]) Seizure disorder ([facility]) History of CVA in adulthood Hyperkalemia Hypomagnesemia Metabolic acidosis RENETTA (acute kidney injury) ([facility]) Assessment and Plan Acute decompensated HF - R sided? Also has known HFpEF RENETTA on CKD3 w hyperkalemia- cardiorenal? Hyperkalemia resolved. Uremia - mild -BUN 109, creatinine 3.64->2.95 today, creatinine on file from 8 months ago was 1.25 -Patient was net negative 6.5 liters yesterday. -Continue IV diuresis as per nephrology/cardiology recs. Decreased to lasix 80mg BID. -Nephrology onboard. Nephrology considering dialysis on Monday. -Strict I&Os, daily weights -Follow up TTE -Follow up cardiology recs. Holding aldactone/entresto. Chronic Anemia -Patient with a history of iron deficiency as well as B12 anemia -Hemoglobin currently 8.5 and was around 9.9, 8 months ago -Continue prophylaxis at this time Hx of DVT, on Eliquis CAD, Continue home meds Hypertension, continue home meds GERD, continue home meds Seizure disorder, continue home meds Pulm hypertension, continue home meds History of CVA History of gastric bypass VTE Prophylaxis: Eliquis Scheduled Meds amitriptyline, 300 mg, oral, Nightly apixaban, 2.5 mg, oral, BID ARIPiprazole, 2 mg, oral, Daily calcium acetate, 667 mg, oral, BID desvenlafaxine, 100 mg, oral, Daily [START ON 07/31/2023] fentaNYL, 1 patch, transdermal, q72h furosemide, 80 mg, intravenous, TID furosemide, 80 mg, intravenous, Once levothyroxine, 100 mcg, oral, Daily liothyronine, 25 mcg, oral, Daily primidone, 150 mg, oral, Nightly rosuvastatin, 20 mg, oral, Daily sevelamer carbonate, 800 mg, oral, TID with meals Pertinent Invest (more content not included)... [facility] 07-29-2023 Note Hospital Medicine Daily Progress Note - 07/29/2023 4:06 PM; Room: [facility] Admission: 07/28/2023 4:37 PM; Length of stay: 1 days THE HOSPITALIST TEAM PREFERS TO USE [employer] CHAT FOR COMMUNICATION 7AM-7PM. IF I DO NOT RESPOND WITHIN 15 MINUTES, PLEASE PAGE ME/CALL THROUGH THE REPRODUCTION TECHNICIAN. FROM 7PM-7AM, PLEASE PAGE [phone](COVR) Code Status: Full Code Barriers to Discharge: Renal failure Expected Discharge Date: ~08/02? Discharge Destination: home Overview Patient is seen for evaluation and management of ARF. Marry Maebl Ivy Tovarrobert was seen and examined at bedside. No current nursing concerns or overnight events. Patient denies CP, SOB, N/V/D/C, fever, chills, or abdominal pain. Continues to c/o severe BLE swelling. +orthopnea Physical Exam Visit Vitals BP 120/67 (BP Location: Left arm, Patient Position: Sitting) Pulse 74 Temp 36.9 ???C (98.5 ???F) (Oral) Resp 18 Intake/Output Summary (Last 24 hours) at 07/29/2023 1606 Last data filed at 07/29/2023 1538 Gross per 24 hour Intake 1036.1 ml Output 4950 ml Net -3913.9 ml Physical Exam Vitals and nursing note reviewed. Constitutional: General: She is not in acute distress. Appearance: Normal appearance. She is obese. She is not ill-appearing. HENT: Head: Normocephalic. Mouth/Throat: Mouth: Mucous membranes are moist. Eyes: Conjunctiva/sclera: Conjunctivae normal. Cardiovascular: Rate and Rhythm: Normal rate and regular rhythm. Pulses: Normal pulses. Heart sounds: Normal heart sounds. No murmur heard. No friction rub. No gallop. Pulmonary: Effort: Pulmonary effort is normal. No respiratory distress. Breath sounds: Normal breath sounds. No wheezing, rhonchi or rales. Abdominal: General: Abdomen is flat. Bowel sounds are normal. There is no distension. Palpations: Abdomen is soft. There is no mass. Tenderness: There is no abdominal tenderness. There is no guarding. Musculoskeletal: General: No swelling, tenderness or deformity. Normal range of motion. Right lower leg: Edema present. Left lower leg: Edema present. Skin: General: Skin is warm. Capillary Refill: Capillary refill takes less than 2 seconds. Coloration: Skin is not jaundiced. Findings: No erythema, lesion or rash. Neurological: General: No focal deficit present. Mental Status: She is alert and oriented to person, place, and time. Mental status is at baseline. Cranial Nerves: No cranial nerve deficit. Sensory: No sensory deficit. Motor: No weakness. Psychiatric: Mood and Affect: Mood normal. Behavior: Behavior normal. Thought Content: Thought content normal. Judgment: Judgment normal. Estimated body mass index is 37.98 kg/m??? as calculated from the following: Height as of this encounter: 1.575 m (5' 2 ). Weight as of this encounter: 94.2 kg (207 lb 10.8 oz). Active Inpatient Problems Principal Problem: Acute on chronic systolic CHF (congestive heart failure) ([facility]) Active Problems: Benign essential hypertension CKD (chronic kidney disease) stage 3, GFR 30-59 ml/min ([facility]) Coronary arteriosclerosis Gastroesophageal reflux disease Hypothyroidism Pulmonary hypertension ([facility]) Seizure disorder ([facility]) History of CVA in adulthood Hyperkalemia Hypomagnesemia Metabolic acidosis Assessment and Plan Acute decompensated HF - R sided? Also has known HFpEF RENETTA on CKD3 w hyperkalemia- cardiorenal? Hyperkalemia resolved Uremia - mild -BUN 109, creatinine 3.64, creatinine on file from 8 months ago was 1.25 -Continue IV diuresis as per nephrology/cardiology recs. -Nephrology consult. Nephrology considering dialysis on Monday. -Strict I&Os, daily weights -Follow up TTE -Follow up cardiology recs. Holding aldactone/entresto. Chronic Anemia -Patient with a history of iron deficiency as well as B12 anemia -Hemoglobin currently 8.5 and was around 9.9, 8 months ago -Continue prophylaxis at this time Hx of DVT, on Eliquis CAD, Continue home meds Hypertension, continue home meds GERD, continue home meds Seizure disorder, continue home meds Pulm hypertension, continue home meds History of CVA History of gastric bypass VTE Prophylaxis: Eliquis Scheduled Meds amitriptyline, 300 mg, oral, Nightly apixaban, 2.5 mg, oral, BID ARIPiprazole, 2 mg, oral, Daily calcium acetate, 667 mg, oral, BID desvenlafaxine, 100 mg, oral, Daily furosemide, 80 mg, intravenous, TID furosemide, 80 mg, intravenous, Once levothyroxine, 100 mcg, oral, Daily liothyronine, 25 mcg, oral, Daily primidone, 150 mg, oral, Nightly rosuvastatin, 20 mg, oral, Daily sevelamer carbonate, 800 mg, oral, TID with meals Pertinent Investigations Hematology: Results from last 7 days Lab Units 07/29/23 0610 07/29/23 0539 07/28/23 1827 WBC AUTO 10*3/uL -- 6.26 6.39 HEMOGLOBIN g/dL -- 8.7* 8.5* HEMATOCRIT % -- 27.6* 27.4* MCV fL -- 99.3* 98.9* PLATELETS AUTO 10*3/uL -- 268 245 INR 1.15* -- -- (more content not included)... [facility] 07-28-2023 Note Hospital Medicine History and Physical 07/28/2023 6:16 PM THE HOSPITALIST TEAM PREFERS TO USE [employer] CHAT FOR COMMUNICATION 7AM-7PM. IF I DO NOT RESPOND WITHIN 15 MINUTES, PLEASE PAGE ME/CALL THROUGH THE REPRODUCTION TECHNICIAN. FROM 7PM-7AM, PLEASE PAGE [phone](COVR) Chief Complaint Direct admission with fluid overload History of Present Illness Mabel Moser is an 63 y.o. female who came from home with Past medical history of CHF, CKD 3, CAD, hypertension, GERD, hypothyroidism, CVA, seizure disorder, pulmonary hypertension, hx of DVT on [place] presents to [facility] as a direct admission from [facility] with fluid overload. Patient reports worsening bilateral lower extremity edema over the last week. Reports a 50 pound weight gain within that same time period. States that she saw her PCP as well as her interpreter for the deaf this past week who increased her Bumex to 3 mg 3 times daily without relief. Patient saw her PCP yesterday who sent her directly to [place] for IV diuresis. Upon arrival there, patient was found to have a WBC 7.5, RBC 2.94, hemoglobin 9.2, hematocrit 29.8, sodium 134, potassium 5.7, BUN 122, creatinine 4.55, calcium 7.6, phosphorus 11.2, magnesium 1.8, AST 41, ALT 30, alkaline phosphatase 213. She was started on a Bumex drip, however, became hypotensive so this was changed to IV push. CXR was completed showing no acute process. Bilateral lower extremity Dopplers were completed showing no DVT. As patient's creatinine is double her normal limit, patient was transferred to [facility] for higher level of care. Upon arrival to [facility] repeat labs are completed showing pH 7.28, hemoglobin 8.5, magnesium 1.6, BUN 109, creatinine 3.64, BNP 265. Spoke with validation engineer on the phone as patient with persistent hyperkalemia and he states to start patient on 80 mg IV Lasix 3 times daily. He does not feel that the patient has a need for dialysis at this time. During my examination, patient denies chest pain or shortness of breath. She does endorse dyspnea with exertion as well as orthopnea. Patient with 4+ pitting edema to her bilateral lower extremities. Review of System and Physical Exam Physical Exam Vitals reviewed. Constitutional: Appearance: She is obese. HENT: Head: Normocephalic. Mouth/Throat: Mouth: Mucous membranes are moist. Pharynx: Oropharynx is clear. Eyes: Conjunctiva/sclera: Conjunctivae normal. Pupils: Pupils are equal, round, and reactive to light. Cardiovascular: Rate and Rhythm: Normal rate and regular rhythm. Pulses: Normal pulses. Heart sounds: Normal heart sounds. Pulmonary: Effort: Pulmonary effort is normal. Comments: Diminished throughout Abdominal: General: Bowel sounds are normal. There is distension. Palpations: Abdomen is soft. Musculoskeletal: Right lower leg: Edema present. Left lower leg: Edema present. Skin: General: Skin is warm and dry. Capillary Refill: Capillary refill takes less than 2 seconds. Neurological: General: No focal deficit present. Mental Status: She is alert and oriented to person, place, and time. Mental status is at baseline. Psychiatric: Mood and Affect: Mood normal. Behavior: Behavior normal. Thought Content: Thought content normal. Judgment: Judgment normal. Review of Systems Constitutional: Positive for fatigue. Negative for appetite change, chills, diaphoresis and fever. HENT: Negative for congestion. Eyes: Negative for discharge. Respiratory: Negative for chest tightness and shortness of breath. Cardiovascular: Positive for leg swelling. Negative for chest pain and palpitations. Gastrointestinal: Positive for abdominal distention. Negative for abdominal pain, blood in stool, constipation, diarrhea, nausea and vomiting. Genitourinary: Negative for difficulty urinating and dyspareunia. Musculoskeletal: Negative for arthralgias and back pain. Skin: Negative for color change, pallor, rash and wound. Neurological: Negative for dizziness, seizures, facial asymmetry, light-headedness, numbness and headaches. Psychiatric/Behavioral: Negative for agitation, behavioral problems, confusion, decreased concentration and dysphoric mood. All other systems reviewed and are negative. Problem List Patient Active Problem List Diagnosis Date Noted Pre-operative cardiovascular examination 02/22/2023 Acute on chronic systolic CHF (congestive heart failure) ([facility]) 07/28/2023 Polyneuropathy associated with critical illness ([facility]) 11/27/2022 Polyneuropathy 11/27/2022 Osteoarthritis of spine with radiculopathy, lumbar region 11/27/2022 Obesity (BMI 30-39.9) 11/27/2022 Lumbar paraspinal muscle spasm 11/27/2022 Lateral femoral cutaneous neuropathy, left 11/27/2022 Internal derangement of right shoulder 11/27/2022 History of total right knee replacement 11/27/2022 Hemiparesis, left ([facility]) 11/27/2022 Hemiparesis due to old stroke ([facility]) 11/27/2022 Dif (more content not included)... [facility] 07-13-2023 Note [place] Cardiology - [facility] Subjective Mabel Moser is a 63 y.o. year old female patient being seen for 6 mo follow up chronic diastolic heart failure, CKD, and CAD. Says she saw Dr. Santana yesterday and he raised her spironolactone to 100mg, which she takes PRN. She was seen in [facility] ED 2 weeks ago for LE [...] Chronic diastolic heart failure, NYHA class 2 ([facility]) H/O gastric bypass Gouty arthropathy Gastroesophageal reflux [...] In the past she was admitted to [facility] in 2019 with fluid overload and [...] reviewed and a (more content not included)... [facility] 07-03-2023 Progress note Note Date/Time July 03, 2023 12:18pm [facility] [address] [place] [address] Nephrology Progress Note Signed Patient: Mabel Moser MR#: [id number] : 1960 Acct:[id number] Age/Sex: 63 / F Adm Date: 4 Loc: Room: [address] [place] [address] Type: ADM IN Attending Dr: Jim Randhawa DO Copies to: ~ Date of Service: 07/03/2023 Subjective Subjective Narrative: Ms. Moser is a 63-year-old white female with history of CKD stage IIIa with baseline creatinine variable between 1.1 1.2 mg/dL with intermittent RENETTA relatedto CHF. Patient presented to the ER [...] 1175 / 1175 1620 / 1620 2049 / 2049 500 / 500 Balance 1175 / [...] QHS LOREN Stop: 06/29/24 21:59 Last Admin: 07/02/23 21:00 Dose: 150 mg Aripiprazole (Aripiprazole 2 Mg Tablet) 2 mg PO DAILY [facility] Stop: 06/29/24 08:59 Last Admin: 07/03/23 08:13 Dose: 2 mg Bisacodyl (Bisacodyl 5 Mg Tablet.Dr) 10 mg PO DAILY PRN PRN Reason: Constipation Stop: 06/28/24 21:34 Bumetanide (Bumetanide 1 Mg/4 Ml Vial) 1 mg IV-PUSH BID@0800,1600 [facility] Stop: 06/29/24 07:59 Last Admin: 07/03/23 08:14 Dose: 1 mg Calcium Acetate (Calcium Acetate 667 Mg Capsule) 667 mg PO BID.WITH.MEALS [facility] Stop: 06/29/24 07:59 Last Admin: 07/03/23 08:13 Dose: 667 mg Duloxetine HCl (Duloxetine 60 Mg Capsule.Dr) 120 mg PO DAILY [facility] Stop: 06/29/24 08:59 Last Admin: 07/03/23 08:13 Dose: 120 mg Fentanyl (Fentanyl Patch 100 Mcg/Hour Patch.Td72) 100 mcg TRANSDERML Q72H [facility]; Protocol Last Admin: 07/03/23 08:12 Dose: 100 mcg Ferrous Sulfate (Ferrous Sulfate 324 Mg Tablet.) 324 mg PO DAILY [facility] Stop: 06/29/24 08:59 Last Admin: 07/03/23 08:13 Dose: 324 mg Gabapentin (Gabapentin 100 Mg Capsule) 100 mg PO TID [facility] Stop: 06/29/24 08:59 Last Admin: 07/03/23 08:13 Dose: 100 mg Guaifenesin/Dextromethorphan (Guaif/Dextromethorphan Syrup 10 Ml Udc) 10 ml PO Q8H PRN PRN Reason: Cough Stop: 06/28/24 21:34 Heparin Sodium (Porcine) (Heparin 5,000 Unit/Ml Vial) 5,000 unit SUBCUT Q12HR [facility] Stop: 06/29/24 08:59 Last Admin: 07/03/23 08:14 Dose: 5,000 unit Levothyroxine Sodium (Levothyroxine 100 Mcg Tablet) 100 mcg PO DAILY@0630 [facility] Stop: 06/29/24 06:29 Last Admin: 07/03/23 06:23 Dose: 100 mcg Linaclotide (Linaclotide 290 Mcg Capsule) 290 mcg PO Q48HR [facility] Stop: 06/29/24 08:59 Last Admin: 07/02/23 08:59 Dose: 290 mcg Liothyronine Sodium (Liothyronine 25 Mcg Tablet) 25 mcg PO DAILY@0630 [facility] Stop: 06/29/24 10:59 Last Admin: 07/03/23 06:23 Dose: 25 mcg Loratadine (Loratadine 10 Mg Tablet) 10 mg PO DAILY PRN PRN Reason: Allergy Symptoms Stop: 06/29/24 06:54 Melatonin (Melatonin 5 Mg Tablet) 5 mg PO QHS PRN PRN Reason: Insomnia Stop: 06/28/24 21:34 Metoprolol Tartrate (Metoprolol Tartrate 25 Mg Tablet) 25 mg PO BID [facility] Stop: 06/29/24 20:59 Last Admin: 07/03/23 08:14 [...] where applicable. A&P - Nephrology Assessment/Plan (1) RENETTA (acute kidney injury): Assessment/Problem Details: Patient presented with RENETTA superimposed on CKD stage IIIa in the setting of recurrent CHF. Patient also has been on NSAIDs that may precipitate salt and water retention in addition to RENETTA. Patient has borderline low blood pressure with [...] <Electronically signed by Raeann Kirkpatrick MD> 07/03/23 1215 [facility] Work Phone: 1(249) 456-599301-07-2024 Progress note Author Jim Randhawa [facility] July 02, 2023 11:26am Note Date/Time July 02, 2023 11 :26am [facility] [address] [place] [address] Hospitalist Progress Note Signed Patient: Mabel Moser MR#: [id number] : 1960 Acct:[id number] Age/Sex: 63 / F Adm Date: 4 Loc: Room: [address] [place] [address] Type: ADM IN Attending Dr: Jim Randhawa [...] 06/30/23 09:00 07/02/23 08:59 Duloxetine 60 Mg Capsule.Dr MCMANUS 06/29/24 08:59 120 mg DAILY LOREN Administration Fentanyl 100 mcg 06/30/23 09:00 06/30/23 09:31 Fentanyl Patch 100 Mcg/Hour Patch.Td72 TRANSDERML 100 mcg Q72H LOREN Administration Protocol Ferrous Sulfate 324 mg 06/30/23 09:00 07/02/23 08:55 Ferrous Sulfate 324 Mg Tablet.Dr PO 06/29/24 [...] 06/30/23 09:00 07/02/23 08:55 Pantoprazole 40 Mg Tablet. PO 06/29/24 08:59 40 mg BID LOREN [...] signed by Jim Randhawa DO> 07/02/23 1126 [facility] Work Phone: 1(151) 621-120601-07-2024 Progress note Author Los Grissom [facility] July 02, 2023 10:42am Note Date/Time July 02, 2023 10 :42am [facility] [address] [place] [address] Nephrology Progress Note Signed Patient: Mabel Moser MR#: [id number] : 1960 Acct:[id number] Age/Sex: 63 / F Adm Date: 4 Loc: Room: [address] [place] [address] Type: ADM IN Attending Dr: Jim Randhawa DO Copies to: ~ Date of Service: 07/02/2023 Subjective Subjective Narrative: Ms. Moser is a 63-year-old white female with history of CKD stage IIIa with baseline creatinine variable between 1.1 1.2 mg/dL with intermittent RENETTA relatedto CHF. Patient presented to the ER [...] Ml Vial) 1 mg IV-PUSH BID@0800,1600 [facility] Stop: 06/29/24 07:59 Last Admin: 07/02/23 08:55 Dose: 1 mg Calcium Acetate (Calcium Acetate 667 Mg Capsule) 667 mg PO BID.WITH.MEALS [facility] Stop: 06/29/24 07:59 Last Admin: 07/02/23 08:55 Dose: 667 mg Duloxetine HCl (Duloxetine 60 Mg Capsule.) 120 mg PO DAILY [facility] Stop: 06/29/24 08:59 Last Admin: 07/02/23 08:59 Dose: 120 mg Fentanyl (Fentanyl Patch 100 Mcg/Hour Patch.Td72) 100 mcg TRANSDERML Q72H [facility]; Protocol Last Admin: 06/30/23 09:31 Dose: 100 mcg Ferrous Sulfate (Ferrous Sulfate 324 Mg Tablet.) 324 mg PO DAILY [facility] Stop: 06/29/24 08:59 Last Admin: 07/02/23 08:55 Dose: 324 mg Gabapentin (Gabapentin 100 Mg Capsule) 100 mg PO TID [facility] Stop: 06/29/24 08:59 Last Admin: 07/02/23 08:55 Dose: 100 mg Guaifenesin/Dextromethorphan (Guaif/Dextromethorphan Syrup 10 Ml Udc) 10 ml PO Q8H PRN PRN Reason: Cough Stop: 06/28/24 21:34 Heparin Sodium (Porcine) (Heparin 5,000 Unit/Ml Vial) 5,000 unit SUBCUT Q12HR [facility] Stop: 06/29/24 08:59 Last Admin: 07/02/23 08:55 Dose: 5,000 unit Levothyroxine Sodium (Levothyroxine 100 Mcg Tablet) 100 mcg PO DAILY@0630 [facility] Stop: 06/29/24 06:29 Last Admin: 07/02/23 05:48 Dose: 100 mcg Linaclotide (Linaclotide 290 Mcg Capsule) 290 mcg PO Q48HR [facility] Stop: 06/29/24 08:59 Last Admin: 07/02/23 08:59 Dose: 290 mcg Liothyronine Sodium (Liothyronine 25 Mcg Tablet) 25 mcg PO DAILY@0630 [facility] Stop: 06/29/24 10:59 Last Admin: 07/02/23 05:48 Dose: 25 mcg Loratadine (Loratadine 10 Mg Tablet) 10 mg PO DAILY PRN PRN Reason: Allergy Symptoms Stop: 06/29/24 06:54 Melatonin (Melatonin 5 Mg Tablet) 5 mg PO QHS PRN PRN Reason: Insomnia Stop: 06/28/24 21:34 Metoprolol Tartrate (Metoprolol Tartrate 25 Mg Tablet) 25 mg PO BID [facility] Stop: 06/29/24 20:59 Last Admin: 07/02/23 08:55 Dose: 25 mg Ondansetron HCl (Ondansetron 4 Mg/2 Ml Vial) 4 mg IV-PUSH Q8H PRN PRN Reason: Nausea And Vomiting Stop: 06/28/24 21:34 Oxycodone/Acetaminophen (Oxycodone/Acetaminophen 5-325 Mg Tablet) 2 tab PO Q6H PRN PRN Reason: Pain Last Admin: 07/02/23 02:00 Dose: 2 tab Pantoprazole Sodium (Pantoprazole 40 Mg Tablet.Dr) 40 mg PO BID [facility] Stop: 06/29/24 08:59 Last Admin: 07/02/23 08:55 Dose: 40 mg Primidone (Primidone 50 Mg Tablet) 100 mg PO HS [facility] Stop: 06/29/24 21:59 Last Admin: 07/01/23 21:21 Dose: 100 mg Sevelamer Carbonate (Sevelamer Carbonate 800 Mg Tablet) 800 mg PO TID.WITH.MEALS [facility] Stop: 06/29/24 11:59 Last Admin: 07/02/23 08:55 [...] where applicable. A&P - Nephrology Assessment/Plan (1) RENETTA (acute kidney injury): Assessment/Problem Details: Patient presented with RENETTA superimposed on CKD stage IIIa in the setting of recurrent CHF. Patient also has been on NSAIDs that may precipitate salt and water retention in addition to RENETTA. Patient has borderline low blood pressure with [...] signed by MD Los Grissom> 07/02/23 1042 [facility] Work Phone: 1(325) 344-186501-06-2024 Progress note Author Jim Randhawa [facility] July 01, 2023 1:52pm Note Date/Time July 01, 2023 1: 37pm [facility] [address] [place] [address] Hospitalist Progress Note Signed Patient: Mabel Moser MR#: [id number] : 1960 Acct:[id number] Age/Sex: 63 / F Adm Date: 4 Loc: Room: [address] [place] [address] Type: ADM IN Attending Dr: Jim Randhawa [...] signed by Jim Randhawa DO> 07/01/23 1352 [facility] Work Phone: [phone] 923-893601-06-2024 Progress note Author Los Grissom [facility] July 01, 2023 10:16am Note Date/Time July 01, 2023 10 :16am [facility] [address] [place] [address] Nephrology Progress Note Signed Patient: Mabel Moser MR#: [id number] : 1960 Acct:[id number] Age/Sex: 63 / F Adm Date: 4 Loc: Room: [address] [place] [address] Type: ADM IN Attending Dr: Jim Randhawa DO Copies to: ~ Date of Service: 07/01/2023 Subjective Subjective Narrative: Ms. Moser is a 63-year-old white female with history of CKD stage IIIa with baseline creatinine variable between 1.1 1.2 mg/dL with intermittent RENETTA relatedto CHF. Patient presented to the ER [...] Mg Tablet) 150 mg PO QHS [facility] Stop: 06/29/24 21:59 Last Admin: 06/30/23 21:17 Dose: 150 mg Aripiprazole (Aripiprazole 2 Mg Tablet) 2 mg PO DAILY [facility] Stop: 06/29/24 08:59 Last Admin: 07/01/23 08:21 Dose: 2 mg Bisacodyl (Bisacodyl 5 Mg Tablet.) 10 mg PO DAILY PRN PRN Reason: Constipation Stop: 06/28/24 21:34 Bumetanide (Bumetanide 1 Mg/4 Ml Vial) 1 mg IV-PUSH BID@0800,1600 [facility] Stop: 06/29/24 07:59 Last Admin: 07/01/23 08:21 Dose: 1 mg Calcium Acetate (Calcium Acetate 667 Mg Capsule) 667 mg PO BID.WITH.MEALS LOREN Stop: 06/29/24 07:59 Last Admin: 07/01/23 08:20 Dose: 667 mg Duloxetine HCl (Duloxetine 60 Mg Capsule.) 120 mg PO DAILY [facility] Stop: 06/29/24 08:59 Last Admin: 07/01/23 08:20 Dose: 120 mg Fentanyl (Fentanyl Patch 100 Mcg/Hour Patch.Td72) 100 mcg TRANSDERML Q72H [facility]; Protocol Last Admin: 06/30/23 09:31 Dose: 100 mcg Ferrous Sulfate (Ferrous Sulfate 324 Mg Tablet.) 324 mg PO DAILY [facility] Stop: 06/29/24 08:59 Last Admin: 07/01/23 08:20 Dose: 324 mg Gabapentin (Gabapentin 100 Mg Capsule) 100 mg PO TID [facility] Stop: 06/29/24 08:59 Last Admin: 07/01/23 08:20 Dose: 100 mg Guaifenesin/Dextromethorphan (Guaif/Dextromethorphan Syrup 10 Ml Udc) 10 ml PO Q8H PRN PRN Reason: Cough Stop: 06/28/24 21:34 Heparin Sodium (Porcine) (Heparin 5,000 Unit/Ml Vial) 5,000 unit SUBCUT Q12HR [facility] Stop: 06/29/24 08:59 Last Admin: 07/01/23 08:21 Dose: 5,000 unit Levothyroxine Sodium (Levothyroxine 100 Mcg Tablet) 100 mcg PO DAILY@0630 [facility] Stop: 06/29/24 06:29 Last Admin: 07/01/23 05:46 Dose: 100 mcg Linaclotide (Linaclotide 290 Mcg Capsule) 290 mcg PO Q48HR [facility] Stop: 06/29/24 08:59 Last Admin: 06/30/23 09:33 Dose: 290 mcg Liothyronine Sodium (Liothyronine 25 Mcg Tablet) 25 mcg PO DAILY@0630 [facility] Stop: 06/29/24 10:59 Last Admin: 07/01/23 05:46 Dose: 25 mcg Loratadine (Loratadine 10 Mg Tablet) 10 mg PO DAILY PRN PRN Reason: Allergy Symptoms Stop: 06/29/24 06:54 Melatonin (Melatonin 5 Mg Tablet) 5 mg PO QHS PRN PRN Reason: Insomnia Stop: 06/28/24 21:34 Metoprolol Tartrate (Metoprolol Tartrate 25 Mg Tablet) 25 mg PO BID [facility] Stop: 06/29/24 20:59 Last Admin: 07/01/23 08:20 [...] where applicable. A&P - Nephrology Assessment/Plan (1) RENETTA (acute kidney injury): Assessment/Problem Details: Patient presented with RENETTA superimposed on CKD stage IIIa in the setting of recurrent CHF. Patient also has been on NSAIDs that may precipitate Soltamox retention and CHF in addition to RENETTA. Patient has borderline low blood pressurewith fentanyl [...] signed by MD Los Grissom> 07/01/23 1016 [facility] Work Phone: 1(985) 755-671101-05-2024 Progress note Author Jim Randhawa [facility] June 30, 2023 1:13pm Note Date/Time June 30, 2023 1: 13pm [facility] [address] [place] [address] Hospitalist Progress Note Signed Patient: Mabel Moser MR#: [id number] : 1960 Acct:[id number] Age/Sex: 63 / F Adm Date: 4 Loc: Room: [address] [place] [address] Type: ADM IN Attending Dr: Jim Randhawa [...] signed by Jim Randhawa DO> 06/30/23 1313 [facility] Work Phone: 1([phone]) 499-474901-05-2024 Consult note Author Los Grissom [facility] June 30, 2023 10:45am Note Date/Time June 30, 2023 10 :26am [facility] [address] [place] [address] Nephrology Consult Note Signed Patient: Mabel Moser MR#: [id number] : 1960 Acct:[id number] Age/Sex: 63 / F Adm Date: 4 Loc: Room: [address] [place] [address] Type: ADM IN Attending Dr: Jim Randhawa DO Copies to: MD Los Mensah MD Shawn J Warner, DO~ Providers Consult Date: 06/30/23 Requesting Provider: Jim Randhawa DO Primary Care Provider: Angle Santana MD HPI Reason for Consult: RENETTA with creatinine 3.16 mg/dL compared to baseline 1 to 1.2mg/dL History of Present Illness: Ms. Moser is a 63-year-old white female with history of CKD stage IIIa with baseline creatinine variable between 1.1 1.2 mg/dL with intermittent RENETTA relatedto CHF. Patient presented to the ER [...] and no additional complaints, except as documented [facility] Medical History CAD (coronary artery disease) [place] filter in place Hypertension Surgical History History [...] Mg Tablet) 150 mg PO QHS [facility] Stop: 06/29/24 21:59 Aripiprazole (Aripiprazole 2 Mg Tablet) 2 mg PO DAILY [facility] Stop: 06/29/24 08:59 Last Admin: 06/30/23 09:30 Dose: 2 mg Bisacodyl (Bisacodyl 5 Mg Tablet.) 10 mg PO DAILY PRN PRN Reason: Constipation Stop: 06/28/24 21:34 Bumetanide (Bumetanide 1 Mg/4 Ml Vial) 1 mg IV-PUSH BID@0800,1600 [facility] Stop: 06/29/24 07:59 Last Admin: 06/30/23 09:31 Dose: 1 mg Calcium Acetate (Calcium Acetate 667 Mg Capsule) 667 mg PO BID.WITH.MEALS [facility] Stop: 06/29/24 07:59 Last Admin: 06/30/23 09:30 Dose: 667 mg Duloxetine HCl (Duloxetine 60 Mg Capsule.) 120 mg PO DAILY [facility] Stop: 06/29/24 08:59 Last Admin: 06/30/23 09:30 Dose: 120 mg Escitalopram Oxalate (Escitalopram 20 Mg Tablet) 20 mg PO DAILY [facility] Stop: 06/29/24 08:59 Last Admin: 06/30/23 09:31 Dose: 20 mg Fentanyl (Fentanyl Patch 100 Mcg/Hour Patch.Td72) 100 mcg TRANSDERML Q72H [facility]; Protocol Last Admin: 06/30/23 09:31 Dose: 100 mcg Ferrous Sulfate (Ferrous Sulfate 324 Mg Tablet.) 324 mg PO DAILY [facility] Stop: 06/29/24 08:59 Last Admin: 06/30/23 09:31 Dose: 324 mg Gabapentin (Gabapentin 100 Mg Capsule) 100 mg PO TID [facility] Stop: 06/29/24 08:59 Last Admin: 06/30/23 09:31 Dose: 100 mg Guaifenesin/Dextromethorphan (Guaif/Dextromethorphan Syrup 10 Ml Udc) 10 ml PO Q8H PRN PRN Reason: Cough Stop: 06/28/24 21:34 Heparin Sodium (Porcine) (Heparin 5,000 Unit/Ml Vial) 5,000 unit SUBCUT Q12HR [facility] Stop: 06/29/24 08:59 Last Admin: 06/30/23 09:32 Dose: 5,000 unit Levothyroxine Sodium (Levothyroxine 100 Mcg Tablet) 100 mcg PO DAILY@0630 [facility] Stop: 06/29/24 06:29 Last Admin: 06/30/23 05:55 Dose: 100 mcg Linaclotide (Linaclotide 290 Mcg Capsule) 290 mcg PO Q48HR [facility] Stop: 06/29/24 08:59 Last Admin: 06/30/23 09:33 Dose: 290 mcg Liothyronine Sodium (Liothyronine 25 Mcg Tablet) 25 mcg PO DAILY [facility] Stop: 06/29/24 08:59 Loratadine (Loratadine 10 Mg [...] Reason: Pain Pantoprazole Sodium (Pantoprazole 40 Mg Tablet.) 40 mg PO BID LOREN Stop: 06/29/24 08:59 Last Admin: 06/30/23 09:31 Dose: 40 mg Primidone (Primidone 50 Mg Tablet) 100 mg PO HS [facility] Stop: 06/29/24 21:59 Sevelamer Carbonate (Sevelamer Carbonate 800 Mg Tablet) 800 mg PO TID [facility] Stop: 06/29/24 08:59 Tizanidine HCl (Tizanidine 4 [...] where applicable. A&P - Nephrology Assessment/Plan (1) RENETTA (acute kidney injury): Assessment/Problem Details: Patient presented with RENETTA superimposed on CKD stage IIIa in the setting of recurrent CHF. Patient also has been on NSAIDs that may precipitate Soltamox retention and CHF in addition to RENETTA. Patient has borderline low blood pressurewith fentanyl [...] <Electronically signed by MD Los Grissom> 06/30/23 1049 [facility] Work Phone: 1(304) 369-697201-04-2024 History and physical note Author Beatriz Oh [facility] June 29, 2023 9:51pm Note Date/Time June 29, 2023 9: 47pm [facility] [address] [place] [address] Hospitalist H&P Signed Patient: Mabel Moser MR#: [id number] : 1960 Acct:[id number] Age/Sex: 63 / F Adm Date: 4 Loc: Room: [address] [place] [address] Type: ADM IN Attending Dr: Papito Garces [...] She denies having dysuria, hematuria, or frequency. [facility] Medical History CAD (coronary artery disease) [place] filter in place Hypertension Surgical History History [...] mg PO BID 08/31/18 [History Confirmed 10/28/22] pyhpklok-xvmlqzt-zrye-iron fum 18 mg-folic 600 mcg-vit K 80 [...] TID PRN Edema 10/28/22 [History Confirmed 10/28/22] sewdzlnjrx-nbmhwrtactopi-vkgesaxl 50 mg-325 mg-40 mg capsule 1 cap [...] By: <Electronically signed by Beatriz Oh MD> 06/29/232150 [facility] Work Phone: 1(290) 261-207010-10-2023 Evaluation note* Encounter Date Diagnosis Assessment Notes [...] G43.519) Advised the patient to follow with [facility] neurology clinic Mar, Chronic kidney disea [...] Hyperphosphatemia (ICD-10 - E83.39) Continue PhosLo with [employer] Other [id number] NoteRemains stable without worsening symptomsUnMercer County Community Hospital08-30-2023 NoteCoronary artery disease is stable Continue GDMT continue risk factor modifications- heart healthy diet, regular exercise as tolerated and continue all medications.[facility] 02-22-2023 NoteNYHC II Continue GDMT- entresto- metoprolol and aldactone have been dc's r/t hypotension. Diuretic therapy- bumex 2 mg bid- Monitor daily weights, I&O, fluid restriction 1.5-2L/day, renal function and electrolytes- please maintain K+>4 and Mg > 2UnMercer County Community Hospital 02-22-2023 NoteRCRI- 0???points Class I Risk 3.9???% 30-day risk of , [place], or cardiac arrest From a cardiology perspective pt may proceed with Total knee arthroplasty with Dr Dennis, she is a low to moderate risk for a low to mod risk orthopedic surgery. She does not take any Aspirin, or anticoagulation. Please monitor hemodynamics carefully and prevent any major fluid shifts.[facility]08-30-2023 NoteUTP CARDIOLOGY PROGRESS NOTE HPI: Mabel Moser is a 62 y.o. female here for pre surgery risk stratification Patient here for 2 mo follow up pulmonary hypertension and hypertension. She was admitted to [facility] twice this past month. She needs [...] is alert and or (more content not included)...[facility]08-30-2023 NotePatient here for 2 mo follow up pulmonary hypertension and hypertension. She was admitted to [facility] twice this past month. She needs cleared for knee replacement surgery with Dr. Dennis. Denies chest pain, lightheadedness, and palpitations. Says SOB is improving. Review of Systems Constitutional: Positive for malaise/fatigue. Cardiovascular: Positive for dyspnea on exertion (improving). Musculoskeletal: Positive for arthritis, back pain and joint pain. All other systems reviewed and are negative.[facility] 02-16-2023 NoteSubjective: Patient ID: Mabel Moser is [...] History: Diagnosis Date CHF (congestive heart failure) ([facility]) Coronary artery disease Heart valve disease [...] proceed with surgery. Oneal Downey, M3 [facility] 02/16/23 As the teaching physician, I have personally performed or re-performed the history of present illness, physical exam and medical decision-making activities of the encounter and verified the medical student's documentation. I made pertinent changes as necessary to ensure accurate documentation. Additional Comments: [facility]07-21-2023 NoteData Mabel Moser 1960 Chief Complaint Patient [...] specifically wasdoing aquatic therapy, at [facility] with mild improvement. patient has had injections in the past, and did have some improvement however feels that getting significant improvement with these. She is interested in considering surgical intervention. Of Note, she did have a R. Total knee arthroplasty about 8 years at [facility]. Patient is also complaining of Left hip pain that worsened about a year ago after she had a fall. She did have x-rays completed after this, and was told that she had a chip off of her bone. . She saw Dr. Barajas at [facility] who recommended continiues conservative management. Hip pain rated as a 4-5/10. Most of her pain on the outer aspect of the hip. No prior injections or focused PT for the hip. Past Medical History: Diagnosis Date CHF (congestive heart failure) (CMS/HCC) Coronary artery disease Heart valve disease History [...] in detail including differentia (more content not included)...[facility]06-22-2023 Note [place] Cardiology - [facility] Subjective Mabel Moser is a [...] In the past she was admitted to [facility] in 2019 with fluid overload and [...] needed. review of her blood testing shows RENETTA with creatinine going up to 2.5-2 12/06/2022 [...] not ill-appearing. HENT: H (more content not included)...[facility]06-07-2023 NotePt insists right subclavian chest port is accessed for procedure. 4CD RN at bedside to access. RN is not able to access. Li RN CVL spoke with Dr Hidalgo and pt can go to [employer] without IV access for RHC.[facility]06-07-2023 NotePatient: Mabel Moser Procedure Information Date/Time: 11/30/22 1300 Procedure: Right heart cath Location: [facility] / [facility] (Cath) Providers: Benjie Hidalgo [...] products. Plan discussed with fellow. Additional Equipment RequestsUnMercer County Community Hospital05-15-2023 Note [place] Cardiology - [facility] Subjective Mabel Moser is a 62 y.o. year old female patient being seen for 2 week follow up per Sofie Bernard CNP. She says since she was last seen on 10/28, Dr. Santana increased her Entresto to 97-103mg bid, metoprolol to 50mg TID, and hydralazine to 100mg TID. Says she was in [facility] ED again last Monday with a [...] In the past she was admitted to [facility] in 2019 with fluid overload and [...] is no distension. Pal (more content not included)...[facility]05-05-2023 NoteHeadaches today and to be evaluated in ED- worst H/A I have ever had. [facility]05-05-2023 NoteCoronary artery disease is stable Continue GDMTUnMercer County Community Hospital05-05-2023 NoteHypertension is uncontrolled with c/o worst headache ever- recommended pt to be evaluated in EDUniversC[facility]05-05-2023 NoteContinue to monitor with echoUnMercer County Community Hospital05-05-2023 NoteNYHC- IV- SOB with rest and + Orthopnea, volume overloaded on exam despite Bumex 1 mg po tid and increased renal function. Noted elevated rt sided pressures with RVSP 59 and dilated RV on Echo 09/21/22- She has h/o PE in the past and currently on ASA. CR was increasing on labs noted 10/26/22- CR 1.68/BUN 45 at admit was 1.23/ 38 [facility]05-05-2023 NoteUTP CARDIOLOGY PROGRESS NOTE HPI: Mabel Moser is a 62 y.o. female here for hospital f/u Patient here for follow up [facility] ED on 10/24/2022 for fluid overload. [...] in the morning, afternoon, and at bedtime. ohirsnyfkn-qgvdrlpampyeb-imhk (Esgic) 50-325-40 mg capsule zzuvxscycq-ljejtovdgiade-qqdlasxq 50 mg-325 mg-40 mg capsule butorphanol (Stadol) [...] hypertension Hypertension is uncontrolle (more content not included)...[facility]05-05-2023 NotePatient here for follow up [facility] ED on 10/24/2022 for fluid overload. [...] light-headedness. All other systems reviewed and are negative.[facility] 10-10-2022 NoteNew patient here to re-establish care. She was last seen in [address] Hidalgo. She was discharged 10/07/2022 from [facility] for fluid overload. Had echo 09/21/2022. Says PCP put her on Entresto a few months ago, and recently decreased her dose due to hyperkalemia per patient. Review of Systems Constitutional: Positive for malaise/fatigue. Cardiovascular: Positive for dyspnea on exertion, leg swelling and palpitations. Musculoskeletal: Positive for arthritis, back pain and joint pain. Neurological: Positive for light-headedness. All other systems reviewed and are negative.[facility] 10-10-2022 NoteCardiovascular Medicine [facility] SUBJECTIVE Chief Complaint Patient presents with Congestive Heart Failure Re-establish care HPI Mabel Moser is a 62 y.o. female here to re-establish care. She was recently discharged from [facility] for fluid overload. Her weight went [...] She follows with a kidney specialist at [facility]. Her leg swelling has improved [...] She has been admitted in 07/2018 to [facility] with dyspnea, fluid overload and was [...] vitamin B12 deficiency Pulmona (more content not included)...[facility] 09-27-2022 Evaluation note* Encounter Date Diagnosis Assessment [...] G43.519) Advised the patient to follow with [facility] neurology clinic Alereon Freeman [facility] Other 03-28-2023 NoteThe [facility] Community [id number] Evaluation note* Encounter Date Diagnosis Assessment Notes Treatment Notes Treatment Clinical Notes Jul, Contusion of right wrist, initial encounter (ICD-10 - S60.211A) Patient placed in cock up wrist splint. Activities 2-5 lbs ADLs [facility] Other 12-13-2022 NoteThe [facility] Community HospitalZnvkozoq06-92-1963 NoteThe [facility] Community HospitalGumgzkhv97-39-1584 NoteThe [facility] Community HospitalXisxhyez38-57-1750 Evaluation note * Encounter Date Diagnosis Assessment [...] pressure. Advised the patient to follow-up with [facility] neurology clinic I will try to reach to Dr. Santana's office about fludrocortisone I would continue same blood pressure medications. Advised the patient to follow a low-salt diet and to monitor her blood pressure at home Mar, Migraine aura, persistent, intractable (ICD-10 - G43.519) Advised the patient to follow with [facility] neurology clinic [facility] Other 08-04-2022 NoteThe [facility] Community HospitalMktgchef56-34-0025 NoteThe [facility] HospitalXknxyeay31-10-0841 Evaluation note* Encounter Date Diagnosis Assessment Notes [...] off all diuretics metolazone, spironolactone and bumetanide. [facility] Other Discharge summary Author Jim Randhawa [facility] July 03, 2023 3:03pm Note Date/Time July 03, 2023 2: 55pm [facility] [address] [place] [address] Discharge Summary Signed Patient: Mabel Moser MR#: [id number] : 1960 Acct:[id number] Age/Sex: 63 / F Adm Date: 4 Loc: Room: [address] [place] [address]: Jim Randhawa DO Copies to: MD Jim Mensah, DO~ Providers Date of Admission: 06/29/23 Date of Discharge: 07/03/23 Discharging Provider: Jim Randhawa Primary Care Provider: Angle Santana Consults: 06/29/23 21:35 Consult to Nephrology Routine Consult to Occupational Therapy Routine Consult to Physical Therapy Routine Discharge Diagnosis (1) RENETTA (acute kidney injury): (2) Acute heart failure: [...] room she was found to have an RENETTA with her creatinine up to 3.16 with a GFR of 16, her baseline is 1.3-1.5 with GFR of 50, and her weightwas roughly 20 pounds above her baseline. She was subsequent admitted and placed on IV Bumex 1 mg twice daily and seen in nephrology consult. Her Entresto was held on admission due to the severity of her RENETTA, she did have an adequate response to the IV Bumex and her creatinine trended down towards normalslowly as well as her weight. She is overall net negative throughout her hospitalization. The afternoon of Ama 8, her creatinine was 2.32 proved entirely it [...] - Urinary assessments - Dx. CKD on RENETTA - Fall precautions - high fall risk [...] 1453 Signed By: <Electronically signed by Jim Randhawa DO> 07/03/23 1503 [facility] Work Phone: Evaluation noteNo assessment information available [facility] Work Phone: Evaluation noteNo InformationNort FirmPlay Other Evaluation note* Diagnosis Onset Date Resolution Status Acute heart failure acute RENETTA (acute kidney injury) ac [place] Anemia chronic CKD (chronic kidney disease) stage 3, GFR 30-59 ml/min chronic Hypertension chronic [facility] Work Phone: History general Narrative - [...] History COVID 05/2020 Hospitalization History COVID 04/2021 [facility] Other history general Narrative - Reported* Type [...] History COVID 05/2020 Hospitalization History COVID 04/2021 [facility] Other history general Narrative - Reported* Type [...] 04/2021 Hospitalization History ELEVATED POTASSIUM LEVEL 09/19/2022 [facility] Other Hospital Discharge instructions Additional Instructions Home health to manage: - PT/OT to eval and treat - Monitor VS routine - Dx. HTN - CHF assessments/education - Urinary assessments - Dx. CKD on RENETTA - Fall precautions - high fall riskWayne [facility] Work Phone: Summary Purpose Family History [...] Complaint sent by brandi chung Chief Complaint RENETTA Reason for Visit Acute heart failure RENETTA (acute kidney injury) Anemia CKD (chronic kidney disease) stage 3, GFR 30-59 ml/min Hypertension Additional Source Comments INFORMATION SOURCE (unrecogn ized section and content) DATE CREATED AUTHOR 01/14/2019 Ailyn Chandler [facility] DATE CREATED AUTHOR AUTHOR'S ORGANIZ ATION 07/24/2021 [facility] DATE CREATED AUTHOR AUTHOR'S ORGANIZ ATION 01/17/2022 [facility] DATE CREATED AUTHOR AUTHOR'S ORGANIZ ATION 12/05/2022 [facility] DATE CREATED AUTHOR AUTHOR'S ORGANIZ ATION 02/10/2023 [facility] DATE CREATED AUTHOR AUTHOR'S ORGANIZ ATION 08/04/2023 [facility] DATE CREATED AUTHOR AUTHOR'S ORGANIZ ATION 08/23/2023 [facility] REASON FOR VISIT (unrecogniz ed section and content) RENAL 6 month f/u for CKD st age III with recurrent RENETTA on diureticsRENAL 4 month Follow up, NO [...] Oh MD Admit Provider Active Jim Randhawa , Attending Provider Active Los Grissom MD Other [...] BE BASED ON THE PRIMARY CLINICAL RECORDS. [facility] [employer] provides no warranty or guarantee of the accuracy or completeness of information in this document.
== END 2023-09-15 12:03 | disposition home or self-care (01) ==
LOC: RAD 12:05
PROVIDERS: PCP Family Medicine; Visit Provider Family Medicine
DX: Z04.3 Encounter for examination and observation following other accident (principal); M79.605 Pain in left leg; M17.12 Unilateral primary osteoarthritis, left knee
CPT/HCPCS: 73552; 73560; 73590

== ENCOUNTER 2023-09-21 07:28 | Outpatient (RCR) | payer MEDICARE, MEDICAID, SELFPAY ==
[2023-09-01] MEDS: HEPARIN SODIUM (PORCINE) PF LOCK FLUSH 500 UNIT/5 ML SYRINGE IV (12:59)
[2023-09-01 16:03] LABS: Basophils Percent Auto 0.4 % (0.2-2.0); Eosinophils Absolute Auto 0.1 10^3/uL (0.0-0.7); Eosinophils Percent Auto 1.2 % (0.9-7.0); Hematocrit 30.9 % (36.0-48.0); Hemoglobin 9.7 g/dL (12.0-16.0); Immature Granulocytes Abs Auto 0.05 10^3/uL (0.00-0.03); Immature Granulocytes Pct Auto 0.6 % (0.0-0.5); Lymphocytes Absolute Auto 1.6 10^3/uL (1.2-3.8); Lymphocytes Percent Auto 19.3 % (20.5-60.0); Mean Corpuscular HGB Conc 31.4 g/dL (29.9-35.2); Mean Corpuscular Hemoglobin 31.3 pg (26.7-34.0); Mean Corpuscular Volume 99.7 fL (81.0-99.0); Mean Platelet Volume 9.4 fL (9.5-13.5); Monocytes Absolute Auto 0.5 10^3/uL (0.3-0.8); Monocytes Percent Auto 5.7 % (1.7-12.0); Neutrophils Absolute Auto 6.1 10^3/uL (1.4-6.5); Neutrophils Percent Auto 72.8 % (43.0-75.0); Platelet Count 316 10^3/uL (150-450); White Blood Count 8.4 10^3/uL (4.0-11.0)
[2023-09-01 16:13] LABS: Alanine Aminotransferase 23 U/L (14-59); Albumin Globulin Ratio 0.9; Albumin Level 3.3 g/dL (3.4-5.0); Alkaline Phosphatase 240 U/L (46-116); Anion Gap 13.6; Aspartate Amino Transferase 23 U/L (15-37); BUN Creatinine Ratio 25.4; Bilirubin Total 0.3 mg/dL (0.2-1.0); Calcium 8.2 mg/dL (8.5-10.1); Carbon Dioxide 25.4 mmol/L (21.0-32.0); Chloride 100 mmol/L (98-107); Estimated GFR (African America 37 (>=60); Estimated GFR (Non-African Ame 31 (>=60); Globulin 3.5 g/dL; Glucose 77 mg/dL (74-106); Sodium 135 mmol/L (136-145); Total Protein 6.8 g/dL (6.4-8.2)
[2023-09-08] MEDS: HEPARIN SODIUM (PORCINE) PF LOCK FLUSH 500 UNIT/5 ML SYRINGE IV (11:10)
[2023-09-08 11:30] LABS: Basophils Percent Auto 0.3 % (0.2-2.0); Eosinophils Absolute Auto 0.2 10^3/uL (0.0-0.7); Eosinophils Percent Auto 1.5 % (0.9-7.0); Hematocrit 32.8 % (36.0-48.0); Hemoglobin 10.1 g/dL (12.0-16.0); Immature Granulocytes Abs Auto 0.06 10^3/uL (0.00-0.03); Immature Granulocytes Pct Auto 0.6 % (0.0-0.5); Lymphocytes Absolute Auto 1.6 10^3/uL (1.2-3.8); Lymphocytes Percent Auto 16.2 % (20.5-60.0); Mean Corpuscular HGB Conc 30.8 g/dL (29.9-35.2); Mean Corpuscular Hemoglobin 30.3 pg (26.7-34.0); Mean Corpuscular Volume 98.5 fL (81.0-99.0); Mean Platelet Volume 9.3 fL (9.5-13.5); Monocytes Absolute Auto 0.7 10^3/uL (0.3-0.8); Monocytes Percent Auto 6.6 % (1.7-12.0); Neutrophils Absolute Auto 7.4 10^3/uL (1.4-6.5); Neutrophils Percent Auto 74.8 % (43.0-75.0); Platelet Count 342 10^3/uL (150-450); Red Blood Count 3.33 10^6/uL (4.20-5.40); White Blood Count 9.9 10^3/uL (4.0-11.0)
[2023-09-08 11:41] LABS: Alanine Aminotransferase 25 U/L (14-59); Albumin Level 3.6 g/dL (3.4-5.0); Alkaline Phosphatase 275 U/L (46-116); Aspartate Amino Transferase 26 U/L (15-37); BUN Creatinine Ratio 35.2; Bilirubin Total 0.3 mg/dL (0.2-1.0); Carbon Dioxide 27.7 mmol/L (21.0-32.0); Chloride 98 mmol/L (98-107); Estimated GFR (African America 34 (>=60); Estimated GFR (Non-African Ame 28 (>=60); Globulin 3.6 g/dL; Glucose 98 mg/dL (74-106); Potassium 3.7 mmol/L (3.5-5.1); Sodium 135 mmol/L (136-145); Total Protein 7.2 g/dL (6.4-8.2)
[2023-09-08 13:17] VITALS: BP 152/92; PULSE 71; RESP 18; TEMP 36.1; O2SAT 94
--- NOTE | 2023-09-08 13:19 | PC.NURSE ---
1050 Arrival ambulatory to chair 1. alert oriented, offers no complaints. Rt chest port accessed using 20 ga james, excellent blood return, 10 ml wasted. labs drawn and sent to lab. 1105 port flushed with 20 ml of saline, followed by hep lock solution. deaccessed, bandaid applied to site. released ambulatory
--- NOTE | 2023-09-14 15:42 | PC.NURSE ---
1525 arrival ambulatory to chair 1. rt chest port accessed utilizing #19 ga 1 inch needle. excellent blood return noted, labs drawn and sent to lab, flushed with ns followed by heparin lock solution. deaccessed, cottonball and bandaid applied released ambulatory
[2023-09-14 15:55] LABS: Basophils Percent Auto 0.3 % (0.2-2.0); Eosinophils Absolute Auto 0.2 10^3/uL (0.0-0.7); Eosinophils Percent Auto 1.7 % (0.9-7.0); Hematocrit 31.3 % (36.0-48.0); Hemoglobin 9.7 g/dL (12.0-16.0); Immature Granulocytes Abs Auto 0.05 10^3/uL (0.00-0.03); Immature Granulocytes Pct Auto 0.6 % (0.0-0.5); Lymphocytes Absolute Auto 1.5 10^3/uL (1.2-3.8); Lymphocytes Percent Auto 17.6 % (20.5-60.0); Mean Corpuscular Hemoglobin 31.1 pg (26.7-34.0); Mean Corpuscular Volume 100.3 fL (81.0-99.0); Mean Platelet Volume 9.1 fL (9.5-13.5); Monocytes Absolute Auto 0.7 10^3/uL (0.3-0.8); Monocytes Percent Auto 7.4 % (1.7-12.0); Neutrophils Absolute Auto 6.3 10^3/uL (1.4-6.5); Neutrophils Percent Auto 72.4 % (43.0-75.0); Platelet Count 308 10^3/uL (150-450); Red Blood Count 3.12 10^6/uL (4.20-5.40); Red Cell Distribution Width 13.2 % (11.0-15.0); White Blood Count 8.8 10^3/uL (4.0-11.0)
[2023-09-14 16:27] LABS: Alanine Aminotransferase 24 U/L (14-59); Albumin Globulin Ratio 0.9; Albumin Level 3.3 g/dL (3.4-5.0); Alkaline Phosphatase 264 U/L (46-116); Anion Gap 16.1; Aspartate Amino Transferase 28 U/L (15-37); BUN Creatinine Ratio 29.4; Bilirubin Total 0.3 mg/dL (0.2-1.0); Calcium 8.3 mg/dL (8.5-10.1); Carbon Dioxide 24.9 mmol/L (21.0-32.0); Chloride 100 mmol/L (98-107); Estimated GFR (African America 35 (>=60); Estimated GFR (Non-African Ame 29 (>=60); Globulin 3.5 g/dL; Glucose 76 mg/dL (74-106); Sodium 137 mmol/L (136-145); Total Protein 6.8 g/dL (6.4-8.2)
[2023-09-21] MEDS: HEPARIN SODIUM (PORCINE) PF LOCK FLUSH 500 UNIT/5 ML SYRINGE IV (13:25)
--- NOTE | 2023-09-21 13:45 | PC.NURSE ---
1310: Pt. to [facility] amb. for blood draw. Seated in recliner. Using sterile technique, 19 gauge Stovall needle used to access right ant. chest port. Port positional. First attempt unsuccessful. Able to access easily on second attempt. Flushes easily with good blood return. Blood obtained for ordered labs. Port flushed with saline and Heparin, port de-accessed. No bleeding observed. Site covered with cotton ball. Pt. tolerated with minmal c/o. 1325: Pt. d/c'd amb. to home.
[2023-09-21 13:57] LABS: Basophils Percent Auto 0.1 % (0.2-2.0); Eosinophils Absolute Auto 0.1 10^3/uL (0.0-0.7); Eosinophils Percent Auto 1.2 % (0.9-7.0); Hematocrit 30.3 % (36.0-48.0); Hemoglobin 9.3 g/dL (12.0-16.0); Immature Granulocytes Abs Auto 0.03 10^3/uL (0.00-0.03); Immature Granulocytes Pct Auto 0.4 % (0.0-0.5); Lymphocytes Absolute Auto 1.1 10^3/uL (1.2-3.8); Lymphocytes Percent Auto 14.5 % (20.5-60.0); Mean Corpuscular HGB Conc 30.7 g/dL (29.9-35.2); Mean Corpuscular Hemoglobin 30.8 pg (26.7-34.0); Mean Corpuscular Volume 100.3 fL (81.0-99.0); Mean Platelet Volume 9.5 fL (9.5-13.5); Monocytes Absolute Auto 0.6 10^3/uL (0.3-0.8); Monocytes Percent Auto 7.5 % (1.7-12.0); Neutrophils Absolute Auto 5.9 10^3/uL (1.4-6.5); Neutrophils Percent Auto 76.3 % (43.0-75.0); Platelet Count 292 10^3/uL (150-450); Red Blood Count 3.02 10^6/uL (4.20-5.40); Red Cell Distribution Width 13.2 % (11.0-15.0); White Blood Count 7.7 10^3/uL (4.0-11.0)
[2023-09-21 14:11] LABS: Alanine Aminotransferase 23 U/L (14-59); Albumin Globulin Ratio 0.8; Albumin Level 3.1 g/dL (3.4-5.0); Alkaline Phosphatase 300 U/L (46-116); Anion Gap 13.6; Aspartate Amino Transferase 25 U/L (15-37); BUN Creatinine Ratio 33.5; Bilirubin Total 0.3 mg/dL (0.2-1.0); Calcium 8.5 mg/dL (8.5-10.1); Carbon Dioxide 26.2 mmol/L (21.0-32.0); Chloride 100 mmol/L (98-107); Estimated GFR (African America 38 (>=60); Estimated GFR (Non-African Ame 31 (>=60); Globulin 3.8 g/dL; Glucose 77 mg/dL (74-106); Potassium 3.8 mmol/L (3.5-5.1); Sodium 136 mmol/L (136-145); Total Protein 6.9 g/dL (6.4-8.2)
== END 2023-09-24 23:59 | disposition home or self-care (01) ==
LOC: INF 07:28
PROVIDERS: PCP Family Medicine; Visit Provider Family Medicine
DX: E87.1 Hypo-osmolality and hyponatremia (principal); I10 Essential (primary) hypertension; D64.9 Anemia, unspecified
CPT/HCPCS: 36591; 80053; 83930; 85025

== ENCOUNTER 2023-09-29 14:27 | Emergency (ER) | payer MEDICARE, MEDICAID, SELFPAY ==
[2023-09-29] VITALS (43 sets, daily range): BP systolic 118–164; BP diastolic 77–93; PULSE 70–104; TEMP 36.7; O2SAT 95–100; BMI 34.4
--- NOTE | 2023-09-29 14:46 | CT_ITS ---
The [address] [address] Patient Name: JOSE CLEMENTS MRN: [id number] date: 1960 Sex: F Assigned Patient Location: ER Current Patient Location: ER Accession/Order Number: [id number] Exam Date: 09/29/2023 15:20 Report Date: 09/29/2023 16:22 At the request of: ELSA HUGHES Procedure: CT head/brain wo con EXAM: CT head/brain wo con HISTORY: fall COMPARISON: CT brain 11/16/2022. TECHNIQUE: Axial CT scans through the head were obtained without IV contrast administration. Dose reduction techniques were achieved by using: automated exposure control and/or adjustment of mA and /or kV according to patient size and/or use of iterative reconstruction technique. FINDINGS: There is no evidence of acute intracranial hemorrhage or abnormal extra-axial fluid collection. No mass effect or midline shift is seen. There is no evidence of large acute territorial infarction. There is no hydrocephalus. The cortical sulci and ventricles are within normal limits. Mild decreased white matter attenuation is noted. To the limit of CT, the posterior fossa appears unremarkable. No definite acute fracture is identified. Soft tissues are unremarkable. The visualized orbits show no abnormality. The visualized paranasal sinuses show no air-fluid level. Mastoid air cells are clear. CT/CT head/brain wo con IMPRESSION: No CT evidence of acute intracranial abnormality. Mild chronic microvascular ischemic changes. Electronically authenticated by: TABBY UNLU Date: 09/29/2023 16:22
--- NOTE | 2023-09-29 14:46 | CT_ITS ---
The [address] [address] Patient Name: JOSE CLEMENTS MRN: [id number] date: 1960 Sex: F Assigned Patient Location: ER Current Patient Location: ER Accession/Order Number: [id number] Exam Date: 09/29/2023 15:20 Report Date: 09/29/2023 16:15 At the request of: ELSA HUGHES Procedure: CT cervical spine wo con Exam: Radiographs: XR chest 1V, XR hip LT 2V w/ pelvis Reason for exam: fall Comparison: Chest x-ray dated 06/29/2023 CT/CT cervical spine wo con IMPRESSION: Linear atelectasis or scarring in the lower lungs bilaterally. Right subclavian approach port with tip in the mid SVC. Pulmonary venous hypertension. Remainder of the chest is unremarkable. No radiographically evident fracture. Lumbar spine degenerative change. IVC filter. Abdominal wall postoperative change. Mild degenerative changes of both hips. Remainder of the left hip and pelvic radiographs is unremarkable. EXAM: CT scan of the cervical spine without contrast. Dose reduction technique used: Automated exposure control and/or adjustment of the mA and/or kV according to patient size and/or use of iterative reconstruction technique. REASON FOR EXAM: fall COMPARISON: None FINDINGS: Acute nondisplaced type II dens fracture. No other cervical spine fractures. Cervical spine degenerative changes with multilevel bilateral mild and moderate neural foraminal stenoses. Anterolisthesis of C5 on C6 on a degenerative basis. No substantial spinal canal stenoses. Remainder unremarkable. IMPRESSION: Acute nondisplaced type II dens fracture. Electronically authenticated by: SIRIA ARDON Date: 09/29/2023 16:15
--- NOTE | 2023-09-29 14:48 | ECG_ITS ---
The [facility] Test Date: 2023-09-29 Pat Name: JOSE CLEMENTS Department: Room: - Gender: Female Shape Hand: : 1960 Requested By: ANGLE SANTANA Order Number: [id number] Reading MD: ANGLE SANTANA Measurements Intervals [place] Rate: 68 P: 56 CA: 188 QRS: 13 QRSD: 102 T: 3 QT: 400 QTc: 416 Interpretive Statements 1100 Sinus rhythm Non-Specific T wave inversion in III 9110 normal ECG Compared to ECG 06/29/2023 16:14:50 No significant changes Electronically Signed On 09-30-2023 8:27:04 EDT by ANGLE SANTANA
[2023-09-29 15:04] LABS: Basophils Percent Auto 0.3 % (0.2-2.0); Eosinophils Absolute Auto 0.1 10^3/uL (0.0-0.7); Eosinophils Percent Auto 0.9 % (0.9-7.0); Hemoglobin 8.9 g/dL (12.0-16.0); Immature Granulocytes Abs Auto 0.06 10^3/uL (0.00-0.03); Immature Granulocytes Pct Auto 0.6 % (0.0-0.5); Lymphocytes Percent Auto 8.7 % (20.5-60.0); Mean Corpuscular HGB Conc 30.7 g/dL (29.9-35.2); Mean Corpuscular Hemoglobin 30.8 pg (26.7-34.0); Mean Corpuscular Volume 100.3 fL (81.0-99.0); Mean Platelet Volume 8.9 fL (9.5-13.5); Monocytes Absolute Auto 0.5 10^3/uL (0.3-0.8); Monocytes Percent Auto 4.9 % (1.7-12.0); Neutrophils Absolute Auto 9.2 10^3/uL (1.4-6.5); Neutrophils Percent Auto 84.6 % (43.0-75.0); Platelet Count 296 10^3/uL (150-450); Red Blood Count 2.89 10^6/uL (4.20-5.40); Red Cell Distribution Width 13.4 % (11.0-15.0); White Blood Count 10.9 10^3/uL (4.0-11.0)
--- NOTE | 2023-09-29 15:06 | PC.NURSE ---
bruise to top of left side forehead and bruised left eye, pt is alert and appropriate, speech is clear at this time
--- NOTE | 2023-09-29 15:20 | XR_ITS ---
The [address] [address] Patient Name: JOSE CLEMENTS MRN: [id number] date: 1960 Sex: F Assigned Patient Location: ER Current Patient Location: ER Accession/Order Number: [id number] Exam Date: 09/29/2023 15:30 Report Date: 09/29/2023 16:15 At the request of: ELSA HUGHES Procedure: XR hip LT 2V w/ pelvis Exam: Radiographs: XR chest 1V, XR hip LT 2V w/ pelvis Reason for exam: fall Comparison: Chest x-ray dated 06/29/2023 XR/XR hip LT 2V w/ pelvis IMPRESSION: Linear atelectasis or scarring in the lower lungs bilaterally. Right subclavian approach port with tip in the mid SVC. Pulmonary venous hypertension. Remainder of the chest is unremarkable. No radiographically evident fracture. Lumbar spine degenerative change. IVC filter. Abdominal wall postoperative change. Mild degenerative changes of both hips. Remainder of the left hip and pelvic radiographs is unremarkable. EXAM: CT scan of the cervical spine without contrast. Dose reduction technique used: Automated exposure control and/or adjustment of the mA and/or kV according to patient size and/or use of iterative reconstruction technique. REASON FOR EXAM: fall COMPARISON: None FINDINGS: Acute nondisplaced type II dens fracture. No other cervical spine fractures. Cervical spine degenerative changes with multilevel bilateral mild and moderate neural foraminal stenoses. Anterolisthesis of C5 on C6 on a degenerative basis. No substantial spinal canal stenoses. Remainder unremarkable. IMPRESSION: Acute nondisplaced type II dens fracture. Electronically authenticated by: SIRIA ARDON Date: 09/29/2023 16:15
--- NOTE | 2023-09-29 15:21 | ED.GENADUL1 ---
HPI HPI - General Adult General Chief complaint: Head Injury Stated complaint: HEADACHE AFTER FALL >6days Time Seen by Provider: 09/29/23 14:46 Source: patient and family Mode of arrival: Wheelchair Limitations: no limitations History of Present Illness HPI narrative: Patient is a 63-year-old female who is presenting to the Emergency Room with chief complaint of a fall on September 12 and also September 22. Patient says a September 12 she tripped over her rachel and fell face forward hitting her head. Patient is on a liquids for history of deep vein thromboses. Patient had bruising and swelling to left forehead, but she did not come to the Emergency Room for evaluation. Patient says on September 22 she is going to stand up from a chair and fell forward again secondary to vasovagal syncope. Patient has long standing history of vasovagal syncope and has had multiple testing ffor this in the Emergency Room, hospital, and by her PCP. Patient has been having ongoing headache since her falls. Patient went to the PCP office today secondary to falls, blood thinners, patient was sent to the Emergency Room for evaluation by Dr. Godinez. Patient is at bedside. Patient does take her a liquids daily. Patient takes Xanax, fentanyl patch, Percoceet, and other psychiatric medication as well. Patient's having some mild lower back pain and left hip pain. Patient has no other acute complaints at this time. Patient has had no falls in the past 6 days, last fall was September 22. . All systems are negative except as noted/marked. All systems reviewed and otherwise negative. . Nurses note and vital signs reviewed and patient is not hypoxic. General: The patient appears well and in no apparent distress. Patient is resting comfortably on cart. Patient is not toxic, lethargic, or listless Skin: Warm, dry, no pallor noted. There is no rash noted. No petechiae, purpura. Head: Normocephalic, atraumatic Eye: Normal conjunctiva, no drainage, EOMI. PERRL Ears, Nose, Mouth, and Throat: oral mucosa is moist. Nares patent. Mouth without vesicles. Cardiovascular: Regular Rate and Rhythm, no murmur, gallop, rub Respiratory: Patient is in no distress, no accessory muscle use, lungs are clear to auscultation, no wheezing, rales or rhonchi Back: non-tender, no CVA tenderness bilaterally to percussion. No CT LS midline pain GI: soft, no tenderness to palpation, no masses appreciated. No rebound, guarding, or rigidity noted. No flank pain bilateral, No distention Musculoskeletal: Patient has full range of motion of all of the extremities, no motor, sensory, or focal neurological deficits Neurological: A&O x3, normal speech Psychiatric: Cooperative Related Data Home Medications ?Medication ?Instructions ?Recorded ?Confirmed alprazolam 0.5 mg tablet 0.5 mg PO BID PRN anxiety 12/08/22 09/29/23 amitriptyline 150 mg tablet 300 mg PO BEDTIME 12/08/22 09/29/23 calcium acetate(phosphat bind) 667 667 mg PO BID 12/08/22 07/20/23 mg capsule fentanyl 100 mcg/hr transdermal 1 patch transdermal Q72H 12/08/22 09/29/23 patch levothyroxine 100 mcg tablet 100 mcg PO DAILY 12/08/22 09/29/23 linaclotide 290 mcg capsule 290 mcg PO DAILY 12/08/22 09/29/23 (Linzess) liothyronine 25 mcg tablet 25 mcg PO DAILY 12/08/22 07/20/23 oxycodone-acetaminophen 5 mg-325 2 tab PO Q6H PRN pain 12/08/22 09/29/23 mg tablet primidone 50 mg tablet 150 mg PO BEDTIME 12/08/22 09/29/23 tizanidine 4 mg tablet (Zanaflex) 4 mg PO Q6H PRN muscle spasticity 12/08/22 09/29/23 aripiprazole 2 mg tablet (Abilify) 2 mg PO DAILY 01/23/23 09/29/23 bumetanide 1 mg tablet 1 mg PO TID PRN SWELLING 01/23/23 09/29/23 sacubitril 97 mg-valsartan 103 mg 1 tab PO BID 01/23/23 09/29/23 tablet (Entresto) pramipexole 1 mg tablet (Mirapex) 1 mg PO .evening 01/24/23 09/29/23 spironolactone 50 mg tablet 50 mg PO DAILY PRN swelling 01/24/23 09/29/23 (Aldactone) butorphanol 10 mg/mL nasal spray 1 spray intranasal .QD PRN pain 02/03/23 09/29/23 fluticasone furoate 100 1 inh inhalation Q24H 02/03/23 09/29/23 mcg-vilanterol 25 mcg/dose inhalation powder (Breo Ellipta) apixaban 2.5 mg tablet (Eliquis) 2.5 mg PO BID 07/20/23 09/29/23 duloxetine 60 mg capsule,delayed 120 mg PO DAILY 07/20/23 09/29/23 release (Cymbalta) sevelamer carbonate 800 mg tablet 800 mg PO TID 07/20/23 09/29/23 azelastine 0.05 % eye drops 1 drp ophthalmic (eye) DAILY 09/29/23 09/29/23 desvenlafaxine succinate 50 mg 50 mg PO DAILY 09/29/23 09/29/23 tablet,extended release 24 hr diclofenac sodium 1 % topical gel topical 09/29/23 doxepin 10 mg capsule 10 mg PO BID 09/29/23 09/29/23 escitalopram oxalate 20 mg tablet 20 mg PO DAILY 09/29/23 09/29/23 pantoprazole 40 mg tablet,delayed 40 mg PO DAILY 09/29/23 09/29/23 release Previous Rx's ?Medication ?Instructions ?Recorded pregabalin 50 mg capsule (Lyrica) 50 mg PO BID #60 caps 07/22/23 Allergies Allergy/AdvReac Type Severity Reaction Status Date / Time povidone-iodine Allergy Intermediate Verified 09/29/23 14:41 [From Betadine] amoxicillin [From Augmentin] Allergy Mild Vomiting Verified 09/29/23 14:41 clavulanic acid Allergy Mild Vomiting Verified 09/29/23 14:41 [From Augmentin] Sulfa (Sulfonamide Allergy Mild Vomiting Verified 09/29/23 14:41 Antibiotics) ciprofloxacin [From Cipro] Allergy Unknown Verified 09/29/23 14:41 Opioid HPI Opioid Management Most Recent Opioid Data: Last Pain Scale 6 07/28/23 12:17 [facility] Medical History (Updated 09/29/23 @ 20:14 by Baljinder Meek MD) Acute kidney injury ?N17.9 - Acute kidney failure, unspecified (ICD-10) Edema of lower leg due to peripheral venous insufficiency ?I87.2 - Venous insufficiency (chronic) (peripheral) (ICD-10) ?R60.0 - Localized edema (ICD-10) Depression ?F32.A - Depression, unspecified (ICD-10) Gastroenteritis ?K52.9 - Noninfective gastroenteritis and colitis, unspecified (ICD-10) Migraine without aura and without status migrainosus, not intractable ?G43.009 - Migraine without aura, not intractable, without status migrainosus (ICD-10) Chronic heart failure with preserved ejection fraction (HFpEF) ?I50.32 - Chronic diastolic (congestive) heart failure (ICD-10) Chest pain ?R07.9 - Chest pain, unspecified (ICD-10) Dyspnea ?R06.00 - Dyspnea, unspecified (ICD-10) Fluid overload ?E87.70 - Fluid overload, unspecified (ICD-10) Osteoarthritis ?M19.90 - Unspecified osteoarthritis, unspecified site (ICD-10) Anemia ?D64.9 - Anemia, unspecified (ICD-10) Anxiety ?F41.9 - Anxiety disorder, unspecified (ICD-10) Stroke ?I63.9 - Cerebral infarction, unspecified (ICD-10) Acid reflux ?K21.9 - Gastro-esophageal reflux disease without esophagitis (ICD-10) Hypothyroid ?E03.9 - Hypothyroidism, unspecified (ICD-10) Kidney failure ?N19 - Unspecified kidney failure (ICD-10) COPD (chronic obstructive pulmonary disease) ?J44.9 - Chronic obstructive pulmonary disease, unspecified (ICD-10) Asthma ?J45.909 - Unspecified asthma, uncomplicated (ICD-10) CHF (congestive heart failure) ?I50.9 - Heart failure, unspecified (ICD-10) Irregular heart beat ?I49.9 - Cardiac arrhythmia, unspecified (ICD-10) HTN (hypertension) ?I10 - Essential (primary) hypertension (ICD-10) Heart attack ?I21.9 - Acute myocardial infarction, unspecified (ICD-10) Lumbar spondylosis ?M47.816 - Spondylosis without myelopathy or radiculopathy, lumbar region (ICD-10) Surgical History H/O hysterectomy with oophorectomy H/O gastric bypass ?Z98.84 - Bariatric surgery status (ICD-10) History of hernia repair ?Z98.890 - Other specified postprocedural states (ICD-10) ?Z87.19 - Personal history of other diseases of the digestive system (ICD-10) History of rotator cuff surgery ?Z98.890 - Other specified postprocedural states (ICD-10) History of right knee joint replacement ?Z96.651 - Presence of right artificial knee joint (ICD-10) History of appendectomy ?Z90.49 - Acquired absence of other specified parts of digestive tract (ICD-10) Hx of cholecystectomy ?Z90.49 - Acquired absence of other specified parts of digestive tract (ICD-10) Family History Father Family history of CHF (congestive heart failure) Family history of diabetes mellitus Family history of hypertension Family history of myocardial infarction Family history of stroke Mother Family history of CHF (congestive heart failure) Family history of COPD (chronic obstructive pulmonary disease) Family history of diabetes mellitus Family history of hypertension Family history of myocardial infarction Family history of stroke Social History Within the past year, how often did you have a drink containing alcohol: never Within the past year, how often did you have six or more drinks on one occasion: never Score interpretation: A score less than 3 is consistent with normal alcohol consumption. 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 Highest level of school completed/degree received: Associate degree: academic program Are you now , , , , never or living with a partner: In a typical week, how many times do you talk on the telephone with family, friends, or neighbors: 3 or more times per week How often do you get together with friends or relatives: twice per week How often do you attend mormon or synagogue services: 4 or more times per year Do you belong to any clubs or organizations such as mormon groups unions, fraternal or athletic groups, or school groups: no Total score: 3 Score interpretation: A score of greater than or equal to 2 indicates the lowest level of social isolation. Little interest or pleasure in doing things: not at all Feeling down, depressed, or hopeless: several days Feel stressed/tense/nervous/anxious/difficulty sleeping: to some extent Life stressors: recent of family or friend Do you think of yourself as: straight/heterosexual Gender Identity: female Exam Constitutional Vital Signs, click to edit/add: Last Vital Signs Temp 98.1 F 09/29/23 14:35 Pulse 75 09/29/23 18:10 Resp 16 09/29/23 14:35 BP 132/83 09/29/23 18:01 Pulse Ox 100 09/29/23 18:10 O2 Del Method Room Air 09/29/23 14:35 Course Vital Signs Vital signs: Vital Signs Temperature 98.1 F 09/29/23 14:35 Pulse Rate 70 09/29/23 14:35 Respiratory Rate 16 09/29/23 14:35 Blood Pressure 164/89 H 09/29/23 14:35 Pulse Oximetry 97 09/29/23 14:35 Oxygen Delivery Method Room Air 09/29/23 14:35 Temperature 98.1 F 09/29/23 14:35 Pulse Rate 75 09/29/23 18:10 Respiratory Rate 16 09/29/23 14:35 Blood Pressure 132/83 09/29/23 18:01 Pulse Oximetry 100 09/29/23 18:10 Oxygen Delivery Method Room Air 09/29/23 14:35 Medical Decision Making MDM Narrative Medical decision making narrative: Patient's hemoglobin was 8.9. Patient's BUN and creatinine were 62/1.9. This is just slightly higher than her normal BUN and creatinine, patient has kidney disease. Patient report was called to me from the radiologist stating the patient had a type II dens fracture. After this was called to me by radiologist, 0, patient was placed in a Grundy collar by myself and LEIDY MCGEE. We do not have any type mark Miammi J grasping collars. Patient was made aware and explained to the patient and a type II dens fracture. I initially called and spoke to Dr. Rowe from [facility] about patient being transferred to [facility] for definitive treatment. Patient has had surgery at [facility] before by Dr. Da Calle. Dr. Rowe was not accepting of the patient in transfer, recommending going to tertiary care center. I spoke to Dr. Dubois at 1710, neurosurgeon from [facility]. Before I spoke to this neurosurgeon, we attempted to go to [facility] for transfer this patient has been admitted there before but they are on diversion, even to trauma. Dr Dubois and I discussed this patient several times in the phone. Dr Dubois was able to review the imaging of the sagittal bone view. He stated the patient could be discharged with collar and he can follow up with the patient in the office. He recommended patient be placed in a as[place] vista Cervical collar that could be placed. The orthotic medical supply company or go to see Dr Dubois in his office next week. I then spent 10 minutes on the phone with [employer] supply store in [place] theey do not have access To a Stokes J or aspirin collar. I was given information for patient to follow up to [facility] in [place] and they would be open Monday for follow-up. After speaking to the patient, sanjana and nurse Forbes RN; there is a concern and patient will be discharged, her compliance with wearing the cervical collar, also if she would have another vasovagal syncopal episode and hhit her head again, causing more damage to her dens and possible causing paralysis or other neurological dysfunction. Patiient agreed with being admitted and trannsferring and surgery if needed. Patient agreed to concern of falling at home again this weekend before she sees a neurosurgeon because she doees have frequent falls. Patient also has a history of cervical stenosis on previous MRIs. I then spoke to the CAR Davila who is covering are orthopedic spine surgeon who is music composition teacher at 1800 and 181. She was able to review the video, and she followed up with Dr. Morgan recommendations. Dr. Feliciano is not able to see her today or this weekend at [facility]. Patient was needed to be transferred to [facility] in [place] or to [facility] Patient would rather go to [facility] in [place]. I spoke to Dr. Dubois at 1810 Again, and he is going for patient to be admitted to [facility], she can have a medical workup and he is agreeing to being consultation. 1832 ACCESS transfer line called me again and stated they would be working on admission for this patient and reaching out to the hospitalist. 1905 I was able to speak to the hospitalist and [facility], Dr. Leo Gaspar. She is agreeing and admission for patient and is aware that Dr. Dubois will be in consultation as well. We are now currently waiting for a bed number before we can set up transportation. 1919 patient was transitioned to Dr. Longoria. We're currently waiting for final bed number for admission at [facility] and bead picker time by ambulance. Patient is having more pain and muscle spasm, Dr. longoria will order something morre for pain and muscle spasm. Patient is able to eat and drink for dinner, Leidy RN will help get something for her to eat and drink as well. Follow update was given to patient and on admission, hospitalist I have talked to along with the neurosurgeon, in the admission and transfer to [facility] tonight. Patient and are thankful and understand. Multiple, multiple phone calls have been made, speaking to [address] Rowe, Dr. Dubois, and Dr. Morgan's CAR Davila. Multiple transfer lines have been discussed with his well, along with [employer], the medical supply store. Critical care time 55 minutes exclusive from separate billable procedures that were performed. The following was considered in the determination of critical care but not limited to the level of medical decision making, intensive cardiac and/or respiratory monitoring, frequent vital sign monitoring, evaluation of laboratory studies, evaluation of radiographic studies, oxygen monitoring, and constant monitoring and speaking to family at bedside Lab Data Lab results reviewed: Yes I reviewed the patient's lab results Labs: Lab Results 09/29/23 Range/Units 14:54 WBC 10.9 (4.0-11.0) 10^3/uL RBC 2.89 L (4.20-5.40) 10^6/uL Hgb 8.9 L (12.0-16.0) g/dL Hct 29.0 L (36.0-48.0) % MCV 100.3 H (81.0-99.0) fL MCH 30.8 (26.7-34.0) pg MCHC 30.7 (29.9-35.2) g/dL RDW 13.4 (11.0-15.0) % Plt Count 296 (150-450) 10^3/uL MPV 8.9 L (9.5-13.5) fL Neut % (Auto) 84.6 H (43.0-75.0) % Lymph % (Auto) 8.7 L (20.5-60.0) % [place] % (Auto) 4.9 (1.7-12.0) % Eos % (Auto) 0.9 (0.9-7.0) % Baso % (Auto) 0.3 (0.2-2.0) % Neut # (Auto) 9.2 H (1.4-6.5) 10^3/uL Lymph # (Auto) 1.0 L (1.2-3.8) 10^3/uL [place] # (Auto) 0.5 (0.3-0.8) 10^3/uL Eos # (Auto) 0.1 (0.0-0.7) 10^3/uL Baso # (Auto) 0.0 (0.0-0.1) 10^3/uL Abs Immat Gran (auto) 0.06 H (0.00-0.03) 10^3/uL Imm/Tot Granulo (auto) 0.6 H (0.0-0.5) % PT 9.9 (9.0-11.6) sec INR 0.93 APTT 48.0 H* (22.3-36.2) sec Sodium 135 L (136-145) mmol/L Potassium 4.2 (3.5-5.1) mmol/L Chloride 100 (98-107) mmol/L Carbon Dioxide 26.0 (21.0-32.0) mmol/L Anion Gap 13.2 BUN 62.0 H (7.0-18.0) mg/dL Creatinine 1.91 H (0.55-1.02) mg/dL Est GFR ( Amer) 32 L (>=60) Est GFR (Non-Af Amer) 27 L (>=60) BUN/Creatinine Ratio 32.5 Glucose 94 (74-106) mg/dL Calcium 8.8 (8.5-10.1) mg/dL Total Bilirubin 0.3 (0.2-1.0) mg/dL AST 25 (15-37) U/L ALT 26 (14-59) U/L Alkaline Phosphatase 342 H (46-116) U/L Troponin I High Sens 6.7 (4.0-51.3) pg/mL Total Protein 6.7 (6.4-8.2) g/dL Albumin 3.0 L (3.4-5.0) g/dL Globulin 3.7 g/dL Albumin/Globulin Ratio 0.8 ECG Data Attestation: I personally reviewed and interpreted this ECG as follows: (EKG interpretation. Normal sinus rhythm at 68 beats a minute. Normal axis deviation. No acute ST elevation, no acute ectopy. QTc of 416.) Discharge Plan Discharge Chief Complaint: Head Injury Clinical Impression: Chronic pain, Anemia of chronic disease, Head injury due to trauma, Chronic kidney disease, Nondisplaced type II dens fracture Patient Disposition: [facility] Time of Disposition Decision: 19:05 Discharge Location: [facility] Condition: Serious
[2023-09-29 15:25] LABS: INR 0.93; Prothrombin Time 9.9 sec (9.0-11.6)
[2023-09-29 15:32] LABS: Alanine Aminotransferase 26 U/L (14-59); Albumin Globulin Ratio 0.8; Alkaline Phosphatase 342 U/L (46-116); Anion Gap 13.2; Aspartate Amino Transferase 25 U/L (15-37); BUN Creatinine Ratio 32.5; Bilirubin Total 0.3 mg/dL (0.2-1.0); Calcium 8.8 mg/dL (8.5-10.1); Chloride 100 mmol/L (98-107); Estimated GFR (African America 32 (>=60); Estimated GFR (Non-African Ame 27 (>=60); Globulin 3.7 g/dL; Glucose 94 mg/dL (74-106); Potassium 4.2 mmol/L (3.5-5.1); Sodium 135 mmol/L (136-145); Total Protein 6.7 g/dL (6.4-8.2)
[2023-09-29 15:33] LABS: Troponin I High Sensitivity 6.7 pg/mL (4.0-51.3)
[2023-09-29] MEDS: BUTALB/ACETAMINOPHEN/CAFFEINE 50-325-40MG TABLET 1 TAB PO (15:44)
[2023-09-29] MEDS: ONDANSETRON PF 4 MG/2 ML VIAL IV (16:56)
[2023-09-29] MEDS: MORPHINE SULFATE 4 MG/ML VIAL IV (16:57)
[2023-09-29] MEDS: HYDROMORPHONE HCL 1 MG/ML CARTRIDGE 0.5 MG IVP (19:55)
[2023-09-29] MEDS: DIAZEPAM 10 MG/2 ML SYRINGE 2 MG IV (19:56)
[2023-09-29] MEDS: MORPHINE SULFATE 2 MG/ML SYRINGE IV (23:14)
== END 2023-09-29 23:14 | disposition short-term general hospital (02) ==
PROVIDERS: Emergency Provider Emergency Medicine; PCP Family Medicine
DX: S12.112A Nondisplaced Type II dens fracture, initial encounter for closed fracture (principal); S09.8XXA Other specified injuries of head, initial encounter; I13.0 Hypertensive heart and chronic kidney disease with heart failure and stage 1 through stage 4 chronic kidney disease, or unspecified chronic kidney disease; N18.9 Chronic kidney disease, unspecified; G89.29 Other chronic pain; D64.9 Anemia, unspecified; W19.XXXA Unspecified fall, initial encounter; M19.90 Unspecified osteoarthritis, unspecified site; F41.9 Anxiety disorder, unspecified; K21.9 Gastro-esophageal reflux disease without esophagitis; E03.9 Hypothyroidism, unspecified; J44.9 Chronic obstructive pulmonary disease, unspecified; F32.A Depression, unspecified; I25.2 Old myocardial infarction; M48.02 Spinal stenosis, cervical region; M47.816 Spondylosis without myelopathy or radiculopathy, lumbar region; I50.32 Chronic diastolic (congestive) heart failure; I87.2 Venous insufficiency (chronic) (peripheral); Z90.710 Acquired absence of both cervix and uterus; Z79.899 Other long term (current) drug therapy; Z79.890 Hormone replacement therapy; Z90.49 Acquired absence of other specified parts of digestive tract; Z86.718 Personal history of other venous thrombosis and embolism; Z98.84 Bariatric surgery status; Z79.01 Long term (current) use of anticoagulants; Z86.73 Personal history of transient ischemic attack (TIA), and cerebral infarction without residual deficits; Z90.722 Acquired absence of ovaries, bilateral
CPT/HCPCS: 36415; 36591; 70450; 71045; 72125; 73502; 80053; 84484; 85025; 85610; 85730; 93005; 96374; 96375; 96376; 99285; J1170

== ENCOUNTER 2023-10-11 12:06 | Inpatient (IN) | payer MEDICARE, MEDICAID, SELFPAY ==
[2023-10-11] VITALS (9 sets, daily range): BP systolic 142–159; BP diastolic 85–97; PULSE 60–104; TEMP 36.4–36.6; O2SAT 94–98; BMI 38.2
--- NOTE | 2023-10-11 13:05 | P.HP_ITS ---
HPI H&P: HPI History of Present Illness Chief complaint: Fluid Overload Narrative: Patient was seen and evaluated in the office with follow-up from recent discharge for C2 fracture. They needed no surgical intervention, she was just observed to repeated CT scan which showed no progression of the alignment. I did adjust some of her medication recently stopping her Entresto. Uncertain reason why. Patient did not know either. Since stopping Entresto her edema has gotten much worse and she is 20 pounds up. I saw the patient, she was not really having any conversational dyspnea just significant difficulty ambulating secondary to the edema in her lower extremities. Lung exam was clear. Opioid HPI Opioid Management Most Recent Opioid Data: Last Pain Scale 8 10/11/23 16:39 Last Pain Assessment 10/11/23 16:39 Last MAR Pain Assessment 10/11/23 16:24 Last ORT Total Score 3 10/11/23 12:31 Last ORT Risk Category Low Risk 10/11/23 12:31 Review of Systems ROS Status of ROS 10 or more systems reviewed and unremark able except as noted in history and below [facility] Medical History (Updated 09/29/23 @ 20:14 by Baljinder Meek MD) Acute kidney injury ?N17.9 - Acute kidney failure, unspecified (ICD-10) Edema of lower leg due to peripheral venous insufficiency ?I87.2 - Venous insufficiency (chronic) (peripheral) (ICD-10) ?R60.0 - Localized edema (ICD-10) Depression ?F32.A - Depression, unspecified (ICD-10) Gastroenteritis ?K52.9 - Noninfective gastroenteritis and colitis, unspecified (ICD-10) Migraine without aura and without status migrainosus, not intractable ?G43.009 - Migraine without aura, not intractable, without status migrainosus (ICD-10) Chronic heart failure with preserved ejection fraction (HFpEF) ?I50.32 - Chronic diastolic (congestive) heart failure (ICD-10) Chest pain ?R07.9 - Chest pain, unspecified (ICD-10) Dyspnea ?R06.00 - Dyspnea, unspecified (ICD-10) Fluid overload ?E87.70 - Fluid overload, unspecified (ICD-10) Osteoarthritis ?M19.90 - Unspecified osteoarthritis, unspecified site (ICD-10) Anemia ?D64.9 - Anemia, unspecified (ICD-10) Anxiety ?F41.9 - Anxiety disorder, unspecified (ICD-10) Stroke ?I63.9 - Cerebral infarction, unspecified (ICD-10) Acid reflux ?K21.9 - Gastro-esophageal reflux disease without esophagitis (ICD-10) Hypothyroid ?E03.9 - Hypothyroidism, unspecified (ICD-10) Kidney failure ?N19 - Unspecified kidney failure (ICD-10) COPD (chronic obstructive pulmonary disease) ?J44.9 - Chronic obstructive pulmonary disease, unspecified (ICD-10) Asthma ?J45.909 - Unspecified asthma, uncomplicated (ICD-10) CHF (congestive heart failure) ?I50.9 - Heart failure, unspecified (ICD-10) Irregular heart beat ?I49.9 - Cardiac arrhythmia, unspecified (ICD-10) HTN (hypertension) ?I10 - Essential (primary) hypertension (ICD-10) Heart attack ?I21.9 - Acute myocardial infarction, unspecified (ICD-10) Lumbar spondylosis ?M47.816 - Spondylosis without myelopathy or radiculopathy, lumbar region (ICD-10) Surgical History H/O hysterectomy with oophorectomy H/O gastric bypass ?Z98.84 - Bariatric surgery status (ICD-10) History of hernia repair ?Z98.890 - Other specified postprocedural states (ICD-10) ?Z87.19 - Personal history of other diseases of the digestive system (ICD-10) History of rotator cuff surgery ?Z98.890 - Other specified postprocedural states (ICD-10) History of right knee joint replacement ?Z96.651 - Presence of right artificial knee joint (ICD-10) History of appendectomy ?Z90.49 - Acquired absence of other specified parts of digestive tract (ICD- 10) Hx of cholecystectomy ?Z90.49 - Acquired absence of other specified parts of digestive tract (ICD- 10) Family History Father Family history of CHF (congestive heart failure) Family history of diabetes mellitus Family history of hypertension Family history of myocardial infarction Family history of stroke Mother Family history of CHF (congestive heart failure) Family history of COPD (chronic obstructive pulmonary disease) Family history of diabetes mellitus Family history of hypertension Family history of myocardial infarction Family history of stroke Social History Within the past year, how often did you have a drink containing alcohol: never Within the past year, how often did you have six or more drinks on one occasion: never Score interpretation: A score less than 3 is consistent with normal alcohol consumption. 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 Highest level of school completed/degree received: Associate degree: occupational, technical, vocational program Are you now , , , , never or living with a partner: In a typical week, how many times do you talk on the telephone with family, friends, or neighbors: 3 or more times per week How often do you get together with friends or relatives: twice per week How often do you attend pentecostalism or oriental orthodox services: 4 or more times per year Do you belong to any clubs or organizations such as pentecostalism groups unions, emotion.me or athletic groups, or school groups: no Total score: 3 Score interpretation: A score of greater than or equal to 2 indicates the lowest level of social isolation. Little interest or pleasure in doing things: not at all Feeling down, depressed, or hopeless: several days Feel stressed/tense/nervous/anxious/difficulty sleeping: to some extent Life stressors: recent of family or friend Do you think of yourself as: straight/heterosexual Gender Identity: female Meds Home Medications and Allergies Home Medications ?Medication ?Instructions ?Recorded ?Confirmed ?Type alprazolam 0.5 mg tablet 0.5 mg PO BID PRN anxiety 12/08/22 10/11/23 History amitriptyline 150 mg tablet 300 mg PO BEDTIME 12/08/22 10/11/23 History calcium acetate(phosphat bind) 667 667 mg PO BID 12/08/22 10/11/23 History mg capsule fentanyl 100 mcg/hr transdermal 1 patch transdermal Q72H 12/08/22 10/11/23 History patch levothyroxine 100 mcg tablet 100 mcg PO DAILY 12/08/22 10/11/23 History linaclotide 290 mcg capsule 290 mcg PO DAILY 12/08/22 10/11/23 History (Linzess) oxycodone-acetaminophen 5 mg-325 2 tab PO Q6H PRN pain 12/08/22 10/11/23 History mg tablet primidone 50 mg tablet 150 mg PO BEDTIME 12/08/22 10/11/23 History tizanidine 4 mg tablet (Zanaflex) 4 mg PO Q6H PRN muscle spasticity 12/08/22 10/11/23 History aripiprazole 2 mg tablet (Abilify) 2 mg PO DAILY 01/23/23 10/11/23 History bumetanide 1 mg tablet 1 mg PO TID PRN SWELLING 01/23/23 10/11/23 History pramipexole 1 mg tablet (Mirapex) 1 mg PO .evening 01/24/23 10/11/23 History spironolactone 50 mg tablet 50 mg PO DAILY PRN swelling 01/24/23 10/11/23 History (Aldactone) butorphanol 10 mg/mL nasal spray 1 spray intranasal .QD PRN pain 02/03/23 10/11/23 History fluticasone furoate 100 1 inh inhalation Q24H 02/03/23 10/11/23 History mcg-vilanterol 25 mcg/dose inhalation powder (Breo Ellipta) apixaban 2.5 mg tablet (Eliquis) 2.5 mg PO BID 07/20/23 10/11/23 History sevelamer carbonate 800 mg tablet 800 mg PO TID 07/20/23 10/11/23 History pregabalin 50 mg capsule (Lyrica) 50 mg PO BID #60 caps 07/22/23 10/11/23 Rx azelastine 0.05 % eye drops 1 drp ophthalmic (eye) DAILY 09/29/23 10/11/23 History desvenlafaxine succinate 50 mg 50 mg PO DAILY 09/29/23 10/11/23 History tablet,extended release 24 hr diclofenac sodium 1 % topical gel 2 g topical .QD PRN 09/29/23 10/11/23 History PAIN/INFLAMMATION doxepin 10 mg capsule 10 mg PO BID 09/29/23 10/11/23 History escitalopram oxalate 20 mg tablet 20 mg PO DAILY 09/29/23 10/11/23 History pantoprazole 40 mg tablet,delayed 40 mg PO DAILY 09/29/23 10/11/23 History release Allergies Allergy/AdvReac Type Severity Reaction Status Date / Time povidone-iodine Allergy Intermediate Verified 09/29/23 14:41 [From Betadine] amoxicillin [From Augmentin] Allergy Mild Vomiting Verified 09/29/23 14:41 clavulanic acid Allergy Mild Vomiting Verified 09/29/23 14:41 [From Augmentin] Sulfa (Sulfonamide Allergy Mild Vomiting Verified 09/29/23 14:41 Antibiotics) ciprofloxacin [From Cipro] Allergy Unknown Verified 09/29/23 14:41 Exam Constitutional Documenting provider has reviewed patient's vital signs: yes Common normals: no apparent distress (No respiratory distress she is having some painful distress due to her neck) HENMT Common normals: normocephalic and head/scalp atraumatic (Neck brace in place) Chest Common normals: inspection of chest normal Respiratory Common normals: normal respiratory effort, no retractions, no use of accessory muscles and clear to auscultation bilaterally Cardio Common normals: regular rate and no murmurs; irregular rhythm GI Common normals: Normal to inspection, nondistended, normoactive bowel sounds pre sent Extremity Common normals: abnormal to inspection (3+ edema bilateral lower extremities pitting) Assessment and Plan Assessment and Plan (1) Chronic kidney disease: (2) Fluid overload: Plan Thank controlled hypertension, fluid overload secondary to recent adjustment in medications. The Voxxter obviously was working for her. Now she is 20 pounds up. She responded well in the past to a Bumex drip. Usually takes 2 to 3 days of this to complete the diuresis without making her chronic kidney disease progressed. Will start Bumex drip today. Cardiac markers were negative, BNP normal, exam again is consistent with fluid overload as opposed to acute congestive heart failure Chronic kidney disease stage III-will monitor daily Iron deficiency anemia as well as anemia of chronic kidney disease-this is about her baseline. Will continue to follow C2 fracture-needs to continue to wear brace Hypothyroidism-continue supplementation. Will monitor as an outpatient as well. Lumbar radiculopathy-continue with her home pain medication may need IV medication at hospital Generalized anxiety disorder-continue current medications GERD-continue with home medications Admission status: Patient with significant fluid overload 20 pounds. Based on her history of previous treatments this will take at least 2 to 3 days to improve the edema without affecting her kidney function, Bumex drip today, likely repeat tomorrow, medically necessary treatment will span 2 midnights. Maintain inpatient status
[2023-10-11 13:24] LABS: Basophils Percent Auto 0.1 % (0.2-2.0); Eosinophils Absolute Auto 0.1 10^3/uL (0.0-0.7); Eosinophils Percent Auto 1.2 % (0.9-7.0); Hematocrit 28.8 % (36.0-48.0); Hemoglobin 8.8 g/dL (12.0-16.0); Immature Granulocytes Abs Auto 0.03 10^3/uL (0.00-0.03); Immature Granulocytes Pct Auto 0.4 % (0.0-0.5); Lymphocytes Percent Auto 13.1 % (20.5-60.0); Mean Corpuscular HGB Conc 30.6 g/dL (29.9-35.2); Mean Corpuscular Hemoglobin 30.8 pg (26.7-34.0); Mean Corpuscular Volume 100.7 fL (81.0-99.0); Mean Platelet Volume 8.5 fL (9.5-13.5); Monocytes Absolute Auto 0.5 10^3/uL (0.3-0.8); Monocytes Percent Auto 6.8 % (1.7-12.0); Neutrophils Absolute Auto 5.7 10^3/uL (1.4-6.5); Neutrophils Percent Auto 78.4 % (43.0-75.0); Platelet Count 270 10^3/uL (150-450); Red Blood Count 2.86 10^6/uL (4.20-5.40); Red Cell Distribution Width 14.4 % (11.0-15.0); White Blood Count 7.2 10^3/uL (4.0-11.0)
[2023-10-11 13:50] LABS: Alanine Aminotransferase 36 U/L (14-59); Albumin Globulin Ratio 0.8; Albumin Level 2.9 g/dL (3.4-5.0); Alkaline Phosphatase 309 U/L (46-116); Anion Gap 18.3; Aspartate Amino Transferase 28 U/L (15-37); BUN Creatinine Ratio 35.6; Bilirubin Total 0.3 mg/dL (0.2-1.0); Calcium 8.5 mg/dL (8.5-10.1); Carbon Dioxide 19.7 mmol/L (21.0-32.0); Chloride 102 mmol/L (98-107); Estimated GFR (African America 33 (>=60); Estimated GFR (Non-African Ame 27 (>=60); Free T3 2.91 pg/mL (2.18-3.98); Globulin 3.6 g/dL; Glucose 90 mg/dL (74-106); Magnesium 2.3 mg/dL (1.8-2.4); Sodium 136 mmol/L (136-145); Thyroid Stimulating Hormone 1.212 uIU/mL (0.358-3.740); Total Protein 6.5 g/dL (6.4-8.2); Troponin I High Sensitivity 7.2 pg/mL (4.0-51.3)
[2023-10-11] MEDS: BUMETANIDE 10 MG in 0.9 % SODIUM CHLORIDE 160 ML 20 MG IV (14:12)
--- NOTE | 2023-10-11 14:14 | SWNOTE1 ---
Pt was walking in the hallway with physical therapy. SW to stop in after done with therapy.
--- NOTE | 2023-10-11 14:59 | SWNOTE1 ---
SW met with pt to discuss dc needs. Pt had some falls at home back in August. She was in our ED at beginning of September and was transferred due to neck fracture/break and she is wearing a neck brace. Pt did not have to have surgery. Pt does think she was supposed to be set up with [facility], but not sure what happened, SW to check in to this. Pt uses her rollator at home. 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 Pt did lost her mother and her son last year. SW did check on her mental health. Pt voices she does go to counseling once a week and she attends a grief support group as well. Pt has good days and bad days. Tries to stay busy doing things. Voices hardest time is when she goes to fall asleep and her mind keeps going. Pt does not have any needs at discharge at this time. PILAR to find out about home health. PILAR sent email to intake at [facility].
[2023-10-11] MEDS: SEVELAMER CARBONATE 800 MG TABLET PO (15:19)
[2023-10-11] MEDS: OXYCODONE HCL/ACETAMINOPHEN 5MG/325MG 2 TAB PO (15:19)
--- NOTE | 2023-10-11 15:24 | SWNOTE1 ---
SW received email back from [facility]. They did receive referral back in June but never opened a case. SW let pt know. Pt does feel she will need home health. SW did let her know she did well with therapy and home health may only come 1x or 2x and be done. Pt does still want it. Referral sent to [facility]. Referral included face sheet,H&P, and PT notes.
[2023-10-11] MEDS: CALCIUM ACETATE 667 MG CAPSULE PO (15:32)
[2023-10-11] MEDS: HYDROMORPHONE HCL 0.5 MG/0.5 ML SYRINGE IV ×2 (18:08→22:58)
[2023-10-11] MEDS: DOXEPIN HCL 10 MG CAPSULE PO (20:10)
[2023-10-11] MEDS: SACUBITRIL/VALSARTAN 24 MG-26 MG TABLET 2 TAB PO (20:10)
[2023-10-11] MEDS: ENSURE HP 237 ML LIQUID PO (20:10)
[2023-10-11] MEDS: PREGABALIN 50 MG CAPSULE PO (20:10)
[2023-10-11] MEDS: PROSTAT 15 GM PROTEIN/100 CAL 30 ML LIQUID PACKET PO (20:10)
[2023-10-11] MEDS: PRAMIPEXOLE 1 MG TABLET PO (20:10)
[2023-10-11] MEDS: APIXABAN 5 MG TABLET 2.5 MG PO (20:10)
[2023-10-11] MEDS: FENTANYL 50 MCG/HR PATCH.TD72 100 MCG TD (20:10)
[2023-10-11] MEDS: BUDESONIDE 0.5 MG/2 ML AMPULE NEB IH (21:04)
[2023-10-11] MEDS: ALBUTEROL SULFATE 2.5 MG/3 ML VIAL NEB IH (21:04)
[2023-10-11] MEDS: AMITRIPTYLINE HCL 50 MG TABLET 300 MG PO (21:31)
[2023-10-11] MEDS: PRIMIDONE 50 MG TABLET 150 MG PO (21:32)
[2023-10-11] MEDS: TIZANIDINE HCL 4 MG TABLET PO (21:32)
[2023-10-12] VITALS (21 sets, daily range): BP systolic 103–135; BP diastolic 65–82; PULSE 68–108; TEMP 36.1–36.9; O2SAT 92–99
[2023-10-12] MEDS: OXYCODONE HCL/ACETAMINOPHEN 5MG/325MG 2 TAB PO ×3 (02:48→17:12)
[2023-10-12] MEDS: HYDROMORPHONE HCL 0.5 MG/0.5 ML SYRINGE IV ×2 (04:38→19:46)
[2023-10-12] MEDS: ONDANSETRON PF 4 MG/2 ML VIAL IV ×2 (04:42→19:46)
[2023-10-12 05:49] LABS: Basophils Percent Auto 0.3 % (0.2-2.0); Eosinophils Absolute Auto 0.1 10^3/uL (0.0-0.7); Hematocrit 28.9 % (36.0-48.0); Hemoglobin 8.8 g/dL (12.0-16.0); Immature Granulocytes Abs Auto 0.05 10^3/uL (0.00-0.03); Immature Granulocytes Pct Auto 0.7 % (0.0-0.5); Lymphocytes Absolute Auto 1.5 10^3/uL (1.2-3.8); Mean Corpuscular HGB Conc 30.4 g/dL (29.9-35.2); Mean Corpuscular Hemoglobin 30.4 pg (26.7-34.0); Mean Platelet Volume 9.2 fL (9.5-13.5); Monocytes Absolute Auto 0.6 10^3/uL (0.3-0.8); Monocytes Percent Auto 8.4 % (1.7-12.0); Neutrophils Absolute Auto 4.8 10^3/uL (1.4-6.5); Neutrophils Percent Auto 67.6 % (43.0-75.0); Platelet Count 299 10^3/uL (150-450); Red Blood Count 2.89 10^6/uL (4.20-5.40); Red Cell Distribution Width 14.5 % (11.0-15.0)
[2023-10-12] MEDS: LEVOTHYROXINE SODIUM 100 MCG TABLET PO (05:49)
[2023-10-12] MEDS: OMEPRAZOLE 40 MG CAPSULE.DR PO (05:49)
[2023-10-12 06:04] LABS: Alanine Aminotransferase 21 U/L (14-59); Albumin Globulin Ratio 0.9; Alkaline Phosphatase 286 U/L (46-116); Aspartate Amino Transferase 21 U/L (15-37); BUN Creatinine Ratio 36.8; Bilirubin Total 0.3 mg/dL (0.2-1.0); Calcium 8.3 mg/dL (8.5-10.1); Carbon Dioxide 24.8 mmol/L (21.0-32.0); Chloride 103 mmol/L (98-107); Estimated GFR (African America 37 (>=60); Estimated GFR (Non-African Ame 30 (>=60); Globulin 3.3 g/dL; Glucose 96 mg/dL (74-106); Potassium 3.8 mmol/L (3.5-5.1); Sodium 137 mmol/L (136-145); Total Protein 6.3 g/dL (6.4-8.2)
--- NOTE | 2023-10-12 07:56 | P.PN_ITS ---
Progress Note: Subjective Subjective Interval history: Patient with headache persisting, this is still likely secondary to her fall. Still with significant swelling in her legs and difficulty ambulating due to the edema. Exam Constitutional Vital Signs, click to edit/add: Last Vital Signs Temp 97.4 F L 10/12/23 04:00 Pulse 69 10/12/23 05:58 Resp 18 10/12/23 04:00 BP 131/82 10/12/23 04:00 Pulse Ox 96 10/12/23 05:58 O2 Del Method Room Air 10/12/23 04:00 Documenting provider has reviewed patient's vital signs: yes Common normals: no apparent distress (No respiratory distress she is having some painful distress due to her neck) HENMT Common normals: normocephalic and head/scalp atraumatic (Neck brace in place) Chest Common normals: inspection of chest normal Respiratory Common normals: normal respiratory effort, no retractions, no use of accessory muscles and clear to auscultation bilaterally Cardio Common normals: regular rate and no murmurs; irregular rhythm GI Common normals: Normal to inspection, nondistended, normoactive bowel sounds present Extremity Common normals: abnormal to inspection (3+ edema bilateral lower extremities pitting - persisting) Progress Note: Objective Labs Labs: Short CBC 10/11/23 10/12/23 Range/Units 13:15 04:46 WBC 7.2 7.0 (4.0-11.0) 10^3/uL Hgb 8.8 L 8.8 L (12.0-16.0) g/dL Hct 28.8 L 28.9 L (36.0-48.0) % Plt Count 270 299 (150-450) 10^3/uL BMP 10/11/23 10/12/23 13:15 04:46 Sodium 136 137 Potassium 4.0 3.8 Chloride 102 103 Carbon Dioxide 19.7 L 24.8 BUN 67.0 H 63.0 H Creatinine 1.88 H 1.71 H Glucose 90 96 Calcium 8.5 8.3 L Liver Function 10/11/23 10/12/23 Range/Units 13:15 04:46 Total Bilirubin 0.3 0.3 (0.2-1.0) mg/dL AST 28 21 (15-37) U/L ALT 36 21 (14-59) U/L Alkaline Phosphatase 309 H 286 H (46-116) U/L Albumin 2.9 L 3.0 L (3.4-5.0) g/dL Progress Note: A&P Assessment and Plan (1) Chronic kidney disease: (2) Fluid overload: Plan Admission diagnoses: Uncontrolled hypertension, fluid overload secondary to recent adjustment in medications. The Fisoc obviously was working for her. On admission she is 3 pounds up from her baseline. Overnight had good diuresis with 4.6 L out. Still with significant fluid overload. Repeat Bumex drip again today. Continue with Aldactone. Chronic kidney disease stage III-will monitor daily-improved despite use of Bumex drip. Iron deficiency anemia as well as anemia of chronic kidney disease-this is about her baseline. Will continue to follow C2 fracture-needs to continue to wear brace Hypothyroidism-continue supplementation. Looks like her TE for supplementation has been stopped. We restarted that today. That may contribute to her fluid overload as well. Lumbar radiculopathy-continue with her home pain medication may need IV medication at hospital Generalized anxiety disorder-continue current medications GERD-continue with home medications Admission status: On admission patient with significant fluid overload of 20 pounds. Based on her history of previous treatments this will take at least 2 to 3 days to improve the edema without affecting her kidney function, Bumex drips, likely repeat again tomorrow, medically necessary treatment will span 2 midnights. Maintain inpatient status
[2023-10-12] MEDS: ENSURE HP 237 ML LIQUID PO ×2 (09:00→20:45)
[2023-10-12] MEDS: SEVELAMER CARBONATE 800 MG TABLET PO ×3 (09:00→16:06)
[2023-10-12] MEDS: PROSTAT 15 GM PROTEIN/100 CAL 30 ML LIQUID PACKET PO ×2 (09:01→20:45)
[2023-10-12] MEDS: ALPRAZOLAM 0.5 MG TABLET PO (09:01)
[2023-10-12] MEDS: SACUBITRIL/VALSARTAN 24 MG-26 MG TABLET 2 TAB PO ×2 (09:01→20:45)
[2023-10-12] MEDS: PREGABALIN 50 MG CAPSULE PO ×2 (09:01→20:45)
[2023-10-12] MEDS: DESVENLAFAXINE SUCCINATE 50 MG TAB.ER.24H PO (09:02)
[2023-10-12] MEDS: APIXABAN 5 MG TABLET 2.5 MG PO ×2 (09:02→20:45)
[2023-10-12] MEDS: ESCITALOPRAM 10 MG TABLET 20 MG PO (09:02)
[2023-10-12] MEDS: ARIPIPRAZOLE 2 MG TABLET PO (09:02)
[2023-10-12] MEDS: ORPHENADRINE 60 MG/ 2 ML VIAL IV ×2 (09:03→20:45)
[2023-10-12] MEDS: CALCIUM ACETATE 667 MG CAPSULE PO ×2 (09:03→16:06)
[2023-10-12] MEDS: DOXEPIN HCL 10 MG CAPSULE PO ×2 (09:03→20:45)
[2023-10-12] MEDS: BUMETANIDE 10 MG in 0.9 % SODIUM CHLORIDE 160 ML 20 MG IV (09:04)
--- NOTE | 2023-10-12 09:50 | PT.DAILY ---
Physical Therapy Daily Note PT Daily Note/Assess Start: 10/12/23 09:46 Freq: Status: Active Protocol: Document 10/12/23 09:46 RICARDOTHERESASUKI (Rec: 10/12/23 09:50 AYALA [id number]) Physical Therapy Daily Note/Assessment Time In/Time Out Time In 09:25 Time Out 09:40 Pain In Pain N/A Pain Out Pain N/A Subjective Subjective Pt sitting in BS chair upon arrival. Agrees to PT. Currently has a migraine. Had nursing unhook her from IV prior to stair training. Therapeutic Activity Time Therapeutic Activity Minutes (minutes) 12 Therapeutic Activity Units 1 Therapeutic Activity Treatment Chair Transfer Ability Modified Independent Therapeutic Activity Comments Sit>stand to rollator with increased time to complete. Pt amb 120' with rollator SUP with slow antelmo. Pt performs stair training up/down 4 steps 3x with bilat UE support and step to pattern (which is how she negotiates steps at home). Pt amb 120' back with rollator back to room. Sits in BS chair upon completion for OT eval. Left under OT care. Total Physical Therapy Time Total Therapy Minutes 12 Total Physical Therapy Units 1 Summary Daily Note Summary Safe with stair negotiation today using bilat UE support. Fair tolerance to session with min fatigue.
[2023-10-12] MEDS: BUDESONIDE 0.5 MG/2 ML AMPULE NEB IH ×2 (09:53→20:43)
[2023-10-12] MEDS: ALBUTEROL SULFATE 2.5 MG/3 ML VIAL NEB IH ×3 (09:53→20:43)
--- NOTE | 2023-10-12 11:32 | CT_ITS ---
The [address] [address] Patient Name: JOSE CLEMENTS MRN: [id number] date: 1960 Sex: F Assigned Patient Location: [place] Current Patient Location: [place] Accession/Order Number: [id number] Exam Date: 10/12/2023 11:45 Report Date: 10/12/2023 12:08 At the request of: ANGLE SANTANA Procedure: CT head/brain wo con EXAMINATION: CT head/brain wo con HISTORY: brain bleed concern by pt ; headache, nausea, light and sound sensitivity; C2 dens fracture COMPARISON: CT head 09/29/2023 TECHNIQUE: Axial CT images were obtained without IV contrast. Dose reduction techniques were achieved by using automated exposure control and/or adjustment of mA and/or kV according to patient size and/or use of iterative reconstruction technique. FINDINGS: BRAIN: No edema, hemorrhage, mass, acute infarction, or inappropriate atrophy. CSF SPACES: No hydrocephalus, subarachnoid hemorrhage, or mass. Appropriate for age. SKULL: No fracture, mass, or other significant visible lesion. SINUSES: No significant mucosal thickening or fluid on the limited views. ORBITS: No appreciable abnormality on the limited views. OTHER: Negative CT/CT head/brain wo con IMPRESSION: 1. No acute or suspicious findings to account for patient's symptoms. 2. Minimal atrophy. 3. No fracture of the calvarium or scalp hematoma. Electronically authenticated by: BUNNY ZEPEDA Date: 10/12/2023 12:08
--- NOTE | 2023-10-12 11:58 | SWNOTE1 ---
[facility] is not able to accept due to being at there capacity for this insurance. SW to updated pt and see if she would like another company.
--- NOTE | 2023-10-12 12:08 | SWNOTE1 ---
SW spoke with pt and she is alright with any home health [facility]. She has had [facility] in past. Referral sent to [facility]. Referral included face sheet, ED note, H&P, provider notes, case management report, and PT notes.
[2023-10-12] MEDS: ACETAMINOPHEN 500 MG TABLET 1000 MG PO (13:19)
[2023-10-12 13:30] LABS: Bilirubin Urine NEGATIVE (NEGATIVE); Blood Urine NEGATIVE (NEGATIVE); Clarity Urine CLEAR (CLEAR); Color Urine LT. YELLOW (YELLOW); Glucose Urine UA NEGATIVE (NEGATIVE); Ketones Urine NEGATIVE (NEGATIVE); Leukocyte Esterase Urine NEGATIVE (NEGATIVE); Nitrite Urine NEGATIVE (NEGATIVE); Protein Urine NEGATIVE (NEG/TRACE); Specific Gravity Urine <=1.005 (1.005-1.025); Urobilinogen Urine 0.2 EU/dL (0.2-1.0)
[2023-10-12 13:34] LABS: Bacteria Urine NONE SEEN #/HPF (NONE SEEN); Cast Seen? NONE SEEN #/LPF (NONE SEEN); Crystals Seen? None Seen #/HPF (None Seen); Mucus Urine NONE SEEN (NONE SEEN); RBC Urine NONE SEEN #/HPF (0-2); Squamous Epithelial Cell Urine NONE SEEN #/LPF (NONE/RARE); WBC Urine NONE SEEN #/HPF (NONE SEEN)
--- NOTE | 2023-10-12 13:58 | SWNOTE1 ---
[facility] is able to accept. They will start care Monday. SW let nursing and pt know.
[2023-10-12] MEDS: PRAMIPEXOLE 1 MG TABLET PO (20:45)
[2023-10-12] MEDS: PRIMIDONE 50 MG TABLET 150 MG PO (21:03)
[2023-10-12] MEDS: AMITRIPTYLINE HCL 50 MG TABLET 300 MG PO (21:03)
[2023-10-13] VITALS: PULSE 87
[2023-10-13 02:00] VITALS: PULSE 88
[2023-10-13] MEDS: OXYCODONE HCL/ACETAMINOPHEN 5MG/325MG 2 TAB PO ×2 (02:46→10:11)
[2023-10-13 04:00] VITALS: BP 115/75; PULSE 91; TEMP 36.6; O2SAT 93
[2023-10-13] MEDS: ONDANSETRON PF 4 MG/2 ML VIAL IV (04:11)
[2023-10-13 04:45] LABS: Basophils Percent Auto 0.3 % (0.2-2.0); Eosinophils Absolute Auto 0.1 10^3/uL (0.0-0.7); Eosinophils Percent Auto 1.2 % (0.9-7.0); Hematocrit 28.1 % (36.0-48.0); Hemoglobin 8.5 g/dL (12.0-16.0); Immature Granulocytes Abs Auto 0.05 10^3/uL (0.00-0.03); Immature Granulocytes Pct Auto 0.6 % (0.0-0.5); Lymphocytes Absolute Auto 1.5 10^3/uL (1.2-3.8); Lymphocytes Percent Auto 18.6 % (20.5-60.0); Mean Corpuscular HGB Conc 30.2 g/dL (29.9-35.2); Mean Corpuscular Hemoglobin 30.6 pg (26.7-34.0); Mean Corpuscular Volume 101.1 fL (81.0-99.0); Mean Platelet Volume 8.9 fL (9.5-13.5); Monocytes Absolute Auto 0.6 10^3/uL (0.3-0.8); Neutrophils Absolute Auto 5.7 10^3/uL (1.4-6.5); Neutrophils Percent Auto 72.3 % (43.0-75.0); Platelet Count 279 10^3/uL (150-450); Red Blood Count 2.78 10^6/uL (4.20-5.40); Red Cell Distribution Width 14.7 % (11.0-15.0); White Blood Count 7.8 10^3/uL (4.0-11.0)
[2023-10-13 05:07] LABS: Alanine Aminotransferase 20 U/L (14-59); Albumin Globulin Ratio 0.9; Albumin Level 2.9 g/dL (3.4-5.0); Alkaline Phosphatase 262 U/L (46-116); Anion Gap 10.8; Aspartate Amino Transferase 19 U/L (15-37); BUN Creatinine Ratio 35.9; Bilirubin Total 0.2 mg/dL (0.2-1.0); Calcium 8.4 mg/dL (8.5-10.1); Carbon Dioxide 27.8 mmol/L (21.0-32.0); Chloride 101 mmol/L (98-107); Estimated GFR (African America 37 (>=60); Estimated GFR (Non-African Ame 31 (>=60); Globulin 3.1 g/dL; Glucose 112 mg/dL (74-106); Potassium 4.6 mmol/L (3.5-5.1); Sodium 135 mmol/L (136-145)
[2023-10-13] MEDS: HYDROMORPHONE HCL 0.5 MG/0.5 ML SYRINGE IV (05:15)
[2023-10-13] MEDS: LEVOTHYROXINE SODIUM 100 MCG TABLET PO (05:49)
[2023-10-13] MEDS: OMEPRAZOLE 40 MG CAPSULE.DR PO (05:49)
[2023-10-13 06:00] VITALS: PULSE 99
[2023-10-13 08:00] VITALS: BP 110/75; PULSE 89; TEMP 36.6; O2SAT 93
--- NOTE | 2023-10-13 08:01 | P.DS_ITS ---
DS: Providers Provider Date of admission: 10/11/23 12:06 Primary care physician: Yuri Godinez MD Consults: 10/11/23 12:55 Consult to Pharmacy Routine Consulting Provider: Reason for consultation: Please Rice me when Med Rec is Updated Has provider been notified: No Occupational Therapy Eval and Treat Routine Reason for consultation: Only if needed for Rehab Has provider been notified: No Physical Therapy Eval and Treat Routine Reason for consultation: Eval and Treat Has provider been notified: No DS: Diagnosis Discharge Diagnosis (1) Chronic kidney disease: (2) Fluid overload: Plan Admission diagnoses: Uncontrolled hypertension, fluid overload secondary to recent adjustment in medications. [employer] was working for her. On admission she is 3 pounds up from her baseline. Overnight had good diuresis with 4.6 L out. Still with significant fluid overload. Repeat Bumex drip again today. Continue with Aldactone. Chronic kidney disease stage III-will monitor daily-improved despite use of Bumex drip. Iron deficiency anemia as well as anemia of chronic kidney disease-this is about her baseline. Will continue to follow C2 fracture-needs to continue to wear brace Hypothyroidism-continue supplementation. Looks like her TE for supplementation has been stopped. We restarted that today. That may contribute to her fluid overload as well. Lumbar radiculopathy-continue with her home pain medication may need IV medication at hospital Generalized anxiety disorder-continue current medications GERD-continue with home medications Admission status: On admission patient with significant fluid overload of 20 pounds. Based on her history of previous treatments this will take at least 2 to 3 days to improve the edema without affecting her kidney function, Bumex drips, likely repeat again tomorrow, medically necessary treatment will span 2 midnights. Maintain inpatient status ? DS: Summary Hospital Course Hospital Course: Patient was seen and evaluated in the office with increasing swelling in her lower extremities. She has a history of fluid overload with lymphedema. She had a 20 pound weight gain which would be consistent with the amount of fluid overload noted on physical exam. She was admitted to inpatient status with medically necessary treatment spanning 2 midnights, with Bumex drip which she tolerated well. Her creatinine actually improved throughout the hospitalization despite a diuresis of almost 8 L. Her legs are not nearly as tight. No evidence of cellulitis in her lower extremities. She is ambulating better with the weight loss and diuresis. She is not back to baseline currently. She does feel improved enough to go home. Continue with home medications. She is to see me in the office in 3 days, try to set up home lymphedema therapy and have her follow-up with pain clinic. Status at Discharge Functional status at discharge: uses cane/walker Overall status at discharge: patient is not back to baseline Time Spent with Patient Time attestation: Total time spent providing and/or coordinating discharge services: Time spent: greater than 30 minutes Exam Constitutional Vital Signs, click to edit/add: Last Vital Signs Temp 97.9 F 10/13/23 04:00 Pulse 99 H 10/13/23 06:00 Resp 18 10/13/23 07:31 BP 115/75 10/13/23 04:00 Pulse Ox 93 L 10/13/23 04:00 O2 Del Method Room Air 10/13/23 04:00 Documenting provider has reviewed patient's vital signs: yes Common normals: no apparent distress (No respiratory distress she is having some painful distress due to her neck) [facility] Common normals: normocephalic and head/scalp atraumatic (Neck brace in place) Chest Common normals: inspection of chest normal Respiratory Common normals: normal respiratory effort, no retractions, no use of accessory muscles and clear to auscultation bilaterally Cardio Common normals: regular rate and no murmurs; irregular rhythm GI Common normals: Normal to inspection, nondistended, normoactive bowel sounds present Extremity Common normals: abnormal to inspection (2+ edema bilateral lower extremities pitting -improved) DS: Data Data Completed and Pending Labs on day of discharge: Labs from last 24 hours 10/13/23 10/12/23 04:33 12:50 WBC 7.8 RBC 2.78 L Hgb 8.5 L Hct 28.1 L MCV 101.1 H MCH 30.6 MCHC 30.2 RDW 14.7 Plt Count 279 MPV 8.9 L Neut % (Auto) 72.3 Lymph % (Auto) 18.6 L [place] % (Auto) 7.0 Eos % (Auto) 1.2 Baso % (Auto) 0.3 Neut # (Auto) 5.7 Lymph # (Auto) 1.5 [place] # (Auto) 0.6 Eos # (Auto) 0.1 Baso # (Auto) 0.0 Abs Immat Gran (auto) 0.05 H Imm/Tot Granulo (auto) 0.6 H Sodium 135 L Potassium 4.6 Chloride 101 Carbon Dioxide 27.8 Anion Gap 10.8 BUN 61.0 H Creatinine 1.70 H Est GFR ( Amer) 37 L Est GFR (Non-Af Amer) 31 L BUN/Creatinine Ratio 35.9 Glucose 112 H Calcium 8.4 L Total Bilirubin 0.2 AST 19 ALT 20 Alkaline Phosphatase 262 H Total Protein 6.0 L Albumin 2.9 L Globulin 3.1 Albumin/Globulin Ratio 0.9 Urine Color Lt. yellow Urine Clarity Clear Urine pH 6.0 Ur Specific [place] <=1.005 A Urine Protein Negative Urine Glucose (UA) Negative Urine Ketones Negative Urine Occult Blood Negative Urine Nitrite Negative Urine Bilirubin Negative Urine Urobilinogen 0.2 Ur Leukocyte Esterase Negative Urine RBC None seen Urine WBC None seen Ur Squamous Epith Cells None seen Urine Crystals None seen Urine Bacteria None seen Urine Casts None seen Urine Mucus None seen Discharge Plan Discharge Disposition: Home Health Service Discharge Medications: New Entresto 49-51 mg tablet 1 tab PO BID Qty: 60 11RF Continued aripiprazole [Abilify] 2 mg tablet 2 mg PO DAILY bumetanide 1 mg tablet 1 mg PO TID PRN (Reason: SWELLING) Hold Instructions: Resume on 02/16/23. until cleared by PCP pramipexole [Mirapex] 1 mg tablet 1 mg PO .evening spironolactone [Aldactone] 50 mg tablet 50 mg PO DAILY PRN (Reason: swelling) butorphanol 10 mg/mL spray,non-aerosol 1 spray INTRANASAL .QD PRN (Reason: pain) fluticasone furoate-vilanterol [Breo Ellipta] 100-25 mcg/dose blister with device 1 inh INHALATION Q24H sevelamer carbonate 800 mg tablet 800 mg PO TID Rx Instructions: must administer with a meal/food Eliquis 2.5 mg tablet 2.5 mg PO BID pregabalin [Lyrica] 50 mg capsule 50 mg PO BID Qty: 60 2RF desvenlafaxine succinate 50 mg tablet extended release 24 hr 50 mg PO DAILY diclofenac sodium 1 % gel 2 g TOPICAL .QD PRN (Reason: PAIN/INFLAMMATION) doxepin 10 mg capsule 10 mg PO BID escitalopram oxalate 20 mg tablet 20 mg PO DAILY pantoprazole 40 mg tablet,delayed release (DR/EC) 40 mg PO DAILY azelastine 0.05 % drops 1 drp OPHTHALMIC (EYE) DAILY fentanyl 100 mcg/hr patch 72 hour 1 patch transdermal Q72H alprazolam 0.5 mg tablet 0.5 mg PO BID PRN (Reason: anxiety) amitriptyline 150 mg tablet 300 mg PO BEDTIME calcium acetate(phosphat bind) 667 mg capsule 667 mg PO BID levothyroxine 100 mcg tablet 100 mcg PO DAILY Linzess 290 mcg capsule 290 mcg PO DAILY Hold Instructions: Resume on 02/16/23. until diarrhea resolves primidone 50 mg tablet 150 mg PO BEDTIME tizanidine [Zanaflex] 4 mg tablet 4 mg PO Q6H PRN (Reason: muscle spasticity) oxycodone-acetaminophen 5-325 mg tablet 2 tab PO Q6H PRN (Reason: pain) Print Language: Swedish Patient Instructions: Sacubitril/Valsartan (By mouth) (Entresto), Chronic Kidney Disease (ED) [employer]/Division Sales Manager Instructions: [facility], phone number is [phone]. Plan is for start of care on MondayOctober 15. Forms: Portal Instructions Follow Up Appointments: Dr Godinez MondayOctober 15 at 10:15 am. [phone]
--- NOTE | 2023-10-13 08:16 | CM.NOTE ---
2nd Important message From Medicare discussed with pt, denies questions or concerns.
--- NOTE | 2023-10-13 08:38 | SWNOTE1 ---
Important Message from [employer] reviewed and discussed with patient. Pt. verbalized understanding and signed the form. Original given to patient and copy placed in patient?s chart. This was completed on 10/11/23, see chart.
--- NOTE | 2023-10-13 09:08 | SWNOTE1 ---
Referral form, dc med rec, and dc summary sent to [facility]. They have already been in contact with pt and start of care is MondayOctober 15.
[2023-10-13] MEDS: PREGABALIN 50 MG CAPSULE PO (10:10)
[2023-10-13] MEDS: DOXEPIN HCL 10 MG CAPSULE PO (10:10)
[2023-10-13] MEDS: DESVENLAFAXINE SUCCINATE 50 MG TAB.ER.24H PO (10:10)
[2023-10-13] MEDS: SACUBITRIL/VALSARTAN 24 MG-26 MG TABLET 2 TAB PO (10:10)
[2023-10-13] MEDS: ESCITALOPRAM 10 MG TABLET 20 MG PO (10:11)
[2023-10-13] MEDS: APIXABAN 5 MG TABLET 2.5 MG PO (10:11)
[2023-10-13] MEDS: ARIPIPRAZOLE 2 MG TABLET PO (10:11)
--- NOTE | 2023-10-13 10:22 | PC.NURSE ---
pt states she has weekly lab draws, no heparin needed at this time
--- NOTE | 2023-10-16 16:00 | CM.DCFOLLOWU ---
Person spoke with: Mabel How are you feeling? Still have a lot of fluid in my legs How is your pain? Manageable Did you understand your discharge instructions? Yes Do you have any questions about your discharge instructions? No Were you given any prescriptions at discharge? Yes Were you able to get your prescriptions filled? Yes Do you understand how to take your medications as ordered? Yes Do you have any questions about your follow up appointment and do you plan to keep your follow up appointment? I had my appt today and he adjusted my medications Is there anything else that you would like to discuss? No Questions/Comments/Concerns/Other:
== END 2023-10-13 10:30 | disposition home health service (06) | DRG 641 ==
PROVIDERS: Admitting Provider Family Medicine; PCP Family Medicine; Visit Provider Family Medicine
DX: E87.70 Fluid overload, unspecified (principal); I50.32 Chronic diastolic (congestive) heart failure; I13.0 Hypertensive heart and chronic kidney disease with heart failure and stage 1 through stage 4 chronic kidney disease, or unspecified chronic kidney disease; I89.0 Lymphedema, not elsewhere classified; N18.30 Chronic kidney disease, stage 3 unspecified; S12.100D Unspecified displaced fracture of second cervical vertebra, subsequent encounter for fracture with routine healing; W19.XXXD Unspecified fall, subsequent encounter; I87.2 Venous insufficiency (chronic) (peripheral); F32.A Depression, unspecified; Z66 Do not resuscitate; D50.9 Iron deficiency anemia, unspecified; D63.1 Anemia in chronic kidney disease; E03.9 Hypothyroidism, unspecified; F41.1 Generalized anxiety disorder; M54.16 Radiculopathy, lumbar region; K21.9 Gastro-esophageal reflux disease without esophagitis; M19.90 Unspecified osteoarthritis, unspecified site; I25.2 Old myocardial infarction; Z86.73 Personal history of transient ischemic attack (TIA), and cerebral infarction without residual deficits; J44.89 Other specified chronic obstructive pulmonary disease; Z96.651 Presence of right artificial knee joint; Z82.49 Family history of ischemic heart disease and other diseases of the circulatory system; Z79.890 Hormone replacement therapy; Z79.891 Long term (current) use of opiate analgesic; Z79.01 Long term (current) use of anticoagulants; Z79.899 Other long term (current) drug therapy; Z88.1 Allergy status to other antibiotic agents; Z88.2 Allergy status to sulfonamides; Z88.8 Allergy status to other drugs, medicaments and biological substances
CPT/HCPCS: 36415; 36591; 36592; 70450; 80053; 81001; 83735; 83880; 84436; 84443; 84481; 84484; 85025; 87086; 94640; 94667; 94668; 94761; 96365; 96366; 96375; 96376; 97161; 97165; 97530; J1170

== ENCOUNTER 2023-10-20 12:36 | Outpatient (RCR) | payer MEDICARE, MEDICAID, SELFPAY ==
[2023-09-28] MEDS: HEPARIN SODIUM (PORCINE) PF LOCK FLUSH 500 UNIT/5 ML SYRINGE IV (11:10)
--- NOTE | 2023-09-28 11:20 | PC.NURSE ---
1100: Pt. retrieved from car via w/c and taken to [facility] per. ARTHUR Hoffman. Pt. with large bruise over left eye and swollen area in front/top of scalp. Relays falling at home. Bilat. lower ext. notably edematous. Pt. relays coming from Dr. Frazier office for evaluation. Assisted to chair. Using sterile technique, right ant. chest port accessed using 19 gauge Stovall needle. Flushes easily and able to aspirate blood easily. Blood obtained for ordered labs. Port flushed with saline and Heparin. Port de-accessed. No bleeding to site. Covered with cotton ball and secured with tape. Pt tolerated all with min. c/o. 1110: Pt. taken back to car via w/c and d/c'd to home with .
[2023-09-28 11:39] LABS: Basophils Percent Auto 0.3 % (0.2-2.0); Eosinophils Absolute Auto 0.1 10^3/uL (0.0-0.7); Eosinophils Percent Auto 1.5 % (0.9-7.0); Hematocrit 30.1 % (36.0-48.0); Immature Granulocytes Abs Auto 0.06 10^3/uL (0.00-0.03); Immature Granulocytes Pct Auto 0.6 % (0.0-0.5); Lymphocytes Absolute Auto 1.2 10^3/uL (1.2-3.8); Lymphocytes Percent Auto 12.3 % (20.5-60.0); Mean Corpuscular HGB Conc 29.9 g/dL (29.9-35.2); Mean Corpuscular Hemoglobin 30.2 pg (26.7-34.0); Monocytes Absolute Auto 0.5 10^3/uL (0.3-0.8); Monocytes Percent Auto 5.7 % (1.7-12.0); Neutrophils Absolute Auto 7.4 10^3/uL (1.4-6.5); Neutrophils Percent Auto 79.6 % (43.0-75.0); Platelet Count 338 10^3/uL (150-450); Red Blood Count 2.98 10^6/uL (4.20-5.40); Red Cell Distribution Width 13.4 % (11.0-15.0); White Blood Count 9.3 10^3/uL (4.0-11.0)
[2023-09-28 12:05] LABS: Alanine Aminotransferase 23 U/L (14-59); Albumin Globulin Ratio 0.9; Albumin Level 3.2 g/dL (3.4-5.0); Alkaline Phosphatase 344 U/L (46-116); Aspartate Amino Transferase 25 U/L (15-37); BUN Creatinine Ratio 34.2; Bilirubin Total 0.3 mg/dL (0.2-1.0); Calcium 8.8 mg/dL (8.5-10.1); Carbon Dioxide 26.3 mmol/L (21.0-32.0); Chloride 101 mmol/L (98-107); Estimated GFR (African America 41 (>=60); Estimated GFR (Non-African Ame 34 (>=60); Globulin 3.7 g/dL; Glucose 93 mg/dL (74-106); Potassium 4.3 mmol/L (3.5-5.1); Sodium 136 mmol/L (136-145); Total Protein 6.9 g/dL (6.4-8.2)
--- NOTE | 2023-10-20 12:38 | PC.NURSE ---
1230 Arrival ambulatory to chair 3. alert oriented. Rt chest port accessed using sterile technique #20 3/ in james needle. see documentation 1245 Released ambulatory with walker
[2023-10-20 13:11] LABS: Alanine Aminotransferase 30 U/L (14-59); Albumin Globulin Ratio 0.8; Albumin Level 3.1 g/dL (3.4-5.0); Alkaline Phosphatase 300 U/L (46-116); Anion Gap 17.5; Aspartate Amino Transferase 27 U/L (15-37); BUN Creatinine Ratio 46.2; Bilirubin Total 0.3 mg/dL (0.2-1.0); Calcium 8.3 mg/dL (8.5-10.1); Chloride 100 mmol/L (98-107); Estimated GFR (African America 33 (>=60); Estimated GFR (Non-African Ame 28 (>=60); Globulin 3.7 g/dL; Glucose 101 mg/dL (74-106); Potassium 4.5 mmol/L (3.5-5.1); Sodium 135 mmol/L (136-145); Total Protein 6.8 g/dL (6.4-8.2)
[2023-10-20 13:15] LABS: Basophils Percent Auto 0.4 % (0.2-2.0); Eosinophils Absolute Auto 0.1 10^3/uL (0.0-0.7); Eosinophils Percent Auto 1.1 % (0.9-7.0); Hematocrit 29.4 % (36.0-48.0); Immature Granulocytes Abs Auto 0.07 10^3/uL (0.00-0.03); Immature Granulocytes Pct Auto 0.8 % (0.0-0.5); Lymphocytes Percent Auto 12.1 % (20.5-60.0); Mean Corpuscular HGB Conc 30.6 g/dL (29.9-35.2); Mean Corpuscular Hemoglobin 30.6 pg (26.7-34.0); Mean Platelet Volume 9.2 fL (9.5-13.5); Monocytes Absolute Auto 0.6 10^3/uL (0.3-0.8); Monocytes Percent Auto 6.8 % (1.7-12.0); Neutrophils Absolute Auto 6.8 10^3/uL (1.4-6.5); Neutrophils Percent Auto 78.8 % (43.0-75.0); Platelet Count 315 10^3/uL (150-450); Red Blood Count 2.94 10^6/uL (4.20-5.40); Red Cell Distribution Width 14.7 % (11.0-15.0); White Blood Count 8.6 10^3/uL (4.0-11.0)
== END 2023-10-24 23:59 | disposition home or self-care (01) ==
LOC: INF 12:36
PROVIDERS: PCP Family Medicine; Visit Provider Family Medicine
DX: M47.817 Spondylosis without myelopathy or radiculopathy, lumbosacral region (principal); Z98.1 Arthrodesis status; M48.07 Spinal stenosis, lumbosacral region; I10 Essential (primary) hypertension; E87.1 Hypo-osmolality and hyponatremia; D64.9 Anemia, unspecified
CPT/HCPCS: 36591; 72131; 80053; 83930; 85025

== ENCOUNTER 2023-10-20 12:51 | Outpatient (OUT) | payer MEDICARE, MEDICAID, SELFPAY ==
--- NOTE | 2023-10-20 12:54 | CT_ITS ---
[address] [address] Patient Name: JOSE CLEMENTS MRN: [id number] date: 1960 Sex: F Assigned Patient Location: CT Current Patient Location: CT Accession/Order Number: [id number] Exam Date: 10/20/2023 13:00 Report Date: 10/20/2023 15:28 At the request of: ANGLE SANTANA Procedure: CT lumbar spine wo con EXAMINATION: CT lumbar spine wo con HISTORY: Lumbar and Sacral Osteoarthritis COMPARISON: No relevant comparison available. TECHNIQUE: Axial, Coronal, and Sagittal CT images were created without I.V. contrast material. Dose reduction techniques were achieved by using automated exposure control and/or adjustment of mA and/or kV according to patient size and/or use of iterative reconstruction technique. FINDINGS: PARASPINAL AREA: Normal with no visible mass. IVC filter BONES: Normal alignment with no acute fracture or spondylolisthesis. Posterior decompression and bilateral transpedicular fusion L3-L5. No mechanical failure. Moderate bone graft material. Degenerative spondylosis and moderate anterior T12-L1 and L1-L21 DISC LEVELS: 12-L1: No significant disc/facet abnormality, spinal stenosis, or foraminal stenosis. L1-L2: No significant disc/facet abnormality, spinal stenosis, or foraminal stenosis. L2-L3: No significant disc/facet abnormality, spinal stenosis, or foraminal stenosis. L3-L4: Posterior fusion. No disc bulge or herniation. No central or foraminal stenosis L4-L5: Interbody spacer with posterior fusion. No herniation. No central or foraminal stenosis L5-S1: Disc space narrowing. No central canal stenosis. Minimal right and moderate left foraminal stenosis CT/CT lumbar spine wo con IMPRESSION: Posterior decompression and transpedicular fusion L3-L5 with no mechanical failure Degenerative changes resulting in minimal right and moderate left L5-S1 foraminal stenosis Electronically authenticated by: CARLOS ALCALA Date: 10/20/2023 15:28
== END 2023-10-20 12:52 | disposition home or self-care (01) ==
LOC: CT 12:51
PROVIDERS: PCP Family Medicine; Visit Provider Family Medicine
DX: M47.817 Spondylosis without myelopathy or radiculopathy, lumbosacral region (principal); Z98.1 Arthrodesis status; M48.07 Spinal stenosis, lumbosacral region
CPT/HCPCS: 72131

== ENCOUNTER 2023-10-23 11:55 | Inpatient (IN) | payer MEDICARE, MEDICAID, SELFPAY ==
[2023-10-23] VITALS (10 sets, daily range): BP systolic 91–114; BP diastolic 56–77; PULSE 68–84; TEMP 36.4–36.7; O2SAT 93–98; BMI 36.8
--- NOTE | 2023-10-23 12:47 | P.HP_ITS ---
HPI H&P: HPI History of Present Illness Chief complaint: FLUID OVERLOAD Narrative: Patient called the office again with increasing fluid. Her weight is up 18 pounds over the last week. We have tripled her diuretic dose without any significant benefit. In the past patient has had great success with IV Bumex. When I saw the patient she was not really having any respiratory distress. Just uncomfortable and some shortness of breath with activity due to her leg strength. No chest tightness. Just uncomfortable caring on the extra weight. Opioid HPI Opioid Management Most Recent Opioid Data: Last Pain Scale 8 10/13/23 09:00 Last ORT Total Score 0 10/23/23 12:31 Last ORT Risk Category Low Risk 10/23/23 12:31 PFSH PFSH Medical History (Updated 10/17/23 @ 00:00 by ) Chronic kidney disease ?N18.9 - Chronic kidney disease, unspecified (ICD-10) Acute kidney injury ?N17.9 - Acute kidney failure, unspecified (ICD-10) Edema of lower leg due to peripheral venous insufficiency ?I87.2 - Venous insufficiency (chronic) (peripheral) (ICD-10) ?R60.0 - Localized edema (ICD-10) Depression ?F32.A - Depression, unspecified (ICD-10) Gastroenteritis ?K52.9 - Noninfective gastroenteritis and colitis, unspecified (ICD-10) Migraine without aura and without status migrainosus, not intractable ?G43.009 - Migraine without aura, not intractable, without status migrainosus (ICD-10) Chronic heart failure with preserved ejection fraction (HFpEF) ?I50.32 - Chronic diastolic (congestive) heart failure (ICD-10) Chest pain ?R07.9 - Chest pain, unspecified (ICD-10) Dyspnea ?R06.00 - Dyspnea, unspecified (ICD-10) Fluid overload ?E87.70 - Fluid overload, unspecified (ICD-10) Osteoarthritis ?M19.90 - Unspecified osteoarthritis, unspecified site (ICD-10) Anemia ?D64.9 - Anemia, unspecified (ICD-10) Anxiety ?F41.9 - Anxiety disorder, unspecified (ICD-10) Stroke ?I63.9 - Cerebral infarction, unspecified (ICD-10) Acid reflux ?K21.9 - Gastro-esophageal reflux disease without esophagitis (ICD-10) Hypothyroid ?E03.9 - Hypothyroidism, unspecified (ICD-10) Kidney failure ?N19 - Unspecified kidney failure (ICD-10) COPD (chronic obstructive pulmonary disease) ?J44.9 - Chronic obstructive pulmonary disease, unspecified (ICD-10) Asthma ?J45.909 - Unspecified asthma, uncomplicated (ICD-10) CHF (congestive heart failure) ?I50.9 - Heart failure, unspecified (ICD-10) Irregular heart beat ?I49.9 - Cardiac arrhythmia, unspecified (ICD-10) HTN (hypertension) ?I10 - Essential (primary) hypertension (ICD-10) Heart attack ?I21.9 - Acute myocardial infarction, unspecified (ICD-10) Lumbar spondylosis ?M47.816 - Spondylosis without myelopathy or radiculopathy, lumbar region (ICD-10) Surgical History H/O hysterectomy with oophorectomy H/O gastric bypass ?Z98.84 - Bariatric surgery status (ICD-10) History of hernia repair ?Z98.890 - Other specified postprocedural states (ICD-10) ?Z87.19 - Personal history of other diseases of the digestive system (ICD-10) History of rotator cuff surgery ?Z98.890 - Other specified postprocedural states (ICD-10) History of right knee joint replacement ?Z96.651 - Presence of right artificial knee joint (ICD-10) History of appendectomy ?Z90.49 - Acquired absence of other specified parts of digestive tract (ICD- 10) Hx of cholecystectomy ?Z90.49 - Acquired absence of other specified parts of digestive tract (ICD-10) Family History Father Family history of CHF (congestive heart failure) Family history of diabetes mellitus Family history of hypertension Family history of myocardial infarction Family history of stroke Mother Family history of CHF (congestive heart failure) Family history of COPD (chronic obstructive pulmonary disease) Family history of diabetes mellitus Family history of hypertension Family history of myocardial infarction Family history of stroke Social History Within the past year, how often did you have a drink containing alcohol: never Within the past year, how often did you have six or more drinks on one occasion: never Score interpretation: A score less than 3 is consistent with normal alcohol consumption. 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 Highest level of school completed/degree received: some college, no degree Are you now , , , , never or living with a partner: In a typical week, how many times do you talk on the telephone with family, friends, or neighbors: 3 or more times per week How often do you get together with friends or relatives: twice per week How often do you attend zoroastrian or druze services: 4 or more times per year Do you belong to any clubs or organizations such as zoroastrian groups unions, [employer] or athletic groups, or school groups: no Total score: 3 Score interpretation: A score of greater than or equal to 2 indicates the lowest level of social isolation. Little interest or pleasure in doing things: not at all Feeling down, depressed, or hopeless: several days Feel stressed/tense/nervous/anxious/difficulty sleeping: to some extent Life stressors: recent of family or friend Do you think of yourself as: straight/heterosexual Gender Identity: female Meds Home Medications and Allergies Home Medications ?Medication ?Instructions ?Recorded ?Confirmed ?Type alprazolam 0.5 mg tablet 0.5 mg PO BID PRN anxiety 12/08/22 10/23/23 History amitriptyline 150 mg tablet 300 mg PO BEDTIME 12/08/22 10/23/23 History calcium acetate(phosphat bind) 667 667 mg PO BID 12/08/22 10/23/23 History mg capsule levothyroxine 100 mcg tablet 100 mcg PO DAILY 12/08/22 10/23/23 History linaclotide 290 mcg capsule 290 mcg PO DAILY 12/08/22 10/23/23 History (Linzess) oxycodone-acetaminophen 5 mg-325 2 tab PO Q6H PRN pain 12/08/22 10/23/23 History mg tablet primidone 50 mg tablet 150 mg PO BEDTIME 12/08/22 10/23/23 History tizanidine 4 mg tablet (Zanaflex) 4 mg PO Q6H PRN muscle spasticity 12/08/22 10/23/23 History aripiprazole 2 mg tablet (Abilify) 2 mg PO DAILY 01/23/23 10/23/23 History bumetanide 1 mg tablet 1 mg PO TID PRN SWELLING 01/23/23 10/23/23 History spironolactone 50 mg tablet 50 mg PO DAILY PRN swelling 01/24/23 10/23/23 History (Aldactone) butorphanol 10 mg/mL nasal spray 1 spray intranasal .QD PRN pain 02/03/23 10/23/23 History apixaban 2.5 mg tablet (Eliquis) 2.5 mg PO BID 07/20/23 10/23/23 History pregabalin 50 mg capsule (Lyrica) 50 mg PO BID #60 caps 07/22/23 10/23/23 Rx azelastine 0.05 % eye drops 1 drp ophthalmic (eye) DAILY 09/29/23 10/23/23 History desvenlafaxine succinate 50 mg 50 mg PO DAILY 09/29/23 10/23/23 History tablet,extended release 24 hr diclofenac sodium 1 % topical gel 2 g topical .QD PRN 09/29/23 10/23/23 History PAIN/INFLAMMATION doxepin 10 mg capsule 10 mg PO BID 09/29/23 10/23/23 History escitalopram oxalate 20 mg tablet 20 mg PO DAILY 09/29/23 10/23/23 History pantoprazole 40 mg tablet,delayed 40 mg PO DAILY 09/29/23 10/23/23 History release fentanyl 100 mcg/hr transdermal 1 patch transdermal Q72H 10/12/23 10/23/23 History patch sacubitril 49 mg-valsartan 51 mg 1 tab PO BID #60 tabs 10/13/23 10/23/23 Rx tablet (Entresto) Allergies Allergy/AdvReac Type Severity Reaction Status Date / Time povidone-iodine Allergy Intermediate Verified 09/29/23 14:41 [From Betadine] amoxicillin [From Augmentin] Allergy Mild Vomiting Verified 09/29/23 14:41 clavulanic acid Allergy Mild Vomiting Verified 09/29/23 14:41 [From Augmentin] Sulfa (Sulfonamide Allergy Mild Vomiting Verified 09/29/23 14:41 Antibiotics) ciprofloxacin [From Cipro] Allergy Unknown Verified 09/29/23 14:41 Exam Constitutional Vital Signs, click to edit/add: Last Vital Signs Temp 97.6 F 10/23/23 12:31 Pulse 68 10/23/23 12:31 Resp 16 10/23/23 12:31 BP 114/56 10/23/23 12:31 Pulse Ox 98 10/23/23 12:31 O2 Del Method Room Air 10/23/23 12:31 Documenting provider has reviewed patient's vital signs: yes Common normals: no apparent distress Chest Common normals: inspection of chest normal Respiratory Common normals: normal respiratory effort, no retractions and clear to auscultation bilaterally Cardio Common normals: regular rate, regular rhythm and no murmurs Extremity Common normals: normal to inspection (4+ edema definitely progressed from previous exams) Assessment and Plan Assessment and Plan (1) Fluid overload: (2) Hypothyroid: (3) Chronic kidney disease: Plan Findings on admission: Patient with significant fluid overload, 18 pounds up from previous weight and this is despite tripling of her diuretics. Nothing has been effective for her in the past as the Bumex drip. Will check a BNP to make sure no heart failure. Lung exam is clear though. Consult to telemetry nephrology for long-term advice. Also try to do some lymphedema treatments while here. Edema lower extremities-likely secondary to above-check ultrasound to rule out DVT Hypothyroidism-continue with current dosing has had recent labs and normal Chronic kidney disease stage III-this will likely get little bit worse with her diuresis, monitor daily Cervical lumbar radiculopathy-continue with current medications. Will use as needed Dilaudid as the bed is likely to make her back worse Insomnia-continue with home medications GERD-continue with home medications Admission status: Patient has failed outpatient treatment with oral diuretics, she failed observation treatment with 1 round of Bumex drip last admission, patient will likely need 3 to 4-day stay for IV diuresis. Consult to telemetry nephrology. Medically necessary treatment will span 2 midnights. Inpatient status.
--- NOTE | 2023-10-23 13:19 | PC.NURSE ---
1315 Labs drawn from port-a-cath and flushed with normal saline.
[2023-10-23 13:25] LABS: Basophils Percent Auto 0.4 % (0.2-2.0); Eosinophils Absolute Auto 0.1 10^3/uL (0.0-0.7); Eosinophils Percent Auto 1.3 % (0.9-7.0); Hematocrit 29.2 % (36.0-48.0); Lymphocytes Absolute Auto 1.1 10^3/uL (1.2-3.8); Lymphocytes Percent Auto 10.9 % (20.5-60.0); Mean Corpuscular HGB Conc 30.8 g/dL (29.9-35.2); Mean Corpuscular Hemoglobin 30.8 pg (26.7-34.0); Monocytes Absolute Auto 0.7 10^3/uL (0.3-0.8); Monocytes Percent Auto 7.7 % (1.7-12.0); Neutrophils Absolute Auto 7.6 10^3/uL (1.4-6.5); Neutrophils Percent Auto 78.7 % (43.0-75.0); Platelet Count 274 10^3/uL (150-450); Red Blood Count 2.92 10^6/uL (4.20-5.40); White Blood Count 9.6 10^3/uL (4.0-11.0)
--- NOTE | 2023-10-23 13:29 | US_ITS ---
The [address] [address] Patient Name: JOSE CLEMENTS MRN: [id number] date: 1960 Sex: F Assigned Patient Location: [place] Current Patient Location: [place] Accession/Order Number: [id number] Exam Date: 10/23/2023 13:30 Report Date: 10/23/2023 15:00 At the request of: ANGLE SANTANA Procedure: US venous doppler LE BI EXAMINATION: US venous doppler LE BI HISTORY: edema COMPARISON: Ultrasound venous Doppler bilateral 07/20/2023 FINDINGS: REGION: Bilateral lower extremities THROMBI: None. COMPRESSIBILITY: Normal compressibility. FLOW: Normal waveform and antegrade flow between 5 and 20 cm/s. OTHER: Subcutaneous edema bilaterally, predominantly within the distal lower extremities. US/US venous doppler LE BI IMPRESSION: 1. No deep vein thrombus within the right or left lower extremity. Electronically authenticated by: BUNNY ZEPEDA Date: 10/23/2023 15:00
[2023-10-23 13:41] LABS: Erythrocyte Sedimentation Rate 59 mm/hr (<=30)
[2023-10-23] MEDS: BUMETANIDE 10 MG in 0.9 % SODIUM CHLORIDE 160 ML 20 MG IV (13:42)
--- NOTE | 2023-10-23 13:43 | SWNOTE1 ---
SW met with pt to discuss dc needs. Pt was just here about a week or so ago. Voiced her joints and everywhere was achey as she filled up with fluid. Pt has a rollator at home that she uses. Pt voiced Dr. Godinez is working on getting her a lymphedema pump, waiting for insurance to approve it. Nursing in room as well, pt waiting for meds to be given. Pt voiced [facility] was supposed to be in today, SW to check in with them. At this time pt voices no other needs. SW to follow as needed. Important Message from [employer] reviewed and discussed with patient. Pt. verbalized understanding and signed the form. Original given to patient and copy placed in patient?s chart.
[2023-10-23 13:58] LABS: Alanine Aminotransferase 29 U/L (14-59); Albumin Globulin Ratio 0.9; Albumin Level 3.2 g/dL (3.4-5.0); Alkaline Phosphatase 278 U/L (46-116); Aspartate Amino Transferase 28 U/L (15-37); Bilirubin Total 0.3 mg/dL (0.2-1.0); Calcium 8.9 mg/dL (8.5-10.1); Carbon Dioxide 21.2 mmol/L (21.0-32.0); Chloride 101 mmol/L (98-107); Estimated GFR (African America 30 (>=60); Estimated GFR (Non-African Ame 25 (>=60); Globulin 3.5 g/dL; Glucose 89 mg/dL (74-106); Magnesium 2.3 mg/dL (1.8-2.4); Potassium 4.2 mmol/L (3.5-5.1); Sodium 134 mmol/L (136-145); Total Protein 6.7 g/dL (6.4-8.2)
[2023-10-23] MEDS: OXYCODONE HCL/ACETAMINOPHEN 5MG/325MG 2 TAB PO ×2 (14:29→21:49)
[2023-10-23] MEDS: ONDANSETRON PF 4 MG/2 ML VIAL IV (16:09)
[2023-10-23] MEDS: TIZANIDINE HCL 4 MG TABLET PO (16:09)
[2023-10-23] MEDS: HYDROMORPHONE HCL 0.5 MG/0.5 ML SYRINGE IV (16:56)
[2023-10-23] MEDS: SACUBITRIL/VALSARTAN 24 MG-26 MG TABLET 4 TAB PO (21:49)
[2023-10-23] MEDS: ALPRAZOLAM 0.5 MG TABLET PO (21:49)
[2023-10-23] MEDS: CALCIUM ACETATE 667 MG CAPSULE PO (21:49)
[2023-10-23] MEDS: FENTANYL 25 MCG/HR PATCH.TD72 TD (21:49)
[2023-10-23] MEDS: PRIMIDONE 50 MG TABLET 150 MG PO (21:50)
[2023-10-23] MEDS: AMITRIPTYLINE HCL 50 MG TABLET 300 MG PO (21:50)
[2023-10-23] MEDS: PREGABALIN 50 MG CAPSULE PO (21:50)
[2023-10-23] MEDS: DOXEPIN HCL 10 MG CAPSULE PO (21:50)
[2023-10-23] MEDS: APIXABAN 5 MG TABLET 2.5 MG PO (21:50)
[2023-10-24] VITALS (19 sets, daily range): BP systolic 90–110; BP diastolic 43–69; PULSE 71–100; TEMP 36.4–36.7; O2SAT 92–96
[2023-10-24] MEDS: HYDROMORPHONE HCL 0.5 MG/0.5 ML SYRINGE IV (04:40)
[2023-10-24 04:58] LABS: Basophils Percent Auto 0.3 % (0.2-2.0); Eosinophils Absolute Auto 0.2 10^3/uL (0.0-0.7); Eosinophils Percent Auto 2.3 % (0.9-7.0); Hematocrit 31.3 % (36.0-48.0); Hemoglobin 9.5 g/dL (12.0-16.0); Immature Granulocytes Abs Auto 0.09 10^3/uL (0.00-0.03); Immature Granulocytes Pct Auto 1.2 % (0.0-0.5); Lymphocytes Absolute Auto 1.5 10^3/uL (1.2-3.8); Lymphocytes Percent Auto 20.2 % (20.5-60.0); Mean Corpuscular HGB Conc 30.4 g/dL (29.9-35.2); Mean Corpuscular Hemoglobin 30.4 pg (26.7-34.0); Mean Platelet Volume 8.9 fL (9.5-13.5); Monocytes Absolute Auto 0.5 10^3/uL (0.3-0.8); Monocytes Percent Auto 6.4 % (1.7-12.0); Neutrophils Absolute Auto 5.1 10^3/uL (1.4-6.5); Neutrophils Percent Auto 69.6 % (43.0-75.0); Platelet Count 324 10^3/uL (150-450); Red Blood Count 3.13 10^6/uL (4.20-5.40); Red Cell Distribution Width 14.9 % (11.0-15.0); White Blood Count 7.3 10^3/uL (4.0-11.0)
[2023-10-24 05:01] LABS: Anion Gap 15.8; BUN Creatinine Ratio 44.4; Carbon Dioxide 24.6 mmol/L (21.0-32.0); Chloride 100 mmol/L (98-107); Estimated GFR (African America 31 (>=60); Estimated GFR (Non-African Ame 26 (>=60); Glucose 99 mg/dL (74-106); Potassium 4.4 mmol/L (3.5-5.1); Sodium 136 mmol/L (136-145)
[2023-10-24] MEDS: OMEPRAZOLE 40 MG CAPSULE.DR PO (05:48)
[2023-10-24] MEDS: LEVOTHYROXINE SODIUM 100 MCG TABLET PO (05:48)
--- NOTE | 2023-10-24 08:09 | CM.NOTE ---
Rounds made with Dr. Godinez, pt continues with bilat lower extremity swelling. Pt states It makes it very difficult to ambulate . Dr. Godinez discussed with pt continuing IV Bumex again today.
--- NOTE | 2023-10-24 08:11 | P.PN_ITS ---
Progress Note: Subjective Subjective Interval history: Patient still has significant weakness with ambulation secondary to her increase in her weight. Did diurese 6 L overnight. Exam Constitutional Vital Signs, click to edit/add: Last Vital Signs Temp 97.7 F 10/24/23 03:33 Pulse 86 10/24/23 04:00 Resp 16 10/24/23 05:12 BP 110/69 10/24/23 03:33 Pulse Ox 92 L 10/24/23 05:12 O2 Del Method Room Air 10/24/23 05:12 Documenting provider has reviewed patient's vital signs: yes Common normals: no apparent distress Chest Common normals: inspection of chest normal Respiratory Common normals: normal respiratory effort, no retractions and clear to auscultation bilaterally Cardio Common normals: regular rate, regular rhythm and no murmurs Extremity Common normals: abnormal to inspection (3-4+ edema -somewhat better from admission but not her baseline) Progress Note: Objective Labs Labs: Short CBC 10/23/23 10/24/23 Range/Units 13:13 04:39 WBC 9.6 7.3 (4.0-11.0) 10^3/uL Hgb 9.0 L 9.5 L (12.0-16.0) g/dL Hct 29.2 L 31.3 L (36.0-48.0) % Plt Count 274 324 (150-450) 10^3/uL BMP 10/23/23 10/24/23 13:13 04:39 Sodium 134 L 136 Potassium 4.2 4.4 Chloride 101 100 Carbon Dioxide 21.2 24.6 BUN 93.0 H* 88.0 H* Creatinine 2.02 H 1.98 H Glucose 89 99 Calcium 8.9 9.0 Liver Function 10/23/23 Range/Units 13:13 Total Bilirubin 0.3 (0.2-1.0) mg/dL AST 28 (15-37) U/L ALT 29 (14-59) U/L Alkaline Phosphatase 278 H (46-116) U/L Albumin 3.2 L (3.4-5.0) g/dL Progress Note: A&P Assessment and Plan (1) Fluid overload: (2) Hypothyroid: (3) Chronic kidney disease: Plan Findings on admission: Patient with significant fluid overload, 18 pounds up from previous weight and this is despite tripling of her diuretics. Bumex drip so far with a 6 L output, creatinine actually improved. Will repeat Bumex later today. Safer to have about a 12-hour gap. Edema lower extremities-likely secondary to above-no DVT-edema somewhat better, continue with plan as outlined above Hyponatremia-improved. History of water intoxication but last serum osmolality was normal Hypothyroidism-continue with current dosing has had recent labs and normal Chronic kidney disease stage III-actually somewhat improved today. Continue to monitor Anemia of chronic kidney disease and iron deficiency. Continue to monitor. Improved from previous day. Cervical and lumbar radiculopathy-continue with current medications. Will use as needed Dilaudid as the bed is likely to make her back worse Insomnia-continue with home medications GERD-continue with home medications Admission status: Patient has failed outpatient treatment with oral diuretics, she failed observation treatment with 1 round of Bumex drip last admission, patient will likely need 3 to 4-day stay for IV diuresis. Consult to telemetry nephrology. Medically necessary treatment will span 2 midnights. Inpatient status. ?
[2023-10-24 08:24] LABS: Bilirubin Urine NEGATIVE (NEGATIVE); Blood Urine NEGATIVE (NEGATIVE); Clarity Urine CLEAR (CLEAR); Color Urine LT. YELLOW (YELLOW); Glucose Urine UA NEGATIVE (NEGATIVE); Ketones Urine NEGATIVE (NEGATIVE); Leukocyte Esterase Urine NEGATIVE (NEGATIVE); Nitrite Urine NEGATIVE (NEGATIVE); Protein Urine NEGATIVE (NEG/TRACE); Urobilinogen Urine 0.2 EU/dL (0.2-1.0)
[2023-10-24 08:27] LABS: Urine Microscopic Indicated NO
[2023-10-24] MEDS: ARIPIPRAZOLE 2 MG TABLET PO (08:34)
[2023-10-24] MEDS: DESVENLAFAXINE SUCCINATE 50 MG TAB.ER.24H PO (08:34)
[2023-10-24] MEDS: ESCITALOPRAM 10 MG TABLET 20 MG PO (08:34)
[2023-10-24] MEDS: PREGABALIN 50 MG CAPSULE PO ×2 (08:34→21:25)
[2023-10-24] MEDS: CALCIUM ACETATE 667 MG CAPSULE PO ×2 (08:34→21:25)
[2023-10-24] MEDS: APIXABAN 5 MG TABLET 2.5 MG PO ×2 (08:34→21:25)
[2023-10-24] MEDS: OXYCODONE HCL/ACETAMINOPHEN 5MG/325MG 2 TAB PO ×2 (08:34→16:37)
[2023-10-24] MEDS: DOXEPIN HCL 10 MG CAPSULE PO ×2 (08:34→21:25)
[2023-10-24] MEDS: BUMETANIDE 10 MG in 0.9 % SODIUM CHLORIDE 160 ML 20 MG IV (13:28)
--- NOTE | 2023-10-24 15:02 | SWNOTE1 ---
SW sent physician note from today and PT/OT note from today to [facility].
[2023-10-24] MEDS: FENTANYL 50 MCG/HR PATCH.TD72 100 MCG TD (21:24)
[2023-10-24] MEDS: PRIMIDONE 50 MG TABLET 150 MG PO (21:25)
[2023-10-24] MEDS: SACUBITRIL/VALSARTAN 24 MG-26 MG TABLET 4 TAB PO (21:25)
[2023-10-24] MEDS: AMITRIPTYLINE HCL 50 MG TABLET 300 MG PO (21:25)
[2023-10-25] VITALS (18 sets, daily range): BP systolic 90–118; BP diastolic 50–84; PULSE 11–112; TEMP 36.4–36.8; O2SAT 91–97
--- NOTE | 2023-10-25 00:15 | PC.NURSE ---
pt used call light to request pain medications. RN notified and pulled medications for patient. Upon walking into patient room she is asleep and snoring. RN did not wake up patient to administer pain medications at this time.
[2023-10-25] MEDS: ACETAMINOPHEN 500 MG TABLET 1000 MG PO (04:51)
[2023-10-25 05:14] LABS: Basophils Percent Auto 0.4 % (0.2-2.0); Eosinophils Absolute Auto 0.2 10^3/uL (0.0-0.7); Eosinophils Percent Auto 2.4 % (0.9-7.0); Hemoglobin 8.1 g/dL (12.0-16.0); Immature Granulocytes Abs Auto 0.09 10^3/uL (0.00-0.03); Immature Granulocytes Pct Auto 1.3 % (0.0-0.5); Lymphocytes Absolute Auto 1.2 10^3/uL (1.2-3.8); Lymphocytes Percent Auto 18.1 % (20.5-60.0); Mean Corpuscular HGB Conc 31.2 g/dL (29.9-35.2); Mean Corpuscular Hemoglobin 30.7 pg (26.7-34.0); Mean Corpuscular Volume 98.5 fL (81.0-99.0); Mean Platelet Volume 8.9 fL (9.5-13.5); Monocytes Absolute Auto 0.5 10^3/uL (0.3-0.8); Monocytes Percent Auto 7.9 % (1.7-12.0); Neutrophils Absolute Auto 4.7 10^3/uL (1.4-6.5); Neutrophils Percent Auto 69.9 % (43.0-75.0); Platelet Count 266 10^3/uL (150-450); Red Blood Count 2.64 10^6/uL (4.20-5.40); Red Cell Distribution Width 14.9 % (11.0-15.0); White Blood Count 6.7 10^3/uL (4.0-11.0)
[2023-10-25 05:22] LABS: Anion Gap 10.9; BUN Creatinine Ratio 48.6; Calcium 8.5 mg/dL (8.5-10.1); Carbon Dioxide 27.5 mmol/L (21.0-32.0); Chloride 100 mmol/L (98-107); Estimated GFR (African America 36 (>=60); Estimated GFR (Non-African Ame 30 (>=60); Glucose 94 mg/dL (74-106); Potassium 4.4 mmol/L (3.5-5.1); Sodium 134 mmol/L (136-145)
[2023-10-25] MEDS: OMEPRAZOLE 40 MG CAPSULE.DR PO (06:07)
[2023-10-25] MEDS: LEVOTHYROXINE SODIUM 100 MCG TABLET PO (06:07)
--- NOTE | 2023-10-25 08:13 | CM.NOTE ---
Rounds made with Dr. Godinez. Mabel states is itching and would like something to help. Dr. Godinez to order Benadry IV for relief. No plan for discharge today.
--- NOTE | 2023-10-25 08:31 | P.PN_ITS ---
Progress Note: Subjective Subjective Interval history: With edema improving, she is feeling overall improved. Still with significant swelling in her lower extremities making it difficult for her to ambulate Exam Constitutional Vital Signs, click to edit/add: Last Vital Signs Temp 97.6 F 10/25/23 04:00 Pulse 80 10/25/23 08:00 Resp 16 10/25/23 04:00 BP 109/68 10/25/23 04:00 Pulse Ox 94 L 10/25/23 04:00 O2 Del Method Room Air 10/25/23 04:00 Documenting provider has reviewed patient's vital signs: yes Common normals: no apparent distress Chest Common normals: inspection of chest normal Respiratory Common normals: normal respiratory effort, no retractions and clear to auscultation bilaterally Cardio Common normals: regular rate, regular rhythm and no murmurs Extremity Common normals: abnormal to inspection (3+ edema - better from admission but not her baseline) Progress Note: Objective Labs Labs: Short CBC 10/25/23 Range/Units 04:58 WBC 6.7 (4.0-11.0) 10^3/uL Hgb 8.1 L (12.0-16.0) g/dL Hct 26.0 L (36.0-48.0) % Plt Count 266 (150-450) 10^3/uL BMP 10/25/23 04:58 Sodium 134 L Potassium 4.4 Chloride 100 Carbon Dioxide 27.5 BUN 84.0 H* Creatinine 1.73 H Glucose 94 Calcium 8.5 Progress Note: A&P Assessment and Plan (1) Fluid overload: (2) Hypothyroid: (3) Chronic kidney disease: Plan Findings on admission: Patient with significant fluid overload, 18 pounds up from previous weight and this is despite tripling of her diuretics. Continue to get good diuresis, total out is 9.8 L. Not quite as much yesterday. Creatinine that was improved from admission. Will repeat Bumex drip again today, since fabi wasserman is tolerating it Edema lower extremities-likely secondary to above-no DVT-slowly improving Hyponatremia-down somewhat today. Hypothyroidism-continue with current dosing has had recent labs and normal Chronic kidney disease stage III-continues to improve since admission Anemia of chronic kidney disease and iron deficiency. Continue to monitor. Down somewhat from yesterday, check Hemoccult Cervical and lumbar radiculopathy-continue with current medications. Will use as needed Dilaudid as the bed is likely to make her back worse Insomnia-continue with home medications Generalized pruritus-no rash, likely secondary to fluid fluctuation, will try IV Benadryl GERD-continue with home medications Admission status: Patient has failed outpatient treatment with oral diuretics, she failed observation treatment with 1 round of Bumex drip last admission, patient will likely need 3 to 4-day stay for IV diuresis. Consult to telemetry nephrology. Medically necessary treatment will span 2 midnights. Maintain inpatient status. At least 1 more day of admission and possibly 2 based on effective dose of IV Bumex ?
[2023-10-25] MEDS: CALCIUM ACETATE 667 MG CAPSULE PO (09:11)
[2023-10-25] MEDS: SACUBITRIL/VALSARTAN 24 MG-26 MG TABLET 4 TAB PO ×2 (09:11→21:07)
[2023-10-25] MEDS: DESVENLAFAXINE SUCCINATE 50 MG TAB.ER.24H PO (09:12)
[2023-10-25] MEDS: TIZANIDINE HCL 4 MG TABLET PO ×2 (09:12→17:22)
[2023-10-25] MEDS: ESCITALOPRAM 10 MG TABLET 20 MG PO (09:12)
[2023-10-25] MEDS: PREGABALIN 50 MG CAPSULE PO ×2 (09:14→21:07)
[2023-10-25] MEDS: ARIPIPRAZOLE 2 MG TABLET PO (09:14)
[2023-10-25] MEDS: OXYCODONE HCL/ACETAMINOPHEN 5MG/325MG 2 TAB PO ×2 (09:14→20:06)
[2023-10-25] MEDS: DOXEPIN HCL 10 MG CAPSULE PO ×2 (09:14→21:07)
[2023-10-25] MEDS: APIXABAN 5 MG TABLET 2.5 MG PO ×2 (09:15→21:07)
[2023-10-25] MEDS: DIPHENHYDRAMINE HCL 50 MG/ML (1ML) VIAL 25 MG IV (10:43)
[2023-10-25] MEDS: BUMETANIDE 10 MG in 0.9 % SODIUM CHLORIDE 160 ML 20 MG IV (11:27)
--- NOTE | 2023-10-25 13:40 | PM.NEPCN ---
History of Present Illness Reason for Consult Consult date: 10/25/23 Reason for consult: acute renal failure Requesting physician: Yuri Godinez Chief Complaint Chief complaint: FLUID OVERLOAD History of Present Illness Narrative: 63 yo f with PMH of CHF came to the hospital with fluid overload. Was on entresto and changed to coreg recently. He is on spironolactone. She lost more than 10 lbs since here. currently on aldactone, entresto and bumex drip which was started earlier. NO CP or SOB currently. Still has LE edema. Phos is running high. Review of Systems ROS Status of ROS 10 or more systems reviewed and unremarkable except as noted in history and below [facility] Medical History (Updated 10/17/23 @ 00:00 by ) Chronic kidney disease ?N18.9 - Chronic kidney disease, unspecified (ICD-10) Acute kidney injury ?N17.9 - Acute kidney failure, unspecified (ICD-10) Edema of lower leg due to peripheral venous insufficiency ?I87.2 - Venous insufficiency (chronic) (peripheral) (ICD-10) ?R60.0 - Localized edema (ICD-10) Depression ?F32.A - Depression, unspecified (ICD-10) Gastroenteritis ?K52.9 - Noninfective gastroenteritis and colitis, unspecified (ICD-10) Migraine without aura and without status migrainosus, not intractable ?G43.009 - Migraine without aura, not intractable, without status migrainosus (ICD-10) Chronic heart failure with preserved ejection fraction (HFpEF) ?I50.32 - Chronic diastolic (congestive) heart failure (ICD-10) Chest pain ?R07.9 - Chest pain, unspecified (ICD-10) Dyspnea ?R06.00 - Dyspnea, unspecified (ICD-10) Fluid overload ?E87.70 - Fluid overload, unspecified (ICD-10) Osteoarthritis ?M19.90 - Unspecified osteoarthritis, unspecified site (ICD-10) Anemia ?D64.9 - Anemia, unspecified (ICD-10) Anxiety ?F41.9 - Anxiety disorder, unspecified (ICD-10) Stroke ?I63.9 - Cerebral infarction, unspecified (ICD-10) Acid reflux ?K21.9 - Gastro-esophageal reflux disease without esophagitis (ICD-10) Hypothyroid ?E03.9 - Hypothyroidism, unspecified (ICD-10) Kidney failure ?N19 - Unspecified kidney failure (ICD-10) COPD (chronic obstructive pulmonary disease) ?J44.9 - Chronic obstructive pulmonary disease, unspecified (ICD-10) Asthma ?J45.909 - Unspecified asthma, uncomplicated (ICD-10) CHF (congestive heart failure) ?I50.9 - Heart failure, unspecified (ICD-10) Irregular heart beat ?I49.9 - Cardiac arrhythmia, unspecified (ICD-10) HTN (hypertension) ?I10 - Essential (primary) hypertension (ICD-10) Heart attack ?I21.9 - Acute myocardial infarction, unspecified (ICD-10) Lumbar spondylosis ?M47.816 - Spondylosis without myelopathy or radiculopathy, lumbar region (ICD-10) Surgical History H/O hysterectomy with oophorectomy H/O gastric bypass ?Z98.84 - Bariatric surgery status (ICD-10) History of hernia repair ?Z98.890 - Other specified postprocedural states (ICD-10) ?Z87.19 - Personal history of other diseases of the digestive system (ICD-10) History of rotator cuff surgery ?Z98.890 - Other specified postprocedural states (ICD-10) History of right knee joint replacement ?Z96.651 - Presence of right artificial knee joint (ICD-10) History of appendectomy ?Z90.49 - Acquired absence of other specified parts of digestive tract (ICD-10) Hx of cholecystectomy ?Z90.49 - Acquired absence of other specified parts of digestive tract (ICD-10) Family History Father Family history of CHF (congestive heart failure) Family history of diabetes mellitus Family history of hypertension Family history of myocardial infarction Family history of stroke Mother Family history of CHF (congestive heart failure) Family history of COPD (chronic obstructive pulmonary disease) Family history of diabetes mellitus Family history of hypertension Family history of myocardial infarction Family history of stroke Social History Within the past year, how often did you have a drink containing alcohol: never Within the past year, how often did you have six or more drinks on one occasion: never Score interpretation: A score less than 3 is consistent with normal alcohol consumption. 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 Highest level of school completed/degree received: some college, no degree Are you now , , , , never or living with a partner: In a typical week, how many times do you talk on the telephone with family, friends, or neighbors: 3 or more times per week How often do you get together with friends or relatives: twice per week How often do you attend zoroastrian or christianity services: 4 or more times per year Do you belong to any clubs or organizations such as zoroastrian groups unions, [employer] or athletic groups, or school groups: no Total score: 3 Score interpretation: A score of greater than or equal to 2 indicates the lowest level of social isolation. Little interest or pleasure in doing things: not at all Feeling down, depressed, or hopeless: several days Feel stressed/tense/nervous/anxious/difficulty sleeping: to some extent Life stressors: recent of family or friend Do you think of yourself as: straight/heterosexual Gender Identity: female Meds Home Medications and Allergies Home Medications ?Medication ?Instructions ?Recorded ?Confirmed ?Type alprazolam 0.5 mg tablet 0.5 mg PO BID PRN anxiety 12/08/22 10/23/23 History amitriptyline 150 mg tablet 300 mg PO BEDTIME 12/08/22 10/23/23 History calcium acetate(phosphat bind) 667 667 mg PO BID 12/08/22 10/23/23 History mg capsule levothyroxine 100 mcg tablet 100 mcg PO DAILY 12/08/22 10/23/23 History linaclotide 290 mcg capsule 290 mcg PO DAILY 12/08/22 10/23/23 History (Linzess) oxycodone-acetaminophen 5 mg-325 2 tab PO Q6H PRN pain 12/08/22 10/23/23 History mg tablet primidone 50 mg tablet 150 mg PO BEDTIME 12/08/22 10/23/23 History tizanidine 4 mg tablet (Zanaflex) 4 mg PO Q6H PRN muscle spasticity 12/08/22 10/23/23 History aripiprazole 2 mg tablet (Abilify) 2 mg PO DAILY 01/23/23 10/23/23 History bumetanide 1 mg tablet 1 mg PO TID PRN SWELLING 01/23/23 10/23/23 History spironolactone 50 mg tablet 50 mg PO DAILY PRN swelling 01/24/23 10/23/23 History (Aldactone) butorphanol 10 mg/mL nasal spray 1 spray intranasal .QD PRN pain 02/03/23 10/23/23 History apixaban 2.5 mg tablet (Eliquis) 2.5 mg PO BID 07/20/23 10/23/23 History pregabalin 50 mg capsule (Lyrica) 50 mg PO BID #60 caps 07/22/23 10/23/23 Rx azelastine 0.05 % eye drops 1 drp ophthalmic (eye) DAILY 09/29/23 10/23/23 History desvenlafaxine succinate 50 mg 50 mg PO DAILY 09/29/23 10/23/23 History tablet,extended release 24 hr diclofenac sodium 1 % topical gel 2 g topical .QD PRN 09/29/23 10/23/23 History PAIN/INFLAMMATION doxepin 10 mg capsule 10 mg PO BID 09/29/23 10/23/23 History escitalopram oxalate 20 mg tablet 20 mg PO DAILY 09/29/23 10/23/23 History pantoprazole 40 mg tablet,delayed 40 mg PO DAILY 09/29/23 10/23/23 History release fentanyl 100 mcg/hr transdermal 1 patch transdermal Q72H 10/12/23 10/23/23 History patch sacubitril 49 mg-valsartan 51 mg 1 tab PO BID #60 tabs 10/13/23 10/23/23 Rx tablet (Entresto) liothyronine 25 mcg tablet 25 mcg PO .qd 10/23/23 10/23/23 History pramipexole 1 mg tablet 1 mg PO .qd 10/23/23 10/23/23 History spironolactone 100 mg tablet 100 mg PO BID 10/23/23 10/23/23 History Allergies Allergy/AdvReac Type Severity Reaction Status Date / Time povidone-iodine Allergy Intermediate Verified 09/29/23 14:41 [From Betadine] amoxicillin [From Augmentin] Allergy Mild Vomiting Verified 09/29/23 14:41 clavulanic acid Allergy Mild Vomiting Verified 09/29/23 14:41 [From Augmentin] Sulfa (Sulfonamide Allergy Mild Vomiting Verified 09/29/23 14:41 Antibiotics) ciprofloxacin [From Cipro] Allergy Unknown Verified 09/29/23 14:41 Exam Narrative: Exam Narrative: aaox3 normal speech not agitated normal speech +LE edema No visible rash moving ext with comamnds non distended abdomen Constitutional: Vital Signs, click to edit/add: Last Vital Signs Temp 97.7 F 10/25/23 12:22 Pulse 84 10/25/23 12:22 Resp 18 10/25/23 12:22 BP 109/73 10/25/23 12:22 Pulse Ox 96 10/25/23 12:22 O2 Del Method Room Air 10/25/23 12:22 Results Lab Results Lab results: Most recent lab results Calcium 8.5 mg/dL (8.5-10.1) 10/25/23 04:58 Magnesium 2.3 mg/dL (1.8-2.4) 10/23/23 13:13 Assessment and Plan Assessment and Plan (1) Fluid overload: (2) Hypothyroid: (3) Chronic kidney disease: Plan LEEANN on CKD 3 Hypervolemia Hypophosphatemia 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 seen via AV tele Video time 6 mins total time 33 mins patient in the hospital and I am at [facility].
--- NOTE | 2023-10-25 14:59 | SWNOTE1 ---
SW sent over updates to [facility], including physician notes and PT/OT notes. No discharge today.
--- NOTE | 2023-10-25 16:09 | SWNOTE1 ---
SW received a call from [facility] and they had a meeting and there clinical team has not decided they are not taking pt back. Frida voiced that pt is non-compliant with her dialysis and she wants until she is in fluid overload and then comes to the hospital. Frida voiced there is nothing they are able to do to help pt due to non-compliance. SW to let pt know tomorrow.
[2023-10-25] MEDS: CALCIUM ACETATE 667 MG CAPSULE 1334 MG PO (17:22)
[2023-10-25] MEDS: AMITRIPTYLINE HCL 50 MG TABLET 300 MG PO (21:06)
[2023-10-25] MEDS: PRIMIDONE 50 MG TABLET 150 MG PO (21:07)
[2023-10-26] VITALS (9 sets, daily range): BP systolic 91–102; BP diastolic 61–67; PULSE 82–104; TEMP 36.5–36.7; O2SAT 93–97
[2023-10-26] MEDS: OXYCODONE HCL/ACETAMINOPHEN 5MG/325MG 2 TAB PO ×2 (03:35→09:42)
[2023-10-26 05:26] LABS: Basophils Percent Auto 0.3 % (0.2-2.0); Eosinophils Absolute Auto 0.1 10^3/uL (0.0-0.7); Eosinophils Percent Auto 1.3 % (0.9-7.0); Hematocrit 28.2 % (36.0-48.0); Hemoglobin 8.6 g/dL (12.0-16.0); Immature Granulocytes Abs Auto 0.16 10^3/uL (0.00-0.03); Immature Granulocytes Pct Auto 1.7 % (0.0-0.5); Lymphocytes Absolute Auto 1.5 10^3/uL (1.2-3.8); Mean Corpuscular HGB Conc 30.5 g/dL (29.9-35.2); Mean Corpuscular Hemoglobin 30.5 pg (26.7-34.0); Mean Platelet Volume 9.1 fL (9.5-13.5); Monocytes Absolute Auto 0.9 10^3/uL (0.3-0.8); Monocytes Percent Auto 9.1 % (1.7-12.0); Neutrophils Absolute Auto 6.8 10^3/uL (1.4-6.5); Neutrophils Percent Auto 71.6 % (43.0-75.0); Platelet Count 327 10^3/uL (150-450); Red Blood Count 2.82 10^6/uL (4.20-5.40); Red Cell Distribution Width 14.6 % (11.0-15.0); White Blood Count 9.6 10^3/uL (4.0-11.0)
[2023-10-26] MEDS: OMEPRAZOLE 40 MG CAPSULE.DR PO (05:34)
[2023-10-26] MEDS: LEVOTHYROXINE SODIUM 100 MCG TABLET PO (05:34)
[2023-10-26 05:42] LABS: Anion Gap 15.2; BUN Creatinine Ratio 38.3; Calcium 8.3 mg/dL (8.5-10.1); Chloride 93 mmol/L (98-107); Estimated GFR (African America 27 (>=60); Estimated GFR (Non-African Ame 22 (>=60); Glucose 121 mg/dL (74-106); Potassium 4.2 mmol/L (3.5-5.1); Sodium 128 mmol/L (136-145)
[2023-10-26] MEDS: CALCIUM ACETATE 667 MG CAPSULE 1334 MG PO (08:27)
--- NOTE | 2023-10-26 08:38 | CM.NOTE ---
Rounds made with Dr. Godinez, discussed with pt change in medications at discharge regarding diuretic therapy. Pt will f/u with Dr. Godinez on Monday. Pt will discharge home with [facility].
--- NOTE | 2023-10-26 08:41 | P.DS_ITS ---
DS: Providers Provider Date of admission: 10/23/23 11:55 Primary care physician: Yuri oGdinez MD Consults: 10/23/23 12:40 Consult to Pharmacy Routine Consulting Provider: Reason for consultation: Please Union me when Med Rec is Updated Has provider been notified: No Occupational Therapy Eval and Treat Routine Reason for consultation: Only if needed for Rehab Has provider been notified: No Physical Therapy Eval and Treat Routine Reason for consultation: Eval and Treat Has provider been notified: No 10/23/23 12:59 Consult to Telenephrology Routine Reason for consultation: ckd-3, fluid overload DS: Diagnosis Discharge Diagnosis (1) Fluid overload: (2) Hypothyroid: (3) Chronic kidney disease: Plan Findings on admission: Patient with significant fluid overload, 18 pounds up from previous weight and this is despite tripling of her diuretics. Continue to get good diuresis, total out is 9.8 L. Not quite as much yesterday. Creatinine that was improved from admission. Would overload improving at the time of discharge Edema lower extremities-likely secondary to above-no DVT-slowly improving at the time of discharge Hyponatremia-down somewhat today. Deteriorated at discharge but will follow as an outpatient Hypothyroidism-continue with current dosing has had recent labs and normal stable Chronic kidney disease stage III- - deteriorated at the time of discharge but will follow as an outpatient Anemia of chronic kidney disease and iron deficiency. Improved somewhat at discharge Cervical and lumbar radiculopathy-continue with current medications. Stable Insomnia-continue with home medications Generalized pruritus-improved at the time of discharge GERD-continue with home medications Admission status: Patient has failed outpatient treatment with oral diuretics, she failed observation treatment with 1 round of Bumex drip last admission, patient will likely need 3 to 4-day stay for IV diuresis. Consult to telemetry nephrology. Medically necessary treatment will span 2 midnights. Maintain inpatient status. At least 1 more day of admission and possibly 2 based on effective dose of IV Bumex ? ? DS: Summary Hospital Course Hospital Course: Patient was readmitted to the hospital with fluid overload after failed outpatie nt treatment with aggressive increase in her oral diuretics, she was up to 6 mg of Bumex a day and 200 mg of Aldactone without significant benefit in her peripheral edema. Infected and progressed to the point that her weight was up significantly. 20 pounds. She was placed in the hospital inpatient status, placed on Bumex drip for 3 consecutive days. Her creatinine improved the first 2 days. It is up somewhat today. Higher than her baseline of 1.8. She is up to 2.2 today. She is ambulating better with the significant weight loss. She diuresed 14.[address] Will place patient back on her home regiment, hopefully this will maintain things and get her into lymphedema therapy. Continue to follow-up with nephrology. See me in the office in 4 days. Medications see list. Time Spent with Patient Time attestation: Total time spent providing and/or coordinating discharge services: Exam Constitutional Vital Signs, click to edit/add: Last Vital Signs Temp 97.7 F 10/26/23 03:37 Pulse 89 10/26/23 08:00 Resp 20 10/26/23 03:37 BP 102/67 10/26/23 03:37 Pulse Ox 96 05/02/24 04:58 O2 Del Method Room Air 10/26/23 04:58 Documenting provider has reviewed patient's vital signs: yes Common normals: no apparent distress Chest Common normals: inspection of chest normal Respiratory Common normals: normal respiratory effort, no retractions and clear to auscultation bilaterally Cardio Common normals: regular rate, regular rhythm and no murmurs Extremity Common normals: abnormal to inspection (2 - 3+ edema - better from admission and at her baseline) DS: Data Data Completed and Pending Labs on day of discharge: Labs from last 24 hours 10/26/23 05:11 WBC 9.6 RBC 2.82 L Hgb 8.6 L Hct 28.2 L MCV 100.0 H MCH 30.5 MCHC 30.5 RDW 14.6 Plt Count 327 MPV 9.1 L Neut % (Auto) 71.6 Lymph % (Auto) 16.0 L [place] % (Auto) 9.1 Eos % (Auto) 1.3 Baso % (Auto) 0.3 Neut # (Auto) 6.8 H Lymph # (Auto) 1.5 [place] # (Auto) 0.9 H Eos # (Auto) 0.1 Baso # (Auto) 0.0 Abs Immat Gran (auto) 0.16 H Imm/Tot Granulo (auto) 1.7 H Sodium 128 L Potassium 4.2 Chloride 93 L Carbon Dioxide 24.0 Anion Gap 15.2 BUN 85.0 H* Creatinine 2.22 H Est GFR ( Amer) 27 L Est GFR (Non-Af Amer) 22 L BUN/Creatinine Ratio 38.3 Glucose 121 H Calcium 8.3 L Discharge Plan Discharge Disposition: Home, Self-Care Discharge Medications: New Entresto 24-26 mg Tablet 4 tab PO BID Qty: 30 0RF Continued aripiprazole [Abilify] 2 mg tablet 2 mg PO DAILY bumetanide 1 mg tablet 1 mg PO TID PRN (Reason: SWELLING) Hold Instructions: Resume on 02/16/23. until cleared by PCP spironolactone [Aldactone] 50 mg tablet 50 mg PO DAILY PRN (Reason: swelling) butorphanol 10 mg/mL spray,non-aerosol 1 spray INTRANASAL .QD PRN (Reason: pain) Eliquis 2.5 mg tablet 2.5 mg PO BID pregabalin [Lyrica] 50 mg capsule 50 mg PO BID Qty: 60 2RF desvenlafaxine succinate 50 mg tablet extended release 24 hr 50 mg PO DAILY diclofenac sodium 1 % gel 2 g TOPICAL .QD PRN (Reason: PAIN/INFLAMMATION) doxepin 10 mg capsule 10 mg PO BID escitalopram oxalate 20 mg tablet 20 mg PO DAILY pantoprazole 40 mg tablet,delayed release (DR/EC) 40 mg PO DAILY azelastine 0.05 % drops 1 drp OPHTHALMIC (EYE) DAILY fentanyl 100 mcg/hr patch 72 hour 1 patch transdermal Q72H liothyronine 25 mcg tablet 25 mcg PO .qd pramipexole 1 mg tablet 1 mg PO .qd spironolactone 100 mg tablet 100 mg PO BID alprazolam 0.5 mg tablet 0.5 mg PO BID PRN (Reason: anxiety) amitriptyline 150 mg tablet 300 mg PO BEDTIME calcium acetate(phosphat bind) 667 mg capsule 667 mg PO BID levothyroxine 100 mcg tablet 100 mcg PO DAILY Linzess 290 mcg capsule 290 mcg PO DAILY Hold Instructions: Resume on 02/16/23. until diarrhea resolves primidone 50 mg tablet 150 mg PO BEDTIME tizanidine [Zanaflex] 4 mg tablet 4 mg PO Q6H PRN (Reason: muscle spasticity) oxycodone-acetaminophen 5-325 mg tablet 2 tab PO Q6H PRN (Reason: pain) Discontinued Entresto 49-51 mg tablet 1 tab PO BID Qty: 60 11RF Print Language: Finnish Railway Engineer/Electrical Equipment Tester Instructions: Resume [facility] at discharge. Phone number is [phone] Forms: Portal Instructions Follow Up Appointments: October 29 @ 11:30am with Dr. Godinez [phone]
[2023-10-26] MEDS: DOXEPIN HCL 10 MG CAPSULE PO (09:42)
[2023-10-26] MEDS: APIXABAN 5 MG TABLET 2.5 MG PO (09:42)
[2023-10-26] MEDS: ESCITALOPRAM 10 MG TABLET 20 MG PO (09:42)
[2023-10-26] MEDS: PREGABALIN 50 MG CAPSULE PO (09:43)
[2023-10-26] MEDS: DESVENLAFAXINE SUCCINATE 50 MG TAB.ER.24H PO (09:43)
[2023-10-26] MEDS: TIZANIDINE HCL 4 MG TABLET PO (09:43)
[2023-10-26] MEDS: SACUBITRIL/VALSARTAN 24 MG-26 MG TABLET 4 TAB PO (09:43)
[2023-10-26] MEDS: ARIPIPRAZOLE 2 MG TABLET PO (09:43)
--- NOTE | 2023-10-26 10:06 | SWNOTE1 ---
SW updated patient that [facility] is not able to accept her back. Pt would like SW to try [facility]. SW sent referral to [facility].
[2023-10-26] MEDS: HEPARIN SODIUM (PORCINE) PF LOCK FLUSH 500 UNIT/5 ML SYRINGE IV (11:03)
--- NOTE | 2023-10-26 13:26 | SWNOTE1 ---
[facility] is not able to accept.
--- NOTE | 2023-10-26 13:29 | SWNOTE1 ---
PILAR called and spoke with pt and she would like SW to continue trying any company. PILAR sent referral to [facility].
--- NOTE | 2023-10-26 14:28 | SWNOTE1 ---
SW sent referral to [facility], they are not in network. SW sent referral to [address]
--- NOTE | 2023-10-26 16:26 | SWNOTE1 ---
[facility] is able to accept. SW placed CRF on chart and CRF sent to [facility]. SW called pt and she has already spoken to [facility].
--- NOTE | 2023-10-27 14:53 | CM.DCFOLLOWU ---
Person spoke with: Mabel How are you feeling? Better How is your pain? No pain Did you understand your discharge instructions? Yes Do you have any questions about your discharge instructions? No Were you given any prescriptions at discharge? Yes Were you able to get your prescriptions filled? Yes Do you understand how to take your medications as ordered? Yes Do you have any questions about your follow up appointment and do you plan to keep your follow up appointment? It's Monday and yes I will go to appt. Is there anything else that you would like to discuss? No Questions/Comments/Concerns/Other:
== END 2023-10-26 12:34 | disposition home or self-care (01) | DRG 641 ==
PROVIDERS: Admitting Provider Family Medicine; PCP Family Medicine; Visit Provider Family Medicine
DX: E87.70 Fluid overload, unspecified (principal); N17.9 Acute kidney failure, unspecified; I50.32 Chronic diastolic (congestive) heart failure; I13.0 Hypertensive heart and chronic kidney disease with heart failure and stage 1 through stage 4 chronic kidney disease, or unspecified chronic kidney disease; E87.1 Hypo-osmolality and hyponatremia; E03.9 Hypothyroidism, unspecified; N18.30 Chronic kidney disease, stage 3 unspecified; M54.12 Radiculopathy, cervical region; M47.26 Other spondylosis with radiculopathy, lumbar region; K21.9 Gastro-esophageal reflux disease without esophagitis; E83.39 Other disorders of phosphorus metabolism; G47.00 Insomnia, unspecified; J44.9 Chronic obstructive pulmonary disease, unspecified; F32.A Depression, unspecified; D50.9 Iron deficiency anemia, unspecified; D63.1 Anemia in chronic kidney disease; F41.9 Anxiety disorder, unspecified; L29.9 Pruritus, unspecified; Z79.899 Other long term (current) drug therapy; Z79.01 Long term (current) use of anticoagulants; Z79.890 Hormone replacement therapy; Z90.49 Acquired absence of other specified parts of digestive tract; Z96.651 Presence of right artificial knee joint; Z98.890 Other specified postprocedural states; Z98.84 Bariatric surgery status; Z90.710 Acquired absence of both cervix and uterus; I25.2 Old myocardial infarction; Z86.73 Personal history of transient ischemic attack (TIA), and cerebral infarction without residual deficits
CPT/HCPCS: 36415; 36591; 72131; 80048; 80053; 81003; 83735; 83880; 83930; 85025; 85652; 93970; 94761; 96365; 96366; 96375; 96376; 97140; 97161; 97165; G0328; J1170; Q3014

== ENCOUNTER 2023-11-02 14:37 | Outpatient (OUT) | payer MEDICARE, MEDICAID, SELFPAY ==
--- NOTE | 2023-11-02 16:00 | PM.CN ---
Consult Note: HPI Data of Consult Patient: known to practice within the last 3 years Requesting Physician: Louann Jackson NP Primary Care Provider: Yuri Godinez MD Consult Narrative Reason for consult: f/u Narrative: Mabel Moser a pleasant 63 year old female presents for evaluation and management of chronic pain. Today pain 7-8/10 in right hip, groin, buttocks, and low back. Patient reports >50% improvement from recent lumbar ROBSON with Dr David greater than 3 months and would like to repeat injection. Patient continues to have numbness tingling to BLE. Patient currently dealing with kidney issues and severe bilateral leg edema, following with PCP and nephrology. Patient is being managed with medications for pain by PCP. Recent hospitalizations, continues to have symptoms of fluid overload, getting weekly labs done. Unfortunately patient suffered a fall and cervical Dens Fx, now wearing c-collar and following with Dr Vann cc:: CC: Louann Jackson NP Review of Systems ROS Status of ROS 10 or more systems reviewed and unremarkable except as noted in history and below Musculoskeletal Reports: back pain, extremity pain and extremity swelling PFSH PFS Medical History (Updated 11/02/23 @ 16:03 by Louann Jackson NP) Chronic kidney disease ?N18.9 - Chronic kidney disease, unspecified (ICD-10) Acute kidney injury ?N17.9 - Acute kidney failure, unspecified (ICD-10) Edema of lower leg due to peripheral venous insufficiency ?I87.2 - Venous insufficiency (chronic) (peripheral) (ICD-10) ?R60.0 - Localized edema (ICD-10) Depression ?F32.A - Depression, unspecified (ICD-10) Gastroenteritis ?K52.9 - Noninfective gastroenteritis and colitis, unspecified (ICD-10) Migraine without aura and without status migrainosus, not intractable ?G43.009 - Migraine without aura, not intractable, without status migrainosus (ICD-10) Chronic heart failure with preserved ejection fraction (HFpEF) ?I50.32 - Chronic diastolic (congestive) heart failure (ICD-10) Chest pain ?R07.9 - Chest pain, unspecified (ICD-10) Dyspnea ?R06.00 - Dyspnea, unspecified (ICD-10) Fluid overload ?E87.70 - Fluid overload, unspecified (ICD-10) Osteoarthritis ?M19.90 - Unspecified osteoarthritis, unspecified site (ICD-10) Anemia ?D64.9 - Anemia, unspecified (ICD-10) Anxiety ?F41.9 - Anxiety disorder, unspecified (ICD-10) Stroke ?I63.9 - Cerebral infarction, unspecified (ICD-10) Acid reflux ?K21.9 - Gastro-esophageal reflux disease without esophagitis (ICD-10) Hypothyroid ?E03.9 - Hypothyroidism, unspecified (ICD-10) Kidney failure ?N19 - Unspecified kidney failure (ICD-10) COPD (chronic obstructive pulmonary disease) ?J44.9 - Chronic obstructive pulmonary disease, unspecified (ICD-10) Asthma ?J45.909 - Unspecified asthma, uncomplicated (ICD-10) CHF (congestive heart failure) ?I50.9 - Heart failure, unspecified (ICD-10) Irregular heart beat ?I49.9 - Cardiac arrhythmia, unspecified (ICD-10) HTN (hypertension) ?I10 - Essential (primary) hypertension (ICD-10) Heart attack ?I21.9 - Acute myocardial infarction, unspecified (ICD-10) Lumbar spondylosis ?M47.816 - Spondylosis without myelopathy or radiculopathy, lumbar region (ICD-10) Surgical History H/O hysterectomy with oophorectomy H/O gastric bypass ?Z98.84 - Bariatric surgery status (ICD-10) History of hernia repair ?Z98.890 - Other specified postprocedural states (ICD-10) ?Z87.19 - Personal history of other diseases of the digestive system (ICD-10) History of rotator cuff surgery ?Z98.890 - Other specified postprocedural states (ICD-10) History of right knee joint replacement ?Z96.651 - Presence of right artificial knee joint (ICD-10) History of appendectomy ?Z90.49 - Acquired absence of other specified parts of digestive tract (ICD-10) Hx of cholecystectomy ?Z90.49 - Acquired absence of other specified parts of digestive tract (ICD-10) Family History Father Family history of CHF (congestive heart failure) Family history of diabetes mellitus Family history of hypertension Family history of myocardial infarction Family history of stroke Mother Family history of CHF (congestive heart failure) Family history of COPD (chronic obstructive pulmonary disease) Family history of diabetes mellitus Family history of hypertension Family history of myocardial infarction Family history of stroke Social History Within the past year, how often did you have a drink containing alcohol: never Within the past year, how often did you have six or more drinks on one occasion: never Score interpretation: A score less than 3 is consistent with normal alcohol consumption. 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 Highest level of school completed/degree received: some college, no degree Are you now , , , , never or living with a partner: In a typical week, how many times do you talk on the telephone with family, friends, or neighbors: 3 or more times per week How often do you get together with friends or relatives: twice per week How often do you attend catholic or voodoo services: 4 or more times per year Do you belong to any clubs or organizations such as catholic groups unions, [employer] or athletic groups, or school groups: no Total score: 3 Score interpretation: A score of greater than or equal to 2 indicates the lowest level of social isolation. Little interest or pleasure in doing things: not at all Feeling down, depressed, or hopeless: several days Feel stressed/tense/nervous/anxious/difficulty sleeping: to some extent Life stressors: recent of family or friend Do you think of yourself as: straight/heterosexual Gender Identity: female Meds Home Medications and Allergies Home Medications ?Medication ?Instructions ?Recorded ?Confirmed ?Type alprazolam 0.5 mg tablet 0.5 mg PO BID PRN anxiety 12/08/22 10/23/23 History amitriptyline 150 mg tablet 300 mg PO BEDTIME 12/08/22 10/23/23 History calcium acetate(phosphat bind) 667 667 mg PO BID 12/08/22 10/23/23 History mg capsule levothyroxine 100 mcg tablet 100 mcg PO DAILY 12/08/22 10/23/23 History linaclotide 290 mcg capsule 290 mcg PO DAILY 12/08/22 10/23/23 History (Linzess) oxycodone-acetaminophen 5 mg-325 2 tab PO Q6H PRN pain 12/08/22 10/23/23 History mg tablet primidone 50 mg tablet 150 mg PO BEDTIME 12/08/22 10/23/23 History tizanidine 4 mg tablet (Zanaflex) 4 mg PO Q6H PRN muscle spasticity 12/08/22 10/23/23 History aripiprazole 2 mg tablet (Abilify) 2 mg PO DAILY 01/23/23 10/23/23 History bumetanide 1 mg tablet 1 mg PO TID PRN SWELLING 01/23/23 10/23/23 History spironolactone 50 mg tablet 50 mg PO DAILY PRN swelling 01/24/23 10/23/23 History (Aldactone) butorphanol 10 mg/mL nasal spray 1 spray intranasal .QD PRN pain 02/03/23 10/23/23 History apixaban 2.5 mg tablet (Eliquis) 2.5 mg PO BID 07/20/23 10/23/23 History pregabalin 50 mg capsule (Lyrica) 50 mg PO BID #60 caps 07/22/23 10/23/23 Rx azelastine 0.05 % eye drops 1 drp ophthalmic (eye) DAILY 09/29/23 10/23/23 History desvenlafaxine succinate 50 mg 50 mg PO DAILY 09/29/23 10/23/23 History tablet,extended release 24 hr diclofenac sodium 1 % topical gel 2 g topical .QD PRN 09/29/23 10/23/23 History PAIN/INFLAMMATION doxepin 10 mg capsule 10 mg PO BID 09/29/23 10/23/23 History escitalopram oxalate 20 mg tablet 20 mg PO DAILY 09/29/23 10/23/23 History pantoprazole 40 mg tablet,delayed 40 mg PO DAILY 09/29/23 10/23/23 History release fentanyl 100 mcg/hr transdermal 1 patch transdermal Q72H 10/12/23 10/23/23 History patch liothyronine 25 mcg tablet 25 mcg PO .qd 10/23/23 10/23/23 History pramipexole 1 mg tablet 1 mg PO .qd 10/23/23 10/23/23 History spironolactone 100 mg tablet 100 mg PO BID 10/23/23 10/23/23 History sacubitril 24 mg-valsartan 26 mg 4 tab PO BID #30 tabs 10/26/23 Rx tablet (Entresto) Allergies Allergy/AdvReac Type Severity Reaction Status Date / Time povidone-iodine Allergy Intermediate Verified 09/29/23 14:41 [From Betadine] amoxicillin [From Augmentin] Allergy Mild Vomiting Verified 09/29/23 14:41 clavulanic acid Allergy Mild Vomiting Verified 09/29/23 14:41 [From Augmentin] Sulfa (Sulfonamide Allergy Mild Vomiting Verified 09/29/23 14:41 Antibiotics) ciprofloxacin [From Cipro] Allergy Unknown Verified 09/29/23 14:41 Exam Constitutional Documenting provider has reviewed patient's vital signs: yes Common normals: no apparent distress, oriented x3, healthy appearing, alert and well nourished General appearance: cooperative HENMT Common normals: normocephalic, hearing grossly normal bilaterally and moist oral mucous membranes Head and scalp: normocephalic Eye Common normals: PERRL Pupil: PERRL Neck & C-Spine Other: c-collar unable to assess Chest Common normals: inspection of chest normal Respiratory Common normals: normal respiratory effort, no retractions and no use of accessory muscles Back & Pelvis Lumbar spine/lower back: lumbar ROM normal, ROM limited and straight leg raise negative bilaterally Extremity General: edema Neuro Common normals: oriented x3, CN's II-XII intact bilaterally, moves all extremities, no focal motor deficits, no sensory deficits noted and deep tendon reflexes 2+ bilaterally Sensorium/orientation: alert Gait (neuro): assistive device used walker Motor exam: no movement abnormalities noted and strength abnormal (4/5 in BLE) Psych Common normals: mental status grossly normal, thought process normal, cooperative, affect normal, speech normal and activity/motor behavior normal Speech: normal speech Thought process: normal thought process Results Additional Findings Additional findings: If on a controlled substance or opioids, I have checked an [place]AR[place] report on this patient and there are no aberrancies noted in the prescribing history.??If on a controlled substance or opioid a drug screen was completed and reviewed within the last year, and if there has not been a drug screen completed we ordered one today to monitor higher risk, state monitored pain medication use. As part of providing excellent, safe, comprehensive care, the following was completed at our patient's visit: 1. A medication reconciliation and review to ensure accurate knowledge of current/active medications, including asking our patients to inform us about any [id number] medications or herbal remedies/nutritional supplements/alternative remedies. 2. A review to specifically ensure our patients have had annual screening for screening for depression, screening for tobacco use, and screening for unhealthy alcohol use. For concerning screenings had a discussion with the patient, provided patient education, and recommended follow-up with primary care provider when appropriate. If patient noted with a risk of falling, they received education on strength, gait, and balance training to prevent future risk of falling. Assessment and Plan Assessment and Plan (1) Lumbar radiculopathy: (2) Lumbar stenosis with neurogenic claudication: Plan Dr David to review labs and comorbidities and evaluate if a repeat lumbar ROBSON is appropriate continue f/u with orthospine, neprhology, PCP
== END 2023-11-02 14:38 | disposition home or self-care (01) ==
LOC: PM 14:38
PROVIDERS: PCP Family Medicine; Visit Provider Nurse Practitioner
DX: M54.16 Radiculopathy, lumbar region (principal); M48.062 Spinal stenosis, lumbar region with neurogenic claudication
CPT/HCPCS: G0463

== ENCOUNTER 2023-11-03 10:10 | Outpatient (OUT) | payer MEDICARE, MEDICAID, SELFPAY ==
--- NOTE | 2023-11-03 10:13 | MR_ITS ---
The [address] [address] Patient Name: JOSE CLEMENTS MRN: [facility]:[id number] date: 1960 Sex: F Assigned Patient Location: MRI Current Patient Location: MRI Accession/Order Number: [id number] Exam Date: 11/03/2023 10:30 Report Date: 11/03/2023 12:02 At the request of: LILLY OSORIO Procedure: MR cervical spine wo con MR cervical spine wo con, 11/03/2023 10:30 AM EDT INDICATION: Cervical Myelopathy G95.9 COMPARISON: Prior CT of cervical spine dated 09/29/2023 TECHNIQUE: Multiplanar, multisequential MRI images of cervical spine were obtained with without contrast. FINDINGS: There is normal physiologic cervical lordosis. The vertebral heights are relatively preserved. The cervicomedullary junction is unremarkable. No definite signal abnormality within the spinal cord is noted. There are mild disc osteophyte complex associated with uncovertebral joint arthrosis from C3 to T1. No significant neuroforaminal narrowing or canal stenosis at the level of C2-C3 is noted. At the level of C3-C4, there is no neuroforaminal narrowing and no canal stenosis. At the level of C4-C5, there is mild bilateral neuroforaminal narrowing and no canal stenosis. At the level of C5-C6, there is no neuroforaminal narrowing and no canal stenosis. At the level of C6-C7, there is moderate right and mild left neuroforaminal narrowing and mild canal stenosis. Level of C7-T1 , no significant neuroforaminal narrowing or canal stenosis is noted. There is a meningeal cyst at origin of the left C8 measuring 1 cm. No definite muscular or ligamentous injury is noted. MR/MR cervical spine wo con IMPRESSION: Mild degenerative changes of the cervical spine in particular at C6-C7. Electronically authenticated by: NGOC HENRY Date: 11/03/2023 12:02
== END 2023-11-03 10:11 | disposition home or self-care (01) ==
LOC: MRI 10:10
PROVIDERS: PCP Family Medicine; Visit Provider Orthopaedic Surgery Orthopaedic Surgery of the Spine
DX: D64.9 Anemia, unspecified (principal); I10 Essential (primary) hypertension; E87.1 Hypo-osmolality and hyponatremia; G95.9 Disease of spinal cord, unspecified; M50.30 Other cervical disc degeneration, unspecified cervical region
CPT/HCPCS: 36415; 36591; 72141; 80053; 83930; 85025

== ENCOUNTER 2023-11-11 04:32 | Emergency (ER) | payer MEDICARE, MEDICAID, SELFPAY ==
[2023-11-11] VITALS (24 sets, daily range): BP systolic 84–127; BP diastolic 48–79; PULSE 72–78; TEMP 36.3; O2SAT 97–100; BMI 36.6
--- OUTSIDE RECORDS SUMMARY | 2023-11-11 04:43 | XMS_ITS | CCD ---
Author Organization [facility] Care Team Providers Care Telephone Diaphragm Assembler Name Role Phone NIRMAL LEWIS Admitting Unavailable NIRMAL LEWIS Attending Unavailable ANGLE SANTANA Primary Care Unavailable NIRMAL LEWIS Admitting Unavailable NIRMAL LEWIS Attending Unavailable ANGLE SANTANA M Primary Care Unavailable [place] Unavailable CARLOS [...] Primary Care Unavailable MIGEL APARICIO Consulting Unavailable STRAWALEX, JODY Consulting Unavailable DANICA ALEJO Consulting Unavailable CARLOS THOMPSON Consulting Unavailable DIAB ., NIKKIE Consulting Unavailable HOY ., DR BARBOUR Primary Care Unavailable MARKER ., DR JURADO Attending Unavailable MARKER ., DR JURADO Admolena Unavailable MARKER ., DR JURADO Consulting Unavailable AHDOOT, JITENDRA Consulting Unavailable JUDAH CHARLES Consulting Unavailable ALDO MOORE Consulting Unavailable HOY ., DR BARBOUR Admolena Unavailable HOY ., DR BARBOUR Primary Care Unavailable HOY ., DR BARBOUR Consulting Unavailable HOY ., DR BARBOUR Attending Unavailable PAY ., DR HUNTER Consulting Unavailable MELVINJUDAH QUINTERO Consulting Unavailable Barnes, David Consulting Unavailable HOY [...] Unavailable HOY ., DR BARBOUR Attending Unavailable LISAZANDRA Attending Unavailable ZANDRA GONZALEZ Admitting Unavailable HOY [...] ., NARENDANDRZEJATH Attending Yumiko vailable LAKSHMIPATHY ., SADIE Admitting Yumiko vailable HOY ., DR BARBOUR [...] HARP ., DR ANIKA Sanchez Attending Unavailable AGBRIAN JI Consulting Unavailable HOY ., DR BARBOUR Primary [...] ., NARENDRANATH Admitting Yumiko vailable LAKSHMIPATHY ., NARCHERRIE Consulting Yumiko vailable HOY ., DR BARBOUR [...] HOY ., DR BARBOUR Consulting Unavailable VITALEAPRIL Consulting Unavailable HOY ., DR BARBOUR Consulting [...] Admit Provider DO Jim Randhawa Attending Provider [phone] MD [place] Other Provider Jim Randhwaa Attending Unavailable Beatriz Oh Admitting Unavailable [place] Consulting Unavailable Angle Santana Primary Care Unavailable Favian Helm Admitting Unavailable Favian Helm Attending Unavailable Angle Santana Primary Care Unavailable STEPHANIE COOPER Referring Unavailable SHERLY ROSADO Attending Unavailable ALONZOSHERLY Referring Unavailable GANGWANI, RAYRAY HARP Referring Unavailab le BARAZI, MACIE Attending Unavailable MOUKARBEL, BENJIE Attending Unavailable LISAZANDRA Attending Unavailable JOANA, RHIANNON Attending Unavailable MOUKARBEL, BENJIE Attending Unavailable SONNY, DUNCAN Attending Unavailable ALONZOSHERLY Referring Unavailable MOUKARBEL, BENJIE Attending Unavailable PIRKL, RACHEL Referring Unavailable JOANA, RHIANNON Attending Unavailable ALGHOTHANI, STEPHANIE Referring Unavailable GANGWANI, RAYRAY HARP Referring Unavailab le MOUKARBEL, BENJIE Admitting Unavailable MOUKARBEL, BENJIE Attending Unavailable GANGWANI, RAYRAY HARP Referring Unavailab le HOY, ANGLE Referring Unavailable GANGWANI, RAYRAY HARP Attending Unavailab le YNES, RADHA Admitting Unavailable GANGWANI, RAYRAY HARP Consulting Unavailab le ZENZ, JUDAH Referring Unavailable PAYBALJINDER Referring Unavailable HOY, ANGLE M Primary Care Unavailable ARMAND ACUNA Consulting Unavailable LOUKA, MERE Attending Unavailable LOUKA, MERE Admitting Unavailable HOY, ANGLE M Referring Unavailable HOY, ANGLE M Primary Care Unavailable Allergies Allergy Classification Reported Allergen(s) Allergy Type Date of Onset Reaction(s) Facility (11 sources) Amoxicillin Drug Allergy 10-29-19 23 Unknown, [facility] (5 sources) Amoxicillin / Clavulanate Drug Allergy Unknown [facility] Other (13 sources) Povidone-Iodine; Translations: [POVIDONE-IODINE] Drug Allergy 08-15-19 17 Unknown, [facility] (9 sources) Sulfamethoxazole / Trimethoprim Drug Allergy Unknown [facility] Other (1 source) sulfaSALAzine Drug Allergy Unknown [facility] Other (7 sources) Amoxicillin / Clavulanate Drug Allergy 11-26-19 13 Unknown [facility] (1 source) Bumetanide Drug Allergy 03-22-20 16 [facility] (1 source) Cephalexin Drug Allergy 01-15-20 14 [facility] (2 sources) gabapentin; Translations: [GABAPENTIN] Drug Allergy 08-19-19 22 [facility] (3 sources) Povidone-Iodine Drug Allergy 11-26-19 13 [facility] (1 source) pregabalin; Translations: [LYRICA] Drug Allergy 08-19-19 22 [facility] (7 sources) Sulfonamides (Antibiotic); Translations: [SULFA (SULFONAMIDE ANTIBIOTICS)] Drug allergy (disorder) 11-26-19 13 Rash [facility] (1 source) Sulfonamide Drug allergy Unknown [facility] Other (7 sources) Substance with sulfonamide structure and antibacterial mechanism of action (substance) Drug allergy Unknown [facility] Other (3 sources) Clavulanate; Translations: [clavulanic acid] Drug Allergy 10-29-19 23 [facility] (1 source) Ciprofloxacin Drug Allergy 05-26-20 [facility] (1 source) Amoxicillin Drug Allergy 04-04-20 23 [facility] (1 source) Povidone-Iodine Drug Allergy 04-04-20 23 [facility] (1 source) Sulfamethoxazole Drug Allergy 04-04-20 23 [facility] (1 source) Sulfonamides (Antibiotic) Drug allergy (disorder) 04-04-20 23 [facility] (1 source) Trimethoprim Drug Allergy 04-04-20 23 [facility] (1 source) Cephalexin; Translations: [CEPHALEXIN] Drug Allergy 06-13-20 14 [facility] (1 source) Ciprofloxacin; Translations: [CIPROFLOXACIN] Drug Allergy 10-11-19 23 [facility] (1 source) Iodine; Translations: [IODINE] Drug Allergy 11-28-19 23 [facility] (1 source) pregabalin; Translations: [PREGABALIN] Drug Allergy 10-11-19 23 [facility] (1 source) Sulfamethoxazole / Trimethoprim; Translations: [SULFAMETHOXAZOLE-T RIMETHOPRIM] Drug Allergy 11-28-19 23 [facility] (2 sources) AMOXICILLIN-POT CLAVULANATE; Translations: [AMOXICILLIN-POT CLAVULANATE] Propensity to adverse reactions to drug (disorder) 06-13-20 [facility] Medications Current Medications Medication Drug [...] 27, 2022 11:00pm take 1 capsule [address] [facility] every twelve hours DULoxetine HCl 60 MG [...] Start: 10-28-2022 take 1 capsule by mo [facility] once daily Linaclotide (Linzess) 290 mcg capsule [...] 2018 12:00am take 1 tablet by joseph once daily as needed Ondansetron 4 MG [...] 2018 6:59am take 2 tablets by mo [facility] every [...] Start: 08-31-2018 take 2 tablets by mo [facility] every four to six hours Oxycodone-Acetaminophen (Percocet) 5-325 mg Tablet Active 2 TAB PO EVERY 4-6 HOURS August 31, 2018 1:00am take 2 tablets by mo [facility] every four hours as needed oxyCODONE-Acetaminophen 5-325 MG 2 table t as needed Orally every 4 hrs PRN Active [id number] actuat albuterol 0.09 mg/actuat metered dose [...] meals Orally Four times a day Active Qz-Ozzdsdt-Udr-Iron Fm-Fa-Vitk (Multi For Her) 18 mg iron-600 mcg-80 mcg Tablet (2 sources) Start: 08-31-2018 End: 06-30-2023 take 1 tablet by mouth once daily Or-Gojnnlf-Knv-Iron Fm-Fa-Vitk (Multi For Her) 18 mg iron-600 mcg-80 mcg Tablet Discontinued 1 TAB PO Daily August 31, 2018 12:00am June 30, 2023 12:26am Start: 08-31-2018 take 1 tablet by joseph th once daily Lc-Cgghult-Cnf-Iron Fm-Fa-Vitk (Multi For Her) 18 mg iron-600 [...] disease (3 sources) Atherosclerotic heart disease of [place] coronary artery without angina pectoris; Translations: [ASHD [place] W/O ANGINA PECTORIS] Onset: 3 Chronic [...] medical drugs (1 source) Adverse effect of zyuyaigcoxn-pngkskhlyt-u nzyme inhibitors, initial encounter; Translations: [ADVERSE EFFECT [...] aftercare (2 sources) Polypharmacy ; Translations: [Other [employer] (current) drug therapy] 09-04-2018 Episodic Other aftercare (1 source) Other [facility] (current) drug therapy; Translations: [OTH CAR PRE COOLER 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 THERAPY] Onset: 3 Episodic Other [...] sources) Hypoglycemia; Translations: [Hypoglycemia, unspecified] Chronic Other fractures (1 source) Unspecified displaced fracture of second cervical vertebra, initial encounter for closed fracture; Translations: [Unspecified displaced fracture of second cervical vertebra, initial encounter for closed fracture] Onset: 4 Episodic Other gastrointestinal disorders (9 sources) Diarrhea; Translations: [...] unspecified; Translations: [EDEMA UNSPECIFIED] Onset: 3 Episodic Residual codes; unclassified (1 source) Pain, unspecified; Translations: [Pain, unspecified] Onset: 4 Episodic Spondylosis; intervertebral disc disorders; other back [...] Test Name Value Interpretation Reference Range Facility Basic Metab w/rfx MGon 09-30 Anion gap [Moles/Vol] 8 mmol/L Low 9-16 [facility] Comment on above: Performed By: #### C DP, BMPX #### [facility] [address] [place] [address] Orthopedic Radiologic Technologist: Michael Chen MD Calcium [Mass/Vol] 8.1 mg/dL Low 8.6-10.4 [facility] Comment on above: Performed By: #### C DP, BMPX #### [facility] [employer] [address] [place] [address] Orthopedic Radiologic Technologist: Michael Chen MD Chloride [Moles/Vol] 101 mmol/L Normal 98-107 [facility] Comment on above: Performed By: #### C DP, BMPX #### [facility] [address] [place] [address] Orthopedic Radiologic Technologist: Michael Chen MD CO2 [Moles/Vol] 23 mmol/L Normal 20-31 [facility] Comment on above: Performed By: #### C DP, BMPX #### [facility] [address] [place] [address] Orthopedic Radiologic Technologist: Michael Chen MD Creatinine [Mass/Vol] 1.5 mg/dL High 0.50-0.90 [facility] Comment on above: Performed By: #### C DP, BMPX #### [facility] [address] [place] [address] Orthopedic Radiologic Technologist: Michael Chen MD GFR/1.73 sq M.predicted among non-blacks MDRD (S/P/Bld) [Vol rate/Area] 39 mL/min/{1.73_m2} Low >60 [facility] Comment on above: Result Comment: These results are not intended for use in patients <18 years of age. eGFR results are calculated without a race factor using the 2020 CKD-EPI equation. Careful clinical correlation is recommended, particularly when comparing to results calculated using previous equations. The CKD-EPI equation is less accurate in patients with extremes of muscle mass, extra-renal metabolism of creatine, excessive creatine ingestion, or following therapy that affects renal tubular secretion. Performed By: #### C DP, BMPX #### [facility] [employer] [address] [place] [address] Orthopedic Radiologic Technologist: Michael Chen MD Glucose [Mass/Vol] 100 mg/dL High 74-99 [facility] Comment on above: Performed By: #### C DP, BMPX #### [facility] [employer] [address] [place] [address] Orthopedic Radiologic Technologist: Michael Chen MD Potassium [Moles/Vol] 4.4 mmol/L Normal 3.7-5.3 [facility] Comment on above: Performed By: #### C DP, BMPX #### [facility] [employer] [address] [place] [address] Orthopedic Radiologic Technologist: Micahel Chen MD Sodium [Moles/Vol] 132 mmol/L Low 136-145 [facility] Comment on above: Performed By: #### C DP, BMPX #### [facility] [employer] [address] [place] [address] Orthopedic Radiologic Technologist: Michael Chen MD Urea nitrogen [Mass/Vol] 56 mg/dL High 8-23 [facility] Comment on above: Performed By: #### C DP, BMPX #### [facility] [employer] [address] [place] [address] Orthopedic Radiologic Technologist: Michael Chen MD CBC with Diffon 10-01-2023 Abs. Basophil 0.03 k/uL Normal 0.00-0.20 [facility] Comment on above: Performed By: #### C DP, BMPX #### [facility] [address] [place] [address] Orthopedic Radiologic Technologist: Michael Chen MD Abs.Imm.Granulocyte 0.05 k/uL Normal 0.00-0.30 [facility] Comment on above: Performed By: #### C DP, BMPX #### [address] [address] Orthopedic Radiologic Technologist: Michael Chen MD Abs.Neutrophil (Seg) 6.55 k/uL Normal 1.50-8.10 [facility] Comment on above: Performed By: #### C DP, BMPX #### [address] [address] Orthopedic Radiologic Technologist: Michael Chen MD Basophils/100 WBC (Bld) 0 % Normal 0-2 [facility] Comment on above: Performed By: #### C DP, BMPX #### [address] [address] Orthopedic Radiologic Technologist: Michael Chen MD Eosinophils (Bld) [#/Vol] 0.10 10*3/uL Normal 0.00-0.44 [facility] Comment on above: Performed By: #### C DP, BMPX #### [address] [address] Orthopedic Radiologic Technologist: Michael Chen MD Eosinophils/100 WBC (Bld) 1 % Normal 1-4 [facility] Comment on above: Performed By: #### C DP, BMPX #### [address] [address] Orthopedic Radiologic Technologist: Michael Chen MD Erythrocyte distribution width (RBC) [Ratio] 13.6 % Normal 11.8-14.4 [facility] Comment on above: Performed By: #### C DP, BMPX #### [address] [address] Orthopedic Radiologic Technologist: Michael Chen MD Hematocrit (Bld) [Volume fraction] 27.9 % Low 36.3-47.1 [facility] Comment on above: Performed By: #### C DP, BMPX #### [place] [address] Orthopedic Radiologic Technologist: Michael Chen MD Hemoglobin (Bld) [Mass/Vol] 8.4 g/dL Low 11.9-15.1 [facility] Comment on above: Performed By: #### C DP, BMPX #### [place] [address] Orthopedic Radiologic Technologist: Michael Chen MD Immature granulocytes/100 WBC (Bld) 1 % High 0 [facility] Comment on above: Performed By: #### C DP, BMPX #### [place] [address] Orthopedic Radiologic Technologist: Michael Chen MD Lymphocytes (Bld) [#/Vol] 0.94 10*3/uL Low 1.10-3.70 [facility] Comment on above: Performed By: #### C DP, BMPX #### [place] [address] Orthopedic Radiologic Technologist: Michael Chen MD Lymphocytes/100 WBC (Bld) 11 % Low 24-43 [facility] Comment on above: Performed By: #### C DP, BMPX #### [place] [address] Orthopedic Radiologic Technologist: Michael Chen MD MCH (RBC) [Entitic mass] 30.5 pg Normal 25.2-33.5 [facility] Comment on above: Performed By: #### C DP, BMPX #### [place] [address] Orthopedic Radiologic Technologist: Michael Chen MD MCHC (RBC) [Mass/Vol] 30.1 g/dL Normal 28.4-34.8 [facility] Comment on above: Performed By: #### C DP, BMPX #### [address] [address] Orthopedic Radiologic Technologist: Michael Chen MD MCV (RBC) [Entitic vol] 101.5 fL Normal 82.6-102.9 [facility] Comment on above: Performed By: #### C DP, BMPX #### [address] [address] Orthopedic Radiologic Technologist: Michael Chen MD Monocytes (Bld) [#/Vol] 0.54 10*3/uL Normal 0.10-1.20 [facility] Comment on above: Performed By: #### C DP, BMPX #### [address] [address] Orthopedic Radiologic Technologist: Michael Chen MD Monocytes/100 WBC (Bld) 7 % Normal 3-12 [facility] Comment on above: Performed By: #### C DP, BMPX #### [address] [address] Orthopedic Radiologic Technologist: Michael Chen MD Neutrophil (Seg) 80 % High 36-65 [facility] Comment on above: Performed By: #### C DP, BMPX #### [address] [address] Orthopedic Radiologic Technologist: Michael Chen MD NRBC Automated 0.0 per 100 WBC Normal 0.0 [facility] Comment on above: Performed By: #### C DP, BMPX #### [address] [address] Orthopedic Radiologic Technologist: Michael Chen MD Platelet mean volume (Bld) [Entitic vol] 8.9 fL Normal 8.1-13.5 [facility] Comment on above: Performed By: #### C DP, BMPX #### [address] [address] Orthopedic Radiologic Technologist: Michael Chen MD Platelets (Bld) [#/Vol] 281 10*3/uL Normal 138-453 [facility] Comment on above: Performed By: #### C DP, BMPX #### [facility] [address] [place] [address] Orthopedic Radiologic Technologist: Michael Chen MD RBC (Bld) [#/Vol] 2.75 10*6/uL Low 3.95-5.11 [facility] Comment on above: Performed By: #### C DP, BMPX #### [facility] [employer] [address] [place] [address] Orthopedic Radiologic Technologist: Michael Chen MD WBC (Bld) [#/Vol] 8.2 10*3/uL Normal 3.5-11.3 [facility] Comment on above: Performed By: #### C DP, BMPX #### [facility] [employer] [address] [place] [address] Orthopedic Radiologic Technologist: Michael Chen MD Basic Metab w/rfx MGon 09-29 Anion gap [Moles/Vol] 12 mmol/L Normal 9-16 [facility] Comment on above: Performed By: #### L IVP, BMPX, REJEC, BNP #### [facility] [address] [place] [address] Orthopedic Radiologic Technologist: Michael Chen MD Calcium [Mass/Vol] 8.2 mg/dL Low 8.6-10.4 [facility] Comment on above: Performed By: #### L IVP, BMPX, REJEC, BNP #### [facility] [address] [place] [address] Orthopedic Radiologic Technologist: Michael Chen MD Chloride [Moles/Vol] 103 mmol/L Normal 98-107 [facility] Comment on above: Performed By: #### L IVP, BMPX, REJEC, BNP #### [employer] [facility] [place] [address] Orthopedic Radiologic Technologist: Michael Chen MD CO2 [Moles/Vol] 23 mmol/L Normal 20-31 [facility] Comment on above: Performed By: #### L IVP, BMPX, REJEC, BNP #### [facility] [address] [place] [address] Orthopedic Radiologic Technologist: Michael Chen MD Creatinine [Mass/Vol] 1.6 mg/dL High 0.50-0.90 [facility] Comment on above: Performed By: #### L IVP, BMPX, REJEC, BNP #### [address] [address] Orthopedic Radiologic Technologist: Michael Chen MD GFR/1.73 sq M.predicted among non-blacks MDRD (S/P/Bld) [Vol rate/Area] 35 mL/min/{1.73_m2} Low >60 [facility] Comment on above: Result Comment: These results are not intended for use in patients <18 years of age. eGFR results are calculated without a race factor using the 2020 CKD-EPI equation. Careful clinical correlation is recommended, particularly when comparing to results calculated using previous equations. The CKD-EPI equation is less accurate in patients with extremes of muscle mass, extra-renal metabolism of creatine, excessive creatine ingestion, or following therapy that affects renal tubular secretion. Performed By: #### L IVP, BMPX, REJEC, BNP #### [facility] [place] [address] Orthopedic Radiologic Technologist: Michael Chen MD Glucose [Mass/Vol] 89 mg/dL Normal 74-99 [facility] Comment on above: Performed By: #### L IVP, BMPX, REJEC, BNP #### [facility] [address] [place] [address] Orthopedic Radiologic Technologist: Michael Chen MD Potassium [Moles/Vol] 4.6 mmol/L Normal 3.7-5.3 [facility] Comment on above: Result Comment: SPEC IMEN SLIGHTLY HEMOLYZED, RESULTS MAY BE ADVERSELY AFFECTED. Performed By: #### L IVP, BMPX, REJEC, BNP #### [facility] [address] [place] [address] Orthopedic Radiologic Technologist: Michael Chen MD Sodium [Moles/Vol] 138 mmol/L Normal 136-145 [facility] Comment on above: Performed By: #### L IVP, BMPX, REJEC, BNP #### [employer] [address] [place] [address] Orthopedic Radiologic Technologist: Michael Chen MD Urea nitrogen [Mass/Vol] 57 mg/dL High 8-23 [facility] Comment on above: Performed By: #### L IVP, BMPX, REJEC, BNP #### [facility] [address] [place] [address] Orthopedic Radiologic Technologist: Michael Chen MD Brain Natri. Peptideon 09-29 Natriuretic peptide B (Bld) [Mass/Vol] 1428 pg/mL High 0-300 [facility] Comment on above: Result Comment: An a ge-independent cutoff point of 300 pg/ml has a 98% negative predictive value excluding acute heart failure. Performed By: #### L IVP, BMPX, REJEC, BNP #### [facility] [address] [place] [address] Orthopedic Radiologic Technologist: Michael Chen MD Liver Profileon 09-30-2023 Albumin [Mass/Vol] 3.5 g/dL Normal 3.5-5.2 [facility] Comment on above: Performed By: #### L IVP, BMPX, REJEC, BNP #### [employer] [address] [place] [address] Orthopedic Radiologic Technologist: Michael Chen MD Albumin/Glob Ratio 2.0 Normal 1.0-2.5 [facility] Comment on above: Performed By: #### L IVP, BMPX, REJEC, BNP #### [facility] [employer] [address] [place] [address] Orthopedic Radiologic Technologist: Michael Chen MD Alkaline Phos 301 U/L High 35-104 [facility] Comment on above: Performed By: #### L IVP, BMPX, REJEC, BNP #### [facility] [employer] [address] [place] [address] Orthopedic Radiologic Technologist: Michael Chen MD ALT [Catalytic activity/Vol] 17 U/L Normal 10-35 [facility] Comment on above: Performed By: #### L IVP, BMPX, REJEC, BNP #### [facility] [employer] [address] [place] [address] Orthopedic Radiologic Technologist: Michael Chen MD AST [Catalytic activity/Vol] 33 U/L Normal 10-35 [facility] Comment on above: Result Comment: SPEC IMEN SLIGHTLY HEMOLYZED, RESULTS MAY BE ADVERSELY AFFECTED. Performed By: #### L IVP, BMPX, REJEC, BNP #### [facility] [employer] [address] [place] [address] Orthopedic Radiologic Technologist: Michael Chen MD Bilirubin [Mass/Vol] 0.2 mg/dL Normal 0.00-1.20 [facility] Comment on above: Performed By: #### L IVP, BMPX, REJEC, BNP #### [facility] [address] [place] [address] Orthopedic Radiologic Technologist: Michael Chen MD Bilirubin, Indirect 0.1 mg/dL Normal 0.0-1.0 [facility] Comment on above: Performed By: #### L IVP, BMPX, REJEC, BNP #### [facility] [employer] [address] [place] [address] Orthopedic Radiologic Technologist: Michael Chen MD Bilirubin.indirect [Mass/Vol] mg/dL Normal 0.00-0.30 [facility] Comment on above: Performed By: #### L IVP, BMPX, REJEC, BNP #### [facility] [employer] [address] [place] [address] Orthopedic Radiologic Technologist: Michael Chen MD Globulin (S) [Mass/Vol] 2.1 g/dL [facility] Comment on above: Performed By: #### L IVP, BMPX, REJEC, BNP #### [address] [address] Orthopedic Radiologic Technologist: Michael Chen MD Protein [Mass/Vol] 5.6 g/dL Low 6.6-8.7 [facility] Comment on above: Performed By: #### L IVP, BMPX, REJEC, BNP #### [address] [address] Orthopedic Radiologic Technologist: Michael Chen MD Specimen Rejectionon 024 Reason for rejection Unable to perform testing: Specimen clotted. Normal [facility] Comment on above: Performed By: #### L IVP, BMPX, REJEC, BNP #### [facility] [employer] [address] [place] [address] Orthopedic Radiologic Technologist: Michael Chen MD Source of sample .BLOOD [facility] Comment on above: Performed By: #### L IVP, BMPX, REJEC, BNP #### [facility] [employer] [address] [place] [id number] Orthopedic Radiologic Technologist: Michael Chen MD Test ordered CDP [facility] Comment on above: Performed By: #### L IVP, BMPX, REJEC, BNP #### [facility] [employer] [address] [place] [address] Orthopedic Radiologic Technologist: Michael Chen MD XR CERVICAL SPINE (2-3 VIEWS )on 09-30-2023 XR CERVICAL SPINE (2-3 VIEWS) EXAMINATION: 4 XRAY VIEWS OF THE CERVICAL SPINE 09/30/2023 9:37 am COMPARISON: None. HISTORY: ORDERING SYSTEM PROVIDED HISTORY: C2 fx, AP lateral uprigth open mouth TECHNOLOGIST PROVIDED HISTORY: C2 fx, AP lateral uprigth open mouth FINDINGS: Bone mineral density is significantly decreased, which limits the sensitivity of the exam. Vertebral body height and alignment is maintained. A known fracture of C2 is suboptimally visualized due to overlapping osseous structures. Moderate multilevel degenerative disc disease and degenerative joint disease. No erosions are present. No evidence of critical spinal canal stenosis. IMPRESSION: 1. A known fracture of C2 is suboptimally visualized due to overlapping osseous structures. 2. Moderate multilevel degenerative disc disease and degenerative joint disease. 3. Decreased bone mineral density. Interpreted by: Carlos Peralta MD Signed by: Carlos Peralta MD 09/30/23 Final result Normal [facility] XR CHEST PORTABLEon 09-30-19 XR CHEST PORTABLE EXAMINATION: ONE XRAY VIEW OF THE CHEST 09/30/2023 2:30 pm COMPARISON: None. HISTORY: ORDERING SYSTEM PROVIDED HISTORY: CHF TECHNOLOGIST PROVIDED HISTORY: CHF Reason for Exam: Upright port, CHF FINDINGS: The cardiomediastinal silhouette is normal in size. Right-sided port noted with distal tip projecting over the superior vena cava. Lung volumes are low. Mild vascular congestive changes are present with possible mild interstitial edema. No evidence of lobar infiltrate. No pleural effusion or pneumothorax. IMPRESSION: Low lung volumes. Mild vascular congestive changes with possible mild interstitial edema. Interpreted by: Carlos Peralta MD Signed by: Carlos Peralta MD 09/30/23 Final result Normal [facility] Office Visiton 08-16-2023 Follow-up visit [id number] Loren Moser A 1960 F Date Provider Department Center 08/16/2023 1596-MACIE GARCIA CARD [facility] Family History Family history unknown: Yes Level of Service:78347 [place] OFFICE/OUTPATIENT ESTABLISHED MOD MDM 30 MIN Normal [facility] Documentationon 08-07-2023 Documentation [id number] Loren Mosera A 1960 F Date Provider Department Center 08/07/2023 [id number]-LUEAOPKAPARNA [facility]IL [facility] Family History Family history unknown: Yes Reason for Visit and Comments: HF inpatient satisfaction survey sent. [Other] Normal [facility] 36on 08-04-2023 36 DC to home on 08/03/19 024 Spoke to pt on 08/04/2023 Med rec completed with pts Delio Pt will need to reschedule appt with cardiology, she will call [place] [facility] to reschedule and will try to get in next week Normal [facility] 30on 08-03-2023 30 Problem: Pain - Adul [...] including repeat lab results as appropriate Normal [facility] BASIC METABOLIC PANELon 02- Anion gap [Moles/Vol] 14 mmol/L Normal 7-20 [facility] Comment on above: Performed By: #### L [id number] #### [facility] ([facility]) [address] [place] [address] Calcium [Mass/Vol] 8.6 mg/dL Normal 8.6-10.3 [facility] Comment on above: Performed By: #### L [id number] #### [facility] ([facility]) [address] [place] [address] Chloride [Moles/Vol] 96 mmol/L Low 98-107 [facility] Comment on above: Performed By: #### L [id number] #### [facility] ([facility]) [address] [place] [address] CO2 [Moles/Vol] 30 mmol/L Normal 21-31 [facility] Comment on above: Performed By: #### L [id number] #### [facility] ([facility]) [address] [address] Creatinine [Mass/Vol] 2.67 mg/dL High 0.60-1.20 [facility] Comment on above: Performed By: #### L [id number] #### [facility] ([facility]) [address] [place] [address] GLOMERULAR FILTRATION RATE ML/MIN/1.73 SQ M.PREDICTED 19.7 mL/min/1.73m*2 Low >60.0 [facility] Comment on above: Result Comment: [facility]???s estimated glomerular filtration rate (eGFR) will no [...] individuals. Performed By: #### L [id number] #### [facility] ([facility]) [address] [place] [address] Glucose [Mass/Vol] 78 mg/dL Normal 70-100 [facility] Comment on above: Performed By: #### L [id number] #### [facility] ([facility]) [address] [place] [address] Potassium [Moles/Vol] 3.9 mmol/L Normal 3.5-5.1 [facility] Comment on above: Performed By: #### L [id number] #### [facility] [address] [place] [address] Sodium [Moles/Vol] 136 mmol/L Normal 136-145 [facility] Comment on above: Performed By: #### L [id number] #### [facility] ([facility]) [address] [place] [address] Urea nitrogen [Mass/Vol] 94 mg/dL High 7-25 [facility] Comment on above: Performed By: #### L [id number] #### [facility] ([facility]) [address] [place] [address] UREA NITROGEN/CREATININE (MASS RATIO) IN SER/PLAS 35.2 Normal [facility] Comment on above: Performed By: #### L [id number] #### [facility] ([facility]) [address] [place] [address] CBC WITH AUTO DIFFERENTIALon 08-03-2023 Basophils (Bld) [#/Vol] 0.03 10*3/uL Normal 0.00-0.20 [facility] Comment on above: Performed By: #### L [id number] #### [facility] ([facility]) [address] [place] [address] Basophils/100 WBC (Bld) 0.3 % Normal 0.0-1.0 [facility] Comment on above: Performed By: #### L [id number] #### [facility] ([facility]) [address] [place] [address] Eosinophils (Bld) [#/Vol] 0.14 10*3/uL Normal 0.00-0.50 [facility] Comment on above: Performed By: #### L [id number] #### [facility] ([facility]) [address] [place] [address] Eosinophils/100 WBC (Bld) 1.4 % Normal 0.0-6.0 [facility] Comment on above: Performed By: #### L [id number] #### [facility] ([facility]) [address] [place] [address] Erythrocyte distribution width (RBC) [Ratio] 12.7 % Normal 11.5-15.0 [facility] Comment on above: Performed By: #### L [id number] #### [facility] ([facility]) [address] [place] [address] ERYTHROCYTE MEAN CORPUSCULAR HEMOGLOBIN CONCENTRATION (G/DL) BY AUTOMATED 31.6 g/dL Low 32.0-35.0 [facility] Comment on above: Performed By: #### L [id number] #### [facility] [address] [place] [address] Hematocrit (Bld) [Volume fraction] 29.7 % Low 36.0-48.0 [facility] Comment on above: Performed By: #### L [id number] #### [facility] [address] [place] [address] Hemoglobin (Bld) [Mass/Vol] 9.4 g/dL Low 12.0-15.0 [facility] Comment on above: Performed By: #### L [id number] #### [facility] ([facility]) [address] [place] [address] Immature granulocytes (Bld) [#/Vol] 0.06 10*3/uL Normal 0.00-0.20 [facility] Comment on above: Performed By: #### L [id number] #### [facility] ([facility]) [address] [place] [address] Immature granulocytes/100 WBC (Bld) 0.6 % Normal 0.0-1.0 [facility] Comment on above: Performed By: #### L [id number] #### [facility] ([facility]) [address] [place] [address] Lymphocytes (Bld) [#/Vol] 0.79 10*3/uL Low 1.20-4.00 [facility] Comment on above: Performed By: #### L [id number] #### [facility] ([facility]) [address] [place] [address] Lymphocytes/100 WBC (Bld) 8.0 % Low 20.0-45.0 [facility] Comment on above: Performed By: #### L [id number] #### [facility] ([facility]) [address] [place] [address] MCH (RBC) [Entitic mass] 31.4 pg Normal 27.0-33.0 [facility] Comment on above: Performed By: #### L [id number] #### [facility] ([facility]) [address] [place] [address] MCV (RBC) [Entitic vol] 99.3 fL High 82.0-98.0 [facility] Comment on above: Performed By: #### L [id number] #### [facility] ([facility]) [address] [place] [address] Monocytes (Bld) [#/Vol] 0.46 10*3/uL Normal 0.10-1.00 [facility] Comment on above: Performed By: #### L [id number] #### [facility] ([facility]) [address] [place] [address] Monocytes/100 WBC (Bld) 4.6 % Low 5.0-12.0 [facility] Comment on above: Performed By: #### L [id number] #### [facility] ([facility]) [address] [place] [address] Neutrophils (Bld) [#/Vol] 8.42 10*3/uL High 1.60-7.60 [facility] Comment on above: Performed By: #### L [id number] #### [facility] ([facility]) [address] [place] [address] Neutrophils/100 WBC (Bld) 85.1 % High 40.0-72.0 [facility] Comment on above: Performed By: #### L [id number] #### [facility] [address] [place] [address] NRBC (PER 100 WBCS) BY AUTOMATED COUNT 0.0 % Normal 0 [facility] Comment on above: Performed By: #### L [id number] #### [facility] ([facility]) [address] [place] [address] PLATELETS (10*3/UL) IN BLOOD AUTOMATED COUNT 211 10*3/uL Normal 150-400 [facility] Comment on above: Performed By: #### L [id number] #### [facility] ([facility]) [address] [place] [address] RBC (Bld) [#/Vol] 2.99 10*6/uL Low 3.80-5.00 [facility] Comment on above: Performed By: #### L [id number] #### [facility] ([facility]) [address] [place] [address] WBC (Bld) [#/Vol] 9.90 10*3/uL Normal 4.00-10.60 [facility] Comment on above: Performed By: #### L [id number] #### [facility] ([facility]) [address] [place] [address] 30on 08-02-2023 30 Daily Case Managemen t Update Multidisciplinary [...] exacerbation Level of Consultation Consultation and Management 07/28/231917 Ancillary Consults (From admission, onward) Start Ordered 07/28/231918 Inpatient consult to Social Work Once Provider: (Not yet assigned) Question Answer Comment Select all services needed for the patient [facility] (30 day convalescent stay) Please indicate [...] OT? Answer: Discharge Planning 08/01/23 1007 Normal [facility] 30 Problem: Pain - Adul t Goal: Verbalizes/displays adequate comfort level or baseline comfort level Outcome: Progressing Problem: Safety - Adult Goal: Free from fall injury Outcome: Progressing Flowsheets (Taken 08/02/2023820) Free from fall injury: Assess patient frequently [...] symptoms of volume excess or deficit Normal [facility] BASIC METABOLIC PANELon Anion gap [Moles/Vol] 10 mmol/L Normal 7-20 [facility] Comment on above: Performed By: #### L [id number] #### [facility] ([facility]) [address] [place] [address] Calcium [Mass/Vol] 8.5 mg/dL Low 8.6-10.3 [facility] Comment on above: Performed By: #### L [id number] #### [facility] [address] [place] [address] Chloride [Moles/Vol] 96 mmol/L Low 98-107 [facility] Comment on above: Performed By: #### L [id number] #### [facility] ([facility]) [address] [place] [address] CO2 [Moles/Vol] 33 mmol/L High 21-31 [facility] Comment on above: Performed By: #### L [id number] #### [facility] ([facility]) [address] [place] [address] Creatinine [Mass/Vol] 2.73 mg/dL High 0.60-1.20 [facility] Comment on above: Performed By: #### L [id number] #### [facility] ([facility]) [address] [place] [address] GLOMERULAR FILTRATION RATE ML/MIN/1.73 SQ M.PREDICTED 19.2 mL/min/1.73m*2 Low >60.0 [facility] Comment on above: Result Comment: [facility]???s estimated glomerular filtration rate (eGFR) will no [...] group of individuals. Performed By: #### L [id number] #### [facility] [address] [place] [address] Glucose [Mass/Vol] 114 mg/dL High 70-100 [facility] Comment on above: Performed By: #### L [id number] #### [facility] ([facility]) [address] [place] [address] Potassium [Moles/Vol] 3.7 mmol/L Normal 3.5-5.1 [facility] Comment on above: Performed By: #### L [id number] #### [facility] ([facility]) [address] [place] [address] Sodium [Moles/Vol] 135 mmol/L Low 136-145 [facility] Comment on above: Performed By: #### L [id number] #### [facility] ([facility]) [address] [place] [address] Urea nitrogen [Mass/Vol] 90 mg/dL High 7-25 [facility] Comment on above: Performed By: #### L [id number] #### [facility] ([facility]) [address] [place] [address] UREA NITROGEN/CREATININE (MASS RATIO) IN SER/PLAS 33.0 Normal [facility] Comment on above: Performed By: #### L [id number] #### [facility] ([facility]) [address] [place] [address] CBC WITH AUTO DIFFERENTIALon 08-02-2023 Basophils (Bld) [#/Vol] 0.03 10*3/uL Normal 0.00-0.20 [facility] Comment on above: Performed By: #### L [id number] #### [facility] ([facility]) [address] [place] [address] Basophils/100 WBC (Bld) 0.4 % Normal 0.0-1.0 [facility] Comment on above: Performed By: #### L [id number] #### [facility] ([facility]) [address] [address] Eosinophils (Bld) [#/Vol] 0.13 10*3/uL Normal 0.00-0.50 [facility] Comment on above: Performed By: #### L [id number] #### [facility] [address] [place] [address] Eosinophils/100 WBC (Bld) 1.7 % Normal 0.0-6.0 [facility] Comment on above: Performed By: #### L [id number] #### [facility] ([facility]) [address] [place] [address] Erythrocyte distribution width (RBC) [Ratio] 12.9 % Normal 11.5-15.0 [facility] Comment on above: Performed By: #### L [id number] #### [facility] ([facility]) [address] [place] [address] ERYTHROCYTE MEAN CORPUSCULAR HEMOGLOBIN CONCENTRATION (G/DL) BY AUTOMATED 31.1 g/dL Low 32.0-35.0 [facility] Comment on above: Performed By: #### L [id number] #### [facility] ([facility]) [address] [place] [address] Hematocrit (Bld) [Volume fraction] 29.6 % Low 36.0-48.0 [facility] Comment on above: Performed By: #### L [id number] #### [facility] [address] [place] [address] Hemoglobin (Bld) [Mass/Vol] 9.2 g/dL Low 12.0-15.0 [facility] Comment on above: Performed By: #### L [id number] #### [facility] ([facility]) [address] [place] [address] Immature granulocytes (Bld) [#/Vol] 0.05 10*3/uL Normal 0.00-0.20 [facility] Comment on above: Performed By: #### L [id number] #### [facility] ([facility]) [address] [place] [address] Immature granulocytes/100 WBC (Bld) 0.7 % Normal 0.0-1.0 [facility] Comment on above: Performed By: #### L [id number] #### [facility] ([facility]) [address] [place] [address] Lymphocytes (Bld) [#/Vol] 1.62 10*3/uL Normal 1.20-4.00 [facility] Comment on above: Performed By: #### L [id number] #### [facility] ([facility]) [address] [address] Lymphocytes/100 WBC (Bld) 21.7 % Normal 20.0-45.0 [facility] Comment on above: Performed By: #### L [id number] #### [facility] ([facility]) [address] [address] MCH (RBC) [Entitic mass] 30.9 pg Normal 27.0-33.0 [facility] Comment on above: Performed By: #### L [id number] #### [facility] ([facility]) [address] [place] [address] MCV (RBC) [Entitic vol] 99.3 fL High 82.0-98.0 [facility] Comment on above: Performed By: #### L [id number] #### [facility] ([facility]) [address] [place] [address] Monocytes (Bld) [#/Vol] 0.53 10*3/uL Normal 0.10-1.00 [facility] Comment on above: Performed By: #### L [id number] #### [facility] ([facility]) [address] [address] Monocytes/100 WBC (Bld) 7.1 % Normal 5.0-12.0 [facility] Comment on above: Performed By: #### L [id number] #### [facility] [address] [address] Neutrophils (Bld) [#/Vol] 5.10 10*3/uL Normal 1.60-7.60 [facility] Comment on above: Performed By: #### L [id number] #### [facility] ([facility]) [address] [place] [address] Neutrophils/100 WBC (Bld) 68.4 % Normal 40.0-72.0 [facility] Comment on above: Performed By: #### L [id number] #### [facility] ([facility]) [address] [place] [address] NRBC (PER 100 WBCS) BY AUTOMATED COUNT 0.0 % Normal 0 [facility] Comment on above: Performed By: #### L [id number] #### [facility] ([facility]) [address] [place] [address] PLATELETS (10*3/UL) IN BLOOD AUTOMATED COUNT 249 10*3/uL Normal 150-400 [facility] Comment on above: Performed By: #### L [id number] #### [facility] ([facility]) [address] [place] [address] RBC (Bld) [#/Vol] 2.98 10*6/uL Low 3.80-5.00 [facility] Comment on above: Performed By: #### L [id number] #### [facility] ([facility]) [address] [place] [address] WBC (Bld) [#/Vol] 7.46 10*3/uL Normal 4.00-10.60 [facility] Comment on above: Performed By: #### L [id number] #### [facility] ([facility]) [address] [place] [address] MAGNESIUMon 08-02-2023 Magnesium [Mass/Vol] 2.1 mg/dL Normal 1.9-2.7 [facility] Comment on above: Performed By: #### L [id number] #### [facility] ([facility]) [address] [place] [address] PHOSPHORUSon 08-02-2023 Magnesium [Mass/Vol] 5.3 mg/dL High 2.5-5.0 [facility] Comment on above: Performed By: #### L [id number] #### [facility] ([facility]) [address] [place] [address] BASIC METABOLIC PANELon 02-0 Anion gap [Moles/Vol] 11 mmol/L Normal 7-20 [facility] Comment on above: Performed By: #### L [id number] #### [facility] ([facility]) [address] [place] [address] Calcium [Mass/Vol] 8.9 mg/dL Normal 8.6-10.3 [facility] Comment on above: Performed By: #### L [id number] #### [facility] ([facility]) [address] [place] [address] Chloride [Moles/Vol] 98 mmol/L Normal 98-107 [facility] Comment on above: Performed By: #### L [id number] #### [facility] ([facility]) [address] [place] [address] CO2 [Moles/Vol] 32 mmol/L High 21-31 [facility] Comment on above: Performed By: #### L [id number] #### [facility] ([facility]) [address] [place] [address] Creatinine [Mass/Vol] 2.68 mg/dL High 0.60-1.20 [facility] Comment on above: Performed By: #### L [id number] #### [facility] ([facility]) [address] [place] [address] GLOMERULAR FILTRATION RATE ML/MIN/1.73 SQ M.PREDICTED 19.6 mL/min/1.73m*2 Low >60.0 [facility] Comment on above: Result Comment: [facility]???s estimated glomerular filtration rate (eGFR) will no [...] group of individuals. Performed By: #### L [id number] #### [facility] ([facility]) [address] [place] [address] Glucose [Mass/Vol] 71 mg/dL Normal 70-100 [facility] Comment on above: Performed By: #### L [id number] #### [facility] ([facility]) [address] [place] [address] Potassium [Moles/Vol] 4.1 mmol/L Normal 3.5-5.1 [facility] Comment on above: Performed By: #### L [id number] #### [facility] ([facility]) [address] [place] [address] Sodium [Moles/Vol] 137 mmol/L Normal 136-145 [facility] Comment on above: Performed By: #### L [id number] #### [facility] ([facility]) [address] [place] [address] Urea nitrogen [Mass/Vol] 87 mg/dL High 7-25 [facility] Comment on above: Performed By: #### L [id number] #### [facility] ([facility]) [address] [place] [address] UREA NITROGEN/CREATININE (MASS RATIO) IN SER/PLAS 32.5 Normal [facility] Comment on above: Performed By: #### L [id number] #### [facility] ([facility]) [address] [place] [address] CBC WITH AUTO DIFFERENTIALon 08-01-2023 Basophils (Bld) [#/Vol] 0.03 10*3/uL Normal 0.00-0.20 [facility] Comment on above: Performed By: #### L [id number] ####[facility] ([facility])[address] [place] [address] Basophils/100 WBC (Bld) 0.4 % Normal 0.0-1.0 [facility] Comment on above: Performed By: #### L [id number] ####[facility] ([facility])[address] [place] [address] Eosinophils (Bld) [#/Vol] 0.11 10*3/uL Normal 0.00-0.50 [facility] Comment on above: Performed By: #### L [id number] ####[facility] [place] [address] Eosinophils/100 WBC (Bld) 1.5 % Normal 0.0-6.0 [facility] Comment on above: Performed By: #### L [id number] ####[facility] ([facility])[address] [place] [address] Erythrocyte distribution width (RBC) [Ratio] 12.8 % Normal 11.5-15.0 [facility] Comment on above: Performed By: #### L [id number] ####[facility] [place] [address] ERYTHROCYTE MEAN CORPUSCULAR HEMOGLOBIN CONCENTRATION (G/DL) BY AUTOMATED 31.1 g/dL Low 32.0-35.0 [facility] Comment on above: Performed By: #### L [id number] ####[facility] ([facility])[address] [place] [address] Hematocrit (Bld) [Volume fraction] 31.8 % Low 36.0-48.0 [facility] Comment on above: Performed By: #### L [id number] ####[facility] ([facility])[address] [place] [address] Hemoglobin (Bld) [Mass/Vol] 9.9 g/dL Low 12.0-15.0 [facility] Comment on above: Performed By: #### L [id number] ####[facility] ([facility])[address] [place] [address] Immature granulocytes (Bld) [#/Vol] 0.05 10*3/uL Normal 0.00-0.20 [facility] Comment on above: Performed By: #### L [id number] ####[facility] ([facility])[address] [place] [address] Immature granulocytes/100 WBC (Bld) 0.7 % Normal 0.0-1.0 [facility] Comment on above: Performed By: #### L [id number] ####[facility] ([facility])[address] [facility] [place] [address] Lymphocytes (Bld) [#/Vol] 1.55 10*3/uL Normal 1.20-4.00 [facility] Comment on above: Performed By: #### L [id number] ####[facility] ([facility])[address] [place] [address] Lymphocytes/100 WBC (Bld) 21.0 % Normal 20.0-45.0 [facility] Comment on above: Performed By: #### L [id number] ####[facility] ([facility])[address] [place] [address] MCH (RBC) [Entitic mass] 30.7 pg Normal 27.0-33.0 [facility] Comment on above: Performed By: #### L [id number] ####[facility] ([facility])[address] [place] [address] MCV (RBC) [Entitic vol] 98.5 fL High 82.0-98.0 [facility] Comment on above: Performed By: #### L [id number] ####[facility] [facility] [place] [address] Monocytes (Bld) [#/Vol] 0.55 10*3/uL Normal 0.10-1.00 [facility] Comment on above: Performed By: #### L [id number] ####[facility] ([facility])[address] [facility] [place] [address] Monocytes/100 WBC (Bld) 7.5 % Normal 5.0-12.0 [facility] Comment on above: Performed By: #### L [id number] ####[facility] ([facility])[address] [place] [address] Neutrophils (Bld) [#/Vol] 5.08 10*3/uL Normal 1.60-7.60 [facility] Comment on above: Performed By: #### L [id number] ####[facility] [place] [address] Neutrophils/100 WBC (Bld) 68.9 % Normal 40.0-72.0 [facility] Comment on above: Performed By: #### L [id number] ####[facility] ([facility])[address] [place] [address] NRBC (PER 100 WBCS) BY AUTOMATED COUNT 0.0 % Normal 0 [facility] Comment on above: Performed By: #### L [id number] ####[facility] ([facility])[address] [place] [address] PLATELETS (10*3/UL) IN BLOOD AUTOMATED COUNT 270 10*3/uL Normal 150-400 [facility] Comment on above: Performed By: #### L [id number] ####[facility] ([facility])[address] [place] [address] RBC (Bld) [#/Vol] 3.23 10*6/uL Low 3.80-5.00 [facility] Comment on above: Performed By: #### L [id number] ####[facility] [place] [address] WBC (Bld) [#/Vol] 7.37 10*3/uL Normal 4.00-10.60 [facility] Comment on above: Performed By: #### L [id number] ####[facility] ([facility])[address] [place] [address] MAGNESIUMon 08-01-2023 Magnesium [Mass/Vol] 1.8 mg/dL Low 1.9-2.7 [facility] Comment on above: Performed By: #### L [id number] ####[facility] [place] [address] PHOSPHORUSon 08-01-2023 Magnesium [Mass/Vol] 5.4 mg/dL High 2.5-5.0 [facility] Comment on above: Performed By: #### L [id number] ####[facility] ([facility])[address] [place] [address] TROPONIN Ion 08-01-2023 Troponin I.cardiac [Mass/Vol] 0.01 ng/mL Normal 0.00-0.04 [facility] Comment on above: Performed By: #### L [id number] #### [facility] ([facility]) [address] [place] [address] CBCon 07-31-2023 Erythrocyte distribution width (RBC) [Ratio] 13.0 % Normal 11.5-15.0 [facility] Comment on above: Performed By: #### L [id number] #### [facility] ([facility]) [address] [place] [address] ERYTHROCYTE MEAN CORPUSCULAR HEMOGLOBIN CONCENTRATION (G/DL) BY AUTOMATED 32.3 g/dL Normal 32.0-35.0 [facility] Comment on above: Performed By: #### L [id number] #### [facility] ([facility]) [address] [place] [address] Hematocrit (Bld) [Volume fraction] 28.2 % Low 36.0-48.0 [facility] Comment on above: Performed By: #### L [id number] #### [facility] ([facility]) [address] [place] [address] Hemoglobin (Bld) [Mass/Vol] 9.1 g/dL Low 12.0-15.0 [facility] Comment on above: Performed By: #### L [id number] #### [facility] [address] [place] [address] MCH (RBC) [Entitic mass] 31.4 pg Normal 27.0-33.0 [facility] Comment on above: Performed By: #### L [id number] #### [facility] ([facility]) [address] [place] [address] MCV (RBC) [Entitic vol] 97.2 fL Normal 82.0-98.0 [facility] Comment on above: Performed By: #### L [id number] #### [facility] ([facility]) [address] [place] [address] PLATELETS (10*3/UL) IN BLOOD AUTOMATED COUNT 247 10*3/uL Normal 150-400 [facility] Comment on above: Performed By: #### L [id number] #### [facility] ([facility]) [address] [place] [address] RBC (Bld) [#/Vol] 2.90 10*6/uL Low 3.80-5.00 [facility] Comment on above: Performed By: #### L [id number] #### [facility] ([facility]) [address] [place] [address] WBC (Bld) [#/Vol] 6.08 10*3/uL Normal 4.00-10.60 [facility] Comment on above: Performed By: #### L [id number] #### [facility] ([facility]) [address] [place] [address] COMPREHENSIVE METABOLIC PANE Sameer 07-31-2023 Albumin [Mass/Vol] 3.2 g/dL Low 3.5-5.7 [facility] [place] Comment on above: Performed By: #### L [id number] ####[facility] ([facility])[address] [place] [address] ALP [Catalytic activity/Vol] 156 U/L High 34-104 [facility] Comment on above: Performed By: #### L [id number] ####[facility] ([facility])[address] [place] [address] ALT [Catalytic activity/Vol] 13 U/L Normal 7-52 [facility] Comment on above: Performed By: #### L [id number] ####[facility] ([facility])[address] [place] [address] Anion gap [Moles/Vol] 11 mmol/L Normal 7-20 [facility] Comment on above: Performed By: #### L [id number] ####[facility] [place] [address] AST [Catalytic activity/Vol] 16 U/L Normal 13-39 [facility] Comment on above: Performed By: #### L [id number] ####[facility] ([facility])[address] [place] [address] Bilirubin [Mass/Vol] 0.2 mg/dL Low 0.3-1.0 [facility] Comment on above: Performed By: #### L [id number] ####[facility] ([facility])[address] [place] [address] Calcium [Mass/Vol] 8.7 mg/dL Normal 8.6-10.3 [facility] [place] Comment on above: Performed By: #### L [id number] ####[facility] [place] [address] Chloride [Moles/Vol] 101 mmol/L Normal 98-107 [facility] Comment on above: Performed By: #### L [id number] ####[facility] [place] [address] CO2 [Moles/Vol] 29 mmol/L Normal 21-31 [facility] Comment on above: Performed By: #### L [id number] ####[facility] [place] [address] Creatinine [Mass/Vol] 2.51 mg/dL High 0.60-1.20 [facility] Comment on above: Performed By: #### L [id number] ####[facility] ([facility])[address] [place] [address] GLOMERULAR FILTRATION RATE ML/MIN/1.73 SQ M.PREDICTED 21.2 mL/min/1.73m*2 Low >60.0 [facility] Comment on above: Result Comment: [facility]???s estimated glomerular filtration rate (eGFR) will no [...] of individuals. Performed By: #### L [id number] ####[facility] ([facility])[address] [place] [address] Glucose [Mass/Vol] 86 mg/dL Normal 70-100 [facility] [place] Comment on above: Performed By: #### L [id number] ####[facility] ([facility])[address] [place] [address] Potassium [Moles/Vol] 3.9 mmol/L Normal 3.5-5.1 [facility] Comment on above: Performed By: #### L [id number] ####[facility] ([facility])[address] [place] [address] Protein [Mass/Vol] 5.5 g/dL Low 6.0-8.3 [facility] [place] Comment on above: Performed By: #### L [id number] ####[facility] ([facility])[address] [place] [address] Sodium [Moles/Vol] 137 mmol/L Normal 136-145 [facility] Comment on above: Performed By: #### L [id number] ####[facility] ([facility])[address] [place] [address] Urea nitrogen [Mass/Vol] 88 mg/dL High 7-25 [facility] Comment on above: Performed By: #### L [id number] ####[facility] ([facility])[address] [place] [address] UREA NITROGEN/CREATININE (MASS RATIO) IN SER/PLAS 35.1 Normal [facility] Comment on above: Performed By: #### L [id number] ####[facility] ([facility])[address] [place] [address] HEPATITIS B CORE ANTIBODY, T OTALon 07-31-2023 HEPATITIS B VIRUS CORE AB (PRESENCE) IN SER/PLAS BY IMM Non-Reactive Normal Nonreactive [facility] Comment on above: Performed By: #### L [id number] ####[facility] ([facility])[address] [place] [address] HEPATITIS B SURFACE ANTIBODY QUANTon 07-31-2023 HEPATITIS B VIRUS SURFACE AB (MIU/ML) IN SERUM 1.84 mIU/mL Normal [facility] Comment on above: Result Comment: INTE RPRETATION: NONREACTIVE<8.00 mIU/mL INDETERMINATE8.00 - 12.00 mIU/mL REACTIVE>12 mIU/mL Performed By: #### L [id number] #### [facility] ([facility]) [address] [place] [address] HEPATITIS B SURFACE ANTIGENo n 07-31-2023 HEPATITIS B VIRUS SURFACE AG PRESENCE IN SERUM Non-Reactive Normal Nonreactive [facility] Comment on above: Performed By: #### L [id number] #### [facility] ([facility]) [address] [place] [address] HEPATITIS C ANTIBODYon 07-31 HEPATITIS C VIRUS AB PRESENCE IN SERUM Non-Reactive Normal Nonreactive [facility] Comment on above: Performed By: #### L [id number] #### [facility] ([facility]) [address] [place] [address] MAGNESIUMon 07-31-2023 Magnesium [Mass/Vol] 1.6 mg/dL Low 1.9-2.7 [facility] Comment on above: Performed By: #### L [id number] ####[facility] ([facility])[address] [place] [address] PROTEIN ELECTROPHORESIS, URI NE, 24 HOURon 07-31-2023 Protein (U) [Mass/Vol] 10.8 mg/dL Normal Un [facility] Comment on above: Result Comment: Ther e are no established reference values for random urine specimens. Performed By: #### L [id number] ####[facility] ([facility])[address] [place] [address] UPEP INTERPRETATION Please see attached report. Normal [facility] Comment on above: Performed By: #### L [id number] ####[facility] ([facility])[address] [place] [address] BASIC METABOLIC PANELon 02-0 Anion gap [Moles/Vol] 12 mmol/L Normal 7-20 [facility] Comment on above: Performed By: #### L [id number] #### [facility] ([facility]) [address] [place] [address] Calcium [Mass/Vol] 8.4 mg/dL Low 8.6-10.3 [facility] Comment on above: Performed By: #### L [id number] #### [facility] ([facility]) [address] [place] [address] Chloride [Moles/Vol] 103 mmol/L Normal 98-107 [facility] Comment on above: Performed By: #### L [id number] #### [facility] ([facility]) [address] [place] [address] CO2 [Moles/Vol] 25 mmol/L Normal 21-31 [facility] Comment on above: Performed By: #### L [id number] #### [facility] ([facility]) [address] [place] [address] Creatinine [Mass/Vol] 2.95 mg/dL High 0.60-1.20 [facility] Comment on above: Performed By: #### L [id number] #### [facility] ([facility]) [address] [place] [address] GLOMERULAR FILTRATION RATE ML/MIN/1.73 SQ M.PREDICTED 17.5 mL/min/1.73m*2 Low >60.0 [facility] Comment on above: Result Comment: [facility]???s estimated glomerular filtration rate (eGFR) will no [...] individuals. Performed By: #### L [id number] #### [facility] ([facility]) [address] [place] [address] Glucose [Mass/Vol] 84 mg/dL Normal 70-100 [facility] Comment on above: Performed By: #### L [id number] #### [facility] ([facility]) [address] [place] [address] Potassium [Moles/Vol] 4.2 mmol/L Normal 3.5-5.1 [facility] Comment on above: Performed By: #### L [id number] #### [facility] ([facility]) [address] [place] [address] Sodium [Moles/Vol] 136 mmol/L Normal 136-145 [facility] Comment on above: Performed By: #### L [id number] #### [facility] ([facility]) [address] [place] [address] Urea nitrogen [Mass/Vol] 96 mg/dL High 7-25 [facility] Comment on above: Performed By: #### L [id number] #### [facility] [address] [place] [address] UREA NITROGEN/CREATININE (MASS RATIO) IN SER/PLAS 32.5 Normal [facility] Comment on above: Performed By: #### L [id number] #### [facility] ([facility]) [address] [place] [address] CBCon 07-30-2023 Erythrocyte distribution width (RBC) [Ratio] 13.2 % Normal 11.5-15.0 [facility] Comment on above: Performed By: #### L [id number] #### [facility] [address] [place] [address] ERYTHROCYTE MEAN CORPUSCULAR HEMOGLOBIN CONCENTRATION (G/DL) BY AUTOMATED 32.0 g/dL Normal 32.0-35.0 [facility] Comment on above: Performed By: #### L [id number] #### [facility] [address] [place] [address] Hematocrit (Bld) [Volume fraction] 28.1 % Low 36.0-48.0 [facility] Comment on above: Performed By: #### L [id number] #### [facility] ([facility]) [address] [place] [address] Hemoglobin (Bld) [Mass/Vol] 9.0 g/dL Low 12.0-15.0 [facility] Comment on above: Performed By: #### L [id number] #### [facility] [address] [place] [address] MCH (RBC) [Entitic mass] 31.3 pg Normal 27.0-33.0 [facility] Comment on above: Performed By: #### L [id number] #### [facility] [address] [place] [address] MCV (RBC) [Entitic vol] 97.6 fL Normal 82.0-98.0 [facility] Comment on above: Performed By: #### L [id number] #### [facility] [address] [place] [address] PLATELETS (10*3/UL) IN BLOOD AUTOMATED COUNT 245 10*3/uL Normal 150-400 [facility] Comment on above: Performed By: #### L [id number] #### [facility] [address] [place] [address] RBC (Bld) [#/Vol] 2.88 10*6/uL Low 3.80-5.00 [facility] Comment on above: Performed By: #### L [id number] #### [facility] ([facility]) [address] [place] [address] WBC (Bld) [#/Vol] 5.95 10*3/uL Normal 4.00-10.60 [facility] Comment on above: Performed By: #### L [id number] #### [facility] ([facility]) [address] [place] [address] BASIC METABOLIC PANELon 02-0 Anion gap [Moles/Vol] 14 mmol/L Normal 7-20 [facility] Comment on above: Performed By: #### L [id number] ####[facility] ([facility])[address] [place] [address] Calcium [Mass/Vol] 8.0 mg/dL Low 8.6-10.3 [facility] Comment on above: Performed By: #### L [id number] ####[facility] ([facility])[address] [place] [address] Chloride [Moles/Vol] 104 mmol/L Normal 98-107 [facility] Comment on above: Performed By: #### L [id number] ####[facility] ([facility])[address] [place] [address] CO2 [Moles/Vol] 21 mmol/L Normal 21-31 [facility] Comment on above: Performed By: #### L [id number] ####[facility] ([facility])[address] [place] [address] Creatinine [Mass/Vol] 3.42 mg/dL High 0.60-1.20 [facility] Comment on above: Performed By: #### L [id number] ####[facility] ([facility])[address] [place] [address] GLOMERULAR FILTRATION RATE ML/MIN/1.73 SQ M.PREDICTED 14.7 mL/min/1.73m*2 Low >60.0 [facility] Comment on above: Result Comment: [facility]???s estimated glomerular filtration rate (eGFR) will no [...] of individuals. Performed By: #### L [id number] ####[facility] ([facility])[address] [place] [address] Glucose [Mass/Vol] 75 mg/dL Normal 70-100 [facility] Comment on above: Performed By: #### L [id number] ####[facility] ([facility])[address] [place] [address] Potassium [Moles/Vol] 5.1 mmol/L Normal 3.5-5.1 [facility] Comment on above: Performed By: #### L [id number] ####[facility] ([facility])[address] [place] [address] Sodium [Moles/Vol] 134 mmol/L Low 136-145 [facility] Comment on above: Performed By: #### L [id number] ####[facility] ([facility])[address] [place] [address] Urea nitrogen [Mass/Vol] 104 mg/dL High 7-25 [facility] Comment on above: Performed By: #### L [id number] ####[facility] ([facility])[address] [place] [address] UREA NITROGEN/CREATININE (MASS RATIO) IN SER/PLAS 30.4 Normal [facility] Comment on above: Performed By: #### L [id number] ####[facility] ([facility])[address] [place] [address] Anion gap [Moles/Vol] 14 mmol/L Normal 7-20 [facility] Comment on above: Performed By: #### L [id number] #### [facility] ([facility]) [address] [place] [address] Calcium [Mass/Vol] 7.5 mg/dL Low 8.6-10.3 [facility] Comment on above: Performed By: #### L [id number] #### [facility] ([facility]) [address] [place] [address] Chloride [Moles/Vol] 104 mmol/L Normal 98-107 [facility] Comment on above: Performed By: #### L [id number] #### [facility] ([facility]) [address] [place] [address] CO2 [Moles/Vol] 21 mmol/L Normal 21-31 [facility] Comment on above: Performed By: #### L [id number] #### [facility] ([facility]) [address] [place] [address] Creatinine [Mass/Vol] 3.52 mg/dL High 0.60-1.20 [facility] Comment on above: Performed By: #### L [id number] #### [facility] ([facility]) [address] [place] [address] GLOMERULAR FILTRATION RATE ML/MIN/1.73 SQ M.PREDICTED 14.2 mL/min/1.73m*2 Low >60.0 [facility] Comment on above: Result Comment: [facility]???s estimated glomerular filtration rate (eGFR) will no [...] individuals. Performed By: #### L [id number] #### [facility] [address] [place] [address] Glucose [Mass/Vol] 82 mg/dL Normal 70-100 [facility] Comment on above: Performed By: #### L [id number] #### [facility] ([facility]) [address] [place] [address] Potassium [Moles/Vol] 4.9 mmol/L Normal 3.5-5.1 [facility] Comment on above: Performed By: #### L [id number] #### [facility] ([facility]) [address] [place] [address] Sodium [Moles/Vol] 134 mmol/L Low 136-145 [facility] Comment on above: Performed By: #### L [id number] #### [facility] ([facility]) [address] [place] [address] Urea nitrogen [Mass/Vol] 105 mg/dL High 7-25 [facility] Comment on above: Performed By: #### L [id number] #### [facility] ([facility]) [address] [place] [address] UREA NITROGEN/CREATININE (MASS RATIO) IN SER/PLAS 29.8 Normal [facility] Comment on above: Performed By: #### L [id number] #### [facility] ([facility]) [address] [place] [address] CBC WITH AUTO DIFFERENTIALon 07-29-2023 Basophils (Bld) [#/Vol] 0.02 10*3/uL Normal 0.00-0.20 [facility] Comment on above: Performed By: #### L [id number] ####[facility] ([facility])[address] [place] [address] Basophils/100 WBC (Bld) 0.3 % Normal 0.0-1.0 [facility] Comment on above: Performed By: #### L [id number] ####[facility] ([facility])[address] [place] [address] Eosinophils (Bld) [#/Vol] 0.12 10*3/uL Normal 0.00-0.50 [facility] Comment on above: Performed By: #### L [id number] ####[facility] ([facility])[address] [place] [address] Eosinophils/100 WBC (Bld) 1.9 % Normal 0.0-6.0 [facility] Comment on above: Performed By: #### L [id number] ####[facility] ([facility])[address] [place] [address] Erythrocyte distribution width (RBC) [Ratio] 13.5 % Normal 11.5-15.0 [facility] Comment on above: Performed By: #### L [id number] ####[facility] [place] [address] ERYTHROCYTE MEAN CORPUSCULAR HEMOGLOBIN CONCENTRATION (G/DL) BY AUTOMATED 31.5 g/dL Low 32.0-35.0 [facility] Comment on above: Performed By: #### L [id number] ####[facility] ([facility])[address] [place] [address] Hematocrit (Bld) [Volume fraction] 27.6 % Low 36.0-48.0 [facility] Comment on above: Performed By: #### L [id number] ####[facility] [place] [address] Hemoglobin (Bld) [Mass/Vol] 8.7 g/dL Low 12.0-15.0 [facility] Comment on above: Performed By: #### L [id number] ####[facility] ([facility])[address] [place] [address] Immature granulocytes (Bld) [#/Vol] 0.06 10*3/uL Normal 0.00-0.20 [facility] Comment on above: Performed By: #### L [id number] ####[facility] ([facility])[address] [place] [address] Immature granulocytes/100 WBC (Bld) 1.0 % Normal 0.0-1.0 [facility] Comment on above: Performed By: #### L [id number] ####[facility] ([facility])[address] [place] [address] Lymphocytes (Bld) [#/Vol] 1.28 10*3/uL Normal 1.20-4.00 [facility] Comment on above: Performed By: #### L [id number] ####[facility] ([facility])[address] [place] [address] Lymphocytes/100 WBC (Bld) 20.4 % Normal 20.0-45.0 [facility] Comment on above: Performed By: #### L [id number] ####[facility] ([facility])[address] [place] [address] MCH (RBC) [Entitic mass] 31.3 pg Normal 27.0-33.0 [facility] Comment on above: Performed By: #### L [id number] ####[facility] ([facility])[address] [place], [place] [address] MCV (RBC) [Entitic vol] 99.3 fL High 82.0-98.0 [facility] Comment on above: Performed By: #### L [id number] ####[facility] ([facility])[address] [place] [address] Monocytes (Bld) [#/Vol] 0.54 10*3/uL Normal 0.10-1.00 [facility] Comment on above: Performed By: #### L [id number] ####[facility] ([facility])[address] [place] [address] Monocytes/100 WBC (Bld) 8.6 % Normal 5.0-12.0 [facility] Comment on above: Performed By: #### L [id number] ####[facility] ([facility])[address] [place] [address] Neutrophils (Bld) [#/Vol] 4.24 10*3/uL Normal 1.60-7.60 [facility] Comment on above: Performed By: #### L [id number] ####[facility] ([facility])[address] [place] [address] Neutrophils/100 WBC (Bld) 67.8 % Normal 40.0-72.0 [facility] Comment on above: Performed By: #### L [id number] ####[facility] ([facility])[address] [place] [address] NRBC (PER 100 WBCS) BY AUTOMATED COUNT 0.0 % Normal 0 [facility] Comment on above: Performed By: #### L [id number] ####[facility] ([facility])[address] [place] [address] PLATELETS (10*3/UL) IN BLOOD AUTOMATED COUNT 268 10*3/uL Normal 150-400 [facility] Comment on above: Performed By: #### L [id number] ####[facility] ([facility])[address] [place] [address] RBC (Bld) [#/Vol] 2.78 10*6/uL Low 3.80-5.00 [facility] Comment on above: Performed By: #### L [id number] ####[facility] ([facility])[address] [place] [address] WBC (Bld) [#/Vol] 6.26 10*3/uL Normal 4.00-10.60 [facility] Comment on above: Performed By: #### L [id number] ####[facility] ([facility])[address] [place] [address] CONSULTon 07-29-2023 CONSULT ----- ----- Attestation signed by Rinku Tan MD at 07/29/2023 8:52 PM I personally saw and examined the patient on the same date of service as resident, Dr. Villavicencio. I discussed the findings and therapeutic plan with the resident and agree with the documentation. Pt had tecent admission to [facility] in for Renetta and hypervolemia, her s.cr was >4 on 07/28/23, we discussed potential need to start [employer] given hypervolemia and uremic symptoms (N/v, confusion [...] gastric bypass surgery who initially presented to [facility] with concerns for worsening lower extremity edema, after gaining 50 pounds within past week. Patient was evaluated by PCP who increased Bumex dose from 1 mg TID to 3 mg TID but patient had no improvement in symptoms. On presentation to [place], patient's creatinine was 4.55 (baseline 1.8-2), phosphorus 11.2, potassium 5.7, magnesium 1.8, hemoglobin 9.2 and BUN 122. Patient was initiated on Bumex drip but developed hypotension and was changed to IV pushes. Patient was subsequently transferred to [facility] Upon assessment at [facility], patient has downtrend in Cr to 3.64, [...] (L) 07/29 (more content not included)... Normal [facility] CONSULT ----- ----- Attestation signed by Chelly Martinez MD at 07/29/2023 3:45 PM I personally saw and examined the patient on the same date of service as resident/fellow Dr Lowery. I discussed the findings and therapeutic plan with the resident/fellow Dr Lowery. I agree with the documentation, except for any edits/updates below. Teaching Physician's Revisions: Chelly Martinez MD, MPH, [facility], [facility], [facility] Interventional Cardiology Pager Email: [email or web address] ----- Cardiology Consult Note Reason for Consult: Bilaterally worsening lower extremity edema with orthopnea, concerning for heart failure exacerbation. HPI: Mabel Moser is a 63 y.o. female with PMH of alpha-1 antitrypsin carrier, HFpEF, CKD 3A, HTN, GERD, hypothyroidism, CVA, seizures, DVT (on Eliquis at home), morbid obesity s/p gastric bypass surgery who initially presented to [facility] with concerns for bilateral worsening lower extremity edema. As per patient, she gained 50 pounds of weight within a week. She saw her PCP who increased her Bumex dose from 1 mg 3 times daily to 3 mg 3 times daily but despite that patient had no improvement in her pedal edema. On presentation to [facility], patient's creatinine was 4.55 (baseline 1.8-2), phosphorus 11.2, potassium 5.7, magnesium 1.8, hemoglobin 9.2 and BUN 122. She was initiated on Bumex drip but developed hypotension and hence it was changed to IV pushes. Her chest x-ray was negative and there was no DVT diagnosed on duplex ultrasound. She was then transferred to [facility]. At [facility], her creatinine did improved slightly to 3.64, hemoglobin 8.5, troponin 0.01, BNP 265. She was initiated on IV Lasix 80 mg 3 times daily. Patient tells me that she did have a TTE performed at [facility] 2 months back but there are no [...] in the past she was admitted to [facility] in 2019 with fluid overload [...] Anxiety, Arthritis, Asthma, CHF (congestive heart failure) ([facility]), Coronary artery disease, Depression, Gastroenteritis, Heart valve disease, Hypertension, Kidney failure, Lumbar spondylolysis, and Stroke ([facility]). Surgical History She has a past surgical [...] unknown: Yes (more content not included)... Normal [facility] CREATININE, URINE, RANDOMon 07-29-2023 Creatinine (U) [Mass/Vol] 17.0 mg/dL Low 26-299 [facility] Comment on above: Performed By: #### L [id number] #### [facility] ([facility]) [address] [place] [address] HEMOGLOBIN A1Con 07-29-2023 Glucose [Mass/Vol] 82 mg/dL Normal [facility] Comment on above: Performed By: #### L [id number] #### [facility] ([facility]) [address] [place] [address] HbA1c (Bld) [Mass fraction] 4.5 % Normal 4.0-6.0 [facility] Comment on above: Performed By: #### L [id number] #### [facility] ([facility]) [address] [place] [address] HEPATIC FUNCTION PANELon Albumin [Mass/Vol] 3.3 g/dL Low 3.5-5.7 [facility] Comment on above: Performed By: #### L [id number] ####[facility] ([facility])[address] [place] [address] Performed By: #### L [id number] #### [facility] ([facility]) [address] [place] [address] ALP [Catalytic activity/Vol] 150 U/L High 34-104 [facility] Comment on above: Performed By: #### L [id number] ####[facility] ([facility])[address] [place] [address] ALT [Catalytic activity/Vol] 19 U/L Normal 7-52 [facility] Comment on above: Performed By: #### L [id number] ####[facility] ([facility])[address] [place] [address] AST [Catalytic activity/Vol] 24 U/L Normal 13-39 [facility] Comment on above: Performed By: #### L [id number] ####[facility] ([facility])[address] [place] [address] Bilirubin [Mass/Vol] 0.3 mg/dL Normal 0.3-1.0 [facility] Comment on above: Performed By: #### L [id number] ####[facility] ([facility])[address] [place] [address] Magnesium [Mass/Vol] 0.1 mg/dL Normal 0-0.2 [facility] Comment on above: Performed By: #### L [id number] ####[facility] ([facility])[address] [place] [address] Protein [Mass/Vol] 5.6 g/dL Low 6.0-8.3 [facility] Comment on above: Performed By: #### L [id number] ####[facility] ([facility])[address] [place] [address] LIPID PANELon 07-29-2023 CHOL/HDL 2.0 mg/dL Normal [facility] Comment on above: Performed By: #### L [id number] ####[facility] ([facility])[address] [place] [address] Cholesterol [Mass/Vol] 155 mg/dL Normal 120-200 [facility] Comment on above: Performed By: #### L [id number] ####[facility] ([facility])[address] [place] [address] Magnesium [Mass/Vol] 46 mg/dL Normal 40-149 [facility] Comment on above: Result Comment: TRIG LYCERIDE REFERENCE RANGE: 20 YEARS AND OLDER CARDIOVASCULAR RISK LESS THAN 150 mg/dL LOW RISK 150 TO 199 mg/dL BORDERLINE RISK 200 mg/dL AND GREATER HIGH RISK Performed By: #### L [id number] ####[facility] [place] [address] Magnesium [Mass/Vol] 67 mg/dL Normal 0-160 [facility] Comment on above: Performed By: #### L [id number] ####[facility] ([facility])[address] [place] [address] Magnesium [Mass/Vol] 79 mg/dL Normal 23-92 [facility] Comment on above: Performed By: #### L [id number] ####[facility] ([facility])[address] [place] [address] NON HDL CHOL. (LDL+VLDL) 76 Normal [facility] Comment on above: Performed By: #### L [id number] ####[facility] ([facility])[address] [place] [address] TOTAL VLDL-C 9 mg/dL Normal 0-40 [facility] Comment on above: Performed By: #### L [id number] ####[facility] ([facility])[address] [place] [address] MAGNESIUMon 07-29-2023 Magnesium [Mass/Vol] 2.0 mg/dL Normal 1.9-2.7 [facility] Comment on above: Performed By: #### L [id number] ####[facility] ([facility])[address] [place] [address] PROTIME-INRon 07-29-2023 INR IN PPP BY COAGULATION ASSAY 1.15 High 0.90-1.10 [facility] Comment on above: Result Comment: ACCC P [...] RANGE. CHEST 1995;[id number]. Performed By: #### L [id number] #### [facility] ([facility]) [address] [place] [address] PROTHROMBIN TIME (PT) IN PPP BY COAGULATION ASSAY 14.8 Seconds Normal 12.3-14.8 [facility] Comment on above: Performed By: #### L [id number] #### [facility] ([facility]) [address] [place] [address] TSH3 REFLEX TO FT4on 024 THYROTROPIN (MIU/L) IN SER/PLAS BY DETECTION LIMIT <= 0.05 MIU/L 1.50 mIU/L Normal 0.34-5.60 [facility] Comment on above: Performed By: #### L [id number] #### [facility] ([facility]) [address] [place] [address] B-TYPE NATRIURETIC PEPTIDEon 07-28-2023 Natriuretic peptide B (Bld) [Mass/Vol] 265 pg/mL High 0-100 [facility] Comment on above: Performed By: #### L [id number] #### [facility] ([facility]) [address] [place] [address] BASIC METABOLIC PANELon Anion gap [Moles/Vol] 15 mmol/L Normal 7-20 [facility] Comment on above: Performed By: #### L [id number] ####[facility] ([facility])[address] [place] [address] Calcium [Mass/Vol] 7.3 mg/dL Low 8.6-10.3 [facility] Comment on above: Performed By: #### L [id number] ####[facility] ([facility])[address] [place] [address] Chloride [Moles/Vol] 105 mmol/L Normal 98-107 [facility] Comment on above: Performed By: #### L [id number] ####[facility] ([facility])[address] [place] [address] CO2 [Moles/Vol] 20 mmol/L Low 21-31 [facility] Comment on above: Performed By: #### L [id number] ####[facility] ([facility])[address] [place] [address] Creatinine [Mass/Vol] 3.64 mg/dL High 0.60-1.20 [facility] Comment on above: Performed By: #### L [id number] ####[facility] ([facility])[address] [place] [address] GLOMERULAR FILTRATION RATE ML/MIN/1.73 SQ M.PREDICTED 13.6 mL/min/1.73m*2 Low >60.0 [facility] Comment on above: Result Comment: [facility]???s estimated glomerular filtration rate (eGFR) will no [...] of individuals. Performed By: #### L [id number] ####[facility] ([facility])[address] [place] [address] Glucose [Mass/Vol] 80 mg/dL Normal 70-100 [facility] Comment on above: Performed By: #### L [id number] ####[facility] ([facility])[address] [place] [address] Potassium [Moles/Vol] 5.7 mmol/L High 3.5-5.1 [facility] Comment on above: Performed By: #### L [id number] ####[facility] ([facility])[address] [place] [address] Sodium [Moles/Vol] 134 mmol/L Low 136-145 [facility] Comment on above: Performed By: #### L [id number] ####[facility] ([facility])[address] [place] [address] Urea nitrogen [Mass/Vol] 109 mg/dL High 7-25 [facility] Comment on above: Performed By: #### L [id number] ####[facility] ([facility])[address] [place] [address] UREA NITROGEN/CREATININE (MASS RATIO) IN SER/PLAS 29.9 Normal [facility] Comment on above: Performed By: #### L [id number] ####[facility] ([facility])[address] [place] [address] CBC WITH AUTO DIFFERENTIALon 07-28-2023 Basophils (Bld) [#/Vol] 0.02 10*3/uL Normal 0.00-0.20 [facility] Comment on above: Performed By: #### L [id number] ####[facility] ([facility])[address] [place] [address] Basophils/100 WBC (Bld) 0.3 % Normal 0.0-1.0 [facility] Comment on above: Performed By: #### L [id number] ####[facility] ([facility])[address] [place] [address] Eosinophils (Bld) [#/Vol] 0.07 10*3/uL Normal 0.00-0.50 [facility] Comment on above: Performed By: #### L [id number] ####[facility] [place] [address] Eosinophils/100 WBC (Bld) 1.1 % Normal 0.0-6.0 [facility] Comment on above: Performed By: #### L [id number] ####[facility] [place] [address] Erythrocyte distribution width (RBC) [Ratio] 13.5 % Normal 11.5-15.0 [facility] Comment on above: Performed By: #### L [id number] ####[facility] ([facility])[address] [place] [address] ERYTHROCYTE MEAN CORPUSCULAR HEMOGLOBIN CONCENTRATION (G/DL) BY AUTOMATED 31.0 g/dL Low 32.0-35.0 [facility] Comment on above: Performed By: #### L [id number] ####[facility] ([facility])[address] [place] [address] Hematocrit (Bld) [Volume fraction] 27.4 % Low 36.0-48.0 [facility] Comment on above: Performed By: #### L [id number] ####[facility] ([facility])[address] [place] [address] Hemoglobin (Bld) [Mass/Vol] 8.5 g/dL Low 12.0-15.0 [facility] Comment on above: Performed By: #### L [id number] ####[facility] ([facility])[address] [place] [address] Immature granulocytes (Bld) [#/Vol] 0.05 10*3/uL Normal 0.00-0.20 [facility] Comment on above: Performed By: #### L [id number] ####[facility] ([facility])[address] [place] [address] Immature granulocytes/100 WBC (Bld) 0.8 % Normal 0.0-1.0 [facility] Comment on above: Performed By: #### L [id number] ####[facility] ([facility])[address] [place] [address] Lymphocytes (Bld) [#/Vol] 0.83 10*3/uL Low 1.20-4.00 [facility] Comment on above: Performed By: #### L [id number] ####[facility] ([facility])[address] [place] [address] Lymphocytes/100 WBC (Bld) 13.0 % Low 20.0-45.0 [facility] Comment on above: Performed By: #### L [id number] ####[facility] ([facility])[address] [place] [address] MCH (RBC) [Entitic mass] 30.7 pg Normal 27.0-33.0 [facility] Comment on above: Performed By: #### L [id number] ####[facility] ([facility])[address] [place] [address] MCV (RBC) [Entitic vol] 98.9 fL High 82.0-98.0 [facility] Comment on above: Performed By: #### L [id number] ####[facility] ([facility])[address] [place] [address] Monocytes (Bld) [#/Vol] 0.45 10*3/uL Normal 0.10-1.00 [facility] Comment on above: Performed By: #### L [id number] ####[facility] ([facility])[address] [place] [address] Monocytes/100 WBC (Bld) 7.0 % Normal 5.0-12.0 [facility] Comment on above: Performed By: #### L [id number] ####[facility] ([facility])[address] [place] [address] Neutrophils (Bld) [#/Vol] 4.97 10*3/uL Normal 1.60-7.60 [facility] Comment on above: Performed By: #### L [id number] ####[facility] ([facility])[address] [place] [address] Neutrophils/100 WBC (Bld) 77.8 % High 40.0-72.0 [facility] Comment on above: Performed By: #### L [id number] ####[facility] ([facility])[address] [place] [address] NRBC (PER 100 WBCS) BY AUTOMATED COUNT 0.0 % Normal 0 [facility] Comment on above: Performed By: #### L [id number] ####[facility] ([facility])[address] [place] [address] PLATELETS (10*3/UL) IN BLOOD AUTOMATED COUNT 245 10*3/uL Normal 150-400 [facility] Comment on above: Performed By: #### L [id number] ####[facility] ([facility])[address] [place] [address] RBC (Bld) [#/Vol] 2.77 10*6/uL Low 3.80-5.00 [facility] Comment on above: Performed By: #### L [id number] ####[facility] ([facility])[address] [place] [address] WBC (Bld) [#/Vol] 6.39 10*3/uL Normal 4.00-10.60 [facility] Comment on above: Performed By: #### L [id number] ####[facility] ([facility])[address] [place] [address] FERRITINon 07-28-2023 FERRITIN (NG/ML) IN SER/PLAS 53.0 ng/mL Normal 11.0-307.0 [facility] Comment on above: Performed By: #### L [id number] #### [facility] ([facility]) [address] [place] [address] FOLATEon 07-28-2023 FOLATE (NG/ML) IN SER/PLAS 8.99 ng/mL Normal 6.6-1000 [facility] Comment on above: Performed By: #### L [id number] ####[facility] ([facility])[address] [place] [address] IRON AND TIBCon 07-28-2023 IRON (UG/DL) IN SER/PLAS 53 ug/dL Normal 50-212 [facility] Comment on above: Performed By: #### L [id number] ####[facility] ([facility])[address] [place] [address] IRON BINDING CAPACITY (UG/DL) IN SER/PLAS 285 ug/dL Normal 250-450 [facility] Comment on above: Performed By: #### L [id number] ####[facility] ([facility])[address] [place] [address] IRON BINDING CAPACITY.UNSATURATED (UG/DL) IN SER/PLAS 232.0 ug/dL Normal 155.0-355.0 [facility] Comment on above: Performed By: #### L [id number] ####[facility] ([facility])[address] [place] [address] IRON SATURATION (%) IN SER/PLAS 19 % Low 20-50 [facility] Comment on above: Performed By: #### L [id number] ####[facility] ([facility])[address] [place] [address] MAGNESIUMon 07-28-2023 Magnesium [Mass/Vol] 1.6 mg/dL Low 1.9-2.7 [facility] Comment on above: Performed By: #### L [id number] ####[facility] [place] [address] RETICULOCYTE PANELon 024 HEMOGLOBIN (PG) IN RETICULOCYTES 33.8 pg Normal 28.0-36.0 [facility] Comment on above: Performed By: #### L [id number] ####[facility] [place] [address] IMMATURE RETICULOCYTE FRACTION (%) 8.5 % Normal 2-16 [facility] Comment on above: Performed By: #### L [id number] ####[facility] ([facility])[address] [place] [address] RETICULOCYTES (10*6/UL) IN BLOOD 0.0535 10*6/uL Normal 0.0250-0.100 0 [facility] Comment on above: Performed By: #### L [id number] ####[facility] ([facility])[address] [place] [address] Reticulocytes/100 RBC (Bld) 1.96 % High 0.50-1.80 [facility] Comment on above: Performed By: #### L [id number] ####[facility] ([facility])[address] [place] [address] TROPONIN Ion 07-28-2023 Troponin I.cardiac [Mass/Vol] 0.01 ng/mL Normal 0.00-0.04 [facility] Comment on above: Performed By: #### L [id number] #### [facility] ([facility]) [address] [place] [address] URINALYSIS MICROSCOPIC WITH REFLEX CULTUREon 07-28-2023 CASTS IN URINE Normal [facility] Comment on above: Performed By: #### L [id number] #### [facility] ([facility]) [address] [place] [address] CRYSTALS IN URINE Normal [facility] Comment on above: Performed By: #### L [id number] #### [facility] ([facility]) [address] [place] [address] MUCUS (#/HPF) IN URINE SEDIMENT Occasional Normal None Seen, Occasional, Few [facility] Comment on above: Performed By: #### L [id number] #### [facility] ([facility]) [address] [place] [address] OTHER MICROSCOPIC ELEMENTS Normal [facility] Comment on above: Performed By: #### L [id number] #### [facility] ([facility]) [address] [place] [address] RBC (#/HPF) IN URINE SEDIMENT None Seen Normal None Seen [facility] Comment on above: Performed By: #### L [id number] #### [facility] ([facility]) [address] [place] [address] SQUAMOUS EPITHELIAL CELLS (#/HPF) IN URINE SEDIMENT Few Abnormal None Seen, Occasional [facility] Comment on above: Performed By: #### L [id number] #### [facility] ([facility]) [address] [place] [address] WBC (LEUKOCYTE) (#/HPF) IN URINE SEDIMENT 0-2 Abnormal None Seen [facility] Comment on above: Performed By: #### L [id number] #### [facility] ([facility]) [address] [place] [address] URINALYSIS WITH REFLEX CULTU REon 07-28-2023 BILIRUBIN, TOTAL PRESENCE IN URINE Negative Normal Negative [facility] Comment on above: Performed By: #### L [id number] ####[facility] ([facility])[address] [place] [address] Clarity (U) Clear Normal Clear [facility] Comment on above: Performed By: #### L [id number] ####[facility] ([facility])[address] [place] [address] Color (U) Straw Abnormal Yellow [facility] Comment on above: Performed By: #### L [id number] ####[facility] ([facility])[address] [place] [address] Glucose (U) [Mass/Vol] Negative Normal Negative [facility] on above: Performed By: #### L [id number] ####[facility] ([facility])[address] [place] [address] HEMOGLOBIN PRESENCE IN URINE Small Abnormal Negative [facility] Comment on above: Performed By: #### L [id number] ####[facility] ([facility])[address] [place] [address] Ketones Ql (U) Negative Normal Negative [facility] Comment on above: Performed By: #### L [id number] ####[facility] ([facility])[address] [place] [address] LEUKOCYTE ESTERASE PRESENCE IN URINE BY TEST STRIP Negative Normal Negative [facility] Comment on above: Performed By: #### L [id number] ####[facility] ([facility])[address] [facility] [place] [address] NITRITE PRESENCE IN URINE Negative Normal Negative [facility] Comment on above: Performed By: #### L [id number] ####[facility] ([facility])[address] [place] [address] pH (U) 5.0 [pH] Normal 5.0-8.0 [facility] Comment on above: Performed By: #### L [id number] ####[facility] ([facility])[address] [place] [address] Protein (U) [Mass/Vol] Negative Normal Negative [facility] Comment on above: Performed By: #### L [id number] ####[facility] ([facility])[address] [place] [place] [address] Specific gravity (U) [Rel density] 1.011 Low 1.015-1.020 [facility] Comment on above: Performed By: #### L [id number] ####[facility] ([facility])[address] [place] [address] VENOUS BLOOD GAS WITH IONIZE D CALCIUMon 07-28-2023 Base excess Calc (BldV) [Moles/Vol] -7.1000 mmol/L Normal [facility] Comment on above: Performed By: #### L [id number] #### [facility] [address] [place] [address] CALCIUM IONIZED (MMOL/L) IN BLOOD 1.03 mmol/L Low 1.15-1.33 [facility] Comment on above: Performed By: #### L [id number] #### [facility] ([facility]) [address] [address] CO2 (BldV) [Partial pressure] 41 mm[Hg] Normal 40-50 [facility] Comment on above: Performed By: #### L [id number] #### [facility] ([facility]) [address] [place] [address] HCO3 (Bld) [Moles/Vol] 19.3 mmol/L [facility] Comment on above: Performed By: #### L [id number] #### [facility] ([facility]) [address] [place] [address] Oxygen (BldV) [Partial pressure] 42 mm[Hg] Normal 35-45 [facility] Comment on above: Performed By: #### L [id number] #### [facility] ([facility]) [address] [place] [address] OXYGEN SATURATION (%) IN VENOUS BLOOD 70.5 % Normal 65.0-75.0 [facility] Comment on above: Performed By: #### L [id number] #### [facility] ([facility]) [address] [place] [address] PH OF VENOUS BLOOD 7.28 Low 7.31-7.41 [facility] nasir [facility] Comment on above: Performed By: #### L [id number] #### [facility] ([facility]) [address] [place] [address] Office Visiton 07-13-2023 Follow-up visit [id number] Loren Moser 1960 F Date Provider Department Center 07/13/2023 BENJIE LERMA Family History Family history unknown: Yes Level of Service:80419 [place] OFFICE/OUTPATIENT ESTABLISHED LOW MDM 20 MIN Normal [facility] Absolute reticulocyte countO rdered By: Los Grissom on 07-03-2023 Reticulocytes (Bld) [#/Vol] 0.039 10*6/uL 0.024-0.084 [facility] Basic Metabolic Panelon Creatinine Clr Calc Pharmacy 25.88 [facility] Comment on above: Performed By: #### V [id number], MG, BMP, JOSE, FE and TIBC, RETIC #### [facility] [address] [place] [address] [place] GFR/1.73 sq M.predicted MDRD (S/P/Bld) [Vol rate/Area] 23.348 mL/min/{1.73_m2} [facility] Comment on above: Performed By: #### V [id number], MG, BMP, JOSE, FE and TIBC, RETIC #### [facility] [address] [place] [address] [place] Calcium [Mass/volume] in Ser um or PlasmaOrdered By: Jim Randhawa on 07-03-2023 Calcium [Mass/Vol] 8.3 mg/dL Low 8.6-10.3 [facility] Comment on above: Performed By: #### V [id number], MG, BMP, JOSE, FE and TIBC, RETIC #### [facility] [address] Carbon dioxide, total [Moles /volume] in Serum or PlasmaOrdered By: Jim Randhawa on 07-03-2023 CO2 [Moles/Vol] 20.4 mmol/L Low 21.0-31.0 [facility] Comment on above: Performed By: #### V [id number], MG, BMP, JOSE, FE and TIBC, RETIC #### [facility] [address] [place] [address] Chloride [Moles/volume] in S andrea or PlasmaOrdered By: Jim Randhawa on 07-03-2023 Chloride [Moles/Vol] 106 mmol/L Normal 98-107 [facility] Comment on above: Performed By: #### V [id number], MG, BMP, JOSE, FE and TIBC, RETIC #### [facility] [address] [place] [address] Creatinine [Mass/volume] in Serum or PlasmaOrdered By: Jim Randhawa on 07-03-2023 Creatinine [Mass/Vol] 2.32 mg/dL High 0.60-1.20 [facility] Comment on above: Performed By: #### V [id number], MG, BMP, JOSE, FE and TIBC, RETIC #### [facility] [address] [place] [address] E[facility] echo transthoracicon ECH echo transthoracic [facility] Main [place] [address] [place] [address] Echocardiogram Signed Patient: Mabel Moser MR#: [id number] : 1960 Acct:[id number] Age/Sex: 63 / F ADM Date: 06/29/23 Loc: Room: [address] [place] [address] Type: DIS IN Attending Dr: Jim Randhawa DO Ordering Provider: Jim Randhawa DO Date of Service: 01/01/16/859 [facility] echo transthoracic: swelling Copies to: MD Jim [...] FS: 40.8 % Ao root area: 7.8 [id number] ap4: 8.4 cm TAPSE: 2.6 cm EDV(Teich): [...] By: Benjie Leach MD 07/03/23 1445 Normal [facility] Ferritin [Mass/volume] in Se rum or PlasmaOrdered By: Los Grissom on 07-03-2023 Ferritin [Mass/Vol] 71.9 ng/mL Normal 11.0-306.8 [facility] Comment on above: Performed By: #### V [id number], MG, BMP, JOSE, FE and TIBC, RETIC #### [facility] [address] [place] [id number] [place] Folate [Mass/volume] in Seru m or PlasmaOrdered By: Los Grissom on 07-03-2023 Folate [Mass/Vol] 11.1 ng/mL >5.9 [facility] Comment on above: Folate reference ran ge: >5.9 ng/mlThe WHO technical consultation on folate and vitamin [id number] has determined that folate concentrations lessthan 4 ng/ml are considered deficient. Glucose [Mass/volume] in Ser um or PlasmaOrdered By: Jim Randhawa on 07-03-2023 Glucose [Mass/Vol] 99 mg/dL Normal 70-100 [facility] Comment on above: ADA recommended refe rence rangeRandom Glucose Reference Range is dependent on time and content of last meal. Glucose of more than 200 mg/dL in a nonstressed, ambulatory subject supports the diagnosis of Diabetes Mellitus. Result Comment: [place] [facility] Glucose Reference Range is dependent on time and content of last meal. Glucose of more than 200 mg/dL in a nonstressed, ambulatory subject supports the diagnosis of Diabetes Mellitus. ADA recommended reference range Performed By: #### V [id number], MG, BMP, JOSE, FE and TIBC, RETIC #### [facility] [address] [place] [address] [place] Iron [Mass/volume] in Serum or PlasmaOrdered By: Los Grissom on 07-03-2023 Iron [Mass/Vol] 59 ug/dL Normal 50-212 [facility] Comment on above: Performed By: #### V [id number], MG, BMP, JOSE, FE and TIBC, RETIC #### [facility] [address] Iron and TIBC Profileon % Iron Saturation 22.8 % Normal 20-50 [facility] Comment on above: Performed By: #### V [id number], MG, BMP, JOSE, FE and TIBC, RETIC #### [facility] [address] Total Iron Binding Capacity 259 ug/dL Normal 255-450 [facility] Comment on above: Performed By: #### V [id number], MG, BMP, JOSE, FE and TIBC, RETIC #### [facility] [address] Iron binding capacity [Mass/ volume] in Serum or PlasmaOrdered By: Los Grissom on 07-03-2023 Iron binding capacity [Mass/Vol] 259 ug/dL 255-450 [facility] Iron saturation [Mass Fracti on] in Serum or PlasmaOrdered By: Los Grissom on 07-03-2023 Iron saturation [Mass fraction] 22.8 % 20-50 [facility] Magnesium [Mass/volume] in S andrea or PlasmaOrdered By: Jim Randhawa on 07-03-2023 Magnesium [Mass/Vol] 2.0 mg/dL Normal 1.9-2.7 [facility] Comment on above: Performed By: #### V [id number], MG, BMP, JOSE, FE and TIBC, RETIC #### [facility] [address] No Panel InformationOrdered By: Jim Randhawa on 07-03-2023 Estimated GFR (CKD-EPI) 23.348 mL/Min [facility] Creatinine Clearance (Chem 25.88 [facility] Potassium [Moles/volume] in Serum or PlasmaOrdered By: Jim Randhawa on 07-03-2023 Potassium [Moles/Vol] 3.9 mmol/L Normal 3.5-5.1 [facility] Comment on above: Performed By: #### V [id number], MG, BMP, JOSE, FE and TIBC, RETIC #### [facility] [address] Reticulocyte Counton 024 Reticulocyte Number 0.039 10*6/uL Normal 0.024-0.084 [facility] Comment on above: Result Comment: PERF ORMED BY: [place] [address] PATHOLOGIST SHIPPING RECEIVING CLERK TANNER GAVIN M.D. Performed By: #### V [id number], MG, BMP, JOSE, FE and TIBC, RETIC #### [address] Reticulocyte Percent 1.5 % Normal 0.5-1.5 [facility] Comment on above: Performed By: #### V [id number], MG, BMP, JOSE, FE and TIBC, RETIC #### [place] [address] [place] Reticulocytes/100 RBC Auto ( Bld)Ordered By: Los Grissom on 07-03-2023 Reticulocytes/100 RBC (Bld) 1.5 % 0.5-1.5 [facility] Serum or plasma anion gap de terminationOrdered By: Jim Randhawa on 07-03-2023 Anion gap [Moles/Vol] 11.5 mmol/L Normal 6.0-15.0 [facility] Comment on above: Performed By: #### V [id number], MG, BMP, JOSE, FE and TIBC, RETIC #### [facility] [address] [place] [address] [place] Sodium [Moles/volume] in Ser um or PlasmaOrdered By: Jim Randhawa on 07-03-2023 Sodium [Moles/Vol] 134 mmol/L Low 136-145 [facility] Comment on above: Performed By: #### V [id number], MG, BMP, JOSE, FE and TIBC, RETIC #### [facility] [address] [place] [address] Transferrin [Mass/volume] in Serum or PlasmaOrdered By: Los Grissom on 07-03-2023 Transferrin [Mass/Vol] 185 mg/dL Low 203-362 [facility] Comment on above: Performed By: #### V [id number], MG, BMP, JOSE, FE and TIBC, RETIC #### [address] Urea nitrogen [Mass/volume] in Serum or PlasmaOrdered By: Jim Randhawa on 07-03-2023 Urea nitrogen [Mass/Vol] 95 mg/dL High 7- [facility] Comment on above: Performed By: #### V [id number], MG, BMP, JOSE, FE and TIBC, RETIC #### [address] Vit. B12/Folate Profileon Folate 11.1 ng/mL Normal >5.9 [facility] Comment on above: Result Comment: Sandra te reference range: >5.9 ng/ml The WHO technical consultation on folate and vitamin b12 deficiencies has determined that folate concentrations less than 4 ng/ml are considered deficient. PERFORMED BY: [place] [address] PATHOLOGIST SHIPPING RECEIVING CLERK TANNER GAVIN M.D. Performed By: #### V [id number], MG, BMP, JOSE, FE and TIBC, RETIC #### [address] Vitamin B12 ser/plasOrdered By: Los Grissom on 07-03-2023 Cobalamin (Vitamin B12) [Mass/Vol] 3564 pg/mL High 180-914 [facility] Comment on above: Performed By: #### V [id number], MG, BMP, JOSE, FE and TIBC, RETIC #### [address] Basic Metabolic Panelon Anion gap [Moles/Vol] 11.0 mmol/L Normal 6.0-15.0 [facility] Comment on above: Performed By: #### V [id number], MG, BMP, JOSE, FE and TIBC, RETIC #### [address] Calcium [Mass/Vol] 8.4 mg/dL Low 8.6-10.3 [facility] Comment on above: Performed By: #### V [id number], MG, BMP, JOSE, FE and TIBC, RETIC #### [address] Chloride [Moles/Vol] 104 mmol/L Normal 98-107 [facility] Comment on above: Performed By: #### V [id number], MG, BMP, JOSE, FE and TIBC, RETIC #### [address] CO2 [Moles/Vol] 20.2 mmol/L Low 21.0-31.0 [facility] Comment on above: Performed By: #### V [id number], MG, BMP, JOSE, FE and TIBC, RETIC #### [address] Creatinine [Mass/Vol] 2.31 mg/dL High 0.60-1.20 [facility] Comment on above: Performed By: #### V [id number], MG, BMP, JOSE, FE and TIBC, RETIC #### [address] Creatinine Clr Calc Pharmacy 26.22 [facility] Comment on above: Performed By: #### V [id number], MG, BMP, JOSE, FE and TIBC, RETIC #### [address] GFR/1.73 sq M.predicted MDRD (S/P/Bld) [Vol rate/Area] 23.469 mL/min/{1.73_m2} [facility] Comment on above: Performed By: #### V [id number], MG, BMP, JOSE, FE and TIBC, RETIC #### [address] Glucose [Mass/Vol] 89 mg/dL Normal 70-100 [facility] Comment on above: Result Comment: [facility] Glucose Reference Range is dependent on time and content of last meal. Glucose of more than 200 mg/dL in a nonstressed, ambulatory subject supports the diagnosis of Diabetes Mellitus. ADA recommended reference range Performed By: #### V [id number], MG, BMP, JOSE, FE and TIBC, RETIC #### [address] Potassium [Moles/Vol] 4.2 mmol/L Normal 3.5-5.1 [facility] Comment on above: Performed By: #### V [id number], MG, BMP, JOSE, FE and TIBC, RETIC #### [address] Sodium [Moles/Vol] 131 mmol/L Low 136-145 [facility] Comment on above: Performed By: #### V [id number], MG, BMP, JOSE, FE and TIBC, RETIC #### [address] Urea nitrogen [Mass/Vol] 100 mg/dL High 7-25 [facility] Comment on above: Performed By: #### V [id number], MG, BMP, JOSE, FE and TIBC, RETIC #### [address] Erythrocyte distribution wid th Auto (RBC) [Ratio]Ordered By: Jim Randhawa on 07-02-2023 Erythrocyte distribution width (RBC) [Ratio] 14.2 % 11.9-15.3 [facility] Hematocrit Auto (Bld) [Volum e fraction]Ordered By: Jim Randhawa on 07-02-2023 Hematocrit (Bld) [Volume fraction] 25.0 % 34.0-46.4 [facility] Hemoglobin [Mass/volume] in BloodOrdered By: Jim Randhawa on 07-02-2023 Hemoglobin (Bld) [Mass/Vol] 8.4 g/dL 11.8-15.4 [facility] Hemogram CBC Without Diffon 07-02-2023 Erythrocyte distribution width (RBC) [Ratio] 14.2 % Normal 11.9-15.3 [facility] Comment on above: Performed By: #### V [id number], MG, BMP, JOSE, FE and TIBC, RETIC #### [address] Hematocrit (Bld) [Volume fraction] 25.0 % Low 34.0-46.4 [facility] Comment on above: Performed By: #### V [id number], MG, BMP, JOSE, FE and TIBC, RETIC #### [address] Hemoglobin (Bld) [Mass/Vol] 8.4 g/dL Low 11.8-15.4 [facility] Comment on above: Performed By: #### V [id number], MG, BMP, JOSE, FE and TIBC, RETIC #### [address] MCH (RBC) [Entitic mass] 32.3 pg Normal 24.7-34.3 [facility] Comment on above: Performed By: #### V [id number], MG, BMP, JOSE, FE and TIBC, RETIC #### [address] MCV (RBC) [Entitic vol] 96.6 fL Normal 80-100 [facility] Comment on above: Performed By: #### V [id number], MG, BMP, JOSE, FE and TIBC, RETIC #### [address] Mean Corpuscular HGB Conc 33.4 g/dL Normal 32.0-35.0 [facility] Comment on above: Performed By: #### V [id number], MG, BMP, JOSE, FE and TIBC, RETIC #### [address] [place] [address] [place] Platelet mean volume (Bld) [Entitic vol] 7.7 fL Normal 6.3-10.7 [facility] Comment on above: Result Comment: PERF ORMED BY: [place] [address] PATHOLOGIST SHIPPING RECEIVING CLERK TANNER GAVIN M.D. Performed By: #### V [id number], MG, BMP, JOSE, FE and TIBC, RETIC #### [address] Platelets (Bld) [#/Vol] 217 10*3/uL Normal 150-450 [facility] Comment on above: Performed By: #### V [id number], MG, BMP, JOSE, FE and TIBC, RETIC #### [address] RBC (Bld) [#/Vol] 2.59 10*6/uL Low 3.60-5.00 [facility] Comment on above: Performed By: #### V [id number], MG, BMP, JOSE, FE and TIBC, RETIC #### [address] WBC (Bld) [#/Vol] 6.1 10*3/uL Normal 3.8-11.6 [facility] Comment on above: Performed By: #### V [id number], MG, BMP, JOSE, FE and TIBC, RETIC #### [address] Leukocytes [#/volume] correc nicol for nucleated erythrocytes in Blood by Automated counOrdered By: Jim Randhawa on 07-02-2023 WBC corrected for nucl RBC Auto (Bld) [#/Vol] 6.1 10*3/uL 3.8-11.6 [facility] MCH Auto (RBC) [Entitic mass ]Ordered By: Jim Randhawa on 07-02-2023 MCH (RBC) [Entitic mass] 32.3 pg 24.7-34.3 [facility] MCHC Auto (RBC) [Mass/Vol]Or dered By: Jim Randhawa on 07-02-2023 MCHC (RBC) [Mass/Vol] 33.4 g/dL 32.0-35.0 [facility] MCV Auto (RBC) [Entitic vol] Ordered By: Jim Randhawa on 07-02-2023 MCV (RBC) [Entitic vol] 96.6 fL 80-100 [facility] Magnesiumon 07-02-2023 Magnesium [Mass/Vol] 2.1 mg/dL Normal 1.9-2.7 [facility] Comment on above: Result Comment: PERF ORMED BY: [facility] [address] [facility] [place] [address] PATHOLOGIST SHIPPING RECEIVING CLERK TANNER GAVIN M.D. Performed By: #### V [id number], MG, BMP, JOSE, FE and TIBC, RETIC #### [facility] [address] Platelet mean volume Auto (B ld) [Entitic vol]Ordered By: Jim Randhawa on 07-02-2023 Platelet mean volume (Bld) [Entitic vol] 7.7 fL 6.3-10.7 [facility] Platelets Auto (Bld) [#/Vol] Ordered By: Jim Randhawa on 07-02-2023 Platelets (Bld) [#/Vol] 217 10*3/uL 150-450 [facility] RBC Auto (Bld) [#/Vol]Ordere d By: Jim Randhawa on 07-02-2023 RBC (Bld) [#/Vol] 2.59 10*6/uL 3.60-5.00 [facility] Basic Metabolic Panelon Anion gap [Moles/Vol] 11.9 mmol/L Normal 6.0-15.0 [facility] Comment on above: Order Comment: LINE DRAW Performed By: #### V [id number], MG, BMP, JOSE, FE and TIBC, RETIC #### [facility] [address] Calcium [Mass/Vol] 8.9 mg/dL Normal 8.6-10.3 [facility] Comment on above: Order Comment: LINE DRAW Performed By: #### V [id number], MG, BMP, JOSE, FE and TIBC, RETIC #### [facility] [address] Chloride [Moles/Vol] 108 mmol/L High 98-107 [facility] Comment on above: Order Comment: LINE DRAW Performed By: #### V [id number], MG, BMP, JOSE, FE and TIBC, RETIC #### [facility] [address] CO2 [Moles/Vol] 18.5 mmol/L Low 21.0-31.0 [facility] Comment on above: Order Comment: LINE DRAW Performed By: #### V [id number], MG, BMP, JOSE, FE and TIBC, RETIC #### [facility] [address] Creatinine [Mass/Vol] 2.63 mg/dL Significan t change up 0.60-1.20 [facility] Comment on above: Order Comment: LINE DRAW Performed By: #### V [id number], MG, BMP, JOSE, FE and TIBC, RETIC #### [address] Creatinine Clr Calc Pharmacy 23.09 [facility] Comment on above: Order Comment: LINE DRAW Performed By: #### V [id number], MG, BMP, JOSE, FE and TIBC, RETIC #### [place] [address] [place] GFR/1.73 sq M.predicted MDRD (S/P/Bld) [Vol rate/Area] 20.085 mL/min/{1.73_m2} [facility] Comment on above: Order Comment: LINE DRAW Performed By: #### V [id number], MG, BMP, JOSE, FE and TIBC, RETIC #### [address] Glucose [Mass/Vol] 128 mg/dL High 70-100 [facility] Comment on above: Order Comment: LINE DRAW Result Comment: [facility] Glucose Reference Range is dependent on time and content of last meal. Glucose of more than 200 mg/dL in a nonstressed, ambulatory subject supports the diagnosis of Diabetes Mellitus. ADA recommended reference range Performed By: #### V [id number], MG, BMP, JOSE, FE and TIBC, RETIC #### [facility] [address] Potassium [Moles/Vol] 4.4 mmol/L Normal 3.5-5.1 [facility] Comment on above: Order Comment: LINE DRAW Performed By: #### V [id number], MG, BMP, JOSE, FE and TIBC, RETIC #### [facility] [address] Sodium [Moles/Vol] 134 mmol/L Low 136-145 [facility] Comment on above: Order Comment: LINE DRAW Performed By: #### V [id number], MG, BMP, JOSE, FE and TIBC, RETIC #### [facility] [address] Urea nitrogen [Mass/Vol] 104 mg/dL High 7-25 [facility] Comment on above: Order Comment: LINE DRAW Performed By: #### V [id number], MG, BMP, JOSE, FE and TIBC, RETIC #### [facility] [address] Magnesiumon 07-01-2023 Magnesium [Mass/Vol] 2.3 mg/dL Normal 1.9-2.7 [facility] Comment on above: Order Comment: LINE DRAW Result Comment: PERF ORMED BY: [place] [address] PATHOLOGIST SHIPPING RECEIVING CLERK TANNER GAVIN M.D. Performed By: #### V [id number], MG, BMP, JOSE, FE and TIBC, RETIC #### [facility] [address] Basic Metabolic Panelon Anion gap [Moles/Vol] 14.6 mmol/L Normal 6.0-15.0 [facility] Comment on above: Performed By: #### V [id number], MG, BMP, JOSE, FE and TIBC, RETIC #### [address] Calcium [Mass/Vol] 8.6 mg/dL Normal 8.6-10.3 [facility] Comment on above: Performed By: #### V [id number], MG, BMP, JOSE, FE and TIBC, RETIC #### [address] Chloride [Moles/Vol] 109 mmol/L High 98-107 [facility] Comment on above: Performed By: #### V [id number], MG, BMP, JOSE, FE and TIBC, RETIC #### [address] CO2 [Moles/Vol] 15.0 mmol/L Low 21.0-31.0 [facility] Comment on above: Performed By: #### V [id number], MG, BMP, JOSE, FE and TIBC, RETIC #### [address] Creatinine [Mass/Vol] 3.16 mg/dL High 0.60-1.20 [facility] Comment on above: Performed By: #### V [id number], MG, BMP, JOSE, FE and TIBC, RETIC #### [facility] [address] [place] [address] Creatinine Clr Calc Pharmacy 19.26 [facility] Comment on above: Performed By: #### V [id number], MG, BMP, JOSE, FE and TIBC, RETIC #### [address] GFR/1.73 sq M.predicted MDRD (S/P/Bld) [Vol rate/Area] 16.114 mL/min/{1.73_m2} [facility] Comment on above: Performed By: #### V [id number], MG, BMP, JOSE, FE and TIBC, RETIC #### [address] Glucose [Mass/Vol] 79 mg/dL Normal 70-100 [facility] Comment on above: Result Comment: [place] Glucose Reference Range is dependent on time and content of last meal. Glucose of more than 200 mg/dL in a nonstressed, ambulatory subject supports the diagnosis of Diabetes Mellitus. ADA recommended reference range Performed By: #### V [id number], MG, BMP, JOSE, FE and TIBC, RETIC #### [address] Potassium [Moles/Vol] 4.6 mmol/L Normal 3.5-5.1 [facility] Comment on above: Performed By: #### V [id number], MG, BMP, JOSE, FE and TIBC, RETIC #### [address] Sodium [Moles/Vol] 134 mmol/L Low 136-145 [facility] Comment on above: Performed By: #### V [id number], MG, BMP, JOSE, FE and TIBC, RETIC #### [address] Urea nitrogen [Mass/Vol] 117 mg/dL High 7-25 [facility] Comment on above: Performed By: #### V [id number], MG, BMP, JOSE, FE and TIBC, RETIC #### [address] Magnesiumon 06-30-2023 Magnesium [Mass/Vol] 2.5 mg/dL Normal 1.9-2.7 [facility] Comment on above: Result Comment: PERF ORMED BY: [place] [address] PATHOLOGIST SHIPPING RECEIVING CLERK TANNER GAVIN M.D. Performed By: #### V [id number], MG, BMP, JOSE, FE and TIBC, RETIC #### [address] 36on 04-10-2023 36 Patient states she n eeds to cancel her surgery due to her son being on the transplant list, states she would like to reschedule. Normal [facility] Orders Onlyon 04-05-2023 Orders Only [id number] Loren Moser 1960 F Date Provider Department Center 04/05/2023 [facility] Family History Family history unknown: Yes [facility] Office Visiton 02-22-2023 Follow-up visit [id number] Loren Moser 1960 F Date Provider Department Center 02/22/2023 RHIANNON MED[facility] Family History Family history unknown: Yes Level of Service:53933 [place] OFFICE/OUTPATIENT ESTABLISHED MOD MDM 30-39 MIN [facility] Follow-Upon 02-16-2023 Follow-Up [id number] Loren Moser 1960 Provider Department Center 02/16/2023 [facility] Family History Family history unknown: Yes Level of Service:62501 [place] OFFICE/OUTPATIENT ESTABLISHED LOW MDM 20-29 MIN Reason for Visit and Comments: Pain [136] [facility] Consultation Noteon 02-10-20 Consultation Note [id number]:12 7 [facility] 36on 02-08-2023 36 Called patient to in form her she needs the CT done before her follow up wKell rosado. The appt has been cancelled and needs rescheduled. Normal [facility] Consultation Noteon 02-09-20 Consultation Note [id number]:12 7 [facility] RAD - MISCon 02-08-2023 RAD - MISC [id number]:12 7 [facility] 29on 01-13-2023 29 Addended by: OLU TORRES on: 02/07/2023 12:47 PM Modules accepted: Orders [facility] Office Visiton 01-13-2023 Follow-up visit [id number] Loren Moser 1960 Provider Department Center 01/13/2023 SHERLY ROWE [facility] Family History Family history unknown: Yes Level of Service:18863 [place] OFFICE/OUTPATIENT NEW MODERATE MDM 45-59 MINUTES Reason for Visit and Comments: Pain [136] Pain [136] [facility] 36on 12-23-2022 36 Please tell her the renal function is much better now (creatinine 1.4 on 12/20/2022). I don't think she need to increase water pills. Follow up labs as scheduled. [facility] Telephoneon 12-23-2022 Telephone [id number] Loren Moser 1960 Provider Department Center 12/23/2022 BENJIE LERMA YVONNE [facility] No family history on file [facility] Office Visiton 12-15-2022 Follow-up visit [id number] Loren Moser [address] [facility] Department [place] 12/15/2022 BENJIE LERMA YVONNE Barrios [facility] No family history on file Level of Service:82177 [place] OFFICE/OUTPATIENT ESTABLISHED MOD MDM 30-39 MIN Reason for Visit and Comments: Follow-up [040144] [facility] HPon 11-30-2022 HP H&P reviewed. The car wasserman was examined and there are no changes to the H&P. [facility] NURSNOTEon 11-30-2022 NURSNOTE RN educated pt on d/ c instructions. RN encouraged pt to voice any questions or concerns. Pt verbalizes no questions or concerns at this time. Pt was walked off of unit with all of belongings. [facility] Orders Onlyon 11-23-2022 Orders Only [id number] Loren oMser 1960 Provider Department Center 11/23/2022 MARTHA LAZCANO [facility] V[facility] No family history on file Normal [facility] CBC AUTO DIFFon 11-22-2022 BASO # 0.0 103/ul Normal 0.0-0.1 [facility] Comment on above: Performed By: #### C BC ####[facility] [address] [place] [phone]. Airam Tripathi Basophils/100 WBC (Bld) 0.6 % Normal 0.2-2.0 [facility] Comment on above: Performed By: #### C BC ####[facility] Stakuqvkul[address] [place] [address]Dr. Selenaneil Tripathi EO # 0.1 103/ul Normal 0.0-0.7 [facility] Comment on above: Performed By: #### C BC ####[facility] Fditnqknoc39[address] [place] [address]Dr. Airam Tripathi Eosinophils/100 WBC (Bld) 1.7 % Normal 0.9-7.0 [facility] Comment on above: Performed By: #### C BC ####[facility] Mveqjbgkpi6[address] [place] [address]Dr. Selenaneil Tripathi Erythrocyte distribution width (RBC) [Ratio] 15.2 % Critically high 11.0-15.0 [facility] Comment on above: Performed By: #### C BC ####[facility] [address]ocqdorclc[address] [place] [address]Dr. Airam Tripathi Hematocrit (Bld) [Volume fraction] 31.6 % Critically low 36.0-48.0 [facility] Comment on above: Performed By: #### C BC ####[facility] Hwkuizllje[address] [place] [address]Dr. Airam Tripathi Hemoglobin (Bld) [Mass/Vol] 9.9 g/dL Critically low 12.0-16.0 [facility] Comment on above: Performed By: #### C BC ####[facility] Ndxkveqhee7[address] [place] [address]Dr. Airam Tripathi IG # 0.02 10e3/ul Normal 0.00-0.03 [facility] Comment on above: Performed By: #### C BC ####[facility] Rmfdtpwdad27[address] [place] [address]Dr. Airam Tripathi IG % 0.4 % Normal 0.0-0.5 [facility] Comment on above: Performed By: #### C BC ####[facility] Mmyzggpvvm6539 [place] [phone]. Airam Tripathi LYMPH # 0.8 103/ul Critically low 1.2-3.8 [facility] Comment on above: Performed By: #### C BC ####[facility] Vdmkhacrbi3830 [place] [address]DrKianna Airam Deuce Lymphocytes/100 WBC (Bld) 16.9 % Critically low 20.5-60.0 [facility] Comment on above: Performed By: #### C BC ####[facility] Bebdugpyco[address] [place], [place] [address]Dr. Airam Deuce MANUAL DIFF REQ NO Normal [facility] Comment on above: Performed By: #### C BC ####[facility] Jbwglmzucq1248 [place] [address]Dr. Airam Tripathi MCH (RBC) [Entitic mass] 28.4 pg Normal 26.7-34.0 [facility] Comment on above: Performed By: #### C BC ####[facility] Ujnhdsintt[address] [place], [place] [id number]. Airam Tripathi MCHC (RBC) [Mass/Vol] 31.3 g/dL Normal 29.9-35.2 [facility] Comment on above: Performed By: #### C BC ####[facility] Qxevxvwzqn[address] [place], [place] [id number] Airam Tripathi MCV (RBC) [Entitic vol] 90.8 fL Normal 81.0-99.0 [facility] Comment on above: Performed By: #### C BC ####[facility] Stwkyxjwho[address] [place] [address]DrKianna Airam Deuce MONO # 0.4 103/ul Normal 0.3-0.8 [facility] Comment on above: Performed By: #### C BC ####[facility] Imcbbpiibq9134 [place] [phone]. Airam Tripathi Monocytes/100 WBC (Bld) 8.9 % Normal 1.7-12.0 [facility] Comment on above: Performed By: #### C BC ####[facility] Ezlpxwhxza7128 [place] [phone]. Airam Tripathi NEUT # 3.4 103/ul Normal 1.4-6.5 [facility] Comment on above: Performed By: #### C BC ####[facility] Fnnrbirjcs6349 [place] [address]Dr. Airam Tripathi Neutrophils/100 WBC (Bld) 71.5 % Normal 43.0-75.0 [facility] Comment on above: Performed By: #### C BC ####[facility] Tswepvvapu7687 [place] [phone]. Airam Tripathi Platelet mean volume (Bld) [Entitic vol] 9.4 fL Critically low 9.5-13.5 [facility] Comment on above: Performed By: #### C BC ####[facility] Pgrobrncmv2534 [place] [address]Dr. Airam Tripathi PLT 302 103/ul Normal 150-450 [facility] Comment on above: Performed By: #### C BC ####[facility] Yweqgjlgsf3529 [place] [address]Dr. Airam Tripathi RBC 3.48 106/ul Critically low 4.20-5.40 [facility] Comment on above: Performed By: #### C BC ####[facility] Sfscqolbgf6527 [place] [phone]. Airam Tripathi WBC 4.7 103/ul Normal 4.0-11.0 [facility] Comment on above: Performed By: #### C BC ####[facility] Vitdsrdcbb1031 [place] [phone] Tripathi PROF 14(COMP METB)on 023 Albumin [Mass/Vol] 3.4 g/dL Normal 3.4-5.0 [facility] Comment on above: Performed By: #### C MP ####[facility] Wrmrkbipfj84[address] [place] [address]Dr. Airam Tripathi Albumin/Globulin [Mass ratio] 1.0 {ratio} Normal [facility] Comment on above: Performed By: #### C MP ####[facility] Ukfyajylcl1646 [place] [address]Dr. Airam Tripathi ALP [Catalytic activity/Vol] 123 U/L Critically high 46-116 [facility] Comment on above: Performed By: #### C MP ####[facility] Rgzeoakowv34[address] [place], [place] [address]Dr. Airam Tripathi ALT [Catalytic activity/Vol] 24 U/L Normal 14-59 [facility] Comment on above: Performed By: #### C MP ####[facility] Wulqooxqem150[address] [place], [place] [address]Dr. Airam Tripathi Anion gap [Moles/Vol] 12.1 mmol/L Normal [facility] Comment on above: Performed By: #### C MP ####[facility] Lqinnufjut95[address] [place], [place] [address]Dr. Airam Tripathi AST [Catalytic activity/Vol] 30 U/L Normal 15-37 [facility] Comment on above: Performed By: #### C MP ####[facility] Izknlkfkam4147[address] [place], [place] [address]Dr. Airam Tripathi Bilirubin [Mass/Vol] 0.4 mg/dL Normal 0.2-1.0 [facility] Comment on above: Performed By: #### C MP ####[facility] Zlguwhzjio4129[address] [place], [place] [address]Dr. Airam Tripathi Calcium [Mass/Vol] 8.9 mg/dL Normal 8.5-10.1 [facility] Comment on above: Performed By: #### C MP ####[facility] Vijwcovvdb3894[address] [place], [place] [address]Dr. Airam Tripathi Chloride [Moles/Vol] 95 mmol/L Critically low 98-107 [facility] Comment on above: Performed By: #### C MP ####[facility] Hrsbgxwglf7599 [place] [phone]. Airam Tripathi CO2 [Moles/Vol] 28.7 mmol/L Normal 21.0-32.0 [facility] Comment on above: Performed By: #### C MP ####[facility] Ynuzvbvrdr9779 [place] [phone]. Airam Tripathi Creatinine [Mass/Vol] 1.25 mg/dL Critically high 0.55-1.02 [facility] Comment on above: Performed By: #### C MP ####[facility] Eknvbodzrs9619 [place] [phone]. Airam Tripathi EGFR-AF [place]IZ[place] 53 mL/min/1.73m2 Critically low >=60 [facility] Comment on above: Performed By: #### C MP ####[facility] Fgznwxsmdk9[address] [place], [place] [address]Dr. Airam Tripathi EGFR-NON AF CITIZEN [place] 44 mL/min/1.73m2 Critically low >=60 [facility] Comment on above: Performed By: #### C MP ####[facility] Wgyrdvjmsz5[address] [place], [place] [address]Dr. Airam Tripathi Globulin (S) [Mass/Vol] 3.5 g/dL Normal [facility] Comment on above: Performed By: #### C MP ####[facility] Wfmohnjkew67[address] [place] [address]Dr. Airam Tripathi Glucose [Mass/Vol] 89 mg/dL Normal 74-106 [facility] Comment on above: Performed By: #### C MP ####[facility] Owhsqpyfwv6294 [place] [phone]. Airam Tripathi Potassium [Moles/Vol] 4.8 mmol/L Normal 3.5-5.1 [facility] Comment on above: Performed By: #### C MP ####[facility] Ijloxlbbcj[address] [place], [place] [id number]. Airam Tripathi Protein [Mass/Vol] 6.9 g/dL Normal 6.4-8.2 [facility] Comment on above: Performed By: #### C MP ####[facility] Yxxomrsxqb8391 [place] [address]Dr. Airam Deuce Sodium [Moles/Vol] 131 mmol/L Critically low 136-145 [facility] Comment on above: Performed By: #### C MP ####[facility] Fijgvhzupp4[address] [place] [address]Dr. Airam Tripathi Urea nitrogen [Mass/Vol] 37.0 mg/dL Critically high 7.0-18.0 [facility] Comment on above: Performed By: #### C MP ####[facility] Fnffnbrrqx8[address] [place], [place] [address]Dr. Airam Tripathi Urea nitrogen/Creatinine [Mass ratio] 29.6 mg/mg Normal [facility] Comment on above: Performed By: #### C MP ####[facility] Trrmmwiibb993[address] [place], [place] [address]Dr. Airam Tripathi OSMOLALITYon 11-18-2022 Osmolality [Osmolality] 293 mosm/kg Normal 275-295 [facility] Comment on above: Performed By: #### O SMO ####[facility] Mhhteyrqos7[address] [place], [place] [address]Dr. Airam Deuce BNPon 11-16-2022 Natriuretic peptide B (Bld) [Mass/Vol] 1142.0 pg/mL Critically high <=900.0 [facility] Comment on above: Performed By: #### B FINISHED YARN EXAMINER ####[facility] Raiogkvcju9823[address] [place], [place] [address]Dr. Selenaneil Deuce CBC AUTO DIFFon 11-16-2022 BASO # 0.0 103/ul Normal 0.0-0.1 [facility] Comment on above: Performed By: #### C BC ####[facility] Jdywenqhtc9225[address] [place], [place] [address]Dr. Airam Tripathi Basophils/100 WBC (Bld) 0.3 % Normal 0.2-2.0 [facility] Comment on above: Performed By: #### C BC ####[facility] Ngmgrtgkrq034[address] [place], [place] [address]Dr. Airam Tripathi EO # 0.3 103/ul Normal 0.0-0.7 [facility] Comment on above: Performed By: #### C BC ####[facility] Lxighqrddz81[address] [place] [address]Dr. Airam Tripathi Eosinophils/100 WBC (Bld) 4.6 % Normal 0.9-7.0 [facility] Comment on above: Performed By: #### C BC ####[facility] Bznopkxhnx9474[address] [place], [place] [address]Dr. Airam Tripathi Erythrocyte distribution width (RBC) [Ratio] 16.1 % Critically high 11.0-15.0 [facility] Comment on above: Performed By: #### C BC ####[facility] Vqurbegnci5060[address] [place], [place] [address]Dr. Airam Tripathi Hematocrit (Bld) [Volume fraction] 28.0 % Critically low 36.0-48.0 [facility] Comment on above: Performed By: #### C BC ####[facility] Chkjpmjdoq279234 [address] [place], [place] [address]Dr. Airam Tripathi Hemoglobin (Bld) [Mass/Vol] 8.9 g/dL Critically low 12.0-16.0 [facility] Comment on above: Performed By: #### C BC ####[facility] Cackmvaveu2107[address] [place], [place] [address]Dr. Airam Deuce IG # 0.02 10e3/ul Normal 0.00-0.03 [facility] Comment on above: Performed By: #### C BC ####[facility] Wiuceuhwbn2385[address] [place], [place] [address]Dr. Airam Deuce IG % 0.3 % Normal 0.0-0.5 [facility] Comment on above: Performed By: #### C BC ####[facility] Ymhulwrgvz7970[address] [place], [place] [address]Dr. Airam Tripathi LYMPH # 1.5 103/ul Normal 1.2-3.8 [facility] Comment on above: Performed By: #### C BC ####[facility] Sgmkeyfcyg2479[address] [place], [place] [address]DrKianna Tripathi Lymphocytes/100 WBC (Bld) 24.2 % Normal 20.5-60.0 [facility] Comment on above: Performed By: #### C BC ####[facility] Kxtkroitht23[address] [place], [place] [address]DrKianna Tripathi MANUAL DIFF REQ NO Normal [facility] Comment on above: Performed By: #### C BC ####[facility] Xbnzvfwjga6963 [place] [address]DrKianna Tripathi MCH (RBC) [Entitic mass] 29.3 pg Normal 26.7-34.0 [facility] Comment on above: Performed By: #### C BC ####[facility] Tgocqppred5328[address] [place], [place] [address]DrKianna Tripathi MCHC (RBC) [Mass/Vol] 31.8 g/dL Normal 29.9-35.2 [facility] Comment on above: Performed By: #### C BC ####[facility] Ayrtynwgqn0146[address] [place], [place] [address]DrKianna Tripathi MCV (RBC) [Entitic vol] 92.1 fL Normal 81.0-99.0 [facility] Comment on above: Performed By: #### C BC ####[facility] Qeqgmxikvd3669[address] [place], [place] [address]DrKianna Tripathi MONO # 0.6 103/ul Normal 0.3-0.8 [facility] Comment on above: Performed By: #### C BC ####[facility] Zpworpztrs806[address] [place], [place] [address]DrKianna Tripathi Monocytes/100 WBC (Bld) 10.0 % Normal 1.7-12.0 [facility] Comment on above: Performed By: #### C BC ####[facility] Unrfupbnkk418[address] [place], [place] [address]DrKianna Tripathi NEUT # 3.7 103/ul Normal 1.4-6.5 [facility] Comment on above: Performed By: #### C BC ####[facility] Gcqsqjeghc4876[address] [place], [place] [address]DrKianna Tripathi Neutrophils/100 WBC (Bld) 60.6 % Normal 43.0-75.0 [facility] Comment on above: Performed By: #### C BC ####[facility] Fjxawqsaxl01[address] [place] [address]Dr. Airam Tripathi Platelet mean volume (Bld) [Entitic vol] 9.1 fL Critically low 9.5-13.5 [facility] Comment on above: Performed By: #### C BC ####[facility] Sxqikxlkch36[address] [place] [address]Dr. Selenaneil Deuce PLT 242 103/ul Normal 150-450 [facility] Comment on above: Performed By: #### C BC ####[facility] Hilqpywppv8246[address] [place], [place] [address]Dr. Selenaneil Tripathi RBC 3.04 106/ul Critically low 4.20-5.40 [facility] Comment on above: Performed By: #### C BC ####[facility] Kultnwrlhz3179[address] [place], [place] [address]Dr. Airam Tripathi WBC 6.1 103/ul Normal 4.0-11.0 [facility] Comment on above: Performed By: #### C BC ####[facility] Fwjrvbzlnk2275[address] [place], [place] [address]Dr. Selenaneil Tripathi CT STROKE HEAD WOon 11-17-19 CT STROKE HEAD WO Normal [facility] PROF CHEM 8 (BAS METB)on Anion gap [Moles/Vol] 9.8 mmol/L Normal [facility] Comment on above: Performed By: #### B GERTRUDE, HSTROPN ####[facility] Sghehnckqo28[address] [place] [address]Dr. Airam Tripathi Calcium [Mass/Vol] 8.4 mg/dL Critically low 8.5-10.1 [facility] Comment on above: Performed By: #### B GERTRUDE, HSTROPN ####[facility] Wgsnrbanya05[address] [place] [address]Dr. Airam Tripathi Chloride [Moles/Vol] 99 mmol/L Normal 98-107 [facility] Comment on above: Performed By: #### B GERTRUDE, HSTROPN ####[facility] Czzeaonwwr5625 [place] [address]Dr. Airam Tripathi CO2 [Moles/Vol] 28.3 mmol/L Normal 21.0-32.0 [facility] Comment on above: Performed By: #### B GERTRUDE, HSTROPN ####[facility] Werswokosy8[address] [place] [address]Dr. Airam Tripathi Creatinine [Mass/Vol] 1.40 mg/dL Critically high 0.55-1.02 [facility] Comment on above: Performed By: #### B GERTRUDE, HSTROPN ####[facility] Ytujifidbo3950[address] [place], [place] [address]Dr. Airam Tripathi EGFR-AF [place]IZ[place] 46 mL/min/1.73m2 Critically low >=60 [facility] Comment on above: Performed By: #### B GERTRUDE, HSTROPN ####[facility] Vqyzvkzkbi96[address] [place], [place] [address]Dr. Airam Tripathi EGFR-NON AF CITIZEN [place] 38 mL/min/1.73m2 Critically low >=60 [facility] Comment on above: Performed By: #### B GERTRUDE, HSTROPN ####[facility] Eojivkhjvc7665[address] [place], [place] [address]Dr. Airam Tripathi Glucose [Mass/Vol] 88 mg/dL Normal 74-106 [facility] Comment on above: Performed By: #### B GERTRUDE, HSTROPN ####[facility] Zbibxipyjv6410[address] [place], [place] [address]Dr. Airam Tripathi Potassium [Moles/Vol] 5.1 mmol/L Normal 3.5-5.1 [facility] Comment on above: Performed By: #### B GERTRUDE, HSTROPN ####[facility] Aogjaooahy9248[address] [place], [place] [address]Dr. Airam Tripathi Sodium [Moles/Vol] 132 mmol/L Critically low 136-145 [facility] Comment on above: Performed By: #### B GERTRUDE, HSTROPN ####[facility] [address] [place] [address]Ze. Airam Tripathi Urea nitrogen [Mass/Vol] 56.0 mg/dL Critically high 7.0-18.0 [facility] Comment on above: Performed By: #### B GERTRUDE HSTROPN ####[facility] Gyljykvsxo7[address] [place] [address]Dr. Airam Tripathi Urea nitrogen/Creatinine [Mass ratio] 40.0 mg/mg Normal [facility] Comment on above: Performed By: #### B GERTRUDE HSTROPN ####[facility] Ingvapbqzb077[address] [place] [address]Dr. Airam Tripathi TROPONIN, HIGH SENSITIVITYon 11-16-2022 HSTROP 9.9 pg/mL Normal 4.0-51.3 [facility] Comment on above: Result Comment: CUT- OFF POINTS HAVE BEEN ESTABLISHED BASED ON THE FOURTH UNIVERSAL DEFINITIONS OF MYOCARDIALINFARCTION. THE UPPER REFERENCE LIMIT (URL) OF TROPONIN, DEFINED THE 99TH PERCENTILE OFcTnI DISTRIBUTION IN A REFERENCE POPULATION, HAS BEEN CONFIRMED THE DECISION THRESHOLDFOR AK DIAGNOSIS. Performed By: #### B GERTRUDE HSTROPN ####[facility] Rhztxihihh4833[address] [place], [place] [address]Dr. Airam Tripathi XR CHEST 1 Von 11-16-2022 XR CHEST 1 V Normal [facility] CBC AUTO DIFFon 11-11-2022 BASO # 0.0 103/ul Normal 0.0-0.1 [facility] Comment on above: Performed By: #### C BC ####[facility] Vyisjybahd8[address] [place], [place] [address]Dr. Airam Tripathi Basophils/100 WBC (Bld) 0.4 % Normal 0.2-2.0 [facility] Comment on above: Performed By: #### C BC ####[facility] Mhibnabzel9167[address] [place], [place] [address]Dr. Airam Tripathi EO # 0.4 103/ul Normal 0.0-0.7 [facility] Comment on above: Performed By: #### C BC ####[facility] Kgvgkrzemp6254[address] [place], [place] [address]Dr. Airam Tripathi Eosinophils/100 WBC (Bld) 4.6 % Normal 0.9-7.0 [facility] Comment on above: Performed By: #### C BC ####[facility] Vppimlsgjn667[address] [place], [place] [address]Dr. Airam Tripathi Erythrocyte distribution width (RBC) [Ratio] 15.8 % Critically high 11.0-15.0 [facility] Comment on above: Performed By: #### C BC ####[facility] Rqxfvwuhhh299[address] [place], [place] [address]Dr. Airam Tripathi Hematocrit (Bld) [Volume fraction] 30.3 % Critically low 36.0-48.0 [facility] Comment on above: Performed By: #### C BC ####[facility] Ryvpxmpuur143[address] [place], [place] [address]Dr. Airam Tripathi Hemoglobin (Bld) [Mass/Vol] 9.3 g/dL Critically low 12.0-16.0 [facility] Comment on above: Performed By: #### C BC ####[facility] Cblkihrpod599[address] [place], [place] [address]Dr. Airam Tripathi IG # 0.03 10e3/ul Normal 0.00-0.03 [facility] Comment on above: Performed By: #### C BC ####[facility] Sinifzmaqh832[address] [place], [place] [address]Dr. Airam Tripathi IG % 0.4 % Normal 0.0-0.5 [facility] Comment on above: Performed By: #### C BC ####[facility] Finfdmpenb1732[address] [place], [place] [address]Dr. Airam Tripathi LYMPH # 2.0 103/ul Normal 1.2-3.8 [facility] Comment on above: Performed By: #### C BC ####[facility] Ogvovxwbet404[address] [place], [place] [address]Dr. Airam Tripathi Lymphocytes/100 WBC (Bld) 24.5 % Normal 20.5-60.0 [facility] Comment on above: Performed By: #### C BC ####[facility] Fzcuhphemm3[address] [place], [place] [address]DrKianna Tripathi MANUAL DIFF REQ NO Normal [facility] Comment on above: Performed By: #### C BC ####[facility] Wmykrekgvp5775 [place] [address]DrKianna Tripathi MCH (RBC) [Entitic mass] 28.9 pg Normal 26.7-34.0 [facility] Comment on above: Performed By: #### C BC ####[facility] Msibxlwjiu2006 [place] [address]DrKianna Tripathi MCHC (RBC) [Mass/Vol] 30.7 g/dL Normal 29.9-35.2 [facility] Comment on above: Performed By: #### C BC ####[facility] Fcyuwynuha70[address] [place], [place] [address]DrKianna Tripathi MCV (RBC) [Entitic vol] 94.1 fL Normal 81.0-99.0 [facility] Comment on above: Performed By: #### C BC ####[facility] Ezharwrjek90[address] [place], [place] [address]DrKianna Tripathi MONO # 0.7 103/ul Normal 0.3-0.8 [facility] Comment on above: Performed By: #### C BC ####[facility] Epubaxwchb280[address] [place], [place] [address]DrKianna Tripathi Monocytes/100 WBC (Bld) 8.3 % Normal 1.7-12.0 [facility] Comment on above: Performed By: #### C BC ####[facility] Oayznnezna5[address] [place], [place] [address]DrKianna Tripathi NEUT # 5.0 103/ul Normal 1.4-6.5 [facility] Comment on above: Performed By: #### C BC ####[facility] Cxdrawwrgm006134 [address] [place], [place] [address]DrKianna Tripathi Neutrophils/100 WBC (Bld) 61.8 % Normal 43.0-75.0 [facility] Comment on above: Performed By: #### C BC ####[facility] Vyuagygpuu06[address] [place], [place] [address]DrKianna Tripathi Platelet mean volume (Bld) [Entitic vol] 9.4 fL Critically low 9.5-13.5 [facility] Comment on above: Performed By: #### C BC ####[facility] [address] [place] [address]Dr. Airam Tripathi PLT 270 103/ul Normal 150-450 [facility] Comment on above: Performed By: #### C BC ####[facility] Rxkcsssyyy8496 [place] [address]Dr. Airam Tripathi RBC 3.22 106/ul Critically low 4.20-5.40 [facility] Comment on above: Performed By: #### C BC ####[facility] Mpajqiaujo6[address] [place], [place] [address]DrKianna Tripathi WBC 8.1 103/ul Normal 4.0-11.0 [facility] Comment on above: Performed By: #### C BC ####[facility] Wirgwcxxfa947534 [address] [place], [place] [address]Dr. Airam Tripathi PROF 14(COMP METB)on 023 Albumin [Mass/Vol] 3.2 g/dL Critically low 3.4-5.0 [facility] Comment on above: Performed By: #### C MP ####[facility] Ngxpwbhbkw3223 [place] [address]DrKianna Tripathi Albumin/Globulin [Mass ratio] 1.0 {ratio} Normal [facility] Comment on above: Performed By: #### C MP ####[facility] Fsqntgrhps03[address] [place] [address]DrKianna Tripathi ALP [Catalytic activity/Vol] 108 U/L Normal 46-116 [facility] Comment on above: Performed By: #### C MP ####[facility] Rpitvhvahf5077[address] [place], [place] [address]DrKianna Tripathi ALT [Catalytic activity/Vol] 30 U/L Normal 14-59 [facility] Comment on above: Performed By: #### C MP ####[facility] Eyhoafmggr979834 [address] [place], [place] [address]DrKianna Tripathi Anion gap [Moles/Vol] 12.8 mmol/L Normal [facility] Comment on above: Performed By: #### C MP ####[facility] Nndftfwlfu7[address] [place] [address]Dr. Airam Tripathi AST [Catalytic activity/Vol] 33 U/L Normal 15-37 [facility] Comment on above: Performed By: #### C MP ####[facility] Zpqbsrxwnf924534 [address] [place], [place] [address]Dr. Selenaneil Deuce Bilirubin [Mass/Vol] 0.2 mg/dL Normal 0.2-1.0 [facility] Comment on above: Performed By: #### C MP ####[facility] Ntwahduyfi368934 [address] [place], [place] [address]Dr. Airam Tripathi Calcium [Mass/Vol] 8.3 mg/dL Critically low 8.5-10.1 [facility] Comment on above: Performed By: #### C MP ####[facility] Byaytnipcb701634 [address] [place], [place] [address]Dr. Airam Tripathi Chloride [Moles/Vol] 99 mmol/L Normal 98-107 [facility] Comment on above: Performed By: #### C MP ####[facility] Uaauiykngv633034 [address] [place], [place] [address]Dr. Airam Tripathi CO2 [Moles/Vol] 27.6 mmol/L Normal 21.0-32.0 [facility] Comment on above: Performed By: #### C MP ####[facility] Ecflkypxoa683634 [address] [place], [place] [address]Dr. Airam Tripathi Creatinine [Mass/Vol] 2.01 mg/dL Critically high 0.55-1.02 [facility] Comment on above: Performed By: #### C MP ####[facility] Wkuvpubmbe934434 [address] [place], [place] [address]Dr. Airam Tripathi EGFR-AF [place]IZ[place] 31 mL/min/1.73m2 Critically low >=60 [facility] Comment on above: Performed By: #### C MP ####[facility] Iwwdyhlmjl719234 [address] [place], [place] [address]Dr. Airam Tripathi EGFR-NON AF CITIZEN OF [place] 25 mL/min/1.73m2 Critically low >=60 [facility] Comment on above: Performed By: #### C MP ####[facility] Bqbfqkhfli[address] [place] [address]Dr. Airam Tripathi Globulin (S) [Mass/Vol] 3.2 g/dL Normal [facility] Comment on above: Performed By: #### C MP ####[facility] Qbidaerzgr4711 [place] [address]Dr. Airam Tripathi Glucose [Mass/Vol] 158 mg/dL Critically high 74-106 [facility] Comment on above: Performed By: #### C MP ####[facility] Lqscunyoze501034 [address] [place], [place] [address]Dr. Airam Tripathi Potassium [Moles/Vol] 5.4 mmol/L Critically high 3.5-5.1 [facility] Comment on above: Performed By: #### C MP ####[facility] Ipgccgpweo005834 [address] [place], [place] [address]Dr. Airam Tripathi Protein [Mass/Vol] 6.4 g/dL Normal 6.4-8.2 [facility] Comment on above: Performed By: #### C MP ####[facility] Sttsndivyg707734 [address] [place], [place] [address]Dr. Airam Tripathi Sodium [Moles/Vol] 134 mmol/L Critically low 136-145 [facility] Comment on above: Performed By: #### C MP ####[facility] Honxqzvpkw471334 [address] [place], [place] [address]Dr. Airam Tripathi Urea nitrogen [Mass/Vol] 52.0 mg/dL Critically high 7.0-18.0 [facility] Comment on above: Performed By: #### C MP ####[facility] Qabpjfctlp073634 [address] [place], [place] [address]Dr. Airam Tripathi Urea nitrogen/Creatinine [Mass ratio] 25.9 mg/mg Normal [facility] Comment on above: Performed By: #### C MP ####[facility] Ocmgcwjuxm700434 [address] [place], [place] [address]Dr. Airam Tripathi HPon 11-07-2022 [facility] Cardiology - [facility] Subjective Mabel Moser is a 62 y.o. year old female patient being seen for 2 week follow up per Sofie Bernard CNP. She says since she was last seen on 10/28, Dr. Santana increased her Entresto to 97-103mg bid, metoprolol to 50mg TID, and hydralazine to 100mg TID. Says she was in [facility] ED again last Monday with [...] In the past she was admitted to [facility] in 2019 with fluid overload [...] distension. Pal (more content not included)... Normal [facility] Office Visiton 11-07-2022 Follow-up visit [id number] Loren Moser 1960 F Date Provider Department Center 11/07/2022 [facility] No family history on file Level of Service:20905 [place] OFFICE/OUTPATIENT ESTABLISHED MOD MDM 30-39 MIN Normal [facility] OSMOLALITYon 11-06-2022 Osmolality [Osmolality] 261 mosm/kg Critically low 275-295 [facility] Comment on above: Performed By: #### O SMO ####[facility] Opcjgsttyt695034 [address] [place], [place] [address]Dr. Airam Tripathi XR HIPS GUMARO 3_4V WO PELVISon 11-04-2022 XR HIPS GUMARO 3_4V WO PELVIS Normal [facility] XR KNEE LT 4V or >on 023 XR KNEE LT 4V or > Normal [facility] BNPon 11-03-2022 Natriuretic peptide B (Bld) [Mass/Vol] 1168.0 pg/mL Critically high <=900.0 [facility] Comment on above: Performed By: #### B FINISHED YARN EXAMINER, BMP ####[facility] Jfsxkhtadm879[address] [place], [place] [address]Dr. Airam Tripathi CBC AUTO DIFFon 11-03-2022 BASO # 0.0 103/ul Normal 0.0-0.1 [facility] Comment on above: Performed By: #### C BC ####[facility] Njqwaciaoa715734 [address] [place], [place] [address]Dr. Airam Tripathi Basophils/100 WBC (Bld) 0.3 % Normal 0.2-2.0 [facility] Comment on above: Performed By: #### C BC ####[facility] Yywejniwdw591734 [address] [place], [place] [address]Dr. Airam Tripathi EO # 0.2 103/ul Normal 0.0-0.7 [facility] Comment on above: Performed By: #### C BC ####[facility] Glorynmwma904534 [address] [place], [place] [address]Dr. Airam Tripathi Eosinophils/100 WBC (Bld) 1.9 % Normal 0.9-7.0 [facility] Comment on above: Performed By: #### C BC ####[facility] Thibgltika180634 [address] [place], [place] [address]Dr. Airam Tripathi Erythrocyte distribution width (RBC) [Ratio] 15.2 % Critically high 11.0-15.0 [facility] Comment on above: Performed By: #### C BC ####[facility] Ujlygohwqg1640[address] [place], [place] [address]Dr. Airam Tripathi Hematocrit (Bld) [Volume fraction] 34.3 % Critically low 36.0-48.0 [facility] Comment on above: Performed By: #### C BC ####[facility] Gopoxyduxz932034 [address] [place], [place] [address]Dr. Airam Tripathi Hemoglobin (Bld) [Mass/Vol] 11.0 g/dL Critically low 12.0-16.0 [facility] Comment on above: Performed By: #### C BC ####[facility] Fxswmjzprt6799[address] [place], [place] [address]Dr. Airam Tripathi IG # 0.06 10e3/ul Critically high 0.00-0.03 [facility] Comment on above: Performed By: #### C BC ####[facility] Zjjsaeiqlx4860[address] [place], [place] [address]Dr. Airam Tripathi IG % 0.5 % Normal 0.0-0.5 [facility] Comment on above: Performed By: #### C BC ####[facility] Cbkscgmbks5568[address] [place], [place] [address]Dr. Airam Tripathi LYMPH # 2.3 103/ul Normal 1.2-3.8 [facility] Comment on above: Performed By: #### C BC ####[facility] Rbhtbzcbuj067[address] [place], [place] [address]Dr. Airam Tripathi Lymphocytes/100 WBC (Bld) 20.4 % Critically low 20.5-60.0 [facility] Comment on above: Performed By: #### C BC ####[facility] [address] [place] [address]Dr. Airam Tripathi MANUAL DIFF REQ NO Normal [facility] Comment on above: Performed By: #### C BC ####[facility] Hzdtxwzktz5914 [place] [address]Dr. Airam Tripathi MCH (RBC) [Entitic mass] 28.7 pg Normal 26.7-34.0 [facility] Comment on above: Performed By: #### C BC ####[facility] Aztefxmyzy[address] [place] [address]Dr. Airam Tripathi MCHC (RBC) [Mass/Vol] 32.1 g/dL Normal 29.9-35.2 [facility] Comment on above: Performed By: #### C BC ####[facility] Pe[address]xsnsgph4[address] [place] [address]Dr. Airam Tripathi MCV (RBC) [Entitic vol] 89.6 fL Normal 81.0-99.0 [facility] Comment on above: Performed By: #### C BC ####[facility] Rfmqyutuig1286 [place] [address]Dr. Airam Tripathi MONO # 0.9 103/ul Critically high 0.3-0.8 [facility] Comment on above: Performed By: #### C BC ####[facility] Pj[address]ograwf[address] [place] [address]Dr. Airam Deuce Monocytes/100 WBC (Bld) 8.3 % Normal 1.7-12.0 [facility] Comment on above: Performed By: #### C BC ####[facility] Ufkmbsrpru87[address] [place] [address]Dr. Airam Tripathi NEUT # 7.8 103/ul Critically high 1.4-6.5 [facility] Comment on above: Performed By: #### C BC ####[facility] Dneyxcvsam5[address] [place] [address]Dr. Airam Deuce Neutrophils/100 WBC (Bld) 68.6 % Normal 43.0-75.0 [facility] Comment on above: Performed By: #### C BC ####[facility] Thvxiyrchz8[address] [place] [phone]. Airam Tripathi Platelet mean volume (Bld) [Entitic vol] 8.9 fL Critically low 9.5-13.5 [facility] Comment on above: Performed By: #### C BC ####[facility] Cwh[address]ytmy[address] [place] [address]Dr. iAram Tripathi PLT 323 103/ul Normal 150-450 [facility] Comment on above: Performed By: #### C BC ####[facility] Eoigmvagiz0[address] [place] [address]Dr. Airam Tripathi RBC 3.83 106/ul Critically low 4.20-5.40 [facility] Comment on above: Performed By: #### C BC ####[facility] Dlcgezgavx0061 [place] [address]Dr. Airam Tripathi WBC 11.4 103/ul Critically high 4.0-11.0 [facility] Comment on above: Performed By: #### C BC ####[facility] Ysjnfwnlwt0138[address] [place], [place] [address]Dr. Airam Tripathi BASO # 0.0 103/ul Normal 0.0-0.1 [facility] Comment on above: Performed By: #### C BC ####[facility] Asuvynoswd397834 [address] [place], [place] [address]Dr. Airam Tripathi Basophils/100 WBC (Bld) 0.2 % Normal 0.2-2.0 [facility] Comment on above: Performed By: #### C BC ####[facility] Kaqokzqkdp34[address] [place] [address]Dr. Airam Tripathi EO # 0.1 103/ul Normal 0.0-0.7 [facility] Comment on above: Performed By: #### C BC ####[facility] Mvcdvswviw022234 [address] [place], [place] [address]Dr. Airam Tripathi Eosinophils/100 WBC (Bld) 0.7 % Critically low 0.9-7.0 [facility] Comment on above: Performed By: #### C BC ####[facility] Ohjsxxqwsc216734 [address] [place], [place] [address]Dr. Selenaneil Tripathi Erythrocyte distribution width (RBC) [Ratio] 15.4 % Critically high 11.0-15.0 [facility] Comment on above: Performed By: #### C BC ####[facility] Kjcoypldnu6166[address] [place], [place] [address]Dr. Airam Tripathi Hematocrit (Bld) [Volume fraction] 33.6 % Critically low 36.0-48.0 [facility] Comment on above: Performed By: #### C BC ####[facility] Rmcvcbxtyh651334 [address] [place], [place] [address]Dr. Airam Tripathi Hemoglobin (Bld) [Mass/Vol] 10.9 g/dL Critically low 12.0-16.0 [facility] Comment on above: Performed By: #### C BC ####[facility] Ibnagldhym115034 [address] [place], [place] [address]Dr. Airam Tripathi IG # 0.04 10e3/ul Critically high 0.00-0.03 [facility] Comment on above: Performed By: #### C BC ####[facility] Jpxfgongdg532334 [address] [place], [place] [address]Dr. Airam Tripathi IG % 0.5 % Normal 0.0-0.5 [facility] Comment on above: Performed By: #### C BC ####[facility] Qnfazxtwoy219934 [address] [place], [place] [address]Dr. Airam Tripathi LYMPH # 1.1 103/ul Critically low 1.2-3.8 [facility] Comment on above: Performed By: #### C BC ####[facility] Rxfhsivuoo542334 [address] [place], [place] [address]Dr. Airam Tripathi Lymphocytes/100 WBC (Bld) 13.3 % Critically low 20.5-60.0 [facility] Comment on above: Performed By: #### C BC ####[facility] Krtrytabjf616634 [address] [place], [place] [address]Dr. Airam Tripathi MANUAL DIFF REQ NO Normal [facility] Comment on above: Performed By: #### C BC ####[facility] Ypmsieqkrj6236 [place] [phone]. Airam Tripathi MCH (RBC) [Entitic mass] 29.1 pg Normal 26.7-34.0 [facility] Comment on above: Performed By: #### C BC ####[facility] Pijykoswbj360[address] [place] [address]Dr. Airam Tripathi MCHC (RBC) [Mass/Vol] 32.4 g/dL Normal 29.9-35.2 [facility] Comment on above: Performed By: #### C BC ####[facility] Aucbexfsxg827234 [address] [place], [place] [address]Dr. Airam Tripathi MCV (RBC) [Entitic vol] 89.6 fL Normal 81.0-99.0 [facility] Comment on above: Performed By: #### C BC ####[facility] Qpzzwlpzon803634 [address] [place], [place] [address]Dr. Airam Tripathi MONO # 0.5 103/ul Normal 0.3-0.8 [facility] Comment on above: Performed By: #### C BC ####[facility] Ixyenbsaeg53[address] [place], [place] [address]Dr. Airam Tripathi Monocytes/100 WBC (Bld) 6.4 % Normal 1.7-12.0 [facility] Comment on above: Performed By: #### C BC ####[facility] Mwygukkmze4187[address] [place], [place] [address]Dr. Airam Tripathi NEUT # 6.5 103/ul Normal 1.4-6.5 [facility] Comment on above: Performed By: #### C BC ####[facility] Lyboxoxujh824534 [address] [place], [place] [address]Dr. Airam Deuce Neutrophils/100 WBC (Bld) 78.9 % Critically high 43.0-75.0 [facility] Comment on above: Performed By: #### C BC ####[facility] Ummrzyfklo497234 [address] [place], [place] [address]Dr. Airam Tripathi Platelet mean volume (Bld) [Entitic vol] 9.4 fL Critically low 9.5-13.5 [facility] Comment on above: Performed By: #### C BC ####[facility] Ygqulvzsft75[address] [place] [phone]. Airam Tripathi PLT 314 103/ul Normal 150-450 [facility] Comment on above: Performed By: #### C BC ####[facility] Tbhobdpedl7069 [place] [phone]. Airam Tripathi RBC 3.75 106/ul Critically low 4.20-5.40 [facility] Comment on above: Performed By: #### C BC ####[facility] Tvjdyvinhu4[address] [place] [address]Dr. Airam Tripathi WBC 8.3 103/ul Normal 4.0-11.0 [facility] Comment on above: Performed By: #### C BC ####[facility] Iqpsmnqnfq32[address] [place] [address] Airam Tripathi CT HEAD WO CONon 11-03-2022 CT HEAD WO CON Normal [facility] PROF 14(COMP METB)on 023 Albumin [Mass/Vol] 3.2 g/dL Critically low 3.4-5.0 [facility] Comment on above: Performed By: #### C MP ####[facility] [address]klppattlh[address] [place] [address]Dr. Airam Tripathi Albumin/Globulin [Mass ratio] 0.9 {ratio} Normal [facility] Comment on above: Performed By: #### C MP ####[facility] Zsepqyqdzf67[address] [place] [address]Dr. Selenaneil Deuce ALP [Catalytic activity/Vol] 109 U/L Normal 46-116 [facility] Comment on above: Performed By: #### C MP ####[facility] Pvoulytonp01[address] [place] [address]Dr. Selenaneil Deuce ALT [Catalytic activity/Vol] 25 U/L Normal 14-59 [facility] Comment on above: Performed By: #### C MP ####[facility] Opjgkbeijr42[address] [place] [address]Dr. Airam Tripathi Anion gap [Moles/Vol] 10.9 mmol/L Normal [facility] Comment on above: Performed By: #### C MP ####[facility] Uogcalwmea7831 [place] [phone]. Airam Tripathi AST [Catalytic activity/Vol] 24 U/L Normal 15-37 [facility] Comment on above: Performed By: #### C MP ####[facility] Icdouhoebu9566 [place] [phone]. Airam Tripathi Bilirubin [Mass/Vol] 0.3 mg/dL Normal 0.2-1.0 [facility] Comment on above: Performed By: #### C MP ####[facility] Iilecmbexe9223 [place] [address]Dr. Airam Tripathi Calcium [Mass/Vol] 8.6 mg/dL Normal 8.5-10.1 [facility] Comment on above: Performed By: #### C MP ####[facility] Ejgocwhcol8848[address] [place], [place] [address]Dr. Airam Tripathi Chloride [Moles/Vol] 95 mmol/L Critically low 98-107 [facility] Comment on above: Performed By: #### C MP ####[facility] Ilqrwtwqcw456834 [address] [place], [place] [address]Dr. Airam Tripathi CO2 [Moles/Vol] 27.8 mmol/L Normal 21.0-32.0 [facility] Comment on above: Performed By: #### C MP ####[facility] Rxjxpruyju452134 [address] [place], [place] [address]Dr. Airam Tripathi Creatinine [Mass/Vol] 1.07 mg/dL Critically high 0.55-1.02 [facility] Comment on above: Performed By: #### C MP ####[facility] Egbkvkdeux6353 [place] [phone]. Airam Deuce EGFR-AF [place]IZ[place] >60 Normal >=60 [facility] Comment on above: Performed By: #### C MP ####[facility] Yiputwrbti2516 [place] [phone]. Airam Deuce EGFR-NON AF CITIZEN [place] 52 mL/min/1.73m2 Critically low >=60 [facility] Comment on above: Performed By: #### C MP ####[facility] Gdbpsjjkbv6593 [place] [address]Dr. Airam Tripathi Globulin (S) [Mass/Vol] 3.5 g/dL Normal [facility] Comment on above: Performed By: #### C MP ####[facility] Xlzkdblcqd4271 [place] [address]Dr. Airam Tripathi Glucose [Mass/Vol] 86 mg/dL Normal 74-106 [facility] Comment on above: Performed By: #### C MP ####[facility] Cmdreohpyq5926[address] [place], [place] [address]Dr. Airam Tripathi Potassium [Moles/Vol] 4.7 mmol/L Normal 3.5-5.1 [facility] Comment on above: Performed By: #### C MP ####[facility] Fqpwqexccb741534 [address] [place], [place] [address]Dr. Airam Tripathi Protein [Mass/Vol] 6.7 g/dL Normal 6.4-8.2 [facility] Comment on above: Performed By: #### C MP ####[facility] Jdypyzyrjg896234 [address] [place], [place] [address]Dr. Airam Tripathi Sodium [Moles/Vol] 129 mmol/L Critically low 136-145 [facility] Comment on above: Performed By: #### C MP ####[facility] Lssfispolz525634 [address] [place], [place] [address]Dr. Airam Tripathi Urea nitrogen [Mass/Vol] 19.0 mg/dL Critically high 7.0-18.0 [facility] Comment on above: Performed By: #### C MP ####[facility] Qsloycbxnz418334 [address] [place], [place] [address]Dr. Airam Tripathi Urea nitrogen/Creatinine [Mass ratio] 17.8 mg/mg Normal [facility] Comment on above: Performed By: #### C MP ####[facility] Nxoosiktwb173434 [address] [place], [place] [address]Dr. Airam Tripathi PROF CHEM 8 (BAS METB)on Anion gap [Moles/Vol] 9.0 mmol/L Normal [facility] Comment on above: Performed By: #### B FINISHED YARN EXAMINER, BMP ####[facility] Fcuniteobk9454 [place] [address]Dr. Airam Tripathi Calcium [Mass/Vol] 8.5 mg/dL Normal 8.5-10.1 [facility] Comment on above: Performed By: #### B FINISHED YARN EXAMINER, BMP ####[facility] Elxpazcjqy0363 [place] [address]Dr. Airam Tripathi Chloride [Moles/Vol] 93 mmol/L Critically low 98-107 [facility] Comment on above: Performed By: #### B FINISHED YARN EXAMINER, BMP ####[facility] Rrrjybliod299[address] [place], [place] [address]Dr. Airam Tripathi CO2 [Moles/Vol] 28.1 mmol/L Normal 21.0-32.0 [facility] Comment on above: Performed By: #### B FINISHED YARN EXAMINER, BMP ####[facility] Amqbfvqhwd2345[address] [place], [place] [address]Dr. Airam Tripathi Creatinine [Mass/Vol] 1.17 mg/dL Critically high 0.55-1.02 [facility] Comment on above: Performed By: #### B FINISHED YARN EXAMINER, BMP ####[facility] Uabeilvwfq6399[address] [place], [place] [address]Dr. Airam Tripathi EGFR-AF [place]IZ[place] 57 mL/min/1.73m2 Critically low >=60 [facility] Comment on above: Performed By: #### B FINISHED YARN EXAMINER, BMP ####[facility] Npkklrungn5445[address] [place], [place] [address]Dr. Airam Tripathi EGFR-NON AF CITIZEN [place] 47 mL/min/1.73m2 Critically low >=60 [facility] Comment on above: Performed By: #### B FINISHED YARN EXAMINER, BMP ####[facility] [address] [place], [place] [address]Dr. Airam Tripathi Glucose [Mass/Vol] 107 mg/dL Critically high 74-106 [facility] Comment on above: Performed By: #### B FINISHED YARN EXAMINER, BMP ####[facility] [address] [place], [place] [address]Dr. Airam Tripathi Potassium [Moles/Vol] 4.1 mmol/L Normal 3.5-5.1 [facility] Comment on above: Performed By: #### B FINISHED YARN EXAMINER, BMP ####[facility] [address] [place] [id number]. Airam Tripathi Sodium [Moles/Vol] 126 mmol/L Critically low 136-145 [facility] Comment on above: Performed By: #### B FINISHED YARN EXAMINER, BMP ####[facility] [address] [place] [id number]. Airam Tripathi Urea nitrogen [Mass/Vol] 20.0 mg/dL Critically high 7.0-18.0 [facility] Comment on above: Performed By: #### B FINISHED YARN EXAMINER, BMP ####[facility] [address] [place] [address]Dr. Airam Tripathi Urea nitrogen/Creatinine [Mass ratio] 17.1 mg/mg Normal [facility] Comment on above: Performed By: #### B FINISHED YARN EXAMINER, BMP ####[facility] [address] [place] [address]Dr. Airam Tripathi XR CHEST 1 Von 11-03-2022 XR CHEST 1 V Normal [facility] Activated partial thrombopla stin time (aPTT) in platelet poor plasma by coagulation aOrdered By: Favian Helm on 10-28-2022 aPTT Coag (PPP) [Time] 31.7 s 25.1-36.5 [facility] Alanine aminotransferase [En zymatic activity/volume] in Serum or PlasmaOrdered By: Favian Helm on 10-28-2022 ALT [Catalytic activity/Vol] 14 U/L 7-52 [facility] Albumin [Mass/volume] in Ser um or Plasma by Bromocresol green (BCG) dye binding methoOrdered By: Favian Helm on 10-28-2022 Albumin BCG dye [Mass/Vol] 3.6 g/dL 3.5-5.7 [facility] Alkaline phosphatase [Enzyma tic activity/volume] in Serum or PlasmaOrdered By: Favian Helm on 10-28-2022 ALP [Catalytic activity/Vol] 84 U/L 34-104 [facility] Aspartate aminotransferase [ Enzymatic activity/volume] in Serum or PlasmaOrdered By: Favian Helm on 10-28-2022 AST [Catalytic activity/Vol] 21 U/L 13-39 [facility] B-Type Natriuretic Peptideon 10-28-2022 Natriuretic peptide B (Bld) [Mass/Vol] 551.0 pg/mL High 5-100 [facility] Comment on above: Result Comment: PERF ORMED BY: [facility] [address] [place] [address] PATHOLOGIST SHIPPING RECEIVING CLERK TANNER GAVIN M.D. Performed By: #### V [id number], MG, BMP, JOSE, FE and TIBC, RETIC #### [facility] [address] Basophils Auto (Bld) [#/Vol] Ordered By: Favian Helm on 10-28-2022 Basophils (Bld) [#/Vol] 0.0 10*3/uL 0.0-0.2 [facility] Basophils/100 WBC Auto (Bld) Ordered By: Favian Helm on 10-28-2022 Basophils/100 WBC (Bld) 0.4 % . [facility] Bilirubin.total [Mass/volume ] in Serum or PlasmaOrdered By: Favian Helm on 10-28-2022 Bilirubin [Mass/Vol] 0.3 mg/dL 0.3-1.[address] [facility] [address] head/brain wo conon 10-28 CT head/brain wo con [facility] [address] [place] [address] [place] [address] CT Scan Report Signed Patient: Mabel Moser MR#: [id number] : 1960 Acct:[id number] Age/Sex: 62 / F ADM Date: 10/28/22 Loc: ER Room: Type: [facility] ER Attending Dr: Copies to: Favian Helm [...] Baljinder Ball M.D.10/28/2022 7:46 PM Dictation Location: [place] [address] Transcribed By: [facility] 10/28/221945 Dictated By: Baljinder Ball DO 10/28/221934 Signed By: 10/28/221945 Normal [facility] Calcium [Mass/volume] in Ser um or PlasmaOrdered By: Favian Helm on 10-28-2022 Calcium [Mass/Vol] 8.2 mg/dL 8.6-10.3 [facility] Carbon dioxide, total [Moles /volume] in Serum or PlasmaOrdered By: Favian Helm on 10-28-2022 CO2 [Moles/Vol] 25.7 mmol/L 21.0-31.0 [facility] Chloride [Moles/volume] in S andrea or PlasmaOrdered By: Favian Helm on 10-28-2022 Chloride [Moles/Vol] 98 mmol/L 98-107 [facility] Complete Blood Count Auto Di ffon 10-28-2022 Basophils (Bld) [#/Vol] 0.0 10*3/uL Normal 0.0-0.2 [facility] Comment on above: Result Comment: PERF ORMED BY: [facility] [address] [place] [address] PATHOLOGIST SHIPPING RECEIVING CLERK TANNER GAVIN M.D. Performed By: #### V [id number], MG, BMP, JOSE, FE and TIBC, RETIC #### [address] Basophils/100 WBC (Bld) 0.4 % Normal . [facility] Comment on above: Performed By: #### V [id number], MG, BMP, JOSE, FE and TIBC, RETIC #### [address] Eosinophils (Bld) [#/Vol] 0.1 10*3/uL Normal 0.0-0.45 [facility] Comment on above: Performed By: #### V [id number], MG, BMP, JOSE, FE and TIBC, RETIC #### [address] Eosinophils/100 WBC (Bld) 1.0 % Normal . [facility] Comment on above: Performed By: #### V [id number], MG, BMP, JOSE, FE and TIBC, RETIC #### [address] Erythrocyte distribution width (RBC) [Ratio] 16.5 % High 11.9-15.3 [facility] Comment on above: Performed By: #### V [id number], MG, BMP, JOSE, FE and TIBC, RETIC #### [address] Hematocrit (Bld) [Volume fraction] 29.9 % Low 34.0-46.4 [facility] Comment on above: Performed By: #### V [id number], MG, BMP, JOSE, FE and TIBC, RETIC #### [address] Hemoglobin (Bld) [Mass/Vol] 9.6 g/dL Low 11.8-15.4 [facility] Comment on above: Performed By: #### V [id number], MG, BMP, JOSE, FE and TIBC, RETIC #### [address] Lymphocytes (Bld) [#/Vol] 0.8 10*3/uL Low 1.00-4.8 [facility] Comment on above: Performed By: #### V [id number], MG, BMP, JOSE, FE and TIBC, RETIC #### [address] Lymphocytes/100 WBC (Bld) 12.8 % Normal . [facility] Comment on above: Performed By: #### V [id number], MG, BMP, JOSE, FE and TIBC, RETIC #### [address] MCH (RBC) [Entitic mass] 28.3 pg Normal 24.7-34.3 [facility] Comment on above: Performed By: #### V [id number], MG, BMP, JOSE, FE and TIBC, RETIC #### [address] MCV (RBC) [Entitic vol] 88.3 fL Normal 80-100 [facility] Comment on above: Performed By: #### V [id number], MG, BMP, JOSE, FE and TIBC, RETIC #### [address] Mean Corpuscular HGB Conc 32.0 g/dL Normal 32.0-35.0 [facility] Comment on above: Performed By: #### V [id number], MG, BMP, JOSE, FE and TIBC, RETIC #### [address] Monocytes (Bld) [#/Vol] 0.2 10*3/uL Normal 0.0-0.8 [facility] Comment on above: Performed By: #### V [id number], MG, BMP, JOSE, FE and TIBC, RETIC #### [address] Monocytes/100 WBC (Bld) 17.29 % Normal 0.00-20.00 [facility] Comment on above: Performed By: #### V [id number], MG, BMP, JOSE, FE and TIBC, RETIC #### [address] Monocytes/100 WBC (Bld) 2.5 % Normal . [facility] Comment on above: Performed By: #### V [id number], MG, BMP, JOSE, FE and TIBC, RETIC #### [address] Neutrophils (Bld) [#/Vol] 5.5 10*3/uL Normal 1.8-7.7 [facility] Comment on above: Performed By: #### V [id number], MG, BMP, JOSE, FE and TIBC, RETIC #### [address] Neutrophils/100 WBC (Bld) 83.3 % Normal . [facility] Comment on above: Performed By: #### V [id number], MG, BMP, JOSE, FE and TIBC, RETIC #### [address] NRBC% 0.0 /100{WBC} Normal 0-0.5 [facility] Comment on above: Performed By: #### V [id number], MG, BMP, JOSE, FE and TIBC, RETIC #### [address] Platelet mean volume (Bld) [Entitic vol] 7.3 fL Normal 6.3-10.7 [facility] Comment on above: Performed By: #### V [id number], MG, BMP, JOSE, FE and TIBC, RETIC #### [address] Platelets (Bld) [#/Vol] 260 10*3/uL Normal 150-450 [facility] Comment on above: Performed By: #### V [id number], MG, BMP, JOSE, FE and TIBC, RETIC #### [address] RBC (Bld) [#/Vol] 3.38 10*6/uL Low 3.60-5.00 [facility] Comment on above: Performed By: #### V [id number], MG, BMP, JOSE, FE and TIBC, RETIC #### [address] WBC (Bld) [#/Vol] 6.6 10*3/uL Normal 3.8-11.6 [facility] Comment on above: Performed By: #### V [id number], MG, BMP, JOSE, FE and TIBC, RETIC #### [address] Comprehensive Metabolic Pane sameer 10-28-2022 Albumin [Mass/Vol] 3.6 g/dL Normal 3.5-5.7 [facility] Comment on above: Performed By: #### V [id number], MG, BMP, JOSE, FE and TIBC, RETIC #### [address] Albumin/Globulin [Mass ratio] 1.6 {ratio} Normal [facility] Comment on above: Performed By: #### V [id number], MG, BMP, JOSE, FE and TIBC, RETIC #### [address] ALP [Catalytic activity/Vol] 84 U/L Normal 34-104 [facility] Comment on above: Performed By: #### V [id number], MG, BMP, JOSE, FE and TIBC, RETIC #### [address] ALT [Catalytic activity/Vol] 14 U/L Normal 7-52 [facility] Comment on above: Performed By: #### V [id number], MG, BMP, JOSE, FE and TIBC, RETIC #### [address] Anion gap [Moles/Vol] 10.0 mmol/L Normal 6.0-15.0 [facility] Comment on above: Performed By: #### V [id number], MG, BMP, JOSE, FE and TIBC, RETIC #### [facility] [address] AST [Catalytic activity/Vol] 21 U/L Normal 13-39 [facility] Comment on above: Performed By: #### V [id number], MG, BMP, JOSE, FE and TIBC, RETIC #### [facility] [address] Bilirubin [Mass/Vol] 0.3 mg/dL Normal 0.3-1.0 [facility] Comment on above: Performed By: #### V [id number], MG, BMP, JOSE, FE and TIBC, RETIC #### [address] Calcium [Mass/Vol] 8.2 mg/dL Low 8.6-10.3 [facility] Comment on above: Performed By: #### V [id number], MG, BMP, JOSE, FE and TIBC, RETIC #### [address] Chloride [Moles/Vol] 98 mmol/L Normal 98-107 [facility] Comment on above: Performed By: #### V [id number], MG, BMP, JOSE, FE and TIBC, RETIC #### [address] CO2 [Moles/Vol] 25.7 mmol/L Normal 21.0-31.0 [facility] Comment on above: Performed By: #### V [id number], MG, BMP, JOSE, FE and TIBC, RETIC #### [facility] [address] [place] [address] Creatinine [Mass/Vol] 1.23 mg/dL High 0.60-1.20 [facility] Comment on above: Performed By: #### V [id number], MG, BMP, JOSE, FE and TIBC, RETIC #### [facility] [address] [place] [address] Creatinine Clr Calc Pharmacy 48.79 [facility] Comment on above: Performed By: #### V [id number], MG, BMP, JOSE, FE and TIBC, RETIC #### [facility] [address] GFR/1.73 sq M.predicted MDRD (S/P/Bld) [Vol rate/Area] 50.309 mL/min/{1.73_m2} [facility] Comment on above: Performed By: #### V [id number], MG, BMP, JOSE, FE and TIBC, RETIC #### [facility] [address] Globulin (S) [Mass/Vol] 2.3 g/dL [facility] Comment on above: Performed By: #### V [id number], MG, BMP, JOSE, FE and TIBC, RETIC #### [facility] [address] Glucose [Mass/Vol] 98 mg/dL Normal 70-100 [facility] Comment on above: Result Comment: [facility] Glucose Reference Range is dependent on time and content of last meal. Glucose of more than 200 mg/dL in a nonstressed, ambulatory subject supports the diagnosis of Diabetes Mellitus. ADA recommended reference range Performed By: #### V [id number], MG, BMP, JOSE, FE and TIBC, RETIC #### [address] Potassium [Moles/Vol] 4.7 mmol/L Normal 3.5-5.1 [facility] Comment on above: Performed By: #### V [id number], MG, BMP, JOSE, FE and TIBC, RETIC #### [facility] [address] Protein [Mass/Vol] 5.9 g/dL Low 6.4-8.9 [facility] Comment on above: Performed By: #### V [id number], MG, BMP, JOSE, FE and TIBC, RETIC #### [address] Sodium [Moles/Vol] 129 mmol/L Low 136-145 [facility] Comment on above: Performed By: #### V [id number], MG, BMP, JOSE, FE and TIBC, RETIC #### [facility] [address] [place] [address] [place] Urea nitrogen [Mass/Vol] 36 mg/dL High 01-17 [facility] Comment on above: Performed By: #### V [id number], MG, BMP, JOSE, FE and TIBC, RETIC #### [facility] [address] [place] [address] [place] Creatine Kinaseon 10-28-2022 CK [Catalytic activity/Vol] 45 U/L Normal [facility] Comment on above: Performed By: #### V [id number], MG, BMP, JOSE, FE and TIBC, RETIC #### [address] Creatine kinase [Enzymatic a ctivity/volume] in Serum or PlasmaOrdered By: Favian Helm on 10-28-2022 CK [Catalytic activity/Vol] 45 U/L [facility] Creatinine [Mass/volume] in Serum or PlasmaOrdered By: Favian Helm on 10-28-2022 Creatinine [Mass/Vol] 1.23 mg/dL 0.60-1.20 [facility] ECG 12 lead ECGon 10-28-2022 ECG 12 lead ECG [facility] [place] [address] [place] [address] Electrocardiograph Report Signed Patient: Mabel Moser MR#: [id number] : 1960 Acct:[id number] Age/Sex: 62 / F ADM Date: 10/28/22 Loc: ER Room: Type: [facility] ER Attending Dr: Ordering Provider: [...] normal variant Confirmed by Chris MAURO DO ([id number]) on 10/28/2022 8:40:44 PM Referred By: Electronically Signed By:Chris MAURO DO Transcribed By: MUS Signed By Chris Mauro DO 0 10/28/222039 Normal [facility] Eosinophils Auto (Bld) [#/Vo l]Ordered By: Favian Helm on 10-28-2022 Eosinophils (Bld) [#/Vol] 0.1 10*3/uL 0.0-0.45 [facility] Eosinophils/100 WBC Auto (Bl d)Ordered By: Favian Helm on 10-28-2022 Eosinophils/100 WBC (Bld) 1.0 % . [facility] Erythrocyte distribution wid th Auto (RBC) [Ratio]Ordered By: Favian Helm on 10-28-2022 Erythrocyte distribution width (RBC) [Ratio] 16.5 % 11.9-15.3 [facility] Globulin Calc (S) [Mass/Vol] Ordered By: Favian Helm on 10-28-2022 Globulin (S) [Mass/Vol] 2.3 g/dL [facility] Glucose [Mass/volume] in Ser um or PlasmaOrdered By: Favian Helm on 10-28-2022 Glucose [Mass/Vol] 98 mg/dL 70-100 [facility] Comment on above: ADA recommended refe rence rangeRandom Glucose Reference Range is dependent on time and content of last meal. Glucose of more than 200 mg/dL in a nonstressed, ambulatory subject supports the diagnosis of Diabetes Mellitus. Hematocrit Auto (Bld) [Volum e fraction]Ordered By: Favian Helm on 10-28-2022 Hematocrit (Bld) [Volume fraction] 29.9 % 34.0-46.4 [facility] Hemoglobin [Mass/volume] in BloodOrdered By: Favian Helm 10-28-2022 Hemoglobin (Bld) [Mass/Vol] 9.6 g/dL 11.8-15.4 [facility] Laboratory - CoagulationOrde red By: Favian Helm on 10-28-2022 PT Coag (PPP) [Time] 11.0 s 9.0-12.9 [facility] Leukocytes [#/volume] correc nicol for nucleated erythrocytes in Blood by Automated counOrdered By: Favian Helm on 10-28-2022 WBC corrected for nucl RBC Auto (Bld) [#/Vol] 6.6 10*3/uL 3.8-11.6 [facility] Lymphocytes Auto (Bld) [#/Vo l]Ordered By: Favian Helm on 10-28-2022 Lymphocytes (Bld) [#/Vol] 0.8 10*3/uL 1.00-4.8 [facility] Lymphocytes/100 WBC Auto (Bl d)Ordered By: Favian Helm on 10-28-2022 Lymphocytes/100 WBC (Bld) 12.8 % . [facility] MCH Auto (RBC) [Entitic mass ]Ordered By: Favian Helm on 10-28-2022 MCH (RBC) [Entitic mass] 28.3 pg 24.7-34.3 [facility] MCHC Auto (RBC) [Mass/Vol]Or dered By: Favian Helm on 10-28-2022 MCHC (RBC) [Mass/Vol] 32.0 g/dL 32.0-35.0 [facility] MCV Auto (RBC) [Entitic vol] Ordered By: Favian Helm on 10-28-2022 MCV (RBC) [Entitic vol] 88.3 fL 80-100 [facility] Magnesiumon 10-28-2022 Magnesium [Mass/Vol] 1.9 mg/dL Normal 1.9-2.7 [facility] Comment on above: Result Comment: PERF ORMED BY: [facility] [address] [place] [address] PATHOLOGIST SHIPPING RECEIVING CLERK TANNER GAVIN M.D. Performed By: #### V [id number], MG, BMP, JOSE, FE and TIBC, RETIC #### [address] Magnesium [Mass/volume] in S andrea or PlasmaOrdered By: Favian Helm on 10-28-2022 Magnesium [Mass/Vol] 1.9 mg/dL 1.9-2.7 [facility] Monocyte distribution width [Entitic volume] in Blood by AutomatedOrdered By: Favian Helm on 10-28-2022 Monocyte distribution width Auto (Bld) [Entitic vol] 17.29 % 0.00-20.00 [facility] Monocytes Auto (Bld) [#/Vol] Ordered By: Favian Helm on 10-28-2022 Monocytes (Bld) [#/Vol] 0.2 10*3/uL 0.0-0.8 [facility] Monocytes/100 WBC Auto (Bld) Ordered By: Favian Helm on 10-28-2022 Monocytes/100 WBC (Bld) 2.5 % . [facility] Natriuretic peptide B [Mass/ Vol]Ordered By: Favian Helm on 10-28-2022 Natriuretic peptide B (Bld) [Mass/Vol] 551.0 pg/mL 5-100 [facility] Neutrophils Auto (Bld) [#/Vo l]Ordered By: Favian Helm on 10-28-2022 Neutrophils (Bld) [#/Vol] 5.5 10*3/uL 1.8-7.7 [facility] Neutrophils/100 WBC Auto (Bl d)Ordered By: Favian Helm on 10-28-2022 Neutrophils/100 WBC (Bld) 83.3 % . [facility] No Panel InformationOrdered By: Favian Helm on 10-28-2022 Estimated GFR (CKD-EPI) 50.309 mL/Min [facility] Creatinine Clearance (Chem 48.79 [facility] Nucleated erythrocytes [Pres ence] in Blood by Automated countOrdered By: Favian Helm on 10-28-2022 Nucleated RBC Auto Ql (Bld) 0.0 /100{WBC} 0-0.5 [facility] Office Visiton 10-28-2022 Follow-up visit [id number] Loren Moser 1960 F Date Provider Department Center 10/28/2022 [facility] No family history on file Level of Service:[address] [place] OFFICE/OUTPATIENT ESTABLISHED MOD MDM 30-39 MIN Normal [facility] Partial Thromboplastin Timeo n 10-28-2022 aPTT Coag (Bld) [Time] 31.7 s Normal 25.1-36.5 [facility] Comment on above: Result Comment: PERF ORMED BY: [facility] [address] [place] [address] PATHOLOGIST SHIPPING RECEIVING CLERK TANNER GAVIN M.D. Performed By: #### V [id number], MG, BMP, JOSE, FE and TIBC, RETIC #### [facility] [address] Platelet mean volume Auto (B ld) [Entitic vol]Ordered By: Favian Helm on 10-28-2022 Platelet mean volume (Bld) [Entitic vol] 7.3 fL 6.3-10.7 [facility] Platelet poor plasma interna tional normalized ratio (INR) by coagulation assay (relatOrdered By: Favian Helm on 10-28-2022 INR Coag (PPP) [Relative time] 1.0 {INR} [facility] Comment on above: INR Therapeutic Rang e [...] 10-28-2022 Platelets (Bld) [#/Vol] 260 10*3/uL 150-450 [facility] Potassium [Moles/volume] in Serum or PlasmaOrdered By: Favian Helm on 10-28-2022 Potassium [Moles/Vol] 4.7 mmol/L 3.5-5.1 [facility] Protein [Mass/volume] in Ser um or PlasmaOrdered By: Favian Helm on 10-28-2022 Protein [Mass/Vol] 5.9 g/dL 6.4-8.9 [facility] Prothrombin Time INRon 10-28 INR Coag (PPP) [Relative time] 1.0 {INR} Normal [facility] Comment on above: Result Comment: INR Therapeutic [...] 3 - 4.5 Performed By: #### V [id number], MG, BMP, JOSE, FE and TIBC, RETIC #### [facility] [address] [place] [address] PT Coag (PPP) [Time] 11.0 s Normal 9.0-12.9 [facility] Comment on above: Performed By: #### V [id number], MG, BMP, JOSE, FE and TIBC, RETIC #### [address] RBC Auto (Bld) [#/Vol]Ordere d By: Favian Helm on 10-28-2022 RBC (Bld) [#/Vol] 3.38 10*6/uL 3.60-5.00 [facility] Serum or plasma albumin/glob ulin mass ratioOrdered By: Favian Helm on 10-28-2022 Albumin/Globulin [Mass ratio] 1.6 {ratio} [facility] Serum or plasma anion gap de terminationOrdered By: Favian Helm on 10-28-2022 Anion gap [Moles/Vol] 10.0 mmol/L 6.0-15.0 [facility] Sodium [Moles/volume] in Ser um or PlasmaOrdered By: Favian Helm on 10-28-2022 Sodium [Moles/Vol] 129 mmol/L 136-145 [facility] Troponin I High Sensitivityo n 10-28-2022 Troponin I High Sensitivity 5.8 pg/mL Normal 0.0-15.0 [facility] Comment on above: Result Comment: PERF ORMED BY: [place] [address] PATHOLOGIST SHIPPING RECEIVING CLERK TANNER GAVIN M.D. Performed By: #### V [id number], MG, BMP, JOSE, FE and TIBC, RETIC #### [facility] [address] [place] [id number] [facility] Troponin I.cardiac [Mass/vol ume] in Serum or Plasma by Detection limit <= 0.01 ng/Ordered By: Favian Helm on 10-28-2022 Troponin I.cardiac DL <= 0.01 ng/mL [Mass/Vol] 5.8 pg/mL 0.0-15.0 [facility] Urea nitrogen [Mass/volume] in Serum or PlasmaOrdered By: Favian Helm on 10-28-2022 Urea nitrogen [Mass/Vol] 36 mg/dL 7-25 [facility] WBC Auto (Bld) [#/Vol]Ordere d By: Favian Helm on 10-28-2022 WBC (Bld) [#/Vol] 6.6 10*3/uL 3.8-11.6 [facility] XR chest 2V*on 10-28-2022 XR chest 2V* [facility] [place] [address] [place] [address] XRay Report Signed Patient: Mabel Moser MR#: [id number] : 1960 Acct:[id number] Age/Sex: 62 / F ADM Date: 10/28/22 Loc: ER Room: Type: [facility] ER Attending Dr: Copies to: Favian Helm PA-C Ordering Provider: Favian Helm PA-C Date of Service: 10/28/22 XR/XR chest 2V*: Shortness of Breath/Dyspnea Plain film chest 2 view HISTORY: Fluid overload. Shortness of breath. Headache. COMPARISON: 08/31/2018 FINDINGS: SUPPORT DEVICES: None POSTSURGICAL CHANGES: Right Gkpwow-n-Myoa intact with tip overlying the distal SVC. HEART: Within normal limits PULMONARY RAI: Within normal limits MEDIASTINUM: Unremarkable LUNGS AND PLEURA: No acute lung process, pleural effusion or pneumothorax identified. BONY STRUCTURES: Intact ADDITIONAL FINDINGS None XR/XR chest 2V* IMPRESSION: No acute process. Impression dictated by: Baljinder Ball M.D.10/28/2022 7:50 PM Dictation Location: [place] [address] Transcribed By: PWS 10/28/221949 Dictated By: Baljinder Ball DO 10/28/221945 Signed By: 10/28/221949 [facility] BNPon 10-26-2022 Natriuretic peptide B (Bld) [Mass/Vol] 2657.0 pg/mL Critically high <=900.0 [facility] Comment on above: Performed By: #### C MP, BNP ####[facility] [address] [place] [address]Dr. Airam Tripathi CBC AUTO DIFFon 10-26-2022 BASO # 0.0 103/ul Normal 0.0-0.1 [facility] Comment on above: Performed By: #### C BC ####[facility] [address] [place], [place] [address]Dr. Airam Tripathi Basophils/100 WBC (Bld) 0.5 % Normal 0.2-2.0 [facility] Comment on above: Performed By: #### C BC ####[facility] [address] [place], [place] [address]Dr. Airam Tripathi EO # 0.3 103/ul Normal 0.0-0.7 [facility] Comment on above: Performed By: #### C BC ####[facility] [address] [place], [place] [address]Dr. Airam Tripathi Eosinophils/100 WBC (Bld) 4.8 % Normal 0.9-7.0 [facility] Comment on above: Performed By: #### C BC ####[facility] [address] [place], [place] [address]Dr. Airam Tripathi Erythrocyte distribution width (RBC) [Ratio] 15.5 % Critically high 11.0-15.0 [facility] Comment on above: Performed By: #### C BC ####[facility] [address] [place], [place] [address]Dr. Airam Tripathi Hematocrit (Bld) [Volume fraction] 27.7 % Critically low 36.0-48.0 [facility] Comment on above: Performed By: #### C BC ####[facility] [address] [place], [place] [address]Dr. Airam Tripathi Hemoglobin (Bld) [Mass/Vol] 8.8 g/dL Critically low 12.0-16.0 [facility] Comment on above: Performed By: #### C BC ####[facility] [address] [place] [address]Dr. Airam Tripathi IG # 0.03 10e3/ul Normal 0.00-0.03 [facility] Comment on above: Performed By: #### C BC ####[facility] [address] [place] [address]Dr. Airam Tripathi IG % 0.5 % Normal 0.0-0.5 [facility] Comment on above: Performed By: #### C BC ####[facility] [address] [place] [address]DrKianna Tripathi LYMPH # 1.6 103/ul Normal 1.2-3.8 [facility] Comment on above: Performed By: #### C BC ####[facility] [address]jurbztgbb8154 [place] [address]Dr. Airam Tripathi Lymphocytes/100 WBC (Bld) 25.5 % Normal 20.5-60.0 [facility] Comment on above: Performed By: #### C BC ####[facility] Ndpkpruswz4970 [place] [address]Dr. Airam Tripathi MANUAL DIFF REQ NO Normal [facility] Comment on above: Performed By: #### C BC ####[facility] Zknpvuzbnj4313 [place] [address]Dr. Airam Tripathi MCH (RBC) [Entitic mass] 29.0 pg Normal 26.7-34.0 [facility] Comment on above: Performed By: #### C BC ####[facility] Toibkrislr6963 [place] [address]Dr. Airam Tripathi MCHC (RBC) [Mass/Vol] 31.8 g/dL Normal 29.9-35.2 [facility] Comment on above: Performed By: #### C BC ####[facility] Jlaxewwiyk0476 [place] [address]Dr. Airam Tripathi MCV (RBC) [Entitic vol] 91.4 fL Normal 81.0-99.0 [facility] Comment on above: Performed By: #### C BC ####[facility] Aafnmxxnrb1760 [place] [address]DrKianna Tripathi MONO # 0.5 103/ul Normal 0.3-0.8 [facility] Comment on above: Performed By: #### C BC ####[facility] Bzlqcenhnu44[address] [place], [place] [address]Dr. Airam Tripathi Monocytes/100 WBC (Bld) 7.5 % Normal 1.7-12.0 [facility] Comment on above: Performed By: #### C BC ####[facility] Mzjmfakcfc50[address] [place], [place] [address]Dr. Airam Tripathi NEUT # 3.9 103/ul Normal 1.4-6.5 [facility] Comment on above: Performed By: #### C BC ####[facility] Usvqyfnznp4604[address] [place], [place] [address]Dr. Airam Tripathi Neutrophils/100 WBC (Bld) 61.2 % Normal 43.0-75.0 [facility] Comment on above: Performed By: #### C BC ####[facility] Rcgigjnbbc017834 [address] [place], [place] [address]Dr. Airam Deuce Platelet mean volume (Bld) [Entitic vol] 9.4 fL Critically low 9.5-13.5 [facility] Comment on above: Performed By: #### C BC ####[facility] Rodpdykdgd890534 [address] [place], [place] [address]Dr. Airam Deuce PLT 247 103/ul Normal 150-450 [facility] Comment on above: Performed By: #### C BC ####[facility] Wnxfupygpi963834 [address] [place], [place] [address]DrKianna Airam Deuce RBC 3.03 106/ul Critically low 4.20-5.40 [facility] Comment on above: Performed By: #### C BC ####[facility] Caprojefqk814334 [address] [place], [place] [address]Dr. Airam Tripathi WBC 6.4 103/ul Normal 4.0-11.0 [facility] Comment on above: Performed By: #### C BC ####[facility] Hpivtbmxbm6989 [place] [address]Dr. Airam Tripathi PROF 14(COMP METB)on 023 Albumin [Mass/Vol] 2.5 g/dL Critically low 3.4-5.0 [facility] Comment on above: Performed By: #### C MP, BNP ####[facility] Ivkrbitela156734 [address] [place], [place] [address]Dr. Airam Tripathi Albumin/Globulin [Mass ratio] 0.9 {ratio} Normal [facility] Comment on above: Performed By: #### C MP, BNP ####[facility] Mqtgtxhlrj296234 [address] [place], [place] [address]Dr. Airam Tripathi ALP [Catalytic activity/Vol] 108 U/L Normal 46-116 [facility] Comment on above: Performed By: #### C MP, BNP ####[facility] Taiiusmsff711234 [address] [place], [place] [address]Dr. Airam Tripathi ALT [Catalytic activity/Vol] 20 U/L Normal 14-59 [facility] Comment on above: Performed By: #### C MP, BNP ####[facility] Ixoyeithnc073734 [address] [place], [place] [address]Dr. Airam Tripathi Anion gap [Moles/Vol] 10.4 mmol/L Normal [facility] Comment on above: Performed By: #### C MP, BNP ####[facility] Awvbpobsuo749634 [address] [place], [place] [address]Dr. Airam Tripathi AST [Catalytic activity/Vol] 20 U/L Normal 15-37 [facility] Comment on above: Performed By: #### C MP, BNP ####[facility] Xoxbdmthbl141234 [address] [place], [place] [address]Dr. Airam Tripathi Bilirubin [Mass/Vol] 0.2 mg/dL Normal 0.2-1.0 [facility] Comment on above: Performed By: #### C MP, BNP ####[facility] Ngfhiaewmy0919 [place] [address]Dr. Airam Tripathi Calcium [Mass/Vol] 8.0 mg/dL Critically low 8.5-10.1 [facility] Comment on above: Performed By: #### C MP, BNP ####[facility] Sucsmuanse946734 [address] [place], [place] [address]Dr. Airam Tripathi Chloride [Moles/Vol] 100 mmol/L Normal 98-107 [facility] Comment on above: Performed By: #### C MP, BNP ####[facility] Jucehxtvyj595234 [address] [place], [place] [address]Dr. Airam Tripathi CO2 [Moles/Vol] 28.6 mmol/L Normal 21.0-32.0 [facility] Comment on above: Performed By: #### C MP, BNP ####[facility] Zytogbsupc665134 [address] [place], [place] [address]Dr. Airam Tripathi Creatinine [Mass/Vol] 1.66 mg/dL Critically high 0.55-1.02 [facility] Comment on above: Performed By: #### C MP, BNP ####[facility] Yixsqpapzu326334 [address] [place], [place] [address]Dr. Airam Tripathi EGFR-AF [place]IZ[place] 38 mL/min/1.73m2 Critically low >=60 [facility] Comment on above: Performed By: #### C MP, BNP ####[facility] Jqannfkahu479834 [address] [place], [place] [address]Dr. Airam Tripathi EGFR-NON AF CITIZEN [place] 32 mL/min/1.73m2 Critically low >=60 [facility] Comment on above: Performed By: #### C MP, BNP ####[facility] Pvncmzikzl833634 [address] [place], [place] [address]Dr. Airam Tripathi Globulin (S) [Mass/Vol] 2.8 g/dL Normal [facility] Comment on above: Performed By: #### C MP, BNP ####[facility] Yhxwadbnjf533234 [address] [place], [place] [address]Dr. Airam Tripathi Glucose [Mass/Vol] 102 mg/dL Normal 74-106 [facility] Comment on above: Performed By: #### C MP, BNP ####[facility] Zslnhsybgc508334 [address] [place], [place] [address]Dr. Airam Tripathi Potassium [Moles/Vol] 5.0 mmol/L Normal 3.5-5.1 [facility] Comment on above: Performed By: #### C MP, BNP ####[facility] Spykzzsjik420334 [address] [place], [place] [address]Dr. Selenaneil Tripathi Protein [Mass/Vol] 5.3 g/dL Critically low 6.4-8.2 [facility] Comment on above: Performed By: #### C MP, BNP ####[facility] Lhfwssyqvb727234 [address] [place], [place] [address]Dr. Selenaneil Tripathi Sodium [Moles/Vol] 134 mmol/L Critically low 136-145 [facility] Comment on above: Performed By: #### C MP, BNP ####[facility] Slyojsbplm545634 [address] [place], [place] [address]Dr. Airam Tripathi Urea nitrogen [Mass/Vol] 45.0 mg/dL Critically high 7.0-18.0 [facility] Comment on above: Performed By: #### C MP, BNP ####[facility] Ajnhptrcbf212934 [address] [place], [place] [address]Dr. Selenaneil Tripathi Urea nitrogen/Creatinine [Mass ratio] 27.1 mg/mg Normal [facility] Comment on above: Performed By: #### C MP, BNP ####[facility] Betswkctbg020434 [address] [place], [place] [address]Dr. Airam Tripathi BNPon 10-25-2022 Natriuretic peptide B (Bld) [Mass/Vol] 4569.0 pg/mL Critically high <=900.0 [facility] Comment on above: Performed By: #### C MP, BNP ####[facility] Lwhfiutgus169934 [address] [place], [place] [address]Dr. Airam Tripathi CBC AUTO DIFFon 10-25-2022 BASO # 0.0 103/ul Normal 0.0-0.1 [facility] Comment on above: Performed By: #### C BC ####[facility] Cmhxaobqai374834 [address] [place], [place] [address]Dr. Airam Tripathi Basophils/100 WBC (Bld) 0.5 % Normal 0.2-2.0 [facility] Comment on above: Performed By: #### C BC ####[facility] Alwperxseh737834 [address] [place], [place] [address]Dr. Airam Tripathi EO # 0.3 103/ul Normal 0.0-0.7 [facility] Comment on above: Performed By: #### C BC ####[facility] Iruusjknjx414334 [address] [place], [place] [address]Dr. iAram Tripathi Eosinophils/100 WBC (Bld) 5.6 % Normal 0.9-7.0 [facility] Comment on above: Performed By: #### C BC ####[facility] Quvxyphqro789934 [address] [place], [place] [address]Dr. Airam Tripathi Erythrocyte distribution width (RBC) [Ratio] 15.7 % Critically high 11.0-15.0 [facility] Comment on above: Performed By: #### C BC ####[facility] Sjdkdtwjqg791034 [address] [place], [place] [address]Dr. Airam Tripathi Hematocrit (Bld) [Volume fraction] 30.1 % Critically low 36.0-48.0 [facility] Comment on above: Performed By: #### C BC ####[facility] Blqydvcutp131534 [address] [place], [place] [address]Dr. Airam Tripathi Hemoglobin (Bld) [Mass/Vol] 9.2 g/dL Critically low 12.0-16.0 [facility] Comment on above: Performed By: #### C BC ####[facility] Waaeukqyco946734 [address] [place], [place] [address]Dr. Airam Tripathi IG # 0.03 10e3/ul Normal 0.00-0.03 [facility] Comment on above: Performed By: #### C BC ####[facility] Ofqfbjiwgl758034 [address] [place], [place] [address]Dr. Airam Tripathi IG % 0.5 % Normal 0.0-0.5 [facility] Comment on above: Performed By: #### C BC ####[facility] Dlxqcblohx1773 [place] [address]Dr. Airam Deuce LYMPH # 1.7 103/ul Normal 1.2-3.8 [facility] Comment on above: Performed By: #### C BC ####[facility] Ohmtxibass1531 [place] [address]Dr. Airam Deuce Lymphocytes/100 WBC (Bld) 28.9 % Normal 20.5-60.0 [facility] Comment on above: Performed By: #### C BC ####[facility] Aahhgrafqd370834 [address] [place], [place] [address]Dr. Selenaneil Tripathi MANUAL DIFF REQ NO Normal [facility] Comment on above: Performed By: #### C BC ####[facility] Lpmbggygkk4675 [place] [address]Dr. Airam Deuce MCH (RBC) [Entitic mass] 28.4 pg Normal 26.7-34.0 [facility] Comment on above: Performed By: #### C BC ####[facility] Oxponkumcz248434 [address] [place], [place] [address]Dr. Airam Deuce MCHC (RBC) [Mass/Vol] 30.6 g/dL Normal 29.9-35.2 [facility] Comment on above: Performed By: #### C BC ####[facility] Pyikfkhtka0026[address] [place], [place] [address]Dr. Airam Tripathi MCV (RBC) [Entitic vol] 92.9 fL Normal 81.0-99.0 [facility] Comment on above: Performed By: #### C BC ####[facility] Bfzjutvpyd8967[address] [place], [place] [address]Dr. Airam Tripathi MONO # 0.5 103/ul Normal 0.3-0.8 [facility] Comment on above: Performed By: #### C BC ####[facility] Mkconikcph319[address] [place], [place] [address]Dr. Airam Tripathi Monocytes/100 WBC (Bld) 8.5 % Normal 1.7-12.0 [facility] Comment on above: Performed By: #### C BC ####[facility] Rkdakylcpv804034 [address] [place], [place] [address]Dr. Airam Tripathi NEUT # 3.2 103/ul Normal 1.4-6.5 [facility] Comment on above: Performed By: #### C BC ####[facility] Hvqxtglcjt0364 [place] [address]Dr. Airam Tripathi Neutrophils/100 WBC (Bld) 56.0 % Normal 43.0-75.0 [facility] Comment on above: Performed By: #### C BC ####[facility] Tchmjzcrjk4450 [place] [address]Dr. Airam Tripathi Platelet mean volume (Bld) [Entitic vol] 9.4 fL Critically low 9.5-13.5 [facility] Comment on above: Performed By: #### C BC ####[facility] Uqzgthmofl7103 [place] [address]DrKianna Airam Tripathi PLT 272 103/ul Normal 150-450 [facility] Comment on above: Performed By: #### C BC ####[facility] Dcjrpheghy5816[address] [place], [place] [address]DrKianna Airam Tripathi RBC 3.24 106/ul Critically low 4.20-5.40 [facility] Comment on above: Performed By: #### C BC ####[facility] Tgjfienqjq3118[address] [place], [place] [address]DrKianna Airam Tripathi WBC 5.8 103/ul Normal 4.0-11.0 [facility] Comment on above: Performed By: #### C BC ####[facility] Lvcccpwsjb9280 [place] [address]DrKianna Airam Tripathi OSMOLALITYon 10-25-2022 Osmolality [Osmolality] 282 mosm/kg Normal 275-295 [facility] Comment on above: Performed By: #### O SMO ####[facility] Hsagwzwcjy[address] [place], [place] [address]DrKianna Airam Deuce PROF 14(COMP METB)on 023 Albumin [Mass/Vol] 2.7 g/dL Critically low 3.4-5.0 [facility] Comment on above: Performed By: #### C MP, BNP ####[facility] Zwsxkorgrq3407 [place] [address]Dr. Airam Tripathi Albumin/Globulin [Mass ratio] 0.9 {ratio} Normal [facility] Comment on above: Performed By: #### C MP, BNP ####[facility] Fcvkdzemgn0963 [place] [address]Dr. Airam Tripathi ALP [Catalytic activity/Vol] 122 U/L Critically high 46-116 [facility] Comment on above: Performed By: #### C MP, BNP ####[facility] Haxayhckaw3459 [place] [address]Dr. Airam Tripathi ALT [Catalytic activity/Vol] 23 U/L Normal 14-59 [facility] Comment on above: Performed By: #### C MP, BNP ####[facility] Zqnbfvrhdh9101 [place] [address]Dr. Airam Tripathi Anion gap [Moles/Vol] 10.5 mmol/L Normal [facility] Comment on above: Performed By: #### C MP, BNP ####[facility] Sxhysnrpyc3368 [place] [address]Dr. Airam Deuce AST [Catalytic activity/Vol] 22 U/L Normal 15-37 [facility] Comment on above: Performed By: #### C MP, BNP ####[facility] Nyknoiqvwa6534 [place] [address]Dr. Airam Tripathi Bilirubin [Mass/Vol] 0.2 mg/dL Normal 0.2-1.0 [facility] Comment on above: Performed By: #### C MP, BNP ####[facility] Vfgkbzxoda5206 [place] [address]Dr. Airam Tripathi Calcium [Mass/Vol] 8.3 mg/dL Critically low 8.5-10.1 [facility] Comment on above: Performed By: #### C MP, BNP ####[facility] Jcasmcghrq0364 [place] [address]Dr. Airam Tripathi Chloride [Moles/Vol] 102 mmol/L Normal 98-107 [facility] Comment on above: Performed By: #### C MP, BNP ####[facility] Ulehvucetf4316 [place] [address]Dr. Airam Tripathi CO2 [Moles/Vol] 29.7 mmol/L Normal 21.0-32.0 [facility] Comment on above: Performed By: #### C MP, BNP ####[facility] Bmjvwkblej321134 [address] [place], [place] [address]Dr. Airam Tripathi Creatinine [Mass/Vol] 1.31 mg/dL Critically high 0.55-1.02 [facility] Comment on above: Performed By: #### C MP, BNP ####[facility] Jaumcqzvma6367[address] [place], [place] [address]Dr. Airam Tripathi EGFR-AF [place] 50 mL/min/1.73m2 Critically low >=60 [facility] Comment on above: Performed By: #### C MP, BNP ####[facility] Fccazvbrkn0364[address] [place], [place] [address]Dr. Airam Tripathi EGFR-NON AF [place]IZ[place] 41 mL/min/1.73m2 Critically low >=60 [facility] Comment on above: Performed By: #### C MP, BNP ####[facility] Hcsjznqaek741734 [address] [place], [place] [address]Dr. Airam Tripathi Globulin (S) [Mass/Vol] 2.9 g/dL Normal [facility] Comment on above: Performed By: #### C MP, BNP ####[facility] Scnfoxtguq144634 [address] [place], [place] [address]Dr. Airam Tripathi Glucose [Mass/Vol] 94 mg/dL Normal 74-106 [facility] Comment on above: Performed By: #### C MP, BNP ####[facility] Tyvshvxyzk302034 [address] [place], [place] [address]Dr. Airam Tripathi Potassium [Moles/Vol] 4.2 mmol/L Normal 3.5-5.1 [facility] Comment on above: Performed By: #### C MP, BNP ####[facility] Vnpdngcpak855534 [address] [place], [place] [address]Dr. Airam Tripathi Protein [Mass/Vol] 5.6 g/dL Critically low 6.4-8.2 [facility] Comment on above: Performed By: #### C MP, BNP ####[facility] Ngjqcnimar552234 [address] [place], [place] [address]Dr. Airam Tripathi Sodium [Moles/Vol] 138 mmol/L Normal 136-145 [facility] Comment on above: Performed By: #### C MP, BNP ####[facility] Qvhvqzpmoa334134 [address] [place], [place] [address]Dr. Airam Tripathi Urea nitrogen [Mass/Vol] 33.0 mg/dL Critically high 7.0-18.0 [facility] Comment on above: Performed By: #### C MP, BNP ####[facility] Sclkkghoom074734 [address] [place], [place] [address]Dr. Airam Tripathi Urea nitrogen/Creatinine [Mass ratio] 25.2 mg/mg Normal [facility] Comment on above: Performed By: #### C MP, BNP ####[facility] Jodldlucff511334 [address] [place], [place] [address]Dr. Airam Tripathi BNPon 10-24-2022 Natriuretic peptide B (Bld) [Mass/Vol] 3805.0 pg/mL Critically high <=900.0 [facility] Comment on above: Performed By: #### H STROPN, BNP, CMP ####[facility] Xpmfkcopwk120034 [address] [place], [place] [address]Dr. Airam Tripathi CBC AUTO DIFFon 10-24-2022 BASO # 0.0 103/ul Normal 0.0-0.1 [facility] Comment on above: Performed By: #### C BC ####[facility] Akcmhwmbeu321734 [address] [place], [place] [address]Dr. Airam Tripathi Basophils/100 WBC (Bld) 0.3 % Normal 0.2-2.0 [facility] Comment on above: Performed By: #### C BC ####[facility] Zgivkjvaek640234 [address] [place], [place] [address]Dr. Airam Tripathi EO # 0.3 103/ul Normal 0.0-0.7 [facility] Comment on above: Performed By: #### C BC ####[facility] Hlsvmwaxnr271134 [address] [place], [place] [address]Dr. Airam Tripathi Eosinophils/100 WBC (Bld) 4.2 % Normal 0.9-7.0 [facility] Comment on above: Performed By: #### C BC ####[facility] Pyspdslimt620734 [address] [place], [place] [address]Dr. Airam Tripathi Erythrocyte distribution width (RBC) [Ratio] 15.6 % Critically high 11.0-15.0 [facility] Comment on above: Performed By: #### C BC ####[facility] Idqpahzuzw648234 [address] [place], [place] [address]Dr. Airam Tripathi Hematocrit (Bld) [Volume fraction] 30.0 % Critically low 36.0-48.0 [facility] Comment on above: Performed By: #### C BC ####[facility] Lzkoucsxdu529334 [address] [place], [place] [address]Dr. Airam Tripathi Hemoglobin (Bld) [Mass/Vol] 9.3 g/dL Critically low 12.0-16.0 [facility] Comment on above: Performed By: #### C BC ####[facility] Sdnvhpyhnn99[address] [place], [place] [address]Dr. Airam Tripathi IG # 0.03 10e3/ul Normal 0.00-0.03 [facility] Comment on above: Performed By: #### C BC ####[facility] Iseeevpudo886734 [address] [place], [place] [address]Dr. Airam Tripathi IG % 0.5 % Normal 0.0-0.5 [facility] Comment on above: Performed By: #### C BC ####[facility] Nmkjculozs9444[address] [place], [place] [address]Dr. Airam Tripathi LYMPH # 1.4 103/ul Normal 1.2-3.8 [facility] Comment on above: Performed By: #### C BC ####[facility] Cbntzrecxm1323[address] [place], [place] [address]Dr. Airam Tripathi Lymphocytes/100 WBC (Bld) 22.5 % Normal 20.5-60.0 [facility] Comment on above: Performed By: #### C BC ####[facility] Ujsvicqrpf2370 [place] [address]Dr. Airam Deuce MANUAL DIFF REQ NO Normal [facility] Comment on above: Performed By: #### C BC ####[facility] Ggpxkmlynn8497 [place] [address]Dr. Airam Tripathi MCH (RBC) [Entitic mass] 28.7 pg Normal 26.7-34.0 [facility] Comment on above: Performed By: #### C BC ####[facility] Fwsgeialem2884 [place] [address]Dr. Airam Deuce MCHC (RBC) [Mass/Vol] 31.0 g/dL Normal 29.9-35.2 [facility] Comment on above: Performed By: #### C BC ####[facility] Juuptnyozf744634 [address] [place], [place] [address]Dr. Selenaneil Tripathi MCV (RBC) [Entitic vol] 92.6 fL Normal 81.0-99.0 [facility] Comment on above: Performed By: #### C BC ####[facility] Sllcwjlcvv4315[address] [place], [place] [address]Dr. Airam Deuce MONO # 0.4 103/ul Normal 0.3-0.8 [facility] Comment on above: Performed By: #### C BC ####[facility] Nhcwlypdyp7632[address] [place], [place] [address]Dr. Selenaneil Tripathi Monocytes/100 WBC (Bld) 7.3 % Normal 1.7-12.0 [facility] Comment on above: Performed By: #### C BC ####[facility] Hdasvaaato402[address] [place], [place] [address]Dr. Airam Deuce NEUT # 3.9 103/ul Normal 1.4-6.5 [facility] Comment on above: Performed By: #### C BC ####[facility] Zxlbfrkvag3913[address] [place], [place] [address]Dr. Airam Tripathi Neutrophils/100 WBC (Bld) 65.2 % Normal 43.0-75.0 [facility] Comment on above: Performed By: #### C BC ####[facility] Codtfaqvty7172 [place] [address]Dr. Airam Tripathi Platelet mean volume (Bld) [Entitic vol] 9.0 fL Critically low 9.5-13.5 [facility] Comment on above: Performed By: #### C BC ####[facility] Nsdwhsfsnm5562 [place] [address]Dr. Airam Tripathi PLT 247 103/ul Normal 150-450 [facility] Comment on above: Performed By: #### C BC ####[facility] Vvotenplgr2659 [place] [address]Dr. Airam Tripathi RBC 3.24 106/ul Critically low 4.20-5.40 [facility] Comment on above: Performed By: #### C BC ####[facility] Bvcnkmpeof2437[address] [place], [place] [address]Dr. Airam Tripathi WBC 6.0 103/ul Normal 4.0-11.0 [facility] Comment on above: Performed By: #### C BC ####[facility] Maehahflcy9767[address] [place], [place] [address]Dr. Airam Tripathi CULTURE URINEon 10-24-2022 CULTURE URINE Culture Observations : LIGHT GROWTH OF MIXED GENITAL GREGORY. NO POTENTIAL PATHOGENS SEEN. Normal [facility] Comment on above: Performed By: #### U RCX ####[facility] Gvuwzwmqpi722[address] [place], [place] [address]Dr. Airam Tripathi POINT OF CARE GLUCOSEon 05-0 Glucose [Mass/Vol] 118 mg/dL Critically high 74-106 [facility] Comment on above: Performed By: #### P OCGLUC ####[facility] Flquxjqamm3047[address] [address] [place], [place] [address]Dr. Selenaneil Tripathi PROF 14(COMP METB)on 023 Albumin [Mass/Vol] 3.1 g/dL Critically low 3.4-5.0 [facility] Comment on above: Performed By: #### H STROPN, BNP, CMP ####[facility] [address] [place] [address]Dr. Selenaneil Tripathi Albumin/Globulin [Mass ratio] 1.0 {ratio} Normal [facility] Comment on above: Performed By: #### H STROPN, BNP, CMP ####[facility] Bddcxniaep[address] [place] [address]Dr. Airam Tripathi ALP [Catalytic activity/Vol] 131 U/L Critically high 46-116 [facility] Comment on above: Performed By: #### H STROPN, BNP, CMP ####[facility] Qpkelkmceb9[address] [place] [address]Dr. Airam Tripathi ALT [Catalytic activity/Vol] 26 U/L Normal 14-59 [facility] Comment on above: Performed By: #### H STROPN, BNP, CMP ####[facility] Frhfqgtocf0587 [place] [address]Dr. Airam Tripathi Anion gap [Moles/Vol] 11.2 mmol/L Normal Th e [facility] Comment on above: Performed By: #### H STROPN, BNP, CMP ####[facility] Zwtdlklnvo24[address] [place], [place] [address]Dr. Airam Tripathi AST [Catalytic activity/Vol] 31 U/L Normal 15-37 [facility] Comment on above: Performed By: #### H STROPN, BNP, CMP ####[facility] Atgikrmfig[address] [place], [place] [address]Dr. Airam Tripathi Bilirubin [Mass/Vol] 0.2 mg/dL Normal 0.2-1.0 [facility] Comment on above: Performed By: #### H STROPN, BNP, CMP ####[facility] Wtfkbrqcsh[address] [place], [place] [address]Dr. Selenaneil Tripathi Calcium [Mass/Vol] 8.6 mg/dL Normal 8.5-10.1 [facility] Comment on above: Performed By: #### H STROPN, BNP, CMP ####[facility] Zxohreudke[address] [place], [place] [address]Dr. Airam Tripathi Chloride [Moles/Vol] 102 mmol/L Normal 98-107 [facility] Comment on above: Performed By: #### H STROPN, BNP, CMP ####[facility] Fbjvyfufiw[address] [place], [place] [address]Dr. Airam Tripathi CO2 [Moles/Vol] 27.4 mmol/L Normal 21.0-32.0 [facility] Comment on above: Performed By: #### H STROPN, BNP, CMP ####[facility] Kdddzdloap[address] [place] [address]Dr. Airam Tripathi Creatinine [Mass/Vol] 1.23 mg/dL Critically high 0.55-1.02 [facility] Comment on above: Performed By: #### H STROPN, BNP, CMP ####[facility] M[address]wgs[address]rpx[address] [place] [address]Dr. Airam Tripathi EGFR-AF CITIZ[place] 54 mL/min/1.73m2 Critically low >=60 [facility] Comment on above: Performed By: #### H STROPN, BNP, CMP ####[facility] Isrspfttjs[address] [place] [address]Dr. Airam Tripathi EGFR-NON AF CITIZEN OF [place] 45 mL/min/1.73m2 Critically low >=60 [facility] Comment on above: Performed By: #### H STROPN, BNP, CMP ####[facility] Wnriwxxexb87[address] [place], [place] [address]Dr. Selenaneil Tripathi Globulin (S) [Mass/Vol] 3.1 g/dL Normal [facility] Comment on above: Performed By: #### H STROPN, BNP, CMP ####[facility] Qqeahvzxyz[address] [place] [address]Dr. Selenaneil Triptahi Glucose [Mass/Vol] 90 mg/dL Normal 74-106 [facility] Comment on above: Performed By: #### H STROPN, BNP, CMP ####[facility] Apsgsrnyno13[address] [place] [address]Dr. Selenaneil Tripathi Potassium [Moles/Vol] 5.6 mmol/L Critically high 3.5-5.1 [facility] Comment on above: Performed By: #### H STROPN, BNP, CMP ####[facility] Qsydfezfjh84[address] [place] [address]Dr. Airam Tripathi Protein [Mass/Vol] 6.2 g/dL Critically low 6.4-8.2 [facility] Comment on above: Performed By: #### H STROPN, BNP, CMP ####[facility] Isyguvhswo25[address] [place] [address]Dr. Airam Tripathi Sodium [Moles/Vol] 135 mmol/L Critically low 136-145 [facility] Comment on above: Performed By: #### H STROPN, BNP, CMP ####[facility] Zodrhgkgwi4[address] [place] [address]Dr. Airam Tripathi Urea nitrogen [Mass/Vol] 38.0 mg/dL Critically high 7.0-18.0 [facility] Comment on above: Performed By: #### H STROPN, BNP, CMP ####[facility] Mojzatsohn[address] [place], [place] [address]Dr. Airam Tripathi Urea nitrogen/Creatinine [Mass ratio] 30.9 mg/mg Normal [facility] Comment on above: Performed By: #### H STROPN, BNP, CMP ####[facility] Chrwglnsbd1922[address] [place], [place] [address]Dr. Airam Tripathi TROPONIN, HIGH SENSITIVITYon 10-24-2022 HSTROP 8.0 pg/mL Normal 4.0-51.3 [facility] Comment on above: Result Comment: CUT- OFF POINTS HAVE BEEN ESTABLISHED BASED ON THE FOURTH UNIVERSAL DEFINITIONS OF MYOCARDIALINFARCTION. THE UPPER REFERENCE LIMIT (URL) OF TROPONIN, DEFINED THE 99TH PERCENTILE OFcTnI DISTRIBUTION IN A REFERENCE POPULATION, HAS BEEN CONFIRMED THE DECISION THRESHOLDFOR AK DIAGNOSIS. Performed By: #### H STROPN, BNP, CMP ####[facility] Qjttlehdnj25[address] [place] [address]Dr. Airam Tripathi UA RANDOM W/MICROSCOPICon BACTERIA NONE SEEN Normal NONE SEEN [facility] Comment on above: Performed By: #### U AMIC ####[facility] Qphvsudlbe65[address] [place] [address]Dr. Airam Tripathi Bilirubin Ql (U) Negative Normal NEGATIVE [facility] Comment on above: Performed By: #### U AMIC ####[facility] Wspkamqvln[address] [place], [place] [address]Dr. Airam Tripathi CAST NONE SEEN Normal NONE SEEN [facility] Comment on above: Performed By: #### U AMIC ####[facility] Wfqxceqhcg[address] [place] [address]Dr. Airam Tripathi Clarity (U) CLEAR Normal CLEAR [facility] Comment on above: Performed By: #### U AMIC ####[facility] Csdqlbamen[address] [place] [address]Dr. Selenaneil Tripathi Color (U) LT. YELLOW Normal YELLOW [facility] Comment on above: Performed By: #### U AMIC ####[facility] Kbhdfjffjm7526 [place] [address]Dr. Airam Tripathi Crystals LM Nom (Urine sed) NONE SEEN Normal NONE SEEN [facility] Comment on above: Performed By: #### U AMIC ####[facility] Lbqhjtyjcw62[address] [place] [address]Dr. Airam Tripathi Epithelial cells LM Ql (Urine sed) RARE Normal NONE SEEN /RARE [facility] Comment on above: Performed By: #### U AMIC ####[facility] Nobqduqdki1850[address] [place], [place] [address]Dr. Airam Tripathi Glucose Ql (U) Negative Normal NEGATIVE [facility] Comment on above: Performed By: #### U AMIC ####[facility] Chmzvjuefs67[address] [place], [place] [address]Dr. Airam Tripathi Hemoglobin Ql (U) Negative Normal NEGATIVE [facility] Comment on above: Performed By: #### U AMIC ####[facility] Ksrhuiimet5007[address] [place], [place] [address]Dr. Airam Tripathi Ketones Ql (U) Negative Normal NEGATIVE [facility] Comment on above: Performed By: #### U AMIC ####[facility] Pjdbusqsfn926434 [address] [place], [place] [address]Dr. Airam Tripathi LEUKOCYTES Negative Normal NEGATIVE [facility] Comment on above: Performed By: #### U AMIC ####[facility] Ndzcogvhgd2979[address] [place], [place] [address]Dr. Selenalan Tripathi MUCOUS NONE SEEN Normal NONE SEEN [facility] Comment on above: Performed By: #### U AMIC ####[facility] Wfsdcppiip6242 [place] [address]Dr. Airam Tripathi Nitrite Ql (U) Negative Normal NEGATIVE [facility] Comment on above: Performed By: #### U AMIC ####[facility] Towzivbddm1623 [place] [address]Dr. Airam Tripathi pH (U) 7.0 [pH] Normal 5-9 [facility] Comment on above: Performed By: #### U AMIC ####[facility] O[address]yfepiwf1663 [place] [address]Dr. Airam Deuce RBC 0-2 Normal 0-2 [facility] Comment on above: Performed By: #### U AMIC ####[facility] Ybquzqjioz586[address] [place] [address]Dr. Selenaneil Tripathi SPEC GRAVITY 1.015 Normal 1.005-<=1.02 5 [facility] Comment on above: Performed By: #### U AMIC ####[facility] Gvcknqqene43[address] [place], [place] [address]Dr. Airam Tripathi UA PROTEIN Negative Normal NEGATIVE/ TRACE [facility] Comment on above: Performed By: #### U AMIC ####[facility] Uwdizzfgho28[address] [place] [address]Dr. Airam Deuce Urobilinogen Qn (U) 0.2 {Ligia'U}/dL Normal 0.2 - 1. 0 [facility] Comment on above: Performed By: #### U AMIC ####[facility] Evflawzadm386[address] [place], [place] [address]Dr. Airam Deuce WBC NONE SEEN Normal NONE SEEN [facility] Comment on above: Performed By: #### U AMIC ####[facility] Rdtkxgspqi8[address] [place], [place] [address]Dr. Airam Deuce XR CHEST 1 Von 10-24-2022 XR CHEST 1 V Normal [facility] CBC AUTO DIFFon 10-19-2022 BASO # 0.0 103/ul Normal 0.0-0.1 [facility] Comment on above: Performed By: #### C BC ####[facility] [address]ydfalsjb44[address] [place] [id number]. Airam Tripathi Basophils/100 WBC (Bld) 0.5 % Normal 0.2-2.0 [facility] Comment on above: Performed By: #### C BC ####[facility] Ciwilartnt5932[address] [place], [place] [address]Dr. Airam Tripathi EO # 0.3 103/ul Normal 0.0-0.7 [facility] Comment on above: Performed By: #### C BC ####[facility] Ekuvgtmqkb0929[address] [place], [place] [address]Dr. Airam Tripathi Eosinophils/100 WBC (Bld) 3.3 % Normal 0.9-7.0 [facility] Comment on above: Performed By: #### C BC ####[facility] Ywidlbbnat708[address] [place], [place] [address]Dr. Airam Tripathi Erythrocyte distribution width (RBC) [Ratio] 15.0 % Normal 11.0-15.0 [facility] Comment on above: Performed By: #### C BC ####[facility] Omccnwzxju7[address] [place], [place] [address]Dr. Airam Tripathi Hematocrit (Bld) [Volume fraction] 32.9 % Critically low 36.0-48.0 [facility] Comment on above: Performed By: #### C BC ####[facility] Mkifhzdxut97[address] [place], [place] [address]Dr. Airam Tripathi Hemoglobin (Bld) [Mass/Vol] 10.1 g/dL Critically low 12.0-16.0 [facility] Comment on above: Performed By: #### C BC ####[facility] Ffnyvokxiz32[address] [place], [place] [address]Dr. Airam Tripathi IG # 0.04 10e3/ul Critically high 0.00-0.03 [facility] Comment on above: Performed By: #### C BC ####[facility] Mpvzlwifad35[address] [place], [place] [address]Dr. Selenaneil Tripathi IG % 0.5 % Normal 0.0-0.5 [facility] Comment on above: Performed By: #### C BC ####[facility] Vvjkfkcffm5[address] [place] [address]Dr. Airam Deuce LYMPH # 1.5 103/ul Normal 1.2-3.8 [facility] Comment on above: Performed By: #### C BC ####[facility] Ttnprimxim5390 [place] [address]Dr. Airam Deuce Lymphocytes/100 WBC (Bld) 18.1 % Critically low 20.5-60.0 [facility] Comment on above: Performed By: #### C BC ####[facility] Epeiadiqhg34[address] [place] [address]Dr. Airam Tripathi MANUAL DIFF REQ NO Normal [facility] Comment on above: Performed By: #### C BC ####[facility] Fdutwbciju8928 [place] [address]Dr. Airam Tripathi MCH (RBC) [Entitic mass] 28.3 pg Normal 26.7-34.0 [facility] Comment on above: Performed By: #### C BC ####[facility] Uqnrjmrmii180[address] [place], [place] [address]Dr. Airam Deuce MCHC (RBC) [Mass/Vol] 30.7 g/dL Normal 29.9-35.2 [facility] Comment on above: Performed By: #### C BC ####[facility] Ahukyaufie[address] [place] [address]Dr. Airam Tripathi MCV (RBC) [Entitic vol] 92.2 fL Normal 81.0-99.0 [facility] Comment on above: Performed By: #### C BC ####[facility] Zpcqxaadpz[address] [place], [place] [address]Dr. Airam Tripathi MONO # 0.7 103/ul Normal 0.3-0.8 [facility] Comment on above: Performed By: #### C BC ####[facility] Aowsfmtrvy1343 [place] [phone]. Airam Tripathi Monocytes/100 WBC (Bld) 7.7 % Normal 1.7-12.0 [facility] Comment on above: Performed By: #### C BC ####[facility] Nduryhrvcu1385 [place] [phone]. Airam Tripathi NEUT # 5.9 103/ul Normal 1.4-6.5 [facility] Comment on above: Performed By: #### C BC ####[facility] Jjcsthsfse0153 [place] [phone]. Airam Tripathi Neutrophils/100 WBC (Bld) 69.9 % Normal 43.0-75.0 [facility] Comment on above: Performed By: #### C BC ####[facility] Wwbyfgtvlv38[address] [place] [address]Dr. Selenaneil Deuce Platelet mean volume (Bld) [Entitic vol] 9.3 fL Critically low 9.5-13.5 [facility] Comment on above: Performed By: #### C BC ####[facility] Ifonpmnsob6595 [place] [address]Dr. Airam Tripathi PLT 293 103/ul Normal 150-450 [facility] Comment on above: Performed By: #### C BC ####[facility] Usnvedezpw3769 [place] [address]Dr. Airam Tripathi RBC 3.57 106/ul Critically low 4.20-5.40 [facility] Comment on above: Performed By: #### C BC ####[facility] Fpgohbcolt0315 [place] [address]Dr. Selenaneil Deuce WBC 8.4 103/ul Normal 4.0-11.0 [facility] Comment on above: Performed By: #### C BC ####[facility] Euxqoidgox7721 [place] [address]DrKianna Tripathi PROF 14(COMP METB)on 023 Albumin [Mass/Vol] 3.1 g/dL Critically low 3.4-5.0 [facility] Comment on above: Performed By: #### C MP ####[facility] Sithohhsvo3227 [place] [address]Dr. Airam Tripathi Albumin/Globulin [Mass ratio] 0.9 {ratio} Normal [facility] Comment on above: Performed By: #### C MP ####[facility] Vmjqrclyid2166 [place] [address]Dr. Airam Tripathi ALP [Catalytic activity/Vol] 117 U/L Critically high 46-116 [facility] Comment on above: Performed By: #### C MP ####[facility] Hmoraneggo0113 [place] [address]Dr. Airam Tripathi ALT [Catalytic activity/Vol] 24 U/L Normal 14-59 [facility] Comment on above: Performed By: #### C MP ####[facility] Budljwddgh1278 [place] [address]Dr. Airam Tripathi Anion gap [Moles/Vol] 11.1 mmol/L Normal [facility] Comment on above: Performed By: #### C MP ####[facility] Gzgznxbsgi7710[address] [place], [place] [address]Dr. Airam Tripathi AST [Catalytic activity/Vol] 22 U/L Normal 15-37 [facility] Comment on above: Performed By: #### C MP ####[facility] Lxsjegqkcc98[address] [place], [place] [address]Dr. Airam Tripathi Bilirubin [Mass/Vol] 0.2 mg/dL Normal 0.2-1.0 [facility] Comment on above: Performed By: #### C MP ####[facility] Nwwuttpstb4476[address] [place], [place] [address]Dr. Airam Tripathi Calcium [Mass/Vol] 8.4 mg/dL Critically low 8.5-10.1 [facility] Comment on above: Performed By: #### C MP ####[facility] Ylonejrwxu1960[address] [place], [place] [address]Dr. Airam Tripathi Chloride [Moles/Vol] 103 mmol/L Normal 98-107 [facility] Comment on above: Performed By: #### C MP ####[facility] Dmfuxvajmg3237[address] [place], [place] [address]Dr. Airam Tripathi CO2 [Moles/Vol] 25.0 mmol/L Normal 21.0-32.0 [facility] Comment on above: Performed By: #### C MP ####[facility] Woevupphzr9951 [place] [address]Dr. Airam Triapthi Creatinine [Mass/Vol] 1.27 mg/dL Critically high 0.55-1.02 [facility] Comment on above: Performed By: #### C MP ####[facility] Dkyvqxrjpb3393 [place] [address]Dr. Airam Tripathi EGFR-AF [place] 52 mL/min/1.73m2 Critically low >=60 [facility] Comment on above: Performed By: #### C MP ####[facility] Csrxulcqmp38[address] [place] [address]Dr. Airam Tripathi EGFR-NON AF [place]IZ[place] 43 mL/min/1.73m2 Critically low >=60 [facility] Comment on above: Performed By: #### C MP ####[facility] Qvnmwjbhby8817[address] [place], [place] [address]Dr. Airam Deuce Globulin (S) [Mass/Vol] 3.3 g/dL Normal [facility] Comment on above: Performed By: #### C MP ####[facility] Rwalazokzy2498 [place] [address]Dr. Airam Tripathi Glucose [Mass/Vol] 90 mg/dL Normal 74-106 [facility] Comment on above: Performed By: #### C MP ####[facility] Jvondpeuqn349[address] [place], [place] [address]Dr. Airam Tripathi Potassium [Moles/Vol] 5.1 mmol/L Normal 3.5-5.1 [facility] Comment on above: Performed By: #### C MP ####[facility] Thpoambvea088[address] [place], [place] [address]Dr. Airam Tripathi Protein [Mass/Vol] 6.4 g/dL Normal 6.4-8.2 [facility] Comment on above: Performed By: #### C MP ####[facility] Iagzzqcxav572[address] [place], [place] [address]Dr. Airam Tripathi Sodium [Moles/Vol] 134 mmol/L Critically low 136-145 [facility] Comment on above: Performed By: #### C MP ####[facility] Tylgzfhezs9[address] [place] [phone]. Airam Deuce Urea nitrogen [Mass/Vol] 33.0 mg/dL Critically high 7.0-18.0 [facility] Comment on above: Performed By: #### C MP ####[facility] Nmeettadmh9029 [place] [address]Dr. Airam Tripathi Urea nitrogen/Creatinine [Mass ratio] 26.0 mg/mg Normal [facility] Comment on above: Performed By: #### C MP ####[facility] Svoittnnzu5[address] [place] [address]Dr. Selenaneil Tripathi OSMOLALITYon 10-15-2022 Osmolality [Osmolality] 272 mosm/kg Critically low 275-295 [facility] Comment on above: Performed By: #### O SMO ####[facility] Myvevklkyj124[address] [place], [place] [address]Dr. Airam Tripathi 36on 10-12-2022 36 Can you get the henry ining labs please [facility] 36 [facility] lab called to re port critical BNP of 1,337. FYI [facility] BNPon 10-12-2022 Natriuretic peptide B (Bld) [Mass/Vol] 1337.0 pg/mL Critically high <=900.0 [facility] Comment on above: Performed By: #### B FINISHED YARN EXAMINER ####[facility] Bgxdkbfpxr3640[address] [place], [place] [address]Dr. Airam Deuce CBC AUTO DIFFon 10-12-2022 BASO # 0.0 103/ul Normal 0.0-0.1 [facility] Comment on above: Performed By: #### C BC ####[facility] Pulutnypvx7[address] [place] [address]Dr. Selenaneil Tripathi Basophils/100 WBC (Bld) 0.6 % Normal 0.2-2.0 [facility] Comment on above: Performed By: #### C BC ####[facility] Lvnbybviwo8747[address] [place], [place] [address]Dr. Airam Tripathi EO # 0.2 103/ul Normal 0.0-0.7 [facility] Comment on above: Performed By: #### C BC ####[facility] Yurjdndqww5278 [place] [address]Dr. Airam Tripathi Eosinophils/100 WBC (Bld) 2.3 % Normal 0.9-7.0 [facility] Comment on above: Performed By: #### C BC ####[facility] Hiawgvixuu9722 [place] [address]Dr. Airam Tripathi Erythrocyte distribution width (RBC) [Ratio] 15.1 % Critically high 11.0-15.0 [facility] Comment on above: Performed By: #### C BC ####[facility] Dilpkyumtc0428[address] [place], [place] [address]Dr. Airam Tripathi Hematocrit (Bld) [Volume fraction] 35.9 % Critically low 36.0-48.0 [facility] Comment on above: Performed By: #### C BC ####[facility] Gvfaxolhyw5[address] [place], [place] [address]Dr. Airam Tripathi Hemoglobin (Bld) [Mass/Vol] 11.4 g/dL Critically low 12.0-16.0 [facility] Comment on above: Performed By: #### C BC ####[facility] Mqaujonxev65[address] [place], [place] [address]Dr. Airam Tripathi IG # 0.03 10e3/ul Normal 0.00-0.03 [facility] Comment on above: Performed By: #### C BC ####[facility] Oxkopudqyo0640[address] [place], [place] [address]Dr. Airam Tripathi IG % 0.5 % Normal 0.0-0.5 [facility] Comment on above: Performed By: #### C BC ####[facility] Bsktojnmhm75[address] [place], [place] [address]DrKianna Airam Tripathi LYMPH # 1.1 103/ul Critically low 1.2-3.8 [facility] Comment on above: Performed By: #### C BC ####[facility] Kaymaseafg9286[address] [place], [place] [address]Dr. Airam Tripathi Lymphocytes/100 WBC (Bld) 17.2 % Critically low 20.5-60.0 [facility] Comment on above: Performed By: #### C BC ####[facility] Fhrvlngebn87[address] [place] [address]Dr. Airam Tripathi MANUAL DIFF REQ NO Normal [facility] Comment on above: Performed By: #### C BC ####[facility] Mcmzsumzvo8758 [place] [phone]. Airam Tripathi MCH (RBC) [Entitic mass] 28.8 pg Normal 26.7-34.0 [facility] Comment on above: Performed By: #### C BC ####[facility] Mdwlvsnlnc3684 [place] [address]Dr. Airam Tripathi MCHC (RBC) [Mass/Vol] 31.8 g/dL Normal 29.9-35.2 [facility] Comment on above: Performed By: #### C BC ####[facility] Kuqbsnsrvc6706[address] [place], [place] [address]Dr. Airam Tripathi MCV (RBC) [Entitic vol] 90.7 fL Normal 81.0-99.0 [facility] Comment on above: Performed By: #### C BC ####[facility] Cjdvljnski[address] [place], [place] [address]Dr. Airam Tripathi MONO # 0.5 103/ul Normal 0.3-0.8 [facility] Comment on above: Performed By: #### C BC ####[facility] Awojqbfrks115[address] [place], [place] [address]Dr. Airam Tripathi Monocytes/100 WBC (Bld) 7.7 % Normal 1.7-12.0 [facility] Comment on above: Performed By: #### C BC ####[facility] Rpdoeamzdf03[address] [place], [place] [address]DrKianna Tripathi NEUT # 4.7 103/ul Normal 1.4-6.5 [facility] Comment on above: Performed By: #### C BC ####[facility] Rzabmgszlu[address] [place], [place] [address]DrKianna Tripathi Neutrophils/100 WBC (Bld) 71.7 % Normal 43.0-75.0 [facility] Comment on above: Performed By: #### C BC ####[facility] Sbiexomqyk6[address] [place] [address]Dr. Airam Tripathi Platelet mean volume (Bld) [Entitic vol] 8.2 fL Critically low 9.5-13.5 [facility] Comment on above: Performed By: #### C BC ####[facility] Snpjaevgvr[address] [place] [address]DrKianna Tripathi PLT 292 103/ul Normal 150-450 [facility] Comment on above: Performed By: #### C BC ####[facility] Tzvygtuupg4691 [place] [address]Dr. Airam Tripathi RBC 3.96 106/ul Critically low 4.20-5.40 [facility] Comment on above: Performed By: #### C BC ####[facility] Edvfynsxir2387 [place] [address]DrKianna Tripathi WBC 6.6 103/ul Normal 4.0-11.0 [facility] Comment on above: Performed By: #### C BC ####[facility] Gvgjrukjnk7617 [place] [address]DrKianna Tripathi PROF 14(COMP METB)on 023 Albumin [Mass/Vol] 3.3 g/dL Critically low 3.4-5.0 [facility] Comment on above: Performed By: #### C MP ####[facility] Bibcpqwyhx1755 [place] [address]DrKianna Tripathi Albumin/Globulin [Mass ratio] 0.9 {ratio} Normal [facility] Comment on above: Performed By: #### C MP ####[facility] Fqvrjljjvn4096 [place] [address]DrKianna Tripathi ALP [Catalytic activity/Vol] 130 U/L Critically high 46-116 [facility] Comment on above: Performed By: #### C MP ####[facility] Ozzepinqwb3492 [place] [phone] Tripathi ALT [Catalytic activity/Vol] 23 U/L Normal 14-59 [facility] Comment on above: Performed By: #### C MP ####[facility] Lbafcvilgf1246 [place] [phone]. Airam Tripathi Anion gap [Moles/Vol] 11.7 mmol/L Normal Th e [facility] Comment on above: Performed By: #### C MP ####[facility] Xnwsbpawzk9621 [place] [phone]. Airam Tripathi AST [Catalytic activity/Vol] 23 U/L Normal 15-37 [facility] Comment on above: Performed By: #### C MP ####[facility] Hvlakvpfzt8311 [place] [phone]. Airam Deuce Bilirubin [Mass/Vol] 0.3 mg/dL Normal 0.2-1.0 [facility] Comment on above: Performed By: #### C MP ####[facility] Igjiwqudrs0557 [place] [address]Dr. Airam Deuce Calcium [Mass/Vol] 8.7 mg/dL Normal 8.5-10.1 [facility] Comment on above: Performed By: #### C MP ####[facility] Vxapybjyoz5299 [place] [address]Dr. Airam Deuce Chloride [Moles/Vol] 99 mmol/L Normal 98-107 [facility] Comment on above: Performed By: #### C MP ####[facility] Bjucarunlv6808 [place] [phone]. Airam Deuce CO2 [Moles/Vol] 28.5 mmol/L Normal 21.0-32.0 [facility] Comment on above: Performed By: #### C MP ####[facility] Qbeyfdmsqi0834 [place] [phone]. Airam Deuce Creatinine [Mass/Vol] 1.06 mg/dL Critically high 0.55-1.02 [facility] Comment on above: Performed By: #### C MP ####[facility] Wgkaijxzug1113 [place] [phone]. Airam Deuce EGFR-AF CITIZEN OF [place] >60 Normal >=60 [facility] Comment on above: Performed By: #### C MP ####[facility] Ydkrvtsvne6868 [place] [phone]. Airam Tripathi EGFR-NON AF CITIZEN OF [place] 53 mL/min/1.73m2 Critically low >=60 [facility] Comment on above: Performed By: #### C MP ####[facility] Vjsthtvdlw6685 [place] [address]Dr. Airam Tripathi Globulin (S) [Mass/Vol] 3.5 g/dL Normal [facility] Comment on above: Performed By: #### C MP ####[facility] Esgzpoofoq0689 [place] [address]Dr. Airam Tripathi Glucose [Mass/Vol] 79 mg/dL Normal 74-106 [facility] Comment on above: Performed By: #### C MP ####[facility] Nnlyjnjmul88[address] [place], [place] [address]Dr. Airam Tripathi Potassium [Moles/Vol] 4.2 mmol/L Normal 3.5-5.1 [facility] Comment on above: Performed By: #### C MP ####[facility] Gaaupkqsqm396234 [address] [place], [place] [address]Dr. Airam Tripathi Protein [Mass/Vol] 6.8 g/dL Normal 6.4-8.2 [facility] Comment on above: Performed By: #### C MP ####[facility] Wzplngkevc818434 [address] [place], [place] [address]Dr. Airam Tripathi Sodium [Moles/Vol] 135 mmol/L Critically low 136-145 [facility] Comment on above: Performed By: #### C MP ####[facility] Iaebxhhngp157034 [address] [place], [place] [address]Dr. Airam Tripathi Urea nitrogen [Mass/Vol] 16.0 mg/dL Normal 7.0-18.0 [facility] Comment on above: Performed By: #### C MP ####[facility] Gkzxlouikj4139[address] [place], [place] [address]Dr. Airam Tripathi Urea nitrogen/Creatinine [Mass ratio] 15.1 mg/mg Normal [facility] Comment on above: Performed By: #### C MP ####[facility] Vvuqonrcno5559 [place] [address]Dr. Airam Tripathi XR CHEST 1 Von 10-12-2022 XR CHEST 1 V Normal [facility] Office Visiton 10-10-2022 Follow-up visit [id number] Loren Moser 1960 F Date Provider Department Center 10/10/2022 ZANDRA NASH CARD [facility] No family history on file Level of Service:29632 [place] OFFICE/OUTPATIENT ESTABLISHED MOD MDM 30-39 MIN Reason for Visit and Comments: Congestive Heart Failure [127] Re-establish care [Other] Normal [facility] PRBC LEUKOREDUCEDon 10-10-19 23 PRBC LEUKOREDUCED Normal [facility] Comment on above: Performed By: #### P RBC ####[facility] Rnpouskzst3776 [place] [address]Dr. Airam Tripathi CULTURE URINEon 10-08-2022 CULTURE URINE Normal [facility] Comment on above: Performed By: #### U RCX ####[facility] Ccabvaasbg2092 [place] [address]Dr. Airam Tripathi OSMOLALITYon 10-08-2022 Osmolality [Osmolality] 282 mosm/kg Normal 275-295 [facility] Comment on above: Performed By: #### O SMO ####[facility] Ekqkzkiazp6857 [place] [address]Dr. Airam Tripathi CBC AUTO DIFFon 10-07-2022 BASO # 0.0 103/ul Normal 0.0-0.1 [facility] Comment on above: Performed By: #### C BC ####[facility] Rfaefsabdr3474 [place] [address]Dr. Airam Tripathi Basophils/100 WBC (Bld) 0.3 % Normal 0.2-2.0 [facility] Comment on above: Performed By: #### C BC ####[facility] Sijezacvkp5326 [place] [address]Dr. Airam Tripathi EO # 0.2 103/ul Normal 0.0-0.7 [facility] Comment on above: Performed By: #### C BC ####[facility] Jmbdgcvmlr2603 [place] [address]Dr. Airam Tripathi Eosinophils/100 WBC (Bld) 3.4 % Normal 0.9-7.0 [facility] Comment on above: Performed By: #### C BC ####[facility] Jbdqbsbniw2521 [place] [address]Dr. Airam Tripathi Erythrocyte distribution width (RBC) [Ratio] 15.2 % Critically high 11.0-15.0 [facility] Comment on above: Performed By: #### C BC ####[facility] Cgjddhtvjz49[address] [place], [place] [address]Dr. Airam Tripathi Hematocrit (Bld) [Volume fraction] 31.3 % Critically low 36.0-48.0 [facility] Comment on above: Performed By: #### C BC ####[facility] Slgmsgcxfq899934 [address] [place], [place] [address]Dr. Airam Tripathi Hemoglobin (Bld) [Mass/Vol] 9.9 g/dL Critically low 12.0-16.0 [facility] Comment on above: Performed By: #### C BC ####[facility] Rmudygrqyl063934 [address] [place], [place] [address]Dr. Airam Tripathi IG # 0.03 10e3/ul Normal 0.00-0.03 [facility] Comment on above: Performed By: #### C BC ####[facility] Qizmzyedrs955134 [address] [place], [place] [address]Dr. Airam Tripathi IG % 0.4 % Normal 0.0-0.5 [facility] Comment on above: Performed By: #### C BC ####[facility] Jmydzhtqic028434 [address] [place], [place] [address]Dr. Airam Tripathi LYMPH # 1.3 103/ul Normal 1.2-3.8 [facility] Comment on above: Performed By: #### C BC ####[facility] Aioafvkdfq504534 [address] [place], [place] [address]Dr. Airam Tripathi Lymphocytes/100 WBC (Bld) 19.0 % Critically low 20.5-60.0 [facility] Comment on above: Performed By: #### C BC ####[facility] Aosijifzqz1939 [place] [address]Dr. Airam Tripathi MANUAL DIFF REQ NO Normal [facility] Comment on above: Performed By: #### C BC ####[facility] Obyznvjzrn3973 [place] [phone]. Airam Tripathi MCH (RBC) [Entitic mass] 28.1 pg Normal 26.7-34.0 [facility] Comment on above: Performed By: #### C BC ####[facility] Pxaucohhxb8226 [place] [address]Dr. Airam Tripathi MCHC (RBC) [Mass/Vol] 31.6 g/dL Normal 29.9-35.2 [facility] Comment on above: Performed By: #### C BC ####[facility] Nbnnmzedjd7668[address] [place], [place] [address]Dr. Airam Tripathi MCV (RBC) [Entitic vol] 88.9 fL Normal 81.0-99.0 [facility] Comment on above: Performed By: #### C BC ####[facility] Lsyjzgotri7[address] [place], [place] [address]Dr. Airam Tripathi MONO # 0.6 103/ul Normal 0.3-0.8 [facility] Comment on above: Performed By: #### C BC ####[facility] Ejtksjshoc9[address] [place], [place] [address]Dr. Airam Tripathi Monocytes/100 WBC (Bld) 9.0 % Normal 1.7-12.0 [facility] Comment on above: Performed By: #### C BC ####[facility] Zomtnbxcdk5196[address] [place], [place] [address]Dr. Airam Tripathi NEUT # 4.5 103/ul Normal 1.4-6.5 [facility] Comment on above: Performed By: #### C BC ####[facility] Iwppqjwzgf174234 [address] [place], [place] [address]Dr. Airam Tripathi Neutrophils/100 WBC (Bld) 67.9 % Normal 43.0-75.0 [facility] Comment on above: Performed By: #### C BC ####[facility] Jjsrlgmfmr8247 [place] [phone]. Airam Tripathi Platelet mean volume (Bld) [Entitic vol] 9.1 fL Critically low 9.5-13.5 [facility] Comment on above: Performed By: #### C BC ####[facility] Lslrymgsub1228 [place] [address]Dr. Airam Tripathi PLT 256 103/ul Normal 150-450 [facility] Comment on above: Performed By: #### C BC ####[facility] Qyksfjufhp4562 [place] [phone]. Airam Tripathi RBC 3.52 106/ul Critically low 4.20-5.40 [facility] Comment on above: Performed By: #### C BC ####[facility] Lynkxydhdf1767 [place] [address]DrKianna Tripathi WBC 6.7 103/ul Normal 4.0-11.0 [facility] Comment on above: Performed By: #### C BC ####[facility] Gurmwrcqxi0853 [place] [phone] Tripathi PROF 14(COMP METB)on 023 Albumin [Mass/Vol] 2.8 g/dL Critically low 3.4-5.0 [facility] Comment on above: Performed By: #### C MP ####[facility] Ydzvbdhwav1435 [place] [address]DrKianna Tripathi Albumin/Globulin [Mass ratio] 0.9 {ratio} Normal [facility] Comment on above: Performed By: #### C MP ####[facility] Dwdpatoiav3775 [place] [phone] Tripathi ALP [Catalytic activity/Vol] 118 U/L Critically high 46-116 [facility] Comment on above: Performed By: #### C MP ####[facility] Iialixjnuo5661 [place] [address]DrKianna Tripathi ALT [Catalytic activity/Vol] 23 U/L Normal 14-59 [facility] Comment on above: Performed By: #### C MP ####[facility] Ebfopboivu8433 [place] [phone]. Airam Tripathi Anion gap [Moles/Vol] 12.5 mmol/L Normal [facility] Comment on above: Performed By: #### C MP ####[facility] Cblmkluvbc8776 [place] [phone]. Airam Tripathi AST [Catalytic activity/Vol] 21 U/L Normal 15-37 [facility] Comment on above: Performed By: #### C MP ####[facility] Sczieaztqi2288 [place] [phone]. Airam Deuce Bilirubin [Mass/Vol] 0.4 mg/dL Normal 0.2-1.0 [facility] Comment on above: Performed By: #### C MP ####[facility] Rxnhkfncwf27[address] [place], [place] [address]Dr. Airam Deuce Calcium [Mass/Vol] 8.2 mg/dL Critically low 8.5-10.1 [facility] Comment on above: Performed By: #### C MP ####[facility] Lvnnswrvrn1007[address] [place], [place] [address]Dr. Airam Deuce Chloride [Moles/Vol] 99 mmol/L Normal 98-107 [facility] Comment on above: Performed By: #### C MP ####[facility] Etdydpilxp793534 [address] [place], [place] [address]Dr. Airam Deuce CO2 [Moles/Vol] 24.9 mmol/L Normal 21.0-32.0 [facility] Comment on above: Performed By: #### C MP ####[facility] Pjwewftabp4004 [place] [address]Dr. Airam Deuce Creatinine [Mass/Vol] 1.61 mg/dL Critically high 0.55-1.02 [facility] Comment on above: Performed By: #### C MP ####[facility] Vvbwuscsop7071 [place] [address]Dr. Selenaneil Deuce EGFR-AF [place] 40 mL/min/1.73m2 Critically low >=60 [facility] Comment on above: Performed By: #### C MP ####[facility] Jmybaqzobn2237 [place] [phone]. Airam Tripathi EGFR-NON AF [place]IZ[place] 33 mL/min/1.73m2 Critically low >=60 [facility] Comment on above: Performed By: #### C MP ####[facility] Buccefrpqt9987 [place] [phone]. Airam Tripathi Globulin (S) [Mass/Vol] 3.2 g/dL Normal [facility] Comment on above: Performed By: #### C MP ####[facility] Hkwceargls4177 [place] [phone]. Airam Tripathi Glucose [Mass/Vol] 67 mg/dL Critically low 74-106 [facility] Comment on above: Performed By: #### C MP ####[facility] Nxyykesbot9548 [place] [phone]. Airam Tripathi Potassium [Moles/Vol] 5.4 mmol/L Critically high 3.5-5.1 [facility] Comment on above: Performed By: #### C MP ####[facility] Rhdmqsclao6968 [place] [phone]. Airam Tripathi Protein [Mass/Vol] 6.0 g/dL Critically low 6.4-8.2 [facility] Comment on above: Performed By: #### C MP ####[facility] Brasgomeqc5960 [place] [phone]. Airam Tripathi Sodium [Moles/Vol] 131 mmol/L Critically low 136-145 [facility] Comment on above: Performed By: #### C MP ####[facility] Xrodhghwmr5194 [place] [phone]. Airam Tripathi Urea nitrogen [Mass/Vol] 43.0 mg/dL Critically high 7.0-18.0 [facility] Comment on above: Performed By: #### C MP ####[facility] Raucrgmafd8702 [place] [phone]. Airam Deuce Urea nitrogen/Creatinine [Mass ratio] 26.7 mg/mg Normal [facility] Comment on above: Performed By: #### C MP ####[facility] Pjxbpnuxrc2700 [place] [address]Dr. Airam Tripathi CBC AUTO DIFFon 10-06-2022 BASO # 0.0 103/ul Normal 0.0-0.1 [facility] Comment on above: Performed By: #### C BC ####[facility] Uuuhzxigip049234 [address] [place], [place] [address]Dr. Airam Tripathi Basophils/100 WBC (Bld) 0.3 % Normal 0.2-2.0 [facility] Comment on above: Performed By: #### C BC ####[facility] Hxljvprnul593334 [address] [place], [place] [address]Dr. Airam Deuce EO # 0.2 103/ul Normal 0.0-0.7 [facility] Comment on above: Performed By: #### C BC ####[facility] Gpczliqown909934 [address] [place], [place] [address]Dr. Airam Tripathi Eosinophils/100 WBC (Bld) 3.1 % Normal 0.9-7.0 [facility] Comment on above: Performed By: #### C BC ####[facility] Mvonnippkt461134 [address] [place], [place] [address]Dr. Airam Tripathi Erythrocyte distribution width (RBC) [Ratio] 15.0 % Normal 11.0-15.0 [facility] Comment on above: Performed By: #### C BC ####[facility] Zndillfoeo428534 [address] [place], [place] [address]Dr. Airam Tripathi Hematocrit (Bld) [Volume fraction] 30.9 % Critically low 36.0-48.0 [facility] Comment on above: Performed By: #### C BC ####[facility] Uuikgzyvrw818834 [address] [place], [place] [address]Dr. Airam Tripathi Hemoglobin (Bld) [Mass/Vol] 10.1 g/dL Critically low 12.0-16.0 [facility] Comment on above: Result Comment: BIJU ENT RECIEVED 2 UNITS PRBC'S Performed By: #### C BC ####[facility] Axwlwjkcpg9538 [place] [address]Dr. Airam Tripathi IG # 0.03 10e3/ul Normal 0.00-0.03 [facility] Comment on above: Performed By: #### C BC ####[facility] Klqckqqlqd7682 [place] [address]DrKianna Airam Deuce IG % 0.4 % Normal 0.0-0.5 [facility] Comment on above: Performed By: #### C BC ####[facility] Qdzkqbcpsw0237[address] [place], [place] [address]DrKianna Airam Deuce LYMPH # 1.1 103/ul Critically low 1.2-3.8 [facility] Comment on above: Performed By: #### C BC ####[facility] Wrgefzqxsa4684[address] [place], [place] [address]DrKianna Selenaneil Tripathi Lymphocytes/100 WBC (Bld) 14.4 % Critically low 20.5-60.0 [facility] Comment on above: Performed By: #### C BC ####[facility] Swuoyoqksd6437[address] [place], [place] [address]DrKianna Selenaneil Tripathi MANUAL DIFF REQ NO Normal [facility] Comment on above: Performed By: #### C BC ####[facility] Vpymuwsixt181134 [address] [place], [place] [address]DrKianna Airam Deuce MCH (RBC) [Entitic mass] 28.9 pg Normal 26.7-34.0 [facility] Comment on above: Performed By: #### C BC ####[facility] Nccousoxmp4028[address] [place], [place] [address]DrKianna Airam Deuce MCHC (RBC) [Mass/Vol] 32.7 g/dL Normal 29.9-35.2 [facility] Comment on above: Performed By: #### C BC ####[facility] Ttrbtflzxg504234 [address] [place], [place] [address]DrKianna Airam Deuce MCV (RBC) [Entitic vol] 88.3 fL Normal 81.0-99.0 [facility] Comment on above: Performed By: #### C BC ####[facility] Nrifamjwde909234 [address] [place], [place] [address]Dr. Airam Tripathi MONO # 0.6 103/ul Normal 0.3-0.8 [facility] Comment on above: Performed By: #### C BC ####[facility] Vmfyekcxuk3776 [place] [address]Dr. Airam Tripathi Monocytes/100 WBC (Bld) 7.8 % Normal 1.7-12.0 [facility] Comment on above: Performed By: #### C BC ####[facility] Enrgvncjsb3087 [place] [address]Dr. Airam Tripathi NEUT # 5.5 103/ul Normal 1.4-6.5 [facility] Comment on above: Performed By: #### C BC ####[facility] Jouxdfjaqy2545 [place] [address]Dr. Airam Tripathi Neutrophils/100 WBC (Bld) 74.0 % Normal 43.0-75.0 [facility] Comment on above: Performed By: #### C BC ####[facility] Ilcjmupvwx082734 [address] [place], [place] [address]Dr. Airam Tripathi Platelet mean volume (Bld) [Entitic vol] 9.2 fL Critically low 9.5-13.5 [facility] Comment on above: Performed By: #### C BC ####[facility] Tekeluvajf6936 [place] [address]Dr. Airam Tripathi PLT 275 103/ul Normal 150-450 [facility] Comment on above: Performed By: #### C BC ####[facility] Lfuzsevprd8335[address] [place], [place] [address]Dr. Airam Tripathi RBC 3.50 106/ul Critically low 4.20-5.40 [facility] Comment on above: Performed By: #### C BC ####[facility] Ikmdyexnod043134 [address] [place], [place] [address]Dr. Airam Tripathi WBC 7.4 103/ul Normal 4.0-11.0 [facility] Comment on above: Performed By: #### C BC ####[facility] Htcupeiaux126234 [address] [place], [place] [address]Dr. Airam Tripathi BASO # 0.0 103/ul Normal 0.0-0.1 [facility] Comment on above: Performed By: #### C BC ####[facility] Onkotsvcsk2515 [place] [address]DrKianna Tripathi Basophils/100 WBC (Bld) 0.4 % Normal 0.2-2.0 [facility] Comment on above: Performed By: #### C BC ####[facility] Ybluogbrdu490234 [address] [place], [place] [address]DrKianna Tripathi EO # 0.2 103/ul Normal 0.0-0.7 [facility] Comment on above: Performed By: #### C BC ####[facility] Rweqytxpom376234 [address] [place], [place] [address]DrKianna Tripathi Eosinophils/100 WBC (Bld) 4.5 % Normal 0.9-7.0 [facility] Comment on above: Performed By: #### C BC ####[facility] Ufbmilmrsv1945[address] [place], [place] [address]DrKianna Tripathi Erythrocyte distribution width (RBC) [Ratio] 15.1 % Critically high 11.0-15.0 [facility] Comment on above: Performed By: #### C BC ####[facility] Uiufmhqxcm4085[address] [place], [place] [address]DrKianna Tripathi Hematocrit (Bld) [Volume fraction] 23.0 % Critically low 36.0-48.0 [facility] Comment on above: Performed By: #### C BC ####[facility] Ncrpmltean7[address] [place], [place] [address]DrKianna Tripathi Hemoglobin (Bld) [Mass/Vol] 7.2 g/dL Critically low 12.0-16.0 [facility] Comment on above: Performed By: #### C BC ####[facility] Sipwcadsvf2865[address] [place], [place] [address]DrKianna Tripathi IG # 0.02 10e3/ul Normal 0.00-0.03 [facility] Comment on above: Performed By: #### C BC ####[facility] Echmrtinmh0014[address] [place], [place] [address]Dr. Airam Tripathi IG % 0.4 % Normal 0.0-0.5 [facility] Comment on above: Performed By: #### C BC ####[facility] Ttrpkccxoc9252 [place] [address]DrKianna Tripathi LYMPH # 1.0 103/ul Critically low 1.2-3.8 [facility] Comment on above: Performed By: #### C BC ####[facility] Rnauzxqavb7336 [place] [address]DrKianna Tripathi Lymphocytes/100 WBC (Bld) 22.5 % Normal 20.5-60.0 [facility] Comment on above: Performed By: #### C BC ####[facility] Sagjmfhjjw20[address] [place], [place] [address]DrKianna Tripathi MANUAL DIFF REQ NO Normal [facility] Comment on above: Performed By: #### C BC ####[facility] Wotqrshzql9942 [place] [address]DrKianna Tripathi MCH (RBC) [Entitic mass] 28.3 pg Normal 26.7-34.0 [facility] Comment on above: Performed By: #### C BC ####[facility] Cfdwzikske[address] [place], [place] [address]DrKianna Tripathi MCHC (RBC) [Mass/Vol] 31.3 g/dL Normal 29.9-35.2 [facility] Comment on above: Performed By: #### C BC ####[facility] Lzjcryoskq8[address] [place], [place] [address]DrKianna Tripathi MCV (RBC) [Entitic vol] 90.6 fL Normal 81.0-99.0 [facility] Comment on above: Performed By: #### C BC ####[facility] Edktzwvhll433334 [address] [place], [place] [address]DrKianna Tripathi MONO # 0.5 103/ul Normal 0.3-0.8 [facility] Comment on above: Performed By: #### C BC ####[facility] Rroftwnrla870034 [address] [place], [place] [address]DrKianna Tripathi Monocytes/100 WBC (Bld) 9.7 % Normal 1.7-12.0 [facility] Comment on above: Performed By: #### C BC ####[facility] Udoeomfeeb8351 [place] [address]Dr. Airam Tripathi NEUT # 2.9 103/ul Normal 1.4-6.5 [facility] Comment on above: Performed By: #### C BC ####[facility] Bvnqgjvtji2831 [place] [address]Dr. Airam Tripathi Neutrophils/100 WBC (Bld) 62.5 % Normal 43.0-75.0 [facility] Comment on above: Performed By: #### C BC ####[facility] Egzyuearoy022434 [address] [place], [place] [address]Dr. Airam Tripathi Platelet mean volume (Bld) [Entitic vol] 8.9 fL Critically low 9.5-13.5 [facility] Comment on above: Performed By: #### C BC ####[facility] Xspasxspyd932934 [address] [place], [place] [address]Dr. Airam Tripathi PLT 210 103/ul Normal 150-450 [facility] Comment on above: Performed By: #### C BC ####[facility] Uigqtjhlvq490634 [address] [place], [place] [address]Dr. Airam Tripathi RBC 2.54 106/ul Critically low 4.20-5.40 [facility] Comment on above: Performed By: #### C BC ####[facility] Sztrqcdcnz249734 [address] [place], [place] [address]Dr. Airam Tripathi WBC 4.6 103/ul Normal 4.0-11.0 [facility] Comment on above: Performed By: #### C BC ####[facility] Eapevehllx9580[address] [place], [place] [address]DrKianna Airam Tripathi OSMOLALITYon 10-06-2022 Osmolality [Osmolality] 279 mosm/kg Normal 275-295 [facility] Comment on above: Performed By: #### O SMO ####[facility] Aymcqvocwn303534 [address] [place], [place] [address]Dr. Airam Tripathi POINT OF CARE GLUCOSEon 09-24 Glucose [Mass/Vol] 72 mg/dL Critically low 74-106 [facility] Comment on above: Performed By: #### P OCGLUC ####[facility] Dzsuismojm978534 [address] [place], [place] [address]Dr. Airam Tripathi Glucose [Mass/Vol] 102 mg/dL Normal 74-106 [facility] Comment on above: Performed By: #### P OCGLUC ####[facility] Nkmoqryyxi7688 [place] [address]Dr. Airam Tripathi Glucose [Mass/Vol] 165 mg/dL Critically high 74-106 [facility] Comment on above: Performed By: #### P OCGLUC ####[facility] Dklnxjukek015634 [address] [place], [place] [address]Dr. Airam Tripathi PROF 14(COMP METB)on 023 Albumin [Mass/Vol] 2.6 g/dL Critically low 3.4-5.0 [facility] Comment on above: Performed By: #### C MP ####[facility] Nimuhbemle532834 [address] [place], [place] [address]Dr. Airam Tripathi Albumin/Globulin [Mass ratio] 0.9 {ratio} Normal [facility] Comment on above: Performed By: #### C MP ####[facility] Cfuzgqrgqi154634 [address] [place], [place] [address]Dr. Airam Tripathi ALP [Catalytic activity/Vol] 107 U/L Normal 46-116 [facility] Comment on above: Performed By: #### C MP ####[facility] Ycxqgbvpbc6880 [place] [address]Dr. Airam Tripathi ALT [Catalytic activity/Vol] 22 U/L Normal 14-59 [facility] Comment on above: Performed By: #### C MP ####[facility] Yqjojngcdc567734 [address] [place], [place] [address]Dr. Airam Tripathi Anion gap [Moles/Vol] 10.0 mmol/L Normal [facility] Comment on above: Performed By: #### C MP ####[facility] Cwbjabzsko970634 [address] [place], [place] [address]Dr. Airam Tripathi AST [Catalytic activity/Vol] 19 U/L Normal 15-37 [facility] Comment on above: Performed By: #### C MP ####[facility] Lmvqlmisyv7359 [place] [address]Dr. Airam Deuce Bilirubin [Mass/Vol] 0.2 mg/dL Normal 0.2-1.0 [facility] Comment on above: Performed By: #### C MP ####[facility] Dzhnctunul709734 [address] [place], [place] [address]Dr. Airam Deuce Calcium [Mass/Vol] 8.1 mg/dL Critically low 8.5-10.1 [facility] Comment on above: Performed By: #### C MP ####[facility] Yjiuhuqlka057234 [address] [place], [place] [address]Dr. Airam Tripathi Chloride [Moles/Vol] 100 mmol/L Normal 98-107 [facility] Comment on above: Performed By: #### C MP ####[facility] Zuqqhcstwv221034 [address] [place], [place] [address]Dr. Airam Tripathi CO2 [Moles/Vol] 26.2 mmol/L Normal 21.0-32.0 [facility] Comment on above: Performed By: #### C MP ####[facility] Knactlqecs076334 [address] [place], [place] [address]Dr. Airam Tripathi Creatinine [Mass/Vol] 1.90 mg/dL Critically high 0.55-1.02 [facility] Comment on above: Performed By: #### C MP ####[facility] Bocmcidblf233534 [address] [place], [place] [address]Dr. Airam Tripathi EGFR-AF CITIZEN [place] 33 mL/min/1.73m2 Critically low >=60 [facility] Comment on above: Performed By: #### C MP ####[facility] Dajdufuize446134 [address] [place], [place] [address]Dr. Airam Tripathi EGFR-NON AF CITIZEN OF [place] 27 mL/min/1.73m2 Critically low >=60 [facility] Comment on above: Performed By: #### C MP ####[facility] Rmsnqkuzil748934 [address] [place], [place] [address]Dr. Airam Tripathi Globulin (S) [Mass/Vol] 2.8 g/dL Normal [facility] Comment on above: Performed By: #### C MP ####[facility] Gkxffbepri608434 [address] [place], [place] [address]Dr. Airam Deuce Glucose [Mass/Vol] 115 mg/dL Critically high 74-106 [facility] Comment on above: Performed By: #### C MP ####[facility] Hfprmtdyih566934 [address] [place], [place] [address]Dr. Airam Tripathi Potassium [Moles/Vol] 5.2 mmol/L Critically high 3.5-5.1 [facility] Comment on above: Performed By: #### C MP ####[facility] Luavbmmnis298334 [address] [place], [place] [address]Dr. Airam Tripathi Protein [Mass/Vol] 5.4 g/dL Critically low 6.4-8.2 [facility] Comment on above: Performed By: #### C MP ####[facility] Abclwandxr568834 [address] [place], [place] [address]Dr. Airam Tripathi Sodium [Moles/Vol] 131 mmol/L Critically low 136-145 [facility] Comment on above: Performed By: #### C MP ####[facility] Urgfjvimck876834 [address] [place], [place] [address]Dr. Airam Tripathi Urea nitrogen [Mass/Vol] 41.0 mg/dL Critically high 7.0-18.0 [facility] Comment on above: Performed By: #### C MP ####[facility] Fqvkgqddin073334 [address] [place], [place] [address]Dr. Airam Tripathi Urea nitrogen/Creatinine [Mass ratio] 21.6 mg/mg Normal [facility] Comment on above: Performed By: #### C MP ####[facility] Qteobisres113334 [address] [place], [place] [address]Dr. Airam Tripathi TYPE AND SCREENon 10-06-2022 TYPE AND SCREEN Negative Normal [facility] Comment on above: Performed By: #### T NS ####[facility] Aachetnjgh077434 [address] [place], [place] [address]Dr. Airam Tripathi CBC AUTO DIFFon 10-05-2022 BASO # 0.0 103/ul Normal 0.0-0.1 [facility] Comment on above: Performed By: #### C BC ####[facility] Qglvnjhbup0646 [place] [address]Dr. Airam Tripathi Basophils/100 WBC (Bld) 0.5 % Normal 0.2-2.0 [facility] Comment on above: Performed By: #### C BC ####[facility] Mefpwaoimf2113 [place] [address]Dr. Airam Tripathi EO # 0.2 103/ul Normal 0.0-0.7 [facility] Comment on above: Performed By: #### C BC ####[facility] Xjgjnfkkan717834 [address] [place], [place] [address]Dr. Selenaneil Deuce Eosinophils/100 WBC (Bld) 3.2 % Normal 0.9-7.0 [facility] Comment on above: Performed By: #### C BC ####[facility] Xfvnaneyyc214234 [address] [place], [place] [address]Dr. Airam Tripathi Erythrocyte distribution width (RBC) [Ratio] 15.2 % Critically high 11.0-15.0 [facility] Comment on above: Performed By: #### C BC ####[facility] Jdxqvkfdra5112 [place] [address]Dr. Airam Tripathi Hematocrit (Bld) [Volume fraction] 24.7 % Critically low 36.0-48.0 [facility] Comment on above: Performed By: #### C BC ####[facility] Uqwavwmevc3801 [place] [address]Dr. Airam Tripathi Hemoglobin (Bld) [Mass/Vol] 7.6 g/dL Critically low 12.0-16.0 [facility] Comment on above: Performed By: #### C BC ####[facility] Ygnsfhendz8967 [place] [address]Dr. Airam Tripathi IG # 0.02 10e3/ul Normal 0.00-0.03 [facility] Comment on above: Performed By: #### C BC ####[facility] Ksjrsgergj8142 [place] [id number]. Airam Deuce IG % 0.3 % Normal 0.0-0.5 [facility] Comment on above: Performed By: #### C BC ####[facility] Yimzvnbphr1068 [place] [address]Dr. Airam Deuce LYMPH # 1.1 103/ul Critically low 1.2-3.8 [facility] Comment on above: Performed By: #### C BC ####[facility] Rejycxudye8928 [place] [address]Dr. Airam Deuce Lymphocytes/100 WBC (Bld) 18.4 % Critically low 20.5-60.0 [facility] Comment on above: Performed By: #### C BC ####[facility] Eidbljfeau9959 [place] [address]Dr. Selenaneil Tripathi MANUAL DIFF REQ NO Normal [facility] Comment on above: Performed By: #### C BC ####[facility] Krkuhjyhwf8870 [place] [address]Dr. Airam Deuce MCH (RBC) [Entitic mass] 28.5 pg Normal 26.7-34.0 [facility] Comment on above: Performed By: #### C BC ####[facility] Wdhmtnlvmw358334 [address] [place], [place] [address]Dr. Airam Tripathi MCHC (RBC) [Mass/Vol] 30.8 g/dL Normal 29.9-35.2 [facility] Comment on above: Performed By: #### C BC ####[facility] Uxhqxdqxnw3787 [place] [address]Dr. Airam Deuce MCV (RBC) [Entitic vol] 92.5 fL Normal 81.0-99.0 [facility] Comment on above: Performed By: #### C BC ####[facility] Rbocmtapyz349734 [address] [place], [place] [address]Dr. Airam Tripathi MONO # 0.6 103/ul Normal 0.3-0.8 [facility] Comment on above: Performed By: #### C BC ####[facility] Iefogknixc6683 [place] [address]Dr. Airam Tripathi Monocytes/100 WBC (Bld) 10.0 % Normal 1.7-12.0 [facility] Comment on above: Performed By: #### C BC ####[facility] Mgvbsjtlvl7332 [place] [address]Dr. Airam Tripathi NEUT # 4.0 103/ul Normal 1.4-6.5 [facility] Comment on above: Performed By: #### C BC ####[facility] Utjsaudlqn9740 [place] [address]Dr. Airam Tripathi Neutrophils/100 WBC (Bld) 67.6 % Normal 43.0-75.0 [facility] Comment on above: Performed By: #### C BC ####[facility] Rpovneepih8089 [place] [address]Dr. Airam Tripathi Platelet mean volume (Bld) [Entitic vol] 8.8 fL Critically low 9.5-13.5 [facility] Comment on above: Performed By: #### C BC ####[facility] Uhurmlcnfs715934 [address] [place], [place] [address]Dr. Airam Tripathi PLT 226 103/ul Normal 150-450 [facility] Comment on above: Performed By: #### C BC ####[facility] Hcbyswpaec385634 [address] [place], [place] [address]Dr. Airam Tripathi RBC 2.67 106/ul Critically low 4.20-5.40 [facility] Comment on above: Performed By: #### C BC ####[facility] Ukrteykuea078834 [address] [place], [place] [address]Dr. Airam Tripathi WBC 5.9 103/ul Normal 4.0-11.0 [facility] Comment on above: Performed By: #### C BC ####[facility] Zyvqjuzavt639934 [address] [place], [place] [address]Dr. Airam Tripathi [facility]24 SARS-CoV-2 (COVID-19) RNA MIKE+probe Ql (Unsp spec) Not detected Normal NOT DETECTED [facility] Comment on above: Result Comment: [...] for this test is supported by the Labor Relations Analyst of Health and Human Service's declaration that [...] be used). Performed By: #### C VDTBH ####[facility] Wleoikvmux714534 [address] [place], [place] [address]DrKianna Tripathi MAGNESIUMon 10-05-2022 Magnesium [Mass/Vol] 1.7 mg/dL Critically low 1.8-2.4 [facility] Comment on above: Performed By: #### M G, CMP ####[facility] Slfalssocr169034 [address] [place], [place] [address]Dr. Airam Tripathi POINT OF CARE GLUCOSEon 09-24 Glucose [Mass/Vol] 92 mg/dL Normal 74-106 [facility] Comment on above: Performed By: #### P OCGLUC ####[facility] Rqudzbrrzx941534 [address] [place], [place] [address]Dr. Airam Tripathi PROF 14(COMP METB)on 023 Albumin [Mass/Vol] 2.9 g/dL Critically low 3.4-5.0 Th [facility] Comment on above: Performed By: #### M G, CMP ####[facility] Kqrwmwpmev551834 [address] [place], [place] [address]DrKianna Tripathi Albumin/Globulin [Mass ratio] 0.9 {ratio} Normal [facility] Comment on above: Performed By: #### M Yumiko, CMP ####[facility] Hbgyvnynxh7680 [place] [address]Dr. Airam Tripathi ALP [Catalytic activity/Vol] 122 U/L Critically high 46-116 [facility] Comment on above: Performed By: #### Nadya Yumiko, CMP ####[facility] Ymatqpzovm787634 [address] [place], [place] [address]Dr. Airam Tripathi ALT [Catalytic activity/Vol] 24 U/L Normal 14-59 [facility] Comment on above: Performed By: #### Nadya G, CMP ####[facility] Ricktxckoo101934 [address] [place], [place] [address]Dr. Airam Tripathi Anion gap [Moles/Vol] 13.1 mmol/L Normal [facility] Comment on above: Performed By: #### Nadya Calderon, CMP ####[facility] Feeoikzguy807534 [address] [place], [place] [address]Dr. Airam Tripathi AST [Catalytic activity/Vol] 21 U/L Normal 15-37 [facility] Comment on above: Performed By: #### Nadya Calderon, CMP ####[facility] Juzsrrrqxm895934 [address] [place], [place] [address]Dr. Airam Tripathi Bilirubin [Mass/Vol] 0.2 mg/dL Normal 0.2-1.0 [facility] Comment on above: Performed By: #### Nadya Calderon, CMP ####[facility] Spvsjsucyu796[address] [place], [place] [address]Dr. Airam Tripathi Calcium [Mass/Vol] 8.4 mg/dL Critically low 8.5-10.1 [facility] Comment on above: Performed By: #### Nadya Calderon, CMP ####[facility] Guprmekifb121634 [address] [place], [place] [address]Dr. Airam Deuce Chloride [Moles/Vol] 102 mmol/L Normal 98-107 [facility] Comment on above: Performed By: #### Nadya Calderon, CMP ####[facility] Lhsikarmfe225134 [address] [place], [place] [address]Dr. Airam Tripathi CO2 [Moles/Vol] 23.2 mmol/L Normal 21.0-32.0 [facility] Comment on above: Performed By: #### Nadya Calderon, CMP ####[facility] Dcuzkjoxwq2793 [place] [address]Dr. Selenaneil Deuce Creatinine [Mass/Vol] 1.96 mg/dL Critically high 0.55-1.02 [facility] Comment on above: Performed By: #### M G, CMP ####[facility] Czgpaoveip686634 [address] [place], [place] [address]Dr. Airam Tripathi EGFR-AF [place]IZ[place] 32 mL/min/1.73m2 Critically low >=60 [facility] Comment on above: Performed By: #### M G, CMP ####[facility] Fqsjosfonf983234 [address] [place], [place] [address]Dr. Airam Tripathi EGFR-NON AF CITIZEN OF [place] 26 mL/min/1.73m2 Critically low >=60 [facility] Comment on above: Performed By: #### M G, CMP ####[facility] Caixpzmqkf543034 [address] [place], [place] [address]Dr. Airam Tripathi Globulin (S) [Mass/Vol] 3.2 g/dL Normal [facility] Comment on above: Performed By: #### M G, CMP ####[facility] Czlpbmeqnp134334 [address] [place], [place] [address]Dr. Airam Tripathi Glucose [Mass/Vol] 68 mg/dL Critically low 74-106 [facility] Comment on above: Performed By: #### M G, CMP ####[facility] Mzrozjxugf716534 [address] [place], [place] [address]Dr. Airam Tripathi Potassium [Moles/Vol] 5.3 mmol/L Critically high 3.5-5.1 [facility] Comment on above: Performed By: #### M G, CMP ####[facility] Ybtmkrwimt145934 [address] [place], [place] [address]Dr. Airam Tripathi Protein [Mass/Vol] 6.1 g/dL Critically low 6.4-8.2 [facility] Comment on above: Performed By: #### M G, CMP ####[facility] Dnvcqhycsz381734 [address] [place], [place] [address]Dr. Airam Tripathi Sodium [Moles/Vol] 133 mmol/L Critically low 136-145 [facility] Comment on above: Performed By: #### M G, CMP ####[facility] Qexqfbjyyy633334 [address] [place], [place] [address]Dr. Airam Tripathi Urea nitrogen [Mass/Vol] 39.0 mg/dL Critically high 7.0-18.0 [facility] Comment on above: Performed By: #### M G, CMP ####[facility] Lsnitndwqe462934 [address] [place], [place] [address]Dr. Airam Tripathi Urea nitrogen/Creatinine [Mass ratio] 19.9 mg/mg Normal [facility] Comment on above: Performed By: #### M G, CMP ####[facility] Lpnadotoif964734 [address] [place], [place] [address]Dr. Airam Tripathi SODIUM RANDOM URINEon 2022 Sodium (U) [Moles/Vol] 37 mmol/L Normal 30- [facility] Comment on above: Performed By: #### N AU ####[facility] Gqzztucdqx0249[address] [place], [place] [address]Dr. Airam Tripathi UA RANDOM W/MICROSCOPICon BACTERIA TRACE Abnormal NONE SEEN [facility] Comment on above: Performed By: #### U AMIC ####[facility] Rrggunfsek091634 [address] [place], [place] [address]Dr. Airam Tripathi Bilirubin Ql (U) Negative Normal NEGATIVE [facility] Comment on above: Performed By: #### U AMIC ####[facility] Sdzbmmaumg497134 [address] [place], [place] [address]Dr. Airam Tripathi CAST SEEN Abnormal NONE SEEN [facility] Comment on above: Performed By: #### U AMIC ####[facility] Qqrpvcfsyk713734 [address] [place], [place] [address]Dr. Airam Tripathi Clarity (U) CLEAR Normal CLEAR [facility] Comment on above: Performed By: #### U AMIC ####[facility] Iakemfxvpu8044 [place] [address]Dr. Airam Tripathi Color (U) YELLOW Normal YELLOW [facility] Comment on above: Performed By: #### U AMIC ####[facility] Pgiindnyxm7151 [place] [address]Dr. Airam Tripathi Crystals LM Nom (Urine sed) NONE SEEN Normal NONE SEEN [facility] Comment on above: Performed By: #### U AMIC ####[facility] Atxywpuukb738334 [address] [place], [place] [address]Dr. Selenaneil Tripathi Epithelial cells LM Ql (Urine sed) RARE Normal NONE SEEN /RARE [facility] Comment on above: Performed By: #### U AMIC ####[facility] Nnbpyqkvjo004834 [address] [place], [place] [address]Dr. Airam Tripathi Glucose Ql (U) Negative Normal NEGATIVE [facility] Comment on above: Performed By: #### U AMIC ####[facility] Imdliktjqy514234 [address] [place], [place] [address]Dr. Airam Tripathi Hemoglobin Ql (U) Negative Normal NEGATIVE [facility] Comment on above: Performed By: #### U AMIC ####[facility] Rdtgjonxer4507[address] [place], [place] [address]Dr. Airam Tripathi HYALINE CAST RARE Normal [facility] Comment on above: Performed By: #### U AMIC ####[facility] Tihqsnpswb187134 [address] [place], [place] [address]Dr. Airam Tripathi Ketones Ql (U) TRACE Abnormal NEGATIVE [facility] Comment on above: Performed By: #### U AMIC ####[facility] Ubthigvjie068634 [address] [place], [place] [address]Dr. Airam Tripathi LEUKOCYTES Negative Normal NEGATIVE [facility] Comment on above: Performed By: #### U AMIC ####[facility] Vbgnijdplw8016[address] [place], [place] [address]Dr. Airam Tripathi MUCOUS NONE SEEN Normal NONE SEEN [facility] Comment on above: Performed By: #### U AMIC ####[facility] Znuoxjqckp4650[address] [place], [place] [address]Dr. Airam Tripathi Nitrite Ql (U) Negative Normal NEGATIVE [facility] Comment on above: Performed By: #### U AMIC ####[facility] Favvafwxlz108934 [address] [place], [place] [address]Dr. Airam Tripathi pH (U) 5.0 [pH] Normal 5-9 [facility] Comment on above: Performed By: #### U AMIC ####[facility] Gfvocrquhh9886 [place] [address]Dr. Airam Tripathi RBC 0-2 Normal 0-2 [facility] Comment on above: Performed By: #### U AMIC ####[facility] Azyjppbrks4530 [place] [address]Dr. Airam Tripathi SPEC GRAVITY 1.015 Normal 1.005-<=1.02 5 [facility] Comment on above: Performed By: #### U AMIC ####[facility] Uwxbhcckod0602 [place] [address]Dr. Airam Tripathi UA PROTEIN Negative Normal NEGATIVE/ TRACE [facility] Comment on above: Performed By: #### U AMIC ####[facility] Tmtltxmbnz5779 [place] [address]Dr. Airam Tripathi Urobilinogen Qn (U) 0.2 {Ligia'U}/dL Normal 0.2 - 1. 0 [facility] Comment on above: Performed By: #### U AMIC ####[facility] Xdrqqspbxz269[address] [place], [place] [address]Dr. Airam Tripathi WBC NONE SEEN Normal NONE SEEN [facility] Comment on above: Performed By: #### U AMIC ####[facility] Lkanyabuzw0573 [place] [address]Dr. Airam Tripathi CBC AUTO DIFFon 10-04-2022 BASO # 0.0 103/ul Normal 0.0-0.1 [facility] Comment on above: Performed By: #### C BC ####[facility] Avkecphcs[address] [place], [place] [address]Dr. Airam Tripathi Basophils/100 WBC (Bld) 0.3 % Normal 0.2-2.0 [facility] Comment on above: Performed By: #### C BC ####[facility] S[address]ob[address] [place] [address]Dr. Airam Tripathi EO # 0.2 103/ul Normal 0.0-0.7 [facility] Comment on above: Performed By: #### C BC ####[facility] Unvepnnbrn[address] [place] [address]Dr. Airam Tripathi Eosinophils/100 WBC (Bld) 3.2 % Normal 0.9-7.0 [facility] Comment on above: Performed By: #### C BC ####[facility] Ntebsbqxhc[address] [place] [address]Dr. Airam Tripathi Erythrocyte distribution width (RBC) [Ratio] 15.1 % Critically high 11.0-15.0 [facility] Comment on above: Performed By: #### C BC ####[facility] Xqmiqvczot[address] [place], [place] [address]Dr. Airam Tripathi Hematocrit (Bld) [Volume fraction] 27.6 % Critically low 36.0-48.0 [facility] Comment on above: Performed By: #### C BC ####[facility] Ysidoudeeh022[address] [place], [place] [address]Dr. Airam Tripathi Hemoglobin (Bld) [Mass/Vol] 8.7 g/dL Critically low 12.0-16.0 [facility] Comment on above: Performed By: #### C BC ####[facility] Ldsaipwtlu9[address] [place], [place] [address]Dr. Airam Tripathi IG # 0.03 10e3/ul Normal 0.00-0.03 [facility] Comment on above: Performed By: #### C BC ####[facility] Idginnrgoy697[address] [place], [place] [address]Dr. Airam Tripathi IG % 0.4 % Normal 0.0-0.5 [facility] Comment on above: Performed By: #### C BC ####[facility] Rfdjaverhn048334 [address] [place], [place] [address]Dr. Airam Tripathi LYMPH # 1.2 103/ul Normal 1.2-3.8 [facility] Comment on above: Performed By: #### C BC ####[facility] Cmtafavnao655[address] [place], [place] [address]Dr. Airam Tripathi Lymphocytes/100 WBC (Bld) 16.4 % Critically low 20.5-60.0 [facility] Comment on above: Performed By: #### C BC ####[facility] Lizwplpvto[address] [place] [address]Dr. Airam Tripathi MANUAL DIFF REQ NO Normal [facility] Comment on above: Performed By: #### C BC ####[facility] [address]jvxjfsncn[address] [place] [phone]. Airam Tripathi MCH (RBC) [Entitic mass] 28.5 pg Normal 26.7-34.0 [facility] Comment on above: Performed By: #### C BC ####[facility] Ismfyxskvq6[address] [place] [address]Dr. Airam Tripathi MCHC (RBC) [Mass/Vol] 31.5 g/dL Normal 29.9-35.2 [facility] Comment on above: Performed By: #### C BC ####[facility] Aufylfmgjd2229[address] [place], [place] [address]Dr. Airam Tripathi MCV (RBC) [Entitic vol] 90.5 fL Normal 81.0-99.0 [facility] Comment on above: Performed By: #### C BC ####[facility] Uflaqpunoj7020[address] [place], [place] [address]Dr. Airam Tripathi MONO # 0.5 103/ul Normal 0.3-0.8 [facility] Comment on above: Performed By: #### C BC ####[facility] Sylsujymqr9520[address] [place], [place] [address]Dr. Airam Tripathi Monocytes/100 WBC (Bld) 7.3 % Normal 1.7-12.0 [facility] Comment on above: Performed By: #### C BC ####[facility] Hwreabszrs9[address] [place], [place] [address]DrKianna Tripathi NEUT # 5.4 103/ul Normal 1.4-6.5 [facility] Comment on above: Performed By: #### C BC ####[facility] Asdriartnl298434 [address] [place], [place] [address]Dr. Airam Tripathi Neutrophils/100 WBC (Bld) 72.4 % Normal 43.0-75.0 [facility] Comment on above: Performed By: #### C BC ####[facility] Uxsiviovxr4794 [place] [address]Dr. Airam Tripathi Platelet mean volume (Bld) [Entitic vol] 9.1 fL Critically low 9.5-13.5 [facility] Comment on above: Performed By: #### C BC ####[facility] Pphymcqvtl35[address] [place] [address]Dr. Airam Tripathi PLT 304 103/ul Normal 150-450 [facility] Comment on above: Performed By: #### C BC ####[facility] Deqwoiruxe26[address] [place] [address]Dr. Airam Tripathi RBC 3.05 106/ul Critically low 4.20-5.40 [facility] Comment on above: Performed By: #### C BC ####[facility] Rgymjjvmzt6542 [place] [address]Dr. Airam Tripathi WBC 7.4 103/ul Normal 4.0-11.0 [facility] Comment on above: Performed By: #### C BC ####[facility] Vymhbpigjy36[address] [place] [address]DrKianna Tripathi PROF 14(COMP METB)on 023 Albumin [Mass/Vol] 3.3 g/dL Critically low 3.4-5.0 [facility] Comment on above: Performed By: #### C MP ####[facility] Eyrrtgpudk5[address] [place] [address]DrKianna Tripathi Albumin/Globulin [Mass ratio] 0.9 {ratio} Normal [facility] Comment on above: Performed By: #### C MP ####[facility] Icascauoiy8616 [place] [address]DrKianna Tripathi ALP [Catalytic activity/Vol] 127 U/L Critically high 46-116 [facility] Comment on above: Performed By: #### C MP ####[facility] Cddndvgifs9031 [place] [address]DrKianna Tripathi ALT [Catalytic activity/Vol] 29 U/L Normal 14-59 [facility] Comment on above: Performed By: #### C MP ####[facility] Xinpfplruq3335 [place] [phone]. Airam Tripathi Anion gap [Moles/Vol] 14.6 mmol/L Normal Th [facility] Comment on above: Performed By: #### C MP ####[facility] Zverfhnddv2483 [place] [address]Dr. Airam Tripathi AST [Catalytic activity/Vol] 28 U/L Normal 15-37 [facility] Comment on above: Performed By: #### C MP ####[facility] Ojzwqzcvvw9749 [place] [address]Dr. Airam Tripathi Bilirubin [Mass/Vol] 0.3 mg/dL Normal 0.2-1.0 [facility] Comment on above: Performed By: #### C MP ####[facility] Jalioocsjw8548[address] [place], [place] [address]Dr. Airam Deuce Calcium [Mass/Vol] 8.9 mg/dL Normal 8.5-10.1 [facility] Comment on above: Performed By: #### C MP ####[facility] Rxbbprvtbu862234 [address] [place], [place] [address]Dr. Airam Deuce Chloride [Moles/Vol] 99 mmol/L Normal 98-107 [facility] Comment on above: Performed By: #### C MP ####[facility] Ppxepdmgrj189134 [address] [place], [place] [address]Dr. Airam Tripathi CO2 [Moles/Vol] 25.1 mmol/L Normal 21.0-32.0 [facility] Comment on above: Performed By: #### C MP ####[facility] Brpkndiavj504334 [address] [place], [place] [address]Dr. Airam Deuce Creatinine [Mass/Vol] 1.42 mg/dL Critically high 0.55-1.02 [facility] Comment on above: Performed By: #### C MP ####[facility] Lbyooqlvbw645834 [address] [place], [place] [address]Dr. Airam Deuce EGFR-AF [place]IZ[place] 46 mL/min/1.73m2 Critically low >=60 [facility] Comment on above: Performed By: #### C MP ####[facility] Civnjgmapi24[address] [place] [phone]. Airam Tripathi EGFR-NON AF CITIZEN [place] 38 mL/min/1.73m2 Critically low >=60 [facility] Comment on above: Performed By: #### C MP ####[facility] Bparhywxin3639 [place] [phone]. Airam Tripathi Globulin (S) [Mass/Vol] 3.6 g/dL Normal [facility] Comment on above: Performed By: #### C MP ####[facility] Atuktbrhwt[address] [place] [address]Dr. Airam Tripathi Glucose [Mass/Vol] 79 mg/dL Normal 74-106 [facility] Comment on above: Performed By: #### C MP ####[facility] Imgxhfrdyu9[address] [place] [address]Dr. Airam Tripathi Potassium [Moles/Vol] 5.7 mmol/L Critically high 3.5-5.1 [facility] Comment on above: Performed By: #### C MP ####[facility] Pqeawrldvo4[address] [place] [address]Dr. Airam Tripathi Protein [Mass/Vol] 6.9 g/dL Normal 6.4-8.2 [facility] Comment on above: Performed By: #### C MP ####[facility] Kmkugteekb011634 [address] [place], [place] [address]Dr. Airam Tripathi Sodium [Moles/Vol] 133 mmol/L Critically low 136-145 [facility] Comment on above: Performed By: #### C MP ####[facility] Gxbghbieci3465 [place] [address]Dr. Airam Tripathi Urea nitrogen [Mass/Vol] 35.0 mg/dL Critically high 7.0-18.0 [facility] Comment on above: Performed By: #### C MP ####[facility] Bxosuhkgbi772334 [address] [place], [place] [address]Dr. Airam Tripathi Urea nitrogen/Creatinine [Mass ratio] 24.6 mg/mg Normal [facility] Comment on above: Performed By: #### C MP ####[facility] Valtdfokjw[address] [place] [address]Dr. Airam Tripathi OSMOLALITYon 10-02-2022 Osmolality [Osmolality] 277 mosm/kg Normal 275-295 [facility] Comment on above: Performed By: #### O SMO ####[facility] Kcfvoiduzw36[address] [place] [address]Dr. Airam Deuce CBC AUTO DIFFon 09-29-2022 BASO # 0.0 103/ul Normal 0.0-0.1 [facility] Comment on above: Performed By: #### C BC ####[facility] Mrvmxgpnar730[address] [place], [place] [address]Dr. Airam Tripathi Basophils/100 WBC (Bld) 0.5 % Normal 0.2-2.0 [facility] Comment on above: Performed By: #### C BC ####[facility] Dkavdlqelg646534 [address] [place], [place] [address]Dr. Airam Tripathi EO # 0.2 103/ul Normal 0.0-0.7 [facility] Comment on above: Performed By: #### C BC ####[facility] Bmovqdpqab272834 [address] [place], [place] [address]Dr. Airam Tripathi Eosinophils/100 WBC (Bld) 3.2 % Normal 0.9-7.0 [facility] Comment on above: Performed By: #### C BC ####[facility] Oonvdyisis456234 [address] [place], [place] [address]Dr. Airam Tripathi Erythrocyte distribution width (RBC) [Ratio] 15.1 % Critically high 11.0-15.0 [facility] Comment on above: Performed By: #### C BC ####[facility] Fmmrsbkihg777834 [address] [place], [place] [address]Dr. Airam Tripathi Hematocrit (Bld) [Volume fraction] 26.2 % Critically low 36.0-48.0 [facility] Comment on above: Performed By: #### C BC ####[facility] Rtstxjkdmu825734 [address] [place], [place] [address]Dr. Airam Tripathi Hemoglobin (Bld) [Mass/Vol] 8.1 g/dL Critically low 12.0-16.0 [facility] Comment on above: Performed By: #### C BC ####[facility] Vfehilxisc7[address] [place] [address]DrKianna Tripathi IG # 0.02 10e3/ul Normal 0.00-0.03 [facility] Comment on above: Performed By: #### C BC ####[facility] Khggjhbnpg0396 [place] [address]DrKianna Tripathi IG % 0.4 % Normal 0.0-0.5 [facility] Comment on above: Performed By: #### C BC ####[facility] Qabxhhklem4766[address] [place], [place] [address]DrKianna Tripathi LYMPH # 1.3 103/ul Normal 1.2-3.8 [facility] Comment on above: Performed By: #### C BC ####[facility] Xekmvtgijn2855[address] [place], [place] [address]DrKianna Tripathi Lymphocytes/100 WBC (Bld) 22.6 % Normal 20.5-60.0 [facility] Comment on above: Performed By: #### C BC ####[facility] Gdrfzsqvrd10[address] [place], [place] [address]DrKianna Tripathi MANUAL DIFF REQ NO Normal [facility] Comment on above: Performed By: #### C BC ####[facility] Hlogmrqygg907[address] [place], [place] [address]Dr. Airam Tripathi MCH (RBC) [Entitic mass] 28.0 pg Normal 26.7-34.0 [facility] Comment on above: Performed By: #### C BC ####[facility] Oojulqverd798834 [address] [place], [place] [address]DrKianna Tripathi MCHC (RBC) [Mass/Vol] 30.9 g/dL Normal 29.9-35.2 [facility] Comment on above: Performed By: #### C BC ####[facility] Slpzifwyfz77[address] [place] [address]DrKianna Tripathi MCV (RBC) [Entitic vol] 90.7 fL Normal 81.0-99.0 [facility] Comment on above: Performed By: #### C BC ####[facility] Kdyugdqrev2827 [place] [address]Dr. Airam Tripathi MONO # 0.5 103/ul Normal 0.3-0.8 [facility] Comment on above: Performed By: #### C BC ####[facility] Kvoqphoxfj6052 [place] [phone]. Airam Tripathi Monocytes/100 WBC (Bld) 9.6 % Normal 1.7-12.0 [facility] Comment on above: Performed By: #### C BC ####[facility] Ixzbteztfi8655 [place] [address]Dr. Airam Tripathi NEUT # 3.6 103/ul Normal 1.4-6.5 [facility] Comment on above: Performed By: #### C BC ####[facility] Ztndfbniaz880[address] [place], [place] [address]Dr. Airam Tripathi Neutrophils/100 WBC (Bld) 63.7 % Normal 43.0-75.0 [facility] Comment on above: Performed By: #### C BC ####[facility] Gyvcvdatkr2320 [place] [address]Dr. Airam Tripathi Platelet mean volume (Bld) [Entitic vol] 9.4 fL Critically low 9.5-13.5 [facility] Comment on above: Performed By: #### C BC ####[facility] Pdojchvlct9125 [place] [address]Dr. Airam Tripathi PLT 258 103/ul Normal 150-450 [facility] Comment on above: Performed By: #### C BC ####[facility] Yrgglgwupy9086 [place] [phone]. Airam Tripathi RBC 2.89 106/ul Critically low 4.20-5.40 [facility] Comment on above: Performed By: #### C BC ####[facility] Llohymrwdv0535 [place] [address]Dr. Airam Tripathi WBC 5.6 103/ul Normal 4.0-11.0 [facility] Comment on above: Performed By: #### C BC ####[facility] Zimsrchujs4185 [place] [address]Dr. Airam Tripathi PROF 14(COMP METB)on 023 Albumin [Mass/Vol] 3.0 g/dL Critically low 3.4-5.0 [facility] Comment on above: Performed By: #### C MP ####[facility] Ctsoyrumsz9316 [place] [address]Dr. Airam Tripathi Albumin/Globulin [Mass ratio] 1.1 {ratio} Normal [facility] Comment on above: Performed By: #### C MP ####[facility] Uhboipdnsk034034 [address] [place], [place] [address]Dr. Airam Tripathi ALP [Catalytic activity/Vol] 102 U/L Normal 46-116 [facility] Comment on above: Performed By: #### C MP ####[facility] Mwjygwbqpj199334 [address] [place], [place] [address]Dr. Airam Tripathi ALT [Catalytic activity/Vol] 20 U/L Normal 14-59 [facility] Comment on above: Performed By: #### C MP ####[facility] Hzgbdpashz133934 [address] [place], [place] [address]Dr. Airam Tripathi Anion gap [Moles/Vol] 11.1 mmol/L Normal [facility] Comment on above: Performed By: #### C MP ####[facility] Giibbjlhxh210[address] [place], [place] [address]Dr. Airam Tripathi AST [Catalytic activity/Vol] 18 U/L Normal 15-37 [facility] Comment on above: Performed By: #### C MP ####[facility] Dlzmeexzhi2501[address] [place], [place] [address]Dr. Airam Tripathi Bilirubin [Mass/Vol] 0.2 mg/dL Normal 0.2-1.0 [facility] Comment on above: Performed By: #### C MP ####[facility] Revsgsokas3977[address] [place], [place] [address]Dr. Airam Tripathi Calcium [Mass/Vol] 8.0 mg/dL Critically low 8.5-10.1 [facility] Comment on above: Performed By: #### C MP ####[facility] Ntrmhnpkwm2261 [place] [address]Dr. Airam Tripathi Chloride [Moles/Vol] 100 mmol/L Normal 98-107 [facility] Comment on above: Performed By: #### C MP ####[facility] Idggwbbqxh2642 [place] [address]Dr. Airam Tripathi CO2 [Moles/Vol] 24.8 mmol/L Normal 21.0-32.0 [facility] Comment on above: Performed By: #### C MP ####[facility] Msihepjwzr9889 [place] [address]Dr. Airam Tripathi Creatinine [Mass/Vol] 1.11 mg/dL Critically high 0.55-1.02 [facility] Comment on above: Performed By: #### C MP ####[facility] Ybketgzliy829334 [address] [place], [place] [address]Dr. Airam Tripathi EGFR-AF [place]IZ[place] >60 Normal >=60 [facility] Comment on above: Performed By: #### C MP ####[facility] Rwdthtqfyb559[address] [place], [place] [address]Dr. Airam Tripathi EGFR-NON AF [place]IZ[place] 50 mL/min/1.73m2 Critically low >=60 [facility] Comment on above: Performed By: #### C MP ####[facility] Cnzpdemdux6788 [place] [address]Dr. Airam Tripathi Globulin (S) [Mass/Vol] 2.8 g/dL Normal [facility] Comment on above: Performed By: #### C MP ####[facility] Hxfpakshct4971 [place] [address]Dr. Airam Tripathi Glucose [Mass/Vol] 77 mg/dL Normal 74-106 [facility] Comment on above: Performed By: #### C MP ####[facility] Psinansand4340 [place] [address]Dr. Airam Tripathi Potassium [Moles/Vol] 4.9 mmol/L Normal 3.5-5.1 [facility] Comment on above: Performed By: #### C MP ####[facility] Bvlyylxhpz2945 [place] [address]Dr. Airam Tripathi Protein [Mass/Vol] 5.8 g/dL Critically low 6.4-8.2 [facility] Comment on above: Performed By: #### C MP ####[facility] Vsdtxejedm3813[address] [place], [place] [address]Dr. Selenaneil Tripathi Sodium [Moles/Vol] 131 mmol/L Critically low 136-145 [facility] Comment on above: Performed By: #### C MP ####[facility] Pjmfwekmei704134 [address] [place], [place] [address]Dr. Airam Tripathi Urea nitrogen [Mass/Vol] 33.0 mg/dL Critically high 7.0-18.0 [facility] Comment on above: Performed By: #### C MP ####[facility] Cfbutmedfm339934 [address] [place], [place] [address]Dr. Selenaneil Deuce Urea nitrogen/Creatinine [Mass ratio] 29.7 mg/mg Normal [facility] Comment on above: Performed By: #### C MP ####[facility] Xrqoatnian180934 [address] [place], [place] [address]Dr. Airam Deuce ECHOCARDIO M/2D COMPLETEon 0 09-21-2022 ECHOCARDIO M/2D COMPLETE Normal [facility] OSMOLALITYon 09-21-2022 Osmolality [Osmolality] 282 mosm/kg Normal 275-295 [facility] Comment on above: Performed By: #### O SMO ####[facility] Uvyfxuxxie2456[address] [place], [place] [address]Dr. Airam Deuce PHOSPHOLIPIDSon 09-21-2022 Phospholipids, Serum 249 mg/dL Normal 151-288 [facility] Comment on above: Performed By: #### P HOSLIP ####[facility] Ululzilulk440[address] [place], [place] [address]Dr. Airam Deuce CBC AUTO DIFFon 09-20-2022 BASO # 0.0 103/ul Normal 0.0-0.1 [facility] Comment on above: Performed By: #### C BC ####[facility] Exbtldfyze738234 [address] [place], [place] [address]Dr. Airam Tripathi Basophils/100 WBC (Bld) 0.5 % Normal 0.2-2.0 [facility] Comment on above: Performed By: #### C BC ####[facility] Csirgpnutw703134 [address] [place], [place] [address]Dr. Airam Tripathi EO # 0.2 103/ul Normal 0.0-0.7 [facility] Comment on above: Performed By: #### C BC ####[facility] Ckqtmovrik155234 [address] [place], [place] [address]Dr. Airam Tripathi Eosinophils/100 WBC (Bld) 2.9 % Normal 0.9-7.0 [facility] Comment on above: Performed By: #### C BC ####[facility] Vsjfbjiwvd933034 [address] [place], [place] [address]Dr. Airam Tripathi Erythrocyte distribution width (RBC) [Ratio] 15.4 % Critically high 11.0-15.0 [facility] Comment on above: Performed By: #### C BC ####[facility] Kpfwtvisbi801834 [address] [place], [place] [address]Dr. Airam Tripathi Hematocrit (Bld) [Volume fraction] 26.3 % Critically low 36.0-48.0 [facility] Comment on above: Performed By: #### C BC ####[facility] Zozffnmffx0026[address] [place], [place] [address]Dr. Airam Tripathi Hemoglobin (Bld) [Mass/Vol] 8.2 g/dL Critically low 12.0-16.0 [facility] Comment on above: Performed By: #### C BC ####[facility] Uqhkmfvple1145[address] [place], [place] [address]Dr. Airam Tripathi IG # 0.03 10e3/ul Normal 0.00-0.03 [facility] Comment on above: Performed By: #### C BC ####[facility] Yimuiepecb422[address] [place], [place] [address]Dr. Airam Tripathi IG % 0.4 % Normal 0.0-0.5 [facility] Comment on above: Performed By: #### C BC ####[facility] Afoymdbjcf3541 [place] [phone]. Airam Deuce LYMPH # 1.9 103/ul Normal 1.2-3.8 [facility] Comment on above: Performed By: #### C BC ####[facility] Lgjgvsdmcc4796 [place] [phone]. Selenaneil Tripathi Lymphocytes/100 WBC (Bld) 23.0 % Normal 20.5-60.0 [facility] Comment on above: Performed By: #### C BC ####[facility] Kdzudsmfxd7373 [place] [address]Dr. Selenaneil Tripathi MANUAL DIFF REQ NO Normal [facility] Comment on above: Performed By: #### C BC ####[facility] Hbtqljxjki8194 [place] [address]Dr. Airam Deuce MCH (RBC) [Entitic mass] 28.5 pg Normal 26.7-34.0 [facility] Comment on above: Performed By: #### C BC ####[facility] Wwtmdndfwz64[address] [place], [place] [address]Dr. Airam Deuce MCHC (RBC) [Mass/Vol] 31.2 g/dL Normal 29.9-35.2 [facility] Comment on above: Performed By: #### C BC ####[facility] Qoyrgpmclk6937 [place] [address]Dr. Selenaneil Tripathi MCV (RBC) [Entitic vol] 91.3 fL Normal 81.0-99.0 [facility] Comment on above: Performed By: #### C BC ####[facility] Jdfhplkruy7547 [place] [address]Dr. Airam Tripathi MONO # 0.7 103/ul Normal 0.3-0.8 [facility] Comment on above: Performed By: #### C BC ####[facility] Aeamsnwfki5[address] [place], [place] [address]Dr. Selenaneil Tripathi Monocytes/100 WBC (Bld) 7.7 % Normal 1.7-12.0 [facility] Comment on above: Performed By: #### C BC ####[facility] Sofneemlyg4075 [place] [address]Dr. Airam Tripathi NEUT # 5.5 103/ul Normal 1.4-6.5 [facility] Comment on above: Performed By: #### C BC ####[facility] Ucgkcppden[address] [place] [address]Dr. Airam Tripathi Neutrophils/100 WBC (Bld) 65.5 % Normal 43.0-75.0 [facility] Comment on above: Performed By: #### C BC ####[facility] [address] [place] [address]Dr. Airam Tripathi Platelet mean volume (Bld) [Entitic vol] 9.1 fL Critically low 9.5-13.5 [facility] Comment on above: Performed By: #### C BC ####[facility] Hmoczspsji[address] [place] [address]Dr. Airam Deuce PLT 258 103/ul Normal 150-450 [facility] Comment on above: Performed By: #### C BC ####[facility] Qaskxlvhgo37[address] [place], [place] [address]Dr. Airam Tripathi RBC 2.88 106/ul Critically low 4.20-5.40 [facility] Comment on above: Performed By: #### C BC ####[facility] Wsjzpthyus6[address] [place], [place] [address]Dr. Airam Tripathi WBC 8.4 103/ul Normal 4.0-11.0 [facility] Comment on above: Performed By: #### C BC ####[facility] Phijejevoe4[address] [place], [place] [address]DrKianna Selenaneil Tripathi PROF CHEM 8 (BAS METB)on Anion gap [Moles/Vol] 10.3 mmol/L Normal [facility] Comment on above: Performed By: #### B MP ####[facility] Qnpnmphmcz3240[address] [place], [place] [address]DrKianna Selenaneil Tripathi Calcium [Mass/Vol] 7.9 mg/dL Critically low 8.5-10.1 [facility] Comment on above: Performed By: #### B MP ####[facility] [address]kw[address]ft[address] [place] [phone]. Airam Tripathi Chloride [Moles/Vol] 98 mmol/L Normal 98-107 [facility] Comment on above: Performed By: #### B MP ####[facility] Ddnogujzuc[address] [place] [address]Dr. Airam Tripathi CO2 [Moles/Vol] 27.5 mmol/L Normal 21.0-32.0 [facility] Comment on above: Performed By: #### B MP ####[facility] Avdxmcqfrg466434 [address] [place], [place] [address]Dr. Airam Tripathi Creatinine [Mass/Vol] 1.44 mg/dL Critically high 0.55-1.02 [facility] Comment on above: Performed By: #### B MP ####[facility] Nytrovrcyc2198[address] [place], [place] [address]Dr. Airam Deuce EGFR-AF CITIZEN [place] 45 mL/min/1.73m2 Critically low >=60 [facility] Comment on above: Performed By: #### B MP ####[facility] Bmjhujgecs5[address] [place], [place] [address]Dr. Airam Deuce EGFR-NON AF CITIZEN OF [place] 37 mL/min/1.73m2 Critically low >=60 [facility] Comment on above: Performed By: #### B MP ####[facility] Htwnqlqiag257[address] [place], [place] [address]Dr. Airam Deuce Glucose [Mass/Vol] 91 mg/dL Normal 74-106 [facility] Comment on above: Performed By: #### B MP ####[facility] Ekwqfxjtrb513434 [address] [place], [place] [address]Dr. Airam Tripathi Potassium [Moles/Vol] 4.8 mmol/L Normal 3.5-5.1 [facility] Comment on above: Performed By: #### B MP ####[facility] Fhwddmwopb903234 [address] [place], [place] [address]Dr. Airam Tripathi Sodium [Moles/Vol] 131 mmol/L Critically low 136-145 [facility] Comment on above: Performed By: #### B MP ####[facility] Syvfxuekra39[address] [place] [phone]. Airam Tripathi Urea nitrogen [Mass/Vol] 40.0 mg/dL Critically high 7.0-18.0 [facility] Comment on above: Performed By: #### B MP ####[facility] Ngsocizflp7604 [place] [phone]. Selenaneil Deuce Urea nitrogen/Creatinine [Mass ratio] 27.8 mg/mg Normal [facility] Comment on above: Performed By: #### B MP ####[facility] Zglkmpqyzy32[address] [place] [address]Dr. Airam Tripathi Anion gap [Moles/Vol] 10.6 mmol/L Normal [facility] Comment on above: Performed By: #### B MP ####[facility] Ubekolutfg167[address] [place], [place] [address]Dr. Airam Tripathi Calcium [Mass/Vol] 7.9 mg/dL Critically low 8.5-10.1 [facility] Comment on above: Performed By: #### B MP ####[facility] Cmdydhmwej564[address] [place], [place] [address]Dr. Airam Tripathi Chloride [Moles/Vol] 101 mmol/L Normal 98-107 [facility] Comment on above: Performed By: #### B MP ####[facility] Tmrfvnbyla999934 [address] [place], [place] [address]Dr. Airam Tripathi CO2 [Moles/Vol] 27.4 mmol/L Normal 21.0-32.0 [facility] Comment on above: Performed By: #### B MP ####[facility] Qamxvjvxgr339634 [address] [place], [place] [address]Dr. Airam Tripathi Creatinine [Mass/Vol] 1.35 mg/dL Critically high 0.55-1.02 [facility] Comment on above: Performed By: #### B MP ####[facility] Nafhqzpflu315534 [address] [place], [place] [address]Dr. Airam Tripathi EGFR-AF CITIZ[place] 48 mL/min/1.73m2 Critically low >=60 [facility] Comment on above: Performed By: #### B MP ####[facility] Vovxqbproe89[address] [place] [phone]. Airam Tripathi EGFR-NON AF CITIZ[place] 40 mL/min/1.73m2 Critically low >=60 [facility] Comment on above: Performed By: #### B MP ####[facility] Vdnjsbvtid2[address] [place] [address]Dr. Airam Tripathi Glucose [Mass/Vol] 114 mg/dL Critically high 74-106 [facility] Comment on above: Performed By: #### B MP ####[facility] Jkjsqlmklo4053 [place] [address]Dr. Airam Tripathi Potassium [Moles/Vol] 5.0 mmol/L Normal 3.5-5.1 [facility] Comment on above: Performed By: #### B MP ####[facility] Kjtcwcyrvm713634 [address] [place], [place] [address]Dr. Airam Tripathi Sodium [Moles/Vol] 134 mmol/L Critically low 136-145 [facility] Comment on above: Performed By: #### B MP ####[facility] Fswlobevsy105334 [address] [place], [place] [address]Dr. Airam Deuce Urea nitrogen [Mass/Vol] 40.0 mg/dL Critically high 7.0-18.0 [facility] Comment on above: Performed By: #### B MP ####[facility] Rpjkojllau218034 [address] [place], [place] [address]Dr. Airam Tripathi Urea nitrogen/Creatinine [Mass ratio] 29.6 mg/mg Normal [facility] Comment on above: Performed By: #### B MP ####[facility] Pmqxnrkkhx59[address] [place], [place] [address]Dr. Selenaneil Tripathi PTH INTACTon 09-20-2022 PTH, Intact 104 pg/mL Critically high 15-65 [facility] Comment on above: Performed By: #### P THINT ####[facility] Onnrtqmxhw187234 [address] [place], [place] [address]Dr. Selenaneil Tripathi BNPon 09-19-2022 Natriuretic peptide B (Bld) [Mass/Vol] 1272.0 pg/mL Critically high <=900.0 [facility] Comment on above: Performed By: #### H STROPN, TSH, K, BNP ####[facility] Txyvzlyatd69[address] [place] [address]Dr. Airam Tripathi CBC AUTO DIFFon 09-19-2022 BASO # 0.0 103/ul Normal 0.0-0.1 [facility] Comment on above: Performed By: #### C BC ####[facility] Rmdjykhpls5[address] [place] [address]Dr. Airam Tripathi Basophils/100 WBC (Bld) 0.5 % Normal 0.2-2.0 [facility] Comment on above: Performed By: #### C BC ####[facility] Gdvymuwyfy681434 [address] [place], [place] [address]Dr. Airam Tripathi EO # 0.2 103/ul Normal 0.0-0.7 [facility] Comment on above: Performed By: #### C BC ####[facility] Lvmrheiamo927734 [address] [place], [place] [address]Dr. Airam Tripathi Eosinophils/100 WBC (Bld) 2.6 % Normal 0.9-7.0 [facility] Comment on above: Performed By: #### C BC ####[facility] Kxnekbftgx538734 [address] [place], [place] [address]Dr. Airam Tripathi Erythrocyte distribution width (RBC) [Ratio] 15.5 % Critically high 11.0-15.0 [facility] Comment on above: Performed By: #### C BC ####[facility] Vrhqeonobf574534 [address] [place], [place] [address]Dr. Airam Tripathi Hematocrit (Bld) [Volume fraction] 31.1 % Critically low 36.0-48.0 [facility] Comment on above: Performed By: #### C BC ####[facility] Pnqiwhvvrz629634 [address] [place], [place] [address]Dr. Airam Tripathi Hemoglobin (Bld) [Mass/Vol] 9.6 g/dL Critically low 12.0-16.0 [facility] Comment on above: Performed By: #### C BC ####[facility] Gostfubnel800534 [address] [place], [place] [address]Dr. Airam Tripathi IG # 0.04 10e3/ul Critically high 0.00-0.03 [facility] Comment on above: Performed By: #### C BC ####[facility] H[address]zzhgrov[address] [place] [address]DrKianna Airam Deuce IG % 0.5 % Normal 0.0-0.5 [facility] Comment on above: Performed By: #### C BC ####[facility] Dpxjqvtugn320034 [address] [place], [place] [address]DrKianna Tripathi LYMPH # 1.0 103/ul Critically low 1.2-3.8 [facility] Comment on above: Performed By: #### C BC ####[facility] Xdlfnswgyp748534 [address] [place], [place] [address]DrKianna Tripathi Lymphocytes/100 WBC (Bld) 12.0 % Critically low 20.5-60.0 [facility] Comment on above: Performed By: #### C BC ####[facility] Gqehiiwrvq863434 [address] [place], [place] [address]DrKianna Selenaneil Tripathi MANUAL DIFF REQ NO Normal [facility] Comment on above: Performed By: #### C BC ####[facility] Grvdfuwrtt269134 [address] [place], [place] [address]DrKianna Airam Deuce MCH (RBC) [Entitic mass] 28.2 pg Normal 26.7-34.0 [facility] Comment on above: Performed By: #### C BC ####[facility] Brvjztkuaa973934 [address] [place], [place] [address]DrKianna Tripathi MCHC (RBC) [Mass/Vol] 30.9 g/dL Normal 29.9-35.2 [facility] Comment on above: Performed By: #### C BC ####[facility] Eykyhqxiye0068[address] [place], [place] [address]DrKianna Tripathi MCV (RBC) [Entitic vol] 91.5 fL Normal 81.0-99.0 [facility] Comment on above: Performed By: #### C BC ####[facility] Nxfzbszahs538634 [address] [place], [place] [address]DrKianna Tripathi MONO # 0.5 103/ul Normal 0.3-0.8 [facility] Comment on above: Performed By: #### C BC ####[facility] Bcsmtxnudk[address] [place] [address]Dr. Airam Tripathi Monocytes/100 WBC (Bld) 6.4 % Normal 1.7-12.0 [facility] Comment on above: Performed By: #### C BC ####[facility] Yfvutpsiat2971 [place] [address]Dr. Airam Tripathi NEUT # 6.4 103/ul Normal 1.4-6.5 [facility] Comment on above: Performed By: #### C BC ####[facility] Yarrwjtxpo86[address] [place] [address]Dr. Airam Tripathi Neutrophils/100 WBC (Bld) 78.0 % Critically high 43.0-75.0 [facility] Comment on above: Performed By: #### C BC ####[facility] Nocjjpkqoh040234 [address] [place], [place] [address]Dr. Airam Tripathi Platelet mean volume (Bld) [Entitic vol] 9.1 fL Critically low 9.5-13.5 [facility] Comment on above: Performed By: #### C BC ####[facility] Hbgfwsmfko080[address] [place], [place] [address]Dr. Airam Tripathi PLT 318 103/ul Normal 150-450 [facility] Comment on above: Performed By: #### C BC ####[facility] Gggiyokijx956234 [address] [place], [place] [address]Dr. Airam Tripathi RBC 3.40 106/ul Critically low 4.20-5.40 [facility] Comment on above: Performed By: #### C BC ####[facility] Berstomrhw250734 [address] [place], [place] [address]Dr. Airam Tripathi WBC 8.2 103/ul Normal 4.0-11.0 [facility] Comment on above: Performed By: #### C BC ####[facility] Pvsqcmhogk305534 [address] [place], [place] [address]DrKianna Aiarm Tripathi Covid-19 PCR (CVDTBH)on 08-25 SARS-CoV-2 (COVID-19) RNA MIKE+probe Ql (Unsp spec) Not detected Normal NOT DETECTED [facility] Comment on above: Result Comment: [...] for this test is supported by the Labor Relations Analyst of Health and Human Service's declaration that [...] be used). Performed By: #### C VDTBH ####[facility] Fjxvocdvrg3226[address] [place], [place] [address]Dr. Airam Tripathi LACTATE/LACTIC ACIDon 2022 Lactate [Moles/Vol] 0.4 mmol/L Normal 0.4-2.0 [facility] Comment on above: Performed By: #### L ACT ####[facility] Jvkedhmfhj5987[address] [place], [place] [address]DrKianna Tripathi POTASSIUMon 09-19-2022 Potassium [Moles/Vol] 6.3 mmol/L Critically high 3.5-5.1 [facility] Comment on above: Performed By: #### H STROPN, TSH, K, BNP ####[facility] Dyctmuohbi7154 [place] [address]DrKianna Tripathi PROF 14(COMP METB)on 023 Albumin [Mass/Vol] 3.5 g/dL Normal 3.4-5.0 [facility] Comment on above: Performed By: #### C MP ####[facility] Lasryidhxp438734 [address] [place], [place] [address]Dr. Airam Deuce Albumin/Globulin [Mass ratio] 1.1 {ratio} Normal [facility] Comment on above: Performed By: #### C MP ####[facility] Xwzcxudssp5345 [place] [address]Dr. Airam Deuce ALP [Catalytic activity/Vol] 113 U/L Normal 46-116 [facility] Comment on above: Performed By: #### C MP ####[facility] Ghxxeknqeb3836 [place] [address]Dr. Airam Deuce ALT [Catalytic activity/Vol] 26 U/L Normal 14-59 [facility] Comment on above: Performed By: #### C MP ####[facility] Hyqlcqrohj2433[address] [place], [place] [address]Dr. Airam Tripathi Anion gap [Moles/Vol] 11.5 mmol/L Normal [facility] Comment on above: Performed By: #### C MP ####[facility] Dbuylxyfug871034 [address] [place], [place] [address]Dr. Airam Deuce AST [Catalytic activity/Vol] 24 U/L Normal 15-37 [facility] Comment on above: Performed By: #### C MP ####[facility] Ltcpvskvfn083634 [address] [place], [place] [address]Dr. Airam Tripathi Bilirubin [Mass/Vol] 0.3 mg/dL Normal 0.2-1.0 [facility] Comment on above: Performed By: #### C MP ####[facility] Cyvdfijecc195634 [address] [place], [place] [address]Dr. Airam Tripathi Calcium [Mass/Vol] 8.9 mg/dL Normal 8.5-10.1 [facility] Comment on above: Performed By: #### C MP ####[facility] Shuegpsalc344934 [address] [place], [place] [address]Dr. Airam Tripathi Chloride [Moles/Vol] 103 mmol/L Normal 98-107 [facility] Comment on above: Performed By: #### C MP ####[facility] Hvkyyjfapx314934 [address] [place], [place] [address]Dr. Airam Tripathi CO2 [Moles/Vol] 27.8 mmol/L Normal 21.0-32.0 [facility] Comment on above: Performed By: #### C MP ####[facility] Mepgerlssl7[address] [place] [address]Dr. Airam Deuce Creatinine [Mass/Vol] 1.28 mg/dL Critically high 0.55-1.02 [facility] Comment on above: Performed By: #### C MP ####[facility] Kytkcbwfmn79[address] [place] [address]Dr. Airam Tripathi EGFR-AF [place] 52 mL/min/1.73m2 Critically low >=60 [facility] Comment on above: Performed By: #### C MP ####[facility] Jwnycqdebu99033[address] [place], [place] [address]Dr. Airam Tripathi EGFR-NON AF CITIZEN [place] 43 mL/min/1.73m2 Critically low >=60 [facility] Comment on above: Performed By: #### C MP ####[facility] Qhnbarkfgf083034 [address] [place], [place] [address]Dr. Airam Tripathi Globulin (S) [Mass/Vol] 3.2 g/dL Normal [facility] Comment on above: Performed By: #### C MP ####[facility] Mksakmrfos2346[address] [place], [place] [address]Dr. Airam Tripathi Glucose [Mass/Vol] 95 mg/dL Normal 74-106 [facility] Comment on above: Performed By: #### C MP ####[facility] Clylqegswt291634 [address] [place], [place] [address]Dr. Airam Tripathi Potassium [Moles/Vol] 6.3 mmol/L Critically high 3.5-5.1 [facility] Comment on above: Performed By: #### C MP ####[facility] Svupjogfuz4365[address] [place], [place] [address]Dr. Airam Tripathi Protein [Mass/Vol] 6.7 g/dL Normal 6.4-8.2 [facility] Comment on above: Performed By: #### C MP ####[facility] Tcoumnxgek807934 [address] [place], [place] [address]Dr. Airam Tripathi Sodium [Moles/Vol] 135 mmol/L Critically low 136-145 [facility] Comment on above: Performed By: #### C MP ####[facility] Llrmcdfalf65[address] [place] [address]Dr. Airam Tripathi Urea nitrogen [Mass/Vol] 42.0 mg/dL Critically high 7.0-18.0 [facility] Comment on above: Performed By: #### C MP ####[facility] Yvwvxkfvmq2459 [place] [address]DrKianna Tripathi Urea nitrogen/Creatinine [Mass ratio] 32.8 mg/mg Normal [facility] Comment on above: Performed By: #### C MP ####[facility] Nbxwomjbvx9479[address] [place], [place] [address]Dr. Airam Tripathi TROPONIN, HIGH SENSITIVITYon 09-19-2022 HSTROP 7.1 pg/mL Normal 4.0-51.3 [facility] Comment on above: Result Comment: CUT- OFF POINTS HAVE BEEN ESTABLISHED BASED ON THE FOURTH UNIVERSAL DEFINITIONS OF MYOCARDIALINFARCTION. THE UPPER REFERENCE LIMIT (URL) OF TROPONIN, DEFINED THE 99TH PERCENTILE OFcTnI DISTRIBUTION IN A REFERENCE POPULATION, HAS BEEN CONFIRMED THE DECISION THRESHOLDFOR AK DIAGNOSIS. Performed By: #### H STROPN, TSH, K, BNP ####[facility] Jnpmbwpkeb7048[address] [place], [place] [address]Dr. Airam Tripathi TSHon 09-19-2022 TSH 0.028 uIU/mL Critically low 0.358-3.740 [facility] Comment on above: Performed By: #### H STROPN, TSH, K, BNP ####[facility] Wjlbnuspan218734 [address] [place], [place] [address]Dr. Airam Tripathi UA RANDOMon 09-19-2022 Bilirubin Ql (U) Negative Normal NEGATIVE [facility] Comment on above: Performed By: #### U A ####[facility] Pznufjrgnr8485[address] [place], [place] [address]Dr. Airam Tripathi Clarity (U) CLEAR Normal CLEAR [facility] Comment on above: Performed By: #### U A ####[facility] Ufgkspphhr7670[address] [place], [place] [address]DrKianna Tripathi Color (U) LT. YELLOW Normal YELLOW [facility] Comment on above: Performed By: #### U A ####[facility] Yyjcccfune197634 [address] [place], [place] [address]Dr. Airam Tripathi Glucose Ql (U) Negative Normal NEGATIVE [facility] Comment on above: Performed By: #### U A ####[facility] Ryvixkrbjt253034 [address] [place], [place] [address]Dr. Airam Tripathi Hemoglobin Ql (U) Negative Normal NEGATIVE [facility] Comment on above: Performed By: #### U A ####[facility] Rndndiybbd644734 [address] [place], [place] [address]Dr. Airam Tripathi Ketones Ql (U) Negative Normal NEGATIVE [facility] Comment on above: Performed By: #### U A ####[facility] Drpqbucynq844734 [address] [place], [place] [address]Dr. Airam Tripathi LEUKOCYTES TRACE Abnormal NEGATIVE [facility] Comment on above: Performed By: #### U A ####[facility] Ibrlxaysxe705934 [address] [place], [place] [address]Dr. Airam Tripathi Nitrite Ql (U) Negative Normal NEGATIVE [facility] Comment on above: Performed By: #### U A ####[facility] Bgdgxzwwvq405934 [address] [place], [place] [address]Dr. Airam Tripathi pH (U) 5.5 [pH] Normal 5-9 [facility] Comment on above: Performed By: #### U A ####[facility] Ebuxwvwzjn709534 [address] [place], [place] [address]Dr. Selenaneil Deuce SPEC GRAVITY 1.010 Normal 1.005-<=1.02 5 [facility] Comment on above: Performed By: #### U A ####[facility] Tbaaalcxmn978[address] [place], [place] [address]Dr. Airam Tripathi UA PROTEIN Negative Normal NEGATIVE/ TRACE [facility] Comment on above: Performed By: #### U A ####[facility] Qwrmtgwsry015934 [address] [place], [place] [address]Dr. Airam Tripathi Urobilinogen Qn (U) 0.2 {Ligia'U}/dL Normal 0.2 - 1. 0 [facility] Comment on above: Performed By: #### U A ####[facility] Nmeufjxtsw095[address] [place], [place] [address]Dr. Airam Tripathi URIC ACID SERUMon 09-19-2022 Urate [Mass/Vol] 6.9 mg/dL Critically high 2.6-6.0 [facility] Comment on above: Performed By: #### U TRESSA ####[facility] Gklipexvxa316[address] [place], [place] [address]Dr. Airam Tripathi URINE T PROTEIN CREAT RATIOo n 09-19-2022 UR TOTAL PROTEIN <6.0 Normal <=12.0 [facility] Comment on above: Performed By: #### U RTPCR ####[facility] Wzdjkpyttl745934 [address] [place], [place] [address]Dr. Airam Tripathi URINE CREAT 15.12 mg/dL Critically low 20.00-300.00 [facility] Comment on above: Performed By: #### U RTPCR ####[facility] Yyutpqtsoj5279[address] [place], [place] [address]Dr. Airam Tripathi VITAMIN D 25 OHon 09-19-2022 VIT D 25-OH 75.9 ng/mL Normal [facility] Comment on above: Performed By: #### V ITAD ####[facility] Mehjmrhtvn3244[address] [place], [place] [address]Dr. Airam Tripathi VIT D RANGES SEE BELOW Normal [facility] Comment on above: Result Comment: <20 ng/mL Vit D deficient 20 - <30 ng/mL Vit D insufficient 30 - 100 ng/mL Vit D sufficient >100 ng/mL Potential Toxicity Performed By: #### V ITAD ####[facility] Svlmsohyeh9169[address] [place], [place] [address]Dr. Airam Tripathi OSMOLALITYon 09-14-2022 Osmolality [Osmolality] 272 mosm/kg Critically low 275-295 [facility] Comment on above: Performed By: #### O SMO ####[facility] Kizwkmdfcw9258[address] [place], [place] [address]Dr. Airam Tripathi CBC AUTO DIFFon 09-12-2022 BASO # 0.0 103/ul Normal 0.0-0.1 [facility] Comment on above: Performed By: #### C BC ####[facility] [address]ow[address] [place] [address]Dr. Selenaneil Deuce Basophils/100 WBC (Bld) 0.5 % Normal 0.2-2.0 [facility] Comment on above: Performed By: #### C BC ####[facility] Nsvgnhnasi8[address] [place], [place] [address]Dr. Selenaneil Deuce EO # 0.2 103/ul Normal 0.0-0.7 [facility] Comment on above: Performed By: #### C BC ####[facility] Renmbjikwu328[address] [place], [place] [address]Dr. Airam Tripathi Eosinophils/100 WBC (Bld) 2.4 % Normal 0.9-7.0 [facility] Comment on above: Performed By: #### C BC ####[facility] Tznllrovqs8201[address] [place], [place] [address]Dr. Airam Tripathi Erythrocyte distribution width (RBC) [Ratio] 14.8 % Normal 11.0-15.0 The [facility] Comment on above: Performed By: #### C BC ####[facility] Ndieulnqdi87[address] [place], [place] [address]Dr. Airam Tripathi Hematocrit (Bld) [Volume fraction] 32.6 % Critically low 36.0-48.0 [facility] Comment on above: Performed By: #### C BC ####[facility] Oohxbhaiwu6[address] [place], [place] [address]Dr. Airam Tripathi Hemoglobin (Bld) [Mass/Vol] 10.1 g/dL Critically low 12.0-16.0 [facility] Comment on above: Performed By: #### C BC ####[facility] Spkwhmjwyv762934 [address] [place], [place] [address]Dr. Airam Tripathi IG # 0.05 10e3/ul Critically high 0.00-0.03 [facility] Comment on above: Performed By: #### C BC ####[facility] Myhvvcmpsy909234 [address] [place], [place] [address]Dr. Airam Tripathi IG % 0.7 % Critically high 0.0-0.5 [facility] Comment on above: Performed By: #### C BC ####[facility] [address]vpotny[address] [place] [address]DrKianna Tripathi LYMPH # 1.9 103/ul Normal 1.2-3.8 [facility] Comment on above: Performed By: #### C BC ####[facility] Xtrlrchtzx3665 [place] [address]DrKianna Tripathi Lymphocytes/100 WBC (Bld) 24.7 % Normal 20.5-60.0 [facility] Comment on above: Performed By: #### C BC ####[facility] Jjjjyfduaf[address] [place], [place] [address]DrKianna Tripathi MANUAL DIFF REQ NO Normal [facility] Comment on above: Performed By: #### C BC ####[facility] Jjtgnmhsam713034 [address] [place], [place] [address]DrKianna Selenaneil Tripathi MCH (RBC) [Entitic mass] 28.0 pg Normal 26.7-34.0 [facility] Comment on above: Performed By: #### C BC ####[facility] Qoofosseua800[address] [place], [place] [address]DrKianna Airam Deuce MCHC (RBC) [Mass/Vol] 31.0 g/dL Normal 29.9-35.2 [facility] Comment on above: Performed By: #### C BC ####[facility] Awndyohitz4148[address] [place], [place] [address]DrKianna Tripathi MCV (RBC) [Entitic vol] 90.3 fL Normal 81.0-99.0 [facility] Comment on above: Performed By: #### C BC ####[facility] Lbbmzvlqzq4745[address] [place], [place] [address]DrKianna Tripathi MONO # 0.5 103/ul Normal 0.3-0.8 [facility] Comment on above: Performed By: #### C BC ####[facility] Fcajnzxwon683834 [address] [place], [place] [address]DrKianna Tripathi Monocytes/100 WBC (Bld) 6.0 % Normal 1.7-12.0 [facility] Comment on above: Performed By: #### C BC ####[facility] [address]kzpcbxzsb69[address] [place] [id number] Tripathi NEUT # 5.0 103/ul Normal 1.4-6.5 [facility] Comment on above: Performed By: #### C BC ####[facility] Lxvbpabael9834 [place] [address]DrKianna Airam Deuce Neutrophils/100 WBC (Bld) 65.7 % Normal 43.0-75.0 [facility] Comment on above: Performed By: #### C BC ####[facility] Vtfhksdiao034234 [address] [place], [place] [address]DrKianna Airam Deuce Platelet mean volume (Bld) [Entitic vol] 9.5 fL Normal 9.5-13.5 [facility] Comment on above: Performed By: #### C BC ####[facility] Mksjrncqbn861634 [address] [place], [place] [address]DrKianna Airam Deuce PLT 307 103/ul Normal 150-450 [facility] Comment on above: Performed By: #### C BC ####[facility] Zaobbkntba864234 [address] [place], [place] [address]DrKianna Airam Deuce RBC 3.61 106/ul Critically low 4.20-5.40 [facility] Comment on above: Performed By: #### C BC ####[facility] Qcxfbqcjel389734 [address] [place], [place] [address]DrKianna Airam Deuce WBC 7.5 103/ul Normal 4.0-11.0 [facility] Comment on above: Performed By: #### C BC ####[facility] Seoppfibbc412034 [address] [place], [place] [address]DrKianna Tripathi PROF 14(COMP METB)on 023 Albumin [Mass/Vol] 3.5 g/dL Normal 3.4-5.0 [facility] Comment on above: Performed By: #### C MP ####[facility] Vagedltnwg2417[address] [place], [place] [address]DrKianna Alegria Deuce Albumin/Globulin [Mass ratio] 1.1 {ratio} Normal [facility] Comment on above: Performed By: #### C MP ####[facility] Srfsreyazr0224 [place] [address]Dr. Airam Deuce ALP [Catalytic activity/Vol] 126 U/L Critically high 46-116 [facility] Comment on above: Performed By: #### C MP ####[facility] Vxfrgswayn1071 [place] [address]Dr. Airam Deuce ALT [Catalytic activity/Vol] 18 U/L Normal 14-59 [facility] Comment on above: Performed By: #### C MP ####[facility] Mlpvigmlbr114434 [address] [place], [place] [address]Dr. Airam Tripathi Anion gap [Moles/Vol] 11.1 mmol/L Normal [facility] Comment on above: Performed By: #### C MP ####[facility] Xowrcixizo667334 [address] [place], [place] [address]Dr. Airam Deuce AST [Catalytic activity/Vol] 26 U/L Normal 15-37 [facility] Comment on above: Performed By: #### C MP ####[facility] Swxoydimap912434 [address] [place], [place] [address]Dr. Airam Tripathi Bilirubin [Mass/Vol] 0.3 mg/dL Normal 0.2-1.0 [facility] Comment on above: Performed By: #### C MP ####[facility] Ykehhcpbmd145834 [address] [place], [place] [address]Dr. Airam Tripathi Calcium [Mass/Vol] 8.5 mg/dL Normal 8.5-10.1 [facility] Comment on above: Performed By: #### C MP ####[facility] Mqjfbackzf379434 [address] [place], [place] [address]Dr. Airam Tripathi Chloride [Moles/Vol] 98 mmol/L Normal 98-107 [facility] Comment on above: Performed By: #### C MP ####[facility] Evflzblxbt4356 [place] [address]Dr. Airam Tripathi CO2 [Moles/Vol] 23.9 mmol/L Normal 21.0-32.0 [facility] Comment on above: Performed By: #### C MP ####[facility] Fukrfvttdg2626 [place] [address]Dr. Selenaneil Deuce Creatinine [Mass/Vol] 1.40 mg/dL Critically high 0.55-1.02 [facility] Comment on above: Performed By: #### C MP ####[facility] Ojeucidibo1035 [place] [address]Dr. Airam Tripathi EGFR-AF [place]IZ[place] 46 mL/min/1.73m2 Critically low >=60 [facility] Comment on above: Performed By: #### C MP ####[facility] Bobsbbadlu883734 [address] [place], [place] [address]Dr. Airam Tripathi EGFR-NON AF CITIZEN OF [place] 38 mL/min/1.73m2 Critically low >=60 [facility] Comment on above: Performed By: #### C MP ####[facility] Henahxlqbv112734 [address] [place], [place] [address]Dr. Airam Tripathi Globulin (S) [Mass/Vol] 3.3 g/dL Normal [facility] Comment on above: Performed By: #### C MP ####[facility] Dipymilcwo556734 [address] [place], [place] [address]Dr. Airam Tripathi Glucose [Mass/Vol] 72 mg/dL Critically low 74-106 [facility] Comment on above: Performed By: #### C MP ####[facility] Xjdabiizvt455534 [address] [place], [place] [address]Dr. Airam Tripathi Potassium [Moles/Vol] 5.0 mmol/L Normal 3.5-5.1 [facility] Comment on above: Performed By: #### C MP ####[facility] Sgdightjqg507134 [address] [place], [place] [address]Dr. Airam Tripathi Protein [Mass/Vol] 6.8 g/dL Normal 6.4-8.2 [facility] Comment on above: Performed By: #### C MP ####[facility] Fwijssgqrk360334 [address] [place], [place] [address]Dr. Airam Tripathi Sodium [Moles/Vol] 128 mmol/L Critically low 136-145 Th e [facility] Comment on above: Performed By: #### C MP ####[facility] Zruyrscwsn922234 [address] [place], [place] [address]Dr. Airam Tripathi Urea nitrogen [Mass/Vol] 27.0 mg/dL Critically high 7.0-18.0 [facility] Comment on above: Performed By: #### C MP ####[facility] Lyyatiehqe274134 [address] [place], [place] [address]DrKianna Tripathi Urea nitrogen/Creatinine [Mass ratio] 19.3 mg/mg Normal [facility] Comment on above: Performed By: #### C MP ####[facility] Xmldueioca103334 [address] [place], [place] [address]Dr. Airam Tripathi OSMOLALITYon 09-10-2022 Osmolality [Osmolality] 275 mosm/kg Normal 275-295 [facility] Comment on above: Performed By: #### O SMO ####[facility] Ttxbwzzypm154634 [address] [place], [place] [address]DrKianna Tripathi CBC AUTO DIFFon 09-08-2022 BASO # 0.0 103/ul Normal 0.0-0.1 [facility] Comment on above: Performed By: #### C BC ####[facility] Wtftlmxuzk367534 [address] [place], [place] [address]Dr. Airam Tripathi Basophils/100 WBC (Bld) 0.5 % Normal 0.2-2.0 [facility] Comment on above: Performed By: #### C BC ####[facility] Kxlslbpoek915834 [address] [place], [place] [address]DrKianna Tripathi EO # 0.1 103/ul Normal 0.0-0.7 [facility] Comment on above: Performed By: #### C BC ####[facility] Mtsvhjegqh171334 [address] [place], [place] [address]Dr. Airam Tripathi Eosinophils/100 WBC (Bld) 1.7 % Normal 0.9-7.0 [facility] Comment on above: Performed By: #### C BC ####[facility] Switjenpjv083434 [address] [place], [place] [address]DrKianna Tripathi Erythrocyte distribution width (RBC) [Ratio] 14.7 % Normal 11.0-15.0 [facility] Comment on above: Performed By: #### C BC ####[facility] Xfgiarczyf4[address] [place] [address]Dr. Airam Tripathi Hematocrit (Bld) [Volume fraction] 30.3 % Critically low 36.0-48.0 [facility] Comment on above: Performed By: #### C BC ####[facility] Kcgmigonrm746934 [address] [place], [place] [address]Dr. Airam Tripathi Hemoglobin (Bld) [Mass/Vol] 9.3 g/dL Critically low 12.0-16.0 [facility] Comment on above: Performed By: #### C BC ####[facility] Qnmhuwhlvd116934 [address] [place], [place] [address]Dr. Selenaneil Deuce IG # 0.03 10e3/ul Normal 0.00-0.03 [facility] Comment on above: Performed By: #### C BC ####[facility] Ahqpmgvfbv230934 [address] [place], [place] [address]Dr. Selenaneil Tripathi IG % 0.5 % Normal 0.0-0.5 [facility] Comment on above: Performed By: #### C BC ####[facility] Xfugmarunn096834 [address] [place], [place] [address]Dr. Airam Tripathi LYMPH # 0.9 103/ul Critically low 1.2-3.8 [facility] Comment on above: Performed By: #### C BC ####[facility] Gklqosihvt171934 [address] [place], [place] [address]Dr. Airam Deuce Lymphocytes/100 WBC (Bld) 13.6 % Critically low 20.5-60.0 [facility] Comment on above: Performed By: #### C BC ####[facility] Mxvqpjyvqb444834 [address] [place], [place] [address]DrKianna Selenaneil Tripathi MANUAL DIFF REQ NO Normal [facility] Comment on above: Performed By: #### C BC ####[facility] Tifcptxsxf953[address] [place], [place] [address]Dr. Airam Tripathi MCH (RBC) [Entitic mass] 27.4 pg Normal 26.7-34.0 [facility] Comment on above: Performed By: #### C BC ####[facility] Vgukulknzc86[address] [place] [address]Dr. Airam Tripathi MCHC (RBC) [Mass/Vol] 30.7 g/dL Normal 29.9-35.2 [facility] Comment on above: Performed By: #### C BC ####[facility] Ytfbaxpipx537434 [address] [place], [place] [address]Dr. Airam Deuce MCV (RBC) [Entitic vol] 89.4 fL Normal 81.0-99.0 [facility] Comment on above: Performed By: #### C BC ####[facility] Rmozvkgghw403834 [address] [place], [place] [address]Dr. Airam Tripathi MONO # 0.5 103/ul Normal 0.3-0.8 [facility] Comment on above: Performed By: #### C BC ####[facility] Irhtcdaqwu863[address] [place], [place] [address]Dr. Selenaneil Tripathi Monocytes/100 WBC (Bld) 8.0 % Normal 1.7-12.0 [facility] Comment on above: Performed By: #### C BC ####[facility] Mkumpztmdf950534 [address] [place], [place] [address]Dr. Airam Deuce NEUT # 5.0 103/ul Normal 1.4-6.5 [facility] Comment on above: Performed By: #### C BC ####[facility] Sbxjyhlihw4215[address] [place], [place] [address]Dr. Airam Tripathi Neutrophils/100 WBC (Bld) 75.7 % Critically high 43.0-75.0 [facility] Comment on above: Performed By: #### C BC ####[facility] Bubambdacl810034 [address] [place], [place] [address]Dr. Airam Tripathi Platelet mean volume (Bld) [Entitic vol] 10.4 fL Normal 9.5-13.5 [facility] Comment on above: Performed By: #### C BC ####[facility] Ylowhtyple7[address] [place] [address]Dr. Airam Tripathi PLT 315 103/ul Normal 150-450 [facility] Comment on above: Performed By: #### C BC ####[facility] Otniiuylds3469 [place] [address]Dr. Selenaneil Deuce RBC 3.39 106/ul Critically low 4.20-5.40 [facility] Comment on above: Performed By: #### C BC ####[facility] Qjetxwefjl4754 [place] [address]Dr. Airam Tripathi WBC 6.5 103/ul Normal 4.0-11.0 [facility] Comment on above: Performed By: #### C BC ####[facility] Rkpxdxunxl173434 [address] [place], [place] [address]DrKianna Tripathi PROF 14(COMP METB)on 023 Albumin [Mass/Vol] 3.1 g/dL Critically low 3.4-5.0 [facility] Comment on above: Performed By: #### C MP ####[facility] Uuwlgfjsiz086634 [address] [place], [place] [address]Dr. Airam Tripathi Albumin/Globulin [Mass ratio] 1.0 {ratio} Normal [facility] Comment on above: Performed By: #### C MP ####[facility] Xjiycuquyh3043 [place] [address]Dr. Airam Tripathi ALP [Catalytic activity/Vol] 126 U/L Critically high 46-116 [facility] Comment on above: Performed By: #### C MP ####[facility] Iqzcruvtit5007 [place] [address]DrKianna Tripathi ALT [Catalytic activity/Vol] 18 U/L Normal 14-59 [facility] Comment on above: Performed By: #### C MP ####[facility] Hkrxijbldb7527 [place] [address]DrKianna Tripathi Anion gap [Moles/Vol] 11.4 mmol/L Normal [facility] Comment on above: Performed By: #### C MP ####[facility] Araxdjwcib2778[address] [place], [place] [address]DrKianna Tripathi AST [Catalytic activity/Vol] 25 U/L Normal 15-37 [facility] Comment on above: Performed By: #### C MP ####[facility] Daljucvkxj0099 [place] [address]Dr. Airam Deuce Bilirubin [Mass/Vol] 0.3 mg/dL Normal 0.2-1.0 [facility] Comment on above: Performed By: #### C MP ####[facility] Zotiykoxci949534 [address] [place], [place] [address]Dr. Airam Deuce Calcium [Mass/Vol] 8.6 mg/dL Normal 8.5-10.1 [facility] Comment on above: Performed By: #### C MP ####[facility] Yhrnjawyhz931834 [address] [place], [place] [address]Dr. Airam Tripathi Chloride [Moles/Vol] 97 mmol/L Critically low 98-107 [facility] Comment on above: Performed By: #### C MP ####[facility] Wcnhuhvtgl509834 [address] [place], [place] [address]Dr. Airam Deuce CO2 [Moles/Vol] 26.1 mmol/L Normal 21.0-32.0 [facility] Comment on above: Performed By: #### C MP ####[facility] Uwbmbtfddw474934 [address] [place], [place] [address]Dr. Selenaneil Tripathi Creatinine [Mass/Vol] 1.07 mg/dL Critically high 0.55-1.02 [facility] Comment on above: Performed By: #### C MP ####[facility] Fdopaxrlgz3539[address] [place], [place] [address]Dr. Selenaneil Deuce EGFR-AF [place]IZ[place] >60 Normal >=60 [facility] Comment on above: Performed By: #### C MP ####[facility] Pqvjwuuoiu9269[address] [place], [place] [address]Dr. Airam Tripathi EGFR-NON AF [place]IZ[place] 52 mL/min/1.73m2 Critically low >=60 [facility] Comment on above: Performed By: #### C MP ####[facility] Pwirngkmyi741634 [address] [place], [place] [address]Dr. Airam Tripathi Globulin (S) [Mass/Vol] 3.2 g/dL Normal [facility] Comment on above: Performed By: #### C MP ####[facility] Wdriozweot8[address] [place] [address]Dr. Airam Tripathi Glucose [Mass/Vol] 83 mg/dL Normal 74-106 [facility] Comment on above: Performed By: #### C MP ####[facility] Fbsiqatboc625634 [address] [place], [place] [address]Dr. Airam Tripathi Potassium [Moles/Vol] 5.5 mmol/L Critically high 3.5-5.1 [facility] Comment on above: Performed By: #### C MP ####[facility] Iabdhvguar297634 [address] [place], [place] [address]Dr. Airam Tripathi Protein [Mass/Vol] 6.3 g/dL Critically low 6.4-8.2 [facility] Comment on above: Performed By: #### C MP ####[facility] Vxwxmfcjxw887934 [address] [place], [place] [address]Dr. Airam Tripathi Sodium [Moles/Vol] 129 mmol/L Critically low 136-145 [facility] Comment on above: Performed By: #### C MP ####[facility] Hsffzjucpa704334 [address] [place], [place] [address]Dr. Airam Trpiathi Urea nitrogen [Mass/Vol] 37.0 mg/dL Critically high 7.0-18.0 [facility] Comment on above: Performed By: #### C MP ####[facility] Hledrozqxj666534 [address] [place], [place] [address]Dr. Airam Tripathi Urea nitrogen/Creatinine [Mass ratio] 34.6 mg/mg Normal [facility] Comment on above: Performed By: #### C MP ####[facility] Ichxssrmru2424[address] [place], [place] [address]Dr. Airam Tripathi OSMOLALITYon 09-02-2022 Osmolality [Osmolality] 279 mosm/kg Normal 275-295 [facility] Comment on above: Performed By: #### O SMO ####[facility] Plwglrsnia955[address] [place], [place] [address]Dr. Airam Tripathi CBC AUTO DIFFon 08-31-2022 BASO # 0.0 103/ul Normal 0.0-0.1 [facility] Comment on above: Performed By: #### C BC ####[facility] Ggnxyaspso8220[address] [place], [place] [address]Dr. Airam Tripathi Basophils/100 WBC (Bld) 0.4 % Normal 0.2-2.0 [facility] Comment on above: Performed By: #### C BC ####[facility] Kdwqspaezl0358[address] [place], [place] [address]Dr. Airam Tripathi EO # 0.2 103/ul Normal 0.0-0.7 [facility] Comment on above: Performed By: #### C BC ####[facility] Fnwcavqdap194834 [address] [place], [place] [address]Dr. Selenaneil Deuce Eosinophils/100 WBC (Bld) 3.2 % Normal 0.9-7.0 [facility] Comment on above: Performed By: #### C BC ####[facility] Lxzrgzwcky054234 [address] [place], [place] [address]Dr. Airam Tripathi Erythrocyte distribution width (RBC) [Ratio] 14.4 % Normal 11.0-15.0 [facility] Comment on above: Performed By: #### C BC ####[facility] Srmidnyvms294234 [address] [place], [place] [address]Dr. Selenaneil Deuce Hematocrit (Bld) [Volume fraction] 27.8 % Critically low 36.0-48.0 [facility] Comment on above: Performed By: #### C BC ####[facility] Ebskzowovt156034 [address] [place], [place] [address]Dr. Airam Tripathi Hemoglobin (Bld) [Mass/Vol] 8.7 g/dL Critically low 12.0-16.0 [facility] Comment on above: Performed By: #### C BC ####[facility] Vrdcegfmsc438034 [address] [place], [place] [address]Dr. Airam Tripathi IG # 0.05 10e3/ul Critically high 0.00-0.03 [facility] Comment on above: Performed By: #### C BC ####[facility] Fnfnibkqdq0569 [place] [address]Dr. Selenaneil Tripathi IG % 0.7 % Critically high 0.0-0.5 [facility] Comment on above: Performed By: #### C BC ####[facility] Paizttlkmz9138 [place] [address]Dr. Selenaneil Deuce LYMPH # 1.7 103/ul Normal 1.2-3.8 [facility] Comment on above: Performed By: #### C BC ####[facility] Cabqfdfuho746[address] [place], [place] [address]DrKianna Selenaneil Tripathi Lymphocytes/100 WBC (Bld) 23.6 % Normal 20.5-60.0 [facility] Comment on above: Performed By: #### C BC ####[facility] Pzrjpnqrvr2313[address] [place], [place] [address]DrKianna Tripathi MANUAL DIFF REQ NO Normal [facility] Comment on above: Performed By: #### C BC ####[facility] Jhuviflhfp2336 [place] [address]Dr. Airam Deuce MCH (RBC) [Entitic mass] 27.8 pg Normal 26.7-34.0 [facility] Comment on above: Performed By: #### C BC ####[facility] Iriyugvxir6913[address] [place], [place] [address]Dr. Airam Deuce MCHC (RBC) [Mass/Vol] 31.3 g/dL Normal 29.9-35.2 [facility] Comment on above: Performed By: #### C BC ####[facility] Bprihlixeq3908[address] [place], [place] [address]DrKianna Selenaneil Tripathi MCV (RBC) [Entitic vol] 88.8 fL Normal 81.0-99.0 [facility] Comment on above: Performed By: #### C BC ####[facility] Hkeqqnlnac756[address] [place], [place] [address]DrKianna Tripathi MONO # 0.5 103/ul Normal 0.3-0.8 [facility] Comment on above: Performed By: #### C BC ####[facility] Gosriyujeo[address] [place], [place] [id number] Airam Tripathi Monocytes/100 WBC (Bld) 6.9 % Normal 1.7-12.0 [facility] Comment on above: Performed By: #### C BC ####[facility] [address]mrlxh[address] [place] [id number]. Airam Tripathi NEUT # 4.7 103/ul Normal 1.4-6.5 [facility] Comment on above: Performed By: #### C BC ####[facility] Cxwijqwrmn5886 [place] [address]Dr. Airam Tripathi Neutrophils/100 WBC (Bld) 65.2 % Normal 43.0-75.0 [facility] Comment on above: Performed By: #### C BC ####[facility] Liyczkyvtw28[address] [place] [address]Dr. Airam Tripathi Platelet mean volume (Bld) [Entitic vol] 9.8 fL Normal 9.5-13.5 [facility] Comment on above: Performed By: #### C BC ####[facility] Zbghymewfv1823 [place] [address]Dr. Airam Tripathi PLT 225 103/ul Normal 150-450 [facility] Comment on above: Performed By: #### C BC ####[facility] Ccethtxnjh4973 [place] [address]Dr. Airam Tripathi RBC 3.13 106/ul Critically low 4.20-5.40 [facility] Comment on above: Performed By: #### C BC ####[facility] Ztbxfmugoi[address] [place] [address]Dr. Airam Tripathi WBC 7.3 103/ul Normal 4.0-11.0 [facility] Comment on above: Performed By: #### C BC ####[facility] Kqugkhttfc[address] [place] [address]Dr. Airam Deuce PROF 14(COMP METB)on 023 Albumin [Mass/Vol] 3.0 g/dL Critically low 3.4-5.0 [facility] Comment on above: Performed By: #### C MP ####[facility] Xkfkgyygep[address] [place] [address]Dr. Airam Tripathi Albumin/Globulin [Mass ratio] 1.1 {ratio} Normal [facility] Comment on above: Performed By: #### C MP ####[facility] Xorzhonbmw0[address] [place], [place] [address]Dr. Airam Tripathi ALP [Catalytic activity/Vol] 132 U/L Critically high 46-116 [facility] Comment on above: Performed By: #### C MP ####[facility] Uvtmaloskb756234 [address] [place], [place] [address]Dr. Airam Tripathi ALT [Catalytic activity/Vol] 20 U/L Normal 14-59 [facility] Comment on above: Performed By: #### C MP ####[facility] Xufhccedtv[address] [place], [place] [address]Dr. Airam Tripathi Anion gap [Moles/Vol] 9.5 mmol/L Normal [facility] Comment on above: Performed By: #### C MP ####[facility] Guissecwti033[address] [place], [place] [address]Dr. Airam Tripathi AST [Catalytic activity/Vol] 25 U/L Normal 15-37 [facility] Comment on above: Performed By: #### C MP ####[facility] Cetozvnfsv277534 [address] [place], [place] [address]Dr. Airam Tripathi Bilirubin [Mass/Vol] 0.2 mg/dL Normal 0.2-1.0 [facility] Comment on above: Performed By: #### C MP ####[facility] Avwqgpvsix1744[address] [place], [place] [address]Dr. Airam Tripathi Calcium [Mass/Vol] 7.9 mg/dL Critically low 8.5-10.1 [facility] Comment on above: Performed By: #### C MP ####[facility] Ljtqbeemqn255134 [address] [place], [place] [address]Dr. Airam Tripathi Chloride [Moles/Vol] 97 mmol/L Critically low 98-107 [facility] Comment on above: Performed By: #### C MP ####[facility] Bgrkeqbgva525734 [address] [place], [place] [address]Dr. Airam Tripathi CO2 [Moles/Vol] 27.3 mmol/L Normal 21.0-32.0 [facility] Comment on above: Performed By: #### C MP ####[facility] Ryfakkealh[address] [place] [address]Dr. Airam Deuce Creatinine [Mass/Vol] 1.58 mg/dL Critically high 0.55-1.02 [facility] Comment on above: Performed By: #### C MP ####[facility] Ztfoithktb921134 [address] [place], [place] [address]Dr. Airam Deuce EGFR-AF [place]IZ[place] 40 mL/min/1.73m2 Critically low >=60 [facility] Comment on above: Performed By: #### C MP ####[facility] Irasyoremh304234 [address] [place], [place] [address]Dr. Selenaneil Deuce EGFR-NON AF CITIZEN OF [place] 33 mL/min/1.73m2 Critically low >=60 [facility] Comment on above: Performed By: #### C MP ####[facility] Jmmtygmphk775934 [address] [place], [place] [address]Dr. Airam Deuce Globulin (S) [Mass/Vol] 2.8 g/dL Normal [facility] Comment on above: Performed By: #### C MP ####[facility] Hufoykkaux6760[address] [place], [place] [address]DrKianna Waltersneil Deuce Glucose [Mass/Vol] 111 mg/dL Critically high 74-106 [facility] Comment on above: Performed By: #### C MP ####[facility] Lkufpuvbud737834 [address] [place], [place] [address]DrKianna Airam Deuce Potassium [Moles/Vol] 4.8 mmol/L Normal 3.5-5.1 [facility] Comment on above: Performed By: #### C MP ####[facility] Rqtiucehij369234 [address] [place], [place] [address]DrKianna Tripathi Protein [Mass/Vol] 5.8 g/dL Critically low 6.4-8.2 [facility] Comment on above: Performed By: #### C MP ####[facility] Woehbnwdoj311634 [address] [place], [place] [address]Dr. Airam Tripathi Sodium [Moles/Vol] 129 mmol/L Critically low 136-145 [facility] Comment on above: Performed By: #### C MP ####[facility] Buhemxsvdj472334 [address] [place], [place] [address]Dr. Airam Tripathi Urea nitrogen [Mass/Vol] 44.0 mg/dL Critically high 7.0-18.0 [facility] Comment on above: Performed By: #### C MP ####[facility] Ujgyjlczms710534 [address] [place], [place] [address]Dr. Airam Tripathi Urea nitrogen/Creatinine [Mass ratio] 27.8 mg/mg Normal [facility] Comment on above: Performed By: #### C MP ####[facility] Zzbytkupbr288134 [address] [place], [place] [address]Dr. Airam Tripathi OSMOLALITYon 08-28-2022 Osmolality [Osmolality] 288 mosm/kg Normal 275-295 [facility] Comment on above: Performed By: #### O SMO ####[facility] Rqsrdkyqqk503934 [address] [place], [place] [address]Dr. Airam Tripathi CBC AUTO DIFFon 08-25-2022 BASO # 0.0 103/ul Normal 0.0-0.1 [facility] Comment on above: Performed By: #### C BC ####[facility] Hyyasayqdh706734 [address] [place], [place] [address]Dr. Airam Deuce Basophils/100 WBC (Bld) 0.5 % Normal 0.2-2.0 [facility] Comment on above: Performed By: #### C BC ####[facility] Gvtgrfqoib450234 [address] [place], [place] [address]Dr. Airam Tripathi EO # 0.4 103/ul Normal 0.0-0.7 [facility] Comment on above: Performed By: #### C BC ####[facility] Dfccerzxhz556834 [address] [place], [place] [address]Dr. Airam Deuce Eosinophils/100 WBC (Bld) 4.8 % Normal 0.9-7.0 [facility] Comment on above: Performed By: #### C BC ####[facility] Oiytsbylko094534 [address] [place], [place] [address]Dr. Airam Tripathi Erythrocyte distribution width (RBC) [Ratio] 14.2 % Normal 11.0-15.0 [facility] Comment on above: Performed By: #### C BC ####[facility] Ohlslbzjxv787734 [address] [place], [place] [address]Dr. Airam Tripathi Hematocrit (Bld) [Volume fraction] 31.1 % Critically low 36.0-48.0 [facility] Comment on above: Performed By: #### C BC ####[facility] Mbwbpcqvwg968034 [address] [place], [place] [address]Dr. Selenaneil Tripathi Hemoglobin (Bld) [Mass/Vol] 9.7 g/dL Critically low 12.0-16.0 [facility] Comment on above: Performed By: #### C BC ####[facility] Bvmbpxohgn455934 [address] [place], [place] [address]Dr. Airam Tripathi IG # 0.05 10e3/ul Critically high 0.00-0.03 [facility] Comment on above: Performed By: #### C BC ####[facility] Ggbpixgnkt530434 [address] [place], [place] [address]Dr. Selenaniel Tripathi IG % 0.6 % Critically high 0.0-0.5 [facility] Comment on above: Performed By: #### C BC ####[facility] Mlkdqzytzm658634 [address] [place], [place] [address]Dr. Airam Tripathi LYMPH # 1.7 103/ul Normal 1.2-3.8 [facility] Comment on above: Performed By: #### C BC ####[facility] Thcxacpbwj641734 [address] [place], [place] [address]Dr. Airam Tripathi Lymphocytes/100 WBC (Bld) 19.6 % Critically low 20.5-60.0 [facility] Comment on above: Performed By: #### C BC ####[facility] Bzcgwcxzwp242534 [address] [place], [place] [address]Dr. Selenaneil Tripathi MANUAL DIFF REQ NO Normal [facility] Comment on above: Performed By: #### C BC ####[facility] Hunosjzypn[address] [place], [place] [id number]. Airam Tripathi MCH (RBC) [Entitic mass] 28.2 pg Normal 26.7-34.0 [facility] Comment on above: Performed By: #### C BC ####[facility] E[address]gcr[address] [place] [address]Dr. Airam Tripathi MCHC (RBC) [Mass/Vol] 31.2 g/dL Normal 29.9-35.2 [facility] Comment on above: Performed By: #### C BC ####[facility] Wnzbfyjmmu[address] [place] [address]Dr. Airam Deuce MCV (RBC) [Entitic vol] 90.4 fL Normal 81.0-99.0 [facility] Comment on above: Performed By: #### C BC ####[facility] Kroyinuotd948434 [address] [place], [place] [address]Dr. Airam Deuce MONO # 0.6 103/ul Normal 0.3-0.8 [facility] Comment on above: Performed By: #### C BC ####[facility] Ceccphwlxq332234 [address] [place], [place] [address]Dr. Selenaneil Tripathi Monocytes/100 WBC (Bld) 7.4 % Normal 1.7-12.0 [facility] Comment on above: Performed By: #### C BC ####[facility] Gghjpiukcp716834 [address] [place], [place] [address]Dr. Airam Tripathi NEUT # 5.8 103/ul Normal 1.4-6.5 [facility] Comment on above: Performed By: #### C BC ####[facility] Nfdfcihiwg942134 [address] [place], [place] [address]Dr. Selenaneil Tripathi Neutrophils/100 WBC (Bld) 67.1 % Normal 43.0-75.0 [facility] Comment on above: Performed By: #### C BC ####[facility] Bkpxjmcsvp040934 [address] [place], [place] [address]Dr. Airam Deuce Platelet mean volume (Bld) [Entitic vol] 9.9 fL Normal 9.5-13.5 [facility] Comment on above: Performed By: #### C BC ####[facility] [address]qu[address]ch[address] [place] [address]Dr. Airam Tripathi PLT 320 103/ul Normal 150-450 [facility] Comment on above: Performed By: #### C BC ####[facility] Voopydoeol[address] [place] [address]Dr. Airam Tripathi RBC 3.44 106/ul Critically low 4.20-5.40 [facility] Comment on above: Performed By: #### C BC ####[facility] Vbdqbdbkvg5794 [place] [address]Dr. Airam Tripathi WBC 8.6 103/ul Normal 4.0-11.0 [facility] Comment on above: Performed By: #### C BC ####[facility] Oiudmeizbs6687[address] [place], [place] [address]Dr. Airam Tripathi PROF 14(COMP METB)on 023 Albumin [Mass/Vol] 3.4 g/dL Normal 3.4-5.0 [facility] Comment on above: Performed By: #### C MP ####[facility] Wvvqtfrzgq8[address] [place] [address]Dr. Airam Tripathi Albumin/Globulin [Mass ratio] 1.1 {ratio} Normal [facility] Comment on above: Performed By: #### C MP ####[facility] Jocxyiroab[address]85 [place] [address]Dr. Airam Deuce ALP [Catalytic activity/Vol] 170 U/L Critically high 46-116 [facility] Comment on above: Performed By: #### C MP ####[facility] Cgjfkhunia6[address] [place] [address]Dr. Airam Deuce ALT [Catalytic activity/Vol] 22 U/L Normal 14-59 [facility] Comment on above: Performed By: #### C MP ####[facility] Yfrjzlcgwc4360 [place] [address]Dr. Selenaneil Deuce Anion gap [Moles/Vol] 14.4 mmol/L Normal [facility] Comment on above: Performed By: #### C MP ####[facility] Qslaauitat[address] [place] [address]Dr. Airam Tripathi AST [Catalytic activity/Vol] 25 U/L Normal 15-37 [facility] Comment on above: Performed By: #### C MP ####[facility] Exqmpvysio7[address] [place] [address]Dr. Airam Tripathi Bilirubin [Mass/Vol] 0.3 mg/dL Normal 0.2-1.0 [facility] Comment on above: Performed By: #### C MP ####[facility] Idpitxvkeq3420 [place] [address]Dr. Airam Tripathi Calcium [Mass/Vol] 8.2 mg/dL Critically low 8.5-10.1 [facility] Comment on above: Performed By: #### C MP ####[facility] Ghdctuazxi312034 [address] [place], [place] [address]Dr. Airam Tripathi Chloride [Moles/Vol] 98 mmol/L Normal 98-107 [facility] Comment on above: Performed By: #### C MP ####[facility] Gpwbltlfmh876034 [address] [place], [place] [address]Dr. Airam Tripathi CO2 [Moles/Vol] 27.8 mmol/L Normal 21.0-32.0 [facility] Comment on above: Performed By: #### C MP ####[facility] Ittwnlftay480934 [address] [place], [place] [address]Dr. Airam Tripathi Creatinine [Mass/Vol] 1.82 mg/dL Critically high 0.55-1.02 [facility] Comment on above: Performed By: #### C MP ####[facility] Tijubjnxzi97[address] [place], [place] [address]Dr. Airam Tripathi EGFR-AF [place]IZ[place] 34 mL/min/1.73m2 Critically low >=60 [facility] Comment on above: Performed By: #### C MP ####[facility] Ozkxcrcezx493134 [address] [place], [place] [address]Dr. Airam Tripathi EGFR-NON AF [place]IZ[place] 28 mL/min/1.73m2 Critically low >=60 [facility] Comment on above: Performed By: #### C MP ####[facility] Cyihiyopfp18[address] [place] [address]Dr. Airam Tripathi Globulin (S) [Mass/Vol] 3.2 g/dL Normal [facility] Comment on above: Performed By: #### C MP ####[facility] Pmbfecusuu5[address] [place] [address]Dr. Airam Tripathi Glucose [Mass/Vol] 78 mg/dL Normal 74-106 [facility] Comment on above: Performed By: #### C MP ####[facility] Xtndmilchd917734 [address] [place], [place] [address]Dr. Aiarm Tripathi Potassium [Moles/Vol] 5.2 mmol/L Critically high 3.5-5.1 [facility] Comment on above: Performed By: #### C MP ####[facility] Tzzbsdacpp401834 [address] [place], [place] [address]Dr. Airam Tripathi Protein [Mass/Vol] 6.6 g/dL Normal 6.4-8.2 [facility] Comment on above: Performed By: #### C MP ####[facility] Husnmpktpr686534 [address] [place], [place] [address]Dr. Airam Tripathi Sodium [Moles/Vol] 135 mmol/L Critically low 136-145 [facility] Comment on above: Performed By: #### C MP ####[facility] Vmsbdvgnjx513234 [address] [place], [place] [address]Dr. Airam Tripathi Urea nitrogen [Mass/Vol] 51.0 mg/dL Critically high 7.0-18.0 [facility] Comment on above: Performed By: #### C MP ####[facility] Tcqlpodssw166334 [address] [place], [place] [address]Dr. Airam Tripathi Urea nitrogen/Creatinine [Mass ratio] 28.0 mg/mg Normal [facility] Comment on above: Performed By: #### C MP ####[facility] Hgefaokuru643134 [address] [place], [place] [address]Dr. Airam Tripathi OSMOLALITYon 08-18-2022 Osmolality [Osmolality] 280 mosm/kg Normal 275-295 [facility] Comment on above: Performed By: #### O SMO ####[facility] Lgvydqjgih[address] [place] [address]Dr. Airam Tripathi CBC AUTO DIFFon 08-16-2022 BASO # 0.0 103/ul Normal 0.0-0.1 [facility] Comment on above: Performed By: #### C BC ####[facility] Sritnljkfo056134 [address] [place], [place] [address]Dr. Airam Deuce Basophils/100 WBC (Bld) 0.2 % Normal 0.2-2.0 [facility] Comment on above: Performed By: #### C BC ####[facility] Wkdyfxgdfc268734 [address] [place], [place] [address]Dr. Airam Deuce EO # 0.2 103/ul Normal 0.0-0.7 [facility] Comment on above: Performed By: #### C BC ####[facility] Nnixkcwawh104834 [address] [place], [place] [address]Dr. Selenaneil Tripathi Eosinophils/100 WBC (Bld) 2.4 % Normal 0.9-7.0 [facility] Comment on above: Performed By: #### C BC ####[facility] Wfxnagdogn6328[address] [place], [place] [address]Dr. Airam Tripathi Erythrocyte distribution width (RBC) [Ratio] 14.2 % Normal 11.0-15.0 [facility] Comment on above: Performed By: #### C BC ####[facility] Bleovyjmnq615[address] [place], [place] [address]Dr. Airam Tripathi Hematocrit (Bld) [Volume fraction] 30.1 % Critically low 36.0-48.0 [facility] Comment on above: Performed By: #### C BC ####[facility] Fxepmyhynf1504[address] [place], [place] [address]Dr. Selenaneil Tripathi Hemoglobin (Bld) [Mass/Vol] 9.2 g/dL Critically low 12.0-16.0 [facility] Comment on above: Performed By: #### C BC ####[facility] Fsxxgplqzp094[address] [place], [place] [address]Dr. Airam Tripathi IG # 0.04 10e3/ul Critically high 0.00-0.03 [facility] Comment on above: Performed By: #### C BC ####[facility] Qgopssmvtt74[address] [place] [address]Dr. Airam Tripathi IG % 0.4 % Normal 0.0-0.5 [facility] Comment on above: Performed By: #### C BC ####[facility] Awytyjpfga6[address] [place] [address]Dr. Airam Tripathi LYMPH # 0.9 103/ul Critically low 1.2-3.8 [facility] Comment on above: Performed By: #### C BC ####[facility] Ztsbhtvslm4499 [place] [address]Dr. Airam Tripathi Lymphocytes/100 WBC (Bld) 9.3 % Critically low 20.5-60.0 [facility] Comment on above: Performed By: #### C BC ####[facility] Zchemutget[address] [place] [address]Dr. Airam Tripathi MANUAL DIFF REQ NO Normal [facility] Comment on above: Performed By: #### C BC ####[facility] Iscnrnabay[address] [place], [place] [id number]. Airam Tripathi MCH (RBC) [Entitic mass] 27.7 pg Normal 26.7-34.0 [facility] Comment on above: Performed By: #### C BC ####[facility] Qgmobnqgzu2262 [place] [address]Dr. Airam Tripathi MCHC (RBC) [Mass/Vol] 30.6 g/dL Normal 29.9-35.2 [facility] Comment on above: Performed By: #### C BC ####[facility] [address]ufimklvnw70[address] [place] [address]Dr. Airam Tripathi MCV (RBC) [Entitic vol] 90.7 fL Normal 81.0-99.0 [facility] Comment on above: Performed By: #### C BC ####[facility] Wyocjmzfkr5[address] [place] [address]Dr. Airam Tripathi MONO # 0.5 103/ul Normal 0.3-0.8 [facility] Comment on above: Performed By: #### C BC ####[facility] Imfshngpuh10[address] [place] [address]Dr. Airam Tripathi Monocytes/100 WBC (Bld) 5.3 % Normal 1.7-12.0 [facility] Comment on above: Performed By: #### C BC ####[facility] Ndjxpjssen2326 [place] [address]Dr. Airam Tripathi NEUT # 7.7 103/ul Critically high 1.4-6.5 [facility] Comment on above: Performed By: #### C BC ####[facility] Vqjsqifyzd8062 [place] [address]Dr. Airam Tripathi Neutrophils/100 WBC (Bld) 82.4 % Critically high 43.0-75.0 [facility] Comment on above: Performed By: #### C BC ####[facility] Gvcqvntdyx3261 [place] [address]Dr. Airam Tripathi Platelet mean volume (Bld) [Entitic vol] 9.8 fL Normal 9.5-13.5 [facility] Comment on above: Performed By: #### C BC ####[facility] Eijunlkund[address] [place] [address]Dr. Airam Tripathi PLT 285 103/ul Normal 150-450 [facility] Comment on above: Performed By: #### C BC ####[facility] Ohnunuqexc5[address] [place] [address]Dr. Airam Tripathi RBC 3.32 106/ul Critically low 4.20-5.40 [facility] Comment on above: Performed By: #### C BC ####[facility] Vvcnhqftuz[address] [place], [place] [address]Dr. Airam Tripathi WBC 9.4 103/ul Normal 4.0-11.0 [facility] Comment on above: Performed By: #### C BC ####[facility] Thwcwzivik11[address] [place], [place] [address]Dr. Airam Tripathi MRI WRIST RT WO CONon 2022 MRI WRIST RT WO CON Normal [facility] PROF 14(COMP METB)on 023 Albumin [Mass/Vol] 3.1 g/dL Critically low 3.4-5.0 [facility] Comment on above: Performed By: #### C MP ####[facility] Zmymdgwcey[address] [place] [address]Dr. Selenaneil Deuce Albumin/Globulin [Mass ratio] 0.9 {ratio} Normal [facility] Comment on above: Performed By: #### C MP ####[facility] Uvvughvoek[address] [place] [address]Dr. Airam Tripathi ALP [Catalytic activity/Vol] 162 U/L Critically high 46-116 [facility] Comment on above: Performed By: #### C MP ####[facility] Hvwbpcubef25[address] [place] [address]Dr. Airam Tripathi ALT [Catalytic activity/Vol] 19 U/L Normal 14-59 [facility] Comment on above: Performed By: #### C MP ####[facility] Pegzcllwhu9815[address] [place], [place] [address]Dr. Airam Tripathi Anion gap [Moles/Vol] 13.0 mmol/L Normal [facility] Comment on above: Performed By: #### C MP ####[facility] Ptxlmnrsyt1874[address] [place], [place] [address]Dr. Airam Tripathi AST [Catalytic activity/Vol] 21 U/L Normal 15-37 [facility] Comment on above: Performed By: #### C MP ####[facility] Ekbidtolkg0316[address] [place], [place] [address]Dr. Airam Tripathi Bilirubin [Mass/Vol] 0.3 mg/dL Normal 0.2-1.0 [facility] Comment on above: Performed By: #### C MP ####[facility] Obzpmnxelf3933[address] [place], [place] [address]Dr. Airam Tripathi Calcium [Mass/Vol] 8.4 mg/dL Critically low 8.5-10.1 [facility] Comment on above: Performed By: #### C MP ####[facility] Czllkfehuh9[address] [place], [place] [address]Dr. Airam Tripathi Chloride [Moles/Vol] 103 mmol/L Normal 98-107 [facility] Comment on above: Performed By: #### C MP ####[facility] Arzdzystxm[address] [place] [address]Dr. Airam Tripathi CO2 [Moles/Vol] 23.3 mmol/L Normal 21.0-32.0 [facility] Comment on above: Performed By: #### C MP ####[facility] Txaldnctpi[address] [place] [address]Dr. Airam Tripathi Creatinine [Mass/Vol] 1.02 mg/dL Normal 0.55-1.02 [facility] Comment on above: Performed By: #### C MP ####[facility] Y[address]pbtjmev[address] [place] [address]Dr. Airam Tripathi EGFR-AF [place]IZ[place] >60 Normal >=60 [facility] Comment on above: Performed By: #### C MP ####[facility] Rlrhgiufsh[address] [place] [address]Dr. Airam Deuce EGFR-NON AF CITIZEN [place] 55 mL/min/1.73m2 Critically low >=60 [facility] Comment on above: Performed By: #### C MP ####[facility] Vxoiplvqtd76[address] [place] [address]Dr. Airam Tripathi Globulin (S) [Mass/Vol] 3.4 g/dL Normal [facility] Comment on above: Performed By: #### C MP ####[facility] Bzxvhetbdc3[address] [place] [address]Dr. Airam Tripathi Glucose [Mass/Vol] 88 mg/dL Normal 74-106 [facility] Comment on above: Performed By: #### C MP ####[facility] Bxqnaygqdt3346 [place] [address]Dr. Airam Tripathi Potassium [Moles/Vol] 4.3 mmol/L Normal 3.5-5.1 [facility] Comment on above: Performed By: #### C MP ####[facility] Wfrjpdpsmw44[address] [place] [address]Dr. Airam Tripathi Protein [Mass/Vol] 6.5 g/dL Normal 6.4-8.2 [facility] Comment on above: Performed By: #### C MP ####[facility] [address] [place] [phone]. Airam Tripathi Sodium [Moles/Vol] 135 mmol/L Critically low 136-145 [facility] Comment on above: Performed By: #### C MP ####[facility] Y[address]tox[address]ukit[address] [place] [address]Dr. Airam Tripathi Urea nitrogen [Mass/Vol] 27.0 mg/dL Critically high 7.0-18.0 [facility] Comment on above: Performed By: #### C MP ####[facility] Slmvgwcqbe[address] [place] [address]Dr. Airam Trpiathi Urea nitrogen/Creatinine [Mass ratio] 26.5 mg/mg Normal [facility] Comment on above: Performed By: #### C MP ####[facility] Lunobrijif[address] [place], [place] [address]Dr. Airam Tripathi CT HEAD WO CONon 08-06-2022 CT HEAD WO CON Normal [facility] CT LSPINE WO CONon 3 CT LSPINE WO CON Normal [facility] XR HAND RT MIN 3Von 08-06-19 23 XR HAND RT MIN 3V Normal [facility] XR KNEE LT 4V or >on 023 XR KNEE LT 4V or > Normal [facility] XR WRIST RT MIN 3 Von 2022 XR WRIST RT MIN 3 V Normal [facility] OSMOLALITYon 08-05-2022 Osmolality [Osmolality] 282 mosm/kg Normal 275-295 [facility] Comment on above: Performed By: #### O SMO ####[facility] [address] [place] [address]Dr. Airam Tripathi CBC AUTO DIFFon 08-03-2022 BASO # 0.0 103/ul Normal 0.0-0.1 [facility] Comment on above: Performed By: #### C BC ####[facility] Zxbzgq[address]blz[address] [place] [address]Dr. Airam Tripathi Basophils/100 WBC (Bld) 0.5 % Normal 0.2-2.0 [facility] Comment on above: Performed By: #### C BC ####[facility] Ovnflvuebr[address] [place] [address]DrKianna Airam Tripathi EO # 0.5 103/ul Normal 0.0-0.7 [facility] Comment on above: Performed By: #### C BC ####[facility] Mktzfgvawh[address] [place], [place] [address]Dr. Selenaneil Tripathi Eosinophils/100 WBC (Bld) 5.2 % Normal 0.9-7.0 [facility] Comment on above: Performed By: #### C BC ####[facility] Wandbdifnf118[address] [place], [place] [address]Dr. Selenaneil Tripathi Erythrocyte distribution width (RBC) [Ratio] 14.3 % Normal 11.0-15.0 [facility] Comment on above: Performed By: #### C BC ####[facility] Gouruuknhx9[address] [place], [place] [address]Dr. Selenaneil Tripathi Hematocrit (Bld) [Volume fraction] 31.4 % Critically low 36.0-48.0 [facility] Comment on above: Performed By: #### C BC ####[facility] Bqtaozjyjf[address] [place], [place] [address]Dr. Airam Tripathi Hemoglobin (Bld) [Mass/Vol] 9.5 g/dL Critically low 12.0-16.0 [facility] Comment on above: Performed By: #### C BC ####[facility] Iqemjtepcv4[address] [place], [place] [address]Dr. Selenaneil Tripathi IG # 0.05 10e3/ul Critically high 0.00-0.03 [facility] Comment on above: Performed By: #### C BC ####[facility] Mnohrvxzwt257[address] [place], [place] [address]Dr. Selenaneil Tripathi IG % 0.6 % Critically high 0.0-0.5 [facility] Comment on above: Performed By: #### C BC ####[facility] Tzfdjbzyzd67[address] [place], [place] [address]DrKianna Tripathi LYMPH # 1.5 103/ul Normal 1.2-3.8 [facility] Comment on above: Performed By: #### C BC ####[facility] N[address]cvazqfr[address] [place] [address]Dr. Airam Deuce Lymphocytes/100 WBC (Bld) 17.6 % Critically low 20.5-60.0 [facility] Comment on above: Performed By: #### C BC ####[facility] Ujzjw[address]non[address] [place] [address]DrKianna Tripathi MANUAL DIFF REQ NO Normal [facility] Comment on above: Performed By: #### C BC ####[facility] Qxrdmlzqxs20[address] [place] [phone]. Airam Tripathi MCH (RBC) [Entitic mass] 29.0 pg Normal 26.7-34.0 [facility] Comment on above: Performed By: #### C BC ####[facility] Abrojucbar4532[address] [place], [place] [address]Dr. Airam Tripathi MCHC (RBC) [Mass/Vol] 30.3 g/dL Normal 29.9-35.2 [facility] Comment on above: Performed By: #### C BC ####[facility] Oibhufax[address] [place], [place] [id number] Selenaneil Tripathi MCV (RBC) [Entitic vol] 95.7 fL Normal 81.0-99.0 [facility] Comment on above: Performed By: #### C BC ####[facility] Cxosppaswr32[address] [place], [place] [address]Dr. Airam Tripathi MONO # 0.7 103/ul Normal 0.3-0.8 [facility] Comment on above: Performed By: #### C BC ####[facility] Akrebderno[address] [place], [place] [id number] Tripathi Monocytes/100 WBC (Bld) 8.5 % Normal 1.7-12.0 [facility] Comment on above: Performed By: #### C BC ####[facility] Gqnzbtkfvu[address] [place], [place] [id number] Tripathi NEUT # 5.8 103/ul Normal 1.4-6.5 [facility] Comment on above: Performed By: #### C BC ####[facility] Xpijteewjn[address] [place] [phone]. Airam Tripahti Neutrophils/100 WBC (Bld) 67.6 % Normal 43.0-75.0 [facility] Comment on above: Performed By: #### C BC ####[facility] Zzyijtnvtd94[address] [place] [phone]. Airam Deuce Platelet mean volume (Bld) [Entitic vol] 9.5 fL Normal 9.5-13.5 [facility] Comment on above: Performed By: #### C BC ####[facility] Qtkrnzypmm[address]93 [place] [phone]. Airam Tripathi PLT 292 103/ul Normal 150-450 [facility] Comment on above: Performed By: #### C BC ####[facility] [address]qctaz[address] [place] [address]Dr. Airam Tripathi RBC 3.28 106/ul Critically low 4.20-5.40 [facility] Comment on above: Performed By: #### C BC ####[facility] Kvrzkgfdfy[address] [place] [phone]. Airam Deuce WBC 8.6 103/ul Normal 4.0-11.0 [facility] Comment on above: Performed By: #### C BC ####[facility] V[address]vbyrufk[address] [place] [phone] Tripathi PROF 14(COMP METB)on 023 Albumin [Mass/Vol] 3.0 g/dL Critically low 3.4-5.0 [facility] Comment on above: Performed By: #### C MP ####[facility] O[address]sebni[address] [place] [phone] Tripathi Albumin/Globulin [Mass ratio] 0.9 {ratio} Normal [facility] Comment on above: Performed By: #### C MP ####[facility] Scbnymfcwr66[address] [place] [phone] Tripathi ALP [Catalytic activity/Vol] 184 U/L Critically high 46-116 [facility] Comment on above: Performed By: #### C MP ####[facility] Leufyefopq[address] [place] [phone]. Airam Tripathi ALT [Catalytic activity/Vol] 18 U/L Normal 14-59 [facility] Comment on above: Performed By: #### C MP ####[facility] Awddnefqmr80[address] [place] [phone]. Airam Tripathi Anion gap [Moles/Vol] 11.2 mmol/L Normal Th [facility] Comment on above: Performed By: #### C MP ####[facility] Ubtxtatwhn39[address] [place] [phone]. Airam Tripathi AST [Catalytic activity/Vol] 19 U/L Normal 15-37 [facility] Comment on above: Performed By: #### C MP ####[facility] Aheqyypgfo[address] [place] [address]Dr. Airam Deuce Bilirubin [Mass/Vol] 0.3 mg/dL Normal 0.2-1.0 [facility] Comment on above: Performed By: #### C MP ####[facility] G[address]iffomcp[address] [place] [address]Dr. Airam Deuce Calcium [Mass/Vol] 8.8 mg/dL Normal 8.5-10.1 [facility] Comment on above: Performed By: #### C MP ####[facility] Eumuokszkc[address] [place] [address]Dr. Airam Deuce Chloride [Moles/Vol] 101 mmol/L Normal 98-107 [facility] Comment on above: Performed By: #### C MP ####[facility] Oaikasagnz[address] [place] [address]Dr. Airam Deuce CO2 [Moles/Vol] 25.4 mmol/L Normal 21.0-32.0 [facility] Comment on above: Performed By: #### C MP ####[facility] P[address]usz[address]al[address] [place] [address]Dr. Selenaneil Tripathi Creatinine [Mass/Vol] 1.05 mg/dL Critically high 0.55-1.02 [facility] Comment on above: Performed By: #### C MP ####[facility] Oh[address]atxhcc[address] [place] [phone]. Airam Tripathi EGFR-AF [place]IZ[place] >60 Normal >=60 [facility] Comment on above: Performed By: #### C MP ####[facility] Pqmmmgtzzp28[address] [place] [phone]. Airam Deuce EGFR-NON AF CITIZEN [place] 53 mL/min/1.73m2 Critically low >=60 [facility] Comment on above: Performed By: #### C MP ####[facility] Kojarouzur[address] [place] [address]Dr. Airam Deuce Globulin (S) [Mass/Vol] 3.4 g/dL Normal [facility] Comment on above: Performed By: #### C MP ####[facility] Pmtohndtsr75[address] [place] [address]Dr. Selenaneil Deuce Glucose [Mass/Vol] 78 mg/dL Normal 74-106 [facility] Comment on above: Performed By: #### C MP ####[facility] Fgddogndcx3[address] [place] [address]Dr. Airam Deuce Potassium [Moles/Vol] 4.6 mmol/L Normal 3.5-5.1 [facility] Comment on above: Performed By: #### C MP ####[facility] Vefosnzwwc8[address] [place] [address]Dr. Selenaneil Deuce Protein [Mass/Vol] 6.4 g/dL Normal 6.4-8.2 [facility] Comment on above: Performed By: #### C MP ####[facility] Cezcwjcdco16[address] [place] [phone]. Selenaneil Tripathi Sodium [Moles/Vol] 133 mmol/L Critically low 136-145 [facility] Comment on above: Performed By: #### C MP ####[facility] Inqfxgibyk12[address] [place] [address]Dr. Selenaneil Deuce Urea nitrogen [Mass/Vol] 26.0 mg/dL Critically high 7.0-18.0 [facility] Comment on above: Performed By: #### C MP ####[facility] Qfmxytyrer8599 [place] [address]Dr. Airam Tripathi Urea nitrogen/Creatinine [Mass ratio] 24.8 mg/mg Normal [facility] Comment on above: Performed By: #### C MP ####[facility] Hpmylqtitg0519 [place] [phone]. Airam Deuce OSMOLALITYon 07-29-2022 Osmolality [Osmolality] 287 mosm/kg Normal 275-295 [facility] Comment on above: Performed By: #### O SMO ####[facility] Tvdyjuuqnm6[address] [place], [place] [address]Dr. Airam Deuce CBC AUTO DIFFon 07-27-2022 BASO # 0.0 103/ul Normal 0.0-0.1 [facility] Comment on above: Performed By: #### C BC ####[facility] Mdcmzddwig8015[address] [place], [place] [address]Dr. Airam Tripathi Basophils/100 WBC (Bld) 0.4 % Normal 0.2-2.0 [facility] Comment on above: Performed By: #### C BC ####[facility] Jcviqqiunx38[address] [place], [place] [address]Dr. Selenaneil Tripathi EO # 0.2 103/ul Normal 0.0-0.7 [facility] Comment on above: Performed By: #### C BC ####[facility] Lsevcbrzsp8[address] [place], [place] [address]Dr. Airam Tripathi Eosinophils/100 WBC (Bld) 2.6 % Normal 0.9-7.0 [facility] Comment on above: Performed By: #### C BC ####[facility] Psdninncru6515[address] [place], [place] [address]Dr. Selenaneil Tripathi Erythrocyte distribution width (RBC) [Ratio] 14.2 % Normal 11.0-15.0 [facility] Comment on above: Performed By: #### C BC ####[facility] Hgymbhlbcs9[address] [place], [place] [address]Dr. Airam Tripathi Hematocrit (Bld) [Volume fraction] 31.3 % Critically low 36.0-48.0 [facility] Comment on above: Performed By: #### C BC ####[facility] Izijlagxur33[address] [place] [address]Dr. Airam Tripathi Hemoglobin (Bld) [Mass/Vol] 9.3 g/dL Critically low 12.0-16.0 [facility] Comment on above: Performed By: #### C BC ####[facility] Ehsuenssdc9537[address] [place], [place] [address]Dr. Selenaneil Tripathi IG # 0.05 10e3/ul Critically high 0.00-0.03 [facility] Comment on above: Performed By: #### C BC ####[facility] Fbejrrfnmq345[address] [place], [place] [address]Dr. Selenaneil Tripathi IG % 0.7 % Critically high 0.0-0.5 [facility] Comment on above: Performed By: #### C BC ####[facility] Lxnxxhjqyk350[address] [place], [place] [address]Dr. Airam Tripathi LYMPH # 1.0 103/ul Critically low 1.2-3.8 [facility] Comment on above: Performed By: #### C BC ####[facility] Clifdvaifa0[address] [place], [place] [address]Dr. Selenaneil Tripathi Lymphocytes/100 WBC (Bld) 13.4 % Critically low 20.5-60.0 [facility] Comment on above: Performed By: #### C BC ####[facility] Ydooiumfgj6954[address] [place], [place] [address]Dr. Airam Tripathi MANUAL DIFF REQ NO Normal [facility] Comment on above: Performed By: #### C BC ####[facility] Djecrtqhss8880[address] [place], [place] [address]Dr. Airam Tripathi MCH (RBC) [Entitic mass] 28.8 pg Normal 26.7-34.0 [facility] Comment on above: Performed By: #### C BC ####[facility] Jaduilzcqi8466[address] [place], [place] [address]Dr. Airam Tripathi MCHC (RBC) [Mass/Vol] 29.7 g/dL Critically low 29.9-35.2 [facility] Comment on above: Performed By: #### C BC ####[facility] Dxecanwmga[address] [place] [phone]. Airam Tripathi MCV (RBC) [Entitic vol] 96.9 fL Normal 81.0-99.0 [facility] Comment on above: Performed By: #### C BC ####[facility] Mvishmbltu46[address] [place] [address]Dr. Airam Tripathi MONO # 0.5 103/ul Normal 0.3-0.8 [facility] Comment on above: Performed By: #### C BC ####[facility] Cexxwxznaq2217[address] [place], [place] [address]Dr. Airam Deuce Monocytes/100 WBC (Bld) 6.3 % Normal 1.7-12.0 [facility] Comment on above: Performed By: #### C BC ####[facility] Ycbgupejso9339[address] [place], [place] [address]Dr. Airam Tripathi NEUT # 5.8 103/ul Normal 1.4-6.5 [facility] Comment on above: Performed By: #### C BC ####[facility] Cotdfywmxf[address] [place], [place] [address]Dr. Airam Deuce Neutrophils/100 WBC (Bld) 76.6 % Critically high 43.0-75.0 [facility] Comment on above: Performed By: #### C BC ####[facility] Qryqzrwteh0232[address] [place], [place] [address]Dr. Airam Deuce Platelet mean volume (Bld) [Entitic vol] 10.3 fL Normal 9.5-13.5 [facility] Comment on above: Performed By: #### C BC ####[facility] Vaqetczmre9[address] [place], [place] [address]Dr. Airam Deuce PLT 265 103/ul Normal 150-450 [facility] Comment on above: Performed By: #### C BC ####[facility] Nqtoduvvep27[address] [place] [phone]. Airam Tripathi RBC 3.23 106/ul Critically low 4.20-5.40 [facility] Comment on above: Performed By: #### C BC ####[facility] Oqislzuacc[address] [place] [address]Dr. Airam Tripathi WBC 7.6 103/ul Normal 4.0-11.0 [facility] Comment on above: Performed By: #### C BC ####[facility] Ahacgjfuzk50[address] [place] [address]Dr. Airam Tripathi PROF 14(COMP METB)on 023 Albumin [Mass/Vol] 2.9 g/dL Critically low 3.4-5.0 [facility] Comment on above: Performed By: #### C MP ####[facility] Dzqokgukuj94[address] [place] [address]Dr. Airam Tripathi Albumin/Globulin [Mass ratio] 0.8 {ratio} Normal [facility] Comment on above: Performed By: #### C MP ####[facility] Maepjhdpea43[address] [place] [address]Dr. Airam Tripathi ALP [Catalytic activity/Vol] 175 U/L Critically high 46-116 [facility] Comment on above: Performed By: #### C MP ####[facility] Fjbxxnjukq5[address] [place], [place] [address]Dr. Airam Tripathi ALT [Catalytic activity/Vol] 24 U/L Normal 14-59 [facility] Comment on above: Performed By: #### C MP ####[facility] Oicsstgljw64[address] [place] [address]Dr. Airam Tripathi Anion gap [Moles/Vol] 14.3 mmol/L Normal [facility] Comment on above: Performed By: #### C MP ####[facility] Vnaxrqanut5[address] [place] [address]Dr. Airam Tripathi AST [Catalytic activity/Vol] 25 U/L Normal 15-37 [facility] Comment on above: Performed By: #### C MP ####[facility] Ukssnszazq[address] [place] [address]Dr. Airam Tripathi Bilirubin [Mass/Vol] 0.2 mg/dL Normal 0.2-1.0 [facility] Comment on above: Performed By: #### C MP ####[facility] Yywmdmarpa1888 [place] [phone]. Airam Tripathi Calcium [Mass/Vol] 8.6 mg/dL Normal 8.5-10.1 [facility] Comment on above: Performed By: #### C MP ####[facility] Yjgbgzqosb3613 [place] [phone]. Airam Tripathi Chloride [Moles/Vol] 102 mmol/L Normal 98-107 [facility] Comment on above: Performed By: #### C MP ####[facility] Qrhqpjqgzm2245 [place] [address]Dr. Airam Tripathi CO2 [Moles/Vol] 23.7 mmol/L Normal 21.0-32.0 [facility] Comment on above: Performed By: #### C MP ####[facility] Ynupcszgxb75[address] [place], [place] [address]Dr. Airam Tripathi Creatinine [Mass/Vol] 1.29 mg/dL Critically high 0.55-1.02 [facility] Comment on above: Performed By: #### C MP ####[facility] Svbnxpwymp[address] [place], [place] [address]Dr. Airam Tripathi EGFR-AF [place]IZ[place] 51 mL/min/1.73m2 Critically low >=60 [facility] Comment on above: Performed By: #### C MP ####[facility] Kvftqlewlr[address] [place], [place] [address]Dr. Airam Deuce EGFR-NON AF [place]IZ[place] 42 mL/min/1.73m2 Critically low >=60 [facility] Comment on above: Performed By: #### C MP ####[facility] [address]qckfdzub[address] [place] [phone]. Airam Tripathi Globulin (S) [Mass/Vol] 3.6 g/dL Normal [facility] Comment on above: Performed By: #### C MP ####[facility] Gngdwsqklk64[address] [place] [address]Dr. Airam Deuce Glucose [Mass/Vol] 84 mg/dL Normal 74-106 [facility] Comment on above: Performed By: #### C MP ####[facility] Lfvjpohecr3605 [place] [address]Dr. Selenaneil Deuce Potassium [Moles/Vol] 5.0 mmol/L Normal 3.5-5.1 [facility] Comment on above: Performed By: #### C MP ####[facility] Mhqnvvwrys4715[address] [place], [place] [address]Dr. Airam Tripathi Protein [Mass/Vol] 6.5 g/dL Normal 6.4-8.2 [facility] Comment on above: Performed By: #### C MP ####[facility] Dingjbhhvz23[address] [place], [place] [address]Dr. Airam Tripathi Sodium [Moles/Vol] 135 mmol/L Critically low 136-145 [facility] Comment on above: Performed By: #### C MP ####[facility] Ckhaqoweur214[address] [place], [place] [address]Dr. Airam Tripathi Urea nitrogen [Mass/Vol] 28.0 mg/dL Critically high 7.0-18.0 [facility] Comment on above: Performed By: #### C MP ####[facility] Cnhhkxkeiz6569[address] [place], [place] [address]Dr. Selenaneil Tripathi Urea nitrogen/Creatinine [Mass ratio] 21.7 mg/mg Normal [facility] Comment on above: Performed By: #### C MP ####[facility] Yckhacomep1954[address] [place], [place] [address]Dr. Airam Tripathi XR LSPINE MIN 4 VIEWSon 02 XR LSPINE MIN 4 VIEWS Normal [facility] OSMOLALITYon 07-24-2022 Osmolality [Osmolality] 279 mosm/kg Normal 275-295 [facility] Comment on above: Performed By: #### O SMO ####[facility] Djwolnumgg277[address] [place], [place] [address]Dr. Airam Tripathi CBC AUTO DIFFon 07-21-2022 BASO # 0.0 103/ul Normal 0.0-0.1 [facility] Comment on above: Performed By: #### C BC ####[facility] Anirhaavpe[address] [place], [place] [id number]. Airam Tripathi Basophils/100 WBC (Bld) 0.4 % Normal 0.2-2.0 [facility] Comment on above: Performed By: #### C BC ####[facility] Iaaigjtnez6984[address] [place], [place] [address]Dr. Airam Tripathi EO # 0.2 103/ul Normal 0.0-0.7 [facility] Comment on above: Performed By: #### C BC ####[facility] Aarexarhvu4566[address] [place], [place] [address]Dr. Airam Tripathi Eosinophils/100 WBC (Bld) 2.3 % Normal 0.9-7.0 [facility] Comment on above: Performed By: #### C BC ####[facility] Mojgrjgybi050[address] [place], [place] [address]Dr. Airam Tripathi Erythrocyte distribution width (RBC) [Ratio] 13.6 % Normal 11.0-15.0 [facility] Comment on above: Performed By: #### C BC ####[facility] Hcpqdruvle89[address] [place], [place] [address]Dr. Airam Tripathi Hematocrit (Bld) [Volume fraction] 32.6 % Critically low 36.0-48.0 [facility] Comment on above: Performed By: #### C BC ####[facility] Duwanutyqx9998[address] [place], [place] [address]Dr. Airam Tripathi Hemoglobin (Bld) [Mass/Vol] 9.5 g/dL Critically low 12.0-16.0 [facility] Comment on above: Performed By: #### C BC ####[facility] Okganqwahq[address] [place], [place] [address]Dr. Airam Tripathi IG # 0.03 10e3/ul Normal 0.00-0.03 [facility] Comment on above: Performed By: #### C BC ####[facility] Kiegmlnmrp14[address] [place], [place] [address]Dr. Airam Tripathi IG % 0.4 % Normal 0.0-0.5 [facility] Comment on above: Performed By: #### C BC ####[facility] Ncxwsbhlpu3167 [place] [phone]. Airam Deuce LYMPH # 1.4 103/ul Normal 1.2-3.8 [facility] Comment on above: Performed By: #### C BC ####[facility] Gwzyoyleup6[address] [place] [address]Dr. Selenaneil Tripathi Lymphocytes/100 WBC (Bld) 18.2 % Critically low 20.5-60.0 [facility] Comment on above: Performed By: #### C BC ####[facility] Chvhocqrtx48[address] [place] [address]Dr. Selenaneil Tripathi MANUAL DIFF REQ NO Normal [facility] Comment on above: Performed By: #### C BC ####[facility] [address]xynwmscvh[address] [place] [address]Dr. Airam Deuce MCH (RBC) [Entitic mass] 29.5 pg Normal 26.7-34.0 [facility] Comment on above: Performed By: #### C BC ####[facility] Lnvqymxpuz57[address] [place] [address]Dr. Airam Deuce MCHC (RBC) [Mass/Vol] 29.1 g/dL Critically low 29.9-35.2 [facility] Comment on above: Performed By: #### C BC ####[facility] Mhkehxhiea72[address] [place] [address]Dr. Airam Tripathi MCV (RBC) [Entitic vol] 101.2 fL Critically high 81.0-99.0 [facility] Comment on above: Performed By: #### C BC ####[facility] Vvzwroctly01[address] [place] [address]Dr. Airam Tripathi MONO # 0.6 103/ul Normal 0.3-0.8 [facility] Comment on above: Performed By: #### C BC ####[facility] Mffzkcueoe1417 [place] [address]Dr. Airam Tripathi Monocytes/100 WBC (Bld) 7.9 % Normal 1.7-12.0 [facility] Comment on above: Performed By: #### C BC ####[facility] Dfrzliyxhb1833 [place] [phone]. Airam Tripathi NEUT # 5.5 103/ul Normal 1.4-6.5 [facility] Comment on above: Performed By: #### C BC ####[facility] Zkzsjffchy2949 [place] [address]Dr. Airam Tripathi Neutrophils/100 WBC (Bld) 70.8 % Normal 43.0-75.0 [facility] Comment on above: Performed By: #### C BC ####[facility] Qbptxhphxa8426 [place] [address]Dr. Airam Tripathi Platelet mean volume (Bld) [Entitic vol] 9.6 fL Normal 9.5-13.5 [facility] Comment on above: Performed By: #### C BC ####[facility] Hiccmhhcwb[address] [place], [place] [address]Dr. Airam Deuce PLT 265 103/ul Normal 150-450 [facility] Comment on above: Performed By: #### C BC ####[facility] Mefrxstsll1701 [place] [address]Dr. Airam Deuce RBC 3.22 106/ul Critically low 4.20-5.40 [facility] Comment on above: Performed By: #### C BC ####[facility] Dbekuuhccg4[address] [place], [place] [address]Dr. Airam Tripathi WBC 7.8 103/ul Normal 4.0-11.0 [facility] Comment on above: Performed By: #### C BC ####[facility] Njvbbgennr1703 [place] [address]Dr. Airam Tripathi PROF 14(COMP METB)on 023 Albumin [Mass/Vol] 2.9 g/dL Critically low 3.4-5.0 [facility] Comment on above: Performed By: #### C MP ####[facility] Dhkgzcgbju7595 [place] [address]Dr. Airam Tripathi Albumin/Globulin [Mass ratio] 0.9 {ratio} Normal [facility] Comment on above: Performed By: #### C MP ####[facility] Rcxkmaqldi4433 [place] [phone]. Airam Tripathi ALP [Catalytic activity/Vol] 176 U/L Critically high 46-116 [facility] Comment on above: Performed By: #### C MP ####[facility] Hcuvlgzdbc2241 [place] [address]Dr. Airam Tripathi ALT [Catalytic activity/Vol] 19 U/L Normal 14-59 [facility] Comment on above: Performed By: #### C MP ####[facility] Xwtwcshyav9512 [place] [address]Dr. Airam Deuce Anion gap [Moles/Vol] 12.6 mmol/L Normal Th [facility] Comment on above: Performed By: #### C MP ####[facility] Yayfrdobov4784[address] [place], [place] [address]Dr. Airam Tripathi AST [Catalytic activity/Vol] 25 U/L Normal 15-37 [facility] Comment on above: Performed By: #### C MP ####[facility] Pfjicfqptv3[address] [place], [place] [address]Dr. Airam Tripathi Bilirubin [Mass/Vol] 0.2 mg/dL Normal 0.2-1.0 [facility] Comment on above: Performed By: #### C MP ####[facility] Ewbyvuyqtt482734 [address] [place], [place] [address]Dr. Airam Deuce Calcium [Mass/Vol] 8.5 mg/dL Normal 8.5-10.1 [facility] Comment on above: Performed By: #### C MP ####[facility] Yssyvpxcza6540[address] [place], [place] [address]Dr. Airam Deuce Chloride [Moles/Vol] 101 mmol/L Normal 98-107 [facility] Comment on above: Performed By: #### C MP ####[facility] Jixyzsamab182234 [address] [place], [place] [address]Dr. Airam Deuce CO2 [Moles/Vol] 25.9 mmol/L Normal 21.0-32.0 [facility] Comment on above: Performed By: #### C MP ####[facility] Iccasinzyi8939[address] [place], [place] [address]Dr. Airam Deuce Creatinine [Mass/Vol] 1.11 mg/dL Critically high 0.55-1.02 [facility] Comment on above: Performed By: #### C MP ####[facility] Pidxhdbrsq5442 [place] [address]Dr. Airam Deuce EGFR-AF CITIZEN OF [place] >60 Normal >=60 [facility] Comment on above: Performed By: #### C MP ####[facility] Hnbqxgfnia8640[address] [place], [place] [address]Dr. Selenaneil Deuce EGFR-NON AF CITIZEN OF [place] 50 mL/min/1.73m2 Critically low >=60 [facility] Comment on above: Performed By: #### C MP ####[facility] Utoxxglkwk490134 [address] [place], [place] [address]Dr. Airam Tripathi Globulin (S) [Mass/Vol] 3.2 g/dL Normal [facility] Comment on above: Performed By: #### C MP ####[facility] Juatsxvepv709334 [address] [place], [place] [address]Dr. Airam Tripathi Glucose [Mass/Vol] 80 mg/dL Normal 74-106 [facility] Comment on above: Performed By: #### C MP ####[facility] Dcyzsfgzmp828534 [address] [place], [place] [address]Dr. Airam Tripathi Potassium [Moles/Vol] 3.5 mmol/L Normal 3.5-5.1 [facility] Comment on above: Performed By: #### C MP ####[facility] Jldbfygsck2336[address] [place], [place] [address]Dr. Airam Tripathi Protein [Mass/Vol] 6.1 g/dL Critically low 6.4-8.2 [facility] Comment on above: Performed By: #### C MP ####[facility] Cklbtxffch239934 [address] [place], [place] [address]Dr. Airam Tripathi Sodium [Moles/Vol] 136 mmol/L Normal 136-145 [facility] Comment on above: Performed By: #### C MP ####[facility] Gftdjuuhnk453734 [address] [place], [place] [address]Dr. Airam Tripathi Urea nitrogen [Mass/Vol] 31.0 mg/dL Critically high 7.0-18.0 [facility] Comment on above: Performed By: #### C MP ####[facility] Kabglwzsyg872934 [address] [place], [place] [address]Dr. Airam Tripathi Urea nitrogen/Creatinine [Mass ratio] 27.9 mg/mg Normal [facility] Comment on above: Performed By: #### C MP ####[facility] Dnjnjzfvou9[address] [place], [place] [address]Dr. Airam Tripathi OSMOLALITYon 07-19-2022 Osmolality [Osmolality] 285 mosm/kg Normal 275-295 [facility] Comment on above: Performed By: #### O SMO ####[facility] Ojhmeqjxla733634 [address] [place], [place] [address]Dr. Airam Tripathi CBC AUTO DIFFon 07-15-2022 BASO # 0.0 103/ul Normal 0.0-0.1 [facility] Comment on above: Performed By: #### C BC ####[facility] Vqbymddcja8[address]34 [address] [place], [place] [address]Dr. Airam Deuce Basophils/100 WBC (Bld) 0.2 % Normal 0.2-2.0 [facility] Comment on above: Performed By: #### C BC ####[facility] Pukezbgrin4354[address] [place], [place] [address]Dr. Airam Tripathi EO # 0.1 103/ul Normal 0.0-0.7 [facility] Comment on above: Performed By: #### C BC ####[facility] Ejdhtrwsyo4894[address] [place], [place] [address]Dr. Airam Deuce Eosinophils/100 WBC (Bld) 1.4 % Normal 0.9-7.0 [facility] Comment on above: Performed By: #### C BC ####[facility] Vxjtlvkgaj3060[address] [place], [place] [address]Dr. Airam Tripathi Erythrocyte distribution width (RBC) [Ratio] 13.0 % Normal 11.0-15.0 [facility] Comment on above: Performed By: #### C BC ####[facility] Mmqhnhqxxx38[address] [place] [address]Dr. Airam Tripathi Hematocrit (Bld) [Volume fraction] 29.3 % Critically low 36.0-48.0 [facility] Comment on above: Performed By: #### C BC ####[facility] Afswrjwcpr0787 [place] [address]Dr. Airam Tripathi Hemoglobin (Bld) [Mass/Vol] 10.3 g/dL Critically low 12.0-16.0 [facility] Comment on above: Performed By: #### C BC ####[facility] Jfzpusgnja4874 [place] [address]Dr. Selenaneil Deuce IG # 0.05 10e3/ul Critically high 0.00-0.03 [facility] Comment on above: Performed By: #### C BC ####[facility] Foiwoovhlk3743 [place] [address]Dr. Selenaneil Tripathi IG % 0.6 % Critically high 0.0-0.5 [facility] Comment on above: Performed By: #### C BC ####[facility] Jedvemgyeb6368[address] [place], [place] [address]DrKianna Selenaneil Tripathi LYMPH # 0.9 103/ul Critically low 1.2-3.8 [facility] Comment on above: Performed By: #### C BC ####[facility] Xqycngutas8049 [place] [address]Dr. Selenaneil Tripathi Lymphocytes/100 WBC (Bld) 10.6 % Critically low 20.5-60.0 [facility] Comment on above: Performed By: #### C BC ####[facility] Lttrqeckxd9366 [place] [address]DrKianna Selenaneil Tripathi MANUAL DIFF REQ NO Normal [facility] Comment on above: Performed By: #### C BC ####[facility] Jryindrmli1772 [place] [address]DrKianna Airam Deuce MCH (RBC) [Entitic mass] 29.3 pg Normal 26.7-34.0 [facility] Comment on above: Performed By: #### C BC ####[facility] Uxslefvfwe55[address] [place], [place] [address]Dr. Airam Tripathi MCHC (RBC) [Mass/Vol] 35.2 g/dL Normal 29.9-35.2 [facility] Comment on above: Performed By: #### C BC ####[facility] Arvcknhuul3139 [place] [phone]. Airam Tripathi MCV (RBC) [Entitic vol] 83.5 fL Normal 81.0-99.0 [facility] Comment on above: Performed By: #### C BC ####[facility] Fllvewxnng0121 [place] [address]Dr. Airam Tripathi MONO # 0.5 103/ul Normal 0.3-0.8 [facility] Comment on above: Performed By: #### C BC ####[facility] Rdllcdqarr8780 [place] [address]Dr. Airam Deuce Monocytes/100 WBC (Bld) 5.1 % Normal 1.7-12.0 [facility] Comment on above: Performed By: #### C BC ####[facility] Otllisywev1974 [place] [address]Dr. Airam Tripathi NEUT # 7.3 103/ul Critically high 1.4-6.5 [facility] Comment on above: Performed By: #### C BC ####[facility] Jpvxkxywvy7832 [place] [address]Dr. Airam Tripathi Neutrophils/100 WBC (Bld) 82.1 % Critically high 43.0-75.0 [facility] Comment on above: Performed By: #### C BC ####[facility] Fqayytebzn2445 [place] [phone]. Airam Tripathi Platelet mean volume (Bld) [Entitic vol] 8.9 fL Critically low 9.5-13.5 [facility] Comment on above: Performed By: #### C BC ####[facility] Zrsxdlwppv2476 [place] [address]Dr. Airam Deuce PLT 290 103/ul Normal 150-450 [facility] Comment on above: Performed By: #### C BC ####[facility] Mjnlcskfog8974 [place] [address]Dr. Airam Deuce RBC 3.51 106/ul Critically low 4.20-5.40 [facility] Comment on above: Performed By: #### C BC ####[facility] Cbatxahlwd1188 [place] [address]Dr. Airam Deuce WBC 8.9 103/ul Normal 4.0-11.0 [facility] Comment on above: Performed By: #### C BC ####[facility] Gzhcppxhtn6083 [place] [address]Dr. Airam Tripathi PROF 14(COMP METB)on 023 Albumin [Mass/Vol] 3.2 g/dL Critically low 3.4-5.0 [facility] Comment on above: Performed By: #### C MP ####[facility] Qmtddrwqmy016434 [address] [place], [place] [address]Dr. Airam Tripathi Albumin/Globulin [Mass ratio] 0.9 {ratio} Normal [facility] Comment on above: Performed By: #### C MP ####[facility] Klcoslnkdj175634 [address] [place], [place] [address]Dr. Airam Deuce ALP [Catalytic activity/Vol] 194 U/L Critically high 46-116 [facility] Comment on above: Performed By: #### C MP ####[facility] Zjrpefllbm726934 [address] [place], [place] [address]Dr. Airam Tripathi ALT [Catalytic activity/Vol] 19 U/L Normal 14-59 [facility] Comment on above: Performed By: #### C MP ####[facility] Lbxntgfnwo591834 [address] [place], [place] [address]Dr. Airam Tripathi Anion gap [Moles/Vol] 11.3 mmol/L Normal [facility] Comment on above: Performed By: #### C MP ####[facility] Fvdfsshdpz918034 [address] [place], [place] [address]Dr. Airam Tripathi AST [Catalytic activity/Vol] 24 U/L Normal 15-37 [facility] Comment on above: Performed By: #### C MP ####[facility] Ioaynonwnl610934 [address] [place], [place] [address]Dr. Airam Tripathi Bilirubin [Mass/Vol] 0.2 mg/dL Normal 0.2-1.0 [facility] Comment on above: Performed By: #### C MP ####[facility] Boxfmrvztt8068 [place] [address]Dr. Airam Tripathi Calcium [Mass/Vol] 8.7 mg/dL Normal 8.5-10.1 [facility] Comment on above: Performed By: #### C MP ####[facility] Vcuwivythb033[address] [place], [place] [address]Dr. Airam Tripathi Chloride [Moles/Vol] 101 mmol/L Normal 98-107 [facility] Comment on above: Performed By: #### C MP ####[facility] Phoxisyzms695234 [address] [place], [place] [address]Dr. Airam Tripathi CO2 [Moles/Vol] 27.2 mmol/L Normal 21.0-32.0 [facility] Comment on above: Performed By: #### C MP ####[facility] Klacmmrjbt145034 [address] [place], [place] [address]Dr. Airam Tripathi Creatinine [Mass/Vol] 1.17 mg/dL Critically high 0.55-1.02 [facility] Comment on above: Performed By: #### C MP ####[facility] Uemlrljvwr[address] [place], [place] [address]Dr. Airam Tripathi EGFR-AF [place]IZ[place] 57 mL/min/1.73m2 Critically low >=60 [facility] Comment on above: Performed By: #### C MP ####[facility] Shgwdavsbz1158[address] [place], [place] [address]Dr. Airam Deuce EGFR-NON AF [place]IZ[place] 47 mL/min/1.73m2 Critically low >=60 [facility] Comment on above: Performed By: #### C MP ####[facility] Vkjpkighet113934 [address] [place], [place] [address]Dr. Airam Deuce Globulin (S) [Mass/Vol] 3.5 g/dL Normal [facility] Comment on above: Performed By: #### C MP ####[facility] Kgasxojugx[address] [place], [place] [id number]. Airam Tripathi Glucose [Mass/Vol] 86 mg/dL Normal 74-106 [facility] Comment on above: Performed By: #### C MP ####[facility] Wwtbhfdtkb6267 [place] [address]Dr. Airam Tripathi Potassium [Moles/Vol] 5.5 mmol/L Critically high 3.5-5.1 [facility] Comment on above: Performed By: #### C MP ####[facility] Zrnzwqjxee4511 [place] [address]Dr. Airam Tripathi Protein [Mass/Vol] 6.7 g/dL Normal 6.4-8.2 [facility] Comment on above: Performed By: #### C MP ####[facility] Enoahnvnti2602 [place] [address]Dr. Airam Tripathi Sodium [Moles/Vol] 134 mmol/L Critically low 136-145 [facility] Comment on above: Performed By: #### C MP ####[facility] Qwsgdpwzow1200[address] [place], [place] [address]Dr. Airam Tripathi Urea nitrogen [Mass/Vol] 26.0 mg/dL Critically high 7.0-18.0 [facility] Comment on above: Performed By: #### C MP ####[facility] Kqrvzplkym4624[address] [place], [place] [address]Dr. Airam Tripathi Urea nitrogen/Creatinine [Mass ratio] 22.2 mg/mg Normal [facility] Comment on above: Performed By: #### C MP ####[facility] Pgydokpmmf5050 [place] [address]Dr. Airam Tripathi OSMOLALITYon 07-08-2022 Osmolality [Osmolality] 273 mosm/kg Critically low 275-295 [facility] Comment on above: Performed By: #### O SMO ####[facility] Swwksqceun1576[address] [place], [place] [address]Dr. Airam Tripathi CBC AUTO DIFFon 07-07-2022 BASO # 0.0 103/ul Normal 0.0-0.1 [facility] Comment on above: Performed By: #### C BC ####[facility] Mqfaeinzzc5444 [place] [address]Dr. Airam Tripathi Basophils/100 WBC (Bld) 0.4 % Normal 0.2-2.0 [facility] Comment on above: Performed By: #### C BC ####[facility] Qvulieqvnc3490 [place] [address]Dr. Airam Tripathi EO # 0.1 103/ul Normal 0.0-0.7 [facility] Comment on above: Performed By: #### C BC ####[facility] Vurhfxrzpa385[address] [place], [place] [address]Dr. Airam Tripathi Eosinophils/100 WBC (Bld) 1.6 % Normal 0.9-7.0 [facility] Comment on above: Performed By: #### C BC ####[facility] Dupdsxrhmi1857[address] [place], [place] [address]Dr. Airam Tripathi Erythrocyte distribution width (RBC) [Ratio] 13.1 % Normal 11.0-15.0 [facility] Comment on above: Performed By: #### C BC ####[facility] Kvsuvwxaed54[address] [place], [place] [address]Dr. Airam Tripathi Hematocrit (Bld) [Volume fraction] 33.7 % Critically low 36.0-48.0 [facility] Comment on above: Performed By: #### C BC ####[facility] Dgkhjnrcnt5406 [place] [phone]. Airam Tripathi Hemoglobin (Bld) [Mass/Vol] 9.9 g/dL Critically low 12.0-16.0 [facility] Comment on above: Performed By: #### C BC ####[facility] Lutnqrieas5274 [place] [address]Dr. Airam Tripathi IG # 0.05 10e3/ul Critically high 0.00-0.03 [facility] Comment on above: Performed By: #### C BC ####[facility] Ucwsgjvffq[address] [place], [place] [id number]. Airam Tripathi IG % 0.6 % Critically high 0.0-0.5 [facility] Comment on above: Performed By: #### C BC ####[facility] Fnnlauvbso3290 [place] [address]Dr. Airam Tripathi LYMPH # 1.2 103/ul Normal 1.2-3.8 [facility] Comment on above: Performed By: #### C BC ####[facility] Oeoatisvuy0211 [place] [address]Dr. Airam Tripathi Lymphocytes/100 WBC (Bld) 15.5 % Critically low 20.5-60.0 [facility] Comment on above: Performed By: #### C BC ####[facility] Hmufqtzofn4038 [place] [address]Dr. Airam Tripathi MANUAL DIFF REQ NO Normal [facility] Comment on above: Performed By: #### C BC ####[facility] Cvjjdtixcn8560 [place] [address]Dr. Airam Tripathi MCH (RBC) [Entitic mass] 28.7 pg Normal 26.7-34.0 [facility] Comment on above: Performed By: #### C BC ####[facility] Oifawubkeb4278 [place] [address]Dr. Airam Tripathi MCHC (RBC) [Mass/Vol] 29.4 g/dL Critically low 29.9-35.2 [facility] Comment on above: Performed By: #### C BC ####[facility] Kdvasyfehh5581 [place] [address]Dr. Airam Tripathi MCV (RBC) [Entitic vol] 97.7 fL Normal 81.0-99.0 [facility] Comment on above: Performed By: #### C BC ####[facility] Splqxobbjk1529 [place] [address]Dr. Airam Tripathi MONO # 0.6 103/ul Normal 0.3-0.8 [facility] Comment on above: Performed By: #### C BC ####[facility] Uaacldfzxu4259 [place] [address]Dr. Airam Deuce Monocytes/100 WBC (Bld) 7.7 % Normal 1.7-12.0 [facility] Comment on above: Performed By: #### C BC ####[facility] Syqdrtsoyl0287 [place] [address]Dr. Airam Tripathi NEUT # 5.9 103/ul Normal 1.4-6.5 [facility] Comment on above: Performed By: #### C BC ####[facility] Tupdzwlcmm0341 [place] [address]Dr. Airam Tripathi Neutrophils/100 WBC (Bld) 74.2 % Normal 43.0-75.0 [facility] Comment on above: Performed By: #### C BC ####[facility] Kaicbmhfbf5709 [place] [address]Dr. Airam Tripathi Platelet mean volume (Bld) [Entitic vol] 9.4 fL Critically low 9.5-13.5 [facility] Comment on above: Performed By: #### C BC ####[facility] Fukimsnbut6253 [place] [address]Dr. Airam Tripathi PLT 331 103/ul Normal 150-450 [facility] Comment on above: Performed By: #### C BC ####[facility] Asdafvaosu0350 [place] [address]Dr. Airam Tripathi RBC 3.45 106/ul Critically low 4.20-5.40 [facility] Comment on above: Performed By: #### C BC ####[facility] Awzhjaixku4167 [place] [address]Dr. Airam Tripathi WBC 7.9 103/ul Normal 4.0-11.0 [facility] Comment on above: Performed By: #### C BC ####[facility] Frjusxzbtu4842 [place] [address]Dr. Selenaneil Tripathi PROF 14(COMP METB)on 023 Albumin [Mass/Vol] 3.4 g/dL Normal 3.4-5.0 [facility] Comment on above: Performed By: #### C MP ####[facility] Bcsiwsmntq9250 [place] [address]Dr. Airam Deuce Albumin/Globulin [Mass ratio] 1.1 {ratio} Normal [facility] Comment on above: Performed By: #### C MP ####[facility] Kauihcdlqi2783 [place] [address]Dr. Airam Tripathi ALP [Catalytic activity/Vol] 197 U/L Critically high 46-116 [facility] Comment on above: Performed By: #### C MP ####[facility] Erdcppcixj4738 [place] [address]Dr. Airam Tripathi ALT [Catalytic activity/Vol] 18 U/L Normal 14-59 [facility] Comment on above: Performed By: #### C MP ####[facility] Gukmmfegwg5242 [place] [address]Dr. Airam Tripathi Anion gap [Moles/Vol] 12.3 mmol/L Normal Th [facility] Comment on above: Performed By: #### C MP ####[facility] Oxcqykkkau85[address] [place] [address]Dr. Airam Tripathi AST [Catalytic activity/Vol] 26 U/L Normal 15-37 [facility] Comment on above: Performed By: #### C MP ####[facility] Tcabmchtcd0072 [place] [address]Dr. Airam Tripathi Bilirubin [Mass/Vol] 0.3 mg/dL Normal 0.2-1.0 [facility] Comment on above: Performed By: #### C MP ####[facility] Qpuocoaytn6182 [place] [address]Dr. Airam Tripathi Calcium [Mass/Vol] 8.6 mg/dL Normal 8.5-10.1 [facility] Comment on above: Performed By: #### C MP ####[facility] [facility] L[address]mffpokt[address] [place] [address]Dr. Airam Tripathi Chloride [Moles/Vol] 96 mmol/L Critically low 98-107 [facility] Comment on above: Performed By: #### C MP ####[facility] Wkltmmzupf17[address] [place] [address]Dr. Airam Deuce CO2 [Moles/Vol] 27.8 mmol/L Normal 21.0-32.0 [facility] Comment on above: Performed By: #### C MP ####[facility] Mfbwdxjwdo20[address] [place] [phone]. Airam Tripathi Creatinine [Mass/Vol] 1.55 mg/dL Critically high 0.55-1.02 [facility] Comment on above: Performed By: #### C MP ####[facility] Potojxaqcr30[address] [place] [phone]. Airam Tripathi EGFR-AF [place]IZ[place] 41 mL/min/1.73m2 Critically low >=60 [facility] Comment on above: Performed By: #### C MP ####[facility] Bjwejofytf15[address] [place] [address]Dr. Airam Tripathi EGFR-NON AF CITIZEN OF [place] 34 mL/min/1.73m2 Critically low >=60 [facility] Comment on above: Performed By: #### C MP ####[facility] Agqqtkywyi17[address] [place] [phone]. Airam Tripathi Globulin (S) [Mass/Vol] 3.2 g/dL Normal [facility] Comment on above: Performed By: #### C MP ####[facility] Pptbazyxwe6746 [place] [phone]. Airam Tripathi Glucose [Mass/Vol] 87 mg/dL Normal 74-106 [facility] Comment on above: Performed By: #### C MP ####[facility] Ubqbzxicgh01[address] [place] [address]Dr. Airam Tripathi Potassium [Moles/Vol] 5.1 mmol/L Normal 3.5-5.1 [facility] Comment on above: Performed By: #### C MP ####[facility] Ofohevvogw6[address] [place] [phone]. Airam Tripathi Protein [Mass/Vol] 6.6 g/dL Normal 6.4-8.2 [facility] Comment on above: Performed By: #### C MP ####[facility] Kldovldsmq6174 [place] [address]Dr. Airam Tripathi Sodium [Moles/Vol] 131 mmol/L Critically low 136-145 [facility] Comment on above: Performed By: #### C MP ####[facility] Vhdjqxxnnf2337 [place] [address]Dr. Airam Tripathi Urea nitrogen [Mass/Vol] 31.0 mg/dL Critically high 7.0-18.0 [facility] Comment on above: Performed By: #### C MP ####[facility] Hpqmwrleew[address] [place], [place] [address]Dr. Airam Tripathi Urea nitrogen/Creatinine [Mass ratio] 20.0 mg/mg Normal [facility] Comment on above: Performed By: #### C MP ####[facility] Ttexaocnay3[address] [place], [place] [address]Dr. Airam Tripathi OSMOLALITYon 07-02-2022 Osmolality [Osmolality] 281 mosm/kg Normal 275-295 [facility] Comment on above: Performed By: #### O SMO ####[facility] Jdnewyuqac8618[address] [place], [place] [address]Dr. Airam Tripathi CBC AUTO DIFFon 06-29-2022 BASO # 0.0 103/ul Normal 0.0-0.1 [facility] Comment on above: Performed By: #### C BC ####[facility] Axmnqrhgam52[address] [place], [place] [address]Dr. Airam Tripathi Basophils/100 WBC (Bld) 0.3 % Normal 0.2-2.0 [facility] Comment on above: Performed By: #### C BC ####[facility] Pfxzdaiqvl330234 [address] [place], [place] [address]Dr. Airam Tripathi EO # 0.2 103/ul Normal 0.0-0.7 [facility] Comment on above: Performed By: #### C BC ####[facility] Astfvwelfn763334 [address] [place], [place] [address]Dr. Airam Tripathi Eosinophils/100 WBC (Bld) 2.3 % Normal 0.9-7.0 [facility] Comment on above: Performed By: #### C BC ####[facility] Enincuzzvr654734 [address] [place], [place] [address]Dr. Airam Tripathi Erythrocyte distribution width (RBC) [Ratio] 13.2 % Normal 11.0-15.0 [facility] Comment on above: Performed By: #### C BC ####[facility] Gvjmxvbnjh40[address] [place] [address]Dr. Selenaneil Tripathi Hematocrit (Bld) [Volume fraction] 28.2 % Critically low 36.0-48.0 [facility] Comment on above: Performed By: #### C BC ####[facility] Geezfayuio47[address] [place] [address]Dr. Airam Tripathi Hemoglobin (Bld) [Mass/Vol] 9.1 g/dL Critically low 12.0-16.0 [facility] Comment on above: Performed By: #### C BC ####[facility] Wlsbhxujsq4286[address] [place], [place] [address]Dr. Airam Tripathi IG # 0.03 10e3/ul Normal 0.00-0.03 [facility] Comment on above: Performed By: #### C BC ####[facility] Fntrbsnzei010834 [address] [place], [place] [address]Dr. Airam Tripathi IG % 0.4 % Normal 0.0-0.5 [facility] Comment on above: Performed By: #### C BC ####[facility] Ndgqbhoywb0949[address] [place], [place] [address]Dr. Airam Tripathi LYMPH # 1.0 103/ul Critically low 1.2-3.8 [facility] Comment on above: Performed By: #### C BC ####[facility] Trwouiaynj038434 [address] [place], [place] [address]Dr. Airam Tripathi Lymphocytes/100 WBC (Bld) 12.8 % Critically low 20.5-60.0 [facility] Comment on above: Performed By: #### C BC ####[facility] Gjgzyzxssk0925[address] [place], [place] [address]Dr. Airam Tripathi MANUAL DIFF REQ NO Normal [facility] Comment on above: Performed By: #### C BC ####[facility] Uxgezrjlnf153334 [address] [place], [place] [address]Dr. Airam Tripathi MCH (RBC) [Entitic mass] 29.9 pg Normal 26.7-34.0 [facility] Comment on above: Performed By: #### C BC ####[facility] Wydqsyabol2720 [place] [phone]. Airam Tripathi MCHC (RBC) [Mass/Vol] 32.3 g/dL Normal 29.9-35.2 [facility] Comment on above: Performed By: #### C BC ####[facility] Zxollcxwnt1479 [place] [phone]. Airam Tripathi MCV (RBC) [Entitic vol] 92.8 fL Normal 81.0-99.0 [facility] Comment on above: Performed By: #### C BC ####[facility] Iubxevpdne[address] [place], [place] [id number]. Airam Tripathi MONO # 0.5 103/ul Normal 0.3-0.8 [facility] Comment on above: Performed By: #### C BC ####[facility] Eokylztbju877[address] [place], [place] [address]Dr. Airam Tripathi Monocytes/100 WBC (Bld) 6.0 % Normal 1.7-12.0 [facility] Comment on above: Performed By: #### C BC ####[facility] Yqrqpcxafd926934 [address] [place], [place] [address]Dr. Airam Tripathi NEUT # 6.0 103/ul Normal 1.4-6.5 [facility] Comment on above: Performed By: #### C BC ####[facility] Ebogwbybva197934 [address] [place], [place] [address]Dr. Airam Tripathi Neutrophils/100 WBC (Bld) 78.2 % Critically high 43.0-75.0 [facility] Comment on above: Performed By: #### C BC ####[facility] Jfjhoyywkc398[address] [place], [place] [address]Dr. Airam Tripathi Platelet mean volume (Bld) [Entitic vol] 9.0 fL Critically low 9.5-13.5 [facility] Comment on above: Performed By: #### C BC ####[facility] Ppgqcgxmwd168[address] [place], [place] [address]Dr. Airam Tripathi PLT 332 103/ul Normal 150-450 [facility] Comment on above: Performed By: #### C BC ####[facility] Dildmtofkh[address] [place] [phone]. Airam Tripathi RBC 3.04 106/ul Critically low 4.20-5.40 [facility] Comment on above: Performed By: #### C BC ####[facility] Muvuykuugc4977 [place] [phone]. Airam Tripathi WBC 7.7 103/ul Normal 4.0-11.0 [facility] Comment on above: Performed By: #### C BC ####[facility] Wcmhnumhhu55[address] [place] [address]Dr. Airam Tripathi PROF 14(COMP METB)on 023 Albumin [Mass/Vol] 3.2 g/dL Critically low 3.4-5.0 [facility] Comment on above: Performed By: #### C MP ####[facility] Uhiworgssk134[address] [place], [place] [address]Dr. Airam Tripathi Albumin/Globulin [Mass ratio] 0.9 {ratio} Normal [facility] Comment on above: Performed By: #### C MP ####[facility] Lrbudnfexr676[address] [place], [place] [address]Dr. Airam Tripathi ALP [Catalytic activity/Vol] 135 U/L Critically high 46-116 [facility] Comment on above: Performed By: #### C MP ####[facility] Ndztlaykqd5[address] [place] [address]Dr. Airam Tripathi ALT [Catalytic activity/Vol] 25 U/L Normal 14-59 [facility] Comment on above: Performed By: #### C MP ####[facility] Clytfhxref32[address] [place] [address]Dr. Airam Tripathi Anion gap [Moles/Vol] 9.1 mmol/L Normal [facility] Comment on above: Performed By: #### C MP ####[facility] Iqamslpmmc4[address] [place] [address]Dr. Airam Tripathi AST [Catalytic activity/Vol] 34 U/L Normal 15-37 [facility] Comment on above: Performed By: #### C MP ####[facility] Guloymxluv08[address] [place] [phone]. Airam Tripathi Bilirubin [Mass/Vol] 0.3 mg/dL Normal 0.2-1.0 [facility] Comment on above: Performed By: #### C MP ####[facility] Gwhizdehmu9030 [place] [phone]. Airam Tripathi Calcium [Mass/Vol] 8.6 mg/dL Normal 8.5-10.1 [facility] Comment on above: Performed By: #### C MP ####[facility] Ecvdsmhuiq6681 [place] [address]Dr. Airam Tripathi Chloride [Moles/Vol] 99 mmol/L Normal 98-107 [facility] Comment on above: Performed By: #### C MP ####[facility] Dfkxmjcnop9927 [place] [phone]. Airam Tripathi CO2 [Moles/Vol] 29.1 mmol/L Normal 21.0-32.0 [facility] Comment on above: Performed By: #### C MP ####[facility] Fickavmdri6146 [place] [phone]. Airam Tripathi Creatinine [Mass/Vol] 1.40 mg/dL Critically high 0.55-1.02 [facility] Comment on above: Performed By: #### C MP ####[facility] Xmzbptrskw0943 [place] [phone]. Airam Tripathi EGFR-AF [place]IZ[place] 46 mL/min/1.73m2 Critically low >=60 [facility] Comment on above: Performed By: #### C MP ####[facility] Tazsurbhic8928 [place] [phone]. Airam Tripathi EGFR-NON AF [place]IZ[place] 38 mL/min/1.73m2 Critically low >=60 [facility] Comment on above: Performed By: #### C MP ####[facility] Oorwcepcst023[address] [place], [place] [id number]. Airam Tripathi Globulin (S) [Mass/Vol] 3.4 g/dL Normal [facility] Comment on above: Performed By: #### C MP ####[facility] Ghjzjmdups2641 [place] [phone]. Airam Tripathi Glucose [Mass/Vol] 83 mg/dL Normal 74-106 [facility] Comment on above: Performed By: #### C MP ####[facility] Rtndtuobse87[address] [place], [place] [address]Dr. Airam Tripathi Potassium [Moles/Vol] 4.2 mmol/L Normal 3.5-5.1 [facility] Comment on above: Performed By: #### C MP ####[facility] Jaljqogoon1716[address] [place], [place] [address]Dr. Airam Tripathi Protein [Mass/Vol] 6.6 g/dL Normal 6.4-8.2 [facility] Comment on above: Performed By: #### C MP ####[facility] Kxvdverarr082634 [address] [place], [place] [address]Dr. Airam Tripathi Sodium [Moles/Vol] 133 mmol/L Critically low 136-145 [facility] Comment on above: Performed By: #### C MP ####[facility] Cypbxpzvmk725[address] [place], [place] [address]Dr. Airam Tripathi Urea nitrogen [Mass/Vol] 37.0 mg/dL Critically high 7.0-18.0 [facility] Comment on above: Performed By: #### C MP ####[facility] Lfsghqypvv794634 [address] [place], [place] [address]Dr. Airam Tripathi Urea nitrogen/Creatinine [Mass ratio] 26.4 mg/mg Normal [facility] Comment on above: Performed By: #### C MP ####[facility] Bdusyqsopx19023[address] [place], [place] [address]Dr. Airam Tripathi BNPon 06-18-2022 Natriuretic peptide B (Bld) [Mass/Vol] 5826.0 pg/mL Critically high <=900.0 [facility] Comment on above: Performed By: #### B FINISHED YARN EXAMINER, CMP ####[facility] Rxmyjtrbeg329834 [address] [place], [place] [address]Dr. Airam Tripathi CBC AUTO DIFFon 06-18-2022 BASO # 0.0 103/ul Normal 0.0-0.1 [facility] Comment on above: Performed By: #### C BC ####[facility] Yjtolawcgx6442 [place] [address]Dr. Airam Deuce Basophils/100 WBC (Bld) 0.4 % Normal 0.2-2.0 [facility] Comment on above: Performed By: #### C BC ####[facility] Iikgalhmtj788[address] [place], [place] [address]Dr. Airam Tripathi EO # 0.1 103/ul Normal 0.0-0.7 [facility] Comment on above: Performed By: #### C BC ####[facility] Nfkznkouqq853334 [address] [place], [place] [address]Dr. Airam Tripathi Eosinophils/100 WBC (Bld) 1.3 % Normal 0.9-7.0 [facility] Comment on above: Performed By: #### C BC ####[facility] Hoezxieesn569934 [address] [place], [place] [address]Dr. Airam Tripathi Erythrocyte distribution width (RBC) [Ratio] 13.4 % Normal 11.0-15.0 [facility] Comment on above: Performed By: #### C BC ####[facility] Msowrvnkej683434 [address] [place], [place] [address]Dr. Airam Deuce Hematocrit (Bld) [Volume fraction] 27.3 % Critically low 36.0-48.0 [facility] Comment on above: Performed By: #### C BC ####[facility] Vvtxfputhy962034 [address] [place], [place] [address]Dr. Airam Deuce Hemoglobin (Bld) [Mass/Vol] 8.6 g/dL Critically low 12.0-16.0 [facility] Comment on above: Performed By: #### C BC ####[facility] Gffixzpvgf971334 [address] [place], [place] [address]Dr. Airam Tripathi IG # 0.08 10e3/ul Critically high 0.00-0.03 [facility] Comment on above: Performed By: #### C BC ####[facility] Zmesujauiz220[address] [place], [place] [address]Dr. Airam Tripathi IG % 0.8 % Critically high 0.0-0.5 [facility] Comment on above: Performed By: #### C BC ####[facility] Gvddicfslr5827 [place] [address]DrKianna Selenaneil Trpiathi LYMPH # 1.9 103/ul Normal 1.2-3.8 [facility] Comment on above: Performed By: #### C BC ####[facility] Kngotsfshb5876 [place] [address]DrKianna Tripathi Lymphocytes/100 WBC (Bld) 19.3 % Critically low 20.5-60.0 [facility] Comment on above: Performed By: #### C BC ####[facility] Wyovxzqrsp473534 [address] [place], [place] [address]DrKianna Tripathi MANUAL DIFF REQ NO Normal [facility] Comment on above: Performed By: #### C BC ####[facility] Ckebxeeqed811534 [address] [place], [place] [address]DrKianna Tripathi MCH (RBC) [Entitic mass] 29.6 pg Normal 26.7-34.0 [facility] Comment on above: Performed By: #### C BC ####[facility] Wrqxfamesf326734 [address] [place], [place] [address]Dr. Airam Deuce MCHC (RBC) [Mass/Vol] 31.5 g/dL Normal 29.9-35.2 [facility] Comment on above: Performed By: #### C BC ####[facility] Fymrkvaqzw7784[address] [place], [place] [address]DrKianna Tripathi MCV (RBC) [Entitic vol] 93.8 fL Normal 81.0-99.0 [facility] Comment on above: Performed By: #### C BC ####[facility] Skdccofidd139[address] [place], [place] [address]DrKianna Tripathi MONO # 0.6 103/ul Normal 0.3-0.8 [facility] Comment on above: Performed By: #### C BC ####[facility] Kvkhvwecoj7313[address] [place], [place] [address]DrKianna Tripathi Monocytes/100 WBC (Bld) 6.5 % Normal 1.7-12.0 [facility] Comment on above: Performed By: #### C BC ####[facility] Gnbysebghx0601 [place] [address]DrKianna Tripathi NEUT # 6.9 103/ul Critically high 1.4-6.5 [facility] Comment on above: Performed By: #### C BC ####[facility] Xwgqdltetb9901 [place] [address]DrKianna Tripathi Neutrophils/100 WBC (Bld) 71.7 % Normal 43.0-75.0 [facility] Comment on above: Performed By: #### C BC ####[facility] Ncvyggbtau9436 [place] [address]DrKianna Tripathi Platelet mean volume (Bld) [Entitic vol] 8.5 fL Critically low 9.5-13.5 [facility] Comment on above: Performed By: #### C BC ####[facility] Lelcklcplh173[address] [place], [place] [address]DrKianna Tripathi PLT 295 103/ul Normal 150-450 [facility] Comment on above: Performed By: #### C BC ####[facility] Yrvbprston6416[address] [place], [place] [address]DrKianna Tripathi RBC 2.91 106/ul Critically low 4.20-5.40 [facility] Comment on above: Performed By: #### C BC ####[facility] Anuhkmvzab74[address] [place], [place] [address]DrKianna Tripathi WBC 9.7 103/ul Normal 4.0-11.0 [facility] Comment on above: Performed By: #### C BC ####[facility] Mjpkjivlhm6377 [place] [address]DrKianna Tripathi PROF 14(COMP METB)on 022 Albumin [Mass/Vol] 2.8 g/dL Critically low 3.4-5.0 [facility] Comment on above: Performed By: #### B FINISHED YARN EXAMINER, CMP ####[facility] Wabtxrhwce2487[address] [place], [place] [address]DrKianna Tripathi Albumin/Globulin [Mass ratio] 0.9 {ratio} Normal [facility] Comment on above: Performed By: #### B FINISHED YARN EXAMINER, CMP ####[facility] Udsckgqxrb0888 [place] [address]Dr. Airam Tripathi ALP [Catalytic activity/Vol] 125 U/L Critically high 46-116 [facility] Comment on above: Performed By: #### B FINISHED YARN EXAMINER, CMP ####[facility] Ynvyjqwixy9352 [place] [address]Dr. Airam Tripathi ALT [Catalytic activity/Vol] 16 U/L Normal 14-59 [facility] Comment on above: Performed By: #### B FINISHED YARN EXAMINER, CMP ####[facility] Tdrxzbyzqb639534 [address] [place], [place] [address]Dr. Airam Tripathi Anion gap [Moles/Vol] 11.4 mmol/L Normal [facility] Comment on above: Performed By: #### B FINISHED YARN EXAMINER, CMP ####[facility] Xoijcgcyuj086334 [address] [place], [place] [address]Dr. Airam Tripathi AST [Catalytic activity/Vol] 23 U/L Normal 15-37 [facility] Comment on above: Performed By: #### B FINISHED YARN EXAMINER, CMP ####[facility] Zrvfprfhuv390634 [address] [place], [place] [address]Dr. Airam Tripathi Bilirubin [Mass/Vol] 0.2 mg/dL Normal 0.2-1.0 [facility] Comment on above: Performed By: #### B FINISHED YARN EXAMINER, CMP ####[facility] Snagxcwwoi[address] [place] [address]Dr. Airam Tripathi Calcium [Mass/Vol] 8.1 mg/dL Critically low 8.5-10.1 [facility] Comment on above: Performed By: #### B FINISHED YARN EXAMINER, CMP ####[facility] Xwmdpratuo287734 [address] [place], [place] [address]Dr. Airam Tripathi Chloride [Moles/Vol] 96 mmol/L Critically low 98-107 [facility] Comment on above: Performed By: #### B FINISHED YARN EXAMINER, CMP ####[facility] Rbwxhqaklu996034 [address] [place], [place] [address]Dr. Airam Tripathi CO2 [Moles/Vol] 26.6 mmol/L Normal 21.0-32.0 [facility] Comment on above: Performed By: #### B FINISHED YARN EXAMINER, CMP ####[facility] Ledpvuxnyj1472 [place] [address]Dr. Airam Tripathi Creatinine [Mass/Vol] 1.31 mg/dL Critically high 0.55-1.02 [facility] Comment on above: Performed By: #### B FINISHED YARN EXAMINER, CMP ####[facility] Mnqfobmfrg546[address] [place], [place] [address]Dr. Airam Tripathi EGFR-AF [place]IZ[place] 50 mL/min/1.73m2 Critically low >=60 [facility] Comment on above: Performed By: #### B FINISHED YARN EXAMINER, CMP ####[facility] Hwderravsl843[address] [place], [place] [address]Dr. Airam Tripathi EGFR-NON AF CITIZEN [place] 41 mL/min/1.73m2 Critically low >=60 [facility] Comment on above: Performed By: #### B FINISHED YARN EXAMINER, CMP ####[facility] Wxswdtxtll6401[address] [place], [place] [address]Dr. Airam Tripathi Globulin (S) [Mass/Vol] 3.0 g/dL Normal [facility] Comment on above: Performed By: #### B FINISHED YARN EXAMINER, CMP ####[facility] Dejbhvkhko956734 [address] [place], [place] [address]Dr. Airam Tripathi Glucose [Mass/Vol] 82 mg/dL Normal 74-106 [facility] Comment on above: Performed By: #### B FINISHED YARN EXAMINER, CMP ####[facility] Zfkmrhcrkx645234 [address] [place], [place] [address]Dr. Airam Tripathi Potassium [Moles/Vol] 4.0 mmol/L Normal 3.5-5.1 [facility] Comment on above: Performed By: #### B FINISHED YARN EXAMINER, CMP ####[facility] Fefsinszob215734 [address] [place], [place] [address]Dr. Airam Tripathi Protein [Mass/Vol] 5.8 g/dL Critically low 6.4-8.2 [facility] Comment on above: Performed By: #### B FINISHED YARN EXAMINER, CMP ####[facility] Nxrclzmwqu4707[address] [place], [place] [address]Dr. Airam Tripathi Sodium [Moles/Vol] 130 mmol/L Critically low 136-145 [facility] Comment on above: Performed By: #### B FINISHED YARN EXAMINER, CMP ####[facility] Hojrpwwtwk4668[address] [place], [place] [address]Dr. Airam Deuce Urea nitrogen [Mass/Vol] 19.0 mg/dL Critically high 7.0-18.0 [facility] Comment on above: Performed By: #### B FINISHED YARN EXAMINER, CMP ####[facility] Fifdzpvhqv9510[address] [place], [place] [address]Dr. Airam Tripathi Urea nitrogen/Creatinine [Mass ratio] 14.5 mg/mg Normal [facility] Comment on above: Performed By: #### B FINISHED YARN EXAMINER, CMP ####[facility] Ijsrrphnae2760[address] [place], [place] [address]Dr. Airam Deuce BNPon 06-17-2022 Natriuretic peptide B (Bld) [Mass/Vol] 2510.0 pg/mL Critically high <=900.0 [facility] Comment on above: Performed By: #### B FINISHED YARN EXAMINER, CMP ####[facility] Gahgagfuei8[address] [place], [place] [address]Dr. Selenaneil Deuce CBC AUTO DIFFon 06-17-2022 BASO # 0.0 103/ul Normal 0.0-0.1 [facility] Comment on above: Performed By: #### C BC ####[facility] Gewxkhsekw782[address] [place], [place] [address]Dr. Airam Tripathi Basophils/100 WBC (Bld) 0.4 % Normal 0.2-2.0 [facility] [facility] Comment on above: Performed By: #### C BC ####[facility] Oxyhpxearz65[address] [place], [place] [address]Dr. Airam Tripathi EO # 0.0 103/ul Normal 0.0-0.7 [facility] Comment on above: Performed By: #### C BC ####[facility] Tciwatprzx8078[address] [place], [place] [address]Dr. Airam Tripathi Eosinophils/100 WBC (Bld) 0.3 % Critically low 0.9-7.0 [facility] Comment on above: Performed By: #### C BC ####[facility] Kgpiiyaery8711[address] [place], [place] [address]DrKianna Tripathi Erythrocyte distribution width (RBC) [Ratio] 13.6 % Normal 11.0-15.0 [facility] Comment on above: Performed By: #### C BC ####[facility] Fiiadiikmi7399[address] [place], [place] [address]DrKianna Tripathi Hematocrit (Bld) [Volume fraction] 28.9 % Critically low 36.0-48.0 [facility] Comment on above: Performed By: #### C BC ####[facility] Spuqrfclnf7087[address] [place], [place] [address]DrKianna Tripathi Hemoglobin (Bld) [Mass/Vol] 8.9 g/dL Critically low 12.0-16.0 [facility] Comment on above: Performed By: #### C BC ####[facility] Yhvoepfcmy2777[address] [place], [place] [address]Dr. Airam Tripathi IG # 0.10 10e3/ul Critically high 0.00-0.03 [facility] Comment on above: Performed By: #### C BC ####[facility] Grmsmufaso504234 [address] [place], [place] [address]Dr. Airam Tripathi IG % 1.3 % Critically high 0.0-0.5 [facility] Comment on above: Performed By: #### C BC ####[facility] Alnlkypjir166[address] [place], [place] [address]DrKianna Tripathi LYMPH # 0.7 103/ul Critically low 1.2-3.8 [facility] Comment on above: Performed By: #### C BC ####[facility] Beqxaqgahx3249[address] [place], [place] [address]DrKianna Tripathi Lymphocytes/100 WBC (Bld) 8.1 % Critically low 20.5-60.0 [facility] Comment on above: Performed By: #### C BC ####[facility] Rbgkrbqtxd[address] [place], [place] [address]DrKianna Tripathi MANUAL DIFF REQ NO Normal [facility] Comment on above: Performed By: #### C BC ####[facility] [address] [place] [address]DrKianna Tripathi MCH (RBC) [Entitic mass] 29.4 pg Normal 26.7-34.0 [facility] Comment on above: Performed By: #### C BC ####[facility] Xphoqrakqt[address] [place] [address]DrKianna Tripathi MCHC (RBC) [Mass/Vol] 30.8 g/dL Normal 29.9-35.2 [facility] Comment on above: Performed By: #### C BC ####[facility] Ywiutywfat645[address] [place], [place] [address]DrKianna Tripathi MCV (RBC) [Entitic vol] 95.4 fL Normal 81.0-99.0 [facility] Comment on above: Performed By: #### C BC ####[facility] Xbxyirtkch1077[address] [place], [place] [address]DrKianna Tripathi MONO # 0.3 103/ul Normal 0.3-0.8 [facility] Comment on above: Performed By: #### C BC ####[facility] Rwxeolxmgx5439[address] [place], [place] [address]DrKianna Tripathi Monocytes/100 WBC (Bld) 3.1 % Normal 1.7-12.0 [facility] Comment on above: Performed By: #### C BC ####[facility] Pffurbrvml3839[address] [place], [place] [address]DrKianna Tripathi NEUT # 7.0 103/ul Critically high 1.4-6.5 [facility] Comment on above: Performed By: #### C BC ####[facility] Tftzuzdjgj6[address] [place], [place] [address]DrKianna Tripathi Neutrophils/100 WBC (Bld) 86.8 % Critically high 43.0-75.0 [facility] Comment on above: Performed By: #### C BC ####[facility] Ucwvubzshd9[address]34 [address] [place], [place] [address]DrKianna Tripathi Platelet mean volume (Bld) [Entitic vol] 8.3 fL Critically low 9.5-13.5 [facility] Comment on above: Performed By: #### C BC ####[facility] [address]jcri[address] [place] [address]Dr. Selenaneil Deuce PLT 279 103/ul Normal 150-450 [facility] Comment on above: Performed By: #### C BC ####[facility] Ktksy[address]vjh[address] [place] [address]Dr. Selenaneil Deuce RBC 3.03 106/ul Critically low 4.20-5.40 [facility] Comment on above: Performed By: #### C BC ####[facility] F[address]pljlxyjp6334 [place] [address]Dr. Airam Tripathi WBC 8.0 103/ul Normal 4.0-11.0 [facility] Comment on above: Performed By: #### C BC ####[facility] Xvbdjrcwww9019 [place] [address]DrKianna Tripathi PROF 14(COMP METB)on 022 Albumin [Mass/Vol] 2.8 g/dL Critically low 3.4-5.0 [facility] Comment on above: Performed By: #### B FINISHED YARN EXAMINER, CMP ####[facility] Fcywppuufo[address] [place] [address]Dr. Airam Tripathi Albumin/Globulin [Mass ratio] 0.9 {ratio} Normal [facility] Comment on above: Performed By: #### B FINISHED YARN EXAMINER, CMP ####[facility] Ocbugmjajw[address] [place] [address]Dr. Airam Tripathi ALP [Catalytic activity/Vol] 136 U/L Critically high 46-116 [facility] Comment on above: Performed By: #### B FINISHED YARN EXAMINER, CMP ####[facility] Tdnucbwscy[address] [place] [address]Dr. Airam Tripathi ALT [Catalytic activity/Vol] 17 U/L Normal 14-59 [facility] Comment on above: Performed By: #### B FINISHED YARN EXAMINER, CMP ####[facility] Ogcmrbawjj263[address] [place], [place] [address]Dr. Airam Tripathi Anion gap [Moles/Vol] 12.9 mmol/L Normal Th [facility] Comment on above: Performed By: #### B FINISHED YARN EXAMINER, CMP ####[facility] Blomfhxacm942534 [address] [place], [place] [address]Dr. Airam Tripathi AST [Catalytic activity/Vol] 24 U/L Normal 15-37 [facility] Comment on above: Performed By: #### B FINISHED YARN EXAMINER, CMP ####[facility] Spwvgdlefz666634 [address] [place], [place] [address]Dr. Airam Tripathi Bilirubin [Mass/Vol] 0.2 mg/dL Normal 0.2-1.0 [facility] Comment on above: Performed By: #### B FINISHED YARN EXAMINER, CMP ####[facility] Mzagrjtjho642334 [address] [place], [place] [address]Dr. Airam Tripathi Calcium [Mass/Vol] 8.7 mg/dL Normal 8.5-10.1 [facility] Comment on above: Performed By: #### B FINISHED YARN EXAMINER, CMP ####[facility] Lafzyekbab684934 [address] [place], [place] [address]Dr. Airam Tripathi Chloride [Moles/Vol] 102 mmol/L Normal 98-107 [facility] Comment on above: Performed By: #### B FINISHED YARN EXAMINER, CMP ####[facility] Rjbihblwen019234 [address] [place], [place] [address]Dr. Airam Tripathi CO2 [Moles/Vol] 23.8 mmol/L Normal 21.0-32.0 [facility] Comment on above: Performed By: #### B FINISHED YARN EXAMINER, CMP ####[facility] Uftczpmxat008034 [address] [place], [place] [address]Dr. Airam Deuce Creatinine [Mass/Vol] 1.08 mg/dL Critically high 0.55-1.02 [facility] Comment on above: Performed By: #### B FINISHED YARN EXAMINER, CMP ####[facility] Lxzoignnay430934 [address] [place], [place] [address]Dr. Airam Deuce EGFR-AF CITIZEN [place] >60 Normal >=60 [facility] Comment on above: Performed By: #### B FINISHED YARN EXAMINER, CMP ####[facility] X[address]ksddn39[address] [place] [address]Dr. Airam Tripathi EGFR-NON AF CITIZEN OF [place] 52 mL/min/1.73m2 Critically low >=60 [facility] Comment on above: Performed By: #### B FINISHED YARN EXAMINER, CMP ####[facility] Sulkibfepw94[address] [place], [place] [address]Dr. Airam Tripathi Globulin (S) [Mass/Vol] 3.2 g/dL Normal [facility] Comment on above: Performed By: #### B FINISHED YARN EXAMINER, CMP ####[facility] Cyjnivvgzk579434 [address] [place], [place] [address]Dr. Airam Tripathi Glucose [Mass/Vol] 99 mg/dL Normal 74-106 [facility] Comment on above: Performed By: #### B FINISHED YARN EXAMINER, CMP ####[facility] Btwlnclnup492334 [address] [place], [place] [address]Dr. Airam Tripathi Potassium [Moles/Vol] 4.7 mmol/L Normal 3.5-5.1 [facility] Comment on above: Performed By: #### B FINISHED YARN EXAMINER, CMP ####[facility] Wgdrveyosq180034 [address] [place], [place] [address]Dr. Airam Tripathi Protein [Mass/Vol] 6.0 g/dL Critically low 6.4-8.2 [facility] Comment on above: Performed By: #### B FINISHED YARN EXAMINER, CMP ####[facility] Thpssvlotq603634 [address] [place], [place] [address]Dr. Airam Tripathi Sodium [Moles/Vol] 134 mmol/L Critically low 136-145 [facility] Comment on above: Performed By: #### B FINISHED YARN EXAMINER, CMP ####[facility] Kicrpdwawr0123[address] [place], [place] [address]Dr. Airam Tripathi Urea nitrogen [Mass/Vol] 19.0 mg/dL Critically high 7.0-18.0 [facility] Comment on above: Performed By: #### B FINISHED YARN EXAMINER, CMP ####[facility] Ygaiopnlym145534 [address] [place], [place] [address]Dr. Airam Tripathi Urea nitrogen/Creatinine [Mass ratio] 17.6 mg/mg Normal [facility] Comment on above: Performed By: #### B FINISHED YARN EXAMINER, CMP ####[facility] Pqvlmqlcdj3528[address] [place], [place] [address]Dr. Airam Tripathi PROTIMEon 06-17-2022 INR Coag (PPP) [Relative time] 1.00 {INR} Normal [facility] Comment on above: Performed By: #### P T ####[facility] Byobrhkdbx728534 [address] [place], [place] [address]Dr. Airam Tripathi INR GUIDELINES SEE BELOW Normal [facility] Comment on above: Result Comment: SIDRA RED INR: 2.0 - 3.0 CONDITIONS NOT LISTED BELOW 2.5 - 3.5 FOR PROSTHETIC HEART VALVE REPLACEMENT 2.5 - 3.5 RECURRENT THROMBOSIS Performed By: #### P T ####[facility] Xqvdphkhgy7824[address] [place], [place] [address]Dr. Airam Tripathi PT Coag (PPP) [Time] 10.8 s Normal 9.0-11.6 [facility] Comment on above: Performed By: #### P T ####[facility] Ohskorntwc556[address] [place], [place] [address]Dr. Selenaneil Tripathi PTTon 06-17-2022 aPTT Coag (Bld) [Time] 27.2 s Normal 22.3-36.2 [facility] Comment on above: Performed By: #### P TT ####[facility] Bqfnvdwaxt781334 [address] [place], [place] [address]Dr. Selenaneil Tripathi BNPon 06-16-2022 Natriuretic peptide B (Bld) [Mass/Vol] 2293.0 pg/mL Critically high <=900.0 [facility] Comment on above: Performed By: #### C MP, BNP ####[facility] Stqslxyuqf9686[address] [place], [place] [address]Dr. Airam Tripathi CBC AUTO DIFFon 06-16-2022 BASO # 0.0 103/ul Normal 0.0-0.1 [facility] Comment on above: Performed By: #### C BC ####[facility] Dkuiwtntbk385234 [address] [place], [place] [address]Dr. Airam Tripathi Basophils/100 WBC (Bld) 0.4 % Normal 0.2-2.0 [facility] Comment on above: Performed By: #### C BC ####[facility] Avwzfbmbwk[address] [place] [address]Dr. Airam Tripathi EO # 0.2 103/ul Normal 0.0-0.7 [facility] Comment on above: Performed By: #### C BC ####[facility] Chnaspbnkq2487[address] [place], [place] [address]DrKianna Airam Tripathi Eosinophils/100 WBC (Bld) 3.0 % Normal 0.9-7.0 [facility] Comment on above: Performed By: #### C BC ####[facility] Msvcewmnlg883334 [address] [place], [place] [address]Dr. Airam Tripathi Erythrocyte distribution width (RBC) [Ratio] 13.3 % Normal 11.0-15.0 [facility] Comment on above: Performed By: #### C BC ####[facility] Oxdylltuzw727934 [address] [place], [place] [address]Dr. Airam Tripathi Hematocrit (Bld) [Volume fraction] 26.2 % Critically low 36.0-48.0 [facility] Comment on above: Performed By: #### C BC ####[facility] Zquopuwhiv554034 [address] [place], [place] [address]Dr. Airam Tripathi Hemoglobin (Bld) [Mass/Vol] 8.3 g/dL Critically low 12.0-16.0 [facility] Comment on above: Performed By: #### C BC ####[facility] Klmgnkmigv510034 [address] [place], [place] [address]Dr. Airam Tripathi IG # 0.08 10e3/ul Critically high 0.00-0.03 [facility] Comment on above: Performed By: #### C BC ####[facility] Gjwtajwumy0726[address] [place], [place] [address]Dr. Selenaneil Tripathi IG % 1.1 % Critically high 0.0-0.5 [facility] Comment on above: Performed By: #### C BC ####[facility] Cebtwvqooo7966[address] [place], [place] [address]DrKianna Tripathi LYMPH # 1.2 103/ul Normal 1.2-3.8 [facility] Comment on above: Performed By: #### C BC ####[facility] Dtvfxufjfi[address] [place] [address]Dr. Airam Tripathi Lymphocytes/100 WBC (Bld) 17.3 % Critically low 20.5-60.0 [facility] Comment on above: Performed By: #### C BC ####[facility] Wspyyaywpa8135 [place] [address]DrKianna Tripathi MANUAL DIFF REQ NO Normal [facility] Comment on above: Performed By: #### C BC ####[facility] N[address]ouhuvml8326 [place] [address]Dr. Airam Tripathi MCH (RBC) [Entitic mass] 30.3 pg Normal 26.7-34.0 [facility] Comment on above: Performed By: #### C BC ####[facility] Dxvtfwgqxx438034 [address] [place], [place] [address]Dr. Airam Tripathi MCHC (RBC) [Mass/Vol] 31.7 g/dL Normal 29.9-35.2 [facility] Comment on above: Performed By: #### C BC ####[facility] Bikhqkefnq305434 [address] [place], [place] [address]DrKianna Tripathi MCV (RBC) [Entitic vol] 95.6 fL Normal 81.0-99.0 [facility] Comment on above: Performed By: #### C BC ####[facility] Cwwrphydsn0810[address] [place], [place] [address]Dr. Airam Tripathi MONO # 0.5 103/ul Normal 0.3-0.8 [facility] Comment on above: Performed By: #### C BC ####[facility] Hwafzqrfix[address] [place], [place] [address]DrKianna Tripathi Monocytes/100 WBC (Bld) 7.1 % Normal 1.7-12.0 [facility] Comment on above: Performed By: #### C BC ####[facility] Ndqmfpoheh9570[address] [place], [place] [address]DrKianna Tripathi NEUT # 5.0 103/ul Normal 1.4-6.5 [facility] Comment on above: Performed By: #### C BC ####[facility] Rwcbnbyyri9[address] [place] [address]Dr. Airam Tripathi Neutrophils/100 WBC (Bld) 71.1 % Normal 43.0-75.0 [facility] Comment on above: Performed By: #### C BC ####[facility] Lzjwoahixy34[address] [place] [address]Dr. Airam Tripathi Platelet mean volume (Bld) [Entitic vol] 8.2 fL Critically low 9.5-13.5 [facility] Comment on above: Performed By: #### C BC ####[facility] Kvhohjmrmw2522 [place] [address]Dr. Airam Tripathi PLT 247 103/ul Normal 150-450 [facility] Comment on above: Performed By: #### C BC ####[facility] Etdcvyoioq8645[address] [place], [place] [address]Dr. Airam Tripathi RBC 2.74 106/ul Critically low 4.20-5.40 [facility] Comment on above: Performed By: #### C BC ####[facility] Ciqfxezgwt515634 [address] [place], [place] [address]Dr. Airam Tripathi WBC 7.1 103/ul Normal 4.0-11.0 [facility] Comment on above: Performed By: #### C BC ####[facility] Gsmgqsnoqk508234 [address] [place], [place] [address]Dr. Airam Tripathi CTA CHEST WO W CONon 022 CTA CHEST WO W CON Normal [facility] PROF 14(COMP METB)on 022 Albumin [Mass/Vol] 2.6 g/dL Critically low 3.4-5.0 Th [facility] Comment on above: Performed By: #### C MP, BNP ####[facility] Tgkxxuqzhm269034 [address] [place], [place] [address]Dr. Airam Tripathi Albumin/Globulin [Mass ratio] 0.8 {ratio} Normal [facility] Comment on above: Performed By: #### C MP, BNP ####[facility] [address]bpchty[address] [place] [address]Dr. Airam Tripathi ALP [Catalytic activity/Vol] 130 U/L Critically high 46-116 [facility] Comment on above: Performed By: #### C MP, BNP ####[facility] Tsxesunvwi5565[address] [place], [place] [address]Dr. Airam Tripathi ALT [Catalytic activity/Vol] 12 U/L Critically low 14-59 [facility] Comment on above: Performed By: #### C MP, BNP ####[facility] Gbzqfesadh6687[address] [place], [place] [address]Dr. Airam Tripathi Anion gap [Moles/Vol] 11.8 mmol/L Normal [facility] Comment on above: Performed By: #### C MP, BNP ####[facility] Bqatzizdah5337[address] [place], [place] [address]Dr. Airam Tripathi AST [Catalytic activity/Vol] 22 U/L Normal 15-37 [facility] Comment on above: Performed By: #### C MP, BNP ####[facility] Mxlmlepskl8135[address] [place], [place] [address]Dr. Airam Tripathi Bilirubin [Mass/Vol] 0.2 mg/dL Normal 0.2-1.0 [facility] Comment on above: Performed By: #### C MP, BNP ####[facility] Xcbyacoumy3996[address] [place], [place] [address]Dr. Airam Tripathi Calcium [Mass/Vol] 8.0 mg/dL Critically low 8.5-10.1 [facility] Comment on above: Performed By: #### C MP, BNP ####[facility] Cvozkwplly1536[address] [place], [place] [address]Dr. Airam Tripathi Chloride [Moles/Vol] 104 mmol/L Normal 98-107 [facility] Comment on above: Performed By: #### C MP, BNP ####[facility] Lxaqmzbacc6[address] [place], [place] [address]Dr. Airam Tripathi CO2 [Moles/Vol] 22.8 mmol/L Normal 21.0-32.0 [facility] Comment on above: Performed By: #### C MP, BNP ####[facility] [address] [place] [phone]. Airam Tripathi Creatinine [Mass/Vol] 1.07 mg/dL Critically high 0.55-1.02 [facility] Comment on above: Performed By: #### C MP, BNP ####[facility] Iebnovkamx9[address] [place] [address]Dr. Airam Tripathi EGFR-AF [place]IZ[place] >60 Normal >=60 [facility] Comment on above: Performed By: #### C MP, BNP ####[facility] [address]udaphazvb52[address] [place] [address]Dr. Airam Tripathi EGFR-NON AF CITIZEN OF [place] 52 mL/min/1.73m2 Critically low >=60 [facility] Comment on above: Performed By: #### C MP, BNP ####[facility] Torpcmsend47[address] [place] [address]Dr. Airam Tripathi Globulin (S) [Mass/Vol] 3.1 g/dL Normal [facility] Comment on above: Performed By: #### C MP, BNP ####[facility] Oginzdvucc9[address] [place] [address]Dr. Airam Tripathi Glucose [Mass/Vol] 85 mg/dL Normal 74-106 [facility] Comment on above: Performed By: #### C MP, BNP ####[facility] Pchtxnsows5678 [place] [address]Dr. Airam Tripathi Potassium [Moles/Vol] 4.6 mmol/L Normal 3.5-5.1 [facility] Comment on above: Performed By: #### C MP, BNP ####[facility] Afmjiqjtmr4213 [place] [address]Dr. Airam Tripathi Protein [Mass/Vol] 5.7 g/dL Critically low 6.4-8.2 [facility] Comment on above: Performed By: #### C MP, BNP ####[facility] Hxgmzzsiah2325 [place] [address]Dr. Airam Tripathi Sodium [Moles/Vol] 134 mmol/L Critically low 136-145 [facility] Comment on above: Performed By: #### C MP, BNP ####[facility] Edcgzwmath1811[address] [place], [place] [address]Dr. Airam Tripathi Urea nitrogen [Mass/Vol] 24.0 mg/dL Critically high 7.0-18.0 [facility] Comment on above: Performed By: #### C MP, BNP ####[facility] Qjqfuzbupl302534 [address] [place], [place] [address]Dr. Airam Deuce Urea nitrogen/Creatinine [Mass ratio] 22.4 mg/mg Normal [facility] Comment on above: Performed By: #### C MP, BNP ####[facility] Jdwyxaqtrc24[address] [place], [place] [address]Dr. Airam Tripathi BNPon 06-15-2022 Natriuretic peptide B (Bld) [Mass/Vol] 934.0 pg/mL Critically high <=900.0 [facility] Comment on above: Performed By: #### C MP, BNP ####[facility] Zdfyinjwer8330[address] [place], [place] [address]Dr. Airam Deuce CBC AUTO DIFFon 06-15-2022 BASO # 0.0 103/ul Normal 0.0-0.1 [facility] Comment on above: Performed By: #### C BC ####[facility] Rysrmfxgah5126[address] [place], [place] [address]Dr. Airam Tripathi Basophils/100 WBC (Bld) 0.2 % Normal 0.2-2.0 [facility] Comment on above: Performed By: #### C BC ####[facility] Jslxxibeaz3296[address] [place], [place] [address]Dr. Airam Tripathi EO # 0.1 103/ul Normal 0.0-0.7 [facility] Comment on above: Performed By: #### C BC ####[facility] Wvexrlvlij7774[address] [place], [place] [address]Dr. Airam Deuce Eosinophils/100 WBC (Bld) 2.1 % Normal 0.9-7.0 [facility] Comment on above: Performed By: #### C BC ####[facility] Uyjqagobzn1699[address] [place], [place] [address]Dr. Selenaneil Tripathi Erythrocyte distribution width (RBC) [Ratio] 12.9 % Normal 11.0-15.0 [facility] Comment on above: Performed By: #### C BC ####[facility] Ocqajqiwry64[address] [place] [address]Dr. Airam Tripathi Hematocrit (Bld) [Volume fraction] 24.9 % Critically low 36.0-48.0 [facility] Comment on above: Performed By: #### C BC ####[facility] Jubdzmescd7396[address] [place], [place] [address]Dr. eSlenaneil Tripathi Hemoglobin (Bld) [Mass/Vol] 7.9 g/dL Critically low 12.0-16.0 [facility] Comment on above: Performed By: #### C BC ####[facility] Eajgaejchj33[address] [place], [place] [address]Dr. Airam Tripathi IG # 0.05 10e3/ul Critically high 0.00-0.03 [facility] Comment on above: Performed By: #### C BC ####[facility] Ipaidgvuum[address] [place], [place] [address]Dr. Selenaneil Tripathi IG % 0.8 % Critically high 0.0-0.5 [facility] Comment on above: Performed By: #### C BC ####[facility] Nknqmbvvwl49[address] [place], [place] [address]DrKianna Tripathi LYMPH # 0.9 103/ul Critically low 1.2-3.8 [facility] Comment on above: Performed By: #### C BC ####[facility] Tepthchbuq45[address] [place], [place] [address]DrKianna Tripathi Lymphocytes/100 WBC (Bld) 13.7 % Critically low 20.5-60.0 [facility] Comment on above: Performed By: #### C BC ####[facility] Fznxegjkku9[address] [place], [place] [address]DrKianna Tripathi MANUAL DIFF REQ NO Normal [facility] Comment on above: Performed By: #### C BC ####[facility] Nbtmprirmf2128[address] [place], [place] [address]DrKianna Tripathi MCH (RBC) [Entitic mass] 30.2 pg Normal 26.7-34.0 [facility] Comment on above: Performed By: #### C BC ####[facility] [address] [place] [address]Dr. Airam Tripathi MCHC (RBC) [Mass/Vol] 31.7 g/dL Normal 29.9-35.2 [facility] Comment on above: Performed By: #### C BC ####[facility] Jcoznmqnon497[address] [place], [place] [address]Dr. Selenaneil Tripathi MCV (RBC) [Entitic vol] 95.0 fL Normal 81.0-99.0 [facility] Comment on above: Performed By: #### C BC ####[facility] Myworogget4[address] [place], [place] [address]Dr. Airam Tripathi MONO # 0.4 103/ul Normal 0.3-0.8 [facility] Comment on above: Performed By: #### C BC ####[facility] Sfnyqamxyk183[address] [place], [place] [address]Dr. Airam Tripathi Monocytes/100 WBC (Bld) 6.7 % Normal 1.7-12.0 [facility] Comment on above: Performed By: #### C BC ####[facility] Iykjwzbdgx0[address] [place], [place] [address]Dr. Selenaneil Deuce NEUT # 5.0 103/ul Normal 1.4-6.5 [facility] Comment on above: Performed By: #### C BC ####[facility] Dcfpbcivcp915[address] [place], [place] [address]Dr. Airam Tripathi Neutrophils/100 WBC (Bld) 76.5 % Critically high 43.0-75.0 [facility] Comment on above: Performed By: #### C BC ####[facility] Sxbdixsrxl0289[address] [place], [place] [address]Dr. Airam Tripathi Platelet mean volume (Bld) [Entitic vol] 8.4 fL Critically low 9.5-13.5 [facility] Comment on above: Performed By: #### C BC ####[facility] [address]cr[address] [place] [address]Dr. Airam Tripathi PLT 202 103/ul Normal 150-450 [facility] Comment on above: Performed By: #### C BC ####[facility] Piaqkvyxme2066[address] [place], [place] [address]Dr. Airam Tripathi RBC 2.62 106/ul Critically low 4.20-5.40 [facility] Comment on above: Performed By: #### C BC ####[facility] Qjrypxtuvl9275[address] [place], [place] [address]Dr. Airam Tripathi WBC 6.6 103/ul Normal 4.0-11.0 [facility] Comment on above: Performed By: #### C BC ####[facility] Jluowbeukc678534 [address] [place], [place] [address]Dr. Airam Deuce OSMOLALITYon 06-15-2022 Osmolality [Osmolality] 269 mosm/kg Critically low 275-295 [facility] Comment on above: Performed By: #### O SMO ####[facility] Ppvpttlzze737[address] [place], [place] [address]Dr. Selenaneil Tripathi PROF 14(COMP METB)on 022 Albumin [Mass/Vol] 2.5 g/dL Critically low 3.4-5.0 [facility] Comment on above: Performed By: #### C MP, BNP ####[facility] Btxjgkrgky384234 [address] [place], [place] [address]Dr. Selenaneil Tripathi Albumin/Globulin [Mass ratio] 0.9 {ratio} Normal [facility] Comment on above: Performed By: #### C MP, BNP ####[facility] Woxqjeootf011434 [address] [place], [place] [address]Dr. Airam Tripathi ALP [Catalytic activity/Vol] 128 U/L Critically high 46-116 [facility] Comment on above: Performed By: #### C MP, BNP ####[facility] Xttbxoqflc613034 [address] [place], [place] [address]Dr. Airam Tripathi ALT [Catalytic activity/Vol] 14 U/L Normal 14-59 [facility] Comment on above: Performed By: #### C MP, BNP ####[facility] [address]gtvdxsm[address] [place] [address]Dr. Airam Tripathi Anion gap [Moles/Vol] 10.4 mmol/L Normal [facility] Comment on above: Performed By: #### C MP, BNP ####[facility] Sockvqvtgq695634 [address] [place], [place] [address]Dr. Airam Tripathi AST [Catalytic activity/Vol] 23 U/L Normal 15-37 [facility] Comment on above: Performed By: #### C MP, BNP ####[facility] Znfzwmxriy955534 [address] [place], [place] [address]Dr. Airam Tripathi Bilirubin [Mass/Vol] 0.2 mg/dL Normal 0.2-1.0 [facility] Comment on above: Performed By: #### C MP, BNP ####[facility] Velbufgjcc688334 [address] [place], [place] [address]Dr. Airam Tripathi Calcium [Mass/Vol] 7.4 mg/dL Critically low 8.5-10.1 [facility] Comment on above: Performed By: #### C MP, BNP ####[facility] Ekgwjjmljw280734 [address] [place], [place] [address]Dr. Airam Tripathi Chloride [Moles/Vol] 99 mmol/L Normal 98-107 [facility] Comment on above: Performed By: #### C MP, BNP ####[facility] Tgijfqpefd231534 [address] [place], [place] [address]Dr. Airam Tripathi CO2 [Moles/Vol] 24.1 mmol/L Normal 21.0-32.0 [facility] Comment on above: Performed By: #### C MP, BNP ####[facility] Tjrnuyaiyw277034 [address] [place], [place] [address]Dr. Airam Tripathi Creatinine [Mass/Vol] 1.45 mg/dL Critically high 0.55-1.02 [facility] Comment on above: Performed By: #### C MP, BNP ####[facility] Vkjlhrctzq347934 [address] [place], [place] [address]Dr. Airam Tripathi EGFR-AF [place]IZ[place] 45 mL/min/1.73m2 Critically low >=60 [facility] Comment on above: Performed By: #### C MP, BNP ####[facility] [address] [place] [address]Dr. Airam Tripathi EGFR-NON AF CITIZEN OF [place] 37 mL/min/1.73m2 Critically low >=60 [facility] Comment on above: Performed By: #### C MP, BNP ####[facility] [address]ls[address] [place] [address]Dr. Airam Tripathi Globulin (S) [Mass/Vol] 2.8 g/dL Normal [facility] Comment on above: Performed By: #### C MP, BNP ####[facility] Lgjijormsc[address] [place] [address]Dr. Airam Tripathi Glucose [Mass/Vol] 82 mg/dL Normal 74-106 [facility] Comment on above: Performed By: #### C MP, BNP ####[facility] Qlfqozqilv439[address] [place], [place] [address]Dr. Airam Tripathi Potassium [Moles/Vol] 4.5 mmol/L Normal 3.5-5.1 [facility] Comment on above: Performed By: #### C MP, BNP ####[facility] Qbmvmknram283634 [address] [place], [place] [address]Dr. Airam Tripathi Protein [Mass/Vol] 5.3 g/dL Critically low 6.4-8.2 [facility] Comment on above: Performed By: #### C MP, BNP ####[facility] Switmppomt356[address] [place], [place] [address]Dr. Airam Tripathi Sodium [Moles/Vol] 129 mmol/L Critically low 136-145 [facility] Comment on above: Performed By: #### C MP, BNP ####[facility] Vhdnxvwcgk893134 [address] [place], [place] [address]Dr. Airam Tripathi Urea nitrogen [Mass/Vol] 35.0 mg/dL Critically high 7.0-18.0 [facility] Comment on above: Performed By: #### C MP, BNP ####[facility] Ggirwpebmp3157[address] [place], [place] [address]Dr. Airam Tripathi Urea nitrogen/Creatinine [Mass ratio] 24.1 mg/mg Normal [facility] Comment on above: Performed By: #### C MP, BNP ####[facility] Otjgujbylf3047[address] [place], [place] [address]Dr. Airam Tripathi T3, TOTAL (TRIIODOTHYRONINE) on 06-15-2022 T3, TOTAL 113 ng/dL Normal 71-180 [facility] Comment on above: Performed By: #### T 3TOTAL ####[facility] Gtqwrwaumm5486[address] [place], [place] [address]Dr. Airam Tripathi BNPon 06-14-2022 Natriuretic peptide B (Bld) [Mass/Vol] 1024.0 pg/mL Critically high <=900.0 [facility] Comment on above: Performed By: #### B FINISHED YARN EXAMINER, CMP ####[facility] Zbefqjulwg2089[address] [place], [place] [address]Dr. Airam Tripathi CARDIAC CONSUELO 3-6on 2 CK [Catalytic activity/Vol] 116 U/L Normal 26-192 [facility] Comment on above: Performed By: #### C MREP ####[facility] Esibibtqfu820534 [address] [place], [place] [address]Dr. Airam Tripathi CK.MB [Mass/Vol] ng/mL Normal <=3.60 [facility] Comment on above: Performed By: #### C MREP ####[facility] Hqiblxqmos314[address] [place], [place] [address]Dr. Airam Tripathi HSTROP 6.0 pg/mL Normal 4.0-51.3 [facility] Comment on above: Result Comment: CUT- OFF POINTS HAVE BEEN ESTABLISHED BASED ON THE FOURTH UNIVERSAL DEFINITIONS OF MYOCARDIALINFARCTION. THE UPPER REFERENCE LIMIT (URL) OF TROPONIN, DEFINED THE 99TH PERCENTILE OFcTnI DISTRIBUTION IN A REFERENCE POPULATION, HAS BEEN CONFIRMED THE DECISION THRESHOLDFOR AK DIAGNOSIS. Performed By: #### C MREP ####[facility] Dqhbxalhit932934 [address] [place], [place] [address]Dr. Airam Tripathi CBC AUTO DIFFon 06-14-2022 BASO # 0.0 103/ul Normal 0.0-0.1 [facility] Comment on above: Performed By: #### C BC ####[facility] [address] [place] [phone]. Airam Tripathi Basophils/100 WBC (Bld) 0.3 % Normal 0.2-2.0 [facility] Comment on above: Performed By: #### C BC ####[facility] [address]su[address] [place] [address]Dr. Airam Tripathi EO # 0.2 103/ul Normal 0.0-0.7 [facility] Comment on above: Performed By: #### C BC ####[facility] Nkolnlqpnl[address] [place], [place] [id number]. Airam Tripathi Eosinophils/100 WBC (Bld) 2.0 % Normal 0.9-7.0 [facility] Comment on above: Performed By: #### C BC ####[facility] Kqnuegzjvt9746[address] [place], [place] [address]Dr. Airam Tripathi Erythrocyte distribution width (RBC) [Ratio] 12.8 % Normal 11.0-15.0 [facility] Comment on above: Performed By: #### C BC ####[facility] Ffvwviphvu8267[address] [place], [place] [address]Dr. Airam Tripathi Hematocrit (Bld) [Volume fraction] 27.4 % Critically low 36.0-48.0 [facility] Comment on above: Performed By: #### C BC ####[facility] Gwjlkehvtn[address] [place], [place] [id number]. Airam Tripathi Hemoglobin (Bld) [Mass/Vol] 8.7 g/dL Critically low 12.0-16.0 [facility] Comment on above: Performed By: #### C BC ####[facility] Trcndmgjgf8945[address] [place], [place] [address]Dr. Airam Tripathi IG # 0.11 10e3/ul Critically high 0.00-0.03 [facility] Comment on above: Performed By: #### C BC ####[facility] Dtqsabglza6669[address] [place], [place] [address]Dr. Airam Tripathi IG % 1.1 % Critically high 0.0-0.5 [facility] Comment on above: Performed By: #### C BC ####[facility] [address] [place] [address]Dr. Airam Tripathi LYMPH # 0.9 103/ul Critically low 1.2-3.8 [facility] Comment on above: Performed By: #### C BC ####[facility] Nqvlrjuzue[address] [place] [address]Dr. Airam Tripathi Lymphocytes/100 WBC (Bld) 9.7 % Critically low 20.5-60.0 [facility] Comment on above: Performed By: #### C BC ####[facility] [address] [place] [address]Dr. Airam Tripathi MANUAL DIFF REQ NO Normal [facility] Comment on above: Performed By: #### C BC ####[facility] [address]vydxbsp[address] [place] [address]Dr. Airam Deuce MCH (RBC) [Entitic mass] 30.0 pg Normal 26.7-34.0 [facility] Comment on above: Performed By: #### C BC ####[facility] Jpo[address]qoqv[address] [place] [address]Dr. Airam Tripathi MCHC (RBC) [Mass/Vol] 31.8 g/dL Normal 29.9-35.2 [facility] Comment on above: Performed By: #### C BC ####[facility] [address]wlv[address] [place] [address]Dr. Airam Deuce MCV (RBC) [Entitic vol] 94.5 fL Normal 81.0-99.0 [facility] Comment on above: Performed By: #### C BC ####[facility] [address]vjmiwcvit110[address] [place] [phone]. Airam Tripathi MONO # 0.6 103/ul Normal 0.3-0.8 [facility] Comment on above: Performed By: #### C BC ####[facility] Nbmiwfysam[address] [place], [place] [address]Dr. Airam Deuce Monocytes/100 WBC (Bld) 5.7 % Normal 1.7-12.0 [facility] Comment on above: Performed By: #### C BC ####[facility] [address]wcun[address] [place] [address]Dr. Airam Tripathi NEUT # 7.8 103/ul Critically high 1.4-6.5 [facility] Comment on above: Performed By: #### C BC ####[facility] [address]mjqg[address] [place] [address]Dr. Airam Tripathi Neutrophils/100 WBC (Bld) 81.2 % Critically high 43.0-75.0 [facility] Comment on above: Performed By: #### C BC ####[facility] X[address]uajlepr[address] [place] [address]Dr. Airam Tripathi Platelet mean volume (Bld) [Entitic vol] 8.6 fL Critically low 9.5-13.5 [facility] Comment on above: Performed By: #### C BC ####[facility] [address]zelz[address] [place] [address]Dr. Airam Tripathi PLT 283 103/ul Normal 150-450 [facility] Comment on above: Performed By: #### C BC ####[facility] Pfywcjtfph[address] [place] [address]Dr. Airam Tripathi RBC 2.90 106/ul Critically low 4.20-5.40 [facility] Comment on above: Performed By: #### C BC ####[facility] Znpfwgphkw27[address] [place] [address]Dr. Airam Tripathi WBC 9.6 103/ul Normal 4.0-11.0 [facility] Comment on above: Performed By: #### C BC ####[facility] Clfhmzgsro[address] [place], [place] [id number]. Airam Tripathi OSMOLALITYon 06-14-2022 Osmolality [Osmolality] 273 mosm/kg Critically low 275-295 [facility] Comment on above: Performed By: #### O SMO ####[facility] Jmsgduuyfa6330[address] [place], [place] [address]Dr. Airam Deuce PROF 14(COMP METB)on 022 Albumin [Mass/Vol] 3.2 g/dL Critically low 3.4-5.0 [facility] Comment on above: Performed By: #### B FINISHED YARN EXAMINER, CMP ####[facility] We[address]vpxnhq4[address] [place] [phone]. Airam Tripathi Albumin/Globulin [Mass ratio] 1.0 {ratio} Normal [facility] Comment on above: Performed By: #### B FINISHED YARN EXAMINER, CMP ####[facility] Hlxujscows[address] [place] [phone]. Airam Tripathi ALP [Catalytic activity/Vol] 154 U/L Critically high 46-116 [facility] Comment on above: Performed By: #### B FINISHED YARN EXAMINER, CMP ####[facility] Scjbllzrjl2643 [place] [phone]. Airam Tripathi ALT [Catalytic activity/Vol] 17 U/L Normal 14-59 [facility] Comment on above: Performed By: #### B FINISHED YARN EXAMINER, CMP ####[facility] Izuwchlxvv6183 [place] [phone]. Airam Tripathi Anion gap [Moles/Vol] 12.0 mmol/L Normal [facility] Comment on above: Performed By: #### B FINISHED YARN EXAMINER, CMP ####[facility] [address]te[address] [place] [phone]. Airam Tripathi AST [Catalytic activity/Vol] 25 U/L Normal 15-37 [facility] Comment on above: Performed By: #### B FINISHED YARN EXAMINER, CMP ####[facility] Cs[address]akdnez[address] [place] [phone]. Airam Tripathi Bilirubin [Mass/Vol] 0.3 mg/dL Normal 0.2-1.0 [facility] Comment on above: Performed By: #### B FINISHED YARN EXAMINER, CMP ####[facility] Rojtuvpgyo[address] [place] [phone]. Airam Tripathi Calcium [Mass/Vol] 7.6 mg/dL Critically low 8.5-10.1 [facility] Comment on above: Performed By: #### B FINISHED YARN EXAMINER, CMP ####[facility] Mnxdcsopaq5975 [place] [phone]. Airam Tripathi Chloride [Moles/Vol] 92 mmol/L Critically low 98-107 [facility] Comment on above: Performed By: #### B FINISHED YARN EXAMINER, CMP ####[facility] Vazqvvalus37[address] [place], [place] [address]Dr. Selenaneil Deuce CO2 [Moles/Vol] 25.2 mmol/L Normal 21.0-32.0 [facility] Comment on above: Performed By: #### B FINISHED YARN EXAMINER, CMP ####[facility] Yvcpqayulc8313[address] [place], [place] [address]Dr. Airam Tripathi Creatinine [Mass/Vol] 1.83 mg/dL Critically high 0.55-1.02 [facility] Comment on above: Performed By: #### B FINISHED YARN EXAMINER, CMP ####[facility] Yycteeeyhy6513[address] [place], [place] [address]Dr. Airam Tripathi EGFR-AF [place]IZ[place] 34 mL/min/1.73m2 Critically low >=60 [facility] Comment on above: Performed By: #### B FINISHED YARN EXAMINER, CMP ####[facility] Qjkealuckk406[address] [place], [place] [address]Dr. Airam Tripathi EGFR-NON AF CITIZEN OF [place] 28 mL/min/1.73m2 Critically low >=60 [facility] Comment on above: Performed By: #### B FINISHED YARN EXAMINER, CMP ####[facility] Wfxfrazcgj513334 [address] [place], [place] [address]Dr. Airam Tripathi Globulin (S) [Mass/Vol] 3.1 g/dL Normal [facility] Comment on above: Performed By: #### B FINISHED YARN EXAMINER, CMP ####[facility] Nnioouhzry8494[address] [place], [place] [address]Dr. Airam Tripathi Glucose [Mass/Vol] 77 mg/dL Normal 74-106 [facility] Comment on above: Performed By: #### B FINISHED YARN EXAMINER, CMP ####[facility] Inijdqoizf097734 [address] [place], [place] [address]Dr. Airam Tripathi Potassium [Moles/Vol] 4.2 mmol/L Normal 3.5-5.1 [facility] Comment on above: Performed By: #### B FINISHED YARN EXAMINER, CMP ####[facility] Qhaskoybiy315634 [address] [place], [place] [address]Dr. Airam Tripathi Protein [Mass/Vol] 6.3 g/dL Critically low 6.4-8.2 [facility] Comment on above: Performed By: #### B FINISHED YARN EXAMINER, CMP ####[facility] Adprdvtyuv7798[address] [place], [place] [address]Dr. Airam Tripathi Sodium [Moles/Vol] 125 mmol/L Critically low 136-145 [facility] Comment on above: Performed By: #### B FINISHED YARN EXAMINER, CMP ####[facility] Jylvyivlvg0299[address] [place], [place] [address]Dr. Airam Tripathi Urea nitrogen [Mass/Vol] 35.0 mg/dL Critically high 7.0-18.0 [facility] Comment on above: Performed By: #### B FINISHED YARN EXAMINER, CMP ####[facility] Ecxpuajdyz693[address] [place], [place] [address]Dr. Airam Tripathi Urea nitrogen/Creatinine [Mass ratio] 19.1 mg/mg Normal [facility] Comment on above: Performed By: #### B FINISHED YARN EXAMINER, CMP ####[facility] Nemphxhizx9676[address] [place], [place] [address]Dr. Airam Tripathi UA RANDOM W/MICROSCOPICon BACTERIA TRACE Abnormal NONE SEEN [facility] Comment on above: Performed By: #### U AMIC ####[facility] Rqfqdlpypy418[address] [place], [place] [address]Dr. Airam Tripathi Bilirubin Ql (U) Negative Normal NEGATIVE [facility] Comment on above: Performed By: #### U AMIC ####[facility] Tsxssujvde3268[address] [place], [place] [address]Dr. Airam Tripathi CAST NONE SEEN Normal NONE SEEN [facility] Comment on above: Performed By: #### U AMIC ####[facility] Zfimrvixjg4045[address] [place], [place] [address]Dr. Airam Tripathi Clarity (U) CLEAR Normal CLEAR [facility] Comment on above: Performed By: #### U AMIC ####[facility] Uinqbjkwwe57[address] [place], [place] [address]Dr. Airam Tripathi Color (U) LT. YELLOW Normal YELLOW [facility] Comment on above: Performed By: #### U AMIC ####[facility] [address]lcmyugb[address] [place] [address]Dr. Airam Tripathi Crystals LM Nom (Urine sed) NONE SEEN Normal NONE SEEN [facility] Comment on above: Performed By: #### U AMIC ####[facility] Jiwe[address]uowh[address] [place] [address]Dr. Airam Tripathi Epithelial cells LM Ql (Urine sed) FEW Abnormal NONE SEEN /RARE [facility] Comment on above: Performed By: #### U AMIC ####[facility] Vztcllqthq[address] [place], [place] [address]Dr. Selenaneil Tripathi Glucose Ql (U) Negative Normal NEGATIVE [facility] Comment on above: Performed By: #### U AMIC ####[facility] Gwtmiodely7706[address] [place], [place] [address]Dr. Selenalan Tripathi Hemoglobin Ql (U) Negative Normal NEGATIVE [facility] Comment on above: Performed By: #### U AMIC ####[facility] Yxujorclgw0064[address] [place], [place] [address]Dr. Airam Tripathi Ketones Ql (U) Negative Normal NEGATIVE [facility] Comment on above: Performed By: #### U AMIC ####[facility] Pfcahkapdu4425[address] [place], [place] [address]Dr. Yilan Tripathi LEUKOCYTES MODERATE Abnormal NEGATIVE [facility] Comment on above: Performed By: #### U AMIC ####[facility] Drsbiizzco6040[address] [place], [place] [address]Dr. Yilan Tripathi MUCOUS NONE SEEN Normal NONE SEEN [facility] Comment on above: Performed By: #### U AMIC ####[facility] R[address]rvyqpyv48[address] [place] [address]Dr. Airam Tripathi Nitrite Ql (U) Negative Normal NEGATIVE [facility] Comment on above: Performed By: #### U AMIC ####[facility] Fepfumoypw27[address] [place] [address]Dr. Airam Tripathi pH (U) 5.5 [pH] Normal 5-9 [facility] Comment on above: Performed By: #### U AMIC ####[facility] Ahvzxobiod[address] [place] [address]Dr. Selenaneil Tripathi RBC 0-2 Normal 0-2 [facility] Comment on above: Performed By: #### U AMIC ####[facility] Jhojzjbgoe42[address] [place] [address]Dr. Airam Tripathi SPEC GRAVITY 1.020 Normal 1.005-<=1.02 5 [facility] Comment on above: Performed By: #### U AMIC ####[facility] Pjgzeblonq[address] [place], [place] [address]Dr. Airam Tripathi UA PROTEIN Negative Normal NEGATIVE/ TRACE [facility] Comment on above: Performed By: #### U AMIC ####[facility] [address]zvedsfhpc[address] [place] [address]Dr. Airam Tripathi Urobilinogen Qn (U) 0.2 {Ligia'U}/dL Normal 0.2 - 1. 0 [facility] Comment on above: Performed By: #### U AMIC ####[facility] Cbjvepcewz0325[address] [place], [place] [address]Dr. Airam Tripathi WBC 5-10 Abnormal NONE SEEN [facility] Comment on above: Performed By: #### U AMIC ####[facility] [address]xghmnvoyl[address] [place] [id number]. Selenaneil Tripathi BNPon 06-13-2022 Natriuretic peptide B (Bld) [Mass/Vol] 1496.0 pg/mL Critically high <=900.0 [facility] Comment on above: Performed By: #### T 4, BNP, MG, TSH, CMADM, CRP, CMP ####[facility] [address]zzzas[address] [place], [place] [address]Dr. Airam Tripathi CARDIAC CONSUELO 3-6on 2 CK [Catalytic activity/Vol] 125 U/L Normal 26-192 [facility] Comment on above: Performed By: #### C MREP ####[facility] Bjbjomep[address] [place], [place] [address]Dr. Airam Tripathi CK.MB [Mass/Vol] ng/mL Normal <=3.60 [facility] Comment on above: Performed By: #### C MREP ####[facility] [address] [place] [address]Dr. Airam Tripathi HSTROP 5.8 pg/mL Normal 4.0-51.3 [facility] Comment on above: Result Comment: CUT- OFF POINTS HAVE BEEN ESTABLISHED BASED ON THE FOURTH UNIVERSAL DEFINITIONS OF MYOCARDIALINFARCTION. THE UPPER REFERENCE LIMIT (URL) OF TROPONIN, DEFINED THE 99TH PERCENTILE OFcTnI DISTRIBUTION IN A REFERENCE POPULATION, HAS BEEN CONFIRMED THE DECISION THRESHOLDFOR [place] DIAGNOSIS. Performed By: #### C MREP ####[facility] [address] [place] [address]Dr. Airam Tripathi CARDIAC CONSUELO ADMITon 022 CK [Catalytic activity/Vol] 121 U/L Normal 26-192 [facility] Comment on above: Performed By: #### T 4, BNP, MG, TSH, CMADM, CRP, CMP ####[facility] [address]ysv[address] [place] [address]Dr. Airam Deuce CK.MB [Mass/Vol] 3.06 ng/mL Normal <=3.60 [facility] Comment on above: Performed By: #### T 4, BNP, MG, TSH, CMADM, CRP, CMP ####[facility] [address]mqughep[address] [place], [place] [address]Dr. Airam Tripathi HSTROP 6.9 pg/mL Normal 4.0-51.3 [facility] Comment on above: Result Comment: CUT- OFF POINTS HAVE BEEN ESTABLISHED BASED ON THE FOURTH UNIVERSAL DEFINITIONS OF MYOCARDIALINFARCTION. THE UPPER REFERENCE LIMIT (URL) OF TROPONIN, DEFINED THE 99TH PERCENTILE OFcTnI DISTRIBUTION IN A REFERENCE POPULATION, HAS BEEN CONFIRMED THE DECISION THRESHOLDFOR [place] DIAGNOSIS. Performed By: #### T 4, BNP, MG, TSH, CMADM, CRP, CMP ####[facility] [address] [place] [address]Dr. Airam Tripathi KATHY 124 ng/mL Critically high 9-82 [facility] Comment on above: Performed By: #### T 4, BNP, MG, TSH, CMADM, CRP, CMP ####[facility] [address] [place] [address]Dr. Airam Tripathi CBC AUTO DIFFon 06-13-2022 BASO # 0.0 103/ul Normal 0.0-0.1 [facility] Comment on above: Performed By: #### C BC ####[facility] Qluviqlgbz03[address] [place], [place] [address]Dr. Airam Tripathi Basophils/100 WBC (Bld) 0.2 % Normal 0.2-2.0 [facility] Comment on above: Performed By: #### C BC ####[facility] Jsuxjhgjjm[address] [place], [place] [address]Dr. Airam Tripathi EO # 0.2 103/ul Normal 0.0-0.7 [facility] Comment on above: Performed By: #### C BC ####[facility] Qdpiafobku6[address] [place], [place] [address]Dr. Selenaneil Tripathi Eosinophils/100 WBC (Bld) 1.5 % Normal 0.9-7.0 [facility] Comment on above: Performed By: #### C BC ####[facility] Xqqtujeklx64[address] [place], [place] [address]Dr. Airam Tripathi Erythrocyte distribution width (RBC) [Ratio] 12.7 % Normal 11.0-15.0 [facility] Comment on above: Performed By: #### C BC ####[facility] Lzqyyofxrv9[address] [place], [place] [address]Dr. Airam Tripathi Hematocrit (Bld) [Volume fraction] 30.0 % Critically low 36.0-48.0 [facility] Comment on above: Performed By: #### C BC ####[facility] Akxszywogi4[address] [place], [place] [address]Dr. Airam Tripathi Hemoglobin (Bld) [Mass/Vol] 9.6 g/dL Critically low 12.0-16.0 [facility] Comment on above: Performed By: #### C BC ####[facility] Ccgnxwbbxo23[address] [place], [place] [address]Dr. Airam Tripathi IG # 0.11 10e3/ul Critically high 0.00-0.03 [facility] Comment on above: Performed By: #### C BC ####[facility] [address] [place] [address]Dr. Airam Tripathi IG % 1.1 % Critically high 0.0-0.5 [facility] Comment on above: Performed By: #### C BC ####[facility] [address]bd[address] [place] [address]Dr. Airam Tripathi LYMPH # 1.5 103/ul Normal 1.2-3.8 [facility] Comment on above: Performed By: #### C BC ####[facility] [address]nmdugb[address] [place] [address]Dr. Airam Tripathi Lymphocytes/100 WBC (Bld) 14.9 % Critically low 20.5-60.0 [facility] Comment on above: Performed By: #### C BC ####[facility] [address]tx[address]irv[address] [place] [address]Dr. Airam Tripathi MANUAL DIFF REQ NO Normal [facility] Comment on above: Performed By: #### C BC ####[facility] Ogrklasid[address] [place], [place] [id number]. Airam Tripathi MCH (RBC) [Entitic mass] 30.0 pg Normal 26.7-34.0 [facility] Comment on above: Performed By: #### C BC ####[facility] [address]uz[address] [place] [address]Dr. Airam Tripathi MCHC (RBC) [Mass/Vol] 32.0 g/dL Normal 29.9-35.2 [facility] Comment on above: Performed By: #### C BC ####[facility] [address]de[address] [place] [address]Dr. Airam Tripathi MCV (RBC) [Entitic vol] 93.8 fL Normal 81.0-99.0 [facility] Comment on above: Performed By: #### C BC ####[facility] [address]biwx[address] [place] [address]Dr. Airam Tripathi MONO # 0.8 103/ul Normal 0.3-0.8 [facility] Comment on above: Performed By: #### C BC ####[facility] [address]dchdeusfq23[address] [place] [address]Dr. Airam Tripathi Monocytes/100 WBC (Bld) 7.3 % Normal 1.7-12.0 [facility] Comment on above: Performed By: #### C BC ####[facility] [address]pex[address] [place] [address]Dr. Airam Tripathi NEUT # 7.8 103/ul Critically high 1.4-6.5 [facility] Comment on above: Performed By: #### C BC ####[facility] [address] [place] [address]Dr. Airam Tripathi Neutrophils/100 WBC (Bld) 75.0 % Normal 43.0-75.0 [facility] Comment on above: Performed By: #### C BC ####[facility] [address]ix[address] [place] [address]Dr. Airam Tripathi Platelet mean volume (Bld) [Entitic vol] 9.1 fL Critically low 9.5-13.5 [facility] Comment on above: Performed By: #### C BC ####[facility] B[address]mhx[address]ig[address] [place] [address]Dr. Airam Tripathi PLT 341 103/ul Normal 150-450 [facility] Comment on above: Performed By: #### C BC ####[facility] [address]xc[address]acd[address] [place] [address]Dr. Airam Tripathi RBC 3.20 106/ul Critically low 4.20-5.40 [facility] Comment on above: Performed By: #### C BC ####[facility] Zmxvadys[address] [place], [place] [id number]. Airam Tripathi WBC 10.4 103/ul Normal 4.0-11.0 [facility] Comment on above: Performed By: #### C BC ####[facility] Rlmobdthrp[address] [place], [place] [address]Dr. Airam Tripathi CRPon 06-13-2022 CRP [Mass/Vol] mg/L Normal <=1.0 [facility] Comment on above: Performed By: #### T 4, BNP, MG, TSH, CMADM, CRP, CMP ####[facility] [address]ty[address] [place] [phone]. Selenaneil Tripathi CT HEAD WO CONon 06-13-2022 CT HEAD WO CON Normal [facility] SARS-CoV-2 (COVID-19) RNA MIKE+probe Ql (Unsp spec) Not detected Normal NOT DETECTED [facility] Comment on above: Result Comment: [...] for this test is supported by the Labor Relations Analyst of Health and Human Service's declaration that [...] be used). Performed By: #### C VDTBH ####[facility] [address]upv[address] [place] [address]Dr. Selenaneil Deuce LACTATE/LACTIC ACIDon 2021 Lactate [Moles/Vol] 0.5 mmol/L Normal 0.4-1.9 [facility] Comment on above: Performed By: #### L ACT ####[facility] [address]rm[address] [place] [address]Dr. Airam Tripathi MAGNESIUMon 06-13-2022 Magnesium [Mass/Vol] 1.9 mg/dL Normal 1.8-2.4 [facility] Comment on above: Performed By: #### T 4, BNP, MG, TSH, CMADM, CRP, CMP ####[facility] [address]rqe[address] [place] [address]Dr. Airam Tripathi PROF 14(COMP METB)on 022 Albumin [Mass/Vol] 3.8 g/dL Normal 3.4-5.0 [facility] Comment on above: Performed By: #### T 4, BNP, MG, TSH, CMADM, CRP, CMP ####[facility] V[address]xyorso[address] [place] [address]Dr. Airam Triptahi Albumin/Globulin [Mass ratio] 1.1 {ratio} Normal [facility] Comment on above: Performed By: #### T 4, BNP, MG, TSH, CMADM, CRP, CMP ####[facility] [address]xnpdi[address] [place] [address]Dr. Airam Tripathi ALP [Catalytic activity/Vol] 161 U/L Critically high 46-116 [facility] Comment on above: Performed By: #### T 4, BNP, MG, TSH, CMADM, CRP, CMP ####[facility] C[address]zgytbyvh[address] [place] [address]Dr. Airam Tripathi ALT [Catalytic activity/Vol] 21 U/L Normal 14-59 [facility] Comment on above: Performed By: #### T 4, BNP, MG, TSH, CMADM, CRP, CMP ####[facility] Ox[address]mewnk[address] [place] [address]Dr. Airam Tripathi Anion gap [Moles/Vol] 12.6 mmol/L Normal [facility] Comment on above: Performed By: #### T 4, BNP, MG, TSH, CMADM, CRP, CMP ####[facility] P[address]lz[address] [place] [address]Dr. Airam Tripathi AST [Catalytic activity/Vol] 30 U/L Normal 15-37 [facility] Comment on above: Performed By: #### T 4, BNP, MG, TSH, CMADM, CRP, CMP ####[facility] Abjnrjtdnp[address] [place] [address]Dr. Airam Tripathi Bilirubin [Mass/Vol] 0.3 mg/dL Normal 0.2-1.0 [facility] Comment on above: Performed By: #### T 4, BNP, MG, TSH, CMADM, CRP, CMP ####[facility] Kz[address]kjmxr[address] [place] [address]Dr. Airam Tripathi Calcium [Mass/Vol] 8.8 mg/dL Normal 8.5-10.1 [facility] Comment on above: Performed By: #### T 4, BNP, MG, TSH, CMADM, CRP, CMP ####[facility] Ikn[address]auhui[address] [place] [address]Dr. Airam Tripathi Chloride [Moles/Vol] 91 mmol/L Critically low 98-107 [facility] Comment on above: Performed By: #### T 4, BNP, MG, TSH, CMADM, CRP, CMP ####[facility] Yeguhetlgm13[address] [place], [place] [address]Dr. Airam Tripathi CO2 [Moles/Vol] 26.9 mmol/L Normal 21.0-32.0 [facility] Comment on above: Performed By: #### T 4, BNP, MG, TSH, CMADM, CRP, CMP ####[facility] Ffeacsnygi[address] [place], [place] [address]Dr. Airam Tripathi Creatinine [Mass/Vol] 1.83 mg/dL Critically high 0.55-1.02 [facility] Comment on above: Performed By: #### T 4, BNP, MG, TSH, CMADM, CRP, CMP ####[facility] Rhvzbqkhrs[address] [place], [place] [address]Dr. Airam Tripathi EGFR-AF CITIZEN [place] 34 mL/min/1.73m2 Critically low >=60 [facility] Comment on above: Performed By: #### T 4, BNP, MG, TSH, CMADM, CRP, CMP ####[facility] Iznzwfwztu1234[address] [place], [place] [address]Dr. Airam Tripathi EGFR-NON AF CITIZEN [place] 28 mL/min/1.73m2 Critically low >=60 [facility] Comment on above: Performed By: #### T 4, BNP, MG, TSH, CMADM, CRP, CMP ####[facility] Fvlmvxltak74[address] [place], [place] [address]Dr. Airam Tripathi Globulin (S) [Mass/Vol] 3.5 g/dL Normal [facility] Comment on above: Performed By: #### T 4, BNP, MG, TSH, CMADM, CRP, CMP ####[facility] Hneiwxbqsu0487[address] [place], [place] [address]Dr. Airam Tripathi Glucose [Mass/Vol] 96 mg/dL Normal 74-106 [facility] Comment on above: Performed By: #### T 4, BNP, MG, TSH, CMADM, CRP, CMP ####[facility] Mfgvoadexr25[address] [place], [place] [address]Dr. Airam Tripathi Potassium [Moles/Vol] 4.5 mmol/L Normal 3.5-5.1 [facility] Comment on above: Performed By: #### T 4, BNP, MG, TSH, CMADM, CRP, CMP ####[facility] Kcnvqteasa68[address] [place], [place] [address]Dr. Selenalan Tripathi Protein [Mass/Vol] 7.3 g/dL Normal 6.4-8.2 [facility] Comment on above: Performed By: #### T 4, BNP, MG, TSH, CMADM, CRP, CMP ####[facility] Ekljnmjigr8887[address] [place], [place] [address]Dr. Selenalan Tripathi Sodium [Moles/Vol] 126 mmol/L Critically low 136-145 [facility] Comment on above: Performed By: #### T 4, BNP, MG, TSH, CMADM, CRP, CMP ####[facility] [address]ubzdqu[address] [place] [address]Dr. Yilan Tripathi Urea nitrogen [Mass/Vol] 34.0 mg/dL Critically high 7.0-18.0 [facility] Comment on above: Performed By: #### T 4, BNP, MG, TSH, CMADM, CRP, CMP ####[facility] Ukmrlxqloi5[address] [place], [place] [address]Dr. Selenalan Tripathi Urea nitrogen/Creatinine [Mass ratio] 18.6 mg/mg Normal [facility] Comment on above: Performed By: #### T 4, BNP, MG, TSH, CMADM, CRP, CMP ####[facility] Zklrpezmhj70[address] [place] [address]Dr. Airam Tripathi Albumin [Mass/Vol] 3.4 g/dL Normal 3.4-5.0 [facility] Comment on above: Performed By: #### C MP ####[facility] Oeniujoopp49[address] [place], [place] [address]Dr. Airam Tripathi Albumin/Globulin [Mass ratio] 1.0 {ratio} Normal [facility] Comment on above: Performed By: #### C MP ####[facility] Sruincvsvf37[address] [place], [place] [address]Dr. Airam Tripathi ALP [Catalytic activity/Vol] 151 U/L Critically high 46-116 [facility] Comment on above: Performed By: #### C MP ####[facility] Tktmrorrdx110[address] [place], [place] [address]Dr. Airam Tripathi ALT [Catalytic activity/Vol] 20 U/L Normal 14-59 [facility] Comment on above: Performed By: #### C MP ####[facility] Zvdsaniufx7527[address] [place], [place] [address]Dr. Airam Tripathi Anion gap [Moles/Vol] 11.7 mmol/L Normal [facility] Comment on above: Performed By: #### C MP ####[facility] Vghpwpfwfm[address] [place], [place] [address]Dr. Airam Tripathi AST [Catalytic activity/Vol] 28 U/L Normal 15-37 [facility] Comment on above: Performed By: #### C MP ####[facility] Dbcbxcvcrn1930[address] [place], [place] [address]Dr. Airam Tripathi Bilirubin [Mass/Vol] 0.3 mg/dL Normal 0.2-1.0 [facility] Comment on above: Performed By: #### C MP ####[facility] Iyblnngdeu7188[address] [place], [place] [address]Dr. Airam Tripathi Calcium [Mass/Vol] 8.5 mg/dL Normal 8.5-10.1 [facility] Comment on above: Performed By: #### C MP ####[facility] Fpbdnxkwcq[address] [place], [place] [address]Dr. Airam Tripathi Chloride [Moles/Vol] 91 mmol/L Critically low 98-107 [facility] Comment on above: Performed By: #### C MP ####[facility] Jrxelabwsc045[address] [place] [address]Dr. Airam Deuce CO2 [Moles/Vol] 28.3 mmol/L Normal 21.0-32.0 [facility] Comment on above: Performed By: #### C MP ####[facility] Eexuqfeqin[address] [place], [place] [address]Dr. Airam Deuce Creatinine [Mass/Vol] 1.68 mg/dL Critically high 0.55-1.02 [facility] Comment on above: Performed By: #### C MP ####[facility] Opcpbcosoj[address] [place], [place] [address]Dr. Airam Tripathi EGFR-AF [place]IZ[place] 38 mL/min/1.73m2 Critically low >=60 [facility] Comment on above: Performed By: #### C MP ####[facility] Cszbuvzlkd[address] [place], [place] [address]Dr. Airam Deuce EGFR-NON AF CITIZEN [place] 31 mL/min/1.73m2 Critically low >=60 [facility] Comment on above: Performed By: #### C MP ####[facility] Tyoogekgsk64[address] [place], [place] [address]Dr. Airam Tripathi Globulin (S) [Mass/Vol] 3.5 g/dL Normal [facility] Comment on above: Performed By: #### C MP ####[facility] Vizitgyalu2340[address] [place], [place] [address]Dr. Airam Tripathi Glucose [Mass/Vol] 74 mg/dL Normal 74-106 [facility] Comment on above: Performed By: #### C MP ####[facility] Ikxuqyasyo967[address] [place], [place] [address]Dr. Airam Tripathi Potassium [Moles/Vol] 4.0 mmol/L Normal 3.5-5.1 [facility] Comment on above: Performed By: #### C MP ####[facility] Jcrupqxpjv4[address] [place], [place] [address]Dr. Airam Tripathi Protein [Mass/Vol] 6.9 g/dL Normal 6.4-8.2 [facility] Comment on above: Performed By: #### C MP ####[facility] Hbwomqqjbj55[address] [place] [address]Dr. Airam Tripathi Sodium [Moles/Vol] 127 mmol/L Critically low 136-145 [facility] Comment on above: Performed By: #### C MP ####[facility] Rqxoxqnntv1190 [place] [address]Dr. Airam Tripathi Urea nitrogen [Mass/Vol] 29.0 mg/dL Critically high 7.0-18.0 [facility] Comment on above: Performed By: #### C MP ####[facility] Mmmzehsvcq606[address] [place], [place] [address]Dr. Airam Tripathi Urea nitrogen/Creatinine [Mass ratio] 17.3 mg/mg Normal [facility] Comment on above: Performed By: #### C MP ####[facility] Opddmbjtho4070[address] [place], [place] [address]Dr. Airam Tripathi T4on 06-13-2022 T4 [Mass/Vol] 6.80 ug/dL Normal 4.80-13.90 [facility] Comment on above: Performed By: #### T 4, BNP, MG, TSH, CMADM, CRP, CMP ####[facility] [address]hsyyqc[address] [place] [address]Dr. Airam Tripathi TSHon 06-13-2022 TSH 0.101 uIU/mL Critically low 0.358-3.740 [facility] Comment on above: Performed By: #### T 4, BNP, MG, TSH, CMADM, CRP, CMP ####[facility] [address]jlywondr[address] [place] [address]Dr. Airam Tripathi OSMOLALITYon 06-08-2022 Osmolality [Osmolality] 272 mosm/kg Critically low 275-295 [facility] Comment on above: Performed By: #### O SMO ####[facility] Kepzkxtiey[address] [place], [place] [address]Dr. Airam Tripathi CBC AUTO DIFFon 06-06-2022 BASO # 0.0 103/ul Normal 0.0-0.1 [facility] Comment on above: Performed By: #### C BC ####[facility] Eqibjinevw[address] [place] [address]Dr. Airam Tripathi Basophils/100 WBC (Bld) 0.3 % Normal 0.2-2.0 [facility] Comment on above: Performed By: #### C BC ####[facility] Fnchxovcae307[address] [place], [place] [address]Dr. Airam Tripathi EO # 0.2 103/ul Normal 0.0-0.7 [facility] Comment on above: Performed By: #### C BC ####[facility] Pbtdyuuikg496[address] [place], [place] [address]Dr. Airam Tripathi Eosinophils/100 WBC (Bld) 2.5 % Normal 0.9-7.0 [facility] Comment on above: Performed By: #### C BC ####[facility] Efbwufdyoq6177[address] [place], [place] [address]Dr. Airam Tripathi Erythrocyte distribution width (RBC) [Ratio] 12.9 % Normal 11.0-15.0 [facility] Comment on above: Performed By: #### C BC ####[facility] Irvjilalzy80[address] [place], [place] [address]Dr. Airam Tripathi Hematocrit (Bld) [Volume fraction] 29.8 % Critically low 36.0-48.0 [facility] Comment on above: Performed By: #### C BC ####[facility] Oqjefmrgxe85[address] [place], [place] [address]Dr. Airam Tripathi Hemoglobin (Bld) [Mass/Vol] 9.7 g/dL Critically low 12.0-16.0 [facility] Comment on above: Performed By: #### C BC ####[facility] Jrgwarnrwu0314[address] [place], [place] [address]Dr. Airam Tripathi IG # 0.03 10e3/ul Normal 0.00-0.03 [facility] Comment on above: Performed By: #### C BC ####[facility] Cnlbjosivp505[address] [place], [place] [address]Dr. Airam Tripathi IG % 0.3 % Normal 0.0-0.5 [facility] Comment on above: Performed By: #### C BC ####[facility] V[address]tchwqsl[address] [place] [address]DrKianna Tripathi LYMPH # 1.3 103/ul Normal 1.2-3.8 [facility] Comment on above: Performed By: #### C BC ####[facility] Ojcqngmbgy1368 [place] [address]DrKianna Tripathi Lymphocytes/100 WBC (Bld) 14.6 % Critically low 20.5-60.0 [facility] Comment on above: Performed By: #### C BC ####[facility] Psrmrlwrlk[address] [place], [place] [address]DrKianna Tripathi MANUAL DIFF REQ NO Normal [facility] Comment on above: Performed By: #### C BC ####[facility] Bdtnvhwnkw[address] [place], [place] [address]DrKianna Tripathi MCH (RBC) [Entitic mass] 30.6 pg Normal 26.7-34.0 [facility] Comment on above: Performed By: #### C BC ####[facility] Dvzruxlkdx01[address] [place], [place] [address]DrKianna Tripathi MCHC (RBC) [Mass/Vol] 32.6 g/dL Normal 29.9-35.2 [facility] Comment on above: Performed By: #### C BC ####[facility] Ofwhfxkipb20[address] [place], [place] [address]DrKianna Tripathi MCV (RBC) [Entitic vol] 94.0 fL Normal 81.0-99.0 [facility] Comment on above: Performed By: #### C BC ####[facility] Hsvynnerpc[address] [place], [place] [address]DrKianna Tripathi MONO # 0.5 103/ul Normal 0.3-0.8 [facility] Comment on above: Performed By: #### C BC ####[facility] Jjgdsyytfh[address] [place], [place] [address]DrKianna Tripathi Monocytes/100 WBC (Bld) 5.7 % Normal 1.7-12.0 [facility] Comment on above: Performed By: #### C BC ####[facility] Jdinhxgfnp[address] [place] [address]Dr. Selenaneil Tripathi NEUT # 6.9 103/ul Critically high 1.4-6.5 [facility] Comment on above: Performed By: #### C BC ####[facility] Gqbbrkfdhk032[address] [place] [address]DrKianna Tripathi Neutrophils/100 WBC (Bld) 76.6 % Critically high 43.0-75.0 [facility] Comment on above: Performed By: #### C BC ####[facility] H[address]pyebraxq[address] [place], [place] [address]DrKianna Tripathi Platelet mean volume (Bld) [Entitic vol] 9.2 fL Critically low 9.5-13.5 [facility] Comment on above: Performed By: #### C BC ####[facility] Hxtivujevq9[address] [place], [place] [address]DrKianna Tripathi PLT 271 103/ul Normal 150-450 [facility] Comment on above: Performed By: #### C BC ####[facility] Csymmysgsn788834 [address] [place], [place] [address]DrKianna Tripathi RBC 3.17 106/ul Critically low 4.20-5.40 [facility] Comment on above: Performed By: #### C BC ####[facility] Rtplxucqzh001034 [address] [place], [place] [address]DrKianna Tripathi WBC 9.1 103/ul Normal 4.0-11.0 [facility] Comment on above: Performed By: #### C BC ####[facility] Cuztdyywbz503834 [address] [place], [place] [address]DrKianna Tripathi PROF 14(COMP METB)on 022 Albumin [Mass/Vol] 3.4 g/dL Normal 3.4-5.0 [facility] Comment on above: Performed By: #### C MP ####[facility] Ondxeuxasb345134 [address] [place], [place] [address]DrKianna Tripathi Albumin/Globulin [Mass ratio] 1.0 {ratio} Normal [facility] Comment on above: Performed By: #### C MP ####[facility] [address] [place] [address]Dr. Airam Deuce ALP [Catalytic activity/Vol] 156 U/L Critically high 46-116 [facility] Comment on above: Performed By: #### C MP ####[facility] Poqvnsadjw048434 [address] [place], [place] [address]Dr. Airam Deuce ALT [Catalytic activity/Vol] 18 U/L Normal 14-59 [facility] Comment on above: Performed By: #### C MP ####[facility] Glvsxkvjoy779634 [address] [place], [place] [address]Dr. Airam Tripathi Anion gap [Moles/Vol] 10.8 mmol/L Normal [facility] Comment on above: Performed By: #### C MP ####[facility] Skpsoxmzdy481134 [address] [place], [place] [address]Dr. Airam Deuce AST [Catalytic activity/Vol] 27 U/L Normal 15-37 [facility] Comment on above: Performed By: #### C MP ####[facility] Zazkdactfe480734 [address] [place], [place] [address]Dr. Airam Tripathi Bilirubin [Mass/Vol] 0.2 mg/dL Normal 0.2-1.0 [facility] Comment on above: Performed By: #### C MP ####[facility] Vmiklojucp921834 [address] [place], [place] [address]Dr. Airam Tripathi Calcium [Mass/Vol] 8.1 mg/dL Critically low 8.5-10.1 [facility] Comment on above: Performed By: #### C MP ####[facility] Ltomhtpdve105334 [address] [place], [place] [address]Dr. Airam Tripathi Chloride [Moles/Vol] 92 mmol/L Critically low 98-107 [facility] Comment on above: Performed By: #### C MP ####[facility] Loweccniug867634 [address] [place], [place] [address]Dr. Airam Tripathi CO2 [Moles/Vol] 27.4 mmol/L Normal 21.0-32.0 [facility] Comment on above: Performed By: #### C MP ####[facility] [address] [place] [address]Dr. Airam Deuce Creatinine [Mass/Vol] 1.57 mg/dL Critically high 0.55-1.02 [facility] Comment on above: Performed By: #### C MP ####[facility] Mxmipkhjqn[address] [place] [address]Dr. Airam Tripathi EGFR-AF [place]IZ[place] 41 mL/min/1.73m2 Critically low >=60 [facility] Comment on above: Performed By: #### C MP ####[facility] Vwitckongi437634 [address] [place], [place] [address]Dr. Airam Tripathi EGFR-NON AF CITIZEN [place] 34 mL/min/1.73m2 Critically low >=60 [facility] Comment on above: Performed By: #### C MP ####[facility] Btrqlivpgv933234 [address] [place], [place] [address]Dr. Airam Tripathi Globulin (S) [Mass/Vol] 3.4 g/dL Normal [facility] Comment on above: Performed By: #### C MP ####[facility] Sgvrakaykk129834 [address] [place], [place] [address]Dr. Airam Tripathi Glucose [Mass/Vol] 82 mg/dL Normal 74-106 [facility] Comment on above: Performed By: #### C MP ####[facility] Didhtiorif696334 [address] [place], [place] [address]Dr. Airam Tripathi Potassium [Moles/Vol] 4.2 mmol/L Normal 3.5-5.1 [facility] Comment on above: Performed By: #### C MP ####[facility] Jfjzpobddz663634 [address] [place], [place] [address]Dr. Airam Tripathi Protein [Mass/Vol] 6.8 g/dL Normal 6.4-8.2 [facility] Comment on above: Performed By: #### C MP ####[facility] Wxmjlqjtgh356734 [address] [place], [place] [address]Dr. Airam Tripathi Sodium [Moles/Vol] 126 mmol/L Critically low 136-145 [facility] Comment on above: Performed By: #### C MP ####[facility] Totzvryzvd492634 [address] [place], [place] [address]Dr. Selenaneil Deuce Urea nitrogen [Mass/Vol] 35.0 mg/dL Critically high 7.0-18.0 [facility] Comment on above: Performed By: #### C MP ####[facility] Tlcqwmfbye752334 [address] [place], [place] [address]Dr. Airam Tripathi Urea nitrogen/Creatinine [Mass ratio] 22.3 mg/mg Normal [facility] Comment on above: Performed By: #### C MP ####[facility] Dcgtiydxfx684634 [address] [place], [place] [address]Dr. Airam Tripathi OSMOLALITYon 06-02-2022 Osmolality [Osmolality] 276 mosm/kg Normal 275-295 [facility] Comment on above: Performed By: #### O SMO ####[facility] Eanxmgvseo800734 [address] [place], [place] [address]Dr. Airam Tripathi CBC AUTO DIFFon 06-01-2022 BASO # 0.1 103/ul Normal 0.0-0.1 [facility] Comment on above: Performed By: #### C BC ####[facility] Niiyghutfm505034 [address] [place], [place] [address]Dr. Airam Tripathi Basophils/100 WBC (Bld) 0.7 % Normal 0.2-2.0 [facility] Comment on above: Performed By: #### C BC ####[facility] Ssioemhidl151634 [address] [place], [place] [address]DrKianna Tripathi EO # 0.3 103/ul Normal 0.0-0.7 [facility] Comment on above: Performed By: #### C BC ####[facility] Mjnomjhciu578434 [address] [place], [place] [address]Dr. Airam Tripathi Eosinophils/100 WBC (Bld) 3.3 % Normal 0.9-7.0 [facility] Comment on above: Performed By: #### C BC ####[facility] Ryxklrmelr415634 [address] [place], [place] [address]Dr. Airam Tripathi Erythrocyte distribution width (RBC) [Ratio] 13.2 % Normal 11.0-15.0 [facility] Comment on above: Performed By: #### C BC ####[facility] [address]btkntyc[address] [place] [address]Dr. Airam Tripathi Hematocrit (Bld) [Volume fraction] 32.0 % Critically low 36.0-48.0 [facility] Comment on above: Performed By: #### C BC ####[facility] Ibgxvxlude100834 [address] [place], [place] [address]Dr. Selenaneil Tripathi Hemoglobin (Bld) [Mass/Vol] 10.3 g/dL Critically low 12.0-16.0 [facility] Comment on above: Performed By: #### C BC ####[facility] Xocvtwkovk976734 [address] [place], [place] [address]Dr. Airam Tripathi IG # 0.05 10e3/ul Critically high 0.00-0.03 [facility] Comment on above: Performed By: #### C BC ####[facility] Pgqymyogep082634 [address] [place], [place] [address]Dr. Selenaneil Tripathi IG % 0.7 % Critically high 0.0-0.5 [facility] Comment on above: Performed By: #### C BC ####[facility] Kqmuqmxbnb513134 [address] [place], [place] [address]Dr. Selenaneil Tripathi LYMPH # 1.7 103/ul Normal 1.2-3.8 [facility] Comment on above: Performed By: #### C BC ####[facility] Euidrdnkjy829034 [address] [place], [place] [address]DrKianna Tripathi Lymphocytes/100 WBC (Bld) 22.6 % Normal 20.5-60.0 [facility] Comment on above: Performed By: #### C BC ####[facility] Hhtwidsbpm220934 [address] [place], [place] [address]DrKianna Tripathi MANUAL DIFF REQ NO Normal [facility] Comment on above: Performed By: #### C BC ####[facility] Kdrrabbxfd893434 [address] [place], [place] [address]DrKianna Tripathi MCH (RBC) [Entitic mass] 30.8 pg Normal 26.7-34.0 [facility] Comment on above: Performed By: #### C BC ####[facility] [address]zdlujj[address] [place] [address]Dr. Airam Tripathi MCHC (RBC) [Mass/Vol] 32.2 g/dL Normal 29.9-35.2 [facility] Comment on above: Performed By: #### C BC ####[facility] Yksaaocpid873734 [address] [place], [place] [address]Dr. Airam Tripathi MCV (RBC) [Entitic vol] 95.8 fL Normal 81.0-99.0 [facility] Comment on above: Performed By: #### C BC ####[facility] Amzsgntfbq589134 [address] [place], [place] [address]Dr. Airam Deuce MONO # 0.6 103/ul Normal 0.3-0.8 [facility] Comment on above: Performed By: #### C BC ####[facility] Oukigpvbqn694434 [address] [place], [place] [address]Dr. Selenaneil Tripathi Monocytes/100 WBC (Bld) 8.6 % Normal 1.7-12.0 [facility] Comment on above: Performed By: #### C BC ####[facility] Brebfskxwb8794[address] [place], [place] [address]Dr. Airam Tripathi NEUT # 4.8 103/ul Normal 1.4-6.5 [facility] Comment on above: Performed By: #### C BC ####[facility] Xwqkpmqoza592934 [address] [place], [place] [address]Dr. Selenaneil Tripathi Neutrophils/100 WBC (Bld) 64.1 % Normal 43.0-75.0 [facility] Comment on above: Performed By: #### C BC ####[facility] Jvhihiozcm597934 [address] [place], [place] [address]Dr. Airam Deuce Platelet mean volume (Bld) [Entitic vol] 10.0 fL Normal 9.5-13.5 [facility] Comment on above: Performed By: #### C BC ####[facility] Ipznvybiid787134 [address] [place], [place] [address]Dr. Airam Tripathi PLT 322 103/ul Normal 150-450 [facility] Comment on above: Performed By: #### C BC ####[facility] [address]opp[address] [place] [address]Dr. Selenaneil Deuce RBC 3.34 106/ul Critically low 4.20-5.40 [facility] Comment on above: Performed By: #### C BC ####[facility] [address]tw[address] [place] [address]Dr. Airam Tripathi WBC 7.5 103/ul Normal 4.0-11.0 [facility] Comment on above: Performed By: #### C BC ####[facility] D[address]uyfevby[address] [place] [address]DrKianna Tripathi PROF 14(COMP METB)on 022 Albumin [Mass/Vol] 3.5 g/dL Normal 3.4-5.0 [facility] Comment on above: Performed By: #### C MP ####[facility] Qzeoirzgrg[address] [place] [address]DrKianna Tripathi Albumin/Globulin [Mass ratio] 1.1 {ratio} Normal [facility] Comment on above: Performed By: #### C MP ####[facility] Ldzcgnzseh[address] [place] [address]Dr. Airam Tripathi ALP [Catalytic activity/Vol] 167 U/L Critically high 46-116 [facility] Comment on above: Performed By: #### C MP ####[facility] Koxccwoiez[address] [place] [address]DrKianna Tripathi ALT [Catalytic activity/Vol] 24 U/L Normal 14-59 [facility] Comment on above: Performed By: #### C MP ####[facility] Jaadvhqlca[address] [place] [address]DrKianna Tripathi Anion gap [Moles/Vol] 14.1 mmol/L Normal [facility] Comment on above: Performed By: #### C MP ####[facility] Ztpdxnifyf27[address] [place] [address]DrKianna Tripathi AST [Catalytic activity/Vol] 27 U/L Normal 15-37 [facility] Comment on above: Performed By: #### C MP ####[facility] Tlunwpgbvv703[address] [place], [place] [address]Dr. Airam Deuce Bilirubin [Mass/Vol] 0.3 mg/dL Normal 0.2-1.0 [facility] Comment on above: Performed By: #### C MP ####[facility] Bnturdfrvf714234 [address] [place], [place] [address]Dr. Airam Tripathi Calcium [Mass/Vol] 8.0 mg/dL Critically low 8.5-10.1 [facility] Comment on above: Performed By: #### C MP ####[facility] Gpklooacja615234 [address] [place], [place] [address]Dr. Airam Tripathi Chloride [Moles/Vol] 96 mmol/L Critically low 98-107 [facility] Comment on above: Performed By: #### C MP ####[facility] Rcbffmzsku154834 [address] [place], [place] [address]Dr. Airam Tripathi CO2 [Moles/Vol] 24.6 mmol/L Normal 21.0-32.0 [facility] Comment on above: Performed By: #### C MP ####[facility] Iwmdocenhq288334 [address] [place], [place] [address]Dr. Airam Tripathi Creatinine [Mass/Vol] 1.79 mg/dL Critically high 0.55-1.02 [facility] Comment on above: Performed By: #### C MP ####[facility] Qldhlyjvfb273834 [address] [place], [place] [address]Dr. Airam Tripathi EGFR-AF [place] 35 mL/min/1.73m2 Critically low >=60 [facility] Comment on above: Performed By: #### C MP ####[facility] Gcuamdcesb408634 [address] [place], [place] [address]Dr. Airam Tripathi EGFR-NON AF [place]IZ[place] 29 mL/min/1.73m2 Critically low >=60 [facility] Comment on above: Performed By: #### C MP ####[facility] Gxjukyuzzk310634 [address] [place], [place] [address]Dr. Airam Tripathi Globulin (S) [Mass/Vol] 3.3 g/dL Normal [facility] Comment on above: Performed By: #### C MP ####[facility] Vntdnltqab144434 [address] [place], [place] [address]Dr. Airam Tripathi Glucose [Mass/Vol] 58 mg/dL Critically low 74-106 [facility] Comment on above: Performed By: #### C MP ####[facility] Hdcsgkeoak1046[address] [place], [place] [address]Dr. Airam Tripathi Potassium [Moles/Vol] 4.7 mmol/L Normal 3.5-5.1 [facility] Comment on above: Performed By: #### C MP ####[facility] Urdsvpwwud084434 [address] [place], [place] [address]Dr. Airam Tripathi Protein [Mass/Vol] 6.8 g/dL Normal 6.4-8.2 [facility] Comment on above: Performed By: #### C MP ####[facility] Uirimqgkhf798034 [address] [place], [place] [address]Dr. Airam Tripathi Sodium [Moles/Vol] 130 mmol/L Critically low 136-145 [facility] Comment on above: Performed By: #### C MP ####[facility] Csuxgphyik725034 [address] [place], [place] [address]DrKianna Tripathi Urea nitrogen [Mass/Vol] 30.0 mg/dL Critically high 7.0-18.0 [facility] Comment on above: Performed By: #### C MP ####[facility] Axoiojehgr498034 [address] [place], [place] [address]Dr. Airam Tripathi Urea nitrogen/Creatinine [Mass ratio] 16.8 mg/mg Normal [facility] Comment on above: Performed By: #### C MP ####[facility] Lmuctyriph0004[address] [place], [place] [address]DrKianna Tripathi OSMOLALITYon 05-28-2022 Osmolality [Osmolality] 275 mosm/kg Normal 275-295 [facility] Comment on above: Performed By: #### O SMO ####[facility] Cvmrmhatyf5399[address] [place], [place] [address]DrKianna Tripathi CBC AUTO DIFFon 05-26-2022 BASO # 0.0 103/ul Normal 0.0-0.1 [facility] Comment on above: Performed By: #### C BC ####[facility] [address]jcuml[address] [place] [address]Dr. Airam Deuce Basophils/100 WBC (Bld) 0.4 % Normal 0.2-2.0 [facility] Comment on above: Performed By: #### C BC ####[facility] Ezrujxdxbu3[address] [place] [address]Dr. Airam Tripathi EO # 0.3 103/ul Normal 0.0-0.7 [facility] Comment on above: Performed By: #### C BC ####[facility] Iwtnkutezq625934 [address] [place], [place] [address]Dr. Airam Tripathi Eosinophils/100 WBC (Bld) 3.2 % Normal 0.9-7.0 [facility] Comment on above: Performed By: #### C BC ####[facility] Ivqerqreku395234 [address] [place], [place] [address]Dr. Selenaneil Tripathi Erythrocyte distribution width (RBC) [Ratio] 13.0 % Normal 11.0-15.0 [facility] Comment on above: Performed By: #### C BC ####[facility] Ybnwgoczqp[address] [place] [address]Dr. Airam Tripathi Hematocrit (Bld) [Volume fraction] 30.4 % Critically low 36.0-48.0 [facility] Comment on above: Performed By: #### C BC ####[facility] Xmfqzvyjad9[address] [place] [address]Dr. Selenaneil Tripathi Hemoglobin (Bld) [Mass/Vol] 9.6 g/dL Critically low 12.0-16.0 [facility] Comment on above: Performed By: #### C BC ####[facility] [address]zbeiilsuf[address] [place] [address]Dr. Airam Tripathi IG # 0.06 10e3/ul Critically high 0.00-0.03 [facility] Comment on above: Performed By: #### C BC ####[facility] [address]cyxqa[address] [place] [id number]. Airam Deuce IG % 0.7 % Critically high 0.0-0.5 [facility] Comment on above: Performed By: #### C BC ####[facility] Rvljcngghc80[address] [place] [address]Dr. Airam Deuce LYMPH # 1.9 103/ul Normal 1.2-3.8 [facility] Comment on above: Performed By: #### C BC ####[facility] Pmninhcwcc38[address] [place] [address]Dr. Airam Deuce Lymphocytes/100 WBC (Bld) 20.6 % Normal 20.5-60.0 [facility] Comment on above: Performed By: #### C BC ####[facility] Flxcxehpmv47[address] [place] [address]Dr. Selenaneil Tripathi MANUAL DIFF REQ NO Normal [facility] Comment on above: Performed By: #### C BC ####[facility] Ckyplhgovg8756 [place] [address]Dr. Airam Deuce MCH (RBC) [Entitic mass] 30.1 pg Normal 26.7-34.0 [facility] Comment on above: Performed By: #### C BC ####[facility] Kyhcfavfhi347[address] [place], [place] [address]Dr. Airam Tripathi MCHC (RBC) [Mass/Vol] 31.6 g/dL Normal 29.9-35.2 [facility] Comment on above: Performed By: #### C BC ####[facility] Azhzdvzcbs[address] [place] [address]Dr. Aiarm Deuce MCV (RBC) [Entitic vol] 95.3 fL Normal 81.0-99.0 [facility] Comment on above: Performed By: #### C BC ####[facility] Mirkwdgcfk719434 [address] [place], [place] [address]Dr. Airam Tripathi MONO # 0.6 103/ul Normal 0.3-0.8 [facility] Comment on above: Performed By: #### C BC ####[facility] Rigxnrkala[address] [place] [address]Dr. Ariam Tripathi Monocytes/100 WBC (Bld) 6.9 % Normal 1.7-12.0 [facility] Comment on above: Performed By: #### C BC ####[facility] Izztnvvlcz9657 [place] [address]Dr. Airam Tripathi NEUT # 6.1 103/ul Normal 1.4-6.5 [facility] Comment on above: Performed By: #### C BC ####[facility] Ryydqpuami7[address] [place] [address]Dr. Airam Tripathi Neutrophils/100 WBC (Bld) 68.2 % Normal 43.0-75.0 [facility] Comment on above: Performed By: #### C BC ####[facility] Yjchkwnbcd8[address] [place] [address]Dr. Airam Tripathi Platelet mean volume (Bld) [Entitic vol] 9.7 fL Normal 9.5-13.5 [facility] Comment on above: Performed By: #### C BC ####[facility] Yolmkgudid3428[address] [place], [place] [address]Dr. Airam Tripathi PLT 317 103/ul Normal 150-450 [facility] Comment on above: Performed By: #### C BC ####[facility] Asobxlkdqi0798 [place] [address]Dr. Airam Tripathi RBC 3.19 106/ul Critically low 4.20-5.40 [facility] Comment on above: Performed By: #### C BC ####[facility] Zoohaiturt810234 [address] [place], [place] [address]Dr. Airam Tripathi WBC 9.0 103/ul Normal 4.0-11.0 [facility] Comment on above: Performed By: #### C BC ####[facility] Bxqnmidsxj112234 [address] [place], [place] [address]Dr. Airam Deuce PROF 14(COMP METB)on 022 Albumin [Mass/Vol] 3.4 g/dL Normal 3.4-5.0 [facility] Comment on above: Performed By: #### C MP ####[facility] Ciglgwztax32[address] [place] [address]Dr. Airam Tripathi Albumin/Globulin [Mass ratio] 1.0 {ratio} Normal [facility] Comment on above: Performed By: #### C MP ####[facility] Cdfwedibos9728[address] [place], [place] [address]Dr. Airam Tripathi ALP [Catalytic activity/Vol] 153 U/L Critically high 46-116 [facility] Comment on above: Performed By: #### C MP ####[facility] Tfuovrbtpj986034 [address] [place], [place] [address]Dr. Airam Tripathi ALT [Catalytic activity/Vol] 21 U/L Normal 14-59 [facility] Comment on above: Performed By: #### C MP ####[facility] Cvtbzqhdmo588[address] [place], [place] [address]Dr. Airam Tripathi Anion gap [Moles/Vol] 13.6 mmol/L Normal [facility] Comment on above: Performed By: #### C MP ####[facility] Qvsqlahcfz664034 [address] [place], [place] [address]Dr. Airam Tripathi AST [Catalytic activity/Vol] 23 U/L Normal 15-37 [facility] Comment on above: Performed By: #### C MP ####[facility] Wuvopqbjpu862[address] [place], [place] [address]Dr. Airam Tripathi Bilirubin [Mass/Vol] 0.2 mg/dL Normal 0.2-1.0 [facility] Comment on above: Performed By: #### C MP ####[facility] Pdhywqkpet882534 [address] [place], [place] [address]Dr. Airam Tripathi Calcium [Mass/Vol] 8.4 mg/dL Critically low 8.5-10.1 [facility] Comment on above: Performed By: #### C MP ####[facility] Tepaxpnipb973134 [address] [place], [place] [address]Dr. Airam Tripathi Chloride [Moles/Vol] 97 mmol/L Critically low 98-107 [facility] Comment on above: Performed By: #### C MP ####[facility] Sglvthfejo2314[address] [place], [place] [address]Dr. Airam Tripathi CO2 [Moles/Vol] 25.2 mmol/L Normal 21.0-32.0 [facility] Comment on above: Performed By: #### C MP ####[facility] Oigkejjjfk8[address] [place] [address]Dr. Airam Deuce Creatinine [Mass/Vol] 1.58 mg/dL Critically high 0.55-1.02 [facility] Comment on above: Performed By: #### C MP ####[facility] Olnwryntba6304[address] [place], [place] [address]Dr. Selenaneil Deuce EGFR-AF [place]IZ[place] 40 mL/min/1.73m2 Critically low >=60 [facility] Comment on above: Performed By: #### C MP ####[facility] Dhuglfmvcz73[address] [place], [place] [address]Dr. Airam Tripathi EGFR-NON AF CITIZ[place] 33 mL/min/1.73m2 Critically low >=60 [facility] Comment on above: Performed By: #### C MP ####[facility] Peyeotemfs1216[address] [place], [place] [address]Dr. Airam Tripathi Globulin (S) [Mass/Vol] 3.4 g/dL Normal [facility] Comment on above: Performed By: #### C MP ####[facility] Tcxovzmzok7270[address] [place], [place] [address]Dr. Airam Tripathi Glucose [Mass/Vol] 74 mg/dL Normal 74-106 [facility] Comment on above: Performed By: #### C MP ####[facility] Axkaadnbfu50[address] [place], [place] [address]Dr. Airam Tripathi Potassium [Moles/Vol] 4.8 mmol/L Normal 3.5-5.1 [facility] Comment on above: Performed By: #### C MP ####[facility] Gkhesmbhgj8179[address] [place], [place] [address]Dr. Airam Tripathi Protein [Mass/Vol] 6.8 g/dL Normal 6.4-8.2 [facility] Comment on above: Performed By: #### C MP ####[facility] Irlruqfekr842734 [address] [place], [place] [address]Dr. Airam Tripathi Sodium [Moles/Vol] 131 mmol/L Critically low 136-145 [facility] Comment on above: Performed By: #### C MP ####[facility] Snexyitwsj454[address] [place], [place] [address]Dr. Airam Tripathi Urea nitrogen [Mass/Vol] 31.0 mg/dL Critically high 7.0-18.0 [facility] Comment on above: Performed By: #### C MP ####[facility] Umyiszqldm2870[address] [place], [place] [address]Dr. Airam Tripathi Urea nitrogen/Creatinine [Mass ratio] 19.6 mg/mg Normal [facility] Comment on above: Performed By: #### C MP ####[facility] Rskpnonmaa722[address] [place], [place] [address]Dr. Airam Tripathi OSMOLALITYon 05-19-2022 Osmolality [Osmolality] 281 mosm/kg Normal 275-295 [facility] Comment on above: Performed By: #### O SMO ####[facility] Fiywvyzgob399[address] [place], [place] [address]Dr. Airam Tripathi CBC AUTO DIFFon 05-17-2022 BASO # 0.1 103/ul Normal 0.0-0.1 [facility] Comment on above: Performed By: #### C BC ####[facility] Eqrzqiarhj506834 [address] [place], [place] [address]Dr. Airam Tripathi Basophils/100 WBC (Bld) 0.6 % Normal 0.2-2.0 [facility] Comment on above: Performed By: #### C BC ####[facility] Eqargghyvk571434 [address] [place], [place] [address]Dr. Airam Tripathi EO # 0.2 103/ul Normal 0.0-0.7 [facility] Comment on above: Performed By: #### C BC ####[facility] Jjxkffbzkb587[address] [place], [place] [address]Dr. Airam Tripathi Eosinophils/100 WBC (Bld) 1.9 % Normal 0.9-7.0 [facility] Comment on above: Performed By: #### C BC ####[facility] Motassvziz615034 [address] [place], [place] [address]Dr. Airam Tripathi Erythrocyte distribution width (RBC) [Ratio] 12.9 % Normal 11.0-15.0 [facility] Comment on above: Performed By: #### C BC ####[facility] Dldoxrofbn598534 [address] [place], [place] [address]Dr. Airam Tripathi Hematocrit (Bld) [Volume fraction] 32.1 % Critically low 36.0-48.0 [facility] Comment on above: Performed By: #### C BC ####[facility] Poqbnbwrey974234 [address] [place], [place] [address]Dr. Selenaneil Tripathi Hemoglobin (Bld) [Mass/Vol] 9.9 g/dL Critically low 12.0-16.0 [facility] Comment on above: Performed By: #### C BC ####[facility] Mtccwuzivm166834 [address] [place], [place] [address]Dr. Airam Tripathi IG # 0.05 10e3/ul Critically high 0.00-0.03 [facility] Comment on above: Performed By: #### C BC ####[facility] Mgvipatvem385634 [address] [place], [place] [address]Dr. Airam Tripathi IG % 0.6 % Critically high 0.0-0.5 [facility] Comment on above: Performed By: #### C BC ####[facility] Scztjxsksx150734 [address] [place], [place] [address]Dr. Airam Tripathi LYMPH # 1.3 103/ul Normal 1.2-3.8 [facility] Comment on above: Performed By: #### C BC ####[facility] Fburkmmrxt537134 [address] [place], [place] [address]Dr. Airam Tripathi Lymphocytes/100 WBC (Bld) 15.2 % Critically low 20.5-60.0 [facility] Comment on above: Performed By: #### C BC ####[facility] Xjrcmkfyrn244[address] [place], [place] [address]Dr. Airam Tripathi MANUAL DIFF REQ NO Normal [facility] Comment on above: Performed By: #### C BC ####[facility] Dyqqgmplbe65[address] [place], [place] [id number]. Airam Tripathi MCH (RBC) [Entitic mass] 30.0 pg Normal 26.7-34.0 [facility] Comment on above: Performed By: #### C BC ####[facility] Fvsxysmlcx0346 [place] [phone]. Airam Tripathi MCHC (RBC) [Mass/Vol] 30.8 g/dL Normal 29.9-35.2 [facility] Comment on above: Performed By: #### C BC ####[facility] Ecdexzptyv[address] [place] [address]Dr. Airam Tripathi MCV (RBC) [Entitic vol] 97.3 fL Normal 81.0-99.0 [facility] Comment on above: Performed By: #### C BC ####[facility] Qndcprcqml9[address] [place] [address]Dr. Airam Deuce MONO # 0.5 103/ul Normal 0.3-0.8 [facility] Comment on above: Performed By: #### C BC ####[facility] Reildklikw847434 [address] [place], [place] [address]Dr. Airam Deuce Monocytes/100 WBC (Bld) 5.4 % Normal 1.7-12.0 [facility] Comment on above: Performed By: #### C BC ####[facility] Iaarycckzw7582 [place] [address]Dr. Airam Tripathi NEUT # 6.5 103/ul Normal 1.4-6.5 [facility] Comment on above: Performed By: #### C BC ####[facility] Txaleutipp004[address] [place], [place] [address]Dr. Airam Deuce Neutrophils/100 WBC (Bld) 76.3 % Critically high 43.0-75.0 [facility] Comment on above: Performed By: #### C BC ####[facility] Ibbvlkeizd0509 [place] [address]Dr. Airam Deuce Platelet mean volume (Bld) [Entitic vol] 10.1 fL Normal 9.5-13.5 [facility] Comment on above: Performed By: #### C BC ####[facility] S[address]wfyklph4371 [place] [address]Dr. Airam Tripathi PLT 284 103/ul Normal 150-450 [facility] Comment on above: Performed By: #### C BC ####[facility] Cbjgozvzim5117 [place] [address]Dr. Airam Tripathi RBC 3.30 106/ul Critically low 4.20-5.40 [facility] Comment on above: Performed By: #### C BC ####[facility] Kyvkjleyge7858 [place] [address]Dr. Airam Tripathi WBC 8.5 103/ul Normal 4.0-11.0 [facility] Comment on above: Performed By: #### C BC ####[facility] Ugvaokktct4[address] [place] [address]Dr. Airam Tripathi PROF 14(COMP METB)on 05-17- 022 Albumin [Mass/Vol] 3.1 g/dL Critically low 3.4-5.0 [facility] Comment on above: Performed By: #### C MP ####[facility] Fnufeqlxih05[address] [place] [address]Dr. Selenaneil Deuce Albumin/Globulin [Mass ratio] 0.9 {ratio} Normal [facility] Comment on above: Performed By: #### C MP ####[facility] Jmybyxdriv2501 [place] [address]Dr. Airam Tripathi ALP [Catalytic activity/Vol] 162 U/L Critically high 46-116 [facility] Comment on above: Performed By: #### C MP ####[facility] Ckwatydlgr1674 [place] [address]Dr. Airam Tripathi ALT [Catalytic activity/Vol] 22 U/L Normal 14-59 [facility] Comment on above: Performed By: #### C MP ####[facility] Dfhrvvdhfe3537 [place] [address]Dr. Airam Tripathi Anion gap [Moles/Vol] 9.4 mmol/L Normal [facility] Comment on above: Performed By: #### C MP ####[facility] Mfrdilvizm7104 [place] [address]Dr. Airam Tripathi AST [Catalytic activity/Vol] 26 U/L Normal 15-37 [facility] Comment on above: Performed By: #### C MP ####[facility] Rnjejixioi3691 [place] [address]Dr. Airam Tripathi Bilirubin [Mass/Vol] 0.2 mg/dL Normal 0.2-1.0 [facility] Comment on above: Performed By: #### C MP ####[facility] Jabtxmaevg954[address] [place], [place] [address]Dr. Airam Tripathi Calcium [Mass/Vol] 8.2 mg/dL Critically low 8.5-10.1 [facility] Comment on above: Performed By: #### C MP ####[facility] Eynbzyfkxd277834 [address] [place], [place] [address]Dr. Airam Tripathi Chloride [Moles/Vol] 103 mmol/L Normal 98-107 [facility] Comment on above: Performed By: #### C MP ####[facility] Vuupuaplsh740834 [address] [place], [place] [address]Dr. Airam Tripathi CO2 [Moles/Vol] 24.8 mmol/L Normal 21.0-32.0 [facility] Comment on above: Performed By: #### C MP ####[facility] Xqzxbmkqra1407[address] [place], [place] [address]Dr. Airam Tripathi Creatinine [Mass/Vol] 1.19 mg/dL Critically high 0.55-1.02 [facility] Comment on above: Performed By: #### C MP ####[facility] Tcjyhlxcsr529234 [address] [place], [place] [address]Dr. Airam Tripathi EGFR-AF [place]IZ[place] 56 mL/min/1.73m2 Critically low >=60 [facility] Comment on above: Performed By: #### C MP ####[facility] Xfbphmqgax1450[address] [place], [place] [address]Dr. Airam Tripathi EGFR-NON AF CITIZEN [place] 46 mL/min/1.73m2 Critically low >=60 [facility] Comment on above: Performed By: #### C MP ####[facility] Qijouprotm0570 [place] [address]Dr. Airam Tripathi Globulin (S) [Mass/Vol] 3.6 g/dL Normal [facility] Comment on above: Performed By: #### C MP ####[facility] Zokaecmyzo4[address] [place] [address]Dr. Airam Tripathi Glucose [Mass/Vol] 75 mg/dL Normal 74-106 [facility] Comment on above: Performed By: #### C MP ####[facility] Vjiezvnlop5233 [place] [address]Dr. Airam Tripathi Potassium [Moles/Vol] 5.2 mmol/L Critically high 3.5-5.1 [facility] Comment on above: Performed By: #### C MP ####[facility] Xjpqmgkaoj5216 [place] [address]Dr. Airam Tripathi Protein [Mass/Vol] 6.7 g/dL Normal 6.4-8.2 [facility] Comment on above: Performed By: #### C MP ####[facility] Rmtniyljod724534 [address] [place], [place] [address]Dr. Airam Tripathi Sodium [Moles/Vol] 132 mmol/L Critically low 136-145 [facility] Comment on above: Performed By: #### C MP ####[facility] Mqnzcnwggx767534 [address] [place], [place] [address]Dr. Airam Tripathi Urea nitrogen [Mass/Vol] 28.0 mg/dL Critically high 7.0-18.0 [facility] Comment on above: Performed By: #### C MP ####[facility] Maohuycwwh709334 [address] [place], [place] [address]Dr. Airam Tripathi Urea nitrogen/Creatinine [Mass ratio] 23.5 mg/mg Normal [facility] Comment on above: Performed By: #### C MP ####[facility] Nbdprqdbas422934 [address] [place], [place] [address]Dr. Airam Tripathi OSMOLALITYon 05-16-2022 Osmolality [Osmolality] 281 mosm/kg Normal 275-295 [facility] Comment on above: Performed By: #### O SMO ####[facility] Jubdfwwxsa24[address] [place] [address]Dr. Airam Tripathi CBC AUTO DIFFon 05-13-2022 BASO # 0.1 103/ul Normal 0.0-0.1 [facility] Comment on above: Performed By: #### C BC ####[facility] Pheckccprn7615[address] [place], [place] [address]Dr. Aiarm Tripathi Basophils/100 WBC (Bld) 0.5 % Normal 0.2-2.0 [facility] Comment on above: Performed By: #### C BC ####[facility] Kvrtdfmszk320934 [address] [place], [place] [address]Dr. Airam Tripathi EO # 0.2 103/ul Normal 0.0-0.7 [facility] Comment on above: Performed By: #### C BC ####[facility] Mrjupxnpgc898434 [address] [place], [place] [address]Dr. Airam Deuce Eosinophils/100 WBC (Bld) 2.1 % Normal 0.9-7.0 [facility] Comment on above: Performed By: #### C BC ####[facility] Cvauldffus728[address] [place], [place] [address]Dr. Airam Tripathi Erythrocyte distribution width (RBC) [Ratio] 12.9 % Normal 11.0-15.0 [facility] Comment on above: Performed By: #### C BC ####[facility] Yhiuevhkuo8825[address] [place], [place] [address]Dr. Airam Tripathi Hematocrit (Bld) [Volume fraction] 31.9 % Critically low 36.0-48.0 [facility] Comment on above: Performed By: #### C BC ####[facility] Oilbvhquzp804[address] [place], [place] [address]Dr. Airam Tripathi Hemoglobin (Bld) [Mass/Vol] 9.7 g/dL Critically low 12.0-16.0 [facility] Comment on above: Performed By: #### C BC ####[facility] Zytrpozdrv5977[address] [place], [place] [address]Dr. Airam Tripathi IG # 0.06 10e3/ul Critically high 0.00-0.03 [facility] Comment on above: Performed By: #### C BC ####[facility] Qvkosevulx8445 [place] [address]Dr. Airam Tripathi IG % 0.7 % Critically high 0.0-0.5 [facility] Comment on above: Performed By: #### C BC ####[facility] Bkgatjulfv5404 [place] [address]Dr. Airam Tripathi LYMPH # 1.9 103/ul Normal 1.2-3.8 [facility] Comment on above: Performed By: #### C BC ####[facility] Ltfgxfbaco7845 [place] [address]Dr. Airam Tripathi Lymphocytes/100 WBC (Bld) 21.1 % Normal 20.5-60.0 [facility] Comment on above: Performed By: #### C BC ####[facility] Upikjlzueq9411[address] [place], [place] [address]Dr. Airam Tripathi MANUAL DIFF REQ NO Normal [facility] Comment on above: Performed By: #### C BC ####[facility] Txbozyyoey[address] [place], [place] [id number]. Airam Tripathi MCH (RBC) [Entitic mass] 29.7 pg Normal 26.7-34.0 [facility] Comment on above: Performed By: #### C BC ####[facility] Ihgzurkoup2272 [place] [address]Dr. Airam Tripathi MCHC (RBC) [Mass/Vol] 30.4 g/dL Normal 29.9-35.2 [facility] Comment on above: Performed By: #### C BC ####[facility] Xuogmdhlwi23[address] [place], [place] [address]Dr. Airam Tripathi MCV (RBC) [Entitic vol] 97.6 fL Normal 81.0-99.0 [facility] Comment on above: Performed By: #### C BC ####[facility] Kxcqrnbvnx6471 [place] [phone]. Airam Tripathi MONO # 0.6 103/ul Normal 0.3-0.8 [facility] Comment on above: Performed By: #### C BC ####[facility] Duknwvenmz1460 [place] [address]Dr. Airam Tripathi Monocytes/100 WBC (Bld) 6.8 % Normal 1.7-12.0 [facility] Comment on above: Performed By: #### C BC ####[facility] Bgsoxipjuv5784 [place] [address]Dr. Airam Tripathi NEUT # 6.3 103/ul Normal 1.4-6.5 [facility] Comment on above: Performed By: #### C BC ####[facility] Zobbshhrus8563 [place] [address]Dr. Airam Tripathi Neutrophils/100 WBC (Bld) 68.8 % Normal 43.0-75.0 [facility] Comment on above: Performed By: #### C BC ####[facility] Jpbtmislex7653 [place] [address]Dr. Airam Tripathi Platelet mean volume (Bld) [Entitic vol] 9.6 fL Normal 9.5-13.5 [facility] Comment on above: Performed By: #### C BC ####[facility] Qtpsrqjkeb1842 [place] [phone]. Airam Tripathi PLT 295 103/ul Normal 150-450 [facility] Comment on above: Performed By: #### C BC ####[facility] Frnktzjqwg8679 [place] [address]Dr. Airam Tripathi RBC 3.27 106/ul Critically low 4.20-5.40 [facility] Comment on above: Performed By: #### C BC ####[facility] Dkalkdgmvt[address] [place], [place] [address]Dr. Airam Tripathi WBC 9.1 103/ul Normal 4.0-11.0 [facility] Comment on above: Performed By: #### C BC ####[facility] Rfneyveohu286[address] [place], [place] [address]Dr. Selenaneil Tripathi PROF 14(COMP METB)on 05-13- 022 Albumin [Mass/Vol] 3.3 g/dL Critically low 3.4-5.0 [facility] Comment on above: Performed By: #### C MP ####[facility] Sbkrpqwqsx4518 [place] [phone]. Airam Tripathi Albumin/Globulin [Mass ratio] 1.0 {ratio} Normal [facility] Comment on above: Performed By: #### C MP ####[facility] Blsxegfitp0593 [place] [phone]. Airam Deuce ALP [Catalytic activity/Vol] 152 U/L Critically high 46-116 [facility] Comment on above: Performed By: #### C MP ####[facility] Vfrjnktqsr5556 [place] [address]Dr. Airam Deuce ALT [Catalytic activity/Vol] 23 U/L Normal 14-59 [facility] Comment on above: Performed By: #### C MP ####[facility] Mzotcifjmy1053 [place] [address]Dr. Airam Tripathi Anion gap [Moles/Vol] 12.0 mmol/L Normal [facility] Comment on above: Performed By: #### C MP ####[facility] Murbfjdpvu1856[address] [place], [place] [address]Dr. Airam Deuce AST [Catalytic activity/Vol] 25 U/L Normal 15-37 [facility] Comment on above: Performed By: #### C MP ####[facility] Ounrtwlbgw5[address] [place], [place] [address]Dr. Airam Tripathi Bilirubin [Mass/Vol] 0.2 mg/dL Normal 0.2-1.0 [facility] Comment on above: Performed By: #### C MP ####[facility] Zbzpdtavsn4452 [place] [address]Dr. Airam Tripathi Calcium [Mass/Vol] 8.2 mg/dL Critically low 8.5-10.1 [facility] Comment on above: Performed By: #### C MP ####[facility] Yvmvlamyut5314 [place] [address]Dr. Airam Tripathi Chloride [Moles/Vol] 100 mmol/L Normal 98-107 [facility] Comment on above: Performed By: #### C MP ####[facility] Izfwxhhkox1476 [place] [phone]. Airam Tripathi CO2 [Moles/Vol] 24.8 mmol/L Normal 21.0-32.0 [facility] Comment on above: Performed By: #### C MP ####[facility] Suktkfhqqz3944 [place] [phone]. Airam Tripathi Creatinine [Mass/Vol] 1.46 mg/dL Critically high 0.55-1.02 [facility] Comment on above: Performed By: #### C MP ####[facility] Mvvsxjcdrw8325 [place] [phone]. Airam Tripathi EGFR-AF [place] 44 mL/min/1.73m2 Critically low >=60 [facility] Comment on above: Performed By: #### C MP ####[facility] Ulqajamjrd1980[address] [place], [place] [address]Dr. Airam Tripathi EGFR-NON AF [place]IZ[place] 37 mL/min/1.73m2 Critically low >=60 [facility] Comment on above: Performed By: #### C MP ####[facility] Hxldmykeii7350 [place] [address]Dr. Airam Tripathi Globulin (S) [Mass/Vol] 3.3 g/dL Normal [facility] Comment on above: Performed By: #### C MP ####[facility] Zhyehalzid7188 [place] [address]Dr. Airam Tripathi Glucose [Mass/Vol] 86 mg/dL Normal 74-106 [facility] Comment on above: Performed By: #### C MP ####[facility] Xlrvakuynu0674 [place] [phone]. Airam Tripathi Potassium [Moles/Vol] 4.8 mmol/L Normal 3.5-5.1 [facility] Comment on above: Performed By: #### C MP ####[facility] Lxnmmaeotn0969 [place] [address]Dr. Airam Tripathi Protein [Mass/Vol] 6.6 g/dL Normal 6.4-8.2 [facility] Comment on above: Performed By: #### C MP ####[facility] Jselkmmzqy3688 [place] [phone]. Airam Tripathi Sodium [Moles/Vol] 132 mmol/L Critically low 136-145 [facility] Comment on above: Performed By: #### C MP ####[facility] Akrcuglqho7851 [place] [address]Dr. Airam Tripathi Urea nitrogen [Mass/Vol] 34.0 mg/dL Critically high 7.0-18.0 [facility] Comment on above: Performed By: #### C MP ####[facility] Kvgucamzho3286 [place] [address]Dr. Airam Tripathi Urea nitrogen/Creatinine [Mass ratio] 23.3 mg/mg Normal [facility] Comment on above: Performed By: #### C MP ####[facility] Hqminycksx4524[address] [place], [place] [address]Dr. Airam Tripathi OSMOLALITYon 05-06-2022 Osmolality [Osmolality] 284 mosm/kg Normal 275-295 [facility] Comment on above: Performed By: #### O SMO ####[facility] Pourtzrzwl0114[address] [place], [place] [address]Dr. Airam Deuce XR LSPINE MIN 4 VIEWSon XR LSPINE MIN 4 VIEWS Normal [facility] CBC AUTO DIFFon 05-03-2022 BASO # 0.1 103/ul Normal 0.0-0.1 [facility] Comment on above: Performed By: #### C BC ####[facility] Ejtckikzqx7707[address] [place], [place] [address]Dr. Airam Deuce Basophils/100 WBC (Bld) 0.6 % Normal 0.2-2.0 [facility] Comment on above: Performed By: #### C BC ####[facility] Cgwdobfiof4246[address] [place], [place] [address]Dr. Airam Tripathi EO # 0.3 103/ul Normal 0.0-0.7 [facility] Comment on above: Performed By: #### C BC ####[facility] Wwwmqgvfie029[address] [place], [place] [address]Dr. Selenaneil Tripathi Eosinophils/100 WBC (Bld) 4.2 % Normal 0.9-7.0 [facility] Comment on above: Performed By: #### C BC ####[facility] Wmtlrurqsp4167[address] [place], [place] [address]DrKianna Tripathi Erythrocyte distribution width (RBC) [Ratio] 13.4 % Normal 11.0-15.0 [facility] Comment on above: Performed By: #### C BC ####[facility] Ndxcyjgvyj9730[address] [place], [place] [address]DrKianna Tripathi Hematocrit (Bld) [Volume fraction] 30.7 % Critically low 36.0-48.0 [facility] Comment on above: Performed By: #### C BC ####[facility] Kwsaqcooyw5279[address] [place], [place] [address]DrKianna Tripathi Hemoglobin (Bld) [Mass/Vol] 9.6 g/dL Critically low 12.0-16.0 [facility] Comment on above: Performed By: #### C BC ####[facility] Qjubuuxrfc55[address] [place], [place] [address]DrKianna Tripathi IG # 0.05 10e3/ul Critically high 0.00-0.03 [facility] Comment on above: Performed By: #### C BC ####[facility] Zvjrtfbzdk1494[address] [place], [place] [address]DrKianna Tripathi IG % 0.6 % Critically high 0.0-0.5 [facility] Comment on above: Performed By: #### C BC ####[facility] Aplunhainp11[address] [place], [place] [address]DrKianna Tripathi LYMPH # 1.9 103/ul Normal 1.2-3.8 [facility] Comment on above: Performed By: #### C BC ####[facility] Rfwzwxvalq35[address] [place], [place] [address]DrKianna Tripathi Lymphocytes/100 WBC (Bld) 23.5 % Normal 20.5-60.0 [facility] Comment on above: Performed By: #### C BC ####[facility] Cypunddvhn217[address] [place], [place] [address]DrKianna Tripathi MANUAL DIFF REQ NO Normal [facility] Comment on above: Performed By: #### C BC ####[facility] F[address] [place] [address]DrKianna Tripathi MCH (RBC) [Entitic mass] 30.8 pg Normal 26.7-34.0 [facility] Comment on above: Performed By: #### C BC ####[facility] Xznrabdytt6026[address] [place], [place] [address]DrKianna Tripathi MCHC (RBC) [Mass/Vol] 31.3 g/dL Normal 29.9-35.2 [facility] Comment on above: Performed By: #### C BC ####[facility] Iuxlfdrvjy3478[address] [place], [place] [address]DrKianna Tripathi MCV (RBC) [Entitic vol] 98.4 fL Normal 81.0-99.0 [facility] Comment on above: Performed By: #### C BC ####[facility] Pqxoorscoz[address] [place], [place] [address]DrKianna Tripathi MONO # 0.6 103/ul Normal 0.3-0.8 [facility] Comment on above: Performed By: #### C BC ####[facility] Yxcqwqqhgg67[address] [place], [place] [address]DrKianna Tripathi Monocytes/100 WBC (Bld) 7.4 % Normal 1.7-12.0 [facility] Comment on above: Performed By: #### C BC ####[facility] Uzkrrnyczr[address] [place], [place] [address]DrKianna Tripathi NEUT # 5.0 103/ul Normal 1.4-6.5 [facility] Comment on above: Performed By: #### C BC ####[facility] Dhervrtnjm4[address] [place], [place] [address]DrKianna Tripathi Neutrophils/100 WBC (Bld) 63.7 % Normal 43.0-75.0 [facility] Comment on above: Performed By: #### C BC ####[facility] Ghntqegzlr3636[address] [place], [place] [address]DrKianna Tripathi Platelet mean volume (Bld) [Entitic vol] 9.5 fL Normal 9.5-13.5 [facility] Comment on above: Performed By: #### C BC ####[facility] [address] [place] [address]Dr. Airam Tripathi PLT 280 103/ul Normal 150-450 [facility] Comment on above: Performed By: #### C BC ####[facility] Ojlepeahoq[address] [place] [address]Dr. Airam Tripathi RBC 3.12 106/ul Critically low 4.20-5.40 [facility] Comment on above: Performed By: #### C BC ####[facility] Coiecvmbie[address] [place] [address]Dr. Airam Tripathi WBC 7.9 103/ul Normal 4.0-11.0 [facility] Comment on above: Performed By: #### C BC ####[facility] Mouqupalrh67[address] [place], [place] [address]DrKianna Tripathi PROF 14(COMP METB)on 022 Albumin [Mass/Vol] 3.1 g/dL Critically low 3.4-5.0 [facility] Comment on above: Performed By: #### C MP ####[facility] Mnxfhevnly106[address] [place], [place] [address]Dr. Airam Tripathi Albumin/Globulin [Mass ratio] 0.9 {ratio} Normal [facility] Comment on above: Performed By: #### C MP ####[facility] Mzztwqasap905534 [address] [place], [place] [address]Dr. Airam Tripathi ALP [Catalytic activity/Vol] 140 U/L Critically high 46-116 [facility] Comment on above: Performed By: #### C MP ####[facility] Nkkoiyfmss3760[address] [place], [place] [address]DrKianna Tripathi ALT [Catalytic activity/Vol] 24 U/L Normal 14-59 [facility] Comment on above: Performed By: #### C MP ####[facility] Jnewkwvudz951434 [address] [place], [place] [address]Dr. Airam Tripathi Anion gap [Moles/Vol] 11.2 mmol/L Normal [facility] Comment on above: Performed By: #### C MP ####[facility] L[address]lkeqyuz[address] [place] [address]Dr. Airam Deuce AST [Catalytic activity/Vol] 26 U/L Normal 15-37 [facility] Comment on above: Performed By: #### C MP ####[facility] Lkzqrezhwa9578[address] [place], [place] [address]Dr. Airam Tripathi Bilirubin [Mass/Vol] 0.2 mg/dL Normal 0.2-1.0 [facility] Comment on above: Performed By: #### C MP ####[facility] Iykfpahbbp665734 [address] [place], [place] [address]Dr. Airam Tripathi Calcium [Mass/Vol] 8.3 mg/dL Critically low 8.5-10.1 [facility] Comment on above: Performed By: #### C MP ####[facility] Culpgioydp148934 [address] [place], [place] [address]Dr. Airam Tripathi Chloride [Moles/Vol] 101 mmol/L Normal 98-107 [facility] Comment on above: Performed By: #### C MP ####[facility] Evisvgnvjv832[address] [place], [place] [address]Dr. Airam Tripathi CO2 [Moles/Vol] 25.5 mmol/L Normal 21.0-32.0 [facility] Comment on above: Performed By: #### C MP ####[facility] Rkmnorhfqg230134 [address] [place], [place] [address]Dr. Airam Tripathi Creatinine [Mass/Vol] 1.43 mg/dL Critically high 0.55-1.02 [facility] Comment on above: Performed By: #### C MP ####[facility] Yhnjsuosoh688[address] [place], [place] [address]Dr. Airam Tripathi EGFR-AF [place]IZ[place] 45 mL/min/1.73m2 Critically low >=60 [facility] Comment on above: Performed By: #### C MP ####[facility] Aqjvvncasm0848[address] [place], [place] [address]Dr. Airam Tripathi EGFR-NON AF CITIZEN OF [place] 37 mL/min/1.73m2 Critically low >=60 [facility] Comment on above: Performed By: #### C MP ####[facility] Zsygxwvbyw[address] [place] [address]Dr. Airam Tripathi Globulin (S) [Mass/Vol] 3.3 g/dL Normal [facility] Comment on above: Performed By: #### C MP ####[facility] Jmgnarryhp[address] [place] [address]Dr. Airam Trpiathi Glucose [Mass/Vol] 74 mg/dL Normal 74-106 [facility] Comment on above: Performed By: #### C MP ####[facility] Whxjwzpsbf490234 [address] [place], [place] [address]Dr. Airam Tripathi Potassium [Moles/Vol] 4.7 mmol/L Normal 3.5-5.1 [facility] Comment on above: Performed By: #### C MP ####[facility] Gvexinfizh368[address] [place], [place] [address]Dr. Airam Tripathi Protein [Mass/Vol] 6.4 g/dL Normal 6.4-8.2 [facility] Comment on above: Performed By: #### C MP ####[facility] Onliadcghz187634 [address] [place], [place] [address]Dr. Airam Tripathi Sodium [Moles/Vol] 133 mmol/L Critically low 136-145 [facility] Comment on above: Performed By: #### C MP ####[facility] Edfglxbpwf003234 [address] [place], [place] [address]Dr. Airam Tripathi Urea nitrogen [Mass/Vol] 38.0 mg/dL Critically high 7.0-18.0 [facility] Comment on above: Performed By: #### C MP ####[facility] Mmnsykdtlm353434 [address] [place], [place] [address]Dr. Airam Tripathi Urea nitrogen/Creatinine [Mass ratio] 26.6 mg/mg Normal [facility] Comment on above: Performed By: #### C MP ####[facility] Swhjzvymbu946434 [address] [place], [place] [address]Dr. Airam Tripathi OSMOLALITYon 04-29-2022 Osmolality [Osmolality] 292 mosm/kg Normal 275-295 [facility] Comment on above: Performed By: #### O SMO ####[facility] Ptkslktmsl[address] [place] [address]Dr. Selenaneil Tripathi CBC AUTO DIFFon 04-28-2022 BASO # 0.0 103/ul Normal 0.0-0.1 [facility] Comment on above: Performed By: #### C BC ####[facility] Wuenmapkty340434 [address] [place], [place] [address]Dr. Airam Tripathi Basophils/100 WBC (Bld) 0.5 % Normal 0.2-2.0 [facility] Comment on above: Performed By: #### C BC ####[facility] Vjucbhkegk5510[address] [place], [place] [address]Dr. Airam Tripathi EO # 0.2 103/ul Normal 0.0-0.7 [facility] Comment on above: Performed By: #### C BC ####[facility] Pzxkrejhhx2756[address] [place], [place] [address]Dr. Airam Tripathi Eosinophils/100 WBC (Bld) 3.4 % Normal 0.9-7.0 [facility] Comment on above: Performed By: #### C BC ####[facility] Zafmngiwvg7850[address] [place], [place] [address]Dr. Airam Tripathi Erythrocyte distribution width (RBC) [Ratio] 13.4 % Normal 11.0-15.0 [facility] Comment on above: Performed By: #### C BC ####[facility] Vzxgvttpzi0496[address] [place], [place] [address]Dr. Airam Tripathi Hematocrit (Bld) [Volume fraction] 31.6 % Critically low 36.0-48.0 [facility] Comment on above: Performed By: #### C BC ####[facility] Hyuatmbuza8227[address] [place], [place] [address]Dr. Airam Tripathi Hemoglobin (Bld) [Mass/Vol] 9.8 g/dL Critically low 12.0-16.0 [facility] Comment on above: Performed By: #### C BC ####[facility] [address]ptwr[address] [place] [address]Dr. Airam Tripathi IG # 0.02 10e3/ul Normal 0.00-0.03 [facility] Comment on above: Performed By: #### C BC ####[facility] Yfatghsqpg[address] [place] [address]DrKianna Airam Deuce IG % 0.3 % Normal 0.0-0.5 [facility] Comment on above: Performed By: #### C BC ####[facility] Kxofhfakmy3715[address] [place], [place] [address]DrKianna Airam Deuce LYMPH # 1.3 103/ul Normal 1.2-3.8 [facility] Comment on above: Performed By: #### C BC ####[facility] Srbfofpmsj7884[address] [place], [place] [address]DrKianna Selenaneil Tripathi Lymphocytes/100 WBC (Bld) 21.7 % Normal 20.5-60.0 [facility] Comment on above: Performed By: #### C BC ####[facility] Cqpdqzsgfe4678[address] [place], [place] [address]DrKianna Selenaneil Tripathi MANUAL DIFF REQ NO Normal [facility] Comment on above: Performed By: #### C BC ####[facility] Ykkblfinzq5036[address] [place], [place] [address]DrKianna Airam Deuce MCH (RBC) [Entitic mass] 30.7 pg Normal 26.7-34.0 [facility] Comment on above: Performed By: #### C BC ####[facility] Lfpumcuyon[address] [place], [place] [address]DrKianna Airam Deuce MCHC (RBC) [Mass/Vol] 31.0 g/dL Normal 29.9-35.2 [facility] Comment on above: Performed By: #### C BC ####[facility] Vgrvullppi4940[address] [place], [place] [address]DrKianna Airam Deuce MCV (RBC) [Entitic vol] 99.1 fL Critically high 81.0-99.0 [facility] Comment on above: Performed By: #### C BC ####[facility] Dedqqqaehg4890[address] [place], [place] [address]Dr. Airam Tripathi MONO # 0.3 103/ul Normal 0.3-0.8 [facility] Comment on above: Performed By: #### C BC ####[facility] [address]uffitlkw[address] [place] [address]Dr. Airam Tripathi Monocytes/100 WBC (Bld) 5.2 % Normal 1.7-12.0 [facility] Comment on above: Performed By: #### C BC ####[facility] Bonfjisghy[address] [place] [address]Dr. Airam Tripathi NEUT # 4.1 103/ul Normal 1.4-6.5 [facility] Comment on above: Performed By: #### C BC ####[facility] F[address]ugwljlom[address] [place] [address]Dr. Airam Tripathi Neutrophils/100 WBC (Bld) 68.9 % Normal 43.0-75.0 [facility] Comment on above: Performed By: #### C BC ####[facility] Vgpegeomqz9[address] [place] [address]Dr. Airam Tripathi Platelet mean volume (Bld) [Entitic vol] 9.8 fL Normal 9.5-13.5 [facility] Comment on above: Performed By: #### C BC ####[facility] Mkgoafbtot[address] [place] [address]Dr. Airam Tripathi PLT 329 103/ul Normal 150-450 [facility] Comment on above: Performed By: #### C BC ####[facility] Tnfgfdjaxx[address] [place] [address]Dr. Airam Tripathi RBC 3.19 106/ul Critically low 4.20-5.40 [facility] Comment on above: Performed By: #### C BC ####[facility] Zlvfiwmjwp35[address] [place] [address]Dr. Airam Deuce WBC 5.9 103/ul Normal 4.0-11.0 [facility] Comment on above: Performed By: #### C BC ####[facility] Sojghvzsnd6917[address] [place], [place] [address]DrKianna Tripathi PROF 14(COMP METB)on 022 Albumin [Mass/Vol] 2.9 g/dL Critically low 3.4-5.0 [facility] Comment on above: Performed By: #### C MP ####[facility] Icihbfelwx081034 [address] [place], [place] [address]Dr. Airam Tripathi Albumin/Globulin [Mass ratio] 0.9 {ratio} Normal [facility] Comment on above: Performed By: #### C MP ####[facility] Wjtpomebou9096[address] [place], [place] [address]Dr. Airam Tripathi ALP [Catalytic activity/Vol] 127 U/L Critically high 46-116 [facility] Comment on above: Performed By: #### C MP ####[facility] Zjhzgzvjvc2637[address] [place], [place] [address]Dr. Airam Tripathi ALT [Catalytic activity/Vol] 22 U/L Normal 14-59 [facility] Comment on above: Performed By: #### C MP ####[facility] Kgcwdklghn666[address] [place], [place] [address]Dr. Airam Tripathi Anion gap [Moles/Vol] 6.7 mmol/L Normal [facility] Comment on above: Performed By: #### C MP ####[facility] Cjbzmqffmm357234 [address] [place], [place] [address]Dr. Airam Tripathi AST [Catalytic activity/Vol] 24 U/L Normal 15-37 [facility] Comment on above: Performed By: #### C MP ####[facility] Zswpmcaugn705[address] [place], [place] [address]Dr. Airam rTipathi Bilirubin [Mass/Vol] 0.2 mg/dL Normal 0.2-1.0 [facility] Comment on above: Performed By: #### C MP ####[facility] Hmjyrnyqfo401[address] [place], [place] [address]Dr. Airam Tripathi Calcium [Mass/Vol] 8.2 mg/dL Critically low 8.5-10.1 [facility] Comment on above: Performed By: #### C MP ####[facility] Acwzrwfxhk3927[address] [place], [place] [address]Dr. Airam Tripathi Chloride [Moles/Vol] 105 mmol/L Normal 98-107 [facility] Comment on above: Performed By: #### C MP ####[facility] Sozjxmrulq864[address] [place], [place] [address]Dr. Airam Tripathi CO2 [Moles/Vol] 28.2 mmol/L Normal 21.0-32.0 [facility] Comment on above: Performed By: #### C MP ####[facility] Szsonpried035[address] [place], [place] [address]Dr. Airam Deuce Creatinine [Mass/Vol] 1.22 mg/dL Critically high 0.55-1.02 [facility] Comment on above: Performed By: #### C MP ####[facility] Zyxztfcrox2939[address] [place], [place] [address]Dr. Airam Deuce EGFR-AF [place] 54 mL/min/1.73m2 Critically low >=60 [facility] Comment on above: Performed By: #### C MP ####[facility] Nvcjcmiowv0839[address] [place], [place] [address]Dr. Airam Deuce EGFR-NON AF [place]IZ[place] 45 mL/min/1.73m2 Critically low >=60 [facility] Comment on above: Performed By: #### C MP ####[facility] Betsumkwux6832[address] [place], [place] [address]Dr. Airam Deuce Globulin (S) [Mass/Vol] 3.2 g/dL Normal [facility] Comment on above: Performed By: #### C MP ####[facility] Xcuqaiqyeh0279[address] [place], [place] [address]Dr. Airam Deuce Glucose [Mass/Vol] 77 mg/dL Normal 74-106 [facility] Comment on above: Performed By: #### C MP ####[facility] Xcykpvlixz378334 [address] [place], [place] [address]Dr. Selenaneil Tripathi Potassium [Moles/Vol] 4.9 mmol/L Normal 3.5-5.1 [facility] Comment on above: Performed By: #### C MP ####[facility] Oestazgcmf3817[address] [place], [place] [address]Dr. Selenaneil Tripathi Protein [Mass/Vol] 6.1 g/dL Critically low 6.4-8.2 [facility] Comment on above: Performed By: #### C MP ####[facility] Djcznvpqec8524[address] [place], [place] [address]DrKianna Airam Deuce Sodium [Moles/Vol] 135 mmol/L Critically low 136-145 [facility] Comment on above: Performed By: #### C MP ####[facility] Ppqrrlwixg4050[address] [place], [place] [address]DrKianna Selenaneil Tripathi Urea nitrogen [Mass/Vol] 30.0 mg/dL Critically high 7.0-18.0 [facility] Comment on above: Performed By: #### C MP ####[facility] Kgfreqzigd6057[address] [place], [place] [address]Dr. Airam Tripathi Urea nitrogen/Creatinine [Mass ratio] 24.6 mg/mg Normal [facility] Comment on above: Performed By: #### C MP ####[facility] Uhfnmotily4825[address] [place], [place] [address]DrKianna Airam Deuce OSMOLALITYon 04-23-2022 Osmolality [Osmolality] 289 mosm/kg Normal 275-295 [facility] Comment on above: Performed By: #### O SMO ####[facility] Xfwtvwnisu7[address] [place], [place] [address]DrKianna Airam Deuce CBC AUTO DIFFon 04-20-2022 BASO # 0.0 103/ul Normal 0.0-0.1 [facility] Comment on above: Performed By: #### C BC ####[facility] Bmgigbgwvw7494[address] [place], [place] [address]Dr. Airam Tripathi Basophils/100 WBC (Bld) 0.4 % Normal 0.2-2.0 [facility] Comment on above: Performed By: #### C BC ####[facility] Gzxagimfoo1850[address] [place], [place] [address]DrKianna Tripathi EO # 0.2 103/ul Normal 0.0-0.7 [facility] Comment on above: Performed By: #### C BC ####[facility] Rwsvuhfmet094934 [address] [place], [place] [address]Dr. Airam Tripathi Eosinophils/100 WBC (Bld) 3.1 % Normal 0.9-7.0 [facility] Comment on above: Performed By: #### C BC ####[facility] Xgfneqibdc5374 [place] [address]Dr. Airam Tripathi Erythrocyte distribution width (RBC) [Ratio] 13.8 % Normal 11.0-15.0 [facility] Comment on above: Performed By: #### C BC ####[facility] Aipkdrnypk889[address] [place], [place] [address]Dr. Airam Tripathi Hematocrit (Bld) [Volume fraction] 29.5 % Critically low 36.0-48.0 [facility] Comment on above: Performed By: #### C BC ####[facility] Wosmvuysxk9767[address] [place], [place] [address]Dr. Airam Tripathi Hemoglobin (Bld) [Mass/Vol] 9.2 g/dL Critically low 12.0-16.0 [facility] Comment on above: Performed By: #### C BC ####[facility] Vnjuqkbkvr3179[address] [place], [place] [address]Dr. Airam Tripathi IG # 0.02 10e3/ul Normal 0.00-0.03 [facility] Comment on above: Performed By: #### C BC ####[facility] Nxztxqklkq7469[address] [place], [place] [address]Dr. Airam Tripathi IG % 0.4 % Normal 0.0-0.5 [facility] Comment on above: Performed By: #### C BC ####[facility] Eopolujuzs5839[address] [place], [place] [address]Dr. Airam Tripathi LYMPH # 0.8 103/ul Critically low 1.2-3.8 [facility] Comment on above: Performed By: #### C BC ####[facility] Bouanxcevz2347[address] [place], [place] [address]Dr. Airam Tripathi Lymphocytes/100 WBC (Bld) 14.0 % Critically low 20.5-60.0 [facility] Comment on above: Performed By: #### C BC ####[facility] [address]spcyzg[address] [place] [address]Dr. Airam Deuce MANUAL DIFF REQ NO Normal [facility] Comment on above: Performed By: #### C BC ####[facility] Xmqgziupve17[address] [place] [address]Dr. Airam Tripathi MCH (RBC) [Entitic mass] 30.4 pg Normal 26.7-34.0 [facility] Comment on above: Performed By: #### C BC ####[facility] Acaitpnuwf18[address] [place] [address]Dr. Airam Deuce MCHC (RBC) [Mass/Vol] 31.2 g/dL Normal 29.9-35.2 [facility] Comment on above: Performed By: #### C BC ####[facility] Njgfefinba9125[address] [place], [place] [address]Dr. Selenaneil Tripathi MCV (RBC) [Entitic vol] 97.4 fL Normal 81.0-99.0 [facility] Comment on above: Performed By: #### C BC ####[facility] Gdgaesvryp3889[address] [place], [place] [address]Dr. Airam Deuce MONO # 0.3 103/ul Normal 0.3-0.8 [facility] Comment on above: Performed By: #### C BC ####[facility] Eelpgrtxis0507[address] [place], [place] [address]Dr. Selenaneil Tripathi Monocytes/100 WBC (Bld) 5.6 % Normal 1.7-12.0 [facility] Comment on above: Performed By: #### C BC ####[facility] Kvnmfvkysw8[address] [place] [address]Dr. Airam Tripathi NEUT # 4.2 103/ul Normal 1.4-6.5 [facility] Comment on above: Performed By: #### C BC ####[facility] Vqbbuvewzw8765[address] [place], [place] [address]Dr. Airam Tripathi Neutrophils/100 WBC (Bld) 76.5 % Critically high 43.0-75.0 [facility] Comment on above: Performed By: #### C BC ####[facility] Iuiagqmjoj16[address] [place] [address]Dr. Selenaneil Deuce Platelet mean volume (Bld) [Entitic vol] 9.4 fL Critically low 9.5-13.5 [facility] Comment on above: Performed By: #### C BC ####[facility] Cudqqxalfe25[address] [place] [address]Dr. Airam Tripathi PLT 250 103/ul Normal 150-450 [facility] Comment on above: Performed By: #### C BC ####[facility] Xepypictgf86[address] [place] [address]Dr. Selenaneil Deuce RBC 3.03 106/ul Critically low 4.20-5.40 [facility] Comment on above: Performed By: #### C BC ####[facility] Ekcqarqzve915[address] [place], [place] [address]Dr. Airam Tripathi WBC 5.5 103/ul Normal 4.0-11.0 [facility] Comment on above: Performed By: #### C BC ####[facility] Zebfocfwbg176[address] [place], [place] [address]Dr. Airam Tripathi PROF 14(COMP METB)on 022 Albumin [Mass/Vol] 2.7 g/dL Critically low 3.4-5.0 [facility] Comment on above: Performed By: #### C MP ####[facility] Iztrvwmkwj6[address] [place], [place] [address]Dr. Airam Tripathi Albumin/Globulin [Mass ratio] 0.9 {ratio} Normal [facility] Comment on above: Performed By: #### C MP ####[facility] [address]ngebsqjut54[address] [place] [address]Dr. Airam Tripathi ALP [Catalytic activity/Vol] 113 U/L Normal 46-116 [facility] Comment on above: Performed By: #### C MP ####[facility] Uorsygguyw987[address] [place], [place] [address]Dr. Airam Tripathi ALT [Catalytic activity/Vol] 20 U/L Normal 14-59 [facility] Comment on above: Performed By: #### C MP ####[facility] Ldisrbvtkn994[address] [place], [place] [address]Dr. Airam Tripathi Anion gap [Moles/Vol] 11.1 mmol/L Normal [facility] Comment on above: Performed By: #### C MP ####[facility] [address] [place] [address]Dr. Airam Tripathi AST [Catalytic activity/Vol] 19 U/L Normal 15-37 [facility] Comment on above: Performed By: #### C MP ####[facility] [address] [place] [address]Dr. Airam Tripathi Bilirubin [Mass/Vol] 0.2 mg/dL Normal 0.2-1.0 [facility] Comment on above: Performed By: #### C MP ####[facility] Maliyolczi[address] [place] [address]Dr. Airam Tripathi Calcium [Mass/Vol] 8.3 mg/dL Critically low 8.5-10.1 [facility] Comment on above: Performed By: #### C MP ####[facility] Syprrqhwhu[address] [place], [place] [address]Dr. Airam Deuce Chloride [Moles/Vol] 104 mmol/L Normal 98-107 [facility] Comment on above: Performed By: #### C MP ####[facility] Dtkzsakpiq[address] [place], [place] [address]Dr. Airam Tripathi CO2 [Moles/Vol] 25.3 mmol/L Normal 21.0-32.0 [facility] Comment on above: Performed By: #### C MP ####[facility] Kwvberkxgx480[address] [place], [place] [address]Dr. Airam Deuce Creatinine [Mass/Vol] 1.33 mg/dL Critically high 0.55-1.02 [facility] Comment on above: Performed By: #### C MP ####[facility] Omytmyznkv8177[address] [place], [place] [address]Dr. Airam Deuce EGFR-AF [place]IZ[place] 49 mL/min/1.73m2 Critically low >=60 [facility] Comment on above: Performed By: #### C MP ####[facility] Llrgxghpff[address] [place], [place] [address]Dr. Airam Tripathi EGFR-NON AF CITIZEN OF [place] 41 mL/min/1.73m2 Critically low >=60 [facility] Comment on above: Performed By: #### C MP ####[facility] Jyr[address]dvzg[address] [place] [address]Dr. Airam Tripathi Globulin (S) [Mass/Vol] 3.1 g/dL Normal [facility] Comment on above: Performed By: #### C MP ####[facility] Fujstkwvuo58[address] [place] [address]Dr. Airam Tripathi Glucose [Mass/Vol] 88 mg/dL Normal 74-106 [facility] Comment on above: Performed By: #### C MP ####[facility] Rdxueoykry8[address] [place] [address]Dr. Airam Tripathi Potassium [Moles/Vol] 5.4 mmol/L Critically high 3.5-5.1 [facility] Comment on above: Performed By: #### C MP ####[facility] Ytafsseqqm04[address] [place] [address]Dr. Airam Tripathi Protein [Mass/Vol] 5.8 g/dL Critically low 6.4-8.2 [facility] Comment on above: Performed By: #### C MP ####[facility] Zqmlayqwgc14[address] [place] [address]Dr. Airam Tripathi Sodium [Moles/Vol] 135 mmol/L Critically low 136-145 [facility] Comment on above: Performed By: #### C MP ####[facility] Uqaegygorm12[address] [place] [address]Dr. Airam Deuce Urea nitrogen [Mass/Vol] 38.0 mg/dL Critically high 7.0-18.0 [facility] Comment on above: Performed By: #### C MP ####[facility] Qvozlfxnbd37[address] [place], [place] [address]Dr. Airam Tripathi Urea nitrogen/Creatinine [Mass ratio] 28.6 mg/mg Normal [facility] Comment on above: Performed By: #### C MP ####[facility] Gqxpuxfrcb4[address] [place] [address]Dr. Airam Tripathi OSMOLALITYon 04-15-2022 Osmolality [Osmolality] 284 mosm/kg Normal 275-295 [facility] Comment on above: Performed By: #### O SMO ####[facility] Uvqxlahwer[address] [place] [address]Dr. Airam Tripathi CBC AUTO DIFFon 04-14-2022 BASO # 0.0 103/ul Normal 0.0-0.1 [facility] Comment on above: Performed By: #### C BC ####[facility] Mnncangmzi[address] [place] [address]Dr. Airam Tripathi Basophils/100 WBC (Bld) 0.5 % Normal 0.2-2.0 [facility] Comment on above: Performed By: #### C BC ####[facility] Xrkrfqxqgo7384 [place] [address]Dr. Airam Tripathi EO # 0.3 103/ul Normal 0.0-0.7 [facility] Comment on above: Performed By: #### C BC ####[facility] Coljbwyqjp898[address] [place], [place] [address]Dr. Airam Tripathi Eosinophils/100 WBC (Bld) 3.6 % Normal 0.9-7.0 [facility] Comment on above: Performed By: #### C BC ####[facility] Lqyxgxgfsd4[address] [place] [address]Dr. Airam Tripathi Erythrocyte distribution width (RBC) [Ratio] 13.4 % Normal 11.0-15.0 [facility] Comment on above: Performed By: #### C BC ####[facility] Zmezulbbfa9[address] [place] [address]Dr. Airam Tripathi Hematocrit (Bld) [Volume fraction] 30.6 % Critically low 36.0-48.0 [facility] Comment on above: Performed By: #### C BC ####[facility] Zsuwkmzelw06[address] [place] [address]Dr. Airam Tripathi Hemoglobin (Bld) [Mass/Vol] 9.7 g/dL Critically low 12.0-16.0 [facility] Comment on above: Performed By: #### C BC ####[facility] Qxhtbssdhs35[address] [place] [phone]. Airam Tripathi IG # 0.08 10e3/ul Critically high 0.00-0.03 [facility] Comment on above: Performed By: #### C BC ####[facility] Vstybcjayw6097 [place] [address]Dr. Airam Tripathi IG % 0.9 % Critically high 0.0-0.5 [facility] Comment on above: Performed By: #### C BC ####[facility] Wpliheaenp5370 [place] [address]Dr. Airam Tripathi LYMPH # 2.1 103/ul Normal 1.2-3.8 [facility] Comment on above: Performed By: #### C BC ####[facility] Veathgyvtd84[address] [place], [place] [address]Dr. Selenaneil Tripathi Lymphocytes/100 WBC (Bld) 24.2 % Normal 20.5-60.0 [facility] Comment on above: Performed By: #### C BC ####[facility] Tljcuigzat77[address] [place], [place] [address]Dr. Airam Tripathi MANUAL DIFF REQ NO Normal [facility] Comment on above: Performed By: #### C BC ####[facility] Bsnfmrkokr20[address] [place], [place] [address]Dr. Airam Tripathi MCH (RBC) [Entitic mass] 30.4 pg Normal 26.7-34.0 [facility] Comment on above: Performed By: #### C BC ####[facility] Ojvnoxiefn280[address] [place], [place] [address]Dr. Airam Tripathi MCHC (RBC) [Mass/Vol] 31.7 g/dL Normal 29.9-35.2 [facility] Comment on above: Performed By: #### C BC ####[facility] Wbcuwjiteo0687 [place] [address]Dr. Airam Tripathi MCV (RBC) [Entitic vol] 95.9 fL Normal 81.0-99.0 [facility] Comment on above: Performed By: #### C BC ####[facility] Ddjkchwgxp1883 [place] [phone]. Airam Tripathi MONO # 0.5 103/ul Normal 0.3-0.8 [facility] Comment on above: Performed By: #### C BC ####[facility] Lixypmyckm9431 [place] [address]Dr. Airam Tripathi Monocytes/100 WBC (Bld) 6.0 % Normal 1.7-12.0 [facility] Comment on above: Performed By: #### C BC ####[facility] Qcjvdvkfco1346 [place] [address]Dr. Airam Tripathi NEUT # 5.6 103/ul Normal 1.4-6.5 [facility] Comment on above: Performed By: #### C BC ####[facility] Lexgewzcno8991 [place] [address]Dr. Airam Tripathi Neutrophils/100 WBC (Bld) 64.8 % Normal 43.0-75.0 [facility] Comment on above: Performed By: #### C BC ####[facility] Kihnmdgdgm05[address] [place] [phone]. Airam Tripathi Platelet mean volume (Bld) [Entitic vol] 9.2 fL Critically low 9.5-13.5 [facility] Comment on above: Performed By: #### C BC ####[facility] Nhsigqsmsa9394 [place] [address]Dr. Airam Tripathi PLT 296 103/ul Normal 150-450 [facility] Comment on above: Performed By: #### C BC ####[facility] Ktysyewszd4328 [place] [address]Dr. Airam Tripathi RBC 3.19 106/ul Critically low 4.20-5.40 [facility] Comment on above: Performed By: #### C BC ####[facility] Pezaynewkx5455 [place] [address]Dr. Airam Tripathi WBC 8.6 103/ul Normal 4.0-11.0 [facility] Comment on above: Performed By: #### C BC ####[facility] Upvigtzsue7[address] [place], [place] [address]Dr. Airam Tripathi PROF 14(COMP METB)on 04-14- 022 Albumin [Mass/Vol] 3.2 g/dL Critically low 3.4-5.0 [facility] Comment on above: Performed By: #### C MP ####[facility] Eizkwhayxl7198[address] [place], [place] [address]Dr. Airam Tripathi Albumin/Globulin [Mass ratio] 1.0 {ratio} Normal [facility] Comment on above: Performed By: #### C MP ####[facility] Plsfhrsoue6733[address] [place], [place] [address]Dr. Airam Tripathi ALP [Catalytic activity/Vol] 126 U/L Critically high 46-116 [facility] Comment on above: Performed By: #### C MP ####[facility] Ocusibsejl096434 [address] [place], [place] [address]Dr. Airam Tripathi ALT [Catalytic activity/Vol] 27 U/L Normal 14-59 [facility] Comment on above: Performed By: #### C MP ####[facility] Gwgwqqzlvv3837[address] [place], [place] [address]Dr. Airam Tripathi Anion gap [Moles/Vol] 9.6 mmol/L Normal [facility] Comment on above: Performed By: #### C MP ####[facility] Zqbwjkrxgt32[address] [place], [place] [address]Dr. Airam Tripathi AST [Catalytic activity/Vol] 25 U/L Normal 15-37 [facility] Comment on above: Performed By: #### C MP ####[facility] Bipemayryy59[address] [place], [place] [address]Dr. Airam Tripathi Bilirubin [Mass/Vol] 0.3 mg/dL Normal 0.2-1.0 [facility] Comment on above: Performed By: #### C MP ####[facility] Wbtmukflva722634 [address] [place], [place] [address]Dr. Airam Tripathi Calcium [Mass/Vol] 8.1 mg/dL Critically low 8.5-10.1 [facility] Comment on above: Performed By: #### C MP ####[facility] Zlqeafpqsa4271 [place] [phone]. Airam Tripathi Chloride [Moles/Vol] 100 mmol/L Normal 98-107 [facility] Comment on above: Performed By: #### C MP ####[facility] Tibdobxhco56[address] [place] [address]Dr. Airam Tripathi CO2 [Moles/Vol] 26.5 mmol/L Normal 21.0-32.0 [facility] Comment on above: Performed By: #### C MP ####[facility] Gbylayxwnm4162 [place] [address]Dr. Airam Tripathi Creatinine [Mass/Vol] 1.52 mg/dL Critically high 0.55-1.02 [facility] Comment on above: Performed By: #### C MP ####[facility] Akfbqggiwl2117[address] [place], [place] [address]Dr. Airam Deuce EGFR-AF [place]IZ[place] 42 mL/min/1.73m2 Critically low >=60 [facility] Comment on above: Performed By: #### C MP ####[facility] Ssxhbqguvv7206[address] [place], [place] [address]Dr. Airam Tripathi EGFR-NON AF [place]IZ[place] 35 mL/min/1.73m2 Critically low >=60 [facility] Comment on above: Performed By: #### C MP ####[facility] Hgwlzqphiz7[address] [place] [address]Dr. Airam Tripathi Globulin (S) [Mass/Vol] 3.3 g/dL Normal [facility] Comment on above: Performed By: #### C MP ####[facility] Ialxknljxd7708 [place] [address]Dr. Airam Tripathi Glucose [Mass/Vol] 75 mg/dL Normal 74-106 [facility] Comment on above: Performed By: #### C MP ####[facility] Wffwgpwmla9[address] [place], [place] [address]Dr. Airam Tripathi Potassium [Moles/Vol] 4.1 mmol/L Normal 3.5-5.1 [facility] Comment on above: Performed By: #### C MP ####[facility] Dgfcfvbgqm613[address] [place], [place] [address]Dr. Airam Deuce Protein [Mass/Vol] 6.5 g/dL Normal 6.4-8.2 [facility] Comment on above: Performed By: #### C MP ####[facility] Plcwfymjzy617034 [address] [place], [place] [address]Dr. Selenaneil Tripathi Sodium [Moles/Vol] 132 mmol/L Critically low 136-145 [facility] Comment on above: Performed By: #### C MP ####[facility] Emdkupmivt368234 [address] [place], [place] [address]Dr. Airam Tripathi Urea nitrogen [Mass/Vol] 40.0 mg/dL Critically high 7.0-18.0 [facility] Comment on above: Performed By: #### C MP ####[facility] Qmjtxtdiuc400434 [address] [place], [place] [address]Dr. Airam Tripathi Urea nitrogen/Creatinine [Mass ratio] 26.3 mg/mg Normal [facility] Comment on above: Performed By: #### C MP ####[facility] Tmmqxaplxn019[address] [place], [place] [address]Dr. Selenaneil Tripathi OSMOLALITYon 04-10-2022 Osmolality [Osmolality] 280 mosm/kg Normal 275-295 [facility] Comment on above: Performed By: #### O SMO ####[facility] Unjshqleiz3820[address] [place], [place] [address]Dr. Selenaneil Tripathi PTH INTACTon 04-09-2022 PTH, Intact 89 pg/mL Critically high 15-65 [facility] Comment on above: Performed By: #### P THINT ####[facility] Fqxwdmbezl[address] [place], [place] [address]Dr. Airam Tripathi CBC W MANUAL DIFFon 04-08-20 22 ATYPICAL LYMPH # Normal [facility] Comment on above: Performed By: #### C BCMAN ####[facility] Itpkkplyfi254934 [address] [place], [place] [address]Dr. Airam Tripathi ATYPICAL LYMPH % Normal [facility] Comment on above: Performed By: #### C BCMAN ####[facility] Coquaggjsw529934 [address] [place], [place] [address]Dr. Yilan Tripathi BAND # Normal 0.0-0.3 [facility] Comment on above: Performed By: #### C BCMAN ####[facility] Jzxtdayvlm3403 [place] [address]Dr. Yilan Tripathi BAND % Normal 0-5 [facility] Comment on above: Performed By: #### C BCMAN ####[facility] Icpiavokcm2963 [place] [address]Dr. Yilan Tripathi BASOM # 0.00 103/ul Normal 0.00-0.10 [facility] Comment on above: Performed By: #### C BCMAN ####[facility] Qkxsugglak9513 [place] [address]Dr. Yilan Tripathi BASOM % 0.0 % Critically low 0.2-2.0 [facility] Comment on above: Performed By: #### C BCMAN ####[facility] Tzpmhbemsy4860[address] [place], [place] [address]Dr. Yilan Tripathi BLAST # Normal [facility] Comment on above: Performed By: #### C BCGERALDINE ####[facility] Rssercctjf0025[address] [place], [place] [address]Dr. Yilan Tripathi BLAST % Normal [facility] Comment on above: Performed By: #### C BCMAN ####[facility] Zogvfxpkrg5676[address] [place], [place] [address]Dr. Yineil Tripathi CORRECTED WBC Normal 4.0-11.0 [facility] Comment on above: Performed By: #### C BCMAN ####[facility] Czgxxrvfom3278 [place] [address]Dr. Yilan Tripathi EOS # 0.00 103/ul Normal 0.00-0.70 [facility] Comment on above: Performed By: #### C BCMAN ####[facility] Yiqgohiezp89[address] [place], [place] [address]Dr. Yilan Tripathi EOS% 0.0 % Critically low 0.9-7.0 [facility] Comment on above: Performed By: #### C BCMAN ####[facility] Ucofgnewfe35[address] [place], [place] [address]Dr. Airam Tripathi HCT 29.7 % Critically low 36.0-48.0 [facility] Comment on above: Performed By: #### C CHRISTEN ####[facility] Itrzjbullp2210 [place] [phone]. Airam Tripathi HGB 9.5 g/dl Critically low 12.0-16.0 [facility] Comment on above: Performed By: #### C CHRISTEN ####[facility] Qtcosjrlji1527 [place] [address]Dr. Airam Tripathi LYMPHM # 0.42 103/ul Critically low 1.20-3.80 [facility] Comment on above: Performed By: #### C CHRISTEN ####[facility] Zzvcfjrwbp9544 [place] [address]Dr. Airam Tripathi LYMPHM% 7.0 % Critically low 20.5-60.0 [facility] Comment on above: Performed By: #### Jodee VELÁSQUEZ ####[facility] Rgbnuejfoc6421 [place] [address]Dr. Airam Tripathi MCH 30.9 pg Normal 26.7-34.0 [facility] Comment on above: Performed By: #### Jodee VELÁSQUEZ ####[facility] Unspwljqys3352 [place] [address]Dr. Airam Tripathi MCHC 32.0 g/dl Normal 29.9-35.2 [facility] Comment on above: Performed By: #### Jodee VELÁSQUEZ ####[facility] Xamiyqbsyt0175 [place] [address]Dr. Airam Tripathi MCV 96.7 fL Normal 81.0-99.0 [facility] Comment on above: Performed By: #### Jodee VELÁSQUEZ ####[facility] Qtnwbbypuk8110 [place] [address]Dr. Airam Tripathi METAMYELOCYTE # Normal [facility] Comment on above: Performed By: #### C CHRISTEN ####[facility] Cdzmzapysd6718 [place] [address]Dr. Airam Tripathi METAMYELOCYTE % Normal [facility] Comment on above: Performed By: #### Jodee VELÁSQUEZ ####[facility] Jdxtogqkxv5393 [place] [phone]. Airam Tripathi MONOM# 0.36 103/ul Normal 0.30-0.80 [facility] Comment on above: Performed By: #### C CHRISTEN ####[facility] Dfbhykxvzj7136 [place] [address]Dr. Airam Tripathi MONOM% 6.0 % Normal 1.7-12.0 [facility] Comment on above: Performed By: #### C CHRISTEN ####[facility] Htihnbjcop9991 [place] [address]Dr. Airam Tripathi MPV 9.5 fL Normal 9.5-13.5 [facility] Comment on above: Performed By: #### C CHRISTEN ####[facility] Sccwhabiym2815 [place] [address]Dr. Airam Tripathi MYELOCYTE # Normal [facility] Comment on above: Performed By: #### Jodee VELÁSQUEZ ####[facility] Frhizoeeof4371 [place] [address]Dr. Aiarm Tripathi MYELOCYTE % Normal [facility] Comment on above: Performed By: #### Jodee VELÁSQUEZ ####[facility] Sxpdjyxp[address] [place], [place] [id number]. Airam Tripathi NRBC Normal [facility] Comment on above: Performed By: #### Jodee VELÁSQUEZ ####[facility] Vqnsehytro0177 [place] [phone]. Airam Tripathi PLT 185 103/ul Normal 150-450 [facility] Comment on above: Performed By: #### C CHRISTEN ####[facility] Allxswbaik7866 [place] [address]Dr. Airam Tripathi RBC 3.07 106/ul Critically low 4.20-5.40 [facility] Comment on above: Performed By: #### C CHRISTEN ####[facility] Ffaavevxje9055 [place] [address]Dr. Airam Tripathi RDW 13.6 % Normal 11.0-15.0 [facility] Comment on above: Performed By: #### C BCMAN ####[facility] Deojfhvbcx9778 [place] [address]Dr. Airam Tripathi SEG # 5.22 103/ul Normal 1.40-6.50 [facility] Comment on above: Performed By: #### C CONNIEMAN ####[facility] Evizjeurai1518 [place] [address]Dr. Airam Tripathi SEG % 87.0 % Critically high 43.0-75.0 [facility] Comment on above: Performed By: #### C CONNIEMAN ####[facility] Nfwpgadgrn5640 [place] [address]Dr. Selenaneil Deuce WBC 6.0 103/ul Normal 4.0-11.0 [facility] Comment on above: Performed By: #### C CHRISTEN ####[facility] Pdwwlgtybl5122 [place] [phone]. Airam Tripathi FREE THYROXINE INDEX T7on FTI 1.57 Normal 1.30-4.50 [facility] Comment on above: Performed By: #### T 7, TSH, CMP ####[facility] Extewehffv0849 [place] [address]Dr. Airam Tripathi T3U 32.0 % Normal 30.0-39.0 [facility] Comment on above: Performed By: #### T 7, TSH, CMP ####[facility] Zqcrarezsv9417 [place] [address]Dr. Airam Tripathi T4 [Mass/Vol] 4.90 ug/dL Normal 4.80-13.90 [facility] Comment on above: Performed By: #### T 7, TSH, CMP ####[facility] Yznmesttsj8392 [place] [phone]. Airam Tripathi PROF 14(COMP METB)on 022 Albumin [Mass/Vol] 3.0 g/dL Critically low 3.4-5.0 [facility] Comment on above: Performed By: #### T 7, TSH, CMP ####[facility] Enfgquiqba4528 [place] [phone]. Airam Tripathi Albumin/Globulin [Mass ratio] 1.0 {ratio} Normal [facility] Comment on above: Performed By: #### T 7, TSH, CMP ####[facility] Rnqvhblhuv98[address] [place], [place] [address]Dr. Airam Deuce ALP [Catalytic activity/Vol] 106 U/L Normal 46-116 [facility] Comment on above: Performed By: #### T 7, TSH, CMP ####[facility] Fphwfqesmq941834 [address] [place], [place] [address]Dr. Airam Tripathi ALT [Catalytic activity/Vol] 20 U/L Normal 14-59 [facility] Comment on above: Performed By: #### T 7, TSH, CMP ####[facility] Wbjeusuvtc8808[address] [place], [place] [address]Dr. Airam Tripathi Anion gap [Moles/Vol] 10.8 mmol/L Normal [facility] Comment on above: Performed By: #### T 7, TSH, CMP ####[facility] Cemmxmaqow7090[address] [place], [place] [address]Dr. Airam Tripathi AST [Catalytic activity/Vol] 19 U/L Normal 15-37 [facility] Comment on above: Performed By: #### T 7, TSH, CMP ####[facility] Wcdqchhxdh110[address] [place], [place] [address]Dr. Airam Tripathi Bilirubin [Mass/Vol] 0.3 mg/dL Normal 0.2-1.0 [facility] Comment on above: Performed By: #### T 7, TSH, CMP ####[facility] Lwbtmpkgin0449[address] [place], [place] [address]Dr. Airam Tripathi Calcium [Mass/Vol] 8.0 mg/dL Critically low 8.5-10.1 [facility] Comment on above: Performed By: #### T 7, TSH, CMP ####[facility] Fngvjhpxhg3829[address] [place], [place] [address]Dr. Airam Tripathi Chloride [Moles/Vol] 100 mmol/L Normal 98-107 [facility] Comment on above: Performed By: #### T 7, TSH, CMP ####[facility] Scespcmmhx2908 [place] [address]Dr. Selenaneil Tripathi CO2 [Moles/Vol] 24.3 mmol/L Normal 21.0-32.0 [facility] Comment on above: Performed By: #### T 7, TSH, CMP ####[facility] Nypydbihub5[address] [place], [place] [address]Dr. Airam Tripathi Creatinine [Mass/Vol] 1.12 mg/dL Critically high 0.55-1.02 [facility] Comment on above: Performed By: #### T 7, TSH, CMP ####[facility] Fvtjbmzxnd04[address] [place], [place] [address]Dr. Airam Deuce EGFR-AF [place]IZ[place] 60 mL/min/1.73m2 Normal >=60 [facility] Comment on above: Performed By: #### T 7, TSH, CMP ####[facility] Mzrxtswxvv183634 [address] [place], [place] [address]Dr. Airam Tripathi EGFR-NON AF CITIZEN OF [place] 50 mL/min/1.73m2 Critically low >=60 [facility] Comment on above: Performed By: #### T 7, TSH, CMP ####[facility] Fziiybkunz[address] [place], [place] [address]Dr. Selenaneil Tripathi Globulin (S) [Mass/Vol] 3.0 g/dL Normal [facility] Comment on above: Performed By: #### T 7, TSH, CMP ####[facility] Pyqbusigxb3255[address] [place], [place] [address]Dr. Airam Tripathi Glucose [Mass/Vol] 76 mg/dL Normal 74-106 [facility] Comment on above: Performed By: #### T 7, TSH, CMP ####[facility] Cldlcycgxz476[address] [place], [place] [address]Dr. Airam Tripathi Potassium [Moles/Vol] 4.1 mmol/L Normal 3.5-5.1 [facility] Comment on above: Performed By: #### T 7, TSH, CMP ####[facility] Fgmfgdhcim[address] [place], [place] [address]Dr. Airam Tripathi Protein [Mass/Vol] 6.0 g/dL Critically low 6.4-8.2 [facility] Comment on above: Performed By: #### T 7, TSH, CMP ####[facility] Edyidvmpmc20[address] [place], [place] [address]Dr. Airam Tripathi Sodium [Moles/Vol] 131 mmol/L Critically low 136-145 [facility] Comment on above: Performed By: #### T 7, TSH, CMP ####[facility] Qlsuyqjmmv23[address] [place], [place] [address]Dr. Airam Tripathi Urea nitrogen [Mass/Vol] 32.0 mg/dL Critically high 7.0-18.0 [facility] Comment on above: Performed By: #### T 7, TSH, CMP ####[facility] Oxzcqvzgaj4450[address] [place], [place] [address]Dr. Airam Tripathi Urea nitrogen/Creatinine [Mass ratio] 28.6 mg/mg Normal [facility] Comment on above: Performed By: #### T 7, TSH, CMP ####[facility] Rvdsdzifgz7922[address] [place], [place] [address]Dr. Airam Tripathi TSHon 04-08-2022 TSH 0.027 uIU/mL Critically low 0.358-3.740 [facility] Comment on above: Performed By: #### T 7, TSH, CMP ####[facility] Cktgxhapjb3614[address] [place], [place] [address]Dr. Airam Tripathi UA RANDOMon 04-08-2022 Bilirubin Ql (U) Negative Normal NEGATIVE [facility] Comment on above: Performed By: #### U A ####[facility] Gchjqlmiau0707[address] [place], [place] [address]Dr. Airam Tripathi Clarity (U) CLEAR Normal CLEAR [facility] Comment on above: Performed By: #### U A ####[facility] Vqdzhgolic2110[address] [place], [place] [address]Dr. Airam Tripathi Color (U) LT. YELLOW Normal YELLOW [facility] Comment on above: Performed By: #### U A ####[facility] Zcdrsrobql8884[address] [place], [place] [address]Dr. Airam Tripathi Glucose Ql (U) Negative Normal NEGATIVE [facility] Comment on above: Performed By: #### U A ####[facility] [address] [place] [address]Dr. Airam Tripathi Hemoglobin Ql (U) Negative Normal NEGATIVE [facility] Comment on above: Performed By: #### U A ####[facility] L[address]vzleqnk65[address] [place] [address]Dr. Airam Tripathi Ketones Ql (U) Negative Normal NEGATIVE [facility] Comment on above: Performed By: #### U A ####[facility] Bbafnaqiqa961134 [address] [place], [place] [address]Dr. Airam Tripathi LEUKOCYTES Negative Normal NEGATIVE [facility] Comment on above: Performed By: #### U A ####[facility] Adbjgimdpd160834 [address] [place], [place] [address]Dr. Airam Tripathi Nitrite Ql (U) Negative Normal NEGATIVE [facility] Comment on above: Performed By: #### U A ####[facility] Ddjgmszujo394534 [address] [place], [place] [address]Dr. Airam Tripathi pH (U) 6.0 [pH] Normal 5-9 [facility] Comment on above: Performed By: #### U A ####[facility] Mcsvntvnrn219634 [address] [place], [place] [address]Dr. Airam Tripathi SPEC GRAVITY 1.010 Normal 1.005-<=1.02 5 [facility] Comment on above: Performed By: #### U A ####[facility] Lxiekyydtk752034 [address] [place], [place] [address]Dr. Airam Tripathi UA PROTEIN Negative Normal NEGATIVE/ TRACE [facility] Comment on above: Performed By: #### U A ####[facility] Tuxvopgtkm105234 [address] [place], [place] [address]Dr. Airam Tripathi Urobilinogen Qn (U) 0.2 {Ligia'U}/dL Normal 0.2 - 1. 0 [facility] Comment on above: Performed By: #### U A ####[facility] Avizohwnbn555734 [address] [place], [place] [address]Dr. Airam Tripathi URINE T PROTEIN CREAT RATIOo n 04-08-2022 UR PROT CREAT RAT 0.32 Normal [facility] Comment on above: Performed By: #### U RTPCR ####[facility] [address]var[address] [place] [address]Dr. Airam Tripathi UR TOTAL PROTEIN <6.0 Normal <=12.0 [facility] Comment on above: Performed By: #### U RTPCR ####[facility] Ebqayqltzg285934 [address] [place], [place] [address]Dr. Airam Tripathi URINE CREAT 18.75 mg/dL Critically low 20.00-300.00 [facility] Comment on above: Performed By: #### U RTPCR ####[facility] Gwinkzrmuc4315[address] [place], [place] [address]Dr. Airam Tripathi FERRITINon 04-06-2022 Ferritin [Mass/Vol] 99.0 ng/mL Normal 8.0-252.0 [facility] Comment on above: Performed By: #### F ETIBC, VITAD, FERR ####[facility] Stvckyxmbx873[address] [place], [place] [address]Dr. Airam Tripathi IRON AND TIBCon 04-06-2022 % SATURATION 15.4 % Normal [facility] Comment on above: Performed By: #### F ETIBC, VITAD, FERR ####[facility] Vrwgynxrsr6056[address] [place], [place] [address]Dr. Airam Tripathi Iron [Mass/Vol] 43.0 ug/dL Critically low 50.0-170.0 [facility] Comment on above: Performed By: #### F ETIBC, VITAD, FERR ####[facility] Hjangvtusc5423[address] [place], [place] [address]Dr. Airam Tripathi TIBC DIRECT 280.0 ug/dL Normal 250.0-450.0 [facility] Comment on above: Performed By: #### F ETIBC, VITAD, FERR ####[facility] Qdnvjdkrme999434 [address] [place], [place] [address]Dr. Airam Tripathi PROF 14(COMP METB)on Albumin [Mass/Vol] 3.2 g/dL Critically low 3.4-5.0 [facility] Comment on above: Performed By: #### C MP, URIC ####[facility] [address] [place] [id number]. Airam Tripathi Albumin/Globulin [Mass ratio] 1.0 {ratio} Normal [facility] Comment on above: Performed By: #### C MP, URIC ####[facility] S[address] [place] [id number]. Airam Tripathi ALP [Catalytic activity/Vol] 118 U/L Critically high 46-116 [facility] Comment on above: Performed By: #### C MP, URIC ####[facility] O[address]zwpnsmf[address] [place] [address]Dr. Airam Tripathi ALT [Catalytic activity/Vol] 24 U/L Normal 14-59 [facility] Comment on above: Performed By: #### C MP, URIC ####[facility] Psufisteux[address] [place] [address]Dr. Airam Tripathi Anion gap [Moles/Vol] 14.4 mmol/L Normal [facility] Comment on above: Performed By: #### C MP, URIC ####[facility] [address]yeuuuqu[address] [place] [address]Dr. Airam Tripathi AST [Catalytic activity/Vol] 21 U/L Normal 15-37 [facility] Comment on above: Performed By: #### C MP, URIC ####[facility] [address]revk[address] [place] [address]Dr. Airam Tripathi Bilirubin [Mass/Vol] 0.3 mg/dL Normal 0.2-1.0 [facility] Comment on above: Performed By: #### C MP, URIC ####[facility] W[address]oykcm264[address] [place] [id number]. Airam Tripathi Calcium [Mass/Vol] 8.0 mg/dL Critically low 8.5-10.1 [facility] Comment on above: Performed By: #### C MP, URIC ####[facility] J[address]ibgf[address] [place] [address]Dr. Airam Tripathi Chloride [Moles/Vol] 98 mmol/L Normal 98-107 [facility] Comment on above: Performed By: #### C MP, URIC ####[facility] X[address]xz[address]o25[address] [place] [address]Dr. Airam Tripathi CO2 [Moles/Vol] 22.0 mmol/L Normal 21.0-32.0 [facility] Comment on above: Performed By: #### C MP, URIC ####[facility] Zwnruumbhm[address] [place] [address]Dr. Airam Deuce Creatinine [Mass/Vol] 1.86 mg/dL Critically high 0.55-1.02 [facility] Comment on above: Performed By: #### C MP, URIC ####[facility] Xyhlpklcas5513[address] [place], [place] [address]Dr. Airam Deuce EGFR-AF [place]IZ[place] 33 mL/min/1.73m2 Critically low >=60 [facility] Comment on above: Performed By: #### C MP, URIC ####[facility] Pomkaomtwu094[address] [place], [place] [address]Dr. Selenaneil Tripathi EGFR-NON AF [place]IZ[place] 28 mL/min/1.73m2 Critically low >=60 [facility] Comment on above: Performed By: #### C MP, URIC ####[facility] Lrpcahkmlc473934 [address] [place], [place] [address]Dr. Airam Deuce Globulin (S) [Mass/Vol] 3.1 g/dL Normal [facility] Comment on above: Performed By: #### C MP, URIC ####[facility] Aueiwjudiw830934 [address] [place], [place] [address]Dr. Selenaneil Tripathi Glucose [Mass/Vol] 93 mg/dL Normal 74-106 [facility] Comment on above: Performed By: #### C MP, URIC ####[facility] Wwwyuvuppa933234 [address] [place], [place] [address]Dr. Airam Tripathi Potassium [Moles/Vol] 4.4 mmol/L Normal 3.5-5.1 [facility] Comment on above: Performed By: #### C MP, URIC ####[facility] Fdqobqdghw870434 [address] [place], [place] [address]Dr. Airam Tripathi Protein [Mass/Vol] 6.3 g/dL Critically low 6.4-8.2 [facility] Comment on above: Performed By: #### C MP, URIC ####[facility] Jxccwqxtxj39[address] [place] [address]Dr. Airam Tripathi Sodium [Moles/Vol] 130 mmol/L Critically low 136-145 [facility] Comment on above: Performed By: #### C MP, URIC ####[facility] Emetpzsahg0088[address] [place], [place] [address]Dr. Airam Tripathi Urea nitrogen [Mass/Vol] 49.0 mg/dL Critically high 7.0-18.0 [facility] Comment on above: Performed By: #### C MP, URIC ####[facility] Zliwcxzhrs571834 [address] [place], [place] [address]Dr. Airam Tripathi Urea nitrogen/Creatinine [Mass ratio] 26.3 mg/mg Normal [facility] Comment on above: Performed By: #### C MP, URIC ####[facility] Dvoogjvufp850834 [address] [place], [place] [address]Dr. Airam Tripathi URIC ACID SERUMon 04-06-2022 Urate [Mass/Vol] 6.5 mg/dL Critically high 2.6-6.0 [facility] Comment on above: Performed By: #### C MP, URIC ####[facility] Exddxjaviz2833[address] [place], [place] [address]Dr. Airam Tripathi VITAMIN D 25 OHon 04-06-2022 VIT D 25-OH 74.5 ng/mL Normal [facility] Comment on above: Performed By: #### F ETIBC, VITAD, FERR ####[facility] Rtgpwgihat6047[address] [place], [place] [address]Dr. Airam Tripathi VIT D RANGES SEE BELOW Normal [facility] Comment on above: Result Comment: <20 ng/mL Vit D deficient 20 - <30 ng/mL Vit D insufficient 30 - 100 ng/mL Vit D sufficient >100 ng/mL Potential Toxicity Performed By: #### F ETIBC, VITAD, FERR ####[facility] Bdxmquvusc7565[address] [place], [place] [address]Dr. Airam Tripathi OSMOLALITYon 04-01-2022 Osmolality [Osmolality] 284 mosm/kg Normal 275-295 [facility] Comment on above: Performed By: #### O SMO ####[facility] Hcqhjgnfsu938[address] [place], [place] [address]Dr. Airam Deuce CBC AUTO DIFFon 03-31-2022 BASO # 0.0 103/ul Normal 0.0-0.1 [facility] Comment on above: Performed By: #### C BC ####[facility] Lodocrrxmj6055[address] [place], [place] [address]Dr. Airam Tripathi Basophils/100 WBC (Bld) 0.3 % Normal 0.2-2.0 [facility] Comment on above: Performed By: #### C BC ####[facility] Nzaykvixxw418034 [address] [place], [place] [address]Dr. Airam Tripathi EO # 0.1 103/ul Normal 0.0-0.7 [facility] Comment on above: Performed By: #### C BC ####[facility] Mfrfciozig953234 [address] [place], [place] [address]Dr. Airam Tripathi Eosinophils/100 WBC (Bld) 2.0 % Normal 0.9-7.0 [facility] Comment on above: Performed By: #### C BC ####[facility] Boiivqvomx6633[address] [place], [place] [address]Dr. Airam Tripathi Erythrocyte distribution width (RBC) [Ratio] 13.5 % Normal 11.0-15.0 [facility] Comment on above: Performed By: #### C BC ####[facility] Upofnvjmhi0536[address] [place], [place] [address]Dr. Airam Tripathi Hematocrit (Bld) [Volume fraction] 32.5 % Critically low 36.0-48.0 [facility] Comment on above: Performed By: #### C BC ####[facility] Qzidqpfipc3813[address] [place], [place] [address]Dr. Airam Tripathi Hemoglobin (Bld) [Mass/Vol] 10.1 g/dL Critically low 12.0-16.0 [facility] Comment on above: Performed By: #### C BC ####[facility] [address]dget[address] [place] [address]Dr. Airam Tripathi IG # 0.03 10e3/ul Normal 0.00-0.03 [facility] Comment on above: Performed By: #### C BC ####[facility] Lzmbomfnqs0299 [place] [address]Dr. Selenaneil Tripathi IG % 0.4 % Normal 0.0-0.5 [facility] Comment on above: Performed By: #### C BC ####[facility] Veouqvthqj83[address] [place], [place] [address]Dr. Airam Tripathi LYMPH # 1.6 103/ul Normal 1.2-3.8 [facility] Comment on above: Performed By: #### C BC ####[facility] Pttxcgbrnk759434 [address] [place], [place] [address]Dr. Airam Tripathi Lymphocytes/100 WBC (Bld) 22.6 % Normal 20.5-60.0 [facility] Comment on above: Performed By: #### C BC ####[facility] Nfigoifgrm474234 [address] [place], [place] [address]Dr. Selenaneil Triapthi MANUAL DIFF REQ NO Normal [facility] Comment on above: Performed By: #### C BC ####[facility] Qtnzbbjqjq648234 [address] [place], [place] [address]DrKianna Airam Deuce MCH (RBC) [Entitic mass] 30.5 pg Normal 26.7-34.0 [facility] Comment on above: Performed By: #### C BC ####[facility] Urourerwmx2533[address] [place], [place] [address]DrKianna Airam Deuce MCHC (RBC) [Mass/Vol] 31.1 g/dL Normal 29.9-35.2 [facility] Comment on above: Performed By: #### C BC ####[facility] Zgkmqzhurm3664[address] [place], [place] [address]DrKianna Airam Deuce MCV (RBC) [Entitic vol] 98.2 fL Normal 81.0-99.0 [facility] Comment on above: Performed By: #### C BC ####[facility] Wxwzsfbslp415634 [address] [place], [place] [address]Dr. Airam Tripathi MONO # 0.5 103/ul Normal 0.3-0.8 [facility] Comment on above: Performed By: #### C BC ####[facility] Ckrljqyuhu[address] [place] [address]Dr. Airam Tripathi Monocytes/100 WBC (Bld) 7.3 % Normal 1.7-12.0 [facility] Comment on above: Performed By: #### C BC ####[facility] Vasrncgmcc1136 [place] [address]Dr. Airam Tripathi NEUT # 4.7 103/ul Normal 1.4-6.5 [facility] Comment on above: Performed By: #### C BC ####[facility] Vcrndabums4199 [place] [address]Dr. Airam Tripathi Neutrophils/100 WBC (Bld) 67.4 % Normal 43.0-75.0 [facility] Comment on above: Performed By: #### C BC ####[facility] Vkguilbplx044134 [address] [place], [place] [address]Dr. Airam Tripathi Platelet mean volume (Bld) [Entitic vol] 9.5 fL Normal 9.5-13.5 [facility] Comment on above: Performed By: #### C BC ####[facility] Zisbdqklvu5[address] [place] [address]Dr. Airam Tripathi PLT 273 103/ul Normal 150-450 [facility] Comment on above: Performed By: #### C BC ####[facility] Jsnvuamnuq752734 [address] [place], [place] [address]Dr. Airam Tripathi RBC 3.31 106/ul Critically low 4.20-5.40 [facility] Comment on above: Performed By: #### C BC ####[facility] Uzsjqflwon515934 [address] [place], [place] [address]Dr. Airam Deuce WBC 7.0 103/ul Normal 4.0-11.0 [facility] Comment on above: Performed By: #### C BC ####[facility] Fjuaizlroe0716[address] [place], [place] [address]DrKianna Tripathi PROF 14(COMP METB)on 022 Albumin [Mass/Vol] 3.4 g/dL Normal 3.4-5.0 [facility] Comment on above: Performed By: #### C MP ####[facility] Gysfogyybe094034 [address] [place], [place] [address]Dr. Airam Tripathi Albumin/Globulin [Mass ratio] 1.1 {ratio} Normal [facility] Comment on above: Performed By: #### C MP ####[facility] Bhtmtrdnkw432434 [address] [place], [place] [address]Dr. Airam Tripathi ALP [Catalytic activity/Vol] 107 U/L Normal 46-116 [facility] Comment on above: Performed By: #### C MP ####[facility] Ftwzzuzwvh5026[address] [place], [place] [address]Dr. Airam Tripathi ALT [Catalytic activity/Vol] 22 U/L Normal 14-59 [facility] Comment on above: Performed By: #### C MP ####[facility] Cnuengbrat0110[address] [place], [place] [address]Dr. Airam Tripathi Anion gap [Moles/Vol] 6.8 mmol/L Normal [facility] Comment on above: Performed By: #### C MP ####[facility] Nrclrniqgd995534 [address] [place], [place] [address]Dr. Airam Tripathi AST [Catalytic activity/Vol] 23 U/L Normal 15-37 [facility] Comment on above: Performed By: #### C MP ####[facility] Evoaikhelf41[address] [place], [place] [address]Dr. Airam Tripathi Bilirubin [Mass/Vol] 0.2 mg/dL Normal 0.2-1.0 [facility] Comment on above: Performed By: #### C MP ####[facility] Boqvdgpwgp239934 [address] [place], [place] [address]Dr. Airam Tripathi Calcium [Mass/Vol] 8.4 mg/dL Critically low 8.5-10.1 [facility] Comment on above: Performed By: #### C MP ####[facility] Cwvkgjlbip529034 [address] [place], [place] [address]Dr. Airam Tripathi Chloride [Moles/Vol] 100 mmol/L Normal 98-107 [facility] Comment on above: Performed By: #### C MP ####[facility] Hsfjufdwbu493634 [address] [place], [place] [address]Dr. Airam Deuce CO2 [Moles/Vol] 29.9 mmol/L Normal 21.0-32.0 [facility] Comment on above: Performed By: #### C MP ####[facility] Kurkquyjnh9595[address] [place], [place] [address]Dr. Airam Deuce Creatinine [Mass/Vol] 1.20 mg/dL Critically high 0.55-1.02 [facility] Comment on above: Performed By: #### C MP ####[facility] Bcampbyyny6568[address] [place], [place] [address]Dr. Airam Tripathi EGFR-AF [place]IZ[place] 56 mL/min/1.73m2 Critically low >=60 [facility] Comment on above: Performed By: #### C MP ####[facility] Fumoatjpjd740834 [address] [place], [place] [address]Dr. Airam Deuce EGFR-NON AF CITIZEN OF [place] 46 mL/min/1.73m2 Critically low >=60 [facility] Comment on above: Performed By: #### C MP ####[facility] Nolibpifzb573534 [address] [place], [place] [address]Dr. Airam Tripathi Globulin (S) [Mass/Vol] 3.0 g/dL Normal [facility] Comment on above: Performed By: #### C MP ####[facility] Yuujjjsnlh907034 [address] [place], [place] [address]Dr. Airam Tripathi Glucose [Mass/Vol] 57 mg/dL Critically low 74-106 [facility] Comment on above: Performed By: #### C MP ####[facility] Tnewdvumfx0608[address] [place], [place] [address]Dr. Airam Tripathi Potassium [Moles/Vol] 3.7 mmol/L Normal 3.5-5.1 [facility] Comment on above: Performed By: #### C MP ####[facility] Hnxuybsdsk422134 [address] [place], [place] [address]Dr. Airam Tripathi Protein [Mass/Vol] 6.4 g/dL Normal 6.4-8.2 [facility] Comment on above: Performed By: #### C MP ####[facility] Sjjmdvnasd323734 [address] [place], [place] [address]DrKianna Tripathi Sodium [Moles/Vol] 133 mmol/L Critically low 136-145 [facility] Comment on above: Performed By: #### C MP ####[facility] Epvsvqwekg801934 [address] [place], [place] [address]DrKianna Tripathi Urea nitrogen [Mass/Vol] 39.0 mg/dL Critically high 7.0-18.0 [facility] Comment on above: Performed By: #### C MP ####[facility] Icjtpegjgk337234 [address] [place], [place] [address]Dr. Airam Tripathi Urea nitrogen/Creatinine [Mass ratio] 32.5 mg/mg Normal [facility] Comment on above: Performed By: #### C MP ####[facility] Utpehagjxd407[address] [place], [place] [address]DrKianna Tripathi OSMOLALITYon 03-24-2022 Osmolality [Osmolality] 285 mosm/kg Normal 275-295 [facility] Comment on above: Performed By: #### O SMO ####[facility] Dwyzwkquse799[address] [place], [place] [address]DrKianna Tripathi CBC AUTO DIFFon 03-22-2022 BASO # 0.0 103/ul Normal 0.0-0.1 [facility] Comment on above: Performed By: #### C BC ####[facility] Hjwkihrrde2537[address] [place], [place] [address]Dr. Airam Tripathi Basophils/100 WBC (Bld) 0.4 % Normal 0.2-2.0 [facility] Comment on above: Performed By: #### C BC ####[facility] Qteoiairvy475[address] [place], [place] [address]DrKianna Tripathi EO # 0.2 103/ul Normal 0.0-0.7 [facility] Comment on above: Performed By: #### C BC ####[facility] Fobforvrij0665[address] [place], [place] [address]Dr. Airam Tripathi Eosinophils/100 WBC (Bld) 2.3 % Normal 0.9-7.0 [facility] Comment on above: Performed By: #### C BC ####[facility] Zoepaxfgcu[address] [place] [address]Dr. Airam Tripathi Erythrocyte distribution width (RBC) [Ratio] 13.9 % Normal 11.0-15.0 [facility] Comment on above: Performed By: #### C BC ####[facility] Pjogskmhuw8016[address] [place], [place] [address]Dr. Airam Tripathi Hematocrit (Bld) [Volume fraction] 32.6 % Critically low 36.0-48.0 [facility] Comment on above: Performed By: #### C BC ####[facility] Nefghthigj5717[address] [place], [place] [address]Dr. Airam Tripathi Hemoglobin (Bld) [Mass/Vol] 10.3 g/dL Critically low 12.0-16.0 [facility] [facility] Comment [facility]: Performed By: #### C BC ####[facility] Rqyrfppayz[address] [place], [place] [address]Dr. Airam Tripathi IG # 0.11 10e3/ul Critically high 0.00-0.03 [facility] Comment on above: Performed By: #### C BC ####[facility] Prgykgscda312034 [address] [place], [place] [address]Dr. Airam Tripathi IG % 1.4 % Critically high 0.0-0.5 [facility] Comment on above: Performed By: #### C BC ####[facility] Jzyvogdbyj8188[address] [place], [place] [address]Dr. Airam Tripathi LYMPH # 1.3 103/ul Normal 1.2-3.8 [facility] Comment on above: Performed By: #### C BC ####[facility] Dvdwpfmzjo821734 [address] [place], [place] [address]Dr. Airam Tripathi Lymphocytes/100 WBC (Bld) 15.9 % Critically low 20.5-60.0 [facility] Comment on above: Performed By: #### C BC ####[facility] [address] [place] [address]Dr. Airam Deuce MANUAL DIFF REQ NO Normal [facility] Comment on above: Performed By: #### C BC ####[facility] Pdracdgupt44[address] [place] [address]Dr. Airam Tripathi MCH (RBC) [Entitic mass] 30.7 pg Normal 26.7-34.0 [facility] Comment on above: Performed By: #### C BC ####[facility] Vzuuhgnxyn[address] [place] [address]Dr. Airam Deuce MCHC (RBC) [Mass/Vol] 31.6 g/dL Normal 29.9-35.2 [facility] Comment on above: Performed By: #### C BC ####[facility] Esiypehyut3027[address] [place], [place] [address]Dr. Selenaneil Tripathi MCV (RBC) [Entitic vol] 97.0 fL Normal 81.0-99.0 [facility] Comment on above: Performed By: #### C BC ####[facility] Xwxkyskade364[address] [place], [place] [address]Dr. Airam Deuce MONO # 0.6 103/ul Normal 0.3-0.8 [facility] Comment on above: Performed By: #### C BC ####[facility] Xfwpujndqh291834 [address] [place], [place] [address]Dr. Selenaneil Tripathi Monocytes/100 WBC (Bld) 6.9 % Normal 1.7-12.0 [facility] Comment on above: Performed By: #### C BC ####[facility] Jewegaprye[address] [place] [address]Dr. Selenaneil Deuce NEUT # 5.9 103/ul Normal 1.4-6.5 [facility] Comment on above: Performed By: #### C BC ####[facility] Ciuuqrkfgg018534 [address] [place], [place] [address]Dr. Airam Tripathi Neutrophils/100 WBC (Bld) 73.1 % Normal 43.0-75.0 [facility] Comment on above: Performed By: #### C BC ####[facility] Nrbvfktxhd75[address] [place] [address]Dr. Airam Deuce Platelet mean volume (Bld) [Entitic vol] 9.5 fL Normal 9.5-13.5 [facility] Comment on above: Performed By: #### C BC ####[facility] Zewxkjiurw20[address] [place] [address]Dr. Selenaneil Deuce PLT 313 103/ul Normal 150-450 [facility] Comment on above: Performed By: #### C BC ####[facility] Vvcvuyvblp4973 [place] [address]Dr. Selenaneil Deuce RBC 3.36 106/ul Critically low 4.20-5.40 [facility] Comment on above: Performed By: #### C BC ####[facility] Ubyhbgiddh475934 [address] [place], [place] [address]Dr. Selenaneil Deuce WBC 8.1 103/ul Normal 4.0-11.0 [facility] Comment on above: Performed By: #### C BC ####[facility] Avnqwarthk06[address] [place] [address]Dr. Airam Tripathi PROF 14(COMP METB)on 022 Albumin [Mass/Vol] 3.3 g/dL Critically low 3.4-5.0 [facility] Comment on above: Performed By: #### C MP ####[facility] Zmoxltykqf4[address] [place] [address]Dr. Aiarm Tripathi Albumin/Globulin [Mass ratio] 1.0 {ratio} Normal [facility] Comment on above: Performed By: #### C MP ####[facility] Bzhcwsropd4163 [place] [address]Dr. Airam Tripathi ALP [Catalytic activity/Vol] 113 U/L Normal 46-116 [facility] Comment on above: Performed By: #### C MP ####[facility] Wbfctrijuv663034 [address] [place], [place] [address]Dr. Airam Tripathi ALT [Catalytic activity/Vol] 21 U/L Normal 14-59 [facility] Comment on above: Performed By: #### C MP ####[facility] Madrqakyxz774234 [address] [place], [place] [address]Dr. Airam Tripathi Anion gap [Moles/Vol] 12.2 mmol/L Normal [facility] Comment on above: Performed By: #### C MP ####[facility] Emnjmhdshm458334 [address] [place], [place] [address]Dr. Airam Tripathi AST [Catalytic activity/Vol] 21 U/L Normal 15-37 [facility] Comment on above: Performed By: #### C MP ####[facility] Fgzroseznd728734 [address] [place], [place] [address]Dr. Airam Tripathi Bilirubin [Mass/Vol] 0.2 mg/dL Normal 0.2-1.0 [facility] Comment on above: Performed By: #### C MP ####[facility] Zwerwgiihe389334 [address] [place], [place] [address]Dr. Airam Deuce Calcium [Mass/Vol] 8.4 mg/dL Critically low 8.5-10.1 [facility] Comment on above: Performed By: #### C MP ####[facility] Dyjpftdbve304234 [address] [place], [place] [address]Dr. Airam Deuce Chloride [Moles/Vol] 103 mmol/L Normal 98-107 [facility] Comment on above: Performed By: #### C MP ####[facility] Wlgouiuahe348634 [address] [place], [place] [address]Dr. Airam Deuce CO2 [Moles/Vol] 24.4 mmol/L Normal 21.0-32.0 [facility] Comment on above: Performed By: #### C MP ####[facility] Abojvyvoci839234 [address] [place], [place] [address]Dr. Airam Deuce Creatinine [Mass/Vol] 1.11 mg/dL Critically high 0.55-1.02 [facility] Comment on above: Performed By: #### C MP ####[facility] Sjvxgvbpad953734 [address] [place], [place] [address]Dr. Selenaneil Deuce EGFR-AF CITIZ[place] >60 Normal >=60 [facility] Comment on above: Performed By: #### C MP ####[facility] Ucbptcsipf453734 [address] [place], [place] [address]Dr. Airam Tripathi EGFR-NON AF CITIZEN OF [place] 50 mL/min/1.73m2 Critically low >=60 [facility] Comment on above: Performed By: #### C MP ####[facility] Rnfjucckig7[address] [place] [address]Dr. Airam Tripathi Globulin (S) [Mass/Vol] 3.2 g/dL Normal [facility] Comment on above: Performed By: #### C MP ####[facility] Pqlzpvloeg2299 [place] [address]Dr. Airam Tripathi Glucose [Mass/Vol] 84 mg/dL Normal 74-106 [facility] Comment on above: Performed By: #### C MP ####[facility] Fkjxoldpmi217534 [address] [place], [place] [address]Dr. Airam Tripathi Potassium [Moles/Vol] 4.6 mmol/L Normal 3.5-5.1 [facility] Comment on above: Performed By: #### C MP ####[facility] Kvfjfaufua221834 [address] [place], [place] [address]Dr. Airam Tripathi Protein [Mass/Vol] 6.5 g/dL Normal 6.4-8.2 [facility] Comment on above: Performed By: #### C MP ####[facility] Bfulgjcscw491534 [address] [place], [place] [address]Dr. Airam Tripathi Sodium [Moles/Vol] 135 mmol/L Critically low 136-145 [facility] Comment on above: Performed By: #### C MP ####[facility] Tleuuthynh414434 [address] [place], [place] [address]Dr. Airam Tripathi Urea nitrogen [Mass/Vol] 39.0 mg/dL Critically high 7.0-18.0 [facility] Comment on above: Performed By: #### C MP ####[facility] Lvmllvgghh973634 [address] [place], [place] [address]Dr. Airam Tripathi Urea nitrogen/Creatinine [Mass ratio] 35.1 mg/mg Normal [facility] Comment on above: Performed By: #### C MP ####[facility] Ginsvyuhcp514134 [address] [place], [place] [address]Dr. Airam Tripathi OSMOLALITYon 03-17-2022 Osmolality [Osmolality] 277 mosm/kg Normal 275-295 [facility] Comment on above: Performed By: #### O SMO ####[facility] Mceantwebf719234 [address] [place], [place] [address]Dr. Airam Tripathi CBC AUTO DIFFon 03-15-2022 BASO # 0.0 103/ul Normal 0.0-0.1 [facility] Comment on above: Performed By: #### C BC ####[facility] Ryhjprywsh726434 [address] [place], [place] [address]Dr. Airam Deuce Basophils/100 WBC (Bld) 0.4 % Normal 0.2-2.0 [facility] Comment on above: Performed By: #### C BC ####[facility] Aupnoxjklb446034 [address] [place], [place] [address]Dr. Airam Tripathi EO # 0.1 103/ul Normal 0.0-0.7 [facility] Comment on above: Performed By: #### C BC ####[facility] Ivnludcqfs176334 [address] [place], [place] [address]Dr. Selenaneil Tripathi Eosinophils/100 WBC (Bld) 2.4 % Normal 0.9-7.0 [facility] Comment on above: Performed By: #### C BC ####[facility] Pknezzdnuz4280[address] [place], [place] [address]Dr. Airam Tripathi Erythrocyte distribution width (RBC) [Ratio] 13.9 % Normal 11.0-15.0 [facility] Comment on above: Performed By: #### C BC ####[facility] Luhdyxhrho2327[address] [place], [place] [address]Dr. Airam Tripathi Hematocrit (Bld) [Volume fraction] 31.2 % Critically low 36.0-48.0 [facility] Comment on above: Performed By: #### C BC ####[facility] Ysykpjsnhq052434 [address] [place], [place] [address]Dr. Airam Tripathi Hemoglobin (Bld) [Mass/Vol] 9.9 g/dL Critically low 12.0-16.0 [facility] Comment on above: Performed By: #### C BC ####[facility] [address]wnbhsgyby[address] [place] [address]Dr. Airam Tripathi IG # 0.03 10e3/ul Normal 0.00-0.03 [facility] Comment on above: Performed By: #### C BC ####[facility] Qdmnhvwzal2460 [place] [address]Dr. Airam Tripathi IG % 0.6 % Critically high 0.0-0.5 [facility] Comment on above: Performed By: #### C BC ####[facility] Shgeliptwm0533 [place] [address]Dr. Airam Deuce LYMPH # 1.5 103/ul Normal 1.2-3.8 [facility] Comment on above: Performed By: #### C BC ####[facility] Ppjjgotzok5148 [place] [address]Dr. Airam Tripathi Lymphocytes/100 WBC (Bld) 29.4 % Normal 20.5-60.0 [facility] Comment on above: Performed By: #### C BC ####[facility] Bvntubmibt7[address] [place] [address]Dr. Selenaneil Tripathi MANUAL DIFF REQ NO Normal [facility] Comment on above: Performed By: #### C BC ####[facility] Lvuxaykhfm6736 [place] [address]Dr. Airam Tripathi MCH (RBC) [Entitic mass] 30.5 pg Normal 26.7-34.0 [facility] Comment on above: Performed By: #### C BC ####[facility] Ityqsazkbf7220 [place] [address]Dr. Airam Tripathi MCHC (RBC) [Mass/Vol] 31.7 g/dL Normal 29.9-35.2 [facility] Comment on above: Performed By: #### C BC ####[facility] Bbodrlkwmk144934 [address] [place], [place] [address]Dr. Airam Tripathi MCV (RBC) [Entitic vol] 96.0 fL Normal 81.0-99.0 [facility] Comment on above: Performed By: #### C BC ####[facility] Oqmbmzoayq[address] [place], [place] [id number]. Airam Tripathi MONO # 0.4 103/ul Normal 0.3-0.8 [facility] Comment on above: Performed By: #### C BC ####[facility] Qogjfhgrgc8733 [place] [address]Dr. Airam Tripathi Monocytes/100 WBC (Bld) 7.0 % Normal 1.7-12.0 [facility] Comment on above: Performed By: #### C BC ####[facility] Yurenylucd3618 [place] [address]Dr. Airam Tripathi NEUT # 3.0 103/ul Normal 1.4-6.5 [facility] Comment on above: Performed By: #### C BC ####[facility] Jkgrwdlvfd300334 [address] [place], [place] [address]Dr. Airam Tripathi Neutrophils/100 WBC (Bld) 60.2 % Normal 43.0-75.0 [facility] Comment on above: Performed By: #### C BC ####[facility] Gqybbbzhql787934 [address] [place], [place] [address]Dr. Airam Tripathi Platelet mean volume (Bld) [Entitic vol] 9.6 fL Normal 9.5-13.5 [facility] Comment on above: Performed By: #### C BC ####[facility] Rnapctmjxj8589 [place] [address]Dr. Airam Tripathi PLT 258 103/ul Normal 150-450 [facility] Comment on above: Performed By: #### C BC ####[facility] Jskxonwcoc573034 [address] [place], [place] [address]Dr. Airam Tripathi RBC 3.25 106/ul Critically low 4.20-5.40 [facility] Comment on above: Performed By: #### C BC ####[facility] Donhutavnh735234 [address] [place], [place] [address]Dr. Airam Deuce WBC 5.0 103/ul Normal 4.0-11.0 [facility] Comment on above: Performed By: #### C BC ####[facility] Qvxgqexavb040434 [address] [place], [place] [address]Dr. Airam Tripathi PROF 14(COMP METB)on 022 Albumin [Mass/Vol] 3.3 g/dL Critically low 3.4-5.0 [facility] Comment on above: Performed By: #### C MP ####[facility] Nyltviflkl054934 [address] [place], [place] [address]Dr. Airam Tripathi Albumin/Globulin [Mass ratio] 1.1 {ratio} Normal [facility] Comment on above: Performed By: #### C MP ####[facility] Kjlhwjexgr447634 [address] [place], [place] [address]Dr. Airam Tripathi ALP [Catalytic activity/Vol] 106 U/L Normal 46-116 [facility] Comment on above: Performed By: #### C MP ####[facility] Xbdpobwrck998734 [address] [place], [place] [address]Dr. Airam Tripathi ALT [Catalytic activity/Vol] 22 U/L Normal 14-59 [facility] Comment on above: Performed By: #### C MP ####[facility] Ekbletgvoy074234 [address] [place], [place] [address]Dr. Airam Tripathi Anion gap [Moles/Vol] 11.4 mmol/L Normal [facility] Comment on above: Performed By: #### C MP ####[facility] Mxbibwytzw319034 [address] [place], [place] [address]Dr. Airam Tripathi AST [Catalytic activity/Vol] 22 U/L Normal 15-37 [facility] Comment on above: Performed By: #### C MP ####[facility] Akiholbste963934 [address] [place], [place] [address]Dr. Airam Tripathi Bilirubin [Mass/Vol] 0.3 mg/dL Normal 0.2-1.0 [facility] Comment on above: Performed By: #### C MP ####[facility] Nswduuohuj454734 [address] [place], [place] [address]Dr. Airam Trpiathi Calcium [Mass/Vol] 8.1 mg/dL Critically low 8.5-10.1 [facility] Comment on above: Performed By: #### C MP ####[facility] Wayjraioxn601134 [address] [place], [place] [address]Dr. Airam Tripathi Chloride [Moles/Vol] 100 mmol/L Normal 98-107 [facility] Comment on above: Performed By: #### C MP ####[facility] Zhkomnebkw6308 [place] [address]Dr. Airam Deuce CO2 [Moles/Vol] 25.6 mmol/L Normal 21.0-32.0 [facility] Comment on above: Performed By: #### C MP ####[facility] Mzwdqxjmuj731834 [address] [place], [place] [address]Dr. Airam Tripathi Creatinine [Mass/Vol] 1.21 mg/dL Critically high 0.55-1.02 [facility] Comment on above: Performed By: #### C MP ####[facility] Heqdirdcio110234 [address] [place], [place] [address]Dr. Airam Tripathi EGFR-AF [place]IZ[place] 55 mL/min/1.73m2 Critically low >=60 [facility] Comment on above: Performed By: #### C MP ####[facility] Cqzlpabfsc8677[address] [place], [place] [address]Dr. Selenaneil Deuce EGFR-NON AF [place]IZ[place] 45 mL/min/1.73m2 Critically low >=60 [facility] Comment on above: Performed By: #### C MP ####[facility] Crriwzuubk308634 [address] [place], [place] [address]Dr. Airam Tripathi Globulin (S) [Mass/Vol] 3.0 g/dL Normal [facility] Comment on above: Performed By: #### C MP ####[facility] Xtouqqfash908834 [address] [place], [place] [address]Dr. Airam Tripathi Glucose [Mass/Vol] 84 mg/dL Normal 74-106 [facility] Comment on above: Performed By: #### C MP ####[facility] Rtlvecphoe206834 [address] [place], [place] [address]Dr. Airam Tripathi Potassium [Moles/Vol] 4.0 mmol/L Normal 3.5-5.1 [facility] Comment on above: Performed By: #### C MP ####[facility] Gwozapnfnf090434 [address] [place], [place] [address]Dr. Airam Tripathi Protein [Mass/Vol] 6.3 g/dL Critically low 6.4-8.2 [facility] Comment on above: Performed By: #### C MP ####[facility] Pbdrreknqv897234 [address] [place], [place] [address]Dr. Airam Tripathi Sodium [Moles/Vol] 133 mmol/L Critically low 136-145 [facility] Comment on above: Performed By: #### C MP ####[facility] Bvlfuqsbic188634 [address] [place], [place] [address]Dr. Airam Tripathi Urea nitrogen [Mass/Vol] 29.0 mg/dL Critically high 7.0-18.0 [facility] Comment on above: Performed By: #### C MP ####[facility] Wdiuqanbym47[address] [place], [place] [address]Dr. Airam Tripathi Urea nitrogen/Creatinine [Mass ratio] 24.0 mg/mg Normal [facility] Comment on above: Performed By: #### C MP ####[facility] Lpxbbfjsoi314034 [address] [place], [place] [address]Dr. Airam Tripathi OSMOLALITYon 03-12-2022 Osmolality [Osmolality] 285 mosm/kg Normal 275-295 [facility] Comment on above: Performed By: #### O SMO ####[facility] Qgtsxvzqhd5617[address] [place], [place] [address]Dr. Airam Tripathi CBC AUTO DIFFon 03-10-2022 BASO # 0.0 103/ul Normal 0.0-0.1 [facility] Comment on above: Performed By: #### C BC ####[facility] Skqrczxbiw370634 [address] [place], [place] [address]Dr. Airam Deuce Basophils/100 WBC (Bld) 0.3 % Normal 0.2-2.0 [facility] Comment on above: Performed By: #### C BC ####[facility] Hydakgbclj216034 [address] [place], [place] [address]Dr. Airam Deuce EO # 0.2 103/ul Normal 0.0-0.7 [facility] Comment on above: Performed By: #### C BC ####[facility] Jgbuyprhui025[address] [place] [address]Dr. Airam Tripathi Eosinophils/100 WBC (Bld) 2.7 % Normal 0.9-7.0 [facility] Comment on above: Performed By: #### C BC ####[facility] Jjzdauywhk665734 [address] [place], [place] [address]Dr. Airam Tripathi Erythrocyte distribution width (RBC) [Ratio] 14.4 % Normal 11.0-15.0 [facility] Comment on above: Performed By: #### C BC ####[facility] Hdzfdtovdn349034 [address] [place], [place] [address]Dr. Airam Tripathi Hematocrit (Bld) [Volume fraction] 32.5 % Critically low 36.0-48.0 [facility] Comment on above: Performed By: #### C BC ####[facility] Jgdlyykaji969434 [address] [place], [place] [address]Dr. Airam Tripathi Hemoglobin (Bld) [Mass/Vol] 10.1 g/dL Critically low 12.0-16.0 [facility] Comment on above: Performed By: #### C BC ####[facility] Gojseoutdv655734 [address] [place], [place] [address]Dr. Airam Tripathi IG # 0.03 10e3/ul Normal 0.00-0.03 [facility] Comment on above: Performed By: #### C BC ####[facility] Erufuqjrpd8058[address] [place], [place] [address]Dr. Airam Tripathi IG % 0.4 % Normal 0.0-0.5 [facility] Comment on above: Performed By: #### C BC ####[facility] Zbblxlmlrd580534 [address] [place], [place] [address]Dr. Airam Tripathi LYMPH # 1.4 103/ul Normal 1.2-3.8 [facility] Comment on above: Performed By: #### C BC ####[facility] Ngrrkpnhmt049734 [address] [place], [place] [address]Dr. Airam Tripathi Lymphocytes/100 WBC (Bld) 19.4 % Critically low 20.5-60.0 [facility] Comment on above: Performed By: #### C BC ####[facility] Bcroxdnsbr40[address] [place] [address]Dr. Airam Tripathi MANUAL DIFF REQ NO Normal [facility] Comment on above: Performed By: #### C BC ####[facility] Roeycurcdk0907 [place] [address]Dr. Airam Tripathi MCH (RBC) [Entitic mass] 30.6 pg Normal 26.7-34.0 [facility] Comment on above: Performed By: #### C BC ####[facility] Ijtatsipmo0188 [place] [address]Dr. Airam Deuce MCHC (RBC) [Mass/Vol] 31.1 g/dL Normal 29.9-35.2 [facility] Comment on above: Performed By: #### C BC ####[facility] Emafsjhnlo0581 [place] [address]Dr. Selenaneil Tripathi MCV (RBC) [Entitic vol] 98.5 fL Normal 81.0-99.0 [facility] Comment on above: Performed By: #### C BC ####[facility] Enxgrfyikr1566[address] [place], [place] [address]Dr. Airam Deuce MONO # 0.5 103/ul Normal 0.3-0.8 [facility] Comment on above: Performed By: #### C BC ####[facility] Ggkprzktfg668[address] [place], [place] [address]Dr. Selenaneil Tripathi Monocytes/100 WBC (Bld) 6.7 % Normal 1.7-12.0 [facility] Comment on above: Performed By: #### C BC ####[facility] Hwrjmbuusc150234 [address] [place], [place] [address]Dr. Selenaneil Deuce NEUT # 5.2 103/ul Normal 1.4-6.5 [facility] Comment on above: Performed By: #### C BC ####[facility] Oqpsbtgbej6697[address] [place], [place] [address]Dr. Airam Tripathi Neutrophils/100 WBC (Bld) 70.5 % Normal 43.0-75.0 [facility] Comment on above: Performed By: #### C BC ####[facility] Ffxkaysbdi4883 [place] [address]Dr. Airam Deuce Platelet mean volume (Bld) [Entitic vol] 9.8 fL Normal 9.5-13.5 [facility] Comment on above: Performed By: #### C BC ####[facility] Zzeuziujrl75[address] [place] [address]Dr. Airam Tripathi PLT 277 103/ul Normal 150-450 [facility] Comment on above: Performed By: #### C BC ####[facility] Vtllsreuwh7535 [place] [address]Dr. Airam Tripathi RBC 3.30 106/ul Critically low 4.20-5.40 [facility] Comment on above: Performed By: #### C BC ####[facility] Hglrkbgdkj23[address] [place], [place] [address]Dr. Airam Tripathi WBC 7.4 103/ul Normal 4.0-11.0 [facility] Comment on above: Performed By: #### C BC ####[facility] Fbzoircucl0947 [place] [address]Dr. Airam Tripathi PROF 14(COMP METB)on 022 Albumin [Mass/Vol] 3.6 g/dL Normal 3.4-5.0 [facility] Comment on above: Performed By: #### C MP ####[facility] Gaeusqdogy6387[address] [place], [place] [address]Dr. Airam Tripathi Albumin/Globulin [Mass ratio] 1.1 {ratio} Normal [facility] Comment on above: Performed By: #### C MP ####[facility] [address]ive[address] [place] [address]Dr. Airam Tripathi ALP [Catalytic activity/Vol] 112 U/L Normal 46-116 [facility] Comment on above: Performed By: #### C MP ####[facility] Mjbztukfor[address] [place] [address]Dr. Airam Tripathi ALT [Catalytic activity/Vol] 26 U/L Normal 14-59 [facility] Comment on above: Performed By: #### C MP ####[facility] Pcxsgtslps9[address] [place], [place] [address]Dr. Airam Tripathi Anion gap [Moles/Vol] 12.0 mmol/L Normal Th e [facility] Comment on above: Performed By: #### C MP ####[facility] Skziprlkgl[address] [place] [address]Dr. Airam Tripathi AST [Catalytic activity/Vol] 25 U/L Normal 15-37 [facility] Comment on above: Performed By: #### C MP ####[facility] Ilqsirskdg[address] [place] [address]Dr. Airam Tripathi Bilirubin [Mass/Vol] 0.4 mg/dL Normal 0.2-1.0 [facility] Comment on above: Performed By: #### C MP ####[facility] Nnsdhnrimf[address] [place] [address]Dr. Airam Tripathi Calcium [Mass/Vol] 8.9 mg/dL Normal 8.5-10.1 [facility] Comment on above: Performed By: #### C MP ####[facility] Pjbfyapgqn76[address] [place], [place] [address]Dr. Airam Tripathi Chloride [Moles/Vol] 101 mmol/L Normal 98-107 [facility] Comment on above: Performed By: #### C MP ####[facility] Vwhnqlbjdo488[address] [place], [place] [address]Dr. Selenaneil Deuce CO2 [Moles/Vol] 24.0 mmol/L Normal 21.0-32.0 [facility] Comment on above: Performed By: #### C MP ####[facility] [address]jiemmazj[address] [place] [address]Dr. Airam Tripathi Creatinine [Mass/Vol] 1.51 mg/dL Critically high 0.55-1.02 [facility] Comment on above: Performed By: #### C MP ####[facility] Fdcvdasndl7[address] [place], [place] [address]Dr. Selenaneil Deuce EGFR-AF [place]IZ[place] 43 mL/min/1.73m2 Critically low >=60 [facility] Comment on above: Performed By: #### C MP ####[facility] Uxkyoqprkk6[address] [place], [place] [address]Dr. Airam Tripathi EGFR-NON AF CITIZEN [place] 35 mL/min/1.73m2 Critically low >=60 [facility] Comment on above: Performed By: #### C MP ####[facility] Uwfuraqzmh[address] [place] [address]Dr. Airam Tripathi Globulin (S) [Mass/Vol] 3.2 g/dL Normal [facility] Comment on above: Performed By: #### C MP ####[facility] Cepjkpgknp[address] [place] [address]Dr. Airam Tripathi Glucose [Mass/Vol] 82 mg/dL Normal 74-106 [facility] Comment on above: Performed By: #### C MP ####[facility] Zuwzolzkrd734834 [address] [place], [place] [address]Dr. Airam Tripathi Potassium [Moles/Vol] 4.0 mmol/L Normal 3.5-5.1 [facility] Comment on above: Performed By: #### C MP ####[facility] Jrigdaovrx478934 [address] [place], [place] [address]Dr. Airam Tripathi Protein [Mass/Vol] 6.8 g/dL Normal 6.4-8.2 [facility] Comment on above: Performed By: #### C MP ####[facility] Bamwbajfga992034 [address] [place], [place] [address]Dr. Airam Tripathi Sodium [Moles/Vol] 133 mmol/L Critically low 136-145 [facility] Comment on above: Performed By: #### C MP ####[facility] Ypvjsrnmtq165034 [address] [place], [place] [address]Dr. Airam Tripathi Urea nitrogen [Mass/Vol] 37.0 mg/dL Critically high 7.0-18.0 [facility] Comment on above: Performed By: #### C MP ####[facility] Hkyfalvpql010634 [address] [place], [place] [address]Dr. Airam Tripathi Urea nitrogen/Creatinine [Mass ratio] 24.5 mg/mg Normal [facility] Comment on above: Performed By: #### C MP ####[facility] Frfxzvergo856234 [address] [place], [place] [address]Dr. Airam Tripathi OSMOLALITYon 03-07-2022 Osmolality [Osmolality] 284 mosm/kg Normal 275-295 [facility] Comment on above: Performed By: #### O SMO ####[facility] Ltsktinsqz[address] [place] [address]Dr. Airam Tripathi CBC AUTO DIFFon 03-04-2022 BASO # 0.0 103/ul Normal 0.0-0.1 [facility] Comment on above: Performed By: #### C BC ####[facility] Pkbhhauwrl3046[address] [place], [place] [address]Dr. Airam Tripathi Basophils/100 WBC (Bld) 0.3 % Normal 0.2-2.0 [facility] Comment on above: Performed By: #### C BC ####[facility] Nvxeuspxrj8[address] [place], [place] [address]Dr. Airam Tripathi EO # 0.1 103/ul Normal 0.0-0.7 [facility] Comment on above: Performed By: #### C BC ####[facility] Jkubumyupr4465[address] [place], [place] [address]Dr. Airam Tripathi Eosinophils/100 WBC (Bld) 2.0 % Normal 0.9-7.0 [facility] Comment on above: Performed By: #### C BC ####[facility] Bspsudhnys29[address] [place], [place] [address]Dr. Airam Tripathi Erythrocyte distribution width (RBC) [Ratio] 14.5 % Normal 11.0-15.0 [facility] Comment on above: Performed By: #### C BC ####[facility] Krfwmzfvgy5408[address] [place], [place] [address]Dr. Airam Tripathi Hematocrit (Bld) [Volume fraction] 35.4 % Critically low 36.0-48.0 [facility] Comment on above: Performed By: #### C BC ####[facility] Hjoskdbyoo26[address] [place], [place] [address]Dr. Airam Tripathi Hemoglobin (Bld) [Mass/Vol] 11.0 g/dL Critically low 12.0-16.0 [facility] Comment on above: Performed By: #### C BC ####[facility] [address] [place] [address]Dr. Airam Tripathi IG # 0.03 10e3/ul Normal 0.00-0.03 [facility] Comment on above: Performed By: #### C BC ####[facility] [address]unvwicre[address] [place] [address]Dr. Airam Tripathi IG % 0.4 % Normal 0.0-0.5 [facility] Comment on above: Performed By: #### C BC ####[facility] Inhoivzxnm[address] [place] [address]Dr. Airam Deuce LYMPH # 1.7 103/ul Normal 1.2-3.8 [facility] Comment on above: Performed By: #### C BC ####[facility] Nnebatnniv7361 [place] [address]Dr. Airam Tripathi Lymphocytes/100 WBC (Bld) 23.8 % Normal 20.5-60.0 [facility] Comment on above: Performed By: #### C BC ####[facility] Zxssbougal53[address] [place], [place] [address]Dr. Airam Tripathi MANUAL DIFF REQ NO Normal [facility] Comment on above: Performed By: #### C BC ####[facility] [address]pxtbzeop[address] [place] [address]Dr. Selenaneil Tripathi MCH (RBC) [Entitic mass] 30.0 pg Normal 26.7-34.0 [facility] Comment on above: Performed By: #### C BC ####[facility] Dloqmosjeo[address] [place] [address]Dr. Airam Tripathi MCHC (RBC) [Mass/Vol] 31.1 g/dL Normal 29.9-35.2 [facility] Comment on above: Performed By: #### C BC ####[facility] Oc[address]znkqc[address] [place] [address]Dr. Selenaneil Tripathi MCV (RBC) [Entitic vol] 96.5 fL Normal 81.0-99.0 [facility] Comment on above: Performed By: #### C BC ####[facility] Vrbpdoqaml8[address] [place] [address]Dr. Airam Tripathi MONO # 0.5 103/ul Normal 0.3-0.8 [facility] Comment on above: Performed By: #### C BC ####[facility] Bmtmirsfib1070 [place] [address]Dr. Airam Tripathi Monocytes/100 WBC (Bld) 6.6 % Normal 1.7-12.0 [facility] Comment on above: Performed By: #### C BC ####[facility] Aiaxgtuwtt[address] [place] [address]Dr. Airam Tripathi NEUT # 4.7 103/ul Normal 1.4-6.5 [facility] Comment on above: Performed By: #### C BC ####[facility] Zwufuluqlu20[address] [place] [address]Dr. Airam Tripathi Neutrophils/100 WBC (Bld) 66.9 % Normal 43.0-75.0 [facility] Comment on above: Performed By: #### C BC ####[facility] Ldalbvsfgz6702 [place] [address]Dr. Airam Tripathi Platelet mean volume (Bld) [Entitic vol] 10.2 fL Normal 9.5-13.5 [facility] Comment on above: Performed By: #### C BC ####[facility] M[address]rrxzzaf32[address] [place] [address]Dr. Airam Tripathi PLT 270 103/ul Normal 150-450 [facility] Comment on above: Performed By: #### C BC ####[facility] Wsrraqajis1876 [place] [address]Dr. Airam Tripathi RBC 3.67 106/ul Critically low 4.20-5.40 [facility] Comment on above: Performed By: #### C BC ####[facility] Qjaxyhijqd6855 [place] [address]Dr. Airam Tripathi WBC 7.0 103/ul Normal 4.0-11.0 [facility] Comment on above: Performed By: #### C BC ####[facility] Iqmmyrvshc[address] [place], [place] [id number]. Airam Tripathi PROF 14(COMP METB)on 022 Albumin [Mass/Vol] 3.3 g/dL Critically low 3.4-5.0 [facility] Comment on above: Performed By: #### C MP ####[facility] K[address]mhqstmk[address] [place] [address]Dr. Airam Tripathi Albumin/Globulin [Mass ratio] 1.0 {ratio} Normal [facility] Comment on above: Performed By: #### C MP ####[facility] Sibycaonst24[address] [place] [address]Dr. Airam Tripathi ALP [Catalytic activity/Vol] 107 U/L Normal 46-116 [facility] Comment on above: Performed By: #### C MP ####[facility] Etmoaukskt250[address] [place], [place] [address]Dr. Airam Tripathi ALT [Catalytic activity/Vol] 23 U/L Normal 14-59 [facility] Comment on above: Performed By: #### C MP ####[facility] Yabwpqwhmi5499[address] [place], [place] [address]Dr. Airam Tripathi Anion gap [Moles/Vol] 13.0 mmol/L Normal [facility] Comment on above: Performed By: #### C MP ####[facility] Rwgbjouuxn354[address] [place], [place] [address]Dr. Airam Tripathi AST [Catalytic activity/Vol] 30 U/L Normal 15-37 [facility] Comment on above: Performed By: #### C MP ####[facility] Vjngyeuhlt204[address] [place], [place] [address]Dr. Airam Tripathi Bilirubin [Mass/Vol] 0.2 mg/dL Normal 0.2-1.0 [facility] Comment on above: Performed By: #### C MP ####[facility] Vxkrdouftn097334 [address] [place], [place] [address]Dr. Airam Tripathi Calcium [Mass/Vol] 8.8 mg/dL Normal 8.5-10.1 [facility] Comment on above: Performed By: #### C MP ####[facility] Hdpmhdmdhw065[address] [place], [place] [address]Dr. Airam Tripathi Chloride [Moles/Vol] 103 mmol/L Normal 98-107 [facility] Comment on above: Performed By: #### C MP ####[facility] Yvnzrxbbkk5787 [place] [address]Dr. Airam Tripathi CO2 [Moles/Vol] 24.9 mmol/L Normal 21.0-32.0 [facility] Comment on above: Performed By: #### C MP ####[facility] Zpwttorplu7035[address] [place], [place] [address]Dr. Airam Deuce Creatinine [Mass/Vol] 1.06 mg/dL Critically high 0.55-1.02 [facility] Comment on above: Performed By: #### C MP ####[facility] Ttdznxebrx363[address] [place], [place] [address]Dr. Selenaneil Deuce EGFR-AF [place] >60 Normal >=60 [facility] Comment on above: Performed By: #### C MP ####[facility] Kajagjyvwk14[address] [place], [place] [address]Dr. Airam Deuce EGFR-NON AF [place]IZ[place] 53 mL/min/1.73m2 Critically low >=60 [facility] Comment on above: Performed By: #### C MP ####[facility] Gqucrbvoxy6044[address] [place], [place] [address]Dr. Airam Deuce Globulin (S) [Mass/Vol] 3.2 g/dL Normal [facility] Comment on above: Performed By: #### C MP ####[facility] Tvbginquun04[address] [place], [place] [address]Dr. Airam Deuce Glucose [Mass/Vol] 91 mg/dL Normal 74-106 [facility] Comment on above: Performed By: #### C MP ####[facility] Cttculhjyu6458[address] [place], [place] [address]Dr. Airam Tripathi Potassium [Moles/Vol] 3.9 mmol/L Normal 3.5-5.1 [facility] Comment on above: Performed By: #### C MP ####[facility] Jwwykqizmj18[address] [place], [place] [address]Dr. Airam Tripathi Protein [Mass/Vol] 6.5 g/dL Normal 6.4-8.2 [facility] Comment on above: Performed By: #### C MP ####[facility] Bkylbulilg[address] [place] [address]Dr. Airam Tripathi Sodium [Moles/Vol] 137 mmol/L Normal 136-145 [facility] Comment on above: Performed By: #### C MP ####[facility] Bjepevcrdi7672 [place] [address]Dr. Airam Tripathi Urea nitrogen [Mass/Vol] 27.0 mg/dL Critically high 7.0-18.0 [facility] Comment on above: Performed By: #### C MP ####[facility] Ngeegeodtx3046[address] [place], [place] [address]Dr. Airam Tripathi Urea nitrogen/Creatinine [Mass ratio] 25.5 mg/mg Normal [facility] Comment on above: Performed By: #### C MP ####[facility] Mlewivgxsa152[address] [place], [place] [address]Dr. Airam Tripathi OSMOLALITYon 03-03-2022 Osmolality [Osmolality] 383 mosm/kg Invalid Interpretation Code [id number] [facility] Comment on above: Result Comment: Ve rified by repeat analysis Performed By: #### O SMO ####[facility] Ylfezecheb7099[address] [place], [place] [address]Dr. Airam Tripathi CBC AUTO DIFFon 02-22-2022 BASO # 0.0 103/ul Normal 0.0-0.1 [facility] Comment on above: Performed By: #### C BC ####[facility] Wfwszmpejx6[address] [place], [place] [address]Dr. Airam Deuce Basophils/100 WBC (Bld) 0.4 % Normal 0.2-2.0 [facility] Comment on above: Performed By: #### C BC ####[facility] Mtvnhhbrjp12[address] [place] [address]Dr. Airam Deuce EO # 0.2 103/ul Normal 0.0-0.7 [facility] Comment on above: Performed By: #### C BC ####[facility] Guixxgqlxa3443 [place] [address]Dr. Airam Tripathi Eosinophils/100 WBC (Bld) 3.9 % Normal 0.9-7.0 [facility] Comment on above: Performed By: #### C BC ####[facility] Tyyatkznox5[address] [place] [address]Dr. Airam Tripathi Erythrocyte distribution width (RBC) [Ratio] 13.9 % Normal 11.0-15.0 [facility] Comment on above: Performed By: #### C BC ####[facility] Jdcwmetdph9264[address] [place], [place] [address]Dr. Airam Tripathi Hematocrit (Bld) [Volume fraction] 32.7 % Critically low 36.0-48.0 [facility] Comment on above: Performed By: #### C BC ####[facility] Cdktyepyev9434[address] [place], [place] [address]Dr. Airam Tripathi Hemoglobin (Bld) [Mass/Vol] 10.7 g/dL Critically low 12.0-16.0 [facility] Comment on above: Performed By: #### C BC ####[facility] Onzrlqhpcm2474[address] [place], [place] [address]Dr. Airam Tripathi IG # 0.02 10e3/ul Normal 0.00-0.03 [facility] Comment on above: Performed By: #### C BC ####[facility] Wlyicshtnu9527[address] [place], [place] [address]Dr. Airam Tripathi IG % 0.4 % Normal 0.0-0.5 [facility] Comment on above: Performed By: #### C BC ####[facility] Wmdvjrsnst04[address] [place], [place] [address]Dr. Airam Tripathi LYMPH # 1.2 103/ul Normal 1.2-3.8 [facility] Comment on above: Performed By: #### C BC ####[facility] Wysvfwhkci5924[address] [place], [place] [address]Dr. Airam Tripathi Lymphocytes/100 WBC (Bld) 25.0 % Normal 20.5-60.0 [facility] Comment on above: Performed By: #### C BC ####[facility] Horrakwobu37[address] [place] [address]Dr. Airam Tripathi MANUAL DIFF REQ NO Normal [facility] Comment on above: Performed By: #### C BC ####[facility] Lssiyiqusp1336 [place] [phone]. Airam Tripathi MCH (RBC) [Entitic mass] 30.7 pg Normal 26.7-34.0 [facility] Comment on above: Performed By: #### C BC ####[facility] Mgsdeesmpb69[address] [place] [address]Dr. Airam Tripathi MCHC (RBC) [Mass/Vol] 32.7 g/dL Normal 29.9-35.2 [facility] Comment on above: Performed By: #### C BC ####[facility] Mqqbdksevb4727[address] [place], [place] [address]Dr. Airam Tripathi MCV (RBC) [Entitic vol] 93.7 fL Normal 81.0-99.0 [facility] Comment on above: Performed By: #### C BC ####[facility] Gzxiwizzfj27[address] [place], [place] [address]Dr. Airam Tripathi MONO # 0.4 103/ul Normal 0.3-0.8 [facility] Comment on above: Performed By: #### C BC ####[facility] Xtggokfgex00[address] [place], [place] [address]Dr. Airam Deuce Monocytes/100 WBC (Bld) 7.5 % Normal 1.7-12.0 [facility] Comment on above: Performed By: #### C BC ####[facility] Kzxmjolwjz[address] [place], [place] [address]Dr. Airam Tripathi NEUT # 3.1 103/ul Normal 1.4-6.5 [facility] Comment on above: Performed By: #### C BC ####[facility] Nvkxqpnlfy8789[address] [place], [place] [address]Dr. Airam Deuce Neutrophils/100 WBC (Bld) 62.8 % Normal 43.0-75.0 [facility] Comment on above: Performed By: #### C BC ####[facility] Rrscqhtsqk8607 [place] [address]Dr. Airam Deuce Platelet mean volume (Bld) [Entitic vol] 9.5 fL Normal 9.5-13.5 [facility] Comment on above: Performed By: #### C BC ####[facility] Juhhxoyway65[address] [place] [address]Dr. Selenaneil Deuce PLT 250 103/ul Normal 150-450 [facility] Comment on above: Performed By: #### C BC ####[facility] Vsraufwqqf5085 [place] [address]Dr. Airam Tripathi RBC 3.49 106/ul Critically low 4.20-5.40 [facility] Comment on above: Performed By: #### C BC ####[facility] Bjedixmklo5635 [place] [address]Dr. Airam Tripathi WBC 4.9 103/ul Normal 4.0-11.0 [facility] Comment on above: Performed By: #### C BC ####[facility] Uewrqaxcvx35[address] [place] [address]Dr. Airam Tripathi PROF 14(COMP METB)on 022 Albumin [Mass/Vol] 3.3 g/dL Critically low 3.4-5.0 [facility] Comment on above: Performed By: #### C MP ####[facility] Vgqlmpewxl1303 [place] [address]Dr. Airam Tripathi Albumin/Globulin [Mass ratio] 1.0 {ratio} Normal [facility] Comment on above: Performed By: #### C MP ####[facility] Amzsharwcf5476 [place] [address]Dr. Airam Tripathi ALP [Catalytic activity/Vol] 127 U/L Critically high 46-116 [facility] Comment on above: Performed By: #### C MP ####[facility] Voudlwzaer4702 [place] [address]Dr. Airam Tripathi ALT [Catalytic activity/Vol] 22 U/L Normal 14-59 [facility] Comment on above: Performed By: #### C MP ####[facility] Pbijpmxuqr0650 [place] [address]Dr. Airam Tripathi Anion gap [Moles/Vol] 11.9 mmol/L Normal Th [facility] Comment on above: Performed By: #### C MP ####[facility] Sigvhmemwm8871 [place] [address]Dr. Airam Tripathi AST [Catalytic activity/Vol] 21 U/L Normal 15-37 [facility] Comment on above: Performed By: #### C MP ####[facility] Dczobutspf7965 [place] [address]Dr. Airam Tripathi Bilirubin [Mass/Vol] 0.3 mg/dL Normal 0.2-1.0 [facility] Comment on above: Performed By: #### C MP ####[facility] Miwkeunbot97[address] [place], [place] [address]Dr. Airam Tripathi Calcium [Mass/Vol] 8.6 mg/dL Normal 8.5-10.1 [facility] Comment on above: Performed By: #### C MP ####[facility] Wmbqvrnsba4[address] [place], [place] [address]Dr. Airam Tripathi Chloride [Moles/Vol] 105 mmol/L Normal 98-107 [facility] Comment on above: Performed By: #### C MP ####[facility] Pohxjokdkf[address] [place], [place] [address]Dr. Airam Tripathi CO2 [Moles/Vol] 23.6 mmol/L Normal 21.0-32.0 [facility] Comment on above: Performed By: #### C MP ####[facility] Xtypffmadl0654[address] [place], [place] [address]Dr. Airam Tripathi Creatinine [Mass/Vol] 1.29 mg/dL Critically high 0.55-1.02 [facility] Comment on above: Performed By: #### C MP ####[facility] Rnkrwtufbm7[address] [place], [place] [address]Dr. Airam Tripathi EGFR-AF [place]IZ[place] 51 mL/min/1.73m2 Critically low >=60 [facility] Comment on above: Performed By: #### C MP ####[facility] Majqmewwxs110[address] [place] [phone]. Airam Tripathi EGFR-NON AF [place]IZ[place] 42 mL/min/1.73m2 Critically low >=60 [facility] Comment on above: Performed By: #### C MP ####[facility] Ztncfksmox2058 [place] [phone]. Airam Tripathi Globulin (S) [Mass/Vol] 3.2 g/dL Normal [facility] Comment on above: Performed By: #### C MP ####[facility] Wyzgwngndj3709 [place] [phone]. Airam Tripathi Glucose [Mass/Vol] 94 mg/dL Normal 74-106 [facility] Comment on above: Performed By: #### C MP ####[facility] Uktccmhaur47[address] [place] [address]Dr. Airam Tripathi Potassium [Moles/Vol] 3.5 mmol/L Normal 3.5-5.1 [facility] Comment on above: Performed By: #### C MP ####[facility] Axlgnbgssv1089 [place] [phone]. Airam Tripathi Protein [Mass/Vol] 6.5 g/dL Normal 6.4-8.2 [facility] Comment on above: Performed By: #### C MP ####[facility] Nglzcirean3458 [place] [phone]. Airam Tripathi Sodium [Moles/Vol] 137 mmol/L Normal 136-145 [facility] Comment on above: Performed By: #### C MP ####[facility] Uujgwlctlf6[address] [place] [address]Dr. Airam Tripathi Urea nitrogen [Mass/Vol] 37.0 mg/dL Critically high 7.0-18.0 [facility] Comment on above: Performed By: #### C MP ####[facility] Ixpcfueeqn8[address] [place] [address]Dr. Airam Tripathi Urea nitrogen/Creatinine [Mass ratio] 28.7 mg/mg Normal [facility] Comment on above: Performed By: #### C MP ####[facility] Qitxliniaw[address] [place] [address]Dr. Airam Tripathi OSMOLALITYon 02-20-2022 Osmolality [Osmolality] 283 mosm/kg Normal 275-295 [facility] Comment on above: Performed By: #### O SMO ####[facility] Frihvlsfhu[address] [place] [address]Dr. Airam Tripathi CBC AUTO DIFFon 02-17-2022 BASO # 0.0 103/ul Normal 0.0-0.1 [facility] Comment on above: Performed By: #### C BC ####[facility] Qkaspvsxti167[address] [place], [place] [address]Dr. Airam Deuce Basophils/100 WBC (Bld) 0.3 % Normal 0.2-2.0 [facility] Comment on above: Performed By: #### C BC ####[facility] Uabxxsjedv8[address] [place], [place] [address]Dr. Airam Tripathi EO # 0.1 103/ul Normal 0.0-0.7 [facility] Comment on above: Performed By: #### C BC ####[facility] Kptgblfdoc2264[address] [place], [place] [address]Dr. Airam Tripathi Eosinophils/100 WBC (Bld) 1.6 % Normal 0.9-7.0 [facility] Comment on above: Performed By: #### C BC ####[facility] Zzeqsmwzyv210034 [address] [place], [place] [address]Dr. Airam Tripathi Erythrocyte distribution width (RBC) [Ratio] 13.4 % Normal 11.0-15.0 [facility] Comment on above: Performed By: #### C BC ####[facility] Hrydpeuatq64[address] [place], [place] [address]Dr. Airam Tripathi Hematocrit (Bld) [Volume fraction] 31.4 % Critically low 36.0-48.0 [facility] Comment on above: Performed By: #### C BC ####[facility] Dvdsdanpsr856[address] [place], [place] [address]Dr. Airam Tripathi Hemoglobin (Bld) [Mass/Vol] 10.0 g/dL Critically low 12.0-16.0 [facility] Comment on above: Performed By: #### C BC ####[facility] X[address]ltfvcf8[address] [place] [phone]. Airam Tripathi IG # 0.03 10e3/ul Normal 0.00-0.03 [facility] Comment on above: Performed By: #### C BC ####[facility] Tzhzmsjarz4840 [place] [address]Dr. Airam Tripathi IG % 0.4 % Normal 0.0-0.5 [facility] Comment on above: Performed By: #### C BC ####[facility] Tzwghsjral[address] [place] [address]Dr. Airam Tripathi LYMPH # 1.6 103/ul Normal 1.2-3.8 [facility] Comment on above: Performed By: #### C BC ####[facility] Alqulyjmcc20[address] [place], [place] [address]Dr. Airam Tripathi Lymphocytes/100 WBC (Bld) 24.5 % Normal 20.5-60.0 [facility] Comment on above: Performed By: #### C BC ####[facility] Lqvxmmcnvi57[address] [place] [address]Dr. Airam Tripathi MANUAL DIFF REQ NO Normal [facility] Comment on above: Performed By: #### C BC ####[facility] Zzzknnhvzj4020[address] [place], [place] [address]Dr. Airam Tripathi MCH (RBC) [Entitic mass] 30.2 pg Normal 26.7-34.0 [facility] Comment on above: Performed By: #### C BC ####[facility] Sptwcnwbkv245[address] [place], [place] [address]Dr. Airam Tripathi MCHC (RBC) [Mass/Vol] 31.8 g/dL Normal 29.9-35.2 [facility] Comment on above: Performed By: #### C BC ####[facility] Ryvbhrtmvj78[address] [place] [address]Dr. Airam Tripathi MCV (RBC) [Entitic vol] 94.9 fL Normal 81.0-99.0 [facility] Comment on above: Performed By: #### C BC ####[facility] Kubpulkdog4[address] [place] [address]Dr. Airam Tripathi MONO # 0.4 103/ul Normal 0.3-0.8 [facility] Comment on above: Performed By: #### C BC ####[facility] Eqqcimddts9514 [place] [address]Dr. Airam Tripathi Monocytes/100 WBC (Bld) 5.8 % Normal 1.7-12.0 [facility] Comment on above: Performed By: #### C BC ####[facility] Zvgdqclqft3541 [place] [address]Dr. Airam Tripathi NEUT # 4.5 103/ul Normal 1.4-6.5 [facility] Comment on above: Performed By: #### C BC ####[facility] Fccogmjnwa4779 [place] [address]Dr. Airam Tripathi Neutrophils/100 WBC (Bld) 67.4 % Normal 43.0-75.0 [facility] Comment on above: Performed By: #### C BC ####[facility] Wlkaphgmlr2950 [place] [address]Dr. Airam Tripathi Platelet mean volume (Bld) [Entitic vol] 9.6 fL Normal 9.5-13.5 [facility] Comment on above: Performed By: #### C BC ####[facility] Bhabpvahkj63[address] [place] [address]Dr. Airam Tripathi PLT 251 103/ul Normal 150-450 [facility] Comment on above: Performed By: #### C BC ####[facility] Zzytazorlu1144 [place] [address]Dr. Airam Tripathi RBC 3.31 106/ul Critically low 4.20-5.40 [facility] Comment on above: Performed By: #### C BC ####[facility] Unxeacocfs9632 [place] [address]Dr. Airam Tripathi WBC 6.7 103/ul Normal 4.0-11.0 [facility] Comment on above: Performed By: #### C BC ####[facility] Metbzxopnj736134 [address] [place], [place] [address]Dr. Airam Tripathi PROF 14(COMP METB)on 022 Albumin [Mass/Vol] 3.5 g/dL Normal 3.4-5.0 [facility] Comment on above: Performed By: #### C MP ####[facility] Ahyusrlbvj1135[address] [place], [place] [address]Dr. Airam Tripathi Albumin/Globulin [Mass ratio] 1.2 {ratio} Normal [facility] Comment on above: Performed By: #### C MP ####[facility] Bvwwzhfdaj478334 [address] [place], [place] [address]Dr. Airam Tripathi ALP [Catalytic activity/Vol] 130 U/L Critically high 46-116 [facility] Comment on above: Performed By: #### C MP ####[facility] Maobmwhqxa715834 [address] [place], [place] [address]Dr. Airam Tripathi ALT [Catalytic activity/Vol] 18 U/L Normal 14-59 [facility] Comment on above: Performed By: #### C MP ####[facility] Mpxaumdedf910634 [address] [place], [place] [address]Dr. Airam Tripathi Anion gap [Moles/Vol] 14.0 mmol/L Normal [facility] Comment on above: Performed By: #### C MP ####[facility] Kpwmaolavg870734 [address] [place], [place] [address]Dr. Airam Tripathi AST [Catalytic activity/Vol] 20 U/L Normal 15-37 [facility] Comment on above: Performed By: #### C MP ####[facility] Fyndrzwyav438534 [address] [place], [place] [address]Dr. Airam Tripathi Bilirubin [Mass/Vol] 0.3 mg/dL Normal 0.2-1.0 [facility] Comment on above: Performed By: #### C MP ####[facility] Pbfaifqqof079434 [address] [place], [place] [address]Dr. Airam Tripathi Calcium [Mass/Vol] 8.5 mg/dL Normal 8.5-10.1 [facility] Comment on above: Performed By: #### C MP ####[facility] Wknitvlsrw25[address] [place] [address]Dr. Airam Tripathi Chloride [Moles/Vol] 100 mmol/L Normal 98-107 [facility] Comment on above: Performed By: #### C MP ####[facility] Gcxvvijdkk1181 [place] [address]Dr. Airam Tripathi CO2 [Moles/Vol] 22.7 mmol/L Normal 21.0-32.0 [facility] Comment on above: Performed By: #### C MP ####[facility] Isxrkhlolt54[address] [place] [address]Dr. Airam Tripathi Creatinine [Mass/Vol] 1.28 mg/dL Critically high 0.55-1.02 [facility] Comment on above: Performed By: #### C MP ####[facility] Gsfzbvsjtx9352 [place] [address]Dr. Airam Tripathi EGFR-AF [place]IZ[place] 52 mL/min/1.73m2 Critically low >=60 [facility] Comment on above: Performed By: #### C MP ####[facility] Mqcswfbkwf303[address] [place], [place] [address]Dr. Airam Tripathi EGFR-NON AF CITIZEN [place] 43 mL/min/1.73m2 Critically low >=60 [facility] Comment on above: Performed By: #### C MP ####[facility] Lbbufkpuei6863 [place] [address]Dr. Airam Tripathi Globulin (S) [Mass/Vol] 2.9 g/dL Normal [facility] Comment on above: Performed By: #### C MP ####[facility] Vkpcmnfvhh9989 [place] [address]Dr. Airam Tripathi Glucose [Mass/Vol] 93 mg/dL Normal 74-106 [facility] Comment on above: Performed By: #### C MP ####[facility] Mmeyrelymh9705 [place] [address]Dr. Airam Tripathi Potassium [Moles/Vol] 3.7 mmol/L Normal 3.5-5.1 [facility] Comment on above: Performed By: #### C MP ####[facility] Qvfzgvvcsb348734 [address] [place], [place] [address]Dr. Airam Tripathi Protein [Mass/Vol] 6.4 g/dL Normal 6.4-8.2 [facility] Comment on above: Performed By: #### C MP ####[facility] Hpyzxifsuz737[address] [place], [place] [address]Dr. Airam Tripathi Sodium [Moles/Vol] 133 mmol/L Critically low 136-145 [facility] Comment on above: Performed By: #### C MP ####[facility] Maskgemfft679034 [address] [place], [place] [address]Dr. Airam Tripathi Urea nitrogen [Mass/Vol] 44.0 mg/dL Critically high 7.0-18.0 [facility] Comment on above: Performed By: #### C MP ####[facility] Crwbrqjunt095934 [address] [place], [place] [address]Dr. Airam Tripathi Urea nitrogen/Creatinine [Mass ratio] 34.4 mg/mg Normal [facility] Comment on above: Performed By: #### C MP ####[facility] Ioszomfuks946934 [address] [place], [place] [address]Dr. Airam Tripathi OSMOLALITYon 02-10-2022 Osmolality [Osmolality] 288 mosm/kg Normal 275-295 [facility] Comment on above: Performed By: #### O SMO ####[facility] Nkbrfbgafn035[address] [place], [place] [address]Dr. Airam Tripathi CBC AUTO DIFFon 02-08-2022 BASO # 0.0 103/ul Normal 0.0-0.1 [facility] Comment on above: Performed By: #### C BC ####[facility] Yiusoiqeik636[address] [place], [place] [address]Dr. Airam Deuce Basophils/100 WBC (Bld) 0.3 % Normal 0.2-2.0 [facility] Comment on above: Performed By: #### C BC ####[facility] Wivgploshx355834 [address] [place], [place] [address]Dr. Airam Deuce EO # 0.2 103/ul Normal 0.0-0.7 [facility] Comment on above: Performed By: #### C BC ####[facility] Lrspzishpi8034 [place] [address]Dr. Airam Tripathi Eosinophils/100 WBC (Bld) 2.1 % Normal 0.9-7.0 [facility] Comment on above: Performed By: #### C BC ####[facility] Cjkqntriwe8099 [place] [address]Dr. Airam Tripathi Erythrocyte distribution width (RBC) [Ratio] 13.4 % Normal 11.0-15.0 [facility] Comment on above: Performed By: #### C BC ####[facility] Fzlbhrnxsm837834 [address] [place], [place] [address]Dr. Airam Tripathi Hematocrit (Bld) [Volume fraction] 35.1 % Critically low 36.0-48.0 [facility] Comment on above: Performed By: #### C BC ####[facility] Xndrzkydui776734 [address] [place], [place] [address]Dr. Airam Tripathi Hemoglobin (Bld) [Mass/Vol] 10.9 g/dL Critically low 12.0-16.0 [facility] Comment on above: Performed By: #### C BC ####[facility] Sfklwhorbw516634 [address] [place], [place] [address]Dr. Airam Tripathi IG # 0.03 10e3/ul Normal 0.00-0.03 [facility] Comment on above: Performed By: #### C BC ####[facility] Dcbpnxrllw177634 [address] [place], [place] [address]Dr. Airam Tripathi IG % 0.3 % Normal 0.0-0.5 [facility] Comment on above: Performed By: #### C BC ####[facility] Ojnrztetia106434 [address] [place], [place] [address]Dr. Airam Tripathi LYMPH # 1.3 103/ul Normal 1.2-3.8 [facility] Comment on above: Performed By: #### C BC ####[facility] Jqvihogicn897834 [address] [place], [place] [address]Dr. Airam Tripathi Lymphocytes/100 WBC (Bld) 13.1 % Critically low 20.5-60.0 [facility] Comment on above: Performed By: #### C BC ####[facility] Csyrezxkqr26[address] [place] [address]Dr. Airam Tripathi MANUAL DIFF REQ NO Normal [facility] Comment on above: Performed By: #### C BC ####[facility] Swpxihlvpf1304 [place] [phone]. Airam Tripathi MCH (RBC) [Entitic mass] 30.4 pg Normal 26.7-34.0 [facility] Comment on above: Performed By: #### C BC ####[facility] Rxucxlozzu117334 [address] [place], [place] [address]Dr. Airam Tripathi MCHC (RBC) [Mass/Vol] 31.1 g/dL Normal 29.9-35.2 [facility] Comment on above: Performed By: #### C BC ####[facility] Dkrnlcmqyd048934 [address] [place], [place] [address]Dr. Airam Tripathi MCV (RBC) [Entitic vol] 98.0 fL Normal 81.0-99.0 [facility] Comment on above: Performed By: #### C BC ####[facility] Jmtazouwtn[address] [place], [place] [address]Dr. Airam Tripathi MONO # 0.5 103/ul Normal 0.3-0.8 [facility] Comment on above: Performed By: #### C BC ####[facility] Dnbvqyezen0501[address] [place], [place] [address]Dr. Airam Deuce Monocytes/100 WBC (Bld) 4.7 % Normal 1.7-12.0 [facility] Comment on above: Performed By: #### C BC ####[facility] Atkuxvemkh1299[address] [place], [place] [address]Dr. Airam Tripathi NEUT # 7.7 103/ul Critically high 1.4-6.5 [facility] Comment on above: Performed By: #### C BC ####[facility] Kbcysvulci65[address] [place], [place] [address]Dr. Airam Deuce Neutrophils/100 WBC (Bld) 79.5 % Critically high 43.0-75.0 [facility] Comment on above: Performed By: #### C BC ####[facility] Qpjrcxbmhq7114 [place] [address]Dr. Selenaneil Deuce Platelet mean volume (Bld) [Entitic vol] 9.6 fL Normal 9.5-13.5 [facility] Comment on above: Performed By: #### C BC ####[facility] Fvsycaofmj8743 [place] [address]Dr. Airam Tripathi PLT 268 103/ul Normal 150-450 [facility] Comment on above: Performed By: #### C BC ####[facility] Zjuxikziay9555 [place] [address]Dr. Airam Tripathi RBC 3.58 106/ul Critically low 4.20-5.40 [facility] Comment on above: Performed By: #### C BC ####[facility] Qcgczjgkng3326 [place] [address]Dr. Airam Tripathi WBC 9.7 103/ul Normal 4.0-11.0 [facility] Comment on above: Performed By: #### C BC ####[facility] Gwrbbbixti7695 [place] [address]Dr. Airam Tripathi PROF 14(COMP METB)on 022 Albumin [Mass/Vol] 3.6 g/dL Normal 3.4-5.0 [facility] Comment on above: Performed By: #### C MP ####[facility] Fbuxxgolss9087 [place] [address]Dr. Airam Tripathi Albumin/Globulin [Mass ratio] 1.1 {ratio} Normal [facility] Comment on above: Performed By: #### C MP ####[facility] Aioxiiukag38[address] [place] [address]Dr. Airam Tripathi ALP [Catalytic activity/Vol] 131 U/L Critically high 46-116 [facility] Comment on above: Performed By: #### C MP ####[facility] Zbbjyhyvzo2603 [place] [address]Dr. Airam Tripathi ALT [Catalytic activity/Vol] 22 U/L Normal 14-59 [facility] Comment on above: Performed By: #### C MP ####[facility] Zcuyzjxtud1142 [place] [phone]. Airam Tripathi Anion gap [Moles/Vol] 13.3 mmol/L Normal [facility] Comment on above: Performed By: #### C MP ####[facility] Ljhnbblfbe4532 [place] [address]Dr. Airam Tripathi AST [Catalytic activity/Vol] 23 U/L Normal 15-37 [facility] Comment on above: Performed By: #### C MP ####[facility] Jxfpjyibpr2840 [place] [address]Dr. Airam Tripathi Bilirubin [Mass/Vol] 0.3 mg/dL Normal 0.2-1.0 [facility] Comment on above: Performed By: #### C MP ####[facility] Nvwtkjnpbx6405 [place] [address]Dr. Airam Tripathi Calcium [Mass/Vol] 8.7 mg/dL Normal 8.5-10.1 [facility] Comment on above: Performed By: #### C MP ####[facility] Mrbjpqjphq0521 [place] [address]Dr. Airam Tripathi Chloride [Moles/Vol] 104 mmol/L Normal 98-107 [facility] Comment on above: Performed By: #### C MP ####[facility] Ypbfntjezh7543 [place] [address]Dr. Airam Tripathi CO2 [Moles/Vol] 22.0 mmol/L Normal 21.0-32.0 [facility] Comment on above: Performed By: #### C MP ####[facility] Yuqlilbhqr1175 [place] [address]Dr. Airam Tripathi Creatinine [Mass/Vol] 1.20 mg/dL Critically high 0.55-1.02 [facility] Comment on above: Performed By: #### C MP ####[facility] Socdoytmwv9865 [place] [address]Dr. Airam Tripathi EGFR-AF [place] 56 mL/min/1.73m2 Critically low >=60 [facility] Comment on above: Performed By: #### C MP ####[facility] Yzbpxvenyp9292 [place] [address]Dr. Airam Tripathi EGFR-NON AF [place]IZ[place] 46 mL/min/1.73m2 Critically low >=60 [facility] Comment on above: Performed By: #### C MP ####[facility] Jcvnqvwzhv9982 [place] [address]Dr. Airam Tripathi Globulin (S) [Mass/Vol] 3.2 g/dL Normal [facility] Comment on above: Performed By: #### C MP ####[facility] Wpdjltmbmn2345 [place] [address]Dr. Airam Tripathi Glucose [Mass/Vol] 98 mg/dL Normal 74-106 [facility] Comment on above: Performed By: #### C MP ####[facility] Kurmosynyo4[address] [place] [address]Dr. Airam Tripathi Potassium [Moles/Vol] 4.3 mmol/L Normal 3.5-5.1 [facility] Comment on above: Performed By: #### C MP ####[facility] Jifmhtvdfo9218 [place] [address]Dr. Airam Tripathi Protein [Mass/Vol] 6.8 g/dL Normal 6.4-8.2 [facility] Comment on above: Performed By: #### C MP ####[facility] Emxgvmmcvx1744 [place] [address]Dr. Airam Tripathi Sodium [Moles/Vol] 135 mmol/L Critically low 136-145 [facility] Comment on above: Performed By: #### C MP ####[facility] Qqjuusbiem6464 [place] [address]Dr. Airam Tripathi Urea nitrogen [Mass/Vol] 33.0 mg/dL Critically high 7.0-18.0 [facility] Comment on above: Performed By: #### C MP ####[facility] Jcjqhyhkqd1726 [place] [phone]. Airam Tripathi Urea nitrogen/Creatinine [Mass ratio] 27.5 mg/mg Normal [facility] Comment on above: Performed By: #### C MP ####[facility] Rbxabenrbh018[address] [place], [place] [address]Dr. Airam Tripathi OSMOLALITYon 02-07-2022 Osmolality [Osmolality] 299 mosm/kg Critically high 275-295 [facility] Comment on above: Performed By: #### O SMO ####[facility] Mapykjople905934 [address] [place], [place] [address]Dr. Airam Tripathi CBC AUTO DIFFon 02-03-2022 BASO # 0.0 103/ul Normal 0.0-0.1 [facility] Comment on above: Performed By: #### C BC ####[facility] Uwtovxznok4432[address] [place], [place] [address]Dr. Airam Tripathi Basophils/100 WBC (Bld) 0.4 % Normal 0.2-2.0 [facility] Comment on above: Performed By: #### C BC ####[facility] Sdkbptkjuk5820[address] [place], [place] [address]Dr. Selenaneil Deuce EO # 0.3 103/ul Normal 0.0-0.7 [facility] Comment on above: Performed By: #### C BC ####[facility] Bihwbznfds3350[address] [place], [place] [address]Dr. Airam Tripathi Eosinophils/100 WBC (Bld) 3.6 % Normal 0.9-7.0 [facility] Comment on above: Performed By: #### C BC ####[facility] Yptzovusyr3327[address] [place], [place] [address]Dr. Airam Tripathi Erythrocyte distribution width (RBC) [Ratio] 13.2 % Normal 11.0-15.0 [facility] Comment on above: Performed By: #### C BC ####[facility] Aeigtqapoe05[address] [place], [place] [address]Dr. Airam Tripathi Hematocrit (Bld) [Volume fraction] 32.0 % Critically low 36.0-48.0 [facility] Comment on above: Performed By: #### C BC ####[facility] Uaemifesqj37[address] [place], [place] [address]Dr. Airam Tripathi Hemoglobin (Bld) [Mass/Vol] 9.8 g/dL Critically low 12.0-16.0 [facility] Comment on above: Performed By: #### C BC ####[facility] Xnwjcxtnqw8346 [place] [phone]. Airam Tripathi IG # 0.03 10e3/ul Normal 0.00-0.03 [facility] Comment on above: Performed By: #### C BC ####[facility] Ujjkopminm0536 [place] [address]Dr. Airam Deuce IG % 0.4 % Normal 0.0-0.5 [facility] Comment on above: Performed By: #### C BC ####[facility] Ozfoxgfkms16[address] [place] [address]Dr. Selenaneil Tripathi LYMPH # 1.7 103/ul Normal 1.2-3.8 [facility] Comment on above: Performed By: #### C BC ####[facility] Mmneraovxx7678 [place] [address]Dr. Airam Tripathi Lymphocytes/100 WBC (Bld) 24.8 % Normal 20.5-60.0 [facility] Comment on above: Performed By: #### C BC ####[facility] Hjpqgmlyyh4824 [place] [address]Dr. Selenaneil Tripathi MANUAL DIFF REQ NO Normal [facility] Comment on above: Performed By: #### C BC ####[facility] Ljcfuevjbr6731 [place] [address]Dr. Selenaneil Tripathi MCH (RBC) [Entitic mass] 29.6 pg Normal 26.7-34.0 [facility] Comment on above: Performed By: #### C BC ####[facility] Igeyzcdjrl[address] [place], [place] [id number]. Airam Deuce MCHC (RBC) [Mass/Vol] 30.6 g/dL Normal 29.9-35.2 [facility] Comment on above: Performed By: #### C BC ####[facility] Tvmtkamebb1943 [place] [address]Dr. Selenaneil Tripathi MCV (RBC) [Entitic vol] 96.7 fL Normal 81.0-99.0 [facility] Comment on above: Performed By: #### C BC ####[facility] Qtdhytjjwk7992 [place] [phone]. Airam Tripathi MONO # 0.4 103/ul Normal 0.3-0.8 [facility] Comment on above: Performed By: #### C BC ####[facility] Jnuxneajlr6871 [place] [address]Dr. Airam Tripathi Monocytes/100 WBC (Bld) 6.3 % Normal 1.7-12.0 [facility] Comment on above: Performed By: #### C BC ####[facility] Ycdzrobiya9897 [place] [address]Dr. Airam Tripathi NEUT # 4.5 103/ul Normal 1.4-6.5 [facility] Comment on above: Performed By: #### C BC ####[facility] Jqlipwwvux8379 [place] [phone]. Airam Tripathi Neutrophils/100 WBC (Bld) 64.5 % Normal 43.0-75.0 [facility] Comment on above: Performed By: #### C BC ####[facility] [address]yss[address] [place] [phone]. Airam Tirpathi Platelet mean volume (Bld) [Entitic vol] 9.3 fL Critically low 9.5-13.5 [facility] Comment on above: Performed By: #### C BC ####[facility] Tqykpadllh[address] [place] [phone]. Airam Tripathi PLT 243 103/ul Normal 150-450 [facility] Comment on above: Performed By: #### C BC ####[facility] Wzdqlmpltq0030 [place] [phone]. Airam Tripathi RBC 3.31 106/ul Critically low 4.20-5.40 [facility] Comment on above: Performed By: #### C BC ####[facility] Snlpojeqve74[address] [place] [phone]. Airam Tripathi WBC 7.0 103/ul Normal 4.0-11.0 [facility] Comment on above: Performed By: #### C BC ####[facility] Bcihdblnei[address] [place] [address]Dr. Airam Tripathi PROF 14(COMP METB)on 022 Albumin [Mass/Vol] 3.3 g/dL Critically low 3.4-5.0 [facility] Comment on above: Performed By: #### C MP ####[facility] Gnhkmfdayg[address] [place] [address]Dr. Airam Tripathi Albumin/Globulin [Mass ratio] 1.1 {ratio} Normal [facility] Comment on above: Performed By: #### C MP ####[facility] Ygsjznkgtv[address] [place], [place] [address]Dr. Airam Tripathi ALP [Catalytic activity/Vol] 126 U/L Critically high 46-116 [facility] Comment on above: Performed By: #### C MP ####[facility] Jkbpfmpezk53[address] [place], [place] [address]Dr. Airam Tripathi ALT [Catalytic activity/Vol] 21 U/L Normal 14-59 [facility] Comment on above: Performed By: #### C MP ####[facility] Kvtiackrdd9[address] [place], [place] [address]Dr. Airam Tripathi Anion gap [Moles/Vol] 11.8 mmol/L Normal [facility] Comment on above: Performed By: #### C MP ####[facility] Ybzuivfkqt0000[address] [place], [place] [address]Dr. Airam Tripathi AST [Catalytic activity/Vol] 22 U/L Normal 15-37 [facility] Comment on above: Performed By: #### C MP ####[facility] Wdujqonhpt1414[address] [place], [place] [address]Dr. Airam Tripathi Bilirubin [Mass/Vol] 0.3 mg/dL Normal 0.2-1.0 [facility] Comment on above: Performed By: #### C MP ####[facility] Btbpbiwlih5[address] [place], [place] [address]Dr. Airam Tripathi Calcium [Mass/Vol] 8.7 mg/dL Normal 8.5-10.1 [facility] Comment on above: Performed By: #### C MP ####[facility] Utdkscunjz87[address] [place] [phone]. Airam Tripathi Chloride [Moles/Vol] 102 mmol/L Normal 98-107 [facility] Comment on above: Performed By: #### C MP ####[facility] Agpcuabtfj[address] [place] [phone]. Airam Tripathi CO2 [Moles/Vol] 25.5 mmol/L Normal 21.0-32.0 [facility] Comment on above: Performed By: #### C MP ####[facility] Crbcormwpk[address] [place] [address]Dr. Airam Tripathi Creatinine [Mass/Vol] 1.43 mg/dL Critically high 0.55-1.02 [facility] Comment on above: Performed By: #### C MP ####[facility] Aoojfgyxne035[address] [place], [place] [address]Dr. Airam Tripathi EGFR-AF [place]IZ[place] 46 mL/min/1.73m2 Critically low >=60 [facility] Comment on above: Performed By: #### C MP ####[facility] Wnsjxgsvsr7[address] [place], [place] [address]Dr. Airam Tripathi EGFR-NON AF CITIZEN [place] 38 mL/min/1.73m2 Critically low >=60 [facility] Comment on above: Performed By: #### C MP ####[facility] Qbgozpzpub[address] [place] [address]Dr. Airam Tripathi Globulin (S) [Mass/Vol] 2.9 g/dL Normal [facility] Comment on above: Performed By: #### C MP ####[facility] Hqbyjobayj07[address] [place] [address]Dr. Airam Tripathi Glucose [Mass/Vol] 83 mg/dL Normal 74-106 [facility] Comment on above: Performed By: #### C MP ####[facility] Yxlkexmjic35[address] [place], [place] [address]Dr. Airam Tripathi Potassium [Moles/Vol] 4.3 mmol/L Normal 3.5-5.1 [facility] Comment on above: Performed By: #### C MP ####[facility] Xldevhdmtl5237 [place] [phone]. Airam Tripathi Protein [Mass/Vol] 6.2 g/dL Critically low 6.4-8.2 [facility] Comment on above: Performed By: #### C MP ####[facility] Uluinvfdaq4811[address] [place], [place] [address]Dr. Airam Tripathi Sodium [Moles/Vol] 135 mmol/L Critically low 136-145 [facility] Comment on above: Performed By: #### C MP ####[facility] Oknssgjnjk146034 [address] [place], [place] [address]Dr. Airam Deuce Urea nitrogen [Mass/Vol] 39.0 mg/dL Critically high 7.0-18.0 [facility] Comment on above: Performed By: #### C MP ####[facility] Zrqxruvgcy550634 [address] [place], [place] [address]Dr. Airam Tripathi Urea nitrogen/Creatinine [Mass ratio] 27.3 mg/mg Normal [facility] Comment on above: Performed By: #### C MP ####[facility] Tzzsfvqwzx9[address] [place], [place] [address]Dr. Airam Deuce OSMOLALITYon 02-02-2022 Osmolality [Osmolality] 292 mosm/kg Normal 275-295 [facility] Comment on above: Performed By: #### O SMO ####[facility] Hpubapekxz0169[address] [place], [place] [address]Dr. Airam Deuce CBC AUTO DIFFon 01-27-2022 BASO # 0.0 103/ul Normal 0.0-0.1 [facility] Comment on above: Performed By: #### C BC ####[facility] Xkjfeymyer3489[address] [place], [place] [address]Dr. Airam Tripathi Basophils/100 WBC (Bld) 0.4 % Normal 0.2-2.0 [facility] Comment on above: Performed By: #### C BC ####[facility] Uqexybfewy5466[address] [place], [place] [address]Dr. Airam Tripathi EO # 0.2 103/ul Normal 0.0-0.7 [facility] Comment on above: Performed By: #### C BC ####[facility] Ufanhjwemv7035 [place] [phone]. Aiarm Tripathi Eosinophils/100 WBC (Bld) 3.4 % Normal 0.9-7.0 [facility] Comment on above: Performed By: #### C BC ####[facility] Veqcskbfva37[address] [place] [address]Dr. Airam Tripathi Erythrocyte distribution width (RBC) [Ratio] 13.1 % Normal 11.0-15.0 [facility] Comment on above: Performed By: #### C BC ####[facility] Nyveindvrc5422[address] [place], [place] [address]Dr. Airam Tripathi Hematocrit (Bld) [Volume fraction] 31.6 % Critically low 36.0-48.0 [facility] Comment on above: Performed By: #### C BC ####[facility] Ynbjgfwiuf8[address] [place], [place] [address]Dr. Airam Tripathi Hemoglobin (Bld) [Mass/Vol] 9.9 g/dL Critically low 12.0-16.0 [facility] Comment on above: Performed By: #### C BC ####[facility] Rnauejjyff713434 [address] [place], [place] [address]Dr. Airam Tripathi IG # 0.02 10e3/ul Normal 0.00-0.03 [facility] Comment on above: Performed By: #### C BC ####[facility] Ijqwzujaua648[address] [place], [place] [address]Dr. Airam Tripathi IG % 0.4 % Normal 0.0-0.5 [facility] Comment on above: Performed By: #### C BC ####[facility] Icorszekfe486[address] [place], [place] [address]Dr. Airam Tripathi LYMPH # 1.0 103/ul Critically low 1.2-3.8 [facility] Comment on above: Performed By: #### C BC ####[facility] Kdifdfmszj009734 [address] [place], [place] [address]Dr. Airam Tripathi Lymphocytes/100 WBC (Bld) 17.4 % Critically low 20.5-60.0 [facility] Comment on above: Performed By: #### C BC ####[facility] [address]ybxkraexp[address] [place] [address]Dr. Airam Tripathi MANUAL DIFF REQ NO Normal [facility] Comment on above: Performed By: #### C BC ####[facility] Iyagxbecdt68[address] [place] [phone]. Airam Tripathi MCH (RBC) [Entitic mass] 30.1 pg Normal 26.7-34.0 [facility] Comment on above: Performed By: #### C BC ####[facility] Rtuvnyoeak[address] [place] [address]Dr. Airam Tripathi MCHC (RBC) [Mass/Vol] 31.3 g/dL Normal 29.9-35.2 [facility] Comment on above: Performed By: #### C BC ####[facility] Xwywapkyil4425[address] [place], [place] [address]Dr. Airam Tripathi MCV (RBC) [Entitic vol] 96.0 fL Normal 81.0-99.0 [facility] Comment on above: Performed By: #### C BC ####[facility] Pmzzoujcfr11[address] [place], [place] [address]Dr. Airam Tripathi MONO # 0.5 103/ul Normal 0.3-0.8 [facility] Comment on above: Performed By: #### C BC ####[facility] Zsoylegazu0574[address] [place], [place] [address]Dr. Airam Tripathi Monocytes/100 WBC (Bld) 8.6 % Normal 1.7-12.0 [facility] Comment on above: Performed By: #### C BC ####[facility] Jbtqgruclg459[address] [place], [place] [address]Dr. Airam Tripathi NEUT # 3.9 103/ul Normal 1.4-6.5 [facility] Comment on above: Performed By: #### C BC ####[facility] Agqhvrrmkt0545[address] [place], [place] [address]Dr. Airam Tripathi Neutrophils/100 WBC (Bld) 69.8 % Normal 43.0-75.0 [facility] Comment on above: Performed By: #### C BC ####[facility] Unftbxkoje9[address] [place] [address]Dr. Airam Tripathi Platelet mean volume (Bld) [Entitic vol] 9.6 fL Normal 9.5-13.5 [facility] Comment on above: Performed By: #### C BC ####[facility] Hlwcofpffn[address] [place] [address]Dr. Airam Tripathi PLT 228 103/ul Normal 150-450 [facility] Comment on above: Performed By: #### C BC ####[facility] Ozuzsarccm34[address] [place] [address]Dr. Airam Tripathi RBC 3.29 106/ul Critically low 4.20-5.40 [facility] Comment on above: Performed By: #### C BC ####[facility] Cobqfyfrtn5[address] [place] [address]Dr. Airam Tripathi WBC 5.6 103/ul Normal 4.0-11.0 [facility] Comment on above: Performed By: #### C BC ####[facility] Wwxzowqdzk74[address] [place] [address]Dr. Airam Tripathi PROF 14(COMP METB)on 022 Albumin [Mass/Vol] 3.1 g/dL Critically low 3.4-5.0 [facility] Comment on above: Performed By: #### C MP ####[facility] Erwuyaeolx[address] [place] [address]Dr. Airam Tripathi Albumin/Globulin [Mass ratio] 1.0 {ratio} Normal [facility] Comment on above: Performed By: #### C MP ####[facility] Fddvmwwghe85[address] [place] [address]Dr. Airam Tripathi ALP [Catalytic activity/Vol] 131 U/L Critically high 46-116 [facility] Comment on above: Performed By: #### C MP ####[facility] Vdneacuhmt25[address] [place] [address]Dr. Airam Tripathi ALT [Catalytic activity/Vol] 19 U/L Normal 14-59 [facility] Comment on above: Performed By: #### C MP ####[facility] Cgeodeghce[address] [place] [address]Dr. Airam Tripathi Anion gap [Moles/Vol] 12.9 mmol/L Normal [facility] Comment on above: Performed By: #### C MP ####[facility] Nphhzlxghv0073 [place] [address]Dr. Airam Tripathi AST [Catalytic activity/Vol] 21 U/L Normal 15-37 [facility] Comment on above: Performed By: #### C MP ####[facility] Mwmhgkrogo8398[address] [place], [place] [address]Dr. Airam Tripathi Bilirubin [Mass/Vol] 0.2 mg/dL Normal 0.2-1.0 [facility] Comment on above: Performed By: #### C MP ####[facility] Nnsjyknjbk9[address] [place], [place] [address]Dr. Airam Tripathi Calcium [Mass/Vol] 8.4 mg/dL Critically low 8.5-10.1 [facility] Comment on above: Performed By: #### C MP ####[facility] Arnzlmapua7799[address] [place], [place] [address]Dr. Airam Tripathi Chloride [Moles/Vol] 103 mmol/L Normal 98-107 [facility] Comment on above: Performed By: #### C MP ####[facility] Ucgbcmxyqv7726[address] [place], [place] [address]Dr. Selenaneil Deuce CO2 [Moles/Vol] 23.7 mmol/L Normal 21.0-32.0 [facility] Comment on above: Performed By: #### C MP ####[facility] Vxlnkqwxxn196[address] [place], [place] [address]Dr. Selenaneil Tripathi Creatinine [Mass/Vol] 1.37 mg/dL Critically high 0.55-1.02 [facility] Comment on above: Performed By: #### C MP ####[facility] Lxduvrloja6160[address] [place], [place] [address]Dr. Airam Tripathi EGFR-AF [place] 48 mL/min/1.73m2 Critically low >=60 [facility] Comment on above: Performed By: #### C MP ####[facility] Rapnynccle[address] [place] [id number]. Airam Tripathi EGFR-NON AF [place]IZ[place] 39 mL/min/1.73m2 Critically low >=60 [facility] Comment on above: Performed By: #### C MP ####[facility] Iqlimavjlh2937 [place] [address]Dr. Airam Tripathi Globulin (S) [Mass/Vol] 3.1 g/dL Normal [facility] Comment on above: Performed By: #### C MP ####[facility] Fultfspgfx47[address] [place] [address]Dr. Airam Tripathi Glucose [Mass/Vol] 88 mg/dL Normal 74-106 [facility] Comment on above: Performed By: #### C MP ####[facility] Iyqypyfgef1091 [place] [address]Dr. Airam Tripathi Potassium [Moles/Vol] 4.6 mmol/L Normal 3.5-5.1 [facility] Comment on above: Performed By: #### C MP ####[facility] Cdnvuwkfbi9736[address] [place], [place] [address]Dr. Airam Tripathi Protein [Mass/Vol] 6.2 g/dL Critically low 6.4-8.2 [facility] Comment on above: Performed By: #### C MP ####[facility] Muvrjhdsfx3895[address] [place], [place] [address]Dr. Airam Tripathi Sodium [Moles/Vol] 135 mmol/L Critically low 136-145 [facility] Comment on above: Performed By: #### C MP ####[facility] Tynvvlpnts2234[address] [place], [place] [address]Dr. Airam Tripathi Urea nitrogen [Mass/Vol] 34.0 mg/dL Critically high 7.0-18.0 [facility] Comment on above: Performed By: #### C MP ####[facility] Jjkdeajwmo735234 [address] [place], [place] [address]Dr. Airam Tripathi Urea nitrogen/Creatinine [Mass ratio] 24.8 mg/mg Normal [facility] Comment on above: Performed By: #### C MP ####[facility] Gpcimajrwr[address] [place] [address]Dr. Airam Tripathi OSMOLALITYon 01-21-2022 Osmolality [Osmolality] 276 mosm/kg Normal 275-295 [facility] Comment on above: Performed By: #### O SMO ####[facility] Qoyzqwnhvl[address] [place] [address]Dr. Selenaneil Deuce MRI CSPINE WO CONon 01-21-20 22 MRI CSPINE WO CON Normal [facility] CBC AUTO DIFFon 01-19-2022 BASO # 0.0 103/ul Normal 0.0-0.1 [facility] Comment on above: Performed By: #### C BC ####[facility] Cubphbqhcv094[address] [place], [place] [address]Dr. Airam Tripathi Basophils/100 WBC (Bld) 0.2 % Normal 0.2-2.0 [facility] Comment on above: Performed By: #### C BC ####[facility] Ywhbvujfcd0625[address] [place], [place] [address]Dr. Airam Tripathi EO # 0.2 103/ul Normal 0.0-0.7 [facility] Comment on above: Performed By: #### C BC ####[facility] Utwuozinck6429[address] [place], [place] [address]Dr. Airam Tripathi Eosinophils/100 WBC (Bld) 2.1 % Normal 0.9-7.0 [facility] Comment on above: Performed By: #### C BC ####[facility] Tfvmygofsd6330[address] [place], [place] [address]Dr. Airam Tripathi Erythrocyte distribution width (RBC) [Ratio] 12.7 % Normal 11.0-15.0 [facility] Comment on above: Performed By: #### C BC ####[facility] Uyjgkarrei4501[address] [place], [place] [address]Dr. Airam Tripathi Hematocrit (Bld) [Volume fraction] 32.2 % Critically low 36.0-48.0 [facility] Comment on above: Performed By: #### C BC ####[facility] Pcnmfzhnuw22[address] [place], [place] [address]DrKianna Tripathi Hemoglobin (Bld) [Mass/Vol] 10.4 g/dL Critically low 12.0-16.0 [facility] Comment on above: Performed By: #### C BC ####[facility] Mkqhemcgfd0142 [place] [address]DrKianna Waltersneil Tripathi IG # 0.03 10e3/ul Normal 0.00-0.03 [facility] Comment on above: Performed By: #### C BC ####[facility] Urlisxswgb6170 [place] [address]Dr. Airam Tripathi IG % 0.3 % Normal 0.0-0.5 [facility] Comment on above: Performed By: #### C BC ####[facility] Gpeunvvzjf3997 [place] [address]DrKianna Tripathi LYMPH # 1.4 103/ul Normal 1.2-3.8 [facility] Comment on above: Performed By: #### C BC ####[facility] Dwxtxxmhix2359 [place] [address]Dr. Airam Tripathi Lymphocytes/100 WBC (Bld) 16.0 % Critically low 20.5-60.0 [facility] Comment on above: Performed By: #### C BC ####[facility] Vlgemvyrae1571 [place] [address]DrKianna Selenaneil Tripathi MANUAL DIFF REQ NO Normal [facility] Comment on above: Performed By: #### C BC ####[facility] Maoeouxmlc2775 [place] [address]DrKianna Airam Deuce MCH (RBC) [Entitic mass] 30.0 pg Normal 26.7-34.0 [facility] Comment on above: Performed By: #### C BC ####[facility] Ryxanibucd0625 [place] [address]DrKianna Tripathi MCHC (RBC) [Mass/Vol] 32.3 g/dL Normal 29.9-35.2 [facility] Comment on above: Performed By: #### C BC ####[facility] Iynlhgsemh0501 [place] [address]DrKianna Tripathi MCV (RBC) [Entitic vol] 92.8 fL Normal 81.0-99.0 [facility] Comment on above: Performed By: #### C BC ####[facility] Akxtlpyrcr15[address] [place] [address]DrKianna Waltersneil Tripathi MONO # 0.4 103/ul Normal 0.3-0.8 [facility] Comment on above: Performed By: #### C BC ####[facility] Hgzngqbmcs4536[address] [place], [place] [address]DrKianna Tripathi Monocytes/100 WBC (Bld) 4.9 % Normal 1.7-12.0 [facility] Comment on above: Performed By: #### C BC ####[facility] Sjjakzoyrf3825[address] [place], [place] [address]DrKianna Waltersneil Deuce NEUT # 6.6 103/ul Critically high 1.4-6.5 [facility] Comment on above: Performed By: #### C BC ####[facility] Drfprojvld175734 [address] [place], [place] [address]Dr. Airam Tripathi Neutrophils/100 WBC (Bld) 76.5 % Critically high 43.0-75.0 [facility] Comment on above: Performed By: #### C BC ####[facility] Lrmrfgkumz9217[address] [place], [place] [address]Dr. Airam Tripathi Platelet mean volume (Bld) [Entitic vol] 9.8 fL Normal 9.5-13.5 [facility] Comment on above: Performed By: #### C BC ####[facility] Zgqmotwpse755234 [address] [place], [place] [address]Dr. iAram Tripathi PLT 262 103/ul Normal 150-450 [facility] Comment on above: Performed By: #### C BC ####[facility] Zlhjuudeoe9528[address] [place], [place] [address]DrKianna Tripathi RBC 3.47 106/ul Critically low 4.20-5.40 [facility] Comment on above: Performed By: #### C BC ####[facility] Lqtmwtkeyb4009[address] [place], [place] [address]DrKianna Tripathi WBC 8.7 103/ul Normal 4.0-11.0 [facility] Comment on above: Performed By: #### C BC ####[facility] Myjmznmodu314134 [address] [place], [place] [address]DrKianna Tripathi PROF 14(COMP METB)on 022 Albumin [Mass/Vol] 3.3 g/dL Critically low 3.4-5.0 [facility] Comment on above: Performed By: #### C MP ####[facility] Hcilplhzts4614[address] [place], [place] [address]Dr. Airam Tripathi Albumin/Globulin [Mass ratio] 1.1 {ratio} Normal [facility] Comment on above: Performed By: #### C MP ####[facility] Gdcughkdbv9865[address] [place], [place] [address]Dr. Airam Tripathi ALP [Catalytic activity/Vol] 114 U/L Normal 46-116 [facility] Comment on above: Performed By: #### C MP ####[facility] Gtevxftpvi9200[address] [place], [place] [address]Dr. Airam Tripathi ALT [Catalytic activity/Vol] 20 U/L Normal 14-59 [facility] Comment on above: Performed By: #### C MP ####[facility] Byhydbqwnh3379[address] [place], [place] [address]Dr. Airam Tripathi Anion gap [Moles/Vol] 14.7 mmol/L Normal [facility] Comment on above: Performed By: #### C MP ####[facility] Jcvqnipqei0918[address] [place], [place] [address]Dr. Airam Tripathi AST [Catalytic activity/Vol] 22 U/L Normal 15-37 [facility] Comment on above: Performed By: #### C MP ####[facility] Kwlpnsfuiu1217[address] [place], [place] [address]Dr. Airam Tripathi Bilirubin [Mass/Vol] 0.3 mg/dL Normal 0.2-1.0 [facility] Comment on above: Performed By: #### C MP ####[facility] Kimyythsqx769834 [address] [place], [place] [address]Dr. Airam Tripathi Calcium [Mass/Vol] 8.8 mg/dL Normal 8.5-10.1 [facility] Comment on above: Performed By: #### C MP ####[facility] Klkyjtxczi2928[address] [place], [place] [address]Dr. Airam Tripathi Chloride [Moles/Vol] 97 mmol/L Critically low 98-107 [facility] Comment on above: Performed By: #### C MP ####[facility] Xrcqtzeyft3324[address] [place], [place] [address]Dr. Airam Tripathi CO2 [Moles/Vol] 24.5 mmol/L Normal 21.0-32.0 [facility] Comment on above: Performed By: #### C MP ####[facility] Klotovzxmd3565[address] [place], [place] [address]Dr. Airam Tripathi Creatinine [Mass/Vol] 1.28 mg/dL Critically high 0.55-1.02 [facility] Comment on above: Performed By: #### C MP ####[facility] Kjwoawcseu[address] [place], [place] [address]Dr. Airam Tripathi EGFR-AF [place]IZ[place] 52 mL/min/1.73m2 Critically low >=60 [facility] Comment on above: Performed By: #### C MP ####[facility] Mkvlmjruuj8[address] [place], [place] [address]Dr. Airam Tripathi EGFR-NON AF CITIZEN [place] 43 mL/min/1.73m2 Critically low >=60 [facility] Comment on above: Performed By: #### C MP ####[facility] [address]rsofhlgki[address] [place], [place] [address]Dr. Airam Tripathi Globulin (S) [Mass/Vol] 3.1 g/dL Normal [facility] Comment on above: Performed By: #### C MP ####[facility] Mdrweeuxyl033[address] [place], [place] [address]Dr. Airam Tripathi Glucose [Mass/Vol] 87 mg/dL Normal 74-106 [facility] Comment on above: Performed By: #### C MP ####[facility] Rovjhdpiaf9[address]234 [address] [place], [place] [address]Dr. Airam Tripathi Potassium [Moles/Vol] 4.2 mmol/L Normal 3.5-5.1 [facility] Comment on above: Performed By: #### C MP ####[facility] Boccrjrruf69[address] [place], [place] [address]Dr. Airam Deuce Protein [Mass/Vol] 6.4 g/dL Normal 6.4-8.2 [facility] Comment on above: Performed By: #### C MP ####[facility] Krvtggnuir443734 [address] [place], [place] [address]Dr. Airam Tripathi Sodium [Moles/Vol] 132 mmol/L Critically low 136-145 [facility] Comment on above: Performed By: #### C MP ####[facility] Poqldfhpto395834 [address] [place], [place] [address]Dr. Airam Tripathi Urea nitrogen [Mass/Vol] 36.0 mg/dL Critically high 7.0-18.0 [facility] Comment on above: Performed By: #### C MP ####[facility] Qbpaxcqjrt423934 [address] [place], [place] [address]Dr. Airam Tripathi Urea nitrogen/Creatinine [Mass ratio] 28.1 mg/mg Normal [facility] Comment on above: Performed By: #### C MP ####[facility] Siupzqnrto902134 [address] [place], [place] [address]Dr. Airam Deuce XR DEXA BONE DENSITYon 01-19 XR DEXA BONE DENSITY Normal [facility] OSMOLALITYon 01-13-2022 Osmolality [Osmolality] 277 mosm/kg Normal 275-295 [facility] Comment on above: Performed By: #### O SMO ####[facility] Wfoqeqejgs995934 [address] [place], [place] [address]Dr. Selenaneil Deuce CBC AUTO DIFFon 01-11-2022 BASO # 0.0 103/ul Normal 0.0-0.1 [facility] Comment on above: Performed By: #### C BC ####[facility] Hrrlkhvdfp668[address] [place], [place] [address]Dr. Airam Tripathi Basophils/100 WBC (Bld) 0.5 % Normal 0.2-2.0 [facility] Comment on above: Performed By: #### C BC ####[facility] Qy[address]emhqj4378 [place] [address]Dr. Airam Tripathi EO # 0.2 103/ul Normal 0.0-0.7 [facility] Comment on above: Performed By: #### C BC ####[facility] Mebhxkzrbp15[address] [place], [place] [address]Dr. Airam Tripathi Eosinophils/100 WBC (Bld) 3.1 % Normal 0.9-7.0 [facility] Comment on above: Performed By: #### C BC ####[facility] Pyvojoncal958934 [address] [place], [place] [address]Dr. Airam Tripathi Erythrocyte distribution width (RBC) [Ratio] 12.5 % Normal 11.0-15.0 [facility] Comment on above: Performed By: #### C BC ####[facility] Hgnuabztex521134 [address] [place], [place] [address]Dr. Airam Tripathi Hematocrit (Bld) [Volume fraction] 34.4 % Critically low 36.0-48.0 [facility] Comment on above: Performed By: #### C BC ####[facility] Sxxtwabbkg651134 [address] [place], [place] [address]Dr. Airam Tripathi Hemoglobin (Bld) [Mass/Vol] 11.0 g/dL Critically low 12.0-16.0 [facility] Comment on above: Performed By: #### C BC ####[facility] Cdoyynkfxm431334 [address] [place], [place] [address]Dr. Airam Tripathi IG # 0.03 10e3/ul Normal 0.00-0.03 [facility] Comment on above: Performed By: #### C BC ####[facility] Cuefjhbplo190534 [address] [place], [place] [address]Dr. Airam Tripathi IG % 0.5 % Normal 0.0-0.5 [facility] Comment on above: Performed By: #### C BC ####[facility] Dvvgtggmic313034 [address] [place], [place] [address]Dr. Selenaneil Tripathi LYMPH # 1.6 103/ul Normal 1.2-3.8 [facility] Comment on above: Performed By: #### C BC ####[facility] Vdppbytxkz8844 [place] [address]Dr. Selenaneil Tripathi Lymphocytes/100 WBC (Bld) 28.0 % Normal 20.5-60.0 [facility] Comment on above: Performed By: #### C BC ####[facility] Lnbdqlekuv7927 [place] [address]Dr. Airam Tripathi MANUAL DIFF REQ NO Normal [facility] Comment on above: Performed By: #### C BC ####[facility] Hjpknxkpxu7121 [place] [phone]. Airam Tripathi MCH (RBC) [Entitic mass] 30.1 pg Normal 26.7-34.0 [facility] Comment on above: Performed By: #### C BC ####[facility] Vzkmqediih260234 [address] [place], [place] [address]Dr. Airam Tripathi MCHC (RBC) [Mass/Vol] 32.0 g/dL Normal 29.9-35.2 [facility] Comment on above: Performed By: #### C BC ####[facility] Vflqffsglc645634 [address] [place], [place] [address]Dr. Selenaneil Tripathi MCV (RBC) [Entitic vol] 94.0 fL Normal 81.0-99.0 [facility] Comment on above: Performed By: #### C BC ####[facility] Boytnntxyu965634 [address] [place], [place] [address]Dr. Airam Tripathi MONO # 0.4 103/ul Normal 0.3-0.8 [facility] Comment on above: Performed By: #### C BC ####[facility] Jtxsgfnrzk150934 [address] [place], [place] [address]Dr. Airam Tripathi Monocytes/100 WBC (Bld) 7.5 % Normal 1.7-12.0 [facility] Comment on above: Performed By: #### C BC ####[facility] Toabyhexse070534 [address] [place], [place] [address]Dr. Airam Tripathi NEUT # 3.5 103/ul Normal 1.4-6.5 [facility] Comment on above: Performed By: #### C BC ####[facility] Uuptofwliv5949 [place] [address]Dr. Airam Tripathi Neutrophils/100 WBC (Bld) 60.4 % Normal 43.0-75.0 [facility] Comment on above: Performed By: #### C BC ####[facility] Wbjbopwzfm8717 [place] [address]Dr. Airam Tripathi Platelet mean volume (Bld) [Entitic vol] 10.0 fL Normal 9.5-13.5 [facility] Comment on above: Performed By: #### C BC ####[facility] Rwqhdfpdgg5448 [place] [address]Dr. Airam Tripathi PLT 300 103/ul Normal 150-450 [facility] Comment on above: Performed By: #### C BC ####[facility] Ttroidikag0931 [place] [address]Dr. Airam Tripathi RBC 3.66 106/ul Critically low 4.20-5.40 [facility] Comment on above: Performed By: #### C BC ####[facility] Yndsnmewpq910434 [address] [place], [place] [address]Dr. Airam Tripathi WBC 5.7 103/ul Normal 4.0-11.0 [facility] Comment on above: Performed By: #### C BC ####[facility] Lavyuhazlj57[address] [place] [address]Dr. Airam Tripathi PROF 14(COMP METB)on 022 Albumin [Mass/Vol] 3.3 g/dL Critically low 3.4-5.0 [facility] Comment on above: Performed By: #### C MP ####[facility] Wtupyikrkg3609[address] [place], [place] [address]Dr. Airam Tripathi Albumin/Globulin [Mass ratio] 1.0 {ratio} Normal [facility] Comment on above: Performed By: #### C MP ####[facility] Brfdqxtmkt[address] [place] [address]Dr. Airam Tripathi ALP [Catalytic activity/Vol] 138 U/L Critically high 46-116 [facility] Comment on above: Performed By: #### C MP ####[facility] Dblklkptuk9167 [place] [phone]. Airam Tripathi ALT [Catalytic activity/Vol] 25 U/L Normal 14-59 [facility] Comment on above: Performed By: #### C MP ####[facility] Jgwhcnfpij0064 [place] [address]Dr. Airam Tripathi Anion gap [Moles/Vol] 14.0 mmol/L Normal [facility] Comment on above: Performed By: #### C MP ####[facility] Olidyoluqc9745 [place] [address]Dr. Airam Tripathi AST [Catalytic activity/Vol] 19 U/L Normal 15-37 [facility] Comment on above: Performed By: #### C MP ####[facility] Aftfkhplgq278734 [address] [place], [place] [address]Dr. Airam Tripathi Bilirubin [Mass/Vol] 0.3 mg/dL Normal 0.2-1.0 [facility] Comment on above: Performed By: #### C MP ####[facility] Bdlzhzsnav8545[address] [place], [place] [address]Dr. Airam Tripathi Calcium [Mass/Vol] 8.7 mg/dL Normal 8.5-10.1 [facility] Comment on above: Performed By: #### C MP ####[facility] Yndlwxdagz1720[address] [place], [place] [address]Dr. Airam Tripathi Chloride [Moles/Vol] 99 mmol/L Normal 98-107 [facility] Comment on above: Performed By: #### C MP ####[facility] Ukbixnrbxu[address] [place], [place] [address]Dr. Airam Tripathi CO2 [Moles/Vol] 25.4 mmol/L Normal 21.0-32.0 [facility] Comment on above: Performed By: #### C MP ####[facility] Ygfjtkgsng[address] [place], [place] [address]Dr. Airam Tripathi Creatinine [Mass/Vol] 1.22 mg/dL Critically high 0.55-1.02 [facility] Comment on above: Performed By: #### C MP ####[facility] Byrppsrdhh3206 [place] [phone]. Airam Tripathi EGFR-AF [place]IZ[place] 55 mL/min/1.73m2 Critically low >=60 [facility] Comment on above: Performed By: #### C MP ####[facility] Bhzhfclezn2649 [place] [address]Dr. Airam Tripathi EGFR-NON AF CITIZEN [place] 45 mL/min/1.73m2 Critically low >=60 [facility] Comment on above: Performed By: #### C MP ####[facility] Fwrghprete2776 [place] [phone]. Airam Tripathi Globulin (S) [Mass/Vol] 3.2 g/dL Normal [facility] Comment on above: Performed By: #### C MP ####[facility] Acfllcjtyo2188 [place] [address]Dr. Airam Tripathi Glucose [Mass/Vol] 111 mg/dL Critically high 74-106 [facility] Comment on above: Performed By: #### C MP ####[facility] Uyperarcfw0875 [place] [address]Dr. Airam Tripathi Potassium [Moles/Vol] 4.4 mmol/L Normal 3.5-5.1 [facility] Comment on above: Performed By: #### C MP ####[facility] Ukaupiajow5513 [place] [address]Dr. Airam Deuce Protein [Mass/Vol] 6.5 g/dL Normal 6.4-8.2 [facility] Comment on above: Performed By: #### C MP ####[facility] Fgikvevpet3081 [place] [address]Dr. Airam Tripathi Sodium [Moles/Vol] 134 mmol/L Critically low 136-145 [facility] Comment on above: Performed By: #### C MP ####[facility] Xzsbegqnum6630 [place] [phone]. Airam Tripathi Urea nitrogen [Mass/Vol] 27.0 mg/dL Critically high 7.0-18.0 [facility] Comment on above: Performed By: #### C MP ####[facility] [address] [place], [place] [address]Bi. Airam Tripathi Urea nitrogen/Creatinine [Mass ratio] 22.1 mg/mg Normal [facility] Comment on above: Performed By: #### C MP ####[facility] V[address]ax[address] [place], [place] [address]Lv. Airam Tripathi CT CERVICAL SPINE WITHOUT CO NTRASTon 01-10-2022 CT CERVICAL SPINE WITHOUT CONTRAST [facility] Department of Radiology [address] [place] [id number] Patient Name: MABEL MOSER : 1960 Sex: F Age: Race: White Pt. Location: 29 Patient Status: D Ordered Date: 08/17/2021 10:00:00 AM Completed Date: 01/10/2022 10:24 AM Requesting Provider: ROBERT JOHNSTON Attending Provider: ROBERT JOHNSTON Report Copy To: ANGLE SANTANA Signs & Symptoms: M54.12 Radiculopathy, cervical region I10 History: [place] seeing Dr. Johnston after Comments: Exam: CT [...] achievable. Electronically signed: Ayleen Ny. Transcribed by: [email or web address], User Resident: Electronically Signed by: AYLEEN [place] @ 01/12/2022 12:32 PM Normal [facility] OSMOLALITYon 01-07-2022 Osmolality [Osmolality] 286 mosm/kg Normal 275-295 [facility] Comment on above: Performed By: #### O SMO ####[facility] Vfivgyclfy6632 [place] [address]DrKianna Tripathi CBC AUTO DIFFon 01-06-2022 BASO # 0.0 103/ul Normal 0.0-0.1 [facility] Comment on above: Performed By: #### C BC ####[facility] Nhmrtupypu1945 [place] [address]DrKianna Tripathi Basophils/100 WBC (Bld) 0.3 % Normal 0.2-2.0 [facility] Comment on above: Performed By: #### C BC ####[facility] Tauthatrfd4577 [place] [address]DrKianna Tripathi EO # 0.2 103/ul Normal 0.0-0.7 [facility] Comment on above: Performed By: #### C BC ####[facility] Eamtlbgjnm6256 [place] [address]Dr. Airam Tripathi Eosinophils/100 WBC (Bld) 4.1 % Normal 0.9-7.0 [facility] Comment on above: Performed By: #### C BC ####[facility] Sualcqzjtl[address] [place], [place] [address]Dr. Airam Tripathi Erythrocyte distribution width (RBC) [Ratio] 12.9 % Normal 11.0-15.0 [facility] Comment on above: Performed By: #### C BC ####[facility] Ufshmgscdb4786[address] [place], [place] [address]DrKianna Airam Tripathi Hematocrit (Bld) [Volume fraction] 34.2 % Critically low 36.0-48.0 [facility] Comment on above: Performed By: #### C BC ####[facility] Enxcoalnje217734 [address] [place], [place] [address]Dr. Airam Tripathi Hemoglobin (Bld) [Mass/Vol] 10.6 g/dL Critically low 12.0-16.0 [facility] Comment on above: Performed By: #### C BC ####[facility] Hwreebmjqg2550[address] [place], [place] [address]Dr. Airam Tripathi IG # 0.03 10e3/ul Normal 0.00-0.03 [facility] Comment on above: Performed By: #### C BC ####[facility] Rkvtgwidgs750034 [address] [place], [place] [address]Dr. Airam Tripathi IG % 0.5 % Normal 0.0-0.5 [facility] Comment on above: Performed By: #### C BC ####[facility] Yqlblpinac391334 [address] [place], [place] [address]DrKianna Airam Tripathi LYMPH # 1.1 103/ul Critically low 1.2-3.8 [facility] Comment on above: Performed By: #### C BC ####[facility] Clxumbarqe479134 [address] [place], [place] [address]Dr. Airam Tripathi Lymphocytes/100 WBC (Bld) 18.2 % Critically low 20.5-60.0 [facility] Comment on above: Performed By: #### C BC ####[facility] Fugtsonxsn0736 [place] [address]Dr. Airam Tripathi MANUAL DIFF REQ NO Normal [facility] Comment on above: Performed By: #### C BC ####[facility] Kcatwgmlbi3009 [place] [address]Dr. Airam Tripathi MCH (RBC) [Entitic mass] 29.6 pg Normal 26.7-34.0 [facility] Comment on above: Performed By: #### C BC ####[facility] Xchcigjhai596[address] [place], [place] [address]Dr. Airam Tripathi MCHC (RBC) [Mass/Vol] 31.0 g/dL Normal 29.9-35.2 [facility] Comment on above: Performed By: #### C BC ####[facility] Aslqggbees265734 [address] [place], [place] [address]Dr. Airam Tripathi MCV (RBC) [Entitic vol] 95.5 fL Normal 81.0-99.0 [facility] Comment on above: Performed By: #### C BC ####[facility] Zhnvonifsl9366[address] [place], [place] [address]Dr. Airam Tripathi MONO # 0.5 103/ul Normal 0.3-0.8 [facility] Comment on above: Performed By: #### C BC ####[facility] Jddnafveve834[address] [place], [place] [address]Dr. Airam Tripathi Monocytes/100 WBC (Bld) 8.5 % Normal 1.7-12.0 [facility] Comment on above: Performed By: #### C BC ####[facility] Bjrotidqus191334 [address] [place], [place] [address]DrKianna Tripathi NEUT # 4.0 103/ul Normal 1.4-6.5 [facility] Comment on above: Performed By: #### C BC ####[facility] Sjwhhzitqo632[address] [place], [place] [address]Dr. Airam Tripathi Neutrophils/100 WBC (Bld) 68.4 % Normal 43.0-75.0 [facility] Comment on above: Performed By: #### C BC ####[facility] Mldvyarqfz2235 [place] [address]Dr. Airam Tripathi Platelet mean volume (Bld) [Entitic vol] 10.1 fL Normal 9.5-13.5 [facility] Comment on above: Performed By: #### C BC ####[facility] Anbrmlagwz7222 [place] [address]Dr. Airam Tripathi PLT 304 103/ul Normal 150-450 [facility] Comment on above: Performed By: #### C BC ####[facility] Quetvoowoh9867[address] [place], [place] [address]Dr. Airam Tripathi RBC 3.58 106/ul Critically low 4.20-5.40 [facility] Comment on above: Performed By: #### C BC ####[facility] Flfqfgwgwk449334 [address] [place], [place] [address]Dr. Airam Tripathi WBC 5.9 103/ul Normal 4.0-11.0 [facility] Comment on above: Performed By: #### C BC ####[facility] Dkwxmnenbz7469[address] [place], [place] [address]Dr. Airam Tripathi MG MAMM RT DIAG FUon 022 MG MAMM RT DIAG FU Normal [facility] PROF 14(COMP METB)on 022 Albumin [Mass/Vol] 3.1 g/dL Critically low 3.4-5.0 [facility] Comment on above: Performed By: #### C MP ####[facility] Ktodhhtrpo89[address] [place], [place] [address]Dr. Airam Tripathi Albumin/Globulin [Mass ratio] 1.0 {ratio} Normal [facility] Comment on above: Performed By: #### C MP ####[facility] Cxpcbaqdpx385[address] [place], [place] [address]Dr. Airam Tripathi ALP [Catalytic activity/Vol] 143 U/L Critically high 46-116 [facility] Comment on above: Performed By: #### C MP ####[facility] Okzwucwpmq3326 [place] [phone]. Airam Tripathi ALT [Catalytic activity/Vol] 23 U/L Normal 14-59 [facility] Comment on above: Performed By: #### C MP ####[facility] Yohiwviela3151 [place] [address]Dr. Airam Tripathi Anion gap [Moles/Vol] 13.2 mmol/L Normal [facility] Comment on above: Performed By: #### C MP ####[facility] Eeinzzjdqp8873 [place] [address]Dr. Airam Tripathi AST [Catalytic activity/Vol] 20 U/L Normal 15-37 [facility] Comment on above: Performed By: #### C MP ####[facility] Royvsscjyr5860 [place] [address]Dr. Airam Tripathi Bilirubin [Mass/Vol] 0.3 mg/dL Normal 0.2-1.0 [facility] Comment on above: Performed By: #### C MP ####[facility] Cazojkvyqb1356 [place] [address]Dr. Airam Tripathi Calcium [Mass/Vol] 8.2 mg/dL Critically low 8.5-10.1 [facility] Comment on above: Performed By: #### C MP ####[facility] Qcmfpqhbro5894 [place] [address]Dr. Airam Tripathi Chloride [Moles/Vol] 100 mmol/L Normal 98-107 [facility] Comment on above: Performed By: #### C MP ####[facility] Nemgketeeu9881 [place] [address]Dr. Airam Tripathi CO2 [Moles/Vol] 26.0 mmol/L Normal 21.0-32.0 [facility] Comment on above: Performed By: #### C MP ####[facility] Umvupzxckc[address] [place], [place] [address]Dr. Airam Tripathi Creatinine [Mass/Vol] 1.52 mg/dL Critically high 0.55-1.02 [facility] Comment on above: Performed By: #### C MP ####[facility] Ouorzvpixa3702 [place] [phone]. Airam Tripathi EGFR-AF [place]IZ[place] 42 mL/min/1.73m2 Critically low >=60 [facility] Comment on above: Performed By: #### C MP ####[facility] Dgrzmcthsd7992 [place] [address]Dr. Airam Tripathi EGFR-NON AF CITIZEN [place] 35 mL/min/1.73m2 Critically low >=60 [facility] Comment on above: Performed By: #### C MP ####[facility] Xlochgwlkz9625 [place] [address]Dr. Airam Tripathi Globulin (S) [Mass/Vol] 3.2 g/dL Normal [facility] Comment on above: Performed By: #### C MP ####[facility] Cyohqavcyo7445 [place] [address]Dr. Airam Tripathi Glucose [Mass/Vol] 84 mg/dL Normal 74-106 [facility] Comment on above: Performed By: #### C MP ####[facility] Sreqkyrqye1031 [place] [address]Dr. Airam Tripathi Potassium [Moles/Vol] 4.2 mmol/L Normal 3.5-5.1 [facility] Comment on above: Performed By: #### C MP ####[facility] Citvituiqh3965 [place] [address]Dr. Ariam Tripathi Protein [Mass/Vol] 6.3 g/dL Critically low 6.4-8.2 [facility] Comment on above: Performed By: #### C MP ####[facility] Nktmkpfhfy9552 [place] [address]Dr. Airam Tripathi Sodium [Moles/Vol] 135 mmol/L Critically low 136-145 [facility] Comment on above: Performed By: #### C MP ####[facility] Ocqnvunqrw6878 [place] [address]Dr. Airam Tripathi Urea nitrogen [Mass/Vol] 36.0 mg/dL Critically high 7.0-18.0 [facility] Comment on above: Performed By: #### C MP ####[facility] Gnepkaqcgt9044 [place] [address]Dr. Airam Tripathi Urea nitrogen/Creatinine [Mass ratio] 23.7 mg/mg Normal [facility] Comment on above: Performed By: #### C MP ####[facility] Nssvhqrany0321 [place] [address]Dr. Airam Tripathi US BREAST RIGHT LIMITEDon US BREAST RIGHT LIMITED Normal [facility] OSMOLALITYon 12-31-2021 Osmolality [Osmolality] 280 mosm/kg Normal 275-295 [facility] Comment on above: Performed By: #### O SMO ####[facility] Vzdqywprfq[address] [place], [place] [address]Dr. Airam Tripathi CBC AUTO DIFFon 12-30-2021 BASO # 0.0 103/ul Normal 0.0-0.1 [facility] Comment on above: Performed By: #### C BC ####[facility] Cagfcqxici3027[address] [place], [place] [address]Dr. Airam Tripathi Basophils/100 WBC (Bld) 0.5 % Normal 0.2-2.0 [facility] Comment on above: Performed By: #### C BC ####[facility] Mqumbwlfop1288[address] [place], [place] [address]Dr. Airam Tripathi EO # 0.3 103/ul Normal 0.0-0.7 [facility] Comment on above: Performed By: #### C BC ####[facility] Qegnpimrpl8417[address] [place], [place] [address]Dr. Airam Tripathi Eosinophils/100 WBC (Bld) 3.5 % Normal 0.9-7.0 [facility] Comment on above: Performed By: #### C BC ####[facility] Pwjyyioppg5210[address] [place], [place] [address]Dr. Airam Tripathi Erythrocyte distribution width (RBC) [Ratio] 13.0 % Normal 11.0-15.0 [facility] Comment on above: Performed By: #### C BC ####[facility] Cehealyptl[address] [place], [place] [address]Dr. Airam Tripathi Hematocrit (Bld) [Volume fraction] 34.2 % Critically low 36.0-48.0 [facility] Comment on above: Performed By: #### C BC ####[facility] [address] [place] [address]DrKianna Airam Tripathi Hemoglobin (Bld) [Mass/Vol] 10.4 g/dL Critically low 12.0-16.0 [facility] Comment on above: Performed By: #### C BC ####[facility] Ighgkdqwof[address] [place], [place] [address]DrKianna Tripathi IG # 0.04 10e3/ul Critically high 0.00-0.03 [facility] Comment on above: Performed By: #### C BC ####[facility] Wglteagsye9733[address] [place], [place] [address]DrKianna Tripathi IG % 0.5 % Normal 0.0-0.5 [facility] Comment on above: Performed By: #### C BC ####[facility] Ilwhipdnpq8[address] [place], [place] [address]DrKianna Tripathi LYMPH # 2.1 103/ul Normal 1.2-3.8 [facility] Comment on above: Performed By: #### C BC ####[facility] Ygeglipmcz7557[address] [place], [place] [address]DrKianna Selenaneil Tripathi Lymphocytes/100 WBC (Bld) 23.5 % Normal 20.5-60.0 [facility] Comment on above: Performed By: #### C BC ####[facility] Dumozkvhan[address] [place], [place] [address]DrKianna Tripathi MANUAL DIFF REQ NO Normal [facility] Comment on above: Performed By: #### C BC ####[facility] Hhjuorvvwk7060[address] [place], [place] [address]DrKianna Tripathi MCH (RBC) [Entitic mass] 29.4 pg Normal 26.7-34.0 [facility] Comment on above: Performed By: #### C BC ####[facility] Chrmaigers6633[address] [place], [place] [address]DrKianna Tripathi MCHC (RBC) [Mass/Vol] 30.4 g/dL Normal 29.9-35.2 [facility] Comment on above: Performed By: #### C BC ####[facility] [address]qjexp[address]jj[address] [place] [address]DrKianna Tripathi MCV (RBC) [Entitic vol] 96.6 fL Normal 81.0-99.0 [facility] Comment on above: Performed By: #### C BC ####[facility] Srohsfmqym2768[address] [place], [place] [address]DrKianna Tripathi MONO # 0.6 103/ul Normal 0.3-0.8 [facility] Comment on above: Performed By: #### C BC ####[facility] Ayitdjkpam601034 [address] [place], [place] [address]DrKianna Tripathi Monocytes/100 WBC (Bld) 6.4 % Normal 1.7-12.0 [facility] Comment on above: Performed By: #### C BC ####[facility] Thjsyfjrbe0[address]34 [address] [place], [place] [address]DrKianna Tripathi NEUT # 5.8 103/ul Normal 1.4-6.5 [facility] Comment on above: Performed By: #### C BC ####[facility] Scbcribxjb5870[address] [place], [place] [address]DrKianna Tripathi Neutrophils/100 WBC (Bld) 65.6 % Normal 43.0-75.0 [facility] Comment on above: Performed By: #### C BC ####[facility] Swpghxbvvg79[address] [place], [place] [address]DrKianna Tripathi Platelet mean volume (Bld) [Entitic vol] 9.2 fL Critically low 9.5-13.5 [facility] Comment on above: Performed By: #### C BC ####[facility] Hpipwicjpt657734 [address] [place], [place] [address]DrKianna Tripathi PLT 338 103/ul Normal 150-450 [facility] Comment on above: Performed By: #### C BC ####[facility] Dstmqmsxty298034 [address] [place], [place] [address]DrKianna Tripathi RBC 3.54 106/ul Critically low 4.20-5.40 [facility] Comment on above: Performed By: #### C BC ####[facility] Odcvttufsx[address] [place] [address]Dr. Airam Tripathi WBC 8.9 103/ul Normal 4.0-11.0 [facility] Comment on above: Performed By: #### C BC ####[facility] Qtvspqjojd4[address] [place] [address]Dr. Airam Tripathi MG MAMM SCREEN 3D GUMARO CADon 12-30-2021 MG MAMM SCREEN 3D GUMARO CAD Normal [facility] PROF 14(COMP METB)on 022 Albumin [Mass/Vol] 3.6 g/dL Normal 3.4-5.0 [facility] Comment on above: Performed By: #### C MP ####[facility] Oefkqygtrg437234 [address] [place], [place] [address]Dr. Airam Tripathi Albumin/Globulin [Mass ratio] 1.1 {ratio} Normal [facility] Comment on above: Performed By: #### C MP ####[facility] Njcvpdlxhl958534 [address] [place], [place] [address]Dr. Airam Tripathi ALP [Catalytic activity/Vol] 117 U/L Critically high 46-116 [facility] Comment on above: Performed By: #### C MP ####[facility] Wyetejpccm059034 [address] [place], [place] [address]Dr. Airam Tripathi ALT [Catalytic activity/Vol] 26 U/L Normal 14-59 [facility] Comment on above: Performed By: #### C MP ####[facility] Qfceszgyfg368134 [address] [place], [place] [address]Dr. Airam Tripathi Anion gap [Moles/Vol] 11.2 mmol/L Normal [facility] Comment on above: Performed By: #### C MP ####[facility] Xkujdulovh722034 [address] [place], [place] [address]Dr. Airam Tripathi AST [Catalytic activity/Vol] 29 U/L Normal 15-37 [facility] Comment on above: Performed By: #### C MP ####[facility] V[address]ztr[address]xuf[address] [place] [address]Dr. Ariam Tripathi Bilirubin [Mass/Vol] 0.3 mg/dL Normal 0.2-1.0 [facility] Comment on above: Performed By: #### C MP ####[facility] Rcmjoettlm079634 [address] [place], [place] [address]Dr. Airam Tripathi Calcium [Mass/Vol] 9.1 mg/dL Normal 8.5-10.1 [facility] Comment on above: Performed By: #### C MP ####[facility] Wajrfqvedx896134 [address] [place], [place] [address]Dr. Airam Tripathi Chloride [Moles/Vol] 101 mmol/L Normal 98-107 [facility] Comment on above: Performed By: #### C MP ####[facility] Ppjnpcqicg358634 [address] [place], [place] [address]Dr. Airam Tripathi CO2 [Moles/Vol] 26.8 mmol/L Normal 21.0-32.0 [facility] Comment on above: Performed By: #### C MP ####[facility] Zbyccbeyll635034 [address] [place], [place] [address]Dr. Airam Tripathi Creatinine [Mass/Vol] 1.56 mg/dL Critically high 0.55-1.02 [facility] Comment on above: Performed By: #### C MP ####[facility] Mtfcygjhqh019934 [address] [place], [place] [address]Dr. Airam Tripathi EGFR-AF [place]IZ[place] 41 mL/min/1.73m2 Critically low >=60 [facility] Comment on above: Performed By: #### C MP ####[facility] Fbppmyuvnw523534 [address] [place], [place] [address]Dr. Airam Deuce EGFR-NON AF CITIZEN [place] 34 mL/min/1.73m2 Critically low >=60 [facility] Comment on above: Performed By: #### C MP ####[facility] Thooadbxbn777134 [address] [place], [place] [address]Dr. Airam Deuce Globulin (S) [Mass/Vol] 3.3 g/dL Normal [facility] Comment on above: Performed By: #### C MP ####[facility] Qpxaczypnd[address] [place] [address]Dr. Airam Tripathi Glucose [Mass/Vol] 84 mg/dL Normal 74-106 [facility] Comment on above: Performed By: #### C MP ####[facility] Zdoxmebsne263034 [address] [place], [place] [address]Dr. Airam Tripathi Potassium [Moles/Vol] 5.0 mmol/L Normal 3.5-5.1 [facility] Comment on above: Performed By: #### C MP ####[facility] Bjvssclnpt679034 [address] [place], [place] [address]Dr. Airam Tripathi Protein [Mass/Vol] 6.9 g/dL Normal 6.4-8.2 [facility] Comment on above: Performed By: #### C MP ####[facility] Djqxoiypgo494834 [address] [place], [place] [address]Dr. Airam Tripathi Sodium [Moles/Vol] 134 mmol/L Critically low 136-145 [facility] Comment on above: Performed By: #### C MP ####[facility] Xoabdyabxa796634 [address] [place], [place] [address]Dr. Airam Tripathi Urea nitrogen [Mass/Vol] 28.0 mg/dL Critically high 7.0-18.0 [facility] Comment on above: Performed By: #### C MP ####[facility] Ctlwkirbhw724[address] [place], [place] [address]Dr. Airam Tripathi Urea nitrogen/Creatinine [Mass ratio] 17.9 mg/mg Normal [facility] Comment on above: Performed By: #### C MP ####[facility] Ggywuxbohz9[address]34 [address] [place], [place] [address]Dr. Airam Tripathi OSMOLALITYon 12-24-2021 Osmolality [Osmolality] 287 mosm/kg Normal 275-295 [facility] Comment on above: Performed By: #### O SMO ####[facility] Jojvussmzr387[address] [place], [place] [address]Dr. Airam Tripathi CBC AUTO DIFFon 12-22-2021 BASO # 0.0 103/ul Normal 0.0-0.1 [facility] Comment on above: Performed By: #### C BC ####[facility] [address] [place] [address]Dr. Airam Tripathi Basophils/100 WBC (Bld) 0.5 % Normal 0.2-2.0 [facility] Comment on above: Performed By: #### C BC ####[facility] Prxxvpfgor[address] [place] [address]Dr. Airam Tripathi EO # 0.4 103/ul Normal 0.0-0.7 [facility] Comment on above: Performed By: #### C BC ####[facility] Javsmodnay[address] [place], [place] [address]Dr. Airam Tripathi Eosinophils/100 WBC (Bld) 6.4 % Normal 0.9-7.0 [facility] Comment on above: Performed By: #### C BC ####[facility] Qhcvavxeca445934 [address] [place], [place] [address]Dr. Airam Tripathi Erythrocyte distribution width (RBC) [Ratio] 13.2 % Normal 11.0-15.0 [facility] Comment on above: Performed By: #### C BC ####[facility] Wwjloysvjv85[address] [place], [place] [address]Dr. Airam Tripathi Hematocrit (Bld) [Volume fraction] 32.2 % Critically low 36.0-48.0 [facility] Comment on above: Performed By: #### C BC ####[facility] [address] [place] [address]Dr. Airam Tripathi Hemoglobin (Bld) [Mass/Vol] 10.1 g/dL Critically low 12.0-16.0 [facility] Comment on above: Performed By: #### C BC ####[facility] Junruvgsyu1098[address] [place], [place] [address]Dr. Airam Tripathi IG # 0.03 10e3/ul Normal 0.00-0.03 [facility] Comment on above: Performed By: #### C BC ####[facility] Qhbhlz[address]cs[address] [place], [place] [id number]. Airam Tripathi IG % 0.5 % Normal 0.0-0.5 [facility] Comment on above: Performed By: #### C BC ####[facility] [address]vte[address] [place] [address]Dr. Airam Tripathi LYMPH # 1.3 103/ul Normal 1.2-3.8 [facility] Comment on above: Performed By: #### C BC ####[facility] Leghytcxmk25[address] [place] [address]Dr. Airam Tripathi Lymphocytes/100 WBC (Bld) 20.5 % Normal 20.5-60.0 [facility] Comment on above: Performed By: #### C BC ####[facility] Szxwiziiyt[address] [place] [address]Dr. Airam Tripathi MANUAL DIFF REQ NO Normal [facility] Comment on above: Performed By: #### C BC ####[facility] Tf[address]pwsdny8[address] [place] [address]Dr. Airam Deuce MCH (RBC) [Entitic mass] 30.1 pg Normal 26.7-34.0 [facility] Comment on above: Performed By: #### C BC ####[facility] Vnmkidlilu[address] [place] [address]Dr. Airam Tripathi MCHC (RBC) [Mass/Vol] 31.4 g/dL Normal 29.9-35.2 [facility] Comment on above: Performed By: #### C BC ####[facility] [address]rnuqxuqiw[address] [place] [address]Dr. Airam Deuce MCV (RBC) [Entitic vol] 95.8 fL Normal 81.0-99.0 [facility] Comment on above: Performed By: #### C BC ####[facility] [address]uh[address]qlhuqn[address] [place] [address]Dr. Airam Tripathi MONO # 0.5 103/ul Normal 0.3-0.8 [facility] Comment on above: Performed By: #### C BC ####[facility] Fthefntmlo4213 [place] [address]Dr. Airam Deuce Monocytes/100 WBC (Bld) 7.4 % Normal 1.7-12.0 [facility] Comment on above: Performed By: #### C BC ####[facility] G[address]xcqzgcsi[address] [place] [address]Dr. Airam Tripathi NEUT # 3.9 103/ul Normal 1.4-6.5 [facility] Comment on above: Performed By: #### C BC ####[facility] Lmisdcbkbo[address] [place] [address]Dr. Airam Tripathi Neutrophils/100 WBC (Bld) 64.7 % Normal 43.0-75.0 [facility] Comment on above: Performed By: #### C BC ####[facility] Mhpeadwgzh0324 [place] [address]Dr. Airam Tripathi Platelet mean volume (Bld) [Entitic vol] 9.2 fL Critically low 9.5-13.5 [facility] Comment on above: Performed By: #### C BC ####[facility] [address]wcpzmqz75[address] [place] [address]Dr. Airam Tripathi PLT 309 103/ul Normal 150-450 [facility] Comment on above: Performed By: #### C BC ####[facility] [address]fz[address] [place] [address]Dr. Airam Tripathi RBC 3.36 106/ul Critically low 4.20-5.40 [facility] Comment on above: Performed By: #### C BC ####[facility] Qahmosoxje94[address] [place] [address]Dr. Airam Tripathi WBC 6.1 103/ul Normal 4.0-11.0 [facility] Comment on above: Performed By: #### C BC ####[facility] Okehpsworf58[address] [place] [address]Dr. Selenaneil Tripathi PROF 14(COMP METB)on 022 Albumin [Mass/Vol] 3.2 g/dL Critically low 3.4-5.0 [facility] Comment on above: Performed By: #### C MP ####[facility] Ixqgdidbdx4030 [place] [address]Dr. Airam Deuce Albumin/Globulin [Mass ratio] 1.1 {ratio} Normal [facility] Comment on above: Performed By: #### C MP ####[facility] Xwdcjmedhz4293 [place] [address]Dr. Airam Tripathi ALP [Catalytic activity/Vol] 123 U/L Critically high 46-116 [facility] Comment on above: Performed By: #### C MP ####[facility] Wlqqxuxpag4525 [place] [address]Dr. Airam Tripathi ALT [Catalytic activity/Vol] 26 U/L Normal 14-59 [facility] Comment on above: Performed By: #### C MP ####[facility] Wvwufpbemm7205 [place] [address]Dr. Airam Tripathi Anion gap [Moles/Vol] 14.5 mmol/L Normal [facility] Comment on above: Performed By: #### C MP ####[facility] Sgzxqwdcjo7243 [place] [address]Dr. Airam Tripathi AST [Catalytic activity/Vol] 23 U/L Normal 15-37 [facility] Comment on above: Performed By: #### C MP ####[facility] Ycxlfkdfrk4554 [place] [address]Dr. Airam Tripathi Bilirubin [Mass/Vol] 0.3 mg/dL Normal 0.2-1.0 [facility] Comment on above: Performed By: #### C MP ####[facility] Zspuplabkp3338 [place] [address]Dr. Airam Tripathi Calcium [Mass/Vol] 8.2 mg/dL Critically low 8.5-10.1 [facility] Comment on above: Performed By: #### C MP ####[facility] Todvfnznfq5434 [place] [address]Dr. Airam Tripathi Chloride [Moles/Vol] 102 mmol/L Normal 98-107 [facility] Comment on above: Performed By: #### C MP ####[facility] Kiyjfltauk3930 [place] [address]Dr. Airam Tripathi CO2 [Moles/Vol] 23.2 mmol/L Normal 21.0-32.0 [facility] Comment on above: Performed By: #### C MP ####[facility] Dnntbtamww3092 [place] [address]Dr. Airam Tripathi Creatinine [Mass/Vol] 1.98 mg/dL Critically high 0.55-1.02 [facility] Comment on above: Performed By: #### C MP ####[facility] [address] [place], [place] [address]Fc. Airam Tripathi EGFR-AF [place]IZ[place] 31 mL/min/1.73m2 Critically low >=60 [facility] Comment on above: Performed By: #### C MP ####[facility] Abcflidbgk7727 [place] [address]Dr. Airam Tripathi EGFR-NON AF [place]IZ[place] 26 mL/min/1.73m2 Critically low >=60 [facility] Comment on above: Performed By: #### C MP ####[facility] Infxhrbdxm4526 [place] [address]Dr. Airam Tripathi Globulin (S) [Mass/Vol] 3.0 g/dL Normal [facility] Comment on above: Performed By: #### C MP ####[facility] Hezacistml4093 [place] [address]Dr. Airam Tripathi Glucose [Mass/Vol] 131 mg/dL Critically high 74-106 [facility] Comment on above: Performed By: #### C MP ####[facility] Aggiamofwp1474 [place] [address]Dr. Airam Tripathi Potassium [Moles/Vol] 4.7 mmol/L Normal 3.5-5.1 [facility] Comment on above: Performed By: #### C MP ####[facility] Mlrfnppuyq5666 [place] [address]Dr. Airam Tripathi Protein [Mass/Vol] 6.2 g/dL Critically low 6.4-8.2 [facility] Comment on above: Performed By: #### C MP ####[facility] Hytxmjipgd2438 [place] [address]Dr. Airam Tripathi Sodium [Moles/Vol] 135 mmol/L Critically low 136-145 [facility] Comment on above: Performed By: #### C MP ####[facility] Srlinbtmcw9255 [place] [address]Dr. Airam Tripathi Urea nitrogen [Mass/Vol] 37.0 mg/dL Critically high 7.0-18.0 [facility] Comment on above: Performed By: #### C MP ####[facility] Tdqoqdxrnn038[address] [place], [place] [address]Dr. Airam Tripathi Urea nitrogen/Creatinine [Mass ratio] 18.7 mg/mg Normal [facility] Comment on above: Performed By: #### C MP ####[facility] Lsoseyojma74[address] [place], [place] [address]Dr. Airam Tripathi OSMOLALITYon 12-18-2021 Osmolality [Osmolality] 271 mosm/kg Critically low 275-295 [facility] Comment on above: Performed By: #### O SMO ####[facility] Bgxwwdcrso4436[address] [place], [place] [address]Dr. Airam Tripathi CBC AUTO DIFFon 12-16-2021 BASO # 0.0 103/ul Normal 0.0-0.1 [facility] Comment on above: Performed By: #### C BC ####[facility] Ozjbidpjlb574934 [address] [place], [place] [address]Dr. Airam Tripathi Basophils/100 WBC (Bld) 0.6 % Normal 0.2-2.0 [facility] Comment on above: Performed By: #### C BC ####[facility] Xilynbfhvj8025[address] [place], [place] [address]Dr. Airam Tripathi EO # 0.1 103/ul Normal 0.0-0.7 [facility] Comment on above: Performed By: #### C BC ####[facility] Mdctsekfin536534 [address] [place], [place] [address]Dr. Airam Tripathi Eosinophils/100 WBC (Bld) 2.1 % Normal 0.9-7.0 [facility] Comment on above: Performed By: #### C BC ####[facility] Qflhirpxdy707434 [address] [place], [place] [address]Dr. Airam Tripathi Erythrocyte distribution width (RBC) [Ratio] 13.1 % Normal 11.0-15.0 [facility] Comment on above: Performed By: #### C BC ####[facility] Ofezokawjd[address] [place] [address]Dr. Airam Tripathi Hematocrit (Bld) [Volume fraction] 33.8 % Critically low 36.0-48.0 [facility] Comment on above: Performed By: #### C BC ####[facility] Thelbimjdw4214 [place] [address]Dr. Airam Tripathi Hemoglobin (Bld) [Mass/Vol] 10.7 g/dL Critically low 12.0-16.0 [facility] Comment on above: Performed By: #### C BC ####[facility] Zutewiciwo1114[address] [place], [place] [address]Dr. Airam Tripathi IG # 0.02 10e3/ul Normal 0.00-0.03 [facility] Comment on above: Performed By: #### C BC ####[facility] Vkjnqzznxx158134 [address] [place], [place] [address]Dr. Selenaneil Tripathi IG % 0.3 % Normal 0.0-0.5 [facility] Comment on above: Performed By: #### C BC ####[facility] Jskjbihhod67[address] [place], [place] [address]DrKianna Airam Deuce LYMPH # 1.2 103/ul Normal 1.2-3.8 [facility] Comment on above: Performed By: #### C BC ####[facility] Xurcfwohkw5079[address] [place], [place] [address]DrKianna Selenaneil Tripathi Lymphocytes/100 WBC (Bld) 17.3 % Critically low 20.5-60.0 [facility] Comment on above: Performed By: #### C BC ####[facility] Dlwdjeopzt586[address] [place], [place] [address]DrKianna Selenaneil Tripathi MANUAL DIFF REQ NO Normal [facility] Comment on above: Performed By: #### C BC ####[facility] Yfsaudxzdg7635[address] [place], [place] [address]DrKianna Selenaneil Tripathi MCH (RBC) [Entitic mass] 30.2 pg Normal 26.7-34.0 [facility] Comment on above: Performed By: #### C BC ####[facility] Fgsjoewynx5050 [place] [phone]. Airam Tripathi MCHC (RBC) [Mass/Vol] 31.7 g/dL Normal 29.9-35.2 [facility] Comment on above: Performed By: #### C BC ####[facility] Bqwxmmkdop9689 [place] [address]Dr. Airam Tripathi MCV (RBC) [Entitic vol] 95.5 fL Normal 81.0-99.0 [facility] Comment on above: Performed By: #### C BC ####[facility] Fnfdrzynyc025[address] [place], [place] [address]Dr. Airam Tripathi MONO # 0.5 103/ul Normal 0.3-0.8 [facility] Comment on above: Performed By: #### C BC ####[facility] Jmjbyirabt5408[address] [place], [place] [address]Dr. Airam Tripathi Monocytes/100 WBC (Bld) 6.8 % Normal 1.7-12.0 [facility] Comment on above: Performed By: #### C BC ####[facility] Jkbibtnttl469[address] [place], [place] [address]Dr. Airam Tripathi NEUT # 4.9 103/ul Normal 1.4-6.5 [facility] Comment on above: Performed By: #### C BC ####[facility] Yfpujoofhr6876[address] [place], [place] [address]Dr. Airam Tripathi Neutrophils/100 WBC (Bld) 72.9 % Normal 43.0-75.0 [facility] Comment on above: Performed By: #### C BC ####[facility] Uqaontlnjj5456[address] [place], [place] [address]Dr. Airam Tripathi Platelet mean volume (Bld) [Entitic vol] 9.0 fL Critically low 9.5-13.5 [facility] Comment on above: Performed By: #### C BC ####[facility] Gvjtpoelfn2[address] [place], [place] [address]Dr. Airam Tripathi PLT 297 103/ul Normal 150-450 [facility] Comment on above: Performed By: #### C BC ####[facility] Fvhjizruwt7124 [place] [address]Dr. Selenaneil Deuce RBC 3.54 106/ul Critically low 4.20-5.40 [facility] Comment on above: Performed By: #### C BC ####[facility] Rdfyssbaqf7046 [place] [phone]. Airam Tripathi WBC 6.8 103/ul Normal 4.0-11.0 [facility] Comment on above: Performed By: #### C BC ####[facility] Opwxbdtmmw0410 [place] [address]Dr. Airam Tripathi PROF 14(COMP METB)on 022 Albumin [Mass/Vol] 3.2 g/dL Critically low 3.4-5.0 [facility] Comment on above: Performed By: #### C MP ####[facility] Aeqzyvtkab[address] [place], [place] [address]Dr. Airam Tripathi Albumin/Globulin [Mass ratio] 1.0 {ratio} Normal [facility] Comment on above: Performed By: #### C MP ####[facility] Cinvbahofl[address] [place], [place] [address]Dr. Airam Tripathi ALP [Catalytic activity/Vol] 109 U/L Normal 46-116 [facility] Comment on above: Performed By: #### C MP ####[facility] M[address]shjuqc[address] [place], [place] [address]Dr. Airam Tripathi ALT [Catalytic activity/Vol] 23 U/L Normal 14-59 [facility] Comment on above: Performed By: #### C MP ####[facility] Whozhsemrb[address] [place], [place] [address]Dr. Airam Tripathi Anion gap [Moles/Vol] 11.6 mmol/L Normal [facility] Comment on above: Performed By: #### C MP ####[facility] [address]vhvsw[address] [place] [address]Dr. Airam Tripathi AST [Catalytic activity/Vol] 24 U/L Normal 15-37 [facility] Comment on above: Performed By: #### C MP ####[facility] [address]iehcfrnpr4[address] [place] [phone]. Airam Tripathi Bilirubin [Mass/Vol] 0.2 mg/dL Normal 0.2-1.0 [facility] Comment on above: Performed By: #### C MP ####[facility] Htygvgizzt74[address] [place] [phone]. Airam Tripathi Calcium [Mass/Vol] 8.6 mg/dL Normal 8.5-10.1 [facility] Comment on above: Performed By: #### C MP ####[facility] Ibvhvavtjz9[address] [place] [phone]. Airam Tripathi Chloride [Moles/Vol] 100 mmol/L Normal 98-107 [facility] Comment on above: Performed By: #### C MP ####[facility] Ybfsnfukpa6[address] [place] [address]Dr. Airam Tripathi CO2 [Moles/Vol] 24.7 mmol/L Normal 21.0-32.0 [facility] Comment on above: Performed By: #### C MP ####[facility] Zuyqmldcyq8454 [place] [address]Dr. Airam Tripathi Creatinine [Mass/Vol] 1.11 mg/dL Critically high 0.55-1.02 [facility] Comment on above: Performed By: #### C MP ####[facility] [address]jbmmveppv35[address] [place] [phone]. Airam Tripathi EGFR-AF CITIZEN OF [place] >60 Normal >=60 [facility] Comment on above: Performed By: #### C MP ####[facility] Itlmoeismh27[address] [place] [phone]. Airam Tripathi EGFR-NON AF CITIZEN OF [place] 50 mL/min/1.73m2 Critically low >=60 [facility] Comment on above: Performed By: #### C MP ####[facility] Txaejntqaw[address] [place] [phone]. Airam Tripathi Globulin (S) [Mass/Vol] 3.1 g/dL Normal [facility] Comment on above: Performed By: #### C MP ####[facility] Ogpluhxntz[address] [place] [phone]. Airam Tripathi Glucose [Mass/Vol] 79 mg/dL Normal 74-106 [facility] Comment on above: Performed By: #### C MP ####[facility] Cl[address]lyaik[address] [place] [address]Dr. Airam Tripathi Potassium [Moles/Vol] 5.3 mmol/L Critically high 3.5-5.1 [facility] Comment on above: Performed By: #### C MP ####[facility] Wzujfszjzk[address] [place], [place] [address]Dr. Airam Tripathi Protein [Mass/Vol] 6.3 g/dL Critically low 6.4-8.2 [facility] Comment on above: Performed By: #### C MP ####[facility] Txmaftvdfx[address] [place], [place] [address]Dr. Airam Tripathi Sodium [Moles/Vol] 131 mmol/L Critically low 136-145 [facility] Comment on above: Performed By: #### C MP ####[facility] Pifkxwhtdr[address] [place], [place] [address]Dr. Airam Tripathi Urea nitrogen [Mass/Vol] 20.0 mg/dL Critically high 7.0-18.0 [facility] Comment on above: Performed By: #### C MP ####[facility] Rcgjnepavz[address] [place], [place] [address]Dr. Airam Tripathi Urea nitrogen/Creatinine [Mass ratio] 18.0 mg/mg Normal [facility] Comment on above: Performed By: #### C MP ####[facility] Ssrfhxgecf208[address] [place], [place] [address]Dr. Airam Tripathi OSMOLALITYon 12-09-2021 Osmolality [Osmolality] 279 mosm/kg Normal 275-295 [facility] Comment on above: Performed By: #### O SMO ####[facility] Jkmoszlvqv[address] [place], [place] [address]Dr. Airam Tripathi CBC AUTO DIFFon 12-07-2021 BASO # 0.0 103/ul Normal 0.0-0.1 [facility] Comment on above: Performed By: #### C BC ####[facility] Zuspvdmzhf[address] [place] [phone]. Airam Tripathi Basophils/100 WBC (Bld) 0.5 % Normal 0.2-2.0 [facility] Comment on above: Performed By: #### C BC ####[facility] [address] [place], [place] [id number]. Airam Tripathi EO # 0.4 103/ul Normal 0.0-0.7 [facility] Comment on above: Performed By: #### C BC ####[facility] Rrlkctdgjx118[address] [place], [place] [address]Dr. Airam Tripathi Eosinophils/100 WBC (Bld) 6.3 % Normal 0.9-7.0 [facility] Comment on above: Performed By: #### C BC ####[facility] Xnrjuuyngq[address] [place], [place] [address]Dr. Airam Tripathi Erythrocyte distribution width (RBC) [Ratio] 13.3 % Normal 11.0-15.0 [facility] Comment on above: Performed By: #### C BC ####[facility] Rvjqzwmjbb[address] [place], [place] [address]Dr. Airam Tripathi Hematocrit (Bld) [Volume fraction] 29.5 % Critically low 36.0-48.0 [facility] Comment on above: Performed By: #### C BC ####[facility] Blmxvmyfxb[address] [place], [place] [address]Dr. Airam Tripathi Hemoglobin (Bld) [Mass/Vol] 9.1 g/dL Critically low 12.0-16.0 [facility] Comment on above: Performed By: #### C BC ####[facility] Zrgeixchbq99[address] [place], [place] [address]Dr. Airam Deuce IG # 0.04 10e3/ul Critically high 0.00-0.03 [facility] Comment on above: Performed By: #### C BC ####[facility] Cjrjshohhc[address] [place], [place] [address]Dr. Selenaneil Tripathi IG % 0.7 % Critically high 0.0-0.5 [facility] Comment on above: Performed By: #### C BC ####[facility] Cjxhfcxmfu4340 [place] [phone]. Airam Tripathi LYMPH # 1.3 103/ul Normal 1.2-3.8 [facility] Comment on above: Performed By: #### C BC ####[facility] Ljcfleruql69[address] [place] [address]Dr. Airam Tripathi Lymphocytes/100 WBC (Bld) 20.9 % Normal 20.5-60.0 [facility] Comment on above: Performed By: #### C BC ####[facility] Pteubagkls[address] [place], [place] [address]Dr. Airam Tripathi MANUAL DIFF REQ NO Normal [facility] Comment on above: Performed By: #### C BC ####[facility] Phxjyfnmmd7[address] [place], [place] [address]Dr. Airam Tripathi MCH (RBC) [Entitic mass] 30.1 pg Normal 26.7-34.0 [facility] Comment on above: Performed By: #### C BC ####[facility] Qkoxjaiaqu44[address] [place], [place] [address]Dr. Airam Tripathi MCHC (RBC) [Mass/Vol] 30.8 g/dL Normal 29.9-35.2 [facility] Comment on above: Performed By: #### C BC ####[facility] Fdipdwnktc[address] [place], [place] [address]Dr. Airam Tripathi MCV (RBC) [Entitic vol] 97.7 fL Normal 81.0-99.0 [facility] Comment on above: Performed By: #### C BC ####[facility] Qmmqhxwbja9[address] [place], [place] [address]Dr. Airam Tripathi MONO # 0.4 103/ul Normal 0.3-0.8 [facility] Comment on above: Performed By: #### C BC ####[facility] Erphtdmdmh[address] [place], [place] [address]Dr. Airam Tripathi Monocytes/100 WBC (Bld) 6.6 % Normal 1.7-12.0 [facility] Comment on above: Performed By: #### C BC ####[facility] [address]imfevma3[address] [place] [phone]. Airam Tripathi NEUT # 4.0 103/ul Normal 1.4-6.5 [facility] Comment on above: Performed By: #### C BC ####[facility] Hspvpejoyr3735 [place] [phone]. Airam Tripathi Neutrophils/100 WBC (Bld) 65.0 % Normal 43.0-75.0 [facility] Comment on above: Performed By: #### C BC ####[facility] R[address]rtqfaqn07[address] [place] [address]Dr. Airam Tripathi Platelet mean volume (Bld) [Entitic vol] 9.4 fL Critically low 9.5-13.5 [facility] Comment on above: Performed By: #### C BC ####[facility] Xydajqesng45[address] [place] [address]Dr. Airam Tripathi PLT 224 103/ul Normal 150-450 [facility] Comment on above: Performed By: #### C BC ####[facility] Tjjuitcasc6638 [place] [address]Dr. Airam Tripathi RBC 3.02 106/ul Critically low 4.20-5.40 [facility] Comment on above: Performed By: #### C BC ####[facility] Lamwzsfanl55[address] [place] [address]Dr. Airam Tripathi WBC 6.1 103/ul Normal 4.0-11.0 [facility] Comment on above: Performed By: #### C BC ####[facility] Iohxjlttrz5004 [place] [phone] Tripathi PROF 14(COMP METB)on 022 Albumin [Mass/Vol] 2.8 g/dL Critically low 3.4-5.0 [facility] Comment on above: Performed By: #### C MP ####[facility] Pkcxragngv5862 [place] [address]DrKianna Tripathi Albumin/Globulin [Mass ratio] 1.1 {ratio} Normal [facility] Comment on above: Performed By: #### C MP ####[facility] Iyyofkalxi7574 [place] [phone]. Airam Tripathi ALP [Catalytic activity/Vol] 116 U/L Normal 46-116 [facility] Comment on above: Performed By: #### C MP ####[facility] Rnowfynozx2856 [place] [phone]. Airam Tripathi ALT [Catalytic activity/Vol] 23 U/L Normal 14-59 [facility] Comment on above: Performed By: #### C MP ####[facility] Qdridlsitz8335 [place] [address]Dr. Airam Tripathi Anion gap [Moles/Vol] 12.1 mmol/L Normal [facility] Comment on above: Performed By: #### C MP ####[facility] Wofqikraxs[address] [place], [place] [address]Dr. Airam Tripathi AST [Catalytic activity/Vol] 23 U/L Normal 15-37 [facility] Comment on above: Performed By: #### C MP ####[facility] Pbuqngviyc8[address] [place] [address]Dr. Airam Tripathi Bilirubin [Mass/Vol] 0.2 mg/dL Normal 0.2-1.0 [facility] Comment on above: Performed By: #### C MP ####[facility] Ridtwfukeg[address] [place], [place] [address]Dr. Airam Tripathi Calcium [Mass/Vol] 8.1 mg/dL Critically low 8.5-10.1 [facility] Comment on above: Performed By: #### C MP ####[facility] Cpiltqxium[address] [place], [place] [address]Dr. Airam Tripathi Chloride [Moles/Vol] 105 mmol/L Normal 98-107 [facility] Comment on above: Performed By: #### C MP ####[facility] Jkeomtbrge[address] [place], [place] [address]Dr. Airam Deuce CO2 [Moles/Vol] 22.1 mmol/L Normal 21.0-32.0 [facility] Comment on above: Performed By: #### C MP ####[facility] Tocsfjfchu[address] [place] [phone]. Airam Tripathi Creatinine [Mass/Vol] 1.06 mg/dL Critically high 0.55-1.02 [facility] Comment on above: Performed By: #### C MP ####[facility] Gvpctcaovn[address]139 [place] [address]Dr. Airam Tripathi EGFR-AF [place]IZ[place] >60 Normal >=60 [facility] Comment on above: Performed By: #### C MP ####[facility] Hkddavlcac4701 [place] [address]Dr. Airam Tripathi EGFR-NON AF CITIZEN OF [place] 53 mL/min/1.73m2 Critically low >=60 [facility] Comment on above: Performed By: #### C MP ####[facility] Sftenclgge[address] [place] [address]Dr. Airam Tripathi Globulin (S) [Mass/Vol] 2.6 g/dL Normal [facility] Comment on above: Performed By: #### C MP ####[facility] Eiiwwjprvt8932 [place] [address]Dr. Airam Tripathi Glucose [Mass/Vol] 109 mg/dL Critically high 74-106 [facility] Comment on above: Performed By: #### C MP ####[facility] Ywwmvqzfpr7694 [place] [address]Dr. Airam Tripathi Potassium [Moles/Vol] 4.2 mmol/L Normal 3.5-5.1 [facility] Comment on above: Performed By: #### C MP ####[facility] Elxqyrhucy3753 [place] [address]Dr. Airam Tripathi Protein [Mass/Vol] 5.4 g/dL Critically low 6.4-8.2 [facility] Comment on above: Performed By: #### C MP ####[facility] Dfwyveapuy7992 [place] [phone]. Airam Tripathi Sodium [Moles/Vol] 135 mmol/L Critically low 136-145 [facility] Comment on above: Performed By: #### C MP ####[facility] On[address] [place], [place] [address]Hy. Airam Tripathi Urea nitrogen [Mass/Vol] 15.0 mg/dL Normal 7.0-18.0 [facility] Comment on above: Performed By: #### C MP ####[facility] [address] [place], [place] [address]Eq. Airam Tripathi Urea nitrogen/Creatinine [Mass ratio] 14.2 mg/mg Normal [facility] Comment on above: Performed By: #### C MP ####[facility] [address] [place], [place] [address]Xt. Airam Tripathi Operative Reporton Operative Report MR#: [id number] S [facility] Pt. Name: Mabel Moser Room #: [...] subscapularis. 3. Right shoulder proximal biceps tenotomy. HYDRAULIC DREDGE OPERATOR: Alex Serra M.D. ANESTHESIA: General. INDICATIONS: The [...] Reza M.D. Date Trans: 08/19/2021 11:37 A/carter [id number] cc: Angle Santana M.D. [address] [place] [address] Normal [facility] POC GLUCOSE LABon 08-19-2021 Glucose [Mass/Vol] 77 mg/dL Normal 70-100 [facility] Comment on above: Performed By: #### [id number] #### [facility] [address] 04-05-2021 CNPN Telephone (HEMASA) ----- MABEL MOSER ([id number]) 1960 F Date Time Provider Department 04/05/21 YEVGENIY FORD During your visit today, we recorded the following information about you: Chana Gallegos [facility] 04/05/2021 7:57 AM Signed Records faxed to the cancer center at [facility]. Patient to follow with Dr. [...] Status:Closed by CHANA LEE on 04/05/21 Normal [facility] OBSOLETEon 01-11-2021 OBSOLETE Refill (HEMASA) ----- MABEL MOSER ([id number]) 1960 F Date Time Provider Department 01/11/21 [...] disease) stage 3, GFR 30-59 ml/min ([facility]) [N18.30] Order(s):cyanocobalamin 1,000 mcg/mLINJECT 1 ML [...] Status:Closed by YEVGENIY FORD on 01/12/21 Normal [facility] Vital Signs Date Time Vital Sign Value Performing Clinician Facility 07-03-2023 12:00-0500 Body temperature 97.9 [degF] MD Angle Santana Work Phone: [facility] 07-03-2023 12:00-0500 Diastolic blood pressure 71 mm[Hg] MD Angle Santana Work Phone: [facility] 07-03-2023 12:00-0500 Heart rate 68 /min MD Angle Santana Work Phone: [facility] 07-03-2023 12:00-0500 Respiratory rate 16 /min MD Angle Santana Work Phone: [facility] 07-03-2023 12:00-0500 SaO2% (BldA) [Mass fraction] 100 % MD Angle Santana Work Phone: [facility] 07-03-2023 12:00-0500 Systolic blood pressure 121 mm[Hg] MD Angle Santana Work Phone: [facility] 07-03-2023 04:49-0500 Body weight 85.8 kg MD Angle Santana Work Phone: [facility] 06-30-2023 14:44-0500 Body height 157.48 cm MD Angle Santana Work Phone: [facility] 04-04-2023 16:20-0400 Body height 158.75 cm Azariel Verdeecos Other [employer] [facility] [employer] Other 04-04-2023 16:20-0400 Body mass index (BMI) [Ratio] 31.46 kg/m2 Azariel Viedea Other [employer] Other 04-04-2023 16:20-0400 Body temperature 98 [degF] Azariel Verdeecos Other [employer] Other 04-04-2023 16:20-0400 Body weight 79.29 kg Azariel Verdeecos Other [employer] Other 04-04-2023 16:20-0400 Diastolic blood pressure 81 mm[Hg] Aziz Verdeecos Other [employer] Other 04-04-2023 16:20-0400 Respiratory rate 18 /min Aziz Verdeecos Other [employer] Other 04-04-2023 16:20-0400 SaO2% (BldA) [Mass fraction] 98 % Aziz Flatorahous Other [employer] [facility] [employer] Other 04-04-2023 16:20-0400 Systolic blood pressure 133 mm[Hg] Raeann Kirkpatrick Other [employer] Other 10-28-2022 22:23-0400 Body temperature 97.4 [degF] MD Angle Santana Work Phone: [facility] 10-28-2022 22:00-0400 Diastolic blood pressure 74 mm[Hg] MD Angle Santana Work Phone: [facility] 10-28-2022 22:00-0400 Heart rate 72 /min MD Angle Santana Work Phone: [facility] 10-28-2022 22:00-0400 Respiratory rate 20 /min MD Angle Santana Work Phone: [facility] 10-28-2022 22:00-0400 SaO2% (BldA) [Mass fraction] 97 % MD Angle Santana Work Phone: [facility] 10-28-2022 22:00-0400 Systolic blood pressure 169 mm[Hg] MD Angle Santana Work Phone: [facility] 10-28-2022 17:54-0400 Body height 157.48 cm MD Angle Santana Work Phone: [facility] 10-28-2022 17:54-0400 Body weight 83.7 kg MD Angle Santana Work Phone: [facility] 09-27-2022 12:00-0400 Body height 158.75 cm Raeann Mishrajohnnie Other [employer] [facility] [employer] Other 09-27-2022 12:00-0400 Body mass index (BMI) [Ratio] 31.78 kg/m2 Raeann Kirkpatrick Other [employer] Other 09-27-2022 12:00-0400 Body temperature 96.1 [degF] Azariel Mishras Other [employer] Other 09-27-2022 12:00-0400 Body weight 80.11 kg Raeann Mishras Other [employer] Other 09-27-2022 12:00-0400 Diastolic blood pressure 82 mm[Hg] Azariel Misrhas Other [employer] Other 09-27-2022 12:00-0400 Respiratory rate 18 /min Raeann Mishras Other [employer] Other 09-27-2022 12:00-0400 SaO2% (BldA) [Mass fraction] 99 % Raeann Mishras Other [employer] Other 09-27-2022 12:00-0400 Systolic blood pressure 140 mm[Hg] Raeann Mishras Other [employer] Other 04-12-2022 14:00-0400 Body height 158.75 cm Raeann Mishras Other [employer] Other 04-12-2022 14:00-0400 Body mass index (BMI) [Ratio] 30.13 kg/m2 Raeann Harrisonhous Other [employer] Other 04-12-2022 14:00-0400 Body temperature 97.6 [degF] Aziz Bakhous Other [employer] Other 04-12-2022 14:00-0400 Body weight 75.93 kg Azariel Harrisonhous Other [employer] Other 04-12-2022 14:00-0400 Diastolic blood pressure 95 mm[Hg] Raeann Kirkpatrick Other [employer] Other 04-12-2022 14:00-0400 Respiratory rate 18 /min Raeann Kirkpatrick Other [employer] Other 04-12-2022 14:00-0400 SaO2% (BldA) [Mass fraction] 98 % Raeann Kirkpatrick Other [employer] Other 04-12-2022 14:00-0400 Systolic blood pressure 175 mm[Hg] Raeann Kirkpatrick Other [employer] Other 06-16-2021 16:20-0500 Body height 158.75 cm Los Grissom Other [employer] Other 06-16-2021 16:20-0500 Body mass index (BMI) [Ratio] 30.88 kg/m2 Los Rascongerald Other [employer] Other 06-16-2021 16:20-0500 Body temperature 96.4 [degF] Los Rascongerald Other [employer] Other 06-16-2021 16:20-0500 Body weight 77.84 kg Los Rascongerald Other [employer] Other 06-16-2021 16:20-0500 Diastolic blood pressure 88 mm[Hg] Los Praveena Other [employer] Other 06-16-2021 16:20-0500 Respiratory rate 18 /min Los Praveena Other [employer] Other 06-16-2021 16:20-0500 SaO2% (BldA) [Mass fraction] 99 % Los Grissom Other [employer] Other 06-16-2021 16:20-0500 Systolic blood pressure 137 mm[Hg] Los Grissom Other [employer] Other Encounters Encounter Date Encounter Type Care Provider Facility Start: 10-13-2023 ambulatory ANGLE M [facility] Start: 09-30-2023 End: 10-01-2023 Evaluation and management of inpatient BALJINDER Ignacio HUGHES [facility] Start: 08-16-2023 End: 08-16-2023 ambulatory MACIE [facility] Start: 08-01-2023 Evaluation and management of inpatient [facility] Start: 08-01-2023 Evaluation [facility] management of inpatient [facility] Start: 07-31-2023 Evaluation and management of inpatient [facility] Start: 07-31-2023 Evaluation and management of inpatient [facility] Start: 07-31-2023 Evaluation and management of inpatient JUDAH QUIROZ [facility] Start: 07-28-2023 Evaluation and management of inpatient RACHEL NOEL [facility] Start: 07-28-2023 End: 08-03-2023 Evaluation and management of inpatient ANGLE SANTANA [facility] Start: 07-13-2023 ambulatory BENJIE Santos [facility] Start: 07-11-2023 End: 07-11-2023 ambulatory Raeann Kirkpatrick Other [employer] [facility] [employer] Other Start: 07-11-2023 Telephone encounter Raeann Kirkpatrick [facility] Start: 06-29-2023 End: 07-03-2023 Evaluation and management of inpatient Jimsrikanth Randhawa Facility:[facility] Start: 06-29-2023 End: 07-03-2023 Evaluation and management of inpatient MD Angle Santana Work Phone: [facility] Work Phone: Start: 04-04-2023 End: 04-04-2023 ambulatory Aziz Bakhous Other [employer] Other Start: 04-04-2023 Office outpatient visit 25 minutes Aziz Bakhous [facility] Start: 04-03-2023 End: 04-03-2023 ambulatory Aziz Bakhous Other [employer] Other Start: 04-03-2023 Telephone encounter Aziz Bakhous [facility] Start: 02-22-2023 End: [facility] 02-16-[facility]23 ambulatory DUNCAN DENNIS [facility] Start: 01-13-2023 End: [facility] 12-15-[facility]22 End: 12-16-2022 ambulatory [facility] Start: 12-12-2022 End: 12-12-2022 ambulatory Aziz Bakhous Other [employer] [facility] [employer] Other Start: 12-12-2022 Telephone encounter Aziz Bakhous [facility] Start: 12-08-2022 End: 12-08-2022 ambulatory Aziz Bakhous Other [employer] Other Start: 12-08-2022 Telephone encounter Aziz Bakhous [facility] Start: 11-30-2022 End: 11-30-2022 ambulatory [facility] Start: 11-22-2022 End: 11-22-[address] ANGLE SANTANA . Facility:[facility] Start: 11-22-2022 End: 11-22-2022 ambulatory SADIE PHOENIXMIPATHY . Facility:[facility] Start: 11-16-2022 End: 11-16-[address] ANGLE SANTANA . Facility:[facility] Start: 11-07-2022 End: 11-07-2022 ambulatory BENJIE MARCELOSUE [facility] Start: 11-04-2022 End: 11-05-2022 ambulatory SADIE PHOENIXMIPATHY . Facility:[facility] Start: 11-03-2022 End: 11-03-[address] ANGLE SANTANA . Facility:[facility] Start: 10-31-2022 ambulatory SANTOS ROUSSEAU . Facili ty:[facility] Start: 10-28-2022 End: 10-29-2022 Emergency department patient visit Favian Helm Facility:[facility] Start: 10-28-2022 End: 10-28-2022 Emergency department patient visit MD Angle Santana Work Phone: [facility] Work Phone: Start: 10-28-2022 End: 10-28-2022 ambulatory RHIANNON BERNARD [facility] Start: 10-27-2022 End: 10-28-2022 ambulatory SADIE PHOENIXMIPATHY [...] Start: 10-10-2022 End: 10-10-2022 ambulatory ZANDRA GONZALEZ [facility] Start: 10-05-2022 End: 10-07-[address] ANGLE SANTANA . Facility:[facility]1 Start: 10-05-2022 ambulatory FELECIA FORDMONICASrikanth . Facility: [facility]1 Start: 09-29-2022 End: 10-04-[address] ANGLE SANTANA . Facility:[facility]1 Start: 09-27-2022 End: 09-27-2022 ambulatory Raeann Kirkpatrick Other [employer] Other Start: 09-27-2022 Office outpatient visit 25 minutes Raeann Kirkpatrick [facility] Nephrology [place] Start: 09-21-2022 End: 09-22-[address] ANGLE SANTANA . Facility:[facility]1 Start: 09-20-2022 End: 09-21-2022 ambulatory SADIE PHOENIXMICONSTANTINO . Facility:[facility]1 Start: 09-19-2022 End: 09-20-[address] ANGLE SANTANA . Facility:[facility]1 Start: 09-19-2022 End: 09-20-2022 ambulatory RAEANN KIRKPATRICK Facility:[facility]1 Start: 08-24-2022 End: 09-12-[address] ANGLE SANTANA . Facility:[facility]1 Start: 08-23-2022 End: 08-23-2022 ambulatory Sue Leiva Other [employer] Other Start: 08-23-2022 Office outpatient ne w 30 minutes Sue Leiva [facility] Start: 08-16-2022 End: 08-17-[address] [...] Facility:H1 Start: 04-12-2022 End: 04-12-2022 [facility] [employer] Other Start: 04-12-2022 Office outpatient visit 25 minutes Deariel Kirkpatrick [facility] Nephrology [place] Start: 04-06-2022 ambulatory [...] Start: 01-10-2022 End: 01-11-2022 ambulatory Robert Johnston Facility:[facility] Start: 01-06-2022 End: 01-07-[address] ANGLE SANTANA . Facility:H1 Start: 12-30-2021 End: 01-19-[address] ANGLE SANTANA . Facility:[facility]1 Start: 12-23-2021 End: 12-24-2021 ambulatory NNAMDI DEJESUS . Facility:[facility]1 Start: 12-07-2021 End: 12-22-[address] ANGLE SANTANA . Facility: Start: 12-07-2021 End: 12-07-[address] ANGLE SANTANA . Facility: Start: 08-19-2021 End: 08-20-2021 ambulatory CARLOS Deepak VARNERHN Facility:[facility] Start: 06-16-2021 End: 06-16-2021 ambulatory [place] Other [facility] [employer] Other Start: 06-16-2021 Office outpatient visit 25 minutes [place] Gr[place]om [facility] Nephrology Start: 01-14-2019 End: 01-14-2019 Patient encounter procedure [facility] Start: 12-03-2018 End: 12-03-2018 Patient encounter procedure [facility] Procedures Date Procedure Procedure Detail Performing [...] Date Care Activity Detail Author Start: 07-03-2023 [facility] Start: 06-29-2023 Hospital admission [facility] Start: 06-29-2023 Referral to fuels engineer [facility] Blood chemistry [facility] Patient Education [facility] Work Phone: Patient referral [facility] Work Phone: Payers Date Payer Category Payer Medicare [id number] 2022 Self-pay [id number] 2017 Medicare [id number] 2017 Unknown [id number] 1962 Unknown [id number] 2.16.8 40.1.211305.3.579.2.173 1962 Unknown [id number] 2.16.8 40.1.055598.3.579.2.173 1962 Unknown [id number] 2.16.8 40.1.764839.3.579.2.647 1962 Unknown [id number] 2.16.8 40.1.741167.3.579.2.647 1962 Unknown [id number] 2.16.84 0.1.250025.3.579.2.593 1962 Unknown [id number] 2.16.84 0.1.769396.3.579.2.593 1962 Unknown [id number] 2.16.84 0.1.439116.3.579.2.593 1962 Unknown [id number] 2.16.84 0.1.528073.3.579.2.593 1962 Unknown [id number] 2.16.84 0.1.278150.3.579.2.593 1962 Unknown [id number] 2.16.84 0.1.351581.3.579.2.593 1962 Unknown [id number] 2.16.84 0.1.824035.3.579.2.593 1962 Unknown [id number] 2.16.84 0.1.925972.3.579.2.593 1962 Unknown [id number] 2.16.84 0.1.851524.3.579.2.593 1962 Unknown [id number] 2.16.84 0.1.309622.3.579.2.593 1962 Unknown [id number] 2.16.84 0.1.742748.3.579.2.593 1962 Unknown [id number] 2.16.84 0.1.107195.3.579.2.593 1962 Unknown [id number] 2.16.84 0.1.182993.3.579.2.593 1962 Unknown [id number] 2.16.84 0.1.571080.3.579.2.593 1962 Unknown [id number] 2.16.84 0.1.144906.3.579.2.593 1962 Unknown [id number] 2.16.84 0.1.579382.3.579.2.593 1962 Unknown [id number] 2.16.84 0.1.855890.3.579.2.593 1962 Unknown [id number] 2.16.84 0.1.470860.3.579.2.593 1962 Unknown [id number] 2.16.84 0.1.348309.3.579.2.593 1962 Unknown [id number] 2.16.84 0.1.252364.3.579.2.593 1962 Unknown [id number] 2.16.84 0.1.295811.3.579.2.593 1962 Unknown [id number] 2.16.84 0.1.361530.3.579.2.593 1962 Unknown [id number] 2.16.84 0.1.766877.3.579.2.593 1962 Unknown [id number] 2.16.84 0.1.942123.3.579.2.593 1962 Unknown [id number] 2.16.84 0.1.918945.3.579.2.593 1962 Unknown [id number] 2.16.84 0.1.238209.3.579.2.593 1962 Unknown [id number] 2.16.84 0.1.468007.3.579.2.593 1962 Unknown [id number] 2.16.84 0.1.812485.3.579.2.593 1962 Unknown [id number] 2.16.84 0.1.581082.3.579.2.593 1962 Unknown [id number] 2.16.84 0.1.662843.3.579.2.593 1962 Unknown [id number] 2.16.84 0.1.550642.3.579.2.593 1962 Unknown [id number] 2.16.84 0.1.550268.3.579.2.593 1962 Unknown [id number] 2.16.84 0.1.756158.3.579.2.593 1962 Unknown [id number] 2.16.84 0.1.636802.3.579.2.593 1962 Unknown [id number] 2.16.84 0.1.140552.3.579.2.593 1962 Unknown [id number] 2.16.84 0.1.524152.3.579.2.593 1962 Unknown [id number] 2.16.84 0.1.353293.3.579.2.593 1962 Unknown [id number] 2.16.84 0.1.719684.3.579.2.593 1962 Unknown [id number] 2.16.84 0.1.344087.3.579.2.593 1962 Unknown [id number] 2.16.84 0.1.550426.3.579.2.593 1962 Unknown [id number] 2.16.84 0.1.482716.3.579.2.593 1962 Unknown [id number] 2.16.84 0.1.172796.3.579.2.593 1962 Unknown [id number] 2.16.84 0.1.761086.3.579.2.593 1962 Unknown [id number] 2.16.84 0.1.430475.3.579.2.593 1962 Unknown [id number] 2.16.84 0.1.391803.3.579.2.593 1962 Unknown [id number] 2.16.84 0.1.349327.3.579.2.593 1962 Unknown [id number] 2.16. 840.1.522800.3.579.2.175 1962 Unknown [id number] 2.16.8 40.1.788867.3.579.2.1286 1959 Medicaid [id number] Unknown [id number] 2.1 6.840.1.366267.19 Unknown [place] BC/BS [id number] Unknown [id number] 2.16.8 40.1.090431.3.579.2.531 Unknown [id number] 2.16.8 40.1.471724.3.579.2.531 Social History Date Type Detail Facility Unknown if ever smoked [employer] Other Sex Assigned At Sex Assigned At Bir th [facility] [employer] Other Start: 10-28-2022 End: 06-30-2023 Tobacco smoking status NHIS Never smoked tobacco (finding) [facility] Start: 1960 Sex Assigned At Female F [facility] Goals Date Patient Goal Desired Activity /State Functional Status Date Assessment Result Facility 07-03-2023 Functional status Patient at Baseline [facility] Work Phone: Mental Status Date Assessment Result Facility 07-03-2023 Cognitive function Cognitive Sta tus Patient at Baseline [facility] Work Phone: Clinical Notes 06-16-2021 to 08-16-2023 Note Date & Type Note Facility 08-16-2023 Note [place] Electrophysiology Consult Note Reason for visit: HFU for acute CHF HPI: Mabel Moser is a 63 y.o. year old with past medical history of CHF, CKD IV, CAD, hypertension, GERD, hypothyroidism, CVA, seizure disorder, pulmonary hypertension, hx of DVT on eliquis. patient was admitted to [facility] for acute decompensated CHF 184# on scale at home, was 172# at [facility] but she feels well and appears compensated She is seeing lymph edema clinic twice a week, has follow up with fuels engineer next week She has taken her PRN bumex dose once since discharge because she felt as though she did not have a lot of urine output that day but has improved since She is doing much better following fluid restriction of about 5275-9958 mls / day [facility] discharge summary 08/03/23 Hospital course: Mabel Moser is an 63 y.o. female who came from home with Past medical history of CHF, CKD IV, CAD, hypertension, GERD, hypothyroidism, CVA, seizure disorder, pulmonary hypertension, hx of DVT on eliquis presents to [facility] as a direct admission from [facility] with fluid overload. Patient reports [...] Anxiety Arthritis Asthma CHF (congestive heart failure) ([facility]/HCC) Coronary artery disease Depression Gastroenteritis Heart valve disease Hypertension Kidney failure Lumbar spondylolysis Stroke ([facility]) PSH: Past Surgical History: Procedure Laterality [...] Year: No Utilities: Not At Risk (07/28/2023) [facility] Utilities Threatened with loss of utilities: [...] and with ev (more content not included)... [facility] 08-16-2023 Note Patient here for [facility] for CHF. Entresto was stopped and she [...] All other systems reviewed and are negative. [facility] 08-03-2023 Note ---- Attestation signed by Navi [...] stable. Patient is to follow-up with her fuels engineer Navi Weems MD, PhD ---- Nephrology [...] gastric bypass surgery who initially presented to [facility] with concerns for worsening lower extremity edema, after gaining 50 pounds within past week. Patient was evaluated by PCP who increased Bumex dose from 1 mg TID to 3 mg TID but patient had no improvement in symptoms. On presentation to [place], patient's creatinine was 4.55 (baseline 1.8-2), phosphorus 11.2, potassium 5.7, magnesium 1.8, hemoglobin 9.2 and BUN 122. Patient was initiated on Bumex drip but developed hypotension and was changed to IV pushes. Patient was subsequently transferred to [facility] Upon assessment at [facility], patient has downtrend in Cr to 3.64, [...] with meals desvenlafaxine, (more content not included)... [facility] 08-03-2023 Note Active with [facility] home care. Sent the AVS. [facility] 08-03-2023 Note Physical Therapy Physical Therapy Evaluation [...] Bilateral hearing loss Chronic obstructive pulmonary disease ([facility]) CKD (chronic kidney disease) stage 3, GFR 30-59 ml/min ([facility]) Closed fracture of trochanter of femur ([facility]) Clostridium difficile colitis Coronary arteriosclerosis Diffuse thyroid 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 thyrotoxicosis Fluid overload Dehydration Cortical age-related cataract of left eye COVID-19 Displacement of lumbar intervertebral disc without myelopathy Edema of lower extremity Edema Orthopnea Dyspnea Endogenous obesity Essential tremor Chronic diastolic heart failure, NYHA class 2 ([facility]) H/O gastric bypass Gouty arthropathy Gastroesophageal reflux disease Full thickness rotator cuff tear Fibromyalgia Low back pain Hip pain Hyperparathyroidism due to renal insufficiency ([facility]) Hypocalcemia Hypertensive disorder Hypoglycemia Hyponatremia Hypothyroidism Impingement syndrome of shoulder region Insomnia Anemia due to vitamin B12 deficiency Pulmonary hypertension ([facility]) Other fatigue Osteoarthritis of knee Morbid (severe) obesity due to excess calories ([facility]) Left atrial enlargement Lumbosacral neuritis Lumbosacral spondylosis without myelopathy Intractable migraine without status migrainosus Migraine Rheumatic tricuspid valve regurgitation Vitamin D deficiency Tympanic membrane perforation, right Transient ischemic attack Thoracic neuritis Tear of right rotator cuff Swallowing problem Sunburn of second degree Status post tympanoplasty Sprain of shoulder Seizure disorder ([facility]) Polyneuropathy associated with critical illness ([facility]) Polyneuropathy Osteoarthritis of spine with radiculopathy, lumbar region Obesity (BMI 30.0-34.9) Lumbar paraspinal muscle spasm Lateral femoral cutaneous neuropathy, left Internal derangement of right shoulder History of total right knee replacement Hemiparesis, left ([facility]) Hemiparesis due to old stroke ([facility]) Difficulty walking Depression Constipation Abnormal blood chemistry 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 ([facility]) Pre-operative cardiovascular examination Acute on chronic systolic CHF (congestive heart failure) ([facility]) History of CVA in adulthood Hyperkalemia Hypomagnesemia Metabolic acidosis RENETTA (acute kidney injury) ([facility]) Cardiorenal disease Past Medical History: Diagnosis Date Anxiety Arthritis Asthma CHF (congestive heart failure) ([facility]) Coronary artery disease Depression Gastroenteritis Heart valve disease Hypertension Kidney failure Lumbar spondylolysis Stroke ([facility]) Past Surgical History: Procedure Laterality Date [...] shower Prior Level (more content not included)... [facility] 08-03-2023 Note Clinical Nutrition A ssessment: Name: Mabel Moser Room: [address] [place] [address] Date: 1960 Date of Visit: 08/03/23 Admission Dx: Acute on chronic systolic CHF (congestive heart failure) ([facility]) [I50.23] Reason for assessment: length of stay Information obtained from: patient, medical record, and nursing Past Medical History: Diagnosis Date Anxiety Arthritis Asthma CHF (congestive heart failure) ([facility]) Coronary artery disease Depression Gastroenteritis Heart valve disease Hypertension Kidney failure Lumbar spondylolysis Stroke ([facility]) Current Medications: amitriptyline, 300 mg, oral, [...] endorses generally good po intake and appetite detective captain that continues while inpatient. Pt reported [...] Sensation: Tingling, Numbness LUE Sensation: Numbness, Tingling (Varn[employer] Maker strength not assessed by RD) Patient at risk for malnutrition according to hospital criteria, but does not meet the clinical characteristics per the Academy of Nutrition (more content not included)... [facility] 08-03-2023 Note Occupational Therapy Occupational Therapy Evaluation [...] Chronic diastolic heart failure, NYHA class 2 ([facility]) H/O gastric bypass Gouty arthropathy Gastroesophageal reflux disease Full thickness rotator cuff tear Fibromyalgia Low back pain Hip pain Hyperparathyroidism due to renal insufficiency ([facility]) Hypocalcemia Hypertensive disorder Hypoglycemia Hyponatremia Hypothyroidism Impingement syndrome of shoulder region Insomnia Anemia due to vitamin B12 deficiency Pulmonary hypertension ([facility]) Other fatigue Osteoarthritis of knee Morbid (severe) obesity due to excess calories ([facility]) Left atrial enlargement Lumbosacral neuritis Lumbosacral spondylosis without myelopathy Intractable migraine without status migrainosus Migraine Rheumatic tricuspid valve regurgitation Vitamin D deficiency Tympanic membrane perforation, right Transient ischemic attack Thoracic neuritis Tear of right rotator cuff Swallowing problem Sunburn of second degree Status post tympanoplasty Sprain of shoulder Seizure disorder ([facility]) Polyneuropathy associated with critical illness ([facility]) Polyneuropathy Osteoarthritis of spine with radiculopathy, lumbar region Obesity (BMI 30.0-34.9) Lumbar paraspinal muscle spasm Lateral femoral cutaneous neuropathy, left Internal derangement of right shoulder History of total right knee replacement Hemiparesis, left ([facility]) Hemiparesis due to old stroke ([facility]) Difficulty walking Depression Constipation Abnormal blood chemistry 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 ([facility]) Pre-operative cardiovascular examination Acute on chronic systolic CHF (congestive heart failure) ([facility]) History of CVA in adulthood Hyperkalemia Hypomagnesemia Metabolic acidosis RENETTA (acute kidney injury) ([facility]) Cardiorenal disease Past Medical History: Diagnosis Date Anxiety Arthritis Asthma CHF (congestive heart failure) ([facility]) Coronary artery disease Depression Gastroenteritis Heart valve disease Hypertension Kidney failure Lumbar spondylolysis Stroke ([facility]) Past Surgical History: Procedure Laterality Date [...] Occasional cues for (more content not included)... [facility] 08-03-2023 Note Hospital Medicine Discharge Summary Final Discharge Diagnosis: Acute on chronic systolic CHF (congestive heart failure) (CMS/HCC) RENETTA on CKD IV Cardiorenal syndrome Mild pulmonary hypertension-as evidenced on most recent right heart cath (11/2022) Essential Hypertension Hypothyroidism Alpha-1 antitrypsin carrier Morbid obesity status post gastric bypass surgery in 1999 Admission Diagnosis: Acute on chronic systolic CHF (congestive heart failure) (CMS/HCC) [I50.23] Hospital course: Mabel Moser is an 63 y.o. female who came from home with Past medical history of CHF, CKD IV, CAD, hypertension, GERD, hypothyroidism, CVA, seizure disorder, pulmonary hypertension, hx of DVT on eliquis presents to [facility] as a direct admission from [facility] with fluid overload. Patient reports [...] Center 08/08/2023 11:40 AM Macie Garcia NP [facility] Your medication list START taking these [...] Medications These medications were sent to [facility] - [place], [place] - [address] [place] [address] [address] [place] [address], [facility] [address] bumetanide 1 mg tablet carvedilol 6.25 mg tablet Mabel is allergic to betadine [povidone-iodine], cephalexin, ciprofloxacin, gabapentin, iodine, pregabalin, sulfa (sulfonamide antibiotics), sulfamethoxazole-trimethoprim, and amoxicillin-pot clavulanate. [place]position[place] [facility] [place] Discharge Condition: Stable Code Status: Full [...] displayed. Chemistry: Resul (more content not included)... [facility] 08-02-2023 Note ---- Attestation signed by Navi [...] Patient : Mabel Moser; 63 y.o. Location: [facility]/5183-01 Attending: Rayray Mix MD Admit Date: 07/28/2023 Hospital Day: 5 Reason for Consult: Acute Renal Failure Subjective: History of present illness: Mabel Moser is a 63 y.o. female onCKD Stage V alpha-1 antitrypsin carrier, HFpEF, essential hypertension GERD, hypothyroidism, CVA, seizures, DVT on eliquis, morbid obesity s/p gastric bypass surgery who initially presented to [facility] with concerns for worsening lower extremity edema, after gaining 50 pounds within past week. Patient was evaluated by PCP who increased Bumex dose from 1 mg TID to 3 mg TID but patient had no improvement in symptoms. On presentation to [place], patient's creatinine was 4.55 (baseline 1.8-2), phosphorus 11.2, potassium 5.7, magnesium 1.8, hemoglobin 9.2 and BUN 122. Patient was initiated on Bumex drip but developed hypotension and was changed to IV pushes. Patient was subsequently transferred to [facility] Upon assessment at [facility], patient has downtrend in Cr to 3.64, [...] 100 mcg, or (more content not included)... [facility] 08-02-2023 Note Hospital Medicine Daily Progress Note - 08/02/2023 12:05 PM; Room: 5183/5183-01 Admission: 07/28/2023 4:37 PM; Length of stay: 5 days THE HOSPITALIST TEAM PREFERS TO USE [email or web address] CHAT FOR COMMUNICATION 7AM-7PM. IF I DO NOT RESPOND WITHIN 15 MINUTES, PLEASE PAGE ME/CALL THROUGH THE SURGICAL SERVICES COORDINATOR. FROM 7PM-7AM, PLEASE PAGE [phone](COVR) Code Status: Full Code Barriers to Discharge: [...] on chronic systolic CHF (congestive heart failure) ([facility]) Active Problems: Benign essential hypertension CKD (chronic kidney disease) stage 3, GFR 30-59 ml/min ([facility]) Coronary arteriosclerosis Gastroesophageal reflux disease Hypothyroidism Pulmonary hypertension ([facility]) Seizure disorder ([facility]) Obesity (BMI 30.0-34.9) History of CVA in adulthood Hyperkalemia Hypomagnesemia Metabolic acidosis RENETTA (acute kidney injury) ([facility]) Cardiorenal disease Assessment and Plan Acute [...] -- PLATELETS AU (more content not included)... [facility] 08-02-2023 Note Subjective Follow up for: lower extremity edema with orthopnea, heart failure exacerbation. HPI: Mabel Moser is a 63 y.o. female with PMH of alpha-1 antitrypsin carrier, HFpEF, CKD 3A, HTN, GERD, hypothyroidism, CVA, seizures, DVT (on Eliquis at home), morbid obesity s/p gastric bypass surgery who initially presented to [facility] with concerns for bilateral worsening [...] duplex ultrasound. She was then transferred to [facility]. At [facility], her creatinine did improved slightly to 3.64, hemoglobin 8.5, troponin 0.01, BNP 265. She was initiated on IV Lasix 80 mg 3 times daily. Patient tells me that she did have a TTE performed at [facility] 2 months back but there are no [...] in the past she was admitted to [facility] in 2019 with fluid overload [...] [facility] She denies CP, worsened SOB, palpitations, lightheadedness [...] edema present. Sk (more content not included)... [facility] 08-01-2023 Note Subjective Follow up for: lower extremity edema with orthopnea, heart failure exacerbation. HPI: Mabel Moser is a 63 y.o. female with PMH of alpha-1 antitrypsin carrier, HFpEF, CKD 3A, HTN, GERD, hypothyroidism, CVA, seizures, DVT (on Eliquis at home), morbid obesity s/p gastric bypass surgery who initially presented to [facility] with concerns for bilateral worsening [...] duplex ultrasound. She was then transferred to [facility]. At [facility], her creatinine did improved slightly to 3.64, hemoglobin 8.5, troponin 0.01, BNP 265. She was initiated on IV Lasix 80 mg 3 times daily. Patient tells me that she did have a TTE performed at [facility] 2 months back but there are no [...] in the past she was admitted to [facility] in 2018 with fluid overload and responded to diuresis. [...] ???F) Temporal 90 22 96 % -- 07/31/23 2010 118/80 36.7 ???C (98 ???F) Temporal 78 [...] takes less t (more content not included)... [facility] 08-01-2023 Note ---- Attestation signed by Navi [...] gastric bypass surgery who initially presented to [facility] with concerns for worsening lower extremity edema, after gaining 50 pounds within past week. Patient was evaluated by PCP who increased Bumex dose from 1 mg TID to 3 mg TID but patient had no improvement in symptoms. On presentation to [place], patient's creatinine was 4.55 (baseline 1.8-2), phosphorus 11.2, potassium 5.7, magnesium 1.8, hemoglobin 9.2 and BUN 122. Patient was initiated on Bumex drip but developed hypotension and was changed to IV pushes. Patient was subsequently transferred to [facility] Upon assessment at [facility], patient has downtrend in Cr to 3.64, [...] 100 mg, oral (more content not included)... [facility] 08-01-2023 Note 08/01/23 8042 Admission Assessment Questions Verify insurance with patient Yes ([facility] Medicare/[place] Medicaid) Do you understand medical disease or what brought you into the hospital? Yes ( I'm in kidney failure & I went into fluid overload ) Who is your current PCP? Angle Santana MD Can I schedule a follow up appointment for you at the time of discharge? No ( I go to [facility] for alot of my physicians ) Do you understand why you are taking your current medications? Yes Are you taking your medications as prescribed? Yes Did patient provide teach back? No Would you like use our pharmacy iMeds to fill your new medications at the time of Discharge? Yes Does the patient have a case management associate assigned to them through their insurance? No Living Arrangement (Current/Prior to Hospitalization) Private residence;Home self care;Other (Comment) (Lives with Delio in 1 story Home+Basement with Ramp/Laundry; stated active with [facility]; Support system 2 Daughter live locally, Lost Son Apr 2023 liver failure & lost daughter; Pt has a R Chest [employer]) Does the patient have history of HHC or SNF? Yes (stated active with [facility], previously went to SNF about 8 hrs ago & also [facility] in [place]) Assistive Device Cane;Grab bars;Raised toilet seat;Walker;Wheelchair (has [...] you able to send link and activate MyChart? MyChart already active Screen completed. Await medical stability: diurese with Lasix 80 mg IV q12hr (possibly transition to oral today), ?medically ready tomorrow, Check Renal US today, Creatine up 2.68 today<- 2.51<-3.64, Mag 1.8, Hgb 9.9<-9.1, Follow-up with Nephrology recommendations, Optimize HF medications. Dc Plan: Home, resume [facility], Await PT/OT evaluations today to make sure this is a safe dc plan. [facility] 08-01-2023 Note ---- Attestation signed by Rayray [...] Progress Note - 08/01/2023 11:05 AM; Room: [address] [place] [address] Admission: 07/28/2023 4:37 PM; Length of stay: 4 days THE HOSPITALIST TEAM PREFERS TO USE [email or web address] CHAT FOR COMMUNICATION 7AM-7PM. IF I DO NOT RESPOND WITHIN 15 MINUTES, PLEASE PAGE ME/CALL THROUGH THE SURGICAL SERVICES COORDINATOR. FROM 7PM-7AM, PLEASE PAGE [phone](COVR) Code Status: Full Code Barriers to Discharge: Renal failure Expected Discharge Date: ~08/02? Discharge Destination: home Overview Patient is seen for evaluation and management of ARF. Subjective Mabel Haynes Larobert was seen and examined at bedside. Patient [...] on chronic systolic CHF (congestive heart failure) ([facility]) Active Problems: Benign essential hypertension CKD (chronic kidney disease) stage 3, GFR 30-59 ml/min ([facility]) Coronary arteriosclerosis Gastroesophageal reflux disease Hypothyroidism Pulmonary hypertension ([facility]) Seizure disorder ([facility]) Obesity (BMI 30.0-34.9) History of CVA in adulthood Hyperkalemia Hypomagnesemia Metabolic acidosis RENETTA (acute kidney injury) ([facility]) Cardiorenal disease Assessment and Plan Acute [...] CAD, Continue h (more content not included)... [facility] 07-31-2023 Note ---- Attestation signed by Rinku [...] tomorrow. She has no urgent need for HARD METALS HAND ENGRAVER, she will need to follow up with her fuels engineer upon discharge. ---- Nephrology Progress Note [...] gastric bypass surgery who initially presented to [facility] with concerns for worsening lower extremity edema, after gaining 50 pounds within past week. Patient was evaluated by PCP who increased Bumex dose from 1 mg TID to 3 mg TID but patient had no improvement in symptoms. On presentation to [place], patient's creatinine was 4.55 (baseline 1.8-2), phosphorus 11.2, potassium 5.7, magnesium 1.8, hemoglobin 9.2 and BUN 122. Patient was initiated on Bumex drip but developed hypotension and was changed to IV pushes. Patient was subsequently transferred to [facility]. Upon assessment at [facility], patient has downtrend in Cr to 3.64, [...] shifts: In: 1350 (16.3 mL/kg) [P.O.:1350] Out: 30988 (128.3 mL/kg) [Urine:88799 (3.6 mL/kg/hr)] Weight: 83 kg Vital signs: [...] oxyCODONE, Insert periph (more content not included)... [facility] 07-31-2023 Note Subjective Follow up for: lower extremity edema with orthopnea, heart failure exacerbation. HPI: Mabel Moser is a 63 y.o. female with PMH of alpha-1 antitrypsin carrier, HFpEF, CKD 3A, HTN, GERD, hypothyroidism, CVA, seizures, DVT (on Eliquis at home), morbid obesity s/p gastric bypass surgery who initially presented to [facility] with concerns for bilateral worsening [...] duplex ultrasound. She was then transferred to [facility]. At [facility], her creatinine did improved slightly to 3.64, hemoglobin 8.5, troponin 0.01, BNP 265. She was initiated on IV Lasix 80 mg 3 times daily. Patient tells me that she did have a TTE performed at [facility] 2 months back but there are no [...] in the past she was admitted to [facility] in 2019 with fluid overload [...] ???F) Temporal 77 14 98 % -- 07/30/23 2014 142/81 36.3 ???C (97.3 ???F) Temporal 75 [...] Psychiatric: Mood an (more content not included)... [facility] 07-31-2023 Note Pt admitted to [facility] for acute on chronic systolic HF; hx of CHF, CKD 3, CAD, hypertension, GERD, hypothyroidism, CVA, seizure disorder, pulmonary hypertension, hx of DVT. Pt has echo scheduled. I will wait for current echo results to determine pt's eligibility to participate in cardiac rehab (CR) therapy with HF diagnosis and follow up with pt, if appropriate. Kailey Gerardo, BSN steel pickler Outpatient Coordinator Cardiopulmonary Rehab [facility] 07-31-2023 Note Hospital Medicine Daily Progress Note - 07/31/2023 10:40 AM; Room: 5183/5183-01 Admission: 07/28/2023 4:37 PM; Length of stay: 3 days THE HOSPITALIST TEAM PREFERS TO USE [email or web address] CHAT FOR COMMUNICATION 7AM-7PM. IF I DO NOT RESPOND WITHIN 15 MINUTES, PLEASE PAGE ME/CALL THROUGH THE SURGICAL SERVICES COORDINATOR. FROM 7PM-7AM, PLEASE PAGE [phone](COVR) Code Status: Full Code Barriers to Discharge: [...] on chronic systolic CHF (congestive heart failure) ([facility]) Active Problems: Benign essential hypertension CKD (chronic kidney disease) stage 3, GFR 30-59 ml/min ([facility]) Coronary arteriosclerosis Gastroesophageal reflux disease Hypothyroidism Pulmonary hypertension ([facility]) Seizure disorder ([facility]) History of CVA in adulthood Hyperkalemia Hypomagnesemia Metabolic acidosis RENETTA (acute kidney injury) ([facility]) Cardiorenal disease Assessment and Plan Acute [...] INR -- -- 1.15* Chemistry: Results from [facility] (more content not included)... [facility] 07-30-2023 Note ---- Attestation signed by Rinku [...] bid from tid. No urgent need for HARD METALS HAND ENGRAVER, will continue to follow along. ---- Nephrology [...] gastric bypass surgery who initially presented to [facility] with concerns for worsening lower extremity edema, after gaining 50 pounds within past week. Patient was evaluated by PCP who increased Bumex dose from 1 mg TID to 3 mg TID but patient had no improvement in symptoms. On presentation to [place], patient's creatinine was 4.55 (baseline 1.8-2), phosphorus 11.2, potassium 5.7, magnesium 1.8, hemoglobin 9.2 and BUN 122. Patient was initiated on Bumex drip but developed hypotension and was changed to IV pushes. Patient was subsequently transferred to [facility] Upon assessment at [facility], patient has downtrend in Cr to 3.64, [...] 3 completed shifts: In: 2356.1 (27.6 mL/kg) [P.O.:2056; I.V.:200.1 (2.3 mL/kg); IV Piggyback:100] Out: 9750 [...] lock IV AND* (more content not included)... [facility] 07-30-2023 Note Subjective Reason for Consult: Bilaterally worsening lower extremity edema with orthopnea, concerning for heart failure exacerbation. HPI: Maebl Moser is a 63 y.o. female with PMH of alpha-1 antitrypsin carrier, HFpEF, CKD 3A, HTN, GERD, hypothyroidism, CVA, seizures, DVT (on Eliquis at home), morbid obesity s/p gastric bypass surgery who initially presented to [facility] with concerns for bilateral worsening [...] duplex ultrasound. She was then transferred to [facility]. At [facility], her creatinine did improved slightly to 3.64, hemoglobin 8.5, troponin 0.01, BNP 265. She was initiated on IV Lasix 80 mg 3 times daily. Patient tells me that she did have a TTE performed at [facility] 2 months back but there are no [...] in the past she was admitted to [facility] in 2019 with fluid overload [...] is cooperative. Thought (more content not included)... [facility] 07-30-2023 Note Hospital Medicine Daily Progress Note - 07/30/2023 8:15 AM; Room: 5183/5183-01 Admission: 07/28/2023 4:37 PM; Length of stay: 2 days THE HOSPITALIST TEAM PREFERS TO USE [email or web address] CHAT FOR COMMUNICATION 7AM-7PM. IF I DO NOT RESPOND WITHIN 15 MINUTES, PLEASE PAGE ME/CALL THROUGH THE SURGICAL SERVICES COORDINATOR. FROM 7PM-7AM, PLEASE PAGE [phone](COVR) Code Status: Full Code Barriers to Discharge: Renal failure Expected Discharge Date: ~08/02? Discharge Destination: home Overview Patient is seen for evaluation and management of ARF. Subjective Mabel Ivy Tovarrobert was seen and examined at [...] on chronic systolic CHF (congestive heart failure) ([facility]) Active Problems: Benign essential hypertension CKD (chronic kidney disease) stage 3, GFR 30-59 ml/min ([facility]) Coronary arteriosclerosis Gastroesophageal reflux disease Hypothyroidism Pulmonary hypertension ([facility]) Seizure disorder ([facility]) History of CVA in adulthood Hyperkalemia Hypomagnesemia Metabolic acidosis RENETTA (acute kidney injury) ([facility]) Assessment and Plan Acute decompensated HF [...] meals Pertinent Invest (more content not included)... [facility] 07-29-2023 Note Hospital Medicine Daily Progress Note - 07/29/2023 4:06 PM; Room: [facility]/5183- Admission: 07/28/2023 4:37 PM; Length of stay: 1 days THE HOSPITALIST TEAM PREFERS TO USE [email or web address] CHAT FOR COMMUNICATION 7AM-7PM. IF I DO NOT RESPOND WITHIN 15 MINUTES, PLEASE PAGE ME/CALL THROUGH THE SURGICAL SERVICES COORDINATOR. FROM 7PM-7AM, PLEASE PAGE [phone](COVR) Code Status: Full Code Barriers to Discharge: Renal failure Expected Discharge Date: ~08/02? Discharge Destination: home Overview Patient is seen for evaluation and management of ARF. Marry Moser was seen and examined at bedside. [...] on chronic systolic CHF (congestive heart failure) (CMS/HCC) Active Problems: Benign essential hypertension CKD (chronic kidney disease) stage 3, GFR 30-59 ml/min (CMS/HCC) Coronary arteriosclerosis Gastroesophageal reflux disease Hypothyroidism Pulmonary hypertension (CMS/HCC) Seizure disorder (CMS/HCC) History of CVA in adulthood Hyperkalemia Hypomagnesemia [...] 1.15* -- -- (more content not included)... [facility] 07-28-2023 Note Hospital Medicine History and Physical 07/28/2023 6:16 PM THE HOSPITALIST TEAM PREFERS TO USE [employer] FOR COMMUNICATION 7AM-7PM. IF I DO NOT RESPOND WITHIN 15 MINUTES, PLEASE PAGE ME/CALL THROUGH THE SURGICAL SERVICES COORDINATOR. FROM 7PM-7AM, PLEASE PAGE [phone](COVR) Chief Complaint Direct admission with fluid overload History of Present Illness Mabel Moser is an 63 y.o. female who came from home with Past medical history of CHF, CKD 3, CAD, hypertension, GERD, hypothyroidism, CVA, seizure disorder, pulmonary hypertension, hx of DVT on eliquis presents to [facility] as a direct admission from [facility] with fluid overload. Patient reports worsening bilateral lower extremity edema over the last week. Reports a 50 pound weight gain within that same time period. States that she saw her PCP as well as her board turner this past week who increased her Bumex to 3 mg 3 times daily without relief. Patient saw her PCP yesterday who sent her directly to [place] for IV diuresis. Upon arrival there, patient [...] her normal limit, patient was transferred to [facility] for higher level of care. Upon arrival to [facility] repeat labs are completed showing pH 7.28, hemoglobin 8.5, magnesium 1.6, BUN 109, creatinine 3.64, BNP 265. Spoke with fuels engineer on the phone as patient with [...] on chronic systolic CHF (congestive heart failure) ([facility]) 07/28/2023 Polyneuropathy associated with critical illness ([facility]) 11/27/2022 Polyneuropathy 11/27/2022 Osteoarthritis of spine with radiculopathy, lumbar region 11/27/2022 Obesity (BMI 30-39.9) 11/27/2022 Lumbar paraspinal muscle spasm 11/27/2022 Lateral femoral cutaneous neuropathy, left 11/27/2022 Internal derangement of right shoulder 11/27/2022 History of total right knee replacement 11/27/2022 Hemiparesis, left ([facility]/HCC) 11/27/2022 Hemiparesis due to old stroke ([facility]) 11/27/2022 Dif (more content not included)... [facility] 07-13-2023 Note [place] Cardiology - [facility] Subjective Mabel Moser is a 63 y.o. year old female patient being seen for 6 mo follow up chronic diastolic heart failure, CKD, and CAD. Says she saw Dr. Santana yesterday and he raised her spironolactone to 100mg, which she takes PRN. 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 [facility] 07-03-2023 Progress note Note Date/Time July 03, 2023 12:18pm [facility] EN[facility] [address] [place] [address] Nephrology Progress Note Signed Patient: Mabel Moser MR#: [id number] : 1960 Acct:[id number] Age/Sex: 63 / F Adm Date: 4 Loc: Room: [address] [place] [address] Type: ADM IN Attending Dr: Jim Randhawa [...] 2 Mg Tablet) 2 mg PO DAILY [facility] Stop: 06/29/24 08:59 Last Admin: 07/03/23 08:13 Dose: 2 mg Bisacodyl (Bisacodyl 5 Mg Tablet.Dr) 10 mg PO DAILY PRN PRN Reason: Constipation Stop: 06/28/24 21:34 Bumetanide (Bumetanide 1 Mg/4 Ml Vial) 1 mg IV-PUSH BID@0800,1600 [facility] Stop: 06/29/24 07:59 Last Admin: 07/03/23 08:14 Dose: 1 mg Calcium Acetate (Calcium Acetate 667 Mg Capsule) 667 mg PO BID.WITH.MEALS [facility] Stop: 06/29/24 07:59 Last Admin: 07/03/23 08:13 Dose: 667 mg Duloxetine HCl (Duloxetine 60 Mg Capsule.Dr) 120 mg PO DAILY [facility] Stop: 06/29/24 08:59 Last Admin: 07/03/23 08:13 Dose: 120 mg Fentanyl (Fentanyl Patch 100 Mcg/Hour Patch.Td72) 100 mcg TRANSDERML Q72H [facility]; Protocol Last Admin: 07/03/23 08:12 Dose: 100 mcg Ferrous Sulfate (Ferrous Sulfate 324 Mg Tablet.) 324 mg PO DAILY [facility] Stop: 06/29/24 08:59 Last Admin: 07/03/23 08:13 Dose: 324 mg Gabapentin (Gabapentin 100 Mg Capsule) 100 mg PO TID [facility] Stop: 06/29/24 08:59 Last Admin: 07/03/23 08:13 Dose: 100 mg Guaifenesin/Dextromethorphan (Guaif/Dextromethorphan Syrup 10 Ml Udc) 10 ml PO Q8H PRN PRN Reason: Cough Stop: 06/28/24 21:34 Heparin Sodium (Porcine) (Heparin 5,000 Unit/Ml Vial) 5,000 unit SUBCUT Q12HR [facility] Stop: 06/29/24 08:59 Last Admin: 07/03/23 08:14 Dose: 5,000 unit Levothyroxine Sodium (Levothyroxine 100 Mcg Tablet) 100 mcg PO DAILY@0630 [facility] Stop: 06/29/24 06:29 Last Admin: 07/03/23 06:23 Dose: 100 mcg Linaclotide (Linaclotide 290 Mcg Capsule) 290 mcg PO Q48HR [facility] Stop: 06/29/24 08:59 Last Admin: 07/02/23 08:59 Dose: 290 mcg Liothyronine Sodium (Liothyronine 25 Mcg Tablet) 25 mcg PO DAILY@0630 [facility] Stop: 06/29/24 10:59 Last Admin: 07/03/23 06:23 Dose: 25 mcg Loratadine (Loratadine 10 Mg Tablet) 10 mg PO DAILY PRN PRN Reason: Allergy Symptoms Stop: 06/29/24 06:54 Melatonin (Melatonin 5 Mg Tablet) 5 mg PO QHS PRN PRN Reason: Insomnia Stop: 06/28/24 21:34 Metoprolol Tartrate (Metoprolol Tartrate 25 Mg Tablet) 25 mg PO BID [facility] Stop: 06/29/24 20:59 Last Admin: 07/03/23 08:14 Dose: 25 mg Ondansetron HCl (Ondansetron 4 Mg/2 Ml Vial) 4 mg IV-PUSH Q8H PRN PRN Reason: Nausea And Vomiting Stop: 06/28/24 21:34 Oxycodone/Acetaminophen (Oxycodone/Acetaminophen 5-325 Mg Tablet) 2 tab PO Q6H PRN PRN Reason: Pain Last Admin: 07/03/23 11:25 Dose: 2 tab Pantoprazole Sodium (Pantoprazole 40 Mg Tablet.Dr) 40 mg PO BID [facility] Stop: 06/29/24 08:59 Last Admin: 07/03/23 08:13 Dose: 40 mg Primidone (Primidone 50 Mg Tablet) 100 mg PO HS [facility] Stop: 06/29/24 21:59 Last Admin: 07/02/23 21:00 Dose: 100 mg Sevelamer Carbonate (Sevelamer Carbonate 800 Mg Tablet) 800 mg PO TID.WITH.MEALS [facility] Stop: 06/29/24 11:59 Last Admin: 07/03/23 11:22 [...] signed by Raeann Kirkpatrick MD> 07/03/23 1218 [facility] Work Phone: 1(424) 520-296201-07-2024 Progress note Author Jim Randhawa [facility] July 02, 2023 11:26am Note Date/Time July 02, 2023 11 :26am [facility] [address] [place] [address] Hospitalist Progress Note Signed Patient: Mabel Moser MR#: [id number] : 1960 Acct:[id number] Age/Sex: 63 / F Adm Date: 4 Loc: Room: [address] [place] [address] Type: ADM IN Attending Dr: Jim Randhawa [...] Tablet PO 06/29/24 10:59 25 mcg DAILY@0630 [facility] Administration Loratadine 10 mg 06/30/23 06:55 Loratadine [...] 1123 Signed By: <Electronically signed by Jim Randhawa, > 07/02/23 1126 [facility] Work Phone: 1(817) 234-382701-07-2024 Progress note Author [facility] July 02, 2023 10:42am Note Date/Time July 02, 2023 10 :42am [facility] [address] [place] [address] Nephrology Progress Note Signed Patient: Mabel Moser MR#: [id number] : 1960 Acct:[id number] Age/Sex: 63 / F Adm Date: 4 Loc: Room: [address] [place] [address] Type: ADM IN Attending Dr: Jim Randhawa [...] 2 Mg Tablet) 2 mg PO DAILY [facility] Stop: 06/29/24 08:59 Last Admin: 07/02/23 08:55 Dose: 2 mg Bisacodyl (Bisacodyl 5 Mg Tablet.) 10 mg PO DAILY PRN PRN Reason: Constipation Stop: 06/28/24 21:34 Bumetanide (Bumetanide 1 Mg/4 Ml Vial) 1 mg IV-PUSH BID@0800,1600 [facility] Stop: 06/29/24 07:59 Last Admin: 07/02/23 08:55 Dose: 1 mg Calcium Acetate (Calcium Acetate 667 Mg Capsule) 667 mg PO BID.WITH.MEALS [facility] Stop: 06/29/24 07:59 Last Admin: 07/02/23 08:55 Dose: 667 mg Duloxetine HCl (Duloxetine 60 Mg Capsule.) 120 mg PO DAILY [facility] Stop: 06/29/24 08:59 Last Admin: 07/02/23 08:59 Dose: 120 mg Fentanyl (Fentanyl Patch 100 Mcg/Hour Patch.Td72) 100 mcg TRANSDERML Q72H [facility]; Protocol Last Admin: 06/30/23 09:31 Dose: 100 mcg Ferrous Sulfate (Ferrous Sulfate 324 Mg Tablet.) 324 mg PO DAILY [facility] Stop: 06/29/24 08:59 Last Admin: 07/02/23 08:55 Dose: 324 mg Gabapentin (Gabapentin 100 Mg Capsule) 100 mg PO TID [facility] Stop: 06/29/24 08:59 Last Admin: 07/02/23 08:55 Dose: 100 mg Guaifenesin/Dextromethorphan (Guaif/Dextromethorphan Syrup 10 Ml Udc) 10 ml PO Q8H PRN PRN Reason: Cough Stop: 06/28/24 21:34 Heparin Sodium (Porcine) (Heparin 5,000 Unit/Ml Vial) 5,000 unit SUBCUT Q12HR [facility] Stop: 06/29/24 08:59 Last Admin: 07/02/23 08:55 Dose: 5,000 unit Levothyroxine Sodium (Levothyroxine 100 Mcg Tablet) 100 mcg PO DAILY@0630 [facility] Stop: 06/29/24 06:29 Last Admin: 07/02/23 05:48 Dose: 100 mcg Linaclotide (Linaclotide 290 Mcg Capsule) 290 mcg PO Q48HR [facility] Stop: 06/29/24 08:59 Last Admin: 07/02/23 08:59 Dose: 290 mcg Liothyronine Sodium (Liothyronine 25 Mcg Tablet) 25 mcg PO DAILY@0630 [facility] Stop: 06/29/24 10:59 Last Admin: 07/02/23 05:48 Dose: 25 mcg Loratadine (Loratadine 10 Mg Tablet) 10 mg PO DAILY PRN PRN Reason: Allergy Symptoms Stop: 06/29/24 06:54 Melatonin (Melatonin 5 Mg Tablet) 5 mg PO QHS PRN PRN Reason: Insomnia Stop: 06/28/24 21:34 Metoprolol Tartrate (Metoprolol Tartrate 25 Mg Tablet) 25 mg PO BID [facility] Stop: 06/29/24 20:59 Last Admin: 07/02/23 08:55 Dose: 25 mg Ondansetron HCl (Ondansetron 4 Mg/2 Ml Vial) 4 mg IV-PUSH Q8H PRN PRN Reason: Nausea And Vomiting Stop: 06/28/24 21:34 Oxycodone/Acetaminophen (Oxycodone/Acetaminophen 5-325 Mg Tablet) 2 tab PO Q6H PRN PRN Reason: Pain Last Admin: 07/02/23 02:00 Dose: 2 tab Pantoprazole Sodium (Pantoprazole 40 Mg Tablet.Dr) 40 mg PO BID [facility] Stop: 06/29/24 08:59 Last Admin: 07/02/23 08:55 Dose: 40 mg Primidone (Primidone 50 Mg Tablet) 100 mg PO HS [facility] Stop: 06/29/24 21:59 Last Admin: 07/01/23 21:21 Dose: 100 mg Sevelamer Carbonate (Sevelamer Carbonate 800 Mg Tablet) 800 mg PO TID.WITH.MEALS [facility] Stop: 06/29/24 11:59 Last Admin: 07/02/23 08:55 [...] signed by MD Los Grissom> 07/02/23 1042 [facility] Work Phone: 1(128) 440-443601-06-2024 Progress note Author Jim Randhawa [facility] July 01, 2023 1:52pm Note Date/Time July 01, 2023 1: 37pm [facility] EN[facility] [address] [place] [address] Hospitalist Progress Note Signed Patient: Mabel Moser MR#: [id number] : 1960 Acct:[id number] Age/Sex: 63 / F Adm Date: 4 Loc: Room: [address] [place] [address] Type: ADM IN Attending Dr: Jim Randhawa [...] 10 mg 06/29/23 21:35 Bisacodyl 5 Mg Tablet.Dr PO 06/28/24 21:34 DAILY PRN Constipation Bumetanide [...] subcu Documented By: Jim Randhawa DO 07/01/23 8056 Signed By: <Electronically signed by Jim Randhawa DO> 07/01/23 6571 [facility] Work Phone: 1(595) 292-497001-06-2024 Progress note Author Los Grissom [facility] July 01, 2023 10:16am Note Date/Time July 01, 2023 10 :16am [facility] ENTER [address] [place], [place] [id number] Nephrology Progress Note Signed Patient: Mabel Moser MR#: [id number] : 1960 Acct:[id number] Age/Sex: 63 / F Adm Date: 4 Loc: Room: [address] [address] Type: ADM IN Attending Dr: Jim Randhawa [...] 50 Mg Tablet) 150 mg PO QHS [facility] Stop: 06/29/24 21:59 Last Admin: 06/30/23 21:17 Dose: 150 mg Aripiprazole (Aripiprazole 2 Mg Tablet) 2 mg PO DAILY [facility] Stop: 06/29/24 08:59 Last Admin: 07/01/23 08:21 Dose: 2 mg Bisacodyl (Bisacodyl 5 Mg Tablet.Dr) 10 mg PO DAILY PRN PRN Reason: Constipation Stop: 06/28/24 21:34 Bumetanide (Bumetanide 1 Mg/4 Ml Vial) 1 mg IV-PUSH BID@0800,1600 [facility] Stop: 06/29/24 07:59 Last Admin: 07/01/23 08:21 Dose: 1 mg Calcium Acetate (Calcium Acetate 667 Mg Capsule) 667 mg PO BID.WITH.MEALS [facility] Stop: 06/29/24 07:59 Last Admin: 07/01/23 08:20 Dose: 667 mg Duloxetine HCl (Duloxetine 60 Mg Capsule.) 120 mg PO DAILY [facility] Stop: 06/29/24 08:59 Last Admin: 07/01/23 08:20 Dose: 120 mg Fentanyl (Fentanyl Patch 100 Mcg/Hour Patch.Td72) 100 mcg TRANSDERML Q72H [facility]; Protocol Last Admin: 06/30/23 09:31 Dose: 100 mcg Ferrous Sulfate (Ferrous Sulfate 324 Mg Tablet.) 324 mg PO DAILY [facility] Stop: 06/29/24 08:59 Last Admin: 07/01/23 08:20 Dose: 324 mg Gabapentin (Gabapentin 100 Mg Capsule) 100 mg PO TID [facility] Stop: 06/29/24 08:59 Last Admin: 07/01/23 08:20 Dose: 100 mg Guaifenesin/Dextromethorphan (Guaif/Dextromethorphan Syrup 10 Ml Udc) 10 ml PO Q8H PRN PRN Reason: Cough Stop: 06/28/24 21:34 Heparin Sodium (Porcine) (Heparin 5,000 Unit/Ml Vial) 5,000 unit SUBCUT Q12HR [facility] Stop: 06/29/24 08:59 Last Admin: 07/01/23 08:21 Dose: 5,000 unit Levothyroxine Sodium (Levothyroxine 100 Mcg Tablet) 100 mcg PO DAILY@0630 [facility] Stop: 06/29/24 06:29 Last Admin: 07/01/23 05:46 Dose: 100 mcg Linaclotide (Linaclotide 290 Mcg Capsule) 290 mcg PO Q48HR [facility] Stop: 06/29/24 08:59 Last Admin: 06/30/23 09:33 Dose: 290 mcg Liothyronine Sodium (Liothyronine 25 Mcg Tablet) 25 mcg PO DAILY@0630 [facility] Stop: 06/29/24 10:59 Last Admin: 07/01/23 05:46 Dose: 25 mcg Loratadine (Loratadine 10 Mg Tablet) 10 mg PO DAILY PRN PRN Reason: Allergy Symptoms Stop: 06/29/24 06:54 Melatonin (Melatonin 5 Mg Tablet) 5 mg PO QHS PRN PRN Reason: Insomnia Stop: 06/28/24 21:34 Metoprolol Tartrate (Metoprolol Tartrate 25 Mg Tablet) 25 mg PO BID [facility] Stop: 06/29/24 20:59 Last Admin: 07/01/23 08:20 [...] signed by MD Los Grissom> 07/01/23 1016 [facility] Work Phone: 1(688) 713-625401-05-2024 Progress note Author Jim Randhawa [facility] June 30, 2023 1:13pm Note Date/Time June 30, 2023 1: 13pm [facility] EN[facility] [address] [place] [address] Hospitalist Progress Note Signed Patient: Mabel Moser MR#: [id number] : 1960 Acct:[id number] Age/Sex: 63 / F Adm Date: 4 Loc: Room: [address] [place] [address] Type: ADM IN Attending Dr: Jim Randhawa [...] signed by Jim Randhawa DO> 06/30/23 1313 [facility] Work Phone: 1(863) 772-562401-05-2024 Consult note Author Los Grissom [facility] June 30, 2023 10:45am Note Date/Time June 30, 2023 10 :26am [facility] EN[facility] [address] [place] [address] Nephrology Consult Note Signed Patient: Mabel Moser MR#: [id number] : 1960 Acct:[id number] Age/Sex: 63 / F Adm Date: 4 Loc: Room: [address] [place] [address] Type: ADM IN Attending Dr: Jim Randhawa [...] and no additional complaints, except as documented [facility] Medical History CAD (coronary artery disease) [...] Mg/4 Ml Vial) 1 mg IV-PUSH BID@0800,1600 [facility] Stop: 06/29/24 07:59 Last Admin: 06/30/23 09:31 Dose: 1 mg Calcium Acetate (Calcium Acetate 667 Mg Capsule) 667 mg PO BID.WITH.MEALS [facility] Stop: 06/29/24 07:59 Last Admin: 06/30/23 09:30 Dose: 667 mg Duloxetine HCl (Duloxetine 60 Mg Capsule.) 120 mg PO DAILY [facility] Stop: 06/29/24 08:59 Last Admin: 06/30/23 09:30 Dose: 120 mg Escitalopram Oxalate (Escitalopram 20 Mg Tablet) 20 mg PO DAILY [facility] Stop: 06/29/24 08:59 Last Admin: 06/30/23 09:31 Dose: 20 mg Fentanyl (Fentanyl Patch 100 Mcg/Hour Patch.Td72) 100 mcg TRANSDERML Q72H [facility]; Protocol Last Admin: 06/30/23 09:31 Dose: 100 mcg Ferrous Sulfate (Ferrous Sulfate 324 Mg Tablet.Dr) 324 mg PO DAILY [facility] Stop: 06/29/24 08:59 Last Admin: 06/30/23 09:31 Dose: 324 mg Gabapentin (Gabapentin 100 Mg Capsule) 100 mg PO TID [facility] Stop: 06/29/24 08:59 Last Admin: 06/30/23 09:31 Dose: 100 mg Guaifenesin/Dextromethorphan (Guaif/Dextromethorphan Syrup 10 Ml Udc) 10 ml PO Q8H PRN PRN Reason: Cough Stop: 06/28/24 21:34 Heparin Sodium (Porcine) (Heparin 5,000 Unit/Ml Vial) 5,000 unit SUBCUT Q12HR [facility] Stop: 06/29/24 08:59 Last Admin: 06/30/23 09:32 Dose: 5,000 unit Levothyroxine Sodium (Levothyroxine 100 Mcg Tablet) 100 mcg PO DAILY@0630 [facility] Stop: 06/29/24 06:29 Last Admin: 06/30/23 05:55 Dose: 100 mcg Linaclotide (Linaclotide 290 Mcg Capsule) 290 mcg PO Q48HR [facility] Stop: 06/29/24 08:59 Last Admin: 06/30/23 09:33 Dose: 290 mcg Liothyronine Sodium (Liothyronine 25 Mcg Tablet) 25 mcg PO DAILY [facility] Stop: 06/29/24 08:59 Loratadine (Loratadine 10 Mg [...] 50 Mg Tablet) 100 mg PO HS [facility] Stop: 06/29/24 21:59 Sevelamer Carbonate (Sevelamer Carbonate [...] <Electronically signed by MD Los Grissom> 06/30/23 9697 [facility] Work Phone: 1(757) 415-361201-04-2024 History and physical note Author Beatriz Oh [facility] June 29, 2023 9:51pm Note Date/Time June 29, 2023 9: 47pm [facility] EN[facility] [address] [place] [address] Hospitalist H&P Signed Patient: Mabel Moser MR#: [id number] : 1960 Acct:[id number] Age/Sex: 63 / F Adm Date: 4 Loc: Room: [address] [place] [address] Type: ADM IN Attending Dr: Papito Garces [...] She denies having dysuria, hematuria, or frequency. [facility] Medical History CAD (coronary artery disease) [...] mg PO BID 08/31/18 [History Confirmed 10/28/22] bmaembjf-iwhsgws-fanl-iron fum 18 mg-folic 600 mcg-vit K 80 [...] TID PRN Edema 10/28/22 [History Confirmed 10/28/22] jsnafmjqyf-kedhmnqosrpww-ehphcxoe 50 mg-325 mg-40 mg capsule 1 cap [...] <Electronically signed by Beatriz Oh MD> 06/29/232150 [facility] Work Phone: 1(549) 434-222810-10-2023 Evaluation note* Encounter Date Diagnosis Assessment Notes [...] G43.519) Advised the patient to follow with [facility] neurology clinic Mar, Chronic kidney disea [...] (ICD-10 - E83.39) Continue [employer] with meals [employer] Other [id number] NoteRemains stable without worsening symptomsUnMary Rutan Hospital08-30-2023 NoteCoronary artery disease is stable Continue GDMT continue risk factor modifications- heart healthy diet, regular exercise as tolerated and continue all medications.[facility] 02-22-2023 NoteNYHC II Continue GDMT- entresto- metoprolol and aldactone have been dc's r/t hypotension. Diuretic therapy- bumex 2 mg bid- Monitor daily weights, I&O, fluid restriction 1.5-2L/day, renal function and electrolytes- please maintain K+>4 and Mg > 2UnMary Rutan Hospital 02-22-2023 NoteRCRI- 0???points Class I Risk 3.9???% 30-day risk of , [place], or cardiac arrest From a cardiology perspective pt may proceed with Total knee arthroplasty with Dr Dennis, she is a low to moderate risk for a low to mod risk orthopedic surgery. She does not take any Aspirin, or anticoagulation. Please monitor hemodynamics carefully and prevent any major fluid shifts.[facility]08-30-2023 NoteUTP CARDIOLOGY PROGRESS NOTE HPI: Mabel Moser is a 62 y.o. female here for pre surgery risk stratification Patient here for 2 mo follow up pulmonary hypertension and hypertension. She was admitted to [facility] twice this past month. She [...] is alert and or (more content not included)...[facility]08-30-2023 NotePatient here for 2 mo follow up pulmonary hypertension and hypertension. She was admitted to [facility] twice this past month. She needs cleared for knee replacement surgery with Dr. Dennis. Denies chest pain, lightheadedness, and palpitations. Says SOB is improving. Review of Systems Constitutional: Positive for malaise/fatigue. Cardiovascular: Positive for dyspnea on exertion (improving). Musculoskeletal: Positive for arthritis, back pain and joint pain. All other systems reviewed and are negative.[facility] 02-16-2023 NoteSubjective: Patient ID: Mabel Moser [...] History: Diagnosis Date CHF (congestive heart failure) ([facility]) Coronary artery disease Heart valve disease [...] intact to light touch distally Imaging: Where: [place] Date: 01/13/2023 x-ray left knee(s) : Images [...] to proceed with surgery. Oneal Downey, M3 [facility] 02/16/23 As the teaching physician, I have personally performed or re-performed the history of present illness, physical exam and medical decision-making activities of the encounter and verified the medical student's documentation. I made pertinent changes as necessary to ensure accurate documentation. Additional Comments: [facility]07-21-2023 NoteData Mabel Tovarrobert 1960 Chief Complaint Patient presents with Left [...] physical therapy specifically wasdoing aquatic therapy, at [facility] with mild improvement. patient has had injections in the past, and did have some improvement however feels that getting significant improvement with these. She is interested in considering surgical intervention. Of Note, she did have a R. Total knee arthroplasty about 8 years at [facility]. Patient is also complaining of Left hip pain that worsened about a year ago after she had a fall. She did have x-rays completed after this, and was told that she had a chip off of her bone. . She saw Dr. Barajas at [facility] who recommended continiues conservative management. Hip pain rated as a 4-5/10. Most of her pain on the outer aspect of the hip. No prior injections or focused PT for the hip. Past Medical History: Diagnosis Date CHF (congestive heart failure) ([facility]) Coronary artery disease Heart valve disease [...] in detail including differentia (more content not included)...[facility]06-22-2023 Note [place] Cardiology - [facility] Subjective Mabel Moser is [...] In the past she was admitted to [facility] in 2019 with fluid overload [...] not ill-appearing. HENT: H (more content not included)...[facility]06-07-2023 NotePt insists right subclavian chest port is accessed for procedure. 4CD RN at bedside to access. RN is not able to access. Li RN CVL spoke with Dr Hidalgo and pt can go to helper animal laboratory without IV access for RHC.[facility]06-07-2023 NotePatient: Mabel Moser Procedure Information Date/Time: 11/30/22 1300 Procedure: Right heart cath Location: [facility] 3 [facility] Providers: Benjie Hidalgo MD [...] products. Plan discussed with fellow. Additional Equipment RequestsUnMary Rutan Hospital05-15-2023 Note [place] [facility] - [facility] Subjective Mabel Moser is a 62 y.o. year old female patient being seen for 2 week follow up per Sofie Bernard CNP. She says since she was last seen on 10/28, Dr. Santana increased her Entresto to 97-103mg bid, metoprolol to 50mg TID, and hydralazine to 100mg TID. Says she was in [facility] ED again last Monday with [...] In the past she was admitted to [facility] in 2019 with fluid overload [...] is no distension. Pal (more content not included)...[facility]05-05-2023 NoteHeadaches today and to be evaluated in ED- worst H/A I have ever had. [facility]05-05-2023 NoteCoronary artery disease is stable Continue GDMTUnMary Rutan Hospital05-05-2023 NoteHypertension is uncontrolled with c/o worst headache ever- [facility] NoteContinue to monitor with echoUnMary Rutan Hospital05-05-2023 NoteNYHC- IV- SOB with rest and + Orthopnea, volume overloaded on exam despite Bumex 1 mg po tid and increased renal function. Noted elevated rt sided pressures with RVSP 59 and dilated RV on Echo 09/21/22- She has h/o PE in the past and currently on ASA. CR was increasing on labs noted 10/26/22- CR 1.68/BUN 45 at admit was 1.23/ 38 [facility]05-05-2023 NoteUTP CARDIOLOGY PROGRESS NOTE HPI: Mabel Moser is a 62 y.o. female here for hospital f/u Patient here for follow up [facility] ED on 10/24/2022 for fluid [...] in the morning, afternoon, and at bedtime. zzobcauxmp-wesodzyicsofu-cygq (Esgic) 50-325-40 mg capsule vxiwxmypfb-ggifnagfzkhku-ibmxbkpd 50 mg-325 mg-40 mg capsule butorphanol (Stadol) [...] Acute on chronic diastolic heart failure (CMS/HCC) [facility]- IV- SOB with rest and + Orthopnea, [...] hypertension Hypertension is uncontrolle (more content not included)...[facility]05-05-2023 NotePatient here for follow up [facility] ED on 10/24/2022 for fluid [...] light-headedness. All other systems reviewed and are negative.[facility] 10-10-2022 NoteNew patient here to re-establish care. She was last seen in [address] Hidalgo. She was discharged 10/07/2022 from [facility] for fluid overload. Had echo [...] light-headedness. All other systems reviewed and are negative.[facility] 10-10-2022 NoteCardiovascular Medicine [facility] SUBJECTIVE Chief Complaint Patient presents with Congestive Heart Failure Re-establish care HPI Mabel Moser is a 62 y.o. female here to re-establish care. She was recently discharged from [facility] for fluid overload. Her weight [...] She follows with a [facility] specialist at [facility]. Her leg swelling has [...] She has been admitted in 07/2018 to [facility] with dyspnea, fluid overload and [...] kidney disease) stage 3, GFR 30-59 ml/min ([facility]/HCC) Closed fracture of trochanter of femur [...] vitamin B12 deficiency Pulmona (more content not included)...[facility] 09-27-2022 Evaluation note* Encounter Date Diagnosis [...] G43.519) Advised the patient to follow with [facility] neurology clinic [employer] [facility] [employer] Other 03-28-2023 NoteThe [facility] [id number] Evaluation note* Encounter Date Diagnosis Assessment Notes Treatment Notes Treatment Clinical Notes Jul, Contusion of right wrist, initial encounter (ICD-10 - S60.211A) Patient placed in cock up wrist splint. Activities 2-5 lbs ADLs [employer] Other 12-13-2022 NoteThe [facility] [id number] NoteThe [facility] [id number] NoteThe [facility] [id number] Evaluation note * Encounter Date Diagnosis Assessment [...] pressure. Advised the patient to follow-up with [facility] neurology clinic I will try to reach to Dr. Santana's office about fludrocortisone I would continue same blood pressure medications. Advised the patient to follow a low-salt diet and to monitor her blood pressure at home Mar, Migraine aura, persistent, intractable (ICD-10 - G43.519) Advised the patient to follow with [facility] neurology clinic [employer] Other 08-04-2022 NoteThe [facility] [id number] NoteThe [facility] [id number] Evaluation note* Encounter Date Diagnosis Assessment Notes [...] off all diuretics metolazone, spironolactone and bumetanide. [employer] Other Discharge summary Author Jim Randhawa [facility] July 03, 2023 3:03pm Note Date/Time July 03, 2023 2: 55pm [facility] EN[facility] [address] [place] [address] Discharge Summary Signed Patient: Mabel Moser MR#: [id number] : 1960 Acct:[id number] Age/Sex: 63 / F Adm Date: 4 Loc: Room: [address] [place] [address]: Jim Randhawa DO Copies to: [...] 121/71 100 Room Air 07/03/23 12:00 07/03/23 12:07/03/23 12:07/03/23 12:07/03/23 12:07/03/23 12:00 Narrative: General: Awake alert, no acute [...] signed by Jim Randhawa DO> 07/03/23 1503 [facility] Work Phone: Evaluation noteNo assessment information available [facility] Work Phone: Evaluation noteNo InformationNort ViewRep[employer] Other Evaluation note* Diagnosis Onset Date Resolution Status Acute heart failure acute RENETTA (acute kidney injury) ac isela Anemia chronic CKD (chronic kidney disease) stage 3, GFR 30-59 ml/min chronic Hypertension chronic [facility] Work Phone: History general Narrative [...] History COVID 05/2020 Hospitalization History COVID 04/2021 [employer] Other history general Narrative - Reported* Type [...] History COVID 05/2020 Hospitalization History COVID 04/2021 [employer] Other history general Narrative - Reported* Type [...] C- DIFF 03/2021 Medical History STAP 04/2021 Medical History ELEVATED POTASSIUM 09/19/2022 Surgical [...] 04/2021 Hospitalization History ELEVATED POTASSIUM LEVEL 09/19/2022 [employer] Other Hospital Discharge instructions Additional Instructions Home health to manage: - PT/OT to eval and treat - Monitor VS routine - Dx. HTN - CHF assessments/education - Urinary assessments - Dx. CKD on RENETTA - Fall precautions - high fall riskParkview [facility] Work Phone: Summary Purpose Family [...] DATE CREATED AUTHOR AUTHOR'S ORGANIZ ATION 07/24/2021 [facility] DATE CREATED AUTHOR AUTHOR'S ORGANIZ ATION 01/17/2022 [facility] DATE CREATED AUTHOR AUTHOR'S ORGANIZ ATION 12/05/2022 [facility] DATE CREATED AUTHOR AUTHOR'S ORGANIZ ATION 02/10/2023 [facility] DATE CREATED AUTHOR AUTHOR'S ORGANIZ ATION 08/04/2023 [facility] DATE CREATED AUTHOR AUTHOR'S ORGANIZ ATION 08/23/2023 [facility] DATE CREATED AUTHOR AUTHOR'S ORGANIZ ATION 10/01/2023 [facility] DATE CREATED AUTHOR AUTHOR'S ORGANIZ ATION 10/19/2023 [facility] REASON FOR VISIT (unrecogniz ed section and [...] BE BASED ON THE PRIMARY CLINICAL RECORDS. [employer] provides no warranty or guarantee of the accuracy or completeness of information in this document.
--- NOTE | 2023-11-11 04:44 | XR_ITS ---
The [address] [address] Patient Name: JOSE CLEMENTS MRN: [id number] date: 1960 Sex: F Assigned Patient Location: ER Current Patient Location: ER Accession/Order Number: [id number] Exam Date: 11/11/2023 05:25 Report Date: 11/11/2023 05:53 At the request of: TERESSA GREGORY Procedure: XR lumbar spine 2-3V EXAMINATION: XR lumbar spine 2-3V HISTORY: Atraumatic pain COMPARISON: 03/23/2023 FINDINGS: BONES: Normal alignment with no acute fracture or spondylolisthesis. Posterior decompression bilateral transpedicular fusion L3-L5. No mechanical failure. DISC SPACES: Multilevel disc space narrowing. Spacer L4-L5 PARASPINOUS: Posterior soft tissue calcifications. IVC filter. Anterior fascial clips OTHER: Moderate amount of stool in the visualized colon XR/XR lumbar spine 2-3V IMPRESSION: Stable lumbar fusion with no mechanical failure Moderate stool in the colon Electronically authenticated by: CARLOS ALCALA Date: 11/11/2023 05:53
--- NOTE | 2023-11-11 04:44 | XR_ITS ---
The [address] [address] Patient Name: JOSE CLEMENTS MRN: [id number] date: 1960 Sex: F Assigned Patient Location: ER Current Patient Location: Accession/Order Number: [id number] Exam Date: 11/11/2023 05:25 Report Date: 11/11/2023 05:54 At the request of: TERESSA GREGORY Procedure: XR cervical spine 2-3V EXAMINATION: XR cervical spine 2-3V HISTORY: Atraumatic pain, dense fracture 6 weeks ago COMPARISON: CT cervical spine 09/29/2023 FINDINGS: BONES: 5 mm lateral listhesis of the right arch of C1 in relation to the body of C2 as seen on the frontal view. Slight grade 1 anterolisthesis of C4 on 5 and C5 on C6. Multilevel mild-moderate degenerative facet arthropathy. DISC SPACES: C6-C7 and C7-T1 are obscured by shoulder structures. PARASPINOUS: Negative. No paraspinous abnormality is seen. OTHER: Negative. XR/XR cervical spine 2-3V IMPRESSION: 1. There is 5 mm right lateral listhesis of the right arch of C1 in relation to the body of C2. Given the history of recent T2 dens fracture this may represent instability and lateral migration rather than just degenerative changes and slight rotation. 2. Multilevel degenerative changes. Electronically authenticated by: BUNNY ZEPEDA Date: 11/11/2023 05:54
--- NOTE | 2023-11-11 05:00 | ED_ITS ---
HPI HPI - Back Pain/Injury General Chief Complaint: Back Pain/Injury Stated Complaint: NECK PAIN Time Seen by Provider: 11/11/23 04:36 Source: patient Mode of arrival: ambulance Limitations: no limitations History of Present Illness HPI Narrative: 63-year-old female presents for lower back and neck pain. She was sleeping in a reclining chair when she developed this pain. There was no injury such as a fall. At the end of August she states she fell and has a neck fracture. EHR indicates that she had a nondisplaced dens fracture which did not require surgery. She also had remote back surgery, about 8 years ago. She has a fentanyl patch and was given IV fentanyl by the paramedics. This started within the last hour. Related Data Home Medications ?Medication ?Instructions ?Recorded ?Confirmed alprazolam 0.5 mg tablet 0.5 mg PO BID PRN anxiety 12/08/22 11/11/23 amitriptyline 150 mg tablet 300 mg PO BEDTIME 12/08/22 11/11/23 calcium acetate(phosphat bind) 667 667 mg PO BID 12/08/22 11/11/23 mg capsule levothyroxine 100 mcg tablet 100 mcg PO DAILY 12/08/22 11/11/23 linaclotide 290 mcg capsule 290 mcg PO DAILY 12/08/22 11/11/23 (Linzess) oxycodone-acetaminophen 5 mg-325 2 tab PO Q6H PRN pain 12/08/22 11/11/23 mg tablet primidone 50 mg tablet 150 mg PO BEDTIME 12/08/22 11/11/23 tizanidine 4 mg tablet (Zanaflex) 4 mg PO Q6H PRN muscle spasticity 12/08/22 11/11/23 aripiprazole 2 mg tablet (Abilify) 2 mg PO DAILY 01/23/23 11/11/23 bumetanide 1 mg tablet 3 mg PO Q12H PRN SWELLING 01/23/23 11/11/23 spironolactone 50 mg tablet 50 mg PO DAILY PRN swelling 01/24/23 10/23/23 (Aldactone) butorphanol 10 mg/mL nasal spray 1 spray intranasal .QD PRN pain 02/03/23 11/11/23 apixaban 2.5 mg tablet (Eliquis) 2.5 mg PO BID 07/20/23 11/11/23 azelastine 0.05 % eye drops 1 drp ophthalmic (eye) DAILY 09/29/23 11/11/23 desvenlafaxine succinate 50 mg 50 mg PO DAILY 09/29/23 11/11/23 tablet,extended release 24 hr diclofenac sodium 1 % topical gel 2 g topical .QD PRN 09/29/23 11/11/23 PAIN/INFLAMMATION doxepin 10 mg capsule 10 mg PO BID 09/29/23 11/11/23 escitalopram oxalate 20 mg tablet 20 mg PO DAILY 09/29/23 11/11/23 pantoprazole 40 mg tablet,delayed 40 mg PO DAILY 09/29/23 11/11/23 release fentanyl 100 mcg/hr transdermal 1 patch transdermal Q72H 10/12/23 11/11/23 patch liothyronine 25 mcg tablet 25 mcg PO .qd 10/23/23 11/11/23 pramipexole 1 mg tablet 1 mg PO .qd 10/23/23 11/11/23 spironolactone 100 mg tablet 100 mg PO BID 10/23/23 11/11/23 sacubitril 24 mg-valsartan 26 mg 4 tab PO DAILY 11/11/23 11/11/23 tablet (Entresto) Allergies Allergy/AdvReac Type Severity Reaction Status Date / Time povidone-iodine Allergy Intermediate Verified 11/11/23 04:44 [From Betadine] amoxicillin [From Augmentin] Allergy Mild Vomiting Verified 11/11/23 04:44 clavulanic acid Allergy Mild Vomiting Verified 11/11/23 04:44 [From Augmentin] Sulfa (Sulfonamide Allergy Mild Vomiting Verified 11/11/23 04:44 Antibiotics) ciprofloxacin [From Cipro] Allergy Unknown Verified 11/11/23 04:44 Opioid HPI Opioid Management Most Recent Opioid Data: Last Pain Scale 8 11/11/23 04:48 Last ORT Total Score 0 10/23/23 12:31 Last ORT Risk Category Low Risk 10/23/23 12:31 Review of Systems ROS Narrative A ten point review of systems is negative except as noted above. [facility] Medical History (Updated 11/11/23 @ 06:58 by Chapo Venegas MD) Chronic kidney disease ?N18.9 - Chronic kidney disease, unspecified (ICD-10) Acute kidney injury ?N17.9 - Acute kidney failure, unspecified (ICD-10) Edema of lower leg due to peripheral venous insufficiency ?I87.2 - Venous insufficiency (chronic) (peripheral) (ICD-10) ?R60.0 - Localized edema (ICD-10) Depression ?F32.A - Depression, unspecified (ICD-10) Gastroenteritis ?K52.9 - Noninfective gastroenteritis and colitis, unspecified (ICD-10) Migraine without aura and without status migrainosus, not intractable ?G43.009 - Migraine without aura, not intractable, without status migrainosus (ICD-10) Chronic heart failure with preserved ejection fraction (HFpEF) ?I50.32 - Chronic diastolic (congestive) heart failure (ICD-10) Chest pain ?R07.9 - Chest pain, unspecified (ICD-10) Dyspnea ?R06.00 - Dyspnea, unspecified (ICD-10) Fluid overload ?E87.70 - Fluid overload, unspecified (ICD-10) Osteoarthritis ?M19.90 - Unspecified osteoarthritis, unspecified site (ICD-10) Anemia ?D64.9 - Anemia, unspecified (ICD-10) Anxiety ?F41.9 - Anxiety disorder, unspecified (ICD-10) Stroke ?I63.9 - Cerebral infarction, unspecified (ICD-10) Acid reflux ?K21.9 - Gastro-esophageal reflux disease without esophagitis (ICD-10) Hypothyroid ?E03.9 - Hypothyroidism, unspecified (ICD-10) Kidney failure ?N19 - Unspecified kidney failure (ICD-10) COPD (chronic obstructive pulmonary disease) ?J44.9 - Chronic obstructive pulmonary disease, unspecified (ICD-10) Asthma ?J45.909 - Unspecified asthma, uncomplicated (ICD-10) CHF (congestive heart failure) ?I50.9 - Heart failure, unspecified (ICD-10) Irregular heart beat ?I49.9 - Cardiac arrhythmia, unspecified (ICD-10) HTN (hypertension) ?I10 - Essential (primary) hypertension (ICD-10) Heart attack ?I21.9 - Acute myocardial infarction, unspecified (ICD-10) Lumbar spondylosis ?M47.816 - Spondylosis without myelopathy or radiculopathy, lumbar region (ICD-10) Surgical History H/O hysterectomy with oophorectomy H/O gastric bypass ?Z98.84 - Bariatric surgery status (ICD-10) History of hernia repair ?Z98.890 - Other specified postprocedural states (ICD-10) ?Z87.19 - Personal history of other diseases of the digestive system (ICD-10) History of rotator cuff surgery ?Z98.890 - Other specified postprocedural states (ICD-10) History of right knee joint replacement ?Z96.651 - Presence of right artificial knee joint (ICD-10) History of appendectomy ?Z90.49 - Acquired absence of other specified parts of digestive tract (ICD- 10) Hx of cholecystectomy ?Z90.49 - Acquired absence of other specified parts of digestive tract (ICD- 10) Family History Father Family history of CHF (congestive heart failure) Family history of diabetes mellitus Family history of hypertension Family history of myocardial infarction Family history of stroke Mother Family history of CHF (congestive heart failure) Family history of COPD (chronic obstructive pulmonary disease) Family history of diabetes mellitus Family history of hypertension Family history of myocardial infarction Family history of stroke Social History Within the past year, how often did you have a drink containing alcohol: never Within the past year, how often did you have six or more drinks on one occasion: never Score interpretation: A score less than 3 is consistent with normal alcohol consumption. 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 Highest level of school completed/degree received: some college, no degree Are you now , , , , never or living with a partner: In a typical week, how many times do you talk on the telephone with family, friends, or neighbors: 3 or more times per week How often do you get together with friends or relatives: twice per week How often do you attend latter day or mu-ism services: 4 or more times per year Do you belong to any clubs or organizations such as latter day groups unions, fraternal or athletic groups, or school groups: no Total score: 3 Score interpretation: A score of greater than or equal to 2 indicates the lowest level of social isolation. Little interest or pleasure in doing things: not at all Feeling down, depressed, or hopeless: several days Feel stressed/tense/nervous/anxious/difficulty sleeping: to some extent Life stressors: recent of family or friend Do you think of yourself as: straight/heterosexual Gender Identity: female Exam Narrative Exam Narrative: Nurses note and vital signs reviewed and patient is not hypoxic. General: The patient appears uncomfortable Skin: Warm, dry, no pallor noted. There is no rash noted. Head: Normocephalic, atraumatic Eye: Normal conjunctiva, no drainage Ears, Nose, Mouth, and Throat: oral mucosa is moist. Nares patent. Cardiovascular: Regular Rate and Rhythm Respiratory: Patient is in no distress, no accessory muscle use, lungs are clear to auscultation, no wheezing, rales or rhonchi Back: Old healed surgical scar present in her lower back. Neck is no obvious deformity or swelling or bruising. GI: Soft and nontender Musculoskeletal: The patient has no evidence of calf tenderness, no pitting edema, symmetrical pulses noted bilaterally Neurological: A&O, normal speech, moves all 4 extremities well. Psychiatric: Cooperative Constitutional Vital Signs, click to edit/add: Last Vital Signs Temp 97.3 F L 11/11/23 04:35 Pulse 75 11/11/23 04:35 Resp 18 11/11/23 04:35 BP 108/66 11/11/23 06:30 Pulse Ox 100 11/11/23 06:00 O2 Del Method Room Air 11/11/23 04:35 Course Vital Signs Vital signs: Vital Signs Temperature 97.3 F L 11/11/23 04:35 Pulse Rate 75 11/11/23 04:35 Respiratory Rate 18 11/11/23 04:35 Blood Pressure 84/48 L 11/11/23 04:35 Pulse Oximetry 98 11/11/23 04:35 Oxygen Delivery Method Room Air 11/11/23 04:35 Temperature 97.3 F L 11/11/23 04:35 Pulse Rate 75 11/11/23 04:35 Respiratory Rate 18 11/11/23 04:35 Blood Pressure 108/66 11/11/23 06:30 Pulse Oximetry 100 11/11/23 06:00 Oxygen Delivery Method Room Air 11/11/23 04:35 MDM - Back Pain/Injury MDM Narrative Medical decision making narrative: Lumbar films show no acute findings. Cervical spine x-ray shows possible shift of the lateral masses of C1 and C2. CT C-spine was ordered which shows an ununited dens fracture. Clarification is requested from the radiologist regarding the displacement of the lateral masses of C1 and C2. Differential Diagnosis Differential diagnosis: Likely other (Neck pain, C-spine fracture, ligamentous injury) Imaging Data CT C-spine: Radiologist's impression: ITS Impressions Cervical Spine X-Ray 11/11/23 04:44 IMPRESSION: 1. There is 5 mm right lateral listhesis of the right arch of C1 in relation to the body of C2. Given the history of recent T2 dens fracture this may represent instability and lateral migration rather than just degenerative changes and slight rotation. 2. Multilevel degenerative changes. Electronically authenticated by: BUNNY ZEPEDA Date: 11/11/2023 05:54 Lumbar Spine X-Ray 11/11/23 04:44 IMPRESSION: Stable lumbar fusion with no mechanical failure Moderate stool in the colon Electronically authenticated by: CARLOS ALCALA Date: 11/11/2023 05:[address] 11/11/23 06:01 IMPRESSION: 1. Ununited type II dens fracture with sclerosis noted along the fracture margins. 2. No new cervical spine fracture identified. 3. Multilevel degenerative disc disease of the cervical spine that is most pronounced at C6-7 where it is moderate in severity. Again noted is minimal anterolisthesis of C5 on C6. There is also multilevel and bilateral uncovertebral and facet joint osteoarthritis. 4. Carotid artery atherosclerosis. Electronically authenticated by: MIGEL CUADRA Date: 11/11/2023 06:41 Discharge Plan Discharge Patient Disposition: Still a Patient
[2023-11-11] MEDS: ORPHENADRINE 60 MG/ 2 ML VIAL IV (05:05)
--- NOTE | 2023-11-11 06:01 | CT_ITS ---
The [address] [address] Patient Name: JOSE CLEMENTS MRN: [id number] date: 1960 Sex: F Assigned Patient Location: ER Current Patient Location: ER Accession/Order Number: [id number] Exam Date: 11/11/2023 06:10 Report Date: 11/11/2023 06:41 At the request of: TERESSA GREGORY Procedure: CT cervical spine wo con EXAM: CT cervical spine can morning lasting several times type HISTORY: Atraumatic pain, recent dens fracture . Patient complains of neck pain radiating down lower back. History of fracture at the end of August. COMPARISON: Comparison made to CT cervical spine dated 09/29/2023. TECHNIQUE: Contiguous transaxial images obtained through the cervical spine without contrast. Coronal and sagittal reformations performed. FINDINGS: There is an ununited type II dens fracture with sclerosis noted along the fracture margins. No new cervical spine fractures are identified. There is persistent mild superior endplate depression of T1, T2, and T3. There is multilevel degenerative disc disease of the cervical spine that is most pronounced at C6-7 where it is moderate in severity. There is minimal anterolisthesis of C5 on C6. There is atlantodental articulation osteoarthritis. There is osteoarthritis at the articulations between the lateral masses of C1 and C2. There is uncovertebral joint osteoarthritis at C3-4 and C6-7. There is multilevel and bilateral facet joint osteoarthritis with right C3-4 facet ankylosis. There is mild bilateral carotid artery atherosclerosis. CT/CT cervical spine wo con IMPRESSION: 1. Ununited type II dens fracture with sclerosis noted along the fracture margins. 2. No new cervical spine fracture identified. 3. Multilevel degenerative disc disease of the cervical spine that is most pronounced at C6-7 where it is moderate in severity. Again noted is minimal anterolisthesis of C5 on C6. There is also multilevel and bilateral uncovertebral and facet joint osteoarthritis. 4. Carotid artery atherosclerosis. Electronically authenticated by: MIGEL CUADRA Date: 11/11/2023 06:41
[2023-11-11] MEDS: OXYCODONE HCL/ACETAMINOPHEN 5MG/325MG 2 TAB PO (08:11)
== END 2023-11-11 08:40 | disposition home or self-care (01) ==
PROVIDERS: Emergency Provider Emergency Medicine Emergency Medical Services; PCP Family Medicine
DX: S16.1XXA Strain of muscle, fascia and tendon at neck level, initial encounter (principal); S39.012A Strain of muscle, fascia and tendon of lower back, initial encounter; N18.9 Chronic kidney disease, unspecified; F32.A Depression, unspecified; I50.32 Chronic diastolic (congestive) heart failure; M19.90 Unspecified osteoarthritis, unspecified site; F41.9 Anxiety disorder, unspecified; Z86.73 Personal history of transient ischemic attack (TIA), and cerebral infarction without residual deficits; K21.9 Gastro-esophageal reflux disease without esophagitis; E03.9 Hypothyroidism, unspecified; J44.9 Chronic obstructive pulmonary disease, unspecified; I13.0 Hypertensive heart and chronic kidney disease with heart failure and stage 1 through stage 4 chronic kidney disease, or unspecified chronic kidney disease; M47.816 Spondylosis without myelopathy or radiculopathy, lumbar region; I25.2 Old myocardial infarction; Z90.710 Acquired absence of both cervix and uterus; Z98.84 Bariatric surgery status; Z79.899 Other long term (current) drug therapy; Z79.890 Hormone replacement therapy; Z79.01 Long term (current) use of anticoagulants; Z90.721 Acquired absence of ovaries, unilateral; Z90.49 Acquired absence of other specified parts of digestive tract; Z96.651 Presence of right artificial knee joint; Z98.890 Other specified postprocedural states; X50.9XXA Other and unspecified overexertion or strenuous movements or postures, initial encounter
CPT/HCPCS: 72040; 72100; 72125; 96374; 99285

== ENCOUNTER 2023-11-23 07:27 | Outpatient (RCR) | payer MEDICARE, MEDICAID, SELFPAY ==
[2023-11-03 09:50] VITALS: BP 114/61; PULSE 73; TEMP 36.6; O2SAT 98
[2023-11-03 10:10] LABS: Basophils Percent Auto 0.2 % (0.2-2.0); Eosinophils Absolute Auto 0.1 10^3/uL (0.0-0.7); Eosinophils Percent Auto 0.7 % (0.9-7.0); Hematocrit 27.9 % (36.0-48.0); Hemoglobin 8.6 g/dL (12.0-16.0); Immature Granulocytes Abs Auto 0.07 10^3/uL (0.00-0.03); Immature Granulocytes Pct Auto 0.5 % (0.0-0.5); Lymphocytes Absolute Auto 0.9 10^3/uL (1.2-3.8); Lymphocytes Percent Auto 7.2 % (20.5-60.0); Mean Corpuscular HGB Conc 30.8 g/dL (29.9-35.2); Mean Corpuscular Hemoglobin 30.9 pg (26.7-34.0); Mean Corpuscular Volume 100.4 fL (81.0-99.0); Mean Platelet Volume 9.1 fL (9.5-13.5); Monocytes Absolute Auto 0.8 10^3/uL (0.3-0.8); Monocytes Percent Auto 6.5 % (1.7-12.0); Neutrophils Absolute Auto 10.8 10^3/uL (1.4-6.5); Neutrophils Percent Auto 84.9 % (43.0-75.0); Platelet Count 291 10^3/uL (150-450); Red Blood Count 2.78 10^6/uL (4.20-5.40); Red Cell Distribution Width 14.6 % (11.0-15.0); White Blood Count 12.7 10^3/uL (4.0-11.0)
[2023-11-03 10:31] LABS: Alanine Aminotransferase 36 U/L (14-59); Albumin Globulin Ratio 0.9; Albumin Level 3.3 g/dL (3.4-5.0); Alkaline Phosphatase 239 U/L (46-116); Anion Gap 17.2; Aspartate Amino Transferase 61 U/L (15-37); BUN Creatinine Ratio 41.6; Bilirubin Total 0.4 mg/dL (0.2-1.0); Calcium 8.8 mg/dL (8.5-10.1); Carbon Dioxide 22.4 mmol/L (21.0-32.0); Chloride 97 mmol/L (98-107); Estimated GFR (African America 24 (>=60); Estimated GFR (Non-African Ame 20 (>=60); Globulin 3.5 g/dL; Glucose 88 mg/dL (74-106); Potassium 4.6 mmol/L (3.5-5.1); Sodium 132 mmol/L (136-145); Total Protein 6.8 g/dL (6.4-8.2)
--- NOTE | 2023-11-03 11:08 | PC.NURSE ---
0950: Pt. to [facility] amb. using walker. Seated in recliner. VSS. Using sterile technique, right ant. chest port accessed using 20 gauge Stovall needle. Flushes easily and able to aspirate blood easily. Blood obtained for ordered labs. Port de-accessed, trace bleeding to site. Covered with cotton ball. Pt. tolerated all with min. c/o discomfort. 1002: Pt d/c'd amb. to home.
[2023-11-09 09:45] VITALS: BP 124/85; PULSE 67; TEMP 36.6; O2SAT 93
[2023-11-09 11:08] LABS: Basophils Percent Auto 0.2 % (0.2-2.0); Eosinophils Absolute Auto 0.1 10^3/uL (0.0-0.7); Eosinophils Percent Auto 1.1 % (0.9-7.0); Hematocrit 29.1 % (36.0-48.0); Hemoglobin 8.6 g/dL (12.0-16.0); Immature Granulocytes Abs Auto 0.04 10^3/uL (0.00-0.03); Immature Granulocytes Pct Auto 0.5 % (0.0-0.5); Lymphocytes Percent Auto 12.2 % (20.5-60.0); Mean Corpuscular HGB Conc 29.6 g/dL (29.9-35.2); Mean Corpuscular Volume 101.4 fL (81.0-99.0); Mean Platelet Volume 9.2 fL (9.5-13.5); Monocytes Absolute Auto 0.7 10^3/uL (0.3-0.8); Monocytes Percent Auto 8.9 % (1.7-12.0); Neutrophils Absolute Auto 6.4 10^3/uL (1.4-6.5); Neutrophils Percent Auto 77.1 % (43.0-75.0); Platelet Count 303 10^3/uL (150-450); Red Blood Count 2.87 10^6/uL (4.20-5.40); Red Cell Distribution Width 14.3 % (11.0-15.0); White Blood Count 8.3 10^3/uL (4.0-11.0)
[2023-11-09 11:25] LABS: Alanine Aminotransferase 33 U/L (14-59); Albumin Globulin Ratio 0.9; Albumin Level 3.2 g/dL (3.4-5.0); Alkaline Phosphatase 261 U/L (46-116); Anion Gap 12.9; Aspartate Amino Transferase 33 U/L (15-37); BUN Creatinine Ratio 39.3; Bilirubin Total 0.3 mg/dL (0.2-1.0); Calcium 8.7 mg/dL (8.5-10.1); Carbon Dioxide 29.9 mmol/L (21.0-32.0); Chloride 98 mmol/L (98-107); Estimated GFR (African America 36 (>=60); Estimated GFR (Non-African Ame 30 (>=60); Globulin 3.6 g/dL; Glucose 91 mg/dL (74-106); Potassium 4.8 mmol/L (3.5-5.1); Sodium 136 mmol/L (136-145); Total Protein 6.8 g/dL (6.4-8.2)
--- NOTE | 2023-11-09 11:40 | PC.NURSE ---
0945: Pt. to [facility] amb. using walker. Seated in recliner. VSS. Using sterile technique, right ant. chest port accessed without difficulty. Flushes easily. Able to aspirate blood easily, labs obtained. Flushed with saline and Heparin. Port de-accessed. No bleeding to site. Pt. tolerated without c/o. 1000: Pt. d/c'd amb. to home.
[2023-11-16 14:40] VITALS: BP 108/68; PULSE 78; TEMP 37.1; O2SAT 100
--- NOTE | 2023-11-16 15:17 | PC.NURSE ---
1440: Pt. to [facility] amb. for blood draw. Seated in recliner. VSS. Using sterile technique, right ant. chest port accessed per Abner RN without difficulty. Flushes easily with good blood return. Blood obtained for ordered labs. Port flushed with saline and heparin flush. Port de-accessed perKianna Levine RN. No bleeding to site. Covered prophylactically with bandaid. Pt. tolerated without c/o. 1455: Pt. d/c'd amb. to home.
[2023-11-16 15:18] LABS: Basophils Percent Auto 0.4 % (0.2-2.0); Eosinophils Absolute Auto 0.1 10^3/uL (0.0-0.7); Hematocrit 27.4 % (36.0-48.0); Hemoglobin 8.4 g/dL (12.0-16.0); Immature Granulocytes Abs Auto 0.04 10^3/uL (0.00-0.03); Immature Granulocytes Pct Auto 0.5 % (0.0-0.5); Lymphocytes Absolute Auto 0.9 10^3/uL (1.2-3.8); Lymphocytes Percent Auto 11.1 % (20.5-60.0); Mean Corpuscular HGB Conc 30.7 g/dL (29.9-35.2); Mean Corpuscular Hemoglobin 30.9 pg (26.7-34.0); Mean Corpuscular Volume 100.7 fL (81.0-99.0); Mean Platelet Volume 9.4 fL (9.5-13.5); Monocytes Absolute Auto 0.5 10^3/uL (0.3-0.8); Neutrophils Absolute Auto 6.6 10^3/uL (1.4-6.5); Platelet Count 265 10^3/uL (150-450); Red Blood Count 2.72 10^6/uL (4.20-5.40); Red Cell Distribution Width 13.6 % (11.0-15.0); White Blood Count 8.1 10^3/uL (4.0-11.0)
[2023-11-16 15:46] LABS: Alanine Aminotransferase 25 U/L (14-59); Albumin Globulin Ratio 0.9; Albumin Level 3.1 g/dL (3.4-5.0); Alkaline Phosphatase 286 U/L (46-116); Anion Gap 14.8; Aspartate Amino Transferase 33 U/L (15-37); BUN Creatinine Ratio 37.1; Bilirubin Total 0.3 mg/dL (0.2-1.0); Calcium 8.9 mg/dL (8.5-10.1); Carbon Dioxide 26.8 mmol/L (21.0-32.0); Chloride 98 mmol/L (98-107); Estimated GFR (African America 31 (>=60); Estimated GFR (Non-African Ame 26 (>=60); Globulin 3.3 g/dL; Glucose 83 mg/dL (74-106); Potassium 4.6 mmol/L (3.5-5.1); Sodium 135 mmol/L (136-145); Total Protein 6.4 g/dL (6.4-8.2)
== END 2023-11-24 23:59 | disposition home or self-care (01) ==
LOC: INF 07:27
PROVIDERS: PCP Family Medicine; Visit Provider Family Medicine
DX: I10 Essential (primary) hypertension (principal); D64.9 Anemia, unspecified; E87.1 Hypo-osmolality and hyponatremia
CPT/HCPCS: 36415; 36591; 80053; 83930; 85025

== ENCOUNTER 2023-12-07 10:30 | Outpatient (OUT) | payer MEDICARE, MEDICAID, SELFPAY ==
--- NOTE | 2023-12-07 10:58 | PM.CN ---
Consult Note: HPI Data of Consult Patient: known to practice within the last 3 years Requesting Physician: Louann Jackson NP Primary Care Provider: Yuri Godinez MD Consult Narrative Reason for consult: f/u Narrative: Mabel Moser a pleasant 63 year old female presents for evaluation and management of chronic pain. Today pain 7-8/10 in right hip, groin, buttocks, and low back. Patient reports >50% improvement from recent caudal ROBSON with Dr David greater than 3 months and would like to repeat injection. Patient continues to have numbness tingling to BLE. Patient currently dealing with kidney issues and severe bilateral leg edema, following with PCP and nephrology. Patient is being managed with medications for pain by PCP. Patient has been cleared by Dr Vann for cervical fx. cc:: CC: Louann Jackson NP Review of Systems ROS Status of ROS 10 or more systems reviewed and unremarkable except as noted in history and below Musculoskeletal Reports: back pain PFSH PFS Medical History (Updated 11/11/23 @ 06:58 by Chapo Venegas MD) Chronic kidney disease ?N18.9 - Chronic kidney disease, unspecified (ICD-10) Acute kidney injury ?N17.9 - Acute kidney failure, unspecified (ICD-10) Edema of lower leg due to peripheral venous insufficiency ?I87.2 - Venous insufficiency (chronic) (peripheral) (ICD-10) ?R60.0 - Localized edema (ICD-10) Depression ?F32.A - Depression, unspecified (ICD-10) Gastroenteritis ?K52.9 - Noninfective gastroenteritis and colitis, unspecified (ICD-10) Migraine without aura and without status migrainosus, not intractable ?G43.009 - Migraine without aura, not intractable, without status migrainosus (ICD-10) Chronic heart failure with preserved ejection fraction (HFpEF) ?I50.32 - Chronic diastolic (congestive) heart failure (ICD-10) Chest pain ?R07.9 - Chest pain, unspecified (ICD-10) Dyspnea ?R06.00 - Dyspnea, unspecified (ICD-10) Fluid overload ?E87.70 - Fluid overload, unspecified (ICD-10) Osteoarthritis ?M19.90 - Unspecified osteoarthritis, unspecified site (ICD-10) Anemia ?D64.9 - Anemia, unspecified (ICD-10) Anxiety ?F41.9 - Anxiety disorder, unspecified (ICD-10) Stroke ?I63.9 - Cerebral infarction, unspecified (ICD-10) Acid reflux ?K21.9 - Gastro-esophageal reflux disease without esophagitis (ICD-10) Hypothyroid ?E03.9 - Hypothyroidism, unspecified (ICD-10) Kidney failure ?N19 - Unspecified kidney failure (ICD-10) COPD (chronic obstructive pulmonary disease) ?J44.9 - Chronic obstructive pulmonary disease, unspecified (ICD-10) Asthma ?J45.909 - Unspecified asthma, uncomplicated (ICD-10) CHF (congestive heart failure) ?I50.9 - Heart failure, unspecified (ICD-10) Irregular heart beat ?I49.9 - Cardiac arrhythmia, unspecified (ICD-10) HTN (hypertension) ?I10 - Essential (primary) hypertension (ICD-10) Heart attack ?I21.9 - Acute myocardial infarction, unspecified (ICD-10) Lumbar spondylosis ?M47.816 - Spondylosis without myelopathy or radiculopathy, lumbar region (ICD-10) Surgical History H/O hysterectomy with oophorectomy H/O gastric bypass ?Z98.84 - Bariatric surgery status (ICD-10) History of hernia repair ?Z98.890 - Other specified postprocedural states (ICD-10) ?Z87.19 - Personal history of other diseases of the digestive system (ICD-10) History of rotator cuff surgery ?Z98.890 - Other specified postprocedural states (ICD-10) History of right knee joint replacement ?Z96.651 - Presence of right artificial knee joint (ICD-10) History of appendectomy ?Z90.49 - Acquired absence of other specified parts of digestive tract (ICD-10) Hx of cholecystectomy ?Z90.49 - Acquired absence of other specified parts of digestive tract (ICD-10) Family History Father Family history of CHF (congestive heart failure) Family history of diabetes mellitus Family history of hypertension Family history of myocardial infarction Family history of stroke Mother Family history of CHF (congestive heart failure) Family history of COPD (chronic obstructive pulmonary disease) Family history of diabetes mellitus Family history of hypertension Family history of myocardial infarction Family history of stroke Social History Within the past year, how often did you have a drink containing alcohol: never Within the past year, how often did you have six or more drinks on one occasion: never Score interpretation: A score less than 3 is consistent with normal alcohol consumption. 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 Highest level of school completed/degree received: some college, no degree Are you now , , , , never or living with a partner: In a typical week, how many times do you talk on the telephone with family, friends, or neighbors: 3 or more times per week How often do you get together with friends or relatives: twice per week How often do you attend buddhism or mandaeism services: 4 or more times per year Do you belong to any clubs or organizations such as buddhism groups unions, [employer] or athletic groups, or school groups: no Total score: 3 Score interpretation: A score of greater than or equal to 2 indicates the lowest level of social isolation. Little interest or pleasure in doing things: not at all Feeling down, depressed, or hopeless: several days Feel stressed/tense/nervous/anxious/difficulty sleeping: to some extent Life stressors: recent of family or friend Do you think of yourself as: straight/heterosexual Gender Identity: female Meds Home Medications and Allergies Home Medications ?Medication ?Instructions ?Recorded ?Confirmed ?Type alprazolam 0.5 mg tablet 0.5 mg PO BID PRN anxiety 12/08/22 11/11/23 History amitriptyline 150 mg tablet 300 mg PO BEDTIME 12/08/22 11/11/23 History calcium acetate(phosphat bind) 667 667 mg PO BID 12/08/22 11/11/23 History mg capsule levothyroxine 100 mcg tablet 100 mcg PO DAILY 12/08/22 11/11/23 History linaclotide 290 mcg capsule 290 mcg PO DAILY 12/08/22 11/11/23 History (Linzess) oxycodone-acetaminophen 5 mg-325 2 tab PO Q6H PRN pain 12/08/22 11/11/23 History mg tablet primidone 50 mg tablet 150 mg PO BEDTIME 12/08/22 11/11/23 History tizanidine 4 mg tablet (Zanaflex) 4 mg PO Q6H PRN muscle spasticity 12/08/22 11/11/23 History aripiprazole 2 mg tablet (Abilify) 2 mg PO DAILY 01/23/23 11/11/23 History bumetanide 1 mg tablet 3 mg PO Q12H PRN SWELLING 01/23/23 11/11/23 History spironolactone 50 mg tablet 50 mg PO DAILY PRN swelling 01/24/23 10/23/23 History (Aldactone) butorphanol 10 mg/mL nasal spray 1 spray intranasal .QD PRN pain 02/03/23 11/11/23 History apixaban 2.5 mg tablet (Eliquis) 2.5 mg PO BID 07/20/23 11/11/23 History azelastine 0.05 % eye drops 1 drp ophthalmic (eye) DAILY 09/29/23 11/11/23 History desvenlafaxine succinate 50 mg 50 mg PO DAILY 09/29/23 11/11/23 History tablet,extended release 24 hr diclofenac sodium 1 % topical gel 2 g topical .QD PRN 09/29/23 11/11/23 History PAIN/INFLAMMATION doxepin 10 mg capsule 10 mg PO BID 09/29/23 11/11/23 History escitalopram oxalate 20 mg tablet 20 mg PO DAILY 09/29/23 11/11/23 History pantoprazole 40 mg tablet,delayed 40 mg PO DAILY 09/29/23 11/11/23 History release fentanyl 100 mcg/hr transdermal 1 patch transdermal Q72H 10/12/23 11/11/23 History patch liothyronine 25 mcg tablet 25 mcg PO .qd 10/23/23 11/11/23 History pramipexole 1 mg tablet 1 mg PO .qd 10/23/23 11/11/23 History spironolactone 100 mg tablet 100 mg PO BID 10/23/23 11/11/23 History sacubitril 24 mg-valsartan 26 mg 4 tab PO DAILY 11/11/23 11/11/23 History tablet (Entresto) Allergies Allergy/AdvReac Type Severity Reaction Status Date / Time povidone-iodine Allergy Intermediate Verified 11/11/23 04:44 [From Betadine] amoxicillin [From Augmentin] Allergy Mild Vomiting Verified 11/11/23 04:44 clavulanic acid Allergy Mild Vomiting Verified 11/11/23 04:44 [From Augmentin] Sulfa (Sulfonamide Allergy Mild Vomiting Verified 11/11/23 04:44 Antibiotics) ciprofloxacin [From Cipro] Allergy Unknown Verified 11/11/23 04:44 Exam Constitutional Documenting provider has reviewed patient's vital signs: yes Common normals: no apparent distress, oriented x3, healthy appearing, alert and well nourished General appearance: cooperative HENMT Common normals: normocephalic, hearing grossly normal bilaterally and moist oral mucous membranes Head and scalp: normocephalic Eye Common normals: PERRL Pupil: PERRL Neck & C-Spine Common normals: full ROM General: normal visual inspection Other: c-collar unable to assess Chest Common normals: inspection of chest normal Respiratory Common normals: normal respiratory effort, no retractions and no use of accessory muscles Back & Pelvis Lumbar spine/lower back: lumbar ROM normal, ROM limited and straight leg raise positive left Other: decreased sensation left L5/S1 positive left straight leg raise strength 4/5 in BLE Extremity General: edema Neuro Common normals: oriented x3, CN's II-XII intact bilaterally, moves all extremities, no focal motor deficits, no sensory deficits noted and deep tendon reflexes 2+ bilaterally Sensorium/orientation: alert Gait (neuro): assistive device used walker Motor exam: strength 5/5 throughout and no movement abnormalities noted Psych Common normals: mental status grossly normal, thought process normal, cooperative, affect normal, speech normal and activity/motor behavior normal Speech: normal speech Thought process: normal thought process Results Additional Findings Additional findings: If on a controlled substance or opioids, I have checked an [place] report on this patient and there are no aberrancies noted in the prescribing history.??If on a controlled substance or opioid a drug screen was completed and reviewed within the last year, and if there has not been a drug screen completed we ordered one today to monitor higher risk, state monitored pain medication use. As part of providing excellent, safe, comprehensive care, the following was completed at our patient's visit: 1. A medication reconciliation and review to ensure accurate knowledge of current/active medications, including asking our patients to inform us about any bnpt-vyx-gnppatc medications or herbal remedies/nutritional supplements/alternative remedies. 2. A review to specifically ensure our patients have had annual screening for screening for depression, screening for tobacco use, and screening for unhealthy alcohol use. For concerning screenings had a discussion with the patient, provided patient education, and recommended follow-up with primary care provider when appropriate. If patient noted with a risk of falling, they received education on strength, gait, and balance training to prevent future risk of falling. Assessment and Plan Assessment and Plan (1) Lumbar radiculopathy: (2) Lumbar stenosis with neurogenic claudication: Plan Caudal ROBSON under fluoroscopy with Dr David, previous caudal ROBSON provided >50% improvement greater than 3 months continue f/u neprhology, PCP f/u 2 weeks after ROBSON
== END 2023-12-07 10:31 | disposition home or self-care (01) ==
LOC: PM 10:30
PROVIDERS: PCP Family Medicine; Visit Provider Nurse Practitioner
DX: M54.16 Radiculopathy, lumbar region (principal); M48.062 Spinal stenosis, lumbar region with neurogenic claudication
CPT/HCPCS: G0463

== ENCOUNTER 2023-12-12 07:54 | Day surgery (SDC) | payer MEDICARE, MEDICAID, SELFPAY ==
[2023-12-12 08:16] VITALS: BP 101/70; PULSE 103; TEMP 36.3; O2SAT 99
[2023-12-12 08:36] VITALS: BP 103/58; PULSE 86; O2SAT 100
[2023-12-12 08:37] VITALS: BP 107/59; PULSE 90; O2SAT 98
[2023-12-12] MEDS: BUPIVACAINE HCL 0.25% PF 25 MG/10 ML VIAL 2 ML INJ (08:44)
[2023-12-12] MEDS: IOHEXOL 240 MG/ML - 10 ML VIAL 12 MG INJ (08:44)
[2023-12-12] MEDS: 0.9 % SODIUM CHLORIDE 10 ML SYRINGE - SALINE FLUSH 2 ML INJ (08:44)
[2023-12-12] MEDS: LIDOCAINE HCL 2% PF 100 MG/5 ML VIAL 4 ML INJ (08:45)
[2023-12-12] MEDS: METHYLPREDNISOLONE ACETATE 80 MG/ML VIAL INJ (08:45)
--- NOTE | 2023-12-12 09:35 | W.PM.PROCNOT ---
Date of procedure: 12/12/23 Pre-op diagnosis: Lumbar radiculopathy Post-op diagnosis: same as pre-op Procedure: Caudal Epidural Steroid Injection With catheter advancement Pre-operative diagnosis includes Radiculopathy, Postoperative diagnosis same, Under fluoroscopic guidance Solution used for the injection is Marcaine 0.25% Depo-Medrol 80 mg total of 5ml Omnipaque 3cc,3ml total, 1ml was used for injection to confirm needle tip placement and catheter tip placement within the epidural space. catheter was removed with the tip intact. Anesthesia: local anesthesia using 2% lidocaine, total no more than 5 mL. Timeout process compliant After obtaining informed consent .the patient was brought to the procedure room .placed in the prone position . the area was prepped and draped in a sterile fashion utilizing betadine. 25 gauge needle was used to create a skin wheal over the sacral hiatus identified under fluoroscopy. 17 gauge touhy needle was inserted over the anesthetized area and directed to the [place] hiatus under fluoroscopic guidance . after piercing the sacrococcygeal ligament. Confirmation of needle tip placement within the epidural space was accomplished with injection of contrast solution in AP and Lateral views. Epidural catheter was advanced to the L5 level .catheter placement confirmed with injection of contrast solution . the steroid solution was then injected .needle and catheter was removed post procedurally. patient transferred to recovery area in stable condition. Discharged home after meeting criteria. Anesthesia: Local Surgeon: Terry David Condition: stable
== END 2023-12-12 08:47 | disposition home or self-care (01) ==
LOC: SURGOUT 07:54
PROVIDERS: PCP Family Medicine; Visit Provider Anesthesiology Pain Medicine
DX: M54.16 Radiculopathy, lumbar region (principal)
CPT/HCPCS: 62323; J0665; J1010; Q9966

== ENCOUNTER 2023-12-14 00:09 | Emergency (ER) | payer MEDICARE, MEDICAID, SELFPAY ==
[2023-12-14 00:13] VITALS: BP 107/57; PULSE 77; TEMP 36.4; O2SAT 10; BMI 34.8
--- OUTSIDE RECORDS SUMMARY | 2023-12-14 00:21 | XMS_ITS | CCD ---
Author Organization [facility] Care Team Providers Care Event Specialist Product Demonstrator Name Role Phone NIRMAL LEWIS Admitting Unavailable [...] Unavailable MD Angle Santana Primary Care Provider [phone] [facility] Emergency Provider ROBERT JOHNSTON [...] Trujillo Consulting Unavailable EDGARDO AMEZCUA Consulting Unavailable NUNO VITALE Consulting Unavailable HOY ., DR BARBOUR Admitting [...] HUNTER Consulting Unavailable JUDAH CHARLES Consulting Unavailable BarnesDavid Consulting Unavailable HOY ., DR BARBOUR Admitting Unavailable HOY ., DR BARBOUR Primary Care Unavailable HOY ., DR BARBOUR Consulting Unavailable HOY ., DR BARBOUR Attending Unavailable ALBION, DR CARLOS Castillo Consulting Unavailable LAKSHMIPATHY ., [...] BARBOUR Primary Care Unavailable HARP ., DR ANKIA Sanchez Attending Unavailable HARP ., DR ANIKA [...] Care Unavailable TAMLYN ., FELECIA Attending Unavailable MAICOL .FELECIA Admitting Unavailable HOY ., DR BARBOUR [...] Deepak LAIRD Consulting Unavailable HOY ., DR BARBORU Primary Care Unavailable HARP ., DR ANIKA Sanchez Admitting Unavailable HARP ., DR ANIKA Sanchez Consulting Unavailable HARP ., DR ANIKA Sanchez Attending Unavailable SHAMA ALEXANDRA Consulting Unavailable BUNNY MCMILLAN Consulting Unavailable HOY ., DR BARBOUR Admitting Unavailable HOY ., DR BARBOUR Primary Care Unavailable HOY ., DR BARBOUR Consulting Unavailable MARIAHY ., DR BARBOUR Attending Unavailable MD Angle Santana Primary Care Provider [phone] MD Beatriz Oh Admit Provider DO Jim Randhawa Attending Provider MD [place] Other Provider Jim Randhawa Attending Unavailable Beatriz Oh Admitting Unavailable [place] Consulting Unavailable Angle Santana Primary Care Unavailable Favian Helm Admitting Unavailable Favian Helm Attending Unavailable Angle Santana Primary Care Unavailable STEPHANIE COOPER Referring Unavailable ALONZOSHERLY Attending Unavailable ALONZOSHERLY Referring Unavailable GANGWANI, RAYRAY HARP Referring Unavailab le BARAZIMACIE Attending Unavailable MOUKARBEL, BENJIE Attending Unavailable LISAZANDRA Attending Unavailable JOANA, RHIANNON Attending Unavailable MOUKARBEL, BENJIE Attending Unavailable SONNYDUNCAN Attending Unavailable ALONZO, SHERLY Referring Unavailable MOUKARBEL, BENJIE Attending Unavailable PIRKL, RACHEL Referring Unavailable JOANA, RHIANNON Attending Unavailable ALGHOTHANI, STEPHANIE Referring Unavailable GANGWANI, RAYRAY HARP Referring Unavailab le MOUKARBEL, BENJIE Admitting Unavailable MOUKARBEL, BENJIE Attending Unavailable GANGWANI, RAYRAY HARP Referring Unavailab le HOY, ANGLE Referring Unavailable GANGWANI, RAYRAY HARP Attending Unavailab le YNES, RADHA Admitting Unavailable GANGWANI, RAYRAY HARP Consulting Unavailab le ZENZ, JUDAH Referring Unavailable HOY, ANGLE M Referring Unavailable HOY, ANGLE M Primary Care Unavailable BALJINDER HUGHES Referring Unavailable HOY, ANGLE M Primary Care Unavailable ARMAND ACUNA Consulting Unavailable LOUKA, MERE Attending Unavailable LOUKA, MERE Admitting Unavailable Allergies Allergy Classification Reported Allergen(s) Allergy Type Date of Onset Reaction(s) Facility (11 sources) Amoxicillin Drug Allergy 10-29-19 23 Unknown, [facility] (5 sources) Amoxicillin / Clavulanate Drug Allergy Unknown [facility] Other (13 sources) Povidone-Iodine; Translations: [POVIDONE-IODINE] Drug Allergy 08-15-19 17 Unknown, [facility] (9 sources) Sulfamethoxazole / Trimethoprim Drug Allergy Unknown [facility] Other (1 source) sulfaSALAzine Drug Allergy Unknown [facility] [employer] Other (7 sources) Amoxicillin / Clavulanate Drug Allergy 11-26-19 13 Unknown [facility] (1 source) Bumetanide Drug Allergy 03-22-20 16 [facility] (1 source) Cephalexin Drug Allergy 01-15-20 14 [facility] (2 sources) gabapentin; Translations: [GABAPENTIN] Drug Allergy 08-19-19 22 [facility] (3 sources) Povidone-Iodine Drug Allergy 11-26-19 13 [facility] (1 source) pregabalin; Translations: [LYRICA] Drug Allergy 08-19-19 22 [facility] (7 sources) Sulfonamides (Antibiotic); Translations: [SULFA (SULFONAMIDE ANTIBIOTICS)] Drug allergy (disorder) 11-26-19 13 Rash [facility] (1 source) Sulfonamide Drug allergy Unknown [facility] Other (7 sources) Substance with sulfonamide structure and antibacterial mechanism of action (substance) Drug allergy Unknown [facility] Other (3 sources) Clavulanate; Translations: [clavulanic acid] Drug Allergy 10-29-19 Diarrhea [facility] (1 source) Ciprofloxacin Drug Allergy 05-26-20 [facility] (1 source) Amoxicillin Drug Allergy 04-04-20 23 [facility] (1 source) Povidone-Iodine Drug Allergy 04-04-20 [facility] (1 source) Sulfamethoxazole Drug Allergy 04-04-20 23 [facility] (1 source) Sulfonamides (Antibiotic) Drug allergy (disorder) 04-04-20 [facility] (1 source) Trimethoprim Drug Allergy 04-04-20 [facility] (1 source) Cephalexin; Translations: [CEPHALEXIN] Drug Allergy 06-13-20 14 [facility] (1 source) Ciprofloxacin; Translations: [CIPROFLOXACIN] Drug Allergy 10-11-19 23 [facility] (1 source) Iodine; Translations: [IODINE] Drug Allergy 11-28-19 [facility] (1 source) pregabalin; Translations: [PREGABALIN] Drug Allergy 10-11-19 23 [facility] (1 source) Sulfamethoxazole / Trimethoprim; Translations: [SULFAMETHOXAZOLE-T RIMETHOPRIM] Drug Allergy 11-28-19 23 [facility] (2 sources) AMOXICILLIN-POT CLAVULANATE; Translations: [AMOXICILLIN-POT CLAVULANATE] Propensity to adverse reactions to drug (disorder) 06-13-20 [facility] Medications Current Medications Medication Drug [...] Bumetanide Active 2 MG PO Twice daily July 03, 2023 1:00pm Take twice daily Start: 07-03-2023 End: 07-03-2023 take 6 mg by mouth once daily as needed Bumetanide Discontinued 2 MG PO Twice daily July 03, 2023 1:00pm July 03, 2023 [...] 27, 2022 11:00pm take 1 capsule by [facility] every twelve hours DULoxetine HCl 60 MG [...] Start: 10-28-2022 take 1 capsule by mo [facility] once daily Linaclotide (Linzess) 290 [...] 2023 11:34pm take 3 tablets by mo uth twice daily Sacubitril-Valsartan 97-103 MG 3 tablet [...] 08-31-2018 take 1 tablet by joseph th every six hours Oxycodone-Acetaminophen (Percocet) 5-325 mg Tablet Active 1 - 2 TAB PO Q6H August 31, 2018 12:00am Start: 08-31-2018 take 2 tablets by mo ut every four to six hours Oxycodone-Acetaminophen (Percocet) 5-325 mg Tablet Active 2 TAB PO EVERY 4-6 HOURS August 31, 2018 1:00am take 2 tablets by mo uth every four hours as needed oxyCODONE-Acetaminophen 5-325 MG 2 table t as needed Orally every 4 hrs PRN Active [id number] 200 actuat albuterol 0.09 mg/actuat metered dose [...] meals Orally Four times a day Active Xm-Leppaig-Ffx-Iron Fm-Fa-Vitk (Multi For Her) 18 mg iron-600 mcg-80 mcg Tablet (2 sources) Start: 08-31-2018 End: 06-30-2023 take 1 tablet by mouth once daily Df-Bgwnpxp-Vet-Iron Fm-Fa-Vitk (Multi For Her) 18 mg iron-600 mcg-80 mcg Tablet Discontinued 1 TAB PO Daily August 31, 2018 12:00am June 30, 2023 12:26am Start: 08-31-2018 take 1 tablet by joseph th once daily Va-Jhslnjk-Xlp-Iron Fm-Fa-Vitk (Multi For Her) 18 mg iron-600 [...] disease (3 sources) Atherosclerotic heart disease of [place] coronary artery without angina pectoris; Translations: [ASHD [place] W/O ANGINA PECTORIS] Onset: 3 Chronic [...] medical drugs (1 source) Adverse effect of lrgbvsjxngz-vpcsikstwe-h nzyme inhibitors, initial encounter; Translations: [ADVERSE EFFECT [...] aftercare (2 sources) Polypharmacy ; Translations: [Other custodial (current) drug therapy] 09-04-2018 Episodic Other aftercare (1 source) Other exterminator helper termite (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 Comment on above: Performed By: #### C DP, BMPX #### [address] [address] Yarn Washer: Michael Chen MD Chloride [Moles/Vol] 101 mmol/L Normal 98-107 [facility] Comment on above: Performed By: #### C DP, BMPX #### [address] [address] Yarn Washer: Michael Chen MD CO2 [Moles/Vol] 23 mmol/L Normal 20-31 [facility] Comment on above: Performed By: #### C DP, BMPX #### [address] [address] Yarn Washer: Michael Chen MD Creatinine [Mass/Vol] 1.5 mg/dL High 0.50-0.90 [facility] Comment on above: Performed By: #### C DP, BMPX #### [address] [address] Yarn Washer: Michael Chen MD GFR/1.73 sq M.predicted among non-blacks MDRD (S/P/Bld) [Vol rate/Area] 39 mL/min/{1.73_m2} Low >60 [facility] Comment on above: Result Comment: These [...] Performed By: #### C DP, BMPX #### [facility] [address] [place] [address] Yarn Washer: Michael Chen MD Glucose [Mass/Vol] 100 mg/dL High 74-99 [facility] Comment on above: Performed By: #### C DP, BMPX #### [address] [address] Yarn Washer: Michael Chen MD Potassium [Moles/Vol] 4.4 mmol/L Normal 3.7-5.3 [facility] Comment on above: Performed By: #### C DP, BMPX #### [address] [address] Yarn Washer: Michael Chen MD Sodium [Moles/Vol] 132 mmol/L Low 136-145 [facility] Comment on above: Performed By: #### C DP, BMPX #### [address] [address] Yarn Washer: Michael Chen MD Urea nitrogen [Mass/Vol] 56 mg/dL High 8-23 [facility] Comment on above: Performed By: #### C DP, BMPX #### [facility] [address] [place] [address] Yarn Washer: Michael Chen MD CBC with Diffon 10-01-2023 Abs. Basophil 0.03 k/uL Normal 0.00-0.20 [facility] Comment on above: Performed By: #### C DP, BMPX #### [facility] [address] [place] [address] Yarn Washer: Michael Chen MD Abs.Imm.Granulocyte 0.05 k/uL Normal 0.00-0.30 [facility] Comment on above: Performed By: #### C DP, BMPX #### [address] [address] Yarn Washer: Michael Chen MD Abs.Neutrophil (Seg) 6.55 k/uL Normal 1.50-8.10 [facility] Comment on above: Performed By: #### C DP, BMPX #### [address] [address] Yarn Washer: Michael Chen MD Basophils/100 WBC (Bld) 0 % Normal 0-2 [facility] Comment on above: Performed By: #### C DP, BMPX #### [place] [address] Yarn Washer: Michael Chen MD Eosinophils (Bld) [#/Vol] 0.10 10*3/uL Normal 0.00-0.44 [facility] Comment on above: Performed By: #### C DP, BMPX #### [address] [address] Yarn Washer: Michael Chen MD Eosinophils/100 WBC (Bld) 1 % Normal 1-4 [facility] Comment on above: Performed By: #### C DP, BMPX #### [address] [address] Yarn Washer: Michael Chen MD Erythrocyte distribution width (RBC) [Ratio] 13.6 % Normal 11.8-14.4 [facility] Comment on above: Performed By: #### C DP, BMPX #### [address] [address] Yarn Washer: Michael Chen MD Hematocrit (Bld) [Volume fraction] 27.9 % Low 36.3-47.1 [facility] Comment on above: Performed By: #### C DP, BMPX #### [address] [address] Yarn Washer: Michael Chen MD Hemoglobin (Bld) [Mass/Vol] 8.4 g/dL Low 11.9-15.1 [facility] Comment on above: Performed By: #### C DP, BMPX #### [facility] [address] [place] [address] Yarn Washer: Michael Chen MD Immature granulocytes/100 WBC (Bld) 1 % High 0 [facility] Comment on above: Performed By: #### C DP, BMPX #### [place] [address] Yarn Washer: Michael Chen MD Lymphocytes (Bld) [#/Vol] 0.94 10*3/uL Low 1.10-3.70 [facility] Comment on above: Performed By: #### C DP, BMPX #### [address] [address] Yarn Washer: Michael Chen MD Lymphocytes/100 WBC (Bld) 11 % Low 24-43 [facility] Comment on above: Performed By: #### C DP, BMPX #### [place] [address] Yarn Washer: Michael Chen MD MCH (RBC) [Entitic mass] 30.5 pg Normal 25.2-33.5 [facility] Comment on above: Performed By: #### C DP, BMPX #### [facility] [address] [place] [address] Yarn Washer: Michael Chen MD MCHC (RBC) [Mass/Vol] 30.1 g/dL Normal 28.4-34.8 [facility] Comment on above: Performed By: #### C DP, BMPX #### [address] [address] Yarn Washer: Michael Chen MD MCV (RBC) [Entitic vol] 101.5 fL Normal 82.6-102.9 [facility] Comment on above: Performed By: #### C DP, BMPX #### [place] [address] Yarn Washer: Michael Chen MD Monocytes (Bld) [#/Vol] 0.54 10*3/uL Normal 0.10-1.20 [facility] Comment on above: Performed By: #### C DP, BMPX #### [place] [address] Yarn Washer: Michael Chen MD Monocytes/100 WBC (Bld) 7 % Normal 3-12 [facility] Comment on above: Performed By: #### C DP, BMPX #### [place] [address] Yarn Washer: Michael Chen MD Neutrophil (Seg) 80 % High 36-65 [facility] Comment on above: Performed By: #### C DP, BMPX #### [place] [address] Yarn Washer: Michael Chen MD NRBC Automated 0.0 per [address] [facility] Comment on above: Performed By: #### C DP, BMPX #### [place] [address] Yarn Washer: Michael Chen MD Platelet mean volume (Bld) [Entitic vol] 8.9 fL Normal 8.1-13.5 [facility] Comment on above: Performed By: #### C DP, BMPX #### [address] [address] Yarn Washer: Michael Chen MD Platelets (Bld) [#/Vol] 281 10*3/uL Normal 138-453 [facility] Comment on above: Performed By: #### C DP, BMPX #### [address] [address] Yarn Washer: Michael Chen MD RBC (Bld) [#/Vol] 2.75 10*6/uL Low 3.95-5.11 [facility] Comment on above: Performed By: #### C DP, BMPX #### [address] [address] Yarn Washer: Michael Chen MD WBC (Bld) [#/Vol] 8.2 10*3/uL Normal 3.5-11.3 [facility] Comment on above: Performed By: #### C DP, BMPX #### [address] [address] Yarn Washer: Michael Chen MD Basic Metab w/rfx MGon 09-29 Anion gap [Moles/Vol] 12 mmol/L Normal 9-16 [facility] Comment on above: Performed By: #### L IVP, BMPX, REJEC, BNP #### [address] [address] Yarn Washer: Michael Chen MD Calcium [Mass/Vol] 8.2 mg/dL Low 8.6-10.4 [facility] Comment on above: Performed By: #### L IVP, BMPX, REJEC, BNP #### [address] [address] Yarn Washer: Michael Chen MD Chloride [Moles/Vol] 103 mmol/L Normal 98-107 [facility] Comment on above: Performed By: #### L IVP, BMPX, REJEC, BNP #### [facility] [address] [place] [address] Yarn Washer: Michael Chen MD CO2 [Moles/Vol] 23 mmol/L Normal 20-31 [facility] Comment on above: Performed By: #### L IVP, BMPX, REJEC, BNP #### [facility] [address] [place] [address] Yarn Washer: Michael Chen MD Creatinine [Mass/Vol] 1.6 mg/dL High 0.50-0.90 [facility] Comment on above: Performed By: #### L IVP, BMPX, REJEC, BNP #### [address] [address] Yarn Washer: Michael Chen MD GFR/1.73 sq M.predicted among non-blacks MDRD (S/P/Bld) [Vol rate/Area] 35 mL/min/{1.73_m2} Low >60 [facility] Comment on above: Result Comment: These [...] #### L IVP, BMPX, REJEC, BNP #### [facility] [address] [place] [address] Yarn Washer: Michael Chen MD Glucose [Mass/Vol] 89 mg/dL Normal 74-99 [facility] Comment on above: Performed By: #### L IVP, BMPX, REJEC, BNP #### [facility] [address] [place] [address] Yarn Washer: Michael Chen MD Potassium [Moles/Vol] 4.6 mmol/L Normal 3.7-5.3 [facility] Comment on above: Result Comment: SPEC IMEN SLIGHTLY HEMOLYZED, RESULTS MAY BE ADVERSELY AFFECTED. Performed By: #### L IVP, BMPX, REJEC, BNP #### [facility] [address] [place] [address] Yarn Washer: Michael Chen MD Sodium [Moles/Vol] 138 mmol/L Normal 136-145 [facility] Comment on above: Performed By: #### L IVP, BMPX, REJEC, BNP #### [facility] [address] [place] [address] Yarn Washer: Michael Chen MD Urea nitrogen [Mass/Vol] 57 mg/dL High 8-23 [facility] Comment on above: Performed By: #### L IVP, BMPX, REJEC, BNP #### [facility] [address] [place] [address] Yarn Washer: Michael Chen MD Brain Natri. Peptideon 09-29 Natriuretic peptide B (Bld) [Mass/Vol] 1428 pg/mL High 0-300 [facility] Comment on above: Result Comment: An a ge-independent cutoff point of 300 pg/ml has a 98% negative predictive value excluding acute heart failure. Performed By: #### L IVP, BMPX, REJEC, BNP #### [facility] [address] [place] [address] Yarn Washer: Michael Chen MD Liver Profileon 09-30-2023 Albumin [Mass/Vol] 3.5 g/dL Normal 3.5-5.2 [facility] Comment on above: Performed By: #### L IVP, BMPX, REJEC, BNP #### [facility] [address] [place] [address] Yarn Washer: Michael Chen MD Albumin/Glob Ratio 2.0 Normal 1.0-2.5 [facility] Comment on above: Performed By: #### L IVP, BMPX, REJEC, BNP #### [facility] [address] [place] [address] Yarn Washer: Michael Chen MD Alkaline Phos 301 U/L High 35-104 [facility] Comment on above: Performed By: #### L IVP, BMPX, REJEC, BNP #### [facility] [address] [place] [address] Yarn Washer: Mihcael Chen MD ALT [Catalytic activity/Vol] 17 U/L Normal 10-35 [facility] Comment on above: Performed By: #### L IVP, BMPX, REJEC, BNP #### [facility] [address] [place] [address] Yarn Washer: Michael Chen MD AST [Catalytic activity/Vol] 33 U/L Normal 10-35 [facility] Comment on above: Result Comment: SPEC IMEN SLIGHTLY HEMOLYZED, RESULTS MAY BE ADVERSELY AFFECTED. Performed By: #### L IVP, BMPX, REJEC, BNP #### [facility] [address] [place] [address] Yarn Washer: Michael Chen MD Bilirubin [Mass/Vol] 0.2 mg/dL Normal 0.00-1.20 [facility] Comment on above: Performed By: #### L IVP, BMPX, REJEC, BNP #### [facility] [address] [place] [address] Yarn Washer: Michael Chen MD Bilirubin, Indirect 0.1 mg/dL Normal 0.0-1.0 [facility] Comment on above: Performed By: #### L IVP, BMPX, REJEC, BNP #### [facility] [address] [place] [address] Yarn Washer: Michael Chen MD Bilirubin.indirect [Mass/Vol] mg/dL Normal 0.00-0.30 [facility] Comment on above: Performed By: #### L IVP, BMPX, REJEC, BNP #### [address] [address] Yarn Washer: Michael Chen MD Globulin (S) [Mass/Vol] 2.1 g/dL [facility] Comment on above: Performed By: #### L IVP, BMPX, REJEC, BNP #### [address] [address] Yarn Washer: Michael Chen MD Protein [Mass/Vol] 5.6 g/dL Low 6.6-8.7 [facility] Comment on above: Performed By: #### L IVP, BMPX, REJEC, BNP #### [address] [address] Yarn Washer: Michael Chen MD Specimen Rejectionon 024 Reason for rejection Unable to perform testing: Specimen clotted. Normal [facility] Comment on above: Performed By: #### L IVP, BMPX, REJEC, BNP #### [address] [address] Yarn Washer: Michael Chen MD Source of sample .BLOOD Normal [facility] Comment on above: Performed By: #### L IVP, BMPX, REJEC, BNP #### [address] [address] Yarn Washer: Michael Chen MD Test ordered CDP [facility] Comment on above: Performed By: #### L IVP, BMPX, REJEC, BNP #### [address] [address] Yarn Washer: Michael Chen MD XR CERVICAL SPINE (2-3 [...] Carlos Peralta MD 09/30/[address] [facility] XR CHEST PORTABLEon 09-30-19 XR CHEST [...] Carlos Peralta MD 09/30/[address] [facility] Office Visiton 08-16-2023 Follow-up visit [id number] Loren Moser A 1960 F Date Provider Department Center 08/16/2023 1596-MACIE GARCIA CARD [facility] Family History Family history unknown: Yes Level of Service:22658 SC OFFICE/OUTPATIENT ESTABLISHED MOD MDM 30 MIN Normal [facility] Documentationon 08-07-2023 Documentation [id number] Loren Mosera A 1960 F Date Provider Department Center 08/07/2023 [id number] [facility] Family History Family history unknown: Yes Reason for Visit and Comments: HF inpatient satisfaction survey sent. [Other] Normal [facility] 36on 08-04-2023 36 DC to home on 08/03/19 024 Spoke to pt on 08/04/2023 Med rec completed with pts Delio Pt will need to reschedule appt with cardiology, she will call [place] [facility] to reschedule and will try to get in next week Normal [facility] 30on 08-03-2023 30 Problem: Pain - [...] including repeat lab results as appropriate Normal [facility] BASIC METABOLIC PANELon 02- Anion gap [Moles/Vol] 14 mmol/L Normal 7-20 [facility] Comment on above: Performed By: #### L [id number] #### [facility] ([facility]) [address] [place] [address] Calcium [Mass/Vol] 8.6 mg/dL Normal 8.6-10.3 [facility] Comment on above: Performed By: #### L [id number] #### [facility] ([facility]) [address] [place] [address] Chloride [Moles/Vol] 96 mmol/L Low 98-107 [facility] Comment on above: Performed By: #### L [id number] #### [facility] ([facility]) [address] [place] [address] CO2 [Moles/Vol] 30 mmol/L Normal 21-31 [facility] Comment on above: Performed By: #### L [id number] #### [facility] ([facility]) [address] [place] [address] Creatinine [Mass/Vol] 2.67 mg/dL High 0.60-1.20 [facility] Comment on above: Performed By: #### L [id number] #### [facility] ([facility]) [address] [place] [address] GLOMERULAR FILTRATION RATE ML/MIN/1.73 SQ M.PREDICTED 19.7 mL/min/1.73m*2 Low >60.0 [facility] Comment on above: Result Comment: [facility]???s estimated glomerular filtration rate (eGFR) will [...] individuals. Performed By: #### L [id number] #### [facility] ([facility]) [address] [place] [address] Glucose [Mass/Vol] 78 mg/dL Normal 70-100 [facility] Comment on above: Performed By: #### L [id number] #### [facility] ([facility]) [address] [place] [address] Potassium [Moles/Vol] 3.9 mmol/L Normal 3.5-5.1 [facility] Comment on above: Performed By: #### L [id number] #### [facility] ([facility]) [address] [place] [address] Sodium [Moles/Vol] 136 mmol/L Normal 136-145 [facility] Comment on above: Performed By: #### L [id number] #### [facility] ([facility]) [address] [place] [address] Urea nitrogen [Mass/Vol] 94 mg/dL High 7-25 [facility] Comment on above: Performed By: #### L [id number] #### [facility] ([facility]) [address] [place] [address] UREA NITROGEN/CREATININE (MASS RATIO) IN SER/PLAS 35.2 Normal [facility] Comment on above: Performed By: #### L [id number] #### [facility] ([facility]) [address] [place] [address] CBC WITH AUTO DIFFERENTIALon 08-03-2023 Basophils (Bld) [#/Vol] 0.03 10*3/uL Normal 0.00-0.20 [facility] Comment on above: Performed By: #### L [id number] #### [facility] ([facility]) [address] [place] [address] Basophils/100 WBC (Bld) 0.3 % Normal 0.0-1.0 [facility] Comment on above: Performed By: #### L [id number] #### [facility] ([facility]) [address] [place] [address] Eosinophils (Bld) [#/Vol] 0.14 10*3/uL Normal 0.00-0.50 [facility] Comment on above: Performed By: #### L [id number] #### [facility] ([facility]) [address] [place] [address] Eosinophils/100 WBC (Bld) 1.4 % Normal 0.0-6.0 [facility] Comment on above: Performed By: #### L [id number] #### [facility] ([facility]) [address] [place] [address] Erythrocyte distribution width (RBC) [Ratio] 12.7 % Normal 11.5-15.0 [facility] Comment on above: Performed By: #### L [id number] #### [facility] [address] [place] [address] ERYTHROCYTE MEAN CORPUSCULAR HEMOGLOBIN CONCENTRATION (G/DL) BY AUTOMATED 31.6 g/dL Low 32.0-35.0 [facility] Comment on above: Performed By: #### L [id number] #### [facility] ([facility]) [address] [place] [address] Hematocrit (Bld) [Volume fraction] 29.7 % Low 36.0-48.0 [facility] Comment on above: Performed By: #### L [id number] #### [facility] ([facility]) [address] [place] [address] Hemoglobin (Bld) [Mass/Vol] 9.4 g/dL Low 12.0-15.0 [facility] Comment on above: Performed By: #### L [id number] #### [facility] ([facility]) [address] [place] [address] Immature granulocytes (Bld) [#/Vol] 0.06 10*3/uL Normal 0.00-0.20 [facility] Comment on above: Performed By: #### L [id number] #### [facility] ([facility]) [address] [place] [address] Immature granulocytes/100 WBC (Bld) 0.6 % Normal 0.0-1.0 [facility] Comment on above: Performed By: #### L [id number] #### [facility] ([facility]) [address] [place] [address] Lymphocytes (Bld) [#/Vol] 0.79 10*3/uL Low 1.20-4.00 [facility] Comment on above: Performed By: #### L [id number] #### [facility] ([facility]) [address] [place] [address] Lymphocytes/100 WBC (Bld) 8.0 % Low 20.0-45.0 [facility] Comment on above: Performed By: #### L [id number] #### [facility] ([facility]) [address] [place] [address] MCH (RBC) [Entitic mass] 31.4 pg Normal 27.0-33.0 [facility] Comment on above: Performed By: #### L [id number] #### [facility] ([facility] [address] [place] [address] MCV (RBC) [Entitic vol] 99.3 fL High 82.0-98.0 [facility] Comment on above: Performed By: #### L [id number] #### [facility] ([facility]) [address] [place] [address] Monocytes (Bld) [#/Vol] 0.46 10*3/uL Normal 0.10-1.00 [facility] Comment on above: Performed By: #### L [id number] #### [facility] ([facility]) [address] [place] [address] Monocytes/100 WBC (Bld) 4.6 % Low 5.0-12.0 [facility] Comment on above: Performed By: #### L [id number] #### [facility] ([facility]) [address] [place] [address] Neutrophils (Bld) [#/Vol] 8.42 10*3/uL High 1.60-7.60 [facility] Comment on above: Performed By: #### L [id number] #### [facility] ([facility]) [address] [place] [address] Neutrophils/100 WBC (Bld) 85.1 % High 40.0-72.0 [facility] Comment on above: Performed By: #### L [id number] #### [facility] [address] [place] [address] NRBC (PER 100 WBCS) BY AUTOMATED COUNT 0.0 % Normal 0 [facility] Comment on above: Performed By: #### L [id number] #### [facility] ([facility]) [address] [place] [address] PLATELETS (10*3/UL) IN BLOOD AUTOMATED COUNT 211 10*3/uL Normal 150-400 [facility] Comment on above: Performed By: #### L [id number] #### [facility] ([facility]) [address] [address] RBC (Bld) [#/Vol] 2.99 10*6/uL Low 3.80-5.00 [facility] Comment on above: Performed By: #### L [id number] #### [facility] ([facility]) [address] [place] [address] WBC (Bld) [#/Vol] 9.90 10*3/uL Normal 4.00-10.60 [facility] Comment on above: Performed By: #### L [id number] #### [facility] ([facility]) [address] [place] [address] 30on 08-02-2023 30 Daily Case Managemen t [...] Select all services needed for the patient [facility] (30 day convalescent stay) Please indicate [...] OT? Answer: Discharge Planning 08/01/23 1007 Normal [facility] 30 Problem: Pain - Adul t [...] symptoms of volume excess or deficit Normal [facility] BASIC METABOLIC PANELon Anion gap [Moles/Vol] 10 mmol/L Normal 7-20 [facility] Comment on above: Performed By: #### L [id number] #### [facility] ([facility]) [address] [place] [address] Calcium [Mass/Vol] 8.5 mg/dL Low 8.6-10.3 [facility] Comment on above: Performed By: #### L [id number] #### [facility] [address] [place] [address] Chloride [Moles/Vol] 96 mmol/L Low 98-107 [facility] Comment on above: Performed By: #### L [id number] #### [facility] ([facility]) [address] [place] [address] CO2 [Moles/Vol] 33 mmol/L High 21-31 [facility] Comment on above: Performed By: #### L [id number] #### [facility] ([facility]) [address] [place] [address] Creatinine [Mass/Vol] 2.73 mg/dL High 0.60-1.20 [facility] Comment on above: Performed By: #### L [id number] #### [facility] ([facility]) [address] [place] [address] GLOMERULAR FILTRATION RATE ML/MIN/1.73 SQ M.PREDICTED 19.2 mL/min/1.73m*2 Low >60.0 [facility] Comment on above: Result Comment: The [facility]???s estimated glomerular filtration rate (eGFR) will [...] group of individuals. Performed By: #### L [id number] #### [facility] [address] [place] [address] Glucose [Mass/Vol] 114 mg/dL High 70-100 [facility] Comment on above: Performed By: #### L [id number] #### [facility] ([facility]) [address] [place] [address] Potassium [Moles/Vol] 3.7 mmol/L Normal 3.5-5.1 [facility] Comment on above: Performed By: #### L [id number] #### [facility] ([facility]) [address] [place] [address] Sodium [Moles/Vol] 135 mmol/L Low 136-145 [facility] Comment on above: Performed By: #### L [id number] #### [facility] ([facility]) [address] [place] [address] Urea nitrogen [Mass/Vol] 90 mg/dL High 7-25 [facility] Comment on above: Performed By: #### L [id number] #### [facility] ([facility]) [address] [place] [address] UREA NITROGEN/CREATININE (MASS RATIO) IN SER/PLAS 33.0 Normal [facility] Comment on above: Performed By: #### L [id number] #### [facility] ([facility]) [address] [place] [address] CBC WITH AUTO DIFFERENTIALon 08-02-2023 Basophils (Bld) [#/Vol] 0.03 10*3/uL Normal 0.00-0.20 [facility] Comment on above: Performed By: #### L [id number] #### [facility] ([facility]) [address] [place] [address] Basophils/100 WBC (Bld) 0.4 % Normal 0.0-1.0 [facility] Comment on above: Performed By: #### L [id number] #### [facility] ([facility]) [address] [place] [address] Eosinophils (Bld) [#/Vol] 0.13 10*3/uL Normal 0.00-0.50 [facility] Comment on above: Performed By: #### L [id number] #### [facility] [address] [place] [address] Eosinophils/100 WBC (Bld) 1.7 % Normal 0.0-6.0 [facility] Comment on above: Performed By: #### L [id number] #### [facility] ([facility]) [address] [place] [address] Erythrocyte distribution width (RBC) [Ratio] 12.9 % Normal 11.5-15.0 [facility] Comment on above: Performed By: #### L [id number] #### [facility] ([facility]) [address] [place] [address] ERYTHROCYTE MEAN CORPUSCULAR HEMOGLOBIN CONCENTRATION (G/DL) BY AUTOMATED 31.1 g/dL Low 32.0-35.0 [facility] Comment on above: Performed By: #### L [id number] #### [facility] ([facility]) [address] [place] [address] Hematocrit (Bld) [Volume fraction] 29.6 % Low 36.0-48.0 [facility] Comment on above: Performed By: #### L [id number] #### [facility] ([facility]) [address] [place] [address] Hemoglobin (Bld) [Mass/Vol] 9.2 g/dL Low 12.0-15.0 [facility] Comment on above: Performed By: #### L [id number] #### [facility] ([facility]) [address] [place] [address] Immature granulocytes (Bld) [#/Vol] 0.05 10*3/uL Normal 0.00-0.20 [facility] Comment on above: Performed By: #### L [id number] #### [facility] ([facility]) [address] [place] [address] Immature granulocytes/100 WBC (Bld) 0.7 % Normal 0.0-1.0 [facility] Comment on above: Performed By: #### L [id number] #### [facility] ([facility]) [address] [place] [address] Lymphocytes (Bld) [#/Vol] 1.62 10*3/uL Normal 1.20-4.00 [facility] Comment on above: Performed By: #### L [id number] #### [facility] ([facility]) [address] [place] [address] Lymphocytes/100 WBC (Bld) 21.7 % Normal 20.0-45.0 [facility] Comment on above: Performed By: #### L [id number] #### [facility] ([facility]) [address] [place] [address] MCH (RBC) [Entitic mass] 30.9 pg Normal 27.0-33.0 [facility] Comment on above: Performed By: #### L [id number] #### [facility] ([facility]) [address] [address] MCV (RBC) [Entitic vol] 99.3 fL High 82.0-98.0 [facility] Comment on above: Performed By: #### L [id number] #### [facility] ([facility]) [address] [place] [address] Monocytes (Bld) [#/Vol] 0.53 10*3/uL Normal 0.10-1.00 [facility] Comment on above: Performed By: #### L [id number] #### [facility] ([facility]) [address] [place] [address] Monocytes/100 WBC (Bld) 7.1 % Normal 5.0-12.0 [facility] Comment on above: Performed By: #### L [id number] #### [facility] [address] [place] [address] Neutrophils (Bld) [#/Vol] 5.10 10*3/uL Normal 1.60-7.60 [facility] Comment on above: Performed By: #### L [id number] #### [facility] ([facility]) [address] [place] [address] Neutrophils/100 WBC (Bld) 68.4 % Normal 40.0-72.0 [facility] Comment on above: Performed By: #### L [id number] #### [facility] ([facility]) [address] [place] [address] NRBC (PER 100 WBCS) BY AUTOMATED COUNT 0.0 % Normal 0 [facility] Comment on above: Performed By: #### L [id number] #### [facility] ([facility]) [address] [place] [address] PLATELETS (10*3/UL) IN BLOOD AUTOMATED COUNT 249 10*3/uL Normal 150-400 [facility] Comment on above: Performed By: #### L [id number] #### [facility] ([facility]) [address] [place] [address] RBC (Bld) [#/Vol] 2.98 10*6/uL Low 3.80-5.00 [facility] Comment on above: Performed By: #### L [id number] #### [facility] ([facility]) [address] [place] [address] WBC (Bld) [#/Vol] 7.46 10*3/uL Normal 4.00-10.60 [facility] Comment on above: Performed By: #### L [id number] #### [facility] ([facility]) [address] [place] [address] MAGNESIUMon 08-02-2023 Magnesium [Mass/Vol] 2.1 mg/dL Normal 1.9-2.7 [facility] Comment on above: Performed By: #### L [id number] #### [facility] [address] [place] [address] PHOSPHORUSon 08-02-2023 Magnesium [Mass/Vol] 5.3 mg/dL High 2.5-5.0 [facility] Comment on above: Performed By: #### L [id number] #### [facility] ([facility]) [address] [place] [address] BASIC METABOLIC PANELon 02-0 Anion gap [Moles/Vol] 11 mmol/L Normal 7-20 [facility] Comment on above: Performed By: #### L [id number] #### [facility] ([facility]) [address] [place] [address] Calcium [Mass/Vol] 8.9 mg/dL Normal 8.6-10.3 [facility] Comment on above: Performed By: #### L [id number] #### [facility] ([facility]) [address] [place] [address] Chloride [Moles/Vol] 98 mmol/L Normal 98-107 [facility] Comment on above: Performed By: #### L [id number] #### [facility] ([facility]) [address] [place] [address] CO2 [Moles/Vol] 32 mmol/L High 21-31 [facility] Comment on above: Performed By: #### L [id number] #### [facility] ([facility]) [address] [place] [address] Creatinine [Mass/Vol] 2.68 mg/dL High 0.60-1.20 [facility] Comment on above: Performed By: #### L [id number] #### [facility] ([facility]) [address] [place] [address] GLOMERULAR FILTRATION RATE ML/MIN/1.73 SQ M.PREDICTED 19.6 mL/min/1.73m*2 Low >60.0 [facility] Comment on above: Result Comment: The [facility]???s estimated glomerular filtration rate (eGFR) will [...] group of individuals. Performed By: #### L [id number] #### [facility] ([facility]) [address] [place] [address] Glucose [Mass/Vol] 71 mg/dL Normal 70-100 [facility] Comment on above: Performed By: #### L [id number] #### [facility] ([facility]) [address] [place] [address] Potassium [Moles/Vol] 4.1 mmol/L Normal 3.5-5.1 [facility] Comment on above: Performed By: #### L [id number] #### [facility] ([facility]) [address] [place] [address] Sodium [Moles/Vol] 137 mmol/L Normal 136-145 [facility] Comment on above: Performed By: #### L [id number] #### [facility] ([facility]) [address] [place] [address] Urea nitrogen [Mass/Vol] 87 mg/dL High 7-25 [facility] Comment on above: Performed By: #### L [id number] #### [facility] ([facility]) [address] [place] [address] UREA NITROGEN/CREATININE (MASS RATIO) IN SER/PLAS 32.5 Normal [facility] Comment on above: Performed By: #### L [id number] #### [facility] ([facility]) [address] [place] [address] CBC WITH AUTO DIFFERENTIALon 08-01-2023 Basophils (Bld) [#/Vol] 0.03 10*3/uL Normal 0.00-0.20 [facility] Comment on above: Performed By: #### L [id number] ####[facility] ([facility])[address] [place] [address] Basophils/100 WBC (Bld) 0.4 % Normal 0.0-1.0 [facility] Comment on above: Performed By: #### L [id number] ####[facility] ([facility])[address] [place] [address] Eosinophils (Bld) [#/Vol] 0.11 10*3/uL Normal 0.00-0.50 [facility] Comment on above: Performed By: #### L [id number] ####[facility] ([facility])[address] [place] [address] Eosinophils/100 WBC (Bld) 1.5 % Normal 0.0-6.0 [facility] Comment on above: Performed By: #### L [id number] ####[facility] ([facility])[address] [place] [address] Erythrocyte distribution width (RBC) [Ratio] 12.8 % Normal 11.5-15.0 [facility] Comment on above: Performed By: #### L [id number] ####[facility] ([facility])[address] [place] [address] ERYTHROCYTE MEAN CORPUSCULAR HEMOGLOBIN CONCENTRATION (G/DL) BY AUTOMATED 31.1 g/dL Low 32.0-35.0 [facility] Comment on above: Performed By: #### L [id number] ####[facility] ([facility])[address] [place] [address] Hematocrit (Bld) [Volume fraction] 31.8 % Low 36.0-48.0 [facility] Comment on above: Performed By: #### L [id number] ####[facility] ([facility])[address] [place] [address] Hemoglobin (Bld) [Mass/Vol] 9.9 g/dL Low 12.0-15.0 [facility] Comment on above: Performed By: #### L [id number] ####[facility] ([facility])[address] [place] [address] Immature granulocytes (Bld) [#/Vol] 0.05 10*3/uL Normal 0.00-0.20 [facility] Comment on above: Performed By: #### L [id number] ####[facility] ([facility])[address] [place] [address] Immature granulocytes/100 WBC (Bld) 0.7 % Normal 0.0-1.0 [facility] Comment on above: Performed By: #### L [id number] ####[facility] ([facility])[address] [place] [address] Lymphocytes (Bld) [#/Vol] 1.55 10*3/uL Normal 1.20-4.00 [facility] Comment on above: Performed By: #### L [id number] ####[facility] ([facility])[address] [place] [address] Lymphocytes/100 WBC (Bld) 21.0 % Normal 20.0-45.0 [facility] Comment on above: Performed By: #### L [id number] ####[facility] [place] [address] MCH (RBC) [Entitic mass] 30.7 pg Normal 27.0-33.0 [facility] Comment on above: Performed By: #### L [id number] ####[facility] [place] [address] MCV (RBC) [Entitic vol] 98.5 fL High 82.0-98.0 [facility] Comment on above: Performed By: #### L [id number] ####[facility] ([facility])[address] [place] [address] Monocytes (Bld) [#/Vol] 0.55 10*3/uL Normal 0.10-1.00 [facility] Comment on above: Performed By: #### L [id number] ####[facility] ([facility])[address] [place] [address] Monocytes/100 WBC (Bld) 7.5 % Normal 5.0-12.0 [facility] Comment on above: Performed By: #### L [id number] ####[facility] ([facility])[address] [place] [address] Neutrophils (Bld) [#/Vol] 5.08 10*3/uL Normal 1.60-7.60 [facility] Comment on above: Performed By: #### L [id number] ####[facility] ([facility])[address] [place] [address] Neutrophils/100 WBC (Bld) 68.9 % Normal 40.0-72.0 [facility] Comment on above: Performed By: #### L [id number] ####[facility] ([facility])[address] [place] [address] NRBC (PER 100 WBCS) BY AUTOMATED COUNT 0.0 % Normal 0 [facility] Comment on above: Performed By: #### L [id number] ####[facility] ([facility])[address] [place] [address] PLATELETS (10*3/UL) IN BLOOD AUTOMATED COUNT 270 10*3/uL Normal 150-400 [facility] Comment on above: Performed By: #### L [id number] ####[facility] ([facility])[address] [place] [address] RBC (Bld) [#/Vol] 3.23 10*6/uL Low 3.80-5.00 [facility] Comment on above: Performed By: #### L [id number] ####[facility] ([facility])[address] [place] [address] WBC (Bld) [#/Vol] 7.37 10*3/uL Normal 4.00-10.60 [facility] [place] Comment on above: Performed By: #### L [id number] ####[facility] ([facility])[address] [place] [address] MAGNESIUMon 08-01-2023 Magnesium [Mass/Vol] 1.8 mg/dL Low 1.9-2.7 [facility] Comment on above: Performed By: #### L [id number] ####[facility] [place] [address] PHOSPHORUSon 08-01-2023 Magnesium [Mass/Vol] 5.4 mg/dL High 2.5-5.0 [facility] Comment on above: Performed By: #### L [id number] ####[facility] ([facility])[address] [place] [address] TROPONIN Ion 08-01-2023 Troponin I.cardiac [Mass/Vol] 0.01 ng/mL Normal 0.00-0.04 [facility] Comment on above: Performed By: #### L [id number] #### [facility] ([facility]) [address] [place] [address] CBCon 07-31-2023 Erythrocyte distribution width (RBC) [Ratio] 13.0 % Normal 11.5-15.0 [facility] Comment on above: Performed By: #### L [id number] #### [facility] ([facility]) [address] [place] [address] ERYTHROCYTE MEAN CORPUSCULAR HEMOGLOBIN CONCENTRATION (G/DL) BY AUTOMATED 32.3 g/dL Normal 32.0-35.0 [facility] Comment on above: Performed By: #### L [id number] #### [facility] ([facility]) [address] [place] [address] Hematocrit (Bld) [Volume fraction] 28.2 % Low 36.0-48.0 [facility] Comment on above: Performed By: #### L [id number] #### [facility] ([facility]) [address] [place] [address] Hemoglobin (Bld) [Mass/Vol] 9.1 g/dL Low 12.0-15.0 [facility] Comment on above: Performed By: #### L [id number] #### [facility] [address] [place] [address] MCH (RBC) [Entitic mass] 31.4 pg Normal 27.0-33.0 [facility] Comment on above: Performed By: #### L [id number] #### [facility] ([facility]) [address] [place] [address] MCV (RBC) [Entitic vol] 97.2 fL Normal 82.0-98.0 [facility] Comment on above: Performed By: #### L [id number] #### [facility] ([facility]) [address] [place] [address] PLATELETS (10*3/UL) IN BLOOD AUTOMATED COUNT 247 10*3/uL Normal 150-400 [facility] Comment on above: Performed By: #### L [id number] #### [facility] ([facility]) [address] [place] [address] RBC (Bld) [#/Vol] 2.90 10*6/uL Low 3.80-5.00 [facility] Comment on above: Performed By: #### L [id number] #### [facility] ([facility]) [address] [place] [address] WBC (Bld) [#/Vol] 6.08 10*3/uL Normal 4.00-10.60 [facility] Comment on above: Performed By: #### L [id number] #### [facility] ([facility]) [address] [place] [address] COMPREHENSIVE METABOLIC PANE Sameer 07-31-2023 Albumin [Mass/Vol] 3.2 g/dL Low 3.5-5.7 [facility] Comment on above: Performed By: #### L [id number] ####[facility] ([facility])[address] [place] [address] ALP [Catalytic activity/Vol] 156 U/L High 34-104 [facility] Comment on above: Performed By: #### L [id number] ####[facility] ([facility])[address] [place] [address] ALT [Catalytic activity/Vol] 13 U/L Normal 7-52 [facility] Comment on above: Performed By: #### L [id number] ####[facility] ([facility])[address] [place] [address] Anion gap [Moles/Vol] 11 mmol/L Normal 7-20 [facility] Comment on above: Performed By: #### L [id number] ####[facility] ([facility])[address] [place] [address] AST [Catalytic activity/Vol] 16 U/L Normal 13-39 [facility] Comment on above: Performed By: #### L [id number] ####[facility] [place] [address] Bilirubin [Mass/Vol] 0.2 mg/dL Low 0.3-1.0 [facility] Comment on above: Performed By: #### L [id number] ####[facility] [place] [address] Calcium [Mass/Vol] 8.7 mg/dL Normal 8.6-10.3 [facility] Comment on above: Performed By: #### L [id number] ####[facility] [place] [address] Chloride [Moles/Vol] 101 mmol/L Normal 98-107 [facility] Comment on above: Performed By: #### L [id number] ####[facility] ([facility])[address] [place] [address] CO2 [Moles/Vol] 29 mmol/L Normal 21-31 [facility] Comment on above: Performed By: #### L [id number] ####[facility] ([facility])[address] [place] [address] Creatinine [Mass/Vol] 2.51 mg/dL High 0.60-1.20 [facility] Comment on above: Performed By: #### L [id number] ####[facility] ([facility])[address] [place] [address] GLOMERULAR FILTRATION RATE ML/MIN/1.73 SQ M.PREDICTED 21.2 mL/min/1.73m*2 Low >60.0 [facility] Comment on above: Result Comment: The [facility]???s estimated glomerular filtration rate (eGFR) will [...] of individuals. Performed By: #### L [id number] ####[facility] ([facility])[address] [place] [address] Glucose [Mass/Vol] 86 mg/dL Normal 70-100 [facility] Comment on above: Performed By: #### L [id number] ####[facility] ([facility])[address] [place] [address] Potassium [Moles/Vol] 3.9 mmol/L Normal 3.5-5.1 [facility] Comment on above: Performed By: #### L [id number] ####[facility] ([facility])[address] [place] [address] Protein [Mass/Vol] 5.5 g/dL Low 6.0-8.3 [facility] Comment on above: Performed By: #### L [id number] ####[facility] [place] [address] Sodium [Moles/Vol] 137 mmol/L Normal 136-145 [facility] Comment on above: Performed By: #### L [id number] ####[facility] ([facility])[address] [place] [address] Urea nitrogen [Mass/Vol] 88 mg/dL High 7-25 [facility] Comment on above: Performed By: #### L [id number] ####[facility] ([facility])[address] [place] [address] UREA NITROGEN/CREATININE (MASS RATIO) IN SER/PLAS 35.1 Normal [facility] Comment on above: Performed By: #### L [id number] ####[facility] ([facility])[address] [place] [address] HEPATITIS B CORE ANTIBODY, T OTALon 07-31-2023 HEPATITIS B VIRUS CORE AB (PRESENCE) IN SER/PLAS BY IMM Non-Reactive Normal Nonreactive [facility] Comment on above: Performed By: #### L [id number] ####[facility] ([facility])[address] [place] [address] HEPATITIS B SURFACE ANTIBODY QUANTon 07-31-2023 HEPATITIS B VIRUS SURFACE AB (MIU/ML) IN SERUM 1.84 mIU/mL Normal [facility] Comment on above: Result Comment: INTE RPRETATION: NONREACTIVE<8.00 mIU/mL INDETERMINATE8.00 - 12.00 mIU/mL REACTIVE>12 mIU/mL Performed By: #### L [id number] #### [facility] ([facility]) [address] [place] [address] HEPATITIS B SURFACE ANTIGENo n 07-31-2023 HEPATITIS B VIRUS SURFACE AG PRESENCE IN SERUM Non-Reactive Normal Nonreactive [facility] Comment on above: Performed By: #### L [id number] #### [facility] ([facility]) [address] [place] [address] HEPATITIS C ANTIBODYon 07-31 HEPATITIS C VIRUS AB PRESENCE IN SERUM Non-Reactive Normal Nonreactive [facility] Comment on above: Performed By: #### L [id number] #### [facility] ([facility]) [address] [place] [address] MAGNESIUMon 07-31-2023 Magnesium [Mass/Vol] 1.6 mg/dL Low 1.9-2.7 [facility] Comment on above: Performed By: #### L [id number] ####[facility] ([facility])[address] [place] [address] PROTEIN ELECTROPHORESIS, URI NE, 24 HOURon 07-31-2023 Protein (U) [Mass/Vol] 10.8 mg/dL Normal [facility] Comment on above: Result Comment: Ther e are no established reference values for random urine specimens. Performed By: #### L [id number] ####[facility] ([facility])[address] [place] [address] UPEP INTERPRETATION Please see attached report. Normal [facility] Comment on above: Performed By: #### L [id number] ####[facility] ([facility])[address] [place] [address] BASIC METABOLIC PANELon 02-0 Anion gap [Moles/Vol] 12 mmol/L Normal 7-20 [facility] Comment on above: Performed By: #### L [id number] #### [facility] ([facility]) [address] [place] [address] Calcium [Mass/Vol] 8.4 mg/dL Low 8.6-10.3 [facility] Comment on above: Performed By: #### L [id number] #### [facility] ([facility]) [address] [place] [address] Chloride [Moles/Vol] 103 mmol/L Normal 98-107 [facility] Comment on above: Performed By: #### L [id number] #### [facility] ([facility]) [address] [place] [address] CO2 [Moles/Vol] 25 mmol/L Normal 21-31 [facility] Comment on above: Performed By: #### L [id number] #### [facility] ([facility]) [address] [place] [address] Creatinine [Mass/Vol] 2.95 mg/dL High 0.60-1.20 [facility] Comment on above: Performed By: #### L [id number] #### [facility] ([facility]) [address] [place] [address] GLOMERULAR FILTRATION RATE ML/MIN/1.73 SQ M.PREDICTED 17.5 mL/min/1.73m*2 Low >60.0 [facility] Comment on above: Result Comment: The [facility]???s estimated glomerular filtration rate (eGFR) will [...] individuals. Performed By: #### L [id number] #### [facility] ([facility]) [address] [place] [address] Glucose [Mass/Vol] 84 mg/dL Normal 70-100 [facility] Comment on above: Performed By: #### L [id number] #### [facility] ([facility]) [address] [place] [address] Potassium [Moles/Vol] 4.2 mmol/L Normal 3.5-5.1 [facility] Comment on above: Performed By: #### L [id number] #### [facility] [address] [place] [address] Sodium [Moles/Vol] 136 mmol/L Normal 136-145 [facility] Comment on above: Performed By: #### L [id number] #### [facility] [address] [place] [address] Urea nitrogen [Mass/Vol] 96 mg/dL High 7-25 [facility] Comment on above: Performed By: #### L [id number] #### [facility] [address] [place] [address] UREA NITROGEN/CREATININE (MASS RATIO) IN SER/PLAS 32.5 Normal [facility] Comment on above: Performed By: #### L [id number] #### [facility] ([facility]) [address] [place] [address] CBCon 07-30-2023 Erythrocyte distribution width (RBC) [Ratio] 13.2 % Normal 11.5-15.0 [facility] Comment on above: Performed By: #### L [id number] #### [facility] ([facility]) [address] [place] [address] ERYTHROCYTE MEAN CORPUSCULAR HEMOGLOBIN CONCENTRATION (G/DL) BY AUTOMATED 32.0 g/dL Normal 32.0-35.0 [facility] Comment on above: Performed By: #### L [id number] #### [facility] ([facility]) [address] [place] [address] Hematocrit (Bld) [Volume fraction] 28.1 % Low 36.0-48.0 [facility] Comment on above: Performed By: #### L [id number] #### [facility] ([facility]) [address] [place] [address] Hemoglobin (Bld) [Mass/Vol] 9.0 g/dL Low 12.0-15.0 [facility] Comment on above: Performed By: #### L [id number] #### [facility] ([facility]) [address] [place] [address] MCH (RBC) [Entitic mass] 31.3 pg Normal 27.0-33.0 [facility] Comment on above: Performed By: #### L [id number] #### [facility] ([facility]) [address] [place] [address] MCV (RBC) [Entitic vol] 97.6 fL Normal 82.0-98.0 [facility] Comment on above: Performed By: #### L [id number] #### [facility] [address] [place] [address] PLATELETS (10*3/UL) IN BLOOD AUTOMATED COUNT 245 10*3/uL Normal 150-400 [facility] Comment on above: Performed By: #### L [id number] #### [facility] [address] [place] [address] RBC (Bld) [#/Vol] 2.88 10*6/uL Low 3.80-5.00 [facility] Comment on above: Performed By: #### L [id number] #### [facility] ([facility]) [address] [place] [address] WBC (Bld) [#/Vol] 5.95 10*3/uL Normal 4.00-10.60 [facility] Comment on above: Performed By: #### L [id number] #### [facility] ([facility]) [address] [place] [address] BASIC METABOLIC PANELon -0 Anion gap [Moles/Vol] 14 mmol/L Normal 7-20 [facility] Comment on above: Performed By: #### L [id number] ####[facility] ([facility])[address] [place] [address] Calcium [Mass/Vol] 8.0 mg/dL Low 8.6-10.3 [facility] Comment on above: Performed By: #### L [id number] ####[facility] ([facility])[address] [place] [address] Chloride [Moles/Vol] 104 mmol/L Normal 98-107 [facility] Comment on above: Performed By: #### L [id number] ####[facility] ([facility])[address] [place] [address] CO2 [Moles/Vol] 21 mmol/L Normal 21-31 [facility] Comment on above: Performed By: #### L [id number] ####[facility] ([facility])[address] [place] [address] Creatinine [Mass/Vol] 3.42 mg/dL High 0.60-1.20 [facility] Comment on above: Performed By: #### L [id number] ####[facility] ([facility])[address] [place] [address] GLOMERULAR FILTRATION RATE ML/MIN/1.73 SQ M.PREDICTED 14.7 mL/min/1.73m*2 Low >60.0 [facility] Comment on above: Result Comment: The [facility]???s estimated glomerular filtration rate (eGFR) will [...] of individuals. Performed By: #### L [id number] ####[facility] ([facility])[address] [place] [address] Glucose [Mass/Vol] 75 mg/dL Normal 70-100 [facility] Comment on above: Performed By: #### L [id number] ####[facility] ([facility])[address] [place] [address] Potassium [Moles/Vol] 5.1 mmol/L Normal 3.5-5.1 [facility] Comment on above: Performed By: #### L [id number] ####[facility] ([facility])[address] [place] [address] Sodium [Moles/Vol] 134 mmol/L Low 136-145 [facility] Comment on above: Performed By: #### L [id number] ####[facility] ([facility])[address] [place] [address] Urea nitrogen [Mass/Vol] 104 mg/dL High 7-25 [facility] Comment on above: Performed By: #### L [id number] ####[facility] ([facility])[address] [place] [address] UREA NITROGEN/CREATININE (MASS RATIO) IN SER/PLAS 30.4 Normal [facility] Comment on above: Performed By: #### L [id number] ####[facility] ([facility])[address] [place] [address] Anion gap [Moles/Vol] 14 mmol/L Normal 7-20 [facility] Comment on above: Performed By: #### L [id number] #### [facility] ([facility]) [address] [place] [address] Calcium [Mass/Vol] 7.5 mg/dL Low 8.6-10.3 [facility] Comment on above: Performed By: #### L [id number] #### [facility] ([facility]) [address] [place] [address] Chloride [Moles/Vol] 104 mmol/L Normal 98-107 [facility] Comment on above: Performed By: #### L [id number] #### [facility] ([facility]) [address] [place] [address] CO2 [Moles/Vol] 21 mmol/L Normal 21-31 [facility] Comment on above: Performed By: #### L [id number] #### [facility] ([facility]) [address] [place] [address] Creatinine [Mass/Vol] 3.52 mg/dL High 0.60-1.20 [facility] Comment on above: Performed By: #### L [id number] #### [facility] ([facility]) [address] [place] [address] GLOMERULAR FILTRATION RATE ML/MIN/1.73 SQ M.PREDICTED 14.2 mL/min/1.73m*2 Low >60.0 [facility] Comment on above: Result Comment: The [facility]???s estimated glomerular filtration rate (eGFR) will [...] individuals. Performed By: #### L [id number] #### [facility] [address] [place] [address] Glucose [Mass/Vol] 82 mg/dL Normal 70-100 [facility] Comment on above: Performed By: #### L [id number] #### [facility] ([facility]) [address] [place] [address] Potassium [Moles/Vol] 4.9 mmol/L Normal 3.5-5.1 [facility] Comment on above: Performed By: #### L [id number] #### [facility] ([facility]) [address] [place] [address] Sodium [Moles/Vol] 134 mmol/L Low 136-145 [facility] Comment on above: Performed By: #### L [id number] #### [facility] ([facility]) [address] [place] [address] Urea nitrogen [Mass/Vol] 105 mg/dL High 7-25 [facility] Comment on above: Performed By: #### L [id number] #### [facility] ([facility]) [address] [place] [address] UREA NITROGEN/CREATININE (MASS RATIO) IN SER/PLAS 29.8 Normal [facility] Comment on above: Performed By: #### L [id number] #### [facility] ([facility]) [address] [place] [address] CBC WITH AUTO DIFFERENTIALon 07-29-2023 Basophils (Bld) [#/Vol] 0.02 10*3/uL Normal 0.00-0.20 [facility] Comment on above: Performed By: #### L [id number] ####[facility] ([facility])[address] [place] [address] Basophils/100 WBC (Bld) 0.3 % Normal 0.0-1.0 [facility] Comment on above: Performed By: #### L [id number] ####[facility] ([facility])[address] [place] [address] Eosinophils (Bld) [#/Vol] 0.12 10*3/uL Normal 0.00-0.50 [facility] Comment on above: Performed By: #### L [id number] ####[facility] ([facility])[address] [place] [address] Eosinophils/100 WBC (Bld) 1.9 % Normal 0.0-6.0 [facility] Comment on above: Performed By: #### L [id number] ####[facility] [place] [address] Erythrocyte distribution width (RBC) [Ratio] 13.5 % Normal 11.5-15.0 [facility] Comment on above: Performed By: #### L [id number] ####[facility] ([facility])[address] [place] [address] ERYTHROCYTE MEAN CORPUSCULAR HEMOGLOBIN CONCENTRATION (G/DL) BY AUTOMATED 31.5 g/dL Low 32.0-35.0 [facility] Comment on above: Performed By: #### L [id number] ####[facility] ([facility])[address] [place] [address] Hematocrit (Bld) [Volume fraction] 27.6 % Low 36.0-48.0 [facility] Comment on above: Performed By: #### L [id number] ####[facility] ([facility])[address] [place] [address] Hemoglobin (Bld) [Mass/Vol] 8.7 g/dL Low 12.0-15.0 [facility] Comment on above: Performed By: #### L [id number] ####[facility] ([facility])[address] [place] [address] Immature granulocytes (Bld) [#/Vol] 0.06 10*3/uL Normal 0.00-0.20 [facility] Comment on above: Performed By: #### L [id number] ####[facility] ([facility])[address] [place] [address] Immature granulocytes/100 WBC (Bld) 1.0 % Normal 0.0-1.0 [facility] Comment on above: Performed By: #### L [id number] ####[facility] ([facility])[address] [place] [address] Lymphocytes (Bld) [#/Vol] 1.28 10*3/uL Normal 1.20-4.00 [facility] Comment on above: Performed By: #### L [id number] ####[facility] ([facility])[address] [place] [address] Lymphocytes/100 WBC (Bld) 20.4 % Normal 20.0-45.0 [facility] Comment on above: Performed By: #### L [id number] ####[facility] ([facility])[address] [place] [address] MCH (RBC) [Entitic mass] 31.3 pg Normal 27.0-33.0 [facility] Comment on above: Performed By: #### L [id number] ####[facility] ([facility])[address] [place] [address] MCV (RBC) [Entitic vol] 99.3 fL High 82.0-98.0 [facility] Comment on above: Performed By: #### L [id number] ####[facility] ([facility])[address] [place] [address] Monocytes (Bld) [#/Vol] 0.54 10*3/uL Normal 0.10-1.00 [facility] Comment on above: Performed By: #### L [id number] ####[facility] ([facility])[address] [place] [address] Monocytes/100 WBC (Bld) 8.6 % Normal 5.0-12.0 [facility] Comment on above: Performed By: #### L [id number] ####[facility] ([facility])[address] [place] [address] Neutrophils (Bld) [#/Vol] 4.24 10*3/uL Normal 1.60-7.60 [facility] Comment on above: Performed By: #### L [id number] ####[facility] ([facility])[address] [place] [address] Neutrophils/100 WBC (Bld) 67.8 % Normal 40.0-72.0 [facility] Comment on above: Performed By: #### L [id number] ####[facility] ([facility])[address] [place] [address] NRBC (PER 100 WBCS) BY AUTOMATED COUNT 0.0 % Normal 0 [facility] Comment on above: Performed By: #### L [id number] ####[facility] ([facility])[address] [place] [address] PLATELETS (10*3/UL) IN BLOOD AUTOMATED COUNT 268 10*3/uL Normal 150-400 [facility] Comment on above: Performed By: #### L [id number] ####[facility] ([facility])[address] [place] [address] RBC (Bld) [#/Vol] 2.78 10*6/uL Low 3.80-5.00 [facility] Comment on above: Performed By: #### L [id number] ####[facility] ([facility])[address] [place] [address] WBC (Bld) [#/Vol] 6.26 10*3/uL Normal 4.00-10.60 [facility] [place] Comment on above: Performed By: #### L [id number] ####[facility] ([facility])[address] [place] [address] CONSULTon 07-29-2023 CONSULT ----- ----- Attestation signed [...] 07/28/23, we discussed potential need to start CLAM T[employer]ER given hypervolemia and uremic symptoms (N/v, confusion [...] gastric bypass surgery who initially presented to [facility] with concerns for worsening lower extremity edema, after gaining 50 pounds within past week. Patient was evaluated by PCP who increased Bumex dose from 1 mg TID to 3 mg TID but patient had no improvement in symptoms. On presentation to [place], patient's creatinine was 4.55 (baseline 1.8-2), phosphorus 11.2, potassium 5.7, magnesium 1.8, hemoglobin 9.2 and BUN 122. Patient was initiated on Bumex drip but developed hypotension and was changed to IV pushes. Patient was subsequently transferred to [facility] Upon assessment at [facility], patient has downtrend in Cr [...] (L) 07/29 (more content not included)... Normal [facility] CONSULT ----- ----- Attestation signed by Seun Martinez MD at 07/29/2023 3:45 PM I personally saw and examined the patient on the same date of service as resident/fellow Dr Lowery. I discussed the findings and therapeutic plan with the resident/fellow Dr Lowery. I agree with the documentation, except for any edits/updates below. Teaching Physician's Revisions: Seun Martinez MD, MPH, [facility], [facility], [facility] Interventional Cardiology Pager Email: [email or web address] ----- Cardiology Consult Note Reason for Consult: Bilaterally worsening lower extremity edema with orthopnea, concerning for heart failure exacerbation. HPI: Mabel Moser is a 63 y.o. female with PMH of alpha-1 antitrypsin carrier, HFpEF, CKD 3A, HTN, GERD, hypothyroidism, CVA, seizures, DVT (on Eliquis at home), morbid obesity s/p gastric bypass surgery who initially presented to [facility] with concerns for bilateral worsening lower [...] duplex ultrasound. She was then transferred to [facility]. At [facility], her creatinine did improved slightly to 3.64, hemoglobin 8.5, troponin 0.01, BNP 265. She was initiated on IV Lasix 80 mg 3 times daily. Patient tells me that she did have a TTE performed at [facility] 2 months back but there [...] in the past she was admitted to [facility] in 2019 with fluid overload and [...] unknown: Yes (more content not included)... Normal [facility] CREATININE, URINE, RANDOMon 07-29-2023 Creatinine (U) [Mass/Vol] 17.0 mg/dL Low 26-299 [facility] Comment on above: Performed By: #### L [id number] #### [facility] ([facility]) [address] [place] [address] HEMOGLOBIN A1Con 07-29-2023 Glucose [Mass/Vol] 82 mg/dL Normal [facility] Comment on above: Performed By: #### L [id number] #### [facility] ([facility]) [address] [place] [address] HbA1c (Bld) [Mass fraction] 4.5 % Normal 4.0-6.0 [facility] Comment on above: Performed By: #### L [id number] #### [facility] ([facility]) [address] [place] [address] HEPATIC FUNCTION PANELon Albumin [Mass/Vol] 3.3 g/dL Low 3.5-5.7 [facility] Comment on above: Performed By: #### L [id number] ####[facility] ([facility])[address] [place] [address] Performed By: #### L [id number] #### [facility] ([facility]) [address] [place] [address] ALP [Catalytic activity/Vol] 150 U/L High 34-104 [facility] Comment on above: Performed By: #### L [id number] ####[facility] ([facility])[address] [place] [address] ALT [Catalytic activity/Vol] 19 U/L Normal 7-52 [facility] Comment on above: Performed By: #### L [id number] ####[facility] ([facility])[address] [place] [address] AST [Catalytic activity/Vol] 24 U/L Normal 13-39 [facility] Comment on above: Performed By: #### L [id number] ####[facility] [place] [address] Bilirubin [Mass/Vol] 0.3 mg/dL Normal 0.3-1.0 [facility] Comment on above: Performed By: #### L [id number] ####[facility] ([facility])[address] [place] [address] Magnesium [Mass/Vol] 0.1 mg/dL Normal 0-0.2 [facility] Comment on above: Performed By: #### L [id number] ####[facility] ([facility])[address] [place] [address] Protein [Mass/Vol] 5.6 g/dL Low 6.0-8.3 [facility] Comment on above: Performed By: #### L [id number] ####[facility] [place] [address] LIPID PANELon 07-29-2023 CHOL/HDL 2.0 mg/dL Normal [facility] Comment on above: Performed By: #### L [id number] ####[facility] [place] [address] Cholesterol [Mass/Vol] 155 mg/dL Normal 120-200 [facility] Comment on above: Performed By: #### L [id number] ####[facility] [place] [address] Magnesium [Mass/Vol] 46 mg/dL Normal 40-149 [facility] Comment on above: Result Comment: TRIG LYCERIDE REFERENCE RANGE: 20 YEARS AND OLDER CARDIOVASCULAR RISK LESS THAN 150 mg/dL LOW RISK 150 TO 199 mg/dL BORDERLINE RISK 200 mg/dL AND GREATER HIGH RISK Performed By: #### L [id number] ####[facility] ([facility])[address] [place] [address] Magnesium [Mass/Vol] 67 mg/dL Normal 0-160 [facility] Comment on above: Performed By: #### L [id number] ####[facility] ([facility])[address] [place] [address] Magnesium [Mass/Vol] 79 mg/dL Normal 23-92 [facility] Comment on above: Performed By: #### L [id number] ####[facility] ([facility])[address] [place] [address] NON HDL CHOL. (LDL+VLDL) 76 Normal [facility] Comment on above: Performed By: #### L [id number] ####[facility] ([facility])[address] [place] [address] TOTAL VLDL-C 9 mg/dL Normal 0-40 [facility] Comment on above: Performed By: #### L [id number] ####[facility] ([facility])[address] [place] [address] MAGNESIUMon 07-29-2023 Magnesium [Mass/Vol] 2.0 mg/dL Normal 1.9-2.7 [facility] Comment on above: Performed By: #### L [id number] ####[facility] ([facility])[address] [place] [address] PROTIME-INRon 07-29-2023 INR IN PPP BY COAGULATION ASSAY 1.15 High 0.90-1.10 [facility] Comment on above: Result Comment: ACCC [...] RANGE. CHEST 1995;108:[id number]. Performed By: #### L [id number] #### [facility] ([facility]) [address] [place] [address] PROTHROMBIN TIME (PT) IN PPP BY COAGULATION ASSAY 14.8 Seconds Normal 12.3-14.8 [facility] Comment on above: Performed By: #### L [id number] #### [facility] ([facility]) [address] [place] [address] TSH3 REFLEX TO FT4on 07-29- 024 THYROTROPIN (MIU/L) IN SER/PLAS BY DETECTION LIMIT <= 0.05 MIU/L 1.50 mIU/L Normal 0.34-5.60 [facility] Comment on above: Performed By: #### L [id number] #### [facility] ([facility]) [address] [place] [address] B-TYPE NATRIURETIC PEPTIDEon 07-28-2023 Natriuretic peptide B (Bld) [Mass/Vol] 265 pg/mL High 0-100 [facility] Comment on above: Performed By: #### L [id number] #### [facility] ([facility]) [address] [place] [address] BASIC METABOLIC PANELon Anion gap [Moles/Vol] 15 mmol/L Normal 7-20 [facility] Comment on above: Performed By: #### L [id number] ####[facility] ([facility])[address] [place] [address] Calcium [Mass/Vol] 7.3 mg/dL Low 8.6-10.3 [facility] Comment on above: Performed By: #### L [id number] ####[facility] ([facility])[address] [place] [address] Chloride [Moles/Vol] 105 mmol/L Normal 98-107 [facility] Comment on above: Performed By: #### L [id number] ####[facility] ([facility])[address] [place] [address] CO2 [Moles/Vol] 20 mmol/L Low 21-31 [facility] Comment on above: Performed By: #### L [id number] ####[facility] ([facility])[address] [place] [address] Creatinine [Mass/Vol] 3.64 mg/dL High 0.60-1.20 [facility] Comment on above: Performed By: #### L [id number] ####[facility] ([facility])[address] [place] [address] GLOMERULAR FILTRATION RATE ML/MIN/1.73 SQ M.PREDICTED 13.6 mL/min/1.73m*2 Low >60.0 [facility] Comment on above: Result Comment: The [facility]???s estimated glomerular filtration rate (eGFR) will [...] of individuals. Performed By: #### L [id number] ####[facility] ([facility])[address] [place] [address] Glucose [Mass/Vol] 80 mg/dL Normal 70-100 [facility] Comment on above: Performed By: #### L [id number] ####[facility] ([facility])[address] [place] [address] Potassium [Moles/Vol] 5.7 mmol/L High 3.5-5.1 [facility] Comment on above: Performed By: #### L [id number] ####[facility] ([facility])[address] [place] [address] Sodium [Moles/Vol] 134 mmol/L Low 136-145 [facility] Comment on above: Performed By: #### L [id number] ####[facility] [place] [address] Urea nitrogen [Mass/Vol] 109 mg/dL High 7-25 [facility] Comment on above: Performed By: #### L [id number] ####[facility] [place] [address] UREA NITROGEN/CREATININE (MASS RATIO) IN SER/PLAS 29.9 Normal [facility] Comment on above: Performed By: #### L [id number] ####[facility] ([facility])[address] [place] [address] CBC WITH AUTO DIFFERENTIALon 07-28-2023 Basophils (Bld) [#/Vol] 0.02 10*3/uL Normal 0.00-0.20 [facility] Comment on above: Performed By: #### L [id number] ####[facility] [place] [address] Basophils/100 WBC (Bld) 0.3 % Normal 0.0-1.0 [facility] Comment on above: Performed By: #### L [id number] ####[facility] ([facility])[address] [place] [address] Eosinophils (Bld) [#/Vol] 0.07 10*3/uL Normal 0.00-0.50 [facility] Comment on above: Performed By: #### L [id number] ####[facility] [place] [address] Eosinophils/100 WBC (Bld) 1.1 % Normal 0.0-6.0 [facility] Comment on above: Performed By: #### L [id number] ####[facility] [place] [address] Erythrocyte distribution width (RBC) [Ratio] 13.5 % Normal 11.5-15.0 [facility] Comment on above: Performed By: #### L [id number] ####[facility] [place] [address] ERYTHROCYTE MEAN CORPUSCULAR HEMOGLOBIN CONCENTRATION (G/DL) BY AUTOMATED 31.0 g/dL Low 32.0-35.0 [facility] Comment on above: Performed By: #### L [id number] ####[facility] ([facility])[address] [place] [address] Hematocrit (Bld) [Volume fraction] 27.4 % Low 36.0-48.0 [facility] Comment on above: Performed By: #### L [id number] ####[facility] [place] [address] Hemoglobin (Bld) [Mass/Vol] 8.5 g/dL Low 12.0-15.0 [facility] Comment on above: Performed By: #### L [id number] ####[facility] ([facility])[address] [place] [address] Immature granulocytes (Bld) [#/Vol] 0.05 10*3/uL Normal 0.00-0.20 [facility] Comment on above: Performed By: #### L [id number] ####[facility] ([facility])[address] [place] [address] Immature granulocytes/100 WBC (Bld) 0.8 % Normal 0.0-1.0 [facility] Comment on above: Performed By: #### L [id number] ####[facility] ([facility])[address] [place] [address] Lymphocytes (Bld) [#/Vol] 0.83 10*3/uL Low 1.20-4.00 [facility] Comment on above: Performed By: #### L [id number] ####[facility] ([facility])[address] [place] [address] Lymphocytes/100 WBC (Bld) 13.0 % Low 20.0-45.0 [facility] Comment on above: Performed By: #### L [id number] ####[facility] ([facility])[address] [place] [address] MCH (RBC) [Entitic mass] 30.7 pg Normal 27.0-33.0 [facility] Comment on above: Performed By: #### L [id number] ####[facility] [place], [place] [address] MCV (RBC) [Entitic vol] 98.9 fL High 82.0-98.0 [facility] Comment on above: Performed By: #### L [id number] ####[facility] ([facility])[address] [place], [place] [address] Monocytes (Bld) [#/Vol] 0.45 10*3/uL Normal 0.10-1.00 [facility] Comment on above: Performed By: #### L [id number] ####[facility] ([facility])[address] [place] [address] Monocytes/100 WBC (Bld) 7.0 % Normal 5.0-12.0 [facility] Comment on above: Performed By: #### L [id number] ####[facility] ([facility])[address] [place], [place] [address] Neutrophils (Bld) [#/Vol] 4.97 10*3/uL Normal 1.60-7.60 [facility] Comment on above: Performed By: #### L [id number] ####[facility] ([facility])[address] [place] [address] Neutrophils/100 WBC (Bld) 77.8 % High 40.0-72.0 [facility] Comment on above: Performed By: #### L [id number] ####[facility] ([facility])[address] [place] [address] NRBC (PER 100 WBCS) BY AUTOMATED COUNT 0.0 % Normal 0 [facility] Comment on above: Performed By: #### L [id number] ####[facility] ([facility])[address] [place] [address] PLATELETS (10*3/UL) IN BLOOD AUTOMATED COUNT 245 10*3/uL Normal 150-400 [facility] Comment on above: Performed By: #### L [id number] ####[facility] ([facility])[address] [place] [address] RBC (Bld) [#/Vol] 2.77 10*6/uL Low 3.80-5.00 [facility] Comment on above: Performed By: #### L [id number] ####[facility] ([facility])[address] [place] [address] WBC (Bld) [#/Vol] 6.39 10*3/uL Normal 4.00-10.60 [facility] Comment on above: Performed By: #### L [id number] ####[facility] ([facility])[address] [place] [address] FERRITINon 07-28-2023 FERRITIN (NG/ML) IN SER/PLAS 53.0 ng/mL Normal 11.0-307.0 [facility] Comment on above: Performed By: #### L [id number] #### [facility] ([facility]) [address] [place] [address] FOLATEon 07-28-2023 FOLATE (NG/ML) IN SER/PLAS 8.99 ng/mL Normal 6.6-1000 [facility] Comment on above: Performed By: #### L [id number] ####[facility] ([facility])[address] [place] [address] IRON AND TIBCon 07-28-2023 IRON (UG/DL) IN SER/PLAS 53 ug/dL Normal 50-212 [facility] Comment on above: Performed By: #### L [id number] ####[facility] ([facility])[address] [place] [address] IRON BINDING CAPACITY (UG/DL) IN SER/PLAS 285 ug/dL Normal 250-450 [facility] Comment on above: Performed By: #### L [id number] ####[facility] ([facility])[address] [place] [address] IRON BINDING CAPACITY.UNSATURATED (UG/DL) IN SER/PLAS 232.0 ug/dL Normal 155.0-355.0 [facility] Comment on above: Performed By: #### L [id number] ####[facility] ([facility])[address] [place] [address] IRON SATURATION (%) IN SER/PLAS 19 % Low 20-50 [facility] Comment on above: Performed By: #### L [id number] ####[facility] ([facility])[address] [place] [address] MAGNESIUMon 07-28-2023 Magnesium [Mass/Vol] 1.6 mg/dL Low 1.9-2.7 [facility] Comment on above: Performed By: #### L [id number] ####[facility] ([facility])[address] [place] [address] RETICULOCYTE PANELon 024 HEMOGLOBIN (PG) IN RETICULOCYTES 33.8 pg Normal 28.0-36.0 [facility] Comment on above: Performed By: #### L [id number] ####[facility] ([facility])[address] [place] [address] IMMATURE RETICULOCYTE FRACTION (%) 8.5 % Normal 2-16 [facility] Comment on above: Performed By: #### L [id number] ####[facility] ([facility])[address] [place] [address] RETICULOCYTES (10*6/UL) IN BLOOD 0.0535 10*6/uL Normal 0.0250-0.100 0 [facility] Comment on above: Performed By: #### L [id number] ####[facility] ([facility])[address] [place] [address] Reticulocytes/100 RBC (Bld) 1.96 % High 0.50-1.80 [facility] Comment on above: Performed By: #### L [id number] ####[facility] ([facility])[address] [place] [address] TROPONIN Ion 07-28-2023 Troponin I.cardiac [Mass/Vol] 0.01 ng/mL Normal 0.00-0.04 [facility] Comment on above: Performed By: #### L [id number] #### [facility] ([facility]) [address] [place] [address] URINALYSIS MICROSCOPIC WITH REFLEX CULTUREon 07-28-2023 CASTS IN URINE Normal [facility] Comment on above: Performed By: #### L [id number] #### [facility] ([facility]) [address] [place] [address] CRYSTALS IN URINE Normal [facility] Comment on above: Performed By: #### L [id number] #### [facility] ([facility]) [address] [place] [address] MUCUS (#/HPF) IN URINE SEDIMENT Occasional Normal None Seen, Occasional, Few [facility] Comment on above: Performed By: #### L [id number] #### [facility] ([facility]) [address] [place] [address] OTHER MICROSCOPIC ELEMENTS Normal [facility] Comment on above: Performed By: #### L [id number] #### [facility] ([facility]) [address] [place] [address] RBC (#/HPF) IN URINE SEDIMENT None Seen Normal None Seen [facility] Comment on above: Performed By: #### L [id number] #### [facility] ([facility]) [address] [place] [address] SQUAMOUS EPITHELIAL CELLS (#/HPF) IN URINE SEDIMENT Few Abnormal None Seen, Occasional [facility] Comment on above: Performed By: #### L [id number] #### [facility] ([facility]) [address] [place] [address] WBC (LEUKOCYTE) (#/HPF) IN URINE SEDIMENT 0-2 Abnormal None Seen [facility] Comment on above: Performed By: #### L [id number] #### [facility] [address] [place] [address] URINALYSIS WITH REFLEX CULTU REon 07-28-2023 BILIRUBIN, TOTAL PRESENCE IN URINE Negative Normal Negative [facility] Comment on above: Performed By: #### L [id number] ####[facility] ([facility])[address] [place] [address] Clarity (U) Clear Normal Clear [facility] Comment on above: Performed By: #### L [id number] ####[facility] ([facility])[address] [place] [address] Color (U) Straw Abnormal Yellow [facility] Comment on above: Performed By: #### L [id number] ####[facility] ([facility])[address] [place] [address] Glucose (U) [Mass/Vol] Negative Normal Negative [facility] Comment on above: Performed By: #### L [id number] ####[facility] ([facility])[address] [place] [address] HEMOGLOBIN PRESENCE IN URINE Small Abnormal Negative [facility] Comment on above: Performed By: #### L [id number] ####[facility] ([facility])[address] [place] [address] Ketones Ql (U) Negative Normal Negative [facility] Comment on above: Performed By: #### L [id number] ####[facility] ([facility])[address] [place] [address] LEUKOCYTE ESTERASE PRESENCE IN URINE BY TEST STRIP Negative Normal Negative [facility] Comment on above: Performed By: #### L [id number] ####[facility] ([facility])[address] [place] [address] NITRITE PRESENCE IN URINE Negative Normal Negative [facility] Comment on above: Performed By: #### L [id number] ####[facility] ([facility])[address] [place] [address] pH (U) 5.0 [pH] Normal 5.0-8.0 [facility] Comment on above: Performed By: #### L [id number] ####[facility] ([facility])[address] [place] [address] Protein (U) [Mass/Vol] Negative Normal Negative [facility] Comment on above: Performed By: #### L [id number] ####[facility] ([facility])[address] [place] [address] Specific gravity (U) [Rel density] 1.011 Low 1.015-1.020 [facility] Comment on above: Performed By: #### L [id number] ####[facility] ([facility])[address] [place] [address] VENOUS BLOOD GAS WITH IONIZE D CALCIUMon 07-28-2023 Base excess Calc (BldV) [Moles/Vol] -7.1000 mmol/L Normal [facility] Comment on above: Performed By: #### L [id number] #### [facility] ([facility]) [address] [place] [address] CALCIUM IONIZED (MMOL/L) IN BLOOD 1.03 mmol/L Low 1.15-1.33 [facility] Comment on above: Performed By: #### L [id number] #### [facility] ([facility]) [address] [place] [address] CO2 (BldV) [Partial pressure] 41 mm[Hg] Normal 40-50 [facility] Comment on above: Performed By: #### L [id number] #### [facility] ([facility]) [address] [place] [address] HCO3 (Bld) [Moles/Vol] 19.3 mmol/L Normal U [facility] Comment on above: Performed By: #### L [id number] #### [facility] ([facility]) [address] [place] [address] Oxygen (BldV) [Partial pressure] 42 mm[Hg] Normal 35-45 [facility] Comment on above: Performed By: #### L [id number] #### [facility] ([facility]) [address] [place] [address] OXYGEN SATURATION (%) IN VENOUS BLOOD 70.5 % Normal 65.0-75.0 [facility] Comment on above: Performed By: #### L [id number] #### [facility] ([facility]) [address] [place] [address] PH OF VENOUS BLOOD 7.28 Low 7.31-7.41 [facility] Comment on above: Performed By: #### L [id number] #### [facility] ([facility]) [address] [place] [address] Office Visiton 07-13-2023 Follow-up visit [id number] Loren Moser 1960 F Date Provider Department Center 07/13/2023 BENJIE LERMA YVONNE [place] Family History Family history unknown: Yes Level of Service:17567 [place] OFFICE/OUTPATIENT ESTABLISHED LOW MDM 20 MIN Normal [facility] Absolute reticulocyte countO rdered By: [place] on 07-03-2023 Reticulocytes (Bld) [#/Vol] 0.039 10*6/uL 0.024-0.084 [facility] Basic Metabolic Panelon Creatinine Clr Calc Pharmacy 25.88 [facility] Comment on above: Performed By: #### V [id number], MG, BMP, JOSE, FE and TIBC, RETIC #### [facility] [address] [id number] [place] GFR/1.73 sq M.predicted MDRD (S/P/Bld) [Vol rate/Area] 23.348 mL/min/{1.73_m2} [facility] Comment on above: Performed By: #### V [id number], MG, BMP, JOSE, FE and TIBC, RETIC #### [facility] [address] [place] [address] [place] Calcium [Mass/volume] in Ser um or PlasmaOrdered By: Jim Randhawa on 07-03-2023 Calcium [Mass/Vol] 8.3 mg/dL Low 8.6-10.3 [facility] Comment on above: Performed By: #### V [id number], MG, BMP, JOSE, FE and TIBC, RETIC #### [facility] [address] [place] [address] Carbon dioxide, total [Moles /volume] in Serum or PlasmaOrdered By: Jim Randhawa on 07-03-2023 CO2 [Moles/Vol] 20.4 mmol/L Low 21.0-31.0 [facility] Comment on above: Performed By: #### V [id number], MG, BMP, JOSE, FE and TIBC, RETIC #### [facility] [address] [place] [address] Chloride [Moles/volume] in S andrea or PlasmaOrdered By: Jim Randhawa on 07-03-2023 Chloride [Moles/Vol] 106 mmol/L Normal 98-107 [facility] Comment on above: Performed By: #### V [id number], MG, BMP, JOSE, FE and TIBC, RETIC #### [facility] [address] [place] [address] Creatinine [Mass/volume] in Serum or PlasmaOrdered By: Jim Randhawa on 07-03-2023 Creatinine [Mass/Vol] 2.32 mg/dL High 0.60-1.20 [facility] Comment on above: Performed By: #### V [id number], MG, BMP, JOSE, FE and TIBC, RETIC #### [facility] [address] [place] [address] ECH echo transthoracicon ECH echo transthoracic [facility] [place] [address] Echocardiogram Signed Patient: Mabel Moser MR#: [id number] : 1960 Acct:[id number] Age/Sex: 63 / F ADM Date: 06/29/23 Loc: Room: [address] [place] [address] Type: DIS IN Attending Dr: Jim Randhawa DO Ordering Provider: Jim J Randhawa, DO Date of Service: 07/02/2301/16/859 [facility] echo transthoracic: swelling Copies to: MD Jim Meyer, Weight: 189 lb Performed By: Judah Pinto [...] FS: 40.8 % Ao root area: 7.8 [id number] ap4: 8.4 cm TAPSE: 2.6 cm EDV(Teich): [...] By: Benjie Leach MD 07/03/23 1445 Normal [facility] Ferritin [Mass/volume] in Se rum or PlasmaOrdered By: Los Grissom on 07-03-2023 Ferritin [Mass/Vol] 71.9 ng/mL Normal 11.0-306.8 [facility] Comment on above: Performed By: #### V [id number], MG, BMP, JOSE, FE and TIBC, RETIC #### [facility] [address] Folate [Mass/volume] in Seru m or PlasmaOrdered By: Los Grissom on 07-03-2023 Folate [Mass/Vol] 11.1 ng/mL >5.9 [facility] Comment on above: Folate reference ran ge: >5.9 ng/mlThe WHO technical consultation on folate and vitamin [id number] has determined that folate concentrations lessthan 4 ng/ml are considered deficient. Glucose [Mass/volume] in Ser um or PlasmaOrdered By: Jim Randhawa on 07-03-2023 Glucose [Mass/Vol] 99 mg/dL Normal 70-100 [facility] Comment on above: ADA recommended refe rence rangeRandom Glucose Reference Range is dependent on time and content of last meal. Glucose of more than 200 mg/dL in a nonstressed, ambulatory subject supports the diagnosis of Diabetes Mellitus. Result Comment: [place] Glucose Reference Range is dependent on time and content of last meal. Glucose of more than 200 mg/dL in a nonstressed, ambulatory subject supports the diagnosis of Diabetes Mellitus. ADA recommended reference range Performed By: #### V [id number], MG, BMP, JOSE, FE and TIBC, RETIC #### [facility] [address] [place] [address] [place] Iron [Mass/volume] in Serum or PlasmaOrdered By: Los Grissom on 07-03-2023 Iron [Mass/Vol] 59 ug/dL Normal 50-212 [facility] Comment on above: Performed By: #### V [id number], MG, BMP, JOSE, FE and TIBC, RETIC #### [facility] [address] Iron and TIBC Profileon % Iron Saturation 22.8 % Normal 20-50 [facility] Comment on above: Performed By: #### V [id number], MG, BMP, JOSE, FE and TIBC, RETIC #### [facility] [address] Total Iron Binding Capacity 259 ug/dL Normal 255-450 [facility] Comment on above: Performed By: #### V [id number], MG, BMP, JOSE, FE and TIBC, RETIC #### [facility] [address] Iron binding capacity [Mass/ volume] in Serum or PlasmaOrdered By: Los Grissom on 07-03-2023 Iron binding capacity [Mass/Vol] 259 ug/dL 255-450 [facility] Iron saturation [Mass Fracti on] in Serum or PlasmaOrdered By: Los Grissom on 07-03-2023 Iron saturation [Mass fraction] 22.8 % 20-50 [facility] Magnesium [Mass/volume] in S andrea or PlasmaOrdered By: Jim Randhawa on 07-03-2023 Magnesium [Mass/Vol] 2.0 mg/dL Normal 1.9-2.7 [facility] Comment on above: Performed By: #### V [id number], MG, BMP, JOSE, FE and TIBC, RETIC #### [facility] [address] No Panel InformationOrdered By: Jim Randhawa on 07-03-2023 Estimated GFR (CKD-EPI) 23.348 mL/Min [facility] Creatinine Clearance (Chem 25.88 [facility] Potassium [Moles/volume] in Serum or PlasmaOrdered By: Jim Randhawa on 07-03-2023 Potassium [Moles/Vol] 3.9 mmol/L Normal 3.5-5.1 [facility] Comment on above: Performed By: #### V [id number], MG, BMP, JOSE, FE and TIBC, RETIC #### [facility] [address] [place] [address] [place] Reticulocyte Counton 024 Reticulocyte Number 0.039 10*6/uL Normal 0.024-0.084 [facility] Comment on above: Result Comment: PERF ORMED BY: [place] [address] PATHOLOGIST [employer]Y BOAT OPERATOR TANNER GAVIN M.D. Performed By: #### V [id number], MG, BMP, JOSE, FE and TIBC, RETIC #### [address] Reticulocyte Percent 1.5 % Normal 0.5-1.5 [facility] Comment on above: Performed By: #### V [id number], MG, BMP, JOSE, FE and TIBC, RETIC #### [facility] [address] [place] [address] [place] Reticulocytes/100 RBC Auto ( Bld)Ordered By: Los Grissom on 07-03-2023 Reticulocytes/100 RBC (Bld) 1.5 % 0.5-1.5 [facility] Serum or plasma anion gap de terminationOrdered By: Jim Randhawa on 07-03-2023 Anion gap [Moles/Vol] 11.5 mmol/L Normal 6.0-15.0 [facility] Comment on above: Performed By: #### V [id number], MG, BMP, JOSE, FE and TIBC, RETIC #### [facility] [address] [place] [address] [place] Sodium [Moles/volume] in Ser um or PlasmaOrdered By: Jim Randhawa on 07-03-2023 Sodium [Moles/Vol] 134 mmol/L Low 136-145 [facility] Comment on above: Performed By: #### V [id number], MG, BMP, JSOE, FE and TIBC, RETIC #### [address] Transferrin [Mass/volume] in Serum or PlasmaOrdered By: Los Grissom on 07-03-2023 Transferrin [Mass/Vol] 185 mg/dL Low 203-362 [facility] Comment on above: Performed By: #### V [id number], MG, BMP, JOSE, FE and TIBC, RETIC #### [address] Urea nitrogen [Mass/volume] in Serum or PlasmaOrdered By: Jim Randhawa on 07-03-2023 Urea nitrogen [Mass/Vol] 95 mg/dL High 7-25 [facility] Comment on above: Performed By: #### V [id number], MG, BMP, JOSE, FE and TIBC, RETIC #### [address] Vit. B12/Folate Profileon Folate 11.1 ng/mL Normal >5.9 [facility] Comment on above: Result Comment: Sandra te reference range: >5.9 ng/ml The WHO technical consultation on folate and vitamin b12 deficiencies has determined that folate concentrations less than 4 ng/ml are considered deficient. PERFORMED BY: [place] [address] PATHOLOGIST BUY BOAT OPERATOR TANNER GAVIN M.D. Performed By: #### V [id number], MG, BMP, JOSE, FE and TIBC, RETIC #### [address] Vitamin B12 ser/plasOrdered By: Los Grissom on 07-03-2023 Cobalamin (Vitamin B12) [Mass/Vol] 3564 pg/mL High 180-914 [facility] Comment on above: Performed By: #### V [id number], MG, BMP, JOSE, FE and TIBC, RETIC #### [address] Basic Metabolic Panelon Anion gap [Moles/Vol] 11.0 mmol/L Normal 6.0-15.0 [facility] Comment on above: Performed By: #### V [id number], MG, BMP, JOSE, FE and TIBC, RETIC #### [facility] [address] Calcium [Mass/Vol] 8.4 mg/dL Low 8.6-10.3 [facility] Comment on above: Performed By: #### V [id number], MG, BMP, JOSE, FE and TIBC, RETIC #### [facility] [address] Chloride [Moles/Vol] 104 mmol/L Normal 98-107 [facility] Comment on above: Performed By: #### V [id number], MG, BMP, JOSE, FE and TIBC, RETIC #### [address] CO2 [Moles/Vol] 20.2 mmol/L Low 21.0-31.0 [facility] Comment on above: Performed By: #### V [id number], MG, BMP, JOSE, FE and TIBC, RETIC #### [address] Creatinine [Mass/Vol] 2.31 mg/dL High 0.60-1.20 [facility] Comment on above: Performed By: #### V [id number], MG, BMP, JOSE, FE and TIBC, RETIC #### [address] Creatinine Clr Calc Pharmacy 26.22 [facility] Comment on above: Performed By: #### V [id number], MG, BMP, JOSE, FE and TIBC, RETIC #### [address] GFR/1.73 sq M.predicted MDRD (S/P/Bld) [Vol rate/Area] 23.469 mL/min/{1.73_m2} [facility] Comment on above: Performed By: #### V [id number], MG, BMP, JOSE, FE and TIBC, RETIC #### [address] Glucose [Mass/Vol] 89 mg/dL Normal 70-100 [facility] Comment on above: Result Comment: [facility] Glucose Reference Range is dependent on time and content of last meal. Glucose of more than 200 mg/dL in a nonstressed, ambulatory subject supports the diagnosis of Diabetes Mellitus. ADA recommended reference range Performed By: #### V [id number], MG, BMP, JOSE, FE and TIBC, RETIC #### [address] Potassium [Moles/Vol] 4.2 mmol/L Normal 3.5-5.1 [facility] Comment on above: Performed By: #### V [id number], MG, BMP, JOSE, FE and TIBC, RETIC #### [address] Sodium [Moles/Vol] 131 mmol/L Low 136-145 [facility] Comment on above: Performed By: #### V [id number], MG, BMP, JOSE, FE and TIBC, RETIC #### [address] Urea nitrogen [Mass/Vol] 100 mg/dL High 7-25 [facility] Comment on above: Performed By: #### V [id number], MG, BMP, JOSE, FE and TIBC, RETIC #### [address] Erythrocyte distribution wid th Auto (RBC) [Ratio]Ordered By: Jim Randhawa on 07-02-2023 Erythrocyte distribution width (RBC) [Ratio] 14.2 % 11.9-15.3 [facility] Hematocrit Auto (Bld) [Volum e fraction]Ordered By: Jim Randhawa on 07-02-2023 Hematocrit (Bld) [Volume fraction] 25.0 % 34.0-46.4 [facility] Hemoglobin [Mass/volume] in BloodOrdered By: Jim Randhawa on 07-02-2023 Hemoglobin (Bld) [Mass/Vol] 8.4 g/dL 11.8-15.4 [facility] Hemogram CBC Without Diffon 07-02-2023 Erythrocyte distribution width (RBC) [Ratio] 14.2 % Normal 11.9-15.3 [facility] Comment on above: Performed By: #### V [id number], MG, BMP, JOSE, FE and TIBC, RETIC #### [address] Hematocrit (Bld) [Volume fraction] 25.0 % Low 34.0-46.4 [facility] Comment on above: Performed By: #### V [id number], MG, BMP, JOES, FE and TIBC, RETIC #### [address] Hemoglobin (Bld) [Mass/Vol] 8.4 g/dL Low 11.8-15.4 [facility] Comment on above: Performed By: #### V [id number], MG, BMP, JOSE, FE and TIBC, RETIC #### [address] MCH (RBC) [Entitic mass] 32.3 pg Normal 24.7-34.3 [facility] Comment on above: Performed By: #### V [id number], MG, BMP, JOSE, FE and TIBC, RETIC #### [address] MCV (RBC) [Entitic vol] 96.6 fL Normal 80-100 [facility] Comment on above: Performed By: #### V [id number], MG, BMP, JOSE, FE and TIBC, RETIC #### [address] Mean Corpuscular HGB Conc 33.4 g/dL Normal 32.0-35.0 [facility] Comment on above: Performed By: #### V [id number], MG, BMP, JOSE, FE and TIBC, RETIC #### [address] Platelet mean volume (Bld) [Entitic vol] 7.7 fL Normal 6.3-10.7 [facility] Comment on above: Result Comment: PERF ORMED BY: [place] [address] PATHOLOGIST [employer] OPERATOR TANNER GAVIN M.D. Performed By: #### V [id number], MG, BMP, JOSE, FE and TIBC, RETIC #### [address] Platelets (Bld) [#/Vol] 217 10*3/uL Normal 150-450 [facility] Comment on above: Performed By: #### V [id number], MG, BMP, JOSE, FE and TIBC, RETIC #### [address] RBC (Bld) [#/Vol] 2.59 10*6/uL Low 3.60-5.00 [facility] Comment on above: Performed By: #### V [id number], MG, BMP, JOSE, FE and TIBC, RETIC #### [address] WBC (Bld) [#/Vol] 6.1 10*3/uL Normal 3.8-11.6 [facility] Comment on above: Performed By: #### V [id number], MG, BMP, JOSE, FE and TIBC, RETIC #### [address] Leukocytes [#/volume] correc nicol for nucleated erythrocytes in Blood by Automated counOrdered By: Jim Randhawa on 07-02-2023 WBC corrected for nucl RBC Auto (Bld) [#/Vol] 6.1 10*3/uL 3.8-11.6 [facility] MCH Auto (RBC) [Entitic mass ]Ordered By: Jim Randhawa on 07-02-2023 MCH (RBC) [Entitic mass] 32.3 pg 24.7-34.3 [facility] MCHC Auto (RBC) [Mass/Vol]Or dered By: Jim Randhawa on 07-02-2023 MCHC (RBC) [Mass/Vol] 33.4 g/dL 32.0-35.0 [facility] MCV Auto (RBC) [Entitic vol] Ordered By: Jim Randhawa on 07-02-2023 MCV (RBC) [Entitic vol] 96.6 fL 80-100 [facility] Magnesiumon 07-02-2023 Magnesium [Mass/Vol] 2.1 mg/dL Normal 1.9-2.7 [facility] Comment on above: Result Comment: PERF ORMED BY: [place] [address] PATHOLOGIST [employer] OPERATOR TANNER GAVIN M.D. Performed By: #### V [id number], MG, BMP, JOSE, FE and TIBC, RETIC #### [facility] [address] Platelet mean volume Auto (B ld) [Entitic vol]Ordered By: Jim Randhawa on 07-02-2023 Platelet mean volume (Bld) [Entitic vol] 7.7 fL 6.3-10.7 [facility] Platelets Auto (Bld) [#/Vol] Ordered By: Jim Randhawa on 07-02-2023 Platelets (Bld) [#/Vol] 217 10*3/uL 150-450 [facility] RBC Auto (Bld) [#/Vol]Ordere d By: Jim Randhawa on 07-02-2023 RBC (Bld) [#/Vol] 2.59 10*6/uL 3.60-5.00 [facility] Basic Metabolic Panelon Anion gap [Moles/Vol] 11.9 mmol/L Normal 6.0-15.0 [facility] Comment on above: Order Comment: LINE DRAW Performed By: #### V [id number], MG, BMP, JOSE, FE and TIBC, RETIC #### [facility] [address] [place] [address] [place] Calcium [Mass/Vol] 8.9 mg/dL Normal 8.6-10.3 [facility] Comment on above: Order Comment: LINE DRAW Performed By: #### V [id number], MG, BMP, JOSE, FE and TIBC, RETIC #### [facility] [address] Chloride [Moles/Vol] 108 mmol/L High 98-107 [facility] Comment on above: Order Comment: LINE DRAW Performed By: #### V [id number], MG, BMP, JOSE, FE and TIBC, RETIC #### [facility] [address] CO2 [Moles/Vol] 18.5 mmol/L Low 21.0-31.0 [facility] Comment on above: Order Comment: LINE DRAW Performed By: #### V [id number], MG, BMP, JOSE, FE and TIBC, RETIC #### [address] Creatinine [Mass/Vol] 2.63 mg/dL Significan t change up 0.60-1.20 [facility] Comment on above: Order Comment: LINE DRAW Performed By: #### V [id number], MG, BMP, JOSE, FE and TIBC, RETIC #### [place] [address] [place] Creatinine Clr Calc Pharmacy 23.09 [facility] Comment on above: Order Comment: LINE DRAW Performed By: #### V [id number], MG, BMP, JOSE, FE and TIBC, RETIC #### [place] [address] [place] GFR/1.73 sq M.predicted MDRD (S/P/Bld) [Vol rate/Area] 20.085 mL/min/{1.73_m2} [facility] Comment on above: Order Comment: LINE DRAW Performed By: #### V [id number], MG, BMP, JOSE, FE and TIBC, RETIC #### [place] [address] [place] Glucose [Mass/Vol] 128 mg/dL High 70-100 [facility] Comment on above: Order Comment: LINE DRAW Result Comment: [facility] Glucose Reference Range is dependent on time and content of last meal. Glucose of more than 200 mg/dL in a nonstressed, ambulatory subject supports the diagnosis of Diabetes Mellitus. ADA recommended reference range Performed By: #### V [id number], MG, BMP, JOSE, FE and TIBC, RETIC #### [address] Potassium [Moles/Vol] 4.4 mmol/L Normal 3.5-5.1 [facility] Comment on above: Order Comment: LINE DRAW Performed By: #### V [id number], MG, BMP, JOSE, FE and TIBC, RETIC #### [address] Sodium [Moles/Vol] 134 mmol/L Low 136-145 [facility] Comment on above: Order Comment: LINE DRAW Performed By: #### V [id number], MG, BMP, JOSE, FE and TIBC, RETIC #### [address] Urea nitrogen [Mass/Vol] 104 mg/dL High 7-25 [facility] Comment on above: Order Comment: LINE DRAW Performed By: #### V [id number], MG, BMP, JOSE, FE and TIBC, RETIC #### [address] Magnesiumon 07-01-2023 Magnesium [Mass/Vol] 2.3 mg/dL Normal 1.9-2.7 [facility] Comment on above: Order Comment: LINE DRAW Result Comment: PERF ORMED BY: [place] [address] PATHOLOGIST [employer] OPERATOR TANNER GAVIN M.D. Performed By: #### V [id number], MG, BMP, JOSE, FE and TIBC, RETIC #### [address] Basic Metabolic Panelon Anion gap [Moles/Vol] 14.6 mmol/L Normal 6.0-15.0 [facility] Comment on above: Performed By: #### V [id number], MG, BMP, JOSE, FE and TIBC, RETIC #### [facility] [address] Calcium [Mass/Vol] 8.6 mg/dL Normal 8.6-10.3 [facility] Comment on above: Performed By: #### V [id number], MG, BMP, JOSE, FE and TIBC, RETIC #### [facility] [address] Chloride [Moles/Vol] 109 mmol/L High 98-107 [facility] Comment on above: Performed By: #### V [id number], MG, BMP, JOSE, FE and TIBC, RETIC #### [address] CO2 [Moles/Vol] 15.0 mmol/L Low 21.0-31.0 [facility] Comment on above: Performed By: #### V [id number], MG, BMP, JOSE, FE and TIBC, RETIC #### [address] Creatinine [Mass/Vol] 3.16 mg/dL High 0.60-1.20 [facility] Comment on above: Performed By: #### V [id number], MG, BMP, JOSE, FE and TIBC, RETIC #### [address] Creatinine Clr Calc Pharmacy 19.26 [facility] Comment on above: Performed By: #### V [id number], MG, BMP, JOSE, FE and TIBC, RETIC #### [address] GFR/1.73 sq M.predicted MDRD (S/P/Bld) [Vol rate/Area] 16.114 mL/min/{1.73_m2} [facility] Comment on above: Performed By: #### V [id number], MG, BMP, JOSE, FE and TIBC, RETIC #### [address] Glucose [Mass/Vol] 79 mg/dL Normal 70-100 [facility] Comment on above: Result Comment: [facility] Glucose Reference Range is dependent on time and content of last meal. Glucose of more than 200 mg/dL in a nonstressed, ambulatory subject supports the diagnosis of Diabetes Mellitus. ADA recommended reference range Performed By: #### V [id number], MG, BMP, JOSE, FE and TIBC, RETIC #### [address] Potassium [Moles/Vol] 4.6 mmol/L Normal 3.5-5.1 [facility] Comment on above: Performed By: #### V [id number], MG, BMP, JOSE, FE and TIBC, RETIC #### [address] Sodium [Moles/Vol] 134 mmol/L Low 136-145 [facility] Comment on above: Performed By: #### V [id number], MG, BMP, JOSE, FE and TIBC, RETIC #### [address] Urea nitrogen [Mass/Vol] 117 mg/dL High 7-25 [facility] Comment on above: Performed By: #### V [id number], MG, BMP, JOSE, FE and TIBC, RETIC #### [address] Magnesiumon 06-30-2023 Magnesium [Mass/Vol] 2.5 mg/dL Normal 1.9-2.7 [facility] Comment on above: Result Comment: PERF ORMED BY: [place] [address] PATHOLOGIST [employer] OPERATOR TANNER GAVIN M.D. Performed By: #### V [id number], MG, BMP, JOSE, FE and TIBC, RETIC #### [address] [place] [address] [facility] 36on 04-10-2023 36 Patient states she n eeds to cancel her surgery due to her son being on the transplant list, states she would like to reschedule. Normal [facility] Orders Onlyon 04-05-2023 Orders Only [id number] Loren Moser 1960 F Date Provider Department Center 04/05/2023 [facility] Family History Family history unknown: Yes [facility] Office Visiton 02-22-2023 Follow-up visit [id number] Loren Moser 1960 F Date Provider Department Center 02/22/2023 [facility]ANNON [facility] Family History Family history unknown: Yes Level of Service:08803 SC OFFICE/OUTPATIENT ESTABLISHED MOD MDM 30-39 MIN [facility] Follow-Upon 02-16-2023 Follow-Up [id number] Loren Moser 1960 F Date Provider Department Center 02/16/2023 [facility]THO Family History Family history unknown: Yes Level of Service:24360 SC OFFICE/OUTPATIENT ESTABLISHED LOW MDM 20-29 MIN Reason for Visit and Comments: Pain [136] [facility] Consultation Noteon 02-10-20 Consultation Note [id number]:12 7 [facility] 36on 02-08-2023 36 Called patient to in form her she needs the CT done before her follow up w/ alonzo. The appt has been cancelled and needs rescheduled. Normal [facility] Consultation Noteon 02-09-20 Consultation Note 104.170 [id number]#[id number]:12 7 [facility] RAD - MISCon 02-08-2023 RAD - MISC [id number]:12 7 [facility] 29on 01-13-2023 29 Addended by: OLU TORRES on: 02/07/2023 12:47 PM Modules accepted: Orders [facility] Office Visiton 01-13-2023 Follow-up visit [id number] Loren Moser 1960 Provider Department Center 01/13/2023 Jimy-SHERLY ROSADO [facility] MPORTHO Family History Family history unknown: Yes Level of Service:58196 SC OFFICE/OUTPATIENT NEW MODERATE MDM 45-59 MINUTES Reason for Visit and Comments: Pain [136] Pain [136] [facility] 36on 12-23-2022 36 Please tell her the renal function is much better now (creatinine 1.4 on 12/20/2022). I don't think she need to increase water pills. Follow up labs as scheduled. [facility] Telephoneon 12-23-2022 Telephone [id number] Loren Moser 1960 Provider Department Center 12/23/2022 BENJIE LERMA YVONNE [place] [facility] No family history on file [facility] Office Visiton 12-15-2022 Follow-up visit [id number] Loren Moser 1960 Provider Department [place] 12/15/2022 BENJIE LERMA YVONNE [facility] No family history on file Level of Service:95928 SC OFFICE/OUTPATIENT ESTABLISHED MOD MDM 30-39 MIN Reason for Visit and Comments: Follow-up [138526] [facility] HPon 11-30-2022 HP H&P reviewed. The car wasserman was examined and there are no changes to the H&P. [facility] NURSNOTEon 11-30-2022 NURSNOTE RN educated pt on d/ c instructions. RN encouraged pt to voice any questions or concerns. Pt verbalizes no questions or concerns at this time. Pt was walked off of unit with all of belongings. [facility] Orders Onlyon 11-23-2022 Orders Only [id number] Loren Moser 1960 F Date Provider Department Center 11/23/2022 [facility] No family history on file Normal [facility] CBC AUTO DIFFon 11-22-2022 BASO # 0.0 103/ul Normal 0.0-0.1 [facility] Comment on above: Performed By: #### C BC ####[facility] [id number] [address]Dr. Airam Tripathi Basophils/100 WBC (Bld) 0.6 % Normal 0.2-2.0 [facility] Comment on above: Performed By: #### C BC ####[facility] [id number] [address] [place], [place] [address]Dr. Airam Tripathi EO # 0.1 103/ul Normal 0.0-0.7 [facility] Comment on above: Performed By: #### C BC ####[facility] Pnbfipfmdt[address] [place], [place] [address]Dr. Airam Tripathi Eosinophils/100 WBC (Bld) 1.7 % Normal 0.9-7.0 [facility] Comment on above: Performed By: #### C BC ####[facility] Juotjeddey[address] [place], [place] [address]Dr. Airam Tripathi Erythrocyte distribution width (RBC) [Ratio] 15.2 % Critically high 11.0-15.0 [facility] Comment on above: Performed By: #### C BC ####[facility] Ialrdudbew[address] [place], [place] [address]Dr. Airam Tripathi Hematocrit (Bld) [Volume fraction] 31.6 % Critically low 36.0-48.0 [facility] Comment on above: Performed By: #### C BC ####[facility] Ymyjvkxiqn[address] [place], [place] [address]Dr. Airam Tripathi Hemoglobin (Bld) [Mass/Vol] 9.9 g/dL Critically low 12.0-16.0 [facility] Comment on above: Performed By: #### C BC ####[facility] Brltvcyzvk[address] [place], [place] [address]Dr. Airam Tripathi IG # 0.02 10e3/ul Normal 0.00-0.03 [facility] Comment on above: Performed By: #### C BC ####[facility] Wfoqfglkdg4[address] [place] [address]DrKianna Airam Tripathi IG % 0.4 % Normal 0.0-0.5 [facility] Comment on above: Performed By: #### C BC ####[facility] Vbxsyjsmaf9780 [place] [address]DrKianna Airam Tripathi LYMPH # 0.8 103/ul Critically low 1.2-3.8 [facility] Comment on above: Performed By: #### C BC ####[facility] Bwkybzlrht06[address] [place], [place] [address]DrKianna Airam Tripathi Lymphocytes/100 WBC (Bld) 16.9 % Critically low 20.5-60.0 [facility] Comment on above: Performed By: #### C BC ####[facility] Tobcoxaszr[address] [place], [place] [address]DrKianna Airam Tripathi MANUAL DIFF REQ NO Normal [facility] Comment on above: Performed By: #### C BC ####[facility] Poliipnbze[address] [place], [place] [address]DrKianna Airam Tripathi MCH (RBC) [Entitic mass] 28.4 pg Normal 26.7-34.0 [facility] Comment on above: Performed By: #### C BC ####[facility] Ibtrowvpet[address] [place], [place] [address]DrKianna Airam Tripathi MCHC (RBC) [Mass/Vol] 31.3 g/dL Normal 29.9-35.2 [facility] Comment on above: Performed By: #### C BC ####[facility] Aqzwhxjzix[address] [place], [place] [address]DrKianna Airam Tripathi MCV (RBC) [Entitic vol] 90.8 fL Normal 81.0-99.0 [facility] Comment on above: Performed By: #### C BC ####[facility] Tcxqundbsw0[address] [place], [place] [address]DrKianna Airam Tripathi MONO # 0.4 103/ul Normal 0.3-0.8 [facility] Comment on above: Performed By: #### C BC ####[facility] Mabdijmswe0802 [place] [address]Dr. Airam Tripathi Monocytes/100 WBC (Bld) 8.9 % Normal 1.7-12.0 [facility] Comment on above: Performed By: #### C BC ####[facility] Vjdspwzkmb9746 [place] [address]Dr. Airam Tripathi NEUT # 3.4 103/ul Normal 1.4-6.5 [facility] Comment on above: Performed By: #### C BC ####[facility] Lbcwlztmxj5182 [place] [address]Dr. Airam Tripathi Neutrophils/100 WBC (Bld) 71.5 % Normal 43.0-75.0 [facility] Comment on above: Performed By: #### C BC ####[facility] Jzzhutjare9609 [place] [address]Dr. Airam Tripathi Platelet mean volume (Bld) [Entitic vol] 9.4 fL Critically low 9.5-13.5 [facility] Comment on above: Performed By: #### C BC ####[facility] Mvnmqeuzek1840 [place] [address]Dr. Airam Tripathi PLT 302 103/ul Normal 150-450 [facility] Comment on above: Performed By: #### C BC ####[facility] Ofobqenuyc7149 [place] [address]Dr. Airam Tripathi RBC 3.48 106/ul Critically low 4.20-5.40 [facility] Comment on above: Performed By: #### C BC ####[facility] Lptlwiimsy9226 [place] [address]Dr. Airam Tripathi WBC 4.7 103/ul Normal 4.0-11.0 [facility] Comment on above: Performed By: #### C BC ####[facility] Nnbxfcwruw8076 [place] [address]DrKianna Tripathi PROF 14(COMP METB)on 023 Albumin [Mass/Vol] 3.4 g/dL Normal 3.4-5.0 [facility] Comment on above: Performed By: #### C MP ####[facility] Jdprqzlgqt9060 [place] [address]Dr. Airam Deuce Albumin/Globulin [Mass ratio] 1.0 {ratio} Normal [facility] Comment on above: Performed By: #### C MP ####[facility] Rnbtqzjfwe7436 [place] [address]Dr. Airam Deuce ALP [Catalytic activity/Vol] 123 U/L Critically high 46-116 [facility] Comment on above: Performed By: #### C MP ####[facility] Wlzzptuhdu0922 [place] [address]Dr. Airam Tripathi ALT [Catalytic activity/Vol] 24 U/L Normal 14-59 [facility] Comment on above: Performed By: #### C MP ####[facility] Jvnowpszjf1098 [place] [address]Dr. Airam Tripathi Anion gap [Moles/Vol] 12.1 mmol/L Normal [facility] Comment on above: Performed By: #### C MP ####[facility] Kgkxthzkvp43[address] [place], [place] [address]Dr. Airam Deuce AST [Catalytic activity/Vol] 30 U/L Normal 15-37 [facility] Comment on above: Performed By: #### C MP ####[facility] Hzngnavpue[address] [place], [place] [address]Dr. Airam Tripathi Bilirubin [Mass/Vol] 0.4 mg/dL Normal 0.2-1.0 [facility] Comment on above: Performed By: #### C MP ####[facility] Dnrjikgftf3784 [place] [address]Dr. Airam Tripathi Calcium [Mass/Vol] 8.9 mg/dL Normal 8.5-10.1 [facility] Comment on above: Performed By: #### C MP ####[facility] Gpasgdgkmv6433 [place] [address]Dr. Airam Tripathi Chloride [Moles/Vol] 95 mmol/L Critically low 98-107 [facility] Comment on above: Performed By: #### C MP ####[facility] Hnpzduyahn4184 [place] [id number]. Airam Tripathi CO2 [Moles/Vol] 28.7 mmol/L Normal 21.0-32.0 [facility] Comment on above: Performed By: #### C MP ####[facility] Ixqbchswcc7052 [place] [id number]. Airam Tripathi Creatinine [Mass/Vol] 1.25 mg/dL Critically high 0.55-1.02 [facility] Comment on above: Performed By: #### C MP ####[facility] Fdtolhggak6501 [place] [address]Dr. Airam Tripathi EGFR-AF CYPRIOT 53 mL/min/1.73m2 Critically low >=60 [facility] Comment on above: Performed By: #### C MP ####[facility] Xxnyrdvnxk3810 [place] [address]Dr. Airam Tripathi EGFR-NON AF CYPRIOT 44 mL/min/1.73m2 Critically low >=60 [facility] Comment on above: Performed By: #### C MP ####[facility] Caamfljzhp9184 [place] [address]Dr. Airam Tripathi Globulin (S) [Mass/Vol] 3.5 g/dL Normal [facility] Comment on above: Performed By: #### C MP ####[facility] Kfjxgansua7180 [place] [address]Dr. Airam Tripathi Glucose [Mass/Vol] 89 mg/dL Normal 74-106 [facility] Comment on above: Performed By: #### C MP ####[facility] Gybscvtavp6918 [place] [id number]. Airam Tripathi Potassium [Moles/Vol] 4.8 mmol/L Normal 3.5-5.1 [facility] Comment on above: Performed By: #### C MP ####[facility] Mpkwdyswty0101 [place] [address]Dr. Airam Tripathi Protein [Mass/Vol] 6.9 g/dL Normal 6.4-8.2 [facility] Comment on above: Performed By: #### C MP ####[facility] Olnogwymen0378 [place] [address]DrKianna Airam Tripathi Sodium [Moles/Vol] 131 mmol/L Critically low 136-145 [facility] Comment on above: Performed By: #### C MP ####[facility] Uwuykulhhs[address] [place], [place] [address]DrKianna Airam Tripathi Urea nitrogen [Mass/Vol] 37.0 mg/dL Critically high 7.0-18.0 [facility] Comment on above: Performed By: #### C MP ####[facility] Okemfrciio75[address] [place], [place] [address]DrKianna Airam Deuce Urea nitrogen/Creatinine [Mass ratio] 29.6 mg/mg Normal [facility] Comment on above: Performed By: #### C MP ####[facility] Mywxvypeta[address] [place], [place] [address]DrKianna Airam Tripathi OSMOLALITYon 11-18-2022 Osmolality [Osmolality] 293 mosm/kg Normal 275-295 [facility] Comment on above: Performed By: #### O SMO ####[facility] Gsqprnjzbj1925[address] [place], [place] [address]Dr. Airam Tripathi BNPon 11-16-2022 Natriuretic peptide B (Bld) [Mass/Vol] 1142.0 pg/mL Critically high <=900.0 [facility] Comment on above: Performed By: #### B LARGE ENGINE ASSEMBLER ####[facility] Lebaqxholh34[address] [place], [place] [address]DrKianna Airam Tripathi CBC AUTO DIFFon 11-16-2022 BASO # 0.0 103/ul Normal 0.0-0.1 [facility] Comment on above: Performed By: #### C BC ####[facility] Cnjajpmkep[address] [place], [place] [address]DrKianna Airam Deuce Basophils/100 WBC (Bld) 0.3 % Normal 0.2-2.0 [facility] Comment on above: Performed By: #### C BC ####[facility] Jbdryqbmvd646[address] [place], [place] [address]Dr. Airam Tripathi EO # 0.3 103/ul Normal 0.0-0.7 [facility] Comment on above: Performed By: #### C BC ####[facility] Wekbgsbhvi5001 [place] [address]Dr. Airam Tripathi Eosinophils/100 WBC (Bld) 4.6 % Normal 0.9-7.0 [facility] Comment on above: Performed By: #### C BC ####[facility] Jrcsmeeqrl8267 [place] [address]Dr. Airam Tripathi Erythrocyte distribution width (RBC) [Ratio] 16.1 % Critically high 11.0-15.0 [facility] Comment on above: Performed By: #### C BC ####[facility] Xenutfzgqt3216[address] [place], [place] [address]Dr. Airam Tripathi Hematocrit (Bld) [Volume fraction] 28.0 % Critically low 36.0-48.0 [facility] Comment on above: Performed By: #### C BC ####[facility] Camzkoxcqt3822[address] [place], [place] [address]Dr. Airam Tripathi Hemoglobin (Bld) [Mass/Vol] 8.9 g/dL Critically low 12.0-16.0 [facility] Comment on above: Performed By: #### C BC ####[facility] Zsxbxogdwn6914[address] [place], [place] [address]Dr. Airam Tripathi IG # 0.02 10e3/ul Normal 0.00-0.03 [facility] Comment on above: Performed By: #### C BC ####[facility] Atfwjewliw339[address] [place], [place] [address]Dr. Airam Tripathi IG % 0.3 % Normal 0.0-0.5 [facility] Comment on above: Performed By: #### C BC ####[facility] Abzuogmxzy295[address] [place], [place] [address]Dr. Airam Tripathi LYMPH # 1.5 103/ul Normal 1.2-3.8 [facility] Comment on above: Performed By: #### C BC ####[facility] Hdgrcgjoiv[address] [place] [address]. Airam Tripathi Lymphocytes/100 WBC (Bld) 24.2 % Normal 20.5-60.0 [facility] Comment on above: Performed By: #### C BC ####[facility] Fbelgkovnz6744 [place] [address]Dr. Airam Tripathi MANUAL DIFF REQ NO Normal [facility] Comment on above: Performed By: #### C BC ####[facility] Qsvtuesyoo1942 [place] [address]Dr. Airam Tripathi MCH (RBC) [Entitic mass] 29.3 pg Normal 26.7-34.0 [facility] Comment on above: Performed By: #### C BC ####[facility] Trnghhdqpy7309[address] [place], [place] [address]Dr. Airam Tripathi MCHC (RBC) [Mass/Vol] 31.8 g/dL Normal 29.9-35.2 [facility] Comment on above: Performed By: #### C BC ####[facility] Lxusrnwtaf0415[address] [place], [place] [address]Dr. Airam Tripathi MCV (RBC) [Entitic vol] 92.1 fL Normal 81.0-99.0 [facility] Comment on above: Performed By: #### C BC ####[facility] Inuxgivgmp788[address] [place], [place] [address]Dr. Airam Tripathi MONO # 0.6 103/ul Normal 0.3-0.8 [facility] Comment on above: Performed By: #### C BC ####[facility] Gltnsnivpe6247[address] [place], [place] [address]Dr. Airam Tripathi Monocytes/100 WBC (Bld) 10.0 % Normal 1.7-12.0 [facility] Comment on above: Performed By: #### C BC ####[facility] Kzaetbcacd128[address] [place], [place] [address]Dr. Airam Tripathi NEUT # 3.7 103/ul Normal 1.4-6.5 [facility] Comment on above: Performed By: #### C BC ####[facility] Iuaxxjhujf207[address] [place], [place] [address]Dr. Airam Tripathi Neutrophils/100 WBC (Bld) 60.6 % Normal 43.0-75.0 [facility] Comment on above: Performed By: #### C BC ####[facility] Hsazqkvaxn0577 [place] [address]Dr. Airam Tripathi Platelet mean volume (Bld) [Entitic vol] 9.1 fL Critically low 9.5-13.5 [facility] Comment on above: Performed By: #### C BC ####[facility] Qwkplrioki5298 [place] [address]Dr. Selenaneil Tripathi PLT 242 103/ul Normal 150-450 [facility] Comment on above: Performed By: #### C BC ####[facility] Hzedwvxhnh5644 [place] [address]Dr. Selenaneil Tripathi RBC 3.04 106/ul Critically low 4.20-5.40 [facility] Comment on above: Performed By: #### C BC ####[facility] Lyvpulqztw6766[address] [place], [place] [address]Dr. Selenaneil Tripathi WBC 6.1 103/ul Normal 4.0-11.0 [facility] Comment on above: Performed By: #### C BC ####[facility] Joyvjemcrf1832[address] [place], [place] [address]DrKianna Selenaneil Tripathi CT STROKE HEAD WOon 11-17-19 CT STROKE HEAD WO Normal [facility] PROF CHEM 8 (BAS METB)on Anion gap [Moles/Vol] 9.8 mmol/L Normal [facility] Comment on above: Performed By: #### B GERTRUDE, HSTROPN ####[facility] Tednpgxfxt5081 [place] [address]Dr. Airam Tripathi Calcium [Mass/Vol] 8.4 mg/dL Critically low 8.5-10.1 [facility] Comment on above: Performed By: #### B MP, HSTROPN ####[facility] Idefikwgcr7432 [place] [address]DrKianna Tripathi Chloride [Moles/Vol] 99 mmol/L Normal 98-107 [facility] Comment on above: Performed By: #### B GERTRUDE, HSTROPN ####[facility] Pkcdquuvqc8577 [place] [address]Dr. Airam Tripathi CO2 [Moles/Vol] 28.3 mmol/L Normal 21.0-32.0 [facility] Comment on above: Performed By: #### B GERTRUDE, HSTROPN ####[facility] Lpwoexlwjq2854[address] [place], [place] [address]Dr. Airam Tripathi Creatinine [Mass/Vol] 1.40 mg/dL Critically high 0.55-1.02 [facility] Comment on above: Performed By: #### B GERTRUDE, HSTROPN ####[facility] Qeicmdmcxq80[address] [place], [place] [address]Dr. Airam Tripathi EGFR-AF CYPRIOT 46 mL/min/1.73m2 Critically low >=60 [facility] Comment on above: Performed By: #### B GERTRUDE, HSTROPN ####[facility] Yxdllscsen8[address] [place], [place] [address]Dr. Airam Tripathi EGFR-NON AF CYPRIOT 38 mL/min/1.73m2 Critically low >=60 [facility] Comment on above: Performed By: #### B GERTRUDE, HSTROPN ####[facility] Qqdwlghfrn918[address] [place], [place] [address]Dr. Airam Tripathi Glucose [Mass/Vol] 88 mg/dL Normal 74-106 [facility] Comment on above: Performed By: #### B GERTRUDE, HSTROPN ####[facility] Tjqgvgjzfq[address] [place], [place] [address]Dr. Airam Tripathi Potassium [Moles/Vol] 5.1 mmol/L Normal 3.5-5.1 [facility] Comment on above: Performed By: #### B GERTRUDE, HSTROPN ####[facility] Ozxhtnvjmz8904[address] [place], [place] [address]Dr. Airam Tripathi Sodium [Moles/Vol] 132 mmol/L Critically low 136-145 Th [facility] Comment on above: Performed By: #### B GERTRUDE, HSTROPN ####[facility] Ycbzgrwlgs2802 [place] [id number]. Airam Tripathi Urea nitrogen [Mass/Vol] 56.0 mg/dL Critically high 7.0-18.0 [facility] Comment on above: Performed By: #### B GERTRUDE, HSTROPN ####[facility] Wypffsdhke5774 [place] [id number]. Airam Tripathi Urea nitrogen/Creatinine [Mass ratio] 40.0 mg/mg Normal [facility] Comment on above: Performed By: #### B GERTRUDE, HSTROPN ####[facility] Dnicvmwdwj4939 [place] [address]Dr. Airam Tripathi TROPONIN, HIGH SENSITIVITYon 11-16-2022 HSTROP 9.9 pg/mL Normal 4.0-51.3 [facility] Comment on above: Result Comment: CUT- OFF POINTS HAVE BEEN ESTABLISHED BASED ON THE FOURTH UNIVERSAL DEFINITIONS OF MYOCARDIALINFARCTION. THE UPPER REFERENCE LIMIT (URL) OF TROPONIN, DEFINED THE 99TH PERCENTILE OFcTnI DISTRIBUTION IN A REFERENCE POPULATION, HAS BEEN CONFIRMED THE DECISION THRESHOLDFOR HI DIAGNOSIS. Performed By: #### B GERTRUDE HSTROPN ####[facility] Vbhodqvlud24[address] [place], [place] [address]Dr. Airam Tripathi XR CHEST 1 Von 11-16-2022 XR CHEST 1 V Normal [facility] CBC AUTO DIFFon 11-11-2022 BASO # 0.0 103/ul Normal 0.0-0.1 [facility] Comment on above: Performed By: #### C BC ####[facility] Ejvzlndzbv3591 [place] [address]Dr. Airam Tripathi Basophils/100 WBC (Bld) 0.4 % Normal 0.2-2.0 [facility] Comment on above: Performed By: #### C BC ####[facility] Cxnygctdku5000 [place] [address]Dr. Airam Tripathi EO # 0.4 103/ul Normal 0.0-0.7 [facility] Comment on above: Performed By: #### C BC ####[facility] Vewkqhagit5[address] [place], [place] [address]Dr. Airam Tripathi Eosinophils/100 WBC (Bld) 4.6 % Normal 0.9-7.0 [facility] Comment on above: Performed By: #### C BC ####[facility] Igczpbtxrv9780 [place] [address]Dr. Airam Tripathi Erythrocyte distribution width (RBC) [Ratio] 15.8 % Critically high 11.0-15.0 [facility] Comment on above: Performed By: #### C BC ####[facility] Yzmktxpkou95[address] [place], [place] [address]Dr. Airam Tripathi Hematocrit (Bld) [Volume fraction] 30.3 % Critically low 36.0-48.0 [facility] Comment on above: Performed By: #### C BC ####[facility] Vpxqjparzs8[address] [place], [place] [address]Dr. Airam Tripathi Hemoglobin (Bld) [Mass/Vol] 9.3 g/dL Critically low 12.0-16.0 [facility] Comment on above: Performed By: #### C BC ####[facility] Xdmcwgolvk3417[address] [place], [place] [address]Dr. Airam Tripathi IG # 0.03 10e3/ul Normal 0.00-0.03 [facility] Comment on above: Performed By: #### C BC ####[facility] Jpmnmbujhv532[address] [place], [place] [address]Dr. Airam Tripathi IG % 0.4 % Normal 0.0-0.5 [facility] Comment on above: Performed By: #### C BC ####[facility] Vievnwljur43[address] [place], [place] [address]Dr. Airam Tripathi LYMPH # 2.0 103/ul Normal 1.2-3.8 [facility] Comment on above: Performed By: #### C BC ####[facility] Xzfympnbsc52[address] [place], [place] [address]Dr. Airam Tripathi Lymphocytes/100 WBC (Bld) 24.5 % Normal 20.5-60.0 [facility] Comment on above: Performed By: #### C BC ####[facility] Hmltcshuga2580 [place] [address]Dr. Airam Deuce MANUAL DIFF REQ NO Normal [facility] Comment on above: Performed By: #### C BC ####[facility] Rfghnifktb2893 [place] [address]Dr. Airam Deuce MCH (RBC) [Entitic mass] 28.9 pg Normal 26.7-34.0 [facility] Comment on above: Performed By: #### C BC ####[facility] Qqauohjynj[address] [place], [place] [address]Dr. Airam Deuce MCHC (RBC) [Mass/Vol] 30.7 g/dL Normal 29.9-35.2 [facility] Comment on above: Performed By: #### C BC ####[facility] Ubiedxuqty6[address] [place], [place] [address]Dr. Selenaneil Tripathi MCV (RBC) [Entitic vol] 94.1 fL Normal 81.0-99.0 [facility] Comment on above: Performed By: #### C BC ####[facility] Lclhwdlmlt68[address] [place], [place] [address]Dr. Airam Deuce MONO # 0.7 103/ul Normal 0.3-0.8 [facility] Comment on above: Performed By: #### C BC ####[facility] Uwojgervdm64[address] [place], [place] [address]Dr. Airam Tripathi Monocytes/100 WBC (Bld) 8.3 % Normal 1.7-12.0 [facility] Comment on above: Performed By: #### C BC ####[facility] Grzeuugpxv[address] [place], [place] [address]Dr. Airam Tripathi NEUT # 5.0 103/ul Normal 1.4-6.5 [facility] Comment on above: Performed By: #### C BC ####[facility] Fmnavjkywd[address] [place], [place] [address]Dr. Airam Tripathi Neutrophils/100 WBC (Bld) 61.8 % Normal 43.0-75.0 [facility] Comment on above: Performed By: #### C BC ####[facility] Pfaaypieck[address] [place], [place] [address]Dr. Airam Tripathi Platelet mean volume (Bld) [Entitic vol] 9.4 fL Critically low 9.5-13.5 [facility] Comment on above: Performed By: #### C BC ####[facility] Bhwbtsdknl6134 [place] [address]Dr. Airam Tripathi PLT 270 103/ul Normal 150-450 [facility] Comment on above: Performed By: #### C BC ####[facility] Ukkunknxin2804 [place] [address]Dr. Airam Tripathi RBC 3.22 106/ul Critically low 4.20-5.40 [facility] Comment on above: Performed By: #### C BC ####[facility] Eoadztzdjq3318 [place] [address]Dr. Airam Tripathi WBC 8.1 103/ul Normal 4.0-11.0 [facility] Comment on above: Performed By: #### C BC ####[facility] Jgvoahzjgp1488 [place] [address]DrKianna Tripathi PROF 14(COMP METB)on 023 Albumin [Mass/Vol] 3.2 g/dL Critically low 3.4-5.0 [facility] Comment on above: Performed By: #### C MP ####[facility] Bdksyhvcml9846 [place] [address]Dr. Airam Tripathi Albumin/Globulin [Mass ratio] 1.0 {ratio} Normal [facility] Comment on above: Performed By: #### C MP ####[facility] [id number] [place] [address]Dr. Airam Tripathi ALP [Catalytic activity/Vol] 108 U/L Normal 46-116 [facility] Comment on above: Performed By: #### C MP ####[facility] [id number] [place] [address]DrKianna Tripathi ALT [Catalytic activity/Vol] 30 U/L Normal 14-59 [facility] Comment on above: Performed By: #### C MP ####[facility] [id number] [place], [place] [address]Dr. Airam Deuce Anion gap [Moles/Vol] 12.8 mmol/L Normal [facility] Comment on above: Performed By: #### C MP ####[facility] Uoccnjtwpn[address] [place], [place] [address]Dr. Airam Tripathi AST [Catalytic activity/Vol] 33 U/L Normal 15-37 [facility] Comment on above: Performed By: #### C MP ####[facility] Ttsqqfbidt[address] [place], [place] [address]Dr. Airam Deuce Bilirubin [Mass/Vol] 0.2 mg/dL Normal 0.2-1.0 [facility] Comment on above: Performed By: #### C MP ####[facility] Kabzmcwdue167[address] [place], [place] [address]Dr. Airam Deuce Calcium [Mass/Vol] 8.3 mg/dL Critically low 8.5-10.1 [facility] Comment on above: Performed By: #### C MP ####[facility] Xdmqypezsx260[address] [place], [place] [address]Dr. Ariam Tripathi Chloride [Moles/Vol] 99 mmol/L Normal 98-107 [facility] Comment on above: Performed By: #### C MP ####[facility] Bfesalnwsx8[address] [place], [place] [address]Dr. Airam Tripathi CO2 [Moles/Vol] 27.6 mmol/L Normal 21.0-32.0 [facility] Comment on above: Performed By: #### C MP ####[facility] Kbmfbdsqxs[address] [place], [place] [address]Dr. Selenaneil Tripathi Creatinine [Mass/Vol] 2.01 mg/dL Critically high 0.55-1.02 [facility] Comment on above: Performed By: #### C MP ####[facility] Wlvxljtfen205[address] [place], [place] [address]Dr. Airam Tripathi EGFR-AF CYPRIOT 31 mL/min/1.73m2 Critically low >=60 [facility] Comment on above: Performed By: #### C MP ####[facility] Avthklifpm226[address] [place], [place] [address]Dr. Airam Deuce EGFR-NON AF CYPRIOT 25 mL/min/1.73m2 Critically low >=60 [facility] Comment on above: Performed By: #### C MP ####[facility] Rmopptwzqo[address] [place] [address]Dr. Selenaneil Deuce Globulin (S) [Mass/Vol] 3.2 g/dL Normal [facility] Comment on above: Performed By: #### C MP ####[facility] Dacctuzlam[address] [place] [address]Dr. Airam Tripathi Glucose [Mass/Vol] 158 mg/dL Critically high 74-106 [facility] Comment on above: Performed By: #### C MP ####[facility] Nnvuzhssvl624[address] [place], [place] [address]Dr. Airam Tripatih Potassium [Moles/Vol] 5.4 mmol/L Critically high 3.5-5.1 [facility] Comment on above: Performed By: #### C MP ####[facility] Opqliztiwz298[address] [place], [place] [address]Dr. Airam Tripathi Protein [Mass/Vol] 6.4 g/dL Normal 6.4-8.2 [facility] Comment on above: Performed By: #### C MP ####[facility] Cigofmeaob[address] [place], [place] [address]Dr. Airam Tripathi Sodium [Moles/Vol] 134 mmol/L Critically low 136-145 Th [facility] Comment on above: Performed By: #### C MP ####[facility] Gkvurmpreh79[address] [place], [place] [address]Dr. Airam Tripathi Urea nitrogen [Mass/Vol] 52.0 mg/dL Critically high 7.0-18.0 [facility] Comment on above: Performed By: #### C MP ####[facility] Euneugjucq509[address] [place], [place] [address]Dr. Airam Tripathi Urea nitrogen/Creatinine [Mass ratio] 25.9 mg/mg Normal [facility] Comment on above: Performed By: #### C MP ####[facility] Mehrvbrkwx2[address] [place], [place] [address]Dr. Airam Tripathi on 11-07-2022 [facility] Cardiology - [facility] Subjective Mabel Moser is a 62 y.o. year old female patient being seen for 2 week follow up per Sofie Bernard CNP. She says since she was last seen on 10/28, Dr. Santana increased her Entresto to 97-103mg bid, metoprolol to 50mg TID, and hydralazine to 100mg TID. Says she was in [facility] again last Monday with a BP [...] In the past she was admitted to [facility] in 2019 with fluid overload and [...] distension. Pal (more content not included)... Normal [facility] Office Visiton 11-07-2022 Follow-up visit [id number] Loren Moser 1960 F Date Provider Department Center 11/07/2022 BessJULIO CÉSARTROYBENJIE RASCON [facility] No family history on file Level of Service:02462 [place] OFFICE/OUTPATIENT ESTABLISHED MOD MDM 30-39 MIN Normal [facility] OSMOLALITYon 11-06-2022 Osmolality [Osmolality] 261 mosm/kg Critically low 275-295 [facility] Comment on above: Performed By: #### O SMO ####[facility] Bautjjwicq57[address] [place], [place] [address]Dr. Airam Tripathi XR HIPS GUMARO 3_4V WO PELVISon 11-04-2022 XR HIPS GUMARO 3_4V WO PELVIS Normal [facility] XR KNEE LT 4V or >on 023 XR KNEE LT 4V or > Normal [facility] BNPon 11-03-2022 Natriuretic peptide B (Bld) [Mass/Vol] 1168.0 pg/mL Critically high <=900.0 [facility] Comment on above: Performed By: #### B LARGE ENGINE ASSEMBLER, BMP ####[facility] Xjtutjpnwv[address] [place] [address]Dr. Airam Tripathi CBC AUTO DIFFon 11-03-2022 BASO # 0.0 103/ul Normal 0.0-0.1 [facility] Comment on above: Performed By: #### C BC ####[facility] Kmwmlvajmz[address] [place] [address]Dr. Airam Tripathi Basophils/100 WBC (Bld) 0.3 % Normal 0.2-2.0 The [facility] Comment on above: Performed By: #### C BC ####[facility] Uhitjfenvh[address] [place] [address]Dr. Airam Tripathi EO # 0.2 103/ul Normal 0.0-0.7 [facility] Comment on above: Performed By: #### C BC ####[facility] Nmildhxvil6736 [place] [id number]. Airam Tripathi Eosinophils/100 WBC (Bld) 1.9 % Normal 0.9-7.0 The [facility] Comment on above: Performed By: #### C BC ####[facility] Cugwxztcor6005 [place] [id number]. Airam Tripathi Erythrocyte distribution width (RBC) [Ratio] 15.2 % Critically high 11.0-15.0 The [facility] Comment on above: Performed By: #### C BC ####[facility] Svscezgfur22[address] [place], [place] [address]Dr. Airam Tripathi Hematocrit (Bld) [Volume fraction] 34.3 % Critically low 36.0-48.0 The [facility] Comment on above: Performed By: #### C BC ####[facility] Lynqduuayl01[address] [place], [place] [address]Dr. Airam Tripathi Hemoglobin (Bld) [Mass/Vol] 11.0 g/dL Critically low 12.0-16.0 [facility] Comment on above: Performed By: #### C BC ####[facility] Kzeoycbqvk2486[address] [place], [place] [address]Dr. Airam Tripathi IG # 0.06 10e3/ul Critically high 0.00-0.03 [facility] Comment on above: Performed By: #### C BC ####[facility] Gfodyzxhfv7[address] [place], [place] [address]Dr. Airam Tripathi IG % 0.5 % Normal 0.0-0.5 The [facility] Comment on above: Performed By: #### C BC ####[facility] Huqszlaubz497[address] [place], [place] [address]Dr. Airam Tripathi LYMPH # 2.3 103/ul Normal 1.2-3.8 The [facility] Comment on above: Performed By: #### C BC ####[facility] Byhkgmvuvv9[address] [place], [place] [address]Dr. Airam Tripathi Lymphocytes/100 WBC (Bld) 20.4 % Critically low 20.5-60.0 The [facility] Comment on above: Performed By: #### C BC ####[facility] Tnexqjavfq6[address] [place] [address]Dr. Airam Tripathi MANUAL DIFF REQ NO Normal [facility] Comment on above: Performed By: #### C BC ####[facility] Xbmkwsztpe8552 [place] [id number]. Airam Tripathi MCH (RBC) [Entitic mass] 28.7 pg Normal 26.7-34.0 The [facility] Comment on above: Performed By: #### C BC ####[facility] Svbqhcyzbg[address] [place], [place] [address]Dr. Airam Tripathi MCHC (RBC) [Mass/Vol] 32.1 g/dL Normal 29.9-35.2 [facility] Comment on above: Performed By: #### C BC ####[facility] Bsnxscympq[address] [place], [place] [address]Dr. Airam Deuce MCV (RBC) [Entitic vol] 89.6 fL Normal 81.0-99.0 [facility] Comment on above: Performed By: #### C BC ####[facility] Memmhzyfpd3026[address] [place], [place] [address]Dr. Airam Tripathi MONO # 0.9 103/ul Critically high 0.3-0.8 [facility] Comment on above: Performed By: #### C BC ####[facility] Hkfparrxxz40[address] [place], [place] [address]Dr. Selenaneil Tripathi Monocytes/100 WBC (Bld) 8.3 % Normal 1.7-12.0 The [facility] Comment on above: Performed By: #### C BC ####[facility] Xjxztrnslw469[address] [place], [place] [address]Dr. Airam Tripathi NEUT # 7.8 103/ul Critically high 1.4-6.5 The [facility] Comment on above: Performed By: #### C BC ####[facility] Gqrhiihcxs17[address] [place], [place] [address]Dr. Airam Tripathi Neutrophils/100 WBC (Bld) 68.6 % Normal 43.0-75.0 [facility] Comment on above: Performed By: #### C BC ####[facility] Zcannpqsur6942 [place] [address]Dr. Airam Tripathi Platelet mean volume (Bld) [Entitic vol] 8.9 fL Critically low 9.5-13.5 [facility] Comment on above: Performed By: #### C BC ####[facility] Dbbcacikcg2953 [place] [address]Dr. Airam Tripathi PLT 323 103/ul Normal 150-450 [facility] Comment on above: Performed By: #### C BC ####[facility] Hvlzqcplbv[address] [place], [place] [address]Dr. Airam Tripathi RBC 3.83 106/ul Critically low 4.20-5.40 [facility] Comment on above: Performed By: #### C BC ####[facility] Rdglqxkgwc234[address] [place], [place] [address]Dr. Airam Tripathi WBC 11.4 103/ul Critically high 4.0-11.0 The [facility] Comment on above: Performed By: #### C BC ####[facility] Vfasfknbhd[address] [place], [place] [address]Dr. Airam Tripathi BASO # 0.0 103/ul Normal 0.0-0.1 [facility] Comment on above: Performed By: #### C BC ####[facility] Taallojxwb[address] [place], [place] [address]Dr. Airam Tripathi Basophils/100 WBC (Bld) 0.2 % Normal 0.2-2.0 The [facility] Comment on above: Performed By: #### C BC ####[facility] Zklhpaqwve257[address] [place], [place] [address]Dr. Airam Tripathi EO # 0.1 103/ul Normal 0.0-0.7 [facility] Comment on above: Performed By: #### C BC ####[facility] Hwgjnrevyz[address] [place], [place] [address]Dr. Airam Tripathi Eosinophils/100 WBC (Bld) 0.7 % Critically low 0.9-7.0 The [facility] Comment on above: Performed By: #### C BC ####[facility] Avvsfgjjos4105 [place] [address]Dr. Airam Tripathi Erythrocyte distribution width (RBC) [Ratio] 15.4 % Critically high 11.0-15.0 [facility] Comment on above: Performed By: #### C BC ####[facility] Gmwycbaqqw76[address] [place] [address]Dr. Airam Tripathi Hematocrit (Bld) [Volume fraction] 33.6 % Critically low 36.0-48.0 [facility] Comment on above: Performed By: #### C BC ####[facility] Nvxmvdtmsh0180 [place] [address]Dr. Airam Tripathi Hemoglobin (Bld) [Mass/Vol] 10.9 g/dL Critically low 12.0-16.0 [facility] Comment on above: Performed By: #### C BC ####[facility] Ylwgfrdejs9[address] [place], [place] [address]Dr. Airam Tripathi IG # 0.04 10e3/ul Critically high 0.00-0.03 [facility] Comment on above: Performed By: #### C BC ####[facility] Kezmatilho008[address] [place], [place] [address]Dr. Airam Tripathi IG % 0.5 % Normal 0.0-0.5 [facility] Comment on above: Performed By: #### C BC ####[facility] Zbtvspplng67[address] [place], [place] [address]Dr. Airam Tripathi LYMPH # 1.1 103/ul Critically low 1.2-3.8 [facility] Comment on above: Performed By: #### C BC ####[facility] Btlapfwccy[address] [place], [place] [address]Dr. Selenaneil Tripathi Lymphocytes/100 WBC (Bld) 13.3 % Critically low 20.5-60.0 [facility] Comment on above: Performed By: #### C BC ####[facility] Myaazvapty022[address] [place], [place] [address]Dr. Selenaneil Tripathi MANUAL DIFF REQ NO Normal [facility] Comment on above: Performed By: #### C BC ####[facility] Wvzbjjccey9202 [place] [id number]. Airam Tripathi MCH (RBC) [Entitic mass] 29.1 pg Normal 26.7-34.0 [facility] Comment on above: Performed By: #### C BC ####[facility] Fzanrwaxnf7050 [place] [id number]. Airam Tripathi MCHC (RBC) [Mass/Vol] 32.4 g/dL Normal 29.9-35.2 [facility] Comment on above: Performed By: #### C BC ####[facility] Dyqtpjylxv7308 [place] [id number]. Airam Tripathi MCV (RBC) [Entitic vol] 89.6 fL Normal 81.0-99.0 [facility] Comment on above: Performed By: #### C BC ####[facility] Fdemrveoml7[address] [place], [place] [address]Dr. Airam Tripathi MONO # 0.5 103/ul Normal 0.3-0.8 [facility] Comment on above: Performed By: #### C BC ####[facility] Mnfbczzxqr9677 [place] [address]Dr. Airam Tripathi Monocytes/100 WBC (Bld) 6.4 % Normal 1.7-12.0 [facility] Comment on above: Performed By: #### C BC ####[facility] Iehnmmdbfb[address] [place], [place] [address]Dr. Selenaneil Tripathi NEUT # 6.5 103/ul Normal 1.4-6.5 [facility] Comment on above: Performed By: #### C BC ####[facility] Avmkfwalsr[address] [place], [place] [address]Dr. Airam Tripathi Neutrophils/100 WBC (Bld) 78.9 % Critically high 43.0-75.0 [facility] Comment on above: Performed By: #### C BC ####[facility] Osiyljcmfc[address] [place], [place] [address]Dr. Airam Tripathi Platelet mean volume (Bld) [Entitic vol] 9.4 fL Critically low 9.5-13.5 [facility] Comment on above: Performed By: #### C BC ####[facility] Exmqnuxpac2179 [place] [id number]. Airam Tripathi PLT 314 103/ul Normal 150-450 [facility] Comment on above: Performed By: #### C BC ####[facility] Vsutkbjgii5448 [place] [id number]. Airam Tripathi RBC 3.75 106/ul Critically low 4.20-5.40 [facility] Comment on above: Performed By: #### C BC ####[facility] Sgfauhpwrf7004 [place] [id number]. Airam Tripathi WBC 8.3 103/ul Normal 4.0-11.0 [facility] Comment on above: Performed By: #### C BC ####[facility] Rpqoceiyrm[address] [place] [address] Air[address] Deuce CT HEAD WO CONon 11-03-2022 CT HEAD WO CON Normal [facility] PROF 14(COMP METB)on 023 Albumin [Mass/Vol] 3.2 g/dL Critically low 3.4-5.0 [facility] Comment on above: Performed By: #### C MP ####[facility] Utbjeifjgx6512 [place] [address]Dr. Airam Deuce Albumin/Globulin [Mass ratio] 0.9 {ratio} Normal [facility] Comment on above: Performed By: #### C MP ####[facility] Ymzkqkoaho6835 [place] [address]Dr. Airam Deuce ALP [Catalytic activity/Vol] 109 U/L Normal 46-116 [facility] Comment on above: Performed By: #### C MP ####[facility] Alfvzuljem9555 [place] [id number]. Airam Tripathi ALT [Catalytic activity/Vol] 25 U/L Normal 14-59 [facility] Comment on above: Performed By: #### C MP ####[facility] Rxrydvxwxg1050 [place] [id number]. Airam Tripathi Anion gap [Moles/Vol] 10.9 mmol/L Normal Th e [facility] Comment on above: Performed By: #### C MP ####[facility] Cbhtxpnqwt3181 [place] [id number]. Airam Tripathi AST [Catalytic activity/Vol] 24 U/L Normal 15-37 [facility] Comment on above: Performed By: #### C MP ####[facility] Gwzhejjtwm5753 [place] [id number]. Airam Tripathi Bilirubin [Mass/Vol] 0.3 mg/dL Normal 0.2-1.0 [facility] Comment on above: Performed By: #### C MP ####[facility] Haierzqftn5225 [place] [address]Dr. Airam Tripathi Calcium [Mass/Vol] 8.6 mg/dL Normal 8.5-10.1 [facility] Comment on above: Performed By: #### C MP ####[facility] Uquapcsffs[address] [place], [place] [address]Dr. Airam Deuce Chloride [Moles/Vol] 95 mmol/L Critically low 98-107 [facility] Comment on above: Performed By: #### C MP ####[facility] Elffulmoqc[address] [place], [place] [address]Dr. Airam Tripathi CO2 [Moles/Vol] 27.8 mmol/L Normal 21.0-32.0 [facility] Comment on above: Performed By: #### C MP ####[facility] Lghrecvcgi6855 [place] [address]Dr. Airam Deuce Creatinine [Mass/Vol] 1.07 mg/dL Critically high 0.55-1.02 [facility] Comment on above: Performed By: #### C MP ####[facility] Bwlexzpvdw1361 [place] [id number]. Selenaneil Deuce EGFR-AF CYPRIOT >60 Normal >=60 [facility] Comment on above: Performed By: #### C MP ####[facility] Fbnswelsky4897 [place] [address]Dr. Airam Tripathi EGFR-NON AF CYPRIOT 52 mL/min/1.73m2 Critically low >=60 [facility] Comment on above: Performed By: #### C MP ####[facility] Nnxyqierfn1520 [place] [address]Dr. Airam Deuce Globulin (S) [Mass/Vol] 3.5 g/dL Normal [facility] Comment on above: Performed By: #### C MP ####[facility] Pmkywfwdin6056 [place] [address]Dr. Airam Deuce Glucose [Mass/Vol] 86 mg/dL Normal 74-106 [facility] Comment on above: Performed By: #### C MP ####[facility] Qmgepxwnpr6402 [place] [address]Dr. Airam Tripathi Potassium [Moles/Vol] 4.7 mmol/L Normal 3.5-5.1 [facility] Comment on above: Performed By: #### C MP ####[facility] Z[address]ynumrqc4[address] [place], [place] [address]Dr. Airam Tripathi Protein [Mass/Vol] 6.7 g/dL Normal 6.4-8.2 [facility] Comment on above: Performed By: #### C MP ####[facility] Vrynhqspst[address] [place], [place] [address]Dr. Airam Tripathi Sodium [Moles/Vol] 129 mmol/L Critically low 136-145 [facility] Comment on above: Performed By: #### C MP ####[facility] Jjkoynandx60[address] [place], [place] [address]Dr. Selenaneil Deuce Urea nitrogen [Mass/Vol] 19.0 mg/dL Critically high 7.0-18.0 [facility] Comment on above: Performed By: #### C MP ####[facility] Qlyidokdtv7594 [place] [address]Dr. Airam Tripathi Urea nitrogen/Creatinine [Mass ratio] 17.8 mg/mg Normal [facility] Comment on above: Performed By: #### C MP ####[facility] Pprkyjdvuh3032 [place] [phone]. Airam Tripathi PROF CHEM 8 (BAS METB)on Anion gap [Moles/Vol] 9.0 mmol/L Normal [facility] Comment on above: Performed By: #### B LARGE ENGINE ASSEMBLER, BMP ####[facility] Fiwewrxril64[address] [place], [place] [address]Dr. Airam Tripathi Calcium [Mass/Vol] 8.5 mg/dL Normal 8.5-10.1 [facility] Comment on above: Performed By: #### B LARGE ENGINE ASSEMBLER, BMP ####[facility] Cgvuqkpxdu[address] [place], [place] [address]Dr. Airam Tripathi Chloride [Moles/Vol] 93 mmol/L Critically low 98-107 [facility] Comment on above: Performed By: #### B LARGE ENGINE ASSEMBLER, BMP ####[facility] Werhuqpjov[address] [place], [place] [address]Dr. Airam Tripathi CO2 [Moles/Vol] 28.1 mmol/L Normal 21.0-32.0 [facility] Comment on above: Performed By: #### B LARGE ENGINE ASSEMBLER, BMP ####[facility] Gvmvqbkkam[address] [place], [place] [address]Dr. Airam Tripathi Creatinine [Mass/Vol] 1.17 mg/dL Critically high 0.55-1.02 [facility] Comment on above: Performed By: #### B LARGE ENGINE ASSEMBLER, BMP ####[facility] Yzfuephkxn[address] [place], [place] [address]Dr. Airam Tripathi EGFR-AF CYPRIOT 57 mL/min/1.73m2 Critically low >=60 [facility] Comment on above: Performed By: #### B LARGE ENGINE ASSEMBLER, BMP ####[facility] Pamrwkfels[address] [place], [place] [address]Dr. Airam Tripathi EGFR-NON AF CYPRIOT 47 mL/min/1.73m2 Critically low >=60 [facility] Comment on above: Performed By: #### B LARGE ENGINE ASSEMBLER, BMP ####[facility] Fleixncrek[address] [place], [place] [address]Dr. Selenaneil Tripathi Glucose [Mass/Vol] 107 mg/dL Critically high 74-106 [facility] Comment on above: Performed By: #### B LARGE ENGINE ASSEMBLER, BMP ####[facility] Pqkmzbytte[address] [place], [place] [address]Dr. Airam Tripathi Potassium [Moles/Vol] 4.1 mmol/L Normal 3.5-5.1 [facility] Comment on above: Performed By: #### B LARGE ENGINE ASSEMBLER, BMP ####[facility] Tenenjacyc[address] [place], [place] [address]Eb. Airam Tripathi Sodium [Moles/Vol] 126 mmol/L Critically low 136-145 Th e [facility] Comment on above: Performed By: #### B LARGE ENGINE ASSEMBLER, BMP ####[facility] Ipzzuyofdl0904 [place], [place] [address]Ge. Airam Tripathi Urea nitrogen [Mass/Vol] 20.0 mg/dL Critically high 7.0-18.0 [facility] Comment on above: Performed By: #### B LARGE ENGINE ASSEMBLER, BMP ####[facility] Ynhpjchvzf3243 [place] [id number]. Airam Tripathi Urea nitrogen/Creatinine [Mass ratio] 17.1 mg/mg Normal [facility] Comment on above: Performed By: #### B LARGE ENGINE ASSEMBLER, BMP ####[facility] Scfwtihdml5849 [place] [id number]. Airam Tripathi XR CHEST 1 Von 11-03-2022 XR CHEST 1 V Normal [facility] Activated partial thrombopla stin time (aPTT) in platelet poor plasma by coagulation aOrdered By: Favian Helm on 10-28-2022 aPTT Coag (PPP) [Time] 31.7 s 25.1-36.5 [facility] Alanine aminotransferase [En zymatic activity/volume] in Serum or PlasmaOrdered By: Favian Helm on 10-28-2022 ALT [Catalytic activity/Vol] 14 U/L 7-52 [facility] Albumin [Mass/volume] in Ser um or Plasma by Bromocresol green (BCG) dye binding methoOrdered By: Favian Helm on 10-28-2022 Albumin BCG dye [Mass/Vol] 3.6 g/dL 3.5-5.7 [facility] Alkaline phosphatase [Enzyma tic activity/volume] in Serum or PlasmaOrdered By: Favian Helm on 10-28-2022 ALP [Catalytic activity/Vol] 84 U/L 34-104 [facility] Aspartate aminotransferase [ Enzymatic activity/volume] in Serum or PlasmaOrdered By: Favian Helm on 10-28-2022 AST [Catalytic activity/Vol] 21 U/L 13-39 [facility] B-Type Natriuretic Peptideon 10-28-2022 Natriuretic peptide B (Bld) [Mass/Vol] 551.0 pg/mL High 5-100 [facility] Comment on above: Result Comment: PERF ORMED BY: [place] [address] PATHOLOGIST BUY BOAT OPERATOR TANNER GAVIN M.D. Performed By: #### V ACS96CMC, MG, BMP, JOSE, FE and TIBC, RETIC #### [facility] [address] Basophils Auto (Bld) [#/Vol] Ordered By: Favian Helm on 10-28-2022 Basophils (Bld) [#/Vol] 0.0 10*3/uL 0.0-0.2 [facility] Basophils/100 WBC Auto (Bld) Ordered By: Favian Helm on 10-28-2022 Basophils/100 WBC (Bld) 0.4 % . [facility] Bilirubin.total [Mass/volume ] in Serum or PlasmaOrdered By: Favian Helm on 10-28-2022 Bilirubin [Mass/Vol] 0.3 mg/dL 0.3-1.0 [facility] CT head/brain wo conon 10-28 CT head/brain wo con [facility] [address] [place] [address] CT Scan Report Signed Patient: Mabel Moser MR#: [id number] : 1960 Acct:[id number] Age/Sex: 62 / F ADM Date: 10/28/22 Loc: ER Room: Type: [facility] ER Attending Dr: Copies to: Favian Helm [...] Baljinder Ball M.D.10/28/2022 7:46 PM Dictation Location: [place] [address] Transcribed By: [facility] 10/28/221945 Dictated By: Baljinder Ball DO 10/28/221934 Signed By: 10/28/221945 Normal [facility] Calcium [Mass/volume] in Ser um or PlasmaOrdered By: Favian Helm on 10-28-2022 Calcium [Mass/Vol] 8.2 mg/dL 8.6-10.3 [facility] Carbon dioxide, total [Moles /volume] in Serum or PlasmaOrdered By: Favian Helm on 10-28-2022 CO2 [Moles/Vol] 25.7 mmol/L 21.0-31.0 [facility] Chloride [Moles/volume] in S andrea or PlasmaOrdered By: Favian Helm on 10-28-2022 Chloride [Moles/Vol] 98 mmol/L 98-107 [facility] Complete Blood Count Auto Di ffon 10-28-2022 Basophils (Bld) [#/Vol] 0.0 10*3/uL Normal 0.0-0.2 [facility] Comment on above: Result Comment: PERF ORMED BY: [facility] [address] [place] [address] PATHOLOGIST [employer] OPER[employer] TANNER GAVIN M.D. Performed By: #### V [id number], MG, BMP, JOSE, FE and TIBC, RETIC #### [address] Basophils/100 WBC (Bld) 0.4 % Normal . [facility] Comment on above: Performed By: #### V [id number], MG, BMP, JOSE, FE and TIBC, RETIC #### [address] Eosinophils (Bld) [#/Vol] 0.1 10*3/uL Normal 0.0-0.45 [facility] Comment on above: Performed By: #### V [id number], MG, BMP, JOSE, FE and TIBC, RETIC #### [address] Eosinophils/100 WBC (Bld) 1.0 % Normal . [facility] Comment on above: Performed By: #### V [id number], MG, BMP, JOSE, FE and TIBC, RETIC #### [address] Erythrocyte distribution width (RBC) [Ratio] 16.5 % High 11.9-15.3 [facility] Comment on above: Performed By: #### V [id number], MG, BMP, JOSE, FE and TIBC, RETIC #### [address] Hematocrit (Bld) [Volume fraction] 29.9 % Low 34.0-46.4 [facility] Comment on above: Performed By: #### V [id number], MG, BMP, JOSE, FE and TIBC, RETIC #### [address] Hemoglobin (Bld) [Mass/Vol] 9.6 g/dL Low 11.8-15.4 [facility] Comment on above: Performed By: #### V [id number], MG, BMP, JOSE, FE and TIBC, RETIC #### [address] Lymphocytes (Bld) [#/Vol] 0.8 10*3/uL Low 1.00-4.8 [facility] Comment on above: Performed By: #### V [id number], MG, BMP, JOSE, FE and TIBC, RETIC #### [address] Lymphocytes/100 WBC (Bld) 12.8 % Normal . [facility] Comment on above: Performed By: #### V [id number], MG, BMP, JOSE, FE and TIBC, RETIC #### [address] MCH (RBC) [Entitic mass] 28.3 pg Normal 24.7-34.3 [facility] Comment on above: Performed By: #### V [id number], MG, BMP, JOSE, FE and TIBC, RETIC #### [address] MCV (RBC) [Entitic vol] 88.3 fL Normal 80-100 [facility] Comment on above: Performed By: #### V [id number], MG, BMP, JOSE, FE and TIBC, RETIC #### [address] Mean Corpuscular HGB Conc 32.0 g/dL Normal 32.0-35.0 [facility] Comment on above: Performed By: #### V [id number], MG, BMP, JOSE, FE and TIBC, RETIC #### [address] Monocytes (Bld) [#/Vol] 0.2 10*3/uL Normal 0.0-0.8 [facility] Comment on above: Performed By: #### V [id number], MG, BMP, JOSE, FE and TIBC, RETIC #### [address] Monocytes/100 WBC (Bld) 17.29 % Normal 0.00-20.00 [facility] Comment on above: Performed By: #### V [id number], MG, BMP, JOSE, FE and TIBC, RETIC #### [address] Monocytes/100 WBC (Bld) 2.5 % Normal . [facility] Comment on above: Performed By: #### V [id number], MG, BMP, JOSE, FE and TIBC, RETIC #### [address] Neutrophils (Bld) [#/Vol] 5.5 10*3/uL Normal 1.8-7.7 [facility] Comment on above: Performed By: #### V IIV71FCA, MG, BMP, JOSE, FE and TIBC, RETIC #### [address] Neutrophils/100 WBC (Bld) 83.3 % Normal . [facility] Comment on above: Performed By: #### V [id number], MG, BMP, JOSE, FE and TIBC, RETIC #### [address] NRBC% 0.0 /100{WBC} Normal 0-0.5 [facility] Comment on above: Performed By: #### V [id number], MG, BMP, JOSE, FE and TIBC, RETIC #### [address] Platelet mean volume (Bld) [Entitic vol] 7.3 fL Normal 6.3-10.7 [facility] Comment on above: Performed By: #### V [id number], MG, BMP, JOSE, FE and TIBC, RETIC #### [address] Platelets (Bld) [#/Vol] 260 10*3/uL Normal 150-450 [facility] Comment on above: Performed By: #### V [id number], MG, BMP, JOSE, FE and TIBC, RETIC #### [address] RBC (Bld) [#/Vol] 3.38 10*6/uL Low 3.60-5.00 [facility] Comment on above: Performed By: #### V [id number], MG, BMP, JOSE, FE and TIBC, RETIC #### [address] WBC (Bld) [#/Vol] 6.6 10*3/uL Normal 3.8-11.6 [facility] Comment on above: Performed By: #### V [id number], MG, BMP, JOSE, FE and TIBC, RETIC #### [address] Comprehensive Metabolic Pane sameer 10-28-2022 Albumin [Mass/Vol] 3.6 g/dL Normal 3.5-5.7 [facility] Comment on above: Performed By: #### V [id number], MG, BMP, JOSE, FE and TIBC, RETIC #### [address] Albumin/Globulin [Mass ratio] 1.6 {ratio} Normal [facility] Comment on above: Performed By: #### V [id number], MG, BMP, JOSE, FE and TIBC, RETIC #### [address] ALP [Catalytic activity/Vol] 84 U/L Normal 34-104 [facility] Comment on above: Performed By: #### V AOR11VPR, MG, BMP, JOSE, FE and TIBC, RETIC #### [address] ALT [Catalytic activity/Vol] 14 U/L Normal 7-52 [facility] Comment on above: Performed By: #### V [id number], MG, BMP, JOSE, FE and TIBC, RETIC #### [address] Anion gap [Moles/Vol] 10.0 mmol/L Normal 6.0-15.0 [facility] Comment on above: Performed By: #### V [id number], MG, BMP, JOSE, FE and TIBC, RETIC #### [facility] [address] AST [Catalytic activity/Vol] 21 U/L Normal 13-39 [facility] Comment on above: Performed By: #### V [id number], MG, BMP, JOSE, FE and TIBC, RETIC #### [facility] [address] Bilirubin [Mass/Vol] 0.3 mg/dL Normal 0.3-1.0 [facility] Comment on above: Performed By: #### V [id number], MG, BMP, JOSE, FE and TIBC, RETIC #### [facility] [address] [place] [address] Calcium [Mass/Vol] 8.2 mg/dL Low 8.6-10.3 [facility] Comment on above: Performed By: #### V [id number], MG, BMP, JOSE, FE and TIBC, RETIC #### [address] Chloride [Moles/Vol] 98 mmol/L Normal 98-107 [facility] Comment on above: Performed By: #### V [id number], MG, BMP, JOSE, FE and TIBC, RETIC #### [address] CO2 [Moles/Vol] 25.7 mmol/L Normal 21.0-31.0 [facility] Comment on above: Performed By: #### V [id number], MG, BMP, JOSE, FE and TIBC, RETIC #### [address] Creatinine [Mass/Vol] 1.23 mg/dL High 0.60-1.20 [facility] Comment on above: Performed By: #### V [id number], MG, BMP, JOSE, FE and TIBC, RETIC #### [facility] [address] [place] [address] [place] Creatinine Clr Calc Pharmacy 48.79 [facility] Comment on above: Performed By: #### V [id number], MG, BMP, JOSE, FE and TIBC, RETIC #### [facility] [address] GFR/1.73 sq M.predicted MDRD (S/P/Bld) [Vol rate/Area] 50.309 mL/min/{1.73_m2} [facility] Comment on above: Performed By: #### V ART73CVR, MG, BMP, JOSE, FE and TIBC, RETIC #### [facility] [address] Globulin (S) [Mass/Vol] 2.3 g/dL [facility] Comment on above: Performed By: #### V [id number], MG, BMP, JOSE, FE and TIBC, RETIC #### [address] Glucose [Mass/Vol] 98 mg/dL Normal 70-100 [facility] Comment on above: Result Comment: [facility] Glucose Reference Range is dependent on time and content of last meal. Glucose of more than 200 mg/dL in a nonstressed, ambulatory subject supports the diagnosis of Diabetes Mellitus. ADA recommended reference range Performed By: #### V [id number], MG, BMP, JOSE, FE and TIBC, RETIC #### [address] Potassium [Moles/Vol] 4.7 mmol/L Normal 3.5-5.1 [facility] Comment on above: Performed By: #### V [id number], MG, BMP, JOSE, FE and TIBC, RETIC #### [facility] [address] Protein [Mass/Vol] 5.9 g/dL Low 6.4-8.9 [facility] Comment on above: Performed By: #### V [id number], MG, BMP, JOSE, FE and TIBC, RETIC #### [address] Sodium [Moles/Vol] 129 mmol/L Low 136-145 [facility] Comment on above: Performed By: #### V [id number], MG, BMP, JOSE, FE and TIBC, RETIC #### [address] Urea nitrogen [Mass/Vol] 36 mg/dL High 7-25 [facility] Comment on above: Performed By: #### V [id number], MG, BMP, JOSE, FE and TIBC, RETIC #### [address] Creatine Kinaseon 10-28-2022 CK [Catalytic activity/Vol] 45 U/L Normal [facility] Comment on above: Performed By: #### V [id number], MG, BMP, JOSE, FE and TIBC, RETIC #### [address] Creatine kinase [Enzymatic a ctivity/volume] in Serum or PlasmaOrdered By: Favian Helm on 10-28-2022 CK [Catalytic activity/Vol] 45 U/L [facility] Creatinine [Mass/volume] in Serum or PlasmaOrdered By: Favian Helm on 10-28-2022 Creatinine [Mass/Vol] 1.23 mg/dL 0.60-1.20 [facility] ECG 12 lead ECGon 10-28-2022 ECG 12 lead ECG [facility] [address] [place] [address] [place] [address] Electrocardiograph Report Signed Patient: Mabel Moser MR#: [id number] : 1960 Acct:[id number] Age/Sex: 62 / F ADM Date: 10/28/22 Loc: ER Room: Type: [facility] ER Attending Dr: Ordering Provider: Favian [...] normal variant Confirmed by Chris MAURO DO ([id number]) on 10/28/2022 8:40:44 PM Referred By: Electronically Signed By:Chris MARUO DO Transcribed By: MUS Signed By Chris Mauro DO 0 10/28/222039 Normal [facility] Eosinophils Auto (Bld) [#/Vo l]Ordered By: Favian Helm on 10-28-2022 Eosinophils (Bld) [#/Vol] 0.1 10*3/uL 0.0-0.45 [facility] Eosinophils/100 WBC Auto (Bl d)Ordered By: Favian Helm on 10-28-2022 Eosinophils/100 WBC (Bld) 1.0 % . [facility] Erythrocyte distribution wid th Auto (RBC) [Ratio]Ordered By: Favian Helm on 10-28-2022 Erythrocyte distribution width (RBC) [Ratio] 16.5 % 11.9-15.3 [facility] Globulin Calc (S) [Mass/Vol] Ordered By: Favian Helm on 10-28-2022 Globulin (S) [Mass/Vol] 2.3 g/dL [facility] Glucose [Mass/volume] in Ser um or PlasmaOrdered By: Favian Helm on 10-28-2022 Glucose [Mass/Vol] 98 mg/dL 70-100 [facility] Comment on above: ADA recommended refe rence rangeRandom Glucose Reference Range is dependent on time and content of last meal. Glucose of more than 200 mg/dL in a nonstressed, ambulatory subject supports the diagnosis of Diabetes Mellitus. Hematocrit Auto (Bld) [Volum e fraction]Ordered By: Favian Helm on 10-28-2022 Hematocrit (Bld) [Volume fraction] 29.9 % 34.0-46.4 [facility] Hemoglobin [Mass/volume] in BloodOrdered By: Favian Helm on 10-28-2022 Hemoglobin (Bld) [Mass/Vol] 9.6 g/dL 11.8-15.4 [facility] Laboratory - CoagulationOrde red By: Favian Helm on 10-28-2022 PT Coag (PPP) [Time] 11.0 s 9.0-12.9 [facility] Leukocytes [#/volume] correc nicol for nucleated erythrocytes in Blood by Automated counOrdered By: Favian Helm on 10-28-2022 WBC corrected for nucl RBC Auto (Bld) [#/Vol] 6.6 10*3/uL 3.8-11.6 [facility] Lymphocytes Auto (Bld) [#/Vo l]Ordered By: Favian Helm on 10-28-2022 Lymphocytes (Bld) [#/Vol] 0.8 10*3/uL 1.00-4.8 [facility] Lymphocytes/100 WBC Auto (Bl d)Ordered By: Favian Helm on 10-28-2022 Lymphocytes/100 WBC (Bld) 12.8 % . [facility] MCH Auto (RBC) [Entitic mass ]Ordered By: Favian Helm on 10-28-2022 MCH (RBC) [Entitic mass] 28.3 pg 24.7-34.3 [facility] MCHC Auto (RBC) [Mass/Vol]Or dered By: Favian Helm on 10-28-2022 MCHC (RBC) [Mass/Vol] 32.0 g/dL 32.0-35.0 [facility] MCV Auto (RBC) [Entitic vol] Ordered By: Favian Helm on 10-28-2022 MCV (RBC) [Entitic vol] 88.3 fL 80-100 [facility] Magnesiumon 10-28-2022 Magnesium [Mass/Vol] 1.9 mg/dL Normal 1.9-2.7 [facility] Comment on above: Result Comment: PERF ORMED BY: [facility] [address] [place] [address] PATHOLOGIST [employer] OPERATOR TANNER GAVIN M.D. Performed By: #### V [id number], MG, BMP, JOSE, FE and TIBC, RETIC #### [address] Magnesium [Mass/volume] in S andrea or PlasmaOrdered By: Favian Helm on 10-28-2022 Magnesium [Mass/Vol] 1.9 mg/dL 1.9-2.7 [facility] Monocyte distribution width [Entitic volume] in Blood by AutomatedOrdered By: Favian Helm on 10-28-2022 Monocyte distribution width Auto (Bld) [Entitic vol] 17.29 % 0.00-20.00 [facility] Monocytes Auto (Bld) [#/Vol] Ordered By: Favian Helm on 10-28-2022 Monocytes (Bld) [#/Vol] 0.2 10*3/uL 0.0-0.8 [facility] Monocytes/100 WBC Auto (Bld) Ordered By: Favian Helm on 10-28-2022 Monocytes/100 WBC (Bld) 2.5 % . [facility] Natriuretic peptide B [Mass/ Vol]Ordered By: Favian Helm on 10-28-2022 Natriuretic peptide B (Bld) [Mass/Vol] 551.0 pg/mL 5-100 [facility] Neutrophils Auto (Bld) [#/Vo l]Ordered By: Favian Helm on 10-28-2022 Neutrophils (Bld) [#/Vol] 5.5 10*3/uL 1.8-7.7 [facility] Neutrophils/100 WBC Auto (Bl d)Ordered By: Favian Helm on 10-28-2022 Neutrophils/100 WBC (Bld) 83.3 % . [facility] No Panel InformationOrdered By: Favian Helm on 10-28-2022 Estimated GFR (CKD-EPI) 50.309 mL/Min [facility] Creatinine Clearance (Chem 48.79 [facility] Nucleated erythrocytes [Pres ence] in Blood by Automated countOrdered By: Favian Helm on 10-28-2022 Nucleated RBC Auto Ql (Bld) 0.0 /100{WBC} 0-0.5 [facility] Office Visiton 10-28-2022 Follow-up visit [id number] Loren Moser 1960 F Date Provider Department Center 10/28/2022 RHIANNON MEDINA CARD [facility] No family history on file Level of Service:24026 SC OFFICE/OUTPATIENT ESTABLISHED MOD MDM 30-39 MIN Normal [facility] Partial Thromboplastin Timeo n 10-28-2022 aPTT Coag (Bld) [Time] 31.7 s Normal 25.1-36.5 [facility] Comment on above: Result Comment: PERF ORMED BY: [facility] [address] [place] [address] PATHOLOGIST [employer] OPERATOR TANNER GAVIN M.D. Performed By: #### V [id number], MG, BMP, JOSE, FE and TIBC, RETIC #### [facility] [address] Platelet mean volume Auto (B ld) [Entitic vol]Ordered By: Favian Helm on 10-28-2022 Platelet mean volume (Bld) [Entitic vol] 7.3 fL 6.3-10.7 [facility] Platelet poor plasma interna tional normalized ratio (INR) by coagulation assay (relatOrdered By: Favian Helm on 10-28-2022 INR Coag (PPP) [Relative time] 1.0 {INR} [facility] Comment on above: INR Therapeutic Rang [...] 10-28-2022 Platelets (Bld) [#/Vol] 260 10*3/uL 150-450 [facility] Potassium [Moles/volume] in Serum or PlasmaOrdered By: Favian Helm on 10-28-2022 Potassium [Moles/Vol] 4.7 mmol/L 3.5-5.1 [facility] Protein [Mass/volume] in Ser um or PlasmaOrdered By: Favian Helm on 10-28-2022 Protein [Mass/Vol] 5.9 g/dL 6.4-8.9 [facility] Prothrombin Time INRon 10-28 INR Coag (PPP) [Relative time] 1.0 {INR} Normal [facility] Comment on above: Result Comment: INR [...] 3 - 4.5 Performed By: #### V [id number], MG, BMP, JOSE, FE and TIBC, RETIC #### [address] PT Coag (PPP) [Time] 11.0 s Normal 9.0-12.9 [facility] Comment on above: Performed By: #### V [id number], MG, BMP, JOSE, FE and TIBC, RETIC #### [address] RBC Auto (Bld) [#/Vol]Ordere d By: Favian Helm on 10-28-2022 RBC (Bld) [#/Vol] 3.38 10*6/uL 3.60-5.00 [facility] Serum or plasma albumin/glob ulin mass ratioOrdered By: Favian Helm on 10-28-2022 Albumin/Globulin [Mass ratio] 1.6 {ratio} [facility] Serum or plasma anion gap de terminationOrdered By: Favian Helm on 10-28-2022 Anion gap [Moles/Vol] 10.0 mmol/L 6.0-15.0 [facility] Sodium [Moles/volume] in Ser um or PlasmaOrdered By: Favian Helm on 10-28-2022 Sodium [Moles/Vol] 129 mmol/L 136-145 [facility] Troponin I High Sensitivityo n 10-28-2022 Troponin I High Sensitivity 5.8 pg/mL Normal 0.0-15.0 [facility] Comment on above: Result Comment: PERF ORMED BY: [place] [address] PATHOLOGIST [employer] OPERATOR TANNER GAVIN M.D. Performed By: #### V [id number], MG, BMP, JOSE, FE and TIBC, RETIC #### [facility] [address] [place] [id number] [facility] Troponin I.cardiac [Mass/vol ume] in Serum or Plasma by Detection limit <= 0.01 ng/Ordered By: Favian Helm on 10-28-2022 Troponin I.cardiac DL <= 0.01 ng/mL [Mass/Vol] 5.8 pg/mL 0.0-15.0 [facility] Urea nitrogen [Mass/volume] in Serum or PlasmaOrdered By: Favian Helm on 10-28-2022 Urea nitrogen [Mass/Vol] 36 mg/dL 7-25 [facility] WBC Auto (Bld) [#/Vol]Ordere d By: Favian Helm on 10-28-2022 WBC (Bld) [#/Vol] 6.6 10*3/uL 3.8-11.6 [facility] XR chest 2V*on 10-28-2022 XR chest 2V* [facility] [address] [place] [address] [place] [address] XRay Report Signed Patient: Mabel Moser MR#: [id number] : 1960 Acct:[id number] Age/Sex: 62 / F ADM Date: 10/28/22 Loc: ER Room: Type: [facility] ER Attending Dr: Copies to: Favian Helm PA-C Ordering Provider: Favian Helm PA-C Date of Service: 10/28/22 XR/XR chest 2V*: Shortness of Breath/Dyspnea Plain film chest 2 view HISTORY: Fluid overload. Shortness of breath. Headache. COMPARISON: 08/31/2018 FINDINGS: SUPPORT DEVICES: None POSTSURGICAL CHANGES: Right Gdcrgx-l-Pufh intact with tip overlying the distal SVC. HEART: Within normal limits PULMONARY RAI: Within normal limits MEDIASTINUM: Unremarkable LUNGS AND PLEURA: No acute lung process, pleural effusion or pneumothorax identified. BONY STRUCTURES: Intact ADDITIONAL FINDINGS None XR/XR chest 2V* IMPRESSION: No acute process. Impression dictated by: Baljinder Ball M.D.10/28/2022 7:50 PM Dictation Location: [place] [address] Transcribed By: NICOLAS 10/28/221949 Dictated By: Baljinder Ball DO 10/28/221945 Signed By: 10/28/221949 [facility] BNPon 10-26-2022 Natriuretic peptide B (Bld) [Mass/Vol] 2657.0 pg/mL Critically high <=900.0 [facility] Comment on above: Performed By: #### C MP, BNP ####[facility] [address] [place], [place] [address]Dr. Airam Tripathi CBC AUTO DIFFon 10-26-2022 BASO # 0.0 103/ul Normal 0.0-0.1 [facility] Comment on above: Performed By: #### C BC ####[facility] [address] [place], [place] [address]Dr. Airam Tripathi Basophils/100 WBC (Bld) 0.5 % Normal 0.2-2.0 [facility] Comment on above: Performed By: #### C BC ####[facility] [address] [place], [place] [address]Dr. Airam Tripathi EO # 0.3 103/ul Normal 0.0-0.7 [facility] Comment on above: Performed By: #### C BC ####[facility] [address] [place], [place] [address]Dr. Airam Tripathi Eosinophils/100 WBC (Bld) 4.8 % Normal 0.9-7.0 [facility] Comment on above: Performed By: #### C BC ####[facility] [address] [place], [place] [address]Dr. Airam Tripathi Erythrocyte distribution width (RBC) [Ratio] 15.5 % Critically high 11.0-15.0 [facility] Comment on above: Performed By: #### C BC ####[facility] [address] [place], [place] [address]Dr. Airam Tripathi Hematocrit (Bld) [Volume fraction] 27.7 % Critically low 36.0-48.0 [facility] Comment on above: Performed By: #### C BC ####[facility] [address] [place] [id number]. Airam Tripathi Hemoglobin (Bld) [Mass/Vol] 8.8 g/dL Critically low 12.0-16.0 [facility] Comment on above: Performed By: #### C BC ####[facility] [address] [place] [id number]. Airam Tripathi IG # 0.03 10e3/ul Normal 0.00-0.03 [facility] Comment on above: Performed By: #### C BC ####[facility] [address] [place] [id number]. Airam Tripathi IG % 0.5 % Normal 0.0-0.5 [facility] Comment on above: Performed By: #### C BC ####[facility] [address] [place] [address]Dr. Airam Tripathi LYMPH # 1.6 103/ul Normal 1.2-3.8 [facility] Comment on above: Performed By: #### C BC ####[facility] [address] [place] [address]Dr. Airam Tripathi Lymphocytes/100 WBC (Bld) 25.5 % Normal 20.5-60.0 [facility] Comment on above: Performed By: #### C BC ####[facility] [address] [place] [id number]. Airam Tripathi MANUAL DIFF REQ NO Normal [facility] Comment on above: Performed By: #### C BC ####[facility] [address] [place] [id number]. Airam Tripathi MCH (RBC) [Entitic mass] 29.0 pg Normal 26.7-34.0 [facility] Comment on above: Performed By: #### C BC ####[facility] [address] [place] [id number]. Airam Tripathi MCHC (RBC) [Mass/Vol] 31.8 g/dL Normal 29.9-35.2 [facility] Comment on above: Performed By: #### C BC ####[facility] [address] [place] [id number]. Airam Tripathi MCV (RBC) [Entitic vol] 91.4 fL Normal 81.0-99.0 [facility] Comment on above: Performed By: #### C BC ####[facility] [address] [place] [id number]. Airam Tripathi MONO # 0.5 103/ul Normal 0.3-0.8 [facility] Comment on above: Performed By: #### C BC ####[facility] [address] [place] [address]Dr. Airam Deuce Monocytes/100 WBC (Bld) 7.5 % Normal 1.7-12.0 [facility] Comment on above: Performed By: #### C BC ####[facility] [address] [place], [place] [address]Dr. Airam Tripathi NEUT # 3.9 103/ul Normal 1.4-6.5 [facility] Comment on above: Performed By: #### C BC ####[facility] [address] [place], [place] [address]Dr. Airam Deuce Neutrophils/100 WBC (Bld) 61.2 % Normal 43.0-75.0 [facility] Comment on above: Performed By: #### C BC ####[facility] [address] [place], [place] [address]Dr. Airam Deuce Platelet mean volume (Bld) [Entitic vol] 9.4 fL Critically low 9.5-13.5 [facility] Comment on above: Performed By: #### C BC ####[facility] [address] [place], [place] [address]Dr. Airam Deuce PLT 247 103/ul Normal 150-450 [facility] Comment on above: Performed By: #### C BC ####[facility] A[address] [place], [place] [id number]. Airam Deuce RBC 3.03 106/ul Critically low 4.20-5.40 [facility] Comment on above: Performed By: #### C BC ####[facility] [id number] [place], [place] [id number]. Airam Tripathi WBC 6.4 103/ul Normal 4.0-11.0 [facility] Comment on above: Performed By: #### C BC ####[facility] [address] [place] [address]Dr. Airam Tripathi PROF 14(COMP METB)on 023 Albumin [Mass/Vol] 2.5 g/dL Critically low 3.4-5.0 [facility] Comment on above: Performed By: #### C MP, BNP ####[facility] Nqrdsolqei[address] [place], [place] [address]Dr. Airam Tripathi Albumin/Globulin [Mass ratio] 0.9 {ratio} Normal [facility] Comment on above: Performed By: #### C MP, BNP ####[facility] Fnbtnjqwox7[address] [place], [place] [address]Dr. Airam Tripathi ALP [Catalytic activity/Vol] 108 U/L Normal 46-116 [facility] Comment on above: Performed By: #### C MP, BNP ####[facility] Qxgpjxsvbn[address] [place], [place] [address]Dr. Airam Tripathi ALT [Catalytic activity/Vol] 20 U/L Normal 14-59 [facility] Comment on above: Performed By: #### C MP, BNP ####[facility] Vckzliixpj[address] [place], [place] [address]Dr. Airam Tripathi Anion gap [Moles/Vol] 10.4 mmol/L Normal [facility] Comment on above: Performed By: #### C MP, BNP ####[facility] Ahcezdzzjc[address] [place], [place] [address]Dr. Airam Tripathi AST [Catalytic activity/Vol] 20 U/L Normal 15-37 [facility] Comment on above: Performed By: #### C MP, BNP ####[facility] Lhlelnjeao[address] [place], [place] [address]Dr. Airam Tripathi Bilirubin [Mass/Vol] 0.2 mg/dL Normal 0.2-1.0 [facility] Comment on above: Performed By: #### C MP, BNP ####[facility] Sp[address]kmllmh[address] [place] [address]Dr. Airam Tripathi Calcium [Mass/Vol] 8.0 mg/dL Critically low 8.5-10.1 Th [facility] Comment on above: Performed By: #### C MP, BNP ####[facility] Qywxepivaz[address] [place], [place] [address]Dr. Airam Tripathi Chloride [Moles/Vol] 100 mmol/L Normal 98-107 [facility] Comment on above: Performed By: #### C MP, BNP ####[facility] Smuilmiwyi[address] [place], [place] [address]Dr. Airam Tripathi CO2 [Moles/Vol] 28.6 mmol/L Normal 21.0-32.0 The [facility] Comment on above: Performed By: #### C MP, BNP ####[facility] Lmsbwlxerm6[address] [place], [place] [address]Dr. Airam Tripathi Creatinine [Mass/Vol] 1.66 mg/dL Critically high 0.55-1.02 [facility] Comment on above: Performed By: #### C MP, BNP ####[facility] Dvtvxzgxpw[address] [place], [place] [address]Dr. Airam Tripathi EGFR-AF CYPRIOT 38 mL/min/1.73m2 Critically low >=60 The [facility] Comment on above: Performed By: #### C MP, BNP ####[facility] Tkwkzgvyif98[address] [place], [place] [address]Dr. Airam Tripathi EGFR-NON AF CYPRIOT 32 mL/min/1.73m2 Critically low >=60 The [facility] Comment on above: Performed By: #### C MP, BNP ####[facility] Erumkxbifm62[address] [place], [place] [address]Dr. Airam Tripathi Globulin (S) [Mass/Vol] 2.8 g/dL Normal The [facility] Comment on above: Performed By: #### C MP, BNP ####[facility] Pchwhkpxht[address] [place], [place] [address]Dr. Airam Tripathi Glucose [Mass/Vol] 102 mg/dL Normal 74-106 The [facility] Comment on above: Performed By: #### C MP, BNP ####[facility] Gdrveogpao[address] [place], [place] [address]Dr. Airam Tripathi Potassium [Moles/Vol] 5.0 mmol/L Normal 3.5-5.1 [facility] Comment on above: Performed By: #### C MP, BNP ####[facility] Duwjkmomqv9[address] [place], [place] [address]Dr. Airam Tripathi Protein [Mass/Vol] 5.3 g/dL Critically low 6.4-8.2 Th [facility] Comment on above: Performed By: #### C MP, BNP ####[facility] Xygwoajjxa[address] [place], [place] [address]Dr. Airam Tripathi Sodium [Moles/Vol] 134 mmol/L Critically low 136-145 Th [facility] Comment on above: Performed By: #### C MP, BNP ####[facility] Vjmnjncqon[address] [place], [place] [address]Dr. Airam Tripathi Urea nitrogen [Mass/Vol] 45.0 mg/dL Critically high 7.0-18.0 [facility] Comment on above: Performed By: #### C MP, BNP ####[facility] Oufyotenbt12[address] [place], [place] [address]Dr. Airam Tripathi Urea nitrogen/Creatinine [Mass ratio] 27.1 mg/mg Normal [facility] Comment on above: Performed By: #### C MP, BNP ####[facility] Niggjbvcdl8157[address] [place], [place] [address]Dr. Airam Tripathi BNPon 10-25-2022 Natriuretic peptide B (Bld) [Mass/Vol] 4569.0 pg/mL Critically high <=900.0 [facility] Comment on above: Performed By: #### C MP, BNP ####[facility] Dsrjampuhw88[address] [place], [place] [address]Dr. Airam Tripathi CBC AUTO DIFFon 10-25-2022 BASO # 0.0 103/ul Normal 0.0-0.1 [facility] Comment on above: Performed By: #### C BC ####[facility] Srrtkmipkn[address] [place], [place] [address]Dr. Airam Tripathi Basophils/100 WBC (Bld) 0.5 % Normal 0.2-2.0 The [facility] Comment on above: Performed By: #### C BC ####[facility] Ufumqimacb[address] [place], [place] [address]Dr. Airam Tripathi EO # 0.3 103/ul Normal 0.0-0.7 The [facility] Comment on above: Performed By: #### C BC ####[facility] Qrjglpykno23[address] [place], [place] [address]Dr. Airam Tripathi Eosinophils/100 WBC (Bld) 5.6 % Normal 0.9-7.0 The [facility] Comment on above: Performed By: #### C BC ####[facility] Sthpezjwzi45[address] [place], [place] [address]Dr. Airam Tripathi Erythrocyte distribution width (RBC) [Ratio] 15.7 % Critically high 11.0-15.0 The [facility] Comment on above: Performed By: #### C BC ####[facility] Mhluwkscbx9[address] [place], [place] [address]Dr. Airam Tripathi Hematocrit (Bld) [Volume fraction] 30.1 % Critically low 36.0-48.0 The [facility] Comment on above: Performed By: #### C BC ####[facility] Yvspqizjxo94[address] [place], [place] [address]Dr. Airam Tripathi Hemoglobin (Bld) [Mass/Vol] 9.2 g/dL Critically low 12.0-16.0 The [facility] Comment on above: Performed By: #### C BC ####[facility] Suipuhcnby20[address] [place], [place] [address]Dr. Airam Tripathi IG # 0.03 10e3/ul Normal 0.00-0.03 The [facility] Comment on above: Performed By: #### C BC ####[facility] Jlmwogmixz[address] [place], [place] [address]Dr. Airam Tripathi IG % 0.5 % Normal 0.0-0.5 The [facility] Comment on above: Performed By: #### C BC ####[facility] [address]if[address] [place] [id number]. Airam Deuce LYMPH # 1.7 103/ul Normal 1.2-3.8 The [facility] Comment on above: Performed By: #### C BC ####[facility] Gubfijbgsp[address] [place] [address]Dr. Airam Deuce Lymphocytes/100 WBC (Bld) 28.9 % Normal 20.5-60.0 The [facility] Comment on above: Performed By: #### C BC ####[facility] Qpmtpingjz[address] [place] [address]Dr. Selenaneil Tripathi MANUAL DIFF REQ NO Normal The [facility] Comment on above: Performed By: #### C BC ####[facility] Blovmeapra[address] [place] [address]Dr. Airam Deuce MCH (RBC) [Entitic mass] 28.4 pg Normal 26.7-34.0 The [facility] Comment on above: Performed By: #### C BC ####[facility] A[address]wzpc[address] [place] [address]Dr. Airam Deuce MCHC (RBC) [Mass/Vol] 30.6 g/dL Normal 29.9-35.2 The [facility] Comment on above: Performed By: #### C BC ####[facility] [address]ipir[address] [place] [address]Dr. Airam Deuce MCV (RBC) [Entitic vol] 92.9 fL Normal 81.0-99.0 The [facility] Comment on above: Performed By: #### C BC ####[facility] Muh[address]ubgfgr[address] [place] [address]Dr. Airam Deuce MONO # 0.5 103/ul Normal 0.3-0.8 The [facility] Comment on above: Performed By: #### C BC ####[facility] Ujyytzsjbo[address] [place] [address]Dr. Airam Deuce Monocytes/100 WBC (Bld) 8.5 % Normal 1.7-12.0 The [facility] Comment on above: Performed By: #### C BC ####[facility] Xryqabngrk[address] [place] [address]Dr. Airam Tripathi NEUT # 3.2 103/ul Normal 1.4-6.5 [facility] Comment on above: Performed By: #### C BC ####[facility] Ttkeldozso[address] [place] [address]Dr. Airam Tripathi Neutrophils/100 WBC (Bld) 56.0 % Normal 43.0-75.0 [facility] Comment on above: Performed By: #### C BC ####[facility] Blmfjkogqy[address] [place] [address]Dr. Airam Tripathi Platelet mean volume (Bld) [Entitic vol] 9.4 fL Critically low 9.5-13.5 [facility] Comment on above: Performed By: #### C BC ####[facility] Wmqjbokdan[address] [place] [address]Dr. Airam Tripathi PLT 272 103/ul Normal 150-450 The [facility] Comment on above: Performed By: #### C BC ####[facility] Omygvgikgn[address] [place] [address]Dr. Airam Tripathi RBC 3.24 106/ul Critically low 4.20-5.40 [facility] Comment on above: Performed By: #### C BC ####[facility] Blkkwmqcwr65[address] [place] [address]Dr. Airam Tripathi WBC 5.8 103/ul Normal 4.0-11.0 [facility] Comment on above: Performed By: #### C BC ####[facility] Fvoziuihpv[address] [place] [address]DrKianna Airam Tripathi OSMOLALITYon 10-25-2022 Osmolality [Osmolality] 282 mosm/kg Normal 275-295 The [facility] Comment on above: Performed By: #### O SMO ####[facility] Wdybfxmacj[address] [place], [place] [address]DrKianna Airam Deuce PROF 14(COMP METB)on 023 Albumin [Mass/Vol] 2.7 g/dL Critically low 3.4-5.0 Th [facility] Comment on above: Performed By: #### C MP, BNP ####[facility] Atjjpavtqa34[address] [place] [id number]. Airam Deuce Albumin/Globulin [Mass ratio] 0.9 {ratio} Normal [facility] Comment on above: Performed By: #### C MP, BNP ####[facility] Gdioekzogr59[address] [place] [id number]. Airam Deuce ALP [Catalytic activity/Vol] 122 U/L Critically high 46-116 [facility] Comment on above: Performed By: #### C MP, BNP ####[facility] Usjzevrgna6560 [place] [address]Dr. Selenaneil Tripathi ALT [Catalytic activity/Vol] 23 U/L Normal 14-59 [facility] Comment on above: Performed By: #### C MP, BNP ####[facility] Ihkoqjcwls8832 [place] [address]Dr. Airam Tripathi Anion gap [Moles/Vol] 10.5 mmol/L Normal Th [facility] Comment on above: Performed By: #### C MP, BNP ####[facility] Kpsftarujb4846 [place] [address]Dr. Selenaneil Tripathi AST [Catalytic activity/Vol] 22 U/L Normal 15-37 [facility] Comment on above: Performed By: #### C MP, BNP ####[facility] Ofvrybnqaa4164 [place] [address]Dr. Airam Tripathi Bilirubin [Mass/Vol] 0.2 mg/dL Normal 0.2-1.0 [facility] Comment on above: Performed By: #### C MP, BNP ####[facility] Esqraqrrcb2808 [place] [address]Dr. Selenaneil Tripathi Calcium [Mass/Vol] 8.3 mg/dL Critically low 8.5-10.1 [facility] Comment on above: Performed By: #### C MP, BNP ####[facility] Jetvqcmide1096 [place] [address]Dr. Airam Tripathi Chloride [Moles/Vol] 102 mmol/L Normal 98-107 [facility] Comment on above: Performed By: #### C MP, BNP ####[facility] Jhgcvprmwx5616 [place] [address]Dr. Airam Tripathi CO2 [Moles/Vol] 29.7 mmol/L Normal 21.0-32.0 [facility] Comment on above: Performed By: #### C MP, BNP ####[facility] Wdxesebdfz26[address] [place] [address]Dr. Airam Tripathi Creatinine [Mass/Vol] 1.31 mg/dL Critically high 0.55-1.02 [facility] Comment on above: Performed By: #### C MP, BNP ####[facility] Fyvwnqjdhz1338 [place] [address]Dr. Airam Tripathi EGFR-AF CYPRIOT 50 mL/min/1.73m2 Critically low >=60 The [facility] Comment on above: Performed By: #### C MP, BNP ####[facility] Nmluszjsmc[address] [place], [place] [address]Dr. Airam Deuce EGFR-NON AF CYPRIOT 41 mL/min/1.73m2 Critically low >=60 The [facility] Comment on above: Performed By: #### C MP, BNP ####[facility] Fcbdhhlmoc37[address] [place], [place] [address]Dr. Airam Tripathi Globulin (S) [Mass/Vol] 2.9 g/dL Normal [facility] Comment on above: Performed By: #### C MP, BNP ####[facility] Mhxhocasqa29[address] [place], [place] [address]Dr. Airam Tripathi Glucose [Mass/Vol] 94 mg/dL Normal 74-106 The [facility] Comment on above: Performed By: #### C MP, BNP ####[facility] Sufggvhudj89[address] [place], [place] [address]Dr. Airam Tripathi Potassium [Moles/Vol] 4.2 mmol/L Normal 3.5-5.1 The [facility] Comment on above: Performed By: #### C MP, BNP ####[facility] Rqgjgpthpd18[address] [place], [place] [address]Dr. Airam Tripathi Protein [Mass/Vol] 5.6 g/dL Critically low 6.4-8.2 Th e [facility] Comment on above: Performed By: #### C MP, BNP ####[facility] Deqnbqxrxs5[address] [place], [place] [address]Dr. Airam Tripathi Sodium [Moles/Vol] 138 mmol/L Normal 136-145 The [facility] Comment on above: Performed By: #### C MP, BNP ####[facility] Mhvljqczln62[address] [place], [place] [address]Dr. Airam Tripathi Urea nitrogen [Mass/Vol] 33.0 mg/dL Critically high 7.0-18.0 [facility] Comment on above: Performed By: #### C MP, BNP ####[facility] Tcrzemxutf[address] [place], [place] [address]Dr. Airam Tripathi Urea nitrogen/Creatinine [Mass ratio] 25.2 mg/mg Normal [facility] Comment on above: Performed By: #### C MP, BNP ####[facility] Ozdnvetcio824[address] [place], [place] [address]Dr. Airam Tripathi BNPon 10-24-2022 Natriuretic peptide B (Bld) [Mass/Vol] 3805.0 pg/mL Critically high <=900.0 [facility] Comment on above: Performed By: #### H STROPN, BNP, CMP ####[facility] Odhxxfxwll05[address] [place], [place] [address]Dr. Airam Tripathi CBC AUTO DIFFon 10-24-2022 BASO # 0.0 103/ul Normal 0.0-0.1 The [facility] Comment on above: Performed By: #### C BC ####[facility] Giwdnuqjjx7823[address] [place], [place] [address]Dr. Airam Deuce Basophils/100 WBC (Bld) 0.3 % Normal 0.2-2.0 The [facility] Comment on above: Performed By: #### C BC ####[facility] Nmwgssblhk[address] [place], [place] [address]Dr. Airam Tripathi EO # 0.3 103/ul Normal 0.0-0.7 The [facility] Comment on above: Performed By: #### C BC ####[facility] Despkrdavt6[address] [place] [address]Dr. Airam Tripathi Eosinophils/100 WBC (Bld) 4.2 % Normal 0.9-7.0 The [facility] Comment on above: Performed By: #### C BC ####[facility] Plwfvnhklv64[address] [place], [place] [address]Dr. Airam Tripathi Erythrocyte distribution width (RBC) [Ratio] 15.6 % Critically high 11.0-15.0 The [facility] Comment on above: Performed By: #### C BC ####[facility] Nrhllbyibt[address] [place], [place] [address]Dr. Airam Tripathi Hematocrit (Bld) [Volume fraction] 30.0 % Critically low 36.0-48.0 The [facility] Comment on above: Performed By: #### C BC ####[facility] Camnbymaon08[address] [place], [place] [address]Dr. Airam Tripathi Hemoglobin (Bld) [Mass/Vol] 9.3 g/dL Critically low 12.0-16.0 The [facility] Comment on above: Performed By: #### C BC ####[facility] Tzhhuikdqf4[address] [place], [place] [address]Dr. Airam Tripathi IG # 0.03 10e3/ul Normal 0.00-0.03 The [facility] Comment on above: Performed By: #### C BC ####[facility] Uptbkyydhj[address] [place], [place] [address]Dr. Airam Tripathi IG % 0.5 % Normal 0.0-0.5 The [facility] Comment on above: Performed By: #### C BC ####[facility] Gnedxjcwpg[address] [place], [place] [address]Dr. Airam Tripathi LYMPH # 1.4 103/ul Normal 1.2-3.8 The [facility] Comment on above: Performed By: #### C BC ####[facility] Zbbfqnheze[address] [place], [place] [address]Dr. Airam Tripathi Lymphocytes/100 WBC (Bld) 22.5 % Normal 20.5-60.0 [facility] Comment on above: Performed By: #### C BC ####[facility] Pmvlckjafw9[address] [place] [id number]. Airam Tripatih MANUAL DIFF REQ NO Normal The [facility] Comment on above: Performed By: #### C BC ####[facility] Prxvqnvrng4625 [place] [id number]. Airam Tripathi MCH (RBC) [Entitic mass] 28.7 pg Normal 26.7-34.0 The [facility] Comment on above: Performed By: #### C BC ####[facility] Tcrinpemcr[address] [place] [address]Dr. Airam Tripathi MCHC (RBC) [Mass/Vol] 31.0 g/dL Normal 29.9-35.2 The [facility] Comment on above: Performed By: #### C BC ####[facility] Owevlzibfp75[address] [place] [address]Dr. Airam Tripathi MCV (RBC) [Entitic vol] 92.6 fL Normal 81.0-99.0 The [facility] Comment on above: Performed By: #### C BC ####[facility] Tuxolfffhr[address] [place], [place] [address]Dr. Airam Deuce MONO # 0.4 103/ul Normal 0.3-0.8 The [facility] Comment on above: Performed By: #### C BC ####[facility] Lzeedmvdrc[address] [place], [place] [address]Dr. Airam Deuce Monocytes/100 WBC (Bld) 7.3 % Normal 1.7-12.0 The [facility] Comment on above: Performed By: #### C BC ####[facility] Aodssvmfiz[address] [place], [place] [address]Dr. Airam Tripathi NEUT # 3.9 103/ul Normal 1.4-6.5 The [facility] Comment on above: Performed By: #### C BC ####[facility] Wjtosjnamg14[address] [place], [place] [address]Dr. Airam Deuce Neutrophils/100 WBC (Bld) 65.2 % Normal 43.0-75.0 The [facility] Comment on above: Performed By: #### C BC ####[facility] Nuurzbxvvh4798 [place] [id number]. Airam Tripathi Platelet mean volume (Bld) [Entitic vol] 9.0 fL Critically low 9.5-13.5 [facility] Comment on above: Performed By: #### C BC ####[facility] Dumnuovybs3307 [place] [address]Dr. Airam Tripathi PLT 247 103/ul Normal 150-450 [facility] Comment on above: Performed By: #### C BC ####[facility] Oxnuomxksf4516 [place] [address]Dr. Airam Tripathi RBC 3.24 106/ul Critically low 4.20-5.40 [facility] Comment on above: Performed By: #### C BC ####[facility] Gxmhuroujr029[address] [place] [address]Dr. Airam Tripathi WBC 6.0 103/ul Normal 4.0-11.0 [facility] Comment on above: Performed By: #### C BC ####[facility] Hugbgoyunn[address] [place] [address]Dr. Selenaneil Tripathi CULTURE URINEon 10-24-2022 CULTURE URINE Culture Observations : LIGHT GROWTH OF MIXED GENITAL GREGORY. NO POTENTIAL PATHOGENS SEEN. Normal The [facility] Comment on above: Performed By: #### U RCX ####[facility] Asrlqspghe8[address] [place] [address]Dr. Airam Tripathi POINT OF CARE GLUCOSEon 05 Glucose [Mass/Vol] 118 mg/dL Critically high 74-106 [facility] Comment on above: Performed By: #### P OCGLUC ####[facility] Ztpvlfysyr1029 [place] [id number]. Airam Tripathi PROF 14(COMP METB)on 023 Albumin [Mass/Vol] 3.1 g/dL Critically low 3.4-5.0 [facility] Comment on above: Performed By: #### H STROPN, BNP, CMP ####[facility] Ihvgttiwvv5519 [place] [address]Dr. Airam Tripathi Albumin/Globulin [Mass ratio] 1.0 {ratio} Normal [facility] Comment on above: Performed By: #### H STROPN, BNP, CMP ####[facility] Uzgrqdflmr9[address] [place] [address]Dr. Airam Tripathi ALP [Catalytic activity/Vol] 131 U/L Critically high 46-116 [facility] Comment on above: Performed By: #### H STROPN, BNP, CMP ####[facility] Pamdkhovof72[address] [place] [address]Dr. Airam Tripathi ALT [Catalytic activity/Vol] 26 U/L Normal 14-59 [facility] Comment on above: Performed By: #### H STROPN, BNP, CMP ####[facility] Qglubyeppl[address] [place], [place] [address]Dr. Selenaneil Tripathi Anion gap [Moles/Vol] 11.2 mmol/L Normal [facility] Comment on above: Performed By: #### H STROPN, BNP, CMP ####[facility] Rcqcndjwzf[address] [place], [place] [address]Dr. Airma Tripathi AST [Catalytic activity/Vol] 31 U/L Normal 15-37 [facility] Comment on above: Performed By: #### H STROPN, BNP, CMP ####[facility] Hkjsicgobd[address] [place], [place] [address]Dr. Airam Tripathi Bilirubin [Mass/Vol] 0.2 mg/dL Normal 0.2-1.0 [facility] Comment on above: Performed By: #### H STROPN, BNP, CMP ####[facility] Xmwiwetvhq[address] [place], [place] [address]Dr. Airam Tripathi Calcium [Mass/Vol] 8.6 mg/dL Normal 8.5-10.1 [facility] Comment on above: Performed By: #### H STROPN, BNP, CMP ####[facility] Kjxrtukdlq[address] [place], [place] [address]Dr. Airam Tripathi Chloride [Moles/Vol] 102 mmol/L Normal 98-107 [facility] Comment on above: Performed By: #### H STROPN, BNP, CMP ####[facility] Cfmmnocrhi3457 [place] [address]Dr. Airam Tripathi CO2 [Moles/Vol] 27.4 mmol/L Normal 21.0-32.0 [facility] Comment on above: Performed By: #### H STROPN, BNP, CMP ####[facility] Ifpthdhpte7256 [place] [address]Dr. Airam Tripathi Creatinine [Mass/Vol] 1.23 mg/dL Critically high 0.55-1.02 [facility] Comment on above: Performed By: #### H STROPN, BNP, CMP ####[facility] Mwptbmippx5603 [place] [address]Dr. Airam Deuce EGFR-AF CYPRIOT 54 mL/min/1.73m2 Critically low >=60 [facility] Comment on above: Performed By: #### H STROPN, BNP, CMP ####[facility] Xthtajeudh[address] [place], [place] [address]Dr. Airam Tripathi EGFR-NON AF CYPRIOT 45 mL/min/1.73m2 Critically low >=60 [facility] Comment on above: Performed By: #### H STROPN, BNP, CMP ####[facility] [id number] [place] [address]Dr. Selenaneil Tripathi Globulin (S) [Mass/Vol] 3.1 g/dL Normal [facility] Comment on above: Performed By: #### H STROPN, BNP, CMP ####[facility] [id number] [place] [address]Dr. Airam Tripathi Glucose [Mass/Vol] 90 mg/dL Normal 74-106 [facility] Comment on above: Performed By: #### H STROPN, BNP, CMP ####[facility] Sz[address]uykaud[address] [place] [address]Dr. Airam Tripathi Potassium [Moles/Vol] 5.6 mmol/L Critically high 3.5-5.1 [facility] Comment on above: Performed By: #### H STROPN, BNP, CMP ####[facility] Vljquylsle[address] [place] [address]Dr. Airam Tripathi Protein [Mass/Vol] 6.2 g/dL Critically low 6.4-8.2 Th [facility] Comment on above: Performed By: #### H STROPN, BNP, CMP ####[facility] Ajrxancsdp4[address] [place] [address]Dr. Airam Tripathi Sodium [Moles/Vol] 135 mmol/L Critically low 136-145 Th [facility] Comment on above: Performed By: #### H STROPN, BNP, CMP ####[facility] Szzhioqwje48[address] [place] [address]Dr. Airam Tripathi Urea nitrogen [Mass/Vol] 38.0 mg/dL Critically high 7.0-18.0 [facility] Comment on above: Performed By: #### H STROPN, BNP, CMP ####[facility] Geskcfohct[address] [place] [address]Dr. Airam Tripathi Urea nitrogen/Creatinine [Mass ratio] 30.9 mg/mg Normal [facility] Comment on above: Performed By: #### H STROPN, BNP, CMP ####[facility] Fomvputgeu[address] [place], [place] [address]Dr. Airam Tripathi TROPONIN, HIGH SENSITIVITYon 10-24-2022 HSTROP 8.0 pg/mL Normal 4.0-51.3 [facility] Comment on above: Result Comment: CUT- OFF POINTS HAVE BEEN ESTABLISHED BASED ON THE FOURTH UNIVERSAL DEFINITIONS OF MYOCARDIALINFARCTION. THE UPPER REFERENCE LIMIT (URL) OF TROPONIN, DEFINED THE 99TH PERCENTILE OFcTnI DISTRIBUTION IN A REFERENCE POPULATION, HAS BEEN CONFIRMED THE DECISION THRESHOLDFOR HI DIAGNOSIS. Performed By: #### H STROPN, BNP, CMP ####[facility] Dpwlcwgvge8[address] [place] [address]Dr. Airam Tripathi UA RANDOM W/MICROSCOPICon BACTERIA NONE SEEN Normal NONE SEEN [facility] Comment on above: Performed By: #### U AMIC ####[facility] Dmrhluojra16[address] [place] [address]Dr. iAram Tripathi Bilirubin Ql (U) Negative Normal NEGATIVE [facility] Comment on above: Performed By: #### U AMIC ####[facility] Gwqdakevod5[address] [place] [address]Dr. Airam Tripathi CAST NONE SEEN Normal NONE SEEN [facility] Comment on above: Performed By: #### U AMIC ####[facility] Pwppmshnzd1654 [place] [address]Dr. Airam Tripathi Clarity (U) CLEAR Normal CLEAR [facility] Comment on above: Performed By: #### U AMIC ####[facility] Wnlbrcdmdy6[address] [place] [address]Dr. Airam Tripathi Color (U) LT. YELLOW Normal YELLOW [facility] Comment on above: Performed By: #### U AMIC ####[facility] Svghjuknte[address] [place], [place] [address]Dr. Airam Tripathi Crystals LM Nom (Urine sed) NONE SEEN Normal NONE SEEN [facility] Comment on above: Performed By: #### U AMIC ####[facility] Fstvykczlg[address] [place], [place] [address]Dr. Airam Tripathi Epithelial cells LM Ql (Urine sed) RARE Normal NONE SEEN /RARE [facility] Comment on above: Performed By: #### U AMIC ####[facility] Yapijuisnr[address] [place], [place] [address]Dr. Airam Tripathi Glucose Ql (U) Negative Normal NEGATIVE [facility] Comment on above: Performed By: #### U AMIC ####[facility] Elhyikdvuz[address] [place], [place] [address]Dr. Airam Tripathi Hemoglobin Ql (U) Negative Normal NEGATIVE [facility] Comment on above: Performed By: #### U AMIC ####[facility] Kyklyozhvs[address] [place], [place] [address]Dr. Airam Tripathi Ketones Ql (U) Negative Normal NEGATIVE [facility] Comment on above: Performed By: #### U AMIC ####[facility] Otrbfopxil5[address] [place], [place] [address]Dr. Selenalan Tripathi LEUKOCYTES Negative Normal NEGATIVE [facility] Comment on above: Performed By: #### U AMIC ####[facility] Zlwycdzgpo528[address] [place], [place] [address]Dr. Yilan Tripathi MUCOUS NONE SEEN Normal NONE SEEN [facility] Comment on above: Performed By: #### U AMIC ####[facility] Xccbihchmj9383 [place] [address]Dr. Airam Tripathi Nitrite Ql (U) Negative Normal NEGATIVE [facility] Comment on above: Performed By: #### U AMIC ####[facility] Akuwkugfav2352 [place] [address]Dr. Airam Tripathi pH (U) 7.0 [pH] Normal 5-9 [facility] Comment on above: Performed By: #### U AMIC ####[facility] Jrxytituuc1140 [place] [address]Dr. Airam Tripathi RBC 0-2 Normal 0-2 [facility] Comment on above: Performed By: #### U AMIC ####[facility] Tikjhstnsw3650 [place] [address]Dr. Airam Tripathi SPEC GRAVITY 1.015 Normal 1.005-<=1.02 5 [facility] Comment on above: Performed By: #### U AMIC ####[facility] Xqqnipopuf[address] [place], [place] [address]Dr. Airam Tripathi UA PROTEIN Negative Normal NEGATIVE/ TRACE [facility] Comment on above: Performed By: #### U AMIC ####[facility] Urzscbaehg26[address] [place] [address]Dr. Selenaneil Tripathi Urobilinogen Qn (U) 0.2 {Ligia'U}/dL Normal 0.2 - 1. 0 [facility] Comment on above: Performed By: #### U AMIC ####[facility] Uvhyfcbrmq[address] [place], [place] [address]Dr. Selenaneil Tripathi WBC NONE SEEN Normal NONE SEEN [facility] Comment on above: Performed By: #### U AMIC ####[facility] [address]vqpapwfxk[address] [place], [place] [address]Dr. Selenaneil Deuce XR CHEST 1 Von 10-24-2022 XR CHEST 1 V Normal [facility] CBC AUTO DIFFon 10-19-2022 BASO # 0.0 103/ul Normal 0.0-0.1 [facility] Comment on above: Performed By: #### C BC ####[facility] Jkkjgfgxrq27[address] [place] [id number]. Airam Tripathi Basophils/100 WBC (Bld) 0.5 % Normal 0.2-2.0 [facility] Comment on above: Performed By: #### C BC ####[facility] Ffqlbzflkq8805 [place] [address]Dr. Airam Tripathi EO # 0.3 103/ul Normal 0.0-0.7 [facility] Comment on above: Performed By: #### C BC ####[facility] Iouzukgbbs6595 [place] [id number]. Airam Tripathi Eosinophils/100 WBC (Bld) 3.3 % Normal 0.9-7.0 [facility] Comment on above: Performed By: #### C BC ####[facility] Kjibllybcb[address] [place], [place] [address]Dr. Airam Tripathi Erythrocyte distribution width (RBC) [Ratio] 15.0 % Normal 11.0-15.0 [facility] Comment on above: Performed By: #### C BC ####[facility] Zlyplistxv[address] [place], [place] [address]Dr. Airam Tripathi Hematocrit (Bld) [Volume fraction] 32.9 % Critically low 36.0-48.0 [facility] Comment on above: Performed By: #### C BC ####[facility] Wboitohsmh[address] [place], [place] [address]Dr. Airam Tripathi Hemoglobin (Bld) [Mass/Vol] 10.1 g/dL Critically low 12.0-16.0 [facility] Comment on above: Performed By: #### C BC ####[facility] Skxhvrrocq[address] [place], [place] [address]Dr. Airam Tripathi IG # 0.04 10e3/ul Critically high 0.00-0.03 [facility] Comment on above: Performed By: #### C BC ####[facility] Ukdpvptnsa[address] [place], [place] [address]Dr. Airam Tripathi IG % 0.5 % Normal 0.0-0.5 [facility] Comment on above: Performed By: #### C BC ####[facility] Ypmkleizxl3142 [place] [address]Dr. Airam Deuce LYMPH # 1.5 103/ul Normal 1.2-3.8 [facility] Comment on above: Performed By: #### C BC ####[facility] Cdipnqixtr7815 [place] [id number]. Selenaneil Tripathi Lymphocytes/100 WBC (Bld) 18.1 % Critically low 20.5-60.0 [facility] Comment on above: Performed By: #### C BC ####[facility] Fsseguexjs64[address] [place] [address]Dr. Airam Tripathi MANUAL DIFF REQ NO Normal [facility] Comment on above: Performed By: #### C BC ####[facility] Ydxjnhsjgf8822 [place] [address]Dr. Airam Tripathi MCH (RBC) [Entitic mass] 28.3 pg Normal 26.7-34.0 [facility] Comment on above: Performed By: #### C BC ####[facility] Sgwprdajgs9787 [place] [address]Dr. Airam Deuce MCHC (RBC) [Mass/Vol] 30.7 g/dL Normal 29.9-35.2 [facility] Comment on above: Performed By: #### C BC ####[facility] Ujvyptayve[address] [place], [place] [address]Dr. Airam Tripathi MCV (RBC) [Entitic vol] 92.2 fL Normal 81.0-99.0 [facility] Comment on above: Performed By: #### C BC ####[facility] Pexujwgpiw7[address] [place] [id number]. Airam Tripathi MONO # 0.7 103/ul Normal 0.3-0.8 [facility] Comment on above: Performed By: #### C BC ####[facility] Wpukjkeyfh4[address] [place] [address]Dr. Airam Tripathi Monocytes/100 WBC (Bld) 7.7 % Normal 1.7-12.0 [facility] Comment on above: Performed By: #### C BC ####[facility] Vegitduysu0171 [place] [address]Dr. Airam Tripathi NEUT # 5.9 103/ul Normal 1.4-6.5 [facility] Comment on above: Performed By: #### C BC ####[facility] Aofjdjzkxx9580 [place] [address]DrKianna Waltersneil Deuce Neutrophils/100 WBC (Bld) 69.9 % Normal 43.0-75.0 [facility] Comment on above: Performed By: #### C BC ####[facility] Nicnsxkebd3599 [place] [id number]. Airam Tripathi Platelet mean volume (Bld) [Entitic vol] 9.3 fL Critically low 9.5-13.5 [facility] Comment on above: Performed By: #### C BC ####[facility] Oyzqcnumth5728 [place] [address]Dr. Airam Tripathi PLT 293 103/ul Normal 150-450 [facility] Comment on above: Performed By: #### C BC ####[facility] Mpfidpxamu5329 [place] [address]Dr. Airam Tripathi RBC 3.57 106/ul Critically low 4.20-5.40 [facility] Comment on above: Performed By: #### C BC ####[facility] Vtqeydfzil4310 [place] [address]DrKianna Tripathi WBC 8.4 103/ul Normal 4.0-11.0 [facility] Comment on above: Performed By: #### C BC ####[facility] Ewfikmjqxx9713 [place] [id number] Tripathi PROF 14(COMP METB)on 023 Albumin [Mass/Vol] 3.1 g/dL Critically low 3.4-5.0 [facility] Comment on above: Performed By: #### C MP ####[facility] Xrqfazgxvy2332 [place] [id number] Tripathi Albumin/Globulin [Mass ratio] 0.9 {ratio} Normal [facility] Comment on above: Performed By: #### C MP ####[facility] Vdwyvrtqiq6591 [place] [address]Dr. Airam Tripathi ALP [Catalytic activity/Vol] 117 U/L Critically high 46-116 [facility] Comment on above: Performed By: #### C MP ####[facility] Yyqtjupbck9650 [place] [address]Dr. Airam Deuce ALT [Catalytic activity/Vol] 24 U/L Normal 14-59 [facility] Comment on above: Performed By: #### C MP ####[facility] Afiqwkcjcw3617 [place] [address]Dr. Selenaneil Deuce Anion gap [Moles/Vol] 11.1 mmol/L Normal [facility] Comment on above: Performed By: #### C MP ####[facility] Vvanwicyfy[address] [place], [place] [address]Dr. Airam Tripathi AST [Catalytic activity/Vol] 22 U/L Normal 15-37 [facility] Comment on above: Performed By: #### C MP ####[facility] Bhdljmmdeo[address] [place], [place] [address]Dr. Selenaneil Deuce Bilirubin [Mass/Vol] 0.2 mg/dL Normal 0.2-1.0 [facility] Comment on above: Performed By: #### C MP ####[facility] Zrlkiuelul[address] [place], [place] [address]Dr. Airam Tripathi Calcium [Mass/Vol] 8.4 mg/dL Critically low 8.5-10.1 [facility] Comment on above: Performed By: #### C MP ####[facility] Xtmnkmloyx3553 [place] [address]Dr. Airam Tripathi Chloride [Moles/Vol] 103 mmol/L Normal 98-107 [facility] Comment on above: Performed By: #### C MP ####[facility] Niybqdewtu55[address] [place], [place] [address]Dr. Airam Tripathi CO2 [Moles/Vol] 25.0 mmol/L Normal 21.0-32.0 [facility] Comment on above: Performed By: #### C MP ####[facility] Vspzgesdup3269 [place] [address]Dr. Airam Tripathi Creatinine [Mass/Vol] 1.27 mg/dL Critically high 0.55-1.02 [facility] Comment on above: Performed By: #### C MP ####[facility] Wxhyqmerfq5909 [place] [address]Dr. Airam Tripathi EGFR-AF CYPRIOT 52 mL/min/1.73m2 Critically low >=60 [facility] Comment on above: Performed By: #### C MP ####[facility] Dnkupznsgs1439 [place] [address]Dr. Airam Deuce EGFR-NON AF CYPRIOT 43 mL/min/1.73m2 Critically low >=60 [facility] Comment on above: Performed By: #### C MP ####[facility] Aaysevzwcz54[address] [place], [place] [address]Dr. Airam Deuce Globulin (S) [Mass/Vol] 3.3 g/dL Normal [facility] Comment on above: Performed By: #### C MP ####[facility] Hcgrovaxjx396[address] [place], [place] [address]Dr. Airam Deuce Glucose [Mass/Vol] 90 mg/dL Normal 74-106 [facility] Comment on above: Performed By: #### C MP ####[facility] Jonavdsimd4894[address] [place], [place] [address]Dr. Airam Deuce Potassium [Moles/Vol] 5.1 mmol/L Normal 3.5-5.1 [facility] Comment on above: Performed By: #### C MP ####[facility] Yimjhhtdkz23[address] [place], [place] [address]Dr. Airam Tripathi Protein [Mass/Vol] 6.4 g/dL Normal 6.4-8.2 [facility] Comment on above: Performed By: #### C MP ####[facility] Fvrzwhsaia55[address] [place], [place] [address]Dr. Airam Tripathi Sodium [Moles/Vol] 134 mmol/L Critically low 136-145 Th [facility] Comment on above: Performed By: #### C MP ####[facility] Vsyufhrpiz6167 [place] [address]Dr. Airam Tripathi Urea nitrogen [Mass/Vol] 33.0 mg/dL Critically high 7.0-18.0 [facility] Comment on above: Performed By: #### C MP ####[facility] Aacqmfsyjx8[address] [place], [place] [address]Dr. Airam Deuce Urea nitrogen/Creatinine [Mass ratio] 26.0 mg/mg Normal [facility] Comment on above: Performed By: #### C MP ####[facility] Rlzvyazwbe19[address] [place], [place] [address]Dr. Airam Deuce OSMOLALITYon 10-15-2022 Osmolality [Osmolality] 272 mosm/kg Critically low 275-295 [facility] Comment on above: Performed By: #### O SMO ####[facility] Hunsydaqpi27[address] [place], [place] [address]Dr. Airam Tripathi 36on 10-12-2022 36 Can you get the henry ining labs please [facility] 36 [facility] lab called to re port critical BNP of 1,337. FYI Normal [facility] BNPon 10-12-2022 Natriuretic peptide B (Bld) [Mass/Vol] 1337.0 pg/mL Critically high <=900.0 [facility] Comment on above: Performed By: #### B LARGE [employer]INE ASSEMBLER ####[facility] Samqcjxmki67[address] [place], [place] [address]Dr. Airam Deuce CBC AUTO DIFFon 10-12-2022 BASO # 0.0 103/ul Normal 0.0-0.1 [facility] Comment on above: Performed By: #### C BC ####[facility] Hashmvdkgz78[address] [place], [place] [address]Dr. Airam Deuce Basophils/100 WBC (Bld) 0.6 % Normal 0.2-2.0 [facility] Comment on above: Performed By: #### C BC ####[facility] Noldkjiykq[address] [place], [place] [address]DrKianna Tripathi EO # 0.2 103/ul Normal 0.0-0.7 [facility] Comment on above: Performed By: #### C BC ####[facility] Rvmlhxpctg6580 [place] [address]Dr. Airam Tripathi Eosinophils/100 WBC (Bld) 2.3 % Normal 0.9-7.0 [facility] Comment on above: Performed By: #### C BC ####[facility] Nisfjyjhxm0158 [place] [address]Dr. Airam Tripathi Erythrocyte distribution width (RBC) [Ratio] 15.1 % Critically high 11.0-15.0 [facility] Comment on above: Performed By: #### C BC ####[facility] Vnhihaxcuk[address] [place], [place] [address]Dr. Airam Tripathi Hematocrit (Bld) [Volume fraction] 35.9 % Critically low 36.0-48.0 [facility] Comment on above: Performed By: #### C BC ####[facility] Aertcqhozd4[address] [place], [place] [address]Dr. Airam Tripathi Hemoglobin (Bld) [Mass/Vol] 11.4 g/dL Critically low 12.0-16.0 [facility] Comment on above: Performed By: #### C BC ####[facility] Rfafszjyxb74[address] [place], [place] [address]Dr. Airam Tripathi IG # 0.03 10e3/ul Normal 0.00-0.03 [facility] Comment on above: Performed By: #### C BC ####[facility] Hsfvcqrdsv[address] [place], [place] [address]Dr. Airam Tripathi IG % 0.5 % Normal 0.0-0.5 [facility] Comment on above: Performed By: #### C BC ####[facility] Lyjiqettjk33[address] [place], [place] [address]Dr. Airam Tripathi LYMPH # 1.1 103/ul Critically low 1.2-3.8 [facility] Comment on above: Performed By: #### C BC ####[facility] Ropgurvpyv[address] [place], [place] [address]Dr. Airam Tripathi Lymphocytes/100 WBC (Bld) 17.2 % Critically low 20.5-60.0 [facility] Comment on above: Performed By: #### C BC ####[facility] Ggbikkauem2919 [place] [address]DrKianna Tripathi MANUAL DIFF REQ NO Normal [facility] Comment on above: Performed By: #### C BC ####[facility] Ritgnlwicl7491 [place] [address]DrKianna Tripathi MCH (RBC) [Entitic mass] 28.8 pg Normal 26.7-34.0 [facility] Comment on above: Performed By: #### C BC ####[facility] Gvulgjnind[address] [place], [place] [address]DrKianna Tripathi MCHC (RBC) [Mass/Vol] 31.8 g/dL Normal 29.9-35.2 [facility] Comment on above: Performed By: #### C BC ####[facility] Xfocwzphsy[address] [place], [place] [address]DrKianna Tripathi MCV (RBC) [Entitic vol] 90.7 fL Normal 81.0-99.0 [facility] Comment on above: Performed By: #### C BC ####[facility] Wsiqnfunsm4[address] [place], [place] [address]DrKianna Tripathi MONO # 0.5 103/ul Normal 0.3-0.8 [facility] Comment on above: Performed By: #### C BC ####[facility] Bxalhfkunk[address] [place], [place] [address]DrKianna Tripathi Monocytes/100 WBC (Bld) 7.7 % Normal 1.7-12.0 [facility] Comment on above: Performed By: #### C BC ####[facility] Gbhocnjslp[address] [place], [place] [address]DrKianna Tripathi NEUT # 4.7 103/ul Normal 1.4-6.5 [facility] Comment on above: Performed By: #### C BC ####[facility] Jlfavkibbg[address] [place], [place] [address]DrKianna Tripathi Neutrophils/100 WBC (Bld) 71.7 % Normal 43.0-75.0 [facility] Comment on above: Performed By: #### C BC ####[facility] Mbkaemqfwv3338 [place] [address]DrKianna Tripathi Platelet mean volume (Bld) [Entitic vol] 8.2 fL Critically low 9.5-13.5 [facility] Comment on above: Performed By: #### C BC ####[facility] Cvrofyrcir5205 [place] [address]DrKianna Tripathi PLT 292 103/ul Normal 150-450 [facility] Comment on above: Performed By: #### C BC ####[facility] Pagvcresmw9[address] [place], [place] [address]DrKianna Tripathi RBC 3.96 106/ul Critically low 4.20-5.40 [facility] Comment on above: Performed By: #### C BC ####[facility] Tyuvdzazaj3095 [place] [address]DrKianna Tripathi WBC 6.6 103/ul Normal 4.0-11.0 [facility] Comment on above: Performed By: #### C BC ####[facility] Eoyuiqbjbh[address] [place], [place] [address]Dr. Airam Tripathi PROF 14(COMP METB)on 023 Albumin [Mass/Vol] 3.3 g/dL Critically low 3.4-5.0 [facility] Comment on above: Performed By: #### C MP ####[facility] Wqgfdumlum[address] [place], [place] [address]DrKianna Tripathi Albumin/Globulin [Mass ratio] 0.9 {ratio} Normal [facility] Comment on above: Performed By: #### C MP ####[facility] Cdkwntfeso[address] [place], [place] [address]DrKianna Tripathi ALP [Catalytic activity/Vol] 130 U/L Critically high 46-116 [facility] Comment on above: Performed By: #### C MP ####[facility] Hwjbywwyll64[address] [place], [place] [address]DrKianna Tripathi ALT [Catalytic activity/Vol] 23 U/L Normal 14-59 [facility] Comment on above: Performed By: #### C MP ####[facility] Bliafumaln7828 [place] [address]Dr. Airam Deuce Anion gap [Moles/Vol] 11.7 mmol/L Normal Th e [facility] Comment on above: Performed By: #### C MP ####[facility] Lpurhdmgxk5010 [place] [address]Dr. Airam Duece AST [Catalytic activity/Vol] 23 U/L Normal 15-37 [facility] Comment on above: Performed By: #### C MP ####[facility] Udfadjqoyp1944 [place] [address]Dr. Airam Tripathi Bilirubin [Mass/Vol] 0.3 mg/dL Normal 0.2-1.0 [facility] Comment on above: Performed By: #### C MP ####[facility] Vtklsnqanf[address] [place], [place] [address]Dr. Airam Tripathi Calcium [Mass/Vol] 8.7 mg/dL Normal 8.5-10.1 [facility] Comment on above: Performed By: #### C MP ####[facility] Gwqxmgjktn[address] [place], [place] [address]Dr. Airam Tripathi Chloride [Moles/Vol] 99 mmol/L Normal 98-107 [facility] Comment on above: Performed By: #### C MP ####[facility] Zwpdlczlvi[address] [place], [place] [address]Dr. Airam Tripathi CO2 [Moles/Vol] 28.5 mmol/L Normal 21.0-32.0 [facility] Comment on above: Performed By: #### C MP ####[facility] Nzwhzpchgk[address] [place], [place] [address]Dr. Airam Tripathi Creatinine [Mass/Vol] 1.06 mg/dL Critically high 0.55-1.02 [facility] Comment on above: Performed By: #### C MP ####[facility] Pmdftdndxa8562 [place] [id number]. Airam Tripathi EGFR-AF CYPRIOT >60 Normal >=60 [facility] Comment on above: Performed By: #### C MP ####[facility] Sslzdvpxnm0736 [place] [address]Dr. Airam Tripathi EGFR-NON AF CYPRIOT 53 mL/min/1.73m2 Critically low >=60 [facility] Comment on above: Performed By: #### C MP ####[facility] Kncpgzhvak[address] [place] [address]Dr. Airam Tripathi Globulin (S) [Mass/Vol] 3.5 g/dL Normal [facility] Comment on above: Performed By: #### C MP ####[facility] Yrjlxagvzn3518 [place] [id number]. Airam Tripathi Glucose [Mass/Vol] 79 mg/dL Normal 74-106 [facility] Comment on above: Performed By: #### C MP ####[facility] Darvpaotrj4662 [place] [id number]. Airam Tripathi Potassium [Moles/Vol] 4.2 mmol/L Normal 3.5-5.1 [facility] Comment on above: Performed By: #### C MP ####[facility] Sjxqeqozmq5712 [address] [place] [id number]. Airam Tripathi Protein [Mass/Vol] 6.8 g/dL Normal 6.4-8.2 [facility] Comment on above: Performed By: #### C MP ####[facility] Xhmmfktwse9229 [place] [id number]. Airam Tripathi Sodium [Moles/Vol] 135 mmol/L Critically low 136-145 [facility] Comment on above: Performed By: #### C MP ####[facility] Jafmtsjyta9765 [place] [id number]. Airam Tripathi Urea nitrogen [Mass/Vol] 16.0 mg/dL Normal 7.0-18.0 [facility] Comment on above: Performed By: #### C MP ####[facility] Qzqcqgdjuc8215 [place] [id number]. Airam Deuce Urea nitrogen/Creatinine [Mass ratio] 15.1 mg/mg Normal [facility] Comment on above: Performed By: #### C MP ####[facility] Oqykogpsmy7651 [place] [id number]. Airam Tripathi XR CHEST 1 Von 10-12-2022 XR CHEST 1 V Normal [facility] Office Visiton 10-10-2022 Follow-up visit [id number] Loren Moser 1960 F Date Provider Department Center 10/10/2022 ZANDRA NASH CARD [facility] No family history on file Level of Service:38966 SC OFFICE/OUTPATIENT ESTABLISHED MOD MDM 30-39 MIN Reason for Visit and Comments: Congestive Heart Failure [127] Re-establish care [Other] Normal [facility] PRBC LEUKOREDUCEDon 10-10-19 23 PRBC LEUKOREDUCED Normal [facility] Comment on above: Performed By: #### P RBC ####[facility] Nasfjuqmre1153 [place] [address]Dr. Airam Tripathi CULTURE URINEon 10-08-2022 CULTURE URINE Normal [facility] Comment on above: Performed By: #### U RCX ####[facility] Mgnjlclvem4022 [place] [id number]. Airam Tripathi OSMOLALITYon 10-08-2022 Osmolality [Osmolality] 282 mosm/kg Normal 275-295 [facility] Comment on above: Performed By: #### O SMO ####[facility] Oehbqgsndq3414 [place] [id number] Tripathi CBC AUTO DIFFon 10-07-2022 BASO # 0.0 103/ul Normal 0.0-0.1 [facility] Comment on above: Performed By: #### C BC ####[facility] Xvdksbuhzx5971 [place] [id number] Tripathi Basophils/100 WBC (Bld) 0.3 % Normal 0.2-2.0 [facility] Comment on above: Performed By: #### C BC ####[facility] Hrrmmbkeye2148 [place] [id number]. Airam Tripathi EO # 0.2 103/ul Normal 0.0-0.7 [facility] Comment on above: Performed By: #### C BC ####[facility] Jcygjsrbhq0244 [place] [address]Dr. Airam Tripathi Eosinophils/100 WBC (Bld) 3.4 % Normal 0.9-7.0 [facility] Comment on above: Performed By: #### C BC ####[facility] Hemumwjvjm7[address] [place], [place] [address]Dr. Airam Tripathi Erythrocyte distribution width (RBC) [Ratio] 15.2 % Critically high 11.0-15.0 [facility] Comment on above: Performed By: #### C BC ####[facility] Toxtwmgfmi[address] [place], [place] [address]Dr. Airam Tripathi Hematocrit (Bld) [Volume fraction] 31.3 % Critically low 36.0-48.0 [facility] Comment on above: Performed By: #### C BC ####[facility] Dgexulsupo81[address] [place], [place] [address]Dr. Airam Tripathi Hemoglobin (Bld) [Mass/Vol] 9.9 g/dL Critically low 12.0-16.0 [facility] Comment on above: Performed By: #### C BC ####[facility] Ogyzosomto179[address] [place], [place] [address]Dr. Airam Tripathi IG # 0.03 10e3/ul Normal 0.00-0.03 [facility] Comment on above: Performed By: #### C BC ####[facility] Pnjmgvoucl[address] [place], [place] [address]Dr. Airam Tripathi IG % 0.4 % Normal 0.0-0.5 [facility] Comment on above: Performed By: #### C BC ####[facility] Kquboxiihm4544[address] [place], [place] [address]Dr. Airam Tripathi LYMPH # 1.3 103/ul Normal 1.2-3.8 [facility] Comment on above: Performed By: #### C BC ####[facility] Gdlvxwjveh63[address] [place], [place] [address]Dr. Airam Tripathi Lymphocytes/100 WBC (Bld) 19.0 % Critically low 20.5-60.0 [facility] Comment on above: Performed By: #### C BC ####[facility] Olhwrtiwjk1413 [place] [address]Dr. Airam Tripathi MANUAL DIFF REQ NO Normal [facility] Comment on above: Performed By: #### C BC ####[facility] Uudzpdvtws0560 [place] [id number]. Airam Tripathi MCH (RBC) [Entitic mass] 28.1 pg Normal 26.7-34.0 [facility] Comment on above: Performed By: #### C BC ####[facility] Ngehpkzpbn2436 [place] [address]Dr. Airam Tripathi MCHC (RBC) [Mass/Vol] 31.6 g/dL Normal 29.9-35.2 [facility] Comment on above: Performed By: #### C BC ####[facility] Hlwmfvumsy9[address] [place], [place] [address]Dr. Airam Tripathi MCV (RBC) [Entitic vol] 88.9 fL Normal 81.0-99.0 [facility] Comment on above: Performed By: #### C BC ####[facility] Crklubodye209[address] [place], [place] [address]Dr. Airam Tripathi MONO # 0.6 103/ul Normal 0.3-0.8 [facility] Comment on above: Performed By: #### C BC ####[facility] Atflevppig94[address] [place], [place] [address]Dr. Airam Tripathi Monocytes/100 WBC (Bld) 9.0 % Normal 1.7-12.0 [facility] Comment on above: Performed By: #### C BC ####[facility] Yrywqllwws8[address] [place], [place] [address]DrKianna Tripathi NEUT # 4.5 103/ul Normal 1.4-6.5 [facility] Comment on above: Performed By: #### C BC ####[facility] Vypkhbyfsx44[address] [place], [place] [address]DrKianna Tripathi Neutrophils/100 WBC (Bld) 67.9 % Normal 43.0-75.0 [facility] Comment on above: Performed By: #### C BC ####[facility] Rzactdhitq2134 [place] [address]Dr. Airam Tripathi Platelet mean volume (Bld) [Entitic vol] 9.1 fL Critically low 9.5-13.5 [facility] Comment on above: Performed By: #### C BC ####[facility] Hdzxxzypqz4381 [place] [address]DrKianna Tripathi PLT 256 103/ul Normal 150-450 [facility] Comment on above: Performed By: #### C BC ####[facility] Ajcxoxsmfz4084 [place] [address]Dr. Airam Tripathi RBC 3.52 106/ul Critically low 4.20-5.40 [facility] Comment on above: Performed By: #### C BC ####[facility] Kkmgsyjnjx8758 [place] [address]DrKianna Tripathi WBC 6.7 103/ul Normal 4.0-11.0 [facility] Comment on above: Performed By: #### C BC ####[facility] Cuezgfgtwg1271 [place] [address]DrKianna Tripathi PROF 14(COMP METB)on 023 Albumin [Mass/Vol] 2.8 g/dL Critically low 3.4-5.0 [facility] Comment on above: Performed By: #### C MP ####[facility] Acnusedslx6211 [place] [address]DrKianna Tripathi Albumin/Globulin [Mass ratio] 0.9 {ratio} Normal [facility] Comment on above: Performed By: #### C MP ####[facility] Vuhmvpktud6586 [place] [address]DrKianna Tripathi ALP [Catalytic activity/Vol] 118 U/L Critically high 46-116 [facility] Comment on above: Performed By: #### C MP ####[facility] Zbydxtljdx6871 [place] [phone] Tripathi ALT [Catalytic activity/Vol] 23 U/L Normal 14-59 [facility] Comment on above: Performed By: #### C MP ####[facility] Nukxbxwmbk4421 [place] [id number]. Airam Tripathi Anion gap [Moles/Vol] 12.5 mmol/L Normal [facility] Comment on above: Performed By: #### C MP ####[facility] Cytvjlkvgx3299 [place] [address]Dr. Airam Tripathi AST [Catalytic activity/Vol] 21 U/L Normal 15-37 [facility] Comment on above: Performed By: #### C MP ####[facility] Ewxirafefj9976 [place] [address]Dr. Airam Deuce Bilirubin [Mass/Vol] 0.4 mg/dL Normal 0.2-1.0 [facility] Comment on above: Performed By: #### C MP ####[facility] Nvjjeqdtqi0861 [place] [address]Dr. Airam Deuce Calcium [Mass/Vol] 8.2 mg/dL Critically low 8.5-10.1 [facility] Comment on above: Performed By: #### C MP ####[facility] Htjmxzklpo6926 [place] [address]Dr. Airam Deuce Chloride [Moles/Vol] 99 mmol/L Normal 98-107 [facility] Comment on above: Performed By: #### C MP ####[facility] Sepgzlysrv9990 [place] [address]Dr. Airam Tripathi CO2 [Moles/Vol] 24.9 mmol/L Normal 21.0-32.0 [facility] Comment on above: Performed By: #### C MP ####[facility] Unvmjmkqzq0463 [place] [address]Dr. Airam Tripathi Creatinine [Mass/Vol] 1.61 mg/dL Critically high 0.55-1.02 [facility] Comment on above: Performed By: #### C MP ####[facility] Vlmydqmuop1463 [place] [address]Dr. Airam Deuce EGFR-AF CYPRIOT 40 mL/min/1.73m2 Critically low >=60 [facility] Comment on above: Performed By: #### C MP ####[facility] Jxdqdyrjwi7199 [place] [address]Dr. Airam Tripathi EGFR-NON AF CYPRIOT 33 mL/min/1.73m2 Critically low >=60 [facility] Comment on above: Performed By: #### C MP ####[facility] Vnkfwxekfu5930 [place] [address]Dr. Airam Tripathi Globulin (S) [Mass/Vol] 3.2 g/dL Normal [facility] Comment on above: Performed By: #### C MP ####[facility] Ouqtwhrgug6552 [place] [address]Dr. Airam Tripathi Glucose [Mass/Vol] 67 mg/dL Critically low 74-106 [facility] Comment on above: Performed By: #### C MP ####[facility] Bdirzxsjeb37[address] [place], [place] [address]Dr. Airam Deuce Potassium [Moles/Vol] 5.4 mmol/L Critically high 3.5-5.1 [facility] Comment on above: Performed By: #### C MP ####[facility] Pcnrlfxkiy0910[address] [place], [place] [address]Dr. Airam Tripathi Protein [Mass/Vol] 6.0 g/dL Critically low 6.4-8.2 [facility] Comment on above: Performed By: #### C MP ####[facility] Bjplmxqeiw6049 [place] [address]Dr. Airam Tripathi Sodium [Moles/Vol] 131 mmol/L Critically low 136-145 [facility] Comment on above: Performed By: #### C MP ####[facility] Pkqglabenr[address] [place], [place] [address]Dr. Airam Tripathi Urea nitrogen [Mass/Vol] 43.0 mg/dL Critically high 7.0-18.0 [facility] Comment on above: Performed By: #### C MP ####[facility] Mkhjucknip5849 [place] [phone]. Airam Deuce Urea nitrogen/Creatinine [Mass ratio] 26.7 mg/mg Normal [facility] Comment on above: Performed By: #### C MP ####[facility] Wtejbnseyu5239 [place] [address]Dr. Airam Deuce CBC AUTO DIFFon 10-06-2022 BASO # 0.0 103/ul Normal 0.0-0.1 [facility] Comment on above: Performed By: #### C BC ####[facility] Uuoatwpetr0623 [place] [address]Dr. Airam Tripathi Basophils/100 WBC (Bld) 0.3 % Normal 0.2-2.0 [facility] Comment on above: Performed By: #### C BC ####[facility] Oflffjczuq50[address] [place], [place] [address]Dr. Airam Tripathi EO # 0.2 103/ul Normal 0.0-0.7 [facility] Comment on above: Performed By: #### C BC ####[facility] Joiigbjoyd7915[address] [place], [place] [address]Dr. Airam Tripathi Eosinophils/100 WBC (Bld) 3.1 % Normal 0.9-7.0 [facility] Comment on above: Performed By: #### C BC ####[facility] Fbbmrbhgci49[address] [place], [place] [address]Dr. Airam Tripathi Erythrocyte distribution width (RBC) [Ratio] 15.0 % Normal 11.0-15.0 [facility] Comment on above: Performed By: #### C BC ####[facility] Lyrjrrclzf93[address] [place], [place] [address]Dr. Airam Tripathi Hematocrit (Bld) [Volume fraction] 30.9 % Critically low 36.0-48.0 [facility] Comment on above: Performed By: #### C BC ####[facility] Ujiojshxav11[address] [place], [place] [address]Dr. Airam Tripathi Hemoglobin (Bld) [Mass/Vol] 10.1 g/dL Critically low 12.0-16.0 [facility] Comment on above: Result Comment: BIJU ENT RECIEVED 2 UNITS PRBC'S Performed By: #### C BC ####[facility] Ydtvtkunvv3438 [place] [address]Dr. Selenaneil Tripathi IG # 0.03 10e3/ul Normal 0.00-0.03 [facility] Comment on above: Performed By: #### C BC ####[facility] Llzhjijgdp5287 [place] [address]Dr. Airam Deuce IG % 0.4 % Normal 0.0-0.5 [facility] Comment on above: Performed By: #### C BC ####[facility] Ryzgjxdxai6696 [place] [address]Dr. Airam Tripathi LYMPH # 1.1 103/ul Critically low 1.2-3.8 [facility] Comment on above: Performed By: #### C BC ####[facility] Vlbozymixo8911 [place] [address]Dr. Airam Tripathi Lymphocytes/100 WBC (Bld) 14.4 % Critically low 20.5-60.0 [facility] Comment on above: Performed By: #### C BC ####[facility] Xbrghfdzjl4959 [place] [address]Dr. Selenaneil Tripathi MANUAL DIFF REQ NO Normal [facility] Comment on above: Performed By: #### C BC ####[facility] Zvfztcnked8331 [place] [address]Dr. Airam Deuce MCH (RBC) [Entitic mass] 28.9 pg Normal 26.7-34.0 [facility] Comment on above: Performed By: #### C BC ####[facility] Ydtcsjmzah7455 [place] [address]Dr. Airam Deuce MCHC (RBC) [Mass/Vol] 32.7 g/dL Normal 29.9-35.2 [facility] Comment on above: Performed By: #### C BC ####[facility] Cgypslhpnv0937 [place] [address]Dr. Airam Deuce MCV (RBC) [Entitic vol] 88.3 fL Normal 81.0-99.0 [facility] Comment on above: Performed By: #### C BC ####[facility] Rnzkltwiiz7418 [place] [id number]. Airam Tripathi MONO # 0.6 103/ul Normal 0.3-0.8 [facility] Comment on above: Performed By: #### C BC ####[facility] Mgabecuwpr4664 [place] [address]Dr. Airam Tripathi Monocytes/100 WBC (Bld) 7.8 % Normal 1.7-12.0 [facility] Comment on above: Performed By: #### C BC ####[facility] Zgcjbiogbf700[address] [place], [place] [address]Dr. Airam Tripathi NEUT # 5.5 103/ul Normal 1.4-6.5 [facility] Comment on above: Performed By: #### C BC ####[facility] Aptvaceise908[address] [place], [place] [address]Dr. Airam Tripathi Neutrophils/100 WBC (Bld) 74.0 % Normal 43.0-75.0 [facility] Comment on above: Performed By: #### C BC ####[facility] Gzuuamygpo5[address] [place], [place] [address]Dr. Airam Tripathi Platelet mean volume (Bld) [Entitic vol] 9.2 fL Critically low 9.5-13.5 [facility] Comment on above: Performed By: #### C BC ####[facility] Iiitizuewe558[address] [place], [place] [address]Dr. Airam Tripathi PLT 275 103/ul Normal 150-450 [facility] Comment on above: Performed By: #### C BC ####[facility] Jtomquroae1720[address] [place], [place] [address]Dr. Airam Tripathi RBC 3.50 106/ul Critically low 4.20-5.40 [facility] Comment on above: Performed By: #### C BC ####[facility] Owtrrvbrla8[address] [place], [place] [address]Dr. Airam Tripathi WBC 7.4 103/ul Normal 4.0-11.0 [facility] Comment on above: Performed By: #### C BC ####[facility] Pvbmtzsgya[address] [place], [place] [address]Dr. Airam Tripathi BASO # 0.0 103/ul Normal 0.0-0.1 [facility] Comment on above: Performed By: #### C BC ####[facility] Zqbpxambmu8743 [place] [address]Dr. Airam Tripathi Basophils/100 WBC (Bld) 0.4 % Normal 0.2-2.0 [facility] Comment on above: Performed By: #### C BC ####[facility] Sdjbvpuggl99[address] [place], [place] [address]Dr. Airam Tripathi EO # 0.2 103/ul Normal 0.0-0.7 [facility] Comment on above: Performed By: #### C BC ####[facility] Mfdtihyfwl7404[address] [place], [place] [address]Dr. Airam Tripathi Eosinophils/100 WBC (Bld) 4.5 % Normal 0.9-7.0 [facility] Comment on above: Performed By: #### C BC ####[facility] Izzjsegvno268[address] [place], [place] [address]Dr. Airam Tripathi Erythrocyte distribution width (RBC) [Ratio] 15.1 % Critically high 11.0-15.0 [facility] Comment on above: Performed By: #### C BC ####[facility] Ouvyfcgusy0706[address] [place], [place] [address]Dr. Airam Tripathi Hematocrit (Bld) [Volume fraction] 23.0 % Critically low 36.0-48.0 [facility] Comment on above: Performed By: #### C BC ####[facility] Jnnswoybfx7525[address] [place], [place] [address]Dr. Airam Tripathi Hemoglobin (Bld) [Mass/Vol] 7.2 g/dL Critically low 12.0-16.0 [facility] Comment on above: Performed By: #### C BC ####[facility] Kmafichnal5[address] [place], [place] [address]Dr. Airam Tripathi IG # 0.02 10e3/ul Normal 0.00-0.03 [facility] Comment on above: Performed By: #### C BC ####[facility] Ufjnncfnry7137 [place] [address]Dr. Airam Tripathi IG % 0.4 % Normal 0.0-0.5 [facility] Comment on above: Performed By: #### C BC ####[facility] Fzcmnuurje3[address] [place], [place] [address]DrKianna Tripathi LYMPH # 1.0 103/ul Critically low 1.2-3.8 [facility] Comment on above: Performed By: #### C BC ####[facility] Mwagepnqaz104[address] [place], [place] [address]Dr. Airam Tripathi Lymphocytes/100 WBC (Bld) 22.5 % Normal 20.5-60.0 [facility] Comment on above: Performed By: #### C BC ####[facility] Aipkxodyqk764[address] [place], [place] [address]DrKianna Tripathi MANUAL DIFF REQ NO Normal [facility] Comment on above: Performed By: #### C BC ####[facility] Qkmuohiwka40[address] [place], [place] [address]DrKianna Tripathi MCH (RBC) [Entitic mass] 28.3 pg Normal 26.7-34.0 [facility] Comment on above: Performed By: #### C BC ####[facility] Puogwogyya38[address] [place], [place] [address]DrKianna Selenaneil Tripathi MCHC (RBC) [Mass/Vol] 31.3 g/dL Normal 29.9-35.2 [facility] Comment on above: Performed By: #### C BC ####[facility] Yqmtnrdrbu27[address] [place], [place] [address]DrKianna Tripathi MCV (RBC) [Entitic vol] 90.6 fL Normal 81.0-99.0 [facility] Comment on above: Performed By: #### C BC ####[facility] Npinqkiccq85[address] [place], [place] [address]DrKianna Tripathi MONO # 0.5 103/ul Normal 0.3-0.8 [facility] Comment on above: Performed By: #### C BC ####[facility] Mrkivbuzrb74[address] [place], [place] [address]DrKianna Tripathi Monocytes/100 WBC (Bld) 9.7 % Normal 1.7-12.0 [facility] Comment on above: Performed By: #### C BC ####[facility] Nctgmtedmb5579 [place] [address]Dr. Airam Tripathi NEUT # 2.9 103/ul Normal 1.4-6.5 [facility] Comment on above: Performed By: #### C BC ####[facility] Sxadzmrrdq8490 [place] [address]Dr. Airam Tripathi Neutrophils/100 WBC (Bld) 62.5 % Normal 43.0-75.0 [facility] Comment on above: Performed By: #### C BC ####[facility] Wjlipfirqe4057 [place] [address]Dr. Airam Tripathi Platelet mean volume (Bld) [Entitic vol] 8.9 fL Critically low 9.5-13.5 [facility] Comment on above: Performed By: #### C BC ####[facility] Spuvzwyosf4[address] [place], [place] [address]Dr. Airam Tripathi PLT 210 103/ul Normal 150-450 [facility] Comment on above: Performed By: #### C BC ####[facility] Wvizmsefop[address] [place], [place] [address]Dr. Airam Tripathi RBC 2.54 106/ul Critically low 4.20-5.40 [facility] Comment on above: Performed By: #### C BC ####[facility] Gbwmjqetar[address] [place], [place] [address]Dr. Airam Tripathi WBC 4.6 103/ul Normal 4.0-11.0 [facility] Comment on above: Performed By: #### C BC ####[facility] Nxmgnngjiz9812 [place] [address]DrKianna Airam Tripathi OSMOLALITYon 10-06-2022 Osmolality [Osmolality] 279 mosm/kg Normal 275-295 [facility] Comment on above: Performed By: #### O SMO ####[facility] [address]zunjbqdny4[address] [place], [place] [address]Dr. Airam Tripathi POINT OF CARE GLUCOSEon 09-24 Glucose [Mass/Vol] 72 mg/dL Critically low 74-106 [facility] Comment on above: Performed By: #### P OCGLUC ####[facility] Rhswbnfujx1796 [place] [address]Dr. Selenaneil Tripathi Glucose [Mass/Vol] 102 mg/dL Normal 74-106 [facility] Comment on above: Performed By: #### P OCGLUC ####[facility] Xfcnyysndt9120 [place] [address]Dr. Selenaneil Deuce Glucose [Mass/Vol] 165 mg/dL Critically high 74-106 [facility] Comment on above: Performed By: #### P OCGLUC ####[facility] Owcfxhowhv9293 [place] [address]Dr. Airam Tripathi PROF 14(COMP METB)on 023 Albumin [Mass/Vol] 2.6 g/dL Critically low 3.4-5.0 [facility] Comment on above: Performed By: #### C MP ####[facility] Urxzpgkanv9878 [place] [address]Dr. Airam Tripathi Albumin/Globulin [Mass ratio] 0.9 {ratio} Normal [facility] Comment on above: Performed By: #### C MP ####[facility] Euxrhajphj1053 [place] [address]Dr. Airam Tripathi ALP [Catalytic activity/Vol] 107 U/L Normal 46-116 [facility] Comment on above: Performed By: #### C MP ####[facility] Ktqayvducg4936 [place] [address]Dr. Airam Tripathi ALT [Catalytic activity/Vol] 22 U/L Normal 14-59 [facility] Comment on above: Performed By: #### C MP ####[facility] Wnymwfuyjy3447 [place] [address]Dr. Airam Tripathi Anion gap [Moles/Vol] 10.0 mmol/L Normal [facility] Comment on above: Performed By: #### C MP ####[facility] Tvjtxziyzj[address] [place], [place] [address]Dr. Airam Tripathi AST [Catalytic activity/Vol] 19 U/L Normal 15-37 [facility] Comment on above: Performed By: #### C MP ####[facility] Oqobraovpn1927 [place] [address]Dr. Airam Tripathi Bilirubin [Mass/Vol] 0.2 mg/dL Normal 0.2-1.0 [facility] Comment on above: Performed By: #### C MP ####[facility] Irbpgzirin[address] [place], [place] [address]Dr. Airam Tripathi Calcium [Mass/Vol] 8.1 mg/dL Critically low 8.5-10.1 [facility] Comment on above: Performed By: #### C MP ####[facility] Chqrxwtfuk23[address] [place], [place] [address]Dr. Airam Tripathi Chloride [Moles/Vol] 100 mmol/L Normal 98-107 [facility] Comment on above: Performed By: #### C MP ####[facility] Ixveuwyzgq[address] [place], [place] [address]Dr. Airam Tripathi CO2 [Moles/Vol] 26.2 mmol/L Normal 21.0-32.0 [facility] Comment on above: Performed By: #### C MP ####[facility] Frsittukjo[address] [place], [place] [address]Dr. Airam Tripathi Creatinine [Mass/Vol] 1.90 mg/dL Critically high 0.55-1.02 [facility] Comment on above: Performed By: #### C MP ####[facility] Dypqqdjxhc[address] [place], [place] [address]Dr. Airam Tripathi EGFR-AF CYPRIOT 33 mL/min/1.73m2 Critically low >=60 [facility] Comment on above: Performed By: #### C MP ####[facility] Vswxebxkdf[address] [place], [place] [address]Dr. Airam Tripathi EGFR-NON AF CYPRIOT 27 mL/min/1.73m2 Critically low >=60 [facility] Comment on above: Performed By: #### C MP ####[facility] Dioowinpkj[address] [place], [place] [address]Dr. Airam Tripathi Globulin (S) [Mass/Vol] 2.8 g/dL Normal [facility] Comment on above: Performed By: #### C MP ####[facility] Xtcoxttnus[address] [place] [address]Dr. Airam Tripathi Glucose [Mass/Vol] 115 mg/dL Critically high 74-106 [facility] Comment on above: Performed By: #### C MP ####[facility] Oddqeohwjw7086 [place] [address]Dr. Airam Tripathi Potassium [Moles/Vol] 5.2 mmol/L Critically high 3.5-5.1 [facility] Comment on above: Performed By: #### C MP ####[facility] Jjlttxsypy0353 [place] [address]Dr. Airam Tripathi Protein [Mass/Vol] 5.4 g/dL Critically low 6.4-8.2 Th [facility] Comment on above: Performed By: #### C MP ####[facility] Iovclcucbk4[address] [place], [place] [address]Dr. Airam Tripathi Sodium [Moles/Vol] 131 mmol/L Critically low 136-145 [facility] Comment on above: Performed By: #### C MP ####[facility] Wcwfpvclwt7223 [place] [address]Dr. Airam Tripathi Urea nitrogen [Mass/Vol] 41.0 mg/dL Critically high 7.0-18.0 [facility] Comment on above: Performed By: #### C MP ####[facility] Ecfujqxavc08[address] [place] [address]Dr. Airam Tripathi Urea nitrogen/Creatinine [Mass ratio] 21.6 mg/mg Normal [facility] Comment on above: Performed By: #### C MP ####[facility] Kvupcuafjf6470 [place] [address]Dr. Airam Deuce TYPE AND SCREENon 10-06-2022 TYPE AND SCREEN Negative Normal [facility] Comment on above: Performed By: #### T NS ####[facility] Nogvmowfwq5[address] [place], [place] [address]Dr. Airam Tripathi CBC AUTO DIFFon 10-05-2022 BASO # 0.0 103/ul Normal 0.0-0.1 [facility] Comment on above: Performed By: #### C BC ####[facility] Fowihuitpf6203 [place] [address]Dr. Airam Tripathi Basophils/100 WBC (Bld) 0.5 % Normal 0.2-2.0 [facility] Comment on above: Performed By: #### C BC ####[facility] Fjjoymivvo4198 [place] [address]Dr. Airam Tripathi EO # 0.2 103/ul Normal 0.0-0.7 [facility] Comment on above: Performed By: #### C BC ####[facility] Shtffyyygc2560 [place] [address]Dr. Airam Deuce Eosinophils/100 WBC (Bld) 3.2 % Normal 0.9-7.0 [facility] Comment on above: Performed By: #### C BC ####[facility] Qaguroxooo[address] [place], [place] [address]Dr. Airam Tripathi Erythrocyte distribution width (RBC) [Ratio] 15.2 % Critically high 11.0-15.0 [facility] Comment on above: Performed By: #### C BC ####[facility] Klgkaezjsh6330 [place] [address]Dr. Airam Tripathi Hematocrit (Bld) [Volume fraction] 24.7 % Critically low 36.0-48.0 [facility] Comment on above: Performed By: #### C BC ####[facility] Zuquncsyka[address] [place], [place] [address]Dr. Airam Tripathi Hemoglobin (Bld) [Mass/Vol] 7.6 g/dL Critically low 12.0-16.0 [facility] Comment on above: Performed By: #### C BC ####[facility] Vzcznqtowg2424 [place] [address]Dr. Airam Deuce IG # 0.02 10e3/ul Normal 0.00-0.03 [facility] Comment on above: Performed By: #### C BC ####[facility] Rpyfbrrkjo2037 [place] [id number]. Ariam Tripathi IG % 0.3 % Normal 0.0-0.5 [facility] Comment on above: Performed By: #### C BC ####[facility] Pgghsqfopb6736 [place] [id number]. Airam Tripathi LYMPH # 1.1 103/ul Critically low 1.2-3.8 [facility] Comment on above: Performed By: #### C BC ####[facility] Tbyzubbrjp9991 [place] [id number]. Airam Tripathi Lymphocytes/100 WBC (Bld) 18.4 % Critically low 20.5-60.0 [facility] Comment on above: Performed By: #### C BC ####[facility] Xbvlvwlwkm1393 [place] [phone]. Airam Tripathi MANUAL DIFF REQ NO Normal [facility] Comment on above: Performed By: #### C BC ####[facility] Klydrsrdjc1472 [place] [id number]. Airam Tripathi MCH (RBC) [Entitic mass] 28.5 pg Normal 26.7-34.0 [facility] Comment on above: Performed By: #### C BC ####[facility] Kvqmsmlvds9078 [place] [id number]. Airam Tripathi MCHC (RBC) [Mass/Vol] 30.8 g/dL Normal 29.9-35.2 [facility] Comment on above: Performed By: #### C BC ####[facility] Skjtxvmule1859 [place] [id number]. Airam Tripathi MCV (RBC) [Entitic vol] 92.5 fL Normal 81.0-99.0 [facility] Comment on above: Performed By: #### C BC ####[facility] Voqfwsfzsm8103 [place] [id number]. Airam Tripathi MONO # 0.6 103/ul Normal 0.3-0.8 [facility] Comment on above: Performed By: #### C BC ####[facility] Afrkggnssp1951 [place] [id number]. Ariam Tripathi Monocytes/100 WBC (Bld) 10.0 % Normal 1.7-12.0 [facility] Comment on above: Performed By: #### C BC ####[facility] Ycznspbdsx8993 [place] [address]Dr. Airam Tripathi NEUT # 4.0 103/ul Normal 1.4-6.5 [facility] Comment on above: Performed By: #### C BC ####[facility] Gxgnacmkpi4888 [place] [id number]. Airam Tripathi Neutrophils/100 WBC (Bld) 67.6 % Normal 43.0-75.0 [facility] Comment on above: Performed By: #### C BC ####[facility] Lkrtjlkhfv4197 [place] [phone]. Airam Tripathi Platelet mean volume (Bld) [Entitic vol] 8.8 fL Critically low 9.5-13.5 [facility] Comment on above: Performed By: #### C BC ####[facility] Ospjpaicuf6935 [place] [phone]. Airam Tripathi PLT 226 103/ul Normal 150-450 [facility] Comment on above: Performed By: #### C BC ####[facility] Vuofirigog9159 [place] [address]Dr. Airam Tripathi RBC 2.67 106/ul Critically low 4.20-5.40 [facility] Comment on above: Performed By: #### C BC ####[facility] Ryonselxhx5056 [place] [phone]. Airam Tripathi WBC 5.9 103/ul Normal 4.0-11.0 [facility] Comment on above: Performed By: #### C BC ####[facility] Johgojbinl[address] [place], [place] [address]Dr. Airam Tripathi Covid-19 PCR (CVDTB)on 09-24 SARS-CoV-2 (COVID-19) RNA MIKE+probe Ql (Unsp spec) Not detected Normal NOT DETECTED [facility] Comment on above: Result Comment: When [...] for this test is supported by the [place] of [employer] and Human Service's declaration that [...] be used). Performed By: #### C VDTBH ####[facility] Vxnhabdkkj[address] [place], [place] [address]DrKianna Tripathi MAGNESIUMon 10-05-2022 Magnesium [Mass/Vol] 1.7 mg/dL Critically low 1.8-2.4 [facility] Comment on above: Performed By: #### M G, CMP ####[facility] Ueuyqicacj67[address] [place], [place] [address]DrKianna Tripathi POINT OF CARE GLUCOSEon 09-24 Glucose [Mass/Vol] 92 mg/dL Normal 74-106 [facility] Comment on above: Performed By: #### P OCGLUC ####[facility] Zfepvnkppn23[address] [place], [place] [address]DrKianna Tripathi PROF 14(COMP METB)on 023 Albumin [Mass/Vol] 2.9 g/dL Critically low 3.4-5.0 Th e [facility] Comment on above: Performed By: #### M G, CMP ####[facility] Lwzmrthlfr[address] [place], [place] [address]DrKianna Tripathi Albumin/Globulin [Mass ratio] 0.9 {ratio} Normal [facility] Comment on above: Performed By: #### M Yumiko, CMP ####[facility] Xzqlrtfmds6677 [place] [phone]. Airam Tripathi ALP [Catalytic activity/Vol] 122 U/L Critically high 46-116 [facility] Comment on above: Performed By: #### Nadya Calderon, CMP ####[facility] Loozftfwpo7783 [place] [phone]. Airam Tripathi ALT [Catalytic activity/Vol] 24 U/L Normal 14-59 [facility] Comment on above: Performed By: #### Nadya Calderon, CMP ####[facility] Msalbhzrlu[address] [place], [place] [address]Dr. Airam Tripathi Anion gap [Moles/Vol] 13.1 mmol/L Normal [facility] Comment on above: Performed By: #### Nadya Calderon, CMP ####[facility] Ljksojupii8[address] [place], [place] [address]Dr. Airam Tripathi AST [Catalytic activity/Vol] 21 U/L Normal 15-37 [facility] Comment on above: Performed By: #### Nadya Calderon, CMP ####[facility] Zwvqlhdyju606[address] [place], [place] [address]Dr. Airam Tripathi Bilirubin [Mass/Vol] 0.2 mg/dL Normal 0.2-1.0 [facility] Comment on above: Performed By: #### Nadya Calderon, CMP ####[facility] Ylgrazuqho[address] [place], [place] [address]Dr. Airam Tripathi Calcium [Mass/Vol] 8.4 mg/dL Critically low 8.5-10.1 [facility] Comment on above: Performed By: #### Nadya Calderon, CMP ####[facility] Yezwwnwrjn5852 [place] [phone]. Selenaneil Tripathi Chloride [Moles/Vol] 102 mmol/L Normal 98-107 [facility] Comment on above: Performed By: #### Nadya Calderon, CMP ####[facility] Leoqreccir547[address] [place], [place] [address]Dr. Airam Tripathi CO2 [Moles/Vol] 23.2 mmol/L Normal 21.0-32.0 [facility] Comment on above: Performed By: #### Nadya Calderon, CMP ####[facility] Nyegkzpkyd5478 [place] [phone]. Airam Deuce Creatinine [Mass/Vol] 1.96 mg/dL Critically high 0.55-1.02 [facility] Comment on above: Performed By: #### M G, CMP ####[facility] Qtpagtppwk2110 [place] [address]Dr. Airam Tripathi EGFR-AF CYPRIOT 32 mL/min/1.73m2 Critically low >=60 [facility] Comment on above: Performed By: #### M G, CMP ####[facility] Qgcfsxagbl4903 [place] [phone]. Airam Tripathi EGFR-NON AF CYPRIOT 26 mL/min/1.73m2 Critically low >=60 [facility] Comment on above: Performed By: #### M G, CMP ####[facility] Gqgdsitvwk94[address] [place], [place] [address]Dr. Airam Tripathi Globulin (S) [Mass/Vol] 3.2 g/dL Normal [facility] Comment on above: Performed By: #### M G, CMP ####[facility] Ojpfpbavds[address] [place], [place] [address]Dr. Airam Tripathi Glucose [Mass/Vol] 68 mg/dL Critically low 74-106 Th [facility] Comment on above: Performed By: #### M G, CMP ####[facility] Eggwsvnbxd9216[address] [place], [place] [address]Dr. Airam Tripathi Potassium [Moles/Vol] 5.3 mmol/L Critically high 3.5-5.1 [facility] Comment on above: Performed By: #### M G, CMP ####[facility] Pnslhtlbbf[address] [place], [place] [address]Dr. Airam Tripathi Protein [Mass/Vol] 6.1 g/dL Critically low 6.4-8.2 Th [facility] Comment on above: Performed By: #### M G, CMP ####[facility] Wafcorfeud[address] [place], [place] [address]Dr. Airam Tripathi Sodium [Moles/Vol] 133 mmol/L Critically low 136-145 Th [facility] Comment on above: Performed By: #### M G, CMP ####[facility] Wgqaqbspbu25[address] [place], [place] [address]Dr. Airam Tripathi Urea nitrogen [Mass/Vol] 39.0 mg/dL Critically high 7.0-18.0 [facility] Comment on above: Performed By: #### M G, CMP ####[facility] Kfvzfudzzb[address] [place], [place] [address]Dr. Airam Tripathi Urea nitrogen/Creatinine [Mass ratio] 19.9 mg/mg Normal [facility] Comment on above: Performed By: #### M G, CMP ####[facility] Bsrflpqwxk[address] [place], [place] [address]Dr. Airam Tripathi SODIUM RANDOM URINEon 2022 Sodium (U) [Moles/Vol] 37 mmol/L Normal 30-90 [facility] Comment on above: Performed By: #### N AU ####[facility] Pudgcjbwht06[address] [place], [place] [address]Dr. Airam Tripathi UA RANDOM W/MICROSCOPICon BACTERIA TRACE Abnormal NONE SEEN [facility] Comment on above: Performed By: #### U AMIC ####[facility] Sbwjzcsdgx[address] [place], [place] [address]Dr. Airam Tripathi Bilirubin Ql (U) Negative Normal NEGATIVE [facility] Comment on above: Performed By: #### U AMIC ####[facility] Kkhwhjlgtv3546 [place] [address]Dr. Airam Tripathi CAST SEEN Abnormal NONE SEEN [facility] Comment on above: Performed By: #### U AMIC ####[facility] Thrfwocyzd35[address] [place], [place] [address]Dr. Airam Tripathi Clarity (U) CLEAR Normal CLEAR [facility] Comment on above: Performed By: #### U AMIC ####[facility] Oglsbrghit4150 [place] [address]Dr. Airam Tripathi Color (U) YELLOW Normal YELLOW [facility] Comment on above: Performed By: #### U AMIC ####[facility] Rlrythmnpj6989 [place] [phone]. Airam Tripathi Crystals LM Nom (Urine sed) NONE SEEN Normal NONE SEEN [facility] Comment on above: Performed By: #### U AMIC ####[facility] Vmjsriqwzj2317 [place] [address]Dr. Airam Tripathi Epithelial cells LM Ql (Urine sed) RARE Normal NONE SEEN /RARE [facility] Comment on above: Performed By: #### U AMIC ####[facility] Brzvlxgpyl7[address] [place], [place] [address]Dr. Airam Tripathi Glucose Ql (U) Negative Normal NEGATIVE [facility] Comment on above: Performed By: #### U AMIC ####[facility] Klyemkbbfj85[address] [place], [place] [address]Dr. Airam Tripathi Hemoglobin Ql (U) Negative Normal NEGATIVE [facility] Comment on above: Performed By: #### U AMIC ####[facility] Uvxhkhiwdc[address] [place], [place] [address]Dr. Airam Tripathi HYALINE CAST RARE Normal [facility] Comment on above: Performed By: #### U AMIC ####[facility] Hsnzvpfduk[address] [place], [place] [address]Dr. Airam Tripathi Ketones Ql (U) TRACE Abnormal NEGATIVE [facility] Comment on above: Performed By: #### U AMIC ####[facility] Hlspfmzdbt1774 [place] [address]Dr. Airam Tripathi LEUKOCYTES Negative Normal NEGATIVE [facility] Comment on above: Performed By: #### U AMIC ####[facility] Tufqgslyec66[address] [place], [place] [address]Dr. Airam Tripathi MUCOUS NONE SEEN Normal NONE SEEN [facility] Comment on above: Performed By: #### U AMIC ####[facility] Toanbcgdha29[address] [place], [place] [address]Dr. Airam Tripathi Nitrite Ql (U) Negative Normal NEGATIVE [facility] Comment on above: Performed By: #### U AMIC ####[facility] Lnarbrerho033[address] [place], [place] [address]Dr. Airam Tripathi pH (U) 5.0 [pH] Normal 5-9 [facility] Comment on above: Performed By: #### U AMIC ####[facility] Rgbyrxgopz2834 [place] [address]Dr. Airam Tripathi RBC 0-2 Normal 0-2 [facility] Comment on above: Performed By: #### U AMIC ####[facility] Gibelfbpiu0529 [place] [address]Dr. Airam Tripathi SPEC GRAVITY 1.015 Normal 1.005-<=1.02 5 [facility] Comment on above: Performed By: #### U AMIC ####[facility] Vjktqslsgj8211 [place] [address]Dr. Airam Tripathi UA PROTEIN Negative Normal NEGATIVE/ TRACE [facility] Comment on above: Performed By: #### U AMIC ####[facility] Bplfmsnmvd1199 [place] [address]Dr. Airam Tripathi Urobilinogen Qn (U) 0.2 {Ligia'U}/dL Normal 0.2 - 1. 0 [facility] Comment on above: Performed By: #### U AMIC ####[facility] Ziltnpkywo[address] [place], [place] [address]Dr. Airam Tripathi WBC NONE SEEN Normal NONE SEEN [facility] Comment on above: Performed By: #### U AMIC ####[facility] Aoyeblmjco3113 [place] [address]Dr. Airam Tripathi CBC AUTO DIFFon 10-04-2022 BASO # 0.0 103/ul Normal 0.0-0.1 [facility] Comment on above: Performed By: #### C BC ####[facility] Oegcwwzhkc3387 [place] [address]Dr. Airam Tripathi Basophils/100 WBC (Bld) 0.3 % Normal 0.2-2.0 [facility] Comment on above: Performed By: #### C BC ####[facility] Nazdiosqgv8499 [place] [address]Dr. Airam Tripathi EO # 0.2 103/ul Normal 0.0-0.7 [facility] Comment on above: Performed By: #### C BC ####[facility] Zonqncetob1646 [place] [address]Dr. Airam Tripathi Eosinophils/100 WBC (Bld) 3.2 % Normal 0.9-7.0 [facility] Comment on above: Performed By: #### C BC ####[facility] Uoraxavdww1711 [place] [address]Dr. Airam Tripathi Erythrocyte distribution width (RBC) [Ratio] 15.1 % Critically high 11.0-15.0 [facility] Comment on above: Performed By: #### C BC ####[facility] Aofktwxubl14[address] [place], [place] [address]Dr. Airam Tripathi Hematocrit (Bld) [Volume fraction] 27.6 % Critically low 36.0-48.0 [facility] Comment on above: Performed By: #### C BC ####[facility] Efrscboubr20[address] [place], [place] [address]Dr. Airam Tripathi Hemoglobin (Bld) [Mass/Vol] 8.7 g/dL Critically low 12.0-16.0 [facility] Comment on above: Performed By: #### C BC ####[facility] Dydzrenmmc[address] [place], [place] [address]Dr. Airam Tripathi IG # 0.03 10e3/ul Normal 0.00-0.03 [facility] Comment on above: Performed By: #### C BC ####[facility] Aehmyzabrq47[address] [place], [place] [address]Dr. Airam Tripathi IG % 0.4 % Normal 0.0-0.5 [facility] Comment on above: Performed By: #### C BC ####[facility] Heqoyzwjok12[address] [place], [place] [address]Dr. Airam Tripathi LYMPH # 1.2 103/ul Normal 1.2-3.8 [facility] Comment on above: Performed By: #### C BC ####[facility] Hshumeznqc96[address] [place], [place] [address]Dr. Airam Tripathi Lymphocytes/100 WBC (Bld) 16.4 % Critically low 20.5-60.0 [facility] Comment on above: Performed By: #### C BC ####[facility] Ultolttzfp7974 [place] [address]DrKianna Tripathi MANUAL DIFF REQ NO Normal [facility] Comment on above: Performed By: #### C BC ####[facility] Wsptqxnxtk7115 [place] [address]Dr. Airam Tripathi MCH (RBC) [Entitic mass] 28.5 pg Normal 26.7-34.0 [facility] Comment on above: Performed By: #### C BC ####[facility] Acttpxjvar64[address] [place], [place] [address]Dr. Airam Tripathi MCHC (RBC) [Mass/Vol] 31.5 g/dL Normal 29.9-35.2 [facility] Comment on above: Performed By: #### C BC ####[facility] Yhmojscegh06[address] [place], [place] [address]Dr. Airam Tripathi MCV (RBC) [Entitic vol] 90.5 fL Normal 81.0-99.0 [facility] Comment on above: Performed By: #### C BC ####[facility] Jovrzjbqvu5[address] [place], [place] [address]Dr. Airam Tripathi MONO # 0.5 103/ul Normal 0.3-0.8 [facility] Comment on above: Performed By: #### C BC ####[facility] K[address]vylifbvx[address] [place], [place] [address]Dr. Airam Tripathi Monocytes/100 WBC (Bld) 7.3 % Normal 1.7-12.0 [facility] Comment on above: Performed By: #### C BC ####[facility] Fegbqrrojt[address] [place], [place] [address]DrKianna Tripathi NEUT # 5.4 103/ul Normal 1.4-6.5 [facility] Comment on above: Performed By: #### C BC ####[facility] Emwlcfnntg[address] [place], [place] [address]DrKianna Tripathi Neutrophils/100 WBC (Bld) 72.4 % Normal 43.0-75.0 [facility] Comment on above: Performed By: #### C BC ####[facility] Fijfyxiazt1518 [place] [address]DrKianna Tripathi Platelet mean volume (Bld) [Entitic vol] 9.1 fL Critically low 9.5-13.5 [facility] Comment on above: Performed By: #### C BC ####[facility] Ymwfuvoljk5525 [place] [address]DrKianna Tripathi PLT 304 103/ul Normal 150-450 [facility] Comment on above: Performed By: #### C BC ####[facility] Sjuqyvbpmq8137 [place] [address]Dr. Airam Tripathi RBC 3.05 106/ul Critically low 4.20-5.40 [facility] Comment on above: Performed By: #### C BC ####[facility] Xpqfrvwhrh1104 [place] [address]DrKianna Tripathi WBC 7.4 103/ul Normal 4.0-11.0 [facility] Comment on above: Performed By: #### C BC ####[facility] Vjhyukgomw8355 [place] [id number] Tripathi PROF 14(COMP METB)on 023 Albumin [Mass/Vol] 3.3 g/dL Critically low 3.4-5.0 [facility] Comment on above: Performed By: #### C MP ####[facility] Cpnzdguxoa7858 [place] [address]DrKianna Tripathi Albumin/Globulin [Mass ratio] 0.9 {ratio} Normal [facility] Comment on above: Performed By: #### C MP ####[facility] Amdcibcgtn3817 [place] [id number] Tripathi ALP [Catalytic activity/Vol] 127 U/L Critically high 46-116 [facility] Comment on above: Performed By: #### C MP ####[facility] Atazhqntmb7149 [place] [id number] Tripathi ALT [Catalytic activity/Vol] 29 U/L Normal 14-59 [facility] Comment on above: Performed By: #### C MP ####[facility] Wleuprpcet6647 [place] [id number]. Airam Tripathi Anion gap [Moles/Vol] 14.6 mmol/L Normal Th e [facility] Comment on above: Performed By: #### C MP ####[facility] Hxmgasedys4091 [place] [id number]. Airam Tripathi AST [Catalytic activity/Vol] 28 U/L Normal 15-37 [facility] Comment on above: Performed By: #### C MP ####[facility] [address]fobkpxi[address] [place] [id number]. Airam Deuce Bilirubin [Mass/Vol] 0.3 mg/dL Normal 0.2-1.0 [facility] Comment on above: Performed By: #### C MP ####[facility] Nlnvnlnewq7678 [place] [id number]. Airam Deuce Calcium [Mass/Vol] 8.9 mg/dL Normal 8.5-10.1 [facility] Comment on above: Performed By: #### C MP ####[facility] Ejxxybgvvv5806 [place] [id number]. Airam Deuce Chloride [Moles/Vol] 99 mmol/L Normal 98-107 [facility] Comment on above: Performed By: #### C MP ####[facility] Tukhhicphb3652 [place] [id number]. Airam Deuce CO2 [Moles/Vol] 25.1 mmol/L Normal 21.0-32.0 [facility] Comment on above: Performed By: #### C MP ####[facility] Djcryopxyu5822 [place] [id number]. Airam Deuce Creatinine [Mass/Vol] 1.42 mg/dL Critically high 0.55-1.02 [facility] Comment on above: Performed By: #### C MP ####[facility] Pgmxzybpxo8925 [place] [id number]. Airam Deuce EGFR-AF CYPRIOT 46 mL/min/1.73m2 Critically low >=60 [facility] Comment on above: Performed By: #### C MP ####[facility] Xdljwmrksu3141 [place] [id number]. Airam Tripathi EGFR-NON AF CYPRIOT 38 mL/min/1.73m2 Critically low >=60 [facility] Comment on above: Performed By: #### C MP ####[facility] Oeaiegedce7949 [place] [id number]. Airam Tripathi Globulin (S) [Mass/Vol] 3.6 g/dL Normal [facility] Comment on above: Performed By: #### C MP ####[facility] Bxgflzwtik9424 [place] [id number]. Airam Tripathi Glucose [Mass/Vol] 79 mg/dL Normal 74-106 [facility] Comment on above: Performed By: #### C MP ####[facility] Djolztwivb9803 [place] [phone]. Airam Tripathi Potassium [Moles/Vol] 5.7 mmol/L Critically high 3.5-5.1 [facility] Comment on above: Performed By: #### C MP ####[facility] Qbtwnjdwly1478 [place] [id number]. Airam Tripathi Protein [Mass/Vol] 6.9 g/dL Normal 6.4-8.2 [facility] Comment on above: Performed By: #### C MP ####[facility] Rhhikdmcwg4195 [place] [phone]. Airam Tripathi Sodium [Moles/Vol] 133 mmol/L Critically low 136-145 [facility] Comment on above: Performed By: #### C MP ####[facility] Agcxpsyiki6789 [place] [phone]. Airam Tripathi Urea nitrogen [Mass/Vol] 35.0 mg/dL Critically high 7.0-18.0 [facility] Comment on above: Performed By: #### C MP ####[facility] Nmqcnkplox0399 [place] [id number]. Airam Deuce Urea nitrogen/Creatinine [Mass ratio] 24.6 mg/mg Normal [facility] Comment on above: Performed By: #### C MP ####[facility] Jimuxbsixe[address] [place], [place] [address]Dr. Airam Tripathi OSMOLALITYon 10-02-2022 Osmolality [Osmolality] 277 mosm/kg Normal 275-295 [facility] Comment on above: Performed By: #### O SMO ####[facility] Qcjgwzwmeq[address] [place], [place] [address]Dr. Airam Tripathi CBC AUTO DIFFon 09-29-2022 BASO # 0.0 103/ul Normal 0.0-0.1 [facility] Comment on above: Performed By: #### C BC ####[facility] Fzvloqhhex[address] [place], [place] [address]Dr. Airam Tripathi Basophils/100 WBC (Bld) 0.5 % Normal 0.2-2.0 [facility] Comment on above: Performed By: #### C BC ####[facility] Xaevmknetk148[address] [place], [place] [address]Dr. Airam Tripathi EO # 0.2 103/ul Normal 0.0-0.7 [facility] Comment on above: Performed By: #### C BC ####[facility] Vulpufkjwl[address] [place], [place] [address]Dr. Airam Tripathi Eosinophils/100 WBC (Bld) 3.2 % Normal 0.9-7.0 [facility] Comment on above: Performed By: #### C BC ####[facility] Mxlspxkpvo118[address] [place], [place] [address]Dr. Airam Tripathi Erythrocyte distribution width (RBC) [Ratio] 15.1 % Critically high 11.0-15.0 [facility] Comment on above: Performed By: #### C BC ####[facility] Raonvoxaap[address] [place], [place] [address]DrKianna Tripathi Hematocrit (Bld) [Volume fraction] 26.2 % Critically low 36.0-48.0 [facility] Comment on above: Performed By: #### C BC ####[facility] Nuurnjymen66[address] [place], [place] [address]Dr. Airam Tripathi Hemoglobin (Bld) [Mass/Vol] 8.1 g/dL Critically low 12.0-16.0 [facility] Comment on above: Performed By: #### C BC ####[facility] Fpoahilhci29[address] [place] [address]DrKianna Tripathi IG # 0.02 10e3/ul Normal 0.00-0.03 [facility] Comment on above: Performed By: #### C BC ####[facility] Zmspbxktze9953 [place] [address]DrKianna Tripathi IG % 0.4 % Normal 0.0-0.5 [facility] Comment on above: Performed By: #### C BC ####[facility] Sjllghsppc[address] [place], [place] [address]DrKianna Tripathi LYMPH # 1.3 103/ul Normal 1.2-3.8 [facility] Comment on above: Performed By: #### C BC ####[facility] Xfyyipgllz[address] [place], [place] [address]DrKianna Tripathi Lymphocytes/100 WBC (Bld) 22.6 % Normal 20.5-60.0 [facility] Comment on above: Performed By: #### C BC ####[facility] Pkbkpdmrbd[address] [place], [place] [address]DrKianna Tripathi MANUAL DIFF REQ NO Normal [facility] Comment on above: Performed By: #### C BC ####[facility] Lqgbloibnk27[address] [place], [place] [address]DrKianna Tripathi MCH (RBC) [Entitic mass] 28.0 pg Normal 26.7-34.0 [facility] Comment on above: Performed By: #### C BC ####[facility] Suoswdtmmg[address] [place], [place] [address]DrKianna Tripathi MCHC (RBC) [Mass/Vol] 30.9 g/dL Normal 29.9-35.2 [facility] Comment on above: Performed By: #### C BC ####[facility] Crlmaqioxt[address] [place], [place] [address]DrKianna Tripathi MCV (RBC) [Entitic vol] 90.7 fL Normal 81.0-99.0 [facility] Comment on above: Performed By: #### C BC ####[facility] Wcmrphcxpe6984 [place] [address]DrKianna Airam Deuce MONO # 0.5 103/ul Normal 0.3-0.8 [facility] Comment on above: Performed By: #### C BC ####[facility] Gttamiqmsj1734 [place] [address]Dr. Airam Tripathi Monocytes/100 WBC (Bld) 9.6 % Normal 1.7-12.0 [facility] Comment on above: Performed By: #### C BC ####[facility] Npjxfqsejy0604 [place] [address]Dr. Selenaneil Tripathi NEUT # 3.6 103/ul Normal 1.4-6.5 [facility] Comment on above: Performed By: #### C BC ####[facility] Dsfirpmmes2671 [place] [address]Dr. Airam Tripathi Neutrophils/100 WBC (Bld) 63.7 % Normal 43.0-75.0 [facility] Comment on above: Performed By: #### C BC ####[facility] Qkbfcijlgb63[address] [place], [place] [address]Dr. Selenaneil Tripathi Platelet mean volume (Bld) [Entitic vol] 9.4 fL Critically low 9.5-13.5 [facility] Comment on above: Performed By: #### C BC ####[facility] Jafvoztzru[address] [place], [place] [address]Dr. Airam Tripathi PLT 258 103/ul Normal 150-450 [facility] Comment on above: Performed By: #### C BC ####[facility] Ybabctneud[address] [place], [place] [address]Dr. Airam Tripathi RBC 2.89 106/ul Critically low 4.20-5.40 [facility] Comment on above: Performed By: #### C BC ####[facility] Xgbdmfyjpb8501 [place] [id number]. Airam Tripathi WBC 5.6 103/ul Normal 4.0-11.0 [facility] Comment on above: Performed By: #### C BC ####[facility] Eveztaqszx5032 [place] [address]DrKianna Tripathi PROF 14(COMP METB)on 023 Albumin [Mass/Vol] 3.0 g/dL Critically low 3.4-5.0 [facility] Comment on above: Performed By: #### C MP ####[facility] Pgqnciwonc6329 [place] [address]Dr. Airam Tripathi Albumin/Globulin [Mass ratio] 1.1 {ratio} Normal [facility] Comment on above: Performed By: #### C MP ####[facility] Jixnfzgluq46[address] [place], [place] [address]Dr. Airam Tripathi ALP [Catalytic activity/Vol] 102 U/L Normal 46-116 [facility] Comment on above: Performed By: #### C MP ####[facility] Jvaayphotv75[address] [place], [place] [address]Dr. Airam Tripathi ALT [Catalytic activity/Vol] 20 U/L Normal 14-59 [facility] Comment on above: Performed By: #### C MP ####[facility] Qkaaxdtswy00[address] [place], [place] [address]Dr. Airam Tripathi Anion gap [Moles/Vol] 11.1 mmol/L Normal Th [facility] Comment on above: Performed By: #### C MP ####[facility] Mdagogybkm3735 [place] [address]Dr. Airam Tripathi AST [Catalytic activity/Vol] 18 U/L Normal 15-37 [facility] Comment on above: Performed By: #### C MP ####[facility] Dwgjmupfzc5997 [place] [address]DrKianna Tripathi Bilirubin [Mass/Vol] 0.2 mg/dL Normal 0.2-1.0 [facility] Comment on above: Performed By: #### C MP ####[facility] Jtxiqjrjwv0867 [place] [address]Dr. Airam Tripathi Calcium [Mass/Vol] 8.0 mg/dL Critically low 8.5-10.1 e [facility] Comment on above: Performed By: #### C MP ####[facility] Rdztcexeab9209 [place] [address]Dr. Airam Tripathi Chloride [Moles/Vol] 100 mmol/L Normal 98-107 [facility] Comment on above: Performed By: #### C MP ####[facility] Omuakbiicw4776 [place] [id number]. Airam Tripathi CO2 [Moles/Vol] 24.8 mmol/L Normal 21.0-32.0 [facility] Comment on above: Performed By: #### C MP ####[facility] Slckrkxsgg2510 [place] [address]Dr. Airam Tripathi Creatinine [Mass/Vol] 1.11 mg/dL Critically high 0.55-1.02 [facility] Comment on above: Performed By: #### C MP ####[facility] Sbjukvknzn[address] [place], [place] [address]Dr. Airam Tripathi EGFR-AF CYPRIOT >60 Normal >=60 [facility] Comment on above: Performed By: #### C MP ####[facility] Hiocerukmp68[address] [place], [place] [address]Dr. Airam Deuce EGFR-NON AF CYPRIOT 50 mL/min/1.73m2 Critically low >=60 [facility] Comment on above: Performed By: #### C MP ####[facility] Ymthahjvmo0881 [place] [address]Dr. Airam Deuce Globulin (S) [Mass/Vol] 2.8 g/dL Normal [facility] Comment on above: Performed By: #### C MP ####[facility] Xdpjrkawli3542 [place] [address]Dr. Airam Deuce Glucose [Mass/Vol] 77 mg/dL Normal 74-106 [facility] Comment on above: Performed By: #### C MP ####[facility] Aotivyegtm0218 [place] [address]Dr. Airam Tripathi Potassium [Moles/Vol] 4.9 mmol/L Normal 3.5-5.1 [facility] Comment on above: Performed By: #### C MP ####[facility] Vvbjgvgirf0465 [place] [address]Dr. Airam Tripathi Protein [Mass/Vol] 5.8 g/dL Critically low 6.4-8.2 Th [facility] Comment on above: Performed By: #### C MP ####[facility] Suefdmupjf480[address] [place], [place] [address]Dr. Airam Tripathi Sodium [Moles/Vol] 131 mmol/L Critically low 136-145 Th [facility] Comment on above: Performed By: #### C MP ####[facility] Wlkcshofbk25[address] [place], [place] [address]Dr. Airam Tripathi Urea nitrogen [Mass/Vol] 33.0 mg/dL Critically high 7.0-18.0 [facility] Comment on above: Performed By: #### C MP ####[facility] Luuuivwvuj[address] [place], [place] [address]Dr. Airam Tripathi Urea nitrogen/Creatinine [Mass ratio] 29.7 mg/mg Normal [facility] Comment on above: Performed By: #### C MP ####[facility] Fpqlmuhdrb[address] [place], [place] [address]Dr. Airam Tripathi ECHOCARDIO M/2D COMPLETEon 0 09-21-2022 ECHOCARDIO M/2D COMPLETE Normal [facility] OSMOLALITYon 09-21-2022 Osmolality [Osmolality] 282 mosm/kg Normal 275-295 [facility] Comment on above: Performed By: #### O SMO ####[facility] Nvknsnsznm230[address] [place], [place] [address]Dr. Airam Deuce PHOSPHOLIPIDSon 09-21-2022 Phospholipids, Serum 249 mg/dL Normal 151-288 [facility] Comment on above: Performed By: #### P HOSLIP ####[facility] Gmfhrzjcay02[address] [place], [place] [address]Dr. Airam Tripathi CBC AUTO DIFFon 09-20-2022 BASO # 0.0 103/ul Normal 0.0-0.1 [facility] Comment on above: Performed By: #### C BC ####[facility] Hspsdgnzlf7794 [place] [address]Dr. Airam Tripathi Basophils/100 WBC (Bld) 0.5 % Normal 0.2-2.0 [facility] Comment on above: Performed By: #### C BC ####[facility] Txrckftmam7829 [place] [address]Dr. Airam Tripathi EO # 0.2 103/ul Normal 0.0-0.7 [facility] Comment on above: Performed By: #### C BC ####[facility] Glnrauvmfm[address] [place], [place] [address]Dr. Airam Tripathi Eosinophils/100 WBC (Bld) 2.9 % Normal 0.9-7.0 [facility] Comment on above: Performed By: #### C BC ####[facility] Fbybqjfiby7[address] [place], [place] [address]Dr. Airam Tripathi Erythrocyte distribution width (RBC) [Ratio] 15.4 % Critically high 11.0-15.0 [facility] Comment on above: Performed By: #### C BC ####[facility] Tvuocbtujr[address] [place], [place] [address]Dr. Airam Tripathi Hematocrit (Bld) [Volume fraction] 26.3 % Critically low 36.0-48.0 [facility] Comment on above: Performed By: #### C BC ####[facility] Yphqkiricd[address] [place], [place] [address]Dr. Airam Tripathi Hemoglobin (Bld) [Mass/Vol] 8.2 g/dL Critically low 12.0-16.0 [facility] Comment on above: Performed By: #### C BC ####[facility] Nxgcvctpxn[address] [place], [place] [address]Dr. Airam Tripathi IG # 0.03 10e3/ul Normal 0.00-0.03 [facility] Comment on above: Performed By: #### C BC ####[facility] Ukqjjhfeln47[address] [place], [place] [address]Dr. Airam Tripathi IG % 0.4 % Normal 0.0-0.5 [facility] Comment on above: Performed By: #### C BC ####[facility] Cobdslwrbs2266 [place] [id number]. Airam Tripathi LYMPH # 1.9 103/ul Normal 1.2-3.8 [facility] Comment on above: Performed By: #### C BC ####[facility] Buyvkqtrtm0484 [place] [address]Dr. Airam Tripathi Lymphocytes/100 WBC (Bld) 23.0 % Normal 20.5-60.0 [facility] Comment on above: Performed By: #### C BC ####[facility] Odfjpadbbe0672 [place] [address]Dr. Airam Deuce MANUAL DIFF REQ NO Normal [facility] Comment on above: Performed By: #### C BC ####[facility] Jxxaixzocc3894 [place] [address]Dr. Airam Deuce MCH (RBC) [Entitic mass] 28.5 pg Normal 26.7-34.0 [facility] Comment on above: Performed By: #### C BC ####[facility] Jhyrotesqg8951 [place] [address]Dr. Airam Tripathi MCHC (RBC) [Mass/Vol] 31.2 g/dL Normal 29.9-35.2 [facility] Comment on above: Performed By: #### C BC ####[facility] Lxnemwqzps9174 [place] [id number]. Airam Tripathi MCV (RBC) [Entitic vol] 91.3 fL Normal 81.0-99.0 [facility] Comment on above: Performed By: #### C BC ####[facility] Frukrymqcg6895 [place] [address]Dr. Airam Tripathi MONO # 0.7 103/ul Normal 0.3-0.8 [facility] Comment on above: Performed By: #### C BC ####[facility] Bszktbqsoz2025 [place] [address]Dr. Airam Deuce Monocytes/100 WBC (Bld) 7.7 % Normal 1.7-12.0 [facility] Comment on above: Performed By: #### C BC ####[facility] Echeabizik8505 [place] [address]Dr. Airam Tripathi NEUT # 5.5 103/ul Normal 1.4-6.5 [facility] Comment on above: Performed By: #### C BC ####[facility] Gobcmdyxkk3971 [place] [address]Dr. Airam Tripathi Neutrophils/100 WBC (Bld) 65.5 % Normal 43.0-75.0 [facility] Comment on above: Performed By: #### C BC ####[facility] Hmdcebsbql7545 [place] [address]Dr. Airam Deuce Platelet mean volume (Bld) [Entitic vol] 9.1 fL Critically low 9.5-13.5 [facility] Comment on above: Performed By: #### C BC ####[facility] Bbdnrujati5938 [place] [address]Dr. Airam Tripathi PLT 258 103/ul Normal 150-450 [facility] Comment on above: Performed By: #### C BC ####[facility] Wuetglhtus8123 [place] [address]Dr. Selenaneil Tripathi RBC 2.88 106/ul Critically low 4.20-5.40 [facility] Comment on above: Performed By: #### C BC ####[facility] Ushllgmlqq7726 [place] [address]Dr. Airam Deuce WBC 8.4 103/ul Normal 4.0-11.0 [facility] Comment on above: Performed By: #### C BC ####[facility] Chabvwjcvg7435 [place] [address]DrKianna Tripatih PROF CHEM 8 (BAS METB)on Anion gap [Moles/Vol] 10.3 mmol/L Normal [facility] Comment on above: Performed By: #### B MP ####[facility] Slarrwjcja3105 [place] [address]DrKianna Tripathi Calcium [Mass/Vol] 7.9 mg/dL Critically low 8.5-10.1 [facility] Comment on above: Performed By: #### B MP ####[facility] Ogebtlwnqq3363 [place] [id number]. Airam Tripathi Chloride [Moles/Vol] 98 mmol/L Normal 98-107 [facility] Comment on above: Performed By: #### B MP ####[facility] Gvusrtoiou4091 [place] [id number]. Airam Tripathi CO2 [Moles/Vol] 27.5 mmol/L Normal 21.0-32.0 [facility] Comment on above: Performed By: #### B MP ####[facility] Kethnzqquo5157 [place] [id number]. Airam Tripathi Creatinine [Mass/Vol] 1.44 mg/dL Critically high 0.55-1.02 [facility] Comment on above: Performed By: #### B MP ####[facility] V[address]kmfuwzbs[address] [place], [place] [address]Dr. Airam Tripathi EGFR-AF CYPRIOT 45 mL/min/1.73m2 Critically low >=60 [facility] Comment on above: Performed By: #### B MP ####[facility] Qxdoussutq[address] [place], [place] [address]Dr. Airam Tripathi EGFR-NON AF CYPRIOT 37 mL/min/1.73m2 Critically low >=60 [facility] Comment on above: Performed By: #### B MP ####[facility] Qecmtgwepr[address] [place], [place] [address]Dr. Airam Tripathi Glucose [Mass/Vol] 91 mg/dL Normal 74-106 [facility] Comment on above: Performed By: #### B MP ####[facility] Z[address]zyvzlbvf[address] [place], [place] [address]Dr. Airam Tripathi Potassium [Moles/Vol] 4.8 mmol/L Normal 3.5-5.1 [facility] Comment on above: Performed By: #### B MP ####[facility] Gxwcubcjzm[address] [place], [place] [address]Dr. Airam Tripathi Sodium [Moles/Vol] 131 mmol/L Critically low 136-145 Th [facility] Comment on above: Performed By: #### B MP ####[facility] Cdzcbrczon5852 [place] [id number]. Airam Tripathi Urea nitrogen [Mass/Vol] 40.0 mg/dL Critically high 7.0-18.0 [facility] Comment on above: Performed By: #### B MP ####[facility] Ccgppxektr2680 [place], [place] [address]Hc. Selenaneil Deuce Urea nitrogen/Creatinine [Mass ratio] 27.8 mg/mg Normal [facility] Comment on above: Performed By: #### B MP ####[facility] Ruwmvgxben9425 [place] [id number]. Selenaneil Deuce Anion gap [Moles/Vol] 10.6 mmol/L Normal [facility] Comment on above: Performed By: #### B MP ####[facility] Rsarwtaqnu1481 [place] [address]Dr. Airam Tripathi Calcium [Mass/Vol] 7.9 mg/dL Critically low 8.5-10.1 [facility] Comment on above: Performed By: #### B MP ####[facility] Obpounsxwh7448 [place] [address]Dr. Airam Tripathi Chloride [Moles/Vol] 101 mmol/L Normal 98-107 [facility] Comment on above: Performed By: #### B MP ####[facility] Xjhdvnqxhv3990 [place] [address]Dr. Airam Tripathi CO2 [Moles/Vol] 27.4 mmol/L Normal 21.0-32.0 [facility] Comment on above: Performed By: #### B MP ####[facility] Vltoihmvcv5617 [place] [address]Dr. Aiarm Tripathi Creatinine [Mass/Vol] 1.35 mg/dL Critically high 0.55-1.02 [facility] Comment on above: Performed By: #### B MP ####[facility] Ftaqmmzekq8312 [place] [address]Dr. Airam Tripathi EGFR-AF CYPRIOT 48 mL/min/1.73m2 Critically low >=60 [facility] Comment on above: Performed By: #### B MP ####[facility] Wmsknigqfz9180 [place] [address]Dr. Airam Tripathi EGFR-NON AF CYPRIOT 40 mL/min/1.73m2 Critically low >=60 [facility] Comment on above: Performed By: #### B MP ####[facility] Azwyqotbcg7170 [place] [address]Dr. Airam Tripathi Glucose [Mass/Vol] 114 mg/dL Critically high 74-106 [facility] Comment on above: Performed By: #### B MP ####[facility] Nkafjjskau8966 [place] [id number]. Airam Tripathi Potassium [Moles/Vol] 5.0 mmol/L Normal 3.5-5.1 [facility] Comment on above: Performed By: #### B MP ####[facility] Bwkscevent9214 [place] [address]Dr. Airam Tripathi Sodium [Moles/Vol] 134 mmol/L Critically low 136-145 [facility] Comment on above: Performed By: #### B MP ####[facility] Vvuanfdrha4832 [place] [address]Dr. Airam Deuce Urea nitrogen [Mass/Vol] 40.0 mg/dL Critically high 7.0-18.0 [facility] Comment on above: Performed By: #### B MP ####[facility] Xutkrdpuiv9816 [place] [address]Dr. Selenaneil Deuce Urea nitrogen/Creatinine [Mass ratio] 29.6 mg/mg Normal [facility] Comment on above: Performed By: #### B MP ####[facility] Tenbercdrq[address] [place], [place] [id number]. Airam Deuce PTH INTACTon 09-20-2022 PTH, Intact 104 pg/mL Critically high 15-65 [facility] Comment on above: Performed By: #### P THINT ####[facility] W[address]qavdbmr[address] [place], [place] [address]Dr. Airam Tripathi BNPon 09-19-2022 Natriuretic peptide B (Bld) [Mass/Vol] 1272.0 pg/mL Critically high <=900.0 [facility] Comment on above: Performed By: #### H STROPN, TSH, K, BNP ####[facility] Hkqewtnwrg0518 [place] [address]Dr. Airam Tripathi CBC AUTO DIFFon 09-19-2022 BASO # 0.0 103/ul Normal 0.0-0.1 [facility] Comment on above: Performed By: #### C BC ####[facility] Spnqtwhfnm[address] [place], [place] [address]Dr. Airam Deuce Basophils/100 WBC (Bld) 0.5 % Normal 0.2-2.0 [facility] Comment on above: Performed By: #### C BC ####[facility] [facility] Tudpwtmosn[address] [place], [place] [address]Dr. Airam Tripathi EO # 0.2 103/ul Normal 0.0-0.7 [facility] Comment on above: Performed By: #### C BC ####[facility] Fgkulhonkx[address] [place], [place] [address]Dr. Airam Deuce Eosinophils/100 WBC (Bld) 2.6 % Normal 0.9-7.0 [facility] Comment on above: Performed By: #### C BC ####[facility] Ivrnoihabh[address] [place], [place] [address]Dr. Airam Tripathi Erythrocyte distribution width (RBC) [Ratio] 15.5 % Critically high 11.0-15.0 [facility] Comment on above: Performed By: #### C BC ####[facility] Cafuaachwl[address] [place], [place] [address]Dr. Airam Tripathi Hematocrit (Bld) [Volume fraction] 31.1 % Critically low 36.0-48.0 [facility] Comment on above: Performed By: #### C BC ####[facility] Lsehnmtjum[address] [place], [place] [address]Dr. Airam Tripathi Hemoglobin (Bld) [Mass/Vol] 9.6 g/dL Critically low 12.0-16.0 [facility] Comment on above: Performed By: #### C BC ####[facility] Lpwptdclqy[address] [place], [place] [address]Dr. Airam Tripathi IG # 0.04 10e3/ul Critically high 0.00-0.03 [facility] Comment on above: Performed By: #### C BC ####[facility] [address] [place] [address]DrKianna Tripathi IG % 0.5 % Normal 0.0-0.5 [facility] Comment on above: Performed By: #### C BC ####[facility] Bgdwuxukmt46[address] [place] [address]DrKianna Tripathi LYMPH # 1.0 103/ul Critically low 1.2-3.8 [facility] Comment on above: Performed By: #### C BC ####[facility] Vdtvinlwma97[address] [place] [address]DrKianna Tripathi Lymphocytes/100 WBC (Bld) 12.0 % Critically low 20.5-60.0 [facility] Comment on above: Performed By: #### C BC ####[facility] Tqgtagyweq[address] [place] [address]DrKianna Tripathi MANUAL DIFF REQ NO Normal [facility] Comment on above: Performed By: #### C BC ####[facility] Mponnfaryr10[address] [place] [address]DrKianna Tripathi MCH (RBC) [Entitic mass] 28.2 pg Normal 26.7-34.0 [facility] Comment on above: Performed By: #### C BC ####[facility] Zihbvzejdt[address] [place] [address]DrKianna Tripathi MCHC (RBC) [Mass/Vol] 30.9 g/dL Normal 29.9-35.2 [facility] Comment on above: Performed By: #### C BC ####[facility] Rulyyvfttx6[address] [place] [address]DrKianna Tripathi MCV (RBC) [Entitic vol] 91.5 fL Normal 81.0-99.0 [facility] Comment on above: Performed By: #### C BC ####[facility] Ifhawdfssc[address] [place] [address]DrKianna Tripathi MONO # 0.5 103/ul Normal 0.3-0.8 [facility] Comment on above: Performed By: #### C BC ####[facility] Xvqsgfzmlx7[address] [place] [address]Dr. Airam Tripathi Monocytes/100 WBC (Bld) 6.4 % Normal 1.7-12.0 [facility] Comment on above: Performed By: #### C BC ####[facility] Sslovtiygb[address] [place] [address]Dr. Airam Tripathi NEUT # 6.4 103/ul Normal 1.4-6.5 [facility] Comment on above: Performed By: #### C BC ####[facility] Qipppgctxb7833 [place] [address]Dr. Airam Tripathi Neutrophils/100 WBC (Bld) 78.0 % Critically high 43.0-75.0 [facility] Comment on above: Performed By: #### C BC ####[facility] Yrnrwbstig[address] [place] [address]Dr. Airam Tripathi Platelet mean volume (Bld) [Entitic vol] 9.1 fL Critically low 9.5-13.5 [facility] Comment on above: Performed By: #### C BC ####[facility] Rjxovrzavp0638 [place] [address]Dr. Airam Tripathi PLT 318 103/ul Normal 150-450 [facility] Comment on above: Performed By: #### C BC ####[facility] Elxvwuhmwv1862 [place] [address]Dr. Airam Tripathi RBC 3.40 106/ul Critically low 4.20-5.40 [facility] Comment on above: Performed By: #### C BC ####[facility] Auspxmdqno6579 [place] [address]Dr. Airam Tripathi WBC 8.2 103/ul Normal 4.0-11.0 [facility] Comment on above: Performed By: #### C BC ####[facility] Nklunrjyux[address] [place], [place] [address]DrKianna Airam Tripathi Covid-19 PCR (CVDTBH)on 08-25 SARS-CoV-2 (COVID-19) RNA MIKE+probe Ql (Unsp spec) Not detected Normal NOT DETECTED [facility] Comment on above: Result Comment: When [...] for this test is supported by the [employer] of Health and Human Service's declaration that [...] be used). Performed By: #### C VDTBH ####[facility] Zyioncvffl[address] [place] [address]Dr. Airam Tripathi LACTATE/LACTIC ACIDon 2022 Lactate [Moles/Vol] 0.4 mmol/L Normal 0.4-2.0 [facility] Comment on above: Performed By: #### L ACT ####[facility] Djopimkprs[address] [place], [place] [address]Dr. Airam Tripathi POTASSIUMon 09-19-2022 Potassium [Moles/Vol] 6.3 mmol/L Critically high 3.5-5.1 [facility] Comment on above: Performed By: #### H STROPN, TSH, K, BNP ####[facility] Qqfktwmjof[address] [place] [address]Dr. Airam Tripathi PROF 14(COMP METB)on 023 Albumin [Mass/Vol] 3.5 g/dL Normal 3.4-5.0 [facility] Comment on above: Performed By: #### C MP ####[facility] Ogobiywpod6421 [place] [address]Dr. Airam Deuce Albumin/Globulin [Mass ratio] 1.1 {ratio} Normal [facility] Comment on above: Performed By: #### C MP ####[facility] Rdlaqcebth[address] [place], [place] [address]Dr. Airam Tripathi ALP [Catalytic activity/Vol] 113 U/L Normal 46-116 [facility] Comment on above: Performed By: #### C MP ####[facility] Wqiasvjvqz[address] [place], [place] [address]Dr. Selenaneil Deuce ALT [Catalytic activity/Vol] 26 U/L Normal 14-59 [facility] Comment on above: Performed By: #### C MP ####[facility] Chajfvnozf[address] [place], [place] [address]Dr. Airam Tripathi Anion gap [Moles/Vol] 11.5 mmol/L Normal [facility] Comment on above: Performed By: #### C MP ####[facility] Slapqzlhys99[address] [place], [place] [address]Dr. Selenaneil Tripathi AST [Catalytic activity/Vol] 24 U/L Normal 15-37 [facility] Comment on above: Performed By: #### C MP ####[facility] Mloatpfdqd78[address] [place], [place] [address]Dr. Airam Tripathi Bilirubin [Mass/Vol] 0.3 mg/dL Normal 0.2-1.0 [facility] Comment on above: Performed By: #### C MP ####[facility] Ddmmbrxhxt9[address] [place], [place] [address]Dr. Airam Tripathi Calcium [Mass/Vol] 8.9 mg/dL Normal 8.5-10.1 [facility] Comment on above: Performed By: #### C MP ####[facility] Fmubvylvvp4[address] [place], [place] [address]Dr. Airam Tripathi Chloride [Moles/Vol] 103 mmol/L Normal 98-107 [facility] Comment on above: Performed By: #### C MP ####[facility] Jazrartlwp[address] [place], [place] [address]Dr. Airam Tripathi CO2 [Moles/Vol] 27.8 mmol/L Normal 21.0-32.0 [facility] Comment on above: Performed By: #### C MP ####[facility] Wmjtxlqgho1352 [place] [address]Dr. Airam Deuce Creatinine [Mass/Vol] 1.28 mg/dL Critically high 0.55-1.02 [facility] Comment on above: Performed By: #### C MP ####[facility] Vwnyotejec[address] [place], [place] [address]Dr. Airam Deuce EGFR-AF CYPRIOT 52 mL/min/1.73m2 Critically low >=60 [facility] Comment on above: Performed By: #### C MP ####[facility] Hlhbnlwkfx[address] [place], [place] [address]Dr. Selenaneil Deuce EGFR-NON AF CYPRIOT 43 mL/min/1.73m2 Critically low >=60 [facility] Comment on above: Performed By: #### C MP ####[facility] Iszdguugyh[address] [place], [place] [address]Dr. Selenaneil Tripathi Globulin (S) [Mass/Vol] 3.2 g/dL Normal [facility] Comment on above: Performed By: #### C MP ####[facility] Bijtgzcdum[address] [place], [place] [address]Dr. Airam Deuce Glucose [Mass/Vol] 95 mg/dL Normal 74-106 [facility] Comment on above: Performed By: #### C MP ####[facility] Wdicbmdmqh[address] [place], [place] [address]Dr. Airam Tripathi Potassium [Moles/Vol] 6.3 mmol/L Critically high 3.5-5.1 [facility] Comment on above: Performed By: #### C MP ####[facility] Akhoyudkad[address] [place], [place] [address]Dr. Airam Tripathi Protein [Mass/Vol] 6.7 g/dL Normal 6.4-8.2 [facility] Comment on above: Performed By: #### C MP ####[facility] Cuvcdfcnog[address] [place], [place] [address]Dr. Airam Tripathi Sodium [Moles/Vol] 135 mmol/L Critically low 136-145 [facility] Comment on above: Performed By: #### C MP ####[facility] Rymflokjcn[address] [place] [address]Dr. Airam Tripathi Urea nitrogen [Mass/Vol] 42.0 mg/dL Critically high 7.0-18.0 [facility] Comment on above: Performed By: #### C MP ####[facility] Tqaywhcryl4074 [place] [address]Dr. Airam Tripathi Urea nitrogen/Creatinine [Mass ratio] 32.8 mg/mg Normal [facility] Comment on above: Performed By: #### C MP ####[facility] M[address]vdblfthh[address] [place], [place] [address]Dr. Airam Tripathi TROPONIN, HIGH SENSITIVITYon 09-19-2022 HSTROP 7.1 pg/mL Normal 4.0-51.3 [facility] Comment on above: Result Comment: CUT- OFF POINTS HAVE BEEN ESTABLISHED BASED ON THE FOURTH UNIVERSAL DEFINITIONS OF MYOCARDIALINFARCTION. THE UPPER REFERENCE LIMIT (URL) OF TROPONIN, DEFINED THE 99TH PERCENTILE OFcTnI DISTRIBUTION IN A REFERENCE POPULATION, HAS BEEN CONFIRMED THE DECISION THRESHOLDFOR HI DIAGNOSIS. Performed By: #### H STROPN, TSH, K, BNP ####[facility] Oklvdfyuny[address] [place], [place] [address]Dr. Airam Tripathi TSHon 09-19-2022 TSH 0.028 uIU/mL Critically low 0.358-3.740 [facility] Comment on above: Performed By: #### H STROPN, TSH, K, BNP ####[facility] Mkrdqnkchv[address] [place] [address]Dr. Airam Deuce UA RANDOMon 09-19-2022 Bilirubin Ql (U) Negative Normal NEGATIVE [facility] Comment on above: Performed By: #### U A ####[facility] Ounmbchmqn260[address] [place] [address]Dr. Airam Deuce Clarity (U) CLEAR Normal CLEAR [facility] Comment on above: Performed By: #### U A ####[facility] Bqhtycyred5135 [place] [address]Dr. Airam Tripathi Color (U) LT. YELLOW Normal YELLOW [facility] Comment on above: Performed By: #### U A ####[facility] Qsgkkpddlu9[address] [place], [place] [address]Dr. Airam Deuce Glucose Ql (U) Negative Normal NEGATIVE [facility] Comment on above: Performed By: #### U A ####[facility] Botwhblbew[address] [place], [place] [address]Dr. Selenaneil Deuce Hemoglobin Ql (U) Negative Normal NEGATIVE [facility] Comment on above: Performed By: #### U A ####[facility] Ciahvpyzpq[address] [place], [place] [address]Dr. Airam Tripathi Ketones Ql (U) Negative Normal NEGATIVE [facility] Comment on above: Performed By: #### U A ####[facility] Oevepgicrk04[address] [place], [place] [address]Dr. Airam Tripathi LEUKOCYTES TRACE Abnormal NEGATIVE [facility] Comment on above: Performed By: #### U A ####[facility] Z[address]wdlkbrg6[address] [place], [place] [address]Dr. Airam Tripathi Nitrite Ql (U) Negative Normal NEGATIVE [facility] Comment on above: Performed By: #### U A ####[facility] Geckjmfwrd[address] [place], [place] [address]Dr. Airam Tripathi pH (U) 5.5 [pH] Normal 5-9 [facility] Comment on above: Performed By: #### U A ####[facility] Htznyyocwl9[address] [place], [place] [address]Dr. Airam Tripathi SPEC GRAVITY 1.010 Normal 1.005-<=1.02 5 [facility] Comment on above: Performed By: #### U A ####[facility] Bwtwactiwz6820[address] [place], [place] [address]Dr. Airam Tripathi UA PROTEIN Negative Normal NEGATIVE/ TRACE [facility] Comment on above: Performed By: #### U A ####[facility] Bdnhntzekk76[address] [place], [place] [address]Dr. Airam Tripathi Urobilinogen Qn (U) 0.2 {Ligia'U}/dL Normal 0.2 - 1. 0 [facility] Comment on above: Performed By: #### U A ####[facility] Atcxanrukh7833[address] [place], [place] [address]Dr. Airam Tripathi URIC ACID SERUMon 09-19-2022 Urate [Mass/Vol] 6.9 mg/dL Critically high 2.6-6.0 [facility] Comment on above: Performed By: #### U TRESSA ####[facility] Hdcnrbytso[address] [place], [place] [address]Dr. Airam Tripathi URINE T PROTEIN CREAT RATIOo n 09-19-2022 UR TOTAL PROTEIN <6.0 Normal <=12.0 [facility] Comment on above: Performed By: #### U RTPCR ####[facility] Ocqrjxmsog88[address] [place], [place] [address]Dr. Airam Tripathi URINE CREAT 15.12 mg/dL Critically low 20.00-300.00 [facility] Comment on above: Performed By: #### U RTPCR ####[facility] Wnlshfgwpq32[address] [place], [place] [address]Dr. Airam Tripathi VITAMIN D 25 OHon 09-19-2022 VIT D 25-OH 75.9 ng/mL Normal [facility] Comment on above: Performed By: #### V ITAD ####[facility] Dmgqcqsqfy35[address] [place], [place] [address]Dr. Airam Tripathi VIT D RANGES SEE BELOW Normal [facility] Comment on above: Result Comment: <20 ng/mL Vit D deficient 20 - <30 ng/mL Vit D insufficient 30 - 100 ng/mL Vit D sufficient >100 ng/mL Potential Toxicity Performed By: #### V ITAD ####[facility] Lxgistpfpf[address] [place], [place] [address]Dr. Airam Tripathi OSMOLALITYon 09-14-2022 Osmolality [Osmolality] 272 mosm/kg Critically low 275-295 [facility] Comment on above: Performed By: #### O SMO ####[facility] Hiozgsefsz[address] [place], [place] [address]Dr. Airam Tripathi CBC AUTO DIFFon 09-12-2022 BASO # 0.0 103/ul Normal 0.0-0.1 [facility] Comment on above: Performed By: #### C BC ####[facility] Mzjbhyjxby5[address] [place], [place] [address]Dr. Airam Tripathi Basophils/100 WBC (Bld) 0.5 % Normal 0.2-2.0 [facility] Comment on above: Performed By: #### C BC ####[facility] Vxrcletuxv86[address] [place], [place] [address]Dr. Selenaneil Deuce EO # 0.2 103/ul Normal 0.0-0.7 [facility] Comment on above: Performed By: #### C BC ####[facility] Edrayagdnv5[address] [place], [place] [address]Dr. Selenaneil Deuce Eosinophils/100 WBC (Bld) 2.4 % Normal 0.9-7.0 [facility] Comment on above: Performed By: #### C BC ####[facility] Qmpfvfoudi139[address] [place], [place] [address]Dr. Airam Tripathi Erythrocyte distribution width (RBC) [Ratio] 14.8 % Normal 11.0-15.0 [facility] Comment on above: Performed By: #### C BC ####[facility] Uyfksvzead[address] [place], [place] [address]Dr. Selenaneil Deuce Hematocrit (Bld) [Volume fraction] 32.6 % Critically low 36.0-48.0 [facility] Comment on above: Performed By: #### C BC ####[facility] Bghkgeyvsg7[address] [place], [place] [address]Dr. Airam Tripathi Hemoglobin (Bld) [Mass/Vol] 10.1 g/dL Critically low 12.0-16.0 [facility] Comment on above: Performed By: #### C BC ####[facility] Rhsieodbsi[address] [place], [place] [address]Dr. Airam Tripathi IG # 0.05 10e3/ul Critically high 0.00-0.03 [facility] Comment on above: Performed By: #### C BC ####[facility] Zwvfncvczw7432 [place] [address]Dr. Selenaneil Tripathi IG % 0.7 % Critically high 0.0-0.5 [facility] Comment on above: Performed By: #### C BC ####[facility] Cydrtxwkub[address] [place] [address]Dr. Selenaneil Deuce LYMPH # 1.9 103/ul Normal 1.2-3.8 [facility] Comment on above: Performed By: #### C BC ####[facility] Lfjnexqzva6[address] [place], [place] [address]DrKianna Selenaneil Tripathi Lymphocytes/100 WBC (Bld) 24.7 % Normal 20.5-60.0 [facility] Comment on above: Performed By: #### C BC ####[facility] Arigzmqvkf617[address] [place], [place] [address]DrKianna Tripathi MANUAL DIFF REQ NO Normal [facility] Comment on above: Performed By: #### C BC ####[facility] Yxtzguqtyl3034 [place] [address]Dr. Airam Deuce MCH (RBC) [Entitic mass] 28.0 pg Normal 26.7-34.0 [facility] Comment on above: Performed By: #### C BC ####[facility] Tbvvwjogty4[address] [place], [place] [address]Dr. Airam Deuce MCHC (RBC) [Mass/Vol] 31.0 g/dL Normal 29.9-35.2 [facility] Comment on above: Performed By: #### C BC ####[facility] Oiciosjzqh4534[address] [place], [place] [address]DrKianna Selenaneil Tripathi MCV (RBC) [Entitic vol] 90.3 fL Normal 81.0-99.0 [facility] Comment on above: Performed By: #### C BC ####[facility] Cuyyajbehp22[address] [place], [place] [address]DrKianna Tripathi MONO # 0.5 103/ul Normal 0.3-0.8 [facility] Comment on above: Performed By: #### C BC ####[facility] Jatrowrvib4[address] [place], [place] [address]Dr. Airam Tripathi Monocytes/100 WBC (Bld) 6.0 % Normal 1.7-12.0 [facility] Comment on above: Performed By: #### C BC ####[facility] Ppyrlkigmi3[address] [place] [address]Dr. Airam Tripathi NEUT # 5.0 103/ul Normal 1.4-6.5 [facility] Comment on above: Performed By: #### C BC ####[facility] Uylzownvbe4383 [place] [address]Dr. Airam Tripathi Neutrophils/100 WBC (Bld) 65.7 % Normal 43.0-75.0 [facility] Comment on above: Performed By: #### C BC ####[facility] Fjoqdvgcvs8297 [place] [address]Dr. Airam Tripathi Platelet mean volume (Bld) [Entitic vol] 9.5 fL Normal 9.5-13.5 [facility] Comment on above: Performed By: #### C BC ####[facility] Axvevmxvqe2610 [place] [address]Dr. Airam Tripathi PLT 307 103/ul Normal 150-450 [facility] Comment on above: Performed By: #### C BC ####[facility] Xiuyjmchws3318[address] [place], [place] [address]Dr. Airam Tripathi RBC 3.61 106/ul Critically low 4.20-5.40 [facility] Comment on above: Performed By: #### C BC ####[facility] Wgexbgptyg230[address] [place], [place] [address]Dr. Airam Tripathi WBC 7.5 103/ul Normal 4.0-11.0 [facility] Comment on above: Performed By: #### C BC ####[facility] Shrmexlypp1909 [place] [address]Dr. Selenaneil Tripathi PROF 14(COMP METB)on 023 Albumin [Mass/Vol] 3.5 g/dL Normal 3.4-5.0 [facility] Comment on above: Performed By: #### C MP ####[facility] Zjelvgbdhy7583 [place] [address]Dr. Selenaneil Tripathi Albumin/Globulin [Mass ratio] 1.1 {ratio} Normal [facility] Comment on above: Performed By: #### C MP ####[facility] Xihdhdakum378[address] [place], [place] [address]Dr. Airam Tripathi ALP [Catalytic activity/Vol] 126 U/L Critically high 46-116 [facility] Comment on above: Performed By: #### C MP ####[facility] Slpkrlxjhm5556[address] [place], [place] [address]Dr. Airam Tripathi ALT [Catalytic activity/Vol] 18 U/L Normal 14-59 [facility] Comment on above: Performed By: #### C MP ####[facility] Fxekmgzgmp95[address] [place], [place] [address]Dr. Airam Tripathi Anion gap [Moles/Vol] 11.1 mmol/L Normal [facility] Comment on above: Performed By: #### C MP ####[facility] Jgsalkubjb2513[address] [place], [place] [address]Dr. Airma Tripathi AST [Catalytic activity/Vol] 26 U/L Normal 15-37 [facility] Comment on above: Performed By: #### C MP ####[facility] Jjwbndquhd6[address] [place], [place] [address]Dr. Airam Tripathi Bilirubin [Mass/Vol] 0.3 mg/dL Normal 0.2-1.0 [facility] Comment on above: Performed By: #### C MP ####[facility] Kzlaaelbdf24[address] [place], [place] [address]Dr. Airam Tripathi Calcium [Mass/Vol] 8.5 mg/dL Normal 8.5-10.1 [facility] Comment on above: Performed By: #### C MP ####[facility] Ewunbasmkg8[address] [place], [place] [address]Dr. Airam Tripathi Chloride [Moles/Vol] 98 mmol/L Normal 98-107 [facility] Comment on above: Performed By: #### C MP ####[facility] Xvipwtupet8[address] [place], [place] [address]Dr. Airam Tripathi CO2 [Moles/Vol] 23.9 mmol/L Normal 21.0-32.0 [facility] Comment on above: Performed By: #### C MP ####[facility] Oxxjrtxefu95[address] [place], [place] [address]Dr. Airam Deuce Creatinine [Mass/Vol] 1.40 mg/dL Critically high 0.55-1.02 [facility] Comment on above: Performed By: #### C MP ####[facility] Wyppxvtyfh82[address] [place], [place] [address]Dr. Selenaneil Deuce EGFR-AF CYPRIOT 46 mL/min/1.73m2 Critically low >=60 [facility] Comment on above: Performed By: #### C MP ####[facility] Btgzljeddj06[address] [place], [place] [address]Dr. Airam Tripathi EGFR-NON AF CYPRIOT 38 mL/min/1.73m2 Critically low >=60 [facility] Comment on above: Performed By: #### C MP ####[facility] Gtgczbnhuz[address] [place], [place] [address]Dr. Airam Tripathi Globulin (S) [Mass/Vol] 3.3 g/dL Normal [facility] Comment on above: Performed By: #### C MP ####[facility] Tdnmphduya[address] [place], [place] [address]Dr. Airam Tripathi Glucose [Mass/Vol] 72 mg/dL Critically low 74-106 [facility] Comment on above: Performed By: #### C MP ####[facility] Ivajnppbds[address] [place], [place] [address]Dr. Airam Tripathi Potassium [Moles/Vol] 5.0 mmol/L Normal 3.5-5.1 [facility] Comment on above: Performed By: #### C MP ####[facility] Tmiwoouwhj[address] [place], [place] [address]Dr. Airam Tripathi Protein [Mass/Vol] 6.8 g/dL Normal 6.4-8.2 [facility] Comment on above: Performed By: #### C MP ####[facility] Kwdwnboggn[address] [place], [place] [address]Dr. Airam Tripathi Sodium [Moles/Vol] 128 mmol/L Critically low 136-145 Th e [facility] Comment on above: Performed By: #### C MP ####[facility] Nkyyefyzuo[address] [place], [place] [address]Dr. Airam Tripathi Urea nitrogen [Mass/Vol] 27.0 mg/dL Critically high 7.0-18.0 [facility] Comment on above: Performed By: #### C MP ####[facility] Qjtspcqmco6[address] [place], [place] [address]Dr. Airam Deuce Urea nitrogen/Creatinine [Mass ratio] 19.3 mg/mg Normal [facility] Comment on above: Performed By: #### C MP ####[facility] Qeoitjpjjd636[address] [place], [place] [address]Dr. Airam Deuce OSMOLALITYon 09-10-2022 Osmolality [Osmolality] 275 mosm/kg Normal 275-295 [facility] Comment on above: Performed By: #### O SMO ####[facility] Sifsmkdddx45[address] [place], [place] [address]Dr. Airam Deuce CBC AUTO DIFFon 09-08-2022 BASO # 0.0 103/ul Normal 0.0-0.1 [facility] Comment on above: Performed By: #### C BC ####[facility] Mhbzkpogmd52[address] [place], [place] [address]Dr. Selenaneil Tripathi Basophils/100 WBC (Bld) 0.5 % Normal 0.2-2.0 [facility] Comment on above: Performed By: #### C BC ####[facility] Wcibquccpx3[address] [place], [place] [address]DrKianna Airam Deuce EO # 0.1 103/ul Normal 0.0-0.7 [facility] Comment on above: Performed By: #### C BC ####[facility] Geisenwfvh646[address] [place], [place] [address]Dr. Airam Deuce Eosinophils/100 WBC (Bld) 1.7 % Normal 0.9-7.0 [facility] Comment on above: Performed By: #### C BC ####[facility] Kmpkizroyc[address] [place], [place] [address]Dr. Airam Tripathi Erythrocyte distribution width (RBC) [Ratio] 14.7 % Normal 11.0-15.0 [facility] Comment on above: Performed By: #### C BC ####[facility] Oobicclulr[address] [place] [address]Dr. Airam Tripathi Hematocrit (Bld) [Volume fraction] 30.3 % Critically low 36.0-48.0 [facility] Comment on above: Performed By: #### C BC ####[facility] Twrzhvtljk[address] [place] [address]Dr. Airam Tripathi Hemoglobin (Bld) [Mass/Vol] 9.3 g/dL Critically low 12.0-16.0 [facility] Comment on above: Performed By: #### C BC ####[facility] Awumbewgwk5900[address] [place], [place] [address]Dr. Airam Tripathi IG # 0.03 10e3/ul Normal 0.00-0.03 [facility] Comment on above: Performed By: #### C BC ####[facility] Tqymaaxusn[address] [place], [place] [address]Dr. Airam Tripathi IG % 0.5 % Normal 0.0-0.5 [facility] Comment on above: Performed By: #### C BC ####[facility] Tzbvgbxjec[address] [place], [place] [address]Dr. Airam Tripathi LYMPH # 0.9 103/ul Critically low 1.2-3.8 [facility] Comment on above: Performed By: #### C BC ####[facility] Xcuqshcpbo[address] [place], [place] [address]Dr. Airam Tripathi Lymphocytes/100 WBC (Bld) 13.6 % Critically low 20.5-60.0 [facility] Comment on above: Performed By: #### C BC ####[facility] Kumqjrcaxd5[address] [place], [place] [address]Dr. Airam Tripathi MANUAL DIFF REQ NO Normal [facility] Comment on above: Performed By: #### C BC ####[facility] Zccylddiyu9409[address] [place], [place] [address]Dr. Airam Tripathi MCH (RBC) [Entitic mass] 27.4 pg Normal 26.7-34.0 [facility] Comment on above: Performed By: #### C BC ####[facility] Tvvxprxysc4[address] [place] [address]Dr. Airam Tripathi MCHC (RBC) [Mass/Vol] 30.7 g/dL Normal 29.9-35.2 [facility] Comment on above: Performed By: #### C BC ####[facility] Bblylbmwfe33[address] [place] [address]Dr. Airam Tripathi MCV (RBC) [Entitic vol] 89.4 fL Normal 81.0-99.0 [facility] Comment on above: Performed By: #### C BC ####[facility] Xihuojkzmt516[address] [place], [place] [address]Dr. Airam Deuce MONO # 0.5 103/ul Normal 0.3-0.8 [facility] Comment on above: Performed By: #### C BC ####[facility] Fdlrwhqmjg266[address] [place], [place] [address]Dr. Selenaneil Tripathi Monocytes/100 WBC (Bld) 8.0 % Normal 1.7-12.0 [facility] Comment on above: Performed By: #### C BC ####[facility] Fxllskcpro6[address] [place], [place] [address]Dr. Airam Tripathi NEUT # 5.0 103/ul Normal 1.4-6.5 [facility] Comment on above: Performed By: #### C BC ####[facility] Wfzrsxprxy[address] [place], [place] [address]Dr. Selenaneil Tripathi Neutrophils/100 WBC (Bld) 75.7 % Critically high 43.0-75.0 [facility] Comment on above: Performed By: #### C BC ####[facility] Cfkbhhiful9324[address] [place], [place] [address]Dr. Airam Deuce Platelet mean volume (Bld) [Entitic vol] 10.4 fL Normal 9.5-13.5 [facility] Comment on above: Performed By: #### C BC ####[facility] Lzexrqmmjz37[address] [place] [id number]. Airam Deuce PLT 315 103/ul Normal 150-450 [facility] Comment on above: Performed By: #### C BC ####[facility] Aknxlagzws[address]76 [place] [address]Dr. Airam Tripathi RBC 3.39 106/ul Critically low 4.20-5.40 [facility] Comment on above: Performed By: #### C BC ####[facility] Hdvbiiohox1883 [place] [address]Dr. Airam Tripathi WBC 6.5 103/ul Normal 4.0-11.0 [facility] Comment on above: Performed By: #### C BC ####[facility] Lmrvwletmp3235 [place] [address]Dr. Airam Tripathi PROF 14(COMP METB)on 023 Albumin [Mass/Vol] 3.1 g/dL Critically low 3.4-5.0 [facility] Comment on above: Performed By: #### C MP ####[facility] Vocjqeshec737[address] [place], [place] [address]Dr. Selenaneil Tripathi Albumin/Globulin [Mass ratio] 1.0 {ratio} Normal [facility] Comment on above: Performed By: #### C MP ####[facility] Eauiagjkgm14[address] [place] [address]Dr. Airam Tripathi ALP [Catalytic activity/Vol] 126 U/L Critically high 46-116 [facility] Comment on above: Performed By: #### C MP ####[facility] Rgznfombee5177 [place] [address]Dr. Airam Trpiathi ALT [Catalytic activity/Vol] 18 U/L Normal 14-59 [facility] Comment on above: Performed By: #### C MP ####[facility] Kwfykmfduk[address] [place] [address]Dr. Airam Tripathi Anion gap [Moles/Vol] 11.4 mmol/L Normal [facility] Comment on above: Performed By: #### C MP ####[facility] Aufovnxzpu1749 [place] [address]Dr. Airam Tripathi AST [Catalytic activity/Vol] 25 U/L Normal 15-37 [facility] Comment on above: Performed By: #### C MP ####[facility] Ndokogdegp2137 [place] [address]Dr. Airam Tripathi Bilirubin [Mass/Vol] 0.3 mg/dL Normal 0.2-1.0 [facility] Comment on above: Performed By: #### C MP ####[facility] Rhdfeyskvm[address] [place], [place] [address]Dr. Airam Tripathi Calcium [Mass/Vol] 8.6 mg/dL Normal 8.5-10.1 [facility] Comment on above: Performed By: #### C MP ####[facility] Rqsddvxnhw756[address] [place], [place] [address]Dr. Airam Tripathi Chloride [Moles/Vol] 97 mmol/L Critically low 98-107 [facility] Comment on above: Performed By: #### C MP ####[facility] Cimjaamdrs8099[address] [place], [place] [address]Dr. Airam Tripathi CO2 [Moles/Vol] 26.1 mmol/L Normal 21.0-32.0 [facility] Comment on above: Performed By: #### C MP ####[facility] Slhpumalvw2830[address] [place], [place] [address]Dr. Airam Tripathi Creatinine [Mass/Vol] 1.07 mg/dL Critically high 0.55-1.02 [facility] Comment on above: Performed By: #### C MP ####[facility] Mnozepqnld80[address] [place], [place] [address]Dr. Airam Tripathi EGFR-AF CYPRIOT >60 Normal >=60 [facility] Comment on above: Performed By: #### C MP ####[facility] Wjyklgmbzk0029[address] [place], [place] [address]Dr. Airam Tripathi EGFR-NON AF CYPRIOT 52 mL/min/1.73m2 Critically low >=60 [facility] Comment on above: Performed By: #### C MP ####[facility] Oeecbifwca103[address] [place], [place] [address]Dr. Airam Tripathi Globulin (S) [Mass/Vol] 3.2 g/dL Normal [facility] Comment on above: Performed By: #### C MP ####[facility] Vyfmguqyex4[address] [place], [place] [address]Dr. Airam Tripathi Glucose [Mass/Vol] 83 mg/dL Normal 74-106 [facility] Comment on above: Performed By: #### C MP ####[facility] Sqxesmzlvh33[address] [place], [place] [address]Dr. Airam Tripathi Potassium [Moles/Vol] 5.5 mmol/L Critically high 3.5-5.1 [facility] Comment on above: Performed By: #### C MP ####[facility] Forghgbame8000[address] [place], [place] [address]Dr. Airam Tripathi Protein [Mass/Vol] 6.3 g/dL Critically low 6.4-8.2 [facility] Comment on above: Performed By: #### C MP ####[facility] Nvgdbzdgyo680[address] [place], [place] [address]Dr. Airam Tripathi Sodium [Moles/Vol] 129 mmol/L Critically low 136-145 Th [facility] Comment on above: Performed By: #### C MP ####[facility] Xoobqsscqj6533[address] [place], [place] [address]Dr. Airam Tripathi Urea nitrogen [Mass/Vol] 37.0 mg/dL Critically high 7.0-18.0 [facility] Comment on above: Performed By: #### C MP ####[facility] Oixcoyqkhu9[address] [place], [place] [address]Dr. Airam Tripathi Urea nitrogen/Creatinine [Mass ratio] 34.6 mg/mg Normal [facility] Comment on above: Performed By: #### C MP ####[facility] Qbmuculzjh064[address] [place], [place] [address]DrKianna Tripathi OSMOLALITYon 09-02-2022 Osmolality [Osmolality] 279 mosm/kg Normal 275-295 [facility] Comment on above: Performed By: #### O SMO ####[facility] Psktvtmwko5[address] [place], [place] [address]DrKianna Tripathi CBC AUTO DIFFon 08-31-2022 BASO # 0.0 103/ul Normal 0.0-0.1 [facility] Comment on above: Performed By: #### C BC ####[facility] Gzfcxcjvsk8476 [place] [id number]. Airam Tripathi Basophils/100 WBC (Bld) 0.4 % Normal 0.2-2.0 [facility] Comment on above: Performed By: #### C BC ####[facility] Jevjxbstxa220[address] [place] [address]Dr. Airam Tripathi EO # 0.2 103/ul Normal 0.0-0.7 [facility] Comment on above: Performed By: #### C BC ####[facility] Bgrwgnrcca97[address] [place], [place] [address]Dr. Airam Deuce Eosinophils/100 WBC (Bld) 3.2 % Normal 0.9-7.0 [facility] Comment on above: Performed By: #### C BC ####[facility] Fteurjsizu[address] [place], [place] [address]Dr. Airam Tripathi Erythrocyte distribution width (RBC) [Ratio] 14.4 % Normal 11.0-15.0 [facility] Comment on above: Performed By: #### C BC ####[facility] Pnowkeikzi5[address] [place], [place] [address]Dr. Airam Tripathi Hematocrit (Bld) [Volume fraction] 27.8 % Critically low 36.0-48.0 [facility] Comment on above: Performed By: #### C BC ####[facility] Gicojxvfgz23[address] [place], [place] [address]Dr. Airam Tripathi Hemoglobin (Bld) [Mass/Vol] 8.7 g/dL Critically low 12.0-16.0 [facility] Comment on above: Performed By: #### C BC ####[facility] Folxcrcudf38[address] [place] [address]Dr. Airam Deuce IG # 0.05 10e3/ul Critically high 0.00-0.03 [facility] Comment on above: Performed By: #### C BC ####[facility] Nypykacxfw3083 [place] [id number]. Airam Tripathi IG % 0.7 % Critically high 0.0-0.5 [facility] Comment on above: Performed By: #### C BC ####[facility] Xnfxgahfaf0796 [place] [id number]. Airam Tripathi LYMPH # 1.7 103/ul Normal 1.2-3.8 [facility] Comment on above: Performed By: #### C BC ####[facility] Rhirhtrrew7923 [place] [address]Dr. Airam Deuce Lymphocytes/100 WBC (Bld) 23.6 % Normal 20.5-60.0 [facility] Comment on above: Performed By: #### C BC ####[facility] Kwiwodofkp6043 [place] [address]Dr. Airam Deuce MANUAL DIFF REQ NO Normal [facility] Comment on above: Performed By: #### C BC ####[facility] Cgjvaxpevu7381 [place] [address]Dr. Airam Tripathi MCH (RBC) [Entitic mass] 27.8 pg Normal 26.7-34.0 [facility] Comment on above: Performed By: #### C BC ####[facility] Usebmfwkaa2588 [place] [address]Dr. Airam Tripathi MCHC (RBC) [Mass/Vol] 31.3 g/dL Normal 29.9-35.2 [facility] Comment on above: Performed By: #### C BC ####[facility] Wegwjspqsy6910 [place] [address]Dr. Airam Tripathi MCV (RBC) [Entitic vol] 88.8 fL Normal 81.0-99.0 [facility] Comment on above: Performed By: #### C BC ####[facility] Mefjrmwlcb94[address] [place], [place] [address]Dr. Airam Deuce MONO # 0.5 103/ul Normal 0.3-0.8 [facility] Comment on above: Performed By: #### C BC ####[facility] Nqypgoscoe8415 [place] [id number]. Airam Tripathi Monocytes/100 WBC (Bld) 6.9 % Normal 1.7-12.0 [facility] Comment on above: Performed By: #### C BC ####[facility] Hjzflejlev7346 [place] [id number]. Airam Tripathi NEUT # 4.7 103/ul Normal 1.4-6.5 [facility] Comment on above: Performed By: #### C BC ####[facility] Lqzncbcfet4047 [place] [address]Dr. Airam Tripathi Neutrophils/100 WBC (Bld) 65.2 % Normal 43.0-75.0 [facility] Comment on above: Performed By: #### C BC ####[facility] Atqpyavfdp0739 [place] [address]Dr. Airam Tripathi Platelet mean volume (Bld) [Entitic vol] 9.8 fL Normal 9.5-13.5 [facility] Comment on above: Performed By: #### C BC ####[facility] Rekvvtuofg3931 [place] [address]Dr. Airam Tripathi PLT 225 103/ul Normal 150-450 [facility] Comment on above: Performed By: #### C BC ####[facility] Ulttqeysev8809 [place] [address]Dr. Airam Tripathi RBC 3.13 106/ul Critically low 4.20-5.40 [facility] Comment on above: Performed By: #### C BC ####[facility] Wxnowmciwv0700 [place] [address]Dr. Airam Tripathi WBC 7.3 103/ul Normal 4.0-11.0 [facility] Comment on above: Performed By: #### C BC ####[facility] Igzckxdoew7878 [place] [address]Dr. Airam Tripathi PROF 14(COMP METB)on 023 Albumin [Mass/Vol] 3.0 g/dL Critically low 3.4-5.0 [facility] Comment on above: Performed By: #### C MP ####[facility] Faarnkslyi2983 [place] [address]Dr. Airam Deuce Albumin/Globulin [Mass ratio] 1.1 {ratio} Normal [facility] Comment on above: Performed By: #### C MP ####[facility] Yjxhslhsfc8223 [place] [address]Dr. Airam Deuce ALP [Catalytic activity/Vol] 132 U/L Critically high 46-116 [facility] Comment on above: Performed By: #### C MP ####[facility] Wchtfctzsc9491 [place] [address]Dr. Selenaneil Tripathi ALT [Catalytic activity/Vol] 20 U/L Normal 14-59 [facility] Comment on above: Performed By: #### C MP ####[facility] Jnneyaxaoa58[address] [place], [place] [address]Dr. Airam Tripathi Anion gap [Moles/Vol] 9.5 mmol/L Normal [facility] Comment on above: Performed By: #### C MP ####[facility] Rcqvibcway355[address] [place], [place] [address]Dr. Selenaneil Tripathi AST [Catalytic activity/Vol] 25 U/L Normal 15-37 [facility] Comment on above: Performed By: #### C MP ####[facility] Qygmxeulod7157[address] [place], [place] [address]Dr. Airam Tripathi Bilirubin [Mass/Vol] 0.2 mg/dL Normal 0.2-1.0 [facility] Comment on above: Performed By: #### C MP ####[facility] Ypcgntapta13[address] [place], [place] [address]Dr. Airam Tripathi Calcium [Mass/Vol] 7.9 mg/dL Critically low 8.5-10.1 Th e [facility] Comment on above: Performed By: #### C MP ####[facility] Scadyivqkz268[address] [place], [place] [address]Dr. Airam Tripathi Chloride [Moles/Vol] 97 mmol/L Critically low 98-107 [facility] Comment on above: Performed By: #### C MP ####[facility] Pxxgwuinzm245[address] [place], [place] [address]Dr. Airam Tripathi CO2 [Moles/Vol] 27.3 mmol/L Normal 21.0-32.0 [facility] Comment on above: Performed By: #### C MP ####[facility] Gyxxrutixt3928 [place] [address]Dr. Airam Tripathi Creatinine [Mass/Vol] 1.58 mg/dL Critically high 0.55-1.02 [facility] Comment on above: Performed By: #### C MP ####[facility] Kfewydgpkj7436 [place] [address]Dr. Airam Tripathi EGFR-AF CYPRIOT 40 mL/min/1.73m2 Critically low >=60 [facility] Comment on above: Performed By: #### C MP ####[facility] Innkiketvw6350[address] [place], [place] [address]Dr. Airam Deuce EGFR-NON AF CYPRIOT 33 mL/min/1.73m2 Critically low >=60 [facility] Comment on above: Performed By: #### C MP ####[facility] Nvyaaliyrl1139[address] [place], [place] [address]Dr. Airam Tripathi Globulin (S) [Mass/Vol] 2.8 g/dL Normal [facility] Comment on above: Performed By: #### C MP ####[facility] Tvhtedubdq1206[address] [place], [place] [address]Dr. Airam Tripathi Glucose [Mass/Vol] 111 mg/dL Critically high 74-106 [facility] Comment on above: Performed By: #### C MP ####[facility] Fdhzgszmwe979[address] [place], [place] [address]Dr. Airam Deuce Potassium [Moles/Vol] 4.8 mmol/L Normal 3.5-5.1 [facility] Comment on above: Performed By: #### C MP ####[facility] Iohckahmck7823[address] [place], [place] [address]Dr. Airam Tripathi Protein [Mass/Vol] 5.8 g/dL Critically low 6.4-8.2 Th [facility] Comment on above: Performed By: #### C MP ####[facility] Jglinrfyuw2383 [place] [address]Dr. Airam Tripathi Sodium [Moles/Vol] 129 mmol/L Critically low 136-145 Th [facility] Comment on above: Performed By: #### C MP ####[facility] Glkfulsqgl5424[address] [place], [place] [address]Dr. Airam Tripathi Urea nitrogen [Mass/Vol] 44.0 mg/dL Critically high 7.0-18.0 [facility] Comment on above: Performed By: #### C MP ####[facility] Ebylwusilc4626[address] [place], [place] [address]Dr. Airam Tripathi Urea nitrogen/Creatinine [Mass ratio] 27.8 mg/mg Normal [facility] Comment on above: Performed By: #### C MP ####[facility] Vdizegwcgm[address] [place], [place] [address]Dr. Airam Tripathi OSMOLALITYon 08-28-2022 Osmolality [Osmolality] 288 mosm/kg Normal 275-295 [facility] Comment on above: Performed By: #### O SMO ####[facility] Hhycacczwa74[address] [place], [place] [address]Dr. Airam Tripathi CBC AUTO DIFFon 08-25-2022 BASO # 0.0 103/ul Normal 0.0-0.1 [facility] Comment on above: Performed By: #### C BC ####[facility] Yhyurqfgyg236[address] [place], [place] [address]Dr. Airam Deuce Basophils/100 WBC (Bld) 0.5 % Normal 0.2-2.0 [facility] Comment on above: Performed By: #### C BC ####[facility] Jonzscasmm39[address] [place], [place] [address]Dr. Airam Tripathi EO # 0.4 103/ul Normal 0.0-0.7 [facility] Comment on above: Performed By: #### C BC ####[facility] Ktsfoiktch8[address] [place], [place] [address]Dr. Airam Tripathi Eosinophils/100 WBC (Bld) 4.8 % Normal 0.9-7.0 [facility] Comment on above: Performed By: #### C BC ####[facility] Jrjxkfrwfo1223 [place] [address]Dr. Airam Tripathi Erythrocyte distribution width (RBC) [Ratio] 14.2 % Normal 11.0-15.0 [facility] Comment on above: Performed By: #### C BC ####[facility] Gmjolycptf[address] [place], [place] [address]Dr. Airam Tripathi Hematocrit (Bld) [Volume fraction] 31.1 % Critically low 36.0-48.0 [facility] Comment on above: Performed By: #### C BC ####[facility] Ckpxitcoxj8837[address] [place], [place] [address]Dr. Airam Tripathi Hemoglobin (Bld) [Mass/Vol] 9.7 g/dL Critically low 12.0-16.0 [facility] Comment on above: Performed By: #### C BC ####[facility] Fkpjjtfadn[address] [place], [place] [address]Dr. Airam Tripathi IG # 0.05 10e3/ul Critically high 0.00-0.03 [facility] Comment on above: Performed By: #### C BC ####[facility] Oqtpuubzlx[address] [place], [place] [address]Dr. Airam Tripathi IG % 0.6 % Critically high 0.0-0.5 [facility] Comment on above: Performed By: #### C BC ####[facility] Dtuymaihxa[address] [place], [place] [address]Dr. Airam Tripathi LYMPH # 1.7 103/ul Normal 1.2-3.8 [facility] Comment on above: Performed By: #### C BC ####[facility] Eoolllgxxk87[address] [place], [place] [address]Dr. Airam Tripathi Lymphocytes/100 WBC (Bld) 19.6 % Critically low 20.5-60.0 [facility] Comment on above: Performed By: #### C BC ####[facility] Yjmnuouxsf7[address] [place], [place] [address]Dr. Airam Tripathi MANUAL DIFF REQ NO Normal [facility] Comment on above: Performed By: #### C BC ####[facility] Unbdcmauvd9976 [place] [id number]. Airam Tripathi MCH (RBC) [Entitic mass] 28.2 pg Normal 26.7-34.0 [facility] Comment on above: Performed By: #### C BC ####[facility] Xhyxuhgzok1241 [place] [id number]. Airam Tripathi MCHC (RBC) [Mass/Vol] 31.2 g/dL Normal 29.9-35.2 [facility] Comment on above: Performed By: #### C BC ####[facility] Vqmltfaoln6060 [place] [id number]. Airam Tripathi MCV (RBC) [Entitic vol] 90.4 fL Normal 81.0-99.0 The [facility] Comment on above: Performed By: #### C BC ####[facility] Nzryltinie[address] [place], [place] [address]Dr. Airam Tripathi MONO # 0.6 103/ul Normal 0.3-0.8 [facility] Comment on above: Performed By: #### C BC ####[facility] Nqpqicmniy7079 [place] [address]Dr. Airam Tripathi Monocytes/100 WBC (Bld) 7.4 % Normal 1.7-12.0 [facility] Comment on above: Performed By: #### C BC ####[facility] Krxmgdsees[address] [place], [place] [id number]. Airam Tripathi NEUT # 5.8 103/ul Normal 1.4-6.5 [facility] Comment on above: Performed By: #### C BC ####[facility] Sswblfeqyr[address] [place], [place] [id number]. Airam Deuce Neutrophils/100 WBC (Bld) 67.1 % Normal 43.0-75.0 [facility] Comment on above: Performed By: #### C BC ####[facility] Rakejnpvfl[address] [place], [place] [id number]. Airam Tripathi Platelet mean volume (Bld) [Entitic vol] 9.9 fL Normal 9.5-13.5 [facility] Comment on above: Performed By: #### C BC ####[facility] Rfmnfvetmw8607 [place] [id number]. Airam Tripathi PLT 320 103/ul Normal 150-450 [facility] Comment on above: Performed By: #### C BC ####[facility] Ghgdltmdap4990 [place] [id number]. Airam Tripathi RBC 3.44 106/ul Critically low 4.20-5.40 [facility] Comment on above: Performed By: #### C BC ####[facility] Oaxcvlxvbq3744 [place] [id number]. Airam Tripathi WBC 8.6 103/ul Normal 4.0-11.0 [facility] Comment on above: Performed By: #### C BC ####[facility] Xxxgtcyfrf3231 [place] [address]Dr. Airam Tripathi PROF 14(COMP METB)on 023 Albumin [Mass/Vol] 3.4 g/dL Normal 3.4-5.0 [facility] Comment on above: Performed By: #### C MP ####[facility] Hgilrwjgdq1975 [place] [address]Dr. Airam Deuce Albumin/Globulin [Mass ratio] 1.1 {ratio} Normal [facility] Comment on above: Performed By: #### C MP ####[facility] Lzzmbtbyck1703 [place] [address]Dr. Selenaneil Deuce ALP [Catalytic activity/Vol] 170 U/L Critically high 46-116 [facility] Comment on above: Performed By: #### C MP ####[facility] Tpqyxnghzp9313 [place] [address]Dr. Airam Tripathi ALT [Catalytic activity/Vol] 22 U/L Normal 14-59 [facility] Comment on above: Performed By: #### C MP ####[facility] Fibtaemmyp1832 [place] [address]Dr. Airam Tripathi Anion gap [Moles/Vol] 14.4 mmol/L Normal [facility] Comment on above: Performed By: #### C MP ####[facility] Dzyjngcrbg7286 [place] [id number]. Airam Tripathi AST [Catalytic activity/Vol] 25 U/L Normal 15-37 [facility] Comment on above: Performed By: #### C MP ####[facility] Ufkkfwrdma9136 [place] [id number]. Airam Tripathi Bilirubin [Mass/Vol] 0.3 mg/dL Normal 0.2-1.0 [facility] Comment on above: Performed By: #### C MP ####[facility] Xalssnbcci0787 [place] [address]Dr. Airam Tripathi Calcium [Mass/Vol] 8.2 mg/dL Critically low 8.5-10.1 [facility] Comment on above: Performed By: #### C MP ####[facility] Xamyfsukup1581 [place] [address]Dr. Airam Tripathi Chloride [Moles/Vol] 98 mmol/L Normal 98-107 [facility] Comment on above: Performed By: #### C MP ####[facility] Yoqogeftjn1788 [place] [id number]. Airam Tripathi CO2 [Moles/Vol] 27.8 mmol/L Normal 21.0-32.0 [facility] Comment on above: Performed By: #### C MP ####[facility] Lzvukxkcaq0875 [place] [id number]. Airam Tripathi Creatinine [Mass/Vol] 1.82 mg/dL Critically high 0.55-1.02 [facility] Comment on above: Performed By: #### C MP ####[facility] Ceoiiillcc7406 [place] [id number]. Airam Tripathi EGFR-AF CYPRIOT 34 mL/min/1.73m2 Critically low >=60 [facility] Comment on above: Performed By: #### C MP ####[facility] Jywysqqmka5505 [place] [address]Dr. Airam Tripathi EGFR-NON AF CYPRIOT 28 mL/min/1.73m2 Critically low >=60 [facility] Comment on above: Performed By: #### C MP ####[facility] Hdznjetzny7014 [place] [address]Dr. Airam Tripathi Globulin (S) [Mass/Vol] 3.2 g/dL Normal [facility] Comment on above: Performed By: #### C MP ####[facility] Pvwdbqppme9343 [place] [address]Dr. Airam Tripathi Glucose [Mass/Vol] 78 mg/dL Normal 74-106 [facility] Comment on above: Performed By: #### C MP ####[facility] Oxmzutpayg1385 [place] [address]Dr. Airam Tripathi Potassium [Moles/Vol] 5.2 mmol/L Critically high 3.5-5.1 [facility] Comment on above: Performed By: #### C MP ####[facility] Xtggahbigy5360 [place] [address]Dr. Airam Tripathi Protein [Mass/Vol] 6.6 g/dL Normal 6.4-8.2 [facility] Comment on above: Performed By: #### C MP ####[facility] Ultcnskeqv6317 [place] [address]Dr. Airam Tripathi Sodium [Moles/Vol] 135 mmol/L Critically low 136-145 Th [facility] Comment on above: Performed By: #### C MP ####[facility] Zkkhrzjctd5820 [place] [address]Dr. Airam Tripathi Urea nitrogen [Mass/Vol] 51.0 mg/dL Critically high 7.0-18.0 [facility] Comment on above: Performed By: #### C MP ####[facility] Xbqnkuwymy5696 [place] [address]Dr. Airam Tripathi Urea nitrogen/Creatinine [Mass ratio] 28.0 mg/mg Normal [facility] Comment on above: Performed By: #### C MP ####[facility] Pimszbldqt3937 [place] [address]Dr. Airam Tripathi OSMOLALITYon 08-18-2022 Osmolality [Osmolality] 280 mosm/kg Normal 275-295 [facility] Comment on above: Performed By: #### O SMO ####[facility] Xatcgfaizz3151 [place] [id number]. Airam Tripathi CBC AUTO DIFFon 08-16-2022 BASO # 0.0 103/ul Normal 0.0-0.1 [facility] Comment on above: Performed By: #### C BC ####[facility] Onghyxqguh[address] [place], [place] [address]Dr. Selenaneil Tripathi Basophils/100 WBC (Bld) 0.2 % Normal 0.2-2.0 [facility] Comment on above: Performed By: #### C BC ####[facility] Asabywvakf20[address] [place], [place] [address]Dr. Selenaneil Tripathi EO # 0.2 103/ul Normal 0.0-0.7 [facility] Comment on above: Performed By: #### C BC ####[facility] Zwswfdiafw166[address] [place], [place] [address]Dr. Airam Tripathi Eosinophils/100 WBC (Bld) 2.4 % Normal 0.9-7.0 [facility] Comment on above: Performed By: #### C BC ####[facility] Clvyevggpi69[address] [place], [place] [address]Dr. Selenaneil Tripathi Erythrocyte distribution width (RBC) [Ratio] 14.2 % Normal 11.0-15.0 [facility] Comment on above: Performed By: #### C BC ####[facility] Azlgzdblov[address] [place], [place] [address]Dr. Selenaneil Tripathi Hematocrit (Bld) [Volume fraction] 30.1 % Critically low 36.0-48.0 [facility] Comment on above: Performed By: #### C BC ####[facility] Jgmufbcylb5[address] [place], [place] [address]Dr. Airam Tripathi Hemoglobin (Bld) [Mass/Vol] 9.2 g/dL Critically low 12.0-16.0 [facility] Comment on above: Performed By: #### C BC ####[facility] Ljsixuiere20[address] [place], [place] [address]Dr. Airam Tripathi IG # 0.04 10e3/ul Critically high 0.00-0.03 [facility] Comment on above: Performed By: #### C BC ####[facility] Qqfbffcwrc7592 [place] [address]Dr. Airam Tripathi IG % 0.4 % Normal 0.0-0.5 [facility] Comment on above: Performed By: #### C BC ####[facility] Qvhuqzxcdj6815 [place] [id number]. Airam Tripathi LYMPH # 0.9 103/ul Critically low 1.2-3.8 [facility] Comment on above: Performed By: #### C BC ####[facility] Ihogsrblhb7368 [place] [address]Dr. Airam Deuce Lymphocytes/100 WBC (Bld) 9.3 % Critically low 20.5-60.0 [facility] Comment on above: Performed By: #### C BC ####[facility] Ccamavmqpv[address] [place], [place] [address]Dr. Selenaneil Tripathi MANUAL DIFF REQ NO Normal [facility] Comment on above: Performed By: #### C BC ####[facility] Wiuqmhjxta[address] [place], [place] [address]Dr. Airam Tripathi MCH (RBC) [Entitic mass] 27.7 pg Normal 26.7-34.0 [facility] Comment on above: Performed By: #### C BC ####[facility] Srihqhektq1549 [place] [address]Dr. Airam Tripathi MCHC (RBC) [Mass/Vol] 30.6 g/dL Normal 29.9-35.2 [facility] Comment on above: Performed By: #### C BC ####[facility] Llhndcwfji13[address] [place], [place] [address]Dr. Airam Tripathi MCV (RBC) [Entitic vol] 90.7 fL Normal 81.0-99.0 [facility] Comment on above: Performed By: #### C BC ####[facility] Xfmwegoqdd8[address] [place], [place] [address]Dr. Airam Deuce MONO # 0.5 103/ul Normal 0.3-0.8 [facility] Comment on above: Performed By: #### C BC ####[facility] Tsjgvywheu7557 [place] [id number]. Airam Tripathi Monocytes/100 WBC (Bld) 5.3 % Normal 1.7-12.0 [facility] Comment on above: Performed By: #### C BC ####[facility] Hepilbwjze6584 [place] [address]Dr. Airam Tripathi NEUT # 7.7 103/ul Critically high 1.4-6.5 [facility] Comment on above: Performed By: #### C BC ####[facility] Daphbntpzj2386 [place] [address]Dr. Airam Tripathi Neutrophils/100 WBC (Bld) 82.4 % Critically high 43.0-75.0 [facility] Comment on above: Performed By: #### C BC ####[facility] Ljvvnklgdr0215 [place] [address]Dr. Airam Tripathi Platelet mean volume (Bld) [Entitic vol] 9.8 fL Normal 9.5-13.5 [facility] Comment on above: Performed By: #### C BC ####[facility] Ktjhbalbcd3480 [place] [address]Dr. Airam Tripathi PLT 285 103/ul Normal 150-450 [facility] Comment on above: Performed By: #### C BC ####[facility] Ujzcjhdfcm8241 [place] [address]Dr. Airam Tripathi RBC 3.32 106/ul Critically low 4.20-5.40 [facility] Comment on above: Performed By: #### C BC ####[facility] Lmxjdcvxyp5719 [place] [id number]. Airam Tripathi WBC 9.4 103/ul Normal 4.0-11.0 [facility] Comment on above: Performed By: #### C BC ####[facility] Gawklhhnnu8286 [place] [address]Dr. Airam Tripathi MRI WRIST RT WO CONon 2022 MRI WRIST RT WO CON Normal [facility] PROF 14(COMP METB)on 02-21-2 023 Albumin [Mass/Vol] 3.1 g/dL Critically low 3.4-5.0 [facility] Comment on above: Performed By: #### C MP ####[facility] Qirxoovxzf9294 [place] [address]Dr. Airam Tripathi Albumin/Globulin [Mass ratio] 0.9 {ratio} Normal [facility] Comment on above: Performed By: #### C MP ####[facility] Odmejwuans1584 [place] [address]Dr. Airam Tripathi ALP [Catalytic activity/Vol] 162 U/L Critically high 46-116 [facility] Comment on above: Performed By: #### C MP ####[facility] Jtcjsltihm8[address] [place], [place] [address]Dr. Airam Tripathi ALT [Catalytic activity/Vol] 19 U/L Normal 14-59 [facility] Comment on above: Performed By: #### C MP ####[facility] Ikisvsxxxu584[address] [place], [place] [address]Dr. Airam Tripathi Anion gap [Moles/Vol] 13.0 mmol/L Normal [facility] Comment on above: Performed By: #### C MP ####[facility] Odmifmyacg8115[address] [place], [place] [address]Dr. Airam Tripathi AST [Catalytic activity/Vol] 21 U/L Normal 15-37 [facility] Comment on above: Performed By: #### C MP ####[facility] Jxxcwxeouv7[address] [place], [place] [address]Dr. Airam Tripathi Bilirubin [Mass/Vol] 0.3 mg/dL Normal 0.2-1.0 [facility] Comment on above: Performed By: #### C MP ####[facility] Fdgrtgqcor40[address] [place], [place] [address]Dr. Airam Tripathi Calcium [Mass/Vol] 8.4 mg/dL Critically low 8.5-10.1 [facility] Comment on above: Performed By: #### C MP ####[facility] Avkbqbwehh923[address] [place], [place] [address]Dr. Airam Tripathi Chloride [Moles/Vol] 103 mmol/L Normal 98-107 [facility] Comment on above: Performed By: #### C MP ####[facility] Qfdbjgnwib9350 [place] [address]Dr. Airam Tripathi CO2 [Moles/Vol] 23.3 mmol/L Normal 21.0-32.0 [facility] Comment on above: Performed By: #### C MP ####[facility] Sinlfgdnmd7288 [place] [address]Dr. Airam Tripathi Creatinine [Mass/Vol] 1.02 mg/dL Normal 0.55-1.02 [facility] Comment on above: Performed By: #### C MP ####[facility] Cortqgnviy9[address] [place], [place] [address]Dr. Airam Tripathi EGFR-AF CYPRIOT >60 Normal >=60 [facility] Comment on above: Performed By: #### C MP ####[facility] Tiopohihxr78[address] [place], [place] [address]Dr. Airam Deuce EGFR-NON AF CYPRIOT 55 mL/min/1.73m2 Critically low >=60 [facility] Comment on above: Performed By: #### C MP ####[facility] Rhtawpxqlm7[address] [place], [place] [address]Dr. Airam Deuce Globulin (S) [Mass/Vol] 3.4 g/dL Normal [facility] Comment on above: Performed By: #### C MP ####[facility] Sqvgtacrrv0766 [place] [address]Dr. Airam Deuce Glucose [Mass/Vol] 88 mg/dL Normal 74-106 [facility] Comment on above: Performed By: #### C MP ####[facility] Dpnxdliysc69[address] [place], [place] [address]Dr. Airam Deuce Potassium [Moles/Vol] 4.3 mmol/L Normal 3.5-5.1 [facility] Comment on above: Performed By: #### C MP ####[facility] Kfjdtxtbbf[address] [place], [place] [address]Dr. Airam Tripathi Protein [Mass/Vol] 6.5 g/dL Normal 6.4-8.2 [facility] Comment on above: Performed By: #### C MP ####[facility] Vlcixrkbhk7671 [place] [id number]. Airam Tripathi Sodium [Moles/Vol] 135 mmol/L Critically low 136-145 Th [facility] Comment on above: Performed By: #### C MP ####[facility] Mbzqisvuzv1899 [place] [id number]. Airam Tripathi Urea nitrogen [Mass/Vol] 27.0 mg/dL Critically high 7.0-18.0 [facility] Comment on above: Performed By: #### C MP ####[facility] Irqpyumxkv0959 [place] [id number]. Airam Tripathi Urea nitrogen/Creatinine [Mass ratio] 26.5 mg/mg Normal [facility] Comment on above: Performed By: #### C MP ####[facility] Igibjedjzy3332 [place] [address]Dr. Airam Tripathi CT HEAD WO CONon 08-06-2022 CT HEAD WO CON Normal [facility] CT LSPINE WO CONon 3 CT LSPINE WO CON Normal [facility] XR HAND RT MIN 3Von 08-06-19 23 XR HAND RT MIN 3V Normal [facility] XR KNEE LT 4V or >on 023 XR KNEE LT 4V or > Normal [facility] XR WRIST RT MIN 3 Von 2022 XR WRIST RT MIN 3 V Normal [facility] OSMOLALITYon 08-05-2022 Osmolality [Osmolality] 282 mosm/kg Normal 275-295 [facility] Comment on above: Performed By: #### O SMO ####[facility] Kqrwjgcarh2382 [place] [id number]. Airam Tripathi CBC AUTO DIFFon 08-03-2022 BASO # 0.0 103/ul Normal 0.0-0.1 [facility] Comment on above: Performed By: #### C BC ####[facility] Bgdpeqbivs4845 [place] [id number]. Airam Tripathi Basophils/100 WBC (Bld) 0.5 % Normal 0.2-2.0 [facility] Comment on above: Performed By: #### C BC ####[facility] Thttqjkbfo5009 [place] [address]DrKianna Tripathi EO # 0.5 103/ul Normal 0.0-0.7 [facility] Comment on above: Performed By: #### C BC ####[facility] Qtgegibmri83[address] [place], [place] [address]DrKianna Tripathi Eosinophils/100 WBC (Bld) 5.2 % Normal 0.9-7.0 [facility] Comment on above: Performed By: #### C BC ####[facility] Qqbljzlvhn39[address] [place], [place] [address]Dr. Airam Tripathi Erythrocyte distribution width (RBC) [Ratio] 14.3 % Normal 11.0-15.0 [facility] Comment on above: Performed By: #### C BC ####[facility] Lwsrepkpsj9[address] [place], [place] [address]DrKianna Tripathi Hematocrit (Bld) [Volume fraction] 31.4 % Critically low 36.0-48.0 [facility] Comment on above: Performed By: #### C BC ####[facility] Vkoqjtdrcr254[address] [place], [place] [address]DrKianna Tripathi Hemoglobin (Bld) [Mass/Vol] 9.5 g/dL Critically low 12.0-16.0 [facility] Comment on above: Performed By: #### C BC ####[facility] Jmatwieukp[address] [place], [place] [address]DrKianna Tripathi IG # 0.05 10e3/ul Critically high 0.00-0.03 [facility] Comment on above: Performed By: #### C BC ####[facility] Agywbdklgt29[address] [place], [place] [address]DrKianna Tripathi IG % 0.6 % Critically high 0.0-0.5 [facility] Comment on above: Performed By: #### C BC ####[facility] Guavxpozps7[address] [place], [place] [address]DrKianna Tripathi LYMPH # 1.5 103/ul Normal 1.2-3.8 [facility] Comment on above: Performed By: #### C BC ####[facility] Oclavmgkdu9716 [place] [address]DrKianna Tripathi Lymphocytes/100 WBC (Bld) 17.6 % Critically low 20.5-60.0 [facility] Comment on above: Performed By: #### C BC ####[facility] Tzosurpili4491 [place] [address]DrKianna Tripathi MANUAL DIFF REQ NO Normal [facility] Comment on above: Performed By: #### C BC ####[facility] Wnivzhlskt9191 [place] [address]DrKianna Tripathi MCH (RBC) [Entitic mass] 29.0 pg Normal 26.7-34.0 [facility] Comment on above: Performed By: #### C BC ####[facility] Mipnkikglh685[address] [place], [place] [address]Dr. Airam Tripathi MCHC (RBC) [Mass/Vol] 30.3 g/dL Normal 29.9-35.2 [facility] Comment on above: Performed By: #### C BC ####[facility] Tmhihzmulo[address] [place], [place] [address]DrKianna Tripathi MCV (RBC) [Entitic vol] 95.7 fL Normal 81.0-99.0 [facility] Comment on above: Performed By: #### C BC ####[facility] Mqqbtcffbj20[address] [place], [place] [address]Dr. Airam Tripathi MONO # 0.7 103/ul Normal 0.3-0.8 [facility] Comment on above: Performed By: #### C BC ####[facility] Yufyddzojk50[address] [place], [place] [address]Dr. Airam Tripathi Monocytes/100 WBC (Bld) 8.5 % Normal 1.7-12.0 [facility] Comment on above: Performed By: #### C BC ####[facility] Ylgmagxkgu25[address] [place], [place] [address]DrKianna Tripathi NEUT # 5.8 103/ul Normal 1.4-6.5 [facility] Comment on above: Performed By: #### C BC ####[facility] Fzlzxysbfy9393 [place] [address]Dr. Airam Tripathi Neutrophils/100 WBC (Bld) 67.6 % Normal 43.0-75.0 [facility] Comment on above: Performed By: #### C BC ####[facility] Ddeqrghktv0182 [place] [address]Dr. Airam Tripathi Platelet mean volume (Bld) [Entitic vol] 9.5 fL Normal 9.5-13.5 [facility] Comment on above: Performed By: #### C BC ####[facility] Kyiqeantbp311[address] [place], [place] [address]Dr. Airam Tripathi PLT 292 103/ul Normal 150-450 [facility] Comment on above: Performed By: #### C BC ####[facility] Xhyujigxhb8465 [place] [address]Dr. Airam Tripathi RBC 3.28 106/ul Critically low 4.20-5.40 [facility] Comment on above: Performed By: #### C BC ####[facility] Ynvshypljn12[address] [place], [place] [address]Dr. Airam Tripathi WBC 8.6 103/ul Normal 4.0-11.0 [facility] Comment on above: Performed By: #### C BC ####[facility] Rlkgkdbsqo5[address] [place], [place] [address]DrKianna Tripathi PROF 14(COMP METB)on 023 Albumin [Mass/Vol] 3.0 g/dL Critically low 3.4-5.0 [facility] Comment on above: Performed By: #### C MP ####[facility] Ylvbmmmlzt[address] [place], [place] [address]DrKianna Tripathi Albumin/Globulin [Mass ratio] 0.9 {ratio} Normal [facility] Comment on above: Performed By: #### C MP ####[facility] Tiulurvfcf4716 [place] [address]Dr. Airam Tripathi ALP [Catalytic activity/Vol] 184 U/L Critically high 46-116 [facility] Comment on above: Performed By: #### C MP ####[facility] Nmaraqaqlc7291 [place] [address]Dr. Ariam Tripathi ALT [Catalytic activity/Vol] 18 U/L Normal 14-59 [facility] Comment on above: Performed By: #### C MP ####[facility] Tdewzoayxc2181 [place] [id number]. Airam Tripathi Anion gap [Moles/Vol] 11.2 mmol/L Normal Th e [facility] Comment on above: Performed By: #### C MP ####[facility] Nliiflcuvq8857 [place] [address]Dr. Airam Tripathi AST [Catalytic activity/Vol] 19 U/L Normal 15-37 [facility] Comment on above: Performed By: #### C MP ####[facility] Ksjuykeiyx7058 [place] [address]Dr. Airam Deuce Bilirubin [Mass/Vol] 0.3 mg/dL Normal 0.2-1.0 [facility] Comment on above: Performed By: #### C MP ####[facility] Fjrzqebehk[address] [place], [place] [address]Dr. Airam Deuce Calcium [Mass/Vol] 8.8 mg/dL Normal 8.5-10.1 [facility] Comment on above: Performed By: #### C MP ####[facility] Lintqfbfjk3112 [place] [address]Dr. Airam Tripathi Chloride [Moles/Vol] 101 mmol/L Normal 98-107 [facility] Comment on above: Performed By: #### C MP ####[facility] Xocuoyfdqe3102 [place] [address]Dr. Airam Tripathi CO2 [Moles/Vol] 25.4 mmol/L Normal 21.0-32.0 [facility] Comment on above: Performed By: #### C MP ####[facility] Boyaelqtnj1915 [place] [id number]. Airam Deuce Creatinine [Mass/Vol] 1.05 mg/dL Critically high 0.55-1.02 [facility] Comment on above: Performed By: #### C MP ####[facility] Vhdzwmyxzo6856 [place] [address]Dr. Airam Deuce EGFR-AF CYPRIOT >60 Normal >=60 [facility] Comment on above: Performed By: #### C MP ####[facility] Srmhgiytoj1445 [place] [address]Dr. Selenaneil Deuce EGFR-NON AF CYPRIOT 53 mL/min/1.73m2 Critically low >=60 [facility] Comment on above: Performed By: #### C MP ####[facility] Mxjoremrfc1385 [place] [id number]. Airam Tripathi Globulin (S) [Mass/Vol] 3.4 g/dL Normal [facility] Comment on above: Performed By: #### C MP ####[facility] Avxawjsrmf[address] [place] [address]Dr. Airam Tripathi Glucose [Mass/Vol] 78 mg/dL Normal 74-106 [facility] Comment on above: Performed By: #### C MP ####[facility] Mhumkmqhtw8795 [place] [id number]. Airam Tripathi Potassium [Moles/Vol] 4.6 mmol/L Normal 3.5-5.1 [facility] Comment on above: Performed By: #### C MP ####[facility] Vhwgyhlclh7830 [place] [id number]. Airam Tripathi Protein [Mass/Vol] 6.4 g/dL Normal 6.4-8.2 The [facility] Comment on above: Performed By: #### C MP ####[facility] Uzrvvldjxx5770 [place] [id number]. Airam Tripathi Sodium [Moles/Vol] 133 mmol/L Critically low 136-145 [facility] Comment on above: Performed By: #### C MP ####[facility] Rdrtptolhh1324 [place] [id number]. Airam Tripathi Urea nitrogen [Mass/Vol] 26.0 mg/dL Critically high 7.0-18.0 [facility] Comment on above: Performed By: #### C MP ####[facility] Edabnqepfk6[address] [place] [address]Dr. Airam Tripathi Urea nitrogen/Creatinine [Mass ratio] 24.8 mg/mg Normal The [facility] Comment on above: Performed By: #### C MP ####[facility] Ciiodqyxcm[address] [place], [place] [address]Dr. Airam Tripathi OSMOLALITYon 07-29-2022 Osmolality [Osmolality] 287 mosm/kg Normal 275-295 [facility] Comment on above: Performed By: #### O SMO ####[facility] Bhvecogkkj34[address] [place], [place] [address]Dr. Airam Deuce CBC AUTO DIFFon 07-27-2022 BASO # 0.0 103/ul Normal 0.0-0.1 [facility] Comment on above: Performed By: #### C BC ####[facility] Jhtisxgsnp92[address] [place], [place] [address]Dr. Selenaneil Tripathi Basophils/100 WBC (Bld) 0.4 % Normal 0.2-2.0 [facility] Comment on above: Performed By: #### C BC ####[facility] Atpjlhayio[address] [place], [place] [address]Dr. Airam Deuce EO # 0.2 103/ul Normal 0.0-0.7 The [facility] Comment on above: Performed By: #### C BC ####[facility] Kaknpiavkx[address] [place], [place] [address]Dr. Selenaneil Tripathi Eosinophils/100 WBC (Bld) 2.6 % Normal 0.9-7.0 The [facility] Comment on above: Performed By: #### C BC ####[facility] Lwjducucdu8[address] [place], [place] [address]Dr. Airam Deuce Erythrocyte distribution width (RBC) [Ratio] 14.2 % Normal 11.0-15.0 The [facility] Comment on above: Performed By: #### C BC ####[facility] Nxrzfxlxsm9[address] [place], [place] [address]Dr. Airam Tripathi Hematocrit (Bld) [Volume fraction] 31.3 % Critically low 36.0-48.0 [facility] Comment on above: Performed By: #### C BC ####[facility] Dmtkqhrvfl1912 [place] [address]DrKianna Airam Deuce Hemoglobin (Bld) [Mass/Vol] 9.3 g/dL Critically low 12.0-16.0 [facility] Comment on above: Performed By: #### C BC ####[facility] Lhxfoajaoq7858 [place] [address]DrKianna Tripathi IG # 0.05 10e3/ul Critically high 0.00-0.03 [facility] Comment on above: Performed By: #### C BC ####[facility] Ovlgrewgfo00[address] [place], [place] [address]DrKianna Tripathi IG % 0.7 % Critically high 0.0-0.5 [facility] Comment on above: Performed By: #### C BC ####[facility] Jrattpbmlw69[address] [place], [place] [address]DrKianna Tripathi LYMPH # 1.0 103/ul Critically low 1.2-3.8 [facility] Comment on above: Performed By: #### C BC ####[facility] Qekxqvcago74[address] [place], [place] [address]DrKianna Tripathi Lymphocytes/100 WBC (Bld) 13.4 % Critically low 20.5-60.0 [facility] Comment on above: Performed By: #### C BC ####[facility] Vbgcemkfga80[address] [place], [place] [address]DrKianna Tripathi MANUAL DIFF REQ NO Normal [facility] Comment on above: Performed By: #### C BC ####[facility] Cyxhmlxgad5946 [place] [address]DrKianna Tripathi MCH (RBC) [Entitic mass] 28.8 pg Normal 26.7-34.0 [facility] Comment on above: Performed By: #### C BC ####[facility] Wftjtycjyw3492 [place] [address]DrKianna Tripathi MCHC (RBC) [Mass/Vol] 29.7 g/dL Critically low 29.9-35.2 The [facility] Comment on above: Performed By: #### C BC ####[facility] Rtyrublbuz9147 [place] [address]DrKianna Airam Deuce MCV (RBC) [Entitic vol] 96.9 fL Normal 81.0-99.0 The [facility] Comment on above: Performed By: #### C BC ####[facility] Inqvjuovyy8437 [place] [address]DrKianna Tripathi MONO # 0.5 103/ul Normal 0.3-0.8 The [facility] Comment on above: Performed By: #### C BC ####[facility] Jkvhkilkez4837 [place] [address]Dr. Airam Tripathi Monocytes/100 WBC (Bld) 6.3 % Normal 1.7-12.0 The [facility] Comment on above: Performed By: #### C BC ####[facility] Syafojjode[address] [place], [place] [address]Dr. Airam Tripathi NEUT # 5.8 103/ul Normal 1.4-6.5 The [facility] Comment on above: Performed By: #### C BC ####[facility] Dtovizswub[address] [place], [place] [address]Dr. Airam Tripathi Neutrophils/100 WBC (Bld) 76.6 % Critically high 43.0-75.0 The [facility] Comment on above: Performed By: #### C BC ####[facility] Aqxtjijher[address] [place], [place] [address]Dr. Airam Tripathi Platelet mean volume (Bld) [Entitic vol] 10.3 fL Normal 9.5-13.5 The [facility] Comment on above: Performed By: #### C BC ####[facility] Gvhtvrqsea26[address] [place], [place] [address]Dr. Airam Tripathi PLT 265 103/ul Normal 150-450 The [facility] Comment on above: Performed By: #### C BC ####[facility] Luhsaxaysj9736 [place] [id number] Tripathi RBC 3.23 106/ul Critically low 4.20-5.40 [facility] Comment on above: Performed By: #### C BC ####[facility] Biiyljgato8927 [place] [address]Dr. Airam Tripathi WBC 7.6 103/ul Normal 4.0-11.0 [facility] Comment on above: Performed By: #### C BC ####[facility] Edadyooete[address] [place] [address]DrKianna Tripathi PROF 14(COMP METB)on 023 Albumin [Mass/Vol] 2.9 g/dL Critically low 3.4-5.0 [facility] Comment on above: Performed By: #### C MP ####[facility] Vxklpoqcek5113 [place] [address]Dr. Airam Tripathi Albumin/Globulin [Mass ratio] 0.8 {ratio} Normal [facility] Comment on above: Performed By: #### C MP ####[facility] Fyonqnmwln[address] [place], [place] [address]Dr. Airam Tripathi ALP [Catalytic activity/Vol] 175 U/L Critically high 46-116 [facility] Comment on above: Performed By: #### C MP ####[facility] Jwbomgbzah32[address] [place], [place] [address]Dr. Airam Tripathi ALT [Catalytic activity/Vol] 24 U/L Normal 14-59 [facility] Comment on above: Performed By: #### C MP ####[facility] Qwyimjjeor9278 [place] [address]Dr. Airam Tripathi Anion gap [Moles/Vol] 14.3 mmol/L Normal Th [facility] Comment on above: Performed By: #### C MP ####[facility] Quteacfyzy1391 [place] [address]Dr. Airam Tripathi AST [Catalytic activity/Vol] 25 U/L Normal 15-37 [facility] Comment on above: Performed By: #### C MP ####[facility] Cpnfzhjfqc8562 [place] [address]Dr. Airam Tripathi Bilirubin [Mass/Vol] 0.2 mg/dL Normal 0.2-1.0 The [facility] Comment on above: Performed By: #### C MP ####[facility] Mxvpetkcrj1436 [place] [address]Dr. Airam Tripathi Calcium [Mass/Vol] 8.6 mg/dL Normal 8.5-10.1 The [facility] Comment on above: Performed By: #### C MP ####[facility] Atlyhzgukz2079 [place] [id number]. Airam Tripathi Chloride [Moles/Vol] 102 mmol/L Normal 98-107 The [facility] Comment on above: Performed By: #### C MP ####[facility] Eifibcyazs2538 [place] [address]Dr. Airam Tripathi CO2 [Moles/Vol] 23.7 mmol/L Normal 21.0-32.0 The [facility] Comment on above: Performed By: #### C MP ####[facility] Rltmlbtfxp[address] [place], [place] [address]Dr. Airam Tripathi Creatinine [Mass/Vol] 1.29 mg/dL Critically high 0.55-1.02 [facility] Comment on above: Performed By: #### C MP ####[facility] Aaiflrgunt7[address] [place], [place] [address]Dr. Airam Tripathi EGFR-AF CYPRIOT 51 mL/min/1.73m2 Critically low >=60 The [facility] Comment on above: Performed By: #### C MP ####[facility] Reijytjnbs[address] [place], [place] [address]Dr. Airam Deuce EGFR-NON AF CYPRIOT 42 mL/min/1.73m2 Critically low >=60 The [facility] Comment on above: Performed By: #### C MP ####[facility] Monpqeugqg[address] [place], [place] [address]Dr. Airam Deuce Globulin (S) [Mass/Vol] 3.6 g/dL Normal The [facility] Comment on above: Performed By: #### C MP ####[facility] Islxoxrbjh1437 [place] [id number]. Airam Deuce Glucose [Mass/Vol] 84 mg/dL Normal 74-106 The [facility] Comment on above: Performed By: #### C MP ####[facility] Sdwxoijqvc0433 [place] [address]Dr. Selenaneil Deuce Potassium [Moles/Vol] 5.0 mmol/L Normal 3.5-5.1 [facility] Comment on above: Performed By: #### C MP ####[facility] Xznaqqycaf[address] [place], [place] [address]Dr. Airam Tripathi Protein [Mass/Vol] 6.5 g/dL Normal 6.4-8.2 [facility] Comment on above: Performed By: #### C MP ####[facility] Hcgrqsldqk19[address] [place], [place] [address]Dr. Airam Tripathi Sodium [Moles/Vol] 135 mmol/L Critically low 136-145 Th [facility] Comment on above: Performed By: #### C MP ####[facility] Bpcexuabvk6[address] [place], [place] [address]Dr. Airam Tripathi Urea nitrogen [Mass/Vol] 28.0 mg/dL Critically high 7.0-18.0 [facility] Comment on above: Performed By: #### C MP ####[facility] Gnvhagjxib6[address] [place], [place] [address]Dr. Airam Tripathi Urea nitrogen/Creatinine [Mass ratio] 21.7 mg/mg Normal [facility] Comment on above: Performed By: #### C MP ####[facility] Tlbmzeddee065[address] [place], [place] [address]Dr. Airam Tripathi XR LSPINE MIN 4 VIEWSon 02-0 XR LSPINE MIN 4 VIEWS Normal [facility] OSMOLALITYon 07-24-2022 Osmolality [Osmolality] 279 mosm/kg Normal 275-295 [facility] Comment on above: Performed By: #### O SMO ####[facility] Edqmepspnk45[address] [place], [place] [address]Dr. Airam Tripathi CBC AUTO DIFFon 07-21-2022 BASO # 0.0 103/ul Normal 0.0-0.1 [facility] Comment on above: Performed By: #### C BC ####[facility] Honqylyukj0226 [place] [id number]. Airam Tripathi Basophils/100 WBC (Bld) 0.4 % Normal 0.2-2.0 The [facility] Comment on above: Performed By: #### C BC ####[facility] Vvmtwqefqd6687 [place] [address]Dr. Airam Tripathi EO # 0.2 103/ul Normal 0.0-0.7 The [facility] Comment on above: Performed By: #### C BC ####[facility] Hedaaslsly[address] [place], [place] [address]Dr. Airam Tripathi Eosinophils/100 WBC (Bld) 2.3 % Normal 0.9-7.0 The [facility] Comment on above: Performed By: #### C BC ####[facility] Pmtnmawvkv[address] [place], [place] [address]Dr. Airam Tripathi Erythrocyte distribution width (RBC) [Ratio] 13.6 % Normal 11.0-15.0 The [facility] Comment on above: Performed By: #### C BC ####[facility] Moiooazjrv5[address] [place], [place] [address]Dr. Airam Tripathi Hematocrit (Bld) [Volume fraction] 32.6 % Critically low 36.0-48.0 The [facility] Comment on above: Performed By: #### C BC ####[facility] Bzmpnoaqlc[address] [place], [place] [address]Dr. Airam Tripathi Hemoglobin (Bld) [Mass/Vol] 9.5 g/dL Critically low 12.0-16.0 The [facility] Comment on above: Performed By: #### C BC ####[facility] Xnxoxlsjrl7152 [place] [address]Dr. Airam Tripathi IG # 0.03 10e3/ul Normal 0.00-0.03 The [facility] Comment on above: Performed By: #### C BC ####[facility] Wqanknxcfm[address] [place], [place] [address]Dr. Airam Tripathi IG % 0.4 % Normal 0.0-0.5 The [facility] Comment on above: Performed By: #### C BC ####[facility] Zxqvslagei0889 [place] [address]Dr. Airam Tripathi LYMPH # 1.4 103/ul Normal 1.2-3.8 The [facility] Comment on above: Performed By: #### C BC ####[facility] Wbqlhmlreb3227 [place] [address]Dr. Airam Tripathi Lymphocytes/100 WBC (Bld) 18.2 % Critically low 20.5-60.0 The [facility] Comment on above: Performed By: #### C BC ####[facility] Vuovppdhak7921 [place] [address]Dr. Airam Deuce MANUAL DIFF REQ NO Normal The [facility] Comment on above: Performed By: #### C BC ####[facility] Qflxrkzoic6461 [place] [address]Dr. Airam Deuce MCH (RBC) [Entitic mass] 29.5 pg Normal 26.7-34.0 The [facility] Comment on above: Performed By: #### C BC ####[facility] Hjpgnhkkev1598 [place] [id number]. Airam Tripathi MCHC (RBC) [Mass/Vol] 29.1 g/dL Critically low 29.9-35.2 The [facility] Comment on above: Performed By: #### C BC ####[facility] Vevranjkub0269 [place] [address]Dr. Airam Deuce MCV (RBC) [Entitic vol] 101.2 fL Critically high 81.0-99.0 The [facility] Comment on above: Performed By: #### C BC ####[facility] Rrdxtgqeri7259 [place] [address]Dr. Airam Deuce MONO # 0.6 103/ul Normal 0.3-0.8 The [facility] Comment on above: Performed By: #### C BC ####[facility] Ehozbcgvfa5446 [place] [address]Dr. Airam Deuce Monocytes/100 WBC (Bld) 7.9 % Normal 1.7-12.0 The [facility] Comment on above: Performed By: #### C BC ####[facility] Vwaojtrxhs5672 [place] [address]Dr. Airam Tripathi NEUT # 5.5 103/ul Normal 1.4-6.5 The [facility] Comment on above: Performed By: #### C BC ####[facility] Ljdcwjifbv1202 [place] [address]Dr. Airam Tripathi Neutrophils/100 WBC (Bld) 70.8 % Normal 43.0-75.0 The [facility] Comment on above: Performed By: #### C BC ####[facility] Mtxzrnwzqk6124 [place] [phone]. Airam Tripathi Platelet mean volume (Bld) [Entitic vol] 9.6 fL Normal 9.5-13.5 [facility] Comment on above: Performed By: #### C BC ####[facility] Sbvadpxtlg1523 [place] [address]Dr. Airam Tripathi PLT 265 103/ul Normal 150-450 The [facility] Comment on above: Performed By: #### C BC ####[facility] Lgohzdzwql0883 [place] [address]Dr. Airam Tripathi RBC 3.22 106/ul Critically low 4.20-5.40 [facility] Comment on above: Performed By: #### C BC ####[facility] Hyurivlbzg7796 [place] [address]Dr. Airam Tripathi WBC 7.8 103/ul Normal 4.0-11.0 [facility] Comment on above: Performed By: #### C BC ####[facility] Oqrrhyupfa3792 [place] [address]Dr. Selenaneil Tripathi PROF 14(COMP METB)on 023 Albumin [Mass/Vol] 2.9 g/dL Critically low 3.4-5.0 [facility] Comment on above: Performed By: #### C MP ####[facility] Xrtuxwehqj0249 [place] [phone]. Airam Deuce Albumin/Globulin [Mass ratio] 0.9 {ratio} Normal [facility] Comment on above: Performed By: #### C MP ####[facility] Lpcfeisxbs3900 [place] [id number]. Airam Tripathi ALP [Catalytic activity/Vol] 176 U/L Critically high 46-116 The [facility] Comment on above: Performed By: #### C MP ####[facility] Xojnrovgzi3085 [place] [address]Dr. Airam Tripathi ALT [Catalytic activity/Vol] 19 U/L Normal 14-59 The [facility] Comment on above: Performed By: #### C MP ####[facility] Ssyewnvnuw0679 [place] [address]Dr. Airam Tripathi Anion gap [Moles/Vol] 12.6 mmol/L Normal Th e [facility] Comment on above: Performed By: #### C MP ####[facility] Achlfwjbok[address] [place], [place] [address]Dr. Airam Tripathi AST [Catalytic activity/Vol] 25 U/L Normal 15-37 The [facility] Comment on above: Performed By: #### C MP ####[facility] Rjbwevuboi54[address] [place], [place] [address]Dr. Airam Tripathi Bilirubin [Mass/Vol] 0.2 mg/dL Normal 0.2-1.0 The [facility] Comment on above: Performed By: #### C MP ####[facility] Sztkubvgqf258[address] [place], [place] [address]Dr. Airam Tripathi Calcium [Mass/Vol] 8.5 mg/dL Normal 8.5-10.1 The [facility] Comment on above: Performed By: #### C MP ####[facility] Itbxmfnsty1295 [place] [address]Dr. Airam Tripathi Chloride [Moles/Vol] 101 mmol/L Normal 98-107 The [facility] Comment on above: Performed By: #### C MP ####[facility] Brpjlykqeh5331 [place] [address]Dr. Airam Tripathi CO2 [Moles/Vol] 25.9 mmol/L Normal 21.0-32.0 The [facility] Comment on above: Performed By: #### C MP ####[facility] Zziyapruez8233 [place] [address]Dr. Airam Tripathi Creatinine [Mass/Vol] 1.11 mg/dL Critically high 0.55-1.02 [facility] Comment on above: Performed By: #### C MP ####[facility] Dzgzxipaxn1711 [place] [address]Dr. Airam Deuce EGFR-AF CYPRIOT >60 Normal >=60 [facility] Comment on above: Performed By: #### C MP ####[facility] Zsvirrfbga5278 [place] [address]Dr. Selenaneil Deuce EGFR-NON AF CYPRIOT 50 mL/min/1.73m2 Critically low >=60 [facility] Comment on above: Performed By: #### C MP ####[facility] Iyfrziwkqt9[address] [place], [place] [address]Dr. Airam Tripathi Globulin (S) [Mass/Vol] 3.2 g/dL Normal [facility] Comment on above: Performed By: #### C MP ####[facility] Fojqdieccu480[address] [place], [place] [address]Dr. Airam Tripathi Glucose [Mass/Vol] 80 mg/dL Normal 74-106 [facility] Comment on above: Performed By: #### C MP ####[facility] Hnkmtupjxq24[address] [place], [place] [address]Dr. Airam Tripathi Potassium [Moles/Vol] 3.5 mmol/L Normal 3.5-5.1 [facility] Comment on above: Performed By: #### C MP ####[facility] Wsyfwriong775[address] [place], [place] [address]Dr. Airam Tripathi Protein [Mass/Vol] 6.1 g/dL Critically low 6.4-8.2 Th e [facility] Comment on above: Performed By: #### C MP ####[facility] Zwhdmrwslk419[address] [place], [place] [address]Dr. Airam Tripathi Sodium [Moles/Vol] 136 mmol/L Normal 136-145 The [facility] Comment on above: Performed By: #### C MP ####[facility] Vlqatvrsfn64[address] [place], [place] [address]Dr. Airam Tripathi Urea nitrogen [Mass/Vol] 31.0 mg/dL Critically high 7.0-18.0 The [facility] Comment on above: Performed By: #### C MP ####[facility] Nmnxrcbmsk9[address] [place], [place] [address]Dr. Airam Tripathi Urea nitrogen/Creatinine [Mass ratio] 27.9 mg/mg Normal The [facility] Comment on above: Performed By: #### C MP ####[facility] Lakmiitufe6[address] [place], [place] [address]Dr. Airam Tripathi OSMOLALITYon 07-19-2022 Osmolality [Osmolality] 285 mosm/kg Normal 275-295 The [facility] Comment on above: Performed By: #### O SMO ####[facility] Ihpvdhlwwm88[address] [place], [place] [address]Dr. Airam Tripathi CBC AUTO DIFFon 07-15-2022 BASO # 0.0 103/ul Normal 0.0-0.1 The [facility] Comment on above: Performed By: #### C BC ####[facility] Vmqetwfrfz54[address] [place], [place] [address]Dr. Airam Tripathi Basophils/100 WBC (Bld) 0.2 % Normal 0.2-2.0 The [facility] Comment on above: Performed By: #### C BC ####[facility] Xszsyrrfrq220[address] [place], [place] [address]Dr. Airam Tripathi EO # 0.1 103/ul Normal 0.0-0.7 The [facility] Comment on above: Performed By: #### C BC ####[facility] Ghsmciocze[address] [place], [place] [address]Dr. Airam Tripathi Eosinophils/100 WBC (Bld) 1.4 % Normal 0.9-7.0 The [facility] Comment on above: Performed By: #### C BC ####[facility] Jgojspllhq[address] [place], [place] [address]Dr. Airam Tripathi Erythrocyte distribution width (RBC) [Ratio] 13.0 % Normal 11.0-15.0 The [facility] Comment on above: Performed By: #### C BC ####[facility] Ulntphxusr0759 [place] [address]Dr. Airam Tripathi Hematocrit (Bld) [Volume fraction] 29.3 % Critically low 36.0-48.0 The [facility] Comment on above: Performed By: #### C BC ####[facility] Izxsirkklj7254 [place] [address]Dr. Selenaneil Tripathi Hemoglobin (Bld) [Mass/Vol] 10.3 g/dL Critically low 12.0-16.0 The [facility] Comment on above: Performed By: #### C BC ####[facility] Druiuujonf8249 [place] [address]Dr. Airam Tripathi IG # 0.05 10e3/ul Critically high 0.00-0.03 [facility] Comment on above: Performed By: #### C BC ####[facility] Bqgjxqccne[address] [place], [place] [address]Dr. Airam Tripathi IG % 0.6 % Critically high 0.0-0.5 [facility] Comment on above: Performed By: #### C BC ####[facility] Rhynuxtqyk90[address] [place], [place] [address]Dr. Airam Tripathi LYMPH # 0.9 103/ul Critically low 1.2-3.8 [facility] Comment on above: Performed By: #### C BC ####[facility] Ahtmtdjedx97[address] [place], [place] [address]Dr. Airam Tripathi Lymphocytes/100 WBC (Bld) 10.6 % Critically low 20.5-60.0 The [facility] Comment on above: Performed By: #### C BC ####[facility] Qmfippwlis9292 [place] [address]Dr. Airam Tripathi MANUAL DIFF REQ NO Normal The [facility] Comment on above: Performed By: #### C BC ####[facility] Ttwyoagrcp[address] [place], [place] [address]Dr. Selenaneil Tripathi MCH (RBC) [Entitic mass] 29.3 pg Normal 26.7-34.0 The [facility] Comment on above: Performed By: #### C BC ####[facility] Ivvpfzzqzq0069 [place] [id number]. Airam Tripathi MCHC (RBC) [Mass/Vol] 35.2 g/dL Normal 29.9-35.2 [facility] Comment on above: Performed By: #### C BC ####[facility] Wgypgbwuqz6286 [place] [id number]. Airam Tripathi MCV (RBC) [Entitic vol] 83.5 fL Normal 81.0-99.0 [facility] Comment on above: Performed By: #### C BC ####[facility] Ugabxjfwum6738 [place] [id number]. Airam Tripathi MONO # 0.5 103/ul Normal 0.3-0.8 [facility] Comment on above: Performed By: #### C BC ####[facility] Dcvdwxovcp9899 [place] [id number]. Airam Deuce Monocytes/100 WBC (Bld) 5.1 % Normal 1.7-12.0 [facility] Comment on above: Performed By: #### C BC ####[facility] Unpdcutkta8525 [place] [id number]. Airam Tripathi NEUT # 7.3 103/ul Critically high 1.4-6.5 [facility] Comment on above: Performed By: #### C BC ####[facility] Ybtxqreyby0604 [place] [id number]. Airam Deuce Neutrophils/100 WBC (Bld) 82.1 % Critically high 43.0-75.0 [facility] Comment on above: Performed By: #### C BC ####[facility] Uzjeojgito5016 [place] [id number]. Airam Tripathi Platelet mean volume (Bld) [Entitic vol] 8.9 fL Critically low 9.5-13.5 [facility] Comment on above: Performed By: #### C BC ####[facility] Mvkkwtngkg3010 [place] [id number]. Airam Deuce PLT 290 103/ul Normal 150-450 [facility] Comment on above: Performed By: #### C BC ####[facility] Gnxmafpphf6092 [place] [id number]. Airam Tripathi RBC 3.51 106/ul Critically low 4.20-5.40 [facility] Comment on above: Performed By: #### C BC ####[facility] Mydmuvbgrb9114 [place] [address]Dr. Airam Tripathi WBC 8.9 103/ul Normal 4.0-11.0 [facility] Comment on above: Performed By: #### C BC ####[facility] Mjfzbkpufw0715 [place] [address]Dr. Airam Tripathi PROF 14(COMP METB)on 023 Albumin [Mass/Vol] 3.2 g/dL Critically low 3.4-5.0 [facility] Comment on above: Performed By: #### C MP ####[facility] Zgzfhetdzg[address] [place], [place] [address]Dr. Airam Tripathi Albumin/Globulin [Mass ratio] 0.9 {ratio} Normal [facility] Comment on above: Performed By: #### C MP ####[facility] Xqckoyehsw308[address] [place], [place] [address]Dr. Airam Tripathi ALP [Catalytic activity/Vol] 194 U/L Critically high 46-116 [facility] Comment on above: Performed By: #### C MP ####[facility] Ppclodvpxw[address] [place], [place] [address]Dr. Airam Tripathi ALT [Catalytic activity/Vol] 19 U/L Normal 14-59 [facility] Comment on above: Performed By: #### C MP ####[facility] Mdjrooifje14[address] [place], [place] [address]Dr. Airam Tripathi Anion gap [Moles/Vol] 11.3 mmol/L Normal [facility] Comment on above: Performed By: #### C MP ####[facility] Qoeoydzvcy987[address] [place], [place] [address]Dr. Airam Tripathi AST [Catalytic activity/Vol] 24 U/L Normal 15-37 [facility] Comment on above: Performed By: #### C MP ####[facility] Tabaikhhso6004 [place] [id number]. Airam Tripathi Bilirubin [Mass/Vol] 0.2 mg/dL Normal 0.2-1.0 [facility] Comment on above: Performed By: #### C MP ####[facility] Wwdxkngnxq2367 [place] [id number]. Airam Tripathi Calcium [Mass/Vol] 8.7 mg/dL Normal 8.5-10.1 [facility] Comment on above: Performed By: #### C MP ####[facility] Qixwaxilhb2296 [place] [id number]. Airam Tripathi Chloride [Moles/Vol] 101 mmol/L Normal 98-107 [facility] Comment on above: Performed By: #### C MP ####[facility] Oydjvqawjk2081 [place] [address]Dr. Airam Tripathi CO2 [Moles/Vol] 27.2 mmol/L Normal 21.0-32.0 [facility] Comment on above: Performed By: #### C MP ####[facility] Dzpxwuvrfw[address] [place], [place] [address]Dr. Airam Tripathi Creatinine [Mass/Vol] 1.17 mg/dL Critically high 0.55-1.02 [facility] Comment on above: Performed By: #### C MP ####[facility] Lieuxoueie[address] [place], [place] [address]Dr. Airam Tripathi EGFR-AF CYPRIOT 57 mL/min/1.73m2 Critically low >=60 [facility] Comment on above: Performed By: #### C MP ####[facility] Rkuuvrpzfl4105 [place] [id number]. Airam Tripathi EGFR-NON AF CYPRIOT 47 mL/min/1.73m2 Critically low >=60 [facility] Comment on above: Performed By: #### C MP ####[facility] Gumsbieefk3223 [place] [id number]. Airam Tripathi Globulin (S) [Mass/Vol] 3.5 g/dL Normal [facility] Comment on above: Performed By: #### C MP ####[facility] Iawrjguwuu1096 [place] [address]Dr. Airam Tripathi Glucose [Mass/Vol] 86 mg/dL Normal 74-106 [facility] Comment on above: Performed By: #### C MP ####[facility] Jymgzbplcm7325 [place] [address]Dr. Airam Tripathi Potassium [Moles/Vol] 5.5 mmol/L Critically high 3.5-5.1 [facility] Comment on above: Performed By: #### C MP ####[facility] Dfasgkzzdf806[address] [place], [place] [address]Dr. Airam Tripathi Protein [Mass/Vol] 6.7 g/dL Normal 6.4-8.2 [facility] Comment on above: Performed By: #### C MP ####[facility] Hvmvrcgdgb35[address] [place], [place] [address]Dr. Airam Tripathi Sodium [Moles/Vol] 134 mmol/L Critically low 136-145 [facility] Comment on above: Performed By: #### C MP ####[facility] Yaxrkrijty88[address] [place], [place] [address]Dr. Airam Tripathi Urea nitrogen [Mass/Vol] 26.0 mg/dL Critically high 7.0-18.0 [facility] Comment on above: Performed By: #### C MP ####[facility] Hjimqnnwnu784[address] [place], [place] [address]Dr. Airam Tripathi Urea nitrogen/Creatinine [Mass ratio] 22.2 mg/mg Normal [facility] Comment on above: Performed By: #### C MP ####[facility] Efofuulxab9[address] [place], [place] [address]Dr. Airam Deuce OSMOLALITYon 07-08-2022 Osmolality [Osmolality] 273 mosm/kg Critically low 275-295 [facility] Comment on above: Performed By: #### O SMO ####[facility] Vxawadwhxk7299[address] [place], [place] [address]Dr. Airam Tripathi CBC AUTO DIFFon 07-07-2022 BASO # 0.0 103/ul Normal 0.0-0.1 [facility] Comment on above: Performed By: #### C BC ####[facility] Pvputjstqf9306 [place] [id number]. Airam Tripathi Basophils/100 WBC (Bld) 0.4 % Normal 0.2-2.0 [facility] Comment on above: Performed By: #### C BC ####[facility] Mwwvpepviy[address] [place], [place] [address]Dr. Airam Tripathi EO # 0.1 103/ul Normal 0.0-0.7 [facility] Comment on above: Performed By: #### C BC ####[facility] Ckrthdonvs09[address] [place], [place] [address]Dr. Airam Tripathi Eosinophils/100 WBC (Bld) 1.6 % Normal 0.9-7.0 [facility] Comment on above: Performed By: #### C BC ####[facility] Zfxgzmbulv815[address] [place], [place] [address]Dr. Airam Tripathi Erythrocyte distribution width (RBC) [Ratio] 13.1 % Normal 11.0-15.0 [facility] Comment on above: Performed By: #### C BC ####[facility] Jpygatspzw084[address] [place], [place] [address]Dr. Airam Tripathi Hematocrit (Bld) [Volume fraction] 33.7 % Critically low 36.0-48.0 [facility] Comment on above: Performed By: #### C BC ####[facility] Vgdligvuiq58[address] [place], [place] [address]Dr. Airam Tripathi Hemoglobin (Bld) [Mass/Vol] 9.9 g/dL Critically low 12.0-16.0 [facility] Comment on above: Performed By: #### C BC ####[facility] Xxnpdybozc4[address] [place], [place] [address]Dr. Airam Tripathi IG # 0.05 10e3/ul Critically high 0.00-0.03 [facility] Comment on above: Performed By: #### C BC ####[facility] Ovmpxfodar4[address] [place], [place] [address]Dr. Airam Tripathi IG % 0.6 % Critically high 0.0-0.5 [facility] Comment on above: Performed By: #### C BC ####[facility] Okgdohkxvr8082 [place] [id number]. Airam Deuce LYMPH # 1.2 103/ul Normal 1.2-3.8 [facility] Comment on above: Performed By: #### C BC ####[facility] Topvrewbsr0017 [place] [address]Dr. Selenaneil Tripathi Lymphocytes/100 WBC (Bld) 15.5 % Critically low 20.5-60.0 [facility] Comment on above: Performed By: #### C BC ####[facility] Fgzrkijeyn1324 [place] [id number]. Airam Tripathi MANUAL DIFF REQ NO Normal [facility] Comment on above: Performed By: #### C BC ####[facility] Opmxxikaqs0695 [place] [id number]. Airam Tripathi MCH (RBC) [Entitic mass] 28.7 pg Normal 26.7-34.0 [facility] Comment on above: Performed By: #### C BC ####[facility] Mnnhwknzsd1845 [place] [id number]. Airam Deuce MCHC (RBC) [Mass/Vol] 29.4 g/dL Critically low 29.9-35.2 [facility] Comment on above: Performed By: #### C BC ####[facility] Wnxaehvngw4296 [place] [address]Dr. Airam Tripathi MCV (RBC) [Entitic vol] 97.7 fL Normal 81.0-99.0 [facility] Comment on above: Performed By: #### C BC ####[facility] Iwlvnapubm8968 [place] [address]Dr. Selenaneil Deuce MONO # 0.6 103/ul Normal 0.3-0.8 [facility] Comment on above: Performed By: #### C BC ####[facility] Oxyndimcdp3656 [place] [address]Dr. Airam Tripathi Monocytes/100 WBC (Bld) 7.7 % Normal 1.7-12.0 [facility] Comment on above: Performed By: #### C BC ####[facility] Zuajdscygs6565 [place] [address]Dr. Airam Tripathi NEUT # 5.9 103/ul Normal 1.4-6.5 [facility] Comment on above: Performed By: #### C BC ####[facility] Ffimzcunrj4866 [place] [address]Dr. Airam Deuce Neutrophils/100 WBC (Bld) 74.2 % Normal 43.0-75.0 [facility] Comment on above: Performed By: #### C BC ####[facility] Wwbrmlxems1378 [place] [address]Dr. Airam Tripathi Platelet mean volume (Bld) [Entitic vol] 9.4 fL Critically low 9.5-13.5 [facility] Comment on above: Performed By: #### C BC ####[facility] Nnigvdnewv1139 [place] [address]Dr. Selenaneil Deuce PLT 331 103/ul Normal 150-450 [facility] Comment on above: Performed By: #### C BC ####[facility] Nbitqhavbh9354 [place] [address]Dr. Selenaneil Tripathi RBC 3.45 106/ul Critically low 4.20-5.40 [facility] Comment on above: Performed By: #### C BC ####[facility] Ecqyirasxu5860 [place] [address]Dr. Selenaneil Deuce WBC 7.9 103/ul Normal 4.0-11.0 [facility] Comment on above: Performed By: #### C BC ####[facility] Rxylejxppb04[address] [place], [place] [address]Dr. Airam Tripathi PROF 14(COMP METB)on 023 Albumin [Mass/Vol] 3.4 g/dL Normal 3.4-5.0 [facility] Comment on above: Performed By: #### C MP ####[facility] Zfsgqfqkap225[address] [place], [place] [address]Dr. Airam Tripathi Albumin/Globulin [Mass ratio] 1.1 {ratio} Normal [facility] Comment on above: Performed By: #### C MP ####[facility] Mjzidwosmv4245 [place] [address]Dr. Airam Tripathi ALP [Catalytic activity/Vol] 197 U/L Critically high 46-116 [facility] Comment on above: Performed By: #### C MP ####[facility] Ikzdqzodke6794 [place] [address]Dr. Airam Tripathi ALT [Catalytic activity/Vol] 18 U/L Normal 14-59 [facility] Comment on above: Performed By: #### C MP ####[facility] Drrpkwbeom6490 [place] [address]Dr. Airam Tripathi Anion gap [Moles/Vol] 12.3 mmol/L Normal Th e [facility] Comment on above: Performed By: #### C MP ####[facility] Hbtnxariga0711[address] [place], [place] [address]Dr. Airam Tripathi AST [Catalytic activity/Vol] 26 U/L Normal 15-37 [facility] Comment on above: Performed By: #### C MP ####[facility] Uwvvtwdzlx1050[address] [place], [place] [address]Dr. Airam Tripathi Bilirubin [Mass/Vol] 0.3 mg/dL Normal 0.2-1.0 [facility] Comment on above: Performed By: #### C MP ####[facility] Qbkebogejw3[address] [place], [place] [address]Dr. Airam Tripathi Calcium [Mass/Vol] 8.6 mg/dL Normal 8.5-10.1 [facility] Comment on above: Performed By: #### C MP ####[facility] Cenwcaeavu70[address] [place], [place] [address]Dr. Airam Tripathi Chloride [Moles/Vol] 96 mmol/L Critically low 98-107 [facility] Comment on above: Performed By: #### C MP ####[facility] Jzqayokygj25[address] [place], [place] [address]Dr. Airam Tripathi CO2 [Moles/Vol] 27.8 mmol/L Normal 21.0-32.0 [facility] Comment on above: Performed By: #### C MP ####[facility] Ohnzwmvfrd8838 [place] [id number]. Airam Tripathi Creatinine [Mass/Vol] 1.55 mg/dL Critically high 0.55-1.02 [facility] Comment on above: Performed By: #### C MP ####[facility] Xlrtirysnd0809 [place] [id number]. Airam Tripathi EGFR-AF CYPRIOT 41 mL/min/1.73m2 Critically low >=60 [facility] Comment on above: Performed By: #### C MP ####[facility] Whngrwlccv5910 [place] [address]Dr. Airam Tripathi EGFR-NON AF CYPRIOT 34 mL/min/1.73m2 Critically low >=60 [facility] Comment on above: Performed By: #### C MP ####[facility] Smasqmpxlm1048 [place] [address]Dr. Airam Tripathi Globulin (S) [Mass/Vol] 3.2 g/dL Normal [facility] Comment on above: Performed By: #### C MP ####[facility] Egudhymbql6246 [place] [address]Dr. Airam Tripathi Glucose [Mass/Vol] 87 mg/dL Normal 74-106 [facility] Comment on above: Performed By: #### C MP ####[facility] Atycltmtol0929 [place] [address]Dr. Airam Tripathi Potassium [Moles/Vol] 5.1 mmol/L Normal 3.5-5.1 [facility] Comment on above: Performed By: #### C MP ####[facility] Heocrexxsu4650 [place] [id number]. Airam Tripathi Protein [Mass/Vol] 6.6 g/dL Normal 6.4-8.2 [facility] Comment on above: Performed By: #### C MP ####[facility] Qdwvuaivcf3007 [place] [address]Dr. Airam Tripathi Sodium [Moles/Vol] 131 mmol/L Critically low 136-145 [facility] Comment on above: Performed By: #### C MP ####[facility] Plsvmtlwqs88[address] [place], [place] [address]Dr. Airam Tripathi Urea nitrogen [Mass/Vol] 31.0 mg/dL Critically high 7.0-18.0 [facility] Comment on above: Performed By: #### C MP ####[facility] Kvbpfzmsyg18[address] [place], [place] [address]Dr. Airam Tripathi Urea nitrogen/Creatinine [Mass ratio] 20.0 mg/mg Normal [facility] Comment on above: Performed By: #### C MP ####[facility] Iicyaoofjf2739[address] [place], [place] [address]Dr. Airam Tripathi OSMOLALITYon 07-02-2022 Osmolality [Osmolality] 281 mosm/kg Normal 275-295 [facility] Comment on above: Performed By: #### O SMO ####[facility] Kwdbletyzh720[address] [place], [place] [address]Dr. Airam Tripathi CBC AUTO DIFFon 06-29-2022 BASO # 0.0 103/ul Normal 0.0-0.1 [facility] Comment on above: Performed By: #### C BC ####[facility] Sizmkebudx0610[address] [place], [place] [address]Dr. Airam Tripathi Basophils/100 WBC (Bld) 0.3 % Normal 0.2-2.0 [facility] Comment on above: Performed By: #### C BC ####[facility] Hycnurfckw9355[address] [place], [place] [address]Dr. Airam Tripathi EO # 0.2 103/ul Normal 0.0-0.7 [facility] Comment on above: Performed By: #### C BC ####[facility] Yloobflonv5[address] [place], [place] [address]Dr. Airam Tripathi Eosinophils/100 WBC (Bld) 2.3 % Normal 0.9-7.0 [facility] Comment on above: Performed By: #### C BC ####[facility] Nmscpcmvtg715[address] [place], [place] [address]Dr. Airam Tripathi Erythrocyte distribution width (RBC) [Ratio] 13.2 % Normal 11.0-15.0 [facility] Comment on above: Performed By: #### C BC ####[facility] Fzbacckowz7273 [place] [address]Dr. Airam Tripathi Hematocrit (Bld) [Volume fraction] 28.2 % Critically low 36.0-48.0 [facility] Comment on above: Performed By: #### C BC ####[facility] Dkbkqlpoyg3978 [place] [address]DrKianna Airam Deuce Hemoglobin (Bld) [Mass/Vol] 9.1 g/dL Critically low 12.0-16.0 [facility] Comment on above: Performed By: #### C BC ####[facility] Wpiepkukci1523[address] [place], [place] [address]DrKianna Tripathi IG # 0.03 10e3/ul Normal 0.00-0.03 [facility] Comment on above: Performed By: #### C BC ####[facility] Aetqylscbl206[address] [place], [place] [address]DrKianna Tripathi IG % 0.4 % Normal 0.0-0.5 [facility] Comment on above: Performed By: #### C BC ####[facility] Rwducwcuyx0999[address] [place], [place] [address]DrKianna Selenaneil Tripathi LYMPH # 1.0 103/ul Critically low 1.2-3.8 [facility] Comment on above: Performed By: #### C BC ####[facility] Sklznwhuaq9127[address] [place], [place] [address]DrKianna Trpiathi Lymphocytes/100 WBC (Bld) 12.8 % Critically low 20.5-60.0 [facility] Comment on above: Performed By: #### C BC ####[facility] Ywpqkxylob389[address] [place], [place] [address]DrKianna Selenaneil Tripathi MANUAL DIFF REQ NO Normal [facility] Comment on above: Performed By: #### C BC ####[facility] Lffkvithji0675[address] [place], [place] [address]DrKianna Tripathi MCH (RBC) [Entitic mass] 29.9 pg Normal 26.7-34.0 [facility] Comment on above: Performed By: #### C BC ####[facility] Txftusbxci7854 [place] [id number]. Airam Tripathi MCHC (RBC) [Mass/Vol] 32.3 g/dL Normal 29.9-35.2 [facility] Comment on above: Performed By: #### C BC ####[facility] Zybinbmryf3546 [place] [address]Dr. Airam Tripathi MCV (RBC) [Entitic vol] 92.8 fL Normal 81.0-99.0 [facility] Comment on above: Performed By: #### C BC ####[facility] Hcpvnaurhz[address] [place], [place] [address]Dr. Airam Tripathi MONO # 0.5 103/ul Normal 0.3-0.8 [facility] Comment on above: Performed By: #### C BC ####[facility] Dpftvrdosw142[address] [place], [place] [address]Dr. Airam Tripathi Monocytes/100 WBC (Bld) 6.0 % Normal 1.7-12.0 [facility] Comment on above: Performed By: #### C BC ####[facility] Nfdxrxjogj59[address] [place], [place] [address]Dr. Airam Tripathi NEUT # 6.0 103/ul Normal 1.4-6.5 [facility] Comment on above: Performed By: #### C BC ####[facility] Lwnhlxmuux686[address] [place], [place] [address]DrKianna Tripathi Neutrophils/100 WBC (Bld) 78.2 % Critically high 43.0-75.0 [facility] Comment on above: Performed By: #### C BC ####[facility] Vpxzkjmldw2340[address] [place], [place] [address]DrKianna Tripathi Platelet mean volume (Bld) [Entitic vol] 9.0 fL Critically low 9.5-13.5 [facility] Comment on above: Performed By: #### C BC ####[facility] Rqumhqpfrs62[address] [place], [place] [address]Dr. Airam Tripathi PLT 332 103/ul Normal 150-450 [facility] Comment on above: Performed By: #### C BC ####[facility] Nevnoiecdi5256 [place] [address]Dr. Selenaneil Deuce RBC 3.04 106/ul Critically low 4.20-5.40 [facility] Comment on above: Performed By: #### C BC ####[facility] Zoyvnfrvxn2868 [place] [address]Dr. Airam Tripathi WBC 7.7 103/ul Normal 4.0-11.0 [facility] Comment on above: Performed By: #### C BC ####[facility] Udvztesvaf7724 [place] [address]Dr. Airam Tripathi PROF 14(COMP METB)on 023 Albumin [Mass/Vol] 3.2 g/dL Critically low 3.4-5.0 Th e [facility] Comment on above: Performed By: #### C MP ####[facility] Cyzjufnsin[address] [place], [place] [address]Dr. Airam Tripathi Albumin/Globulin [Mass ratio] 0.9 {ratio} Normal [facility] Comment on above: Performed By: #### C MP ####[facility] Cygnqxsuuz3290[address] [place], [place] [address]Dr. Airam Tripathi ALP [Catalytic activity/Vol] 135 U/L Critically high 46-116 [facility] Comment on above: Performed By: #### C MP ####[facility] Llwgzylqbd5432 [place] [address]Dr. Airam Tripathi ALT [Catalytic activity/Vol] 25 U/L Normal 14-59 [facility] Comment on above: Performed By: #### C MP ####[facility] Ukvsaiubky232[address] [place], [place] [address]Dr. Airam Tripathi Anion gap [Moles/Vol] 9.1 mmol/L Normal [facility] Comment on above: Performed By: #### C MP ####[facility] Vnecdcvmxa6501 [place] [address]Dr. Airam Tripathi AST [Catalytic activity/Vol] 34 U/L Normal 15-37 [facility] Comment on above: Performed By: #### C MP ####[facility] Pwrzdncczr4439 [place] [address]Dr. Airam Tripathi Bilirubin [Mass/Vol] 0.3 mg/dL Normal 0.2-1.0 [facility] Comment on above: Performed By: #### C MP ####[facility] Zxvppogjxo47[address] [place], [place] [address]Dr. Airam Tripathi Calcium [Mass/Vol] 8.6 mg/dL Normal 8.5-10.1 [facility] Comment on above: Performed By: #### C MP ####[facility] Ltnrbroiey54[address] [place], [place] [address]Dr. Airam Tripathi Chloride [Moles/Vol] 99 mmol/L Normal 98-107 [facility] Comment on above: Performed By: #### C MP ####[facility] Bccfxjxgkn9[address] [place], [place] [address]Dr. Airam Tripathi CO2 [Moles/Vol] 29.1 mmol/L Normal 21.0-32.0 [facility] Comment on above: Performed By: #### C MP ####[facility] Kkcrplffwx224[address] [place], [place] [address]Dr. Airam Tripathi Creatinine [Mass/Vol] 1.40 mg/dL Critically high 0.55-1.02 [facility] Comment on above: Performed By: #### C MP ####[facility] Zijhutfaly9[address] [place], [place] [address]Dr. Airam Tripathi EGFR-AF CYPRIOT 46 mL/min/1.73m2 Critically low >=60 [facility] Comment on above: Performed By: #### C MP ####[facility] Twjwkfczex[address] [place], [place] [address]Dr. Airam Tripathi EGFR-NON AF CYPRIOT 38 mL/min/1.73m2 Critically low >=60 [facility] Comment on above: Performed By: #### C MP ####[facility] Ojourjsyid[address] [place], [place] [address]Dr. Airam Tripathi Globulin (S) [Mass/Vol] 3.4 g/dL Normal [facility] Comment on above: Performed By: #### C MP ####[facility] Zkucxdwphx[address] [place] [address]Dr. Airam Tripathi Glucose [Mass/Vol] 83 mg/dL Normal 74-106 [facility] Comment on above: Performed By: #### C MP ####[facility] Qiuitcbjcz1303 [place] [address]Dr. Airam Tripathi Potassium [Moles/Vol] 4.2 mmol/L Normal 3.5-5.1 [facility] Comment on above: Performed By: #### C MP ####[facility] Mkdcokyltk[address] [place], [place] [address]Dr. Airam Tripathi Protein [Mass/Vol] 6.6 g/dL Normal 6.4-8.2 [facility] Comment on above: Performed By: #### C MP ####[facility] Jxktoddyrc[address] [place], [place] [address]Dr. Airam Tripathi Sodium [Moles/Vol] 133 mmol/L Critically low 136-145 [facility] Comment on above: Performed By: #### C MP ####[facility] Ftrsitjtze7[address] [place], [place] [address]Dr. Airam Tripathi Urea nitrogen [Mass/Vol] 37.0 mg/dL Critically high 7.0-18.0 [facility] Comment on above: Performed By: #### C MP ####[facility] Aetavydqrc[address] [place], [place] [address]Dr. Airam Tripathi Urea nitrogen/Creatinine [Mass ratio] 26.4 mg/mg Normal [facility] Comment on above: Performed By: #### C MP ####[facility] Pxutmjikoc9[address] [place], [place] [address]Dr. Airam Tripathi BNPon 06-18-2022 Natriuretic peptide B (Bld) [Mass/Vol] 5826.0 pg/mL Critically high <=900.0 [facility] Comment on above: Performed By: #### B LARGE ENGINE ASSEMBLER, CMP ####[facility] Prjknazphp[address] [place], [place] [address]Dr. Airam Tripathi CBC AUTO DIFFon 12-24-2022 BASO # 0.0 103/ul Normal 0.0-0.1 [facility] Comment on above: Performed By: #### C BC ####[facility] Y[address]mgwiqxa[address] [place] [address]DrKianna Tripathi Basophils/100 WBC (Bld) 0.4 % Normal 0.2-2.0 [facility] Comment on above: Performed By: #### C BC ####[facility] Lwgmnnyzhj[address] [place], [place] [address]DrKianna Tripathi EO # 0.1 103/ul Normal 0.0-0.7 [facility] Comment on above: Performed By: #### C BC ####[facility] Qwhsujefwm[address] [place], [place] [address]DrKianna Tripathi Eosinophils/100 WBC (Bld) 1.3 % Normal 0.9-7.0 [facility] Comment on above: Performed By: #### C BC ####[facility] Zhwncoosda[address] [place], [place] [address]DrKianna Tripathi Erythrocyte distribution width (RBC) [Ratio] 13.4 % Normal 11.0-15.0 [facility] Comment on above: Performed By: #### C BC ####[facility] Pitfxbypni[address] [place], [place] [address]DrKianna Tripathi Hematocrit (Bld) [Volume fraction] 27.3 % Critically low 36.0-48.0 [facility] Comment on above: Performed By: #### C BC ####[facility] Zzdtzntetf[address] [place], [place] [address]DrKianna Tripathi Hemoglobin (Bld) [Mass/Vol] 8.6 g/dL Critically low 12.0-16.0 [facility] Comment on above: Performed By: #### C BC ####[facility] Ruredlqrtu35[address] [place], [place] [address]DrKianna Tripathi IG # 0.08 10e3/ul Critically high 0.00-0.03 [facility] Comment on above: Performed By: #### C BC ####[facility] Gnrddezjsd4537[address] [place], [place] [address]Dr. Airam Tripathi IG % 0.8 % Critically high 0.0-0.5 [facility] Comment on above: Performed By: #### C BC ####[facility] Nvfbqgnewl7[address] [place] [address]DrKianna Tripathi LYMPH # 1.9 103/ul Normal 1.2-3.8 [facility] Comment on above: Performed By: #### C BC ####[facility] Zqefzrxoho4[address] [place] [address]DrKianna Tripathi Lymphocytes/100 WBC (Bld) 19.3 % Critically low 20.5-60.0 [facility] Comment on above: Performed By: #### C BC ####[facility] Bcyllxbdgx87[address] [place], [place] [address]DrKianna Tripathi MANUAL DIFF REQ NO Normal [facility] Comment on above: Performed By: #### C BC ####[facility] Xoeegeuhxz8104 [place] [address]DrKianna Tripathi MCH (RBC) [Entitic mass] 29.6 pg Normal 26.7-34.0 [facility] Comment on above: Performed By: #### C BC ####[facility] Tdfyckjrio[address] [place], [place] [address]DrKianna Tripathi MCHC (RBC) [Mass/Vol] 31.5 g/dL Normal 29.9-35.2 [facility] Comment on above: Performed By: #### C BC ####[facility] Tnsbnrfezr[address] [place], [place] [address]DrKianna Tripathi MCV (RBC) [Entitic vol] 93.8 fL Normal 81.0-99.0 [facility] Comment on above: Performed By: #### C BC ####[facility] Bhpooumsvz75[address] [place], [place] [address]DrKianna Tripathi MONO # 0.6 103/ul Normal 0.3-0.8 [facility] Comment on above: Performed By: #### C BC ####[facility] Hffzbzbsia60[address] [place], [place] [address]DrKianna Tripathi Monocytes/100 WBC (Bld) 6.5 % Normal 1.7-12.0 [facility] Comment on above: Performed By: #### C BC ####[facility] Ulrtgtgkls39[address] [place] [address]Dr. Airam Tripathi NEUT # 6.9 103/ul Critically high 1.4-6.5 [facility] Comment on above: Performed By: #### C BC ####[facility] Cwzzemexfq4830 [place] [address]Dr. Airam Tripathi Neutrophils/100 WBC (Bld) 71.7 % Normal 43.0-75.0 [facility] Comment on above: Performed By: #### C BC ####[facility] Yzezbzolhg0418[address] [place], [place] [address]Dr. Airam Tripathi Platelet mean volume (Bld) [Entitic vol] 8.5 fL Critically low 9.5-13.5 [facility] Comment on above: Performed By: #### C BC ####[facility] Vlwffgdnqn299[address] [place], [place] [address]Dr. Airam Tripathi PLT 295 103/ul Normal 150-450 [facility] Comment on above: Performed By: #### C BC ####[facility] Xfskuiildv88[address] [place], [place] [address]Dr. Airam Tripathi RBC 2.91 106/ul Critically low 4.20-5.40 [facility] Comment on above: Performed By: #### C BC ####[facility] Bdxbyhmzme2336[address] [place], [place] [address]Dr. Airam Tripathi WBC 9.7 103/ul Normal 4.0-11.0 [facility] Comment on above: Performed By: #### C BC ####[facility] Aresismnjn0734[address] [place], [place] [address]Dr. Airam Deuce PROF 14(COMP METB)on 06-18- 022 Albumin [Mass/Vol] 2.8 g/dL Critically low 3.4-5.0 [facility] Comment on above: Performed By: #### B LARGE ENGINE ASSEMBLER, CMP ####[facility] Vvialdimte[address] [place], [place] [id number]. Airam Tripathi Albumin/Globulin [Mass ratio] 0.9 {ratio} Normal [facility] Comment on above: Performed By: #### B LARGE ENGINE ASSEMBLER, CMP ####[facility] Rkrtrbsacy4051 [place] [address]Dr. Airam Tripathi ALP [Catalytic activity/Vol] 125 U/L Critically high 46-116 [facility] Comment on above: Performed By: #### B LARGE ENGINE ASSEMBLER, CMP ####[facility] Mstkaybemt23[address] [place] [address]Dr. Airam Deuce ALT [Catalytic activity/Vol] 16 U/L Normal 14-59 [facility] Comment on above: Performed By: #### B LARGE ENGINE ASSEMBLER, CMP ####[facility] Iqedcpywwf[address] [place], [place] [address]Dr. Selenaneil Deuce Anion gap [Moles/Vol] 11.4 mmol/L Normal [facility] Comment on above: Performed By: #### B LARGE ENGINE ASSEMBLER, CMP ####[facility] Smrcvamdku7147[address] [place], [place] [address]Dr. Airam Deuce AST [Catalytic activity/Vol] 23 U/L Normal 15-37 [facility] Comment on above: Performed By: #### B LARGE ENGINE ASSEMBLER, CMP ####[facility] Icehnkbckr9985[address] [place], [place] [address]Dr. Airam Tripathi Bilirubin [Mass/Vol] 0.2 mg/dL Normal 0.2-1.0 [facility] Comment on above: Performed By: #### B LARGE ENGINE ASSEMBLER, CMP ####[facility] Arcobvijtz9[address] [place] [address]Dr. Airam Tripathi Calcium [Mass/Vol] 8.1 mg/dL Critically low 8.5-10.1 [facility] Comment on above: Performed By: #### B LARGE ENGINE ASSEMBLER, CMP ####[facility] Qzpllpmiab9860[address] [place], [place] [address]Dr. Airam Tripathi Chloride [Moles/Vol] 96 mmol/L Critically low 98-107 [facility] Comment on above: Performed By: #### B LARGE ENGINE ASSEMBLER, CMP ####[facility] Qcbthiiqkc2700[address] [place], [place] [address]Dr. Airam Tripathi CO2 [Moles/Vol] 26.6 mmol/L Normal 21.0-32.0 [facility] Comment on above: Performed By: #### B LARGE ENGINE ASSEMBLER, CMP ####[facility] Huhykibdrl2287[address] [place], [place] [address]Dr. Airam Tripathi Creatinine [Mass/Vol] 1.31 mg/dL Critically high 0.55-1.02 [facility] Comment on above: Performed By: #### B LARGE ENGINE ASSEMBLER, CMP ####[facility] Clxtlyfxyc6349[address] [place], [place] [address]Dr. Airam Tripathi EGFR-AF CYPRIOT 50 mL/min/1.73m2 Critically low >=60 [facility] Comment on above: Performed By: #### B LARGE ENGINE ASSEMBLER, CMP ####[facility] Eksufhkzjc5[address] [place], [place] [address]Dr. Airam Tripathi EGFR-NON AF CYPRIOT 41 mL/min/1.73m2 Critically low >=60 [facility] Comment on above: Performed By: #### B LARGE ENGINE ASSEMBLER, CMP ####[facility] Cnrvwywqog8089[address] [place], [place] [address]Dr. Airam Tripathi Globulin (S) [Mass/Vol] 3.0 g/dL Normal [facility] Comment on above: Performed By: #### B LARGE ENGINE ASSEMBLER, CMP ####[facility] Vhkjzgkqwe18[address] [place], [place] [address]Dr. Airam Tripathi Glucose [Mass/Vol] 82 mg/dL Normal 74-106 [facility] Comment on above: Performed By: #### B LARGE ENGINE ASSEMBLER, CMP ####[facility] Csjnbfmagp492[address] [place], [place] [address]Dr. Airam Tripathi Potassium [Moles/Vol] 4.0 mmol/L Normal 3.5-5.1 [facility] Comment on above: Performed By: #### B LARGE ENGINE ASSEMBLER, CMP ####[facility] Trczseockr[address] [place], [place] [address]Dr. Airam Tripathi Protein [Mass/Vol] 5.8 g/dL Critically low 6.4-8.2 Th [facility] Comment on above: Performed By: #### B LARGE ENGINE ASSEMBLER, CMP ####[facility] Zgdowlaurw9816[address] [place], [place] [address]Dr. Airam Deuce Sodium [Moles/Vol] 130 mmol/L Critically low 136-145 Th e [facility] Comment on above: Performed By: #### B LARGE ENGINE ASSEMBLER, CMP ####[facility] Avqrtjahzo8733[address] [place], [place] [address]Dr. Airam Tripathi Urea nitrogen [Mass/Vol] 19.0 mg/dL Critically high 7.0-18.0 [facility] Comment on above: Performed By: #### B LARGE ENGINE ASSEMBLER, CMP ####[facility] Gqzxikwknk9[address] [place], [place] [address]Dr. Airam Tripathi Urea nitrogen/Creatinine [Mass ratio] 14.5 mg/mg Normal [facility] Comment on above: Performed By: #### B LARGE ENGINE ASSEMBLER, CMP ####[facility] Kzpeoztmbj234[address] [place], [place] [address]Dr. Airam Deuce BNPon 06-17-2022 Natriuretic peptide B (Bld) [Mass/Vol] 2510.0 pg/mL Critically high <=900.0 [facility] Comment on above: Performed By: #### B LARGE ENGINE ASSEMBLER, CMP ####[facility] Flnqkwtmkw9433[address] [place], [place] [address]Dr. Selenaneil Deuce CBC AUTO DIFFon 06-17-2022 BASO # 0.0 103/ul Normal 0.0-0.1 [facility] Comment on above: Performed By: #### C BC ####[facility] Ixkhyvpzbr[address] [place], [place] [address]Dr. Airam Tripathi Basophils/100 WBC (Bld) 0.4 % Normal 0.2-2.0 [facility] Comment on above: Performed By: #### C BC ####[facility] Fdbvsjstuh972[address] [place], [place] [address]Dr. Airam Tripathi EO # 0.0 103/ul Normal 0.0-0.7 [facility] Comment on above: Performed By: #### C BC ####[facility] Usxkssuovu01[address] [place], [place] [address]Dr. Airam Tripathi Eosinophils/100 WBC (Bld) 0.3 % Critically low 0.9-7.0 [facility] Comment on above: Performed By: #### C BC ####[facility] Tkequkvgpc0639[address] [place], [place] [address]Dr. Airam Tripathi Erythrocyte distribution width (RBC) [Ratio] 13.6 % Normal 11.0-15.0 [facility] Comment on above: Performed By: #### C BC ####[facility] Qkygtgmtaz8794[address] [place], [place] [address]Dr. Airam Tripathi Hematocrit (Bld) [Volume fraction] 28.9 % Critically low 36.0-48.0 [facility] Comment on above: Performed By: #### C BC ####[facility] Ltwdkmcbah[address] [place], [place] [address]Dr. Airam Tripathi Hemoglobin (Bld) [Mass/Vol] 8.9 g/dL Critically low 12.0-16.0 [facility] Comment on above: Performed By: #### C BC ####[facility] Wdxsuiygzs243[address] [place], [place] [address]Dr. Airam Tripathi IG # 0.10 10e3/ul Critically high 0.00-0.03 [facility] Comment on above: Performed By: #### C BC ####[facility] Ctkumipran[address]27[address] [place], [place] [address]Dr. Airam Tripathi IG % 1.3 % Critically high 0.0-0.5 [facility] Comment on above: Performed By: #### C BC ####[facility] Zvbkfgwadg8[address] [place], [place] [address]Dr. Airam Tripathi LYMPH # 0.7 103/ul Critically low 1.2-3.8 [facility] Comment on above: Performed By: #### C BC ####[facility] Nudpalpncw7[address] [place], [place] [address]Dr. Airam Tripathi Lymphocytes/100 WBC (Bld) 8.1 % Critically low 20.5-60.0 [facility] Comment on above: Performed By: #### C BC ####[facility] Epefgshfyr[address] [place] [address]Dr. Selenaneil Tripathi MANUAL DIFF REQ NO Normal [facility] Comment on above: Performed By: #### C BC ####[facility] Vjgjiabzgr0259 [place] [address]Dr. Airam Deuce MCH (RBC) [Entitic mass] 29.4 pg Normal 26.7-34.0 [facility] Comment on above: Performed By: #### C BC ####[facility] Dlqcbmeovr[address] [place], [place] [address]Dr. Airam Deuce MCHC (RBC) [Mass/Vol] 30.8 g/dL Normal 29.9-35.2 [facility] Comment on above: Performed By: #### C BC ####[facility] Rmfglqtcpo1367[address] [place], [place] [address]Dr. Airam Tripathi MCV (RBC) [Entitic vol] 95.4 fL Normal 81.0-99.0 [facility] Comment on above: Performed By: #### C BC ####[facility] Gmdynmaqhc67[address] [place], [place] [address]Dr. Airam Tripathi MONO # 0.3 103/ul Normal 0.3-0.8 [facility] Comment on above: Performed By: #### C BC ####[facility] Gtgsxqztpb[address] [place], [place] [address]Dr. Airam Tripathi Monocytes/100 WBC (Bld) 3.1 % Normal 1.7-12.0 [facility] Comment on above: Performed By: #### C BC ####[facility] Gusghpfvhp8[address] [place], [place] [address]Dr. Airam Tripathi NEUT # 7.0 103/ul Critically high 1.4-6.5 [facility] Comment on above: Performed By: #### C BC ####[facility] Fwdzohgfum5[address] [place], [place] [address]Dr. Airam Tripathi Neutrophils/100 WBC (Bld) 86.8 % Critically high 43.0-75.0 [facility] Comment on above: Performed By: #### C BC ####[facility] Evksknelvh[address] [place], [place] [address]Dr. Airam Tripathi Platelet mean volume (Bld) [Entitic vol] 8.3 fL Critically low 9.5-13.5 [facility] Comment on above: Performed By: #### C BC ####[facility] Amlubfgllz[address] [place] [address]Dr. Airam Tripathi PLT 279 103/ul Normal 150-450 [facility] Comment on above: Performed By: #### C BC ####[facility] Chutfqfwrp10[address] [place] [address]Dr. Airam Tripathi RBC 3.03 106/ul Critically low 4.20-5.40 [facility] Comment on above: Performed By: #### C BC ####[facility] Zapvjilfuv85[address] [place] [address]Dr. Airam Tripathi WBC 8.0 103/ul Normal 4.0-11.0 [facility] Comment on above: Performed By: #### C BC ####[facility] Xstsecjhap5[address] [place] [address]Dr. Airam Tripathi PROF 14(COMP METB)on 06-17- 022 Albumin [Mass/Vol] 2.8 g/dL Critically low 3.4-5.0 [facility] Comment on above: Performed By: #### B LARGE ENGINE ASSEMBLER, CMP ####[facility] Vokackniwu14[address] [place] [address]Dr. Airam Tripathi Albumin/Globulin [Mass ratio] 0.9 {ratio} Normal [facility] Comment on above: Performed By: #### B LARGE ENGINE ASSEMBLER, CMP ####[facility] Nuuqlqgktr[address] [place] [address]Dr. Airam Tripathi ALP [Catalytic activity/Vol] 136 U/L Critically high 46-116 [facility] Comment on above: Performed By: #### B LARGE ENGINE ASSEMBLER, CMP ####[facility] Xshzakgiyy7439 [place] [address]Dr. Airam Tripathi ALT [Catalytic activity/Vol] 17 U/L Normal 14-59 [facility] Comment on above: Performed By: #### B LARGE ENGINE ASSEMBLER, CMP ####[facility] Zhmwhlklen6788 [place] [address]Dr. Airam Tripathi Anion gap [Moles/Vol] 12.9 mmol/L Normal Th e [facility] Comment on above: Performed By: #### B LARGE ENGINE ASSEMBLER, CMP ####[facility] Jcoxwlrnyq7[address] [place], [place] [address]Dr. Airam Tripathi AST [Catalytic activity/Vol] 24 U/L Normal 15-37 [facility] Comment on above: Performed By: #### B LARGE ENGINE ASSEMBLER, CMP ####[facility] Pyruoyyjzf[address]01[address] [place], [place] [address]Dr. Airam Tripathi Bilirubin [Mass/Vol] 0.2 mg/dL Normal 0.2-1.0 [facility] Comment on above: Performed By: #### B LARGE ENGINE ASSEMBLER, CMP ####[facility] Nohsmlrado4730[address] [place], [place] [address]Dr. Airam Tripathi Calcium [Mass/Vol] 8.7 mg/dL Normal 8.5-10.1 [facility] Comment on above: Performed By: #### B LARGE ENGINE ASSEMBLER, CMP ####[facility] Ywjinfwjrf6[address] [place], [place] [address]Dr. Airam Tripathi Chloride [Moles/Vol] 102 mmol/L Normal 98-107 [facility] Comment on above: Performed By: #### B LARGE ENGINE ASSEMBLER, CMP ####[facility] Qgewwwporu8565[address] [place], [place] [address]Dr. Airam Tripathi CO2 [Moles/Vol] 23.8 mmol/L Normal 21.0-32.0 [facility] Comment on above: Performed By: #### B LARGE ENGINE ASSEMBLER, CMP ####[facility] Nmcgnozjya59[address] [place], [place] [address]Dr. Airam Tripathi Creatinine [Mass/Vol] 1.08 mg/dL Critically high 0.55-1.02 [facility] Comment on above: Performed By: #### B LARGE ENGINE ASSEMBLER, CMP ####[facility] Glhatqhmcx724[address] [place], [place] [address]Dr. Airam Tripathi EGFR-AF CYPRIOT >60 Normal >=60 [facility] Comment on above: Performed By: #### B LARGE ENGINE ASSEMBLER, CMP ####[facility] [address] [place] [id number]. Airam Tripathi EGFR-NON AF CYPRIOT 52 mL/min/1.73m2 Critically low >=60 [facility] Comment on above: Performed By: #### B LARGE ENGINE ASSEMBLER, CMP ####[facility] Gazagwwcvh[address] [place] [id number]. Airam Tripathi Globulin (S) [Mass/Vol] 3.2 g/dL Normal [facility] Comment on above: Performed By: #### B LARGE ENGINE ASSEMBLER, CMP ####[facility] Gulrospzxb[address] [place], [place] [address]Dr. Airam Tripathi Glucose [Mass/Vol] 99 mg/dL Normal 74-106 [facility] Comment on above: Performed By: #### B LARGE ENGINE ASSEMBLER, CMP ####[facility] Kcyuugjxjd095[address] [place], [place] [address]Dr. Airam Tripathi Potassium [Moles/Vol] 4.7 mmol/L Normal 3.5-5.1 [facility] Comment on above: Performed By: #### B LARGE ENGINE ASSEMBLER, CMP ####[facility] Kyfbidedal[address] [place], [place] [address]Dr. Airam Tripathi Protein [Mass/Vol] 6.0 g/dL Critically low 6.4-8.2 [facility] Comment on above: Performed By: #### B LARGE ENGINE ASSEMBLER, CMP ####[facility] Tcajgmpguz[address] [place], [place] [address]Dr. Airam Tripathi Sodium [Moles/Vol] 134 mmol/L Critically low 136-145 Th [facility] Comment on above: Performed By: #### B LARGE ENGINE ASSEMBLER, CMP ####[facility] Tisgnzrkeq3424[address] [place], [place] [address]Dr. Airam Tripathi Urea nitrogen [Mass/Vol] 19.0 mg/dL Critically high 7.0-18.0 [facility] Comment on above: Performed By: #### B LARGE ENGINE ASSEMBLER, CMP ####[facility] Hgcponyrou9094[address] [place], [place] [address]Dr. Airam Tripathi Urea nitrogen/Creatinine [Mass ratio] 17.6 mg/mg Normal [facility] Comment on above: Performed By: #### B LARGE ENGINE ASSEMBLER, CMP ####[facility] Douwemgfvu9[address] [place], [place] [address]Dr. Airam Deuce PROTIMEon 06-17-2022 INR Coag (PPP) [Relative time] 1.00 {INR} Normal [facility] Comment on above: Performed By: #### P T ####[facility] Uazssziajb[address] [place], [place] [address]Dr. Airam Tripathi INR GUIDELINES SEE BELOW Normal [facility] Comment on above: Result Comment: SIDRA RED INR: 2.0 - 3.0 CONDITIONS NOT LISTED BELOW 2.5 - 3.5 FOR PROSTHETIC HEART VALVE REPLACEMENT 2.5 - 3.5 RECURRENT THROMBOSIS Performed By: #### P T ####[facility] Qostwiaocu27[address] [place], [place] [address]Dr. Airam Tripathi PT Coag (PPP) [Time] 10.8 s Normal 9.0-11.6 [facility] Comment on above: Performed By: #### P T ####[facility] Kwqjlnmsge94[address] [place], [place] [address]Dr. Airam Tripathi PTTon 06-17-2022 aPTT Coag (Bld) [Time] 27.2 s Normal 22.3-36.2 Th [facility] Comment on above: Performed By: #### P TT ####[facility] Jrikzmaubx[address] [place], [place] [address]Dr. Airam Tripathi BNPon 06-16-2022 Natriuretic peptide B (Bld) [Mass/Vol] 2293.0 pg/mL Critically high <=900.0 [facility] Comment on above: Performed By: #### C MP, BNP ####[facility] [id number] [place], [place] [address]Dr. Airam Tripathi CBC AUTO DIFFon 06-16-2022 BASO # 0.0 103/ul Normal 0.0-0.1 [facility] Comment on above: Performed By: #### C BC ####[facility] [id number] [place], [place] [address]Dr. Airam Tripathi Basophils/100 WBC (Bld) 0.4 % Normal 0.2-2.0 [facility] Comment on above: Performed By: #### C BC ####[facility] [facility] Bicvxgipqi[address] [place], [place] [address]Dr. Airam Tripathi EO # 0.2 103/ul Normal 0.0-0.7 [facility] Comment on above: Performed By: #### C BC ####[facility] Wwdojcqcux[address] [place], [place] [address]Dr. Airam Tripathi Eosinophils/100 WBC (Bld) 3.0 % Normal 0.9-7.0 [facility] Comment on above: Performed By: #### C BC ####[facility] Goyseiqkvo[address] [place], [place] [address]Dr. Airam Tripathi Erythrocyte distribution width (RBC) [Ratio] 13.3 % Normal 11.0-15.0 [facility] Comment on above: Performed By: #### C BC ####[facility] Nfebxnpmte[address] [place], [place] [address]Dr. Airam Tripathi Hematocrit (Bld) [Volume fraction] 26.2 % Critically low 36.0-48.0 [facility] Comment on above: Performed By: #### C BC ####[facility] Ltvzjpeyfr[address] [place], [place] [address]Dr. Airam Tripathi Hemoglobin (Bld) [Mass/Vol] 8.3 g/dL Critically low 12.0-16.0 [facility] Comment on above: Performed By: #### C BC ####[facility] Rykimundpd[address] [place], [place] [address]Dr. Airam Tripathi IG # 0.08 10e3/ul Critically high 0.00-0.03 [facility] Comment on above: Performed By: #### C BC ####[facility] Crutnjaurx[address] [place], [place] [address]Dr. Airam Tripathi IG % 1.1 % Critically high 0.0-0.5 [facility] Comment on above: Performed By: #### C BC ####[facility] Ofjbhkrlmk[address] [place], [place] [address]DrKianna Tripathi LYMPH # 1.2 103/ul Normal 1.2-3.8 [facility] Comment on above: Performed By: #### C BC ####[facility] Yvagvyrxqd[address] [place] [address]DrKianna Selenaneil Tripathi Lymphocytes/100 WBC (Bld) 17.3 % Critically low 20.5-60.0 [facility] Comment on above: Performed By: #### C BC ####[facility] Exfmsqeieo[address] [place] [address]DrKianna Tripathi MANUAL DIFF REQ NO Normal [facility] Comment on above: Performed By: #### C BC ####[facility] Fnjtnmelcq6960 [place] [address]DrKianna Tripathi MCH (RBC) [Entitic mass] 30.3 pg Normal 26.7-34.0 [facility] Comment on above: Performed By: #### C BC ####[facility] Lxwkjolejh[address] [place], [place] [address]DrKianna Tripathi MCHC (RBC) [Mass/Vol] 31.7 g/dL Normal 29.9-35.2 [facility] Comment on above: Performed By: #### C BC ####[facility] Ixxheflajw69[address] [place], [place] [address]DrKianna Tripathi MCV (RBC) [Entitic vol] 95.6 fL Normal 81.0-99.0 [facility] Comment on above: Performed By: #### C BC ####[facility] Qvzfjsjveg[address] [place], [place] [address]DrKianna Tripathi MONO # 0.5 103/ul Normal 0.3-0.8 [facility] Comment on above: Performed By: #### C BC ####[facility] Mbdrvgqijj[address] [place], [place] [address]DrKianna Tripathi Monocytes/100 WBC (Bld) 7.1 % Normal 1.7-12.0 [facility] Comment on above: Performed By: #### C BC ####[facility] Euonuhkrcc[address] [place], [place] [address]DrKianna Tripathi NEUT # 5.0 103/ul Normal 1.4-6.5 [facility] Comment on above: Performed By: #### C BC ####[facility] Thabwscvmh[address] [place] [address]Dr. Airam Tripathi Neutrophils/100 WBC (Bld) 71.1 % Normal 43.0-75.0 [facility] Comment on above: Performed By: #### C BC ####[facility] Kuaqxbnkmh20[address] [place] [address]Dr. Airam Tripathi Platelet mean volume (Bld) [Entitic vol] 8.2 fL Critically low 9.5-13.5 [facility] Comment on above: Performed By: #### C BC ####[facility] Dxgtfadiay8538 [place] [address]Dr. Airam Tripathi PLT 247 103/ul Normal 150-450 [facility] Comment on above: Performed By: #### C BC ####[facility] Odqnoqqyrw5747 [place] [address]Dr. Airam Tripathi RBC 2.74 106/ul Critically low 4.20-5.40 [facility] Comment on above: Performed By: #### C BC ####[facility] Mcugxohdvq[address] [place], [place] [address]Dr. Airam Tripathi WBC 7.1 103/ul Normal 4.0-11.0 [facility] Comment on above: Performed By: #### C BC ####[facility] Qiylyorrmf[address] [place], [place] [address]Dr. Airam Tripathi CTA CHEST WO W CONon 022 CTA CHEST WO W CON Normal [facility] PROF 14(COMP METB)on 022 Albumin [Mass/Vol] 2.6 g/dL Critically low 3.4-5.0 Th e [facility] Comment on above: Performed By: #### C MP, BNP ####[facility] Fsoeftoogy[address] [place] [address]Dr. Airam Tripathi Albumin/Globulin [Mass ratio] 0.8 {ratio} Normal [facility] Comment on above: Performed By: #### C MP, BNP ####[facility] Gagspeihtz[address] [place] [id number]. Airam Tripathi ALP [Catalytic activity/Vol] 130 U/L Critically high 46-116 [facility] Comment on above: Performed By: #### C MP, BNP ####[facility] Pknpwjwuzw[address] [place], [place] [address]Dr. Airam Tripathi ALT [Catalytic activity/Vol] 12 U/L Critically low 14-59 [facility] Comment on above: Performed By: #### C MP, BNP ####[facility] Ueabizvand[address] [place], [place] [address]Dr. Airam Tripathi Anion gap [Moles/Vol] 11.8 mmol/L Normal [facility] Comment on above: Performed By: #### C MP, BNP ####[facility] Tispaxwexw052[address] [place], [place] [address]Dr. Airam Deuce AST [Catalytic activity/Vol] 22 U/L Normal 15-37 [facility] Comment on above: Performed By: #### C MP, BNP ####[facility] Rdukblmtwt037[address] [place], [place] [address]Dr. Airam Tripathi Bilirubin [Mass/Vol] 0.2 mg/dL Normal 0.2-1.0 [facility] Comment on above: Performed By: #### C MP, BNP ####[facility] Bloaukxgoz[address] [place], [place] [address]Dr. Airam Tripathi Calcium [Mass/Vol] 8.0 mg/dL Critically low 8.5-10.1 [facility] Comment on above: Performed By: #### C MP, BNP ####[facility] Kebyfthyiv64[address] [place] [address]Dr. Selenaneil Tripathi Chloride [Moles/Vol] 104 mmol/L Normal 98-107 [facility] Comment on above: Performed By: #### C MP, BNP ####[facility] Chjvtjentt[address] [place], [place] [address]Dr. Selenaneil Tripathi CO2 [Moles/Vol] 22.8 mmol/L Normal 21.0-32.0 [facility] Comment on above: Performed By: #### C MP, BNP ####[facility] Dhugqrrvvi18[address] [place] [address]Dr. Airam Tripathi Creatinine [Mass/Vol] 1.07 mg/dL Critically high 0.55-1.02 [facility] Comment on above: Performed By: #### C MP, BNP ####[facility] Kgcyrcshag24[address] [place] [address]Dr. Airam Tripathi EGFR-AF CYPRIOT >60 Normal >=60 [facility] Comment on above: Performed By: #### C MP, BNP ####[facility] Dhtbfpvvuw1454 [place] [address]Dr. Airam Tripathi EGFR-NON AF CYPRIOT 52 mL/min/1.73m2 Critically low >=60 [facility] Comment on above: Performed By: #### C MP, BNP ####[facility] Ecckikmaei[address] [place], [place] [address]Dr. Airam Tripathi Globulin (S) [Mass/Vol] 3.1 g/dL Normal [facility] Comment on above: Performed By: #### C MP, BNP ####[facility] Ptbmiwmvpy6144[address] [place], [place] [address]Dr. Airam Tripathi Glucose [Mass/Vol] 85 mg/dL Normal 74-106 [facility] Comment on above: Performed By: #### C MP, BNP ####[facility] Xvhdyfosio9906[address] [place], [place] [address]Dr. Airam Tripathi Potassium [Moles/Vol] 4.6 mmol/L Normal 3.5-5.1 [facility] Comment on above: Performed By: #### C MP, BNP ####[facility] Decodbmzez28[address] [place] [address]Dr. Airam Tripathi Protein [Mass/Vol] 5.7 g/dL Critically low 6.4-8.2 [facility] Comment on above: Performed By: #### C MP, BNP ####[facility] Qutluaxobc[address] [place], [place] [address]Dr. Selenaneil Tripathi Sodium [Moles/Vol] 134 mmol/L Critically low 136-145 [facility] Comment on above: Performed By: #### C MP, BNP ####[facility] Cfjfwsuxja65[address] [place], [place] [address]Dr. Airam Tripathi Urea nitrogen [Mass/Vol] 24.0 mg/dL Critically high 7.0-18.0 [facility] Comment on above: Performed By: #### C MP, BNP ####[facility] Anjsbvhtdq7176[address] [place], [place] [address]Dr. Airam Tripathi Urea nitrogen/Creatinine [Mass ratio] 22.4 mg/mg Normal [facility] Comment on above: Performed By: #### C MP, BNP ####[facility] Rxbexugsny39[address] [place], [place] [address]Dr. Airam Tripathi BNPon 06-15-2022 Natriuretic peptide B (Bld) [Mass/Vol] 934.0 pg/mL Critically high <=900.0 [facility] Comment on above: Performed By: #### C MP, BNP ####[facility] Yxkmakkokq4[address] [place], [place] [address]Dr. Airam Tripathi CBC AUTO DIFFon 06-15-2022 BASO # 0.0 103/ul Normal 0.0-0.1 [facility] Comment on above: Performed By: #### C BC ####[facility] Lmxifexcmq7425[address] [place], [place] [address]Dr. Airam Deuce Basophils/100 WBC (Bld) 0.2 % Normal 0.2-2.0 [facility] Comment on above: Performed By: #### C BC ####[facility] Kfoqpgtivl72[address] [place], [place] [address]Dr. Airam Tripathi EO # 0.1 103/ul Normal 0.0-0.7 [facility] Comment on above: Performed By: #### C BC ####[facility] Bivkdiasmi[address] [place], [place] [address]Dr. Airam Deuce Eosinophils/100 WBC (Bld) 2.1 % Normal 0.9-7.0 [facility] Comment on above: Performed By: #### C BC ####[facility] Kvgrnmgyas4[address] [place], [place] [address]Dr. Selenaneil Tripathi Erythrocyte distribution width (RBC) [Ratio] 12.9 % Normal 11.0-15.0 [facility] Comment on above: Performed By: #### C BC ####[facility] Ilggkbigqf47[address] [place] [address]Dr. Airam Deuce Hematocrit (Bld) [Volume fraction] 24.9 % Critically low 36.0-48.0 [facility] Comment on above: Performed By: #### C BC ####[facility] Hxssageyan9[address] [place], [place] [address]Dr. Airam Tripathi Hemoglobin (Bld) [Mass/Vol] 7.9 g/dL Critically low 12.0-16.0 [facility] Comment on above: Performed By: #### C BC ####[facility] Mcsrkaehhz00[address] [place], [place] [address]Dr. Airam Tripathi IG # 0.05 10e3/ul Critically high 0.00-0.03 [facility] Comment on above: Performed By: #### C BC ####[facility] Thyvxhkusb7739[address] [place], [place] [address]Dr. Airam Tripathi IG % 0.8 % Critically high 0.0-0.5 [facility] Comment on above: Performed By: #### C BC ####[facility] Oikmaksrcc[address] [place], [place] [address]Dr. Airam Tripathi LYMPH # 0.9 103/ul Critically low 1.2-3.8 [facility] Comment on above: Performed By: #### C BC ####[facility] Ninkqttgyf[address] [place], [place] [address]Dr. Airam Tripathi Lymphocytes/100 WBC (Bld) 13.7 % Critically low 20.5-60.0 [facility] Comment on above: Performed By: #### C BC ####[facility] Ixgubqafas[address] [place], [place] [address]Dr. Airam Tripathi MANUAL DIFF REQ NO Normal [facility] Comment on above: Performed By: #### C BC ####[facility] Ncjjpaujko8[address] [place], [place] [address]Dr. Airam Tripathi MCH (RBC) [Entitic mass] 30.2 pg Normal 26.7-34.0 [facility] Comment on above: Performed By: #### C BC ####[facility] Clqxgjjlgp3484 [place] [address]Dr. Airam Tripathi MCHC (RBC) [Mass/Vol] 31.7 g/dL Normal 29.9-35.2 [facility] Comment on above: Performed By: #### C BC ####[facility] Qnaqkvdzyy13[address] [place] [address]Dr. Airam Tripathi MCV (RBC) [Entitic vol] 95.0 fL Normal 81.0-99.0 [facility] Comment on above: Performed By: #### C BC ####[facility] Hfmiafofeo24[address] [place] [address]Dr. Airam Tripathi MONO # 0.4 103/ul Normal 0.3-0.8 [facility] Comment on above: Performed By: #### C BC ####[facility] Jqhutyfmud5460 [place] [address]Dr. Airam Deuce Monocytes/100 WBC (Bld) 6.7 % Normal 1.7-12.0 [facility] Comment on above: Performed By: #### C BC ####[facility] Teyxpacdbn[address] [place], [place] [address]Dr. Airam Tripathi NEUT # 5.0 103/ul Normal 1.4-6.5 [facility] Comment on above: Performed By: #### C BC ####[facility] Kqkrtessyg5627 [place] [address]Dr. Airam Deuce Neutrophils/100 WBC (Bld) 76.5 % Critically high 43.0-75.0 [facility] Comment on above: Performed By: #### C BC ####[facility] Agmobremfv6266 [place] [address]Dr. Airam Deuce Platelet mean volume (Bld) [Entitic vol] 8.4 fL Critically low 9.5-13.5 [facility] Comment on above: Performed By: #### C BC ####[facility] Pbhpxiozax6079 [place] [address]Dr. Airam Tripathi PLT 202 103/ul Normal 150-450 [facility] Comment on above: Performed By: #### C BC ####[facility] Yncnzdblxv1235 [place] [address]Dr. Airam Tripathi RBC 2.62 106/ul Critically low 4.20-5.40 [facility] Comment on above: Performed By: #### C BC ####[facility] Jjkfpsukfq1237 [place] [address]Dr. Airam Tripathi WBC 6.6 103/ul Normal 4.0-11.0 [facility] Comment on above: Performed By: #### C BC ####[facility] Kizcatdhkh[address] [place] [address]Dr. Airam Deuce OSMOLALITYon 06-15-2022 Osmolality [Osmolality] 269 mosm/kg Critically low 275-295 [facility] Comment on above: Performed By: #### O SMO ####[facility] Gndjwyrpfz[address] [place], [place] [address]Dr. Airam Tripathi PROF 14(COMP METB)on 022 Albumin [Mass/Vol] 2.5 g/dL Critically low 3.4-5.0 [facility] Comment on above: Performed By: #### C MP, BNP ####[facility] Xjnykuhqjz3493 [place] [address]Dr. Airam Tripathi Albumin/Globulin [Mass ratio] 0.9 {ratio} Normal [facility] Comment on above: Performed By: #### C MP, BNP ####[facility] Uulducrokp2993 [place] [address]Dr. Airam Tripathi ALP [Catalytic activity/Vol] 128 U/L Critically high 46-116 [facility] Comment on above: Performed By: #### C MP, BNP ####[facility] Faqstodvvu4111 [place] [address]Dr. Airam Tripathi ALT [Catalytic activity/Vol] 14 U/L Normal 14-59 [facility] Comment on above: Performed By: #### C MP, BNP ####[facility] Agugwisdfo6252 [place] [address]Dr. Airam Tripathi Anion gap [Moles/Vol] 10.4 mmol/L Normal [facility] Comment on above: Performed By: #### C MP, BNP ####[facility] Lbwmuvfxni[address] [place], [place] [address]Dr. Airam Tripathi AST [Catalytic activity/Vol] 23 U/L Normal 15-37 [facility] Comment on above: Performed By: #### C MP, BNP ####[facility] Hrthtwqcqx67[address] [place], [place] [address]Dr. Aiarm Tripathi Bilirubin [Mass/Vol] 0.2 mg/dL Normal 0.2-1.0 [facility] Comment on above: Performed By: #### C MP, BNP ####[facility] Rctdmwuzih0634[address] [place], [place] [address]Dr. Airam Tripathi Calcium [Mass/Vol] 7.4 mg/dL Critically low 8.5-10.1 [facility] Comment on above: Performed By: #### C MP, BNP ####[facility] Uvaqtdufju9[address] [place], [place] [address]Dr. Airam Tripathi Chloride [Moles/Vol] 99 mmol/L Normal 98-107 [facility] Comment on above: Performed By: #### C MP, BNP ####[facility] T[address]zlztzdwv[address] [place], [place] [address]Dr. Airam Tripathi CO2 [Moles/Vol] 24.1 mmol/L Normal 21.0-32.0 [facility] Comment on above: Performed By: #### C MP, BNP ####[facility] Emtrjwjhzg7240[address] [place], [place] [address]Dr. Airam Tripathi Creatinine [Mass/Vol] 1.45 mg/dL Critically high 0.55-1.02 [facility] Comment on above: Performed By: #### C MP, BNP ####[facility] Azzhymgqld8[address] [place], [place] [address]Dr. Airam Tripathi EGFR-AF CYPRIOT 45 mL/min/1.73m2 Critically low >=60 [facility] Comment on above: Performed By: #### C MP, BNP ####[facility] Twtsgwrxeg8424 [place] [address]Dr. Airam Tripathi EGFR-NON AF CYPRIOT 37 mL/min/1.73m2 Critically low >=60 [facility] Comment on above: Performed By: #### C MP, BNP ####[facility] Vfhyzzjcpd9981 [place] [address]Dr. Airam Tripathi Globulin (S) [Mass/Vol] 2.8 g/dL Normal [facility] Comment on above: Performed By: #### C MP, BNP ####[facility] Jrryztkbxq5537 [place] [address]Dr. Airam Tripathi Glucose [Mass/Vol] 82 mg/dL Normal 74-106 [facility] Comment on above: Performed By: #### C MP, BNP ####[facility] Bcyqqmexem45[address] [place], [place] [address]Dr. Airam Tripathi Potassium [Moles/Vol] 4.5 mmol/L Normal 3.5-5.1 [facility] Comment on above: Performed By: #### C MP, BNP ####[facility] Priotyrcbw6050[address] [place], [place] [address]Dr. Airam Tripathi Protein [Mass/Vol] 5.3 g/dL Critically low 6.4-8.2 [facility] Comment on above: Performed By: #### C MP, BNP ####[facility] Vptldhmrnr[address] [place], [place] [address]Dr. Airam Tripathi Sodium [Moles/Vol] 129 mmol/L Critically low 136-145 [facility] Comment on above: Performed By: #### C MP, BNP ####[facility] Amyqfumalu[address] [place], [place] [address]Dr. Airam Tripathi Urea nitrogen [Mass/Vol] 35.0 mg/dL Critically high 7.0-18.0 [facility] Comment on above: Performed By: #### C MP, BNP ####[facility] Cmgxbvhwtg[address] [place], [place] [address]Dr. Airam Tripathi Urea nitrogen/Creatinine [Mass ratio] 24.1 mg/mg Normal [facility] Comment on above: Performed By: #### C MP, BNP ####[facility] Oipgdslcid4197 [place] [address]Dr. Airam Tripathi T3, TOTAL (TRIIODOTHYRONINE) on 06-15-2022 T3, TOTAL 113 ng/dL Normal 71-180 [facility] Comment on above: Performed By: #### T 3TOTAL ####[facility] Fvhvjhoqju6[address] [place], [place] [address]Dr. Airam Tripathi BNPon 06-14-2022 Natriuretic peptide B (Bld) [Mass/Vol] 1024.0 pg/mL Critically high <=900.0 [facility] Comment on above: Performed By: #### B LARGE ENGINE ASSEMBLER, CMP ####[facility] Vhrffbryox[address] [place], [place] [address]Dr. Airam Tripathi CARDIAC CONSUELO 3-6on 2 CK [Catalytic activity/Vol] 116 U/L Normal 26-192 [facility] Comment on above: Performed By: #### C MREP ####[facility] Sqzyvmytwk356[address] [place], [place] [address]Dr. Airam Tripathi CK.MB [Mass/Vol] ng/mL Normal <=3.60 [facility] Comment on above: Performed By: #### C MREP ####[facility] Mejkpbblby[address] [place], [place] [address]Dr. Airam Tripathi HSTROP 6.0 pg/mL Normal 4.0-51.3 [facility] Comment on above: Result Comment: CUT- OFF POINTS HAVE BEEN ESTABLISHED BASED ON THE FOURTH UNIVERSAL DEFINITIONS OF MYOCARDIALINFARCTION. THE UPPER REFERENCE LIMIT (URL) OF TROPONIN, DEFINED THE 99TH PERCENTILE OFcTnI DISTRIBUTION IN A REFERENCE POPULATION, HAS BEEN CONFIRMED THE DECISION THRESHOLDFOR HI DIAGNOSIS. Performed By: #### C MREP ####[facility] Iugefprebp[address] [place], [place] [address]Dr. Airam Tripathi CBC AUTO DIFFon 06-14-2022 BASO # 0.0 103/ul Normal 0.0-0.1 [facility] Comment on above: Performed By: #### C BC ####[facility] Scmurdgfqb4072 [place] [id number]. Airam Tripathi Basophils/100 WBC (Bld) 0.3 % Normal 0.2-2.0 [facility] Comment on above: Performed By: #### C BC ####[facility] Aouupnougy646[address] [place], [place] [address]Dr. Airam Tripathi EO # 0.2 103/ul Normal 0.0-0.7 [facility] Comment on above: Performed By: #### C BC ####[facility] Zgnjghftur[address] [place], [place] [address]Dr. Airam Tripathi Eosinophils/100 WBC (Bld) 2.0 % Normal 0.9-7.0 [facility] Comment on above: Performed By: #### C BC ####[facility] Npywjmxuvz4[address] [place], [place] [address]Dr. Airam Tripathi Erythrocyte distribution width (RBC) [Ratio] 12.8 % Normal 11.0-15.0 [facility] Comment on above: Performed By: #### C BC ####[facility] Odwmqqrqqc[address] [place], [place] [address]Dr. Airam Tripathi Hematocrit (Bld) [Volume fraction] 27.4 % Critically low 36.0-48.0 [facility] Comment on above: Performed By: #### C BC ####[facility] Wqldigizvv[address] [place], [place] [address]Dr. Airam Tripathi Hemoglobin (Bld) [Mass/Vol] 8.7 g/dL Critically low 12.0-16.0 [facility] Comment on above: Performed By: #### C BC ####[facility] Fjykncpxha[address] [place], [place] [address]Dr. Airam Tripathi IG # 0.11 10e3/ul Critically high 0.00-0.03 [facility] Comment on above: Performed By: #### C BC ####[facility] Tswotizigg[address] [place], [place] [address]Dr. Airam Tripathi IG % 1.1 % Critically high 0.0-0.5 [facility] Comment on above: Performed By: #### C BC ####[facility] Tkdvvwecaw7587 [place] [id number]. Airam Tripathi LYMPH # 0.9 103/ul Critically low 1.2-3.8 [facility] Comment on above: Performed By: #### C BC ####[facility] Zzzzsbjovk12[address] [place] [id number]. Airam Tripathi Lymphocytes/100 WBC (Bld) 9.7 % Critically low 20.5-60.0 [facility] Comment on above: Performed By: #### C BC ####[facility] Txxcczhkix64[address] [place], [place] [address]Dr. Airam Tripathi MANUAL DIFF REQ NO Normal [facility] Comment on above: Performed By: #### C BC ####[facility] Pmyqqvhujk9[address] [place], [place] [address]Dr. Airam Tripathi MCH (RBC) [Entitic mass] 30.0 pg Normal 26.7-34.0 [facility] Comment on above: Performed By: #### C BC ####[facility] [id number] [place], [place] [address]Dr. Airam Tripathi MCHC (RBC) [Mass/Vol] 31.8 g/dL Normal 29.9-35.2 [facility] Comment on above: Performed By: #### C BC ####[facility] [id number] [place], [place] [address]Dr. Airam Tripathi MCV (RBC) [Entitic vol] 94.5 fL Normal 81.0-99.0 [facility] Comment on above: Performed By: #### C BC ####[facility] U[address]xr[address] [place], [place] [address]Dr. Airam Tripathi MONO # 0.6 103/ul Normal 0.3-0.8 [facility] Comment on above: Performed By: #### C BC ####[facility] Icbejuocni30[address] [place] [id number]. Airam Tripathi Monocytes/100 WBC (Bld) 5.7 % Normal 1.7-12.0 [facility] Comment on above: Performed By: #### C BC ####[facility] Xlorrxhmai[address] [place] [address]Dr. Airam Tripathi NEUT # 7.8 103/ul Critically high 1.4-6.5 [facility] Comment on above: Performed By: #### C BC ####[facility] Unjqzkmlbp67[address] [place] [address]Dr. Airam Tripathi Neutrophils/100 WBC (Bld) 81.2 % Critically high 43.0-75.0 [facility] Comment on above: Performed By: #### C BC ####[facility] Naoglsvkcy3268 [place] [address]Dr. Airam Tripathi Platelet mean volume (Bld) [Entitic vol] 8.6 fL Critically low 9.5-13.5 [facility] Comment on above: Performed By: #### C BC ####[facility] Hhckerljmv17[address] [place] [address]Dr. Airam Tripathi PLT 283 103/ul Normal 150-450 [facility] Comment on above: Performed By: #### C BC ####[facility] Pfghvbqjob[address] [place], [place] [address]Dr. Airam Tripathi RBC 2.90 106/ul Critically low 4.20-5.40 [facility] Comment on above: Performed By: #### C BC ####[facility] Plngieohvm3086 [place] [address]Dr. Airam Tripathi WBC 9.6 103/ul Normal 4.0-11.0 [facility] Comment on above: Performed By: #### C BC ####[facility] Dfrxjukktv38[address] [place] [address]DrKianna Airam Tripathi OSMOLALITYon 06-14-2022 Osmolality [Osmolality] 273 mosm/kg Critically low 275-295 [facility] Comment on above: Performed By: #### O SMO ####[facility] Crlkbjcdnk2339 [place] [address]DrKianna Tripathi PROF 14(COMP METB)on 022 Albumin [Mass/Vol] 3.2 g/dL Critically low 3.4-5.0 [facility] Comment on above: Performed By: #### B LARGE ENGINE ASSEMBLER, CMP ####[facility] Evvezrxsdd4[address] [place] [address]Dr. Airam Tripathi Albumin/Globulin [Mass ratio] 1.0 {ratio} Normal [facility] Comment on above: Performed By: #### B LARGE ENGINE ASSEMBLER, CMP ####[facility] Djhyqkmbjp4577 [place] [id number]. Airam Tripathi ALP [Catalytic activity/Vol] 154 U/L Critically high 46-116 [facility] Comment on above: Performed By: #### B LARGE ENGINE ASSEMBLER, CMP ####[facility] Mpuyidoxiu[address] [place] [address]Dr. Airam Tripathi ALT [Catalytic activity/Vol] 17 U/L Normal 14-59 [facility] Comment on above: Performed By: #### B LARGE ENGINE ASSEMBLER, CMP ####[facility] Bpbgkadtyv0375 [place] [address]Dr. Airam Tripathi Anion gap [Moles/Vol] 12.0 mmol/L Normal [facility] Comment on above: Performed By: #### B LARGE ENGINE ASSEMBLER, CMP ####[facility] Bytejgfabq9472 [place] [address]Dr. Airam Tripathi AST [Catalytic activity/Vol] 25 U/L Normal 15-37 [facility] Comment on above: Performed By: #### B LARGE ENGINE ASSEMBLER, CMP ####[facility] Ojgdxwsbgu1921 [place] [address]Dr. Airam Tripathi Bilirubin [Mass/Vol] 0.3 mg/dL Normal 0.2-1.0 [facility] Comment on above: Performed By: #### B LARGE ENGINE ASSEMBLER, CMP ####[facility] Ennirlxyvl7553 [place] [id number]. Airam Tripathi Calcium [Mass/Vol] 7.6 mg/dL Critically low 8.5-10.1 [facility] Comment on above: Performed By: #### B LARGE ENGINE ASSEMBLER, CMP ####[facility] Igxhbqgtpq8971 [place] [address]Dr. Airam Tripathi Chloride [Moles/Vol] 92 mmol/L Critically low 98-107 [facility] Comment on above: Performed By: #### B LARGE ENGINE ASSEMBLER, CMP ####[facility] Utuvnoqesi[address] [place], [place] [address]Dr. Airam Tripathi CO2 [Moles/Vol] 25.2 mmol/L Normal 21.0-32.0 [facility] Comment on above: Performed By: #### B LARGE ENGINE ASSEMBLER, CMP ####[facility] Qgelvgrwgl[address] [place], [place] [address]Dr. Airam Tripathi Creatinine [Mass/Vol] 1.83 mg/dL Critically high 0.55-1.02 [facility] Comment on above: Performed By: #### B LARGE ENGINE ASSEMBLER, CMP ####[facility] Nehermtses[address] [place], [place] [address]Dr. Airam Tripathi EGFR-AF CYPRIOT 34 mL/min/1.73m2 Critically low >=60 [facility] Comment on above: Performed By: #### B LARGE ENGINE ASSEMBLER, CMP ####[facility] Ivfwsmpfmv8[address] [place], [place] [address]Dr. Airam Tripathi EGFR-NON AF CYPRIOT 28 mL/min/1.73m2 Critically low >=60 [facility] Comment on above: Performed By: #### B LARGE ENGINE ASSEMBLER, CMP ####[facility] Shpgsdlghy[address] [place], [place] [address]Dr. Airam Tripathi Globulin (S) [Mass/Vol] 3.1 g/dL Normal [facility] Comment on above: Performed By: #### B LARGE ENGINE ASSEMBLER, CMP ####[facility] Yofzhwnxjb1159[address] [place], [place] [address]Dr. Airam Tripathi Glucose [Mass/Vol] 77 mg/dL Normal 74-106 [facility] Comment on above: Performed By: #### B LARGE ENGINE ASSEMBLER, CMP ####[facility] Vmczhnibom[address] [place], [place] [address]Dr. Airam Tripathi Potassium [Moles/Vol] 4.2 mmol/L Normal 3.5-5.1 [facility] Comment on above: Performed By: #### B LARGE ENGINE ASSEMBLER, CMP ####[facility] Orleffxghg[address] [place], [place] [address]Dr. Airam Tripathi Protein [Mass/Vol] 6.3 g/dL Critically low 6.4-8.2 [facility] Comment on above: Performed By: #### B LARGE ENGINE ASSEMBLER, CMP ####[facility] Ihsueiivmm367[address] [place], [place] [address]Dr. Airam Tripathi Sodium [Moles/Vol] 125 mmol/L Critically low 136-145 [facility] Comment on above: Performed By: #### B LARGE ENGINE ASSEMBLER, CMP ####[facility] Nvobghmomy27[address] [place], [place] [address]Dr. Airam Tripathi Urea nitrogen [Mass/Vol] 35.0 mg/dL Critically high 7.0-18.0 [facility] Comment on above: Performed By: #### B LARGE ENGINE ASSEMBLER, CMP ####[facility] Rrukpytxwt[address] [place], [place] [address]Dr. Airam Tripathi Urea nitrogen/Creatinine [Mass ratio] 19.1 mg/mg Normal [facility] Comment on above: Performed By: #### B LARGE ENGINE ASSEMBLER, CMP ####[facility] Etomovgzgx[address] [place], [place] [address]Dr. Airam Tripathi UA RANDOM W/MICROSCOPICon BACTERIA TRACE Abnormal NONE SEEN [facility] Comment on above: Performed By: #### U AMIC ####[facility] Fgvbtwufel[address] [place], [place] [address]Dr. Airam Tripathi Bilirubin Ql (U) Negative Normal NEGATIVE [facility] Comment on above: Performed By: #### U AMIC ####[facility] Oipzrrvlow[address] [place], [place] [address]Dr. Airam Tripathi CAST NONE SEEN Normal NONE SEEN [facility] Comment on above: Performed By: #### U AMIC ####[facility] Bkplhxjmjb[address] [place], [place] [address]Dr. Airam Tripathi Clarity (U) CLEAR Normal CLEAR [facility] Comment on above: Performed By: #### U AMIC ####[facility] Aphcciosyk1507 [place] [address]Dr. Airam Tripathi Color (U) LT. YELLOW Normal YELLOW [facility] Comment on above: Performed By: #### U AMIC ####[facility] Eepunqnwhu9411 [place] [address]Dr. Airam Deuce Crystals LM Nom (Urine sed) NONE SEEN Normal NONE SEEN [facility] Comment on above: Performed By: #### U AMIC ####[facility] Kflbhtmhph7405 [place] [address]Dr. Selenaneil Tripathi Epithelial cells LM Ql (Urine sed) FEW Abnormal NONE SEEN /RARE [facility] Comment on above: Performed By: #### U AMIC ####[facility] Vvsyybvmcc0208 [place] [address]Dr. Ariam Tripathi Glucose Ql (U) Negative Normal NEGATIVE [facility] Comment on above: Performed By: #### U AMIC ####[facility] Jycgvpdmvh329[address] [place], [place] [address]Dr. Selenaneil Tripathi Hemoglobin Ql (U) Negative Normal NEGATIVE [facility] Comment on above: Performed By: #### U AMIC ####[facility] Asksebwxnl478[address] [place], [place] [address]Dr. Airam Tripathi Ketones Ql (U) Negative Normal NEGATIVE [facility] Comment on above: Performed By: #### U AMIC ####[facility] Chskqfmxwy[address] [place], [place] [address]Dr. Selenalan Deuce LEUKOCYTES MODERATE Abnormal NEGATIVE [facility] Comment on above: Performed By: #### U AMIC ####[facility] Dogvrfybbf24[address] [place], [place] [address]Dr. Selenalan Tripathi MUCOUS NONE SEEN Normal NONE SEEN [facility] Comment on above: Performed By: #### U AMIC ####[facility] Lianomotaj[address] [place], [place] [address]Dr. Airam Tripathi Nitrite Ql (U) Negative Normal NEGATIVE [facility] Comment on above: Performed By: #### U AMIC ####[facility] Iufjbthirr7[address] [place], [place] [address]Dr. Airam Tripathi pH (U) 5.5 [pH] Normal 5-9 [facility] Comment on above: Performed By: #### U AMIC ####[facility] Zpswxbwxjc6889 [place] [address]Dr. Airam Tripathi RBC 0-2 Normal 0-2 [facility] Comment on above: Performed By: #### U AMIC ####[facility] Xcbxrciigu1080 [place] [address]Dr. Airam Tripathi SPEC GRAVITY 1.020 Normal 1.005-<=1.02 5 [facility] Comment on above: Performed By: #### U AMIC ####[facility] Fhafyaferc7812 [place] [address]Dr. Airam Tripathi UA PROTEIN Negative Normal NEGATIVE/ TRACE [facility] Comment on above: Performed By: #### U AMIC ####[facility] Evycbfgihf4747 [place] [address]Dr. Airam Tripathi Urobilinogen Qn (U) 0.2 {Ligia'U}/dL Normal 0.2 - 1. 0 [facility] Comment on above: Performed By: #### U AMIC ####[facility] Xnzpacyqvk6[address] [place], [place] [address]Dr. Airam Tripathi WBC 5-10 Abnormal NONE SEEN [facility] Comment on above: Performed By: #### U AMIC ####[facility] Ubsjcuoxyx[address] [place], [place] [address]Dr. Airam Tripathi BNPon 06-13-2022 Natriuretic peptide B (Bld) [Mass/Vol] 1496.0 pg/mL Critically high <=900.0 [facility] Comment on above: Performed By: #### T 4, BNP, MG, TSH, CMADM, CRP, CMP ####[facility] Yohckjsjvz[address] [place], [place] [address]Dr. Airam Tripathi CARDIAC CONSUELO 3-6on 2 CK [Catalytic activity/Vol] 125 U/L Normal 26-192 [facility] Comment on above: Performed By: #### C MREP ####[facility] Aiqtjyaptf[address] [place], [place] [address]Dr. Airam Tripathi CK.MB [Mass/Vol] ng/mL Normal <=3.60 [facility] Comment on above: Performed By: #### C MREP ####[facility] Zknvwjmeky0205 [place] [address]Dr. Airam Tripathi HSTROP 5.8 pg/mL Normal 4.0-51.3 [facility] Comment on above: Result Comment: CUT- OFF POINTS HAVE BEEN ESTABLISHED BASED ON THE FOURTH UNIVERSAL DEFINITIONS OF MYOCARDIALINFARCTION. THE UPPER REFERENCE LIMIT (URL) OF TROPONIN, DEFINED THE 99TH PERCENTILE OFcTnI DISTRIBUTION IN A REFERENCE POPULATION, HAS BEEN CONFIRMED THE DECISION THRESHOLDFOR HI DIAGNOSIS. Performed By: #### C MREP ####[facility] Pqhihtgaiu4200 [place] [address]Dr. Airam Deuce CARDIAC CONSUELO ADMITon 022 CK [Catalytic activity/Vol] 121 U/L Normal 26-192 [facility] Comment on above: Performed By: #### T 4, BNP, MG, TSH, CMADM, CRP, CMP ####[facility] Yhqngamqic2471 [place] [address]Dr. Airam Deuce CK.MB [Mass/Vol] 3.06 ng/mL Normal <=3.60 [facility] Comment on above: Performed By: #### T 4, BNP, MG, TSH, CMADM, CRP, CMP ####[facility] Eisdqjsvrs4589 [place] [address]Dr. Airam Tripathi HSTROP 6.9 pg/mL Normal 4.0-51.3 [facility] Comment on above: Result Comment: CUT- OFF POINTS HAVE BEEN ESTABLISHED BASED ON THE FOURTH UNIVERSAL DEFINITIONS OF MYOCARDIALINFARCTION. THE UPPER REFERENCE LIMIT (URL) OF TROPONIN, DEFINED THE 99TH PERCENTILE OFcTnI DISTRIBUTION IN A REFERENCE POPULATION, HAS BEEN CONFIRMED THE DECISION THRESHOLDFOR HI DIAGNOSIS. Performed By: #### T 4, BNP, MG, TSH, CMADM, CRP, CMP ####[facility] Licrdbhnvl0552 [place] [address]Dr. Airam Tripathi KATHY 124 ng/mL Critically high 9-82 [facility] Comment on above: Performed By: #### T 4, BNP, MG, TSH, CMADM, CRP, CMP ####[facility] Gyawconrlp7975 [place] [id number]. Airam Deuce CBC AUTO DIFFon 06-13-2022 BASO # 0.0 103/ul Normal 0.0-0.1 [facility] Comment on above: Performed By: #### C BC ####[facility] Ofbzckizrs6172 [place] [address]Dr. Airam Tripathi Basophils/100 WBC (Bld) 0.2 % Normal 0.2-2.0 [facility] Comment on above: Performed By: #### C BC ####[facility] Ldupyfjbpc[address] [place], [place] [address]Dr. Airam Tripathi EO # 0.2 103/ul Normal 0.0-0.7 [facility] Comment on above: Performed By: #### C BC ####[facility] Yaomdoyhsh[address] [place], [place] [address]Dr. Airam Tripathi Eosinophils/100 WBC (Bld) 1.5 % Normal 0.9-7.0 [facility] Comment on above: Performed By: #### C BC ####[facility] Rdbswonzhl377[address] [place], [place] [address]Dr. Selenaneil Tripathi Erythrocyte distribution width (RBC) [Ratio] 12.7 % Normal 11.0-15.0 [facility] Comment on above: Performed By: #### C BC ####[facility] Szahdfogex[address] [place], [place] [address]Dr. Airam Tripathi Hematocrit (Bld) [Volume fraction] 30.0 % Critically low 36.0-48.0 [facility] Comment on above: Performed By: #### C BC ####[facility] Ftjuwlloki[address] [place], [place] [address]Dr. Airam Tripathi Hemoglobin (Bld) [Mass/Vol] 9.6 g/dL Critically low 12.0-16.0 [facility] Comment on above: Performed By: #### C BC ####[facility] Fddsmzmsjv[address] [place], [place] [address]Dr. Airam Tripathi IG # 0.11 10e3/ul Critically high 0.00-0.03 [facility] Comment on above: Performed By: #### C BC ####[facility] Aorzbrvgsm9[address] [place] [address]Dr. Airam Tripathi IG % 1.1 % Critically high 0.0-0.5 [facility] Comment on above: Performed By: #### C BC ####[facility] Chtriwsygs7968 [place] [id number]. Airam Tripathi LYMPH # 1.5 103/ul Normal 1.2-3.8 [facility] Comment on above: Performed By: #### C BC ####[facility] Jbrljuzvzl3220 [place] [address]Dr. Airam Deuce Lymphocytes/100 WBC (Bld) 14.9 % Critically low 20.5-60.0 [facility] Comment on above: Performed By: #### C BC ####[facility] Stdpboocdz[address] [place], [place] [address]Dr. Selenaneil Tripathi MANUAL DIFF REQ NO Normal [facility] Comment on above: Performed By: #### C BC ####[facility] Jxmajygtlh74[address] [place], [place] [address]Dr. Airam Tripathi MCH (RBC) [Entitic mass] 30.0 pg Normal 26.7-34.0 [facility] Comment on above: Performed By: #### C BC ####[facility] Pcckkwpvmw3750 [place] [address]Dr. Airam Tripathi MCHC (RBC) [Mass/Vol] 32.0 g/dL Normal 29.9-35.2 [facility] Comment on above: Performed By: #### C BC ####[facility] Nusssscvbk[address] [place], [place] [address]Dr. Airam Tripathi MCV (RBC) [Entitic vol] 93.8 fL Normal 81.0-99.0 [facility] Comment on above: Performed By: #### C BC ####[facility] Jzjktdzaqv[address] [place], [place] [address]Dr. Airam Deuce MONO # 0.8 103/ul Normal 0.3-0.8 [facility] Comment on above: Performed By: #### C BC ####[facility] Ihvgmfeonz7630 [place] [id number]. Airam Tripathi Monocytes/100 WBC (Bld) 7.3 % Normal 1.7-12.0 [facility] Comment on above: Performed By: #### C BC ####[facility] Plvvsmglwa7553 [place] [id number]. Airam Tripathi NEUT # 7.8 103/ul Critically high 1.4-6.5 [facility] Comment on above: Performed By: #### C BC ####[facility] Koklcammra3591 [place] [address]Dr. Airam Tripathi Neutrophils/100 WBC (Bld) 75.0 % Normal 43.0-75.0 [facility] Comment on above: Performed By: #### C BC ####[facility] Xgioqzdhlu6980 [place] [address]Dr. Airam Tripathi Platelet mean volume (Bld) [Entitic vol] 9.1 fL Critically low 9.5-13.5 [facility] Comment on above: Performed By: #### C BC ####[facility] Qvwnclywle[address] [place], [place] [address]Dr. Airam Tripathi PLT 341 103/ul Normal 150-450 [facility] Comment on above: Performed By: #### C BC ####[facility] Fsofghlvxv5621 [place] [address]Dr. Airam Tripathi RBC 3.20 106/ul Critically low 4.20-5.40 [facility] Comment on above: Performed By: #### C BC ####[facility] Kdpthefwid2725 [place] [id number]. Airam Tripathi WBC 10.4 103/ul Normal 4.0-11.0 [facility] Comment on above: Performed By: #### C BC ####[facility] Tvzynloooj[address] [place], [place] [address]Dr. Airam Tripathi CRPon 06-13-2022 CRP [Mass/Vol] mg/L Normal <=1.0 [facility] Comment on above: Performed By: #### T 4, BNP, MG, TSH, CMADM, CRP, CMP ####[facility] Gccvkusnua[address] [place], [place] [address] HEAD WO CONon 06-13-2022 CT HEAD WO CON Normal [facility] Covid-19 PCR (CVDTB)on 05-26 SARS-CoV-2 (COVID-19) RNA MIKE+probe Ql (Unsp spec) Not detected Normal NOT DETECTED [facility] Comment on above: Result Comment: When [...] for this test is supported by the [employer] of Health and Human Service's declaration that [...] be used). Performed By: #### C VDTBH ####[facility] Vgsaplszvc5524 [place] [id number]. Airam Deuce LACTATE/LACTIC ACIDon 2021 Lactate [Moles/Vol] 0.5 mmol/L Normal 0.4-1.9 [facility] Comment on above: Performed By: #### L ACT ####[facility] Atehxjvfnl0791 [place] [id number]. Airam Deuce MAGNESIUMon 06-13-2022 Magnesium [Mass/Vol] 1.9 mg/dL Normal 1.8-2.4 [facility] Comment on above: Performed By: #### T 4, BNP, MG, TSH, CMADM, CRP, CMP ####[facility] Hlncsknkzr9232 [place] [address]Dr. Airam Tripathi PROF 14(COMP METB)on 022 Albumin [Mass/Vol] 3.8 g/dL Normal 3.4-5.0 [facility] Comment on above: Performed By: #### T 4, BNP, MG, TSH, CMADM, CRP, CMP ####[facility] Mwsnyngqiq5993 [place] [address]Dr. Airam Tripathi Albumin/Globulin [Mass ratio] 1.1 {ratio} Normal [facility] Comment on above: Performed By: #### T 4, BNP, MG, TSH, CMADM, CRP, CMP ####[facility] Kshaimbmgl[address] [place], [place] [address]Dr. Airam Tripathi ALP [Catalytic activity/Vol] 161 U/L Critically high 46-116 [facility] Comment on above: Performed By: #### T 4, BNP, MG, TSH, CMADM, CRP, CMP ####[facility] Xxbhlggehf4293 [place] [address]Dr. Airam Tripathi ALT [Catalytic activity/Vol] 21 U/L Normal 14-59 [facility] Comment on above: Performed By: #### T 4, BNP, MG, TSH, CMADM, CRP, CMP ####[facility] Tieuhuvwbu9970 [place] [address]Dr. Airam Tripathi Anion gap [Moles/Vol] 12.6 mmol/L Normal [facility] Comment on above: Performed By: #### T 4, BNP, MG, TSH, CMADM, CRP, CMP ####[facility] Mkpaykrpyo5175 [place] [address]Dr. Airam Tripathi AST [Catalytic activity/Vol] 30 U/L Normal 15-37 [facility] Comment on above: Performed By: #### T 4, BNP, MG, TSH, CMADM, CRP, CMP ####[facility] Ripnagxyjg9428 [place] [address]Dr. Airam Tripathi Bilirubin [Mass/Vol] 0.3 mg/dL Normal 0.2-1.0 [facility] Comment on above: Performed By: #### T 4, BNP, MG, TSH, CMADM, CRP, CMP ####[facility] Hcgffcdxkv6831 [place] [address]Dr. Airam Tripathi Calcium [Mass/Vol] 8.8 mg/dL Normal 8.5-10.1 [facility] Comment on above: Performed By: #### T 4, BNP, MG, TSH, CMADM, CRP, CMP ####[facility] Appddvyxdb6172 [place] [address]Dr. Airam Tripathi Chloride [Moles/Vol] 91 mmol/L Critically low 98-107 [facility] Comment on above: Performed By: #### T 4, BNP, MG, TSH, CMADM, CRP, CMP ####[facility] Ubltocgtry[address] [place], [place] [address]Dr. Airam Tripahti CO2 [Moles/Vol] 26.9 mmol/L Normal 21.0-32.0 [facility] Comment on above: Performed By: #### T 4, BNP, MG, TSH, CMADM, CRP, CMP ####[facility] Lyqxpwzjaa[address] [place], [place] [address]Dr. Airam Tripathi Creatinine [Mass/Vol] 1.83 mg/dL Critically high 0.55-1.02 [facility] Comment on above: Performed By: #### T 4, BNP, MG, TSH, CMADM, CRP, CMP ####[facility] [address]hwolxhx[address] [place], [place] [address]Dr. Airam Tripathi EGFR-AF CYPRIOT 34 mL/min/1.73m2 Critically low >=60 [facility] Comment on above: Performed By: #### T 4, BNP, MG, TSH, CMADM, CRP, CMP ####[facility] Iwlxccoxbz[address] [place], [place] [address]Dr. Airam Tripathi EGFR-NON AF CYPRIOT 28 mL/min/1.73m2 Critically low >=60 [facility] Comment on above: Performed By: #### T 4, BNP, MG, TSH, CMADM, CRP, CMP ####[facility] [address]wbikqopso[address] [place], [place] [address]Dr. Airam Tripathi Globulin (S) [Mass/Vol] 3.5 g/dL Normal [facility] Comment on above: Performed By: #### T 4, BNP, MG, TSH, CMADM, CRP, CMP ####[facility] [address] [address]Dr. Airam Tripathi Glucose [Mass/Vol] 96 mg/dL Normal 74-106 [facility] Comment on above: Performed By: #### T 4, BNP, MG, TSH, CMADM, CRP, CMP ####[facility] [id number] [place], [place] [address]Dr. Airam Tripathi Potassium [Moles/Vol] 4.5 mmol/L Normal 3.5-5.1 [facility] Comment on above: Performed By: #### T 4, BNP, MG, TSH, CMADM, CRP, CMP ####[facility] Snxenbydog[address] [place], [place] [address]Dr. Airam Tripathi Protein [Mass/Vol] 7.3 g/dL Normal 6.4-8.2 [facility] Comment on above: Performed By: #### T 4, BNP, MG, TSH, CMADM, CRP, CMP ####[facility] Nsqgojuxgv[address] [place], [place] [address]Dr. Airam Tripathi Sodium [Moles/Vol] 126 mmol/L Critically low 136-145 [facility] Comment on above: Performed By: #### T 4, BNP, MG, TSH, CMADM, CRP, CMP ####[facility] Cygehpkkxt[address] [place], [place] [address]Dr. Airam Tripathi Urea nitrogen [Mass/Vol] 34.0 mg/dL Critically high 7.0-18.0 [facility] Comment on above: Performed By: #### T 4, BNP, MG, TSH, CMADM, CRP, CMP ####[facility] Xtzcnsahkh24[address] [place], [place] [address]Dr. Airam Tripathi Urea nitrogen/Creatinine [Mass ratio] 18.6 mg/mg Normal [facility] Comment on above: Performed By: #### T 4, BNP, MG, TSH, CMADM, CRP, CMP ####[facility] Sdwld[address]zqgt29[address] [place] [id number]. Airam Tripathi Albumin [Mass/Vol] 3.4 g/dL Normal 3.4-5.0 [facility] Comment on above: Performed By: #### C MP ####[facility] Sxbduqcdrc[address] [place] [address]Dr. Airam Tripathi Albumin/Globulin [Mass ratio] 1.0 {ratio} Normal [facility] Comment on above: Performed By: #### C MP ####[facility] Efhvdfzxwp27[address] [place] [address]Dr. Airam Tripathi ALP [Catalytic activity/Vol] 151 U/L Critically high 46-116 [facility] Comment on above: Performed By: #### C MP ####[facility] Ynvhteenzs[address] [place], [place] [address]Dr. Airam Tripathi ALT [Catalytic activity/Vol] 20 U/L Normal 14-59 [facility] Comment on above: Performed By: #### C MP ####[facility] Dktrhozzyi[address] [place], [place] [address]Dr. Airam Tripathi Anion gap [Moles/Vol] 11.7 mmol/L Normal [facility] Comment on above: Performed By: #### C MP ####[facility] Atvtjtkpdr12[address] [place], [place] [address]Dr. Airam Deuce AST [Catalytic activity/Vol] 28 U/L Normal 15-37 [facility] Comment on above: Performed By: #### C MP ####[facility] Ktpsvqghzc8[address] [place], [place] [address]Dr. Airam Deuce Bilirubin [Mass/Vol] 0.3 mg/dL Normal 0.2-1.0 [facility] Comment on above: Performed By: #### C MP ####[facility] Sttmicpqhw49[address] [place], [place] [address]Dr. Airam Deuce Calcium [Mass/Vol] 8.5 mg/dL Normal 8.5-10.1 [facility] Comment on above: Performed By: #### C MP ####[facility] Yvvxoihncz[address] [place], [place] [address]Dr. Airam Tripathi Chloride [Moles/Vol] 91 mmol/L Critically low 98-107 [facility] Comment on above: Performed By: #### C MP ####[facility] Jrcyziqfuu86[address] [place] [address]Dr. Airam Tripathi CO2 [Moles/Vol] 28.3 mmol/L Normal 21.0-32.0 [facility] Comment on above: Performed By: #### C MP ####[facility] Gbwoxxvwlk[address] [place] [address]Dr. Airam Tripathi Creatinine [Mass/Vol] 1.68 mg/dL Critically high 0.55-1.02 [facility] Comment on above: Performed By: #### C MP ####[facility] Kfxcianvrn27[address] [place] [address]Dr. Airam Tripathi EGFR-AF CYPRIOT 38 mL/min/1.73m2 Critically low >=60 [facility] Comment on above: Performed By: #### C MP ####[facility] Pffzdtsrdl10[address] [place] [address]Dr. Airam Tripathi EGFR-NON AF CYPRIOT 31 mL/min/1.73m2 Critically low >=60 [facility] Comment on above: Performed By: #### C MP ####[facility] Ffyfgwixzh7084 [place] [address]Dr. Airam Tripathi Globulin (S) [Mass/Vol] 3.5 g/dL Normal [facility] Comment on above: Performed By: #### C MP ####[facility] Wdarbfugqj8645 [place] [address]Dr. Airam Deuce Glucose [Mass/Vol] 74 mg/dL Normal 74-106 [facility] Comment on above: Performed By: #### C MP ####[facility] Qqnlltkztk6659 [place] [address]Dr. Airam Tripathi Potassium [Moles/Vol] 4.0 mmol/L Normal 3.5-5.1 [facility] Comment on above: Performed By: #### C MP ####[facility] Vygnhyrxcl35[address] [place] [address]Dr. Airam Tripathi Protein [Mass/Vol] 6.9 g/dL Normal 6.4-8.2 [facility] Comment on above: Performed By: #### C MP ####[facility] Rodqlzavhh188[address] [place], [place] [address]Dr. Airam Tripathi Sodium [Moles/Vol] 127 mmol/L Critically low 136-145 [facility] Comment on above: Performed By: #### C MP ####[facility] Ckndkmosxo[address] [place], [place] [address]Dr. Airam Tripathi Urea nitrogen [Mass/Vol] 29.0 mg/dL Critically high 7.0-18.0 [facility] Comment on above: Performed By: #### C MP ####[facility] Fhshqqlxtw[address] [place], [place] [address]Dr. Airam Tripathi Urea nitrogen/Creatinine [Mass ratio] 17.3 mg/mg Normal [facility] Comment on above: Performed By: #### C MP ####[facility] Ylnxdtmchm[address] [place], [place] [address]Dr. Airam Tripathi T4on 06-13-2022 T4 [Mass/Vol] 6.80 ug/dL Normal 4.80-13.90 [facility] Comment on above: Performed By: #### T 4, BNP, MG, TSH, CMADM, CRP, CMP ####[facility] Lualkqnarx01[address] [place], [place] [address]Dr. Airam Tripathi TSHon 06-13-2022 TSH 0.101 uIU/mL Critically low 0.358-3.740 [facility] Comment on above: Performed By: #### T 4, BNP, MG, TSH, CMADM, CRP, CMP ####[facility] Zcvxautofp4367[address] [place], [place] [address]Dr. Airam Tripathi OSMOLALITYon 06-08-2022 Osmolality [Osmolality] 272 mosm/kg Critically low 275-295 [facility] Comment on above: Performed By: #### O SMO ####[facility] Itjmlhlbft7413[address] [place], [place] [address]Dr. Airam Tripathi CBC AUTO DIFFon 06-06-2022 BASO # 0.0 103/ul Normal 0.0-0.1 [facility] Comment on above: Performed By: #### C BC ####[facility] Scoksirynn[address] [place] [address]Dr. Airam Tripathi Basophils/100 WBC (Bld) 0.3 % Normal 0.2-2.0 [facility] Comment on above: Performed By: #### C BC ####[facility] Oyhwngfkjy025[address] [place], [place] [address]Dr. Airam Tripathi EO # 0.2 103/ul Normal 0.0-0.7 [facility] Comment on above: Performed By: #### C BC ####[facility] Kuscjxnggy69[address] [place], [place] [address]Dr. Airam Tripathi Eosinophils/100 WBC (Bld) 2.5 % Normal 0.9-7.0 [facility] Comment on above: Performed By: #### C BC ####[facility] Vovtezinut34[address] [place], [place] [address]Dr. Airam Tripathi Erythrocyte distribution width (RBC) [Ratio] 12.9 % Normal 11.0-15.0 [facility] Comment on above: Performed By: #### C BC ####[facility] Jnsdxqcnca69[address] [place], [place] [address]Dr. Airam Tripathi Hematocrit (Bld) [Volume fraction] 29.8 % Critically low 36.0-48.0 [facility] Comment on above: Performed By: #### C BC ####[facility] Gpadwdzbfa5156[address] [place], [place] [address]Dr. Airam Tripathi Hemoglobin (Bld) [Mass/Vol] 9.7 g/dL Critically low 12.0-16.0 [facility] Comment on above: Performed By: #### C BC ####[facility] Gwcsdfzwnp050[address] [place], [place] [address]Dr. Selenaneil Tripathi IG # 0.03 10e3/ul Normal 0.00-0.03 [facility] Comment on above: Performed By: #### C BC ####[facility] Biytzmyexr[address] [place], [place] [id number]. Airam Tripathi IG % 0.3 % Normal 0.0-0.5 [facility] Comment on above: Performed By: #### C BC ####[facility] Fhzxqcjypp35[address] [place] [address]Dr. Airam Tripathi LYMPH # 1.3 103/ul Normal 1.2-3.8 [facility] Comment on above: Performed By: #### C BC ####[facility] Pejhzhrhna6075 [place] [address]DrKianna Tripathi Lymphocytes/100 WBC (Bld) 14.6 % Critically low 20.5-60.0 [facility] Comment on above: Performed By: #### C BC ####[facility] Ssbttoerbe67[address] [place], [place] [address]DrKianna Tripathi MANUAL DIFF REQ NO Normal [facility] Comment on above: Performed By: #### C BC ####[facility] Ncfzpdmwol85[address] [place], [place] [address]DrKianna Selenaneil Tripathi MCH (RBC) [Entitic mass] 30.6 pg Normal 26.7-34.0 [facility] Comment on above: Performed By: #### C BC ####[facility] Wzuylooajf[address] [place], [place] [address]DrKianna Airam Deuce MCHC (RBC) [Mass/Vol] 32.6 g/dL Normal 29.9-35.2 [facility] Comment on above: Performed By: #### C BC ####[facility] Ibyvonirnz0699[address] [place], [place] [address]DrKianna Selenaneil Tripathi MCV (RBC) [Entitic vol] 94.0 fL Normal 81.0-99.0 [facility] Comment on above: Performed By: #### C BC ####[facility] Ikjluinbbz9546[address] [place], [place] [address]DrKianna Tripathi MONO # 0.5 103/ul Normal 0.3-0.8 [facility] Comment on above: Performed By: #### C BC ####[facility] Lfvhiucpmq3817[address] [place], [place] [address]DrKianna Tripathi Monocytes/100 WBC (Bld) 5.7 % Normal 1.7-12.0 [facility] Comment on above: Performed By: #### C BC ####[facility] Mcjzawsetk4[address] [place] [address]Dr. Airam Tripathi NEUT # 6.9 103/ul Critically high 1.4-6.5 [facility] Comment on above: Performed By: #### C BC ####[facility] Octevdyesl[address]2 [place] [address]Dr. Airam Tripathi Neutrophils/100 WBC (Bld) 76.6 % Critically high 43.0-75.0 [facility] Comment on above: Performed By: #### C BC ####[facility] Nbifenawtc[address] [place], [place] [address]Dr. Airam Tripathi Platelet mean volume (Bld) [Entitic vol] 9.2 fL Critically low 9.5-13.5 [facility] Comment on above: Performed By: #### C BC ####[facility] Oerxvvtmny9[address] [place], [place] [address]Dr. Airam Tripathi PLT 271 103/ul Normal 150-450 [facility] Comment on above: Performed By: #### C BC ####[facility] Pvkltdxcrp9646[address] [place], [place] [address]Dr. Airam Tripathi RBC 3.17 106/ul Critically low 4.20-5.40 [facility] Comment on above: Performed By: #### C BC ####[facility] Kzpixsexkt5429[address] [place], [place] [address]Dr. Airam Tripathi WBC 9.1 103/ul Normal 4.0-11.0 [facility] Comment on above: Performed By: #### C BC ####[facility] Lqiwiwtpms096[address] [place], [place] [address]DrKianna Selenaneil Tripathi PROF 14(COMP METB)on 022 Albumin [Mass/Vol] 3.4 g/dL Normal 3.4-5.0 [facility] Comment on above: Performed By: #### C MP ####[facility] Kercmpsgtr7[address] [place], [place] [address]Dr. Airam Tripathi Albumin/Globulin [Mass ratio] 1.0 {ratio} Normal [facility] Comment on above: Performed By: #### C MP ####[facility] Uwrtuqjxnr238[address] [place], [place] [address]Dr. Airam Tripathi ALP [Catalytic activity/Vol] 156 U/L Critically high 46-116 [facility] Comment on above: Performed By: #### C MP ####[facility] Kwoomwdnby9300[address] [place], [place] [address]Dr. Airam Tripathi ALT [Catalytic activity/Vol] 18 U/L Normal 14-59 [facility] Comment on above: Performed By: #### C MP ####[facility] Jdzarygeok959[address] [place], [place] [address]Dr. Airam Tripathi Anion gap [Moles/Vol] 10.8 mmol/L Normal [facility] Comment on above: Performed By: #### C MP ####[facility] Pvotkmnhnz984[address] [place], [place] [address]Dr. Airam Tripathi AST [Catalytic activity/Vol] 27 U/L Normal 15-37 [facility] Comment on above: Performed By: #### C MP ####[facility] Dpnlyrelcs6570[address] [place], [place] [address]Dr. Airam Tripathi Bilirubin [Mass/Vol] 0.2 mg/dL Normal 0.2-1.0 [facility] Comment on above: Performed By: #### C MP ####[facility] Enljtmhlzg8049[address] [place], [place] [address]Dr. Airam Tripathi Calcium [Mass/Vol] 8.1 mg/dL Critically low 8.5-10.1 [facility] Comment on above: Performed By: #### C MP ####[facility] Pvezolpdrg2530[address] [place], [place] [address]Dr. Airam Tripathi Chloride [Moles/Vol] 92 mmol/L Critically low 98-107 [facility] Comment on above: Performed By: #### C MP ####[facility] Hxwovowiec4069[address] [place], [place] [address]Dr. Airam Tripathi CO2 [Moles/Vol] 27.4 mmol/L Normal 21.0-32.0 [facility] Comment on above: Performed By: #### C MP ####[facility] Lnvppuzpiq7679[address] [place], [place] [address]Dr. Airam Tripathi Creatinine [Mass/Vol] 1.57 mg/dL Critically high 0.55-1.02 [facility] Comment on above: Performed By: #### C MP ####[facility] Fdsdlzpvqs3207[address] [place], [place] [address]Dr. Airam Deuce EGFR-AF CYPRIOT 41 mL/min/1.73m2 Critically low >=60 [facility] Comment on above: Performed By: #### C MP ####[facility] Ddeobclvmg034[address] [place], [place] [address]Dr. Selenaneil Deuce EGFR-NON AF CYPRIOT 34 mL/min/1.73m2 Critically low >=60 [facility] Comment on above: Performed By: #### C MP ####[facility] Tskfvtgyyr845[address] [place], [place] [address]Dr. Airam Deuce Globulin (S) [Mass/Vol] 3.4 g/dL Normal [facility] Comment on above: Performed By: #### C MP ####[facility] Qlfmahumxt3179[address] [place], [place] [address]Dr. Airam Deuce Glucose [Mass/Vol] 82 mg/dL Normal 74-106 [facility] Comment on above: Performed By: #### C MP ####[facility] Hrmvhtkuxb23[address] [place], [place] [address]Dr. Airam Deuce Potassium [Moles/Vol] 4.2 mmol/L Normal 3.5-5.1 [facility] Comment on above: Performed By: #### C MP ####[facility] Qbnkqogzsl6287[address] [place], [place] [address]Dr. Selenaneil Deuce Protein [Mass/Vol] 6.8 g/dL Normal 6.4-8.2 [facility] Comment on above: Performed By: #### C MP ####[facility] Qsfiffumes8115[address] [place], [place] [address]Dr. Airam Tripathi Sodium [Moles/Vol] 126 mmol/L Critically low 136-145 [facility] Comment on above: Performed By: #### C MP ####[facility] Qafngewpgs344[address] [place], [place] [address]Dr. Airam Tripathi Urea nitrogen [Mass/Vol] 35.0 mg/dL Critically high 7.0-18.0 [facility] Comment on above: Performed By: #### C MP ####[facility] Lxdgvcwbys3004[address] [place], [place] [address]Dr. Airam Tripathi Urea nitrogen/Creatinine [Mass ratio] 22.3 mg/mg Normal [facility] Comment on above: Performed By: #### C MP ####[facility] Tzqopetbhv[address] [place], [place] [address]Dr. Airam Tripathi OSMOLALITYon 06-02-2022 Osmolality [Osmolality] 276 mosm/kg Normal 275-295 [facility] Comment on above: Performed By: #### O SMO ####[facility] Fzhkmljfnd[address] [place], [place] [address]Dr. Airam Tripathi CBC AUTO DIFFon 06-01-2022 BASO # 0.1 103/ul Normal 0.0-0.1 [facility] Comment on above: Performed By: #### C BC ####[facility] Btumzspwtj4976[address] [place], [place] [address]Dr. Airam Deuce Basophils/100 WBC (Bld) 0.7 % Normal 0.2-2.0 [facility] Comment on above: Performed By: #### C BC ####[facility] Fckererwpn8495[address] [place], [place] [address]Dr. Airam Deuce EO # 0.3 103/ul Normal 0.0-0.7 [facility] Comment on above: Performed By: #### C BC ####[facility] Ungucsoxnb366[address] [place], [place] [address]Dr. Airam Deuce Eosinophils/100 WBC (Bld) 3.3 % Normal 0.9-7.0 [facility] Comment on above: Performed By: #### C BC ####[facility] Kdxzokzlky[address] [place], [place] [address]Dr. Airam Tripathi Erythrocyte distribution width (RBC) [Ratio] 13.2 % Normal 11.0-15.0 [facility] Comment on above: Performed By: #### C BC ####[facility] Hrhwrpjhjp8055 [place] [address]Dr. Airam Tripathi Hematocrit (Bld) [Volume fraction] 32.0 % Critically low 36.0-48.0 [facility] Comment on above: Performed By: #### C BC ####[facility] Tzhjaaeqmh3154[address] [place], [place] [address]Dr. Airam Tripathi Hemoglobin (Bld) [Mass/Vol] 10.3 g/dL Critically low 12.0-16.0 [facility] Comment on above: Performed By: #### C BC ####[facility] Gcpxczojxe4876[address] [place], [place] [address]Dr. Airam Tripathi IG # 0.05 10e3/ul Critically high 0.00-0.03 [facility] Comment on above: Performed By: #### C BC ####[facility] Yvobdtkkjv55[address] [place], [place] [address]Dr. Airam Tripathi IG % 0.7 % Critically high 0.0-0.5 [facility] Comment on above: Performed By: #### C BC ####[facility] Ckeudgfgqr2177[address] [place], [place] [address]Dr. Airam Tripathi LYMPH # 1.7 103/ul Normal 1.2-3.8 [facility] Comment on above: Performed By: #### C BC ####[facility] Jhccogxfcu4967[address] [place], [place] [address]Dr. Airam Tripathi Lymphocytes/100 WBC (Bld) 22.6 % Normal 20.5-60.0 [facility] Comment on above: Performed By: #### C BC ####[facility] Ymkoabnhxa[address] [place], [place] [address]Dr. Airam Tripathi MANUAL DIFF REQ NO Normal [facility] Comment on above: Performed By: #### C BC ####[facility] Izgaroxjdf640[address] [place], [place] [address]Dr. Airam Tripathi MCH (RBC) [Entitic mass] 30.8 pg Normal 26.7-34.0 [facility] Comment on above: Performed By: #### C BC ####[facility] Xhdbfcgqfh0419 [place] [address]Dr. Ariam Tripathi MCHC (RBC) [Mass/Vol] 32.2 g/dL Normal 29.9-35.2 [facility] Comment on above: Performed By: #### C BC ####[facility] Sqzbiyllwd9[address] [place], [place] [address]Dr. Airam Tripathi MCV (RBC) [Entitic vol] 95.8 fL Normal 81.0-99.0 [facility] Comment on above: Performed By: #### C BC ####[facility] Dpdnsjwvfb0813[address] [place], [place] [address]Dr. Airam Deuce MONO # 0.6 103/ul Normal 0.3-0.8 [facility] Comment on above: Performed By: #### C BC ####[facility] Akwuzmnjok348[address] [place], [place] [address]Dr. Airam Deuce Monocytes/100 WBC (Bld) 8.6 % Normal 1.7-12.0 [facility] Comment on above: Performed By: #### C BC ####[facility] Pxiigmvblw[address] [place], [place] [address]Dr. Airam Tripathi NEUT # 4.8 103/ul Normal 1.4-6.5 [facility] Comment on above: Performed By: #### C BC ####[facility] Fsfueccfpc68[address] [place], [place] [address]Dr. Airam Deuce Neutrophils/100 WBC (Bld) 64.1 % Normal 43.0-75.0 [facility] Comment on above: Performed By: #### C BC ####[facility] Ntyhgwpejj549[address] [place], [place] [address]Dr. Airam Tripathi Platelet mean volume (Bld) [Entitic vol] 10.0 fL Normal 9.5-13.5 [facility] Comment on above: Performed By: #### C BC ####[facility] [address]bongvgxp[address] [place] [id number]. Airam Tripathi PLT 322 103/ul Normal 150-450 [facility] Comment on above: Performed By: #### C BC ####[facility] Bmfjmxcuch5374 [place] [address]Dr. Selenaneil Deuce RBC 3.34 106/ul Critically low 4.20-5.40 [facility] Comment on above: Performed By: #### C BC ####[facility] Exdotfbccr2820 [place] [address]Dr. Airam Tripathi WBC 7.5 103/ul Normal 4.0-11.0 [facility] Comment on above: Performed By: #### C BC ####[facility] Keobvewjdw[address] [place], [place] [address]Dr. Airam Tripathi PROF 14(COMP METB)on 022 Albumin [Mass/Vol] 3.5 g/dL Normal 3.4-5.0 [facility] Comment on above: Performed By: #### C MP ####[facility] Mcnbxivozb9[address] [place], [place] [address]Dr. Airam Tripathi Albumin/Globulin [Mass ratio] 1.1 {ratio} Normal [facility] Comment on above: Performed By: #### C MP ####[facility] Dbpkbxtwox70[address] [place] [address]Dr. Airam Tripathi ALP [Catalytic activity/Vol] 167 U/L Critically high 46-116 [facility] Comment on above: Performed By: #### C MP ####[facility] Zgfjynolua8[address] [place] [address]Dr. Airam Tripathi ALT [Catalytic activity/Vol] 24 U/L Normal 14-59 [facility] Comment on above: Performed By: #### C MP ####[facility] Zvnmliqpgt1600 [place] [address]DrKianna Tripathi Anion gap [Moles/Vol] 14.1 mmol/L Normal [facility] Comment on above: Performed By: #### C MP ####[facility] Totfigpehn[address] [place], [place] [address]Dr. Airam Tripathi AST [Catalytic activity/Vol] 27 U/L Normal 15-37 [facility] Comment on above: Performed By: #### C MP ####[facility] Glqkzksbvy6607 [place] [address]Dr. Airam Tripathi Bilirubin [Mass/Vol] 0.3 mg/dL Normal 0.2-1.0 [facility] Comment on above: Performed By: #### C MP ####[facility] Msxabdmlrt2[address] [place], [place] [address]Dr. Airam Tripathi Calcium [Mass/Vol] 8.0 mg/dL Critically low 8.5-10.1 [facility] Comment on above: Performed By: #### C MP ####[facility] Phrkpbgbzf[address] [place], [place] [address]Dr. Airam Tripathi Chloride [Moles/Vol] 96 mmol/L Critically low 98-107 [facility] Comment on above: Performed By: #### C MP ####[facility] Wdznekypou[address] [place], [place] [address]Dr. Airam Tripathi CO2 [Moles/Vol] 24.6 mmol/L Normal 21.0-32.0 [facility] Comment on above: Performed By: #### C MP ####[facility] Uevdcttybh7[address] [place], [place] [address]Dr. Airam Tripathi Creatinine [Mass/Vol] 1.79 mg/dL Critically high 0.55-1.02 [facility] Comment on above: Performed By: #### C MP ####[facility] [facility] [address] [place], [place] [address]Dr. Airam Deuce EGFR-AF CYPRIOT 35 mL/min/1.73m2 Critically low >=60 [facility] Comment on above: Performed By: #### C MP ####[facility] Exndobftrc[address] [place], [place] [address]Dr. Airam Deuce EGFR-NON AF CYPRIOT 29 mL/min/1.73m2 Critically low >=60 [facility] Comment on above: Performed By: #### C MP ####[facility] Youwefqbey[address] [place], [place] [address]Dr. Airam Deuce Globulin (S) [Mass/Vol] 3.3 g/dL Normal [facility] Comment on above: Performed By: #### C MP ####[facility] Bjxfrbdqnn[address] [place], [place] [address]Dr. Airam Tripathi Glucose [Mass/Vol] 58 mg/dL Critically low 74-106 [facility] Comment on above: Performed By: #### C MP ####[facility] Kqlmemlsie24[address] [place], [place] [address]Dr. Airam Deuce Potassium [Moles/Vol] 4.7 mmol/L Normal 3.5-5.1 [facility] Comment on above: Performed By: #### C MP ####[facility] Vzv[address]ok[address] [place], [place] [address]Dr. Airam Tripathi Protein [Mass/Vol] 6.8 g/dL Normal 6.4-8.2 [facility] Comment on above: Performed By: #### C MP ####[facility] Tgrdhiozhc[address] [place], [place] [address]Dr. Airam Deuce Sodium [Moles/Vol] 130 mmol/L Critically low 136-145 [facility] Comment on above: Performed By: #### C MP ####[facility] Jobdxjdidd[address] [place], [place] [address]Dr. Selenaneil Tripathi Urea nitrogen [Mass/Vol] 30.0 mg/dL Critically high 7.0-18.0 [facility] Comment on above: Performed By: #### C MP ####[facility] Juhnytpnwb[address] [place], [place] [address]Dr. Airam Deuce Urea nitrogen/Creatinine [Mass ratio] 16.8 mg/mg Normal [facility] Comment on above: Performed By: #### C MP ####[facility] Towmtythfo[address] [place], [place] [address]Dr. Airam Deuce OSMOLALITYon 05-28-2022 Osmolality [Osmolality] 275 mosm/kg Normal 275-295 [facility] Comment on above: Performed By: #### O SMO ####[facility] Fyhwxomwqc[address] [place], [place] [address]Dr. Airam Tripathi CBC AUTO DIFFon 05-26-2022 BASO # 0.0 103/ul Normal 0.0-0.1 [facility] Comment on above: Performed By: #### C BC ####[facility] Qdtzutephx[address] [place] [address]Dr. Airam Tripathi Basophils/100 WBC (Bld) 0.4 % Normal 0.2-2.0 [facility] Comment on above: Performed By: #### C BC ####[facility] Lcteokmvym[address] [place] [address]Dr. Airam Tripathi EO # 0.3 103/ul Normal 0.0-0.7 [facility] Comment on above: Performed By: #### C BC ####[facility] Bfsnooimsq7119 [place] [address]Dr. Airam Deuce Eosinophils/100 WBC (Bld) 3.2 % Normal 0.9-7.0 [facility] Comment on above: Performed By: #### C BC ####[facility] Eumdkodhux[address] [place], [place] [address]Dr. Airam Tripathi Erythrocyte distribution width (RBC) [Ratio] 13.0 % Normal 11.0-15.0 [facility] Comment on above: Performed By: #### C BC ####[facility] Gmvnyaqsoe55[address] [place] [address]Dr. Airam Tripathi Hematocrit (Bld) [Volume fraction] 30.4 % Critically low 36.0-48.0 [facility] Comment on above: Performed By: #### C BC ####[facility] Ijadolxiue[address] [place] [address]Dr. Airam Tripathi Hemoglobin (Bld) [Mass/Vol] 9.6 g/dL Critically low 12.0-16.0 [facility] Comment on above: Performed By: #### C BC ####[facility] Hrsqszlwjl[address] [place] [address]Dr. Airam Deuce IG # 0.06 10e3/ul Critically high 0.00-0.03 [facility] Comment on above: Performed By: #### C BC ####[facility] Jcoxgbxsff5237 [place] [id number]. Airam Tripathi IG % 0.7 % Critically high 0.0-0.5 [facility] Comment on above: Performed By: #### C BC ####[facility] Zgrahmmiyq7420 [place] [address]Dr. Airam Tripathi LYMPH # 1.9 103/ul Normal 1.2-3.8 [facility] Comment on above: Performed By: #### C BC ####[facility] Bayhwkzznv7095 [place] [address]Dr. Airam Tripathi Lymphocytes/100 WBC (Bld) 20.6 % Normal 20.5-60.0 [facility] Comment on above: Performed By: #### C BC ####[facility] Mmvhjqwvwb5301 [place] [address]Dr. Airam Tripathi MANUAL DIFF REQ NO Normal [facility] Comment on above: Performed By: #### C BC ####[facility] Vklkqnevep5322 [place] [id number]. Airam Tripathi MCH (RBC) [Entitic mass] 30.1 pg Normal 26.7-34.0 [facility] Comment on above: Performed By: #### C BC ####[facility] Nxtfzvpqmd0675 [place] [id number]. Airam Tripathi MCHC (RBC) [Mass/Vol] 31.6 g/dL Normal 29.9-35.2 [facility] Comment on above: Performed By: #### C BC ####[facility] Hzzxqmrsfl6712 [place] [id number]. Airam Tripathi MCV (RBC) [Entitic vol] 95.3 fL Normal 81.0-99.0 [facility] Comment on above: Performed By: #### C BC ####[facility] Ksuxbmaleg7681 [place] [address]Dr. Airam Tripathi MONO # 0.6 103/ul Normal 0.3-0.8 [facility] Comment on above: Performed By: #### C BC ####[facility] Cytlhdzkmc6311 [place] [id number]. Airam Tripathi Monocytes/100 WBC (Bld) 6.9 % Normal 1.7-12.0 [facility] Comment on above: Performed By: #### C BC ####[facility] Refdwftslx3888 [place] [id number]. Airam Tripathi NEUT # 6.1 103/ul Normal 1.4-6.5 [facility] Comment on above: Performed By: #### C BC ####[facility] Lbcfjmlhjk4575 [place] [address]Dr. Airam Tripathi Neutrophils/100 WBC (Bld) 68.2 % Normal 43.0-75.0 [facility] Comment on above: Performed By: #### C BC ####[facility] Eucfauwsyu0974 [place] [id number]. Airam Tripathi Platelet mean volume (Bld) [Entitic vol] 9.7 fL Normal 9.5-13.5 [facility] Comment on above: Performed By: #### C BC ####[facility] Phmdnahoqd6279 [place] [address]Dr. Airam Tripathi PLT 317 103/ul Normal 150-450 [facility] Comment on above: Performed By: #### C BC ####[facility] Rpxbrzaliz8461 [place] [address]Dr. Airam Tripathi RBC 3.19 106/ul Critically low 4.20-5.40 [facility] Comment on above: Performed By: #### C BC ####[facility] Hxaquydkzt7701 [place] [id number]. Airam Tripathi WBC 9.0 103/ul Normal 4.0-11.0 [facility] Comment on above: Performed By: #### C BC ####[facility] Tnvvilqbus2360 [place] [address]Dr. Airam Deuce PROF 14(COMP METB)on 022 Albumin [Mass/Vol] 3.4 g/dL Normal 3.4-5.0 [facility] Comment on above: Performed By: #### C MP ####[facility] Mbtwybbbgj0908 [place] [address]Dr. Airam Tripathi Albumin/Globulin [Mass ratio] 1.0 {ratio} Normal [facility] Comment on above: Performed By: #### C MP ####[facility] Rpxweofppi5212 [place] [address]Dr. Airam Deuce ALP [Catalytic activity/Vol] 153 U/L Critically high 46-116 [facility] Comment on above: Performed By: #### C MP ####[facility] Jittsgqpht8802 [place] [address]Dr. Airam Deuce ALT [Catalytic activity/Vol] 21 U/L Normal 14-59 [facility] Comment on above: Performed By: #### C MP ####[facility] Eyesqfojaf7[address] [place], [place] [address]Dr. Airam Tripathi Anion gap [Moles/Vol] 13.6 mmol/L Normal [facility] Comment on above: Performed By: #### C MP ####[facility] Vlylixlraz[address] [place], [place] [address]Dr. Airam Deuce AST [Catalytic activity/Vol] 23 U/L Normal 15-37 [facility] Comment on above: Performed By: #### C MP ####[facility] Vrqkklqqit[address] [place], [place] [address]Dr. Airam Deuce Bilirubin [Mass/Vol] 0.2 mg/dL Normal 0.2-1.0 [facility] Comment on above: Performed By: #### C MP ####[facility] Mveymycrba[address] [place], [place] [address]Dr. Airam Tripathi Calcium [Mass/Vol] 8.4 mg/dL Critically low 8.5-10.1 [facility] Comment on above: Performed By: #### C MP ####[facility] Hqfjpryoby[address] [place], [place] [address]Dr. Airam Tripathi Chloride [Moles/Vol] 97 mmol/L Critically low 98-107 [facility] Comment on above: Performed By: #### C MP ####[facility] Evncebzpvm[address] [place], [place] [address]Dr. Airam Tripathi CO2 [Moles/Vol] 25.2 mmol/L Normal 21.0-32.0 [facility] Comment on above: Performed By: #### C MP ####[facility] Kpilnyosos0960 [place] [address]Dr. Airam Tripathi Creatinine [Mass/Vol] 1.58 mg/dL Critically high 0.55-1.02 [facility] Comment on above: Performed By: #### C MP ####[facility] Unonyrbtgo[address] [place], [place] [address]Dr. Airam Tripathi EGFR-AF CYPRIOT 40 mL/min/1.73m2 Critically low >=60 [facility] Comment on above: Performed By: #### C MP ####[facility] Nmqswffosd[address] [place], [place] [address]Dr. Airam Tripathi EGFR-NON AF CYPRIOT 33 mL/min/1.73m2 Critically low >=60 [facility] Comment on above: Performed By: #### C MP ####[facility] Ljmwlvcbxz[address] [place], [place] [address]Dr. Airam Tripathi Globulin (S) [Mass/Vol] 3.4 g/dL Normal [facility] Comment on above: Performed By: #### C MP ####[facility] Doaoyvzssm[address] [place], [place] [address]Dr. Airam Tripathi Glucose [Mass/Vol] 74 mg/dL Normal 74-106 [facility] Comment on above: Performed By: #### C MP ####[facility] Ygpnyzgyaq[address] [place], [place] [address]Dr. Airam Tripathi Potassium [Moles/Vol] 4.8 mmol/L Normal 3.5-5.1 [facility] Comment on above: Performed By: #### C MP ####[facility] Hkgqfevrab[address] [place], [place] [address]Dr. Airam Tripathi Protein [Mass/Vol] 6.8 g/dL Normal 6.4-8.2 [facility] Comment on above: Performed By: #### C MP ####[facility] Rqtjztddew2691 [place] [address]Dr. Airam Tripathi Sodium [Moles/Vol] 131 mmol/L Critically low 136-145 [facility] Comment on above: Performed By: #### C MP ####[facility] Hkmklnpwqq9764[address] [place], [place] [address]Dr. Airam Tripathi Urea nitrogen [Mass/Vol] 31.0 mg/dL Critically high 7.0-18.0 [facility] Comment on above: Performed By: #### C MP ####[facility] Uoaqzrupye[address] [place], [place] [address]Dr. Airam Tripathi Urea nitrogen/Creatinine [Mass ratio] 19.6 mg/mg Normal [facility] Comment on above: Performed By: #### C MP ####[facility] Fqgxkhcrnl[address] [place], [place] [address]Dr. Airam Tripathi OSMOLALITYon 05-19-2022 Osmolality [Osmolality] 281 mosm/kg Normal 275-295 [facility] Comment on above: Performed By: #### O SMO ####[facility] Cwmehlrowb2[address] [place], [place] [address]Dr. Airam Tripathi CBC AUTO DIFFon 05-17-2022 BASO # 0.1 103/ul Normal 0.0-0.1 [facility] Comment on above: Performed By: #### C BC ####[facility] Xjxzkndakt64[address] [place], [place] [address]Dr. Airam Tripathi Basophils/100 WBC (Bld) 0.6 % Normal 0.2-2.0 [facility] Comment on above: Performed By: #### C BC ####[facility] Udiabmmiph249[address] [place], [place] [address]Dr. Airam Tripathi EO # 0.2 103/ul Normal 0.0-0.7 [facility] Comment on above: Performed By: #### C BC ####[facility] Nnkmwivfeg[address] [place], [place] [address]Dr. Airam Tripathi Eosinophils/100 WBC (Bld) 1.9 % Normal 0.9-7.0 [facility] Comment on above: Performed By: #### C BC ####[facility] Ijxuzwdprz3447 [place] [address]Dr. Airam Tripathi Erythrocyte distribution width (RBC) [Ratio] 12.9 % Normal 11.0-15.0 [facility] Comment on above: Performed By: #### C BC ####[facility] Azqsylugtf8204[address] [place], [place] [address]Dr. Airam Tripathi Hematocrit (Bld) [Volume fraction] 32.1 % Critically low 36.0-48.0 [facility] Comment on above: Performed By: #### C BC ####[facility] Algkfhoxwy[address] [place], [place] [address]Dr. Airam Tripathi Hemoglobin (Bld) [Mass/Vol] 9.9 g/dL Critically low 12.0-16.0 [facility] Comment on above: Performed By: #### C BC ####[facility] Yzdygtmrmp39[address] [place], [place] [address]Dr. Selenaneil Tripathi IG # 0.05 10e3/ul Critically high 0.00-0.03 [facility] Comment on above: Performed By: #### C BC ####[facility] Uanrphffzh[address] [place], [place] [address]Dr. Airam Tripathi IG % 0.6 % Critically high 0.0-0.5 [facility] Comment on above: Performed By: #### C BC ####[facility] Xqmptlrqsz[address] [place], [place] [address]Dr. Selenaneil Triptahi LYMPH # 1.3 103/ul Normal 1.2-3.8 [facility] Comment on above: Performed By: #### C BC ####[facility] Fkfyhwldnl64[address] [place], [place] [address]Dr. Selenaneil Tripathi Lymphocytes/100 WBC (Bld) 15.2 % Critically low 20.5-60.0 [facility] Comment on above: Performed By: #### C BC ####[facility] Oiyowinuig66[address] [place], [place] [address]Dr. Selenaneil Tripathi MANUAL DIFF REQ NO Normal [facility] Comment on above: Performed By: #### C BC ####[facility] Mhoyiauqhz1031 [place] [id number]. Airam Tripathi MCH (RBC) [Entitic mass] 30.0 pg Normal 26.7-34.0 [facility] Comment on above: Performed By: #### C BC ####[facility] Aybptadjkt1482 [place] [id number]. Airam Tripathi MCHC (RBC) [Mass/Vol] 30.8 g/dL Normal 29.9-35.2 [facility] Comment on above: Performed By: #### C BC ####[facility] Hvoevhlhjw7906 [place] [address]Dr. Airam Tripathi MCV (RBC) [Entitic vol] 97.3 fL Normal 81.0-99.0 [facility] Comment on above: Performed By: #### C BC ####[facility] Pxpgeseaqz[address] [place], [place] [address]Dr. Airam Deuce MONO # 0.5 103/ul Normal 0.3-0.8 [facility] Comment on above: Performed By: #### C BC ####[facility] Vdtkszirdd3527 [place] [address]Dr. Airam Tripathi Monocytes/100 WBC (Bld) 5.4 % Normal 1.7-12.0 [facility] Comment on above: Performed By: #### C BC ####[facility] Coimyxpgar[address] [place], [place] [address]Dr. Airam Tripathi NEUT # 6.5 103/ul Normal 1.4-6.5 [facility] Comment on above: Performed By: #### C BC ####[facility] Bfjngoeiuj[address] [place], [place] [address]Dr. Airam Deuce Neutrophils/100 WBC (Bld) 76.3 % Critically high 43.0-75.0 [facility] Comment on above: Performed By: #### C BC ####[facility] B[address]xiuqvlw[address] [place], [place] [address]Dr. Airam Tripathi Platelet mean volume (Bld) [Entitic vol] 10.1 fL Normal 9.5-13.5 [facility] Comment on above: Performed By: #### C BC ####[facility] Rsybfrzigf6095 [place] [address]Dr. Airam Tripathi PLT 284 103/ul Normal 150-450 [facility] Comment on above: Performed By: #### C BC ####[facility] Ppkbocktnq0368 [place] [address]Dr. Airam Tripathi RBC 3.30 106/ul Critically low 4.20-5.40 [facility] Comment on above: Performed By: #### C BC ####[facility] Wvmbbuuzdg6014 [place] [address]Dr. Airam Tripathi WBC 8.5 103/ul Normal 4.0-11.0 [facility] Comment on above: Performed By: #### C BC ####[facility] Swtzkmxmsx2244 [place] [address]Dr. Airam Deuce PROF 14(COMP METB)on 05-17- 022 Albumin [Mass/Vol] 3.1 g/dL Critically low 3.4-5.0 [facility] Comment on above: Performed By: #### C MP ####[facility] Nwiobzzdag3578 [place] [address]Dr. Airam Deuce Albumin/Globulin [Mass ratio] 0.9 {ratio} Normal [facility] Comment on above: Performed By: #### C MP ####[facility] Psdinqmles0936 [place] [address]Dr. Airam Deuce ALP [Catalytic activity/Vol] 162 U/L Critically high 46-116 [facility] Comment on above: Performed By: #### C MP ####[facility] Fbwfnjwjla5208 [place] [address]Dr. Airam Deuce ALT [Catalytic activity/Vol] 22 U/L Normal 14-59 [facility] Comment on above: Performed By: #### C MP ####[facility] Maqyqvpalh4846 [place] [address]Dr. Selenaneil Deuce Anion gap [Moles/Vol] 9.4 mmol/L Normal [facility] Comment on above: Performed By: #### C MP ####[facility] Ggjjjwiahx5469 [place], [place] [address]Zw. Airam Tripathi AST [Catalytic activity/Vol] 26 U/L Normal 15-37 [facility] Comment on above: Performed By: #### C MP ####[facility] Xjbibfhthc4283 [place], [place] [address]Pa. Airam Tripathi Bilirubin [Mass/Vol] 0.2 mg/dL Normal 0.2-1.0 [facility] Comment on above: Performed By: #### C MP ####[facility] Hsdicjlypu5881 [place] [address]Dr. Airam Tripathi Calcium [Mass/Vol] 8.2 mg/dL Critically low 8.5-10.1 [facility] Comment on above: Performed By: #### C MP ####[facility] Qntynsolpq5592 [place] [address]Dr. Airam Tripathi Chloride [Moles/Vol] 103 mmol/L Normal 98-107 [facility] Comment on above: Performed By: #### C MP ####[facility] Hgyfqiflsq5156 [place] [address]Dr. Airam Tripathi CO2 [Moles/Vol] 24.8 mmol/L Normal 21.0-32.0 [facility] Comment on above: Performed By: #### C MP ####[facility] Rswgtpscoy5917 [place] [address]Dr. Airam Tripathi Creatinine [Mass/Vol] 1.19 mg/dL Critically high 0.55-1.02 [facility] Comment on above: Performed By: #### C MP ####[facility] Nlmcppqgex0355 [place] [address]Dr. Airam Tripathi EGFR-AF CYPRIOT 56 mL/min/1.73m2 Critically low >=60 [facility] Comment on above: Performed By: #### C MP ####[facility] Scmownwpkl2911 [place] [address]Dr. Airam Tripathi EGFR-NON AF CYPRIOT 46 mL/min/1.73m2 Critically low >=60 [facility] Comment on above: Performed By: #### C MP ####[facility] Vqrkgrwwzb7039 [place] [address]Dr. Airam Tripathi Globulin (S) [Mass/Vol] 3.6 g/dL Normal [facility] Comment on above: Performed By: #### C MP ####[facility] Eeprsstvsr0163 [place] [address]Dr. Airam Tripathi Glucose [Mass/Vol] 75 mg/dL Normal 74-106 [facility] Comment on above: Performed By: #### C MP ####[facility] Qlrnxszykz7584 [place] [address]Dr. Airam Tripathi Potassium [Moles/Vol] 5.2 mmol/L Critically high 3.5-5.1 [facility] Comment on above: Performed By: #### C MP ####[facility] Jshmqukbvx5462 [place] [address]Dr. Airam Tripathi Protein [Mass/Vol] 6.7 g/dL Normal 6.4-8.2 [facility] Comment on above: Performed By: #### C MP ####[facility] Oszncjejaa8432 [place] [address]Dr. Airam Tripathi Sodium [Moles/Vol] 132 mmol/L Critically low 136-145 [facility] Comment on above: Performed By: #### C MP ####[facility] Swpddvhlqn5434 [place] [address]Dr. Airam Tripathi Urea nitrogen [Mass/Vol] 28.0 mg/dL Critically high 7.0-18.0 [facility] Comment on above: Performed By: #### C MP ####[facility] Abcpufkndn3775 [place] [address]Dr. Airam Tripathi Urea nitrogen/Creatinine [Mass ratio] 23.5 mg/mg Normal [facility] Comment on above: Performed By: #### C MP ####[facility] Xkiayxisfy3560 [place] [address]Dr. Airam Tripathi OSMOLALITYon 05-16-2022 Osmolality [Osmolality] 281 mosm/kg Normal 275-295 [facility] Comment on above: Performed By: #### O SMO ####[facility] Ixbwyfmsdu9984 [place] [phone]. Airam Deuce CBC AUTO DIFFon 05-13-2022 BASO # 0.1 103/ul Normal 0.0-0.1 [facility] Comment on above: Performed By: #### C BC ####[facility] Hieaarbsyw4198 [place] [address]Dr. Airam Tripathi Basophils/100 WBC (Bld) 0.5 % Normal 0.2-2.0 [facility] Comment on above: Performed By: #### C BC ####[facility] H[address]wn[address]yj[address] [place], [place] [address]Dr. Selenaneil Tripathi EO # 0.2 103/ul Normal 0.0-0.7 [facility] Comment on above: Performed By: #### C BC ####[facility] Kylvgabaye[address] [place], [place] [address]Dr. Airam Tripathi Eosinophils/100 WBC (Bld) 2.1 % Normal 0.9-7.0 [facility] Comment on above: Performed By: #### C BC ####[facility] Rtezpjejey[address] [place], [place] [address]Dr. Selenaneil Tripathi Erythrocyte distribution width (RBC) [Ratio] 12.9 % Normal 11.0-15.0 [facility] Comment on above: Performed By: #### C BC ####[facility] Yrlyoqludi[address] [place], [place] [address]Dr. Selenaneil Tripathi Hematocrit (Bld) [Volume fraction] 31.9 % Critically low 36.0-48.0 [facility] Comment on above: Performed By: #### C BC ####[facility] Awehaubuoy[address] [place], [place] [address]Dr. Airam Tripathi Hemoglobin (Bld) [Mass/Vol] 9.7 g/dL Critically low 12.0-16.0 [facility] Comment on above: Performed By: #### C BC ####[facility] Aeclsgunch[address] [place], [place] [address]Dr. Airam Tripathi IG # 0.06 10e3/ul Critically high 0.00-0.03 [facility] Comment on above: Performed By: #### C BC ####[facility] Dqzmwcvpwd8910 [place] [address]Dr. Airam Tripathi IG % 0.7 % Critically high 0.0-0.5 [facility] Comment on above: Performed By: #### C BC ####[facility] Isbhccutmn7304 [place] [address]Dr. Airam Tripathi LYMPH # 1.9 103/ul Normal 1.2-3.8 [facility] Comment on above: Performed By: #### C BC ####[facility] Vgjgbprmhr1852 [place] [address]Dr. Airam Deuce Lymphocytes/100 WBC (Bld) 21.1 % Normal 20.5-60.0 [facility] Comment on above: Performed By: #### C BC ####[facility] Jiixvlsdlv[address] [place], [place] [address]Dr. Selenaneil Tripathi MANUAL DIFF REQ NO Normal [facility] Comment on above: Performed By: #### C BC ####[facility] Iqplkpnkva[address] [place], [place] [address]Dr. Airam Tripathi MCH (RBC) [Entitic mass] 29.7 pg Normal 26.7-34.0 [facility] Comment on above: Performed By: #### C BC ####[facility] Kmqkoglbvb[address] [place] [address]Dr. Airam Tripathi MCHC (RBC) [Mass/Vol] 30.4 g/dL Normal 29.9-35.2 [facility] Comment on above: Performed By: #### C BC ####[facility] Xsrjkedjzo[address] [place], [place] [address]Dr. Airam Tripathi MCV (RBC) [Entitic vol] 97.6 fL Normal 81.0-99.0 [facility] Comment on above: Performed By: #### C BC ####[facility] Soyqphtygb[address] [place], [place] [address]Dr. Airam Deuce MONO # 0.6 103/ul Normal 0.3-0.8 [facility] Comment on above: Performed By: #### C BC ####[facility] Xqsdeptfrd80[address] [place] [id number]. Airam Tripathi Monocytes/100 WBC (Bld) 6.8 % Normal 1.7-12.0 [facility] Comment on above: Performed By: #### C BC ####[facility] Rgsjqtufcr5851 [place] [id number]. Airam Tripathi NEUT # 6.3 103/ul Normal 1.4-6.5 [facility] Comment on above: Performed By: #### C BC ####[facility] Qnldwldsix9956 [place] [id number]. Airam Tripathi Neutrophils/100 WBC (Bld) 68.8 % Normal 43.0-75.0 [facility] Comment on above: Performed By: #### C BC ####[facility] Wnugmxfpqh3708 [place] [address]Dr. Airam Tripathi Platelet mean volume (Bld) [Entitic vol] 9.6 fL Normal 9.5-13.5 [facility] Comment on above: Performed By: #### C BC ####[facility] Nlnotfhkep0213 [place] [id number]. Airam Tripathi PLT 295 103/ul Normal 150-450 [facility] Comment on above: Performed By: #### C BC ####[facility] Nmqyhuxumn6640 [place] [id number]. Airam Tripathi RBC 3.27 106/ul Critically low 4.20-5.40 [facility] Comment on above: Performed By: #### C BC ####[facility] Bkyubpbyao5717 [place] [id number]. Airam Tripathi WBC 9.1 103/ul Normal 4.0-11.0 [facility] Comment on above: Performed By: #### C BC ####[facility] Kjzpfwpmtk5430 [place] [address]DrKianna Selenaneil Tripathi PROF 14(COMP METB)on 022 Albumin [Mass/Vol] 3.3 g/dL Critically low 3.4-5.0 [facility] Comment on above: Performed By: #### C MP ####[facility] Nqmvnwobmd2655 [place] [address]Dr. Airam Tripathi Albumin/Globulin [Mass ratio] 1.0 {ratio} Normal [facility] Comment on above: Performed By: #### C MP ####[facility] Hzjnlzdtzh1819 [place] [address]Dr. Airam Tripathi ALP [Catalytic activity/Vol] 152 U/L Critically high 46-116 [facility] Comment on above: Performed By: #### C MP ####[facility] Xrssmctwod99[address] [place], [place] [address]Dr. Airam Tripathi ALT [Catalytic activity/Vol] 23 U/L Normal 14-59 [facility] Comment on above: Performed By: #### C MP ####[facility] Carqmhqede5[address] [place], [place] [address]Dr. Airam Tripathi Anion gap [Moles/Vol] 12.0 mmol/L Normal [facility] Comment on above: Performed By: #### C MP ####[facility] Dxxtnliczw517[address] [place], [place] [address]Dr. Airam Tripathi AST [Catalytic activity/Vol] 25 U/L Normal 15-37 [facility] Comment on above: Performed By: #### C MP ####[facility] Yfgglgbldk663[address] [place], [place] [address]Dr. Airam Tripathi Bilirubin [Mass/Vol] 0.2 mg/dL Normal 0.2-1.0 [facility] Comment on above: Performed By: #### C MP ####[facility] Blxhscivtx4125[address] [place], [place] [address]Dr. Airam Tripathi Calcium [Mass/Vol] 8.2 mg/dL Critically low 8.5-10.1 [facility] Comment on above: Performed By: #### C MP ####[facility] Dfipbftftn92[address] [place], [place] [address]Dr. Airam Tripathi Chloride [Moles/Vol] 100 mmol/L Normal 98-107 [facility] Comment on above: Performed By: #### C MP ####[facility] Zacdlpjqhu2921 [place] [id number]. Airam Tripathi CO2 [Moles/Vol] 24.8 mmol/L Normal 21.0-32.0 [facility] Comment on above: Performed By: #### C MP ####[facility] Gapnubmuze4306 [place] [id number]. Airam Tripathi Creatinine [Mass/Vol] 1.46 mg/dL Critically high 0.55-1.02 [facility] Comment on above: Performed By: #### C MP ####[facility] Bipxrgmuou1459 [place] [id number]. Airam Tripathi EGFR-AF CYPRIOT 44 mL/min/1.73m2 Critically low >=60 [facility] Comment on above: Performed By: #### C MP ####[facility] Zdiazrvqwh8[address] [place], [place] [address]Dr. Airam Tripathi EGFR-NON AF CYPRIOT 37 mL/min/1.73m2 Critically low >=60 [facility] Comment on above: Performed By: #### C MP ####[facility] Okkfkjvclg40[address] [place], [place] [address]Dr. Airam Tripathi Globulin (S) [Mass/Vol] 3.3 g/dL Normal [facility] Comment on above: Performed By: #### C MP ####[facility] Itfcimjavu6[address] [place], [place] [address]Dr. Airam Tripathi Glucose [Mass/Vol] 86 mg/dL Normal 74-106 [facility] Comment on above: Performed By: #### C MP ####[facility] Rzuklxudia84[address] [place], [place] [address]Dr. Airam Tripathi Potassium [Moles/Vol] 4.8 mmol/L Normal 3.5-5.1 [facility] Comment on above: Performed By: #### C MP ####[facility] Qglcwdnoth14[address] [place], [place] [address]Dr. Airam Tripathi Protein [Mass/Vol] 6.6 g/dL Normal 6.4-8.2 [facility] Comment on above: Performed By: #### C MP ####[facility] Ioqgadutty9953 [place] [address]Dr. Airam Tripathi Sodium [Moles/Vol] 132 mmol/L Critically low 136-145 [facility] Comment on above: Performed By: #### C MP ####[facility] Lnplvjfoqv413[address] [place], [place] [address]Dr. Airam Tripathi Urea nitrogen [Mass/Vol] 34.0 mg/dL Critically high 7.0-18.0 [facility] Comment on above: Performed By: #### C MP ####[facility] Tkzvlfckmc6260[address] [place], [place] [address]Dr. Airam Tripathi Urea nitrogen/Creatinine [Mass ratio] 23.3 mg/mg Normal [facility] Comment on above: Performed By: #### C MP ####[facility] Oqfjyymbqk416[address] [place], [place] [address]Dr. Airam Tripathi OSMOLALITYon 05-06-2022 Osmolality [Osmolality] 284 mosm/kg Normal 275-295 [facility] Comment on above: Performed By: #### O SMO ####[facility] Miiiokfafd4194[address] [place], [place] [address]Dr. Selenaneil Deuce XR LSPINE MIN 4 VIEWSon XR LSPINE MIN 4 VIEWS Normal [facility] CBC AUTO DIFFon 05-03-2022 BASO # 0.1 103/ul Normal 0.0-0.1 [facility] Comment on above: Performed By: #### C BC ####[facility] Jlhzmnwjkk[address] [place], [place] [address]Dr. Airam Tripathi Basophils/100 WBC (Bld) 0.6 % Normal 0.2-2.0 [facility] Comment on above: Performed By: #### C BC ####[facility] Powcglnqpx067[address] [place], [place] [address]Dr. Airam Tripathi EO # 0.3 103/ul Normal 0.0-0.7 [facility] Comment on above: Performed By: #### C BC ####[facility] Ibryuvidrl1005[address] [place], [place] [address]Dr. Airam Tripathi Eosinophils/100 WBC (Bld) 4.2 % Normal 0.9-7.0 [facility] Comment on above: Performed By: #### C BC ####[facility] Odcijflfcg2380[address] [place], [place] [address]Dr. Airam Tripathi Erythrocyte distribution width (RBC) [Ratio] 13.4 % Normal 11.0-15.0 [facility] Comment on above: Performed By: #### C BC ####[facility] Vblxiwkubz766[address] [place], [place] [address]Dr. Airam Tripathi Hematocrit (Bld) [Volume fraction] 30.7 % Critically low 36.0-48.0 [facility] Comment on above: Performed By: #### C BC ####[facility] Ozxkrgrgxm3334[address] [place], [place] [address]Dr. Airam Tripathi Hemoglobin (Bld) [Mass/Vol] 9.6 g/dL Critically low 12.0-16.0 [facility] Comment on above: Performed By: #### C BC ####[facility] Fgqgqplznu[address] [place], [place] [address]Dr. Airam Tripathi IG # 0.05 10e3/ul Critically high 0.00-0.03 [facility] Comment on above: Performed By: #### C BC ####[facility] Egcvpgblze2884[address] [place], [place] [address]Dr. Airam Tripathi IG % 0.6 % Critically high 0.0-0.5 [facility] Comment on above: Performed By: #### C BC ####[facility] Pkjwvpnrkm7924[address] [place], [place] [address]Dr. Airam Tripathi LYMPH # 1.9 103/ul Normal 1.2-3.8 [facility] Comment on above: Performed By: #### C BC ####[facility] Ylghavezul827[address] [place], [place] [address]Dr. Airam Tripathi Lymphocytes/100 WBC (Bld) 23.5 % Normal 20.5-60.0 [facility] Comment on above: Performed By: #### C BC ####[facility] Afczbllazt7357[address] [place], [place] [address]Dr. Airam Tripathi MANUAL DIFF REQ NO Normal [facility] Comment on above: Performed By: #### C BC ####[facility] Awmpotsugl1644 [place] [address]Dr. Airam Deuce MCH (RBC) [Entitic mass] 30.8 pg Normal 26.7-34.0 [facility] Comment on above: Performed By: #### C BC ####[facility] Rwypbaeems3817[address] [place], [place] [address]Dr. Selenaneil Deuce MCHC (RBC) [Mass/Vol] 31.3 g/dL Normal 29.9-35.2 [facility] Comment on above: Performed By: #### C BC ####[facility] Crnedpxwly6612[address] [place], [place] [address]Dr. Airam Tripathi MCV (RBC) [Entitic vol] 98.4 fL Normal 81.0-99.0 [facility] Comment on above: Performed By: #### C BC ####[facility] Oxrdgyhhvp2155[address] [place], [place] [address]Dr. Airam Tripathi MONO # 0.6 103/ul Normal 0.3-0.8 [facility] Comment on above: Performed By: #### C BC ####[facility] Jmgojldmjp40[address] [place], [place] [address]Dr. Airam Tripathi Monocytes/100 WBC (Bld) 7.4 % Normal 1.7-12.0 [facility] Comment on above: Performed By: #### C BC ####[facility] Aeqvnznemu922[address] [place], [place] [address]Dr. Airam Tripathi NEUT # 5.0 103/ul Normal 1.4-6.5 [facility] Comment on above: Performed By: #### C BC ####[facility] Kxcsokctyw9[address] [place], [place] [address]Dr. Airam Tripathi Neutrophils/100 WBC (Bld) 63.7 % Normal 43.0-75.0 [facility] Comment on above: Performed By: #### C BC ####[facility] Fwwgrjjqaq1701[address] [place], [place] [address]Dr. Airam Tripathi Platelet mean volume (Bld) [Entitic vol] 9.5 fL Normal 9.5-13.5 [facility] Comment on above: Performed By: #### C BC ####[facility] Spejgzggww6696 [place] [address]Dr. Airam Tripathi PLT 280 103/ul Normal 150-450 [facility] Comment on above: Performed By: #### C BC ####[facility] Lrmwxryqkf9515 [place] [address]Dr. Airam Tripathi RBC 3.12 106/ul Critically low 4.20-5.40 [facility] Comment on above: Performed By: #### C BC ####[facility] Vyhbrpzwsn6843 [place] [address]DrKianna Tripathi WBC 7.9 103/ul Normal 4.0-11.0 [facility] Comment on above: Performed By: #### C BC ####[facility] Woadtenlbw8095 [place] [address]DrKianna Tripathi PROF 14(COMP METB)on 022 Albumin [Mass/Vol] 3.1 g/dL Critically low 3.4-5.0 [facility] Comment on above: Performed By: #### C MP ####[facility] Cawbwmqtrb6428 [place] [address]DrKianna Tripathi Albumin/Globulin [Mass ratio] 0.9 {ratio} Normal [facility] Comment on above: Performed By: #### C MP ####[facility] Ulxfkgtmab5615 [place] [address]DrKianna Tripathi ALP [Catalytic activity/Vol] 140 U/L Critically high 46-116 [facility] Comment on above: Performed By: #### C MP ####[facility] Ehtvyxnics6865 [place] [address]DrKianna Tripathi ALT [Catalytic activity/Vol] 24 U/L Normal 14-59 [facility] Comment on above: Performed By: #### C MP ####[facility] Qyoisgytyn175[address] [place], [place] [address]DrKianna Tripathi Anion gap [Moles/Vol] 11.2 mmol/L Normal [facility] Comment on above: Performed By: #### C MP ####[facility] Txcxqjvajl269[address] [place], [place] [address]Dr. Airam Decue AST [Catalytic activity/Vol] 26 U/L Normal 15-37 [facility] Comment on above: Performed By: #### C MP ####[facility] Zndaatpnfx9585[address] [place], [place] [address]Dr. Selenaneil Deuce Bilirubin [Mass/Vol] 0.2 mg/dL Normal 0.2-1.0 [facility] Comment on above: Performed By: #### C MP ####[facility] Cvnxtmupno2624[address] [place], [place] [address]Dr. Airam Tripathi Calcium [Mass/Vol] 8.3 mg/dL Critically low 8.5-10.1 [facility] Comment on above: Performed By: #### C MP ####[facility] Blbmetqzvx906[address] [place], [place] [address]Dr. Airam Tripathi Chloride [Moles/Vol] 101 mmol/L Normal 98-107 [facility] Comment on above: Performed By: #### C MP ####[facility] Jyslhmjjjs690[address] [place], [place] [address]Dr. Airam Tripathi CO2 [Moles/Vol] 25.5 mmol/L Normal 21.0-32.0 [facility] Comment on above: Performed By: #### C MP ####[facility] Ijxguowjok6675[address] [place], [place] [address]Dr. Airam Tripathi Creatinine [Mass/Vol] 1.43 mg/dL Critically high 0.55-1.02 [facility] Comment on above: Performed By: #### C MP ####[facility] Ydqykofrue309[address] [place], [place] [address]DrKianna Tripathi EGFR-AF CYPRIOT 45 mL/min/1.73m2 Critically low >=60 [facility] Comment on above: Performed By: #### C MP ####[facility] Eybutngpqy2200[address] [place], [place] [address]Dr. Airam Tripathi EGFR-NON AF CYPRIOT 37 mL/min/1.73m2 Critically low >=60 [facility] Comment on above: Performed By: #### C MP ####[facility] Hqcqeduhtc4748 [place] [address]Dr. Airam Tripathi Globulin (S) [Mass/Vol] 3.3 g/dL Normal [facility] Comment on above: Performed By: #### C MP ####[facility] Mdwszkaiya7089 [place] [address]Dr. Airam Tripathi Glucose [Mass/Vol] 74 mg/dL Normal 74-106 [facility] Comment on above: Performed By: #### C MP ####[facility] Dwfydsbvhq415[address] [place], [place] [address]Dr. Airam Tripathi Potassium [Moles/Vol] 4.7 mmol/L Normal 3.5-5.1 [facility] Comment on above: Performed By: #### C MP ####[facility] Yskyzimgsn8397[address] [place], [place] [address]Dr. Airam Tripathi Protein [Mass/Vol] 6.4 g/dL Normal 6.4-8.2 [facility] Comment on above: Performed By: #### C MP ####[facility] Vhmowdmzom411[address] [place], [place] [address]Dr. Airam Tripathi Sodium [Moles/Vol] 133 mmol/L Critically low 136-145 [facility] Comment on above: Performed By: #### C MP ####[facility] Aarlrgzavb6887[address] [place], [place] [address]Dr. Airam Tripathi Urea nitrogen [Mass/Vol] 38.0 mg/dL Critically high 7.0-18.0 [facility] Comment on above: Performed By: #### C MP ####[facility] Dmmeezvsdi245[address] [place], [place] [address]Dr. Airam Tripathi Urea nitrogen/Creatinine [Mass ratio] 26.6 mg/mg Normal [facility] Comment on above: Performed By: #### C MP ####[facility] Gkzsgweokj6215[address] [place], [place] [address]Dr. Airam Tripathi OSMOLALITYon 04-29-2022 Osmolality [Osmolality] 292 mosm/kg Normal 275-295 [facility] Comment on above: Performed By: #### O SMO ####[facility] Prrfjbldcu9404[address] [place], [place] [address]Dr. Airam Tripathi CBC AUTO DIFFon 04-28-2022 BASO # 0.0 103/ul Normal 0.0-0.1 [facility] Comment on above: Performed By: #### C BC ####[facility] Afpduddzyq844[address] [place], [place] [address]Dr. Airam Deuce Basophils/100 WBC (Bld) 0.5 % Normal 0.2-2.0 [facility] Comment on above: Performed By: #### C BC ####[facility] Gymxgojtur9523[address] [place], [place] [address]Dr. Airam Tripathi EO # 0.2 103/ul Normal 0.0-0.7 [facility] Comment on above: Performed By: #### C BC ####[facility] Wrxdhrwmrb5[address] [place], [place] [address]Dr. Selenaneil Tripathi Eosinophils/100 WBC (Bld) 3.4 % Normal 0.9-7.0 [facility] Comment on above: Performed By: #### C BC ####[facility] Bywrcxtxxx544[address] [place], [place] [address]Dr. Airam Tripathi Erythrocyte distribution width (RBC) [Ratio] 13.4 % Normal 11.0-15.0 [facility] Comment on above: Performed By: #### C BC ####[facility] Hifhikpspl9[address] [place], [place] [address]Dr. Airam Tripathi Hematocrit (Bld) [Volume fraction] 31.6 % Critically low 36.0-48.0 [facility] Comment on above: Performed By: #### C BC ####[facility] Dvvbwclhdj332[address] [place], [place] [address]Dr. Airam Tripathi Hemoglobin (Bld) [Mass/Vol] 9.8 g/dL Critically low 12.0-16.0 [facility] Comment on above: Performed By: #### C BC ####[facility] Jdkkifixhk3355 [place] [address]Dr. Airam Tripathi IG # 0.02 10e3/ul Normal 0.00-0.03 [facility] Comment on above: Performed By: #### C BC ####[facility] Tyusfcdejb2492 [place] [address]Dr. Airam Tripathi IG % 0.3 % Normal 0.0-0.5 [facility] Comment on above: Performed By: #### C BC ####[facility] Zuwekgvycx0995 [place] [address]Dr. Airam Tripathi LYMPH # 1.3 103/ul Normal 1.2-3.8 [facility] Comment on above: Performed By: #### C BC ####[facility] Dmxewdhquh7062 [place] [address]Dr. Selenaneil Tripathi Lymphocytes/100 WBC (Bld) 21.7 % Normal 20.5-60.0 [facility] Comment on above: Performed By: #### C BC ####[facility] Mhsrdlqygr7673 [place] [address]Dr. Airam Tripathi MANUAL DIFF REQ NO Normal [facility] Comment on above: Performed By: #### C BC ####[facility] Oohbyfxyet5715 [place] [address]Dr. Airam Tripathi MCH (RBC) [Entitic mass] 30.7 pg Normal 26.7-34.0 [facility] Comment on above: Performed By: #### C BC ####[facility] Xsiljusfrj9130 [place] [address]Dr. Airam Tripathi MCHC (RBC) [Mass/Vol] 31.0 g/dL Normal 29.9-35.2 [facility] Comment on above: Performed By: #### C BC ####[facility] Ibwzzsdrri315[address] [place], [place] [address]Dr. Airam Tripathi MCV (RBC) [Entitic vol] 99.1 fL Critically high 81.0-99.0 [facility] Comment on above: Performed By: #### C BC ####[facility] Kaikefbzvk0857 [place] [address]Dr. Airam Tripathi MONO # 0.3 103/ul Normal 0.3-0.8 [facility] Comment on above: Performed By: #### C BC ####[facility] Qvsdbpdrde5133 [place] [address]Dr. Airam Tripathi Monocytes/100 WBC (Bld) 5.2 % Normal 1.7-12.0 [facility] Comment on above: Performed By: #### C BC ####[facility] Bbrviosicn8525[address] [place], [place] [address]Dr. Airam Tripathi NEUT # 4.1 103/ul Normal 1.4-6.5 [facility] Comment on above: Performed By: #### C BC ####[facility] Aedxpnghyt843[address] [place], [place] [address]Dr. Airam Deuce Neutrophils/100 WBC (Bld) 68.9 % Normal 43.0-75.0 [facility] Comment on above: Performed By: #### C BC ####[facility] Rayxltmctk6289[address] [place], [place] [address]Dr. Airam Tripathi Platelet mean volume (Bld) [Entitic vol] 9.8 fL Normal 9.5-13.5 [facility] Comment on above: Performed By: #### C BC ####[facility] Dyrpktyiue1806[address] [place], [place] [address]Dr. Airam Deuce PLT 329 103/ul Normal 150-450 [facility] Comment on above: Performed By: #### C BC ####[facility] Vgtbzonhfw777[address] [place], [place] [address]Dr. Airam Deuce RBC 3.19 106/ul Critically low 4.20-5.40 [facility] Comment on above: Performed By: #### C BC ####[facility] Amhqajhigx839[address] [place], [place] [address]Dr. Airam Deuce WBC 5.9 103/ul Normal 4.0-11.0 [facility] Comment on above: Performed By: #### C BC ####[facility] Tvawvetpyq[address] [place], [place] [address]Dr. Airam Tripathi PROF 14(COMP METB)on 022 Albumin [Mass/Vol] 2.9 g/dL Critically low 3.4-5.0 [facility] Comment on above: Performed By: #### C MP ####[facility] Chikqrwjdk7472 [place] [address]Dr. Airam Tripathi Albumin/Globulin [Mass ratio] 0.9 {ratio} Normal [facility] Comment on above: Performed By: #### C MP ####[facility] Llrwgpzxyo5679[address] [place], [place] [address]Dr. Airam Trpiathi ALP [Catalytic activity/Vol] 127 U/L Critically high 46-116 [facility] Comment on above: Performed By: #### C MP ####[facility] Omrxeymhsp67[address] [place], [place] [address]Dr. Airam Tripathi ALT [Catalytic activity/Vol] 22 U/L Normal 14-59 [facility] Comment on above: Performed By: #### C MP ####[facility] Ulmeotogjl7150[address] [place], [place] [address]Dr. Airam Tripathi Anion gap [Moles/Vol] 6.7 mmol/L Normal [facility] Comment on above: Performed By: #### C MP ####[facility] Xbobqaydwy06[address] [place], [place] [address]Dr. Airam Tripathi AST [Catalytic activity/Vol] 24 U/L Normal 15-37 [facility] Comment on above: Performed By: #### C MP ####[facility] Oikigxmzsk889[address] [place], [place] [address]Dr. Airam Tripathi Bilirubin [Mass/Vol] 0.2 mg/dL Normal 0.2-1.0 [facility] Comment on above: Performed By: #### C MP ####[facility] Rghztcvrsl9[address] [place], [place] [address]Dr. Airam Tripathi Calcium [Mass/Vol] 8.2 mg/dL Critically low 8.5-10.1 Th [facility] Comment on above: Performed By: #### C MP ####[facility] Peesbtmuzk75[address] [place], [place] [address]Dr. Airam Tripathi Chloride [Moles/Vol] 105 mmol/L Normal 98-107 The [facility] Comment on above: Performed By: #### C MP ####[facility] Quiztvdeiu2442 [place] [address]Dr. Airam Tripathi CO2 [Moles/Vol] 28.2 mmol/L Normal 21.0-32.0 [facility] Comment on above: Performed By: #### C MP ####[facility] Tlfkrtkxpb[address] [place], [place] [address]Dr. Airam Deuce Creatinine [Mass/Vol] 1.22 mg/dL Critically high 0.55-1.02 [facility] Comment on above: Performed By: #### C MP ####[facility] Shopermwfa[address] [place], [place] [address]Dr. Airam Tripathi EGFR-AF CYPRIOT 54 mL/min/1.73m2 Critically low >=60 [facility] Comment on above: Performed By: #### C MP ####[facility] Cqjtnevdyk[address] [place], [place] [address]Dr. Airam Deuce EGFR-NON AF CYPRIOT 45 mL/min/1.73m2 Critically low >=60 [facility] Comment on above: Performed By: #### C MP ####[facility] Czqaaxcemy[address] [place], [place] [address]Dr. Airam Tripathi Globulin (S) [Mass/Vol] 3.2 g/dL Normal [facility] Comment on above: Performed By: #### C MP ####[facility] Yjwfvyymuu8[address] [place], [place] [address]Dr. Airam Tripathi Glucose [Mass/Vol] 77 mg/dL Normal 74-106 [facility] Comment on above: Performed By: #### C MP ####[facility] Evijzznffe[address] [place], [place] [address]Dr. Airam Tripathi Potassium [Moles/Vol] 4.9 mmol/L Normal 3.5-5.1 [facility] Comment on above: Performed By: #### C MP ####[facility] Wwvyrklciz[address] [place], [place] [address]Dr. Airam Tripathi Protein [Mass/Vol] 6.1 g/dL Critically low 6.4-8.2 Th [facility] Comment on above: Performed By: #### C MP ####[facility] Nggvrlaijf88[address] [place], [place] [address]Dr. Airam Tripathi Sodium [Moles/Vol] 135 mmol/L Critically low 136-145 Th [facility] Comment on above: Performed By: #### C MP ####[facility] Hdlrkjzzxi199[address] [place], [place] [address]Dr. Airam Tripathi Urea nitrogen [Mass/Vol] 30.0 mg/dL Critically high 7.0-18.0 [facility] Comment on above: Performed By: #### C MP ####[facility] Qpsyekrfxr260[address] [place], [place] [address]Dr. Airam Tripathi Urea nitrogen/Creatinine [Mass ratio] 24.6 mg/mg Normal [facility] Comment on above: Performed By: #### C MP ####[facility] Xbhbgqmgeh34[address] [place], [place] [address]Dr. Airam Tripathi OSMOLALITYon 04-23-2022 Osmolality [Osmolality] 289 mosm/kg Normal 275-295 [facility] Comment on above: Performed By: #### O SMO ####[facility] Pwbksvvymn0[address] [place], [place] [address]Dr. Airam Tripathi CBC AUTO DIFFon 04-20-2022 BASO # 0.0 103/ul Normal 0.0-0.1 [facility] Comment on above: Performed By: #### C BC ####[facility] Ukawsmlxkz8[address] [place], [place] [address]Dr. Airam Deuce Basophils/100 WBC (Bld) 0.4 % Normal 0.2-2.0 [facility] Comment on above: Performed By: #### C BC ####[facility] Cocjusxaao[address] [place], [place] [address]Dr. Airam Deuce EO # 0.2 103/ul Normal 0.0-0.7 [facility] Comment on above: Performed By: #### C BC ####[facility] Ydfpnwodst2732 [place] [address]Dr. Airam Tripathi Eosinophils/100 WBC (Bld) 3.1 % Normal 0.9-7.0 [facility] Comment on above: Performed By: #### C BC ####[facility] Bttfahfxff49[address] [place], [place] [address]Dr. Airam Tripathi Erythrocyte distribution width (RBC) [Ratio] 13.8 % Normal 11.0-15.0 [facility] Comment on above: Performed By: #### C BC ####[facility] Tnpkwqreiq25[address] [place], [place] [address]Dr. Airam Tripathi Hematocrit (Bld) [Volume fraction] 29.5 % Critically low 36.0-48.0 [facility] Comment on above: Performed By: #### C BC ####[facility] Kawdpbywhw173[address] [place], [place] [address]Dr. Airam Tripathi Hemoglobin (Bld) [Mass/Vol] 9.2 g/dL Critically low 12.0-16.0 [facility] Comment on above: Performed By: #### C BC ####[facility] Yduuwlzlku326[address] [place], [place] [address]Dr. Airam Tripathi IG # 0.02 10e3/ul Normal 0.00-0.03 [facility] Comment on above: Performed By: #### C BC ####[facility] Uukvhxlipd[address] [place], [place] [address]Dr. Airam Tripathi IG % 0.4 % Normal 0.0-0.5 [facility] Comment on above: Performed By: #### C BC ####[facility] Izsdbsgmkp74[address] [place], [place] [address]Dr. Airam Tripathi LYMPH # 0.8 103/ul Critically low 1.2-3.8 [facility] Comment on above: Performed By: #### C BC ####[facility] Arrspfblmz25[address] [place], [place] [address]Dr. Airam Tripathi Lymphocytes/100 WBC (Bld) 14.0 % Critically low 20.5-60.0 [facility] Comment on above: Performed By: #### C BC ####[facility] Owecjaqlal65[address] [place] [id number]. Airam Tripathi MANUAL DIFF REQ NO Normal [facility] Comment on above: Performed By: #### C BC ####[facility] Lmkasxesfj5255 [place] [id number]. Airam Tripathi MCH (RBC) [Entitic mass] 30.4 pg Normal 26.7-34.0 [facility] Comment on above: Performed By: #### C BC ####[facility] Auhunzrlav07[address] [place] [address]Dr. Airam Tripathi MCHC (RBC) [Mass/Vol] 31.2 g/dL Normal 29.9-35.2 [facility] Comment on above: Performed By: #### C BC ####[facility] Finmqjtxlb5732 [place] [address]Dr. Airam Tripathi MCV (RBC) [Entitic vol] 97.4 fL Normal 81.0-99.0 [facility] Comment on above: Performed By: #### C BC ####[facility] Oeqvlbtzrh1299 [place] [address]Dr. Airam Deuce MONO # 0.3 103/ul Normal 0.3-0.8 [facility] Comment on above: Performed By: #### C BC ####[facility] Asclfcfztz8592 [place] [address]Dr. Selenaneil Tripathi Monocytes/100 WBC (Bld) 5.6 % Normal 1.7-12.0 [facility] Comment on above: Performed By: #### C BC ####[facility] Yrsporhikv1470 [place] [address]Dr. Airam Tripathi NEUT # 4.2 103/ul Normal 1.4-6.5 [facility] Comment on above: Performed By: #### C BC ####[facility] Yrkxiundno[address] [place], [place] [address]Dr. Selenaneil Tripathi Neutrophils/100 WBC (Bld) 76.5 % Critically high 43.0-75.0 [facility] Comment on above: Performed By: #### C BC ####[facility] Lzznjnuqgn8754 [place] [id number]. Airam Tripathi Platelet mean volume (Bld) [Entitic vol] 9.4 fL Critically low 9.5-13.5 [facility] Comment on above: Performed By: #### C BC ####[facility] Dlimnezcpj1003 [place] [id number]. Airam Tripathi PLT 250 103/ul Normal 150-450 [facility] Comment on above: Performed By: #### C BC ####[facility] Tmndglkeot7766 [place] [address]Dr. Airam Tripathi RBC 3.03 106/ul Critically low 4.20-5.40 [facility] Comment on above: Performed By: #### C BC ####[facility] Didwpveiqj7794 [place] [address]Dr. Airam Tripathi WBC 5.5 103/ul Normal 4.0-11.0 [facility] Comment on above: Performed By: #### C BC ####[facility] Shdtmucbmm4138 [place] [address]Dr. Airam Tripathi PROF 14(COMP METB)on 022 Albumin [Mass/Vol] 2.7 g/dL Critically low 3.4-5.0 [facility] Comment on above: Performed By: #### C MP ####[facility] Lblvxcqdaq0605 [place] [address]Dr. Airam Tripathi Albumin/Globulin [Mass ratio] 0.9 {ratio} Normal [facility] Comment on above: Performed By: #### C MP ####[facility] Gbctvjzwmv7733 [place] [address]Dr. Airam Tripathi ALP [Catalytic activity/Vol] 113 U/L Normal 46-116 [facility] Comment on above: Performed By: #### C MP ####[facility] Ybcqnwpuyd4878 [place] [address]Dr. Airam Tripathi ALT [Catalytic activity/Vol] 20 U/L Normal 14-59 [facility] Comment on above: Performed By: #### C MP ####[facility] Luwydqkcbh4160 [place] [address]Dr. Airam Tripathi Anion gap [Moles/Vol] 11.1 mmol/L Normal [facility] Comment on above: Performed By: #### C MP ####[facility] Qbwlqolqrr4[address] [place], [place] [address]Dr. Airam Tripathi AST [Catalytic activity/Vol] 19 U/L Normal 15-37 [facility] Comment on above: Performed By: #### C MP ####[facility] Ntgjymassx[address] [place], [place] [address]Dr. Airam Tripathi Bilirubin [Mass/Vol] 0.2 mg/dL Normal 0.2-1.0 [facility] Comment on above: Performed By: #### C MP ####[facility] Isximmksag37[address] [place], [place] [address]Dr. Airam Tripathi Calcium [Mass/Vol] 8.3 mg/dL Critically low 8.5-10.1 [facility] Comment on above: Performed By: #### C MP ####[facility] Pdhcljfwwc22[address] [place], [place] [address]Dr. Airam Tripathi Chloride [Moles/Vol] 104 mmol/L Normal 98-107 [facility] Comment on above: Performed By: #### C MP ####[facility] Jefehorfgw[address] [place], [place] [address]Dr. Airam Tripathi CO2 [Moles/Vol] 25.3 mmol/L Normal 21.0-32.0 [facility] Comment on above: Performed By: #### C MP ####[facility] Tvyveuknan[address] [place], [place] [address]Dr. Airam Tripathi Creatinine [Mass/Vol] 1.33 mg/dL Critically high 0.55-1.02 [facility] Comment on above: Performed By: #### C MP ####[facility] Jxsilbdgik9[address] [place], [place] [address]Dr. Airam Deuce EGFR-AF CYPRIOT 49 mL/min/1.73m2 Critically low >=60 [facility] Comment on above: Performed By: #### C MP ####[facility] Ttlrmfrvmn0679 [place] [address]Dr. Airam Tripathi EGFR-NON AF CYPRIOT 41 mL/min/1.73m2 Critically low >=60 [facility] Comment on above: Performed By: #### C MP ####[facility] Zmzwdrptlh8474 [place] [address]Dr. Airam Tripathi Globulin (S) [Mass/Vol] 3.1 g/dL Normal [facility] Comment on above: Performed By: #### C MP ####[facility] Tibwxivijf4270 [place] [address]Dr. Airam Tripathi Glucose [Mass/Vol] 88 mg/dL Normal 74-106 [facility] Comment on above: Performed By: #### C MP ####[facility] Xdaccmfuys559[address] [place], [place] [address]Dr. Airam Tripathi Potassium [Moles/Vol] 5.4 mmol/L Critically high 3.5-5.1 [facility] Comment on above: Performed By: #### C MP ####[facility] Ngxmbydexf36[address] [place], [place] [address]Dr. Airam Tripathi Protein [Mass/Vol] 5.8 g/dL Critically low 6.4-8.2 [facility] Comment on above: Performed By: #### C MP ####[facility] Nwrnibhcne8[address] [place], [place] [address]Dr. Airam Tripathi Sodium [Moles/Vol] 135 mmol/L Critically low 136-145 Th [facility] Comment on above: Performed By: #### C MP ####[facility] Ivozzxlqxl4626 [place] [address]Dr. Airam Tripathi Urea nitrogen [Mass/Vol] 38.0 mg/dL Critically high 7.0-18.0 [facility] Comment on above: Performed By: #### C MP ####[facility] Snbcyjdhsh4[address] [place], [place] [address]Dr. Airam Tripathi Urea nitrogen/Creatinine [Mass ratio] 28.6 mg/mg Normal [facility] Comment on above: Performed By: #### C MP ####[facility] Xmgdlpypby5013 [place] [address]Dr. Airam Tripathi OSMOLALITYon 04-15-2022 Osmolality [Osmolality] 284 mosm/kg Normal 275-295 [facility] Comment on above: Performed By: #### O SMO ####[facility] Uurckpclja9931 [place] [address]Dr. Airam Tripathi CBC AUTO DIFFon 04-14-2022 BASO # 0.0 103/ul Normal 0.0-0.1 [facility] Comment on above: Performed By: #### C BC ####[facility] Ocvyqrggiy9823[address] [place], [place] [address]Dr. Selenaneil Tripathi Basophils/100 WBC (Bld) 0.5 % Normal 0.2-2.0 [facility] Comment on above: Performed By: #### C BC ####[facility] Kmwcxvlqxm349[address] [place], [place] [address]Dr. Airam Deuce EO # 0.3 103/ul Normal 0.0-0.7 [facility] Comment on above: Performed By: #### C BC ####[facility] Zubcvmrrvt[address] [place], [place] [address]Dr. Selenaneil Tripathi Eosinophils/100 WBC (Bld) 3.6 % Normal 0.9-7.0 [facility] Comment on above: Performed By: #### C BC ####[facility] Gfiwtfqphv[address] [place], [place] [address]Dr. Airam Tripathi Erythrocyte distribution width (RBC) [Ratio] 13.4 % Normal 11.0-15.0 [facility] Comment on above: Performed By: #### C BC ####[facility] Smacokdzug[address] [place], [place] [address]Dr. Selenaneil Tripathi Hematocrit (Bld) [Volume fraction] 30.6 % Critically low 36.0-48.0 [facility] Comment on above: Performed By: #### C BC ####[facility] Yfcxckllcu9125[address] [place], [place] [address]Dr. Selenaneil Tripathi Hemoglobin (Bld) [Mass/Vol] 9.7 g/dL Critically low 12.0-16.0 [facility] Comment on above: Performed By: #### C BC ####[facility] Dbfzxusvbi4740 [place] [id number]. Ariam Tripathi IG # 0.08 10e3/ul Critically high 0.00-0.03 [facility] Comment on above: Performed By: #### C BC ####[facility] Ddfjnzyxym6726 [place] [id number]. Airam Tripathi IG % 0.9 % Critically high 0.0-0.5 [facility] Comment on above: Performed By: #### C BC ####[facility] Unwzxfwhpy8125 [place] [address]Dr. Airam Tripathi LYMPH # 2.1 103/ul Normal 1.2-3.8 [facility] Comment on above: Performed By: #### C BC ####[facility] Nmgiqkrupf9338 [place] [address]Dr. Selenaneil Tripathi Lymphocytes/100 WBC (Bld) 24.2 % Normal 20.5-60.0 [facility] Comment on above: Performed By: #### C BC ####[facility] Vijgrnjebq3507 [place] [address]Dr. Airam Tripathi MANUAL DIFF REQ NO Normal [facility] Comment on above: Performed By: #### C BC ####[facility] Lmteoajwgv6477 [place] [address]Dr. Airam Tripathi MCH (RBC) [Entitic mass] 30.4 pg Normal 26.7-34.0 [facility] Comment on above: Performed By: #### C BC ####[facility] Gzercyuwmk[address] [place], [place] [address]Dr. Airam Tripathi MCHC (RBC) [Mass/Vol] 31.7 g/dL Normal 29.9-35.2 [facility] Comment on above: Performed By: #### C BC ####[facility] Idwinrdwte0575 [place] [id number]. Airam Tripathi MCV (RBC) [Entitic vol] 95.9 fL Normal 81.0-99.0 [facility] Comment on above: Performed By: #### C BC ####[facility] Vqoklrdlef7672 [place] [address]Dr. Airam Tripathi MONO # 0.5 103/ul Normal 0.3-0.8 [facility] Comment on above: Performed By: #### C BC ####[facility] Kiwcdchpjy2066 [place] [address]Dr. Airam Tripathi Monocytes/100 WBC (Bld) 6.0 % Normal 1.7-12.0 [facility] Comment on above: Performed By: #### C BC ####[facility] Tqdtrxxxmy8849 [place] [id number]. Airam Tripathi NEUT # 5.6 103/ul Normal 1.4-6.5 [facility] Comment on above: Performed By: #### C BC ####[facility] Pwwpzifqbk6312 [place] [address]Dr. Airam Tripathi Neutrophils/100 WBC (Bld) 64.8 % Normal 43.0-75.0 [facility] Comment on above: Performed By: #### C BC ####[facility] Wrlzaodbai3441 [place] [phone]. Airam Tripathi Platelet mean volume (Bld) [Entitic vol] 9.2 fL Critically low 9.5-13.5 [facility] Comment on above: Performed By: #### C BC ####[facility] Tfxhhyfymt1394 [place] [id number]. Airam Tripathi PLT 296 103/ul Normal 150-450 [facility] Comment on above: Performed By: #### C BC ####[facility] Ntknmczqhm1379 [place] [address]Dr. Airam Tripathi RBC 3.19 106/ul Critically low 4.20-5.40 [facility] Comment on above: Performed By: #### C BC ####[facility] Ymhnbiejix1441 [place] [id number]. Airam Tripathi WBC 8.6 103/ul Normal 4.0-11.0 [facility] Comment on above: Performed By: #### C BC ####[facility] Rvohqtzffu6969 [place] [address]Dr. Airam Tripathi PROF 14(COMP METB)on 04-14- 022 Albumin [Mass/Vol] 3.2 g/dL Critically low 3.4-5.0 [facility] Comment on above: Performed By: #### C MP ####[facility] Djvuwbrvuy82[address] [place], [place] [address]Dr. Airam Tripathi Albumin/Globulin [Mass ratio] 1.0 {ratio} Normal [facility] Comment on above: Performed By: #### C MP ####[facility] Fcyibaismp70[address] [place], [place] [address]Dr. Airam Tripathi ALP [Catalytic activity/Vol] 126 U/L Critically high 46-116 [facility] Comment on above: Performed By: #### C MP ####[facility] Nqjzvezfsg55[address] [place], [place] [address]Dr. Airam Tripathi ALT [Catalytic activity/Vol] 27 U/L Normal 14-59 [facility] Comment on above: Performed By: #### C MP ####[facility] Iutgngmpch975[address] [place], [place] [address]Dr. Airam Tripathi Anion gap [Moles/Vol] 9.6 mmol/L Normal [facility] Comment on above: Performed By: #### C MP ####[facility] Zhnbjvynbo8434[address] [place], [place] [address]Dr. Airam Tripathi AST [Catalytic activity/Vol] 25 U/L Normal 15-37 [facility] Comment on above: Performed By: #### C MP ####[facility] Wntxbnyutu867[address] [place], [place] [address]Dr. Airam Tripathi Bilirubin [Mass/Vol] 0.3 mg/dL Normal 0.2-1.0 [facility] Comment on above: Performed By: #### C MP ####[facility] Perlntcgog4880[address] [place], [place] [address]Dr. Airam Tripathi Calcium [Mass/Vol] 8.1 mg/dL Critically low 8.5-10.1 [facility] Comment on above: Performed By: #### C MP ####[facility] Dwicapzzpx5999 [place] [id number]. Airam Tripathi Chloride [Moles/Vol] 100 mmol/L Normal 98-107 [facility] Comment on above: Performed By: #### C MP ####[facility] Pffsnrltms3547 [place] [phone]. Airam Tripathi CO2 [Moles/Vol] 26.5 mmol/L Normal 21.0-32.0 [facility] Comment on above: Performed By: #### C MP ####[facility] Tiknugnwjc4[address] [place], [place] [address]Dr. Airam Tripathi Creatinine [Mass/Vol] 1.52 mg/dL Critically high 0.55-1.02 [facility] Comment on above: Performed By: #### C MP ####[facility] Faiwvqiugy[address] [place], [place] [address]Dr. Airam Tripathi EGFR-AF CYPRIOT 42 mL/min/1.73m2 Critically low >=60 [facility] Comment on above: Performed By: #### C MP ####[facility] Fdtyikqcwq6[address] [place], [place] [address]Dr. Airam Tripathi EGFR-NON AF CYPRIOT 35 mL/min/1.73m2 Critically low >=60 [facility] Comment on above: Performed By: #### C MP ####[facility] Rucyyrmmqf[address] [place], [place] [address]Dr. Airam Tripathi Globulin (S) [Mass/Vol] 3.3 g/dL Normal [facility] Comment on above: Performed By: #### C MP ####[facility] Vjwuesxttq5311 [place] [address]Dr. Airam Tripathi Glucose [Mass/Vol] 75 mg/dL Normal 74-106 [facility] Comment on above: Performed By: #### C MP ####[facility] Hangzvsjir01[address] [place], [place] [address]Dr. Airam Tripathi Potassium [Moles/Vol] 4.1 mmol/L Normal 3.5-5.1 [facility] Comment on above: Performed By: #### C MP ####[facility] Vpehkdngmj3277 [place] [id number]. Airam Tripathi Protein [Mass/Vol] 6.5 g/dL Normal 6.4-8.2 [facility] Comment on above: Performed By: #### C MP ####[facility] Kshgwugxdt5449 [place] [phone]. Selenaneil Deuce Sodium [Moles/Vol] 132 mmol/L Critically low 136-145 Th [facility] Comment on above: Performed By: #### C MP ####[facility] Qjhrqtdedq9558 [place] [phone]. Airam Deuce Urea nitrogen [Mass/Vol] 40.0 mg/dL Critically high 7.0-18.0 [facility] Comment on above: Performed By: #### C MP ####[facility] Ezrnwhcspf5548 [place] [address]Dr. Airam Tripathi Urea nitrogen/Creatinine [Mass ratio] 26.3 mg/mg Normal [facility] Comment on above: Performed By: #### C MP ####[facility] Rimcnzzour6724 [place] [id number]. Airam Deuce OSMOLALITYon 04-10-2022 Osmolality [Osmolality] 280 mosm/kg Normal 275-295 [facility] Comment on above: Performed By: #### O SMO ####[facility] Yzictqjotj[address] [place], [place] [address]Dr. Selenaneil Deuce PTH INTACTon 04-09-2022 PTH, Intact 89 pg/mL Critically high 15-65 [facility] Comment on above: Performed By: #### P THINT ####[facility] Kybidsrujv4255 [place] [id number]. Airam Tripathi CBC W MANUAL DIFFon 04-08-20 22 ATYPICAL LYMPH # Normal [facility] Comment on above: Performed By: #### C BCMAN ####[facility] Qoyhelmwmk7243 [place] [address]Dr. Airam Tripathi ATYPICAL LYMPH % Normal [facility] Comment on above: Performed By: #### C BCMAN ####[facility] Tkoaxzxtea8072 [place] [address]Dr. Yilan Tripathi BAND # Normal 0.0-0.3 [facility] Comment on above: Performed By: #### C BCMAN ####[facility] Ukrznovlew6258 [place] [address]Dr. Yilan Tripathi BAND % Normal 0-5 [facility] Comment on above: Performed By: #### C BCMAN ####[facility] Mpshzcoyqt[address] [place], [place] [address]Dr. Yilan Tripathi BASOM # 0.00 103/ul Normal 0.00-0.10 [facility] Comment on above: Performed By: #### C BCMAN ####[facility] G[address]wyvmyfcq[address] [place], [place] [address]Dr. Yilan Tripathi BASOM % 0.0 % Critically low 0.2-2.0 [facility] Comment on above: Performed By: #### C BCMAN ####[facility] Fykouajefe[address] [place], [place] [address]Dr. Yilan Tripathi BLAST # Normal [facility] Comment on above: Performed By: #### C BCGERALDINE ####[facility] Foxst[address]wsf[address] [place], [place] [address]Dr. Yilan Tripathi BLAST % Normal [facility] Comment on above: Performed By: #### C BCMAN ####[facility] Xxnrxcjcar[address] [place], [place] [address]Dr. Yilan Tripathi CORRECTED WBC Normal 4.0-11.0 [facility] Comment on above: Performed By: #### C BCMAN ####[facility] Dxudiklcye[address] [place], [place] [address]Dr. Yilan Tripathi EOS # 0.00 103/ul Normal 0.00-0.70 [facility] Comment on above: Performed By: #### C BCMAN ####[facility] Vqknsucnnc[address] [place], [place] [address]Dr. Yilan Tripathi EOS% 0.0 % Critically low 0.9-7.0 [facility] Comment on above: Performed By: #### C BCMAN ####[facility] Fxnwrznksp29[address] [place] [id number]. Airam Tripathi HCT 29.7 % Critically low 36.0-48.0 [facility] Comment on above: Performed By: #### C CHRISTEN ####[facility] Byxztfaxvx8086 [place] [id number]. Airam Tripathi HGB 9.5 g/dl Critically low 12.0-16.0 [facility] Comment on above: Performed By: #### C CHRISTEN ####[facility] Pjotzbhlol[address] [place] [address]Dr. Airam Tripathi LYMPHM # 0.42 103/ul Critically low 1.20-3.80 [facility] Comment on above: Performed By: #### C CHRISTEN ####[facility] Tphqaiiytu[address] [place], [place] [address]Dr. Airam Tripathi LYMPHM% 7.0 % Critically low 20.5-60.0 [facility] Comment on above: Performed By: #### C CHRISTEN ####[facility] Yazgdlmfdm[address] [place] [address]Dr. Airam Tripathi MCH 30.9 pg Normal 26.7-34.0 [facility] Comment on above: Performed By: #### C CHRISTEN ####[facility] Ypmbhbuzet[address] [place], [place] [address]Dr. Airam Tripathi MCHC 32.0 g/dl Normal 29.9-35.2 [facility] Comment on above: Performed By: #### C CHRISTEN ####[facility] Cfqpegfnfs7771 [place] [id number]. Airam Tripathi MCV 96.7 fL Normal 81.0-99.0 [facility] Comment on above: Performed By: #### C CHRISTEN ####[facility] Unbpqlimfq16[address] [place] [address]Dr. Airam Tripathi METAMYELOCYTE # Normal [facility] Comment on above: Performed By: #### C CHRISTEN ####[facility] Eeycozgysn2388 [place] [id number]. Airam Tripathi METAMYELOCYTE % Normal [facility] Comment on above: Performed By: #### C CHRISTEN ####[facility] Bgacpzftyk1116 [place] [phone]. Airam Tripathi MONOM# 0.36 103/ul Normal 0.30-0.80 [facility] Comment on above: Performed By: #### C CHRISTEN ####[facility] Nblsvjydbs5531 [place] [id number]. Airam Tripathi MONOM% 6.0 % Normal 1.7-12.0 [facility] Comment on above: Performed By: #### C CHRISTEN ####[facility] Xomajwhqtw2081 [place] [address]Dr. Airam Tripathi MPV 9.5 fL Normal 9.5-13.5 [facility] Comment on above: Performed By: #### C CHRISTEN ####[facility] Bwasmvabwa[address] [place], [place] [address]Dr. Airam Tripathi MYELOCYTE # Normal [facility] Comment on above: Performed By: #### C CHRISTEN ####[facility] Bmarxozbsi5[address] [place], [place] [address]Dr. Airam Tripathi MYELOCYTE % Normal [facility] Comment on above: Performed By: #### Jodee VELÁSQUEZ ####[facility] Zpbpnhfzkq[address] [place], [place] [address]Dr. Airam Tripathi NRBC Normal [facility] Comment on above: Performed By: #### Jodee VELÁSQUEZ ####[facility] Hsinwjyevy9437 [place] [phone]. Airam Tripathi PLT 185 103/ul Normal 150-450 [facility] Comment on above: Performed By: #### C CHRISTEN ####[facility] Bgiwbwyrkf[address] [place], [place] [address]Dr. Airam Tripathi RBC 3.07 106/ul Critically low 4.20-5.40 [facility] Comment on above: Performed By: #### C CHRISTEN ####[facility] Xayvkgmjht3679 [place] [phone]. Airam Tripathi RDW 13.6 % Normal 11.0-15.0 [facility] Comment on above: Performed By: #### C CHRISTEN ####[facility] Zhazaxlgbq9028 [place] [address]Dr. Airam Tripathi SEG # 5.22 103/ul Normal 1.40-6.50 [facility] Comment on above: Performed By: #### C CHRISTEN ####[facility] Wgndbhqwlr7972 [place] [address]Dr. Airam Tripathi SEG % 87.0 % Critically high 43.0-75.0 [facility] Comment on above: Performed By: #### C CHRISTEN ####[facility] Dxjzxzfhfu6915 [place] [address]Dr. Airam Deuce WBC 6.0 103/ul Normal 4.0-11.0 [facility] Comment on above: Performed By: #### C CHRISTEN ####[facility] Bterizyjcv5220 [place] [address]Dr. Airam Tripathi FREE THYROXINE INDEX T7on FTI 1.57 Normal 1.30-4.50 [facility] Comment on above: Performed By: #### T 7, TSH, CMP ####[facility] Lrwugjyxoy3336 [place] [address]Dr. Airam Tripathi T3U 32.0 % Normal 30.0-39.0 [facility] Comment on above: Performed By: #### T 7, TSH, CMP ####[facility] Clatmaulwo7938 [place] [phone]. Airam Tripathi T4 [Mass/Vol] 4.90 ug/dL Normal 4.80-13.90 [facility] Comment on above: Performed By: #### T 7, TSH, CMP ####[facility] Otdntnyixp2370 [place] [phone]. Airam Tripathi PROF 14(COMP METB)on 022 Albumin [Mass/Vol] 3.0 g/dL Critically low 3.4-5.0 e [facility] Comment on above: Performed By: #### T 7, TSH, CMP ####[facility] Kipdorzgte6637 [place] [phone]. Airam Tripathi Albumin/Globulin [Mass ratio] 1.0 {ratio} Normal [facility] Comment on above: Performed By: #### T 7, TSH, CMP ####[facility] Dqjmykbcoc[address] [place], [place] [address]Dr. Airam Tripathi ALP [Catalytic activity/Vol] 106 U/L Normal 46-116 [facility] Comment on above: Performed By: #### T 7, TSH, CMP ####[facility] Icvwbikpmx563[address] [place], [place] [address]Dr. Airam Deuce ALT [Catalytic activity/Vol] 20 U/L Normal 14-59 [facility] Comment on above: Performed By: #### T 7, TSH, CMP ####[facility] Zdycmjzjtp654[address] [place], [place] [address]Dr. Airam Tripathi Anion gap [Moles/Vol] 10.8 mmol/L Normal [facility] Comment on above: Performed By: #### T 7, TSH, CMP ####[facility] Bdwkchnuls5[address] [place], [place] [address]Dr. Selenaneil Tripathi AST [Catalytic activity/Vol] 19 U/L Normal 15-37 [facility] Comment on above: Performed By: #### T 7, TSH, CMP ####[facility] Cxwvkulqai38[address] [place], [place] [address]Dr. Airam Tripathi Bilirubin [Mass/Vol] 0.3 mg/dL Normal 0.2-1.0 [facility] Comment on above: Performed By: #### T 7, TSH, CMP ####[facility] Wrauawuwic[address] [place], [place] [address]Dr. Airam Tripathi Calcium [Mass/Vol] 8.0 mg/dL Critically low 8.5-10.1 [facility] Comment on above: Performed By: #### T 7, TSH, CMP ####[facility] Tggugkxxdd13[address] [place], [place] [address]Dr. Airam Tripathi Chloride [Moles/Vol] 100 mmol/L Normal 98-107 [facility] Comment on above: Performed By: #### T 7, TSH, CMP ####[facility] Dlkiaroysy5172 [place] [phone]. Airam Deuce CO2 [Moles/Vol] 24.3 mmol/L Normal 21.0-32.0 [facility] Comment on above: Performed By: #### T 7, TSH, CMP ####[facility] Zuukvyiadz1240 [place] [phone]. Selenaneil Tripathi Creatinine [Mass/Vol] 1.12 mg/dL Critically high 0.55-1.02 [facility] Comment on above: Performed By: #### T 7, TSH, CMP ####[facility] Uplmvldxsl0197 [place] [phone]. Airam Deuce EGFR-AF CYPRIOT 60 mL/min/1.73m2 Normal >=60 [facility] Comment on above: Performed By: #### T 7, TSH, CMP ####[facility] Rxvezpryjb09[address] [place], [place] [address]Dr. Airam Tripathi EGFR-NON AF CYPRIOT 50 mL/min/1.73m2 Critically low >=60 [facility] Comment on above: Performed By: #### T 7, TSH, CMP ####[facility] Ubofucvtfg[address] [place], [place] [address]Dr. Selenaneil Tripathi Globulin (S) [Mass/Vol] 3.0 g/dL Normal [facility] Comment on above: Performed By: #### T 7, TSH, CMP ####[facility] Ehvdqaqenw3167[address] [place], [place] [address]Dr. Airam Tripathi Glucose [Mass/Vol] 76 mg/dL Normal 74-106 [facility] Comment on above: Performed By: #### T 7, TSH, CMP ####[facility] Lcaxxwxtqq7575 [place] [phone]. Selenaneil Tripathi Potassium [Moles/Vol] 4.1 mmol/L Normal 3.5-5.1 [facility] Comment on above: Performed By: #### T 7, TSH, CMP ####[facility] Izjzbyubkj[address] [place], [place] [address]Dr. Airam Tripathi Protein [Mass/Vol] 6.0 g/dL Critically low 6.4-8.2 Th [facility] Comment on above: Performed By: #### T 7, TSH, CMP ####[facility] Azongqteeb[address] [place], [place] [address]Dr. Airam Tripathi Sodium [Moles/Vol] 131 mmol/L Critically low 136-145 Th [facility] Comment on above: Performed By: #### T 7, TSH, CMP ####[facility] Hgozrfsnaa117[address] [place], [place] [address]Dr. Airam Tripathi Urea nitrogen [Mass/Vol] 32.0 mg/dL Critically high 7.0-18.0 [facility] Comment on above: Performed By: #### T 7, TSH, CMP ####[facility] Xjioidaudq3739[address] [place], [place] [address]Dr. Airam Tripathi Urea nitrogen/Creatinine [Mass ratio] 28.6 mg/mg Normal [facility] Comment on above: Performed By: #### T 7, TSH, CMP ####[facility] Ligflzumfl5[address] [place], [place] [address]Dr. Airam Tripathi TSHon 04-08-2022 TSH 0.027 uIU/mL Critically low 0.358-3.740 [facility] Comment on above: Performed By: #### T 7, TSH, CMP ####[facility] Zfmndpmify29[address] [place], [place] [address]Dr. Airam Tripathi UA RANDOMon 04-08-2022 Bilirubin Ql (U) Negative Normal NEGATIVE [facility] Comment on above: Performed By: #### U A ####[facility] Dkknnpsgzw[address] [place], [place] [address]Dr. Airam Tripathi Clarity (U) CLEAR Normal CLEAR [facility] Comment on above: Performed By: #### U A ####[facility] Qonjdmmtdf29[address] [place], [place] [address]Dr. Airam Tripathi Color (U) LT. YELLOW Normal YELLOW [facility] Comment on above: Performed By: #### U A ####[facility] Wrxhumxipn[address] [place], [place] [address]Dr. Airam Tripathi Glucose Ql (U) Negative Normal NEGATIVE [facility] Comment on above: Performed By: #### U A ####[facility] Puktntrxlc1909 [place] [address]Dr. Airam Tripathi Hemoglobin Ql (U) Negative Normal NEGATIVE [facility] Comment on above: Performed By: #### U A ####[facility] Fsykyrdono7947 [place] [address]Dr. Airam Tripathi Ketones Ql (U) Negative Normal NEGATIVE [facility] Comment on above: Performed By: #### U A ####[facility] Bqexnoqlld10[address] [place], [place] [address]Dr. Airam Tripathi LEUKOCYTES Negative Normal NEGATIVE [facility] Comment on above: Performed By: #### U A ####[facility] Ezprrsylrq[address] [place], [place] [address]Dr. Airam Tripathi Nitrite Ql (U) Negative Normal NEGATIVE [facility] Comment on above: Performed By: #### U A ####[facility] Oaawmvtjom34[address] [place], [place] [address]Dr. Airam Tripathi pH (U) 6.0 [pH] Normal 5-9 [facility] Comment on above: Performed By: #### U A ####[facility] Ozuvqaazlc6[address] [place], [place] [address]Dr. Airam Tripathi SPEC GRAVITY 1.010 Normal 1.005-<=1.02 5 [facility] Comment on above: Performed By: #### U A ####[facility] Xvpxurmafi650[address] [place], [place] [address]Dr. Airam Tripathi UA PROTEIN Negative Normal NEGATIVE/ TRACE [facility] Comment on above: Performed By: #### U A ####[facility] Stbfpbsquw678[address] [place], [place] [address]Dr. Airam Tripathi Urobilinogen Qn (U) 0.2 {Ligia'U}/dL Normal 0.2 - 1. 0 [facility] Comment on above: Performed By: #### U A ####[facility] Tsmvymlpkq[address] [place], [place] [address]Dr. Airam Deuce URINE T PROTEIN CREAT RATIOo n 04-08-2022 UR PROT CREAT RAT 0.32 Normal [facility] Comment on above: Performed By: #### U RTPCR ####[facility] Dcruvfbotx3169 [place] [address]Dr. Airam Tripathi UR TOTAL PROTEIN <6.0 Normal <=12.0 [facility] Comment on above: Performed By: #### U RTPCR ####[facility] Kiihuuuyzd95[address] [place], [place] [address]Dr. Airam Tripathi URINE CREAT 18.75 mg/dL Critically low 20.00-300.00 [facility] Comment on above: Performed By: #### U RTPCR ####[facility] Rzmryjbmho[address] [place], [place] [address]Dr. Airam Tripathi FERRITINon 04-06-2022 Ferritin [Mass/Vol] 99.0 ng/mL Normal 8.0-252.0 [facility] Comment on above: Performed By: #### F ETIBC, VITAD, FERR ####[facility] Sdrvkoixeg65[address] [place], [place] [address]Dr. Airam Tripathi IRON AND TIBCon 04-06-2022 % SATURATION 15.4 % Normal [facility] Comment on above: Performed By: #### F ETIBC, VITAD, FERR ####[facility] Nvcdtxqmhv7320 [place] [address]Dr. Airam Tripathi Iron [Mass/Vol] 43.0 ug/dL Critically low 50.0-170.0 [facility] Comment on above: Performed By: #### F ETIBC, VITAD, FERR ####[facility] Iejojlmgdy[address] [place], [place] [address]Dr. Airam Tripathi TIBC DIRECT 280.0 ug/dL Normal 250.0-450.0 [facility] Comment on above: Performed By: #### F ETIBC, VITAD, FERR ####[facility] Fosfedposn[address] [place], [place] [address]Dr. Airam Tripathi PROF 14(COMP METB)on 022 Albumin [Mass/Vol] 3.2 g/dL Critically low 3.4-5.0 Th e [facility] Comment on above: Performed By: #### C MP, URIC ####[facility] Xdhsnttwbu7280 [place] [id number]. Airam Tripathi Albumin/Globulin [Mass ratio] 1.0 {ratio} Normal [facility] Comment on above: Performed By: #### C MP, URIC ####[facility] Xhlaeywmwk0560 [place], [place] [address]Fl. Airam Tripathi ALP [Catalytic activity/Vol] 118 U/L Critically high 46-116 [facility] Comment on above: Performed By: #### C MP, URIC ####[facility] Ktnilqdiad7845 [place] [id number]. Airam Tripathi ALT [Catalytic activity/Vol] 24 U/L Normal 14-59 [facility] Comment on above: Performed By: #### C MP, URIC ####[facility] Ujmmfhhknf0977 [place] [address]Dr. Airam Tripathi Anion gap [Moles/Vol] 14.4 mmol/L Normal [facility] Comment on above: Performed By: #### C MP, URIC ####[facility] Swkaccyqjw4080 [place] [address]Dr. Airam Tripathi AST [Catalytic activity/Vol] 21 U/L Normal 15-37 [facility] Comment on above: Performed By: #### C MP, URIC ####[facility] Ckjtpkczcx5523 [place] [address]Dr. Airam Tripathi Bilirubin [Mass/Vol] 0.3 mg/dL Normal 0.2-1.0 [facility] Comment on above: Performed By: #### C MP, URIC ####[facility] Bcrriaemeo4723 [place] [address]Dr. Airam Tripathi Calcium [Mass/Vol] 8.0 mg/dL Critically low 8.5-10.1 [facility] Comment on above: Performed By: #### C MP, URIC ####[facility] Ptinjpligf3208 [place] [address]Dr. Airam Tripathi Chloride [Moles/Vol] 98 mmol/L Normal 98-107 [facility] Comment on above: Performed By: #### C MP, URIC ####[facility] Haicmzgusp4353 [place] [address]Dr. Selenaneil Deuce CO2 [Moles/Vol] 22.0 mmol/L Normal 21.0-32.0 [facility] Comment on above: Performed By: #### C MP, URIC ####[facility] Llansmumtn[address] [place], [place] [address]Dr. Airam Tripathi Creatinine [Mass/Vol] 1.86 mg/dL Critically high 0.55-1.02 [facility] Comment on above: Performed By: #### C MP, URIC ####[facility] S[address]xnwpmzgx94[address] [place], [place] [address]Dr. Airam Tripathi EGFR-AF CYPRIOT 33 mL/min/1.73m2 Critically low >=60 [facility] Comment on above: Performed By: #### C MP, URIC ####[facility] Uhqvsrhbzh[address] [place], [place] [address]Dr. Airam Tripathi EGFR-NON AF CYPRIOT 28 mL/min/1.73m2 Critically low >=60 [facility] Comment on above: Performed By: #### C MP, URIC ####[facility] Frrahjzvub697[address] [place], [place] [address]Dr. Airam Tripathi Globulin (S) [Mass/Vol] 3.1 g/dL Normal [facility] Comment on above: Performed By: #### C MP, URIC ####[facility] Yjbkzeqvae02[address] [place], [place] [address]Dr. Airam Tripathi Glucose [Mass/Vol] 93 mg/dL Normal 74-106 [facility] Comment on above: Performed By: #### C MP, URIC ####[facility] Qfiukzrlrt4[address] [place], [place] [address]Dr. Airam Tripathi Potassium [Moles/Vol] 4.4 mmol/L Normal 3.5-5.1 [facility] Comment on above: Performed By: #### C MP, URIC ####[facility] Tooqwckviu7286[address] [place], [place] [address]Dr. Airam Tripathi Protein [Mass/Vol] 6.3 g/dL Critically low 6.4-8.2 Th [facility] Comment on above: Performed By: #### C MP, URIC ####[facility] Tplzascdkr5[address] [place], [place] [address]Dr. Airam Tripathi Sodium [Moles/Vol] 130 mmol/L Critically low 136-145 Th [facility] Comment on above: Performed By: #### C MP, URIC ####[facility] Wzteohaywv36[address] [place], [place] [address]Dr. Airam Tripathi Urea nitrogen [Mass/Vol] 49.0 mg/dL Critically high 7.0-18.0 [facility] Comment on above: Performed By: #### C MP, URIC ####[facility] Zdkuectctx9[address] [place], [place] [address]Dr. Airam Tripathi Urea nitrogen/Creatinine [Mass ratio] 26.3 mg/mg Normal [facility] Comment on above: Performed By: #### C MP, URIC ####[facility] Zpgwejzsta[address] [place], [place] [address]Dr. Airam Tripathi URIC ACID SERUMon 04-06-2022 Urate [Mass/Vol] 6.5 mg/dL Critically high 2.6-6.0 [facility] Comment on above: Performed By: #### C MP, URIC ####[facility] Adnpevuwvm814[address] [place], [place] [address]Dr. Airam Tripathi VITAMIN D 25 OHon 04-06-2022 VIT D 25-OH 74.5 ng/mL Normal [facility] Comment on above: Performed By: #### F ETIBC, VITAD, FERR ####[facility] Qggzjkyzld4[address] [place], [place] [address]Dr. Airam Tripathi VIT D RANGES SEE BELOW Normal [facility] Comment on above: Result Comment: <20 ng/mL Vit D deficient 20 - <30 ng/mL Vit D insufficient 30 - 100 ng/mL Vit D sufficient >100 ng/mL Potential Toxicity Performed By: #### F ETIBC, VITAD, FERR ####[facility] Jmpvelwjyq[address] [place], [place] [address]Dr. Airam Tripathi OSMOLALITYon 04-01-2022 Osmolality [Osmolality] 284 mosm/kg Normal 275-295 [facility] Comment on above: Performed By: #### O SMO ####[facility] Mesvzcbwvn4[address] [place] [address]Dr. Airam Tripathi CBC AUTO DIFFon 03-31-2022 BASO # 0.0 103/ul Normal 0.0-0.1 [facility] Comment on above: Performed By: #### C BC ####[facility] Xjanpucznd[address] [place], [place] [address]Dr. Airam Deuce Basophils/100 WBC (Bld) 0.3 % Normal 0.2-2.0 [facility] Comment on above: Performed By: #### C BC ####[facility] Qimucsjgkd[address] [place], [place] [address]Dr. Airam Tripathi EO # 0.1 103/ul Normal 0.0-0.7 [facility] Comment on above: Performed By: #### C BC ####[facility] Eeamyosfpo2[address] [place], [place] [address]Dr. Airam Tripathi Eosinophils/100 WBC (Bld) 2.0 % Normal 0.9-7.0 [facility] Comment on above: Performed By: #### C BC ####[facility] Qkqkvoyicw[address] [place], [place] [address]Dr. Airam Tripathi Erythrocyte distribution width (RBC) [Ratio] 13.5 % Normal 11.0-15.0 [facility] Comment on above: Performed By: #### C BC ####[facility] W[address]xnmhbl[address] [place], [place] [address]Dr. Airam Tripathi Hematocrit (Bld) [Volume fraction] 32.5 % Critically low 36.0-48.0 [facility] Comment on above: Performed By: #### C BC ####[facility] Gbecmyydjm[address] [place], [place] [address]Dr. Airam Tripathi Hemoglobin (Bld) [Mass/Vol] 10.1 g/dL Critically low 12.0-16.0 [facility] Comment on above: Performed By: #### C BC ####[facility] Rzzrzhukht14[address] [place] [id number]. Airam Tripathi IG # 0.03 10e3/ul Normal 0.00-0.03 [facility] Comment on above: Performed By: #### C BC ####[facility] Gsvqcuhwgt3290 [place] [id number]. Airam Tripathi IG % 0.4 % Normal 0.0-0.5 [facility] Comment on above: Performed By: #### C BC ####[facility] Qaxowcwwmn33[address] [place] [address]Dr. Airam Tripathi LYMPH # 1.6 103/ul Normal 1.2-3.8 [facility] Comment on above: Performed By: #### C BC ####[facility] Sgcvvwuwiy7985 [place] [address]Dr. Selenaneil Tripathi Lymphocytes/100 WBC (Bld) 22.6 % Normal 20.5-60.0 [facility] Comment on above: Performed By: #### C BC ####[facility] Inzxqjwnmb8137 [place] [address]Dr. Airam Tripathi MANUAL DIFF REQ NO Normal [facility] Comment on above: Performed By: #### C BC ####[facility] Sgjeuffcua2517 [place] [address]Dr. Airam Tripathi MCH (RBC) [Entitic mass] 30.5 pg Normal 26.7-34.0 [facility] Comment on above: Performed By: #### C BC ####[facility] Lqowsetsrj2516 [place] [address]Dr. Airam Tripathi MCHC (RBC) [Mass/Vol] 31.1 g/dL Normal 29.9-35.2 [facility] Comment on above: Performed By: #### C BC ####[facility] Doblirgusq[address]776 [place] [address]Dr. Airam Tripathi MCV (RBC) [Entitic vol] 98.2 fL Normal 81.0-99.0 [facility] Comment on above: Performed By: #### C BC ####[facility] [id number] [place] [id number]. Airam Deuce MONO # 0.5 103/ul Normal 0.3-0.8 [facility] Comment on above: Performed By: #### C BC ####[facility] [id number] [place] [id number]. Airam Tripathi Monocytes/100 WBC (Bld) 7.3 % Normal 1.7-12.0 [facility] Comment on above: Performed By: #### C BC ####[facility] Kqadbgjivz[address] [place] [address]Dr. Airam Tripathi NEUT # 4.7 103/ul Normal 1.4-6.5 [facility] Comment on above: Performed By: #### C BC ####[facility] Odbfiycssz50[address] [place] [address]Dr. Selenaneil Tripathi Neutrophils/100 WBC (Bld) 67.4 % Normal 43.0-75.0 [facility] Comment on above: Performed By: #### C BC ####[facility] Ftjyprfpiq[address] [place] [address]Dr. Airam Tripathi Platelet mean volume (Bld) [Entitic vol] 9.5 fL Normal 9.5-13.5 [facility] Comment on above: Performed By: #### C BC ####[facility] Cltyfsszza60[address] [place] [address]Dr. Airam Deuce PLT 273 103/ul Normal 150-450 [facility] Comment on above: Performed By: #### C BC ####[facility] Dxntgnjfvl0441 [place] [address]Dr. Airam Deuce RBC 3.31 106/ul Critically low 4.20-5.40 [facility] Comment on above: Performed By: #### C BC ####[facility] Honmbpidjm2049 [place] [id number]. Airam Deuce WBC 7.0 103/ul Normal 4.0-11.0 [facility] Comment on above: Performed By: #### C BC ####[facility] Krzjmthfwb[address] [place], [place] [address]Dr. Airam Tripathi PROF 14(COMP METB)on 022 Albumin [Mass/Vol] 3.4 g/dL Normal 3.4-5.0 [facility] Comment on above: Performed By: #### C MP ####[facility] Crwzmcmmkm[address] [place], [place] [address]Dr. Airam Tripathi Albumin/Globulin [Mass ratio] 1.1 {ratio} Normal [facility] Comment on above: Performed By: #### C MP ####[facility] Kauopmlefh[address] [place], [place] [address]Dr. Airam Tripathi ALP [Catalytic activity/Vol] 107 U/L Normal 46-116 [facility] Comment on above: Performed By: #### C MP ####[facility] Xiqrasmews252[address] [place], [place] [address]Dr. Airam Tripathi ALT [Catalytic activity/Vol] 22 U/L Normal 14-59 [facility] Comment on above: Performed By: #### C MP ####[facility] Yallhkvorj[address] [place], [place] [address]Dr. Airam Tripathi Anion gap [Moles/Vol] 6.8 mmol/L Normal [facility] Comment on above: Performed By: #### C MP ####[facility] Vnqkwyizds[address] [place], [place] [address]Dr. Airam Tripathi AST [Catalytic activity/Vol] 23 U/L Normal 15-37 [facility] Comment on above: Performed By: #### C MP ####[facility] Umyceggmev74[address] [place], [place] [address]Dr. Airam Tripathi Bilirubin [Mass/Vol] 0.2 mg/dL Normal 0.2-1.0 [facility] Comment on above: Performed By: #### C MP ####[facility] Jsedylsmfz894[address] [place], [place] [address]Dr. Airam Tripathi Calcium [Mass/Vol] 8.4 mg/dL Critically low 8.5-10.1 [facility] Comment on above: Performed By: #### C MP ####[facility] Jdhjylwlvu14[address] [place], [place] [address]Dr. Airam Tripathi Chloride [Moles/Vol] 100 mmol/L Normal 98-107 [facility] Comment on above: Performed By: #### C MP ####[facility] Zxqwjprktu1702 [place] [address]Dr. Selenaneil Deuce CO2 [Moles/Vol] 29.9 mmol/L Normal 21.0-32.0 [facility] Comment on above: Performed By: #### C MP ####[facility] Ckiptkdjnn72[address] [place], [place] [address]Dr. Airam Tripathi Creatinine [Mass/Vol] 1.20 mg/dL Critically high 0.55-1.02 [facility] Comment on above: Performed By: #### C MP ####[facility] Ofpinhacph17[address] [place], [place] [address]Dr. Airam Tripathi EGFR-AF CYPRIOT 56 mL/min/1.73m2 Critically low >=60 [facility] Comment on above: Performed By: #### C MP ####[facility] Pazkwjolng[address] [place], [place] [address]Dr. Airam Tripathi EGFR-NON AF CYPRIOT 46 mL/min/1.73m2 Critically low >=60 [facility] Comment on above: Performed By: #### C MP ####[facility] Ibwenocxwc9738[address] [place], [place] [address]Dr. Airam Tripathi Globulin (S) [Mass/Vol] 3.0 g/dL Normal [facility] Comment on above: Performed By: #### C MP ####[facility] Bsdlznnezm6964[address] [place], [place] [address]Dr. Airam Tripathi Glucose [Mass/Vol] 57 mg/dL Critically low 74-106 [facility] Comment on above: Performed By: #### C MP ####[facility] Ijpxdfxbbd58[address] [place], [place] [address]Dr. Airam Tripathi Potassium [Moles/Vol] 3.7 mmol/L Normal 3.5-5.1 [facility] Comment on above: Performed By: #### C MP ####[facility] Cvmrigyccd[address] [place], [place] [address]Dr. Airam Tripathi Protein [Mass/Vol] 6.4 g/dL Normal 6.4-8.2 [facility] Comment on above: Performed By: #### C MP ####[facility] Yhitfdujjj220[address] [place], [place] [address]Dr. Airam Tripathi Sodium [Moles/Vol] 133 mmol/L Critically low 136-145 [facility] Comment on above: Performed By: #### C MP ####[facility] Gpuorlvbyb12[address] [place], [place] [address]Dr. Airam Deuce Urea nitrogen [Mass/Vol] 39.0 mg/dL Critically high 7.0-18.0 [facility] Comment on above: Performed By: #### C MP ####[facility] Jobvjzumbq360[address] [place], [place] [address]Dr. Airam Deuce Urea nitrogen/Creatinine [Mass ratio] 32.5 mg/mg Normal [facility] Comment on above: Performed By: #### C MP ####[facility] Odyyyfoyle5[address] [place], [place] [address]Dr. Airam Deuce OSMOLALITYon 03-24-2022 Osmolality [Osmolality] 285 mosm/kg Normal 275-295 [facility] Comment on above: Performed By: #### O SMO ####[facility] Kohogjrdzf389[address] [place], [place] [address]Dr. Ariam Deuce CBC AUTO DIFFon 03-22-2022 BASO # 0.0 103/ul Normal 0.0-0.1 [facility] Comment on above: Performed By: #### C BC ####[facility] Gkzbkxhxms[address] [place], [place] [address]Dr. Airam Deuce Basophils/100 WBC (Bld) 0.4 % Normal 0.2-2.0 [facility] Comment on above: Performed By: #### C BC ####[facility] Ejthkubthk[address] [place], [place] [address]Dr. Airam Tripathi EO # 0.2 103/ul Normal 0.0-0.7 [facility] Comment on above: Performed By: #### C BC ####[facility] Qwafpstcmj49[address] [place] [address]Dr. Airam Tripathi Eosinophils/100 WBC (Bld) 2.3 % Normal 0.9-7.0 [facility] Comment on above: Performed By: #### C BC ####[facility] Nieazxktrn64[address] [place], [place] [address]Dr. Airam Tripathi Erythrocyte distribution width (RBC) [Ratio] 13.9 % Normal 11.0-15.0 [facility] Comment on above: Performed By: #### C BC ####[facility] Vqbpovwmha96[address] [place], [place] [address]Dr. Airam Tripathi Hematocrit (Bld) [Volume fraction] 32.6 % Critically low 36.0-48.0 [facility] Comment on above: Performed By: #### C BC ####[facility] Ghwjbwftil15[address] [place], [place] [address]Dr. Airam Tripathi Hemoglobin (Bld) [Mass/Vol] 10.3 g/dL Critically low 12.0-16.0 [facility] Comment on above: Performed By: #### C BC ####[facility] Dgzxmhfxsl73[address] [place], [place] [address]Dr. Airam Tripathi IG # 0.11 10e3/ul Critically high 0.00-0.03 [facility] Comment on above: Performed By: #### C BC ####[facility] Ekdwliltij4438[address] [place], [place] [address]Dr. Airam Tripathi IG % 1.4 % Critically high 0.0-0.5 [facility] Comment on above: Performed By: #### C BC ####[facility] Wjejhdffrz78[address] [place], [place] [address]Dr. Airam Tripathi LYMPH # 1.3 103/ul Normal 1.2-3.8 [facility] Comment on above: Performed By: #### C BC ####[facility] Idbyklmmtn12[address] [place], [place] [address]Dr. Airam Tripathi Lymphocytes/100 WBC (Bld) 15.9 % Critically low 20.5-60.0 [facility] Comment on above: Performed By: #### C BC ####[facility] Zuahotcuci24[address] [place] [id number]. Airam Tripathi MANUAL DIFF REQ NO Normal [facility] Comment on above: Performed By: #### C BC ####[facility] Qyinostfge9739 [place] [id number]. Airam Tripathi MCH (RBC) [Entitic mass] 30.7 pg Normal 26.7-34.0 [facility] Comment on above: Performed By: #### C BC ####[facility] Blmwurpxzp9466 [place] [address]Dr. Airam Tripathi MCHC (RBC) [Mass/Vol] 31.6 g/dL Normal 29.9-35.2 [facility] Comment on above: Performed By: #### C BC ####[facility] Ttxsrgffhb6046 [place] [address]Dr. Airam Deuce MCV (RBC) [Entitic vol] 97.0 fL Normal 81.0-99.0 [facility] Comment on above: Performed By: #### C BC ####[facility] Blhgnwxfug[address] [place], [place] [address]Dr. Airam Deuce MONO # 0.6 103/ul Normal 0.3-0.8 [facility] Comment on above: Performed By: #### C BC ####[facility] Gdmvxgwgpg[address] [place], [place] [address]Dr. Selenaneil Tripathi Monocytes/100 WBC (Bld) 6.9 % Normal 1.7-12.0 [facility] Comment on above: Performed By: #### C BC ####[facility] Eyuuzreqob4[address] [place], [place] [address]Dr. Airam Tripathi NEUT # 5.9 103/ul Normal 1.4-6.5 [facility] Comment on above: Performed By: #### C BC ####[facility] Gkrpntzjvu97[address] [place], [place] [address]Dr. Selenaneil Tripathi Neutrophils/100 WBC (Bld) 73.1 % Normal 43.0-75.0 [facility] Comment on above: Performed By: #### C BC ####[facility] Qsbfpdrqxu4531 [place] [id number]. Selenaneil Deuce Platelet mean volume (Bld) [Entitic vol] 9.5 fL Normal 9.5-13.5 [facility] Comment on above: Performed By: #### C BC ####[facility] Rfmlxloieg6149 [place] [id number]. Airam Tripathi PLT 313 103/ul Normal 150-450 [facility] Comment on above: Performed By: #### C BC ####[facility] Jazkkhkxad5637 [place] [address]Dr. Airam Tripathi RBC 3.36 106/ul Critically low 4.20-5.40 [facility] Comment on above: Performed By: #### C BC ####[facility] Prgeytzbbi2141 [place] [address]Dr. Airam Tripathi WBC 8.1 103/ul Normal 4.0-11.0 [facility] Comment on above: Performed By: #### C BC ####[facility] Ghsvodxpbg3947 [place] [address]Dr. Airam Tripathi PROF 14(COMP METB)on 022 Albumin [Mass/Vol] 3.3 g/dL Critically low 3.4-5.0 [facility] Comment on above: Performed By: #### C MP ####[facility] Egaspdrshx2558 [place] [address]Dr. Airam Tripathi Albumin/Globulin [Mass ratio] 1.0 {ratio} Normal [facility] Comment on above: Performed By: #### C MP ####[facility] Yjojiajfjb3152 [place] [address]Dr. Airam Tripathi ALP [Catalytic activity/Vol] 113 U/L Normal 46-116 [facility] Comment on above: Performed By: #### C MP ####[facility] Etjjoevcwp3891 [place] [address]Dr. Airam Tripathi ALT [Catalytic activity/Vol] 21 U/L Normal 14-59 [facility] Comment on above: Performed By: #### C MP ####[facility] Lyucpvcfow7027 [place] [address]Dr. Airam Tripathi Anion gap [Moles/Vol] 12.2 mmol/L Normal [facility] Comment on above: Performed By: #### C MP ####[facility] Mfibaxsduv29[address] [place], [place] [address]Dr. Airam Tripathi AST [Catalytic activity/Vol] 21 U/L Normal 15-37 [facility] Comment on above: Performed By: #### C MP ####[facility] Iwtnvwiikw8824[address] [place], [place] [address]Dr. Airam Deuce Bilirubin [Mass/Vol] 0.2 mg/dL Normal 0.2-1.0 [facility] Comment on above: Performed By: #### C MP ####[facility] Qncmcfclcv6913[address] [place], [place] [address]Dr. Selenaneil Deuce Calcium [Mass/Vol] 8.4 mg/dL Critically low 8.5-10.1 [facility] Comment on above: Performed By: #### C MP ####[facility] Lnpekankey8739[address] [place], [place] [address]Dr. Airam Tripathi Chloride [Moles/Vol] 103 mmol/L Normal 98-107 [facility] Comment on above: Performed By: #### C MP ####[facility] Oidkhsygcv9270[address] [place], [place] [address]Dr. Airam Deuce CO2 [Moles/Vol] 24.4 mmol/L Normal 21.0-32.0 [facility] Comment on above: Performed By: #### C MP ####[facility] Ejyrggrgym727[address] [place], [place] [address]Dr. Airam Tripathi Creatinine [Mass/Vol] 1.11 mg/dL Critically high 0.55-1.02 [facility] Comment on above: Performed By: #### C MP ####[facility] Slcvxtgwiy4146[address] [place], [place] [address]Dr. Airam Tripathi EGFR-AF CYPRIOT >60 Normal >=60 [facility] Comment on above: Performed By: #### C MP ####[facility] Qnotexzsfy585[address] [place], [place] [address]Dr. Airam Tripathi EGFR-NON AF CYPRIOT 50 mL/min/1.73m2 Critically low >=60 [facility] Comment on above: Performed By: #### C MP ####[facility] Fofiakoswt6113 [place] [address]Dr. Airam Tripathi Globulin (S) [Mass/Vol] 3.2 g/dL Normal [facility] Comment on above: Performed By: #### C MP ####[facility] Pvouaidxky2879 [place] [address]Dr. Airam Tripathi Glucose [Mass/Vol] 84 mg/dL Normal 74-106 [facility] Comment on above: Performed By: #### C MP ####[facility] Rigyoowjkw6844[address] [place], [place] [address]Dr. Airam Tripathi Potassium [Moles/Vol] 4.6 mmol/L Normal 3.5-5.1 [facility] Comment on above: Performed By: #### C MP ####[facility] Ieipjmizua9539[address] [place], [place] [address]Dr. Airam Tripathi Protein [Mass/Vol] 6.5 g/dL Normal 6.4-8.2 [facility] Comment on above: Performed By: #### C MP ####[facility] Wwbrsyzqqu3[address] [place], [place] [address]Dr. Airam Tripathi Sodium [Moles/Vol] 135 mmol/L Critically low 136-145 [facility] Comment on above: Performed By: #### C MP ####[facility] Puguztuaxw9814[address] [place], [place] [address]Dr. Airam Tripathi Urea nitrogen [Mass/Vol] 39.0 mg/dL Critically high 7.0-18.0 [facility] Comment on above: Performed By: #### C MP ####[facility] Egwljodtcg350[address] [place], [place] [address]Dr. Airam Tripathi Urea nitrogen/Creatinine [Mass ratio] 35.1 mg/mg Normal [facility] Comment on above: Performed By: #### C MP ####[facility] Kwyfrnxhja526[address] [place], [place] [address]Dr. Airam Tripathi OSMOLALITYon 03-17-2022 Osmolality [Osmolality] 277 mosm/kg Normal 275-295 [facility] Comment on above: Performed By: #### O SMO ####[facility] Hmmiokmgyr5[address] [place], [place] [address]Dr. Airam Tripathi CBC AUTO DIFFon 03-15-2022 BASO # 0.0 103/ul Normal 0.0-0.1 [facility] Comment on above: Performed By: #### C BC ####[facility] Lrqpuptauu735[address] [place], [place] [address]Dr. Airam Tripathi Basophils/100 WBC (Bld) 0.4 % Normal 0.2-2.0 [facility] Comment on above: Performed By: #### C BC ####[facility] Zfmkpjptqd0[address] [place], [place] [address]Dr. Airam Tripathi EO # 0.1 103/ul Normal 0.0-0.7 [facility] Comment on above: Performed By: #### C BC ####[facility] Klrkerysyd[address] [place], [place] [address]Dr. Airam Tripathi Eosinophils/100 WBC (Bld) 2.4 % Normal 0.9-7.0 [facility] Comment on above: Performed By: #### C BC ####[facility] Zljzibpldv[address] [place], [place] [address]Dr. Airam Tripathi Erythrocyte distribution width (RBC) [Ratio] 13.9 % Normal 11.0-15.0 [facility] Comment on above: Performed By: #### C BC ####[facility] Ikwfiotekq9[address] [place], [place] [address]Dr. Airam Tripathi Hematocrit (Bld) [Volume fraction] 31.2 % Critically low 36.0-48.0 [facility] Comment on above: Performed By: #### C BC ####[facility] Qkkikrmnwr12[address] [place], [place] [address]Dr. Airam Tripathi Hemoglobin (Bld) [Mass/Vol] 9.9 g/dL Critically low 12.0-16.0 [facility] Comment on above: Performed By: #### C BC ####[facility] Bvmhjneewm9377 [place] [id number]. Airam Tripathi IG # 0.03 10e3/ul Normal 0.00-0.03 [facility] Comment on above: Performed By: #### C BC ####[facility] Hlgqzcangt4380 [place] [id number]. Airam Deuce IG % 0.6 % Critically high 0.0-0.5 [facility] Comment on above: Performed By: #### C BC ####[facility] Zxyrlemeop8254 [place] [address]Dr. Airam Deuce LYMPH # 1.5 103/ul Normal 1.2-3.8 [facility] Comment on above: Performed By: #### C BC ####[facility] Qyibqtkpok7497 [place] [address]Dr. Airam Tripathi Lymphocytes/100 WBC (Bld) 29.4 % Normal 20.5-60.0 [facility] Comment on above: Performed By: #### C BC ####[facility] Rvnwwzvnly5068 [place] [address]Dr. Selenaneil Tripathi MANUAL DIFF REQ NO Normal [facility] Comment on above: Performed By: #### C BC ####[facility] Ijqvktluvt3418 [place] [address]Dr. Selenaneil Tripathi MCH (RBC) [Entitic mass] 30.5 pg Normal 26.7-34.0 [facility] Comment on above: Performed By: #### C BC ####[facility] Otrleanybd4092 [place] [address]Dr. Airam Tripathi MCHC (RBC) [Mass/Vol] 31.7 g/dL Normal 29.9-35.2 [facility] Comment on above: Performed By: #### C BC ####[facility] Fyludznyor9506 [place] [address]Dr. Selenaneil Tripathi MCV (RBC) [Entitic vol] 96.0 fL Normal 81.0-99.0 [facility] Comment on above: Performed By: #### C BC ####[facility] Wcixsyzkpd6127 [place] [id number]. Airam Tripathi MONO # 0.4 103/ul Normal 0.3-0.8 [facility] Comment on above: Performed By: #### C BC ####[facility] Zlyttmhqbp5997 [place] [address]Dr. Airam Tripathi Monocytes/100 WBC (Bld) 7.0 % Normal 1.7-12.0 [facility] Comment on above: Performed By: #### C BC ####[facility] Nkzgbqboui3781 [place] [id number]. Airam Tripathi NEUT # 3.0 103/ul Normal 1.4-6.5 [facility] Comment on above: Performed By: #### C BC ####[facility] Hoavhhzvfy5611 [place] [address]Dr. Airam Tripathi Neutrophils/100 WBC (Bld) 60.2 % Normal 43.0-75.0 [facility] Comment on above: Performed By: #### C BC ####[facility] Lhewagkgdr5198 [place] [id number]. Airam Tripathi Platelet mean volume (Bld) [Entitic vol] 9.6 fL Normal 9.5-13.5 [facility] Comment on above: Performed By: #### C BC ####[facility] Tgsrlsysmx0943 [place] [id number]. Airam Tripathi PLT 258 103/ul Normal 150-450 [facility] Comment on above: Performed By: #### C BC ####[facility] Usroszczek3769 [place] [address]Dr. Airam Tripathi RBC 3.25 106/ul Critically low 4.20-5.40 [facility] Comment on above: Performed By: #### C BC ####[facility] Zpdowhmidm8840 [place] [id number]. Airam Tripathi WBC 5.0 103/ul Normal 4.0-11.0 [facility] Comment on above: Performed By: #### C BC ####[facility] Xnmqflwzft[address] [place], [place] [address]Dr. Airam Tripathi PROF 14(COMP METB)on 022 Albumin [Mass/Vol] 3.3 g/dL Critically low 3.4-5.0 [facility] Comment on above: Performed By: #### C MP ####[facility] Fukgvgsvuq5285 [place] [address]Dr. Airam Tripathi Albumin/Globulin [Mass ratio] 1.1 {ratio} Normal [facility] Comment on above: Performed By: #### C MP ####[facility] Tgotwftnqs7271 [place] [address]Dr. Airam Tripathi ALP [Catalytic activity/Vol] 106 U/L Normal 46-116 [facility] Comment on above: Performed By: #### C MP ####[facility] Monjgwiuig9[address] [place], [place] [address]Dr. Airam Tripathi ALT [Catalytic activity/Vol] 22 U/L Normal 14-59 [facility] Comment on above: Performed By: #### C MP ####[facility] Izuaipflfd47[address] [place], [place] [address]Dr. Airam Tripathi Anion gap [Moles/Vol] 11.4 mmol/L Normal [facility] Comment on above: Performed By: #### C MP ####[facility] Abiynkwjho76[address] [place], [place] [address]Dr. Airam Tripathi AST [Catalytic activity/Vol] 22 U/L Normal 15-37 [facility] Comment on above: Performed By: #### C MP ####[facility] Qtrqdrwrks[address] [place], [place] [address]Dr. Airam Tripathi Bilirubin [Mass/Vol] 0.3 mg/dL Normal 0.2-1.0 [facility] Comment on above: Performed By: #### C MP ####[facility] Czgbkinnlx90[address] [place], [place] [address]Dr. Airam Tripathi Calcium [Mass/Vol] 8.1 mg/dL Critically low 8.5-10.1 [facility] Comment on above: Performed By: #### C MP ####[facility] Xvhmwuwcdh[address] [place], [place] [address]Dr. Airam Tripathi Chloride [Moles/Vol] 100 mmol/L Normal 98-107 [facility] Comment on above: Performed By: #### C MP ####[facility] Ctijrmyhfh[address] [place] [address]Dr. Airam Tripathi CO2 [Moles/Vol] 25.6 mmol/L Normal 21.0-32.0 [facility] Comment on above: Performed By: #### C MP ####[facility] Igczkcmgqd7579 [place] [address]Dr. Airam Tripathi Creatinine [Mass/Vol] 1.21 mg/dL Critically high 0.55-1.02 [facility] Comment on above: Performed By: #### C MP ####[facility] Auzfecjvbk9415 [place] [address]Dr. Airam Tripathi EGFR-AF CYPRIOT 55 mL/min/1.73m2 Critically low >=60 [facility] Comment on above: Performed By: #### C MP ####[facility] Cumdgenryw[address] [place], [place] [address]Dr. Airam Tripathi EGFR-NON AF CYPRIOT 45 mL/min/1.73m2 Critically low >=60 [facility] Comment on above: Performed By: #### C MP ####[facility] Frlqvitgzf4900 [place] [address]Dr. Airam Deuce Globulin (S) [Mass/Vol] 3.0 g/dL Normal [facility] Comment on above: Performed By: #### C MP ####[facility] Upswgqmqcn[address] [place], [place] [address]Dr. Airam Deuce Glucose [Mass/Vol] 84 mg/dL Normal 74-106 [facility] Comment on above: Performed By: #### C MP ####[facility] Ciyvhxqfl[address] [place], [place] [address]Dr. Airam Tripathi Potassium [Moles/Vol] 4.0 mmol/L Normal 3.5-5.1 [facility] Comment on above: Performed By: #### C MP ####[facility] Aerwuwdrln[address] [place], [place] [address]Dr. Airam Tripathi Protein [Mass/Vol] 6.3 g/dL Critically low 6.4-8.2 [facility] Comment on above: Performed By: #### C MP ####[facility] Bycixzhhrd408[address] [place], [place] [address]Dr. Airam Tripathi Sodium [Moles/Vol] 133 mmol/L Critically low 136-145 [facility] Comment on above: Performed By: #### C MP ####[facility] Vxerajdfkw29[address] [place], [place] [address]Dr. Airam Tripathi Urea nitrogen [Mass/Vol] 29.0 mg/dL Critically high 7.0-18.0 [facility] Comment on above: Performed By: #### C MP ####[facility] Cfuhemxgxy[address] [place], [place] [address]Dr. Airam Tripathi Urea nitrogen/Creatinine [Mass ratio] 24.0 mg/mg Normal [facility] Comment on above: Performed By: #### C MP ####[facility] Mzfkvjktjy[address] [place], [place] [address]Dr. Aiarm Tripathi OSMOLALITYon 03-12-2022 Osmolality [Osmolality] 285 mosm/kg Normal 275-295 [facility] Comment on above: Performed By: #### O SMO ####[facility] Kflmvrctjs[address] [place], [place] [address]Dr. Airam Tripathi CBC AUTO DIFFon 03-10-2022 BASO # 0.0 103/ul Normal 0.0-0.1 [facility] Comment on above: Performed By: #### C BC ####[facility] Qyexrpcwba40[address] [place], [place] [address]Dr. Airam Deuce Basophils/100 WBC (Bld) 0.3 % Normal 0.2-2.0 [facility] Comment on above: Performed By: #### C BC ####[facility] Fhovvujvza4[address] [place], [place] [address]Dr. Airam Deuce EO # 0.2 103/ul Normal 0.0-0.7 [facility] Comment on above: Performed By: #### C BC ####[facility] P[address]lcwhkou[address] [place] [id number]. Airam Tripathi Eosinophils/100 WBC (Bld) 2.7 % Normal 0.9-7.0 [facility] Comment on above: Performed By: #### C BC ####[facility] Mhlevoavng[address] [place] [address]Dr. Airam Tripathi Erythrocyte distribution width (RBC) [Ratio] 14.4 % Normal 11.0-15.0 [facility] Comment on above: Performed By: #### C BC ####[facility] Hvrfazvgxs[address] [place], [place] [address]Dr. Airam Tripathi Hematocrit (Bld) [Volume fraction] 32.5 % Critically low 36.0-48.0 [facility] Comment on above: Performed By: #### C BC ####[facility] Lgatghtzan56[address] [place], [place] [address]Dr. Airam Tripathi Hemoglobin (Bld) [Mass/Vol] 10.1 g/dL Critically low 12.0-16.0 [facility] Comment on above: Performed By: #### C BC ####[facility] Icmkfnvlcl214[address] [place], [place] [address]Dr. Airam Tripathi IG # 0.03 10e3/ul Normal 0.00-0.03 [facility] Comment on above: Performed By: #### C BC ####[facility] Ybesjehcsn[address] [place], [place] [address]Dr. Airam Tripathi IG % 0.4 % Normal 0.0-0.5 [facility] Comment on above: Performed By: #### C BC ####[facility] Wbqdkbwayv[address] [place], [place] [address]Dr. Airam Tripathi LYMPH # 1.4 103/ul Normal 1.2-3.8 [facility] Comment on above: Performed By: #### C BC ####[facility] Qiocrajkhg7[address] [place], [place] [address]Dr. Airam Tripathi Lymphocytes/100 WBC (Bld) 19.4 % Critically low 20.5-60.0 [facility] Comment on above: Performed By: #### C BC ####[facility] Zbevilexsk5034 [place] [id number]. Airam Tripathi MANUAL DIFF REQ NO Normal [facility] Comment on above: Performed By: #### C BC ####[facility] B[address]gljwjej[address] [place] [id number]. Airam Tripathi MCH (RBC) [Entitic mass] 30.6 pg Normal 26.7-34.0 [facility] Comment on above: Performed By: #### C BC ####[facility] Vwppbaiiaw[address] [place] [address]Dr. Airam Tripathi MCHC (RBC) [Mass/Vol] 31.1 g/dL Normal 29.9-35.2 [facility] Comment on above: Performed By: #### C BC ####[facility] Jwxkvxliat644[address] [place], [place] [address]Dr. Airam Deuce MCV (RBC) [Entitic vol] 98.5 fL Normal 81.0-99.0 [facility] Comment on above: Performed By: #### C BC ####[facility] Pnjpmdabbb9[address] [place], [place] [address]Dr. Airam Deuce MONO # 0.5 103/ul Normal 0.3-0.8 [facility] Comment on above: Performed By: #### C BC ####[facility] Rvygjkshxu8[address] [place], [place] [address]Dr. Selenaneil Tripathi Monocytes/100 WBC (Bld) 6.7 % Normal 1.7-12.0 [facility] Comment on above: Performed By: #### C BC ####[facility] Ojwbpaswka[address] [place], [place] [address]Dr. Airam Tripathi NEUT # 5.2 103/ul Normal 1.4-6.5 [facility] Comment on above: Performed By: #### C BC ####[facility] Ouibfwznpp49[address] [place], [place] [address]Dr. Selenaneil Tripathi Neutrophils/100 WBC (Bld) 70.5 % Normal 43.0-75.0 [facility] Comment on above: Performed By: #### C BC ####[facility] Qsmkghgzbg5425 [place] [id number]. Airam Deuce Platelet mean volume (Bld) [Entitic vol] 9.8 fL Normal 9.5-13.5 [facility] Comment on above: Performed By: #### C BC ####[facility] Klsedvaqgn0103 [place] [id number]. Selenaneil Deuce PLT 277 103/ul Normal 150-450 [facility] Comment on above: Performed By: #### C BC ####[facility] Gmzkwaaxmr2875 [place] [id number]. Airam Tripathi RBC 3.30 106/ul Critically low 4.20-5.40 [facility] Comment on above: Performed By: #### C BC ####[facility] Cjtgwgfkdc54[address] [place] [address]Dr. Airam Tripathi WBC 7.4 103/ul Normal 4.0-11.0 [facility] Comment on above: Performed By: #### C BC ####[facility] Dkyeoakkql1096 [place] [address]Dr. Airam Tripathi PROF 14(COMP METB)on 022 Albumin [Mass/Vol] 3.6 g/dL Normal 3.4-5.0 [facility] Comment on above: Performed By: #### C MP ####[facility] Hwbqhnkvbv3593 [place] [address]Dr. Airam Tripathi Albumin/Globulin [Mass ratio] 1.1 {ratio} Normal [facility] Comment on above: Performed By: #### C MP ####[facility] Tswgoxvizq[address] [place] [id number]. Airam Tripathi ALP [Catalytic activity/Vol] 112 U/L Normal 46-116 [facility] Comment on above: Performed By: #### C MP ####[facility] Rgcqczzkwd6991 [place] [address]Dr. Airam Tripathi ALT [Catalytic activity/Vol] 26 U/L Normal 14-59 [facility] Comment on above: Performed By: #### C MP ####[facility] Pphdfcghzj4536 [place] [address]Dr. Airam Tripathi Anion gap [Moles/Vol] 12.0 mmol/L Normal Th e [facility] Comment on above: Performed By: #### C MP ####[facility] Aqwkomohql029[address] [place] [address]Dr. Airam Tripathi AST [Catalytic activity/Vol] 25 U/L Normal 15-37 [facility] Comment on above: Performed By: #### C MP ####[facility] Yubzrnaiwz[address] [place], [place] [address]Dr. Airam Tripathi Bilirubin [Mass/Vol] 0.4 mg/dL Normal 0.2-1.0 [facility] Comment on above: Performed By: #### C MP ####[facility] Pylhwxdtew99[address] [place], [place] [address]Dr. Airam Tripathi Calcium [Mass/Vol] 8.9 mg/dL Normal 8.5-10.1 [facility] Comment on above: Performed By: #### C MP ####[facility] Gvvbqqplxr30[address] [place], [place] [address]Dr. Airam Deuce Chloride [Moles/Vol] 101 mmol/L Normal 98-107 [facility] Comment on above: Performed By: #### C MP ####[facility] Oessfeksmi[address] [place], [place] [address]Dr. Airam Tripathi CO2 [Moles/Vol] 24.0 mmol/L Normal 21.0-32.0 [facility] Comment on above: Performed By: #### C MP ####[facility] Utcmijxorr6922[address] [place], [place] [address]Dr. Airam Deuce Creatinine [Mass/Vol] 1.51 mg/dL Critically high 0.55-1.02 [facility] Comment on above: Performed By: #### C MP ####[facility] Kqwbtksiwo04[address] [place], [place] [address]Dr. Ariam Deuce EGFR-AF CYPRIOT 43 mL/min/1.73m2 Critically low >=60 [facility] Comment on above: Performed By: #### C MP ####[facility] Ohltxintsp5303 [place] [address]Dr. Airam Tripathi EGFR-NON AF CYPRIOT 35 mL/min/1.73m2 Critically low >=60 [facility] Comment on above: Performed By: #### C MP ####[facility] Nxnweojuds3533 [place] [address]Dr. Airam Tripathi Globulin (S) [Mass/Vol] 3.2 g/dL Normal [facility] Comment on above: Performed By: #### C MP ####[facility] Pcscfobcfg6[address] [place] [address]Dr. Airam Tripathi Glucose [Mass/Vol] 82 mg/dL Normal 74-106 [facility] Comment on above: Performed By: #### C MP ####[facility] Uwiolfpbco8[address] [place], [place] [address]Dr. Airam Tripathi Potassium [Moles/Vol] 4.0 mmol/L Normal 3.5-5.1 [facility] Comment on above: Performed By: #### C MP ####[facility] Uksztwhksa1760[address] [place], [place] [address]Dr. Airam Tripathi Protein [Mass/Vol] 6.8 g/dL Normal 6.4-8.2 [facility] Comment on above: Performed By: #### C MP ####[facility] Gfzicaluwu7524[address] [place], [place] [address]Dr. Airam Tripathi Sodium [Moles/Vol] 133 mmol/L Critically low 136-145 [facility] Comment on above: Performed By: #### C MP ####[facility] Waktzcppla36[address] [place], [place] [address]Dr. Airam Tripathi Urea nitrogen [Mass/Vol] 37.0 mg/dL Critically high 7.0-18.0 [facility] Comment on above: Performed By: #### C MP ####[facility] Oucwvlfkob[address] [place], [place] [address]Dr. Airam Tripathi Urea nitrogen/Creatinine [Mass ratio] 24.5 mg/mg Normal [facility] Comment on above: Performed By: #### C MP ####[facility] Uvqcihhzxz[address] [place], [place] [address]Dr. Airam Tripathi OSMOLALITYon 03-07-2022 Osmolality [Osmolality] 284 mosm/kg Normal 275-295 [facility] Comment on above: Performed By: #### O SMO ####[facility] Huujszzntt88[address] [place] [address]Dr. Airam Tripathi CBC AUTO DIFFon 03-04-2022 BASO # 0.0 103/ul Normal 0.0-0.1 [facility] Comment on above: Performed By: #### C BC ####[facility] Lwnluguxux0[address] [place] [address]Dr. Airam Tripathi Basophils/100 WBC (Bld) 0.3 % Normal 0.2-2.0 [facility] Comment on above: Performed By: #### C BC ####[facility] Gacrribsxr92[address] [place], [place] [address]Dr. Airam Tripathi EO # 0.1 103/ul Normal 0.0-0.7 [facility] Comment on above: Performed By: #### C BC ####[facility] Pucnwucehq75[address] [place], [place] [address]Dr. Airam Tripathi Eosinophils/100 WBC (Bld) 2.0 % Normal 0.9-7.0 [facility] Comment on above: Performed By: #### C BC ####[facility] Fmqdyfqrng9[address] [place], [place] [address]Dr. Airam Tripathi Erythrocyte distribution width (RBC) [Ratio] 14.5 % Normal 11.0-15.0 [facility] Comment on above: Performed By: #### C BC ####[facility] Vwufpcifow6[address] [place], [place] [address]Dr. Airam Tripathi Hematocrit (Bld) [Volume fraction] 35.4 % Critically low 36.0-48.0 [facility] Comment on above: Performed By: #### C BC ####[facility] Rrazzsgwzr20[address] [place], [place] [address]Dr. Airam Tripathi Hemoglobin (Bld) [Mass/Vol] 11.0 g/dL Critically low 12.0-16.0 [facility] Comment on above: Performed By: #### C BC ####[facility] Qcuyaiaasa0317 [place] [id number]. Airam Tripathi IG # 0.03 10e3/ul Normal 0.00-0.03 [facility] Comment on above: Performed By: #### C BC ####[facility] Ntdgzkqrnc3628 [place] [id number]. Airam Tripathi IG % 0.4 % Normal 0.0-0.5 [facility] Comment on above: Performed By: #### C BC ####[facility] Nzbskadyfv6914 [place] [address]Dr. Airam Tripathi LYMPH # 1.7 103/ul Normal 1.2-3.8 [facility] Comment on above: Performed By: #### C BC ####[facility] Dufqhzwzik[address] [place], [place] [address]Dr. Airam Tripathi Lymphocytes/100 WBC (Bld) 23.8 % Normal 20.5-60.0 [facility] Comment on above: Performed By: #### C BC ####[facility] Lmraakirgc36[address] [place] [address]Dr. Airam Tripathi MANUAL DIFF REQ NO Normal [facility] Comment on above: Performed By: #### C BC ####[facility] Hdffbdqout7[address] [place], [place] [address]Dr. Airam Tripathi MCH (RBC) [Entitic mass] 30.0 pg Normal 26.7-34.0 [facility] Comment on above: Performed By: #### C BC ####[facility] Wjjkmsywxq7[address] [place], [place] [address]Dr. Airam Tripathi MCHC (RBC) [Mass/Vol] 31.1 g/dL Normal 29.9-35.2 [facility] Comment on above: Performed By: #### C BC ####[facility] Lgpmndhgcq[address] [place] [address]Dr. Airam Tripathi MCV (RBC) [Entitic vol] 96.5 fL Normal 81.0-99.0 [facility] Comment on above: Performed By: #### C BC ####[facility] Cytlcslnjx7249 [place] [id number]. Airam Tripathi MONO # 0.5 103/ul Normal 0.3-0.8 [facility] Comment on above: Performed By: #### C BC ####[facility] Gnwgzzvuyl6033 [place] [id number]. Airam Tripathi Monocytes/100 WBC (Bld) 6.6 % Normal 1.7-12.0 [facility] Comment on above: Performed By: #### C BC ####[facility] Jlinoadobu2964 [place] [id number]. Airam Tripathi NEUT # 4.7 103/ul Normal 1.4-6.5 [facility] Comment on above: Performed By: #### C BC ####[facility] Koreecflpd1044 [place] [address]Dr. Airam Tripathi Neutrophils/100 WBC (Bld) 66.9 % Normal 43.0-75.0 [facility] Comment on above: Performed By: #### C BC ####[facility] Lkwbfhomyc2207 [place] [id number]. Airam Tripathi Platelet mean volume (Bld) [Entitic vol] 10.2 fL Normal 9.5-13.5 [facility] Comment on above: Performed By: #### C BC ####[facility] Gcvduddnob0176 [place] [address]Dr. Airam Tripathi PLT 270 103/ul Normal 150-450 [facility] Comment on above: Performed By: #### C BC ####[facility] Roqxkvxhvq7034 [place] [address]Dr. Airam Tripathi RBC 3.67 106/ul Critically low 4.20-5.40 [facility] Comment on above: Performed By: #### C BC ####[facility] Zqdddwjany834[address] [place], [place] [address]Dr. Airam Tripathi WBC 7.0 103/ul Normal 4.0-11.0 [facility] Comment on above: Performed By: #### C BC ####[facility] Brrfyxetko9420[address] [place], [place] [address]Dr. Airam Tripathi PROF 14(COMP METB)on 022 Albumin [Mass/Vol] 3.3 g/dL Critically low 3.4-5.0 [facility] Comment on above: Performed By: #### C MP ####[facility] Vnpstljkbi4[address] [place], [place] [address]Dr. Airam Tripathi Albumin/Globulin [Mass ratio] 1.0 {ratio} Normal [facility] Comment on above: Performed By: #### C MP ####[facility] Nvcadrpipx[address] [place], [place] [address]Dr. Airam Tripathi ALP [Catalytic activity/Vol] 107 U/L Normal 46-116 [facility] Comment on above: Performed By: #### C MP ####[facility] Mzneupadyg110[address] [place], [place] [address]Dr. Airam Tripathi ALT [Catalytic activity/Vol] 23 U/L Normal 14-59 [facility] Comment on above: Performed By: #### C MP ####[facility] Wifmutoiaz78[address] [place], [place] [address]Dr. Airam Tripathi Anion gap [Moles/Vol] 13.0 mmol/L Normal [facility] Comment on above: Performed By: #### C MP ####[facility] Crtzyzrthq898[address] [place], [place] [address]Dr. Airam Tripathi AST [Catalytic activity/Vol] 30 U/L Normal 15-37 [facility] Comment on above: Performed By: #### C MP ####[facility] Twiiuydyfh48[address] [place], [place] [address]Dr. Airam Tripathi Bilirubin [Mass/Vol] 0.2 mg/dL Normal 0.2-1.0 [facility] Comment on above: Performed By: #### C MP ####[facility] Ugcaafgmnr704[address] [place], [place] [address]Dr. Airam Tripathi Calcium [Mass/Vol] 8.8 mg/dL Normal 8.5-10.1 [facility] Comment on above: Performed By: #### C MP ####[facility] Wpjaxoqjke2096 [place] [id number]. Airam Tripathi Chloride [Moles/Vol] 103 mmol/L Normal 98-107 [facility] Comment on above: Performed By: #### C MP ####[facility] Mnwjgkzevk6052 [place] [address]Dr. Airam Tripathi CO2 [Moles/Vol] 24.9 mmol/L Normal 21.0-32.0 [facility] Comment on above: Performed By: #### C MP ####[facility] Ebnxvbmnvn3886 [place] [address]Dr. Airam Tripathi Creatinine [Mass/Vol] 1.06 mg/dL Critically high 0.55-1.02 [facility] Comment on above: Performed By: #### C MP ####[facility] Pqwkmseryg6266 [place] [address]Dr. Airam Deuce EGFR-AF CYPRIOT >60 Normal >=60 [facility] Comment on above: Performed By: #### C MP ####[facility] Zueawoumln5690 [place] [address]Dr. Airam Deuce EGFR-NON AF CYPRIOT 53 mL/min/1.73m2 Critically low >=60 [facility] Comment on above: Performed By: #### C MP ####[facility] Fozvgketjq4844 [place] [address]Dr. Airam Deuce Globulin (S) [Mass/Vol] 3.2 g/dL Normal [facility] Comment on above: Performed By: #### C MP ####[facility] Swbllgevci0662 [place] [address]Dr. Airam Deuce Glucose [Mass/Vol] 91 mg/dL Normal 74-106 [facility] Comment on above: Performed By: #### C MP ####[facility] Dzjbqodxso[address] [place], [place] [address]Dr. Airam Deuce Potassium [Moles/Vol] 3.9 mmol/L Normal 3.5-5.1 [facility] Comment on above: Performed By: #### C MP ####[facility] Tflosgdlow[address] [place], [place] [address]Dr. Airam Tripathi Protein [Mass/Vol] 6.5 g/dL Normal 6.4-8.2 [facility] Comment on above: Performed By: #### C MP ####[facility] Dthalwyiae6260 [place] [address]Dr. Airam Tripathi Sodium [Moles/Vol] 137 mmol/L Normal 136-145 [facility] Comment on above: Performed By: #### C MP ####[facility] Ectbvrdzbv3992 [place] [address]Dr. Airam Tripathi Urea nitrogen [Mass/Vol] 27.0 mg/dL Critically high 7.0-18.0 [facility] Comment on above: Performed By: #### C MP ####[facility] Tfwcutjdbf806[address] [place], [place] [address]Dr. Airam Tripathi Urea nitrogen/Creatinine [Mass ratio] 25.5 mg/mg Normal [facility] Comment on above: Performed By: #### C MP ####[facility] Nbatvmuitz[address] [place], [place] [address]Dr. Airam Tripathi OSMOLALITYon 03-03-2022 Osmolality [Osmolality] 383 mosm/kg Invalid Interpretation Code [id number] [facility] Comment on above: Result Comment: Ve rified by repeat analysis Performed By: #### O SMO ####[facility] Ohivyktdwx[address] [place], [place] [address]Dr. Airam Tripathi CBC AUTO DIFFon 02-22-2022 BASO # 0.0 103/ul Normal 0.0-0.1 [facility] Comment on above: Performed By: #### C BC ####[facility] Dyhtgousbl[address]99[address] [place], [place] [address]Dr. Airam Tripathi Basophils/100 WBC (Bld) 0.4 % Normal 0.2-2.0 [facility] Comment on above: Performed By: #### C BC ####[facility] Ijiodbngun7879 [place] [address]Dr. Airam Deuce EO # 0.2 103/ul Normal 0.0-0.7 [facility] Comment on above: Performed By: #### C BC ####[facility] Euohumswvy8609 [place] [id number]. Airam Tripathi Eosinophils/100 WBC (Bld) 3.9 % Normal 0.9-7.0 [facility] Comment on above: Performed By: #### C BC ####[facility] Bmzsafioxo3799 [place] [address]Dr. Airam Tripathi Erythrocyte distribution width (RBC) [Ratio] 13.9 % Normal 11.0-15.0 [facility] Comment on above: Performed By: #### C BC ####[facility] Qtsqohvaku7[address] [place], [place] [address]Dr. Airam Tripathi Hematocrit (Bld) [Volume fraction] 32.7 % Critically low 36.0-48.0 [facility] Comment on above: Performed By: #### C BC ####[facility] Tqzzwlafdw[address] [place], [place] [address]Dr. Airam Tripathi Hemoglobin (Bld) [Mass/Vol] 10.7 g/dL Critically low 12.0-16.0 [facility] Comment on above: Performed By: #### C BC ####[facility] Quwgxehkou5[address] [place], [place] [address]Dr. Airam Tripathi IG # 0.02 10e3/ul Normal 0.00-0.03 [facility] Comment on above: Performed By: #### C BC ####[facility] Lpjhxdbfdk[address] [place], [place] [address]Dr. Airam Tripathi IG % 0.4 % Normal 0.0-0.5 [facility] Comment on above: Performed By: #### C BC ####[facility] Pyrfhkwopy[address] [place], [place] [address]Dr. Airam Tripathi LYMPH # 1.2 103/ul Normal 1.2-3.8 [facility] Comment on above: Performed By: #### C BC ####[facility] Hbjvdmrpig[address] [place], [place] [address]Dr. Airam Tripathi Lymphocytes/100 WBC (Bld) 25.0 % Normal 20.5-60.0 [facility] Comment on above: Performed By: #### C BC ####[facility] Otoxtnihsh[address] [place] [address]Dr. Airam Tripathi MANUAL DIFF REQ NO Normal [facility] Comment on above: Performed By: #### C BC ####[facility] [address]wqodtu[address] [place] [id number]. Airam Tripathi MCH (RBC) [Entitic mass] 30.7 pg Normal 26.7-34.0 [facility] Comment on above: Performed By: #### C BC ####[facility] [address]tmaexyyqz[address] [place], [place] [address]Dr. Airam Tripathi MCHC (RBC) [Mass/Vol] 32.7 g/dL Normal 29.9-35.2 [facility] Comment on above: Performed By: #### C BC ####[facility] Winxlokhtm65[address] [place], [place] [address]Dr. Airam Tripathi MCV (RBC) [Entitic vol] 93.7 fL Normal 81.0-99.0 [facility] Comment on above: Performed By: #### C BC ####[facility] Sltdpwiunp[address] [place], [place] [address]Dr. Airam Tripathi MONO # 0.4 103/ul Normal 0.3-0.8 [facility] Comment on above: Performed By: #### C BC ####[facility] Htlilgjwkm[address] [place], [place] [address]Dr. Airam Deuce Monocytes/100 WBC (Bld) 7.5 % Normal 1.7-12.0 [facility] Comment on above: Performed By: #### C BC ####[facility] Gndpxxiocv[address] [place], [place] [address]Dr. Airam Tripathi NEUT # 3.1 103/ul Normal 1.4-6.5 [facility] Comment on above: Performed By: #### C BC ####[facility] Ioyxgomyqx94[address] [place], [place] [address]Dr. Airam Tripathi Neutrophils/100 WBC (Bld) 62.8 % Normal 43.0-75.0 [facility] Comment on above: Performed By: #### C BC ####[facility] Heyvyxlxrj1891 [place] [id number]. Selenaneil Deuce Platelet mean volume (Bld) [Entitic vol] 9.5 fL Normal 9.5-13.5 [facility] Comment on above: Performed By: #### C BC ####[facility] Frjgsbfpin8[address] [place] [address]Dr. Airam Tripathi PLT 250 103/ul Normal 150-450 [facility] Comment on above: Performed By: #### C BC ####[facility] Drsoleooey1336 [place] [address]Dr. Airam Tripathi RBC 3.49 106/ul Critically low 4.20-5.40 [facility] Comment on above: Performed By: #### C BC ####[facility] Trnxaofgpp8545 [place] [address]Dr. Aiarm Tripathi WBC 4.9 103/ul Normal 4.0-11.0 [facility] Comment on above: Performed By: #### C BC ####[facility] Wcpprncwst[address] [place], [place] [address]Dr. Airam Tripathi PROF 14(COMP METB)on 022 Albumin [Mass/Vol] 3.3 g/dL Critically low 3.4-5.0 [facility] Comment on above: Performed By: #### C MP ####[facility] Hcsvnqczzj5651 [place] [address]Dr. Airam Tripathi Albumin/Globulin [Mass ratio] 1.0 {ratio} Normal [facility] Comment on above: Performed By: #### C MP ####[facility] Xjoxnxgrow6800 [place] [address]Dr. Airam Tripathi ALP [Catalytic activity/Vol] 127 U/L Critically high 46-116 [facility] Comment on above: Performed By: #### C MP ####[facility] Gdgdwowind9061 [place] [address]Dr. Airam Tripathi ALT [Catalytic activity/Vol] 22 U/L Normal 14-59 [facility] Comment on above: Performed By: #### C MP ####[facility] Jojleupguu9596 [place] [id number]. Airam Tripathi Anion gap [Moles/Vol] 11.9 mmol/L Normal Th e [facility] Comment on above: Performed By: #### C MP ####[facility] Nzdikgjiql3140 [place] [id number]. Airam Tripathi AST [Catalytic activity/Vol] 21 U/L Normal 15-37 [facility] Comment on above: Performed By: #### C MP ####[facility] Itrabkwefk1994 [place] [id number]. Airam Tripathi Bilirubin [Mass/Vol] 0.3 mg/dL Normal 0.2-1.0 [facility] Comment on above: Performed By: #### C MP ####[facility] Elxgajpowh[address] [place], [place] [address]Dr. Airam Tripathi Calcium [Mass/Vol] 8.6 mg/dL Normal 8.5-10.1 [facility] Comment on above: Performed By: #### C MP ####[facility] Cfwuoubnrk8028 [place] [id number]. Airam Tripathi Chloride [Moles/Vol] 105 mmol/L Normal 98-107 [facility] Comment on above: Performed By: #### C MP ####[facility] Fcuqatwqwf5493 [place] [id number]. Airam Tripathi CO2 [Moles/Vol] 23.6 mmol/L Normal 21.0-32.0 [facility] Comment on above: Performed By: #### C MP ####[facility] Lzntrudgfg7137 [place] [id number]. Airam Tripathi Creatinine [Mass/Vol] 1.29 mg/dL Critically high 0.55-1.02 [facility] Comment on above: Performed By: #### C MP ####[facility] Zdahqacanv5656 [place] [id number]. Airam Tripathi EGFR-AF CYPRIOT 51 mL/min/1.73m2 Critically low >=60 [facility] Comment on above: Performed By: #### C MP ####[facility] Flrhavaeex4493 [place] [id number]. Airam Tripathi EGFR-NON AF CYPRIOT 42 mL/min/1.73m2 Critically low >=60 [facility] Comment on above: Performed By: #### C MP ####[facility] Owqdedpzgq0487 [place] [id number]. Airam Tripathi Globulin (S) [Mass/Vol] 3.2 g/dL Normal [facility] Comment on above: Performed By: #### C MP ####[facility] Dzrptaybmw3024 [place] [id number]. Airam Tripathi Glucose [Mass/Vol] 94 mg/dL Normal 74-106 [facility] Comment on above: Performed By: #### C MP ####[facility] Igobaptiwb5485 [place] [id number]. Airam Tripathi Potassium [Moles/Vol] 3.5 mmol/L Normal 3.5-5.1 [facility] Comment on above: Performed By: #### C MP ####[facility] Edcxxpzsee3585 [place] [id number]. Airam Tripathi Protein [Mass/Vol] 6.5 g/dL Normal 6.4-8.2 [facility] Comment on above: Performed By: #### C MP ####[facility] Tjgwfrqdvd0549 [place] [phone]. Airam Tripathi Sodium [Moles/Vol] 137 mmol/L Normal 136-145 [facility] Comment on above: Performed By: #### C MP ####[facility] Xqsnqrwxiv6444 [place] [id number]. Airam Tripathi Urea nitrogen [Mass/Vol] 37.0 mg/dL Critically high 7.0-18.0 [facility] Comment on above: Performed By: #### C MP ####[facility] Srpbufyvzk3895 [place] [id number]. Airam Tripathi Urea nitrogen/Creatinine [Mass ratio] 28.7 mg/mg Normal [facility] Comment on above: Performed By: #### C MP ####[facility] Slcvvmycia4211 [place] [address]Dr. Airam Tripathi OSMOLALITYon 02-20-2022 Osmolality [Osmolality] 283 mosm/kg Normal 275-295 [facility] Comment on above: Performed By: #### O SMO ####[facility] Yqnqyyaere[address] [place], [place] [address]Dr. Airam Tripathi CBC AUTO DIFFon 02-17-2022 BASO # 0.0 103/ul Normal 0.0-0.1 [facility] Comment on above: Performed By: #### C BC ####[facility] Lfbbgmrksb5[address] [place], [place] [address]Dr. Airam Tripathi Basophils/100 WBC (Bld) 0.3 % Normal 0.2-2.0 [facility] Comment on above: Performed By: #### C BC ####[facility] Knwwpeavza[address] [place], [place] [address]Dr. Airam Tripathi EO # 0.1 103/ul Normal 0.0-0.7 [facility] Comment on above: Performed By: #### C BC ####[facility] Lmaqulzzpn[address] [place], [place] [address]Dr. Airam Tripathi Eosinophils/100 WBC (Bld) 1.6 % Normal 0.9-7.0 [facility] Comment on above: Performed By: #### C BC ####[facility] Zjhnajsqcz[address] [place], [place] [address]Dr. Airam Tripathi Erythrocyte distribution width (RBC) [Ratio] 13.4 % Normal 11.0-15.0 [facility] Comment on above: Performed By: #### C BC ####[facility] Zcspgyqkdh22[address] [place], [place] [address]Dr. Airam Tripathi Hematocrit (Bld) [Volume fraction] 31.4 % Critically low 36.0-48.0 [facility] Comment on above: Performed By: #### C BC ####[facility] Jrjkiffcmx6412[address] [place], [place] [address]Dr. Airam Tripathi Hemoglobin (Bld) [Mass/Vol] 10.0 g/dL Critically low 12.0-16.0 [facility] Comment on above: Performed By: #### C BC ####[facility] Tuzcutkhvd3426 [place] [id number]. Airam Tripathi IG # 0.03 10e3/ul Normal 0.00-0.03 [facility] Comment on above: Performed By: #### C BC ####[facility] Aclrxekimd3347 [place] [id number]. Selenaneil Tripathi IG % 0.4 % Normal 0.0-0.5 [facility] Comment on above: Performed By: #### C BC ####[facility] Jjqysdvcrp4356 [place] [address]Dr. Airam Tripathi LYMPH # 1.6 103/ul Normal 1.2-3.8 [facility] Comment on above: Performed By: #### C BC ####[facility] Evjisfyzpe3722 [place] [address]DrKianna Tripathi Lymphocytes/100 WBC (Bld) 24.5 % Normal 20.5-60.0 [facility] Comment on above: Performed By: #### C BC ####[facility] Nyfkboqvqx7924 [place] [address]DrKianna Selenaneil Tripathi MANUAL DIFF REQ NO Normal [facility] Comment on above: Performed By: #### C BC ####[facility] Pspxzpvpvu1061 [place] [phone]. Selenaneil Tripathi MCH (RBC) [Entitic mass] 30.2 pg Normal 26.7-34.0 [facility] Comment on above: Performed By: #### C BC ####[facility] Mrcbwhicqg[address] [place], [place] [address]Dr. Airam Deuce MCHC (RBC) [Mass/Vol] 31.8 g/dL Normal 29.9-35.2 [facility] Comment on above: Performed By: #### C BC ####[facility] Xrcypdercd4156 [place] [phone]. Selenaneil Tripathi MCV (RBC) [Entitic vol] 94.9 fL Normal 81.0-99.0 [facility] Comment on above: Performed By: #### C BC ####[facility] Czvqptlvdx7685 [place] [phone]. Airam Tripathi MONO # 0.4 103/ul Normal 0.3-0.8 [facility] Comment on above: Performed By: #### C BC ####[facility] Vaxswnendh7955 [place] [address]Dr. Airam Tripathi Monocytes/100 WBC (Bld) 5.8 % Normal 1.7-12.0 [facility] Comment on above: Performed By: #### C BC ####[facility] Uopqrozycg8371 [place] [phone]. Airam Tripathi NEUT # 4.5 103/ul Normal 1.4-6.5 [facility] Comment on above: Performed By: #### C BC ####[facility] Rsymvxxaca0504 [place] [address]Dr. Airam Tripathi Neutrophils/100 WBC (Bld) 67.4 % Normal 43.0-75.0 [facility] Comment on above: Performed By: #### C BC ####[facility] Lwkjaytaos6022 [place] [phone]. Airam Tripathi Platelet mean volume (Bld) [Entitic vol] 9.6 fL Normal 9.5-13.5 [facility] Comment on above: Performed By: #### C BC ####[facility] Jsxjdziuyv1674 [place] [phone]. Airam Tripathi PLT 251 103/ul Normal 150-450 [facility] Comment on above: Performed By: #### C BC ####[facility] Hogoawphhg6846 [place] [address]Dr. Airam Tripathi RBC 3.31 106/ul Critically low 4.20-5.40 [facility] Comment on above: Performed By: #### C BC ####[facility] Dilwuyqawg9008 [place] [id number]. Airam Tripathi WBC 6.7 103/ul Normal 4.0-11.0 [facility] Comment on above: Performed By: #### C BC ####[facility] Xknmecmzuy2308 [place] [address]Dr. Airam Tripathi PROF 14(COMP METB)on 022 Albumin [Mass/Vol] 3.5 g/dL Normal 3.4-5.0 [facility] Comment on above: Performed By: #### C MP ####[facility] Eailkndevk[address] [place], [place] [address]Dr. Airam Tripathi Albumin/Globulin [Mass ratio] 1.2 {ratio} Normal [facility] Comment on above: Performed By: #### C MP ####[facility] Zqpeedmqhw67[address] [place], [place] [address]Dr. Airam Tripathi ALP [Catalytic activity/Vol] 130 U/L Critically high 46-116 [facility] Comment on above: Performed By: #### C MP ####[facility] Asvughrfmo005[address] [place], [place] [address]Dr. Airam Tripathi ALT [Catalytic activity/Vol] 18 U/L Normal 14-59 [facility] Comment on above: Performed By: #### C MP ####[facility] Rczvowtrsh9[address] [place], [place] [address]Dr. Airam Tripathi Anion gap [Moles/Vol] 14.0 mmol/L Normal [facility] Comment on above: Performed By: #### C MP ####[facility] Gmpvndkhcr[address] [place], [place] [address]Dr. Airam Tripathi AST [Catalytic activity/Vol] 20 U/L Normal 15-37 [facility] Comment on above: Performed By: #### C MP ####[facility] Hijfexmfii9[address] [place], [place] [address]Dr. Airam Tripathi Bilirubin [Mass/Vol] 0.3 mg/dL Normal 0.2-1.0 [facility] Comment on above: Performed By: #### C MP ####[facility] Dspcubfloc409[address] [place], [place] [address]Dr. Airam Tripathi Calcium [Mass/Vol] 8.5 mg/dL Normal 8.5-10.1 [facility] Comment on above: Performed By: #### C MP ####[facility] Vggcetgarf6541 [place] [phone]. Airam Tripathi Chloride [Moles/Vol] 100 mmol/L Normal 98-107 [facility] Comment on above: Performed By: #### C MP ####[facility] Nyogpcvydi2416 [place] [phone]. Airam Tripathi CO2 [Moles/Vol] 22.7 mmol/L Normal 21.0-32.0 [facility] Comment on above: Performed By: #### C MP ####[facility] Ruaqhgfvog8905 [place] [phone]. Airam Tripathi Creatinine [Mass/Vol] 1.28 mg/dL Critically high 0.55-1.02 [facility] Comment on above: Performed By: #### C MP ####[facility] Mhszfujlmq2997 [place] [address]Dr. Airam Tripathi EGFR-AF CYPRIOT 52 mL/min/1.73m2 Critically low >=60 [facility] Comment on above: Performed By: #### C MP ####[facility] Jjoixiyiou8525 [place] [phone]. Airam Tripathi EGFR-NON AF CYPRIOT 43 mL/min/1.73m2 Critically low >=60 [facility] Comment on above: Performed By: #### C MP ####[facility] Vvdreeyzgy2596 [place] [address]Dr. Airam Tripathi Globulin (S) [Mass/Vol] 2.9 g/dL Normal [facility] Comment on above: Performed By: #### C MP ####[facility] Taxrjxdqrq5595 [place] [phone]. Airam Tripathi Glucose [Mass/Vol] 93 mg/dL Normal 74-106 [facility] Comment on above: Performed By: #### C MP ####[facility] Gnigbkhrpi9013 [place] [address]Dr. Airam Tripathi Potassium [Moles/Vol] 3.7 mmol/L Normal 3.5-5.1 [facility] Comment on above: Performed By: #### C MP ####[facility] Fjkbtykhto4045 [place] [phone]. Airam Tripathi Protein [Mass/Vol] 6.4 g/dL Normal 6.4-8.2 [facility] Comment on above: Performed By: #### C MP ####[facility] Kyqnxtutjd0368 [place] [address]Dr. Airam Tripathi Sodium [Moles/Vol] 133 mmol/L Critically low 136-145 [facility] Comment on above: Performed By: #### C MP ####[facility] Ouzcdqbbba6[address] [place], [place] [address]Dr. Airam Tripathi Urea nitrogen [Mass/Vol] 44.0 mg/dL Critically high 7.0-18.0 [facility] Comment on above: Performed By: #### C MP ####[facility] Qzvxovbjjd427[address] [place], [place] [address]Dr. Airam Tripathi Urea nitrogen/Creatinine [Mass ratio] 34.4 mg/mg Normal [facility] Comment on above: Performed By: #### C MP ####[facility] Hithjgpfdw76[address] [place], [place] [address]Dr. Airam Tripathi OSMOLALITYon 02-10-2022 Osmolality [Osmolality] 288 mosm/kg Normal 275-295 [facility] Comment on above: Performed By: #### O SMO ####[facility] Jxscigftdn07[address] [place], [place] [address]Dr. Airam Tripathi CBC AUTO DIFFon 02-08-2022 BASO # 0.0 103/ul Normal 0.0-0.1 [facility] Comment on above: Performed By: #### C BC ####[facility] Hzutdqnmpx077[address] [place], [place] [address]Dr. Airam Deuce Basophils/100 WBC (Bld) 0.3 % Normal 0.2-2.0 [facility] Comment on above: Performed By: #### C BC ####[facility] Dfddvwmazl[address] [place], [place] [address]Dr. Airam Deuce EO # 0.2 103/ul Normal 0.0-0.7 [facility] Comment on above: Performed By: #### C BC ####[facility] Slhdddgyee5134 [place] [id number]. Airam Tripathi Eosinophils/100 WBC (Bld) 2.1 % Normal 0.9-7.0 [facility] Comment on above: Performed By: #### C BC ####[facility] Icjsqasuxn2422 [place] [address]Dr. Airam Tripathi Erythrocyte distribution width (RBC) [Ratio] 13.4 % Normal 11.0-15.0 [facility] Comment on above: Performed By: #### C BC ####[facility] Obmpxlemga4[address] [place], [place] [address]Dr. Airam Tripathi Hematocrit (Bld) [Volume fraction] 35.1 % Critically low 36.0-48.0 [facility] Comment on above: Performed By: #### C BC ####[facility] Gldsqkhlkk86[address] [place], [place] [address]Dr. Airam Tripathi Hemoglobin (Bld) [Mass/Vol] 10.9 g/dL Critically low 12.0-16.0 [facility] Comment on above: Performed By: #### C BC ####[facility] Coplgyzsjj608[address] [place], [place] [address]Dr. Airam Tripathi IG # 0.03 10e3/ul Normal 0.00-0.03 [facility] Comment on above: Performed By: #### C BC ####[facility] Alogbgwrvx4[address] [place], [place] [address]Dr. Airam Tripathi IG % 0.3 % Normal 0.0-0.5 [facility] Comment on above: Performed By: #### C BC ####[facility] Bjttppcdpa299[address] [place], [place] [address]Dr. Airam Tripathi LYMPH # 1.3 103/ul Normal 1.2-3.8 [facility] Comment on above: Performed By: #### C BC ####[facility] Rsatmejvvh14[address] [place], [place] [address]Dr. Airam Tripathi Lymphocytes/100 WBC (Bld) 13.1 % Critically low 20.5-60.0 [facility] Comment on above: Performed By: #### C BC ####[facility] Xyoeqtypyx2551 [place] [id number]. Airam Deuce MANUAL DIFF REQ NO Normal [facility] Comment on above: Performed By: #### C BC ####[facility] Mlaujmuaxc6117 [place] [address]Dr. Airam Deuce MCH (RBC) [Entitic mass] 30.4 pg Normal 26.7-34.0 [facility] Comment on above: Performed By: #### C BC ####[facility] Rnveejhqix2858 [place] [address]Dr. Airam Deuce MCHC (RBC) [Mass/Vol] 31.1 g/dL Normal 29.9-35.2 [facility] Comment on above: Performed By: #### C BC ####[facility] Erkkciusbd33[address] [place], [place] [address]Dr. Airam Tripathi MCV (RBC) [Entitic vol] 98.0 fL Normal 81.0-99.0 [facility] Comment on above: Performed By: #### C BC ####[facility] Ouioreokzu84[address] [place], [place] [address]Dr. Airam Tripathi MONO # 0.5 103/ul Normal 0.3-0.8 [facility] Comment on above: Performed By: #### C BC ####[facility] Zdsaetrfzl046[address] [place], [place] [address]Dr. Airam Tripathi Monocytes/100 WBC (Bld) 4.7 % Normal 1.7-12.0 [facility] Comment on above: Performed By: #### C BC ####[facility] Hcocmheghm[address] [place], [place] [address]Dr. Airam Tripathi NEUT # 7.7 103/ul Critically high 1.4-6.5 [facility] Comment on above: Performed By: #### C BC ####[facility] Tzluwyjdni[address] [place], [place] [address]Dr. Airam Tripathi Neutrophils/100 WBC (Bld) 79.5 % Critically high 43.0-75.0 [facility] Comment on above: Performed By: #### C BC ####[facility] Gvbsblbxcl5478 [place] [address]Dr. Airam Tripathi Platelet mean volume (Bld) [Entitic vol] 9.6 fL Normal 9.5-13.5 [facility] Comment on above: Performed By: #### C BC ####[facility] Vnebwuxocw3376 [place] [address]Dr. Airam Tripathi PLT 268 103/ul Normal 150-450 [facility] Comment on above: Performed By: #### C BC ####[facility] Egrlqryxwn2920 [place] [address]Dr. Airam Tripathi RBC 3.58 106/ul Critically low 4.20-5.40 [facility] Comment on above: Performed By: #### C BC ####[facility] Egriwufdri87[address] [place], [place] [address]Dr. Airam Tripathi WBC 9.7 103/ul Normal 4.0-11.0 [facility] Comment on above: Performed By: #### C BC ####[facility] Ftrhqchmvz4[address] [place], [place] [address]Dr. Airam Tripathi PROF 14(COMP METB)on 022 Albumin [Mass/Vol] 3.6 g/dL Normal 3.4-5.0 [facility] Comment on above: Performed By: #### C MP ####[facility] Icqojxdevl42[address] [place], [place] [address]Dr. Airam Tripathi Albumin/Globulin [Mass ratio] 1.1 {ratio} Normal [facility] Comment on above: Performed By: #### C MP ####[facility] Lzhfnslsqa0660 [place] [address]Dr. Airam Tripathi ALP [Catalytic activity/Vol] 131 U/L Critically high 46-116 [facility] Comment on above: Performed By: #### C MP ####[facility] Cootbzttwb3707 [place] [address]Dr. Airam Tripathi ALT [Catalytic activity/Vol] 22 U/L Normal 14-59 [facility] Comment on above: Performed By: #### C MP ####[facility] Jqslmrfibk5913 [place] [id number]. Airam Tripathi Anion gap [Moles/Vol] 13.3 mmol/L Normal [facility] Comment on above: Performed By: #### C MP ####[facility] Rrhgurstgi0373 [place] [address]Dr. Airam Tripathi AST [Catalytic activity/Vol] 23 U/L Normal 15-37 [facility] Comment on above: Performed By: #### C MP ####[facility] Rwdcotlncc2529 [place] [id number]. Airam Tripathi Bilirubin [Mass/Vol] 0.3 mg/dL Normal 0.2-1.0 [facility] Comment on above: Performed By: #### C MP ####[facility] Huveodmixm7[address] [place], [place] [address]Dr. Airam Tripathi Calcium [Mass/Vol] 8.7 mg/dL Normal 8.5-10.1 [facility] Comment on above: Performed By: #### C MP ####[facility] Rpgqzosoxm[address] [place], [place] [address]Dr. Airam Tripathi Chloride [Moles/Vol] 104 mmol/L Normal 98-107 [facility] Comment on above: Performed By: #### C MP ####[facility] Cesrchagxk[address] [place], [place] [address]Dr. Airam Tripathi CO2 [Moles/Vol] 22.0 mmol/L Normal 21.0-32.0 [facility] Comment on above: Performed By: #### C MP ####[facility] Jumnfltqsv9196 [place] [address]Dr. Airam Tripathi Creatinine [Mass/Vol] 1.20 mg/dL Critically high 0.55-1.02 [facility] [facility] Comment on above: Performed By: #### C MP ####[facility] Fxccvvysaz[address] [place] [address]Dr. Airam Tripathi EGFR-AF CYPRIOT 56 mL/min/1.73m2 Critically low >=60 [facility] Comment on above: Performed By: #### C MP ####[facility] Mydllyjkdh0156 [place] [id number]. Airam Tripathi EGFR-NON AF CYPRIOT 46 mL/min/1.73m2 Critically low >=60 [facility] Comment on above: Performed By: #### C MP ####[facility] Vhrnokjgsc3309 [place] [id number]. Airam Tripathi Globulin (S) [Mass/Vol] 3.2 g/dL Normal [facility] Comment on above: Performed By: #### C MP ####[facility] Bedwvhsduw7095 [place] [id number]. Airam Tripathi Glucose [Mass/Vol] 98 mg/dL Normal 74-106 [facility] Comment on above: Performed By: #### C MP ####[facility] Fygbovnsuf1838 [place] [id number]. Airam Tripathi Potassium [Moles/Vol] 4.3 mmol/L Normal 3.5-5.1 [facility] Comment on above: Performed By: #### C MP ####[facility] Fylrxwoxug8587 [place] [id number]. Airam Tripathi Protein [Mass/Vol] 6.8 g/dL Normal 6.4-8.2 [facility] Comment on above: Performed By: #### C MP ####[facility] Gpcfmkanpp3878 [place] [id number]. Airam Tripathi Sodium [Moles/Vol] 135 mmol/L Critically low 136-145 [facility] Comment on above: Performed By: #### C MP ####[facility] Elanmswqxg0824 [place] [id number]. Airam Tripathi Urea nitrogen [Mass/Vol] 33.0 mg/dL Critically high 7.0-18.0 [facility] Comment on above: Performed By: #### C MP ####[facility] Brudjaehdg2252 [place] [id number]. Airam Tripathi Urea nitrogen/Creatinine [Mass ratio] 27.5 mg/mg Normal [facility] Comment on above: Performed By: #### C MP ####[facility] Ulxhdnklxq[address] [place] [address]Dr. Airam Tripathi OSMOLALITYon 02-07-2022 Osmolality [Osmolality] 299 mosm/kg Critically high 275-295 [facility] Comment on above: Performed By: #### O SMO ####[facility] Yktlwxskjx[address] [place], [place] [address]Dr. Airam Tripathi CBC AUTO DIFFon 02-03-2022 BASO # 0.0 103/ul Normal 0.0-0.1 [facility] Comment on above: Performed By: #### C BC ####[facility] Uiaogjzqns4138 [place] [address]Dr. Airam Tripathi Basophils/100 WBC (Bld) 0.4 % Normal 0.2-2.0 [facility] Comment on above: Performed By: #### C BC ####[facility] Ekevwdgzfu64[address] [place], [place] [address]Dr. Selenaneil Deuce EO # 0.3 103/ul Normal 0.0-0.7 [facility] Comment on above: Performed By: #### C BC ####[facility] Zgacwfvjft[address] [place], [place] [address]Dr. Airam Tripathi Eosinophils/100 WBC (Bld) 3.6 % Normal 0.9-7.0 [facility] Comment on above: Performed By: #### C BC ####[facility] Znkqrwtakm[address] [place], [place] [address]Dr. Airam Tripathi Erythrocyte distribution width (RBC) [Ratio] 13.2 % Normal 11.0-15.0 [facility] Comment on above: Performed By: #### C BC ####[facility] Teruynamge67[address] [place], [place] [address]Dr. Airam Tripathi Hematocrit (Bld) [Volume fraction] 32.0 % Critically low 36.0-48.0 [facility] Comment on above: Performed By: #### C BC ####[facility] Rogcwmsdyw2[address] [place], [place] [address]Dr. Airam Tripathi Hemoglobin (Bld) [Mass/Vol] 9.8 g/dL Critically low 12.0-16.0 [facility] Comment on above: Performed By: #### C BC ####[facility] Uvfucfbbld2582 [place] [address]Dr. Airam Tripathi IG # 0.03 10e3/ul Normal 0.00-0.03 [facility] Comment on above: Performed By: #### C BC ####[facility] Wrjovlnors6726 [place] [address]Dr. Airam Tripathi IG % 0.4 % Normal 0.0-0.5 [facility] Comment on above: Performed By: #### C BC ####[facility] Jjkrmwinjp5052 [place] [address]Dr. Airam Tripathi LYMPH # 1.7 103/ul Normal 1.2-3.8 [facility] Comment on above: Performed By: #### C BC ####[facility] Qbcbtabume[address] [place], [place] [address]DrKianna Tripathi Lymphocytes/100 WBC (Bld) 24.8 % Normal 20.5-60.0 [facility] Comment on above: Performed By: #### C BC ####[facility] Qmemdskmsu8160 [place] [address]DrKianna Tripathi MANUAL DIFF REQ NO Normal [facility] Comment on above: Performed By: #### C BC ####[facility] Yodfizwqkm5834 [place] [address]Dr. Airam Tripathi MCH (RBC) [Entitic mass] 29.6 pg Normal 26.7-34.0 [facility] Comment on above: Performed By: #### C BC ####[facility] Mwynzdnxvq3365 [place] [address]Dr. Airam Tripathi MCHC (RBC) [Mass/Vol] 30.6 g/dL Normal 29.9-35.2 [facility] Comment on above: Performed By: #### C BC ####[facility] Xdpugsdcvm0295 [place] [address]Dr. Airam Tripathi MCV (RBC) [Entitic vol] 96.7 fL Normal 81.0-99.0 [facility] Comment on above: Performed By: #### C BC ####[facility] Qflefbuzzd0106 [place] [id number]. Airam Tripathi MONO # 0.4 103/ul Normal 0.3-0.8 [facility] Comment on above: Performed By: #### C BC ####[facility] Ludynutfkj4155 [place] [address]Dr. Airam Tripathi Monocytes/100 WBC (Bld) 6.3 % Normal 1.7-12.0 [facility] Comment on above: Performed By: #### C BC ####[facility] Elojvvxuwl3796 [place] [address]Dr. Airam Tripathi NEUT # 4.5 103/ul Normal 1.4-6.5 [facility] Comment on above: Performed By: #### C BC ####[facility] Iiyiormfqz4150 [place] [address]Dr. Airam Tripathi Neutrophils/100 WBC (Bld) 64.5 % Normal 43.0-75.0 [facility] Comment on above: Performed By: #### C BC ####[facility] Zfhusyfrff2994 [place] [id number]. Airam Tripathi Platelet mean volume (Bld) [Entitic vol] 9.3 fL Critically low 9.5-13.5 [facility] Comment on above: Performed By: #### C BC ####[facility] Dvhxdbxpqj1857 [place] [address]Dr. Airam Tripathi PLT 243 103/ul Normal 150-450 [facility] Comment on above: Performed By: #### C BC ####[facility] Umxtadxzcx2277 [place] [address]Dr. Airam Tripathi RBC 3.31 106/ul Critically low 4.20-5.40 [facility] Comment on above: Performed By: #### C BC ####[facility] Goutambsuo2446 [place] [address]Dr. Airam Tripathi WBC 7.0 103/ul Normal 4.0-11.0 [facility] Comment on above: Performed By: #### C BC ####[facility] Oxrtynqyif4434 [place] [id number]. Airam Tripathi PROF 14(COMP METB)on 022 Albumin [Mass/Vol] 3.3 g/dL Critically low 3.4-5.0 [facility] Comment on above: Performed By: #### C MP ####[facility] Muxvjgxxek9702 [place] [address]Dr. Airam Tripathi Albumin/Globulin [Mass ratio] 1.1 {ratio} Normal [facility] Comment on above: Performed By: #### C MP ####[facility] Rzdcrxyczs98[address] [place], [place] [address]Dr. Airam Tripathi ALP [Catalytic activity/Vol] 126 U/L Critically high 46-116 [facility] Comment on above: Performed By: #### C MP ####[facility] Hhbdtxcufi75[address] [place], [place] [address]Dr. Airam Tripathi ALT [Catalytic activity/Vol] 21 U/L Normal 14-59 [facility] Comment on above: Performed By: #### C MP ####[facility] Jyprdewqex97[address] [place], [place] [address]Dr. Airam Tripathi Anion gap [Moles/Vol] 11.8 mmol/L Normal [facility] Comment on above: Performed By: #### C MP ####[facility] Rnzbxtidyu6[address] [place], [place] [address]Dr. Airam Tripathi AST [Catalytic activity/Vol] 22 U/L Normal 15-37 [facility] Comment on above: Performed By: #### C MP ####[facility] Iduepdkucf8475[address] [place], [place] [address]Dr. Airam Tripathi Bilirubin [Mass/Vol] 0.3 mg/dL Normal 0.2-1.0 [facility] Comment on above: Performed By: #### C MP ####[facility] Rsrgjocydt4364[address] [place], [place] [address]Dr. Airam Tripathi Calcium [Mass/Vol] 8.7 mg/dL Normal 8.5-10.1 [facility] Comment on above: Performed By: #### C MP ####[facility] Yixhfdxceh0759 [place] [address]Dr. Airam Tripathi Chloride [Moles/Vol] 102 mmol/L Normal 98-107 [facility] Comment on above: Performed By: #### C MP ####[facility] Tmarggmega9752 [place] [address]Dr. Airam Tripathi CO2 [Moles/Vol] 25.5 mmol/L Normal 21.0-32.0 [facility] Comment on above: Performed By: #### C MP ####[facility] Thkmxjtmwc5355[address] [place], [place] [address]Dr. Airam Tripathi Creatinine [Mass/Vol] 1.43 mg/dL Critically high 0.55-1.02 [facility] Comment on above: Performed By: #### C MP ####[facility] Foiytivawi4[address] [place], [place] [address]Dr. Airam Tripathi EGFR-AF CYPRIOT 46 mL/min/1.73m2 Critically low >=60 [facility] Comment on above: Performed By: #### C MP ####[facility] Pupmkmhwsa254[address] [place], [place] [address]Dr. Airam Tripathi EGFR-NON AF CYPRIOT 38 mL/min/1.73m2 Critically low >=60 [facility] Comment on above: Performed By: #### C MP ####[facility] Xcghbzhygr8225[address] [place], [place] [address]Dr. Airam Tripathi Globulin (S) [Mass/Vol] 2.9 g/dL Normal [facility] Comment on above: Performed By: #### C MP ####[facility] Wwobkodmup457[address] [place], [place] [address]Dr. Airam Tripathi Glucose [Mass/Vol] 83 mg/dL Normal 74-106 [facility] Comment on above: Performed By: #### C MP ####[facility] Aucyegmpep9387[address] [place], [place] [address]Dr. Airam Tripathi Potassium [Moles/Vol] 4.3 mmol/L Normal 3.5-5.1 [facility] Comment on above: Performed By: #### C MP ####[facility] Xsyrgvrlfx6915 [place] [address]Dr. Airam Tripathi Protein [Mass/Vol] 6.2 g/dL Critically low 6.4-8.2 [facility] Comment on above: Performed By: #### C MP ####[facility] Emcrznljjq6385[address] [place], [place] [address]Dr. Airam Tripathi Sodium [Moles/Vol] 135 mmol/L Critically low 136-145 [facility] Comment on above: Performed By: #### C MP ####[facility] Drwreznkxs8625[address] [place], [place] [address]Dr. Airam Deuce Urea nitrogen [Mass/Vol] 39.0 mg/dL Critically high 7.0-18.0 [facility] Comment on above: Performed By: #### C MP ####[facility] Hswsuppaae6[address] [place], [place] [address]Dr. Airam Deuce Urea nitrogen/Creatinine [Mass ratio] 27.3 mg/mg Normal [facility] Comment on above: Performed By: #### C MP ####[facility] Vtsjacofmi1517[address] [place], [place] [address]Dr. Airam Deuce OSMOLALITYon 02-02-2022 Osmolality [Osmolality] 292 mosm/kg Normal 275-295 [facility] Comment on above: Performed By: #### O SMO ####[facility] Kllnqvvnii812[address] [place], [place] [address]Dr. Airam Deuce CBC AUTO DIFFon 01-27-2022 BASO # 0.0 103/ul Normal 0.0-0.1 [facility] Comment on above: Performed By: #### C BC ####[facility] Cwlwpnkshq8[address] [place], [place] [address]Dr. Airam Deuce Basophils/100 WBC (Bld) 0.4 % Normal 0.2-2.0 [facility] Comment on above: Performed By: #### C BC ####[facility] Ogwtsnfvzu0694[address] [place], [place] [address]Dr. Airam Tripathi EO # 0.2 103/ul Normal 0.0-0.7 [facility] Comment on above: Performed By: #### C BC ####[facility] Plhjzwnfsj8289 [place] [id number]. Airam Tripathi Eosinophils/100 WBC (Bld) 3.4 % Normal 0.9-7.0 [facility] Comment on above: Performed By: #### C BC ####[facility] Obmirfsbaj2003 [place] [id number]. Airam Tripathi Erythrocyte distribution width (RBC) [Ratio] 13.1 % Normal 11.0-15.0 [facility] Comment on above: Performed By: #### C BC ####[facility] Gbnhtwjdrv5515 [place] [address]Dr. Airam Tripathi Hematocrit (Bld) [Volume fraction] 31.6 % Critically low 36.0-48.0 [facility] Comment on above: Performed By: #### C BC ####[facility] Deqnazaomf[address] [place], [place] [address]Dr. Airam Tripathi Hemoglobin (Bld) [Mass/Vol] 9.9 g/dL Critically low 12.0-16.0 [facility] Comment on above: Performed By: #### C BC ####[facility] Wqvzinwjvo9622[address] [place], [place] [address]Dr. Airam Tripathi IG # 0.02 10e3/ul Normal 0.00-0.03 [facility] Comment on above: Performed By: #### C BC ####[facility] Jbjxqkctzp[address] [place], [place] [address]Dr. Airam Tripathi IG % 0.4 % Normal 0.0-0.5 [facility] Comment on above: Performed By: #### C BC ####[facility] Nuaozguydw434[address] [place], [place] [address]Dr. Airam Tripathi LYMPH # 1.0 103/ul Critically low 1.2-3.8 [facility] Comment on above: Performed By: #### C BC ####[facility] Fsszvgubro50[address] [place], [place] [address]Dr. Airam Tripathi Lymphocytes/100 WBC (Bld) 17.4 % Critically low 20.5-60.0 [facility] Comment on above: Performed By: #### C BC ####[facility] Dtvtgghfil0385 [place] [address]Dr. Airam Tripathi MANUAL DIFF REQ NO Normal [facility] Comment on above: Performed By: #### C BC ####[facility] Tbtsvtcuxq9321 [place] [address]Dr. Airam Tripathi MCH (RBC) [Entitic mass] 30.1 pg Normal 26.7-34.0 [facility] Comment on above: Performed By: #### C BC ####[facility] Wuuxbhsmaq7095 [place] [address]Dr. Airam Tripathi MCHC (RBC) [Mass/Vol] 31.3 g/dL Normal 29.9-35.2 [facility] Comment on above: Performed By: #### C BC ####[facility] Ipviwwpwkl24[address] [place], [place] [address]Dr. Airam Tripathi MCV (RBC) [Entitic vol] 96.0 fL Normal 81.0-99.0 [facility] Comment on above: Performed By: #### C BC ####[facility] Wxwweshwjg040[address] [place], [place] [address]Dr. Airam Tripathi MONO # 0.5 103/ul Normal 0.3-0.8 [facility] Comment on above: Performed By: #### C BC ####[facility] Lrrdvigkih39[address] [place], [place] [address]Dr. Airam Tripathi Monocytes/100 WBC (Bld) 8.6 % Normal 1.7-12.0 [facility] Comment on above: Performed By: #### C BC ####[facility] Kulmhrwddi[address] [place], [place] [address]DrKianna Tripathi NEUT # 3.9 103/ul Normal 1.4-6.5 [facility] Comment on above: Performed By: #### C BC ####[facility] Zktecxkdly27[address] [place], [place] [address]DrKianna Tripathi Neutrophils/100 WBC (Bld) 69.8 % Normal 43.0-75.0 [facility] Comment on above: Performed By: #### C BC ####[facility] Kprvqrfugh6520 [place] [address]Dr. Airam Tripathi Platelet mean volume (Bld) [Entitic vol] 9.6 fL Normal 9.5-13.5 [facility] Comment on above: Performed By: #### C BC ####[facility] Roxrsybbzu6194 [place] [address]Dr. Airam Tripathi PLT 228 103/ul Normal 150-450 [facility] Comment on above: Performed By: #### C BC ####[facility] Llkuctvzwe8753 [place] [address]Dr. Airam Tripathi RBC 3.29 106/ul Critically low 4.20-5.40 [facility] Comment on above: Performed By: #### C BC ####[facility] Yrmxpehnfk5085 [place] [address]DrKianna Tripathi WBC 5.6 103/ul Normal 4.0-11.0 [facility] Comment on above: Performed By: #### C BC ####[facility] Hjkotcjljg5585 [place] [id number] Tripathi PROF 14(COMP METB)on 022 Albumin [Mass/Vol] 3.1 g/dL Critically low 3.4-5.0 [facility] Comment on above: Performed By: #### C MP ####[facility] Kqggnwdzaf5043 [place] [address]DrKianna Tripathi Albumin/Globulin [Mass ratio] 1.0 {ratio} Normal [facility] Comment on above: Performed By: #### C MP ####[facility] Fnjsnwgvtw3445 [place] [id number] Tripathi ALP [Catalytic activity/Vol] 131 U/L Critically high 46-116 [facility] Comment on above: Performed By: #### C MP ####[facility] Nmijiexzxa2930 [place] [address]DrKianna Tripathi ALT [Catalytic activity/Vol] 19 U/L Normal 14-59 [facility] Comment on above: Performed By: #### C MP ####[facility] Zzjstbpied9747 [place] [address]Dr. Airam Tripathi Anion gap [Moles/Vol] 12.9 mmol/L Normal [facility] Comment on above: Performed By: #### C MP ####[facility] Ubjpyyojuk0833 [place] [address]Dr. Airam Deuce AST [Catalytic activity/Vol] 21 U/L Normal 15-37 [facility] Comment on above: Performed By: #### C MP ####[facility] Lachvftubf2636 [place] [address]Dr. Airam Tripathi Bilirubin [Mass/Vol] 0.2 mg/dL Normal 0.2-1.0 [facility] Comment on above: Performed By: #### C MP ####[facility] Zyapsmhszx[address] [place], [place] [address]Dr. Airam Tripathi Calcium [Mass/Vol] 8.4 mg/dL Critically low 8.5-10.1 [facility] Comment on above: Performed By: #### C MP ####[facility] Ejfdxlztod89[address] [place], [place] [address]Dr. Airam Tripathi Chloride [Moles/Vol] 103 mmol/L Normal 98-107 [facility] Comment on above: Performed By: #### C MP ####[facility] Focidabqen2404 [place] [address]Dr. Airam Tripathi CO2 [Moles/Vol] 23.7 mmol/L Normal 21.0-32.0 [facility] Comment on above: Performed By: #### C MP ####[facility] Putecohukp[address] [place], [place] [address]Dr. Airam Tripathi Creatinine [Mass/Vol] 1.37 mg/dL Critically high 0.55-1.02 [facility] Comment on above: Performed By: #### C MP ####[facility] Wytoqqccky7764 [place] [id number]. Airam Tripathi EGFR-AF CYPRIOT 48 mL/min/1.73m2 Critically low >=60 [facility] Comment on above: Performed By: #### C MP ####[facility] Tgpwgujzqz5505 [place] [address]Dr. Airam Tripathi EGFR-NON AF CYPRIOT 39 mL/min/1.73m2 Critically low >=60 [facility] Comment on above: Performed By: #### C MP ####[facility] Ghyetgetnv4320 [place] [address]Dr. Airam Tripathi Globulin (S) [Mass/Vol] 3.1 g/dL Normal [facility] Comment on above: Performed By: #### C MP ####[facility] Dfqcvblcuk2091 [place] [address]Dr. Airam Tripathi Glucose [Mass/Vol] 88 mg/dL Normal 74-106 [facility] Comment on above: Performed By: #### C MP ####[facility] Neeuckjfhl5596 [place] [address]Dr. Airam Deuce Potassium [Moles/Vol] 4.6 mmol/L Normal 3.5-5.1 [facility] Comment on above: Performed By: #### C MP ####[facility] Lkmtjjfkik3985 [place] [address]Dr. Airam Tripathi Protein [Mass/Vol] 6.2 g/dL Critically low 6.4-8.2 [facility] Comment on above: Performed By: #### C MP ####[facility] Dyvmhfftso5998 [place] [address]Dr. Airam Tripathi Sodium [Moles/Vol] 135 mmol/L Critically low 136-145 [facility] Comment on above: Performed By: #### C MP ####[facility] Flemnnwsuc8156 [place] [address]Dr. Airam Tripathi Urea nitrogen [Mass/Vol] 34.0 mg/dL Critically high 7.0-18.0 [facility] Comment on above: Performed By: #### C MP ####[facility] Yqflaggyzi5092 [place] [phone]. Airam eDuce Urea nitrogen/Creatinine [Mass ratio] 24.8 mg/mg Normal [facility] Comment on above: Performed By: #### C MP ####[facility] Jroimeiyap0048 [place] [address]Dr. Airam Tripathi OSMOLALITYon 01-21-2022 Osmolality [Osmolality] 276 mosm/kg Normal 275-295 [facility] Comment on above: Performed By: #### O SMO ####[facility] Ryekudftca68[address] [place], [place] [address]Dr. Selenaenil Deuce MRI CSPINE WO CONon 01-21-20 22 MRI CSPINE WO CON Normal [facility] CBC AUTO DIFFon 01-19-2022 BASO # 0.0 103/ul Normal 0.0-0.1 [facility] Comment on above: Performed By: #### C BC ####[facility] Rqymxmeeqm49[address] [place], [place] [address]Dr. Airam Tripathi Basophils/100 WBC (Bld) 0.2 % Normal 0.2-2.0 [facility] Comment on above: Performed By: #### C BC ####[facility] Ixaporbrgm04[address] [place], [place] [address]Dr. Airam Tripathi EO # 0.2 103/ul Normal 0.0-0.7 [facility] Comment on above: Performed By: #### C BC ####[facility] Pyduqjemmh99[address] [place], [place] [address]Dr. Airam Tripathi Eosinophils/100 WBC (Bld) 2.1 % Normal 0.9-7.0 [facility] Comment on above: Performed By: #### C BC ####[facility] Typkrumxwe1946[address] [place], [place] [address]Dr. Airam Tripathi Erythrocyte distribution width (RBC) [Ratio] 12.7 % Normal 11.0-15.0 [facility] Comment on above: Performed By: #### C BC ####[facility] Nsjcxatagc[address] [place], [place] [address]Dr. Airam Tripathi Hematocrit (Bld) [Volume fraction] 32.2 % Critically low 36.0-48.0 [facility] Comment on above: Performed By: #### C BC ####[facility] Rfodzryhhx1069 [place] [id number]. Airam Tripathi Hemoglobin (Bld) [Mass/Vol] 10.4 g/dL Critically low 12.0-16.0 [facility] Comment on above: Performed By: #### C BC ####[facility] Ajfbfsnmku1235 [place] [id number]. Airam Tripathi IG # 0.03 10e3/ul Normal 0.00-0.03 [facility] Comment on above: Performed By: #### C BC ####[facility] Expjuvjsfc6092 [place] [id number]. Airam Tripathi IG % 0.3 % Normal 0.0-0.5 [facility] Comment on above: Performed By: #### C BC ####[facility] Pucenexphi8082 [place] [address]Dr. Airam Tripathi LYMPH # 1.4 103/ul Normal 1.2-3.8 [facility] Comment on above: Performed By: #### C BC ####[facility] Ksqukzwaet2842 [place] [address]Dr. Airam Tripathi Lymphocytes/100 WBC (Bld) 16.0 % Critically low 20.5-60.0 [facility] Comment on above: Performed By: #### C BC ####[facility] Wvnhmznwtq0542 [place] [address]Dr. Airam Tripathi MANUAL DIFF REQ NO Normal [facility] Comment on above: Performed By: #### C BC ####[facility] Tkjcngpoiv9553 [place] [address]Dr. Airam Tripathi MCH (RBC) [Entitic mass] 30.0 pg Normal 26.7-34.0 [facility] [facility] Comment on above: Performed By: #### C BC ####[facility] Xvetgcjlvm6[address] [place] [id number]. Airam Tripathi MCHC (RBC) [Mass/Vol] 32.3 g/dL Normal 29.9-35.2 [facility] Comment on above: Performed By: #### C BC ####[facility] Ogzmxvsmec53[address] [place] [id number]. Airam Tripathi MCV (RBC) [Entitic vol] 92.8 fL Normal 81.0-99.0 [facility] Comment on above: Performed By: #### C BC ####[facility] Ruanckhwul[address] [place] [address]Dr. Airam Tripathi MONO # 0.4 103/ul Normal 0.3-0.8 [facility] Comment on above: Performed By: #### C BC ####[facility] Irwraulmnp66[address] [place] [address]Dr. Airam Deuce Monocytes/100 WBC (Bld) 4.9 % Normal 1.7-12.0 [facility] Comment on above: Performed By: #### C BC ####[facility] Nwwoypuowy[address] [place] [address]Dr. Airam Tripathi NEUT # 6.6 103/ul Critically high 1.4-6.5 [facility] Comment on above: Performed By: #### C BC ####[facility] Hqgbmiqhbo[address] [place], [place] [address]Dr. Airam Tripathi Neutrophils/100 WBC (Bld) 76.5 % Critically high 43.0-75.0 [facility] Comment on above: Performed By: #### C BC ####[facility] Lrhkxdwggg17[address] [place], [place] [address]Dr. Airam Tripathi Platelet mean volume (Bld) [Entitic vol] 9.8 fL Normal 9.5-13.5 [facility] Comment on above: Performed By: #### C BC ####[facility] Bbuqsfjadn[address] [place], [place] [address]Dr. Airam Deuce PLT 262 103/ul Normal 150-450 [facility] Comment on above: Performed By: #### C BC ####[facility] Zmceirpvcm06[address] [place], [place] [address]Dr. Airam Deuce RBC 3.47 106/ul Critically low 4.20-5.40 The [facility] Comment on above: Performed By: #### C BC ####[facility] Wwkmwbaiwo[address] [place], [place] [address]Dr. Airam Tripathi WBC 8.7 103/ul Normal 4.0-11.0 [facility] Comment on above: Performed By: #### C BC ####[facility] Hzjattfart4562 [place] [address]Dr. Airam Tripathi PROF 14(COMP METB)on 022 Albumin [Mass/Vol] 3.3 g/dL Critically low 3.4-5.0 [facility] Comment on above: Performed By: #### C MP ####[facility] Qisglbtaxw6446 [place] [address]Dr. Airam Tripathi Albumin/Globulin [Mass ratio] 1.1 {ratio} Normal [facility] Comment on above: Performed By: #### C MP ####[facility] Nntwegijaz[address] [place], [place] [address]Dr. Airam Tripathi ALP [Catalytic activity/Vol] 114 U/L Normal 46-116 [facility] Comment on above: Performed By: #### C MP ####[facility] Jjnoojwsyf35[address] [place], [place] [address]Dr. Airam Tripathi ALT [Catalytic activity/Vol] 20 U/L Normal 14-59 [facility] Comment on above: Performed By: #### C MP ####[facility] Uzhsaoplql3575 [place] [address]Dr. Airam Tripathi Anion gap [Moles/Vol] 14.7 mmol/L Normal [facility] Comment on above: Performed By: #### C MP ####[facility] Gyugmmnyrj218[address] [place], [place] [address]Dr. Airam Tripathi AST [Catalytic activity/Vol] 22 U/L Normal 15-37 [facility] Comment on above: Performed By: #### C MP ####[facility] Sbiylqpprp5[address] [place], [place] [address]Dr. Airam Tripathi Bilirubin [Mass/Vol] 0.3 mg/dL Normal 0.2-1.0 [facility] Comment on above: Performed By: #### C MP ####[facility] Yixaprjzem488[address] [place], [place] [address]Dr. Airam Tripathi Calcium [Mass/Vol] 8.8 mg/dL Normal 8.5-10.1 [facility] Comment on above: Performed By: #### C MP ####[facility] Srmqjvydna[address] [place], [place] [address]Dr. Airam Tripathi Chloride [Moles/Vol] 97 mmol/L Critically low 98-107 [facility] Comment on above: Performed By: #### C MP ####[facility] Ivipnksdoj1894[address] [place], [place] [address]Dr. Airam Tripathi CO2 [Moles/Vol] 24.5 mmol/L Normal 21.0-32.0 [facility] Comment on above: Performed By: #### C MP ####[facility] Vwfzkjrumy6617[address] [place], [place] [address]Dr. Airam Tripathi Creatinine [Mass/Vol] 1.28 mg/dL Critically high 0.55-1.02 [facility] Comment on above: Performed By: #### C MP ####[facility] Hcfutyacks78[address] [place], [place] [address]Dr. Airam Tripathi EGFR-AF CYPRIOT 52 mL/min/1.73m2 Critically low >=60 [facility] Comment on above: Performed By: #### C MP ####[facility] Hqspsxrdvh09[address] [place], [place] [address]Dr. Airam Tripathi EGFR-NON AF CYPRIOT 43 mL/min/1.73m2 Critically low >=60 [facility] Comment on above: Performed By: #### C MP ####[facility] Ovblqkswmc5[address] [place], [place] [address]Dr. Airam Tripathi Globulin (S) [Mass/Vol] 3.1 g/dL Normal [facility] Comment on above: Performed By: #### C MP ####[facility] Roifmrynke64[address] [place], [place] [address]Dr. Airam Tripathi Glucose [Mass/Vol] 87 mg/dL Normal 74-106 [facility] Comment on above: Performed By: #### C MP ####[facility] Qfqkqoxsfp9067[address] [place], [place] [address]Dr. Airam Tripathi Potassium [Moles/Vol] 4.2 mmol/L Normal 3.5-5.1 [facility] Comment on above: Performed By: #### C MP ####[facility] Ypeurvvhoe3236 [place] [address]Dr. Airam Tripathi Protein [Mass/Vol] 6.4 g/dL Normal 6.4-8.2 [facility] Comment on above: Performed By: #### C MP ####[facility] Iytguzclqr0597[address] [place], [place] [address]Dr. Airam Tripathi Sodium [Moles/Vol] 132 mmol/L Critically low 136-145 Th [facility] Comment on above: Performed By: #### C MP ####[facility] Bsbsxytcuj7[address] [place], [place] [address]Dr. Airam Tripathi Urea nitrogen [Mass/Vol] 36.0 mg/dL Critically high 7.0-18.0 [facility] Comment on above: Performed By: #### C MP ####[facility] Ktlqetoqjc0332[address] [place], [place] [address]Dr. Airam Tripathi Urea nitrogen/Creatinine [Mass ratio] 28.1 mg/mg Normal [facility] Comment on above: Performed By: #### C MP ####[facility] Rfshoxyytd[address] [place], [place] [address]Dr. Airam Tripathi XR DEXA BONE DENSITYon 01-19 XR DEXA BONE DENSITY Normal [facility] OSMOLALITYon 01-13-2022 Osmolality [Osmolality] 277 mosm/kg Normal 275-295 [facility] Comment on above: Performed By: #### O SMO ####[facility] Slwunflfzm33[address] [place], [place] [address]Dr. Airam Tripathi CBC AUTO DIFFon 01-11-2022 BASO # 0.0 103/ul Normal 0.0-0.1 [facility] Comment on above: Performed By: #### C BC ####[facility] Qfvynoqvsq7634[address] [place], [place] [address]Dr. Airam Tripathi Basophils/100 WBC (Bld) 0.5 % Normal 0.2-2.0 [facility] Comment on above: Performed By: #### C BC ####[facility] Drvxygdzyk1398 [place] [address]Dr. Airam Tripathi EO # 0.2 103/ul Normal 0.0-0.7 [facility] Comment on above: Performed By: #### C BC ####[facility] Cbzieklgce4421 [place] [address]Dr. Airam Tripathi Eosinophils/100 WBC (Bld) 3.1 % Normal 0.9-7.0 [facility] Comment on above: Performed By: #### C BC ####[facility] Icalqeorrx7[address] [place], [place] [address]Dr. Selenaneil Tripathi Erythrocyte distribution width (RBC) [Ratio] 12.5 % Normal 11.0-15.0 [facility] Comment on above: Performed By: #### C BC ####[facility] Oxcewakaic7[address] [place], [place] [address]Dr. Selenaneil Tripathi Hematocrit (Bld) [Volume fraction] 34.4 % Critically low 36.0-48.0 [facility] Comment on above: Performed By: #### C BC ####[facility] Wxlqqqfgmr587[address] [place], [place] [address]Dr. Airam Tripathi Hemoglobin (Bld) [Mass/Vol] 11.0 g/dL Critically low 12.0-16.0 [facility] Comment on above: Performed By: #### C BC ####[facility] Jlzmjprfaj[address] [place], [place] [address]Dr. Selenaneil Tripathi IG # 0.03 10e3/ul Normal 0.00-0.03 [facility] Comment on above: Performed By: #### C BC ####[facility] Nndirjixiw834[address] [place], [place] [address]Dr. Selenaneil Tripathi IG % 0.5 % Normal 0.0-0.5 [facility] Comment on above: Performed By: #### C BC ####[facility] Khjsehvlfn16[address] [place], [place] [address]Dr. Airam Tripathi LYMPH # 1.6 103/ul Normal 1.2-3.8 [facility] Comment on above: Performed By: #### C BC ####[facility] Jqgclibtbm8346 [place] [id number]. Airam Tripathi Lymphocytes/100 WBC (Bld) 28.0 % Normal 20.5-60.0 [facility] Comment on above: Performed By: #### C BC ####[facility] Sxrokfdhzb2378 [place] [address]Dr. Airam Tripathi MANUAL DIFF REQ NO Normal [facility] Comment on above: Performed By: #### C BC ####[facility] Tmsddnwdvv5245 [place] [id number]. Airam Tripathi MCH (RBC) [Entitic mass] 30.1 pg Normal 26.7-34.0 [facility] Comment on above: Performed By: #### C BC ####[facility] Kwdwqicxnx32[address] [place], [place] [address]Dr. Airam Tripathi MCHC (RBC) [Mass/Vol] 32.0 g/dL Normal 29.9-35.2 [facility] Comment on above: Performed By: #### C BC ####[facility] Iiygdffikz20[address] [place], [place] [address]Dr. Airam Tripathi MCV (RBC) [Entitic vol] 94.0 fL Normal 81.0-99.0 [facility] Comment on above: Performed By: #### C BC ####[facility] Lfhwirewwv25[address] [place], [place] [address]Dr. Airam Tripathi MONO # 0.4 103/ul Normal 0.3-0.8 [facility] Comment on above: Performed By: #### C BC ####[facility] Mrdgtzvnlu8[address] [place], [place] [address]Dr. Airam Tripathi Monocytes/100 WBC (Bld) 7.5 % Normal 1.7-12.0 [facility] Comment on above: Performed By: #### C BC ####[facility] Uxxdrmezrf9137[address] [place], [place] [address]DrKianna Tripathi NEUT # 3.5 103/ul Normal 1.4-6.5 [facility] Comment on above: Performed By: #### C BC ####[facility] Lcahuetfpd6765 [place] [id number]. Airam Tripathi Neutrophils/100 WBC (Bld) 60.4 % Normal 43.0-75.0 [facility] Comment on above: Performed By: #### C BC ####[facility] Lfdrxlnmfo9235 [place] [id number]. Airam Tripathi Platelet mean volume (Bld) [Entitic vol] 10.0 fL Normal 9.5-13.5 [facility] Comment on above: Performed By: #### C BC ####[facility] Xmdhrrbqxm5660 [place] [address]Dr. Airam Tripathi PLT 300 103/ul Normal 150-450 [facility] Comment on above: Performed By: #### C BC ####[facility] Jytudttlfh5814 [place] [address]Dr. Airam Tripathi RBC 3.66 106/ul Critically low 4.20-5.40 [facility] Comment on above: Performed By: #### C BC ####[facility] Ejuulcyhqm2416 [place] [address]Dr. Airam Tripathi WBC 5.7 103/ul Normal 4.0-11.0 [facility] Comment on above: Performed By: #### C BC ####[facility] Yheffvutfh0665 [place] [address]DrKianna Tripathi PROF 14(COMP METB)on 022 Albumin [Mass/Vol] 3.3 g/dL Critically low 3.4-5.0 Th e [facility] Comment on above: Performed By: #### C MP ####[facility] Ylvktrypsn2171 [place] [address]DrKianna Tripathi Albumin/Globulin [Mass ratio] 1.0 {ratio} Normal [facility] Comment on above: Performed By: #### C MP ####[facility] Atydlhonqd8109 [place] [id number] Tripathi ALP [Catalytic activity/Vol] 138 U/L Critically high 46-116 [facility] Comment on above: Performed By: #### C MP ####[facility] Wmhejwsydo2809 [place] [id number]. Airam Tripathi ALT [Catalytic activity/Vol] 25 U/L Normal 14-59 [facility] Comment on above: Performed By: #### C MP ####[facility] Eaazfyhoer4272 [place] [address]Dr. Airam Tripathi Anion gap [Moles/Vol] 14.0 mmol/L Normal Th e [facility] Comment on above: Performed By: #### C MP ####[facility] Iuufqomgjs4364 [place] [address]Dr. Airam Tripathi AST [Catalytic activity/Vol] 19 U/L Normal 15-37 [facility] Comment on above: Performed By: #### C MP ####[facility] Ozqwlxrwbh[address] [place], [place] [address]Dr. Airam Deuce Bilirubin [Mass/Vol] 0.3 mg/dL Normal 0.2-1.0 [facility] Comment on above: Performed By: #### C MP ####[facility] Oiicdadvyt[address] [place], [place] [address]Dr. Airam Deuce Calcium [Mass/Vol] 8.7 mg/dL Normal 8.5-10.1 [facility] Comment on above: Performed By: #### C MP ####[facility] Lierdvesbt5[address] [place], [place] [address]Dr. Airam Deuce Chloride [Moles/Vol] 99 mmol/L Normal 98-107 [facility] Comment on above: Performed By: #### C MP ####[facility] Riozsakjhd1688 [place] [address]Dr. Airam Tripathi CO2 [Moles/Vol] 25.4 mmol/L Normal 21.0-32.0 [facility] Comment on above: Performed By: #### C MP ####[facility] Fqokpzgihg[address] [place], [place] [address]Dr. Selenaneil Tripathi Creatinine [Mass/Vol] 1.22 mg/dL Critically high 0.55-1.02 [facility] Comment on above: Performed By: #### C MP ####[facility] Qiresojods1865 [place] [id number]. Airam Tripathi EGFR-AF CYPRIOT 55 mL/min/1.73m2 Critically low >=60 [facility] Comment on above: Performed By: #### C MP ####[facility] Yediwqkhvv6098 [place] [address]Dr. Airam Deuce EGFR-NON AF CYPRIOT 45 mL/min/1.73m2 Critically low >=60 [facility] Comment on above: Performed By: #### C MP ####[facility] Rmnlkiwbmk6011 [place] [address]Dr. Selenaneil Deuce Globulin (S) [Mass/Vol] 3.2 g/dL Normal [facility] Comment on above: Performed By: #### C MP ####[facility] Chhfaszjmm3885 [place] [address]Dr. Airam Tripathi Glucose [Mass/Vol] 111 mg/dL Critically high 74-106 [facility] Comment on above: Performed By: #### C MP ####[facility] Pdnanmnjsg4609 [place] [address]Dr. Airam Tripathi Potassium [Moles/Vol] 4.4 mmol/L Normal 3.5-5.1 [facility] Comment on above: Performed By: #### C MP ####[facility] Lbeaclstid2968 [place] [address]Dr. Airam Tripathi Protein [Mass/Vol] 6.5 g/dL Normal 6.4-8.2 [facility] Comment on above: Performed By: #### C MP ####[facility] Orgrmzwlnv3388 [place] [address]Dr. Airam Tripathi Sodium [Moles/Vol] 134 mmol/L Critically low 136-145 Th [facility] Comment on above: Performed By: #### C MP ####[facility] Rocjmuuaue1647 [place] [id number]. Airam Tripathi Urea nitrogen [Mass/Vol] 27.0 mg/dL Critically high 7.0-18.0 [facility] Comment on above: Performed By: #### C MP ####[facility] Gqtrwqqwxw2765 [place], [place] [address]ZwKianna Tripathi Urea nitrogen/Creatinine [Mass ratio] 22.1 mg/mg Normal [facility] Comment on above: Performed By: #### C MP ####[facility] Bkkelqmlrp8048 [place], [place] [address]. Air[address] Tri[address] CT CERVICAL SPINE WITHOUT CO NTRASTon 01-10-2022 CT CERVICAL SPINE WITHOUT CONTRAST [facility] Department of Radiology [address] [place] [id number] Patient Name: MABEL MOSER : 1960 [...] achievable. Electronically signed: Ayleen Ny. Transcribed by: [email or web address], User Resident: Electronically Signed by: AYLEEN [place] @ 01/12/2022 12:32 PM Normal The [facility] OSMOLALITYon 01-07-2022 Osmolality [Osmolality] 286 mosm/kg Normal 275-295 [facility] Comment on above: Performed By: #### O SMO ####[facility] Xpxfeuauik8206 [place] [address]Dr. Airam Tripathi CBC AUTO DIFFon 01-06-2022 BASO # 0.0 103/ul Normal 0.0-0.1 [facility] Comment on above: Performed By: #### C BC ####[facility] Bnademfbby1628 [place] [address]DrKianna Tripathi Basophils/100 WBC (Bld) 0.3 % Normal 0.2-2.0 [facility] Comment on above: Performed By: #### C BC ####[facility] Ceutdeibhz1512 [place] [address]Dr. Airam Tripathi EO # 0.2 103/ul Normal 0.0-0.7 [facility] Comment on above: Performed By: #### C BC ####[facility] Guynuennmf1070 [place] [address]Dr. Airam Tripathi Eosinophils/100 WBC (Bld) 4.1 % Normal 0.9-7.0 [facility] Comment on above: Performed By: #### C BC ####[facility] Wvkhfhebzc4122 [place] [address]Dr. Airam Tripathi Erythrocyte distribution width (RBC) [Ratio] 12.9 % Normal 11.0-15.0 [facility] Comment on above: Performed By: #### C BC ####[facility] Ueifbpuzlf0344 [place] [address]Dr. Airam Tripathi Hematocrit (Bld) [Volume fraction] 34.2 % Critically low 36.0-48.0 [facility] Comment on above: Performed By: #### C BC ####[facility] Fohfcnrhhi8396 [place] [address]Dr. Airam Tripathi Hemoglobin (Bld) [Mass/Vol] 10.6 g/dL Critically low 12.0-16.0 [facility] Comment on above: Performed By: #### C BC ####[facility] Dmrpaphiku1428 [place] [address]Dr. Airam Tripathi IG # 0.03 10e3/ul Normal 0.00-0.03 [facility] Comment on above: Performed By: #### C BC ####[facility] Mtgyfhvwdr5518 [place] [address]Dr. Airam Tripathi IG % 0.5 % Normal 0.0-0.5 [facility] Comment on above: Performed By: #### C BC ####[facility] Lhduvtiwlv6145 [place] [address]Dr. Airam Tripathi LYMPH # 1.1 103/ul Critically low 1.2-3.8 [facility] Comment on above: Performed By: #### C BC ####[facility] Hbrauxsmkl1207 [place] [address]Dr. Airam Deuce Lymphocytes/100 WBC (Bld) 18.2 % Critically low 20.5-60.0 [facility] Comment on above: Performed By: #### C BC ####[facility] Rezosohneb3343 [place] [address]Dr. Selenaneil Tripathi MANUAL DIFF REQ NO Normal [facility] Comment on above: Performed By: #### C BC ####[facility] Wgvtudiwbc2924 [place] [address]Dr. Airam Deuce MCH (RBC) [Entitic mass] 29.6 pg Normal 26.7-34.0 [facility] Comment on above: Performed By: #### C BC ####[facility] Ziplfzgksr5[address] [place], [place] [address]Dr. Selenaneil Tripathi MCHC (RBC) [Mass/Vol] 31.0 g/dL Normal 29.9-35.2 [facility] Comment on above: Performed By: #### C BC ####[facility] Rintiaifze84[address] [place], [place] [address]Dr. Selenaneil Tripathi MCV (RBC) [Entitic vol] 95.5 fL Normal 81.0-99.0 [facility] Comment on above: Performed By: #### C BC ####[facility] Twdydsdupm58[address] [place], [place] [address]Dr. Airam Tripathi MONO # 0.5 103/ul Normal 0.3-0.8 [facility] Comment on above: Performed By: #### C BC ####[facility] Xdtzxjsuuy9[address] [place], [place] [address]Dr. Airam Tripathi Monocytes/100 WBC (Bld) 8.5 % Normal 1.7-12.0 [facility] Comment on above: Performed By: #### C BC ####[facility] Iqdusenaaf70[address] [place], [place] [address]Dr. Airam Tripathi NEUT # 4.0 103/ul Normal 1.4-6.5 [facility] Comment on above: Performed By: #### C BC ####[facility] Xlflxnkbty[address] [place], [place] [address]Dr. Airam Tripathi Neutrophils/100 WBC (Bld) 68.4 % Normal 43.0-75.0 [facility] Comment on above: Performed By: #### C BC ####[facility] Keqpbaayne3605 [place] [address]Dr. Airam Tripathi Platelet mean volume (Bld) [Entitic vol] 10.1 fL Normal 9.5-13.5 [facility] Comment on above: Performed By: #### C BC ####[facility] Vxsxfaziek0523 [place] [address]Dr. Airam Tripathi PLT 304 103/ul Normal 150-450 [facility] Comment on above: Performed By: #### C BC ####[facility] Ujmscptqag1534 [place] [address]Dr. Airam Tripathi RBC 3.58 106/ul Critically low 4.20-5.40 [facility] Comment on above: Performed By: #### C BC ####[facility] Jkwohjvhxs[address] [place], [place] [address]Dr. Airam Tripathi WBC 5.9 103/ul Normal 4.0-11.0 [facility] Comment on above: Performed By: #### C BC ####[facility] Kjknlbciwh4[address] [place], [place] [address]Dr. Airam Deuce MG MAMM RT DIAG FUon 022 MG MAMM RT DIAG FU Normal [facility] PROF 14(COMP METB)on 022 Albumin [Mass/Vol] 3.1 g/dL Critically low 3.4-5.0 Th e [facility] Comment on above: Performed By: #### C MP ####[facility] Acgxoiobfl12[address] [place], [place] [address]Dr. Airam Tripathi Albumin/Globulin [Mass ratio] 1.0 {ratio} Normal [facility] Comment on above: Performed By: #### C MP ####[facility] Aemhcwxhli32[address] [place], [place] [address]Dr. Airam Deuce ALP [Catalytic activity/Vol] 143 U/L Critically high 46-116 [facility] Comment on above: Performed By: #### C MP ####[facility] Ityiilkepz8959 [place] [id number]. Airam Tripathi ALT [Catalytic activity/Vol] 23 U/L Normal 14-59 [facility] Comment on above: Performed By: #### C MP ####[facility] Ewvzetyelh9774 [place] [id number]. Airam Tripathi Anion gap [Moles/Vol] 13.2 mmol/L Normal Th [facility] Comment on above: Performed By: #### C MP ####[facility] Qnavxxhfqb9386 [place] [address]Dr. Airam Tripathi AST [Catalytic activity/Vol] 20 U/L Normal 15-37 [facility] Comment on above: Performed By: #### C MP ####[facility] Rqomtxoact[address] [place], [place] [address]Dr. Airam Tripathi Bilirubin [Mass/Vol] 0.3 mg/dL Normal 0.2-1.0 [facility] Comment on above: Performed By: #### C MP ####[facility] Bnqgpagxxd6[address] [place], [place] [address]Dr. Airam Tripathi Calcium [Mass/Vol] 8.2 mg/dL Critically low 8.5-10.1 [facility] Comment on above: Performed By: #### C MP ####[facility] W[address]ujcdzctf[address] [place], [place] [address]Dr. Airam Tripathi Chloride [Moles/Vol] 100 mmol/L Normal 98-107 [facility] Comment on above: Performed By: #### C MP ####[facility] [facility] [address] [place], [place] [id number]. Airam Tripathi CO2 [Moles/Vol] 26.0 mmol/L Normal 21.0-32.0 [facility] Comment on above: Performed By: #### C MP ####[facility] Tcmkjnliss[address] [place], [place] [address]Dr. Airam Tripathi Creatinine [Mass/Vol] 1.52 mg/dL Critically high 0.55-1.02 [facility] Comment on above: Performed By: #### C MP ####[facility] Kdffrqfwhp65[address] [place] [id number]. Airam Tripathi EGFR-AF CYPRIOT 42 mL/min/1.73m2 Critically low >=60 [facility] Comment on above: Performed By: #### C MP ####[facility] Wzojoqmnsi7112 [place] [id number]. Airam Deuce EGFR-NON AF CYPRIOT 35 mL/min/1.73m2 Critically low >=60 [facility] Comment on above: Performed By: #### C MP ####[facility] Knqbhuydla57[address] [place] [address]Dr. Airam Deuce Globulin (S) [Mass/Vol] 3.2 g/dL Normal [facility] Comment on above: Performed By: #### C MP ####[facility] Eocqleyqrl6683 [place] [address]Dr. Airam Tripathi Glucose [Mass/Vol] 84 mg/dL Normal 74-106 [facility] Comment on above: Performed By: #### C MP ####[facility] Vfwqhtrdnh9320 [place] [address]Dr. Airam Tripathi Potassium [Moles/Vol] 4.2 mmol/L Normal 3.5-5.1 [facility] Comment on above: Performed By: #### C MP ####[facility] Puhyhptwzg2157 [place] [address]Dr. Airam Tripathi Protein [Mass/Vol] 6.3 g/dL Critically low 6.4-8.2 [facility] Comment on above: Performed By: #### C MP ####[facility] Nuxbtglvnp0273 [place] [address]Dr. Selenaneil Tripathi Sodium [Moles/Vol] 135 mmol/L Critically low 136-145 [facility] Comment on above: Performed By: #### C MP ####[facility] Fngutpwgpy7553 [place] [address]Dr. Selenaneil Deuce Urea nitrogen [Mass/Vol] 36.0 mg/dL Critically high 7.0-18.0 [facility] Comment on above: Performed By: #### C MP ####[facility] Aaxsktdoiv0175 [place] [address]Dr. Airam Tripathi Urea nitrogen/Creatinine [Mass ratio] 23.7 mg/mg Normal [facility] Comment on above: Performed By: #### C MP ####[facility] Faiesarapm3613 [place] [address]Dr. Airam Tripathi US BREAST RIGHT LIMITEDon US BREAST RIGHT LIMITED Normal [facility] OSMOLALITYon 12-31-2021 Osmolality [Osmolality] 280 mosm/kg Normal 275-295 [facility] Comment on above: Performed By: #### O SMO ####[facility] Ediamkmjnh[address] [place], [place] [address]Dr. Airam Tripathi CBC AUTO DIFFon 12-30-2021 BASO # 0.0 103/ul Normal 0.0-0.1 [facility] Comment on above: Performed By: #### C BC ####[facility] Lwwsfzbydm[address] [place], [place] [address]Dr. Airam Tripathi Basophils/100 WBC (Bld) 0.5 % Normal 0.2-2.0 [facility] Comment on above: Performed By: #### C BC ####[facility] Veuymtiuet[address] [place], [place] [address]Dr. Airam Tripathi EO # 0.3 103/ul Normal 0.0-0.7 [facility] Comment on above: Performed By: #### C BC ####[facility] Ylgputvema13[address] [place], [place] [address]Dr. Airam Tripathi Eosinophils/100 WBC (Bld) 3.5 % Normal 0.9-7.0 [facility] Comment on above: Performed By: #### C BC ####[facility] Bcukddvrsz[address] [place], [place] [address]Dr. Airam Tripathi Erythrocyte distribution width (RBC) [Ratio] 13.0 % Normal 11.0-15.0 [facility] Comment on above: Performed By: #### C BC ####[facility] Wkkmvwcrpc[address] [place], [place] [address]Dr. Airam Tripathi Hematocrit (Bld) [Volume fraction] 34.2 % Critically low 36.0-48.0 [facility] Comment on above: Performed By: #### C BC ####[facility] Mejzgmgpzd8715 [place] [address]Dr. Airam Tripathi Hemoglobin (Bld) [Mass/Vol] 10.4 g/dL Critically low 12.0-16.0 [facility] Comment on above: Performed By: #### C BC ####[facility] Fpclhkqnsm[address] [place], [place] [address]Dr. Airam Tripathi IG # 0.04 10e3/ul Critically high 0.00-0.03 [facility] Comment on above: Performed By: #### C BC ####[facility] Fqnaastaqw[address] [place], [place] [address]DrKianna Tripathi IG % 0.5 % Normal 0.0-0.5 [facility] Comment on above: Performed By: #### C BC ####[facility] Jdktjdpsto[address] [place], [place] [address]DrKianna Tripathi LYMPH # 2.1 103/ul Normal 1.2-3.8 [facility] Comment on above: Performed By: #### C BC ####[facility] Ysetiwaugh[address] [place], [place] [address]DrKianna Tripathi Lymphocytes/100 WBC (Bld) 23.5 % Normal 20.5-60.0 [facility] Comment on above: Performed By: #### C BC ####[facility] Mtgatpmhqk[address] [place], [place] [address]DrKianna Tripathi MANUAL DIFF REQ NO Normal [facility] Comment on above: Performed By: #### C BC ####[facility] Wimahkkqax[address] [place], [place] [address]DrKianna Tripathi MCH (RBC) [Entitic mass] 29.4 pg Normal 26.7-34.0 [facility] Comment on above: Performed By: #### C BC ####[facility] Vbdgibpyed[address] [place], [place] [address]Dr. Airam Tripathi MCHC (RBC) [Mass/Vol] 30.4 g/dL Normal 29.9-35.2 [facility] Comment on above: Performed By: #### C BC ####[facility] Pkpumfckdp7361 [place] [address]Dr. Airam Tripathi MCV (RBC) [Entitic vol] 96.6 fL Normal 81.0-99.0 [facility] Comment on above: Performed By: #### C BC ####[facility] Cffquuotaw[address] [place], [place] [address]Dr. Selenaneil Deuce MONO # 0.6 103/ul Normal 0.3-0.8 [facility] Comment on above: Performed By: #### C BC ####[facility] Vamyfrfqeq24[address] [place], [place] [address]Dr. Airam Tripathi Monocytes/100 WBC (Bld) 6.4 % Normal 1.7-12.0 [facility] Comment on above: Performed By: #### C BC ####[facility] Dbzdshlnug06[address] [place], [place] [address]Dr. Airam Tripathi NEUT # 5.8 103/ul Normal 1.4-6.5 [facility] Comment on above: Performed By: #### C BC ####[facility] Vepjdqyhhj68[address] [place], [place] [address]Dr. Selenaneil Tripathi Neutrophils/100 WBC (Bld) 65.6 % Normal 43.0-75.0 [facility] Comment on above: Performed By: #### C BC ####[facility] Blfkknvmak13[address] [place], [place] [address]Dr. Airam Tripathi Platelet mean volume (Bld) [Entitic vol] 9.2 fL Critically low 9.5-13.5 [facility] Comment on above: Performed By: #### C BC ####[facility] Sbjtqlafvn38[address] [place], [place] [address]Dr. Selenaneil Deuce PLT 338 103/ul Normal 150-450 [facility] Comment on above: Performed By: #### C BC ####[facility] Lnnnrohott[address] [place], [place] [address]Dr. Airam Tripathi RBC 3.54 106/ul Critically low 4.20-5.40 [facility] Comment on above: Performed By: #### C BC ####[facility] Atzqnfpyaa0483 [place] [address]Dr. Airam Tripathi WBC 8.9 103/ul Normal 4.0-11.0 [facility] Comment on above: Performed By: #### C BC ####[facility] Kgjxvtjnsw5876 [place] [address]Dr. Airam Tripathi MG MAMM SCREEN 3D GUMARO CADon 12-30-2021 MG MAMM SCREEN 3D GUMARO CAD Normal [facility] PROF 14(COMP METB)on 022 Albumin [Mass/Vol] 3.6 g/dL Normal 3.4-5.0 [facility] Comment on above: Performed By: #### C MP ####[facility] Wgxcumsvxn[address] [place], [place] [address]Dr. Airam Tripathi Albumin/Globulin [Mass ratio] 1.1 {ratio} Normal [facility] Comment on above: Performed By: #### C MP ####[facility] Wkiaapuopo3588 [place] [address]Dr. Airam Deuce ALP [Catalytic activity/Vol] 117 U/L Critically high 46-116 [facility] Comment on above: Performed By: #### C MP ####[facility] Clworxkbyt[address] [place], [place] [address]Dr. Selenaneil Deuce ALT [Catalytic activity/Vol] 26 U/L Normal 14-59 [facility] Comment on above: Performed By: #### C MP ####[facility] Eqehwfhozn0110 [place] [address]Dr. Airam Tripathi Anion gap [Moles/Vol] 11.2 mmol/L Normal [facility] Comment on above: Performed By: #### C MP ####[facility] Ynqeeubxte5018 [place] [address]Dr. Airam Tripathi AST [Catalytic activity/Vol] 29 U/L Normal 15-37 [facility] Comment on above: Performed By: #### C MP ####[facility] Vcgsqgshzm6[address] [place], [place] [address]Ap. Airam Tripathi Bilirubin [Mass/Vol] 0.3 mg/dL Normal 0.2-1.0 [facility] Comment on above: Performed By: #### C MP ####[facility] Vpwrexxqtg6995 [place], [place] [address]Yp. Airam Tripathi Calcium [Mass/Vol] 9.1 mg/dL Normal 8.5-10.1 [facility] Comment on above: Performed By: #### C MP ####[facility] Adydyopvbi4735 [place] [address]Dr. Airam Tripathi Chloride [Moles/Vol] 101 mmol/L Normal 98-107 [facility] Comment on above: Performed By: #### C MP ####[facility] Odgjnbxpxx3872 [place] [address]Dr. Airam Tripathi CO2 [Moles/Vol] 26.8 mmol/L Normal 21.0-32.0 [facility] Comment on above: Performed By: #### C MP ####[facility] Cabzilaelu7184 [place] [address]Dr. Airam Tripathi Creatinine [Mass/Vol] 1.56 mg/dL Critically high 0.55-1.02 [facility] Comment on above: Performed By: #### C MP ####[facility] Grxsqkuwwj1354 [place] [address]Dr. Airam Tripathi EGFR-AF CYPRIOT 41 mL/min/1.73m2 Critically low >=60 [facility] Comment on above: Performed By: #### C MP ####[facility] Xmwdpnrmrv2704 [place] [address]Dr. Airam Tripathi EGFR-NON AF CYPRIOT 34 mL/min/1.73m2 Critically low >=60 [facility] Comment on above: Performed By: #### C MP ####[facility] Xtyvyhipxw6353 [place] [address]Dr. Airam Tripathi Globulin (S) [Mass/Vol] 3.3 g/dL Normal [facility] Comment on above: Performed By: #### C MP ####[facility] Njkqivszvh9968 [place] [address]Dr. Airam Tripathi Glucose [Mass/Vol] 84 mg/dL Normal 74-106 [facility] Comment on above: Performed By: #### C MP ####[facility] Grwaknzcxa2970 [place] [address]Dr. Airam Tripathi Potassium [Moles/Vol] 5.0 mmol/L Normal 3.5-5.1 [facility] Comment on above: Performed By: #### C MP ####[facility] Axdhiyhhpn5111 [place] [address]Dr. Airam Tripathi Protein [Mass/Vol] 6.9 g/dL Normal 6.4-8.2 [facility] Comment on above: Performed By: #### C MP ####[facility] Smsrevtpxs4875 [place] [address]Dr. Airam Tripathi Sodium [Moles/Vol] 134 mmol/L Critically low 136-145 [facility] Comment on above: Performed By: #### C MP ####[facility] Milosuhbjb[address] [place], [place] [address]Dr. Airam Tripathi Urea nitrogen [Mass/Vol] 28.0 mg/dL Critically high 7.0-18.0 [facility] Comment on above: Performed By: #### C MP ####[facility] Ersikztjdk[address] [place], [place] [address]Dr. Airam Tripathi Urea nitrogen/Creatinine [Mass ratio] 17.9 mg/mg Normal [facility] Comment on above: Performed By: #### C MP ####[facility] Yvaspmvpar0204 [place] [address]Dr. Airam Tripathi OSMOLALITYon 12-24-2021 Osmolality [Osmolality] 287 mosm/kg Normal 275-295 [facility] Comment on above: Performed By: #### O SMO ####[facility] Nmjprribkb25[address] [place], [place] [address]Dr. Airam Tripathi CBC AUTO DIFFon 12-22-2021 BASO # 0.0 103/ul Normal 0.0-0.1 [facility] Comment on above: Performed By: #### C BC ####[facility] [address]qvuixbbi[address] [place], [place] [address]Dr. Airam Tripathi Basophils/100 WBC (Bld) 0.5 % Normal 0.2-2.0 [facility] Comment on above: Performed By: #### C BC ####[facility] Fnsebvmwwc[address] [place], [place] [address]Dr. Airam Tripathi EO # 0.4 103/ul Normal 0.0-0.7 [facility] Comment on above: Performed By: #### C BC ####[facility] Fosnnahyzy[address] [place], [place] [address]Dr. Airam Tripathi Eosinophils/100 WBC (Bld) 6.4 % Normal 0.9-7.0 [facility] Comment on above: Performed By: #### C BC ####[facility] Oloysoytsr[address] [place], [place] [address]Dr. Airam Tripathi Erythrocyte distribution width (RBC) [Ratio] 13.2 % Normal 11.0-15.0 [facility] Comment on above: Performed By: #### C BC ####[facility] Hdyizdygfn79[address] [place], [place] [address]Dr. Airam Tripathi Hematocrit (Bld) [Volume fraction] 32.2 % Critically low 36.0-48.0 [facility] Comment on above: Performed By: #### C BC ####[facility] Kukwmueedq6[address] [place], [place] [address]Dr. Airam Tripathi Hemoglobin (Bld) [Mass/Vol] 10.1 g/dL Critically low 12.0-16.0 [facility] Comment on above: Performed By: #### C BC ####[facility] Wrhbjuocss[address] [place], [place] [address]Dr. Airam Tripathi IG # 0.03 10e3/ul Normal 0.00-0.03 [facility] Comment on above: Performed By: #### C BC ####[facility] Lxpbhzdpgg364[address] [place], [place] [address]Dr. Airam Tripathi IG % 0.5 % Normal 0.0-0.5 [facility] Comment on above: Performed By: #### C BC ####[facility] Yakumunsod5165 [place] [address]Dr. Airam Tripathi LYMPH # 1.3 103/ul Normal 1.2-3.8 [facility] Comment on above: Performed By: #### C BC ####[facility] Nvpiizofat9815 [place] [address]Dr. Airam Deuce Lymphocytes/100 WBC (Bld) 20.5 % Normal 20.5-60.0 [facility] Comment on above: Performed By: #### C BC ####[facility] Vtetpbamuz7673 [place] [address]Dr. Selenaneil Tripathi MANUAL DIFF REQ NO Normal [facility] Comment on above: Performed By: #### C BC ####[facility] Aqknualnaq4[address] [place], [place] [address]Dr. Airam Deuce MCH (RBC) [Entitic mass] 30.1 pg Normal 26.7-34.0 [facility] Comment on above: Performed By: #### C BC ####[facility] Tvkiqgyijx380[address] [place], [place] [address]Dr. Airam Tripathi MCHC (RBC) [Mass/Vol] 31.4 g/dL Normal 29.9-35.2 [facility] Comment on above: Performed By: #### C BC ####[facility] Owdmqyhbyc7571 [place] [address]Dr. Selenaneil Tripathi MCV (RBC) [Entitic vol] 95.8 fL Normal 81.0-99.0 [facility] Comment on above: Performed By: #### C BC ####[facility] Ylskycuhce[address] [place], [place] [address]Dr. Airam Deuce MONO # 0.5 103/ul Normal 0.3-0.8 [facility] Comment on above: Performed By: #### C BC ####[facility] Llfycvgdci0406 [place] [address]Dr. Selenaneil Tripathi Monocytes/100 WBC (Bld) 7.4 % Normal 1.7-12.0 [facility] Comment on above: Performed By: #### C BC ####[facility] Lndbtgpbvw6385 [place] [address]Dr. Airam Tripathi NEUT # 3.9 103/ul Normal 1.4-6.5 [facility] Comment on above: Performed By: #### C BC ####[facility] Gpaupiqmdm3402 [place] [address]Dr. Airam Tripathi Neutrophils/100 WBC (Bld) 64.7 % Normal 43.0-75.0 [facility] Comment on above: Performed By: #### C BC ####[facility] Xqppzoirzd6972 [place] [address]Dr. Airam Tripathi Platelet mean volume (Bld) [Entitic vol] 9.2 fL Critically low 9.5-13.5 [facility] Comment on above: Performed By: #### C BC ####[facility] Syrvaabjxp[address] [place], [place] [address]Dr. Airam Tripathi PLT 309 103/ul Normal 150-450 [facility] Comment on above: Performed By: #### C BC ####[facility] Cjmcirgkpi[address] [place], [place] [address]Dr. Airam Tripathi RBC 3.36 106/ul Critically low 4.20-5.40 [facility] Comment on above: Performed By: #### C BC ####[facility] Yncpavoveo364[address] [place], [place] [address]Dr. Airam Tripathi WBC 6.1 103/ul Normal 4.0-11.0 [facility] Comment on above: Performed By: #### C BC ####[facility] Ftvrgxwizq230[address] [place], [place] [address]Dr. Airam Tripathi PROF 14(COMP METB)on 022 Albumin [Mass/Vol] 3.2 g/dL Critically low 3.4-5.0 [facility] Comment on above: Performed By: #### C MP ####[facility] Vtrfokvcpm[address] [place], [place] [address]Dr. Selenaneil Deuce Albumin/Globulin [Mass ratio] 1.1 {ratio} Normal [facility] Comment on above: Performed By: #### C MP ####[facility] Rvlbamobtk0873 [place] [id number]. Airam Tripathi ALP [Catalytic activity/Vol] 123 U/L Critically high 46-116 [facility] Comment on above: Performed By: #### C MP ####[facility] Cvwlbtwfir2622 [place] [address]Dr. Airam Tripathi ALT [Catalytic activity/Vol] 26 U/L Normal 14-59 [facility] Comment on above: Performed By: #### C MP ####[facility] Ncscpquoiq4293 [place] [address]Dr. Airam Tripathi Anion gap [Moles/Vol] 14.5 mmol/L Normal [facility] Comment on above: Performed By: #### C MP ####[facility] Dpawcowaua[address] [place], [place] [address]Dr. Airam Tripathi AST [Catalytic activity/Vol] 23 U/L Normal 15-37 [facility] Comment on above: Performed By: #### C MP ####[facility] Vlyukhfbml0520 [place] [address]Dr. Airam Tripathi Bilirubin [Mass/Vol] 0.3 mg/dL Normal 0.2-1.0 [facility] Comment on above: Performed By: #### C MP ####[facility] Rqxnbwpmcp[address] [place], [place] [address]Dr. Airam Tripathi Calcium [Mass/Vol] 8.2 mg/dL Critically low 8.5-10.1 [facility] Comment on above: Performed By: #### C MP ####[facility] Dgdqxpvxjc64[address] [place], [place] [address]Dr. Airam Tripathi Chloride [Moles/Vol] 102 mmol/L Normal 98-107 [facility] Comment on above: Performed By: #### C MP ####[facility] Qirvjmgmkm64[address] [place], [place] [address]Dr. Airam Tripathi CO2 [Moles/Vol] 23.2 mmol/L Normal 21.0-32.0 [facility] Comment on above: Performed By: #### C MP ####[facility] Qjgixxxulw8224 [place] [address]Dr. Airam Tripathi Creatinine [Mass/Vol] 1.98 mg/dL Critically high 0.55-1.02 [facility] Comment on above: Performed By: #### C MP ####[facility] Smnpfgyeoq0553 [place] [address]Dr. Airam Tripathi EGFR-AF CYPRIOT 31 mL/min/1.73m2 Critically low >=60 [facility] Comment on above: Performed By: #### C MP ####[facility] Qtzbptrkay1384 [place] [address]Dr. Airam Tripathi EGFR-NON AF CYPRIOT 26 mL/min/1.73m2 Critically low >=60 [facility] Comment on above: Performed By: #### C MP ####[facility] Bkrkedzomx2139 [place] [address]Dr. Airam Tripathi Globulin (S) [Mass/Vol] 3.0 g/dL Normal [facility] Comment on above: Performed By: #### C MP ####[facility] Vwlvrtkdmg3694 [place] [address]Dr. Airam Tripathi Glucose [Mass/Vol] 131 mg/dL Critically high 74-106 [facility] Comment on above: Performed By: #### C MP ####[facility] Ngwehzejaa5246 [place] [address]Dr. Airam Tripathi Potassium [Moles/Vol] 4.7 mmol/L Normal 3.5-5.1 [facility] Comment on above: Performed By: #### C MP ####[facility] Pooygiuncb4285 [place] [address]Dr. Airam Tripathi Protein [Mass/Vol] 6.2 g/dL Critically low 6.4-8.2 [facility] Comment on above: Performed By: #### C MP ####[facility] Eqjohyskkx2135 [place] [address]Dr. Airam Tripathi Sodium [Moles/Vol] 135 mmol/L Critically low 136-145 [facility] Comment on above: Performed By: #### C MP ####[facility] Gfjdbwutne6204 [place] [address]Dr. Airam Tripathi Urea nitrogen [Mass/Vol] 37.0 mg/dL Critically high 7.0-18.0 [facility] Comment on above: Performed By: #### C MP ####[facility] Ngbhxmyxec[address] [place], [place] [address]Dr. Airam Tripathi Urea nitrogen/Creatinine [Mass ratio] 18.7 mg/mg Normal [facility] Comment on above: Performed By: #### C MP ####[facility] Lcopbkzysz[address] [place], [place] [address]Dr. Airam Tripathi OSMOLALITYon 12-18-2021 Osmolality [Osmolality] 271 mosm/kg Critically low 275-295 [facility] Comment on above: Performed By: #### O SMO ####[facility] Nttukqfqdq[address] [place], [place] [address]Dr. Airam Tripathi CBC AUTO DIFFon 12-16-2021 BASO # 0.0 103/ul Normal 0.0-0.1 [facility] Comment on above: Performed By: #### C BC ####[facility] Lmuupvkygf9[address] [place], [place] [address]Dr. Airam Tripathi Basophils/100 WBC (Bld) 0.6 % Normal 0.2-2.0 [facility] Comment on above: Performed By: #### C BC ####[facility] Jfclafwbat[address] [place], [place] [address]Dr. Airam Tripathi EO # 0.1 103/ul Normal 0.0-0.7 [facility] Comment on above: Performed By: #### C BC ####[facility] Szottfghfu[address] [place], [place] [address]Dr. Airam Tripathi Eosinophils/100 WBC (Bld) 2.1 % Normal 0.9-7.0 [facility] Comment on above: Performed By: #### C BC ####[facility] W[address]obrwnhml[address] [place], [place] [address]Dr. Airam Tripathi Erythrocyte distribution width (RBC) [Ratio] 13.1 % Normal 11.0-15.0 [facility] Comment on above: Performed By: #### C BC ####[facility] Gqmxxqefiu2902 [place] [address]DrKianna Airam Tripathi Hematocrit (Bld) [Volume fraction] 33.8 % Critically low 36.0-48.0 [facility] Comment on above: Performed By: #### C BC ####[facility] Ppjfabifpy4563 [place] [address]DrKianna Tripathi Hemoglobin (Bld) [Mass/Vol] 10.7 g/dL Critically low 12.0-16.0 [facility] Comment on above: Performed By: #### C BC ####[facility] Cliyxodlxl[address] [place], [place] [address]DrKianna Tripathi IG # 0.02 10e3/ul Normal 0.00-0.03 [facility] Comment on above: Performed By: #### C BC ####[facility] Rqoibbiwcn[address] [place], [place] [address]DrKianna Tripathi IG % 0.3 % Normal 0.0-0.5 [facility] Comment on above: Performed By: #### C BC ####[facility] Rpzhselfqw[address] [place], [place] [address]DrKianna Tripathi LYMPH # 1.2 103/ul Normal 1.2-3.8 [facility] Comment on above: Performed By: #### C BC ####[facility] [address] [place], [place] [address]DrKianna Tripathi Lymphocytes/100 WBC (Bld) 17.3 % Critically low 20.5-60.0 [facility] Comment on above: Performed By: #### C BC ####[facility] Admglztunz[address] [place], [place] [address]DrKianna Tripathi MANUAL DIFF REQ NO Normal [facility] Comment on above: Performed By: #### C BC ####[facility] Nehegrsyij[address] [place], [place] [address]DrKianna Tripathi MCH (RBC) [Entitic mass] 30.2 pg Normal 26.7-34.0 [facility] Comment on above: Performed By: #### C BC ####[facility] Npjidwzkao65[address] [place] [id number]. Airam Deuce MCHC (RBC) [Mass/Vol] 31.7 g/dL Normal 29.9-35.2 [facility] Comment on above: Performed By: #### C BC ####[facility] Yjvpkcakja8584 [place] [id number] Tripathi MCV (RBC) [Entitic vol] 95.5 fL Normal 81.0-99.0 [facility] Comment on above: Performed By: #### C BC ####[facility] Mbggfxmmxz[address] [place], [place] [address]DrKianna Tripathi MONO # 0.5 103/ul Normal 0.3-0.8 [facility] Comment on above: Performed By: #### C BC ####[facility] Lfpzcfleia[address] [place], [place] [address]Dr. Airam Tripathi Monocytes/100 WBC (Bld) 6.8 % Normal 1.7-12.0 [facility] Comment on above: Performed By: #### C BC ####[facility] Opunhfoytl[address] [place], [place] [address]DrKianna Tripathi NEUT # 4.9 103/ul Normal 1.4-6.5 [facility] Comment on above: Performed By: #### C BC ####[facility] Kcnarnpqor6[address] [place], [place] [address]DrKianna Tripathi Neutrophils/100 WBC (Bld) 72.9 % Normal 43.0-75.0 [facility] Comment on above: Performed By: #### C BC ####[facility] [address] [place], [place] [id number] Tripathi Platelet mean volume (Bld) [Entitic vol] 9.0 fL Critically low 9.5-13.5 [facility] Comment on above: Performed By: #### C BC ####[facility] Srpxudxtfu[address] [place], [place] [address]DrKianna Tripathi PLT 297 103/ul Normal 150-450 [facility] Comment on above: Performed By: #### C BC ####[facility] Jepbbqettr57[address] [place] [id number]. Airam Tripathi RBC 3.54 106/ul Critically low 4.20-5.40 [facility] Comment on above: Performed By: #### C BC ####[facility] Eomgvbsbck5899 [place] [id number]. Airam Tripathi WBC 6.8 103/ul Normal 4.0-11.0 [facility] Comment on above: Performed By: #### C BC ####[facility] Kbrhrwkimc4[address] [place] [address]Dr. Airam Tripathi PROF 14(COMP METB)on 022 Albumin [Mass/Vol] 3.2 g/dL Critically low 3.4-5.0 [facility] Comment on above: Performed By: #### C MP ####[facility] Xxrjmguuuu[address] [place], [place] [address]Dr. Airam Tripathi Albumin/Globulin [Mass ratio] 1.0 {ratio} Normal [facility] Comment on above: Performed By: #### C MP ####[facility] Abjbshwvor[address] [place], [place] [address]Dr. Airam Tripathi ALP [Catalytic activity/Vol] 109 U/L Normal 46-116 [facility] Comment on above: Performed By: #### C MP ####[facility] Hhcnbodjne4[address] [place] [address]Dr. Airam Tripathi ALT [Catalytic activity/Vol] 23 U/L Normal 14-59 [facility] Comment on above: Performed By: #### C MP ####[facility] Opfrrbgnia8326 [place] [address]Dr. Airam Tripathi Anion gap [Moles/Vol] 11.6 mmol/L Normal [facility] Comment on above: Performed By: #### C MP ####[facility] Irbthblbsc84[address] [place] [address]Dr. Airam Tripathi AST [Catalytic activity/Vol] 24 U/L Normal 15-37 [facility] Comment on above: Performed By: #### C MP ####[facility] Ybtybetvqw2990 [place] [id number]. Airam Tripathi Bilirubin [Mass/Vol] 0.2 mg/dL Normal 0.2-1.0 [facility] Comment on above: Performed By: #### C MP ####[facility] [address]fikcmjbvm[address] [place] [id number]. Airam Tripathi Calcium [Mass/Vol] 8.6 mg/dL Normal 8.5-10.1 [facility] Comment on above: Performed By: #### C MP ####[facility] Xadhpiszca[address] [place] [address]Dr. Airam Tripathi Chloride [Moles/Vol] 100 mmol/L Normal 98-107 [facility] Comment on above: Performed By: #### C MP ####[facility] Nnkjmpaflj[address] [place], [place] [address]Dr. Airam Tripathi CO2 [Moles/Vol] 24.7 mmol/L Normal 21.0-32.0 [facility] Comment on above: Performed By: #### C MP ####[facility] Xwodsxrhbb6[address] [place], [place] [address]Dr. Airam Tripathi Creatinine [Mass/Vol] 1.11 mg/dL Critically high 0.55-1.02 [facility] Comment on above: Performed By: #### C MP ####[facility] Ctprlnqwgc[address] [place], [place] [address]Dr. Airam Tripathi EGFR-AF CYPRIOT >60 Normal >=60 [facility] Comment on above: Performed By: #### C MP ####[facility] Vcurctrh[address] [place], [place] [id number]. Airam Tripathi EGFR-NON AF CYPRIOT 50 mL/min/1.73m2 Critically low >=60 [facility] Comment on above: Performed By: #### C MP ####[facility] Exkifguigk55[address] [place] [id number]. Airam Tripathi Globulin (S) [Mass/Vol] 3.1 g/dL Normal [facility] Comment on above: Performed By: #### C MP ####[facility] Hlbmpwhxkh15[address] [place] [id number]. Airam Tripathi Glucose [Mass/Vol] 79 mg/dL Normal 74-106 [facility] Comment on above: Performed By: #### C MP ####[facility] Ylavhnrjgi2554 [place] [address]Dr. Airam Tripathi Potassium [Moles/Vol] 5.3 mmol/L Critically high 3.5-5.1 [facility] Comment on above: Performed By: #### C MP ####[facility] Pvhsdtroge6[address] [place] [address]Dr. Airam Tripathi Protein [Mass/Vol] 6.3 g/dL Critically low 6.4-8.2 [facility] Comment on above: Performed By: #### C MP ####[facility] Oxylthzefg[address] [place], [place] [address]Dr. Airam Tripathi Sodium [Moles/Vol] 131 mmol/L Critically low 136-145 Th [facility] Comment on above: Performed By: #### C MP ####[facility] Ehmlznjybh84[address] [place], [place] [address]Dr. Airam Tripathi Urea nitrogen [Mass/Vol] 20.0 mg/dL Critically high 7.0-18.0 [facility] Comment on above: Performed By: #### C MP ####[facility] Rcmbqxnzjz[address] [place], [place] [address]Dr. Airam Tripathi Urea nitrogen/Creatinine [Mass ratio] 18.0 mg/mg Normal [facility] Comment on above: Performed By: #### C MP ####[facility] Owckhjqppp[address] [place], [place] [address]Dr. Airam Tripathi OSMOLALITYon 12-09-2021 Osmolality [Osmolality] 279 mosm/kg Normal 275-295 [facility] Comment on above: Performed By: #### O SMO ####[facility] Eouuwowecm[address] [place], [place] [address]Dr. Airam Tripathi CBC AUTO DIFFon 12-07-2021 BASO # 0.0 103/ul Normal 0.0-0.1 [facility] Comment on above: Performed By: #### C BC ####[facility] Wuujmqdzyk1804 [place] [id number]. Airam Tripathi Basophils/100 WBC (Bld) 0.5 % Normal 0.2-2.0 [facility] Comment on above: Performed By: #### C BC ####[facility] [address]amkrjryb[address] [place], [place] [address]Dr. Airam Tripathi EO # 0.4 103/ul Normal 0.0-0.7 [facility] Comment on above: Performed By: #### C BC ####[facility] Bqncdhy[address] [place], [place] [address]Dr. Airam Tripathi Eosinophils/100 WBC (Bld) 6.3 % Normal 0.9-7.0 [facility] Comment on above: Performed By: #### C BC ####[facility] Ljcmdnquep[address] [place], [place] [address]Dr. Airam Tripathi Erythrocyte distribution width (RBC) [Ratio] 13.3 % Normal 11.0-15.0 [facility] Comment on above: Performed By: #### C BC ####[facility] Eujufysesk[address] [place], [place] [address]Dr. Airam Tripathi Hematocrit (Bld) [Volume fraction] 29.5 % Critically low 36.0-48.0 [facility] Comment on above: Performed By: #### C BC ####[facility] Udbxgjgdvq[address] [place], [place] [address]Dr. Airam Tripathi Hemoglobin (Bld) [Mass/Vol] 9.1 g/dL Critically low 12.0-16.0 [facility] Comment on above: Performed By: #### C BC ####[facility] Nlnfokyrsc[address] [place], [place] [address]Dr. Airam Tripathi IG # 0.04 10e3/ul Critically high 0.00-0.03 [facility] Comment on above: Performed By: #### C BC ####[facility] Uhtenohbrk[address] [place], [place] [address]Dr. Airam Tripathi IG % 0.7 % Critically high 0.0-0.5 [facility] Comment on above: Performed By: #### C BC ####[facility] F[address]ztzhunkd[address] [place] [address]Dr. Airam Tripathi LYMPH # 1.3 103/ul Normal 1.2-3.8 [facility] Comment on above: Performed By: #### C BC ####[facility] Qhcezlbzvt9939 [place] [id number]. Airam Tripathi Lymphocytes/100 WBC (Bld) 20.9 % Normal 20.5-60.0 [facility] Comment on above: Performed By: #### C BC ####[facility] Uhnsotxijg036[address] [place] [address]Dr. Airam Tripathi MANUAL DIFF REQ NO Normal [facility] Comment on above: Performed By: #### C BC ####[facility] Gwsnxjftfu2532 [place] [address]Dr. Airam Tripathi MCH (RBC) [Entitic mass] 30.1 pg Normal 26.7-34.0 [facility] Comment on above: Performed By: #### C BC ####[facility] Mppxatxjqi10[address] [place] [address]Dr. Airam Tripathi MCHC (RBC) [Mass/Vol] 30.8 g/dL Normal 29.9-35.2 [facility] Comment on above: Performed By: #### C BC ####[facility] Aigzzbeltq[address] [place], [place] [address]Dr. Airam Tripathi MCV (RBC) [Entitic vol] 97.7 fL Normal 81.0-99.0 [facility] Comment on above: Performed By: #### C BC ####[facility] Ceyjrwvlow[address] [place], [place] [address]DrKianna Tripathi MONO # 0.4 103/ul Normal 0.3-0.8 [facility] Comment on above: Performed By: #### C BC ####[facility] Lyzhqlfslx7[address] [place] [address]Dr. Airam Tripathi Monocytes/100 WBC (Bld) 6.6 % Normal 1.7-12.0 [facility] Comment on above: Performed By: #### C BC ####[facility] Xorvswqcgr7361 [place] [address]Dr. Airam Tripathi NEUT # 4.0 103/ul Normal 1.4-6.5 [facility] Comment on above: Performed By: #### C BC ####[facility] Gtohxcegvy7319 [place] [address]DrKianna Tripathi Neutrophils/100 WBC (Bld) 65.0 % Normal 43.0-75.0 [facility] Comment on above: Performed By: #### C BC ####[facility] Eboygmkiyy1886 [place] [phone]. Airam Tripathi Platelet mean volume (Bld) [Entitic vol] 9.4 fL Critically low 9.5-13.5 [facility] Comment on above: Performed By: #### C BC ####[facility] Tsambzaqjy[address] [place] [address]Dr. Airam Tripathi PLT 224 103/ul Normal 150-450 [facility] Comment on above: Performed By: #### C BC ####[facility] Yruxonsqpe2529 [place] [address]Dr. Airam Tripathi RBC 3.02 106/ul Critically low 4.20-5.40 [facility] Comment on above: Performed By: #### C BC ####[facility] Vkykltezqp0697 [place] [address]Dr. Airam Tripathi WBC 6.1 103/ul Normal 4.0-11.0 [facility] Comment on above: Performed By: #### C BC ####[facility] Imoiagabkf1123 [place] [address]DrKianna Tripathi PROF 14(COMP METB)on 022 Albumin [Mass/Vol] 2.8 g/dL Critically low 3.4-5.0 [facility] Comment on above: Performed By: #### C MP ####[facility] Tiklxyiuni9362 [place] [address]DrKianna Tripathi Albumin/Globulin [Mass ratio] 1.1 {ratio} Normal [facility] Comment on above: Performed By: #### C MP ####[facility] Buiubialxr3[address] [place] [address]Dr. Airam Tripathi ALP [Catalytic activity/Vol] 116 U/L Normal 46-116 [facility] Comment on above: Performed By: #### C MP ####[facility] Lznmtwcjgp0568 [place] [address]Dr. Airam Deuce ALT [Catalytic activity/Vol] 23 U/L Normal 14-59 [facility] Comment on above: Performed By: #### C MP ####[facility] Zqvogwicyn5696 [place] [address]Dr. Airam Tripathi Anion gap [Moles/Vol] 12.1 mmol/L Normal [facility] Comment on above: Performed By: #### C MP ####[facility] Xnpnziznic[address] [place], [place] [address]Dr. Selenaneil Tripathi AST [Catalytic activity/Vol] 23 U/L Normal 15-37 [facility] Comment on above: Performed By: #### C MP ####[facility] Whltkoxzli[address] [place], [place] [address]Dr. Selenaneil Deuce Bilirubin [Mass/Vol] 0.2 mg/dL Normal 0.2-1.0 [facility] Comment on above: Performed By: #### C MP ####[facility] Cddtfyeqlt[address] [place], [place] [address]Dr. Airam Tripathi Calcium [Mass/Vol] 8.1 mg/dL Critically low 8.5-10.1 [facility] Comment on above: Performed By: #### C MP ####[facility] Llcxwtanqw9523 [place] [address]Dr. Airam Tripathi Chloride [Moles/Vol] 105 mmol/L Normal 98-107 [facility] Comment on above: Performed By: #### C MP ####[facility] Iyrantzprk8969 [place] [address]Dr. Airam Tripathi CO2 [Moles/Vol] 22.1 mmol/L Normal 21.0-32.0 [facility] Comment on above: Performed By: #### C MP ####[facility] Bgepxpchwq0429 [place] [id number]. Airam Tripathi Creatinine [Mass/Vol] 1.06 mg/dL Critically high 0.55-1.02 [facility] Comment on above: Performed By: #### C MP ####[facility] Uwbpityyrs3469 [place] [phone]. Airam Tripathi EGFR-AF CYPRIOT >60 Normal >=60 [facility] Comment on above: Performed By: #### C MP ####[facility] Ayzcolfxmd3553 [place] [id number]. Airam Tripathi EGFR-NON AF CYPRIOT 53 mL/min/1.73m2 Critically low >=60 [facility] Comment on above: Performed By: #### C MP ####[facility] Rkrppsdnfi6[address] [place], [place] [address]Dr. Airam Tripathi Globulin (S) [Mass/Vol] 2.6 g/dL Normal [facility] Comment on above: Performed By: #### C MP ####[facility] Ofmobdjfai6[address] [place], [place] [address]Dr. Airam Tripathi Glucose [Mass/Vol] 109 mg/dL Critically high 74-106 [facility] Comment on above: Performed By: #### C MP ####[facility] Uosprqjelx5080 [place] [address]Dr. Airam Tripathi Potassium [Moles/Vol] 4.2 mmol/L Normal 3.5-5.1 [facility] Comment on above: Performed By: #### C MP ####[facility] Zrgsyaddwf[address] [place], [place] [address]Dr. Airam Tripathi Protein [Mass/Vol] 5.4 g/dL Critically low 6.4-8.2 Th [facility] Comment on above: Performed By: #### C MP ####[facility] Amazbezekj5[address] [place], [place] [address]Dr. Airam Tripathi Sodium [Moles/Vol] 135 mmol/L Critically low 136-145 Th [facility] Comment on above: Performed By: #### C MP ####[facility] Nfcthfzqcn4838 [place], [place] [address]Vm. Airam Tripathi Urea nitrogen [Mass/Vol] 15.0 mg/dL Normal 7.0-18.0 [facility] Comment on above: Performed By: #### C MP ####[facility] Srzsncilzd7352 [place], [place] [address]Sy. Airam Tripathi Urea nitrogen/Creatinine [Mass ratio] 14.2 mg/mg Normal [facility] Comment on above: Performed By: #### C MP ####[facility] Xsfxjvhopy2269 [place], [place] [address]Um. Airam Tripathi Operative Reporton Operative Report MR#: [id number] S [facility] Pt. Name: Mabel Moser Room #: [...] subscapularis. 3. Right shoulder proximal biceps tenotomy. SOFTWARE PACKAGER: Alex Serra M.D. ANESTHESIA: General. INDICATIONS: The [...] Reza M.D. Date Trans: 08/19/2021 11:37 A/carter [id number] cc: Angle Santana M.D. [address] [place] [address] Normal [facility] POC GLUCOSE LABon 08-19-2021 Glucose [Mass/Vol] 77 mg/dL Normal 70-100 [facility] Comment on above: Performed By: #### [id number] #### [facility] [address] 04-05-2021 CNPN Telephone (HEMASA) ----- MABEL MOSER ([id number]) 1960 F Date Time Provider Department 04/05/21 YEVGENIY FORD During your visit today, we recorded the following information about you: Chana Gallegos [facility] 04/05/2021 7:57 AM Signed Records faxed to the cancer center at [facility]. Patient to follow with Dr. Liu. Release [...] Status:Closed by CHANA LEE on 04/05/21 Normal [facility] OBSOLETEon 01-11-2021 OBSOLETE Refill (HEMASA) ----- MABEL MOSER ([id number]) 1960 F Date Time Provider Department 01/11/21 [...] stage 3, GFR 30-59 ml/min ([facility]) [N18.30] Order(s):cyanocobalamin 1,000 mcg/mLINJECT 1 ML INTRAMUSCULARLY [...] Status:Closed by YEVGENIY FORD on 01/12/21 Normal [facility] Vital Signs Date Time Vital Sign Value Performing Clinician Facility 07-03-2023 12:00-0500 Body temperature 97.9 [degF] MD Angle Santana Work Phone: [facility] 07-03-2023 12:00-0500 Diastolic blood pressure 71 mm[Hg] MD Angle Santana Work Phone: [facility] 07-03-2023 12:00-0500 Heart rate 68 /min MD Angle Santana Work Phone: [facility] 07-03-2023 12:00-0500 Respiratory rate 16 /min MD Angle Santana Work Phone: [facility] 07-03-2023 12:00-0500 SaO2% (BldA) [Mass fraction] 100 % Angle Esther Work Phone: [facility] 07-03-2023 12:00-0500 Systolic blood pressure 121 mm[Hg] MD Angle Santana Work Phone: [facility] 07-03-2023 04:49-0500 Body weight 85.8 kg MD Angle Santana Work Phone: [facility] 06-30-2023 14:44-0500 Body height 157.48 cm MD Angle Santana Work Phone: [facility] 04-04-2023 16:20-0400 Body height 158.75 cm Raeann Hairbobo Other [employer] Other 04-04-2023 16:20-0400 Body mass index (BMI) [Ratio] 31.46 kg/m2 Sportsyariel Hairbobo Other [employer] Other 04-04-2023 16:20-0400 Body temperature 98 [degF] Raeann Hairbobo Other [employer] Other 04-04-2023 16:20-0400 Body weight 79.29 kg Sportsyariel Hairbobo Other [employer] Other 04-04-2023 16:20-0400 Diastolic blood pressure 81 mm[Hg] Sportsyariel Hairbobo Other [employer] Other 04-04-2023 16:20-0400 Respiratory rate 18 /min Sportsyariel Hairbobo Other [employer] Other 04-04-2023 16:20-0400 SaO2% (BldA) [Mass fraction] 98 % Raeann Kirkpatrick Other [facility] [employer] Other 04-04-2023 16:20-0400 Systolic blood pressure 133 mm[Hg] Raeann Kirkpatrick Other [facility] [employer] Other 10-28-2022 22:23-0400 Body temperature 97.4 [degF] MD Angle Santana Work Phone: [facility] 10-28-2022 22:00-0400 Diastolic blood pressure 74 mm[Hg] MD Angle Santana Work Phone: [facility] 10-28-2022 22:00-0400 Heart rate 72 /min MD Angle Santana Work Phone: [facility] 10-28-2022 22:00-0400 Respiratory rate 20 /min MD Angle Santana Work Phone: [facility] 10-28-2022 22:00-0400 SaO2% (BldA) [Mass fraction] 97 % MD Angle Santana Work Phone: [facility] 10-28-2022 22:00-0400 Systolic blood pressure 169 mm[Hg] MD Angle Santana Work Phone: [facility] 10-28-2022 17:54-0400 Body height 157.48 cm MD Angle Santana Work Phone: [facility] 10-28-2022 17:54-0400 Body weight 83.7 kg MD Angle Santana Work Phone: [facility] 09-27-2022 12:00-0400 Body height 158.75 cm Raeann Mishrajohnnie Other [employer] [facility] [employer] Other 09-27-2022 12:00-0400 Body mass index (BMI) [Ratio] 31.78 kg/m2 Raeann Kirkpatrick Other [employer] [facility] [employer] Other 09-27-2022 12:00-0400 Body temperature 96.1 [degF] Aziz Bakkendalls Other [employer] Other 09-27-2022 12:00-0400 Body weight 80.11 kg Azariel Bakhous Other [employer] Other 09-27-2022 12:00-0400 Diastolic blood pressure 82 mm[Hg] Aziz Bakhous Other [employer] Other 09-27-2022 12:00-0400 Respiratory rate 18 /min Raeann Bakhous Other [employer] Other 09-27-2022 12:00-0400 SaO2% (BldA) [Mass fraction] 99 % Azariel Bakhous Other [employer] Other 09-27-2022 12:00-0400 Systolic blood pressure 140 mm[Hg] Aziz Bakhous Other [employer] Other 04-12-2022 14:00-0400 Body height 158.75 cm Azariel Bakhous Other [employer] Other 04-12-2022 14:00-0400 Body mass index (BMI) [Ratio] 30.13 kg/m2 Azariel Bakhous Other [employer] Other 04-12-2022 14:00-0400 Body temperature 97.6 [degF] Aziz Bakhous Other [employer] Other 04-12-2022 14:00-0400 Body weight 75.93 kg Aziz Bakhous Other [employer] Other 04-12-2022 14:00-0400 Diastolic blood pressure 95 mm[Hg] Raeann Kirkpatrick Other [employer] Other 04-12-2022 14:00-0400 Respiratory rate 18 /min Raeann Kirkpatrick Other [employer] Other 04-12-2022 14:00-0400 SaO2% (BldA) [Mass fraction] 98 % Raeann Kirkpatrick Other [employer] Other 04-12-2022 14:00-0400 Systolic blood pressure 175 mm[Hg] Raeann Kirkpatrick Other [employer] Other 06-16-2021 16:20-0500 Body height 158.75 cm Los Grissom Other [employer] Other 06-16-2021 16:20-0500 Body mass index (BMI) [Ratio] 30.88 kg/m2 Los Rascongerald Other [employer] Other 06-16-2021 16:20-0500 Body temperature 96.4 [degF] Los Rascongerald Other [employer] Other 06-16-2021 16:20-0500 Body weight 77.84 kg Los Rascongerald Other [employer] Other 06-16-2021 16:20-0500 Diastolic blood pressure 88 mm[Hg] Los Rascongerald Other [employer] Other 06-16-2021 16:20-0500 Respiratory rate 18 /min oLs Grissom Other [employer] Other 06-16-2021 16:20-0500 SaO2% (BldA) [Mass fraction] 99 % Los Grissom Other [employer] Other 06-16-2021 16:20-0500 Systolic blood pressure 137 mm[Hg] Los Grissom Other [employer] Other Encounters Encounter Date Encounter Type Care Provider Facility Start: 10-13-2023 ambulatory ANGLE [facility] Start: 09-30-2023 End: 10-01-2023 Evaluation and management of inpatient BALJINDER Pierre [facility] Start: 08-16-2023 End: 08-16-[address] [facility] Start: 08-01-2023 Evaluation and management of inpatient [facility] Start: 08-01-2023 Evaluation and management of inpatient [facility] Start: 07-31-2023 Evaluation and management of inpatient [facility] Start: 07-31-2023 Evaluation and management of inpatient [facility] Start: 07-31-2023 Evaluation and management of inpatient JUDAH QUIROZ [facility] Start: 07-28-2023 Evaluation and management of inpatient RACHEL NOEL [facility] Start: 07-28-2023 End: 08-03-2023 Evaluation and management of inpatient ANGLE Kristen [facility] Start: 07-13-2023 ambulatory BENJIE Santos [facility] Start: 07-11-2023 End: 07-11-2023 ambulatory Raeann Kirkpatrick Other [employer] Other Start: 07-11-2023 Telephone encounter Aziz Bakhous [facility] Start: 06-29-2023 End: 07-03-2023 Evaluation and management of inpatient Jimfior Randhawa Facility:[facility] Start: 06-29-2023 End: 07-03-2023 Evaluation and management of inpatient MD Angle Santana Work Phone: [facility] Work Phone: Start: 04-04-2023 End: 04-04-2023 ambulatory Aziz Bakhous Other [facility] Other Start: 04-04-2023 Office outpatient visit 25 minutes Aziz Bakhous [facility] Start: 04-03-2023 End: 04-03-2023 ambulatory Aziz Bakhous Other [facility] Other Start: 04-03-2023 Telephone encounter Aziz Bakhous [facility] Start: 02-22-2023 End: 02-22-2023 ambulatory RHIANNON [facility] Start: 02-16-2023 ambulatory DUNCAN DENNIS [facility] Start: 01-13-2023 End: 01-14-2023 ambulatory SHERLY [facility] Start: 12-15-2022 End: 12-16-2022 ambulatory [facility] Start: 12-12-2022 End: 12-12-2022 ambulatory Aziz Bakhous Other [facility] Other Start: 12-12-2022 Telephone encounter Aziz Bakhous [facility] Start: 12-08-2022 End: 12-08-2022 ambulatory Aziz Bakhous Other [facility] Other Start: 12-08-2022 Telephone encounter Aziz Bakhous [facility] Start: 11-30-2022 End: 11-30-2022 ambulatory [facility] Start: 11-22-2022 End: 11-22-[address] ANGLE SANTANA . Facility:[facility] Start: 11-22-2022 End: 11-22-2022 ambulatory SADIE PHOENIXMIPATHY . Facility:[facility] Start: 11-16-2022 End: 11-16-[address] ANGLE SANTANA . Facility:[facility] Start: 11-07-2022 End: 11-07-2022 ambulatory BENJIE HIDALGO [facility] Start: 11-04-2022 End: 11-05-2022 ambulatory NARENDRANATH LAKSHMIPATHY . Facility:[facility] Start: 11-03-2022 End: 11-03-[address] ANGLE SANTANA . Facility:[facility] Start: 10-31-2022 ambulatory SANTOS ROUSSEAU . Facili ty:[facility]1 Start: 10-28-2022 End: 10-29-2022 Emergency department patient visit Favian Helm Facility:[facility] Start: 10-28-2022 End: 10-28-2022 Emergency department patient visit MD Angle Santana Work Phone: [facility] Work Phone: Start: 10-28-2022 End: 10-28-2022 ambulatory RHIANNON BERNARD [facility] Start: 10-27-2022 End: 10-28-2022 ambulatory NARENDRANBARBI PHOENIXMIPATHY . Facility:[facility]1 Start: 10-25-2022 End: 10-26-2022 Evaluation and management of inpatient DR ANGLE SANTANA . Facility:[facility] Start: 10-19-2022 End: 10-19-[address] ANGLE SANTANA . Facility:[facility] Start: 10-12-2022 End: 10-13-[address] ANGLE SANTANA . Facility:[facility] Start: 10-12-2022 End: 10-12-2022 ambulatory FELECIA MILIAN . Facility:[facility] Start: 10-11-2022 End: 10-11-2022 ambulatory NARENDRANBARBI MURILLOSHMIPATHY . Facility:[facility] Start: 10-10-2022 End: 10-10-2022 ambulatory ZANDRA GONZALEZ [facility] Start: 10-05-2022 End: 10-07-[address] ANGLE SANTANA . Facility:[facility] Start: 10-05-2022 ambulatory FELECIA GOLDENTisha . Facility: [facility] Start: 09-29-2022 End: 10-04-[address] ANGLE SANTANA . Facility:[facility] Start: 09-27-2022 End: 09-27-2022 ambulatory Raeann Huntercristin Other [facility] Other Start: 09-27-2022 Office outpatient [facility] Start: 09-21-2022 End: 09-22-[address] ANGLE SANTANA . Facility:[facility]1 Start: 09-20-2022 End: 09-21-2022 ambulatory SADIE PHOENIXMICONSTANTINO . Facility:[facility] Start: 09-19-2022 End: 09-20-[address] ANGLE SANTANA . Facility:[facility] Start: 09-19-2022 End: 09-20-2022 ambulatory RAEANN KIRKPATRICK Facility:[facility] Start: 08-24-2022 End: 09-12-[address] ANGLE SANTANA . Facility:[facility] Start: 08-23-2022 End: 08-23-2022 ambulatory Sue Leiva Other [facility] Other Start: 08-23-2022 Office outpatient ne w [address] [facility] Start: 08-16-2022 End: 08-17-[address] [...] 04-12-2022 End: 04-12-2022 ambulatory Raeann Kirkpatrick Other [facility] Other Start: 04-12-2022 Office outpatient visit [address] [facility] [place] Start: 04-06-[address] [...] Start: 01-10-2022 End: 01-11-2022 ambulatory Robert Johnston Facility:[facility] Start: 01-06-2022 End: 01-07-[address] ANGLE SANTANA . Facility:[facility]1 Start: 12-30-2021 End: 01-19-[address] ANGLE SANTANA . Facility:[facility]1 Start: 12-23-2021 End: 12-24-2021 ambulatory NNAMDI DEJESUS . Facility:[facility] Start: 12-07-2021 End: 12-22-[address] ANGLE SANTANA . Facility: Start: 12-07-2021 End: 12-07-[address] ANGLE SANTANA . Facility: Start: 08-19-2021 End: 08-20-2021 ambulatory CARLOS REZA Facility:[facility] Start: 06-16-2021 End: 06-16-2021 ambulatory [place] Other [facility] Other Start: 06-16-2021 Office outpatient visit [address] [facility] Start: 01-14-2019 End: 01-14-2019 Patient encounter procedure [facility] Start: 12-03-2018 End: 12-03-2018 Patient encounter procedure [facility] Procedures Date Procedure Procedure Detail Performing [...] Date Care Activity Detail Author Start: 07-03-2023 [facility] Start: 06-29-2023 Hospital admission [facility] Start: 06-29-2023 Referral to care management associate [facility] Blood chemistry [facility] Patient Education [facility] Work Phone: Patient referral [facility] Work Phone: Payers Date Payer Category Payer Medicare [id number] 2022 Self-pay [id number] 2017 Medicare [id number] 2017 Unknown [id number] 1962 Unknown [id number] 2.16.8 40.1.881889.3.579.2.173 1962 Unknown [id number] 2.16.8 40.1.100285.3.579.2.173 1962 Unknown [id number] 2.16.8 40.1.575883.3.579.2.647 1962 Unknown [id number] 2.16.8 40.1.575799.3.579.2.647 1962 Unknown [id number] 2.16.84 0.1.523753.3.579.2.593 1962 Unknown [id number] 2.16.84 0.1.192700.3.579.2.593 1962 Unknown [id number] 2.16.84 0.1.093258.3.579.2.593 1962 Unknown [id number] 2.16.84 0.1.764205.3.579.2.593 1962 Unknown [id number] 2.16.84 0.1.722067.3.579.2.593 1962 Unknown [id number] 2.16.84 0.1.968932.3.579.2.593 1962 Unknown [id number] 2.16.84 0.1.020577.3.579.2.593 1962 Unknown [id number] 2.16.84 0.1.364762.3.579.2.593 1962 Unknown [id number] 2.16.84 0.1.273780.3.579.2.593 1962 Unknown [id number] 2.16.84 0.1.291246.3.579.2.593 1962 Unknown [id number] 2.16.84 0.1.049386.3.579.2.593 1962 Unknown [id number] 2.16.84 0.1.283370.3.579.2.593 1962 Unknown [id number] 2.16.84 0.1.948122.3.579.2.593 1962 Unknown [id number] 2.16.84 0.1.965008.3.579.2.593 1962 Unknown [id number] 2.16.84 0.1.825861.3.579.2.593 1962 Unknown [id number] 2.16.84 0.1.435367.3.579.2.593 1962 Unknown [id number] 2.16.84 0.1.270069.3.579.2.593 1962 Unknown [id number] 2.16.84 0.1.091624.3.579.2.593 1962 Unknown [id number] 2.16.84 0.1.774933.3.579.2.593 1962 Unknown [id number] 2.16.84 0.1.997065.3.579.2.593 1962 Unknown [id number] 2.16.84 0.1.169878.3.579.2.593 1962 Unknown [id number] 2.16.84 0.1.320229.3.579.2.593 1962 Unknown [id number] 2.16.84 0.1.397724.3.579.2.593 1962 Unknown [id number] 2.16.84 0.1.487871.3.579.2.593 1962 Unknown [id number] 2.16.84 0.1.911552.3.579.2.593 1962 Unknown [id number] 2.16.84 0.1.373902.3.579.2.593 1962 Unknown [id number] 2.16.84 0.1.161594.3.579.2.593 1962 Unknown [id number] 2.16.84 0.1.153376.3.579.2.593 1962 Unknown [id number] 2.16.84 0.1.091009.3.579.2.593 1962 Unknown [id number] 2.16.84 0.1.403989.3.579.2.593 1962 Unknown [id number] 2.16.84 0.1.716591.3.579.2.593 1962 Unknown [id number] 2.16.84 0.1.477560.3.579.2.593 1962 Unknown [id number] 2.16.84 0.1.160557.3.579.2.593 1962 Unknown [id number] 2.16.84 0.1.882612.3.579.2.593 1962 Unknown [id number] 2.16.84 0.1.750865.3.579.2.593 1962 Unknown [id number] 2.16.84 0.1.041461.3.579.2.593 1962 Unknown [id number] 2.16.84 0.1.979366.3.579.2.593 1962 Unknown [id number] 2.16.84 0.1.202746.3.579.2.593 1962 Unknown [id number] 2.16.84 0.1.284751.3.579.2.593 1962 Unknown [id number] 2.16.84 0.1.121750.3.579.2.593 1962 Unknown [id number] 2.16.84 0.1.861476.3.579.2.593 1962 Unknown [id number] 2.16.84 0.1.669186.3.579.2.593 1962 Unknown [id number] 2.16.84 0.1.485959.3.579.2.593 1962 Unknown [id number] 2.16.84 0.1.633468.3.579.2.593 1962 Unknown [id number] 2.16.84 0.1.471781.3.579.2.593 1962 Unknown [id number] 2.16.84 0.1.890121.3.579.2.593 1962 Unknown [id number] 2.16.8 40.1.938973.3.579.2.1286 1962 Unknown [id number] 2.16. 840.1.836288.3.579.2.175 1959 Medicaid [id number] Unknown [id number] 2.1 6.840.1.320495.19 Unknown [place] BC/BS [id number] Unknown [id number] 2.16.8 40.1.502572.3.579.2.531 Unknown [id number] 2.16.8 40.1.707355.3.579.2.531 Social History Date Type Detail Facility Unknown if ever smoked [facility] Other Sex Assigned At Sex Assigned At Bir th [facility] Other Start: 10-28-2022 End: 06-30-2023 Tobacco smoking status NHIS Never smoked tobacco (finding) [facility] Start: 1960 Sex Assigned At Female F [facility] Goals Date Patient Goal Desired Activity /State Functional Status Date Assessment Result Facility 07-03-2023 Functional status Patient at Baseline [facility] Work Phone: Mental Status Date Assessment Result Facility 07-03-2023 Cognitive function Cognitive Sta tus Patient at Baseline [facility] Work Phone: Clinical Notes 06-16-2021 to 08-16-2023 Note Date & Type Note Facility 08-16-2023 Note [facility] Consult Note Reason for visit: HFU for acute CHF HPI: Mabel Moser is a 63 y.o. year old with past medical history of CHF, CKD IV, CAD, hypertension, GERD, hypothyroidism, CVA, seizure disorder, pulmonary hypertension, hx of DVT on eliquis. patient was admitted to [facility] for acute decompensated CHF 184# on scale at home, was 172# at [facility] but she feels well and appears compensated She is seeing lymph edema clinic twice a week, has follow up with care management associate next week She has taken her PRN bumex dose once since discharge because she felt as though she did not have a lot of urine output that day but has improved since She is doing much better following fluid restriction of about 9431-7604 mls / day [facility] discharge summary 08/03/23 Hospital course: Mabel Moser is an 63 y.o. female who came from home with Past medical history of CHF, CKD IV, CAD, hypertension, GERD, hypothyroidism, CVA, seizure disorder, pulmonary hypertension, hx of DVT on eliquis presents to [facility] as a direct admission from [facility] with fluid overload. Patient reports worsening [...] Anxiety Arthritis Asthma CHF (congestive heart failure) (CMS/HCC) Coronary artery disease Depression Gastroenteritis Heart valve disease Hypertension Kidney failure Lumbar spondylolysis Stroke ([facility]) PSH: Past Surgical History: Procedure Laterality Date [...] Year: No Utilities: Not At Risk (07/28/2023) [facility] Utilities Threatened with loss of [...] and with ev (more content not included)... [facility] 08-16-2023 Note Patient here for [facility] for CHF. Entresto was stopped and [...] All other systems reviewed and are negative. [facility] 08-03-2023 Note ---- Attestation signed by [...] stable. Patient is to follow-up with her care management associate Navi Weems MD, PhD ---- Nephrology Progress [...] gastric bypass surgery who initially presented to [facility] with concerns for worsening lower extremity edema, after gaining 50 pounds within past week. Patient was evaluated by PCP who increased Bumex dose from 1 mg TID to 3 mg TID but patient had no improvement in symptoms. On presentation to [place], patient's creatinine was 4.55 (baseline 1.8-2), phosphorus 11.2, potassium 5.7, magnesium 1.8, hemoglobin 9.2 and BUN 122. Patient was initiated on Bumex drip but developed hypotension and was changed to IV pushes. Patient was subsequently transferred to [facility] Upon assessment at [facility], patient has downtrend in Cr [...] with meals desvenlafaxine, (more content not included)... [facility] 08-03-2023 Note Active with [facility] home care. Sent the AVS. [facility] 08-03-2023 Note Physical Therapy Physical Therapy Evaluation Patient Name: Mabel Moser : 1960 Today's Date: 08/03/2023 Hx: 63 y/o female adm with 50 Lb wt gain related to CHF exacerbation 07/28/23. General Family/Caregiver Present: No Subjective: Pt agreeable for PT OT emmie, up in recliner following , call light nd tray table in reach, RN aware. PT Diagnosis: baseline mobility lreted to CHF exacerbation Patient Active Problem List Diagnosis Abnormal weight loss Acute sinusitis Amnesia Anxiety Other specified anxiety disorders Mitral valve regurgitation Pulmonic valve regurgitation Aortic valve regurgitation Arthritis of right knee Benign essential hypertension Bilateral hearing loss Chronic obstructive pulmonary disease ([facility]/HCC) CKD (chronic kidney disease) stage 3, GFR 30-59 ml/min ([facility]) Closed fracture of trochanter of femur ([facility]) Clostridium difficile colitis Coronary arteriosclerosis Diffuse thyroid 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 thyrotoxicosis Fluid overload Dehydration Cortical age-related cataract of left eye COVID-19 Displacement of lumbar intervertebral disc without myelopathy Edema of lower extremity Edema Orthopnea Dyspnea Endogenous obesity Essential tremor Chronic diastolic heart failure, NYHA class 2 ([facility]) H/O gastric bypass Gouty arthropathy Gastroesophageal reflux disease Full thickness rotator cuff tear Fibromyalgia Low back pain Hip pain Hyperparathyroidism due to renal insufficiency ([facility]) Hypocalcemia Hypertensive disorder Hypoglycemia Hyponatremia Hypothyroidism Impingement syndrome of shoulder region Insomnia Anemia due to vitamin B12 deficiency Pulmonary hypertension ([facility]) Other fatigue Osteoarthritis of knee Morbid (severe) obesity due to excess calories ([facility]) Left atrial enlargement Lumbosacral neuritis Lumbosacral spondylosis without myelopathy Intractable migraine without status migrainosus Migraine Rheumatic tricuspid valve regurgitation Vitamin D deficiency Tympanic membrane perforation, right Transient ischemic attack Thoracic neuritis Tear of right rotator cuff Swallowing problem Sunburn of second degree Status post tympanoplasty Sprain of shoulder Seizure disorder ([facility]) Polyneuropathy associated with critical illness ([facility]) Polyneuropathy Osteoarthritis of spine with radiculopathy, lumbar region Obesity (BMI 30.0-34.9) Lumbar paraspinal muscle spasm Lateral femoral cutaneous neuropathy, left Internal derangement of right shoulder History of total right knee replacement Hemiparesis, left ([facility]) Hemiparesis due to old stroke ([facility]) Difficulty walking Depression Constipation Abnormal blood chemistry 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 ([facility]) Pre-operative cardiovascular examination Acute on chronic systolic CHF (congestive heart failure) ([facility]) History of CVA in adulthood Hyperkalemia Hypomagnesemia Metabolic acidosis RENETTA (acute kidney injury) ([facility]) Cardiorenal disease Past Medical History: Diagnosis Date Anxiety Arthritis Asthma CHF (congestive heart failure) (CMS/HCC) Coronary artery disease Depression Gastroenteritis Heart valve disease Hypertension Kidney failure Lumbar spondylolysis Stroke ([facility]) Past Surgical History: Procedure Laterality Date APPENDECTOMY [...] shower Prior Level (more content not included)... [facility] 08-03-2023 Note Clinical Nutrition A ssessment: Name: Mabel Moser Room: [address] [place] [address] Date: 1960 Date of Visit: 08/03/23 Admission Dx: Acute on chronic systolic CHF (congestive heart failure) ([facility]) [I50.23] Reason for assessment: length of stay Information obtained from: patient, medical record, and nursing Past Medical History: Diagnosis Date Anxiety Arthritis Asthma CHF (congestive heart failure) ([facility]) Coronary artery disease Depression Gastroenteritis Heart valve disease Hypertension Kidney failure Lumbar spondylolysis Stroke ([facility]) Current Medications: amitriptyline, 300 mg, oral, Nightly [...] 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 Pt reported [...] Sensation: Tingling, Numbness LUE Sensation: Numbness, Tingling (Clin Nurse strength not assessed by RD) Patient at risk for malnutrition according to hospital criteria, but does not meet the clinical characteristics per the Academy of Nutrition (more content not included)... [facility] 08-03-2023 Note Occupational Therapy Occupational Therapy [...] Chronic diastolic heart failure, NYHA class 2 ([facility]) H/O gastric bypass Gouty arthropathy Gastroesophageal reflux disease Full thickness rotator cuff tear Fibromyalgia Low back pain Hip pain Hyperparathyroidism due to renal insufficiency ([facility]) Hypocalcemia Hypertensive disorder Hypoglycemia Hyponatremia Hypothyroidism Impingement syndrome of shoulder region Insomnia Anemia due to vitamin B12 deficiency Pulmonary hypertension ([facility]) Other fatigue Osteoarthritis of knee Morbid (severe) obesity due to excess calories ([facility]) Left atrial enlargement Lumbosacral neuritis Lumbosacral spondylosis without myelopathy Intractable migraine without status migrainosus Migraine Rheumatic tricuspid valve regurgitation Vitamin D deficiency Tympanic membrane perforation, right Transient ischemic attack Thoracic neuritis Tear of right rotator cuff Swallowing problem Sunburn of second degree Status post tympanoplasty Sprain of shoulder Seizure disorder ([facility]) Polyneuropathy associated with critical illness ([facility]) Polyneuropathy Osteoarthritis of spine with radiculopathy, lumbar region Obesity (BMI 30.0-34.9) Lumbar paraspinal muscle spasm Lateral femoral cutaneous neuropathy, left Internal derangement of right shoulder History of total right knee replacement Hemiparesis, left ([facility]) Hemiparesis due to old stroke ([facility]) Difficulty walking Depression Constipation Abnormal blood chemistry 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 ([facility]) Pre-operative cardiovascular examination Acute on chronic systolic CHF (congestive heart failure) ([facility]) History of CVA in adulthood Hyperkalemia Hypomagnesemia Metabolic acidosis RENETTA (acute kidney injury) ([facility]) Cardiorenal disease Past Medical History: Diagnosis Date Anxiety Arthritis Asthma CHF (congestive heart failure) ([facility]) Coronary artery disease Depression Gastroenteritis Heart valve disease Hypertension Kidney failure Lumbar spondylolysis Stroke ([facility]) Past Surgical History: Procedure Laterality Date APPENDECTOMY [...] Occasional cues for (more content not included)... [facility] 08-03-2023 Note Hospital Medicine Discharge Summary [...] hx of DVT on eliquis presents to [facility] as a direct admission from [facility] with fluid overload. Patient reports worsening [...] Center 08/08/2023 11:40 AM Macie Garcia NP [facility] Your medication list START taking these medications [...] Medications These medications were sent to [facility] - [place], [place] - [address] [place] [address] [address] [place] [address], [facility] [address] bumetanide 1 mg tablet carvedilol 6.25 mg tablet Mabel is allergic to betadine [povidone-iodine], cephalexin, ciprofloxacin, gabapentin, iodine, pregabalin, sulfa (sulfonamide antibiotics), sulfamethoxazole-trimethoprim, and amoxicillin-pot clavulanate. Disposition: Home-Health Care [facility] (06) Discharge Condition: Stable Code Status: Full [...] displayed. Chemistry: Resul (more content not included)... [facility] 08-02-2023 Note ---- Attestation signed by [...] Patient : Mabel Moser; 63 y.o. Location: [facility]/5183-01 Attending: Rayray Mix MD Admit Date: 07/28/2023 Hospital Day: 5 Reason for Consult: Acute Renal Failure Subjective: History of present illness: Mabel Moser is a 63 y.o. female onCKD Stage V alpha-1 antitrypsin carrier, HFpEF, essential hypertension GERD, hypothyroidism, CVA, seizures, DVT on eliquis, morbid obesity s/p gastric bypass surgery who initially presented to [facility] with concerns for worsening lower extremity edema, after gaining 50 pounds within past week. Patient was evaluated by PCP who increased Bumex dose from 1 mg TID to 3 mg TID but patient had no improvement in symptoms. On presentation to [place], patient's creatinine was 4.55 (baseline 1.8-2), phosphorus 11.2, potassium 5.7, magnesium 1.8, hemoglobin 9.2 and BUN 122. Patient was initiated on Bumex drip but developed hypotension and was changed to IV pushes. Patient was subsequently transferred to [facility] Upon assessment at [facility], patient has downtrend in Cr [...] 100 mcg, or (more content not included)... [facility] 08-02-2023 Note Hospital Medicine Daily Progress Note - 08/02/2023 12:05 PM; Room: [facility]- Admission: 07/28/2023 4:37 PM; Length of stay: 5 days THE HOSPITALIST TEAM PREFERS TO USE [employer] CHAT FOR COMMUNICATION 7AM-7PM. IF I DO NOT RESPOND WITHIN 15 MINUTES, PLEASE PAGE ME/CALL THROUGH THE HIGHWAY MAINTENANCE CREW WORKER. FROM 7PM-7AM, PLEASE PAGE [phone](COVR) Code Status: Full Code Barriers to Discharge: [...] on chronic systolic CHF (congestive heart failure) ([facility]) Active Problems: Benign essential hypertension CKD (chronic kidney disease) stage 3, GFR 30-59 ml/min ([facility]) Coronary arteriosclerosis Gastroesophageal reflux disease Hypothyroidism Pulmonary hypertension ([facility]) Seizure disorder ([facility]) Obesity (BMI 30.0-34.9) History of CVA in adulthood Hyperkalemia Hypomagnesemia Metabolic acidosis RENETTA (acute kidney injury) ([facility]) Cardiorenal disease Assessment and Plan Acute decompensated [...] -- PLATELETS AU (more content not included)... [facility] 08-02-2023 Note Subjective Follow up for: lower extremity edema with orthopnea, heart failure exacerbation. HPI: Mabel Moser is a 63 y.o. female with PMH of alpha-1 antitrypsin carrier, HFpEF, CKD 3A, HTN, GERD, hypothyroidism, CVA, seizures, DVT (on Eliquis at home), morbid obesity s/p gastric bypass surgery who initially presented to [facility] with concerns for bilateral worsening lower [...] duplex ultrasound. She was then transferred to [facility]. At [facility], her creatinine did improved slightly to 3.64, hemoglobin 8.5, troponin 0.01, BNP 265. She was initiated on IV Lasix 80 mg 3 times daily. Patient tells me that she did have a TTE performed at [facility] 2 months back but there [...] in the past she was admitted to [facility] in 2019 with fluid overload and [...] [facility] She denies CP, worsened SOB, palpitations, [...] edema present. Sk (more content not included)... [facility] 08-01-2023 Note Subjective Follow up for: lower extremity edema with orthopnea, heart failure exacerbation. HPI: Mabel Moser is a 63 y.o. female with PMH of alpha-1 antitrypsin carrier, HFpEF, CKD 3A, HTN, GERD, hypothyroidism, CVA, seizures, DVT (on Eliquis at home), morbid obesity s/p gastric bypass surgery who initially presented to [facility] with concerns for bilateral worsening lower [...] duplex ultrasound. She was then transferred to [facility]. At [facility], her creatinine did improved slightly to 3.64, hemoglobin 8.5, troponin 0.01, BNP 265. She was initiated on IV Lasix 80 mg 3 times daily. Patient tells me that she did have a TTE performed at [facility] 2 months back but there [...] in the past she was admitted to [facility] in 2018 with fluid overload and [...] takes less t (more content not included)... [facility] 08-01-2023 Note ---- Attestation signed by [...] gastric bypass surgery who initially presented to [facility] with concerns for worsening lower extremity edema, after gaining 50 pounds within past week. Patient was evaluated by PCP who increased Bumex dose from 1 mg TID to 3 mg TID but patient had no improvement in symptoms. On presentation to [place], patient's creatinine was 4.55 (baseline 1.8-2), phosphorus 11.2, potassium 5.7, magnesium 1.8, hemoglobin 9.2 and BUN 122. Patient was initiated on Bumex drip but developed hypotension and was changed to IV pushes. Patient was subsequently transferred to [facility] Upon assessment at [facility], patient has downtrend in Cr [...] 100 mg, oral (more content not included)... [facility] 08-01-2023 Note 08/01/23 0959 Admission Assessment Questions Verify insurance with patient Yes ([facility] Medicare/[place] Medicaid) Do you understand medical disease or what brought you into the hospital? Yes ( I'm in kidney failure & I went into fluid overload ) Who is your current PCP? Angle Santana MD Can I schedule a follow up appointment for you at the time of discharge? No ( I go to [facility] for alot of my physicians ) Do you understand why you are taking your current medications? Yes Are you taking your medications as prescribed? Yes Did patient provide teach back? No Would you like use our pharmacy iMeds to fill your new medications at the time of Discharge? Yes Does the patient have a wrapper caser assigned to them through their insurance? No Living Arrangement (Current/Prior to Hospitalization) Private residence;Home self care;Other (Comment) (Lives with Delio in 1 story Home+Basement with Ramp/Laundry; stated active with [facility]; Support system 2 Daughter live locally, Lost Son Apr 2023 liver failure & lost infant daughter; Pt has a R Chest [employer]) Does the patient have history of HHC or SNF? Yes (stated active with [facility], previously went to SNF about 8 hrs ago & also [facility] in [place]) Assistive Device Cane;Grab bars;Raised toilet seat;Walker;Wheelchair (has [...] Plan: Home, resume [facility], Await PT/OT evaluations today to make sure this is a safe dc plan. [facility] 08-01-2023 Note ---- Attestation signed by [...] Progress Note - 08/01/2023 11:05 AM; Room: [address] [place] [address] Admission: 07/28/2023 4:37 PM; Length of stay: 4 days THE HOSPITALIST TEAM PREFERS TO USE [employer] FOR COMMUNICATION 7AM-7PM. IF I DO NOT RESPOND WITHIN 15 MINUTES, PLEASE PAGE ME/CALL THROUGH THE HIGHWAY MAINTENANCE CREW WORKER. FROM 7PM-7AM, PLEASE PAGE [phone](COVR) Code Status: Full Code Barriers to Discharge: Renal failure Expected Discharge Date: ~08/02? Discharge Destination: home Overview Patient is seen for evaluation and management of ARF. Subjective Mabel Hellerlorenrobert was seen and examined at bedside. Patient [...] on chronic systolic CHF (congestive heart failure) ([facility]) Active Problems: Benign essential hypertension CKD (chronic kidney disease) stage 3, GFR 30-59 ml/min ([facility]) Coronary arteriosclerosis Gastroesophageal reflux disease Hypothyroidism Pulmonary hypertension ([facility]) Seizure disorder ([facility]) Obesity (BMI 30.0-34.9) History of CVA in adulthood Hyperkalemia Hypomagnesemia Metabolic acidosis RENETTA (acute kidney injury) ([facility]) Cardiorenal disease Assessment and Plan Acute decompensated [...] CAD, Continue h (more content not included)... [facility] 07-31-2023 Note ---- Attestation signed by [...] tomorrow. She has no urgent need for CLAM TREADER, she will need to follow up with her care management associate upon discharge. ---- Nephrology Progress Note Patient [...] gastric bypass surgery who initially presented to [facility] with concerns for worsening lower extremity edema, after gaining 50 pounds within past week. Patient was evaluated by PCP who increased Bumex dose from 1 mg TID to 3 mg TID but patient had no improvement in symptoms. On presentation to [place], patient's creatinine was 4.55 (baseline 1.8-2), phosphorus 11.2, potassium 5.7, magnesium 1.8, hemoglobin 9.2 and BUN 122. Patient was initiated on Bumex drip but developed hypotension and was changed to IV pushes. Patient was subsequently transferred to [facility]. Upon assessment at [facility], patient has downtrend in Cr [...] shifts: In: 1350 (16.3 mL/kg) [P.O.:1350] Out: 34205 (128.3 mL/kg) [Urine:32087 (3.6 mL/kg/hr)] Weight: 83 kg Vital signs: [...] oxyCODONE, Insert periph (more content not included)... [facility] 07-31-2023 Note Subjective Follow up for: lower extremity edema with orthopnea, heart failure exacerbation. HPI: Mabel Moser is a 63 y.o. female with PMH of alpha-1 antitrypsin carrier, HFpEF, CKD 3A, HTN, GERD, hypothyroidism, CVA, seizures, DVT (on Eliquis at home), morbid obesity s/p gastric bypass surgery who initially presented to [facility] with concerns for bilateral worsening lower [...] duplex ultrasound. She was then transferred to [facility]. At [facility], her creatinine did improved slightly to 3.64, hemoglobin 8.5, troponin 0.01, BNP 265. She was initiated on IV Lasix 80 mg 3 times daily. Patient tells me that she did have a TTE performed at [facility] 2 months back but there [...] in the past she was admitted to [facility] in 2019 with fluid overload and [...] Psychiatric: Mood an (more content not included)... [facility] 07-31-2023 Note Pt admitted to blue [...] up with pt, if appropriate. HILARIA FrancoN small animal caretaker Outpatient Coordinator Cardiopulmonary Rehab [facility] 07-31-2023 Note Hospital Medicine Daily Progress Note - 07/31/2023 10:40 AM; Room: 5183/5183-01 Admission: 07/28/2023 4:37 PM; Length of stay: 3 days THE HOSPITALIST TEAM PREFERS TO USE [employer] CHAT FOR COMMUNICATION 7AM-7PM. IF I DO NOT RESPOND WITHIN 15 MINUTES, PLEASE PAGE ME/CALL THROUGH THE HIGHWAY MAINTENANCE CREW WORKER. FROM 7PM-7AM, PLEASE PAGE [phone](COVR) Code Status: Full Code Barriers to Discharge: [...] on chronic systolic CHF (congestive heart failure) ([facility]) Active Problems: Benign essential hypertension CKD (chronic kidney disease) stage 3, GFR 30-59 ml/min ([facility]) Coronary arteriosclerosis Gastroesophageal reflux disease Hypothyroidism Pulmonary hypertension ([facility]) Seizure disorder ([facility]) History of CVA in adulthood Hyperkalemia Hypomagnesemia Metabolic acidosis RENETTA (acute kidney injury) ([facility]) Cardiorenal disease Assessment and Plan Acute decompensated [...] INR -- -- 1.15* Chemistry: Results from [facility] (more content not included)... [facility] 07-30-2023 Note ---- Attestation signed by [...] bid from tid. No urgent need for CLAM TREADER, will continue to follow along. ---- Nephrology [...] gastric bypass surgery who initially presented to [facility] with concerns for worsening lower extremity edema, after gaining 50 pounds within past week. Patient was evaluated by PCP who increased Bumex dose from 1 mg TID to 3 mg TID but patient had no improvement in symptoms. On presentation to [place], patient's creatinine was 4.55 (baseline 1.8-2), phosphorus 11.2, potassium 5.7, magnesium 1.8, hemoglobin 9.2 and BUN 122. Patient was initiated on Bumex drip but developed hypotension and was changed to IV pushes. Patient was subsequently transferred to [facility] Upon assessment at [facility], patient has downtrend in Cr [...] lock IV AND* (more content not included)... [facility] 07-30-2023 Note Subjective Reason for Consult: Bilaterally worsening lower extremity edema with orthopnea, concerning for heart failure exacerbation. HPI: Mabel Moser is a 63 y.o. female with PMH of alpha-1 antitrypsin carrier, HFpEF, CKD 3A, HTN, GERD, hypothyroidism, CVA, seizures, DVT (on Eliquis at home), morbid obesity s/p gastric bypass surgery who initially presented to [facility] with concerns for bilateral worsening lower [...] duplex ultrasound. She was then transferred to [facility]. At [facility], her creatinine did improved slightly to 3.64, hemoglobin 8.5, troponin 0.01, BNP 265. She was initiated on IV Lasix 80 mg 3 times daily. Patient tells me that she did have a TTE performed at [facility] 2 months back but there [...] in the past she was admitted to [facility] in 2018 with fluid overload and [...] is cooperative. Thought (more content not included)... [facility] 07-30-2023 Note Hospital Medicine Daily Progress Note - 07/30/2023 8:15 AM; Room: 5183/5183-01 Admission: 07/28/2023 4:37 PM; Length of stay: 2 days THE HOSPITALIST TEAM PREFERS TO USE [employer] CHAT FOR COMMUNICATION 7AM-7PM. IF I DO NOT RESPOND WITHIN 15 MINUTES, PLEASE PAGE ME/CALL THROUGH THE HIGHWAY MAINTENANCE CREW WORKER. FROM 7PM-7AM, PLEASE PAGE [phone](COVR) Code Status: Full Code Barriers to Discharge: Renal failure Expected Discharge Date: ~08/02? Discharge Destination: home Overview Patient is seen for evaluation and management of ARF. Marry Isbella Ivy Tovarrobert was seen and examined at [...] on chronic systolic CHF (congestive heart failure) ([facility]) Active Problems: Benign essential hypertension CKD (chronic kidney disease) stage 3, GFR 30-59 ml/min ([facility]) Coronary arteriosclerosis Gastroesophageal reflux disease Hypothyroidism Pulmonary hypertension ([facility]) Seizure disorder ([facility]) History of CVA in adulthood Hyperkalemia Hypomagnesemia Metabolic acidosis RENETTA (acute kidney injury) ([facility]) Assessment and Plan Acute decompensated HF - [...] meals Pertinent Invest (more content not included)... [facility] 07-29-2023 Note Hospital Medicine Daily Progress Note - 07/29/2023 4:06 PM; Room: [address] [place] [address] Admission: 07/28/2023 4:37 PM; Length of stay: 1 days THE HOSPITALIST TEAM PREFERS TO USE [employer] CHAT FOR COMMUNICATION 7AM-7PM. IF I DO NOT RESPOND WITHIN 15 MINUTES, PLEASE PAGE ME/CALL THROUGH THE HIGHWAY MAINTENANCE CREW WORKER. FROM 7PM-7AM, PLEASE PAGE [phone](COVR) Code Status: Full Code Barriers to Discharge: [...] 1.15* -- -- (more content not included)... [facility] 07-28-2023 Note Hospital Medicine History and Physical 07/28/2023 6:16 PM THE HOSPITALIST TEAM PREFERS TO USE [employer] FOR COMMUNICATION 7AM-7PM. IF I DO NOT RESPOND WITHIN 15 MINUTES, PLEASE PAGE ME/CALL THROUGH THE HIGHWAY MAINTENANCE CREW WORKER. FROM 7PM-7AM, PLEASE PAGE [phone](COVR) Chief Complaint Direct admission with fluid overload History of Present Illness Mabel Moser is an 63 y.o. female who came from home with Past medical history of CHF, CKD 3, CAD, hypertension, GERD, hypothyroidism, CVA, seizure disorder, pulmonary hypertension, hx of DVT on eliquis presents to [facility] as a direct admission from [facility] with fluid overload. Patient reports worsening bilateral lower extremity edema over the last week. Reports a 50 pound weight gain within that same time period. 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 Patient saw her PCP yesterday who sent her directly to [place] for IV diuresis. Upon arrival there, patient [...] her normal limit, patient was transferred to [facility] for higher level of care. Upon arrival to [facility] repeat labs are completed showing pH 7.28, hemoglobin 8.5, magnesium 1.6, BUN 109, creatinine 3.64, BNP 265. Spoke with care management associate on the phone as patient with persistent [...] on chronic systolic CHF (congestive heart failure) ([facility]) 07/28/2023 Polyneuropathy associated with critical illness ([facility]) 11/27/2022 Polyneuropathy 11/27/2022 Osteoarthritis of spine with radiculopathy, lumbar region 11/27/2022 Obesity (BMI 30-39.9) 11/27/2022 Lumbar paraspinal muscle spasm 11/27/2022 Lateral femoral cutaneous neuropathy, left 11/27/2022 Internal derangement of right shoulder 11/27/2022 History of total right knee replacement 11/27/2022 Hemiparesis, left ([facility]) 11/27/2022 Hemiparesis due to old stroke ([facility]) 11/27/2022 Dif (more content not included)... [facility] 07-13-2023 Note [place] Cardiology - [facility] Subjective Mabel Moser is a 63 y.o. year old female patient being seen for 6 mo follow up chronic diastolic heart failure, CKD, and CAD. Says she saw Dr. Santana yesterday and he raised her spironolactone to 100mg, which she takes PRN. She was seen in [facility] 2 weeks ago for LE edema [...] Bilateral hearing loss Chronic obstructive pulmonary disease ([facility]) CKD (chronic kidney disease) stage 3, GFR 30-59 ml/min ([facility]) Closed fracture of trochanter of femur ([facility]) Clostridium difficile colitis Coronary arteriosclerosis Diffuse thyroid 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 thyrotoxicosis Fluid overload Dehydration Cortical age-related cataract of left eye COVID-19 Displacement of lumbar intervertebral disc without myelopathy Edema of lower extremity Edema Orthopnea Dyspnea Endogenous obesity Essential tremor Chronic diastolic heart failure, NYHA class 2 ([facility]) H/O gastric bypass Gouty arthropathy Gastroesophageal reflux [...] In the past she was admitted to [facility] in 2019 with fluid overload and [...] reviewed and a (more content not included)... [facility] 07-03-2023 Progress note Note Date/Time July 03, 2023 12:18pm [facility] [address] [place] [address] Nephrology Progress Note Signed Patient: Mabel Moser MR#: [id number] : 1960 Acct:[id number] Age/Sex: 63 / F Adm Date: 4 Loc: Room: [address] [place] [address] Type: ADM IN Attending Dr: Jim Randhawa [...] 2 Mg Tablet) 2 mg PO DAILY [facility] Stop: 06/29/24 08:59 Last Admin: 07/03/23 08:13 Dose: 2 mg Bisacodyl (Bisacodyl 5 Mg Tablet.Dr) 10 mg PO DAILY PRN PRN Reason: Constipation Stop: 06/28/24 21:34 Bumetanide (Bumetanide 1 Mg/4 Ml Vial) 1 mg IV-PUSH BID@0800,1600 [facility] Stop: 06/29/24 07:59 Last Admin: 07/03/23 08:14 Dose: 1 mg Calcium Acetate (Calcium Acetate 667 Mg Capsule) 667 mg PO BID.WITH.MEALS [facility] Stop: 06/29/24 07:59 Last Admin: 07/03/23 08:13 Dose: 667 mg Duloxetine HCl (Duloxetine 60 Mg Capsule.) 120 mg PO DAILY [facility] Stop: 06/29/24 08:59 Last Admin: 07/03/23 08:13 Dose: 120 mg Fentanyl (Fentanyl Patch 100 Mcg/Hour Patch.Td72) 100 mcg TRANSDERML Q72H [facility]; Protocol Last Admin: 07/03/23 08:12 Dose: 100 mcg Ferrous Sulfate (Ferrous Sulfate 324 Mg Tablet.) 324 mg PO DAILY [facility] Stop: 06/29/24 08:59 Last Admin: 07/03/23 08:13 Dose: 324 mg Gabapentin (Gabapentin 100 Mg Capsule) 100 mg PO TID [facility] Stop: 06/29/24 08:59 Last Admin: 07/03/23 08:13 Dose: 100 mg Guaifenesin/Dextromethorphan (Guaif/Dextromethorphan Syrup 10 Ml Udc) 10 ml PO Q8H PRN PRN Reason: Cough Stop: 06/28/24 21:34 Heparin Sodium (Porcine) (Heparin 5,000 Unit/Ml Vial) 5,000 unit SUBCUT Q12HR [facility] Stop: 06/29/24 08:59 Last Admin: 07/03/23 08:14 Dose: 5,000 unit Levothyroxine Sodium (Levothyroxine 100 Mcg Tablet) 100 mcg PO DAILY@0630 [facility] Stop: 06/29/24 06:29 Last Admin: 07/03/23 06:23 Dose: 100 mcg Linaclotide (Linaclotide 290 Mcg Capsule) 290 mcg PO Q48HR [facility] Stop: 06/29/24 08:59 Last Admin: 07/02/23 08:59 Dose: 290 mcg Liothyronine Sodium (Liothyronine 25 Mcg Tablet) 25 mcg PO DAILY@0630 [facility] Stop: 06/29/24 10:59 Last Admin: 07/03/23 06:23 Dose: 25 mcg Loratadine (Loratadine 10 Mg Tablet) 10 mg PO DAILY PRN PRN Reason: Allergy Symptoms Stop: 06/29/24 06:54 Melatonin (Melatonin 5 Mg Tablet) 5 mg PO QHS PRN PRN Reason: Insomnia Stop: 06/28/24 21:34 Metoprolol Tartrate (Metoprolol Tartrate 25 Mg Tablet) 25 mg PO BID [facility] Stop: 06/29/24 20:59 Last Admin: 07/03/23 08:14 Dose: 25 mg Ondansetron HCl (Ondansetron 4 Mg/2 Ml Vial) 4 mg IV-PUSH Q8H PRN PRN Reason: Nausea And Vomiting Stop: 06/28/24 21:34 Oxycodone/Acetaminophen (Oxycodone/Acetaminophen 5-325 Mg Tablet) 2 tab PO Q6H PRN PRN Reason: Pain Last Admin: 07/03/23 11:25 Dose: 2 tab Pantoprazole Sodium (Pantoprazole 40 Mg Tablet.Dr) 40 mg PO BID [facility] Stop: 06/29/24 08:59 Last Admin: 07/03/23 08:13 Dose: 40 mg Primidone (Primidone 50 Mg Tablet) 100 mg PO HS [facility] Stop: 06/29/24 21:59 Last Admin: 07/02/23 21:00 Dose: 100 mg Sevelamer Carbonate (Sevelamer Carbonate 800 Mg Tablet) 800 mg PO TID.WITH.MEALS [facility] Stop: 06/29/24 11:59 Last Admin: 07/03/23 11:22 [...] reading physician into a diagnostic report(s) for Mable Moser. I have reviewed the report(s) and [...] to baseline Documented By: Raeann Kirkpatrick MD 07/03/233 Signed By: <Electronically signed by Raeann Kirkpatrick MD> 07/03/23 1218 [facility] Work Phone: 1(781) 745-682301-07-2024 Progress note Author Jim Randhawa [facility] July 02, 2023 11:26am Note Date/Time July 02, 2023 11 :26am [facility] [address] [place] [address] Hospitalist Progress Note Signed Patient: Mabel Moser MR#: [id number] : 1960 Acct:[id number] Age/Sex: 63 / F Adm Date: 4 Loc: Room: [address] [place] [address] Type: ADM IN Attending Dr: Jim Randhawa [...] mg 06/29/23 21:35 Bisacodyl 5 Mg Tablet.Dr MCMANUS 06/28/24 21:34 DAILY PRN Constipation Bumetanide 1 [...] BID [facility] Administration Ondansetron HCl 4 mg 01/04/24 21:35 Ondansetron 4 Mg/2 Ml Vial IV-PUSH [...] signed by Jim Randhawa, > 07/02/23 1126 [facility] Work Phone: 1(968) 339-916901-07-2024 Progress note Author [place] [facility] July 02, 2023 10:42am Note Date/Time July 02, 2023 10 :42am [facility] [address] [place] [address] Nephrology Progress Note Signed Patient: Mabel Moser MR#: [id number] : 1960 Acct:[id number] Age/Sex: 63 / F Adm Date: 4 Loc: Room: [address] [place] [address] Type: ADM IN Attending Dr: Jim Randhawa [...] 2 Mg Tablet) 2 mg PO DAILY [facility] Stop: 06/29/24 08:59 Last Admin: 07/02/23 08:55 Dose: 2 mg Bisacodyl (Bisacodyl 5 Mg Tablet.) 10 mg PO DAILY PRN PRN Reason: Constipation Stop: 06/28/24 21:34 Bumetanide (Bumetanide 1 Mg/4 Ml Vial) 1 mg IV-PUSH BID@0800,1600 [facility] Stop: 06/29/24 07:59 Last Admin: 07/02/23 08:55 Dose: 1 mg Calcium Acetate (Calcium Acetate 667 Mg Capsule) 667 mg PO BID.WITH.MEALS [facility] Stop: 06/29/24 07:59 Last Admin: 07/02/23 08:55 Dose: 667 mg Duloxetine HCl (Duloxetine 60 Mg Capsule.) 120 mg PO DAILY [facility] Stop: 06/29/24 08:59 Last Admin: 07/02/23 08:59 Dose: 120 mg Fentanyl (Fentanyl Patch 100 Mcg/Hour Patch.Td72) 100 mcg TRANSDERML Q72H [facility]; Protocol Last Admin: 06/30/23 09:31 Dose: 100 mcg Ferrous Sulfate (Ferrous Sulfate 324 Mg Tablet.) 324 mg PO DAILY [facility] Stop: 06/29/24 08:59 Last Admin: 07/02/23 08:55 Dose: 324 mg Gabapentin (Gabapentin 100 Mg Capsule) 100 mg PO TID [facility] Stop: 06/29/24 08:59 Last Admin: 07/02/23 08:55 Dose: 100 mg Guaifenesin/Dextromethorphan (Guaif/Dextromethorphan Syrup 10 Ml Udc) 10 ml PO Q8H PRN PRN Reason: Cough Stop: 06/28/24 21:34 Heparin Sodium (Porcine) (Heparin 5,000 Unit/Ml Vial) 5,000 unit SUBCUT Q12HR [facility] Stop: 06/29/24 08:59 Last Admin: 07/02/23 08:55 Dose: 5,000 unit Levothyroxine Sodium (Levothyroxine 100 Mcg Tablet) 100 mcg PO DAILY@0630 [facility] Stop: 06/29/24 06:29 Last Admin: 07/02/23 05:48 Dose: 100 mcg Linaclotide (Linaclotide 290 Mcg Capsule) 290 mcg PO Q48HR [facility] Stop: 06/29/24 08:59 Last Admin: 07/02/23 08:59 Dose: 290 mcg Liothyronine Sodium (Liothyronine 25 Mcg Tablet) 25 mcg PO DAILY@0630 [facility] Stop: 06/29/24 10:59 Last Admin: 07/02/23 05:48 Dose: 25 mcg Loratadine (Loratadine 10 Mg Tablet) 10 mg PO DAILY PRN PRN Reason: Allergy Symptoms Stop: 06/29/24 06:54 Melatonin (Melatonin 5 Mg Tablet) 5 mg PO QHS PRN PRN Reason: Insomnia Stop: 06/28/24 21:34 Metoprolol Tartrate (Metoprolol Tartrate 25 Mg Tablet) 25 mg PO BID [facility] Stop: 06/29/24 20:59 Last Admin: 07/02/23 08:55 Dose: 25 mg Ondansetron HCl (Ondansetron 4 Mg/2 Ml Vial) 4 mg IV-PUSH Q8H PRN PRN Reason: Nausea And Vomiting Stop: 06/28/24 21:34 Oxycodone/Acetaminophen (Oxycodone/Acetaminophen 5-325 Mg Tablet) 2 tab PO Q6H PRN PRN Reason: Pain Last Admin: 07/02/23 02:00 Dose: 2 tab Pantoprazole Sodium (Pantoprazole 40 Mg Tablet.Dr) 40 mg PO BID [facility] Stop: 06/29/24 08:59 Last Admin: 07/02/23 08:55 Dose: 40 mg Primidone (Primidone 50 Mg Tablet) 100 mg PO HS [facility] Stop: 06/29/24 21:59 Last Admin: 07/01/23 21:21 Dose: 100 mg Sevelamer Carbonate (Sevelamer Carbonate 800 Mg Tablet) 800 mg PO TID.WITH.MEALS [facility] Stop: 06/29/24 11:59 Last Admin: 07/02/23 [...] signed by MD Los Grissom> 07/02/23 1042 [facility] Work Phone: 1(689) 521-553401-06-2024 Progress note Author Jim Randhawa [facility] July 01, 2023 1:52pm Note Date/Time July 01, 2023 1: 37pm [facility] [address] [place] [address] Hospitalist Progress Note Signed Patient: Mabel Moser MR#: [id number] : 1960 Acct:[id number] Age/Sex: 63 / F Adm Date: 4 Loc: Room: [address] [place] [address] Type: ADM IN Attending Dr: Jim Randhawa [...] 06/30/23 09:00 07/01/23 08:21 Pantoprazole 40 Mg Tablet. PO 06/29/24 08:59 [...] <Electronically signed by Jim Randhawa DO> 07/01/23 135 [facility] Work Phone: 1(573) 865-345301-06-2024 Progress note Author Bryonirvin Grissom [facility] July 01, 2023 10:16am Note Date/Time July 01, 2023 10 :16am [facility] [address] [place], [place] [id number] Nephrology Progress Note Signed Patient: Mabel Moser MR#: [id number] : 1960 Acct:[id number] Age/Sex: 63 / F Adm Date: 4 Loc: Room: [address] [place] [address] Type: ADM IN Attending Dr: Jim Randhawa [...] 50 Mg Tablet) 150 mg PO QHS [facility] Stop: 06/29/24 21:59 Last Admin: 06/30/23 21:17 Dose: 150 mg Aripiprazole (Aripiprazole 2 Mg Tablet) 2 mg PO DAILY [facility] Stop: 06/29/24 08:59 Last Admin: 07/01/23 08:21 Dose: 2 mg Bisacodyl (Bisacodyl 5 Mg Tablet.Dr) 10 mg PO DAILY PRN PRN Reason: Constipation Stop: 06/28/24 21:34 Bumetanide (Bumetanide 1 Mg/4 Ml Vial) 1 mg IV-PUSH BID@0800,1600 [facility] Stop: 06/29/24 07:59 Last Admin: 07/01/23 08:21 Dose: 1 mg Calcium Acetate (Calcium Acetate 667 Mg Capsule) 667 mg PO BID.WITH.MEALS [facility] Stop: 06/29/24 07:59 Last Admin: 07/01/23 08:20 Dose: 667 mg Duloxetine HCl (Duloxetine 60 Mg Capsule.) 120 mg PO DAILY [facility] Stop: 06/29/24 08:59 Last Admin: 07/01/23 08:20 Dose: 120 mg Fentanyl (Fentanyl Patch 100 Mcg/Hour Patch.Td72) 100 mcg TRANSDERML Q72H [facility]; Protocol Last Admin: 06/30/23 09:31 Dose: 100 mcg Ferrous Sulfate (Ferrous Sulfate 324 Mg Tablet.) 324 mg PO DAILY [facility] Stop: 06/29/24 08:59 Last Admin: 07/01/23 08:20 Dose: 324 mg Gabapentin (Gabapentin 100 Mg Capsule) 100 mg PO TID [facility] Stop: 06/29/24 08:59 Last Admin: 07/01/23 08:20 Dose: 100 mg Guaifenesin/Dextromethorphan (Guaif/Dextromethorphan Syrup 10 Ml Udc) 10 ml PO Q8H PRN PRN Reason: Cough Stop: 06/28/24 21:34 Heparin Sodium (Porcine) (Heparin 5,000 Unit/Ml Vial) 5,000 unit SUBCUT Q12HR [facility] Stop: 06/29/24 08:59 Last Admin: 07/01/23 08:21 Dose: 5,000 unit Levothyroxine Sodium (Levothyroxine 100 Mcg Tablet) 100 mcg PO DAILY@0630 [facility] Stop: 06/29/24 06:29 Last Admin: 07/01/23 05:46 Dose: 100 mcg Linaclotide (Linaclotide 290 Mcg Capsule) 290 mcg PO Q48HR [facility] Stop: 06/29/24 08:59 Last Admin: 06/30/23 09:33 Dose: 290 mcg Liothyronine Sodium (Liothyronine 25 Mcg Tablet) 25 mcg PO DAILY@0630 [facility] Stop: 06/29/24 10:59 Last Admin: 07/01/23 05:46 Dose: 25 mcg Loratadine (Loratadine 10 Mg Tablet) 10 mg PO DAILY PRN PRN Reason: Allergy Symptoms Stop: 06/29/24 06:54 Melatonin (Melatonin 5 Mg Tablet) 5 mg PO QHS PRN PRN Reason: Insomnia Stop: 06/28/24 21:34 Metoprolol Tartrate (Metoprolol Tartrate 25 Mg Tablet) 25 mg PO BID [facility] Stop: 06/29/24 20:59 Last Admin: 07/01/23 08:20 [...] signed by MD Los Grissom> 07/01/23 1016 [facility] Work Phone: 1(404) 162-305201-05-2024 Progress note Author Jim Randhawa [facility] June 30, 2023 1:13pm Note Date/Time June 30, 2023 1: 13pm [facility] [address] [place] [address] Hospitalist Progress Note Signed Patient: Mabel Moser MR#: [id number] : 1960 Acct:[id number] Age/Sex: 63 / F Adm Date: 4 Loc: 3T Room: [address] [place] [address] Type: ADM IN Attending Dr: Jim Randhawa [...] signed by Jim Randhawa DO> 06/30/23 1313 [facility] Work Phone: [phone] 228-206301-05-2024 Consult note Author Los Grissom [facility] June 30, 2023 10:45am Note Date/Time June 30, 2023 10 :26am [facility] [address] [place] [address] Nephrology Consult Note Signed Patient: Mabel Moser MR#: [id number] : 1960 Acct:[id number] Age/Sex: 63 / F Adm Date: 4 Loc: Room: [address] [place] [address] Type: ADM IN Attending Dr: Jim Randhawa [...] no additional complaints, except as documented [facility] Medical History CAD (coronary artery disease) [place] filter in place Hypertension Surgical History History [...] 21:34 Albuterol (Albuterol Neb 2.5 Mg/3 Ml Vial.Edwardo) 2.5 mg INHALATION Q3H PRN PRN Reason: [...] Mg/4 Ml Vial) 1 mg IV-PUSH BID@0800,1600 [facility] Stop: 06/29/24 07:59 Last Admin: 06/30/23 [...] 100 Mcg/Hour Patch.Td72) 100 mcg TRANSDERML Q72H [facility]; Protocol Last Admin: 06/30/23 09:31 Dose: 100 mcg Ferrous Sulfate (Ferrous Sulfate 324 Mg Tablet.) 324 mg PO DAILY [facility] Stop: 06/29/24 08:59 Last Admin: 06/30/23 09:31 Dose: 324 mg Gabapentin (Gabapentin 100 Mg Capsule) 100 mg PO TID [facility] Stop: 06/29/24 08:59 Last Admin: 06/30/23 09:31 Dose: 100 mg Guaifenesin/Dextromethorphan (Guaif/Dextromethorphan Syrup 10 Ml Udc) 10 ml PO Q8H PRN PRN Reason: Cough Stop: 06/28/24 21:34 Heparin Sodium (Porcine) (Heparin 5,000 Unit/Ml Vial) 5,000 unit SUBCUT Q12HR [facility] Stop: 06/29/24 08:59 Last Admin: 06/30/23 09:32 Dose: 5,000 unit Levothyroxine Sodium (Levothyroxine 100 Mcg Tablet) 100 mcg PO DAILY@0630 [facility] Stop: 06/29/24 06:29 Last Admin: 06/30/23 05:55 Dose: 100 mcg Linaclotide (Linaclotide 290 Mcg Capsule) 290 mcg PO Q48HR [facility] Stop: 06/29/24 08:59 Last Admin: 06/30/23 09:33 Dose: 290 mcg Liothyronine Sodium (Liothyronine 25 Mcg Tablet) 25 mcg PO DAILY [facility] Stop: 06/29/24 08:59 Loratadine (Loratadine 10 [...] 50 Mg Tablet) 100 mg PO HS [facility] Stop: 06/29/24 21:59 Sevelamer Carbonate (Sevelamer Carbonate [...] <Electronically signed by MD Los Grissom> 06/30/23 1677 [facility] Work Phone: [phone] 122-491601-04-2024 History and physical note Author Baetriz Oh [facility] June 29, 2023 9:51pm Note Date/Time June 29, 2023 9: 47pm [facility] [address] [place] [address] Hospitalist H&P Signed Patient: Mabel Moser MR#: [id number] : 1960 Acct:[id number] Age/Sex: 63 / F Adm Date: 4 Loc: Room: [address] [place] [address] Type: ADM IN Attending Dr: Papito Garces [...] denies having dysuria, hematuria, or frequency. [facility] Medical History CAD (coronary artery disease) Concepcion [...] mg PO BID 08/31/18 [History Confirmed 10/28/22] mmfosran-dvgxbbp-tstf-iron fum 18 mg-folic 600 mcg-vit K 80 [...] TID PRN Edema 10/28/22 [History Confirmed 10/28/22] rxqtjkkwvi-bnqcsxekharee-gyefrdjg 50 mg-325 mg-40 mg capsule 1 cap [...] signed by Beatriz Oh MD> 06/29/23 215 [facility] Work Phone: 1([phone]) [phone] Evaluation note* Encounter Date Diagnosis Assessment Notes [...] G43.519) Advised the patient to follow with [facility] neurology clinic Mar, Chronic kidney disea se, [...] (ICD-10 - E83.39) Continue Phos[employer] with meals [employer] Other [id number] NoteRemains stable without worsening symptomsUnUniversity Hospitals St. [facility]08-30-2023 NoteCoronary artery disease is stable Continue GDMT continue risk factor modifications- heart healthy diet, regular exercise as tolerated and continue all medications.[facility] 02-22-2023 NoteNYHC II Continue GDMT- entresto- metoprolol and aldactone have been dc's r/t hypotension. Diuretic therapy- bumex 2 mg bid- Monitor daily weights, I&O, fluid restriction 1.5-2L/day, renal function and electrolytes- please maintain K+>4 and Mg > 2UnUniversity Hospitals St. [facility] 02-22-2023 NoteRCRI- 0???points Class I Risk 3.9???% 30-day risk of , HI, or cardiac arrest From a cardiology perspective pt may proceed with Total knee arthroplasty with Dr Dennis, she is a low to moderate risk for a low to mod risk orthopedic surgery. She does not take any Aspirin, or anticoagulation. Please monitor hemodynamics carefully and prevent any major fluid shifts.[facility]08-30-2023 NoteUTP CARDIOLOGY PROGRESS NOTE HPI: Mabel Moser is a 62 y.o. female here for pre surgery risk stratification Patient here for 2 mo follow up pulmonary hypertension and hypertension. She was admitted to [facility] twice this past month. She needs cleared [...] is alert and or (more content not included)...[facility]08-30-2023 NotePatient here for 2 mo follow up pulmonary hypertension and hypertension. She was admitted to [facility] twice this past month. She needs cleared for knee replacement surgery with Dr. Dennis. Denies chest pain, lightheadedness, and palpitations. Says SOB is improving. Review of Systems Constitutional: Positive for malaise/fatigue. Cardiovascular: Positive for dyspnea on exertion (improving). Musculoskeletal: Positive for arthritis, back pain and joint pain. All other systems reviewed and are negative.[facility] 02-16-2023 NoteSubjective: Patient ID: Mabel Moser [...] History: Diagnosis Date CHF (congestive heart failure) ([facility]) Coronary artery disease Heart valve disease There [...] intact to light touch distally Imaging: Where: [place] Date: 01/13/2023 x-ray left knee(s) : Images [...] surgery patient requested to proceed with surgery. Oenal Downey, [facility] 02/16/23 As the teaching physician, I have personally performed or re-performed the history of present illness, physical exam and medical decision-making activities of the encounter and verified the medical student's documentation. I made pertinent changes as necessary to ensure accurate documentation. Additional Comments: [facility]07-21-2023 NoteData Mabel Hellermadeline 1960 Chief Complaint Patient presents with Left [...] physical therapy specifically wasdoing aquatic therapy, at [facility] with mild improvement. patient has had injections in the past, and did have some improvement however feels that getting significant improvement with these. She is interested in considering surgical intervention. Of Note, she did have a R. Total knee arthroplasty about 8 years at [facility]. Patient is also complaining of Left hip pain that worsened about a year ago after she had a fall. She did have x-rays completed after this, and was told that she had a chip off of her bone. . She saw Dr. Barajas at [facility] who recommended continiues conservative management. Hip pain rated as a 4-5/10. Most of her pain on the outer aspect of the hip. No prior injections or focused PT for the hip. Past Medical History: Diagnosis Date CHF (congestive heart failure) ([facility]) Coronary artery disease Heart valve disease History [...] in detail including differentia (more content not included)...[facility]06-22-2023 Note [place] Cardiology - [facility] Subjective Mabel Moser is a [...] In the past she was admitted to [facility] in 2019 with fluid overload and [...] not ill-appearing. HENT: H (more content not included)...[facility]06-07-2023 NotePt insists right subclavian chest port is accessed for procedure. 4CD RN at bedside to access. RN is not able to access. 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 / [facility] VASCULAR [facility] (Cath) Providers: Benjie [...] discussed with fellow. Additional Equipment RequestsUnUniversity Hospitals St. John Medical [facility]05-15-2023 Note [place] Cardiology - [facility] Subjective Mabel Moser is a 62 y.o. year old female patient being seen for 2 week follow up per Sofie Bernard CNP. She says since she was last seen on 10/28, Dr. Santana increased her Entresto to 97-103mg bid, metoprolol to 50mg TID, and hydralazine to 100mg TID. Says she was in [facility] ED again last Monday with a BP [...] In the past she was admitted to [facility] in 2019 with fluid overload and [...] is no distension. Pal (more content not included)...[facility]05-05-2023 NoteHeadaches today and to be evaluated in ED- worst H/A I have ever had. [facility]05-05-2023 NoteCoronary artery disease is stable Continue GDMTUnUniversity Hospitals St. John Medical Center05-05-2023 NoteHypertension is uncontrolled with c/o worst headache ever- recommended pt to be evaluated in EDUniMer[facility]05-05-2023 NoteContinue to monitor with echoUnUniversity Hospitals St. [facility]05-05-2023 NoteNYHC- IV- SOB with rest [...] 1.68/BUN 45 at admit was 1.23/ 38 [facility]05-05-2023 NoteUTP CARDIOLOGY PROGRESS NOTE HPI: Mabel Moser is a 62 y.o. female here for hospital f/u Patient here for follow up [facility] ED on 10/24/2022 for fluid overload. She [...] in the morning, afternoon, and at bedtime. loionikpyf-jqnboscmyzrrp-vjpt (Esgic) 50-325-40 mg capsule jefdlwwquz-oilbtegekiyce-aqmhxuvb 50 mg-325 mg-40 mg capsule butorphanol (Stadol) [...] hypertension Hypertension is uncontrolle (more content not included)...[facility]05-05-2023 NotePatient here for follow up [facility] ED on 10/24/2022 for fluid overload. She [...] light-headedness. All other systems reviewed and are negative.[facility] 10-10-2022 NoteNew patient here to re-establish care. She was last seen in [address] Hidalgo. She was discharged 10/07/2022 from [facility] for fluid overload. Had echo 09/21/2022. Says PCP put her on Entresto a few months ago, and recently decreased her dose due to hyperkalemia per patient. Review of Systems Constitutional: Positive for malaise/fatigue. Cardiovascular: Positive for dyspnea on exertion, leg swelling and palpitations. Musculoskeletal: Positive for arthritis, back pain and joint pain. Neurological: Positive for light-headedness. All other systems reviewed and are negative.[facility] 10-10-2022 NoteCardiovascular Medicine [place] [facility] SUBJECTIVE Chief Complaint Patient presents with Congestive Heart Failure Re-establish care HPI Mabel Moser is a 62 y.o. female here to re-establish care. She was recently discharged from [facility] for fluid overload. Her weight went up [...] She follows with a kidney specialist at [facility]. Her leg swelling has improved but [...] history of obesity s/p bariatric surgery in 2000. She has been admitted in 07/2018 to [facility] with dyspnea, fluid overload and was diuresed. [...] kidney disease) stage 3, GFR 30-59 ml/min ([facility]/H[facility]) Closed fracture of trochanter of femur [...] vitamin B12 deficiency Pulmona (more content not included)...[facility] 09-27-2022 Evaluation note* Encounter Date Diagnosis [...] G43.519) Advised the patient to follow with [facility] neurology clinic [facility] [employer] Other 03-28-2023 NoteThe [facility] [id number] Evaluation note* Encounter Date Diagnosis Assessment Notes Treatment Notes Treatment Clinical Notes Jul, Contusion of right wrist, initial encounter (ICD-10 - S60.211A) Patient placed in cock up wrist splint. Activities 2-5 lbs ADLs [employer] Other 12-13-2022 NoteThe [facility] [id number] NoteThe [facility] [id number] NoteThe [facility] [id number] Evaluation note * Encounter Date Diagnosis Assessment [...] pressure. Advised the patient to follow-up with [facility] neurology clinic I will try to reach to Dr. Santana's office about fludrocortisone I would continue same blood pressure medications. Advised the patient to follow a low-salt diet and to monitor her blood pressure at home Mar, Migraine aura, persistent, intractable (ICD-10 - G43.519) Advised the patient to follow with [facility] neurology clinic [employer] Other 08-04-2022 NoteThe [facility] [id number] NoteThe [facility] [id number] Evaluation note* Encounter Date Diagnosis Assessment Notes [...] off all diuretics metolazone, spironolactone and bumetanide. [employer] Other Discharge summary Author Jim Randhawa [facility] July 03, 2023 3:03pm Note Date/Time July 03, 2023 2: 55pm [facility] [address] [place] [address] Discharge Summary Signed Patient: Mabel Moser MR#: [id number] : 1960 Acct:[id number] Age/Sex: 63 / F Adm Date: 4 Loc: Room: [address] [place] [address]: Jim Randhawa DO Copies to: [...] signed by Jim Randhawa DO> 07/03/23 1503 [facility] Work Phone: Evaluation noteNo assessment information available [facility] Work Phone: Evaluation noteNo InformationNort [employer] Other Evaluation note* Diagnosis Onset Date Resolution Status Acute heart failure acute RENETTA (acute kidney injury) ac [place] Anemia chronic CKD (chronic kidney disease) stage 3, GFR 30-59 ml/min chronic Hypertension chronic [facility] Work Phone: History general Narrative - [...] History COVID 05/2020 Hospitalization History COVID 04/2021 [employer] Other history general Narrative - Reported* Type [...] History COVID 05/2020 Hospitalization History COVID 04/2021 [employer] Other history general Narrative - Reported* Type [...] 04/2021 Hospitalization History ELEVATED POTASSIUM LEVEL 09/19/2022 [employer] Other Hospital Discharge instructions Additional Instructions Home health to manage: - PT/OT to eval and treat - Monitor VS routine - Dx. HTN - CHF assessments/education - Urinary assessments - Dx. CKD on RENETTA - Fall precautions - [facility] Work Phone: Summary Purpose Family History No [...] CREATED AUTHOR AUTHOR'S ORGANIZ ATION 07/24/2021 [facility] DATE CREATED AUTHOR AUTHOR'S ORGANIZ ATION 01/17/2022 [facility] DATE CREATED AUTHOR AUTHOR'S ORGANIZ ATION 12/05/2022 [facility] DATE CREATED AUTHOR AUTHOR'S ORGANIZ ATION 02/10/2023 [facility] DATE CREATED AUTHOR AUTHOR'S ORGANIZ ATION 08/04/2023 [facility] DATE CREATED AUTHOR AUTHOR'S ORGANIZ ATION 08/23/2023 [facility] DATE CREATED AUTHOR AUTHOR'S ORGANIZ ATION 10/19/2023 [facility] DATE CREATED AUTHOR AUTHOR'S ORGANIZ ATION 11/19/2023 [facility] REASON FOR VISIT (unrecogniz ed section and [...] BE BASED ON THE PRIMARY CLINICAL RECORDS. [employer] provides no warranty or guarantee of the accuracy or completeness of information in this document.
--- NOTE | 2023-12-14 00:31 | CT_ITS ---
The [address] [address] Patient Name: JOSE CLEMENTS MRN: [id number] date: 1960 Sex: F Assigned Patient Location: ER Current Patient Location: Accession/Order Number: [id number] Exam Date: 12/14/2023 00:54 Report Date: 12/14/2023 01:55 At the request of: RHIANNON MARKER Procedure: CT head/brain wo con EXAM: CT head/brain wo con, CT cervical spine wo con INDICATION: 63 years old; Female. Closed head trauma. Patient taking Eliquis. History of C1 fracture. TECHNIQUE: CT Head (ax/cor/sag reformats). Ionizing radiation dose reduced via iterative reconstruction/FBP blend and body size kV/mA adjustment. Comparison: Head CT dated 10/12/2023. FINDINGS: POSTOPERATIVE CHANGES: None. BRAIN PARENCHYMA: No intraparenchymal or extra-axial hemorrhage. No mass effect. No midline shift or herniation. Dilated perivascular space versus an old lacunar infarction in the lentiform nucleus on the right. Subtle patchy low-density in the white matter without mass effect. VENTRICLES/EXTRA-AXIAL SPACES: Normal for patient's age. SINUSES/MASTOIDS: Sinus are clear. Maxillary sinuses are not completely included. Mastoids and middle ears are clear. MSK: No displaced or depressed calvarial fracture. There is extracranial soft tissue swelling in the left supraorbital and frontal region. No subjacent calvarial fracture is seen. Hyperostosis frontalis is present. OTHER: No hyperdense intraluminal thrombus. Vascular calcifications are present. TECHNIQUE: CT imaging of the cervical spine was performed. IV contrast: None. Dose reduction techniques were achieved by using automated exposure control and/or adjustment of mA and/or kV according to patient size and/or use of iterative reconstruction technique. COMPARISON: Cervical CT dated 11/11/2023. Cervical CT dated 09/29/2023. FINDINGS: POSTOPERATIVE CHANGES: None. ALIGNMENT: Nonspecific straightening of the normal cervical curve. COMPRESSION FRACTURES: There is no change in the appearance of the fractures involving the base of the dens and left side of the lateral mass of C2 as compared to the prior examination. There is lateral subluxation of the right lateral mass of C1 which is unchanged as compared to the prior examination. On the sagittal images, there is slight posterior displacement of the dens in relation the body of C2. This is new as compared to the prior study. There is 2.16 mm of posterior displacement of the dens in relation to the body of C2. There is no change in the relationship of the anterior arch of C1 and the fragment of the dens. There is stable appearance of the relationship of the occipital condyles, lateral masses of C1 as compared to the prior study. No new fracture is seen. No asymmetric widening of the facets is otherwise noted. PREVERTEBRAL SOFT TISSUES: Normal. CRANIOCERVICAL JUNCTION: Please see the discussion above. POSTERIOR FOSSA: Cerebellar tonsils are above the foramen magnum. There is thickening of the transverse ligament which narrows the CSF space anterior the cord. This is unchanged from the prior study. Disc levels: C2-C3: No disc herniation. No spinal canal or foraminal narrowing. C3-C4: No disc herniation. No spinal canal or foraminal narrowing. C4-C5: Facet degeneration. Central canal patent. Neural foramina patent. C5-C6: Facet degeneration. Grade 1 degenerative spondylolisthesis. Central canal patent. Neural foramina patent. C6-C7: Beam hardening artifacts. Disc space narrowing. Vertebral endplate degeneration with chronic Schmorl's node formation. Anterior osteophytes. Uncovertebral joint degeneration on the right. Central canal is patent. Mild right foraminal stenosis. C7-T1: Disc space narrowing. Vertebral endplate degeneration with chronic Schmorl's node formation. Central canal patent. Neural foramina patent. Anterior osteophyte formation. UPPER THORACIC SPINE: Disc space narrowing anteriorly with anterior osteophytes at T1-T2 and T2-T3. Central canal patent. Neural foramina patent. OTHER: No thyroid nodule or adenopathy. CT/CT head/brain wo con IMPRESSION: 1. No acute intracranial abnormality. No hemorrhage or mass effect. 2. Dilated perivascular space versus old lacunar infarction on the right. 3. Nonspecific white matter changes. 4. Extracranial soft tissue swelling in the left supraorbital/frontal region. 5. Vascular calcification. 6. Redemonstration of the fracture of the base of the dens and left-sided body of C2 with subluxation of the right lateral mass of C1 and relation the articular surfaces of C2. There is new mild posterior displacement of the dens in relation the body of C2 as compared to the earlier study. 7. No new fractures are otherwise appreciated. A telephone call regarding the findings in the examinations including the new displacement of the dens fracture in relation the body of C2 was made to and acknowledged by Dr. Curiel in the emergency department at 1:55 AM on 12/14/2023. Electronically authenticated by: MIGEL APARICIO Date: 12/14/2023 01:55
--- NOTE | 2023-12-14 00:31 | CT_ITS ---
The [address] [address] Patient Name: JOSE CLEMENTS MRN: [id number] date: 1960 Sex: F Assigned Patient Location: ER Current Patient Location: Accession/Order Number: [id number] Exam Date: 12/14/2023 00:54 Report Date: 12/14/2023 01:55 At the request of: RHIANNON MARKER Procedure: CT cervical spine wo con EXAM: CT head/brain wo con, CT cervical spine wo con INDICATION: 63 years old; Female. Closed head trauma. Patient taking Eliquis. History of C1 fracture. TECHNIQUE: CT Head (ax/cor/sag reformats). Ionizing radiation dose reduced via iterative reconstruction/FBP blend and body size kV/mA adjustment. Comparison: Head CT dated 10/12/2023. FINDINGS: POSTOPERATIVE CHANGES: None. BRAIN PARENCHYMA: No intraparenchymal or extra-axial hemorrhage. No mass effect. No midline shift or herniation. Dilated perivascular space versus an old lacunar infarction in the lentiform nucleus on the right. Subtle patchy low-density in the white matter without mass effect. VENTRICLES/EXTRA-AXIAL SPACES: Normal for patient's age. SINUSES/MASTOIDS: Sinus are clear. Maxillary sinuses are not completely included. Mastoids and middle ears are clear. MSK: No displaced or depressed calvarial fracture. There is extracranial soft tissue swelling in the left supraorbital and frontal region. No subjacent calvarial fracture is seen. Hyperostosis frontalis is present. OTHER: No hyperdense intraluminal thrombus. Vascular calcifications are present. TECHNIQUE: CT imaging of the cervical spine was performed. IV contrast: None. Dose reduction techniques were achieved by using automated exposure control and/or adjustment of mA and/or kV according to patient size and/or use of iterative reconstruction technique. COMPARISON: Cervical CT dated 11/11/2023. Cervical CT dated 09/29/2023. FINDINGS: POSTOPERATIVE CHANGES: None. ALIGNMENT: Nonspecific straightening of the normal cervical curve. COMPRESSION FRACTURES: There is no change in the appearance of the fractures involving the base of the dens and left side of the lateral mass of C2 as compared to the prior examination. There is lateral subluxation of the right lateral mass of C1 which is unchanged as compared to the prior examination. On the sagittal images, there is slight posterior displacement of the dens in relation the body of C2. This is new as compared to the prior study. There is 2.16 mm of posterior displacement of the dens in relation to the body of C2. There is no change in the relationship of the anterior arch of C1 and the fragment of the dens. There is stable appearance of the relationship of the occipital condyles, lateral masses of C1 as compared to the prior study. No new fracture is seen. No asymmetric widening of the facets is otherwise noted. PREVERTEBRAL SOFT TISSUES: Normal. CRANIOCERVICAL JUNCTION: Please see the discussion above. POSTERIOR FOSSA: Cerebellar tonsils are above the foramen magnum. There is thickening of the transverse ligament which narrows the CSF space anterior the cord. This is unchanged from the prior study. Disc levels: C2-C3: No disc herniation. No spinal canal or foraminal narrowing. C3-C4: No disc herniation. No spinal canal or foraminal narrowing. C4-C5: Facet degeneration. Central canal patent. Neural foramina patent. C5-C6: Facet degeneration. Grade 1 degenerative spondylolisthesis. Central canal patent. Neural foramina patent. C6-C7: Beam hardening artifacts. Disc space narrowing. Vertebral endplate degeneration with chronic Schmorl's node formation. Anterior osteophytes. Uncovertebral joint degeneration on the right. Central canal is patent. Mild right foraminal stenosis. C7-T1: Disc space narrowing. Vertebral endplate degeneration with chronic Schmorl's node formation. Central canal patent. Neural foramina patent. Anterior osteophyte formation. UPPER THORACIC SPINE: Disc space narrowing anteriorly with anterior osteophytes at T1-T2 and T2-T3. Central canal patent. Neural foramina patent. OTHER: No thyroid nodule or adenopathy. CT/CT cervical spine wo con IMPRESSION: 1. No acute intracranial abnormality. No hemorrhage or mass effect. 2. Dilated perivascular space versus old lacunar infarction on the right. 3. Nonspecific white matter changes. 4. Extracranial soft tissue swelling in the left supraorbital/frontal region. 5. Vascular calcification. 6. Redemonstration of the fracture of the base of the dens and left-sided body of C2 with subluxation of the right lateral mass of C1 and relation the articular surfaces of C2. There is new mild posterior displacement of the dens in relation the body of C2 as compared to the earlier study. 7. No new fractures are otherwise appreciated. A telephone call regarding the findings in the examinations including the new displacement of the dens fracture in relation the body of C2 was made to and acknowledged by Dr. Curiel in the emergency department at 1:55 AM on 12/14/2023. Electronically authenticated by: MIGEL APARICIO Date: 12/14/2023 01:55
--- NOTE | 2023-12-14 00:32 | XR_ITS ---
The [address] [address] Patient Name: JOSE CLEMENTS MRN: [id number] date: 1960 Sex: F Assigned Patient Location: ER Current Patient Location: Accession/Order Number: [id number] Exam Date: 12/14/2023 00:54 Report Date: 12/14/2023 02:03 At the request of: RHIANNON MARKER Procedure: XR knee LT 3V EXAM: XR knee LT 3V HISTORY: left knee pain s/p fall COMPARISON: None. TECHNIQUE: 3 views obtained. Lateral view obtained crosstable. FINDINGS: No acute fracture, subluxation or dislocation. Tricompartment osteoarthritis with more severe medial compartment joint space loss and osteophyte formation fall patellofemoral joint. Slight varus angulation. Mild osseous demineralization. No destructive or blastic bone process or joint effusion. There is diffuse soft tissue edema. Patient has known chronic lymphedema. Large body habitus. Osseous demineralization. XR/XR knee LT 3V IMPRESSION: 1. No acute bone or joint findings. 2. Osteoarthritis with chronic lymphedema. Electronically authenticated by: MELISSA CAR Date: 12/14/2023 02:03
--- NOTE | 2023-12-14 00:40 | PC.NURSE ---
Patient to ED with c/o neck pain, lumbar spine pain and left knee pain after falling out of her recliner when she tried to stand up and slipped on the floor where there was drainage from her legs on the floor. She has known lymphedema and her legs were not wrapped. She takes 2.5mg Eliquis BID. There is a hematoma to her forehead. She arrives wearing a c-collar that she had at her home from earlier this year when she had a previous neck fracture. She states that is why she came to the ED tonight, because she is afraid to have broken her neck again. she says that she was unable to get herself up off of the floor after she fell, she had to call her daughter to come lift her up so she could come to the ED. She says she did not take anything for pain prior to coming to the ED, but she does have a Fentanyl patch to her left upper arm. Her legs remain unwrapped and are still leaking fluid at this time.
--- NOTE | 2023-12-14 01:46 | ED.NECK1 ---
HPI HPI - Neck Pain/Injury General Chief Complaint: Neck Pain/Injury Stated Complaint: FALL Time Seen by Provider: 12/14/23 00:14 Source: patient Mode of arrival: Wheelchair Limitations: physical limitation History of Present Illness HPI Narrative: This 63-year-old female who is on Eliquis and is recovering from a C1 fracture who recently stopped wearing her [place] collar and was being followed by Dr. Saint Daniel, orthopedic and spine surgeon presents for evaluation. The patient states she was sitting in her chair and she has lymphedema. The back of her left leg was leaking serous fluid onto the floor. She got up to go to the bedroom and slipped on the serous fluid and fell forward striking her head on the floor. She states she has a frontal headache and neck pain. She has no upper or lower extremity weakness. She also landed on her left knee. She denies loss of consciousness. She does have a fentanyl patch that she is wearing. Her daughter was called to help get her up off of the floor and she reapplied her [place] collar. She was brought to the emergency department by her . Related Data Home Medications ?Medication ?Instructions ?Recorded ?Confirmed alprazolam 0.5 mg tablet 0.5 mg PO BID PRN anxiety 12/08/22 12/12/23 amitriptyline 150 mg tablet 300 mg PO BEDTIME 12/08/22 12/12/23 calcium acetate(phosphat bind) 667 667 mg PO BID 12/08/22 12/12/23 mg capsule levothyroxine 100 mcg tablet 100 mcg PO DAILY 12/08/22 12/12/23 linaclotide 290 mcg capsule 290 mcg PO DAILY 12/08/22 12/12/23 (Linzess) oxycodone-acetaminophen 5 mg-325 2 tab PO Q6H PRN pain 12/08/22 12/12/23 mg tablet primidone 50 mg tablet 150 mg PO BEDTIME 12/08/22 12/12/23 tizanidine 4 mg tablet (Zanaflex) 4 mg PO Q6H PRN muscle spasticity 12/08/22 12/12/23 aripiprazole 2 mg tablet (Abilify) 2 mg PO DAILY 01/23/23 12/12/23 bumetanide 1 mg tablet 3 mg PO Q12H PRN SWELLING 01/23/23 12/12/23 spironolactone 50 mg tablet 50 mg PO DAILY PRN swelling 01/24/23 12/12/23 (Aldactone) butorphanol 10 mg/mL nasal spray 1 spray intranasal .QD PRN pain 02/03/23 12/12/23 apixaban 2.5 mg tablet (Eliquis) 2.5 mg PO BID 07/20/23 12/12/23 azelastine 0.05 % eye drops 1 drp ophthalmic (eye) DAILY 09/29/23 12/12/23 desvenlafaxine succinate 50 mg 50 mg PO DAILY 09/29/23 12/12/23 tablet,extended release 24 hr diclofenac sodium 1 % topical gel 2 g topical .QD PRN 09/29/23 12/12/23 PAIN/INFLAMMATION doxepin 10 mg capsule 10 mg PO BID 09/29/23 12/12/23 escitalopram oxalate 20 mg tablet 20 mg PO DAILY 09/29/23 12/12/23 pantoprazole 40 mg tablet,delayed 40 mg PO DAILY 09/29/23 12/12/23 release fentanyl 100 mcg/hr transdermal 1 patch transdermal Q72H 10/12/23 12/12/23 patch liothyronine 25 mcg tablet 25 mcg PO .qd 10/23/23 12/12/23 pramipexole 1 mg tablet 1 mg PO .qd 10/23/23 12/12/23 spironolactone 100 mg tablet 100 mg PO BID 10/23/23 12/12/23 sacubitril 24 mg-valsartan 26 mg 4 tab PO DAILY 11/11/23 12/12/23 tablet (Entresto) Allergies Allergy/AdvReac Type Severity Reaction Status Date / Time povidone-iodine Allergy Intermediate Verified 12/14/23 00:19 [From Betadine] amoxicillin [From Augmentin] Allergy Mild Vomiting Verified 12/14/23 00:19 clavulanic acid Allergy Mild Vomiting Verified 12/14/23 00:19 [From Augmentin] Sulfa (Sulfonamide Allergy Mild Vomiting Verified 12/14/23 00:19 Antibiotics) ciprofloxacin [From Cipro] Allergy Unknown Verified 12/14/23 00:19 Opioid HPI Opioid Management Most Recent Opioid Data: Last Pain Scale 5 12/14/23 00:36 Last ORT Total Score 0 10/23/23 12:31 Last ORT Risk Category Low Risk 04/29/24 12:31 Review of Systems ROS Status of ROS 10 or more systems reviewed and unremarkable except as noted in history and below [facility] Medical History (Updated 12/14/23 @ 02:25 by Jenifer Curiel MD) Chronic kidney disease ?N18.9 - Chronic kidney disease, unspecified (ICD-10) Acute kidney injury ?N17.9 - Acute kidney failure, unspecified (ICD-10) Edema of lower leg due to peripheral venous insufficiency ?I87.2 - Venous insufficiency (chronic) (peripheral) (ICD-10) ?R60.0 - Localized edema (ICD-10) Depression ?F32.A - Depression, unspecified (ICD-10) Gastroenteritis ?K52.9 - Noninfective gastroenteritis and colitis, unspecified (ICD-10) Migraine without aura and without status migrainosus, not intractable ?G43.009 - Migraine without aura, not intractable, without status migrainosus (ICD-10) Chronic heart failure with preserved ejection fraction (HFpEF) ?I50.32 - Chronic diastolic (congestive) heart failure (ICD-10) Chest pain ?R07.9 - Chest pain, unspecified (ICD-10) Dyspnea ?R06.00 - Dyspnea, unspecified (ICD-10) Fluid overload ?E87.70 - Fluid overload, unspecified (ICD-10) Osteoarthritis ?M19.90 - Unspecified osteoarthritis, unspecified site (ICD-10) Anemia ?D64.9 - Anemia, unspecified (ICD-10) Anxiety ?F41.9 - Anxiety disorder, unspecified (ICD-10) Stroke ?I63.9 - Cerebral infarction, unspecified (ICD-10) Acid reflux ?K21.9 - Gastro-esophageal reflux disease without esophagitis (ICD-10) Hypothyroid ?E03.9 - Hypothyroidism, unspecified (ICD-10) Kidney failure ?N19 - Unspecified kidney failure (ICD-10) COPD (chronic obstructive pulmonary disease) ?J44.9 - Chronic obstructive pulmonary disease, unspecified (ICD-10) Asthma ?J45.909 - Unspecified asthma, uncomplicated (ICD-10) CHF (congestive heart failure) ?I50.9 - Heart failure, unspecified (ICD-10) Irregular heart beat ?I49.9 - Cardiac arrhythmia, unspecified (ICD-10) HTN (hypertension) ?I10 - Essential (primary) hypertension (ICD-10) Heart attack ?I21.9 - Acute myocardial infarction, unspecified (ICD-10) Lumbar spondylosis ?M47.816 - Spondylosis without myelopathy or radiculopathy, lumbar region (ICD-10) Surgical History H/O hysterectomy with oophorectomy H/O gastric bypass ?Z98.84 - Bariatric surgery status (ICD-10) History of hernia repair ?Z98.890 - Other specified postprocedural states (ICD-10) ?Z87.19 - Personal history of other diseases of the digestive system (ICD-10) History of rotator cuff surgery ?Z98.890 - Other specified postprocedural states (ICD-10) History of right knee joint replacement ?Z96.651 - Presence of right artificial knee joint (ICD-10) History of appendectomy ?Z90.49 - Acquired absence of other specified parts of digestive tract (ICD-10) Hx of cholecystectomy ?Z90.49 - Acquired absence of other specified parts of digestive tract (ICD-10) Family History Father Family history of CHF (congestive heart failure) Family history of diabetes mellitus Family history of hypertension Family history of myocardial infarction Family history of stroke Mother Family history of CHF (congestive heart failure) Family history of COPD (chronic obstructive pulmonary disease) Family history of diabetes mellitus Family history of hypertension Family history of myocardial infarction Family history of stroke Social History Within the past year, how often did you have a drink containing alcohol: never Within the past year, how often did you have six or more drinks on one occasion: never Score interpretation: A score less than 3 is consistent with normal alcohol consumption. 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 Highest level of school completed/degree received: some college, no degree Are you now , , , , never or living with a partner: In a typical week, how many times do you talk on the telephone with family, friends, or neighbors: 3 or more times per week How often do you get together with friends or relatives: twice per week How often do you attend latter day or rastafari services: 4 or more times per year Do you belong to any clubs or organizations such as latter day groups unions, fraternal or athletic groups, or school groups: no Total score: 3 Score interpretation: A score of greater than or equal to 2 indicates the lowest level of social isolation. Little interest or pleasure in doing things: not at all Feeling down, depressed, or hopeless: several days Feel stressed/tense/nervous/anxious/difficulty sleeping: to some extent Life stressors: recent of family or friend Do you think of yourself as: straight/heterosexual Gender Identity: female Exam Constitutional Vital Signs, click to edit/add: Last Vital Signs Temp 97.6 F 12/14/23 00:13 Pulse 77 12/14/23 00:13 Resp 16 12/14/23 00:13 BP 107/57 12/14/23 00:13 Pulse Ox 10 L 12/14/23 00:13 O2 Del Method Room Air 12/14/23 00:13 Course Vital Signs Vital signs: Vital Signs Temperature 97.6 F 12/14/23 00:13 Pulse Rate 77 12/14/23 00:13 Respiratory Rate 16 12/14/23 00:13 Blood Pressure 107/57 12/14/23 00:13 Pulse Oximetry 10 L 12/14/23 00:13 Oxygen Delivery Method Room Air 12/14/23 00:13 Temperature 97.6 F 12/14/23 00:13 Pulse Rate 77 12/14/23 00:13 Respiratory Rate 16 12/14/23 00:13 Blood Pressure 107/57 12/14/23 00:13 Pulse Oximetry 10 L 12/14/23 00:13 Oxygen Delivery Method Room Air 12/14/23 00:13 MDM - Neck Pain/Injury MDM Narrative Medical decision making narrative: This 63-year-old female who is on Eliquis and is recovering from a cervical fracture that she sustained after falling and 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 The patient has lymphedema and her legs were leaking onto her hardwood floors. She states she got up to go to bed from her chair and slipped on the fluid on the floor and fell forward striking her head and left knee on the floor. She denies any loss of consciousness. She had knee pain after her fall and pain in her neck and replaced her [place] collar that she was recently able to stop using. Her daughter helped get her up from the floor and her drove her to the emergency department. She has a hematoma on her forehead. Her [place] collar was not removed. She has no upper or lower extremity weakness numbness or new neurologic symptoms. Her GCS is 15. She does have lower extremity swelling and edema with some mild clear drainage from the left posterior leg. She was medicated with a dose of Percocet. She does have a fentanyl patch on. CT scan of the brain and cervical spine was ordered. CT scan scan of the brain is negative for acute findings and CT scan of the cervical spine which is included in the body of this report shows lateral subluxation of the right lateral mass of C1 which is unchanged as compared to the prior examination and on the sagittal images there is slight posterior displacement of the dens in relation to the body of C2 which is new compared to the prior study. It was noted that there is a 2.16 mm of posterior displacement of the dens in relation to the body of C2 with no change in the relationship of the anterior arch of C1 and the fragment of the dens. There is a stable appearance of the relationship of the occipital condyles, lateral masses of C1 as compared to the prior study and no new fracture. No asymmetric widening of the facets was otherwise observed. The approach prevertebral soft tissues were normal. The results of the CT scan was discussed with CAR Rios for Dr Morgan, orthopedic and spine surgeon. He suggest that the patient be discharged home and is to wear her [place] collar at all times until she can be seen in follow-up in their clinic. This was relayed to the patient and her who verbalized understanding. She feels comfortable being discharged home. She has pain medications at home that have been prescribed by Dr. Godinez. She was encouraged to return to the emergency department for any new or worsening upper or lower extremity weakness numbness tingling, severe headache, change in mental status or any other concerns. The patient and her are in agreement with this plan. The patient's legs were wrapped prior to her discharge to help with the serous leakage of fluids due to her lymphedema. Medical Records Medical records narrative: The [address] [address] [address] Scan Report Signed Patient: JOSE CLEMENTS MR#: [id number] : 1960 Acct:[id number] Age/Sex: 63 / F ADM Date: 12/14/23 Loc: ER Attending Dr: Ordering Physician: Jenifer Curiel Date of Service: 12/14/23 Procedure(s): CT head/brain wo con Accession Number(s): [id number] cc: Yuri Godinez M.D.~ The [facility] [address], [place] [address] Patient Name: JOSE CLEMENTS MRN: [id number] date: 1960 Sex: F Assigned Patient Location: ER Current Patient Location: ER Accession/Order Number: [id number] Exam Date: 12/14/2023 00:54 Report Date: 12/14/2023 01:55 At the request of: JENIFER CURIEL Procedure: CT head/brain wo con EXAM: CT head/brain wo con, CT cervical spine wo con INDICATION: 63 years old; Female. Closed head trauma. Patient taking Eliquis. History of C1 fracture. TECHNIQUE: CT Head (ax/cor/sag reformats). Ionizing radiation dose reduced via iterative reconstruction/FBP blend and body size kV/mA adjustment. Comparison: Head CT dated 10/12/2023. FINDINGS: POSTOPERATIVE CHANGES: None. BRAIN PARENCHYMA: No intraparenchymal or extra-axial hemorrhage. No mass effect. No midline shift or herniation. Dilated perivascular space versus an old lacunar infarction in the lentiform nucleus on the right. Subtle patchy low-density in the white matter without mass effect. VENTRICLES/EXTRA-AXIAL SPACES: Normal for patient's age. SINUSES/MASTOIDS: Sinus are clear. Maxillary sinuses are not completely included. Mastoids and middle ears are clear. MSK: No displaced or depressed calvarial fracture. There is extracranial soft tissue swelling in the left supraorbital and frontal region. No subjacent calvarial fracture is seen. Hyperostosis frontalis is present. OTHER: No hyperdense intraluminal thrombus. Vascular calcifications are present. TECHNIQUE: CT imaging of the cervical spine was performed. IV contrast: None. Dose reduction techniques were achieved by using automated exposure control and/or adjustment of mA and/or kV according to patient size and/or use of iterative reconstruction technique. COMPARISON: Cervical CT dated 11/11/2023. Cervical CT dated 09/29/2023. FINDINGS: POSTOPERATIVE CHANGES: None. ALIGNMENT: Nonspecific straightening of the normal cervical curve. COMPRESSION FRACTURES: There is no change in the appearance of the fractures involving the base of the dens and left side of the lateral mass of C2 as compared to the prior examination. There is lateral subluxation of the right lateral mass of C1 which is unchanged as compared to the prior examination. On the sagittal images, there is slight posterior displacement of the dens in relation the body of C2. This is new as compared to the prior study. There is 2.16 mm of posterior displacement of the dens in relation to the body of C2. There is no change in the relationship of the anterior arch of C1 and the fragment of the dens. There is stable appearance of the relationship of the occipital condyles, lateral masses of C1 as compared to the prior study. No new fracture is seen. No asymmetric widening of the facets is otherwise noted. PREVERTEBRAL SOFT TISSUES: Normal. CRANIOCERVICAL JUNCTION: Please see the discussion above. POSTERIOR FOSSA: Cerebellar tonsils are above the foramen magnum. There is thickening of the transverse ligament which narrows the CSF space anterior the cord. This is unchanged from the prior study. Disc levels: C2-C3: No disc herniation. No spinal canal or foraminal narrowing. C3-C4: No disc herniation. No spinal canal or foraminal narrowing. C4-C5: Facet degeneration. Central canal patent. Neural foramina patent. C5-C6: Facet degeneration. Grade 1 degenerative spondylolisthesis. Central canal patent. Neural foramina patent. C6-C7: Beam hardening artifacts. Disc space narrowing. Vertebral endplate degeneration with chronic Schmorl's node formation. Anterior osteophytes. Uncovertebral joint degeneration on the right. Central canal is patent. Mild right foraminal stenosis. C7-T1: Disc space narrowing. Vertebral endplate degeneration with chronic Schmorl's node formation. Central canal patent. Neural foramina patent. Anterior osteophyte formation. UPPER THORACIC SPINE: Disc space narrowing anteriorly with anterior osteophytes at T1-T2 and T2-T3. Central canal patent. Neural foramina patent. OTHER: No thyroid nodule or adenopathy. CT/CT head/brain wo con IMPRESSION: 1. No acute intracranial abnormality. No hemorrhage or mass effect. 2. Dilated perivascular space versus old lacunar infarction on the right. 3. Nonspecific white matter changes. 4. Extracranial soft tissue swelling in the left supraorbital/frontal region. 5. Vascular calcification. 6. Redemonstration of the fracture of the base of the dens and left-sided body of C2 with subluxation of the right lateral mass of C1 and relation the articular surfaces of C2. There is new mild posterior displacement of the dens in relation the body of C2 as compared to the earlier study. 7. No new fractures are otherwise appreciated. A telephone call regarding the findings in the examinations including the new displacement of the dens fracture in relation the body of C2 was made to and acknowledged by Dr. Curiel in the emergency department at 1:55 AM on 12/14/2023. Electronically authenticated by: MIGEL APARICIO Date: 12/14/2023 01:55 Discharge Plan Discharge Stand Alone Forms: Portal Instructions Chief Complaint: Neck Pain/Injury Clinical Impression: Fx C2 vertebra-closed, Closed head injury, Fall from standing Patient Disposition: Home, Self-Care Time of Disposition Decision: 02:24 Condition: Good Prescriptions / Home Meds: No Action aripiprazole [Abilify] 2 mg tablet 2 mg PO DAILY bumetanide 1 mg tablet 3 mg PO Q12H PRN (Reason: SWELLING) Hold Instructions: Resume on 02/16/23. until cleared by PCP spironolactone [Aldactone] 50 mg tablet 50 mg PO DAILY PRN (Reason: swelling) butorphanol 10 mg/mL spray,non-aerosol 1 spray INTRANASAL .QD PRN (Reason: pain) Eliquis 2.5 mg tablet 2.5 mg PO BID desvenlafaxine succinate 50 mg tablet extended release 24 hr 50 mg PO DAILY diclofenac sodium 1 % gel 2 g TOPICAL .QD PRN (Reason: PAIN/INFLAMMATION) doxepin 10 mg capsule 10 mg PO BID escitalopram oxalate 20 mg tablet 20 mg PO DAILY pantoprazole 40 mg tablet,delayed release (DR/EC) 40 mg PO DAILY azelastine 0.05 % drops 1 drp OPHTHALMIC (EYE) DAILY fentanyl 100 mcg/hr patch 72 hour 1 patch transdermal Q72H liothyronine 25 mcg tablet 25 mcg PO .qd pramipexole 1 mg tablet 1 mg PO .qd spironolactone 100 mg tablet 100 mg PO BID alprazolam 0.5 mg tablet 0.5 mg PO BID PRN (Reason: anxiety) amitriptyline 150 mg tablet 300 mg PO BEDTIME calcium acetate(phosphat bind) 667 mg capsule 667 mg PO BID levothyroxine 100 mcg tablet 100 mcg PO DAILY Linzess 290 mcg capsule 290 mcg PO DAILY Hold Instructions: Resume on 02/16/23. until diarrhea resolves primidone 50 mg tablet 150 mg PO BEDTIME tizanidine [Zanaflex] 4 mg tablet 4 mg PO Q6H PRN (Reason: muscle spasticity) oxycodone-acetaminophen 5-325 mg tablet 2 tab PO Q6H PRN (Reason: pain) Entresto 24-26 mg Tablet 4 tab PO DAILY Rx Instructions: 91 mg daily Print Language: Montserratian Instructions: Fall Prevention for Older Adults (ED), Head Injury (ED), Cervical Fracture (ED), [place] J Collar (ED) Additional Instructions: Keep your [place] collar in place. Follow up with Dr Morgan as soon as possible. Return to the ED for upper or lower extremity weakness, numbness or any new concerns. Referrals: Yuri Godinez MD [Primary Care Provider] - 1 week
== END 2023-12-14 03:35 | disposition home or self-care (01) ==
PROVIDERS: Emergency Provider Emergency Medicine; PCP Family Medicine
DX: S09.8XXA Other specified injuries of head, initial encounter (principal); S12.110A Anterior displaced Type II dens fracture, initial encounter for closed fracture; W01.198A Fall on same level from slipping, tripping and stumbling with subsequent striking against other object, initial encounter; Z79.01 Long term (current) use of anticoagulants
CPT/HCPCS: 70450; 72125; 73562; 99284

== ENCOUNTER 2023-12-18 10:37 | Outpatient (OUT) | payer MEDICARE, MEDICAID, SELFPAY ==
--- NOTE | 2023-12-18 | XR_ITS ---
The [address] [address] Patient Name: JOSE CLEMENTS MRN: [id number] date: 1960 Sex: F Assigned Patient Location: Current Patient Location: [facility] Accession/Order Number: [id number] Exam Date: 12/18/2023 10:49 Report Date: 12/18/2023 11:59 At the request of: BUNNY MAXWELL Procedure: XR knee LT 4V PROCEDURE: XR knee LT 4V COMPARISON: None. HISTORY: LEFT KNEE PAIN FINDINGS: BONES:No acute fracture or dislocation. Severe tricompartmental osteoarthritis with [id number] articulation and remodeling of the medial joint space SOFT TISSUES:Negative. No visible soft tissue swelling. EFFUSION:None visible. OTHER: Negative. XR/XR knee LT 4V IMPRESSION: Severe osteoarthritis with [id number] articulation medial joint space Electronically authenticated by: CARLOS ALCALA Date: 12/18/2023 11:59
== END 2023-12-18 10:38 | disposition home or self-care (01) ==
LOC: EC 10:37
PROVIDERS: PCP Family Medicine; Visit Provider Orthopaedic Surgery
DX: M25.562 Pain in left knee (principal); M17.12 Unilateral primary osteoarthritis, left knee
CPT/HCPCS: 73564

== ENCOUNTER 2023-12-18 11:27 | Outpatient (RCR) | payer MEDICARE, MEDICAID, SELFPAY ==
[2023-11-30 11:10] VITALS: BP 116/69; PULSE 65; TEMP 36.6; O2SAT 94
[2023-11-30 11:48] LABS: Basophils Percent Auto 0.4 % (0.2-2.0); Eosinophils Absolute Auto 0.2 10^3/uL (0.0-0.7); Eosinophils Percent Auto 2.4 % (0.9-7.0); Hemoglobin 9.2 g/dL (12.0-16.0); Immature Granulocytes Abs Auto 0.03 10^3/uL (0.00-0.03); Immature Granulocytes Pct Auto 0.4 % (0.0-0.5); Lymphocytes Absolute Auto 1.5 10^3/uL (1.2-3.8); Mean Corpuscular HGB Conc 30.7 g/dL (29.9-35.2); Mean Corpuscular Hemoglobin 30.7 pg (26.7-34.0); Mean Platelet Volume 9.5 fL (9.5-13.5); Monocytes Absolute Auto 0.6 10^3/uL (0.3-0.8); Monocytes Percent Auto 7.7 % (1.7-12.0); Neutrophils Absolute Auto 5.2 10^3/uL (1.4-6.5); Neutrophils Percent Auto 69.1 % (43.0-75.0); Platelet Count 308 10^3/uL (150-450); Red Cell Distribution Width 13.6 % (11.0-15.0); White Blood Count 7.5 10^3/uL (4.0-11.0)
--- NOTE | 2023-11-30 11:59 | PC.NURSE ---
1110: Pt. to [facility] amb. for blood draw. Seated in recliner. VSS. Using sterile technique, right ant chest port accessed without difficulty. See documentation. Able to aspirate blood easily for ordered labs. Port flushed with saline and Heparin flush. Port de-accessed. No bleeding to site. Covered with 2x2 dressing. 1128: Pt d/c'd amb to home.
[2023-11-30 12:21] LABS: Alanine Aminotransferase 30 U/L (14-59); Albumin Globulin Ratio 0.9; Albumin Level 3.4 g/dL (3.4-5.0); Alkaline Phosphatase 290 U/L (46-116); Anion Gap 13.7; Aspartate Amino Transferase 32 U/L (15-37); BUN Creatinine Ratio 30.3; Bilirubin Total 0.3 mg/dL (0.2-1.0); Calcium 7.9 mg/dL (8.5-10.1); Carbon Dioxide 27.6 mmol/L (21.0-32.0); Chloride 97 mmol/L (98-107); Estimated GFR (African America 26 (>=60); Estimated GFR (Non-African Ame 22 (>=60); Globulin 3.7 g/dL; Glucose 83 mg/dL (74-106); Potassium 4.3 mmol/L (3.5-5.1); Sodium 134 mmol/L (136-145); Total Protein 7.1 g/dL (6.4-8.2)
[2023-12-07 11:13] VITALS: BP 137/83; PULSE 70; TEMP 36.6; O2SAT 98
[2023-12-07] MEDS: HEPARIN SODIUM (PORCINE) PF LOCK FLUSH 500 UNIT/5 ML SYRINGE IV (11:40)
[2023-12-07 12:31] LABS: Basophils Percent Auto 0.5 % (0.2-2.0); Eosinophils Percent Auto 0.6 % (0.9-7.0); Hematocrit 30.5 % (36.0-48.0); Hemoglobin 9.4 g/dL (12.0-16.0); Immature Granulocytes Abs Auto 0.03 10^3/uL (0.00-0.03); Immature Granulocytes Pct Auto 0.5 % (0.0-0.5); Lymphocytes Absolute Auto 0.8 10^3/uL (1.2-3.8); Lymphocytes Percent Auto 13.2 % (20.5-60.0); Mean Corpuscular HGB Conc 30.8 g/dL (29.9-35.2); Mean Corpuscular Hemoglobin 30.5 pg (26.7-34.0); Mean Platelet Volume 9.5 fL (9.5-13.5); Monocytes Absolute Auto 0.3 10^3/uL (0.3-0.8); Monocytes Percent Auto 5.3 % (1.7-12.0); Neutrophils Absolute Auto 5.1 10^3/uL (1.4-6.5); Neutrophils Percent Auto 79.9 % (43.0-75.0); Platelet Count 307 10^3/uL (150-450); Red Blood Count 3.08 10^6/uL (4.20-5.40); Red Cell Distribution Width 13.5 % (11.0-15.0); White Blood Count 6.4 10^3/uL (4.0-11.0)
[2023-12-07 12:48] VITALS: BP 137/84; PULSE 70; TEMP 36.6; O2SAT 98
[2023-12-07 12:50] LABS: Alanine Aminotransferase 27 U/L (14-59); Albumin Globulin Ratio 0.9; Albumin Level 2.9 g/dL (3.4-5.0); Alkaline Phosphatase 240 U/L (46-116); Anion Gap 12.8; Aspartate Amino Transferase 23 U/L (15-37); BUN Creatinine Ratio 30.6; Bilirubin Total 0.2 mg/dL (0.2-1.0); Calcium 8.1 mg/dL (8.5-10.1); Carbon Dioxide 24.2 mmol/L (21.0-32.0); Chloride 98 mmol/L (98-107); Estimated GFR (African America 27 (>=60); Estimated GFR (Non-African Ame 22 (>=60); Globulin 3.4 g/dL; Glucose 101 mg/dL (74-106); Sodium 130 mmol/L (136-145); Total Protein 6.3 g/dL (6.4-8.2)
[2023-12-18] MEDS: HEPARIN SODIUM (PORCINE) PF LOCK FLUSH 500 UNIT/5 ML SYRINGE IV (11:25)
--- NOTE | 2023-12-18 12:03 | PC.NURSE ---
1120: Pt. to [facility] amb. using walker. Seated in recliner. Pt. with visible bruise to right eye. Relays falling at home last week. Cont. to wear neck brace due to previous fall and fracturing C2. Using sterile technique, right ant. chest port accessed per. this RN. Able to aspirate blood easily from port. Labs obtained. Pt. tolerated without c/o. Port flushed with saline and Heparin 500units IV. Port de-accessed. Pt. tolerated without c/o. 1130: Pt. d/c'd amb. to home per self.
[2023-12-18 12:09] LABS: Basophils Percent Auto 0.3 % (0.2-2.0); Eosinophils Absolute Auto 0.1 10^3/uL (0.0-0.7); Eosinophils Percent Auto 0.8 % (0.9-7.0); Hematocrit 30.8 % (36.0-48.0); Hemoglobin 9.1 g/dL (12.0-16.0); Immature Granulocytes Abs Auto 0.12 10^3/uL (0.00-0.03); Immature Granulocytes Pct Auto 1.1 % (0.0-0.5); Lymphocytes Absolute Auto 1.2 10^3/uL (1.2-3.8); Lymphocytes Percent Auto 10.9 % (20.5-60.0); Mean Corpuscular HGB Conc 29.5 g/dL (29.9-35.2); Mean Corpuscular Hemoglobin 30.4 pg (26.7-34.0); Mean Platelet Volume 9.1 fL (9.5-13.5); Monocytes Absolute Auto 0.8 10^3/uL (0.3-0.8); Monocytes Percent Auto 7.9 % (1.7-12.0); Neutrophils Absolute Auto 8.4 10^3/uL (1.4-6.5); Platelet Count 324 10^3/uL (150-450); Red Blood Count 2.99 10^6/uL (4.20-5.40); Red Cell Distribution Width 14.4 % (11.0-15.0); White Blood Count 10.6 10^3/uL (4.0-11.0)
[2023-12-18 12:33] LABS: Alanine Aminotransferase 25 U/L (14-59); Albumin Globulin Ratio 0.9; Albumin Level 3.4 g/dL (3.4-5.0); Alkaline Phosphatase 271 U/L (46-116); Anion Gap 17.6; Aspartate Amino Transferase 23 U/L (15-37); BUN Creatinine Ratio 33.5; Bilirubin Total 0.3 mg/dL (0.2-1.0); Calcium 8.1 mg/dL (8.5-10.1); Carbon Dioxide 20.6 mmol/L (21.0-32.0); Chloride 99 mmol/L (98-107); Estimated GFR (African America 22 (>=60); Estimated GFR (Non-African Ame 18 (>=60); Globulin 3.7 g/dL; Glucose 99 mg/dL (74-106); Potassium 5.2 mmol/L (3.5-5.1); Sodium 132 mmol/L (136-145); Total Protein 7.1 g/dL (6.4-8.2)
== END 2023-12-22 10:47 | disposition home or self-care (01) ==
LOC: INF 11:27
PROVIDERS: PCP Family Medicine; Visit Provider Family Medicine
DX: M48.062 Spinal stenosis, lumbar region with neurogenic claudication (principal); M54.16 Radiculopathy, lumbar region; M25.562 Pain in left knee; M17.12 Unilateral primary osteoarthritis, left knee; I10 Essential (primary) hypertension; D64.9 Anemia, unspecified; E87.1 Hypo-osmolality and hyponatremia
CPT/HCPCS: 36591; 73564; 80053; 83930; 85025; G0463; J1642

== ENCOUNTER 2023-12-27 08:51 | Outpatient (OUT) | payer MEDICARE, MEDICAID, SELFPAY ==
--- NOTE | 2023-12-27 09:41 | P.CN_ITS ---
Consult Note: HPI Data of Consult Patient: known to practice within the last 3 years Requesting Physician: Louann Jackson NP Primary Care Provider: Yuri Godinez MD Consult Narrative Reason for consult: f/u Narrative: Mabel Moser a pleasant 63 year old female presents for evaluation and management of chronic pain. Today pain 6/10 in right hip, groin, buttocks, and low back. Patient reports >80% improvement from recent caudal ROBSON with Dr David. Patient currently dealing with kidney issues and severe bilateral leg edema, following with PCP and nephrology. Patient is being managed with medications for pain by PCP. Patient has been cleared by Dr Vann for cervical fx. Patient reporting signficant pain improvement ongoing. cc:: CC: Louann Jackson NP Review of Systems ROS Status of ROS 10 or more systems reviewed and unremark able except as noted in history and below Musculoskeletal Reports: back pain, extremity pain and joint pain PFSH PFSH Medical History (Updated 12/14/23 @ 02:25 by Jenifer Curiel MD) Chronic kidney disease ?N18.9 - Chronic kidney disease, unspecified (ICD-10) Acute kidney injury ?N17.9 - Acute kidney failure, unspecified (ICD-10) Edema of lower leg due to peripheral venous insufficiency ?I87.2 - Venous insufficiency (chronic) (peripheral) (ICD-10) ?R60.0 - Localized edema (ICD-10) Depression ?F32.A - Depression, unspecified (ICD-10) Gastroenteritis ?K52.9 - Noninfective gastroenteritis and colitis, unspecified (ICD-10) Migraine without aura and without status migrainosus, not intractable ?G43.009 - Migraine without aura, not intractable, without status migrainosus (ICD-10) Chronic heart failure with preserved ejection fraction (HFpEF) ?I50.32 - Chronic diastolic (congestive) heart failure (ICD-10) Chest pain ?R07.9 - Chest pain, unspecified (ICD-10) Dyspnea ?R06.00 - Dyspnea, unspecified (ICD-10) Fluid overload ?E87.70 - Fluid overload, unspecified (ICD-10) Osteoarthritis ?M19.90 - Unspecified osteoarthritis, unspecified site (ICD-10) Anemia ?D64.9 - Anemia, unspecified (ICD-10) Anxiety ?F41.9 - Anxiety disorder, unspecified (ICD-10) Stroke ?I63.9 - Cerebral infarction, unspecified (ICD-10) Acid reflux ?K21.9 - Gastro-esophageal reflux disease without esophagitis (ICD-10) Hypothyroid ?E03.9 - Hypothyroidism, unspecified (ICD-10) Kidney failure ?N19 - Unspecified kidney failure (ICD-10) COPD (chronic obstructive pulmonary disease) ?J44.9 - Chronic obstructive pulmonary disease, unspecified (ICD-10) Asthma ?J45.909 - Unspecified asthma, uncomplicated (ICD-10) CHF (congestive heart failure) ?I50.9 - Heart failure, unspecified (ICD-10) Irregular heart beat ?I49.9 - Cardiac arrhythmia, unspecified (ICD-10) HTN (hypertension) ?I10 - Essential (primary) hypertension (ICD-10) Heart attack ?I21.9 - Acute myocardial infarction, unspecified (ICD-10) Lumbar spondylosis ?M47.816 - Spondylosis without myelopathy or radiculopathy, lumbar region (ICD-10) Surgical History H/O hysterectomy with oophorectomy H/O gastric bypass ?Z98.84 - Bariatric surgery status (ICD-10) History of hernia repair ?Z98.890 - Other specified postprocedural states (ICD-10) ?Z87.19 - Personal history of other diseases of the digestive system (ICD-10) History of rotator cuff surgery ?Z98.890 - Other specified postprocedural states (ICD-10) History of right knee joint replacement ?Z96.651 - Presence of right artificial knee joint (ICD-10) History of appendectomy ?Z90.49 - Acquired absence of other specified parts of digestive tract (ICD- 10) Hx of cholecystectomy ?Z90.49 - Acquired absence of other specified parts of digestive tract (ICD- 10) Family History Father Family history of CHF (congestive heart failure) Family history of diabetes mellitus Family history of hypertension Family history of myocardial infarction Family history of stroke Mother Family history of CHF (congestive heart failure) Family history of COPD (chronic obstructive pulmonary disease) Family history of diabetes mellitus Family history of hypertension Family history of myocardial infarction Family history of stroke Social History Within the past year, how often did you have a drink containing alcohol: never Within the past year, how often did you have six or more drinks on one occasion: never Score interpretation: A score less than 3 is consistent with normal alcohol consumption. 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 Highest level of school completed/degree received: some college, no degree Are you now , , , , never or living with a partner: In a typical week, how many times do you talk on the telephone with family, friends, or neighbors: 3 or more times per week How often do you get together with friends or relatives: twice per week How often do you attend roman catholic or catholic services: 4 or more times per year Do you belong to any clubs or organizations such as roman catholic groups unions, [employer] or athletic groups, or school groups: no Total score: 3 Score interpretation: A score of greater than or equal to 2 indicates the lowest level of social isolation. Little interest or pleasure in doing things: not at all Feeling down, depressed, or hopeless: several days Feel stressed/tense/nervous/anxious/difficulty sleeping: to some extent Life stressors: recent of family or friend Do you think of yourself as: straight/heterosexual Gender Identity: female Meds Home Medications and Allergies Home Medications ?Medication ?Instructions ?Recorded ?Confirmed ?Type alprazolam 0.5 mg tablet 0.5 mg PO BID PRN anxiety 12/08/22 12/12/23 History amitriptyline 150 mg tablet 300 mg PO BEDTIME 12/08/22 12/12/23 History calcium acetate(phosphat bind) 667 667 mg PO BID 12/08/22 12/12/23 History mg capsule levothyroxine 100 mcg tablet 100 mcg PO DAILY 12/08/22 12/12/23 History linaclotide 290 mcg capsule 290 mcg PO DAILY 12/08/22 12/12/23 History (Linzess) oxycodone-acetaminophen 5 mg-325 2 tab PO Q6H PRN pain 12/08/22 12/12/23 History mg tablet primidone 50 mg tablet 150 mg PO BEDTIME 12/08/22 12/12/23 History tizanidine 4 mg tablet (Zanaflex) 4 mg PO Q6H PRN muscle spasticity 12/08/22 12/12/23 History aripiprazole 2 mg tablet (Abilify) 2 mg PO DAILY 01/23/23 12/12/23 History bumetanide 1 mg tablet 3 mg PO Q12H PRN SWELLING 01/23/23 12/12/23 History spironolactone 50 mg tablet 50 mg PO DAILY PRN swelling 01/24/23 12/12/23 History (Aldactone) butorphanol 10 mg/mL nasal spray 1 spray intranasal .QD PRN pain 02/03/23 12/12/23 History apixaban 2.5 mg tablet (Eliquis) 2.5 mg PO BID 07/20/23 12/12/23 History azelastine 0.05 % eye drops 1 drp ophthalmic (eye) DAILY 09/29/23 12/12/23 History desvenlafaxine succinate 50 mg 50 mg PO DAILY 09/29/23 12/12/23 History tablet,extended release 24 hr diclofenac sodium 1 % topical gel 2 g topical .QD PRN 09/29/23 12/12/23 History PAIN/INFLAMMATION doxepin 10 mg capsule 10 mg PO BID 09/29/23 12/12/23 History escitalopram oxalate 20 mg tablet 20 mg PO DAILY 09/29/23 12/12/23 History pantoprazole 40 mg tablet,delayed 40 mg PO DAILY 09/29/23 12/12/23 History release fentanyl 100 mcg/hr transdermal 1 patch transdermal Q72H 10/12/23 12/12/23 History patch liothyronine 25 mcg tablet 25 mcg PO .qd 10/23/23 12/12/23 History pramipexole 1 mg tablet 1 mg PO .qd 10/23/23 12/12/23 History spironolactone 100 mg tablet 100 mg PO BID 10/23/23 12/12/23 History sacubitril 24 mg-valsartan 26 mg 4 tab PO DAILY 11/11/23 12/12/23 History tablet (Entresto) Allergies Allergy/AdvReac Type Severity Reaction Status Date / Time povidone-iodine Allergy Intermediate Verified 12/14/23 00:19 [From Betadine] amoxicillin [From Augmentin] Allergy Mild Vomiting Verified 12/14/23 00:19 clavulanic acid Allergy Mild Vomiting Verified 12/14/23 00:19 [From Augmentin] Sulfa (Sulfonamide Allergy Mild Vomiting Verified 12/14/23 00:19 Antibiotics) ciprofloxacin [From Cipro] Allergy Unknown Verified 12/14/23 00:19 Exam Constitutional Documenting provider has reviewed patient's vital signs: yes Common normals: no apparent distress, oriented x3, healthy appearing, alert and well nourished General appearance: cooperative HENMT Common normals: normocephalic, hearing grossly normal bilaterally and moist oral mucous membranes Head and scalp: normocephalic Eye Common normals: PERRL Pupil: PERRL Neck & C-Spine Common normals: full ROM General: normal visual inspection Other: c-collar unable to assess Chest Common normals: inspection of chest normal Respiratory Common normals: normal respiratory effort, no retractions and no use of accessory muscles Back & Pelvis Lumbar spine/lower back: lumbar ROM normal, ROM limited, pain with ROM and straight leg raise negative bilaterally Other: sensation intact BLE strength 5/5 in BLE facet loading positive, pain over L4-S1 facets left SIJ positive stephenie(patricks), gaenslens, thigh thrust, compression test Extremity General: edema Neuro Common normals: oriented x3, CN's II-XII intact bilaterally, moves all extremities, no focal motor deficits, no sensory deficits noted and deep tendon reflexes 2+ bilaterally Sensorium/orientation: alert Gait (neuro): assistive device used walker Motor exam: no movement abnormalities noted Psych Common normals: mental status grossly normal, thought process normal, cooperative, affect normal, speech normal and activity/motor behavior normal Speech: normal speech Thought process: normal thought process Results Additional Findings Additional findings: If on a controlled substance or opioids, I have checked an [place] report on this patient and there are no aberrancies noted in the prescribing history.??If on a controlled substance or opioid a drug screen was completed and reviewed within the last year, and if there has not been a drug screen completed we ordered one today to monitor higher risk, state monitored pain medication use. As part of providing excellent, safe, comprehensive care, the following was completed at our patient's visit: 1. A medication reconciliation and review to ensure accurate knowledge of current/active medications, including asking our patients to inform us about any [id number] medications or herbal remedies/nutritional supplements/alternative remedies. 2. A review to specifically ensure our patients have had annual screening for screening for depression, screening for tobacco use, and screening for unhealthy alcohol use. For concerning screenings had a discussion with the patient, provided patient education, and recommended follow-up with primary care provider when appropriate. If patient noted with a risk of falling, they received education on strength, gait, and balance training to prevent future risk of falling. Assessment and Plan Assessment and Plan (1) Lumbar radiculopathy: (2) Lumbar stenosis with neurogenic claudication: Plan f/u 3 months, sooner if needed
== END 2023-12-27 08:52 | disposition home or self-care (01) ==
LOC: PM 08:52
PROVIDERS: PCP Family Medicine; Visit Provider Nurse Practitioner
DX: M48.062 Spinal stenosis, lumbar region with neurogenic claudication (principal); M54.16 Radiculopathy, lumbar region
CPT/HCPCS: G0463

== ENCOUNTER 2024-01-04 15:18 | Inpatient (IN) | payer MEDICARE, MEDICAID, SELFPAY ==
[2024-01-04] VITALS (13 sets, daily range): BP systolic 113–149; BP diastolic 75–90; PULSE 70–115; TEMP 36.7–36.9; O2SAT 93–100; BMI 37.9; BMI 38.3
--- NOTE | 2024-01-04 15:39 | XR_ITS ---
The [address] [address] Patient Name: JOSE CLEMENTS MRN: [id number] date: 1960 Sex: F Assigned Patient Location: ER Current Patient Location: ER Accession/Order Number: [id number] Exam Date: 01/04/2024 15:40 Report Date: 01/04/2024 16:10 At the request of: SALOME HESTER Procedure: XR chest 1V EXAMINATION: XR chest 1V HISTORY: shortness of breath COMPARISON: 09/29/2023 TECHNIQUE: AP portable FINDINGS: LUNGS: No significant pulmonary parenchymal abnormalities. VASCULATURE: No increased pulmonary vasculature. PLEURA: No pneumothorax, effusion, or pleural thickening. CARDIAC: No cardiomegaly or cardiac silhouette abnormality. MEDIASTINUM: No visible mass or adenopathy. BONES: No fracture or visible bone lesion. Rotatory dextrocurvature with degenerative changes OTHER: Accessed right Port-A-Cath XR/XR chest 1V IMPRESSION: No acute cardiopulmonary process Electronically authenticated by: CARLOS ALCALA Date: 01/04/2024 16:10
--- NOTE | 2024-01-04 15:39 | ECG_ITS ---
The 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
[2024-01-04 16:08] LABS: Basophils Percent Auto 0.3 % (0.2-2.0); Eosinophils Absolute Auto 0.1 10^3/uL (0.0-0.7); Eosinophils Percent Auto 1.3 % (0.9-7.0); Hematocrit 28.7 % (36.0-48.0); Hemoglobin 8.7 g/dL (12.0-16.0); Immature Granulocytes Abs Auto 0.07 10^3/uL (0.00-0.03); Immature Granulocytes Pct Auto 0.9 % (0.0-0.5); Lymphocytes Percent Auto 12.6 % (20.5-60.0); Mean Corpuscular HGB Conc 30.3 g/dL (29.9-35.2); Mean Corpuscular Hemoglobin 30.9 pg (26.7-34.0); Mean Corpuscular Volume 101.8 fL (81.0-99.0); Mean Platelet Volume 8.6 fL (9.5-13.5); Monocytes Absolute Auto 0.6 10^3/uL (0.3-0.8); Monocytes Percent Auto 8.2 % (1.7-12.0); Neutrophils Percent Auto 76.7 % (43.0-75.0); Platelet Count 271 10^3/uL (150-450); Red Blood Count 2.82 10^6/uL (4.20-5.40); Red Cell Distribution Width 13.6 % (11.0-15.0); White Blood Count 7.8 10^3/uL (4.0-11.0)
[2024-01-04 16:33] LABS: Alanine Aminotransferase 19 U/L (14-59); Albumin Globulin Ratio 0.8; Albumin Level 2.7 g/dL (3.4-5.0); Alkaline Phosphatase 263 U/L (46-116); Anion Gap 7.6; Aspartate Amino Transferase 18 U/L (15-37); BUN Creatinine Ratio 29.7; Bilirubin Total 0.2 mg/dL (0.2-1.0); Calcium 7.7 mg/dL (8.5-10.1); Carbon Dioxide 26.4 mmol/L (21.0-32.0); Chloride 104 mmol/L (98-107); Estimated GFR (African America 38 (>=60); Estimated GFR (Non-African Ame 32 (>=60); Globulin 3.4 g/dL; Glucose 84 mg/dL (74-106); Sodium 134 mmol/L (136-145); Total Protein 6.1 g/dL (6.4-8.2); Troponin I High Sensitivity 7.2 pg/mL (4.0-51.3)
--- NOTE | 2024-01-04 17:11 | ED_ITS ---
HPI HPI - General Adult General Chief complaint: Extremity Problem, Nontraumatic Stated complaint: swelling in legs-leaking Time Seen by Provider: 01/04/24 15:24 Source: patient Mode of arrival: walk-in Limitations: no limitations History of Present Illness HPI narrative: 63-year-old female to the emergency department with chief complaint of lower extremity swelling, weight gain. Patient reports she has history of lymphedema/CHF. She reports that she has been battling volume overload since . Patient reports she follows with Dr. Godinez for this. She has been taking her Bumex and spironolactone as prescribed. She reports that she has a 20 pound weight gain over the last few weeks. She reports that she is in chronic kidney disease and sees nephrology. Related Data Home Medications ?Medication ?Instructions ?Recorded ?Confirmed alprazolam 0.5 mg tablet 0.5 mg PO BID PRN anxiety 12/08/22 01/04/24 amitriptyline 150 mg tablet 300 mg PO BEDTIME 12/08/22 01/04/24 calcium acetate(phosphat bind) 667 667 mg PO BID 12/08/22 01/04/24 mg capsule levothyroxine 100 mcg tablet 100 mcg PO DAILY 12/08/22 01/04/24 linaclotide 290 mcg capsule 290 mcg PO DAILY 12/08/22 01/04/24 (Linzess) oxycodone-acetaminophen 5 mg-325 2 tab PO Q6H PRN pain 12/08/22 01/04/24 mg tablet primidone 50 mg tablet 150 mg PO BEDTIME 12/08/22 01/04/24 tizanidine 4 mg tablet (Zanaflex) 4 mg PO Q6H PRN muscle spasticity 12/08/22 01/04/24 aripiprazole 2 mg tablet (Abilify) 2 mg PO DAILY 01/23/23 01/04/24 bumetanide 1 mg tablet 3 mg PO Q12H PRN SWELLING 01/23/23 01/04/24 butorphanol 10 mg/mL nasal spray 1 spray intranasal .QD PRN pain 02/03/23 01/04/24 apixaban 2.5 mg tablet (Eliquis) 2.5 mg PO BID 07/20/23 01/04/24 azelastine 0.05 % eye drops 1 drp ophthalmic (eye) DAILY 09/29/23 01/04/24 desvenlafaxine succinate 50 mg 50 mg PO DAILY 09/29/23 01/04/24 tablet,extended release 24 hr diclofenac sodium 1 % topical gel 2 g topical .QD PRN 09/29/23 01/04/24 PAIN/INFLAMMATION doxepin 10 mg capsule 10 mg PO BID 09/29/23 01/04/24 escitalopram oxalate 20 mg tablet 20 mg PO DAILY 09/29/23 01/04/24 fentanyl 100 mcg/hr transdermal 1 patch transdermal Q72H 10/12/23 01/04/24 patch pramipexole 1 mg tablet 1 mg PO .qd 10/23/23 01/04/24 spironolactone 100 mg tablet 100 mg PO BID 10/23/23 01/04/24 sacubitril 24 mg-valsartan 26 mg 4 tab PO DAILY 11/11/23 01/04/24 tablet (Entresto) Allergies Allergy/AdvReac Type Severity Reaction Status Date / Time povidone-iodine Allergy Intermediate Verified 12/14/23 00:19 [From Betadine] amoxicillin [From Augmentin] Allergy Mild Vomiting Verified 12/14/23 00:19 clavulanic acid Allergy Mild Vomiting Verified 12/14/23 00:19 [From Augmentin] Sulfa (Sulfonamide Allergy Mild Vomiting Verified 12/14/23 00:19 Antibiotics) ciprofloxacin [From Cipro] Allergy Unknown Verified 12/14/23 00:19 Opioid HPI Opioid Management Most Recent Opioid Data: Last Pain Scale 8 01/04/24 15:30 Last ORT Total Score 0 10/23/23 12:31 Last ORT Risk Category Low Risk 10/23/23 12:31 Review of Systems ROS Status of ROS 10 or more systems reviewed and unremark able except as noted in history and below [facility] Medical History (Updated 01/04/24 @ 17:29 by Ishaan Benz MD) Chronic kidney disease ?N18.9 - Chronic kidney disease, unspecified (ICD-10) Acute kidney injury ?N17.9 - Acute kidney failure, unspecified (ICD-10) Edema of lower leg due to peripheral venous insufficiency ?I87.2 - Venous insufficiency (chronic) (peripheral) (ICD-10) ?R60.0 - Localized edema (ICD-10) Depression ?F32.A - Depression, unspecified (ICD-10) Gastroenteritis ?K52.9 - Noninfective gastroenteritis and colitis, unspecified (ICD-10) Migraine without aura and without status migrainosus, not intractable ?G43.009 - Migraine without aura, not intractable, without status migrainosus (ICD-10) Chronic heart failure with preserved ejection fraction (HFpEF) ?I50.32 - Chronic diastolic (congestive) heart failure (ICD-10) Chest pain ?R07.9 - Chest pain, unspecified (ICD-10) Dyspnea ?R06.00 - Dyspnea, unspecified (ICD-10) Fluid overload ?E87.70 - Fluid overload, unspecified (ICD-10) Osteoarthritis ?M19.90 - Unspecified osteoarthritis, unspecified site (ICD-10) Anemia ?D64.9 - Anemia, unspecified (ICD-10) Anxiety ?F41.9 - Anxiety disorder, unspecified (ICD-10) Stroke ?I63.9 - Cerebral infarction, unspecified (ICD-10) Acid reflux ?K21.9 - Gastro-esophageal reflux disease without esophagitis (ICD-10) Hypothyroid ?E03.9 - Hypothyroidism, unspecified (ICD-10) Kidney failure ?N19 - Unspecified kidney failure (ICD-10) COPD (chronic obstructive pulmonary disease) ?J44.9 - Chronic obstructive pulmonary disease, unspecified (ICD-10) Asthma ?J45.909 - Unspecified asthma, uncomplicated (ICD-10) CHF (congestive heart failure) ?I50.9 - Heart failure, unspecified (ICD-10) Irregular heart beat ?I49.9 - Cardiac arrhythmia, unspecified (ICD-10) HTN (hypertension) ?I10 - Essential (primary) hypertension (ICD-10) Heart attack ?I21.9 - Acute myocardial infarction, unspecified (ICD-10) Lumbar spondylosis ?M47.816 - Spondylosis without myelopathy or radiculopathy, lumbar region (ICD-10) Surgical History H/O hysterectomy with oophorectomy H/O gastric bypass ?Z98.84 - Bariatric surgery status (ICD-10) History of hernia repair ?Z98.890 - Other specified postprocedural states (ICD-10) ?Z87.19 - Personal history of other diseases of the digestive system (ICD-10) History of rotator cuff surgery ?Z98.890 - Other specified postprocedural states (ICD-10) History of right knee joint replacement ?Z96.651 - Presence of right artificial knee joint (ICD-10) History of appendectomy ?Z90.49 - Acquired absence of other specified parts of digestive tract (ICD- 10) Hx of cholecystectomy ?Z90.49 - Acquired absence of other specified parts of digestive tract (ICD- 10) Family History Father Family history of CHF (congestive heart failure) Family history of diabetes mellitus Family history of hypertension Family history of myocardial infarction Family history of stroke Mother Family history of CHF (congestive heart failure) Family history of COPD (chronic obstructive pulmonary disease) Family history of diabetes mellitus Family history of hypertension Family history of myocardial infarction Family history of stroke Social History Within the past year, how often did you have a drink containing alcohol: never Within the past year, how often did you have six or more drinks on one occasion: never Score interpretation: A score less than 3 is consistent with normal alcohol consumption. 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 Highest level of school completed/degree received: some college, no degree Are you now , , , , never or living with a partner: In a typical week, how many times do you talk on the telephone with family, friends, or neighbors: 3 or more times per week How often do you get together with friends or relatives: twice per week How often do you attend hindu or oriental orthodox services: 4 or more times per year Do you belong to any clubs or organizations such as hindu groups unions, fraternal or athletic groups, or school groups: no Total score: 3 Score interpretation: A score of greater than or equal to 2 indicates the lowest level of social isolation. Little interest or pleasure in doing things: not at all Feeling down, depressed, or hopeless: several days Feel stressed/tense/nervous/anxious/difficulty sleeping: to some extent Life stressors: recent of family or friend Do you think of yourself as: straight/heterosexual Gender Identity: female Exam Narrative Exam Narrative: VITALS: I have reviewed the triage vital signs. GENERAL: Elderly female in no distress NEURO: Alert and oriented. Moves all extremities. Face is symmetric and expressive. EYES: PERRL. No scleral icterus or conjunctival injection. No discharge. HENT: Normocephalic, atraumatic. Hearing is grossly intact. Nares grossly patent and without discharge. Mucous membranes moist. NECK: No JVD. Patient moves neck without restriction. CARDIO: Rhythm regular. Normal rate. No murmur, rub, or gallop. Pulses equal bilaterally in the upper and lower extremity. 3+ pitting edema bilaterally PULM: Trace rales at the bases. no conversational dyspnea. No splinting, stridor, or accessory muscle use. GI/: Abdomen is soft and non-tender. Normoactive bowel sounds. EXTREMITIES: Symmetric muscle bulk. No joint swelling. No clubbing, cyanosis, or deformity. SKIN: Warm and dry. Normal turgor. No rash or lesions appreciated. PSYCH: Mood, affect, and interaction is appropriate to the setting. Constitutional Vital Signs, click to edit/add: Last Vital Signs Temp 98.1 F 01/04/24 15:27 Pulse 73 01/04/24 16:30 Resp 15 01/04/24 16:30 BP 128/78 01/04/24 16:30 Pulse Ox 100 01/04/24 16:30 O2 Del Method Room Air 01/04/24 15:27 Course Vital Signs Vital signs: Vital Signs Temperature 98.1 F 01/04/24 15:27 Pulse Rate 85 01/04/24 15:27 Respiratory Rate 18 01/04/24 15:27 Blood Pressure 149/86 H 01/04/24 15:27 Pulse Oximetry 100 01/04/24 15:27 Oxygen Delivery Method Room Air 01/04/24 15:27 Temperature 98.1 F 01/04/24 15:27 Pulse Rate 73 01/04/24 16:30 Respiratory Rate 15 01/04/24 16:30 Blood Pressure 128/78 01/04/24 16:30 Pulse Oximetry 100 01/04/24 16:30 Oxygen Delivery Method Room Air 01/04/24 15:27 Medical Decision Making MDM Narrative Medical decision making narrative: 63-year-old female to the emergency department with chief complaint of volume overloaded state. Vital stable, the patient is afebrile. She does have significantly edematous lower extremities. She reports this is limiting her ability to walk. 20 pound weight gain. I did confirm that she is nearly 9 kg from her previous dry weight. Basic labs are baseline for the patient. Her creat is actually improved from her recent baseline. Case discussed with Dr. Godinez who agrees to admit the patient. Patient agrees with this plan Medical Records Medical records reviewed: Yes I reviewed the patient's medical records Lab Data Lab results reviewed: Yes I reviewed the patient's lab results Labs: Lab Results 01/04/24 Range/Units 15:57 WBC 7.8 (4.0-11.0) 10^3/uL RBC 2.82 L (4.20-5.40) 10^6/uL Hgb 8.7 L (12.0-16.0) g/dL Hct 28.7 L (36.0-48.0) % MCV 101.8 H (81.0-99.0) fL MCH 30.9 (26.7-34.0) pg MCHC 30.3 (29.9-35.2) g/dL RDW 13.6 (11.0-15.0) % Plt Count 271 (150-450) 10^3/uL MPV 8.6 L (9.5-13.5) fL Neut % (Auto) 76.7 H (43.0-75.0) % Lymph % (Auto) 12.6 L (20.5-60.0) % Baker % (Auto) 8.2 (1.7-12.0) % Eos % (Auto) 1.3 (0.9-7.0) % Baso % (Auto) 0.3 (0.2-2.0) % Neut # (Auto) 6.0 (1.4-6.5) 10^3/uL Lymph # (Auto) 1.0 L (1.2-3.8) 10^3/uL Baker # (Auto) 0.6 (0.3-0.8) 10^3/uL Eos # (Auto) 0.1 (0.0-0.7) 10^3/uL Baso # (Auto) 0.0 (0.0-0.1) 10^3/uL Abs Immat Gran (auto) 0.07 H (0.00-0.03) 10^3/uL Imm/Tot Granulo (auto) 0.9 H (0.0-0.5) % Sodium 134 L (136-145) mmol/L Potassium 4.0 (3.5-5.1) mmol/L Chloride 104 (98-107) mmol/L Carbon Dioxide 26.4 (21.0-32.0) mmol/L Anion Gap 7.6 BUN 49.0 H (7.0-18.0) mg/dL Creatinine 1.65 H (0.55-1.02) mg/dL Est GFR ( Amer) 38 L (>=60) Est GFR (Non-Af Amer) 32 L (>=60) BUN/Creatinine Ratio 29.7 Glucose 84 (74-106) mg/dL Calcium 7.7 L (8.5-10.1) mg/dL Total Bilirubin 0.2 (0.2-1.0) mg/dL AST 18 (15-37) U/L ALT 19 (14-59) U/L Alkaline Phosphatase 263 H (46-116) U/L Troponin I High Sens 7.2 (4.0-51.3) pg/mL NT-Pro-B Natriuret Pep 654.0 (<=900.0) pg/mL Total Protein 6.1 L (6.4-8.2) g/dL Albumin 2.7 L (3.4-5.0) g/dL Globulin 3.4 g/dL Albumin/Globulin Ratio 0.8 ECG Data Attestation: I personally reviewed and interpreted this ECG as follows: (Normal sinus rhythm at a rate of 74. No ischemia. Normal QTc) Discharge Plan Discharge Stand Alone Forms: Portal Instructions Chief Complaint: Extremity Problem, Nontraumatic Clinical Impression: Volume overload, Lymphedema Patient Disposition: Admitted as Observation Time of Disposition Decision: 17:28 Condition: Good Prescriptions / Home Meds: No Action aripiprazole [Abilify] 2 mg tablet 2 mg PO DAILY bumetanide 1 mg tablet 3 mg PO Q12H PRN (Reason: SWELLING) Hold Instructions: Resume on 02/16/23. until cleared by PCP butorphanol 10 mg/mL spray,non-aerosol 1 spray INTRANASAL .QD PRN (Reason: pain) Eliquis 2.5 mg tablet 2.5 mg PO BID Hold Instructions: PCP order desvenlafaxine succinate 50 mg tablet extended release 24 hr 50 mg PO DAILY diclofenac sodium 1 % gel 2 g TOPICAL .QD PRN (Reason: PAIN/INFLAMMATION) doxepin 10 mg capsule 10 mg PO BID escitalopram oxalate 20 mg tablet 20 mg PO DAILY azelastine 0.05 % drops 1 drp OPHTHALMIC (EYE) DAILY fentanyl 100 mcg/hr patch 72 hour 1 patch transdermal Q72H pramipexole 1 mg tablet 1 mg PO .qd spironolactone 100 mg tablet 100 mg PO BID Hold Instructions: PCP order alprazolam 0.5 mg tablet 0.5 mg PO BID PRN (Reason: anxiety) amitriptyline 150 mg tablet 300 mg PO BEDTIME calcium acetate(phosphat bind) 667 mg capsule 667 mg PO BID levothyroxine 100 mcg tablet 100 mcg PO DAILY Linzess 290 mcg capsule 290 mcg PO DAILY Hold Instructions: PCP order primidone 50 mg tablet 150 mg PO BEDTIME tizanidine [Zanaflex] 4 mg tablet 4 mg PO Q6H PRN (Reason: muscle spasticity) oxycodone-acetaminophen 5-325 mg tablet 2 tab PO Q6H PRN (Reason: pain) Entresto 24-26 mg Tablet 4 tab PO DAILY Hold Instructions: Per PCP Rx Instructions: 91 mg daily Print Language: French Referrals: Yuri Godinez MD [Primary Care Provider] - 1 week
[2024-01-04] MEDS: OXYCODONE HCL 5 MG TABLET PO (17:29)
--- NOTE | 2024-01-04 17:48 | P.HP_ITS ---
HPI H&P: HPI History of Present Illness Chief complaint: VOLUME OVERLOAD LYMPHEDEMA Narrative: Patient was seen in the office approximately 3 days ago, significantly fluid overloaded at that time, 20 pounds over baseline weight, we increased Aldactone and Bumex dosing, no effect. Not significant urinary output. Unable to do direct admission. Patient presented to the emergency room with sinus tachycardia tachycardia, shortness of breath with ambulation secondary to significant fluid overload, BNP and HST all normal. When I saw patient up on the medical surgical floor, she was resting comfortably in bed, somewhat uncomfortable secondary to pain in her lower extremities due to swelling., But no respiratory distress. Opioid HPI Opioid Management Most Recent Pain and Opioid Data: Last Pain Scale 8 01/04/24 15:30 Last ORT Total Score 0 01/04/24 18:19 Last ORT Risk Category Low Risk 01/04/24 18:19 Review of Systems ROS Status of ROS 10 or more systems reviewed and unremark able except as noted in history and below [facility] Medical History Chronic kidney disease ?N18.9 - Chronic kidney disease, unspecified (ICD-10) Acute kidney injury ?N17.9 - Acute kidney failure, unspecified (ICD-10) Edema of lower leg due to peripheral venous insufficiency ?I87.2 - Venous insufficiency (chronic) (peripheral) (ICD-10) ?R60.0 - Localized edema (ICD-10) Depression ?F32.A - Depression, unspecified (ICD-10) Gastroenteritis ?K52.9 - Noninfective gastroenteritis and colitis, unspecified (ICD-10) Migraine without aura and without status migrainosus, not intractable ?G43.009 - Migraine without aura, not intractable, without status migrainosus (ICD-10) Chronic heart failure with preserved ejection fraction (HFpEF) ?I50.32 - Chronic diastolic (congestive) heart failure (ICD-10) Chest pain ?R07.9 - Chest pain, unspecified (ICD-10) Dyspnea ?R06.00 - Dyspnea, unspecified (ICD-10) Fluid overload ?E87.70 - Fluid overload, unspecified (ICD-10) Osteoarthritis ?M19.90 - Unspecified osteoarthritis, unspecified site (ICD-10) Anemia ?D64.9 - Anemia, unspecified (ICD-10) Anxiety ?F41.9 - Anxiety disorder, unspecified (ICD-10) Stroke ?I63.9 - Cerebral infarction, unspecified (ICD-10) Acid reflux ?K21.9 - Gastro-esophageal reflux disease without esophagitis (ICD-10) Hypothyroid ?E03.9 - Hypothyroidism, unspecified (ICD-10) Kidney failure ?N19 - Unspecified kidney failure (ICD-10) COPD (chronic obstructive pulmonary disease) ?J44.9 - Chronic obstructive pulmonary disease, unspecified (ICD-10) Asthma ?J45.909 - Unspecified asthma, uncomplicated (ICD-10) CHF (congestive heart failure) ?I50.9 - Heart failure, unspecified (ICD-10) Irregular heart beat ?I49.9 - Cardiac arrhythmia, unspecified (ICD-10) HTN (hypertension) ?I10 - Essential (primary) hypertension (ICD-10) Heart attack ?I21.9 - Acute myocardial infarction, unspecified (ICD-10) Lumbar spondylosis ?M47.816 - Spondylosis without myelopathy or radiculopathy, lumbar region (ICD-10) Surgical History H/O hysterectomy with oophorectomy H/O gastric bypass ?Z98.84 - Bariatric surgery status (ICD-10) History of hernia repair ?Z98.890 - Other specified postprocedural states (ICD-10) ?Z87.19 - Personal history of other diseases of the digestive system (ICD-10) History of rotator cuff surgery ?Z98.890 - Other specified postprocedural states (ICD-10) History of right knee joint replacement ?Z96.651 - Presence of right artificial knee joint (ICD-10) History of appendectomy ?Z90.49 - Acquired absence of other specified parts of digestive tract (ICD- 10) Hx of cholecystectomy ?Z90.49 - Acquired absence of other specified parts of digestive tract (ICD- 10) Family History Father Family history of CHF (congestive heart failure) Family history of diabetes mellitus Family history of hypertension Family history of myocardial infarction Family history of stroke Mother Family history of CHF (congestive heart failure) Family history of COPD (chronic obstructive pulmonary disease) Family history of diabetes mellitus Family history of hypertension Family history of myocardial infarction Family history of stroke Social History Within the past year, how often did you have a drink containing alcohol: never Within the past year, how often did you have six or more drinks on one occasion: never Score interpretation: A score less than 3 is consistent with normal alcohol consumption. 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 Highest level of school completed/degree received: some college, no degree Are you now , , , , never or living with a partner: In a typical week, how many times do you talk on the telephone with family, friends, or neighbors: 3 or more times per week How often do you get together with friends or relatives: twice per week How often do you attend restoration or uatsdin services: 4 or more times per year Do you belong to any clubs or organizations such as restoration groups unions, fraternal or athletic groups, or school groups: no Total score: 3 Score interpretation: A score of greater than or equal to 2 indicates the lowest level of social isolation. Little interest or pleasure in doing things: not at all Feeling down, depressed, or hopeless: several days Feel stressed/tense/nervous/anxious/difficulty sleeping: to some extent Life stressors: recent of family or friend Do you think of yourself as: straight/heterosexual Gender Identity: female Meds Home Medications and Allergies Home Medications ?Medication ?Instructions ?Recorded ?Confirmed ?Type alprazolam 0.5 mg tablet 0.5 mg PO BID PRN anxiety 12/08/22 01/04/24 History amitriptyline 150 mg tablet 300 mg PO BEDTIME 12/08/22 01/04/24 History calcium acetate(phosphat bind) 667 667 mg PO BID 12/08/22 01/04/24 History mg capsule levothyroxine 100 mcg tablet 100 mcg PO DAILY 12/08/22 01/04/24 History linaclotide 290 mcg capsule 290 mcg PO DAILY 12/08/22 01/04/24 History (Dorina) oxycodone-acetaminophen 5 mg-325 2 tab PO Q6H PRN pain 12/08/22 01/04/24 History mg tablet primidone 50 mg tablet 150 mg PO BEDTIME 12/08/22 01/04/24 History tizanidine 4 mg tablet (Zanaflex) 4 mg PO Q6H PRN muscle spasticity 12/08/22 01/04/24 History aripiprazole 2 mg tablet (Abilify) 2 mg PO DAILY 01/23/23 01/04/24 History bumetanide 1 mg tablet 3 mg PO Q12H PRN SWELLING 01/23/23 01/04/24 History butorphanol 10 mg/mL nasal spray 1 spray intranasal .QD PRN pain 02/03/23 01/04/24 History apixaban 2.5 mg tablet (Eliquis) 2.5 mg PO BID 07/20/23 01/04/24 History azelastine 0.05 % eye drops 1 drp ophthalmic (eye) DAILY 09/29/23 01/04/24 History desvenlafaxine succinate 50 mg 50 mg PO DAILY 09/29/23 01/04/24 History tablet,extended release 24 hr diclofenac sodium 1 % topical gel 2 g topical .QD PRN 09/29/23 01/04/24 History PAIN/INFLAMMATION doxepin 10 mg capsule 10 mg PO BID 09/29/23 01/04/24 History escitalopram oxalate 20 mg tablet 20 mg PO DAILY 09/29/23 01/04/24 History fentanyl 100 mcg/hr transdermal 1 patch transdermal Q72H 10/12/23 01/04/24 History patch pramipexole 1 mg tablet 1 mg PO .qd 10/23/23 01/04/24 History spironolactone 100 mg tablet 100 mg PO BID 10/23/23 01/04/24 History sacubitril 24 mg-valsartan 26 mg 4 tab PO DAILY 11/11/23 01/04/24 History tablet (Entresto) Allergies Allergy/AdvReac Type Severity Reaction Status Date / Time povidone-iodine Allergy Intermediate Verified 12/14/23 00:19 [From Betadine] amoxicillin [From Augmentin] Allergy Mild Vomiting Verified 12/14/23 00:19 clavulanic acid Allergy Mild Vomiting Verified 12/14/23 00:19 [From Augmentin] Sulfa (Sulfonamide Allergy Mild Vomiting Verified 12/14/23 00:19 Antibiotics) ciprofloxacin [From Cipro] Allergy Unknown Verified 12/14/23 00:19 Exam Constitutional Vital Signs, click to edit/add: Last Vital Signs Temp 98.1 F 01/04/24 15:27 Pulse 73 01/04/24 16:30 Resp 15 01/04/24 16:30 BP 128/78 01/04/24 16:30 Pulse Ox 100 01/04/24 16:30 O2 Del Method Room Air 01/04/24 15:27 Documenting provider has reviewed patient's vital signs: yes Common normals: no apparent distress Chest Common normals: inspection of chest normal Respiratory Common normals: normal respiratory effort, no retractions and clear to auscultation bilaterally Cardio Common normals: regular rate, regular rhythm and no murmurs Extremity Common normals: abnormal to inspection (4+ edema ) Results Labs Labs: Short CBC 01/04/24 Range/Units 15:57 WBC 7.8 (4.0-11.0) 10^3/uL Hgb 8.7 L (12.0-16.0) g/dL Hct 28.7 L (36.0-48.0) % Plt Count 271 (150-450) 10^3/uL BMP 01/04/24 15:57 Sodium 134 L Potassium 4.0 Chloride 104 Carbon Dioxide 26.4 BUN 49.0 H Creatinine 1.65 H Glucose 84 Calcium 7.7 L Liver Function 01/04/24 Range/Units 15:57 Total Bilirubin 0.2 (0.2-1.0) mg/dL AST 18 (15-37) U/L ALT 19 (14-59) U/L Alkaline Phosphatase 263 H (46-116) U/L Albumin 2.7 L (3.4-5.0) g/dL Assessment and Plan Assessment and Plan (1) Fluid overload: (2) Hypothyroid: (3) Chronic kidney disease: Plan Findings on admission: Patient with significant fluid overload, 20 pounds up from previous weight and this is despite tripling of her diuretics. Start Bumex drip again, tolerated in the past, hold off on echo more likely lymphedema Edema lower extremities-likely secondary to above-just appears to be her lymphedema no other signs of DVT Hypothyroidism-continue with current dosing has had recent labs and normal Chronic kidney disease stage III-this will likely get little bit worse with her diuresis, monitor daily Cervical lumbar radiculopathy-continue with current medications. Will use as needed Dilaudid as the bed is likely to make her back worse Insomnia-continue with home medications GERD-continue with home medications Admission status: Patient has failed outpatient treatment with oral diuretics, medically necessary treatment will span 2 midnights. Inpatient status. In the past this is taken 3 to 4 days to remove the 20 pounds excess fluid .
[2024-01-04] MEDS: BUMETANIDE 10 MG in 0.9 % SODIUM CHLORIDE 160 ML 20 MG IV (19:55)
[2024-01-04] MEDS: HYDROMORPHONE HCL 0.5 MG/0.5 ML SYRINGE IV (20:18)
[2024-01-04] MEDS: PRAMIPEXOLE 1 MG TABLET PO (21:53)
[2024-01-04] MEDS: SACUBITRIL/VALSARTAN 24 MG-26 MG TABLET 2 TAB PO (21:53)
[2024-01-04] MEDS: DOXEPIN HCL 10 MG CAPSULE PO (21:53)
[2024-01-04] MEDS: SPIRONOLACTONE 100 MG TABLET PO (21:54)
[2024-01-04] MEDS: PRIMIDONE 50 MG TABLET 150 MG PO (21:55)
[2024-01-04] MEDS: AMITRIPTYLINE HCL 50 MG TABLET 300 MG PO (22:04)
[2024-01-04] MEDS: ALPRAZOLAM 0.5 MG TABLET PO (22:05)
[2024-01-04] MEDS: TIZANIDINE HCL 4 MG TABLET PO (22:05)
[2024-01-04 22:13] LABS: Bilirubin Urine NEGATIVE (NEGATIVE); Blood Urine NEGATIVE (NEGATIVE); Clarity Urine CLEAR (CLEAR); Color Urine LT. YELLOW (YELLOW); Glucose Urine UA NEGATIVE (NEGATIVE); Ketones Urine NEGATIVE (NEGATIVE); Leukocyte Esterase Urine NEGATIVE (NEGATIVE); Nitrite Urine NEGATIVE (NEGATIVE); Protein Urine NEGATIVE (NEG/TRACE); Urobilinogen Urine 0.2 EU/dL (0.2-1.0)
[2024-01-04 22:18] LABS: Bacteria Urine NONE SEEN #/HPF (NONE SEEN); Mucus Urine NONE SEEN (NONE SEEN); RBC Urine NONE SEEN #/HPF (0-2); WBC Urine 0-2 #/HPF (NONE SEEN)
[2024-01-04 22:19] LABS: Cast Seen? NONE SEEN #/LPF (NONE SEEN); Crystals Seen? None Seen #/HPF (None Seen); Squamous Epithelial Cell Urine NONE SEEN #/LPF (NONE/RARE); Urine Culture Indicated NO
[2024-01-05] VITALS (18 sets, daily range): BP systolic 93–141; BP diastolic 53–84; PULSE 73–104; TEMP 36.6–36.9; O2SAT 94–100
[2024-01-05] MEDS: BENZONATATE 100 MG CAPSULE 200 MG PO (03:05)
[2024-01-05] MEDS: TIZANIDINE HCL 4 MG TABLET PO (03:05)
[2024-01-05] MEDS: HYDROMORPHONE HCL 0.5 MG/0.5 ML SYRINGE IV ×4 (03:05→21:21)
[2024-01-05] MEDS: LEVOTHYROXINE SODIUM 100 MCG TABLET PO (05:50)
[2024-01-05 06:18] LABS: Basophils Percent Auto 0.3 % (0.2-2.0); Eosinophils Absolute Auto 0.1 10^3/uL (0.0-0.7); Eosinophils Percent Auto 1.3 % (0.9-7.0); Hematocrit 26.6 % (36.0-48.0); Hemoglobin 8.1 g/dL (12.0-16.0); Immature Granulocytes Abs Auto 0.06 10^3/uL (0.00-0.03); Immature Granulocytes Pct Auto 0.9 % (0.0-0.5); Lymphocytes Absolute Auto 1.4 10^3/uL (1.2-3.8); Lymphocytes Percent Auto 20.5 % (20.5-60.0); Mean Corpuscular HGB Conc 30.5 g/dL (29.9-35.2); Mean Corpuscular Hemoglobin 30.5 pg (26.7-34.0); Mean Platelet Volume 9.1 fL (9.5-13.5); Monocytes Absolute Auto 0.7 10^3/uL (0.3-0.8); Monocytes Percent Auto 9.3 % (1.7-12.0); Neutrophils Absolute Auto 4.8 10^3/uL (1.4-6.5); Neutrophils Percent Auto 67.7 % (43.0-75.0); Platelet Count 276 10^3/uL (150-450); Red Blood Count 2.66 10^6/uL (4.20-5.40); Red Cell Distribution Width 13.5 % (11.0-15.0)
[2024-01-05 06:54] LABS: Anion Gap 8.7; BUN Creatinine Ratio 25.7; Calcium 7.8 mg/dL (8.5-10.1); Carbon Dioxide 26.9 mmol/L (21.0-32.0); Chloride 104 mmol/L (98-107); Estimated GFR (African America 36 (>=60); Estimated GFR (Non-African Ame 30 (>=60); Glucose 94 mg/dL (74-106); Magnesium 1.6 mg/dL (1.8-2.4); Potassium 3.6 mmol/L (3.5-5.1); Sodium 136 mmol/L (136-145)
--- NOTE | 2024-01-05 08:09 | P.PN_ITS ---
Progress Note: Subjective Subjective Interval history: Patient denies significant pain and pressure in her lower extremities. Exam Constitutional Vital Signs, click to edit/add: Last Vital Signs Temp 98.4 F 01/05/24 08:05 Pulse 85 01/05/24 08:05 Resp 8 L 01/05/24 08:05 BP 139/84 01/05/24 08:05 Pulse Ox 94 L 01/05/24 08:05 O2 Del Method Room Air 01/05/24 08:05 O2 Flow Rate 2 01/05/24 04:00 Documenting provider has reviewed patient's vital signs: yes Common normals: no apparent distress Chest Common normals: inspection of chest normal Respiratory Common normals: normal respiratory effort, no retractions and clear to auscultation bilaterally Cardio Common normals: regular rate, regular rhythm and no murmurs Extremity Common normals: abnormal to inspection (4+ edema, erythema present now with evidence for cellulitis left leg) Progress Note: Objective Labs Labs: Short CBC 01/04/24 01/05/24 Range/Units 15:57 05:31 WBC 7.8 7.0 (4.0-11.0) 10^3/uL Hgb 8.7 L 8.1 L (12.0-16.0) g/dL Hct 28.7 L 26.6 L (36.0-48.0) % Plt Count 271 276 (150-450) 10^3/uL BMP 01/04/24 01/05/24 15:57 05:31 Sodium 134 L 136 Potassium 4.0 3.6 Chloride 104 104 Carbon Dioxide 26.4 26.9 BUN 49.0 H 45.0 H Creatinine 1.65 H 1.75 H Glucose 84 94 Calcium 7.7 L 7.8 L Liver Function 01/04/24 Range/Units 15:57 Total Bilirubin 0.2 (0.2-1.0) mg/dL AST 18 (15-37) U/L ALT 19 (14-59) U/L Alkaline Phosphatase 263 H (46-116) U/L Albumin 2.7 L (3.4-5.0) g/dL Urine 01/04/24 Range/Units 21:55 Urine Color Lt. yellow (YELLOW) Urine Clarity Clear (CLEAR) Urine pH 6.0 (5.0-9.0) Ur Specific [place] 1.010 (1.005-1.025) Urine Protein Negative (NEG/TRACE) mg/dL Urine Glucose (UA) Negative (NEGATIVE) mg/dL Progress Note: A&P Assessment and Plan (1) Fluid overload: (2) Hypothyroid: (3) Chronic kidney disease: Plan Findings on admission: Patient with significant fluid overload, 20 pounds up from previous weight and this is despite tripling of her diuretics. S repeat Bumex drip again today. She likely needs at least 2 more doses of this. Edema lower extremities-likely secondary to above-just appears to be her lymphedema no other signs of DVT-this morning and appears to have cellulitis of left lower extremity, adding antibiotics Hypomagnesemia-supplement Hypothyroidism-continue with current dosing has had recent labs and normal Chronic kidney disease stage III-this will likely get little bit worse with her diuresis, monitor daily-slightly worse today as expected Cervical lumbar radiculopathy-continue with current medications. Will use as needed Dilaudid as the bed is likely to make her back worse Insomnia-continue with home medications Moderate protein calorie malnutrition-based on NIH guidelines for albumin- dietary management GERD-continue with home medications Admission status: Patient has failed outpatient treatment with oral diuretics, medically necessary treatment will span 2 midnights. Inpatient status. In the past this is taken 3 to 4 days to remove the 20 pounds excess fluid .
[2024-01-05] MEDS: DOXEPIN HCL 10 MG CAPSULE PO ×2 (09:03→21:21)
[2024-01-05] MEDS: SACUBITRIL/VALSARTAN 24 MG-26 MG TABLET 2 TAB PO ×2 (09:03→21:20)
[2024-01-05] MEDS: CALCIUM ACETATE 667 MG CAPSULE PO ×2 (09:03→16:18)
[2024-01-05] MEDS: DOXYCYCLINE MONOHYDRATE 100 MG CAPSULE PO ×2 (09:03→21:21)
[2024-01-05] MEDS: SPIRONOLACTONE 100 MG TABLET PO ×2 (09:03→21:21)
[2024-01-05] MEDS: MAGNESIUM OXIDE 400 MG TABLET PO ×2 (09:03→21:21)
[2024-01-05] MEDS: DESVENLAFAXINE SUCCINATE 50 MG TAB.ER.24H PO (09:03)
[2024-01-05] MEDS: LUBIPROSTONE 24 MCG CAPSULE PO (09:03)
[2024-01-05] MEDS: ARIPIPRAZOLE 2 MG TABLET PO (09:03)
[2024-01-05] MEDS: CEFTRIAXONE 1,000 MG in 0.9 % SODIUM CHLORIDE 50 ML 100 MG IV (09:03)
[2024-01-05] MEDS: ESCITALOPRAM 10 MG TABLET 20 MG PO (09:03)
--- NOTE | 2024-01-05 10:38 | SWNOTE1 ---
SW met with pt to discuss dc needs. Pt lives at home with significant other. Pt uses a rollator at home. She voiced her legs were so swollen and she was having trouble walking. She voiced ever since June it has been rough for her and she has not been feeling the greatest. Pt was going to outpt therapy and also getting her legs wrapped 3x a week for her Lymphedema. She has been fighting with the insurance [employer] for several months to get a lymphedema pump. Her PCP and av specialist are working on getting her one. At this time pt has not anticipated discharge needs. SW to follow as needed. Important Message from [employer] reviewed and discussed with patient. Pt. verbalized understanding and signed the form. Original given to patient and copy placed in patient?s chart.
[2024-01-05] MEDS: BUMETANIDE 10 MG in 0.9 % SODIUM CHLORIDE 160 ML 20 MG IV (11:19)
[2024-01-05] MEDS: FENTANYL 50 MCG/HR PATCH.TD72 100 MCG TD (11:19)
[2024-01-05] MEDS: ACETAMINOPHEN 500 MG TABLET 1000 MG PO (14:04)
[2024-01-05] MEDS: PRIMIDONE 50 MG TABLET 150 MG PO (21:20)
[2024-01-05] MEDS: AMITRIPTYLINE HCL 50 MG TABLET 300 MG PO (21:20)
[2024-01-05] MEDS: PRAMIPEXOLE 1 MG TABLET PO (21:21)
[2024-01-06] VITALS (18 sets, daily range): BP systolic 108–139; BP diastolic 63–85; PULSE 73–113; TEMP 36.3–37; O2SAT 91–100
[2024-01-06] MEDS: HYDROMORPHONE HCL 0.5 MG/0.5 ML SYRINGE IV ×4 (03:13→21:08)
[2024-01-06 06:02] LABS: Basophils Percent Auto 0.5 % (0.2-2.0); Eosinophils Absolute Auto 0.1 10^3/uL (0.0-0.7); Eosinophils Percent Auto 1.6 % (0.9-7.0); Hematocrit 29.8 % (36.0-48.0); Immature Granulocytes Abs Auto 0.07 10^3/uL (0.00-0.03); Immature Granulocytes Pct Auto 0.9 % (0.0-0.5); Lymphocytes Absolute Auto 1.7 10^3/uL (1.2-3.8); Mean Corpuscular HGB Conc 30.2 g/dL (29.9-35.2); Mean Corpuscular Hemoglobin 29.9 pg (26.7-34.0); Mean Platelet Volume 8.8 fL (9.5-13.5); Monocytes Absolute Auto 0.7 10^3/uL (0.3-0.8); Monocytes Percent Auto 7.9 % (1.7-12.0); Neutrophils Absolute Auto 5.7 10^3/uL (1.4-6.5); Neutrophils Percent Auto 69.1 % (43.0-75.0); Platelet Count 305 10^3/uL (150-450); Red Blood Count 3.01 10^6/uL (4.20-5.40); Red Cell Distribution Width 13.2 % (11.0-15.0); White Blood Count 8.2 10^3/uL (4.0-11.0)
[2024-01-06] MEDS: LEVOTHYROXINE SODIUM 100 MCG TABLET PO (06:19)
[2024-01-06 06:42] LABS: Anion Gap 9.2; BUN Creatinine Ratio 29.3; Calcium 8.1 mg/dL (8.5-10.1); Carbon Dioxide 28.1 mmol/L (21.0-32.0); Chloride 102 mmol/L (98-107); Estimated GFR (African America 43 (>=60); Estimated GFR (Non-African Ame 35 (>=60); Glucose 87 mg/dL (74-106); Magnesium 1.8 mg/dL (1.8-2.4); Potassium 4.3 mmol/L (3.5-5.1); Sodium 135 mmol/L (136-145)
[2024-01-06] MEDS: SACUBITRIL/VALSARTAN 24 MG-26 MG TABLET 2 TAB PO ×2 (08:26→21:07)
[2024-01-06] MEDS: DESVENLAFAXINE SUCCINATE 50 MG TAB.ER.24H PO (08:26)
[2024-01-06] MEDS: DOXEPIN HCL 10 MG CAPSULE PO ×2 (08:26→21:08)
[2024-01-06] MEDS: ARIPIPRAZOLE 2 MG TABLET PO (08:26)
[2024-01-06] MEDS: DOXYCYCLINE MONOHYDRATE 100 MG CAPSULE PO ×2 (08:26→21:08)
[2024-01-06] MEDS: CALCIUM ACETATE 667 MG CAPSULE PO ×2 (08:26→16:31)
[2024-01-06] MEDS: LUBIPROSTONE 24 MCG CAPSULE PO (08:27)
[2024-01-06] MEDS: MAGNESIUM OXIDE 400 MG TABLET PO ×2 (08:27→21:07)
[2024-01-06] MEDS: SPIRONOLACTONE 100 MG TABLET PO ×2 (08:27→21:07)
[2024-01-06] MEDS: ESCITALOPRAM 10 MG TABLET 20 MG PO (08:27)
[2024-01-06] MEDS: CEFTRIAXONE 1,000 MG in 0.9 % SODIUM CHLORIDE 50 ML 100 MG IV (08:28)
--- NOTE | 2024-01-06 10:27 | REH.PTDLY ---
Physical Therapy Daily Note PT Daily Note/Assess Start: 01/06/24 10:21 Freq: Status: Active Protocol: Document 01/06/24 10:21 ODIN (Rec: 01/06/24 10:27 ODIN [id number]) Physical Therapy Daily Note/Assessment Time In 09:35 Time Out 09:49 Subjective Pt on phone upon at first attempt, second attempt pt is getting out of bed to use restroom. Therapeutic Activity Minutes (minutes) 11 Therapeutic Activity Units 1 Therapeutic Activity Comments Pt ind with transfers. Gait training 175 feet SBA with rollator and pt taking 1 standing rest break. Pt fatigues in legs as she states she is not used to them being so heavy. Pt ind with bathroom transfers and able to stand for 2 mins at sink. Pt returns to chair with feet elevated at end of rx. Total Therapy Minutes 11 Total Physical Therapy Units 1 Daily Note Summary Pt fatigues with gait in B LEs , no complaints of increased pain. Progressed gait distance today.
--- NOTE | 2024-01-06 10:41 | P.PN_ITS ---
Progress Note: Subjective Subjective Interval history: Patient states her legs do feel better with less pressure. Sinus migraine this morning. Exam Constitutional Vital Signs, click to edit/add: Last Vital Signs Temp 98.5 F 01/06/24 08:41 Pulse 92 H 01/06/24 10:00 Resp 12 01/06/24 08:41 BP 134/82 01/06/24 08:41 Pulse Ox 97 01/06/24 08:41 O2 Del Method Room Air 01/06/24 08:41 O2 Flow Rate 2 01/05/24 04:00 Documenting provider has reviewed patient's vital signs: yes Common normals: no apparent distress Chest Common normals: inspection of chest normal Respiratory Common normals: normal respiratory effort, no retractions and clear to auscultation bilaterally Cardio Common normals: regular rate, regular rhythm and no murmurs Extremity Common normals: abnormal to inspection (3+ edema, erythema present now with evidence for cellulitis left leg) Progress Note: Objective Labs Labs: Short CBC 01/06/24 Range/Units 05:35 WBC 8.2 (4.0-11.0) 10^3/uL Hgb 9.0 L (12.0-16.0) g/dL Hct 29.8 L (36.0-48.0) % Plt Count 305 (150-450) 10^3/uL BMP 01/06/24 05:35 Sodium 135 L Potassium 4.3 Chloride 102 Carbon Dioxide 28.1 BUN 44.0 H Creatinine 1.50 H Glucose 87 Calcium 8.1 L Progress Note: A&P Assessment and Plan (1) Fluid overload: (2) Hypothyroid: (3) Chronic kidney disease: Plan Findings on admission: Patient with significant fluid overload, 20 pounds up from previous weight and this is despite tripling of her diuretics.-Overall that she is improved, she is almost 9 L down, repeat Bumex drip again today. Edema lower extremities-likely secondary to above-just appears to be her lymphedema no other signs of DVT Cellulitis left lower extremity-improved today. Byaylzjdtwzfvc-dswqofywnu-fkheqstg Sinus migraine-we will add Mucinex D. Hypothyroidism-continue with current dosing has had recent labs and normal Acute combined congestive heart failure deteriorated from admission, compared to yesterday-BNP elevated with a significant edema in her shortness of breath that would be consistent with acute combined congestive heart failure-he is improved to baseline today. Chronic kidney disease stage III-this will likely get little bit worse with her diuresis, monitor daily-is actually improved today. Likely related to improve circulation secondary to the diuresis. Cervical lumbar radiculopathy-continue with current medications. Will use as needed Dilaudid as the bed is likely to make her back worse Insomnia-continue with home medications Moderate protein calorie malnutrition-based on NIH guidelines for albumin- dietary management GERD-continue with home medications Admission status: Patient has failed outpatient treatment with oral diuretics, medically necessary treatment will span 2 midnights. Inpatient status. In the past this is taken 3 to 4 days to remove the 20 pounds excess fluid . At least 1 more day of admission.
[2024-01-06] MEDS: BUMETANIDE 10 MG in 0.9 % SODIUM CHLORIDE 160 ML 20 MG IV (11:33)
[2024-01-06] MEDS: PSEUDOEPHEDRNE HCL PO ×2 (11:33→21:07)
[2024-01-06] MEDS: GUAIFENESIN PO ×2 (11:33→21:07)
[2024-01-06] MEDS: PRAMIPEXOLE 1 MG TABLET PO (21:07)
[2024-01-06] MEDS: TIZANIDINE HCL 4 MG TABLET PO (21:07)
[2024-01-06] MEDS: AMITRIPTYLINE HCL 50 MG TABLET 300 MG PO (21:07)
[2024-01-06] MEDS: PRIMIDONE 50 MG TABLET 150 MG PO (21:08)
[2024-01-06] MEDS: ACETAMINOPHEN 500 MG TABLET 1000 MG PO (21:57)
[2024-01-07] VITALS (21 sets, daily range): BP systolic 98–148; BP diastolic 53–82; PULSE 77–108; TEMP 36.4–37.2; O2SAT 91–98
[2024-01-07] MEDS: HYDROMORPHONE HCL 0.5 MG/0.5 ML SYRINGE IV ×3 (02:32→21:36)
[2024-01-07] MEDS: LEVOTHYROXINE SODIUM 100 MCG TABLET PO (05:31)
[2024-01-07 05:45] LABS: Basophils Absolute Auto 0.1 10^3/uL (0.0-0.1); Basophils Percent Auto 0.6 % (0.2-2.0); Eosinophils Absolute Auto 0.1 10^3/uL (0.0-0.7); Eosinophils Percent Auto 1.7 % (0.9-7.0); Hematocrit 29.2 % (36.0-48.0); Immature Granulocytes Abs Auto 0.07 10^3/uL (0.00-0.03); Immature Granulocytes Pct Auto 0.8 % (0.0-0.5); Lymphocytes Absolute Auto 1.8 10^3/uL (1.2-3.8); Lymphocytes Percent Auto 21.6 % (20.5-60.0); Mean Corpuscular HGB Conc 30.8 g/dL (29.9-35.2); Mean Corpuscular Hemoglobin 30.5 pg (26.7-34.0); Mean Platelet Volume 8.9 fL (9.5-13.5); Monocytes Absolute Auto 0.7 10^3/uL (0.3-0.8); Monocytes Percent Auto 8.6 % (1.7-12.0); Neutrophils Absolute Auto 5.6 10^3/uL (1.4-6.5); Neutrophils Percent Auto 66.7 % (43.0-75.0); Platelet Count 291 10^3/uL (150-450); Red Blood Count 2.95 10^6/uL (4.20-5.40); Red Cell Distribution Width 13.1 % (11.0-15.0); White Blood Count 8.3 10^3/uL (4.0-11.0)
[2024-01-07 06:17] LABS: Anion Gap 8.3; BUN Creatinine Ratio 31.3; Calcium 8.5 mg/dL (8.5-10.1); Carbon Dioxide 31.3 mmol/L (21.0-32.0); Chloride 99 mmol/L (98-107); Estimated GFR (African America 44 (>=60); Estimated GFR (Non-African Ame 36 (>=60); Glucose 85 mg/dL (74-106); Magnesium 1.9 mg/dL (1.8-2.4); Potassium 4.6 mmol/L (3.5-5.1); Sodium 134 mmol/L (136-145)
[2024-01-07] MEDS: CALCIUM ACETATE 667 MG CAPSULE PO ×2 (08:43→17:49)
[2024-01-07] MEDS: SACUBITRIL/VALSARTAN 24 MG-26 MG TABLET 2 TAB PO ×2 (08:43→21:35)
[2024-01-07] MEDS: OXYCODONE HCL/ACETAMINOPHEN 5MG/325MG 2 TAB PO (08:43)
[2024-01-07] MEDS: DESVENLAFAXINE SUCCINATE 50 MG TAB.ER.24H PO (08:43)
[2024-01-07] MEDS: PSEUDOEPHEDRNE HCL PO ×2 (08:43→21:36)
[2024-01-07] MEDS: DOXYCYCLINE MONOHYDRATE 100 MG CAPSULE PO ×2 (08:43→21:36)
[2024-01-07] MEDS: GUAIFENESIN PO ×2 (08:43→21:36)
[2024-01-07] MEDS: DOXEPIN HCL 10 MG CAPSULE PO ×2 (08:43→21:35)
[2024-01-07] MEDS: SPIRONOLACTONE 100 MG TABLET PO ×2 (08:43→21:36)
[2024-01-07] MEDS: ARIPIPRAZOLE 2 MG TABLET PO (08:44)
[2024-01-07] MEDS: CEFTRIAXONE 1,000 MG in 0.9 % SODIUM CHLORIDE 50 ML 100 MG IV (08:44)
[2024-01-07] MEDS: MAGNESIUM OXIDE 400 MG TABLET PO ×2 (08:44→21:36)
[2024-01-07] MEDS: LUBIPROSTONE 24 MCG CAPSULE PO (08:44)
[2024-01-07] MEDS: ESCITALOPRAM 10 MG TABLET 20 MG PO (08:44)
--- NOTE | 2024-01-07 09:18 | P.PN_ITS ---
Progress Note: Subjective Subjective Interval history: Leg pain still better than admission but right leg is much improved, left leg though still with significant pain and pressure. Exam Constitutional Vital Signs, click to edit/add: Last Vital Signs Temp 98.3 F 01/07/24 08:58 Pulse 93 H 01/07/24 08:58 Resp 12 01/07/24 08:58 BP 113/75 01/07/24 08:58 Pulse Ox 98 01/07/24 08:58 O2 Del Method Room Air 01/07/24 08:58 O2 Flow Rate 2 01/05/24 04:00 Documenting provider has reviewed patient's vital signs: yes Common normals: no apparent distress Chest Common normals: inspection of chest normal Respiratory Common normals: normal respiratory effort, no retractions and clear to auscultation bilaterally Cardio Common normals: regular rate, regular rhythm and no murmurs Extremity Common normals: abnormal to inspection (2-3+ edema in the right leg, 3+ left, overall improved) Progress Note: Objective Labs Labs: Short CBC 01/07/24 Range/Units 05:10 WBC 8.3 (4.0-11.0) 10^3/uL Hgb 9.0 L (12.0-16.0) g/dL Hct 29.2 L (36.0-48.0) % Plt Count 291 (150-450) 10^3/uL BMP 01/07/24 05:10 Sodium 134 L Potassium 4.6 Chloride 99 Carbon Dioxide 31.3 BUN 46.0 H Creatinine 1.47 H Glucose 85 Calcium 8.5 Progress Note: A&P Assessment and Plan (1) Fluid overload: (2) Hypothyroid: (3) Chronic kidney disease: Plan Findings on admission: Patient with significant fluid overload, 20 pounds up from previous weight and this is despite tripling of her diuretics.-Still responding well to diuretics, 17 L diuresed with a net of 15.8 L Edema lower extremities-likely secondary to above-just appears to be her lymphedema no other signs of DVT-left leg low persisting, will check ultrasound Cellulitis left lower extremity-continues to be improved today. Jmlotplecgvcjt-bgqflyehny-beaaltej Iron deficiency anemia as well as anemia of chronic kidney disease-stable Sinus migraine-we will add Mucinex D. Hyponatremia-continue to monitor down slightly today Hypothyroidism-continue with current dosing has had recent labs and normal Acute combined congestive heart failure deteriorated from admission, compared to yesterday-BNP elevated with a significant edema in her shortness of breath that would be consistent with acute combined congestive heart failure-improved to baseline. At this point I feel the acute combined congestive heart failure has resolved. Chronic kidney disease stage III-continues to improve daily with Bumex drip Cervical lumbar radiculopathy-continue with current medications. Will use as needed Dilaudid as the bed is likely to make her back worse Insomnia-continue with home medications Moderate protein calorie malnutrition-based on NIH guidelines for albumin- dietary management GERD-continue with home medications Admission status: Patient has failed outpatient treatment with oral diuretics, medically necessary treatment will span 2 midnights. Inpatient status. In the past this is taken 3 to 4 days to remove the 20 pounds excess fluid . At least 1 more day of admission.
[2024-01-07] MEDS: ORPHENADRINE 60 MG/ 2 ML VIAL IV ×2 (10:42→21:36)
[2024-01-07] MEDS: BUMETANIDE 10 MG in 0.9 % SODIUM CHLORIDE 160 ML 20 MG IV (10:42)
[2024-01-07] MEDS: ONDANSETRON PF 4 MG/2 ML VIAL IV ×2 (10:45→21:36)
[2024-01-07] MEDS: AMITRIPTYLINE HCL 50 MG TABLET 300 MG PO (21:35)
[2024-01-07] MEDS: PRIMIDONE 50 MG TABLET 150 MG PO (21:35)
[2024-01-07] MEDS: PRAMIPEXOLE 1 MG TABLET PO (21:35)
[2024-01-08] VITALS (11 sets, daily range): BP systolic 98–118; BP diastolic 55–75; PULSE 71–99; TEMP 36.2–36.6; O2SAT 91–99
[2024-01-08] MEDS: ONDANSETRON PF 4 MG/2 ML VIAL IV ×3 (03:31→12:06)
[2024-01-08] MEDS: HYDROMORPHONE HCL 0.5 MG/0.5 ML SYRINGE IV ×3 (03:31→12:06)
[2024-01-08] MEDS: LEVOTHYROXINE SODIUM 100 MCG TABLET PO (05:31)
[2024-01-08 05:36] LABS: Basophils Percent Auto 0.4 % (0.2-2.0); Eosinophils Absolute Auto 0.2 10^3/uL (0.0-0.7); Eosinophils Percent Auto 1.9 % (0.9-7.0); Hematocrit 27.3 % (36.0-48.0); Hemoglobin 8.4 g/dL (12.0-16.0); Immature Granulocytes Abs Auto 0.06 10^3/uL (0.00-0.03); Immature Granulocytes Pct Auto 0.7 % (0.0-0.5); Lymphocytes Absolute Auto 1.3 10^3/uL (1.2-3.8); Lymphocytes Percent Auto 14.2 % (20.5-60.0); Mean Corpuscular HGB Conc 30.8 g/dL (29.9-35.2); Mean Corpuscular Hemoglobin 30.3 pg (26.7-34.0); Mean Corpuscular Volume 98.6 fL (81.0-99.0); Mean Platelet Volume 8.7 fL (9.5-13.5); Monocytes Absolute Auto 0.7 10^3/uL (0.3-0.8); Monocytes Percent Auto 7.6 % (1.7-12.0); Neutrophils Absolute Auto 6.8 10^3/uL (1.4-6.5); Neutrophils Percent Auto 75.2 % (43.0-75.0); Platelet Count 254 10^3/uL (150-450); Red Blood Count 2.77 10^6/uL (4.20-5.40); Red Cell Distribution Width 12.9 % (11.0-15.0)
[2024-01-08 05:48] LABS: Anion Gap 9.6; BUN Creatinine Ratio 32.3; Calcium 7.9 mg/dL (8.5-10.1); Chloride 96 mmol/L (98-107); Estimated GFR (African America 39 (>=60); Estimated GFR (Non-African Ame 32 (>=60); Glucose 95 mg/dL (74-106); Potassium 5.6 mmol/L (3.5-5.1); Sodium 131 mmol/L (136-145)
--- NOTE | 2024-01-08 06:00 | US_ITS ---
[address] [address] Patient Name: JOSE CLEMENTS MRN: [id number] date: 1960 Sex: F Assigned Patient Location: [place] Current Patient Location: [place] Accession/Order Number: [id number] Exam Date: 01/08/2024 09:15 Report Date: 01/08/2024 11:13 At the request of: ANGLE SANTANA Procedure: US venous doppler LE LT EXAM: US venous doppler LE LT HISTORY: leg edema not improving COMPARISON: None. TECHNIQUE: Grayscale, color and Doppler FINDINGS: Region: Left leg Thrombus: Echogenic thrombus identified in the distal femoral and posterior tibial veins Flow: Decreased/absent flow corresponding to thrombus Compressibility: Decreased compressibility corresponding to thrombus Augmentation: Normal proximal augmentation Other: Subcutaneous edema US/US venous doppler LE LT IMPRESSION: Occlusive and nonocclusive deep vein thrombus identified in the left posterior tibial and distal femoral veins Electronically authenticated by: CARLOS ALCALA Date: 01/08/2024 11:13
--- NOTE | 2024-01-08 07:59 | P.DS_ITS ---
DS: Providers Provider Date of admission: 01/04/24 18:12 Primary care physician: Yuri Godinez MD Consults: 01/04/24 17:54 Consult to Pharmacy Routine Consulting Provider: Reason for consultation: Please Widen me when Med Rec is Updated Has provider been notified: No Occupational Therapy Eval and Treat Routine Reason for consultation: Only if needed for Rehab Has provider been notified: No Physical Therapy Eval and Treat Routine Reason for consultation: Eval and Treat Has provider been notified: No 01/05/24 08:07 Physical Therapy Eval and Treat Routine Reason for consultation: for lymphedema therapy while here Has provider been notified: No DS: Diagnosis Discharge Diagnosis (1) Fluid overload: (2) Hypothyroid: (3) Chronic kidney disease: Plan Findings on admission: Patient with significant fluid overload, 20 pounds up from previous weight and this is despite tripling of her diuretics.-Moving at the time of discharge Edema lower extremities-likely secondary to above-just appears to be her lymphedema -improving at the time of discharge Left lower extremity DVT occlusive and nonocclusive Cellulitis left lower extremity-continues to be improved today. Qpcrlfysrcxfkc-llkvravgwg-dddnydab Iron deficiency anemia as well as anemia of chronic kidney disease-stable Sinus migraine-we will add Mucinex D. Hyponatremia-continue to monitor down slightly today Hypothyroidism-continue with current dosing has had recent labs and normal Acute combined congestive heart failure deteriorated from admission, compared to yesterday-BNP elevated with a significant edema in her shortness of breath that would be consistent with acute combined congestive heart failure-resolved at the time of discharge Chronic kidney disease stage III-Baseline at the time of discharge Cervical lumbar radiculopathy-continue with current medications. Insomnia-continue with home medications Moderate protein calorie malnutrition-based on NIH guidelines for albumin- dietary management GERD-continue with home medications Admission status: Patient has failed outpatient treatment with oral diuretics, medically necessary treatment will span 2 midnights. Inpatient status. In the past this is taken 3 to 4 days to remove the 20 pounds excess fluid . At least 1 more day of admission. DS: Summary Hospital Course Hospital Course: Patient was admitted, she has a history of longstanding lymphedema and acute combined congestive heart failure, had seen her in the office 3 days prior to admission, fluid was increasing and she was over 20 pounds from her baseline. We attempted to double up all of her diuretics. IV Bumex, and Aldactone. This was unsuccessful as her weight continues to climb, she was recommended for evaluation in the emergency room. She was admitted to there. She also developed left lower extremity cellulitis secondary to the significant peripheral edema secondary to the lymphedema and acute combined congestive heart failure. From a heart failure standpoint she was improving, BNP is back to normal, she diuresed 22 L, with a net of 20.4 L out. Weight is almost back to her baseline. Her swelling is much improved, still has some peripheral swelling in the left leg especially, ultrasound did confirm DVT occlusive and nonocclusive, she has been off of her Eliquis. Will restart the Eliquis, she has cellulitis of the lower extremity that is continuing to improve as well. She be discharged home in improving condition. Medications see list. Follow-up with me in the office within the next week. Status at Discharge Overall status at discharge: patient is not back to baseline Time Spent with Patient Time attestation: Total time spent providing and/or coordinating discharge services: Time spent: greater than 30 minutes Exam Constitutional Vital Signs, click to edit/add: Last Vital Signs Temp 97.2 F L 01/08/24 07:49 Pulse 73 01/08/24 07:54 Resp 14 01/08/24 07:49 BP 98/55 01/08/24 07:49 Pulse Ox 95 01/08/24 07:54 O2 Del Method Room Air 01/08/24 07:49 O2 Flow Rate 2 01/05/24 04:00 Documenting provider has reviewed patient's vital signs: yes Common normals: no apparent distress Chest Common normals: inspection of chest normal Respiratory Common normals: normal respiratory effort, no retractions and clear to auscultation bilaterally Cardio Common normals: regular rate, regular rhythm and no murmurs Extremity Common normals: abnormal to inspection (2+ edema in the right leg, 3+ left, overall improved) Right lower extremity: lower leg (Cellulitis left leg improving) DS: Data Data Completed and Pending Labs on day of discharge: Labs from last 24 hours 01/08/24 05:22 WBC 9.0 RBC 2.77 L Hgb 8.4 L Hct 27.3 L MCV 98.6 MCH 30.3 MCHC 30.8 RDW 12.9 Plt Count 254 MPV 8.7 L Neut % (Auto) 75.2 H Lymph % (Auto) 14.2 L [place] % (Auto) 7.6 Eos % (Auto) 1.9 Baso % (Auto) 0.4 Neut # (Auto) 6.8 H Lymph # (Auto) 1.3 [place] # (Auto) 0.7 Eos # (Auto) 0.2 Baso # (Auto) 0.0 Abs Immat Gran (auto) 0.06 H Imm/Tot Granulo (auto) 0.7 H Sodium 131 L Potassium 5.6 H Chloride 96 L Carbon Dioxide 31.0 Anion Gap 9.6 BUN 53.0 H Creatinine 1.64 H Est GFR ( Amer) 39 L Est GFR (Non-Af Amer) 32 L BUN/Creatinine Ratio 32.3 Glucose 95 Calcium 7.9 L Discharge Plan Discharge Disposition: Home, Self-Care Condition: Good Discharge Medications: New cefdinir 300 mg capsule 600 mg PO DAILY 10 Days Qty: 20 0RF doxycycline monohydrate 100 mg capsule 100 mg PO BID 10 Days Qty: 20 0RF Eliquis 5 mg tablet 5 mg PO Q12H Qty: 60 11RF Rx Instructions: 2 po BID for 1 week then 1 po BID for life Continued aripiprazole [Abilify] 2 mg tablet 2 mg PO DAILY bumetanide 1 mg tablet 3 mg PO Q12H PRN (Reason: SWELLING) Hold Instructions: Resume on 02/16/23. until cleared by PCP butorphanol 10 mg/mL spray,non-aerosol 1 spray INTRANASAL .QD PRN (Reason: pain) desvenlafaxine succinate 50 mg tablet extended release 24 hr 50 mg PO DAILY diclofenac sodium 1 % gel 2 g TOPICAL .QD PRN (Reason: PAIN/INFLAMMATION) doxepin 10 mg capsule 10 mg PO BID escitalopram oxalate 20 mg tablet 20 mg PO DAILY azelastine 0.05 % drops 1 drp OPHTHALMIC (EYE) DAILY fentanyl 100 mcg/hr patch 72 hour 1 patch transdermal Q72H pramipexole 1 mg tablet 1 mg PO .qd alprazolam 0.5 mg tablet 0.5 mg PO BID PRN (Reason: anxiety) amitriptyline 150 mg tablet 300 mg PO BEDTIME calcium acetate(phosphat bind) 667 mg capsule 667 mg PO BIDWM levothyroxine 100 mcg tablet 100 mcg PO DAILY Linzess 290 mcg capsule 290 mcg PO DAILY Hold Instructions: PCP order primidone 50 mg tablet 150 mg PO BEDTIME tizanidine [Zanaflex] 4 mg tablet 4 mg PO Q6H PRN (Reason: muscle spasticity) oxycodone-acetaminophen 5-325 mg tablet 2 tab PO Q6H PRN (Reason: pain) Entresto 49-51 mg tablet 1 tab PO BID spironolactone 50 mg tablet 50 mg PO DAILY Discontinued Eliquis 2.5 mg tablet 2.5 mg PO BID Hold Instructions: PCP order Activity: increase activity as tolerated Diet: advance to your usual diet Print Language: Macedonian Patient Instructions: Doxycycline (By mouth), Apixaban (By mouth) (Eliquis) Forms: Portal Instructions Follow Up Appointments: January 10 @ 1:15pm with Dr. Godinez [phone] Discharge Date/Time: 01/08/24 14:04
[2024-01-08] MEDS: MAGNESIUM OXIDE 400 MG TABLET PO (08:18)
[2024-01-08] MEDS: DOXEPIN HCL 10 MG CAPSULE PO (08:18)
[2024-01-08] MEDS: CALCIUM ACETATE 667 MG CAPSULE PO (08:18)
[2024-01-08] MEDS: CEFTRIAXONE 1,000 MG in 0.9 % SODIUM CHLORIDE 50 ML 100 MG IV (08:18)
[2024-01-08] MEDS: SACUBITRIL/VALSARTAN 24 MG-26 MG TABLET 2 TAB PO (08:18)
[2024-01-08] MEDS: ORPHENADRINE 60 MG/ 2 ML VIAL IV (08:19)
[2024-01-08] MEDS: ARIPIPRAZOLE 2 MG TABLET PO (08:19)
[2024-01-08] MEDS: DESVENLAFAXINE SUCCINATE 50 MG TAB.ER.24H PO (08:19)
[2024-01-08] MEDS: LUBIPROSTONE 24 MCG CAPSULE PO (08:19)
[2024-01-08] MEDS: GUAIFENESIN PO (08:19)
[2024-01-08] MEDS: PSEUDOEPHEDRNE HCL PO (08:19)
[2024-01-08] MEDS: ESCITALOPRAM 10 MG TABLET 20 MG PO (08:19)
[2024-01-08] MEDS: DOXYCYCLINE MONOHYDRATE 100 MG CAPSULE PO (08:20)
--- NOTE | 2024-01-08 08:55 | CM.NOTE ---
Rounds made with Dr. Godinez. Likely discharge after ultrasound today. Follow up with PCP this week. Verbalizes understanding.
--- NOTE | 2024-01-08 09:58 | SWNOTE1 ---
2nd notice of Important Message from Medicare reviewed and discussed with patient. Pt. verbalized understanding and had no questions/concerns at this time.
--- NOTE | 2024-01-08 10:42 | REH.PTDLY ---
Physical Therapy Daily Note PT Daily Note/Assess Start: 01/06/24 10:21 Freq: Status: Active Protocol: Document 01/08/24 10:36 ODIN (Rec: 01/08/24 10:42 ODIN [id number]) Physical Therapy Daily Note/Assessment Time In 10:00 Time Out 10:12 Subjective Pt just had US done to lower L leg per pt report to see if there is a DVT, was really sore to the touch when they were performing. Hoping to go home later today per pt. Therapeutic Exercise Minutes (minutes) 3 Therapeutic Exercise Units 0 Therapeutic Exercise Treatment Instructed in [place] seated exs 10x ea with HR, LAQ, marching, hip abd and hip add squeezes for improved strength and mobility. Pt reports her legs are moving a lot better compared to last week as she struggled to lift legs out in front of her. Therapeutic Activity Minutes (minutes) 9 Therapeutic Activity Units 1 Bed Mobility Ability Independent Chair Transfer Ability Independent Therapeutic Activity Comments Pt able to perform transfers independently. Gait training 175 feet with pt needing 2 standing rest breaks. Complains of some SOB at half way point, however pt had been speaking the entire time she ambulated, does better when just focused on gait. Total Therapy Minutes 12 Total Physical Therapy Units 1 Daily Note Summary Pt has some fatigue with gait and post rx in [place]. Demonstrates good balance with rollator with gait. Awaiting US results as this is pending her DC today.
[2024-01-08] MEDS: FENTANYL 50 MCG/HR PATCH.TD72 100 MCG TD (10:58)
[2024-01-08] MEDS: APIXABAN 5 MG TABLET 10 MG PO (12:06)
--- NOTE | 2024-01-08 12:22 | PC.NURSE ---
dr mata updated on pts duplex results, received dc order. pt updated.
--- NOTE | 2024-01-09 13:58 | CM.DCFOLLOWU ---
Person spoke with:patient How are you feeling? better How is your pain? better, has legs wrapped now Did you understand your discharge instructions? yes Do you have any questions about your discharge instructions? no Were you given any prescriptions at discharge? yes Were you able to get your prescriptions filled? yes Do you understand how to take your medications as ordered? yes Do you have any questions about your follow up appointment and do you plan to keep your follow up appointment? no questions, follow up Is there anything else that you would like to discuss? no Questions/Comments/Concerns/Other: Had questions about her lymphedema pump, she is going to call over to the clinic and ask.
== END 2024-01-08 14:04 | disposition home or self-care (01) | DRG 640 ==
LOC: ER 17:29 → MS 01-05 07:00
PROVIDERS: Admitting Provider Family Medicine; Emergency Provider Student in an Organized Health Care Education/Training Program; PCP Family Medicine; Visit Provider Family Medicine
DX: E87.70 Fluid overload, unspecified (principal); I50.43 Acute on chronic combined systolic (congestive) and diastolic (congestive) heart failure; I13.0 Hypertensive heart and chronic kidney disease with heart failure and stage 1 through stage 4 chronic kidney disease, or unspecified chronic kidney disease; L03.116 Cellulitis of left lower limb; E44.0 Moderate protein-calorie malnutrition; I82.442 Acute embolism and thrombosis of left tibial vein; I82.412 Acute embolism and thrombosis of left femoral vein; I89.0 Lymphedema, not elsewhere classified; E03.9 Hypothyroidism, unspecified; N18.30 Chronic kidney disease, stage 3 unspecified; M54.12 Radiculopathy, cervical region; M54.16 Radiculopathy, lumbar region; G47.00 Insomnia, unspecified; K21.9 Gastro-esophageal reflux disease without esophagitis; F32.A Depression, unspecified; M19.90 Unspecified osteoarthritis, unspecified site; F41.9 Anxiety disorder, unspecified; Z86.73 Personal history of transient ischemic attack (TIA), and cerebral infarction without residual deficits; J44.9 Chronic obstructive pulmonary disease, unspecified; I25.2 Old myocardial infarction; Z90.710 Acquired absence of both cervix and uterus; Z98.84 Bariatric surgery status; Z96.651 Presence of right artificial knee joint; Z90.49 Acquired absence of other specified parts of digestive tract; E83.42 Hypomagnesemia; G43.809 Other migraine, not intractable, without status migrainosus; D50.9 Iron deficiency anemia, unspecified; D63.1 Anemia in chronic kidney disease; E87.1 Hypo-osmolality and hyponatremia; Z68.35 Body mass index [BMI] 35.0-35.9, adult
CPT/HCPCS: 36415; 36591; 71045; 80048; 80053; 81001; 83735; 83880; 84484; 85025; 93005; 93971; 94761; 96365; 96366; 96367; 96375; 96376; 97161; 97165; 97530; 99285; J0696; J1170; J2360; J2405

== ENCOUNTER 2024-01-11 13:48 | Outpatient (OUT) | payer MEDICARE, MEDICAID, SELFPAY ==
--- NOTE | 2024-01-11 14:03 | XR_ITS ---
The [address] [address] Patient Name: JOSE CLEMENTS MRN: [id number] date: 1960 Sex: F Assigned Patient Location: [facility] Current Patient Location: Accession/Order Number: [id number] Exam Date: 01/11/2024 14:15 Report Date: 01/12/2024 06:43 At the request of: ANGLE SANTANA Procedure: XR cervical spine 2-3V EXAMINATION: XR cervical spine 2-3V HISTORY: Unspecified Displaced Fracture Of Second Cervical Vertebra COMPARISON: XR cervical spine 11/11/2023, CT cervical spine 11/11/2023 FINDINGS: BONES: 11 mm right lateral listhesis of C1 in relation to C2. Left convex curvature of cervical spine. Mild grade 1 anterolisthesis of C4-C5 and C5 on C6. Multilevel moderate degenerative facet arthropathy. DISC SPACES: Moderate disc space narrowing C6-C7, C7-T1. PARASPINOUS: Negative. No paraspinous abnormality is seen. OTHER: Negative. XR/XR cervical spine 2-3V IMPRESSION: 1. Known C2 dens fracture which is not visible on today's study. 2. Greater rightward migration of C1 in relation to C2 suggesting further movement of the dens raising concern for instability. Consider CT cervical spine for additional evaluation. Electronically authenticated by: BUNNY ZEPEDA Date: 01/12/2024 06:43
== END 2024-01-11 13:49 | disposition home or self-care (01) ==
LOC: RAD 13:57
PROVIDERS: PCP Family Medicine; Visit Provider Family Medicine
DX: S12.100A Unspecified displaced fracture of second cervical vertebra, initial encounter for closed fracture (principal)
CPT/HCPCS: 72040

== ENCOUNTER 2024-01-19 10:45 | Outpatient (RCR) | payer MEDICARE, MEDICAID, SELFPAY ==
--- NOTE | 2023-12-27 10:50 | PC.NURSE ---
1010 Arrival ambulatory to chair 1, alert oriented, here for port draw. 1015 Patient placed in recliner, rt chest port accessed using 20 ga james needle under sterile technique, excellent blood return, labs drawn, line flushed with normal saline followed by heparin lock flush solution, port deaccessed, cotton ball and bandaid applied. Patient tolerated procedure well. 1020 Released ambulatory.
[2023-12-27] MEDS: HEPARIN SODIUM (PORCINE) PF LOCK FLUSH 500 UNIT/5 ML SYRINGE IV (11:07)
[2023-12-27 12:31] LABS: Basophils Percent Auto 0.3 % (0.2-2.0); Eosinophils Absolute Auto 0.1 10^3/uL (0.0-0.7); Eosinophils Percent Auto 1.5 % (0.9-7.0); Hematocrit 27.8 % (36.0-48.0); Hemoglobin 8.5 g/dL (12.0-16.0); Immature Granulocytes Abs Auto 0.08 10^3/uL (0.00-0.03); Immature Granulocytes Pct Auto 1.1 % (0.0-0.5); Lymphocytes Absolute Auto 0.7 10^3/uL (1.2-3.8); Mean Corpuscular HGB Conc 30.6 g/dL (29.9-35.2); Mean Corpuscular Hemoglobin 30.2 pg (26.7-34.0); Mean Corpuscular Volume 98.9 fL (81.0-99.0); Mean Platelet Volume 9.7 fL (9.5-13.5); Monocytes Absolute Auto 0.6 10^3/uL (0.3-0.8); Monocytes Percent Auto 8.3 % (1.7-12.0); Neutrophils Absolute Auto 5.8 10^3/uL (1.4-6.5); Neutrophils Percent Auto 78.8 % (43.0-75.0); Platelet Count 304 10^3/uL (150-450); Red Blood Count 2.81 10^6/uL (4.20-5.40); Red Cell Distribution Width 14.2 % (11.0-15.0); White Blood Count 7.4 10^3/uL (4.0-11.0)
[2023-12-27 12:49] LABS: Alanine Aminotransferase 24 U/L (14-59); Albumin Globulin Ratio 0.8; Alkaline Phosphatase 270 U/L (46-116); Anion Gap 17.7; Aspartate Amino Transferase 21 U/L (15-37); BUN Creatinine Ratio 44.4; Bilirubin Total 0.4 mg/dL (0.2-1.0); Calcium 8.1 mg/dL (8.5-10.1); Carbon Dioxide 20.2 mmol/L (21.0-32.0); Chloride 99 mmol/L (98-107); Estimated GFR (African America 27 (>=60); Estimated GFR (Non-African Ame 22 (>=60); Globulin 3.7 g/dL; Glucose 86 mg/dL (74-106); Potassium 3.9 mmol/L (3.5-5.1); Sodium 133 mmol/L (136-145); Total Protein 6.7 g/dL (6.4-8.2)
[2024-01-19 15:02] LABS: Alanine Aminotransferase 22 U/L (14-59); Albumin Level 3.2 g/dL (3.4-5.0); Alkaline Phosphatase 304 U/L (46-116); Anion Gap 15.5; Aspartate Amino Transferase 23 U/L (15-37); BUN Creatinine Ratio 41.7; Bilirubin Total 0.3 mg/dL (0.2-1.0); Calcium 8.1 mg/dL (8.5-10.1); Carbon Dioxide 23.9 mmol/L (21.0-32.0); Chloride 100 mmol/L (98-107); Estimated GFR (African America 27 (>=60); Estimated GFR (Non-African Ame 22 (>=60); Globulin 3.3 g/dL; Glucose 82 mg/dL (74-106); Potassium 4.4 mmol/L (3.5-5.1); Sodium 135 mmol/L (136-145); Total Protein 6.5 g/dL (6.4-8.2)
[2024-01-19 15:06] LABS: Basophils Percent Auto 0.6 % (0.2-2.0); Eosinophils Absolute Auto 0.1 10^3/uL (0.0-0.7); Eosinophils Percent Auto 1.8 % (0.9-7.0); Hematocrit 30.7 % (36.0-48.0); Hemoglobin 9.6 g/dL (12.0-16.0); Immature Granulocytes Abs Auto 0.03 10^3/uL (0.00-0.03); Immature Granulocytes Pct Auto 0.4 % (0.0-0.5); Lymphocytes Absolute Auto 1.3 10^3/uL (1.2-3.8); Lymphocytes Percent Auto 17.8 % (20.5-60.0); Mean Corpuscular HGB Conc 31.3 g/dL (29.9-35.2); Mean Corpuscular Hemoglobin 30.1 pg (26.7-34.0); Mean Corpuscular Volume 96.2 fL (81.0-99.0); Mean Platelet Volume 9.3 fL (9.5-13.5); Monocytes Absolute Auto 0.5 10^3/uL (0.3-0.8); Monocytes Percent Auto 7.5 % (1.7-12.0); Neutrophils Absolute Auto 5.2 10^3/uL (1.4-6.5); Neutrophils Percent Auto 71.9 % (43.0-75.0); Platelet Count 362 10^3/uL (150-450); Red Blood Count 3.19 10^6/uL (4.20-5.40); Red Cell Distribution Width 13.2 % (11.0-15.0); White Blood Count 7.2 10^3/uL (4.0-11.0)
== END 2024-01-24 23:59 | disposition home or self-care (01) ==
LOC: INF 10:45
PROVIDERS: PCP Family Medicine; Visit Provider Family Medicine
DX: M48.062 Spinal stenosis, lumbar region with neurogenic claudication (principal); M54.16 Radiculopathy, lumbar region; S12.100D Unspecified displaced fracture of second cervical vertebra, subsequent encounter for fracture with routine healing; I10 Essential (primary) hypertension; D64.9 Anemia, unspecified; E87.1 Hypo-osmolality and hyponatremia
CPT/HCPCS: 36591; 72125; 72141; 80053; 83930; 85025; G0463; J1642

== ENCOUNTER 2024-01-19 13:45 | Outpatient (OUT) | payer MEDICARE, MEDICAID, SELFPAY ==
--- NOTE | 2024-01-19 13:47 | MR_ITS ---
The [address] [address] Patient Name: JOSE CLEMENTS MRN: [facility]:[id number] date: 1960 Sex: F Assigned Patient Location: MRI Current Patient Location: Accession/Order Number: [id number] Exam Date: 01/19/2024 14:00 Report Date: 01/20/2024 13:01 At the request of: LILLY OSORIO Procedure: MR cervical spine wo con MR cervical spine wo con, 01/19/2024 2:00 PM EDT INDICATION: Closed Displaced Fracture Of Second Cervical Vertebra COMPARISON: CT of the cervical spine dated 01/19/2024 TECHNIQUE: Multiplanar, multisequential MRI images of cervical spine were obtained without contrast. FINDINGS: There is a type II dens fracture better evaluated in CT of the cervical spine of the same date. No significant retropulsion is noted. There is normal physiologic cervical lordosis. The vertebral heights are relatively preserved. The cervicomedullary junction is unremarkable. No definite signal abnormality within the spinal cord is noted. There are mild disc osteophyte complex associated with uncovertebral joint arthrosis from C3 to T1. At the level of C2-C3, there is no neuroforaminal narrowing or canal stenosis. At the level of C3-C4, there is no neuroforaminal narrowing and no canal stenosis. At the level of C4-C5, there is moderate right and mild left neuroforaminal narrowing and no canal stenosis. At the level of C5-C6, there is no neuroforaminal narrowing and no canal stenosis. At the level of C6-C7, there is moderate right neuroforaminal narrowing and no canal stenosis. There is a meningeal cyst at origin of the left C8 measuring 9 x 8 mm. Otherwise, the level of C7-T1 is unremarkable No definite muscular or ligamentous injury is noted. MR/MR cervical spine wo con IMPRESSION: Mild degenerative changes of the cervical spine in particular at C4-C5 and C6-C7. Type II dens fracture with no significant retropulsion better evaluated at CT of the cervical spine of the same date. Electronically authenticated by: NGOC HENRY Date: 01/20/2024 13:01
--- NOTE | 2024-01-19 13:48 | CT_ITS ---
The [address] [address] Patient Name: JOSE CLEMENTS MRN: [facility]:[id number] date: 1960 Sex: F Assigned Patient Location: MRI Current Patient Location: MRI Accession/Order Number: [id number] Exam Date: 01/19/2024 14:41 Report Date: 01/19/2024 15:30 At the request of: LILLY OSORIO Procedure: CT cervical spine wo con EXAMINATION: CT cervical spine wo con HISTORY: Closed Displaced Fracture Of Second Cervical Vertebra COMPARISON: No relevant comparison available. TECHNIQUE: Axial, Coronal, and Sagittal images were created without IV contrast. Dose reduction techniques were achieved by using automated exposure control and/or adjustment of mA and/or kV according to patient size and/or use of iterative reconstruction technique. FINDINGS: VERTEBRAL BODIES: Prior fracture through base of dens now with 9 mm rightward subluxation of the dens, C1, and skull and relation to C2 and remainder cervical spine. 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 FACET JOINTS: Multilevel marked degenerative facet arthropathy with possible osseous fusion of C3-4 on the right. No fracture or disruption. DISCS: Moderate narrowing C6-7 with posterior disc bulging resulting in moderate central canal and right neural foramen narrowing. CENTRAL CANAL: No evidence of hemorrhage. PARASPINAL AREA: No visible mass. CT/CT cervical spine wo con IMPRESSION: 1. Remote fracture of C2 dens at its base, first seen on 09/29/2023 which has continued to migrate rightward, now displaced 9 mm to the right as well as the attached C1 and skull base indicating an unstable spine. There is moderate narrowing of the central canal at this level due to the left to right offset. Findings have again progressed since patient's most recent CT study on 12/14/2023. Findings are being called to the ordering provider at this time. Electronically authenticated by: BUNNY ZEPEDA Date: 01/19/2024 15:30
== END 2024-01-19 13:46 | disposition home or self-care (01) ==
LOC: MRI 13:45
PROVIDERS: PCP Family Medicine; Visit Provider Orthopaedic Surgery Orthopaedic Surgery of the Spine
DX: S12.100D Unspecified displaced fracture of second cervical vertebra, subsequent encounter for fracture with routine healing (principal)
CPT/HCPCS: 72125; 72141

== ENCOUNTER 2024-01-21 15:39 | Emergency (ER) | payer MEDICARE, MEDICAID, SELFPAY ==
[2024-01-21] VITALS (58 sets, daily range): BP systolic 70–145; BP diastolic 44–79; PULSE 61–96; TEMP 37; O2SAT 68–100; BMI 37.5
--- OUTSIDE RECORDS SUMMARY | 2024-01-21 15:52 | XMS_ITS | CCD ---
Author Organization [facility]iniSyut Care Team Providers Care Almond Blancher Name Role Phone NIRMAL LEWIS Admitting Unavailable [...] Referring Unavailable ANGLE SANTANA Primary Care Unavailable TadDonnie blairariel Unavailable Sue Leiva Unavailable MD Angle Santana [...] APARICIO Consulting Unavailable JODY BUITRAGO Consulting Unavailable DANICA ALEJO Consulting Unavailable CARLOS [...] Unavailable HOY ., DR BARBOUR Attending Unavailable [place], DR CARLOS Castillo Consulting Unavailable LAKSHMIPATHY ., [...] DR BARBOUR Attending Unavailable LISACHELA Attending Unavailable LISAZANDRA Admitting Unavailable HOY ., DR BARBOUR Primary [...] ., DR ANIKA Blair Admitting Unavailable DEJESUS . NNAMDI Consulting Unavailable LAKSHMIPATHY ., NARENDRANATH Consulting Yumiko vailable LAKSHMIPATHY ., NARENDRANATH Attending Yumiko vailable LAKSHMIPATHY ., NARENDANDRZEJATH Admitting [...] HARP ., DR ANIKA Blair Attending Unavailable AGUBOSIMBRIAN Consulting Unavailable HOY ., DR BARBOUR Primary Care Unavailable HARP ., DR ANIKA Blair Attending Unavailable HARP ., DR ANIKA Blair Admitting Unavailable HARP ., DR ANIKA Blair Consulting Unavailable LAKSHMIPATHY ., NARENDANDRZEJATH Attending Yumiko [...] Unavailable HOY ., DR BARBOUR Consulting Unavailable APRIL VITALE Consulting Unavailable HOY ., DR BARBOUR Consulting [...] BARBOUR Primary Care Unavailable HARP ., DR ANIAK Blair Admitting Unavailable HARP ., DR ANIKA Blair Consulting Unavailable HARP ., DR ANIKA Blair Attending Unavailable SHAMA ALEXANDRA Consulting Unavailable BUNNY MCMILLAN Consulting Unavailable HOY ., DR BARBOUR Admolena Unavailable HOY ., DR BARBOUR Primary Care Unavailable HOY ., DR BARBOUR Consulting Unavailable MARIAHY ., DR BARBOUR Attending Unavailable MD Angle Santana Primary Care Provider [phone] MD Beatriz Oh Admit Provider DO Jim Randhawa Attending Provider MD [place] Other Provider Jim Randhawa Attending Unavailable Beatriz Oh Admolena Unavailable [place] Consulting Unavailable Angle Santana Primary Care Unavailable Favian Helm Admitting Unavailable Favian Helm Attending Unavailable Angle Santana Primary Care Unavailable HOY, ANGLE M Referring Unavailable HOY, ANGLE M Primary Care Unavailable BALJINDER HUGHES Referring Unavailable HOY, ANGLE M Primary Care Unavailable ARMAND ACUNA Consulting Unavailable LOUKAMERE Attending Unavailable LOUKA, MERE Admitting Unavailable PIRKL, RACHEL Referring Unavailable GANGWANI, RAYRAY HARP Referring Unavailab le BARAZI, MACIE Attending Unavailable SONNYDUNCAN Attending Unavailable ALONZOSHERLY Referring Unavailable MOUKARBEL, BENJIE Attending Unavailable JOANA, RHIANNON Attending Unavailable MOUKARBELBENJIE Attending Unavailable GANGWANI, RAYRAY HARP Referring Unavailab le GANGWANI, RAYRAY HARP Referring Unavailab le ALGHOTHANI, MOHAMAD Referring Unavailable ALGHOTHANI, MOHAMAD Referring Unavailable ZENZ, JUDAH Referring Unavailable HOY, ANLGE Referring Unavailable GANGWANI, RAYRAY HARP Attending Unavailab le YNES, RADHA Admitting Unavailable GANGWANI, RAYRAY HARP Consulting Unavailab le Allergies Allergy Classification Reported Allergen(s) Allergy Type Date of Onset Reaction(s) Facility (11 sources) Amoxicillin Drug Allergy 10-29-19 23 Unknown, [facility] (5 sources) Amoxicillin / Clavulanate Drug Allergy Unknown [email or web address] [facility] [employer] Other (13 sources) Povidone-Iodine; Translations: [POVIDONE-IODINE] Drug Allergy 08-15-19 17 Unknown, [facility] (9 sources) Sulfamethoxazole / Trimethoprim Drug Allergy Unknown [employer] Other (1 source) sulfaSALAzine Drug Allergy Unknown [facility] [employer] Other (7 sources) Amoxicillin / Clavulanate Drug Allergy 11-26-19 [address] [facility] (1 source) Bumetanide Drug Allergy 03-22-20 [address] [facility] (1 source) Cephalexin Drug Allergy 01-15-20 [address] [facility] (2 sources) gabapentin; Translations: [GABAPENTIN] Drug Allergy 08-19-19 [address] [facility] (3 sources) Povidone-Iodine Drug Allergy 11-26-19 [address] [facility] (1 source) pregabalin; Translations: [LYRICA] Drug Allergy 08-19-[address] [facility] (7 sources) Sulfonamides (Antibiotic); Translations: [SULFA (SULFONAMIDE ANTIBIOTICS)] Drug allergy (disorder) 11-26-19 13 Rash [facility] (1 source) Sulfonamide Drug allergy Unknown [email or web address] [facility] [employer] Other (7 sources) Substance with sulfonamide structure and antibacterial mechanism of action (substance) Drug allergy Unknown [employer] Other (3 sources) Clavulanate; Translations: [clavulanic acid] Drug Allergy 10-29-19 23 Diarrhea [facility] (1 source) Ciprofloxacin Drug Allergy 05-26-20 [facility] (1 source) Amoxicillin Drug Allergy 04-04-20 23 [facility] (1 source) Povidone-Iodine Drug Allergy 04-04-20 [facility] (1 source) Sulfamethoxazole Drug Allergy 04-04-20 23 [facility] (1 source) Sulfonamides (Antibiotic) Drug allergy (disorder) 04-04-20 [facility] (1 source) Trimethoprim Drug Allergy 04-04-20 [facility] (2 sources) AMOXICILLIN-POT CLAVULANATE; Translations: [AMOXICILLIN-POT CLAVULANATE] Propensity to adverse reactions to drug (disorder) 06-13-20 14 [facility] Repository (1 source) carvedilol; Translations: [CARVEDILOL] Drug Allergy 12-21-[address] [facility] Repository (1 source) Cephalexin; Translations: [CEPHALEXIN] Drug Allergy 06-13-[address] [facility] Rep[facility] (1 source) Ciprofloxacin; Translations: [CIPROFLOXACIN] Drug Allergy 10-11-[address] [facility] Repository (1 source) Iodine; Translations: [IODINE] Drug Allergy 11-28-[address] [facility] Rep[facility] (1 source) pregabalin; Translations: [PREGABALIN] Drug Allergy 10-11-[address] [facility] Rep[facility] (1 source) Sulfamethoxazole / Trimethoprim; Translations: [SULFAMETHOXAZOLE-T RIMETHOPRIM] Drug Allergy 11-28-[address] [facility] Rep[facility] Medications Current Medications Medication Drug [...] 2022 11:00pm take 1 capsule by mo ut every twelve hours DULoxetine HCl 60 MG [...] 10-28-2022 take 1 capsule by mo [facility] once daily Linaclotide (Linzess) 290 mcg [...] needed Orally every 4 hrs PRN Active [id number] 200 actuat albuterol 0.09 mg/actuat metered dose [...] meals Orally Four times a day Active Mq-Pbhtdtj-Gdp-Iron Fm-Fa-Vitk (Multi For Her) 18 mg iron-600 mcg-80 mcg Tablet (2 sources) Start: 08-31-2018 End: 06-30-2023 take 1 tablet by mouth once daily Un-Jhquwqo-Min-Iron Fm-Fa-Vitk (Multi For Her) 18 mg iron-600 mcg-80 mcg Tablet Discontinued 1 TAB PO Daily August 31, 2018 12:00am June 30, 2023 12:26am Start: 08-31-2018 take 1 tablet by joseph th once daily Sa-Skxdddz-Ozw-Iron Fm-Fa-Vitk (Multi For Her) 18 mg iron-600 mcg-80 mcg Tablet Active 1 TAB PO Daily August 31, 2018 1:00am potassium chloride 10 meq extended release oral capsule (6 sources) Start: 08-31-2018 End: 06-30-2023 take 10 mEq by mouth once daily Potassium Chloride Discontinued 10 MEQ PO Daily August 31, 2018 12:00am June 30, 2023 12:30am take 1 tablet by joseph every twenty-four hours Klor-Con 10 10 MEQ [...] disease (3 sources) Atherosclerotic heart disease of [place] coronary artery without angina pectoris; Translations: [ASHD [place] W/O ANGINA PECTORIS] Onset: 3 Chronic [...] medical drugs (1 source) Adverse effect of uszvjzlxlpv-xioohuqrvx-c nzyme inhibitors, initial encounter; Translations: [ADVERSE EFFECT [...] 1 Resolved: 1 Episodic Headache; including migraine (11 sources) Refractory migraine with aura; Translations: [Persistent migraine aura without cerebral infarction, intractable, without status migrainosus] Chronic Headache; including migraine (5 sources) Headache; including migraine; Translations: [HEADACHE UNSPECIFIED] Onset: 3 Heart valve disorders (9 sources) Rheumatic disorders of both mitral and tricuspid valves; Translations: [Rheumatic tricuspid insufficiency] Onset: 3 Chronic Hypertension with complications and secondary hypertension (20 sources) Hypertensive renal disease; Translations: [Hypertensive chronic kidney disease with stage 1 through stage 4 chronic kidney disease, or unspecified chronic kidney disease] Onset: 1 Resolved: 1 Chronic Malaise and fatigue (7 sources) Asthenia; Translations: [Weakness] Onset: 2 09-04-2018 [...] aftercare (2 sources) Polypharmacy ; Translations: [Other snf (current) drug therapy] 09-04-2018 Episodic Other aftercare (1 source) Other snf (current) drug therapy; Translations: [OTH SECTION MAINTAINER 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 THERAPY] Onset: 3 Episodic Other [...] Chronic Other diseases of kidney and ureters (1 source) Disorder of kidney and ureter, unspecified; Translations: [DISORDER KIDNEY AND URETER UNS] Onset: 3 Episodic Other diseases of veins and lymphatics (2 [...] non-traumatic joint disorders (5 sources) Pain in left knee; Translations: [PAIN IN LEFT KNEE] Onset: 3 Episodic Other non-traumatic joint disorders (1 source) Pain in left hip; Translations: [PAIN IN [...] Value Interpretation Reference Range Facility Office Visiton 12-21-2023 Follow-up visit [id number] Loren Moser A 1960 F Date Provider Department Center 12/21/2023 BENJIE LERMA YVONNE Barrios [facility] Family History Family history unknown: Yes Level of Service:98907 MT OFFICE/OUTPATIENT ESTABLISHED MOD MDM 30 MIN Normal [facility] Orders Onlyon 12-21-2023 Orders Only [id number] Loren Moser A 1960 F Date Provider Department Center 12/21/2023 MIKAYLA BURGER YVONNE [facility] Family History Family history unknown: Yes Normal [facility] Basic Metab w/rfx MGon 09-30 Anion gap [Moles/Vol] 8 mmol/L Low 9-16 [facility] Comment on above: Performed By: #### C DP, BMPX #### [facility] [address] [place] [address] General Partner: Michael Chen MD Calcium [Mass/Vol] 8.1 mg/dL Low 8.6-10.4 [facility] Comment on above: Performed By: #### C DP, BMPX #### [facility] [employer] [address] [place] [address] General Partner: Mihcael Chen MD Chloride [Moles/Vol] 101 mmol/L Normal 98-107 [facility] Comment on above: Performed By: #### C DP, BMPX #### [facility] [address] [place] [address] General Partner: Michael Chen MD CO2 [Moles/Vol] 23 mmol/L Normal 20-31 [facility] Comment on above: Performed By: #### C DP, BMPX #### [facility] [employer] [address] [place] [address] General Partner: Michael Chen MD Creatinine [Mass/Vol] 1.5 mg/dL High 0.50-0.90 [facility] Comment on above: Performed By: #### C DP, BMPX #### [facility] [employer] [address] [place] [address] General Partner: Michael Chen MD GFR/1.73 sq M.predicted among non-blacks MDRD (S/P/Bld) [Vol rate/Area] 39 mL/min/{1.73_m2} Low >60 [facility] Comment on above: Result Comment: These results [...] Performed By: #### C DP, BMPX #### [facility] [employer] [address] [place] [address] General Partner: Michael Chen MD Glucose [Mass/Vol] 100 mg/dL High 74-99 [facility] Comment on above: Performed By: #### C DP, BMPX #### [facility] [employer] [address] [place] [address] General Partner: Michael Chen MD Potassium [Moles/Vol] 4.4 mmol/L Normal 3.7-5.3 [facility] Comment on above: Performed By: #### C DP, BMPX #### [facility] [address] [place] [address] General Partner: Michael Chen MD Sodium [Moles/Vol] 132 mmol/L Low 136-145 [facility] Comment on above: Performed By: #### C DP, BMPX #### [facility] [employer] [address] [place] [address] General Partner: Michael Chen MD Urea nitrogen [Mass/Vol] 56 mg/dL High 8-23 [facility] Comment on above: Performed By: #### C DP, BMPX #### [place] [address] General Partner: Michael Chen MD CBC with Diffon 10-01-2023 Abs. Basophil 0.03 k/uL Normal 0.00-0.20 [facility] Comment on above: Performed By: #### C DP, BMPX #### [place] [address] General Partner: Michael Chen MD Abs.Imm.Granulocyte 0.05 k/uL Normal 0.00-0.30 [facility] Comment on above: Performed By: #### C DP, BMPX #### [place] [address] General Partner: Michael Chen MD Abs.Neutrophil (Seg) 6.55 k/uL Normal 1.50-8.10 [facility] Comment on above: Performed By: #### C DP, BMPX #### [place] [address] General Partner: Michael Chen MD Basophils/100 WBC (Bld) 0 % Normal 0-2 [facility] Comment on above: Performed By: #### C DP, BMPX #### [place] [address] General Partner: Michael Chen MD Eosinophils (Bld) [#/Vol] 0.10 10*3/uL Normal 0.00-0.44 [facility] Comment on above: Performed By: #### C DP, BMPX #### [place] [address] General Partner: Michael Chen MD Eosinophils/100 WBC (Bld) 1 % Normal 1-4 [facility] Comment on above: Performed By: #### C DP, BMPX #### [facility] [employer] [address] [place] [address] General Partner: Michael Chen MD Erythrocyte distribution width (RBC) [Ratio] 13.6 % Normal 11.8-14.4 [facility] Comment on above: Performed By: #### C DP, BMPX #### [facility] [employer] [address] [place] [address] General Partner: Michael Chen MD Hematocrit (Bld) [Volume fraction] 27.9 % Low 36.3-47.1 [facility] Comment on above: Performed By: #### C DP, BMPX #### [facility] [address] [place] [address] General Partner: Michael Chen MD Hemoglobin (Bld) [Mass/Vol] 8.4 g/dL Low 11.9-15.1 [facility] Comment on above: Performed By: #### C DP, BMPX #### [address] [address] General Partner: Michael Chen MD Immature granulocytes/100 WBC (Bld) 1 % High 0 [facility] Comment on above: Performed By: #### C DP, BMPX #### [address] [address] General Partner: Michael Chen MD Lymphocytes (Bld) [#/Vol] 0.94 10*3/uL Low 1.10-3.70 [facility] Comment on above: Performed By: #### C DP, BMPX #### [facility] [facility] [address] [place] [address] General Partner: Michael Chen MD Lymphocytes/100 WBC (Bld) 11 % Low 24-43 [facility] Comment on above: Performed By: #### C DP, BMPX #### [facility] [employer] [address] [place] [address] General Partner: Michael Chen MD MCH (RBC) [Entitic mass] 30.5 pg Normal 25.2-33.5 [facility] Comment on above: Performed By: #### C DP, BMPX #### [address] [address] General Partner: Michael Chen MD MCHC (RBC) [Mass/Vol] 30.1 g/dL Normal 28.4-34.8 [facility] Comment on above: Performed By: #### C DP, BMPX #### [address] [address] General Partner: Michael Chen MD MCV (RBC) [Entitic vol] 101.5 fL Normal 82.6-102.9 [facility] Comment on above: Performed By: #### C DP, BMPX #### [address] [address] General Partner: Michael Chen MD Monocytes (Bld) [#/Vol] 0.54 10*3/uL Normal 0.10-1.20 [facility] Comment on above: Performed By: #### C DP, BMPX #### [address] [address] General Partner: Michael Chen MD Monocytes/100 WBC (Bld) 7 % Normal 3-12 [facility] Comment on above: Performed By: #### C DP, BMPX #### [address] [address] General Partner: Michael Chen MD Neutrophil (Seg) 80 % High 36-65 [facility] Comment on above: Performed By: #### C DP, BMPX #### [address] [address] General Partner: Michael Chen MD NRBC Automated 0.0 per 100 WBC Normal 0.0 [facility] Comment on above: Performed By: #### C DP, BMPX #### [place] [address] General Partner: Michael Chen MD Platelet mean volume (Bld) [Entitic vol] 8.9 fL Normal 8.1-13.5 [facility] Comment on above: Performed By: #### C DP, BMPX #### [place] [address] General Partner: Michael Chen MD Platelets (Bld) [#/Vol] 281 10*3/uL Normal 138-453 [facility] Comment on above: Performed By: #### C DP, BMPX #### [place] [address] General Partner: Michael Chen MD RBC (Bld) [#/Vol] 2.75 10*6/uL Low 3.95-5.11 [facility] Comment on above: Performed By: #### C DP, BMPX #### [address] [address] General Partner: Michael Chen MD WBC (Bld) [#/Vol] 8.2 10*3/uL Normal 3.5-11.3 [facility] Comment on above: Performed By: #### C DP, BMPX #### [place] [address] General Partner: Michael Chen MD Basic Metab w/rfx MGon 09-29 Anion gap [Moles/Vol] 12 mmol/L Normal 9-16 [facility] Comment on above: Performed By: #### L IVP, BMPX, REJEC, BNP #### [address] [address] General Partner: Michael Chen MD Calcium [Mass/Vol] 8.2 mg/dL Low 8.6-10.4 [facility] Comment on above: Performed By: #### L IVP, BMPX, REJEC, BNP #### [email or web address] [address] [place] [address] General Partner: Michael Chen MD Chloride [Moles/Vol] 103 mmol/L Normal 98-107 [facility] Comment on above: Performed By: #### L IVP, BMPX, REJEC, BNP #### [employer] [facility] [place] [address] General Partner: Michael Chen MD CO2 [Moles/Vol] 23 mmol/L Normal 20-31 [facility] Comment on above: Performed By: #### L IVP, BMPX, REJEC, BNP #### [facility] [address] [place] [address] General Partner: Michael Chen MD Creatinine [Mass/Vol] 1.6 mg/dL High 0.50-0.90 [facility] Comment on above: Performed By: #### L IVP, BMPX, REJEC, BNP #### [facility] [address] [place] [address] General Partner: Michael Chen MD GFR/1.73 sq M.predicted among non-blacks MDRD (S/P/Bld) [Vol rate/Area] 35 mL/min/{1.73_m2} Low >60 [facility] Comment on above: Result Comment: These results [...] #### L IVP, BMPX, REJEC, BNP #### [email or web address] [address] [place] [address] General Partner: Michael Chen MD Glucose [Mass/Vol] 89 mg/dL Normal 74-99 [facility] Comment on above: Performed By: #### L IVP, BMPX, REJEC, BNP #### [address] [address] General Partner: Michael Chen MD Potassium [Moles/Vol] 4.6 mmol/L Normal 3.7-5.3 [facility] Comment on above: Result Comment: SPEC IMEN SLIGHTLY HEMOLYZED, RESULTS MAY BE ADVERSELY AFFECTED. Performed By: #### L IVP, BMPX, REJEC, BNP #### [address] [address] General Partner: Michael Chen MD Sodium [Moles/Vol] 138 mmol/L Normal 136-145 [facility] Comment on above: Performed By: #### L IVP, BMPX, REJEC, BNP #### [address] [address] General Partner: Michael Chen MD Urea nitrogen [Mass/Vol] 57 mg/dL High 8-23 [facility] Comment on above: Performed By: #### L IVP, BMPX, REJEC, BNP #### [address] [address] General Partner: Michael Chen MD Brain Natri. Peptideon 09-29 Natriuretic peptide B (Bld) [Mass/Vol] 1428 pg/mL High 0-300 [facility] Comment on above: Result Comment: An a ge-independent cutoff point of 300 pg/ml has a 98% negative predictive value excluding acute heart failure. Performed By: #### L IVP, BMPX, REJEC, BNP #### [address] [address] General Partner: Michael Chen MD Liver Profileon 09-30-2023 Albumin [Mass/Vol] 3.5 g/dL Normal 3.5-5.2 [facility] Comment on above: Performed By: #### L IVP, BMPX, REJEC, BNP #### [employer] [address] [place] [address] General Partner: Michael Chen MD Albumin/Glob Ratio 2.0 Normal 1.0-2.5 [facility] Comment on above: Performed By: #### L IVP, BMPX, REJEC, BNP #### [facility] [address] [place] [address] General Partner: Michael Chen MD Alkaline Phos 301 U/L High 35-104 [facility] Comment on above: Performed By: #### L IVP, BMPX, REJEC, BNP #### [facility] [address] [place] [address] General Partner: Michael Chen MD ALT [Catalytic activity/Vol] 17 U/L Normal 10-35 [facility] Comment on above: Performed By: #### L IVP, BMPX, REJEC, BNP #### [facility] [address] [place] [address] General Partner: Michael Chen MD AST [Catalytic activity/Vol] 33 U/L Normal 10-35 [facility] Comment on above: Result Comment: SPEC IMEN SLIGHTLY HEMOLYZED, RESULTS MAY BE ADVERSELY AFFECTED. Performed By: #### L IVP, BMPX, REJEC, BNP #### [email or web address] [address] [place] [address] General Partner: Michael Chen MD Bilirubin [Mass/Vol] 0.2 mg/dL Normal 0.00-1.20 [facility] Comment on above: Performed By: #### L IVP, BMPX, REJEC, BNP #### [email or web address] [address] [place] [address] General Partner: Michael Chen MD Bilirubin, Indirect 0.1 mg/dL Normal 0.0-1.0 [facility] Comment on above: Performed By: #### L IVP, BMPX, REJEC, BNP #### [facility] [employer] [address] [place] [address] General Partner: Michael Chen MD Bilirubin.indirect [Mass/Vol] mg/dL Normal 0.00-0.30 [facility] Comment on above: Performed By: #### L IVP, BMPX, REJEC, BNP #### [facility] [employer] [address] [place] [address] General Partner: Michael Chen MD Globulin (S) [Mass/Vol] 2.1 g/dL Normal [facility] Comment on above: Performed By: #### L IVP, BMPX, REJEC, BNP #### [facility] [facility] [address] [place] [address] General Partner: Michael Chen MD Protein [Mass/Vol] 5.6 g/dL Low 6.6-8.7 [facility] Comment on above: Performed By: #### L IVP, BMPX, REJEC, BNP #### [facility] [facility] [address] [place] [address] General Partner: Michael Chen MD Specimen Rejectionon 024 Reason for rejection Unable to perform testing: Specimen clotted. Normal [facility] Comment on above: Performed By: #### L IVP, BMPX, REJEC, BNP #### [facility] [employer] [address] [place] [address] General Partner: Michael Chen MD Source of sample .BLOOD Normal [facility] Comment on above: Performed By: #### L IVP, BMPX, REJEC, BNP #### [facility] [facility] [address] [place] [address] General Partner: Michael Chen MD Test ordered CDP Normal [facility] Comment on above: Performed By: #### L IVP, BMPX, REJEC, BNP #### [facility] [address] [place] [address] General Partner: Michael Chen MD XR CERVICAL SPINE (2-3 [...] Carlos Peralta MD 09/30/23 Final result Normal [facility] XR CHEST PORTABLEon 09-30-19 XR CHEST PORTABLE [...] Carlos Peralta MD 09/30/23 Final result Normal [facility] Office Visiton 08-16-2023 Follow-up visit [id number] Loren Moser 1960 F Date Provider Department Center 08/16/2023 [id number] GARCIA CARD [facility] Family History Family history unknown: Yes Level of Service:73657 MT OFFICE/OUTPATIENT ESTABLISHED MOD MDM 30 MIN Normal [facility] Documentationon 08-07-2023 Documentation [id number] Loren Moser 1960 F Date Provider Department Center 08/07/2023 13586-CTZIKIMAPARNA ONEIL [facility] Family History Family history unknown: Yes Reason for Visit and Comments: HF inpatient satisfaction survey sent. [Other] Normal [facility] 36on 08-04-2023 36 DC to home on 08/03/19 024 Spoke to pt on 08/04/2023 Med rec completed with pts Delio Pt will need to reschedule appt with cardiology, she will call [facility] cardiology to reschedule and will try to get in next week Normal [facility] 30on 08-03-2023 30 Problem: Pain - [...] including repeat lab results as appropriate Normal [facility] BASIC METABOLIC PANELon 02- Anion gap [Moles/Vol] 14 mmol/L Normal 7-20 [facility] Comment on above: Performed By: #### L [id number] #### [facility] [address] [place] [address] Calcium [Mass/Vol] 8.6 mg/dL Normal 8.6-10.[address] [facility] Comment on above: Performed By: #### L [id number] #### [facility] ([facility]) [address] [place] [address] Chloride [Moles/Vol] 96 mmol/L Low 98-107 [facility] Comment on above: Performed By: #### L [id number] #### [facility] ([facility]) [address] [place] [address] CO2 [Moles/Vol] 30 mmol/L Normal 21-31 [facility] Comment on above: Performed By: #### L [id number] #### [facility] ([facility]) [address] [place] [address] Creatinine [Mass/Vol] 2.67 mg/dL High 0.60-1.20 [facility] Comment on above: Performed By: #### L [id number] #### [facility] ([facility]) [address] [place] [address] GLOMERULAR FILTRATION RATE ML/MIN/1.73 SQ M.PREDICTED 19.7 mL/min/1.73m*2 Low >60.[address] [facility] Comment on above: Result Comment: The [facility]???s estimated glomerular filtration rate (eGFR) will [...] individuals. Performed By: #### L [id number] #### [facility] ([facility]) [address] [place] [address] Glucose [Mass/Vol] 78 mg/dL Normal 70-[address] [facility] Comment on above: Performed By: #### L [id number] #### [facility] ([facility]) [address] [place] [address] Potassium [Moles/Vol] 3.9 mmol/L Normal 3.5-5.1 [facility] Comment on above: Performed By: #### L [id number] #### [facility] ([facility]) [address] [place] [address] Sodium [Moles/Vol] 136 mmol/L Normal 136-[address] [facility] Comment on above: Performed By: #### L [id number] #### [facility] ([facility]) [address] [place] [address] Urea nitrogen [Mass/Vol] 94 mg/dL High 7-[address] [facility] Comment on above: Performed By: #### L [id number] #### [facility] ([facility]) [address] [place] [address] UREA NITROGEN/CREATININE (MASS RATIO) IN SER/PLAS 35.[address] [facility] Comment on above: Performed By: #### L [id number] #### [facility] ([facility]) [address] [place] [address] CBC WITH AUTO DIFFERENTIALon 08-03-2023 Basophils (Bld) [#/Vol] 0.03 10*3/uL Normal 0.00-0.[address] [facility] Comment on above: Performed By: #### L [id number] #### [facility] ([facility]) [address] [place] [address] Basophils/100 WBC (Bld) 0.3 % Normal 0.0-1.[address] [facility] Comment on above: Performed By: #### L [id number] #### [facility] ([facility]) [address] [place] [address] Eosinophils (Bld) [#/Vol] 0.14 10*3/uL Normal 0.00-0.[address] [facility] Comment on above: Performed By: #### L [id number] #### [facility] ([facility] [address] [place] [address] Eosinophils/100 WBC (Bld) 1.4 % Normal 0.0-6.[address] [facility] Comment on above: Performed By: #### L [id number] #### [facility] ([facility]) [address] [place] [address] Erythrocyte distribution width (RBC) [Ratio] 12.7 % Normal 11.5-15.[address] [facility] Comment on above: Performed By: #### L [id number] #### [facility] ([facility]) [address] [place] [address] ERYTHROCYTE MEAN CORPUSCULAR HEMOGLOBIN CONCENTRATION (G/DL) BY AUTOMATED 31.6 g/dL Low 32.0-35.[address] [facility] Comment on above: Performed By: #### L [id number] #### [facility] ([facility]) [address] [place] [address] Hematocrit (Bld) [Volume fraction] 29.7 % Low 36.0-48.[address] [facility] Comment on above: Performed By: #### L [id number] #### [facility] ([facility]) [address] [place] [address] Hemoglobin (Bld) [Mass/Vol] 9.4 g/dL Low 12.0-15.[address] [facility] Comment on above: Performed By: #### L [id number] #### [facility] ([facility]) [address] [place] [address] Immature granulocytes (Bld) [#/Vol] 0.06 10*3/uL Normal 0.00-0.[address] [facility] Comment on above: Performed By: #### L [id number] #### [facility] ([facility]) [address] [place] [address] Immature granulocytes/100 WBC (Bld) 0.6 % Normal 0.0-1.[address] [facility] Comment on above: Performed By: #### L [id number] #### [facility] ([facility]) [address] [place] [address] Lymphocytes (Bld) [#/Vol] 0.79 10*3/uL Low 1.20-4.[address] [facility] Comment on above: Performed By: #### L [id number] #### [facility] ([facility]) [address] [place] [address] Lymphocytes/100 WBC (Bld) 8.0 % Low 20.0-45.[address] [facility] Comment on above: Performed By: #### L [id number] #### [facility] ([facility]) [address] [place] [address] MCH (RBC) [Entitic mass] 31.4 pg Normal 27.0-33.[address] [facility] Comment on above: Performed By: #### L [id number] #### [facility] ([facility]) [address] [place] [address] MCV (RBC) [Entitic vol] 99.3 fL High 82.0-98.[address] [facility] Comment on above: Performed By: #### L [id number] #### [facility] ([facility]) [address] [place] [address] Monocytes (Bld) [#/Vol] 0.46 10*3/uL Normal 0.10-1.[address] [facility] Comment on above: Performed By: #### L [id number] #### [facility] ([facility]) [address] [address] Monocytes/100 WBC (Bld) 4.6 % Low 5.0-12.[address] [facility] Comment on above: Performed By: #### L [id number] #### [facility] ([facility]) [address] [place] [address] Neutrophils (Bld) [#/Vol] 8.42 10*3/uL High 1.60-7.[address] [facility] Comment on above: Performed By: #### L [id number] #### [facility] ([facility]) [address] [place] [address] Neutrophils/100 WBC (Bld) 85.1 % High 40.0-72.[address] [facility] Comment on above: Performed By: #### L [id number] #### [facility] ([facility]) [address] [place] [address] NRBC (PER 100 WBCS) BY AUTOMATED COUNT 0.0 % Normal [address] [facility] Comment on above: Performed By: #### L [id number] #### [facility] ([facility]) [address] [place] [address] PLATELETS (10*3/UL) IN BLOOD AUTOMATED COUNT 211 10*3/uL Normal 150-[address] [facility] Comment on above: Performed By: #### L [id number] #### [facility] ([facility]) [address] [place] [address] RBC (Bld) [#/Vol] 2.99 10*6/uL Low 3.80-5.00 [facility] Comment on above: Performed By: #### L [id number] #### [facility] ([facility]) [address] [place] [address] WBC (Bld) [#/Vol] 9.90 10*3/uL Normal 4.00-10.60 [facility] Comment on above: Performed By: #### L [id number] #### [facility] ([facility]) [address] [place] [address] 30on 08-02-2023 30 Daily Case Managemen t [...] Consult Orders (From admission, onward) Start Ordered 07/28/23 1919 Inpatient consult to Cardiology Once Specialty: Cardiology Provider: (Not yet assigned) Question Answer Comment Consulting Group CARDIOLOGY TEAM Reason for Consult? chf exacerbation Level of Consultation Consultation and Management 07/28/23 1918 Ancillary Consults (From admission, onward) Start Ordered 07/28/23 1919 Inpatient consult to Social Work Once Provider: (Not yet assigned) Question Answer Comment Select all services needed for the patient Long-Term Facility (30 day convalescent stay) Please indicate [...] OT? Answer: Discharge Planning 08/01/[address] [facility] 30 Problem: Pain - Adul t [...] within normal limits Recent Flowsheet Documentation Taken 08/02/2023 0813 by Eliz Steward RN Electrolytes maintained within [...] symptoms of volume excess or deficit Normal [facility] BASIC METABOLIC PANELon 02-0 Anion gap [Moles/Vol] 10 mmol/L Normal 7-20 [facility] Comment on above: Performed By: #### L [id number] ####[facility] ([facility])[address] [place] [address] Calcium [Mass/Vol] 8.5 mg/dL Low 8.6-10.[address] [facility] Comment on above: Performed By: #### L [id number] ####[facility] ([facility])[address] [place] [address] Chloride [Moles/Vol] 96 mmol/L Low 98-107 [facility] Comment on above: Performed By: #### L [id number] ####[facility] ([facility])[address] [place] [address] CO2 [Moles/Vol] 33 mmol/L High 21-31 [facility] Comment on above: Performed By: #### L [id number] ####[facility] ([facility])[address] [place] [address] Creatinine [Mass/Vol] 2.73 mg/dL High 0.60-1.20 [facility] Comment on above: Performed By: #### L [id number] ####[facility] ([facility])[address] [place] [address] GLOMERULAR FILTRATION RATE ML/MIN/1.73 SQ M.PREDICTED 19.2 mL/min/1.73m*2 Low >60.[address] [facility] Comment on above: Result Comment: The [facility]???s estimated glomerular filtration rate (eGFR) will [...] of individuals. Performed By: #### L [id number] ####[facility] ([facility])[address] [facility] [place] [address] Glucose [Mass/Vol] 114 mg/dL High 70-[address] [facility] Comment on above: Performed By: #### L [id number] ####[facility] ([facility])[address] [facility] [place] [address] Potassium [Moles/Vol] 3.7 mmol/L Normal 3.5-5.1 [facility] Comment on above: Performed By: #### L [id number] ####[facility] ([facility])[address] [place] [address] Sodium [Moles/Vol] 135 mmol/L Low 136-[address] [facility] Comment on above: Performed By: #### L [id number] ####[facility] ([facility])[address] [place] [address] Urea nitrogen [Mass/Vol] 90 mg/dL High 7-[address] [facility] Comment on above: Performed By: #### L [id number] ####[facility] ([facility])[address] [facility] [place] [address] UREA NITROGEN/CREATININE (MASS RATIO) IN SER/PLAS 33.[address] [facility] Comment on above: Performed By: #### L [id number] ####[facility] ([facility])[address] [place] [address] CBC WITH AUTO DIFFERENTIALon 08-02-2023 Basophils (Bld) [#/Vol] 0.03 10*3/uL Normal 0.00-0.[address] [facility] Comment on above: Performed By: #### L [id number] #### [facility] ([facility]) [address] [place] [address] Basophils/100 WBC (Bld) 0.4 % Normal 0.0-1.[address] [facility] Comment on above: Performed By: #### L [id number] #### [facility] ([facility]) [address] [place] [address] Eosinophils (Bld) [#/Vol] 0.13 10*3/uL Normal 0.00-0.[address] [facility] Comment on above: Performed By: #### L [id number] #### [facility] ([facility]) [address] [place] [address] Eosinophils/100 WBC (Bld) 1.7 % Normal 0.0-6.[address] [facility] Comment on above: Performed By: #### L [id number] #### [facility] ([facility]) [address] [place] [address] Erythrocyte distribution width (RBC) [Ratio] 12.9 % Normal 11.5-15.[address] [facility] Comment on above: Performed By: #### L [id number] #### [facility] ([facility]) [address] [place] [address] ERYTHROCYTE MEAN CORPUSCULAR HEMOGLOBIN CONCENTRATION (G/DL) BY AUTOMATED 31.1 g/dL Low 32.0-35.[address] [facility] Comment on above: Performed By: #### L [id number] #### [facility] ([facility]) [address] [place] [address] Hematocrit (Bld) [Volume fraction] 29.6 % Low 36.0-48.[address] [facility] Comment on above: Performed By: #### L [id number] #### [facility] ([facility]) [address] [place] [address] Hemoglobin (Bld) [Mass/Vol] 9.2 g/dL Low 12.0-15.[address] [facility] Comment on above: Performed By: #### L [id number] #### [facility] ([facility]) [address] [place] [address] Immature granulocytes (Bld) [#/Vol] 0.05 10*3/uL Normal 0.00-0.[address] [facility] Comment on above: Performed By: #### L [id number] #### [facility] ([facility]) [address] [place] [address] Immature granulocytes/100 WBC (Bld) 0.7 % Normal 0.0-1.[address] [facility] Comment on above: Performed By: #### L [id number] #### [facility] ([facility]) [address] [place] [address] Lymphocytes (Bld) [#/Vol] 1.62 10*3/uL Normal 1.20-4.[address] [facility] Comment on above: Performed By: #### L [id number] #### [facility] ([facility] [address] [address] Lymphocytes/100 WBC (Bld) 21.7 % Normal 20.0-45.[address] [facility] Comment on above: Performed By: #### L [id number] #### [facility] ([facility]) [address] [address] MCH (RBC) [Entitic mass] 30.9 pg Normal 27.0-33.[address] [facility] Comment on above: Performed By: #### L [id number] #### [facility] ([facility]) [address] [place] [address] MCV (RBC) [Entitic vol] 99.3 fL High 82.0-98.[address] [facility] Comment on above: Performed By: #### L [id number] #### [facility] ([facility]) [address] [place] [address] Monocytes (Bld) [#/Vol] 0.53 10*3/uL Normal 0.10-1.[address] [facility] Comment on above: Performed By: #### L [id number] #### [facility] ([facility]) [address] [place] [address] Monocytes/100 WBC (Bld) 7.1 % Normal 5.0-12.[address] [facility] Comment on above: Performed By: #### L [id number] #### [facility] ([facility]) [address] [place] [address] Neutrophils (Bld) [#/Vol] 5.10 10*3/uL Normal 1.60-7.[address] [facility] Comment on above: Performed By: #### L [id number] #### [facility] ([facility]) [address] [place] [address] Neutrophils/100 WBC (Bld) 68.4 % Normal 40.0-72.[address] [facility] Comment on above: Performed By: #### L [id number] #### [facility] ([facility]) [address] [place] [address] NRBC (PER 100 WBCS) BY AUTOMATED COUNT 0.0 % Normal [address] [facility] Comment on above: Performed By: #### L [id number] #### [facility] ([facility]) [address] [place] [address] PLATELETS (10*3/UL) IN BLOOD AUTOMATED COUNT 249 10*3/uL Normal 150-[address] [facility] Comment on above: Performed By: #### L [id number] #### [facility] ([facility]) [address] [place] [address] RBC (Bld) [#/Vol] 2.98 10*6/uL Low 3.80-5.00 [facility] Comment on above: Performed By: #### L [id number] #### [facility] ([facility]) [address] [place] [address] WBC (Bld) [#/Vol] 7.46 10*3/uL Normal 4.00-10.60 [facility] Comment on above: Performed By: #### L [id number] #### [facility] [address] [place] [address] MAGNESIUMon 08-02-2023 Magnesium [Mass/Vol] 2.1 mg/dL Normal 1.9-2.7 [facility] Comment on above: Performed By: #### L [id number] ####[facility] ([facility] [place] [address] PHOSPHORUSon 08-02-2023 Magnesium [Mass/Vol] 5.3 mg/dL High 2.5-5.0 [facility] Comment on above: Performed By: #### L [id number] ####[facility] ([facility] [place] [address] BASIC METABOLIC PANELon Anion gap [Moles/Vol] 11 mmol/L Normal 7-20 [facility] Comment on above: Performed By: #### L [id number] ####[facility] ([facility])[address] [place] [address] Calcium [Mass/Vol] 8.9 mg/dL Normal 8.6-10.[address] [facility] Comment on above: Performed By: #### L [id number] ####[facility] ([facility])[address] [place] [address] Chloride [Moles/Vol] 98 mmol/L Normal 98-107 [facility] Comment on above: Performed By: #### L [id number] ####[facility] ([facility])[address] [place] [address] CO2 [Moles/Vol] 32 mmol/L High 21-31 [facility] Comment on above: Performed By: #### L [id number] ####[facility] ([facility])[address] [place] [address] Creatinine [Mass/Vol] 2.68 mg/dL High 0.60-1.20 [facility] Comment on above: Performed By: #### L [id number] ####[facility] ([facility])[address] [place] [address] GLOMERULAR FILTRATION RATE ML/MIN/1.73 SQ M.PREDICTED 19.6 mL/min/1.73m*2 Low >60.[address] [facility] Comment on above: Result Comment: The [facility]???s estimated glomerular filtration rate (eGFR) will [...] of individuals. Performed By: #### L [id number] ####[facility] ([facility])[address] [place] [address] Glucose [Mass/Vol] 71 mg/dL Normal 70-[address] [facility] Comment on above: Performed By: #### L [id number] ####[facility] ([facility])[address] [place] [address] Potassium [Moles/Vol] 4.1 mmol/L Normal 3.5-5.1 [facility] Comment on above: Performed By: #### L [id number] ####[facility] ([facility] [place] [address] Sodium [Moles/Vol] 137 mmol/L Normal 136-[address] [facility] Comment on above: Performed By: #### L [id number] ####[facility] ([facility])[address] [place] [address] Urea nitrogen [Mass/Vol] 87 mg/dL High 7-[address] [facility] Comment on above: Performed By: #### L [id number] ####[facility] ([facility])[address] [place] [address] UREA NITROGEN/CREATININE (MASS RATIO) IN SER/PLAS 32.[address] [facility] Comment on above: Performed By: #### L [id number] ####[facility] ([facility])[address] [place] [address] CBC WITH AUTO DIFFERENTIALon 08-01-2023 Basophils (Bld) [#/Vol] 0.03 10*3/uL Normal 0.00-0.[address] [facility] Comment on above: Performed By: #### L [id number] ####[facility] ([facility])[address] [place] [address] Basophils/100 WBC (Bld) 0.4 % Normal 0.0-1.[address] [facility] Comment on above: Performed By: #### L [id number] ####[facility] ([facility])[address] [place] [address] Eosinophils (Bld) [#/Vol] 0.11 10*3/uL Normal 0.00-0.[address] [facility] Comment on above: Performed By: #### L [id number] ####[facility] ([facility])[address] [place] [address] Eosinophils/100 WBC (Bld) 1.5 % Normal 0.0-6.[address] [facility] Comment on above: Performed By: #### L [id number] ####[facility] ([facility])[address] [place] [address] Erythrocyte distribution width (RBC) [Ratio] 12.8 % Normal 11.5-15.[address] [facility] Comment on above: Performed By: #### L [id number] ####[facility] ([facility])[address] [place] [address] ERYTHROCYTE MEAN CORPUSCULAR HEMOGLOBIN CONCENTRATION (G/DL) BY AUTOMATED 31.1 g/dL Low 32.0-35.[address] [facility] Comment on above: Performed By: #### L [id number] ####[facility] ([facility])[address] [place] [address] Hematocrit (Bld) [Volume fraction] 31.8 % Low 36.0-48.[address] [facility] Comment on above: Performed By: #### L [id number] ####[facility] ([facility])[address] [place] [address] Hemoglobin (Bld) [Mass/Vol] 9.9 g/dL Low 12.0-15.[address] [facility] Comment on above: Performed By: #### L [id number] ####[facility] ([facility])[address] [place] [address] Immature granulocytes (Bld) [#/Vol] 0.05 10*3/uL Normal 0.00-0.[address] [facility] Comment on above: Performed By: #### L [id number] ####[facility] ([facility])[address] [place] [address] Immature granulocytes/100 WBC (Bld) 0.7 % Normal 0.0-1.[address] [facility] Comment on above: Performed By: #### L [id number] ####[facility] ([facility])[address] [place] [address] Lymphocytes (Bld) [#/Vol] 1.55 10*3/uL Normal 1.20-4.[address] [facility] Comment on above: Performed By: #### L [id number] ####[facility] ([facility])[address] [place] [address] Lymphocytes/100 WBC (Bld) 21.0 % Normal 20.0-45.[address] [facility] Comment on above: Performed By: #### L [id number] ####[facility] ([facility])[address] [place] [address] MCH (RBC) [Entitic mass] 30.7 pg Normal 27.0-33.[address] [facility] Comment on above: Performed By: #### L [id number] ####[facility] ([facility] [place] [address] MCV (RBC) [Entitic vol] 98.5 fL High 82.0-98.[address] [facility] Comment on above: Performed By: #### L [id number] ####[facility] ([facility])[address] [place] [address] Monocytes (Bld) [#/Vol] 0.55 10*3/uL Normal 0.10-1.[address] [facility] Comment on above: Performed By: #### L [id number] ####[facility] ([facility])[address] [place] [address] Monocytes/100 WBC (Bld) 7.5 % Normal 5.0-12.[address] [facility] Comment on above: Performed By: #### L [id number] ####[facility] ([facility])[address] [place] [address] Neutrophils (Bld) [#/Vol] 5.08 10*3/uL Normal 1.60-7.[address] [facility] Comment on above: Performed By: #### L [id number] ####[facility] ([facility])[address] [place], [place] [address] Neutrophils/100 WBC (Bld) 68.9 % Normal 40.0-72.[address] [facility] Comment on above: Performed By: #### L [id number] ####[facility] ([facility])[address] [place], [place] [address] NRBC (PER 100 WBCS) BY AUTOMATED COUNT 0.0 % Normal [address] [facility] Comment on above: Performed By: #### L [id number] ####[facility] (BEAKER)[address] [place], [place] [address] PLATELETS (10*3/UL) IN BLOOD AUTOMATED COUNT 270 10*3/uL Normal 150-[address] [facility] Comment on above: Performed By: #### L [id number] ####[facility] ([facility]AKER)[address] [place], [place] [address] RBC (Bld) [#/Vol] 3.23 10*6/uL Low 3.80-5.00 [facility] Comment on above: Performed By: #### L [id number] ####[facility] ([facility]ER)[address] [place] [address] WBC (Bld) [#/Vol] 7.37 10*3/uL Normal 4.00-10.60 [facility] Comment on above: Performed By: #### L [id number] ####[facility] ([facility] [place] [address] MAGNESIUMon 08-01-2023 Magnesium [Mass/Vol] 1.8 mg/dL Low 1.9-2.7 [facility] Comment on above: Performed By: #### L [id number] ####[facility] ([facility])[address] [place] [address] PHOSPHORUSon 08-01-2023 Magnesium [Mass/Vol] 5.4 mg/dL High 2.5-5.0 [facility] Comment on above: Performed By: #### L [id number] ####[facility] ([facility])[address] [place] [address] TROPONIN Ion 08-01-2023 Troponin I.cardiac [Mass/Vol] 0.01 ng/mL Normal 0.00-0.[address] [facility] Comment on above: Performed By: #### L [id number] ####[facility] ([facility])[address] [place] [address] CBCon 07-31-2023 Erythrocyte distribution width (RBC) [Ratio] 13.0 % Normal 11.5-15.[address] [facility] Comment on above: Performed By: #### L [id number] ####[facility] ([facility])[address] [place] [address] ERYTHROCYTE MEAN CORPUSCULAR HEMOGLOBIN CONCENTRATION (G/DL) BY AUTOMATED 32.3 g/dL Normal 32.0-35.[address] [facility] Comment on above: Performed By: #### L [id number] ####[facility] ([facility])[address] [place] [address] Hematocrit (Bld) [Volume fraction] 28.2 % Low 36.0-48.[address] [facility] Comment on above: Performed By: #### L [id number] ####[facility] ([facility])[address] [place] [address] Hemoglobin (Bld) [Mass/Vol] 9.1 g/dL Low 12.0-15.[address] [facility] Comment on above: Performed By: #### L [id number] ####[facility] ([facility] [place] [address] MCH (RBC) [Entitic mass] 31.4 pg Normal 27.0-33.[address] [facility] Comment on above: Performed By: #### L [id number] ####[facility] ([facility])[address] [place] [address] MCV (RBC) [Entitic vol] 97.2 fL Normal 82.0-98.[address] [facility] Comment on above: Performed By: #### L [id number] ####[facility] ([facility])[address] [place] [address] PLATELETS (10*3/UL) IN BLOOD AUTOMATED COUNT 247 10*3/uL Normal 150-[address] [facility] Comment on above: Performed By: #### L [id number] ####[facility] ([facility])[address] [place] [address] RBC (Bld) [#/Vol] 2.90 10*6/uL Low 3.80-5.00 [facility] Comment on above: Performed By: #### L [id number] ####[facility] ([facility])[address] [place] [address] WBC (Bld) [#/Vol] 6.08 10*3/uL Normal 4.00-10.60 [facility] Comment on above: Performed By: #### L [id number] ####[facility] ([facility])[address] [place] [address] COMPREHENSIVE METABOLIC PANE Sameer 07-31-2023 Albumin [Mass/Vol] 3.2 g/dL Low 3.5-5.[address] [facility] Comment on above: Performed By: #### L [id number] #### [facility] ([facility] [address] [place] [address] ALP [Catalytic activity/Vol] 156 U/L High 34-[address] [facility] Comment on above: Performed By: #### L [id number] #### [facility] ([facility]) [address] [place] [address] ALT [Catalytic activity/Vol] 13 U/L Normal 7-[address] [facility] Comment on above: Performed By: #### L [id number] #### [facility] ([facility]ER) [address] [place] [address] Anion gap [Moles/Vol] 11 mmol/L Normal 7-20 [facility] Comment on above: Performed By: #### L [id number] #### [facility] ([facility] [address] [place] [address] AST [Catalytic activity/Vol] 16 U/L Normal 13-[address] [facility] Comment on above: Performed By: #### L [id number] #### [facility] ([facility] [address] [place] [address] Bilirubin [Mass/Vol] 0.2 mg/dL Low 0.3-1.0 [facility] Comment on above: Performed By: #### L [id number] #### [facility] ([facility] [address] [place] [address] Calcium [Mass/Vol] 8.7 mg/dL Normal 8.6-10.[address] [facility] Comment on above: Performed By: #### L [id number] #### [facility] ([facility] [address] [place] [address] Chloride [Moles/Vol] 101 mmol/L Normal 98-107 [facility] Comment on above: Performed By: #### L [id number] #### [facility] ([facility]) [address] [place] [address] CO2 [Moles/Vol] 29 mmol/L Normal 21-31 [facility] Comment on above: Performed By: #### L [id number] #### [facility] ([facility]) [address] [place] [address] Creatinine [Mass/Vol] 2.51 mg/dL High 0.60-1.20 [facility] Comment on above: Performed By: #### L [id number] #### [facility] ([facility]) [address] [place] [address] GLOMERULAR FILTRATION RATE ML/MIN/1.73 SQ M.PREDICTED 21.2 mL/min/1.73m*2 Low >60.[address] [facility] Comment on above: Result Comment: The [facility]???s estimated glomerular filtration rate (eGFR) will [...] group of individuals. Performed By: #### L [id number] #### [facility] ([facility]) [address] [place] [address] Glucose [Mass/Vol] 86 mg/dL Normal 70-[address] [facility] Comment on above: Performed By: #### L [id number] #### [facility] ([facility]) [address] [place] [address] Potassium [Moles/Vol] 3.9 mmol/L Normal 3.5-5.1 [facility] Comment on above: Performed By: #### L [id number] #### [facility] ([facility]) [address] [place] [address] Protein [Mass/Vol] 5.5 g/dL Low 6.0-8.[address] [facility] Comment on above: Performed By: #### L [id number] #### [facility] ([facility]) [address] [place] [address] Sodium [Moles/Vol] 137 mmol/L Normal 136-[address] [facility] Comment on above: Performed By: #### L [id number] #### [facility] ([facility]) [address] [place] [address] Urea nitrogen [Mass/Vol] 88 mg/dL High 7-[address] [facility] Comment on above: Performed By: #### L [id number] #### [facility] ([facility]) [address] [place] [address] UREA NITROGEN/CREATININE (MASS RATIO) IN SER/PLAS 35.[address] [facility] Comment on above: Performed By: #### L [id number] #### [facility] ([facility]) [address] [place] [address] HEPATITIS B CORE ANTIBODY, T OTALon 07-31-2023 HEPATITIS B VIRUS CORE AB (PRESENCE) IN SER/PLAS BY IMM Non-Reactive Normal Nonreactive [facility] Comment on above: Performed By: #### L [id number] ####[facility] ([facility])[address] [place] [address] HEPATITIS B SURFACE ANTIBODY QUANTon 07-31-2023 HEPATITIS B VIRUS SURFACE AB (MIU/ML) IN SERUM 1.84 mIU/mL Normal [facility] Comment on above: Result Comment: INTE RPRETATION: NONREACTIVE<8.00 mIU/mL INDETERMINATE8.00 - 12.00 mIU/mL REACTIVE>12 mIU/mL Performed By: #### L [id number] #### [facility] ([facility]) [address] [place] [address] HEPATITIS B SURFACE ANTIGENo n 07-31-2023 HEPATITIS B VIRUS SURFACE AG PRESENCE IN SERUM Non-Reactive Normal Nonreactive [facility] Comment on above: Performed By: #### L [id number] #### [facility] ([facility]) [address] [place] [address] HEPATITIS C ANTIBODYon 07-31 HEPATITIS C VIRUS AB PRESENCE IN SERUM Non-Reactive Normal Nonreactive [facility] Comment on above: Performed By: #### L [id number] #### [facility] ([facility]) [address] [place] [address] MAGNESIUMon 07-31-2023 Magnesium [Mass/Vol] 1.6 mg/dL Low 1.9-2.7 [facility] Comment on above: Performed By: #### L [id number] ####[facility] (BEAKER)[address] [place] [address] PROTEIN ELECTROPHORESIS, URI NE, 24 HOURon 07-31-2023 Protein (U) [Mass/Vol] 10.8 mg/dL Normal [facility] Comment on above: Result Comment: Ther e are no established reference values for random urine specimens. Performed By: #### L [id number] ####[facility] ([facility] [place] [address] UPEP INTERPRETATION Please see attached report. [facility] Comment on above: Performed By: #### L [id number] ####[facility] (BEAKER)[address] [place] [address] BASIC METABOLIC PANELon Anion gap [Moles/Vol] 12 mmol/L Normal 7-20 [facility] Comment on above: Performed By: #### L [id number] #### [facility] ([facility]ER) [address] [place] [address] Calcium [Mass/Vol] 8.4 mg/dL Low 8.6-10.[address] [facility] Comment on above: Performed By: #### L [id number] #### [facility] ([facility]ER) [address] [place] [address] Chloride [Moles/Vol] 103 mmol/L Normal 98-107 [facility] Comment on above: Performed By: #### L [id number] #### [facility] ([facility]) [address] [place] [address] CO2 [Moles/Vol] 25 mmol/L Normal 21-31 [facility] Comment on above: Performed By: #### L [id number] #### [facility] ([facility]AKER) [address] [place] [address] Creatinine [Mass/Vol] 2.95 mg/dL High 0.60-1.20 [facility] Comment on above: Performed By: #### L [id number] #### [facility] ([facility]) [address] [place] [address] GLOMERULAR FILTRATION RATE ML/MIN/1.73 SQ M.PREDICTED 17.5 mL/min/1.73m*2 Low >60.[address] [facility] Comment on above: Result Comment: The [facility]???s estimated glomerular filtration rate (eGFR) will [...] group of individuals. Performed By: #### L [id number] #### [facility] ([facility]) [address] [place] [address] Glucose [Mass/Vol] 84 mg/dL Normal 70-[address] [facility] Comment on above: Performed By: #### L [id number] #### [facility] ([facility]) [address] [place] [address] Potassium [Moles/Vol] 4.2 mmol/L Normal 3.5-5.1 [facility] Comment on above: Performed By: #### L [id number] #### [facility] ([facility]) [address] [place] [address] Sodium [Moles/Vol] 136 mmol/L Normal 136-[address] [facility] Comment on above: Performed By: #### L [id number] #### [facility] ([facility]) [address] [place] [address] Urea nitrogen [Mass/Vol] 96 mg/dL High 7-[address] [facility] Comment on above: Performed By: #### L [id number] #### [facility] ([facility]) [address] [place] [address] UREA NITROGEN/CREATININE (MASS RATIO) IN SER/PLAS 32.[address] [facility] Comment on above: Performed By: #### L [id number] #### [facility] ([facility]) [address] [place] [address] CBCon 07-30-2023 Erythrocyte distribution width (RBC) [Ratio] 13.2 % Normal 11.5-15.[address] [facility] Comment on above: Performed By: #### L [id number] #### [facility] ([facility]) [address] [place] [address] ERYTHROCYTE MEAN CORPUSCULAR HEMOGLOBIN CONCENTRATION (G/DL) BY AUTOMATED 32.0 g/dL Normal 32.0-35.[address] [facility] Comment on above: Performed By: #### L [id number] #### [facility] ([facility]) [address] [place] [address] Hematocrit (Bld) [Volume fraction] 28.1 % Low 36.0-48.[address] [facility] Comment on above: Performed By: #### L [id number] #### [facility] ([facility]) [address] [place] [address] Hemoglobin (Bld) [Mass/Vol] 9.0 g/dL Low 12.0-15.[address] [facility] Comment on above: Performed By: #### L [id number] #### [facility] ([facility]) [address] [place] [address] MCH (RBC) [Entitic mass] 31.3 pg Normal 27.0-33.[address] [facility] Comment on above: Performed By: #### L [id number] #### [facility] ([facility]) [address] [place] [address] MCV (RBC) [Entitic vol] 97.6 fL Normal 82.0-98.[address] [facility] Comment on above: Performed By: #### L [id number] #### [facility] ([facility]ER) [address] [place] [address] PLATELETS (10*3/UL) IN BLOOD AUTOMATED COUNT 245 10*3/uL Normal 150-[address] [facility] Comment on above: Performed By: #### L [id number] #### [facility] ([facility]) [address] [place] [address] RBC (Bld) [#/Vol] 2.88 10*6/uL Low 3.80-5.00 [facility] Comment on above: Performed By: #### L [id number] #### [facility] ([facility]) [address] [place] [address] WBC (Bld) [#/Vol] 5.95 10*3/uL Normal 4.00-10.60 [facility] Comment on above: Performed By: #### L [id number] #### [facility] ([facility]) [address] [place] [address] ALBUMINon 07-29-2023 Albumin [Mass/Vol] 3.3 g/dL Low 3.5-5.[address] [facility] Comment on above: Performed By: #### L [id number] ####[facility] ([facility])[address] [place] [address] Performed By: #### L [id number] #### [facility] ([facility]) [address] [place] [address] BASIC METABOLIC PANELon Anion gap [Moles/Vol] 14 mmol/L Normal 7-20 [facility] Comment on above: Performed By: #### L [id number] #### [facility] ([facility]) [address] [place] [address] Calcium [Mass/Vol] 8.0 mg/dL Low 8.6-10.[address] [facility] Comment on above: Performed By: #### L [id number] #### [facility] ([facility]) [address] [place] [address] Chloride [Moles/Vol] 104 mmol/L Normal 98-107 [facility] Comment on above: Performed By: #### L [id number] #### [facility] ([facility]) [address] [place] [address] CO2 [Moles/Vol] 21 mmol/L Normal 21-31 [facility] Comment on above: Performed By: #### L [id number] #### [facility] ([facility]) [address] [place] [address] Creatinine [Mass/Vol] 3.42 mg/dL High 0.60-1.20 [facility] Comment on above: Performed By: #### L [id number] #### [facility] ([facility]) [address] [place] [address] GLOMERULAR FILTRATION RATE ML/MIN/1.73 SQ M.PREDICTED 14.7 mL/min/1.73m*2 Low >60.[address] [facility] Comment on above: Result Comment: [facility]???s estimated glomerular filtration rate (eGFR) will [...] individuals. Performed By: #### L [id number] #### [facility] ([facility]) [address] [place] [address] Glucose [Mass/Vol] 75 mg/dL Normal 70-[address] [facility] Comment on above: Performed By: #### L [id number] #### [facility] ([facility]) [address] [place] [address] Potassium [Moles/Vol] 5.1 mmol/L Normal 3.5-5.1 [facility] Comment on above: Performed By: #### L [id number] #### [facility] ([facility]AKER) [address] [place] [address] Sodium [Moles/Vol] 134 mmol/L Low 136-[address] [facility] Comment on above: Performed By: #### L [id number] #### [facility] ([facility]ER) [address] [place] [address] Urea nitrogen [Mass/Vol] 104 mg/dL High 7-[address] [facility] Comment on above: Performed By: #### L [id number] #### [facility] [address] [place] [address] UREA NITROGEN/CREATININE (MASS RATIO) IN SER/PLAS 30.[address] [facility] Comment on above: Performed By: #### L [id number] #### [facility] ([facility] [address] [place] [address] Anion gap [Moles/Vol] 14 mmol/L Normal 7-20 [facility] Comment on above: Performed By: #### L [id number] #### [facility] ([facility]) [address] [place] [address] Calcium [Mass/Vol] 7.5 mg/dL Low 8.6-10.[address] [facility] Comment on above: Performed By: #### L [id number] #### [facility] ([facility]ER) [address] [place] [address] Chloride [Moles/Vol] 104 mmol/L Normal 98-107 [facility] Comment on above: Performed By: #### L [id number] #### [facility] ([facility]ER) [address] [place] [address] CO2 [Moles/Vol] 21 mmol/L Normal 21-31 [facility] Comment on above: Performed By: #### L [id number] #### [facility] ([facility]) [address] [place] [address] Creatinine [Mass/Vol] 3.52 mg/dL High 0.60-1.20 [facility] Comment on above: Performed By: #### L [id number] #### [facility] ([facility]) [address] [place] [address] GLOMERULAR FILTRATION RATE ML/MIN/1.73 SQ M.PREDICTED 14.2 mL/min/1.73m*2 Low >60.[address] [facility] Comment on above: Result Comment: [facility]???s estimated glomerular filtration rate (eGFR) will [...] individuals. Performed By: #### L [id number] #### [facility] ([facility]) [address] [place] [address] Glucose [Mass/Vol] 82 mg/dL Normal 70-[address] [facility] Comment on above: Performed By: #### L [id number] #### [facility] ([facility]) [address] [place] [address] Potassium [Moles/Vol] 4.9 mmol/L Normal 3.5-5.1 [facility] Comment on above: Performed By: #### L [id number] #### [facility] ([facility]) [address] [place] [address] Sodium [Moles/Vol] 134 mmol/L Low 136-[address] [facility] Comment on above: Performed By: #### L [id number] #### [facility] ([facility]) [address] [facility] [address] Urea nitrogen [Mass/Vol] 105 mg/dL High 7-[address] [facility] Comment on above: Performed By: #### L [id number] #### [facility] ([facility]) [address] [place] [address] UREA NITROGEN/CREATININE (MASS RATIO) IN SER/PLAS 29.[address] [facility] Comment on above: Performed By: #### L [id number] #### [facility] ([facility]) [address] [place] [address] CBC WITH AUTO DIFFERENTIALon 07-29-2023 Basophils (Bld) [#/Vol] 0.02 10*3/uL Normal 0.00-0.[address] [facility] Comment on above: Performed By: #### L [id number] #### [facility] ([facility]) [address] [place] [address] Basophils/100 WBC (Bld) 0.3 % Normal 0.0-1.[address] [facility] Comment on above: Performed By: #### L [id number] #### [facility] ([facility]) [address] [place] [address] Eosinophils (Bld) [#/Vol] 0.12 10*3/uL Normal 0.00-0.[address] [facility] Comment on above: Performed By: #### L [id number] #### [facility] ([facility]) [address] [place] [address] Eosinophils/100 WBC (Bld) 1.9 % Normal 0.0-6.[address] [facility] Comment on above: Performed By: #### L [id number] #### [facility] ([facility]) [address] [place] [address] Erythrocyte distribution width (RBC) [Ratio] 13.5 % Normal 11.5-15.[address] [facility] Comment on above: Performed By: #### L [id number] #### [facility] [address] [place] [address] ERYTHROCYTE MEAN CORPUSCULAR HEMOGLOBIN CONCENTRATION (G/DL) BY AUTOMATED 31.5 g/dL Low 32.0-35.[address] [facility] Comment on above: Performed By: #### L [id number] #### [facility] [address] [place] [address] Hematocrit (Bld) [Volume fraction] 27.6 % Low 36.0-48.[address] [facility] Comment on above: Performed By: #### L [id number] #### [facility] ([facility]) [address] [place] [address] Hemoglobin (Bld) [Mass/Vol] 8.7 g/dL Low 12.0-15.[address] [facility] Comment on above: Performed By: #### L [id number] #### [facility] [address] [place] [address] Immature granulocytes (Bld) [#/Vol] 0.06 10*3/uL Normal 0.00-0.[address] [facility] Comment on above: Performed By: #### L [id number] #### [facility] ([facility]) [address] [place] [address] Immature granulocytes/100 WBC (Bld) 1.0 % Normal 0.0-1.[address] [facility] Comment on above: Performed By: #### L [id number] #### [facility] ([facility]) [address] [place] [address] Lymphocytes (Bld) [#/Vol] 1.28 10*3/uL Normal 1.20-4.[address] [facility] Comment on above: Performed By: #### L [id number] #### [facility] ([facility]) [address] [place] [address] Lymphocytes/100 WBC (Bld) 20.4 % Normal 20.0-45.[address] [facility] Comment on above: Performed By: #### L [id number] #### [facility] ([facility]) [address] [place] [address] MCH (RBC) [Entitic mass] 31.3 pg Normal 27.0-33.[address] [facility] Comment on above: Performed By: #### L [id number] #### [facility] ([facility]) [address] [place] [address] MCV (RBC) [Entitic vol] 99.3 fL High 82.0-98.[address] [facility] Comment on above: Performed By: #### L [id number] #### [facility] ([facility]) [address] [place] [address] Monocytes (Bld) [#/Vol] 0.54 10*3/uL Normal 0.10-1.[address] [facility] Comment on above: Performed By: #### L [id number] #### [facility] ([facility]) [address] [place] [address] Monocytes/100 WBC (Bld) 8.6 % Normal 5.0-12.[address] [facility] Comment on above: Performed By: #### L [id number] #### [facility] ([facility]) [address] [place] [address] Neutrophils (Bld) [#/Vol] 4.24 10*3/uL Normal 1.60-7.60 [facility] [facility] Comment on above: Performed By: #### L [id number] #### [facility] ([facility]) [address] [place] [address] Neutrophils/100 WBC (Bld) 67.8 % Normal 40.0-72.[address] [facility] Comment on above: Performed By: #### L [id number] #### [facility] ([facility]) [address] [place] [address] NRBC (PER 100 WBCS) BY AUTOMATED COUNT 0.0 % Normal [address] [facility] Comment on above: Performed By: #### L [id number] #### [facility] ([facility]) [address] [place] [address] PLATELETS (10*3/UL) IN BLOOD AUTOMATED COUNT 268 10*3/uL Normal 150-[address] [facility] Comment on above: Performed By: #### L [id number] #### [facility] ([facility] [address] [place] [address] RBC (Bld) [#/Vol] 2.78 10*6/uL Low 3.80-5.00 [facility] Comment on above: Performed By: #### L [id number] #### [facility] ([facility]) [address] [place] [address] WBC (Bld) [#/Vol] 6.26 10*3/uL Normal 4.00-10.60 [facility] Comment on above: Performed By: #### L [id number] #### [facility] ([employer]) [address] [place] [address] CONSULTon 07-29-2023 CONSULT ----- ----- Attestation signed by Rinku Tan MD at 07/29/2023 8:52 PM I personally saw and examined the patient on the same date of service as resident, Dr. Villavicencio. I discussed the findings and therapeutic plan with the resident and agree with the documentation. Pt had tecent admission to local hospital in [facility] for Renetta and hypervolemia, her s.cr was >4 on 07/28/23, we discussed potential need to start CLAY HOISTER given hypervolemia and uremic symptoms (N/v, confusion [...] gastric bypass surgery who initially presented to [facility] with concerns for worsening lower extremity edema, after gaining 50 pounds within past week. Patient was evaluated by PCP who increased Bumex dose from 1 mg TID to 3 mg TID but patient had no improvement in symptoms. On presentation to [facility], patient's creatinine was 4.55 (baseline 1.8-2), phosphorus 11.2, potassium 5.7, magnesium 1.8, hemoglobin 9.2 and BUN 122. Patient was initiated on Bumex drip but developed hypotension and was changed to IV pushes. Patient was subsequently transferred to [facility] Upon assessment at [facility], patient has downtrend in Cr to [...] (L) 07/29 (more content not included)... Normal [facility] CONSULT ----- ----- Attestation signed by Seun Martinez MD at 07/29/2023 3:45 PM I personally saw and examined the patient on the same date of service as resident/fellow Dr Lowery. I discussed the findings and therapeutic plan with the resident/fellow Dr Lowery. I agree with the documentation, except for any edits/updates below. Teaching Physician's Revisions: Seun Martinez MD, MPH, [facility], [facility], [facility] Interventional Cardiology Pager Email: [email or web address] ----- Cardiology Consult Note Reason for Consult: Bilaterally worsening lower extremity edema with orthopnea, concerning for heart failure exacerbation. HPI: Mabel Moser is a 63 y.o. female with PMH of alpha-1 antitrypsin carrier, HFpEF, CKD 3A, HTN, GERD, hypothyroidism, CVA, seizures, DVT (on Eliquis at home), morbid obesity s/p gastric bypass surgery who initially presented to [facility] with concerns for bilateral worsening lower extremity edema. As per patient, she gained 50 pounds of weight within a week. She saw her PCP who increased her Bumex dose from 1 mg 3 times daily to 3 mg 3 times daily but despite that patient had no improvement in her pedal edema. On presentation to [facility], patient's creatinine was 4.55 (baseline 1.8-2), phosphorus 11.2, potassium 5.7, magnesium 1.8, hemoglobin 9.2 and BUN 122. She was initiated on Bumex drip but developed hypotension and hence it was changed to IV pushes. Her chest x-ray was negative and there was no DVT diagnosed on duplex ultrasound. She was then transferred to [facility]. At [facility], her creatinine did improved slightly to 3.64, hemoglobin 8.5, troponin 0.01, BNP 265. She was initiated on IV Lasix 80 mg 3 times daily. Patient tells me that she did have a TTE performed at [facility] 2 months back but there [...] in the past she was admitted to [facility] in 2019 with fluid overload and [...] Anxiety, Arthritis, Asthma, CHF (congestive heart failure) ([facility]), Coronary artery disease, Depression, Gastroenteritis, Heart valve disease, Hypertension, Kidney failure, Lumbar spondylolysis, and Stroke ([facility]). Surgical History She has a past [...] unknown: Yes (more content not included)... Normal [facility] CREATININE, URINE, RANDOMon 07-29-2023 Creatinine (U) [Mass/Vol] 17.0 mg/dL Low 26-[address] [facility] Comment on above: Performed By: #### L [id number] #### [facility] ([facility]) [address] [place] [address] HEMOGLOBIN A1Con 07-29-2023 Glucose [Mass/Vol] 82 mg/dL Normal [facility] Comment on above: Performed By: #### L [id number] ####[facility] ([facility])[address] [place] [address] HbA1c (Bld) [Mass fraction] 4.5 % Normal 4.0-6.[address] [facility] Comment on above: Performed By: #### L [id number] ####[facility] ([facility] [place] [address] HEPATIC FUNCTION PANELon ALP [Catalytic activity/Vol] 150 U/L High 34-[address] [facility] Comment on above: Performed By: #### L [id number] #### [facility] ([facility]) [address] [place] [address] ALT [Catalytic activity/Vol] 19 U/L Normal 7-[address] [facility] Comment on above: Performed By: #### L [id number] #### [facility] ([facility]) [address] [place] [address] AST [Catalytic activity/Vol] 24 U/L Normal 13-[address] [facility] Comment on above: Performed By: #### L [id number] #### [facility] ([facility]) [address] [place] [address] Bilirubin [Mass/Vol] 0.3 mg/dL Normal 0.3-1.0 [facility] Comment on above: Performed By: #### L [id number] #### [facility] ([facility]) [address] [place] [address] Magnesium [Mass/Vol] 0.1 mg/dL Normal 0-0.2 [facility] Comment on above: Performed By: #### L [id number] #### [facility] ([facility]) [address] [place] [address] Protein [Mass/Vol] 5.6 g/dL Low 6.0-8.[address] [facility] Comment on above: Performed By: #### L [id number] #### [facility] ([facility]) [address] [place] [address] LIPID PANELon 07-29-2023 CHOL/HDL 2.0 mg/dL Normal [facility] Comment on above: Performed By: #### L [id number] #### [facility] ([facility]) [address] [place] [address] Cholesterol [Mass/Vol] 155 mg/dL Normal 120-200 [facility] Comment on above: Performed By: #### L [id number] #### [facility] ([facility]) [address] [place] [address] Magnesium [Mass/Vol] 46 mg/dL Normal 40-149 [facility] Comment on above: Result Comment: TRIG LYCERIDE REFERENCE RANGE: 20 YEARS AND OLDER CARDIOVASCULAR RISK LESS THAN 150 mg/dL LOW RISK 150 TO 199 mg/dL BORDERLINE RISK 200 mg/dL AND GREATER HIGH RISK Performed By: #### L [id number] #### [facility] ([facility]) [address] [place] [address] Magnesium [Mass/Vol] 67 mg/dL Normal 0-160 [facility] Comment on above: Performed By: #### L [id number] #### [facility] ([facility]) [address] [place] [address] Magnesium [Mass/Vol] 79 mg/dL Normal 23-92 [facility] Comment on above: Performed By: #### L [id number] #### [facility] ([facility]) [address] [place] [address] NON HDL CHOL. (LDL+VLDL) [address] [facility] Comment on above: Performed By: #### L [id number] #### [facility] ([facility]) [address] [place] [address] TOTAL VLDL-C 9 mg/dL Normal 0-[address] [facility] Comment on above: Performed By: #### L [id number] #### [facility] ([facility]) [address] [place] [address] MAGNESIUMon 07-29-2023 Magnesium [Mass/Vol] 2.0 mg/dL Normal 1.9-2.7 [facility] Comment on above: Performed By: #### L [id number] #### [facility] ([facility]) [address] [place] [address] PROTIME-INRon 07-29-2023 INR IN PPP BY COAGULATION ASSAY 1.15 High 0.90-1.[address] [facility] Comment on above: Result Comment: ACCC [...] RANGE. CHEST 1995;108:[id number]. Performed By: #### L [id number] #### [facility] [employer]) [address] [place] [address] PROTHROMBIN TIME (PT) IN PPP BY COAGULATION ASSAY 14.8 Seconds Normal 12.3-14.[address] [facility] Comment on above: Performed By: #### L [id number] #### [facility] [employer]) [address] [place] [address] TSH3 REFLEX TO FT4on 024 THYROTROPIN (MIU/L) IN SER/PLAS BY DETECTION LIMIT <= 0.05 MIU/L 1.50 mIU/L Normal 0.34-5.[address] [facility] Comment on above: Performed By: #### L [id number] ####[facility] [employer])[address] [place] [address] B-TYPE NATRIURETIC PEPTIDEon 07-28-2023 Natriuretic peptide B (Bld) [Mass/Vol] 265 pg/mL High 0-[address] [facility] Comment on above: Performed By: #### L [id number] #### [facility] ([facility]) [address] [place] [address] BASIC METABOLIC PANELon Anion gap [Moles/Vol] 15 mmol/L Normal 7-20 [facility] Comment on above: Performed By: #### L [id number] ####[facility] ([facility])[address] [place] [address] Calcium [Mass/Vol] 7.3 mg/dL Low 8.6-10.[address] [facility] Comment on above: Performed By: #### L [id number] ####[facility] ([facility])[address] [place] [address] Chloride [Moles/Vol] 105 mmol/L Normal 98-107 [facility] Comment on above: Performed By: #### L [id number] ####[facility] ([facility])[address] [place] [address] CO2 [Moles/Vol] 20 mmol/L Low 21-31 [facility] Comment on above: Performed By: #### L [id number] ####[facility] ([facility])[address] [place] [address] Creatinine [Mass/Vol] 3.64 mg/dL High 0.60-1.20 [facility] Comment on above: Performed By: #### L [id number] ####[facility] ([facility])[address] [place] [address] GLOMERULAR FILTRATION RATE ML/MIN/1.73 SQ M.PREDICTED 13.6 mL/min/1.73m*2 Low >60.[address] [facility] Comment on above: Result Comment: The [facility]???s estimated glomerular filtration rate (eGFR) will [...] of individuals. Performed By: #### L [id number] ####[facility] ([facility])[address] [place] [address] Glucose [Mass/Vol] 80 mg/dL Normal 70-[address] [facility] Comment on above: Performed By: #### L [id number] ####[facility] ([facility])[address] [facility] [address] Potassium [Moles/Vol] 5.7 mmol/L High 3.5-5.1 [facility] Comment on above: Performed By: #### L [id number] ####[facility] ([facility])[address] [facility] [address] Sodium [Moles/Vol] 134 mmol/L Low 136-[address] [facility] Comment on above: Performed By: #### L [id number] ####[facility] ([facility])[address] [facility] [address] Urea nitrogen [Mass/Vol] 109 mg/dL High 7-[address] [facility] Comment on above: Performed By: #### L [id number] ####[facility] ([facility])[address] [place] [address] UREA NITROGEN/CREATININE (MASS RATIO) IN SER/PLAS 29.[address] [facility] Comment on above: Performed By: #### L [id number] ####[facility] ([facility])[address] [facility] [address] CBC WITH AUTO DIFFERENTIALon 07-28-2023 Basophils (Bld) [#/Vol] 0.02 10*3/uL Normal 0.00-0.[address] [facility] Comment on above: Performed By: #### L [id number] #### [facility] ([facility]) [address] [place] [address] Basophils/100 WBC (Bld) 0.3 % Normal 0.0-1.[address] [facility] Comment on above: Performed By: #### L [id number] #### [facility] ([facility]) [address] [place] [address] Eosinophils (Bld) [#/Vol] 0.07 10*3/uL Normal 0.00-0.[address] [facility] Comment on above: Performed By: #### L [id number] #### [facility] ([facility]) [address] [place] [address] Eosinophils/100 WBC (Bld) 1.1 % Normal 0.0-6.[address] [facility] Comment on above: Performed By: #### L [id number] #### [facility] ([facility]) [address] [place] [address] Erythrocyte distribution width (RBC) [Ratio] 13.5 % Normal 11.5-15.[address] [facility] Comment on above: Performed By: #### L [id number] #### [facility] ([facility]) [address] [place] [address] ERYTHROCYTE MEAN CORPUSCULAR HEMOGLOBIN CONCENTRATION (G/DL) BY AUTOMATED 31.0 g/dL Low 32.0-35.[address] [facility] Comment on above: Performed By: #### L [id number] #### [facility] ([facility]) [address] [place] [address] Hematocrit (Bld) [Volume fraction] 27.4 % Low 36.0-48.[address] [facility] Comment on above: Performed By: #### L [id number] #### [facility] ([facility] [address] [place] [address] Hemoglobin (Bld) [Mass/Vol] 8.5 g/dL Low 12.0-15.[address] [facility] Comment on above: Performed By: #### L [id number] #### [facility] ([facility]) [address] [place] [address] Immature granulocytes (Bld) [#/Vol] 0.05 10*3/uL Normal 0.00-0.[address] [facility] Comment on above: Performed By: #### L [id number] #### [facility] ([facility]) [address] [place] [address] Immature granulocytes/100 WBC (Bld) 0.8 % Normal 0.0-1.[address] [facility] Comment on above: Performed By: #### L [id number] #### [facility] ([facility]) [address] [place] [address] Lymphocytes (Bld) [#/Vol] 0.83 10*3/uL Low 1.20-4.[address] [facility] Comment on above: Performed By: #### L [id number] #### [facility] ([facility]) [address] [place] [address] Lymphocytes/100 WBC (Bld) 13.0 % Low 20.0-45.[address] [facility] Comment on above: Performed By: #### L [id number] #### [facility] ([facility]) [address] [place] [address] MCH (RBC) [Entitic mass] 30.7 pg Normal 27.0-33.[address] [facility] Comment on above: Performed By: #### L [id number] #### [facility] ([facility]) [address] [place] [address] MCV (RBC) [Entitic vol] 98.9 fL High 82.0-98.[address] [facility] Comment on above: Performed By: #### L [id number] #### [facility] ([facility]) [address] [place] [address] Monocytes (Bld) [#/Vol] 0.45 10*3/uL Normal 0.10-1.[address] [facility] Comment on above: Performed By: #### L [id number] #### [facility] ([facility]) [address] [place] [address] Monocytes/100 WBC (Bld) 7.0 % Normal 5.0-12.[address] [facility] Comment on above: Performed By: #### L [id number] #### [facility] ([facility]) [address] [place] [address] Neutrophils (Bld) [#/Vol] 4.97 10*3/uL Normal 1.60-7.[address] [facility] Comment on above: Performed By: #### L [id number] #### [facility] ([facility]) [address] [place] [address] Neutrophils/100 WBC (Bld) 77.8 % High 40.0-72.[address] [facility] Comment on above: Performed By: #### L [id number] #### [facility] ([facility]) [address] [place] [address] NRBC (PER 100 WBCS) BY AUTOMATED COUNT 0.0 % Normal [address] [facility] Comment on above: Performed By: #### L [id number] #### [facility] ([facility]) [address] [place] [address] PLATELETS (10*3/UL) IN BLOOD AUTOMATED COUNT 245 10*3/uL Normal 150-[address] [facility] Comment on above: Performed By: #### L [id number] #### [facility] ([facility]) [address] [place] [address] RBC (Bld) [#/Vol] 2.77 10*6/uL Low 3.80-5.00 [facility] Comment on above: Performed By: #### L [id number] #### [facility] ([facility]) [address] [place] [address] WBC (Bld) [#/Vol] 6.39 10*3/uL Normal 4.00-10.60 [facility] Comment on above: Performed By: #### L [id number] #### [facility] ([facility]) [address] [place] [address] FERRITINon 07-28-2023 FERRITIN (NG/ML) IN SER/PLAS 53.0 ng/mL Normal 11.0-307.[address] [facility] Comment on above: Performed By: #### L [id number] #### [facility] ([facility]) [address] [place] [address] FOLATEon 07-28-2023 FOLATE (NG/ML) IN SER/PLAS 8.99 ng/mL Normal 6.6-[address] [facility] Comment on above: Performed By: #### L [id number] ####[facility] ([facility])[address] [place] [address] IRON AND TIBCon 07-28-2023 IRON (UG/DL) IN SER/PLAS 53 ug/dL Normal 50-[address] [facility] Comment on above: Performed By: #### L [id number] #### [facility] ([facility]) [address] [place] [address] IRON BINDING CAPACITY (UG/DL) IN SER/PLAS 285 ug/dL Normal 250-[address] [facility] Comment on above: Performed By: #### L [id number] #### [facility] ([facility]) [address] [facility] [place] [address] IRON BINDING CAPACITY.UNSATURATED (UG/DL) IN SER/PLAS 232.0 ug/dL Normal 155.0-355.[address] [facility] Comment on above: Performed By: #### L [id number] #### [facility] ([facility]) [address] [place] [address] IRON SATURATION (%) IN SER/PLAS 19 % Low 20-[address] [facility] Comment on above: Performed By: #### L [id number] #### [facility] ([facility]) [address] [facility] [place] [address] MAGNESIUMon 07-28-2023 Magnesium [Mass/Vol] 1.6 mg/dL Low 1.9-2.7 [facility] Comment on above: Performed By: #### L [id number] #### [facility] ([facility]) [address] [place] [address] RETICULOCYTE PANELon 024 HEMOGLOBIN (PG) IN RETICULOCYTES 33.8 pg Normal 28.0-36.[address] [facility] Comment on above: Performed By: #### L [id number] ####[facility] ([facility])[address] [place] [address] IMMATURE RETICULOCYTE FRACTION (%) 8.5 % Normal 2-[address] [facility] Comment on above: Performed By: #### L [id number] ####[facility] ([facility])[address] [place] [address] RETICULOCYTES (10*6/UL) IN BLOOD 0.0535 10*6/uL Normal 0.0250-0.[address] [facility] Comment on above: Performed By: #### L [id number] ####[facility] ([facility])[address] [facility] [address] Reticulocytes/100 RBC (Bld) 1.96 % High 0.50-1.[address] [facility] Comment on above: Performed By: #### L [id number] ####[facility] ([facility])[address] [facility] [address] TROPONIN Ion 07-28-2023 Troponin I.cardiac [Mass/Vol] 0.01 ng/mL Normal 0.00-0.[address] [facility] Comment on above: Performed By: #### L [id number] #### [facility] ([facility]) [address] [place] [address] URINALYSIS MICROSCOPIC WITH REFLEX CULTUREon 07-28-2023 CASTS IN URINE Normal [facility] Comment on above: Performed By: #### L [id number] #### [facility] ([facility]) [address] [place] [address] CRYSTALS IN URINE Normal [facility] Comment on above: Performed By: #### L [id number] #### [facility] ([facility]) [address] [place] [address] MUCUS (#/HPF) IN URINE SEDIMENT Occasional Normal None Seen, Occasional, Few [facility] Comment on above: Performed By: #### L [id number] #### [facility] ([facility]) [address] [place] [address] OTHER MICROSCOPIC ELEMENTS Normal [facility] Comment on above: Performed By: #### L [id number] #### [facility] ([facility]) [address] [place] [address] RBC (#/HPF) IN URINE SEDIMENT None Seen Normal None Seen [facility] Comment on above: Performed By: #### L [id number] #### [facility] ([facility]) [address] [place] [address] SQUAMOUS EPITHELIAL CELLS (#/HPF) IN URINE SEDIMENT Few Abnormal None Seen, Occasional [facility] Comment on above: Performed By: #### L [id number] #### [facility] ([facility]) [address] [place] [address] WBC (LEUKOCYTE) (#/HPF) IN URINE SEDIMENT 0-2 Abnormal None Seen [facility] Comment on above: Performed By: #### L [id number] #### [facility] ([facility]) [address] [place] [address] URINALYSIS WITH REFLEX CULTU REon 07-28-2023 BILIRUBIN, TOTAL PRESENCE IN URINE Negative Normal Negative [facility] Comment on above: Performed By: #### L [id number] ####[facility] ([facility])[address] [place] [address] Clarity (U) Clear Normal Clear [facility] Comment on above: Performed By: #### L [id number] ####[facility] ([facility] [place] [address] Color (U) Straw Abnormal Yellow [facility] Comment on above: Performed By: #### L [id number] ####[facility] ([facility] [place] [address] Glucose (U) [Mass/Vol] Negative Normal [facility] on above: Performed By: #### L [id number] ####[facility] ([facility] [place] [address] HEMOGLOBIN PRESENCE IN URINE Small Abnormal Negative [facility] Comment on above: Performed By: #### L [id number] ####[facility] ([facility])[address] [place] [address] Ketones Ql (U) Negative Normal Negative [facility] Comment on above: Performed By: #### L [id number] ####[facility] ([facility])[address] [place] [address] LEUKOCYTE ESTERASE PRESENCE IN URINE BY TEST STRIP Negative Normal Negative [facility] Comment on above: Performed By: #### L [id number] ####[facility] ([facility])[address] [place] [address] NITRITE PRESENCE IN URINE Negative Normal Negative [facility] Comment on above: Performed By: #### L [id number] ####[facility] ([facility])[address] [place] [address] pH (U) 5.0 [pH] Normal 5.0-8.[address] [facility] Comment on above: Performed By: #### L [id number] ####[facility] ([facility])[address] [place] [address] Protein (U) [Mass/Vol] Negative Normal [facility] on above: Performed By: #### L [id number] ####[facility] ([facility])[address] [place] [address] Specific gravity (U) [Rel density] 1.011 Low 1.015-1.[address] [facility] Comment on above: Performed By: #### L [id number] ####[facility] ([facility])[address] [place] [address] VENOUS BLOOD GAS WITH IONIZE D CALCIUMon 07-28-2023 Base excess Calc (BldV) [Moles/Vol] -7.1000 mmol/L Normal [facility] Comment on above: Performed By: #### L [id number] #### [facility] ([facility]) [address] [place] [address] CALCIUM IONIZED (MMOL/L) IN BLOOD 1.03 mmol/L Low 1.15-1.[address] [facility] Comment on above: Performed By: #### L [id number] #### [facility] ([facility]) [address] [place] [address] CO2 (BldV) [Partial pressure] 41 mm[Hg] Normal 40-[address] [facility] Comment on above: Performed By: #### L [id number] #### [facility] ([facility]) [address] [place] [address] HCO3 (Bld) [Moles/Vol] 19.3 mmol/L Normal U [facility] Comment on above: Performed By: #### L [id number] #### [facility] ([facility]) [address] [place] [address] Oxygen (BldV) [Partial pressure] 42 mm[Hg] Normal 35-[address] [facility] Comment on above: Performed By: #### L [id number] #### [facility] ([facility]) [address] [place] [address] OXYGEN SATURATION (%) IN VENOUS BLOOD 70.5 % Normal 65.0-75.[address] [facility] Comment on above: Performed By: #### L [id number] #### [facility] ([facility] [address] [place] [address] PH OF VENOUS BLOOD 7.28 Low 7.31-7.[address] [facility] Comment on above: Performed By: #### L [id number] #### [facility] ([facility] [address] [facility] [place] [address] Office Visiton 07-13-2023 Follow-up visit [id number] Loren Moser 1960 F Date Provider Department Center 07/13/2023 [facility] Family History Family history unknown: Yes Level of Service:23419 MT OFFICE/OUTPATIENT ESTABLISHED LOW MDM 20 MIN Normal [facility] Absolute reticulocyte countO rdered By: Los Grissom on 07-03-2023 Reticulocytes (Bld) [#/Vol] 0.039 10*6/uL 0.024-0.084 [facility] Basic Metabolic Panelon Creatinine Clr Calc Pharmacy 25.88 [facility] Comment on above: Performed By: #### V [id number], MG, BMP, JOSE, FE and TIBC, RETIC #### [facility] [address] [place] [address] [place] GFR/1.73 sq M.predicted MDRD (S/P/Bld) [Vol rate/Area] 23.348 mL/min/{1.73_m2} Normal [facility] Comment on above: Performed By: #### V [id number], MG, BMP, JOSE, FE and TIBC, RETIC #### [facility] [address] [place] [address] [place] Calcium [Mass/volume] in Ser um or PlasmaOrdered By: Jim Randhawa on 07-03-2023 Calcium [Mass/Vol] 8.3 mg/dL Low 8.6-10.3 [facility] Comment on above: Performed By: #### V [id number], MG, BMP, JOSE, FE and TIBC, RETIC #### [facility] [address] [place] [address] [place] Carbon dioxide, total [Moles /volume] in Serum or PlasmaOrdered By: Jim Randhawa on 07-03-2023 CO2 [Moles/Vol] 20.4 mmol/L Low 21.0-31.0 [facility] Comment on above: Performed By: #### V [id number], MG, BMP, JOSE, FE and TIBC, RETIC #### [facility] [address] [place] [address] [place] Chloride [Moles/volume] in S andrea or PlasmaOrdered By: Jim Randhawa on 07-03-2023 Chloride [Moles/Vol] 106 mmol/L Normal 98-107 [facility] Comment on above: Performed By: #### V [id number], MG, BMP, JOSE, FE and TIBC, RETIC #### [facility] [address] [place] [address] [place] Creatinine [Mass/volume] in Serum or PlasmaOrdered By: Jim Randhawa on 07-03-2023 Creatinine [Mass/Vol] 2.32 mg/dL High 0.60-1.20 [facility] Comment on above: Performed By: #### V [id number], MG, BMP, JOSE, FE and TIBC, RETIC #### [facility] [address] echo transthoracicon [facility], [facility] echo transthoracic [facility] Main [place] [address] [place] [address] Echocardiogram Signed Patient: Mabel Moser MR#: [id number] : 1960 Acct:[id number] Age/Sex: 63 / F ADM Date: 06/29/23 Loc: Room: [address] [place] [address] Type: DIS IN Attending Dr: Jim Randhawa DO Ordering Provider: Jim Randhawa DO Date of Service: 07/02/2301/16/859 [facility] echo transthoracic: swelling Copies to: MD Jim [...] FS: 40.8 % Ao root area: 7.8 [id number] ap4: 8.4 cm TAPSE: 2.6 cm EDV(Teich): [...] Signed By: Benjie Leach MD 07/03/23 1445 [facility] Ferritin [Mass/volume] in Se rum or PlasmaOrdered By: Los Grissom on 07-03-2023 Ferritin [Mass/Vol] 71.9 ng/mL Normal 11.0-306.8 [facility] Comment on above: Performed By: #### V [id number], MG, BMP, JOSE, FE and TIBC, RETIC #### [facility] [address] Folate [Mass/volume] in Seru m or PlasmaOrdered By: Los Grissom on 07-03-2023 Folate [Mass/Vol] 11.1 ng/mL >5.9 [facility] Comment on above: Folate reference ran ge: >5.9 ng/mlThe WHO technical consultation on folate and vitamin [id number] has determined that folate concentrations lessthan 4 ng/ml are considered deficient. Glucose [Mass/volume] in Ser um or PlasmaOrdered By: Jim Randhawa on 07-03-2023 Glucose [Mass/Vol] 99 mg/dL Normal 70-100 [facility] Comment on above: ADA recommended refe rence rangeRandom Glucose Reference Range is dependent on time and content of last meal. Glucose of more than 200 mg/dL in a nonstressed, ambulatory subject supports the diagnosis of Diabetes Mellitus. Result Comment: [facility] Glucose Reference Range is dependent on time and content of last meal. Glucose of more than 200 mg/dL in a nonstressed, ambulatory subject supports the diagnosis of Diabetes Mellitus. ADA recommended reference range Performed By: #### V [id number], MG, BMP, JOSE, FE and TIBC, RETIC #### [facility] [address] [place] [address] Iron [Mass/volume] in Serum or PlasmaOrdered By: Los Grissom on 07-03-2023 Iron [Mass/Vol] 59 ug/dL Normal 50-212 [facility] Comment on above: Performed By: #### V [id number], MG, BMP, JOSE, FE and TIBC, RETIC #### [facility] [address] [place] [address] Iron and TIBC Profileon % Iron Saturation 22.8 % Normal 20-50 [facility] Comment on above: Performed By: #### V [id number], MG, BMP, JOSE, FE and TIBC, RETIC #### [facility] [address] [place] [address] Total Iron Binding Capacity 259 ug/dL Normal 255-450 [facility] Comment on above: Performed By: #### V [id number], MG, BMP, JOSE, FE and TIBC, RETIC #### [facility] [address] [place] [address] Iron binding capacity [Mass/ volume] in Serum or PlasmaOrdered By: Los Grissom on 07-03-2023 Iron binding capacity [Mass/Vol] 259 ug/dL 255-450 [facility] Iron saturation [Mass Fracti on] in Serum or PlasmaOrdered By: Los Grissom on 07-03-2023 Iron saturation [Mass fraction] 22.8 % 20-50 [facility] Magnesium [Mass/volume] in S andrea or PlasmaOrdered By: Jim Randhawa on 07-03-2023 Magnesium [Mass/Vol] 2.0 mg/dL Normal 1.9-2.7 [facility] Comment on above: Performed By: #### V [id number], MG, BMP, JOSE, FE and TIBC, RETIC #### [address] No Panel InformationOrdered By: Jim Randhawa on 07-03-2023 Estimated GFR (CKD-EPI) 23.348 mL/Min [facility] Pharmacy Creatinine Clearance (Chem 25.88 [facility] Potassium [Moles/volume] in Serum or PlasmaOrdered By: Jim Randhawa on 07-03-2023 Potassium [Moles/Vol] 3.9 mmol/L Normal 3.5-5.1 [facility] Comment on above: Performed By: #### V [id number], MG, BMP, JOSE, FE and TIBC, RETIC #### [address] Reticulocyte Counton 024 Reticulocyte Number 0.039 10*6/uL Normal 0.024-0.084 [facility] Comment on above: Result Comment: PERF ORMED BY: [place] [address] PATHOLOGIST CONTRACT WRITER TANNER GAVIN M.D. Performed By: #### V [id number], MG, BMP, JOSE, FE and TIBC, RETIC #### [place] [address] [place] Reticulocyte Percent 1.5 % Normal 0.5-1.5 [facility] Comment on above: Performed By: #### V [id number], MG, BMP, JOSE, FE and TIBC, RETIC #### [place] [address] [place] Reticulocytes/100 RBC Auto ( Bld)Ordered By: Los Grissom on 07-03-2023 Reticulocytes/100 RBC (Bld) 1.5 % 0.5-1.5 [facility] Serum or plasma anion gap de terminationOrdered By: Jim Randhawa on 07-03-2023 Anion gap [Moles/Vol] 11.5 mmol/L Normal 6.0-15.0 [facility] Comment on above: Performed By: #### V [id number], MG, BMP, JOSE, FE and TIBC, RETIC #### [facility] [address] Sodium [Moles/volume] in Ser um or PlasmaOrdered By: Jim Randhawa on 07-03-2023 Sodium [Moles/Vol] 134 mmol/L Low 136-145 [facility] Comment on above: Performed By: #### V [id number], MG, BMP, JOSE, FE and TIBC, RETIC #### [facility] [address] [place] [address] [place] Transferrin [Mass/volume] in Serum or PlasmaOrdered By: Los Grissom on 07-03-2023 Transferrin [Mass/Vol] 185 mg/dL Low 203-362 [facility] Comment on above: Performed By: #### V [id number], MG, BMP, JOSE, FE and TIBC, RETIC #### [facility] [address] [place] [address] [place] Urea nitrogen [Mass/volume] in Serum or PlasmaOrdered By: Jim Randhawa on 07-03-2023 Urea nitrogen [Mass/Vol] 95 mg/dL High 7-25 [facility] Comment on above: Performed By: #### V [id number], MG, BMP, JOSE, FE and TIBC, RETIC #### [facility] [address] [place] [address] [place] Vit. B12/Folate Profileon Folate 11.1 ng/mL Normal >5.9 [facility] Comment on above: Result Comment: Sandra te reference range: >5.9 ng/ml The WHO technical consultation on folate and vitamin b12 deficiencies has determined that folate concentrations less than 4 ng/ml are considered deficient. PERFORMED BY: [place] [address] PATHOLOGIST CONTRACT WRITER TANNER GAVIN M.D. Performed By: #### V [id number], MG, BMP, JOSE, FE and TIBC, RETIC #### [address] Vitamin B12 ser/plasOrdered By: Los Grissom on 07-03-2023 Cobalamin (Vitamin B12) [Mass/Vol] 3564 pg/mL High 180-914 [facility] Comment on above: Performed By: #### V [id number], MG, BMP, JOSE, FE and TIBC, RETIC #### [address] Basic Metabolic Panelon Anion gap [Moles/Vol] 11.0 mmol/L Normal 6.0-15.0 [facility] Comment on above: Performed By: #### V [id number], MG, BMP, JOSE, FE and TIBC, RETIC #### [address] Calcium [Mass/Vol] 8.4 mg/dL Low 8.6-10.3 [facility] Comment on above: Performed By: #### V [id number], MG, BMP, JOSE, FE and TIBC, RETIC #### [address] Chloride [Moles/Vol] 104 mmol/L Normal 98-107 [facility] Comment on above: Performed By: #### V [id number], MG, BMP, JOSE, FE and TIBC, RETIC #### [address] CO2 [Moles/Vol] 20.2 mmol/L Low 21.0-31.0 [facility] Comment on above: Performed By: #### V [id number], MG, BMP, JOSE, FE and TIBC, RETIC #### [facility] [address] Creatinine [Mass/Vol] 2.31 mg/dL High 0.60-1.20 [facility] Comment on above: Performed By: #### V [id number], MG, BMP, JOSE, FE and TIBC, RETIC #### [facility] [address] [place] [address] [place] Creatinine Clr Calc Pharmacy 26.22 [facility] Comment on above: Performed By: #### V [id number], MG, BMP, JOSE, FE and TIBC, RETIC #### [place] [address] [place] GFR/1.73 sq M.predicted MDRD (S/P/Bld) [Vol rate/Area] 23.469 mL/min/{1.73_m2} [facility] Comment on above: Performed By: #### V [id number], MG, BMP, JOSE, FE and TIBC, RETIC #### [facility] [address] Glucose [Mass/Vol] 89 mg/dL Normal 70-100 [facility] Comment on above: Result Comment: [facility] Glucose Reference Range is dependent on time and content of last meal. Glucose of more than 200 mg/dL in a nonstressed, ambulatory subject supports the diagnosis of Diabetes Mellitus. ADA recommended reference range Performed By: #### V [id number], MG, BMP, JOSE, FE and TIBC, RETIC #### [facility] [address] Potassium [Moles/Vol] 4.2 mmol/L Normal 3.5-5.1 [facility] Comment on above: Performed By: #### V [id number], MG, BMP, JOSE, FE and TIBC, RETIC #### [facility] [address] Sodium [Moles/Vol] 131 mmol/L Low 136-145 [facility] Comment on above: Performed By: #### V [id number], MG, BMP, JOSE, FE and TIBC, RETIC #### [facility] [address] Urea nitrogen [Mass/Vol] 100 mg/dL High 7-25 [facility] Comment on above: Performed By: #### V [id number], MG, BMP, JOSE, FE and TIBC, RETIC #### [address] Erythrocyte distribution wid th Auto (RBC) [Ratio]Ordered By: Jim Randhawa on 07-02-2023 Erythrocyte distribution width (RBC) [Ratio] 14.2 % 11.9-15.3 [facility] Hematocrit Auto (Bld) [Volum e fraction]Ordered By: Jim Randhawa on 07-02-2023 Hematocrit (Bld) [Volume fraction] 25.0 % 34.0-46.4 [facility] Hemoglobin [Mass/volume] in BloodOrdered By: Jim Randhawa on 07-02-2023 Hemoglobin (Bld) [Mass/Vol] 8.4 g/dL 11.8-15.4 [facility] Hemogram CBC Without Diffon 07-02-2023 Erythrocyte distribution width (RBC) [Ratio] 14.2 % Normal 11.9-15.3 [facility] Comment on above: Performed By: #### V [id number], MG, BMP, JOSE, FE and TIBC, RETIC #### [address] Hematocrit (Bld) [Volume fraction] 25.0 % Low 34.0-46.4 [facility] Comment on above: Performed By: #### V [id number], MG, BMP, JOSE, FE and TIBC, RETIC #### [address] Hemoglobin (Bld) [Mass/Vol] 8.4 g/dL Low 11.8-15.4 [facility] Comment on above: Performed By: #### V [id number], MG, BMP, JOSE, FE and TIBC, RETIC #### [address] MCH (RBC) [Entitic mass] 32.3 pg Normal 24.7-34.3 [facility] Comment on above: Performed By: #### V [id number], MG, BMP, JOSE, FE and TIBC, RETIC #### [address] MCV (RBC) [Entitic vol] 96.6 fL Normal 80-100 [facility] Comment on above: Performed By: #### V [id number], MG, BMP, JOSE, FE and TIBC, RETIC #### [address] Mean Corpuscular HGB Conc 33.4 g/dL Normal 32.0-35.0 [facility] Comment on above: Performed By: #### V [id number], MG, BMP, JOSE, FE and TIBC, RETIC #### [address] Platelet mean volume (Bld) [Entitic vol] 7.7 fL Normal 6.3-10.7 [facility] Comment on above: Result Comment: PERF ORMED BY: [place] [address] PATHOLOGIST CONTRACT WRITER TANNER GAVIN M.D. Performed By: #### V [id number], MG, BMP, JOSE, FE and TIBC, RETIC #### [address] Platelets (Bld) [#/Vol] 217 10*3/uL Normal 150-450 [facility] Comment on above: Performed By: #### V [id number], MG, BMP, JOSE, FE and TIBC, RETIC #### [address] RBC (Bld) [#/Vol] 2.59 10*6/uL Low 3.60-5.00 [facility] Comment on above: Performed By: #### V [id number], MG, BMP, JOSE, FE and TIBC, RETIC #### [facility] [address] WBC (Bld) [#/Vol] 6.1 10*3/uL Normal 3.8-11.6 [facility] Comment on above: Performed By: #### V [id number], MG, BMP, JOSE, FE and TIBC, RETIC #### [facility] [address] Leukocytes [#/volume] correc nicol for nucleated erythrocytes in Blood by Automated counOrdered By: Jim Randhawa on 07-02-2023 WBC corrected for nucl RBC Auto (Bld) [#/Vol] 6.1 10*3/uL 3.8-11.6 [facility] MCH Auto (RBC) [Entitic mass ]Ordered By: Jim Randhawa on 07-02-2023 MCH (RBC) [Entitic mass] 32.3 pg 24.7-34.3 [facility] MCHC Auto (RBC) [Mass/Vol]Or dered By: Jim Randhawa on 07-02-2023 MCHC (RBC) [Mass/Vol] 33.4 g/dL 32.0-35.0 [facility] MCV Auto (RBC) [Entitic vol] Ordered By: Jim Randhawa on 07-02-2023 MCV (RBC) [Entitic vol] 96.6 fL 80-100 [facility] Magnesiumon 07-02-2023 Magnesium [Mass/Vol] 2.1 mg/dL Normal 1.9-2.7 [facility] Comment on above: Result Comment: PERF ORMED BY: [place] [address] PATHOLOGIST CONTRACT WRITER TANNER GAVIN M.D. Performed By: #### V [id number], MG, BMP, JOSE, FE and TIBC, RETIC #### [address] Platelet mean volume Auto (B ld) [Entitic vol]Ordered By: Jim Randhawa on 07-02-2023 Platelet mean volume (Bld) [Entitic vol] 7.7 fL 6.3-10.7 [facility] Platelets Auto (Bld) [#/Vol] Ordered By: Jim Randhawa on 07-02-2023 Platelets (Bld) [#/Vol] 217 10*3/uL 150-450 [facility] RBC Auto (Bld) [#/Vol]Ordere d By: Jim Randhawa on 07-02-2023 RBC (Bld) [#/Vol] 2.59 10*6/uL 3.60-5.00 [facility] Basic Metabolic Panelon Anion gap [Moles/Vol] 11.9 mmol/L Normal 6.0-15.0 [facility] Comment on above: Order Comment: LINE DRAW Performed By: #### V [id number], MG, BMP, JOSE, FE and TIBC, RETIC #### [facility] [address] Calcium [Mass/Vol] 8.9 mg/dL Normal 8.6-10.3 [facility] Comment on above: Order Comment: LINE DRAW Performed By: #### V [id number], MG, BMP, JOSE, FE and TIBC, RETIC #### [facility] [address] Chloride [Moles/Vol] 108 mmol/L High 98-107 [facility] Comment on above: Order Comment: LINE DRAW Performed By: #### V [id number], MG, BMP, JOSE, FE and TIBC, RETIC #### [facility] [address] CO2 [Moles/Vol] 18.5 mmol/L Low 21.0-31.0 [facility] Comment on above: Order Comment: LINE DRAW Performed By: #### V [id number], MG, BMP, JOSE, FE and TIBC, RETIC #### [facility] [address] Creatinine [Mass/Vol] 2.63 mg/dL Significan t change up 0.60-1.20 [facility] Comment on above: Order Comment: LINE DRAW Performed By: #### V [id number], MG, BMP, JOSE, FE and TIBC, RETIC #### [facility] [address] [place] [address] [place] Creatinine Clr Calc Pharmacy 23.09 [facility] Comment on above: Order Comment: LINE DRAW Performed By: #### V [id number], MG, BMP, JOSE, FE and TIBC, RETIC #### [facility] [address] [place] [address] [place] GFR/1.73 sq M.predicted MDRD (S/P/Bld) [Vol rate/Area] 20.085 mL/min/{1.73_m2} [facility] Comment on above: Order Comment: LINE DRAW Performed By: #### V [id number], MG, BMP, JOSE, FE and TIBC, RETIC #### [address] Glucose [Mass/Vol] 128 mg/dL High 70-100 [facility] Comment on above: Order Comment: LINE DRAW Result Comment: [facility] Glucose Reference Range is dependent on time and content of last meal. Glucose of more than 200 mg/dL in a nonstressed, ambulatory subject supports the diagnosis of Diabetes Mellitus. ADA recommended reference range Performed By: #### V [id number], MG, BMP, JOSE, FE and TIBC, RETIC #### [address] Potassium [Moles/Vol] 4.4 mmol/L Normal 3.5-5.1 [facility] Comment on above: Order Comment: LINE DRAW Performed By: #### V [id number], MG, BMP, JOSE, FE and TIBC, RETIC #### [facility] [address] Sodium [Moles/Vol] 134 mmol/L Low 136-145 [facility] Comment on above: Order Comment: LINE DRAW Performed By: #### V [id number], MG, BMP, JOSE, FE and TIBC, RETIC #### [facility] [address] Urea nitrogen [Mass/Vol] 104 mg/dL High 7-25 [facility] Comment on above: Order Comment: LINE DRAW Performed By: #### V [id number], MG, BMP, JOSE, FE and TIBC, RETIC #### [address] Magnesiumon 07-01-2023 Magnesium [Mass/Vol] 2.3 mg/dL Normal 1.9-2.7 [facility] Comment on above: Order Comment: LINE DRAW Result Comment: PERF ORMED BY: [place] [address] PATHOLOGIST CONTRACT WRITER TANNER GAVIN M.D. Performed By: #### V [id number], MG, BMP, JOSE, FE and TIBC, RETIC #### [address] Basic Metabolic Panelon Anion gap [Moles/Vol] 14.6 mmol/L Normal 6.0-15.0 [facility] Comment on above: Performed By: #### V [id number], MG, BMP, JOSE, FE and TIBC, RETIC #### [address] Calcium [Mass/Vol] 8.6 mg/dL Normal 8.6-10.3 [facility] Comment on above: Performed By: #### V [id number], MG, BMP, JOSE, FE and TIBC, RETIC #### [address] Chloride [Moles/Vol] 109 mmol/L High 98-107 [facility] Comment on above: Performed By: #### V [id number], MG, BMP, JOSE, FE and TIBC, RETIC #### [address] CO2 [Moles/Vol] 15.0 mmol/L Low 21.0-31.0 [facility] Comment on above: Performed By: #### V [id number], MG, BMP, JOSE, FE and TIBC, RETIC #### [facility] [address] Creatinine [Mass/Vol] 3.16 mg/dL High 0.60-1.20 [facility] Comment on above: Performed By: #### V [id number], MG, BMP, JOSE, FE and TIBC, RETIC #### [facility] [address] [place] [address] [place] Creatinine Clr Calc Pharmacy 19.26 [facility] Comment on above: Performed By: #### V [id number], MG, BMP, JOSE, FE and TIBC, RETIC #### [address] GFR/1.73 sq M.predicted MDRD (S/P/Bld) [Vol rate/Area] 16.114 mL/min/{1.73_m2} [facility] Comment on above: Performed By: #### V [id number], MG, BMP, JOSE, FE and TIBC, RETIC #### [address] Glucose [Mass/Vol] 79 mg/dL Normal 70-100 [facility] Comment on above: Result Comment: [facility] Glucose Reference Range is dependent on time and content of last meal. Glucose of more than 200 mg/dL in a nonstressed, ambulatory subject supports the diagnosis of Diabetes Mellitus. ADA recommended reference range Performed By: #### V [id number], MG, BMP, JOSE, FE and TIBC, RETIC #### [address] Potassium [Moles/Vol] 4.6 mmol/L Normal 3.5-5.1 [facility] Comment on above: Performed By: #### V [id number], MG, BMP, JOSE, FE and TIBC, RETIC #### [address] Sodium [Moles/Vol] 134 mmol/L Low 136-145 [facility] Comment on above: Performed By: #### V [id number], MG, BMP, JOSE, FE and TIBC, RETIC #### [facility] [address] [id number] [facility] Urea nitrogen [Mass/Vol] 117 mg/dL High 7-25 [facility] Comment on above: Performed By: #### V [id number], MG, BMP, JOSE, FE and TIBC, RETIC #### [facility] [address] [id number] [facility] Magnesiumon 06-30-2023 Magnesium [Mass/Vol] 2.5 mg/dL Normal 1.9-2.7 [facility] Comment on above: Result Comment: PERF ORMED BY: [facility] [address] [place] [address] PATHOLOGIST CONTRACT WRITER TANNER GAVIN M.D. Performed By: #### V [id number], MG, BMP, JOSE, FE and TIBC, RETIC #### [facility] [address] [id number] [facility] 36on 04-10-2023 36 Patient states she n eeds to cancel her surgery due to her son being on the transplant list, states she would like to reschedule. [facility] Orders Onlyon 04-05-2023 Orders Only [id number] Loren Moser 1960 Date Provider Department Center 04/05/2023 [facility] [place] [facility] Family History Family history unknown: Yes Normal [facility] Office Visiton 02-22-2023 Follow-up visit [id number] Loren Mosera A 1960 Date Provider Department Center 02/22/2023 120-RHIANNON BERNARD C[facility] Family History Family history unknown: Yes Level of Service:84496 MT OFFICE/OUTPATIENT ESTABLISHED MOD MDM 30-39 MIN Normal [facility] Follow-Upon 02-16-2023 Follow-Up [id number] Loren Mosera A 1960 Date Provider Department Center 02/16/2023 [facility] Family History Family history unknown: Yes Level of Service:38763 MT OFFICE/OUTPATIENT ESTABLISHED LOW MDM 20-29 MIN Reason for Visit and Comments: Pain [136] Normal [facility] Consultation Noteon 02-10-20 Consultation Note [id number]#1.00CD:12 7 Normal [facility] 36on 02-08-2023 36 Called patient to in form her she needs the CT done before her follow up w/ alonzo. The appt has been cancelled and needs rescheduled. Normal [facility] Consultation Noteon 02-09-20 Consultation Note [id number]#1.00CD:12 7 [facility] RAD - MISCon 02-08-2023 RAD - MISC [id number]#1.00CD:12 7 [facility] CBC AUTO DIFFon 11-22-2022 BASO # 0.0 103/ul Normal 0.0-0.1 [facility] Comment on above: Performed By: #### C BC ####[facility] [address] [address]Dr. Airam Tripathi Basophils/100 WBC (Bld) 0.6 % Normal 0.2-2.0 [facility] Comment on above: Performed By: #### C BC ####[facility] [address] [address]Dr. Airam Tripathi EO # 0.1 103/ul Normal 0.0-0.7 [facility] Comment on above: Performed By: #### C BC ####[facility] Q[address]kblltxt[address] [address]Dr. Airam Tripathi Eosinophils/100 WBC (Bld) 1.7 % Normal 0.9-7.0 [facility] Comment on above: Performed By: #### C BC ####[facility] Iqrevpftkj[address] [address]Dr. Airam Tripathi Erythrocyte distribution width (RBC) [Ratio] 15.2 % Critically high 11.0-15.0 [facility] Comment on above: Performed By: #### C BC ####[facility] Ztctjrocfl[address] [address]Dr. Airam Tripathi Hematocrit (Bld) [Volume fraction] 31.6 % Critically low 36.0-48.0 [facility] Comment on above: Performed By: #### C BC ####[facility] [address]prumnor[address] [address]DrKianna Airam Tripathi Hemoglobin (Bld) [Mass/Vol] 9.9 g/dL Critically low 12.0-16.0 [facility] Comment on above: Performed By: #### C BC ####[facility] Nfqaysohqp[address] [place], [place] [address]Dr. Airam Deuce IG # 0.02 10e3/ul Normal 0.00-0.03 [facility] Comment on above: Performed By: #### C BC ####[facility] Rhysrbqatf[address] [place], [place] [address]DrKianna Tripathi IG % 0.4 % Normal 0.0-0.5 [facility] Comment on above: Performed By: #### C BC ####[facility] Lnrbexqgwl[address] [place], [place] [address]DrKianna Airam Deuce LYMPH # 0.8 103/ul Critically low 1.2-3.8 [facility] Comment on above: Performed By: #### C BC ####[facility] Bjbczwsdug28[address] [place], [place] [address]DrKianna Selenaneil Tripathi Lymphocytes/100 WBC (Bld) 16.9 % Critically low 20.5-60.0 [facility] Comment on above: Performed By: #### C BC ####[facility] Qdxxasplgr98[address] [place], [place] [address]DrKianna Selenaneil Tripathi MANUAL DIFF REQ NO Normal [facility] Comment on above: Performed By: #### C BC ####[facility] Knhiimanyb[address] [place], [place] [address]DrKianna Tripathi MCH (RBC) [Entitic mass] 28.4 pg Normal 26.7-34.0 [facility] Comment on above: Performed By: #### C BC ####[facility] [address] [id number]. Airam Tripathi MCHC (RBC) [Mass/Vol] 31.3 g/dL Normal 29.9-35.2 [facility] Comment on above: Performed By: #### C BC ####[facility] [address]vsem[address] [id number]. Airam Tripathi MCV (RBC) [Entitic vol] 90.8 fL Normal 81.0-99.0 [facility] Comment on above: Performed By: #### C BC ####[facility] Dotmgmyctd2317[address] [place], [place] [address]Dr. Airam Tripathi MONO # 0.4 103/ul Normal 0.3-0.8 [facility] Comment on above: Performed By: #### C BC ####[facility] Qtfllcurqb8[address] [place], [place] [address]Dr. Airam Tripathi Monocytes/100 WBC (Bld) 8.9 % Normal 1.7-12.0 [facility] Comment on above: Performed By: #### C BC ####[facility] Buprfttony[address] [place], [place] [address]Dr. Airam Tripathi NEUT # 3.4 103/ul Normal 1.4-6.5 [facility] Comment on above: Performed By: #### C BC ####[facility] Mztovhwrap[address] [place], [place] [address]DrKianna Tripathi Neutrophils/100 WBC (Bld) 71.5 % Normal 43.0-75.0 [facility] Comment on above: Performed By: #### C BC ####[facility] Totxvgmjyq18[address] [place], [place] [id number] Tripathi Platelet mean volume (Bld) [Entitic vol] 9.4 fL Critically low 9.5-13.5 [facility] Comment on above: Performed By: #### C BC ####[facility] Iaevkvunnv[address] [place], [place] [id number]. Airam Tripathi PLT 302 103/ul Normal 150-450 [facility] Comment on above: Performed By: #### C BC ####[facility] Vvgvdebvst[address] [address]Dr. Selenaneil Deuce RBC 3.48 106/ul Critically low 4.20-5.40 [facility] Comment on above: Performed By: #### C BC ####[facility] Fr[address]vfhwncp[address] [address]Dr. Airam Tripathi WBC 4.7 103/ul Normal 4.0-11.0 [facility] Comment on above: Performed By: #### C BC ####[facility] F[address]bnypwtz84[address] [address]Dr. Airam Tripathi PROF 14(COMP METB)on 023 Albumin [Mass/Vol] 3.4 g/dL Normal 3.4-5.0 [facility] Comment on above: Performed By: #### C MP ####[facility] Gbvgcrofms203[address] [place], [place] [address]Dr. Airam Tripathi Albumin/Globulin [Mass ratio] 1.0 {ratio} Normal [facility] Comment on above: Performed By: #### C MP ####[facility] Bijnxwrtyd0765[address] [place], [place] [address]Dr. Airam Tripathi ALP [Catalytic activity/Vol] 123 U/L Critically high 46-116 [facility] Comment on above: Performed By: #### C MP ####[facility] Qlpbxlckln05[address] [place], [place] [address]Dr. Airam Tripathi ALT [Catalytic activity/Vol] 24 U/L Normal 14-59 [facility] Comment on above: Performed By: #### C MP ####[facility] Vcjfpbnall[address] [address]Dr. Airam Tripathi Anion gap [Moles/Vol] 12.1 mmol/L Normal [facility] Comment on above: Performed By: #### C MP ####[facility] Bigrqjexfc64[address] [address]Dr. Airam Tripathi AST [Catalytic activity/Vol] 30 U/L Normal 15-37 [facility] Comment on above: Performed By: #### C MP ####[facility] W[address]wxsuuhfc9[address] [address]Dr. Airam Tripathi Bilirubin [Mass/Vol] 0.4 mg/dL Normal 0.2-1.0 [facility] Comment on above: Performed By: #### C MP ####[facility] Ielaznxkbl[address] [place], [place] [address]Dr. Airam Tripathi Calcium [Mass/Vol] 8.9 mg/dL Normal 8.5-10.1 [facility] Comment on above: Performed By: #### C MP ####[facility] Yybeerclkh067[address] [place], [place] [address]Dr. Airam Tripathi Chloride [Moles/Vol] 95 mmol/L Critically low 98-107 [facility] Comment on above: Performed By: #### C MP ####[facility] Xfsqnabvqp024[address] [place], [place] [address]Dr. Airam Tripathi CO2 [Moles/Vol] 28.7 mmol/L Normal 21.0-32.0 [facility] Comment on above: Performed By: #### C MP ####[facility] Qndtpczdas77[address] [place], [place] [address]Dr. Airam Tripathi Creatinine [Mass/Vol] 1.25 mg/dL Critically high 0.55-1.02 [facility] Comment on above: Performed By: #### C MP ####[facility] Swnswstutd89[address] [place], [place] [address]Dr. Airam Tripathi EGFR-AF CITIZEN [place] 53 mL/min/1.73m2 Critically low >=60 [facility] Comment on above: Performed By: #### C MP ####[facility] Fmcseyhxpv50[address] [place], [place] [address]Dr. Airam Tripathi EGFR-NON AF CITIZEN OF [place] 44 mL/min/1.73m2 Critically low >=60 [facility] Comment on above: Performed By: #### C MP ####[facility] Veldmeflfa9[address] [place], [place] [address]Dr. Airam Tripathi Globulin (S) [Mass/Vol] 3.5 g/dL Normal [facility] Comment on above: Performed By: #### C MP ####[facility] Wx[address]liwtt[address] [address]Dr. Airam Tripathi Glucose [Mass/Vol] 89 mg/dL Normal 74-106 [facility] Comment on above: Performed By: #### C MP ####[facility] J[address]ahuldwas[address] [address]Dr. Airam Tripathi Potassium [Moles/Vol] 4.8 mmol/L Normal 3.5-5.1 [facility] Comment on above: Performed By: #### C MP ####[facility] Ivbgtnhbvi47[address] [address]Dr. Airam Tripathi Protein [Mass/Vol] 6.9 g/dL Normal 6.4-8.2 [facility] Comment on above: Performed By: #### C MP ####[facility] Aouudqwrqz8[address] [place], [place] [address]Dr. Airam Tripathi Sodium [Moles/Vol] 131 mmol/L Critically low 136-145 [facility] Comment on above: Performed By: #### C MP ####[facility] Mrgumeetzo367[address] [place], [place] [address]Dr. Airam Tripathi Urea nitrogen [Mass/Vol] 37.0 mg/dL Critically high 7.0-18.0 [facility] Comment on above: Performed By: #### C MP ####[facility] Hqjlcjoszk039[address] [place], [place] [address]Dr. Airam Tripathi Urea nitrogen/Creatinine [Mass ratio] 29.6 mg/mg Normal [facility] Comment on above: Performed By: #### C MP ####[facility] Llykdtuwou75[address] [place], [place] [address]Dr. Airam Tripathi OSMOLALITYon 11-18-2022 Osmolality [Osmolality] 293 mosm/kg Normal 275-295 [facility] Comment on above: Performed By: #### O SMO ####[facility] Qcygpminnd5179[address] [place], [place] [address]Dr. Airam Tripathi BNPon 11-16-2022 Natriuretic peptide B (Bld) [Mass/Vol] 1142.0 pg/mL Critically high <=900.0 [facility] Comment on above: Performed By: #### B DONKEY ENGINE FIRER/FIREMAN ####[facility] Aryggiiibh05[address] [place], [place] [address]DrKianna Tripathi CBC AUTO DIFFon 11-16-2022 BASO # 0.0 103/ul Normal 0.0-0.1 [facility] Comment on above: Performed By: #### C BC ####[facility] Rbypinsmpv2866[address] [place], [place] [address]DrKianna Tripathi Basophils/100 WBC (Bld) 0.3 % Normal 0.2-2.0 [facility] Comment on above: Performed By: #### C BC ####[facility] Uwtobblokp5[address] [place], [place] [address]DrKianna Tripathi EO # 0.3 103/ul Normal 0.0-0.7 [facility] Comment on above: Performed By: #### C BC ####[facility] Djsmhpabnv839[address] [place], [place] [address]DrKianna Tripathi Eosinophils/100 WBC (Bld) 4.6 % Normal 0.9-7.0 [facility] Comment on above: Performed By: #### C BC ####[facility] Iqniqkpfzd5[address] [place], [place] [address]DrKianna Tripathi Erythrocyte distribution width (RBC) [Ratio] 16.1 % Critically high 11.0-15.0 [facility] Comment on above: Performed By: #### C BC ####[facility] Qljaemxiwg[address] [place], [place] [address]DrKianna Tripathi Hematocrit (Bld) [Volume fraction] 28.0 % Critically low 36.0-48.0 [facility] Comment on above: Performed By: #### C BC ####[facility] Ufwbqcggta18[address] [place], [place] [address]DrKianna Tripathi Hemoglobin (Bld) [Mass/Vol] 8.9 g/dL Critically low 12.0-16.0 [facility] Comment on above: Performed By: #### C BC ####[facility] Zihauhsynp05[address] [place], [place] [address]Dr. Airam Tripathi IG # 0.02 10e3/ul Normal 0.00-0.03 [facility] Comment on above: Performed By: #### C BC ####[facility] Czbdegncnq[address] [address]Dr. Airam Tripathi IG % 0.3 % Normal 0.0-0.5 [facility] Comment on above: Performed By: #### C BC ####[facility] Gzftybmscb14[address] [address]DrKianna Tripahti LYMPH # 1.5 103/ul Normal 1.2-3.8 [facility] Comment on above: Performed By: #### C BC ####[facility] Sypxngfevc[address] [address]DrKianna Tripathi Lymphocytes/100 WBC (Bld) 24.2 % Normal 20.5-60.0 [facility] Comment on above: Performed By: #### C BC ####[facility] Baarputivq[address] [place], [place] [address]DrKianna Tripathi MANUAL DIFF REQ NO Normal [facility] Comment on above: Performed By: #### C BC ####[facility] Muzffzwcth[address] [place], [place] [address]DrKianna Tripathi MCH (RBC) [Entitic mass] 29.3 pg Normal 26.7-34.0 [facility] Comment on above: Performed By: #### C BC ####[facility] Xorkhjoort45[address] [address]DrKianna Tripathi MCHC (RBC) [Mass/Vol] 31.8 g/dL Normal 29.9-35.2 [facility] Comment on above: Performed By: #### C BC ####[facility] Oolhdclltn97[address] [address]DrKianna Tripathi MCV (RBC) [Entitic vol] 92.1 fL Normal 81.0-99.0 [facility] Comment on above: Performed By: #### C BC ####[facility] Iqvijgfmyw[address] [place], [place] [address]DrKianna Tripathi MONO # 0.6 103/ul Normal 0.3-0.8 [facility] Comment on above: Performed By: #### C BC ####[facility] Nhdmvamqhb[address] [address]Dr. Airam Tripathi Monocytes/100 WBC (Bld) 10.0 % Normal 1.7-12.0 [facility] Comment on above: Performed By: #### C BC ####[facility] Etoyeozrdm[address] [address]Dr. Airam Tripathi NEUT # 3.7 103/ul Normal 1.4-6.5 [facility] Comment on above: Performed By: #### C BC ####[facility] Epmtxoyder45[address] [address]Dr. Airam Tripathi Neutrophils/100 WBC (Bld) 60.6 % Normal 43.0-75.0 [facility] Comment on above: Performed By: #### C BC ####[facility] Vusysmpwdk[address] [address]Dr. Airam Tripathi Platelet mean volume (Bld) [Entitic vol] 9.1 fL Critically low 9.5-13.5 [facility] Comment on above: Performed By: #### C BC ####[facility] Qdcwehmgvf5[address] [address]Dr. Airam Tripathi PLT 242 103/ul Normal 150-450 [facility] Comment on above: Performed By: #### C BC ####[facility] Svwisplgbl4[address] [address]Dr. Airam Tripathi RBC 3.04 106/ul Critically low 4.20-5.40 [facility] Comment on above: Performed By: #### C BC ####[facility] Gqhrnuidag60[address] [address]Dr. Airam Tripathi WBC 6.1 103/ul Normal 4.0-11.0 [facility] Comment on above: Performed By: #### C BC ####[facility] F[address]hvapgn[address] [id number]. Airam Tripathi CT STROKE HEAD WOon 11-17-[address] STROKE HEAD WO Normal [facility] PROF CHEM 8 (BAS METB)on Anion gap [Moles/Vol] 9.8 mmol/L Normal [facility] Comment on above: Performed By: #### B GERTRUDE, HSTROPN ####[facility] O[address]isnusxi[address] [address]Dr. Airam Tripathi Calcium [Mass/Vol] 8.4 mg/dL Critically low 8.5-10.1 [facility] Comment on above: Performed By: #### B GERTRUDE, HSTROPN ####[facility] Frylptzioi[address] [address]Dr. Airam Tripathi Chloride [Moles/Vol] 99 mmol/L Normal 98-107 [facility] Comment on above: Performed By: #### B GERTRUDE, HSTROPN ####[facility] Hrtodheqag[address] [address]Dr. Airam Tripathi CO2 [Moles/Vol] 28.3 mmol/L Normal 21.0-32.0 [facility] Comment on above: Performed By: #### B GERTRUDE, HSTROPN ####[facility] [address]zzeqnqex[address] [place], [place] [address]Dr. Airam Tripathi Creatinine [Mass/Vol] 1.40 mg/dL Critically high 0.55-1.02 [facility] Comment on above: Performed By: #### B GERTRUDE, HSTROPN ####[facility] R[address]wvpaidd[address] [address]Dr. Airam Tripathi EGFR-AF CITIZEN OF [place] 46 mL/min/1.73m2 Critically low >=60 [facility] Comment on above: Performed By: #### B GERTRUDE, HSTROPN ####[facility] Oxwnlmhowx[address] [place], [place] [address]Dr. Airam Tripathi EGFR-NON AF CITIZEN OF [place] 38 mL/min/1.73m2 Critically low >=60 [facility] Comment on above: Performed By: #### B MP, HSTROPN ####[facility] Aphgauxcqx[address] [address]Dr. Airam Tripathi Glucose [Mass/Vol] 88 mg/dL Normal 74-106 [facility] Comment on above: Performed By: #### B GERTRUDE HSTROPN ####[facility] Zkmkwhzmiw[address] [address]Dr. Airam Tripathi Potassium [Moles/Vol] 5.1 mmol/L Normal 3.5-5.1 [facility] Comment on above: Performed By: #### B GERTRUDE, HSTROPN ####[facility] Ofykvobxjs[address] [place] [address]Dr. Selenaneil Tripathi Sodium [Moles/Vol] 132 mmol/L Critically low 136-145 [facility] Comment on above: Performed By: #### B GERTRUDE, HSTROPN ####[facility] Uzsildwjxq7[address] [place] [address]Dr. Selenaneil Tripathi Urea nitrogen [Mass/Vol] 56.0 mg/dL Critically high 7.0-18.0 [facility] Comment on above: Performed By: #### Bob LOREDO HSTROPN ####[facility] Witjcddgdn[address] [address]Dr. Selenaneil Tripathi Urea nitrogen/Creatinine [Mass ratio] 40.0 mg/mg Normal [facility] Comment on above: Performed By: #### Bob LOREDO HSTROPN ####[facility] Clbqzfhdmb364[address] [place] [address]Dr. Airam Tripathi TROPONIN, HIGH SENSITIVITYon 11-16-2022 HSTROP 9.9 pg/mL Normal 4.0-51.3 [facility] Comment on above: Result Comment: CUT- OFF POINTS HAVE BEEN ESTABLISHED BASED ON THE FOURTH UNIVERSAL DEFINITIONS OF MYOCARDIALINFARCTION. THE UPPER REFERENCE LIMIT (URL) OF TROPONIN, DEFINED THE 99TH PERCENTILE OFcTnI DISTRIBUTION IN A REFERENCE POPULATION, HAS BEEN CONFIRMED THE DECISION THRESHOLDFOR AR DIAGNOSIS. Performed By: #### B GERTRUDE, HSTROPN ####[facility] V[address]xmlqppb[address] [place] [address]Dr. Selenaneil Deuce XR CHEST 1 Von 11-16-2022 XR CHEST 1 V Normal [facility] CBC AUTO DIFFon 11-11-2022 BASO # 0.0 103/ul Normal 0.0-0.1 [facility] Comment on above: Performed By: #### C BC ####[facility] Aysscjgwnr[address] [place] [address]Dr. Airam Tripathi Basophils/100 WBC (Bld) 0.4 % Normal 0.2-2.0 [facility] Comment on above: Performed By: #### C BC ####[facility] Urzievewgl[address] [place], [place] [address]Dr. Airam Tripathi EO # 0.4 103/ul Normal 0.0-0.7 [facility] Comment on above: Performed By: #### C BC ####[facility] Nvishqnuph66[address] [place], [place] [address]Dr. Airam Tripathi Eosinophils/100 WBC (Bld) 4.6 % Normal 0.9-7.0 [facility] Comment on above: Performed By: #### C BC ####[facility] Bemdwckigi7[address] [place], [place] [address]Dr. Airam Tripathi Erythrocyte distribution width (RBC) [Ratio] 15.8 % Critically high 11.0-15.0 [facility] Comment on above: Performed By: #### C BC ####[facility] Lhactiyser4[address] [place], [place] [address]Dr. Airam Tripathi Hematocrit (Bld) [Volume fraction] 30.3 % Critically low 36.0-48.0 [facility] Comment on above: Performed By: #### C BC ####[facility] Oojelnazfx6[address] [place], [place] [address]Dr. Airam Tripathi Hemoglobin (Bld) [Mass/Vol] 9.3 g/dL Critically low 12.0-16.0 [facility] Comment on above: Performed By: #### C BC ####[facility] Kdtpzbvhnm[address] [place], [place] [address]Dr. Airam Tripathi IG # 0.03 10e3/ul Normal 0.00-0.03 [facility] Comment on above: Performed By: #### C BC ####[facility] Cyraluvscn[address] [place], [place] [address]Dr. Airam Tripathi IG % 0.4 % Normal 0.0-0.5 [facility] Comment on above: Performed By: #### C BC ####[facility] Ryzdofpagc75[address] [place] [address]DrKianna Tripathi LYMPH # 2.0 103/ul Normal 1.2-3.8 [facility] Comment on above: Performed By: #### C BC ####[facility] Inhyjnaasx0[address] [place] [address]DrKianna Tripathi Lymphocytes/100 WBC (Bld) 24.5 % Normal 20.5-60.0 [facility] Comment on above: Performed By: #### C BC ####[facility] L[address]ikmbzwux[address] [place], [place] [address]DrKianna Tripathi MANUAL DIFF REQ NO Normal [facility] Comment on above: Performed By: #### C BC ####[facility] [address]zhguhcsdc[address] [place], [place] [address]DrKianna Tripathi MCH (RBC) [Entitic mass] 28.9 pg Normal 26.7-34.0 [facility] Comment on above: Performed By: #### C BC ####[facility] [address]kwahyvp[address] [place], [place] [address]DrKianna Tripathi MCHC (RBC) [Mass/Vol] 30.7 g/dL Normal 29.9-35.2 [facility] Comment on above: Performed By: #### C BC ####[facility] [address] [place], [place] [address]DrKianna Tripathi MCV (RBC) [Entitic vol] 94.1 fL Normal 81.0-99.0 [facility] Comment on above: Performed By: #### C BC ####[facility] Jukffrfemc[address] [place], [place] [address]DrKianna Tripathi MONO # 0.7 103/ul Normal 0.3-0.8 [facility] Comment on above: Performed By: #### C BC ####[facility] Zvhhizhymo[address] [place], [place] [address]DrKianna Tripathi Monocytes/100 WBC (Bld) 8.3 % Normal 1.7-12.0 [facility] Comment on above: Performed By: #### C BC ####[facility] Epwztvybvk350[address] [place] [address]Dr. Airam Tripathi NEUT # 5.0 103/ul Normal 1.4-6.5 [facility] Comment on above: Performed By: #### C BC ####[facility] Luaojgilaa6751 [place] [address]DrKianna Airam Tripathi Neutrophils/100 WBC (Bld) 61.8 % Normal 43.0-75.0 [facility] Comment on above: Performed By: #### C BC ####[facility] Fxegivhatb4395 [place] [address]DrKianna Airam Deuce Platelet mean volume (Bld) [Entitic vol] 9.4 fL Critically low 9.5-13.5 [facility] Comment on above: Performed By: #### C BC ####[facility] Fxokeopgwm4217[address] [place], [place] [address]Dr. Airam Deuce PLT 270 103/ul Normal 150-450 [facility] Comment on above: Performed By: #### C BC ####[facility] Rhhvjsqfkh255[address] [place], [place] [address]DrKianna Airam Deuce RBC 3.22 106/ul Critically low 4.20-5.40 [facility] Comment on above: Performed By: #### C BC ####[facility] Vgpwqpinkx69[address] [place], [place] [address]DrKianna Airam Deuce WBC 8.1 103/ul Normal 4.0-11.0 [facility] Comment on above: Performed By: #### C BC ####[facility] Bybprzgtnw[address] [place], [place] [address]DrKianna Tripathi PROF 14(COMP METB)on 023 Albumin [Mass/Vol] 3.2 g/dL Critically low 3.4-5.0 [facility] Comment on above: Performed By: #### C MP ####[facility] Xsicxljpjs703[address] [place], [place] [address]Dr. Airam Tripathi Albumin/Globulin [Mass ratio] 1.0 {ratio} Normal [facility] Comment on above: Performed By: #### C MP ####[facility] Iolfshcled69[address] [place] [address]Dr. Airam Deuce ALP [Catalytic activity/Vol] 108 U/L Normal 46-116 [facility] Comment on above: Performed By: #### C MP ####[facility] Rexbxlypbw2509[address] [place], [place] [address]Dr. Airam Tripathi ALT [Catalytic activity/Vol] 30 U/L Normal 14-59 [facility] Comment on above: Performed By: #### C MP ####[facility] Ggdlgklrdf4316[address] [place], [place] [address]Dr. Airam Tripathi Anion gap [Moles/Vol] 12.8 mmol/L Normal Th [facility] Comment on above: Performed By: #### C MP ####[facility] Tsarsscytn206[address] [place], [place] [address]Dr. Airam Tripathi AST [Catalytic activity/Vol] 33 U/L Normal 15-37 [facility] Comment on above: Performed By: #### C MP ####[facility] Laxiasicll7365[address] [place], [place] [address]Dr. Airam Tripathi Bilirubin [Mass/Vol] 0.2 mg/dL Normal 0.2-1.0 [facility] Comment on above: Performed By: #### C MP ####[facility] Tqdkzgkzkl5076[address] [place], [place] [address]Dr. Airam Tripathi Calcium [Mass/Vol] 8.3 mg/dL Critically low 8.5-10.1 [facility] Comment on above: Performed By: #### C MP ####[facility] Mxdxnotrlp0135[address] [place], [place] [address]Dr. Airam Tripathi Chloride [Moles/Vol] 99 mmol/L Normal 98-107 [facility] Comment on above: Performed By: #### C MP ####[facility] Jzluemfsci16[address] [place], [place] [address]Dr. Airam Tripathi CO2 [Moles/Vol] 27.6 mmol/L Normal 21.0-32.0 [facility] Comment on above: Performed By: #### C MP ####[facility] Ztlluvatym5782 [place] [address]Dr. Airam Deuce Creatinine [Mass/Vol] 2.01 mg/dL Critically high 0.55-1.02 [facility] Comment on above: Performed By: #### C MP ####[facility] Dibjdaddtc[address] [place], [place] [address]Dr. Airam Tripathi EGFR-AF CITIZEN OF [place] 31 mL/min/1.73m2 Critically low >=60 [facility] Comment on above: Performed By: #### C MP ####[facility] Aushnrslxg027[address] [place], [place] [address]Dr. Airam Tripathi EGFR-NON AF CITIZEN OF [place] 25 mL/min/1.73m2 Critically low >=60 [facility] Comment on above: Performed By: #### C MP ####[facility] Zshvajqspg274[address] [place], [place] [address]Dr. Airam Tripathi Globulin (S) [Mass/Vol] 3.2 g/dL Normal [facility] Comment on above: Performed By: #### C MP ####[facility] Tfknqwnqmo0380[address] [place], [place] [address]Dr. Airam Tripathi Glucose [Mass/Vol] 158 mg/dL Critically high 74-106 T [facility] Comment on above: Performed By: #### C MP ####[facility] Fpkvpjfzxk408[address] [place], [place] [address]Dr. Airam Tripathi Potassium [Moles/Vol] 5.4 mmol/L Critically high 3.5-5.1 [facility] Comment on above: Performed By: #### C MP ####[facility] Yslcmggvys1612[address] [place], [place] [address]Dr. Airam Tripathi Protein [Mass/Vol] 6.4 g/dL Normal 6.4-8.2 [facility] Comment on above: Performed By: #### C MP ####[facility] Kumxajpqyd4538[address] [place], [place] [address]Dr. Airam Tripathi Sodium [Moles/Vol] 134 mmol/L Critically low 136-145 Th [facility] Comment on above: Performed By: #### C MP ####[facility] Pttinmafjy5756 [place] [address]Dr. Airam Tripathi Urea nitrogen [Mass/Vol] 52.0 mg/dL Critically high 7.0-18.0 [facility] Comment on above: Performed By: #### C MP ####[facility] Zndobpjnuc5[address] [place], [place] [address]Dr. Airam Tripathi Urea nitrogen/Creatinine [Mass ratio] 25.9 mg/mg Normal [facility] Comment on above: Performed By: #### C MP ####[facility] Mcwvygusae696[address] [place], [place] [address]Dr. Airam Tripathi OSMOLALITYon 11-06-2022 Osmolality [Osmolality] 261 mosm/kg Critically low 275-295 [facility] Comment on above: Performed By: #### O SMO ####[facility] Xyqaiyirib15[address] [place], [place] [address]Dr. Airam Tripathi XR HIPS GUMARO 3_4V WO PELVISon 11-04-2022 XR HIPS GUMARO 3_4V WO PELVIS Normal [facility] XR KNEE LT 4V or >on 023 XR KNEE LT 4V or > Normal [facility] BNPon 11-03-2022 Natriuretic peptide B (Bld) [Mass/Vol] 1168.0 pg/mL Critically high <=900.0 [facility] Comment on above: Performed By: #### B DONKEY ENGINE FIRER/FIREMAN, BMP ####[facility] Jiglxsulbs983[address] [place], [place] [address]Dr. Airam Tripathi CBC AUTO DIFFon 11-03-2022 BASO # 0.0 103/ul Normal 0.0-0.1 [facility] Comment on above: Performed By: #### C BC ####[facility] Zkwlcyrdzf2637 [place] [address]Dr. Airam Tripathi Basophils/100 WBC (Bld) 0.3 % Normal 0.2-2.0 [facility] Comment on above: Performed By: #### C BC ####[facility] Khgzbevuem4764 [place] [phone]. Airam Tripathi EO # 0.2 103/ul Normal 0.0-0.7 [facility] Comment on above: Performed By: #### C BC ####[facility] Zveaadshvi4034 [place] [address]Dr. Airam Tripathi Eosinophils/100 WBC (Bld) 1.9 % Normal 0.9-7.0 [facility] Comment on above: Performed By: #### C BC ####[facility] Ewgxeirpty37[address] [place], [place] [address]Dr. Airam Tripathi Erythrocyte distribution width (RBC) [Ratio] 15.2 % Critically high 11.0-15.0 [facility] Comment on above: Performed By: #### C BC ####[facility] Grhecvkqmd[address] [place], [place] [address]Dr. Selenaneil Tripathi Hematocrit (Bld) [Volume fraction] 34.3 % Critically low 36.0-48.0 [facility] Comment on above: Performed By: #### C BC ####[facility] Uqfrophvzu2006[address] [place], [place] [address]Dr. Airam Tripathi Hemoglobin (Bld) [Mass/Vol] 11.0 g/dL Critically low 12.0-16.0 [facility] Comment on above: Performed By: #### C BC ####[facility] Xknmdckopu64[address] [place], [place] [address]Dr. Airam Tripathi IG # 0.06 10e3/ul Critically high 0.00-0.03 [facility] Comment on above: Performed By: #### C BC ####[facility] Daghnpxawm7942[address] [place], [place] [address]Dr. Selenaneil Tripathi IG % 0.5 % Normal 0.0-0.5 [facility] Comment on above: Performed By: #### C BC ####[facility] Kazlhfiepj11[address] [place], [place] [address]Dr. Airam Tripathi LYMPH # 2.3 103/ul Normal 1.2-3.8 [facility] Comment on above: Performed By: #### C BC ####[facility] Crzvvstccj8893 [place] [phone]. Airam Tripathi Lymphocytes/100 WBC (Bld) 20.4 % Critically low 20.5-60.0 [facility] Comment on above: Performed By: #### C BC ####[facility] Uudgubbbjj4581 [place] [phone]. Airam Tripathi MANUAL DIFF REQ NO Normal [facility] Comment on above: Performed By: #### C BC ####[facility] Uvfbsydamn2084 [place] [phone]. Airam Deuce MCH (RBC) [Entitic mass] 28.7 pg Normal 26.7-34.0 [facility] Comment on above: Performed By: #### C BC ####[facility] Wjmzwgrabu5274 [place] [address]Dr. Airam Tripathi MCHC (RBC) [Mass/Vol] 32.1 g/dL Normal 29.9-35.2 [facility] Comment on above: Performed By: #### C BC ####[facility] Ghunxxnrez9935 [place] [phone]. Airam Deuce MCV (RBC) [Entitic vol] 89.6 fL Normal 81.0-99.0 [facility] Comment on above: Performed By: #### C BC ####[facility] Nwtqpsitqy8271 [place] [phone]. Airam Deuce MONO # 0.9 103/ul Critically high 0.3-0.8 [facility] Comment on above: Performed By: #### C BC ####[facility] Vnxxbrsbed9613 [place] [phone]. Airam Deuce Monocytes/100 WBC (Bld) 8.3 % Normal 1.7-12.0 [facility] Comment on above: Performed By: #### C BC ####[facility] Aodsepypyo7937[address] [place], [place] [address]Dr. Airam Tripathi NEUT # 7.8 103/ul Critically high 1.4-6.5 [facility] Comment on above: Performed By: #### C BC ####[facility] Zabjijfqnj2761 [place] [phone]. Airam Tripathi Neutrophils/100 WBC (Bld) 68.6 % Normal 43.0-75.0 [facility] Comment on above: Performed By: #### C BC ####[facility] Zcjseeuxjd6150 [place] [phone]. Airam Tripathi Platelet mean volume (Bld) [Entitic vol] 8.9 fL Critically low 9.5-13.5 [facility] Comment on above: Performed By: #### C BC ####[facility] Dkgzlofvfb2869 [place] [phone]. Airam Tripathi PLT 323 103/ul Normal 150-450 [facility] Comment on above: Performed By: #### C BC ####[facility] Nvbhilcmfo119[address] [place], [place] [address]Dr. Airam Tripathi RBC 3.83 106/ul Critically low 4.20-5.40 [facility] Comment on above: Performed By: #### C BC ####[facility] Myjpdpdhkl4[address] [place], [place] [address]Dr. Airam Tripathi WBC 11.4 103/ul Critically high 4.0-11.0 [facility] Comment on above: Performed By: #### C BC ####[facility] Emyvzwxzyq067[address] [place], [place] [address]Dr. Airam Tripathi BASO # 0.0 103/ul Normal 0.0-0.1 [facility] Comment on above: Performed By: #### C BC ####[facility] Eolzsdrnag[address] [place], [place] [address]Dr. Airam Tripathi Basophils/100 WBC (Bld) 0.2 % Normal 0.2-2.0 [facility] Comment on above: Performed By: #### C BC ####[facility] Yuackoisfp709[address] [place], [place] [address]Dr. Airam Tripathi EO # 0.1 103/ul Normal 0.0-0.7 [facility] Comment on above: Performed By: #### C BC ####[facility] Wqydkkfpgw0871 [place] [address]Dr. Airam Tripathi Eosinophils/100 WBC (Bld) 0.7 % Critically low 0.9-7.0 [facility] Comment on above: Performed By: #### C BC ####[facility] Ftpnzawkkg6904[address] [place], [place] [address]Dr. Airam Tripathi Erythrocyte distribution width (RBC) [Ratio] 15.4 % Critically high 11.0-15.0 [facility] Comment on above: Performed By: #### C BC ####[facility] Vunqwvxxhq14[address] [place], [place] [address]Dr. Airam Tripathi Hematocrit (Bld) [Volume fraction] 33.6 % Critically low 36.0-48.0 [facility] Comment on above: Performed By: #### C BC ####[facility] Fzltafapze7[address] [place], [place] [address]Dr. Airam Tripathi Hemoglobin (Bld) [Mass/Vol] 10.9 g/dL Critically low 12.0-16.0 [facility] Comment on above: Performed By: #### C BC ####[facility] Jkrjbkdwbf[address] [place], [place] [address]Dr. Airam Tripatih IG # 0.04 10e3/ul Critically high 0.00-0.03 [facility] Comment on above: Performed By: #### C BC ####[facility] Gagevgbrvk08[address] [place], [place] [address]Dr. Airam Tripathi IG % 0.5 % Normal 0.0-0.5 [facility] Comment on above: Performed By: #### C BC ####[facility] Riyybdfdtz7238[address] [place], [place] [address]Dr. Airam Tripathi LYMPH # 1.1 103/ul Critically low 1.2-3.8 [facility] Comment on above: Performed By: #### C BC ####[facility] Zuchwanqnx526[address] [place], [place] [address]Dr. Airam Tripathi Lymphocytes/100 WBC (Bld) 13.3 % Critically low 20.5-60.0 [facility] Comment on above: Performed By: #### C BC ####[facility] Tzdswtbylv2633 [place] [phone]. Airam Tripathi MANUAL DIFF REQ NO Normal [facility] Comment on above: Performed By: #### C BC ####[facility] Tyovfhyasj3417 [place] [phone]. Airam Tripathi MCH (RBC) [Entitic mass] 29.1 pg Normal 26.7-34.0 [facility] Comment on above: Performed By: #### C BC ####[facility] Gzczgemddx3965 [place] [address]Dr. Airam Tripathi MCHC (RBC) [Mass/Vol] 32.4 g/dL Normal 29.9-35.2 [facility] Comment on above: Performed By: #### C BC ####[facility] Qmkndjbdyp3922[address] [place], [place] [address]Dr. Airam Tripathi MCV (RBC) [Entitic vol] 89.6 fL Normal 81.0-99.0 [facility] Comment on above: Performed By: #### C BC ####[facility] N[address]fdbjxhrc32[address] [place], [place] [address]Dr. Airam Tripathi MONO # 0.5 103/ul Normal 0.3-0.8 [facility] Comment on above: Performed By: #### C BC ####[facility] Vkztzzqibl[address] [place], [place] [address]Dr. Airam Deuce Monocytes/100 WBC (Bld) 6.4 % Normal 1.7-12.0 [facility] Comment on above: Performed By: #### C BC ####[facility] Nlmlyjoupz[address] [place], [place] [id number]. Airam Tripathi NEUT # 6.5 103/ul Normal 1.4-6.5 [facility] Comment on above: Performed By: #### C BC ####[facility] Quuprswmgg696[address] [place], [place] [address]Dr. Airam Deuce Neutrophils/100 WBC (Bld) 78.9 % Critically high 43.0-75.0 [facility] Comment on above: Performed By: #### C BC ####[facility] Nsyxqphpgf9025 [place] [phone]. Airam Tripathi Platelet mean volume (Bld) [Entitic vol] 9.4 fL Critically low 9.5-13.5 [facility] Comment on above: Performed By: #### C BC ####[facility] Bcyppiqefj1146 [place] [phone]. Airam Deuce PLT 314 103/ul Normal 150-450 [facility] Comment on above: Performed By: #### C BC ####[facility] Pnbtkssbow3931 [place] [phone]. Airam Deuce RBC 3.75 106/ul Critically low 4.20-5.40 [facility] Comment on above: Performed By: #### C BC ####[facility] Ogdnalfsag4104 [place] [address]Dr. Airam Tripathi WBC 8.3 103/ul Normal 4.0-11.0 [facility] Comment on above: Performed By: #### C BC ####[facility] Ggpegjripz39[address] [place] [address] Air[address] CT HEAD WO CONon 11-03-2022 CT HEAD WO CON Normal [facility] PROF 14(COMP METB)on 023 Albumin [Mass/Vol] 3.2 g/dL Critically low 3.4-5.0 Th [facility] Comment on above: Performed By: #### C MP ####[facility] Mtnynvpnza4945 [place] [address]Dr. Airam Tripathi Albumin/Globulin [Mass ratio] 0.9 {ratio} Normal [facility] Comment on above: Performed By: #### C MP ####[facility] Mgsuysjkrc8233 [place] [phone]. Airam Tripathi ALP [Catalytic activity/Vol] 109 U/L Normal 46-116 [facility] Comment on above: Performed By: #### C MP ####[facility] Mkigujgxqa9798 [place] [address]Dr. Airam Tripathi ALT [Catalytic activity/Vol] 25 U/L Normal 14-59 [facility] Comment on above: Performed By: #### C MP ####[facility] Amyrpmtqzu4086 [place] [phone]. Airam Tripathi Anion gap [Moles/Vol] 10.9 mmol/L Normal Th e [facility] Comment on above: Performed By: #### C MP ####[facility] Bplotmpiyh0464 [place] [phone]. Airam Tripathi AST [Catalytic activity/Vol] 24 U/L Normal 15-37 [facility] Comment on above: Performed By: #### C MP ####[facility] Wfnqklaejw9817 [place] [phone]. Airam Deuce Bilirubin [Mass/Vol] 0.3 mg/dL Normal 0.2-1.0 [facility] Comment on above: Performed By: #### C MP ####[facility] Latrvmwhhi[address] [place], [place] [address]Dr. Airam Deuce Calcium [Mass/Vol] 8.6 mg/dL Normal 8.5-10.1 [facility] Comment on above: Performed By: #### C MP ####[facility] Rsilnhyuwo62[address] [place], [place] [address]Dr. Airam Deuce Chloride [Moles/Vol] 95 mmol/L Critically low 98-107 [facility] Comment on above: Performed By: #### C MP ####[facility] Ffgvcfjprq74[address] [place], [place] [address]Dr. Airam Deuce CO2 [Moles/Vol] 27.8 mmol/L Normal 21.0-32.0 [facility] Comment on above: Performed By: #### C MP ####[facility] E[address]scjejhm[address] [place], [place] [id number]. Airam Deuce Creatinine [Mass/Vol] 1.07 mg/dL Critically high 0.55-1.02 [facility] Comment on above: Performed By: #### C MP ####[facility] [address]qzjrkaqnv9[address] [place], [place] [address]Dr. Selenaneil Deuce EGFR-AF CITIZEN OF [place] >60 Normal >=60 [facility] Comment on above: Performed By: #### C MP ####[facility] Qsdmbphobz1743 [place] [phone]. Airam Tripathi EGFR-NON AF CITIZEN OF [place] 52 mL/min/1.73m2 Critically low >=60 [facility] Comment on above: Performed By: #### C MP ####[facility] Tctetvotzb1191 [place] [phone]. Airam Tripathi Globulin (S) [Mass/Vol] 3.5 g/dL Normal [facility] Comment on above: Performed By: #### C MP ####[facility] Fnxesamtud3462 [place] [address]Dr. Airam Tripathi Glucose [Mass/Vol] 86 mg/dL Normal 74-106 [facility] Comment on above: Performed By: #### C MP ####[facility] Cgmqjigppc4453 [place] [address]Dr. Airam Tripathi Potassium [Moles/Vol] 4.7 mmol/L Normal 3.5-5.1 [facility] Comment on above: Performed By: #### C MP ####[facility] Sbjsqygiav2596 [place] [address]Dr. Airam Tripathi Protein [Mass/Vol] 6.7 g/dL Normal 6.4-8.2 [facility] Comment on above: Performed By: #### C MP ####[facility] Mrlxxncjyi1152 [place] [address]Dr. Airam Tripathi Sodium [Moles/Vol] 129 mmol/L Critically low 136-145 Th [facility] Comment on above: Performed By: #### C MP ####[facility] Xtobmffwor8654 [place] [address]Dr. Airam Tripathi Urea nitrogen [Mass/Vol] 19.0 mg/dL Critically high 7.0-18.0 [facility] Comment on above: Performed By: #### C MP ####[facility] Aqvoxqxiqi8337 [place] [address]Dr. Airam Tripathi Urea nitrogen/Creatinine [Mass ratio] 17.8 mg/mg Normal [facility] Comment on above: Performed By: #### C MP ####[facility] Clqrponfzu6136 [place] [address]Dr. Airam Tripathi PROF CHEM 8 (BAS METB)on Anion gap [Moles/Vol] 9.0 mmol/L Normal [facility] Comment on above: Performed By: #### B DONKEY ENGINE FIRER/FIREMAN, BMP ####[facility] Tpwzoiknyx020[address] [place], [place] [address]Dr. Airam Tripathi Calcium [Mass/Vol] 8.5 mg/dL Normal 8.5-10.1 [facility] Comment on above: Performed By: #### B DONKEY ENGINE FIRER/FIREMAN, BMP ####[facility] Amwzfoltig[address] [place], [place] [address]Dr. Airam Tripathi Chloride [Moles/Vol] 93 mmol/L Critically low 98-107 [facility] Comment on above: Performed By: #### B DONKEY ENGINE FIRER/FIREMAN, BMP ####[facility] Webpfpmgck668[address] [place], [place] [address]Dr. Airam Tripathi CO2 [Moles/Vol] 28.1 mmol/L Normal 21.0-32.0 [facility] Comment on above: Performed By: #### B DONKEY ENGINE FIRER/FIREMAN, BMP ####[facility] Cjqehoxemq[address] [place], [place] [address]Dr. Airam Tripathi Creatinine [Mass/Vol] 1.17 mg/dL Critically high 0.55-1.02 [facility] Comment on above: Performed By: #### B DONKEY ENGINE FIRER/FIREMAN, BMP ####[facility] Gulflnchmw[address] [place], [place] [address]Dr. Airam Tripathi EGFR-AF CITIZEN OF [place] 57 mL/min/1.73m2 Critically low >=60 [facility] Comment on above: Performed By: #### B DONKEY ENGINE FIRER/FIREMAN, BMP ####[facility] Rmezdhnkub75[address] [place], [place] [address]Dr. Airam Tripathi EGFR-NON AF CITIZEN OF [place] 47 mL/min/1.73m2 Critically low >=60 [facility] Comment on above: Performed By: #### B DONKEY ENGINE FIRER/FIREMAN, BMP ####[facility] Bcvqhfkjqz[address] [place], [place] [address]Dr. Airam Tripathi Glucose [Mass/Vol] 107 mg/dL Critically high 74-106 T he [facility] Comment on above: Performed By: #### B DONKEY ENGINE FIRER/FIREMAN, BMP ####[facility] Ibofqrgkjs7042 [place] [address]Dr. Airam Tripathi Potassium [Moles/Vol] 4.1 mmol/L Normal 3.5-5.1 [facility] Comment on above: Performed By: #### B DONKEY ENGINE FIRER/FIREMAN, BMP ####[facility] [address] [place] [address]Dr. Airam Tripathi Sodium [Moles/Vol] 126 mmol/L Critically low 136-145 Th e [facility] Comment on above: Performed By: #### B DONKEY ENGINE FIRER/FIREMAN, BMP ####[facility] [address] [place] [address]Dr. Airam Tripathi Urea nitrogen [Mass/Vol] 20.0 mg/dL Critically high 7.0-18.0 [facility] Comment on above: Performed By: #### B DONKEY ENGINE FIRER/FIREMAN, BMP ####[facility] [address] [place] [address]Dr. Airam Tripathi Urea nitrogen/Creatinine [Mass ratio] 17.1 mg/mg Normal [facility] Comment on above: Performed By: #### B DONKEY ENGINE FIRER/FIREMAN, BMP ####[facility] [id number] [place], [place] [address]Dr. Airam Tripathi XR CHEST 1 Von 11-03-2022 XR CHEST 1 V Normal [facility] Activated partial thrombopla stin time (aPTT) in platelet poor plasma by coagulation aOrdered By: Favian Helm on 10-28-2022 aPTT Coag (PPP) [Time] 31.7 s 25.1-36.5 [facility] Alanine aminotransferase [En zymatic activity/volume] in Serum or PlasmaOrdered By: Favian Helm on 10-28-2022 ALT [Catalytic activity/Vol] 14 U/L 7-52 [facility] Albumin [Mass/volume] in Ser um or Plasma by Bromocresol green (BCG) dye binding methoOrdered By: Favian Helm on 10-28-2022 Albumin BCG dye [Mass/Vol] 3.6 g/dL 3.5-5.7 [facility] Alkaline phosphatase [Enzyma tic activity/volume] in Serum or PlasmaOrdered By: Favian Helm on 10-28-2022 ALP [Catalytic activity/Vol] 84 U/L 34-104 [facility] Aspartate aminotransferase [ Enzymatic activity/volume] in Serum or PlasmaOrdered By: Favian Helm on 10-28-2022 AST [Catalytic activity/Vol] 21 U/L 13-39 [facility] B-Type Natriuretic Peptideon 10-28-2022 Natriuretic peptide B (Bld) [Mass/Vol] 551.0 pg/mL High 5-100 [facility] Comment on above: Result Comment: PERF ORMED BY: [place] [address] PATHOLOGIST CONTRACT WRITER TANNER GAVIN M.D. Performed By: #### V [id number], MG, BMP, JOSE, FE and TIBC, RETIC #### [address] Basophils Auto (Bld) [#/Vol] Ordered By: Favian Helm on 10-28-2022 Basophils (Bld) [#/Vol] 0.0 10*3/uL 0.0-0.2 [facility] Basophils/100 WBC Auto (Bld) Ordered By: Favian Helm on 10-28-2022 Basophils/100 WBC (Bld) 0.4 % . [facility] Bilirubin.total [Mass/volume ] in Serum or PlasmaOrdered By: Favian Helm on 10-28-2022 Bilirubin [Mass/Vol] 0.3 mg/dL 0.3-1.0 [facility] CT head/brain wo conon 10-28 CT head/brain wo con [facility] [place] [address] CT Scan Report Signed Patient: Mabel Moser MR#: [id number] : 1960 Acct:[id number] Age/Sex: 62 / F ADM Date: 10/28/22 Loc: ER Room: Type: [facility] ER Attending Dr: Copies to: [...] Baljinder Ball M.D.10/28/2022 7:46 PM Dictation Location: [place] [address] Transcribed By: [facility] 10/28/221945 Dictated By: Baljinder Ball DO 10/28/221934 Signed By: 10/28/221945 Normal [facility] Calcium [Mass/volume] in Ser um or PlasmaOrdered By: Favian Helm on 10-28-2022 Calcium [Mass/Vol] 8.2 mg/dL 8.6-10.3 [facility] Carbon dioxide, total [Moles /volume] in Serum or PlasmaOrdered By: Favian Helm on 10-28-2022 CO2 [Moles/Vol] 25.7 mmol/L 21.0-31.0 [facility] Chloride [Moles/volume] in S andrea or PlasmaOrdered By: Favian Helm on 10-28-2022 Chloride [Moles/Vol] 98 mmol/L 98-107 [facility] Complete Blood Count Auto Di ffon 10-28-2022 Basophils (Bld) [#/Vol] 0.0 10*3/uL Normal 0.0-0.2 [facility] Comment on above: Result Comment: PERF ORMED BY: [place] [address] PATHOLOGIST CONTRACT WRITER TANNER GAVIN M.D. Performed By: #### V [id number], MG, BMP, JOSE, FE and TIBC, RETIC #### [address] Basophils/100 WBC (Bld) 0.4 % Normal . [facility] Comment on above: Performed By: #### V [id number], MG, BMP, JOSE, FE and TIBC, RETIC #### [address] Eosinophils (Bld) [#/Vol] 0.1 10*3/uL Normal 0.0-0.45 [facility] Comment on above: Performed By: #### V [id number], MG, BMP, JOSE, FE and TIBC, RETIC #### [address] Eosinophils/100 WBC (Bld) 1.0 % Normal . [facility] Comment on above: Performed By: #### V [id number], MG, BMP, JOSE, FE and TIBC, RETIC #### [address] Erythrocyte distribution width (RBC) [Ratio] 16.5 % High 11.9-15.3 [facility] Comment on above: Performed By: #### V [id number], MG, BMP, JOSE, FE and TIBC, RETIC #### [address] Hematocrit (Bld) [Volume fraction] 29.9 % Low 34.0-46.4 [facility] Comment on above: Performed By: #### V [id number], MG, BMP, JOSE, FE and TIBC, RETIC #### [address] Hemoglobin (Bld) [Mass/Vol] 9.6 g/dL Low 11.8-15.4 [facility] Comment on above: Performed By: #### V [id number], MG, BMP, JOSE, FE and TIBC, RETIC #### [address] Lymphocytes (Bld) [#/Vol] 0.8 10*3/uL Low 1.00-4.8 [facility] Comment on above: Performed By: #### V [id number], MG, BMP, JOSE, FE and TIBC, RETIC #### [address] Lymphocytes/100 WBC (Bld) 12.8 % Normal . [facility] Comment on above: Performed By: #### V [id number], MG, BMP, JOSE, FE and TIBC, RETIC #### [address] MCH (RBC) [Entitic mass] 28.3 pg Normal 24.7-34.3 [facility] Comment on above: Performed By: #### V [id number], MG, BMP, JOSE, FE and TIBC, RETIC #### [address] MCV (RBC) [Entitic vol] 88.3 fL Normal 80-100 [facility] Comment on above: Performed By: #### V [id number], MG, BMP, JOSE, FE and TIBC, RETIC #### [address] Mean Corpuscular HGB Conc 32.0 g/dL Normal 32.0-35.0 [facility] Comment on above: Performed By: #### V [id number], MG, BMP, JOSE, FE and TIBC, RETIC #### [address] Monocytes (Bld) [#/Vol] 0.2 10*3/uL Normal 0.0-0.8 [facility] Comment on above: Performed By: #### V [id number], MG, BMP, JOSE, FE and TIBC, RETIC #### [address] [address] [place] Monocytes/100 WBC (Bld) 17.29 % Normal 0.00-20.00 [facility] Comment on above: Performed By: #### V [id number], MG, BMP, JOSE, FE and TIBC, RETIC #### [address] Monocytes/100 WBC (Bld) 2.5 % Normal . [facility] Comment on above: Performed By: #### V [id number], MG, BMP, JOSE, FE and TIBC, RETIC #### [address] Neutrophils (Bld) [#/Vol] 5.5 10*3/uL Normal 1.8-7.7 [facility] Comment on above: Performed By: #### V [id number], MG, BMP, JOSE, FE and TIBC, RETIC #### [address] Neutrophils/100 WBC (Bld) 83.3 % Normal . [facility] Comment on above: Performed By: #### V [id number], MG, BMP, JOSE, FE and TIBC, RETIC #### [address] NRBC% 0.0 /100{WBC} Normal 0-0.5 [facility] Comment on above: Performed By: #### V [id number], MG, BMP, JOSE, FE and TIBC, RETIC #### [address] Platelet mean volume (Bld) [Entitic vol] 7.3 fL Normal 6.3-10.7 [facility] Comment on above: Performed By: #### V [id number], MG, BMP, JOSE, FE and TIBC, RETIC #### [address] Platelets (Bld) [#/Vol] 260 10*3/uL Normal 150-450 [facility] Comment on above: Performed By: #### V [id number], MG, BMP, JOSE, FE and TIBC, RETIC #### [address] RBC (Bld) [#/Vol] 3.38 10*6/uL Low 3.60-5.00 [facility] Comment on above: Performed By: #### V [id number], MG, BMP, JOSE, FE and TIBC, RETIC #### [address] WBC (Bld) [#/Vol] 6.6 10*3/uL Normal 3.8-11.6 [facility] Comment on above: Performed By: #### V [id number], MG, BMP, JOSE, FE and TIBC, RETIC #### [address] Comprehensive Metabolic Pane sameer 10-28-2022 Albumin [Mass/Vol] 3.6 g/dL Normal 3.5-5.7 [facility] Comment on above: Performed By: #### V [id number], MG, BMP, JOSE, FE and TIBC, RETIC #### [address] Albumin/Globulin [Mass ratio] 1.6 {ratio} Normal [facility] Comment on above: Performed By: #### V [id number], MG, BMP, JOSE, FE and TIBC, RETIC #### [address] ALP [Catalytic activity/Vol] 84 U/L Normal 34-104 [facility] Comment on above: Performed By: #### V [id number], MG, BMP, JOSE, FE and TIBC, RETIC #### [address] ALT [Catalytic activity/Vol] 14 U/L Normal 7-52 [facility] Comment on above: Performed By: #### V [id number], MG, BMP, JOSE, FE and TIBC, RETIC #### [address] Anion gap [Moles/Vol] 10.0 mmol/L Normal 6.0-15.0 [facility] Comment on above: Performed By: #### V [id number], MG, BMP, JOSE, FE and TIBC, RETIC #### [address] AST [Catalytic activity/Vol] 21 U/L Normal 13-39 [facility] Comment on above: Performed By: #### V [id number], MG, BMP, OJSE, FE and TIBC, RETIC #### [facility] [address] [place] [address] Bilirubin [Mass/Vol] 0.3 mg/dL Normal 0.3-1.0 [facility] Comment on above: Performed By: #### V [id number], MG, BMP, JOSE, FE and TIBC, RETIC #### [facility] [address] [place] [address] Calcium [Mass/Vol] 8.2 mg/dL Low 8.6-10.3 [facility] Comment on above: Performed By: #### V [id number], MG, BMP, JOSE, FE and TIBC, RETIC #### [address] Chloride [Moles/Vol] 98 mmol/L Normal 98-107 [facility] Comment on above: Performed By: #### V [id number], MG, BMP, JOSE, FE and TIBC, RETIC #### [address] CO2 [Moles/Vol] 25.7 mmol/L Normal 21.0-31.0 [facility] Comment on above: Performed By: #### V [id number], MG, BMP, JOSE, FE and TIBC, RETIC #### [address] Creatinine [Mass/Vol] 1.23 mg/dL High 0.60-1.20 [facility] Comment on above: Performed By: #### V [id number], MG, BMP, JOSE, FE and TIBC, RETIC #### [facility] [address] Creatinine Clr Calc Pharmacy 48.79 [facility] Comment on above: Performed By: #### V [id number], MG, BMP, JOSE, FE and TIBC, RETIC #### [address] GFR/1.73 sq M.predicted MDRD (S/P/Bld) [Vol rate/Area] 50.309 mL/min/{1.73_m2} [facility] Comment on above: Performed By: #### V [id number], MG, BMP, JOSE, FE and TIBC, RETIC #### [address] Globulin (S) [Mass/Vol] 2.3 g/dL [facility] Comment on above: Performed By: #### V [id number], MG, BMP, JOSE, FE and TIBC, RETIC #### [address] Glucose [Mass/Vol] 98 mg/dL Normal 70-100 [facility] Comment on above: Result Comment: [facility] Glucose Reference Range is dependent on time and content of last meal. Glucose of more than 200 mg/dL in a nonstressed, ambulatory subject supports the diagnosis of Diabetes Mellitus. ADA recommended reference range Performed By: #### V [id number], MG, BMP, JOSE, FE and TIBC, RETIC #### [address] Potassium [Moles/Vol] 4.7 mmol/L Normal 3.5-5.1 [facility] Comment on above: Performed By: #### V [id number], MG, BMP, JOSE, FE and TIBC, RETIC #### [address] Protein [Mass/Vol] 5.9 g/dL Low 6.4-8.9 [facility] Comment on above: Performed By: #### V [id number], MG, BMP, JOSE, FE and TIBC, RETIC #### [facility] [address] Sodium [Moles/Vol] 129 mmol/L Low 136-145 [facility] Comment on above: Performed By: #### V [id number], MG, BMP, JOSE, FE and TIBC, RETIC #### [facility] [address] [place] [address] [place] Urea nitrogen [Mass/Vol] 36 mg/dL High 7-25 [facility] Comment on above: Performed By: #### V [id number], MG, BMP, JOSE, FE and TIBC, RETIC #### [facility] [address] Creatine Kinaseon 10-28-2022 CK [Catalytic activity/Vol] 45 U/L Normal [facility] Comment on above: Performed By: #### V [id number], MG, BMP, JOSE, FE and TIBC, RETIC #### [address] Creatine kinase [Enzymatic a ctivity/volume] in Serum or PlasmaOrdered By: Favian Helm on 10-28-2022 CK [Catalytic activity/Vol] 45 U/L [facility] Creatinine [Mass/volume] in Serum or PlasmaOrdered By: Favian Helm on 10-28-2022 Creatinine [Mass/Vol] 1.23 mg/dL 0.60-1.20 [facility] ECG 12 lead ECGon 10-28-2022 ECG 12 lead ECG [facility] [place] [address] [place] [address] Electrocardiograph Report Signed Patient: Mabel Moser MR#: [id number] : 1960 Acct:[id number] Age/Sex: 62 / F ADM Date: 10/28/22 Loc: ER Room: Type: [facility] ER Attending Dr: Ordering Provider: [...] normal variant Confirmed by Chris MAURO DO ([id number]) on 10/28/2022 8:40:44 PM Referred By: Electronically Signed By:Chris MAURO DO Transcribed By: MUS Signed By Chris Mauro DO 0 10/28/222039 Normal [facility] Eosinophils Auto (Bld) [#/Vo l]Ordered By: Favian Helm on 10-28-2022 Eosinophils (Bld) [#/Vol] 0.1 10*3/uL 0.0-0.45 [facility] Eosinophils/100 WBC Auto (Bl d)Ordered By: Favian Helm on 10-28-2022 Eosinophils/100 WBC (Bld) 1.0 % . [facility] Erythrocyte distribution wid th Auto (RBC) [Ratio]Ordered By: Favian Helm on 10-28-2022 Erythrocyte distribution width (RBC) [Ratio] 16.5 % 11.9-15.3 [facility] Globulin Calc (S) [Mass/Vol] Ordered By: Favian Helm on 10-28-2022 Globulin (S) [Mass/Vol] 2.3 g/dL [facility] Glucose [Mass/volume] in Ser um or PlasmaOrdered By: Favian Helm on 10-28-2022 Glucose [Mass/Vol] 98 mg/dL 70-100 [facility] Comment on above: ADA recommended refe rence rangeRandom Glucose Reference Range is dependent on time and content of last meal. Glucose of more than 200 mg/dL in a nonstressed, ambulatory subject supports the diagnosis of Diabetes Mellitus. Hematocrit Auto (Bld) [Volum e fraction]Ordered By: Favian Helm on 10-28-2022 Hematocrit (Bld) [Volume fraction] 29.9 % 34.0-46.4 [facility] Hemoglobin [Mass/volume] in BloodOrdered By: Favian Helm on 10-28-2022 Hemoglobin (Bld) [Mass/Vol] 9.6 g/dL 11.8-15.4 [facility] Laboratory - CoagulationOrde red By: Favian Helm on 10-28-2022 PT Coag (PPP) [Time] 11.0 s 9.0-12.9 [facility] Leukocytes [#/volume] correc nicol for nucleated erythrocytes in Blood by Automated counOrdered By: Favian Helm on 10-28-2022 WBC corrected for nucl RBC Auto (Bld) [#/Vol] 6.6 10*3/uL 3.8-11.6 [facility] Lymphocytes Auto (Bld) [#/Vo l]Ordered By: Favian Helm on 10-28-2022 Lymphocytes (Bld) [#/Vol] 0.8 10*3/uL 1.00-4.8 [facility] Lymphocytes/100 WBC Auto (Bl d)Ordered By: Favian Helm on 10-28-2022 Lymphocytes/100 WBC (Bld) 12.8 % . [facility] MCH Auto (RBC) [Entitic mass ]Ordered By: Favian Helm on 10-28-2022 MCH (RBC) [Entitic mass] 28.3 pg 24.7-34.3 [facility] MCHC Auto (RBC) [Mass/Vol]Or dered By: Favian Helm on 10-28-2022 MCHC (RBC) [Mass/Vol] 32.0 g/dL 32.0-35.0 [facility] MCV Auto (RBC) [Entitic vol] Ordered By: Favian Helm on 10-28-2022 MCV (RBC) [Entitic vol] 88.3 fL 80-100 [facility] Magnesiumon 10-28-2022 Magnesium [Mass/Vol] 1.9 mg/dL Normal 1.9-2.7 [facility] Comment on above: Result Comment: PERF ORMED BY: [facility] [address] [place] [address] PATHOLOGIST CONTRACT WRITER TANNER GAVIN M.D. Performed By: #### V [id number], MG, BMP, JOSE, FE and TIBC, RETIC #### [facility] [address] [place] [address] [facility] Magnesium [Mass/volume] in S andrea or PlasmaOrdered By: Favian Helm on 10-28-2022 Magnesium [Mass/Vol] 1.9 mg/dL 1.9-2.7 [facility] Monocyte distribution width [Entitic volume] in Blood by AutomatedOrdered By: Favian Helm on 10-28-2022 Monocyte distribution width Auto (Bld) [Entitic vol] 17.29 % 0.00-20.00 [facility] Monocytes Auto (Bld) [#/Vol] Ordered By: Favian Helm on 10-28-2022 Monocytes (Bld) [#/Vol] 0.2 10*3/uL 0.0-0.8 [facility] Monocytes/100 WBC Auto (Bld) Ordered By: Favian Helm on 10-28-2022 Monocytes/100 WBC (Bld) 2.5 % . [facility] Natriuretic peptide B [Mass/ Vol]Ordered By: Favian Helm on 10-28-2022 Natriuretic peptide B (Bld) [Mass/Vol] 551.0 pg/mL 5-100 [facility] Neutrophils Auto (Bld) [#/Vo l]Ordered By: Favian Helm on 10-28-2022 Neutrophils (Bld) [#/Vol] 5.5 10*3/uL 1.8-7.7 [facility] Neutrophils/100 WBC Auto (Bl d)Ordered By: Favian Helm on 10-28-2022 Neutrophils/100 WBC (Bld) 83.3 % . [facility] No Panel InformationOrdered By: Favian Helm on 10-28-2022 Estimated GFR (CKD-EPI) 50.309 mL/Min [facility] Creatinine Clearance (Chem 48.79 [facility] Nucleated erythrocytes [Pres ence] in Blood by Automated countOrdered By: Favian Helm on 10-28-2022 Nucleated RBC Auto Ql (Bld) 0.0 /100{WBC} 0-0.5 [facility] Partial Thromboplastin Timeo n 10-28-2022 aPTT Coag (Bld) [Time] 31.7 s Normal 25.1-36.5 [facility] Comment on above: Result Comment: PERF ORMED BY: [facility] [address] [place] [address] PATHOLOGIST CONTRACT WRITER TANNER GAVIN M.D. Performed By: #### V [id number], MG, BMP, JOSE, FE and TIBC, RETIC #### [facility] [address] Platelet mean volume Auto (B ld) [Entitic vol]Ordered By: Favian Helm on 10-28-2022 Platelet mean volume (Bld) [Entitic vol] 7.3 fL 6.3-10.7 [facility] Platelet poor plasma interna tional normalized ratio (INR) by coagulation assay (relatOrdered By: Favian Helm on 10-28-2022 INR Coag (PPP) [Relative time] 1.0 {INR} [facility] Comment on above: INR Therapeutic Rang [...] 10-28-2022 Platelets (Bld) [#/Vol] 260 10*3/uL 150-450 [facility] Potassium [Moles/volume] in Serum or PlasmaOrdered By: Favian Helm on 10-28-2022 Potassium [Moles/Vol] 4.7 mmol/L 3.5-5.1 [facility] Protein [Mass/volume] in Ser um or PlasmaOrdered By: Favian Helm on 10-28-2022 Protein [Mass/Vol] 5.9 g/dL 6.4-8.9 [facility] Prothrombin Time INRon 10-28 INR Coag (PPP) [Relative time] 1.0 {INR} Normal [facility] Comment on above: Result Comment: INR [...] 3 - 4.5 Performed By: #### V [id number], MG, BMP, JOSE, FE and TIBC, RETIC #### [address] PT Coag (PPP) [Time] 11.0 s Normal 9.0-12.9 [facility] Comment on above: Performed By: #### V [id number], MG, BMP, JOSE, FE and TIBC, RETIC #### [address] RBC Auto (Bld) [#/Vol]Ordere d By: Favian Helm on 10-28-2022 RBC (Bld) [#/Vol] 3.38 10*6/uL 3.60-5.00 [facility] Serum or plasma albumin/glob ulin mass ratioOrdered By: Favian Helm on 10-28-2022 Albumin/Globulin [Mass ratio] 1.6 {ratio} [facility] Serum or plasma anion gap de terminationOrdered By: Favian Helm on 10-28-2022 Anion gap [Moles/Vol] 10.0 mmol/L 6.0-15.0 [facility] Sodium [Moles/volume] in Ser um or PlasmaOrdered By: Favian Helm on 10-28-2022 Sodium [Moles/Vol] 129 mmol/L 136-145 [facility] Troponin I High Sensitivityo n 10-28-2022 Troponin I High Sensitivity 5.8 pg/mL Normal 0.0-15.0 [facility] Comment on above: Result Comment: PERF ORMED BY: [place] [address] PATHOLOGIST CONTRACT WRITER TANNER GAVIN M.D. Performed By: #### V [id number], MG, BMP, JOSE, FE and TIBC, RETIC #### [address] Troponin I.cardiac [Mass/vol ume] in Serum or Plasma by Detection limit <= 0.01 ng/Ordered By: Favian Helm on 10-28-2022 Troponin I.cardiac DL <= 0.01 ng/mL [Mass/Vol] 5.8 pg/mL 0.0-15.0 [facility] Urea nitrogen [Mass/volume] in Serum or PlasmaOrdered By: Favian Helm on 10-28-2022 Urea nitrogen [Mass/Vol] 36 mg/dL 7-25 [facility] WBC Auto (Bld) [#/Vol]Ordere d By: Favian Helm on 10-28-2022 WBC (Bld) [#/Vol] 6.6 10*3/uL 3.8-11.6 [facility] XR chest 2V*on 10-28-2022 XR chest 2V* [facility] Main [address] [address] XRay Report Signed Patient: Mabel Moser MR#: [id number] : 1960 Acct:[id number] Age/Sex: 62 / F ADM Date: 10/28/22 Loc: ER Room: Type: [facility] ER Attending Dr: Copies to: Favian Helm PA-C Ordering Provider: Favian Helm PA-C Date of Service: 10/28/22 XR/XR chest 2V*: Shortness of Breath/Dyspnea Plain film chest 2 view HISTORY: Fluid overload. Shortness of breath. Headache. COMPARISON: 08/31/2018 FINDINGS: SUPPORT DEVICES: None POSTSURGICAL CHANGES: Right Roedoi-c-Nnbr intact with tip overlying the distal SVC. HEART: Within normal limits PULMONARY RAI: Within normal limits MEDIASTINUM: Unremarkable LUNGS AND PLEURA: No acute lung process, pleural effusion or pneumothorax identified. BONY STRUCTURES: Intact ADDITIONAL FINDINGS None XR/XR chest 2V* IMPRESSION: No acute process. Impression dictated by: Baljinder Ball M.D.10/28/2022 7:50 PM Dictation Location: [place] [address] Transcribed By: [facility] 10/28/221949 Dictated By: Baljinder Ball DO 05/05/23 1946 Signed By: 10/28/22 1950 Normal [facility] BNPon 10-26-2022 Natriuretic peptide B (Bld) [Mass/Vol] 2657.0 pg/mL Critically high <=900.0 [facility] Comment on above: Performed By: #### C MP, BNP ####[facility] [address] [place] [address]Dr. Airam Tripathi CBC AUTO DIFFon 10-26-2022 BASO # 0.0 103/ul Normal 0.0-0.1 [facility] Comment on above: Performed By: #### C BC ####[facility] [address] [place], [place] [address]Dr. Airam Tripathi Basophils/100 WBC (Bld) 0.5 % Normal 0.2-2.0 [facility] Comment on above: Performed By: #### C BC ####[facility] [address] [place], [place] [address]Dr. Airam Tripathi EO # 0.3 103/ul Normal 0.0-0.7 [facility] Comment on above: Performed By: #### C BC ####[facility] [address] [place], [place] [address]Dr. Airam Tripathi Eosinophils/100 WBC (Bld) 4.8 % Normal 0.9-7.0 [facility] Comment on above: Performed By: #### C BC ####[facility] [address] [place], [place] [address]Dr. Airam Tripathi Erythrocyte distribution width (RBC) [Ratio] 15.5 % Critically high 11.0-15.0 [facility] Comment on above: Performed By: #### C BC ####[facility] [address] [place], [place] [address]Dr. Airam Tripathi Hematocrit (Bld) [Volume fraction] 27.7 % Critically low 36.0-48.0 [facility] Comment on above: Performed By: #### C BC ####[facility] [address] [place], [place] [address]Dr. Airam Tripathi Hemoglobin (Bld) [Mass/Vol] 8.8 g/dL Critically low 12.0-16.0 [facility] Comment on above: Performed By: #### C BC ####[facility] [address] [place] [address]DrKianna Tripathi IG # 0.03 10e3/ul Normal 0.00-0.03 [facility] Comment on above: Performed By: #### C BC ####[facility] Jauqklyjes[address] [place] [address]DrKianna Tripathi IG % 0.5 % Normal 0.0-0.5 [facility] Comment on above: Performed By: #### C BC ####[facility] Loaxonwy[address] [place], [place] [address]DrKianna Tripathi LYMPH # 1.6 103/ul Normal 1.2-3.8 [facility] Comment on above: Performed By: #### C BC ####[facility] Ntfxjzxqnv[address] [place], [place] [address]DrKianna Tripathi Lymphocytes/100 WBC (Bld) 25.5 % Normal 20.5-60.0 [facility] Comment on above: Performed By: #### C BC ####[facility] Utzrxtlzmz[address] [place], [place] [address]DrKianna Tripathi MANUAL DIFF REQ NO Normal [facility] Comment on above: Performed By: #### C BC ####[facility] Srxlklrgbm99[address] [place], [place] [address]Dr. Airam Tripathi MCH (RBC) [Entitic mass] 29.0 pg Normal 26.7-34.0 [facility] Comment on above: Performed By: #### C BC ####[facility] Nyjtztdhsi[address] [place], [place] [id number] Tripathi MCHC (RBC) [Mass/Vol] 31.8 g/dL Normal 29.9-35.2 [facility] Comment on above: Performed By: #### C BC ####[facility] Wqymfowyxg[address] [place] [phone] Tripathi MCV (RBC) [Entitic vol] 91.4 fL Normal 81.0-99.0 [facility] Comment on above: Performed By: #### C BC ####[facility] Iqhuyxbvww20[address] [place] [phone]. Airam Tripathi MONO # 0.5 103/ul Normal 0.3-0.8 [facility] Comment on above: Performed By: #### C BC ####[facility] Bvmnhdmkqm85[address] [place] [phone]. Airam Tripathi Monocytes/100 WBC (Bld) 7.5 % Normal 1.7-12.0 [facility] Comment on above: Performed By: #### C BC ####[facility] Wpdkrnyoey70[address] [place] [address]Dr. Airam Tripathi NEUT # 3.9 103/ul Normal 1.4-6.5 [facility] Comment on above: Performed By: #### C BC ####[facility] Pvjbqgaqnw7[address] [place], [place] [address]Dr. Airam Tripathi Neutrophils/100 WBC (Bld) 61.2 % Normal 43.0-75.0 [facility] Comment on above: Performed By: #### C BC ####[facility] Kcmalaqrxx9[address] [place] [address]Dr. Airam Tripathi Platelet mean volume (Bld) [Entitic vol] 9.4 fL Critically low 9.5-13.5 [facility] Comment on above: Performed By: #### C BC ####[facility] Tsxmaxxoey0[address] [place] [address]Dr. Airam Tripathi PLT 247 103/ul Normal 150-450 [facility] Comment on above: Performed By: #### C BC ####[facility] Ovfyknpind26[address] [place] [phone]. Airam Tripathi RBC 3.03 106/ul Critically low 4.20-5.40 [facility] Comment on above: Performed By: #### C BC ####[facility] Xbqqevgbdk7[address] [place] [phone]. Airam Tripathi WBC 6.4 103/ul Normal 4.0-11.0 [facility] Comment on above: Performed By: #### C BC ####[facility] Truwuthija44[address] [place] [address]Dr. Airam Tripathi PROF 14(COMP METB)on 023 Albumin [Mass/Vol] 2.5 g/dL Critically low 3.4-5.0 [facility] Comment on above: Performed By: #### C MP, BNP ####[facility] Nkyxpptkzs67[address] [place] [address]Dr. Airam Tripathi Albumin/Globulin [Mass ratio] 0.9 {ratio} Normal [facility] Comment on above: Performed By: #### C MP, BNP ####[facility] Lcryzgthxl6720 [place] [address]Dr. Airam Tripathi ALP [Catalytic activity/Vol] 108 U/L Normal 46-116 [facility] Comment on above: Performed By: #### C MP, BNP ####[facility] Ukhixqgmhq77[address] [place] [address]Dr. Airam Tripathi ALT [Catalytic activity/Vol] 20 U/L Normal 14-59 [facility] Comment on above: Performed By: #### C MP, BNP ####[facility] Strmtlovzn65[address] [place] [address]Dr. Airam Tripathi Anion gap [Moles/Vol] 10.4 mmol/L Normal [facility] Comment on above: Performed By: #### C MP, BNP ####[facility] Xshntusybq7652 [place] [address]Dr. Airam Tripathi AST [Catalytic activity/Vol] 20 U/L Normal 15-37 [facility] Comment on above: Performed By: #### C MP, BNP ####[facility] Gizvgkrgll9[address] [place] [address]Dr. Airam Tripathi Bilirubin [Mass/Vol] 0.2 mg/dL Normal 0.2-1.0 [facility] Comment on above: Performed By: #### C MP, BNP ####[facility] Uqljhuvqpl9020 [place] [address]Dr. Airam Tripathi Calcium [Mass/Vol] 8.0 mg/dL Critically low 8.5-10.1 Th e [facility] Comment on above: Performed By: #### C MP, BNP ####[facility] Noeijgymkb56[address] [place], [place] [address]Dr. Airam Tripathi Chloride [Moles/Vol] 100 mmol/L Normal 98-107 [facility] Comment on above: Performed By: #### C MP, BNP ####[facility] Xhxetuvtno65[address] [place], [place] [address]Dr. Airam Tripathi CO2 [Moles/Vol] 28.6 mmol/L Normal 21.0-32.0 [facility] Comment on above: Performed By: #### C MP, BNP ####[facility] Qxpdaogyeg28[address] [place], [place] [address]Dr. Airam Tripathi Creatinine [Mass/Vol] 1.66 mg/dL Critically high 0.55-1.02 [facility] Comment on above: Performed By: #### C MP, BNP ####[facility] Cwnoeioxva30[address] [place], [place] [address]Dr. Airam Tripathi EGFR-AF CITIZEN OF [place] 38 mL/min/1.73m2 Critically low >=60 [facility] Comment on above: Performed By: #### C MP, BNP ####[facility] Upsuhxgggx160[address] [place], [place] [address]Dr. Airam Tripathi EGFR-NON AF CITIZEN OF [place] 32 mL/min/1.73m2 Critically low >=60 [facility] Comment on above: Performed By: #### C MP, BNP ####[facility] Ipyjusljwz88[address] [place], [place] [address]Dr. Airam Tripathi Globulin (S) [Mass/Vol] 2.8 g/dL Normal [facility] Comment on above: Performed By: #### C MP, BNP ####[facility] Btfmnlrfsr7[address] [place], [place] [address]Dr. Airam Tripathi Glucose [Mass/Vol] 102 mg/dL Normal 74-106 [facility] Comment on above: Performed By: #### C MP, BNP ####[facility] Ygusxmrjnv598524 [address] [place], [place] [address]Dr. iAram Tripathi Potassium [Moles/Vol] 5.0 mmol/L Normal 3.5-5.1 [facility] Comment on above: Performed By: #### C MP, BNP ####[facility] Vmzsxquqvu1404[address] [place], [place] [address]Dr. Airam Tripathi Protein [Mass/Vol] 5.3 g/dL Critically low 6.4-8.2 Th [facility] Comment on above: Performed By: #### C MP, BNP ####[facility] Vhmewmqqhd4320[address] [place], [place] [address]Dr. Airam Tripathi Sodium [Moles/Vol] 134 mmol/L Critically low 136-145 Th [facility] Comment on above: Performed By: #### C MP, BNP ####[facility] Aofzxivuvy694[address] [place], [place] [address]Dr. Airam Tripathi Urea nitrogen [Mass/Vol] 45.0 mg/dL Critically high 7.0-18.0 [facility] Comment on above: Performed By: #### C MP, BNP ####[facility] Lzrxejsasy6087[address] [place], [place] [address]Dr. Airam Tripathi Urea nitrogen/Creatinine [Mass ratio] 27.1 mg/mg Normal [facility] Comment on above: Performed By: #### C MP, BNP ####[facility] Dobjbfthpw894[address] [place], [place] [address]Dr. Airam Tripathi BNPon 10-25-2022 Natriuretic peptide B (Bld) [Mass/Vol] 4569.0 pg/mL Critically high <=900.0 [facility] Comment on above: Performed By: #### C MP, BNP ####[facility] Mbtlmnjrpk04[address] [place], [place] [address]Dr. Airam Deuce CBC AUTO DIFFon 10-25-2022 BASO # 0.0 103/ul Normal 0.0-0.1 [facility] Comment on above: Performed By: #### C BC ####[facility] Fyvvonyyfx90[address] [place], [place] [address]Dr. Airam Deuce Basophils/100 WBC (Bld) 0.5 % Normal 0.2-2.0 [facility] Comment on above: Performed By: #### C BC ####[facility] Teabgmhguq[address] [place] [address]Dr. Airam Tripathi EO # 0.3 103/ul Normal 0.0-0.7 [facility] Comment on above: Performed By: #### C BC ####[facility] Skrpbmexvw11[address] [place] [address]Dr. Selenaneil Tripathi Eosinophils/100 WBC (Bld) 5.6 % Normal 0.9-7.0 [facility] Comment on above: Performed By: #### C BC ####[facility] Whqguxutdv49[address] [place], [place] [address]Dr. Selenaneil Tripathi Erythrocyte distribution width (RBC) [Ratio] 15.7 % Critically high 11.0-15.0 [facility] Comment on above: Performed By: #### C BC ####[facility] Wsjsbmaags029[address] [place], [place] [address]Dr. Airam Tripathi Hematocrit (Bld) [Volume fraction] 30.1 % Critically low 36.0-48.0 [facility] Comment on above: Performed By: #### C BC ####[facility] Dtiqdutvkc[address] [place], [place] [address]Dr. Airam Tripathi Hemoglobin (Bld) [Mass/Vol] 9.2 g/dL Critically low 12.0-16.0 [facility] Comment on above: Performed By: #### C BC ####[facility] Tzmxhmwvhq4560[address] [place], [place] [address]Dr. Selenaneil Tripathi IG # 0.03 10e3/ul Normal 0.00-0.03 [facility] Comment on above: Performed By: #### C BC ####[facility] Iffrqmafxp3899[address] [place], [place] [address]Dr. Airam Tripathi IG % 0.5 % Normal 0.0-0.5 [facility] Comment on above: Performed By: #### C BC ####[facility] Yddmlrxoqh4535[address] [place], [place] [address]DrKianna Tripathi LYMPH # 1.7 103/ul Normal 1.2-3.8 [facility] Comment on above: Performed By: #### C BC ####[facility] Hqwgmfyndq44[address] [place] [address]Dr. Airam Tripathi Lymphocytes/100 WBC (Bld) 28.9 % Normal 20.5-60.0 [facility] Comment on above: Performed By: #### C BC ####[facility] Gdgxkcexwn3854 [place] [address]Dr. Airam Tripathi MANUAL DIFF REQ NO Normal [facility] Comment on above: Performed By: #### C BC ####[facility] Ihyyutwwyt92[address] [place] [phone]. Airam Tripathi MCH (RBC) [Entitic mass] 28.4 pg Normal 26.7-34.0 [facility] Comment on above: Performed By: #### C BC ####[facility] Atxqbiwtyi775[address] [place], [place] [address]Dr. Airam Tripathi MCHC (RBC) [Mass/Vol] 30.6 g/dL Normal 29.9-35.2 [facility] Comment on above: Performed By: #### C BC ####[facility] Sqctxcrxgy501[address] [place], [place] [address]Dr. Airam Tripathi MCV (RBC) [Entitic vol] 92.9 fL Normal 81.0-99.0 [facility] Comment on above: Performed By: #### C BC ####[facility] Bksatsksft01[address] [place], [place] [address]Dr. Airam Tripathi MONO # 0.5 103/ul Normal 0.3-0.8 [facility] Comment on above: Performed By: #### C BC ####[facility] Aaqrgvcfwq10[address] [place], [place] [address]Dr. Airam Tripathi Monocytes/100 WBC (Bld) 8.5 % Normal 1.7-12.0 [facility] Comment on above: Performed By: #### C BC ####[facility] Fifqjqlfgk37[address] [place], [place] [id number] Tripathi NEUT # 3.2 103/ul Normal 1.4-6.5 [facility] Comment on above: Performed By: #### C BC ####[facility] Rzkjuxotbl4016 [place] [address]DrKianna Tripathi Neutrophils/100 WBC (Bld) 56.0 % Normal 43.0-75.0 [facility] Comment on above: Performed By: #### C BC ####[facility] Muksjbendi9166 [place] [address]DrKianna Tripathi Platelet mean volume (Bld) [Entitic vol] 9.4 fL Critically low 9.5-13.5 [facility] Comment on above: Performed By: #### C BC ####[facility] Scmcdilwml7720 [place] [address]DrKianna Tripathi PLT 272 103/ul Normal 150-450 [facility] Comment on above: Performed By: #### C BC ####[facility] Mhttollrrw9[address] [place], [place] [address]DrKianna Tripathi RBC 3.24 106/ul Critically low 4.20-5.40 [facility] Comment on above: Performed By: #### C BC ####[facility] Nmjqfvqqea718[address] [place], [place] [address]DrKianna Tripathi WBC 5.8 103/ul Normal 4.0-11.0 [facility] Comment on above: Performed By: #### C BC ####[facility] Vgwcipjzqx[address] [place], [place] [address]DrKianna Tripathi OSMOLALITYon 10-25-2022 Osmolality [Osmolality] 282 mosm/kg Normal 275-295 [facility] Comment on above: Performed By: #### O SMO ####[facility] Kwssfvlsvf38[address] [place], [place] [address]DrKianna Tripathi PROF 14(COMP METB)on 023 Albumin [Mass/Vol] 2.7 g/dL Critically low 3.4-5.0 Th [facility] Comment on above: Performed By: #### C MP, BNP ####[facility] Kizlsyrhrv20[address] [place], [place] [address]DrKianna Tripathi Albumin/Globulin [Mass ratio] 0.9 {ratio} Normal [facility] Comment on above: Performed By: #### C MP, BNP ####[facility] Zazbrjurkl8[address] [place] [address]Dr. Airam Tripathi ALP [Catalytic activity/Vol] 122 U/L Critically high 46-116 [facility] Comment on above: Performed By: #### C MP, BNP ####[facility] Eorjqjixco7494 [place] [address]Dr. Airam Tripathi ALT [Catalytic activity/Vol] 23 U/L Normal 14-59 [facility] Comment on above: Performed By: #### C MP, BNP ####[facility] Wbzzzomymy2660[address] [place], [place] [address]Dr. Airam Tripathi Anion gap [Moles/Vol] 10.5 mmol/L Normal [facility] Comment on above: Performed By: #### C MP, BNP ####[facility] Zxxegxrgzk5138[address] [place], [place] [address]Dr. Airam Tripathi AST [Catalytic activity/Vol] 22 U/L Normal 15-37 [facility] Comment on above: Performed By: #### C MP, BNP ####[facility] Psoifjbres7315[address] [place], [place] [address]Dr. Airam Tripathi Bilirubin [Mass/Vol] 0.2 mg/dL Normal 0.2-1.0 [facility] Comment on above: Performed By: #### C MP, BNP ####[facility] Qyesuqevyv4589[address] [place], [place] [address]Dr. Airam Tripathi Calcium [Mass/Vol] 8.3 mg/dL Critically low 8.5-10.1 [facility] Comment on above: Performed By: #### C MP, BNP ####[facility] Yssknmpsdx0513[address] [place], [place] [address]Dr. Airam Tripathi Chloride [Moles/Vol] 102 mmol/L Normal 98-107 [facility] Comment on above: Performed By: #### C MP, BNP ####[facility] Tjwvxcxzcl870[address] [place], [place] [address]Dr. Airam Tripathi CO2 [Moles/Vol] 29.7 mmol/L Normal 21.0-32.0 [facility] Comment on above: Performed By: #### C MP, BNP ####[facility] Gnbmiamscu2937[address] [place], [place] [address]Dr. Airam Tripathi Creatinine [Mass/Vol] 1.31 mg/dL Critically high 0.55-1.02 [facility] Comment on above: Performed By: #### C MP, BNP ####[facility] Jcyuyweeit4556[address] [place], [place] [address]Dr. Airam Tripathi EGFR-AF CITIZEN [place] 50 mL/min/1.73m2 Critically low >=60 [facility] Comment on above: Performed By: #### C MP, BNP ####[facility] Ugrgfrksgx4465[address] [place], [place] [address]Dr. Airam Tripathi EGFR-NON AF CITIZEN OF [place] 41 mL/min/1.73m2 Critically low >=60 [facility] Comment on above: Performed By: #### C MP, BNP ####[facility] Dttaqjyqau76[address] [place], [place] [address]Dr. Airam Tripathi Globulin (S) [Mass/Vol] 2.9 g/dL Normal [facility] Comment on above: Performed By: #### C MP, BNP ####[facility] Deqerxdufg648[address] [place], [place] [address]Dr. Airam Tripathi Glucose [Mass/Vol] 94 mg/dL Normal 74-106 [facility] Comment on above: Performed By: #### C MP, BNP ####[facility] Dzwhucytdg5354[address] [place], [place] [address]Dr. Airam Tripathi Potassium [Moles/Vol] 4.2 mmol/L Normal 3.5-5.1 [facility] Comment on above: Performed By: #### C MP, BNP ####[facility] Mwsbfgadtx2342[address] [place], [place] [address]Dr. Airam Tripathi Protein [Mass/Vol] 5.6 g/dL Critically low 6.4-8.2 [facility] Comment on above: Performed By: #### C MP, BNP ####[facility] Mtioykfkkt56[address] [place] [address]Dr. Airam Tripathi Sodium [Moles/Vol] 138 mmol/L Normal 136-145 [facility] Comment on above: Performed By: #### C MP, BNP ####[facility] Ccwebjxdkb7199[address] [place], [place] [address]Dr. Airam Tripathi Urea nitrogen [Mass/Vol] 33.0 mg/dL Critically high 7.0-18.0 [facility] Comment on above: Performed By: #### C MP, BNP ####[facility] Uofailsqfo5142[address] [place], [place] [address]Dr. Airam Deuce Urea nitrogen/Creatinine [Mass ratio] 25.2 mg/mg Normal [facility] Comment on above: Performed By: #### C MP, BNP ####[facility] Zabdemubav4839[address] [place], [place] [address]Dr. Airam Tripathi BNPon 10-24-2022 Natriuretic peptide B (Bld) [Mass/Vol] 3805.0 pg/mL Critically high <=900.0 [facility] Comment on above: Performed By: #### H STROPN, BNP, CMP ####[facility] Lkdadmnxrf049[address] [place], [place] [address]Dr. Airam Deuce CBC AUTO DIFFon 10-24-2022 BASO # 0.0 103/ul Normal 0.0-0.1 [facility] Comment on above: Performed By: #### C BC ####[facility] Bfegdclyzr6532[address] [place], [place] [address]Dr. Airam Tripathi Basophils/100 WBC (Bld) 0.3 % Normal 0.2-2.0 [facility] Comment on above: Performed By: #### C BC ####[facility] Zavjwoyihb20[address] [place], [place] [address]Dr. Airam Tripathi EO # 0.3 103/ul Normal 0.0-0.7 [facility] Comment on above: Performed By: #### C BC ####[facility] Ytorvlnxaz5975[address] [place], [place] [address]Dr. Airam Tripathi Eosinophils/100 WBC (Bld) 4.2 % Normal 0.9-7.0 [facility] Comment on above: Performed By: #### C BC ####[facility] Gdgwlnkuai81[address] [place] [address]Dr. Airam Tripathi Erythrocyte distribution width (RBC) [Ratio] 15.6 % Critically high 11.0-15.0 [facility] Comment on above: Performed By: #### C BC ####[facility] Piiqwtfgfq1553 [place] [address]Dr. Airam Tripathi Hematocrit (Bld) [Volume fraction] 30.0 % Critically low 36.0-48.0 [facility] Comment on above: Performed By: #### C BC ####[facility] Vihrqscnre805[address] [place], [place] [address]Dr. Airam Tripathi Hemoglobin (Bld) [Mass/Vol] 9.3 g/dL Critically low 12.0-16.0 [facility] Comment on above: Performed By: #### C BC ####[facility] Vqjctziplh3[address] [place], [place] [address]Dr. Airam Tripathi IG # 0.03 10e3/ul Normal 0.00-0.03 [facility] Comment on above: Performed By: #### C BC ####[facility] Bjoivqfybm9694[address] [place], [place] [address]Dr. Airam Tripathi IG % 0.5 % Normal 0.0-0.5 [facility] Comment on above: Performed By: #### C BC ####[facility] Oblpxnnfdk3494[address] [place], [place] [address]Dr. Airam Tripathi LYMPH # 1.4 103/ul Normal 1.2-3.8 [facility] Comment on above: Performed By: #### C BC ####[facility] Jgrbsrtucu3966[address] [place], [place] [address]Dr. Airam Tripathi Lymphocytes/100 WBC (Bld) 22.5 % Normal 20.5-60.0 [facility] Comment on above: Performed By: #### C BC ####[facility] Zsalwdsmqk7[address] [place], [place] [address]Dr. Airam Tripathi MANUAL DIFF REQ NO Normal [facility] Comment on above: Performed By: #### C BC ####[facility] Ethdbqptrk3[address] [place] [address]DrKianna Airam Deuce MCH (RBC) [Entitic mass] 28.7 pg Normal 26.7-34.0 [facility] Comment on above: Performed By: #### C BC ####[facility] Amuiiiskke[address]697 [place] [address]DrKianna Tripathi MCHC (RBC) [Mass/Vol] 31.0 g/dL Normal 29.9-35.2 [facility] Comment on above: Performed By: #### C BC ####[facility] Timvwwospp5620 [place] [address]DrKianna Tripathi MCV (RBC) [Entitic vol] 92.6 fL Normal 81.0-99.0 [facility] Comment on above: Performed By: #### C BC ####[facility] Qksboielgc[address] [place], [place] [address]DrKianna Tripathi MONO # 0.4 103/ul Normal 0.3-0.8 [facility] Comment on above: Performed By: #### C BC ####[facility] Bpnfffldar16[address] [place], [place] [address]DrKianna Tripathi Monocytes/100 WBC (Bld) 7.3 % Normal 1.7-12.0 [facility] Comment on above: Performed By: #### C BC ####[facility] Dezwdsmxqq1[address] [place], [place] [address]DrKianna Tripathi NEUT # 3.9 103/ul Normal 1.4-6.5 [facility] Comment on above: Performed By: #### C BC ####[facility] Llkpkufinn[address] [place], [place] [address]DrKianna Tripathi Neutrophils/100 WBC (Bld) 65.2 % Normal 43.0-75.0 [facility] Comment on above: Performed By: #### C BC ####[facility] Uoipfhpgkd6[address] [place], [place] [address]DrKianna Tripathi Platelet mean volume (Bld) [Entitic vol] 9.0 fL Critically low 9.5-13.5 [facility] Comment on above: Performed By: #### C BC ####[facility] Nkyhqeddvw[address]994 [place] [address]Dr. Airam Tripathi PLT 247 103/ul Normal 150-450 [facility] Comment on above: Performed By: #### C BC ####[facility] Btnkhgrzar[address] [place] [address]Dr. Airam Tripathi RBC 3.24 106/ul Critically low 4.20-5.40 [facility] Comment on above: Performed By: #### C BC ####[facility] Mwsdvprwrr[address]41 [place] [address]Dr. Airam Tripathi WBC 6.0 103/ul Normal 4.0-11.0 [facility] Comment on above: Performed By: #### C BC ####[facility] Gfiuzojcro[address] [place] [address]Dr. Airam Tripathi CULTURE URINEon 10-24-2022 CULTURE URINE Culture Observations : LIGHT GROWTH OF MIXED GENITAL GREGORY. NO POTENTIAL PATHOGENS SEEN. Normal [facility] Comment on above: Performed By: #### U RCX ####[facility] [address]fzvwrndmh[address] [place], [place] [address]Dr. Selenaneil Tripathi POINT OF CARE GLUCOSEon Glucose [Mass/Vol] 118 mg/dL Critically high 74-106 T [facility] Comment on above: Performed By: #### P OCGLUC ####[facility] [facility] [address] [place], [place] [address]DrKianna Tripathi PROF 14(COMP METB)on 023 Albumin [Mass/Vol] 3.1 g/dL Critically low 3.4-5.0 Th [facility] Comment on above: Performed By: #### H STROPN, BNP, CMP ####[facility] Hanadfnmfw[address] [place] [address]Dr. Airam Tripathi Albumin/Globulin [Mass ratio] 1.0 {ratio} Normal [facility] Comment on above: Performed By: #### H STROPN, BNP, CMP ####[facility] Aaxoojlpgy[address] [place] [address]Dr. Airam Tripathi ALP [Catalytic activity/Vol] 131 U/L Critically high 46-116 The [facility] Comment on above: Performed By: #### H STROPN, BNP, CMP ####[facility] Yfpltwfldk6[address] [place] [address]Dr. Airam Tripathi ALT [Catalytic activity/Vol] 26 U/L Normal 14-59 The [facility] Comment on above: Performed By: #### H STROPN, BNP, CMP ####[facility] Aopkpfyjsa40[address] [place] [address]Dr. Airam Tripathi Anion gap [Moles/Vol] 11.2 mmol/L Normal Th e [facility] Comment on above: Performed By: #### H STROPN, BNP, CMP ####[facility] Fvuyrrbjoq44[address] [place] [address]Dr. Airam Tripathi AST [Catalytic activity/Vol] 31 U/L Normal 15-37 [facility] Comment on above: Performed By: #### H STROPN, BNP, CMP ####[facility] Ogdjuusmsg85[address] [place] [address]Dr. Airam Tripathi Bilirubin [Mass/Vol] 0.2 mg/dL Normal 0.2-1.0 [facility] Comment on above: Performed By: #### H STROPN, BNP, CMP ####[facility] Biaqlevlcr[address] [place] [address]Dr. Airam Tripathi Calcium [Mass/Vol] 8.6 mg/dL Normal 8.5-10.1 [facility] Comment on above: Performed By: #### H STROPN, BNP, CMP ####[facility] Gppbnegbcp[address] [place] [address]Dr. Airam Tripathi Chloride [Moles/Vol] 102 mmol/L Normal 98-107 The [facility] Comment on above: Performed By: #### H STROPN, BNP, CMP ####[facility] Nqcgdlxzgw65[address] [place] [address]Dr. Airam Tripathi CO2 [Moles/Vol] 27.4 mmol/L Normal 21.0-32.0 [facility] Comment on above: Performed By: #### H STROPN, BNP, CMP ####[facility] Jdnkgdasrk6[address] [place] [address]Dr. Airam Tripathi Creatinine [Mass/Vol] 1.23 mg/dL Critically high 0.55-1.02 [facility] Comment on above: Performed By: #### H STROPN, BNP, CMP ####[facility] [address]alekng[address] [place], [place] [address]Dr. Airam Tripathi EGFR-AF CITIZEN OF [place] 54 mL/min/1.73m2 Critically low >=60 [facility] Comment on above: Performed By: #### H STROPN, BNP, CMP ####[facility] Umydgovqmo[address] [place], [place] [address]Dr. Airam Tripathi EGFR-NON AF CITIZEN OF [place] 45 mL/min/1.73m2 Critically low >=60 [facility] Comment on above: Performed By: #### H STROPN, BNP, CMP ####[facility] Fmrbhaqvcq[address] [place], [place] [address]Dr. Airam Tripathi Globulin (S) [Mass/Vol] 3.1 g/dL Normal [facility] Comment on above: Performed By: #### H STROPN, BNP, CMP ####[facility] Kdtknlxrnx0096 [place] [address]Dr. Airam Tripathi Glucose [Mass/Vol] 90 mg/dL Normal 74-106 [facility] Comment on above: Performed By: #### H STROPN, BNP, CMP ####[facility] Phghjsbbzh97[address] [place], [place] [address]Dr. Airam Tripathi Potassium [Moles/Vol] 5.6 mmol/L Critically high 3.5-5.1 The [facility] Comment on above: Performed By: #### H STROPN, BNP, CMP ####[facility] Mclcknzpps75[address] [place] [address]Dr. Airam Tripathi Protein [Mass/Vol] 6.2 g/dL Critically low 6.4-8.2 Th [facility] Comment on above: Performed By: #### H STROPN, BNP, CMP ####[facility] Rqznytlpqe[address] [place] [id number]. Airam Tripathi Sodium [Moles/Vol] 135 mmol/L Critically low 136-145 Th [facility] Comment on above: Performed By: #### H STROPN, BNP, CMP ####[facility] Obqwdmcauv64[address] [place] [address]Dr. Airam Tripathi Urea nitrogen [Mass/Vol] 38.0 mg/dL Critically high 7.0-18.0 [facility] Comment on above: Performed By: #### H STROPN, BNP, CMP ####[facility] Jjykmkbpyf2[address] [place] [address]Dr. Airam Tripathi Urea nitrogen/Creatinine [Mass ratio] 30.9 mg/mg Normal [facility] Comment on above: Performed By: #### H STROPN, BNP, CMP ####[facility] Snrtxqxqnj3437 [place] [address]Dr. Airam Tripathi TROPONIN, HIGH SENSITIVITYon 10-24-2022 HSTROP 8.0 pg/mL Normal 4.0-51.3 [facility] Comment on above: Result Comment: CUT- OFF POINTS HAVE BEEN ESTABLISHED BASED ON THE FOURTH UNIVERSAL DEFINITIONS OF MYOCARDIALINFARCTION. THE UPPER REFERENCE LIMIT (URL) OF TROPONIN, DEFINED THE 99TH PERCENTILE OFcTnI DISTRIBUTION IN A REFERENCE POPULATION, HAS BEEN CONFIRMED THE DECISION THRESHOLDFOR AR DIAGNOSIS. Performed By: #### H STROPN, BNP, CMP ####[facility] Kfatuxxubp[address] [place] [address]Dr. Airam Tripathi UA RANDOM W/MICROSCOPICon BACTERIA NONE SEEN Normal NONE SEEN The [facility] Comment on above: Performed By: #### U AMIC ####[facility] Diexylnavj6[address] [place] [address]Dr. Airam Tripathi Bilirubin Ql (U) Negative Normal NEGATIVE The [facility] Comment on above: Performed By: #### U AMIC ####[facility] Fffcgimsrx8814 [place] [address]Dr. Airam Tripathi CAST NONE SEEN Normal NONE SEEN The [facility] Comment on above: Performed By: #### U AMIC ####[facility] Barstdfeao[address]3 [place] [address]Dr. Airam Tripathi Clarity (U) CLEAR Normal CLEAR The [facility] Comment on above: Performed By: #### U AMIC ####[facility] Izosnbnaom6606 [place] [address]Dr. Selenaneil Tripathi Color (U) LT. YELLOW Normal YELLOW The [facility] Comment on above: Performed By: #### U AMIC ####[facility] Wphufyldxi84[address] [place] [address]Dr. Selenaneil Tripathi Crystals LM Nom (Urine sed) NONE SEEN Normal NONE SEEN The [facility] Comment on above: Performed By: #### U AMIC ####[facility] [address]ydernyns[address] [place], [place] [address]Dr. Selenaneil Tripathi Epithelial cells LM Ql (Urine sed) RARE Normal NONE SEEN /RARE The [facility] Comment on above: Performed By: #### U AMIC ####[facility] Iuisembihc[address] [place], [place] [address]Dr. Airam Tripathi Glucose Ql (U) Negative Normal NEGATIVE The [facility] Comment on above: Performed By: #### U AMIC ####[facility] Fzpgbcglts[address] [place], [place] [address]Dr. Airam Tripathi Hemoglobin Ql (U) Negative Normal NEGATIVE The [facility] Comment on above: Performed By: #### U AMIC ####[facility] Rsoueqvsvb[address] [place], [place] [address]Dr. Airam Tripathi Ketones Ql (U) Negative Normal NEGATIVE The [facility] Comment on above: Performed By: #### U AMIC ####[facility] Rhgfoopbmd[address] [place], [place] [address]Dr. Selenalan Tripathi LEUKOCYTES Negative Normal NEGATIVE The [facility] Comment on above: Performed By: #### U AMIC ####[facility] Sbvrrmbhkh[address] [place], [place] [address]Dr. Yilan Tripathi MUCOUS NONE SEEN Normal NONE SEEN The [facility] Comment on above: Performed By: #### U AMIC ####[facility] Sfbzkswavy8554 [place] [address]Dr. Airam Tripathi Nitrite Ql (U) Negative Normal NEGATIVE The [facility] Comment on above: Performed By: #### U AMIC ####[facility] Fopipscjnl1199 [place] [address]Dr. Airam Tripathi pH (U) 7.0 [pH] Normal 5-9 [facility] Comment on above: Performed By: #### U AMIC ####[facility] Eyntcqfmun79[address] [place] [address]Dr. Airam Deuce RBC 0-2 Normal 0-2 [facility] Comment on above: Performed By: #### U AMIC ####[facility] [address]titfosfez[address] [place], [place] [address]Dr. Airam Tripathi SPEC GRAVITY 1.015 Normal 1.005-<=1.02 5 [facility] Comment on above: Performed By: #### U AMIC ####[facility] [address]sfxihdza[address] [place], [place] [address]Dr. Airam Tripathi UA PROTEIN Negative Normal NEGATIVE/ TRACE The [facility] Comment on above: Performed By: #### U AMIC ####[facility] Exdtnsxucc[address] [place], [place] [address]Dr. Airam Deuce Urobilinogen Qn (U) 0.2 {Ligia'U}/dL Normal 0.2 - 1. 0 The [facility] Comment on above: Performed By: #### U AMIC ####[facility] [address]ncjrwd[address] [place], [place] [address]Dr. Airam Tripathi WBC NONE SEEN Normal NONE SEEN The [facility] Comment on above: Performed By: #### U AMIC ####[facility] Zllaofhcql6596 [place] [address]Dr. Airam Tripathi XR CHEST 1 Von 10-24-2022 XR CHEST 1 V Normal [facility] CBC AUTO DIFFon 10-19-2022 BASO # 0.0 103/ul Normal 0.0-0.1 [facility] Comment on above: Performed By: #### C BC ####[facility] [address]rsxmecs[address] [place], [place] [address]Dr. Airam Tripathi Basophils/100 WBC (Bld) 0.5 % Normal 0.2-2.0 The [facility] Comment on above: Performed By: #### C BC ####[facility] Yhtcwwehoy[address] [place], [place] [address]Dr. Airam Tripathi EO # 0.3 103/ul Normal 0.0-0.7 [facility] Comment on above: Performed By: #### C BC ####[facility] Veifqiimii[address] [place], [place] [address]Dr. Airam Tripathi Eosinophils/100 WBC (Bld) 3.3 % Normal 0.9-7.0 [facility] Comment on above: Performed By: #### C BC ####[facility] Ormdbmfdcy[address] [place], [place] [address]Dr. Airam Tripathi Erythrocyte distribution width (RBC) [Ratio] 15.0 % Normal 11.0-15.0 [facility] Comment on above: Performed By: #### C BC ####[facility] Kyvwnxzbkt7[address] [place], [place] [address]Dr. Airam Tripathi Hematocrit (Bld) [Volume fraction] 32.9 % Critically low 36.0-48.0 [facility] Comment on above: Performed By: #### C BC ####[facility] Ijnxgomwii[address] [place], [place] [address]Dr. Airam Tripathi Hemoglobin (Bld) [Mass/Vol] 10.1 g/dL Critically low 12.0-16.0 [facility] Comment on above: Performed By: #### C BC ####[facility] [address]zxbrjbj[address] [place], [place] [address]Dr. Airam Tripathi IG # 0.04 10e3/ul Critically high 0.00-0.03 [facility] Comment on above: Performed By: #### C BC ####[facility] Egvmbutcwp[address] [place], [place] [address]Dr. Airam Tripathi IG % 0.5 % Normal 0.0-0.5 [facility] Comment on above: Performed By: #### C BC ####[facility] [address]jczjhcl[address] [place] [phone]. Airam Deuce LYMPH # 1.5 103/ul Normal 1.2-3.8 The [facility] Comment on above: Performed By: #### C BC ####[facility] Ybtbjnvxkw3676 [place] [address]Dr. Selenaneil Tripathi Lymphocytes/100 WBC (Bld) 18.1 % Critically low 20.5-60.0 [facility] Comment on above: Performed By: #### C BC ####[facility] Caohecdjnj43[address] [place] [address]Dr. Selenaneil Tripathi MANUAL DIFF REQ NO Normal [facility] Comment on above: Performed By: #### C BC ####[facility] Ikjnezaots[address]109 [place] [address]Dr. Airam Deuce MCH (RBC) [Entitic mass] 28.3 pg Normal 26.7-34.0 [facility] Comment on above: Performed By: #### C BC ####[facility] [address]wngzuinuv6[address] [place], [place] [address]Dr. Airam Deuce MCHC (RBC) [Mass/Vol] 30.7 g/dL Normal 29.9-35.2 [facility] Comment on above: Performed By: #### C BC ####[facility] Uuxwyndskt9392 [place] [address]Dr. Selenaneil Tripathi MCV (RBC) [Entitic vol] 92.2 fL Normal 81.0-99.0 [facility] Comment on above: Performed By: #### C BC ####[facility] Xtpmakxcps4307 [place] [address]Dr. Selenaneil Tripathi MONO # 0.7 103/ul Normal 0.3-0.8 The [facility] Comment on above: Performed By: #### C BC ####[facility] Tpirsiujao[address] [place], [place] [address]Dr. Selenaneil Tripathi Monocytes/100 WBC (Bld) 7.7 % Normal 1.7-12.0 [facility] Comment on above: Performed By: #### C BC ####[facility] Dzzktwoata1599 [place] [address]Dr. Airam Tripathi NEUT # 5.9 103/ul Normal 1.4-6.5 [facility] Comment on above: Performed By: #### C BC ####[facility] Dsyydutfae9045 [place] [address]Dr. Airam Tripathi Neutrophils/100 WBC (Bld) 69.9 % Normal 43.0-75.0 [facility] Comment on above: Performed By: #### C BC ####[facility] Qzjilexklp2755 [place] [address]Dr. Airam Tripathi Platelet mean volume (Bld) [Entitic vol] 9.3 fL Critically low 9.5-13.5 [facility] Comment on above: Performed By: #### C BC ####[facility] Hotmhlftpi[address] [place], [place] [address]Dr. Airam Deuce PLT 293 103/ul Normal 150-450 [facility] Comment on above: Performed By: #### C BC ####[facility] Z[address]csctsvpz[address] [place], [place] [address]Dr. Airam Deuce RBC 3.57 106/ul Critically low 4.20-5.40 [facility] Comment on above: Performed By: #### C BC ####[facility] [address]ccybavxqk[address] [place], [place] [address]Dr. Airam Tripathi WBC 8.4 103/ul Normal 4.0-11.0 [facility] Comment on above: Performed By: #### C BC ####[facility] [address]xaelrxokv[address] [place], [place] [address]DrKianna Tripathi PROF 14(COMP METB)on 023 Albumin [Mass/Vol] 3.1 g/dL Critically low 3.4-5.0 [facility] Comment on above: Performed By: #### C MP ####[facility] Waotpyaopn7[address] [place] [address]Dr. Selenaneil Deuce Albumin/Globulin [Mass ratio] 0.9 {ratio} Normal [facility] Comment on above: Performed By: #### C MP ####[facility] Sprddfaoao8897 [place] [address]Dr. Airam Tripathi ALP [Catalytic activity/Vol] 117 U/L Critically high 46-116 [facility] Comment on above: Performed By: #### C MP ####[facility] Knsmcobhuk[address] [place], [place] [address]Dr. Airam Tripathi ALT [Catalytic activity/Vol] 24 U/L Normal 14-59 [facility] Comment on above: Performed By: #### C MP ####[facility] Rxovgwrhzz825[address] [place], [place] [address]Dr. Airam Tripathi Anion gap [Moles/Vol] 11.1 mmol/L Normal [facility] Comment on above: Performed By: #### C MP ####[facility] Bkmesxjaty07[address] [place], [place] [address]Dr. Airam Tripathi AST [Catalytic activity/Vol] 22 U/L Normal 15-37 [facility] Comment on above: Performed By: #### C MP ####[facility] Nnkeeclehn[address] [place], [place] [address]Dr. Airam Tripathi Bilirubin [Mass/Vol] 0.2 mg/dL Normal 0.2-1.0 [facility] Comment on above: Performed By: #### C MP ####[facility] Xkmbhsmgec04[address] [place], [place] [address]Dr. Airam Tripathi Calcium [Mass/Vol] 8.4 mg/dL Critically low 8.5-10.1 [facility] Comment on above: Performed By: #### C MP ####[facility] [address]yyqegsuwk13[address] [place], [place] [address]Dr. Airam Deuce Chloride [Moles/Vol] 103 mmol/L Normal 98-107 [facility] Comment on above: Performed By: #### C MP ####[facility] Hotdpisduq238[address] [place], [place] [address]Dr. Airam Deuce CO2 [Moles/Vol] 25.0 mmol/L Normal 21.0-32.0 [facility] Comment on above: Performed By: #### C MP ####[facility] Uyyjaljwua[address] [place], [place] [address]Dr. Selenaneil Deuce Creatinine [Mass/Vol] 1.27 mg/dL Critically high 0.55-1.02 [facility] Comment on above: Performed By: #### C MP ####[facility] Prodsrygoi8934 [place] [address]Dr. Selenaneil Deuce EGFR-AF CITIZEN OF [place] 52 mL/min/1.73m2 Critically low >=60 [facility] Comment on above: Performed By: #### C MP ####[facility] Bxwchtghom5763 [place] [address]Dr. Selenaneil Deuce EGFR-NON AF CITIZEN OF [place] 43 mL/min/1.73m2 Critically low >=60 [facility] Comment on above: Performed By: #### C MP ####[facility] Mykmvytqmi34[address] [place], [place] [address]Dr. Airam Tripathi Globulin (S) [Mass/Vol] 3.3 g/dL Normal [facility] Comment on above: Performed By: #### C MP ####[facility] Gqziiztpsm[address] [place], [place] [address]Dr. Airam Tripathi Glucose [Mass/Vol] 90 mg/dL Normal 74-106 [facility] Comment on above: Performed By: #### C MP ####[facility] Kvbtyeldvn97[address] [place], [place] [address]Dr. Airam Tripathi Potassium [Moles/Vol] 5.1 mmol/L Normal 3.5-5.1 [facility] Comment on above: Performed By: #### C MP ####[facility] Rueheubxxm[address] [place], [place] [address]Dr. Airam Tripathi Protein [Mass/Vol] 6.4 g/dL Normal 6.4-8.2 [facility] Comment on above: Performed By: #### C MP ####[facility] Uqgubkpfmm[address] [place], [place] [address]Dr. Airam Tripathi Sodium [Moles/Vol] 134 mmol/L Critically low 136-145 Th [facility] Comment on above: Performed By: #### C MP ####[facility] Tmwhobiars7[address] [place], [place] [address]Dr. Airam Tripathi Urea nitrogen [Mass/Vol] 33.0 mg/dL Critically high 7.0-18.0 [facility] Comment on above: Performed By: #### C MP ####[facility] Xnevqhvhas[address] [place], [place] [address]Dr. Airam Tripathi Urea nitrogen/Creatinine [Mass ratio] 26.0 mg/mg Normal [facility] Comment on above: Performed By: #### C MP ####[facility] Yhyihuafox08[address] [place], [place] [address]Dr. Airam Tripathi OSMOLALITYon 10-15-2022 Osmolality [Osmolality] 272 mosm/kg Critically low 275-295 [facility] Comment on above: Performed By: #### O SMO ####[facility] Acnwwqbipg[address] [place], [place] [address]Dr. Airam Tripathi BNPon 10-12-2022 Natriuretic peptide B (Bld) [Mass/Vol] 1337.0 pg/mL Critically high <=900.0 [facility] Comment on above: Performed By: #### B DONKEY ENGINE FIRER/FIREMAN ####[facility] Gykfxumbwf7[address] [place], [place] [address]Dr. Airam Tripathi CBC AUTO DIFFon 10-12-2022 BASO # 0.0 103/ul Normal 0.0-0.1 [facility] Comment on above: Performed By: #### C BC ####[facility] Lzeldgmtgg[address] [place], [place] [address]Dr. Airam Tripathi Basophils/100 WBC (Bld) 0.6 % Normal 0.2-2.0 [facility] Comment on above: Performed By: #### C BC ####[facility] Aalodgpcqk[address] [place], [place] [address]Dr. Airam Tripathi EO # 0.2 103/ul Normal 0.0-0.7 [facility] Comment on above: Performed By: #### C BC ####[facility] [address]nlsiphkud58[address] [place], [place] [address]Dr. Airam Tripathi Eosinophils/100 WBC (Bld) 2.3 % Normal 0.9-7.0 [facility] Comment on above: Performed By: #### C BC ####[facility] Lhrzmjdipy0774 [place] [address]Dr. Airam Tripathi Erythrocyte distribution width (RBC) [Ratio] 15.1 % Critically high 11.0-15.0 [facility] Comment on above: Performed By: #### C BC ####[facility] [address]xtkjpmbso[address] [place], [place] [address]Dr. Airam Tripathi Hematocrit (Bld) [Volume fraction] 35.9 % Critically low 36.0-48.0 [facility] Comment on above: Performed By: #### C BC ####[facility] [address]zhnirektz3[address] [place], [place] [address]Dr. Airam Tripathi Hemoglobin (Bld) [Mass/Vol] 11.4 g/dL Critically low 12.0-16.0 [facility] Comment on above: Performed By: #### C BC ####[facility] Tgjcwozaem[address] [place], [place] [address]Dr. Airam Tripathi IG # 0.03 10e3/ul Normal 0.00-0.03 [facility] Comment on above: Performed By: #### C BC ####[facility] Siglcotvom50[address] [place], [place] [address]Dr. Airam Tripathi IG % 0.5 % Normal 0.0-0.5 [facility] Comment on above: Performed By: #### C BC ####[facility] Pnvjueeluj[address] [place], [place] [address]Dr. Airam Tripathi LYMPH # 1.1 103/ul Critically low 1.2-3.8 [facility] Comment on above: Performed By: #### C BC ####[facility] Avbonvikfv39[address] [place], [place] [address]Dr. Airam Tripathi Lymphocytes/100 WBC (Bld) 17.2 % Critically low 20.5-60.0 [facility] Comment on above: Performed By: #### C BC ####[facility] Mdodlgflvn020[address] [place], [place] [address]Dr. Airam Tripathi MANUAL DIFF REQ NO Normal [facility] Comment on above: Performed By: #### C BC ####[facility] Iejmhitubz4493 [place] [phone]. Airam Deuce MCH (RBC) [Entitic mass] 28.8 pg Normal 26.7-34.0 [facility] Comment on above: Performed By: #### C BC ####[facility] Pypvmznjqd0316 [place] [phone]. Airam Deuce MCHC (RBC) [Mass/Vol] 31.8 g/dL Normal 29.9-35.2 [facility] Comment on above: Performed By: #### C BC ####[facility] Pjrpmugvkj5882 [place] [address]Dr. Selenaenil Tripathi MCV (RBC) [Entitic vol] 90.7 fL Normal 81.0-99.0 [facility] Comment on above: Performed By: #### C BC ####[facility] Jcoumcufgi33[address] [place], [place] [address]Dr. Airam Tripathi MONO # 0.5 103/ul Normal 0.3-0.8 [facility] Comment on above: Performed By: #### C BC ####[facility] Pbwrklviuz[address] [place], [place] [address]Dr. Airam Tripathi Monocytes/100 WBC (Bld) 7.7 % Normal 1.7-12.0 [facility] Comment on above: Performed By: #### C BC ####[facility] Erxezknmqv4[address] [place], [place] [address]Dr. Airam Tripathi NEUT # 4.7 103/ul Normal 1.4-6.5 [facility] Comment on above: Performed By: #### C BC ####[facility] Ogtdlsqnbp[address] [place], [place] [address]Dr. Airam Tripathi Neutrophils/100 WBC (Bld) 71.7 % Normal 43.0-75.0 [facility] Comment on above: Performed By: #### C BC ####[facility] [address]arzikknp[address] [place], [place] [address]Dr. Airam Tripathi Platelet mean volume (Bld) [Entitic vol] 8.2 fL Critically low 9.5-13.5 [facility] Comment on above: Performed By: #### C BC ####[facility] Lqfgbgkrup57[address] [place] [address]Dr. Airam Tripathi PLT 292 103/ul Normal 150-450 [facility] Comment on above: Performed By: #### C BC ####[facility] Amyvvngyvr4[address] [place] [phone]. Selenaneil Tripathi RBC 3.96 106/ul Critically low 4.20-5.40 [facility] Comment on above: Performed By: #### C BC ####[facility] Ghcdrungot2116 [place] [phone]. Airam Tripathi WBC 6.6 103/ul Normal 4.0-11.0 [facility] Comment on above: Performed By: #### C BC ####[facility] Njvjptbfwf69[address] [place] [address]Dr. Airam Tripathi PROF 14(COMP METB)on 023 Albumin [Mass/Vol] 3.3 g/dL Critically low 3.4-5.0 [facility] Comment on above: Performed By: #### C MP ####[facility] Hdxckqkdiu[address] [place], [place] [address]Dr. Airam Tripathi Albumin/Globulin [Mass ratio] 0.9 {ratio} Normal [facility] Comment on above: Performed By: #### C MP ####[facility] Oghoufheuv33[address] [place] [address]Dr. Airam Tripathi ALP [Catalytic activity/Vol] 130 U/L Critically high 46-116 [facility] Comment on above: Performed By: #### C MP ####[facility] Srzlwysriu9376 [place] [address]Dr. Airam Tripathi ALT [Catalytic activity/Vol] 23 U/L Normal 14-59 [facility] Comment on above: Performed By: #### C MP ####[facility] Ebggbxncix4920 [place] [phone]. Airam Tripathi Anion gap [Moles/Vol] 11.7 mmol/L Normal [facility] Comment on above: Performed By: #### C MP ####[facility] Zhmqxixhbf2889 [place] [address]Dr. Airam Tripathi AST [Catalytic activity/Vol] 23 U/L Normal 15-37 [facility] Comment on above: Performed By: #### C MP ####[facility] Xumrcabibh1327 [place] [address]Dr. Airam Tripathi Bilirubin [Mass/Vol] 0.3 mg/dL Normal 0.2-1.0 [facility] Comment on above: Performed By: #### C MP ####[facility] Pmyeaxnxse65[address] [place], [place] [address]Dr. Airam Tripathi Calcium [Mass/Vol] 8.7 mg/dL Normal 8.5-10.1 [facility] Comment on above: Performed By: #### C MP ####[facility] Gdleyxczxt[address] [place], [place] [address]Dr. Airam Tripathi Chloride [Moles/Vol] 99 mmol/L Normal 98-107 [facility] Comment on above: Performed By: #### C MP ####[facility] Whgmoeqwuq95[address] [place], [place] [address]Dr. Airam Tripathi CO2 [Moles/Vol] 28.5 mmol/L Normal 21.0-32.0 [facility] Comment on above: Performed By: #### C MP ####[facility] Csltudsitj4[address] [place], [place] [address]Dr. Airam Tripathi Creatinine [Mass/Vol] 1.06 mg/dL Critically high 0.55-1.02 [facility] Comment on above: Performed By: #### C MP ####[facility] Bawzjoqevr2[address] [place], [place] [address]Dr. Airam Deuce EGFR-AF CITIZEN OF [place] >60 Normal >=60 [facility] Comment on above: Performed By: #### C MP ####[facility] Unwbtjzlbp56[address] [place], [place] [address]Dr. Airam Deuce EGFR-NON AF CITIZEN OF [place] 53 mL/min/1.73m2 Critically low >=60 [facility] Comment on above: Performed By: #### C MP ####[facility] Wlqswrwhkz7146 [place] [phone]. Airam Tripathi Globulin (S) [Mass/Vol] 3.5 g/dL Normal [facility] Comment on above: Performed By: #### C MP ####[facility] Qulyxeegxz1470 [place] [phone]. Airam Tripathi Glucose [Mass/Vol] 79 mg/dL Normal 74-106 [facility] Comment on above: Performed By: #### C MP ####[facility] Neyutoovnh0813 [place] [address]Dr. Airam Tripathi Potassium [Moles/Vol] 4.2 mmol/L Normal 3.5-5.1 [facility] Comment on above: Performed By: #### C MP ####[facility] Mmrkvcrfeg4060[address] [place], [place] [address]Dr. Airam Tripathi Protein [Mass/Vol] 6.8 g/dL Normal 6.4-8.2 [facility] Comment on above: Performed By: #### C MP ####[facility] Jygrvzbfvu6586 [place] [address]Dr. Airam Tripathi Sodium [Moles/Vol] 135 mmol/L Critically low 136-145 [facility] Comment on above: Performed By: #### C MP ####[facility] Mfcyocitne6740[address] [place], [place] [address]Dr. Airam Tripathi Urea nitrogen [Mass/Vol] 16.0 mg/dL Normal 7.0-18.0 [facility] Comment on above: Performed By: #### C MP ####[facility] Afjlsmtabx0257 [place] [address]Dr. Airam Tripathi Urea nitrogen/Creatinine [Mass ratio] 15.1 mg/mg Normal [facility] Comment on above: Performed By: #### C MP ####[facility] Tzotlrksln3538[address] [place], [place] [address]Dr. Airam Tripathi XR CHEST 1 Von 10-12-2022 XR CHEST 1 V Normal [facility] PRBC LEUKOREDUCEDon 10-10-19 PRBC LEUKOREDUCED Normal [facility] Comment on above: Performed By: #### P RBC ####[facility] Qpwamxeqar0429 [place] [address]Dr. Airam Tripathi CULTURE URINEon 10-08-2022 CULTURE URINE Normal [facility] Comment on above: Performed By: #### U RCX ####[facility] Fnlispwmpt2664[address] [place], [place] [address]Dr. Airam Tripathi OSMOLALITYon 10-08-2022 Osmolality [Osmolality] 282 mosm/kg Normal 275-295 [facility] Comment on above: Performed By: #### O SMO ####[facility] Caurpqxzgr[address] [place], [place] [address]Dr. Airam Tripathi CBC AUTO DIFFon 10-07-2022 BASO # 0.0 103/ul Normal 0.0-0.1 [facility] Comment on above: Performed By: #### C BC ####[facility] Cmqrqesxzp400[address] [place], [place] [address]Dr. Selenaneil Tripathi Basophils/100 WBC (Bld) 0.3 % Normal 0.2-2.0 [facility] Comment on above: Performed By: #### C BC ####[facility] Utpplzcqhn8972[address] [place], [place] [address]Dr. Airam Tripathi EO # 0.2 103/ul Normal 0.0-0.7 [facility] Comment on above: Performed By: #### C BC ####[facility] Bthlruinml7787[address] [place], [place] [address]Dr. Selenaneil Tripathi Eosinophils/100 WBC (Bld) 3.4 % Normal 0.9-7.0 [facility] Comment on above: Performed By: #### C BC ####[facility] Jrcnnaamjq0857[address] [place], [place] [address]Dr. Airam Deuce Erythrocyte distribution width (RBC) [Ratio] 15.2 % Critically high 11.0-15.0 [facility] Comment on above: Performed By: #### C BC ####[facility] Zlkytmetqu9398[address] [place], [place] [address]Dr. Airam Tripathi Hematocrit (Bld) [Volume fraction] 31.3 % Critically low 36.0-48.0 [facility] Comment on above: Performed By: #### C BC ####[facility] Ksnhklbxrr9234 [place] [address]Dr. Airam Tripathi Hemoglobin (Bld) [Mass/Vol] 9.9 g/dL Critically low 12.0-16.0 [facility] Comment on above: Performed By: #### C BC ####[facility] Clmqhetnpq9741 [place] [address]Dr. Airam Tripathi IG # 0.03 10e3/ul Normal 0.00-0.03 [facility] Comment on above: Performed By: #### C BC ####[facility] Okurpjsidy[address] [place], [place] [address]Dr. Airam Deuce IG % 0.4 % Normal 0.0-0.5 [facility] Comment on above: Performed By: #### C BC ####[facility] Uvzeozguue86[address] [place], [place] [address]Dr. Airam Deuce LYMPH # 1.3 103/ul Normal 1.2-3.8 [facility] Comment on above: Performed By: #### C BC ####[facility] Fiyiaocdfw7637[address] [place], [place] [address]Dr. Airam Deuce Lymphocytes/100 WBC (Bld) 19.0 % Critically low 20.5-60.0 [facility] Comment on above: Performed By: #### C BC ####[facility] Zqfwjkzvrl0762 [place] [address]Dr. Selenaneil Tripathi MANUAL DIFF REQ NO Normal [facility] Comment on above: Performed By: #### C BC ####[facility] Qgnvoryskf4825[address] [place], [place] [address]Dr. Airam Deuce MCH (RBC) [Entitic mass] 28.1 pg Normal 26.7-34.0 [facility] Comment on above: Performed By: #### C BC ####[facility] Zddalzjrbe4805 [place] [address]Dr. Airam Tripathi MCHC (RBC) [Mass/Vol] 31.6 g/dL Normal 29.9-35.2 [facility] Comment on above: Performed By: #### C BC ####[facility] Tcscvufhfb7302 [place] [address]Dr. Airam Tripathi MCV (RBC) [Entitic vol] 88.9 fL Normal 81.0-99.0 [facility] Comment on above: Performed By: #### C BC ####[facility] Wylzduqewk30[address] [place] [phone] Airam Tripathi MONO # 0.6 103/ul Normal 0.3-0.8 [facility] Comment on above: Performed By: #### C BC ####[facility] Vekzqqewoe0383 [place] [address]Dr. Airam Deuce Monocytes/100 WBC (Bld) 9.0 % Normal 1.7-12.0 [facility] Comment on above: Performed By: #### C BC ####[facility] Jtwicyjeeh7480[address] [place], [place] [address]Dr. Airam Tripathi NEUT # 4.5 103/ul Normal 1.4-6.5 [facility] Comment on above: Performed By: #### C BC ####[facility] Ebtqyiwtgu4534[address] [place], [place] [address]Dr. Airam Deuce Neutrophils/100 WBC (Bld) 67.9 % Normal 43.0-75.0 [facility] Comment on above: Performed By: #### C BC ####[facility] Ukacjqilxe3439[address] [place], [place] [address]Dr. Airam Deuce Platelet mean volume (Bld) [Entitic vol] 9.1 fL Critically low 9.5-13.5 [facility] Comment on above: Performed By: #### C BC ####[facility] Ytumebvvui9947[address] [place], [place] [address]Dr. Airam Deuce PLT 256 103/ul Normal 150-450 [facility] Comment on above: Performed By: #### C BC ####[facility] Pisgexfbgc5268 [place] [phone]. Airam Tripathi RBC 3.52 106/ul Critically low 4.20-5.40 [facility] Comment on above: Performed By: #### C BC ####[facility] Choesbgjtm8881 [place] [address]Dr. Airam Tripathi WBC 6.7 103/ul Normal 4.0-11.0 [facility] Comment on above: Performed By: #### C BC ####[facility] Xfqahabifc9462 [place] [address]Dr. Airam Tripathi PROF 14(COMP METB)on 023 Albumin [Mass/Vol] 2.8 g/dL Critically low 3.4-5.0 [facility] Comment on above: Performed By: #### C MP ####[facility] Uyykjgfvzj3929 [place] [address]Dr. Airam Tripathi Albumin/Globulin [Mass ratio] 0.9 {ratio} Normal [facility] Comment on above: Performed By: #### C MP ####[facility] Scnxyzjukg2436 [place] [address]Dr. Airam Tripathi ALP [Catalytic activity/Vol] 118 U/L Critically high 46-116 [facility] Comment on above: Performed By: #### C MP ####[facility] Rqflinsvpr[address] [place], [place] [address]Dr. Airam Tripathi ALT [Catalytic activity/Vol] 23 U/L Normal 14-59 [facility] Comment on above: Performed By: #### C MP ####[facility] Ylsxafncua8088 [place] [address]Dr. Airam Tripathi Anion gap [Moles/Vol] 12.5 mmol/L Normal [facility] Comment on above: Performed By: #### C MP ####[facility] Pfzbhpnflo2051 [place] [address]Dr. Airam Tripathi AST [Catalytic activity/Vol] 21 U/L Normal 15-37 [facility] Comment on above: Performed By: #### C MP ####[facility] Iepoyrfbcz8434 [place] [address]Dr. Airam Tripathi Bilirubin [Mass/Vol] 0.4 mg/dL Normal 0.2-1.0 [facility] Comment on above: Performed By: #### C MP ####[facility] Ipqtgllodd2017 [place] [phone]. Airam Tripathi Calcium [Mass/Vol] 8.2 mg/dL Critically low 8.5-10.1 [facility] Comment on above: Performed By: #### C MP ####[facility] Svtlgtbeqw4926 [place] [phone]. Airam Tripathi Chloride [Moles/Vol] 99 mmol/L Normal 98-107 [facility] Comment on above: Performed By: #### C MP ####[facility] Arbcmibhau4919 [place] [phone]. Airam Tripathi CO2 [Moles/Vol] 24.9 mmol/L Normal 21.0-32.0 [facility] Comment on above: Performed By: #### C MP ####[facility] Qjdyzvgxrb47[address] [place], [place] [address]Dr. Airam Deuce Creatinine [Mass/Vol] 1.61 mg/dL Critically high 0.55-1.02 [facility] Comment on above: Performed By: #### C MP ####[facility] Eujeatnkqo3032 [place] [address]Dr. Airam Deuce EGFR-AF CITIZEN OF [place] 40 mL/min/1.73m2 Critically low >=60 [facility] Comment on above: Performed By: #### C MP ####[facility] Whcagyicfu9781 [place] [address]Dr. Airam Deuce EGFR-NON AF CITIZEN OF [place] 33 mL/min/1.73m2 Critically low >=60 [facility] Comment on above: Performed By: #### C MP ####[facility] Fhhczemiab39[address] [place], [place] [address]Dr. Airam Deuce Globulin (S) [Mass/Vol] 3.2 g/dL Normal [facility] Comment on above: Performed By: #### C MP ####[facility] Bxxwpaxtko5419 [place] [phone]. Airam Tripathi Glucose [Mass/Vol] 67 mg/dL Critically low 74-106 [facility] Comment on above: Performed By: #### C MP ####[facility] Mquamipcto0701 [place] [address]Dr. Airam Deuce Potassium [Moles/Vol] 5.4 mmol/L Critically high 3.5-5.1 [facility] Comment on above: Performed By: #### C MP ####[facility] Lqajyjhdbx9[address] [place], [place] [address]Dr. Airam Deuce Protein [Mass/Vol] 6.0 g/dL Critically low 6.4-8.2 [facility] Comment on above: Performed By: #### C MP ####[facility] Ydqwcaztbd3116[address] [place], [place] [address]Dr. Airam Tripathi Sodium [Moles/Vol] 131 mmol/L Critically low 136-145 [facility] Comment on above: Performed By: #### C MP ####[facility] Ovirzzblyg7919[address] [place], [place] [address]Dr. Airam Tripathi Urea nitrogen [Mass/Vol] 43.0 mg/dL Critically high 7.0-18.0 [facility] Comment on above: Performed By: #### C MP ####[facility] Esqbxouisn888[address] [place], [place] [address]Dr. Airam Tripathi Urea nitrogen/Creatinine [Mass ratio] 26.7 mg/mg Normal [facility] Comment on above: Performed By: #### C MP ####[facility] Ibyoarmdfw5042[address] [place], [place] [address]Dr. Airam Tripathi CBC AUTO DIFFon 10-06-2022 BASO # 0.0 103/ul Normal 0.0-0.1 [facility] Comment on above: Performed By: #### C BC ####[facility] Kxcbtcjakk30[address] [place], [place] [address]Dr. Airam Tripathi Basophils/100 WBC (Bld) 0.3 % Normal 0.2-2.0 [facility] Comment on above: Performed By: #### C BC ####[facility] Stdzfqutsh75112[address] [place], [place] [address]Dr. Airam Tripathi EO # 0.2 103/ul Normal 0.0-0.7 [facility] Comment on above: Performed By: #### C BC ####[facility] Ommmqscyii7142[address] [place], [place] [address]Dr. Airam Tripathi Eosinophils/100 WBC (Bld) 3.1 % Normal 0.9-7.0 [facility] Comment on above: Performed By: #### C BC ####[facility] Dkupxaeadv5[address] [place], [place] [address]Dr. Airam Tripathi Erythrocyte distribution width (RBC) [Ratio] 15.0 % Normal 11.0-15.0 [facility] Comment on above: Performed By: #### C BC ####[facility] Cxlbgjxwme8654[address] [place], [place] [address]Dr. Airam Tripathi Hematocrit (Bld) [Volume fraction] 30.9 % Critically low 36.0-48.0 [facility] Comment on above: Performed By: #### C BC ####[facility] Divaanmjyw2708[address] [place], [place] [address]Dr. Airam Tripathi Hemoglobin (Bld) [Mass/Vol] 10.1 g/dL Critically low 12.0-16.0 [facility] Comment on above: Result Comment: BIJU ENT RECIEVED 2 UNITS PRBC'S Performed By: #### C BC ####[facility] Ztxyzdcgrz3[address] [place], [place] [address]Dr. Airam Tripathi IG # 0.03 10e3/ul Normal 0.00-0.03 [facility] Comment on above: Performed By: #### C BC ####[facility] Obgbdvksdt[address] [place], [place] [address]Dr. Airam Tripathi IG % 0.4 % Normal 0.0-0.5 [facility] Comment on above: Performed By: #### C BC ####[facility] Xsqwvoegod8615[address] [place], [place] [address]Dr. Airam Tripathi LYMPH # 1.1 103/ul Critically low 1.2-3.8 [facility] Comment on above: Performed By: #### C BC ####[facility] Vaazzezlhz6167 [place] [address]Dr. Airam Deuce Lymphocytes/100 WBC (Bld) 14.4 % Critically low 20.5-60.0 [facility] Comment on above: Performed By: #### C BC ####[facility] Jexriwbbjf7933 [place] [address]Dr. Selenaneil Tripathi MANUAL DIFF REQ NO Normal [facility] Comment on above: Performed By: #### C BC ####[facility] Bmshjusmku2497 [place] [address]Dr. Airam Deuce MCH (RBC) [Entitic mass] 28.9 pg Normal 26.7-34.0 [facility] Comment on above: Performed By: #### C BC ####[facility] Gzccrlijtv4[address] [place], [place] [address]Dr. Airam Deuce MCHC (RBC) [Mass/Vol] 32.7 g/dL Normal 29.9-35.2 [facility] Comment on above: Performed By: #### C BC ####[facility] Bhqdhrfeuv8[address] [place], [place] [address]Dr. Selenaneil Tripathi MCV (RBC) [Entitic vol] 88.3 fL Normal 81.0-99.0 [facility] Comment on above: Performed By: #### C BC ####[facility] Tqrnxxjqnh88[address] [place], [place] [address]Dr. Airam Tripathi MONO # 0.6 103/ul Normal 0.3-0.8 [facility] Comment on above: Performed By: #### C BC ####[facility] Hsmtbrgqyq394[address] [place], [place] [address]Dr. Airam Tripathi Monocytes/100 WBC (Bld) 7.8 % Normal 1.7-12.0 [facility] Comment on above: Performed By: #### C BC ####[facility] Kzrkqfdsqf9[address] [place], [place] [address]Dr. Airam Tripathi NEUT # 5.5 103/ul Normal 1.4-6.5 [facility] Comment on above: Performed By: #### C BC ####[facility] Oqrqsdgycp1720[address] [place], [place] [address]Dr. Airam Tripathi Neutrophils/100 WBC (Bld) 74.0 % Normal 43.0-75.0 [facility] Comment on above: Performed By: #### C BC ####[facility] Ypkciianmd9839 [place] [address]Dr. Airam Tripathi Platelet mean volume (Bld) [Entitic vol] 9.2 fL Critically low 9.5-13.5 [facility] Comment on above: Performed By: #### C BC ####[facility] Vcpvokdqvs7827 [place] [address]Dr. Airam Tripathi PLT 275 103/ul Normal 150-450 [facility] Comment on above: Performed By: #### C BC ####[facility] Qktdwbgpjq1410 [place] [address]Dr. Airam Tripathi RBC 3.50 106/ul Critically low 4.20-5.40 [facility] Comment on above: Performed By: #### C BC ####[facility] Aelkpjvwbm3829 [place] [address]Dr. Airam Tripathi WBC 7.4 103/ul Normal 4.0-11.0 [facility] Comment on above: Performed By: #### C BC ####[facility] Hhpfuspdxo15[address] [place], [place] [address]Dr. Airam Tripathi BASO # 0.0 103/ul Normal 0.0-0.1 [facility] Comment on above: Performed By: #### C BC ####[facility] Qncrfyfglp5393 [place] [address]Dr. Airam Tripathi Basophils/100 WBC (Bld) 0.4 % Normal 0.2-2.0 [facility] Comment on above: Performed By: #### C BC ####[facility] Twcfghxeyk9312[address] [place], [place] [address]Dr. Airam Deuce EO # 0.2 103/ul Normal 0.0-0.7 [facility] Comment on above: Performed By: #### C BC ####[facility] Hxdxnzrwoi3901[address] [place], [place] [address]Dr. Airam Tripathi Eosinophils/100 WBC (Bld) 4.5 % Normal 0.9-7.0 [facility] Comment on above: Performed By: #### C BC ####[facility] Hofiztgjhg4479[address] [place], [place] [address]Dr. Airam Tripathi Erythrocyte distribution width (RBC) [Ratio] 15.1 % Critically high 11.0-15.0 [facility] Comment on above: Performed By: #### C BC ####[facility] Bfejsfwbjr0220[address] [place], [place] [address]Dr. Airam Tripathi Hematocrit (Bld) [Volume fraction] 23.0 % Critically low 36.0-48.0 [facility] Comment on above: Performed By: #### C BC ####[facility] Lbehspizmp38[address] [place], [place] [address]Dr. Airam Tripathi Hemoglobin (Bld) [Mass/Vol] 7.2 g/dL Critically low 12.0-16.0 [facility] Comment on above: Performed By: #### C BC ####[facility] Bbqpsetuha4634[address] [place], [place] [address]Dr. Airam Tripathi IG # 0.02 10e3/ul Normal 0.00-0.03 [facility] Comment on above: Performed By: #### C BC ####[facility] Agummfpckk2139[address] [place], [place] [address]Dr. Airam Tripathi IG % 0.4 % Normal 0.0-0.5 [facility] Comment on above: Performed By: #### C BC ####[facility] Vckpuowzbr88[address] [place], [place] [address]Dr. Airam Tripathi LYMPH # 1.0 103/ul Critically low 1.2-3.8 [facility] Comment on above: Performed By: #### C BC ####[facility] Vficszabfg5416[address] [place], [place] [address]Dr. Airam Tripathi Lymphocytes/100 WBC (Bld) 22.5 % Normal 20.5-60.0 [facility] Comment on above: Performed By: #### C BC ####[facility] Zglqntucnq18[address] [place], [place] [address]Dr. Airam Tripathi MANUAL DIFF REQ NO Normal [facility] Comment on above: Performed By: #### C BC ####[facility] Nvswiweats5689 [place] [address]Dr. Airam Deuce MCH (RBC) [Entitic mass] 28.3 pg Normal 26.7-34.0 [facility] Comment on above: Performed By: #### C BC ####[facility] Wazzjgylno45[address] [place], [place] [address]Dr. Airam Deuce MCHC (RBC) [Mass/Vol] 31.3 g/dL Normal 29.9-35.2 [facility] Comment on above: Performed By: #### C BC ####[facility] Xfqbcbkjlu[address] [place], [place] [address]Dr. Airam Tripathi MCV (RBC) [Entitic vol] 90.6 fL Normal 81.0-99.0 [facility] Comment on above: Performed By: #### C BC ####[facility] Eddqpgllbs16[address] [place], [place] [address]Dr. Airam Tripathi MONO # 0.5 103/ul Normal 0.3-0.8 [facility] Comment on above: Performed By: #### C BC ####[facility] Ucosxhgpvz36[address] [place], [place] [address]Dr. Airam Tripathi Monocytes/100 WBC (Bld) 9.7 % Normal 1.7-12.0 [facility] Comment on above: Performed By: #### C BC ####[facility] [address]okwgkxuej[address] [place], [place] [address]DrKianna Tripathi NEUT # 2.9 103/ul Normal 1.4-6.5 [facility] Comment on above: Performed By: #### C BC ####[facility] [facility] [address]mbafxcuiy[address] [place], [place] [address]DrKianna Tripathi Neutrophils/100 WBC (Bld) 62.5 % Normal 43.0-75.0 [facility] Comment on above: Performed By: #### C BC ####[facility] Bujvutxljq[address] [place], [place] [address]Dr. Airam Tripathi Platelet mean volume (Bld) [Entitic vol] 8.9 fL Critically low 9.5-13.5 [facility] Comment on above: Performed By: #### C BC ####[facility] Ygdptxeqqe[address] [place] [address]Dr. Airam Tripathi PLT 210 103/ul Normal 150-450 [facility] Comment on above: Performed By: #### C BC ####[facility] Untormatlo[address] [place] [address]Dr. Airam Deuce RBC 2.54 106/ul Critically low 4.20-5.40 [facility] Comment on above: Performed By: #### C BC ####[facility] Ijwsbxkuun[address] [place], [place] [address]Dr. Airam Deuce WBC 4.6 103/ul Normal 4.0-11.0 [facility] Comment on above: Performed By: #### C BC ####[facility] Xufxanmgkc[address] [place], [place] [address]DrKianna Airam Deuce OSMOLALITYon 10-06-2022 Osmolality [Osmolality] 279 mosm/kg Normal 275-295 [facility] Comment on above: Performed By: #### O SMO ####[facility] Celbtinerj[address] [place], [place] [address]DrKianna Trpiathi POINT OF CARE GLUCOSEon 09-24 Glucose [Mass/Vol] 72 mg/dL Critically low 74-106 [facility] Comment on above: Performed By: #### P OCGLUC ####[facility] Zciolynnme[address] [place] [address]DrKianna Tripathi Glucose [Mass/Vol] 102 mg/dL Normal 74-106 [facility] Comment on above: Performed By: #### P OCGLUC ####[facility] Jmkjjmohgp[address] [place], [place] [address]DrKianna Tripathi Glucose [Mass/Vol] 165 mg/dL Critically high 74-106 T [facility] Comment on above: Performed By: #### P OCGLUC ####[facility] Tufqhunynq[address] [place], [place] [address]Dr. Airam Tripathi PROF 14(COMP METB)on 023 Albumin [Mass/Vol] 2.6 g/dL Critically low 3.4-5.0 [facility] Comment on above: Performed By: #### C MP ####[facility] Wuamrkhzqb7[address] [place] [address]Dr. Airam Tripathi Albumin/Globulin [Mass ratio] 0.9 {ratio} Normal [facility] Comment on above: Performed By: #### C MP ####[facility] Rguibtjqlk[address] [place], [place] [address]Dr. Airam Tripathi ALP [Catalytic activity/Vol] 107 U/L Normal 46-116 [facility] Comment on above: Performed By: #### C MP ####[facility] Vfujdlbgkh1824[address] [place], [place] [address]Dr. Airam Tripathi ALT [Catalytic activity/Vol] 22 U/L Normal 14-59 [facility] Comment on above: Performed By: #### C MP ####[facility] Twrkvsescq5[address] [place], [place] [address]Dr. Airam Tripathi Anion gap [Moles/Vol] 10.0 mmol/L Normal Th [facility] Comment on above: Performed By: #### C MP ####[facility] Wkplomdkkh77[address] [place], [place] [address]Dr. Airam Tripathi AST [Catalytic activity/Vol] 19 U/L Normal 15-37 [facility] Comment on above: Performed By: #### C MP ####[facility] Tscxlciiyu6912[address] [place], [place] [address]Dr. Airam Tripathi Bilirubin [Mass/Vol] 0.2 mg/dL Normal 0.2-1.0 [facility] Comment on above: Performed By: #### C MP ####[facility] Edugruiwtp3725[address] [place], [place] [address]Dr. Airam Tripathi Calcium [Mass/Vol] 8.1 mg/dL Critically low 8.5-10.1 [facility] Comment on above: Performed By: #### C MP ####[facility] Bgvjaaoxxs[address] [place], [place] [address]Dr. Airam Deuce Chloride [Moles/Vol] 100 mmol/L Normal 98-107 [facility] Comment on above: Performed By: #### C MP ####[facility] Lodfypakev[address] [place] [address]Dr. Airam Tripathi CO2 [Moles/Vol] 26.2 mmol/L Normal 21.0-32.0 [facility] Comment on above: Performed By: #### C MP ####[facility] Qlpzutknou8[address] [place], [place] [address]Dr. Airam Deuce Creatinine [Mass/Vol] 1.90 mg/dL Critically high 0.55-1.02 [facility] Comment on above: Performed By: #### C MP ####[facility] Hlyofpnrff55[address] [place], [place] [address]Dr. Airam Deuce EGFR-AF CITIZEN OF [place] 33 mL/min/1.73m2 Critically low >=60 [facility] Comment on above: Performed By: #### C MP ####[facility] Plkxwzxeeh[address] [place], [place] [address]Dr. Airam Deuce EGFR-NON AF CITIZEN OF [place] 27 mL/min/1.73m2 Critically low >=60 [facility] Comment on above: Performed By: #### C MP ####[facility] Mpspjnlbpn20[address] [place], [place] [address]Dr. Airam Deuce Globulin (S) [Mass/Vol] 2.8 g/dL Normal [facility] Comment on above: Performed By: #### C MP ####[facility] Csnahabhdq9316[address] [place], [place] [address]Dr. Airam Deuce Glucose [Mass/Vol] 115 mg/dL Critically high 74-106 T [facility] Comment on above: Performed By: #### C MP ####[facility] Bnccuohttd4260[address] [place], [place] [address]Dr. Airam Deuce Potassium [Moles/Vol] 5.2 mmol/L Critically high 3.5-5.1 [facility] Comment on above: Performed By: #### C MP ####[facility] Zayhcbodzf7[address] [place], [place] [address]Dr. Airam Tripathi Protein [Mass/Vol] 5.4 g/dL Critically low 6.4-8.2 Th [facility] Comment on above: Performed By: #### C MP ####[facility] Oyroztilrv7217[address] [place], [place] [address]Dr. Airam Tripathi Sodium [Moles/Vol] 131 mmol/L Critically low 136-145 Th [facility] Comment on above: Performed By: #### C MP ####[facility] Mzopyamiyu2595[address] [place], [place] [address]Dr. Airam Tripathi Urea nitrogen [Mass/Vol] 41.0 mg/dL Critically high 7.0-18.0 [facility] Comment on above: Performed By: #### C MP ####[facility] Rjdzpghdlq7869[address] [place], [place] [address]Dr. Airam Tripathi Urea nitrogen/Creatinine [Mass ratio] 21.6 mg/mg Normal [facility] Comment on above: Performed By: #### C MP ####[facility] Hcbkucuxml8230[address] [place], [place] [address]Dr. Airam Tripathi TYPE AND SCREENon 10-06-2022 TYPE AND SCREEN Negative Normal [facility] Comment on above: Performed By: #### T NS ####[facility] Sczfhwqhac8[address] [place], [place] [address]Dr. Airam Tripathi CBC AUTO DIFFon 10-05-2022 BASO # 0.0 103/ul Normal 0.0-0.1 [facility] Comment on above: Performed By: #### C BC ####[facility] Rqjjoznglt3830[address] [place], [place] [address]Dr. Airam Deuce Basophils/100 WBC (Bld) 0.5 % Normal 0.2-2.0 [facility] Comment on above: Performed By: #### C BC ####[facility] Fsrcdnouor4275[address] [place], [place] [address]Dr. Airam Deuce EO # 0.2 103/ul Normal 0.0-0.7 [facility] Comment on above: Performed By: #### C BC ####[facility] [address]htnxmhh[address] [place] [address]Dr. Airam Tripathi Eosinophils/100 WBC (Bld) 3.2 % Normal 0.9-7.0 [facility] Comment on above: Performed By: #### C BC ####[facility] Amwhzspsug25[address] [place], [place] [address]Dr. Airam Tripathi Erythrocyte distribution width (RBC) [Ratio] 15.2 % Critically high 11.0-15.0 [facility] Comment on above: Performed By: #### C BC ####[facility] Jhilxzbjbg[address] [place], [place] [address]Dr. Airam Tripathi Hematocrit (Bld) [Volume fraction] 24.7 % Critically low 36.0-48.0 [facility] Comment on above: Performed By: #### C BC ####[facility] Ghykdlgggy7[address] [place], [place] [address]Dr. Airam Tripathi Hemoglobin (Bld) [Mass/Vol] 7.6 g/dL Critically low 12.0-16.0 [facility] Comment on above: Performed By: #### C BC ####[facility] Pnjvfxntwj[address] [place], [place] [address]Dr. Airam Tripathi IG # 0.02 10e3/ul Normal 0.00-0.03 [facility] Comment on above: Performed By: #### C BC ####[facility] Xcukyononi7[address] [place], [place] [address]Dr. Airam Tripathi IG % 0.3 % Normal 0.0-0.5 [facility] Comment on above: Performed By: #### C BC ####[facility] Bivqfvhjoi[address] [place], [place] [address]Dr. Airam Tripathi LYMPH # 1.1 103/ul Critically low 1.2-3.8 [facility] Comment on above: Performed By: #### C BC ####[facility] Efwonprjhr[address] [place], [place] [address]Dr. Airam Tripathi Lymphocytes/100 WBC (Bld) 18.4 % Critically low 20.5-60.0 [facility] Comment on above: Performed By: #### C BC ####[facility] [address]ajun[address] [place] [phone]. Airam Tripathi MANUAL DIFF REQ NO Normal [facility] Comment on above: Performed By: #### C BC ####[facility] [address]pmzettcdj18[address] [place] [phone]. Airam Tripathi MCH (RBC) [Entitic mass] 28.5 pg Normal 26.7-34.0 [facility] Comment on above: Performed By: #### C BC ####[facility] Vizveloxjf[address] [place] [address]Dr. Airam Tripathi MCHC (RBC) [Mass/Vol] 30.8 g/dL Normal 29.9-35.2 [facility] Comment on above: Performed By: #### C BC ####[facility] Imwwtotqnb48[address] [place] [address]Dr. Airam Tripathi MCV (RBC) [Entitic vol] 92.5 fL Normal 81.0-99.0 [facility] Comment on above: Performed By: #### C BC ####[facility] Dqwtdtaqvi47[address] [place] [address]Dr. Airam Deuce MONO # 0.6 103/ul Normal 0.3-0.8 [facility] Comment on above: Performed By: #### C BC ####[facility] Gehmtmcscn[address] [place] [address]Dr. Airam Deuce Monocytes/100 WBC (Bld) 10.0 % Normal 1.7-12.0 [facility] Comment on above: Performed By: #### C BC ####[facility] Zibkrcfgws[address] [place] [address]Dr. Airam Tripathi NEUT # 4.0 103/ul Normal 1.4-6.5 [facility] Comment on above: Performed By: #### C BC ####[facility] Uzcchuagxp[address] [place], [place] [address]Dr. Airam Deuce Neutrophils/100 WBC (Bld) 67.6 % Normal 43.0-75.0 [facility] Comment on above: Performed By: #### C BC ####[facility] [address] [place], [place] [address]Nb. Airam Tripathi Platelet mean volume (Bld) [Entitic vol] 8.8 fL Critically low 9.5-13.5 [facility] Comment on above: Performed By: #### C BC ####[facility] Imfhorofdo[address] [place], [place] [address]Of. Airam Tripathi PLT 226 103/ul Normal 150-450 [facility] Comment on above: Performed By: #### C BC ####[facility] Prghpsffwa4302 [place], [place] [address]Sg. Airam Tripathi RBC 2.67 106/ul Critically low 4.20-5.40 [facility] Comment on above: Performed By: #### C BC ####[facility] Asfowgbiah4601 [place], [place] [address]Ia. Airam Tripathi WBC 5.9 103/ul Normal 4.0-11.0 [facility] Comment on above: Performed By: #### C BC ####[facility] Bfwkuxggly9037 [place], [place] [address]Fb. Airam Tripathi Covid-19 PCR ([facility])on 09-24 SARS-CoV-2 (COVID-19) RNA MIKE+probe Ql (Unsp spec) Not detected Normal NOT DETECTED [facility] Comment on above: Result Comment: When [...] for this test is supported by the [place] of Health and Human Service's declaration that [...] be used). Performed By: #### C VDTBH ####[facility] B[address]ufwthc[address] [place] [address]Dr. Airam Tripathi MAGNESIUMon 10-05-2022 Magnesium [Mass/Vol] 1.7 mg/dL Critically low 1.8-2.4 [facility] Comment on above: Performed By: #### M Yumiko, CMP ####[facility] Jupeptnoek[address] [place], [place] [address]Dr. Airam Tripathi POINT OF CARE GLUCOSEon 09-24 Glucose [Mass/Vol] 92 mg/dL Normal 74-106 [facility] Comment on above: Performed By: #### P OCGLUC ####[facility] Cqfcjcqwlo[address] [place], [place] [address]Dr. Airam Tripathi PROF 14(COMP METB)on 023 Albumin [Mass/Vol] 2.9 g/dL Critically low 3.4-5.0 [facility] Comment on above: Performed By: #### Nadya Calderon, CMP ####[facility] Mgflrcboyg16[address] [place], [place] [address]Dr. Airam Tripathi Albumin/Globulin [Mass ratio] 0.9 {ratio} Normal [facility] Comment on above: Performed By: #### Nadya Calderon, CMP ####[facility] Zoannufexm[address] [place], [place] [address]Dr. Airam Tripathi ALP [Catalytic activity/Vol] 122 U/L Critically high 46-116 [facility] Comment on above: Performed By: #### Nadya Calderon, CMP ####[facility] Xyhcbisuvy[address] [place], [place] [address]Dr. Airam Tripathi ALT [Catalytic activity/Vol] 24 U/L Normal 14-59 [facility] Comment on above: Performed By: #### Nadya Calderon, CMP ####[facility] Pjvblfunvj8[address] [place], [place] [address]Dr. Airam Tripathi Anion gap [Moles/Vol] 13.1 mmol/L Normal [facility] Comment on above: Performed By: #### Nadya Calderon, CMP ####[facility] Gmwdtytgoa00[address] [place] [phone]. Airam Tripathi AST [Catalytic activity/Vol] 21 U/L Normal 15-37 [facility] Comment on above: Performed By: #### M G, CMP ####[facility] Zxtmrislac7[address] [place], [place] [address]Dr. Airam Tripathi Bilirubin [Mass/Vol] 0.2 mg/dL Normal 0.2-1.0 [facility] Comment on above: Performed By: #### M G, CMP ####[facility] Jakpjdkbry037[address] [place], [place] [address]Dr. Airam Tripathi Calcium [Mass/Vol] 8.4 mg/dL Critically low 8.5-10.1 [facility] Comment on above: Performed By: #### M Yumiko, CMP ####[facility] Ccfvylcbvg18[address] [place], [place] [address]Dr. Airam Tripathi Chloride [Moles/Vol] 102 mmol/L Normal 98-107 [facility] Comment on above: Performed By: #### M G, CMP ####[facility] Zylrrzjgjv[address] [place], [place] [address]Dr. Airam Tripathi CO2 [Moles/Vol] 23.2 mmol/L Normal 21.0-32.0 [facility] Comment on above: Performed By: #### M G, CMP ####[facility] Oiajqdhfah[address] [place], [place] [address]Dr. Airam Tripathi Creatinine [Mass/Vol] 1.96 mg/dL Critically high 0.55-1.02 [facility] Comment on above: Performed By: #### M G, CMP ####[facility] Iuajtfulxm[address] [place], [place] [address]Dr. Airam Tripathi EGFR-AF [place]IZ[place] OF [place] 32 mL/min/1.73m2 Critically low >=60 [facility] Comment on above: Performed By: #### M G, CMP ####[facility] Klnmarnhio1264[address] [place], [place] [address]Dr. Airam Tripathi EGFR-NON AF CITIZEN OF [place] 26 mL/min/1.73m2 Critically low >=60 [facility] Comment on above: Performed By: #### M G, CMP ####[facility] Mwhikauvmg4[address] [place] [address]Dr. Airam Tripathi Globulin (S) [Mass/Vol] 3.2 g/dL Normal [facility] Comment on above: Performed By: #### M G, CMP ####[facility] Ikmwmqfgpm242[address] [place], [place] [address]Dr. Selenaneil Tripathi Glucose [Mass/Vol] 68 mg/dL Critically low 74-106 Th [facility] Comment on above: Performed By: #### M Yumiko, CMP ####[facility] Wchifrtoew[address] [place], [place] [address]Dr. Selenaneil Tripathi Potassium [Moles/Vol] 5.3 mmol/L Critically high 3.5-5.1 [facility] Comment on above: Performed By: #### Nadya Calderon, CMP ####[facility] Xuywnxlwgx[address] [place], [place] [address]Dr. Airam Tripathi Protein [Mass/Vol] 6.1 g/dL Critically low 6.4-8.2 Th [facility] Comment on above: Performed By: #### Nadya Calderon, CMP ####[facility] Bjxflwefdi5501[address] [place], [place] [address]Dr. Airam Tripathi Sodium [Moles/Vol] 133 mmol/L Critically low 136-145 [facility] Comment on above: Performed By: #### Nadya Calderon, CMP ####[facility] Mexvlgpgvp[address] [place], [place] [address]Dr. Airam Tripathi Urea nitrogen [Mass/Vol] 39.0 mg/dL Critically high 7.0-18.0 [facility] Comment on above: Performed By: #### Nadya Calderon, CMP ####[facility] Dkmnqkugin[address] [place], [place] [address]Dr. Airam Tripathi Urea nitrogen/Creatinine [Mass ratio] 19.9 mg/mg Normal [facility] Comment on above: Performed By: #### Nadya Calderon, CMP ####[facility] Lcayseqzob[address] [place], [place] [address]Dr. Airam Tripathi SODIUM RANDOM URINEon 2022 Sodium (U) [Moles/Vol] 37 mmol/L Normal 30-90 Th e [facility] Comment on above: Performed By: #### N AU ####[facility] Qeraxrbttr[address] [place], [place] [address]Dr. Airam Tripathi UA RANDOM W/MICROSCOPICon BACTERIA TRACE Abnormal NONE SEEN [facility] Comment on above: Performed By: #### U AMIC ####[facility] [address]oozdkdna02[address] [place], [place] [address]Dr. Airam Tripathi Bilirubin Ql (U) Negative Normal NEGATIVE [facility] Comment on above: Performed By: #### U AMIC ####[facility] Nuyfumbvmm7557[address] [place], [place] [address]Dr. Airam Tripathi CAST SEEN Abnormal NONE SEEN [facility] Comment on above: Performed By: #### U AMIC ####[facility] Tstrsyseyu[address] [place], [place] [address]Dr. Airam Tripathi Clarity (U) CLEAR Normal CLEAR [facility] Comment on above: Performed By: #### U AMIC ####[facility] Fmcvtbljua2839[address] [place], [place] [address]Dr. Airam Tripathi Color (U) YELLOW Normal YELLOW [facility] Comment on above: Performed By: #### U AMIC ####[facility] Swlvglurur6[address] [place], [place] [address]Dr. Airam Tripathi Crystals LM Nom (Urine sed) NONE SEEN Normal NONE SEEN [facility] Comment on above: Performed By: #### U AMIC ####[facility] Egbtjpkulw4080[address] [place], [place] [address]Dr. Airam Tripathi Epithelial cells LM Ql (Urine sed) RARE Normal NONE SEEN /RARE [facility] Comment on above: Performed By: #### U AMIC ####[facility] Wefgdvjdfz[address] [place], [place] [address]Dr. Airam Tripathi Glucose Ql (U) Negative Normal NEGATIVE [facility] Comment on above: Performed By: #### U AMIC ####[facility] Birqvhlbhw[address] [place], [place] [address]Dr. Airam Tripathi Hemoglobin Ql (U) Negative Normal NEGATIVE [facility] Comment on above: Performed By: #### U AMIC ####[facility] Ztpihojvar[address] [place] [address]Dr. Airam Tripathi HYALINE CAST RARE Normal [facility] Comment on above: Performed By: #### U AMIC ####[facility] Tqmylfmhil[address] [place] [address]Dr. Airam Tripathi Ketones Ql (U) TRACE Abnormal NEGATIVE [facility] Comment on above: Performed By: #### U AMIC ####[facility] Fupspvlgpu38[address] [place] [address]Dr. Airam Tripathi LEUKOCYTES Negative Normal NEGATIVE [facility] Comment on above: Performed By: #### U AMIC ####[facility] L[address]mqtlgqid4325[address] [place], [place] [address]Dr. Airam Tripathi MUCOUS NONE SEEN Normal NONE SEEN [facility] Comment on above: Performed By: #### U AMIC ####[facility] Omprzsnfed3940[address] [place], [place] [address]Dr. Airam Tripathi Nitrite Ql (U) Negative Normal NEGATIVE [facility] Comment on above: Performed By: #### U AMIC ####[facility] Wyryosldgz136[address] [place], [place] [address]Dr. Airam Tripathi pH (U) 5.0 [pH] Normal 5-9 [facility] Comment on above: Performed By: #### U AMIC ####[facility] Cmtvdddcmh[address] [place], [place] [address]Dr. Airam Tripathi RBC 0-2 Normal 0-2 [facility] Comment on above: Performed By: #### U AMIC ####[facility] Rdezenqijl7[address] [place], [place] [address]Dr. Airam Tripathi SPEC GRAVITY 1.015 Normal 1.005-<=1.02 5 [facility] Comment on above: Performed By: #### U AMIC ####[facility] Uieutjpjsy6239[address] [place], [place] [address]Dr. Airam Tripathi UA PROTEIN Negative Normal NEGATIVE/ TRACE [facility] Comment on above: Performed By: #### U AMIC ####[facility] W[address]wf[address]ndc68[address] [place] [phone]. Airam Deuce Urobilinogen Qn (U) 0.2 {Ligia'U}/dL Normal 0.2 - 1. 0 [facility] Comment on above: Performed By: #### U AMIC ####[facility] T[address]ecslaj[address] [place] [phone]. Airam Tripathi WBC NONE SEEN Normal NONE SEEN [facility] Comment on above: Performed By: #### U AMIC ####[facility] Xfasgorpiv82[address] [place] [phone]. Airam Tripathi CBC AUTO DIFFon 10-04-2022 BASO # 0.0 103/ul Normal 0.0-0.1 [facility] Comment on above: Performed By: #### C BC ####[facility] Uoqcchuvcd8[address] [place], [place] [address]Dr. Airam Tripathi Basophils/100 WBC (Bld) 0.3 % Normal 0.2-2.0 [facility] Comment on above: Performed By: #### C BC ####[facility] Qchiwwpwes4128[address] [place], [place] [address]Dr. Airam Tripathi EO # 0.2 103/ul Normal 0.0-0.7 [facility] Comment on above: Performed By: #### C BC ####[facility] Kcxobtrmai7086[address] [place], [place] [address]Dr. Airam Tripathi Eosinophils/100 WBC (Bld) 3.2 % Normal 0.9-7.0 [facility] Comment on above: Performed By: #### C BC ####[facility] Xdmhleliho[address] [place], [place] [address]Dr. Airam Tripathi Erythrocyte distribution width (RBC) [Ratio] 15.1 % Critically high 11.0-15.0 [facility] Comment on above: Performed By: #### C BC ####[facility] Jskbuypggo[address] [place], [place] [address]Dr. Airam Tripathi Hematocrit (Bld) [Volume fraction] 27.6 % Critically low 36.0-48.0 [facility] Comment on above: Performed By: #### C BC ####[facility] W[address]ynrmjefg20[address] [place] [address]Dr. Airam Tripathi Hemoglobin (Bld) [Mass/Vol] 8.7 g/dL Critically low 12.0-16.0 [facility] Comment on above: Performed By: #### C BC ####[facility] Dddzwonnez[address] [place], [place] [address]Dr. Airam Tripathi IG # 0.03 10e3/ul Normal 0.00-0.03 [facility] Comment on above: Performed By: #### C BC ####[facility] [address] [place], [place] [address]Dr. Airam Deuce IG % 0.4 % Normal 0.0-0.5 [facility] Comment on above: Performed By: #### C BC ####[facility] Pgrdjupuhk[address] [place], [place] [address]Dr. Airam Tripathi LYMPH # 1.2 103/ul Normal 1.2-3.8 [facility] Comment on above: Performed By: #### C BC ####[facility] Fenmyakcqu6625[address] [place], [place] [address]Dr. Selenaneil Tripathi Lymphocytes/100 WBC (Bld) 16.4 % Critically low 20.5-60.0 [facility] Comment on above: Performed By: #### C BC ####[facility] Ihlkbuhzpl[address] [place], [place] [address]Dr. Airam Tripathi MANUAL DIFF REQ NO Normal [facility] Comment on above: Performed By: #### C BC ####[facility] Waplxzeanz8670[address] [place], [place] [address]Dr. Airam Tripathi MCH (RBC) [Entitic mass] 28.5 pg Normal 26.7-34.0 [facility] Comment on above: Performed By: #### C BC ####[facility] Lzlcgchjho5[address] [place], [place] [address]Dr. Airam Tripathi MCHC (RBC) [Mass/Vol] 31.5 g/dL Normal 29.9-35.2 [facility] Comment on above: Performed By: #### C BC ####[facility] Bdiukazjas040[address] [place] [address]Dr. Airam Tripathi MCV (RBC) [Entitic vol] 90.5 fL Normal 81.0-99.0 [facility] Comment on above: Performed By: #### C BC ####[facility] Hfmoeirlug29[address] [place], [place] [address]Dr. Airam Tripathi MONO # 0.5 103/ul Normal 0.3-0.8 [facility] Comment on above: Performed By: #### C BC ####[facility] Yolqywqwdl18[address] [place], [place] [address]Dr. Airam Deuce Monocytes/100 WBC (Bld) 7.3 % Normal 1.7-12.0 [facility] Comment on above: Performed By: #### C BC ####[facility] Fbwyzhuzjy05[address] [place], [place] [address]Dr. Airam Tripathi NEUT # 5.4 103/ul Normal 1.4-6.5 [facility] Comment on above: Performed By: #### C BC ####[facility] Hoewxzwqrp9278[address] [place], [place] [address]Dr. Selenaneil Tripathi Neutrophils/100 WBC (Bld) 72.4 % Normal 43.0-75.0 [facility] Comment on above: Performed By: #### C BC ####[facility] Iwkorontmf0194[address] [place], [place] [address]Dr. Airam Decue Platelet mean volume (Bld) [Entitic vol] 9.1 fL Critically low 9.5-13.5 [facility] Comment on above: Performed By: #### C BC ####[facility] Ibkpduvanj5622[address] [place], [place] [address]Dr. Selenaneil Tripathi PLT 304 103/ul Normal 150-450 [facility] Comment on above: Performed By: #### C BC ####[facility] Aezbfzmrmz186[address] [place], [place] [address]Dr. Airam Tripathi RBC 3.05 106/ul Critically low 4.20-5.40 [facility] Comment on above: Performed By: #### C BC ####[facility] Jciwjfqrpp8256 [place] [address]Dr. Airam Tripathi WBC 7.4 103/ul Normal 4.0-11.0 [facility] Comment on above: Performed By: #### C BC ####[facility] Dasnuvqijp8504 [place] [address]Dr. Airam Tripathi PROF 14(COMP METB)on 023 Albumin [Mass/Vol] 3.3 g/dL Critically low 3.4-5.0 [facility] Comment on above: Performed By: #### C MP ####[facility] Zubywoavic8169 [place] [address]Dr. Airam Tripathi Albumin/Globulin [Mass ratio] 0.9 {ratio} Normal [facility] Comment on above: Performed By: #### C MP ####[facility] Drtmunswgp2612 [place] [address]Dr. Airam Tripathi ALP [Catalytic activity/Vol] 127 U/L Critically high 46-116 [facility] Comment on above: Performed By: #### C MP ####[facility] Zjpdrxktfs8220[address] [place], [place] [address]Dr. Airam Tripathi ALT [Catalytic activity/Vol] 29 U/L Normal 14-59 [facility] Comment on above: Performed By: #### C MP ####[facility] Rivngqewij7736 [place] [address]Dr. Airam Tripathi Anion gap [Moles/Vol] 14.6 mmol/L Normal Th [facility] Comment on above: Performed By: #### C MP ####[facility] Rzrrwcllfb5917 [place] [address]Dr. Airam Tripathi AST [Catalytic activity/Vol] 28 U/L Normal 15-37 [facility] Comment on above: Performed By: #### C MP ####[facility] Kmbbyvujza8800 [place] [address]Dr. Airam Tripathi Bilirubin [Mass/Vol] 0.3 mg/dL Normal 0.2-1.0 [facility] Comment on above: Performed By: #### C MP ####[facility] Aczljnfthi7217 [place] [phone]. Airam Tripathi Calcium [Mass/Vol] 8.9 mg/dL Normal 8.5-10.1 [facility] Comment on above: Performed By: #### C MP ####[facility] Ufdeajzinx6471 [place] [phone]. Airam Tripathi Chloride [Moles/Vol] 99 mmol/L Normal 98-107 [facility] Comment on above: Performed By: #### C MP ####[facility] Qlhynqpsgx0433 [place] [phone]. Airam Tripathi CO2 [Moles/Vol] 25.1 mmol/L Normal 21.0-32.0 [facility] Comment on above: Performed By: #### C MP ####[facility] Rjhwdbougn5196 [place] [address]Dr. Airam Tripathi Creatinine [Mass/Vol] 1.42 mg/dL Critically high 0.55-1.02 [facility] Comment on above: Performed By: #### C MP ####[facility] Vbgvrdrkrj1186 [place] [address]Dr. Airam Tripathi EGFR-AF CITIZEN OF [place] 46 mL/min/1.73m2 Critically low >=60 [facility] Comment on above: Performed By: #### C MP ####[facility] Mopjdazxeb6261 [place] [address]Dr. Airam Tripathi EGFR-NON AF CITIZEN OF [place] 38 mL/min/1.73m2 Critically low >=60 [facility] Comment on above: Performed By: #### C MP ####[facility] Syxftprxse8444 [place] [phone]. Airam Tripathi Globulin (S) [Mass/Vol] 3.6 g/dL Normal [facility] Comment on above: Performed By: #### C MP ####[facility] Cfaanyohvp4367 [place] [address]Dr. Airam Deuce Glucose [Mass/Vol] 79 mg/dL Normal 74-106 [facility] Comment on above: Performed By: #### C MP ####[facility] Amzfdoswys7518 [place] [address]Dr. Airam Tripathi Potassium [Moles/Vol] 5.7 mmol/L Critically high 3.5-5.1 [facility] Comment on above: Performed By: #### C MP ####[facility] Fnfrvfpesx6315 [place] [address]DrKianna Tripathi Protein [Mass/Vol] 6.9 g/dL Normal 6.4-8.2 [facility] Comment on above: Performed By: #### C MP ####[facility] Mnzpryreia8369[address] [place], [place] [address]Dr. Airam Tripathi Sodium [Moles/Vol] 133 mmol/L Critically low 136-145 Th [facility] Comment on above: Performed By: #### C MP ####[facility] Gnlqlorsxc539[address] [place], [place] [address]DrKianna Tripathi Urea nitrogen [Mass/Vol] 35.0 mg/dL Critically high 7.0-18.0 [facility] Comment on above: Performed By: #### C MP ####[facility] Azplnlwogc8028[address] [place], [place] [address]Dr. Airam Tripathi Urea nitrogen/Creatinine [Mass ratio] 24.6 mg/mg Normal [facility] Comment on above: Performed By: #### C MP ####[facility] Pixyxwargg638[address] [place], [place] [address]DrKianna Tripathi OSMOLALITYon 10-02-2022 Osmolality [Osmolality] 277 mosm/kg Normal 275-295 [facility] Comment on above: Performed By: #### O SMO ####[facility] Inblskwydb9[address] [place], [place] [address]DrKianna Tripathi CBC AUTO DIFFon 09-29-2022 BASO # 0.0 103/ul Normal 0.0-0.1 [facility] Comment on above: Performed By: #### C BC ####[facility] Oculffxnlx2307[address] [place], [place] [address]DrKianna Tripathi Basophils/100 WBC (Bld) 0.5 % Normal 0.2-2.0 [facility] Comment on above: Performed By: #### C BC ####[facility] Cbbqyktyla1630[address] [place], [place] [address]Dr. Airam Tripathi EO # 0.2 103/ul Normal 0.0-0.7 [facility] Comment on above: Performed By: #### C BC ####[facility] Klrztgrzgn801224 [address] [place], [place] [address]Dr. Airam Tripathi Eosinophils/100 WBC (Bld) 3.2 % Normal 0.9-7.0 [facility] Comment on above: Performed By: #### C BC ####[facility] Zhfwzdzxrj1818[address] [place], [place] [address]Dr. Airam Tripathi Erythrocyte distribution width (RBC) [Ratio] 15.1 % Critically high 11.0-15.0 [facility] Comment on above: Performed By: #### C BC ####[facility] Mjlkdgymsf2209[address] [place], [place] [address]Dr. Airam Tripathi Hematocrit (Bld) [Volume fraction] 26.2 % Critically low 36.0-48.0 [facility] Comment on above: Performed By: #### C BC ####[facility] Totrwqiosj3379[address] [place], [place] [address]Dr. Airam Tripathi Hemoglobin (Bld) [Mass/Vol] 8.1 g/dL Critically low 12.0-16.0 [facility] Comment on above: Performed By: #### C BC ####[facility] Oaslagpyrz2535[address] [place], [place] [address]Dr. Airam Tripathi IG # 0.02 10e3/ul Normal 0.00-0.03 [facility] Comment on above: Performed By: #### C BC ####[facility] Ojhlanmtic779[address] [place], [place] [address]Dr. Airam Tripathi IG % 0.4 % Normal 0.0-0.5 [facility] Comment on above: Performed By: #### C BC ####[facility] Idajtwrtob517024 [address] [place], [place] [address]Dr. Airam Tripathi LYMPH # 1.3 103/ul Normal 1.2-3.8 [facility] Comment on above: Performed By: #### C BC ####[facility] Usgsfbxoad3732 [place] [address]Dr. Airam Tripathi Lymphocytes/100 WBC (Bld) 22.6 % Normal 20.5-60.0 [facility] Comment on above: Performed By: #### C BC ####[facility] Xpedpuctdz3267 [place] [address]DrKianna Tripathi MANUAL DIFF REQ NO Normal [facility] Comment on above: Performed By: #### C BC ####[facility] Ufwougmxtt1367 [place] [address]DrKianna Tripathi MCH (RBC) [Entitic mass] 28.0 pg Normal 26.7-34.0 [facility] Comment on above: Performed By: #### C BC ####[facility] Fbohdknxii[address] [place], [place] [address]Dr. Airam Tripathi MCHC (RBC) [Mass/Vol] 30.9 g/dL Normal 29.9-35.2 [facility] Comment on above: Performed By: #### C BC ####[facility] Evgfsgutdi6536[address] [place], [place] [address]DrKianna Tripathi MCV (RBC) [Entitic vol] 90.7 fL Normal 81.0-99.0 [facility] Comment on above: Performed By: #### C BC ####[facility] Scxmdivrjz8004[address] [place], [place] [address]Dr. Airam Tripathi MONO # 0.5 103/ul Normal 0.3-0.8 [facility] Comment on above: Performed By: #### C BC ####[facility] Henetpgnlj0317[address] [place], [place] [address]DrKianna Tripathi Monocytes/100 WBC (Bld) 9.6 % Normal 1.7-12.0 [facility] Comment on above: Performed By: #### C BC ####[facility] Umofsmiqpu398[address] [place], [place] [address]DrKianna Tripathi NEUT # 3.6 103/ul Normal 1.4-6.5 [facility] Comment on above: Performed By: #### C BC ####[facility] Axqsxqdpxo3582 [place] [address]Dr. Airam Tripathi Neutrophils/100 WBC (Bld) 63.7 % Normal 43.0-75.0 [facility] Comment on above: Performed By: #### C BC ####[facility] Lbkvrcmgxw7459 [place] [address]Dr. Airam Tripathi Platelet mean volume (Bld) [Entitic vol] 9.4 fL Critically low 9.5-13.5 [facility] Comment on above: Performed By: #### C BC ####[facility] Ftlshkecps8389[address] [place], [place] [address]Dr. Airam Tripathi PLT 258 103/ul Normal 150-450 [facility] Comment on above: Performed By: #### C BC ####[facility] Ssdujcydjg500[address] [place], [place] [address]Dr. Airam Tripathi RBC 2.89 106/ul Critically low 4.20-5.40 [facility] Comment on above: Performed By: #### C BC ####[facility] Fqvhldeafw2487[address] [place], [place] [address]Dr. Airam Tripathi WBC 5.6 103/ul Normal 4.0-11.0 [facility] Comment on above: Performed By: #### C BC ####[facility] Yjbgtcvlfy8424[address] [place], [place] [address]DrKianna Tripathi PROF 14(COMP METB)on 023 Albumin [Mass/Vol] 3.0 g/dL Critically low 3.4-5.0 [facility] Comment on above: Performed By: #### C MP ####[facility] Tcxwtxjdcl014[address] [place], [place] [address]DrKianna Tripathi Albumin/Globulin [Mass ratio] 1.1 {ratio} Normal [facility] Comment on above: Performed By: #### C MP ####[facility] Cgjkvsinhe3634[address] [place], [place] [address]DrKianna Tripathi ALP [Catalytic activity/Vol] 102 U/L Normal 46-116 [facility] Comment on above: Performed By: #### C MP ####[facility] Lysukuoigu7917 [place] [address]Dr. Airam Tripathi ALT [Catalytic activity/Vol] 20 U/L Normal 14-59 [facility] Comment on above: Performed By: #### C MP ####[facility] Whlbjquhwf1389 [place] [phone]. Airam Tripathi Anion gap [Moles/Vol] 11.1 mmol/L Normal [facility] Comment on above: Performed By: #### C MP ####[facility] Ivhpdzjwiy2680 [place] [address]Dr. Airam Tripathi AST [Catalytic activity/Vol] 18 U/L Normal 15-37 [facility] Comment on above: Performed By: #### C MP ####[facility] Qhcmeinmsm4246[address] [place], [place] [address]Dr. Airam Deuce Bilirubin [Mass/Vol] 0.2 mg/dL Normal 0.2-1.0 [facility] Comment on above: Performed By: #### C MP ####[facility] Ansqmgvfwv2048[address] [place], [place] [address]Dr. Airam Deuce Calcium [Mass/Vol] 8.0 mg/dL Critically low 8.5-10.1 [facility] Comment on above: Performed By: #### C MP ####[facility] Nbhjusckuw3571 [place] [address]Dr. Airam Deuce Chloride [Moles/Vol] 100 mmol/L Normal 98-107 [facility] Comment on above: Performed By: #### C MP ####[facility] Wbbvzbfwvi0365 [place] [phone]. Airam Deuce CO2 [Moles/Vol] 24.8 mmol/L Normal 21.0-32.0 [facility] Comment on above: Performed By: #### C MP ####[facility] Ntazwslnwa7714 [place] [phone]. Airam Deuce Creatinine [Mass/Vol] 1.11 mg/dL Critically high 0.55-1.02 [facility] Comment on above: Performed By: #### C MP ####[facility] Wxvfgdiafm6938 [place] [phone]. Airam Deuce EGFR-AF CITIZEN OF [place] >60 Normal >=60 [facility] Comment on above: Performed By: #### C MP ####[facility] Qfendsblvp8989 [place] [phone]. Airam Deuce EGFR-NON AF CITIZEN OF [place] 50 mL/min/1.73m2 Critically low >=60 [facility] Comment on above: Performed By: #### C MP ####[facility] Jrhpwfgdgo0874 [place] [phone]. Airam Deuce Globulin (S) [Mass/Vol] 2.8 g/dL Normal [facility] Comment on above: Performed By: #### C MP ####[facility] Arrahjolfz5397 [place] [address]Dr. Airam Tripathi Glucose [Mass/Vol] 77 mg/dL Normal 74-106 [facility] Comment on above: Performed By: #### C MP ####[facility] Rgwgxrlxkr5441 [place] [address]Dr. Airam Deuce Potassium [Moles/Vol] 4.9 mmol/L Normal 3.5-5.1 [facility] Comment on above: Performed By: #### C MP ####[facility] Eomzadpjso7281 [place] [address]Dr. Selenaneil Deuce Protein [Mass/Vol] 5.8 g/dL Critically low 6.4-8.2 [facility] Comment on above: Performed By: #### C MP ####[facility] Suhjhnnovu4050 [place] [phone]. Airam Tripathi Sodium [Moles/Vol] 131 mmol/L Critically low 136-145 [facility] Comment on above: Performed By: #### C MP ####[facility] Rmsciikgaf4554 [place] [address]Dr. Airam Tripathi Urea nitrogen [Mass/Vol] 33.0 mg/dL Critically high 7.0-18.0 [facility] Comment on above: Performed By: #### C MP ####[facility] Gowvhspyio1867[address] [place], [place] [address]Dr. Airam Tripathi Urea nitrogen/Creatinine [Mass ratio] 29.7 mg/mg Normal [facility] Comment on above: Performed By: #### C MP ####[facility] Yyevuopljq509[address] [place], [place] [address]Dr. Airam Deuce ECHOCARDIO M/2D COMPLETEon 0 09-21-2022 ECHOCARDIO M/2D COMPLETE Normal [facility] OSMOLALITYon 09-21-2022 Osmolality [Osmolality] 282 mosm/kg Normal 275-295 [facility] Comment on above: Performed By: #### O SMO ####[facility] Znsowvjryv14[address] [place], [place] [address]Dr. Airam Deuce PHOSPHOLIPIDSon 09-21-2022 Phospholipids, Serum 249 mg/dL Normal 151-288 [facility] Comment on above: Performed By: #### P HOSLIP ####[facility] Armfmsmgvf5770[address] [place], [place] [address]Dr. Airam Deuce CBC AUTO DIFFon 09-20-2022 BASO # 0.0 103/ul Normal 0.0-0.1 [facility] Comment on above: Performed By: #### C BC ####[facility] Ukwnscjbfn9618[address] [place], [place] [address]Dr. Selenaneil Tripathi Basophils/100 WBC (Bld) 0.5 % Normal 0.2-2.0 [facility] Comment on above: Performed By: #### C BC ####[facility] Dpoxqlfkhd5238[address] [place], [place] [address]Dr. Airam Deuce EO # 0.2 103/ul Normal 0.0-0.7 [facility] Comment on above: Performed By: #### C BC ####[facility] Cgdbqdgyzb005[address] [place], [place] [address]Dr. Airam Tripathi Eosinophils/100 WBC (Bld) 2.9 % Normal 0.9-7.0 [facility] Comment on above: Performed By: #### C BC ####[facility] Plufjdgbxd7584[address] [place], [place] [address]Dr. Airam Tripathi Erythrocyte distribution width (RBC) [Ratio] 15.4 % Critically high 11.0-15.0 [facility] Comment on above: Performed By: #### C BC ####[facility] Tbrqcdqkyh3128[address] [place], [place] [address]Dr. Airam Tripathi Hematocrit (Bld) [Volume fraction] 26.3 % Critically low 36.0-48.0 [facility] Comment on above: Performed By: #### C BC ####[facility] Nvwlphpgwi9880[address] [place], [place] [address]Dr. Selenaneil Tripathi Hemoglobin (Bld) [Mass/Vol] 8.2 g/dL Critically low 12.0-16.0 [facility] Comment on above: Performed By: #### C BC ####[facility] Zbydvllzsn4837[address] [place], [place] [address]Dr. Airam Tripathi IG # 0.03 10e3/ul Normal 0.00-0.03 [facility] Comment on above: Performed By: #### C BC ####[facility] Ojmtsykjxu3467[address] [place], [place] [address]Dr. Selenaneil Tripathi IG % 0.4 % Normal 0.0-0.5 [facility] Comment on above: Performed By: #### C BC ####[facility] Oqvuejopge69[address] [place], [place] [address]Dr. Airam Tripathi LYMPH # 1.9 103/ul Normal 1.2-3.8 [facility] Comment on above: Performed By: #### C BC ####[facility] Wlemerfqak0919[address] [place], [place] [address]Dr. Airam Tripathi Lymphocytes/100 WBC (Bld) 23.0 % Normal 20.5-60.0 [facility] Comment on above: Performed By: #### C BC ####[facility] Obyhigxdcn6328[address] [place], [place] [address]Dr. Airam Tripathi MANUAL DIFF REQ NO Normal [facility] Comment on above: Performed By: #### C BC ####[facility] Mfngqsxqbh5[address] [place], [place] [address]Dr. Airam Tripathi MCH (RBC) [Entitic mass] 28.5 pg Normal 26.7-34.0 [facility] Comment on above: Performed By: #### C BC ####[facility] Hhysibpowk7792 [place] [address]Dr. Airam Tripathi MCHC (RBC) [Mass/Vol] 31.2 g/dL Normal 29.9-35.2 [facility] Comment on above: Performed By: #### C BC ####[facility] Zujgcuyskk3484 [place] [address]Dr. Airam Tripathi MCV (RBC) [Entitic vol] 91.3 fL Normal 81.0-99.0 [facility] Comment on above: Performed By: #### C BC ####[facility] Ijlnucwque0330 [place] [address]Dr. Airam Tripathi MONO # 0.7 103/ul Normal 0.3-0.8 [facility] Comment on above: Performed By: #### C BC ####[facility] Mcoxedvgoe1364 [place] [address]Dr. Airam Deuce Monocytes/100 WBC (Bld) 7.7 % Normal 1.7-12.0 [facility] Comment on above: Performed By: #### C BC ####[facility] Qpbhhkpaga5936 [place] [address]Dr. Airam Tripathi NEUT # 5.5 103/ul Normal 1.4-6.5 [facility] Comment on above: Performed By: #### C BC ####[facility] Spoeffpeas1564[address] [place], [place] [address]Dr. Airam Deuce Neutrophils/100 WBC (Bld) 65.5 % Normal 43.0-75.0 [facility] Comment on above: Performed By: #### C BC ####[facility] Opyhtrzdql8667 [place] [address]Dr. Airam Deuce Platelet mean volume (Bld) [Entitic vol] 9.1 fL Critically low 9.5-13.5 [facility] Comment on above: Performed By: #### C BC ####[facility] Zjldlbleoq1031 [place] [address]Dr. Airam Tripathi PLT 258 103/ul Normal 150-450 [facility] Comment on above: Performed By: #### C BC ####[facility] Ttwqqqwpwm6400 [place] [address]Dr. Airam Tripathi RBC 2.88 106/ul Critically low 4.20-5.40 [facility] Comment on above: Performed By: #### C BC ####[facility] Snpbtyowjn9[address] [place], [place] [address]Dr. Airam Tripathi WBC 8.4 103/ul Normal 4.0-11.0 [facility] Comment on above: Performed By: #### C BC ####[facility] Hugeunmgkl77[address] [place], [place] [address]Dr. Selenaneil Tripathi PROF CHEM 8 (BAS METB)on Anion gap [Moles/Vol] 10.3 mmol/L Normal [facility] Comment on above: Performed By: #### B MP ####[facility] Rftjhpbxdq18[address] [place], [place] [address]Dr. Airam Tripathi Calcium [Mass/Vol] 7.9 mg/dL Critically low 8.5-10.1 [facility] Comment on above: Performed By: #### B MP ####[facility] [address]qzdbmuys69[address] [place], [place] [address]Dr. Airam Tripathi Chloride [Moles/Vol] 98 mmol/L Normal 98-107 [facility] Comment on above: Performed By: #### B MP ####[facility] Xvgzedbsya60[address] [place], [place] [address]Dr. Airam Tripathi CO2 [Moles/Vol] 27.5 mmol/L Normal 21.0-32.0 [facility] Comment on above: Performed By: #### B MP ####[facility] Ctesvnbvcg63[address] [place], [place] [address]Dr. Airam Tripathi Creatinine [Mass/Vol] 1.44 mg/dL Critically high 0.55-1.02 [facility] Comment on above: Performed By: #### B MP ####[facility] [facility] Bmhbzpruzz0998 [place], [place] [address]Bo. Airam Tripathi EGFR-AF CITIZEN OF [place] 45 mL/min/1.73m2 Critically low >=60 [facility] Comment on above: Performed By: #### B MP ####[facility] Vflnbqddxd9[address] [place], [place] [address]Id. Airam Tripatih EGFR-NON AF CITIZEN OF [place] 37 mL/min/1.73m2 Critically low >=60 [facility] Comment on above: Performed By: #### B MP ####[facility] Zlelgifykp9606 [place], [place] [address]Xa. Airam Tripathi Glucose [Mass/Vol] 91 mg/dL Normal 74-106 [facility] Comment on above: Performed By: #### B MP ####[facility] Fqxyzyaxfs6074 [place] [phone]. Airam Tripathi Potassium [Moles/Vol] 4.8 mmol/L Normal 3.5-5.1 [facility] Comment on above: Performed By: #### B MP ####[facility] Exbkepvxwz2445 [place] [phone]. Airam Tripathi Sodium [Moles/Vol] 131 mmol/L Critically low 136-145 [facility] Comment on above: Performed By: #### B MP ####[facility] Rrbzkwfuhl1130 [place] [phone]. Airam Tripathi Urea nitrogen [Mass/Vol] 40.0 mg/dL Critically high 7.0-18.0 [facility] Comment on above: Performed By: #### B MP ####[facility] Tqgjortoek5585 [place] [phone]. Airam Tripathi Urea nitrogen/Creatinine [Mass ratio] 27.8 mg/mg Normal [facility] Comment on above: Performed By: #### B MP ####[facility] Cxageprlgp2350 [place] [phone]. Airam Tripathi Anion gap [Moles/Vol] 10.6 mmol/L Normal [facility] Comment on above: Performed By: #### B MP ####[facility] Zqmxpcnrug3574 [place] [phone]. Airam Tripathi Calcium [Mass/Vol] 7.9 mg/dL Critically low 8.5-10.1 Th e [facility] Comment on above: Performed By: #### B MP ####[facility] Dkikfsuzyy8042 [place] [phone]. Airam Tripathi Chloride [Moles/Vol] 101 mmol/L Normal 98-107 [facility] Comment on above: Performed By: #### B MP ####[facility] Vqvmqrwwqr3275 [place] [phone]. Airam Tripathi CO2 [Moles/Vol] 27.4 mmol/L Normal 21.0-32.0 [facility] Comment on above: Performed By: #### B MP ####[facility] Xvpwbnmqux[address] [place], [place] [address]Dr. Airam Tripathi Creatinine [Mass/Vol] 1.35 mg/dL Critically high 0.55-1.02 [facility] Comment on above: Performed By: #### B MP ####[facility] Ubzcnqzfpg1344 [place] [phone]. Airam Tripathi EGFR-AF CITIZEN OF [place] 48 mL/min/1.73m2 Critically low >=60 [facility] Comment on above: Performed By: #### B MP ####[facility] Kanethxilj[address] [place], [place] [address]Dr. Airam Tripathi EGFR-NON AF CITIZEN OF [place] 40 mL/min/1.73m2 Critically low >=60 [facility] Comment on above: Performed By: #### B MP ####[facility] Likhyygxno7281 [place] [phone]. Airam Tripathi Glucose [Mass/Vol] 114 mg/dL Critically high 74-106 [facility] Comment on above: Performed By: #### B MP ####[facility] Bqgwlztbgh[address] [place] [address]Dr. Airam Tripathi Potassium [Moles/Vol] 5.0 mmol/L Normal 3.5-5.1 [facility] Comment on above: Performed By: #### B MP ####[facility] Nqrjstnmrk[address] [place], [place] [address]Dr. Airam Tripathi Sodium [Moles/Vol] 134 mmol/L Critically low 136-145 [facility] Comment on above: Performed By: #### B MP ####[facility] Pehbgqslhv[address] [place], [place] [address]Dr. Airam Tripathi Urea nitrogen [Mass/Vol] 40.0 mg/dL Critically high 7.0-18.0 [facility] Comment on above: Performed By: #### B MP ####[facility] Qyhnmweuvv6[address] [place], [place] [address]Dr. Airam Tripathi Urea nitrogen/Creatinine [Mass ratio] 29.6 mg/mg Normal [facility] Comment on above: Performed By: #### B MP ####[facility] Wkjxfgjmqs6740[address] [place], [place] [address]Dr. Airam Tripathi PTH INTACTon 09-20-2022 PTH, Intact 104 pg/mL Critically high 15-65 [facility] Comment on above: Performed By: #### P THINT ####[facility] Nsanousmav94[address] [place], [place] [address]Dr. Airam Tripathi BNPon 09-19-2022 Natriuretic peptide B (Bld) [Mass/Vol] 1272.0 pg/mL Critically high <=900.0 [facility] Comment on above: Performed By: #### H STROPN, TSH, K, BNP ####[facility] Rbhvirwzwe25[address] [place], [place] [address]Dr. Airam Tripathi CBC AUTO DIFFon 09-19-2022 BASO # 0.0 103/ul Normal 0.0-0.1 [facility] Comment on above: Performed By: #### C BC ####[facility] Zyykphysfv01[address] [place], [place] [address]Dr. Airam Tripathi Basophils/100 WBC (Bld) 0.5 % Normal 0.2-2.0 [facility] Comment on above: Performed By: #### C BC ####[facility] Maabwmezeo24[address] [place], [place] [address]Dr. Airam Tripathi EO # 0.2 103/ul Normal 0.0-0.7 [facility] Comment on above: Performed By: #### C BC ####[facility] Otjuzqzrrh80[address] [place] [address]Dr. Airam Tripathi Eosinophils/100 WBC (Bld) 2.6 % Normal 0.9-7.0 [facility] Comment on above: Performed By: #### C BC ####[facility] Wpvcyulufm42[address] [place], [place] [address]Dr. Airam Tripathi Erythrocyte distribution width (RBC) [Ratio] 15.5 % Critically high 11.0-15.0 [facility] Comment on above: Performed By: #### C BC ####[facility] Juitxoqizl4[address] [place], [place] [address]Dr. Airam Tripathi Hematocrit (Bld) [Volume fraction] 31.1 % Critically low 36.0-48.0 [facility] Comment on above: Performed By: #### C BC ####[facility] Oqovkgbhnr[address] [place], [place] [address]Dr. Airam Tripathi Hemoglobin (Bld) [Mass/Vol] 9.6 g/dL Critically low 12.0-16.0 [facility] Comment on above: Performed By: #### C BC ####[facility] Uwafnktrwh5[address] [place], [place] [address]Dr. Airam Tripathi IG # 0.04 10e3/ul Critically high 0.00-0.03 [facility] Comment on above: Performed By: #### C BC ####[facility] Dxlglgnfhm1356[address] [place], [place] [address]Dr. iAram Tripathi IG % 0.5 % Normal 0.0-0.5 [facility] Comment on above: Performed By: #### C BC ####[facility] Pzksqjjznj79[address] [place], [place] [address]Dr. Airam Tripathi LYMPH # 1.0 103/ul Critically low 1.2-3.8 [facility] Comment on above: Performed By: #### C BC ####[facility] Fjapcazbic24[address] [place], [place] [address]Dr. Airam Tripathi Lymphocytes/100 WBC (Bld) 12.0 % Critically low 20.5-60.0 [facility] Comment on above: Performed By: #### C BC ####[facility] Bcuqmbxzgw9844 [place] [address]DrKianna Tripathi MANUAL DIFF REQ NO Normal [facility] Comment on above: Performed By: #### C BC ####[facility] Gjjeeipnxv0785 [place] [address]DrKianna Tripathi MCH (RBC) [Entitic mass] 28.2 pg Normal 26.7-34.0 [facility] Comment on above: Performed By: #### C BC ####[facility] Usiqrtsail[address] [place], [place] [address]DrKianna Tripathi MCHC (RBC) [Mass/Vol] 30.9 g/dL Normal 29.9-35.2 [facility] Comment on above: Performed By: #### C BC ####[facility] Fbrnluamfy[address] [place], [place] [address]DrKianna Tripathi MCV (RBC) [Entitic vol] 91.5 fL Normal 81.0-99.0 [facility] Comment on above: Performed By: #### C BC ####[facility] Smivpkvwqe6[address] [place], [place] [address]DrKianna Tripathi MONO # 0.5 103/ul Normal 0.3-0.8 [facility] Comment on above: Performed By: #### C BC ####[facility] Pwkkhbjfqp34[address] [place], [place] [address]DrKianna Tripathi Monocytes/100 WBC (Bld) 6.4 % Normal 1.7-12.0 [facility] Comment on above: Performed By: #### C BC ####[facility] Udaazokszq[address] [place], [place] [address]DrKianna Tripathi NEUT # 6.4 103/ul Normal 1.4-6.5 [facility] Comment on above: Performed By: #### C BC ####[facility] Alycybbpmm[address] [place], [place] [address]DrKianna Tripathi Neutrophils/100 WBC (Bld) 78.0 % Critically high 43.0-75.0 [facility] Comment on above: Performed By: #### C BC ####[facility] Xnfvmzsmpe0110 [place] [phone]. Airam Tripathi Platelet mean volume (Bld) [Entitic vol] 9.1 fL Critically low 9.5-13.5 [facility] Comment on above: Performed By: #### C BC ####[facility] Oljiznuhpd8136 [place] [phone]. Airam Tripathi PLT 318 103/ul Normal 150-450 [facility] Comment on above: Performed By: #### C BC ####[facility] Ucjnbobjmr7319 [place] [address]Dr. Airam Tripathi RBC 3.40 106/ul Critically low 4.20-5.40 [facility] Comment on above: Performed By: #### C BC ####[facility] Hilnwvpact8495 [place] [phone]. Airam Tripathi WBC 8.2 103/ul Normal 4.0-11.0 [facility] Comment on above: Performed By: #### C BC ####[facility] Merghxqaol7118 [place] [address]Dr. Airam Tripathi Covid-19 PCR ([facility])on 08-25 SARS-CoV-2 (COVID-19) RNA MIKE+probe Ql (Unsp spec) Not detected Normal NOT DETECTED [facility] Comment on above: Result Comment: When [...] for this test is supported by the [place] of Health and Human Service's declaration that [...] be used). Performed By: #### C VDTBH ####[facility] Vwcxtvuhlf4760 [place] [address]Dr. Airam Tripathi LACTATE/LACTIC ACIDon 2022 Lactate [Moles/Vol] 0.4 mmol/L Normal 0.4-2.0 [facility] Comment on above: Performed By: #### L ACT ####[facility] Vyhzkuokga[address] [place], [place] [address]Dr. Airam Tripathi POTASSIUMon 09-19-2022 Potassium [Moles/Vol] 6.3 mmol/L Critically high 3.5-5.1 [facility] Comment on above: Performed By: #### H STROPN, TSH, K, BNP ####[facility] Fqzwxgzzmy44[address] [place], [place] [address]Dr. Airam Tripathi PROF 14(COMP METB)on 023 Albumin [Mass/Vol] 3.5 g/dL Normal 3.4-5.0 [facility] Comment on above: Performed By: #### C MP ####[facility] Zazcvwcxzw7211 [place] [address]Dr. Airam Tripathi Albumin/Globulin [Mass ratio] 1.1 {ratio} Normal [facility] Comment on above: Performed By: #### C MP ####[facility] Ljejbgzsif2183 [place] [address]Dr. Airam Tripathi ALP [Catalytic activity/Vol] 113 U/L Normal 46-116 [facility] Comment on above: Performed By: #### C MP ####[facility] Okxawgwywi7[address] [place], [place] [address]Dr. Airam Tripathi ALT [Catalytic activity/Vol] 26 U/L Normal 14-59 [facility] Comment on above: Performed By: #### C MP ####[facility] Cplvpxnwvi8[address] [place], [place] [address]Dr. Airam Tripathi Anion gap [Moles/Vol] 11.5 mmol/L Normal Th e [facility] Comment on above: Performed By: #### C MP ####[facility] Reixeozsvs1192 [place] [phone]. Airam Tripathi AST [Catalytic activity/Vol] 24 U/L Normal 15-37 [facility] Comment on above: Performed By: #### C MP ####[facility] Xavybziilv[address] [place], [place] [address]Dr. Airam Deuce Bilirubin [Mass/Vol] 0.3 mg/dL Normal 0.2-1.0 [facility] Comment on above: Performed By: #### C MP ####[facility] Krgrhyuuue4399[address] [place], [place] [address]Dr. Airam Deuce Calcium [Mass/Vol] 8.9 mg/dL Normal 8.5-10.1 [facility] Comment on above: Performed By: #### C MP ####[facility] Rrnkawdlxb128[address] [place], [place] [address]Dr. Airam Deuce Chloride [Moles/Vol] 103 mmol/L Normal 98-107 [facility] Comment on above: Performed By: #### C MP ####[facility] Hijtjhyqss8[address] [place], [place] [address]Dr. Airam Deuce CO2 [Moles/Vol] 27.8 mmol/L Normal 21.0-32.0 [facility] Comment on above: Performed By: #### C MP ####[facility] Ocutojeqql10[address] [place], [place] [address]Dr. Airam Deuce Creatinine [Mass/Vol] 1.28 mg/dL Critically high 0.55-1.02 [facility] Comment on above: Performed By: #### C MP ####[facility] Vdogqnkfdj[address] [place], [place] [address]DrKianna Waltersneil Deuce EGFR-AF CITIZEN OF [place] 52 mL/min/1.73m2 Critically low >=60 [facility] Comment on above: Performed By: #### C MP ####[facility] Eyjbaocojm23[address] [place], [place] [address]Dr. Airam Tripathi EGFR-NON AF CITIZEN OF [place] 43 mL/min/1.73m2 Critically low >=60 [facility] Comment on above: Performed By: #### C MP ####[facility] Sppfhegmaf8500 [place] [address]Dr. Airam Tripathi Globulin (S) [Mass/Vol] 3.2 g/dL Normal [facility] Comment on above: Performed By: #### C MP ####[facility] Bdnspeubqb0689 [place] [address]Dr. Airam Tripathi Glucose [Mass/Vol] 95 mg/dL Normal 74-106 [facility] Comment on above: Performed By: #### C MP ####[facility] Nlhwpsgblu[address] [place], [place] [address]Dr. Airam Tripathi Potassium [Moles/Vol] 6.3 mmol/L Critically high 3.5-5.1 [facility] Comment on above: Performed By: #### C MP ####[facility] Ylsiesopzb3435[address] [place], [place] [address]Dr. Airam Tripathi Protein [Mass/Vol] 6.7 g/dL Normal 6.4-8.2 [facility] Comment on above: Performed By: #### C MP ####[facility] Soucqsnlfb1529[address] [place], [place] [address]Dr. Airam Tripathi Sodium [Moles/Vol] 135 mmol/L Critically low 136-145 [facility] Comment on above: Performed By: #### C MP ####[facility] Vhjlygwtgy682[address] [place], [place] [address]Dr. Airam Tripathi Urea nitrogen [Mass/Vol] 42.0 mg/dL Critically high 7.0-18.0 [facility] Comment on above: Performed By: #### C MP ####[facility] Tfcxouuuai7982[address] [place], [place] [address]Dr. Airam Tripathi Urea nitrogen/Creatinine [Mass ratio] 32.8 mg/mg Normal [facility] Comment on above: Performed By: #### C MP ####[facility] Qsbazahpez8488[address] [place], [place] [address]Dr. Airam Tripathi TROPONIN, HIGH SENSITIVITYon 09-19-2022 HSTROP 7.1 pg/mL Normal 4.0-51.3 [facility] Comment on above: Result Comment: CUT- OFF POINTS HAVE BEEN ESTABLISHED BASED ON THE FOURTH UNIVERSAL DEFINITIONS OF MYOCARDIALINFARCTION. THE UPPER REFERENCE LIMIT (URL) OF TROPONIN, DEFINED THE 99TH PERCENTILE OFcTnI DISTRIBUTION IN A REFERENCE POPULATION, HAS BEEN CONFIRMED THE DECISION THRESHOLDFOR AR DIAGNOSIS. Performed By: #### H STROPN, TSH, K, BNP ####[facility] Yshzlgfhvx4139 [place] [address]Dr. Airam Tripathi TSHon 09-19-2022 TSH 0.028 uIU/mL Critically low 0.358-3.740 [facility] Comment on above: Performed By: #### H STROPN, TSH, K, BNP ####[facility] Daijknqljw[address] [place], [place] [address]Dr. Airam Tripathi UA RANDOMon 09-19-2022 Bilirubin Ql (U) Negative Normal NEGATIVE [facility] Comment on above: Performed By: #### U A ####[facility] Fxcvjcahbz13[address] [place], [place] [address]Dr. Airam Tripathi Clarity (U) CLEAR Normal CLEAR [facility] Comment on above: Performed By: #### U A ####[facility] Pdoinybjdq8[address] [place], [place] [address]Dr. Selenaneil Tripathi Color (U) LT. YELLOW Normal YELLOW [facility] Comment on above: Performed By: #### U A ####[facility] Qhyrcexvrd22[address] [place], [place] [address]Dr. Selenaneil Tripathi Glucose Ql (U) Negative Normal NEGATIVE [facility] Comment on above: Performed By: #### U A ####[facility] Swlrcrmqcz4444[address] [place], [place] [address]Dr. Selenaneil Tripathi Hemoglobin Ql (U) Negative Normal NEGATIVE [facility] Comment on above: Performed By: #### U A ####[facility] Mdgezjpboj1164[address] [place], [place] [address]Dr. Selenaneil Tripathi Ketones Ql (U) Negative Normal NEGATIVE [facility] Comment on above: Performed By: #### U A ####[facility] Npkkhgmnmd5511 [place] [address]Dr. Airam Tripathi LEUKOCYTES TRACE Abnormal NEGATIVE [facility] Comment on above: Performed By: #### U A ####[facility] Ozdwrlvcys6807 [place] [address]Dr. Airam Tripathi Nitrite Ql (U) Negative Normal NEGATIVE [facility] Comment on above: Performed By: #### U A ####[facility] Eiqmecqqtz3[address] [place], [place] [address]Dr. Airam Tripathi pH (U) 5.5 [pH] Normal 5-9 [facility] Comment on above: Performed By: #### U A ####[facility] Jdagldlsnr8769[address] [place], [place] [address]Dr. Airam Tripathi SPEC GRAVITY 1.010 Normal 1.005-<=1.02 5 [facility] Comment on above: Performed By: #### U A ####[facility] [address]nhziomftq[address] [place], [place] [address]Dr. Airam Tripathi UA PROTEIN Negative Normal NEGATIVE/ TRACE [facility] Comment on above: Performed By: #### U A ####[facility] Mwygqsrmxs8[address] [place], [place] [address]Dr. Airam Tripathi Urobilinogen Qn (U) 0.2 {Ligia'U}/dL Normal 0.2 - 1. 0 [facility] Comment on above: Performed By: #### U A ####[facility] Gtjojfpizf[address] [place], [place] [address]Dr. Airam Tripathi URIC ACID SERUMon 09-19-2022 Urate [Mass/Vol] 6.9 mg/dL Critically high 2.6-6.0 [facility] Comment on above: Performed By: #### U TRESSA ####[facility] Cfxoebulwt45[address] [place], [place] [address]Dr. Airam Deuce URINE T PROTEIN CREAT RATIOo n 09-19-2022 UR TOTAL PROTEIN <6.0 Normal <=12.0 [facility] Comment on above: Performed By: #### U RTPCR ####[facility] Gwdcbivedy5[address] [place] [address]Dr. Airam Deuce URINE CREAT 15.12 mg/dL Critically low 20.00-300.00 [facility] Comment on above: Performed By: #### U RTPCR ####[facility] Pdzebsdnsk224[address] [place], [place] [address]Dr. Airam Deuce VITAMIN D 25 OHon 09-19-2022 VIT D 25-OH 75.9 ng/mL Normal [facility] Comment on above: Performed By: #### V ITAD ####[facility] Tmsmpfcyiv397[address] [place], [place] [address]Dr. Airam Tripathi VIT D RANGES SEE BELOW Normal [facility] Comment on above: Result Comment: <20 ng/mL Vit D deficient 20 - <30 ng/mL Vit D insufficient 30 - 100 ng/mL Vit D sufficient >100 ng/mL Potential Toxicity Performed By: #### V ITAD ####[facility] [address]watqmfjy[address] [place], [place] [address]Dr. Airam Tripathi OSMOLALITYon 09-14-2022 Osmolality [Osmolality] 272 mosm/kg Critically low 275-295 [facility] Comment on above: Performed By: #### O SMO ####[facility] Wykxsvygrs464[address] [place], [place] [address]Dr. Airam Tripathi CBC AUTO DIFFon 09-12-2022 BASO # 0.0 103/ul Normal 0.0-0.1 [facility] Comment on above: Performed By: #### C BC ####[facility] Nzdjgeioxy[address] [place], [place] [address]Dr. Airam Tripathi Basophils/100 WBC (Bld) 0.5 % Normal 0.2-2.0 [facility] Comment on above: Performed By: #### C BC ####[facility] [address]gwvjbeu[address] [place], [place] [address]DrKianna Tripathi EO # 0.2 103/ul Normal 0.0-0.7 [facility] Comment on above: Performed By: #### C BC ####[facility] Xcjhnlvskc[address] [place], [place] [address]DrKianna Tripathi Eosinophils/100 WBC (Bld) 2.4 % Normal 0.9-7.0 [facility] Comment on above: Performed By: #### C BC ####[facility] Cnkfxnjaaq1179 [place] [address]Dr. Airam Tripathi Erythrocyte distribution width (RBC) [Ratio] 14.8 % Normal 11.0-15.0 [facility] Comment on above: Performed By: #### C BC ####[facility] [address]acznnvbrw[address] [place], [place] [address]Dr. Airam Tripathi Hematocrit (Bld) [Volume fraction] 32.6 % Critically low 36.0-48.0 [facility] Comment on above: Performed By: #### C BC ####[facility] Rrqhruujxs5[address] [place], [place] [address]Dr. Airam Tripathi Hemoglobin (Bld) [Mass/Vol] 10.1 g/dL Critically low 12.0-16.0 [facility] Comment on above: Performed By: #### C BC ####[facility] Ictuqmztdg93[address] [place], [place] [address]Dr. Airam Tripathi IG # 0.05 10e3/ul Critically high 0.00-0.03 [facility] Comment on above: Performed By: #### C BC ####[facility] Ihagvrcovm[address] [place], [place] [address]Dr. Airam Tripathi IG % 0.7 % Critically high 0.0-0.5 [facility] Comment on above: Performed By: #### C BC ####[facility] [address]upkkgtmmu7564[address] [place], [place] [address]Dr. Airam Tripathi LYMPH # 1.9 103/ul Normal 1.2-3.8 [facility] Comment on above: Performed By: #### C BC ####[facility] Xolmlteeyk2[address] [place], [place] [address]Dr. Airam Tripathi Lymphocytes/100 WBC (Bld) 24.7 % Normal 20.5-60.0 [facility] Comment on above: Performed By: #### C BC ####[facility] [address]ikcstony[address] [place], [place] [address]Dr. Airam Tripathi MANUAL DIFF REQ NO Normal [facility] Comment on above: Performed By: #### C BC ####[facility] Bgtlqdtuwd37[address] [place] [address]Dr. Airam Deuce MCH (RBC) [Entitic mass] 28.0 pg Normal 26.7-34.0 [facility] Comment on above: Performed By: #### C BC ####[facility] [address]pxktndrj[address] [place], [place] [address]Dr. Airam Deuce MCHC (RBC) [Mass/Vol] 31.0 g/dL Normal 29.9-35.2 [facility] Comment on above: Performed By: #### C BC ####[facility] [address]fgnmnajdg[address] [place], [place] [address]Dr. Airam Tripathi MCV (RBC) [Entitic vol] 90.3 fL Normal 81.0-99.0 [facility] Comment on above: Performed By: #### C BC ####[facility] [address]thqvcon[address] [place], [place] [address]Dr. Aiarm Tripathi MONO # 0.5 103/ul Normal 0.3-0.8 [facility] Comment on above: Performed By: #### C BC ####[facility] [address]ntwxuhcp[address] [place], [place] [address]Dr. Airam Tripathi Monocytes/100 WBC (Bld) 6.0 % Normal 1.7-12.0 [facility] Comment on above: Performed By: #### C BC ####[facility] Minntkuuww[address] [place], [place] [address]DrKianna Tripathi NEUT # 5.0 103/ul Normal 1.4-6.5 [facility] Comment on above: Performed By: #### C BC ####[facility] Ywvyahtytf[address] [place], [place] [address]DrKianna Tripathi Neutrophils/100 WBC (Bld) 65.7 % Normal 43.0-75.0 [facility] Comment on above: Performed By: #### C BC ####[facility] Qqhebuhwok8[address] [place], [place] [address]Dr. Airam Tripathi Platelet mean volume (Bld) [Entitic vol] 9.5 fL Normal 9.5-13.5 [facility] Comment on above: Performed By: #### C BC ####[facility] Jmrnajdjxq5[address] [place] [address]Dr. Airam Tripathi PLT 307 103/ul Normal 150-450 [facility] Comment on above: Performed By: #### C BC ####[facility] Fvmdailwaw23[address] [place] [address]Dr. Airam Tripathi RBC 3.61 106/ul Critically low 4.20-5.40 [facility] Comment on above: Performed By: #### C BC ####[facility] Vrueimnkft0988 [place] [address]Dr. Airam Tripathi WBC 7.5 103/ul Normal 4.0-11.0 [facility] Comment on above: Performed By: #### C BC ####[facility] Sqjogimidm3404 [place] [address]DrKianna Tripathi PROF 14(COMP METB)on 023 Albumin [Mass/Vol] 3.5 g/dL Normal 3.4-5.0 [facility] Comment on above: Performed By: #### C MP ####[facility] Jxkxzjmkpr4515 [place] [address]DriKanna Tripathi Albumin/Globulin [Mass ratio] 1.1 {ratio} Normal [facility] Comment on above: Performed By: #### C MP ####[facility] Gtenrfrftc6349 [place] [address]DrKianna Tripathi ALP [Catalytic activity/Vol] 126 U/L Critically high 46-116 [facility] Comment on above: Performed By: #### C MP ####[facility] Qparbbhmzu0102 [place] [address]DrKianna Tripathi ALT [Catalytic activity/Vol] 18 U/L Normal 14-59 [facility] Comment on above: Performed By: #### C MP ####[facility] Ivrutugcpo[address] [place], [place] [address]DrKianna Tripathi Anion gap [Moles/Vol] 11.1 mmol/L Normal Th e [facility] Comment on above: Performed By: #### C MP ####[facility] Neecwrzbjd8[address] [place] [id number]. Airam Tripathi AST [Catalytic activity/Vol] 26 U/L Normal 15-37 [facility] Comment on above: Performed By: #### C MP ####[facility] Vthftihlld[address] [place], [place] [address]Dr. Airam Deuce Bilirubin [Mass/Vol] 0.3 mg/dL Normal 0.2-1.0 [facility] Comment on above: Performed By: #### C MP ####[facility] Fbochnofpx638524 [address] [place], [place] [address]Dr. Airam Deuce Calcium [Mass/Vol] 8.5 mg/dL Normal 8.5-10.1 [facility] Comment on above: Performed By: #### C MP ####[facility] Ypdtkjmttt463724 [address] [place], [place] [address]Dr. Airam Deuce Chloride [Moles/Vol] 98 mmol/L Normal 98-107 [facility] Comment on above: Performed By: #### C MP ####[facility] Mtppfwhhol6418[address] [place], [place] [address]Dr. Airam Deuce CO2 [Moles/Vol] 23.9 mmol/L Normal 21.0-32.0 [facility] Comment on above: Performed By: #### C MP ####[facility] Wcvsidpoip9[address] [place], [place] [address]Dr. Airam Deuce Creatinine [Mass/Vol] 1.40 mg/dL Critically high 0.55-1.02 [facility] Comment on above: Performed By: #### C MP ####[facility] Tcdtbbbumn44[address] [place], [place] [address]DrKianna Airam Deuce EGFR-AF CITIZEN OF [place] 46 mL/min/1.73m2 Critically low >=60 [facility] Comment on above: Performed By: #### C MP ####[facility] Haoyebqcjn0142[address] [place], [place] [address]Dr. Airam Tripathi EGFR-NON AF CITIZEN OF [place] 38 mL/min/1.73m2 Critically low >=60 [facility] Comment on above: Performed By: #### C MP ####[facility] Ggsfiewxnn9033 [place] [address]Dr. Airam Tripathi Globulin (S) [Mass/Vol] 3.3 g/dL Normal [facility] Comment on above: Performed By: #### C MP ####[facility] Iydbqzfeny24[address] [place], [place] [address]Dr. Airam Tripathi Glucose [Mass/Vol] 72 mg/dL Critically low 74-106 [facility] Comment on above: Performed By: #### C MP ####[facility] Wvhyzgszsp6079[address] [place], [place] [address]Dr. Airam Tripathi Potassium [Moles/Vol] 5.0 mmol/L Normal 3.5-5.1 [facility] Comment on above: Performed By: #### C MP ####[facility] Ewlvoravpr066424 [address] [place], [place] [address]Dr. Airam Tripathi Protein [Mass/Vol] 6.8 g/dL Normal 6.4-8.2 [facility] Comment on above: Performed By: #### C MP ####[facility] Llfrzotatg863[address] [place], [place] [address]Dr. Airam Tripathi Sodium [Moles/Vol] 128 mmol/L Critically low 136-145 [facility] Comment on above: Performed By: #### C MP ####[facility] Ebstufmgcg213624 [address] [place], [place] [address]Dr. Airam Tripathi Urea nitrogen [Mass/Vol] 27.0 mg/dL Critically high 7.0-18.0 [facility] Comment on above: Performed By: #### C MP ####[facility] Hqbwnljlkf0848[address] [place], [place] [address]Dr. Airam Tripathi Urea nitrogen/Creatinine [Mass ratio] 19.3 mg/mg Normal [facility] Comment on above: Performed By: #### C MP ####[facility] Ltzluoqdms33[address] [place], [place] [address]Dr. Airam Tripathi OSMOLALITYon 09-10-2022 Osmolality [Osmolality] 275 mosm/kg Normal 275-295 [facility] Comment on above: Performed By: #### O SMO ####[facility] Clgthhukbr2787[address] [place], [place] [address]Dr. Airam Tripathi CBC AUTO DIFFon 09-08-2022 BASO # 0.0 103/ul Normal 0.0-0.1 [facility] Comment on above: Performed By: #### C BC ####[facility] Egfzidopyd6801[address] [place], [place] [address]Dr. Airam Tripathi Basophils/100 WBC (Bld) 0.5 % Normal 0.2-2.0 [facility] Comment on above: Performed By: #### C BC ####[facility] Xzrnzfallz5907[address] [place], [place] [address]Dr. Airam Tripathi EO # 0.1 103/ul Normal 0.0-0.7 [facility] Comment on above: Performed By: #### C BC ####[facility] Bgqncheeja3360[address] [place], [place] [address]Dr. Airam Tripathi Eosinophils/100 WBC (Bld) 1.7 % Normal 0.9-7.0 [facility] Comment on above: Performed By: #### C BC ####[facility] Bsfcqlgolf8047[address] [place], [place] [address]Dr. Airam Tripathi Erythrocyte distribution width (RBC) [Ratio] 14.7 % Normal 11.0-15.0 [facility] Comment on above: Performed By: #### C BC ####[facility] Ggofhwtpiy[address] [place], [place] [address]Dr. Airam Tripathi Hematocrit (Bld) [Volume fraction] 30.3 % Critically low 36.0-48.0 [facility] Comment on above: Performed By: #### C BC ####[facility] Qjnkrfvsik27[address] [place], [place] [address]Dr. Airam Tripathi Hemoglobin (Bld) [Mass/Vol] 9.3 g/dL Critically low 12.0-16.0 [facility] Comment on above: Performed By: #### C BC ####[facility] Bmjwbyfvbn9606 [place] [address]Dr. Selenaneil Tripathi IG # 0.03 10e3/ul Normal 0.00-0.03 [facility] Comment on above: Performed By: #### C BC ####[facility] Fixsfjidme5836 [place] [address]Dr. Airam Tripathi IG % 0.5 % Normal 0.0-0.5 [facility] Comment on above: Performed By: #### C BC ####[facility] Xnhfvusfpe1659 [place] [address]Dr. Selenaneil Deuce LYMPH # 0.9 103/ul Critically low 1.2-3.8 [facility] Comment on above: Performed By: #### C BC ####[facility] Ohkxzyjqso[address] [place] [address]Dr. Airam Tripathi Lymphocytes/100 WBC (Bld) 13.6 % Critically low 20.5-60.0 [facility] Comment on above: Performed By: #### C BC ####[facility] Qvwlgvsoxg0935 [place] [address]Dr. Selenaneil Tripathi MANUAL DIFF REQ NO Normal [facility] Comment on above: Performed By: #### C BC ####[facility] Siypudwxnj7740 [place] [address]Dr. Airam Tripathi MCH (RBC) [Entitic mass] 27.4 pg Normal 26.7-34.0 [facility] Comment on above: Performed By: #### C BC ####[facility] Tmdmeakysq3723 [place] [address]Dr. Airam Tripathi MCHC (RBC) [Mass/Vol] 30.7 g/dL Normal 29.9-35.2 [facility] Comment on above: Performed By: #### C BC ####[facility] Ylnezgdghr8090 [place] [address]Dr. Airam Tripathi MCV (RBC) [Entitic vol] 89.4 fL Normal 81.0-99.0 [facility] Comment on above: Performed By: #### C BC ####[facility] Kipwygtqsl0[address] [place] [id number]. Airam Deuce MONO # 0.5 103/ul Normal 0.3-0.8 [facility] Comment on above: Performed By: #### C BC ####[facility] Gwwryzoybn2524 [place] [address]Dr. Selenaneil Tripathi Monocytes/100 WBC (Bld) 8.0 % Normal 1.7-12.0 [facility] Comment on above: Performed By: #### C BC ####[facility] Anfmgjplrx4395[address] [place], [place] [address]Dr. Airam Tripathi NEUT # 5.0 103/ul Normal 1.4-6.5 [facility] Comment on above: Performed By: #### C BC ####[facility] Scqyrfmvhq864[address] [place], [place] [address]Dr. Airam Tripathi Neutrophils/100 WBC (Bld) 75.7 % Critically high 43.0-75.0 [facility] Comment on above: Performed By: #### C BC ####[facility] Huuqfvqaet6[address] [place], [place] [address]Dr. Airam Deuce Platelet mean volume (Bld) [Entitic vol] 10.4 fL Normal 9.5-13.5 [facility] Comment on above: Performed By: #### C BC ####[facility] Poatlkcsqr534[address] [place], [place] [address]Dr. Airam Tripathi PLT 315 103/ul Normal 150-450 [facility] Comment on above: Performed By: #### C BC ####[facility] Bulwsldaow315[address] [place], [place] [address]Dr. Selenaneil Deuce RBC 3.39 106/ul Critically low 4.20-5.40 [facility] Comment on above: Performed By: #### C BC ####[facility] Kfhbxgjspf7[address] [place], [place] [address]Dr. Selenaneil Deuce WBC 6.5 103/ul Normal 4.0-11.0 [facility] Comment on above: Performed By: #### C BC ####[facility] Szadlxzzbt774724 [address] [place], [place] [address]Dr. Airam Tripathi PROF 14(COMP METB)on 023 Albumin [Mass/Vol] 3.1 g/dL Critically low 3.4-5.0 [facility] Comment on above: Performed By: #### C MP ####[facility] Pilhuxvjru4[address] [place] [address]Dr. Airam Tripathi Albumin/Globulin [Mass ratio] 1.0 {ratio} Normal [facility] Comment on above: Performed By: #### C MP ####[facility] Ubpxsajkmq0972 [place] [address]Dr. Airam Tripathi ALP [Catalytic activity/Vol] 126 U/L Critically high 46-116 [facility] Comment on above: Performed By: #### C MP ####[facility] Tjxggobzdu7996[address] [place], [place] [address]Dr. Airam Tripathi ALT [Catalytic activity/Vol] 18 U/L Normal 14-59 [facility] Comment on above: Performed By: #### C MP ####[facility] Lpwlasitde619524 [address] [place], [place] [address]Dr. Airam Tripathi Anion gap [Moles/Vol] 11.4 mmol/L Normal [facility] Comment on above: Performed By: #### C MP ####[facility] Jrnzsubrdk214624 [address] [place], [place] [address]Dr. Airam Tripathi AST [Catalytic activity/Vol] 25 U/L Normal 15-37 [facility] Comment on above: Performed By: #### C MP ####[facility] Tjibmvhkqs659524 [address] [place], [place] [address]DrKianna Tripathi Bilirubin [Mass/Vol] 0.3 mg/dL Normal 0.2-1.0 [facility] Comment on above: Performed By: #### C MP ####[facility] Yupfbvvjzu68[address] [place], [place] [address]Dr. Airam Tripathi Calcium [Mass/Vol] 8.6 mg/dL Normal 8.5-10.1 [facility] Comment on above: Performed By: #### C MP ####[facility] Sstkppxhjf023324 [address] [place], [place] [address]Dr. Airam Tripathi Chloride [Moles/Vol] 97 mmol/L Critically low 98-107 [facility] Comment on above: Performed By: #### C MP ####[facility] Boejqxvxsz4195 [place] [address]Dr. Airam Deuce CO2 [Moles/Vol] 26.1 mmol/L Normal 21.0-32.0 [facility] Comment on above: Performed By: #### C MP ####[facility] Ibosafoucr529524 [address] [place], [place] [address]Dr. Airam Tripathi Creatinine [Mass/Vol] 1.07 mg/dL Critically high 0.55-1.02 [facility] Comment on above: Performed By: #### C MP ####[facility] Ikrjtoelap77[address] [place], [place] [address]Dr. Airam Tripathi EGFR-AF CITIZEN [place] >60 Normal >=60 [facility] Comment on above: Performed By: #### C MP ####[facility] Bbshyekjkb786[address] [place], [place] [address]Dr. Selenaneil Deuce EGFR-NON AF CITIZEN OF [place] 52 mL/min/1.73m2 Critically low >=60 [facility] Comment on above: Performed By: #### C MP ####[facility] Tkuggwwmbu585424 [address] [place], [place] [address]Dr. Airam Tripathi Globulin (S) [Mass/Vol] 3.2 g/dL Normal [facility] Comment on above: Performed By: #### C MP ####[facility] Eiarzadgzj636224 [address] [place], [place] [address]Dr. Airam Tripathi Glucose [Mass/Vol] 83 mg/dL Normal 74-106 [facility] Comment on above: Performed By: #### C MP ####[facility] Whuxiuopan808[address] [place], [place] [address]Dr. Airam Tripathi Potassium [Moles/Vol] 5.5 mmol/L Critically high 3.5-5.1 [facility] Comment on above: Performed By: #### C MP ####[facility] Bfhzbrcjqp199924 [address] [place], [place] [address]Dr. Airam Tripathi Protein [Mass/Vol] 6.3 g/dL Critically low 6.4-8.2 [facility] Comment on above: Performed By: #### C MP ####[facility] Nppgmtgqcs109224 [address] [place], [place] [address]Dr. Airam Tripathi Sodium [Moles/Vol] 129 mmol/L Critically low 136-145 [facility] Comment on above: Performed By: #### C MP ####[facility] Cqudqjyigq2428[address] [place], [place] [address]Dr. Airam Deuce Urea nitrogen [Mass/Vol] 37.0 mg/dL Critically high 7.0-18.0 [facility] Comment on above: Performed By: #### C MP ####[facility] Swvczobgpb096[address] [place], [place] [address]Dr. Airam Deuce Urea nitrogen/Creatinine [Mass ratio] 34.6 mg/mg Normal [facility] Comment on above: Performed By: #### C MP ####[facility] Gofsedxcne3275[address] [place], [place] [address]Dr. Airam Deuce OSMOLALITYon 09-02-2022 Osmolality [Osmolality] 279 mosm/kg Normal 275-295 [facility] Comment on above: Performed By: #### O SMO ####[facility] Wsegyhgnga4942[address] [place], [place] [address]Dr. Airam Tripathi CBC AUTO DIFFon 08-31-2022 BASO # 0.0 103/ul Normal 0.0-0.1 [facility] Comment on above: Performed By: #### C BC ####[facility] Byytmavxgh119724 [address] [place], [place] [address]Dr. Airam Deuce Basophils/100 WBC (Bld) 0.4 % Normal 0.2-2.0 [facility] Comment on above: Performed By: #### C BC ####[facility] Banhmhjwkm0566[address] [place], [place] [address]Dr. Airam Tripathi EO # 0.2 103/ul Normal 0.0-0.7 [facility] Comment on above: Performed By: #### C BC ####[facility] Erarrpzgpf688[address] [place], [place] [address]Dr. Airam Tripathi Eosinophils/100 WBC (Bld) 3.2 % Normal 0.9-7.0 [facility] Comment on above: Performed By: #### C BC ####[facility] Qvhaqrzqrl6553 [place] [address]Dr. Aiarm Tripathi Erythrocyte distribution width (RBC) [Ratio] 14.4 % Normal 11.0-15.0 [facility] Comment on above: Performed By: #### C BC ####[facility] Fekejhkarl4100[address] [place], [place] [address]Dr. Airam Tripathi Hematocrit (Bld) [Volume fraction] 27.8 % Critically low 36.0-48.0 [facility] Comment on above: Performed By: #### C BC ####[facility] Ujgbyrqqri264[address] [place], [place] [address]Dr. Airam Tripathi Hemoglobin (Bld) [Mass/Vol] 8.7 g/dL Critically low 12.0-16.0 [facility] Comment on above: Performed By: #### C BC ####[facility] Fcaodbcbgp7229[address] [place], [place] [address]Dr. Airam Tripathi IG # 0.05 10e3/ul Critically high 0.00-0.03 [facility] Comment on above: Performed By: #### C BC ####[facility] Nktjucozip7080[address] [place], [place] [address]Dr. Airam Tripathi IG % 0.7 % Critically high 0.0-0.5 [facility] Comment on above: Performed By: #### C BC ####[facility] Oryvfakncc1132[address] [place], [place] [address]Dr. Airam Tripathi LYMPH # 1.7 103/ul Normal 1.2-3.8 [facility] Comment on above: Performed By: #### C BC ####[facility] Prswkqmnqi0180[address] [place], [place] [address]Dr. Airam Tripathi Lymphocytes/100 WBC (Bld) 23.6 % Normal 20.5-60.0 [facility] Comment on above: Performed By: #### C BC ####[facility] Dombnwyysp39[address] [place] [address]Dr. Airam Deuce MANUAL DIFF REQ NO Normal [facility] Comment on above: Performed By: #### C BC ####[facility] Kwmeqyhytx5267 [place] [address]Dr. Airam Tripathi MCH (RBC) [Entitic mass] 27.8 pg Normal 26.7-34.0 [facility] Comment on above: Performed By: #### C BC ####[facility] Duqjtadnnf0595 [place] [address]Dr. Airam Deuce MCHC (RBC) [Mass/Vol] 31.3 g/dL Normal 29.9-35.2 [facility] Comment on above: Performed By: #### C BC ####[facility] Dlfhhtsuwl4014 [place] [address]Dr. Selenaneil Tripathi MCV (RBC) [Entitic vol] 88.8 fL Normal 81.0-99.0 [facility] Comment on above: Performed By: #### C BC ####[facility] Iytjvvxikt6182 [place] [address]Dr. Airam Deuce MONO # 0.5 103/ul Normal 0.3-0.8 [facility] Comment on above: Performed By: #### C BC ####[facility] Xmchnxdepz4156 [place] [address]Dr. Selenaneil Tripathi Monocytes/100 WBC (Bld) 6.9 % Normal 1.7-12.0 [facility] Comment on above: Performed By: #### C BC ####[facility] Cywvpijifo0449 [place] [address]Dr. Selenaneil Deuce NEUT # 4.7 103/ul Normal 1.4-6.5 [facility] Comment on above: Performed By: #### C BC ####[facility] Oevqwhlxns1741 [place] [address]Dr. Airam Tripathi Neutrophils/100 WBC (Bld) 65.2 % Normal 43.0-75.0 [facility] Comment on above: Performed By: #### C BC ####[facility] Ftdroeoqqa3010 [place] [address]Dr. Airam Deuce Platelet mean volume (Bld) [Entitic vol] 9.8 fL Normal 9.5-13.5 [facility] Comment on above: Performed By: #### C BC ####[facility] Ruynoxhlxf75[address] [place] [address]Dr. Selenaneil Deuce PLT 225 103/ul Normal 150-450 [facility] Comment on above: Performed By: #### C BC ####[facility] Rfxqpkyasv0198 [place] [address]Dr. Airam Deuce RBC 3.13 106/ul Critically low 4.20-5.40 [facility] Comment on above: Performed By: #### C BC ####[facility] Hvwdthulzc421[address] [place], [place] [address]Dr. Selenaneil Deuce WBC 7.3 103/ul Normal 4.0-11.0 [facility] Comment on above: Performed By: #### C BC ####[facility] Qeoeouizlo6877[address] [place], [place] [address]Dr. Airam Tripathi PROF 14(COMP METB)on 023 Albumin [Mass/Vol] 3.0 g/dL Critically low 3.4-5.0 [facility] Comment on above: Performed By: #### C MP ####[facility] Pzlbdypxpw2934[address] [place], [place] [address]Dr. Airam Tripathi Albumin/Globulin [Mass ratio] 1.1 {ratio} Normal [facility] Comment on above: Performed By: #### C MP ####[facility] Amcemfvvuy4849 [place] [address]Dr. Airam Tripathi ALP [Catalytic activity/Vol] 132 U/L Critically high 46-116 [facility] Comment on above: Performed By: #### C MP ####[facility] Saiweenoeq1574[address] [place], [place] [address]Dr. Airam Tripathi ALT [Catalytic activity/Vol] 20 U/L Normal 14-59 [facility] Comment on above: Performed By: #### C MP ####[facility] Ozbdvhrqcc6764[address] [place], [place] [address]Dr. Airam Tripathi Anion gap [Moles/Vol] 9.5 mmol/L Normal [facility] Comment on above: Performed By: #### C MP ####[facility] Lqkgpaijjb7108[address] [place], [place] [address]Dr. Airam Tripathi AST [Catalytic activity/Vol] 25 U/L Normal 15-37 [facility] Comment on above: Performed By: #### C MP ####[facility] Ouetzfocav2505[address] [place], [place] [address]Dr. Airam Deuce Bilirubin [Mass/Vol] 0.2 mg/dL Normal 0.2-1.0 [facility] Comment on above: Performed By: #### C MP ####[facility] Msrfuvagfm5878[address] [place], [place] [address]Dr. Airam Tripathi Calcium [Mass/Vol] 7.9 mg/dL Critically low 8.5-10.1 [facility] Comment on above: Performed By: #### C MP ####[facility] Umzoqnstns823[address] [place], [place] [address]Dr. Airam Tripathi Chloride [Moles/Vol] 97 mmol/L Critically low 98-107 [facility] Comment on above: Performed By: #### C MP ####[facility] Mnotdtkgwn043[address] [place], [place] [address]Dr. Selenaneil Deuce CO2 [Moles/Vol] 27.3 mmol/L Normal 21.0-32.0 [facility] Comment on above: Performed By: #### C MP ####[facility] Apirjijixt8799[address] [place], [place] [address]Dr. Selenaneil Deuce Creatinine [Mass/Vol] 1.58 mg/dL Critically high 0.55-1.02 [facility] Comment on above: Performed By: #### C MP ####[facility] Gldjftydpq[address] [place], [place] [address]Dr. Selenaneil Deuce EGFR-AF CITIZEN OF [place] 40 mL/min/1.73m2 Critically low >=60 [facility] Comment on above: Performed By: #### C MP ####[facility] Rvsqeahcjt[address] [place], [place] [address]Dr. Airam Tripathi EGFR-NON AF CITIZEN OF [place] 33 mL/min/1.73m2 Critically low >=60 [facility] Comment on above: Performed By: #### C MP ####[facility] Askbehgokg4594 [place] [address]Dr. Airam Tripathi Globulin (S) [Mass/Vol] 2.8 g/dL Normal [facility] Comment on above: Performed By: #### C MP ####[facility] Pkbhqieome[address] [place], [place] [address]Dr. Airam Tripathi Glucose [Mass/Vol] 111 mg/dL Critically high 74-106 T [facility] Comment on above: Performed By: #### C MP ####[facility] Jbfqtqvrox10[address] [place], [place] [address]Dr. Airam Tripathi Potassium [Moles/Vol] 4.8 mmol/L Normal 3.5-5.1 [facility] Comment on above: Performed By: #### C MP ####[facility] Srhkkjogxz088[address] [place], [place] [address]Dr. Airam Tripathi Protein [Mass/Vol] 5.8 g/dL Critically low 6.4-8.2 Th [facility] Comment on above: Performed By: #### C MP ####[facility] Iiidhxdvky5[address] [place], [place] [address]Dr. Airam Tripathi Sodium [Moles/Vol] 129 mmol/L Critically low 136-145 Th [facility] Comment on above: Performed By: #### C MP ####[facility] Fumdnvzrwk958[address] [place], [place] [address]Dr. Airam Tripathi Urea nitrogen [Mass/Vol] 44.0 mg/dL Critically high 7.0-18.0 [facility] Comment on above: Performed By: #### C MP ####[facility] Ngdfnflyyv685[address] [place], [place] [address]Dr. Airam Tripathi Urea nitrogen/Creatinine [Mass ratio] 27.8 mg/mg Normal [facility] Comment on above: Performed By: #### C MP ####[facility] Efswdlqkdm70[address] [place], [place] [id number]. Airam Tripathi OSMOLALITYon 08-28-2022 Osmolality [Osmolality] 288 mosm/kg Normal 275-295 [facility] Comment on above: Performed By: #### O SMO ####[facility] Yrypptwwck8[address] [place] [address]Dr. Airam Tripathi CBC AUTO DIFFon 08-25-2022 BASO # 0.0 103/ul Normal 0.0-0.1 [facility] Comment on above: Performed By: #### C BC ####[facility] Igzvojgvea378[address] [place], [place] [address]Dr. Airam Deuce Basophils/100 WBC (Bld) 0.5 % Normal 0.2-2.0 [facility] Comment on above: Performed By: #### C BC ####[facility] Tcrqhgvvpd1538[address] [place], [place] [address]Dr. Airam Tripathi EO # 0.4 103/ul Normal 0.0-0.7 [facility] Comment on above: Performed By: #### C BC ####[facility] Pcyqnuvchc406[address] [place], [place] [address]Dr. Airam Tripathi Eosinophils/100 WBC (Bld) 4.8 % Normal 0.9-7.0 [facility] Comment on above: Performed By: #### C BC ####[facility] Uqxvkhqpgo0004[address] [place], [place] [address]Dr. Airam Tripathi Erythrocyte distribution width (RBC) [Ratio] 14.2 % Normal 11.0-15.0 [facility] Comment on above: Performed By: #### C BC ####[facility] Wmwwwxzbhq859124 [address] [place], [place] [address]Dr. Airam Tripathi Hematocrit (Bld) [Volume fraction] 31.1 % Critically low 36.0-48.0 [facility] Comment on above: Performed By: #### C BC ####[facility] Riqughctes7813[address] [place], [place] [address]Dr. Airam Tripathi Hemoglobin (Bld) [Mass/Vol] 9.7 g/dL Critically low 12.0-16.0 [facility] Comment on above: Performed By: #### C BC ####[facility] Erlkxweszq13[address] [place] [phone]. Airam Tripathi IG # 0.05 10e3/ul Critically high 0.00-0.03 [facility] Comment on above: Performed By: #### C BC ####[facility] Tqkdamgsny5498 [place] [phone]. Airam Tripathi IG % 0.6 % Critically high 0.0-0.5 [facility] Comment on above: Performed By: #### C BC ####[facility] Jyqksugjbf8974[address] [place], [place] [address]Dr. Airam Tripathi LYMPH # 1.7 103/ul Normal 1.2-3.8 [facility] Comment on above: Performed By: #### C BC ####[facility] Phensktdab907224 [address] [place], [place] [address]Dr. Airam Tripathi Lymphocytes/100 WBC (Bld) 19.6 % Critically low 20.5-60.0 [facility] Comment on above: Performed By: #### C BC ####[facility] Jrlzajnved9149[address] [place], [place] [address]Dr. Airam Tripathi MANUAL DIFF REQ NO Normal [facility] Comment on above: Performed By: #### C BC ####[facility] Hrxwuauiih1690[address] [place], [place] [address]Dr. Airam Tripathi MCH (RBC) [Entitic mass] 28.2 pg Normal 26.7-34.0 [facility] Comment on above: Performed By: #### C BC ####[facility] Xdqkwlcjkl111424 [address] [place], [place] [address]Dr. Airam Tripathi MCHC (RBC) [Mass/Vol] 31.2 g/dL Normal 29.9-35.2 [facility] Comment on above: Performed By: #### C BC ####[facility] Oymtrzsvdt0770[address] [place], [place] [address]Dr. Airam Tripathi MCV (RBC) [Entitic vol] 90.4 fL Normal 81.0-99.0 [facility] Comment on above: Performed By: #### C BC ####[facility] Cuaxqljzxu4540 [place] [phone]. Airam Tripathi MONO # 0.6 103/ul Normal 0.3-0.8 [facility] Comment on above: Performed By: #### C BC ####[facility] Ryhfkzvdis2032 [place] [phone]. Airam Tripathi Monocytes/100 WBC (Bld) 7.4 % Normal 1.7-12.0 [facility] Comment on above: Performed By: #### C BC ####[facility] Wybogpbxlg8964 [place] [phone]. Airam Tripathi NEUT # 5.8 103/ul Normal 1.4-6.5 [facility] Comment on above: Performed By: #### C BC ####[facility] Hogpymxmyx9874[address] [place], [place] [address]Dr. Airam Tripathi Neutrophils/100 WBC (Bld) 67.1 % Normal 43.0-75.0 [facility] Comment on above: Performed By: #### C BC ####[facility] Zzdnovlzbd6974 [place] [address]Dr. Airam Tripathi Platelet mean volume (Bld) [Entitic vol] 9.9 fL Normal 9.5-13.5 [facility] Comment on above: Performed By: #### C BC ####[facility] Kyuildhbbl7101 [place] [phone]. Airam Tripathi PLT 320 103/ul Normal 150-450 [facility] Comment on above: Performed By: #### C BC ####[facility] Jtveggnrjs05[address] [place], [place] [address]Dr. Airam Tripathi RBC 3.44 106/ul Critically low 4.20-5.40 [facility] Comment on above: Performed By: #### C BC ####[facility] Vfiuwtaguq3452 [place] [address]Dr. Airam Tripathi WBC 8.6 103/ul Normal 4.0-11.0 [facility] Comment on above: Performed By: #### C BC ####[facility] Ccpzcjzttn2906[address] [place], [place] [address]Dr. Airam Tripathi PROF 14(COMP METB)on 023 Albumin [Mass/Vol] 3.4 g/dL Normal 3.4-5.0 [facility] Comment on above: Performed By: #### C MP ####[facility] Ttuviznyjm2688 [place] [address]Dr. Airam Tripathi Albumin/Globulin [Mass ratio] 1.1 {ratio} Normal [facility] Comment on above: Performed By: #### C MP ####[facility] Klkmpaeqsk9527[address] [place], [place] [address]Dr. Airam Tripathi ALP [Catalytic activity/Vol] 170 U/L Critically high 46-116 [facility] Comment on above: Performed By: #### C MP ####[facility] Setgaxullf8134[address] [place], [place] [address]Dr. Airam Tripathi ALT [Catalytic activity/Vol] 22 U/L Normal 14-59 [facility] Comment on above: Performed By: #### C MP ####[facility] Ubuzbmgnve2905[address] [place], [place] [address]Dr. Airam Tripathi Anion gap [Moles/Vol] 14.4 mmol/L Normal [facility] Comment on above: Performed By: #### C MP ####[facility] Yxxflucwhe9656[address] [place], [place] [address]Dr. Airam Tripathi AST [Catalytic activity/Vol] 25 U/L Normal 15-37 [facility] Comment on above: Performed By: #### C MP ####[facility] Obitlnboic1955[address] [place], [place] [address]Dr. Airam Tripathi Bilirubin [Mass/Vol] 0.3 mg/dL Normal 0.2-1.0 [facility] Comment on above: Performed By: #### C MP ####[facility] Yncmfmtwiw1756[address] [place], [place] [address]Dr. Airam Tripathi Calcium [Mass/Vol] 8.2 mg/dL Critically low 8.5-10.1 [facility] Comment on above: Performed By: #### C MP ####[facility] Fenaifpyms6385 [place] [phone]. Airam Tripathi Chloride [Moles/Vol] 98 mmol/L Normal 98-107 [facility] Comment on above: Performed By: #### C MP ####[facility] Xrbdbrjrjw1774 [place] [phone]. Airam Tripathi CO2 [Moles/Vol] 27.8 mmol/L Normal 21.0-32.0 [facility] Comment on above: Performed By: #### C MP ####[facility] Uirbwcmrpd1827 [place] [address]Dr. Airam Tripathi Creatinine [Mass/Vol] 1.82 mg/dL Critically high 0.55-1.02 [facility] Comment on above: Performed By: #### C MP ####[facility] Ujagihcwho7377 [place] [address]Dr. Airam Deuce EGFR-AF CITIZEN OF [place] 34 mL/min/1.73m2 Critically low >=60 [facility] Comment on above: Performed By: #### C MP ####[facility] Ycfcfpewti5[address] [place], [place] [address]Dr. Airam Tripathi EGFR-NON AF CITIZEN OF [place] 28 mL/min/1.73m2 Critically low >=60 [facility] Comment on above: Performed By: #### C MP ####[facility] Eonedbwafj4010 [place] [address]Dr. Airam Tripathi Globulin (S) [Mass/Vol] 3.2 g/dL Normal [facility] Comment on above: Performed By: #### C MP ####[facility] Wkhiaadzvg1330 [place] [address]Dr. Airam Tripathi Glucose [Mass/Vol] 78 mg/dL Normal 74-106 [facility] Comment on above: Performed By: #### C MP ####[facility] Ohtirczdcd1742 [place] [address]Dr. Airam Tripathi Potassium [Moles/Vol] 5.2 mmol/L Critically high 3.5-5.1 [facility] Comment on above: Performed By: #### C MP ####[facility] Olitvkvzzd7079 [place] [phone]. Airam Tripathi Protein [Mass/Vol] 6.6 g/dL Normal 6.4-8.2 [facility] Comment on above: Performed By: #### C MP ####[facility] Sovucunhgb7283 [place] [address]Dr. Airam Tripathi Sodium [Moles/Vol] 135 mmol/L Critically low 136-145 Th [facility] Comment on above: Performed By: #### C MP ####[facility] Cvyphoyinz73[address] [place], [place] [address]Dr. Airam Tripathi Urea nitrogen [Mass/Vol] 51.0 mg/dL Critically high 7.0-18.0 [facility] Comment on above: Performed By: #### C MP ####[facility] Uzmoeucgps2696[address] [place], [place] [address]Dr. Airam Tripathi Urea nitrogen/Creatinine [Mass ratio] 28.0 mg/mg Normal [facility] Comment on above: Performed By: #### C MP ####[facility] Bdtyfkthxp4926[address] [place], [place] [address]Dr. Airam Tripathi OSMOLALITYon 08-18-2022 Osmolality [Osmolality] 280 mosm/kg Normal 275-295 [facility] Comment on above: Performed By: #### O SMO ####[facility] Cgfhkozpuh[address] [place], [place] [address]Dr. Airam Tripathi CBC AUTO DIFFon 08-16-2022 BASO # 0.0 103/ul Normal 0.0-0.1 [facility] Comment on above: Performed By: #### C BC ####[facility] Ycezxydjla3169[address] [place], [place] [address]Dr. Airam Deuce Basophils/100 WBC (Bld) 0.2 % Normal 0.2-2.0 [facility] Comment on above: Performed By: #### C BC ####[facility] Crkbnvxlqp1460[address] [place], [place] [address]Dr. Airam Deuce EO # 0.2 103/ul Normal 0.0-0.7 [facility] Comment on above: Performed By: #### C BC ####[facility] Deposvrasv3709 [place] [address]Dr. Airam Tripathi Eosinophils/100 WBC (Bld) 2.4 % Normal 0.9-7.0 [facility] Comment on above: Performed By: #### C BC ####[facility] Bzdmificat4987 [place] [address]Dr. Airam Tripathi Erythrocyte distribution width (RBC) [Ratio] 14.2 % Normal 11.0-15.0 [facility] Comment on above: Performed By: #### C BC ####[facility] Gljwvqycvs2120[address] [place], [place] [address]Dr. Airam Tripathi Hematocrit (Bld) [Volume fraction] 30.1 % Critically low 36.0-48.0 [facility] Comment on above: Performed By: #### C BC ####[facility] Lvxvapdpzi1719[address] [place], [place] [address]Dr. Airam Tripathi Hemoglobin (Bld) [Mass/Vol] 9.2 g/dL Critically low 12.0-16.0 [facility] Comment on above: Performed By: #### C BC ####[facility] Apspmjuhbl8[address] [place], [place] [address]Dr. Airam Tripathi IG # 0.04 10e3/ul Critically high 0.00-0.03 [facility] Comment on above: Performed By: #### C BC ####[facility] Btygclvtyg468[address] [place], [place] [address]Dr. Airam Tripathi IG % 0.4 % Normal 0.0-0.5 [facility] Comment on above: Performed By: #### C BC ####[facility] Bpbepkqgvo402124 [address] [place], [place] [address]Dr. Airam Tripathi LYMPH # 0.9 103/ul Critically low 1.2-3.8 [facility] Comment on above: Performed By: #### C BC ####[facility] Rvbqntwrjq844[address] [place], [place] [address]Dr. Airam Tripathi Lymphocytes/100 WBC (Bld) 9.3 % Critically low 20.5-60.0 [facility] Comment on above: Performed By: #### C BC ####[facility] Oznhcstkqx6454 [place] [phone]. Selenaneil Tripathi MANUAL DIFF REQ NO Normal [facility] Comment on above: Performed By: #### C BC ####[facility] Vtzqbspzkk9802 [place] [phone]. Airam Tripathi MCH (RBC) [Entitic mass] 27.7 pg Normal 26.7-34.0 [facility] Comment on above: Performed By: #### C BC ####[facility] Bgkrriehbf4790 [place] [phone]. Selenaneil Tripathi MCHC (RBC) [Mass/Vol] 30.6 g/dL Normal 29.9-35.2 [facility] Comment on above: Performed By: #### C BC ####[facility] Qbtpkctzqk622924 [address] [place], [place] [address]Dr. Airam Tripathi MCV (RBC) [Entitic vol] 90.7 fL Normal 81.0-99.0 [facility] Comment on above: Performed By: #### C BC ####[facility] Ymrnsvxjwv8[address] [place], [place] [address]Dr. Airam Tripathi MONO # 0.5 103/ul Normal 0.3-0.8 [facility] Comment on above: Performed By: #### C BC ####[facility] Riigroayem0789[address] [place], [place] [address]Dr. Airam Tripathi Monocytes/100 WBC (Bld) 5.3 % Normal 1.7-12.0 [facility] Comment on above: Performed By: #### C BC ####[facility] Dznsqqktsw55[address] [place], [place] [address]Dr. Airam Tripathi NEUT # 7.7 103/ul Critically high 1.4-6.5 [facility] Comment on above: Performed By: #### C BC ####[facility] Wqptqvtvkm2266[address] [place], [place] [address]Dr. Airam Tripathi Neutrophils/100 WBC (Bld) 82.4 % Critically high 43.0-75.0 [facility] Comment on above: Performed By: #### C BC ####[facility] Wosgoytpyr4771 [place] [address]Dr. Selenaneil Tripathi Platelet mean volume (Bld) [Entitic vol] 9.8 fL Normal 9.5-13.5 [facility] Comment on above: Performed By: #### C BC ####[facility] Tebeqtbopc0718 [place] [address]Dr. Selenaneil Deuce PLT 285 103/ul Normal 150-450 [facility] Comment on above: Performed By: #### C BC ####[facility] Pigevuqbdx3258 [place] [address]Dr. Selenaneil Deuce RBC 3.32 106/ul Critically low 4.20-5.40 [facility] Comment on above: Performed By: #### C BC ####[facility] Gndrqtigjj10[address] [place], [place] [address]Dr. Airam Tripathi WBC 9.4 103/ul Normal 4.0-11.0 [facility] Comment on above: Performed By: #### C BC ####[facility] Xddftvqsum1858[address] [place], [place] [address]Dr. Airam Tripathi MRI WRIST RT WO CONon 2022 MRI WRIST RT WO CON Normal [facility] PROF 14(COMP METB)on 023 Albumin [Mass/Vol] 3.1 g/dL Critically low 3.4-5.0 [facility] Comment on above: Performed By: #### C MP ####[facility] Hwtjzmypbo97[address] [place], [place] [address]Dr. Airam Tripathi Albumin/Globulin [Mass ratio] 0.9 {ratio} Normal [facility] Comment on above: Performed By: #### C MP ####[facility] Rapjomqmyk9076[address] [place], [place] [address]Dr. Airam Tripathi ALP [Catalytic activity/Vol] 162 U/L Critically high 46-116 [facility] Comment on above: Performed By: #### C MP ####[facility] Cqwjmkrecb044[address] [place], [place] [address]Dr. Airam Tripathi ALT [Catalytic activity/Vol] 19 U/L Normal 14-59 [facility] Comment on above: Performed By: #### C MP ####[facility] Qmbrhyhnsj9791 [place] [address]Dr. Airam Tripathi Anion gap [Moles/Vol] 13.0 mmol/L Normal [facility] Comment on above: Performed By: #### C MP ####[facility] Knzigzurdh6129[address] [place], [place] [address]Dr. Airam Tripathi AST [Catalytic activity/Vol] 21 U/L Normal 15-37 [facility] Comment on above: Performed By: #### C MP ####[facility] Cupootqsfr431[address] [place], [place] [address]Dr. Airam Tripathi Bilirubin [Mass/Vol] 0.3 mg/dL Normal 0.2-1.0 [facility] Comment on above: Performed By: #### C MP ####[facility] Iypjfppeqk0701[address] [place], [place] [address]Dr. Selenaneil Deuce Calcium [Mass/Vol] 8.4 mg/dL Critically low 8.5-10.1 [facility] Comment on above: Performed By: #### C MP ####[facility] Bhfrjwrdku65[address] [place], [place] [address]Dr. Airam Tripathi Chloride [Moles/Vol] 103 mmol/L Normal 98-107 [facility] Comment on above: Performed By: #### C MP ####[facility] Agxgwxxvsz8259[address] [place], [place] [address]Dr. Airam Deuce CO2 [Moles/Vol] 23.3 mmol/L Normal 21.0-32.0 [facility] Comment on above: Performed By: #### C MP ####[facility] Vubofhvjai[address] [place], [place] [address]Dr. Airam Tripathi Creatinine [Mass/Vol] 1.02 mg/dL Normal 0.55-1.02 [facility] Comment on above: Performed By: #### C MP ####[facility] Pvedlxireg[address] [place], [place] [address]Dr. Airam Tripathi EGFR-AF CITIZEN OF [place] >60 Normal >=60 [facility] Comment on above: Performed By: #### C MP ####[facility] Apgxrbkron1397 [place] [phone]. Airam Tripathi EGFR-NON AF CITIZEN OF [place] 55 mL/min/1.73m2 Critically low >=60 [facility] Comment on above: Performed By: #### C MP ####[facility] Sjcqhiuzzp1461 [place] [phone]. Airam Tripathi Globulin (S) [Mass/Vol] 3.4 g/dL Normal [facility] Comment on above: Performed By: #### C MP ####[facility] Wifcnsihbd2949 [place] [phone]. Airam Tripathi Glucose [Mass/Vol] 88 mg/dL Normal 74-106 [facility] Comment on above: Performed By: #### C MP ####[facility] Mcwckpiqxr8492 [place] [phone]. Airam Tripathi Potassium [Moles/Vol] 4.3 mmol/L Normal 3.5-5.1 [facility] Comment on above: Performed By: #### C MP ####[facility] Ovgbrvsxzy9063 [place] [phone]. Airam Tripathi Protein [Mass/Vol] 6.5 g/dL Normal 6.4-8.2 [facility] Comment on above: Performed By: #### C MP ####[facility] Wmqlpgoxgu3986 [place] [phone]. Airam Tripathi Sodium [Moles/Vol] 135 mmol/L Critically low 136-145 [facility] Comment on above: Performed By: #### C MP ####[facility] Exbxtcrsrk9658 [place] [phone]. Airam Tripathi Urea nitrogen [Mass/Vol] 27.0 mg/dL Critically high 7.0-18.0 [facility] Comment on above: Performed By: #### C MP ####[facility] Bpmygzgwjr9132 [place] [phone]. Airam Deuce Urea nitrogen/Creatinine [Mass ratio] 26.5 mg/mg Normal [facility] Comment on above: Performed By: #### C MP ####[facility] Fsmmueysok7394 [place] [phone]. Airam Deuce CT HEAD WO CONon 08-06-2022 CT HEAD WO CON Normal [facility] CT LSPINE WO CONon 3 CT LSPINE WO CON Normal [facility] XR HAND RT MIN 3Von 08-06-19 23 XR HAND RT MIN 3V Normal [facility] XR KNEE LT 4V or >on 023 XR KNEE LT 4V or > Normal [facility] XR WRIST RT MIN 3 Von 2022 XR WRIST RT MIN 3 V Normal [facility] OSMOLALITYon 08-05-2022 Osmolality [Osmolality] 282 mosm/kg Normal 275-295 [facility] Comment on above: Performed By: #### O SMO ####[facility] Nxippqjjog7[address] [place], [place] [address]Dr. Selenaneil Tripathi CBC AUTO DIFFon 08-03-2022 BASO # 0.0 103/ul Normal 0.0-0.1 [facility] Comment on above: Performed By: #### C BC ####[facility] Ydhnswwqdx9134 [place] [address]Dr. Airam Tripathi Basophils/100 WBC (Bld) 0.5 % Normal 0.2-2.0 [facility] Comment on above: Performed By: #### C BC ####[facility] Ndjhlyhrtq7154 [place] [address]Dr. Airam Tripathi EO # 0.5 103/ul Normal 0.0-0.7 [facility] Comment on above: Performed By: #### C BC ####[facility] Kxvfjrzxon5127 [place] [address]Dr. Airam Tripathi Eosinophils/100 WBC (Bld) 5.2 % Normal 0.9-7.0 [facility] Comment on above: Performed By: #### C BC ####[facility] Eorgqwefea9677 [place] [address]Dr. Airam Tripathi Erythrocyte distribution width (RBC) [Ratio] 14.3 % Normal 11.0-15.0 [facility] Comment on above: Performed By: #### C BC ####[facility] Lvaxlgylds7379 [place] [address]Dr. Airam Tripathi Hematocrit (Bld) [Volume fraction] 31.4 % Critically low 36.0-48.0 [facility] Comment on above: Performed By: #### C BC ####[facility] Sopjobddnf[address] [place], [place] [address]DrKianna Tripathi Hemoglobin (Bld) [Mass/Vol] 9.5 g/dL Critically low 12.0-16.0 [facility] Comment on above: Performed By: #### C BC ####[facility] Kirufiiscu[address] [place], [place] [address]DrKianna Tripathi IG # 0.05 10e3/ul Critically high 0.00-0.03 [facility] Comment on above: Performed By: #### C BC ####[facility] Ordmdatkhi[address] [place], [place] [address]DrKianna Tripathi IG % 0.6 % Critically high 0.0-0.5 [facility] Comment on above: Performed By: #### C BC ####[facility] Xpxanpkatv16[address] [place], [place] [address]DrKianna Tripathi LYMPH # 1.5 103/ul Normal 1.2-3.8 [facility] Comment on above: Performed By: #### C BC ####[facility] Ejgfmtkqil[address] [place], [place] [address]DrKianna Tripathi Lymphocytes/100 WBC (Bld) 17.6 % Critically low 20.5-60.0 The [facility] Comment on above: Performed By: #### C BC ####[facility] Vefqbtpykp[address] [place], [place] [address]DrKianna Tripathi MANUAL DIFF REQ NO Normal [facility] Comment on above: Performed By: #### C BC ####[facility] Sfsnnnvtwj24[address] [place], [place] [address]DrKianna Tripathi MCH (RBC) [Entitic mass] 29.0 pg Normal 26.7-34.0 [facility] Comment on above: Performed By: #### C BC ####[facility] Ydhmgjetkd97[address] [place] [address]Dr. Selenaneil Deuce MCHC (RBC) [Mass/Vol] 30.3 g/dL Normal 29.9-35.2 [facility] Comment on above: Performed By: #### C BC ####[facility] Mqhswtinlb1585 [place] [address]Dr. Airam Tripathi MCV (RBC) [Entitic vol] 95.7 fL Normal 81.0-99.0 [facility] Comment on above: Performed By: #### C BC ####[facility] Srljgltodk9[address] [place], [place] [address]Dr. Airam Tripathi MONO # 0.7 103/ul Normal 0.3-0.8 The [facility] Comment on above: Performed By: #### C BC ####[facility] Iuzmdlwifd25[address] [place], [place] [address]Dr. Airam Tripathi Monocytes/100 WBC (Bld) 8.5 % Normal 1.7-12.0 The [facility] Comment on above: Performed By: #### C BC ####[facility] Osttkstuxo[address] [place], [place] [address]Dr. Airam Tripathi NEUT # 5.8 103/ul Normal 1.4-6.5 The [facility] Comment on above: Performed By: #### C BC ####[facility] Icpbnipgib[address] [place], [place] [address]Dr. Airam Tripathi Neutrophils/100 WBC (Bld) 67.6 % Normal 43.0-75.0 The [facility] Comment on above: Performed By: #### C BC ####[facility] Iyosmglluw1176[address] [place], [place] [address]Dr. Airam Tripathi Platelet mean volume (Bld) [Entitic vol] 9.5 fL Normal 9.5-13.5 The [facility] Comment on above: Performed By: #### C BC ####[facility] Gdaltpdxzr7355[address] [place], [place] [address]Dr. Airam Tripathi PLT 292 103/ul Normal 150-450 [facility] Comment on above: Performed By: #### C BC ####[facility] Petqrrqapx9658 [place] [address]Dr. Airam Tripathi RBC 3.28 106/ul Critically low 4.20-5.40 [facility] Comment on above: Performed By: #### C BC ####[facility] Hwpedhyztl0059 [place] [phone]. Airam Tripathi WBC 8.6 103/ul Normal 4.0-11.0 [facility] Comment on above: Performed By: #### C BC ####[facility] Ieptewkzoo6192 [place] [address]DrKianna Tripathi PROF 14(COMP METB)on 023 Albumin [Mass/Vol] 3.0 g/dL Critically low 3.4-5.0 [facility] Comment on above: Performed By: #### C MP ####[facility] Hqxsgpumtc6098 [place] [address]DrKianna Tripathi Albumin/Globulin [Mass ratio] 0.9 {ratio} Normal [facility] Comment on above: Performed By: #### C MP ####[facility] Eaywtyfzbn4798 [place] [address]Dr. Airam Tripathi ALP [Catalytic activity/Vol] 184 U/L Critically high 46-116 [facility] Comment on above: Performed By: #### C MP ####[facility] Puqzrxrdjk3806 [place] [address]Dr. Airam Tripathi ALT [Catalytic activity/Vol] 18 U/L Normal 14-59 [facility] Comment on above: Performed By: #### C MP ####[facility] Vjrgbjkqfd3510 [place] [phone] Tripathi Anion gap [Moles/Vol] 11.2 mmol/L Normal [facility] Comment on above: Performed By: #### C MP ####[facility] Tahwuptotj0119 [place] [address]Dr. Airam Tripathi AST [Catalytic activity/Vol] 19 U/L Normal 15-37 [facility] Comment on above: Performed By: #### C MP ####[facility] Jifompcpng0708 [place] [address]Dr. Airam Tripathi Bilirubin [Mass/Vol] 0.3 mg/dL Normal 0.2-1.0 The [facility] Comment on above: Performed By: #### C MP ####[facility] Vanmidbpgi6853 [place] [address]Dr. Airam Tripathi Calcium [Mass/Vol] 8.8 mg/dL Normal 8.5-10.1 The [facility] Comment on above: Performed By: #### C MP ####[facility] Kagjmwvcnz1230[address] [place], [place] [address]Dr. Airam Tripathi Chloride [Moles/Vol] 101 mmol/L Normal 98-107 The [facility] Comment on above: Performed By: #### C MP ####[facility] Rkqayhnpta799824 [address] [place], [place] [address]Dr. Airam Tripathi CO2 [Moles/Vol] 25.4 mmol/L Normal 21.0-32.0 The [facility] Comment on above: Performed By: #### C MP ####[facility] Xmbmjiojpt5789[address] [place], [place] [address]Dr. Airam Tripathi Creatinine [Mass/Vol] 1.05 mg/dL Critically high 0.55-1.02 [facility] Comment on above: Performed By: #### C MP ####[facility] Irkksfxxde4090[address] [place], [place] [address]Dr. Airam Deuce EGFR-AF CITIZEN OF [place] >60 Normal >=60 The [facility] Comment on above: Performed By: #### C MP ####[facility] Dijximysit501[address] [place], [place] [address]Dr. Selenaneil Deuce EGFR-NON AF CITIZEN OF [place] 53 mL/min/1.73m2 Critically low >=60 The [facility] Comment on above: Performed By: #### C MP ####[facility] Dlsocvbcmt3685[address] [place], [place] [address]Dr. Airam Tripathi Globulin (S) [Mass/Vol] 3.4 g/dL Normal [facility] Comment on above: Performed By: #### C MP ####[facility] Bsvpzwupli7111 [place] [address]Dr. Airam Tripathi Glucose [Mass/Vol] 78 mg/dL Normal 74-106 [facility] Comment on above: Performed By: #### C MP ####[facility] Ecrbxnycip2946 [place] [address]Dr. Airam Tripathi Potassium [Moles/Vol] 4.6 mmol/L Normal 3.5-5.1 [facility] Comment on above: Performed By: #### C MP ####[facility] Tzqnlyrojw7837 [place] [address]Dr. Airam Tripathi Protein [Mass/Vol] 6.4 g/dL Normal 6.4-8.2 [facility] Comment on above: Performed By: #### C MP ####[facility] Zvdvkjfcpr0158[address] [place], [place] [address]Dr. Airam Deuce Sodium [Moles/Vol] 133 mmol/L Critically low 136-145 [facility] Comment on above: Performed By: #### C MP ####[facility] Cizhipoxnk635[address] [place], [place] [address]Dr. Airam Deuce Urea nitrogen [Mass/Vol] 26.0 mg/dL Critically high 7.0-18.0 [facility] Comment on above: Performed By: #### C MP ####[facility] Guhhbmbwun5735[address] [place], [place] [address]Dr. Airam Deuce Urea nitrogen/Creatinine [Mass ratio] 24.8 mg/mg Normal [facility] Comment on above: Performed By: #### C MP ####[facility] Soeovpbsdk2554[address] [place], [place] [address]Dr. Airam Deuce OSMOLALITYon 07-29-2022 Osmolality [Osmolality] 287 mosm/kg Normal 275-295 [facility] Comment on above: Performed By: #### O SMO ####[facility] Reiykqjtsp1028[address] [place], [place] [address]Dr. Airam Deuce CBC AUTO DIFFon 07-27-2022 BASO # 0.0 103/ul Normal 0.0-0.1 The [facility] Comment on above: Performed By: #### C BC ####[facility] Dxygbgokyy5867 [place] [address]Dr. Airam Tripathi Basophils/100 WBC (Bld) 0.4 % Normal 0.2-2.0 The [facility] Comment on above: Performed By: #### C BC ####[facility] Fusqljhltb715824 [address] [place], [place] [address]Dr. Airam Tripathi EO # 0.2 103/ul Normal 0.0-0.7 The [facility] Comment on above: Performed By: #### C BC ####[facility] Tofbpucuna192524 [address] [place], [place] [address]Dr. Airam Tripathi Eosinophils/100 WBC (Bld) 2.6 % Normal 0.9-7.0 The [facility] Comment on above: Performed By: #### C BC ####[facility] Bwrxwvnijx242[address] [place], [place] [address]Dr. Airam Tripathi Erythrocyte distribution width (RBC) [Ratio] 14.2 % Normal 11.0-15.0 [facility] Comment on above: Performed By: #### C BC ####[facility] Omdrpobecp9[address] [place], [place] [address]Dr. Airam Tripathi Hematocrit (Bld) [Volume fraction] 31.3 % Critically low 36.0-48.0 [facility] Comment on above: Performed By: #### C BC ####[facility] Tqfodjnkae2149[address] [place], [place] [address]Dr. Airam Tripathi Hemoglobin (Bld) [Mass/Vol] 9.3 g/dL Critically low 12.0-16.0 The [facility] Comment on above: Performed By: #### C BC ####[facility] Ugdyeqqqhs1436[address] [place], [place] [address]Dr. Airam Tripathi IG # 0.05 10e3/ul Critically high 0.00-0.03 [facility] Comment on above: Performed By: #### C BC ####[facility] Rwptbeehns8268[address] [place], [place] [address]Dr. Airam Tripathi IG % 0.7 % Critically high 0.0-0.5 [facility] Comment on above: Performed By: #### C BC ####[facility] Fawkzcvtun3831 [place] [address]Dr. Airam Tripathi LYMPH # 1.0 103/ul Critically low 1.2-3.8 [facility] Comment on above: Performed By: #### C BC ####[facility] Betmryvjwn6909 [place] [address]Dr. Airam Tripathi Lymphocytes/100 WBC (Bld) 13.4 % Critically low 20.5-60.0 [facility] Comment on above: Performed By: #### C BC ####[facility] Avghfxuvxi2798[address] [place], [place] [address]Dr. Airam Tripathi MANUAL DIFF REQ NO Normal [facility] Comment on above: Performed By: #### C BC ####[facility] Glhiicuaom7714[address] [place], [place] [address]Dr. Airam Tripathi MCH (RBC) [Entitic mass] 28.8 pg Normal 26.7-34.0 [facility] Comment on above: Performed By: #### C BC ####[facility] Tcnyekglzk8716[address] [place], [place] [address]Dr. Airam Tripathi MCHC (RBC) [Mass/Vol] 29.7 g/dL Critically low 29.9-35.2 The [facility] Comment on above: Performed By: #### C BC ####[facility] Umfqwiwsmc3725[address] [place], [place] [address]Dr. Airam Tripathi MCV (RBC) [Entitic vol] 96.9 fL Normal 81.0-99.0 The [facility] Comment on above: Performed By: #### C BC ####[facility] Qibanfprnv364[address] [place], [place] [address]DrKianna Tripathi MONO # 0.5 103/ul Normal 0.3-0.8 [facility] Comment on above: Performed By: #### C BC ####[facility] Zzijqyuwgn6[address] [place], [place] [address]Dr. Airam Tripathi Monocytes/100 WBC (Bld) 6.3 % Normal 1.7-12.0 [facility] Comment on above: Performed By: #### C BC ####[facility] Dxsvmptzkn6778 [place] [address]Dr. Selenaneil Tripathi NEUT # 5.8 103/ul Normal 1.4-6.5 [facility] Comment on above: Performed By: #### C BC ####[facility] Oecuklrgji3772 [place] [address]Dr. Airam Tripathi Neutrophils/100 WBC (Bld) 76.6 % Critically high 43.0-75.0 [facility] Comment on above: Performed By: #### C BC ####[facility] Cmdwvplnye6641 [place] [address]Dr. Airam Tripathi Platelet mean volume (Bld) [Entitic vol] 10.3 fL Normal 9.5-13.5 [facility] Comment on above: Performed By: #### C BC ####[facility] Cndcqtpstx1065[address] [place], [place] [address]Dr. Airam Tripathi PLT 265 103/ul Normal 150-450 [facility] Comment on above: Performed By: #### C BC ####[facility] Ctgmjxzprp283[address] [place], [place] [address]Dr. Airam Tripathi RBC 3.23 106/ul Critically low 4.20-5.40 [facility] Comment on above: Performed By: #### C BC ####[facility] Znmqvlydio2230[address] [place], [place] [address]Dr. Airam Tripathi WBC 7.6 103/ul Normal 4.0-11.0 [facility] Comment on above: Performed By: #### C BC ####[facility] Kxmlqcsobw7479 [place] [address]DrKianna Tripathi PROF 14(COMP METB)on 023 Albumin [Mass/Vol] 2.9 g/dL Critically low 3.4-5.0 [facility] Comment on above: Performed By: #### C MP ####[facility] Fbadjaslyh7209[address] [place], [place] [address]DrKianna Tripathi Albumin/Globulin [Mass ratio] 0.8 {ratio} Normal [facility] Comment on above: Performed By: #### C MP ####[facility] Jhvmprekez9746 [place] [address]Dr. Airam Tripathi ALP [Catalytic activity/Vol] 175 U/L Critically high 46-116 [facility] Comment on above: Performed By: #### C MP ####[facility] Jdjbwcrudf6827 [place] [address]Dr. Airam Tripathi ALT [Catalytic activity/Vol] 24 U/L Normal 14-59 [facility] Comment on above: Performed By: #### C MP ####[facility] Yjlramklqj4268[address] [place], [place] [address]Dr. Airam Tripathi Anion gap [Moles/Vol] 14.3 mmol/L Normal Th e [facility] Comment on above: Performed By: #### C MP ####[facility] Nbahdwddrg581924 [address] [place], [place] [address]Dr. Airam Deuce AST [Catalytic activity/Vol] 25 U/L Normal 15-37 [facility] Comment on above: Performed By: #### C MP ####[facility] Hkigoyggnl2625[address] [place], [place] [address]Dr. Airam Deuce Bilirubin [Mass/Vol] 0.2 mg/dL Normal 0.2-1.0 [facility] Comment on above: Performed By: #### C MP ####[facility] Isjheyzrxg549[address] [place], [place] [address]Dr. Airam Deuce Calcium [Mass/Vol] 8.6 mg/dL Normal 8.5-10.1 [facility] Comment on above: Performed By: #### C MP ####[facility] Rwbhzzlkjq6027[address] [place], [place] [address]Dr. Airam Tripathi Chloride [Moles/Vol] 102 mmol/L Normal 98-107 [facility] Comment on above: Performed By: #### C MP ####[facility] Owjnapdcvj919[address] [place], [place] [address]Dr. Airam Tripathi CO2 [Moles/Vol] 23.7 mmol/L Normal 21.0-32.0 [facility] Comment on above: Performed By: #### C MP ####[facility] Zkscegnyjg9797 [place] [phone]. Airam Tripathi Creatinine [Mass/Vol] 1.29 mg/dL Critically high 0.55-1.02 [facility] Comment on above: Performed By: #### C MP ####[facility] Jgflwviswi2816 [place] [phone]. Airam Deuce EGFR-AF CITIZEN OF [place] 51 mL/min/1.73m2 Critically low >=60 [facility] Comment on above: Performed By: #### C MP ####[facility] Vjzphhpgxl3776 [place] [phone]. Airam eDuce EGFR-NON AF CITIZEN OF [place] 42 mL/min/1.73m2 Critically low >=60 [facility] Comment on above: Performed By: #### C MP ####[facility] Utskjomuhc7210 [place] [address]Dr. Airam Deuce Globulin (S) [Mass/Vol] 3.6 g/dL Normal [facility] Comment on above: Performed By: #### C MP ####[facility] Pmjhvfdhzs9385 [place] [address]Dr. Airam Deuce Glucose [Mass/Vol] 84 mg/dL Normal 74-106 [facility] Comment on above: Performed By: #### C MP ####[facility] Xynwwfmatz1249[address] [place], [place] [address]Dr. Selenaneil Tripathi Potassium [Moles/Vol] 5.0 mmol/L Normal 3.5-5.1 The [facility] Comment on above: Performed By: #### C MP ####[facility] Xaesbcsttx4540 [place] [phone]. Selenaneil Tripathi Protein [Mass/Vol] 6.5 g/dL Normal 6.4-8.2 The [facility] Comment on above: Performed By: #### C MP ####[facility] Fkqjgobkfx3092 [place] [phone]. Airam Tripathi Sodium [Moles/Vol] 135 mmol/L Critically low 136-145 [facility] Comment on above: Performed By: #### C MP ####[facility] Uncmppldyl2811 [place] [address]Dr. Airam Tripathi Urea nitrogen [Mass/Vol] 28.0 mg/dL Critically high 7.0-18.0 [facility] Comment on above: Performed By: #### C MP ####[facility] Eqrdswfjie919[address] [place], [place] [address]Dr. Airam Tripathi Urea nitrogen/Creatinine [Mass ratio] 21.7 mg/mg Normal [facility] Comment on above: Performed By: #### C MP ####[facility] Cwbbvawnmf3032[address] [place], [place] [address]Dr. Airam Tripathi XR LSPINE MIN 4 VIEWSon 02-0 XR LSPINE MIN 4 VIEWS Normal [facility] OSMOLALITYon 07-24-2022 Osmolality [Osmolality] 279 mosm/kg Normal 275-295 [facility] Comment on above: Performed By: #### O SMO ####[facility] Rssnpkmdcq[address] [place], [place] [address]Dr. Airam Tripathi CBC AUTO DIFFon 07-21-2022 BASO # 0.0 103/ul Normal 0.0-0.1 The [facility] Comment on above: Performed By: #### C BC ####[facility] Ofqhycymso6756[address] [place], [place] [address]Dr. Airam Deuce Basophils/100 WBC (Bld) 0.4 % Normal 0.2-2.0 The [facility] Comment on above: Performed By: #### C BC ####[facility] Vjjpbetoyi12[address] [place], [place] [address]Dr. Airam Deuce EO # 0.2 103/ul Normal 0.0-0.7 [facility] Comment on above: Performed By: #### C BC ####[facility] Yaungrhwnm4538[address] [place], [place] [address]Dr. Airam Deuce Eosinophils/100 WBC (Bld) 2.3 % Normal 0.9-7.0 The [facility] Comment on above: Performed By: #### C BC ####[facility] Lfkyibjruj9342 [place] [address]Dr. Airam Tripathi Erythrocyte distribution width (RBC) [Ratio] 13.6 % Normal 11.0-15.0 [facility] Comment on above: Performed By: #### C BC ####[facility] Vmspeqrfql5096 [place] [address]Dr. Airam Tripathi Hematocrit (Bld) [Volume fraction] 32.6 % Critically low 36.0-48.0 The [facility] Comment on above: Performed By: #### C BC ####[facility] Aokcllbdeh0417[address] [place], [place] [address]Dr. Selenaneil Tripathi Hemoglobin (Bld) [Mass/Vol] 9.5 g/dL Critically low 12.0-16.0 [facility] Comment on above: Performed By: #### C BC ####[facility] Caygudvmlf10[address] [place], [place] [address]Dr. Airam Tripathi IG # 0.03 10e3/ul Normal 0.00-0.03 [facility] Comment on above: Performed By: #### C BC ####[facility] Mnxevnwsbl8585[address] [place], [place] [address]Dr. Selenaneil Tripathi IG % 0.4 % Normal 0.0-0.5 The [facility] Comment on above: Performed By: #### C BC ####[facility] Ktxbabqkrn3168[address] [place], [place] [address]Dr. Airam Tripathi LYMPH # 1.4 103/ul Normal 1.2-3.8 The [facility] Comment on above: Performed By: #### C BC ####[facility] Hmyllqilrc[address] [place], [place] [address]Dr. Airam Tripathi Lymphocytes/100 WBC (Bld) 18.2 % Critically low 20.5-60.0 [facility] Comment on above: Performed By: #### C BC ####[facility] Kcnrakeepj7014[address] [place], [place] [address]Dr. Selenaneil Tripathi MANUAL DIFF REQ NO Normal [facility] Comment on above: Performed By: #### C BC ####[facility] Niuimxhfai5246 [place] [address]Dr. Airam Tripathi MCH (RBC) [Entitic mass] 29.5 pg Normal 26.7-34.0 [facility] Comment on above: Performed By: #### C BC ####[facility] Fcqzisgbyy7538 [place] [address]Dr. Airam Tripathi MCHC (RBC) [Mass/Vol] 29.1 g/dL Critically low 29.9-35.2 The [facility] Comment on above: Performed By: #### C BC ####[facility] Awrcvdtcva8238[address] [place], [place] [address]Dr. Airam Tripathi MCV (RBC) [Entitic vol] 101.2 fL Critically high 81.0-99.0 [facility] Comment on above: Performed By: #### C BC ####[facility] Ljdmgbrxyd035[address] [place], [place] [address]Dr. Airam Deuce MONO # 0.6 103/ul Normal 0.3-0.8 [facility] Comment on above: Performed By: #### C BC ####[facility] Qewwgqvjow52[address] [place], [place] [address]Dr. Airam Deuce Monocytes/100 WBC (Bld) 7.9 % Normal 1.7-12.0 [facility] Comment on above: Performed By: #### C BC ####[facility] Qmuxolwium9077[address] [place], [place] [address]Dr. Airam Tripathi NEUT # 5.5 103/ul Normal 1.4-6.5 [facility] Comment on above: Performed By: #### C BC ####[facility] Gjocwgjbzp0[address] [place], [place] [address]Dr. Airam Deuce Neutrophils/100 WBC (Bld) 70.8 % Normal 43.0-75.0 [facility] Comment on above: Performed By: #### C BC ####[facility] Fmbslotyqs6848[address] [place], [place] [address]Dr. Airam Tripathi Platelet mean volume (Bld) [Entitic vol] 9.6 fL Normal 9.5-13.5 [facility] Comment on above: Performed By: #### C BC ####[facility] Vklitqkiut2714 [place] [phone]. Airam Tripathi PLT 265 103/ul Normal 150-450 [facility] Comment on above: Performed By: #### C BC ####[facility] Zurzjqazna3760 [place] [phone]. Airam Tripathi RBC 3.22 106/ul Critically low 4.20-5.40 [facility] Comment on above: Performed By: #### C BC ####[facility] Tsguqqhxvv6969 [place] [address]Dr. Airam Tripathi WBC 7.8 103/ul Normal 4.0-11.0 [facility] Comment on above: Performed By: #### C BC ####[facility] Oqozsbunmn7683 [place] [address]Dr. Airam Tripathi PROF 14(COMP METB)on 023 Albumin [Mass/Vol] 2.9 g/dL Critically low 3.4-5.0 [facility] Comment on above: Performed By: #### C MP ####[facility] Nrymbesdly6796 [place] [address]Dr. Airam Tripathi Albumin/Globulin [Mass ratio] 0.9 {ratio} Normal [facility] Comment on above: Performed By: #### C MP ####[facility] Iskmwuztxl0811 [place] [address]Dr. Airam Tripathi ALP [Catalytic activity/Vol] 176 U/L Critically high 46-116 [facility] Comment on above: Performed By: #### C MP ####[facility] Hjthloggjz1569 [place] [address]Dr. Airam Tripathi ALT [Catalytic activity/Vol] 19 U/L Normal 14-59 [facility] Comment on above: Performed By: #### C MP ####[facility] Fhcutbdrea9572 [place] [address]Dr. Airam Tripathi Anion gap [Moles/Vol] 12.6 mmol/L Normal [facility] Comment on above: Performed By: #### C MP ####[facility] Ntdzrfgime1037 [place] [address]Dr. Airam Tripathi AST [Catalytic activity/Vol] 25 U/L Normal 15-37 [facility] Comment on above: Performed By: #### C MP ####[facility] Hxudhfllpw0189 [place] [address]Dr. Airam Tripathi Bilirubin [Mass/Vol] 0.2 mg/dL Normal 0.2-1.0 [facility] Comment on above: Performed By: #### C MP ####[facility] Xfijyeieaq4745 [place] [address]Dr. Airam Tripathi Calcium [Mass/Vol] 8.5 mg/dL Normal 8.5-10.1 [facility] Comment on above: Performed By: #### C MP ####[facility] [address]qysjjx[address] [place], [place] [address]Dr. Airam Tripathi Chloride [Moles/Vol] 101 mmol/L Normal 98-107 [facility] [facility] Comment on above: Performed By: #### C MP ####[facility] Cihhfnipfa[address] [place], [place] [address]Dr. Airam Tripathi CO2 [Moles/Vol] 25.9 mmol/L Normal 21.0-32.0 [facility] Comment on above: Performed By: #### C MP ####[facility] Njgjbsbojp[address] [place], [place] [address]Dr. Airam Tripathi Creatinine [Mass/Vol] 1.11 mg/dL Critically high 0.55-1.02 [facility] Comment on above: Performed By: #### C MP ####[facility] Xtliymvosf[address] [place] [address]Dr. Airam Deuce EGFR-AF CITIZEN OF [place] >60 Normal >=60 [facility] Comment on above: Performed By: #### C MP ####[facility] Neejwmoldw[address] [place], [place] [address]Dr. Airam Deuce EGFR-NON AF CITIZEN OF [place] 50 mL/min/1.73m2 Critically low >=60 [facility] Comment on above: Performed By: #### C MP ####[facility] Mschrximhg101[address] [place], [place] [address]Dr. Airam Deuce Globulin (S) [Mass/Vol] 3.2 g/dL Normal [facility] Comment on above: Performed By: #### C MP ####[facility] Geumkdjyju8[address] [place] [address]Dr. Airam Tripathi Glucose [Mass/Vol] 80 mg/dL Normal 74-106 [facility] Comment on above: Performed By: #### C MP ####[facility] Vwshgexqme6327 [place] [address]Dr. Airam Deuce Potassium [Moles/Vol] 3.5 mmol/L Normal 3.5-5.1 [facility] Comment on above: Performed By: #### C MP ####[facility] Oohxlrnroo32[address] [place] [address]Dr. Airam Tripathi Protein [Mass/Vol] 6.1 g/dL Critically low 6.4-8.2 [facility] Comment on above: Performed By: #### C MP ####[facility] Trebwxervz1325[address] [place], [place] [address]Dr. Selenaneil Tripathi Sodium [Moles/Vol] 136 mmol/L Normal 136-145 [facility] Comment on above: Performed By: #### C MP ####[facility] Mmavwmhrlr75[address] [place], [place] [address]Dr. Airam Deuce Urea nitrogen [Mass/Vol] 31.0 mg/dL Critically high 7.0-18.0 [facility] Comment on above: Performed By: #### C MP ####[facility] Bocwwbmvzk88[address] [place] [address]Dr. Selenaneil Tripathi Urea nitrogen/Creatinine [Mass ratio] 27.9 mg/mg Normal [facility] Comment on above: Performed By: #### C MP ####[facility] Xgtjkdypsp5069 [place] [address]Dr. Airam Deuce OSMOLALITYon 07-19-2022 Osmolality [Osmolality] 285 mosm/kg Normal 275-295 [facility] Comment on above: Performed By: #### O SMO ####[facility] Boklevccyb5[address] [place], [place] [address]Dr. Airam Tripathi CBC AUTO DIFFon 07-15-2022 BASO # 0.0 103/ul Normal 0.0-0.1 [facility] Comment on above: Performed By: #### C BC ####[facility] Qivramhgdj2805 [place] [address]Dr. Airam Tripathi Basophils/100 WBC (Bld) 0.2 % Normal 0.2-2.0 [facility] Comment on above: Performed By: #### C BC ####[facility] Avkplgojhq4628 [place] [address]Dr. Airam Tripathi EO # 0.1 103/ul Normal 0.0-0.7 [facility] Comment on above: Performed By: #### C BC ####[facility] Sskhfjjbbt4206 [place] [address]Dr. Airam Deuce Eosinophils/100 WBC (Bld) 1.4 % Normal 0.9-7.0 [facility] Comment on above: Performed By: #### C BC ####[facility] Ygmgyupqih[address] [place], [place] [address]Dr. Airam Tripathi Erythrocyte distribution width (RBC) [Ratio] 13.0 % Normal 11.0-15.0 [facility] Comment on above: Performed By: #### C BC ####[facility] Hmdbirbslf8584 [place] [address]Dr. Airam Tripathi Hematocrit (Bld) [Volume fraction] 29.3 % Critically low 36.0-48.0 [facility] Comment on above: Performed By: #### C BC ####[facility] Bhwtcnrfrg5645 [place] [address]Dr. Airam Tripathi Hemoglobin (Bld) [Mass/Vol] 10.3 g/dL Critically low 12.0-16.0 [facility] Comment on above: Performed By: #### C BC ####[facility] Jozpaxcdqw8287 [place] [address]Dr. Airam Deuce IG # 0.05 10e3/ul Critically high 0.00-0.03 [facility] Comment on above: Performed By: #### C BC ####[facility] Vvwqdkfxmj8316 [place] [phone]. Airam Tripathi IG % 0.6 % Critically high 0.0-0.5 [facility] Comment on above: Performed By: #### C BC ####[facility] Rusimyhoey4513 [place], [place] [address]Ac. Airam Tripathi LYMPH # 0.9 103/ul Critically low 1.2-3.8 [facility] Comment on above: Performed By: #### C BC ####[facility] Hxwreezmoo5732 [place] [phone]. Airam Tripathi Lymphocytes/100 WBC (Bld) 10.6 % Critically low 20.5-60.0 [facility] Comment on above: Performed By: #### C BC ####[facility] Blafuyhyvo6384 [place] [phone]. Airam Tripathi MANUAL DIFF REQ NO Normal [facility] Comment on above: Performed By: #### C BC ####[facility] Bfkrymykcn5377 [place] [phone]. Airam Tripathi MCH (RBC) [Entitic mass] 29.3 pg Normal 26.7-34.0 [facility] Comment on above: Performed By: #### C BC ####[facility] Rwsluaxctg2070 [place] [phone]. Airam Tripathi MCHC (RBC) [Mass/Vol] 35.2 g/dL Normal 29.9-35.2 [facility] Comment on above: Performed By: #### C BC ####[facility] Fvugdgyqtq4805 [place] [phone]. Airam Tripathi MCV (RBC) [Entitic vol] 83.5 fL Normal 81.0-99.0 [facility] Comment on above: Performed By: #### C BC ####[facility] Ygnzlguadz3261 [place] [phone]. Airam Tripathi MONO # 0.5 103/ul Normal 0.3-0.8 [facility] Comment on above: Performed By: #### C BC ####[facility] Jsqtdtcjqz4426 [place] [phone]. Airam Tripathi Monocytes/100 WBC (Bld) 5.1 % Normal 1.7-12.0 [facility] Comment on above: Performed By: #### C BC ####[facility] Xmfwvdbkfq3375 [place] [phone]. Airam Tripathi NEUT # 7.3 103/ul Critically high 1.4-6.5 [facility] Comment on above: Performed By: #### C BC ####[facility] Xnyozegdro1368 [place] [address]Dr. Airam Tripathi Neutrophils/100 WBC (Bld) 82.1 % Critically high 43.0-75.0 [facility] Comment on above: Performed By: #### C BC ####[facility] Uriylrowng7233 [place] [address]Dr. Airam Tripathi Platelet mean volume (Bld) [Entitic vol] 8.9 fL Critically low 9.5-13.5 [facility] Comment on above: Performed By: #### C BC ####[facility] Oetlawhtyj1476 [place] [address]Dr. Airam Tripathi PLT 290 103/ul Normal 150-450 [facility] Comment on above: Performed By: #### C BC ####[facility] Ntnsjpmutp1792 [place] [phone]. Airam Tripathi RBC 3.51 106/ul Critically low 4.20-5.40 [facility] Comment on above: Performed By: #### C BC ####[facility] Lokquxvgpy8189 [place] [address]Dr. Airam Tripathi WBC 8.9 103/ul Normal 4.0-11.0 [facility] Comment on above: Performed By: #### C BC ####[facility] Duckjquzwf5147 [place] [address]DrKianna Tripathi PROF 14(COMP METB)on 023 Albumin [Mass/Vol] 3.2 g/dL Critically low 3.4-5.0 [facility] Comment on above: Performed By: #### C MP ####[facility] Ldzybopmrh0742 [place] [address]Dr. Airam Deuce Albumin/Globulin [Mass ratio] 0.9 {ratio} Normal [facility] Comment on above: Performed By: #### C MP ####[facility] Rnpjquozzk7309 [place] [phone]. Airam Deuce ALP [Catalytic activity/Vol] 194 U/L Critically high 46-116 [facility] Comment on above: Performed By: #### C MP ####[facility] Lvndbuvkbx01[address] [place], [place] [address]Dr. Airam Deuce ALT [Catalytic activity/Vol] 19 U/L Normal 14-59 [facility] Comment on above: Performed By: #### C MP ####[facility] Mdnslxkefq8[address] [place], [place] [address]Dr. Airam Tripathi Anion gap [Moles/Vol] 11.3 mmol/L Normal [facility] Comment on above: Performed By: #### C MP ####[facility] Ypsdvlkmen8[address] [place], [place] [address]Dr. Airam Deuce AST [Catalytic activity/Vol] 24 U/L Normal 15-37 [facility] Comment on above: Performed By: #### C MP ####[facility] Hbnlsvqgfh022[address] [place], [place] [address]Dr. Selenaneil Deuce Bilirubin [Mass/Vol] 0.2 mg/dL Normal 0.2-1.0 [facility] Comment on above: Performed By: #### C MP ####[facility] Mttjbznxdq069[address] [place], [place] [address]Dr. Airam Tripathi Calcium [Mass/Vol] 8.7 mg/dL Normal 8.5-10.1 [facility] Comment on above: Performed By: #### C MP ####[facility] Jdhmxbxnbk16[address] [place], [place] [address]Dr. Airam Tripathi Chloride [Moles/Vol] 101 mmol/L Normal 98-107 [facility] Comment on above: Performed By: #### C MP ####[facility] Yygvrtgliu5136 [place] [address]Dr. Airam Tripathi CO2 [Moles/Vol] 27.2 mmol/L Normal 21.0-32.0 [facility] Comment on above: Performed By: #### C MP ####[facility] Azcswoktnf0744 [place] [address]Dr. Airam Tripathi Creatinine [Mass/Vol] 1.17 mg/dL Critically high 0.55-1.02 [facility] Comment on above: Performed By: #### C MP ####[facility] Htjlpucwit4[address] [place], [place] [address]Dr. Airam Tripathi EGFR-AF CITIZEN OF [place] 57 mL/min/1.73m2 Critically low >=60 [facility] Comment on above: Performed By: #### C MP ####[facility] Aituqjjosn6[address] [place], [place] [address]Dr. Airam Tripathi EGFR-NON AF CITIZEN OF [place] 47 mL/min/1.73m2 Critically low >=60 [facility] Comment on above: Performed By: #### C MP ####[facility] Uluhewweay37[address] [place], [place] [address]Dr. Airam Tripathi Globulin (S) [Mass/Vol] 3.5 g/dL Normal [facility] Comment on above: Performed By: #### C MP ####[facility] Tnzjcduqhv30[address] [place], [place] [address]Dr. Airam Tripathi Glucose [Mass/Vol] 86 mg/dL Normal 74-106 [facility] Comment on above: Performed By: #### C MP ####[facility] Jbkfhewyjb9582[address] [place], [place] [address]Dr. Airam Tripathi Potassium [Moles/Vol] 5.5 mmol/L Critically high 3.5-5.1 [facility] Comment on above: Performed By: #### C MP ####[facility] Dxblxmwujw230[address] [place], [place] [address]Dr. Airam Tripathi Protein [Mass/Vol] 6.7 g/dL Normal 6.4-8.2 [facility] Comment on above: Performed By: #### C MP ####[facility] Pwenfqnubk5906 [place] [phone]. Airam Tripathi Sodium [Moles/Vol] 134 mmol/L Critically low 136-145 [facility] Comment on above: Performed By: #### C MP ####[facility] Puunjbbayg[address] [place], [place] [address]Dr. Airam Tripathi Urea nitrogen [Mass/Vol] 26.0 mg/dL Critically high 7.0-18.0 [facility] Comment on above: Performed By: #### C MP ####[facility] Xjcdpkjxcs9388[address] [place], [place] [address]Dr. Airam Tripathi Urea nitrogen/Creatinine [Mass ratio] 22.2 mg/mg Normal [facility] Comment on above: Performed By: #### C MP ####[facility] Rnbzbtsuvo006[address] [place], [place] [address]Dr. Airam Tripathi OSMOLALITYon 07-08-2022 Osmolality [Osmolality] 273 mosm/kg Critically low 275-295 [facility] Comment on above: Performed By: #### O SMO ####[facility] Jvxehqixin48[address] [place], [place] [address]Dr. Airam Tripathi CBC AUTO DIFFon 07-07-2022 BASO # 0.0 103/ul Normal 0.0-0.1 [facility] Comment on above: Performed By: #### C BC ####[facility] Zijzovyqrs1288 [place] [address]Dr. Airam Deuce Basophils/100 WBC (Bld) 0.4 % Normal 0.2-2.0 [facility] Comment on above: Performed By: #### C BC ####[facility] Qmefvdkpmu1488[address] [place], [place] [address]Dr. Airam Tripathi EO # 0.1 103/ul Normal 0.0-0.7 [facility] Comment on above: Performed By: #### C BC ####[facility] Nemhjwhvjz37[address] [place], [place] [address]Dr. Airam Deuce Eosinophils/100 WBC (Bld) 1.6 % Normal 0.9-7.0 [facility] Comment on above: Performed By: #### C BC ####[facility] Ndthvbxfpt9978 [place] [address]Dr. Airam Tripathi Erythrocyte distribution width (RBC) [Ratio] 13.1 % Normal 11.0-15.0 [facility] Comment on above: Performed By: #### C BC ####[facility] Tzrxpgqmyy8151 [place] [address]Dr. Airam Tripathi Hematocrit (Bld) [Volume fraction] 33.7 % Critically low 36.0-48.0 [facility] Comment on above: Performed By: #### C BC ####[facility] Bsdserljjr155[address] [place], [place] [address]Dr. Airam Tripathi Hemoglobin (Bld) [Mass/Vol] 9.9 g/dL Critically low 12.0-16.0 [facility] Comment on above: Performed By: #### C BC ####[facility] Jhhtcexvte5432[address] [place], [place] [address]Dr. Airam Tripathi IG # 0.05 10e3/ul Critically high 0.00-0.03 [facility] Comment on above: Performed By: #### C BC ####[facility] Pysltccmud9099[address] [place], [place] [address]Dr. Airam Tripathi IG % 0.6 % Critically high 0.0-0.5 [facility] Comment on above: Performed By: #### C BC ####[facility] Ymvhznvnsa3[address] [place], [place] [address]Dr. Airam Deuce LYMPH # 1.2 103/ul Normal 1.2-3.8 [facility] Comment on above: Performed By: #### C BC ####[facility] Lmyrqnognq4107[address] [place], [place] [address]Dr. Selenaneil Tripathi Lymphocytes/100 WBC (Bld) 15.5 % Critically low 20.5-60.0 [facility] Comment on above: Performed By: #### C BC ####[facility] Jzygxhvjnk[address] [place], [place] [address]Dr. Selenaneil Tripathi MANUAL DIFF REQ NO Normal [facility] Comment on above: Performed By: #### C BC ####[facility] Fztuubxufq3030 [place] [phone]. Airam Tripathi MCH (RBC) [Entitic mass] 28.7 pg Normal 26.7-34.0 [facility] Comment on above: Performed By: #### C BC ####[facility] Fhtpoczzzw2928 [place] [phone]. Airam Tripathi MCHC (RBC) [Mass/Vol] 29.4 g/dL Critically low 29.9-35.2 [facility] Comment on above: Performed By: #### C BC ####[facility] Buptxlumjt9053 [place] [phone]. Airam Deuce MCV (RBC) [Entitic vol] 97.7 fL Normal 81.0-99.0 [facility] Comment on above: Performed By: #### C BC ####[facility] Izxvtnziuf50[address] [place], [place] [address]Dr. Airam Tirpathi MONO # 0.6 103/ul Normal 0.3-0.8 [facility] Comment on above: Performed By: #### C BC ####[facility] Acpnjhhdcx8045 [place] [address]Dr. Selenaneil Tripathi Monocytes/100 WBC (Bld) 7.7 % Normal 1.7-12.0 [facility] Comment on above: Performed By: #### C BC ####[facility] Dskpsvvoty20[address] [place], [place] [address]Dr. Airam Tripathi NEUT # 5.9 103/ul Normal 1.4-6.5 [facility] Comment on above: Performed By: #### C BC ####[facility] Swtnhffktn0900 [place] [phone]. Airam Tripathi Neutrophils/100 WBC (Bld) 74.2 % Normal 43.0-75.0 [facility] Comment on above: Performed By: #### C BC ####[facility] Lvxuuuwwat[address] [place], [place] [address]Dr. Airam Tripathi Platelet mean volume (Bld) [Entitic vol] 9.4 fL Critically low 9.5-13.5 [facility] Comment on above: Performed By: #### C BC ####[facility] Sjlnftrmiq0414 [place] [address]Dr. Airam Tripathi PLT 331 103/ul Normal 150-450 [facility] Comment on above: Performed By: #### C BC ####[facility] Ybdcscbqhn6557 [place] [phone]. Airam Tripathi RBC 3.45 106/ul Critically low 4.20-5.40 [facility] Comment on above: Performed By: #### C BC ####[facility] Fjuwvuilrd8843 [place] [phone]. Airam Tripathi WBC 7.9 103/ul Normal 4.0-11.0 [facility] Comment on above: Performed By: #### C BC ####[facility] Ylqgrtasbr5585 [place] [address]Dr. Airam Tripathi PROF 14(COMP METB)on 023 Albumin [Mass/Vol] 3.4 g/dL Normal 3.4-5.0 [facility] Comment on above: Performed By: #### C MP ####[facility] Lsrfdfiray[address] [place], [place] [address]Dr. Airam Deuce Albumin/Globulin [Mass ratio] 1.1 {ratio} Normal [facility] Comment on above: Performed By: #### C MP ####[facility] Idaplytykg5423 [place] [address]Dr. Airam Tripathi ALP [Catalytic activity/Vol] 197 U/L Critically high 46-116 [facility] Comment on above: Performed By: #### C MP ####[facility] Ttamyozhyd9129 [place] [address]Dr. Airam Tripathi ALT [Catalytic activity/Vol] 18 U/L Normal 14-59 [facility] Comment on above: Performed By: #### C MP ####[facility] Aqnsnvmxje7968 [place] [address]Dr. Airam Tripathi Anion gap [Moles/Vol] 12.3 mmol/L Normal [facility] Comment on above: Performed By: #### C MP ####[facility] Shubprqrow0856 [place] [phone]. Airam Tripathi AST [Catalytic activity/Vol] 26 U/L Normal 15-37 [facility] Comment on above: Performed By: #### C MP ####[facility] Mbqyjqxqra6060 [place] [phone]. Airam Tripathi Bilirubin [Mass/Vol] 0.3 mg/dL Normal 0.2-1.0 [facility] Comment on above: Performed By: #### C MP ####[facility] Ofirtdunzz0213 [place] [phone]. Airam Tripathi Calcium [Mass/Vol] 8.6 mg/dL Normal 8.5-10.1 [facility] Comment on above: Performed By: #### C MP ####[facility] Idjhmznznf6180 [place] [phone]. Airam Tripathi Chloride [Moles/Vol] 96 mmol/L Critically low 98-107 [facility] Comment on above: Performed By: #### C MP ####[facility] Iexvuqtnew4914 [place] [phone]. Airam Tripathi CO2 [Moles/Vol] 27.8 mmol/L Normal 21.0-32.0 [facility] Comment on above: Performed By: #### C MP ####[facility] Ofxuqpbpam9958 [place] [phone]. Airam Tripathi Creatinine [Mass/Vol] 1.55 mg/dL Critically high 0.55-1.02 [facility] Comment on above: Performed By: #### C MP ####[facility] Xtjllqirkd9375 [place] [phone]. Airam Tripathi EGFR-AF CITIZEN OF [place] 41 mL/min/1.73m2 Critically low >=60 [facility] Comment on above: Performed By: #### C MP ####[facility] Az[address]obncwcx[address] [place], [place] [address]Dr. Airam Tripathi EGFR-NON AF CITIZEN OF [place] 34 mL/min/1.73m2 Critically low >=60 [facility] Comment on above: Performed By: #### C MP ####[facility] Fvbjituzpn4885 [place] [phone]. Airam Tripathi Globulin (S) [Mass/Vol] 3.2 g/dL Normal [facility] Comment on above: Performed By: #### C MP ####[facility] Wqzgtxahyj6606 [place] [address]Dr. Airam Tripathi Glucose [Mass/Vol] 87 mg/dL Normal 74-106 [facility] Comment on above: Performed By: #### C MP ####[facility] Vbaoxhaccb9029 [place] [address]Dr. Airam Tripathi Potassium [Moles/Vol] 5.1 mmol/L Normal 3.5-5.1 [facility] Comment on above: Performed By: #### C MP ####[facility] Gdvgxpimxp35[address] [place], [place] [address]Dr. Airam Tripathi Protein [Mass/Vol] 6.6 g/dL Normal 6.4-8.2 [facility] Comment on above: Performed By: #### C MP ####[facility] Phbwgjjyzn4246 [place] [address]Dr. Airam Tripathi Sodium [Moles/Vol] 131 mmol/L Critically low 136-145 [facility] Comment on above: Performed By: #### C MP ####[facility] Ygbaklwljk0247 [place] [address]Dr. Airam Tripathi Urea nitrogen [Mass/Vol] 31.0 mg/dL Critically high 7.0-18.0 [facility] Comment on above: Performed By: #### C MP ####[facility] Mrzjguezif5275 [place] [address]Dr. Airam Tripathi Urea nitrogen/Creatinine [Mass ratio] 20.0 mg/mg Normal [facility] Comment on above: Performed By: #### C MP ####[facility] Lkfuisxwev8336 [place] [address]Dr. Airam Tripathi OSMOLALITYon 07-02-2022 Osmolality [Osmolality] 281 mosm/kg Normal 275-295 [facility] Comment on above: Performed By: #### O SMO ####[facility] Ekzvgfsybh9289 [place] [phone]. Airam Tripathi CBC AUTO DIFFon 06-29-2022 BASO # 0.0 103/ul Normal 0.0-0.1 [facility] Comment on above: Performed By: #### C BC ####[facility] Yrhtngpyof8800 [place] [phone]. Airam Deuce Basophils/100 WBC (Bld) 0.3 % Normal 0.2-2.0 [facility] Comment on above: Performed By: #### C BC ####[facility] Afuydwvpxo01[address] [place], [place] [address]Dr. Airam Tripathi EO # 0.2 103/ul Normal 0.0-0.7 [facility] Comment on above: Performed By: #### C BC ####[facility] Wjbzkjahbs704[address] [place], [place] [address]Dr. Selenaneil Tripathi Eosinophils/100 WBC (Bld) 2.3 % Normal 0.9-7.0 [facility] Comment on above: Performed By: #### C BC ####[facility] Jofcdrrnrt5[address] [place], [place] [address]Dr. Airam Tripathi Erythrocyte distribution width (RBC) [Ratio] 13.2 % Normal 11.0-15.0 [facility] Comment on above: Performed By: #### C BC ####[facility] Woapvxcbya4[address] [place], [place] [address]Dr. Airam Tripathi Hematocrit (Bld) [Volume fraction] 28.2 % Critically low 36.0-48.0 [facility] Comment on above: Performed By: #### C BC ####[facility] W[address]jhprrfr[address] [place], [place] [address]Dr. Airam Tripathi Hemoglobin (Bld) [Mass/Vol] 9.1 g/dL Critically low 12.0-16.0 [facility] Comment on above: Performed By: #### C BC ####[facility] [address]xvvzwkif[address] [place], [place] [address]Dr. Airam Tripathi IG # 0.03 10e3/ul Normal 0.00-0.03 [facility] Comment on above: Performed By: #### C BC ####[facility] Acdlvadjsx1175 [place] [address]Dr. Selenaneil Tripathi IG % 0.4 % Normal 0.0-0.5 [facility] Comment on above: Performed By: #### C BC ####[facility] Sdwvbozjpj0342 [place] [address]Dr. Selenaneil Tripathi LYMPH # 1.0 103/ul Critically low 1.2-3.8 [facility] Comment on above: Performed By: #### C BC ####[facility] [address] [place], [place] [address]Dr. Selenaneil Tripathi Lymphocytes/100 WBC (Bld) 12.8 % Critically low 20.5-60.0 [facility] Comment on above: Performed By: #### C BC ####[facility] Mjxbxbquxv[address] [place], [place] [address]Dr. Airam Tripathi MANUAL DIFF REQ NO Normal [facility] Comment on above: Performed By: #### C BC ####[facility] Pkucazpqwe[address] [place], [place] [address]Dr. Airam Deuce MCH (RBC) [Entitic mass] 29.9 pg Normal 26.7-34.0 [facility] Comment on above: Performed By: #### C BC ####[facility] Bssdualacx09[address] [place], [place] [address]Dr. Selenaneil Tripathi MCHC (RBC) [Mass/Vol] 32.3 g/dL Normal 29.9-35.2 [facility] Comment on above: Performed By: #### C BC ####[facility] Rywjypyiyk[address] [place], [place] [address]Dr. Selenaneil Tripathi MCV (RBC) [Entitic vol] 92.8 fL Normal 81.0-99.0 [facility] Comment on above: Performed By: #### C BC ####[facility] Rqsqlhizfx25[address] [place], [place] [address]DrKianna Tripathi MONO # 0.5 103/ul Normal 0.3-0.8 [facility] Comment on above: Performed By: #### C BC ####[facility] [address] [place] [phone]. Airam Tripathi Monocytes/100 WBC (Bld) 6.0 % Normal 1.7-12.0 [facility] Comment on above: Performed By: #### C BC ####[facility] Mtysbdnaef7637 [place] [phone]. Airam Tripathi NEUT # 6.0 103/ul Normal 1.4-6.5 [facility] Comment on above: Performed By: #### C BC ####[facility] Obvfccoujt1614 [place] [phone]. Airam Tripathi Neutrophils/100 WBC (Bld) 78.2 % Critically high 43.0-75.0 [facility] Comment on above: Performed By: #### C BC ####[facility] Rjuwsulxpc3409 [place] [address]Dr. Airam Deuce Platelet mean volume (Bld) [Entitic vol] 9.0 fL Critically low 9.5-13.5 [facility] Comment on above: Performed By: #### C BC ####[facility] Cobdhuajdd034[address] [place] [address]Dr. Airam Tripathi PLT 332 103/ul Normal 150-450 [facility] Comment on above: Performed By: #### C BC ####[facility] Fpkgaqkftj2639 [place] [phone]. Airam Tripathi RBC 3.04 106/ul Critically low 4.20-5.40 [facility] Comment on above: Performed By: #### C BC ####[facility] Lwxvuaqzia0350 [place] [phone]. Airam Tripathi WBC 7.7 103/ul Normal 4.0-11.0 [facility] Comment on above: Performed By: #### C BC ####[facility] Byuqrebtpc0524 [place] [phone] Tripathi PROF 14(COMP METB)on 023 Albumin [Mass/Vol] 3.2 g/dL Critically low 3.4-5.0 e [facility] Comment on above: Performed By: #### C MP ####[facility] Rsskanrdsx2573 [place] [address]Dr. Airam Deuce Albumin/Globulin [Mass ratio] 0.9 {ratio} Normal [facility] Comment on above: Performed By: #### C MP ####[facility] Vcmnratjxz2403 [place] [address]Dr. Selenaneil Deuce ALP [Catalytic activity/Vol] 135 U/L Critically high 46-116 [facility] Comment on above: Performed By: #### C MP ####[facility] Hdxjwaxphl9[address] [place], [place] [address]Dr. Selenaneil Tripathi ALT [Catalytic activity/Vol] 25 U/L Normal 14-59 [facility] Comment on above: Performed By: #### C MP ####[facility] Bsfygawobx727[address] [place], [place] [address]Dr. Airam Tripathi Anion gap [Moles/Vol] 9.1 mmol/L Normal [facility] Comment on above: Performed By: #### C MP ####[facility] Oqeulyazqj9[address] [place], [place] [address]Dr. Airam Deuce AST [Catalytic activity/Vol] 34 U/L Normal 15-37 [facility] Comment on above: Performed By: #### C MP ####[facility] Juxfsamfhh459[address] [place], [place] [address]Dr. Airam Tripathi Bilirubin [Mass/Vol] 0.3 mg/dL Normal 0.2-1.0 [facility] Comment on above: Performed By: #### C MP ####[facility] Kmybnsvlhm0741 [place] [address]Dr. Airam Tripathi Calcium [Mass/Vol] 8.6 mg/dL Normal 8.5-10.1 [facility] Comment on above: Performed By: #### C MP ####[facility] Fulqgajbhu38[address] [place], [place] [address]Dr. Airam Tripathi Chloride [Moles/Vol] 99 mmol/L Normal 98-107 [facility] Comment on above: Performed By: #### C MP ####[facility] Kobeseagoz2849 [place] [phone]. Airam Tripathi CO2 [Moles/Vol] 29.1 mmol/L Normal 21.0-32.0 [facility] Comment on above: Performed By: #### C MP ####[facility] [address]jlbvybx1959 [place] [phone]. Airam Tripathi Creatinine [Mass/Vol] 1.40 mg/dL Critically high 0.55-1.02 [facility] Comment on above: Performed By: #### C MP ####[facility] Kyppyxmfst8061 [place] [phone]. Airam Tripathi EGFR-AF CITIZEN OF [place] 46 mL/min/1.73m2 Critically low >=60 [facility] Comment on above: Performed By: #### C MP ####[facility] Puaqpodsyx8[address] [place], [place] [address]Dr. Airam Tripathi EGFR-NON AF CITIZEN OF [place] 38 mL/min/1.73m2 Critically low >=60 [facility] Comment on above: Performed By: #### C MP ####[facility] Ydvcunqjlg0412 [place] [address]Dr. Airam Tripathi Globulin (S) [Mass/Vol] 3.4 g/dL Normal [facility] Comment on above: Performed By: #### C MP ####[facility] Uhnnzhtgqh7175 [place] [address]Dr. Airam Tripathi Glucose [Mass/Vol] 83 mg/dL Normal 74-106 [facility] Comment on above: Performed By: #### C MP ####[facility] Sfjtafgclz[address] [place], [place] [id number]. Airam Tripathi Potassium [Moles/Vol] 4.2 mmol/L Normal 3.5-5.1 [facility] Comment on above: Performed By: #### C MP ####[facility] Jwhbkhjwau8776 [place] [phone]. Airam Tripathi Protein [Mass/Vol] 6.6 g/dL Normal 6.4-8.2 [facility] Comment on above: Performed By: #### C MP ####[facility] Qslpjohqgb5[address] [place], [place] [address]Dr. Airam Tripathi Sodium [Moles/Vol] 133 mmol/L Critically low 136-145 [facility] Comment on above: Performed By: #### C MP ####[facility] Wrotzbwuga338[address] [place], [place] [address]Dr. Airam Deuce Urea nitrogen [Mass/Vol] 37.0 mg/dL Critically high 7.0-18.0 [facility] Comment on above: Performed By: #### C MP ####[facility] Pqstyzxcwd3374[address] [place], [place] [address]Dr. Airam Deuce Urea nitrogen/Creatinine [Mass ratio] 26.4 mg/mg Normal [facility] Comment on above: Performed By: #### C MP ####[facility] Qxrzxoints6979[address] [place], [place] [address]Dr. Airam Deuce BNPon 06-18-2022 Natriuretic peptide B (Bld) [Mass/Vol] 5826.0 pg/mL Critically high <=900.0 [facility] Comment on above: Performed By: #### B DONKEY ENGINE FIRER/FIREMAN, CMP ####[facility] Vryuiecddj05[address] [place], [place] [address]Dr. Airam Deuce CBC AUTO DIFFon 06-18-2022 BASO # 0.0 103/ul Normal 0.0-0.1 [facility] Comment on above: Performed By: #### C BC ####[facility] Lpoeobtrjh8155[address] [place], [place] [address]Dr. Airam Deuce Basophils/100 WBC (Bld) 0.4 % Normal 0.2-2.0 [facility] Comment on above: Performed By: #### C BC ####[facility] Urheppxrgj457[address] [place], [place] [address]Dr. Airam Tripathi EO # 0.1 103/ul Normal 0.0-0.7 [facility] Comment on above: Performed By: #### C BC ####[facility] Ljbelaiqkb8842[address] [place], [place] [address]Dr. Airam Tripathi Eosinophils/100 WBC (Bld) 1.3 % Normal 0.9-7.0 [facility] Comment on above: Performed By: #### C BC ####[facility] Fpwicwyhtu1298[address] [place], [place] [address]DrKianna Tripathi Erythrocyte distribution width (RBC) [Ratio] 13.4 % Normal 11.0-15.0 [facility] Comment on above: Performed By: #### C BC ####[facility] Olvyzfeycv8[address] [place], [place] [address]DrKianna Tripathi Hematocrit (Bld) [Volume fraction] 27.3 % Critically low 36.0-48.0 [facility] Comment on above: Performed By: #### C BC ####[facility] Wfyaxrhnaj4[address] [place], [place] [address]DrKianna Tripathi Hemoglobin (Bld) [Mass/Vol] 8.6 g/dL Critically low 12.0-16.0 [facility] Comment on above: Performed By: #### C BC ####[facility] Ztwnmeiuqs9612[address] [place], [place] [address]Dr. Airam Tripathi IG # 0.08 10e3/ul Critically high 0.00-0.03 [facility] Comment on above: Performed By: #### C BC ####[facility] Sepsykvuvw25[address] [place], [place] [address]DrKianna Tripathi IG % 0.8 % Critically high 0.0-0.5 [facility] Comment on above: Performed By: #### C BC ####[facility] Jccthionug9097[address] [place], [place] [address]DrKianna Tripathi LYMPH # 1.9 103/ul Normal 1.2-3.8 [facility] Comment on above: Performed By: #### C BC ####[facility] Rcwsqlhvdn034[address] [place], [place] [address]DrKianna Tripathi Lymphocytes/100 WBC (Bld) 19.3 % Critically low 20.5-60.0 [facility] Comment on above: Performed By: #### C BC ####[facility] Lxtpdfdvmm[address] [place], [place] [address]DrKianna Tripathi MANUAL DIFF REQ NO Normal [facility] Comment on above: Performed By: #### C BC ####[facility] Ogstzuymsd7[address] [place] [address]DrKianna Tripathi MCH (RBC) [Entitic mass] 29.6 pg Normal 26.7-34.0 [facility] Comment on above: Performed By: #### C BC ####[facility] Jnxnzkaqsk6169 [place] [address]DrKianna Tripathi MCHC (RBC) [Mass/Vol] 31.5 g/dL Normal 29.9-35.2 [facility] Comment on above: Performed By: #### C BC ####[facility] Puwlvmffdl9[address] [place], [place] [address]DrKianna Tripathi MCV (RBC) [Entitic vol] 93.8 fL Normal 81.0-99.0 [facility] Comment on above: Performed By: #### C BC ####[facility] Xysdaggnub2389[address] [place], [place] [address]DrKianna Tripathi MONO # 0.6 103/ul Normal 0.3-0.8 [facility] Comment on above: Performed By: #### C BC ####[facility] Sfchlrsfru8[address] [place], [place] [address]DrKianna Tripathi Monocytes/100 WBC (Bld) 6.5 % Normal 1.7-12.0 [facility] Comment on above: Performed By: #### C BC ####[facility] Sazsvxbegn45[address] [place], [place] [address]DrKianna Tripathi NEUT # 6.9 103/ul Critically high 1.4-6.5 [facility] Comment on above: Performed By: #### C BC ####[facility] Nwytcddhyg46[address] [place], [place] [address]DrKianna Tripathi Neutrophils/100 WBC (Bld) 71.7 % Normal 43.0-75.0 [facility] Comment on above: Performed By: #### C BC ####[facility] Rtoptgtlyt9259[address] [place], [place] [address]Dr. Airam Tripathi Platelet mean volume (Bld) [Entitic vol] 8.5 fL Critically low 9.5-13.5 [facility] Comment on above: Performed By: #### C BC ####[facility] Imawuvuwkl2661 [place] [address]Dr. Airam Tripathi PLT 295 103/ul Normal 150-450 [facility] Comment on above: Performed By: #### C BC ####[facility] Xasaqrrfsk6837 [place] [address]Dr. Airam Tripathi RBC 2.91 106/ul Critically low 4.20-5.40 [facility] Comment on above: Performed By: #### C BC ####[facility] Lnguzwerii6933 [place] [address]DrKianna Tripathi WBC 9.7 103/ul Normal 4.0-11.0 [facility] Comment on above: Performed By: #### C BC ####[facility] Lwbqpjlwiv00[address] [place], [place] [address]DrKianna Tripathi PROF 14(COMP METB)on 022 Albumin [Mass/Vol] 2.8 g/dL Critically low 3.4-5.0 [facility] Comment on above: Performed By: #### B DONKEY ENGINE FIRER/FIREMAN, CMP ####[facility] Lvjlcxnbuo[address] [place], [place] [address]DrKianna Tripathi Albumin/Globulin [Mass ratio] 0.9 {ratio} Normal [facility] Comment on above: Performed By: #### B DONKEY ENGINE FIRER/FIREMAN, CMP ####[facility] Abhtutsrtq3816[address] [place], [place] [address]DrKianna Tripathi ALP [Catalytic activity/Vol] 125 U/L Critically high 46-116 [facility] Comment on above: Performed By: #### B DONKEY ENGINE FIRER/FIREMAN, CMP ####[facility] Ilihzrpboi80[address] [place], [place] [address]DrKianna Tripathi ALT [Catalytic activity/Vol] 16 U/L Normal 14-59 [facility] Comment on above: Performed By: #### B DONKEY ENGINE FIRER/FIREMAN, CMP ####[facility] Nasqureyfo9198[address] [place], [place] [address]Dr. Airam Tripathi Anion gap [Moles/Vol] 11.4 mmol/L Normal [facility] Comment on above: Performed By: #### B DONKEY ENGINE FIRER/FIREMAN, CMP ####[facility] Digtyhodsm699[address] [place], [place] [address]Dr. Airam Tripathi AST [Catalytic activity/Vol] 23 U/L Normal 15-37 [facility] Comment on above: Performed By: #### B DONKEY ENGINE FIRER/FIREMAN, CMP ####[facility] Qoljmyeofd0214[address] [place], [place] [address]Dr. Airam Tripathi Bilirubin [Mass/Vol] 0.2 mg/dL Normal 0.2-1.0 [facility] Comment on above: Performed By: #### B DONKEY ENGINE FIRER/FIREMAN, CMP ####[facility] Qwxdabtgle230[address] [place], [place] [address]Dr. Airam Tripathi Calcium [Mass/Vol] 8.1 mg/dL Critically low 8.5-10.1 [facility] Comment on above: Performed By: #### B DONKEY ENGINE FIRER/FIREMAN, CMP ####[facility] Yfdtupcdbr3516[address] [place], [place] [address]Dr. Airam Tripathi Chloride [Moles/Vol] 96 mmol/L Critically low 98-107 [facility] Comment on above: Performed By: #### B DONKEY ENGINE FIRER/FIREMAN, CMP ####[facility] Ztojynznfk406[address] [place], [place] [address]Dr. Airam Tripathi CO2 [Moles/Vol] 26.6 mmol/L Normal 21.0-32.0 [facility] Comment on above: Performed By: #### B DONKEY ENGINE FIRER/FIREMAN, CMP ####[facility] Zotmrdpzdi[address] [place], [place] [address]Dr. Airam Tripathi Creatinine [Mass/Vol] 1.31 mg/dL Critically high 0.55-1.02 [facility] Comment on above: Performed By: #### B DONKEY ENGINE FIRER/FIREMAN, CMP ####[facility] Iiuxjyphfl[address] [place], [place] [address]Dr. Airam Tripathi EGFR-AF CITIZEN OF [place] 50 mL/min/1.73m2 Critically low >=60 [facility] Comment on above: Performed By: #### B DONKEY ENGINE FIRER/FIREMAN, CMP ####[facility] Koinrhdylk5434 [place] [phone]. Airam Tripathi EGFR-NON AF CITIZEN OF [place] 41 mL/min/1.73m2 Critically low >=60 [facility] Comment on above: Performed By: #### B DONKEY ENGINE FIRER/FIREMAN, CMP ####[facility] Yeupeibtkq8541 [place] [address]Dr. Airam Tripathi Globulin (S) [Mass/Vol] 3.0 g/dL Normal [facility] Comment on above: Performed By: #### B DONKEY ENGINE FIRER/FIREMAN, CMP ####[facility] Otbdpzoang[address] [place], [place] [address]Dr. Airam Tripathi Glucose [Mass/Vol] 82 mg/dL Normal 74-106 [facility] Comment on above: Performed By: #### B DONKEY ENGINE FIRER/FIREMAN, CMP ####[facility] Hzkjblbkph9176[address] [place], [place] [address]Dr. Airam Tripathi Potassium [Moles/Vol] 4.0 mmol/L Normal 3.5-5.1 [facility] Comment on above: Performed By: #### B DONKEY ENGINE FIRER/FIREMAN, CMP ####[facility] Wdxbulyehv4944[address] [place], [place] [address]Dr. Airam Tripathi Protein [Mass/Vol] 5.8 g/dL Critically low 6.4-8.2 [facility] Comment on above: Performed By: #### B DONKEY ENGINE FIRER/FIREMAN, CMP ####[facility] Jzgdzfrwbb7034[address] [place], [place] [address]Dr. Airam Tripathi Sodium [Moles/Vol] 130 mmol/L Critically low 136-145 [facility] Comment on above: Performed By: #### B DONKEY ENGINE FIRER/FIREMAN, CMP ####[facility] Ovscufpztl8698[address] [place], [place] [address]Dr. Airam Tripathi Urea nitrogen [Mass/Vol] 19.0 mg/dL Critically high 7.0-18.0 [facility] Comment on above: Performed By: #### B DONKEY ENGINE FIRER/FIREMAN, CMP ####[facility] Tmajktorzi[address] [place], [place] [address]Dr. Airam Tripathi Urea nitrogen/Creatinine [Mass ratio] 14.5 mg/mg Normal [facility] Comment on above: Performed By: #### B DONKEY ENGINE FIRER/FIREMAN, CMP ####[facility] Zajaaassvp2480[address] [place], [place] [address]Dr. Airam Tripathi BNPon 06-17-2022 Natriuretic peptide B (Bld) [Mass/Vol] 2510.0 pg/mL Critically high <=900.0 [facility] Comment on above: Performed By: #### B DONKEY ENGINE FIRER/FIREMAN, CMP ####[facility] Krndcdponc6806[address] [place], [place] [address]Dr. Airam Tripathi CBC AUTO DIFFon 06-17-2022 BASO # 0.0 103/ul Normal 0.0-0.1 [facility] Comment on above: Performed By: #### C BC ####[facility] Rlcsvygupy1367[address] [place], [place] [address]Dr. Airam Tripathi Basophils/100 WBC (Bld) 0.4 % Normal 0.2-2.0 [facility] Comment on above: Performed By: #### C BC ####[facility] Opsertdjok9120[address] [place], [place] [address]DrKianna Tripathi EO # 0.0 103/ul Normal 0.0-0.7 [facility] Comment on above: Performed By: #### C BC ####[facility] Rtrxqsgfzx29[address] [place], [place] [address]DrKianna Tripathi Eosinophils/100 WBC (Bld) 0.3 % Critically low 0.9-7.0 [facility] Comment on above: Performed By: #### C BC ####[facility] Txuoaufvdh5107[address] [place], [place] [address]Dr. Airam Tripathi Erythrocyte distribution width (RBC) [Ratio] 13.6 % Normal 11.0-15.0 [facility] Comment on above: Performed By: #### C BC ####[facility] Ftsrzfwowu7604[address] [place], [place] [address]Dr. Airam Tripathi Hematocrit (Bld) [Volume fraction] 28.9 % Critically low 36.0-48.0 [facility] Comment on above: Performed By: #### C BC ####[facility] Zotwvzzqwe103[address] [place], [place] [address]Dr. Airam Deuce Hemoglobin (Bld) [Mass/Vol] 8.9 g/dL Critically low 12.0-16.0 [facility] Comment on above: Performed By: #### C BC ####[facility] Hgylylhhks8036 [place] [address]Dr. Selenaneil Deuce IG # 0.10 10e3/ul Critically high 0.00-0.03 [facility] Comment on above: Performed By: #### C BC ####[facility] Nawubprhlg1853 [place] [address]Dr. Airam Tripathi IG % 1.3 % Critically high 0.0-0.5 [facility] Comment on above: Performed By: #### C BC ####[facility] Qciykzkidk9909[address] [place], [place] [address]DrKianna Tripathi LYMPH # 0.7 103/ul Critically low 1.2-3.8 [facility] Comment on above: Performed By: #### C BC ####[facility] Sxfzrytpkt7[address] [place], [place] [address]DrKianna Tripathi Lymphocytes/100 WBC (Bld) 8.1 % Critically low 20.5-60.0 [facility] Comment on above: Performed By: #### C BC ####[facility] Vrctmcujbb9432 [place] [address]DrKianna Selenaneil Tripathi MANUAL DIFF REQ NO Normal [facility] Comment on above: Performed By: #### C BC ####[facility] [address]bcojqwgp1814[address] [place], [place] [address]DrKianna Airam Deuce MCH (RBC) [Entitic mass] 29.4 pg Normal 26.7-34.0 [facility] Comment on above: Performed By: #### C BC ####[facility] Xhzpfglwsq[address] [place], [place] [address]DrKianna Airam Deuce MCHC (RBC) [Mass/Vol] 30.8 g/dL Normal 29.9-35.2 [facility] Comment on above: Performed By: #### C BC ####[facility] Dwvqfbueiw9346[address] [place], [place] [address]DrKianna Tripathi MCV (RBC) [Entitic vol] 95.4 fL Normal 81.0-99.0 [facility] Comment on above: Performed By: #### C BC ####[facility] Jiffjgwcyf6416 [place] [address]Dr. Selenaneil Tripathi MONO # 0.3 103/ul Normal 0.3-0.8 [facility] Comment on above: Performed By: #### C BC ####[facility] Nhjodklhvb023[address] [place], [place] [address]Dr. Airam Tripathi Monocytes/100 WBC (Bld) 3.1 % Normal 1.7-12.0 [facility] Comment on above: Performed By: #### C BC ####[facility] Hkazfgcktv832[address] [place], [place] [address]Dr. Airam Tripathi NEUT # 7.0 103/ul Critically high 1.4-6.5 [facility] Comment on above: Performed By: #### C BC ####[facility] Rzsswhnmcn17[address] [place], [place] [address]Dr. Airam Tripathi Neutrophils/100 WBC (Bld) 86.8 % Critically high 43.0-75.0 [facility] Comment on above: Performed By: #### C BC ####[facility] Peidecfdjy4901[address] [place], [place] [address]Dr. Airam Tripathi Platelet mean volume (Bld) [Entitic vol] 8.3 fL Critically low 9.5-13.5 [facility] Comment on above: Performed By: #### C BC ####[facility] Qjrsgfibou17[address] [place], [place] [address]Dr. Airam Tripathi PLT 279 103/ul Normal 150-450 [facility] Comment on above: Performed By: #### C BC ####[facility] Bevihbouzz17[address] [place], [place] [address]DrKianna Tripathi RBC 3.03 106/ul Critically low 4.20-5.40 [facility] Comment on above: Performed By: #### C BC ####[facility] [address]uzwdkqlxp32[address] [place], [place] [address]DrKianna Tripathi WBC 8.0 103/ul Normal 4.0-11.0 [facility] Comment on above: Performed By: #### C BC ####[facility] Fgohixbrig[address] [place], [place] [address]Dr. Airam Tripathi PROF 14(COMP METB)on 022 Albumin [Mass/Vol] 2.8 g/dL Critically low 3.4-5.0 [facility] Comment on above: Performed By: #### B DONKEY ENGINE FIRER/FIREMAN, CMP ####[facility] [address]cchptwcpr[address] [place], [place] [address]Dr. Airam Tripathi Albumin/Globulin [Mass ratio] 0.9 {ratio} Normal [facility] Comment on above: Performed By: #### B DONKEY ENGINE FIRER/FIREMAN, CMP ####[facility] [address]utgzfguh[address] [place], [place] [address]Dr. Airam Tripathi ALP [Catalytic activity/Vol] 136 U/L Critically high 46-116 [facility] Comment on above: Performed By: #### B DONKEY ENGINE FIRER/FIREMAN, CMP ####[facility] Owdmqszshp[address] [place], [place] [address]Dr. Airam Tripathi ALT [Catalytic activity/Vol] 17 U/L Normal 14-59 [facility] Comment on above: Performed By: #### B DONKEY ENGINE FIRER/FIREMAN, CMP ####[facility] Gljxodmrll[address] [place], [place] [address]Dr. Airam Tripathi Anion gap [Moles/Vol] 12.9 mmol/L Normal [facility] Comment on above: Performed By: #### B DONKEY ENGINE FIRER/FIREMAN, CMP ####[facility] Vohdgysaps[address] [place], [place] [address]Dr. Airam Tripathi AST [Catalytic activity/Vol] 24 U/L Normal 15-37 [facility] Comment on above: Performed By: #### B DONKEY ENGINE FIRER/FIREMAN, CMP ####[facility] Ivsyuvlkhc9[address] [place], [place] [address]Dr. Airam Tripathi Bilirubin [Mass/Vol] 0.2 mg/dL Normal 0.2-1.0 [facility] Comment on above: Performed By: #### B DONKEY ENGINE FIRER/FIREMAN, CMP ####[facility] [address] [place] [id number]. Airam Tripathi Calcium [Mass/Vol] 8.7 mg/dL Normal 8.5-10.1 [facility] Comment on above: Performed By: #### B DONKEY ENGINE FIRER/FIREMAN, CMP ####[facility] [address]rf[address]irr[address] [place] [phone]. Airam Tripathi Chloride [Moles/Vol] 102 mmol/L Normal 98-107 [facility] Comment on above: Performed By: #### B DONKEY ENGINE FIRER/FIREMAN, CMP ####[facility] Gxmlmkhjge6[address] [place] [address]Dr. Airam Tripathi CO2 [Moles/Vol] 23.8 mmol/L Normal 21.0-32.0 [facility] Comment on above: Performed By: #### B DONKEY ENGINE FIRER/FIREMAN, CMP ####[facility] Hrwwzmgofm[address] [place], [place] [address]Dr. Airam Tripathi Creatinine [Mass/Vol] 1.08 mg/dL Critically high 0.55-1.02 [facility] Comment on above: Performed By: #### B DONKEY ENGINE FIRER/FIREMAN, CMP ####[facility] Oddyhbntwu[address] [place] [address]Dr. Airam Tripathi EGFR-AF CITIZEN OF [place] >60 Normal >=60 [facility] Comment on above: Performed By: #### B DONKEY ENGINE FIRER/FIREMAN, CMP ####[facility] [address]wabhdphwt[address] [place], [place] [id number]. iAram Tripathi EGFR-NON AF CITIZEN OF [place] 52 mL/min/1.73m2 Critically low >=60 [facility] Comment on above: Performed By: #### B DONKEY ENGINE FIRER/FIREMAN, CMP ####[facility] Lzbfqdhzuq13[address] [place] [phone]. Airam Tripathi Globulin (S) [Mass/Vol] 3.2 g/dL Normal [facility] Comment on above: Performed By: #### B DONKEY ENGINE FIRER/FIREMAN, CMP ####[facility] Yqolmqamig[address] [place] [address]Dr. Airam Tripathi Glucose [Mass/Vol] 99 mg/dL Normal 74-106 [facility] Comment on above: Performed By: #### B DONKEY ENGINE FIRER/FIREMAN, CMP ####[facility] Ahysvqgxtb[address] [place] [address]Dr. Selenaneil Deuce Potassium [Moles/Vol] 4.7 mmol/L Normal 3.5-5.1 [facility] Comment on above: Performed By: #### B DONKEY ENGINE FIRER/FIREMAN, CMP ####[facility] Kvnezcsrfy9[address] [place], [place] [address]Dr. Airam Tripathi Protein [Mass/Vol] 6.0 g/dL Critically low 6.4-8.2 Th [facility] Comment on above: Performed By: #### B DONKEY ENGINE FIRER/FIREMAN, CMP ####[facility] Mymocathij[address] [place], [place] [address]Dr. Airam Tripathi Sodium [Moles/Vol] 134 mmol/L Critically low 136-145 Th [facility] Comment on above: Performed By: #### B DONKEY ENGINE FIRER/FIREMAN, CMP ####[facility] Hculjkzarg14[address] [place], [place] [address]Dr. Airam Tripathi Urea nitrogen [Mass/Vol] 19.0 mg/dL Critically high 7.0-18.0 [facility] Comment on above: Performed By: #### B DONKEY ENGINE FIRER/FIREMAN, CMP ####[facility] Uwjlsdrtyk[address] [place], [place] [address]Dr. Airam Tripathi Urea nitrogen/Creatinine [Mass ratio] 17.6 mg/mg Normal [facility] Comment on above: Performed By: #### B DONKEY ENGINE FIRER/FIREMAN, CMP ####[facility] Zqnbkkibwq[address] [place], [place] [address]Dr. Airam Tripathi PROTIMEon 06-17-2022 INR Coag (PPP) [Relative time] 1.00 {INR} Normal [facility] Comment on above: Performed By: #### P T ####[facility] Fsitidlkyu65[address] [place], [place] [address]Dr. Airam Tripathi INR GUIDELINES SEE BELOW Normal [facility] Comment on above: Result Comment: SIDRA RED INR: 2.0 - 3.0 CONDITIONS NOT LISTED BELOW 2.5 - 3.5 FOR PROSTHETIC HEART VALVE REPLACEMENT 2.5 - 3.5 RECURRENT THROMBOSIS Performed By: #### P T ####[facility] Nzpibszxqr00[address] [place], [place] [address]Dr. Airam Tripathi PT Coag (PPP) [Time] 10.8 s Normal 9.0-11.6 [facility] Comment on above: Performed By: #### P T ####[facility] Gdtgpdemaz[address] [place], [place] [address]Dr. Airam Tripathi PTTon 06-17-2022 aPTT Coag (Bld) [Time] 27.2 s Normal 22.3-36.2 Th [facility] Comment on above: Performed By: #### P TT ####[facility] Lsgmbnchep[address] [place], [place] [address]Dr. Airam Tripathi BNPon 06-16-2022 Natriuretic peptide B (Bld) [Mass/Vol] 2293.0 pg/mL Critically high <=900.0 [facility] Comment on above: Performed By: #### C MP, BNP ####[facility] Sfcmlazrvh7[address] [place], [place] [address]Dr. Airam Tripathi CBC AUTO DIFFon 06-16-2022 BASO # 0.0 103/ul Normal 0.0-0.1 [facility] Comment on above: Performed By: #### C BC ####[facility] Hesoqiboyt3[address] [place], [place] [address]Dr. Airam Tripathi Basophils/100 WBC (Bld) 0.4 % Normal 0.2-2.0 [facility] Comment on above: Performed By: #### C BC ####[facility] Lispskhlmq73[address] [place], [place] [address]Dr. Airam Tripathi EO # 0.2 103/ul Normal 0.0-0.7 [facility] Comment on above: Performed By: #### C BC ####[facility] Ztgzwjqche4187[address] [place], [place] [address]Dr. Airam Tripathi Eosinophils/100 WBC (Bld) 3.0 % Normal 0.9-7.0 The [facility] Comment on above: Performed By: #### C BC ####[facility] Mczusomdxd39[address] [place], [place] [address]DrKianna Airam Tripathi Erythrocyte distribution width (RBC) [Ratio] 13.3 % Normal 11.0-15.0 [facility] Comment on above: Performed By: #### C BC ####[facility] Trbqcfvugl[address] [place] [address]DrKianna Tripathi Hematocrit (Bld) [Volume fraction] 26.2 % Critically low 36.0-48.0 [facility] Comment on above: Performed By: #### C BC ####[facility] Apmeeeugdl6345[address] [place], [place] [address]DrKianna Tripathi Hemoglobin (Bld) [Mass/Vol] 8.3 g/dL Critically low 12.0-16.0 [facility] Comment on above: Performed By: #### C BC ####[facility] Svbmxdjrwv9[address] [place], [place] [address]DrKianna Tripathi IG # 0.08 10e3/ul Critically high 0.00-0.03 [facility] Comment on above: Performed By: #### C BC ####[facility] Ngzgupawzp[address] [place], [place] [address]DrKianna Tripathi IG % 1.1 % Critically high 0.0-0.5 The [facility] Comment on above: Performed By: #### C BC ####[facility] Dqjyaohiiy52[address] [place], [place] [address]DrKianna Tripathi LYMPH # 1.2 103/ul Normal 1.2-3.8 The [facility] Comment on above: Performed By: #### C BC ####[facility] Vhdhbmiuda[address] [place], [place] [address]DrKianna Tripathi Lymphocytes/100 WBC (Bld) 17.3 % Critically low 20.5-60.0 [facility] Comment on above: Performed By: #### C BC ####[facility] Chrfazjhvk[address] [place], [place] [address]DrKianna Tripathi MANUAL DIFF REQ NO Normal [facility] Comment on above: Performed By: #### C BC ####[facility] Pubnboeqrt[address] [place], [place] [address]DrKianna Tripathi MCH (RBC) [Entitic mass] 30.3 pg Normal 26.7-34.0 The [facility] Comment on above: Performed By: #### C BC ####[facility] X[address]ew[address]ztl[address] [place] [address]Dr. Airam Tripathi MCHC (RBC) [Mass/Vol] 31.7 g/dL Normal 29.9-35.2 [facility] Comment on above: Performed By: #### C BC ####[facility] Utsf[address]yfmf[address] [place] [address]Dr. Airam Tripathi MCV (RBC) [Entitic vol] 95.6 fL Normal 81.0-99.0 [facility] Comment on above: Performed By: #### C BC ####[facility] Nwqgslxqzz0[address] [place], [place] [address]DrKianna Tripathi MONO # 0.5 103/ul Normal 0.3-0.8 [facility] Comment on above: Performed By: #### C BC ####[facility] Abksthxibx6664[address] [place], [place] [address]Dr. Airam Tripathi Monocytes/100 WBC (Bld) 7.1 % Normal 1.7-12.0 [facility] Comment on above: Performed By: #### C BC ####[facility] B[address]fgxqvgn[address] [place], [place] [address]DrKianna Tripathi NEUT # 5.0 103/ul Normal 1.4-6.5 [facility] Comment on above: Performed By: #### C BC ####[facility] Yhlkuhbmdm[address] [place], [place] [address]Dr. Airam Tripathi Neutrophils/100 WBC (Bld) 71.1 % Normal 43.0-75.0 [facility] Comment on above: Performed By: #### C BC ####[facility] [address] [place], [place] [address]DrKianna Tripathi Platelet mean volume (Bld) [Entitic vol] 8.2 fL Critically low 9.5-13.5 [facility] Comment on above: Performed By: #### C BC ####[facility] [address]ynrquvpa[address] [place], [place] [address]Dr. Airam Tripathi PLT 247 103/ul Normal 150-450 [facility] Comment on above: Performed By: #### C BC ####[facility] Tpygravkio[address] [place] [address]Dr. Airam Tripathi RBC 2.74 106/ul Critically low 4.20-5.40 [facility] Comment on above: Performed By: #### C BC ####[facility] Efszlhpvwg66[address] [place] [phone]. Airam Tripathi WBC 7.1 103/ul Normal 4.0-11.0 [facility] Comment on above: Performed By: #### C BC ####[facility] Acfq[address]wkvjv39[address] [place] [address]Dr. Airam Tripathi CTA CHEST WO W CONon 022 CTA CHEST WO W CON Normal [facility] PROF 14(COMP METB)on 022 Albumin [Mass/Vol] 2.6 g/dL Critically low 3.4-5.0 [facility] Comment on above: Performed By: #### C MP, BNP ####[facility] Sviq[address]vzkoj[address] [place] [address]Dr. Airam Tripathi Albumin/Globulin [Mass ratio] 0.8 {ratio} Normal [facility] Comment on above: Performed By: #### C MP, BNP ####[facility] Pycedixblt[address] [place] [address]Dr. Airam Tripathi ALP [Catalytic activity/Vol] 130 U/L Critically high 46-116 [facility] Comment on above: Performed By: #### C MP, BNP ####[facility] [address]ixnljnzy[address] [place] [address]Dr. Airam Tripathi ALT [Catalytic activity/Vol] 12 U/L Critically low 14-59 [facility] Comment on above: Performed By: #### C MP, BNP ####[facility] Kcaiwejrla66[address] [place] [address]Dr. Airam Deuce Anion gap [Moles/Vol] 11.8 mmol/L Normal [facility] Comment on above: Performed By: #### C MP, BNP ####[facility] Edffidjmuu8304 [place] [address]Dr. Airam Tripathi AST [Catalytic activity/Vol] 22 U/L Normal 15-37 [facility] Comment on above: Performed By: #### C MP, BNP ####[facility] Bxiixdopib7[address] [place], [place] [address]Dr. Airam Tripathi Bilirubin [Mass/Vol] 0.2 mg/dL Normal 0.2-1.0 [facility] Comment on above: Performed By: #### C MP, BNP ####[facility] Rskfmniejr[address] [place], [place] [address]Dr. Airam Tripathi Calcium [Mass/Vol] 8.0 mg/dL Critically low 8.5-10.1 Th e [facility] Comment on above: Performed By: #### C MP, BNP ####[facility] Bwvxeyqnlc[address] [place], [place] [address]Dr. Ariam Tripathi Chloride [Moles/Vol] 104 mmol/L Normal 98-107 [facility] Comment on above: Performed By: #### C MP, BNP ####[facility] Omivdjongt5[address] [place], [place] [address]Dr. Airam Tripathi CO2 [Moles/Vol] 22.8 mmol/L Normal 21.0-32.0 [facility] Comment on above: Performed By: #### C MP, BNP ####[facility] Klrapysdae67[address] [place], [place] [address]Dr. Airam Tripathi Creatinine [Mass/Vol] 1.07 mg/dL Critically high 0.55-1.02 [facility] Comment on above: Performed By: #### C MP, BNP ####[facility] Xonguvdbia[address] [place] [address]Dr. Airam Tripathi EGFR-AF CITIZEN OF [place] >60 Normal >=60 [facility] Comment on above: Performed By: #### C MP, BNP ####[facility] Ducmvgckwi8137[address] [place], [place] [address]Dr. Airam Tripathi EGFR-NON AF CITIZEN OF [place] 52 mL/min/1.73m2 Critically low >=60 [facility] Comment on above: Performed By: #### C MP, BNP ####[facility] Wgbrurnbsr0319[address] [place], [place] [address]Dr. Airam Tripathi Globulin (S) [Mass/Vol] 3.1 g/dL Normal [facility] Comment on above: Performed By: #### C MP, BNP ####[facility] Xujfaidmgz6778[address] [place], [place] [address]Dr. Airam Tripathi Glucose [Mass/Vol] 85 mg/dL Normal 74-106 [facility] Comment on above: Performed By: #### C MP, BNP ####[facility] Wtceluydcl9379[address] [place], [place] [address]Dr. Airam Tripathi Potassium [Moles/Vol] 4.6 mmol/L Normal 3.5-5.1 [facility] Comment on above: Performed By: #### C MP, BNP ####[facility] Xtcyduvjgo43[address] [place], [place] [address]Dr. Airam Tripathi Protein [Mass/Vol] 5.7 g/dL Critically low 6.4-8.2 [facility] Comment on above: Performed By: #### C MP, BNP ####[facility] Ftlflmjqnl5640[address] [place], [place] [address]Dr. Airam Tripathi Sodium [Moles/Vol] 134 mmol/L Critically low 136-145 Th [facility] Comment on above: Performed By: #### C MP, BNP ####[facility] Lkvejocgly[address] [place], [place] [address]Dr. Airam Tripathi Urea nitrogen [Mass/Vol] 24.0 mg/dL Critically high 7.0-18.0 [facility] Comment on above: Performed By: #### C MP, BNP ####[facility] Xhfspceove8748[address] [place], [place] [address]Dr. Airam Tripathi Urea nitrogen/Creatinine [Mass ratio] 22.4 mg/mg Normal [facility] Comment on above: Performed By: #### C MP, BNP ####[facility] Keyyeyadea7[address] [place], [place] [address]Dr. Airam Tripathi BNPon 06-15-2022 Natriuretic peptide B (Bld) [Mass/Vol] 934.0 pg/mL Critically high <=900.0 The [facility] Comment on above: Performed By: #### C MP, BNP ####[facility] Mshpxcnqyg214[address] [place], [place] [address]Dr. Airam Tripathi CBC AUTO DIFFon 06-15-2022 BASO # 0.0 103/ul Normal 0.0-0.1 [facility] Comment on above: Performed By: #### C BC ####[facility] Wfxyswgwsd86[address] [place], [place] [address]Dr. Airam Tripathi Basophils/100 WBC (Bld) 0.2 % Normal 0.2-2.0 The [facility] Comment on above: Performed By: #### C BC ####[facility] Pyezrjgdit[address] [place], [place] [address]Dr. Airam Tripathi EO # 0.1 103/ul Normal 0.0-0.7 The [facility] Comment on above: Performed By: #### C BC ####[facility] Dntjdnkgzj[address] [place], [place] [address]Dr. Selenaneil Tripathi Eosinophils/100 WBC (Bld) 2.1 % Normal 0.9-7.0 The [facility] Comment on above: Performed By: #### C BC ####[facility] [address]vhtsbehda[address] [place], [place] [address]Dr. Selenaneil Tripathi Erythrocyte distribution width (RBC) [Ratio] 12.9 % Normal 11.0-15.0 [facility] Comment on above: Performed By: #### C BC ####[facility] S[address]nnussbm[address] [place], [place] [address]Dr. Airam Tripathi Hematocrit (Bld) [Volume fraction] 24.9 % Critically low 36.0-48.0 The [facility] Comment on above: Performed By: #### C BC ####[facility] [address]vxdvpstuf[address] [place], [place] [address]Dr. Airam Tripathi Hemoglobin (Bld) [Mass/Vol] 7.9 g/dL Critically low 12.0-16.0 [facility] Comment on above: Performed By: #### C BC ####[facility] [address]fd[address]ocza[address] [place] [phone]. Airam Tripathi IG # 0.05 10e3/ul Critically high 0.00-0.03 [facility] Comment on above: Performed By: #### C BC ####[facility] Ihnaqdisuf[address] [place] [address]Dr. Airam Tripathi IG % 0.8 % Critically high 0.0-0.5 [facility] Comment on above: Performed By: #### C BC ####[facility] Njosudzxrd3[address] [place] [address]Dr. Airam Tripathi LYMPH # 0.9 103/ul Critically low 1.2-3.8 The [facility] Comment on above: Performed By: #### C BC ####[facility] Prmhmzaokq3[address] [place] [address]Dr. Selenaneil Tripathi Lymphocytes/100 WBC (Bld) 13.7 % Critically low 20.5-60.0 [facility] Comment on above: Performed By: #### C BC ####[facility] Rpicxqofwm32[address] [place] [address]Dr. Airam Deuce MANUAL DIFF REQ NO Normal [facility] Comment on above: Performed By: #### C BC ####[facility] Qvrqkjasoo3096 [place] [address]Dr. Airam Tripathi MCH (RBC) [Entitic mass] 30.2 pg Normal 26.7-34.0 [facility] Comment on above: Performed By: #### C BC ####[facility] Tgonizqgoy0688 [place] [address]Dr. Airam Tripathi MCHC (RBC) [Mass/Vol] 31.7 g/dL Normal 29.9-35.2 [facility] Comment on above: Performed By: #### C BC ####[facility] Yympcjbihs[address] [place], [place] [address]Dr. Airam Tripathi MCV (RBC) [Entitic vol] 95.0 fL Normal 81.0-99.0 [facility] Comment on above: Performed By: #### C BC ####[facility] Tnsuqxukvu7[address] [place] [phone]. Airam Tripathi MONO # 0.4 103/ul Normal 0.3-0.8 [facility] Comment on above: Performed By: #### C BC ####[facility] Knvmpxiucp8328 [place] [phone]. Airam Tripathi Monocytes/100 WBC (Bld) 6.7 % Normal 1.7-12.0 [facility] Comment on above: Performed By: #### C BC ####[facility] Xaenetofor[address] [place] [address]Dr. Airam Tripathi NEUT # 5.0 103/ul Normal 1.4-6.5 [facility] Comment on above: Performed By: #### C BC ####[facility] Ddbpzcxmyp6520 [place] [address]Dr. Airam Tripathi Neutrophils/100 WBC (Bld) 76.5 % Critically high 43.0-75.0 [facility] Comment on above: Performed By: #### C BC ####[facility] Qswzsgffin2311 [place] [address]Dr. Airam Tripathi Platelet mean volume (Bld) [Entitic vol] 8.4 fL Critically low 9.5-13.5 [facility] Comment on above: Performed By: #### C BC ####[facility] Uokhpspcxh27[address] [place] [phone]. Airam Tripathi PLT 202 103/ul Normal 150-450 [facility] Comment on above: Performed By: #### C BC ####[facility] Epbvnbpwwz8244[address] [place], [place] [address]Dr. Airam Tripathi RBC 2.62 106/ul Critically low 4.20-5.40 [facility] Comment on above: Performed By: #### C BC ####[facility] [address]klvcspmx10[address] [place], [place] [address]Dr. Airam Tripathi WBC 6.6 103/ul Normal 4.0-11.0 [facility] Comment on above: Performed By: #### C BC ####[facility] [address]xwlpmdmdi[address] [place], [place] [address]Dr. Airam Tripathi OSMOLALITYon 06-15-2022 Osmolality [Osmolality] 269 mosm/kg Critically low 275-295 [facility] Comment on above: Performed By: #### O SMO ####[facility] Iidtvpapeo40[address] [place], [place] [address]Dr. Airam Tripathi PROF 14(COMP METB)on 06-15- 022 Albumin [Mass/Vol] 2.5 g/dL Critically low 3.4-5.0 [facility] Comment on above: Performed By: #### C MP, BNP ####[facility] Isaxmjhput356[address] [place], [place] [address]Dr. Airam Tripathi Albumin/Globulin [Mass ratio] 0.9 {ratio} Normal [facility] Comment on above: Performed By: #### C MP, BNP ####[facility] Bxdcavjtzx3[address] [place], [place] [address]Dr. Airam Tripathi ALP [Catalytic activity/Vol] 128 U/L Critically high 46-116 [facility] Comment on above: Performed By: #### C MP, BNP ####[facility] [address]ssaxxddj[address] [place], [place] [address]Dr. Airam Tripathi ALT [Catalytic activity/Vol] 14 U/L Normal 14-59 [facility] Comment on above: Performed By: #### C MP, BNP ####[facility] Zdfauthjcp88[address] [place], [place] [address]Dr. Airam Tripathi Anion gap [Moles/Vol] 10.4 mmol/L Normal [facility] Comment on above: Performed By: #### C MP, BNP ####[facility] Z[address]mskqmpz76[address] [place], [place] [address]Dr. Airam Tripathi AST [Catalytic activity/Vol] 23 U/L Normal 15-37 [facility] Comment on above: Performed By: #### C MP, BNP ####[facility] Dtasdgglrz[address] [place], [place] [address]Dr. Airam Tripathi Bilirubin [Mass/Vol] 0.2 mg/dL Normal 0.2-1.0 [facility] Comment on above: Performed By: #### C MP, BNP ####[facility] Zoqviltjcb74[address] [place] [address]Dr. Airam Tripathi Calcium [Mass/Vol] 7.4 mg/dL Critically low 8.5-10.1 Th [facility] Comment on above: Performed By: #### C MP, BNP ####[facility] Yztnvrnntc5382 [place] [address]Dr. Airam Tripathi Chloride [Moles/Vol] 99 mmol/L Normal 98-107 [facility] Comment on above: Performed By: #### C MP, BNP ####[facility] [address]kkbqmcs[address] [place], [place] [address]Dr. Airam Tripathi CO2 [Moles/Vol] 24.1 mmol/L Normal 21.0-32.0 [facility] Comment on above: Performed By: #### C MP, BNP ####[facility] [address]bfgcgsnls[address] [place], [place] [address]Dr. Airam Tripathi Creatinine [Mass/Vol] 1.45 mg/dL Critically high 0.55-1.02 [facility] Comment on above: Performed By: #### C MP, BNP ####[facility] [address]vvvvy[address] [place], [place] [address]Dr. Airam Tripathi EGFR-AF CITIZEN OF [place] 45 mL/min/1.73m2 Critically low >=60 [facility] Comment on above: Performed By: #### C MP, BNP ####[facility] Bhbmnxahus[address] [place], [place] [address]Dr. Airam Tripathi EGFR-NON AF CITIZEN OF [place] 37 mL/min/1.73m2 Critically low >=60 [facility] Comment on above: Performed By: #### C MP, BNP ####[facility] Vimgfjgzdj4[address] [place], [place] [address]Dr. Airam Tripathi Globulin (S) [Mass/Vol] 2.8 g/dL Normal [facility] Comment on above: Performed By: #### C MP, BNP ####[facility] Etqiuccsjy[address] [place], [place] [address]Dr. Airam Tripathi Glucose [Mass/Vol] 82 mg/dL Normal 74-106 [facility] Comment on above: Performed By: #### C MP, BNP ####[facility] Uydlqlwrbf0425[address] [place], [place] [address]Dr. Airam Tripathi Potassium [Moles/Vol] 4.5 mmol/L Normal 3.5-5.1 [facility] Comment on above: Performed By: #### C MP, BNP ####[facility] Xfniptybgz5[address] [place], [place] [address]Dr. Airam Tripathi Protein [Mass/Vol] 5.3 g/dL Critically low 6.4-8.2 [facility] Comment on above: Performed By: #### C MP, BNP ####[facility] Igpwbznemj[address] [place], [place] [address]Dr. Airam Tripathi Sodium [Moles/Vol] 129 mmol/L Critically low 136-145 [facility] Comment on above: Performed By: #### C MP, BNP ####[facility] Mrkxctkkhf[address] [place], [place] [address]Dr. Airam Tripathi Urea nitrogen [Mass/Vol] 35.0 mg/dL Critically high 7.0-18.0 [facility] Comment on above: Performed By: #### C MP, BNP ####[facility] Mexkhtcryu65[address] [place], [place] [address]Dr. Airam Tripathi Urea nitrogen/Creatinine [Mass ratio] 24.1 mg/mg Normal [facility] Comment on above: Performed By: #### C MP, BNP ####[facility] Aeefscpiri4[address] [place], [place] [address]Dr. Airam Tripathi T3, TOTAL (TRIIODOTHYRONINE) on 06-15-2022 T3, TOTAL 113 ng/dL Normal 71-180 [facility] Comment on above: Performed By: #### T 3TOTAL ####[facility] Tjjlkzazrh6[address] [place], [place] [address]Dr. Airam Tripathi BNPon 06-14-2022 Natriuretic peptide B (Bld) [Mass/Vol] 1024.0 pg/mL Critically high <=900.0 [facility] Comment on above: Performed By: #### B DONKEY ENGINE FIRER/FIREMAN, CMP ####[facility] [address] [place] [phone]. Airam Tripathi CARDIAC CONSUELO 3-6on 2 CK [Catalytic activity/Vol] 116 U/L Normal 26-192 [facility] Comment on above: Performed By: #### C MREP ####[facility] P[address]chemyho[address] [place] [phone]. Airam Tripathi CK.MB [Mass/Vol] ng/mL Normal <=3.60 [facility] Comment on above: Performed By: #### C MREP ####[facility] Eybnbqbajj[address] [place] [address]Dr. Airam Tripathi HSTROP 6.0 pg/mL Normal 4.0-51.3 [facility] Comment on above: Result Comment: CUT- OFF POINTS HAVE BEEN ESTABLISHED BASED ON THE FOURTH UNIVERSAL DEFINITIONS OF MYOCARDIALINFARCTION. THE UPPER REFERENCE LIMIT (URL) OF TROPONIN, DEFINED THE 99TH PERCENTILE OFcTnI DISTRIBUTION IN A REFERENCE POPULATION, HAS BEEN CONFIRMED THE DECISION THRESHOLDFOR AR DIAGNOSIS. Performed By: #### C MREP ####[facility] [address]pxpqjo[address] [place] [address]Dr. Airam Tripathi CBC AUTO DIFFon 06-14-2022 BASO # 0.0 103/ul Normal 0.0-0.1 [facility] Comment on above: Performed By: #### C BC ####[facility] [address]guhe[address] [place] [address]Dr. Airam Tripathi Basophils/100 WBC (Bld) 0.3 % Normal 0.2-2.0 [facility] Comment on above: Performed By: #### C BC ####[facility] Awhjkdnhor6[address] [place] [phone]. Airam Tripathi EO # 0.2 103/ul Normal 0.0-0.7 [facility] Comment on above: Performed By: #### C BC ####[facility] Lbkjfszwnj[address] [place], [place] [id number]. Airam Tripathi Eosinophils/100 WBC (Bld) 2.0 % Normal 0.9-7.0 [facility] Comment on above: Performed By: #### C BC ####[facility] Hlctvlparj22[address] [place] [address]Dr. Airam Tripathi Erythrocyte distribution width (RBC) [Ratio] 12.8 % Normal 11.0-15.0 [facility] Comment on above: Performed By: #### C BC ####[facility] Gfjiblwheb[address] [place], [place] [address]Dr. Airam Tripathi Hematocrit (Bld) [Volume fraction] 27.4 % Critically low 36.0-48.0 [facility] Comment on above: Performed By: #### C BC ####[facility] Oxavddgmtb9048[address] [place], [place] [address]Dr. Airam Tripathi Hemoglobin (Bld) [Mass/Vol] 8.7 g/dL Critically low 12.0-16.0 [facility] Comment on above: Performed By: #### C BC ####[facility] Artbvnddws124[address] [place], [place] [address]Dr. Airam Tripathi IG # 0.11 10e3/ul Critically high 0.00-0.03 [facility] Comment on above: Performed By: #### C BC ####[facility] Ncxpmqdxea9932[address] [place], [place] [address]Dr. Airam Tripathi IG % 1.1 % Critically high 0.0-0.5 [facility] Comment on above: Performed By: #### C BC ####[facility] Msfuadycsr2927[address] [place], [place] [address]Dr. Airam Tripathi LYMPH # 0.9 103/ul Critically low 1.2-3.8 [facility] Comment on above: Performed By: #### C BC ####[facility] Qyyjgiycuu85[address] [place], [place] [address]Dr. Airam Tripathi Lymphocytes/100 WBC (Bld) 9.7 % Critically low 20.5-60.0 [facility] Comment on above: Performed By: #### C BC ####[facility] Qabxtfhias[address] [place], [place] [address]Dr. Airam Tripathi MANUAL DIFF REQ NO Normal [facility] Comment on above: Performed By: #### C BC ####[facility] Ftrmjjpwbd48[address] [place] [phone]. Airam Deuce MCH (RBC) [Entitic mass] 30.0 pg Normal 26.7-34.0 [facility] Comment on above: Performed By: #### C BC ####[facility] Axqyfyqurl9606 [place] [phone]. Airam Deuce MCHC (RBC) [Mass/Vol] 31.8 g/dL Normal 29.9-35.2 [facility] Comment on above: Performed By: #### C BC ####[facility] Knwgcdvdug16[address] [place] [address]Dr. Seleanneil Tripathi MCV (RBC) [Entitic vol] 94.5 fL Normal 81.0-99.0 [facility] Comment on above: Performed By: #### C BC ####[facility] Sgbwzxojws28[address] [place], [place] [address]Dr. Airam Tripathi MONO # 0.6 103/ul Normal 0.3-0.8 [facility] Comment on above: Performed By: #### C BC ####[facility] Jmrpowopat7104[address] [place], [place] [address]Dr. Airam Tripathi Monocytes/100 WBC (Bld) 5.7 % Normal 1.7-12.0 [facility] Comment on above: Performed By: #### C BC ####[facility] Krmlwvqnuf8[address] [place], [place] [address]Dr. Airam Tripathi NEUT # 7.8 103/ul Critically high 1.4-6.5 [facility] Comment on above: Performed By: #### C BC ####[facility] Evznsbcujg[address] [place], [place] [address]Dr. Airam Tripathi Neutrophils/100 WBC (Bld) 81.2 % Critically high 43.0-75.0 [facility] Comment on above: Performed By: #### C BC ####[facility] Yzwcuzvhbk30[address] [place] [address]Dr. Airam Tripathi Platelet mean volume (Bld) [Entitic vol] 8.6 fL Critically low 9.5-13.5 [facility] Comment on above: Performed By: #### C BC ####[facility] Lt[address]ntapfh[address] [place] [address]Dr. Selenaneil Tripathi PLT 283 103/ul Normal 150-450 [facility] Comment on above: Performed By: #### C BC ####[facility] Obeqvskfhz[address] [place] [phone]. Airam Tripathi RBC 2.90 106/ul Critically low 4.20-5.40 [facility] Comment on above: Performed By: #### C BC ####[facility] Obxloknhvm34[address] [place] [phone]. Selenaneil Deuce WBC 9.6 103/ul Normal 4.0-11.0 [facility] Comment on above: Performed By: #### C BC ####[facility] Eksio[address]new[address] [place] [address]Dr. Airam Tripathi OSMOLALITYon 06-14-2022 Osmolality [Osmolality] 273 mosm/kg Critically low 275-295 [facility] Comment on above: Performed By: #### O SMO ####[facility] Fxzvjqfefq5[address] [place] [address]Dr. Airam Tripathi PROF 14(COMP METB)on 022 Albumin [Mass/Vol] 3.2 g/dL Critically low 3.4-5.0 [facility] Comment on above: Performed By: #### B DONKEY ENGINE FIRER/FIREMAN, CMP ####[facility] [address]qmtppl[address] [place] [address]Dr. Airam Tripathi Albumin/Globulin [Mass ratio] 1.0 {ratio} Normal [facility] Comment on above: Performed By: #### B DONKEY ENGINE FIRER/FIREMAN, CMP ####[facility] Ocyamgzlfd[address] [place] [address]Dr. Airam Tripathi ALP [Catalytic activity/Vol] 154 U/L Critically high 46-116 [facility] Comment on above: Performed By: #### B DONKEY ENGINE FIRER/FIREMAN, CMP ####[facility] Zz[address]zfzwmd74[address] [place] [address]Dr. Airam Tripathi ALT [Catalytic activity/Vol] 17 U/L Normal 14-59 [facility] Comment on above: Performed By: #### B DONKEY ENGINE FIRER/FIREMAN, CMP ####[facility] Qppewjcjuv5[address] [place] [address]Dr. Airam Tripathi Anion gap [Moles/Vol] 12.0 mmol/L Normal Th [facility] Comment on above: Performed By: #### B DONKEY ENGINE FIRER/FIREMAN, CMP ####[facility] Ydavaiecak[address] [place], [place] [address]Dr. Airam Tripathi AST [Catalytic activity/Vol] 25 U/L Normal 15-37 [facility] Comment on above: Performed By: #### B DONKEY ENGINE FIRER/FIREMAN, CMP ####[facility] Igklfipmhc[address] [place], [place] [address]Dr. Airam Tripathi Bilirubin [Mass/Vol] 0.3 mg/dL Normal 0.2-1.0 [facility] Comment on above: Performed By: #### B DONKEY ENGINE FIRER/FIREMAN, CMP ####[facility] Kjghbrytca[address] [place], [place] [address]Dr. Airam Tripathi Calcium [Mass/Vol] 7.6 mg/dL Critically low 8.5-10.1 [facility] Comment on above: Performed By: #### B DONKEY ENGINE FIRER/FIREMAN, CMP ####[facility] Wqnpnrffgd54[address] [place], [place] [address]Dr. Airam Tripathi Chloride [Moles/Vol] 92 mmol/L Critically low 98-107 [facility] Comment on above: Performed By: #### B DONKEY ENGINE FIRER/FIREMAN, CMP ####[facility] Swdhaqrtoa65[address] [place], [place] [address]Dr. Airam Tripathi CO2 [Moles/Vol] 25.2 mmol/L Normal 21.0-32.0 [facility] Comment on above: Performed By: #### B DONKEY ENGINE FIRER/FIREMAN, CMP ####[facility] Afnprbyssg[address] [place], [place] [address]Dr. Airam Tripathi Creatinine [Mass/Vol] 1.83 mg/dL Critically high 0.55-1.02 [facility] Comment on above: Performed By: #### B DONKEY ENGINE FIRER/FIREMAN, CMP ####[facility] Xyitqcugss15[address] [place], [place] [address]Dr. Airam Tripathi EGFR-AF CITIZEN OF [place] 34 mL/min/1.73m2 Critically low >=60 [facility] Comment on above: Performed By: #### B DONKEY ENGINE FIRER/FIREMAN, CMP ####[facility] Okcnzryjpk95[address] [place], [place] [address]Dr. Airam Tripathi EGFR-NON AF CITIZEN OF [place] 28 mL/min/1.73m2 Critically low >=60 [facility] Comment on above: Performed By: #### B DONKEY ENGINE FIRER/FIREMAN, CMP ####[facility] Bybueeyjou9[address] [place], [place] [address]Dr. Airam Deuce Globulin (S) [Mass/Vol] 3.1 g/dL Normal [facility] Comment on above: Performed By: #### B DONKEY ENGINE FIRER/FIREMAN, CMP ####[facility] Vyalzpfmrq[address] [place], [place] [address]Dr. Selenaneil Deuce Glucose [Mass/Vol] 77 mg/dL Normal 74-106 [facility] Comment on above: Performed By: #### B DONKEY ENGINE FIRER/FIREMAN, CMP ####[facility] Xlhesuvftm[address] [place], [place] [address]Dr. Airam Tripathi Potassium [Moles/Vol] 4.2 mmol/L Normal 3.5-5.1 [facility] Comment on above: Performed By: #### B DONKEY ENGINE FIRER/FIREMAN, CMP ####[facility] Zuptywvrde7179[address] [place], [place] [address]Dr. Airam Deuce Protein [Mass/Vol] 6.3 g/dL Critically low 6.4-8.2 [facility] Comment on above: Performed By: #### B DONKEY ENGINE FIRER/FIREMAN, CMP ####[facility] Kqccmwmyou4812[address] [place], [place] [address]Dr. Airam Deuce Sodium [Moles/Vol] 125 mmol/L Critically low 136-145 [facility] Comment on above: Performed By: #### B DONKEY ENGINE FIRER/FIREMAN, CMP ####[facility] Gxyrwrgfjz[address] [place], [place] [address]Dr. Selenaneil Deuce Urea nitrogen [Mass/Vol] 35.0 mg/dL Critically high 7.0-18.0 [facility] Comment on above: Performed By: #### B DONKEY ENGINE FIRER/FIREMAN, CMP ####[facility] Tle[address]vvevy39[address] [place] [address]Dr. Airam Tripathi Urea nitrogen/Creatinine [Mass ratio] 19.1 mg/mg Normal [facility] Comment on above: Performed By: #### B DONKEY ENGINE FIRER/FIREMAN, CMP ####[facility] [address]fjmrkdho[address] [place], [place] [address]Dr. Airam Tripathi UA RANDOM W/MICROSCOPICon BACTERIA TRACE Abnormal NONE SEEN [facility] Comment on above: Performed By: #### U AMIC ####[facility] Agyirnhshk[address] [place], [place] [address]Dr. Airam Tripathi Bilirubin Ql (U) Negative Normal NEGATIVE [facility] Comment on above: Performed By: #### U AMIC ####[facility] Xcqprgbdgp[address] [place], [place] [address]Dr. Airam Tripathi CAST NONE SEEN Normal NONE SEEN [facility] Comment on above: Performed By: #### U AMIC ####[facility] Hrwnnzipcg040[address] [place], [place] [address]Dr. Airam Tripathi Clarity (U) CLEAR Normal CLEAR [facility] Comment on above: Performed By: #### U AMIC ####[facility] Lkihxmturt92[address] [place], [place] [address]Dr. Airam Tripathi Color (U) LT. YELLOW Normal YELLOW [facility] Comment on above: Performed By: #### U AMIC ####[facility] Rqknvsveys76[address] [place], [place] [address]Dr. Airam Tripathi Crystals LM Nom (Urine sed) NONE SEEN Normal NONE SEEN [facility] Comment on above: Performed By: #### U AMIC ####[facility] Ohnwvzkbye9[address] [place], [place] [address]Dr. Airam Tripathi Epithelial cells LM Ql (Urine sed) FEW Abnormal NONE SEEN /RARE [facility] Comment on above: Performed By: #### U AMIC ####[facility] Faysxqgxbv[address] [place], [place] [address]Dr. Airam Tripathi Glucose Ql (U) Negative Normal NEGATIVE [facility] Comment on above: Performed By: #### U AMIC ####[facility] Bquaeskezf16[address] [place] [address]Dr. Airam Tripathi Hemoglobin Ql (U) Negative Normal NEGATIVE [facility] Comment on above: Performed By: #### U AMIC ####[facility] T[address]bnvzjled[address] [place], [place] [address]Dr. Airam Tripathi Ketones Ql (U) Negative Normal NEGATIVE [facility] Comment on above: Performed By: #### U AMIC ####[facility] Jpbhrtilgo4[address] [place], [place] [address]Dr. Airam Tripathi LEUKOCYTES MODERATE Abnormal NEGATIVE [facility] Comment on above: Performed By: #### U AMIC ####[facility] Ttlkwtqwxh4[address] [place], [place] [address]Dr. Airam Tripathi MUCOUS NONE SEEN Normal NONE SEEN [facility] Comment on above: Performed By: #### U AMIC ####[facility] Gjjhptnsap[address] [place], [place] [address]Dr. Airam Tripathi Nitrite Ql (U) Negative Normal NEGATIVE [facility] Comment on above: Performed By: #### U AMIC ####[facility] Tnxxbybndx5[address] [place], [place] [address]Dr. Airam Tripathi pH (U) 5.5 [pH] Normal 5-9 [facility] Comment on above: Performed By: #### U AMIC ####[facility] Ekosznfdxe0670[address] [place], [place] [address]Dr. Airam Tripathi RBC 0-2 Normal 0-2 [facility] Comment on above: Performed By: #### U AMIC ####[facility] Olffhfpzjb19[address] [place], [place] [address]Dr. Airam Tripathi SPEC GRAVITY 1.020 Normal 1.005-<=1.02 5 [facility] Comment on above: Performed By: #### U AMIC ####[facility] Vfjqqjlbgs[address] [place], [place] [address]Dr. Airam Tripathi UA PROTEIN Negative Normal NEGATIVE/ TRACE [facility] Comment on above: Performed By: #### U AMIC ####[facility] [address]aifvtibv87[address] [place], [place] [address]Dr. Airam Tripathi Urobilinogen Qn (U) 0.2 {Ligia'U}/dL Normal 0.2 - 1. 0 [facility] Comment on above: Performed By: #### U AMIC ####[facility] Xxlcggpltp9876 [place] [address]Dr. Airam Tripathi WBC 5-10 Abnormal NONE SEEN [facility] Comment on above: Performed By: #### U AMIC ####[facility] Eizaicvkgh16[address] [place] [address]Dr. Airam Tripathi BNPon 06-13-2022 Natriuretic peptide B (Bld) [Mass/Vol] 1496.0 pg/mL Critically high <=900.0 [facility] Comment on above: Performed By: #### T 4, BNP, MG, TSH, CMADM, CRP, CMP ####[facility] Tybsmqmzbr[address] [place] [address]Dr. Airam Tripathi CARDIAC CONSUELO 3-6on 2 CK [Catalytic activity/Vol] 125 U/L Normal 26-192 [facility] Comment on above: Performed By: #### C MREP ####[facility] Vngqgvbzip34[address] [place] [address]Dr. Airam Tripathi CK.MB [Mass/Vol] ng/mL Normal <=3.60 [facility] Comment on above: Performed By: #### C MREP ####[facility] [address]hvnnsqj[address] [place], [place] [address]Dr. Airam Deuce HSTROP 5.8 pg/mL Normal 4.0-51.3 [facility] Comment on above: Result Comment: CUT- OFF POINTS HAVE BEEN ESTABLISHED BASED ON THE FOURTH UNIVERSAL DEFINITIONS OF MYOCARDIALINFARCTION. THE UPPER REFERENCE LIMIT (URL) OF TROPONIN, DEFINED THE 99TH PERCENTILE OFcTnI DISTRIBUTION IN A REFERENCE POPULATION, HAS BEEN CONFIRMED THE DECISION THRESHOLDFOR AR DIAGNOSIS. Performed By: #### C MREP ####[facility] [address]cnoymuk[address] [place], [place] [address]Dr. Airam Tripathi CARDIAC CONSUELO ADMITon 022 CK [Catalytic activity/Vol] 121 U/L Normal 26-192 [facility] Comment on above: Performed By: #### T 4, BNP, MG, TSH, CMADM, CRP, CMP ####[facility] Nhgybpdiap26[address] [place] [address]Dr. Airam Tripathi CK.MB [Mass/Vol] 3.06 ng/mL Normal <=3.60 [facility] Comment on above: Performed By: #### T 4, BNP, MG, TSH, CMADM, CRP, CMP ####[facility] Ozjupfasko[address] [place] [address]Dr. Airam Tripathi HSTROP 6.9 pg/mL Normal 4.0-51.3 [facility] Comment on above: Result Comment: CUT- OFF POINTS HAVE BEEN ESTABLISHED BASED ON THE FOURTH UNIVERSAL DEFINITIONS OF MYOCARDIALINFARCTION. THE UPPER REFERENCE LIMIT (URL) OF TROPONIN, DEFINED THE 99TH PERCENTILE OFcTnI DISTRIBUTION IN A REFERENCE POPULATION, HAS BEEN CONFIRMED THE DECISION THRESHOLDFOR AR DIAGNOSIS. Performed By: #### T 4, BNP, MG, TSH, CMADM, CRP, CMP ####[facility] Izeqgmjbni14[address] [place] [address]Dr. Airam Tripathi KATHY 124 ng/mL Critically high 9-82 [facility] Comment on above: Performed By: #### T 4, BNP, MG, TSH, CMADM, CRP, CMP ####[facility] [address]znyrrivs[address] [place] [address]Dr. Airam Tripathi CBC AUTO DIFFon 06-13-2022 BASO # 0.0 103/ul Normal 0.0-0.1 [facility] Comment on above: Performed By: #### C BC ####[facility] Hnigqtpvrh90[address] [place] [address]Dr. Airam Tripathi Basophils/100 WBC (Bld) 0.2 % Normal 0.2-2.0 [facility] Comment on above: Performed By: #### C BC ####[facility] Qratlyhyzq1118 [place] [address]Dr. Airam Tripathi EO # 0.2 103/ul Normal 0.0-0.7 [facility] Comment on above: Performed By: #### C BC ####[facility] Ffdmnqatds0932 [place] [phone]. Airam Tripathi Eosinophils/100 WBC (Bld) 1.5 % Normal 0.9-7.0 [facility] Comment on above: Performed By: #### C BC ####[facility] Gyoxhwrjht500[address] [place] [phone]. Airam Tripathi Erythrocyte distribution width (RBC) [Ratio] 12.7 % Normal 11.0-15.0 [facility] Comment on above: Performed By: #### C BC ####[facility] I[address]dcdyhzc[address] [place], [place] [address]Dr. Airam Tripathi Hematocrit (Bld) [Volume fraction] 30.0 % Critically low 36.0-48.0 [facility] Comment on above: Performed By: #### C BC ####[facility] Jjliphttol[address] [place], [place] [address]Dr. Airam Tripathi Hemoglobin (Bld) [Mass/Vol] 9.6 g/dL Critically low 12.0-16.0 [facility] Comment on above: Performed By: #### C BC ####[facility] Gxxxkrcifs16[address] [place], [place] [address]Dr. Airam Tripathi IG # 0.11 10e3/ul Critically high 0.00-0.03 [facility] Comment on above: Performed By: #### C BC ####[facility] Mkzwfdyzyf[address] [place], [place] [address]Dr. Airam Tripathi IG % 1.1 % Critically high 0.0-0.5 [facility] Comment on above: Performed By: #### C BC ####[facility] Mayhfijier[address] [place], [place] [address]Dr. Airam Tripathi LYMPH # 1.5 103/ul Normal 1.2-3.8 [facility] Comment on above: Performed By: #### C BC ####[facility] Chqhppjrcq[address] [place], [place] [address]Dr. Airam Tripathi Lymphocytes/100 WBC (Bld) 14.9 % Critically low 20.5-60.0 [facility] Comment on above: Performed By: #### C BC ####[facility] Cyvevcixmg57[address] [place] [address]Dr. Airam Tripathi MANUAL DIFF REQ NO Normal [facility] Comment on above: Performed By: #### C BC ####[facility] Okqlgpyosl7[address] [place] [phone]. Airam Tripathi MCH (RBC) [Entitic mass] 30.0 pg Normal 26.7-34.0 [facility] Comment on above: Performed By: #### C BC ####[facility] Ekvrofawvf1623 [place] [phone]. Airam Tripathi MCHC (RBC) [Mass/Vol] 32.0 g/dL Normal 29.9-35.2 [facility] Comment on above: Performed By: #### C BC ####[facility] [address]kbwswnq[address] [place], [place] [address]Dr. Airam Tripathi MCV (RBC) [Entitic vol] 93.8 fL Normal 81.0-99.0 [facility] Comment on above: Performed By: #### C BC ####[facility] [address]mdtcbhjq[address] [place], [place] [address]Dr. Airam Tripathi MONO # 0.8 103/ul Normal 0.3-0.8 [facility] Comment on above: Performed By: #### C BC ####[facility] [address]ofmeyhxci[address] [place], [place] [address]Dr. Airam Triapthi Monocytes/100 WBC (Bld) 7.3 % Normal 1.7-12.0 [facility] Comment on above: Performed By: #### C BC ####[facility] [address]swuoeim[address] [place], [place] [address]Dr. Airam Tripathi NEUT # 7.8 103/ul Critically high 1.4-6.5 [facility] Comment on above: Performed By: #### C BC ####[facility] Tazaauxh[address] [place], [place] [id number]. Airam Tripathi Neutrophils/100 WBC (Bld) 75.0 % Normal 43.0-75.0 [facility] Comment on above: Performed By: #### C BC ####[facility] [address] [place] [id number]. Airam Tripathi Platelet mean volume (Bld) [Entitic vol] 9.1 fL Critically low 9.5-13.5 [facility] Comment on above: Performed By: #### C BC ####[facility] Twtkmjclsm[address] [place] [id number]. Airam Tripathi PLT 341 103/ul Normal 150-450 [facility] Comment on above: Performed By: #### C BC ####[facility] Eifyznxcma3719 [place], [place] [address]Ms. Airam Tripathi RBC 3.20 106/ul Critically low 4.20-5.40 [facility] Comment on above: Performed By: #### C BC ####[facility] Ptomegxmbi[address] [place] [id number]. Airam Tripathi WBC 10.4 103/ul Normal 4.0-11.0 [facility] Comment on above: Performed By: #### C BC ####[facility] Dsagmhjkpb1736 [place] [id number]. Airam Tripathi CRPon 06-13-2022 CRP [Mass/Vol] mg/L Normal <=1.0 [facility] Comment on above: Performed By: #### T 4, BNP, MG, TSH, CMADM, CRP, CMP ####[facility] Lvgelvevae[address] [place] [id number]. Airam Tripathi CT HEAD WO CONon 06-13-2022 CT HEAD WO CON Normal [facility] Covid-19 PCR (CVDTB)on 05-26 SARS-CoV-2 (COVID-19) RNA MIKE+probe Ql (Unsp spec) Not detected Normal NOT DETECTED [facility] Comment on above: Result Comment: When [...] for this test is supported by the [place] of Health and Human Service's declaration that [...] be used). Performed By: #### C VDTBH ####[facility] Zexvigzmgn[address] [place] [address]Dr. Airam Tripathi LACTATE/LACTIC ACIDon 2021 Lactate [Moles/Vol] 0.5 mmol/L Normal 0.4-1.9 [facility] Comment on above: Performed By: #### L ACT ####[facility] [address] [place], [place] [address]Dr. Airam Tripathi MAGNESIUMon 06-13-2022 Magnesium [Mass/Vol] 1.9 mg/dL Normal 1.8-2.4 [facility] Comment on above: Performed By: #### T 4, BNP, MG, TSH, CMADM, CRP, CMP ####[facility] Wmqzpkxgkz33[address] [place] [address]Dr. Airam Tripathi PROF 14(COMP METB)on 022 Albumin [Mass/Vol] 3.8 g/dL Normal 3.4-5.0 [facility] Comment on above: Performed By: #### T 4, BNP, MG, TSH, CMADM, CRP, CMP ####[facility] Hrkvnezzss[address] [place] [address]Dr. Airam Tripathi Albumin/Globulin [Mass ratio] 1.1 {ratio} Normal [facility] Comment on above: Performed By: #### T 4, BNP, MG, TSH, CMADM, CRP, CMP ####[facility] Usoumohzit[address] [place] [address]Dr. Airam Tripathi ALP [Catalytic activity/Vol] 161 U/L Critically high 46-116 [facility] Comment on above: Performed By: #### T 4, BNP, MG, TSH, CMADM, CRP, CMP ####[facility] Gjculjutya[address] [place] [address]Dr. Airam Tripathi ALT [Catalytic activity/Vol] 21 U/L Normal 14-59 [facility] Comment on above: Performed By: #### T 4, BNP, MG, TSH, CMADM, CRP, CMP ####[facility] Riujuksezd[address] [place] [address]Dr. Airam Tripathi Anion gap [Moles/Vol] 12.6 mmol/L Normal Th e [facility] Comment on above: Performed By: #### T 4, BNP, MG, TSH, CMADM, CRP, CMP ####[facility] Rbblofprqo27[address] [place] [address]Dr. Airam Tripathi AST [Catalytic activity/Vol] 30 U/L Normal 15-37 [facility] Comment on above: Performed By: #### T 4, BNP, MG, TSH, CMADM, CRP, CMP ####[facility] Oeojrfmura[address] [place] [address]Dr. Airam Tripathi Bilirubin [Mass/Vol] 0.3 mg/dL Normal 0.2-1.0 [facility] Comment on above: Performed By: #### T 4, BNP, MG, TSH, CMADM, CRP, CMP ####[facility] Huioivfztc45[address] [place] [address]Dr. Airam Tripathi Calcium [Mass/Vol] 8.8 mg/dL Normal 8.5-10.1 [facility] Comment on above: Performed By: #### T 4, BNP, MG, TSH, CMADM, CRP, CMP ####[facility] Iadhjeclck35[address] [place] [address]Dr. Airam Tripathi Chloride [Moles/Vol] 91 mmol/L Critically low 98-107 [facility] Comment on above: Performed By: #### T 4, BNP, MG, TSH, CMADM, CRP, CMP ####[facility] [address]cszpcrcra[address] [place], [place] [address]Dr. Yilan Tripathi CO2 [Moles/Vol] 26.9 mmol/L Normal 21.0-32.0 [facility] Comment on above: Performed By: #### T 4, BNP, MG, TSH, CMADM, CRP, CMP ####[facility] Yhyxnulvli7[address] [place] [address]Dr. Airam Tripathi Creatinine [Mass/Vol] 1.83 mg/dL Critically high 0.55-1.02 [facility] Comment on above: Performed By: #### T 4, BNP, MG, TSH, CMADM, CRP, CMP ####[facility] Zalezzkmpt9752 [place] [address]Dr. Airam Tripathi EGFR-AF CITIZEN OF [place] 34 mL/min/1.73m2 Critically low >=60 [facility] Comment on above: Performed By: #### T 4, BNP, MG, TSH, CMADM, CRP, CMP ####[facility] Rsmcpugfas[address] [place], [place] [address]Dr. Airam Tripathi EGFR-NON AF CITIZEN OF [place] 28 mL/min/1.73m2 Critically low >=60 [facility] Comment on above: Performed By: #### T 4, BNP, MG, TSH, CMADM, CRP, CMP ####[facility] Gwxpgqphhq3[address] [place], [place] [address]Dr. Airam Tripathi Globulin (S) [Mass/Vol] 3.5 g/dL Normal [facility] Comment on above: Performed By: #### T 4, BNP, MG, TSH, CMADM, CRP, CMP ####[facility] Ebuowngkyb[address] [place], [place] [address]Dr. Airam Tripathi Glucose [Mass/Vol] 96 mg/dL Normal 74-106 [facility] Comment on above: Performed By: #### T 4, BNP, MG, TSH, CMADM, CRP, CMP ####[facility] Vdkzonfpzx13[address] [place], [place] [address]Dr. Airam Tripathi Potassium [Moles/Vol] 4.5 mmol/L Normal 3.5-5.1 [facility] Comment on above: Performed By: #### T 4, BNP, MG, TSH, CMADM, CRP, CMP ####[facility] Zquzrlhqfs9046 [place] [address]Dr. Airam Tripathi Protein [Mass/Vol] 7.3 g/dL Normal 6.4-8.2 [facility] Comment on above: Performed By: #### T 4, BNP, MG, TSH, CMADM, CRP, CMP ####[facility] Fimbnprpbv9757 [place] [address]Dr. Ariam Tripathi Sodium [Moles/Vol] 126 mmol/L Critically low 136-145 [facility] Comment on above: Performed By: #### T 4, BNP, MG, TSH, CMADM, CRP, CMP ####[facility] Bxcipusiwt[address] [place], [place] [address]Dr. Airam Tripathi Urea nitrogen [Mass/Vol] 34.0 mg/dL Critically high 7.0-18.0 [facility] Comment on above: Performed By: #### T 4, BNP, MG, TSH, CMADM, CRP, CMP ####[facility] Yzrvjrkgel[address] [place], [place] [address]Dr. Airam Tripathi Urea nitrogen/Creatinine [Mass ratio] 18.6 mg/mg Normal [facility] Comment on above: Performed By: #### T 4, BNP, MG, TSH, CMADM, CRP, CMP ####[facility] Uqwscfrtfu[address] [place], [place] [address]Dr. Airam Tripathi Albumin [Mass/Vol] 3.4 g/dL Normal 3.4-5.0 [facility] Comment on above: Performed By: #### C MP ####[facility] Axmetxddoh[address] [place], [place] [address]Dr. Airam Tripathi Albumin/Globulin [Mass ratio] 1.0 {ratio} Normal [facility] Comment on above: Performed By: #### C MP ####[facility] Frowrgpyuw[address] [place], [place] [address]Dr. Airam Tripathi ALP [Catalytic activity/Vol] 151 U/L Critically high 46-116 [facility] Comment on above: Performed By: #### C MP ####[facility] Ratlwnufna15[address] [place] [address]Dr. Airam Tripathi ALT [Catalytic activity/Vol] 20 U/L Normal 14-59 [facility] Comment on above: Performed By: #### C MP ####[facility] Oifofzejci9430 [place] [address]Dr. Airam Tripathi Anion gap [Moles/Vol] 11.7 mmol/L Normal Th e [facility] Comment on above: Performed By: #### C MP ####[facility] Noaukyoqtg3[address] [place], [place] [address]Dr. Airam Tripathi AST [Catalytic activity/Vol] 28 U/L Normal 15-37 [facility] Comment on above: Performed By: #### C MP ####[facility] Nkmehtdhsb[address] [place], [place] [address]Dr. Airam Tripathi Bilirubin [Mass/Vol] 0.3 mg/dL Normal 0.2-1.0 [facility] Comment on above: Performed By: #### C MP ####[facility] Yduovvoxbe[address] [place], [place] [address]Dr. Airam Tripathi Calcium [Mass/Vol] 8.5 mg/dL Normal 8.5-10.1 [facility] Comment on above: Performed By: #### C MP ####[facility] Wxduemnpyh[address] [place], [place] [address]Dr. Airam Tripathi Chloride [Moles/Vol] 91 mmol/L Critically low 98-107 [facility] Comment on above: Performed By: #### C MP ####[facility] Jdnpsjrhax7[address] [place], [place] [address]Dr. Airam Tripathi CO2 [Moles/Vol] 28.3 mmol/L Normal 21.0-32.0 [facility] Comment on above: Performed By: #### C MP ####[facility] Xfcwmuivjh[address] [place], [place] [address]Dr. Airam Tripathi Creatinine [Mass/Vol] 1.68 mg/dL Critically high 0.55-1.02 [facility] Comment on above: Performed By: #### C MP ####[facility] Cboapnlyes46[address] [place] [address]Dr. Airam Tripathi EGFR-AF CITIZEN OF [place] 38 mL/min/1.73m2 Critically low >=60 [facility] Comment on above: Performed By: #### C MP ####[facility] Kvizwtgmyk5459 [place] [address]Dr. Airam Tripathi EGFR-NON AF CITIZEN OF [place] 31 mL/min/1.73m2 Critically low >=60 [facility] Comment on above: Performed By: #### C MP ####[facility] Wckcwlsttj[address] [place], [place] [address]Dr. Airam Deuce Globulin (S) [Mass/Vol] 3.5 g/dL Normal [facility] Comment on above: Performed By: #### C MP ####[facility] Ebqgxjrrnj[address] [place], [place] [address]Dr. Airam Deuce Glucose [Mass/Vol] 74 mg/dL Normal 74-106 [facility] Comment on above: Performed By: #### C MP ####[facility] Nnjlzfvvqr8[address] [place], [place] [address]Dr. Airam Deuce Potassium [Moles/Vol] 4.0 mmol/L Normal 3.5-5.1 [facility] Comment on above: Performed By: #### C MP ####[facility] Hexjxzlhtm94[address] [place], [place] [address]Dr. Airam Deuce Protein [Mass/Vol] 6.9 g/dL Normal 6.4-8.2 [facility] Comment on above: Performed By: #### C MP ####[facility] Zklyjxuaka86[address] [place], [place] [address]Dr. Airam Deuce Sodium [Moles/Vol] 127 mmol/L Critically low 136-145 [facility] Comment on above: Performed By: #### C MP ####[facility] Pxqfchpcca[address] [place], [place] [address]Dr. Airam Deuce Urea nitrogen [Mass/Vol] 29.0 mg/dL Critically high 7.0-18.0 [facility] Comment on above: Performed By: #### C MP ####[facility] Nbykiixlxj[address] [place], [place] [address]Dr. Airam Tripathi Urea nitrogen/Creatinine [Mass ratio] 17.3 mg/mg Normal [facility] Comment on above: Performed By: #### C MP ####[facility] Twhrjazutc[address] [place], [place] [address]Dr. Airam Tripathi T4on 06-13-2022 T4 [Mass/Vol] 6.80 ug/dL Normal 4.80-13.90 [facility] Comment on above: Performed By: #### T 4, BNP, MG, TSH, CMADM, CRP, CMP ####[facility] Xsfrlhledk[address] [place], [place] [address]Dr. Airam Tripathi TSHon 06-13-2022 TSH 0.101 uIU/mL Critically low 0.358-3.740 [facility] Comment on above: Performed By: #### T 4, BNP, MG, TSH, CMADM, CRP, CMP ####[facility] Lpzfczpyfm9[address] [place], [place] [address]Dr. Airam Tripathi OSMOLALITYon 06-08-2022 Osmolality [Osmolality] 272 mosm/kg Critically low 275-295 [facility] Comment on above: Performed By: #### O SMO ####[facility] Ubcqetrvve[address] [place], [place] [address]Dr. Airam Tripathi CBC AUTO DIFFon 06-06-2022 BASO # 0.0 103/ul Normal 0.0-0.1 [facility] Comment on above: Performed By: #### C BC ####[facility] Jlwpmllyxn[address] [place], [place] [address]Dr. Airam Deuce Basophils/100 WBC (Bld) 0.3 % Normal 0.2-2.0 [facility] Comment on above: Performed By: #### C BC ####[facility] Smydoujaai29[address] [place], [place] [address]Dr. Selenaneil Deuce EO # 0.2 103/ul Normal 0.0-0.7 [facility] Comment on above: Performed By: #### C BC ####[facility] Wtrwjqzyyd[address] [place], [place] [address]Dr. Airam Tripathi Eosinophils/100 WBC (Bld) 2.5 % Normal 0.9-7.0 [facility] Comment on above: Performed By: #### C BC ####[facility] [address]eoyrkcqxo[address] [place], [place] [address]Dr. Airam Tripathi Erythrocyte distribution width (RBC) [Ratio] 12.9 % Normal 11.0-15.0 [facility] Comment on above: Performed By: #### C BC ####[facility] Scnrhowxeq22[address] [place], [place] [address]Dr. Airam Tripathi Hematocrit (Bld) [Volume fraction] 29.8 % Critically low 36.0-48.0 [facility] Comment on above: Performed By: #### C BC ####[facility] Dwmrabfadh[address] [place], [place] [address]Dr. Airam Tripathi Hemoglobin (Bld) [Mass/Vol] 9.7 g/dL Critically low 12.0-16.0 [facility] Comment on above: Performed By: #### C BC ####[facility] Xhphwqnacl4[address] [place], [place] [address]Dr. Airam Tripathi IG # 0.03 10e3/ul Normal 0.00-0.03 [facility] Comment on above: Performed By: #### C BC ####[facility] Hnjwlxrmmt[address] [place], [place] [address]Dr. Airam Tripathi IG % 0.3 % Normal 0.0-0.5 [facility] Comment on above: Performed By: #### C BC ####[facility] Sqodpchtng67[address] [place], [place] [address]Dr. Airam Tripathi LYMPH # 1.3 103/ul Normal 1.2-3.8 [facility] Comment on above: Performed By: #### C BC ####[facility] L[address]ptjfbnbe[address] [place], [place] [address]Dr. Airam Tripathi Lymphocytes/100 WBC (Bld) 14.6 % Critically low 20.5-60.0 [facility] Comment on above: Performed By: #### C BC ####[facility] Ksicgajpen74[address] [place], [place] [address]Dr. Airam Tripathi MANUAL DIFF REQ NO Normal [facility] Comment on above: Performed By: #### C BC ####[facility] Ctnzilywbu5218 [place] [address]DrKianna Tripathi MCH (RBC) [Entitic mass] 30.6 pg Normal 26.7-34.0 [facility] Comment on above: Performed By: #### C BC ####[facility] Erwevxsdry1196 [place] [address]DrKianna Tripathi MCHC (RBC) [Mass/Vol] 32.6 g/dL Normal 29.9-35.2 [facility] Comment on above: Performed By: #### C BC ####[facility] Isennnubps[address] [place], [place] [address]DrKianna Tripathi MCV (RBC) [Entitic vol] 94.0 fL Normal 81.0-99.0 [facility] Comment on above: Performed By: #### C BC ####[facility] Sacmtkvviy[address] [place], [place] [address]DrKianna Tripathi MONO # 0.5 103/ul Normal 0.3-0.8 [facility] Comment on above: Performed By: #### C BC ####[facility] Pfzskkmeki[address] [place], [place] [address]DrKianna Tripathi Monocytes/100 WBC (Bld) 5.7 % Normal 1.7-12.0 [facility] Comment on above: Performed By: #### C BC ####[facility] Rbmterhdur[address] [place], [place] [address]DrKianna Tripathi NEUT # 6.9 103/ul Critically high 1.4-6.5 [facility] Comment on above: Performed By: #### C BC ####[facility] Dqnfzoxmhk[address] [place], [place] [address]DrKianna Tripathi Neutrophils/100 WBC (Bld) 76.6 % Critically high 43.0-75.0 [facility] Comment on above: Performed By: #### C BC ####[facility] Pnthndvpwd2[address] [place], [place] [address]DriKanna Tripathi Platelet mean volume (Bld) [Entitic vol] 9.2 fL Critically low 9.5-13.5 [facility] Comment on above: Performed By: #### C BC ####[facility] Jauflcivzw9902 [place] [address]Dr. Airam Tripathi PLT 271 103/ul Normal 150-450 [facility] Comment on above: Performed By: #### C BC ####[facility] Zbirlyemhz6977 [place] [address]Dr. Airam Tripathi RBC 3.17 106/ul Critically low 4.20-5.40 [facility] Comment on above: Performed By: #### C BC ####[facility] Qvhjjlvgce[address] [place], [place] [address]DrKianna Tripathi WBC 9.1 103/ul Normal 4.0-11.0 [facility] Comment on above: Performed By: #### C BC ####[facility] L[address]thzswzzr[address] [place], [place] [address]DrKianna Tripathi PROF 14(COMP METB)on 022 Albumin [Mass/Vol] 3.4 g/dL Normal 3.4-5.0 [facility] Comment on above: Performed By: #### C MP ####[facility] Esiywkixht[address] [place] [address]DrKianna Tripathi Albumin/Globulin [Mass ratio] 1.0 {ratio} Normal [facility] Comment on above: Performed By: #### C MP ####[facility] Fkysqszlue3978 [place] [address]DrKianna Tripathi ALP [Catalytic activity/Vol] 156 U/L Critically high 46-116 [facility] Comment on above: Performed By: #### C MP ####[facility] Qsoxjayyfo6025 [place] [address]DrKianna Tripathi ALT [Catalytic activity/Vol] 18 U/L Normal 14-59 [facility] Comment on above: Performed By: #### C MP ####[facility] Oknogvyfja0634 [place] [address]DrKianna Tripathi Anion gap [Moles/Vol] 10.8 mmol/L Normal [facility] Comment on above: Performed By: #### C MP ####[facility] Qifmyvkqww5[address] [place], [place] [address]Dr. Airam Deuce AST [Catalytic activity/Vol] 27 U/L Normal 15-37 [facility] Comment on above: Performed By: #### C MP ####[facility] S[address]vtluwwfm04[address] [place], [place] [address]Dr. Airam Tripathi Bilirubin [Mass/Vol] 0.2 mg/dL Normal 0.2-1.0 [facility] Comment on above: Performed By: #### C MP ####[facility] Eehrgfhitw74[address] [place], [place] [address]Dr. Airam Tripathi Calcium [Mass/Vol] 8.1 mg/dL Critically low 8.5-10.1 [facility] Comment on above: Performed By: #### C MP ####[facility] Bvbrjdhvgf[address] [place], [place] [address]Dr. Airam Tripathi Chloride [Moles/Vol] 92 mmol/L Critically low 98-107 [facility] Comment on above: Performed By: #### C MP ####[facility] Tfejqvmmlz67[address] [place], [place] [address]Dr. Airam Tripathi CO2 [Moles/Vol] 27.4 mmol/L Normal 21.0-32.0 [facility] Comment on above: Performed By: #### C MP ####[facility] Jcwyslnbkd[address] [place], [place] [address]Dr. Airam Tripathi Creatinine [Mass/Vol] 1.57 mg/dL Critically high 0.55-1.02 [facility] Comment on above: Performed By: #### C MP ####[facility] [address]ztwkeffbk[address] [place], [place] [address]DrKianna Tripathi EGFR-AF CITIZEN OF [place] 41 mL/min/1.73m2 Critically low >=60 [facility] Comment on above: Performed By: #### C MP ####[facility] Qxxdwvvljs[address] [place], [place] [address]Dr. Airam Tripathi EGFR-NON AF CITIZEN OF [place] 34 mL/min/1.73m2 Critically low >=60 [facility] Comment on above: Performed By: #### C MP ####[facility] Dxdnynyvdz0484 [place] [address]Dr. Airam Tripathi Globulin (S) [Mass/Vol] 3.4 g/dL Normal [facility] Comment on above: Performed By: #### C MP ####[facility] Ongyfdvsqu0896 [place] [address]Dr. Airam Tripathi Glucose [Mass/Vol] 82 mg/dL Normal 74-106 [facility] Comment on above: Performed By: #### C MP ####[facility] Kbyqzfdxpv[address] [place], [place] [address]Dr. Airam Tripathi Potassium [Moles/Vol] 4.2 mmol/L Normal 3.5-5.1 [facility] Comment on above: Performed By: #### C MP ####[facility] Odtefwdcdm84[address] [place], [place] [address]Dr. Airam Tripathi Protein [Mass/Vol] 6.8 g/dL Normal 6.4-8.2 [facility] Comment on above: Performed By: #### C MP ####[facility] Epnietsirw468[address] [place], [place] [address]Dr. Airam Tripathi Sodium [Moles/Vol] 126 mmol/L Critically low 136-145 [facility] Comment on above: Performed By: #### C MP ####[facility] Xwbdzacdjz7[address] [place], [place] [address]Dr. Airam Tripathi Urea nitrogen [Mass/Vol] 35.0 mg/dL Critically high 7.0-18.0 [facility] Comment on above: Performed By: #### C MP ####[facility] Jwrzxfswoo2[address] [place], [place] [address]Dr. Airam Tripathi Urea nitrogen/Creatinine [Mass ratio] 22.3 mg/mg Normal [facility] Comment on above: Performed By: #### C MP ####[facility] [address]owdwyxhm[address] [place], [place] [address]Dr. Airam Tripathi OSMOLALITYon 06-02-2022 Osmolality [Osmolality] 276 mosm/kg Normal 275-295 [facility] Comment on above: Performed By: #### O SMO ####[facility] Ffrsadeixt[address] [place], [place] [address]Dr. Airam Tripathi CBC AUTO DIFFon 06-01-2022 BASO # 0.1 103/ul Normal 0.0-0.1 [facility] Comment on above: Performed By: #### C BC ####[facility] Dgltbfmhxl4[address] [place], [place] [address]Dr. Airam Deuce Basophils/100 WBC (Bld) 0.7 % Normal 0.2-2.0 [facility] Comment on above: Performed By: #### C BC ####[facility] Fhsqbaeeqn65[address] [place], [place] [address]Dr. Airam Tripathi EO # 0.3 103/ul Normal 0.0-0.7 [facility] Comment on above: Performed By: #### C BC ####[facility] Ogxjtfcmio[address] [place], [place] [address]Dr. Airam Tripathi Eosinophils/100 WBC (Bld) 3.3 % Normal 0.9-7.0 [facility] Comment on above: Performed By: #### C BC ####[facility] [address]nxekfpdjs[address] [place], [place] [address]Dr. Airam Tripathi Erythrocyte distribution width (RBC) [Ratio] 13.2 % Normal 11.0-15.0 [facility] Comment on above: Performed By: #### C BC ####[facility] Tiyhuvibut[address] [place], [place] [address]Dr. Airam Tripathi Hematocrit (Bld) [Volume fraction] 32.0 % Critically low 36.0-48.0 [facility] Comment on above: Performed By: #### C BC ####[facility] [address]iepbihq[address] [place] [address]Dr. Airam Tripathi Hemoglobin (Bld) [Mass/Vol] 10.3 g/dL Critically low 12.0-16.0 [facility] Comment on above: Performed By: #### C BC ####[facility] Vvcmalqspk74[address] [place] [id number]. Selenaneil Tripathi IG # 0.05 10e3/ul Critically high 0.00-0.03 [facility] Comment on above: Performed By: #### C BC ####[facility] Wlucfbubzt7225 [place] [address]Dr. Airam Tripathi IG % 0.7 % Critically high 0.0-0.5 [facility] Comment on above: Performed By: #### C BC ####[facility] Mfwjctcwdn2490 [place] [address]Dr. Airam Deuce LYMPH # 1.7 103/ul Normal 1.2-3.8 [facility] Comment on above: Performed By: #### C BC ####[facility] Oprhkvuzoj7402 [place] [address]Dr. Airam Tripathi Lymphocytes/100 WBC (Bld) 22.6 % Normal 20.5-60.0 [facility] Comment on above: Performed By: #### C BC ####[facility] Lsstouhowe6020 [place] [address]Dr. Selenaneil Tripathi MANUAL DIFF REQ NO Normal [facility] Comment on above: Performed By: #### C BC ####[facility] Hdzsolnfwm3554 [place] [address]Dr. Airam Tripathi MCH (RBC) [Entitic mass] 30.8 pg Normal 26.7-34.0 [facility] Comment on above: Performed By: #### C BC ####[facility] Fmafwcrvct5209 [place] [address]Dr. Airam Tripathi MCHC (RBC) [Mass/Vol] 32.2 g/dL Normal 29.9-35.2 [facility] Comment on above: Performed By: #### C BC ####[facility] Kuvmvdnsiq[address] [place], [place] [address]Dr. Airam Tripathi MCV (RBC) [Entitic vol] 95.8 fL Normal 81.0-99.0 [facility] Comment on above: Performed By: #### C BC ####[facility] Dckvuahtqa1588 [place] [address]Dr. Airam Tripathi MONO # 0.6 103/ul Normal 0.3-0.8 [facility] Comment on above: Performed By: #### C BC ####[facility] Dlnrgedned2337 [place] [address]Dr. Airam Tripathi Monocytes/100 WBC (Bld) 8.6 % Normal 1.7-12.0 [facility] Comment on above: Performed By: #### C BC ####[facility] Ambopdiyvc877[address] [place], [place] [address]Dr. Airam Tripathi NEUT # 4.8 103/ul Normal 1.4-6.5 [facility] Comment on above: Performed By: #### C BC ####[facility] Ucqgiaxddd19[address] [place], [place] [address]Dr. Airam Deuce Neutrophils/100 WBC (Bld) 64.1 % Normal 43.0-75.0 [facility] Comment on above: Performed By: #### C BC ####[facility] Vmzqgxseli[address] [place], [place] [address]Dr. Airam Tripathi Platelet mean volume (Bld) [Entitic vol] 10.0 fL Normal 9.5-13.5 [facility] Comment on above: Performed By: #### C BC ####[facility] Mvvqlxbyqs9070[address] [place], [place] [address]Dr. Airam Deuce PLT 322 103/ul Normal 150-450 [facility] Comment on above: Performed By: #### C BC ####[facility] Yctswaqycw8[address]24 [address] [place], [place] [address]Dr. Airam Deuce RBC 3.34 106/ul Critically low 4.20-5.40 [facility] Comment on above: Performed By: #### C BC ####[facility] Xrjepogsjc7[address] [place], [place] [id number]. Selenaneil Deuce WBC 7.5 103/ul Normal 4.0-11.0 [facility] Comment on above: Performed By: #### C BC ####[facility] Kzjdxbgzvv55[address] [place], [place] [address]Dr. Airam Tripathi PROF 14(COMP METB)on 022 Albumin [Mass/Vol] 3.5 g/dL Normal 3.4-5.0 [facility] Comment on above: Performed By: #### C MP ####[facility] Qrnsvpvrec6[address] [place], [place] [address]DrKianna Tripathi Albumin/Globulin [Mass ratio] 1.1 {ratio} Normal [facility] Comment on above: Performed By: #### C MP ####[facility] Wpddgovtfl0636[address] [place], [place] [address]DrKianna Tripathi ALP [Catalytic activity/Vol] 167 U/L Critically high 46-116 [facility] Comment on above: Performed By: #### C MP ####[facility] Ylikpixlvi752924 [address] [place], [place] [address]DrKianna Tripathi ALT [Catalytic activity/Vol] 24 U/L Normal 14-59 [facility] Comment on above: Performed By: #### C MP ####[facility] Volbzigqyy578724 [address] [place], [place] [address]Dr. Airam Tripathi Anion gap [Moles/Vol] 14.1 mmol/L Normal [facility] Comment on above: Performed By: #### C MP ####[facility] Kjlxaxmvev3537[address] [place], [place] [address]DrKianna Tripathi AST [Catalytic activity/Vol] 27 U/L Normal 15-37 [facility] Comment on above: Performed By: #### C MP ####[facility] Djvaivroku075[address] [place], [place] [address]DrKianna Tripathi Bilirubin [Mass/Vol] 0.3 mg/dL Normal 0.2-1.0 [facility] Comment on above: Performed By: #### C MP ####[facility] Vjnccxlfpm7598[address] [place], [place] [address]DrKianna Tripathi Calcium [Mass/Vol] 8.0 mg/dL Critically low 8.5-10.1 [facility] Comment on above: Performed By: #### C MP ####[facility] Bstjrjwiih8585[address] [place], [place] [address]Dr. Airam Tripathi Chloride [Moles/Vol] 96 mmol/L Critically low 98-107 [facility] Comment on above: Performed By: #### C MP ####[facility] Mahdnynzqa7965 [place] [address]Dr. Airam Deuce CO2 [Moles/Vol] 24.6 mmol/L Normal 21.0-32.0 [facility] Comment on above: Performed By: #### C MP ####[facility] Hxqsyaemjp036[address] [place], [place] [address]Dr. Airam Deuce Creatinine [Mass/Vol] 1.79 mg/dL Critically high 0.55-1.02 [facility] Comment on above: Performed By: #### C MP ####[facility] Zoklgpiqfd6444[address] [place], [place] [address]Dr. Airam Tripathi EGFR-AF CITIZEN OF [place] 35 mL/min/1.73m2 Critically low >=60 [facility] Comment on above: Performed By: #### C MP ####[facility] Ylhkabriwb6196[address] [place], [place] [address]Dr. Airam Deuce EGFR-NON AF CITIZEN OF [place] 29 mL/min/1.73m2 Critically low >=60 [facility] Comment on above: Performed By: #### C MP ####[facility] Hhwylbakss6434[address] [place], [place] [address]Dr. Airam Tripathi Globulin (S) [Mass/Vol] 3.3 g/dL Normal [facility] Comment on above: Performed By: #### C MP ####[facility] Pxxipykimb894324 [address] [place], [place] [address]Dr. Airam Tripathi Glucose [Mass/Vol] 58 mg/dL Critically low 74-106 [facility] Comment on above: Performed By: #### C MP ####[facility] Zpwqpnwqyf276924 [address] [place], [place] [address]Dr. Airam Tripathi Potassium [Moles/Vol] 4.7 mmol/L Normal 3.5-5.1 [facility] Comment on above: Performed By: #### C MP ####[facility] Paqwboxuqp904224 [address] [place], [place] [address]Dr. Airam Tripathi Protein [Mass/Vol] 6.8 g/dL Normal 6.4-8.2 [facility] Comment on above: Performed By: #### C MP ####[facility] Oedxarlvqb9335[address] [place], [place] [address]Dr. Airam Tripathi Sodium [Moles/Vol] 130 mmol/L Critically low 136-145 [facility] Comment on above: Performed By: #### C MP ####[facility] Swuiasyhtp4838[address] [place], [place] [address]Dr. Airam Deuce Urea nitrogen [Mass/Vol] 30.0 mg/dL Critically high 7.0-18.0 [facility] Comment on above: Performed By: #### C MP ####[facility] Hbvykuwumy478024 [address] [place], [place] [address]Dr. Selenaneil Tripathi Urea nitrogen/Creatinine [Mass ratio] 16.8 mg/mg Normal [facility] Comment on above: Performed By: #### C MP ####[facility] Elockfzmgw8926[address] [place], [place] [address]Dr. Airam Deuce OSMOLALITYon 05-28-2022 Osmolality [Osmolality] 275 mosm/kg Normal 275-295 [facility] Comment on above: Performed By: #### O SMO ####[facility] Kzkdrwvjgq1899[address] [place], [place] [address]Dr. Airam Deuce CBC AUTO DIFFon 05-26-2022 BASO # 0.0 103/ul Normal 0.0-0.1 [facility] Comment on above: Performed By: #### C BC ####[facility] Syduoowsmz9259[address] [place], [place] [address]Dr. Selenaneil Tripathi Basophils/100 WBC (Bld) 0.4 % Normal 0.2-2.0 [facility] Comment on above: Performed By: #### C BC ####[facility] Pjfpkiplka4594[address] [place], [place] [address]Dr. Airam Tripathi EO # 0.3 103/ul Normal 0.0-0.7 [facility] Comment on above: Performed By: #### C BC ####[facility] Kwkavhypgy4455 [place] [address]Dr. Airam Tripathi Eosinophils/100 WBC (Bld) 3.2 % Normal 0.9-7.0 [facility] Comment on above: Performed By: #### C BC ####[facility] Dwtrjovfop3836[address] [place], [place] [address]Dr. Airam Tripathi Erythrocyte distribution width (RBC) [Ratio] 13.0 % Normal 11.0-15.0 [facility] Comment on above: Performed By: #### C BC ####[facility] Tgbqkooeae496[address] [place], [place] [address]Dr. Airam Tripathi Hematocrit (Bld) [Volume fraction] 30.4 % Critically low 36.0-48.0 [facility] Comment on above: Performed By: #### C BC ####[facility] Nnuwmpfnco3042[address] [place], [place] [address]Dr. Airam Tripathi Hemoglobin (Bld) [Mass/Vol] 9.6 g/dL Critically low 12.0-16.0 [facility] Comment on above: Performed By: #### C BC ####[facility] Zxyhkukqov5547[address] [place], [place] [address]Dr. Airam Tripathi IG # 0.06 10e3/ul Critically high 0.00-0.03 [facility] Comment on above: Performed By: #### C BC ####[facility] Jcutblpflx0258[address] [place], [place] [address]Dr. Airam Tripathi IG % 0.7 % Critically high 0.0-0.5 [facility] Comment on above: Performed By: #### C BC ####[facility] Cgufumswwm3819[address] [place], [place] [address]Dr. Airam Tripathi LYMPH # 1.9 103/ul Normal 1.2-3.8 [facility] Comment on above: Performed By: #### C BC ####[facility] Cmwnnwddtc9284[address] [place], [place] [address]Dr. Airam Tripathi Lymphocytes/100 WBC (Bld) 20.6 % Normal 20.5-60.0 [facility] Comment on above: Performed By: #### C BC ####[facility] Oxhnaqbgxm0990 [place] [phone]. Airam Tripathi MANUAL DIFF REQ NO Normal [facility] Comment on above: Performed By: #### C BC ####[facility] Clcdfskcrt4873 [place] [phone]. Airam Tripathi MCH (RBC) [Entitic mass] 30.1 pg Normal 26.7-34.0 [facility] Comment on above: Performed By: #### C BC ####[facility] Ecghagonpd4580 [place] [address]Dr. Airam Tripathi MCHC (RBC) [Mass/Vol] 31.6 g/dL Normal 29.9-35.2 [facility] Comment on above: Performed By: #### C BC ####[facility] Yjovwjgomk3290 [place] [address]Dr. Airam Tripathi MCV (RBC) [Entitic vol] 95.3 fL Normal 81.0-99.0 [facility] Comment on above: Performed By: #### C BC ####[facility] Ylgjwmqqur00[address] [place], [place] [address]Dr. Airam Deuce MONO # 0.6 103/ul Normal 0.3-0.8 [facility] Comment on above: Performed By: #### C BC ####[facility] Rkbijfbmrm6764[address] [place], [place] [address]Dr. Aiarm Deuce Monocytes/100 WBC (Bld) 6.9 % Normal 1.7-12.0 [facility] Comment on above: Performed By: #### C BC ####[facility] Plxdakxcpq3494[address] [place], [place] [address]Dr. Airam Tripathi NEUT # 6.1 103/ul Normal 1.4-6.5 [facility] Comment on above: Performed By: #### C BC ####[facility] Nmhtwphidm147[address] [place], [place] [address]Dr. Airam Deuce Neutrophils/100 WBC (Bld) 68.2 % Normal 43.0-75.0 [facility] Comment on above: Performed By: #### C BC ####[facility] Klpkayhorq2853 [place] [phone]. Airam Tripathi Platelet mean volume (Bld) [Entitic vol] 9.7 fL Normal 9.5-13.5 [facility] Comment on above: Performed By: #### C BC ####[facility] Daklmadcnn6849 [place] [phone]. Airam Tripathi PLT 317 103/ul Normal 150-450 [facility] Comment on above: Performed By: #### C BC ####[facility] Mzsnnoqdnc4708 [place] [address]Dr. Airam Tripathi RBC 3.19 106/ul Critically low 4.20-5.40 [facility] Comment on above: Performed By: #### C BC ####[facility] Ytgwlysbjw0921 [place] [address]Dr. Airam Tripathi WBC 9.0 103/ul Normal 4.0-11.0 [facility] Comment on above: Performed By: #### C BC ####[facility] Lfaqamledi2701 [place] [address]Dr. Airam Tripathi PROF 14(COMP METB)on 022 Albumin [Mass/Vol] 3.4 g/dL Normal 3.4-5.0 [facility] Comment on above: Performed By: #### C MP ####[facility] Hokuagmfen2801 [place] [address]Dr. Airam Tripathi Albumin/Globulin [Mass ratio] 1.0 {ratio} Normal [facility] Comment on above: Performed By: #### C MP ####[facility] Vujvbiqhxa1643 [place] [address]Dr. Airam Tripathi ALP [Catalytic activity/Vol] 153 U/L Critically high 46-116 [facility] Comment on above: Performed By: #### C MP ####[facility] Uaefcsvfxv6383 [place] [address]Dr. Airam Tripathi ALT [Catalytic activity/Vol] 21 U/L Normal 14-59 [facility] Comment on above: Performed By: #### C MP ####[facility] Qcqnqqaivb1705 [place] [address]Dr. Airam Tripathi Anion gap [Moles/Vol] 13.6 mmol/L Normal [facility] Comment on above: Performed By: #### C MP ####[facility] Bqvgahpapl0846[address] [place], [place] [address]Dr. Airam Tripathi AST [Catalytic activity/Vol] 23 U/L Normal 15-37 [facility] Comment on above: Performed By: #### C MP ####[facility] Xyonuscxoi309224 [address] [place], [place] [address]Dr. Airam Tripathi Bilirubin [Mass/Vol] 0.2 mg/dL Normal 0.2-1.0 [facility] Comment on above: Performed By: #### C MP ####[facility] Whswqdncmy073524 [address] [place], [place] [address]Dr. Airam Tripathi Calcium [Mass/Vol] 8.4 mg/dL Critically low 8.5-10.1 [facility] Comment on above: Performed By: #### C MP ####[facility] Higrblxfcr826224 [address] [place], [place] [address]Dr. Airam Deuce Chloride [Moles/Vol] 97 mmol/L Critically low 98-107 [facility] Comment on above: Performed By: #### C MP ####[facility] Emsegdecho6475[address] [place], [place] [address]Dr. Airam Tripathi CO2 [Moles/Vol] 25.2 mmol/L Normal 21.0-32.0 [facility] Comment on above: Performed By: #### C MP ####[facility] Pavjvgfyny6367[address] [place], [place] [address]Dr. Airam Deuce Creatinine [Mass/Vol] 1.58 mg/dL Critically high 0.55-1.02 [facility] Comment on above: Performed By: #### C MP ####[facility] Knwuzfgbri6389[address] [place], [place] [address]Dr. Airam Deuce EGFR-AF CITIZEN [place] 40 mL/min/1.73m2 Critically low >=60 [facility] Comment on above: Performed By: #### C MP ####[facility] Hsskgcrxda8844 [place] [address]Dr. Airam Tripathi EGFR-NON AF CITIZEN OF [place] 33 mL/min/1.73m2 Critically low >=60 [facility] Comment on above: Performed By: #### C MP ####[facility] Czwehltucr0933 [place] [address]Dr. Airam Tripathi Globulin (S) [Mass/Vol] 3.4 g/dL Normal [facility] Comment on above: Performed By: #### C MP ####[facility] Nonfudqfcm2478 [place] [address]Dr. Airam Tripathi Glucose [Mass/Vol] 74 mg/dL Normal 74-106 [facility] Comment on above: Performed By: #### C MP ####[facility] Wswjrtgvpt5267[address] [place], [place] [address]Dr. Airam Tripathi Potassium [Moles/Vol] 4.8 mmol/L Normal 3.5-5.1 [facility] Comment on above: Performed By: #### C MP ####[facility] Lhjmasoyxq009[address] [place], [place] [address]Dr. Airam Tripathi Protein [Mass/Vol] 6.8 g/dL Normal 6.4-8.2 [facility] Comment on above: Performed By: #### C MP ####[facility] Sgqozszkfu3118[address] [place], [place] [address]Dr. Airam Tripathi Sodium [Moles/Vol] 131 mmol/L Critically low 136-145 [facility] Comment on above: Performed By: #### C MP ####[facility] Bkczswldxh9903 [place] [address]Dr. Airam Tripathi Urea nitrogen [Mass/Vol] 31.0 mg/dL Critically high 7.0-18.0 [facility] Comment on above: Performed By: #### C MP ####[facility] Jnvqsxpfsx0050[address] [place], [place] [address]Dr. Airam Tripathi Urea nitrogen/Creatinine [Mass ratio] 19.6 mg/mg Normal [facility] Comment on above: Performed By: #### C MP ####[facility] Xbpwrlytgm4[address] [place], [place] [address]Dr. Airam Tripathi OSMOLALITYon 05-19-2022 Osmolality [Osmolality] 281 mosm/kg Normal 275-295 [facility] Comment on above: Performed By: #### O SMO ####[facility] Qwxptfhkwt2194 [place] [address]Dr. Airam Tripathi CBC AUTO DIFFon 05-17-2022 BASO # 0.1 103/ul Normal 0.0-0.1 [facility] Comment on above: Performed By: #### C BC ####[facility] Kkuumwonxl4432 [place] [address]Dr. Airam Tripathi Basophils/100 WBC (Bld) 0.6 % Normal 0.2-2.0 [facility] Comment on above: Performed By: #### C BC ####[facility] Jyrjawculg7218[address] [place], [place] [address]Dr. Airam Tripathi EO # 0.2 103/ul Normal 0.0-0.7 [facility] Comment on above: Performed By: #### C BC ####[facility] Ormywdylaj250[address] [place], [place] [address]Dr. Airam Tripathi Eosinophils/100 WBC (Bld) 1.9 % Normal 0.9-7.0 [facility] Comment on above: Performed By: #### C BC ####[facility] Zbzxpgzftb6462[address] [place], [place] [address]Dr. Airam Tripathi Erythrocyte distribution width (RBC) [Ratio] 12.9 % Normal 11.0-15.0 [facility] Comment on above: Performed By: #### C BC ####[facility] Iqcjpbwcbb0278[address] [place], [place] [address]Dr. Airam Tripathi Hematocrit (Bld) [Volume fraction] 32.1 % Critically low 36.0-48.0 [facility] Comment on above: Performed By: #### C BC ####[facility] Jyikxxtxzf9186[address] [place], [place] [address]Dr. Airam Tripathi Hemoglobin (Bld) [Mass/Vol] 9.9 g/dL Critically low 12.0-16.0 [facility] Comment on above: Performed By: #### C BC ####[facility] Nxdvrfhggj7351 [place] [phone]. Airam Tripathi IG # 0.05 10e3/ul Critically high 0.00-0.03 [facility] Comment on above: Performed By: #### C BC ####[facility] Ewuhdedwoj1388 [place] [phone]. Airam Tripathi IG % 0.6 % Critically high 0.0-0.5 [facility] Comment on above: Performed By: #### C BC ####[facility] Readnekesc940[address] [place], [place] [address]Dr. Airam Tripathi LYMPH # 1.3 103/ul Normal 1.2-3.8 [facility] Comment on above: Performed By: #### C BC ####[facility] Anfxkoydie8847[address] [place], [place] [address]Dr. Airam Tripathi Lymphocytes/100 WBC (Bld) 15.2 % Critically low 20.5-60.0 [facility] Comment on above: Performed By: #### C BC ####[facility] Clgqymuiqb9716[address] [place], [place] [address]Dr. Airam Tripathi MANUAL DIFF REQ NO Normal [facility] Comment on above: Performed By: #### C BC ####[facility] Ispgvjpwpw5539[address] [place], [place] [address]Dr. Airam Tripathi MCH (RBC) [Entitic mass] 30.0 pg Normal 26.7-34.0 [facility] Comment on above: Performed By: #### C BC ####[facility] Jvxdljendw1448[address] [place], [place] [address]Dr. Airam Tripathi MCHC (RBC) [Mass/Vol] 30.8 g/dL Normal 29.9-35.2 [facility] Comment on above: Performed By: #### C BC ####[facility] Edoaxqiobn4334[address] [place], [place] [address]Dr. Airam Tripathi MCV (RBC) [Entitic vol] 97.3 fL Normal 81.0-99.0 [facility] Comment on above: Performed By: #### C BC ####[facility] Npvzspshwv1909 [place] [phone]. Airam Tripathi MONO # 0.5 103/ul Normal 0.3-0.8 [facility] Comment on above: Performed By: #### C BC ####[facility] Xshrnoommr6305 [place] [phone]. Airam Tripathi Monocytes/100 WBC (Bld) 5.4 % Normal 1.7-12.0 [facility] Comment on above: Performed By: #### C BC ####[facility] Ocdnewidpa9868 [place] [phone]. Airam Tripathi NEUT # 6.5 103/ul Normal 1.4-6.5 [facility] Comment on above: Performed By: #### C BC ####[facility] Mseqjlizmy6532[address] [place], [place] [address]Dr. Airam Tripathi Neutrophils/100 WBC (Bld) 76.3 % Critically high 43.0-75.0 [facility] Comment on above: Performed By: #### C BC ####[facility] Mbwqzzcxuw0640 [place] [address]Dr. Airam Tripathi Platelet mean volume (Bld) [Entitic vol] 10.1 fL Normal 9.5-13.5 [facility] Comment on above: Performed By: #### C BC ####[facility] Kaousndpos2317 [place] [phone]. Airam Tripathi PLT 284 103/ul Normal 150-450 [facility] Comment on above: Performed By: #### C BC ####[facility] Qajtuhofvf[address] [place], [place] [address]Dr. Airam Tripathi RBC 3.30 106/ul Critically low 4.20-5.40 [facility] Comment on above: Performed By: #### C BC ####[facility] Kbkpfzjdky6584 [place] [address]Dr. Airam Tripathi WBC 8.5 103/ul Normal 4.0-11.0 [facility] Comment on above: Performed By: #### C BC ####[facility] Wwevdhgmyg3286[address] [place], [place] [address]Dr. Airam Tripathi PROF 14(COMP METB)on 022 Albumin [Mass/Vol] 3.1 g/dL Critically low 3.4-5.0 [facility] Comment on above: Performed By: #### C MP ####[facility] Xxilxketpq78[address] [place], [place] [address]Dr. Airam Tripathi Albumin/Globulin [Mass ratio] 0.9 {ratio} Normal [facility] Comment on above: Performed By: #### C MP ####[facility] Mxnvomwvof[address] [place], [place] [address]Dr. Airam Tripathi ALP [Catalytic activity/Vol] 162 U/L Critically high 46-116 [facility] Comment on above: Performed By: #### C MP ####[facility] [address]vntewnvax[address] [place], [place] [address]Dr. Airam Tripathi ALT [Catalytic activity/Vol] 22 U/L Normal 14-59 [facility] Comment on above: Performed By: #### C MP ####[facility] Nudolpiafj[address] [place], [place] [address]Dr. Airam Tripathi Anion gap [Moles/Vol] 9.4 mmol/L Normal [facility] Comment on above: Performed By: #### C MP ####[facility] Ixqaqhctvw[address] [place], [place] [address]Dr. Airam Tripathi AST [Catalytic activity/Vol] 26 U/L Normal 15-37 [facility] Comment on above: Performed By: #### C MP ####[facility] Abtjmthoxk[address] [place], [place] [address]Dr. Airam Tripathi Bilirubin [Mass/Vol] 0.2 mg/dL Normal 0.2-1.0 [facility] Comment on above: Performed By: #### C MP ####[facility] Aghwtqvlnz06[address] [place], [place] [address]Dr. Airam Tripathi Calcium [Mass/Vol] 8.2 mg/dL Critically low 8.5-10.1 [facility] Comment on above: Performed By: #### C MP ####[facility] [address]pvsdet[address] [place] [phone]. Airam Tripathi Chloride [Moles/Vol] 103 mmol/L Normal 98-107 [facility] Comment on above: Performed By: #### C MP ####[facility] Mvoaecwccd0353 [place] [phone]. Airam Tripathi CO2 [Moles/Vol] 24.8 mmol/L Normal 21.0-32.0 [facility] Comment on above: Performed By: #### C MP ####[facility] Uchkiyrgmy04[address] [place] [phone]. Airam Tripathi Creatinine [Mass/Vol] 1.19 mg/dL Critically high 0.55-1.02 [facility] Comment on above: Performed By: #### C MP ####[facility] Orerhkydgd27[address] [place] [address]Dr. Airam Tripathi EGFR-AF CITIZEN OF [place] 56 mL/min/1.73m2 Critically low >=60 [facility] Comment on above: Performed By: #### C MP ####[facility] Cgczmqswrr16[address] [place] [address]Dr. Airam Tripathi EGFR-NON AF CITIZEN OF [place] 46 mL/min/1.73m2 Critically low >=60 [facility] Comment on above: Performed By: #### C MP ####[facility] Vohcwxevjz7594 [place] [address]Dr. Airam Tripathi Globulin (S) [Mass/Vol] 3.6 g/dL Normal [facility] Comment on above: Performed By: #### C MP ####[facility] Zqnhbmlawl4909 [place] [address]Dr. Airam Tripathi Glucose [Mass/Vol] 75 mg/dL Normal 74-106 [facility] Comment on above: Performed By: #### C MP ####[facility] Qvgokapoza0126 [place] [address]Dr. Airam Tripathi Potassium [Moles/Vol] 5.2 mmol/L Critically high 3.5-5.1 [facility] Comment on above: Performed By: #### C MP ####[facility] Gmttxcvvtd1471 [place] [phone]. Airam Tripathi Protein [Mass/Vol] 6.7 g/dL Normal 6.4-8.2 [facility] Comment on above: Performed By: #### C MP ####[facility] Bnhzjokkrh0185 [place] [phone]. Airam Tripathi Sodium [Moles/Vol] 132 mmol/L Critically low 136-145 Th [facility] Comment on above: Performed By: #### C MP ####[facility] Vixakdvqgu7[address] [place], [place] [address]Dr. Airam Tripathi Urea nitrogen [Mass/Vol] 28.0 mg/dL Critically high 7.0-18.0 [facility] Comment on above: Performed By: #### C MP ####[facility] Uflwujennq3[address] [place], [place] [address]Dr. Airam Tripathi Urea nitrogen/Creatinine [Mass ratio] 23.5 mg/mg Normal [facility] Comment on above: Performed By: #### C MP ####[facility] Mzkblfgvdz[address] [place], [place] [address]Dr. Airam Tripathi OSMOLALITYon 05-16-2022 Osmolality [Osmolality] 281 mosm/kg Normal 275-295 [facility] Comment on above: Performed By: #### O SMO ####[facility] Lipmefnoow[address] [place], [place] [address]Dr. Airam Tripathi CBC AUTO DIFFon 05-13-2022 BASO # 0.1 103/ul Normal 0.0-0.1 [facility] Comment on above: Performed By: #### C BC ####[facility] Juopahvlow[address] [place], [place] [address]Dr. Airam Deuce Basophils/100 WBC (Bld) 0.5 % Normal 0.2-2.0 [facility] Comment on above: Performed By: #### C BC ####[facility] Nydjoztnij95[address] [place], [place] [address]Dr. Airam Deuce EO # 0.2 103/ul Normal 0.0-0.7 [facility] Comment on above: Performed By: #### C BC ####[facility] Ekpjyybxaw1568 [place] [phone]. Airam Tripathi Eosinophils/100 WBC (Bld) 2.1 % Normal 0.9-7.0 [facility] Comment on above: Performed By: #### C BC ####[facility] Wfbndjextf7762 [place] [address]Dr. Airam Tripathi Erythrocyte distribution width (RBC) [Ratio] 12.9 % Normal 11.0-15.0 [facility] Comment on above: Performed By: #### C BC ####[facility] Zwgxnohypn[address] [place], [place] [address]Dr. Airam Tripathi Hematocrit (Bld) [Volume fraction] 31.9 % Critically low 36.0-48.0 [facility] Comment on above: Performed By: #### C BC ####[facility] Jrhiqimwjh097[address] [place], [place] [address]Dr. Airam Tripathi Hemoglobin (Bld) [Mass/Vol] 9.7 g/dL Critically low 12.0-16.0 [facility] Comment on above: Performed By: #### C BC ####[facility] Rfymshpxdp78[address] [place], [place] [address]Dr. Airam Tripathi IG # 0.06 10e3/ul Critically high 0.00-0.03 [facility] Comment on above: Performed By: #### C BC ####[facility] Hmfymfcnza24[address] [place], [place] [address]Dr. Airam Tripathi IG % 0.7 % Critically high 0.0-0.5 [facility] Comment on above: Performed By: #### C BC ####[facility] Qethlymfkt[address] [place], [place] [address]Dr. Airam Tripathi LYMPH # 1.9 103/ul Normal 1.2-3.8 [facility] Comment on above: Performed By: #### C BC ####[facility] Scsolukgwy6277[address] [place], [place] [address]Dr. Airam Tripathi Lymphocytes/100 WBC (Bld) 21.1 % Normal 20.5-60.0 [facility] Comment on above: Performed By: #### C BC ####[facility] Djonqmupul4221 [place] [phone]. Airam Deuce MANUAL DIFF REQ NO Normal [facility] Comment on above: Performed By: #### C BC ####[facility] Slvynzmtda9866 [place] [phone]. Airam Deuce MCH (RBC) [Entitic mass] 29.7 pg Normal 26.7-34.0 [facility] Comment on above: Performed By: #### C BC ####[facility] Wcxfwzcsin0855 [place] [phone]. Airam Deuce MCHC (RBC) [Mass/Vol] 30.4 g/dL Normal 29.9-35.2 [facility] Comment on above: Performed By: #### C BC ####[facility] Evbcvzibhd8026[address] [place], [place] [address]Dr. Airam Tripathi MCV (RBC) [Entitic vol] 97.6 fL Normal 81.0-99.0 [facility] Comment on above: Performed By: #### C BC ####[facility] Kelkeedmtt9035[address] [place], [place] [address]Dr. Airam Deuce MONO # 0.6 103/ul Normal 0.3-0.8 [facility] Comment on above: Performed By: #### C BC ####[facility] Nvhglfzjmd85[address] [place], [place] [address]Dr. Airam Tripathi Monocytes/100 WBC (Bld) 6.8 % Normal 1.7-12.0 [facility] Comment on above: Performed By: #### C BC ####[facility] Djmyatwbeo36[address] [place], [place] [address]Dr. Airam Tripathi NEUT # 6.3 103/ul Normal 1.4-6.5 [facility] Comment on above: Performed By: #### C BC ####[facility] Zqlvfhhhix[address] [place], [place] [id number]. Airam Tripathi Neutrophils/100 WBC (Bld) 68.8 % Normal 43.0-75.0 [facility] Comment on above: Performed By: #### C BC ####[facility] Uqojzvrvpe9240 [place] [address]Dr. Airam Tripathi Platelet mean volume (Bld) [Entitic vol] 9.6 fL Normal 9.5-13.5 [facility] Comment on above: Performed By: #### C BC ####[facility] Wzbjsemzrq2537 [place] [address]Dr. Airam Tripathi PLT 295 103/ul Normal 150-450 [facility] Comment on above: Performed By: #### C BC ####[facility] Knithikrgz6759 [place] [address]Dr. Airam Tripathi RBC 3.27 106/ul Critically low 4.20-5.40 [facility] Comment on above: Performed By: #### C BC ####[facility] Amipckxdfd5218[address] [place], [place] [address]Dr. Airam Tripathi WBC 9.1 103/ul Normal 4.0-11.0 [facility] Comment on above: Performed By: #### C BC ####[facility] Ecgakebhha6662[address] [place], [place] [address]Dr. Airam Tripathi PROF 14(COMP METB)on 022 Albumin [Mass/Vol] 3.3 g/dL Critically low 3.4-5.0 Th [facility] Comment on above: Performed By: #### C MP ####[facility] Aehkrtcwyw11[address] [place], [place] [address]Dr. Airam Tripathi Albumin/Globulin [Mass ratio] 1.0 {ratio} Normal [facility] Comment on above: Performed By: #### C MP ####[facility] Snbjmzljtl[address]25[address] [place], [place] [address]Dr. Airam Tripathi ALP [Catalytic activity/Vol] 152 U/L Critically high 46-116 [facility] Comment on above: Performed By: #### C MP ####[facility] Hjtpgykjbw09[address] [place], [place] [address]Dr. Airam Tripathi ALT [Catalytic activity/Vol] 23 U/L Normal 14-59 [facility] Comment on above: Performed By: #### C MP ####[facility] Zftqmckkhs4499 [place] [phone]. Airam Tripathi Anion gap [Moles/Vol] 12.0 mmol/L Normal [facility] Comment on above: Performed By: #### C MP ####[facility] Qsxseinjtr7450 [place] [phone]. Airam Tripathi AST [Catalytic activity/Vol] 25 U/L Normal 15-37 [facility] Comment on above: Performed By: #### C MP ####[facility] Wdjyksrwtd1696 [place] [phone]. Airam Tripathi Bilirubin [Mass/Vol] 0.2 mg/dL Normal 0.2-1.0 [facility] Comment on above: Performed By: #### C MP ####[facility] Ktjunwoizn5[address] [place], [place] [address]Dr. Airam Tripathi Calcium [Mass/Vol] 8.2 mg/dL Critically low 8.5-10.1 [facility] Comment on above: Performed By: #### C MP ####[facility] Mdjlnyefxs70[address] [place], [place] [address]Dr. Airam Tripathi Chloride [Moles/Vol] 100 mmol/L Normal 98-107 [facility] Comment on above: Performed By: #### C MP ####[facility] Bxvqogrwvo9[address] [place], [place] [address]Dr. Airam Tripathi CO2 [Moles/Vol] 24.8 mmol/L Normal 21.0-32.0 [facility] Comment on above: Performed By: #### C MP ####[facility] Xemclvyjye[address] [place], [place] [address]Dr. Airam Tripathi Creatinine [Mass/Vol] 1.46 mg/dL Critically high 0.55-1.02 [facility] Comment on above: Performed By: #### C MP ####[facility] Patjvbcvnf[address] [place], [place] [id number]. Airam Tripathi EGFR-AF CITIZEN OF [place] 44 mL/min/1.73m2 Critically low >=60 [facility] Comment on above: Performed By: #### C MP ####[facility] Ltrffmgowo1384 [place] [phone]. Airam Tripathi EGFR-NON AF CITIZEN OF [place] 37 mL/min/1.73m2 Critically low >=60 [facility] Comment on above: Performed By: #### C MP ####[facility] Wgnjorbbve8192 [place] [phone]. Airam Tripathi Globulin (S) [Mass/Vol] 3.3 g/dL Normal [facility] Comment on above: Performed By: #### C MP ####[facility] Rmufotpzms5624 [place] [phone]. Airam Tripathi Glucose [Mass/Vol] 86 mg/dL Normal 74-106 [facility] Comment on above: Performed By: #### C MP ####[facility] Imjtikstuc0670 [place] [address]Dr. Airam Tripathi Potassium [Moles/Vol] 4.8 mmol/L Normal 3.5-5.1 [facility] Comment on above: Performed By: #### C MP ####[facility] Qmalhtsxwa3751 [place] [address]Dr. Airam Tripathi Protein [Mass/Vol] 6.6 g/dL Normal 6.4-8.2 [facility] Comment on above: Performed By: #### C MP ####[facility] Rgmupjokma8624 [place] [address]Dr. Airam Tripathi Sodium [Moles/Vol] 132 mmol/L Critically low 136-145 [facility] Comment on above: Performed By: #### C MP ####[facility] Dqfmjcandy0775 [place] [phone]. Airam Tripathi Urea nitrogen [Mass/Vol] 34.0 mg/dL Critically high 7.0-18.0 [facility] Comment on above: Performed By: #### C MP ####[facility] Jusxouaygr3915 [place] [phone]. Airam Tripathi Urea nitrogen/Creatinine [Mass ratio] 23.3 mg/mg Normal [facility] Comment on above: Performed By: #### C MP ####[facility] Dxscgvloya9984 [place] [address]Dr. Airam Tripathi OSMOLALITYon 05-06-2022 Osmolality [Osmolality] 284 mosm/kg Normal 275-295 [facility] Comment on above: Performed By: #### O SMO ####[facility] Xcpotxuihz6887 [place] [address]Dr. Selenaneil Deuce XR LSPINE MIN 4 VIEWSon XR LSPINE MIN 4 VIEWS Normal [facility] CBC AUTO DIFFon 05-03-2022 BASO # 0.1 103/ul Normal 0.0-0.1 [facility] Comment on above: Performed By: #### C BC ####[facility] Periwsvxgu4[address] [place], [place] [address]Dr. Airam Tripathi Basophils/100 WBC (Bld) 0.6 % Normal 0.2-2.0 [facility] Comment on above: Performed By: #### C BC ####[facility] Kfthdpuvik08[address] [place], [place] [address]Dr. Airam Tripathi EO # 0.3 103/ul Normal 0.0-0.7 [facility] Comment on above: Performed By: #### C BC ####[facility] Sxncfqgppk32[address] [place], [place] [address]DrKianna Tripathi Eosinophils/100 WBC (Bld) 4.2 % Normal 0.9-7.0 [facility] Comment on above: Performed By: #### C BC ####[facility] Imkiolixjm143[address] [place], [place] [address]DrKianna Tripathi Erythrocyte distribution width (RBC) [Ratio] 13.4 % Normal 11.0-15.0 [facility] Comment on above: Performed By: #### C BC ####[facility] Huerwfcyag30[address] [place], [place] [address]DrKianna Tripathi Hematocrit (Bld) [Volume fraction] 30.7 % Critically low 36.0-48.0 [facility] Comment on above: Performed By: #### C BC ####[facility] Eunbfgbfql701[address] [place], [place] [address]Dr. Airam Tripathi Hemoglobin (Bld) [Mass/Vol] 9.6 g/dL Critically low 12.0-16.0 [facility] Comment on above: Performed By: #### C BC ####[facility] Xxhemubqwt1865 [place] [address]Dr. Airam Tripathi IG # 0.05 10e3/ul Critically high 0.00-0.03 [facility] Comment on above: Performed By: #### C BC ####[facility] Awtzltjqms2637[address] [place], [place] [address]Dr. Airam Tripathi IG % 0.6 % Critically high 0.0-0.5 [facility] Comment on above: Performed By: #### C BC ####[facility] Vmytlwxjce6536[address] [place], [place] [address]Dr. Airam Tripathi LYMPH # 1.9 103/ul Normal 1.2-3.8 [facility] Comment on above: Performed By: #### C BC ####[facility] Diqksqnlbf358[address] [place], [place] [address]Dr. Airam Tripathi Lymphocytes/100 WBC (Bld) 23.5 % Normal 20.5-60.0 [facility] Comment on above: Performed By: #### C BC ####[facility] Nckolhwtfu7966[address] [place], [place] [address]Dr. Airam Tripathi MANUAL DIFF REQ NO Normal [facility] Comment on above: Performed By: #### C BC ####[facility] Blkrospioa847[address] [place], [place] [address]Dr. Airam Tripathi MCH (RBC) [Entitic mass] 30.8 pg Normal 26.7-34.0 [facility] Comment on above: Performed By: #### C BC ####[facility] Duwxkicmns969[address] [place], [place] [address]Dr. Airam Tripathi MCHC (RBC) [Mass/Vol] 31.3 g/dL Normal 29.9-35.2 [facility] Comment on above: Performed By: #### C BC ####[facility] Uiiqnscgop4840[address] [place], [place] [address]Dr. Airam Tripathi MCV (RBC) [Entitic vol] 98.4 fL Normal 81.0-99.0 [facility] Comment on above: Performed By: #### C BC ####[facility] Xnifjcsffq3575[address] [place], [place] [address]DrKianna Airam Tripathi MONO # 0.6 103/ul Normal 0.3-0.8 [facility] Comment on above: Performed By: #### C BC ####[facility] Byjyrzbevp2701[address] [place], [place] [address]DrKianna Airam Deuce Monocytes/100 WBC (Bld) 7.4 % Normal 1.7-12.0 [facility] Comment on above: Performed By: #### C BC ####[facility] Ssteitsduc3226[address] [place], [place] [address]DrKianna Airam Tripathi NEUT # 5.0 103/ul Normal 1.4-6.5 [facility] Comment on above: Performed By: #### C BC ####[facility] Dbrlhoplen0717[address] [place], [place] [address]DrKianna Airam Deuce Neutrophils/100 WBC (Bld) 63.7 % Normal 43.0-75.0 [facility] Comment on above: Performed By: #### C BC ####[facility] Dahmmvymsr1397[address] [place], [place] [address]DrKianna Airam Deuce Platelet mean volume (Bld) [Entitic vol] 9.5 fL Normal 9.5-13.5 [facility] Comment on above: Performed By: #### C BC ####[facility] Kndeqzqfjs444[address] [place], [place] [address]DrKianna Waltersneil Deuce PLT 280 103/ul Normal 150-450 [facility] Comment on above: Performed By: #### C BC ####[facility] Xazzqzhukb9840[address] [place], [place] [address]DrKianna Tripathi RBC 3.12 106/ul Critically low 4.20-5.40 [facility] Comment on above: Performed By: #### C BC ####[facility] Pyxzlydcke2766[address] [place], [place] [address]DrKianna Tripathi WBC 7.9 103/ul Normal 4.0-11.0 [facility] Comment on above: Performed By: #### C BC ####[facility] Lafxogkkko434[address] [place], [place] [address]Dr. Airam Tripathi PROF 14(COMP METB)on 022 Albumin [Mass/Vol] 3.1 g/dL Critically low 3.4-5.0 [facility] Comment on above: Performed By: #### C MP ####[facility] Vvfmtgfosf4876[address] [place], [place] [address]Dr. Airam Tripathi Albumin/Globulin [Mass ratio] 0.9 {ratio} Normal [facility] Comment on above: Performed By: #### C MP ####[facility] Xbnizjawyy5375[address] [place], [place] [address]Dr. Airam Tripathi ALP [Catalytic activity/Vol] 140 U/L Critically high 46-116 [facility] Comment on above: Performed By: #### C MP ####[facility] Pyiqtolasl69112[address] [place], [place] [address]Dr. Airam Tripathi ALT [Catalytic activity/Vol] 24 U/L Normal 14-59 [facility] Comment on above: Performed By: #### C MP ####[facility] Oxnwkbkfgx3072[address] [place], [place] [address]Dr. Airam Tripathi Anion gap [Moles/Vol] 11.2 mmol/L Normal [facility] Comment on above: Performed By: #### C MP ####[facility] Ferijnitne7005[address] [place], [place] [address]Dr. Airam Tripathi AST [Catalytic activity/Vol] 26 U/L Normal 15-37 [facility] Comment on above: Performed By: #### C MP ####[facility] Yfkqmqteyi1286[address] [place], [place] [address]Dr. Airam Tripathi Bilirubin [Mass/Vol] 0.2 mg/dL Normal 0.2-1.0 [facility] Comment on above: Performed By: #### C MP ####[facility] Rwamsxxuly6317[address] [place], [place] [address]Dr. Airam Tripathi Calcium [Mass/Vol] 8.3 mg/dL Critically low 8.5-10.1 Th e [facility] Comment on above: Performed By: #### C MP ####[facility] Nfiuprtbsd7229[address] [place], [place] [address]Dr. Selenaneil Tripathi Chloride [Moles/Vol] 101 mmol/L Normal 98-107 [facility] Comment on above: Performed By: #### C MP ####[facility] Setapgwhky074[address] [place], [place] [address]Dr. Selenaneil Deuce CO2 [Moles/Vol] 25.5 mmol/L Normal 21.0-32.0 [facility] Comment on above: Performed By: #### C MP ####[facility] Socdroyfvt747[address] [place], [place] [address]Dr. Airam Tripathi Creatinine [Mass/Vol] 1.43 mg/dL Critically high 0.55-1.02 [facility] Comment on above: Performed By: #### C MP ####[facility] Dsvicreabk4769[address] [place], [place] [address]Dr. Selenaneil Deuce EGFR-AF CITIZEN OF [place] 45 mL/min/1.73m2 Critically low >=60 [facility] Comment on above: Performed By: #### C MP ####[facility] Hyauhozmkd293[address] [place], [place] [address]Dr. Selenaneil Deuce EGFR-NON AF CITIZEN OF [place] 37 mL/min/1.73m2 Critically low >=60 [facility] Comment on above: Performed By: #### C MP ####[facility] Uyhjxolrkd6056[address] [place], [place] [address]Dr. Airam Tripathi Globulin (S) [Mass/Vol] 3.3 g/dL Normal [facility] Comment on above: Performed By: #### C MP ####[facility] Vrggcjeqvj896[address] [place], [place] [address]Dr. Airam Tripathi Glucose [Mass/Vol] 74 mg/dL Normal 74-106 [facility] Comment on above: Performed By: #### C MP ####[facility] Xyphokojhj6454[address] [place], [place] [address]Dr. Airam Tripathi Potassium [Moles/Vol] 4.7 mmol/L Normal 3.5-5.1 [facility] Comment on above: Performed By: #### C MP ####[facility] Hpxygifkja7429[address] [place], [place] [address]Dr. Airam Deuce Protein [Mass/Vol] 6.4 g/dL Normal 6.4-8.2 [facility] Comment on above: Performed By: #### C MP ####[facility] Smnmyutdkq1402[address] [place], [place] [address]Dr. Airam Tripathi Sodium [Moles/Vol] 133 mmol/L Critically low 136-145 [facility] Comment on above: Performed By: #### C MP ####[facility] Yotmbvhewk2627[address] [place], [place] [address]Dr. Airam Tripathi Urea nitrogen [Mass/Vol] 38.0 mg/dL Critically high 7.0-18.0 [facility] Comment on above: Performed By: #### C MP ####[facility] Ynnpeslmeb311[address] [place], [place] [address]Dr. Airam Tripathi Urea nitrogen/Creatinine [Mass ratio] 26.6 mg/mg Normal [facility] Comment on above: Performed By: #### C MP ####[facility] Iucdakwspo[address] [place], [place] [address]DrKianna Airam Deuce OSMOLALITYon 04-29-2022 Osmolality [Osmolality] 292 mosm/kg Normal 275-295 [facility] Comment on above: Performed By: #### O SMO ####[facility] Eiffhgdlqe9[address] [place], [place] [address]DrKianna Airam Deuce CBC AUTO DIFFon 04-28-2022 BASO # 0.0 103/ul Normal 0.0-0.1 [facility] Comment on above: Performed By: #### C BC ####[facility] Uzmazkhqet[address] [place], [place] [address]DrKianna Selenaneil Tripathi Basophils/100 WBC (Bld) 0.5 % Normal 0.2-2.0 [facility] Comment on above: Performed By: #### C BC ####[facility] Rxdcnullem9226[address] [place], [place] [address]Dr. Airam Tripathi EO # 0.2 103/ul Normal 0.0-0.7 [facility] Comment on above: Performed By: #### C BC ####[facility] Cjsxucrpoa70[address] [place] [address]Dr. Airam Tripathi Eosinophils/100 WBC (Bld) 3.4 % Normal 0.9-7.0 [facility] Comment on above: Performed By: #### C BC ####[facility] Isdwgiufle8334[address] [place], [place] [address]Dr. Airam Tripathi Erythrocyte distribution width (RBC) [Ratio] 13.4 % Normal 11.0-15.0 [facility] Comment on above: Performed By: #### C BC ####[facility] Bccxesgteo034[address] [place], [place] [address]Dr. Airam Tripathi Hematocrit (Bld) [Volume fraction] 31.6 % Critically low 36.0-48.0 [facility] Comment on above: Performed By: #### C BC ####[facility] Gbvnrhpsmu2156[address] [place], [place] [address]Dr. Airam Tripathi Hemoglobin (Bld) [Mass/Vol] 9.8 g/dL Critically low 12.0-16.0 [facility] Comment on above: Performed By: #### C BC ####[facility] Gjetdvfkmc107[address] [place], [place] [address]Dr. Airam Tripathi IG # 0.02 10e3/ul Normal 0.00-0.03 [facility] Comment on above: Performed By: #### C BC ####[facility] Kdbhhgjdpu9364[address] [place], [place] [address]Dr. Airam Tripathi IG % 0.3 % Normal 0.0-0.5 [facility] Comment on above: Performed By: #### C BC ####[facility] Kklvuqtodj3478[address] [place], [place] [address]Dr. Airam Tripathi LYMPH # 1.3 103/ul Normal 1.2-3.8 [facility] Comment on above: Performed By: #### C BC ####[facility] Iolvideszv9393 [place] [address]Dr. Airam Tripathi Lymphocytes/100 WBC (Bld) 21.7 % Normal 20.5-60.0 [facility] Comment on above: Performed By: #### C BC ####[facility] Vyrukwqren8083 [place] [address]Dr. Airam Tripathi MANUAL DIFF REQ NO Normal [facility] Comment on above: Performed By: #### C BC ####[facility] Hlbrnornbd2716 [place] [address]Dr. Airam Tripathi MCH (RBC) [Entitic mass] 30.7 pg Normal 26.7-34.0 [facility] Comment on above: Performed By: #### C BC ####[facility] Bvgjygcnos9235[address] [place], [place] [address]Dr. Airam Tripathi MCHC (RBC) [Mass/Vol] 31.0 g/dL Normal 29.9-35.2 [facility] Comment on above: Performed By: #### C BC ####[facility] Qgduzjjlav0325[address] [place], [place] [address]Dr. Airam Tripathi MCV (RBC) [Entitic vol] 99.1 fL Critically high 81.0-99.0 [facility] Comment on above: Performed By: #### C BC ####[facility] Icdgjwiytf544[address] [place], [place] [address]Dr. Airam Tripathi MONO # 0.3 103/ul Normal 0.3-0.8 [facility] Comment on above: Performed By: #### C BC ####[facility] Islqkefyhs557924 [address] [place], [place] [address]Dr. Airam Tripathi Monocytes/100 WBC (Bld) 5.2 % Normal 1.7-12.0 [facility] Comment on above: Performed By: #### C BC ####[facility] Dcnfaivorq153424 [address] [place], [place] [address]Dr. Airam Tripathi NEUT # 4.1 103/ul Normal 1.4-6.5 [facility] Comment on above: Performed By: #### C BC ####[facility] Xrcxjguxzl637[address] [place], [place] [address]Dr. Airam Tripathi Neutrophils/100 WBC (Bld) 68.9 % Normal 43.0-75.0 [facility] Comment on above: Performed By: #### C BC ####[facility] Ssstexqxzz2523 [place] [address]Dr. Airam Tripathi Platelet mean volume (Bld) [Entitic vol] 9.8 fL Normal 9.5-13.5 [facility] Comment on above: Performed By: #### C BC ####[facility] Fsiepynhdw0184 [place] [address]Dr. Airam Deuce PLT 329 103/ul Normal 150-450 [facility] Comment on above: Performed By: #### C BC ####[facility] Bjqmdraaxp0026 [place] [address]Dr. Selenaneil Deuce RBC 3.19 106/ul Critically low 4.20-5.40 [facility] Comment on above: Performed By: #### C BC ####[facility] Ojbrupagqy0751 [place] [address]Dr. Airam Deuce WBC 5.9 103/ul Normal 4.0-11.0 [facility] Comment on above: Performed By: #### C BC ####[facility] Stgdtecofr9265 [place] [address]Dr. Selenaneil Tripathi PROF 14(COMP METB)on 022 Albumin [Mass/Vol] 2.9 g/dL Critically low 3.4-5.0 [facility] Comment on above: Performed By: #### C MP ####[facility] Qyjvcnzeum3670 [place] [address]Dr. Airam Tripathi Albumin/Globulin [Mass ratio] 0.9 {ratio} Normal [facility] Comment on above: Performed By: #### C MP ####[facility] Umbptgvnss3383 [place] [address]Dr. Airam Deuce ALP [Catalytic activity/Vol] 127 U/L Critically high 46-116 [facility] Comment on above: Performed By: #### C MP ####[facility] Mpfrzlljog4179 [place] [address]Dr. Airam Tripathi ALT [Catalytic activity/Vol] 22 U/L Normal 14-59 [facility] Comment on above: Performed By: #### C MP ####[facility] Qxtoasobcr3924 [place] [address]Dr. Airam Tripathi Anion gap [Moles/Vol] 6.7 mmol/L Normal [facility] Comment on above: Performed By: #### C MP ####[facility] Reupjvnbnj8069[address] [place], [place] [address]Dr. Airam Tripathi AST [Catalytic activity/Vol] 24 U/L Normal 15-37 [facility] Comment on above: Performed By: #### C MP ####[facility] Rguepodazz0358[address] [place], [place] [address]Dr. Airam Deuce Bilirubin [Mass/Vol] 0.2 mg/dL Normal 0.2-1.0 [facility] Comment on above: Performed By: #### C MP ####[facility] Vfemntnxvg0685[address] [place], [place] [address]Dr. Airam Deuce Calcium [Mass/Vol] 8.2 mg/dL Critically low 8.5-10.1 [facility] Comment on above: Performed By: #### C MP ####[facility] Cptvqyouwx593324 [address] [place], [place] [address]Dr. Airam Deuce Chloride [Moles/Vol] 105 mmol/L Normal 98-107 [facility] Comment on above: Performed By: #### C MP ####[facility] Fmbyhzwuvj054224 [address] [place], [place] [address]Dr. Airam Deuce CO2 [Moles/Vol] 28.2 mmol/L Normal 21.0-32.0 [facility] Comment on above: Performed By: #### C MP ####[facility] Whijrfyudp309[address] [place], [place] [address]Dr. Airam Deuce Creatinine [Mass/Vol] 1.22 mg/dL Critically high 0.55-1.02 [facility] Comment on above: Performed By: #### C MP ####[facility] Bwjtqiceat906[address] [place], [place] [address]Dr. Airam Deuce EGFR-AF CITIZEN OF [place] 54 mL/min/1.73m2 Critically low >=60 [facility] Comment on above: Performed By: #### C MP ####[facility] Fhpoavtkst1511 [place] [address]Dr. Airam Deuce EGFR-NON AF CITIZEN OF [place] 45 mL/min/1.73m2 Critically low >=60 [facility] Comment on above: Performed By: #### C MP ####[facility] Vcaqrokxqt6751 [place] [address]Dr. Airam Deuce Globulin (S) [Mass/Vol] 3.2 g/dL Normal [facility] Comment on above: Performed By: #### C MP ####[facility] Jtzlfgiycz037[address] [place], [place] [address]Dr. Airam Tripathi Glucose [Mass/Vol] 77 mg/dL Normal 74-106 [facility] Comment on above: Performed By: #### C MP ####[facility] Vlaehcsvbi9040[address] [place], [place] [address]Dr. Selenaneil Tripathi Potassium [Moles/Vol] 4.9 mmol/L Normal 3.5-5.1 [facility] Comment on above: Performed By: #### C MP ####[facility] Jwjtxepbli950[address] [place], [place] [address]Dr. Airam Tripathi Protein [Mass/Vol] 6.1 g/dL Critically low 6.4-8.2 [facility] Comment on above: Performed By: #### C MP ####[facility] Svthsalaba736924 [address] [place], [place] [address]Dr. Airam Tripathi Sodium [Moles/Vol] 135 mmol/L Critically low 136-145 [facility] Comment on above: Performed By: #### C MP ####[facility] Aaecqkvect4325[address] [place], [place] [address]Dr. Airam Tripathi Urea nitrogen [Mass/Vol] 30.0 mg/dL Critically high 7.0-18.0 [facility] Comment on above: Performed By: #### C MP ####[facility] Ovipzyhrod7175[address] [place], [place] [address]Dr. Airam Tripathi Urea nitrogen/Creatinine [Mass ratio] 24.6 mg/mg Normal [facility] Comment on above: Performed By: #### C MP ####[facility] Uagbfbrilm9559 [place] [address]Dr. Airam Tripathi OSMOLALITYon 04-23-2022 Osmolality [Osmolality] 289 mosm/kg Normal 275-295 [facility] Comment on above: Performed By: #### O SMO ####[facility] Xijbhmpjsn8425[address] [place], [place] [address]Dr. Airam Tripathi CBC AUTO DIFFon 04-20-2022 BASO # 0.0 103/ul Normal 0.0-0.1 [facility] Comment on above: Performed By: #### C BC ####[facility] Htuniaecbh4610 [place] [address]Dr. Airam Deuce Basophils/100 WBC (Bld) 0.4 % Normal 0.2-2.0 [facility] Comment on above: Performed By: #### C BC ####[facility] Yuhoejgnzt939[address] [place], [place] [address]Dr. Airam Tripathi EO # 0.2 103/ul Normal 0.0-0.7 [facility] Comment on above: Performed By: #### C BC ####[facility] Pzmvipjyrv9822[address] [place], [place] [address]Dr. Airam Tripathi Eosinophils/100 WBC (Bld) 3.1 % Normal 0.9-7.0 [facility] Comment on above: Performed By: #### C BC ####[facility] Iwjuuxvfnp4870[address] [place], [place] [address]Dr. Airam Tripathi Erythrocyte distribution width (RBC) [Ratio] 13.8 % Normal 11.0-15.0 [facility] Comment on above: Performed By: #### C BC ####[facility] Nqoeryhmht[address] [place], [place] [address]Dr. Airam Tripathi Hematocrit (Bld) [Volume fraction] 29.5 % Critically low 36.0-48.0 [facility] Comment on above: Performed By: #### C BC ####[facility] Bmwaeresoe3645 [place] [phone]. Airam Tripathi Hemoglobin (Bld) [Mass/Vol] 9.2 g/dL Critically low 12.0-16.0 [facility] Comment on above: Performed By: #### C BC ####[facility] Zvovfeqyvz9151 [place] [address]Dr. Airam Tripathi IG # 0.02 10e3/ul Normal 0.00-0.03 [facility] Comment on above: Performed By: #### C BC ####[facility] Nkakbbmxrw8204 [place] [address]Dr. Airam Tripathi IG % 0.4 % Normal 0.0-0.5 [facility] Comment on above: Performed By: #### C BC ####[facility] Najzmoxyiv6742 [place] [address]Dr. Airam Tripathi LYMPH # 0.8 103/ul Critically low 1.2-3.8 [facility] Comment on above: Performed By: #### C BC ####[facility] Whtsytknsf06[address] [place], [place] [address]Dr. Airam Tripathi Lymphocytes/100 WBC (Bld) 14.0 % Critically low 20.5-60.0 [facility] Comment on above: Performed By: #### C BC ####[facility] Finmdisuci6729 [place] [address]Dr. Airam Tripathi MANUAL DIFF REQ NO Normal [facility] Comment on above: Performed By: #### C BC ####[facility] Vsqzoukmnp4969[address] [place], [place] [address]Dr. Airam Tripathi MCH (RBC) [Entitic mass] 30.4 pg Normal 26.7-34.0 [facility] Comment on above: Performed By: #### C BC ####[facility] Fnjssrlwtn8192[address] [place], [place] [address]Dr. Airam Tripathi MCHC (RBC) [Mass/Vol] 31.2 g/dL Normal 29.9-35.2 [facility] Comment on above: Performed By: #### C BC ####[facility] Eocjkqrxvc1384 [place] [phone]. Airam Tripathi MCV (RBC) [Entitic vol] 97.4 fL Normal 81.0-99.0 [facility] Comment on above: Performed By: #### C BC ####[facility] Qxtucfqqth7500 [place] [phone]. Airam Tripathi MONO # 0.3 103/ul Normal 0.3-0.8 [facility] Comment on above: Performed By: #### C BC ####[facility] Zrtuglsorv0376 [place] [phone]. Airam Tripathi Monocytes/100 WBC (Bld) 5.6 % Normal 1.7-12.0 [facility] Comment on above: Performed By: #### C BC ####[facility] Flglqzcsjv8848 [place] [address]Dr. Airam Tripathi NEUT # 4.2 103/ul Normal 1.4-6.5 [facility] Comment on above: Performed By: #### C BC ####[facility] Txdcyhfehy5942 [place] [address]Dr. Airam Tripathi Neutrophils/100 WBC (Bld) 76.5 % Critically high 43.0-75.0 [facility] Comment on above: Performed By: #### C BC ####[facility] Knpisymozz1271 [place] [phone]. Airam Tripathi Platelet mean volume (Bld) [Entitic vol] 9.4 fL Critically low 9.5-13.5 [facility] Comment on above: Performed By: #### C BC ####[facility] Lrrcpyslzp1688 [place] [phone]. Airam Tripathi PLT 250 103/ul Normal 150-450 [facility] Comment on above: Performed By: #### C BC ####[facility] Elfhwrucfn1539 [place] [phone]. Airam Tripathi RBC 3.03 106/ul Critically low 4.20-5.40 [facility] Comment on above: Performed By: #### C BC ####[facility] Hqdyeqkjgo3174 [place] [address]Dr. Airam Tripathi WBC 5.5 103/ul Normal 4.0-11.0 [facility] Comment on above: Performed By: #### C BC ####[facility] Ibilgfumtf6772[address] [place], [place] [address]Dr. Airam Tripathi PROF 14(COMP METB)on 022 Albumin [Mass/Vol] 2.7 g/dL Critically low 3.4-5.0 [facility] Comment on above: Performed By: #### C MP ####[facility] Lvckqanbqd950124 [address] [place], [place] [address]Dr. Airam Tripathi Albumin/Globulin [Mass ratio] 0.9 {ratio} Normal [facility] Comment on above: Performed By: #### C MP ####[facility] Ujokxygezb437[address] [place], [place] [address]Dr. Airam Tripathi ALP [Catalytic activity/Vol] 113 U/L Normal 46-116 [facility] Comment on above: Performed By: #### C MP ####[facility] Ckmakadhfr9062[address] [place], [place] [address]Dr. Airam Tripathi ALT [Catalytic activity/Vol] 20 U/L Normal 14-59 [facility] Comment on above: Performed By: #### C MP ####[facility] Ymlfjojgye856524 [address] [place], [place] [address]Dr. Airam Tripathi Anion gap [Moles/Vol] 11.1 mmol/L Normal [facility] Comment on above: Performed By: #### C MP ####[facility] Znnacsohqj543224 [address] [place], [place] [address]Dr. Airam Tripathi AST [Catalytic activity/Vol] 19 U/L Normal 15-37 [facility] Comment on above: Performed By: #### C MP ####[facility] Evgpmqddjt796724 [address] [place], [place] [address]Dr. Airam Tripathi Bilirubin [Mass/Vol] 0.2 mg/dL Normal 0.2-1.0 [facility] Comment on above: Performed By: #### C MP ####[facility] Tkavmhykci8774 [place] [address]Dr. Airam Tripathi Calcium [Mass/Vol] 8.3 mg/dL Critically low 8.5-10.1 Th e [facility] Comment on above: Performed By: #### C MP ####[facility] Hiklgpwesi7933 [place] [address]Dr. Airam Tripathi Chloride [Moles/Vol] 104 mmol/L Normal 98-107 [facility] Comment on above: Performed By: #### C MP ####[facility] Pvzjryjdga7289[address] [place], [place] [address]Dr. Airam Tripathi CO2 [Moles/Vol] 25.3 mmol/L Normal 21.0-32.0 [facility] Comment on above: Performed By: #### C MP ####[facility] Chqstygpyr5016[address] [place], [place] [address]Dr. Airam Tripathi Creatinine [Mass/Vol] 1.33 mg/dL Critically high 0.55-1.02 [facility] Comment on above: Performed By: #### C MP ####[facility] Mfhfwukuou6[address] [place], [place] [address]Dr. Airam Tripathi EGFR-AF [place]IZ[place] 49 mL/min/1.73m2 Critically low >=60 [facility] Comment on above: Performed By: #### C MP ####[facility] Nzsqcelpwi4350[address] [place], [place] [address]Dr. Airam Tripathi EGFR-NON AF CITIZEN OF [place] 41 mL/min/1.73m2 Critically low >=60 [facility] Comment on above: Performed By: #### C MP ####[facility] Vgjvrgjdfi32[address] [place], [place] [address]Dr. Airam Tripathi Globulin (S) [Mass/Vol] 3.1 g/dL Normal [facility] Comment on above: Performed By: #### C MP ####[facility] Bhgvmybjga0474[address] [place], [place] [address]Dr. Airam Deuce Glucose [Mass/Vol] 88 mg/dL Normal 74-106 [facility] Comment on above: Performed By: #### C MP ####[facility] Jcguyokdnb8755[address] [place], [place] [address]Dr. Airam Tripathi Potassium [Moles/Vol] 5.4 mmol/L Critically high 3.5-5.1 [facility] Comment on above: Performed By: #### C MP ####[facility] Tynwffrwtq7636 [place] [address]Dr. Airam Triptahi Protein [Mass/Vol] 5.8 g/dL Critically low 6.4-8.2 [facility] Comment on above: Performed By: #### C MP ####[facility] Fgekvcphiq0352 [place] [address]Dr. Airam Tripathi Sodium [Moles/Vol] 135 mmol/L Critically low 136-145 [facility] Comment on above: Performed By: #### C MP ####[facility] Zqzmrpqbxp4566 [place] [address]Dr. Airam Tripathi Urea nitrogen [Mass/Vol] 38.0 mg/dL Critically high 7.0-18.0 [facility] Comment on above: Performed By: #### C MP ####[facility] Elyvfipqdf6359[address] [place], [place] [address]Dr. Airam Tripathi Urea nitrogen/Creatinine [Mass ratio] 28.6 mg/mg Normal [facility] Comment on above: Performed By: #### C MP ####[facility] Ucgmctvkug9164 [place] [address]Dr. Airam Tripathi OSMOLALITYon 04-15-2022 Osmolality [Osmolality] 284 mosm/kg Normal 275-295 [facility] Comment on above: Performed By: #### O SMO ####[facility] Yxizdgasyy0191 [place] [address]Dr. Airam Tripathi CBC AUTO DIFFon 04-14-2022 BASO # 0.0 103/ul Normal 0.0-0.1 [facility] Comment on above: Performed By: #### C BC ####[facility] Giijquozcj8099 [place] [address]Dr. Airam Tripathi Basophils/100 WBC (Bld) 0.5 % Normal 0.2-2.0 [facility] Comment on above: Performed By: #### C BC ####[facility] Woakadxmzs0089 [place] [phone]. Airam Tripathi EO # 0.3 103/ul Normal 0.0-0.7 [facility] Comment on above: Performed By: #### C BC ####[facility] Tlyklpyeph8359 [place] [phone]. Airam Tripathi Eosinophils/100 WBC (Bld) 3.6 % Normal 0.9-7.0 [facility] Comment on above: Performed By: #### C BC ####[facility] Ykfrpsftdz8[address] [place], [place] [address]Dr. Airam Tripathi Erythrocyte distribution width (RBC) [Ratio] 13.4 % Normal 11.0-15.0 [facility] Comment on above: Performed By: #### C BC ####[facility] Fhberogvjy22[address] [place], [place] [address]Dr. Airam Tripathi Hematocrit (Bld) [Volume fraction] 30.6 % Critically low 36.0-48.0 [facility] Comment on above: Performed By: #### C BC ####[facility] Elxtixzftj3866[address] [place], [place] [address]Dr. Airam Tripathi Hemoglobin (Bld) [Mass/Vol] 9.7 g/dL Critically low 12.0-16.0 [facility] Comment on above: Performed By: #### C BC ####[facility] Lipbnfgqjv9769[address] [place], [place] [address]Dr. Airam Tripathi IG # 0.08 10e3/ul Critically high 0.00-0.03 [facility] Comment on above: Performed By: #### C BC ####[facility] Bubkmuokna8401[address] [place], [place] [address]Dr. Airam Tripathi IG % 0.9 % Critically high 0.0-0.5 [facility] Comment on above: Performed By: #### C BC ####[facility] Qeevgjzizz564[address] [place], [place] [address]Dr. Airam Tripathi LYMPH # 2.1 103/ul Normal 1.2-3.8 [facility] Comment on above: Performed By: #### C BC ####[facility] Ufijgbvnov7923 [place] [phone]. Airam Tripathi Lymphocytes/100 WBC (Bld) 24.2 % Normal 20.5-60.0 [facility] Comment on above: Performed By: #### C BC ####[facility] Phrsftgkza0844 [place] [phone]. Airam Tripathi MANUAL DIFF REQ NO Normal [facility] Comment on above: Performed By: #### C BC ####[facility] Iqwnqtzlxj96[address] [place], [place] [id number]. Airam Deuce MCH (RBC) [Entitic mass] 30.4 pg Normal 26.7-34.0 [facility] Comment on above: Performed By: #### C BC ####[facility] Kwohchgivw50[address] [place], [place] [address]Dr. Airam Deuce MCHC (RBC) [Mass/Vol] 31.7 g/dL Normal 29.9-35.2 [facility] Comment on above: Performed By: #### C BC ####[facility] Vqracaaohc0301 [place] [phone]. Airam Tripathi MCV (RBC) [Entitic vol] 95.9 fL Normal 81.0-99.0 [facility] Comment on above: Performed By: #### C BC ####[facility] Hhughxppxz7[address] [place], [place] [address]Dr. Selenaneil Deuce MONO # 0.5 103/ul Normal 0.3-0.8 [facility] Comment on above: Performed By: #### C BC ####[facility] Ewsrblfazr[address] [place], [place] [id number]. Airam Deuce Monocytes/100 WBC (Bld) 6.0 % Normal 1.7-12.0 [facility] Comment on above: Performed By: #### C BC ####[facility] L[address]lspzhey8[address] [place], [place] [id number]. Airam Tripathi NEUT # 5.6 103/ul Normal 1.4-6.5 [facility] Comment on above: Performed By: #### C BC ####[facility] Ctqmbtmizk3790 [place] [phone]. Airam Tripathi Neutrophils/100 WBC (Bld) 64.8 % Normal 43.0-75.0 [facility] Comment on above: Performed By: #### C BC ####[facility] Vampcunccf2825 [place] [phone]. Airam Tripathi Platelet mean volume (Bld) [Entitic vol] 9.2 fL Critically low 9.5-13.5 [facility] Comment on above: Performed By: #### C BC ####[facility] Pzzvnfqedi9810 [place] [address]Dr. Airam Tripathi PLT 296 103/ul Normal 150-450 [facility] Comment on above: Performed By: #### C BC ####[facility] Typsmsqste8860 [place] [address]Dr. Airam Tripathi RBC 3.19 106/ul Critically low 4.20-5.40 [facility] Comment on above: Performed By: #### C BC ####[facility] Nsdustsouu2283 [place] [address]Dr. Airam Tripathi WBC 8.6 103/ul Normal 4.0-11.0 [facility] Comment on above: Performed By: #### C BC ####[facility] Wvoocytign0916 [place] [address]Dr. Airam Tripathi PROF 14(COMP METB)on 022 Albumin [Mass/Vol] 3.2 g/dL Critically low 3.4-5.0 [facility] Comment on above: Performed By: #### C MP ####[facility] Kgzkdrvicp[address] [place] [address]Dr. Airam Tripathi Albumin/Globulin [Mass ratio] 1.0 {ratio} Normal [facility] Comment on above: Performed By: #### C MP ####[facility] Loruiwvtcu6466 [place] [address]Dr. Airam Tripathi ALP [Catalytic activity/Vol] 126 U/L Critically high 46-116 [facility] Comment on above: Performed By: #### C MP ####[facility] Vtibextqzm6995 [place] [phone]. Airam Tripathi ALT [Catalytic activity/Vol] 27 U/L Normal 14-59 [facility] Comment on above: Performed By: #### C MP ####[facility] Ibmcxrwvpe8541 [place] [phone]. Airam Tripathi Anion gap [Moles/Vol] 9.6 mmol/L Normal [facility] Comment on above: Performed By: #### C MP ####[facility] Fzxvblileh8234 [place] [phone]. Airam Tripathi AST [Catalytic activity/Vol] 25 U/L Normal 15-37 [facility] Comment on above: Performed By: #### C MP ####[facility] Gqrypgahtq[address] [place], [place] [address]Dr. Airam Tripathi Bilirubin [Mass/Vol] 0.3 mg/dL Normal 0.2-1.0 [facility] Comment on above: Performed By: #### C MP ####[facility] Xrwxyaaqyh[address] [place], [place] [id number]. Airam Tripathi Calcium [Mass/Vol] 8.1 mg/dL Critically low 8.5-10.1 [facility] Comment on above: Performed By: #### C MP ####[facility] Ndqbyvlmci[address] [place], [place] [id number]. Airam Tripathi Chloride [Moles/Vol] 100 mmol/L Normal 98-107 [facility] Comment on above: Performed By: #### C MP ####[facility] Opgrbcyeyx5617 [place] [phone]. Airam Tripathi CO2 [Moles/Vol] 26.5 mmol/L Normal 21.0-32.0 [facility] Comment on above: Performed By: #### C MP ####[facility] Srwgopshuv[address] [place], [place] [address]Dr. Airam Tripathi Creatinine [Mass/Vol] 1.52 mg/dL Critically high 0.55-1.02 [facility] Comment on above: Performed By: #### C MP ####[facility] Igrlclcrpj5181 [place] [phone]. Airam Tripathi EGFR-AF CITIZEN OF [place] 42 mL/min/1.73m2 Critically low >=60 [facility] Comment on above: Performed By: #### C MP ####[facility] Hqbwqmczep5941 [place] [phone]. Airam Tripathi EGFR-NON AF CITIZEN OF [place] 35 mL/min/1.73m2 Critically low >=60 [facility] Comment on above: Performed By: #### C MP ####[facility] Fdaenauqbf4839 [place] [phone]. Airam Tripathi Globulin (S) [Mass/Vol] 3.3 g/dL Normal [facility] Comment on above: Performed By: #### C MP ####[facility] Lcwsyxhhoe4478 [place] [phone]. Airam Tripathi Glucose [Mass/Vol] 75 mg/dL Normal 74-106 [facility] Comment on above: Performed By: #### C MP ####[facility] Zfdgcdgabh2573 [place] [phone]. Airam Tripathi Potassium [Moles/Vol] 4.1 mmol/L Normal 3.5-5.1 [facility] Comment on above: Performed By: #### C MP ####[facility] Guncklqdhc4323 [place] [phone]. Airam Tripathi Protein [Mass/Vol] 6.5 g/dL Normal 6.4-8.2 [facility] Comment on above: Performed By: #### C MP ####[facility] Nwzyfjripi4477 [place] [phone]. Airam Tripathi Sodium [Moles/Vol] 132 mmol/L Critically low 136-145 [facility] Comment on above: Performed By: #### C MP ####[facility] Fvcdyiqast3465 [place] [phone]. Airam Tripathi Urea nitrogen [Mass/Vol] 40.0 mg/dL Critically high 7.0-18.0 [facility] Comment on above: Performed By: #### C MP ####[facility] Pqcueytbdr7380 [place] [address]Dr. Airam Tripathi Urea nitrogen/Creatinine [Mass ratio] 26.3 mg/mg Normal [facility] Comment on above: Performed By: #### C MP ####[facility] Xiidvkeevr2766 [place] [address]Dr. Airam Tripathi OSMOLALITYon 04-10-2022 Osmolality [Osmolality] 280 mosm/kg Normal 275-295 [facility] Comment on above: Performed By: #### O SMO ####[facility] Tqrsihwowb[address] [place], [place] [address]Dr. Airam Tripathi PTH INTACTon 04-09-2022 PTH, Intact 89 pg/mL Critically high 15-65 [facility] Comment on above: Performed By: #### P THINT ####[facility] Csuddmnkwa[address] [place], [place] [address]Dr. Airam Tripathi CBC W MANUAL DIFFon 04-08-20 22 ATYPICAL LYMPH # Normal [facility] Comment on above: Performed By: #### C BCMAN ####[facility] Awaopprzxd5924[address] [place], [place] [address]Dr. Airam Tripathi ATYPICAL LYMPH % Normal [facility] Comment on above: Performed By: #### C BCMAN ####[facility] Jfseozfnac[address] [place], [place] [address]Dr. Airam Tripathi BAND # Normal 0.0-0.3 [facility] Comment on above: Performed By: #### C BCMAN ####[facility] Ikbfxwmntj535[address] [place], [place] [address]Dr. Selenalan Tripathi BAND % Normal 0-5 [facility] Comment on above: Performed By: #### C BCMAN ####[facility] Jmkwldmlau96[address] [place], [place] [address]Dr. Selenaneil Deuce BASOM # 0.00 103/ul Normal 0.00-0.10 [facility] Comment on above: Performed By: #### C BCMAN ####[facility] Yisjwukhum94[address] [place], [place] [address]Dr. Selenaneil Deuce BASOM % 0.0 % Critically low 0.2-2.0 [facility] Comment on above: Performed By: #### C CHRISTEN ####[facility] Sjcisdkjig22[address] [place] [address]Dr. Airam Tripathi BLAST # Normal [facility] Comment on above: Performed By: #### C CHRISTEN ####[facility] Tkbnttduvn1435 [place] [phone]. Airam Tripathi BLAST % Normal [facility] Comment on above: Performed By: #### C CHRISTEN ####[facility] Tjaraasmrk4176 [place] [address]Dr. Airam Tripathi CORRECTED WBC Normal 4.0-11.0 [facility] Comment on above: Performed By: #### C CHRISTEN ####[facility] Dyahorouax9621 [place] [address]Dr. Airam Tripathi EOS # 0.00 103/ul Normal 0.00-0.70 [facility] Comment on above: Performed By: #### C CHRISTEN ####[facility] Vwagecxwhz9[address] [place], [place] [address]Dr. Airam Tripathi EOS% 0.0 % Critically low 0.9-7.0 [facility] Comment on above: Performed By: #### C CHRISTEN ####[facility] Baruruhkoi[address] [place], [place] [address]Dr. Airam Tripathi HCT 29.7 % Critically low 36.0-48.0 [facility] Comment on above: Performed By: #### C CHRISTEN ####[facility] Jngrewezej8333 [place] [address]Dr. Airam Tripathi HGB 9.5 g/dl Critically low 12.0-16.0 [facility] Comment on above: Performed By: #### C CHRISTEN ####[facility] Wcgaghfvgp[address] [place], [place] [address]Dr. Airam Tripathi LYMPHM # 0.42 103/ul Critically low 1.20-3.80 [facility] Comment on above: Performed By: #### C CHRISTEN ####[facility] Auweevwhyp[address] [place], [place] [address]Dr. Airam Tripathi LYMPHM% 7.0 % Critically low 20.5-60.0 [facility] Comment on above: Performed By: #### C CHRISTEN ####[facility] Hsntrccbxk8356 [place] [phone]. Airam Tripathi MCH 30.9 pg Normal 26.7-34.0 [facility] Comment on above: Performed By: #### C CHRISTEN ####[facility] Tzvafjpygt6870 [place] [phone]. Airam Tripathi MCHC 32.0 g/dl Normal 29.9-35.2 [facility] Comment on above: Performed By: #### C CHRISTEN ####[facility] Lwbjpkrqsj9947 [place] [address]Dr. Airam Tripathi MCV 96.7 fL Normal 81.0-99.0 [facility] Comment on above: Performed By: #### C CHRISTEN ####[facility] Cffbaebbfg[address] [place], [place] [address]Dr. Airam Tripathi METAMYELOCYTE # Normal [facility] Comment on above: Performed By: #### C CHRISTEN ####[facility] Kbgwgkzqbn9672 [place] [address]Dr. Airam Tripathi METAMYELOCYTE % Normal [facility] Comment on above: Performed By: #### C CHRISTEN ####[facility] Mxbjszagxk4558 [place] [address]Dr. Airam Tripathi MONOM# 0.36 103/ul Normal 0.30-0.80 [facility] Comment on above: Performed By: #### C CHRISTEN ####[facility] Dfuqsouxfg3791 [place] [address]Dr. Airam Tripathi MONOM% 6.0 % Normal 1.7-12.0 [facility] Comment on above: Performed By: #### C CHRISTEN ####[facility] Zxgjqhhmti5810 [place] [address]Dr. Airam Tripathi MPV 9.5 fL Normal 9.5-13.5 [facility] Comment on above: Performed By: #### C CHRISTEN ####[facility] Ksztmrhfxq4147 [place], [place] [address]Dq. Airam Tripathi MYELOCYTE # Normal [facility] Comment on above: Performed By: #### C CHRISTEN ####[facility] Lazugvopnh7098 [place], [place] [address]Ug. Airam Tripathi MYELOCYTE % Normal [facility] Comment on above: Performed By: #### C CHRISTEN ####[facility] Aqssuwyzej6094 [place] [phone]. Airam Tripathi NRBC Normal [facility] Comment on above: Performed By: #### C CHRISTEN ####[facility] Puhzgjnaem5619 [place] [phone]. Airam Tripathi PLT 185 103/ul Normal 150-450 [facility] Comment on above: Performed By: #### C CHRISTEN ####[facility] Pzgkxnpcgz8635 [place] [phone]. Airam Tripathi RBC 3.07 106/ul Critically low 4.20-5.40 [facility] Comment on above: Performed By: #### C CHRISTEN ####[facility] Fmtcaxunvj0139 [place] [phone]. Airam Tripathi RDW 13.6 % Normal 11.0-15.0 [facility] Comment on above: Performed By: #### C CHRISTEN ####[facility] Oscskwbtrl8953 [place] [phone]. Airam Tripathi SEG # 5.22 103/ul Normal 1.40-6.50 [facility] Comment on above: Performed By: #### C CHRISTEN ####[facility] Bdptfrjmxj4039 [place] [phone]. Airam Tripathi SEG % 87.0 % Critically high 43.0-75.0 [facility] Comment on above: Performed By: #### C CHRISTEN ####[facility] Rzmonkjdkk3837 [place] [phone]. Airam Tripathi WBC 6.0 103/ul Normal 4.0-11.0 [facility] Comment on above: Performed By: #### C [facility] ####[facility] Fkzcwbalmj1767 [place] [phone]. Airam Tripathi FREE THYROXINE INDEX T7on FTI 1.57 Normal 1.30-4.50 [facility] Comment on above: Performed By: #### T 7, TSH, CMP ####[facility] Jjhgxmyoba6154 [place] [address]Dr. Airam Tripathi T3U 32.0 % Normal 30.0-39.0 [facility] Comment on above: Performed By: #### T 7, TSH, CMP ####[facility] Hhwrwhbapf5762 [place] [address]Dr. Airam Tripathi T4 [Mass/Vol] 4.90 ug/dL Normal 4.80-13.90 [facility] Comment on above: Performed By: #### T 7, TSH, CMP ####[facility] [address]lvsirnvfa[address] [place], [place] [address]Dr. Airam Tripathi PROF 14(COMP METB)on 04-08- 022 Albumin [Mass/Vol] 3.0 g/dL Critically low 3.4-5.0 [facility] Comment on above: Performed By: #### T 7, TSH, CMP ####[facility] Bqeglgltlw[address] [place], [place] [address]Dr. Airam Tripathi Albumin/Globulin [Mass ratio] 1.0 {ratio} Normal [facility] Comment on above: Performed By: #### T 7, TSH, CMP ####[facility] Qldtlsidcy5606 [place] [address]Dr. Airam Tripathi ALP [Catalytic activity/Vol] 106 U/L Normal 46-116 [facility] Comment on above: Performed By: #### T 7, TSH, CMP ####[facility] Gexldxjlbd[address] [place], [place] [address]Dr. Airam Tripathi ALT [Catalytic activity/Vol] 20 U/L Normal 14-59 [facility] Comment on above: Performed By: #### T 7, TSH, CMP ####[facility] Rbyuctemcg3499 [place] [address]Dr. Airam Tripathi Anion gap [Moles/Vol] 10.8 mmol/L Normal [facility] Comment on above: Performed By: #### T 7, TSH, CMP ####[facility] Sgewgzjtlp[address] [place], [place] [address]Dr. Airam Tripathi AST [Catalytic activity/Vol] 19 U/L Normal 15-37 [facility] Comment on above: Performed By: #### T 7, TSH, CMP ####[facility] Egewjnvqxl58[address] [place], [place] [address]Dr. Airam Tripathi Bilirubin [Mass/Vol] 0.3 mg/dL Normal 0.2-1.0 [facility] Comment on above: Performed By: #### T 7, TSH, CMP ####[facility] Rlklbnjfoa6874[address] [place], [place] [address]Dr. Airam Tripathi Calcium [Mass/Vol] 8.0 mg/dL Critically low 8.5-10.1 [facility] Comment on above: Performed By: #### T 7, TSH, CMP ####[facility] Whufnlnafu4589[address] [place], [place] [address]Dr. Airam Tripathi Chloride [Moles/Vol] 100 mmol/L Normal 98-107 [facility] Comment on above: Performed By: #### T 7, TSH, CMP ####[facility] Ubyalrejiq37[address] [place], [place] [address]Dr. Airam Tripathi CO2 [Moles/Vol] 24.3 mmol/L Normal 21.0-32.0 [facility] Comment on above: Performed By: #### T 7, TSH, CMP ####[facility] Jvyucofduf[address] [place], [place] [address]Dr. Airam Tripathi Creatinine [Mass/Vol] 1.12 mg/dL Critically high 0.55-1.02 [facility] Comment on above: Performed By: #### T 7, TSH, CMP ####[facility] Fmsgrjitgv61[address] [place], [place] [address]Dr. Airam Tripathi EGFR-AF CITIZ[place] 60 mL/min/1.73m2 Normal >=60 [facility] Comment on above: Performed By: #### T 7, TSH, CMP ####[facility] Yqiymixqex5713 [place] [address]Dr. Airam Tripathi EGFR-NON AF CITIZEN OF [place] 50 mL/min/1.73m2 Critically low >=60 [facility] Comment on above: Performed By: #### T 7, TSH, CMP ####[facility] Qbyoqqmjvz1473 [place] [address]Dr. Airam Tripathi Globulin (S) [Mass/Vol] 3.0 g/dL Normal [facility] Comment on above: Performed By: #### T 7, TSH, CMP ####[facility] Uvehgqbiqy308[address] [place], [place] [address]Dr. Airam Tripathi Glucose [Mass/Vol] 76 mg/dL Normal 74-106 [facility] Comment on above: Performed By: #### T 7, TSH, CMP ####[facility] Eeqbibldrj859[address] [place], [place] [address]Dr. Airam Tripathi Potassium [Moles/Vol] 4.1 mmol/L Normal 3.5-5.1 [facility] Comment on above: Performed By: #### T 7, TSH, CMP ####[facility] Rmznubruil72[address] [place], [place] [address]Dr. Airam Tripathi Protein [Mass/Vol] 6.0 g/dL Critically low 6.4-8.2 [facility] Comment on above: Performed By: #### T 7, TSH, CMP ####[facility] Gazhsljugs9[address] [place], [place] [address]Dr. Airam Tripathi Sodium [Moles/Vol] 131 mmol/L Critically low 136-145 [facility] Comment on above: Performed By: #### T 7, TSH, CMP ####[facility] Zvxnjrlprc4[address] [place], [place] [address]Dr. Airam Tripathi Urea nitrogen [Mass/Vol] 32.0 mg/dL Critically high 7.0-18.0 [facility] Comment on above: Performed By: #### T 7, TSH, CMP ####[facility] Vmxfntsqnw[address]26[address] [place], [place] [address]Dr. Yilan Tripathi Urea nitrogen/Creatinine [Mass ratio] 28.6 mg/mg Normal [facility] Comment on above: Performed By: #### T 7, TSH, CMP ####[facility] Ptrfufunxn[address] [place], [place] [address]Dr. Airam Tripathi TSHon 04-08-2022 TSH 0.027 uIU/mL Critically low 0.358-3.740 [facility] Comment on above: Performed By: #### T 7, TSH, CMP ####[facility] [address]vukiggvmc[address] [place], [place] [address]Dr. Airam Tripathi UA RANDOMon 04-08-2022 Bilirubin Ql (U) Negative Normal NEGATIVE [facility] Comment on above: Performed By: #### U A ####[facility] Iwytkmpybg[address] [place], [place] [address]Dr. Airam Tripathi Clarity (U) CLEAR Normal CLEAR [facility] Comment on above: Performed By: #### U A ####[facility] Urcnmgdign4207[address] [place], [place] [address]Dr. Airam Tripathi Color (U) LT. YELLOW Normal YELLOW [facility] Comment on above: Performed By: #### U A ####[facility] Pmrygwujur97[address] [place], [place] [address]Dr. Airam Tripathi Glucose Ql (U) Negative Normal NEGATIVE [facility] Comment on above: Performed By: #### U A ####[facility] Usbdlfruqj6158[address] [place], [place] [address]Dr. Selenaneil Tripathi Hemoglobin Ql (U) Negative Normal NEGATIVE [facility] Comment on above: Performed By: #### U A ####[facility] Oufpdzhurr57[address] [place], [place] [address]Dr. Airam Tripathi Ketones Ql (U) Negative Normal NEGATIVE [facility] Comment on above: Performed By: #### U A ####[facility] Rpfkvyrevj1952[address] [place], [place] [address]Dr. Airam Tripathi LEUKOCYTES Negative Normal NEGATIVE [facility] Comment on above: Performed By: #### U A ####[facility] Prikarwtch[address] [place], [place] [address]Dr. Airam Tripathi Nitrite Ql (U) Negative Normal NEGATIVE [facility] Comment on above: Performed By: #### U A ####[facility] Cawqqsaqcz4561 [place] [address]DrKianna Airam Tripathi pH (U) 6.0 [pH] Normal 5-9 [facility] Comment on above: Performed By: #### U A ####[facility] Nwomovtiqc2221 [place] [address]DrKianna Airam Tripathi SPEC GRAVITY 1.010 Normal 1.005-<=1.02 5 [facility] Comment on above: Performed By: #### U A ####[facility] Iaycmfcuus5584 [place] [address]Dr. Airam Deuce UA PROTEIN Negative Normal NEGATIVE/ TRACE [facility] Comment on above: Performed By: #### U A ####[facility] Tfelxgrmkc[address] [place], [place] [address]Dr. Airam Deuce Urobilinogen Qn (U) 0.2 {Ligia'U}/dL Normal 0.2 - 1. 0 [facility] Comment on above: Performed By: #### U A ####[facility] Ytsucarxsn30[address] [place], [place] [address]DrKianna Airam Deuce URINE T PROTEIN CREAT RATIOo n 04-08-2022 UR PROT CREAT RAT 0.32 Normal [facility] Comment on above: Performed By: #### U RTPCR ####[facility] Scukndfhgw[address] [place], [place] [address]Dr. Airam Tripathi UR TOTAL PROTEIN <6.0 Normal <=12.0 [facility] Comment on above: Performed By: #### U RTPCR ####[facility] Ktuibtigdh0436[address] [place], [place] [address]Dr. Airam Tripathi URINE CREAT 18.75 mg/dL Critically low 20.00-300.00 [facility] Comment on above: Performed By: #### U RTPCR ####[facility] Gjxsemzouz[address] [place], [place] [address]DrKianna Airam Deuce FERRITINon 04-06-2022 Ferritin [Mass/Vol] 99.0 ng/mL Normal 8.0-252.0 [facility] Comment on above: Performed By: #### F ETIBC, VITAD, FERR ####[facility] Ldbjdtgema2155 [place] [address]Dr. Airam Tripathi IRON AND TIBCon 04-06-2022 % SATURATION 15.4 % Normal [facility] Comment on above: Performed By: #### F ETIBC, VITAD, FERR ####[facility] Neliblajai7333 [place] [address]Dr. Airam Tripathi Iron [Mass/Vol] 43.0 ug/dL Critically low 50.0-170.0 [facility] Comment on above: Performed By: #### F ETIBC, VITAD, FERR ####[facility] Kqrykxmgig22[address] [place], [place] [address]Dr. Airam Tripathi TIBC DIRECT 280.0 ug/dL Normal 250.0-450.0 [facility] Comment on above: Performed By: #### F ETIBC, VITAD, FERR ####[facility] Yxoxtbycqn[address] [place], [place] [address]Dr. Airam Tripathi PROF 14(COMP METB)on 022 Albumin [Mass/Vol] 3.2 g/dL Critically low 3.4-5.0 Th [facility] Comment on above: Performed By: #### C MP, URIC ####[facility] [address]zmuqqqfuk8[address] [place], [place] [address]Dr. Airam Tripathi Albumin/Globulin [Mass ratio] 1.0 {ratio} Normal [facility] Comment on above: Performed By: #### C MP, URIC ####[facility] Jncutnuviq[address] [place], [place] [address]Dr. Airam Tripathi ALP [Catalytic activity/Vol] 118 U/L Critically high 46-116 [facility] Comment on above: Performed By: #### C MP, URIC ####[facility] Lmbolosqzo94[address] [place], [place] [address]Dr. Airam Tripathi ALT [Catalytic activity/Vol] 24 U/L Normal 14-59 [facility] Comment on above: Performed By: #### C MP, URIC ####[facility] Dwwgstorgc1052 [place] [phone]. Airam Tripathi Anion gap [Moles/Vol] 14.4 mmol/L Normal [facility] Comment on above: Performed By: #### C MP, URIC ####[facility] Qykyxyqxxp4996 [place] [address]Dr. Airam Tripathi AST [Catalytic activity/Vol] 21 U/L Normal 15-37 [facility] Comment on above: Performed By: #### C MP, URIC ####[facility] Razpedfgbb2883 [place] [address]Dr. Airam Tripathi Bilirubin [Mass/Vol] 0.3 mg/dL Normal 0.2-1.0 [facility] Comment on above: Performed By: #### C MP, URIC ####[facility] [address]fctdjps[address] [place], [place] [address]Dr. Airam Tripathi Calcium [Mass/Vol] 8.0 mg/dL Critically low 8.5-10.1 [facility] Comment on above: Performed By: #### C MP, URIC ####[facility] [address]fwykvpfk[address] [place], [place] [address]Dr. Airam Tripathi Chloride [Moles/Vol] 98 mmol/L Normal 98-107 [facility] Comment on above: Performed By: #### C MP, URIC ####[facility] [address]fglwsrggn[address] [place], [place] [address]Dr. Airam Tripathi CO2 [Moles/Vol] 22.0 mmol/L Normal 21.0-32.0 [facility] Comment on above: Performed By: #### C MP, URIC ####[facility] [address]xaomzqyhg[address] [place], [place] [address]Dr. Airam Tripathi Creatinine [Mass/Vol] 1.86 mg/dL Critically high 0.55-1.02 [facility] Comment on above: Performed By: #### C MP, URIC ####[facility] [address]vmxzvcvbb[address] [place], [place] [address]Dr. Airam Tripathi EGFR-AF CITIZEN [place] 33 mL/min/1.73m2 Critically low >=60 [facility] Comment on above: Performed By: #### C MP, URIC ####[facility] Knaeqplohl0736 [place] [address]Dr. Airam Tripathi EGFR-NON AF CITIZEN OF [place] 28 mL/min/1.73m2 Critically low >=60 [facility] Comment on above: Performed By: #### C MP, URIC ####[facility] Dxmhbmosrj[address] [place], [place] [address]Dr. Airam Tripathi Globulin (S) [Mass/Vol] 3.1 g/dL Normal [facility] Comment on above: Performed By: #### C MP, URIC ####[facility] Fhryoswdwg6[address] [place], [place] [address]Dr. Airam Tripathi Glucose [Mass/Vol] 93 mg/dL Normal 74-106 [facility] Comment on above: Performed By: #### C MP, URIC ####[facility] Ykylbcqxbw35[address] [place], [place] [address]Dr. Airam Tripathi Potassium [Moles/Vol] 4.4 mmol/L Normal 3.5-5.1 [facility] Comment on above: Performed By: #### C MP, URIC ####[facility] Wpreemwppb7938[address] [place], [place] [address]Dr. Airam Tripathi Protein [Mass/Vol] 6.3 g/dL Critically low 6.4-8.2 Th [facility] Comment on above: Performed By: #### C MP, URIC ####[facility] Dbhhehmbri49[address] [place], [place] [address]Dr. Airam Tripathi Sodium [Moles/Vol] 130 mmol/L Critically low 136-145 [facility] Comment on above: Performed By: #### C MP, URIC ####[facility] Yyligjjilz[address] [place], [place] [address]Dr. Airam Tripathi Urea nitrogen [Mass/Vol] 49.0 mg/dL Critically high 7.0-18.0 [facility] Comment on above: Performed By: #### C MP, URIC ####[facility] Rnnyhxzhkv[address] [place], [place] [address]Dr. Airam Tripathi Urea nitrogen/Creatinine [Mass ratio] 26.3 mg/mg Normal [facility] Comment on above: Performed By: #### C MP, URIC ####[facility] [address]wclfwks[address] [place] [address]Dr. Airam Tripathi URIC ACID SERUMon 04-06-2022 Urate [Mass/Vol] 6.5 mg/dL Critically high 2.6-6.0 [facility] Comment on above: Performed By: #### C MP, URIC ####[facility] Mksuxeaeej24[address] [place] [address]Dr. Airam Tripathi VITAMIN D 25 OHon 04-06-2022 VIT D 25-OH 74.5 ng/mL Normal [facility] Comment on above: Performed By: #### F ETIBC, VITAD, FERR ####[facility] Ntrygfbatb[address] [place] [address]Dr. Airam Tripathi VIT D RANGES SEE BELOW Normal [facility] Comment on above: Result Comment: <20 ng/mL Vit D deficient 20 - <30 ng/mL Vit D insufficient 30 - 100 ng/mL Vit D sufficient >100 ng/mL Potential Toxicity Performed By: #### F ETIBC, VITAD, FERR ####[facility] Csnqqubfbn12[address] [place] [address]Dr. Airam Tripathi OSMOLALITYon 04-01-2022 Osmolality [Osmolality] 284 mosm/kg Normal 275-295 [facility] Comment on above: Performed By: #### O SMO ####[facility] Mxxqtzmjcv7649 [place] [address]Dr. Airam Tripathi CBC AUTO DIFFon 03-31-2022 BASO # 0.0 103/ul Normal 0.0-0.1 [facility] Comment on above: Performed By: #### C BC ####[facility] Oxdhuaohgb22[address] [place] [address]Dr. Airam Tripathi Basophils/100 WBC (Bld) 0.3 % Normal 0.2-2.0 [facility] Comment on above: Performed By: #### C BC ####[facility] Qplbgoplth8198 [place] [address]Dr. Airam Tripathi EO # 0.1 103/ul Normal 0.0-0.7 [facility] Comment on above: Performed By: #### C BC ####[facility] Vahrdfdccv23[address] [place], [place] [address]Dr. Airam Tripathi Eosinophils/100 WBC (Bld) 2.0 % Normal 0.9-7.0 [facility] Comment on above: Performed By: #### C BC ####[facility] Bufuoxgyun[address] [place], [place] [address]Dr. Airam Tripathi Erythrocyte distribution width (RBC) [Ratio] 13.5 % Normal 11.0-15.0 [facility] Comment on above: Performed By: #### C BC ####[facility] Ilzbgkrbek3426[address] [place], [place] [address]Dr. Airam Tripathi Hematocrit (Bld) [Volume fraction] 32.5 % Critically low 36.0-48.0 [facility] Comment on above: Performed By: #### C BC ####[facility] Jxynapadya1324[address] [place], [place] [address]Dr. Airam Tripathi Hemoglobin (Bld) [Mass/Vol] 10.1 g/dL Critically low 12.0-16.0 [facility] Comment on above: Performed By: #### C BC ####[facility] Vzysxlldyu9460[address] [place], [place] [address]Dr. Airam Tripathi IG # 0.03 10e3/ul Normal 0.00-0.03 [facility] Comment on above: Performed By: #### C BC ####[facility] Swzorlyoyv[address] [place], [place] [address]Dr. Airam Tripathi IG % 0.4 % Normal 0.0-0.5 [facility] Comment on above: Performed By: #### C BC ####[facility] Wnrdydhmzr101[address] [place], [place] [address]Dr. Airam Tripathi LYMPH # 1.6 103/ul Normal 1.2-3.8 [facility] Comment on above: Performed By: #### C BC ####[facility] Gwmbjixovj8185 [place] [address]Dr. Airam Deuce Lymphocytes/100 WBC (Bld) 22.6 % Normal 20.5-60.0 [facility] Comment on above: Performed By: #### C BC ####[facility] Iopwmibgbo1898 [place] [address]Dr. Selenaneil Tripathi MANUAL DIFF REQ NO Normal [facility] Comment on above: Performed By: #### C BC ####[facility] Jwycadiccy5256 [place] [address]Dr. Airam Deuce MCH (RBC) [Entitic mass] 30.5 pg Normal 26.7-34.0 [facility] Comment on above: Performed By: #### C BC ####[facility] Abwogdazrn5514[address] [place], [place] [address]Dr. Airam Deuce MCHC (RBC) [Mass/Vol] 31.1 g/dL Normal 29.9-35.2 [facility] Comment on above: Performed By: #### C BC ####[facility] Pkdyopicvp8649 [place] [address]Dr. Selenaneil Tripathi MCV (RBC) [Entitic vol] 98.2 fL Normal 81.0-99.0 [facility] Comment on above: Performed By: #### C BC ####[facility] Mqrrxjzonu6[address] [place], [place] [address]Dr. Airam Tripathi MONO # 0.5 103/ul Normal 0.3-0.8 [facility] Comment on above: Performed By: #### C BC ####[facility] Kzpbhamgrw1282[address] [place], [place] [address]Dr. Selenaneil Tripathi Monocytes/100 WBC (Bld) 7.3 % Normal 1.7-12.0 [facility] Comment on above: Performed By: #### C BC ####[facility] Efubsdexkp1625[address] [place], [place] [address]Dr. Airam Tripathi NEUT # 4.7 103/ul Normal 1.4-6.5 [facility] Comment on above: Performed By: #### C BC ####[facility] Nltpyfctju9[address] [place], [place] [id number]. Airam Tripathi Neutrophils/100 WBC (Bld) 67.4 % Normal 43.0-75.0 [facility] Comment on above: Performed By: #### C BC ####[facility] Kffjxckcco6146 [place] [address]Dr. Selenaneil Deuce Platelet mean volume (Bld) [Entitic vol] 9.5 fL Normal 9.5-13.5 [facility] Comment on above: Performed By: #### C BC ####[facility] Xwvdrydrzd0112 [place] [address]Dr. Airam Tripathi PLT 273 103/ul Normal 150-450 [facility] Comment on above: Performed By: #### C BC ####[facility] Pollijvevg6966 [place] [address]Dr. Airam Tripathi RBC 3.31 106/ul Critically low 4.20-5.40 [facility] Comment on above: Performed By: #### C BC ####[facility] Tnfrutyxcq10[address] [place], [place] [address]Dr. Airam Tripathi WBC 7.0 103/ul Normal 4.0-11.0 [facility] Comment on above: Performed By: #### C BC ####[facility] Oepqtapwzb6255[address] [place], [place] [address]Dr. Airam Tripathi PROF 14(COMP METB)on 022 Albumin [Mass/Vol] 3.4 g/dL Normal 3.4-5.0 [facility] Comment on above: Performed By: #### C MP ####[facility] Plekcixwbt033[address] [place], [place] [address]Dr. Airam Tripathi Albumin/Globulin [Mass ratio] 1.1 {ratio} Normal [facility] Comment on above: Performed By: #### C MP ####[facility] Tsmoebwcou17[address] [place], [place] [address]Dr. Airam Tripathi ALP [Catalytic activity/Vol] 107 U/L Normal 46-116 [facility] Comment on above: Performed By: #### C MP ####[facility] Czavpkpjgs[address] [place], [place] [address]Dr. Airam Tripathi ALT [Catalytic activity/Vol] 22 U/L Normal 14-59 [facility] Comment on above: Performed By: #### C MP ####[facility] Ydsxusjuuv02[address] [place] [address]Dr. Airam Tripathi Anion gap [Moles/Vol] 6.8 mmol/L Normal [facility] Comment on above: Performed By: #### C MP ####[facility] Rprtapzckw4461 [place] [address]Dr. Airam Tripathi AST [Catalytic activity/Vol] 23 U/L Normal 15-37 [facility] Comment on above: Performed By: #### C MP ####[facility] Puhcapmddy78[address] [place] [address]Dr. Airam Deuce Bilirubin [Mass/Vol] 0.2 mg/dL Normal 0.2-1.0 [facility] Comment on above: Performed By: #### C MP ####[facility] Wquxtskrqn0602 [place] [address]Dr. Airam Deuce Calcium [Mass/Vol] 8.4 mg/dL Critically low 8.5-10.1 Th [facility] Comment on above: Performed By: #### C MP ####[facility] Ofghpouuvf79[address] [place], [place] [address]Dr. Airam Deuce Chloride [Moles/Vol] 100 mmol/L Normal 98-107 [facility] Comment on above: Performed By: #### C MP ####[facility] Rnhlqyqyjm05[address] [place] [address]Dr. Airam Deuce CO2 [Moles/Vol] 29.9 mmol/L Normal 21.0-32.0 [facility] Comment on above: Performed By: #### C MP ####[facility] Dwrpygddfw1647[address] [place], [place] [address]Dr. Airam Deuce Creatinine [Mass/Vol] 1.20 mg/dL Critically high 0.55-1.02 [facility] Comment on above: Performed By: #### C MP ####[facility] Bwtivlqwfc[address] [place], [place] [address]Dr. Airam Deuce EGFR-AF CITIZEN OF [place] 56 mL/min/1.73m2 Critically low >=60 [facility] Comment on above: Performed By: #### C MP ####[facility] Jszdegahle4[address] [place] [address]Dr. Selenaneil Deuce EGFR-NON AF CITIZEN OF [place] 46 mL/min/1.73m2 Critically low >=60 [facility] Comment on above: Performed By: #### C MP ####[facility] Rekpsfmyrc39[address] [place] [address]Dr. Airam Tripathi Globulin (S) [Mass/Vol] 3.0 g/dL Normal [facility] Comment on above: Performed By: #### C MP ####[facility] Jjslmkzjpa19[address] [place], [place] [address]Dr. Airam Tripathi Glucose [Mass/Vol] 57 mg/dL Critically low 74-106 [facility] Comment on above: Performed By: #### C MP ####[facility] Nqtxwfsqko6539[address] [place], [place] [address]Dr. Airam Tripathi Potassium [Moles/Vol] 3.7 mmol/L Normal 3.5-5.1 [facility] Comment on above: Performed By: #### C MP ####[facility] Emekozncar7794[address] [place], [place] [address]Dr. Airam Tripathi Protein [Mass/Vol] 6.4 g/dL Normal 6.4-8.2 [facility] Comment on above: Performed By: #### C MP ####[facility] Mkyseluqjz75[address] [place] [address]Dr. Airam Tripathi Sodium [Moles/Vol] 133 mmol/L Critically low 136-145 [facility] Comment on above: Performed By: #### C MP ####[facility] Flyhqjxtvj0[address] [place], [place] [address]Dr. Airam Tripathi Urea nitrogen [Mass/Vol] 39.0 mg/dL Critically high 7.0-18.0 [facility] Comment on above: Performed By: #### C MP ####[facility] Nsracrxkxs8219[address] [place], [place] [address]Dr. Airam Tripathi Urea nitrogen/Creatinine [Mass ratio] 32.5 mg/mg Normal [facility] Comment on above: Performed By: #### C MP ####[facility] Jynitexshu75[address] [place] [address]Dr. Airam Tripathi OSMOLALITYon 03-24-2022 Osmolality [Osmolality] 285 mosm/kg Normal 275-295 [facility] Comment on above: Performed By: #### O SMO ####[facility] Xjrzrfpotn[address] [place], [place] [address]Dr. Airam Tripathi CBC AUTO DIFFon 03-22-2022 BASO # 0.0 103/ul Normal 0.0-0.1 [facility] Comment on above: Performed By: #### C BC ####[facility] Zcqxuwdkcp7013 [place] [address]Dr. Airam Deuce Basophils/100 WBC (Bld) 0.4 % Normal 0.2-2.0 [facility] Comment on above: Performed By: #### C BC ####[facility] Zkydoaulzz57[address] [place], [place] [address]Dr. Airam Tripathi EO # 0.2 103/ul Normal 0.0-0.7 [facility] Comment on above: Performed By: #### C BC ####[facility] Uxjjimyblj347[address] [place], [place] [address]Dr. Airam Tripathi Eosinophils/100 WBC (Bld) 2.3 % Normal 0.9-7.0 [facility] Comment on above: Performed By: #### C BC ####[facility] Inwhvtysrh8868[address] [place], [place] [address]Dr. Airam Tripathi Erythrocyte distribution width (RBC) [Ratio] 13.9 % Normal 11.0-15.0 [facility] Comment on above: Performed By: #### C BC ####[facility] Dzsbwrbqzb2575[address] [place], [place] [address]Dr. Airam Tripathi Hematocrit (Bld) [Volume fraction] 32.6 % Critically low 36.0-48.0 [facility] Comment on above: Performed By: #### C BC ####[facility] [address]adcxfny[address] [place] [phone]. Airam Tripathi Hemoglobin (Bld) [Mass/Vol] 10.3 g/dL Critically low 12.0-16.0 [facility] Comment on above: Performed By: #### C BC ####[facility] Zvexenrlvj0126 [place] [phone]. Airam Tripathi IG # 0.11 10e3/ul Critically high 0.00-0.03 [facility] Comment on above: Performed By: #### C BC ####[facility] Sdkegggjgj7141 [place] [address]Dr. Airam Tripathi IG % 1.4 % Critically high 0.0-0.5 [facility] Comment on above: Performed By: #### C BC ####[facility] Gohugfpswh[address] [place], [place] [address]Dr. Airam Tripathi LYMPH # 1.3 103/ul Normal 1.2-3.8 [facility] Comment on above: Performed By: #### C BC ####[facility] Ogmxabfeqc05[address] [place], [place] [address]Dr. Airam Tripathi Lymphocytes/100 WBC (Bld) 15.9 % Critically low 20.5-60.0 [facility] Comment on above: Performed By: #### C BC ####[facility] Elziycnydy8[address] [place] [address]Dr. Airam Trpiathi MANUAL DIFF REQ NO Normal [facility] Comment on above: Performed By: #### C BC ####[facility] Biwvcdwmku[address] [place], [place] [address]Dr. Airam Tripathi MCH (RBC) [Entitic mass] 30.7 pg Normal 26.7-34.0 [facility] Comment on above: Performed By: #### C BC ####[facility] Ewyahxhugn16[address] [place], [place] [address]Dr. Airam Tripathi MCHC (RBC) [Mass/Vol] 31.6 g/dL Normal 29.9-35.2 [facility] Comment on above: Performed By: #### C BC ####[facility] Pmphhyfmrh4656 [place] [phone]. Airam Tripathi MCV (RBC) [Entitic vol] 97.0 fL Normal 81.0-99.0 [facility] Comment on above: Performed By: #### C BC ####[facility] Ubfolldppt2409 [place] [phone]. Airam Tripathi MONO # 0.6 103/ul Normal 0.3-0.8 [facility] Comment on above: Performed By: #### C BC ####[facility] Juixcbzssj6195 [place] [phone]. Airam Tripathi Monocytes/100 WBC (Bld) 6.9 % Normal 1.7-12.0 [facility] Comment on above: Performed By: #### C BC ####[facility] Yqdgewhtrq9365 [place] [phone]. Airam Tripathi NEUT # 5.9 103/ul Normal 1.4-6.5 [facility] Comment on above: Performed By: #### C BC ####[facility] Gihrhrsroo5173 [place] [phone]. Airam Tripathi Neutrophils/100 WBC (Bld) 73.1 % Normal 43.0-75.0 [facility] Comment on above: Performed By: #### C BC ####[facility] Dssneodtew0526 [place] [phone]. Airam Tripathi Platelet mean volume (Bld) [Entitic vol] 9.5 fL Normal 9.5-13.5 [facility] Comment on above: Performed By: #### C BC ####[facility] Vwhnxortek3761 [place] [phone]. Airam Tripathi PLT 313 103/ul Normal 150-450 [facility] Comment on above: Performed By: #### C BC ####[facility] Pnsdtdlzbq0511 [place] [phone]. Airam Tripathi RBC 3.36 106/ul Critically low 4.20-5.40 [facility] Comment on above: Performed By: #### C BC ####[facility] Ybesnehjaq0340 [place] [address]Dr. Airam Tripathi WBC 8.1 103/ul Normal 4.0-11.0 [facility] Comment on above: Performed By: #### C BC ####[facility] Hticoyfxaw7678 [place] [address]Dr. Airam Tripathi PROF 14(COMP METB)on 022 Albumin [Mass/Vol] 3.3 g/dL Critically low 3.4-5.0 [facility] Comment on above: Performed By: #### C MP ####[facility] Uantmgchxp6468 [place] [address]Dr. Airam Tripathi Albumin/Globulin [Mass ratio] 1.0 {ratio} Normal [facility] Comment on above: Performed By: #### C MP ####[facility] Srhllqreyo[address] [place], [place] [address]Dr. Airam Tripathi ALP [Catalytic activity/Vol] 113 U/L Normal 46-116 [facility] Comment on above: Performed By: #### C MP ####[facility] Yajmmodbyk[address] [place], [place] [address]Dr. Selenaneil Tripathi ALT [Catalytic activity/Vol] 21 U/L Normal 14-59 [facility] Comment on above: Performed By: #### C MP ####[facility] Iyzcerbhyx35[address] [place], [place] [address]Dr. Airam Tripathi Anion gap [Moles/Vol] 12.2 mmol/L Normal [facility] Comment on above: Performed By: #### C MP ####[facility] Vpnidfxyuv[address] [place], [place] [address]Dr. Selenaneil Tripathi AST [Catalytic activity/Vol] 21 U/L Normal 15-37 [facility] Comment on above: Performed By: #### C MP ####[facility] Byyyusgyzd138[address] [place], [place] [address]Dr. Airam Tripathi Bilirubin [Mass/Vol] 0.2 mg/dL Normal 0.2-1.0 [facility] Comment on above: Performed By: #### C MP ####[facility] Ojoarbsfwv5158[address] [place], [place] [address]Dr. Airam Tripathi Calcium [Mass/Vol] 8.4 mg/dL Critically low 8.5-10.1 Th e [facility] Comment on above: Performed By: #### C MP ####[facility] Jywfarsfhz4516 [place] [address]Dr. Airam Tripathi Chloride [Moles/Vol] 103 mmol/L Normal 98-107 [facility] Comment on above: Performed By: #### C MP ####[facility] Jzscblqrfq5692 [place] [address]Dr. iAram Tripathi CO2 [Moles/Vol] 24.4 mmol/L Normal 21.0-32.0 [facility] Comment on above: Performed By: #### C MP ####[facility] Ewfdgbfxvu2919 [place] [address]Dr. Airam Tripathi Creatinine [Mass/Vol] 1.11 mg/dL Critically high 0.55-1.02 [facility] Comment on above: Performed By: #### C MP ####[facility] Ijrwasxano6537 [place] [address]Dr. Airam Tripathi EGFR-AF CITIZEN OF [place] >60 Normal >=60 [facility] Comment on above: Performed By: #### C MP ####[facility] Ztxjytjfjm0498 [place] [address]Dr. Airam Tripathi EGFR-NON AF CITIZEN OF [place] 50 mL/min/1.73m2 Critically low >=60 [facility] Comment on above: Performed By: #### C MP ####[facility] Msuylcyzkz8267 [place] [address]Dr. Airam Deuce Globulin (S) [Mass/Vol] 3.2 g/dL Normal [facility] Comment on above: Performed By: #### C MP ####[facility] Dtofaebebr3293 [place] [address]Dr. Airam Deuce Glucose [Mass/Vol] 84 mg/dL Normal 74-106 [facility] Comment on above: Performed By: #### C MP ####[facility] Zqrydcspfe0877 [place] [address]Dr. Airam Tripathi Potassium [Moles/Vol] 4.6 mmol/L Normal 3.5-5.1 [facility] Comment on above: Performed By: #### C MP ####[facility] Oxgrnbablo8026[address] [place], [place] [address]Dr. Airam Tripathi Protein [Mass/Vol] 6.5 g/dL Normal 6.4-8.2 [facility] Comment on above: Performed By: #### C MP ####[facility] Twxjfcjfoi023[address] [place], [place] [address]Dr. Airam Tripathi Sodium [Moles/Vol] 135 mmol/L Critically low 136-145 [facility] Comment on above: Performed By: #### C MP ####[facility] Mknwdoytrd3662[address] [place], [place] [address]Dr. Airam Deuce Urea nitrogen [Mass/Vol] 39.0 mg/dL Critically high 7.0-18.0 [facility] Comment on above: Performed By: #### C MP ####[facility] Nnmiqitfbh4[address] [place], [place] [address]Dr. Airam Tripathi Urea nitrogen/Creatinine [Mass ratio] 35.1 mg/mg Normal [facility] Comment on above: Performed By: #### C MP ####[facility] Fefkqwibgr25[address] [place], [place] [address]Dr. Airam Tripathi OSMOLALITYon 03-17-2022 Osmolality [Osmolality] 277 mosm/kg Normal 275-295 [facility] Comment on above: Performed By: #### O SMO ####[facility] Tqgrrirsdy65[address] [place], [place] [address]Dr. Airam Tripathi CBC AUTO DIFFon 03-15-2022 BASO # 0.0 103/ul Normal 0.0-0.1 [facility] Comment on above: Performed By: #### C BC ####[facility] Kqvfeolmly[address] [place], [place] [address]Dr. Airam Tripathi Basophils/100 WBC (Bld) 0.4 % Normal 0.2-2.0 [facility] Comment on above: Performed By: #### C BC ####[facility] Aekcgzkfvk[address] [place] [address]Dr. Airam Tripathi EO # 0.1 103/ul Normal 0.0-0.7 [facility] Comment on above: Performed By: #### C BC ####[facility] Hkdqxoujwu2716[address] [place], [place] [address]Dr. Airam Tripathi Eosinophils/100 WBC (Bld) 2.4 % Normal 0.9-7.0 [facility] Comment on above: Performed By: #### C BC ####[facility] Yahgdjvwyg[address] [place], [place] [address]Dr. Airam Tripathi Erythrocyte distribution width (RBC) [Ratio] 13.9 % Normal 11.0-15.0 [facility] Comment on above: Performed By: #### C BC ####[facility] Zzvqjsrape[address] [place], [place] [address]Dr. Airam Tripathi Hematocrit (Bld) [Volume fraction] 31.2 % Critically low 36.0-48.0 [facility] Comment on above: Performed By: #### C BC ####[facility] [address]sjfrvowyi[address] [place], [place] [address]Dr. Airam Tripathi Hemoglobin (Bld) [Mass/Vol] 9.9 g/dL Critically low 12.0-16.0 [facility] Comment on above: Performed By: #### C BC ####[facility] Ztnifbrmxm[address] [place], [place] [address]Dr. Airam Tripathi IG # 0.03 10e3/ul Normal 0.00-0.03 [facility] Comment on above: Performed By: #### C BC ####[facility] Nfcngfpxrf32[address] [place], [place] [address]Dr. Airam Tripathi IG % 0.6 % Critically high 0.0-0.5 [facility] Comment on above: Performed By: #### C BC ####[facility] Djejdoczos[address] [place], [place] [address]Dr. Ariam Tripathi LYMPH # 1.5 103/ul Normal 1.2-3.8 [facility] Comment on above: Performed By: #### C BC ####[facility] Edgihimnbe0922 [place] [id number]. Airam Deuce Lymphocytes/100 WBC (Bld) 29.4 % Normal 20.5-60.0 [facility] Comment on above: Performed By: #### C BC ####[facility] Dkaqufprqb8518 [place] [address]Dr. Selenaneil Tripathi MANUAL DIFF REQ NO Normal [facility] Comment on above: Performed By: #### C BC ####[facility] Twhiaxqyrz7360 [place] [address]Dr. Selenaneil Tripathi MCH (RBC) [Entitic mass] 30.5 pg Normal 26.7-34.0 [facility] Comment on above: Performed By: #### C BC ####[facility] Pxhbmopolt93[address] [place], [place] [address]Dr. Selenaneil Tripathi MCHC (RBC) [Mass/Vol] 31.7 g/dL Normal 29.9-35.2 [facility] Comment on above: Performed By: #### C BC ####[facility] Zjqlybvmmk5183 [place] [address]Dr. Airam Tripathi MCV (RBC) [Entitic vol] 96.0 fL Normal 81.0-99.0 [facility] Comment on above: Performed By: #### C BC ####[facility] Jjnozisufo[address] [place], [place] [address]Dr. Airam Tripathi MONO # 0.4 103/ul Normal 0.3-0.8 [facility] Comment on above: Performed By: #### C BC ####[facility] Jhsvvifzjf0237 [place] [address]Dr. Airam Tripathi Monocytes/100 WBC (Bld) 7.0 % Normal 1.7-12.0 [facility] Comment on above: Performed By: #### C BC ####[facility] Zrcolsisdt58[address] [place], [place] [address]Dr. Airam Tripathi NEUT # 3.0 103/ul Normal 1.4-6.5 [facility] Comment on above: Performed By: #### C BC ####[facility] Bhnejxlype9584 [place] [address]Dr. Airam Deuce Neutrophils/100 WBC (Bld) 60.2 % Normal 43.0-75.0 [facility] Comment on above: Performed By: #### C BC ####[facility] Vnlkrlaetp8381 [place] [address]Dr. Airam Tripathi Platelet mean volume (Bld) [Entitic vol] 9.6 fL Normal 9.5-13.5 [facility] Comment on above: Performed By: #### C BC ####[facility] Ogvshhhpfz4096 [place] [address]Dr. Airam Tripathi PLT 258 103/ul Normal 150-450 [facility] Comment on above: Performed By: #### C BC ####[facility] Wylnplfzjp1974 [place] [address]Dr. Airam Tripathi RBC 3.25 106/ul Critically low 4.20-5.40 [facility] Comment on above: Performed By: #### C BC ####[facility] Kdfuoqokfn5[address] [place], [place] [address]Dr. Airam Tripathi WBC 5.0 103/ul Normal 4.0-11.0 [facility] Comment on above: Performed By: #### C BC ####[facility] Ivumkryohe8862[address] [place], [place] [address]Dr. Airam Tripathi PROF 14(COMP METB)on 022 Albumin [Mass/Vol] 3.3 g/dL Critically low 3.4-5.0 [facility] Comment on above: Performed By: #### C MP ####[facility] Mhschxpzdx6824 [place] [address]Dr. Airam Tripathi Albumin/Globulin [Mass ratio] 1.1 {ratio} Normal [facility] Comment on above: Performed By: #### C MP ####[facility] Tztrbixawq1740 [place] [address]Dr. Selenaneil Tripathi ALP [Catalytic activity/Vol] 106 U/L Normal 46-116 [facility] Comment on above: Performed By: #### C MP ####[facility] Wvxvjmxrvt9519 [place] [phone]. Airam Tripathi ALT [Catalytic activity/Vol] 22 U/L Normal 14-59 [facility] Comment on above: Performed By: #### C MP ####[facility] Bzrzrsawjx7[address] [place], [place] [address]Dr. Airam Tripathi Anion gap [Moles/Vol] 11.4 mmol/L Normal [facility] Comment on above: Performed By: #### C MP ####[facility] Wzfijtnata6544[address] [place], [place] [address]Dr. Airam Tripathi AST [Catalytic activity/Vol] 22 U/L Normal 15-37 [facility] Comment on above: Performed By: #### C MP ####[facility] Mzlymcgqfr2000[address] [place], [place] [address]Dr. Airam Tripathi Bilirubin [Mass/Vol] 0.3 mg/dL Normal 0.2-1.0 [facility] Comment on above: Performed By: #### C MP ####[facility] Cteeusafkx896[address] [place], [place] [address]Dr. Airam Tripathi Calcium [Mass/Vol] 8.1 mg/dL Critically low 8.5-10.1 [facility] Comment on above: Performed By: #### C MP ####[facility] Mymnxtfwgf0107[address] [place], [place] [address]Dr. Airam Tripathi Chloride [Moles/Vol] 100 mmol/L Normal 98-107 [facility] Comment on above: Performed By: #### C MP ####[facility] Ofpzxnprfo9915[address] [place], [place] [address]Dr. Airam Tripathi CO2 [Moles/Vol] 25.6 mmol/L Normal 21.0-32.0 [facility] Comment on above: Performed By: #### C MP ####[facility] Whwgcjgrfr0287[address] [place], [place] [address]Dr. Airam Tripathi Creatinine [Mass/Vol] 1.21 mg/dL Critically high 0.55-1.02 [facility] Comment on above: Performed By: #### C MP ####[facility] Peaitxqgkt5954 [place] [address]Dr. Airam Tripathi EGFR-AF CITIZEN OF [place] 55 mL/min/1.73m2 Critically low >=60 [facility] Comment on above: Performed By: #### C MP ####[facility] Jmtriskjod3027 [place] [address]Dr. Airam Tripathi EGFR-NON AF CITIZEN OF [place] 45 mL/min/1.73m2 Critically low >=60 [facility] Comment on above: Performed By: #### C MP ####[facility] Sxayamwgdz5535[address] [place], [place] [address]Dr. Airam Deuce Globulin (S) [Mass/Vol] 3.0 g/dL Normal [facility] Comment on above: Performed By: #### C MP ####[facility] Gvjetcltjc8559[address] [place], [place] [address]Dr. Airam Tripathi Glucose [Mass/Vol] 84 mg/dL Normal 74-106 [facility] Comment on above: Performed By: #### C MP ####[facility] Mtigtxtdmm1697[address] [place], [place] [address]Dr. Airam Deuce Potassium [Moles/Vol] 4.0 mmol/L Normal 3.5-5.1 [facility] Comment on above: Performed By: #### C MP ####[facility] Eojvxexxza473[address] [place], [place] [address]Dr. Airam Tripathi Protein [Mass/Vol] 6.3 g/dL Critically low 6.4-8.2 [facility] Comment on above: Performed By: #### C MP ####[facility] Xnenegbmpg5908[address] [place], [place] [address]Dr. Airam Tripathi Sodium [Moles/Vol] 133 mmol/L Critically low 136-145 [facility] Comment on above: Performed By: #### C MP ####[facility] Biiwmblolc8605[address] [place], [place] [address]Dr. Airam Tripathi Urea nitrogen [Mass/Vol] 29.0 mg/dL Critically high 7.0-18.0 [facility] Comment on above: Performed By: #### C MP ####[facility] Ajabpjlijj8384 [place] [address]Dr. Airam Tripathi Urea nitrogen/Creatinine [Mass ratio] 24.0 mg/mg Normal [facility] Comment on above: Performed By: #### C MP ####[facility] Nyhqwuhuwo5[address] [place], [place] [address]Dr. Airam Tripathi OSMOLALITYon 03-12-2022 Osmolality [Osmolality] 285 mosm/kg Normal 275-295 [facility] Comment on above: Performed By: #### O SMO ####[facility] Jmsaragowb2590[address] [place], [place] [address]Dr. Airam Tripathi CBC AUTO DIFFon 03-10-2022 BASO # 0.0 103/ul Normal 0.0-0.1 [facility] Comment on above: Performed By: #### C BC ####[facility] Hdtfdruztr[address] [place], [place] [address]Dr. Airam Tripathi Basophils/100 WBC (Bld) 0.3 % Normal 0.2-2.0 [facility] Comment on above: Performed By: #### C BC ####[facility] Bcswhiibtz340[address] [place], [place] [address]Dr. Airam Tripathi EO # 0.2 103/ul Normal 0.0-0.7 [facility] Comment on above: Performed By: #### C BC ####[facility] Vamwgnznnl7[address] [place], [place] [address]Dr. Airam Tripathi Eosinophils/100 WBC (Bld) 2.7 % Normal 0.9-7.0 [facility] Comment on above: Performed By: #### C BC ####[facility] Qkabytycme5637[address] [place], [place] [address]Dr. Airam Tripathi Erythrocyte distribution width (RBC) [Ratio] 14.4 % Normal 11.0-15.0 [facility] Comment on above: Performed By: #### C BC ####[facility] Xurfqrsfzn998[address] [place], [place] [address]Dr. Airam Tripathi Hematocrit (Bld) [Volume fraction] 32.5 % Critically low 36.0-48.0 [facility] Comment on above: Performed By: #### C BC ####[facility] Lqcwqpqjzp1352 [place] [phone]. Airam Tripathi Hemoglobin (Bld) [Mass/Vol] 10.1 g/dL Critically low 12.0-16.0 [facility] Comment on above: Performed By: #### C BC ####[facility] Gtuqfxzicl9135 [place] [address]Dr. Airam Tripathi IG # 0.03 10e3/ul Normal 0.00-0.03 [facility] Comment on above: Performed By: #### C BC ####[facility] Lviibpjtud30[address] [place], [place] [address]Dr. Airam Tripathi IG % 0.4 % Normal 0.0-0.5 [facility] Comment on above: Performed By: #### C BC ####[facility] Jmfnmbisti7[address] [place], [place] [address]Dr. Airam Tripathi LYMPH # 1.4 103/ul Normal 1.2-3.8 [facility] Comment on above: Performed By: #### C BC ####[facility] Rdgghyasuq823224 [address] [place], [place] [address]Dr. Airam Tripathi Lymphocytes/100 WBC (Bld) 19.4 % Critically low 20.5-60.0 [facility] Comment on above: Performed By: #### C BC ####[facility] Moxokxocom6535[address] [place], [place] [address]Dr. Airam Tripathi MANUAL DIFF REQ NO Normal [facility] Comment on above: Performed By: #### C BC ####[facility] Jnpdbmstsp035[address] [place], [place] [address]Dr. Airam Tripathi MCH (RBC) [Entitic mass] 30.6 pg Normal 26.7-34.0 [facility] Comment on above: Performed By: #### C BC ####[facility] Wrcaueqazw6[address] [place], [place] [address]Dr. Airam Tripathi MCHC (RBC) [Mass/Vol] 31.1 g/dL Normal 29.9-35.2 [facility] Comment on above: Performed By: #### C BC ####[facility] Lauurftmtc6161 [place] [phone]. Airam Tripathi MCV (RBC) [Entitic vol] 98.5 fL Normal 81.0-99.0 [facility] Comment on above: Performed By: #### C BC ####[facility] Uuohtuekry5719 [place] [phone]. Airam Tripathi MONO # 0.5 103/ul Normal 0.3-0.8 [facility] Comment on above: Performed By: #### C BC ####[facility] Jxoknyzlpr[address] [place], [place] [id number]. Airam Tripathi Monocytes/100 WBC (Bld) 6.7 % Normal 1.7-12.0 [facility] Comment on above: Performed By: #### C BC ####[facility] Qrhcvlirhy178[address] [place], [place] [address]Dr. Airam Tripathi NEUT # 5.2 103/ul Normal 1.4-6.5 [facility] Comment on above: Performed By: #### C BC ####[facility] Gameooexux67[address] [place], [place] [id number]. Airam Tripathi Neutrophils/100 WBC (Bld) 70.5 % Normal 43.0-75.0 [facility] Comment on above: Performed By: #### C BC ####[facility] Kttdkfhacs93[address] [place], [place] [address]Dr. Airam Tripathi Platelet mean volume (Bld) [Entitic vol] 9.8 fL Normal 9.5-13.5 [facility] Comment on above: Performed By: #### C BC ####[facility] Lcjphpwlnh2[address] [place], [place] [id number]. Airam Tripathi PLT 277 103/ul Normal 150-450 [facility] Comment on above: Performed By: #### C BC ####[facility] Lajrpvhutd4[address] [place], [place] [address]Dr. Airam Deuce RBC 3.30 106/ul Critically low 4.20-5.40 [facility] Comment on above: Performed By: #### C BC ####[facility] Hmjkdfoawn8389 [place] [address]Dr. Airam Tripathi WBC 7.4 103/ul Normal 4.0-11.0 [facility] Comment on above: Performed By: #### C BC ####[facility] Gbdmaakylc4623 [place] [address]Dr. Airam Tripathi PROF 14(COMP METB)on 022 Albumin [Mass/Vol] 3.6 g/dL Normal 3.4-5.0 [facility] Comment on above: Performed By: #### C MP ####[facility] Mbbwkewqkh5355 [place] [address]Dr. Airam Tripathi Albumin/Globulin [Mass ratio] 1.1 {ratio} Normal [facility] Comment on above: Performed By: #### C MP ####[facility] Wqfkccmnep[address] [place], [place] [address]Dr. Airam Tripathi ALP [Catalytic activity/Vol] 112 U/L Normal 46-116 [facility] Comment on above: Performed By: #### C MP ####[facility] Futnzhzmcj25[address] [place], [place] [address]Dr. Airam Tripathi ALT [Catalytic activity/Vol] 26 U/L Normal 14-59 [facility] Comment on above: Performed By: #### C MP ####[facility] Oolgaqtskb4[address] [place], [place] [address]Dr. Airam Tripathi Anion gap [Moles/Vol] 12.0 mmol/L Normal [facility] Comment on above: Performed By: #### C MP ####[facility] Xbqztylctp3832[address] [place], [place] [address]Dr. Airam Tripathi AST [Catalytic activity/Vol] 25 U/L Normal 15-37 [facility] Comment on above: Performed By: #### C MP ####[facility] Cgskxhgyav5779[address] [place], [place] [address]Dr. Airam Tripathi Bilirubin [Mass/Vol] 0.4 mg/dL Normal 0.2-1.0 [facility] Comment on above: Performed By: #### C MP ####[facility] Xwmtephktd1649 [place] [address]Dr. Airam Tripathi Calcium [Mass/Vol] 8.9 mg/dL Normal 8.5-10.1 [facility] Comment on above: Performed By: #### C MP ####[facility] Iicjnogcfp0290 [place] [address]Dr. Airam Tripathi Chloride [Moles/Vol] 101 mmol/L Normal 98-107 [facility] Comment on above: Performed By: #### C MP ####[facility] Gzidbusvwg742[address] [place], [place] [address]Dr. Airam Tripathi CO2 [Moles/Vol] 24.0 mmol/L Normal 21.0-32.0 [facility] Comment on above: Performed By: #### C MP ####[facility] Fcgujzvwwv9758[address] [place], [place] [address]Dr. Airam Tripathi Creatinine [Mass/Vol] 1.51 mg/dL Critically high 0.55-1.02 [facility] Comment on above: Performed By: #### C MP ####[facility] Lmpxrtsdai94[address] [place], [place] [address]Dr. Airam Tripathi EGFR-AF [place]IZ[place] 43 mL/min/1.73m2 Critically low >=60 [facility] Comment on above: Performed By: #### C MP ####[facility] Jrzgsjxfpc8725[address] [place], [place] [address]Dr. Airam Tripathi EGFR-NON AF CITIZEN OF [place] 35 mL/min/1.73m2 Critically low >=60 [facility] Comment on above: Performed By: #### C MP ####[facility] Fjyupukxrj5[address] [place], [place] [address]Dr. Airam Deuce Globulin (S) [Mass/Vol] 3.2 g/dL Normal [facility] Comment on above: Performed By: #### C MP ####[facility] Lkbxgqrsuz754[address] [place], [place] [address]Dr. Airam Deuce Glucose [Mass/Vol] 82 mg/dL Normal 74-106 [facility] Comment on above: Performed By: #### C MP ####[facility] Nzkbravugk5[address] [place], [place] [address]Dr. Airam Tripathi Potassium [Moles/Vol] 4.0 mmol/L Normal 3.5-5.1 [facility] Comment on above: Performed By: #### C MP ####[facility] Akqfmdxaeh99[address] [place], [place] [address]Dr. Airam Tripathi Protein [Mass/Vol] 6.8 g/dL Normal 6.4-8.2 [facility] Comment on above: Performed By: #### C MP ####[facility] Qfhayegzqq3519[address] [place], [place] [address]Dr. Airam Deuce Sodium [Moles/Vol] 133 mmol/L Critically low 136-145 [facility] Comment on above: Performed By: #### C MP ####[facility] Okzdjfaxxs2225[address] [place], [place] [address]Dr. Selenaneil Tripathi Urea nitrogen [Mass/Vol] 37.0 mg/dL Critically high 7.0-18.0 [facility] Comment on above: Performed By: #### C MP ####[facility] Rtzhmbvzrf036[address] [place], [place] [address]Dr. Airam Deuce Urea nitrogen/Creatinine [Mass ratio] 24.5 mg/mg Normal [facility] Comment on above: Performed By: #### C MP ####[facility] Uzgserrikn2084[address] [place], [place] [address]Dr. Airam Tripathi OSMOLALITYon 03-07-2022 Osmolality [Osmolality] 284 mosm/kg Normal 275-295 [facility] Comment on above: Performed By: #### O SMO ####[facility] Imhszauqwv1294[address] [place], [place] [address]Dr. Airam Deuce CBC AUTO DIFFon 03-04-2022 BASO # 0.0 103/ul Normal 0.0-0.1 [facility] Comment on above: Performed By: #### C BC ####[facility] Nobnvackuf5740[address] [place], [place] [address]Dr. Airam Deuce Basophils/100 WBC (Bld) 0.3 % Normal 0.2-2.0 [facility] Comment on above: Performed By: #### C BC ####[facility] Ypzfknxihs4798 [place] [phone]. Airam Tripathi EO # 0.1 103/ul Normal 0.0-0.7 [facility] Comment on above: Performed By: #### C BC ####[facility] Wmnqaqnbnh4785 [place] [address]Dr. Airam Tripathi Eosinophils/100 WBC (Bld) 2.0 % Normal 0.9-7.0 [facility] Comment on above: Performed By: #### C BC ####[facility] Xsjovnqvpf6[address] [place], [place] [address]Dr. Airam Tripathi Erythrocyte distribution width (RBC) [Ratio] 14.5 % Normal 11.0-15.0 [facility] Comment on above: Performed By: #### C BC ####[facility] Nzzaklgrki[address] [place], [place] [address]Dr. Airam Tripathi Hematocrit (Bld) [Volume fraction] 35.4 % Critically low 36.0-48.0 [facility] Comment on above: Performed By: #### C BC ####[facility] Mkuexnsshy97[address] [place], [place] [address]Dr. Airam Tripathi Hemoglobin (Bld) [Mass/Vol] 11.0 g/dL Critically low 12.0-16.0 [facility] Comment on above: Performed By: #### C BC ####[facility] Svuykcimgy[address] [place], [place] [address]Dr. Airam Tripathi IG # 0.03 10e3/ul Normal 0.00-0.03 [facility] Comment on above: Performed By: #### C BC ####[facility] Wrapylpddo0122 [place] [address]Dr. Airam Tripathi IG % 0.4 % Normal 0.0-0.5 [facility] Comment on above: Performed By: #### C BC ####[facility] Zmgdugsduh[address] [place], [place] [address]Dr. Airam Tripathi LYMPH # 1.7 103/ul Normal 1.2-3.8 [facility] Comment on above: Performed By: #### C BC ####[facility] Mjrghenbbz3609 [place] [phone]. Airam Tripathi Lymphocytes/100 WBC (Bld) 23.8 % Normal 20.5-60.0 [facility] Comment on above: Performed By: #### C BC ####[facility] Hhjresjssj1576 [place] [phone]. Airam Deuce MANUAL DIFF REQ NO Normal [facility] Comment on above: Performed By: #### C BC ####[facility] Uvqrgwzqph2382 [place] [phone]. Airam Deuce MCH (RBC) [Entitic mass] 30.0 pg Normal 26.7-34.0 [facility] Comment on above: Performed By: #### C BC ####[facility] Xkocostohn3444 [place] [address]Dr. Airam Deuce MCHC (RBC) [Mass/Vol] 31.1 g/dL Normal 29.9-35.2 [facility] Comment on above: Performed By: #### C BC ####[facility] Ofnxhmshmu6484 [place] [phone]. Airam Deuce MCV (RBC) [Entitic vol] 96.5 fL Normal 81.0-99.0 [facility] Comment on above: Performed By: #### C BC ####[facility] Jromwuhzuj9344 [place] [phone]. Airam Tripathi MONO # 0.5 103/ul Normal 0.3-0.8 [facility] Comment on above: Performed By: #### C BC ####[facility] Vtcueiyhbx5692 [place] [phone]. Selenaneil Tripathi Monocytes/100 WBC (Bld) 6.6 % Normal 1.7-12.0 [facility] Comment on above: Performed By: #### C BC ####[facility] Nmqyeuycpa8671 [place] [address]Dr. Airam Tripathi NEUT # 4.7 103/ul Normal 1.4-6.5 [facility] Comment on above: Performed By: #### C BC ####[facility] Xlglmygrhx5296 [place] [phone]. Airam Tripathi Neutrophils/100 WBC (Bld) 66.9 % Normal 43.0-75.0 [facility] Comment on above: Performed By: #### C BC ####[facility] Vnzcrvhufn0148 [place] [phone]. Airam Tripathi Platelet mean volume (Bld) [Entitic vol] 10.2 fL Normal 9.5-13.5 [facility] Comment on above: Performed By: #### C BC ####[facility] Cidartyrkk8218 [place] [phone]. Airam Tripathi PLT 270 103/ul Normal 150-450 [facility] Comment on above: Performed By: #### C BC ####[facility] Vdhjapkefl8072 [place] [address]Dr. Airam Tripathi RBC 3.67 106/ul Critically low 4.20-5.40 [facility] Comment on above: Performed By: #### C BC ####[facility] Cfjpjftrlf8388 [place] [phone]. Airam Tripathi WBC 7.0 103/ul Normal 4.0-11.0 [facility] Comment on above: Performed By: #### C BC ####[facility] Mcyzpmkruq2515 [place] [address]Dr. Airam Tripathi PROF 14(COMP METB)on 022 Albumin [Mass/Vol] 3.3 g/dL Critically low 3.4-5.0 [facility] Comment on above: Performed By: #### C MP ####[facility] Orqnskaqly5500 [place] [phone]. Airam Tripathi Albumin/Globulin [Mass ratio] 1.0 {ratio} Normal [facility] Comment on above: Performed By: #### C MP ####[facility] Fiwqigqvrk3715 [place] [address]Dr. Selenaneil Tripathi ALP [Catalytic activity/Vol] 107 U/L Normal 46-116 [facility] Comment on above: Performed By: #### C MP ####[facility] Wmjychvemc2084 [place] [phone]. Airam Tripathi ALT [Catalytic activity/Vol] 23 U/L Normal 14-59 [facility] Comment on above: Performed By: #### C MP ####[facility] Pdholzntqy9834 [place] [address]Dr. Airam Tripathi Anion gap [Moles/Vol] 13.0 mmol/L Normal Th [facility] Comment on above: Performed By: #### C MP ####[facility] [address]ulfnroan[address] [place], [place] [address]Dr. Airam Tripathi AST [Catalytic activity/Vol] 30 U/L Normal 15-37 [facility] Comment on above: Performed By: #### C MP ####[facility] [address]ovzccpayl[address] [place], [place] [address]Dr. Airam Tripathi Bilirubin [Mass/Vol] 0.2 mg/dL Normal 0.2-1.0 [facility] Comment on above: Performed By: #### C MP ####[facility] [address]uvvstoc[address] [place] [place], [place] [address]Dr. Airam Tripathi Calcium [Mass/Vol] 8.8 mg/dL Normal 8.5-10.1 [facility] Comment on above: Performed By: #### C MP ####[facility] Csuniranml[address] [place], [place] [address]Dr. Airam Tripathi Chloride [Moles/Vol] 103 mmol/L Normal 98-107 [facility] Comment on above: Performed By: #### C MP ####[facility] Hjdpfrngbh4[address] [place], [place] [address]Dr. Airam Tripathi CO2 [Moles/Vol] 24.9 mmol/L Normal 21.0-32.0 [facility] Comment on above: Performed By: #### C MP ####[facility] Ksgrozxiwn20[address] [place], [place] [address]Dr. Airam Tripathi Creatinine [Mass/Vol] 1.06 mg/dL Critically high 0.55-1.02 [facility] Comment on above: Performed By: #### C MP ####[facility] Rznhslfpyk04[address] [place] [phone]. Airam Deuce EGFR-AF CITIZEN OF [place] >60 Normal >=60 [facility] Comment on above: Performed By: #### C MP ####[facility] Oaqsrthtya9684 [place] [address]Dr. Airam Deuce EGFR-NON AF CITIZEN OF [place] 53 mL/min/1.73m2 Critically low >=60 [facility] Comment on above: Performed By: #### C MP ####[facility] Pcwkuhqrfk1510 [place] [address]Dr. Airam Deuce Globulin (S) [Mass/Vol] 3.2 g/dL Normal [facility] Comment on above: Performed By: #### C MP ####[facility] Eghtbbsnrt27[address] [place], [place] [address]Dr. Selenaneil Deuce Glucose [Mass/Vol] 91 mg/dL Normal 74-106 [facility] Comment on above: Performed By: #### C MP ####[facility] Hcobkuyzxw4455 [place] [address]Dr. Airam Deuce Potassium [Moles/Vol] 3.9 mmol/L Normal 3.5-5.1 [facility] Comment on above: Performed By: #### C MP ####[facility] Dkivgzwold62[address] [place], [place] [address]Dr. Airam Tripathi Protein [Mass/Vol] 6.5 g/dL Normal 6.4-8.2 [facility] Comment on above: Performed By: #### C MP ####[facility] Crtmousnch1605 [place] [address]Dr. Airam Deuce Sodium [Moles/Vol] 137 mmol/L Normal 136-145 [facility] Comment on above: Performed By: #### C MP ####[facility] Qtyjebpqsa0[address] [place], [place] [address]Dr. Airam Tripathi Urea nitrogen [Mass/Vol] 27.0 mg/dL Critically high 7.0-18.0 [facility] Comment on above: Performed By: #### C MP ####[facility] Zqabtjwufw[address] [place], [place] [address]Dr. Airam Tripathi Urea nitrogen/Creatinine [Mass ratio] 25.5 mg/mg Normal [facility] Comment on above: Performed By: #### C MP ####[facility] Bvpjoawurn[address] [place], [place] [address]Dr. Airam Tripathi OSMOLALITYon 03-03-2022 Osmolality [Osmolality] 383 mosm/kg Invalid Interpretation Code [id number] [facility] Comment on above: Result Comment: Ve rified by repeat analysis Performed By: #### O SMO ####[facility] Fnqhdfisop74[address] [place], [place] [address]Dr. Airam Tripathi CBC AUTO DIFFon 02-22-2022 BASO # 0.0 103/ul Normal 0.0-0.1 [facility] Comment on above: Performed By: #### C BC ####[facility] Bvwubxcdhu9[address] [place], [place] [address]Dr. Airam Tripathi Basophils/100 WBC (Bld) 0.4 % Normal 0.2-2.0 [facility] Comment on above: Performed By: #### C BC ####[facility] Kfwbwjglrk039[address] [place], [place] [address]Dr. Airam Tripathi EO # 0.2 103/ul Normal 0.0-0.7 [facility] Comment on above: Performed By: #### C BC ####[facility] Yiaidelhhb807[address] [place], [place] [address]Dr. Airam Tripathi Eosinophils/100 WBC (Bld) 3.9 % Normal 0.9-7.0 [facility] Comment on above: Performed By: #### C BC ####[facility] Dbdvqqurmk4247[address] [place], [place] [address]Dr. Airam Tripathi Erythrocyte distribution width (RBC) [Ratio] 13.9 % Normal 11.0-15.0 [facility] Comment on above: Performed By: #### C BC ####[facility] Boumgprevw77[address] [place], [place] [address]Dr. Airam Tripathi Hematocrit (Bld) [Volume fraction] 32.7 % Critically low 36.0-48.0 [facility] Comment on above: Performed By: #### C BC ####[facility] Fidxehwrue1853 [place] [phone]. Airam Tripathi Hemoglobin (Bld) [Mass/Vol] 10.7 g/dL Critically low 12.0-16.0 [facility] Comment on above: Performed By: #### C BC ####[facility] Vlaliwptoa5225 [place] [phone]. Airam Tripathi IG # 0.02 10e3/ul Normal 0.00-0.03 [facility] Comment on above: Performed By: #### C BC ####[facility] Mnsqdtmxtq9322 [place] [address]Dr. Airam Tripathi IG % 0.4 % Normal 0.0-0.5 [facility] Comment on above: Performed By: #### C BC ####[facility] Xiojzopwze61[address] [place], [place] [address]Dr. Airam Tripathi LYMPH # 1.2 103/ul Normal 1.2-3.8 [facility] Comment on above: Performed By: #### C BC ####[facility] Snbaqipwbf2521 [place] [address]Dr. Airam Tripathi Lymphocytes/100 WBC (Bld) 25.0 % Normal 20.5-60.0 [facility] Comment on above: Performed By: #### C BC ####[facility] Zglpsslrkf9079 [place] [address]Dr. Ariam Tripathi MANUAL DIFF REQ NO Normal [facility] Comment on above: Performed By: #### C BC ####[facility] Otqmckhkhm11[address] [place], [place] [address]Dr. Airam Tripathi MCH (RBC) [Entitic mass] 30.7 pg Normal 26.7-34.0 [facility] Comment on above: Performed By: #### C BC ####[facility] Zupnrsobqb7417 [place] [address]Dr. Airam Tripathi MCHC (RBC) [Mass/Vol] 32.7 g/dL Normal 29.9-35.2 [facility] Comment on above: Performed By: #### C BC ####[facility] Frkbtdvjcq2378 [place] [phone]. Airam Tripathi MCV (RBC) [Entitic vol] 93.7 fL Normal 81.0-99.0 [facility] Comment on above: Performed By: #### C BC ####[facility] Vykehwcwkp9052 [place] [phone]. Airam Tripathi MONO # 0.4 103/ul Normal 0.3-0.8 [facility] Comment on above: Performed By: #### C BC ####[facility] Jwciocqfqn280[address] [place], [place] [address]Dr. Airam Tripathi Monocytes/100 WBC (Bld) 7.5 % Normal 1.7-12.0 [facility] Comment on above: Performed By: #### C BC ####[facility] Ncuympwygk4914[address] [place], [place] [address]Dr. Airam Tripathi NEUT # 3.1 103/ul Normal 1.4-6.5 [facility] Comment on above: Performed By: #### C BC ####[facility] Tmbahxcveu[address] [place], [place] [address]Dr. Airam Tripathi Neutrophils/100 WBC (Bld) 62.8 % Normal 43.0-75.0 [facility] Comment on above: Performed By: #### C BC ####[facility] Ajlqamrbig01[address] [place], [place] [address]Dr. Airam Tripathi Platelet mean volume (Bld) [Entitic vol] 9.5 fL Normal 9.5-13.5 [facility] Comment on above: Performed By: #### C BC ####[facility] Dlutdqjvse7[address] [place], [place] [address]Dr. Airam Tripathi PLT 250 103/ul Normal 150-450 [facility] Comment on above: Performed By: #### C BC ####[facility] Bpkolnlwce1417[address] [place], [place] [address]Dr. Airam Tripathi RBC 3.49 106/ul Critically low 4.20-5.40 [facility] Comment on above: Performed By: #### C BC ####[facility] Yazbzeoqgn1092 [place] [address]Dr. Airam Tripathi WBC 4.9 103/ul Normal 4.0-11.0 [facility] Comment on above: Performed By: #### C BC ####[facility] Pkfxivkicn7378 [place] [address]Dr. Airam Tripathi PROF 14(COMP METB)on 022 Albumin [Mass/Vol] 3.3 g/dL Critically low 3.4-5.0 [facility] Comment on above: Performed By: #### C MP ####[facility] Npnpzzslki9770 [place] [address]Dr. Airam Tripathi Albumin/Globulin [Mass ratio] 1.0 {ratio} Normal [facility] Comment on above: Performed By: #### C MP ####[facility] Inlbivgtws0098 [place] [address]Dr. Airam Tripathi ALP [Catalytic activity/Vol] 127 U/L Critically high 46-116 [facility] Comment on above: Performed By: #### C MP ####[facility] Eudsboizhf3925 [place] [address]Dr. Airam Tripathi ALT [Catalytic activity/Vol] 22 U/L Normal 14-59 [facility] Comment on above: Performed By: #### C MP ####[facility] Ktqtrdrmxw3540 [place] [address]Dr. Airam Tripathi Anion gap [Moles/Vol] 11.9 mmol/L Normal [facility] Comment on above: Performed By: #### C MP ####[facility] Ehlhonrvrz2018 [place] [address]Dr. Airam Tripathi AST [Catalytic activity/Vol] 21 U/L Normal 15-37 [facility] Comment on above: Performed By: #### C MP ####[facility] Hgnrbwaibq5474 [place] [address]Dr. Airam Tripathi Bilirubin [Mass/Vol] 0.3 mg/dL Normal 0.2-1.0 [facility] Comment on above: Performed By: #### C MP ####[facility] Dcdrjgiljs4755 [place] [phone]. Airam Tripathi Calcium [Mass/Vol] 8.6 mg/dL Normal 8.5-10.1 [facility] Comment on above: Performed By: #### C MP ####[facility] Iwlozivpkr1299 [place] [phone]. Airam Tripathi Chloride [Moles/Vol] 105 mmol/L Normal 98-107 [facility] Comment on above: Performed By: #### C MP ####[facility] Xvpmnjvmjy3659 [place] [phone]. Airam Tripathi CO2 [Moles/Vol] 23.6 mmol/L Normal 21.0-32.0 [facility] Comment on above: Performed By: #### C MP ####[facility] Gojmvthxqr[address] [place], [place] [address]Dr. Airam Tripathi Creatinine [Mass/Vol] 1.29 mg/dL Critically high 0.55-1.02 [facility] Comment on above: Performed By: #### C MP ####[facility] Buehpibmpm[address] [place], [place] [address]Dr. Airam Tripathi EGFR-AF CITIZEN OF [place] 51 mL/min/1.73m2 Critically low >=60 [facility] Comment on above: Performed By: #### C MP ####[facility] Q[address]zppskmu[address] [place], [place] [address]Dr. Airam Tripathi EGFR-NON AF CITIZEN OF [place] 42 mL/min/1.73m2 Critically low >=60 [facility] Comment on above: Performed By: #### C MP ####[facility] Chimtzljwh0918 [place] [phone]. Airam Tripathi Globulin (S) [Mass/Vol] 3.2 g/dL Normal [facility] Comment on above: Performed By: #### C MP ####[facility] Rntgbnsjlo8672 [place] [address]Dr. Airam Deuce Glucose [Mass/Vol] 94 mg/dL Normal 74-106 [facility] Comment on above: Performed By: #### C MP ####[facility] Ghwztcwszf8233 [place] [phone]. Airam Tripathi Potassium [Moles/Vol] 3.5 mmol/L Normal 3.5-5.1 [facility] Comment on above: Performed By: #### C MP ####[facility] Iekppfognq2305 [place] [phone]. Airam Tripathi Protein [Mass/Vol] 6.5 g/dL Normal 6.4-8.2 [facility] Comment on above: Performed By: #### C MP ####[facility] Mcumxhlyra4361 [place] [phone]. Airam Tripathi Sodium [Moles/Vol] 137 mmol/L Normal 136-145 [facility] Comment on above: Performed By: #### C MP ####[facility] Wcaxtubppo2624 [place] [phone]. Airam Tripathi Urea nitrogen [Mass/Vol] 37.0 mg/dL Critically high 7.0-18.0 [facility] Comment on above: Performed By: #### C MP ####[facility] Unzekxitvc7000 [place] [phone]. Airam Tripathi Urea nitrogen/Creatinine [Mass ratio] 28.7 mg/mg Normal [facility] Comment on above: Performed By: #### C MP ####[facility] Nkxmwooyyi3813 [place] [phone]. Airam Tripathi OSMOLALITYon 02-20-2022 Osmolality [Osmolality] 283 mosm/kg Normal 275-295 [facility] Comment on above: Performed By: #### O SMO ####[facility] Booalcfwmj4706 [place] [phone]. Airam Tripathi CBC AUTO DIFFon 02-17-2022 BASO # 0.0 103/ul Normal 0.0-0.1 [facility] Comment on above: Performed By: #### C BC ####[facility] Bbofbbnkhs9063 [place] [phone]. Airam Tripathi Basophils/100 WBC (Bld) 0.3 % Normal 0.2-2.0 [facility] Comment on above: Performed By: #### C BC ####[facility] Njmcuavpij4605 [place] [phone]. Airam Tripathi EO # 0.1 103/ul Normal 0.0-0.7 [facility] Comment on above: Performed By: #### C BC ####[facility] Eevticwhal3969 [place] [address]Dr. Airam Tripathi Eosinophils/100 WBC (Bld) 1.6 % Normal 0.9-7.0 [facility] Comment on above: Performed By: #### C BC ####[facility] Uboxyqlqas48[address] [place], [place] [address]Dr. Airam Tripathi Erythrocyte distribution width (RBC) [Ratio] 13.4 % Normal 11.0-15.0 [facility] Comment on above: Performed By: #### C BC ####[facility] Mxzgnpkmgr020[address] [place], [place] [address]Dr. Airam Tripathi Hematocrit (Bld) [Volume fraction] 31.4 % Critically low 36.0-48.0 [facility] Comment on above: Performed By: #### C BC ####[facility] Tctwgtjcbh9[address] [place], [place] [address]Dr. Airam Tripathi Hemoglobin (Bld) [Mass/Vol] 10.0 g/dL Critically low 12.0-16.0 [facility] Comment on above: Performed By: #### C BC ####[facility] Qkpcysbvga075[address] [place], [place] [address]Dr. Airam Tripathi IG # 0.03 10e3/ul Normal 0.00-0.03 [facility] Comment on above: Performed By: #### C BC ####[facility] Swjlntvdjk8886[address] [place], [place] [address]Dr. Airam Tripathi IG % 0.4 % Normal 0.0-0.5 [facility] Comment on above: Performed By: #### C BC ####[facility] Mvdbsxpxyc334[address] [place], [place] [address]Dr. Airam Tripathi LYMPH # 1.6 103/ul Normal 1.2-3.8 [facility] Comment on above: Performed By: #### C BC ####[facility] Hvucmolicc1709 [place] [phone]. Airam Tripathi Lymphocytes/100 WBC (Bld) 24.5 % Normal 20.5-60.0 [facility] Comment on above: Performed By: #### C BC ####[facility] Ocqwtdwzhn2467 [place] [phone]. Airam Tripathi MANUAL DIFF REQ NO Normal [facility] Comment on above: Performed By: #### C BC ####[facility] Yxgjcnhvjp2[address] [place], [place] [address]Dr. Airam Deuce MCH (RBC) [Entitic mass] 30.2 pg Normal 26.7-34.0 [facility] Comment on above: Performed By: #### C BC ####[facility] Kycydzyzhd9[address] [place], [place] [address]Dr. Airam Deuce MCHC (RBC) [Mass/Vol] 31.8 g/dL Normal 29.9-35.2 [facility] Comment on above: Performed By: #### C BC ####[facility] Cduehwtxri[address] [place], [place] [address]Dr. Airam Tripathi MCV (RBC) [Entitic vol] 94.9 fL Normal 81.0-99.0 [facility] Comment on above: Performed By: #### C BC ####[facility] Oacjxcjiop235[address] [place], [place] [address]Dr. Airam Deuce MONO # 0.4 103/ul Normal 0.3-0.8 [facility] Comment on above: Performed By: #### C BC ####[facility] Wonkqtsovl8[address] [place], [place] [address]Dr. Airam Deuce Monocytes/100 WBC (Bld) 5.8 % Normal 1.7-12.0 [facility] Comment on above: Performed By: #### C BC ####[facility] Hoasotflzp[address] [place], [place] [address]Dr. Airam Tripathi NEUT # 4.5 103/ul Normal 1.4-6.5 [facility] Comment on above: Performed By: #### C BC ####[facility] Bwtrnocfxt0442 [place] [phone]. Airam Tripathi Neutrophils/100 WBC (Bld) 67.4 % Normal 43.0-75.0 [facility] Comment on above: Performed By: #### C BC ####[facility] Bwenfiyand8663 [place] [phone]. Airam Tripathi Platelet mean volume (Bld) [Entitic vol] 9.6 fL Normal 9.5-13.5 [facility] Comment on above: Performed By: #### C BC ####[facility] Bdwiselzzk5221 [place] [address]Dr. Airam Tripathi PLT 251 103/ul Normal 150-450 [facility] Comment on above: Performed By: #### C BC ####[facility] Ckgikmxfiz3878 [place] [address]Dr. Airam Tripathi RBC 3.31 106/ul Critically low 4.20-5.40 [facility] Comment on above: Performed By: #### C BC ####[facility] Dfohmrsmrl3759 [place] [address]Dr. Airam Deuce WBC 6.7 103/ul Normal 4.0-11.0 [facility] Comment on above: Performed By: #### C BC ####[facility] Miaydmqxey9088 [place] [address]Dr. Airam Tripathi PROF 14(COMP METB)on 022 Albumin [Mass/Vol] 3.5 g/dL Normal 3.4-5.0 [facility] Comment on above: Performed By: #### C MP ####[facility] Sjuyxppcsx3493 [place] [address]Dr. Airam Tripathi Albumin/Globulin [Mass ratio] 1.2 {ratio} Normal [facility] Comment on above: Performed By: #### C MP ####[facility] Bkrhtzxhgl1056 [place] [address]Dr. Airam Tripathi ALP [Catalytic activity/Vol] 130 U/L Critically high 46-116 [facility] Comment on above: Performed By: #### C MP ####[facility] Vjolmwwbib8711 [place] [phone]. Airam Tripathi ALT [Catalytic activity/Vol] 18 U/L Normal 14-59 [facility] Comment on above: Performed By: #### C MP ####[facility] Tovsnnmyak5752 [place] [phone]. Airam Tripathi Anion gap [Moles/Vol] 14.0 mmol/L Normal Th e [facility] Comment on above: Performed By: #### C MP ####[facility] Foyxkmhoxa3934 [place] [phone]. Airam Tripathi AST [Catalytic activity/Vol] 20 U/L Normal 15-37 [facility] Comment on above: Performed By: #### C MP ####[facility] Pamrsycavu0744 [place] [address]Dr. Airam Tripathi Bilirubin [Mass/Vol] 0.3 mg/dL Normal 0.2-1.0 [facility] Comment on above: Performed By: #### C MP ####[facility] Oxahatkywh[address] [place], [place] [address]Dr. Airam Tripathi Calcium [Mass/Vol] 8.5 mg/dL Normal 8.5-10.1 [facility] Comment on above: Performed By: #### C MP ####[facility] Pbnrnpewfm4[address] [place], [place] [address]Dr. Airam Tripathi Chloride [Moles/Vol] 100 mmol/L Normal 98-107 [facility] Comment on above: Performed By: #### C MP ####[facility] Xudttyxobn0167 [place] [phone]. Airam Tripathi CO2 [Moles/Vol] 22.7 mmol/L Normal 21.0-32.0 [facility] Comment on above: Performed By: #### C MP ####[facility] Fhppdzdxmn7820 [place] [phone]. Airam Tripathi Creatinine [Mass/Vol] 1.28 mg/dL Critically high 0.55-1.02 [facility] Comment on above: Performed By: #### C MP ####[facility] Frfyhuvciw2102 [place] [phone]. Airam Tripathi EGFR-AF CITIZEN OF [place] 52 mL/min/1.73m2 Critically low >=60 [facility] Comment on above: Performed By: #### C MP ####[facility] Riinvbltcs2481 [place] [phone]. Airam Tripathi EGFR-NON AF CITIZEN OF [place] 43 mL/min/1.73m2 Critically low >=60 [facility] Comment on above: Performed By: #### C MP ####[facility] Lcurxajpgp8297 [place] [phone]. Airam Tripathi Globulin (S) [Mass/Vol] 2.9 g/dL Normal [facility] Comment on above: Performed By: #### C MP ####[facility] Futaojvnsi5245 [place] [phone]. Airam Tripathi Glucose [Mass/Vol] 93 mg/dL Normal 74-106 [facility] Comment on above: Performed By: #### C MP ####[facility] Gswgjvhsel7802 [place] [phone]. Airam Tripathi Potassium [Moles/Vol] 3.7 mmol/L Normal 3.5-5.1 [facility] Comment on above: Performed By: #### C MP ####[facility] Tucriddzui5407 [place] [phone]. Airam Tripathi Protein [Mass/Vol] 6.4 g/dL Normal 6.4-8.2 [facility] Comment on above: Performed By: #### C MP ####[facility] Xlflscqoqr2031 [place] [phone]. Airam Tripathi Sodium [Moles/Vol] 133 mmol/L Critically low 136-145 [facility] Comment on above: Performed By: #### C MP ####[facility] Buytkcypnk0276 [place] [phone]. Airam Tripathi Urea nitrogen [Mass/Vol] 44.0 mg/dL Critically high 7.0-18.0 [facility] Comment on above: Performed By: #### C MP ####[facility] Jurnbrfjld3280 [place] [address]Dr. Airam Tripathi Urea nitrogen/Creatinine [Mass ratio] 34.4 mg/mg Normal [facility] Comment on above: Performed By: #### C MP ####[facility] Ththqwiern64[address] [place], [place] [address]Dr. Airam Tripathi OSMOLALITYon 02-10-2022 Osmolality [Osmolality] 288 mosm/kg Normal 275-295 [facility] Comment on above: Performed By: #### O SMO ####[facility] Jkvysspwsp896[address] [place], [place] [address]Dr. Airam Tripathi CBC AUTO DIFFon 02-08-2022 BASO # 0.0 103/ul Normal 0.0-0.1 [facility] Comment on above: Performed By: #### C BC ####[facility] Rxtqyameez78[address] [place], [place] [address]Dr. Selenaneil Tripathi Basophils/100 WBC (Bld) 0.3 % Normal 0.2-2.0 [facility] Comment on above: Performed By: #### C BC ####[facility] Fydfakmmjg[address] [place], [place] [address]Dr. Airam Tripathi EO # 0.2 103/ul Normal 0.0-0.7 [facility] Comment on above: Performed By: #### C BC ####[facility] Smgdbxretm217[address] [place], [place] [address]Dr. Airam Deuce Eosinophils/100 WBC (Bld) 2.1 % Normal 0.9-7.0 [facility] Comment on above: Performed By: #### C BC ####[facility] Izjfumladv[address] [place], [place] [address]Dr. Airam Tripathi Erythrocyte distribution width (RBC) [Ratio] 13.4 % Normal 11.0-15.0 [facility] Comment on above: Performed By: #### C BC ####[facility] Nezufhpfmp[address] [place], [place] [address]Dr. Airam Tripathi Hematocrit (Bld) [Volume fraction] 35.1 % Critically low 36.0-48.0 [facility] Comment on above: Performed By: #### C BC ####[facility] Pgkobpfvcv2615 [place] [phone]. Airam Tripathi Hemoglobin (Bld) [Mass/Vol] 10.9 g/dL Critically low 12.0-16.0 [facility] Comment on above: Performed By: #### C BC ####[facility] Abnxfrszjp4535 [place] [phone]. Airam Tripathi IG # 0.03 10e3/ul Normal 0.00-0.03 [facility] Comment on above: Performed By: #### C BC ####[facility] Jjkirtdlsx1594 [place] [address]Dr. Airam Tripathi IG % 0.3 % Normal 0.0-0.5 [facility] Comment on above: Performed By: #### C BC ####[facility] Jiryjicssw[address] [place], [place] [address]Dr. Airam Tripathi LYMPH # 1.3 103/ul Normal 1.2-3.8 [facility] Comment on above: Performed By: #### C BC ####[facility] Gdujqwqhac1737 [place] [address]Dr. Airam Tripathi Lymphocytes/100 WBC (Bld) 13.1 % Critically low 20.5-60.0 [facility] Comment on above: Performed By: #### C BC ####[facility] Aukndnvxgy76[address] [place] [address]Dr. Airam Tripathi MANUAL DIFF REQ NO Normal [facility] Comment on above: Performed By: #### C BC ####[facility] Zhvzamfhps0526 [place] [phone]. Airam Tripathi MCH (RBC) [Entitic mass] 30.4 pg Normal 26.7-34.0 [facility] Comment on above: Performed By: #### C BC ####[facility] Fqvquargox4312 [place] [phone]. Airam Tripathi MCHC (RBC) [Mass/Vol] 31.1 g/dL Normal 29.9-35.2 [facility] Comment on above: Performed By: #### C BC ####[facility] Slibgupaqk3931 [place] [phone]. Airam Tripathi MCV (RBC) [Entitic vol] 98.0 fL Normal 81.0-99.0 [facility] Comment on above: Performed By: #### C BC ####[facility] Ilnikdwhxy7398 [place] [phone]. Airam Tripathi MONO # 0.5 103/ul Normal 0.3-0.8 [facility] Comment on above: Performed By: #### C BC ####[facility] Dhrcydfwll4645 [place] [address]Dr. Airam Tripathi Monocytes/100 WBC (Bld) 4.7 % Normal 1.7-12.0 [facility] Comment on above: Performed By: #### C BC ####[facility] Biinsucbvn[address] [place], [place] [address]Dr. Airam Tripathi NEUT # 7.7 103/ul Critically high 1.4-6.5 [facility] Comment on above: Performed By: #### C BC ####[facility] Reotphatbi7[address] [place], [place] [address]Dr. Airam Tripathi Neutrophils/100 WBC (Bld) 79.5 % Critically high 43.0-75.0 [facility] Comment on above: Performed By: #### C BC ####[facility] Ezohwmtrkj13[address] [place], [place] [address]Dr. Airam Tripathi Platelet mean volume (Bld) [Entitic vol] 9.6 fL Normal 9.5-13.5 [facility] Comment on above: Performed By: #### C BC ####[facility] Ulcasyitjp[address] [place], [place] [id number]. Airam Tripathi PLT 268 103/ul Normal 150-450 [facility] Comment on above: Performed By: #### C BC ####[facility] Dkgbvrfged8077 [place] [phone]. Airam Deuce RBC 3.58 106/ul Critically low 4.20-5.40 [facility] Comment on above: Performed By: #### C BC ####[facility] Rffwgrdrfq9015 [place] [address]Dr. Airam Tripathi WBC 9.7 103/ul Normal 4.0-11.0 [facility] Comment on above: Performed By: #### C BC ####[facility] Dblqybenbk5305 [place] [address]Dr. Airam Tripathi PROF 14(COMP METB)on 022 Albumin [Mass/Vol] 3.6 g/dL Normal 3.4-5.0 [facility] Comment on above: Performed By: #### C MP ####[facility] Bljuglkulm7124 [place] [address]Dr. Airam Tripathi Albumin/Globulin [Mass ratio] 1.1 {ratio} Normal [facility] Comment on above: Performed By: #### C MP ####[facility] Uituirtfxn[address] [place], [place] [address]Dr. Airam Tripathi ALP [Catalytic activity/Vol] 131 U/L Critically high 46-116 [facility] Comment on above: Performed By: #### C MP ####[facility] Twwhiwhlmv4608 [place] [address]Dr. Airam Tripathi ALT [Catalytic activity/Vol] 22 U/L Normal 14-59 [facility] Comment on above: Performed By: #### C MP ####[facility] Xkdqvgugty1230 [place] [address]Dr. Airam Tripathi Anion gap [Moles/Vol] 13.3 mmol/L Normal [facility] Comment on above: Performed By: #### C MP ####[facility] Rljduzpbmc9914 [place] [address]Dr. Airam Tripathi AST [Catalytic activity/Vol] 23 U/L Normal 15-37 [facility] Comment on above: Performed By: #### C MP ####[facility] Fmrvhalgah6085 [place] [address]Dr. Airam Tripathi Bilirubin [Mass/Vol] 0.3 mg/dL Normal 0.2-1.0 [facility] Comment on above: Performed By: #### C MP ####[facility] Xupvclmocu8952 [place] [phone]. Airam Tripathi Calcium [Mass/Vol] 8.7 mg/dL Normal 8.5-10.1 [facility] Comment on above: Performed By: #### C MP ####[facility] Fbpglttsgp5689 [place] [phone]. Airam Tripathi Chloride [Moles/Vol] 104 mmol/L Normal 98-107 [facility] Comment on above: Performed By: #### C MP ####[facility] Jrdfywsqoi7399 [place] [phone]. Airam Tripathi CO2 [Moles/Vol] 22.0 mmol/L Normal 21.0-32.0 [facility] Comment on above: Performed By: #### C MP ####[facility] Cdkwhryckr7798 [place] [phone]. Airam Tripathi Creatinine [Mass/Vol] 1.20 mg/dL Critically high 0.55-1.02 [facility] Comment on above: Performed By: #### C MP ####[facility] Skbwfswdra1821 [place] [phone]. Airam Tripathi EGFR-AF CITIZEN OF [place] 56 mL/min/1.73m2 Critically low >=60 [facility] Comment on above: Performed By: #### C MP ####[facility] Bkfuhuazro2710 [place] [phone]. Airam Tripathi EGFR-NON AF CITIZEN OF [place] 46 mL/min/1.73m2 Critically low >=60 [facility] Comment on above: Performed By: #### C MP ####[facility] Wheqcfwzif5496 [place] [phone]. Airam Tripathi Globulin (S) [Mass/Vol] 3.2 g/dL Normal [facility] Comment on above: Performed By: #### C MP ####[facility] Zfhgkdpjzr7035 [place] [phone]. Airam Tripathi Glucose [Mass/Vol] 98 mg/dL Normal 74-106 [facility] Comment on above: Performed By: #### C MP ####[facility] Itczrqhpmr7439 [place] [address]Dr. Airam Tripathi Potassium [Moles/Vol] 4.3 mmol/L Normal 3.5-5.1 [facility] Comment on above: Performed By: #### C MP ####[facility] Vsgdyzpqyq6295 [place] [address]Dr. Airam Deuce Protein [Mass/Vol] 6.8 g/dL Normal 6.4-8.2 [facility] Comment on above: Performed By: #### C MP ####[facility] Xpgkezibdw60[address] [place], [place] [address]Dr. Selenaneil Tripathi Sodium [Moles/Vol] 135 mmol/L Critically low 136-145 [facility] Comment on above: Performed By: #### C MP ####[facility] Zxvrsugpxe62[address] [place], [place] [address]Dr. Airam Tripathi Urea nitrogen [Mass/Vol] 33.0 mg/dL Critically high 7.0-18.0 [facility] Comment on above: Performed By: #### C MP ####[facility] Hqoqknxnmu[address] [place], [place] [address]Dr. Selenaneil Tripathi Urea nitrogen/Creatinine [Mass ratio] 27.5 mg/mg Normal [facility] Comment on above: Performed By: #### C MP ####[facility] Cdjcwgaqmd59[address] [place], [place] [address]Dr. Airam Deuce OSMOLALITYon 02-07-2022 Osmolality [Osmolality] 299 mosm/kg Critically high 275-295 [facility] Comment on above: Performed By: #### O SMO ####[facility] Hdiraqvwjr47[address] [place], [place] [address]Dr. Airam Deuce CBC AUTO DIFFon 02-03-2022 BASO # 0.0 103/ul Normal 0.0-0.1 [facility] Comment on above: Performed By: #### C BC ####[facility] Jwswpnulzn09[address] [place], [place] [address]Dr. Selenaneil Tripathi Basophils/100 WBC (Bld) 0.4 % Normal 0.2-2.0 [facility] Comment on above: Performed By: #### C BC ####[facility] Novaaxvcwy8685 [place] [address]Dr. Airam Tripathi EO # 0.3 103/ul Normal 0.0-0.7 [facility] Comment on above: Performed By: #### C BC ####[facility] Bjclqbzvee3091 [place] [address]Dr. Airam Tripathi Eosinophils/100 WBC (Bld) 3.6 % Normal 0.9-7.0 [facility] Comment on above: Performed By: #### C BC ####[facility] Akbcivfzpr34[address] [place], [place] [address]Dr. Airam Tripathi Erythrocyte distribution width (RBC) [Ratio] 13.2 % Normal 11.0-15.0 [facility] Comment on above: Performed By: #### C BC ####[facility] Guvqpfznhe[address] [place], [place] [address]Dr. Airam Tripathi Hematocrit (Bld) [Volume fraction] 32.0 % Critically low 36.0-48.0 [facility] Comment on above: Performed By: #### C BC ####[facility] Fuxebblgot4[address] [place], [place] [address]Dr. Airam Tripathi Hemoglobin (Bld) [Mass/Vol] 9.8 g/dL Critically low 12.0-16.0 [facility] Comment on above: Performed By: #### C BC ####[facility] V[address]htldnkq[address] [place], [place] [address]Dr. Airam Tripathi IG # 0.03 10e3/ul Normal 0.00-0.03 [facility] Comment on above: Performed By: #### C BC ####[facility] Eugugpyehs0864[address] [place], [place] [address]Dr. Airam Tripathi IG % 0.4 % Normal 0.0-0.5 [facility] Comment on above: Performed By: #### C BC ####[facility] Eweaczcgzd678[address] [place], [place] [address]Dr. Selenaneil Tripathi LYMPH # 1.7 103/ul Normal 1.2-3.8 [facility] Comment on above: Performed By: #### C BC ####[facility] Gdkudmhenn2885 [place] [phone]. Selenaneil Tripathi Lymphocytes/100 WBC (Bld) 24.8 % Normal 20.5-60.0 [facility] Comment on above: Performed By: #### C BC ####[facility] Sybnhcrzqs0938 [place] [phone]. Airam Tripathi MANUAL DIFF REQ NO Normal [facility] Comment on above: Performed By: #### C BC ####[facility] Suzhofmkww1710 [place] [phone]. Selenaneil Tripathi MCH (RBC) [Entitic mass] 29.6 pg Normal 26.7-34.0 [facility] Comment on above: Performed By: #### C BC ####[facility] Nbwfakaprq02[address] [place], [place] [address]Dr. Airam Tripathi MCHC (RBC) [Mass/Vol] 30.6 g/dL Normal 29.9-35.2 [facility] Comment on above: Performed By: #### C BC ####[facility] Yzymilglcp[address] [place], [place] [address]Dr. Airam Tripathi MCV (RBC) [Entitic vol] 96.7 fL Normal 81.0-99.0 [facility] Comment on above: Performed By: #### C BC ####[facility] Dqtbbclami[address] [place], [place] [address]Dr. Airam Tripathi MONO # 0.4 103/ul Normal 0.3-0.8 [facility] Comment on above: Performed By: #### C BC ####[facility] Yonlwahguz40[address] [place], [place] [address]Dr. Airam Tripathi Monocytes/100 WBC (Bld) 6.3 % Normal 1.7-12.0 [facility] Comment on above: Performed By: #### C BC ####[facility] Ipjdmnhdsn[address] [place], [place] [address]Dr. Airam Tripathi NEUT # 4.5 103/ul Normal 1.4-6.5 [facility] Comment on above: Performed By: #### C BC ####[facility] Ommqxwpkfv1576 [place] [phone]. Airam Tripathi Neutrophils/100 WBC (Bld) 64.5 % Normal 43.0-75.0 [facility] Comment on above: Performed By: #### C BC ####[facility] Lvksapdutg7316 [place] [phone]. Airam Tripathi Platelet mean volume (Bld) [Entitic vol] 9.3 fL Critically low 9.5-13.5 [facility] Comment on above: Performed By: #### C BC ####[facility] Vddazbcess8065 [place] [address]Dr. Airam Tripathi PLT 243 103/ul Normal 150-450 [facility] Comment on above: Performed By: #### C BC ####[facility] Efpjkhagci8269 [place] [address]Dr. Ariam Tripathi RBC 3.31 106/ul Critically low 4.20-5.40 [facility] Comment on above: Performed By: #### C BC ####[facility] Jjhvfkplzj3266 [place] [phone]. Airam Tripathi WBC 7.0 103/ul Normal 4.0-11.0 [facility] Comment on above: Performed By: #### C BC ####[facility] Wwujaxemrh8585 [place] [address]Dr. Airam Tripathi PROF 14(COMP METB)on 022 Albumin [Mass/Vol] 3.3 g/dL Critically low 3.4-5.0 [facility] Comment on above: Performed By: #### C MP ####[facility] Pookhvcbpu2478 [place] [address]Dr. Airam Tripathi Albumin/Globulin [Mass ratio] 1.1 {ratio} Normal [facility] Comment on above: Performed By: #### C MP ####[facility] Aganaswbly8928 [place] [phone]. Airam Tripathi ALP [Catalytic activity/Vol] 126 U/L Critically high 46-116 [facility] Comment on above: Performed By: #### C MP ####[facility] Mdtkgeobfh9373 [place] [phone]. Airam Tripathi ALT [Catalytic activity/Vol] 21 U/L Normal 14-59 [facility] Comment on above: Performed By: #### C MP ####[facility] Ocjjhabelf9606 [place] [phone]. Airam Tripathi Anion gap [Moles/Vol] 11.8 mmol/L Normal Th e [facility] Comment on above: Performed By: #### C MP ####[facility] Nvpgyeifnq7780 [place] [address]Dr. Airam Tripathi AST [Catalytic activity/Vol] 22 U/L Normal 15-37 [facility] Comment on above: Performed By: #### C MP ####[facility] Qyxgbhypiy[address] [place], [place] [address]Dr. Airam Tripathi Bilirubin [Mass/Vol] 0.3 mg/dL Normal 0.2-1.0 [facility] Comment on above: Performed By: #### C MP ####[facility] [address]twkpegryx[address] [place], [place] [address]Dr. Airam Tripathi Calcium [Mass/Vol] 8.7 mg/dL Normal 8.5-10.1 [facility] Comment on above: Performed By: #### C MP ####[facility] Xibdvbkxvz7[address] [place], [place] [address]Dr. Airam Tripathi Chloride [Moles/Vol] 102 mmol/L Normal 98-107 [facility] Comment on above: Performed By: #### C MP ####[facility] Cvjklonhao88[address] [place], [place] [address]Dr. Airam Tripathi CO2 [Moles/Vol] 25.5 mmol/L Normal 21.0-32.0 [facility] Comment on above: Performed By: #### C MP ####[facility] Qfhdhnbhnc[address] [place], [place] [address]Dr. Airam Deuce Creatinine [Mass/Vol] 1.43 mg/dL Critically high 0.55-1.02 [facility] Comment on above: Performed By: #### C MP ####[facility] Qvtnfyfasf7535 [place] [phone]. Airam Tripathi EGFR-AF CITIZEN OF [place] 46 mL/min/1.73m2 Critically low >=60 [facility] Comment on above: Performed By: #### C MP ####[facility] Tgxvtykwhk6222 [place] [phone]. Airam Tripathi EGFR-NON AF CITIZEN OF [place] 38 mL/min/1.73m2 Critically low >=60 [facility] Comment on above: Performed By: #### C MP ####[facility] Wctxmkhzic4332 [place] [address]Dr. Airam Deuce Globulin (S) [Mass/Vol] 2.9 g/dL Normal [facility] Comment on above: Performed By: #### C MP ####[facility] Rjbxtnmafo3838 [place] [address]Dr. Selenaneil Tripathi Glucose [Mass/Vol] 83 mg/dL Normal 74-106 [facility] Comment on above: Performed By: #### C MP ####[facility] Nkfkeszxgw8012 [place] [address]Dr. Airam Deuce Potassium [Moles/Vol] 4.3 mmol/L Normal 3.5-5.1 [facility] Comment on above: Performed By: #### C MP ####[facility] Xsqxyceyzy3051 [place] [address]Dr. Selenaneil Deuce Protein [Mass/Vol] 6.2 g/dL Critically low 6.4-8.2 [facility] Comment on above: Performed By: #### C MP ####[facility] Wmvogetafq7199 [place] [address]Dr. Selenaneil Tripathi Sodium [Moles/Vol] 135 mmol/L Critically low 136-145 [facility] Comment on above: Performed By: #### C MP ####[facility] Pssmaicruv7280 [place] [address]Dr. Airam Deuce Urea nitrogen [Mass/Vol] 39.0 mg/dL Critically high 7.0-18.0 [facility] Comment on above: Performed By: #### C MP ####[facility] Ldyzlkboeb3466 [place] [phone]. Airam Tripathi Urea nitrogen/Creatinine [Mass ratio] 27.3 mg/mg Normal [facility] Comment on above: Performed By: #### C MP ####[facility] Elghqpopue2834 [place] [phone]. Airam Tripathi OSMOLALITYon 02-02-2022 Osmolality [Osmolality] 292 mosm/kg Normal 275-295 [facility] Comment on above: Performed By: #### O SMO ####[facility] Fzqolanzhi[address] [place], [place] [address]Dr. Airam Deuce CBC AUTO DIFFon 01-27-2022 BASO # 0.0 103/ul Normal 0.0-0.1 [facility] Comment on above: Performed By: #### C BC ####[facility] Ymomyvnlzd75[address] [place], [place] [address]Dr. Airam Tripathi Basophils/100 WBC (Bld) 0.4 % Normal 0.2-2.0 [facility] Comment on above: Performed By: #### C BC ####[facility] Vjbmwztcvl[address] [place], [place] [address]Dr. Airam Deuce EO # 0.2 103/ul Normal 0.0-0.7 [facility] Comment on above: Performed By: #### C BC ####[facility] Vkerjuvktc23[address] [place], [place] [address]Dr. Airam Tripathi Eosinophils/100 WBC (Bld) 3.4 % Normal 0.9-7.0 [facility] Comment on above: Performed By: #### C BC ####[facility] Tmsffvnyxb7774[address] [place], [place] [address]Dr. Airam Tripathi Erythrocyte distribution width (RBC) [Ratio] 13.1 % Normal 11.0-15.0 [facility] Comment on above: Performed By: #### C BC ####[facility] Gpwdljlkkc225[address] [place], [place] [address]Dr. Airam Tripathi Hematocrit (Bld) [Volume fraction] 31.6 % Critically low 36.0-48.0 [facility] Comment on above: Performed By: #### C BC ####[facility] Dzdjmkahld6510 [place] [address]Dr. Airam Tripathi Hemoglobin (Bld) [Mass/Vol] 9.9 g/dL Critically low 12.0-16.0 [facility] Comment on above: Performed By: #### C BC ####[facility] Rozuegqipz2667 [place] [address]Dr. Selenaneil Tripathi IG # 0.02 10e3/ul Normal 0.00-0.03 [facility] Comment on above: Performed By: #### C BC ####[facility] Cjuxhaumty89[address] [place], [place] [address]Dr. Airam Tripathi IG % 0.4 % Normal 0.0-0.5 [facility] Comment on above: Performed By: #### C BC ####[facility] Iodswdtxhl06[address] [place], [place] [address]Dr. Airam Tripathi LYMPH # 1.0 103/ul Critically low 1.2-3.8 [facility] Comment on above: Performed By: #### C BC ####[facility] Cpobaonksq97[address] [place], [place] [address]Dr. Selenaneil Tripathi Lymphocytes/100 WBC (Bld) 17.4 % Critically low 20.5-60.0 [facility] Comment on above: Performed By: #### C BC ####[facility] Mdwxzxgoxj0[address] [place], [place] [address]Dr. Airam Tripathi MANUAL DIFF REQ NO Normal [facility] Comment on above: Performed By: #### C BC ####[facility] Zlzezuiady80[address] [place], [place] [address]Dr. Airam Tripathi MCH (RBC) [Entitic mass] 30.1 pg Normal 26.7-34.0 [facility] Comment on above: Performed By: #### C BC ####[facility] Foxokpjril8108[address] [place], [place] [address]Dr. Airam Tripathi MCHC (RBC) [Mass/Vol] 31.3 g/dL Normal 29.9-35.2 [facility] Comment on above: Performed By: #### C BC ####[facility] Kfmdkyegwd3295 [place] [phone]. Airam Tripathi MCV (RBC) [Entitic vol] 96.0 fL Normal 81.0-99.0 [facility] Comment on above: Performed By: #### C BC ####[facility] Embzugdawo1596 [place] [phone]. Airam Tripathi MONO # 0.5 103/ul Normal 0.3-0.8 [facility] Comment on above: Performed By: #### C BC ####[facility] Kdcihuuopy1037 [place] [address]Dr. Airam Deuce Monocytes/100 WBC (Bld) 8.6 % Normal 1.7-12.0 [facility] Comment on above: Performed By: #### C BC ####[facility] Ermdvbaaot14[address] [place], [place] [address]Dr. Airam Tripathi NEUT # 3.9 103/ul Normal 1.4-6.5 [facility] Comment on above: Performed By: #### C BC ####[facility] Dsapleluzt47[address] [place], [place] [address]Dr. Airam Deuce Neutrophils/100 WBC (Bld) 69.8 % Normal 43.0-75.0 [facility] Comment on above: Performed By: #### C BC ####[facility] Tqbwpfwwni[address] [place], [place] [address]Dr. Airam Deuce Platelet mean volume (Bld) [Entitic vol] 9.6 fL Normal 9.5-13.5 [facility] Comment on above: Performed By: #### C BC ####[facility] X[address]wbclxxpi[address] [place], [place] [address]Dr. Airam Deuce PLT 228 103/ul Normal 150-450 [facility] Comment on above: Performed By: #### C BC ####[facility] Geywddegch7497 [place] [phone]. Ariam Tripathi RBC 3.29 106/ul Critically low 4.20-5.40 [facility] Comment on above: Performed By: #### C BC ####[facility] Ohxpvyuxjz3593 [place] [address]Dr. Airam Tripathi WBC 5.6 103/ul Normal 4.0-11.0 [facility] Comment on above: Performed By: #### C BC ####[facility] Ffevnokwux0104 [place] [address]Dr. Airam Tripathi PROF 14(COMP METB)on 022 Albumin [Mass/Vol] 3.1 g/dL Critically low 3.4-5.0 [facility] Comment on above: Performed By: #### C MP ####[facility] Frlgiflnpo9871 [place] [address]Dr. Airam Tripathi Albumin/Globulin [Mass ratio] 1.0 {ratio} Normal [facility] Comment on above: Performed By: #### C MP ####[facility] Slhjpzufyi[address] [place], [place] [address]Dr. Airam Triapthi ALP [Catalytic activity/Vol] 131 U/L Critically high 46-116 [facility] Comment on above: Performed By: #### C MP ####[facility] Gwsyelozuj88[address] [place], [place] [address]Dr. Airam Tripathi ALT [Catalytic activity/Vol] 19 U/L Normal 14-59 [facility] Comment on above: Performed By: #### C MP ####[facility] [address]vnmjznisr[address] [place], [place] [address]Dr. Airam Tripathi Anion gap [Moles/Vol] 12.9 mmol/L Normal [facility] Comment on above: Performed By: #### C MP ####[facility] Vusghmojkg804[address] [place], [place] [address]Dr. Airam Tripathi AST [Catalytic activity/Vol] 21 U/L Normal 15-37 [facility] Comment on above: Performed By: #### C MP ####[facility] [address]suttzcmxy0[address] [place], [place] [address]Dr. Airam Tripathi Bilirubin [Mass/Vol] 0.2 mg/dL Normal 0.2-1.0 [facility] Comment on above: Performed By: #### C MP ####[facility] Owunqiqboa0874 [place] [phone]. Airam Tripathi Calcium [Mass/Vol] 8.4 mg/dL Critically low 8.5-10.1 [facility] Comment on above: Performed By: #### C MP ####[facility] Tngflllogv6732 [place] [phone]. Airam Tripathi Chloride [Moles/Vol] 103 mmol/L Normal 98-107 [facility] Comment on above: Performed By: #### C MP ####[facility] Kmxbddzjkd9[address] [place] [address]Dr. Airam Tripathi CO2 [Moles/Vol] 23.7 mmol/L Normal 21.0-32.0 [facility] Comment on above: Performed By: #### C MP ####[facility] Ofmpikosyo[address] [place], [place] [address]Dr. Airam Tripathi Creatinine [Mass/Vol] 1.37 mg/dL Critically high 0.55-1.02 [facility] Comment on above: Performed By: #### C MP ####[facility] Rhvrsitioe[address] [place], [place] [address]Dr. Airam Tripathi EGFR-AF CITIZEN OF [place] 48 mL/min/1.73m2 Critically low >=60 [facility] Comment on above: Performed By: #### C MP ####[facility] Sdczufdfkd3[address] [place], [place] [address]Dr. Airam Deuce EGFR-NON AF CITIZEN OF [place] 39 mL/min/1.73m2 Critically low >=60 [facility] Comment on above: Performed By: #### C MP ####[facility] Mvpiagjfbo[address] [place], [place] [address]Dr. Airam Tripathi Globulin (S) [Mass/Vol] 3.1 g/dL Normal [facility] Comment on above: Performed By: #### C MP ####[facility] Yjqltpmnlt8[address] [place], [place] [address]Dr. Airam Deuce Glucose [Mass/Vol] 88 mg/dL Normal 74-106 [facility] Comment on above: Performed By: #### C MP ####[facility] Pyjvuzrplb280[address] [place] [address]Dr. Airam Tripathi Potassium [Moles/Vol] 4.6 mmol/L Normal 3.5-5.1 [facility] Comment on above: Performed By: #### C MP ####[facility] Vzuksisogq9048 [place] [address]Dr. Airam Tripathi Protein [Mass/Vol] 6.2 g/dL Critically low 6.4-8.2 [facility] Comment on above: Performed By: #### C MP ####[facility] Rattqksxxo0726[address] [place], [place] [address]Dr. Airam Tripathi Sodium [Moles/Vol] 135 mmol/L Critically low 136-145 [facility] Comment on above: Performed By: #### C MP ####[facility] Uidpuvcuft8126[address] [place], [place] [address]Dr. Airam Deuce Urea nitrogen [Mass/Vol] 34.0 mg/dL Critically high 7.0-18.0 [facility] Comment on above: Performed By: #### C MP ####[facility] Xmosbknhqx8174[address] [place], [place] [address]Dr. Airam Tripathi Urea nitrogen/Creatinine [Mass ratio] 24.8 mg/mg Normal [facility] Comment on above: Performed By: #### C MP ####[facility] Qjkejefxry599[address] [place], [place] [address]Dr. Airam Deuce OSMOLALITYon 01-21-2022 Osmolality [Osmolality] 276 mosm/kg Normal 275-295 [facility] Comment on above: Performed By: #### O SMO ####[facility] Omnntotyna8[address] [place], [place] [address]Dr. Airam Tripathi MRI CSPINE WO CONon 01-21-20 22 MRI CSPINE WO CON Normal [facility] CBC AUTO DIFFon 01-19-2022 BASO # 0.0 103/ul Normal 0.0-0.1 [facility] Comment on above: Performed By: #### C BC ####[facility] Ypzhmsefds64[address] [place], [place] [address]Dr. Airam Tripathi Basophils/100 WBC (Bld) 0.2 % Normal 0.2-2.0 [facility] Comment on above: Performed By: #### C BC ####[facility] Amuikcdzsg[address] [place] [address]Dr. Airam Tripathi EO # 0.2 103/ul Normal 0.0-0.7 [facility] Comment on above: Performed By: #### C BC ####[facility] Bxzuinrwbn4811 [place] [address]Dr. Airam Tripathi Eosinophils/100 WBC (Bld) 2.1 % Normal 0.9-7.0 [facility] Comment on above: Performed By: #### C BC ####[facility] Rkbgguvstg9238 [place] [address]Dr. Airam Tripathi Erythrocyte distribution width (RBC) [Ratio] 12.7 % Normal 11.0-15.0 [facility] Comment on above: Performed By: #### C BC ####[facility] Skosqhdeey4360 [place] [address]Dr. Airam Tripathi Hematocrit (Bld) [Volume fraction] 32.2 % Critically low 36.0-48.0 [facility] Comment on above: Performed By: #### C BC ####[facility] Nheyaavcjc37[address] [place], [place] [address]Dr. Airam Tripathi Hemoglobin (Bld) [Mass/Vol] 10.4 g/dL Critically low 12.0-16.0 [facility] Comment on above: Performed By: #### C BC ####[facility] Ymcmnlzvvj37[address] [place] [address]Dr. Airam Tripathi IG # 0.03 10e3/ul Normal 0.00-0.03 [facility] Comment on above: Performed By: #### C BC ####[facility] Pxrqsoxgua3906 [place] [address]Dr. Airam Tripathi IG % 0.3 % Normal 0.0-0.5 [facility] Comment on above: Performed By: #### C BC ####[facility] Idqcuvyblh1475 [place] [id number]. Airam Deuce LYMPH # 1.4 103/ul Normal 1.2-3.8 [facility] Comment on above: Performed By: #### C BC ####[facility] Qcsgcflali6565 [place] [address]Dr. Airam Deuce Lymphocytes/100 WBC (Bld) 16.0 % Critically low 20.5-60.0 [facility] Comment on above: Performed By: #### C BC ####[facility] Ujvtzzpoca4619 [place] [address]Dr. Selenaneil Tripathi MANUAL DIFF REQ NO Normal [facility] Comment on above: Performed By: #### C BC ####[facility] Zxjjwswlfy6375 [place] [address]Dr. Airam Deuce MCH (RBC) [Entitic mass] 30.0 pg Normal 26.7-34.0 [facility] Comment on above: Performed By: #### C BC ####[facility] Hiqzqbmunp74[address] [place], [place] [address]Dr. Airam Deuce MCHC (RBC) [Mass/Vol] 32.3 g/dL Normal 29.9-35.2 [facility] Comment on above: Performed By: #### C BC ####[facility] Qekahnigmo3476 [place] [address]Dr. Airam Deuce MCV (RBC) [Entitic vol] 92.8 fL Normal 81.0-99.0 [facility] Comment on above: Performed By: #### C BC ####[facility] Mqcjywwmgf8395 [place] [address]Dr. Airam Deuce MONO # 0.4 103/ul Normal 0.3-0.8 [facility] Comment on above: Performed By: #### C BC ####[facility] Qolfrcndtp9517[address] [place], [place] [address]Dr. Airam Deuce Monocytes/100 WBC (Bld) 4.9 % Normal 1.7-12.0 [facility] Comment on above: Performed By: #### C BC ####[facility] Xyqvsnvkoh4709 [place] [phone]. Airam Tripathi NEUT # 6.6 103/ul Critically high 1.4-6.5 [facility] Comment on above: Performed By: #### C BC ####[facility] Znhojtwdjq8080 [place] [address]Dr. Airam Tripathi Neutrophils/100 WBC (Bld) 76.5 % Critically high 43.0-75.0 [facility] Comment on above: Performed By: #### C BC ####[facility] Fhqeoiarbx2665 [place] [address]Dr. Airam Tripathi Platelet mean volume (Bld) [Entitic vol] 9.8 fL Normal 9.5-13.5 [facility] Comment on above: Performed By: #### C BC ####[facility] Xziqtjhepk9[address] [place], [place] [address]Dr. Airam Tripathi PLT 262 103/ul Normal 150-450 [facility] Comment on above: Performed By: #### C BC ####[facility] Zkildmpaif4086[address] [place], [place] [address]Dr. Airam Deuce RBC 3.47 106/ul Critically low 4.20-5.40 [facility] Comment on above: Performed By: #### C BC ####[facility] Iefeenwydm13[address] [place], [place] [address]Dr. Airam Deuce WBC 8.7 103/ul Normal 4.0-11.0 [facility] Comment on above: Performed By: #### C BC ####[facility] Ouectuyiop4376[address] [place], [place] [address]Dr. Airam Tripathi PROF 14(COMP METB)on 022 Albumin [Mass/Vol] 3.3 g/dL Critically low 3.4-5.0 [facility] Comment on above: Performed By: #### C MP ####[facility] Mwgpluzaar83[address] [place] [address]Dr. Airam Tripathi Albumin/Globulin [Mass ratio] 1.1 {ratio} Normal [facility] Comment on above: Performed By: #### C MP ####[facility] Tpqfuumnac0912 [place] [address]Dr. Airam Tripathi ALP [Catalytic activity/Vol] 114 U/L Normal 46-116 [facility] Comment on above: Performed By: #### C MP ####[facility] Ldapfpxumv7976 [place] [address]Dr. Airam Tripathi ALT [Catalytic activity/Vol] 20 U/L Normal 14-59 [facility] Comment on above: Performed By: #### C MP ####[facility] Wdyvyfecxq5996[address] [place], [place] [address]Dr. Airam Tripathi Anion gap [Moles/Vol] 14.7 mmol/L Normal Th e [facility] Comment on above: Performed By: #### C MP ####[facility] Aiarnzqsjo733[address] [place], [place] [address]Dr. Airam Tripathi AST [Catalytic activity/Vol] 22 U/L Normal 15-37 [facility] Comment on above: Performed By: #### C MP ####[facility] Nwsvlelrbm2735[address] [place], [place] [address]Dr. Airam Tripathi Bilirubin [Mass/Vol] 0.3 mg/dL Normal 0.2-1.0 [facility] Comment on above: Performed By: #### C MP ####[facility] Cjxwdfsuci53[address] [place], [place] [address]Dr. Airam Tripathi Calcium [Mass/Vol] 8.8 mg/dL Normal 8.5-10.1 [facility] Comment on above: Performed By: #### C MP ####[facility] Kiobfnbsti2865[address] [place], [place] [address]Dr. Airam Deuce Chloride [Moles/Vol] 97 mmol/L Critically low 98-107 [facility] Comment on above: Performed By: #### C MP ####[facility] Aayhsyxukv069424 [address] [place], [place] [address]Dr. Airam Deuce CO2 [Moles/Vol] 24.5 mmol/L Normal 21.0-32.0 [facility] Comment on above: Performed By: #### C MP ####[facility] Hmymbidxhd1215[address] [place], [place] [address]Dr. Selenaneil Deuce Creatinine [Mass/Vol] 1.28 mg/dL Critically high 0.55-1.02 [facility] Comment on above: Performed By: #### C MP ####[facility] Nsooardtux9[address] [place] [address]Dr. Selenaneil Deuce EGFR-AF CITIZEN OF [place] 52 mL/min/1.73m2 Critically low >=60 [facility] Comment on above: Performed By: #### C MP ####[facility] Lvqnklsdym2676 [place] [address]Dr. Selenaneil Deuce EGFR-NON AF CITIZEN OF [place] 43 mL/min/1.73m2 Critically low >=60 [facility] Comment on above: Performed By: #### C MP ####[facility] Oppmnowkgq039[address] [place], [place] [address]Dr. Airam Tripathi Globulin (S) [Mass/Vol] 3.1 g/dL Normal [facility] Comment on above: Performed By: #### C MP ####[facility] Eheajlxclf3815[address] [place], [place] [address]Dr. Airam Tripathi Glucose [Mass/Vol] 87 mg/dL Normal 74-106 [facility] Comment on above: Performed By: #### C MP ####[facility] Zhargnjfut509[address] [place], [place] [address]Dr. Airam Tripathi Potassium [Moles/Vol] 4.2 mmol/L Normal 3.5-5.1 [facility] Comment on above: Performed By: #### C MP ####[facility] Nexxpjzten1994[address] [place], [place] [address]Dr. Airam Tripathi Protein [Mass/Vol] 6.4 g/dL Normal 6.4-8.2 [facility] Comment on above: Performed By: #### C MP ####[facility] Rbgsbqksff8749[address] [place], [place] [address]Dr. Airam Tripathi Sodium [Moles/Vol] 132 mmol/L Critically low 136-145 Th [facility] Comment on above: Performed By: #### C MP ####[facility] Adjpafybus0387[address] [place], [place] [address]Dr. Airam Tripathi Urea nitrogen [Mass/Vol] 36.0 mg/dL Critically high 7.0-18.0 [facility] Comment on above: Performed By: #### C MP ####[facility] Rqogiwtfgo895824 [address] [place], [place] [address]Dr. Airam Tripathi Urea nitrogen/Creatinine [Mass ratio] 28.1 mg/mg Normal [facility] Comment on above: Performed By: #### C MP ####[facility] Fqqmctqdns2282[address] [place], [place] [address]Dr. Airam Tripathi XR DEXA BONE DENSITYon 01-19 XR DEXA BONE DENSITY Normal [facility] OSMOLALITYon 01-13-2022 Osmolality [Osmolality] 277 mosm/kg Normal 275-295 [facility] Comment on above: Performed By: #### O SMO ####[facility] Xyeyibsydr5868[address] [place], [place] [address]Dr. Airam Deuce CBC AUTO DIFFon 01-11-2022 BASO # 0.0 103/ul Normal 0.0-0.1 [facility] Comment on above: Performed By: #### C BC ####[facility] Pbfourhjvy467424 [address] [place], [place] [address]Dr. Airam Deuce Basophils/100 WBC (Bld) 0.5 % Normal 0.2-2.0 [facility] Comment on above: Performed By: #### C BC ####[facility] Ybczvycchp[address] [place], [place] [address]Dr. Airam Deuce EO # 0.2 103/ul Normal 0.0-0.7 [facility] Comment on above: Performed By: #### C BC ####[facility] Toriiqbbsm5107[address] [place], [place] [address]Dr. Selenaneil Tripathi Eosinophils/100 WBC (Bld) 3.1 % Normal 0.9-7.0 [facility] Comment on above: Performed By: #### C BC ####[facility] Pjdzwrxbjr417[address] [place], [place] [address]Dr. Airam Deuce Erythrocyte distribution width (RBC) [Ratio] 12.5 % Normal 11.0-15.0 [facility] Comment on above: Performed By: #### C BC ####[facility] Wgozfrspos8728 [place] [address]DrKianna Airam Tripathi Hematocrit (Bld) [Volume fraction] 34.4 % Critically low 36.0-48.0 [facility] Comment on above: Performed By: #### C BC ####[facility] Eyrvklmkkp1155 [place] [address]DrKianna Tripathi Hemoglobin (Bld) [Mass/Vol] 11.0 g/dL Critically low 12.0-16.0 [facility] Comment on above: Performed By: #### C BC ####[facility] Lpokiphlmu8076[address] [place], [place] [address]DrKianna Tripathi IG # 0.03 10e3/ul Normal 0.00-0.03 [facility] Comment on above: Performed By: #### C BC ####[facility] Oiaqdczqzh1379[address] [place], [place] [address]Dr. Airam Tripathi IG % 0.5 % Normal 0.0-0.5 [facility] Comment on above: Performed By: #### C BC ####[facility] Zjaofwxgci3562[address] [place], [place] [address]DrKianna Tripathi LYMPH # 1.6 103/ul Normal 1.2-3.8 [facility] Comment on above: Performed By: #### C BC ####[facility] Ipowaesrdw1917[address] [place], [place] [address]DrKianna Tripathi Lymphocytes/100 WBC (Bld) 28.0 % Normal 20.5-60.0 [facility] Comment on above: Performed By: #### C BC ####[facility] Imgnedhsyy544[address] [place], [place] [address]DrKianna Tripathi MANUAL DIFF REQ NO Normal [facility] Comment on above: Performed By: #### C BC ####[facility] Supjdqiqri0140[address] [place], [place] [address]DrKianna Tripathi MCH (RBC) [Entitic mass] 30.1 pg Normal 26.7-34.0 [facility] Comment on above: Performed By: #### C BC ####[facility] Ullllqaftv3382 [place] [phone]. Airam Tripathi MCHC (RBC) [Mass/Vol] 32.0 g/dL Normal 29.9-35.2 [facility] Comment on above: Performed By: #### C BC ####[facility] Indpqjzijg0820 [place] [phone] Tripathi MCV (RBC) [Entitic vol] 94.0 fL Normal 81.0-99.0 [facility] Comment on above: Performed By: #### C BC ####[facility] Liqmugjmbb026[address] [place], [place] [address]DrKianna Tripathi MONO # 0.4 103/ul Normal 0.3-0.8 [facility] Comment on above: Performed By: #### C BC ####[facility] Slthnibfig0884[address] [place], [place] [address]DrKianna Tripathi Monocytes/100 WBC (Bld) 7.5 % Normal 1.7-12.0 [facility] Comment on above: Performed By: #### C BC ####[facility] Ltwokybxlt5239[address] [place], [place] [address]Dr. Airam Tripathi NEUT # 3.5 103/ul Normal 1.4-6.5 [facility] Comment on above: Performed By: #### C BC ####[facility] Ombnllszyk6765[address] [place], [place] [address]DrKianna Tripathi Neutrophils/100 WBC (Bld) 60.4 % Normal 43.0-75.0 [facility] Comment on above: Performed By: #### C BC ####[facility] Ppkljspwmc[address] [place], [place] [address]DrKianna Tripathi Platelet mean volume (Bld) [Entitic vol] 10.0 fL Normal 9.5-13.5 [facility] Comment on above: Performed By: #### C BC ####[facility] Uwbxafoiep01[address] [place], [place] [address]DrKianna Tripathi PLT 300 103/ul Normal 150-450 [facility] Comment on above: Performed By: #### C BC ####[facility] Diotuwfhxm6951 [place] [phone]. Airam Tripathi RBC 3.66 106/ul Critically low 4.20-5.40 [facility] Comment on above: Performed By: #### C BC ####[facility] Cmdmmyomoq7210 [place] [phone]. Airam Tripathi WBC 5.7 103/ul Normal 4.0-11.0 [facility] Comment on above: Performed By: #### C BC ####[facility] Ucotvkhyak[address] [place] [address]Dr. Airam Tripathi PROF 14(COMP METB)on 022 Albumin [Mass/Vol] 3.3 g/dL Critically low 3.4-5.0 [facility] Comment on above: Performed By: #### C MP ####[facility] Qgodeegdik4874[address] [place], [place] [address]Dr. Airam Tripathi Albumin/Globulin [Mass ratio] 1.0 {ratio} Normal [facility] Comment on above: Performed By: #### C MP ####[facility] Xpiwqidvqu7599[address] [place], [place] [address]Dr. Airam Tripathi ALP [Catalytic activity/Vol] 138 U/L Critically high 46-116 [facility] Comment on above: Performed By: #### C MP ####[facility] Wtsiqmjwks3482[address] [place], [place] [address]Dr. Airam Tripathi ALT [Catalytic activity/Vol] 25 U/L Normal 14-59 [facility] Comment on above: Performed By: #### C MP ####[facility] Xxtkmksoyy556[address] [place], [place] [address]Dr. Airam Tripathi Anion gap [Moles/Vol] 14.0 mmol/L Normal [facility] Comment on above: Performed By: #### C MP ####[facility] Navarcrjju676[address] [place], [place] [address]Dr. Airam Tripathi AST [Catalytic activity/Vol] 19 U/L Normal 15-37 [facility] Comment on above: Performed By: #### C MP ####[facility] Uplksmxpsg6480 [place] [address]Dr. Airam Trpiathi Bilirubin [Mass/Vol] 0.3 mg/dL Normal 0.2-1.0 [facility] Comment on above: Performed By: #### C MP ####[facility] Rafaxmzrvt4835[address] [place], [place] [address]Dr. Airam Tripathi Calcium [Mass/Vol] 8.7 mg/dL Normal 8.5-10.1 [facility] Comment on above: Performed By: #### C MP ####[facility] Ailjzjulxr5438[address] [place], [place] [address]Dr. Airam Tripathi Chloride [Moles/Vol] 99 mmol/L Normal 98-107 [facility] Comment on above: Performed By: #### C MP ####[facility] Uvtzutnhll6794[address] [place], [place] [address]Dr. Airam Tripathi CO2 [Moles/Vol] 25.4 mmol/L Normal 21.0-32.0 [facility] Comment on above: Performed By: #### C MP ####[facility] Hoyfwgkcxk3475[address] [place], [place] [address]Dr. Airam Tripathi Creatinine [Mass/Vol] 1.22 mg/dL Critically high 0.55-1.02 [facility] Comment on above: Performed By: #### C MP ####[facility] Deshsutpts235[address] [place], [place] [address]Dr. Airam Tripathi EGFR-AF CITIZEN OF [place] 55 mL/min/1.73m2 Critically low >=60 [facility] Comment on above: Performed By: #### C MP ####[facility] Cbktosljho24[address] [place], [place] [address]Dr. Airam Tripathi EGFR-NON AF CITIZEN OF [place] 45 mL/min/1.73m2 Critically low >=60 [facility] Comment on above: Performed By: #### C MP ####[facility] Yxjccdusir224[address] [place], [place] [address]Dr. Airam Tripathi Globulin (S) [Mass/Vol] 3.2 g/dL Normal [facility] Comment on above: Performed By: #### C MP ####[facility] Nskwzhavcy6893 [place] [phone]. Airam Tripathi Glucose [Mass/Vol] 111 mg/dL Critically high 74-106 T [facility] Comment on above: Performed By: #### C MP ####[facility] Nxqjqrrxpw0273 [place], [place] [address]As. Airam Tripathi Potassium [Moles/Vol] 4.4 mmol/L Normal 3.5-5.1 [facility] Comment on above: Performed By: #### C MP ####[facility] Lvlucupqow2752 [place] [phone]. Airam Tripathi Protein [Mass/Vol] 6.5 g/dL Normal 6.4-8.2 [facility] Comment on above: Performed By: #### C MP ####[facility] Pumfqlschm2242 [place] [address]Dr. Airam Tripathi Sodium [Moles/Vol] 134 mmol/L Critically low 136-145 [facility] Comment on above: Performed By: #### C MP ####[facility] Fumyyemhyn5713 [place] [phone]. Airam Tripathi Urea nitrogen [Mass/Vol] 27.0 mg/dL Critically high 7.0-18.0 [facility] Comment on above: Performed By: #### C MP ####[facility] Oiychlriqi9657 [place] [address]Dr. Airam Tripathi Urea nitrogen/Creatinine [Mass ratio] 22.1 mg/mg Normal [facility] Comment on above: Performed By: #### C MP ####[facility] Zapcdhofez1278 [place] [phone]. Airam Deuce CT CERVICAL SPINE WITHOUT CO NTRASTon 01-10-2022 CT CERVICAL SPINE WITHOUT CONTRAST [facility] Department of Radiology [address] [place] [id number] Patient Name: MABEL MOSER : 1960 Sex: F Age: Race: White Pt. Location: 29 Patient Status: D Ordered Date: 08/17/2021 10:00:00 AM Completed Date: 01/10/2022 10:24 AM Requesting Provider: ROBERT JOHNSTON Attending Provider: ROBERT JOHNSTON Report Copy To: ANGLE SANTANA Signs & Symptoms: M54.12 Radiculopathy, cervical region I10 History: [place] seeing Dr. Johnston after Comments: Exam: CT [...] achievable. Electronically signed: Ayleen Ny. Transcribed by: [email or web address], User Resident: Electronically Signed by: AYLEEN [place] @ 01/12/2022 12:32 PM Normal [facility] OSMOLALITYon 01-07-2022 Osmolality [Osmolality] 286 mosm/kg Normal 275-295 [facility] Comment on above: Performed By: #### O SMO ####[facility] U[address]vzebkru[address] [place], [place] [address]Dr. Airam Tripathi CBC AUTO DIFFon 01-06-2022 BASO # 0.0 103/ul Normal 0.0-0.1 [facility] Comment on above: Performed By: #### C BC ####[facility] Aibuvruiuf25[address] [place], [place] [address]Dr. Airam Tripathi Basophils/100 WBC (Bld) 0.3 % Normal 0.2-2.0 [facility] Comment on above: Performed By: #### C BC ####[facility] Vymtydwstw[address] [place], [place] [address]Dr. Airam Tripathi EO # 0.2 103/ul Normal 0.0-0.7 [facility] Comment on above: Performed By: #### C BC ####[facility] Wrgekeihxo8[address] [place], [place] [address]Dr. Airam Tripathi Eosinophils/100 WBC (Bld) 4.1 % Normal 0.9-7.0 [facility] Comment on above: Performed By: #### C BC ####[facility] Lrxofgxdev5[address] [place], [place] [address]Dr. Airam Tripathi Erythrocyte distribution width (RBC) [Ratio] 12.9 % Normal 11.0-15.0 [facility] Comment on above: Performed By: #### C BC ####[facility] Auedgzglfh[address] [place], [place] [id number]. Selenaneil Tripathi Hematocrit (Bld) [Volume fraction] 34.2 % Critically low 36.0-48.0 [facility] Comment on above: Performed By: #### C BC ####[facility] Lwq[address]jv[address] [place] [address]Dr. Airam Tripathi Hemoglobin (Bld) [Mass/Vol] 10.6 g/dL Critically low 12.0-16.0 [facility] Comment on above: Performed By: #### C BC ####[facility] Zcgbxymavx4[address] [place] [address]Dr. Airam Tripathi IG # 0.03 10e3/ul Normal 0.00-0.03 [facility] Comment on above: Performed By: #### C BC ####[facility] Rudyinrwlo[address] [place], [place] [address]Dr. Airam Tripathi IG % 0.5 % Normal 0.0-0.5 [facility] Comment on above: Performed By: #### C BC ####[facility] Hidepobdev27[address] [place], [place] [address]Dr. Airam Tripathi LYMPH # 1.1 103/ul Critically low 1.2-3.8 [facility] Comment on above: Performed By: #### C BC ####[facility] Ymmygywhhw280[address] [place], [place] [address]Dr. Airam Tripathi Lymphocytes/100 WBC (Bld) 18.2 % Critically low 20.5-60.0 [facility] Comment on above: Performed By: #### C BC ####[facility] Jwcykbgoam5[address] [place] [address]DrKianna Tripathi MANUAL DIFF REQ NO Normal [facility] Comment on above: Performed By: #### C BC ####[facility] Gtkpdallmn1067[address] [place], [place] [address]DrKianna Tripathi MCH (RBC) [Entitic mass] 29.6 pg Normal 26.7-34.0 [facility] Comment on above: Performed By: #### C BC ####[facility] Kyzqfutloe05[address] [place], [place] [address]Dr. Airam Deuce MCHC (RBC) [Mass/Vol] 31.0 g/dL Normal 29.9-35.2 [facility] Comment on above: Performed By: #### C BC ####[facility] Kwqcuadzjy33[address] [place] [address]Dr. Airam Tripathi MCV (RBC) [Entitic vol] 95.5 fL Normal 81.0-99.0 [facility] Comment on above: Performed By: #### C BC ####[facility] Edzcafwgns500[address] [place] [address]Dr. Airam Tripathi MONO # 0.5 103/ul Normal 0.3-0.8 [facility] Comment on above: Performed By: #### C BC ####[facility] Vjsfvwkain8422[address] [place], [place] [address]Dr. Airam Tripathi Monocytes/100 WBC (Bld) 8.5 % Normal 1.7-12.0 [facility] Comment on above: Performed By: #### C BC ####[facility] Mduoyllaci7606[address] [place], [place] [address]Dr. Airam Tripathi NEUT # 4.0 103/ul Normal 1.4-6.5 [facility] Comment on above: Performed By: #### C BC ####[facility] Liqbmiotye7176[address] [place], [place] [address]Dr. Airam Tripathi Neutrophils/100 WBC (Bld) 68.4 % Normal 43.0-75.0 [facility] Comment on above: Performed By: #### C BC ####[facility] Cwrljnrciz349[address] [place], [place] [address]Dr. Airam Tripathi Platelet mean volume (Bld) [Entitic vol] 10.1 fL Normal 9.5-13.5 [facility] Comment on above: Performed By: #### C BC ####[facility] Wzsgxevwdd67[address] [place], [place] [address]Dr. Airam Tripathi PLT 304 103/ul Normal 150-450 [facility] Comment on above: Performed By: #### C BC ####[facility] Ynjasooxci3914[address] [place], [place] [address]Dr. Airam Tripathi RBC 3.58 106/ul Critically low 4.20-5.40 [facility] Comment on above: Performed By: #### C BC ####[facility] Nkyfjcjmft70[address] [place] [address]Dr. Airam Tripathi WBC 5.9 103/ul Normal 4.0-11.0 [facility] Comment on above: Performed By: #### C BC ####[facility] Jyypfrdxql2035 [place] [address]Dr. Airam Tripathi MG MAMM RT DIAG FUon 022 MG MAMM RT DIAG FU Normal [facility] PROF 14(COMP METB)on 022 Albumin [Mass/Vol] 3.1 g/dL Critically low 3.4-5.0 [facility] Comment on above: Performed By: #### C MP ####[facility] Mjrhkjaudq[address] [place], [place] [address]Dr. Airam Tripathi Albumin/Globulin [Mass ratio] 1.0 {ratio} Normal [facility] Comment on above: Performed By: #### C MP ####[facility] Gtynteoobb[address] [place] [address]Dr. Airam Deuce ALP [Catalytic activity/Vol] 143 U/L Critically high 46-116 [facility] Comment on above: Performed By: #### C MP ####[facility] Moumvieyxj32[address] [place] [address]Dr. Airam Deuce ALT [Catalytic activity/Vol] 23 U/L Normal 14-59 [facility] Comment on above: Performed By: #### C MP ####[facility] Ozxypdsbse22[address] [place] [address]Dr. Airam Deuce Anion gap [Moles/Vol] 13.2 mmol/L Normal [facility] Comment on above: Performed By: #### C MP ####[facility] Tenomrgxwb6[address] [place] [address]Dr. Airam Deuce AST [Catalytic activity/Vol] 20 U/L Normal 15-37 [facility] Comment on above: Performed By: #### C MP ####[facility] Hcowkllsqb5038 [place] [phone]. Airam Tripathi Bilirubin [Mass/Vol] 0.3 mg/dL Normal 0.2-1.0 [facility] Comment on above: Performed By: #### C MP ####[facility] Gkalbatzqn3292 [place] [address]Dr. Airam Tripathi Calcium [Mass/Vol] 8.2 mg/dL Critically low 8.5-10.1 [facility] Comment on above: Performed By: #### C MP ####[facility] Xpfpuuqxdd7765[address] [place], [place] [address]Dr. Airam Tripathi Chloride [Moles/Vol] 100 mmol/L Normal 98-107 [facility] Comment on above: Performed By: #### C MP ####[facility] Jvagyqkuwm2312[address] [place], [place] [address]Dr. Airam Tripathi CO2 [Moles/Vol] 26.0 mmol/L Normal 21.0-32.0 [facility] Comment on above: Performed By: #### C MP ####[facility] Sgkkrlwufs7329[address] [place], [place] [address]Dr. Airam Tripathi Creatinine [Mass/Vol] 1.52 mg/dL Critically high 0.55-1.02 [facility] Comment on above: Performed By: #### C MP ####[facility] Qvgnkqldbf1167[address] [place], [place] [address]Dr. Airam Tripathi EGFR-AF CITIZEN OF [place] 42 mL/min/1.73m2 Critically low >=60 [facility] Comment on above: Performed By: #### C MP ####[facility] Phtmvrmdid739[address] [place], [place] [address]Dr. Airam Tripathi EGFR-NON AF CITIZEN OF [place] 35 mL/min/1.73m2 Critically low >=60 [facility] Comment on above: Performed By: #### C MP ####[facility] Azinwkwiwj5515[address] [place], [place] [address]Dr. Airam Tripathi Globulin (S) [Mass/Vol] 3.2 g/dL Normal [facility] Comment on above: Performed By: #### C MP ####[facility] Iadkydynff79[address] [place] [address]Dr. Airam Tripathi Glucose [Mass/Vol] 84 mg/dL Normal 74-106 [facility] Comment on above: Performed By: #### C MP ####[facility] Tyegsvsnvf9102 [place] [address]Dr. Selenaneil Tripathi Potassium [Moles/Vol] 4.2 mmol/L Normal 3.5-5.1 [facility] Comment on above: Performed By: #### C MP ####[facility] Glksjjmpvf5699 [place] [address]Dr. Airam Tripathi Protein [Mass/Vol] 6.3 g/dL Critically low 6.4-8.2 [facility] Comment on above: Performed By: #### C MP ####[facility] Vfmrpacdie4462[address] [place], [place] [address]Dr. Airam Tripathi Sodium [Moles/Vol] 135 mmol/L Critically low 136-145 [facility] Comment on above: Performed By: #### C MP ####[facility] Kqjkcozexb224[address] [place], [place] [address]Dr. Airam Deuce Urea nitrogen [Mass/Vol] 36.0 mg/dL Critically high 7.0-18.0 [facility] Comment on above: Performed By: #### C MP ####[facility] Uldvsfoxzf17[address] [place], [place] [address]Dr. Selenaneil Deuce Urea nitrogen/Creatinine [Mass ratio] 23.7 mg/mg Normal [facility] Comment on above: Performed By: #### C MP ####[facility] Pxcpqgmuym9614[address] [place], [place] [address]Dr. Airam Tripathi US BREAST RIGHT LIMITEDon US BREAST RIGHT LIMITED Normal [facility] OSMOLALITYon 12-31-2021 Osmolality [Osmolality] 280 mosm/kg Normal 275-295 [facility] Comment on above: Performed By: #### O SMO ####[facility] Shjopsnslq8822[address] [place], [place] [address]Dr. Airam Tripathi CBC AUTO DIFFon 12-30-2021 BASO # 0.0 103/ul Normal 0.0-0.1 [facility] Comment on above: Performed By: #### C BC ####[facility] Nahkdfnvok[address] [place] [address]Dr. Airam Tripathi Basophils/100 WBC (Bld) 0.5 % Normal 0.2-2.0 [facility] Comment on above: Performed By: #### C BC ####[facility] Bysakaicgx382[address] [place], [place] [address]Dr. Airam Tripathi EO # 0.3 103/ul Normal 0.0-0.7 [facility] Comment on above: Performed By: #### C BC ####[facility] Scdwnsxzeu1201[address] [place], [place] [address]Dr. Airam Tripathi Eosinophils/100 WBC (Bld) 3.5 % Normal 0.9-7.0 [facility] Comment on above: Performed By: #### C BC ####[facility] Qcvlkcoexv4676[address] [place], [place] [address]Dr. Airam Tripathi Erythrocyte distribution width (RBC) [Ratio] 13.0 % Normal 11.0-15.0 [facility] Comment on above: Performed By: #### C BC ####[facility] Pmuvkrtwxl6822[address] [place], [place] [address]Dr. Airam Tripathi Hematocrit (Bld) [Volume fraction] 34.2 % Critically low 36.0-48.0 [facility] Comment on above: Performed By: #### C BC ####[facility] Urfzzbkutb365[address] [place], [place] [address]Dr. Airam Tripathi Hemoglobin (Bld) [Mass/Vol] 10.4 g/dL Critically low 12.0-16.0 [facility] Comment on above: Performed By: #### C BC ####[facility] Xzsopdbfdc34[address] [place], [place] [address]Dr. Airam Tripathi IG # 0.04 10e3/ul Critically high 0.00-0.03 [facility] Comment on above: Performed By: #### C BC ####[facility] Kajqpgyupo[address] [place] [address]Dr. Airam Tripathi IG % 0.5 % Normal 0.0-0.5 [facility] Comment on above: Performed By: #### C BC ####[facility] Cjidmtatbf7617[address] [place], [place] [address]DrKianna Tripathi LYMPH # 2.1 103/ul Normal 1.2-3.8 [facility] Comment on above: Performed By: #### C BC ####[facility] Vkfhodkcyc82[address] [place], [place] [address]DrKianna Tripathi Lymphocytes/100 WBC (Bld) 23.5 % Normal 20.5-60.0 [facility] Comment on above: Performed By: #### C BC ####[facility] Vvpmcuzzlh22[address] [place], [place] [address]DrKianna Tripathi MANUAL DIFF REQ NO Normal [facility] Comment on above: Performed By: #### C BC ####[facility] Dnlmjxctrk4398[address] [place], [place] [address]DrKianna Tripathi MCH (RBC) [Entitic mass] 29.4 pg Normal 26.7-34.0 [facility] Comment on above: Performed By: #### C BC ####[facility] Plbbgydtdi[address] [place], [place] [address]DrKianna Tripathi MCHC (RBC) [Mass/Vol] 30.4 g/dL Normal 29.9-35.2 [facility] Comment on above: Performed By: #### C BC ####[facility] Hjnpmmojpk3950[address] [place], [place] [address]DrKianna Tripathi MCV (RBC) [Entitic vol] 96.6 fL Normal 81.0-99.0 [facility] Comment on above: Performed By: #### C BC ####[facility] Vecaufasmv5[address] [place], [place] [address]DrKianna Tripathi MONO # 0.6 103/ul Normal 0.3-0.8 [facility] Comment on above: Performed By: #### C BC ####[facility] Cjsihzugnr2256[address] [place], [place] [address]DrKianna Tripathi Monocytes/100 WBC (Bld) 6.4 % Normal 1.7-12.0 [facility] Comment on above: Performed By: #### C BC ####[facility] Odwxicrbkw5633 [place] [address]Dr. Airam Tripathi NEUT # 5.8 103/ul Normal 1.4-6.5 [facility] Comment on above: Performed By: #### C BC ####[facility] Osjnnuctxx0095 [place] [address]Dr. Airam Tripathi Neutrophils/100 WBC (Bld) 65.6 % Normal 43.0-75.0 [facility] Comment on above: Performed By: #### C BC ####[facility] Awhmrxyivf5613 [place] [address]Dr. Airam Tripathi Platelet mean volume (Bld) [Entitic vol] 9.2 fL Critically low 9.5-13.5 [facility] Comment on above: Performed By: #### C BC ####[facility] Ygmzummpsm5665[address] [place], [place] [address]Dr. Airam Tripathi PLT 338 103/ul Normal 150-450 [facility] Comment on above: Performed By: #### C BC ####[facility] Jkhdoosnwr9418[address] [place], [place] [address]Dr. Airam Tripathi RBC 3.54 106/ul Critically low 4.20-5.40 [facility] Comment on above: Performed By: #### C BC ####[facility] Kxuosxlpia5670[address] [place], [place] [address]Dr. Airam Tripathi WBC 8.9 103/ul Normal 4.0-11.0 [facility] Comment on above: Performed By: #### C BC ####[facility] Bkappbwodz3266[address] [place], [place] [address]Dr. Airam Tripathi MG MAMM SCREEN 3D GUMARO CADon 12-30-2021 MG MAMM SCREEN 3D GUMARO CAD Normal [facility] PROF 14(COMP METB)on 022 Albumin [Mass/Vol] 3.6 g/dL Normal 3.4-5.0 [facility] Comment on above: Performed By: #### C MP ####[facility] Epbgmzfbpt9246 [place] [address]Dr. Airam Deuce Albumin/Globulin [Mass ratio] 1.1 {ratio} Normal [facility] Comment on above: Performed By: #### C MP ####[facility] Csdbdlqado9702 [place] [phone]. Selenaneil Deuce ALP [Catalytic activity/Vol] 117 U/L Critically high 46-116 [facility] Comment on above: Performed By: #### C MP ####[facility] Zqyloyxcwa5961 [place] [address]Dr. Selenaneil Tripathi ALT [Catalytic activity/Vol] 26 U/L Normal 14-59 [facility] Comment on above: Performed By: #### C MP ####[facility] Vsymtqbhby05[address] [place], [place] [address]Dr. Airam Tripathi Anion gap [Moles/Vol] 11.2 mmol/L Normal [facility] Comment on above: Performed By: #### C MP ####[facility] Pkfrqucbjb409[address] [place], [place] [address]Dr. Selenaneil Tripathi AST [Catalytic activity/Vol] 29 U/L Normal 15-37 [facility] Comment on above: Performed By: #### C MP ####[facility] Nwgudhkgvo544[address] [place], [place] [address]Dr. Airam Tripathi Bilirubin [Mass/Vol] 0.3 mg/dL Normal 0.2-1.0 [facility] Comment on above: Performed By: #### C MP ####[facility] Kgjccayrkj8517[address] [place], [place] [address]Dr. Airam Tripathi Calcium [Mass/Vol] 9.1 mg/dL Normal 8.5-10.1 [facility] Comment on above: Performed By: #### C MP ####[facility] Xhrtlpjeqd5666[address] [place], [place] [address]Dr. Airam Tripathi Chloride [Moles/Vol] 101 mmol/L Normal 98-107 [facility] Comment on above: Performed By: #### C MP ####[facility] Quvbskcasc7694 [place] [phone]. Airam Tripathi CO2 [Moles/Vol] 26.8 mmol/L Normal 21.0-32.0 [facility] Comment on above: Performed By: #### C MP ####[facility] Uzagvqyfnx3600 [place] [phone]. Airam Tripathi Creatinine [Mass/Vol] 1.56 mg/dL Critically high 0.55-1.02 [facility] Comment on above: Performed By: #### C MP ####[facility] Mlthsfxicz4564 [place] [phone]. Airam Tripathi EGFR-AF CITIZEN OF [place] 41 mL/min/1.73m2 Critically low >=60 [facility] Comment on above: Performed By: #### C MP ####[facility] Hbtgoraicg8720 [place] [phone]. Airam Tripathi EGFR-NON AF CITIZEN OF [place] 34 mL/min/1.73m2 Critically low >=60 [facility] Comment on above: Performed By: #### C MP ####[facility] Vvfuajdxws9955 [place] [phone]. Airam Tripathi Globulin (S) [Mass/Vol] 3.3 g/dL Normal [facility] Comment on above: Performed By: #### C MP ####[facility] Uytdojpdvm7111 [place] [phone]. Airam Tripathi Glucose [Mass/Vol] 84 mg/dL Normal 74-106 [facility] Comment on above: Performed By: #### C MP ####[facility] Ursdfhlzes1427 [place] [phone]. Airam Tripathi Potassium [Moles/Vol] 5.0 mmol/L Normal 3.5-5.1 [facility] Comment on above: Performed By: #### C MP ####[facility] Qbmbjnmpan4699 [place] [phone]. Airam Tripathi Protein [Mass/Vol] 6.9 g/dL Normal 6.4-8.2 [facility] Comment on above: Performed By: #### C MP ####[facility] Lpcchwsouk5364 [place] [phone]. Airam Tripathi Sodium [Moles/Vol] 134 mmol/L Critically low 136-145 [facility] Comment on above: Performed By: #### C MP ####[facility] Fumdgpvzzj88[address] [place], [place] [address]Dr. Airam Tripathi Urea nitrogen [Mass/Vol] 28.0 mg/dL Critically high 7.0-18.0 [facility] Comment on above: Performed By: #### C MP ####[facility] Oxzknlbltw5[address] [place], [place] [address]Dr. Airam Tripathi Urea nitrogen/Creatinine [Mass ratio] 17.9 mg/mg Normal [facility] Comment on above: Performed By: #### C MP ####[facility] Nycngsheoz20[address] [place], [place] [address]Dr. Airam Tripathi OSMOLALITYon 12-24-2021 Osmolality [Osmolality] 287 mosm/kg Normal 275-295 [facility] Comment on above: Performed By: #### O SMO ####[facility] Plxdoefvpi7[address] [place], [place] [address]Dr. Airam Tripathi CBC AUTO DIFFon 12-22-2021 BASO # 0.0 103/ul Normal 0.0-0.1 [facility] Comment on above: Performed By: #### C BC ####[facility] Ywgujbscxk2493 [place] [address]Dr. Airam Deuce Basophils/100 WBC (Bld) 0.5 % Normal 0.2-2.0 [facility] Comment on above: Performed By: #### C BC ####[facility] Hacjgawnkv5539[address] [place], [place] [address]Dr. Airam Deuce EO # 0.4 103/ul Normal 0.0-0.7 [facility] Comment on above: Performed By: #### C BC ####[facility] Eeuvocovqy110[address] [place], [place] [address]Dr. Airam Deuce Eosinophils/100 WBC (Bld) 6.4 % Normal 0.9-7.0 [facility] Comment on above: Performed By: #### C BC ####[facility] Kyefeknefi42[address] [place] [address]Dr. Airam Tripathi Erythrocyte distribution width (RBC) [Ratio] 13.2 % Normal 11.0-15.0 [facility] Comment on above: Performed By: #### C BC ####[facility] Wfndrtelns93[address] [place], [place] [address]Dr. Airam Tripathi Hematocrit (Bld) [Volume fraction] 32.2 % Critically low 36.0-48.0 [facility] Comment on above: Performed By: #### C BC ####[facility] Oyvqahpadq8012[address] [place], [place] [address]Dr. Airam Tripathi Hemoglobin (Bld) [Mass/Vol] 10.1 g/dL Critically low 12.0-16.0 [facility] Comment on above: Performed By: #### C BC ####[facility] Yyrutjgnkz36[address] [place], [place] [address]Dr. Airam Tripathi IG # 0.03 10e3/ul Normal 0.00-0.03 [facility] Comment on above: Performed By: #### C BC ####[facility] Bwriynexai7[address] [place], [place] [address]Dr. Airam Tripathi IG % 0.5 % Normal 0.0-0.5 [facility] Comment on above: Performed By: #### C BC ####[facility] Bwdrzcylyh[address] [place], [place] [address]Dr. Airam Tripathi LYMPH # 1.3 103/ul Normal 1.2-3.8 [facility] Comment on above: Performed By: #### C BC ####[facility] Uxdymvbmmi3237[address] [place], [place] [address]Dr. Airam Tripathi Lymphocytes/100 WBC (Bld) 20.5 % Normal 20.5-60.0 [facility] Comment on above: Performed By: #### C BC ####[facility] Pxlnstdjik045[address] [place], [place] [address]Dr. Airam Tripathi MANUAL DIFF REQ NO Normal [facility] Comment on above: Performed By: #### C BC ####[facility] Uejkpnglsh9765 [place] [phone]. Airam Tripathi MCH (RBC) [Entitic mass] 30.1 pg Normal 26.7-34.0 [facility] Comment on above: Performed By: #### C BC ####[facility] Cdnwyzfxuh4270 [place] [phone]. Airam Tripathi MCHC (RBC) [Mass/Vol] 31.4 g/dL Normal 29.9-35.2 [facility] Comment on above: Performed By: #### C BC ####[facility] Yqqqvxxojf3217 [place] [phone]. Airam Deuce MCV (RBC) [Entitic vol] 95.8 fL Normal 81.0-99.0 [facility] Comment on above: Performed By: #### C BC ####[facility] Lkccxdykyu153[address] [place], [place] [address]Dr. Selenaneil Deuce MONO # 0.5 103/ul Normal 0.3-0.8 [facility] Comment on above: Performed By: #### C BC ####[facility] Vgyllkrrod6865 [place] [address]Dr. Selenaneil Tripathi Monocytes/100 WBC (Bld) 7.4 % Normal 1.7-12.0 [facility] Comment on above: Performed By: #### C BC ####[facility] K[address]mmjlyoe64[address] [place], [place] [address]Dr. Airam Tripathi NEUT # 3.9 103/ul Normal 1.4-6.5 [facility] Comment on above: Performed By: #### C BC ####[facility] [address]qoydceotn[address] [place], [place] [address]Dr. Selenaneil Tripathi Neutrophils/100 WBC (Bld) 64.7 % Normal 43.0-75.0 [facility] Comment on above: Performed By: #### C BC ####[facility] Wdwbsyzxsp[address] [place], [place] [address]Dr. Airam Tripathi Platelet mean volume (Bld) [Entitic vol] 9.2 fL Critically low 9.5-13.5 [facility] Comment on above: Performed By: #### C BC ####[facility] Wbtxfpprxv0245 [place] [phone]. Airam Tripathi PLT 309 103/ul Normal 150-450 [facility] Comment on above: Performed By: #### C BC ####[facility] Aaoajciewu2793 [place] [phone]. Airam Tripathi RBC 3.36 106/ul Critically low 4.20-5.40 [facility] Comment on above: Performed By: #### C BC ####[facility] Ahcaawdprz7190 [place] [phone]. Airam Tripathi WBC 6.1 103/ul Normal 4.0-11.0 [facility] Comment on above: Performed By: #### C BC ####[facility] Eywtffytzk4437 [place] [address]Dr. Airam Tripathi PROF 14(COMP METB)on 022 Albumin [Mass/Vol] 3.2 g/dL Critically low 3.4-5.0 [facility] Comment on above: Performed By: #### C MP ####[facility] Nwgettwxgq4485 [place] [address]Dr. Airam Deuce Albumin/Globulin [Mass ratio] 1.1 {ratio} Normal [facility] Comment on above: Performed By: #### C MP ####[facility] Ffqugpyzgr1902 [place] [address]Dr. Selenaneil Deuce ALP [Catalytic activity/Vol] 123 U/L Critically high 46-116 [facility] Comment on above: Performed By: #### C MP ####[facility] Qlqiowcgdz3661 [place] [address]Dr. Airam Tripathi ALT [Catalytic activity/Vol] 26 U/L Normal 14-59 [facility] Comment on above: Performed By: #### C MP ####[facility] Lfenkejzux8858 [place] [address]Dr. Airam Tripathi Anion gap [Moles/Vol] 14.5 mmol/L Normal [facility] Comment on above: Performed By: #### C MP ####[facility] Yqzsqagktt0568 [place] [phone]. Airam Tripathi AST [Catalytic activity/Vol] 23 U/L Normal 15-37 [facility] Comment on above: Performed By: #### C MP ####[facility] Qqwtouqzzm1645 [place], [place] [address]Cg. Airam Tripathi Bilirubin [Mass/Vol] 0.3 mg/dL Normal 0.2-1.0 [facility] Comment on above: Performed By: #### C MP ####[facility] Zestspklzy1073 [place] [phone]. Airam Tripathi Calcium [Mass/Vol] 8.2 mg/dL Critically low 8.5-10.1 Th e [facility] Comment on above: Performed By: #### C MP ####[facility] Yhfccegdqg[address] [place], [place] [id number]. Airam Tripathi Chloride [Moles/Vol] 102 mmol/L Normal 98-107 [facility] Comment on above: Performed By: #### C MP ####[facility] Ifmeoneudm0354 [place] [phone]. Airam Tripathi CO2 [Moles/Vol] 23.2 mmol/L Normal 21.0-32.0 [facility] Comment on above: Performed By: #### C MP ####[facility] Dairjhpmta6708 [place] [phone]. Airam Tripathi Creatinine [Mass/Vol] 1.98 mg/dL Critically high 0.55-1.02 [facility] Comment on above: Performed By: #### C MP ####[facility] Swhhxeuufg5411 [place] [phone]. Airam Tripathi EGFR-AF CITIZEN OF [place] 31 mL/min/1.73m2 Critically low >=60 [facility] Comment on above: Performed By: #### C MP ####[facility] Dwovgontop[address] [place], [place] [id number]. Airam Tripathi EGFR-NON AF CITIZEN OF [place] 26 mL/min/1.73m2 Critically low >=60 [facility] Comment on above: Performed By: #### C MP ####[facility] Phbwklslfd1592 [place] [address]Dr. Airam Tripathi Globulin (S) [Mass/Vol] 3.0 g/dL Normal [facility] Comment on above: Performed By: #### C MP ####[facility] Vdblgbpxgp7134 [place] [address]Dr. Airam Tripathi Glucose [Mass/Vol] 131 mg/dL Critically high 74-106 T [facility] Comment on above: Performed By: #### C MP ####[facility] Vqfqfliwrz5322 [place] [address]Dr. Airam Tripathi Potassium [Moles/Vol] 4.7 mmol/L Normal 3.5-5.1 [facility] Comment on above: Performed By: #### C MP ####[facility] Qsdgiedlwp65[address] [place], [place] [address]Dr. Airam Tripathi Protein [Mass/Vol] 6.2 g/dL Critically low 6.4-8.2 [facility] Comment on above: Performed By: #### C MP ####[facility] Livrcisjrp569[address] [place], [place] [address]Dr. Airam Tripathi Sodium [Moles/Vol] 135 mmol/L Critically low 136-145 [facility] Comment on above: Performed By: #### C MP ####[facility] Bigkxwswcw984[address] [place], [place] [address]Dr. Airam Tripathi Urea nitrogen [Mass/Vol] 37.0 mg/dL Critically high 7.0-18.0 [facility] Comment on above: Performed By: #### C MP ####[facility] Orryhhecnl[address] [place], [place] [address]Dr. Airam Tripathi Urea nitrogen/Creatinine [Mass ratio] 18.7 mg/mg Normal [facility] Comment on above: Performed By: #### C MP ####[facility] Pvupvgrhlj3[address] [place], [place] [address]Dr. Airam Tripathi OSMOLALITYon 12-18-2021 Osmolality [Osmolality] 271 mosm/kg Critically low 275-295 [facility] Comment on above: Performed By: #### O SMO ####[facility] Ihrbwbnsvf6905 [place] [phone]. Airam Deuce CBC AUTO DIFFon 12-16-2021 BASO # 0.0 103/ul Normal 0.0-0.1 [facility] Comment on above: Performed By: #### C BC ####[facility] Knzjumsidf0623 [place] [address]Dr. Airam Tripathi Basophils/100 WBC (Bld) 0.6 % Normal 0.2-2.0 [facility] Comment on above: Performed By: #### C BC ####[facility] Nzcuwmgmog1856[address] [place], [place] [address]Dr. Airam Tripathi EO # 0.1 103/ul Normal 0.0-0.7 [facility] Comment on above: Performed By: #### C BC ####[facility] Jhxbyorwsr3536[address] [place], [place] [address]Dr. Airam Tripathi Eosinophils/100 WBC (Bld) 2.1 % Normal 0.9-7.0 [facility] Comment on above: Performed By: #### C BC ####[facility] Uzlbxfkxnh2728[address] [place], [place] [address]Dr. Airam Deuce Erythrocyte distribution width (RBC) [Ratio] 13.1 % Normal 11.0-15.0 [facility] Comment on above: Performed By: #### C BC ####[facility] Uccfntqzxw9665[address] [place], [place] [address]Dr. Airam Tripathi Hematocrit (Bld) [Volume fraction] 33.8 % Critically low 36.0-48.0 [facility] Comment on above: Performed By: #### C BC ####[facility] Bjkwmvemli2248[address] [place], [place] [address]Dr. Airam Tripathi Hemoglobin (Bld) [Mass/Vol] 10.7 g/dL Critically low 12.0-16.0 [facility] Comment on above: Performed By: #### C BC ####[facility] Ptovgktimr7994[address] [place], [place] [address]Dr. Airam Tripathi IG # 0.02 10e3/ul Normal 0.00-0.03 [facility] Comment on above: Performed By: #### C BC ####[facility] Hqcoftjdws5800 [place] [address]DrKianna Selenaenil Tripathi IG % 0.3 % Normal 0.0-0.5 [facility] Comment on above: Performed By: #### C BC ####[facility] Aslfpmkvtr7018 [place] [address]Dr. Selenaneil Tripathi LYMPH # 1.2 103/ul Normal 1.2-3.8 [facility] Comment on above: Performed By: #### C BC ####[facility] Gvhfqgvzet5[address] [place], [place] [address]DrKianna Selenaneil Tripathi Lymphocytes/100 WBC (Bld) 17.3 % Critically low 20.5-60.0 [facility] Comment on above: Performed By: #### C BC ####[facility] Cnbnixuilk7[address] [place], [place] [address]DrKianna Selenaneil Tripathi MANUAL DIFF REQ NO Normal [facility] Comment on above: Performed By: #### C BC ####[facility] Dacmszjiqk34[address] [place], [place] [address]Dr. Airam Deuce MCH (RBC) [Entitic mass] 30.2 pg Normal 26.7-34.0 [facility] Comment on above: Performed By: #### C BC ####[facility] Zjjgtukstg7[address] [place], [place] [address]DrKianna Airam Deuce MCHC (RBC) [Mass/Vol] 31.7 g/dL Normal 29.9-35.2 [facility] Comment on above: Performed By: #### C BC ####[facility] Vyhopdfmte[address] [place], [place] [address]DrKianna Airam Deuce MCV (RBC) [Entitic vol] 95.5 fL Normal 81.0-99.0 [facility] Comment on above: Performed By: #### C BC ####[facility] Fczowyerkg8354[address] [place], [place] [address]DrKianna Tripathi MONO # 0.5 103/ul Normal 0.3-0.8 [facility] Comment on above: Performed By: #### C BC ####[facility] Dtcnomelue2189 [place] [phone]. Airam Tripathi Monocytes/100 WBC (Bld) 6.8 % Normal 1.7-12.0 [facility] Comment on above: Performed By: #### C BC ####[facility] Iakhqadqlq6706 [place] [phone]. Airam Tripathi NEUT # 4.9 103/ul Normal 1.4-6.5 [facility] Comment on above: Performed By: #### C BC ####[facility] Ldkkglymxk8145 [place] [phone]. Airam Tripathi Neutrophils/100 WBC (Bld) 72.9 % Normal 43.0-75.0 [facility] Comment on above: Performed By: #### C BC ####[facility] Nsgquwufyh0072 [place] [phone]. Airam Tripathi Platelet mean volume (Bld) [Entitic vol] 9.0 fL Critically low 9.5-13.5 [facility] Comment on above: Performed By: #### C BC ####[facility] Houdkrsznv0454 [place] [phone]. Airam Tripathi PLT 297 103/ul Normal 150-450 [facility] Comment on above: Performed By: #### C BC ####[facility] Abbasdcxbl7404 [place] [phone]. Airam Tripathi RBC 3.54 106/ul Critically low 4.20-5.40 [facility] Comment on above: Performed By: #### C BC ####[facility] Wubmnznekb8634 [place] [phone]. Airam Tripathi WBC 6.8 103/ul Normal 4.0-11.0 [facility] Comment on above: Performed By: #### C BC ####[facility] Lsjhhlqbsq2970 [place] [phone] Tripathi PROF 14(COMP METB)on 022 Albumin [Mass/Vol] 3.2 g/dL Critically low 3.4-5.0 [facility] Comment on above: Performed By: #### C MP ####[facility] Mcjcgdwrvp2541 [place] [address]Dr. Selenaneil Deuce Albumin/Globulin [Mass ratio] 1.0 {ratio} Normal [facility] Comment on above: Performed By: #### C MP ####[facility] Zzpzroekmf5766 [place] [address]Dr. Airam Deuce ALP [Catalytic activity/Vol] 109 U/L Normal 46-116 [facility] Comment on above: Performed By: #### C MP ####[facility] Yqjtxxercs8164[address] [place], [place] [address]Dr. Selenaneil Tripathi ALT [Catalytic activity/Vol] 23 U/L Normal 14-59 [facility] Comment on above: Performed By: #### C MP ####[facility] Sptyvguhkf2930[address] [place], [place] [address]Dr. Airam Tripathi Anion gap [Moles/Vol] 11.6 mmol/L Normal [facility] Comment on above: Performed By: #### C MP ####[facility] Xnxehaxkhu95[address] [place], [place] [address]Dr. Selenaneil Tripathi AST [Catalytic activity/Vol] 24 U/L Normal 15-37 [facility] Comment on above: Performed By: #### C MP ####[facility] Jmjsprvwyx125[address] [place], [place] [address]Dr. Airam Tripathi Bilirubin [Mass/Vol] 0.2 mg/dL Normal 0.2-1.0 [facility] Comment on above: Performed By: #### C MP ####[facility] Hmfqnmdjep0256[address] [place], [place] [address]Dr. Airam Tripathi Calcium [Mass/Vol] 8.6 mg/dL Normal 8.5-10.1 [facility] Comment on above: Performed By: #### C MP ####[facility] Xnhyphodwn6538[address] [place], [place] [address]Dr. Airam Tripathi Chloride [Moles/Vol] 100 mmol/L Normal 98-107 [facility] Comment on above: Performed By: #### C MP ####[facility] Kxwcnkjqts1303 [place] [address]Dr. Airam Tripathi CO2 [Moles/Vol] 24.7 mmol/L Normal 21.0-32.0 [facility] Comment on above: Performed By: #### C MP ####[facility] Rrdudzslta9214 [place] [phone]. Airam Tripathi Creatinine [Mass/Vol] 1.11 mg/dL Critically high 0.55-1.02 [facility] Comment on above: Performed By: #### C MP ####[facility] Vepopgmlzc0921 [place] [address]Dr. Airam Tripathi EGFR-AF CITIZEN OF [place] >60 Normal >=60 [facility] Comment on above: Performed By: #### C MP ####[facility] Jqplpldkso1007 [place] [address]Dr. Airam Tripathi EGFR-NON AF CITIZEN OF [place] 50 mL/min/1.73m2 Critically low >=60 [facility] Comment on above: Performed By: #### C MP ####[facility] Rriajpfosq2250 [place] [address]Dr. Airam Tripathi Globulin (S) [Mass/Vol] 3.1 g/dL Normal [facility] Comment on above: Performed By: #### C MP ####[facility] Dotalorlgq1474 [place] [address]Dr. Airam Tripathi Glucose [Mass/Vol] 79 mg/dL Normal 74-106 [facility] Comment on above: Performed By: #### C MP ####[facility] Qulyropwmd036[address] [place], [place] [address]Dr. Airam Tripathi Potassium [Moles/Vol] 5.3 mmol/L Critically high 3.5-5.1 [facility] Comment on above: Performed By: #### C MP ####[facility] Qfnywcfjug4830 [place] [address]Dr. Airam Tripathi Protein [Mass/Vol] 6.3 g/dL Critically low 6.4-8.2 Th [facility] Comment on above: Performed By: #### C MP ####[facility] Xdjtizquwp8777 [place] [address]Dr. Airam Tripathi Sodium [Moles/Vol] 131 mmol/L Critically low 136-145 [facility] Comment on above: Performed By: #### C MP ####[facility] Avwuhwkaoq112[address] [place], [place] [address]Dr. Airam Tripathi Urea nitrogen [Mass/Vol] 20.0 mg/dL Critically high 7.0-18.0 [facility] Comment on above: Performed By: #### C MP ####[facility] Jxljdazmet6022[address] [place], [place] [address]Dr. Airam Tripathi Urea nitrogen/Creatinine [Mass ratio] 18.0 mg/mg Normal [facility] Comment on above: Performed By: #### C MP ####[facility] Zcpqgbfeec3184[address] [place], [place] [address]Dr. Airam Deuce OSMOLALITYon 12-09-2021 Osmolality [Osmolality] 279 mosm/kg Normal 275-295 [facility] Comment on above: Performed By: #### O SMO ####[facility] Rciwmfjkry21[address] [place], [place] [address]Dr. Airam Deuce CBC AUTO DIFFon 12-07-2021 BASO # 0.0 103/ul Normal 0.0-0.1 [facility] Comment on above: Performed By: #### C BC ####[facility] Jkqujqlevh924[address] [place], [place] [address]Dr. Airam Deuce Basophils/100 WBC (Bld) 0.5 % Normal 0.2-2.0 [facility] Comment on above: Performed By: #### C BC ####[facility] Bgjwobqdbv4838[address] [place], [place] [address]Dr. Airam Deuce EO # 0.4 103/ul Normal 0.0-0.7 [facility] Comment on above: Performed By: #### C BC ####[facility] Eqcorvwrti472824 [address] [place], [place] [address]Dr. Selenaneil Tripathi Eosinophils/100 WBC (Bld) 6.3 % Normal 0.9-7.0 [facility] Comment on above: Performed By: #### C BC ####[facility] Qqnmmeutdv2805 [place] [address]Dr. Airam Tripathi Erythrocyte distribution width (RBC) [Ratio] 13.3 % Normal 11.0-15.0 [facility] Comment on above: Performed By: #### C BC ####[facility] Vsnpyrmzsa856[address] [place], [place] [address]Dr. Airam Tripathi Hematocrit (Bld) [Volume fraction] 29.5 % Critically low 36.0-48.0 [facility] Comment on above: Performed By: #### C BC ####[facility] Ylsgpzbzeh07[address] [place], [place] [address]Dr. Airam Tripathi Hemoglobin (Bld) [Mass/Vol] 9.1 g/dL Critically low 12.0-16.0 [facility] Comment on above: Performed By: #### C BC ####[facility] Ofdursgjpg836724 [address] [place], [place] [address]Dr. Airam Tripathi IG # 0.04 10e3/ul Critically high 0.00-0.03 [facility] Comment on above: Performed By: #### C BC ####[facility] Pkjqjcluzc22[address] [place], [place] [address]Dr. Airam Tripathi IG % 0.7 % Critically high 0.0-0.5 [facility] Comment on above: Performed By: #### C BC ####[facility] Fiskyrrygh8760[address] [place], [place] [address]Dr. Airam Tripathi LYMPH # 1.3 103/ul Normal 1.2-3.8 [facility] Comment on above: Performed By: #### C BC ####[facility] Tpxqivnmly5790[address] [place], [place] [address]Dr. Airam Tripathi Lymphocytes/100 WBC (Bld) 20.9 % Normal 20.5-60.0 [facility] Comment on above: Performed By: #### C BC ####[facility] Ggwyujkyrb3278[address] [place], [place] [address]Dr. Airam Tripathi MANUAL DIFF REQ NO Normal [facility] Comment on above: Performed By: #### C BC ####[facility] Tnnytrpkfu2027 [place] [phone]. Airam Deuce MCH (RBC) [Entitic mass] 30.1 pg Normal 26.7-34.0 [facility] Comment on above: Performed By: #### C BC ####[facility] Agqguwppfm1851 [place] [address]Dr. Airam Deuce MCHC (RBC) [Mass/Vol] 30.8 g/dL Normal 29.9-35.2 [facility] Comment on above: Performed By: #### C BC ####[facility] Craxhrbfka2814 [place] [address]Dr. Selenaneil Tripathi MCV (RBC) [Entitic vol] 97.7 fL Normal 81.0-99.0 [facility] Comment on above: Performed By: #### C BC ####[facility] Pgaqlpvipe3856[address] [place], [place] [address]Dr. Airam Tripathi MONO # 0.4 103/ul Normal 0.3-0.8 [facility] Comment on above: Performed By: #### C BC ####[facility] Zrezfzgxic8979[address] [place], [place] [address]Dr. Selenaneil Tripathi Monocytes/100 WBC (Bld) 6.6 % Normal 1.7-12.0 [facility] Comment on above: Performed By: #### C BC ####[facility] Nyzvfgoigz1868[address] [place], [place] [address]Dr. Airam Tripathi NEUT # 4.0 103/ul Normal 1.4-6.5 [facility] Comment on above: Performed By: #### C BC ####[facility] Cfyiyslnxk722[address] [place], [place] [address]Dr. Airam Tripathi Neutrophils/100 WBC (Bld) 65.0 % Normal 43.0-75.0 [facility] Comment on above: Performed By: #### C BC ####[facility] Gdlbogiasa8582[address] [place], [place] [address]Dr. Airam Tripathi Platelet mean volume (Bld) [Entitic vol] 9.4 fL Critically low 9.5-13.5 [facility] Comment on above: Performed By: #### C BC ####[facility] Ngikarwpju1045 [place] [address]Dr. Selenaneil Deuce PLT 224 103/ul Normal 150-450 [facility] Comment on above: Performed By: #### C BC ####[facility] Oegeblkyqq8899 [place] [phone]. Selenaneil Tripathi RBC 3.02 106/ul Critically low 4.20-5.40 [facility] Comment on above: Performed By: #### C BC ####[facility] Tyljzbysnk1027 [place] [phone]. Selenaneil Deuce WBC 6.1 103/ul Normal 4.0-11.0 [facility] Comment on above: Performed By: #### C BC ####[facility] Cxnzwavrwb2247 [place] [address]Dr. Airam Tripathi PROF 14(COMP METB)on 022 Albumin [Mass/Vol] 2.8 g/dL Critically low 3.4-5.0 [facility] Comment on above: Performed By: #### C MP ####[facility] Ibyakeqgfl9465 [place] [address]Dr. Airam Tripathi Albumin/Globulin [Mass ratio] 1.1 {ratio} Normal [facility] Comment on above: Performed By: #### C MP ####[facility] Acdcgdvgpz4755 [place] [address]Dr. Airam Tripathi ALP [Catalytic activity/Vol] 116 U/L Normal 46-116 [facility] Comment on above: Performed By: #### C MP ####[facility] Hnzkbaelxk4335 [place] [phone]. Airam Tripathi ALT [Catalytic activity/Vol] 23 U/L Normal 14-59 [facility] Comment on above: Performed By: #### C MP ####[facility] Nimanemnwu6945 [place] [address]Dr. Airam Tripathi Anion gap [Moles/Vol] 12.1 mmol/L Normal [facility] Comment on above: Performed By: #### C MP ####[facility] Zhmgfeeivq3251 [place] [phone]. Airam Tripathi AST [Catalytic activity/Vol] 23 U/L Normal 15-37 [facility] Comment on above: Performed By: #### C MP ####[facility] Tnjxdxoxew0154 [place] [phone]. Airam Tripathi Bilirubin [Mass/Vol] 0.2 mg/dL Normal 0.2-1.0 [facility] Comment on above: Performed By: #### C MP ####[facility] Qonajqrjrc6627 [place] [address]Dr. Airam Tripathi Calcium [Mass/Vol] 8.1 mg/dL Critically low 8.5-10.1 [facility] Comment on above: Performed By: #### C MP ####[facility] Snfhhzwike58[address] [place], [place] [address]Dr. Airam Tripathi Chloride [Moles/Vol] 105 mmol/L Normal 98-107 [facility] Comment on above: Performed By: #### C MP ####[facility] Ozuvolgrwv4276[address] [place], [place] [address]Dr. Airam Tripathi CO2 [Moles/Vol] 22.1 mmol/L Normal 21.0-32.0 [facility] Comment on above: Performed By: #### C MP ####[facility] Ujbgatdias53[address] [place], [place] [address]Dr. Airam Tripathi Creatinine [Mass/Vol] 1.06 mg/dL Critically high 0.55-1.02 [facility] Comment on above: Performed By: #### C MP ####[facility] Saaivmvlna3377 [place] [phone]. Airam Deuce EGFR-AF CITIZEN OF [place] >60 Normal >=60 [facility] Comment on above: Performed By: #### C MP ####[facility] Mgeowkmlws4218 [place] [phone]. Selenaneil Deuce EGFR-NON AF CITIZEN OF [place] 53 mL/min/1.73m2 Critically low >=60 [facility] Comment on above: Performed By: #### C MP ####[facility] Vwtllmkyhu8465 [place] [address]Dr. Airam Tripathi Globulin (S) [Mass/Vol] 2.6 g/dL Normal [facility] Comment on above: Performed By: #### C MP ####[facility] Ktxtenezrc7321 [place] [address]Dr. Airam Tripathi Glucose [Mass/Vol] 109 mg/dL Critically high 74-106 T [facility] Comment on above: Performed By: #### C MP ####[facility] Elkgntwnrf5943 [place] [address]Dr. Airam Tripathi Potassium [Moles/Vol] 4.2 mmol/L Normal 3.5-5.1 [facility] Comment on above: Performed By: #### C MP ####[facility] Cpowvrqlrr8686[address] [place], [place] [address]Dr. Airma Tripathi Protein [Mass/Vol] 5.4 g/dL Critically low 6.4-8.2 [facility] Comment on above: Performed By: #### C MP ####[facility] Awjpurqhro4174[address] [place], [place] [address]Dr. Airam Tripathi Sodium [Moles/Vol] 135 mmol/L Critically low 136-145 [facility] Comment on above: Performed By: #### C MP ####[facility] Fhkghgpufq04[address] [place], [place] [address]Dr. Airam Tripathi Urea nitrogen [Mass/Vol] 15.0 mg/dL Normal 7.0-18.0 [facility] Comment on above: Performed By: #### C MP ####[facility] Wntnbqrjbl5066[address] [place], [place] [address]Dr. Airam Tripathi Urea nitrogen/Creatinine [Mass ratio] 14.2 mg/mg Normal [facility] Comment on above: Performed By: #### C MP ####[facility] Rkuqrkdzgg82[address] [place], [place] [address]Dr. Airam Deuce Operative Reporton 2 Operative Report MR#: [id number] [facility] Pt. Name: Mabel Moser Room #: [...] subscapularis. 3. Right shoulder proximal biceps tenotomy. [employer] REPRESENTATIVE: Alex Serra M.D. ANESTHESIA: General. INDICATIONS: The [...] Ivy/Carlos Reza M.D. Date Trans: 08/19/2021 11:37 Ivy/carter [id number] cc: Angle Santana M.D. [address] [place] Ivy [facility] [id number] [address] [facility] POC GLUCOSE LABon 08-19-2021 Glucose [Mass/Vol] 77 mg/dL Normal 70-[address] [facility] Comment on above: Performed By: #### [id number] #### [facility] [address] [place] [address], [facility] Gregory 04-05-2021 CNPN Telephone (HEMASA) ----- TYREEMABEL Haynes ([id number]) 1960 F Date Time Provider Department 04/05/21 YEVGENIY FORD During your visit today, we recorded the following information about you: Chana Gallegos [facility] 04/05/2021 7:57 AM Signed Records faxed to the cancer center at [facility]. Patient to follow with Dr. Liu. Release [...] Encounter Status:Closed by CHANA LEE on 04/05/21 [facility] OBSOLETEon 01-11-2021 OBSOLETE Refill (HEMASA) ----- MABEL MOSER ([id number]) 1960 F Date Time Provider Department 01/11/21 [...] Status:Closed by YEVGENIY FORD on 01/12/21 Normal [facility] Vital Signs Date Time Vital Sign Value Performing Clinician Facility 07-03-2023 12:00-0500 Body temperature 97.9 [degF] MD Angle Santana Work Phone: [facility] 07-03-2023 12:00-0500 Diastolic blood pressure 71 mm[Hg] MD Angle Santana Work Phone: [facility] 07-03-2023 12:00-0500 Heart rate 68 /min MD Angle Santana Work Phone: [facility] 07-03-2023 12:00-0500 Respiratory rate 16 /min MD Angle Santana Work Phone: [facility] 07-03-2023 12:00-0500 SaO2% (BldA) [Mass fraction] 100 % MD Angle Santana Work Phone: [facility] 07-03-2023 12:00-0500 Systolic blood pressure 121 mm[Hg] MD Angle Santana Work Phone: [facility] 07-03-2023 04:49-0500 Body weight 85.8 kg MD Angle Santana Work Phone: [facility] 06-30-2023 14:44-0500 Body height 157.48 cm MD Angle Santana Work Phone: [facility] 04-04-2023 16:20-0400 Body height 158.75 cm Raeann Mishras Other [employer] Other 04-04-2023 16:20-0400 Body mass index (BMI) [Ratio] 31.46 kg/m2 Raeann Mishras Other [employer] Other 04-04-2023 16:20-0400 Body temperature 98 [degF] Raeann Mishras Other [employer] Other 04-04-2023 16:20-0400 Body weight 79.29 kg Raeann Mishras Other [employer] Other 04-04-2023 16:20-0400 Diastolic blood pressure 81 mm[Hg] Raeann Mishras Other [employer] Other 04-04-2023 16:20-0400 Respiratory rate 18 /min Raeann Mishras Other [employer] Other 04-04-2023 16:20-0400 SaO2% (BldA) [Mass fraction] 98 % Raeann Mishras Other [employer] Other 04-04-2023 16:20-0400 Systolic blood pressure 133 mm[Hg] Raeann Mishras Other [employer] Other 10-28-2022 22:23-0400 Body temperature 97.4 [degF] MD Angle Santana Work Phone: [facility] 10-28-2022 22:00-0400 Diastolic blood pressure 74 mm[Hg] MD Angle Santana Work Phone: [facility] 10-28-2022 22:00-0400 Heart rate 72 /min MD Angle Snatana Work Phone: [facility] 10-28-2022 22:00-0400 Respiratory rate 20 /min MD Angle Santana Work Phone: [facility] 10-28-2022 22:00-0400 SaO2% (BldA) [Mass fraction] 97 % MD Angle Santana Work Phone: [facility] 10-28-2022 22:00-0400 Systolic blood pressure 169 mm[Hg] MD Angle Santana Work Phone: [facility] 10-28-2022 17:54-0400 Body height 157.48 cm MD Angle Santana Work Phone: [facility] 10-28-2022 17:54-0400 Body weight 83.7 kg MD Angle Santana Work Phone: [facility] 09-27-2022 12:00-0400 Body height 158.75 cm Raeann [employer] Other [facility] [employer] Other 09-27-2022 12:00-0400 Body mass index (BMI) [Ratio] 31.78 kg/m2 Raeann [employer] Other [employer] Other 09-27-2022 12:00-0400 Body temperature 96.1 [degF] Raeann Genia [employer] Other [employer] Other 09-27-2022 12:00-0400 Body weight 80.11 kg Azariel Genia [employer] Other [employer] Other 09-27-2022 12:00-0400 Diastolic blood pressure 82 mm[Hg] Azariel Genia [employer] Other [employer] Other 09-27-2022 12:00-0400 Respiratory rate 18 /min Azariel [employer] Other [employer] Other 09-27-2022 12:00-0400 SaO2% (BldA) [Mass fraction] 99 % Aziz Bakhous Other [employer] Other 09-27-2022 12:00-0400 Systolic blood pressure 140 mm[Hg] Aziz Bakhous Other [employer] Other 04-12-2022 14:00-0400 Body height 158.75 cm Aziz Bakhous Other [employer] Other 04-12-2022 14:00-0400 Body mass index (BMI) [Ratio] 30.13 kg/m2 Aziz Bakhous Other [employer] Other 04-12-2022 14:00-0400 Body temperature 97.6 [degF] Aziz Bakhous Other [employer] Other 04-12-2022 14:00-0400 Body weight 75.93 kg Aziz Bakhous Other [employer] Other 04-12-2022 14:00-0400 Diastolic blood pressure 95 mm[Hg] Aziz Bakhous Other [employer] Other 04-12-2022 14:00-0400 Respiratory rate 18 /min Aziz Bakhous Other [employer] Other 04-12-2022 14:00-0400 SaO2% (BldA) [Mass fraction] 98 % Aziz Bakhous Other [employer] Other 10-18-2022 14:00-0400 Systolic blood pressure 175 mm[Hg] Raeann Kirkpatrick Other [employer] Other 06-16-2021 16:20-0500 Body height 158.75 cm Los Grissom Other [employer] Other 06-16-2021 16:20-0500 Body mass index (BMI) [Ratio] 30.88 kg/m2 Los Grissom Other [employer] Other 06-16-2021 16:20-0500 Body temperature 96.4 [degF] Los Grissom Other [employer] Other 06-16-2021 16:20-0500 Body weight 77.84 kg Los Grissom Other [employer] Other 06-16-2021 16:20-0500 Diastolic blood pressure 88 mm[Hg] Los Grissom Other [employer] Other 06-16-2021 16:20-0500 Respiratory rate 18 /min Los Grissom Other [employer] Other 06-16-2021 16:20-0500 SaO2% (BldA) [Mass fraction] 99 % Los Grissom Other [employer] Other 06-16-2021 16:20-0500 Systolic blood pressure 137 mm[Hg] Los Grissom Other [employer] Other Encounters Encounter Date Encounter Type Care Provider Facility Start: 12-21-2023 End: 12-21-2023 ambulatory [facility] Start: 10-13-2023 ambulatory [facility] Start: 09-30-2023 End: 10-01-2023 Evaluation and management of inpatient BALJINDER HUGHES [facility] Start: 08-16-2023 End: 08-16-2023 ambulatory MACIE GARCIA [facility] Start: 08-01-2023 Evaluation and management of inpatient RAYRAY HARP [facility] Start: 08-01-2023 Evaluation and management of inpatient RAYRAY HARP [facility] Start: 07-31-2023 Evaluation and management of inpatient STEPHANIE [facility] Start: 07-31-2023 Evaluation and management of inpatient STEPHANIE [facility] Start: 07-31-2023 Evaluation and management of inpatient JUDAH QUIROZ [facility] Start: 07-28-2023 Evaluation and management of inpatient RACHEL NOEL [facility] Start: 07-28-2023 End: 08-03-2023 Evaluation and management of inpatient ANGLE SANTANA [facility] Start: 07-13-2023 ambulatory BENJIE ANGELAERNESTINA [facility] Start: 07-11-2023 End: 07-11-2023 ambulatory Raeann Kirkpatrick Other [employer] Other Start: 07-11-2023 Telephone encounter Raeann BENIT[facility] Start: 06-29-2023 End: 07-03-2023 Evaluation and management of inpatient Jim Randhawa Facility:[facility] Start: 06-29-2023 End: 07-03-2023 Evaluation and management of inpatient MD Angle Santana Work Phone: [facility] Work Phone: Start: 04-04-2023 End: 04-04-2023 ambulatory Raeann Kirkpatrick Other [employer] Other Start: 04-04-2023 Office outpatient visit 25 minutes Raeann Mishras [facility] Start: 04-03-2023 End: 04-03-2023 ambulatory Raeann Kirkpatrick Other [employer] Other Start: 04-03-2023 Telephone encounter Raeann Kirkpatrick [facility] Start: 02-22-2023 End: 02-22-2023 ambulatory RHIANNON BERNARD [facility] Start: 02-16-2023 ambulatory DUNCAN DENNIS [facility] Start: 12-12-2022 End: 12-12-2022 ambulatory Raeann Mishras Other [employer] Other Start: 12-12-2022 Telephone encounter Raeann Kirkpatrick [facility] Start: 12-08-2022 End: 12-08-2022 ambulatory Raeann Kirkpatrick Other [place] [employer] Other Start: 12-08-2022 Telephone encounter Raeann Mishras [facility] Start: 11-22-2022 End: 11-22-[address] ANGLE SANTANA . Facility:[facility] Start: 11-22-2022 End: 11-22-2022 ambulatory JENNIERANBARBI PHOENIXMIPATHY . Facility:[facility] Start: 11-16-2022 End: 11-16-[address] ANGLE SANTANA . Facility:[facility] Start: 11-04-2022 End: 11-05-2022 ambulatory NARENDRANATH CHIDISHMIPATHY . Facility:[facility] Start: 11-03-2022 End: 11-03-[address] ANGLE SANTANA . Facility:[facility] Start: 10-31-2022 ambulatory SANTOS ROUSSEAU . Facili ty:[facility] Start: 10-28-2022 End: 10-29-2022 Emergency department patient visit Favian Helm Facility:[facility] Start: 10-28-2022 End: 10-28-2022 Emergency department patient visit MD Angle Santana Work Phone: [facility] Work Phone: Start: 10-27-2022 End: 10-28-2022 ambulatory SADIE DEL [...] ambulatory SADIE DEL CASTILLO . Facility:[facility] Start: 10-05-2022 End: 10-07-[address] ANGLE SANTANA . Facility:[facility] Start: 10-05-2022 ambulatory FELECIA MILIAN . Facility: [facility] Start: 09-29-2022 End: 10-04-[address] ANGLE SANTANA . Facility:[facility] Start: 09-27-2022 End: 09-27-2022 ambulatory Raeann Kirkpatirck Other [employer] Other Start: 09-27-2022 Office outpatient visit 25 minutes Raeann Kirkpatrick [facility] El[place] Start: 09-21-2022 End: 09-22-[address] ANGLE SANTANA . Facility:[facility] Start: 09-20-2022 End: 09-21-2022 ambulatory SADIE DEL CASTILLO . Facility:[facility] Start: 09-19-2022 End: 09-20-[address] ANGLE SANTANA . Facility:[facility] Start: 09-19-2022 End: 09-20-2022 ambulatory RAEANN KIRKPATRICK Facility:[facility] Start: 08-24-2022 End: 09-12-[address] ANGLE SANTANA . Facility:[facility] Start: 08-23-2022 End: 08-23-2022 ambulatory Sue Leiva Other [employer] Other Start: 08-23-2022 Office outpatient ne w 30 minutes Sue Leiva [facility] Start: 08-16-2022 End: 08-17-[address] ANGLE SANTANA . Facility:[facility] Start: 08-06-2022 End: 08-06-2022 ambulatory NIKKIE PRATEEK . Facility:[facility] Start: 07-27-2022 End: 07-28-2022 ambulatory [...] 04-12-2022 End: 04-12-2022 ambulatory Raeann Kirkpatrick Other [employer] Other Start: 04-12-2022 Office outpatient visit 25 minutes Raeann Kirkpatrick [facility] Nephrology [place] Start: 04-06-[address] ANGLE SANTANA . Facili ty:[facility] Start: 03-31-2022 End: 04-20-[address] ANGLE SANTANA . Facility:[facility] Start: 03-03-2022 End: 03-22-[address] ANGLE SANTANA . Facility:[facility] Start: 01-27-2022 End: 01-28-[address] ANGLE SANTANA . Facility:[facility] Start: 01-27-2022 End: 02-22-[address] ANGLE SANTANA . Facility:[facility] Start: 01-19-2022 End: 01-20-2022 ambulatory ROBERT JOHNSTON Facility: Start: 01-11-2022 End: 01-11-[address] ANGLE SANTANA . Facility:[facility] Start: 01-10-2022 End: 01-11-2022 ambulatory Robert Johnston Facility:[facility] Start: 01-06-2022 End: 01-07-[address] ANGLE SANTANA . Facility:[facility] Start: 12-30-2021 End: 01-19-[address] ANGLE SANTANA . Facility:[facility] Start: 12-23-2021 End: 12-24-2021 ambulatory NNAMDI VELIZIS . Facility:[facility] Start: 12-07-2021 End: 12-22-[address] ANGLE SANTANA . Facility:[facility] Start: 12-07-2021 End: 12-07-[address] ANGLE SANTANA . Facility: Start: 08-19-2021 End: 08-20-2021 ambulatory CARLOS REZA Facility:[facility] Start: 06-16-2021 End: 06-16-2021 ambulatory Los Rascongerald Other [employer] Other Start: 06-16-2021 Office outpatient visit 25 minutes Bryonirvin Praveena [facility] Nephrology Start: 01-14-2019 End: 01-14-2019 Patient encounter procedure [facility] Start: 12-03-2018 End: 12-03-2018 Patient encounter procedure [facility] Procedures Date Procedure Procedure Detail Performing [...] (SPECIFY) NIRMAL LEWIS Start: 01-14-2019 NURSING COMMUNICATION W DONNA Start: 01-14-2019 VERIFY INFORMED CONSENT NIRMAL Start: 01-14-2019 VITAL SIGNS NIRMAL Start: 12-03-2018 DISCHARGE PATIENT NIRMAL Start: 12-03-2018 DIET NPO, NOW NIRMAL Calderon Start: 12-03-2018 FULL CODE NIRMAL Start: 12-03-2018 INITIATE OXYGEN THER APY PROTOCOL NIRMAL Start: 12-03-2018 NOTIFY PHYSICIAN (SPECIFY) NIRMAL Start: 12-03-2018 NURSING COMMUNICATION W DONNA Start: 12-03-2018 VERIFY INFORMED CONSENT NIRMAL Start: 12-03-2018 VITAL SIGNS NIRMAL Plan of Treatment Date Care Activity Detail Author Start: 07-03-2023 [facility] Start: 06-29-2023 Hospital admission [facility] Start: 06-29-2023 Referral to foot specialist [facility] Blood chemistry [facility] Patient Education [facility] Work Phone: Patient referral [facility] Work Phone: Payers Date Payer Category Payer Medicare [id number] 2022 Self-pay [id number] 2017 Medicare [id number] 2017 Unknown [id number] 1960 Unknown [id number] 2.16.8 40.1.728469.3.579.2.173 1960 Unknown [id number] 2.16.8 40.1.697232.3.579.2.173 1960 Unknown [id number] 2.16.8 40.1.311879.3.579.2.647 1960 Unknown [id number] 2.16.8 40.1.917671.3.579.2.647 1960 Unknown [id number] 2.16.84 0.1.767939.3.579.2.593 1960 Unknown [id number] 2.16.84 0.1.711260.3.579.2.593 1962 Unknown [id number] 2.16.84 0.1.275806.3.579.2.593 1962 Unknown [id number] 2.16.84 0.1.840466.3.579.2.593 1962 Unknown [id number] 2.16.84 0.1.379792.3.579.2.593 1962 Unknown [id number] 2.16.84 0.1.743967.3.579.2.593 1962 Unknown [id number] 2.16.84 0.1.861833.3.579.2.593 1962 Unknown [id number] 2.16.84 0.1.844413.3.579.2.593 1962 Unknown [id number] 2.16.84 0.1.854549.3.579.2.593 1962 Unknown [id number] 2.16.84 0.1.493189.3.579.2.593 1962 Unknown [id number] 2.16.84 0.1.687309.3.579.2.593 1962 Unknown [id number] 2.16.84 0.1.838655.3.579.2.593 1962 Unknown [id number] 2.16.84 0.1.894958.3.579.2.593 1962 Unknown [id number] 2.16.84 0.1.700831.3.579.2.593 1962 Unknown [id number] 2.16.84 0.1.698668.3.579.2.593 1962 Unknown [id number] 2.16.84 0.1.381105.3.579.2.593 1962 Unknown [id number] 2.16.84 0.1.195308.3.579.2.593 1962 Unknown [id number] 2.16.84 0.1.282113.3.579.2.593 1962 Unknown [id number] 2.16.84 0.1.779398.3.579.2.593 1962 Unknown [id number] 2.16.84 0.1.539588.3.579.2.593 1962 Unknown [id number] 2.16.84 0.1.733213.3.579.2.593 1962 Unknown [id number] 2.16.84 0.1.092734.3.579.2.593 1962 Unknown [id number] 2.16.84 0.1.112343.3.579.2.593 1962 Unknown [id number] 2.16.84 0.1.693404.3.579.2.593 1962 Unknown [id number] 2.16.84 0.1.546932.3.579.2.593 1962 Unknown [id number] 2.16.84 0.1.425987.3.579.2.593 1962 Unknown [id number] 2.16.84 0.1.790855.3.579.2.593 1962 Unknown [id number] 2.16.84 0.1.821042.3.579.2.593 1962 Unknown [id number] 2.16.84 0.1.491772.3.579.2.593 1962 Unknown [id number] 2.16.84 0.1.453149.3.579.2.593 1962 Unknown [id number] 2.16.84 0.1.976117.3.579.2.593 1962 Unknown [id number] 2.16.84 0.1.375801.3.579.2.593 1962 Unknown [id number] 2.16.84 0.1.264879.3.579.2.593 1962 Unknown [id number] 2.16.84 0.1.199114.3.579.2.593 1962 Unknown [id number] 2.16.84 0.1.828209.3.579.2.593 1962 Unknown [id number] 2.16.84 0.1.856204.3.579.2.593 1962 Unknown [id number] 2.16.84 0.1.555637.3.579.2.593 1962 Unknown [id number] 2.16.84 0.1.413743.3.579.2.593 1962 Unknown [id number] 2.16.84 0.1.702473.3.579.2.593 1962 Unknown [id number] 2.16.84 0.1.309175.3.579.2.593 1962 Unknown [id number] 2.16.84 0.1.814225.3.579.2.593 1962 Unknown [id number] 2.16.84 0.1.486316.3.579.2.593 1962 Unknown [id number] 2.16.84 0.1.252446.3.579.2.593 1962 Unknown [id number] 2.16.84 0.1.837201.3.579.2.593 1962 Unknown [id number] 2.16.84 0.1.613704.3.579.2.593 1962 Unknown [id number] 2.16.84 0.1.029850.3.579.2.593 1962 Unknown [id number] 2.16.8 40.1.589433.3.579.2.1286 1962 Unknown [id number] 2.16. 840.1.990070.3.579.2.175 1957 Medicaid [id number] Unknown [id number] 2.1 6.840.1.944282.19 Unknown [employer] BC/BS [id number] Unknown [id number] 2.16.8 40.1.876566.3.579.2.531 Unknown [id number] 2.16.8 40.1.163414.3.579.2.531 Social History Date Type Detail Facility Unknown if ever smoked [employer] Other Sex Assigned At Sex Assigned At Bir th [employer] Other Start: 10-28-2022 End: 06-30-2023 Tobacco smoking status NHIS Never smoked tobacco (finding) [facility] Start: 1960 Sex Assigned At Female [facility] Goals Date Patient Goal Desired Activity /State Functional Status Date Assessment Result Facility 07-03-2023 Functional status Patient at Baseline [facility] Work Phone: Mental Status Date Assessment Result Facility 07-03-2023 Cognitive function Cognitive Sta tus Patient at Baseline [facility] Work Phone: Clinical Notes 06-16-2021 to 12-21-2023 Note Date & Type Note Facility 12-21-2023 Note [facility] Subjective Mabel Moser is a 63 y.o. year old female patient being seen for 4 mo follow up HFpEF, hypertension, and mild pulmonary hypertension. Says she's fallen a few times since last visit in Jul 2023 and fractured her neck. She is no longer taking carvedilol, as she said it made her sick and put me into fluid overload . Entresto was started in its place she said. Denies chest pain, palpitations, and syncope. Says fall was due to fluid on the floor from her seeping legs. Patient Active Problem List Diagnosis Abnormal weight loss Acute sinusitis Amnesia Anxiety Other specified anxiety disorders Mitral valve regurgitation Pulmonic valve regurgitation Aortic valve regurgitation Arthritis of right knee Benign essential hypertension Bilateral hearing loss Chronic obstructive pulmonary disease ([facility]) CKD (chronic kidney disease) stage 3, GFR 30-59 ml/min ([facility]) Closed fracture of trochanter of femur ([facility]) Clostridium difficile colitis Coronary arteriosclerosis Diffuse thyroid 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 thyrotoxicosis Fluid overload Dehydration Cortical age-related cataract of left eye COVID-19 Displacement of lumbar intervertebral disc without myelopathy Edema of lower extremity Edema Orthopnea Dyspnea Endogenous obesity Essential tremor ACC/AHA stage C heart failure with preserved ejection fraction ([facility]) H/O gastric bypass Gouty arthropathy Gastroesophageal reflux disease Full thickness rotator cuff tear Fibromyalgia Low back pain Hip pain Hyperparathyroidism due to renal insufficiency ([facility]) Hypocalcemia Hypertensive disorder Hypoglycemia Hyponatremia Hypothyroidism Impingement syndrome of shoulder region Insomnia Anemia due to vitamin B12 deficiency Pulmonary hypertension ([facility]) Other fatigue Osteoarthritis of knee Morbid (severe) obesity due to excess calories ([facility]) Left atrial enlargement Lumbosacral neuritis Lumbosacral spondylosis without myelopathy Intractable migraine without status migrainosus Migraine Rheumatic tricuspid valve regurgitation Vitamin D deficiency Tympanic membrane perforation, right Transient ischemic attack Thoracic neuritis Tear of right rotator cuff Swallowing problem Sunburn of second degree Status post tympanoplasty Sprain of shoulder Seizure disorder ([facility]) Polyneuropathy associated with critical illness ([facility]) Polyneuropathy Osteoarthritis of spine with radiculopathy, lumbar region Obesity (BMI 30.0-34.9) Lumbar paraspinal muscle spasm Lateral femoral cutaneous neuropathy, left Internal derangement of right shoulder History of total right knee replacement Hemiparesis, left ([facility]) Hemiparesis due to old stroke ([facility]) Difficulty walking Depression Constipation Abnormal blood chemistry 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 ([facility]) Pre-operative cardiovascular examination Acute on chronic systolic CHF (congestive heart failure) ([facility]) History of CVA in adulthood Hyperkalemia Hypomagnesemia Metabolic acidosis RENETTA (acute kidney injury) ([facility]) Cardiorenal disease Acute heart failure ([facility]) Polypharmacy Cerebral artery occlusion with cerebral infarction ([facility]) Chronic CHF (congestive heart failure) ([facility]) Fall at home, initial encounter Irritable bowel syndrome Restless leg syndrome Traumatic closed fracture of C2 vertebra with minimal displacement, initial encounter ([facility]) Family History Family history unknown: Yes Social History Tobacco Use Smoking status: Never Smokeless tobacco: Never Substance Use Topics Alcohol use: Not Currently Drug use: Not Currently HPI Mabel is seen in follow-up. She is a 63-year-old woman with prior history of obesity status post bariatric surgery in 1999. In the past she was admitted to [facility] in 2019 with fluid overload and responded to diuresis. Prior evaluation included cardiac catheterization in 2016 that showed mild coronary artery disease with mildly elevated right-sided pressures and wedge pressure. She had normal ventricular function by echocardiography. Pulmonary VQ scan was negative for pulmonary embolism. She has history of DVT on Eliquis therapy. She has chronic diastolic heart failure. She has was seen in our office on 10/28/2022 and she was having headache and echocardiogram had shown severely elevated right-sided pressures [...] mild pulmonary hypertension. She was recommended to t (more content not included)... [facility] 08-16-2023 Note [facility] Electrophysiology Consult Note Reason for visit: HFU for acute CHF HPI: Mabel Moser is a 63 y.o. year old with past medical history of CHF, CKD IV, CAD, hypertension, GERD, hypothyroidism, CVA, seizure disorder, pulmonary hypertension, hx of DVT on eliquis. patient was admitted to [facility] for acute decompensated CHF 184# on scale at home, was 172# at [facility] but she feels well and appears compensated She is seeing lymph edema clinic twice a week, has follow up with foot specialist next week She has taken her PRN bumex dose once since discharge because she felt as though she did not have a lot of urine output that day but has improved since She is doing much better following fluid restriction of about 7454-6867 mls / day [facility] discharge summary 08/03/23 Hospital course: Mabel Moser is an 63 y.o. female who came from home with Past medical history of CHF, CKD IV, CAD, hypertension, GERD, hypothyroidism, CVA, seizure disorder, pulmonary hypertension, hx of DVT on eliquis presents to [facility] as a direct admission from [facility] with fluid overload. Patient reports worsening [...] Anxiety Arthritis Asthma CHF (congestive heart failure) ([facility]) Coronary artery disease Depression Gastroenteritis Heart valve disease Hypertension Kidney failure Lumbar spondylolysis Stroke ([facility]) PSH: Past Surgical History: Procedure [...] Year: No Utilities: Not At Risk (07/28/2023) [facility] Utilities Threatened with loss of utilities: [...] and with ev (more content not included)... [facility] 08-16-2023 Note Patient here for [facility] for CHF. Entresto was stopped and [...] All other systems reviewed and are negative. [facility] 08-03-2023 Note ---- Attestation signed by [...] stable. Patient is to follow-up with her foot specialist Navi Weems MD, PhD ---- Nephrology Progress [...] gastric bypass surgery who initially presented to [facility] with concerns for worsening lower extremity edema, after gaining 50 pounds within past week. Patient was evaluated by PCP who increased Bumex dose from 1 mg TID to 3 mg TID but patient had no improvement in symptoms. On presentation to [facility], patient's creatinine was 4.55 (baseline 1.8-2), phosphorus 11.2, potassium 5.7, magnesium 1.8, hemoglobin 9.2 and BUN 122. Patient was initiated on Bumex drip but developed hypotension and was changed to IV pushes. Patient was subsequently transferred to [facility] Upon assessment at [facility], patient has downtrend in Cr to [...] with meals desvenlafaxine, (more content not included)... [facility] 08-03-2023 Note Active with [facility] home care. Sent the AVS. [facility] 08-03-2023 Note Physical Therapy Physical Therapy [...] of cerebral infarction (CMS/HCC) Pre-operative cardiovascular examination Acute on chronic systolic CHF (congestive heart failure) (CMS/HCC) History of CVA in adulthood Hyperkalemia Hypomagnesemia Metabolic acidosis RENETTA (acute kidney injury) (CMS/HCC) Cardiorenal disease Past Medical History: Diagnosis Date Anxiety Arthritis Asthma CHF (congestive heart failure) (CMS/HCC) Coronary artery disease Depression Gastroenteritis Heart valve disease Hypertension Kidney failure Lumbar spondylolysis Stroke (CMS/HCC) Past Surgical History: Procedure Laterality Date APPENDECTOMY [...] shower Prior Level (more content not included)... [facility] 08-03-2023 Note Clinical Nutrition A ssessment: Name: Mabel Moser Room: [address] [place] [address] Date: 1960 Date of Visit: 08/03/23 Admission Dx: Acute on chronic systolic CHF (congestive heart failure) (CMS/HCC) [I50.23] Reason for assessment: length of stay Information obtained from: patient, medical record, and nursing Past Medical History: Diagnosis Date Anxiety Arthritis Asthma CHF (congestive heart failure) ([facility]) Coronary artery disease Depression Gastroenteritis Heart valve disease Hypertension Kidney failure Lumbar spondylolysis Stroke ([facility]) Current Medications: amitriptyline, 300 mg, [...] pt c/o dry mouth Abdominal Assessment: Last 07/31 Appetite: good Cognition: A/O x 4 [...] 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 Pt reported [...] Sensation: Tingling, Numbness LUE Sensation: Numbness, Tingling (Nurse Rn Bsn strength not assessed by RD) Patient at risk for malnutrition according to hospital criteria, but does not meet the clinical characteristics per the Academy of [employer] (more content not included)... [facility] 08-03-2023 Note Occupational Therapy Occupational Therapy [...] Bilateral hearing loss Chronic obstructive pulmonary disease ([facility]) CKD (chronic kidney disease) stage 3, GFR 30-59 ml/min ([facility]) Closed fracture of trochanter of femur ([facility]) Clostridium difficile colitis Coronary arteriosclerosis Diffuse thyroid 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 thyrotoxicosis Fluid overload Dehydration Cortical age-related cataract of left eye COVID-19 Displacement of lumbar intervertebral disc without myelopathy Edema of lower extremity Edema Orthopnea Dyspnea Endogenous obesity Essential tremor Chronic diastolic heart failure, NYHA class 2 ([facility]) H/O gastric bypass Gouty arthropathy Gastroesophageal reflux disease Full thickness rotator cuff tear Fibromyalgia Low back pain Hip pain Hyperparathyroidism due to renal insufficiency ([facility]) Hypocalcemia Hypertensive disorder Hypoglycemia Hyponatremia Hypothyroidism Impingement syndrome of shoulder region Insomnia Anemia due to vitamin B12 deficiency Pulmonary hypertension ([facility]) Other fatigue Osteoarthritis of knee Morbid (severe) obesity due to excess calories ([facility]) Left atrial enlargement Lumbosacral neuritis Lumbosacral spondylosis without myelopathy Intractable migraine without status migrainosus Migraine Rheumatic tricuspid valve regurgitation Vitamin D deficiency Tympanic membrane perforation, right Transient ischemic attack Thoracic neuritis Tear of right rotator cuff Swallowing problem Sunburn of second degree Status post tympanoplasty Sprain of shoulder Seizure disorder ([facility]) Polyneuropathy associated with critical illness ([facility]) Polyneuropathy Osteoarthritis of spine with radiculopathy, lumbar region Obesity (BMI 30.0-34.9) Lumbar paraspinal muscle spasm Lateral femoral cutaneous neuropathy, left Internal derangement of right shoulder History of total right knee replacement Hemiparesis, left ([facility]) Hemiparesis due to old stroke ([facility]) Difficulty walking Depression Constipation Abnormal blood chemistry 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 ([facility]) Pre-operative cardiovascular examination Acute on chronic systolic CHF (congestive heart failure) ([facility]) History of CVA in adulthood Hyperkalemia Hypomagnesemia Metabolic acidosis RENETTA (acute kidney injury) ([facility]) Cardiorenal disease Past Medical History: Diagnosis Date Anxiety Arthritis Asthma CHF (congestive heart failure) ([facility]) Coronary artery disease Depression Gastroenteritis Heart valve disease Hypertension Kidney failure Lumbar spondylolysis Stroke ([facility]) Past Surgical History: Procedure Laterality [...] Occasional cues for (more content not included)... [facility] 08-03-2023 Note Hospital Medicine Discharge Summary Final Discharge Diagnosis: Acute on chronic systolic CHF (congestive heart failure) ([facility]) RENETTA on CKD IV Cardiorenal syndrome Mild [...] hx of DVT on eliquis presents to [facility] as a direct admission from [facility] with fluid overload. Patient reports worsening [...] Center 08/08/2023 11:40 AM Macie Garcia NP [facility] Your medication list START taking [...] Medications These medications were sent to [facility] - [place], [place] - [address], [facility] [address] bumetanide 1 mg tablet carvedilol 6.25 mg tablet Mabel is allergic to betadine [povidone-iodine], cephalexin, ciprofloxacin, gabapentin, iodine, pregabalin, sulfa (sulfonamide antibiotics), sulfamethoxazole-trimethoprim, and amoxicillin-pot clavulanate. Disposition: [place] [place] [facility] [place] Discharge Condition: Stable Code Status: Full Code [...] displayed. Chemistry: Resul (more content not included)... [facility] 08-02-2023 Note ---- Attestation signed by [...] Patient : Mabel Moser; 63 y.o. Location: [facility]/5183- Attending: Rayray Mix MD Admit Date: 07/28/2023 Hospital Day: 5 Reason for Consult: Acute Renal Failure Subjective: History of present illness: aMbel Moser is a 63 y.o. female onCKD Stage V alpha-1 antitrypsin carrier, HFpEF, essential hypertension GERD, hypothyroidism, CVA, seizures, DVT on eliquis, morbid obesity s/p gastric bypass surgery who initially presented to [facility] with concerns for worsening lower extremity edema, after gaining 50 pounds within past week. Patient was evaluated by PCP who increased Bumex dose from 1 mg TID to 3 mg TID but patient had no improvement in symptoms. On presentation to [facility], patient's creatinine was 4.55 (baseline 1.8-2), phosphorus 11.2, potassium 5.7, magnesium 1.8, hemoglobin 9.2 and BUN 122. Patient was initiated on Bumex drip but developed hypotension and was changed to IV pushes. Patient was subsequently transferred to [facility] Upon assessment at [facility], patient has downtrend in Cr to [...] 100 mcg, or (more content not included)... [facility] 08-02-2023 Note Hospital Medicine Daily Progress Note - 08/02/2023 12:05 PM; Room: [address] [place] [address] Admission: 07/28/2023 4:37 PM; Length of stay: 5 days THE HOSPITALIST TEAM PREFERS TO USE [employer] CHAT FOR COMMUNICATION 7AM-7PM. IF I DO NOT RESPOND WITHIN 15 MINUTES, PLEASE PAGE ME/CALL THROUGH THE DIRECTOR OF STUDENT SERVICES. FROM 7PM-7AM, PLEASE PAGE [phone](COVR) Code Status: Full Code Barriers to Discharge: Renal failure Expected Discharge Date: pending diuretics optimization Discharge Destination: home Overview Patient is seen for evaluation and management of ARF. Subjective Mabel Hellerlorenrobert was seen and examined at bedside. currently [...] on chronic systolic CHF (congestive heart failure) ([facility]) Active Problems: Benign essential hypertension CKD (chronic kidney disease) stage 3, GFR 30-59 ml/min ([facility]) Coronary arteriosclerosis Gastroesophageal reflux disease Hypothyroidism Pulmonary hypertension ([facility]) Seizure disorder ([facility]) Obesity (BMI 30.0-34.9) History of CVA in adulthood Hyperkalemia Hypomagnesemia Metabolic acidosis RENETTA (acute kidney injury) ([facility]) Cardiorenal disease Assessment and Plan [...] -- PLATELETS AU (more content not included)... [facility] 08-02-2023 Note Subjective Follow up for: lower extremity edema with orthopnea, heart failure exacerbation. HPI: Mabel Moser is a 63 y.o. female with PMH of alpha-1 antitrypsin carrier, HFpEF, CKD 3A, HTN, GERD, hypothyroidism, CVA, seizures, DVT (on Eliquis at home), morbid obesity s/p gastric bypass surgery who initially presented to [facility] with concerns for bilateral worsening lower [...] duplex ultrasound. She was then transferred to [facility]. At [facility], her creatinine did improved slightly to 3.64, hemoglobin 8.5, troponin 0.01, BNP 265. She was initiated on IV Lasix 80 mg 3 times daily. Patient tells me that she did have a TTE performed at [facility] 2 months back but there [...] in the past she was admitted to [facility] in 2019 with fluid overload and [...] feels as though she is back to [facility] She denies CP, worsened SOB, [...] edema present. Sk (more content not included)... [facility] 08-01-2023 Note Subjective Follow up for: lower extremity edema with orthopnea, heart failure exacerbation. HPI: Mabel Moser is a 63 y.o. female with PMH of alpha-1 antitrypsin carrier, HFpEF, CKD 3A, HTN, GERD, hypothyroidism, CVA, seizures, DVT (on Eliquis at home), morbid obesity s/p gastric bypass surgery who initially presented to [facility] with concerns for bilateral worsening lower [...] duplex ultrasound. She was then transferred to [facility]. At [facility], her creatinine did improved slightly to 3.64, hemoglobin 8.5, troponin 0.01, BNP 265. She was initiated on IV Lasix 80 mg 3 times daily. Patient tells me that she did have a TTE performed at [facility] 2 months back but there [...] in the past she was admitted to [facility] in 2019 with fluid overload and [...] takes less t (more content not included)... [facility] 08-01-2023 Note ---- Attestation signed by [...] gastric bypass surgery who initially presented to [facility] with concerns for worsening lower extremity edema, after gaining 50 pounds within past week. Patient was evaluated by PCP who increased Bumex dose from 1 mg TID to 3 mg TID but patient had no improvement in symptoms. On presentation to [facility], patient's creatinine was 4.55 (baseline 1.8-2), phosphorus 11.2, potassium 5.7, magnesium 1.8, hemoglobin 9.2 and BUN 122. Patient was initiated on Bumex drip but developed hypotension and was changed to IV pushes. Patient was subsequently transferred to [facility] Upon assessment at [facility], patient has downtrend in Cr to [...] 100 mg, oral (more content not included)... [facility] 08-01-2023 Note 08/01/23 0973 Admission Assessment Questions Verify insurance with patient Yes ([facility] Medicare/[place] Medicaid) Do you understand medical disease or what brought you into the hospital? Yes ( I'm in kidney failure & I went into fluid overload ) Who is your current PCP? Angle Santana MD Can I schedule a follow up appointment for you at the time of discharge? No ( I go to [facility] for alot of my physicians ) Do you understand why you are taking your current medications? Yes Are you taking your medications as prescribed? Yes Did patient provide teach back? No Would you like use our pharmacy [facility] to fill your new medications at the time of Discharge? Yes Does the patient have a director of casework services assigned to them through their insurance? No [...] SNF? Yes (stated active with [facility], previously went to SNF about 8 hrs ago & also [facility] in [place]) Assistive Device Cane;Grab bars;Raised toilet seat;Walker;Wheelchair (has [...] sure this is a safe dc plan. [facility] 08-01-2023 Note ---- Attestation signed by [...] Progress Note - 08/01/2023 11:05 AM; Room: [address] [place] [address] Admission: 07/28/2023 4:37 PM; Length of stay: 4 days THE HOSPITALIST TEAM PREFERS TO USE [employer] CHAT FOR COMMUNICATION 7AM-7PM. IF I DO NOT RESPOND WITHIN 15 MINUTES, PLEASE PAGE ME/CALL THROUGH THE DIRECTOR OF STUDENT SERVICES. FROM 7PM-7AM, PLEASE PAGE [phone](COVR) Code Status: Full Code Barriers to Discharge: [...] on chronic systolic CHF (congestive heart failure) ([facility]) Active Problems: Benign essential hypertension CKD (chronic kidney disease) stage 3, GFR 30-59 ml/min ([facility]) Coronary arteriosclerosis Gastroesophageal reflux disease Hypothyroidism Pulmonary hypertension ([facility]) Seizure disorder ([facility]) Obesity (BMI 30.0-34.9) History of CVA in adulthood Hyperkalemia Hypomagnesemia Metabolic acidosis RENETTA (acute kidney injury) ([facility] Cardiorenal disease Assessment and Plan Acute decompensated [...] CAD, Continue h (more content not included)... [facility] 07-31-2023 Note ---- Attestation signed by [...] tomorrow. She has no urgent need for CLAY HOISTER, she will need to follow up with her foot specialist upon discharge. ---- Nephrology Progress Note Patient [...] gastric bypass surgery who initially presented to [facility] with concerns for worsening lower extremity edema, after gaining 50 pounds within past week. Patient was evaluated by PCP who increased Bumex dose from 1 mg TID to 3 mg TID but patient had no improvement in symptoms. On presentation to [facility], patient's creatinine was 4.55 (baseline 1.8-2), phosphorus 11.2, potassium 5.7, magnesium 1.8, hemoglobin 9.2 and BUN 122. Patient was initiated on Bumex drip but developed hypotension and was changed to IV pushes. Patient was subsequently transferred to [facility]. Upon assessment at [facility], patient has downtrend in Cr to [...] shifts: In: 1350 (16.3 mL/kg) [P.O.:1350] Out: 98755 (128.3 mL/kg) [Urine:42090 (3.6 mL/kg/hr)] Weight: 83 kg Vital signs: [...] oxyCODONE, Insert periph (more content not included)... [facility] 07-31-2023 Note Subjective Follow up for: lower extremity edema with orthopnea, heart failure exacerbation. HPI: Mabel Moser is a 63 y.o. female with PMH of alpha-1 antitrypsin carrier, HFpEF, CKD 3A, HTN, GERD, hypothyroidism, CVA, seizures, DVT (on Eliquis at home), morbid obesity s/p gastric bypass surgery who initially presented to [facility] with concerns for bilateral worsening lower [...] duplex ultrasound. She was then transferred to [facility]. At [facility], her creatinine did improved slightly to 3.64, hemoglobin 8.5, troponin 0.01, BNP 265. She was initiated on IV Lasix 80 mg 3 times daily. Patient tells me that she did have a TTE performed at [facility] 2 months back but there [...] in the past she was admitted to [facility] in 2019 with fluid overload and [...] Psychiatric: Mood an (more content not included)... [facility] 07-31-2023 Note Pt admitted to [facility] for acute on chronic systolic HF; hx of CHF, CKD 3, CAD, hypertension, GERD, hypothyroidism, CVA, seizure disorder, pulmonary hypertension, hx of DVT. Pt has echo scheduled. I will wait for current echo results to determine pt's eligibility to participate in cardiac rehab (CR) therapy with HF diagnosis and follow up with pt, if appropriate. 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 07-31-2023 Note [facility] Medicine Daily Progress Note - 07/31/2023 10:40 AM; Room: [address] [place] [address] Admission: 07/28/2023 4:37 PM; Length of stay: 3 days THE HOSPITALIST TEAM PREFERS TO USE [employer] CHAT FOR COMMUNICATION 7AM-7PM. IF I DO NOT RESPOND WITHIN 15 MINUTES, PLEASE PAGE ME/CALL THROUGH THE DIRECTOR OF STUDENT SERVICES. FROM 7PM-7AM, PLEASE PAGE [phone](COVR) Code Status: Full Code Barriers to Discharge: Renal failure Expected Discharge Date: ~08/02? Discharge Destination: home Overview Patient is seen for evaluation and management of ARF. Subjective Mabel Haynes Larobert was seen and examined at bedside. Diuresing [...] on chronic systolic CHF (congestive heart failure) ([facility]) Active Problems: Benign essential hypertension CKD (chronic kidney disease) stage 3, GFR 30-59 ml/min ([facility]) Coronary arteriosclerosis Gastroesophageal reflux disease Hypothyroidism Pulmonary hypertension ([facility]) Seizure disorder ([facility]) History of CVA in adulthood Hyperkalemia Hypomagnesemia Metabolic acidosis RENETTA (acute kidney injury) ([facility]) Cardiorenal disease Assessment and Plan [...] INR -- -- 1.15* Chemistry: Results from [facility] (more content not included)... [facility] 07-30-2023 Note ---- Attestation signed by [...] bid from tid. No urgent need for CLAY HOISTER, will continue to follow along. ---- Nephrology [...] gastric bypass surgery who initially presented to [facility] with concerns for worsening lower extremity edema, after gaining 50 pounds within past week. Patient was evaluated by PCP who increased Bumex dose from 1 mg TID to 3 mg TID but patient had no improvement in symptoms. On presentation to [facility], patient's creatinine was 4.55 (baseline 1.8-2), phosphorus 11.2, potassium 5.7, magnesium 1.8, hemoglobin 9.2 and BUN 122. Patient was initiated on Bumex drip but developed hypotension and was changed to IV pushes. Patient was subsequently transferred to [facility] Upon assessment at [facility], patient has downtrend in Cr to [...] lock IV AND* (more content not included)... [facility] 07-30-2023 Note Subjective Reason for Consult: Bilaterally worsening lower extremity edema with orthopnea, concerning for heart failure exacerbation. HPI: Mabel Moser is a 63 y.o. female with PMH of alpha-1 antitrypsin carrier, HFpEF, CKD 3A, HTN, GERD, hypothyroidism, CVA, seizures, DVT (on Eliquis at home), morbid obesity s/p gastric bypass surgery who initially presented to [facility] with concerns for bilateral worsening lower [...] duplex ultrasound. She was then transferred to [facility]. At [facility], her creatinine did improved slightly to 3.64, hemoglobin 8.5, troponin 0.01, BNP 265. She was initiated on IV Lasix 80 mg 3 times daily. Patient tells me that she did have a TTE performed at [facility] 2 months back but there [...] in the past she was admitted to [facility] in 2019 with fluid overload and [...] is cooperative. Thought (more content not included)... [facility] 07-30-2023 Note [facility] Medicine Daily Progress Note - 07/30/2023 8:15 AM; Room: [address] [place] [address] Admission: 07/28/2023 4:37 PM; Length of stay: 2 days THE HOSPITALIST TEAM PREFERS TO USE [employer] FOR COMMUNICATION 7AM-7PM. IF I DO NOT RESPOND WITHIN 15 MINUTES, PLEASE PAGE ME/CALL THROUGH THE DIRECTOR OF STUDENT SERVICES. FROM 7PM-7AM, PLEASE PAGE [phone](COVR) Code Status: Full Code Barriers to Discharge: Renal failure Expected Discharge Date: ~08/02? Discharge Destination: home Overview Patient is seen for evaluation and management of ARF. Marry Mabel Ivy Tovarrobert was seen and examined [...] on chronic systolic CHF (congestive heart failure) ([facility]) Active Problems: Benign essential hypertension CKD (chronic kidney disease) stage 3, GFR 30-59 ml/min ([facility]) Coronary arteriosclerosis Gastroesophageal reflux disease Hypothyroidism Pulmonary hypertension ([facility]) Seizure disorder ([facility]) History of CVA in adulthood Hyperkalemia Hypomagnesemia Metabolic acidosis RENETTA (acute kidney injury) [facility] [place]) Assessment and Plan Acute decompensated [...] meals Pertinent Invest (more content not included)... [facility] 07-29-2023 Note Hospital Medicine Daily Progress Note - 07/29/2023 4:06 PM; Room: [facility]/5183- Admission: 07/28/2023 4:37 PM; Length of stay: 1 days THE HOSPITALIST TEAM PREFERS TO USE [employer] FOR COMMUNICATION 7AM-7PM. IF I DO NOT RESPOND WITHIN 15 MINUTES, PLEASE PAGE ME/CALL THROUGH THE DIRECTOR OF STUDENT SERVICES. FROM 7PM-7AM, PLEASE PAGE [phone](COVR) Code Status: Full Code Barriers to Discharge: [...] on chronic systolic CHF (congestive heart failure) ([facility]) Active Problems: Benign essential hypertension CKD (chronic kidney disease) stage 3, GFR 30-59 ml/min ([facility]) Coronary arteriosclerosis Gastroesophageal reflux disease Hypothyroidism Pulmonary hypertension ([facility]) Seizure disorder ([facility]) History of CVA in adulthood [...] 1.15* -- -- (more content not included)... [facility] 07-28-2023 Note Hospital Medicine History and Physical 07/28/2023 6:16 PM THE HOSPITALIST TEAM PREFERS TO USE [employer] CHAT FOR COMMUNICATION 7AM-7PM. IF I DO NOT RESPOND WITHIN 15 MINUTES, PLEASE PAGE ME/CALL THROUGH THE DIRECTOR OF STUDENT SERVICES. FROM 7PM-7AM, PLEASE PAGE [phone](COVR) Chief Complaint Direct admission with fluid overload History of Present Illness Mabel Moser is an 63 y.o. female who came from home with Past medical history of CHF, CKD 3, CAD, hypertension, GERD, hypothyroidism, CVA, seizure disorder, pulmonary hypertension, hx of DVT on eliquis presents to [facility] as a direct admission from [facility] with fluid overload. Patient reports worsening bilateral lower extremity edema over the last week. Reports a 50 pound weight gain within that same time period. States that she saw her PCP as well as her street inspector this past week who increased her Bumex to 3 mg 3 times daily without relief. Patient saw her PCP yesterday who sent her directly to [facility] for IV diuresis. Upon arrival there, patient [...] her normal limit, patient was transferred to [facility] for higher level of care. Upon arrival to [facility] repeat labs are completed showing pH 7.28, hemoglobin 8.5, magnesium 1.6, BUN 109, creatinine 3.64, BNP 265. Spoke with foot specialist on the phone as patient with persistent [...] on chronic systolic CHF (congestive heart failure) ([facility]) 07/28/2023 Polyneuropathy associated with critical illness ([facility]) 11/27/2022 Polyneuropathy 11/27/2022 Osteoarthritis of spine with radiculopathy, lumbar region 11/27/2022 Obesity (BMI 30-39.9) 11/27/2022 Lumbar paraspinal muscle spasm 11/27/2022 Lateral femoral cutaneous neuropathy, left 11/27/2022 Internal derangement of right shoulder 11/27/2022 History of total right knee replacement 11/27/2022 Hemiparesis, left ([facility]) 11/27/2022 Hemiparesis due to old stroke ([facility]) 11/27/2022 Dif (more content not included)... [facility] 07-13-2023 Note [place] Cardiology - [facility] Subjective Mabel Moser is a 63 y.o. year old female patient being seen for 6 mo follow up chronic diastolic heart failure, CKD, and CAD. Says she saw Dr. Santana yesterday and he raised her spironolactone to 100mg, which she takes PRN. 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 thyrotoxicosis Fluid overload Dehydration Cortical age-related cataract of left eye COVID-19 Displacement of lumbar intervertebral disc without myelopathy Edema of lower extremity Edema Orthopnea Dyspnea Endogenous obesity Essential tremor Chronic diastolic heart failure, NYHA class 2 ([facility]) H/O gastric bypass Gouty arthropathy Gastroesophageal reflux disease Full thickness rotator cuff tear Fibromyalgia Low back pain Hip pain Hyperparathyroidism due to renal insufficiency ([facility]) Hypocalcemia Hypertensive disorder Hypoglycemia Hyponatremia Hypothyroidism Impingement syndrome of shoulder region Insomnia Anemia due to vitamin B12 deficiency Pulmonary hypertension ([facility]) Other fatigue Osteoarthritis of knee Morbid (severe) [...] In the past she was admitted to [facility] in 2019 with fluid overload and [...] reviewed and a (more content not included)... [facility] 07-03-2023 Progress note Note Date/Time July 03, 2023 12:18pm [facility] [address] [place] [address] Nephrology Progress Note Signed Patient: Mabel Moser MR#: [id number] : 1960 Acct:[id number] Age/Sex: 63 / F Adm Date: 4 Loc: Room: [address] [place] [address] Type: ADM IN Attending Dr: Jim Randhawa [...] 1620 2049 / 2049 500 / 500 Weight 88 kg [...] 2 Mg Tablet) 2 mg PO DAILY [facility] Stop: 06/29/24 08:59 Last Admin: 07/03/23 08:13 Dose: 2 mg Bisacodyl (Bisacodyl 5 Mg Tablet.) 10 mg PO DAILY PRN PRN Reason: Constipation Stop: 06/28/24 21:34 Bumetanide (Bumetanide 1 Mg/4 Ml Vial) 1 mg IV-PUSH BID@0800,1600 [facility] Stop: 06/29/24 07:59 Last Admin: 07/03/23 08:14 Dose: 1 mg Calcium Acetate (Calcium Acetate 667 Mg Capsule) 667 mg PO BID.WITH.MEALS [facility] Stop: 06/29/24 07:59 Last Admin: 07/03/23 08:13 Dose: 667 mg Duloxetine HCl (Duloxetine 60 Mg Capsule.) 120 mg PO DAILY [facility] Stop: 06/29/24 08:59 Last Admin: 07/03/23 08:13 Dose: 120 mg Fentanyl (Fentanyl Patch 100 Mcg/Hour Patch.Td72) 100 mcg TRANSDERML Q72H [facility]; Protocol Last Admin: 07/03/23 08:12 Dose: 100 mcg Ferrous Sulfate (Ferrous Sulfate 324 Mg Tablet.) 324 mg PO DAILY [facility] Stop: 06/29/24 08:59 Last Admin: 07/03/23 08:13 Dose: 324 mg Gabapentin (Gabapentin 100 Mg Capsule) 100 mg PO TID [facility] Stop: 06/29/24 08:59 Last Admin: 07/03/23 08:13 Dose: 100 mg Guaifenesin/Dextromethorphan (Guaif/Dextromethorphan Syrup 10 Ml Udc) 10 ml PO Q8H PRN PRN Reason: Cough Stop: 06/28/24 21:34 Heparin Sodium (Porcine) (Heparin 5,000 Unit/Ml Vial) 5,000 unit SUBCUT Q12HR [facility] Stop: 06/29/24 08:59 Last Admin: 07/03/23 08:14 Dose: 5,000 unit Levothyroxine Sodium (Levothyroxine 100 Mcg Tablet) 100 mcg PO DAILY@0630 [facility] Stop: 06/29/24 06:29 Last Admin: 07/03/23 06:23 Dose: 100 mcg Linaclotide (Linaclotide 290 Mcg Capsule) 290 mcg PO Q48HR [facility] Stop: 06/29/24 08:59 Last Admin: 07/02/23 08:59 Dose: 290 mcg Liothyronine Sodium (Liothyronine 25 Mcg Tablet) 25 mcg PO DAILY@0630 [facility] Stop: 06/29/24 10:59 Last Admin: 07/03/23 06:23 Dose: 25 mcg Loratadine (Loratadine 10 Mg Tablet) 10 mg PO DAILY PRN PRN Reason: Allergy Symptoms Stop: 06/29/24 06:54 Melatonin (Melatonin 5 Mg Tablet) 5 mg PO QHS PRN PRN Reason: Insomnia Stop: 06/28/24 21:34 Metoprolol Tartrate (Metoprolol Tartrate 25 Mg Tablet) 25 mg PO BID [facility] Stop: 06/29/24 20:59 Last Admin: 07/03/23 08:14 Dose: 25 mg Ondansetron HCl (Ondansetron 4 Mg/2 Ml Vial) 4 mg IV-PUSH Q8H PRN PRN Reason: Nausea And Vomiting Stop: 06/28/24 21:34 Oxycodone/Acetaminophen (Oxycodone/Acetaminophen 5-325 Mg Tablet) 2 tab PO Q6H PRN PRN Reason: Pain Last Admin: 07/03/23 11:25 Dose: 2 tab Pantoprazole Sodium (Pantoprazole 40 Mg Tablet.Dr) 40 mg PO BID [facility] Stop: 06/29/24 08:59 Last Admin: 07/03/23 08:13 Dose: 40 mg Primidone (Primidone 50 Mg Tablet) 100 mg PO HS [facility] Stop: 06/29/24 21:59 Last Admin: 07/02/23 21:00 Dose: 100 mg Sevelamer Carbonate (Sevelamer Carbonate 800 Mg Tablet) 800 mg PO TID.WITH.MEALS [facility] Stop: 06/29/24 11:59 Last Admin: 07/03/23 11:22 [...] signed by Raeann Kirkpatrick MD> 07/03/23 1218 [facility] Work Phone: [phone]) 832-995601-07-2024 Progress note Author Jim Randhawa [facility] July 02, 2023 11:26am Note Date/Time July 02, 2023 11 :26am [facility] [address] [place] [address] Hospitalist Progress Note Signed Patient: Mabel Moser MR#: [id number] : 1960 Acct:[id number] Age/Sex: 63 / F Adm Date: 4 Loc: Room: [address] [place] [address] Type: ADM IN Attending Dr: Jim Randhawa [...] PRN Constipation Bumetanide 1 mg 06/30/23 08:00 01/07/24 08:55 Bumetanide 1 Mg/4 Ml Vial IV-PUSH [...] Heparin subcu Documented By: Jim Radnhawa DO 07/02/23 1123 Signed By: <Electronically signed by Jim Randhawa DO> 07/02/23 1126 [facility] Work Phone: 1(234) 873-254001-07-2024 [facility] July 02, 2023 10:42am Note Date/Time July 02, 2023 10 :42am [facility] [address] [place] [address] Nephrology Progress Note Signed Patient: Mabel Moser MR#: [id number] : 1960 Acct:[id number] Age/Sex: 63 / F Adm Date: 4 Loc: Room: [address] [place] [address] Type: ADM IN Attending Dr: Jim Randhawa [...] 50 Mg Tablet) 150 mg PO QHS [facility] Stop: 06/29/24 21:59 Last Admin: 07/01/23 21:21 Dose: 150 mg Aripiprazole (Aripiprazole 2 Mg Tablet) 2 mg PO DAILY [facility] Stop: 06/29/24 08:59 Last Admin: 07/02/23 08:55 Dose: 2 mg Bisacodyl (Bisacodyl 5 Mg Tablet.) 10 mg PO DAILY PRN PRN Reason: Constipation Stop: 06/28/24 21:34 Bumetanide (Bumetanide 1 Mg/4 Ml Vial) 1 mg IV-PUSH BID@0800,1600 [facility] Stop: 06/29/24 07:59 Last Admin: 07/02/23 08:55 Dose: 1 mg Calcium Acetate (Calcium Acetate 667 Mg Capsule) 667 mg PO BID.WITH.MEALS [facility] Stop: 06/29/24 07:59 Last Admin: 07/02/23 08:55 Dose: 667 mg Duloxetine HCl (Duloxetine 60 Mg Capsule.) 120 mg PO DAILY [facility] Stop: 06/29/24 08:59 Last Admin: 07/02/23 08:59 Dose: 120 mg Fentanyl (Fentanyl Patch 100 Mcg/Hour Patch.Td72) 100 mcg TRANSDERML Q72H [facility]; Protocol Last Admin: 06/30/23 09:31 Dose: 100 mcg Ferrous Sulfate (Ferrous Sulfate 324 Mg Tablet.) 324 mg PO DAILY [facility] Stop: 06/29/24 08:59 Last Admin: 07/02/23 08:55 Dose: 324 mg Gabapentin (Gabapentin 100 Mg Capsule) 100 mg PO TID [facility] Stop: 06/29/24 08:59 Last Admin: 07/02/23 08:55 Dose: 100 mg Guaifenesin/Dextromethorphan (Guaif/Dextromethorphan Syrup 10 Ml Udc) 10 ml PO Q8H PRN PRN Reason: Cough Stop: 06/28/24 21:34 Heparin Sodium (Porcine) (Heparin 5,000 Unit/Ml Vial) 5,000 unit SUBCUT Q12HR [facility] Stop: 06/29/24 08:59 Last Admin: 07/02/23 08:55 Dose: 5,000 unit Levothyroxine Sodium (Levothyroxine 100 Mcg Tablet) 100 mcg PO DAILY@0630 [facility] Stop: 06/29/24 06:29 Last Admin: 07/02/23 05:48 Dose: 100 mcg Linaclotide (Linaclotide 290 Mcg Capsule) 290 mcg PO Q48HR [facility] Stop: 06/29/24 08:59 Last Admin: 07/02/23 08:59 Dose: 290 mcg Liothyronine Sodium (Liothyronine 25 Mcg Tablet) 25 mcg PO DAILY@0630 [facility] Stop: 06/29/24 10:59 Last Admin: 07/02/23 05:48 Dose: 25 mcg Loratadine (Loratadine 10 Mg Tablet) 10 mg PO DAILY PRN PRN Reason: Allergy Symptoms Stop: 06/29/24 06:54 Melatonin (Melatonin 5 Mg Tablet) 5 mg PO QHS PRN PRN Reason: Insomnia Stop: 06/28/24 21:34 Metoprolol Tartrate (Metoprolol Tartrate 25 Mg Tablet) 25 mg PO BID [facility] Stop: 06/29/24 20:59 Last Admin: 07/02/23 08:55 Dose: 25 mg Ondansetron HCl (Ondansetron 4 Mg/2 Ml Vial) 4 mg IV-PUSH Q8H PRN PRN Reason: Nausea And Vomiting Stop: 06/28/24 21:34 Oxycodone/Acetaminophen (Oxycodone/Acetaminophen 5-325 Mg Tablet) 2 tab PO Q6H PRN PRN Reason: Pain Last Admin: 07/02/23 02:00 Dose: 2 tab Pantoprazole Sodium (Pantoprazole 40 Mg Tablet.Dr) 40 mg PO BID [facility] Stop: 06/29/24 08:59 Last Admin: 07/02/23 08:55 Dose: 40 mg Primidone (Primidone 50 Mg Tablet) 100 mg PO HS [facility] Stop: 06/29/24 21:59 Last Admin: 07/01/23 21:21 Dose: 100 mg Sevelamer Carbonate (Sevelamer Carbonate 800 Mg Tablet) 800 mg PO TID.WITH.MEALS [facility] Stop: 06/29/24 11:59 Last Admin: 07/02/23 08:55 [...] signed by MD Los Grissom> 07/02/23 1042 [facility] Work Phone: [phone] 801-336601-06-2024 Progress note Author Jim Randhawa [facility] July 01, 2023 1:52pm Note Date/Time July 01, 2023 1: 37pm [facility] [address] [place] [address] Hospitalist Progress Note Signed Patient: Mabel Moser MR#: [id number] : 1960 Acct:[id number] Age/Sex: 63 / F Adm Date: 4 Loc: Room: [address] [place] [address] Type: ADM IN Attending Dr: Jim Randhawa [...] Tablet PO 06/29/24 08:59 2 mg DAILY [facility] Administration Bisacodyl 10 mg 06/29/23 21:35 Bisacodyl [...] <Electronically signed by Jim Randhawa DO> 07/01/23 1212 [facility] Work Phone: 1([phone]) 262-849601-06-2024 Progress note Author Los Grissom [facility] July 01, 2023 10:16am Note Date/Time July 01, 2023 10 :16am [facility] [address] [place] [address] Nephrology Progress Note Signed Patient: Mabel Moser MR#: [id number] : 1960 Acct:[id number] Age/Sex: 63 / F Adm Date: 4 Loc: Room: [address] [place] [address] Type: ADM IN Attending Dr: Jim Randhawa [...] QHS [facility] Stop: 06/29/24 21:59 Last Admin: 06/30/23 21:17 Dose: 150 mg Aripiprazole (Aripiprazole 2 Mg Tablet) 2 mg PO DAILY [facility] Stop: 06/29/24 08:59 Last Admin: 07/01/23 08:21 Dose: 2 mg Bisacodyl (Bisacodyl 5 Mg Tablet.) 10 mg PO DAILY PRN PRN Reason: Constipation Stop: 06/28/24 21:34 Bumetanide (Bumetanide 1 Mg/4 Ml Vial) 1 mg IV-PUSH BID@0800,1600 [facility] Stop: 06/29/24 07:59 Last Admin: 07/01/23 08:21 Dose: 1 mg Calcium Acetate (Calcium Acetate 667 Mg Capsule) 667 mg PO BID.WITH.MEALS [facility] Stop: 06/29/24 07:59 Last Admin: 07/01/23 08:20 Dose: 667 mg Duloxetine HCl (Duloxetine 60 Mg Capsule.) 120 mg PO DAILY [facility] Stop: 06/29/24 08:59 Last Admin: 07/01/23 08:20 Dose: 120 mg Fentanyl (Fentanyl Patch 100 Mcg/Hour Patch.Td72) 100 mcg TRANSDERML Q72H [facility]; Protocol Last Admin: 06/30/23 09:31 Dose: 100 mcg Ferrous Sulfate (Ferrous Sulfate 324 Mg Tablet.) 324 mg PO DAILY [facility] Stop: 06/29/24 08:59 Last Admin: 07/01/23 08:20 Dose: 324 mg Gabapentin (Gabapentin 100 Mg Capsule) 100 mg PO TID [facility] Stop: 06/29/24 08:59 Last Admin: 07/01/23 08:20 Dose: 100 mg Guaifenesin/Dextromethorphan (Guaif/Dextromethorphan Syrup 10 Ml Udc) 10 ml PO Q8H PRN PRN Reason: Cough Stop: 06/28/24 21:34 Heparin Sodium (Porcine) (Heparin 5,000 Unit/Ml Vial) 5,000 unit SUBCUT Q12HR [facility] Stop: 06/29/24 08:59 Last Admin: 07/01/23 08:21 Dose: 5,000 unit Levothyroxine Sodium (Levothyroxine 100 Mcg Tablet) 100 mcg PO DAILY@0630 [facility] Stop: 06/29/24 06:29 Last Admin: 07/01/23 05:46 Dose: 100 mcg Linaclotide (Linaclotide 290 Mcg Capsule) 290 mcg PO Q48HR [facility] Stop: 06/29/24 08:59 Last Admin: 06/30/23 09:33 Dose: 290 mcg Liothyronine Sodium (Liothyronine 25 Mcg Tablet) 25 mcg PO DAILY@0630 [facility] Stop: 06/29/24 10:59 Last Admin: 07/01/23 05:46 Dose: 25 mcg Loratadine (Loratadine 10 Mg Tablet) 10 mg PO DAILY PRN PRN Reason: Allergy Symptoms Stop: 06/29/24 06:54 Melatonin (Melatonin 5 Mg Tablet) 5 mg PO QHS PRN PRN Reason: Insomnia Stop: 06/28/24 21:34 Metoprolol Tartrate (Metoprolol Tartrate 25 Mg Tablet) 25 mg PO BID [facility] Stop: 06/29/24 20:59 Last Admin: 07/01/23 08:20 Dose: 25 mg Ondansetron HCl (Ondansetron 4 Mg/2 Ml Vial) 4 mg IV-PUSH Q8H PRN PRN Reason: Nausea And Vomiting Stop: 06/28/24 21:34 Oxycodone/Acetaminophen (Oxycodone/Acetaminophen 5-325 Mg Tablet) 2 tab PO Q6H PRN PRN Reason: Pain Last Admin: 07/01/23 03:35 Dose: 2 tab Pantoprazole Sodium (Pantoprazole 40 Mg Tablet.Dr) 40 mg PO BID [facility] Stop: 06/29/24 08:59 Last Admin: 07/01/23 08:21 Dose: 40 mg Primidone (Primidone 50 Mg Tablet) 100 mg PO HS [facility] Stop: 06/29/24 21:59 Last Admin: 06/30/23 21:17 Dose: 100 mg Sevelamer Carbonate (Sevelamer Carbonate 800 Mg Tablet) 800 mg PO TID.WITH.MEALS [facility] Stop: 06/29/24 11:59 Last Admin: 07/01/23 08:20 [...] signed by MD Los Grissom> 07/01/23 1016 [facility] Work Phone: [phone]) 463-458501-05-2024 Progress note Author Jim Randhawa [facility] June 30, 2023 1:13pm Note Date/Time June 30, 2023 1: 13pm [facility] [address] [place] [address] Hospitalist Progress Note Signed Patient: Mabel Moser MR#: [id number] : 1960 Acct:[id number] Age/Sex: 63 / F Adm Date: 4 Loc: 3T Room: [address] [place] [address] Type: ADM IN Attending Dr: Jim Randhawa [...] signed by Jim Randhawa DO> 06/30/23 1313 [facility] Work Phone: [phone] 623-289601-05-2024 Consult note Author Los Grissom [facility] June 30, 2023 10:45am Note Date/Time June 30, 2023 10 :26am [facility] [address] [place] [address] Nephrology Consult Note Signed Patient: Mabel Moser MR#: [id number] : 1960 Acct:[id number] Age/Sex: 63 / F Adm Date: 4 Loc: Room: [address] [place] [address] Type: ADM IN Attending Dr: Jim Randhawa DO Copies to: MD Los Mensah MD Shawn J Warner, DO~ Providers Consult Date: 06/30/23 Requesting Provider: Jim Randhawa DO Primary Care Provider: Angle Santana MD [facility] Reason for Consult: RENETTA with creatinine 3.16 [...] and no additional complaints, except as documented [facility] Medical History CAD (coronary artery disease) Concepcion [...] Mg/4 Ml Vial) 1 mg IV-PUSH BID@0800,1600 [facility] Stop: 06/29/24 07:59 Last Admin: 06/30/23 09:31 Dose: 1 mg Calcium Acetate (Calcium Acetate 667 Mg Capsule) 667 mg PO BID.WITH.MEALS [facility] Stop: 06/29/24 07:59 Last Admin: 06/30/23 09:30 Dose: 667 mg Duloxetine HCl (Duloxetine 60 Mg Capsule.) 120 mg PO DAILY [facility] Stop: 06/29/24 08:59 Last Admin: 06/30/23 09:30 Dose: 120 mg Escitalopram Oxalate (Escitalopram 20 Mg Tablet) 20 mg PO DAILY [facility] Stop: 06/29/24 08:59 Last Admin: 06/30/23 09:31 Dose: 20 mg Fentanyl (Fentanyl Patch 100 Mcg/Hour Patch.Td72) 100 mcg TRANSDERML Q72H [facility]; Protocol Last Admin: 06/30/23 09:31 Dose: 100 mcg Ferrous Sulfate (Ferrous Sulfate 324 Mg Tablet.) 324 mg PO DAILY [facility] Stop: 06/29/24 08:59 Last Admin: 06/30/23 09:31 Dose: 324 mg Gabapentin (Gabapentin 100 Mg Capsule) 100 mg PO TID [facility] Stop: 06/29/24 08:59 Last Admin: 06/30/23 09:31 Dose: 100 mg Guaifenesin/Dextromethorphan (Guaif/Dextromethorphan Syrup 10 Ml Udc) 10 ml PO Q8H PRN PRN Reason: Cough Stop: 06/28/24 21:34 Heparin Sodium (Porcine) (Heparin 5,000 Unit/Ml Vial) 5,000 unit SUBCUT Q12HR [facility] Stop: 06/29/24 08:59 Last Admin: 06/30/23 09:32 Dose: 5,000 unit Levothyroxine Sodium (Levothyroxine 100 Mcg Tablet) 100 mcg PO DAILY@0630 [facility] Stop: 06/29/24 06:29 Last Admin: 06/30/23 05:55 Dose: 100 mcg Linaclotide (Linaclotide 290 Mcg Capsule) 290 mcg PO Q48HR [facility] Stop: 06/29/24 08:59 Last Admin: 06/30/23 09:33 Dose: 290 mcg Liothyronine Sodium (Liothyronine 25 Mcg Tablet) 25 mcg PO DAILY [facility] Stop: 06/29/24 08:59 Loratadine (Loratadine 10 Mg [...] 40 Mg Tablet.Dr) 40 mg PO BID [facility] Stop: 06/29/24 08:59 Last Admin: 06/30/23 09:31 Dose: 40 mg Primidone (Primidone 50 Mg Tablet) 100 mg PO HS [facility] Stop: 06/29/24 21:59 Sevelamer Carbonate (Sevelamer Carbonate 800 Mg Tablet) 800 mg PO TID [facility] Stop: 06/29/24 08:59 Tizanidine HCl (Tizanidine 4 [...] signed by MD Los Grissom> 06/30/23 1045 [facility] Work Phone: 1(858) 974-840001-04-2024 History and physical note Author Beatriz Oh [facility] June 29, 2023 9:51pm Note Date/Time June 29, 2023 9: 47pm [facility] [address] [place] [address] Hospitalist H&P Signed Patient: Mabel Moser MR#: [id number] : 1960 Acct:[id number] Age/Sex: 63 / F Adm Date: 4 Loc: Room: [address] [place] [address] Type: ADM IN Attending Dr: Papito Garces [...] She denies having dysuria, hematuria, or frequency. [facility] Medical History CAD (coronary artery disease) Concepcion [...] mg PO BID 08/31/18 [History Confirmed 10/28/22] ldzrysqi-geiufoy-tirl-iron fum 18 mg-folic 600 mcg-vit K 80 [...] TID PRN Edema 10/28/22 [History Confirmed 10/28/22] qonpoespgf-uftfqpvpvirwd-pwepronr 50 mg-325 mg-40 mg capsule 1 cap [...] signed by Beatriz Oh MD> 06/29/23 215 [facility] Work Phone: 1(298) 287-303010-10-2023 Evaluation note* Encounter Date Diagnosis Assessment Notes [...] Advised the patient to follow with [facility] neurology clinic [place], Chronic kidney disea se, [...] (ICD-10 - E83.39) Continue [employer]os[employer] with meals [employer] Other [id number] NoteRemains stable without worsening symptomsUnPremier Health [facility]08-30-2023 NoteCoronary artery disease is stable Continue GDMT continue risk factor modifications- heart healthy diet, regular exercise as tolerated and continue all medications.[facility] 02-22-2023 NoteNYHC II Continue GDMT- entresto- metoprolol and aldactone have been dc's r/t hypotension. Diuretic therapy- bumex 2 mg bid- Monitor daily weights, I&O, fluid restriction 1.5-2L/day, renal function and electrolytes- please maintain K+>4 and Mg > 2UnPremier Health [facility] 02-22-2023 NoteRCRI- 0???points Class I Risk 3.9???% 30-day risk of , AR, or cardiac arrest From a cardiology perspective pt may proceed with Total knee arthroplasty with Dr Dennis, she is a low to moderate risk for a low to mod risk orthopedic surgery. She does not take any Aspirin, or anticoagulation. Please monitor hemodynamics carefully and prevent any major fluid shifts.[facility]08-30-2023 NotePatient here for 2 mo follow up pulmonary hypertension and hypertension. She was admitted to [facility] twice this past month. She needs cleared for knee replacement surgery with Dr. Dennis. Denies chest pain, lightheadedness, and palpitations. Says SOB is improving. Review of Systems Constitutional: Positive for malaise/fatigue. Cardiovascular: Positive for dyspnea on exertion (improving). Musculoskeletal: Positive for arthritis, back pain and joint pain. All other systems reviewed and are negative.[facility] 02-22-2023 NoteUTP CARDIOLOGY PROGRESS NOTE HPI: Mabel Moser is a 62 y.o. female here for pre surgery risk stratification Patient here for 2 mo follow up pulmonary hypertension and hypertension. She was admitted to [facility] twice this past month. She needs cleared [...] is alert and or (more content not included)...[facility]08-24-2023 NoteSubjective: Patient ID: Mabel Moser is [...] History: Diagnosis Date CHF (congestive heart failure) ([facility]) Coronary artery disease Heart valve [...] intact to light touch distally Imaging: Where: [facility] Date: 01/13/2023 x-ray left knee(s) : Images [...] requested to proceed with surgery. Oneal Downey, [address] of [facility] 02/16/23 As the teaching physician, I have personally performed or re-performed the history of present illness, physical exam and medical decision-making activities of the encounter and verified the medical student's documentation. I made pertinent changes as necessary to ensure accurate documentation. Additional Comments: [facility]04-04-2023 Evaluation note* Encounter Date Diagnosis Assessment Notes [...] Patient is going to discuss with Dr. Esther mack fludrocortisone I would continue same blood pressure [...] Advised the patient to follow with [facility]y [facility] [email or web address] [facility] [employer] Other 03-28-2023 NoteThe [id number] Evaluation note* Encounter Date Diagnosis Assessment Notes Treatment Notes Treatment Clinical Notes Jul, Contusion of right wrist, initial encounter (ICD-10 - S60.211A) Patient placed in cock up wrist splint. Activities 2-5 lbs ADLs [employer] Other 12-13-2022 NoteThe [facility] [id number] NoteThe [facility] [id number] NoteThe [facility] [id number] Evaluation note * Encounter Date Diagnosis Assessment [...] Advised the patient to follow-up with [facility] neurology clinic I will try to reach to Dr. Santana's office about fludrocortisone I would continue same blood pressure medications. Advised the patient to follow a low-salt diet and to monitor her blood pressure at home 18 Oct, 2022 Migraine aura, persistent, intractable (ICD-10 - G43.519) Advised the patient to follow with [facility] neurology clinic [employer] Other 08-04-2022 NoteThe [facility] [id number] NoteThe [facility] [id number] Evaluation note* Encounter Date Diagnosis Assessment Notes [...] off all diuretics metolazone, spironolactone and bumetanide. [employer] Other Discharge summary Author Jim Randhawa [facility] July 03, 2023 3:03pm Note Date/Time July 03, 2023 2: 55pm [facility] ENTER [address] [place] [address] Discharge Summary Signed Patient: Mabel Moser MR#: [id number] : 1960 Acct:[id number] Age/Sex: 63 / F Adm Date: 4 Loc: Room: [address] [place] [address]: Jim Randhawa DO Copies to: [...] signed by Jim Randhawa DO> 07/03/23 1503 [facility] Work Phone: Evaluation noteNo assessment information available [facility] Work Phone: Evaluation noteNo InformationNort [employer] Other Evaluation note* Diagnosis Onset Date Resolution Status Acute heart failure acute RENETTA (acute kidney injury) ac moapa Anemia chronic CKD (chronic kidney disease) stage 3, GFR 30-59 ml/min chronic Hypertension [facility] Work Phone: history general Narrative - Reported* Type Description [...] History COVID 05/2020 Hospitalization History COVID 04/2021 [employer] Other [employer] general Narrative - Reported* Type Description Date [...] Medical History C- DIFF 03/2021 Medical History [facility] 04/2021 Surgical History rotator cuff tear repair [...] History COVID 05/2020 Hospitalization History COVID 04/2021 [employer] Other history general Narrative - Reported* Type [...] 04/2021 Hospitalization History ELEVATED POTASSIUM LEVEL 09/19/2022 [employer] Other Hospital Discharge instructions Additional Instructions Home health to manage: - PT/OT to eval and treat - Monitor VS routine - Dx. HTN - CHF assessments/education - Urinary assessments - Dx. CKD on RENETTA - Fall precautions - [facility] Work Phone: Summary Purpose Family [...] and content) DATE CREATED AUTHOR 01/14/2019 Ailyn forte DATE CREATED AUTHOR AUTHOR'S ORGANIZ ATION 07/24/2021 [facility] DATE CREATED AUTHOR AUTHOR'S ORGANIZ ATION 01/17/2022 [facility] DATE CREATED AUTHOR AUTHOR'S ORGANIZ ATION 12/05/2022 [facility] DATE CREATED AUTHOR AUTHOR'S ORGANIZ ATION 02/10/2023 [facility] DATE CREATED AUTHOR AUTHOR'S ORGANIZ ATION 08/04/[address] [facility] DATE CREATED AUTHOR AUTHOR'S ORGANIZ ATION 10/19/2023 [facility] DATE CREATED AUTHOR AUTHOR'S ORGANIZ ATION 11/19/2023 [facility] DATE CREATED AUTHOR AUTHOR'S ORGANIZ ATION 01/19/2024 [facility] REASON FOR VISIT (unrecogniz ed section [...] BE BASED ON THE PRIMARY CLINICAL RECORDS. [employer] [facility]. provides no warranty or guarantee of the accuracy or completeness of information in this document.
--- NOTE | 2024-01-21 16:05 | CT_ITS ---
The [address] [address] Patient Name: JOSE CLEMENTS MRN: [id number] date: 1960 Sex: F Assigned Patient Location: ER Current Patient Location: ER Accession/Order Number: [id number] Exam Date: 01/21/2024 16:18 Report Date: 01/21/2024 17:38 At the request of: TERESSA GREGORY Procedure: CT abdomen pelvis wo con EXAM: CT abdomen pelvis wo con HISTORY: Pain, possible hernia and right abd COMPARISON: CT scans 02/07/2023, 05/27/2021, 10/10/2020. TECHNIQUE: CT abdomen pelvis without contrast. Axial scans with multiplanar reformatted images. Individualized dose reduction used for this exam. FINDINGS: Lower chest: No acute process lower chest, minor scarring. ABDOMEN: No focal liver lesion. Previous cholecystectomy. Marked dilatation of the biliary tract similar to previous without abnormality in the duct or head of the pancreas. This appears to be a chronic chronic finding. No abnormality involving the adrenal glands, pancreas, spleen. No ascites or free fluid. No definite adenopathy although assessment without contrast is limited. Normal size aorta. IVC filter low-lying extending into the right iliac vein similar to previous. Symmetric kidneys without hydronephrosis, renal or ureteral calculus. Previous gastric bypass surgery. Diffuse distended colon with large amounts of gas and stool to the rectum. Cecum approximately 9.5 cm on coronal images. No pneumatosis or pneumoperitoneum. Large amount stool in the rectum question fecal impaction. Mild to moderate fluid and gas throughout the small bowel without focal distention or transition zone or other evidence of mechanical obstruction. Pelvis: Prominent fluid in the bladder. Large amount of stool in the pelvic colon including rectum. No free fluid or mass lesion. Previous hysterectomy. MUSCULOSKELETAL: Previous lumbar spine surgery with hardware. No acute appearing abnormality subcutaneous stranding fluid in calcifications in each buttock probably chronic. No evidence of abdominal pelvic wall hernia. CT/CT abdomen pelvis wo con IMPRESSION: 1. Distended colon with large amount of gas and stool especially cecum and rectum. Question fecal impaction. 2. Nonspecific small bowel gas pattern without findings suggesting obstruction. No pneumatosis or pneumoperitoneum. 3. Other chronic incidental findings similar to previous. Electronically authenticated by: YAMILA FALCON Date: 01/21/2024 17:38
--- NOTE | 2024-01-21 16:05 | ECG_ITS ---
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
--- NOTE | 2024-01-21 16:07 | ED.ABDPAIN1 ---
HPI - Abdominal Pain General Chief Complaint: Abdominal Pain Stated Complaint: Headache, Back Pain, Abdominal Pain Time Seen by Provider: 01/21/24 15:55 History of Present Illness HPI narrative: 63-year-old female presents for multiple complaints. She is to me primarily complaining of Related Data Home Medications ?Medication ?Instructions ?Recorded ?Confirmed alprazolam 0.5 mg tablet 0.5 mg PO BID PRN anxiety 12/08/22 01/04/24 amitriptyline 150 mg tablet 300 mg PO BEDTIME 12/08/22 01/04/24 calcium acetate(phosphat bind) 667 667 mg PO BIDWM 12/08/22 01/04/24 mg capsule levothyroxine 100 mcg tablet 100 mcg PO DAILY 12/08/22 01/04/24 linaclotide 290 mcg capsule 290 mcg PO DAILY 12/08/22 01/04/24 (Linzess) oxycodone-acetaminophen 5 mg-325 2 tab PO Q6H PRN pain 12/08/22 01/04/24 mg tablet primidone 50 mg tablet 150 mg PO BEDTIME 12/08/22 01/04/24 tizanidine 4 mg tablet (Zanaflex) 4 mg PO Q6H PRN muscle spasticity 12/08/22 01/04/24 aripiprazole 2 mg tablet (Abilify) 2 mg PO DAILY 01/23/23 01/04/24 bumetanide 1 mg tablet 3 mg PO Q12H PRN SWELLING 01/23/23 01/04/24 butorphanol 10 mg/mL nasal spray 1 spray intranasal .QD PRN pain 02/03/23 01/04/24 azelastine 0.05 % eye drops 1 drp ophthalmic (eye) DAILY 09/29/23 01/04/24 desvenlafaxine succinate 50 mg 50 mg PO DAILY 09/29/23 01/04/24 tablet,extended release 24 hr diclofenac sodium 1 % topical gel 2 g topical .QD PRN 09/29/23 01/04/24 PAIN/INFLAMMATION doxepin 10 mg capsule 10 mg PO BID 09/29/23 01/04/24 escitalopram oxalate 20 mg tablet 20 mg PO DAILY 09/29/23 01/04/24 fentanyl 100 mcg/hr transdermal 1 patch transdermal Q72H 10/12/23 01/04/24 patch pramipexole 1 mg tablet 1 mg PO .qd 10/23/23 01/04/24 sacubitril 49 mg-valsartan 51 mg 1 tab PO BID 01/04/24 01/04/24 tablet (Entresto) spironolactone 50 mg tablet 50 mg PO DAILY 01/04/24 01/04/24 Previous Rx's ?Medication ?Instructions ?Recorded apixaban 5 mg tablet (Eliquis) 5 mg PO Q12H #60 tabs 01/08/24 cefdinir 300 mg capsule 600 mg (2 x 300 mg) PO DAILY 10 01/08/24 days #20 caps doxycycline monohydrate 100 mg 100 mg PO BID 10 days #20 caps 01/08/24 capsule Allergies Allergy/AdvReac Type Severity Reaction Status Date / Time povidone-iodine Allergy Intermediate Verified 12/14/23 00:19 [From Betadine] amoxicillin [From Augmentin] Allergy Mild Vomiting Verified 12/14/23 00:19 clavulanic acid Allergy Mild Vomiting Verified 12/14/23 00:19 [From Augmentin] Sulfa (Sulfonamide Allergy Mild Vomiting Verified 12/14/23 00:19 Antibiotics) ciprofloxacin [From Cipro] Allergy Unknown Verified 12/14/23 00:19 [facility] Medical History Chronic kidney disease ?N18.9 - Chronic kidney disease, unspecified (ICD-10) Acute kidney injury ?N17.9 - Acute kidney failure, unspecified (ICD-10) Edema of lower leg due to peripheral venous insufficiency ?I87.2 - Venous insufficiency (chronic) (peripheral) (ICD-10) ?R60.0 - Localized edema (ICD-10) Depression ?F32.A - Depression, unspecified (ICD-10) Gastroenteritis ?K52.9 - Noninfective gastroenteritis and colitis, unspecified (ICD-10) Migraine without aura and without status migrainosus, not intractable ?G43.009 - Migraine without aura, not intractable, without status migrainosus (ICD-10) Chronic heart failure with preserved ejection fraction (HFpEF) ?I50.32 - Chronic diastolic (congestive) heart failure (ICD-10) Chest pain ?R07.9 - Chest pain, unspecified (ICD-10) Dyspnea ?R06.00 - Dyspnea, unspecified (ICD-10) Fluid overload ?E87.70 - Fluid overload, unspecified (ICD-10) Osteoarthritis ?M19.90 - Unspecified osteoarthritis, unspecified site (ICD-10) Anemia ?D64.9 - Anemia, unspecified (ICD-10) Anxiety ?F41.9 - Anxiety disorder, unspecified (ICD-10) Stroke ?I63.9 - Cerebral infarction, unspecified (ICD-10) Acid reflux ?K21.9 - Gastro-esophageal reflux disease without esophagitis (ICD-10) Hypothyroid ?E03.9 - Hypothyroidism, unspecified (ICD-10) Kidney failure ?N19 - Unspecified kidney failure (ICD-10) COPD (chronic obstructive pulmonary disease) ?J44.9 - Chronic obstructive pulmonary disease, unspecified (ICD-10) Asthma ?J45.909 - Unspecified asthma, uncomplicated (ICD-10) CHF (congestive heart failure) ?I50.9 - Heart failure, unspecified (ICD-10) Irregular heart beat ?I49.9 - Cardiac arrhythmia, unspecified (ICD-10) HTN (hypertension) ?I10 - Essential (primary) hypertension (ICD-10) Heart attack ?I21.9 - Acute myocardial infarction, unspecified (ICD-10) Lumbar spondylosis ?M47.816 - Spondylosis without myelopathy or radiculopathy, lumbar region (ICD-10) Surgical History H/O hysterectomy with oophorectomy H/O gastric bypass ?Z98.84 - Bariatric surgery status (ICD-10) History of hernia repair ?Z98.890 - Other specified postprocedural states (ICD-10) ?Z87.19 - Personal history of other diseases of the digestive system (ICD-10) History of rotator cuff surgery ?Z98.890 - Other specified postprocedural states (ICD-10) History of right knee joint replacement ?Z96.651 - Presence of right artificial knee joint (ICD-10) History of appendectomy ?Z90.49 - Acquired absence of other specified parts of digestive tract (ICD-10) Hx of cholecystectomy ?Z90.49 - Acquired absence of other specified parts of digestive tract (ICD-10) Family History Father Family history of CHF (congestive heart failure) Family history of diabetes mellitus Family history of hypertension Family history of myocardial infarction Family history of stroke Mother Family history of CHF (congestive heart failure) Family history of COPD (chronic obstructive pulmonary disease) Family history of diabetes mellitus Family history of hypertension Family history of myocardial infarction Family history of stroke Social History Within the past year, how often did you have a drink containing alcohol: never Within the past year, how often did you have six or more drinks on one occasion: never Score interpretation: A score less than 3 is consistent with normal alcohol consumption. 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 Highest level of school completed/degree received: Associate degree: occupational, technical, vocational program Are you now , , , , never or living with a partner: In a typical week, how many times do you talk on the telephone with family, friends, or neighbors: 3 or more times per week How often do you get together with friends or relatives: twice per week How often do you attend bahai or tenriism services: 4 or more times per year Do you belong to any clubs or organizations such as bahai groups unions, fraternal or athletic groups, or school groups: no Total score: 3 Score interpretation: A score of greater than or equal to 2 indicates the lowest level of social isolation. Little interest or pleasure in doing things: not at all Feeling down, depressed, or hopeless: several days Feel stressed/tense/nervous/anxious/difficulty sleeping: to some extent Life stressors: recent of family or friend Do you think of yourself as: straight/heterosexual Gender Identity: female Exam Constitutional Vital Signs, click to edit/add: Last Vital Signs Temp 98.6 F 01/21/24 15:45 Pulse 71 01/21/24 17:30 Resp 15 01/21/24 17:30 BP 108/60 01/21/24 17:30 Pulse Ox 100 01/21/24 17:30 O2 Del Method Room Air 01/21/24 15:58 Course Vital Signs Vital signs: Vital Signs Temperature 98.6 F 01/21/24 15:45 Pulse Rate 61 01/21/24 15:45 Respiratory Rate 15 01/21/24 15:45 Blood Pressure 70/50 L 01/21/24 15:45 Pulse Oximetry 92 L 01/21/24 15:45 Oxygen Delivery Method Room Air 01/21/24 15:45 Temperature 98.6 F 01/21/24 15:45 Pulse Rate 71 01/21/24 17:30 Respiratory Rate 15 01/21/24 17:30 Blood Pressure 108/60 01/21/24 17:30 Pulse Oximetry 100 01/21/24 17:30 Oxygen Delivery Method Room Air 01/21/24 15:58 MDM - Abdominal Pain MDM Narrative Medical decision making narrative: The patient has an unstable C2 fracture is found on CT and MRI 2 days ago. She has been [facility] to [facility], 2 days ago, but she did not. She came here instead. She has been complaining of some abdominal pain and she appears to be constipated. She claims to be having normal bowel movements. She is on several pain medications. CT otherwise does not show any acute findings. She was hypotensive upon arrival, likely due to dehydration. She has not been eating and drinking and her BUN and creatinine were elevated above her baseline. She was given IV fluids and her blood pressure has improved greatly. The patient is to be transferred to [facility] and we are awaiting callback from the orthopedist. The patient is signed out to Dr. Renee at change of shift. Differential Diagnosis Differential diagnosis: Likely abdominal pain, constipation, diverticulitis, gastroenteritis and small bowel obstruction Lab Data Attestation: I reviewed the patient's lab results. Labs: Lab Results 01/21/24 01/21/24 Range/Units 16:00 16:09 WBC 9.6 (4.0-11.0) 10^3/uL RBC 2.89 L (4.20-5.40) 10^6/uL Hgb 8.8 L (12.0-16.0) g/dL Hct 28.3 L (36.0-48.0) % MCV 97.9 (81.0-99.0) fL MCH 30.4 (26.7-34.0) pg MCHC 31.1 (29.9-35.2) g/dL RDW 13.3 (11.0-15.0) % Plt Count 309 (150-450) 10^3/uL MPV 9.2 L (9.5-13.5) fL Neut % (Auto) 85.9 H (43.0-75.0) % Lymph % (Auto) 7.7 L (20.5-60.0) % [place] % (Auto) 4.7 (1.7-12.0) % Eos % (Auto) 1.2 (0.9-7.0) % Baso % (Auto) 0.2 (0.2-2.0) % Neut # (Auto) 8.3 H (1.4-6.5) 10^3/uL Lymph # (Auto) 0.7 L (1.2-3.8) 10^3/uL [place] # (Auto) 0.5 (0.3-0.8) 10^3/uL Eos # (Auto) 0.1 (0.0-0.7) 10^3/uL Baso # (Auto) 0.0 (0.0-0.1) 10^3/uL Abs Immat Gran (auto) 0.03 (0.00-0.03) 10^3/uL Imm/Tot Granulo (auto) 0.3 (0.0-0.5) % Sodium 134 L (136-145) mmol/L Potassium 4.2 (3.5-5.1) mmol/L Chloride 100 (98-107) mmol/L Carbon Dioxide 23.3 (21.0-32.0) mmol/L Anion Gap 14.9 BUN 83.0 H* (7.0-18.0) mg/dL Creatinine 2.27 H (0.55-1.02) mg/dL Est GFR ( Amer) 27 L (>=60) Est GFR (Non-Af Amer) 22 L (>=60) BUN/Creatinine Ratio 36.6 Glucose 130 H (74-106) mg/dL Calcium 8.2 L (8.5-10.1) mg/dL Total Bilirubin 0.2 (0.2-1.0) mg/dL Direct Bilirubin 0.1 (0.0-0.2) mg/dL AST 22 (15-37) U/L ALT 23 (14-59) U/L Alkaline Phosphatase 279 H (46-116) U/L Troponin I High Sens 7.0 (4.0-51.3) pg/mL Total Protein 5.9 L (6.4-8.2) g/dL Albumin 2.9 L (3.4-5.0) g/dL Globulin 3.0 g/dL Albumin/Globulin Ratio 1.0 Amylase 27 (25-115) U/L Lipase 30.0 (16.0-77.0) U/L Urine Color Yellow (YELLOW) Urine Clarity Clear (CLEAR) Urine pH 5.5 (5.0-9.0) Ur Specific [place] 1.010 (1.005-1.025) Urine Protein Negative (NEG/TRACE) mg/dL Urine Glucose (UA) Negative (NEGATIVE) mg/dL Urine Ketones Negative (NEGATIVE) mg/dL Urine Occult Blood Negative (NEGATIVE) Urine Nitrite Negative (NEGATIVE) Urine Bilirubin Negative (NEGATIVE) Urine Urobilinogen 0.2 (0.2-1.0) EU/dL Ur Leukocyte Esterase Negative (NEGATIVE) Urine RBC None seen (0-2) #/HPF Urine WBC 0-2 A (NONE SEEN) #/HPF Ur Squamous Epith Cells Rare (NONE/RARE) #/LPF Urine Crystals None seen (None Seen) #/HPF Urine Bacteria None seen (NONE SEEN) #/HPF Urine Casts Seen A (NONE SEEN) #/LPF Hyaline Casts Few Urine Mucus None seen (NONE SEEN) Imaging Data CT scan - abdomen: Radiologist's impression: ITS Impressions Abdomen/Pelvis CT 01/21/24 16:05 IMPRESSION: 1. Distended colon with large amount of gas and stool especially cecum and rectum. Question fecal impaction. 2. Nonspecific small bowel gas pattern without findings suggesting obstruction. No pneumatosis or pneumoperitoneum. 3. Other chronic incidental findings similar to previous. Electronically authenticated by: YAMILA FALCON Date: 01/21/2024 17:38 Discharge Plan Discharge Chief Complaint: Abdominal Pain Clinical Impression: C2 cervical fracture, Constipation [facility] Time of Disposition Decision: 18:52 Discharge Location: [facility] Condition: Fair Mode of Transportation: EMS
[2024-01-21 16:28] LABS: Basophils Percent Auto 0.2 % (0.2-2.0); Eosinophils Absolute Auto 0.1 10^3/uL (0.0-0.7); Eosinophils Percent Auto 1.2 % (0.9-7.0); Hematocrit 28.3 % (36.0-48.0); Hemoglobin 8.8 g/dL (12.0-16.0); Immature Granulocytes Abs Auto 0.03 10^3/uL (0.00-0.03); Immature Granulocytes Pct Auto 0.3 % (0.0-0.5); Lymphocytes Absolute Auto 0.7 10^3/uL (1.2-3.8); Lymphocytes Percent Auto 7.7 % (20.5-60.0); Mean Corpuscular HGB Conc 31.1 g/dL (29.9-35.2); Mean Corpuscular Hemoglobin 30.4 pg (26.7-34.0); Mean Corpuscular Volume 97.9 fL (81.0-99.0); Mean Platelet Volume 9.2 fL (9.5-13.5); Monocytes Absolute Auto 0.5 10^3/uL (0.3-0.8); Monocytes Percent Auto 4.7 % (1.7-12.0); Neutrophils Absolute Auto 8.3 10^3/uL (1.4-6.5); Neutrophils Percent Auto 85.9 % (43.0-75.0); Platelet Count 309 10^3/uL (150-450); Red Blood Count 2.89 10^6/uL (4.20-5.40); Red Cell Distribution Width 13.3 % (11.0-15.0); White Blood Count 9.6 10^3/uL (4.0-11.0)
[2024-01-21 16:29] LABS: Bilirubin Urine NEGATIVE (NEGATIVE); Blood Urine NEGATIVE (NEGATIVE); Clarity Urine CLEAR (CLEAR); Color Urine YELLOW (YELLOW); Glucose Urine UA NEGATIVE (NEGATIVE); Ketones Urine NEGATIVE (NEGATIVE); Leukocyte Esterase Urine NEGATIVE (NEGATIVE); Nitrite Urine NEGATIVE (NEGATIVE); Protein Urine NEGATIVE (NEG/TRACE); Urobilinogen Urine 0.2 EU/dL (0.2-1.0); pH Urine 5.5 (5.0-9.0)
[2024-01-21] MEDS: 0.9 % SODIUM CHLORIDE 1,000 ML 1000 ML IV (16:29)
[2024-01-21] MEDS: ONDANSETRON PF 4 MG/2 ML VIAL IV (16:29)
[2024-01-21 16:45] LABS: Alanine Aminotransferase 23 U/L (14-59); Albumin Level 2.9 g/dL (3.4-5.0); Alkaline Phosphatase 279 U/L (46-116); Amylase 27 U/L (25-115); Anion Gap 14.9; Aspartate Amino Transferase 22 U/L (15-37); BUN Creatinine Ratio 36.6; Bilirubin Direct 0.1 mg/dL (0.0-0.2); Bilirubin Total 0.2 mg/dL (0.2-1.0); Calcium 8.2 mg/dL (8.5-10.1); Carbon Dioxide 23.3 mmol/L (21.0-32.0); Chloride 100 mmol/L (98-107); Estimated GFR (African America 27 (>=60); Estimated GFR (Non-African Ame 22 (>=60); Glucose 130 mg/dL (74-106); Potassium 4.2 mmol/L (3.5-5.1); Sodium 134 mmol/L (136-145); Total Protein 5.9 g/dL (6.4-8.2)
[2024-01-21 16:46] LABS: Bacteria Urine NONE SEEN #/HPF (NONE SEEN); Cast Seen? SEEN #/LPF (NONE SEEN); Crystals Seen? None Seen #/HPF (None Seen); Hyaline Casts Urine FEW; Mucus Urine NONE SEEN (NONE SEEN); RBC Urine NONE SEEN #/HPF (0-2); Squamous Epithelial Cell Urine RARE #/LPF (NONE/RARE); WBC Urine 0-2 #/HPF (NONE SEEN)
[2024-01-21] MEDS: 0.9 % SODIUM CHLORIDE 1,000 ML 200 ML IV (19:12)
== END 2024-01-21 23:44 | disposition short-term general hospital (02) ==
PROVIDERS: Emergency Medicine; Emergency Provider Internal Medicine; PCP Family Medicine
DX: S12.110A Anterior displaced Type II dens fracture, initial encounter for closed fracture (principal); N17.9 Acute kidney failure, unspecified; E86.0 Dehydration; R60.9 Edema, unspecified; K59.00 Constipation, unspecified; W19.XXXA Unspecified fall, initial encounter
CPT/HCPCS: 36415; 74176; 80048; 80076; 81001; 82150; 83690; 84484; 85025; 93005; 96361; 96374; 99285; J2405

== ENCOUNTER 2024-02-22 07:38 | Outpatient (RCR) | payer MEDICARE, MEDICAID, SELFPAY ==
[2024-02-09] MEDS: HEPARIN SODIUM (PORCINE) PF LOCK FLUSH 500 UNIT/5 ML SYRINGE IV (12:45)
--- NOTE | 2024-02-09 12:48 | PC.NURSE ---
1230: Pt. to [facility] amb. for blood draw. Seated in recliner. Using sterile technique, right ant. chest port accessed after second attempt. Flushes easily with good blood return. Blood obtained for ordered labs. Port flushed with saline and Heparin. Port de-accessed. Slight bleeding to site. Covered with cotton ball and tape. Pt. tolerated without c/o. 1245: D/c'd amb. to home.
[2024-02-09 13:07] LABS: Basophils Absolute Auto 0.1 10^3/uL (0.0-0.1); Basophils Percent Auto 0.6 % (0.2-2.0); Eosinophils Absolute Auto 0.1 10^3/uL (0.0-0.7); Eosinophils Percent Auto 1.6 % (0.9-7.0); Hematocrit 26.6 % (36.0-48.0); Hemoglobin 8.3 g/dL (12.0-16.0); Immature Granulocytes Abs Auto 0.07 10^3/uL (0.00-0.03); Immature Granulocytes Pct Auto 0.8 % (0.0-0.5); Lymphocytes Absolute Auto 1.1 10^3/uL (1.2-3.8); Lymphocytes Percent Auto 12.8 % (20.5-60.0); Mean Corpuscular HGB Conc 31.2 g/dL (29.9-35.2); Mean Corpuscular Hemoglobin 30.1 pg (26.7-34.0); Mean Corpuscular Volume 96.4 fL (81.0-99.0); Monocytes Absolute Auto 0.5 10^3/uL (0.3-0.8); Monocytes Percent Auto 5.8 % (1.7-12.0); Neutrophils Absolute Auto 6.5 10^3/uL (1.4-6.5); Neutrophils Percent Auto 78.4 % (43.0-75.0); Platelet Count 419 10^3/uL (150-450); Red Blood Count 2.76 10^6/uL (4.20-5.40); White Blood Count 8.3 10^3/uL (4.0-11.0)
[2024-02-09 13:20] LABS: Alanine Aminotransferase 19 U/L (14-59); Albumin Globulin Ratio 0.8; Albumin Level 2.9 g/dL (3.4-5.0); Alkaline Phosphatase 228 U/L (46-116); Anion Gap 14.2; Aspartate Amino Transferase 21 U/L (15-37); Bilirubin Total 0.2 mg/dL (0.2-1.0); Calcium 8.2 mg/dL (8.5-10.1); Carbon Dioxide 23.4 mmol/L (21.0-32.0); Chloride 98 mmol/L (98-107); Estimated GFR (African America 48 (>=60); Estimated GFR (Non-African Ame 40 (>=60); Globulin 3.5 g/dL; Glucose 84 mg/dL (74-106); Potassium 4.6 mmol/L (3.5-5.1); Sodium 131 mmol/L (136-145); Total Protein 6.4 g/dL (6.4-8.2)
[2024-02-22 12:29] LABS: Basophils Percent Auto 0.5 % (0.2-2.0); Eosinophils Absolute Auto 0.3 10^3/uL (0.0-0.7); Eosinophils Percent Auto 4.5 % (0.9-7.0); Hematocrit 28.2 % (36.0-48.0); Hemoglobin 8.6 g/dL (12.0-16.0); Immature Granulocytes Abs Auto 0.03 10^3/uL (0.00-0.03); Immature Granulocytes Pct Auto 0.5 % (0.0-0.5); Lymphocytes Absolute Auto 1.2 10^3/uL (1.2-3.8); Lymphocytes Percent Auto 18.5 % (20.5-60.0); Mean Corpuscular HGB Conc 30.5 g/dL (29.9-35.2); Mean Corpuscular Hemoglobin 29.2 pg (26.7-34.0); Mean Corpuscular Volume 95.6 fL (81.0-99.0); Monocytes Absolute Auto 0.6 10^3/uL (0.3-0.8); Monocytes Percent Auto 9.2 % (1.7-12.0); Neutrophils Absolute Auto 4.4 10^3/uL (1.4-6.5); Neutrophils Percent Auto 66.8 % (43.0-75.0); Platelet Count 299 10^3/uL (150-450); Red Blood Count 2.95 10^6/uL (4.20-5.40); Red Cell Distribution Width 14.6 % (11.0-15.0); White Blood Count 6.6 10^3/uL (4.0-11.0)
[2024-02-22 12:47] LABS: Alanine Aminotransferase 23 U/L (14-59); Albumin Level 3.3 g/dL (3.4-5.0); Alkaline Phosphatase 254 U/L (46-116); Anion Gap 14.9; Aspartate Amino Transferase 22 U/L (15-37); BUN Creatinine Ratio 22.3; Bilirubin Total 0.2 mg/dL (0.2-1.0); Calcium 8.4 mg/dL (8.5-10.1); Carbon Dioxide 21.9 mmol/L (21.0-32.0); Chloride 104 mmol/L (98-107); Estimated GFR (African America 50 (>=60); Estimated GFR (Non-African Ame 42 (>=60); Globulin 3.3 g/dL; Glucose 82 mg/dL (74-106); Potassium 4.8 mmol/L (3.5-5.1); Sodium 136 mmol/L (136-145); Total Protein 6.6 g/dL (6.4-8.2)
--- NOTE | 2024-02-22 13:14 | PC.NURSE ---
1200: Pt to [facility] amb.for blood draw from port a cath. Seated in recliner. Using sterile technique, right ant. chest port accessed without difficulty. Flushes easily and able to aspirate blood easily. Blood obtained for ordered labs. Pt. tolerated without c/o. 1210: Port flushed with saline and Heparin, port de-accessed. Covered site with cotton ball. Pt. d/c'd amb. to home.
== END 2024-02-24 23:59 | disposition home or self-care (01) ==
LOC: INF 07:38
PROVIDERS: PCP Family Medicine; Visit Provider Family Medicine
DX: I10 Essential (primary) hypertension (principal); E87.1 Hypo-osmolality and hyponatremia; D64.9 Anemia, unspecified
CPT/HCPCS: 36591; 36592; 80053; 83930; 85025; J1642

== ENCOUNTER 2024-02-28 02:37 | Inpatient (IN) | payer MEDICARE, MEDICAID, SELFPAY ==
[2024-02-28] VITALS (22 sets, daily range): BP systolic 80–158; BP diastolic 51–75; PULSE 71–97; TEMP 36.4–36.9; O2SAT 92–98; BMI 39.1; BMI 40.4
--- OUTSIDE RECORDS SUMMARY | 2024-02-28 02:48 | XMS_ITS | CCD ---
Author Organization [facility] CliniSymn Care Team Providers Care Watch Guard Gate Name Role Phone NIRMAL LEWIS Admitting Unavailable [...] Primary Care Provider WALLY Helm Emergency Provider ROBETR JOHNSTON Attending Unavailable ROBERT JOHNSTON Admitting Unavailable [...] BARBOUR Attending Unavailable HOY ., DR BARBOUR Admoelna Unavailable HOY ., DR BARBOUR Primary Care [...] Unavailable PAY ., DR HUNTER Consulting Unavailable JUDHA CHARLES Consulting Unavailable Barnes, David Consulting Unavailable HOY ., DR BARBOUR Admitting Unavailable HOY ., DR BARBOUR Primary Care Unavailable HOY ., DR BARBOUR Consulting Unavailable HOY ., DR BARBOUR Attending Unavailable SANTA [place]ARGAR[place], DR CARLOS Castillo Consulting Unavailable LAKSHMIPATHY ., [...] DR BARBOUR Attending Unavailable LISACHELA Attending Unavailable LISA, ZANDRA Admitting Unavailable HOY [...] ., DR ANIKA Sanchez Admitting Unavailable DEJESUS . NNAMDI Consulting Unavailable [...] DR ANIKA Sanchez Consulting Unavailable LAKSHMIPATHY ., NARENDANDRZEJATH Attending Yumiko [...] DR ANIKA Sanchez Consulting Unavailable LAKSHMIPATHY ., NARENDANDRZEJATH Attending Yumiko [...] Care Unavailable TAMLYN ., FELECIA Attending Unavailable GOLDENN ., FELECIA Admitting Unavailable HOY ., DR [...] Unavailable MD Angle Santana Primary Care Provider [phone] MD Beatriz Oh Admit Provider DO Jim Randhawa Attending Provider [phone] MD [place] Other Provider Jim Randhawa Attending Unavailable Beatriz Oh Admitting Unavailable [place] Consulting Unavailable Angle Santana Primary Care Unavailable Favian Helm Admitting Unavailable Favian Helm Attending Unavailable Angle Santana Primary Care Unavailable HOY, ANGLE M Referring Unavailable HOY, ANGLE M Primary Care Unavailable NOEL RACHEL Referring Unavailable GANGWANI, RAYRAY HARP Referring Unavailab le BARMACIE TEIXEIRA Attending Unavailable DUNCAN DENNIS Attending Unavailable SHERLY ROSADO Referring Unavailable MOUKARBEL, BENJIE Attending Unavailable JOANARHIANNON Attending Unavailable MOUKARBELBENJIE Attending Unavailable GANGWANI, RAYRAY HARP Referring Unavailab le GANGWANI, RAYRAY HARP Referring Unavailab le ALGHOTHANI, MOHAMAD Referring Unavailable ALGHOTHANI, MOHAMAD Referring Unavailable ZENZ, JUDAH Referring Unavailable HOY, ANGLE Referring Unavailable GANGWANI, RAYRAY HARP Attending Unavailab le YNES, RADHA Admitting Unavailable GANGWANI, RAYRAY HARP Consulting Unavailab Migel Sparrow Attending Unavailable Hoy, Angle Referring Unavailable PAYBALJINDER Referring Unavailable HOY, ANGLE M Primary Care Unavailable ARMAND, ARMAND MOON Consulting Unavailable LOUKA, MERE Attending Unavailable LOUKA, MERE Admitting Unavailable HOY, ANGLE M Primary Care Unavailable ARMAND, ARMAND MOON Consulting Unavailable AFANEH AMER JEISON-HAFIZ Admitting Unavail able AFANEH AMER JEISON-HAFIZ Attending Unavail able BUNNY PARIKH Consulting Unavailable YASMINJENNY Duron S Consulting Unavailable PINEDA OAKLEY Consulting Unavailable ZAIDAMARIA ESTHER HankinsMA O Consulting Unavailable RADHA WADE Consulting Unavailable ABHISHEK LUCIANO A Consulting Unavailable THUMMALAPALLY, RUSHEETH Consulting Unavaila ble Allergies Allergy Classification Reported Allergen(s) Allergy Type Date of Onset Reaction(s) Facility (11 sources) Amoxicillin Drug Allergy 10-29-19 23 Unknown, Diarrhea [facility] (5 sources) Amoxicillin / Clavulanate Drug Allergy Unknown [facility] [employer] Other (13 sources) Povidone-Iodine; Translations: [POVIDONE-IODINE] Drug Allergy 08-15-19 17 Unknown, [facility] (9 sources) Sulfamethoxazole / Trimethoprim Drug Allergy Unknown [employer] Other (1 source) sulfaSALAzine Drug Allergy Unknown [facility] [employer] Other (8 sources) Amoxicillin / Clavulanate; Translations: [Augmentin] Drug Allergy 11-26-19 13 Unknown [facility] Rep[facility] (1 source) Bumetanide Drug Allergy 03-22-20 16 [facility] (1 source) Cephalexin Drug Allergy 01-15-20 14 [facility] (2 sources) gabapentin; Translations: [GABAPENTIN] Drug Allergy 08-19-19 22 [facility] (4 sources) Povidone-Iodine; Translations: [Betadine] Drug Allergy 11-26-19 13 [facility] (1 source) pregabalin; Translations: [LYRICA] Drug Allergy 08-19-19 22 [facility] (7 sources) Sulfonamides (Antibiotic); Translations: [SULFA (SULFONAMIDE ANTIBIOTICS)] Drug allergy (disorder) 11-26-19 13 Rash [facility] Repository (1 source) Sulfonamide Drug allergy Unknown [employer] Other (7 sources) Substance with sulfonamide structure and antibacterial mechanism of action (substance) Drug allergy Unknown [employer] Other (3 sources) Clavulanate; Translations: [clavulanic acid] Drug Allergy 10-29-19 Diarrhea [facility] (1 source) Ciprofloxacin Drug Allergy 05-26-20 [facility] Repository (1 source) Amoxicillin Drug Allergy 04-04-20 23 [facility] (1 source) Povidone-Iodine Drug Allergy 04-04-20 23 [facility] Repository (1 source) Sulfamethoxazole Drug Allergy 04-04-20 23 [facility] (1 source) Sulfonamides (Antibiotic) Drug allergy (disorder) 04-04-20 [facility] (1 source) Trimethoprim Drug Allergy 04-04-20 [facility] Repository (2 sources) AMOXICILLIN-POT CLAVULANATE; Translations: [AMOXICILLIN-POT CLAVULANATE] Propensity to adverse reactions to drug (disorder) 06-13-20 14 [facility] Repository (1 source) carvedilol; Translations: [CARVEDILOL] Drug Allergy 12-21-19 24 [facility] Repository (1 source) Cephalexin; Translations: [CEPHALEXIN] Drug Allergy 06-13-20 14 [facility] Repository (1 source) Ciprofloxacin; Translations: [CIPROFLOXACIN] Drug Allergy 10-11-19 [facility] Repository (1 source) Iodine; Translations: [IODINE] Drug Allergy 11-28-19 [facility] Repository (1 source) pregabalin; Translations: [PREGABALIN] Drug Allergy 10-11-19 [facility] (1 source) Sulfamethoxazole / Trimethoprim; Translations: [SULFAMETHOXAZOLE-T RIMETHOPRIM] Drug Allergy 11-28-19 [facility] Repository (1 source) Sulfonamides (Antibiotic); Translations: [sulfa drugs] Propensity to adverse reactions (disorder) [facility] Repository Medications Current Medications Medication Drug Class(es) [...] 28, 2022 8:37pm [facility] Levothyroxine Sodium 100 MCG 1 tablet in the morning on an empty stomach Orally Once a day Active linaclotide 0.29 mg oral capsule (11 sources) Guanylate Cyclase-C Agonist Start: 10-28-2022 Linaclotide (Linzess ) 290 mcg capsule Active 290 MCG PO Every 48 hours October 27, 2022 11:00pm Start: 10-28-2022 take 1 capsule by mo [facility] once daily Linaclotide (Linzess) 290 mcg capsule [...] 31, 2018 1:00am [facility] Metoprolol Tartrate 50 MG [...] 10:41am Start: 08-31-2018 [facility] Pantoprazole (Protonix) 20 mg Tablet,Delayed [...] 04, 2018 6:59am take 2 tablets [facility]-four hours Primidone 50 MG [...] 31, 2018 1:00am take 1 tablet by [facility] every six hours tiZANidine HCl 4 MG [...] Start: 08-31-2018 take 2 tablets by mo [facility] every four to six hours Oxycodone-Acetaminophen (Percocet) 5-325 mg Tablet Active 2 TAB PO EVERY 4-6 HOURS August 31, 2018 1:00am take 2 tablets by mo [facility] every four hours as needed oxyCODONE-Acetaminophen 5-325 MG 2 table t as needed Orally every 4 hrs PRN Active [id number] 200 actuat albuterol 0.09 mg/actuat metered dose [...] 2023 12:30am take 1 tablet by [facility]oseph four times [...] meals Orally Four times a day Active Pf-Rygdcgh-Qki-Iron Fm-Fa-Vitk (Multi For Her) 18 mg iron-600 mcg-80 mcg Tablet (2 sources) Start: 08-31-2018 End: 06-30-2023 take 1 tablet by mouth once daily Hw-Okybmez-Zbq-Iron Fm-Fa-Vitk (Multi For Her) 18 mg iron-600 mcg-80 mcg Tablet Discontinued 1 TAB PO Daily August 31, 2018 12:00am June 30, 2023 12:26am Start: 08-31-2018 take 1 tablet by joseph th once daily Qz-Ltkcogz-Jbi-Iron Fm-Fa-Vitk (Multi For Her) 18 mg iron-600 [...] Translations: [ANXIETY DISORDER UNSPECIFIED] Onset: 3 Chronic Aortic; peripheral; and visceral artery aneurysms (1 source) Dissection of vertebral artery; 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] Onset: 4 Chronic Bacterial infection; unspecified site (1 source) [...] disease (3 sources) Atherosclerotic heart disease of [place] coronary artery without angina pectoris; Translations: [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] Onset: 3 Chronic [...] medical drugs (1 source) Adverse effect of drtgwikwvfe-ridlpenwkl-b nzyme inhibitors, initial encounter; Translations: [ADVERSE EFFECT [...] kidney disease] Onset: 1 Resolved: 1 Chronic Joint disorders and dislocations; trauma-related (1 source) Subluxation of unspecified cervical vertebrae, initial encounter; Translations: [Subluxation of unspecified cervical vertebrae, initial encounter] Onset: 4 Episodic Malaise and fatigue (7 sources) Asthenia; Translations: [...] aftercare (2 sources) Polypharmacy ; Translations: [Other penitentiary (current) drug therapy] 09-04-2018 Episodic Other aftercare (1 source) 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; Translations: [OTH SKILLED NURSING 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 THERAPY] Onset: 3 Episodic Other [...] [Hypoglycemia, unspecified] Chronic Other fractures (1 source) Other nondisplaced dens fracture, initial encounter for closed fracture; Translations: [Other nondisplaced dens fracture, initial encounter for closed fracture] Onset: 4 Episodic Other fractures (1 source) Other displaced dens fracture, sequela; Translations: [Other displaced dens fracture, sequela] Onset: 4 Episodic Other fractures (1 source) Other displaced fracture of second cervical vertebra, subsequent encounter for fracture with delayed healing; Translations: [Other displaced fracture of second cervical vertebra, subsequent encounter for fracture with delayed healing] Onset: 4 Episodic Other gastrointestinal disorders (9 [...] or radiculopathy, cervical region] Onset: 2 Chronic Syncope (1 source) Syncope and collapse; Translations: [Syncope and collapse] Onset: 4 Episodic Thyroid disorders (1 source) Hypothyroidism, unspecified; Translations: [...] [OTHER MUSCLE SPASM] Onset: 05-05-2022 Episodic Other fractures (1 source) Unspecified displaced fracture of second cervical vertebra, initial encounter for closed fracture; Translations: [Unspecified displaced fracture of second cervical vertebra, initial encounter for closed fracture] Onset: 09-30-2023 Episodic Other injuries and conditions due to [...] Test Name Value Interpretation Reference Range Facility Magnesiumon 01-30-2024 Magnesium [Mass/Vol] 2.0 mg/dL Normal 1.6-2.4 [facility] Comment on above: Performed By: #### C MPAbby, CDP #### [facility] [employer] [address] [place] [phone] [employer]: Michael Chen MD CBC with Diffon 01-29-2024 Abs. Basophil 0.00 k/uL Normal 0.0-0.2 [facility] Comment on above: Performed By: #### C MPX, CDP #### [address] [address] [employer]: Michael Chen MD Abs.Imm.Granulocyte 0.09 k/uL Normal 0.00-0.30 [facility] Comment on above: Performed By: #### C MPX, CDP #### [address] [address] [employer]: Michael Chen MD Abs.Neutrophil (Seg) 6.87 k/uL Normal 1.8-7.7 [facility] Comment on above: Performed By: #### C MPX, CDP #### [address] [address] [employer]: Michael Chen MD Basophils/100 WBC (Bld) 0 % Normal 0-2 [facility] Comment on above: Performed By: #### C MPX, CDP #### [facility] [address] [place] [phone] [employer]: Michael Chen MD Eosinophils (Bld) [#/Vol] 0.26 10*3/uL Normal 0.0-0.4 [facility] Comment on above: Performed By: #### C MPX, CDP #### [facility] [address] [place] [phone] [employer]: Michael Chen MD Eosinophils/100 WBC (Bld) 3 % Normal 1-4 [facility] Comment on above: Performed By: #### C MPX, CDP #### [address] [address] [employer]: Michael Chen MD Immature granulocytes/100 WBC (Bld) 1 % High 0 [facility] Comment on above: Performed By: #### C MPX, CDP #### [address] [address] [employer]: Michael Chen MD Lymphocytes (Bld) [#/Vol] 0.95 10*3/uL Low 1.0-4.8 [facility] Comment on above: Performed By: #### C MPX, CDP #### [address] [address] [employer]: Michael Chen MD Lymphocytes/100 WBC (Bld) 11 % Low 24-44 [facility] Comment on above: Performed By: #### C MPX, CDP #### [address] [address] [employer]: Michael Chen MD Monocytes (Bld) [#/Vol] 0.43 10*3/uL Normal 0.1-0.8 [facility] Comment on above: Performed By: #### C MPX, CDP #### [address] [address] [employer]: Michael Chen MD Monocytes/100 WBC (Bld) 5 % Normal 1-7 [facility] Comment on above: Performed By: #### C MPX, CDP #### [address] [address] [employer]: Michael Chen MD Morphology Pedro (Bld) [Interp] Normal Normal [facility] Comment on above: Performed By: #### C MPX, CDP #### [address] [address] [employer]: Michael Chen MD Neutrophil (Seg) 80 % High 36-66 [facility] Comment on above: Performed By: #### C MPX, CDP #### [address] [address] [employer]: Michael Chen MD Platelet, Fluoresc. 288 k/uL Normal 138-453 [facility] Comment on above: Performed By: #### C MPX, CDP #### [address] [address] [employer]: Michael Chen MD PLT, Immature Fract. 1.5 % Normal 1.1-10.3 [facility] Comment on above: Performed By: #### C MPX, CDP #### [address] [address] [employer]: Michael Chen MD Erythrocyte distribution width (RBC) [Ratio] 13.6 % Normal 11.8-14.4 [facility] Comment on above: Performed By: #### C MPX, CDP #### [address] [address] [employer]: Michael Chen MD Hematocrit (Bld) [Volume fraction] 25.9 % Low 36.3-47.1 [facility] Comment on above: Performed By: #### C MPX, CDP #### [facility] [address] [place] [phone] [employer]: Michael Chen MD Hemoglobin (Bld) [Mass/Vol] 7.8 g/dL Low 11.9-15.1 [facility] Comment on above: Performed By: #### C MPX, CDP #### [address] [address] [employer]: Michael Chen MD MCH (RBC) [Entitic mass] 29.8 pg Normal 25.2-33.5 [facility] Comment on above: Performed By: #### C MPX, CDP #### [facility] [address] [place] [phone] [employer]: Michael Chen MD MCHC (RBC) [Mass/Vol] 30.1 g/dL Normal 28.4-34.8 [facility] Comment on above: Performed By: #### C MPX, CDP #### [address] [address] [employer]: Michael Chen MD MCV (RBC) [Entitic vol] 98.9 fL Normal 82.6-102.9 [facility] Comment on above: Performed By: #### C MPX, CDP #### [address] [address] [employer]: Michael Chen MD NRBC Automated 0.0 per 100 WBC Normal 0.0 [facility] Comment on above: Performed By: #### C MPX, CDP #### [address] [address] [employer]: Michael Chen MD Platelet Count See Reflexed IPF Result Normal 138-453 [facility] Comment on above: Performed By: #### C MPX, CDP #### [address] [address] [employer]: Michael Chen MD RBC (Bld) [#/Vol] 2.62 10*6/uL Low 3.95-5.11 [facility] Comment on above: Performed By: #### C MPX, CDP #### [address] [address] [employer]: Michael Chen MD WBC (Bld) [#/Vol] 8.6 10*3/uL Normal 3.5-11.3 [facility] Comment on above: Performed By: #### C MPX, CDP #### [address] [address] [employer]: Michael Chen MD CTA HEAD NECK W CONTRASTon 0 01-29-2024 CTA HEAD NECK W CONTRAST EXAMINATION: CTA OF THE HEAD AND NECK WITH CONTRAST 01/29/2024 3:33 pm: TECHNIQUE: CTA of the head and neck was performed with the administration of intravenous contrast. Multiplanar reformatted images are provided for review. MIP images are provided for review. Stenosis of the internal carotid arteries measured using NASCET criteria. Automated exposure control, iterative reconstruction, and/or weight based adjustment of the mA/kV was utilized to reduce the radiation dose to as low as reasonably achievable. COMPARISON: CT head and neck January 22, 2024 HISTORY: ORDERING SYSTEM PROVIDED HISTORY: L V2 dissection TECHNOLOGIST PROVIDED HISTORY: L V2 dissection Reason for Exam: L V2 dissection FINDINGS: CTA NECK: AORTIC ARCH/ARCH VESSELS: No dissection or arterial injury. No significant stenosis of the brachiocephalic or subclavian arteries. CAROTID ARTERIES: No dissection, arterial injury, or hemodynamically significant stenosis by NASCET criteria. VERTEBRAL ARTERIES: There is severe stenosis and focal dissection in the distal V2 segment of the left vertebral artery, stable. No acute abnormality or flow-limiting stenosis of the right vertebral artery SOFT TISSUES: There is ground-glass attenuation at the lung apices, likely related to underdistention versus minimal pulmonary vascular congestion. No cervical or superior mediastinal lymphadenopathy. The larynx and pharynx are unremarkable. No acute abnormality of the salivary and thyroid glands. BONES: There are known acute type 2 dens fracture and C1 fracture, status post C1-2 posterior instrumented fusion. CTA HEAD: ANTERIOR CIRCULATION: No significant stenosis of the intracranial internal carotid, anterior cerebral, or middle cerebral arteries. There is 3 mm saccular aneurysm along the supraclinoid segment of the right internal carotid artery. POSTERIOR CIRCULATION: No significant stenosis of the vertebral, basilar, or posterior cerebral arteries. No aneurysm. OTHER: No dural venous sinus thrombosis on this non-dedicated study. BRAIN: No mass effect or midline shift. No extra-axial fluid collection. The childers-white differentiation is maintained. 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 Otherwise, no new acute abnormality or new flow-limiting stenosis of the remainder of the major arteries of the head and neck. 3 mm saccular aneurysm along the supraclinoid segment of the right internal carotid artery. Known acute type 2 dens fracture and C1 fracture, status post C1-2 posterior instrumented fusion. Interpreted by: Flavio Pierson MD Signed by: Flavio Pierson MD 01/29/24 Final result Normal [facility] Comp Metabolic Pr/rfx MGon 0 01-29-2024 Albumin [Mass/Vol] 3.0 g/dL Low 3.5-5.2 [facility] Comment on above: Performed By: #### C MPX, CDP #### [address] [address] [employer]: Michael Chen MD Albumin/Glob Ratio 1.0 Normal 1.0-2.5 [facility] Comment on above: Performed By: #### C MPX, CDP #### [facility] [address] [place] [phone] [employer]: Michael Chen MD Alkaline Phos 205 U/L High 35-104 [facility] Comment on above: Performed By: #### C MPX, CDP #### [facility] [address] [place] [phone] [employer]: Michael Chen MD ALT [Catalytic activity/Vol] U/L Low 10-35 [facility] Comment on above: Performed By: #### C MPX, CDP #### [facility] [address] [place] [phone] [employer]: Michael Chen MD Anion gap [Moles/Vol] 11 mmol/L Normal 9-16 [facility] Comment on above: Performed By: #### C MPX, CDP #### [facility] [address] [place] [phone] [employer]: Michael Chen MD AST [Catalytic activity/Vol] 27 U/L Normal 10-35 [facility] Comment on above: Performed By: #### C MPX, CDP #### [facility] [address] [place] [phone] [employer]: Michael Chen MD Bilirubin [Mass/Vol] 0.2 mg/dL Normal 0.00-1.20 [facility] Comment on above: Performed By: #### C MPX, CDP #### [facility] [address] [place] [address] [employer]: Michael Chen MD Calcium [Mass/Vol] 8.0 mg/dL Low 8.6-10.4 [facility] Comment on above: Performed By: #### C MPX, CDP #### [facility] [address] [place] [phone] [employer]: Michael Chen MD Chloride [Moles/Vol] 101 mmol/L Normal 98-107 [facility] Comment on above: Performed By: #### C MPX, CDP #### [facility] [address] [place] [phone] [employer]: Michael Chen MD CO2 [Moles/Vol] 19 mmol/L Low 20-31 [facility] Comment on above: Performed By: #### C MPX, CDP #### [facility] [address] [place] [phone] [employer]: Michael Chen MD Creatinine [Mass/Vol] 1.6 mg/dL High 0.50-0.90 [facility] Comment on above: Performed By: #### C MPX, CDP #### [address] [address] [employer]: Michael Chen MD GFR/1.73 sq M.predicted among non-blacks MDRD (S/P/Bld) [Vol rate/Area] 38 mL/min/{1.73_m2} Low >60 [facility] Comment on above: Result Comment: These [...] renal tubular secretion. Performed By: #### C MPX, CDP #### [facility] [address] [place] [phone] [employer]: Michael Chen MD Glucose [Mass/Vol] 90 mg/dL Normal 74-99 [facility] Comment on above: Performed By: #### C MPX, CDP #### [facility] [address] [place] [phone] [employer]: Michael Chen MD Potassium [Moles/Vol] 4.4 mmol/L Normal 3.7-5.3 [facility] Comment on above: Performed By: #### C MPX, CDP #### [facility] [address] [place] [phone] [employer]: Michael Chen MD Protein [Mass/Vol] 5.4 g/dL Low 6.6-8.7 [facility] Comment on above: Performed By: #### C MPX, CDP #### [facility] [address] [place] [phone] [employer]: Michael Chen MD Sodium [Moles/Vol] 131 mmol/L Low 136-145 [facility] Comment on above: Performed By: #### C MPX, CDP #### [facility] [employer] [address] [place] [phone] [employer]: Michael Chen MD Urea nitrogen [Mass/Vol] 46 mg/dL High 8-23 [facility] Comment on above: Performed By: #### C MPX, CDP #### [facility] [address] [place] [phone] [employer]: Michael Chen MD Magnesiumon 01-29-2024 Magnesium [Mass/Vol] 2.1 mg/dL Normal 1.6-2.4 [facility] Comment on above: Performed By: #### M G #### [facility] [address] [place] [phone] [employer]: Michael Chen MD Basic Metab w/rfx MGon 01-27 Anion gap [Moles/Vol] 10 mmol/L Normal 9-16 [facility] Comment on above: Performed By: #### C MPX, CDP #### [facility] [address] [place] [phone] [employer]: Michael Chen MD Calcium [Mass/Vol] 7.5 mg/dL Low 8.6-10.4 [facility] Comment on above: Performed By: #### C MPX, CDP #### [facility] [address] [place] [phone] [employer]: Michael Chen MD Chloride [Moles/Vol] 101 mmol/L Normal 98-107 [facility] Comment on above: Performed By: #### C MPX, CDP #### [facility] [address] [place] [phone] [employer]: Michael Chen MD CO2 [Moles/Vol] 22 mmol/L Normal 20-31 [facility] Comment on above: Performed By: #### C MPX, CDP #### [facility] [address] [place] [phone] [employer]: Michael Chen MD Creatinine [Mass/Vol] 1.8 mg/dL High 0.50-0.90 [facility] Comment on above: Performed By: #### C MPX, CDP #### [facility] [address] [place] [phone] [employer]: Michael Chen MD GFR/1.73 sq M.predicted among non-blacks MDRD (S/P/Bld) [Vol rate/Area] 33 mL/min/{1.73_m2} Low >60 [facility] Comment on above: Result Comment: These [...] renal tubular secretion. Performed By: #### C MPX, CDP #### [facility] [address] [place] [phone] [employer]: Michael Chen MD Glucose [Mass/Vol] 92 mg/dL Normal 74-99 [facility] Comment on above: Performed By: #### C MPX, CDP #### [address] [address] [employer]: Michael Chen MD Potassium [Moles/Vol] 4.6 mmol/L Normal 3.7-5.3 [facility] Comment on above: Performed By: #### C MPX, CDP #### [address] [address] [employer]: Michael Chen MD Sodium [Moles/Vol] 133 mmol/L Low 136-145 [facility] Comment on above: Performed By: #### C MPX, CDP #### [address] [address] [employer]: Michael Chen MD Urea nitrogen [Mass/Vol] 46 mg/dL High 8-23 [facility] Comment on above: Performed By: #### C MPX, CDP #### [address] [address] [employer]: Michael Chen MD CBC with Diffon 01-28-2024 Abs. Basophil <0.03 Normal 0.00-0.20 [facility] Comment on above: Performed By: #### C MPX, CDP #### [facility] [address] [employer]: Michael Chen MD Abs.Imm.Granulocyte 0.13 k/uL Normal 0.00-0.30 [facility] Comment on above: Performed By: #### C MPX, CDP #### [address] [address] [employer]: Michael Chen MD Abs.Neutrophil (Seg) 4.37 k/uL Normal 1.50-8.10 [facility] Comment on above: Performed By: #### C MPX, CDP #### [address] [address] [employer]: Michael Chen MD Basophils/100 WBC (Bld) 0 % Normal 0-2 [facility] Comment on above: Performed By: #### C MPX, CDP #### [address] [address] [employer]: Michael Chen MD Eosinophils (Bld) [#/Vol] 0.25 10*3/uL Normal 0.00-0.44 [facility] Comment on above: Performed By: #### C MPX, CDP #### [address] [address] [employer]: Michael Chen MD Eosinophils/100 WBC (Bld) 4 % Normal 1-4 [facility] Comment on above: Performed By: #### C MPX, CDP #### [address] [address] [employer]: Michael Chen MD Immature granulocytes/100 WBC (Bld) 2 % High 0 [facility] Comment on above: Performed By: #### C MPX, CDP #### [address] [address] [employer]: Michael Chen MD Lymphocytes (Bld) [#/Vol] 1.15 10*3/uL Normal 1.10-3.70 [facility] Comment on above: Performed By: #### C MPX, CDP #### [address] [address] [employer]: Michael Chen MD Lymphocytes/100 WBC (Bld) 18 % Low 24-43 [facility] Comment on above: Performed By: #### C MPX, CDP #### [address] [address] [employer]: Michael Chen MD Monocytes (Bld) [#/Vol] 0.59 10*3/uL Normal 0.10-1.20 [facility] Comment on above: Performed By: #### C MPX, CDP #### [address] [address] [employer]: Michael Chen MD Monocytes/100 WBC (Bld) 9 % Normal 3-12 [facility] Comment on above: Performed By: #### C MPX, CDP #### [address] [address] [employer]: Michael Chen MD Neutrophil (Seg) 67 % High 36-65 [facility] Comment on above: Performed By: #### C MPX, CDP #### [address] [address] [employer]: Michael Chen MD Erythrocyte distribution width (RBC) [Ratio] 13.6 % Normal 11.8-14.4 [facility] Comment on above: Performed By: #### C MPX, CDP #### [facility] [address] [place] [address] [employer]: Michael Chen MD Hematocrit (Bld) [Volume fraction] 24.0 % Low 36.3-47.1 [facility] Comment on above: Performed By: #### C MPX, CDP #### [facility] [address] [place] [address] [employer]: Michael Chen MD Hemoglobin (Bld) [Mass/Vol] 7.1 g/dL Low 11.9-15.1 [facility] Comment on above: Performed By: #### C MPX, CDP #### [facility] [address] [place] [address] [employer]: Michael Chen MD MCH (RBC) [Entitic mass] 29.6 pg Normal 25.2-33.5 [facility] Comment on above: Performed By: #### C MPX, CDP #### [facility] [address] [place] [address] [employer]: Michael Chen MD MCHC (RBC) [Mass/Vol] 29.6 g/dL Normal 28.4-34.8 [facility] Comment on above: Performed By: #### C MPX, CDP #### [facility] [address] [place] [address] [employer]: Michael Chen MD MCV (RBC) [Entitic vol] 100.0 fL Normal 82.6-102.9 [facility] Comment on above: Performed By: #### C MPX, CDP #### [address] [address] [employer]: Michael Chen MD NRBC Automated 0.0 per 100 WBC Normal 0.0 [facility] Comment on above: Performed By: #### C MPX, CDP #### [facility] [address] [place] [phone] [employer]: Michael Chen MD Platelet mean volume (Bld) [Entitic vol] 9.2 fL Normal 8.1-13.5 [facility] Comment on above: Performed By: #### C MPX, CDP #### [address] [place] [address] [employer]: Michael Chen MD Platelets (Bld) [#/Vol] 222 10*3/uL Normal 138-453 [facility] Comment on above: Performed By: #### C MPX, CDP #### [facility] [place] [address] [employer]: Michael Chen MD RBC (Bld) [#/Vol] 2.40 10*6/uL Low 3.95-5.11 [facility] Comment on above: Performed By: #### C MPX, CDP #### [facility] [address] [place] [address] [employer]: Michael Chen MD WBC (Bld) [#/Vol] 6.5 10*3/uL Normal 3.5-11.3 [facility] Comment on above: Performed By: #### C MPX, CDP #### [address] [address] [employer]: Michael Chen MD Magnesiumon 01-28-2024 Magnesium [Mass/Vol] 1.6 mg/dL Normal 1.6-2.4 [facility] Comment on above: Performed By: #### C MPX, CDP #### [address] [address] [employer]: Michael Chen MD Basic Metab w/rfx MGon 01-26 Anion gap [Moles/Vol] 11 mmol/L Normal 9-16 [facility] Comment on above: Performed By: #### C MPX, CDP #### [address] [address] [employer]: Michael Chen MD Calcium [Mass/Vol] 7.4 mg/dL Low 8.6-10.4 [facility] Comment on above: Performed By: #### C MPX, CDP #### [facility] [place] [address] [employer]: Michael Chen MD Chloride [Moles/Vol] 102 mmol/L Normal 98-107 [facility] Comment on above: Performed By: #### C MPX, CDP #### [facility] [address] [place] [address] [employer]: Michael Chen MD CO2 [Moles/Vol] 21 mmol/L Normal 20-31 [facility] Comment on above: Performed By: #### C MPX, CDP #### [facility] [address] [place] [address] [employer]: Michael Chen MD Creatinine [Mass/Vol] 1.6 mg/dL High 0.50-0.90 [facility] Comment on above: Performed By: #### C MPX, CDP #### [facility] [address] [place] [address] [employer]: Michael Chen MD GFR/1.73 sq M.predicted among non-blacks MDRD (S/P/Bld) [Vol rate/Area] 36 mL/min/{1.73_m2} Low >60 [facility] Comment on above: Result Comment: These [...] renal tubular secretion. Performed By: #### C MPX, CDP #### [facility] [address] [place] [address] [employer]: Michael Chen MD Glucose [Mass/Vol] 169 mg/dL High 74-99 [facility] Comment on above: Performed By: #### C MPX, CDP #### [facility] [address] [place] [address] [employer]: Michael Chen MD Potassium [Moles/Vol] 4.4 mmol/L Normal 3.7-5.3 [facility] Comment on above: Performed By: #### C MPX, CDP #### [facility] [address] [place] [address] [employer]: Michael Chne MD Sodium [Moles/Vol] 134 mmol/L Low 136-145 [facility] Comment on above: Performed By: #### C MPX, CDP #### [facility] [address] [place] [address] [employer]: Michael Chen MD Urea nitrogen [Mass/Vol] 42 mg/dL High 8-23 [facility] Comment on above: Performed By: #### C MPX, CDP #### [facility] [address] [place] [address] [employer]: Michael Chen MD CBC with Diffon 01-27-2024 Abs. Basophil <0.03 Normal 0.00-0.20 [facility] Comment on above: Performed By: #### C MPX, CDP #### [facility] [address] [place] [address] [employer]: Michael Chen MD Abs.Imm.Granulocyte 0.06 k/uL Normal 0.00-0.30 [facility] Comment on above: Performed By: #### C MPX, CDP #### [facility] [address] [place] [address] [employer]: Michael Chen MD Abs.Neutrophil (Seg) 5.93 k/uL Normal 1.50-8.10 [facility] Comment on above: Performed By: #### C MPX, CDP #### [facility] [address] [place] [address] [employer]: Michael Chen MD Basophils/100 WBC (Bld) 0 % Normal 0-2 [facility] Comment on above: Performed By: #### C MPX, CDP #### [address] [address] [employer]: Michael Chen MD Eosinophils (Bld) [#/Vol] 0.17 10*3/uL Normal 0.00-0.44 [facility] Comment on above: Performed By: #### C MPX, CDP #### [facility] [address] [place] [address] [employer]: Michael Chen MD Eosinophils/100 WBC (Bld) 2 % Normal 1-4 [facility] Comment on above: Performed By: #### C MPX, CDP #### [address] [address] [employer]: Michael Chen MD Erythrocyte distribution width (RBC) [Ratio] 13.8 % Normal 11.8-14.4 [facility] Comment on above: Performed By: #### C MPX, CDP #### [address] [address] [employer]: Michael Chen MD Hematocrit (Bld) [Volume fraction] 26.3 % Low 36.3-47.1 [facility] Comment on above: Performed By: #### C MPX, CDP #### [facility] [address] [place] [address] [employer]: Michael Chen MD Hemoglobin (Bld) [Mass/Vol] 7.8 g/dL Low 11.9-15.1 [facility] Comment on above: Performed By: #### C MPX, CDP #### [facility] [address] [place] [address] [employer]: Michael Chen MD Immature granulocytes/100 WBC (Bld) 1 % High 0 [facility] Comment on above: Performed By: #### C MPX, CDP #### [place] [address] [employer]: Michael Chen MD Lymphocytes (Bld) [#/Vol] 0.79 10*3/uL Low 1.10-3.70 [facility] Comment on above: Performed By: #### C MPX, CDP #### [place] [address] [employer]: Michael Chen MD Lymphocytes/100 WBC (Bld) 11 % Low 24-43 [facility] Comment on above: Performed By: #### C MPX, CDP #### [place] [address] [employer]: Michael Chen MD MCH (RBC) [Entitic mass] 29.8 pg Normal 25.2-33.5 [facility] Comment on above: Performed By: #### C MPX, CDP #### [place] [address] [employer]: Michael Chen MD MCHC (RBC) [Mass/Vol] 29.7 g/dL Normal 28.4-34.8 [facility] Comment on above: Performed By: #### C MPX, CDP #### [place] [address] [employer]: Michael Chen MD MCV (RBC) [Entitic vol] 100.4 fL Normal 82.6-102.9 [facility] Comment on above: Performed By: #### C MPX, CDP #### [place] [address] [employer]: Michael Chen MD Monocytes (Bld) [#/Vol] 0.38 10*3/uL Normal 0.10-1.20 [facility] Comment on above: Performed By: #### C MPX, CDP #### [address] [address] [employer]: Michael Chen MD Monocytes/100 WBC (Bld) 5 % Normal 3-12 [facility] Comment on above: Performed By: #### C MPX, CDP #### [address] [address] [employer]: Michael Chen MD Neutrophil (Seg) 81 % High 36-65 [facility] Comment on above: Performed By: #### C MPX, CDP #### [address] [address] [employer]: Michael Chen MD NRBC Automated 0.0 per 100 WBC Normal 0.0 [facility] Comment on above: Performed By: #### C MPX, CDP #### [address] [address] [employer]: Michael Chen MD Platelet mean volume (Bld) [Entitic vol] 9.6 fL Normal 8.1-13.5 [facility] Comment on above: Performed By: #### C MPX, CDP #### [address] [address] [employer]: Michael Chen MD Platelets (Bld) [#/Vol] 239 10*3/uL Normal 138-453 [facility] Comment on above: Performed By: #### C MPX, CDP #### [address] [address] [employer]: Michael Chen MD RBC (Bld) [#/Vol] 2.62 10*6/uL Low 3.95-5.11 [facility] Comment on above: Performed By: #### C MPX, CDP #### [address] [address] [employer]: Michael Chen MD WBC (Bld) [#/Vol] 7.3 10*3/uL Normal 3.5-11.3 [facility] Comment on above: Performed By: #### C MPX, CDP #### [employer] [id number] [place] [address] [employer]: Michael Chen MD CT CERVICAL SPINE WO CONTRAS Ton 01-27-2024 CT CERVICAL SPINE WO CONTRAST EXAMINATION: CT OF THE CERVICAL SPINE WITHOUT CONTRAST 01/27/2024 7:48 am TECHNIQUE: CT of the cervical spine was performed without the administration of intravenous contrast. Multiplanar reformatted images are provided for review. Automated exposure control, iterative reconstruction, and/or weight based adjustment of the mA/kV was utilized to reduce the radiation dose to as low as reasonably achievable. COMPARISON: Cervical spine radiograph 01/26/2024. MRI of the cervical spine 01/22/2024. CT cervical spine 01/22/2024. HISTORY: ORDERING SYSTEM PROVIDED HISTORY: Postop C1-C2 fusion. TECHNOLOGIST PROVIDED HISTORY: Postop C1-C2 fusion. FINDINGS: BONES/ALIGNMENT: Normal bone mineral density. The occipital atlantal articulation demonstrates normal alignment with mild arthropathy. Patient is status post C1/2 posterior fusion. There are bilateral screws engaging the C1 lateral masses on the right. This extends through the anterior cortex and is proud of the cortex approximately 0.2 cm. On the left this extends through the lateral mass superior articular facet with the screw superior surface abutting the occipital condyle. Stable nondisplaced C1 right posterior arch fracture with apparent interval partial resection of the left posterior arch. There are 2 screws which engage the C2 pedicles. The inserted hardware is intact. The odontoid and C1 arch demonstrates stable anatomic alignment. The chronic type 2 odontoid fracture demonstrates anatomic alignment. There is stable 0.9 cm right lateral grade 2 subluxation of the C1 lateral mass with respect to C2. Stable atlantoaxial arthropathy. C2 through C1 demonstrate normal curvature, alignment, and heights. Stable multilevel degenerative disc and joint disease. Stable ankylosis of the right C3 and 4 articular facets. SOFT TISSUES: Postsurgical free air in the posterior vertebral canal and neck soft tissues. There is symmetric paraspinous muscular atrophy. At the posterior approach there is a approximately 2.3 x 3.4 cm fluid collection with scattered internal gas foci. The visualized lung apices demonstrate no acute abnormality. IMPRESSION: 1. Status post C1/2 posterior fusion with hardware as described above. Anatomic alignment of the chronic type 2 odontoid fracture. Stable grade 2 right lateral subluxation of the lateral atlantoaxial articulations. 2. No acute osseous abnormality. 3. Expected postsurgical changes with a seroma at the posterior neck soft tissues. No evidence of a hematoma. Interpreted by: Alex Hickman MD Signed by: Alex Hickman MD 01/27/24 Final result Normal [facility] Basic Metab w/rfx MGon 01-25 Anion gap [Moles/Vol] 8 mmol/L Low 9-16 [facility] Comment on above: Performed By: #### C DP, BMPX #### [place] [address] [employer]: Michael Chen MD Calcium [Mass/Vol] 7.8 mg/dL Low 8.6-10.4 [facility] Comment on above: Performed By: #### C DP, BMPX #### [place] [address] [employer]: Michael Chen MD Chloride [Moles/Vol] 104 mmol/L Normal 98-107 [facility] Comment on above: Performed By: #### C DP, BMPX #### [facility] [address] [place] [address] [employer]: Michael Chen MD CO2 [Moles/Vol] 23 mmol/L Normal 20-31 [facility] Comment on above: Performed By: #### C DP, BMPX #### [facility] [address] [place] [address] [employer]: Michael Chen MD Creatinine [Mass/Vol] 1.6 mg/dL High 0.50-0.90 [facility] Comment on above: Performed By: #### C DP, BMPX #### [address] [address] [employer]: Michael Chen MD GFR/1.73 sq M.predicted among non-blacks MDRD (S/P/Bld) [Vol rate/Area] 38 mL/min/{1.73_m2} Low >60 [facility] Comment on above: Result Comment: These [...] Performed By: #### C DP, BMPX #### [address] [address] [employer]: Michael Chen MD Glucose [Mass/Vol] 109 mg/dL High 74-99 [facility] Comment on above: Performed By: #### C DP, BMPX #### [address] [address] [employer]: Michael Chen MD Potassium [Moles/Vol] 5.3 mmol/L Normal 3.7-5.3 [facility] Comment on above: Performed By: #### C DP, BMPX #### [facility] [address] [place] [address] [employer]: Michael Chen MD Sodium [Moles/Vol] 135 mmol/L Low 136-145 [facility] Comment on above: Performed By: #### C DP, BMPX #### [facility] [address] [place] [address] [employer]: Michael Chen MD Urea nitrogen [Mass/Vol] 40 mg/dL High 8-23 [facility] Comment on above: Performed By: #### C DP, BMPX #### [facility] [address] [place] [address] [employer]: Michael Chen MD Anion gap [Moles/Vol] 11 mmol/L Normal 9-16 [facility] Comment on above: Performed By: #### C DP, BMPX #### [address] [address] [employer]: Michael Chen MD Calcium [Mass/Vol] 7.6 mg/dL Low 8.6-10.4 [facility] Comment on above: Performed By: #### C DP, BMPX #### [facility] [address] [place] [address] [employer]: Michael Chen MD Chloride [Moles/Vol] 102 mmol/L Normal 98-107 [facility] Comment on above: Performed By: #### C DP, BMPX #### [facility] [address] [place] [address] [employer]: Michael Chen MD CO2 [Moles/Vol] 20 mmol/L Normal 20-31 [facility] Comment on above: Performed By: #### C DP, BMPX #### [facility] [address] [place] [address] [employer]: Michael Chen MD Creatinine [Mass/Vol] 1.7 mg/dL High 0.50-0.90 [facility] Comment on above: Performed By: #### C DP, BMPX #### [facility] [address] [place] [address] [employer]: Michael Chen MD GFR/1.73 sq M.predicted among non-blacks MDRD (S/P/Bld) [Vol rate/Area] 35 mL/min/{1.73_m2} Low >60 [facility] Comment on above: Result Comment: These [...] Performed By: #### C DP, BMPX #### [facility] [address] [place] [address] [employer]: Michael Chen MD Glucose [Mass/Vol] 106 mg/dL High 74-99 [facility] Comment on above: Performed By: #### C DP, BMPX #### [facility] [address] [place] [address] [employer]: Michael Chen MD Potassium [Moles/Vol] 5.0 mmol/L Normal 3.7-5.3 [facility] Comment on above: Performed By: #### C DP, BMPX #### [facility] [address] [place] [address] [employer]: Michael Chen MD Sodium [Moles/Vol] 133 mmol/L Low 136-145 [facility] Comment on above: Performed By: #### C DP, BMPX #### [facility] [address] [place] [address] [employer]: Michael Chen MD Urea nitrogen [Mass/Vol] 46 mg/dL High 8-23 [facility] Comment on above: Performed By: #### C DP, BMPX #### [facility] [address] [place] [address] [employer]: Michael Chen MD CBC with Diffon 01-26-2024 Abs. Basophil <0.03 Normal 0.00-0.20 [facility] Comment on above: Performed By: #### C DP, BMPX #### [facility] [address] [place] [phone] [employer]: Michael Chen MD Abs.Imm.Granulocyte 0.13 k/uL Normal 0.00-0.30 [facility] Comment on above: Performed By: #### C DP, BMPX #### [address] [address] [employer]: Michael Chen MD Abs.Neutrophil (Seg) 8.21 k/uL High 1.50-8.10 [facility] Comment on above: Performed By: #### C DP, BMPX #### [address] [address] [employer]: Michael Chen MD Basophils/100 WBC (Bld) 0 % Normal 0-2 [facility] Comment on above: Performed By: #### C DP, BMPX #### [address] [address] [employer]: Michael Chen MD Eosinophils (Bld) [#/Vol] 0.19 10*3/uL Normal 0.00-0.44 [facility] Comment on above: Performed By: #### C DP, BMPX #### [address] [address] [employer]: Michael Chen MD Eosinophils/100 WBC (Bld) 2 % Normal 1-4 [facility] Comment on above: Performed By: #### C DP, BMPX #### [address] [address] [employer]: Michael Chen MD Erythrocyte distribution width (RBC) [Ratio] 13.9 % Normal 11.8-14.4 [facility] Comment on above: Performed By: #### C DP, BMPX #### [facility] [address] [place] [address] [employer]: Michael Chen MD Hematocrit (Bld) [Volume fraction] 28.3 % Low 36.3-47.1 [facility] Comment on above: Performed By: #### C DP, BMPX #### [place] [address] [employer]: Michael Chen MD Hemoglobin (Bld) [Mass/Vol] 8.6 g/dL Low 11.9-15.1 [facility] Comment on above: Performed By: #### C DP, BMPX #### [place] [address] [employer]: Michael Chen MD Immature granulocytes/100 WBC (Bld) 1 % High 0 [facility] Comment on above: Performed By: #### C DP, BMPX #### [place] [address] [employer]: Michael Chen MD Lymphocytes (Bld) [#/Vol] 1.09 10*3/uL Low 1.10-3.70 [facility] Comment on above: Performed By: #### C DP, BMPX #### [place] [address] [employer]: Michael Chen MD Lymphocytes/100 WBC (Bld) 10 % Low 24-43 [facility] Comment on above: Performed By: #### C DP, BMPX #### [place] [address] [employer]: Michael Chen MD MCH (RBC) [Entitic mass] 29.5 pg Normal 25.2-33.5 [facility] Comment on above: Performed By: #### C DP, BMPX #### [place] [address] [employer]: Michael Chen MD MCHC (RBC) [Mass/Vol] 30.4 g/dL Normal 28.4-34.8 [facility] Comment on above: Performed By: #### C DP, BMPX #### [address] [address] [employer]: Michael Chen MD MCV (RBC) [Entitic vol] 96.9 fL Normal 82.6-102.9 [facility] Comment on above: Performed By: #### C DP, BMPX #### [address] [address] [employer]: Michael Chen MD Monocytes (Bld) [#/Vol] 0.85 10*3/uL Normal 0.10-1.20 [facility] Comment on above: Performed By: #### C DP, BMPX #### [address] [address] [employer]: Michael Chen MD Monocytes/100 WBC (Bld) 8 % Normal 3-12 [facility] Comment on above: Performed By: #### C DP, BMPX #### [address] [address] [employer]: Michael Chen MD Neutrophil (Seg) 79 % High 36-65 [facility] Comment on above: Performed By: #### C DP, BMPX #### [address] [address] [employer]: Michael Chen MD NRBC Automated 0.0 per 100 WBC Normal 0.0 [facility] Comment on above: Performed By: #### C DP, BMPX #### [address] [address] [employer]: Michael Chen MD Platelet mean volume (Bld) [Entitic vol] 9.7 fL Normal 8.1-13.5 [facility] Comment on above: Performed By: #### C DP, BMPX #### [address] [address] [employer]: Michael Chen MD Platelets (Bld) [#/Vol] 270 10*3/uL Normal 138-453 [facility] Comment on above: Performed By: #### C DP, BMPX #### [address] [address] [employer]: Michael Chen MD RBC (Bld) [#/Vol] 2.92 10*6/uL Low 3.95-5.11 [facility] Comment on above: Performed By: #### C DP, BMPX #### [address] [address] [employer]: Michael Chen MD WBC (Bld) [#/Vol] 10.5 10*3/uL Normal 3.5-11.3 [facility] Comment on above: Performed By: #### C DP, BMPX #### [address] [address] [employer]: Michael Chen MD Abs. Basophil 0.03 k/uL Normal 0.00-0.20 [facility] Comment on above: Performed By: #### C DP, BMPX #### [address] [address] [employer]: Michael Chen MD Abs.Imm.Granulocyte 0.08 k/uL Normal 0.00-0.30 [facility] Comment on above: Performed By: #### C DP, BMPX #### [facility] [address] [place] [phone] [employer]: Michael Chen MD Abs.Neutrophil (Seg) 12.75 k/uL High 1.50-8.10 [facility] Comment on above: Performed By: #### C DP, BMPX #### [facility] [address] [place] [phone] [employer]: Michael Chen MD Basophils/100 WBC (Bld) 0 % Normal 0-2 [facility] Comment on above: Performed By: #### C DP, BMPX #### [address] [address] [employer]: Michael Chen MD Eosinophils (Bld) [#/Vol] 0.16 10*3/uL Normal 0.00-0.44 [facility] Comment on above: Performed By: #### C DP, BMPX #### [address] [address] [employer]: Michael Chen MD Eosinophils/100 WBC (Bld) 1 % Normal 1-4 [facility] Comment on above: Performed By: #### C DP, BMPX #### [address] [address] [employer]: Michael Chen MD Erythrocyte distribution width (RBC) [Ratio] 13.7 % Normal 11.8-14.4 [facility] Comment on above: Performed By: #### C DP, BMPX #### [address] [address] [employer]: Michael Chen MD Hematocrit (Bld) [Volume fraction] 28.8 % Low 36.3-47.1 [facility] Comment on above: Performed By: #### C DP, BMPX #### [place] [address] [employer]: Michael Chen MD Hemoglobin (Bld) [Mass/Vol] 8.8 g/dL Low 11.9-15.1 [facility] Comment on above: Performed By: #### C DP, BMPX #### [facility] [address] [place] [phone] [employer]: Michael Chen MD Immature granulocytes/100 WBC (Bld) 1 % High 0 [facility] Comment on above: Performed By: #### C DP, BMPX #### [place] [address] [employer]: Michael Chen MD Lymphocytes (Bld) [#/Vol] 1.15 10*3/uL Normal 1.10-3.70 [facility] Comment on above: Performed By: #### C DP, BMPX #### [place] [address] [employer]: Michael Chen MD Lymphocytes/100 WBC (Bld) 8 % Low 24-43 [facility] Comment on above: Performed By: #### C DP, BMPX #### [place] [address] [employer]: Michael Chen MD MCH (RBC) [Entitic mass] 29.6 pg Normal 25.2-33.5 [facility] Comment on above: Performed By: #### C DP, BMPX #### [place] [address] [employer]: Michael Chen MD MCHC (RBC) [Mass/Vol] 30.6 g/dL Normal 28.4-34.8 [facility] Comment on above: Performed By: #### C DP, BMPX #### [place] [address] [employer]: Michael Chen MD MCV (RBC) [Entitic vol] 97.0 fL Normal 82.6-102.9 [facility] Comment on above: Performed By: #### C DP, BMPX #### [place] [address] [employer]: Michael Chen MD Monocytes (Bld) [#/Vol] 0.77 10*3/uL Normal 0.10-1.20 [facility] Comment on above: Performed By: #### C DP, BMPX #### [address] [address] [employer]: Michael Chen MD Monocytes/100 WBC (Bld) 5 % Normal 3-12 [facility] Comment on above: Performed By: #### C DP, BMPX #### [address] [address] [employer]: Michael Chen MD Neutrophil (Seg) 85 % High 36-65 [facility] Comment on above: Performed By: #### C DP, BMPX #### [address] [address] [employer]: Michael Chen MD NRBC Automated 0.0 per 100 WBC Normal 0.0 [facility] Comment on above: Performed By: #### C DP, BMPX #### [address] [address] [employer]: Michael Chen MD Platelet mean volume (Bld) [Entitic vol] 9.1 fL Normal 8.1-13.5 [facility] Comment on above: Performed By: #### C DP, BMPX #### [address] [address] [employer]: Michael Chen MD Platelets (Bld) [#/Vol] 269 10*3/uL Normal 138-453 [facility] Comment on above: Performed By: #### C DP, BMPX #### [address] [address] [employer]: Michael Chen MD RBC (Bld) [#/Vol] 2.97 10*6/uL Low 3.95-5.11 [facility] Comment on above: Performed By: #### C DP, BMPX #### [address] [address] [employer]: Michael Chen MD WBC (Bld) [#/Vol] 14.9 10*3/uL High 3.5-11.3 [facility] Comment on above: Performed By: #### C DP, BMPX #### [facility] [address] [place], [place] [phone] [employer]: Michael Chen MD Cult,Urineon 01-26-2024 Cult,Urine Specimen Description .INDWELLING CATH URINE Special Requests FIRST INSERTION Culture NO GROWTH Report Status FINAL 01/26/2024 Normal [facility] Comment on above: Performed By: #### U RC #### [facility] [address] [place] [address] [employer]: Michael Chen MD XR CERVICAL SPINE (2-3 VIEWS )on 01-26-2024 XR CERVICAL SPINE (2-3 VIEWS) ADDENDUM: Additional findings/impression point: Precervical soft tissue swelling, likely secondary to recent surgery. Electronically Signed by: MARCELLE ALONSO on MonJan 26, 2024 3:18:06 PM EDT EXAMINATION: 2 XRAY VIEWS OF THE CERVICAL SPINE 01/26/2024 11:11 am COMPARISON: 09/30/2023 HISTORY: ORDERING SYSTEM PROVIDED HISTORY: followup postop; UPRIGHT AP AND LATERAL TECHNOLOGIST PROVIDED HISTORY: followup postop; UPRIGHT AP AND LATERAL Postop C1-C2 fusion. followup postop; UPRIGHT AP AND LATERAL FINDINGS: The skull base through the C7 vertebral body are fully visualized on the lateral projection. Posterior fixation hardware at C1-C2. No evidence of hardware fracture or loosening. Normal alignment. No fracture. Unchanged mild anterolisthesis at C4-C5 measuring up to 2 mm. Unchanged mild to moderate multilevel degenerative disc disease. Normal visualized lung apices. Tubing overlying the chest. IMPRESSION: Posterior fixation hardware at C1-C2 without evidence of hardware complication. Unchanged mild to moderate multilevel degenerative disc disease. Interpreted by: Marcelle Alonso DO Signed by: Marcelle Alonso DO 01/26/24 Edited Result - FINAL Normal [facility] Basic Metab w/rfx MGon 01-24 Anion gap [Moles/Vol] 9 mmol/L Normal 9-16 [facility] Comment on above: Performed By: #### B MPX, CDP #### [facility] [address] [place] [address] [employer]: Michael Chen MD Calcium [Mass/Vol] 7.9 mg/dL Low 8.6-10.4 [facility] Comment on above: Performed By: #### B MPX, CDP #### [facility] [address] [place] [phone] [employer]: Michael Chen MD Chloride [Moles/Vol] 105 mmol/L Normal 98-107 [facility] Comment on above: Performed By: #### B MPX, CDP #### [facility] [address] [place] [address] [employer]: Michael Chen MD CO2 [Moles/Vol] 22 mmol/L Normal 20-31 [facility] Comment on above: Performed By: #### B MPX, CDP #### [facility] [address] [place] [address] [employer]: Michael Chen MD Creatinine [Mass/Vol] 1.7 mg/dL High 0.50-0.90 [facility] Comment on above: Performed By: #### B MPX, CDP #### [facility] [address] [place] [address] [employer]: Michael Chen MD GFR/1.73 sq M.predicted among non-blacks MDRD (S/P/Bld) [Vol rate/Area] 33 mL/min/{1.73_m2} Low >60 [facility] Comment on above: Result Comment: These [...] affects renal tubular secretion. Performed By: #### B MPX, CDP #### [facility] [address] [place] [phone] [employer]: Michael Chen MD Glucose [Mass/Vol] 104 mg/dL High 74-99 [facility] Comment on above: Performed By: #### B MPX, CDP #### [facility] [address] [place] [phone] [employer]: Michael Chen MD Potassium [Moles/Vol] 5.1 mmol/L Normal 3.7-5.3 [facility] Comment on above: Performed By: #### B MPX, CDP #### [facility] [address] [place] [address] [employer]: Michael Chen MD Sodium [Moles/Vol] 136 mmol/L Normal 136-145 [facility] Comment on above: Performed By: #### B MPX, CDP #### [address] [address] [employer]: Michael Cehn MD Urea nitrogen [Mass/Vol] 51 mg/dL High 8-23 [facility] Comment on above: Performed By: #### B MPX, CDP #### [facility] [address] [place] [phone] [employer]: Michael Chen MD CBC with Diffon 01-25-2024 Abs. Basophil <0.03 Normal 0.00-0.20 [facility] Comment on above: Performed By: #### B MPX, CDP #### [facility] [address] [place] [phone] [employer]: Michael Chen MD Abs.Imm.Granulocyte 0.03 k/uL Normal 0.00-0.30 [facility] Comment on above: Performed By: #### B MPX, CDP #### [address] [address] [employer]: Michael Chen MD Abs.Neutrophil (Seg) 3.64 k/uL Normal 1.50-8.10 [facility] Comment on above: Performed By: #### B MPX, CDP #### [address] [address] [employer]: Michael Chen MD Basophils/100 WBC (Bld) 0 % Normal 0-2 [facility] Comment on above: Performed By: #### B MPX, CDP #### [address] [address] [employer]: Michael Chen MD Eosinophils (Bld) [#/Vol] 0.23 10*3/uL Normal 0.00-0.44 [facility] Comment on above: Performed By: #### B MPX, CDP #### [address] [address] [employer]: Michael Chen MD Eosinophils/100 WBC (Bld) 4 % Normal 1-4 [facility] Comment on above: Performed By: #### B MPX, CDP #### [address] [address] [employer]: Michael Chen MD Erythrocyte distribution width (RBC) [Ratio] 13.7 % Normal 11.8-14.4 [facility] Comment on above: Performed By: #### B MPX, CDP #### [facility] [address] [place] [address] [employer]: Michael Chen MD Hematocrit (Bld) [Volume fraction] 26.8 % Low 36.3-47.1 [facility] Comment on above: Performed By: #### B MPX, CDP #### [facility] [address] [place] [address] [employer]: Michael Chen MD Hemoglobin (Bld) [Mass/Vol] 8.0 g/dL Low 11.9-15.1 [facility] Comment on above: Performed By: #### B MPX, CDP #### [address] [address] [employer]: Michael Chen MD Immature granulocytes/100 WBC (Bld) 1 % High 0 [facility] Comment on above: Performed By: #### B MPX, CDP #### [address] [address] [employer]: Michael Chen MD Lymphocytes (Bld) [#/Vol] 1.38 10*3/uL Normal 1.10-3.70 [facility] Comment on above: Performed By: #### B MPX, CDP #### [address] [address] [employer]: Michael Chen MD Lymphocytes/100 WBC (Bld) 24 % Normal 24-43 [facility] Comment on above: Performed By: #### B MPX, CDP #### [address] [address] [employer]: Michael Chen MD MCH (RBC) [Entitic mass] 29.3 pg Normal 25.2-33.5 [facility] Comment on above: Performed By: #### B MPX, CDP #### [facility] [address] [place] [address] [employer]: Michael Chen MD MCHC (RBC) [Mass/Vol] 29.9 g/dL Normal 28.4-34.8 [facility] Comment on above: Performed By: #### B MPX, CDP #### [address] [address] [employer]: Michael Chen MD MCV (RBC) [Entitic vol] 98.2 fL Normal 82.6-102.9 [facility] Comment on above: Performed By: #### B MPX, CDP #### [address] [address] [employer]: Michael Chen MD Monocytes (Bld) [#/Vol] 0.58 10*3/uL Normal 0.10-1.20 [facility] Comment on above: Performed By: #### B MPX, CDP #### [address] [address] [employer]: Michael Chen MD Monocytes/100 WBC (Bld) 10 % Normal 3-12 [facility] Comment on above: Performed By: #### B MPX, CDP #### [address] [address] [employer]: Michael Chen MD Neutrophil (Seg) 61 % Normal 36-65 [facility] Comment on above: Performed By: #### B MPX, CDP #### [address] [address] [employer]: Michael Chen MD NRBC Automated 0.0 per 100 WBC Normal 0.0 [facility] Comment on above: Performed By: #### B MPX, CDP #### [address] [address] [employer]: Michael Chen MD Platelet mean volume (Bld) [Entitic vol] 9.1 fL Normal 8.1-13.5 [facility] Comment on above: Performed By: #### B MPX, CDP #### [address] [address] [employer]: Michael Chen MD Platelets (Bld) [#/Vol] 227 10*3/uL Normal 138-453 [facility] Comment on above: Performed By: #### B MPX, CDP #### [facility] [address] [place] [address] [employer]: Michael Chen MD RBC (Bld) [#/Vol] 2.73 10*6/uL Low 3.95-5.11 [facility] Comment on above: Performed By: #### B MPX, CDP #### [facility] [address] [place] [address] [employer]: Michael Chen MD WBC (Bld) [#/Vol] 5.9 10*3/uL Normal 3.5-11.3 [facility] Comment on above: Performed By: #### B MPX, CDP #### [facility] [address] [place] [phone] [employer]: Michael Chen MD FLUORO FOR SURGICAL PROCEDUR ESon 01-25-2024 FLUORO FOR SURGICAL PROCEDURES Radiology exam is complete. No Radiologist dictation. Please follow up with ordering provider. Final result Normal [facility] Hgb/Hcton 01-25-2024 Hematocrit (Bld) [Volume fraction] 30.8 % Low 36.3-47.1 [facility] Comment on above: Performed By: #### C DP, BMPX #### [facility] [address] [place] [phone] [employer]: Michael Chen MD Hemoglobin (Bld) [Mass/Vol] 9.5 g/dL Low 11.9-15.1 [facility] Comment on above: Performed By: #### C DP, BMPX #### [facility] [address] [place] [phone] [employer]: Michael Chen MD Basic Metab w/rfx MGon 01-23 Anion gap [Moles/Vol] 10 mmol/L Normal 9-16 [facility] Comment on above: Performed By: #### C DP, BMPX #### [employer] [place] [address] [employer]: Michael Chen MD Calcium [Mass/Vol] 8.2 mg/dL Low 8.6-10.4 [facility] Comment on above: Performed By: #### C DP, BMPX #### [facility] [address] [place] [address] [employer]: Michael Chen MD Chloride [Moles/Vol] 104 mmol/L Normal 98-107 [facility] Comment on above: Performed By: #### C DP, BMPX #### [facility] [address] [place] [address] [employer]: Michael Chen MD CO2 [Moles/Vol] 22 mmol/L Normal 20-31 [facility] Comment on above: Performed By: #### C DP, BMPX #### [facility] [address] [place] [address] [employer]: Michael Chen MD Creatinine [Mass/Vol] 1.7 mg/dL High 0.50-0.90 [facility] Comment on above: Performed By: #### C DP, BMPX #### [facility] [address] [place] [phone] [employer]: Micheal Chen MD GFR/1.73 sq M.predicted among non-blacks MDRD (S/P/Bld) [Vol rate/Area] 34 mL/min/{1.73_m2} Low >60 [facility] Comment on above: Result Comment: These [...] Performed By: #### C DP, BMPX #### [employer] [address] [place] [phone] [employer]: Michael Chen MD Glucose [Mass/Vol] 100 mg/dL High 74-99 [facility] Comment on above: Performed By: #### C DP, BMPX #### [address] [address] [employer]: Michael Chen MD Potassium [Moles/Vol] 4.9 mmol/L Normal 3.7-5.3 [facility] Comment on above: Result Comment: SPEC IMEN SLIGHTLY HEMOLYZED, RESULTS MAY BE ADVERSELY AFFECTED. Performed By: #### C DP, BMPX #### [address] [address] [employer]: Michael Chen MD Sodium [Moles/Vol] 136 mmol/L Normal 136-145 [facility] Comment on above: Performed By: #### C DP, BMPX #### [address] [address] [employer]: Michael Chen MD Urea nitrogen [Mass/Vol] 51 mg/dL High 8-23 [facility] Comment on above: Performed By: #### C DP, BMPX #### [address] [address] [employer]: Michael Chen MD CBC with Diffon 01-24-2024 Abs. Basophil 0.03 k/uL Normal 0.00-0.20 [facility] Comment on above: Performed By: #### C DP, BMPX #### [facility] [address] [place] [address] [employer]: Michael Chen MD Abs.Imm.Granulocyte 0.11 k/uL Normal 0.00-0.30 [facility] Comment on above: Performed By: #### C DP, BMPX #### [facility] [address] [place] [phone] [employer]: Michael Chen MD Abs.Neutrophil (Seg) 3.73 k/uL Normal 1.50-8.10 [facility] Comment on above: Performed By: #### C DP, BMPX #### [address] [address] [employer]: Michael Chen MD Basophils/100 WBC (Bld) 1 % Normal 0-2 [facility] Comment on above: Performed By: #### C DP, BMPX #### [address] [address] [employer]: Michael Chen MD Eosinophils (Bld) [#/Vol] 0.24 10*3/uL Normal 0.00-0.44 [facility] Comment on above: Performed By: #### C DP, BMPX #### [address] [address] [employer]: Michael Chen MD Eosinophils/100 WBC (Bld) 4 % Normal 1-4 [facility] Comment on above: Performed By: #### C DP, BMPX #### [address] [address] [employer]: Michael Chen MD Erythrocyte distribution width (RBC) [Ratio] 13.8 % Normal 11.8-14.4 [facility] Comment on above: Performed By: #### C DP, BMPX #### [address] [address] [employer]: Michael Chen MD Hematocrit (Bld) [Volume fraction] 29.4 % Low 36.3-47.1 [facility] Comment on above: Performed By: #### C DP, BMPX #### [address] [address] [employer]: Michael Chen MD Hemoglobin (Bld) [Mass/Vol] 9.2 g/dL Low 11.9-15.1 [facility] Comment on above: Performed By: #### C DP, BMPX #### [address] [address] [employer]: Michael Chen MD Immature granulocytes/100 WBC (Bld) 2 % High 0 [facility] Comment on above: Performed By: #### C DP, BMPX #### [address] [address] [employer]: Michael Chen MD Lymphocytes (Bld) [#/Vol] 1.63 10*3/uL Normal 1.10-3.70 [facility] Comment on above: Performed By: #### C DP, BMPX #### [address] [address] [employer]: Michael Chen MD Lymphocytes/100 WBC (Bld) 25 % Normal 24-43 [facility] Comment on above: Performed By: #### C DP, BMPX #### [address] [address] [employer]: Michael Chen MD MCH (RBC) [Entitic mass] 30.8 pg Normal 25.2-33.5 [facility] Comment on above: Performed By: #### C DP, BMPX #### [address] [address] [employer]: Michael Chen MD MCHC (RBC) [Mass/Vol] 31.3 g/dL Normal 28.4-34.8 [facility] Comment on above: Performed By: #### C DP, BMPX #### [address] [address] [employer]: Michael Chen MD MCV (RBC) [Entitic vol] 98.3 fL Normal 82.6-102.9 [facility] Comment on above: Performed By: #### C DP, BMPX #### [address] [address] [employer]: Michael Chen MD Monocytes (Bld) [#/Vol] 0.74 10*3/uL Normal 0.10-1.20 [facility] Comment on above: Performed By: #### C DP, BMPX #### [address] [address] [employer]: Michael Chen MD Monocytes/100 WBC (Bld) 11 % Normal 3-12 [facility] Comment on above: Performed By: #### C DP, BMPX #### [address] [address] [employer]: Michael Chen MD Neutrophil (Seg) 57 % Normal 36-65 [facility] Comment on above: Performed By: #### C DP, BMPX #### [address] [address] [employer]: Michael Chen MD NRBC Automated 0.0 per 100 WBC Normal 0.0 [facility] Comment on above: Performed By: #### C DP, BMPX #### [address] [address] [employer]: Michael Chen MD Platelet mean volume (Bld) [Entitic vol] 9.9 fL Normal 8.1-13.5 [facility] Comment on above: Performed By: #### C DP, BMPX #### [address] [address] [employer]: Michael Chen MD Platelets (Bld) [#/Vol] 234 10*3/uL Normal 138-453 [facility] Comment on above: Performed By: #### C DP, BMPX #### [address] [id number] [employer]: Michael Chen MD RBC (Bld) [#/Vol] 2.99 10*6/uL Low 3.95-5.11 [facility] Comment on above: Performed By: #### C DP, BMPX #### [address] [address] [employer]: Michael Chen MD WBC (Bld) [#/Vol] 6.5 10*3/uL Normal 3.5-11.3 [facility] Comment on above: Performed By: #### C DP, BMPX #### [place] [address] [employer]: Michael Chen MD REINALDO Screen w/reflexon 2023 REINALDO Screen Negative Normal NEG [facility] Comment on above: Performed By: #### C MPX, CDP #### [place] [address] [employer]: Michael Chen MD Anti-dsDNA <0.5 Normal <10.0 [facility] Comment on above: Result Comment: Reference Range: <10.0 Negative 10.0-15.0 Equivocal >15.0 Positive Performed By: #### C MPX, CDP #### [place] [address] [employer]: Michael Chen MD [place] Screen 0.1 U/mL Normal <0.7 [facility] Comment on above: Result Comment: Reference Range: <0.7 Negative 0.7-1.0 Equivocal >1.0 Positive [place] Screen includes U1RNP,RNP70,Sm,Ro(SS-A),La(SS-B),CENP,Scl-70,Elli-1 Performed By: #### C MPX, CDP #### [place] [address] [employer]: Michael Chen MD REINALDO Screen Negative Normal NEG [facility] Comment on above: Performed By: #### C MPX, CDP #### [facility] [address] [place] [phone] [employer]: Michael Chen MD Anti-dsDNA 0.7 IU/mL Normal <10.0 [facility] Comment on above: Result Comment: Reference Range: <10.0 Negative 10.0-15.0 Equivocal >15.0 Positive Performed By: #### C MPX, CDP #### [address] [id number] [employer]: Michael Chen MD [place] Screen 0.2 U/mL Normal <0.7 [facility] Comment on above: Result Comment: Reference Range: <0.7 Negative 0.7-1.0 Equivocal >1.0 Positive [place] Screen includes U1RNP,RNP70,Sm,Ro(SS-A),La(SS-B),CENP,Scl-70,Elli-1 Performed By: #### C MPX, CDP #### [place] [address] [employer]: Michael Chen MD Anti CCPon 3 Anti CCP 0.6 U/mL Normal 0.0-7.0 [facility] Comment on above: Result Comment: Reference Range: <7.0 Negative 7.0-10.0 Equivocal >10.0 Positive Performed By: #### C MPX, CDP #### [facility] [address] [place] [address] [employer]: Michael Chen MD Basic Metab w/rfx MGon 01-22 Anion gap [Moles/Vol] 8 mmol/L Low 9-[address] [facility] Comment on above: Performed By: #### B MPX, CDP #### [place] [id number] [employer]: Michael Chen MD Calcium [Mass/Vol] 8.2 mg/dL Low 8.6-10.4 [facility] Comment on above: Performed By: #### B MPX, CDP #### [address] [address] [employer]: Michael Chen MD Chloride [Moles/Vol] 106 mmol/L Normal 98-107 [facility] Comment on above: Performed By: #### B MPX, CDP #### [facility] [address] [place] [phone] [employer]: Michael Chen MD CO2 [Moles/Vol] 21 mmol/L Normal 20-31 [facility] Comment on above: Performed By: #### B MPX, CDP #### [address] [address] [employer]: Michael Chen MD Creatinine [Mass/Vol] 1.7 mg/dL High 0.50-0.90 [facility] Comment on above: Performed By: #### B MPX, CDP #### [address] [address] [employer]: Michael Chen MD GFR/1.73 sq M.predicted among non-blacks MDRD (S/P/Bld) [Vol rate/Area] 33 mL/min/{1.73_m2} Low >60 [facility] Comment on above: Result Comment: These [...] affects renal tubular secretion. Performed By: #### B MPX, CDP #### [address] [address] [employer]: Michael Chen MD Glucose [Mass/Vol] 88 mg/dL Normal 74-99 [facility] Comment on above: Performed By: #### B MPX, CDP #### [address] [address] [employer]: Michael Chen MD Potassium [Moles/Vol] 4.8 mmol/L Normal 3.7-5.3 [facility] Comment on above: Performed By: #### B MPX, CDP #### [facility] [address] [place] [phone] [employer]: Michael Chen MD Sodium [Moles/Vol] 135 mmol/L Low 136-145 [facility] Comment on above: Performed By: #### B MPX, CDP #### [address] [address] [employer]: Michael Chen MD Urea nitrogen [Mass/Vol] 56 mg/dL High 8-23 [facility] Comment on above: Performed By: #### B MPX, CDP #### [place] [address] [employer]: Michael Chen MD CBC with Diffon 01-23-2024 Abs. Basophil <0.03 Normal 0.00-0.20 [facility] Comment on above: Performed By: #### C DP BMPX #### [facility] [address] [place] [address] [employer]: Michael Chen MD Abs.Imm.Granulocyte 0.03 k/uL Normal 0.00-0.30 [facility] Comment on above: Performed By: #### C OBIE BMPX #### [address] [address] [employer]: Michael Chen MD Abs.Neutrophil (Seg) 5.50 k/uL Normal 1.50-8.10 [facility] Comment on above: Performed By: #### C DP, BMPX #### [address] [address] [employer]: Michael Chen MD Basophils/100 WBC (Bld) 0 % Normal 0-2 [facility] Comment on above: Performed By: #### C DP, BMPX #### [address] [address] [employer]: Michael Chen MD Eosinophils (Bld) [#/Vol] 0.15 10*3/uL Normal 0.00-0.44 [facility] Comment on above: Performed By: #### C DP, BMPX #### [facility] [address] [place] [id number] [employer]: Michael Chen MD Eosinophils/100 WBC (Bld) 2 % Normal 1-4 [facility] Comment on above: Performed By: #### C DP, BMPX #### [facility] [address] [place] [id number] [employer]: Michael Chen MD Erythrocyte distribution width (RBC) [Ratio] 13.7 % Normal 11.8-14.4 [facility] Comment on above: Performed By: #### C DP, BMPX #### [facility] [address] [place] [address] [employer]: Michael Chen MD Hematocrit (Bld) [Volume fraction] 28.9 % Low 36.3-47.1 [facility] Comment on above: Performed By: #### C DP, BMPX #### [facility] [address] [place] [address] [employer]: Michael Chen MD Hemoglobin (Bld) [Mass/Vol] 8.6 g/dL Low 11.9-15.1 [facility] Comment on above: Performed By: #### C DP, BMPX #### [address] [address] [employer]: Michael Chen MD Immature granulocytes/100 WBC (Bld) 0 % Normal 0 [facility] Comment on above: Performed By: #### C DP, BMPX #### [address] [address] [employer]: Michael Chen MD Lymphocytes (Bld) [#/Vol] 1.07 10*3/uL Low 1.10-3.70 [facility] Comment on above: Performed By: #### C DP, BMPX #### [address] [address] [employer]: Michael Chen MD Lymphocytes/100 WBC (Bld) 14 % Low 24-43 [facility] Comment on above: Performed By: #### C DP, BMPX #### [address] [address] [employer]: Michael Chen MD MCH (RBC) [Entitic mass] 30.2 pg Normal 25.2-33.5 [facility] Comment on above: Performed By: #### C DP, BMPX #### [address] [address] [employer]: Michael Chen MD MCHC (RBC) [Mass/Vol] 29.8 g/dL Normal 28.4-34.8 [facility] Comment on above: Performed By: #### C DP, BMPX #### [address] [address] [employer]: Michael Chen MD MCV (RBC) [Entitic vol] 101.4 fL Normal 82.6-102.9 [facility] Comment on above: Performed By: #### C DP, BMPX #### [address] [address] [employer]: Michael Chen MD Monocytes (Bld) [#/Vol] 0.72 10*3/uL Normal 0.10-1.20 [facility] Comment on above: Performed By: #### C DP, BMPX #### [address] [address] [employer]: Michael Chen MD Monocytes/100 WBC (Bld) 10 % Normal 3-12 [facility] Comment on above: Performed By: #### C DP, BMPX #### [address] [address] [employer]: Michael Chen MD Neutrophil (Seg) 74 % High 36-65 [facility] Comment on above: Performed By: #### C DP, BMPX #### [address] [address] [employer]: Michael Chen MD NRBC Automated 0.0 per 100 WBC Normal 0.0 [facility] Comment on above: Performed By: #### C DP, BMPX #### [address] [address] [employer]: Michael Chen MD Platelet mean volume (Bld) [Entitic vol] 9.9 fL Normal 8.1-13.5 [facility] Comment on above: Performed By: #### C DP, BMPX #### [address] [address] [employer]: Michael Chen MD Platelets (Bld) [#/Vol] 292 10*3/uL Normal 138-453 [facility] Comment on above: Performed By: #### C DP, BMPX #### [address] [address] [employer]: Michael Chen MD RBC (Bld) [#/Vol] 2.85 10*6/uL Low 3.95-5.11 [facility] Comment on above: Performed By: #### C DP, BMPX #### [address] [address] [employer]: Michael Chen MD WBC (Bld) [#/Vol] 7.5 10*3/uL Normal 3.5-11.3 [facility] Comment on above: Performed By: #### C DP, BMPX #### [address] [address] [employer]: Michael Chen MD APTTon 01-22-2024 aPTT Coag (d) [Time] 29.1 s Normal 23.0-36.5 [facility] Comment on above: Result Comment: IV Heparin Therapy Range: 66.0-92.0 sec Performed By: #### C MPX, CDP #### [address] [address] [employer]: Michael Chen MD Basic Metab w/rfx MGon 01-21 Anion gap [Moles/Vol] 10 mmol/L Normal 9-16 [facility] Comment on above: Performed By: #### C MPX, CDP #### [address] [address] [employer]: Michael Chen MD Calcium [Mass/Vol] 8.3 mg/dL Low 8.6-10.4 [facility] Comment on above: Performed By: #### C MPX, CDP #### [address] [address] [employer]: Michael Chen MD Chloride [Moles/Vol] 107 mmol/L Normal 98-107 [facility] Comment on above: Performed By: #### C MPX, CDP #### [address] [address] [employer]: Michael Chen MD CO2 [Moles/Vol] 21 mmol/L Normal 20-31 [facility] Comment on above: Performed By: #### C MPX, CDP #### [address] [address] [employer]: Michael Chen MD Creatinine [Mass/Vol] 1.8 mg/dL High 0.50-0.90 [facility] Comment on above: Performed By: #### C MPX, CDP #### [address] [address] [employer]: Michael Chen MD GFR/1.73 sq M.predicted among non-blacks MDRD (S/P/Bld) [Vol rate/Area] 32 mL/min/{1.73_m2} Low >60 [facility] Comment on above: Result Comment: These [...] renal tubular secretion. Performed By: #### C MPX, CDP #### [address] [address] [employer]: Michael Chen MD Glucose [Mass/Vol] 86 mg/dL Normal 74-99 [facility] Comment on above: Performed By: #### C MPX, CDP #### [facility] [address] [place] [address] [employer]: Michael Chen MD Potassium [Moles/Vol] 4.1 mmol/L Normal 3.7-5.3 [facility] Comment on above: Performed By: #### C MPX, CDP #### [address] [address] [employer]: Michael Chen MD Sodium [Moles/Vol] 138 mmol/L Normal 136-145 [facility] Comment on above: Performed By: #### C MPX, CDP #### [address] [address] [employer]: Michael Chen MD Urea nitrogen [Mass/Vol] 66 mg/dL High 8-23 [facility] Comment on above: Performed By: #### C MPX, CDP #### [address] [address] [employer]: Michael Chen MD C-Reactive Proteinon 024 CRP [Mass/Vol] 31.7 mg/L High 0.0-5.0 [facility] Comment on above: Performed By: #### C MPX, CDP #### [address] [address] [employer]: Michael Chen MD C3on 01-22-2024 C3 111 mg/dL Normal 90-180 [facility] Comment on above: Performed By: #### C MPX, CDP #### [address] [address] [employer]: Michael Chen MD C4on 01-22-2024 C4 21 mg/dL Normal 10-40 [facility] Comment on above: Performed By: #### C MPX, CDP #### [address] [address] [employer]: Michael Chen MD CBC with Diffon 01-22-2024 Abs. Basophil 0.00 k/uL Normal 0.00-0.20 [facility] Comment on above: Performed By: #### C DP, BMPX #### [address] [address] [employer]: Michael Chen MD Abs.Imm.Granulocyte 0.00 k/uL Normal 0.00-0.30 [facility] Comment on above: Performed By: #### C DP, BMPX #### [place] [address] [employer]: Mihcael Chen MD Abs.Neutrophil (Seg) 6.12 k/uL Normal 1.50-8.10 [facility] Comment on above: Performed By: #### C DP, BMPX #### [place] [address] [employer]: Michael Chen MD Basophils/100 WBC (Bld) 0 % Normal 0-2 [facility] Comment on above: Performed By: #### C DP, BMPX #### [place] [address] [employer]: Michael Chen MD Eosinophils (Bld) [#/Vol] 0.07 10*3/uL Normal 0.00-0.44 [facility] Comment on above: Performed By: #### C DP, BMPX #### [place] [address] [employer]: Michael Chen MD Eosinophils/100 WBC (Bld) 1 % Normal 1-4 [facility] Comment on above: Performed By: #### C DP, BMPX #### [place] [address] [employer]: Michael Chen MD Immature granulocytes/100 WBC (Bld) 0 % Normal 0 [facility] Comment on above: Performed By: #### C DP, BMPX #### [place] [address] [employer]: Michael Chen MD Lymphocytes (Bld) [#/Vol] 0.58 10*3/uL Low 1.10-3.70 [facility] Comment on above: Performed By: #### C DP, BMPX #### [address] [address] [employer]: Michael Chen MD Lymphocytes/100 WBC (Bld) 8 % Low 24-43 [facility] Comment on above: Performed By: #### C DP, BMPX #### [address] [address] [employer]: Michael Chen MD Monocytes (Bld) [#/Vol] 0.43 10*3/uL Normal 0.10-1.20 [facility] Comment on above: Performed By: #### C DP, BMPX #### [address] [address] [employer]: Michael Chen MD Monocytes/100 WBC (Bld) 6 % Normal 3-12 [facility] Comment on above: Performed By: #### C DP, BMPX #### [address] [address] [employer]: Michael Chen MD Morphology Pedro (Bld) [Interp] Normal Normal [facility] Comment on above: Performed By: #### C DP, BMPX #### [address] [address] [employer]: Michael Chen MD Neutrophil (Seg) 85 % High 36-65 [facility] Comment on above: Performed By: #### C DP, BMPX #### [address] [address] [employer]: Michael Chen MD Erythrocyte distribution width (RBC) [Ratio] 13.6 % Normal 11.8-14.4 [facility] Comment on above: Performed By: #### C DP, BMPX #### [address] [address] [employer]: Michael Chen MD Hematocrit (Bld) [Volume fraction] 30.3 % Low 36.3-47.1 [facility] Comment on above: Performed By: #### C DP, BMPX #### [place] [address] [employer]: Michael Chen MD Hemoglobin (Bld) [Mass/Vol] 9.3 g/dL Low 11.9-15.1 [facility] Comment on above: Performed By: #### C DP, BMPX #### [place] [address] [employer]: Michael Chen MD MCH (RBC) [Entitic mass] 30.8 pg Normal 25.2-33.5 [facility] Comment on above: Performed By: #### C DP, BMPX #### [place] [address] [employer]: Michael Chen MD MCHC (RBC) [Mass/Vol] 30.7 g/dL Normal 28.4-34.8 [facility] Comment on above: Performed By: #### C DP, BMPX #### [place] [address] [employer]: Michael Chen MD MCV (RBC) [Entitic vol] 100.3 fL Normal 82.6-102.9 [facility] Comment on above: Performed By: #### C DP, BMPX #### [place] [address] [employer]: Michael Chen MD NRBC Automated 0.0 per 100 WBC Normal 0.0 [facility] Comment on above: Performed By: #### C DP, BMPX #### [address] [id number] [employer]: Michael Chen MD Platelet mean volume (Bld) [Entitic vol] 9.6 fL Normal 8.1-13.5 [facility] Comment on above: Performed By: #### C DP, BMPX #### [facility] [place] [address] [employer]: Michael Chen MD Platelets (Bld) [#/Vol] 329 10*3/uL Normal 138-453 [facility] Comment on above: Performed By: #### C DP, BMPX #### [facility] [place] [address] [employer]: Michael Chen MD RBC (Bld) [#/Vol] 3.02 10*6/uL Low 3.95-5.11 [facility] Comment on above: Performed By: #### C DP, BMPX #### [address] [address] [employer]: Michael Chen MD WBC (Bld) [#/Vol] 7.2 10*3/uL Normal 3.5-11.3 [facility] Comment on above: Performed By: #### C DP, BMPX #### [address] [address] [employer]: Michael Chen MD CT CERVICAL SPINE WO CONTRAS Ton 01-22-2024 CT CERVICAL SPINE WO CONTRAST EXAMINATION: CT OF THE CERVICAL SPINE WITHOUT CONTRAST 01/22/2024 3:07 am TECHNIQUE: CT of the cervical spine was performed without the administration of intravenous contrast. Multiplanar reformatted images are provided for review. Automated exposure control, iterative reconstruction, and/or weight based adjustment of the mA/kV was utilized to reduce the radiation dose to as low as reasonably achievable. COMPARISON: Cervical spine plain film series dated 09/30/2023. HISTORY: ORDERING SYSTEM PROVIDED HISTORY: trauma TECHNOLOGIST PROVIDED HISTORY: trauma FINDINGS: BONES/ALIGNMENT: The chronic mildly posteriorly displaced type 2 dens fracture is again noted. There is mild cranial settling with the tip of the clivus nearly contacting the tip of the dens. The anterior arch of C1 is well below the tip of the dens. There is approximately 1 cm leftward lateral subluxation of C2 relative to C1. This is new compared to the 09/30/2023 plain film series. The patient's head and C1 are mildly rotated to the right. No rotatory subluxation. Likely acute nondisplaced fractures of the C1 posterior arch are noted immediately posterior to lateral masses. Alignment and vertebral body heights otherwise are normal as is bone density. DEGENERATIVE CHANGES: No significant degenerative changes. SOFT TISSUES: There is no prevertebral soft tissue swelling. IMPRESSION: 1. Chronic mildly posteriorly displaced type 2 dens fracture with mild cranial settling. 2. There is approximately 1 cm leftward lateral subluxation of C2 relative to C1. This is new compared to the 09/30/2023 plain film series. 3. Likely acute nondisplaced fractures of the C1 posterior arch immediately posterior to the lateral masses. Critical results were called by Dr. Anuj Paniagua to Dr. Loya on 01/22/2024 at 04:34. Interpreted by: Anuj Paniagua MD Signed by: Anuj Paniagua MD 01/22/24 Final result Normal [facility] CT CHEST ABDOMEN PELVIS W CO NTRASTon 01-22-2024 CT CHEST ABDOMEN PELVIS W CONTRAST EXAMINATION: CT OF THE CHEST, ABDOMEN, AND PELVIS WITH CONTRAST 01/22/2024 3:15 am TECHNIQUE: CT of the chest, abdomen and pelvis was performed with the administration of intravenous contrast. Multiplanar reformatted images are provided for review. Automated exposure control, iterative reconstruction, and/or weight based adjustment of the mA/kV was utilized to reduce the radiation dose to as low as reasonably achievable. COMPARISON: None HISTORY: ORDERING SYSTEM PROVIDED HISTORY: trauma TECHNOLOGIST PROVIDED HISTORY: trauma FINDINGS: Chest: Mediastinum: No evidence of mediastinal, hilar or axillary lymphadenopathy. Aorta is normal in caliber without acute abnormality. The central airways are clear. Lungs/pleura: There is mild patchy bi basilar atelectasis versus developing infiltrate. The former is favored. No pneumothorax or pleural effusion. Soft Tissues/Bones: No acute bone or soft tissue abnormality evident. Bilateral old healed rib fractures are noted. Abdomen/Pelvis: Organs: The liver is unremarkable. Status post cholecystectomy. There is prominent common bile duct attributed to reservoir effect. The pancreas, spleen, adrenal glands, kidneys and ureters are unremarkable. 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 The duodenal sweep is unremarkable. There is no evidence of bowel obstruction. No evidence of abnormal bowel wall thickening or distension. No evidence of appendicitis but the appendix is not seen. There is moderate constipation. Pelvis: The bladder is markedly distended. Status post hysterectomy. Peritoneum/Retroperitoneu m: No evidence of ascites or free air. No evidence of lymphadenopathy. Aorta is normal in caliber. Bones/Soft Tissues: No acute bone abnormality. There is prominent edema of the subcutaneous fatty tissues laterally on both the left and right through the abdomen and pelvis. IMPRESSION: 1. No acute intrathoracic, intra-abdominal or intrapelvic abnormality. 2. Mild patchy bi basilar atelectasis versus developing infiltrate. The former is favored. 3. Status post cholecystectomy, sleeve gastrectomy with Vikki-en-Y bypass, and hysterectomy. 4. Moderate constipation. 5. Markedly distended bladder raising concern for bladder outlet obstruction. 6. Prominent edema of the subcutaneous fatty tissues laterally on both the left and right through the abdomen and pelvis. Interpreted by: Anuj Paniagua MD Signed by: Anuj Paniagua MD 01/22/24 Final result Normal [facility] CT HEAD WO CONTRASTon 2023 CT HEAD WO CONTRAST EXAMINATION: CT OF THE HEAD WITHOUT CONTRAST; CTA OF THE HEAD AND NECK WITH CONTRAST 01/22/2024 3:07 am: TECHNIQUE: CT of the head was performed without the administration of intravenous contrast. Automated exposure control, iterative reconstruction, and/or weight based adjustment of the mA/kV was utilized to reduce the radiation dose to as low as reasonably achievable.; CTA of the head and neck was performed with the administration of intravenous contrast. Multiplanar reformatted images are provided for review. MIP images are provided for review. Stenosis of the internal carotid arteries measured using NASCET criteria. Automated exposure control, iterative reconstruction, and/or weight based adjustment of the mA/kV was utilized to reduce the radiation dose to as low as reasonably achievable. Noncontrast CT of the head with reconstructed 2-D images are also provided for review. COMPARISON: None. HISTORY: ORDERING SYSTEM PROVIDED HISTORY: trauma TECHNOLOGIST PROVIDED HISTORY: trauma; ORDERING SYSTEM PROVIDED HISTORY: cervical fractures TECHNOLOGIST PROVIDED HISTORY: cervical fractures Decision Support Exception - unselect if not a suspected or confirmed emergency medical condition->Emergency Medical Condition (MA) FINDINGS: CT HEAD: BRAIN/VENTRICLES: No acute intracranial hemorrhage or extraaxial fluid collection. Li-white differentiation is maintained. No evidence of mass, mass effect or midline shift. No evidence of hydrocephalus. Mild diffuse cerebral atrophy and chronic white matter ischemic change. ORBITS: The visualized portion of the orbits demonstrate no acute abnormality. SINUSES: The visualized paranasal sinuses and mastoid air cells demonstrate no acute abnormality. SOFT TISSUES/SKULL: No acute abnormality of the visualized skull or soft tissues. CTA NECK: AORTIC ARCH/ARCH VESSELS: No dissection or arterial injury. No significant stenosis of the brachiocephalic or subclavian arteries. CAROTID ARTERIES: No dissection, arterial injury, or hemodynamically significant stenosis by NASCET criteria. VERTEBRAL ARTERIES: There is dissection of the distal left V2 segment related to the C1 and C2 fractures with associated subluxation. Dissection begins at the inferior C2 level and continues to the proximal V3 segment. There is normal opacification following termination of the dissection. Otherwise, no dissection, arterial injury, or significant stenosis. SOFT TISSUES: The lung apices are clear. No cervical or superior mediastinal lymphadenopathy. The larynx and pharynx are unremarkable. No acute abnormality of the salivary and thyroid glands. BONES: Please refer to the report for the dedicated cervical spine CT for details of the above-mentioned C1 and C2 fracture subluxation. CTA HEAD: ANTERIOR CIRCULATION: No significant stenosis of the intracranial internal carotid, anterior cerebral, or middle cerebral arteries. No aneurysm. POSTERIOR CIRCULATION: No significant stenosis of the vertebral, basilar, or posterior cerebral arteries. No aneurysm. OTHER: No dural venous sinus thrombosis on this non-dedicated study. IMPRESSION: 1. No acute intracranial abnormality. 2. Dissection of the distal left V2 segment related to the C1 and C2 fractures with associated subluxation. Dissection begins at the inferior C2 level and continues to the proximal V3 segment. There is normal opacification following termination of the dissection. 3. Otherwise, no dissection, arterial injury, or significant stenosis of the major arterial vessels of the head and neck. Critical results were called by Dr. Anuj Paniagua to Dr. Loya on 01/22/2024 at 04:34. Interpreted by: Anuj Paniagua MD Signed by: Anuj Paniagua MD 01/22/24 Final result Normal [facility] CT LUMBAR SPINE BONY RECONST RUCTIONon 01-22-2024 CT LUMBAR SPINE BONY RECONSTRUCTION EXAMINATION: CT OF THE LUMBAR SPINE WITHOUT CONTRAST; CT OF THE THORACIC SPINE WITHOUT CONTRAST 01/22/2024 TECHNIQUE: CT of the lumbar spine was performed without the administration of intravenous contrast. Multiplanar reformatted images are provided for review. Adjustment of mA and/or kV according to patient size was utilized. Automated exposure control, iterative reconstruction, and/or weight based adjustment of the mA/kV was utilized to reduce the radiation dose to as low as reasonably achievable.; CT of the thoracic spine was performed without the administration of intravenous contrast. Multiplanar reformatted images are provided for review. Automated exposure control, iterative reconstruction, and/or weight based adjustment of the mA/kV was utilized to reduce the radiation dose to as low as reasonably achievable. COMPARISON: None. HISTORY: ORDERING SYSTEM PROVIDED HISTORY: trauma TECHNOLOGIST PROVIDED HISTORY: trauma FINDINGS: BONES/ALIGNMENT: There is no acute fracture or traumatic malalignment. There is mild right convex thoracic scoliosis. Thoracolumbar alignment otherwise is normal as are vertebral body heights. The patient is status post posterior instrumented fusion from L2 through L4. Intradiscal plug is present at L3-4. There has been posterior decompression from L2-3 through L3-4. There is significant sacralization of the L5 segment. DEGENERATIVE CHANGES: No significant degenerative changes of the thoracic or lumbar spine. SOFT TISSUES: No paraspinal mass is seen. IMPRESSION: 1. No acute thoracic or lumbar spine abnormality. 2. Status post posterior instrumented fusion from L2 through L4 with posterior decompression from L2-3 through L3-4. 3. Mild right convex thoracic scoliosis. Interpreted by: Anuj Paniagua MD Signed by: Anuj Paniagua MD 01/22/24 Final result Normal [facility] CT THORACIC SPINE BONY RECON STRUCTIONon 01-22-2024 CT THORACIC SPINE BONY RECONSTRUCTION EXAMINATION: CT OF THE LUMBAR SPINE WITHOUT CONTRAST; CT OF THE THORACIC SPINE WITHOUT CONTRAST 01/22/2024 TECHNIQUE: CT of the lumbar spine was performed without the administration of intravenous contrast. Multiplanar reformatted images are provided for review. Adjustment of mA and/or kV according to patient size was utilized. Automated exposure control, iterative reconstruction, and/or weight based adjustment of the mA/kV was utilized to reduce the radiation dose to as low as reasonably achievable.; CT of the thoracic spine was performed without the administration of intravenous contrast. Multiplanar reformatted images are provided for review. Automated exposure control, iterative reconstruction, and/or weight based adjustment of the mA/kV was utilized to reduce the radiation dose to as low as reasonably achievable. COMPARISON: None. HISTORY: ORDERING SYSTEM PROVIDED HISTORY: trauma TECHNOLOGIST PROVIDED HISTORY: trauma FINDINGS: BONES/ALIGNMENT: There is no acute fracture or traumatic malalignment. There is mild right convex thoracic scoliosis. Thoracolumbar alignment otherwise is normal as are vertebral body heights. The patient is status post posterior instrumented fusion from L2 through L4. Intradiscal plug is present at L3-4. There has been posterior decompression from L2-3 through L3-4. There is significant sacralization of the L5 segment. DEGENERATIVE CHANGES: No significant degenerative changes of the thoracic or lumbar spine. SOFT TISSUES: No paraspinal mass is seen. IMPRESSION: 1. No acute thoracic or lumbar spine abnormality. 2. Status post posterior instrumented fusion from L2 through L4 with posterior decompression from L2-3 through L3-4. 3. Mild right convex thoracic scoliosis. Interpreted by: Anuj Paniagua MD Signed by: Anuj Paniagua MD 01/22/24 Final result Normal [facility] CTA HEAD NECK W CONTRASTon 0 01-22-2024 CTA HEAD NECK W CONTRAST EXAMINATION: CT OF THE HEAD WITHOUT CONTRAST; CTA OF THE HEAD AND NECK WITH CONTRAST 01/22/2024 3:07 am: TECHNIQUE: CT of the head was performed without the administration of intravenous contrast. Automated exposure control, iterative reconstruction, and/or weight based adjustment of the mA/kV was utilized to reduce the radiation dose to as low as reasonably achievable.; CTA of the head and neck was performed with the administration of intravenous contrast. Multiplanar reformatted images are provided for review. MIP images are provided for review. Stenosis of the internal carotid arteries measured using NASCET criteria. Automated exposure control, iterative reconstruction, and/or weight based adjustment of the mA/kV was utilized to reduce the radiation dose to as low as reasonably achievable. Noncontrast CT of the head with reconstructed 2-D images are also provided for review. COMPARISON: None. HISTORY: ORDERING SYSTEM PROVIDED HISTORY: trauma TECHNOLOGIST PROVIDED HISTORY: trauma; ORDERING SYSTEM PROVIDED HISTORY: cervical fractures TECHNOLOGIST PROVIDED HISTORY: cervical fractures Decision Support Exception - unselect if not a suspected or confirmed emergency medical condition->Emergency Medical Condition (MA) FINDINGS: CT HEAD: BRAIN/VENTRICLES: No acute intracranial hemorrhage or extraaxial fluid collection. Li-white differentiation is maintained. No evidence of mass, mass effect or midline shift. No evidence of hydrocephalus. Mild diffuse cerebral atrophy and chronic white matter ischemic change. ORBITS: The visualized portion of the orbits demonstrate no acute abnormality. SINUSES: The visualized paranasal sinuses and mastoid air cells demonstrate no acute abnormality. SOFT TISSUES/SKULL: No acute abnormality of the visualized skull or soft tissues. CTA NECK: AORTIC ARCH/ARCH VESSELS: No dissection or arterial injury. No significant stenosis of the brachiocephalic or subclavian arteries. CAROTID ARTERIES: No dissection, arterial injury, or hemodynamically significant stenosis by NASCET criteria. VERTEBRAL ARTERIES: There is dissection of the distal left V2 segment related to the C1 and C2 fractures with associated subluxation. Dissection begins at the inferior C2 level and continues to the proximal V3 segment. There is normal opacification following termination of the dissection. Otherwise, no dissection, arterial injury, or significant stenosis. SOFT TISSUES: The lung apices are clear. No cervical or superior mediastinal lymphadenopathy. The larynx and pharynx are unremarkable. No acute abnormality of the salivary and thyroid glands. BONES: Please refer to the report for the dedicated cervical spine CT for details of the above-mentioned C1 and C2 fracture subluxation. CTA HEAD: ANTERIOR CIRCULATION: No significant stenosis of the intracranial internal carotid, anterior cerebral, or middle cerebral arteries. No aneurysm. POSTERIOR CIRCULATION: No significant stenosis of the vertebral, basilar, or posterior cerebral arteries. No aneurysm. OTHER: No dural venous sinus thrombosis on this non-dedicated study. IMPRESSION: 1. No acute intracranial abnormality. 2. Dissection of the distal left V2 segment related to the C1 and C2 fractures with associated subluxation. Dissection begins at the inferior C2 level and continues to the proximal V3 segment. There is normal opacification following termination of the dissection. 3. Otherwise, no dissection, arterial injury, or significant stenosis of the major arterial vessels of the head and neck. Critical results were called by Dr. Anuj Paniagua to Dr. Loya on 01/22/2024 at 04:34. Interpreted by: Anuj Paniagua MD Signed by: Anuj Paniagua MD 01/22/24 Final result Normal [facility] Creatine Kinaseon 01-22-2024 CK [Catalytic activity/Vol] 38 U/L Normal 26-192 [facility] Comment on above: Performed By: #### C MPTERESA Mora #### [facility] [address] [place] [address] [employer]: Michael Chen MD MRI BRAIN WO CONTRASTon 12-25 MRI BRAIN WO CONTRAST EXAMINATION: MRI OF THE BRAIN WITHOUT CONTRAST 01/22/2024 2:50 pm TECHNIQUE: Multiplanar multisequence MRI of the brain was performed without the administration of intravenous contrast. COMPARISON: None. HISTORY: ORDERING SYSTEM PROVIDED HISTORY: eval for stroke, L V2 dissection TECHNOLOGIST PROVIDED HISTORY: eval for stroke, L V2 dissection What is the sedation requirement?->None Reason for Exam: eval for stroke, L V2 dissection Initial evaluation. FINDINGS: INTRACRANIAL STRUCTURES/VENTRICLES: There is no acute infarct. No mass effect or midline shift. No evidence of an acute intracranial hemorrhage. Areas of T2 FLAIR hyperintensity are seen in the periventricular and subcortical white matter, which are nonspecific, but may represent chronic microvascular ischemic change. There is minimal global parenchymal volume loss. Otherwise, the ventricles and sulci are normal in size and configuration. The sellar/suprasellar regions appear unremarkable. There is suggestion of at least partial loss of the normal signal void within the left vertebral artery. ORBITS: The visualized portion of the orbits demonstrate no acute abnormality. SINUSES: The visualized paranasal sinuses and mastoid air cells demonstrate no acute abnormality. BONES/SOFT TISSUES: The bone marrow signal intensity appears normal. The soft tissues demonstrate no acute abnormality. IMPRESSION: 1. Suggestion of at least partial loss of the normal signal void within the left vertebral artery, which can be seen with slow flow/occlusion. This is of uncertain chronicity. 2. Otherwise, no acute intracranial abnormality. No acute infarct. 3. Minimal global parenchymal volume loss with mild chronic microvascular ischemic changes. Interpreted by: Shabbir Martin MD Signed by: Shabbir Martin MD 01/22/24 Final result Normal [facility] MRI CERVICAL SPINE WO CONTRA STon 01-22-2024 MRI CERVICAL SPINE WO CONTRAST EXAMINATION: MRI OF THE CERVICAL SPINE WITHOUT CONTRAST 01/22/2024 8:25 am TECHNIQUE: Multiplanar multisequence MRI of the cervical spine was performed without the administration of intravenous contrast. COMPARISON: CT scan January 22, 2024. HISTORY: ORDERING SYSTEM PROVIDED HISTORY: evaluation Odontoid fracture, C1 fx TECHNOLOGIST PROVIDED HISTORY: evaluation Odontoid fracture, C1 fx What is the sedation requirement?->None Reason for Exam: evaluation Odontoid fracture, C1 fx FINDINGS: BONES/ALIGNMENT: There is normal alignment of the spine. The vertebral body heights are maintained. The bone marrow signal appears unremarkable. Stable appearance of a chronic type 2 fracture of the odontoid process, with minimal posterior and leftward deviation of the superior fracture fragment. There is slight cranial settling of the fracture fragment without significant mass effect on the maria t or cervicomedullary junction. The posterior longitudinal ligament, apical ligament, and cruciform ligaments are intact. Reactive marrow edema changes are seen at the free margins of the odontoid fracture. The previously noted C1 fracture is not well visualized due to limitations in imaging modality. However no marrow edema is noted. SPINAL CORD: No abnormal cord signal is seen. SOFT TISSUES: No paraspinal mass identified. C2-C3: Asymmetrical narrowing of the left lateral recess is noted secondary to right lateral subluxation of C1 over C2. No foraminal narrowing is seen. C3-C4: There is no significant disc protrusion, spinal canal stenosis or neural foraminal narrowing. C4-C5: There is no significant disc protrusion, spinal canal stenosis or neural foraminal narrowing. C5-C6: There is trace amount of anterolisthesis of C5 on C6. There is thickening of ligamentum flavum. There is trace amount of canal stenosis. No significant foraminal narrowing is seen. C6-C7: There is no significant disc protrusion, spinal canal stenosis or neural foraminal narrowing. C7-T1: There is no significant disc protrusion, spinal canal stenosis or neural foraminal narrowing. 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 IMPRESSION: 1. Stable appearance of a type 2 fracture of the odontoid process, with slight posterior and leftward deviation of the superior fracture fragment. There is slight cranial settling of the fracture fragment without significant mass effect on the maria t or cervicomedullary junction. Ligaments of the atlantoaxial joint are intact. 2. The previously noted C1 fracture is not well visualized due to limitations in technique. 3. Asymmetrical narrowing of the left lateral recess at C2-C3 secondary to right lateral subluxation of C1 over C2. 4. Trace amount of canal stenosis at C5-C6. Interpreted by: Kirby Adames MD Signed by: Kirby Adames MD 01/22/24 Final result Normal [facility] PTon 01-22-2024 INR Coag (PPP) [Relative time] 1.1 {INR} Normal [facility] Comment on above: Result Comment: Therapeutic Range: Moderate Anticoagulant Intensity: INR = 2.0-3.0 High Anticoagulant Intensity: INR = 2.5-3.5 Performed By: #### C MPX, CDP #### [facility] [address] [place] [phone] [employer]: Michael Chen MD PT Coag (PPP) [Time] 14.2 s Normal 11.7-14.9 [facility] Comment on above: Performed By: #### C MPX, CDP #### [facility] [address] [place] [phone] [employer]: Michael Chen MD RA Screenon 01-22-2024 RA Screen <10 Normal 0-13 [facility] Comment on above: Performed By: #### C MPX, CDP #### [facility] [address] [place] [phone] [employer]: Michael Chen MD Sedimentation Rateon 024 Sedimentation Rate 11 mm/Hr Normal 0-30 [facility] Comment on above: Performed By: #### C MPX, CDP #### [facility] [address] [place] [phone] [employer]: Michael Chen MD Type + Screenon 01-22-2024 Type + Screen Sample Expiration 01/25/2024,2359 Arm Band Number [id number] ABO/Rh(D) A POSITIVE Antibody Screen NEGATIVE Normal [facility] Comment on above: Performed By: #### T YS #### [facility] [address] [place] [address] [employer]: Michael Chen MD Uric Acidon 01-22-2024 Urate [Mass/Vol] 9.6 mg/dL High 2.4-5.7 [facility] Comment on above: Performed By: #### C MPX, CDP #### [facility] [address] [place] [address] [employer]: Michael Chen MD Vitamin D 25 OHon 01-22-2024 Vitamin D 25 [place] 30.3 ng/mL Normal 30.0-100.0 [facility] Comment on above: Result Comment: Reference Range: Vitamin D status Range Deficiency <20 ng/mL Mild Deficiency 20-30 ng/mL Sufficiency 30-100 ng/mL Toxicity >100 ng/mL Performed By: #### C MPX, CDP #### [facility] [address] [place] [phone] [employer]: Michael Chen MD XR CHEST (SINGLE VIEW FRONTA L)on 01-22-2024 XR CHEST (SINGLE VIEW FRONTAL) EXAMINATION: ONE XRAY VIEW OF THE CHEST 01/22/2024 10:06 am COMPARISON: Chest radiograph 09/30/2023 HISTORY: ORDERING SYSTEM PROVIDED HISTORY: 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 Mediastinum: No mediastinal widening or shift or cardiomegaly. Lungs/pleura: Slightly decreased lung volumes. Minimal linear opacity over the left lung base compatible with scarring and/or subsegmental atelectasis. No consolidation, pneumothorax, or large pleural effusion. Bones: No acute findings. Old left rib fractures. Partially visualized lumbar spinal fusion hardware. Other: Evidence of remote laparotomy over the epigastric region. IMPRESSION: Minimal left basilar subsegmental atelectasis versus scarring. No acute radiographic findings of the chest. Interpreted by: Migel Price MD Signed by: Migel Price MD 01/22/24 Final result Normal [facility] Office Visiton 12-21-2023 Follow-up visit [id number] Loren Moser A 1960 F Date Provider Department Center 12/21/2023 BENJIE LERMA [facility] Family History Family history unknown: Yes Level of Service:81914 [place] OFFICE/OUTPATIENT ESTABLISHED MOD MDM 30 MIN Normal [facility] Orders Onlyon 12-21-2023 Orders Only [id number] Lroen Moser A 1960 F Date Provider Department Center 12/21/2023 MIKAYLA BURGER [facility] Family History Family history unknown: Yes Normal [facility] Basic Metab w/rfx MGon 09-30 Anion gap [Moles/Vol] 8 mmol/L Low 9-16 [facility] Comment on above: Performed By: #### B MPX, CDP #### [facility] [address] [place] [address] [employer]: Michael Chen MD Calcium [Mass/Vol] 8.1 mg/dL Low 8.6-10.4 [facility] Comment on above: Performed By: #### B MPX, CDP #### [facility] [address] [place] [address] [employer]: Michael Chen MD Chloride [Moles/Vol] 101 mmol/L Normal 98-107 [facility] Comment on above: Performed By: #### B MPX, CDP #### [facility] [address] [place] [address] [employer]: Michael Chen MD CO2 [Moles/Vol] 23 mmol/L Normal 20-31 [facility] Comment on above: Performed By: #### B MPX, CDP #### [facility] [address] [place] [phone] [employer]: Michael Chen MD Creatinine [Mass/Vol] 1.5 mg/dL High 0.50-0.90 [facility] Comment on above: Performed By: #### B MPX, CDP #### [facility] [address] [place] [phone] [employer]: Michael Chen MD GFR/1.73 sq M.predicted among non-blacks MDRD (S/P/Bld) [Vol rate/Area] 39 mL/min/{1.73_m2} Low >60 [facility] Comment on above: Result Comment: These [...] affects renal tubular secretion. Performed By: #### B MPX, CDP #### [address] [address] [employer]: Michael Chen MD Glucose [Mass/Vol] 100 mg/dL High 74-99 [facility] Comment on above: Performed By: #### B MPX, CDP #### [address] [address] [employer]: Michael Chen MD Potassium [Moles/Vol] 4.4 mmol/L Normal 3.7-5.3 [facility] Comment on above: Performed By: #### B MPX, CDP #### [facility] [address] [place] [phone] [employer]: Michael Chen MD Sodium [Moles/Vol] 132 mmol/L Low 136-145 [facility] Comment on above: Performed By: #### B MPX, CDP #### [facility] [address] [place] [phone] [employer]: Michael Chen MD Urea nitrogen [Mass/Vol] 56 mg/dL High 8-23 [facility] Comment on above: Performed By: #### B MPX, CDP #### [facility] [address] [place] [phone] [employer]: Michael Chen MD CBC with Diffon 10-01-2023 Abs. Basophil 0.03 k/uL Normal 0.00-0.20 [facility] Comment on above: Performed By: #### B MPX, CDP #### [facility] [address] [place] [phone] [employer]: Michael Chen MD Abs.Imm.Granulocyte 0.05 k/uL Normal 0.00-0.30 [facility] Comment on above: Performed By: #### B MPX, CDP #### [address] [address] [employer]: Michael Chen MD Abs.Neutrophil (Seg) 6.55 k/uL Normal 1.50-8.10 [facility] Comment on above: Performed By: #### B MPX, CDP #### [facility] [address] [place] [phone] [employer]: Michael Chen MD Basophils/100 WBC (Bld) 0 % Normal 0-2 [facility] Comment on above: Performed By: #### B MPX, CDP #### [facility] [address] [place] [address] [employer]: Michael Chen MD Eosinophils (Bld) [#/Vol] 0.10 10*3/uL Normal 0.00-0.44 [facility] Comment on above: Performed By: #### B MPX, CDP #### [facility] [address] [place] [phone] [employer]: Michael Chen MD Eosinophils/100 WBC (Bld) 1 % Normal 1-4 [facility] Comment on above: Performed By: #### B MPX, CDP #### [facility] [address] [place] [phone] [employer]: Michael Chen MD Erythrocyte distribution width (RBC) [Ratio] 13.6 % Normal 11.8-14.4 [facility] Comment on above: Performed By: #### B MPX, CDP #### [facility] [address] [place] [phone] [employer]: Michael Chen MD Hematocrit (Bld) [Volume fraction] 27.9 % Low 36.3-47.1 [facility] Comment on above: Performed By: #### B MPX, CDP #### [facility] [address] [place] [phone] [employer]: Michael Chen MD Hemoglobin (Bld) [Mass/Vol] 8.4 g/dL Low 11.9-15.1 [facility] Comment on above: Performed By: #### B MPX, CDP #### [facility] [address] [place] [phone] [employer]: Michael Chen MD Immature granulocytes/100 WBC (Bld) 1 % High 0 [facility] Comment on above: Performed By: #### B MPX, CDP #### [facility] [address] [place] [phone] [employer]: Michael Chen MD Lymphocytes (Bld) [#/Vol] 0.94 10*3/uL Low 1.10-3.70 [facility] Comment on above: Performed By: #### B MPX, CDP #### [facility] [address] [place] [phone] [employer]: Michael Chen MD Lymphocytes/100 WBC (Bld) 11 % Low 24-43 [facility] Comment on above: Performed By: #### B MPX, CDP #### [facility] [address] [place] [phone] [employer]: Michael Chen MD MCH (RBC) [Entitic mass] 30.5 pg Normal 25.2-33.5 [facility] Comment on above: Performed By: #### B MPX, CDP #### [address] [address] [employer]: Michael Chen MD MCHC (RBC) [Mass/Vol] 30.1 g/dL Normal 28.4-34.8 [facility] Comment on above: Performed By: #### B MPX, CDP #### [address] [address] [employer]: Michael Chen MD MCV (RBC) [Entitic vol] 101.5 fL Normal 82.6-102.9 [facility] Comment on above: Performed By: #### B MPX, CDP #### [address] [address] [employer]: Michael Chen MD Monocytes (Bld) [#/Vol] 0.54 10*3/uL Normal 0.10-1.20 [facility] Comment on above: Performed By: #### B MPX, CDP #### [address] [address] [employer]: Michael Chen MD Monocytes/100 WBC (Bld) 7 % Normal 3-12 [facility] Comment on above: Performed By: #### B MPX, CDP #### [address] [address] [employer]: Michael Chen MD Neutrophil (Seg) 80 % High 36-65 [facility] Comment on above: Performed By: #### B MPX, CDP #### [address] [address] [employer]: Michael Chen MD NRBC Automated 0.0 per 100 WBC Normal 0.0 [facility] Comment on above: Performed By: #### B MPX, CDP #### [facility] [address] [place] [phone] [employer]: Michael Chen MD Platelet mean volume (Bld) [Entitic vol] 8.9 fL Normal 8.1-13.5 [facility] Comment on above: Performed By: #### B MPX, CDP #### [address] [address] [employer]: Michael Chen MD Platelets (Bld) [#/Vol] 281 10*3/uL Normal 138-453 [facility] Comment on above: Performed By: #### B MPX, CDP #### [address] [address] [employer]: Michael Chen MD RBC (Bld) [#/Vol] 2.75 10*6/uL Low 3.95-5.11 [facility] Comment on above: Performed By: #### B MPX, CDP #### [address] [address] [employer]: Michael Chen MD WBC (Bld) [#/Vol] 8.2 10*3/uL Normal 3.5-11.3 [facility] Comment on above: Performed By: #### B MPX, CDP #### [address] [address] [employer]: Michael Chen MD Basic Metab w/rfx MGon 09-29 Anion gap [Moles/Vol] 12 mmol/L Normal 9-16 [facility] Comment on above: Performed By: #### B MPX, CDP #### [address] [address] [employer]: Michael Chen MD Calcium [Mass/Vol] 8.2 mg/dL Low 8.6-10.4 [facility] Comment on above: Performed By: #### B MPX, CDP #### [facility] [address] [place] [phone] [employer]: Michael Chen MD Chloride [Moles/Vol] 103 mmol/L Normal 98-107 [facility] Comment on above: Performed By: #### B MPX, CDP #### [facility] [address] [place] [phone] [employer]: Michael Chen MD CO2 [Moles/Vol] 23 mmol/L Normal 20-31 [facility] Comment on above: Performed By: #### B MPX, CDP #### [facility] [address] [place] [phone] [employer]: Michael Chen MD Creatinine [Mass/Vol] 1.6 mg/dL High 0.50-0.90 [facility] Comment on above: Performed By: #### B MPX, CDP #### [address] [address] [employer]: Michael Chen MD GFR/1.73 sq M.predicted among non-blacks MDRD (S/P/Bld) [Vol rate/Area] 35 mL/min/{1.73_m2} Low >60 [facility] Comment on above: Result Comment: These [...] affects renal tubular secretion. Performed By: #### B MPX, CDP #### [facility] [address] [address] [employer]: Michael Chen MD Glucose [Mass/Vol] 89 mg/dL Normal 74-99 [facility] Comment on above: Performed By: #### B MPX, CDP #### [facility] [address] [place] [address] [employer]: Michael Chen MD Potassium [Moles/Vol] 4.6 mmol/L Normal 3.7-5.3 [facility] Comment on above: Result Comment: SPEC IMEN SLIGHTLY HEMOLYZED, RESULTS MAY BE ADVERSELY AFFECTED. Performed By: #### B MPX, CDP #### [facility] [address] [place] [phone] [employer]: Michael Chen MD Sodium [Moles/Vol] 138 mmol/L Normal 136-145 [facility] Comment on above: Performed By: #### B MPX, CDP #### [facility] [address] [place] [phone] [employer]: Michael Chen MD Urea nitrogen [Mass/Vol] 57 mg/dL High 8-23 [facility] Comment on above: Performed By: #### B MPX, CDP #### [facility] [address] [place] [phone] [employer]: Michael Chen MD Brain Natri. Peptideon 09-29 Natriuretic peptide B (Bld) [Mass/Vol] 1428 pg/mL High 0-300 [facility] Comment on above: Result Comment: An a ge-independent cutoff point of 300 pg/ml has a 98% negative predictive value excluding acute heart failure. Performed By: #### B MPX, CDP #### [facility] [address] [place] [phone] [employer]: Michael Chen MD Liver Profileon 09-30-2023 Albumin [Mass/Vol] 3.5 g/dL Normal 3.5-5.2 [facility] Comment on above: Performed By: #### B MPX, CDP #### [facility] [address] [place] [phone] [employer]: Michael Chen MD Albumin/Glob Ratio 2.0 Normal 1.0-2.5 [facility] Comment on above: Performed By: #### B MPX, CDP #### [facility] [address] [place] [phone] [employer]: Michael Chen MD Alkaline Phos 301 U/L High 35-104 [facility] Comment on above: Performed By: #### B MPX, CDP #### [facility] [address] [place] [phone] [employer]: Michael Chen MD ALT [Catalytic activity/Vol] 17 U/L Normal 10-35 [facility] Comment on above: Performed By: #### B MPX, CDP #### [facility] [address] [place] [phone] [employer]: Michael Chen MD AST [Catalytic activity/Vol] 33 U/L Normal 10-35 [facility] Comment on above: Result Comment: SPEC IMEN SLIGHTLY HEMOLYZED, RESULTS MAY BE ADVERSELY AFFECTED. Performed By: #### B MPX, CDP #### [facility] [address] [place] [phone] [employer]: Michael Chen MD Bilirubin [Mass/Vol] 0.2 mg/dL Normal 0.00-1.20 [facility] Comment on above: Performed By: #### B MPX, CDP #### [facility] [address] [place] [phone] [employer]: Michael Chen MD Bilirubin, Indirect 0.1 mg/dL Normal 0.0-1.0 [facility] Comment on above: Performed By: #### B MPX, CDP #### [facility] [address] [place] [phone] [employer]: Michael Chen MD Bilirubin.indirect [Mass/Vol] mg/dL Normal 0.00-0.30 [facility] Comment on above: Performed By: #### B MPX, CDP #### [facility] [address] [place] [phone] [employer]: Michael Chen MD Globulin (S) [Mass/Vol] 2.1 g/dL Normal [facility] Comment on above: Performed By: #### B MPX, CDP #### [address] [address] [employer]: Michael Chen MD Protein [Mass/Vol] 5.6 g/dL Low 6.6-8.7 [facility] Comment on above: Performed By: #### B MPX, CDP #### [facility] [address] [place] [phone] [employer]: Michael Chen MD Specimen Rejectionon 024 Reason for rejection Unable to perform testing: Specimen clotted. Normal [facility] Comment on above: Performed By: #### B MPX, CDP #### [facility] [address] [place] [phone] [employer]: Michael Chen MD Source of sample .BLOOD Normal [facility] Comment on above: Performed By: #### B MPX, CDP #### [facility] [address] [place] [phone] [employer]: Michael Chen MD Test ordered CDP Normal [facility] Comment on above: Performed By: #### B MPX, CDP #### [facility] [address] [place] [phone] [employer]: Michael Chen MD XR CERVICAL SPINE (2-3 [...] Carlos Peralta MD 09/30/23 Final result Normal [facility] XR CHEST PORTABLEon 09-30-19 24 XR CHEST PORTABLE EXAMINATION: ONE XRAY VIEW [...] Carlos Peralta MD 09/30/23 Final result Normal [facility] Office Visiton 08-16-2023 Follow-up visit [id number] Loren Moser 1960 F Date Provider Department Center 08/16/2023 1596-MACIE GARCIA CARD [facility] Family History Family history unknown: Yes Level of Service:90646 [place] OFFICE/OUTPATIENT ESTABLISHED MOD MDM 30 MIN Normal [facility] Documentationon 08-07-2023 Documentation [id number] Loren Moser 1960 F Date Provider Department Center 08/07/2023 [id number] [facility] Family History Family history unknown: Yes Reason for Visit and Comments: HF inpatient satisfaction survey sent. [Other] Normal [facility] 36on 08-04-2023 36 DC to home on 08/03/19 024 Spoke to pt on 08/04/2023 Med rec completed with pts Delio Pt will need to reschedule appt with cardiology, she will call [place] [facility] to reschedule and will try to get in next week Normal [facility] 30on 08-03-2023 30 Problem: Pain - [...] lab results as appropriate Normal [facility] BASIC METABOLIC PANELon 02-0 Anion gap [Moles/Vol] 14 mmol/L Normal 7-20 [facility] Comment on above: Performed By: #### L [id number] #### [facility] ([facility]) [address] [place] [address] Calcium [Mass/Vol] 8.6 mg/dL Normal 8.6-10.3 [facility] Comment on above: Performed By: #### L [id number] #### [facility] ([facility]) [address] [place] [address] Chloride [Moles/Vol] 96 mmol/L Low 98-107 [facility] Comment on above: Performed By: #### L [id number] #### [facility] ([facility]) [address] [place] [address] CO2 [Moles/Vol] 30 mmol/L Normal 21-31 [facility] Comment on above: Performed By: #### L [id number] #### [facility] ([facility]) [address] [place] [address] Creatinine [Mass/Vol] 2.67 mg/dL High 0.60-1.20 [facility] Comment on above: Performed By: #### L [id number] #### [facility] ([facility]) [address] [place] [address] GLOMERULAR FILTRATION RATE ML/MIN/1.73 SQ M.PREDICTED 19.7 mL/min/1.73m*2 Low >60.0 [facility] Comment on above: Result Comment: The [facility]???s estimated glomerular filtration rate (eGFR) will [...] individuals. Performed By: #### L [id number] #### [facility] ([facility]) [address] [place] [address] Glucose [Mass/Vol] 78 mg/dL Normal 70-100 [facility] Comment on above: Performed By: #### L [id number] #### [facility] ([facility]) [address] [place] [address] Potassium [Moles/Vol] 3.9 mmol/L Normal 3.5-5.1 [facility] Comment on above: Performed By: #### L [id number] #### [facility] ([facility]) [address] [place] [address] Sodium [Moles/Vol] 136 mmol/L Normal 136-145 [facility] Comment on above: Performed By: #### L [id number] #### [facility] ([facility]) [address] [place] [address] Urea nitrogen [Mass/Vol] 94 mg/dL High 7-25 [facility] Comment on above: Performed By: #### L [id number] #### [facility] ([facility]) [address] [place] [address] UREA NITROGEN/CREATININE (MASS RATIO) IN SER/PLAS 35.2 Normal [facility] Comment on above: Performed By: #### L [id number] #### [facility] ([facility]) [address] [place] [address] CBC WITH AUTO DIFFERENTIALon 08-03-2023 Basophils (Bld) [#/Vol] 0.03 10*3/uL Normal 0.00-0.20 [facility] Comment on above: Performed By: #### L [id number] #### [facility] ([facility]) [address] [place] [address] Basophils/100 WBC (Bld) 0.3 % Normal 0.0-1.0 [facility] Comment on above: Performed By: #### L [id number] #### [facility] ([facility]) [address] [place] [address] Eosinophils (Bld) [#/Vol] 0.14 10*3/uL Normal 0.00-0.50 [facility] Comment on above: Performed By: #### L [id number] #### [facility] ([facility]) [address] [place] [address] Eosinophils/100 WBC (Bld) 1.4 % Normal 0.0-6.0 [facility] Comment on above: Performed By: #### L [id number] #### [facility] ([facility]) [address] [place] [address] Erythrocyte distribution width (RBC) [Ratio] 12.7 % Normal 11.5-15.0 [facility] Comment on above: Performed By: #### L [id number] #### [facility] ([facility]) [address] [place] [address] ERYTHROCYTE MEAN CORPUSCULAR HEMOGLOBIN CONCENTRATION (G/DL) BY AUTOMATED 31.6 g/dL Low 32.0-35.0 [facility] Comment on above: Performed By: #### L [id number] #### [facility] ([facility]) [address] [place] [address] Hematocrit (Bld) [Volume fraction] 29.7 % Low 36.0-48.0 [facility] Comment on above: Performed By: #### L [id number] #### [facility] ([facility]) [address] [place] [address] Hemoglobin (Bld) [Mass/Vol] 9.4 g/dL Low 12.0-15.0 [facility] Comment on above: Performed By: #### L [id number] #### [facility] ([facility]) [address] [place] [address] Immature granulocytes (Bld) [#/Vol] 0.06 10*3/uL Normal 0.00-0.20 [facility] Comment on above: Performed By: #### L [id number] #### [facility] ([facility]) [address] [place] [address] Immature granulocytes/100 WBC (Bld) 0.6 % Normal 0.0-1.0 [facility] Comment on above: Performed By: #### L [id number] #### [facility] ([facility]) [address] [place] [address] Lymphocytes (Bld) [#/Vol] 0.79 10*3/uL Low 1.20-4.00 [facility] Comment on above: Performed By: #### L [id number] #### [facility] ([facility]) [address] [place] [address] Lymphocytes/100 WBC (Bld) 8.0 % Low 20.0-45.0 [facility] Comment on above: Performed By: #### L [id number] #### [facility] ([facility]ER) [address] [place] [address] MCH (RBC) [Entitic mass] 31.4 pg Normal 27.0-33.0 [facility] Comment on above: Performed By: #### L [id number] #### [facility] [address] [place] [address] MCV (RBC) [Entitic vol] 99.3 fL High 82.0-98.0 [facility] Comment on above: Performed By: #### L [id number] #### [facility] ([facility]) [address] [place] [address] Monocytes (Bld) [#/Vol] 0.46 10*3/uL Normal 0.10-1.00 [facility] Comment on above: Performed By: #### L [id number] #### [facility] ([facility]) [address] [place] [address] Monocytes/100 WBC (Bld) 4.6 % Low 5.0-12.0 [facility] Comment on above: Performed By: #### L [id number] #### [facility] ([facility]) [address] [place] [address] Neutrophils (Bld) [#/Vol] 8.42 10*3/uL High 1.60-7.60 [facility] Comment on above: Performed By: #### L [id number] #### [facility] ([facility]) [address] [place] [address] Neutrophils/100 WBC (Bld) 85.1 % High 40.0-72.0 [facility] Comment on above: Performed By: #### L [id number] #### [facility] [address] [place] [address] NRBC (PER 100 WBCS) BY AUTOMATED COUNT 0.0 % Normal 0 [facility] Comment on above: Performed By: #### L [id number] #### [facility] ([facility]) [address] [place] [address] PLATELETS (10*3/UL) IN BLOOD AUTOMATED COUNT 211 10*3/uL Normal 150-400 [facility] Comment on above: Performed By: #### L [id number] #### [facility] ([facility]) [address] [place] [address] RBC (Bld) [#/Vol] 2.99 10*6/uL Low 3.80-5.00 [facility] Comment on above: Performed By: #### L [id number] #### [facility] ([facility]) [address] [place] [address] WBC (Bld) [#/Vol] 9.90 10*3/uL Normal 4.00-10.60 [facility] Comment on above: Performed By: #### L [id number] #### [facility] ([facility]) [address] [place] [address] 30on 08-02-2023 30 Daily Case Managemen t [...] Select all services needed for the patient [facility] (30 day convalescent stay) Please indicate your approval for this care by adding your name here: RACHEL COHEN 07/28/23 192 Therapy Orders (From admission, onward) Start Ordered 08/01/23 1008 PT eval and treat Until therapy completed Question: Reason for PT? Answer: Discharge Planning 08/01/23 1007 08/01/23 1008 OT eval and treat Until therapy completed Question: Reason for OT? Answer: Discharge Planning 08/01/23 1007 Normal [facility] 30 Problem: Pain - Adul t [...] volume excess or deficit Normal [facility] BASIC METABOLIC PANELon Anion gap [Moles/Vol] 10 mmol/L Normal 7-20 [facility] Comment on above: Performed By: #### L [id number] ####[facility] (BEAKER)[address] [place] [address] Calcium [Mass/Vol] 8.5 mg/dL Low 8.6-10.3 [facility] Comment on above: Performed By: #### L [id number] ####[facility] ([facility])[address] [place] [address] Chloride [Moles/Vol] 96 mmol/L Low 98-107 [facility] Comment on above: Performed By: #### L [id number] ####[facility] ([facility])[address] [place] [address] CO2 [Moles/Vol] 33 mmol/L High 21-31 [facility] Comment on above: Performed By: #### L [id number] ####[facility] ([facility])[address] [place] [address] Creatinine [Mass/Vol] 2.73 mg/dL High 0.60-1.20 [facility] Comment on above: Performed By: #### L [id number] ####[facility] ([facility])[address] [place] [address] GLOMERULAR FILTRATION RATE ML/MIN/1.73 SQ M.PREDICTED 19.2 mL/min/1.73m*2 Low >60.0 [facility] Comment on above: Result Comment: The [facility]???s estimated glomerular filtration rate (eGFR) will [...] of individuals. Performed By: #### L [id number] ####[facility] [place] [address] Glucose [Mass/Vol] 114 mg/dL High 70-100 [facility] Comment on above: Performed By: #### L [id number] ####[facility] ([facility])[address] [place] [address] Potassium [Moles/Vol] 3.7 mmol/L Normal 3.5-5.1 [facility] Comment on above: Performed By: #### L [id number] ####[facility] ([facility])[address] [place] [address] Sodium [Moles/Vol] 135 mmol/L Low 136-145 [facility] Comment on above: Performed By: #### L [id number] ####[facility] ([facility])[address] [place] [address] Urea nitrogen [Mass/Vol] 90 mg/dL High 7-25 [facility] Comment on above: Performed By: #### L [id number] ####[facility] ([facility])[address] [place] [address] UREA NITROGEN/CREATININE (MASS RATIO) IN SER/PLAS 33.0 Normal [facility] Comment on above: Performed By: #### L [id number] ####[facility] ([facility])[address] [place] [address] CBC WITH AUTO DIFFERENTIALon 08-02-2023 Basophils (Bld) [#/Vol] 0.03 10*3/uL Normal 0.00-0.20 [facility] Comment on above: Performed By: #### L [id number] #### [facility] ([facility]) [address] [place] [address] Basophils/100 WBC (Bld) 0.4 % Normal 0.0-1.0 [facility] Comment on above: Performed By: #### L [id number] #### [facility] [address] [place] [address] Eosinophils (Bld) [#/Vol] 0.13 10*3/uL Normal 0.00-0.50 [facility] Comment on above: Performed By: #### L [id number] #### [facility] [address] [place] [address] Eosinophils/100 WBC (Bld) 1.7 % Normal 0.0-6.0 [facility] Comment on above: Performed By: #### L [id number] #### [facility] ([facility]) [address] [place] [address] Erythrocyte distribution width (RBC) [Ratio] 12.9 % Normal 11.5-15.0 [facility] Comment on above: Performed By: #### L [id number] #### [facility] ([facility]) [address] [place] [address] ERYTHROCYTE MEAN CORPUSCULAR HEMOGLOBIN CONCENTRATION (G/DL) BY AUTOMATED 31.1 g/dL Low 32.0-35.0 [facility] Comment on above: Performed By: #### L [id number] #### [facility] ([facility]) [address] [place] [address] Hematocrit (Bld) [Volume fraction] 29.6 % Low 36.0-48.0 [facility] Comment on above: Performed By: #### L [id number] #### [facility] ([facility]) [address] [place] [address] Hemoglobin (Bld) [Mass/Vol] 9.2 g/dL Low 12.0-15.0 [facility] Comment on above: Performed By: #### L [id number] #### [facility] ([facility]) [address] [place] [address] Immature granulocytes (Bld) [#/Vol] 0.05 10*3/uL Normal 0.00-0.20 [facility] Comment on above: Performed By: #### L [id number] #### [facility] ([facility]) [address] [place] [address] Immature granulocytes/100 WBC (Bld) 0.7 % Normal 0.0-1.0 [facility] Comment on above: Performed By: #### L [id number] #### [facility] [address] [place] [address] Lymphocytes (Bld) [#/Vol] 1.62 10*3/uL Normal 1.20-4.00 [facility] Comment on above: Performed By: #### L [id number] #### [facility] ([facility]) [address] [place] [address] Lymphocytes/100 WBC (Bld) 21.7 % Normal 20.0-45.0 [facility] Comment on above: Performed By: #### L [id number] #### [facility] ([facility]) [address] [place] [address] MCH (RBC) [Entitic mass] 30.9 pg Normal 27.0-33.0 [facility] Comment on above: Performed By: #### L [id number] #### [facility] ([facility]) [address] [place] [address] MCV (RBC) [Entitic vol] 99.3 fL High 82.0-98.0 [facility] Comment on above: Performed By: #### L [id number] #### [facility] ([facility]) [address] [place] [address] Monocytes (Bld) [#/Vol] 0.53 10*3/uL Normal 0.10-1.00 [facility] Comment on above: Performed By: #### L [id number] #### [facility] ([facility]) [address] [place] [address] Monocytes/100 WBC (Bld) 7.1 % Normal 5.0-12.0 [facility] Comment on above: Performed By: #### L [id number] #### [facility] [address] [place] [address] Neutrophils (Bld) [#/Vol] 5.10 10*3/uL Normal 1.60-7.60 [facility] Comment on above: Performed By: #### L [id number] #### [facility] ([facility]) [address] [place] [address] Neutrophils/100 WBC (Bld) 68.4 % Normal 40.0-72.0 [facility] Comment on above: Performed By: #### L [id number] #### [facility] ([facility]) [address] [place] [address] NRBC (PER 100 WBCS) BY AUTOMATED COUNT 0.0 % Normal 0 [facility] Comment on above: Performed By: #### L [id number] #### [facility] ([facility]) [address] [place] [address] PLATELETS (10*3/UL) IN BLOOD AUTOMATED COUNT 249 10*3/uL Normal 150-400 [facility] Comment on above: Performed By: #### L [id number] #### [facility] ([facility]) [address] [place] [address] RBC (Bld) [#/Vol] 2.98 10*6/uL Low 3.80-5.00 [facility] Comment on above: Performed By: #### L [id number] #### [facility] ([facility]) [address] [place] [address] WBC (Bld) [#/Vol] 7.46 10*3/uL Normal 4.00-10.60 [facility] Comment on above: Performed By: #### L [id number] #### [facility] ([facility]) [address] [place] [address] MAGNESIUMon 08-02-2023 Magnesium [Mass/Vol] 2.1 mg/dL Normal 1.9-2.7 [facility] Comment on above: Performed By: #### L [id number] ####[facility] ([facility])[address] [place] [address] PHOSPHORUSon 08-02-2023 Magnesium [Mass/Vol] 5.3 mg/dL High 2.5-5.0 [facility] Comment on above: Performed By: #### L [id number] ####[facility] ([facility])[address] [place] [address] BASIC METABOLIC PANELon Anion gap [Moles/Vol] 11 mmol/L Normal 7-20 [facility] Comment on above: Performed By: #### L [id number] ####[facility] ([facility])[address] [place] [address] Calcium [Mass/Vol] 8.9 mg/dL Normal 8.6-10.3 [facility] Comment on above: Performed By: #### L [id number] ####[facility] [place] [address] Chloride [Moles/Vol] 98 mmol/L Normal 98-107 [facility] Comment on above: Performed By: #### L [id number] ####[facility] [place] [address] CO2 [Moles/Vol] 32 mmol/L High 21-31 [facility] Comment on above: Performed By: #### L [id number] ####[facility] ([facility])[address] [place] [address] Creatinine [Mass/Vol] 2.68 mg/dL High 0.60-1.20 [facility] Comment on above: Performed By: #### L [id number] ####[facility] ([facility])[address] [place] [address] GLOMERULAR FILTRATION RATE ML/MIN/1.73 SQ M.PREDICTED 19.6 mL/min/1.73m*2 Low >60.0 [facility] Comment on above: Result Comment: [facility]???s estimated glomerular filtration rate (eGFR) will [...] of individuals. Performed By: #### L [id number] ####[facility] [place] [address] Glucose [Mass/Vol] 71 mg/dL Normal 70-100 [facility] Comment on above: Performed By: #### L [id number] ####[facility] ([facility])[address] [place] [address] Potassium [Moles/Vol] 4.1 mmol/L Normal 3.5-5.1 [facility] Comment on above: Performed By: #### L [id number] ####[facility] ([facility])[address] [place] [address] Sodium [Moles/Vol] 137 mmol/L Normal 136-145 [facility] Comment on above: Performed By: #### L [id number] ####[facility] ([facility])[address] [place] [address] Urea nitrogen [Mass/Vol] 87 mg/dL High 7-25 [facility] Comment on above: Performed By: #### L [id number] ####[facility] ([facility])[address] [place] [address] UREA NITROGEN/CREATININE (MASS RATIO) IN SER/PLAS 32.5 Normal [facility] Comment on above: Performed By: #### L [id number] ####[facility] ([facility])[address] [place] [address] CBC WITH AUTO DIFFERENTIALon 08-01-2023 Basophils (Bld) [#/Vol] 0.03 10*3/uL Normal 0.00-0.20 [facility] Comment on above: Performed By: #### L [id number] ####[facility] ([facility])[address] [place] [address] Basophils/100 WBC (Bld) 0.4 % Normal 0.0-1.0 [facility] Comment on above: Performed By: #### L [id number] ####[facility] ([facility])[address] [place] [address] Eosinophils (Bld) [#/Vol] 0.11 10*3/uL Normal 0.00-0.50 [facility] Comment on above: Performed By: #### L [id number] ####[facility] ([facility])[address] [place] [address] Eosinophils/100 WBC (Bld) 1.5 % Normal 0.0-6.0 [facility] Comment on above: Performed By: #### L [id number] ####[facility] ([facility])[address] [place] [address] Erythrocyte distribution width (RBC) [Ratio] 12.8 % Normal 11.5-15.0 [facility] Comment on above: Performed By: #### L [id number] ####[facility] [place] [address] ERYTHROCYTE MEAN CORPUSCULAR HEMOGLOBIN CONCENTRATION (G/DL) BY AUTOMATED 31.1 g/dL Low 32.0-35.0 [facility] Comment on above: Performed By: #### L [id number] ####[facility] [place] [address] Hematocrit (Bld) [Volume fraction] 31.8 % Low 36.0-48.0 [facility] Comment on above: Performed By: #### L [id number] ####[facility] ([facility])[address] [place] [address] Hemoglobin (Bld) [Mass/Vol] 9.9 g/dL Low 12.0-15.0 [facility] Comment on above: Performed By: #### L [id number] ####[facility] ([facility])[address] [place] [address] Immature granulocytes (Bld) [#/Vol] 0.05 10*3/uL Normal 0.00-0.20 [facility] Comment on above: Performed By: #### L [id number] ####[facility] ([facility])[address] [place] [address] Immature granulocytes/100 WBC (Bld) 0.7 % Normal 0.0-1.0 [facility] Comment on above: Performed By: #### L [id number] ####[facility] ([facility])[address] [place] [address] Lymphocytes (Bld) [#/Vol] 1.55 10*3/uL Normal 1.20-4.00 [facility] Comment on above: Performed By: #### L [id number] ####[facility] ([facility])[address] [place] [address] Lymphocytes/100 WBC (Bld) 21.0 % Normal 20.0-45.0 [facility] Comment on above: Performed By: #### L [id number] ####[facility] ([facility])[address] [place] [address] MCH (RBC) [Entitic mass] 30.7 pg Normal 27.0-33.0 [facility] Comment on above: Performed By: #### L [id number] ####[facility] ([facility])[address] [place] [address] MCV (RBC) [Entitic vol] 98.5 fL High 82.0-98.0 [facility] Comment on above: Performed By: #### L [id number] ####[facility] ([facility])[address] [place] [address] Monocytes (Bld) [#/Vol] 0.55 10*3/uL Normal 0.10-1.00 [facility] Comment on above: Performed By: #### L [id number] ####[facility] ([facility])[address] [place] [address] Monocytes/100 WBC (Bld) 7.5 % Normal 5.0-12.0 [facility] Comment on above: Performed By: #### L [id number] ####[facility] ([facility])[address] [place] [address] Neutrophils (Bld) [#/Vol] 5.08 10*3/uL Normal 1.60-7.60 [facility] Comment on above: Performed By: #### L [id number] ####[facility] ([facility])[address] [place] [address] Neutrophils/100 WBC (Bld) 68.9 % Normal 40.0-72.0 [facility] Comment on above: Performed By: #### L [id number] ####[facility] ([facility])[address] [address] NRBC (PER 100 WBCS) BY AUTOMATED COUNT 0.0 % Normal 0 [facility] Comment on above: Performed By: #### L [id number] ####[facility] ([facility])[address] [address] PLATELETS (10*3/UL) IN BLOOD AUTOMATED COUNT 270 10*3/uL Normal 150-400 [facility] Comment on above: Performed By: #### L [id number] ####[facility] ([facility])[address] [place] [address] RBC (Bld) [#/Vol] 3.23 10*6/uL Low 3.80-5.00 [facility] Comment on above: Performed By: #### L [id number] ####[facility] ([facility])[address] [place] [address] WBC (Bld) [#/Vol] 7.37 10*3/uL Normal 4.00-10.60 [facility] Comment on above: Performed By: #### L [id number] ####[facility] ([facility])[address] [place] [address] MAGNESIUMon 08-01-2023 Magnesium [Mass/Vol] 1.8 mg/dL Low 1.9-2.7 [facility] Comment on above: Performed By: #### L [id number] ####[facility] ([facility])[address] [place] [address] PHOSPHORUSon 08-01-2023 Magnesium [Mass/Vol] 5.4 mg/dL High 2.5-5.0 [facility] Comment on above: Performed By: #### L [id number] ####[facility] ([facility])[address] [place] [address] TROPONIN Ion 08-01-2023 Troponin I.cardiac [Mass/Vol] 0.01 ng/mL Normal 0.00-0.04 [facility] Comment on above: Performed By: #### L [id number] ####[facility] ([facility])[address] [place] [address] CBCon 07-31-2023 Erythrocyte distribution width (RBC) [Ratio] 13.0 % Normal 11.5-15.0 [facility] Comment on above: Performed By: #### L [id number] ####[facility] ([facility])[address] [place] [address] ERYTHROCYTE MEAN CORPUSCULAR HEMOGLOBIN CONCENTRATION (G/DL) BY AUTOMATED 32.3 g/dL Normal 32.0-35.0 [facility] Comment on above: Performed By: #### L [id number] ####[facility] ([facility])[address] [place] [address] Hematocrit (Bld) [Volume fraction] 28.2 % Low 36.0-48.0 [facility] Comment on above: Performed By: #### L [id number] ####[facility] ([facility])[address] [place] [address] Hemoglobin (Bld) [Mass/Vol] 9.1 g/dL Low 12.0-15.0 [facility] Comment on above: Performed By: #### L [id number] ####[facility] ([facility])[address] [place] [address] MCH (RBC) [Entitic mass] 31.4 pg Normal 27.0-33.0 [facility] Comment on above: Performed By: #### L [id number] ####[facility] ([facility])[address] [place] [address] MCV (RBC) [Entitic vol] 97.2 fL Normal 82.0-98.0 [facility] Comment on above: Performed By: #### L [id number] ####[facility] ([facility])[address] [place] [address] PLATELETS (10*3/UL) IN BLOOD AUTOMATED COUNT 247 10*3/uL Normal 150-400 [facility] Comment on above: Performed By: #### L [id number] ####[facility] ([facility])[address] [place] [address] RBC (Bld) [#/Vol] 2.90 10*6/uL Low 3.80-5.00 [facility] Comment on above: Performed By: #### L [id number] ####[facility] ([facility])[address] [place] [address] WBC (Bld) [#/Vol] 6.08 10*3/uL Normal 4.00-10.60 [facility] Comment on above: Performed By: #### L [id number] ####[facility] ([facility])[address] [place] [address] COMPREHENSIVE METABOLIC PANE Sameer 07-31-2023 Albumin [Mass/Vol] 3.2 g/dL Low 3.5-5.7 [facility] Comment on above: Performed By: #### L [id number] #### [facility] ([facility]) [address] [place] [address] ALP [Catalytic activity/Vol] 156 U/L High 34-104 [facility] Comment on above: Performed By: #### L [id number] #### [facility] ([facility]) [address] [place] [address] ALT [Catalytic activity/Vol] 13 U/L Normal 7-52 [facility] Comment on above: Performed By: #### L [id number] #### [facility] ([facility]) [address] [place] [address] Anion gap [Moles/Vol] 11 mmol/L Normal 7-20 [facility] Comment on above: Performed By: #### L [id number] #### [facility] ([facility]) [address] [place] [address] AST [Catalytic activity/Vol] 16 U/L Normal 13-39 [facility] Comment on above: Performed By: #### L [id number] #### [facility] ([facility]) [address] [place] [address] Bilirubin [Mass/Vol] 0.2 mg/dL Low 0.3-1.0 [facility] Comment on above: Performed By: #### L [id number] #### [facility] ([facility]) [address] [place] [address] Calcium [Mass/Vol] 8.7 mg/dL Normal 8.6-10.3 [facility] Comment on above: Performed By: #### L [id number] #### [facility] ([facility]) [address] [place] [address] Chloride [Moles/Vol] 101 mmol/L Normal 98-107 [facility] Comment on above: Performed By: #### L [id number] #### [facility] ([facility]) [address] [place] [address] CO2 [Moles/Vol] 29 mmol/L Normal 21-31 [facility] Comment on above: Performed By: #### L [id number] #### [facility] ([facility]) [address] [place] [address] Creatinine [Mass/Vol] 2.51 mg/dL High 0.60-1.20 [facility] Comment on above: Performed By: #### L [id number] #### [facility] ([facility]) [address] [place] [address] GLOMERULAR FILTRATION RATE ML/MIN/1.73 SQ M.PREDICTED 21.2 mL/min/1.73m*2 Low >60.0 [facility] Comment on above: Result Comment: The [facility]???s estimated glomerular filtration rate (eGFR) will [...] group of individuals. Performed By: #### L [id number] #### [facility] ([facility]) [address] [place] [address] Glucose [Mass/Vol] 86 mg/dL Normal 70-100 [facility] Comment on above: Performed By: #### L [id number] #### [facility] ([facility]) [address] [place] [address] Potassium [Moles/Vol] 3.9 mmol/L Normal 3.5-5.1 [facility] Comment on above: Performed By: #### L [id number] #### [facility] ([facility]) [address] [place] [address] Protein [Mass/Vol] 5.5 g/dL Low 6.0-8.3 [facility] Comment on above: Performed By: #### L [id number] #### [facility] ([facility]) [address] [place] [address] Sodium [Moles/Vol] 137 mmol/L Normal 136-145 [facility] Comment on above: Performed By: #### L [id number] #### [facility] ([facility]) [address] [place] [address] Urea nitrogen [Mass/Vol] 88 mg/dL High 7-25 [facility] Comment on above: Performed By: #### L [id number] #### [facility] ([facility]) [address] [place] [address] UREA NITROGEN/CREATININE (MASS RATIO) IN SER/PLAS 35.1 Normal [facility] Comment on above: Performed By: #### L [id number] #### [facility] ([facility]) [address] [place] [address] HEPATITIS B CORE ANTIBODY, T Jameson 02-05-2024 HEPATITIS B VIRUS CORE AB (PRESENCE) IN SER/PLAS BY IMM Non-Reactive Normal Nonreactive [facility] Comment on above: Performed By: #### L [id number] ####[facility] ([facility])[address] [place] [address] HEPATITIS B SURFACE ANTIBODY QUANTon 07-31-2023 HEPATITIS B VIRUS SURFACE AB (MIU/ML) IN SERUM 1.84 mIU/mL Normal [facility] Comment on above: Result Comment: INTE RPRETATION: NONREACTIVE<8.00 mIU/mL INDETERMINATE8.00 - 12.00 mIU/mL REACTIVE>12 mIU/mL Performed By: #### L [id number] #### [facility] ([facility]) [address] [place] [address] HEPATITIS B SURFACE ANTIGENo n 07-31-2023 HEPATITIS B VIRUS SURFACE AG PRESENCE IN SERUM Non-Reactive Normal Nonreactive [facility] Comment on above: Performed By: #### L [id number] #### [facility] ([facility]) [address] [place] [address] HEPATITIS C ANTIBODYon 07-31 HEPATITIS C VIRUS AB PRESENCE IN SERUM Non-Reactive Normal Nonreactive [facility] Comment on above: Performed By: #### L [id number] #### [facility] ([facility]) [address] [place] [address] MAGNESIUMon 07-31-2023 Magnesium [Mass/Vol] 1.6 mg/dL Low 1.9-2.7 [facility] Comment on above: Performed By: #### L [id number] ####[facility] ([facility])[address] [place] [address] PROTEIN ELECTROPHORESIS, URI NE, 24 HOURon 07-31-2023 Protein (U) [Mass/Vol] 10.8 mg/dL Normal Un [facility] Comment on above: Result Comment: Ther e are no established reference values for random urine specimens. Performed By: #### L [id number] ####[facility] ([facility])[address] [place] [address] UPEP INTERPRETATION Please see attached report. Normal [facility] Comment on above: Performed By: #### L [id number] ####[facility] [place] [address] BASIC METABOLIC PANELon 02-0 Anion gap [Moles/Vol] 12 mmol/L Normal 7-20 [facility] Comment on above: Performed By: #### L [id number] #### [facility] ([facility]) [address] [place] [address] Calcium [Mass/Vol] 8.4 mg/dL Low 8.6-10.3 [facility] Comment on above: Performed By: #### L [id number] #### [facility] ([facility]) [address] [place] [address] Chloride [Moles/Vol] 103 mmol/L Normal 98-107 [facility] Comment on above: Performed By: #### L [id number] #### [facility] ([facility]) [address] [place] [address] CO2 [Moles/Vol] 25 mmol/L Normal 21-31 [facility] Comment on above: Performed By: #### L [id number] #### [facility] ([facility]) [address] [place] [address] Creatinine [Mass/Vol] 2.95 mg/dL High 0.60-1.20 [facility] Comment on above: Performed By: #### L [id number] #### [facility] ([facility]) [address] [place] [address] GLOMERULAR FILTRATION RATE ML/MIN/1.73 SQ M.PREDICTED 17.5 mL/min/1.73m*2 Low >60.0 [facility] Comment on above: Result Comment: The [facility]???s estimated glomerular filtration rate (eGFR) will [...] group of individuals. Performed By: #### L [id number] #### [facility] ([facility]) [address] [place] [address] Glucose [Mass/Vol] 84 mg/dL Normal 70-100 [facility] Comment on above: Performed By: #### L [id number] #### [facility] ([facility]) [address] [place] [address] Potassium [Moles/Vol] 4.2 mmol/L Normal 3.5-5.1 [facility] Comment on above: Performed By: #### L [id number] #### [facility] ([facility]) [address] [place] [address] Sodium [Moles/Vol] 136 mmol/L Normal 136-145 [facility] Comment on above: Performed By: #### L [id number] #### [facility] ([facility]) [address] [place] [address] Urea nitrogen [Mass/Vol] 96 mg/dL High 7-25 [facility] Comment on above: Performed By: #### L [id number] #### [facility] ([facility]) [address] [place] [address] UREA NITROGEN/CREATININE (MASS RATIO) IN SER/PLAS 32.5 Normal [facility] Comment on above: Performed By: #### L [id number] #### [facility] ([facility]) [address] [place] [address] CBCon 07-30-2023 Erythrocyte distribution width (RBC) [Ratio] 13.2 % Normal 11.5-15.0 [facility] Comment on above: Performed By: #### L [id number] #### [facility] ([facility]) [address] [place] [address] ERYTHROCYTE MEAN CORPUSCULAR HEMOGLOBIN CONCENTRATION (G/DL) BY AUTOMATED 32.0 g/dL Normal 32.0-35.0 [facility] Comment on above: Performed By: #### L [id number] #### [facility] [address] [place] [address] Hematocrit (Bld) [Volume fraction] 28.1 % Low 36.0-48.0 [facility] Comment on above: Performed By: #### L [id number] #### [facility] ([facility]) [address] [place] [address] Hemoglobin (Bld) [Mass/Vol] 9.0 g/dL Low 12.0-15.0 [facility] Comment on above: Performed By: #### L [id number] #### [facility] [address] [place] [address] MCH (RBC) [Entitic mass] 31.3 pg Normal 27.0-33.0 [facility] Comment on above: Performed By: #### L [id number] #### [facility] ([facility]) [address] [place] [address] MCV (RBC) [Entitic vol] 97.6 fL Normal 82.0-98.0 [facility] Comment on above: Performed By: #### L [id number] #### [facility] [address] [place] [address] PLATELETS (10*3/UL) IN BLOOD AUTOMATED COUNT 245 10*3/uL Normal 150-400 [facility] Comment on above: Performed By: #### L [id number] #### [facility] [address] [place] [address] RBC (Bld) [#/Vol] 2.88 10*6/uL Low 3.80-5.00 [facility] Comment on above: Performed By: #### L [id number] #### [facility] [address] [place] [address] WBC (Bld) [#/Vol] 5.95 10*3/uL Normal 4.00-10.60 [facility] Comment on above: Performed By: #### L [id number] #### [facility] ([facility]) [address] [place] [address] ALBUMINon 07-29-2023 Albumin [Mass/Vol] 3.3 g/dL Low 3.5-5.7 [facility] Comment on above: Performed By: #### L [id number] ####[facility] ([facility])[address] [place] [address] Performed By: #### L [id number] #### [facility] ([facility]) [address] [place] [address] BASIC METABOLIC PANELon Anion gap [Moles/Vol] 14 mmol/L Normal 7-20 [facility] Comment on above: Performed By: #### L [id number] #### [facility] ([facility]) [address] [place] [address] Calcium [Mass/Vol] 8.0 mg/dL Low 8.6-10.3 [facility] Comment on above: Performed By: #### L [id number] #### [facility] ([facility]) [address] [place] [address] Chloride [Moles/Vol] 104 mmol/L Normal 98-107 [facility] Comment on above: Performed By: #### L [id number] #### [facility] ([facility]) [address] [place] [address] CO2 [Moles/Vol] 21 mmol/L Normal 21-31 [facility] Comment on above: Performed By: #### L [id number] #### [facility] [address] [place] [address] Creatinine [Mass/Vol] 3.42 mg/dL High 0.60-1.20 [facility] Comment on above: Performed By: #### L [id number] #### [facility] ([facility]) [address] [place] [address] GLOMERULAR FILTRATION RATE ML/MIN/1.73 SQ M.PREDICTED 14.7 mL/min/1.73m*2 Low >60.0 [facility] Comment on above: Result Comment: [facility]???s estimated glomerular filtration rate (eGFR) will [...] individuals. Performed By: #### L [id number] #### [facility] ([facility]) [address] [place] [address] Glucose [Mass/Vol] 75 mg/dL Normal 70-100 [facility] Comment on above: Performed By: #### L [id number] #### [facility] ([facility]) [address] [place] [address] Potassium [Moles/Vol] 5.1 mmol/L Normal 3.5-5.1 [facility] Comment on above: Performed By: #### L [id number] #### [facility] ([facility]) [address] [place] [address] Sodium [Moles/Vol] 134 mmol/L Low 136-145 [facility] Comment on above: Performed By: #### L [id number] #### [facility] [address] [place] [address] Urea nitrogen [Mass/Vol] 104 mg/dL High 7-25 [facility] Comment on above: Performed By: #### L [id number] #### [facility] ([facility]) [address] [place] [address] UREA NITROGEN/CREATININE (MASS RATIO) IN SER/PLAS 30.4 Normal [facility] Comment on above: Performed By: #### L [id number] #### [facility] ([facility]) [address] [place] [address] Anion gap [Moles/Vol] 14 mmol/L Normal 7-20 [facility] Comment on above: Performed By: #### L [id number] #### [facility] ([facility]) [address] [place] [address] Calcium [Mass/Vol] 7.5 mg/dL Low 8.6-10.3 [facility] Comment on above: Performed By: #### L [id number] #### [facility] ([facility]) [address] [place] [address] Chloride [Moles/Vol] 104 mmol/L Normal 98-107 [facility] Comment on above: Performed By: #### L [id number] #### [facility] ([facility]) [address] [place] [address] CO2 [Moles/Vol] 21 mmol/L Normal 21-31 [facility] Comment on above: Performed By: #### L [id number] #### [facility] ([facility]) [address] [place] [address] Creatinine [Mass/Vol] 3.52 mg/dL High 0.60-1.20 [facility] Comment on above: Performed By: #### L [id number] #### [facility] ([facility]) [address] [place] [address] GLOMERULAR FILTRATION RATE ML/MIN/1.73 SQ M.PREDICTED 14.2 mL/min/1.73m*2 Low >60.0 [facility] Comment on above: Result Comment: [facility]???s estimated glomerular filtration rate (eGFR) will [...] individuals. Performed By: #### L [id number] #### [facility] ([facility]) [address] [place] [address] Glucose [Mass/Vol] 82 mg/dL Normal 70-100 [facility] Comment on above: Performed By: #### L [id number] #### [facility] ([facility]) [address] [place] [address] Potassium [Moles/Vol] 4.9 mmol/L Normal 3.5-5.1 [facility] Comment on above: Performed By: #### L [id number] #### [facility] ([facility]) [address] [place] [address] Sodium [Moles/Vol] 134 mmol/L Low 136-145 [facility] Comment on above: Performed By: #### L [id number] #### [facility] ([facility]) [address] [place] [address] Urea nitrogen [Mass/Vol] 105 mg/dL High 7-25 [facility] Comment on above: Performed By: #### L [id number] #### [facility] ([facility]) [address] [place] [address] UREA NITROGEN/CREATININE (MASS RATIO) IN SER/PLAS 29.8 Normal [facility] Comment on above: Performed By: #### L [id number] #### [facility] ([facility]) [address] [place] [address] CBC WITH AUTO DIFFERENTIALon 07-29-2023 Basophils (Bld) [#/Vol] 0.02 10*3/uL Normal 0.00-0.20 [facility] Comment on above: Performed By: #### L [id number] #### [facility] ([facility]) [address] [place] [address] Basophils/100 WBC (Bld) 0.3 % Normal 0.0-1.0 [facility] Comment on above: Performed By: #### L [id number] #### [facility] ([facility]) [address] [place] [address] Eosinophils (Bld) [#/Vol] 0.12 10*3/uL Normal 0.00-0.50 [facility] Comment on above: Performed By: #### L [id number] #### [facility] ([facility]) [address] [place] [address] Eosinophils/100 WBC (Bld) 1.9 % Normal 0.0-6.0 [facility] Comment on above: Performed By: #### L [id number] #### [facility] ([facility]) [address] [place] [address] Erythrocyte distribution width (RBC) [Ratio] 13.5 % Normal 11.5-15.0 [facility] Comment on above: Performed By: #### L [id number] #### [facility] ([facility]) [address] [place] [address] ERYTHROCYTE MEAN CORPUSCULAR HEMOGLOBIN CONCENTRATION (G/DL) BY AUTOMATED 31.5 g/dL Low 32.0-35.0 [facility] Comment on above: Performed By: #### L [id number] #### [facility] ([facility]) [address] [place] [address] Hematocrit (Bld) [Volume fraction] 27.6 % Low 36.0-48.0 [facility] Comment on above: Performed By: #### L [id number] #### [facility] ([facility]) [address] [place] [address] Hemoglobin (Bld) [Mass/Vol] 8.7 g/dL Low 12.0-15.0 [facility] Comment on above: Performed By: #### L [id number] #### [facility] [address] [place] [address] Immature granulocytes (Bld) [#/Vol] 0.06 10*3/uL Normal 0.00-0.20 [facility] Comment on above: Performed By: #### L [id number] #### [facility] ([facility]) [address] [place] [address] Immature granulocytes/100 WBC (Bld) 1.0 % Normal 0.0-1.0 [facility] Comment on above: Performed By: #### L [id number] #### [facility] ([facility]) [address] [place] [address] Lymphocytes (Bld) [#/Vol] 1.28 10*3/uL Normal 1.20-4.00 [facility] Comment on above: Performed By: #### L [id number] #### [facility] ([facility]) [address] [place] [address] Lymphocytes/100 WBC (Bld) 20.4 % Normal 20.0-45.0 [facility] Comment on above: Performed By: #### L [id number] #### [facility] ([facility]) [address] [place] [address] MCH (RBC) [Entitic mass] 31.3 pg Normal 27.0-33.0 [facility] Comment on above: Performed By: #### L [id number] #### [facility] ([facility]) [address] [facility] [place] [address] MCV (RBC) [Entitic vol] 99.3 fL High 82.0-98.0 [facility] Comment on above: Performed By: #### L [id number] #### [facility] ([facility]) [address] [place] [address] Monocytes (Bld) [#/Vol] 0.54 10*3/uL Normal 0.10-1.00 [facility] Comment on above: Performed By: #### L [id number] #### [facility] HOSPITAL) [address] [place] [address] Monocytes/100 WBC (Bld) 8.6 % Normal 5.0-12.0 [facility] Comment on above: Performed By: #### L [id number] #### [facility] ([facility]) [address] [place] [address] Neutrophils (Bld) [#/Vol] 4.24 10*3/uL Normal 1.60-7.60 [facility] Comment on above: Performed By: #### L [id number] #### [facility] ([facility]) [address] [place] [address] Neutrophils/100 WBC (Bld) 67.8 % Normal 40.0-72.0 [facility] Comment on above: Performed By: #### L [id number] #### [facility] ([facility]) [address] [place] [address] NRBC (PER 100 WBCS) BY AUTOMATED COUNT 0.0 % Normal 0 [facility] Comment on above: Performed By: #### L [id number] #### [facility] ([facility]) [address] [place] [address] PLATELETS (10*3/UL) IN BLOOD AUTOMATED COUNT 268 10*3/uL Normal 150-400 [facility] Comment on above: Performed By: #### L [id number] #### [facility] ([facility]) [address] [place] [address] RBC (Bld) [#/Vol] 2.78 10*6/uL Low 3.80-5.00 [facility] Comment on above: Performed By: #### L [id number] #### [facility] ([facility]) [address] [place] [address] WBC (Bld) [#/Vol] 6.26 10*3/uL Normal 4.00-10.60 [facility] Comment on above: Performed By: #### L [id number] #### [facility] ([facility]) [address] [place] [address] CONSULTon 07-29-2023 CONSULT ----- ----- Attestation signed by Rinku Tan MD at 07/29/2023 8:52 PM I personally saw and examined the patient on the same date of service as resident, Dr. Villavicencio. I discussed the findings and therapeutic plan with the resident and agree with the documentation. Pt had tecent admission to local hospital in [place] for [place] and hypervolemia, her s.cr was >4 on 07/28/23, we discussed potential need to start ORDER CLERK given hypervolemia and uremic symptoms (N/v, confusion [...] gastric bypass surgery who initially presented to [facility] with concerns for worsening lower extremity edema, after gaining 50 pounds within past week. Patient was evaluated by PCP who increased Bumex dose from 1 mg TID to 3 mg TID but patient had no improvement in symptoms. On presentation to [place], patient's creatinine was 4.55 (baseline 1.8-2), phosphorus 11.2, potassium 5.7, magnesium 1.8, hemoglobin 9.2 and BUN 122. Patient was initiated on Bumex drip but developed hypotension and was changed to IV pushes. Patient was subsequently transferred to [facility] Upon assessment at [facility], patient has downtrend in Cr to [...] (more content not included)... Normal [facility] CONSULT ----- ----- Attestation signed by [...] Martinez MD, MPH, [facility], [facility], [facility] Interventional Cardiology Pager Email: [email or web address] ----- Cardiology Consult Note Reason for Consult: Bilaterally worsening lower extremity edema with orthopnea, concerning for heart failure exacerbation. HPI: Mabel Moser is a 63 y.o. female with PMH of alpha-1 antitrypsin carrier, HFpEF, CKD 3A, HTN, GERD, hypothyroidism, CVA, seizures, DVT (on Eliquis at home), morbid obesity s/p gastric bypass surgery who initially presented to [facility] with concerns for bilateral worsening lower extremity [...] duplex ultrasound. She was then transferred to [facility]. At [facility], her creatinine did improved slightly to 3.64, hemoglobin 8.5, troponin 0.01, BNP 265. She was initiated on IV Lasix 80 mg 3 times daily. Patient tells me that she did have a TTE performed at [facility] 2 months back but there are no [...] in the past she was admitted to [facility] in 2018 with fluid overload and responded [...] (more content not included)... Normal [facility] CREATININE, URINE, RANDOMon 07-29-2023 Creatinine (U) [Mass/Vol] 17.0 mg/dL Low 26-299 [facility] Comment on above: Performed By: #### L [id number] #### [facility] ([facility]) [address] [place] [address] HEMOGLOBIN A1Con 07-29-2023 Glucose [Mass/Vol] 82 mg/dL Normal [facility] Comment on above: Performed By: #### L [id number] ####[facility] ([facility])[address] [place] [address] HbA1c (Bld) [Mass fraction] 4.5 % Normal 4.0-6.0 [facility] Comment on above: Performed By: #### L [id number] ####[facility] ([facility])[address] [place] [address] HEPATIC FUNCTION PANELon ALP [Catalytic activity/Vol] 150 U/L High 34-104 [facility] Comment on above: Performed By: #### L [id number] #### [facility] ([facility]) [address] [place] [address] ALT [Catalytic activity/Vol] 19 U/L Normal 7-52 [facility] Comment on above: Performed By: #### L [id number] #### [facility] ([facility]) [address] [place] [address] AST [Catalytic activity/Vol] 24 U/L Normal 13-39 [facility] Comment on above: Performed By: #### L [id number] #### [facility] [address] [place] [address] Bilirubin [Mass/Vol] 0.3 mg/dL Normal 0.3-1.0 [facility] Comment on above: Performed By: #### L [id number] #### [facility] ([facility]) [address] [place] [address] Magnesium [Mass/Vol] 0.1 mg/dL Normal 0-0.2 [facility] Comment on above: Performed By: #### L [id number] #### [facility] [address] [place] [address] Protein [Mass/Vol] 5.6 g/dL Low 6.0-8.3 [facility] Comment on above: Performed By: #### L [id number] #### [facility] ([facility]) [address] [place] [address] LIPID PANELon 07-29-2023 CHOL/HDL 2.0 mg/dL Normal [facility] Comment on above: Performed By: #### L [id number] #### [facility] ([facility]) [address] [place] [address] Cholesterol [Mass/Vol] 155 mg/dL Normal 120-200 [facility] Comment on above: Performed By: #### L [id number] #### [facility] ([facility] [address] [place] [address] Magnesium [Mass/Vol] 46 mg/dL Normal 40-149 [facility] Comment on above: Result Comment: TRIG LYCERIDE REFERENCE RANGE: 20 YEARS AND OLDER CARDIOVASCULAR RISK LESS THAN 150 mg/dL LOW RISK 150 TO 199 mg/dL BORDERLINE RISK 200 mg/dL AND GREATER HIGH RISK Performed By: #### L [id number] #### [facility] [address] [place] [address] Magnesium [Mass/Vol] 67 mg/dL Normal 0-160 [facility] Comment on above: Performed By: #### L [id number] #### [facility] ([facility]) [address] [place] [address] Magnesium [Mass/Vol] 79 mg/dL Normal 23-92 [facility] Comment on above: Performed By: #### L [id number] #### [facility] ([facility]) [address] [place] [address] NON HDL CHOL. (LDL+VLDL) 76 Normal [facility] Comment on above: Performed By: #### L [id number] #### [facility] ([facility]) [address] [place] [address] TOTAL VLDL-C 9 mg/dL Normal 0-40 [facility] Comment on above: Performed By: #### L [id number] #### [facility] ([facility]) [address] [place] [address] MAGNESIUMon 07-29-2023 Magnesium [Mass/Vol] 2.0 mg/dL Normal 1.9-2.7 [facility] Comment on above: Performed By: #### L [id number] #### [facility] ([facility]) [address] [place] [address] PROTIME-INRon 07-29-2023 INR IN PPP BY COAGULATION ASSAY 1.15 High 0.90-1.10 [facility] Comment on above: Result Comment: ACCC [...] RANGE. CHEST 1995;[id number]. Performed By: #### L [id number] #### [facility] ([facility]) [address] [place] [address] PROTHROMBIN TIME (PT) IN PPP BY COAGULATION ASSAY 14.8 Seconds Normal 12.3-14.8 [facility] Comment on above: Performed By: #### L [id number] #### [facility] ([facility]) [address] [place] [address] TSH3 REFLEX TO FT4on 07-29- 024 THYROTROPIN (MIU/L) IN SER/PLAS BY DETECTION LIMIT <= 0.05 MIU/L 1.50 mIU/L Normal 0.34-5.60 [facility] Comment on above: Performed By: #### L [id number] ####[facility] ([facility])[address] [place] [address] B-TYPE NATRIURETIC PEPTIDEon 07-28-2023 Natriuretic peptide B (Bld) [Mass/Vol] 265 pg/mL High 0-100 [facility] Comment on above: Performed By: #### L [id number] #### [facility] ([facility]) [address] [place] [address] BASIC METABOLIC PANELon Anion gap [Moles/Vol] 15 mmol/L Normal 7-20 [facility] Comment on above: Performed By: #### L [id number] ####[facility] ([facility])[address] [place] [address] Calcium [Mass/Vol] 7.3 mg/dL Low 8.6-10.3 [facility] Comment on above: Performed By: #### L [id number] ####[facility] ([facility])[address] [place] [address] Chloride [Moles/Vol] 105 mmol/L Normal 98-107 [facility] Comment on above: Performed By: #### L [id number] ####[facility] ([facility])[address] [place] [address] CO2 [Moles/Vol] 20 mmol/L Low 21-31 [facility] Comment on above: Performed By: #### L [id number] ####[facility] ([facility])[address] [place] [address] Creatinine [Mass/Vol] 3.64 mg/dL High 0.60-1.20 [facility] Comment on above: Performed By: #### L [id number] ####[facility] ([facility])[address] [place] [address] GLOMERULAR FILTRATION RATE ML/MIN/1.73 SQ M.PREDICTED 13.6 mL/min/1.73m*2 Low >60.0 [facility] Comment on above: Result Comment: The [facility]???s estimated glomerular filtration rate (eGFR) will [...] of individuals. Performed By: #### L [id number] ####[facility] ([facility])[address] [place] [address] Glucose [Mass/Vol] 80 mg/dL Normal 70-100 [facility] Comment on above: Performed By: #### L [id number] ####[facility] ([facility])[address] [place] [address] Potassium [Moles/Vol] 5.7 mmol/L High 3.5-5.1 [facility] Comment on above: Performed By: #### L [id number] ####[facility] ([facility])[address] [place] [address] Sodium [Moles/Vol] 134 mmol/L Low 136-145 [facility] Comment on above: Performed By: #### L [id number] ####[facility] ([facility])[address] [place] [address] Urea nitrogen [Mass/Vol] 109 mg/dL High 7-25 [facility] Comment on above: Performed By: #### L [id number] ####[facility] ([facility])[address] [place] [address] UREA NITROGEN/CREATININE (MASS RATIO) IN SER/PLAS 29.9 Normal [facility] Comment on above: Performed By: #### L [id number] ####[facility] ([facility])[address] [place] [address] CBC WITH AUTO DIFFERENTIALon 07-28-2023 Basophils (Bld) [#/Vol] 0.02 10*3/uL Normal 0.00-0.20 [facility] Comment on above: Performed By: #### L [id number] #### [facility] ([facility]) [address] [place] [address] Basophils/100 WBC (Bld) 0.3 % Normal 0.0-1.0 [facility] Comment on above: Performed By: #### L [id number] #### [facility] ([facility]) [address] [place] [address] Eosinophils (Bld) [#/Vol] 0.07 10*3/uL Normal 0.00-0.50 [facility] Comment on above: Performed By: #### L [id number] #### [facility] ([facility]) [address] [place] [address] Eosinophils/100 WBC (Bld) 1.1 % Normal 0.0-6.0 [facility] Comment on above: Performed By: #### L [id number] #### [facility] ([facility]) [address] [place] [address] Erythrocyte distribution width (RBC) [Ratio] 13.5 % Normal 11.5-15.0 [facility] Comment on above: Performed By: #### L [id number] #### [facility] ([facility]) [address] [place] [address] ERYTHROCYTE MEAN CORPUSCULAR HEMOGLOBIN CONCENTRATION (G/DL) BY AUTOMATED 31.0 g/dL Low 32.0-35.0 [facility] Comment on above: Performed By: #### L [id number] #### [facility] ([facility]) [address] [place] [address] Hematocrit (Bld) [Volume fraction] 27.4 % Low 36.0-48.0 [facility] Comment on above: Performed By: #### L [id number] #### [facility] ([facility]) [address] [place] [address] Hemoglobin (Bld) [Mass/Vol] 8.5 g/dL Low 12.0-15.0 [facility] Comment on above: Performed By: #### L [id number] #### [facility] ([facility]) [address] [place] [address] Immature granulocytes (Bld) [#/Vol] 0.05 10*3/uL Normal 0.00-0.20 [facility] Comment on above: Performed By: #### L [id number] #### [facility] ([facility]) [address] [place] [address] Immature granulocytes/100 WBC (Bld) 0.8 % Normal 0.0-1.0 [facility] Comment on above: Performed By: #### L [id number] #### [facility] ([facility]) [address] [place] [address] Lymphocytes (Bld) [#/Vol] 0.83 10*3/uL Low 1.20-4.00 [facility] Comment on above: Performed By: #### L [id number] #### [facility]) [address] [place] [address] Lymphocytes/100 WBC (Bld) 13.0 % Low 20.0-45.0 [facility] Comment on above: Performed By: #### L [id number] #### [facility] ([facility]) [address] [place] [address] MCH (RBC) [Entitic mass] 30.7 pg Normal 27.0-33.0 [facility] Comment on above: Performed By: #### L [id number] #### [facility] [address] [place] [address] MCV (RBC) [Entitic vol] 98.9 fL High 82.0-98.0 [facility] Comment on above: Performed By: #### L [id number] #### [facility] ([facility]) [address] [place] [address] Monocytes (Bld) [#/Vol] 0.45 10*3/uL Normal 0.10-1.00 [facility] Comment on above: Performed By: #### L [id number] #### [facility] ([facility]) [address] [place] [address] Monocytes/100 WBC (Bld) 7.0 % Normal 5.0-12.0 [facility] Comment on above: Performed By: #### L [id number] #### [facility] ([facility]) [address] [place] [address] Neutrophils (Bld) [#/Vol] 4.97 10*3/uL Normal 1.60-7.60 [facility] Comment on above: Performed By: #### L [id number] #### [facility]) [address] [place] [address] Neutrophils/100 WBC (Bld) 77.8 % High 40.0-72.0 [facility] Comment on above: Performed By: #### L [id number] #### [facility] ([facility]) [address] [place] [address] NRBC (PER 100 WBCS) BY AUTOMATED COUNT 0.0 % Normal 0 [facility] Comment on above: Performed By: #### L [id number] #### [facility] ([facility]) [address] [place] [address] PLATELETS (10*3/UL) IN BLOOD AUTOMATED COUNT 245 10*3/uL Normal 150-400 [facility] Comment on above: Performed By: #### L [id number] #### [facility] ([facility]) [address] [place] [address] RBC (Bld) [#/Vol] 2.77 10*6/uL Low 3.80-5.00 [facility] Comment on above: Performed By: #### L [id number] #### [facility] ([facility]) [address] [place] [address] WBC (Bld) [#/Vol] 6.39 10*3/uL Normal 4.00-10.60 [facility] Comment on above: Performed By: #### L [id number] #### [facility] ([facility]) [address] [place] [address] FERRITINon 07-28-2023 FERRITIN (NG/ML) IN SER/PLAS 53.0 ng/mL Normal 11.0-307.0 [facility] Comment on above: Performed By: #### L [id number] #### [facility] ([facility]) [address] [place] [address] FOLATEon 07-28-2023 FOLATE (NG/ML) IN SER/PLAS 8.99 ng/mL Normal 6.6-1000 [facility] Comment on above: Performed By: #### L [id number] ####[facility] ([facility])[address] [place] [address] IRON AND TIBCon 07-28-2023 IRON (UG/DL) IN SER/PLAS 53 ug/dL Normal 50-212 [facility] Comment on above: Performed By: #### L [id number] #### [facility] ([facility]) [address] [place] [address] IRON BINDING CAPACITY (UG/DL) IN SER/PLAS 285 ug/dL Normal 250-450 [facility] Comment on above: Performed By: #### L [id number] #### [facility] ([facility]) [address] [place] [address] IRON BINDING CAPACITY.UNSATURATED (UG/DL) IN SER/PLAS 232.0 ug/dL Normal 155.0-355.0 [facility] Comment on above: Performed By: #### L [id number] #### [facility] ([facility]) [address] [address] IRON SATURATION (%) IN SER/PLAS 19 % Low 20-50 [facility] Comment on above: Performed By: #### L [id number] #### [facility] ([facility]) [address] [place] [address] MAGNESIUMon 07-28-2023 Magnesium [Mass/Vol] 1.6 mg/dL Low 1.9-2.7 [facility] Comment on above: Performed By: #### L [id number] #### [facility] [address] [place] [address] RETICULOCYTE PANELon 024 HEMOGLOBIN (PG) IN RETICULOCYTES 33.8 pg Normal 28.0-36.0 [facility] Comment on above: Performed By: #### L [id number] ####[facility] ([facility])[address] [place] [address] IMMATURE RETICULOCYTE FRACTION (%) 8.5 % Normal 2-16 [facility] Comment on above: Performed By: #### L [id number] ####[facility] ([facility])[address] [place] [address] RETICULOCYTES (10*6/UL) IN BLOOD 0.0535 10*6/uL Normal 0.0250-0.100 0 [facility] Comment on above: Performed By: #### L [id number] ####[facility] ([facility])[address] [place] [address] Reticulocytes/100 RBC (Bld) 1.96 % High 0.50-1.80 [facility] Comment on above: Performed By: #### L [id number] ####[facility] ([facility])[address] [place] [address] TROPONIN Ion 07-28-2023 Troponin I.cardiac [Mass/Vol] 0.01 ng/mL Normal 0.00-0.04 [facility] Comment on above: Performed By: #### L [id number] #### [facility] ([facility]) [address] [place] [address] URINALYSIS MICROSCOPIC WITH REFLEX CULTUREon 07-28-2023 CASTS IN URINE Normal [facility] Comment on above: Performed By: #### L [id number] #### [facility] ([facility]) [address] [place] [address] CRYSTALS IN URINE Normal [facility] Comment on above: Performed By: #### L [id number] #### [facility] ([facility]) [address] [place] [address] MUCUS (#/HPF) IN URINE SEDIMENT Occasional Normal None Seen, Occasional, Few [facility] Comment on above: Performed By: #### L [id number] #### [facility] ([facility]) [address] [place] [address] OTHER MICROSCOPIC ELEMENTS Normal [facility] Comment on above: Performed By: #### L [id number] #### [facility] ([facility]) [address] [place] [address] RBC (#/HPF) IN URINE SEDIMENT None Seen Normal None Seen [facility] Comment on above: Performed By: #### L [id number] #### [facility] ([facility]) [address] [place] [address] SQUAMOUS EPITHELIAL CELLS (#/HPF) IN URINE SEDIMENT Few Abnormal None Seen, Occasional [facility] Comment on above: Performed By: #### L [id number] #### [facility] ([facility]) [address] [place] [address] WBC (LEUKOCYTE) (#/HPF) IN URINE SEDIMENT 0-2 Abnormal None Seen [facility] Comment on above: Performed By: #### L [id number] #### [facility] ([facility]) [address] [place] [address] URINALYSIS WITH REFLEX CULTU REon 07-28-2023 BILIRUBIN, TOTAL PRESENCE IN URINE Negative Normal Negative [facility] Comment on above: Performed By: #### L [id number] ####[facility] ([facility])[address] [place] [address] Clarity (U) Clear Normal Clear [facility] Comment on above: Performed By: #### L [id number] ####[facility] ([facility])[address] [place] [address] Color (U) Straw Abnormal Yellow [facility] Comment on above: Performed By: #### L [id number] ####[facility] ([facility])[address] [place] [address] Glucose (U) [Mass/Vol] Negative Normal Negative [facility] Comment on above: Performed By: #### L [id number] ####[facility] ([facility])[address] [place] [address] HEMOGLOBIN PRESENCE IN URINE Small Abnormal Negative [facility] Comment on above: Performed By: #### L [id number] ####[facility] ([facility])[address] [place] [address] Ketones Ql (U) Negative Normal Negative [facility] Comment on above: Performed By: #### L [id number] ####[facility] ([facility])[address] [place] [address] LEUKOCYTE ESTERASE PRESENCE IN URINE BY TEST STRIP Negative Normal Negative [facility] Comment on above: Performed By: #### L [id number] ####[facility] ([facility])[address] [place] [address] NITRITE PRESENCE IN URINE Negative Normal Negative [facility] Comment on above: Performed By: #### L [id number] ####[facility] ([facility])[address] [place] [address] pH (U) 5.0 [pH] Normal 5.0-8.0 [facility] Comment on above: Performed By: #### L [id number] ####[facility] ([facility])[address] [place] [address] Protein (U) [Mass/Vol] Negative Normal [facility] Comment on above: Performed By: #### L [id number] ####[facility] [place] [address] Specific gravity (U) [Rel density] 1.011 Low 1.015-1.020 [facility] Comment on above: Performed By: #### L [id number] ####[facility] ([facility])[address] [place] [address] VENOUS BLOOD GAS WITH IONIZE D CALCIUMon 07-28-2023 Base excess Calc (BldV) [Moles/Vol] -7.1000 mmol/L Normal [facility] Comment on above: Performed By: #### L [id number] #### [facility] ([facility]) [address] [place] [address] CALCIUM IONIZED (MMOL/L) IN BLOOD 1.03 mmol/L Low 1.15-1.33 [facility] Comment on above: Performed By: #### L [id number] #### [facility] ([facility]) [address] [place] [address] CO2 (BldV) [Partial pressure] 41 mm[Hg] Normal 40-50 [facility] Comment on above: Performed By: #### L [id number] #### [facility] ([facility]) [address] [place] [address] HCO3 (Bld) [Moles/Vol] 19.3 mmol/L Normal [facility] Comment on above: Performed By: #### L [id number] #### [facility] ([facility]) [address] [place] [address] Oxygen (BldV) [Partial pressure] 42 mm[Hg] Normal 35-45 [facility] Comment on above: Performed By: #### L [id number] #### [facility] ([facility]) [address] [place] [address] OXYGEN SATURATION (%) IN VENOUS BLOOD 70.5 % Normal 65.0-75.0 [facility] Comment on above: Performed By: #### L [id number] #### [facility] ([facility]) [address] [place] [address] PH OF VENOUS BLOOD 7.28 Low 7.31-7.41 [facility] Comment on above: Performed By: #### L [id number] #### [facility] ([facility]) [address] [place] [address] Office Visiton 07-13-2023 Follow-up visit [id number] Loren Moser 1960 F Date Provider Department Center 07/13/2023 BENJIE LERMA YVONNE Chandler Family History Family history unknown: Yes Level of Service:39037 [place] OFFICE/OUTPATIENT ESTABLISHED LOW MDM 20 MIN Normal [facility] Absolute reticulocyte countO rdered By: Los Grissom on 07-03-2023 Reticulocytes (Bld) [#/Vol] 0.039 10*6/uL 0.024-0.084 [facility] Basic Metabolic Panelon Creatinine Clr Calc Pharmacy 25.88 [facility] Comment on above: Performed By: #### V [id number], MG, BMP, JOSE, FE and TIBC, RETIC #### [facility] [address] [place], [place] [address] GFR/1.73 sq M.predicted MDRD (S/P/Bld) [Vol rate/Area] 23.348 mL/min/{1.73_m2} [facility] Comment on above: Performed By: #### V [id number], MG, BMP, JOSE, FE and TIBC, RETIC #### [address] Calcium [Mass/volume] in Ser um or PlasmaOrdered By: Jim Randhawa on 07-03-2023 Calcium [Mass/Vol] 8.3 mg/dL Low 8.6-10.3 [facility] Comment on above: Performed By: #### V [id number], MG, BMP, JOSE, FE and TIBC, RETIC #### [address] Carbon dioxide, total [Moles /volume] in Serum or PlasmaOrdered By: Jim Randhawa on 07-03-2023 CO2 [Moles/Vol] 20.4 mmol/L Low 21.0-31.0 [facility] Comment on above: Performed By: #### V [id number], MG, BMP, JOSE, FE and TIBC, RETIC #### [place] [address] [place] Chloride [Moles/volume] in S andrea or PlasmaOrdered By: Jim Randhawa on 07-03-2023 Chloride [Moles/Vol] 106 mmol/L Normal 98-[address] [facility] Comment on above: Performed By: #### V [id number], MG, BMP, JOSE, FE and TIBC, RETIC #### [address] Creatinine [Mass/volume] in Serum or PlasmaOrdered By: Jim Randhawa on 07-03-2023 Creatinine [Mass/Vol] 2.32 mg/dL High 0.60-1.20 [facility] Comment on above: Performed By: #### V [id number], MG, BMP, JOSE, FE and TIBC, RETIC #### [address] ECH echo transthoracicon ECH echo transthoracic [facility] [place] [address] [place] [address] Echocardiogram Signed Patient: Mabel Moser MR#: [id number] : 1960 Acct:[id number] Age/Sex: 63 / F ADM Date: 06/29/23 Loc: 3T Room: [address] [place] [address] Type: DIS IN Attending Dr: Jim Randhawa DO Ordering Provider: Jim Randhawa DO Date of Service: 07/02/2301/16/859 ECH/ECH echo transthoracic: swelling Copies to: MD Jim Meyer DO Weight: 189 lb Performed By: Judah Pinto [facility] BSA: 1.9 m2 BP: 112/75 mmHg HR: [...] FS: 40.8 % Ao root area: 7.8 [id number] ap4: 8.4 cm TAPSE: 2.6 cm EDV(Teich): [...] By: Benjie Leach MD 07/03/23 1445 Normal [facility] Ferritin [Mass/volume] in Se rum or PlasmaOrdered By: Los Grissom on 07-03-2023 Ferritin [Mass/Vol] 71.9 ng/mL Normal 11.0-306.8 [facility] Comment on above: Performed By: #### V [id number], MG, BMP, JOSE, FE and TIBC, RETIC #### [address] Folate [Mass/volume] in Seru m or PlasmaOrdered By: Los Grissom on 07-03-2023 Folate [Mass/Vol] 11.1 ng/mL >5.9 [facility] Comment on above: Folate reference ran ge: >5.9 ng/mlThe WHO technical consultation on folate and vitamin [id number] has determined that folate concentrations lessthan 4 ng/ml are considered deficient. Glucose [Mass/volume] in Ser um or PlasmaOrdered By: Jim Randhawa on 07-03-2023 Glucose [Mass/Vol] 99 mg/dL Normal 70-100 [facility] Comment on above: ADA recommended refe rence rangeRandom Glucose Reference Range is dependent on time and content of last meal. Glucose of more than 200 mg/dL in a nonstressed, ambulatory subject supports the diagnosis of Diabetes Mellitus. Result Comment: [place] om Glucose Reference Range is dependent on time and content of last meal. Glucose of more than 200 mg/dL in a nonstressed, ambulatory subject supports the diagnosis of Diabetes Mellitus. ADA recommended reference range Performed By: #### V [id number], MG, BMP, JOSE, FE and TIBC, RETIC #### [facility] [address] Iron [Mass/volume] in Serum or PlasmaOrdered By: Los Grissom on 07-03-2023 Iron [Mass/Vol] 59 ug/dL Normal 50-212 [facility] Comment on above: Performed By: #### V [id number], MG, BMP, JOSE, FE and TIBC, RETIC #### [facility] [address] Iron and TIBC Profileon % Iron Saturation 22.8 % Normal 20-50 [facility] Comment on above: Performed By: #### V [id number], MG, BMP, JOSE, FE and TIBC, RETIC #### [address] Total Iron Binding Capacity 259 ug/dL Normal 255-450 [facility] Comment on above: Performed By: #### V [id number], MG, BMP, JOSE, FE and TIBC, RETIC #### [address] Iron binding capacity [Mass/ volume] in Serum or PlasmaOrdered By: Los Grissom on 07-03-2023 Iron binding capacity [Mass/Vol] 259 ug/dL 255-450 [facility] Iron saturation [Mass Fracti on] in Serum or PlasmaOrdered By: Los Grissom on 07-03-2023 Iron saturation [Mass fraction] 22.8 % 20-50 [facility] Magnesium [Mass/volume] in S andrea or PlasmaOrdered By: Jim Randhawa on 07-03-2023 Magnesium [Mass/Vol] 2.0 mg/dL Normal 1.9-2.[address] [facility] Comment on above: Performed By: #### V [id number], MG, BMP, JOSE, FE and TIBC, RETIC #### [facility] [address] [place] [address] No Panel InformationOrdered By: Jim Randhawa on 07-03-2023 Estimated GFR (CKD-EPI) 23.348 mL/Min [facility] Creatinine Clearance (Chem 25.88 [facility] Potassium [Moles/volume] in Serum or PlasmaOrdered By: Jim Randhawa on 07-03-2023 Potassium [Moles/Vol] 3.9 mmol/L Normal 3.5-5.1 [facility] Comment on above: Performed By: #### V [id number], MG, BMP, JOSE, FE and TIBC, RETIC #### [facility] [address] Reticulocyte Counton 024 Reticulocyte Number 0.039 10*6/uL Normal 0.024-0.[address] [facility] Comment on above: Result Comment: PERF ORMED BY: [place] [address] PATHOLOGIST BEHAVIORAL HEALTH CONSULTANT TANNER GAVIN M.D. Performed By: #### V [id number], MG, BMP, JOSE, FE and TIBC, RETIC #### [address] Reticulocyte Percent 1.5 % Normal 0.5-1.[address] [facility] Comment on above: Performed By: #### V [id number], MG, BMP, JOSE, FE and TIBC, RETIC #### [place] [address] [place] Reticulocytes/100 RBC Auto ( Bld)Ordered By: Los Grissom on 07-03-2023 Reticulocytes/100 RBC (Bld) 1.5 % 0.5-1.5 [facility] Serum or plasma anion gap de terminationOrdered By: Jim Randhawa on 07-03-2023 Anion gap [Moles/Vol] 11.5 mmol/L Normal 6.0-15.0 [facility] Comment on above: Performed By: #### V [id number], MG, BMP, JOSE, FE and TIBC, RETIC #### [place] [address] [place] Sodium [Moles/volume] in Ser um or PlasmaOrdered By: Jim Randhawa on 07-03-2023 Sodium [Moles/Vol] 134 mmol/L Low 136-145 [facility] Comment on above: Performed By: #### V [id number], MG, BMP, JOSE, FE and TIBC, RETIC #### [facility] [address] [place] [address] Transferrin [Mass/volume] in Serum or PlasmaOrdered By: Los Grissom on 07-03-2023 Transferrin [Mass/Vol] 185 mg/dL Low 203-362 [facility] Comment on above: Performed By: #### V [id number], MG, BMP, JOSE, FE and TIBC, RETIC #### [address] Urea nitrogen [Mass/volume] in Serum or PlasmaOrdered By: Jim Randhawa on 07-03-2023 Urea nitrogen [Mass/Vol] 95 mg/dL High 7-25 [facility] Comment on above: Performed By: #### V [id number], MG, BMP, JOSE, FE and TIBC, RETIC #### [facility] [address] [place] [address] Vit. B12/Folate Profileon Folate 11.1 ng/mL Normal >5.9 [facility] Comment on above: Result Comment: Sandra te reference range: >5.9 ng/ml The WHO technical consultation on folate and vitamin b12 deficiencies has determined that folate concentrations less than 4 ng/ml are considered deficient. PERFORMED BY: [place] [address] PATHOLOGIST BEHAVIORAL HEALTH CONSULTANT TANNER GAVIN M.D. Performed By: #### V [id number], MG, BMP, JOSE, FE and TIBC, RETIC #### [facility] [address] [place] [address] Vitamin B12 ser/plasOrdered By: Los Grissom on 07-03-2023 Cobalamin (Vitamin B12) [Mass/Vol] 3564 pg/mL High 180-914 [facility] Comment on above: Performed By: #### V [id number], MG, BMP, JOSE, FE and TIBC, RETIC #### [facility] [address] [place] [address] Basic Metabolic Panelon Anion gap [Moles/Vol] 11.0 mmol/L Normal 6.0-15.0 [facility] Comment on above: Performed By: #### V [id number], MG, BMP, JOSE, FE and TIBC, RETIC #### [address] Calcium [Mass/Vol] 8.4 mg/dL Low 8.6-10.3 [facility] Comment on above: Performed By: #### V [id number], MG, BMP, JOSE, FE and TIBC, RETIC #### [address] Chloride [Moles/Vol] 104 mmol/L Normal 98-[address] [facility] Comment on above: Performed By: #### V [id number], MG, BMP, JOSE, FE and TIBC, RETIC #### [address] CO2 [Moles/Vol] 20.2 mmol/L Low 21.0-31.0 [facility] Comment on above: Performed By: #### V [id number], MG, BMP, JOSE, FE and TIBC, RETIC #### [facility] [address] [place] [address] Creatinine [Mass/Vol] 2.31 mg/dL High 0.60-1.20 [facility] Comment on above: Performed By: #### V [id number], MG, BMP, JOSE, FE and TIBC, RETIC #### [facility] [address] [place] [address] Creatinine Clr Calc Pharmacy 26.22 [facility] Comment on above: Performed By: #### V [id number], MG, BMP, JOSE, FE and TIBC, RETIC #### [facility] [address] [place] [address] [place] GFR/1.73 sq M.predicted MDRD (S/P/Bld) [Vol rate/Area] 23.469 mL/min/{1.73_m2} Normal [facility] Comment on above: Performed By: #### V [id number], MG, BMP, JOSE, FE and TIBC, RETIC #### [facility] [address] Glucose [Mass/Vol] 89 mg/dL Normal 70-100 [facility] Comment on above: Result Comment: [facility][note 3] Glucose Reference Range is dependent on time and content of last meal. Glucose of more than 200 mg/dL in a nonstressed, ambulatory subject supports the diagnosis of Diabetes Mellitus. ADA recommended reference range Performed By: #### V [id number], MG, BMP, JOSE, FE and TIBC, RETIC #### [facility] [address] Potassium [Moles/Vol] 4.2 mmol/L Normal 3.5-5.1 [facility] Comment on above: Performed By: #### V [id number], MG, BMP, JOSE, FE and TIBC, RETIC #### [facility] [address] Sodium [Moles/Vol] 131 mmol/L Low 136-145 [facility] Comment on above: Performed By: #### V [id number], MG, BMP, JOSE, FE and TIBC, RETIC #### [facility] [address] [place] [address] Urea nitrogen [Mass/Vol] 100 mg/dL High 7-25 [facility] Comment on above: Performed By: #### V [id number], MG, BMP, JOSE, FE and TIBC, RETIC #### [facility] [address] Erythrocyte distribution wid th Auto (RBC) [Ratio]Ordered By: Jim Randhawa on 07-02-2023 Erythrocyte distribution width (RBC) [Ratio] 14.2 % 11.9-15.3 [facility] Hematocrit Auto (Bld) [Volum e fraction]Ordered By: Jim Randhawa on 07-02-2023 Hematocrit (Bld) [Volume fraction] 25.0 % 34.0-46.4 [facility] Hemoglobin [Mass/volume] in BloodOrdered By: Jim Randhawa on 07-02-2023 Hemoglobin (Bld) [Mass/Vol] 8.4 g/dL 11.8-15.4 [facility] Hemogram CBC Without Diffon 07-02-2023 Erythrocyte distribution width (RBC) [Ratio] 14.2 % Normal 11.9-15.3 [facility] Comment on above: Performed By: #### V [id number], MG, BMP, JOSE, FE and TIBC, RETIC #### [address] Hematocrit (Bld) [Volume fraction] 25.0 % Low 34.0-46.4 [facility] Comment on above: Performed By: #### V [id number], MG, BMP, JOSE, FE and TIBC, RETIC #### [address] Hemoglobin (Bld) [Mass/Vol] 8.4 g/dL Low 11.8-15.4 [facility] Comment on above: Performed By: #### V [id number], MG, BMP, JOSE, FE and TIBC, RETIC #### [address] MCH (RBC) [Entitic mass] 32.3 pg Normal 24.7-34.3 [facility] Comment on above: Performed By: #### V [id number], MG, BMP, JOSE, FE and TIBC, RETIC #### [address] MCV (RBC) [Entitic vol] 96.6 fL Normal 80-100 [facility] Comment on above: Performed By: #### V [id number], MG, BMP, JOSE, FE and TIBC, RETIC #### [address] Mean Corpuscular HGB Conc 33.4 g/dL Normal 32.0-35.0 [facility] Comment on above: Performed By: #### V [id number], MG, BMP, JOSE, FE and TIBC, RETIC #### [address] Platelet mean volume (Bld) [Entitic vol] 7.7 fL Normal 6.3-10.7 [facility] Comment on above: Result Comment: PERF ORMED BY: [place] [address] PATHOLOGIST BEHAVIORAL HEALTH CONSULTANT TANNER GAVIN M.D. Performed By: #### V [id number], MG, BMP, JOSE, FE and TIBC, RETIC #### [address] Platelets (Bld) [#/Vol] 217 10*3/uL Normal 150-450 [facility] Comment on above: Performed By: #### V [id number], MG, BMP, JOSE, FE and TIBC, RETIC #### [address] RBC (Bld) [#/Vol] 2.59 10*6/uL Low 3.60-5.00 [facility] Comment on above: Performed By: #### V [id number], MG, BMP, JOSE, FE and TIBC, RETIC #### [address] WBC (Bld) [#/Vol] 6.1 10*3/uL Normal 3.8-11.6 [facility] Comment on above: Performed By: #### V [id number], MG, BMP, JOSE, FE and TIBC, RETIC #### [address] Leukocytes [#/volume] correc nicol for nucleated erythrocytes in Blood by Automated counOrdered By: Jim Randhawa on 07-02-2023 WBC corrected for nucl RBC Auto (Bld) [#/Vol] 6.1 10*3/uL 3.8-11.6 [facility] MCH Auto (RBC) [Entitic mass ]Ordered By: Jim Randhawa on 07-02-2023 MCH (RBC) [Entitic mass] 32.3 pg 24.7-34.3 [facility] MCHC Auto (RBC) [Mass/Vol]Or dered By: Jim Randhawa on 07-02-2023 MCHC (RBC) [Mass/Vol] 33.4 g/dL 32.0-35.0 [facility] MCV Auto (RBC) [Entitic vol] Ordered By: Jim Randhawa on 07-02-2023 MCV (RBC) [Entitic vol] 96.6 fL 80-100 [facility] Magnesiumon 07-02-2023 Magnesium [Mass/Vol] 2.1 mg/dL Normal 1.9-2.[address] [facility] Comment on above: Result Comment: PERF ORMED BY: [facility] [address] [place] [address] PATHOLOGIST BEHAVIORAL HEALTH CONSULTANT TANNER GAVIN M.D. Performed By: #### V [id number], MG, BMP, JOSE, FE and TIBC, RETIC #### [facility] [address] Platelet mean volume Auto (B ld) [Entitic vol]Ordered By: Jim Randhawa on 07-02-2023 Platelet mean volume (Bld) [Entitic vol] 7.7 fL 6.3-10.7 [facility] Platelets Auto (Bld) [#/Vol] Ordered By: Jim Randhawa on 07-02-2023 Platelets (Bld) [#/Vol] 217 10*3/uL 150-450 [facility] RBC Auto (Bld) [#/Vol]Ordere d By: Jim Randhawa on 07-02-2023 RBC (Bld) [#/Vol] 2.59 10*6/uL 3.60-5.00 [facility] Basic Metabolic Panelon Anion gap [Moles/Vol] 11.9 mmol/L Normal 6.0-15.0 [facility] Comment on above: Order Comment: LINE DRAW Performed By: #### V [id number], MG, BMP, JOSE, FE and TIBC, RETIC #### [facility] [address] [place] [address] Calcium [Mass/Vol] 8.9 mg/dL Normal 8.6-10.3 [facility] Comment on above: Order Comment: LINE DRAW Performed By: #### V [id number], MG, BMP, JOSE, FE and TIBC, RETIC #### [address] Chloride [Moles/Vol] 108 mmol/L High 98-[address] [facility] Comment on above: Order Comment: LINE DRAW Performed By: #### V [id number], MG, BMP, JOSE, FE and TIBC, RETIC #### [address] CO2 [Moles/Vol] 18.5 mmol/L Low 21.0-31.0 [facility] Comment on above: Order Comment: LINE DRAW Performed By: #### V [id number], MG, BMP, JOSE, FE and TIBC, RETIC #### [address] Creatinine [Mass/Vol] 2.63 mg/dL Significan t change up 0.60-1.20 [facility] Comment on above: Order Comment: LINE DRAW Performed By: #### V [id number], MG, BMP, JOSE, FE and TIBC, RETIC #### [address] Creatinine Clr Calc Pharmacy 23.09 [facility] Comment on above: Order Comment: LINE DRAW Performed By: #### V [id number], MG, BMP, JOSE, FE and TIBC, RETIC #### [address] GFR/1.73 sq M.predicted MDRD (S/P/Bld) [Vol rate/Area] 20.085 mL/min/{1.73_m2} [facility] Comment on above: Order Comment: LINE DRAW Performed By: #### V [id number], MG, BMP, JOSE, FE and TIBC, RETIC #### [facility] [address] Glucose [Mass/Vol] 128 mg/dL High 70-100 [facility] Comment on above: Order Comment: LINE DRAW Result Comment: [place] Glucose Reference Range is dependent on time and content of last meal. Glucose of more than 200 mg/dL in a nonstressed, ambulatory subject supports the diagnosis of Diabetes Mellitus. ADA recommended reference range Performed By: #### V [id number], MG, BMP, JOSE, FE and TIBC, RETIC #### [facility] [address] Potassium [Moles/Vol] 4.4 mmol/L Normal 3.5-5.1 [facility] Comment on above: Order Comment: LINE DRAW Performed By: #### V [id number], MG, BMP, JOSE, FE and TIBC, RETIC #### [facility] [address] Sodium [Moles/Vol] 134 mmol/L Low 136-145 [facility] Comment on above: Order Comment: LINE DRAW Performed By: #### V [id number], MG, BMP, JOSE, FE and TIBC, RETIC #### [facility] [address] Urea nitrogen [Mass/Vol] 104 mg/dL High 7-25 [facility] Comment on above: Order Comment: LINE DRAW Performed By: #### V [id number], MG, BMP, JOSE, FE and TIBC, RETIC #### [facility] [address] Magnesiumon 07-01-2023 Magnesium [Mass/Vol] 2.3 mg/dL Normal 1.9-2.[address] [facility] Comment on above: Order Comment: LINE DRAW Result Comment: PERF ORMED BY: [place] [address] PATHOLOGIST BEHAVIORAL HEALTH CONSULTANT TANNER GAVIN M.D. Performed By: #### V [id number], MG, BMP, JOSE, FE and TIBC, RETIC #### [facility] [address] Basic Metabolic Panelon 0 Anion gap [Moles/Vol] 14.6 mmol/L Normal 6.0-15.0 [facility] Comment on above: Performed By: #### V [id number], MG, BMP, JOSE, FE and TIBC, RETIC #### [address] Calcium [Mass/Vol] 8.6 mg/dL Normal 8.6-10.3 [facility] Comment on above: Performed By: #### V [id number], MG, BMP, JOSE, FE and TIBC, RETIC #### [address] Chloride [Moles/Vol] 109 mmol/L High 98-[address] [facility] Comment on above: Performed By: #### V [id number], MG, BMP, JOSE, FE and TIBC, RETIC #### [address] CO2 [Moles/Vol] 15.0 mmol/L Low 21.0-31.0 [facility] Comment on above: Performed By: #### V [id number], MG, BMP, JOSE, FE and TIBC, RETIC #### [facility] [address] [place] [address] Creatinine [Mass/Vol] 3.16 mg/dL High 0.60-1.20 [facility] Comment on above: Performed By: #### V [id number], MG, BMP, JOSE, FE and TIBC, RETIC #### [facility] [address] [place] [address] Creatinine Clr Calc Pharmacy 19.26 [facility] Comment on above: Performed By: #### V [id number], MG, BMP, JOSE, FE and TIBC, RETIC #### [facility] [address] [place] [address] [place] GFR/1.73 sq M.predicted MDRD (S/P/Bld) [Vol rate/Area] 16.114 mL/min/{1.73_m2} Normal [facility] Comment on above: Performed By: #### V [id number], MG, BMP, JOSE, FE and TIBC, RETIC #### [facility] [address] Glucose [Mass/Vol] 79 mg/dL Normal 70-100 [facility] Comment on above: Result Comment: [facility][note 3] Glucose Reference Range is dependent on time and content of last meal. Glucose of more than 200 mg/dL in a nonstressed, ambulatory subject supports the diagnosis of Diabetes Mellitus. ADA recommended reference range Performed By: #### V [id number], MG, BMP, JOSE, FE and TIBC, RETIC #### [address] Potassium [Moles/Vol] 4.6 mmol/L Normal 3.5-5.1 [facility] Comment on above: Performed By: #### V [id number], MG, BMP, JOSE, FE and TIBC, RETIC #### [address] Sodium [Moles/Vol] 134 mmol/L Low 136-145 [facility] Comment on above: Performed By: #### V [id number], MG, BMP, JOSE, FE and TIBC, RETIC #### [facility] [address] [place] [address] [place] Urea nitrogen [Mass/Vol] 117 mg/dL High 7-25 [facility] Comment on above: Performed By: #### V [id number], MG, BMP, JOSE, FE and TIBC, RETIC #### [address] Magnesiumon 06-30-2023 Magnesium [Mass/Vol] 2.5 mg/dL Normal 1.9-2.[address] [facility] Comment on above: Result Comment: PERF ORMED BY: [place] [address] PATHOLOGIST BEHAVIORAL HEALTH CONSULTANT TANNER GAVIN M.D. Performed By: #### V [id number], MG, BMP, JOSE, FE and TIBC, RETIC #### [facility] [address] [place] [id number] [facility] 36on 04-10-2023 36 Patient states she n eeds to cancel her surgery due to her son being on the transplant list, states she would like to reschedule. Normal [facility] Orders Onlyon 04-05-2023 Orders Only [id number] Loren Moser A 1960 F Date Provider Department Center 04/05/2023 [facility] Family History Family history unknown: Yes Normal [facility] Office Visiton 02-22-2023 Follow-up visit [id number] Loren Moser marii A 1960 Date Provider Department Center 02/22/2023 [facility] Family History Family history unknown: Yes Level of Service:34077 [place] OFFICE/OUTPATIENT ESTABLISHED MOD MDM 30-39 MIN Normal [facility] Follow-Upon 02-16-2023 Follow-Up [id number] Loren Moser A 1960 Provider Department Center 02/16/2023 [facility] Family History Family history unknown: Yes Level of Service:55448 [place] OFFICE/OUTPATIENT ESTABLISHED LOW MDM 20-29 MIN Reason for Visit and Comments: Pain [136] Normal [facility] 36on 02-08-2023 36 Called patient to in form her she needs the CT done before her follow up w/ francisco. The appt has been cancelled and needs rescheduled. Normal [facility] CBC AUTO DIFFon 11-22-2022 BASO # 0.0 103/ul Normal 0.0-0.1 [facility] Comment on above: Performed By: #### C BC ####[facility] [id number] [place] [address]Dr[place]na Tripathi Basophils/100 WBC (Bld) 0.6 % Normal 0.2-2.0 [facility] Comment on above: Performed By: #### C BC ####[facility] Hohvbcqojs4[address] [place] [address]Dr. Airam Tripathi EO # 0.1 103/ul Normal 0.0-0.7 [facility] Comment on above: Performed By: #### C BC ####[facility] Eodivhzcrt7[address] [place] [address]Dr. Airam Tripathi Eosinophils/100 WBC (Bld) 1.7 % Normal 0.9-7.0 [facility] Comment on above: Performed By: #### C BC ####[facility] Huwgquccen[address] [place], [place] [address]Dr. Selenaneil Tripathi Erythrocyte distribution width (RBC) [Ratio] 15.2 % Critically high 11.0-15.0 [facility] Comment on above: Performed By: #### C BC ####[facility] Xfoychghwi[address] [place], [place] [address]DrKianna Selenaneil Tripathi Hematocrit (Bld) [Volume fraction] 31.6 % Critically low 36.0-48.0 [facility] Comment on above: Performed By: #### C BC ####[facility] [address]qkrztozds[address] [place], [place] [address]Dr. Airam Tripathi Hemoglobin (Bld) [Mass/Vol] 9.9 g/dL Critically low 12.0-16.0 [facility] Comment on above: Performed By: #### C BC ####[facility] [address]fwdh[address] [place], [place] [address]Dr. Selenaneil Tripathi IG # 0.02 10e3/ul Normal 0.00-0.03 [facility] Comment on above: Performed By: #### C BC ####[facility] Avpnjwwgtv[address] [place], [place] [address]Dr. Selenaneil Tripathi IG % 0.4 % Normal 0.0-0.5 [facility] Comment on above: Performed By: #### C BC ####[facility] Oswqsgdbyx[address] [place], [place] [address]DrKianna Tripathi LYMPH # 0.8 103/ul Critically low 1.2-3.8 [facility] Comment on above: Performed By: #### C BC ####[facility] Txsfywwnhl43[address] [place] [address]Dr. Airam Tripathi Lymphocytes/100 WBC (Bld) 16.9 % Critically low 20.5-60.0 [facility] Comment on above: Performed By: #### C BC ####[facility] Taxemvbrxa[address] [place] [address]Dr. Airam Tripathi MANUAL DIFF REQ NO Normal [facility] Comment on above: Performed By: #### C BC ####[facility] Gawxbbeoga[address] [place] [address]Dr. Airam Tripathi MCH (RBC) [Entitic mass] 28.4 pg Normal 26.7-34.0 [facility] Comment on above: Performed By: #### C BC ####[facility] Ikaknkuxyj[address] [place], [place] [address]Dr. Airam Tripathi MCHC (RBC) [Mass/Vol] 31.3 g/dL Normal 29.9-35.2 [facility] Comment on above: Performed By: #### C BC ####[facility] Sfxaiogynp[address] [place], [place] [address]Dr. Airam Tripathi MCV (RBC) [Entitic vol] 90.8 fL Normal 81.0-99.0 [facility] Comment on above: Performed By: #### C BC ####[facility] Msphknbldx[address] [place], [place] [address]Dr. Airam Tripathi MONO # 0.4 103/ul Normal 0.3-0.8 [facility] Comment on above: Performed By: #### C BC ####[facility] Clgjqsjjgz4[address] [place], [place] [address]Dr. Airam Tripathi Monocytes/100 WBC (Bld) 8.9 % Normal 1.7-12.0 [facility] Comment on above: Performed By: #### C BC ####[facility] Myanqhijrw360[address] [place], [place] [address]DrKianna Tripathi NEUT # 3.4 103/ul Normal 1.4-6.5 [facility] Comment on above: Performed By: #### C BC ####[facility] Wojqhlghri[address] [place] [address]Dr. Airam Tripathi Neutrophils/100 WBC (Bld) 71.5 % Normal 43.0-75.0 [facility] Comment on above: Performed By: #### C BC ####[facility] Eifhndofmn0995 [place] [address]Dr. Airam Tripathi Platelet mean volume (Bld) [Entitic vol] 9.4 fL Critically low 9.5-13.5 [facility] Comment on above: Performed By: #### C BC ####[facility] Txkmoblfki4537 [place] [address]Dr. Airam Tripathi PLT 302 103/ul Normal 150-450 [facility] Comment on above: Performed By: #### C BC ####[facility] Sgqmdriias7225 [place] [address]Dr. Airam Tripathi RBC 3.48 106/ul Critically low 4.20-5.40 [facility] Comment on above: Performed By: #### C BC ####[facility] Ndyiqvoqiu[address] [place], [place] [address]Dr. Airam Tripathi WBC 4.7 103/ul Normal 4.0-11.0 [facility] Comment on above: Performed By: #### C BC ####[facility] Wphzauvazz1353 [place] [address]DrKianna Tripathi PROF 14(COMP METB)on 023 Albumin [Mass/Vol] 3.4 g/dL Normal 3.4-5.0 [facility] Comment on above: Performed By: #### C MP ####[facility] Xyjbssxamo[address] [place], [place] [address]DrKianna Tripathi Albumin/Globulin [Mass ratio] 1.0 {ratio} Normal [facility] Comment on above: Performed By: #### C MP ####[facility] Eveqlzbtml24[address] [place] [id number] Tripathi ALP [Catalytic activity/Vol] 123 U/L Critically high 46-116 [facility] Comment on above: Performed By: #### C MP ####[facility] Urtzauvvnj4436 [place] [id number]. Airam Tripathi ALT [Catalytic activity/Vol] 24 U/L Normal 14-59 [facility] Comment on above: Performed By: #### C MP ####[facility] Rlndolndsl6187 [place] [address]Dr. Airam Tripathi Anion gap [Moles/Vol] 12.1 mmol/L Normal [facility] Comment on above: Performed By: #### C MP ####[facility] Hrslxpwtyo1370 [place] [id number]. Airam Tripathi AST [Catalytic activity/Vol] 30 U/L Normal 15-37 [facility] Comment on above: Performed By: #### C MP ####[facility] Gqtdpcdfjr1684 [place] [address]Dr. Airam Deuce Bilirubin [Mass/Vol] 0.4 mg/dL Normal 0.2-1.0 [facility] Comment on above: Performed By: #### C MP ####[facility] Jwutmuxrxm3498 [place] [address]Dr. Airam Deuce Calcium [Mass/Vol] 8.9 mg/dL Normal 8.5-10.1 [facility] Comment on above: Performed By: #### C MP ####[facility] Maguoumnst7346 [place] [id number]. Airam Deuce Chloride [Moles/Vol] 95 mmol/L Critically low 98-107 [facility] Comment on above: Performed By: #### C MP ####[facility] Sszljkelpd3514 [place] [id number]. Airam Tripathi CO2 [Moles/Vol] 28.7 mmol/L Normal 21.0-32.0 [facility] Comment on above: Performed By: #### C MP ####[facility] Tplxbmapfo1553 [place] [id number]. Airam Deuce Creatinine [Mass/Vol] 1.25 mg/dL Critically high 0.55-1.02 [facility] Comment on above: Performed By: #### C MP ####[facility] Gdootcsocx6951 [place] [id number]. Airam Tripathi EGFR-AF LATVIAN 53 mL/min/1.73m2 Critically low >=60 [facility] Comment on above: Performed By: #### C MP ####[facility] Epvjdhsyxl3059 [place] [address]Dr. Airam Tripathi EGFR-NON AF LATVIAN 44 mL/min/1.73m2 Critically low >=60 [facility] Comment on above: Performed By: #### C MP ####[facility] Jjeaieougv6998 [place] [address]Dr. Airam Deuce Globulin (S) [Mass/Vol] 3.5 g/dL Normal [facility] Comment on above: Performed By: #### C MP ####[facility] Nphpdzgvou3757 [place] [address]Dr. Airam Deuce Glucose [Mass/Vol] 89 mg/dL Normal 74-106 [facility] Comment on above: Performed By: #### C MP ####[facility] Xtdffqjrjy6761 [place] [address]Dr. Airam Deuce Potassium [Moles/Vol] 4.8 mmol/L Normal 3.5-5.1 [facility] Comment on above: Performed By: #### C MP ####[facility] Tiyuyktgtr6344 [place] [address]Dr. Airam Deuce Protein [Mass/Vol] 6.9 g/dL Normal 6.4-8.2 [facility] Comment on above: Performed By: #### C MP ####[facility] Tbjsckmbsr0220 [place] [address]Dr. Airam Tripathi Sodium [Moles/Vol] 131 mmol/L Critically low 136-145 [facility] Comment on above: Performed By: #### C MP ####[facility] Txbbqlygjh0363 [place] [id number]. Selenaneil Deuce Urea nitrogen [Mass/Vol] 37.0 mg/dL Critically high 7.0-18.0 [facility] Comment on above: Performed By: #### C MP ####[facility] Qnporgprhu4[address] [place], [place] [address]Dr. Airam Tripathi Urea nitrogen/Creatinine [Mass ratio] 29.6 mg/mg Normal [facility] Comment on above: Performed By: #### C MP ####[facility] Zfbulidnhc[address] [place], [place] [address]Dr. Airam Tripathi OSMOLALITYon 11-18-2022 Osmolality [Osmolality] 293 mosm/kg Normal 275-295 [facility] Comment on above: Performed By: #### O SMO ####[facility] Jkubkfyeud[address] [place], [place] [address]Dr. Airam Tripathi BNPon 11-16-2022 Natriuretic peptide B (Bld) [Mass/Vol] 1142.0 pg/mL Critically high <=900.0 [facility] Comment on above: Performed By: #### B FEATHER MAKER ####[facility] Fgfrzljywl[address] [place], [place] [address]Dr. Airam Tripathi CBC AUTO DIFFon 11-16-2022 BASO # 0.0 103/ul Normal 0.0-0.1 [facility] Comment on above: Performed By: #### C BC ####[facility] Inbgkdecjd[address] [place], [place] [address]Dr. Airam Deuce Basophils/100 WBC (Bld) 0.3 % Normal 0.2-2.0 [facility] Comment on above: Performed By: #### C BC ####[facility] Xhjiqdhlbi[address] [place], [place] [address]Dr. Airam Tripathi EO # 0.3 103/ul Normal 0.0-0.7 [facility] Comment on above: Performed By: #### C BC ####[facility] Tvxmofjgpl63[address] [place], [place] [address]DrKianna Airam Deuce Eosinophils/100 WBC (Bld) 4.6 % Normal 0.9-7.0 [facility] Comment on above: Performed By: #### C BC ####[facility] Qeszrygocm123[address] [place], [place] [address]Dr. Airam Tripathi Erythrocyte distribution width (RBC) [Ratio] 16.1 % Critically high 11.0-15.0 [facility] Comment on above: Performed By: #### C BC ####[facility] Larjomrkdz5736 [place] [address]Dr. Airam Tripathi Hematocrit (Bld) [Volume fraction] 28.0 % Critically low 36.0-48.0 [facility] Comment on above: Performed By: #### C BC ####[facility] Jsxrgtsfoz0798 [place] [address]Dr. Airam Tripathi Hemoglobin (Bld) [Mass/Vol] 8.9 g/dL Critically low 12.0-16.0 [facility] Comment on above: Performed By: #### C BC ####[facility] Etexiveeiz[address]39[address] [place], [place] [address]Dr. Airam Deuce IG # 0.02 10e3/ul Normal 0.00-0.03 [facility] Comment on above: Performed By: #### C BC ####[facility] Iynoislram[address] [place], [place] [address]Dr. Airam Tripathi IG % 0.3 % Normal 0.0-0.5 [facility] Comment on above: Performed By: #### C BC ####[facility] Yxlirqopkp32[address] [place], [place] [address]Dr. Airam Deuce LYMPH # 1.5 103/ul Normal 1.2-3.8 [facility] Comment on above: Performed By: #### C BC ####[facility] Funrsxcnzy8201[address] [place], [place] [address]Dr. Airam Deuce Lymphocytes/100 WBC (Bld) 24.2 % Normal 20.5-60.0 [facility] Comment on above: Performed By: #### C BC ####[facility] Wymtungdoe454[address] [place], [place] [address]Dr. Selenaneil Tripathi MANUAL DIFF REQ NO Normal [facility] Comment on above: Performed By: #### C BC ####[facility] Uhalixfrpc669[address] [place], [place] [address]Dr. Airam Tripathi MCH (RBC) [Entitic mass] 29.3 pg Normal 26.7-34.0 [facility] Comment on above: Performed By: #### C BC ####[facility] Thellychht47[address] [place] [address]Dr. Airam Tripathi MCHC (RBC) [Mass/Vol] 31.8 g/dL Normal 29.9-35.2 [facility] Comment on above: Performed By: #### C BC ####[facility] Cmteffzral64[address] [place], [place] [address]Dr. Airam Deuce MCV (RBC) [Entitic vol] 92.1 fL Normal 81.0-99.0 [facility] Comment on above: Performed By: #### C BC ####[facility] Ggjleymkwy[address] [place], [place] [address]Dr. Airam Tripathi MONO # 0.6 103/ul Normal 0.3-0.8 [facility] Comment on above: Performed By: #### C BC ####[facility] Yizuzmpjbo[address] [place], [place] [address]Dr. Selenaneil Tripathi Monocytes/100 WBC (Bld) 10.0 % Normal 1.7-12.0 [facility] Comment on above: Performed By: #### C BC ####[facility] W[address]hxmtexxd[address] [place], [place] [address]Dr. Airam Tripathi NEUT # 3.7 103/ul Normal 1.4-6.5 [facility] Comment on above: Performed By: #### C BC ####[facility] Wbbqsjjdip4[address] [place], [place] [address]Dr. Airam Tripathi Neutrophils/100 WBC (Bld) 60.6 % Normal 43.0-75.0 [facility] Comment on above: Performed By: #### C BC ####[facility] Vkhjkbxrcn9740[address] [place], [place] [address]Dr. Airam Deuce Platelet mean volume (Bld) [Entitic vol] 9.1 fL Critically low 9.5-13.5 [facility] Comment on above: Performed By: #### C BC ####[facility] Qtfcouinzt5370 [place] [address]Dr. Airam Tripathi PLT 242 103/ul Normal 150-450 [facility] Comment on above: Performed By: #### C BC ####[facility] Eiiydtthea6882 [place] [address]Dr. Airam Tripathi RBC 3.04 106/ul Critically low 4.20-5.40 [facility] Comment on above: Performed By: #### C BC ####[facility] Uadxmpkjpa3488 [place] [address]Dr. Airam Tripathi WBC 6.1 103/ul Normal 4.0-11.0 [facility] Comment on above: Performed By: #### C BC ####[facility] Blkdxzlqnf[address] [place], [place] [address]Dr. Airam Tripathi CT STROKE HEAD WOon 11-17-19 CT STROKE HEAD WO Normal [facility] PROF CHEM 8 (BAS METB)on Anion gap [Moles/Vol] 9.8 mmol/L Normal [facility] Comment on above: Performed By: #### B MP, HSTROPN ####[facility] Nyoftidtla24[address] [place], [place] [address]Dr. Selenaneil Tripathi Calcium [Mass/Vol] 8.4 mg/dL Critically low 8.5-10.1 [facility] Comment on above: Performed By: #### B MP, HSTROPN ####[facility] Kqkwcqueav2761 [place] [address]Dr. Selenaneil Tripathi Chloride [Moles/Vol] 99 mmol/L Normal 98-107 [facility] Comment on above: Performed By: #### B MP, HSTROPN ####[facility] Fxzkwibgaz7001 [place] [address]Dr. Selenaneil Tripathi CO2 [Moles/Vol] 28.3 mmol/L Normal 21.0-32.0 [facility] Comment on above: Performed By: #### B MP, HSTROPN ####[facility] Tkxgtjtkaq8890 [place] [address]Dr. Selenaneil Tripathi Creatinine [Mass/Vol] 1.40 mg/dL Critically high 0.55-1.02 [facility] Comment on above: Performed By: #### B GERTRUDE, HSTROPN ####[facility] Qrrcubefii4822 [place] [address]Dr. Airam Tripathi EGFR-AF LATVIAN 46 mL/min/1.73m2 Critically low >=60 [facility] Comment on above: Performed By: #### B GERTRUDE, HSTROPN ####[facility] Fehygsodzo[address] [place], [place] [address]Dr. Airam Tripathi EGFR-NON AF LATVIAN 38 mL/min/1.73m2 Critically low >=60 [facility] Comment on above: Performed By: #### B GERTRUDE, HSTROPN ####[facility] Xwkhelbkoe[address] [place], [place] [address]Dr. Airam Tripathi Glucose [Mass/Vol] 88 mg/dL Normal 74-106 [facility] Comment on above: Performed By: #### B GERTRUDE, HSTROPN ####[facility] Lsgopealny90[address] [place], [place] [address]Dr. Selenaneil Tripathi Potassium [Moles/Vol] 5.1 mmol/L Normal 3.5-5.1 [facility] Comment on above: Performed By: #### B GERTRUDE, HSTROPN ####[facility] Cxqpkyxmlg[address] [place], [place] [address]Dr. Airam Tripathi Sodium [Moles/Vol] 132 mmol/L Critically low 136-145 [facility] Comment on above: Performed By: #### B GERTRDUE, HSTROPN ####[facility] [address]htkkkbmb96[address] [place], [place] [address]Dr. Airam Tripathi Urea nitrogen [Mass/Vol] 56.0 mg/dL Critically high 7.0-18.0 [facility] Comment on above: Performed By: #### B GERTRUDE, HSTROPN ####[facility] Yinzihshdi[address] [place], [place] [address]Dr. Selenaneil Tripathi Urea nitrogen/Creatinine [Mass ratio] 40.0 mg/mg Normal [facility] Comment on above: Performed By: #### B GERTRUDE, HSTROPN ####[facility] Extrabmbru[address] [place] [address]Dr. Airam Tripathi TROPONIN, HIGH SENSITIVITYon 11-16-2022 HSTROP 9.9 pg/mL Normal 4.0-51.3 [facility] Comment on above: Result Comment: CUT- OFF POINTS HAVE BEEN ESTABLISHED BASED ON THE FOURTH UNIVERSAL DEFINITIONS OF MYOCARDIALINFARCTION. THE UPPER REFERENCE LIMIT (URL) OF TROPONIN, DEFINED THE 99TH PERCENTILE OFcTnI DISTRIBUTION IN A REFERENCE POPULATION, HAS BEEN CONFIRMED THE DECISION THRESHOLDFOR WA DIAGNOSIS. Performed By: #### B GERTRUDE, HSTROPN ####[facility] Fimdgvxupg43[address] [place] [address]Dr. Airam Tripathi XR CHEST 1 Von 11-16-2022 XR CHEST 1 V Normal [facility] CBC AUTO DIFFon 11-11-2022 BASO # 0.0 103/ul Normal 0.0-0.1 [facility] Comment on above: Performed By: #### C BC ####[facility] Uhmuvlplwq[address] [place], [place] [address]Dr. Airam Deuce Basophils/100 WBC (Bld) 0.4 % Normal 0.2-2.0 [facility] Comment on above: Performed By: #### C BC ####[facility] Efgdwpfvrs0072 [place] [address]Dr. Airam Tripathi EO # 0.4 103/ul Normal 0.0-0.7 [facility] Comment on above: Performed By: #### C BC ####[facility] Wpbsnqzvyg8292 [place] [address]Dr. Airam Deuce Eosinophils/100 WBC (Bld) 4.6 % Normal 0.9-7.0 [facility] Comment on above: Performed By: #### C BC ####[facility] Wvvjnxgnfr[address] [place], [place] [address]Dr. Airam Tripathi Erythrocyte distribution width (RBC) [Ratio] 15.8 % Critically high 11.0-15.0 [facility] Comment on above: Performed By: #### C BC ####[facility] V[address]rom[address] [place], [place] [id number]. Airam Tripathi Hematocrit (Bld) [Volume fraction] 30.3 % Critically low 36.0-48.0 [facility] Comment on above: Performed By: #### C BC ####[facility] Inkhxtciug7751 [place] [address]Dr. Airam Tripathi Hemoglobin (Bld) [Mass/Vol] 9.3 g/dL Critically low 12.0-16.0 [facility] Comment on above: Performed By: #### C BC ####[facility] Nrekcfbzvy[address] [place], [place] [address]Dr. Airam Tripathi IG # 0.03 10e3/ul Normal 0.00-0.03 [facility] Comment on above: Performed By: #### C BC ####[facility] Czobmoiuba3[address] [place], [place] [address]Dr. Airam Tripathi IG % 0.4 % Normal 0.0-0.5 [facility] Comment on above: Performed By: #### C BC ####[facility] Aoanartyvx945[address] [place], [place] [address]Dr. Airam Tripathi LYMPH # 2.0 103/ul Normal 1.2-3.8 [facility] Comment on above: Performed By: #### C BC ####[facility] Adxahoasnr7735 [place] [address]Dr. Airam Tripathi Lymphocytes/100 WBC (Bld) 24.5 % Normal 20.5-60.0 [facility] Comment on above: Performed By: #### C BC ####[facility] Jheahbnpjq79[address] [place] [address]Dr. Airam Tripathi MANUAL DIFF REQ NO Normal [facility] Comment on above: Performed By: #### C BC ####[facility] Rodttxcpiz07[address] [place], [place] [address]DrKianna Tripathi MCH (RBC) [Entitic mass] 28.9 pg Normal 26.7-34.0 [facility] Comment on above: Performed By: #### C BC ####[facility] Foupffxnrp[address] [place], [place] [address]Dr. Airam Tripathi MCHC (RBC) [Mass/Vol] 30.7 g/dL Normal 29.9-35.2 [facility] Comment on above: Performed By: #### C BC ####[facility] Aardnmplny70[address] [place] [address]Dr. Airam Deuce MCV (RBC) [Entitic vol] 94.1 fL Normal 81.0-99.0 [facility] Comment on above: Performed By: #### C BC ####[facility] Lbvrekpkeb[address] [place], [place] [address]Dr. Airam Tripathi MONO # 0.7 103/ul Normal 0.3-0.8 [facility] Comment on above: Performed By: #### C BC ####[facility] Laorqagsne[address] [place], [place] [address]Dr. Airam Tripathi Monocytes/100 WBC (Bld) 8.3 % Normal 1.7-12.0 [facility] Comment on above: Performed By: #### C BC ####[facility] Imtznpalcl[address] [place], [place] [address]Dr. Airam Tripathi NEUT # 5.0 103/ul Normal 1.4-6.5 [facility] Comment on above: Performed By: #### C BC ####[facility] Ryxfjgshlq9[address] [place], [place] [address]Dr. Airam Tripathi Neutrophils/100 WBC (Bld) 61.8 % Normal 43.0-75.0 [facility] Comment on above: Performed By: #### C BC ####[facility] Pfsgicaijq[address] [place], [place] [address]Dr. Airam Tripathi Platelet mean volume (Bld) [Entitic vol] 9.4 fL Critically low 9.5-13.5 [facility] Comment on above: Performed By: #### C BC ####[facility] Amiuxwfbgb138[address] [place], [place] [address]Dr. Airam Tripathi PLT 270 103/ul Normal 150-450 [facility] Comment on above: Performed By: #### C BC ####[facility] Nqmovwahqb7846 [place] [address]Dr. Airam Tripathi RBC 3.22 106/ul Critically low 4.20-5.40 [facility] Comment on above: Performed By: #### C BC ####[facility] Vayhydhjmw6[address] [place] [address]Dr. Airam Tripathi WBC 8.1 103/ul Normal 4.0-11.0 [facility] Comment on above: Performed By: #### C BC ####[facility] Qdzcvnlqph6652 [place] [address]DrKianna Tripathi PROF 14(COMP METB)on 023 Albumin [Mass/Vol] 3.2 g/dL Critically low 3.4-5.0 [facility] Comment on above: Performed By: #### C MP ####[facility] Z[address]jftvhm[address] [place], [place] [address]Dr. Airam Tripathi Albumin/Globulin [Mass ratio] 1.0 {ratio} Normal [facility] Comment on above: Performed By: #### C MP ####[facility] Lckiokijut4[address] [place], [place] [address]Dr. Airam Tripathi ALP [Catalytic activity/Vol] 108 U/L Normal 46-116 [facility] Comment on above: Performed By: #### C MP ####[facility] Ehpuyxwdir[address] [place], [place] [address]Dr. Airam Tripathi ALT [Catalytic activity/Vol] 30 U/L Normal 14-59 [facility] Comment on above: Performed By: #### C MP ####[facility] [address]tcoqogzwp[address] [place], [place] [address]DrKianna Tripathi Anion gap [Moles/Vol] 12.8 mmol/L Normal [facility] Comment on above: Performed By: #### C MP ####[facility] Xxtwqpvqnl[address] [place], [place] [address]DrKianna Tripathi AST [Catalytic activity/Vol] 33 U/L Normal 15-37 [facility] Comment on above: Performed By: #### C MP ####[facility] [address]jrnflt[address] [place], [place] [address]Dr. Airam Tripathi Bilirubin [Mass/Vol] 0.2 mg/dL Normal 0.2-1.0 [facility] Comment on above: Performed By: #### C MP ####[facility] Rmxxqlqvyx[address] [place], [place] [address]Dr. Airam Tripathi Calcium [Mass/Vol] 8.3 mg/dL Critically low 8.5-10.1 Th [facility] Comment on above: Performed By: #### C MP ####[facility] [address]zgqzrgb[address] [place], [place] [address]Dr. Airam Deuce Chloride [Moles/Vol] 99 mmol/L Normal 98-107 [facility] Comment on above: Performed By: #### C MP ####[facility] Lmfmualmio7[address] [address] [place], [place] [address]Dr. Airam Deuce CO2 [Moles/Vol] 27.6 mmol/L Normal 21.0-32.0 [facility] Comment on above: Performed By: #### C MP ####[facility] Bitffgsdri[address] [place], [place] [address]Dr. Airam Deuce Creatinine [Mass/Vol] 2.01 mg/dL Critically high 0.55-1.02 [facility] Comment on above: Performed By: #### C MP ####[facility] Wkihhyumgg[address] [place], [place] [address]Dr. Airam Deuce EGFR-AF LATVIAN 31 mL/min/1.73m2 Critically low >=60 [facility] Comment on above: Performed By: #### C MP ####[facility] Zicjfgypgo33[address] [place], [place] [address]Dr. Selenaneil Deuce EGFR-NON AF LATVIAN 25 mL/min/1.73m2 Critically low >=60 [facility] Comment on above: Performed By: #### C MP ####[facility] Kwmzklwipx[address] [place], [place] [address]Dr. Airam Tripathi Globulin (S) [Mass/Vol] 3.2 g/dL Normal [facility] Comment on above: Performed By: #### C MP ####[facility] Axdqqeqwtf4[address] [place], [place] [address]Dr. Airam Tripathi Glucose [Mass/Vol] 158 mg/dL Critically high 74-106 [facility] Comment on above: Performed By: #### C MP ####[facility] Yq[address]ajb[address] [place] [address]Dr. Airam Tripathi Potassium [Moles/Vol] 5.4 mmol/L Critically high 3.5-5.1 [facility] Comment on above: Performed By: #### C MP ####[facility] Mdkldqegie16[address] [place] [address]Dr. Selenaneil Tripathi Protein [Mass/Vol] 6.4 g/dL Normal 6.4-8.2 [facility] Comment on above: Performed By: #### C MP ####[facility] Gkvxafojvs3[address] [place], [place] [address]Dr. Airam Tripathi Sodium [Moles/Vol] 134 mmol/L Critically low 136-145 [facility] Comment on above: Performed By: #### C MP ####[facility] Zmvucqtbmq1915[address] [place], [place] [address]Dr. Airam Tripathi Urea nitrogen [Mass/Vol] 52.0 mg/dL Critically high 7.0-18.0 [facility] Comment on above: Performed By: #### C MP ####[facility] Scriygwsey[address] [place], [place] [address]Dr. Airam Tripathi Urea nitrogen/Creatinine [Mass ratio] 25.9 mg/mg Normal [facility] Comment on above: Performed By: #### C MP ####[facility] Wdfmthhjog[address] [place], [place] [address]Dr. Airam Tripathi OSMOLALITYon 11-06-2022 Osmolality [Osmolality] 261 mosm/kg Critically low 275-295 [facility] Comment on above: Performed By: #### O SMO ####[facility] Ovepwkjpls[address] [place], [place] [address]Dr. Airam Deuce XR HIPS GUMARO 3_4V WO PELVISon 11-04-2022 XR HIPS GUMARO 3_4V WO PELVIS Normal [facility] XR KNEE LT 4V or >on 023 XR KNEE LT 4V or > Normal [facility] BNPon 11-03-2022 Natriuretic peptide B (Bld) [Mass/Vol] 1168.0 pg/mL Critically high <=900.0 [facility] Comment on above: Performed By: #### B FEATHER MAKER, BMP ####[facility] Lqtvbrqmkn8[address] [place], [place] [address]Dr. Airam Deuce CBC AUTO DIFFon 11-03-2022 BASO # 0.0 103/ul Normal 0.0-0.1 [facility] Comment on above: Performed By: #### C BC ####[facility] Ovhmiihwrm[address] [place], [place] [address]Dr. Airam Tripathi Basophils/100 WBC (Bld) 0.3 % Normal 0.2-2.0 [facility] Comment on above: Performed By: #### C BC ####[facility] Comywhmire9[address] [place], [place] [address]Dr. Airam Tripathi EO # 0.2 103/ul Normal 0.0-0.7 [facility] Comment on above: Performed By: #### C BC ####[facility] Zfgtpgasho12[address] [place], [place] [address]Dr. Airam Tripathi Eosinophils/100 WBC (Bld) 1.9 % Normal 0.9-7.0 [facility] Comment on above: Performed By: #### C BC ####[facility] Eolgppyhxf36[address] [place], [place] [address]Dr. Airam Tripathi Erythrocyte distribution width (RBC) [Ratio] 15.2 % Critically high 11.0-15.0 [facility] Comment on above: Performed By: #### C BC ####[facility] Coyqwkjfmp7216[address] [place], [place] [address]Dr. Airam Tripathi Hematocrit (Bld) [Volume fraction] 34.3 % Critically low 36.0-48.0 [facility] Comment on above: Performed By: #### C BC ####[facility] Fznxuxiiaf634[address] [place], [place] [address]Dr. Airam Tripathi Hemoglobin (Bld) [Mass/Vol] 11.0 g/dL Critically low 12.0-16.0 [facility] Comment on above: Performed By: #### C BC ####[facility] [address] [place] [id number]. Airam Tripathi IG # 0.06 10e3/ul Critically high 0.00-0.03 [facility] Comment on above: Performed By: #### C BC ####[facility] Pqaneeffvo40[address] [place] [address]Dr. Airam Tripathi IG % 0.5 % Normal 0.0-0.5 [facility] Comment on above: Performed By: #### C BC ####[facility] Dtkbojdwjy7[address] [place] [address]Dr. Airam Tripathi LYMPH # 2.3 103/ul Normal 1.2-3.8 [facility] Comment on above: Performed By: #### C BC ####[facility] Hgibawixsb7[address] [place] [address]DrKianna Tripathi Lymphocytes/100 WBC (Bld) 20.4 % Critically low 20.5-60.0 [facility] Comment on above: Performed By: #### C BC ####[facility] Pclgrymhja4[address] [place] [address]DrKianna Tripathi MANUAL DIFF REQ NO Normal [facility] Comment on above: Performed By: #### C BC ####[facility] Z[address]ytklzs260[address] [place] [address]Dr. Airam Tripathi MCH (RBC) [Entitic mass] 28.7 pg Normal 26.7-34.0 [facility] Comment on above: Performed By: #### C BC ####[facility] [address] [place] [address]Dr. Selenaneil Tripathi MCHC (RBC) [Mass/Vol] 32.1 g/dL Normal 29.9-35.2 [facility] Comment on above: Performed By: #### C BC ####[facility] Tribdvbyfp11[address] [place] [address]Dr. Airam Tripathi MCV (RBC) [Entitic vol] 89.6 fL Normal 81.0-99.0 [facility] Comment on above: Performed By: #### C BC ####[facility] Gjrlemkcbr[address] [place] [id number]. Airam Tripathi MONO # 0.9 103/ul Critically high 0.3-0.8 [facility] Comment on above: Performed By: #### C BC ####[facility] Jedovmxwiu55[address] [place] [id number]. Airam Tripathi Monocytes/100 WBC (Bld) 8.3 % Normal 1.7-12.0 [facility] Comment on above: Performed By: #### C BC ####[facility] Bjnymonfde8[address] [place] [id number]. Airam Tripathi NEUT # 7.8 103/ul Critically high 1.4-6.5 [facility] Comment on above: Performed By: #### C BC ####[facility] Mdoljpvkjq6335 [place] [address]Dr. Airam Tripathi Neutrophils/100 WBC (Bld) 68.6 % Normal 43.0-75.0 [facility] Comment on above: Performed By: #### C BC ####[facility] Zzbongpfpj9078 [place] [id number]. Airam Tripathi Platelet mean volume (Bld) [Entitic vol] 8.9 fL Critically low 9.5-13.5 [facility] Comment on above: Performed By: #### C BC ####[facility] Ofoisvqaka44[address] [place] [address]Dr. Airam Tripathi PLT 323 103/ul Normal 150-450 [facility] Comment on above: Performed By: #### C BC ####[facility] Dlymsszrbs6736 [place] [id number]. Airam Tripathi RBC 3.83 106/ul Critically low 4.20-5.40 [facility] Comment on above: Performed By: #### C BC ####[facility] Kzgvabpakh4094 [place] [id number]. Airam Tripathi WBC 11.4 103/ul Critically high 4.0-11.0 [facility] Comment on above: Performed By: #### C BC ####[facility] Hmbnexsqya4598 [place] [id number]. Airam Tripathi BASO # 0.0 103/ul Normal 0.0-0.1 [facility] Comment on above: Performed By: #### C BC ####[facility] Hzszjkmlpg92[address] [place], [place] [address]Dr. Airam Tripathi Basophils/100 WBC (Bld) 0.2 % Normal 0.2-2.0 [facility] Comment on above: Performed By: #### C BC ####[facility] Ldorirvsto[address] [place], [place] [address]Dr. Airam Tripathi EO # 0.1 103/ul Normal 0.0-0.7 [facility] Comment on above: Performed By: #### C BC ####[facility] S[address]ygfpcpj[address] [place], [place] [address]Dr. Selenaneil Tripathi Eosinophils/100 WBC (Bld) 0.7 % Critically low 0.9-7.0 [facility] Comment on above: Performed By: #### C BC ####[facility] Ytrndsafzj[address] [place], [place] [address]Dr. Airam Tripathi Erythrocyte distribution width (RBC) [Ratio] 15.4 % Critically high 11.0-15.0 [facility] Comment on above: Performed By: #### C BC ####[facility] Ngybbuhpct14[address] [place], [place] [address]Dr. Airam Tripathi Hematocrit (Bld) [Volume fraction] 33.6 % Critically low 36.0-48.0 [facility] Comment on above: Performed By: #### C BC ####[facility] Shxnegtdee8637[address] [place], [place] [address]Dr. Airam Tripathi Hemoglobin (Bld) [Mass/Vol] 10.9 g/dL Critically low 12.0-16.0 [facility] Comment on above: Performed By: #### C BC ####[facility] Ubcnpxjduk[address] [place], [place] [address]Dr. Airam Tripathi IG # 0.04 10e3/ul Critically high 0.00-0.03 [facility] Comment on above: Performed By: #### C BC ####[facility] Qilmtkenor[address] [place] [address]Dr. Airam Tripathi IG % 0.5 % Normal 0.0-0.5 [facility] Comment on above: Performed By: #### C BC ####[facility] Zecuohxtci[address] [place] [address]Dr. Airam Tripathi LYMPH # 1.1 103/ul Critically low 1.2-3.8 [facility] Comment on above: Performed By: #### C BC ####[facility] Yjwlfljekd23[address] [place] [address]Dr. Airam Deuce Lymphocytes/100 WBC (Bld) 13.3 % Critically low 20.5-60.0 [facility] Comment on above: Performed By: #### C BC ####[facility] Fsdapirqzj[address] [place], [place] [address]Dr. Selenaneil Tripathi MANUAL DIFF REQ NO Normal [facility] Comment on above: Performed By: #### C BC ####[facility] Pqjsiagqae[address] [place], [place] [address]Dr. Airam Tripathi MCH (RBC) [Entitic mass] 29.1 pg Normal 26.7-34.0 [facility] Comment on above: Performed By: #### C BC ####[facility] Inssjutanf[address] [place] [address]Dr. Airam Tripathi MCHC (RBC) [Mass/Vol] 32.4 g/dL Normal 29.9-35.2 [facility] Comment on above: Performed By: #### C BC ####[facility] Iotstyiasf38[address] [place] [address]Dr. Airam Tripathi MCV (RBC) [Entitic vol] 89.6 fL Normal 81.0-99.0 [facility] Comment on above: Performed By: #### C BC ####[facility] D[address]wqeglqmu[address] [place], [place] [address]Dr. Airam Deuce MONO # 0.5 103/ul Normal 0.3-0.8 [facility] Comment on above: Performed By: #### C BC ####[facility] Fatxjryuse030[address] [place] [id number]. Airam Tripathi Monocytes/100 WBC (Bld) 6.4 % Normal 1.7-12.0 [facility] Comment on above: Performed By: #### C BC ####[facility] Fctjtpaaej3204 [place] [id number]. Airam Tripathi NEUT # 6.5 103/ul Normal 1.4-6.5 [facility] Comment on above: Performed By: #### C BC ####[facility] Rybabekdri3839 [place] [phone]. Airam Tripathi Neutrophils/100 WBC (Bld) 78.9 % Critically high 43.0-75.0 [facility] Comment on above: Performed By: #### C BC ####[facility] Qbhltxhplx5735 [place] [address]Dr. Airam Tripathi Platelet mean volume (Bld) [Entitic vol] 9.4 fL Critically low 9.5-13.5 [facility] Comment on above: Performed By: #### C BC ####[facility] Qosiklpzgx42[address] [place] [address]Dr. Airam Tripathi PLT 314 103/ul Normal 150-450 [facility] Comment on above: Performed By: #### C BC ####[facility] Xzobaxvvqn5138 [place] [id number]. Airam Tripathi RBC 3.75 106/ul Critically low 4.20-5.40 [facility] Comment on above: Performed By: #### C BC ####[facility] Ffgxtkfwbj1502 [place] [id number]. Airam Tripathi WBC 8.3 103/ul Normal 4.0-11.0 [facility] Comment on above: Performed By: #### C BC ####[facility] Zcuhrpffge[address] [place] [address]Dr. Airam Tripathi CT HEAD WO CONon 11-03-2022 CT HEAD WO CON Normal [facility] PROF 14(COMP METB)on 05-11-2 023 Albumin [Mass/Vol] 3.2 g/dL Critically low 3.4-5.0 [facility] Comment on above: Performed By: #### C MP ####[facility] Amqfblqhbf[address] [place] [address]Dr. Airam Deuce Albumin/Globulin [Mass ratio] 0.9 {ratio} Normal [facility] Comment on above: Performed By: #### C MP ####[facility] Cahettxqfn7799 [place] [address]Dr. Airam Deuce ALP [Catalytic activity/Vol] 109 U/L Normal 46-116 [facility] Comment on above: Performed By: #### C MP ####[facility] Ybaxrxprjb64[address] [place], [place] [address]Dr. Airam Deuce ALT [Catalytic activity/Vol] 25 U/L Normal 14-59 [facility] Comment on above: Performed By: #### C MP ####[facility] Omiyvecgkf[address] [place], [place] [address]Dr. Selenaneil Deuce Anion gap [Moles/Vol] 10.9 mmol/L Normal [facility] Comment on above: Performed By: #### C MP ####[facility] Anyxlpuqfp[address] [place], [place] [address]Dr. Airam Deuce AST [Catalytic activity/Vol] 24 U/L Normal 15-37 [facility] Comment on above: Performed By: #### C MP ####[facility] Asfbufzrfw8[address] [place], [place] [address]Dr. Airam Tripathi Bilirubin [Mass/Vol] 0.3 mg/dL Normal 0.2-1.0 [facility] Comment on above: Performed By: #### C MP ####[facility] Sjmjjnassx[address] [place], [place] [address]Dr. Airam Tripathi Calcium [Mass/Vol] 8.6 mg/dL Normal 8.5-10.1 [facility] Comment on above: Performed By: #### C MP ####[facility] Qcoutdukwc9847 [place] [address]Dr. Airam Tripathi Chloride [Moles/Vol] 95 mmol/L Critically low 98-107 [facility] Comment on above: Performed By: #### C MP ####[facility] Wqarmaeraf0674 [place] [address]Dr. Airam Tripathi CO2 [Moles/Vol] 27.8 mmol/L Normal 21.0-32.0 [facility] Comment on above: Performed By: #### C MP ####[facility] Igqmsfxdlx2666 [place] [address]Dr. Airam Tripathi Creatinine [Mass/Vol] 1.07 mg/dL Critically high 0.55-1.02 [facility] Comment on above: Performed By: #### C MP ####[facility] Srnftijwkr6762 [place] [address]Dr. Airam Tripathi EGFR-AF LATVIAN >60 Normal >=60 [facility] Comment on above: Performed By: #### C MP ####[facility] Szlienxkiq7766 [place] [address]Dr. Airam Tripathi EGFR-NON AF LATVIAN 52 mL/min/1.73m2 Critically low >=60 [facility] Comment on above: Performed By: #### C MP ####[facility] Raysthkvyd3092 [place] [address]Dr. Airam Tripathi Globulin (S) [Mass/Vol] 3.5 g/dL Normal [facility] Comment on above: Performed By: #### C MP ####[facility] Vkboeewksm7961 [place] [address]Dr. Airam Tripathi Glucose [Mass/Vol] 86 mg/dL Normal 74-106 [facility] Comment on above: Performed By: #### C MP ####[facility] Dhsbrprnya9905 [place] [address]Dr. Airam Tripathi Potassium [Moles/Vol] 4.7 mmol/L Normal 3.5-5.1 [facility] Comment on above: Performed By: #### C MP ####[facility] Xwoovxqaxf[address] [place], [place] [address]Dr. Airam Tripathi Protein [Mass/Vol] 6.7 g/dL Normal 6.4-8.2 [facility] Comment on above: Performed By: #### C MP ####[facility] Zfkmpiwric3011 [place] [address]Dr. Airam Tripathi Sodium [Moles/Vol] 129 mmol/L Critically low 136-145 [facility] Comment on above: Performed By: #### C MP ####[facility] Ybjaqkqefg[address] [place], [place] [address]Dr. Airam Tripathi Urea nitrogen [Mass/Vol] 19.0 mg/dL Critically high 7.0-18.0 [facility] Comment on above: Performed By: #### C MP ####[facility] Ohyrppgqjr[address] [place], [place] [address]Dr. Airam Tripathi Urea nitrogen/Creatinine [Mass ratio] 17.8 mg/mg Normal [facility] Comment on above: Performed By: #### C MP ####[facility] Jfjoieybdt[address] [place], [place] [address]Dr. Airam Tripathi PROF CHEM 8 (BAS METB)on Anion gap [Moles/Vol] 9.0 mmol/L Normal [facility] Comment on above: Performed By: #### B FEATHER MAKER, BMP ####[facility] Soxmubbnbx[address] [place], [place] [address]Dr. Airam Tripathi Calcium [Mass/Vol] 8.5 mg/dL Normal 8.5-10.1 [facility] Comment on above: Performed By: #### B FEATHER MAKER, BMP ####[facility] Arnuatysax8623[address] [place], [place] [address]Dr. Airam Tripathi Chloride [Moles/Vol] 93 mmol/L Critically low 98-107 [facility] Comment on above: Performed By: #### B FEATHER MAKER, BMP ####[facility] Gbdsfbwzfa366[address] [place], [place] [address]Dr. Airam Tripathi CO2 [Moles/Vol] 28.1 mmol/L Normal 21.0-32.0 [facility] Comment on above: Performed By: #### B FEATHER MAKER, BMP ####[facility] Kdcgulqpuq04[address] [place], [place] [address]Dr. Airam Tripathi Creatinine [Mass/Vol] 1.17 mg/dL Critically high 0.55-1.02 [facility] Comment on above: Performed By: #### B FEATHER MAKER, BMP ####[facility] Hfezirfskb[address] [place], [place] [address]Dr. Airam Tripathi EGFR-AF LATVIAN 57 mL/min/1.73m2 Critically low >=60 [facility] Comment on above: Performed By: #### B FEATHER MAKER, BMP ####[facility] Erjzzdrfco[address] [place], [place] [address]Dr. Airam Tripathi EGFR-NON AF LATVIAN 47 mL/min/1.73m2 Critically low >=60 [facility] Comment on above: Performed By: #### B FEATHER MAKER, BMP ####[facility] Hdpsdfnlir[address] [place], [place] [address]Dr. Airam Tripathi Glucose [Mass/Vol] 107 mg/dL Critically high 74-106 [facility] Comment on above: Performed By: #### B FEATHER MAKER, BMP ####[facility] Buezlqbcco[address] [place], [place] [address]Dr. Airam Tripathi Potassium [Moles/Vol] 4.1 mmol/L Normal 3.5-5.1 [facility] Comment on above: Performed By: #### B FEATHER MAKER, BMP ####[facility] Iwzcdsfrle94[address] [place], [place] [address]Dr. Airam Tripathi Sodium [Moles/Vol] 126 mmol/L Critically low 136-145 [facility] Comment on above: Performed By: #### B FEATHER MAKER, BMP ####[facility] Jidunvwhax724[address] [place], [place] [address]Dr. Airam Tripathi Urea nitrogen [Mass/Vol] 20.0 mg/dL Critically high 7.0-18.0 [facility] Comment on above: Performed By: #### B FEATHER MAKER, BMP ####[facility] Thdtmsekfk[address] [place], [place] [address]Dr. Selenaneil Tripathi Urea nitrogen/Creatinine [Mass ratio] 17.1 mg/mg Normal [facility] Comment on above: Performed By: #### B FEATHER MAKER, BMP ####[facility] Ofcjkzhnqv2457 [place], [place] [address]N[place]. Airam Tripathi XR CHEST 1 Von 11-03-2022 XR CHEST 1 V Normal [facility] Activated partial thrombopla stin time (aPTT) in platelet poor plasma by coagulation aOrdered By: Favian Helm on 10-28-2022 aPTT Coag (PPP) [Time] 31.7 s 25.1-36.5 [facility] Alanine aminotransferase [En zymatic activity/volume] in Serum or PlasmaOrdered By: Favian Helm on 10-28-2022 ALT [Catalytic activity/Vol] 14 U/L 7-52 [facility] Albumin [Mass/volume] in Ser um or Plasma by Bromocresol green (BCG) dye binding methoOrdered By: Favian Helm on 10-28-2022 Albumin BCG dye [Mass/Vol] 3.6 g/dL 3.5-5.7 [facility] Alkaline phosphatase [Enzyma tic activity/volume] in Serum or PlasmaOrdered By: Favian Helm on 10-28-2022 ALP [Catalytic activity/Vol] 84 U/L 34-104 [facility] Aspartate aminotransferase [ Enzymatic activity/volume] in Serum or PlasmaOrdered By: Favian Helm on 10-28-2022 AST [Catalytic activity/Vol] 21 U/L 13-39 [facility] B-Type Natriuretic Peptideon 10-28-2022 Natriuretic peptide B (Bld) [Mass/Vol] 551.0 pg/mL High 5-100 [facility] Comment on above: Result Comment: PERF ORMED BY: [place] [address] PATHOLOGIST BEHAVIORAL HEALTH CONSULTANT TANNER GAVIN M.D. Performed By: #### V [id number], MG, BMP, JOSE, FE and TIBC, RETIC #### [address] Basophils Auto (Bld) [#/Vol] Ordered By: Favian Helm on 10-28-2022 Basophils (Bld) [#/Vol] 0.0 10*3/uL 0.0-0.2 [facility] Basophils/100 WBC Auto (Bld) Ordered By: Favian Helm on 10-28-2022 Basophils/100 WBC (Bld) 0.4 % . [facility] Bilirubin.total [Mass/volume ] in Serum or PlasmaOrdered By: Favian Helm on 10-28-2022 Bilirubin [Mass/Vol] 0.3 mg/dL 0.3-1.[address] [facility] CT head/brain wo conon 10-28 CT head/brain wo con [facility] [place] [address] CT Scan Report Signed Patient: Mabel Moser MR#: [id number] : 1960 Acct:[id number] Age/Sex: 62 / F ADM Date: 10/28/22 Loc: ER Room: Type: [facility] ER Attending Dr: Copies to: Favian [...] seen. EXTRA-AXIAL FLUID COLLECTIONS None MIDBRAIN: Unremarkable MARIA T: Unremarkable MEDULLA: Unremarkable SINUSES: Unremarkable ORBITS: Grossly unremarkable MASTOIDS: Unremarkable BONY STRUCTURES Intact ADDITIONAL FINDINGS: CT/CT head/brain wo con IMPRESSION: No acute findings. Diffuse atrophy and chronic small vessel ischemic changes. Impression dictated by: Baljinder Ball M.D.10/28/2022 7:46 PM Dictation Location: [place] [address] Transcribed By: [facility] 10/28/221945 Dictated By: Baljinder Ball DO 10/28/221934 Signed By: 10/28/221945 Normal [facility] Calcium [Mass/volume] in Ser um or PlasmaOrdered By: Favian Helm on 10-28-2022 Calcium [Mass/Vol] 8.2 mg/dL 8.6-10.3 [facility] Carbon dioxide, total [Moles /volume] in Serum or PlasmaOrdered By: Favian Helm on 10-28-2022 CO2 [Moles/Vol] 25.7 mmol/L 21.0-31.0 [facility] Chloride [Moles/volume] in S andrea or PlasmaOrdered By: Favian Helm on 10-28-2022 Chloride [Moles/Vol] 98 mmol/L 98-[address] [facility] Complete Blood Count Auto Di ffon 10-28-2022 Basophils (Bld) [#/Vol] 0.0 10*3/uL Normal 0.0-0.2 [facility] Comment on above: Result Comment: PERF ORMED BY: [place] [address] PATHOLOGIST BEHAVIORAL HEALTH CONSULTANT TANNER GAVIN M.D. Performed By: #### V [id number], MG, BMP, JOSE, FE and TIBC, RETIC #### [address] Basophils/100 WBC (Bld) 0.4 % Normal . [facility] Comment on above: Performed By: #### V [id number], MG, BMP, JOSE, FE and TIBC, RETIC #### [facility] [address] [place] [address] [place] Eosinophils (Bld) [#/Vol] 0.1 10*3/uL Normal 0.0-0.45 [facility] Comment on above: Performed By: #### V [id number], MG, BMP, JOSE, FE and TIBC, RETIC #### [place] [address] [place] Eosinophils/100 WBC (Bld) 1.0 % Normal . [facility] Comment on above: Performed By: #### V [id number], MG, BMP, JOSE, FE and TIBC, RETIC #### [address] Erythrocyte distribution width (RBC) [Ratio] 16.5 % High 11.9-15.3 [facility] Comment on above: Performed By: #### V [id number], MG, BMP, JOSE, FE and TIBC, RETIC #### [address] Hematocrit (Bld) [Volume fraction] 29.9 % Low 34.0-46.4 [facility] Comment on above: Performed By: #### V [id number], MG, BMP, JOSE, FE and TIBC, RETIC #### [address] Hemoglobin (Bld) [Mass/Vol] 9.6 g/dL Low 11.8-15.4 [facility] Comment on above: Performed By: #### V [id number], MG, BMP, JOSE, FE and TIBC, RETIC #### [address] [address] Lymphocytes (Bld) [#/Vol] 0.8 10*3/uL Low 1.00-4.8 [facility] Comment on above: Performed By: #### V [id number], MG, BMP, JOSE, FE and TIBC, RETIC #### [address] Lymphocytes/100 WBC (Bld) 12.8 % Normal . [facility] Comment on above: Performed By: #### V [id number], MG, BMP, JOSE, FE and TIBC, RETIC #### [address] MCH (RBC) [Entitic mass] 28.3 pg Normal 24.7-34.3 [facility] Comment on above: Performed By: #### V [id number], MG, BMP, JOSE, FE and TIBC, RETIC #### [address] MCV (RBC) [Entitic vol] 88.3 fL Normal 80-100 [facility] Comment on above: Performed By: #### V [id number], MG, BMP, JOSE, FE and TIBC, RETIC #### [address] Mean Corpuscular HGB Conc 32.0 g/dL Normal 32.0-35.0 [facility] Comment on above: Performed By: #### V [id number], MG, BMP, JOSE, FE and TIBC, RETIC #### [address] Monocytes (Bld) [#/Vol] 0.2 10*3/uL Normal 0.0-0.8 [facility] Comment on above: Performed By: #### V [id number], MG, BMP, JOSE, FE and TIBC, RETIC #### [address] Monocytes/100 WBC (Bld) 17.29 % Normal 0.00-20.00 [facility] Comment on above: Performed By: #### V [id number], MG, BMP, JOSE, FE and TIBC, RETIC #### [address] Monocytes/100 WBC (Bld) 2.5 % Normal . [facility] Comment on above: Performed By: #### V [id number], MG, BMP, JOSE, FE and TIBC, RETIC #### [address] Neutrophils (Bld) [#/Vol] 5.5 10*3/uL Normal 1.8-7.7 [facility] Comment on above: Performed By: #### V [id number], MG, BMP, JOSE, FE and TIBC, RETIC #### [address] Neutrophils/100 WBC (Bld) 83.3 % Normal . [facility] Comment on above: Performed By: #### V [id number], MG, BMP, JOSE, FE and TIBC, RETIC #### [address] NRBC% 0.0 /100{WBC} Normal 0-0.5 [facility] Comment on above: Performed By: #### V [id number], MG, BMP, JOSE, FE and TIBC, RETIC #### [address] Platelet mean volume (Bld) [Entitic vol] 7.3 fL Normal 6.3-10.7 [facility] Comment on above: Performed By: #### V [id number], MG, BMP, JOSE, FE and TIBC, RETIC #### [address] Platelets (Bld) [#/Vol] 260 10*3/uL Normal 150-450 [facility] Comment on above: Performed By: #### V [id number], MG, BMP, JOSE, FE and TIBC, RETIC #### [address] RBC (Bld) [#/Vol] 3.38 10*6/uL Low 3.60-5.00 [facility] Comment on above: Performed By: #### V [id number], MG, BMP, JOSE, FE and TIBC, RETIC #### [address] WBC (Bld) [#/Vol] 6.6 10*3/uL Normal 3.8-11.6 [facility] Comment on above: Performed By: #### V [id number], MG, BMP, JOSE, FE and TIBC, RETIC #### [address] Comprehensive Metabolic Pane sameer 10-28-2022 Albumin [Mass/Vol] 3.6 g/dL Normal 3.5-5.7 [facility] Comment on above: Performed By: #### V [id number], MG, BMP, JOSE, FE and TIBC, RETIC #### [address] Albumin/Globulin [Mass ratio] 1.6 {ratio} Normal [facility] Comment on above: Performed By: #### V [id number], MG, BMP, JOSE, FE and TIBC, RETIC #### [address] ALP [Catalytic activity/Vol] 84 U/L Normal 34-104 [facility] Comment on above: Performed By: #### V [id number], MG, BMP, JOSE, FE and TIBC, RETIC #### [address] ALT [Catalytic activity/Vol] 14 U/L Normal 7-52 [facility] Comment on above: Performed By: #### V [id number], MG, BMP, JOSE, FE and TIBC, RETIC #### [address] Anion gap [Moles/Vol] 10.0 mmol/L Normal 6.0-15.0 [facility] Comment on above: Performed By: #### V [id number], MG, BMP, JOSE, FE and TIBC, RETIC #### [address] AST [Catalytic activity/Vol] 21 U/L Normal 13-39 [facility] Comment on above: Performed By: #### V [id number], MG, BMP, JOSE, FE and TIBC, RETIC #### [address] Bilirubin [Mass/Vol] 0.3 mg/dL Normal 0.3-1.[address] [facility] Comment on above: Performed By: #### V [id number], MG, BMP, JOSE, FE and TIBC, RETIC #### [address] Calcium [Mass/Vol] 8.2 mg/dL Low 8.6-10.3 [facility] Comment on above: Performed By: #### V JFR87QOC, MG, BMP, JOSE, FE and TIBC, RETIC #### [address] [address] [place] Chloride [Moles/Vol] 98 mmol/L Normal 98-[address] [facility] Comment on above: Performed By: #### V [id number], MG, BMP, JOSE, FE and TIBC, RETIC #### [facility] [address] CO2 [Moles/Vol] 25.7 mmol/L Normal 21.0-31.0 [facility] Comment on above: Performed By: #### V [id number], MG, BMP, JOSE, FE and TIBC, RETIC #### [facility] [address] Creatinine [Mass/Vol] 1.23 mg/dL High 0.60-1.20 [facility] Comment on above: Performed By: #### V [id number], MG, BMP, JOSE, FE and TIBC, RETIC #### [facility] [address] [place] [address] Creatinine Clr Calc Pharmacy 48.79 [facility] Comment on above: Performed By: #### V URM95VTS, MG, BMP, JOSE, FE and TIBC, RETIC #### [facility] [address] [place] [address] GFR/1.73 sq M.predicted MDRD (S/P/Bld) [Vol rate/Area] 50.309 mL/min/{1.73_m2} [facility] Comment on above: Performed By: #### V [id number], MG, BMP, JOSE, FE and TIBC, RETIC #### [facility] [address] [place] [address] Globulin (S) [Mass/Vol] 2.3 g/dL [facility] Comment on above: Performed By: #### V [id number], MG, BMP, JOSE, FE and TIBC, RETIC #### [facility] [address] Glucose [Mass/Vol] 98 mg/dL Normal 70-100 [facility] Comment on above: Result Comment: [place] Glucose Reference Range is dependent on time and content of last meal. Glucose of more than 200 mg/dL in a nonstressed, ambulatory subject supports the diagnosis of Diabetes Mellitus. ADA recommended reference range Performed By: #### V [id number], MG, BMP, JOSE, FE and TIBC, RETIC #### [facility] [address] Potassium [Moles/Vol] 4.7 mmol/L Normal 3.5-5.1 [facility] Comment on above: Performed By: #### V [id number], MG, BMP, JOSE, FE and TIBC, RETIC #### [address] Protein [Mass/Vol] 5.9 g/dL Low 6.4-8.9 [facility] Comment on above: Performed By: #### V [id number], MG, BMP, JOSE, FE and TIBC, RETIC #### [address] Sodium [Moles/Vol] 129 mmol/L Low 136-145 [facility] Comment on above: Performed By: #### V DQT72KSR, MG, BMP, JOSE, FE and TIBC, RETIC #### [address] Urea nitrogen [Mass/Vol] 36 mg/dL High 7-25 [facility] Comment on above: Performed By: #### V [id number], MG, BMP, JOSE, FE and TIBC, RETIC #### [place] [address] [place] Creatine Kinaseon 10-28-2022 CK [Catalytic activity/Vol] 45 U/L Normal 30-223 [facility] Comment on above: Performed By: #### V [id number], MG, BMP, JOSE, FE and TIBC, RETIC #### [place] [address] [place] Creatine kinase [Enzymatic a ctivity/volume] in Serum or PlasmaOrdered By: Favian Helm on 10-28-2022 CK [Catalytic activity/Vol] 45 U/L 30-223 [facility] Creatinine [Mass/volume] in Serum or PlasmaOrdered By: Favian Helm on 10-28-2022 Creatinine [Mass/Vol] 1.23 mg/dL 0.60-1.20 [facility] ECG 12 lead ECGon 10-28-2022 ECG 12 lead ECG [facility] [place] [address] Electrocardiograph Report Signed Patient: Mabel Moser MR#: [id number] : 1960 Acct:[id number] Age/Sex: 62 / F ADM Date: 10/28/22 Loc: ER Room: Type: [facility] ER Attending Dr: Ordering Provider: Favian Helm [...] normal variant Confirmed by Chris MAURO DO ([id number]) on 10/28/2022 8:40:44 PM Referred By: Electronically Signed By:Chris MAURO DO Transcribed By: MUS Signed By Chris Mauro DO 0 10/28/222039 Normal [facility] Eosinophils Auto (Bld) [#/Vo l]Ordered By: Favian Helm on 10-28-2022 Eosinophils (Bld) [#/Vol] 0.1 10*3/uL 0.0-0.45 [facility] Eosinophils/100 WBC Auto (Bl d)Ordered By: Favian Helm on 10-28-2022 Eosinophils/100 WBC (Bld) 1.0 % . [facility] Erythrocyte distribution wid th Auto (RBC) [Ratio]Ordered By: Favian Helm on 10-28-2022 Erythrocyte distribution width (RBC) [Ratio] 16.5 % 11.9-15.3 [facility] Globulin Calc (S) [Mass/Vol] Ordered By: Favian Helm on 10-28-2022 Globulin (S) [Mass/Vol] 2.3 g/dL [facility] Glucose [Mass/volume] in Ser um or PlasmaOrdered By: Favian Helm on 10-28-2022 Glucose [Mass/Vol] 98 mg/dL 70-100 [facility] Comment on above: ADA recommended refe rence rangeRandom Glucose Reference Range is dependent on time and content of last meal. Glucose of more than 200 mg/dL in a nonstressed, ambulatory subject supports the diagnosis of Diabetes Mellitus. Hematocrit Auto (Bld) [Volum e fraction]Ordered By: Favian Helm on 10-28-2022 Hematocrit (Bld) [Volume fraction] 29.9 % 34.0-46.4 [facility] Hemoglobin [Mass/volume] in BloodOrdered By: Favian Helm on 10-28-2022 Hemoglobin (Bld) [Mass/Vol] 9.6 g/dL 11.8-15.4 [facility] - CoagulationOrde red By: Favian Helm on 10-28-2022 PT Coag (PPP) [Time] 11.0 s 9.0-12.[address] [facility] Leukocytes [#/volume] correc nicol for nucleated erythrocytes in Blood by Automated counOrdered By: Favian Helm on 10-28-2022 WBC corrected for nucl RBC Auto (Bld) [#/Vol] 6.6 10*3/uL 3.8-11.6 [facility] Lymphocytes Auto (Bld) [#/Vo l]Ordered By: Favian Helm on 10-28-2022 Lymphocytes (Bld) [#/Vol] 0.8 10*3/uL 1.00-4.8 [facility] Lymphocytes/100 WBC Auto (Bl d)Ordered By: Favian Helm on 10-28-2022 Lymphocytes/100 WBC (Bld) 12.8 % . [facility] MCH Auto (RBC) [Entitic mass ]Ordered By: Favian Helm on 10-28-2022 MCH (RBC) [Entitic mass] 28.3 pg 24.7-34.3 [facility] MCHC Auto (RBC) [Mass/Vol]Or dered By: Favian Helm on 10-28-2022 MCHC (RBC) [Mass/Vol] 32.0 g/dL 32.0-35.0 [facility] MCV Auto (RBC) [Entitic vol] Ordered By: Favian Helm on 10-28-2022 MCV (RBC) [Entitic vol] 88.3 fL 80-100 [facility] Magnesiumon 10-28-2022 Magnesium [Mass/Vol] 1.9 mg/dL Normal 1.9-2.[address] [facility] Comment on above: Result Comment: PERF ORMED BY: [facility] [address] [place] [address] PATHOLOGIST BEHAVIORAL HEALTH CONSULTANT TANNER GAVIN M.D. Performed By: #### V [id number], MG, BMP, JOSE, FE and TIBC, RETIC #### [address] Magnesium [Mass/volume] in S andrea or PlasmaOrdered By: Favian Helm on 10-28-2022 Magnesium [Mass/Vol] 1.9 mg/dL 1.9-2.[address] [facility] Monocyte distribution width [Entitic volume] in Blood by AutomatedOrdered By: Favian Helm on 10-28-2022 Monocyte distribution width Auto (Bld) [Entitic vol] 17.29 % 0.00-20.00 [facility] Monocytes Auto (Bld) [#/Vol] Ordered By: Favian Helm on 10-28-2022 Monocytes (Bld) [#/Vol] 0.2 10*3/uL 0.0-0.8 [facility] Monocytes/100 WBC Auto (Bld) Ordered By: Favian Helm on 10-28-2022 Monocytes/100 WBC (Bld) 2.5 % . [facility] Natriuretic peptide B [Mass/ Vol]Ordered By: Favian Helm on 10-28-2022 Natriuretic peptide B (Bld) [Mass/Vol] 551.0 pg/mL 5-100 [facility] Neutrophils Auto (Bld) [#/Vo l]Ordered By: Favian Helm on 10-28-2022 Neutrophils (Bld) [#/Vol] 5.5 10*3/uL 1.8-7.7 [facility] Neutrophils/100 WBC Auto (Bl d)Ordered By: Favian Helm on 10-28-2022 Neutrophils/100 WBC (Bld) 83.3 % . [facility] No Panel InformationOrdered By: Favian Helm on 10-28-2022 Estimated GFR (CKD-EPI) 50.309 mL/Min [facility] Creatinine Clearance (Chem 48.79 [facility] Nucleated erythrocytes [Pres ence] in Blood by Automated countOrdered By: Favian Helm on 10-28-2022 Nucleated RBC Auto Ql (Bld) 0.0 /100{WBC} 0-0.5 [facility] Partial Thromboplastin Timeo n 10-28-2022 aPTT Coag (Bld) [Time] 31.7 s Normal 25.1-36.5 [facility] Comment on above: Result Comment: PERF ORMED BY: [facility] [address] [place] [address] PATHOLOGIST BEHAVIORAL HEALTH CONSULTANT TANNER GAVIN M.D. Performed By: #### V [id number], MG, BMP, JOSE, FE and TIBC, RETIC #### [facility] [address] Platelet mean volume Auto (B ld) [Entitic vol]Ordered By: Favian Helm on 10-28-2022 Platelet mean volume (Bld) [Entitic vol] 7.3 fL 6.3-10.7 [facility] Platelet poor plasma interna tional normalized ratio (INR) by coagulation assay (relatOrdered By: Favian Helm on 10-28-2022 INR Coag (PPP) [Relative time] 1.0 {INR} [facility] Comment on above: INR Therapeutic Rang [...] 10-28-2022 Platelets (Bld) [#/Vol] 260 10*3/uL 150-450 [facility] Potassium [Moles/volume] in Serum or PlasmaOrdered By: Favian Helm on 10-28-2022 Potassium [Moles/Vol] 4.7 mmol/L 3.5-5.1 [facility] Protein [Mass/volume] in Ser um or PlasmaOrdered By: Favian Helm on 10-28-2022 Protein [Mass/Vol] 5.9 g/dL 6.4-8.9 [facility] Prothrombin Time INRon 10-28 INR Coag (PPP) [Relative time] 1.0 {INR} Normal [facility] Comment on above: Result Comment: INR [...] 3 - 4.5 Performed By: #### V [id number], MG, BMP, JOSE, FE and TIBC, RETIC #### [facility] [address] PT Coag (PPP) [Time] 11.0 s Normal 9.0-12.[address] [facility] Comment on above: Performed By: #### V [id number], MG, BMP, JOSE, FE and TIBC, RETIC #### [facility] [address] RBC Auto (Bld) [#/Vol]Ordere d By: Favian Helm on 10-28-2022 RBC (Bld) [#/Vol] 3.38 10*6/uL 3.60-5.00 [facility] Serum or plasma albumin/glob ulin mass ratioOrdered By: Favian Helm on 10-28-2022 Albumin/Globulin [Mass ratio] 1.6 {ratio} [facility] Serum or plasma anion gap de terminationOrdered By: Favian Helm on 10-28-2022 Anion gap [Moles/Vol] 10.0 mmol/L 6.0-15.0 [facility] Sodium [Moles/volume] in Ser um or PlasmaOrdered By: Favian Helm on 10-28-2022 Sodium [Moles/Vol] 129 mmol/L 136-145 [facility] Troponin I High Sensitivityo n 10-28-2022 Troponin I High Sensitivity 5.8 pg/mL Normal 0.0-15.0 [facility] Comment on above: Result Comment: PERF ORMED BY: [place] [address] PATHOLOGIST BEHAVIORAL HEALTH CONSULTANT TANNER GAVIN M.D. Performed By: #### V [id number], MG, BMP, JOSE, FE and TIBC, RETIC #### [address] Troponin I.cardiac [Mass/vol ume] in Serum or Plasma by Detection limit <= 0.01 ng/Ordered By: Favian Helm on 10-28-2022 Troponin I.cardiac DL <= 0.01 ng/mL [Mass/Vol] 5.8 pg/mL 0.0-15.0 [facility] Urea nitrogen [Mass/volume] in Serum or PlasmaOrdered By: Favian Helm on 10-28-2022 Urea nitrogen [Mass/Vol] 36 mg/dL 7-25 [facility] WBC Auto (Bld) [#/Vol]Ordere d By: Favian Helm on 10-28-2022 WBC (Bld) [#/Vol] 6.6 10*3/uL 3.8-11.6 [facility] XR chest 2V*on 10-28-2022 XR chest 2V* [facility] [place] [address] [place] [address] XRay Report Signed Patient: Mabel Moser MR#: [id number] : 1960 Acct:[id number] Age/Sex: 62 / F ADM Date: 10/28/22 Loc: ER Room: Type: [facility] ER Attending Dr: Copies to: Favian Helm PA-C Ordering Provider: Favian Helm PA-C Date of Service: 10/28/22 XR/XR chest 2V*: Shortness of Breath/Dyspnea Plain film chest 2 view HISTORY: Fluid overload. Shortness of breath. Headache. COMPARISON: 08/31/2018 FINDINGS: SUPPORT DEVICES: None POSTSURGICAL CHANGES: Right Etjcvk-t-Eqtp intact with tip overlying the distal SVC. HEART: Within normal limits PULMONARY RAI: Within normal limits MEDIASTINUM: Unremarkable LUNGS AND PLEURA: No acute lung process, pleural effusion or pneumothorax identified. BONY STRUCTURES: Intact ADDITIONAL FINDINGS None XR/XR chest 2V* IMPRESSION: No acute process. Impression dictated by: Baljinder Ball M.D.10/28/2022 7:50 PM Dictation Location: [place] [address] Transcribed By: [facility] 10/28/221949 Dictated By: Baljinder Ball DO 10/28/221945 Signed By: 10/28/221949 [facility] BNPon 10-26-2022 Natriuretic peptide B (Bld) [Mass/Vol] 2657.0 pg/mL Critically high <=900.0 [facility] Comment on above: Performed By: #### C MP, BNP ####[facility] [address] [place], [place] [address]DrKianna Tripathi CBC AUTO DIFFon 10-26-2022 BASO # 0.0 103/ul Normal 0.0-0.1 [facility] Comment on above: Performed By: #### C BC ####[facility] [address] [place], [place] [address]DrKianna Tripathi Basophils/100 WBC (Bld) 0.5 % Normal 0.2-2.0 [facility] Comment on above: Performed By: #### C BC ####[facility] [address] [place], [place] [address]DrKianna Tripathi EO # 0.3 103/ul Normal 0.0-0.7 [facility] Comment on above: Performed By: #### C BC ####[facility] [address] [place], [place] [address]DrKianna Tripathi Eosinophils/100 WBC (Bld) 4.8 % Normal 0.9-7.0 [facility] Comment on above: Performed By: #### C BC ####[facility] [address] [place], [place] [address]Dr. Airam Tripathi Erythrocyte distribution width (RBC) [Ratio] 15.5 % Critically high 11.0-15.0 [facility] Comment on above: Performed By: #### C BC ####[facility] [address] [place], [place] [address]Dr. Airam Tripathi Hematocrit (Bld) [Volume fraction] 27.7 % Critically low 36.0-48.0 [facility] Comment on above: Performed By: #### C BC ####[facility] [address] [place], [place] [address]Dr. Airam Tripathi Hemoglobin (Bld) [Mass/Vol] 8.8 g/dL Critically low 12.0-16.0 [facility] Comment on above: Performed By: #### C BC ####[facility] [address] [place], [place] [address]Dr. Airam Tripathi IG # 0.03 10e3/ul Normal 0.00-0.03 [facility] Comment on above: Performed By: #### C BC ####[facility] [address] [place], [place] [address]Dr. Airam Tripathi IG % 0.5 % Normal 0.0-0.5 [facility] Comment on above: Performed By: #### C BC ####[facility] [address] [place], [place] [address]Dr. Airam Tripathi LYMPH # 1.6 103/ul Normal 1.2-3.8 [facility] Comment on above: Performed By: #### C BC ####[facility] [address] [place], [place] [address]Dr. Airam Tripathi Lymphocytes/100 WBC (Bld) 25.5 % Normal 20.5-60.0 [facility] Comment on above: Performed By: #### C BC ####[facility] [address] [place], [place] [address]Dr. Airam Tripathi MANUAL DIFF REQ NO Normal [facility] Comment on above: Performed By: #### C BC ####[facility] [address] [place] [address]Dr. Airam Tripathi MCH (RBC) [Entitic mass] 29.0 pg Normal 26.7-34.0 [facility] Comment on above: Performed By: #### C BC ####[facility] [address] [place] [address]Dr. Airam Tripathi MCHC (RBC) [Mass/Vol] 31.8 g/dL Normal 29.9-35.2 [facility] Comment on above: Performed By: #### C BC ####[facility] [address] [place], [place] [address]Dr. Airam Tripathi MCV (RBC) [Entitic vol] 91.4 fL Normal 81.0-99.0 [facility] Comment on above: Performed By: #### C BC ####[facility] [address] [place], [place] [address]Dr. Airam Tripathi MONO # 0.5 103/ul Normal 0.3-0.8 [facility] Comment on above: Performed By: #### C BC ####[facility] [address] [place], [place] [address]Dr. Airam Tripathi Monocytes/100 WBC (Bld) 7.5 % Normal 1.7-12.0 [facility] Comment on above: Performed By: #### C BC ####[facility] [address] [place], [place] [address]DrKianna Tripathi NEUT # 3.9 103/ul Normal 1.4-6.5 [facility] Comment on above: Performed By: #### C BC ####[facility] [address] [place], [place] [address]DrKianna Tripathi Neutrophils/100 WBC (Bld) 61.2 % Normal 43.0-75.0 [facility] Comment on above: Performed By: #### C BC ####[facility] [address] [place], [place] [address]Dr. Airam Tripathi Platelet mean volume (Bld) [Entitic vol] 9.4 fL Critically low 9.5-13.5 [facility] Comment on above: Performed By: #### C BC ####[facility] [address] [place] [address]Dr. Airam Tripathi PLT 247 103/ul Normal 150-450 [facility] Comment on above: Performed By: #### C BC ####[facility] [address] [place] [address]Dr. Airam Tripathi RBC 3.03 106/ul Critically low 4.20-5.40 [facility] Comment on above: Performed By: #### C BC ####[facility] [address] [place] [address]Dr. Airam Tripathi WBC 6.4 103/ul Normal 4.0-11.0 [facility] Comment on above: Performed By: #### C BC ####[facility] [address] [place], [place] [address]Dr. Airam Tripathi PROF 14(COMP METB)on 023 Albumin [Mass/Vol] 2.5 g/dL Critically low 3.4-5.0 [facility] Comment on above: Performed By: #### C MP, BNP ####[facility] [address] [place], [place] [address]Dr. Airam Tripathi Albumin/Globulin [Mass ratio] 0.9 {ratio} Normal [facility] Comment on above: Performed By: #### C MP, BNP ####[facility] [address] [place], [place] [address]Dr. Airam Tripathi ALP [Catalytic activity/Vol] 108 U/L Normal 46-116 [facility] Comment on above: Performed By: #### C MP, BNP ####[facility] [address] [place], [place] [address]Dr. Airam Tripathi ALT [Catalytic activity/Vol] 20 U/L Normal 14-59 [facility] Comment on above: Performed By: #### C MP, BNP ####[facility] [address] [place], [place] [address]Dr. Airam Tripathi Anion gap [Moles/Vol] 10.4 mmol/L Normal [facility] Comment on above: Performed By: #### C MP, BNP ####[facility] [address] [place], [place] [address]Dr. Airam Tripathi AST [Catalytic activity/Vol] 20 U/L Normal 15-37 [facility] Comment on above: Performed By: #### C MP, BNP ####[facility] [address] [place], [place] [address]Dr. Airam Tripathi Bilirubin [Mass/Vol] 0.2 mg/dL Normal 0.2-1.0 [facility] Comment on above: Performed By: #### C MP, BNP ####[facility] [address] [place], [place] [address]Dr. Airam Tripathi Calcium [Mass/Vol] 8.0 mg/dL Critically low 8.5-10.1 [facility] Comment on above: Performed By: #### C MP, BNP ####[facility] [address] [place], [place] [address]Dr. Selenaneil Tripathi Chloride [Moles/Vol] 100 mmol/L Normal 98-107 [facility] Comment on above: Performed By: #### C MP, BNP ####[facility] [address] [place], [place] [address]Dr. Airam Tripathi CO2 [Moles/Vol] 28.6 mmol/L Normal 21.0-32.0 [facility] Comment on above: Performed By: #### C MP, BNP ####[facility] [address] [place], [place] [address]Dr. Airam Tripathi Creatinine [Mass/Vol] 1.66 mg/dL Critically high 0.55-1.02 [facility] Comment on above: Performed By: #### C MP, BNP ####[facility] [address] [place], [place] [address]Dr. Airam Tripathi EGFR-AF LATVIAN 38 mL/min/1.73m2 Critically low >=60 [facility] Comment on above: Performed By: #### C MP, BNP ####[facility] [id number] [place] [id number]. Airam Tripathi EGFR-NON AF LATVIAN 32 mL/min/1.73m2 Critically low >=60 [facility] Comment on above: Performed By: #### C MP, BNP ####[facility] [id number] [place], [place] [address]Dr. Airam Tripathi Globulin (S) [Mass/Vol] 2.8 g/dL Normal [facility] Comment on above: Performed By: #### C MP, BNP ####[facility] [id number] [place], [place] [address]Dr. Airam Tripathi Glucose [Mass/Vol] 102 mg/dL Normal 74-106 [facility] Comment on above: Performed By: #### C MP, BNP ####[facility] Zhrjomzwaq[address] [place], [place] [address]Dr. Airam Tripathi Potassium [Moles/Vol] 5.0 mmol/L Normal 3.5-5.1 [facility] Comment on above: Performed By: #### C MP, BNP ####[facility] Juugtirapa[address] [place], [place] [address]Dr. Airam Tripathi Protein [Mass/Vol] 5.3 g/dL Critically low 6.4-8.2 [facility] Comment on above: Performed By: #### C MP, BNP ####[facility] Tuuhzwhcnz[address] [place], [place] [address]Dr. Airam Tripathi Sodium [Moles/Vol] 134 mmol/L Critically low 136-145 [facility] Comment on above: Performed By: #### C MP, BNP ####[facility] Hyzgbjdjol8[address] [place], [place] [address]Dr. Airam Tripathi Urea nitrogen [Mass/Vol] 45.0 mg/dL Critically high 7.0-18.0 [facility] Comment on above: Performed By: #### C MP, BNP ####[facility] Kouudmdlkv020[address] [place], [place] [address]Dr. Airam Tripathi Urea nitrogen/Creatinine [Mass ratio] 27.1 mg/mg Normal [facility] Comment on above: Performed By: #### C MP, BNP ####[facility] [address]ca[address] [place] [address]Dr. Airam Tripathi BNPon 10-25-2022 Natriuretic peptide B (Bld) [Mass/Vol] 4569.0 pg/mL Critically high <=900.0 [facility] Comment on above: Performed By: #### C MP, BNP ####[facility] Xlmrgjklsm242[address] [place], [place] [address]Dr. Airam Tripathi CBC AUTO DIFFon 10-25-2022 BASO # 0.0 103/ul Normal 0.0-0.1 [facility] Comment on above: Performed By: #### C BC ####[facility] Qdasbiwtvy8838[address] [place], [place] [address]Dr. Airam Tripathi Basophils/100 WBC (Bld) 0.5 % Normal 0.2-2.0 [facility] Comment on above: Performed By: #### C BC ####[facility] Zjutiprdmk4[address] [place], [place] [address]DrKianna Tripathi EO # 0.3 103/ul Normal 0.0-0.7 [facility] Comment on above: Performed By: #### C BC ####[facility] Stwpecougq3[address] [place], [place] [address]DrKianna Tripathi Eosinophils/100 WBC (Bld) 5.6 % Normal 0.9-7.0 [facility] Comment on above: Performed By: #### C BC ####[facility] Snlcqjwect954[address] [place], [place] [address]DrKianna Tripathi Erythrocyte distribution width (RBC) [Ratio] 15.7 % Critically high 11.0-15.0 [facility] Comment on above: Performed By: #### C BC ####[facility] Jlylomdiaf9[address] [place], [place] [address]DrKianna Tripathi Hematocrit (Bld) [Volume fraction] 30.1 % Critically low 36.0-48.0 [facility] Comment on above: Performed By: #### C BC ####[facility] Egiyaoerls[address] [place], [place] [address]DrKianna Tripathi Hemoglobin (Bld) [Mass/Vol] 9.2 g/dL Critically low 12.0-16.0 [facility] Comment on above: Performed By: #### C BC ####[facility] [address]avksbbk[address] [place] [address]DrKianna Tripathi IG # 0.03 10e3/ul Normal 0.00-0.03 [facility] Comment on above: Performed By: #### C BC ####[facility] Zmgzdimlax25[address] [place] [address]DrKianna Tripathi IG % 0.5 % Normal 0.0-0.5 [facility] Comment on above: Performed By: #### C BC ####[facility] Hkmieiworp954[address] [place], [place] [address]DrKianna Tripathi LYMPH # 1.7 103/ul Normal 1.2-3.8 [facility] Comment on above: Performed By: #### C BC ####[facility] Lklnssxmmg9213[address] [place], [place] [address]DrKianna Tripathi Lymphocytes/100 WBC (Bld) 28.9 % Normal 20.5-60.0 [facility] Comment on above: Performed By: #### C BC ####[facility] Hlwkiaeuix[address] [place], [place] [address]DrKianna Selenaneil Tripathi MANUAL DIFF REQ NO Normal [facility] Comment on above: Performed By: #### C BC ####[facility] Ovqkwjzogz9137[address] [place], [place] [address]DrKianna Tripathi MCH (RBC) [Entitic mass] 28.4 pg Normal 26.7-34.0 [facility] Comment on above: Performed By: #### C BC ####[facility] Tumaiapnmn743[address] [place], [place] [address]DrKianna Tripathi MCHC (RBC) [Mass/Vol] 30.6 g/dL Normal 29.9-35.2 [facility] Comment on above: Performed By: #### C BC ####[facility] Npfbqdetny68[address] [place], [place] [address]DrKianna Tripathi MCV (RBC) [Entitic vol] 92.9 fL Normal 81.0-99.0 [facility] Comment on above: Performed By: #### C BC ####[facility] Sjahspebvp44[address] [place], [place] [address]DrKianna Airam Tripathi MONO # 0.5 103/ul Normal 0.3-0.8 [facility] Comment on above: Performed By: #### C BC ####[facility] Pxluifhqzi4167[address] [place], [place] [address]DrKianna Airam Deuce Monocytes/100 WBC (Bld) 8.5 % Normal 1.7-12.0 [facility] Comment on above: Performed By: #### C BC ####[facility] Kgqbbppjyv8558[address] [place], [place] [address]DrKianna Airam Tripathi NEUT # 3.2 103/ul Normal 1.4-6.5 [facility] Comment on above: Performed By: #### C BC ####[facility] Puuctgtdbv6448[address] [place], [place] [address]DrKianna Airam Deuce Neutrophils/100 WBC (Bld) 56.0 % Normal 43.0-75.0 [facility] Comment on above: Performed By: #### C BC ####[facility] Sbbkjmvlew05[address] [place], [place] [address]DrKianna Airam Deuce Platelet mean volume (Bld) [Entitic vol] 9.4 fL Critically low 9.5-13.5 [facility] Comment on above: Performed By: #### C BC ####[facility] Bdifwoebxg5625[address] [place], [place] [address]DrKianna Airam Deuce PLT 272 103/ul Normal 150-450 [facility] Comment on above: Performed By: #### C BC ####[facility] Tgyxxmwaci588[address] [place], [place] [address]DrKianna Tripathi RBC 3.24 106/ul Critically low 4.20-5.40 [facility] Comment on above: Performed By: #### C BC ####[facility] Lzffvwfeyy8748[address] [place], [place] [address]DrKianna Tripathi WBC 5.8 103/ul Normal 4.0-11.0 [facility] Comment on above: Performed By: #### C BC ####[facility] [address]pbzlu[address] [place] [address]Dr. Airam Tripathi OSMOLALITYon 10-25-2022 Osmolality [Osmolality] 282 mosm/kg Normal 275-295 [facility] Comment on above: Performed By: #### O SMO ####[facility] Udsctcndox[address] [place], [place] [address]Dr. Airam Tripathi PROF 14(COMP METB)on 023 Albumin [Mass/Vol] 2.7 g/dL Critically low 3.4-5.0 [facility] Comment on above: Performed By: #### C MP, BNP ####[facility] Mfvndwhszb749[address] [place], [place] [address]Dr. Airam Tripathi Albumin/Globulin [Mass ratio] 0.9 {ratio} Normal [facility] Comment on above: Performed By: #### C MP, BNP ####[facility] Uhhwhkoigs4558[address] [place], [place] [address]Dr. Airam Tripathi ALP [Catalytic activity/Vol] 122 U/L Critically high 46-116 [facility] Comment on above: Performed By: #### C MP, BNP ####[facility] Afttdcayos8755[address] [place], [place] [address]Dr. Airam Tripathi ALT [Catalytic activity/Vol] 23 U/L Normal 14-59 [facility] Comment on above: Performed By: #### C MP, BNP ####[facility] Gzrjbbjffx6[address] [place], [place] [address]Dr. Airam Tripathi Anion gap [Moles/Vol] 10.5 mmol/L Normal [facility] Comment on above: Performed By: #### C MP, BNP ####[facility] Uyakyihscy2830[address] [place], [place] [address]Dr. Airam Tripathi AST [Catalytic activity/Vol] 22 U/L Normal 15-37 [facility] Comment on above: Performed By: #### C MP, BNP ####[facility] Gglprrtuzu3468[address] [place], [place] [address]Dr. Airam Tripathi Bilirubin [Mass/Vol] 0.2 mg/dL Normal 0.2-1.0 [facility] Comment on above: Performed By: #### C MP, BNP ####[facility] Ozolpayphd59[address] [place], [place] [address]Dr. Airam Tripathi Calcium [Mass/Vol] 8.3 mg/dL Critically low 8.5-10.1 Th e [facility] Comment on above: Performed By: #### C MP, BNP ####[facility] Lwxhyxitgt0210[address] [place], [place] [address]Dr. Airam Tripathi Chloride [Moles/Vol] 102 mmol/L Normal 98-107 [facility] Comment on above: Performed By: #### C MP, BNP ####[facility] Valnugouoo7520[address] [place], [place] [address]Dr. Airam Tripathi CO2 [Moles/Vol] 29.7 mmol/L Normal 21.0-32.0 [facility] Comment on above: Performed By: #### C MP, BNP ####[facility] Pgjggalisk280[address] [place], [place] [address]Dr. Airam Tripathi Creatinine [Mass/Vol] 1.31 mg/dL Critically high 0.55-1.02 [facility] Comment on above: Performed By: #### C MP, BNP ####[facility] Xrcqbexvhn5054[address] [place], [place] [address]Dr. Airam Tripathi EGFR-AF LATVIAN 50 mL/min/1.73m2 Critically low >=60 [facility] Comment on above: Performed By: #### C MP, BNP ####[facility] Uikklromap22224[address] [place], [place] [address]Dr. Airam Tripathi EGFR-NON AF LATVIAN 41 mL/min/1.73m2 Critically low >=60 [facility] Comment on above: Performed By: #### C MP, BNP ####[facility] Nqiptlxrhw54[address] [place], [place] [address]Dr. Airam Tripathi Globulin (S) [Mass/Vol] 2.9 g/dL Normal [facility] Comment on above: Performed By: #### C MP, BNP ####[facility] Ieqtxocduv[address] [place] [address]Dr. Airam Tripathi Glucose [Mass/Vol] 94 mg/dL Normal 74-106 [facility] Comment on above: Performed By: #### C MP, BNP ####[facility] Fuitcnvddo2914[address] [place], [place] [address]Dr. Airam Tripathi Potassium [Moles/Vol] 4.2 mmol/L Normal 3.5-5.1 [facility] Comment on above: Performed By: #### C MP, BNP ####[facility] Rnvcypcatp364[address] [place], [place] [address]Dr. Airam Tripathi Protein [Mass/Vol] 5.6 g/dL Critically low 6.4-8.2 [facility] Comment on above: Performed By: #### C MP, BNP ####[facility] Trpnkeskwi039[address] [place], [place] [address]Dr. Airam Tripathi Sodium [Moles/Vol] 138 mmol/L Normal 136-145 [facility] Comment on above: Performed By: #### C MP, BNP ####[facility] Oyanglhuig[address] [place], [place] [address]Dr. Airam Tripathi Urea nitrogen [Mass/Vol] 33.0 mg/dL Critically high 7.0-18.0 [facility] Comment on above: Performed By: #### C MP, BNP ####[facility] Myqgekwrpn5974[address] [place], [place] [address]Dr. Airam Tripathi Urea nitrogen/Creatinine [Mass ratio] 25.2 mg/mg Normal [facility] Comment on above: Performed By: #### C MP, BNP ####[facility] Cmedmzvmce6307[address] [place], [place] [address]Dr. Airam Tripathi BNPon 10-24-2022 Natriuretic peptide B (Bld) [Mass/Vol] 3805.0 pg/mL Critically high <=900.0 [facility] Comment on above: Performed By: #### H STROPN, BNP, CMP ####[facility] Wjepphcink7977[address] [place], [place] [address]Dr. Airam Tripathi CBC AUTO DIFFon 10-24-2022 BASO # 0.0 103/ul Normal 0.0-0.1 [facility] Comment on above: Performed By: #### C BC ####[facility] Xwpabiegqc67[address] [place] [address]Dr. Airam Tripathi Basophils/100 WBC (Bld) 0.3 % Normal 0.2-2.0 [facility] Comment on above: Performed By: #### C BC ####[facility] Rqrkuymtcp3974[address] [place], [place] [address]Dr. Selenaneil Tripathi EO # 0.3 103/ul Normal 0.0-0.7 [facility] Comment on above: Performed By: #### C BC ####[facility] Qiukdlqspq8194[address] [place], [place] [address]Dr. Airam Tripathi Eosinophils/100 WBC (Bld) 4.2 % Normal 0.9-7.0 [facility] Comment on above: Performed By: #### C BC ####[facility] Lfvpmyokck893[address] [place], [place] [address]Dr. Airam Deuce Erythrocyte distribution width (RBC) [Ratio] 15.6 % Critically high 11.0-15.0 [facility] Comment on above: Performed By: #### C BC ####[facility] Epturjwxel5935[address] [place], [place] [address]Dr. Airam Tripathi Hematocrit (Bld) [Volume fraction] 30.0 % Critically low 36.0-48.0 [facility] Comment on above: Performed By: #### C BC ####[facility] Gyekffhlwr230[address] [place], [place] [address]Dr. Selenaneil Tripathi Hemoglobin (Bld) [Mass/Vol] 9.3 g/dL Critically low 12.0-16.0 [facility] Comment on above: Performed By: #### C BC ####[facility] Mxdpktwsry8369[address] [place], [place] [address]Dr. Airam Tripathi IG # 0.03 10e3/ul Normal 0.00-0.03 [facility] Comment on above: Performed By: #### C BC ####[facility] Mdgpjtcbyf[address] [place], [place] [address]Dr. Airam Tripathi IG % 0.5 % Normal 0.0-0.5 [facility] Comment on above: Performed By: #### C BC ####[facility] Q[address]zckduul[address] [place] [address]Dr. Airam Tripathi LYMPH # 1.4 103/ul Normal 1.2-3.8 [facility] Comment on above: Performed By: #### C BC ####[facility] Lhifvpnjtz6[address] [place] [address]Dr. Airam Tripathi Lymphocytes/100 WBC (Bld) 22.5 % Normal 20.5-60.0 [facility] Comment on above: Performed By: #### C BC ####[facility] Kjypgktywx899[address] [place], [place] [address]DrKianna Tripathi MANUAL DIFF REQ NO Normal [facility] Comment on above: Performed By: #### C BC ####[facility] Sklzaynadf[address]39[address] [place], [place] [address]Dr. Selenaneil Tripathi MCH (RBC) [Entitic mass] 28.7 pg Normal 26.7-34.0 [facility] Comment on above: Performed By: #### C BC ####[facility] Koqepzsihi[address] [place], [place] [address]Dr. Selenaneil Tripathi MCHC (RBC) [Mass/Vol] 31.0 g/dL Normal 29.9-35.2 [facility] Comment on above: Performed By: #### C BC ####[facility] Mniigldegc[address] [place], [place] [address]DrKianna Tripathi MCV (RBC) [Entitic vol] 92.6 fL Normal 81.0-99.0 [facility] Comment on above: Performed By: #### C BC ####[facility] Yarljlxkzx9460[address] [place], [place] [address]DrKianna Tripathi MONO # 0.4 103/ul Normal 0.3-0.8 [facility] Comment on above: Performed By: #### C BC ####[facility] Aaqilurchj0908[address] [place], [place] [address]DrKianna Tripathi Monocytes/100 WBC (Bld) 7.3 % Normal 1.7-12.0 [facility] Comment on above: Performed By: #### C BC ####[facility] [address]wnfjxsnb[address] [place] [id number]. Airam Tripathi NEUT # 3.9 103/ul Normal 1.4-6.5 [facility] Comment on above: Performed By: #### C BC ####[facility] E[address]ctvdxdz37[address] [place] [id number] Airam Tripathi Neutrophils/100 WBC (Bld) 65.2 % Normal 43.0-75.0 [facility] Comment on above: Performed By: #### C BC ####[facility] Yfwurhuyet[address] [place] [address]DrKianna Airam Tripathi Platelet mean volume (Bld) [Entitic vol] 9.0 fL Critically low 9.5-13.5 [facility] Comment on above: Performed By: #### C BC ####[facility] Z[address]hzpnj[address] [place], [place] [address]Dr. Airam Tripathi PLT 247 103/ul Normal 150-450 [facility] Comment on above: Performed By: #### C BC ####[facility] Mthvhzpidy[address] [place], [place] [address]DrKianna Airam Tripathi RBC 3.24 106/ul Critically low 4.20-5.40 [facility] Comment on above: Performed By: #### C BC ####[facility] Cmnawqvduj[address] [place], [place] [address]DrKianna Airam Deuce WBC 6.0 103/ul Normal 4.0-11.0 [facility] Comment on above: Performed By: #### C BC ####[facility] [address]wiiq[address] [place], [place] [address]DrKianna Airam Deuce CULTURE URINEon 10-24-2022 CULTURE URINE Culture Observations : LIGHT GROWTH OF MIXED GENITAL GREGORY. NO POTENTIAL PATHOGENS SEEN. Normal [facility] Comment on above: Performed By: #### U RCX ####[facility] [address]hltesx[address] [place], [place] [address]DrKianna Tripathi POINT OF CARE GLUCOSEon Glucose [Mass/Vol] 118 mg/dL Critically high 74-106 [facility] Comment on above: Performed By: #### P OCGLUC ####[facility] Mrvqfpvccl[address] [place] [address]Dr. Airam Tripathi PROF 14(COMP METB)on 023 Albumin [Mass/Vol] 3.1 g/dL Critically low 3.4-5.0 [facility] Comment on above: Performed By: #### H STROPN, BNP, CMP ####[facility] Ojyrgsobcl75[address] [place] [address]Dr. Airam Tripathi Albumin/Globulin [Mass ratio] 1.0 {ratio} Normal [facility] Comment on above: Performed By: #### H STROPN, BNP, CMP ####[facility] Prew[address]ynuuf[address] [place] [address]Dr. Airam Tripathi ALP [Catalytic activity/Vol] 131 U/L Critically high 46-116 [facility] Comment on above: Performed By: #### H STROPN, BNP, CMP ####[facility] Kxcokjlljh8[address] [place] [address]Dr. Airam Tripathi ALT [Catalytic activity/Vol] 26 U/L Normal 14-59 [facility] Comment on above: Performed By: #### H STROPN, BNP, CMP ####[facility] Wzivmahaeh30[address] [place] [address]Dr. Airam Tripathi Anion gap [Moles/Vol] 11.2 mmol/L Normal [facility] Comment on above: Performed By: #### H STROPN, BNP, CMP ####[facility] Wuoyffjdye34[address] [place] [address]Dr. Airam Tripathi AST [Catalytic activity/Vol] 31 U/L Normal 15-37 [facility] Comment on above: Performed By: #### H STROPN, BNP, CMP ####[facility] Ttvswxtopc68[address] [place] [address]Dr. Airam Tripathi Bilirubin [Mass/Vol] 0.2 mg/dL Normal 0.2-1.0 [facility] Comment on above: Performed By: #### H STROPN, BNP, CMP ####[facility] Yfqxfzgaho[address] [place] [address]Dr. Airam Tripathi Calcium [Mass/Vol] 8.6 mg/dL Normal 8.5-10.1 [facility] Comment on above: Performed By: #### H STROPN, BNP, CMP ####[facility] Fjpmaupqqo80[address] [place] [address]Dr. Airam Tripathi Chloride [Moles/Vol] 102 mmol/L Normal 98-107 [facility] Comment on above: Performed By: #### H STROPN, BNP, CMP ####[facility] G[address]fftfug8[address] [place], [place] [address]Dr. Airam Tripathi CO2 [Moles/Vol] 27.4 mmol/L Normal 21.0-32.0 [facility] Comment on above: Performed By: #### H STROPN, BNP, CMP ####[facility] Hkphbspbuz[address] [place], [place] [address]Dr. Airam Tripathi Creatinine [Mass/Vol] 1.23 mg/dL Critically high 0.55-1.02 [facility] Comment on above: Performed By: #### H STROPN, BNP, CMP ####[facility] W[address]mmkkggd64[address] [place], [place] [address]Dr. Airam Tripathi EGFR-AF LATVIAN 54 mL/min/1.73m2 Critically low >=60 [facility] Comment on above: Performed By: #### H STROPN, BNP, CMP ####[facility] Xjpfnsgdyi[address] [place], [place] [address]Dr. Airam Tripathi EGFR-NON AF LATVIAN 45 mL/min/1.73m2 Critically low >=60 [facility] Comment on above: Performed By: #### H STROPN, BNP, CMP ####[facility] Sfvpibkope[address] [place], [place] [address]Dr. Airam Tripathi Globulin (S) [Mass/Vol] 3.1 g/dL Normal [facility] Comment on above: Performed By: #### H STROPN, BNP, CMP ####[facility] Kxuiklehar[address] [place] [address]Dr. Airam Tripathi Glucose [Mass/Vol] 90 mg/dL Normal 74-106 [facility] Comment on above: Performed By: #### H STROPN, BNP, CMP ####[facility] [address]wpeqognk4[address] [place] [address]Dr. Airam Tripathi Potassium [Moles/Vol] 5.6 mmol/L Critically high 3.5-5.1 [facility] Comment on above: Performed By: #### H STROPN, BNP, CMP ####[facility] Yokkbbreev36[address] [place] [address]Dr. Airam Tripathi Protein [Mass/Vol] 6.2 g/dL Critically low 6.4-8.2 [facility] Comment on above: Performed By: #### H STROPN, BNP, CMP ####[facility] Nxrytwnwml6066 [place] [address]Dr. Airam Tripathi Sodium [Moles/Vol] 135 mmol/L Critically low 136-145 [facility] Comment on above: Performed By: #### H STROPN, BNP, CMP ####[facility] U[address]tbwlwmh3[address] [place] [address]Dr. Airam Tripathi Urea nitrogen [Mass/Vol] 38.0 mg/dL Critically high 7.0-18.0 [facility] Comment on above: Performed By: #### H STROPN, BNP, CMP ####[facility] Tvxsutotrj[address] [place] [address]Dr. Airam Tripathi Urea nitrogen/Creatinine [Mass ratio] 30.9 mg/mg Normal [facility] Comment on above: Performed By: #### H STROPN, BNP, CMP ####[facility] Cqdaqmqplg[address] [place] [address]Dr. Airam Tripathi TROPONIN, HIGH SENSITIVITYon 10-24-2022 HSTROP 8.0 pg/mL Normal 4.0-51.3 [facility] Comment on above: Result Comment: CUT- OFF POINTS HAVE BEEN ESTABLISHED BASED ON THE FOURTH UNIVERSAL DEFINITIONS OF MYOCARDIALINFARCTION. THE UPPER REFERENCE LIMIT (URL) OF TROPONIN, DEFINED THE 99TH PERCENTILE OFcTnI DISTRIBUTION IN A REFERENCE POPULATION, HAS BEEN CONFIRMED THE DECISION THRESHOLDFOR WA DIAGNOSIS. Performed By: #### H STROPN, BNP, CMP ####[facility] Amiihbyipy[address] [place] [address]Dr. Airam Tripathi UA RANDOM W/MICROSCOPICon BACTERIA NONE SEEN Normal NONE SEEN [facility] Comment on above: Performed By: #### U AMIC ####[facility] Ehmmtsbmua[address] [place], [place] [address]Dr. Airam Tripathi Bilirubin Ql (U) Negative Normal NEGATIVE [facility] Comment on above: Performed By: #### U AMIC ####[facility] Dtwkerssco9[address] [place], [place] [address]Dr. Airam Tripathi CAST NONE SEEN Normal NONE SEEN [facility] Comment on above: Performed By: #### U AMIC ####[facility] Duygooajrn[address] [place], [place] [address]Dr. Airam Tripathi Clarity (U) CLEAR Normal CLEAR [facility] Comment on above: Performed By: #### U AMIC ####[facility] Wxqnyknigx[address] [place], [place] [address]Dr. Airam Tripathi Color (U) LT. YELLOW Normal YELLOW [facility] Comment on above: Performed By: #### U AMIC ####[facility] Swfmgtqamw[address] [place], [place] [address]Dr. Airam Tripathi Crystals LM Nom (Urine sed) NONE SEEN Normal NONE SEEN [facility] Comment on above: Performed By: #### U AMIC ####[facility] Srrivohxpl[address] [place], [place] [address]Dr. Airam Tripathi Epithelial cells LM Ql (Urine sed) RARE Normal NONE SEEN /RARE [facility] Comment on above: Performed By: #### U AMIC ####[facility] Y[address]ppulwyop[address] [place], [place] [address]Dr. Airam Tripathi Glucose Ql (U) Negative Normal NEGATIVE [facility] Comment on above: Performed By: #### U AMIC ####[facility] Igkdnmduyj[address] [place], [place] [address]Dr. Airam Tripathi Hemoglobin Ql (U) Negative Normal NEGATIVE [facility] Comment on above: Performed By: #### U AMIC ####[facility] [address]avhyjdmv[address] [place], [place] [address]Dr. Airam Tripathi Ketones Ql (U) Negative Normal NEGATIVE [facility] Comment on above: Performed By: #### U AMIC ####[facility] Msdsrherdg[address] [place], [place] [address]Dr. Airam Tripathi LEUKOCYTES Negative Normal NEGATIVE [facility] [facility] Comment on above: Performed By: #### U AMIC ####[facility] S[address]lfcksck[address] [place], [place] [address]Dr. Airam Deuce MUCOUS NONE SEEN Normal NONE SEEN [facility] Comment on above: Performed By: #### U AMIC ####[facility] Gnisgsftdz8[address] [place], [place] [address]Dr. Airam Tripathi Nitrite Ql (U) Negative Normal NEGATIVE [facility] Comment on above: Performed By: #### U AMIC ####[facility] Fpgsippchd[address] [place], [place] [address]Dr. Selenaneil Tripathi pH (U) 7.0 [pH] Normal 5-9 [facility] Comment on above: Performed By: #### U AMIC ####[facility] Pieckwgirw[address] [place], [place] [address]Dr. Airam Tripathi RBC 0-2 Normal 0-2 [facility] Comment on above: Performed By: #### U AMIC ####[facility] Hlgrsvkyxe[address] [place], [place] [address]Dr. Airam Tripathi SPEC GRAVITY 1.015 Normal 1.005-<=1.02 5 [facility] Comment on above: Performed By: #### U AMIC ####[facility] F[address]rsfmdubo[address] [place], [place] [address]Dr. Airam Tripathi UA PROTEIN Negative Normal NEGATIVE/ TRACE [facility] Comment on above: Performed By: #### U AMIC ####[facility] Hiqwjlhoyw[address] [place], [place] [address]Dr. Airam Tripathi Urobilinogen Qn (U) 0.2 {Ligia'U}/dL Normal 0.2 - 1. 0 [facility] Comment on above: Performed By: #### U AMIC ####[facility] [address] [place] [address]Dr. Airam Tripathi WBC NONE SEEN Normal NONE SEEN The [facility] Comment on above: Performed By: #### U AMIC ####[facility] Ndwbhkjeot[address] [place] [address]Dr. Airam Tripathi XR CHEST 1 Von 10-24-2022 XR CHEST 1 V Normal [facility] CBC AUTO DIFFon 10-19-2022 BASO # 0.0 103/ul Normal 0.0-0.1 [facility] Comment on above: Performed By: #### C BC ####[facility] Aceijzdhes[address] [place], [place] [address]Dr. Airam Tripathi Basophils/100 WBC (Bld) 0.5 % Normal 0.2-2.0 [facility] Comment on above: Performed By: #### C BC ####[facility] Panfeehiil[address] [place], [place] [address]Dr. Airam Tripathi EO # 0.3 103/ul Normal 0.0-0.7 [facility] Comment on above: Performed By: #### C BC ####[facility] Fpykwfmkbs92[address] [place], [place] [address]Dr. Selenaneil Tripathi Eosinophils/100 WBC (Bld) 3.3 % Normal 0.9-7.0 [facility] Comment on above: Performed By: #### C BC ####[facility] Pwnwnkybcb[address] [place], [place] [address]Dr. Airam Tripathi Erythrocyte distribution width (RBC) [Ratio] 15.0 % Normal 11.0-15.0 [facility] Comment on above: Performed By: #### C BC ####[facility] Xwejmyhslw[address] [place], [place] [address]Dr. Airam Tripathi Hematocrit (Bld) [Volume fraction] 32.9 % Critically low 36.0-48.0 [facility] Comment on above: Performed By: #### C BC ####[facility] [address]gfspmq[address] [place] [address]Dr. Airam Tripathi Hemoglobin (Bld) [Mass/Vol] 10.1 g/dL Critically low 12.0-16.0 [facility] Comment on above: Performed By: #### C BC ####[facility] Zgzmrjegor34[address] [place] [address]Dr. Airam Tripathi IG # 0.04 10e3/ul Critically high 0.00-0.03 [facility] Comment on above: Performed By: #### C BC ####[facility] Rujpedjqot9[address] [place], [place] [address]Dr. Airam Tripathi IG % 0.5 % Normal 0.0-0.5 [facility] Comment on above: Performed By: #### C BC ####[facility] Qsfhcidzqm[address] [place], [place] [address]Dr. Selenaneil Tripathi LYMPH # 1.5 103/ul Normal 1.2-3.8 [facility] Comment on above: Performed By: #### C BC ####[facility] Spvladeifa[address] [place], [place] [address]Dr. Airam Tripathi Lymphocytes/100 WBC (Bld) 18.1 % Critically low 20.5-60.0 [facility] Comment on above: Performed By: #### C BC ####[facility] Wjjmyfbbnj[address] [place], [place] [address]Dr. Selenaneil Tripathi MANUAL DIFF REQ NO Normal [facility] Comment on above: Performed By: #### C BC ####[facility] [address]zfzqvqqz[address] [place], [place] [address]Dr. Airam Tripathi MCH (RBC) [Entitic mass] 28.3 pg Normal 26.7-34.0 [facility] Comment on above: Performed By: #### C BC ####[facility] Puwbpxpqsd12[address] [place], [place] [address]Dr. Airam Tripathi MCHC (RBC) [Mass/Vol] 30.7 g/dL Normal 29.9-35.2 [facility] Comment on above: Performed By: #### C BC ####[facility] [address]nopbxt[address] [place] [id number]. Airam Tripathi MCV (RBC) [Entitic vol] 92.2 fL Normal 81.0-99.0 [facility] Comment on above: Performed By: #### C BC ####[facility] Plhkppusjd36[address] [place] [id number]. Airam Tripathi MONO # 0.7 103/ul Normal 0.3-0.8 [facility] Comment on above: Performed By: #### C BC ####[facility] Aivczchwlm8186 [place] [id number]. Airam Tripathi Monocytes/100 WBC (Bld) 7.7 % Normal 1.7-12.0 [facility] Comment on above: Performed By: #### C BC ####[facility] [address] [place], [place] [id number]. Airam Tripathi NEUT # 5.9 103/ul Normal 1.4-6.5 [facility] Comment on above: Performed By: #### C BC ####[facility] Kimxpvixgk90[address] [place] [id number]. Airam Tripathi Neutrophils/100 WBC (Bld) 69.9 % Normal 43.0-75.0 [facility] Comment on above: Performed By: #### C BC ####[facility] Xzfblxwcbq25[address] [place] [id number]. Airam Tripathi Platelet mean volume (Bld) [Entitic vol] 9.3 fL Critically low 9.5-13.5 [facility] Comment on above: Performed By: #### C BC ####[facility] Spevnobspy[address] [place] [id number]. Airam Tripathi PLT 293 103/ul Normal 150-450 [facility] Comment on above: Performed By: #### C BC ####[facility] Tgmiudrdrv7936 [place] [id number]. Airam Tripathi RBC 3.57 106/ul Critically low 4.20-5.40 [facility] Comment on above: Performed By: #### C BC ####[facility] Mulprweyvq[address] [place] [address]Dr. Airam Tripathi WBC 8.4 103/ul Normal 4.0-11.0 [facility] Comment on above: Performed By: #### C BC ####[facility] Iadkifqsdq5574[address] [place], [place] [address]Dr. Airam Tripathi PROF 14(COMP METB)on 023 Albumin [Mass/Vol] 3.1 g/dL Critically low 3.4-5.0 [facility] Comment on above: Performed By: #### C MP ####[facility] Krgaydaegs23[address] [place], [place] [address]Dr. Airam Tripathi Albumin/Globulin [Mass ratio] 0.9 {ratio} Normal [facility] Comment on above: Performed By: #### C MP ####[facility] Fyfjxspauw5[address] [place], [place] [address]Dr. Airam Tripathi ALP [Catalytic activity/Vol] 117 U/L Critically high 46-116 [facility] Comment on above: Performed By: #### C MP ####[facility] Xskwcmmswb8[address] [place], [place] [address]Dr. Airam Tripathi ALT [Catalytic activity/Vol] 24 U/L Normal 14-59 [facility] Comment on above: Performed By: #### C MP ####[facility] Qyzdcslchq[address] [place], [place] [address]Dr. Airam Tripathi Anion gap [Moles/Vol] 11.1 mmol/L Normal [facility] Comment on above: Performed By: #### C MP ####[facility] Ipnuyxvfez[address] [place], [place] [address]Dr. Airam Tripathi AST [Catalytic activity/Vol] 22 U/L Normal 15-37 [facility] Comment on above: Performed By: #### C MP ####[facility] Yrpqldnbvh4[address] [place], [place] [address]Dr. Airam Tripathi Bilirubin [Mass/Vol] 0.2 mg/dL Normal 0.2-1.0 [facility] Comment on above: Performed By: #### C MP ####[facility] [address]obsn[address] [place] [id number]. Airam Tripathi Calcium [Mass/Vol] 8.4 mg/dL Critically low 8.5-10.1 [facility] Comment on above: Performed By: #### C MP ####[facility] Orgfuzhvyg34[address] [place] [id number]. Airam Tripathi Chloride [Moles/Vol] 103 mmol/L Normal 98-107 [facility] Comment on above: Performed By: #### C MP ####[facility] Znjpbmtdqg6396 [place] [address]Dr. Airam Tripathi CO2 [Moles/Vol] 25.0 mmol/L Normal 21.0-32.0 [facility] Comment on above: Performed By: #### C MP ####[facility] Qbnunocnuc[address] [place], [place] [address]Dr. Airam Tripathi Creatinine [Mass/Vol] 1.27 mg/dL Critically high 0.55-1.02 [facility] Comment on above: Performed By: #### C MP ####[facility] Ystxbvnwmf60[address] [place] [id number]. Airam Tripathi EGFR-AF LATVIAN 52 mL/min/1.73m2 Critically low >=60 [facility] Comment on above: Performed By: #### C MP ####[facility] Waowrwyyvo85[address] [place], [place] [address]Dr. Airam Tripathi EGFR-NON AF LATVIAN 43 mL/min/1.73m2 Critically low >=60 [facility] Comment on above: Performed By: #### C MP ####[facility] Ekpsnjepsq75[address] [place] [id number]. Airam Tripathi Globulin (S) [Mass/Vol] 3.3 g/dL Normal [facility] Comment on above: Performed By: #### C MP ####[facility] R[address]ihlxlvc[address] [place] [address]Dr. Airam Tripathi Glucose [Mass/Vol] 90 mg/dL Normal 74-106 [facility] Comment on above: Performed By: #### C MP ####[facility] Vjxjmjhhpj15[address] [place] [address]Dr. Airam Tripathi Potassium [Moles/Vol] 5.1 mmol/L Normal 3.5-5.1 [facility] Comment on above: Performed By: #### C MP ####[facility] Jcgosguvbp47[address] [place] [address]Dr. Airam Tripathi Protein [Mass/Vol] 6.4 g/dL Normal 6.4-8.2 [facility] Comment on above: Performed By: #### C MP ####[facility] Xrrmhckdpa[address] [place], [place] [address]Dr. Airam Tripathi Sodium [Moles/Vol] 134 mmol/L Critically low 136-145 Th [facility] Comment on above: Performed By: #### C MP ####[facility] Ezetetaokn6[address] [place], [place] [address]Dr. Airam Tripathi Urea nitrogen [Mass/Vol] 33.0 mg/dL Critically high 7.0-18.0 [facility] Comment on above: Performed By: #### C MP ####[facility] Sadxxfcxpv3724[address] [place], [place] [address]Dr. Airam Tripathi Urea nitrogen/Creatinine [Mass ratio] 26.0 mg/mg Normal [facility] Comment on above: Performed By: #### C MP ####[facility] Q[address]vypzntj[address] [place], [place] [address]Dr. Airam Tripathi OSMOLALITYon 10-15-2022 Osmolality [Osmolality] 272 mosm/kg Critically low 275-295 [facility] Comment on above: Performed By: #### O SMO ####[facility] Wghgzvkjkd4[address] [place], [place] [address]Dr. Airam Tripathi BNPon 10-12-2022 Natriuretic peptide B (Bld) [Mass/Vol] 1337.0 pg/mL Critically high <=900.0 [facility] Comment on above: Performed By: #### B FEATHER MAKER ####[facility] Qhizkfsbbi[address] [place], [place] [address]Dr. Airam Tripathi CBC AUTO DIFFon 10-12-2022 BASO # 0.0 103/ul Normal 0.0-0.1 [facility] Comment on above: Performed By: #### C BC ####[facility] Ftaledjkzc[address] [place] [address]Dr. Airam Tripathi Basophils/100 WBC (Bld) 0.6 % Normal 0.2-2.0 [facility] Comment on above: Performed By: #### C BC ####[facility] Ewjycjupwa67[address] [place], [place] [address]Dr. Airam Tripathi EO # 0.2 103/ul Normal 0.0-0.7 [facility] Comment on above: Performed By: #### C BC ####[facility] Ytystlqztn13[address] [place], [place] [address]Dr. Airam Tripathi Eosinophils/100 WBC (Bld) 2.3 % Normal 0.9-7.0 [facility] Comment on above: Performed By: #### C BC ####[facility] Vnauuuzstv[address] [place], [place] [address]Dr. Airam Tripathi Erythrocyte distribution width (RBC) [Ratio] 15.1 % Critically high 11.0-15.0 [facility] Comment on above: Performed By: #### C BC ####[facility] Jcuhsiemul[address] [place], [place] [address]Dr. Airam Tripathi Hematocrit (Bld) [Volume fraction] 35.9 % Critically low 36.0-48.0 [facility] Comment on above: Performed By: #### C BC ####[facility] C[address]pawwzsk[address] [place], [place] [address]Dr. Airam Tripathi Hemoglobin (Bld) [Mass/Vol] 11.4 g/dL Critically low 12.0-16.0 [facility] Comment on above: Performed By: #### C BC ####[facility] Kbpkpzwyba[address] [place], [place] [address]Dr. Airam Tripathi IG # 0.03 10e3/ul Normal 0.00-0.03 [facility] Comment on above: Performed By: #### C BC ####[facility] Ojoqnqtxkz64[address] [place], [place] [address]Dr. Airam Tripathi IG % 0.5 % Normal 0.0-0.5 [facility] Comment on above: Performed By: #### C BC ####[facility] Ggqpndmbfr[address] [place] [address]DrKianna Tripathi LYMPH # 1.1 103/ul Critically low 1.2-3.8 [facility] Comment on above: Performed By: #### C BC ####[facility] Zboiqmvnst5[address] [place] [address]Dr. Airam Tripathi Lymphocytes/100 WBC (Bld) 17.2 % Critically low 20.5-60.0 [facility] Comment on above: Performed By: #### C BC ####[facility] Uxznfoigoy[address] [place] [address]DrKianna Tripathi MANUAL DIFF REQ NO Normal [facility] Comment on above: Performed By: #### C BC ####[facility] [address]vwjoptkbh[address] [place], [place] [address]Dr. Airam Tripathi MCH (RBC) [Entitic mass] 28.8 pg Normal 26.7-34.0 [facility] Comment on above: Performed By: #### C BC ####[facility] Jursekovnw[address] [place], [place] [address]Dr. Airam Tripathi MCHC (RBC) [Mass/Vol] 31.8 g/dL Normal 29.9-35.2 [facility] Comment on above: Performed By: #### C BC ####[facility] Scuftblwkm55[address] [place] [address]DrKianna Tripathi MCV (RBC) [Entitic vol] 90.7 fL Normal 81.0-99.0 [facility] Comment on above: Performed By: #### C BC ####[facility] R[address]zvhsxbk[address] [place], [place] [address]DrKianna Tripathi MONO # 0.5 103/ul Normal 0.3-0.8 [facility] Comment on above: Performed By: #### C BC ####[facility] Dghiuskoaj4908 [place] [address]DrKianna Tripathi Monocytes/100 WBC (Bld) 7.7 % Normal 1.7-12.0 [facility] Comment on above: Performed By: #### C BC ####[facility] Wgcvfqzsbo95[address] [place] [address]Dr. Airam Tripathi NEUT # 4.7 103/ul Normal 1.4-6.5 [facility] Comment on above: Performed By: #### C BC ####[facility] Eqlkchrdls4027 [place] [id number] Waltersneil Deuce Neutrophils/100 WBC (Bld) 71.7 % Normal 43.0-75.0 [facility] Comment on above: Performed By: #### C BC ####[facility] Loxlibiolu28[address] [place] [address]Dr. Airam Tripathi Platelet mean volume (Bld) [Entitic vol] 8.2 fL Critically low 9.5-13.5 [facility] Comment on above: Performed By: #### C BC ####[facility] Uswbhtykru57[address] [place] [address]Dr. Airam Tripathi PLT 292 103/ul Normal 150-450 [facility] Comment on above: Performed By: #### C BC ####[facility] Qnkldimexb4[address] [place], [place] [address]Dr. Airam Tripathi RBC 3.96 106/ul Critically low 4.20-5.40 [facility] Comment on above: Performed By: #### C BC ####[facility] Ytekqordwr[address] [place] [address]Dr. Airam Tripathi WBC 6.6 103/ul Normal 4.0-11.0 [facility] Comment on above: Performed By: #### C BC ####[facility] Uduxxwweqs1766 [place] [id number] Tripathi PROF 14(COMP METB)on 023 Albumin [Mass/Vol] 3.3 g/dL Critically low 3.4-5.0 Th [facility] Comment on above: Performed By: #### C MP ####[facility] Eimxboilav9091 [place] [address]DrKianna Tripathi Albumin/Globulin [Mass ratio] 0.9 {ratio} Normal [facility] Comment on above: Performed By: #### C MP ####[facility] Yvjlunhcet5435 [place] [address]Dr. Airam Deuce ALP [Catalytic activity/Vol] 130 U/L Critically high 46-116 [facility] Comment on above: Performed By: #### C MP ####[facility] Soqbqdlecn4340 [place] [address]Dr. Airam Deuce ALT [Catalytic activity/Vol] 23 U/L Normal 14-59 [facility] Comment on above: Performed By: #### C MP ####[facility] Ulrwhcnons[address] [place], [place] [address]Dr. Airam Tripathi Anion gap [Moles/Vol] 11.7 mmol/L Normal Th e [facility] Comment on above: Performed By: #### C MP ####[facility] Swloeuospv7[address] [place], [place] [address]Dr. Selenaneil Tripathi AST [Catalytic activity/Vol] 23 U/L Normal 15-37 [facility] Comment on above: Performed By: #### C MP ####[facility] Yuvwmhpbmk[address] [place], [place] [address]Dr. Selenaneil Deuce Bilirubin [Mass/Vol] 0.3 mg/dL Normal 0.2-1.0 [facility] Comment on above: Performed By: #### C MP ####[facility] Dtzucvmewe[address] [place], [place] [address]Dr. Airam Tripathi Calcium [Mass/Vol] 8.7 mg/dL Normal 8.5-10.1 [facility] Comment on above: Performed By: #### C MP ####[facility] Gjjpkmurvd[address] [place], [place] [address]Dr. Airam Tripathi Chloride [Moles/Vol] 99 mmol/L Normal 98-107 [facility] Comment on above: Performed By: #### C MP ####[facility] Pluxaaqnji10[address] [place], [place] [address]Dr. Airam Tripathi CO2 [Moles/Vol] 28.5 mmol/L Normal 21.0-32.0 [facility] Comment on above: Performed By: #### C MP ####[facility] Penjqclzgc14[address] [place] [address]Dr. Airam Tripathi Creatinine [Mass/Vol] 1.06 mg/dL Critically high 0.55-1.02 [facility] Comment on above: Performed By: #### C MP ####[facility] Xjbfjcqrdi7126 [place] [address]Dr. Airam Deuce EGFR-AF LATVIAN >60 Normal >=60 [facility] Comment on above: Performed By: #### C MP ####[facility] Oowrgmlrjz035[address] [place] [address]Dr. Airam Deuce EGFR-NON AF LATVIAN 53 mL/min/1.73m2 Critically low >=60 [facility] Comment on above: Performed By: #### C MP ####[facility] Nbfdndsihb[address] [place], [place] [address]Dr. Selenaneil Tripathi Globulin (S) [Mass/Vol] 3.5 g/dL Normal [facility] Comment on above: Performed By: #### C MP ####[facility] Mspkhyhfmj[address] [place], [place] [address]Dr. Airam Deuce Glucose [Mass/Vol] 79 mg/dL Normal 74-106 [facility] Comment on above: Performed By: #### C MP ####[facility] Jadyuvnhpn[address] [place], [place] [address]Dr. Airam Tripathi Potassium [Moles/Vol] 4.2 mmol/L Normal 3.5-5.1 [facility] Comment on above: Performed By: #### C MP ####[facility] Ejjicobugi[address] [place], [place] [address]Dr. Airam Tripathi Protein [Mass/Vol] 6.8 g/dL Normal 6.4-8.2 [facility] Comment on above: Performed By: #### C MP ####[facility] Ixlwaoxcin[address] [place], [place] [address]Dr. Airam Tripathi Sodium [Moles/Vol] 135 mmol/L Critically low 136-145 [facility] Comment on above: Performed By: #### C MP ####[facility] Cystbbsrrx0130[address] [place], [place] [address]Dr. Airam Tripathi Urea nitrogen [Mass/Vol] 16.0 mg/dL Normal 7.0-18.0 [facility] Comment on above: Performed By: #### C MP ####[facility] Ephozxpukx7030[address] [place], [place] [address]Dr. Airam Tripathi Urea nitrogen/Creatinine [Mass ratio] 15.1 mg/mg Normal [facility] Comment on above: Performed By: #### C MP ####[facility] M[address]apwskdaf[address] [place], [place] [address]Dr. Airam Tripathi XR CHEST 1 Von 10-12-2022 XR CHEST 1 V Normal [facility] PRBC LEUKOREDUCEDon 10-10-19 PRBC LEUKOREDUCED Normal [facility] Comment on above: Performed By: #### P RBC ####[facility] T[address]boqxbkp[address] [place], [place] [address]Dr. Airam Tripathi CULTURE URINEon 10-08-2022 CULTURE URINE Normal [facility] Comment on above: Performed By: #### U RCX ####[facility] Dooofksiud64[address] [place], [place] [address]Dr. Airam Tripathi OSMOLALITYon 10-08-2022 Osmolality [Osmolality] 282 mosm/kg Normal 275-295 [facility] Comment on above: Performed By: #### O SMO ####[facility] Xjumkdgeqa[address] [place], [place] [address]Dr. Airam Tripathi CBC AUTO DIFFon 10-07-2022 BASO # 0.0 103/ul Normal 0.0-0.1 [facility] Comment on above: Performed By: #### C BC ####[facility] Bpjenbteay[address] [place], [place] [address]Dr. Airam Tripathi Basophils/100 WBC (Bld) 0.3 % Normal 0.2-2.0 [facility] Comment on above: Performed By: #### C BC ####[facility] [address]ajlhvkk7[address] [place], [place] [address]Dr. Airam Tripathi EO # 0.2 103/ul Normal 0.0-0.7 [facility] Comment on above: Performed By: #### C BC ####[facility] Kccgxsvmpt[address] [place] [address]Dr. Airam Tripathi Eosinophils/100 WBC (Bld) 3.4 % Normal 0.9-7.0 [facility] Comment on above: Performed By: #### C BC ####[facility] Zntmfkouhz12[address] [place], [place] [address]Dr. Selenaneil Deuce Erythrocyte distribution width (RBC) [Ratio] 15.2 % Critically high 11.0-15.0 [facility] Comment on above: Performed By: #### C BC ####[facility] Ymqhfhlidr[address] [place], [place] [address]Dr. Airam Tripathi Hematocrit (Bld) [Volume fraction] 31.3 % Critically low 36.0-48.0 [facility] Comment on above: Performed By: #### C BC ####[facility] R[address]vsvwmqo[address] [place], [place] [address]Dr. Airam Tripathi Hemoglobin (Bld) [Mass/Vol] 9.9 g/dL Critically low 12.0-16.0 [facility] Comment on above: Performed By: #### C BC ####[facility] [address]nylkxchgr[address] [place], [place] [address]Dr. Selenaneil Tripathi IG # 0.03 10e3/ul Normal 0.00-0.03 [facility] Comment on above: Performed By: #### C BC ####[facility] Gdmoybrrus[address] [place], [place] [address]Dr. Airam Tripathi IG % 0.4 % Normal 0.0-0.5 [facility] Comment on above: Performed By: #### C BC ####[facility] Yhdoekuxrz[address] [place], [place] [address]Dr. Airam Tripathi LYMPH # 1.3 103/ul Normal 1.2-3.8 [facility] Comment on above: Performed By: #### C BC ####[facility] Csffzkoibl[address] [place], [place] [address]Dr. Airam Tripathi Lymphocytes/100 WBC (Bld) 19.0 % Critically low 20.5-60.0 [facility] Comment on above: Performed By: #### C BC ####[facility] [address]vecbiolc[address] [place], [place] [address]Dr. Airam Tripathi MANUAL DIFF REQ NO Normal [facility] Comment on above: Performed By: #### C BC ####[facility] [address]iebfrcfaw[address] [place], [place] [address]Dr. Airam Tripathi MCH (RBC) [Entitic mass] 28.1 pg Normal 26.7-34.0 [facility] Comment on above: Performed By: #### C BC ####[facility] Gempincten[address] [place], [place] [address]Dr. Airam Tripathi MCHC (RBC) [Mass/Vol] 31.6 g/dL Normal 29.9-35.2 [facility] Comment on above: Performed By: #### C BC ####[facility] [address] [place], [place] [address]Dr. Airam Tripathi MCV (RBC) [Entitic vol] 88.9 fL Normal 81.0-99.0 [facility] Comment on above: Performed By: #### C BC ####[facility] Pphlebqqfv[address] [place], [place] [address]Dr. Airam Tripathi MONO # 0.6 103/ul Normal 0.3-0.8 [facility] Comment on above: Performed By: #### C BC ####[facility] Warsqzjero[address] [place], [place] [address]Dr. Airam Tripathi Monocytes/100 WBC (Bld) 9.0 % Normal 1.7-12.0 [facility] Comment on above: Performed By: #### C BC ####[facility] Crgrmiuslb[address] [place], [place] [address]DrKianna Tripathi NEUT # 4.5 103/ul Normal 1.4-6.5 [facility] Comment on above: Performed By: #### C BC ####[facility] Bpidlkhvcx46[address] [place], [place] [address]Dr. Airam Tripathi Neutrophils/100 WBC (Bld) 67.9 % Normal 43.0-75.0 [facility] Comment on above: Performed By: #### C BC ####[facility] Jmmxezeiqq[address] [place] [address]DrKianna Tripathi Platelet mean volume (Bld) [Entitic vol] 9.1 fL Critically low 9.5-13.5 [facility] Comment on above: Performed By: #### C BC ####[facility] Nzbdqeuayd7147 [place] [address]DrKianna Tripathi PLT 256 103/ul Normal 150-450 [facility] Comment on above: Performed By: #### C BC ####[facility] Nzlammbwgs[address] [place], [place] [address]DrKianna Tripathi RBC 3.52 106/ul Critically low 4.20-5.40 [facility] Comment on above: Performed By: #### C BC ####[facility] Garlupwxdz97[address] [place], [place] [address]DrKianna Tripathi WBC 6.7 103/ul Normal 4.0-11.0 [facility] Comment on above: Performed By: #### C BC ####[facility] Bosjfwfinn[address] [place], [place] [address]DrKianna Tripathi PROF 14(COMP METB)on 023 Albumin [Mass/Vol] 2.8 g/dL Critically low 3.4-5.0 [facility] Comment on above: Performed By: #### C MP ####[facility] Jbcgtpgeoj0226 [place] [address]DrKianna Tripathi Albumin/Globulin [Mass ratio] 0.9 {ratio} Normal [facility] Comment on above: Performed By: #### C MP ####[facility] Zjxwaqhqih[address] [place], [place] [address]DrKianna Tripathi ALP [Catalytic activity/Vol] 118 U/L Critically high 46-116 [facility] Comment on above: Performed By: #### C MP ####[facility] Sgezknaclm40[address] [place], [place] [address]DrKianna Tripathi ALT [Catalytic activity/Vol] 23 U/L Normal 14-59 [facility] Comment on above: Performed By: #### C MP ####[facility] Ixycwjofne2178 [place] [address]Dr. Selenaneil Deuce Anion gap [Moles/Vol] 12.5 mmol/L Normal Th [facility] Comment on above: Performed By: #### C MP ####[facility] Bxcpdnymyo6[address] [place], [place] [address]Dr. Airam Deuce AST [Catalytic activity/Vol] 21 U/L Normal 15-37 [facility] Comment on above: Performed By: #### C MP ####[facility] Ssxlyjhdco80[address] [place], [place] [address]Dr. Ariam Tripathi Bilirubin [Mass/Vol] 0.4 mg/dL Normal 0.2-1.0 [facility] Comment on above: Performed By: #### C MP ####[facility] Fuxgjnfulj9357[address] [place], [place] [address]Dr. Airam Tripathi Calcium [Mass/Vol] 8.2 mg/dL Critically low 8.5-10.1 [facility] Comment on above: Performed By: #### C MP ####[facility] Jkiiyionat7[address] [place], [place] [address]Dr. Airam Tripathi Chloride [Moles/Vol] 99 mmol/L Normal 98-107 [facility] Comment on above: Performed By: #### C MP ####[facility] Xmaxpgwgjd523[address] [place], [place] [address]Dr. Airam Tripathi CO2 [Moles/Vol] 24.9 mmol/L Normal 21.0-32.0 [facility] Comment on above: Performed By: #### C MP ####[facility] Qbocisolxl4120[address] [place], [place] [address]Dr. Airam Tripathi Creatinine [Mass/Vol] 1.61 mg/dL Critically high 0.55-1.02 [facility] Comment on above: Performed By: #### C MP ####[facility] Axizxzmfos4005[address] [place], [place] [address]Dr. Airam Tripathi EGFR-AF LATVIAN 40 mL/min/1.73m2 Critically low >=60 [facility] Comment on above: Performed By: #### C MP ####[facility] Itravahdsb2053 [place] [address]Dr. Airam Deuce EGFR-NON AF LATVIAN 33 mL/min/1.73m2 Critically low >=60 [facility] Comment on above: Performed By: #### C MP ####[facility] Wpitefznpy8898 [place] [address]Dr. Airam Tripathi Globulin (S) [Mass/Vol] 3.2 g/dL Normal [facility] Comment on above: Performed By: #### C MP ####[facility] Fgcmcdyvll076[address] [place], [place] [address]Dr. Airam Tripathi Glucose [Mass/Vol] 67 mg/dL Critically low 74-106 [facility] Comment on above: Performed By: #### C MP ####[facility] Jntvzaakmb2138[address] [place], [place] [address]Dr. Airam Tripathi Potassium [Moles/Vol] 5.4 mmol/L Critically high 3.5-5.1 [facility] Comment on above: Performed By: #### C MP ####[facility] Ijunevolzn1237[address] [place], [place] [address]Dr. Airam Tripathi Protein [Mass/Vol] 6.0 g/dL Critically low 6.4-8.2 [facility] Comment on above: Performed By: #### C MP ####[facility] Xbikqdwpmq764[address] [place], [place] [address]Dr. Airam Tripathi Sodium [Moles/Vol] 131 mmol/L Critically low 136-145 [facility] Comment on above: Performed By: #### C MP ####[facility] Pmdbrksosk2347[address] [place], [place] [address]Dr. Airam Tripathi Urea nitrogen [Mass/Vol] 43.0 mg/dL Critically high 7.0-18.0 [facility] Comment on above: Performed By: #### C MP ####[facility] Mzvhevawcl8[address] [place], [place] [address]Dr. Airam Tripathi Urea nitrogen/Creatinine [Mass ratio] 26.7 mg/mg Normal [facility] Comment on above: Performed By: #### C MP ####[facility] Kycccxuhoc3863 [place] [address]Dr. Airam Tripathi CBC AUTO DIFFon 10-06-2022 BASO # 0.0 103/ul Normal 0.0-0.1 [facility] Comment on above: Performed By: #### C BC ####[facility] Cxcywikspx86364[address] [place], [place] [address]Dr. Airam Tripathi Basophils/100 WBC (Bld) 0.3 % Normal 0.2-2.0 [facility] Comment on above: Performed By: #### C BC ####[facility] Eaeoahvjzv2427[address] [place], [place] [address]Dr. Airam Deuce EO # 0.2 103/ul Normal 0.0-0.7 [facility] Comment on above: Performed By: #### C BC ####[facility] Fulzlxvkrs3997[address] [place], [place] [address]Dr. Airam Deuce Eosinophils/100 WBC (Bld) 3.1 % Normal 0.9-7.0 [facility] Comment on above: Performed By: #### C BC ####[facility] Qpwixgagkz4513[address] [place], [place] [address]Dr. Airam Tripathi Erythrocyte distribution width (RBC) [Ratio] 15.0 % Normal 11.0-15.0 [facility] Comment on above: Performed By: #### C BC ####[facility] Shintkwjso7601[address] [place], [place] [address]Dr. Airam Tripathi Hematocrit (Bld) [Volume fraction] 30.9 % Critically low 36.0-48.0 [facility] Comment on above: Performed By: #### C BC ####[facility] Kfnjecujxg349[address] [place], [place] [address]Dr. Airam Tripathi Hemoglobin (Bld) [Mass/Vol] 10.1 g/dL Critically low 12.0-16.0 [facility] Comment on above: Result Comment: BIJU ENT RECIEVED 2 UNITS PRBC'S Performed By: #### C BC ####[facility] [address]ukkhigz[address] [place] [id number]. Airam Tripathi IG # 0.03 10e3/ul Normal 0.00-0.03 [facility] Comment on above: Performed By: #### C BC ####[facility] Upontqihvo6554 [place] [id number]. Airam Tripathi IG % 0.4 % Normal 0.0-0.5 [facility] Comment on above: Performed By: #### C BC ####[facility] Mwtyeruplg2295 [place] [address]Dr. Airam Tripathi LYMPH # 1.1 103/ul Critically low 1.2-3.8 [facility] Comment on above: Performed By: #### C BC ####[facility] Vwfvsvkura[address] [place], [place] [address]Dr. Airam Tripathi Lymphocytes/100 WBC (Bld) 14.4 % Critically low 20.5-60.0 [facility] Comment on above: Performed By: #### C BC ####[facility] Nszwnqvjwz6406 [place] [address]Dr. Airam Tripathi MANUAL DIFF REQ NO Normal [facility] Comment on above: Performed By: #### C BC ####[facility] Pkegbvtwdt[address] [place], [place] [address]Dr. Airam Tripathi MCH (RBC) [Entitic mass] 28.9 pg Normal 26.7-34.0 [facility] Comment on above: Performed By: #### C BC ####[facility] Fmktwccoyq[address] [place], [place] [address]Dr. Airam Tripathi MCHC (RBC) [Mass/Vol] 32.7 g/dL Normal 29.9-35.2 [facility] Comment on above: Performed By: #### C BC ####[facility] Zpejjkulpm2692 [place] [address]Dr. Airam Deuce MCV (RBC) [Entitic vol] 88.3 fL Normal 81.0-99.0 [facility] Comment on above: Performed By: #### C BC ####[facility] Gumltfsrfq4629 [place] [id number]. Airam Tripathi MONO # 0.6 103/ul Normal 0.3-0.8 [facility] Comment on above: Performed By: #### C BC ####[facility] Umjnsifitd4804 [place] [id number]. Airam Tripathi Monocytes/100 WBC (Bld) 7.8 % Normal 1.7-12.0 [facility] Comment on above: Performed By: #### C BC ####[facility] Cplaiwbuux0541 [place] [id number]. Airam Tripathi NEUT # 5.5 103/ul Normal 1.4-6.5 [facility] Comment on above: Performed By: #### C BC ####[facility] Awlatpwxiv4367 [place] [address]Dr. Airam Tripathi Neutrophils/100 WBC (Bld) 74.0 % Normal 43.0-75.0 [facility] Comment on above: Performed By: #### C BC ####[facility] Jqcudwafjk9113 [place] [id number]. Airam Tripathi Platelet mean volume (Bld) [Entitic vol] 9.2 fL Critically low 9.5-13.5 [facility] Comment on above: Performed By: #### C BC ####[facility] Qmijirgefx8268 [place] [id number]. Airam Tripathi PLT 275 103/ul Normal 150-450 [facility] Comment on above: Performed By: #### C BC ####[facility] Ousiwvldgt8238 [place] [id number]. Airam Tripathi RBC 3.50 106/ul Critically low 4.20-5.40 [facility] Comment on above: Performed By: #### C BC ####[facility] Yysjqzbxyk5625 [place] [address]Dr. Airam Tripathi WBC 7.4 103/ul Normal 4.0-11.0 [facility] Comment on above: Performed By: #### C BC ####[facility] Qyehegvfsx2838 [place] [id number]. Airam Tripathi BASO # 0.0 103/ul Normal 0.0-0.1 [facility] Comment on above: Performed By: #### C BC ####[facility] Nszizevzmr[address] [place], [place] [address]Dr. Airam Tripathi Basophils/100 WBC (Bld) 0.4 % Normal 0.2-2.0 [facility] Comment on above: Performed By: #### C BC ####[facility] Xiebfvkmtc16[address] [place], [place] [address]Dr. Airam Tripathi EO # 0.2 103/ul Normal 0.0-0.7 [facility] Comment on above: Performed By: #### C BC ####[facility] Gpnsyrmgjz[address] [place], [place] [address]Dr. Airam Tripathi Eosinophils/100 WBC (Bld) 4.5 % Normal 0.9-7.0 [facility] Comment on above: Performed By: #### C BC ####[facility] Jpmuigncja09[address] [place], [place] [address]Dr. Airam Tripathi Erythrocyte distribution width (RBC) [Ratio] 15.1 % Critically high 11.0-15.0 [facility] Comment on above: Performed By: #### C BC ####[facility] Bbebeoaxut[address] [place], [place] [address]Dr. Airam Tripathi Hematocrit (Bld) [Volume fraction] 23.0 % Critically low 36.0-48.0 [facility] Comment on above: Performed By: #### C BC ####[facility] Ax[address]lkmbpk[address] [place], [place] [address]Dr. Airam Tripathi Hemoglobin (Bld) [Mass/Vol] 7.2 g/dL Critically low 12.0-16.0 [facility] Comment on above: Performed By: #### C BC ####[facility] Hokbwettyq0[address] [place], [place] [address]Dr. Airam Tripathi IG # 0.02 10e3/ul Normal 0.00-0.03 [facility] Comment on above: Performed By: #### C BC ####[facility] Hajclrkdrb0233 [place] [id number]. Airam Tripathi IG % 0.4 % Normal 0.0-0.5 [facility] Comment on above: Performed By: #### C BC ####[facility] Qbdccoqzbr9981 [place] [id number]. Airam Deuce LYMPH # 1.0 103/ul Critically low 1.2-3.8 [facility] Comment on above: Performed By: #### C BC ####[facility] Mzhxmcrctl4456 [place] [id number]. Airam Deuce Lymphocytes/100 WBC (Bld) 22.5 % Normal 20.5-60.0 [facility] Comment on above: Performed By: #### C BC ####[facility] Knioovwjvk0451 [place] [address]Dr. Airam Deuce MANUAL DIFF REQ NO Normal [facility] Comment on above: Performed By: #### C BC ####[facility] Ogbemprewz6857 [place] [address]Dr. Airam Tripathi MCH (RBC) [Entitic mass] 28.3 pg Normal 26.7-34.0 [facility] Comment on above: Performed By: #### C BC ####[facility] Vwkcynuazh8468 [place] [address]Dr. Airam Tripathi MCHC (RBC) [Mass/Vol] 31.3 g/dL Normal 29.9-35.2 [facility] Comment on above: Performed By: #### C BC ####[facility] Gntcnolosy5490 [place] [id number]. Airam Tripathi MCV (RBC) [Entitic vol] 90.6 fL Normal 81.0-99.0 [facility] Comment on above: Performed By: #### C BC ####[facility] H[address]wnlxnwc[address] [place], [place] [address]Dr. Selenaneil Tripathi MONO # 0.5 103/ul Normal 0.3-0.8 [facility] Comment on above: Performed By: #### C BC ####[facility] Njozmgmlwm5933 [place] [address]Dr. Airam Tripathi Monocytes/100 WBC (Bld) 9.7 % Normal 1.7-12.0 [facility] Comment on above: Performed By: #### C BC ####[facility] Aohamcjkca4628 [place] [id number]. Airam Tripathi NEUT # 2.9 103/ul Normal 1.4-6.5 [facility] Comment on above: Performed By: #### C BC ####[facility] Lzssvyuxuu6136 [place] [address]Dr. Airam Tripathi Neutrophils/100 WBC (Bld) 62.5 % Normal 43.0-75.0 [facility] Comment on above: Performed By: #### C BC ####[facility] Mglxkgvzxe8311 [place] [address]Dr. Airam Tripathi Platelet mean volume (Bld) [Entitic vol] 8.9 fL Critically low 9.5-13.5 [facility] Comment on above: Performed By: #### C BC ####[facility] Cprjvicecw2648 [place] [address]Dr. Airam Tripathi PLT 210 103/ul Normal 150-450 [facility] Comment on above: Performed By: #### C BC ####[facility] Obztnkpqpn4852 [place] [address]Dr. Airam Tripathi RBC 2.54 106/ul Critically low 4.20-5.40 [facility] Comment on above: Performed By: #### C BC ####[facility] Tylvjlfswr3303 [place] [address]Dr. Airam Tripathi WBC 4.6 103/ul Normal 4.0-11.0 [facility] Comment on above: Performed By: #### C BC ####[facility] Fndktgjpgv2101 [place] [address]Dr. Airam Tripathi OSMOLALITYon 10-06-2022 Osmolality [Osmolality] 279 mosm/kg Normal 275-295 [facility] Comment on above: Performed By: #### O SMO ####[facility] [address]wfsthd[address] [place], [place] [address]Dr. Airam Tripathi POINT OF CARE GLUCOSEon 09-24 Glucose [Mass/Vol] 72 mg/dL Critically low 74-106 [facility] Comment on above: Performed By: #### P OCGLUC ####[facility] Lucgmraexb3103 [place] [address]Dr. Selenaneil Deuce Glucose [Mass/Vol] 102 mg/dL Normal 74-106 [facility] Comment on above: Performed By: #### P OCGLUC ####[facility] Zjthsztyez2068 [place] [address]Dr. Airam Tripathi Glucose [Mass/Vol] 165 mg/dL Critically high 74-106 [facility] Comment on above: Performed By: #### P OCGLUC ####[facility] Ffmpzowgge9814 [place] [address]Dr. Airam Tripathi PROF 14(COMP METB)on 023 Albumin [Mass/Vol] 2.6 g/dL Critically low 3.4-5.0 [facility] Comment on above: Performed By: #### C MP ####[facility] Sdecvajzkg8616 [place] [address]Dr. Airam Tripathi Albumin/Globulin [Mass ratio] 0.9 {ratio} Normal [facility] Comment on above: Performed By: #### C MP ####[facility] Huqjhhnhqn5896 [place] [address]Dr. Airam Tripathi ALP [Catalytic activity/Vol] 107 U/L Normal 46-116 [facility] Comment on above: Performed By: #### C MP ####[facility] Dspahujuai5021 [place] [address]Dr. Airam Tripathi ALT [Catalytic activity/Vol] 22 U/L Normal 14-59 [facility] Comment on above: Performed By: #### C MP ####[facility] Bbzadzpega4104 [place] [address]Dr. Airam Tripathi Anion gap [Moles/Vol] 10.0 mmol/L Normal [facility] Comment on above: Performed By: #### C MP ####[facility] Gpabpkzpjn0841 [place], [place] [address]Mj. Airam Tripathi AST [Catalytic activity/Vol] 19 U/L Normal 15-37 [facility] Comment on above: Performed By: #### C MP ####[facility] Rzpyrxdlko6672 [place], [place] [address]Ry. Airam Tripathi Bilirubin [Mass/Vol] 0.2 mg/dL Normal 0.2-1.0 [facility] Comment on above: Performed By: #### C MP ####[facility] Zmhspwohrz7189 [place] [id number]. Airam Tripathi Calcium [Mass/Vol] 8.1 mg/dL Critically low 8.5-10.1 [facility] Comment on above: Performed By: #### C MP ####[facility] Ajnlvidhlt3102 [place] [id number]. Airam Tripathi Chloride [Moles/Vol] 100 mmol/L Normal 98-107 [facility] Comment on above: Performed By: #### C MP ####[facility] Sjsnrvmimq2519 [place] [id number]. Airam Tripathi CO2 [Moles/Vol] 26.2 mmol/L Normal 21.0-32.0 [facility] Comment on above: Performed By: #### C MP ####[facility] Ssuqztgveq8318 [place] [id number]. Airam Tripathi Creatinine [Mass/Vol] 1.90 mg/dL Critically high 0.55-1.02 [facility] Comment on above: Performed By: #### C MP ####[facility] Eyxiqzodzy8856 [place] [id number]. Airam Tripathi EGFR-AF LATVIAN 33 mL/min/1.73m2 Critically low >=60 [facility] Comment on above: Performed By: #### C MP ####[facility] Maltszzlxd9059 [place] [id number]. Airam Tripathi EGFR-NON AF LATVIAN 27 mL/min/1.73m2 Critically low >=60 [facility] Comment on above: Performed By: #### C MP ####[facility] Dswaxhbikv0335 [place] [id number]. Airam Tripathi Globulin (S) [Mass/Vol] 2.8 g/dL Normal [facility] Comment on above: Performed By: #### C MP ####[facility] Zsbmgsbaxu6315 [place] [id number]. Airam Tripathi Glucose [Mass/Vol] 115 mg/dL Critically high 74-106 [facility] Comment on above: Performed By: #### C MP ####[facility] Qrzfokbhwi4290 [place] [address]Dr. Airam Tripathi Potassium [Moles/Vol] 5.2 mmol/L Critically high 3.5-5.1 [facility] Comment on above: Performed By: #### C MP ####[facility] Yyjwnsjvec[address] [place], [place] [address]Dr. Airam Tripathi Protein [Mass/Vol] 5.4 g/dL Critically low 6.4-8.2 [facility] Comment on above: Performed By: #### C MP ####[facility] Vnkxhfpyzm[address] [place], [place] [address]Dr. Airam Tripathi Sodium [Moles/Vol] 131 mmol/L Critically low 136-145 Th [facility] Comment on above: Performed By: #### C MP ####[facility] Ladxlthcad1504[address] [place], [place] [address]Dr. Airam Tripathi Urea nitrogen [Mass/Vol] 41.0 mg/dL Critically high 7.0-18.0 [facility] Comment on above: Performed By: #### C MP ####[facility] Ienixniwrj5067 [place] [address]Dr. Airam Tripathi Urea nitrogen/Creatinine [Mass ratio] 21.6 mg/mg Normal [facility] Comment on above: Performed By: #### C MP ####[facility] Duvzenakqt9[address] [place], [place] [address]Dr. Airam Tripathi TYPE AND SCREENon 10-06-2022 TYPE AND SCREEN Negative Normal [facility] Comment on above: Performed By: #### T NS ####[facility] Lqceatfzid1623 [place] [id number]. Airam Tripathi CBC AUTO DIFFon 10-05-2022 BASO # 0.0 103/ul Normal 0.0-0.1 [facility] Comment on above: Performed By: #### C BC ####[facility] Zzytvyihvz0[address] [place], [place] [address]Dr. Airam Deuce Basophils/100 WBC (Bld) 0.5 % Normal 0.2-2.0 [facility] Comment on above: Performed By: #### C BC ####[facility] Smmeaxgrof40[address] [place], [place] [address]Dr. Airam Tripathi EO # 0.2 103/ul Normal 0.0-0.7 [facility] Comment on above: Performed By: #### C BC ####[facility] Iniltcorjk023[address] [place], [place] [address]Dr. Airam Tripathi Eosinophils/100 WBC (Bld) 3.2 % Normal 0.9-7.0 [facility] Comment on above: Performed By: #### C BC ####[facility] Aoyoeesfff6440[address] [place], [place] [address]Dr. Airam Tripathi Erythrocyte distribution width (RBC) [Ratio] 15.2 % Critically high 11.0-15.0 [facility] Comment on above: Performed By: #### C BC ####[facility] Zkpkzgcbdl7[address] [place], [place] [address]Dr. Airam Tripathi Hematocrit (Bld) [Volume fraction] 24.7 % Critically low 36.0-48.0 [facility] Comment on above: Performed By: #### C BC ####[facility] Atlzxytpot[address] [place], [place] [address]Dr. Selenaneil Tripathi Hemoglobin (Bld) [Mass/Vol] 7.6 g/dL Critically low 12.0-16.0 [facility] Comment on above: Performed By: #### C BC ####[facility] Tweqttyikd[address] [place], [place] [address]Dr. Airam Tripathi IG # 0.02 10e3/ul Normal 0.00-0.03 [facility] Comment on above: Performed By: #### C BC ####[facility] Imzeaqpcik2607 [place] [id number]. Airam Tripathi IG % 0.3 % Normal 0.0-0.5 [facility] Comment on above: Performed By: #### C BC ####[facility] Znliatfeik1212 [place] [id number]. Airam Tripathi LYMPH # 1.1 103/ul Critically low 1.2-3.8 [facility] Comment on above: Performed By: #### C BC ####[facility] Eemlixuhkd0892 [place] [address]Dr. Airam Deuce Lymphocytes/100 WBC (Bld) 18.4 % Critically low 20.5-60.0 [facility] Comment on above: Performed By: #### C BC ####[facility] Euufcfwqto7432 [place] [address]Dr. Selenaneil Tripathi MANUAL DIFF REQ NO Normal [facility] Comment on above: Performed By: #### C BC ####[facility] I[address]hhp[address] [place], [place] [address]Dr. Airam Tripathi MCH (RBC) [Entitic mass] 28.5 pg Normal 26.7-34.0 [facility] Comment on above: Performed By: #### C BC ####[facility] Rkcgixmvpl5026 [place] [address]Dr. Airam Tripathi MCHC (RBC) [Mass/Vol] 30.8 g/dL Normal 29.9-35.2 [facility] Comment on above: Performed By: #### C BC ####[facility] [address]nyqbbswa[address] [place], [place] [address]Dr. Airam Tripathi MCV (RBC) [Entitic vol] 92.5 fL Normal 81.0-99.0 [facility] Comment on above: Performed By: #### C BC ####[facility] Eucomwptqz[address] [place], [place] [address]Dr. Airam Deuce MONO # 0.6 103/ul Normal 0.3-0.8 [facility] [facility] Comment on above: Performed By: #### C BC ####[facility] [address]wt[address] [place] [id number]. Airam Tripathi Monocytes/100 WBC (Bld) 10.0 % Normal 1.7-12.0 [facility] Comment on above: Performed By: #### C BC ####[facility] Gjjldszsfc69[address] [place] [id number]. Airam Tripathi NEUT # 4.0 103/ul Normal 1.4-6.5 [facility] Comment on above: Performed By: #### C BC ####[facility] Vneojqhosv4[address] [place] [id number]. Airam Tripathi Neutrophils/100 WBC (Bld) 67.6 % Normal 43.0-75.0 [facility] Comment on above: Performed By: #### C BC ####[facility] Dcufextbzn[address] [place], [place] [address]Dr. Airam Tripathi Platelet mean volume (Bld) [Entitic vol] 8.8 fL Critically low 9.5-13.5 [facility] Comment on above: Performed By: #### C BC ####[facility] Swxronzwra80[address] [place] [id number]. Airam Tripathi PLT 226 103/ul Normal 150-450 [facility] Comment on above: Performed By: #### C BC ####[facility] Stdjzsurqj69[address] [place] [id number]. Airam Tripathi RBC 2.67 106/ul Critically low 4.20-5.40 [facility] Comment on above: Performed By: #### C BC ####[facility] Aqbxoh[address] [place], [place] [id number]. Airam Tripathi WBC 5.9 103/ul Normal 4.0-11.0 [facility] Comment on above: Performed By: #### C BC ####[facility] Ofvlqbsogs23[address] [place], [place] [address]Dr. Airam Tripathi Covid-19 PCR ([facility]on 09-24 SARS-CoV-2 (COVID-19) RNA MIKE+probe Ql (Unsp spec) Not detected Normal NOT DETECTED [facility] Comment on above: Result Comment: When diagnostic [...] for this test is supported by the Software Engineer Developer of Health and Human Service's declaration that [...] used). Performed By: #### C VDTBH ####[facility] Blcpxhzuqz46[address] [place], [place] [address]Dr. Airam Tripathi MAGNESIUMon 10-05-2022 Magnesium [Mass/Vol] 1.7 mg/dL Critically low 1.8-2.4 [facility] Comment on above: Performed By: #### M Yumiko, CMP ####[facility] Jksnkcgqyi93[address] [place], [place] [address]Dr. Airam Tripathi POINT OF CARE GLUCOSEon 09-24 Glucose [Mass/Vol] 92 mg/dL Normal 74-106 [facility] Comment on above: Performed By: #### P OCGLUC ####[facility] [address]mrdgawfml[address] [place], [place] [address]Dr. Airam Tripathi PROF 14(COMP METB)on 023 Albumin [Mass/Vol] 2.9 g/dL Critically low 3.4-5.0 Th e [facility] Comment on above: Performed By: #### M Yumiko, CMP ####[facility] Zeobemwkeu190[address] [place], [place] [address]Dr. Airam Tripathi Albumin/Globulin [Mass ratio] 0.9 {ratio} Normal [facility] Comment on above: Performed By: #### M G, CMP ####[facility] Kbhpboycfu9[address] [place], [place] [address]Dr. Airam Tripathi ALP [Catalytic activity/Vol] 122 U/L Critically high 46-116 [facility] Comment on above: Performed By: #### M G, CMP ####[facility] Jcthfxyqmb6199[address] [place], [place] [address]Dr. Airam Tripathi ALT [Catalytic activity/Vol] 24 U/L Normal 14-59 [facility] Comment on above: Performed By: #### M G, CMP ####[facility] Zpsamnpfjg7754[address] [place], [place] [address]Dr. Selenaneil Tripathi Anion gap [Moles/Vol] 13.1 mmol/L Normal [facility] Comment on above: Performed By: #### Nadya G, CMP ####[facility] Ogdkqkxshm55[address] [place], [place] [address]Dr. Airam Tripathi AST [Catalytic activity/Vol] 21 U/L Normal 15-37 [facility] Comment on above: Performed By: #### Nadya Calderon, CMP ####[facility] Ofvqdakkso25[address] [place], [place] [address]Dr. Airam Tripathi Bilirubin [Mass/Vol] 0.2 mg/dL Normal 0.2-1.0 [facility] Comment on above: Performed By: #### Nadya Calderon, CMP ####[facility] [address]sjalrpzla65[address] [place], [place] [address]Dr. Airam Tripathi Calcium [Mass/Vol] 8.4 mg/dL Critically low 8.5-10.1 [facility] Comment on above: Performed By: #### Nadya Yumiko, CMP ####[facility] Akondjscrp[address] [place], [place] [address]Dr. Airam Tripathi Chloride [Moles/Vol] 102 mmol/L Normal 98-107 [facility] Comment on above: Performed By: #### Nadya G, CMP ####[facility] Ufyxlrwabr11[address] [place], [place] [address]Dr. Airam Tripathi CO2 [Moles/Vol] 23.2 mmol/L Normal 21.0-32.0 [facility] Comment on above: Performed By: #### M G, CMP ####[facility] [address] [place] [address]Dr. Airam Tripathi Creatinine [Mass/Vol] 1.96 mg/dL Critically high 0.55-1.02 [facility] Comment on above: Performed By: #### M G, CMP ####[facility] Qzplvxsfvz7[address] [place], [place] [address]Dr. Airam Tripathi EGFR-AF LATVIAN 32 mL/min/1.73m2 Critically low >=60 [facility] Comment on above: Performed By: #### M G, CMP ####[facility] Avamgojwpt7[address] [place], [place] [address]Dr. Airam Tripathi EGFR-NON AF LATVIAN 26 mL/min/1.73m2 Critically low >=60 [facility] Comment on above: Performed By: #### M G, CMP ####[facility] Kdgnclprsv78[address] [place], [place] [address]Dr. Airam Tripathi Globulin (S) [Mass/Vol] 3.2 g/dL Normal [facility] Comment on above: Performed By: #### M G, CMP ####[facility] Grvxjldxpr405[address] [place], [place] [address]Dr. Airam Tripathi Glucose [Mass/Vol] 68 mg/dL Critically low 74-106 [facility] Comment on above: Performed By: #### M G, CMP ####[facility] Swokmvxjox223[address] [place], [place] [address]Dr. Airam Tripathi Potassium [Moles/Vol] 5.3 mmol/L Critically high 3.5-5.1 [facility] Comment on above: Performed By: #### M G, CMP ####[facility] Hlxsjlqnah8320[address] [place], [place] [address]Dr. Airam Tripathi Protein [Mass/Vol] 6.1 g/dL Critically low 6.4-8.2 [facility] Comment on above: Performed By: #### M G, CMP ####[facility] Lzrzotapzq4[address] [place], [place] [address]Dr. Airam Tripathi Sodium [Moles/Vol] 133 mmol/L Critically low 136-145 [facility] Comment on above: Performed By: #### Nadya Calderon, CMP ####[facility] Jshagoxrqq4140[address] [place], [place] [address]Dr. Airam Tripathi Urea nitrogen [Mass/Vol] 39.0 mg/dL Critically high 7.0-18.0 [facility] Comment on above: Performed By: #### Nadya Calderon, CMP ####[facility] Lupmhtnwxj8[address] [place], [place] [address]Dr. Airam Tripathi Urea nitrogen/Creatinine [Mass ratio] 19.9 mg/mg Normal [facility] Comment on above: Performed By: #### Nadya Calderon, CMP ####[facility] Izrkcunrjz[address] [place], [place] [address]Dr. Airam Tripathi SODIUM RANDOM URINEon 2022 Sodium (U) [Moles/Vol] 37 mmol/L Normal 30-90 [facility] Comment on above: Performed By: #### N AU ####[facility] Dawybbvwxx6[address] [place], [place] [address]Dr. Airam Tripathi UA RANDOM W/MICROSCOPICon BACTERIA TRACE Abnormal NONE SEEN The [facility] Comment on above: Performed By: #### U AMIC ####[facility] Tlxkejcsex[address] [place], [place] [address]Dr. Airam Tripathi Bilirubin Ql (U) Negative Normal NEGATIVE [facility] Comment on above: Performed By: #### U AMIC ####[facility] Jslqfroonk[address] [place], [place] [address]Dr. Airam Tripathi CAST SEEN Abnormal NONE SEEN The [facility] Comment on above: Performed By: #### U AMIC ####[facility] Aimjoelfoy[address] [place], [place] [address]Dr. Airam Tripathi Clarity (U) CLEAR Normal CLEAR [facility] Comment on above: Performed By: #### U AMIC ####[facility] Gcqnhobxmv320[address] [place], [place] [address]Dr. Airam Tripathi Color (U) YELLOW Normal YELLOW [facility] Comment on above: Performed By: #### U AMIC ####[facility] [address]ruapldvq[address] [place] [id number]. Selenalan Tripathi Crystals LM Nom (Urine sed) NONE SEEN Normal NONE SEEN [facility] Comment on above: Performed By: #### U AMIC ####[facility] Ffmvnqmgmw[address] [place] [id number]. Yilan Triptahi Epithelial cells LM Ql (Urine sed) RARE Normal NONE SEEN /RARE [facility] Comment on above: Performed By: #### U AMIC ####[facility] Uzzszywusx16[address] [place] [id number]. Yilan Tripathi Glucose Ql (U) Negative Normal NEGATIVE [facility] Comment on above: Performed By: #### U AMIC ####[facility] Qmjxzvatir8368 [place] [address]Dr. Yilan Tripathi Hemoglobin Ql (U) Negative Normal NEGATIVE [facility] Comment on above: Performed By: #### U AMIC ####[facility] Qzywbxodwl5[address] [place], [place] [address]Dr. Yilan Tripathi HYALINE CAST RARE Normal [facility] Comment on above: Performed By: #### U AMIC ####[facility] Sasfcosabr7[address] [place], [place] [address]Dr. Selenalan Tripathi Ketones Ql (U) TRACE Abnormal NEGATIVE [facility] Comment on above: Performed By: #### U AMIC ####[facility] Gxcvvsganm66[address] [place] [address]Dr. Yilan Tripathi LEUKOCYTES Negative Normal NEGATIVE [facility] Comment on above: Performed By: #### U AMIC ####[facility] Ezwzqnkmme12[address] [place] [id number]. Yilan Tripathi MUCOUS NONE SEEN Normal NONE SEEN [facility] Comment on above: Performed By: #### U AMIC ####[facility] Hycgrqdjwf6604[address] [place], [place] [address]Dr. Yilan Tripathi Nitrite Ql (U) Negative Normal NEGATIVE [facility] Comment on above: Performed By: #### U AMIC ####[facility] Pemhketrgu67[address] [place], [place] [address]Dr. Airam Tripathi pH (U) 5.0 [pH] Normal 5-9 [facility] Comment on above: Performed By: #### U AMIC ####[facility] Y[address]zhe[address] [place] [address]Dr. Airam Tripathi RBC 0-2 Normal 0-2 [facility] Comment on above: Performed By: #### U AMIC ####[facility] Acjtpzavid37[address] [place] [address]Dr. Airam Tripathi SPEC GRAVITY 1.015 Normal 1.005-<=1.02 5 [facility] Comment on above: Performed By: #### U AMIC ####[facility] Luqxmbemzh[address] [place], [place] [address]Dr. Airam Tripathi UA PROTEIN Negative Normal NEGATIVE/ TRACE [facility] Comment on above: Performed By: #### U AMIC ####[facility] Olatzyrhpo[address] [place], [place] [address]Dr. Airam Tripathi Urobilinogen Qn (U) 0.2 {Ligia'U}/dL Normal 0.2 - 1. 0 [facility] Comment on above: Performed By: #### U AMIC ####[facility] Nwjrgbupru649[address] [place], [place] [address]Dr. Airam Tripathi WBC NONE SEEN Normal NONE SEEN [facility] Comment on above: Performed By: #### U AMIC ####[facility] Agvzggbcjl24[address] [place] [address]Dr. Airam Tripathi CBC AUTO DIFFon 10-04-2022 BASO # 0.0 103/ul Normal 0.0-0.1 [facility] Comment on above: Performed By: #### C BC ####[facility] Rlskztkxms[address] [place], [place] [address]Dr. Airam Tripathi Basophils/100 WBC (Bld) 0.3 % Normal 0.2-2.0 [facility] Comment on above: Performed By: #### C BC ####[facility] Cihspddzzs16[address] [place], [place] [address]Dr. Airam Tripathi EO # 0.2 103/ul Normal 0.0-0.7 [facility] Comment on above: Performed By: #### C BC ####[facility] Pucwmdhwpz76[address] [place] [address]Dr. Airam Deuce Eosinophils/100 WBC (Bld) 3.2 % Normal 0.9-7.0 [facility] Comment on above: Performed By: #### C BC ####[facility] Ellhdsxgtu15[address] [place], [place] [address]Dr. Selenaneil Deuce Erythrocyte distribution width (RBC) [Ratio] 15.1 % Critically high 11.0-15.0 [facility] Comment on above: Performed By: #### C BC ####[facility] Buippwgwik1650[address] [place], [place] [address]Dr. Airam Tripathi Hematocrit (Bld) [Volume fraction] 27.6 % Critically low 36.0-48.0 [facility] Comment on above: Performed By: #### C BC ####[facility] Lbcejevlgn4[address] [place], [place] [address]Dr. Airam Tripathi Hemoglobin (Bld) [Mass/Vol] 8.7 g/dL Critically low 12.0-16.0 [facility] Comment on above: Performed By: #### C BC ####[facility] Eizdknwfbb[address] [place], [place] [address]Dr. Airam Tripathi IG # 0.03 10e3/ul Normal 0.00-0.03 [facility] Comment on above: Performed By: #### C BC ####[facility] Duckzwrmer[address] [place], [place] [address]Dr. Airam Tripathi IG % 0.4 % Normal 0.0-0.5 [facility] Comment on above: Performed By: #### C BC ####[facility] Rrzxoqcdgx37[address] [place], [place] [address]Dr. Airam Tripathi LYMPH # 1.2 103/ul Normal 1.2-3.8 [facility] Comment on above: Performed By: #### C BC ####[facility] Ftdoernchi8388[address] [place], [place] [address]Dr. Airam Tripathi Lymphocytes/100 WBC (Bld) 16.4 % Critically low 20.5-60.0 [facility] Comment on above: Performed By: #### C BC ####[facility] Oxxyxtnklo[address] [place] [address]DrKianna Tripathi MANUAL DIFF REQ NO Normal [facility] Comment on above: Performed By: #### C BC ####[facility] Zpjqgsbqzj43[address] [place] [address]Dr. Airam Tripathi MCH (RBC) [Entitic mass] 28.5 pg Normal 26.7-34.0 [facility] Comment on above: Performed By: #### C BC ####[facility] Epuhqfjgpj627[address] [place], [place] [address]Dr. Airam Tripathi MCHC (RBC) [Mass/Vol] 31.5 g/dL Normal 29.9-35.2 [facility] Comment on above: Performed By: #### C BC ####[facility] Qrlvdjutdy[address] [place], [place] [address]DrKianna Tripathi MCV (RBC) [Entitic vol] 90.5 fL Normal 81.0-99.0 [facility] Comment on above: Performed By: #### C BC ####[facility] Kthkxbfuaf694[address] [place], [place] [address]DrKianna Tripathi MONO # 0.5 103/ul Normal 0.3-0.8 [facility] Comment on above: Performed By: #### C BC ####[facility] Ivspvfchem19[address] [place], [place] [address]DrKianna Tripathi Monocytes/100 WBC (Bld) 7.3 % Normal 1.7-12.0 [facility] Comment on above: Performed By: #### C BC ####[facility] Lmfisvnyzd[address] [place], [place] [address]DrKianna Tripathi NEUT # 5.4 103/ul Normal 1.4-6.5 [facility] Comment on above: Performed By: #### C BC ####[facility] Ifqvfeoyag7[address] [place], [place] [address]DrKianna Tripathi Neutrophils/100 WBC (Bld) 72.4 % Normal 43.0-75.0 [facility] Comment on above: Performed By: #### C BC ####[facility] Ndsvssmehu[address] [place] [address]DrKinana Tripathi Platelet mean volume (Bld) [Entitic vol] 9.1 fL Critically low 9.5-13.5 [facility] Comment on above: Performed By: #### C BC ####[facility] Cxewxrawle[address] [place] [address]DrKianna Tripathi PLT 304 103/ul Normal 150-450 [facility] Comment on above: Performed By: #### C BC ####[facility] Tqizbskxcl7[address] [place], [place] [address]DrKianna Tripathi RBC 3.05 106/ul Critically low 4.20-5.40 [facility] Comment on above: Performed By: #### C BC ####[facility] Mxmwjoahtb1730 [place] [address]DrKianna Tripathi WBC 7.4 103/ul Normal 4.0-11.0 [facility] Comment on above: Performed By: #### C BC ####[facility] Slpjitvlxs8[address] [place], [place] [address]DrKianna Tripathi PROF 14(COMP METB)on 023 Albumin [Mass/Vol] 3.3 g/dL Critically low 3.4-5.0 [facility] Comment on above: Performed By: #### C MP ####[facility] Dljqvmgzlz[address] [place], [place] [address]DrKianna Tripathi Albumin/Globulin [Mass ratio] 0.9 {ratio} Normal [facility] Comment on above: Performed By: #### C MP ####[facility] Qskyeyzxez624[address] [place], [place] [address]DrKianna Tripathi ALP [Catalytic activity/Vol] 127 U/L Critically high 46-116 [facility] Comment on above: Performed By: #### C MP ####[facility] Sqpglsymha8[address] [place], [place] [address]DrKianna Tripathi ALT [Catalytic activity/Vol] 29 U/L Normal 14-59 [facility] Comment on above: Performed By: #### C MP ####[facility] Kqsooeexpf10[address] [place] [address]Dr. Airam Tripathi Anion gap [Moles/Vol] 14.6 mmol/L Normal Th e [facility] Comment on above: Performed By: #### C MP ####[facility] Batqoetyml4[address] [place] [address]Dr. Airam Tripathi AST [Catalytic activity/Vol] 28 U/L Normal 15-37 [facility] Comment on above: Performed By: #### C MP ####[facility] Lmswgqqtgh38[address] [place], [place] [address]Dr. Selenaneil Deuce Bilirubin [Mass/Vol] 0.3 mg/dL Normal 0.2-1.0 [facility] Comment on above: Performed By: #### C MP ####[facility] Bcqvrylshi4[address] [place], [place] [address]Dr. Airam Deuce Calcium [Mass/Vol] 8.9 mg/dL Normal 8.5-10.1 [facility] Comment on above: Performed By: #### C MP ####[facility] Tlfarbrbkg[address] [place], [place] [address]Dr. Airam Deuce Chloride [Moles/Vol] 99 mmol/L Normal 98-107 [facility] Comment on above: Performed By: #### C MP ####[facility] Dvlxkoqdso362[address] [place], [place] [address]Dr. Airam Deuce CO2 [Moles/Vol] 25.1 mmol/L Normal 21.0-32.0 [facility] Comment on above: Performed By: #### C MP ####[facility] Wkngivggeo[address] [place], [place] [address]Dr. Selenaneil Deuce Creatinine [Mass/Vol] 1.42 mg/dL Critically high 0.55-1.02 [facility] Comment on above: Performed By: #### C MP ####[facility] [address]shaglsqyi56[address] [place], [place] [address]Dr. Airam Deuce EGFR-AF LATVIAN 46 mL/min/1.73m2 Critically low >=60 [facility] Comment on above: Performed By: #### C MP ####[facility] [address]jcsuuvin[address] [place] [address]Dr. Airam Deuce EGFR-NON AF LATVIAN 38 mL/min/1.73m2 Critically low >=60 [facility] Comment on above: Performed By: #### C MP ####[facility] Ttnnfvfvyv0[address] [place] [address]Dr. Selenaneil Deuce Globulin (S) [Mass/Vol] 3.6 g/dL Normal [facility] Comment on above: Performed By: #### C MP ####[facility] Rghjijohte37[address] [place] [address]Dr. Selenaneil Deuce Glucose [Mass/Vol] 79 mg/dL Normal 74-106 [facility] Comment on above: Performed By: #### C MP ####[facility] Uovkndqolt[address] [place], [place] [address]Dr. Airam Tripathi Potassium [Moles/Vol] 5.7 mmol/L Critically high 3.5-5.1 [facility] Comment on above: Performed By: #### C MP ####[facility] Zdundvlqlz13[address] [place], [place] [address]Dr. Airam Deuce Protein [Mass/Vol] 6.9 g/dL Normal 6.4-8.2 [facility] Comment on above: Performed By: #### C MP ####[facility] Pbwxzptsgw4468 [place] [address]Dr. Selenaneil Deuce Sodium [Moles/Vol] 133 mmol/L Critically low 136-145 Th [facility] Comment on above: Performed By: #### C MP ####[facility] Rhtpxtekvo9833[address] [place], [place] [address]Dr. Airam Tripathi Urea nitrogen [Mass/Vol] 35.0 mg/dL Critically high 7.0-18.0 [facility] Comment on above: Performed By: #### C MP ####[facility] Uppldszbuf[address] [place], [place] [address]Dr. Airam Tripathi Urea nitrogen/Creatinine [Mass ratio] 24.6 mg/mg Normal [facility] Comment on above: Performed By: #### C MP ####[facility] Xszzrzmnxh[address] [place], [place] [address]DrKianna Tripathi OSMOLALITYon 10-02-2022 Osmolality [Osmolality] 277 mosm/kg Normal 275-295 [facility] Comment on above: Performed By: #### O SMO ####[facility] Owjxrowozi[address] [place], [place] [address]DrKianna Tripathi CBC AUTO DIFFon 09-29-2022 BASO # 0.0 103/ul Normal 0.0-0.1 [facility] Comment on above: Performed By: #### C BC ####[facility] Nhcjljvsaa[address] [place], [place] [address]DrKianna Tripathi Basophils/100 WBC (Bld) 0.5 % Normal 0.2-2.0 [facility] Comment on above: Performed By: #### C BC ####[facility] Ezdzzutcae3864[address] [place], [place] [address]DrKianna Tripathi EO # 0.2 103/ul Normal 0.0-0.7 [facility] Comment on above: Performed By: #### C BC ####[facility] Pfhncdolqb006[address] [place], [place] [address]DrKianna Tripathi Eosinophils/100 WBC (Bld) 3.2 % Normal 0.9-7.0 [facility] Comment on above: Performed By: #### C BC ####[facility] Dpmuzmvpzd8394[address] [place], [place] [address]DrKianna Tripathi Erythrocyte distribution width (RBC) [Ratio] 15.1 % Critically high 11.0-15.0 [facility] Comment on above: Performed By: #### C BC ####[facility] Rcnrrgqnxf[address] [place], [place] [address]DrKianna Tripathi Hematocrit (Bld) [Volume fraction] 26.2 % Critically low 36.0-48.0 [facility] Comment on above: Performed By: #### C BC ####[facility] Ggtbpyehud[address] [place], [place] [address]Dr. Airam Tripathi Hemoglobin (Bld) [Mass/Vol] 8.1 g/dL Critically low 12.0-16.0 [facility] Comment on above: Performed By: #### C BC ####[facility] Aybwjdfdio[address] [place] [address]Dr. Airam Tripathi IG # 0.02 10e3/ul Normal 0.00-0.03 [facility] Comment on above: Performed By: #### C BC ####[facility] Rwrqoedrsy[address] [place], [place] [address]Dr. Airam Tripathi IG % 0.4 % Normal 0.0-0.5 [facility] Comment on above: Performed By: #### C BC ####[facility] Hqzmatznyu[address] [place], [place] [address]DrKianna Tripathi LYMPH # 1.3 103/ul Normal 1.2-3.8 [facility] Comment on above: Performed By: #### C BC ####[facility] Neszhcmejv752[address] [place], [place] [address]Dr. Airam Tripathi Lymphocytes/100 WBC (Bld) 22.6 % Normal 20.5-60.0 [facility] Comment on above: Performed By: #### C BC ####[facility] [address]allknrg[address] [place], [place] [address]DrKianna Tripathi MANUAL DIFF REQ NO Normal [facility] Comment on above: Performed By: #### C BC ####[facility] [address]vzkugzy[address] [place], [place] [address]DrKianna Tripathi MCH (RBC) [Entitic mass] 28.0 pg Normal 26.7-34.0 [facility] Comment on above: Performed By: #### C BC ####[facility] [address]ztdvop[address] [place], [place] [address]Dr. Airam Tripathi MCHC (RBC) [Mass/Vol] 30.9 g/dL Normal 29.9-35.2 [facility] Comment on above: Performed By: #### C BC ####[facility] [address]ouvjdgo[address] [place], [place] [address]DrKianna Tripathi MCV (RBC) [Entitic vol] 90.7 fL Normal 81.0-99.0 [facility] Comment on above: Performed By: #### C BC ####[facility] [address]opshitgj[address] [place] [address] Airam Tripathi MONO # 0.5 103/ul Normal 0.3-0.8 [facility] Comment on above: Performed By: #### C BC ####[facility] Ezkwxtioes[address] [place], [place] [address]DrKianna Airam Rtipathi Monocytes/100 WBC (Bld) 9.6 % Normal 1.7-12.0 [facility] Comment on above: Performed By: #### C BC ####[facility] Swaqtjwnil[address] [place], [place] [address]DrKianna Airam Tripathi NEUT # 3.6 103/ul Normal 1.4-6.5 [facility] Comment on above: Performed By: #### C BC ####[facility] Kgwjpuazbx394[address] [place], [place] [address]DrKianna Airam Tripathi Neutrophils/100 WBC (Bld) 63.7 % Normal 43.0-75.0 [facility] Comment on above: Performed By: #### C BC ####[facility] Wvxfqorumr[address] [place], [place] [address]DrKianna Airam Tripathi Platelet mean volume (Bld) [Entitic vol] 9.4 fL Critically low 9.5-13.5 [facility] Comment on above: Performed By: #### C BC ####[facility] Lzldsrwfhk[address] [place], [place] [address]DrKianna Airam Tripathi PLT 258 103/ul Normal 150-450 [facility] Comment on above: Performed By: #### C BC ####[facility] Bhrcurbbgr88[address] [place], [place] [address]DrKianna Airam Deuce RBC 2.89 106/ul Critically low 4.20-5.40 [facility] Comment on above: Performed By: #### C BC ####[facility] Fykhoiulzm[address] [place], [place] [address]DrKianna Tripathi WBC 5.6 103/ul Normal 4.0-11.0 [facility] Comment on above: Performed By: #### C BC ####[facility] Slhwhnjibb6[address] [place], [place] [address]Dr. Airam Tirpathi PROF 14(COMP METB)on 023 Albumin [Mass/Vol] 3.0 g/dL Critically low 3.4-5.0 [facility] Comment on above: Performed By: #### C MP ####[facility] Ziwdnllhpv[address] [place], [place] [address]Dr. Airam Tripathi Albumin/Globulin [Mass ratio] 1.1 {ratio} Normal [facility] Comment on above: Performed By: #### C MP ####[facility] Kddiwrcuai110[address] [place], [place] [address]Dr. Airam Tripathi ALP [Catalytic activity/Vol] 102 U/L Normal 46-116 [facility] Comment on above: Performed By: #### C MP ####[facility] Ysomavhkys649[address] [place], [place] [address]Dr. Airam Tripathi ALT [Catalytic activity/Vol] 20 U/L Normal 14-59 [facility] Comment on above: Performed By: #### C MP ####[facility] Fgkekdfrmb6[address] [place], [place] [address]Dr. Airam Tripathi Anion gap [Moles/Vol] 11.1 mmol/L Normal [facility] Comment on above: Performed By: #### C MP ####[facility] Yhcejsuvox[address] [place], [place] [address]Dr. Airam Tripathi AST [Catalytic activity/Vol] 18 U/L Normal 15-37 [facility] Comment on above: Performed By: #### C MP ####[facility] Savprosmwe0728[address] [place], [place] [address]Dr. Airam Tripathi Bilirubin [Mass/Vol] 0.2 mg/dL Normal 0.2-1.0 [facility] Comment on above: Performed By: #### C MP ####[facility] Gxbekiqrrz504[address] [place], [place] [address]Dr. Airam Tripathi Calcium [Mass/Vol] 8.0 mg/dL Critically low 8.5-10.1 Th e [facility] Comment on above: Performed By: #### C MP ####[facility] C[address]grheikih[address] [place] [address]Dr. Airam Deuce Chloride [Moles/Vol] 100 mmol/L Normal 98-107 [facility] Comment on above: Performed By: #### C MP ####[facility] Iwfvywqjaq0541 [place] [address]Dr. Airam Deuce CO2 [Moles/Vol] 24.8 mmol/L Normal 21.0-32.0 [facility] Comment on above: Performed By: #### C MP ####[facility] Hwovhpakac20[address] [place], [place] [address]Dr. Airam Deuce Creatinine [Mass/Vol] 1.11 mg/dL Critically high 0.55-1.02 [facility] Comment on above: Performed By: #### C MP ####[facility] Xkmuglqmdd6099[address] [place], [place] [address]Dr. Airam Deuce EGFR-AF LATVIAN >60 Normal >=60 [facility] Comment on above: Performed By: #### C MP ####[facility] Mqxndwravn69[address] [place], [place] [address]Dr. Selenaneil Deuce EGFR-NON AF LATVIAN 50 mL/min/1.73m2 Critically low >=60 [facility] Comment on above: Performed By: #### C MP ####[facility] Tilyxiktnu[address] [place] [address]Dr. Airam Tripathi Globulin (S) [Mass/Vol] 2.8 g/dL Normal [facility] Comment on above: Performed By: #### C MP ####[facility] Ccjgwnzacq775[address] [place], [place] [address]Dr. Airam Tripathi Glucose [Mass/Vol] 77 mg/dL Normal 74-106 [facility] Comment on above: Performed By: #### C MP ####[facility] Ucsbwyqnvi6774 [place] [address]Dr. Airam Tripathi Potassium [Moles/Vol] 4.9 mmol/L Normal 3.5-5.1 [facility] Comment on above: Performed By: #### C MP ####[facility] Ticdpoiqnv7805[address] [place], [place] [address]Dr. Airam Tripathi Protein [Mass/Vol] 5.8 g/dL Critically low 6.4-8.2 Th [facility] Comment on above: Performed By: #### C MP ####[facility] Qkveqqwobv8533[address] [place], [place] [address]Dr. Selenaneil Deuce Sodium [Moles/Vol] 131 mmol/L Critically low 136-145 Th [facility] Comment on above: Performed By: #### C MP ####[facility] Fktlhzyynf5450[address] [place], [place] [address]Dr. Selenaneil Deuce Urea nitrogen [Mass/Vol] 33.0 mg/dL Critically high 7.0-18.0 [facility] Comment on above: Performed By: #### C MP ####[facility] Iqtckkbxjk7216[address] [place], [place] [address]Dr. Selenaneil Deuce Urea nitrogen/Creatinine [Mass ratio] 29.7 mg/mg Normal [facility] Comment on above: Performed By: #### C MP ####[facility] Rihfdtddog709[address] [place], [place] [address]Dr. Airam Deuce ECHOCARDIO M/2D COMPLETEon 0 09-21-2022 ECHOCARDIO M/2D COMPLETE Normal [facility] OSMOLALITYon 09-21-2022 Osmolality [Osmolality] 282 mosm/kg Normal 275-295 [facility] Comment on above: Performed By: #### O SMO ####[facility] Btqvqdarqo8[address] [place], [place] [address]Dr. Airam Tripathi PHOSPHOLIPIDSon 09-21-2022 Phospholipids, Serum 249 mg/dL Normal 151-288 [facility] Comment on above: Performed By: #### P HOSLIP ####[facility] Eukbvizzsr630[address] [place], [place] [address]Dr. Airam Tripathi CBC AUTO DIFFon 09-20-2022 BASO # 0.0 103/ul Normal 0.0-0.1 [facility] Comment on above: Performed By: #### C BC ####[facility] Notnetjafs[address] [place] [id number]. Airam Tripathi Basophils/100 WBC (Bld) 0.5 % Normal 0.2-2.0 [facility] Comment on above: Performed By: #### C BC ####[facility] Askadrhuss[address] [place], [place] [address]Dr. Airam Tripathi EO # 0.2 103/ul Normal 0.0-0.7 [facility] Comment on above: Performed By: #### C BC ####[facility] Eoadcfncce9190[address] [place], [place] [address]Dr. Airam Tirpathi Eosinophils/100 WBC (Bld) 2.9 % Normal 0.9-7.0 [facility] Comment on above: Performed By: #### C BC ####[facility] Pscnqatxvz[address] [place], [place] [address]Dr. Airam Tripathi Erythrocyte distribution width (RBC) [Ratio] 15.4 % Critically high 11.0-15.0 [facility] Comment on above: Performed By: #### C BC ####[facility] Rbwvfbhifr[address] [place], [place] [address]Dr. Airam Tripathi Hematocrit (Bld) [Volume fraction] 26.3 % Critically low 36.0-48.0 [facility] Comment on above: Performed By: #### C BC ####[facility] Zcppwgyqmb64[address] [place], [place] [address]Dr. Airam Tripathi Hemoglobin (Bld) [Mass/Vol] 8.2 g/dL Critically low 12.0-16.0 [facility] Comment on above: Performed By: #### C BC ####[facility] Ubaolvjfuu8[address] [place], [place] [address]Dr. Airam Tripathi IG # 0.03 10e3/ul Normal 0.00-0.03 [facility] Comment on above: Performed By: #### C BC ####[facility] Iewnggvbmb1309[address] [place], [place] [address]Dr. Airam Tripathi IG % 0.4 % Normal 0.0-0.5 [facility] Comment on above: Performed By: #### C BC ####[facility] Krqnfoyaos60[address] [place] [id number]. Airam Tripathi LYMPH # 1.9 103/ul Normal 1.2-3.8 [facility] Comment on above: Performed By: #### C BC ####[facility] Zwiplvdkzk2848 [place] [id number]. Airam Trpiathi Lymphocytes/100 WBC (Bld) 23.0 % Normal 20.5-60.0 [facility] Comment on above: Performed By: #### C BC ####[facility] Axnbmeqxwh280[address] [place] [address]Dr. Airam Tripathi MANUAL DIFF REQ NO Normal [facility] Comment on above: Performed By: #### C BC ####[facility] Kozbvdbimo25[address] [place], [place] [address]Dr. Airam Deuce MCH (RBC) [Entitic mass] 28.5 pg Normal 26.7-34.0 [facility] Comment on above: Performed By: #### C BC ####[facility] Jdnssnpvos[address] [place], [place] [address]Dr. Airam Tripathi MCHC (RBC) [Mass/Vol] 31.2 g/dL Normal 29.9-35.2 [facility] Comment on above: Performed By: #### C BC ####[facility] Pevcdlldsu37[address] [place] [id number]. Airam Tripathi MCV (RBC) [Entitic vol] 91.3 fL Normal 81.0-99.0 [facility] Comment on above: Performed By: #### C BC ####[facility] Afgptiaamk5594 [place] [id number]. Airam Tripathi MONO # 0.7 103/ul Normal 0.3-0.8 [facility] Comment on above: Performed By: #### C BC ####[facility] Fmqobdspbe[address] [place], [place] [address]Dr. Airam Tripathi Monocytes/100 WBC (Bld) 7.7 % Normal 1.7-12.0 [facility] Comment on above: Performed By: #### C BC ####[facility] Avmzeqdixk10[address] [place] [id number]. Airam Tripathi NEUT # 5.5 103/ul Normal 1.4-6.5 [facility] Comment on above: Performed By: #### C BC ####[facility] Fewevubnmp6734 [place] [id number]. Airam Tripathi Neutrophils/100 WBC (Bld) 65.5 % Normal 43.0-75.0 [facility] Comment on above: Performed By: #### C BC ####[facility] K[address]opfrtz[address] [place] [address]Dr. Airam Tripathi Platelet mean volume (Bld) [Entitic vol] 9.1 fL Critically low 9.5-13.5 [facility] Comment on above: Performed By: #### C BC ####[facility] Hzdylewcai8861 [place] [address]Dr. Airam Deuce PLT 258 103/ul Normal 150-450 [facility] Comment on above: Performed By: #### C BC ####[facility] Ceqjeeaodh[address] [place], [place] [address]Dr. Airam Tripathi RBC 2.88 106/ul Critically low 4.20-5.40 [facility] Comment on above: Performed By: #### C BC ####[facility] Cevhxfrygg4[address] [place] [address]Dr. Airam Tripathi WBC 8.4 103/ul Normal 4.0-11.0 [facility] Comment on above: Performed By: #### C BC ####[facility] Oiqsrsmasr[address] [place], [place] [address]DrKianna Selenaneil Tripathi PROF CHEM 8 (BAS METB)on Anion gap [Moles/Vol] 10.3 mmol/L Normal [facility] Comment on above: Performed By: #### B MP ####[facility] Gyalmbltvb[address] [place], [place] [address]DrKianna Airam Deuce Calcium [Mass/Vol] 7.9 mg/dL Critically low 8.5-10.1 [facility] Comment on above: Performed By: #### B MP ####[facility] Dqeputosgi060[address] [place] [address]Dr. Airam Tripathi Chloride [Moles/Vol] 98 mmol/L Normal 98-107 [facility] Comment on above: Performed By: #### B MP ####[facility] Gbcrkvneox2837 [place] [address]Dr. Airam Deuce CO2 [Moles/Vol] 27.5 mmol/L Normal 21.0-32.0 [facility] Comment on above: Performed By: #### B MP ####[facility] Czollucmws2571 [place] [address]Dr. Airam Tripathi Creatinine [Mass/Vol] 1.44 mg/dL Critically high 0.55-1.02 [facility] Comment on above: Performed By: #### B MP ####[facility] Guygvkzulj[address] [place], [place] [address]Dr. Selenaneil Deuce EGFR-AF LATVIAN 45 mL/min/1.73m2 Critically low >=60 [facility] Comment on above: Performed By: #### B MP ####[facility] Mwfbnwrxfo[address] [place], [place] [address]Dr. Airam Deuce EGFR-NON AF LATVIAN 37 mL/min/1.73m2 Critically low >=60 [facility] Comment on above: Performed By: #### B MP ####[facility] Hkcgvwhceq202[address] [place], [place] [address]Dr. Airam Deuce Glucose [Mass/Vol] 91 mg/dL Normal 74-106 [facility] Comment on above: Performed By: #### B MP ####[facility] Tacfefugnl[address] [place], [place] [address]Dr. Airam Tripathi Potassium [Moles/Vol] 4.8 mmol/L Normal 3.5-5.1 [facility] Comment on above: Performed By: #### B MP ####[facility] Agfgjxhwgo684[address] [place], [place] [address]Dr. Airam Tripathi Sodium [Moles/Vol] 131 mmol/L Critically low 136-145 Th [facility] Comment on above: Performed By: #### B MP ####[facility] Rsuvasymej6284 [place] [id number]. Selenaneil Deuce Urea nitrogen [Mass/Vol] 40.0 mg/dL Critically high 7.0-18.0 [facility] Comment on above: Performed By: #### B MP ####[facility] Hkwvbyxinc86[address] [place] [address]Dr. Ariam Tripathi Urea nitrogen/Creatinine [Mass ratio] 27.8 mg/mg Normal [facility] Comment on above: Performed By: #### B MP ####[facility] Zcujlitgty9[address] [place], [place] [address]Dr. Airam Tripathi Anion gap [Moles/Vol] 10.6 mmol/L Normal [facility] Comment on above: Performed By: #### B MP ####[facility] Gtfwvsehlh345[address] [place], [place] [address]Dr. Airam Tripathi Calcium [Mass/Vol] 7.9 mg/dL Critically low 8.5-10.1 [facility] Comment on above: Performed By: #### B MP ####[facility] Vihyfmhzdh5[address] [place], [place] [address]Dr. Airam Tripathi Chloride [Moles/Vol] 101 mmol/L Normal 98-107 [facility] Comment on above: Performed By: #### B MP ####[facility] Mfozgufonu[address] [place], [place] [address]Dr. Airam Tripathi CO2 [Moles/Vol] 27.4 mmol/L Normal 21.0-32.0 [facility] Comment on above: Performed By: #### B MP ####[facility] Vcvhyuovzb427[address] [place], [place] [address]Dr. Airam Tripathi Creatinine [Mass/Vol] 1.35 mg/dL Critically high 0.55-1.02 [facility] Comment on above: Performed By: #### B MP ####[facility] Iosxjtvogs[address] [place], [place] [address]Dr. Airam Tripathi EGFR-AF LATVIAN 48 mL/min/1.73m2 Critically low >=60 [facility] Comment on above: Performed By: #### B MP ####[facility] Aunhtzfmim[address] [place] [address]Dr. Airam Deuce EGFR-NON AF LATVIAN 40 mL/min/1.73m2 Critically low >=60 [facility] Comment on above: Performed By: #### B MP ####[facility] Pppeksactk8155 [place] [address]Dr. Airam Tripathi Glucose [Mass/Vol] 114 mg/dL Critically high 74-106 [facility] Comment on above: Performed By: #### B MP ####[facility] Qkvdrhaxbg6395 [place] [address]Dr. Airam Tripathi Potassium [Moles/Vol] 5.0 mmol/L Normal 3.5-5.1 [facility] Comment on above: Performed By: #### B MP ####[facility] Hbemuktxfp0[address] [place], [place] [address]Dr. Airam Tripathi Sodium [Moles/Vol] 134 mmol/L Critically low 136-145 [facility] Comment on above: Performed By: #### B MP ####[facility] Lrbktdowsd[address] [place], [place] [address]Dr. Airam Tripathi Urea nitrogen [Mass/Vol] 40.0 mg/dL Critically high 7.0-18.0 [facility] Comment on above: Performed By: #### B MP ####[facility] Beasxihvsq27[address] [place], [place] [address]Dr. Airam Tripathi Urea nitrogen/Creatinine [Mass ratio] 29.6 mg/mg Normal [facility] Comment on above: Performed By: #### B MP ####[facility] Abxajoqtvq355[address] [place], [place] [address]Dr. Airam Tripathi PTH INTACTon 09-20-2022 PTH, Intact 104 pg/mL Critically high 15-65 [facility] Comment on above: Performed By: #### P THINT ####[facility] Voksbhkqhe[address] [place], [place] [address]Dr. Airam Tripathi BNPon 09-19-2022 Natriuretic peptide B (Bld) [Mass/Vol] 1272.0 pg/mL Critically high <=900.0 [facility] Comment on above: Performed By: #### H STROPN, TSH, K, BNP ####[facility] Jmtjyidpmk[address] [place] [address]Dr. Airam Tripathi CBC AUTO DIFFon 09-19-2022 BASO # 0.0 103/ul Normal 0.0-0.1 [facility] Comment on above: Performed By: #### C BC ####[facility] Yphfjlmhbs[address] [place], [place] [address]Dr. Airam Deuce Basophils/100 WBC (Bld) 0.5 % Normal 0.2-2.0 [facility] Comment on above: Performed By: #### C BC ####[facility] Gfjezbtfcx9[address] [place], [place] [address]Dr. Airam Tripathi EO # 0.2 103/ul Normal 0.0-0.7 [facility] Comment on above: Performed By: #### C BC ####[facility] Fxteghpwgg86[address] [place], [place] [address]Dr. Selenaneil Tripathi Eosinophils/100 WBC (Bld) 2.6 % Normal 0.9-7.0 [facility] Comment on above: Performed By: #### C BC ####[facility] S[address]bshampj[address] [place], [place] [address]Dr. Airam Tripathi Erythrocyte distribution width (RBC) [Ratio] 15.5 % Critically high 11.0-15.0 [facility] Comment on above: Performed By: #### C BC ####[facility] Pipzvnhexy[address] [place], [place] [address]Dr. Airam Tripathi Hematocrit (Bld) [Volume fraction] 31.1 % Critically low 36.0-48.0 [facility] Comment on above: Performed By: #### C BC ####[facility] Ylpiiggunj[address] [place], [place] [address]Dr. Airam Tripathi Hemoglobin (Bld) [Mass/Vol] 9.6 g/dL Critically low 12.0-16.0 [facility] Comment on above: Performed By: #### C BC ####[facility] Wmwzttaoje[address] [place] [id number]. Airam Tripathi IG # 0.04 10e3/ul Critically high 0.00-0.03 [facility] Comment on above: Performed By: #### C BC ####[facility] Zoouzcfloz[address] [place] [address]Dr. Airam Deuce IG % 0.5 % Normal 0.0-0.5 [facility] Comment on above: Performed By: #### C BC ####[facility] Zshlrxsynm87[address] [place] [address]Dr. Airam Tripathi LYMPH # 1.0 103/ul Critically low 1.2-3.8 [facility] Comment on above: Performed By: #### C BC ####[facility] Lojamltihu[address] [place] [address]Dr. Airam Tripathi Lymphocytes/100 WBC (Bld) 12.0 % Critically low 20.5-60.0 [facility] Comment on above: Performed By: #### C BC ####[facility] Rqfmdrdfyo67[address] [place] [address]Dr. Selenaneil Tripathi MANUAL DIFF REQ NO Normal [facility] Comment on above: Performed By: #### C BC ####[facility] Uivbjjnkhi[address] [place] [address]Dr. Airam Deuce MCH (RBC) [Entitic mass] 28.2 pg Normal 26.7-34.0 [facility] Comment on above: Performed By: #### C BC ####[facility] Cxjwfgbmxi2678 [place] [address]Dr. Airam Deuce MCHC (RBC) [Mass/Vol] 30.9 g/dL Normal 29.9-35.2 [facility] Comment on above: Performed By: #### C BC ####[facility] Hucoldpgwp12[address] [place] [address]DrKianna Airam Deuce MCV (RBC) [Entitic vol] 91.5 fL Normal 81.0-99.0 [facility] Comment on above: Performed By: #### C BC ####[facility] Svfgllqtfl4[address] [place] [id number]. Airam Tripathi MONO # 0.5 103/ul Normal 0.3-0.8 [facility] Comment on above: Performed By: #### C BC ####[facility] Tyhhgllzdi40[address] [place] [address]Dr. Airam Tripathi Monocytes/100 WBC (Bld) 6.4 % Normal 1.7-12.0 [facility] Comment on above: Performed By: #### C BC ####[facility] Icgmuowjfg36[address] [place] [address]Dr. Airam Tripathi NEUT # 6.4 103/ul Normal 1.4-6.5 [facility] Comment on above: Performed By: #### C BC ####[facility] Shnyrwiumd10[address] [place] [address]Dr. Airam Tripathi Neutrophils/100 WBC (Bld) 78.0 % Critically high 43.0-75.0 [facility] Comment on above: Performed By: #### C BC ####[facility] Rkwidyfnnl8401 [place] [address]Dr. Airam Tripathi Platelet mean volume (Bld) [Entitic vol] 9.1 fL Critically low 9.5-13.5 [facility] Comment on above: Performed By: #### C BC ####[facility] Tirocscvto39[address] [place] [address]Dr. Airam Tripathi PLT 318 103/ul Normal 150-450 [facility] Comment on above: Performed By: #### C BC ####[facility] [address]bpohsercd[address] [place], [place] [address]Dr. Airam Tripathi RBC 3.40 106/ul Critically low 4.20-5.40 [facility] Comment on above: Performed By: #### C BC ####[facility] [address]ptqhmjhf[address] [place], [place] [address]Dr. Airam Tripathi WBC 8.2 103/ul Normal 4.0-11.0 [facility] Comment on above: Performed By: #### C BC ####[facility] Wwhjqawfyi[address] [place], [place] [address]Dr. Airam Tripathi Covid-19 PCR (CVDTBH)on 08-25 SARS-CoV-2 (COVID-19) RNA MIKE+probe Ql (Unsp spec) Not detected Normal NOT DETECTED [facility] Comment on above: Result Comment: When diagnostic [...] for this test is supported by the Software Engineer Developer of Health and Human Service's declaration that [...] used). Performed By: #### C VDTBH ####[facility] Znelmgcjnm70[address] [place] [address]Dr. Airam Tripathi LACTATE/LACTIC ACIDon 2022 Lactate [Moles/Vol] 0.4 mmol/L Normal 0.4-2.0 [facility] Comment on above: Performed By: #### L ACT ####[facility] Itmbccxwtg[address] [place], [place] [address]Dr. Airam Tripathi POTASSIUMon 09-19-2022 Potassium [Moles/Vol] 6.3 mmol/L Critically high 3.5-5.1 [facility] Comment on above: Performed By: #### H STROPN, TSH, K, BNP ####[facility] Ihwqilfwxn7[address] [place] [address]Dr. Airam Tripathi PROF 14(COMP METB)on 023 Albumin [Mass/Vol] 3.5 g/dL Normal 3.4-5.0 [facility] Comment on above: Performed By: #### C MP ####[facility] Apqmqoqdkv6896 [place] [id number]. Airam Tripathi Albumin/Globulin [Mass ratio] 1.1 {ratio} Normal [facility] Comment on above: Performed By: #### C MP ####[facility] Jkgwezwxew6127 [place] [id number]. Airam Tripathi ALP [Catalytic activity/Vol] 113 U/L Normal 46-116 [facility] Comment on above: Performed By: #### C MP ####[facility] Nwlnjpdepl2565 [place] [address]Dr. Airam Deuce ALT [Catalytic activity/Vol] 26 U/L Normal 14-59 [facility] Comment on above: Performed By: #### C MP ####[facility] Qjvedoivir2105 [place] [address]Dr. Airam Tripathi Anion gap [Moles/Vol] 11.5 mmol/L Normal [facility] Comment on above: Performed By: #### C MP ####[facility] Yebgrnbtez[address] [place], [place] [address]Dr. Airam Deuce AST [Catalytic activity/Vol] 24 U/L Normal 15-37 [facility] Comment on above: Performed By: #### C MP ####[facility] Glnjfwogzk[address] [place], [place] [address]Dr. Airam Deuce Bilirubin [Mass/Vol] 0.3 mg/dL Normal 0.2-1.0 [facility] Comment on above: Performed By: #### C MP ####[facility] Okpctodwig[address] [place], [place] [address]Dr. Selenaneil Tripathi Calcium [Mass/Vol] 8.9 mg/dL Normal 8.5-10.1 [facility] Comment on above: Performed By: #### C MP ####[facility] [facility] Quavpqpwul[address] [place], [place] [address]Dr. Airam Tripathi Chloride [Moles/Vol] 103 mmol/L Normal 98-107 [facility] Comment on above: Performed By: #### C MP ####[facility] Aphuwfbvjq[address] [place], [place] [address]Dr. Airam Tripathi CO2 [Moles/Vol] 27.8 mmol/L Normal 21.0-32.0 [facility] Comment on above: Performed By: #### C MP ####[facility] Apsbaqdqqp[address] [place] [address]Dr. Airam Tripathi Creatinine [Mass/Vol] 1.28 mg/dL Critically high 0.55-1.02 [facility] Comment on above: Performed By: #### C MP ####[facility] Rosuwnubdd40[address] [place] [address]Dr. Airam Tripathi EGFR-AF LATVIAN 52 mL/min/1.73m2 Critically low >=60 [facility] Comment on above: Performed By: #### C MP ####[facility] Jtvojfercv[address] [place], [place] [address]Dr. Airam Deuce EGFR-NON AF LATVIAN 43 mL/min/1.73m2 Critically low >=60 [facility] Comment on above: Performed By: #### C MP ####[facility] [address]af[address]pb[address] [place], [place] [address]Dr. Airam Tripathi Globulin (S) [Mass/Vol] 3.2 g/dL Normal [facility] Comment on above: Performed By: #### C MP ####[facility] Opoxknigpv24[address] [place], [place] [address]Dr. Airam Deuce Glucose [Mass/Vol] 95 mg/dL Normal 74-106 [facility] Comment on above: Performed By: #### C MP ####[facility] Vjqyahatel[address] [place], [place] [address]Dr. Airam Deuce Potassium [Moles/Vol] 6.3 mmol/L Critically high 3.5-5.1 [facility] Comment on above: Performed By: #### C MP ####[facility] Fxyvxmgljh[address] [place], [place] [address]Dr. Airam Tripathi Protein [Mass/Vol] 6.7 g/dL Normal 6.4-8.2 [facility] Comment on above: Performed By: #### C MP ####[facility] Ewbamwrgvo[address] [place], [place] [address]Dr. Airam Tripathi Sodium [Moles/Vol] 135 mmol/L Critically low 136-145 [facility] Comment on above: Performed By: #### C MP ####[facility] Evnhdfratu[address] [place] [address]Dr. Airam Tripathi Urea nitrogen [Mass/Vol] 42.0 mg/dL Critically high 7.0-18.0 [facility] Comment on above: Performed By: #### C MP ####[facility] Bzledxjasc[address] [place] [address]Dr. Airam Deuce Urea nitrogen/Creatinine [Mass ratio] 32.8 mg/mg Normal [facility] Comment on above: Performed By: #### C MP ####[facility] Hkuafcbdau4[address] [place] [address]Dr. Airam Deuce TROPONIN, HIGH SENSITIVITYon 09-19-2022 HSTROP 7.1 pg/mL Normal 4.0-51.3 [facility] Comment on above: Result Comment: CUT- OFF POINTS HAVE BEEN ESTABLISHED BASED ON THE FOURTH UNIVERSAL DEFINITIONS OF MYOCARDIALINFARCTION. THE UPPER REFERENCE LIMIT (URL) OF TROPONIN, DEFINED THE 99TH PERCENTILE OFcTnI DISTRIBUTION IN A REFERENCE POPULATION, HAS BEEN CONFIRMED THE DECISION THRESHOLDFOR WA DIAGNOSIS. Performed By: #### H STROPN, TSH, K, BNP ####[facility] Uqjdxiasvo6[address] [place] [address]Dr. Airam Tripathi TSHon 09-19-2022 TSH 0.028 uIU/mL Critically low 0.358-3.740 [facility] Comment on above: Performed By: #### H STROPN, TSH, K, BNP ####[facility] Oildzpigsm[address] [place] [address]Dr. Airam Tripathi UA RANDOMon 09-19-2022 Bilirubin Ql (U) Negative Normal NEGATIVE [facility] Comment on above: Performed By: #### U A ####[facility] Zxgwkkakgm6729 [place] [address]Dr. Airam Tripathi Clarity (U) CLEAR Normal CLEAR [facility] Comment on above: Performed By: #### U A ####[facility] Luaxizxrpv6699 [place] [address]Dr. Airam Tripathi Color (U) LT. YELLOW Normal YELLOW [facility] Comment on above: Performed By: #### U A ####[facility] Aidvumvbuy1774 [place] [address]Dr. Airam Tripathi Glucose Ql (U) Negative Normal NEGATIVE [facility] Comment on above: Performed By: #### U A ####[facility] Rsepqlqvin[address] [place], [place] [address]Dr. Airam Tripathi Hemoglobin Ql (U) Negative Normal NEGATIVE [facility] Comment on above: Performed By: #### U A ####[facility] Ighrobfzba15[address] [place], [place] [address]Dr. Airam Tripathi Ketones Ql (U) Negative Normal NEGATIVE [facility] Comment on above: Performed By: #### U A ####[facility] Qawamjdbuw[address] [place], [place] [address]Dr. Airam Tripathi LEUKOCYTES TRACE Abnormal NEGATIVE [facility] Comment on above: Performed By: #### U A ####[facility] Bpkrwbomht[address] [place], [place] [address]Dr. Airam Tripathi Nitrite Ql (U) Negative Normal NEGATIVE [facility] Comment on above: Performed By: #### U A ####[facility] Blpfoivcyn[address] [place], [place] [address]Dr. Airam Tripathi pH (U) 5.5 [pH] Normal 5-9 [facility] Comment on above: Performed By: #### U A ####[facility] Ornhdoapky[address] [place], [place] [address]Dr. Airam Tripathi SPEC GRAVITY 1.010 Normal 1.005-<=1.02 5 [facility] Comment on above: Performed By: #### U A ####[facility] [address]nzwgyqqbm25[address] [place], [place] [address]Dr. Airam Tripathi UA PROTEIN Negative Normal NEGATIVE/ TRACE [facility] Comment on above: Performed By: #### U A ####[facility] Xawrrsenkk[address] [place], [place] [address]Dr. Airam Tripathi Urobilinogen Qn (U) 0.2 {Ligia'U}/dL Normal 0.2 - 1. 0 [facility] Comment on above: Performed By: #### U A ####[facility] Gzdbuwfoce88[address] [place] [address]Dr. Airam Tripathi URIC ACID SERUMon 09-19-2022 Urate [Mass/Vol] 6.9 mg/dL Critically high 2.6-6.0 [facility] Comment on above: Performed By: #### U TRESSA ####[facility] [address]qzljl[address] [place], [place] [address]Dr. Airam Tripathi URINE T PROTEIN CREAT RATIOo n 09-19-2022 UR TOTAL PROTEIN <6.0 Normal <=12.0 [facility] Comment on above: Performed By: #### U RTPCR ####[facility] Vjefftojlt0[address] [place], [place] [address]Dr. Airam Tripathi URINE CREAT 15.12 mg/dL Critically low 20.00-300.00 [facility] Comment on above: Performed By: #### U RTPCR ####[facility] Twczmnfqmu4[address] [place], [place] [address]Dr. Airam Tripathi VITAMIN D 25 OHon 09-19-2022 VIT D 25-OH 75.9 ng/mL Normal [facility] Comment on above: Performed By: #### V ITAD ####[facility] Snnbloaczt[address] [place], [place] [address]Dr. Airam Tripathi VIT D RANGES SEE BELOW Normal [facility] Comment on above: Result Comment: <20 ng/mL Vit D deficient 20 - <30 ng/mL Vit D insufficient 30 - 100 ng/mL Vit D sufficient >100 ng/mL Potential Toxicity Performed By: #### V ITAD ####[facility] [address]xkfepv[address] [place], [place] [address]Dr. Airam Tripathi OSMOLALITYon 09-14-2022 Osmolality [Osmolality] 272 mosm/kg Critically low 275-295 [facility] Comment on above: Performed By: #### O SMO ####[facility] Saxbsfbhtu2[address] [place], [place] [address]Dr. Airam Tripathi CBC AUTO DIFFon 09-12-2022 BASO # 0.0 103/ul Normal 0.0-0.1 [facility] Comment on above: Performed By: #### C BC ####[facility] Jejmywitmd27[address] [place] [address]Dr. Airam Tripathi Basophils/100 WBC (Bld) 0.5 % Normal 0.2-2.0 [facility] Comment on above: Performed By: #### C BC ####[facility] Hduddkjtsi4120 [place] [address]Dr. Airam Tripathi EO # 0.2 103/ul Normal 0.0-0.7 [facility] Comment on above: Performed By: #### C BC ####[facility] Uzrxfeqmsv9669 [place] [address]Dr. Airam Tripathi Eosinophils/100 WBC (Bld) 2.4 % Normal 0.9-7.0 [facility] Comment on above: Performed By: #### C BC ####[facility] Garxarvbmn[address] [place], [place] [address]Dr. Airam Tripathi Erythrocyte distribution width (RBC) [Ratio] 14.8 % Normal 11.0-15.0 [facility] Comment on above: Performed By: #### C BC ####[facility] Gusqtqklyk8737 [place] [address]Dr. Airam Tripathi Hematocrit (Bld) [Volume fraction] 32.6 % Critically low 36.0-48.0 [facility] Comment on above: Performed By: #### C BC ####[facility] [address]adt[address] [place], [place] [address]Dr. Airam Tripathi Hemoglobin (Bld) [Mass/Vol] 10.1 g/dL Critically low 12.0-16.0 [facility] Comment on above: Performed By: #### C BC ####[facility] H[address]opkb[address] [place], [place] [address]Dr. Airam Tripathi IG # 0.05 10e3/ul Critically high 0.00-0.03 [facility] Comment on above: Performed By: #### C BC ####[facility] Egnxfcfvtl87[address] [place] [id number]. Airam Tripathi IG % 0.7 % Critically high 0.0-0.5 [facility] Comment on above: Performed By: #### C BC ####[facility] Mzmopwbpik0024 [place] [id number]. Airam Tripathi LYMPH # 1.9 103/ul Normal 1.2-3.8 [facility] Comment on above: Performed By: #### C BC ####[facility] Lltnnkxpyt8864 [place] [id number]. Airam Tripathi Lymphocytes/100 WBC (Bld) 24.7 % Normal 20.5-60.0 [facility] Comment on above: Performed By: #### C BC ####[facility] Gsmfgicjid75[address] [place] [address]Dr. Airam Tripathi MANUAL DIFF REQ NO Normal [facility] Comment on above: Performed By: #### C BC ####[facility] Lwlelmjgyi0054 [place] [address]Dr. Airam Tripathi MCH (RBC) [Entitic mass] 28.0 pg Normal 26.7-34.0 [facility] Comment on above: Performed By: #### C BC ####[facility] Ijwhipmvul3417 [place] [id number]. Airam Tripathi MCHC (RBC) [Mass/Vol] 31.0 g/dL Normal 29.9-35.2 [facility] Comment on above: Performed By: #### C BC ####[facility] Cbugcqubop1449 [place] [id number]. Airam Tripathi MCV (RBC) [Entitic vol] 90.3 fL Normal 81.0-99.0 [facility] Comment on above: Performed By: #### C BC ####[facility] Qucfwlqmef5296 [place] [address]Dr. Airam Deuce MONO # 0.5 103/ul Normal 0.3-0.8 [facility] Comment on above: Performed By: #### C BC ####[facility] Iiyceomudc3081 [place] [id number]. Airam Tripathi Monocytes/100 WBC (Bld) 6.0 % Normal 1.7-12.0 [facility] Comment on above: Performed By: #### C BC ####[facility] Srhvlmqdgh3[address] [place] [id number]. Airam Tripathi NEUT # 5.0 103/ul Normal 1.4-6.5 [facility] Comment on above: Performed By: #### C BC ####[facility] Gixiosxcxe0764 [place] [address]Dr. Airam Tripathi Neutrophils/100 WBC (Bld) 65.7 % Normal 43.0-75.0 [facility] Comment on above: Performed By: #### C BC ####[facility] Csllfcrhya8388 [place] [address]Dr. Airam Tripathi Platelet mean volume (Bld) [Entitic vol] 9.5 fL Normal 9.5-13.5 [facility] Comment on above: Performed By: #### C BC ####[facility] Nmnrlazovz8773 [place] [id number]. Airam Tripathi PLT 307 103/ul Normal 150-450 [facility] Comment on above: Performed By: #### C BC ####[facility] Sdzsxjdhoh5687 [place] [id number]. Airam Tripathi RBC 3.61 106/ul Critically low 4.20-5.40 [facility] Comment on above: Performed By: #### C BC ####[facility] Paztgpeacz1219 [place] [address]Dr. Airam Tripathi WBC 7.5 103/ul Normal 4.0-11.0 [facility] Comment on above: Performed By: #### C BC ####[facility] Kqvmhdbbkj9073 [place] [address]Dr. Airam Deuce PROF 14(COMP METB)on 023 Albumin [Mass/Vol] 3.5 g/dL Normal 3.4-5.0 [facility] Comment on above: Performed By: #### C MP ####[facility] Jkblxdbrso3952 [place] [address]Dr. Airam Tripathi Albumin/Globulin [Mass ratio] 1.1 {ratio} Normal [facility] Comment on above: Performed By: #### C MP ####[facility] Vhssaaddlp3285 [place] [address]Dr. Airam Deuce ALP [Catalytic activity/Vol] 126 U/L Critically high 46-116 [facility] Comment on above: Performed By: #### C MP ####[facility] Vbrsfjwoqf[address] [place], [place] [address]Dr. Airam Deuce ALT [Catalytic activity/Vol] 18 U/L Normal 14-59 [facility] Comment on above: Performed By: #### C MP ####[facility] Flbfhnpipt3419 [place] [address]Dr. Airam Tripathi Anion gap [Moles/Vol] 11.1 mmol/L Normal [facility] Comment on above: Performed By: #### C MP ####[facility] Uycxoujroy[address] [place], [place] [address]Dr. Airam Deuce AST [Catalytic activity/Vol] 26 U/L Normal 15-37 [facility] Comment on above: Performed By: #### C MP ####[facility] Abivcwxntm[address] [place], [place] [address]Dr. Selenaneil Tripathi Bilirubin [Mass/Vol] 0.3 mg/dL Normal 0.2-1.0 [facility] Comment on above: Performed By: #### C MP ####[facility] Cbbswiyshl[address] [place], [place] [address]Dr. Selenaneil Tripathi Calcium [Mass/Vol] 8.5 mg/dL Normal 8.5-10.1 [facility] Comment on above: Performed By: #### C MP ####[facility] Dhswrfunnj7[address] [place], [place] [address]Dr. Airam Tripathi Chloride [Moles/Vol] 98 mmol/L Normal 98-107 [facility] Comment on above: Performed By: #### C MP ####[facility] Qulosjlbiw2530[address] [place], [place] [address]Dr. Airam Deuce CO2 [Moles/Vol] 23.9 mmol/L Normal 21.0-32.0 [facility] Comment on above: Performed By: #### C MP ####[facility] Rwkstxmuox7761 [place] [address]Dr. Airam Deuce Creatinine [Mass/Vol] 1.40 mg/dL Critically high 0.55-1.02 [facility] Comment on above: Performed By: #### C MP ####[facility] Kktcbokxki[address] [place], [place] [address]Dr. Airam Deuce EGFR-AF LATVIAN 46 mL/min/1.73m2 Critically low >=60 [facility] Comment on above: Performed By: #### C MP ####[facility] Y[address]nmkxjy9[address] [place], [place] [address]Dr. Selenaneil Deuce EGFR-NON AF LATVIAN 38 mL/min/1.73m2 Critically low >=60 [facility] Comment on above: Performed By: #### C MP ####[facility] Yfwgfhuflx[address] [place], [place] [address]Dr. Airam Deuce Globulin (S) [Mass/Vol] 3.3 g/dL Normal [facility] Comment on above: Performed By: #### C MP ####[facility] Alkyqvgwhc9[address] [place], [place] [address]Dr. Airam Tripathi Glucose [Mass/Vol] 72 mg/dL Critically low 74-106 [facility] Comment on above: Performed By: #### C MP ####[facility] Cxgsmfeioa3139[address] [place], [place] [address]Dr. Airam Deuce Potassium [Moles/Vol] 5.0 mmol/L Normal 3.5-5.1 [facility] Comment on above: Performed By: #### C MP ####[facility] Dlrrtbldvn9[address] [place], [place] [address]Dr. Airam Tripathi Protein [Mass/Vol] 6.8 g/dL Normal 6.4-8.2 [facility] Comment on above: Performed By: #### C MP ####[facility] Rfmmtscbpt[address] [place], [place] [address]Dr. Airam Tripathi Sodium [Moles/Vol] 128 mmol/L Critically low 136-145 [facility] Comment on above: Performed By: #### C MP ####[facility] Cevglxyquq32[address] [place], [place] [address]Dr. Airam Tripathi Urea nitrogen [Mass/Vol] 27.0 mg/dL Critically high 7.0-18.0 [facility] Comment on above: Performed By: #### C MP ####[facility] Atjnivzvbc8174[address] [place], [place] [address]Dr. Airam Tripathi Urea nitrogen/Creatinine [Mass ratio] 19.3 mg/mg Normal [facility] Comment on above: Performed By: #### C MP ####[facility] Zeqacdcmgf7[address] [place], [place] [address]Dr. Airam Tripathi OSMOLALITYon 09-10-2022 Osmolality [Osmolality] 275 mosm/kg Normal 275-295 [facility] Comment on above: Performed By: #### O SMO ####[facility] [address]uvqzklg[address] [place], [place] [address]Dr. Airam Tripathi CBC AUTO DIFFon 09-08-2022 BASO # 0.0 103/ul Normal 0.0-0.1 [facility] Comment on above: Performed By: #### C BC ####[facility] [address]tavfulev[address] [place], [place] [address]Dr. Airam Deuce Basophils/100 WBC (Bld) 0.5 % Normal 0.2-2.0 [facility] Comment on above: Performed By: #### C BC ####[facility] Ayoldlgjjj5[address] [place], [place] [address]Dr. Airam Tripathi EO # 0.1 103/ul Normal 0.0-0.7 [facility] Comment on above: Performed By: #### C BC ####[facility] Zpcnnamfqr[address] [place], [place] [address]Dr. Airam Deuce Eosinophils/100 WBC (Bld) 1.7 % Normal 0.9-7.0 [facility] Comment on above: Performed By: #### C BC ####[facility] Wcyogvjhch4227 [place] [address]Dr. Airam Tripathi Erythrocyte distribution width (RBC) [Ratio] 14.7 % Normal 11.0-15.0 [facility] Comment on above: Performed By: #### C BC ####[facility] Nxacymnyen4709 [place] [address]Dr. Airam Tripathi Hematocrit (Bld) [Volume fraction] 30.3 % Critically low 36.0-48.0 [facility] Comment on above: Performed By: #### C BC ####[facility] [address]izvuiwnh[address] [place], [place] [address]Dr. Airam Tripathi Hemoglobin (Bld) [Mass/Vol] 9.3 g/dL Critically low 12.0-16.0 [facility] Comment on above: Performed By: #### C BC ####[facility] I[address]ghqoetum[address] [place], [place] [address]Dr. Airam Tripathi IG # 0.03 10e3/ul Normal 0.00-0.03 [facility] Comment on above: Performed By: #### C BC ####[facility] Pegweririx74[address] [place], [place] [address]Dr. Airam Tripathi IG % 0.5 % Normal 0.0-0.5 [facility] Comment on above: Performed By: #### C BC ####[facility] Kjvhysvjob[address] [place], [place] [address]Dr. Airam Tripathi LYMPH # 0.9 103/ul Critically low 1.2-3.8 [facility] Comment on above: Performed By: #### C BC ####[facility] Lhralugmhl[address] [place], [place] [address]Dr. Airam Deuce Lymphocytes/100 WBC (Bld) 13.6 % Critically low 20.5-60.0 [facility] Comment on above: Performed By: #### C BC ####[facility] [address]vrtseui[address] [place], [place] [address]Dr. Airam Tripathi MANUAL DIFF REQ NO Normal [facility] Comment on above: Performed By: #### C BC ####[facility] Hkcsbwbycg2588 [place] [id number]. Airam Tripathi MCH (RBC) [Entitic mass] 27.4 pg Normal 26.7-34.0 [facility] Comment on above: Performed By: #### C BC ####[facility] Fulzkubnan3420 [place] [id number]. Airam Tripathi MCHC (RBC) [Mass/Vol] 30.7 g/dL Normal 29.9-35.2 [facility] Comment on above: Performed By: #### C BC ####[facility] Fycoiqxqnk[address] [place], [place] [address]Dr. Airam Tripathi MCV (RBC) [Entitic vol] 89.4 fL Normal 81.0-99.0 [facility] Comment on above: Performed By: #### C BC ####[facility] Eekpguoztp[address] [place], [place] [address]Dr. Airam Deuce MONO # 0.5 103/ul Normal 0.3-0.8 [facility] Comment on above: Performed By: #### C BC ####[facility] Sso[address]wsyy[address] [place], [place] [address]Dr. Airam Deuce Monocytes/100 WBC (Bld) 8.0 % Normal 1.7-12.0 [facility] Comment on above: Performed By: #### C BC ####[facility] Mexim[address]xdo[address] [place], [place] [address]Dr. Airam Tripathi NEUT # 5.0 103/ul Normal 1.4-6.5 [facility] Comment on above: Performed By: #### C BC ####[facility] Ykghxvxcqi[address] [place], [place] [address]Dr. Airam Deuce Neutrophils/100 WBC (Bld) 75.7 % Critically high 43.0-75.0 [facility] Comment on above: Performed By: #### C BC ####[facility] [address]vovajmepn[address] [place], [place] [address]Dr. Airam Deuce Platelet mean volume (Bld) [Entitic vol] 10.4 fL Normal 9.5-13.5 [facility] Comment on above: Performed By: #### C BC ####[facility] Qqyodgshza4181 [place] [id number]. Airam Tripathi PLT 315 103/ul Normal 150-450 [facility] Comment on above: Performed By: #### C BC ####[facility] Vchpsrdtgw5793 [place] [id number]. Airam Tripathi RBC 3.39 106/ul Critically low 4.20-5.40 [facility] Comment on above: Performed By: #### C BC ####[facility] Pqftwltkug1124 [place] [id number]. Airam Tripathi WBC 6.5 103/ul Normal 4.0-11.0 [facility] Comment on above: Performed By: #### C BC ####[facility] Ugcdhhzrir2441 [place] [address]Dr. Airam Tripathi PROF 14(COMP METB)on 023 Albumin [Mass/Vol] 3.1 g/dL Critically low 3.4-5.0 [facility] Comment on above: Performed By: #### C MP ####[facility] Giqqojmuht79[address] [place] [address]Dr. Airam Tripathi Albumin/Globulin [Mass ratio] 1.0 {ratio} Normal [facility] Comment on above: Performed By: #### C MP ####[facility] Cofvleffox33[address] [place] [address]Dr. Airam Tripathi ALP [Catalytic activity/Vol] 126 U/L Critically high 46-116 [facility] Comment on above: Performed By: #### C MP ####[facility] Wrgaevjcsi1390 [place] [address]Dr. Airam Tripathi ALT [Catalytic activity/Vol] 18 U/L Normal 14-59 [facility] Comment on above: Performed By: #### C MP ####[facility] Gnmxmjrnhb8785 [place] [address]Dr. Airam Tripathi Anion gap [Moles/Vol] 11.4 mmol/L Normal [facility] Comment on above: Performed By: #### C MP ####[facility] Zmukwdvyrm4475 [place] [id number]. Airam Tripathi AST [Catalytic activity/Vol] 25 U/L Normal 15-37 [facility] Comment on above: Performed By: #### C MP ####[facility] Faswudrmos6122 [place] [id number]. Airam Tripathi Bilirubin [Mass/Vol] 0.3 mg/dL Normal 0.2-1.0 [facility] Comment on above: Performed By: #### C MP ####[facility] Kswnfxgtup8802 [place] [address]Dr. Airam Tripathi Calcium [Mass/Vol] 8.6 mg/dL Normal 8.5-10.1 [facility] Comment on above: Performed By: #### C MP ####[facility] Exmgtuuksk4[address] [place] [address]Dr. Airam Tripathi Chloride [Moles/Vol] 97 mmol/L Critically low 98-107 [facility] Comment on above: Performed By: #### C MP ####[facility] [address]ji[address] [place], [place] [address]Dr. Airam Tripathi CO2 [Moles/Vol] 26.1 mmol/L Normal 21.0-32.0 [facility] Comment on above: Performed By: #### C MP ####[facility] Cgthtksonx2871 [place] [id number]. Airam Tripathi Creatinine [Mass/Vol] 1.07 mg/dL Critically high 0.55-1.02 [facility] Comment on above: Performed By: #### C MP ####[facility] Judyhyghfh4960 [place] [id number]. Airam eDuce EGFR-AF LATVIAN >60 Normal >=60 [facility] Comment on above: Performed By: #### C MP ####[facility] Narfmfbiro2092 [place] [id number]. Airam Deuce EGFR-NON AF LATVIAN 52 mL/min/1.73m2 Critically low >=60 [facility] Comment on above: Performed By: #### C MP ####[facility] Gxjimavuxp8535 [place] [address]Dr. Airam Tripathi Globulin (S) [Mass/Vol] 3.2 g/dL Normal [facility] Comment on above: Performed By: #### C MP ####[facility] Aumvgparqh[address] [place], [place] [address]Dr. Airam Tripathi Glucose [Mass/Vol] 83 mg/dL Normal 74-106 [facility] Comment on above: Performed By: #### C MP ####[facility] Qtpxzzpwie2[address] [place], [place] [address]Dr. Airam Tripathi Potassium [Moles/Vol] 5.5 mmol/L Critically high 3.5-5.1 [facility] Comment on above: Performed By: #### C MP ####[facility] Nkdatckbzv23[address] [place], [place] [address]Dr. Airam Tripathi Protein [Mass/Vol] 6.3 g/dL Critically low 6.4-8.2 [facility] Comment on above: Performed By: #### C MP ####[facility] Rwvdxnnehs69[address] [place], [place] [address]Dr. Airam Tripathi Sodium [Moles/Vol] 129 mmol/L Critically low 136-145 [facility] Comment on above: Performed By: #### C MP ####[facility] Tmxuuvwvcr00[address] [place], [place] [address]Dr. Airam Tripathi Urea nitrogen [Mass/Vol] 37.0 mg/dL Critically high 7.0-18.0 [facility] Comment on above: Performed By: #### C MP ####[facility] Ibcnrnkizi646[address] [place], [place] [address]Dr. Airam Tripathi Urea nitrogen/Creatinine [Mass ratio] 34.6 mg/mg Normal [facility] Comment on above: Performed By: #### C MP ####[facility] Eofydsxvqt684[address] [place], [place] [address]Dr. Airam Tripathi OSMOLALITYon 09-02-2022 Osmolality [Osmolality] 279 mosm/kg Normal 275-295 [facility] Comment on above: Performed By: #### O SMO ####[facility] Qcejqmzuzx[address] [place] [address]Dr. Airam Tripathi CBC AUTO DIFFon 08-31-2022 BASO # 0.0 103/ul Normal 0.0-0.1 [facility] Comment on above: Performed By: #### C BC ####[facility] Oppkksrynb[address] [place], [place] [address]Dr. Airam Deuce Basophils/100 WBC (Bld) 0.4 % Normal 0.2-2.0 [facility] Comment on above: Performed By: #### C BC ####[facility] Yvgobrtfku1399[address] [place], [place] [address]Dr. Airam Deuce EO # 0.2 103/ul Normal 0.0-0.7 [facility] Comment on above: Performed By: #### C BC ####[facility] Mxxhrqzcsa204[address] [place], [place] [address]Dr. Selenaneil Tripathi Eosinophils/100 WBC (Bld) 3.2 % Normal 0.9-7.0 [facility] Comment on above: Performed By: #### C BC ####[facility] Nlzppuqixi4[address] [place], [place] [address]Dr. Airam Tripathi Erythrocyte distribution width (RBC) [Ratio] 14.4 % Normal 11.0-15.0 [facility] Comment on above: Performed By: #### C BC ####[facility] Uoykixibgb9024[address] [place], [place] [address]Dr. Airam Tripathi Hematocrit (Bld) [Volume fraction] 27.8 % Critically low 36.0-48.0 [facility] Comment on above: Performed By: #### C BC ####[facility] Zppbyudiqd[address] [place], [place] [address]Dr. Selenaneil Tripathi Hemoglobin (Bld) [Mass/Vol] 8.7 g/dL Critically low 12.0-16.0 [facility] Comment on above: Performed By: #### C BC ####[facility] Sdrlakheve[address] [place], [place] [address]Dr. Airam Tripathi IG # 0.05 10e3/ul Critically high 0.00-0.03 [facility] Comment on above: Performed By: #### C BC ####[facility] Rtnnroatdy5637 [place] [id number]. Airam Tripathi IG % 0.7 % Critically high 0.0-0.5 [facility] Comment on above: Performed By: #### C BC ####[facility] Naltvwmvlo4305 [place] [id number]. Airam Tripathi LYMPH # 1.7 103/ul Normal 1.2-3.8 [facility] Comment on above: Performed By: #### C BC ####[facility] Wdtgyhitbg6488 [place] [phone]. Airam Tripathi Lymphocytes/100 WBC (Bld) 23.6 % Normal 20.5-60.0 [facility] Comment on above: Performed By: #### C BC ####[facility] Rrtsmhmtzn37[address] [place] [address]Dr. Airam Tripathi MANUAL DIFF REQ NO Normal [facility] Comment on above: Performed By: #### C BC ####[facility] Wfnjyehouh[address] [place], [place] [address]Dr. Airam Tripathi MCH (RBC) [Entitic mass] 27.8 pg Normal 26.7-34.0 [facility] Comment on above: Performed By: #### C BC ####[facility] Usogqirula0437 [place] [id number]. Airam Tripathi MCHC (RBC) [Mass/Vol] 31.3 g/dL Normal 29.9-35.2 [facility] Comment on above: Performed By: #### C BC ####[facility] Qacbe[address]acv[address] [place], [place] [id number]. Airam Tripathi MCV (RBC) [Entitic vol] 88.8 fL Normal 81.0-99.0 [facility] Comment on above: Performed By: #### C BC ####[facility] Nqbqmxcvfi2098 [place] [id number]. Airam Tripathi MONO # 0.5 103/ul Normal 0.3-0.8 [facility] Comment on above: Performed By: #### C BC ####[facility] Dntwjuqjtu5495 [place] [id number]. Airam Tripathi Monocytes/100 WBC (Bld) 6.9 % Normal 1.7-12.0 [facility] Comment on above: Performed By: #### C BC ####[facility] Ueijkmfjwh5[address] [place] [phone]. Airam Tripathi NEUT # 4.7 103/ul Normal 1.4-6.5 [facility] Comment on above: Performed By: #### C BC ####[facility] Vbjptvitjv2830 [place] [id number]. Airam Tripathi Neutrophils/100 WBC (Bld) 65.2 % Normal 43.0-75.0 [facility] Comment on above: Performed By: #### C BC ####[facility] Zeuttbwbdf2950 [place] [phone]. Airam Tripathi Platelet mean volume (Bld) [Entitic vol] 9.8 fL Normal 9.5-13.5 [facility] Comment on above: Performed By: #### C BC ####[facility] Wctocmkcwz8330 [place] [phone]. Airam Tripathi PLT 225 103/ul Normal 150-450 [facility] Comment on above: Performed By: #### C BC ####[facility] Mfkhmlvqro5718 [place] [phone]. Airam Tripathi RBC 3.13 106/ul Critically low 4.20-5.40 [facility] Comment on above: Performed By: #### C BC ####[facility] Uvlrfyqkyo4598 [place] [phone]. Airam Tripathi WBC 7.3 103/ul Normal 4.0-11.0 [facility] Comment on above: Performed By: #### C BC ####[facility] Kbqqsbatph8048 [place] [address]Dr. Airam Tripathi PROF 14(COMP METB)on 023 Albumin [Mass/Vol] 3.0 g/dL Critically low 3.4-5.0 Th [facility] Comment on above: Performed By: #### C MP ####[facility] Taygqgavdb5728 [place] [address]Dr. Airam Deuce Albumin/Globulin [Mass ratio] 1.1 {ratio} Normal [facility] Comment on above: Performed By: #### C MP ####[facility] Wbeyclcfov3898 [place] [id number]. Airam Tripathi ALP [Catalytic activity/Vol] 132 U/L Critically high 46-116 [facility] Comment on above: Performed By: #### C MP ####[facility] Odkfcjxsoe3788 [place] [address]Dr. Selenaneil Tripathi ALT [Catalytic activity/Vol] 20 U/L Normal 14-59 [facility] Comment on above: Performed By: #### C MP ####[facility] Murvswovyd[address] [place], [place] [address]Dr. Airam Tripathi Anion gap [Moles/Vol] 9.5 mmol/L Normal [facility] Comment on above: Performed By: #### C MP ####[facility] Ubsprbcmju15[address] [place], [place] [address]Dr. Selenaneil Tripathi AST [Catalytic activity/Vol] 25 U/L Normal 15-37 [facility] Comment on above: Performed By: #### C MP ####[facility] Djblugjvbr3824[address] [place], [place] [address]Dr. Airam Tripathi Bilirubin [Mass/Vol] 0.2 mg/dL Normal 0.2-1.0 [facility] Comment on above: Performed By: #### C MP ####[facility] Apibqbwbxx18[address] [place], [place] [address]Dr. Airam Tripathi Calcium [Mass/Vol] 7.9 mg/dL Critically low 8.5-10.1 Th [facility] Comment on above: Performed By: #### C MP ####[facility] Mgaunsanxe456[address] [place], [place] [address]Dr. Airam Tripathi Chloride [Moles/Vol] 97 mmol/L Critically low 98-107 [facility] Comment on above: Performed By: #### C MP ####[facility] Goxgtejloj89[address] [place] [phone]. Airam Tripathi CO2 [Moles/Vol] 27.3 mmol/L Normal 21.0-32.0 [facility] Comment on above: Performed By: #### C MP ####[facility] Smpzcrzcal4706 [place] [phone]. Airam Tripathi Creatinine [Mass/Vol] 1.58 mg/dL Critically high 0.55-1.02 [facility] Comment on above: Performed By: #### C MP ####[facility] Gnqjvchvuo5274 [place] [id number]. Airam Tripathi EGFR-AF LATVIAN 40 mL/min/1.73m2 Critically low >=60 [facility] Comment on above: Performed By: #### C MP ####[facility] Ffqkwqdeyh35[address] [place] [address]Dr. Airam Tripathi EGFR-NON AF LATVIAN 33 mL/min/1.73m2 Critically low >=60 [facility] Comment on above: Performed By: #### C MP ####[facility] Sbdoylzrcr9443 [place] [phone]. Airam Tripathi Globulin (S) [Mass/Vol] 2.8 g/dL Normal [facility] Comment on above: Performed By: #### C MP ####[facility] Ktxdtiaizn8325 [place] [address]Dr. Airam Tripathi Glucose [Mass/Vol] 111 mg/dL Critically high 74-106 [facility] Comment on above: Performed By: #### C MP ####[facility] Vbvygobinw7239 [place] [phone]. Airam Tripathi Potassium [Moles/Vol] 4.8 mmol/L Normal 3.5-5.1 [facility] Comment on above: Performed By: #### C MP ####[facility] Gnbqrjzlql8417 [place] [address]Dr. Airam Tripathi Protein [Mass/Vol] 5.8 g/dL Critically low 6.4-8.2 Th [facility] Comment on above: Performed By: #### C MP ####[facility] Cbxzzzzthn8845 [place] [phone]. Airam Tripathi Sodium [Moles/Vol] 129 mmol/L Critically low 136-145 Th [facility] Comment on above: Performed By: #### C MP ####[facility] Acwfhfhmpn[address] [place], [place] [address]Dr. Airam Tripathi Urea nitrogen [Mass/Vol] 44.0 mg/dL Critically high 7.0-18.0 [facility] Comment on above: Performed By: #### C MP ####[facility] Bwxlvbnmyx[address] [place], [place] [address]Dr. Airam Tripathi Urea nitrogen/Creatinine [Mass ratio] 27.8 mg/mg Normal [facility] Comment on above: Performed By: #### C MP ####[facility] Yyehbfekmh[address] [place], [place] [address]Dr. Airam Tripathi OSMOLALITYon 08-28-2022 Osmolality [Osmolality] 288 mosm/kg Normal 275-295 [facility] Comment on above: Performed By: #### O SMO ####[facility] Opzinyuowm[address] [place], [place] [address]Dr. Airam Tripathi CBC AUTO DIFFon 08-25-2022 BASO # 0.0 103/ul Normal 0.0-0.1 [facility] Comment on above: Performed By: #### C BC ####[facility] Ynssdkyknd3592 [place] [address]Dr. Airam Deuce Basophils/100 WBC (Bld) 0.5 % Normal 0.2-2.0 [facility] Comment on above: Performed By: #### C BC ####[facility] Qoycobprot1820 [place] [address]Dr. Airam Deuce EO # 0.4 103/ul Normal 0.0-0.7 [facility] Comment on above: Performed By: #### C BC ####[facility] Sfizuktqdu0212[address] [place], [place] [address]Dr. Airam Deuce Eosinophils/100 WBC (Bld) 4.8 % Normal 0.9-7.0 [facility] Comment on above: Performed By: #### C BC ####[facility] Fhqrrasfhs[address] [place], [place] [address]Dr. Airam Tripathi Erythrocyte distribution width (RBC) [Ratio] 14.2 % Normal 11.0-15.0 [facility] Comment on above: Performed By: #### C BC ####[facility] Bxsinvqoew5020[address] [place], [place] [address]Dr. Airam Tripathi Hematocrit (Bld) [Volume fraction] 31.1 % Critically low 36.0-48.0 [facility] Comment on above: Performed By: #### C BC ####[facility] Sbfptlaigd8[address] [place], [place] [address]Dr. Airam Tripathi Hemoglobin (Bld) [Mass/Vol] 9.7 g/dL Critically low 12.0-16.0 [facility] Comment on above: Performed By: #### C BC ####[facility] Xrdvyqbgwy6630[address] [place], [place] [address]Dr. Airam Tripathi IG # 0.05 10e3/ul Critically high 0.00-0.03 [facility] Comment on above: Performed By: #### C BC ####[facility] Ebrnvvljjt[address] [place], [place] [address]Dr. Airam Tripathi IG % 0.6 % Critically high 0.0-0.5 [facility] Comment on above: Performed By: #### C BC ####[facility] Cewjfdiobm6[address] [place], [place] [address]Dr. Airam Tripathi LYMPH # 1.7 103/ul Normal 1.2-3.8 [facility] Comment on above: Performed By: #### C BC ####[facility] Pfqwntvybb8664[address] [place], [place] [address]Dr. Airam Tripathi Lymphocytes/100 WBC (Bld) 19.6 % Critically low 20.5-60.0 [facility] Comment on above: Performed By: #### C BC ####[facility] Udxicjiccd8[address] [place], [place] [address]Dr. Airam Tripathi MANUAL DIFF REQ NO Normal [facility] Comment on above: Performed By: #### C BC ####[facility] Pkpmeettgm3470 [place] [phone]. Airam Deuce MCH (RBC) [Entitic mass] 28.2 pg Normal 26.7-34.0 [facility] Comment on above: Performed By: #### C BC ####[facility] Xxkmoncscl0619 [place] [phone]. Airam Deuce MCHC (RBC) [Mass/Vol] 31.2 g/dL Normal 29.9-35.2 [facility] Comment on above: Performed By: #### C BC ####[facility] Kjzreujljw3633 [place] [address]Dr. Selenaneil Tripathi MCV (RBC) [Entitic vol] 90.4 fL Normal 81.0-99.0 [facility] Comment on above: Performed By: #### C BC ####[facility] Lusmasnudz924[address] [place], [place] [address]Dr. Airam Tripathi MONO # 0.6 103/ul Normal 0.3-0.8 [facility] Comment on above: Performed By: #### C BC ####[facility] Qjqhtvvcxz6916[address] [place], [place] [address]Dr. Airam Tripathi Monocytes/100 WBC (Bld) 7.4 % Normal 1.7-12.0 [facility] Comment on above: Performed By: #### C BC ####[facility] Ftknvkbaha[address] [place], [place] [address]Dr. Airam Tripathi NEUT # 5.8 103/ul Normal 1.4-6.5 [facility] Comment on above: Performed By: #### C BC ####[facility] Rxkyyqunyz0655[address] [place], [place] [address]Dr. Airam Tripathi Neutrophils/100 WBC (Bld) 67.1 % Normal 43.0-75.0 [facility] Comment on above: Performed By: #### C BC ####[facility] Zpxmhmmpbn073[address] [place], [place] [address]Dr. Airam Tripathi Platelet mean volume (Bld) [Entitic vol] 9.9 fL Normal 9.5-13.5 [facility] Comment on above: Performed By: #### C BC ####[facility] Igyagstcpe3396 [place] [address]Dr. Airam Deuce PLT 320 103/ul Normal 150-450 [facility] Comment on above: Performed By: #### C BC ####[facility] Vdrvfuipqv6530 [place] [phone]. Selenaneil Tripathi RBC 3.44 106/ul Critically low 4.20-5.40 [facility] Comment on above: Performed By: #### C BC ####[facility] Hedvdecxvu7283 [place] [address]Dr. Selenaneil Deuce WBC 8.6 103/ul Normal 4.0-11.0 [facility] Comment on above: Performed By: #### C BC ####[facility] Spjjfsxbug2296 [place] [address]Dr. Airam Tripathi PROF 14(COMP METB)on 023 Albumin [Mass/Vol] 3.4 g/dL Normal 3.4-5.0 [facility] Comment on above: Performed By: #### C MP ####[facility] Ylbbeaxzsu278[address] [place], [place] [address]Dr. Airam Tripathi Albumin/Globulin [Mass ratio] 1.1 {ratio} Normal [facility] Comment on above: Performed By: #### C MP ####[facility] Hkwrfmiebx7461 [place] [address]Dr. Airam Tripathi ALP [Catalytic activity/Vol] 170 U/L Critically high 46-116 [facility] Comment on above: Performed By: #### C MP ####[facility] Pukfiiadvg5232 [place] [address]Dr. Airam Tripathi ALT [Catalytic activity/Vol] 22 U/L Normal 14-59 [facility] Comment on above: Performed By: #### C MP ####[facility] Toulteruke1561 [place] [address]Dr. Airam Tripathi Anion gap [Moles/Vol] 14.4 mmol/L Normal Th [facility] Comment on above: Performed By: #### C MP ####[facility] Oagrlnalou8273 [place] [phone]. Airam Tripathi AST [Catalytic activity/Vol] 25 U/L Normal 15-37 [facility] Comment on above: Performed By: #### C MP ####[facility] Rvznfepkja3348 [place] [phone]. Airam Tripathi Bilirubin [Mass/Vol] 0.3 mg/dL Normal 0.2-1.0 [facility] Comment on above: Performed By: #### C MP ####[facility] Wukvinnpvz[address] [place], [place] [address]Dr. Airam Tripathi Calcium [Mass/Vol] 8.2 mg/dL Critically low 8.5-10.1 Th e [facility] Comment on above: Performed By: #### C MP ####[facility] Ldybhhekdf084[address] [place], [place] [address]Dr. Airam Tripathi Chloride [Moles/Vol] 98 mmol/L Normal 98-107 [facility] Comment on above: Performed By: #### C MP ####[facility] Ykhkojusco[address] [place], [place] [address]Dr. Airam Tripathi CO2 [Moles/Vol] 27.8 mmol/L Normal 21.0-32.0 [facility] Comment on above: Performed By: #### C MP ####[facility] Bhvnvuuliz16[address] [place], [place] [address]Dr. Airam Tripathi Creatinine [Mass/Vol] 1.82 mg/dL Critically high 0.55-1.02 [facility] Comment on above: Performed By: #### C MP ####[facility] Ezjoiotjxd48[address] [place], [place] [address]Dr. Airam Tripathi EGFR-AF LATVIAN 34 mL/min/1.73m2 Critically low >=60 [facility] Comment on above: Performed By: #### C MP ####[facility] Fiqyepsido[address] [place], [place] [address]Dr. Airam Tripathi EGFR-NON AF LATVIAN 28 mL/min/1.73m2 Critically low >=60 [facility] Comment on above: Performed By: #### C MP ####[facility] Kqsccrgvnx4619 [place] [address]Dr. Airam Tripathi Globulin (S) [Mass/Vol] 3.2 g/dL Normal [facility] Comment on above: Performed By: #### C MP ####[facility] Xjoggaeltj1895 [place] [address]Dr. Airam Tripathi Glucose [Mass/Vol] 78 mg/dL Normal 74-106 [facility] Comment on above: Performed By: #### C MP ####[facility] Gpsaqpskzr297[address] [place], [place] [address]Dr. Airam Tripathi Potassium [Moles/Vol] 5.2 mmol/L Critically high 3.5-5.1 [facility] Comment on above: Performed By: #### C MP ####[facility] Evgesricva911[address] [place], [place] [address]Dr. Airam Tripathi Protein [Mass/Vol] 6.6 g/dL Normal 6.4-8.2 [facility] Comment on above: Performed By: #### C MP ####[facility] Srmneeuvqa7[address] [place], [place] [address]Dr. Airam Tripathi Sodium [Moles/Vol] 135 mmol/L Critically low 136-145 Th [facility] Comment on above: Performed By: #### C MP ####[facility] Zmiwewlcfy1275[address] [place], [place] [address]Dr. Airam Tripathi Urea nitrogen [Mass/Vol] 51.0 mg/dL Critically high 7.0-18.0 [facility] Comment on above: Performed By: #### C MP ####[facility] Fdwkdbktfx32[address] [place], [place] [address]Dr. Airam Tripathi Urea nitrogen/Creatinine [Mass ratio] 28.0 mg/mg Normal [facility] Comment on above: Performed By: #### C MP ####[facility] Ylkjrrdnqu[address] [place], [place] [address]Dr. Airam Tripathi OSMOLALITYon 08-18-2022 Osmolality [Osmolality] 280 mosm/kg Normal 275-295 [facility] Comment on above: Performed By: #### O SMO ####[facility] Koqhdntyvx0296 [place] [id number]. Airam Deuce CBC AUTO DIFFon 08-16-2022 BASO # 0.0 103/ul Normal 0.0-0.1 [facility] Comment on above: Performed By: #### C BC ####[facility] Pvfhfzqiub1920 [place] [address]Dr. Airam Tripathi Basophils/100 WBC (Bld) 0.2 % Normal 0.2-2.0 [facility] Comment on above: Performed By: #### C BC ####[facility] Xzhefenuva[address] [place], [place] [address]Dr. Airam Tripathi EO # 0.2 103/ul Normal 0.0-0.7 [facility] Comment on above: Performed By: #### C BC ####[facility] Uoitxatxuy97[address] [place], [place] [address]Dr. Airam Tripathi Eosinophils/100 WBC (Bld) 2.4 % Normal 0.9-7.0 [facility] Comment on above: Performed By: #### C BC ####[facility] Ejsgaycnqj36[address] [place], [place] [address]Dr. Selenaneil Tripathi Erythrocyte distribution width (RBC) [Ratio] 14.2 % Normal 11.0-15.0 [facility] Comment on above: Performed By: #### C BC ####[facility] Pbdbuzfezx[address] [place], [place] [address]Dr. Airam Tripathi Hematocrit (Bld) [Volume fraction] 30.1 % Critically low 36.0-48.0 [facility] Comment on above: Performed By: #### C BC ####[facility] Hnzpexkrhq[address] [place], [place] [address]Dr. Airam Tripathi Hemoglobin (Bld) [Mass/Vol] 9.2 g/dL Critically low 12.0-16.0 [facility] Comment on above: Performed By: #### C BC ####[facility] F[address]vhuvsdjy[address] [place], [place] [address]Dr. Airam Tripathi IG # 0.04 10e3/ul Critically high 0.00-0.03 [facility] Comment on above: Performed By: #### C BC ####[facility] Nqoghpxrnk1518 [place] [address]DrKianna Airam Tripathi IG % 0.4 % Normal 0.0-0.5 [facility] Comment on above: Performed By: #### C BC ####[facility] Kekkqkocld2840 [place] [address]DrKianna Airam Deuce LYMPH # 0.9 103/ul Critically low 1.2-3.8 [facility] Comment on above: Performed By: #### C BC ####[facility] Ukuxuwneuq9042 [place] [address]DrKianna Airam Deuce Lymphocytes/100 WBC (Bld) 9.3 % Critically low 20.5-60.0 [facility] Comment on above: Performed By: #### C BC ####[facility] [address]zlzymwb[address] [place], [place] [address]DrKianna Selenaneil Tripathi MANUAL DIFF REQ NO Normal [facility] Comment on above: Performed By: #### C BC ####[facility] Kwlsgvvzop1413 [place] [address]DrKianna Airam Deuce MCH (RBC) [Entitic mass] 27.7 pg Normal 26.7-34.0 [facility] Comment on above: Performed By: #### C BC ####[facility] Ckyetbmupt[address] [place], [place] [address]DrKianna Airam Deuce MCHC (RBC) [Mass/Vol] 30.6 g/dL Normal 29.9-35.2 [facility] Comment on above: Performed By: #### C BC ####[facility] [address]wevtlwbj[address] [place], [place] [id number] Airam Deuce MCV (RBC) [Entitic vol] 90.7 fL Normal 81.0-99.0 [facility] Comment on above: Performed By: #### C BC ####[facility] Lmsqhlbgsj7983 [place] [address]DrKianna Selenaneil Tripathi MONO # 0.5 103/ul Normal 0.3-0.8 [facility] Comment on above: Performed By: #### C BC ####[facility] Lievkgnjkp7567 [place] [id number]. Airam Tripathi Monocytes/100 WBC (Bld) 5.3 % Normal 1.7-12.0 [facility] Comment on above: Performed By: #### C BC ####[facility] Dsowfztcxm3482 [place] [id number]. Airam Tripathi NEUT # 7.7 103/ul Critically high 1.4-6.5 [facility] Comment on above: Performed By: #### C BC ####[facility] Whdzclcnzx6475 [place] [address]Dr. Airam Tripathi Neutrophils/100 WBC (Bld) 82.4 % Critically high 43.0-75.0 [facility] Comment on above: Performed By: #### C BC ####[facility] Edizvbrvib5156 [place] [address]Dr. Airam Tripathi Platelet mean volume (Bld) [Entitic vol] 9.8 fL Normal 9.5-13.5 [facility] Comment on above: Performed By: #### C BC ####[facility] [address]df[address]th[address] [place] [address]Dr. Airam Tripathi PLT 285 103/ul Normal 150-450 [facility] Comment on above: Performed By: #### C BC ####[facility] Oocpjlbngr[address] [place] [address]Dr. Airam Tripathi RBC 3.32 106/ul Critically low 4.20-5.40 [facility] Comment on above: Performed By: #### C BC ####[facility] Hsvfcitdyr[address] [place] [id number]. Airam Tripathi WBC 9.4 103/ul Normal 4.0-11.0 [facility] Comment on above: Performed By: #### C BC ####[facility] Jedhplvkvm[address] [place] [id number]. Airam Tripathi MRI WRIST RT WO CONon 2022 MRI WRIST RT WO CON Normal [facility] PROF 14(COMP METB)on 023 Albumin [Mass/Vol] 3.1 g/dL Critically low 3.4-5.0 Th [facility] Comment on above: Performed By: #### C MP ####[facility] Gpzfrpvnbi[address] [place], [place] [address]Dr. Airam Tripathi Albumin/Globulin [Mass ratio] 0.9 {ratio} Normal [facility] Comment on above: Performed By: #### C MP ####[facility] Kxjpqsuefx8[address] [place], [place] [address]Dr. Airam Tripathi ALP [Catalytic activity/Vol] 162 U/L Critically high 46-116 [facility] Comment on above: Performed By: #### C MP ####[facility] Waicblvgoi99[address] [place], [place] [address]Dr. Airam Tripathi ALT [Catalytic activity/Vol] 19 U/L Normal 14-59 [facility] Comment on above: Performed By: #### C MP ####[facility] Jwyrtgsnaf678[address] [place], [place] [address]Dr. Airam Tripathi Anion gap [Moles/Vol] 13.0 mmol/L Normal [facility] Comment on above: Performed By: #### C MP ####[facility] Ocuajzxxdb8489[address] [place], [place] [address]Dr. Airam Tripathi AST [Catalytic activity/Vol] 21 U/L Normal 15-37 [facility] Comment on above: Performed By: #### C MP ####[facility] Zhlrtidlby25[address] [place], [place] [address]Dr. Airam Tripathi Bilirubin [Mass/Vol] 0.3 mg/dL Normal 0.2-1.0 [facility] Comment on above: Performed By: #### C MP ####[facility] Fgbtgbtobq9634[address] [place], [place] [address]Dr. Airam Tripathi Calcium [Mass/Vol] 8.4 mg/dL Critically low 8.5-10.1 Th [facility] Comment on above: Performed By: #### C MP ####[facility] Cxunntnmnc029[address] [place], [place] [address]Dr. Airam Tripathi Chloride [Moles/Vol] 103 mmol/L Normal 98-107 [facility] Comment on above: Performed By: #### C MP ####[facility] Vwphdecdij[address] [place] [address]Dr. Airam Tripathi CO2 [Moles/Vol] 23.3 mmol/L Normal 21.0-32.0 [facility] Comment on above: Performed By: #### C MP ####[facility] Eyblfxpcil19[address] [place] [address]Dr. Airam Deuce Creatinine [Mass/Vol] 1.02 mg/dL Normal 0.55-1.02 [facility] Comment on above: Performed By: #### C MP ####[facility] Cuqcjlkvxz5475[address] [place], [place] [address]Dr. Airam Deuce EGFR-AF LATVIAN >60 Normal >=60 [facility] Comment on above: Performed By: #### C MP ####[facility] Gyhqecqklc[address] [place], [place] [address]Dr. Airam Deuce EGFR-NON AF LATVIAN 55 mL/min/1.73m2 Critically low >=60 [facility] Comment on above: Performed By: #### C MP ####[facility] Uibizdminy2399[address] [place], [place] [address]Dr. Airam Deuce Globulin (S) [Mass/Vol] 3.4 g/dL Normal [facility] Comment on above: Performed By: #### C MP ####[facility] Hplnrsbxjc3798[address] [place], [place] [address]Dr. Airam Deuce Glucose [Mass/Vol] 88 mg/dL Normal 74-106 [facility] Comment on above: Performed By: #### C MP ####[facility] Bccvwoyibm063[address] [place], [place] [address]Dr. Airam Deuce Potassium [Moles/Vol] 4.3 mmol/L Normal 3.5-5.1 [facility] Comment on above: Performed By: #### C MP ####[facility] Klvtmyfhho1348[address] [place], [place] [address]Dr. Selenaneil Tripathi Protein [Mass/Vol] 6.5 g/dL Normal 6.4-8.2 [facility] Comment on above: Performed By: #### C MP ####[facility] Dlosjavfpn[address] [place] [address]Dr. Airam Tripathi Sodium [Moles/Vol] 135 mmol/L Critically low 136-145 Th [facility] Comment on above: Performed By: #### C MP ####[facility] Nrbgpykpme64[address] [place] [address]Dr. Airam Tripathi Urea nitrogen [Mass/Vol] 27.0 mg/dL Critically high 7.0-18.0 [facility] Comment on above: Performed By: #### C MP ####[facility] Xityxpfbih8[address] [place], [place] [address]Dr. Airam Tripathi Urea nitrogen/Creatinine [Mass ratio] 26.5 mg/mg Normal [facility] Comment on above: Performed By: #### C MP ####[facility] Dyioigdxxy4260[address] [place], [place] [address]Dr. Airam Tripathi CT HEAD WO CONon 08-06-2022 CT HEAD WO CON Normal [facility] CT LSPINE WO CONon 3 CT LSPINE WO CON Normal [facility] XR HAND RT MIN 3Von 08-06-19 23 XR HAND RT MIN 3V Normal [facility] XR KNEE LT 4V or >on 023 XR KNEE LT 4V or > Normal [facility] XR WRIST RT MIN 3 Von 2022 XR WRIST RT MIN 3 V Normal [facility] OSMOLALITYon 08-05-2022 Osmolality [Osmolality] 282 mosm/kg Normal 275-295 [facility] Comment on above: Performed By: #### O SMO ####[facility] Fztqoriprw8739[address] [place], [place] [address]Dr. Airam Tripathi CBC AUTO DIFFon 08-03-2022 BASO # 0.0 103/ul Normal 0.0-0.1 [facility] Comment on above: Performed By: #### C BC ####[facility] Ipvkkvgiad[address] [place], [place] [address]Dr. Airam Tripathi Basophils/100 WBC (Bld) 0.5 % Normal 0.2-2.0 [facility] Comment on above: Performed By: #### C BC ####[facility] Dzyznmgjrq9510[address] [place], [place] [address]DrKianna Tripathi EO # 0.5 103/ul Normal 0.0-0.7 [facility] Comment on above: Performed By: #### C BC ####[facility] Gnvviobbjt9305[address] [place], [place] [address]Dr. Airam Tripathi Eosinophils/100 WBC (Bld) 5.2 % Normal 0.9-7.0 [facility] Comment on above: Performed By: #### C BC ####[facility] Mfujzjjguy8444[address] [place], [place] [address]Dr. Airam Tripathi Erythrocyte distribution width (RBC) [Ratio] 14.3 % Normal 11.0-15.0 [facility] Comment on above: Performed By: #### C BC ####[facility] Cdcgjzihmy150[address] [place], [place] [address]Dr. Airam Tripathi Hematocrit (Bld) [Volume fraction] 31.4 % Critically low 36.0-48.0 [facility] Comment on above: Performed By: #### C BC ####[facility] Qqplyprqgx5684[address] [place], [place] [address]Dr. Airam Tripathi Hemoglobin (Bld) [Mass/Vol] 9.5 g/dL Critically low 12.0-16.0 [facility] Comment on above: Performed By: #### C BC ####[facility] Pgljwtifyf[address] [place], [place] [address]Dr. Airam Tripathi IG # 0.05 10e3/ul Critically high 0.00-0.03 [facility] Comment on above: Performed By: #### C BC ####[facility] Muxqmgnuch5034[address] [place], [place] [address]DrKianna Tripathi IG % 0.6 % Critically high 0.0-0.5 [facility] Comment on above: Performed By: #### C BC ####[facility] Zizmmdixve6635[address] [place], [place] [address]DrKianna Tripathi LYMPH # 1.5 103/ul Normal 1.2-3.8 [facility] Comment on above: Performed By: #### C BC ####[facility] Aaqemfhdiv[address] [place] [address]DrKianna Tripathi Lymphocytes/100 WBC (Bld) 17.6 % Critically low 20.5-60.0 [facility] Comment on above: Performed By: #### C BC ####[facility] Uubesvtqoj78[address] [place], [place] [address]DrKianna Tripathi MANUAL DIFF REQ NO Normal [facility] Comment on above: Performed By: #### C BC ####[facility] Scdevhfqlp06[address] [place] [address]DrKianna Tripathi MCH (RBC) [Entitic mass] 29.0 pg Normal 26.7-34.0 [facility] Comment on above: Performed By: #### C BC ####[facility] Ktilqoyqbl8089[address] [place], [place] [address]DrKianna Tripathi MCHC (RBC) [Mass/Vol] 30.3 g/dL Normal 29.9-35.2 [facility] Comment on above: Performed By: #### C BC ####[facility] Tddgqitwde7[address] [place], [place] [address]DrKianna Tripathi MCV (RBC) [Entitic vol] 95.7 fL Normal 81.0-99.0 [facility] Comment on above: Performed By: #### C BC ####[facility] Acdggszqqy5327[address] [place], [place] [address]DrKianna Tripathi MONO # 0.7 103/ul Normal 0.3-0.8 [facility] Comment on above: Performed By: #### C BC ####[facility] Rucexlktjf8125[address] [place], [place] [address]DrKianna Tripathi Monocytes/100 WBC (Bld) 8.5 % Normal 1.7-12.0 [facility] Comment on above: Performed By: #### C BC ####[facility] Lxoeptajst09[address] [place], [place] [address]DrKianna Tripathi NEUT # 5.8 103/ul Normal 1.4-6.5 [facility] Comment on above: Performed By: #### C BC ####[facility] Pwlsabadyj[address] [place] [id number] Tripathi Neutrophils/100 WBC (Bld) 67.6 % Normal 43.0-75.0 [facility] Comment on above: Performed By: #### C BC ####[facility] Qplqmqpiez4831 [place] [address]DrKianna Tripathi Platelet mean volume (Bld) [Entitic vol] 9.5 fL Normal 9.5-13.5 [facility] Comment on above: Performed By: #### C BC ####[facility] Zqfjmnmhok[address] [place], [place] [address]DrKianna Tripathi PLT 292 103/ul Normal 150-450 [facility] Comment on above: Performed By: #### C BC ####[facility] Xzwphelqvj9635[address] [place], [place] [address]DrKianna Tripathi RBC 3.28 106/ul Critically low 4.20-5.40 [facility] Comment on above: Performed By: #### C BC ####[facility] Kkjvxxhsku5120[address] [place], [place] [address]DrKianna Tripathi WBC 8.6 103/ul Normal 4.0-11.0 [facility] Comment on above: Performed By: #### C BC ####[facility] Nfvwmirndn69[address] [place], [place] [address]DrKianna Tripathi PROF 14(COMP METB)on 023 Albumin [Mass/Vol] 3.0 g/dL Critically low 3.4-5.0 Th [facility] Comment on above: Performed By: #### C MP ####[facility] Qdesyjbcph1880[address] [place], [place] [address]DrKianna Tripathi Albumin/Globulin [Mass ratio] 0.9 {ratio} Normal [facility] Comment on above: Performed By: #### C MP ####[facility] Hdehgrhscp[address] [place], [place] [address]DrKianna Tripathi ALP [Catalytic activity/Vol] 184 U/L Critically high 46-116 [facility] Comment on above: Performed By: #### C MP ####[facility] Mcrykvitig[address] [place] [address]Dr. Airam Tripathi ALT [Catalytic activity/Vol] 18 U/L Normal 14-59 [facility] Comment on above: Performed By: #### C MP ####[facility] Radocbywkx7[address] [place] [address]Dr. Airam Tripathi Anion gap [Moles/Vol] 11.2 mmol/L Normal Th e [facility] Comment on above: Performed By: #### C MP ####[facility] Uoykkedxge2732[address] [place], [place] [address]Dr. Airam Tripathi AST [Catalytic activity/Vol] 19 U/L Normal 15-37 [facility] Comment on above: Performed By: #### C MP ####[facility] Xtxsytzugc6[address] [place], [place] [address]Dr. Airam Deuce Bilirubin [Mass/Vol] 0.3 mg/dL Normal 0.2-1.0 [facility] Comment on above: Performed By: #### C MP ####[facility] Mqdbbryjei0412[address] [place], [place] [address]Dr. Airam Deuce Calcium [Mass/Vol] 8.8 mg/dL Normal 8.5-10.1 [facility] Comment on above: Performed By: #### C MP ####[facility] Toclqlxtwc4139[address] [place], [place] [address]Dr. Airam Deuce Chloride [Moles/Vol] 101 mmol/L Normal 98-107 [facility] Comment on above: Performed By: #### C MP ####[facility] Joakxmqjsh6730[address] [place], [place] [address]Dr. Airam Deuce CO2 [Moles/Vol] 25.4 mmol/L Normal 21.0-32.0 [facility] Comment on above: Performed By: #### C MP ####[facility] Abwshtkybx146[address] [place], [place] [address]Dr. Airam Deuce Creatinine [Mass/Vol] 1.05 mg/dL Critically high 0.55-1.02 [facility] Comment on above: Performed By: #### C MP ####[facility] Gqurcdqvpc[address] [place] [address]Dr. Airam Deuce EGFR-AF LATVIAN >60 Normal >=60 [facility] Comment on above: Performed By: #### C MP ####[facility] Lpdxeoknvw3[address] [place] [id number]. Airam Tripathi EGFR-NON AF LATVIAN 53 mL/min/1.73m2 Critically low >=60 [facility] Comment on above: Performed By: #### C MP ####[facility] Smmftdkqzr3969 [place] [address]Dr. Airam Tripathi Globulin (S) [Mass/Vol] 3.4 g/dL Normal [facility] Comment on above: Performed By: #### C MP ####[facility] Cksayzglnn6598[address] [place], [place] [address]Dr. Airam Tripathi Glucose [Mass/Vol] 78 mg/dL Normal 74-106 [facility] Comment on above: Performed By: #### C MP ####[facility] Xgejkurgvd1465[address] [place], [place] [address]Dr. Airam Tripathi Potassium [Moles/Vol] 4.6 mmol/L Normal 3.5-5.1 [facility] Comment on above: Performed By: #### C MP ####[facility] Bxvitpibnr047[address] [place], [place] [address]Dr. Airam Tripathi Protein [Mass/Vol] 6.4 g/dL Normal 6.4-8.2 [facility] Comment on above: Performed By: #### C MP ####[facility] Fveiasjiuk32[address] [place] [address]Dr. Airam Tripathi Sodium [Moles/Vol] 133 mmol/L Critically low 136-145 [facility] Comment on above: Performed By: #### C MP ####[facility] Yuxcvvtncd9501 [place] [address]Dr. Airam Tripathi Urea nitrogen [Mass/Vol] 26.0 mg/dL Critically high 7.0-18.0 [facility] Comment on above: Performed By: #### C MP ####[facility] Qzvvxjlxpd630[address] [place], [place] [address]Dr. Airam Tripathi Urea nitrogen/Creatinine [Mass ratio] 24.8 mg/mg Normal [facility] Comment on above: Performed By: #### C MP ####[facility] Mpdcyukefu0114[address] [place], [place] [address]Dr. Airam Tripathi OSMOLALITYon 07-29-2022 Osmolality [Osmolality] 287 mosm/kg Normal 275-295 [facility] Comment on above: Performed By: #### O SMO ####[facility] Ztjczcjgif836[address] [place], [place] [address]Dr. Airam Tripathi CBC AUTO DIFFon 07-27-2022 BASO # 0.0 103/ul Normal 0.0-0.1 [facility] Comment on above: Performed By: #### C BC ####[facility] Xawjicfvom765[address] [place], [place] [address]DrKianna Tripathi Basophils/100 WBC (Bld) 0.4 % Normal 0.2-2.0 [facility] Comment on above: Performed By: #### C BC ####[facility] Jzixckhkur5750[address] [place], [place] [address]DrKianna Tripathi EO # 0.2 103/ul Normal 0.0-0.7 [facility] Comment on above: Performed By: #### C BC ####[facility] Lbijnwgypg6748[address] [place], [place] [address]Dr. Airam Tripathi Eosinophils/100 WBC (Bld) 2.6 % Normal 0.9-7.0 [facility] Comment on above: Performed By: #### C BC ####[facility] Mitoejprdd6197[address] [place], [place] [address]Dr. Airam Tripathi Erythrocyte distribution width (RBC) [Ratio] 14.2 % Normal 11.0-15.0 [facility] Comment on above: Performed By: #### C BC ####[facility] Sllwlkyfvi60[address] [place], [place] [address]Dr. Airam Tripathi Hematocrit (Bld) [Volume fraction] 31.3 % Critically low 36.0-48.0 [facility] Comment on above: Performed By: #### C BC ####[facility] Yoxzkmnztm8[address] [place] [address]DrKianna Tripathi Hemoglobin (Bld) [Mass/Vol] 9.3 g/dL Critically low 12.0-16.0 [facility] Comment on above: Performed By: #### C BC ####[facility] Bdweqqgmwt[address] [place], [place] [address]DrKainna Tripathi IG # 0.05 10e3/ul Critically high 0.00-0.03 [facility] Comment on above: Performed By: #### C BC ####[facility] Yoccsorgyz9523[address] [place], [place] [address]DrKianna Tripathi IG % 0.7 % Critically high 0.0-0.5 [facility] Comment on above: Performed By: #### C BC ####[facility] Vwuvpsggus238[address] [place], [place] [address]DrKianna Tripathi LYMPH # 1.0 103/ul Critically low 1.2-3.8 [facility] Comment on above: Performed By: #### C BC ####[facility] Tyhvdlcucl060[address] [place], [place] [address]DrKianna Tripathi Lymphocytes/100 WBC (Bld) 13.4 % Critically low 20.5-60.0 [facility] Comment on above: Performed By: #### C BC ####[facility] Ihifqizdun[address] [place], [place] [address]DrKianna Tripathi MANUAL DIFF REQ NO Normal [facility] Comment on above: Performed By: #### C BC ####[facility] Nrvmezikth0512[address] [place], [place] [address]DrKianna Tripathi MCH (RBC) [Entitic mass] 28.8 pg Normal 26.7-34.0 [facility] Comment on above: Performed By: #### C BC ####[facility] Avjkuzolll7630[address] [place], [place] [address]DrKianna Tripathi MCHC (RBC) [Mass/Vol] 29.7 g/dL Critically low 29.9-35.2 [facility] Comment on above: Performed By: #### C BC ####[facility] Urnhjysqhp64[address] [place] [address]DrKianna Tripathi MCV (RBC) [Entitic vol] 96.9 fL Normal 81.0-99.0 [facility] Comment on above: Performed By: #### C BC ####[facility] Ertbbeyoxo425[address] [place], [place] [address]DrKianna Tripathi MONO # 0.5 103/ul Normal 0.3-0.8 [facility] Comment on above: Performed By: #### C BC ####[facility] Wgugtgdvwq052[address] [place], [place] [address]DrKianna Tripathi Monocytes/100 WBC (Bld) 6.3 % Normal 1.7-12.0 [facility] Comment on above: Performed By: #### C BC ####[facility] Yhodpwsmvj577[address] [place], [place] [address]DrKianna Tripathi NEUT # 5.8 103/ul Normal 1.4-6.5 [facility] Comment on above: Performed By: #### C BC ####[facility] Gsokgqxdmn3760[address] [place], [place] [address]DrKianna Tripathi Neutrophils/100 WBC (Bld) 76.6 % Critically high 43.0-75.0 [facility] Comment on above: Performed By: #### C BC ####[facility] Wmywbozepl[address]17[address] [place], [place] [address]DrKianna Tripathi Platelet mean volume (Bld) [Entitic vol] 10.3 fL Normal 9.5-13.5 [facility] Comment on above: Performed By: #### C BC ####[facility] Pakuzoouwe[address] [place], [place] [address]DrKianna Tripathi PLT 265 103/ul Normal 150-450 [facility] Comment on above: Performed By: #### C BC ####[facility] Anmkckcoae4610[address] [place], [place] [address]DrKianna Tripathi RBC 3.23 106/ul Critically low 4.20-5.40 [facility] Comment on above: Performed By: #### C BC ####[facility] Gczmopjvjm9539[address] [place], [place] [address]Dr. Airam Tripathi WBC 7.6 103/ul Normal 4.0-11.0 [facility] Comment on above: Performed By: #### C BC ####[facility] Bhvlchlefi0797[address] [place], [place] [address]Dr. Airam Tripathi PROF 14(COMP METB)on 023 Albumin [Mass/Vol] 2.9 g/dL Critically low 3.4-5.0 [facility] Comment on above: Performed By: #### C MP ####[facility] Iqzrfddpds435[address] [place], [place] [address]Dr. Airam Tripathi Albumin/Globulin [Mass ratio] 0.8 {ratio} Normal [facility] Comment on above: Performed By: #### C MP ####[facility] Tbljxwgxgt1885[address] [place], [place] [address]Dr. Airam Tripathi ALP [Catalytic activity/Vol] 175 U/L Critically high 46-116 [facility] Comment on above: Performed By: #### C MP ####[facility] Xdikumeaky6354[address] [place], [place] [address]Dr. Airam Tripathi ALT [Catalytic activity/Vol] 24 U/L Normal 14-59 [facility] Comment on above: Performed By: #### C MP ####[facility] Joijqxrice8130[address] [place], [place] [address]Dr. Airam Tripathi Anion gap [Moles/Vol] 14.3 mmol/L Normal [facility] Comment on above: Performed By: #### C MP ####[facility] Lrutafpwfn[address] [place], [place] [address]Dr. Airam Tripathi AST [Catalytic activity/Vol] 25 U/L Normal 15-37 [facility] Comment on above: Performed By: #### C MP ####[facility] Ulguegoxpg604[address] [place], [place] [address]Dr. Airam Tripathi Bilirubin [Mass/Vol] 0.2 mg/dL Normal 0.2-1.0 [facility] Comment on above: Performed By: #### C MP ####[facility] Kqcneisbof[address] [place] [address]Dr. Airam Tripathi Calcium [Mass/Vol] 8.6 mg/dL Normal 8.5-10.1 [facility] Comment on above: Performed By: #### C MP ####[facility] Lnouznecrf9114[address] [place], [place] [address]Dr. Airam Tripathi Chloride [Moles/Vol] 102 mmol/L Normal 98-107 [facility] Comment on above: Performed By: #### C MP ####[facility] Qgnlmjczxf197[address] [place], [place] [address]Dr. Airam Tripathi CO2 [Moles/Vol] 23.7 mmol/L Normal 21.0-32.0 [facility] Comment on above: Performed By: #### C MP ####[facility] Rbztvgmbho25[address] [place], [place] [address]Dr. Airam Tripathi Creatinine [Mass/Vol] 1.29 mg/dL Critically high 0.55-1.02 [facility] Comment on above: Performed By: #### C MP ####[facility] Tylhczpbsb583[address] [place], [place] [address]Dr. Airam Tripathi EGFR-AF LATVIAN 51 mL/min/1.73m2 Critically low >=60 [facility] Comment on above: Performed By: #### C MP ####[facility] Cpwsrsjxug360[address] [place], [place] [address]Dr. Airam Tripathi EGFR-NON AF LATVIAN 42 mL/min/1.73m2 Critically low >=60 [facility] Comment on above: Performed By: #### C MP ####[facility] Rqoqwbpnkr[address] [place], [place] [address]Dr. Airam Tripathi Globulin (S) [Mass/Vol] 3.6 g/dL Normal [facility] Comment on above: Performed By: #### C MP ####[facility] Sdstodjkow67[address] [place], [place] [address]Dr. Airam Tripathi Glucose [Mass/Vol] 84 mg/dL Normal 74-106 [facility] Comment on above: Performed By: #### C MP ####[facility] Fomgcwijvk[address] [place] [address]Dr. Airam Tripathi Potassium [Moles/Vol] 5.0 mmol/L Normal 3.5-5.1 [facility] Comment on above: Performed By: #### C MP ####[facility] Ktdjhfxxjl[address] [place], [place] [address]Dr. Airam Tripathi Protein [Mass/Vol] 6.5 g/dL Normal 6.4-8.2 [facility] Comment on above: Performed By: #### C MP ####[facility] [address]vlnteyp[address] [place], [place] [address]Dr. Airam Tripathi Sodium [Moles/Vol] 135 mmol/L Critically low 136-145 [facility] Comment on above: Performed By: #### C MP ####[facility] [address]iaznssqw[address] [place], [place] [address]Dr. Airam Tripathi Urea nitrogen [Mass/Vol] 28.0 mg/dL Critically high 7.0-18.0 [facility] Comment on above: Performed By: #### C MP ####[facility] [address]wzqoapbb[address] [place], [place] [address]Dr. Airam Tripathi Urea nitrogen/Creatinine [Mass ratio] 21.7 mg/mg Normal [facility] Comment on above: Performed By: #### C MP ####[facility] Prooimzebw[address] [place], [place] [address]Dr. Airam Tripathi XR LSPINE MIN 4 VIEWSon 020 XR LSPINE MIN 4 VIEWS Normal [facility] OSMOLALITYon 07-24-2022 Osmolality [Osmolality] 279 mosm/kg Normal 275-295 [facility] Comment on above: Performed By: #### O SMO ####[facility] Uvtahajarj[address] [place], [place] [address]Dr. Airam Tripathi CBC AUTO DIFFon 07-21-2022 BASO # 0.0 103/ul Normal 0.0-0.1 [facility] Comment on above: Performed By: #### C BC ####[facility] [address] [place] [id number]. Airam Tripathi Basophils/100 WBC (Bld) 0.4 % Normal 0.2-2.0 [facility] Comment on above: Performed By: #### C BC ####[facility] Fgtmdehunf[address] [place], [place] [id number]. Airam Tripathi EO # 0.2 103/ul Normal 0.0-0.7 [facility] Comment on above: Performed By: #### C BC ####[facility] [address]qk[address] [place], [place] [address]Dr. Airam Tripathi Eosinophils/100 WBC (Bld) 2.3 % Normal 0.9-7.0 [facility] Comment on above: Performed By: #### C BC ####[facility] Yyqednioph[address] [place], [place] [address]Dr. Airam Tripathi Erythrocyte distribution width (RBC) [Ratio] 13.6 % Normal 11.0-15.0 [facility] Comment on above: Performed By: #### C BC ####[facility] Nticogjdok[address] [place], [place] [address]Dr. Airam Tripathi Hematocrit (Bld) [Volume fraction] 32.6 % Critically low 36.0-48.0 [facility] Comment on above: Performed By: #### C BC ####[facility] Ubdbglygwn[address] [place], [place] [address]Dr. Airam Tripathi Hemoglobin (Bld) [Mass/Vol] 9.5 g/dL Critically low 12.0-16.0 [facility] Comment on above: Performed By: #### C BC ####[facility] Rmzbdzbqex[address] [place], [place] [address]Dr. Airam Tripathi IG # 0.03 10e3/ul Normal 0.00-0.03 [facility] Comment on above: Performed By: #### C BC ####[facility] Otuncturqp[address] [place], [place] [address]Dr. Airam Tripathi IG % 0.4 % Normal 0.0-0.5 [facility] Comment on above: Performed By: #### C BC ####[facility] Vjqlzmwwaw[address] [place] [id number]. Airam Deuce LYMPH # 1.4 103/ul Normal 1.2-3.8 [facility] Comment on above: Performed By: #### C BC ####[facility] Fftyniztoi58[address] [place] [id number]. Airam Deuce Lymphocytes/100 WBC (Bld) 18.2 % Critically low 20.5-60.0 [facility] Comment on above: Performed By: #### C BC ####[facility] J[address]kplxkqs[address] [place] [address]Dr. Selenaneil Tripathi MANUAL DIFF REQ NO Normal [facility] Comment on above: Performed By: #### C BC ####[facility] Xcwhziypof[address] [place] [address]Dr. Selenaneil Tripathi MCH (RBC) [Entitic mass] 29.5 pg Normal 26.7-34.0 [facility] Comment on above: Performed By: #### C BC ####[facility] Zggtiotxff4174 [place] [address]Dr. Airam Deuce MCHC (RBC) [Mass/Vol] 29.1 g/dL Critically low 29.9-35.2 [facility] Comment on above: Performed By: #### C BC ####[facility] Fstshyncce9[address] [place] [id number]. Selenaneil Tripathi MCV (RBC) [Entitic vol] 101.2 fL Critically high 81.0-99.0 [facility] Comment on above: Performed By: #### C BC ####[facility] Tbkifultmy54[address] [place] [address]Dr. Airam Deuce MONO # 0.6 103/ul Normal 0.3-0.8 [facility] Comment on above: Performed By: #### C BC ####[facility] Wzpxghbsaf1364 [place] [phone]. Selenaneil Tripathi Monocytes/100 WBC (Bld) 7.9 % Normal 1.7-12.0 [facility] Comment on above: Performed By: #### C BC ####[facility] Byxyhajqok7614 [place] [id number]. Airam Tripathi NEUT # 5.5 103/ul Normal 1.4-6.5 [facility] Comment on above: Performed By: #### C BC ####[facility] Sxqnmyaarb5359 [place] [phone]. Airam Tripathi Neutrophils/100 WBC (Bld) 70.8 % Normal 43.0-75.0 [facility] Comment on above: Performed By: #### C BC ####[facility] Zlkjivulet0661 [place] [address]Dr. Airam Tripathi Platelet mean volume (Bld) [Entitic vol] 9.6 fL Normal 9.5-13.5 [facility] Comment on above: Performed By: #### C BC ####[facility] [address]fsvqgauek[address] [place], [place] [address]Dr. Airam Tripathi PLT 265 103/ul Normal 150-450 [facility] Comment on above: Performed By: #### C BC ####[facility] Lmwlzjkvqo30[address] [place] [address]Dr. Airam Tripathi RBC 3.22 106/ul Critically low 4.20-5.40 [facility] Comment on above: Performed By: #### C BC ####[facility] Mvysfsmikc43[address] [place] [address]Dr. Airam Tripathi WBC 7.8 103/ul Normal 4.0-11.0 [facility] Comment on above: Performed By: #### C BC ####[facility] Flvrzusqoo9[address] [place], [place] [address]DrKianna Tripathi PROF 14(COMP METB)on 023 Albumin [Mass/Vol] 2.9 g/dL Critically low 3.4-5.0 [facility] Comment on above: Performed By: #### C MP ####[facility] Krqyrilslw4568 [place] [address]Dr. Airam Tripathi Albumin/Globulin [Mass ratio] 0.9 {ratio} Normal [facility] Comment on above: Performed By: #### C MP ####[facility] Oqkzgtmbuq6516 [place] [address]Dr. Airam Tripathi ALP [Catalytic activity/Vol] 176 U/L Critically high 46-116 [facility] Comment on above: Performed By: #### C MP ####[facility] Frdxkriwja5623 [place] [address]Dr. Airam Tripathi ALT [Catalytic activity/Vol] 19 U/L Normal 14-59 [facility] Comment on above: Performed By: #### C MP ####[facility] Xfuwmdqivt6340 [place] [address]Dr. Airam Tripathi Anion gap [Moles/Vol] 12.6 mmol/L Normal [facility] Comment on above: Performed By: #### C MP ####[facility] Nourfglujy[address] [place], [place] [address]Dr. Airam Tripathi AST [Catalytic activity/Vol] 25 U/L Normal 15-37 [facility] Comment on above: Performed By: #### C MP ####[facility] Yorjpwbxiu87[address] [place], [place] [address]Dr. Airam Tripathi Bilirubin [Mass/Vol] 0.2 mg/dL Normal 0.2-1.0 [facility] Comment on above: Performed By: #### C MP ####[facility] Xpgovbjgai[address] [place], [place] [address]Dr. Airam Tripathi Calcium [Mass/Vol] 8.5 mg/dL Normal 8.5-10.1 [facility] Comment on above: Performed By: #### C MP ####[facility] Scengtffxa60[address] [place], [place] [address]Dr. Airam Tripathi Chloride [Moles/Vol] 101 mmol/L Normal 98-107 [facility] Comment on above: Performed By: #### C MP ####[facility] Tqantabrkg69[address] [place], [place] [address]Dr. Selenaneil Tripathi CO2 [Moles/Vol] 25.9 mmol/L Normal 21.0-32.0 [facility] Comment on above: Performed By: #### C MP ####[facility] Owmjerzliu9418 [place] [id number]. Airam Tripathi Creatinine [Mass/Vol] 1.11 mg/dL Critically high 0.55-1.02 [facility] Comment on above: Performed By: #### C MP ####[facility] Yrmfffnceh44[address] [place] [id number]. Airam Tripathi EGFR-AF LATVIAN >60 Normal >=60 [facility] Comment on above: Performed By: #### C MP ####[facility] Dbyaipzofn8354 [place] [id number]. Airam Tripathi EGFR-NON AF LATVIAN 50 mL/min/1.73m2 Critically low >=60 [facility] Comment on above: Performed By: #### C MP ####[facility] Rhidyynngj[address] [place], [place] [address]Dr. Airam Tripathi Globulin (S) [Mass/Vol] 3.2 g/dL Normal [facility] Comment on above: Performed By: #### C MP ####[facility] Hxnwclotmt756[address] [place], [place] [address]Dr. Airam Tripathi Glucose [Mass/Vol] 80 mg/dL Normal 74-106 [facility] Comment on above: Performed By: #### C MP ####[facility] Xvclwsyope144[address] [place], [place] [address]Dr. Airam Tripathi Potassium [Moles/Vol] 3.5 mmol/L Normal 3.5-5.1 [facility] Comment on above: Performed By: #### C MP ####[facility] Obunvkzhos[address] [place] [address]Dr. Airam Tripathi Protein [Mass/Vol] 6.1 g/dL Critically low 6.4-8.2 [facility] Comment on above: Performed By: #### C MP ####[facility] Asvnhrrxff0703 [place] [address]Dr. Airam Tripathi Sodium [Moles/Vol] 136 mmol/L Normal 136-145 [facility] Comment on above: Performed By: #### C MP ####[facility] Midhcjuqge66[address] [place], [place] [address]Dr. Airam Tripathi Urea nitrogen [Mass/Vol] 31.0 mg/dL Critically high 7.0-18.0 [facility] Comment on above: Performed By: #### C MP ####[facility] Upbnuvyukp4[address] [place], [place] [address]Dr. Airam Tripathi Urea nitrogen/Creatinine [Mass ratio] 27.9 mg/mg Normal [facility] Comment on above: Performed By: #### C MP ####[facility] Khsnscbaup[address] [place], [place] [address]Dr. Airam Tripathi OSMOLALITYon 07-19-2022 Osmolality [Osmolality] 285 mosm/kg Normal 275-295 [facility] Comment on above: Performed By: #### O SMO ####[facility] Dknozlcjei7[address] [place], [place] [address]Dr. Airam Tripathi CBC AUTO DIFFon 07-15-2022 BASO # 0.0 103/ul Normal 0.0-0.1 [facility] Comment on above: Performed By: #### C BC ####[facility] Flpczokefi8[address] [place], [place] [address]Dr. Airam Tripathi Basophils/100 WBC (Bld) 0.2 % Normal 0.2-2.0 [facility] Comment on above: Performed By: #### C BC ####[facility] Uiqocvutzm24[address] [place], [place] [address]Dr. Airam Tripathi EO # 0.1 103/ul Normal 0.0-0.7 [facility] Comment on above: Performed By: #### C BC ####[facility] Uqcsjedlsu[address] [place], [place] [address]Dr. Airam Tripathi Eosinophils/100 WBC (Bld) 1.4 % Normal 0.9-7.0 [facility] Comment on above: Performed By: #### C BC ####[facility] Qvavutximx22[address] [place], [place] [address]Dr. Airam Tripathi Erythrocyte distribution width (RBC) [Ratio] 13.0 % Normal 11.0-15.0 [facility] Comment on above: Performed By: #### C BC ####[facility] Qrqhvbjtkz9990 [place] [address]Dr. Airam Tripathi Hematocrit (Bld) [Volume fraction] 29.3 % Critically low 36.0-48.0 [facility] Comment on above: Performed By: #### C BC ####[facility] Blrrewxxso0663 [place] [address]Dr. Airam Tripathi Hemoglobin (Bld) [Mass/Vol] 10.3 g/dL Critically low 12.0-16.0 [facility] Comment on above: Performed By: #### C BC ####[facility] Wqxfronegn[address] [place], [place] [address]Dr. Airam Tripathi IG # 0.05 10e3/ul Critically high 0.00-0.03 [facility] Comment on above: Performed By: #### C BC ####[facility] Kadamqjbti[address] [place], [place] [address]Dr. Airam Tripathi IG % 0.6 % Critically high 0.0-0.5 [facility] Comment on above: Performed By: #### C BC ####[facility] H[address]hgdsxyw[address] [place], [place] [address]Dr. Airam Deuce LYMPH # 0.9 103/ul Critically low 1.2-3.8 [facility] Comment on above: Performed By: #### C BC ####[facility] Ttscavlyyp8753 [place] [address]Dr. Selenaneil Tripathi Lymphocytes/100 WBC (Bld) 10.6 % Critically low 20.5-60.0 [facility] Comment on above: Performed By: #### C BC ####[facility] Oflcqntssm[address] [place], [place] [address]Dr. Selenaneil Tripathi MANUAL DIFF REQ NO Normal [facility] Comment on above: Performed By: #### C BC ####[facility] Seckxnidiw4[address] [place], [place] [address]Dr. Selenaneil Tripathi MCH (RBC) [Entitic mass] 29.3 pg Normal 26.7-34.0 [facility] Comment on above: Performed By: #### C BC ####[facility] Rrxzniouxk4760 [place] [id number]. Airam Tripathi MCHC (RBC) [Mass/Vol] 35.2 g/dL Normal 29.9-35.2 [facility] Comment on above: Performed By: #### C BC ####[facility] Ivtoszannq2669 [place] [id number]. Airam Tripathi MCV (RBC) [Entitic vol] 83.5 fL Normal 81.0-99.0 [facility] Comment on above: Performed By: #### C BC ####[facility] Olhjxqdnti135[address] [place], [place] [address]Dr. Airam Tripathi MONO # 0.5 103/ul Normal 0.3-0.8 [facility] Comment on above: Performed By: #### C BC ####[facility] Pxomltqnmf[address] [place], [place] [address]Dr. Airam Tripathi Monocytes/100 WBC (Bld) 5.1 % Normal 1.7-12.0 [facility] Comment on above: Performed By: #### C BC ####[facility] Smtxktiyqz398[address] [place], [place] [address]Dr. Airam Tripathi NEUT # 7.3 103/ul Critically high 1.4-6.5 [facility] Comment on above: Performed By: #### C BC ####[facility] Qvkvdxwbuz8[address] [place], [place] [address]Dr. Airam Tripathi Neutrophils/100 WBC (Bld) 82.1 % Critically high 43.0-75.0 [facility] Comment on above: Performed By: #### C BC ####[facility] Wmdayxvefa4930[address] [place], [place] [address]Dr. Airam Tripathi Platelet mean volume (Bld) [Entitic vol] 8.9 fL Critically low 9.5-13.5 [facility] Comment on above: Performed By: #### C BC ####[facility] [address]asqtzethz[address] [place], [place] [address]Dr. Airam Tripathi PLT 290 103/ul Normal 150-450 [facility] Comment on above: Performed By: #### C BC ####[facility] Nsttmhcdeh9646 [place] [address]Dr. Selenaneil Deuce RBC 3.51 106/ul Critically low 4.20-5.40 [facility] Comment on above: Performed By: #### C BC ####[facility] Pnkbojjvxy4524 [place] [id number]. Airam Tripathi WBC 8.9 103/ul Normal 4.0-11.0 [facility] Comment on above: Performed By: #### C BC ####[facility] Wuiwhdlorv8615 [place] [address]Dr. Airam Tripathi PROF 14(COMP METB)on 023 Albumin [Mass/Vol] 3.2 g/dL Critically low 3.4-5.0 [facility] Comment on above: Performed By: #### C MP ####[facility] Nmidfwhnsi74[address] [place], [place] [address]Dr. Airam Tripathi Albumin/Globulin [Mass ratio] 0.9 {ratio} Normal [facility] Comment on above: Performed By: #### C MP ####[facility] Byxesaqovb[address] [place], [place] [address]Dr. Airam Tripathi ALP [Catalytic activity/Vol] 194 U/L Critically high 46-116 [facility] Comment on above: Performed By: #### C MP ####[facility] Loboniotno2829 [place] [address]Dr. Airam Tripathi ALT [Catalytic activity/Vol] 19 U/L Normal 14-59 [facility] Comment on above: Performed By: #### C MP ####[facility] Dziprsmsdy8545 [place] [address]Dr. Airam Tripathi Anion gap [Moles/Vol] 11.3 mmol/L Normal [facility] Comment on above: Performed By: #### C MP ####[facility] Vdrtihxrqo8470 [place] [address]Dr. Airam Tripathi AST [Catalytic activity/Vol] 24 U/L Normal 15-37 [facility] Comment on above: Performed By: #### C MP ####[facility] Qseocklzpa0718 [place] [id number]. Airam Tripathi Bilirubin [Mass/Vol] 0.2 mg/dL Normal 0.2-1.0 [facility] Comment on above: Performed By: #### C MP ####[facility] Fnsquuxdwi[address] [place], [place] [address]Dr. Airam Tripathi Calcium [Mass/Vol] 8.7 mg/dL Normal 8.5-10.1 [facility] Comment on above: Performed By: #### C MP ####[facility] Lmavaxxkza250[address] [place], [place] [address]Dr. Airam Tripathi Chloride [Moles/Vol] 101 mmol/L Normal 98-107 [facility] Comment on above: Performed By: #### C MP ####[facility] Bjycuwjaeq15[address] [place], [place] [address]Dr. Airam Tripathi CO2 [Moles/Vol] 27.2 mmol/L Normal 21.0-32.0 [facility] Comment on above: Performed By: #### C MP ####[facility] [address]myerwyjfp[address] [place], [place] [address]Dr. Airam Tripathi Creatinine [Mass/Vol] 1.17 mg/dL Critically high 0.55-1.02 [facility] Comment on above: Performed By: #### C MP ####[facility] Tmtumrbbjs[address] [place], [place] [address]Dr. Airam Tripathi EGFR-AF LATVIAN 57 mL/min/1.73m2 Critically low >=60 [facility] Comment on above: Performed By: #### C MP ####[facility] [address]ptacebxfa18[address] [place], [place] [address]Dr. Airam Tripathi EGFR-NON AF LATVIAN 47 mL/min/1.73m2 Critically low >=60 [facility] Comment on above: Performed By: #### C MP ####[facility] Umztmpgolb6[address] [place], [place] [address]Dr. Airam Tripathi Globulin (S) [Mass/Vol] 3.5 g/dL Normal [facility] Comment on above: Performed By: #### C MP ####[facility] Iaeheaemve7923 [place] [address]Dr. Airam Tripathi Glucose [Mass/Vol] 86 mg/dL Normal 74-106 [facility] Comment on above: Performed By: #### C MP ####[facility] Pfxckkloir4295 [place] [address]Dr. Airam Tripathi Potassium [Moles/Vol] 5.5 mmol/L Critically high 3.5-5.1 [facility] Comment on above: Performed By: #### C MP ####[facility] Tazqnaaqdg5022 [place] [address]Dr. Airam Tripathi Protein [Mass/Vol] 6.7 g/dL Normal 6.4-8.2 [facility] Comment on above: Performed By: #### C MP ####[facility] Tqdgyixweq[address] [place], [place] [address]Dr. Airam Tripathi Sodium [Moles/Vol] 134 mmol/L Critically low 136-145 [facility] Comment on above: Performed By: #### C MP ####[facility] Mwztdbnzar[address] [place], [place] [address]Dr. Airam Tripathi Urea nitrogen [Mass/Vol] 26.0 mg/dL Critically high 7.0-18.0 [facility] Comment on above: Performed By: #### C MP ####[facility] Kdocplhqqi74[address] [place], [place] [address]Dr. Airam Tripathi Urea nitrogen/Creatinine [Mass ratio] 22.2 mg/mg Normal [facility] Comment on above: Performed By: #### C MP ####[facility] Agbrbmahel[address] [place], [place] [address]Dr. Airam Tripathi OSMOLALITYon 07-08-2022 Osmolality [Osmolality] 273 mosm/kg Critically low 275-295 [facility] Comment on above: Performed By: #### O SMO ####[facility] A[address]wkgsgzr[address] [place], [place] [address]Dr. Airam Tripathi CBC AUTO DIFFon 07-07-2022 BASO # 0.0 103/ul Normal 0.0-0.1 [facility] Comment on above: Performed By: #### C BC ####[facility] Udworfmklb0031 [place] [id number]. Airam Tripathi Basophils/100 WBC (Bld) 0.4 % Normal 0.2-2.0 [facility] Comment on above: Performed By: #### C BC ####[facility] Awulryctrp[address] [place], [place] [address]Dr. Airam Tripathi EO # 0.1 103/ul Normal 0.0-0.7 [facility] Comment on above: Performed By: #### C BC ####[facility] Xfjtslfrwm[address] [place], [place] [address]Dr. Airam Tripathi Eosinophils/100 WBC (Bld) 1.6 % Normal 0.9-7.0 [facility] Comment on above: Performed By: #### C BC ####[facility] Vqzigfmzkt646[address] [place], [place] [address]Dr. Airam Tripathi Erythrocyte distribution width (RBC) [Ratio] 13.1 % Normal 11.0-15.0 [facility] Comment on above: Performed By: #### C BC ####[facility] Deuaphnzam[address] [place], [place] [address]Dr. Airam Tripathi Hematocrit (Bld) [Volume fraction] 33.7 % Critically low 36.0-48.0 [facility] Comment on above: Performed By: #### C BC ####[facility] [address]csspjcn[address] [place], [place] [address]Dr. Airam Tripathi Hemoglobin (Bld) [Mass/Vol] 9.9 g/dL Critically low 12.0-16.0 [facility] Comment on above: Performed By: #### C BC ####[facility] Mfwemynthi[address] [place], [place] [address]Dr. Airam Tripathi IG # 0.05 10e3/ul Critically high 0.00-0.03 [facility] Comment on above: Performed By: #### C BC ####[facility] Tunhpvgnnt[address] [place], [place] [address]Dr. Airam Tripathi IG % 0.6 % Critically high 0.0-0.5 [facility] Comment on above: Performed By: #### C BC ####[facility] Sorwujskfa34[address] [place] [address]Dr. Airam Tripathi LYMPH # 1.2 103/ul Normal 1.2-3.8 [facility] Comment on above: Performed By: #### C BC ####[facility] Lhepxedxgk0771 [place] [id number]. Airam Tripathi Lymphocytes/100 WBC (Bld) 15.5 % Critically low 20.5-60.0 [facility] Comment on above: Performed By: #### C BC ####[facility] Xclrydcghk8666 [place] [address]DrKianna Tripathi MANUAL DIFF REQ NO Normal [facility] Comment on above: Performed By: #### C BC ####[facility] Ybdzrrgtvd0258 [place] [address]DrKianna Tripathi MCH (RBC) [Entitic mass] 28.7 pg Normal 26.7-34.0 [facility] Comment on above: Performed By: #### C BC ####[facility] Sqcenjdqoj0587 [place] [address]Dr. Airam Tripathi MCHC (RBC) [Mass/Vol] 29.4 g/dL Critically low 29.9-35.2 [facility] Comment on above: Performed By: #### C BC ####[facility] [address]fdmcifua[address] [place], [place] [address]DrKianna Tripathi MCV (RBC) [Entitic vol] 97.7 fL Normal 81.0-99.0 [facility] Comment on above: Performed By: #### C BC ####[facility] Fbvaueyjmr2364 [place] [address]DrKianna Tripathi MONO # 0.6 103/ul Normal 0.3-0.8 [facility] Comment on above: Performed By: #### C BC ####[facility] Ohgtqgdpyq6826 [place] [id number] Tripathi Monocytes/100 WBC (Bld) 7.7 % Normal 1.7-12.0 [facility] Comment on above: Performed By: #### C BC ####[facility] Jbqapzoopg7279 [place] [id number]. Airam Tripathi NEUT # 5.9 103/ul Normal 1.4-6.5 [facility] Comment on above: Performed By: #### C BC ####[facility] Czrsdbxqpk7595 [place] [id number] Tripathi Neutrophils/100 WBC (Bld) 74.2 % Normal 43.0-75.0 [facility] Comment on above: Performed By: #### C BC ####[facility] Pcdhtemudt2296 [place] [id number]. Airam Tripathi Platelet mean volume (Bld) [Entitic vol] 9.4 fL Critically low 9.5-13.5 [facility] Comment on above: Performed By: #### C BC ####[facility] Luvojdmpux029[address] [place] [address]Dr. Airam Tripathi PLT 331 103/ul Normal 150-450 [facility] Comment on above: Performed By: #### C BC ####[facility] Gtxnvjvunf1254 [place] [address]Dr. Airam Tripathi RBC 3.45 106/ul Critically low 4.20-5.40 [facility] Comment on above: Performed By: #### C BC ####[facility] Xwbuoheucv6444 [place] [id number] Tripathi WBC 7.9 103/ul Normal 4.0-11.0 [facility] Comment on above: Performed By: #### C BC ####[facility] Hlhgcgfqfs5912 [place] [id number] Tripathi PROF 14(COMP METB)on 023 Albumin [Mass/Vol] 3.4 g/dL Normal 3.4-5.0 [facility] Comment on above: Performed By: #### C MP ####[facility] Qlfonufaxq3863 [place] [address]DrKianna Tripathi Albumin/Globulin [Mass ratio] 1.1 {ratio} Normal [facility] Comment on above: Performed By: #### C MP ####[facility] Kgibcawqmd4252 [place] [address]Dr. Airam Tripathi ALP [Catalytic activity/Vol] 197 U/L Critically high 46-116 [facility] Comment on above: Performed By: #### C MP ####[facility] Aibbykarrp[address] [place] [address]Dr. Airam Deuce ALT [Catalytic activity/Vol] 18 U/L Normal 14-59 [facility] Comment on above: Performed By: #### C MP ####[facility] Jgtujkqtmv28[address] [place] [address]Dr. Airam Tripathi Anion gap [Moles/Vol] 12.3 mmol/L Normal Th e [facility] Comment on above: Performed By: #### C MP ####[facility] [address]mdqatsebt[address] [place], [place] [address]Dr. Airam Tripathi AST [Catalytic activity/Vol] 26 U/L Normal 15-37 [facility] Comment on above: Performed By: #### C MP ####[facility] Hgmfrkhnkg[address] [place], [place] [address]Dr. Selenaneil Deuce Bilirubin [Mass/Vol] 0.3 mg/dL Normal 0.2-1.0 [facility] Comment on above: Performed By: #### C MP ####[facility] Wnovmojljm[address] [place], [place] [address]Dr. Airam Tripathi Calcium [Mass/Vol] 8.6 mg/dL Normal 8.5-10.1 [facility] Comment on above: Performed By: #### C MP ####[facility] Dsnueogmej13[address] [place] [address]Dr. Airam Tripathi Chloride [Moles/Vol] 96 mmol/L Critically low 98-107 [facility] Comment on above: Performed By: #### C MP ####[facility] Dqdojuafem2639 [place] [address]Dr. Airam Tripathi CO2 [Moles/Vol] 27.8 mmol/L Normal 21.0-32.0 [facility] Comment on above: Performed By: #### C MP ####[facility] Zudbqgztji5780 [place] [id number]. Airam Tripathi Creatinine [Mass/Vol] 1.55 mg/dL Critically high 0.55-1.02 [facility] Comment on above: Performed By: #### C MP ####[facility] Onhlhqhmaf76[address] [place] [id number]. Airam Tripathi EGFR-AF LATVIAN 41 mL/min/1.73m2 Critically low >=60 [facility] Comment on above: Performed By: #### C MP ####[facility] Amqbbhkhlf4[address] [place] [id number]. Airam Deuce EGFR-NON AF LATVIAN 34 mL/min/1.73m2 Critically low >=60 [facility] Comment on above: Performed By: #### C MP ####[facility] Wmpxnjobjt[address] [place], [place] [address]Dr. Airam Deuce Globulin (S) [Mass/Vol] 3.2 g/dL Normal [facility] Comment on above: Performed By: #### C MP ####[facility] Tsazgwbwon7[address] [place], [place] [address]Dr. Airam Deuce Glucose [Mass/Vol] 87 mg/dL Normal 74-106 [facility] Comment on above: Performed By: #### C MP ####[facility] Gtovndijyx2752 [place] [address]Dr. Airam Deuce Potassium [Moles/Vol] 5.1 mmol/L Normal 3.5-5.1 [facility] Comment on above: Performed By: #### C MP ####[facility] Vbqkqfifba0614 [place] [address]Dr. Airam Tripathi Protein [Mass/Vol] 6.6 g/dL Normal 6.4-8.2 [facility] Comment on above: Performed By: #### C MP ####[facility] Yvywkmeago2002 [place] [address]Dr. Selenaneil Tripathi Sodium [Moles/Vol] 131 mmol/L Critically low 136-145 [facility] Comment on above: Performed By: #### C MP ####[facility] Szicxtlohy7736 [place] [address]Dr. Airam Tripathi Urea nitrogen [Mass/Vol] 31.0 mg/dL Critically high 7.0-18.0 [facility] Comment on above: Performed By: #### C MP ####[facility] W[address]qrzpzwdv[address] [place], [place] [address]Dr. Airam Tripathi Urea nitrogen/Creatinine [Mass ratio] 20.0 mg/mg Normal The [facility] Comment on above: Performed By: #### C MP ####[facility] Qcltikvyqj807[address] [place], [place] [address]Dr. Airam Tripathi OSMOLALITYon 07-02-2022 Osmolality [Osmolality] 281 mosm/kg Normal 275-295 [facility] Comment on above: Performed By: #### O SMO ####[facility] Snfuzazgwq[address] [place], [place] [address]Dr. Airam Tripathi CBC AUTO DIFFon 06-29-2022 BASO # 0.0 103/ul Normal 0.0-0.1 [facility] Comment on above: Performed By: #### C BC ####[facility] Nxcxbalttm[address] [place], [place] [address]Dr. Airam Deuce Basophils/100 WBC (Bld) 0.3 % Normal 0.2-2.0 [facility] Comment on above: Performed By: #### C BC ####[facility] Kgijwyjmem739[address] [place], [place] [address]Dr. Airam Deuce EO # 0.2 103/ul Normal 0.0-0.7 [facility] Comment on above: Performed By: #### C BC ####[facility] Idwdsfgfrc080[address] [place], [place] [address]Dr. Airam Deuce Eosinophils/100 WBC (Bld) 2.3 % Normal 0.9-7.0 [facility] Comment on above: Performed By: #### C BC ####[facility] Zuwrkrrzzp[address] [place], [place] [address]Dr. Airam Tripathi Erythrocyte distribution width (RBC) [Ratio] 13.2 % Normal 11.0-15.0 [facility] Comment on above: Performed By: #### C BC ####[facility] Zuexvgqyzt2259 [place] [address]Dr. Airam Tripathi Hematocrit (Bld) [Volume fraction] 28.2 % Critically low 36.0-48.0 [facility] Comment on above: Performed By: #### C BC ####[facility] Gvqdsacvzm894[address] [place], [place] [address]Dr. Airam Tripathi Hemoglobin (Bld) [Mass/Vol] 9.1 g/dL Critically low 12.0-16.0 [facility] Comment on above: Performed By: #### C BC ####[facility] Dhhlxjyctx[address] [place], [place] [address]DrKianna Tripathi IG # 0.03 10e3/ul Normal 0.00-0.03 [facility] Comment on above: Performed By: #### C BC ####[facility] Fnwzhezrkp008[address] [place], [place] [address]Dr. Airam Tripathi IG % 0.4 % Normal 0.0-0.5 [facility] Comment on above: Performed By: #### C BC ####[facility] Fxxmojdozc6040[address] [place], [place] [address]DrKianna Tripathi LYMPH # 1.0 103/ul Critically low 1.2-3.8 [facility] Comment on above: Performed By: #### C BC ####[facility] Xfvmcjazdr69[address] [place], [place] [address]DrKianna Tripathi Lymphocytes/100 WBC (Bld) 12.8 % Critically low 20.5-60.0 [facility] Comment on above: Performed By: #### C BC ####[facility] Malwttnnqq4032[address] [place], [place] [address]DrKianna Tripathi MANUAL DIFF REQ NO Normal [facility] Comment on above: Performed By: #### C BC ####[facility] Cbcwldsdmf5130[address] [place], [place] [address]Dr. Airam Tripathi MCH (RBC) [Entitic mass] 29.9 pg Normal 26.7-34.0 [facility] Comment on above: Performed By: #### C BC ####[facility] Bengzzsbzd3154 [place] [address]Dr. Airam Tripathi MCHC (RBC) [Mass/Vol] 32.3 g/dL Normal 29.9-35.2 [facility] Comment on above: Performed By: #### C BC ####[facility] Pnpnltcxxc4707 [place] [address]Dr. Airam Tripathi MCV (RBC) [Entitic vol] 92.8 fL Normal 81.0-99.0 [facility] Comment on above: Performed By: #### C BC ####[facility] Cmlrvpbnhy15[address] [place], [place] [address]DrKianna Tripathi MONO # 0.5 103/ul Normal 0.3-0.8 [facility] Comment on above: Performed By: #### C BC ####[facility] Omyewanrka[address] [place], [place] [address]Dr. Airam Tripathi Monocytes/100 WBC (Bld) 6.0 % Normal 1.7-12.0 [facility] Comment on above: Performed By: #### C BC ####[facility] Wkluheqrft25[address] [place], [place] [address]Dr. Airam Tripathi NEUT # 6.0 103/ul Normal 1.4-6.5 [facility] Comment on above: Performed By: #### C BC ####[facility] Umazozenna69[address] [place], [place] [address]Dr. Airam Tripathi Neutrophils/100 WBC (Bld) 78.2 % Critically high 43.0-75.0 [facility] Comment on above: Performed By: #### C BC ####[facility] Egtgszicpi7[address] [place], [place] [address]DrKianna Tripathi Platelet mean volume (Bld) [Entitic vol] 9.0 fL Critically low 9.5-13.5 [facility] Comment on above: Performed By: #### C BC ####[facility] Ayalffnije[address] [place], [place] [address]Dr. Airam Tripathi PLT 332 103/ul Normal 150-450 [facility] Comment on above: Performed By: #### C BC ####[facility] Afgxwzqvcr6860 [place] [address]Dr. Airam Tripathi RBC 3.04 106/ul Critically low 4.20-5.40 [facility] Comment on above: Performed By: #### C BC ####[facility] Gluaqaciau7338 [place] [id number]. Airam Tripathi WBC 7.7 103/ul Normal 4.0-11.0 [facility] Comment on above: Performed By: #### C BC ####[facility] Uyasxdncoh9241 [place] [address]DrKianna Tripathi PROF 14(COMP METB)on 023 Albumin [Mass/Vol] 3.2 g/dL Critically low 3.4-5.0 Th [facility] Comment on above: Performed By: #### C MP ####[facility] Dvezghxzme8914 [place] [address]DrKianna Tripathi Albumin/Globulin [Mass ratio] 0.9 {ratio} Normal [facility] Comment on above: Performed By: #### C MP ####[facility] Qvugvwgptf6333 [place] [address]Dr. Airam Tripathi ALP [Catalytic activity/Vol] 135 U/L Critically high 46-116 [facility] Comment on above: Performed By: #### C MP ####[facility] Bimnegqpmh2195 [place] [address]Dr. Airam Tripathi ALT [Catalytic activity/Vol] 25 U/L Normal 14-59 [facility] Comment on above: Performed By: #### C MP ####[facility] Nlojwubzbt8759 [place] [id number] Tripathi Anion gap [Moles/Vol] 9.1 mmol/L Normal [facility] Comment on above: Performed By: #### C MP ####[facility] Imghtayjsu1554 [place] [phone]. Airam Tripathi AST [Catalytic activity/Vol] 34 U/L Normal 15-37 [facility] Comment on above: Performed By: #### C MP ####[facility] Potzrdqzaz45[address] [place] [id number]. Airam Tripathi Bilirubin [Mass/Vol] 0.3 mg/dL Normal 0.2-1.0 [facility] Comment on above: Performed By: #### C MP ####[facility] Obycaipwcm3313 [place] [id number]. Airam Tripathi Calcium [Mass/Vol] 8.6 mg/dL Normal 8.5-10.1 [facility] Comment on above: Performed By: #### C MP ####[facility] Ovigcmetjg6608 [place] [phone]. Airam Tripathi Chloride [Moles/Vol] 99 mmol/L Normal 98-107 [facility] Comment on above: Performed By: #### C MP ####[facility] Ngbyrfmbwu0962 [place] [phone]. Airam Tripathi CO2 [Moles/Vol] 29.1 mmol/L Normal 21.0-32.0 [facility] Comment on above: Performed By: #### C MP ####[facility] Oessgtdzsp8482 [place] [phone]. Airam Tripathi Creatinine [Mass/Vol] 1.40 mg/dL Critically high 0.55-1.02 [facility] Comment on above: Performed By: #### C MP ####[facility] Ltgusnrfwu6234 [place] [id number]. Aiarm Tripathi EGFR-AF LATVIAN 46 mL/min/1.73m2 Critically low >=60 [facility] Comment on above: Performed By: #### C MP ####[facility] Mnzkfjawor7257 [place] [id number]. Airam Tripathi EGFR-NON AF LATVIAN 38 mL/min/1.73m2 Critically low >=60 [facility] Comment on above: Performed By: #### C MP ####[facility] Qkfwudeiwi9477 [place] [phone]. Airam Tripathi Globulin (S) [Mass/Vol] 3.4 g/dL Normal [facility] Comment on above: Performed By: #### C MP ####[facility] Upfvjwjnmj3799 [place] [address]Dr. Airam Tripathi Glucose [Mass/Vol] 83 mg/dL Normal 74-106 [facility] Comment on above: Performed By: #### C MP ####[facility] Amhrsgxqdd3818 [place] [address]Dr. Airam Tripathi Potassium [Moles/Vol] 4.2 mmol/L Normal 3.5-5.1 [facility] Comment on above: Performed By: #### C MP ####[facility] Gubjskcbjr[address] [place], [place] [address]Dr. Airam Tripathi Protein [Mass/Vol] 6.6 g/dL Normal 6.4-8.2 [facility] Comment on above: Performed By: #### C MP ####[facility] Dnqpmrigrr9640[address] [place], [place] [address]Dr. Airam Tripathi Sodium [Moles/Vol] 133 mmol/L Critically low 136-145 [facility] Comment on above: Performed By: #### C MP ####[facility] Qsfxjpbeiy9687[address] [place], [place] [address]Dr. Airam Tripathi Urea nitrogen [Mass/Vol] 37.0 mg/dL Critically high 7.0-18.0 [facility] Comment on above: Performed By: #### C MP ####[facility] Dcxlphmonv7054[address] [place], [place] [address]Dr. Airam Tripathi Urea nitrogen/Creatinine [Mass ratio] 26.4 mg/mg Normal [facility] Comment on above: Performed By: #### C MP ####[facility] Ivohppmlrg8847[address] [place], [place] [address]Dr. Airam Deuce BNPon 06-18-2022 Natriuretic peptide B (Bld) [Mass/Vol] 5826.0 pg/mL Critically high <=900.0 [facility] Comment on above: Performed By: #### B FEATHER MAKER, CMP ####[facility] Mhcfshtchj1640[address] [place], [place] [address]Dr. Airam Deuce CBC AUTO DIFFon 06-18-2022 BASO # 0.0 103/ul Normal 0.0-0.1 [facility] Comment on above: Performed By: #### C BC ####[facility] Unhkkmjcaf1098[address] [place], [place] [address]Dr. Airam Tripathi Basophils/100 WBC (Bld) 0.4 % Normal 0.2-2.0 [facility] Comment on above: Performed By: #### C BC ####[facility] Zrxpdoxihl834[address] [place], [place] [address]Dr. Airam Tripathi EO # 0.1 103/ul Normal 0.0-0.7 [facility] Comment on above: Performed By: #### C BC ####[facility] Orsxobijgo239[address] [place], [place] [address]Dr. Airam Tripathi Eosinophils/100 WBC (Bld) 1.3 % Normal 0.9-7.0 [facility] Comment on above: Performed By: #### C BC ####[facility] Nhlnkyklic020[address] [place], [place] [address]Dr. Airam Tripathi Erythrocyte distribution width (RBC) [Ratio] 13.4 % Normal 11.0-15.0 [facility] Comment on above: Performed By: #### C BC ####[facility] Etvvdsahgl303[address] [place], [place] [address]Dr. Airam Tripathi Hematocrit (Bld) [Volume fraction] 27.3 % Critically low 36.0-48.0 [facility] Comment on above: Performed By: #### C BC ####[facility] Erhuxwbjjg5225[address] [place], [place] [address]Dr. Airam Tripathi Hemoglobin (Bld) [Mass/Vol] 8.6 g/dL Critically low 12.0-16.0 [facility] Comment on above: Performed By: #### C BC ####[facility] Jcenqlqvjf7[address] [place], [place] [address]Dr. Airam Tripathi IG # 0.08 10e3/ul Critically high 0.00-0.03 [facility] Comment on above: Performed By: #### C BC ####[facility] Lhpfklkfmj2519 [place] [id number]. Airam Tripathi IG % 0.8 % Critically high 0.0-0.5 [facility] Comment on above: Performed By: #### C BC ####[facility] Zcagadjszp6454 [place] [address]Dr. Airam Deuce LYMPH # 1.9 103/ul Normal 1.2-3.8 [facility] Comment on above: Performed By: #### C BC ####[facility] Weoeneawls0838 [place] [address]Dr. Airam Deuce Lymphocytes/100 WBC (Bld) 19.3 % Critically low 20.5-60.0 [facility] Comment on above: Performed By: #### C BC ####[facility] Jlnpanazgw2662 [place] [address]Dr. Selenaneil Tripathi MANUAL DIFF REQ NO Normal [facility] Comment on above: Performed By: #### C BC ####[facility] Pketclvfuy1498 [place] [address]Dr. Airam Deuce MCH (RBC) [Entitic mass] 29.6 pg Normal 26.7-34.0 [facility] Comment on above: Performed By: #### C BC ####[facility] Ccbifgxbus[address] [place], [place] [address]Dr. Airam Tripathi MCHC (RBC) [Mass/Vol] 31.5 g/dL Normal 29.9-35.2 [facility] Comment on above: Performed By: #### C BC ####[facility] Spfovztmor0312 [place] [address]Dr. Airam Deuce MCV (RBC) [Entitic vol] 93.8 fL Normal 81.0-99.0 [facility] Comment on above: Performed By: #### C BC ####[facility] Bsfhnkhweh[address] [place], [place] [address]Dr. Selenaneil Deuce MONO # 0.6 103/ul Normal 0.3-0.8 [facility] Comment on above: Performed By: #### C BC ####[facility] [address]snqaktch[address] [place], [place] [address]Dr. Airam Tripathi Monocytes/100 WBC (Bld) 6.5 % Normal 1.7-12.0 [facility] Comment on above: Performed By: #### C BC ####[facility] Rdbiouiskq2508 [place] [id number]. Airam Tripathi NEUT # 6.9 103/ul Critically high 1.4-6.5 [facility] Comment on above: Performed By: #### C BC ####[facility] Uyspsghvbf3983 [place] [address]Dr. Airam Tripathi Neutrophils/100 WBC (Bld) 71.7 % Normal 43.0-75.0 [facility] Comment on above: Performed By: #### C BC ####[facility] Yznaslfxap3209 [place] [address]Dr. Airam Tripathi Platelet mean volume (Bld) [Entitic vol] 8.5 fL Critically low 9.5-13.5 [facility] Comment on above: Performed By: #### C BC ####[facility] Wzrbwqqpac2943 [place] [address]Dr. Airam Tripathi PLT 295 103/ul Normal 150-450 [facility] Comment on above: Performed By: #### C BC ####[facility] Mqrisiiuij4847 [place] [address]Dr. Airam Tripathi RBC 2.91 106/ul Critically low 4.20-5.40 [facility] Comment on above: Performed By: #### C BC ####[facility] Siqofredgz2509 [place] [id number]. Airam Tripathi WBC 9.7 103/ul Normal 4.0-11.0 [facility] Comment on above: Performed By: #### C BC ####[facility] Caakmcnzdu9472 [place] [address]Dr. Airam Tripathi PROF 14(COMP METB)on 06-18-2 022 Albumin [Mass/Vol] 2.8 g/dL Critically low 3.4-5.0 [facility] Comment on above: Performed By: #### B FEATHER MAKER, CMP ####[facility] Zfuwknmvfl2706 [place] [id number]. Airam Tripathi Albumin/Globulin [Mass ratio] 0.9 {ratio} Normal [facility] Comment on above: Performed By: #### B FEATHER MAKER, CMP ####[facility] Vhuhjczxan7054 [place] [id number]. Airam Tripathi ALP [Catalytic activity/Vol] 125 U/L Critically high 46-116 [facility] Comment on above: Performed By: #### B FEATHER MAKER, CMP ####[facility] Pjbovympma3039 [place] [id number]. Airam Tripathi ALT [Catalytic activity/Vol] 16 U/L Normal 14-59 [facility] Comment on above: Performed By: #### B FEATHER MAKER, CMP ####[facility] Sepprmkryl9442 [place] [phone]. Airam Tripathi Anion gap [Moles/Vol] 11.4 mmol/L Normal [facility] Comment on above: Performed By: #### B FEATHER MAKER, CMP ####[facility] Ejyawiriuf7822 [place] [id number]. Airam Tripathi AST [Catalytic activity/Vol] 23 U/L Normal 15-37 [facility] Comment on above: Performed By: #### B FEATHER MAKER, CMP ####[facility] Yjyzabwhyp3183 [place] [id number]. Airam Deuce Bilirubin [Mass/Vol] 0.2 mg/dL Normal 0.2-1.0 [facility] Comment on above: Performed By: #### B FEATHER MAKER, CMP ####[facility] Risfqjbzgj0550 [place] [id number]. Airam Deuce Calcium [Mass/Vol] 8.1 mg/dL Critically low 8.5-10.1 [facility] Comment on above: Performed By: #### B FEATHER MAKER, CMP ####[facility] Rksodnapjx7814 [place] [id number]. Selenaneil Deuce Chloride [Moles/Vol] 96 mmol/L Critically low 98-107 [facility] Comment on above: Performed By: #### B FEATHER MAKER, CMP ####[facility] Wnisfksiis5714 [place] [address]Dr. Airam Tripathi CO2 [Moles/Vol] 26.6 mmol/L Normal 21.0-32.0 [facility] Comment on above: Performed By: #### B FEATHER MAKER, CMP ####[facility] Imxxmnngdf3025 [place] [address]Dr. Airam Tripathi Creatinine [Mass/Vol] 1.31 mg/dL Critically high 0.55-1.02 [facility] Comment on above: Performed By: #### B FEATHER MAKER, CMP ####[facility] Tqjwuzogah[address] [place], [place] [address]Dr. Airam Deuce EGFR-AF LATVIAN 50 mL/min/1.73m2 Critically low >=60 [facility] Comment on above: Performed By: #### B FEATHER MAKER, CMP ####[facility] [address]fryq[address] [place], [place] [address]Dr. Selenaneil Deuce EGFR-NON AF LATVIAN 41 mL/min/1.73m2 Critically low >=60 [facility] Comment on above: Performed By: #### B FEATHER MAKER, CMP ####[facility] Lhlyjgiphz64[address] [place], [place] [address]Dr. Airam Deuce Globulin (S) [Mass/Vol] 3.0 g/dL Normal [facility] Comment on above: Performed By: #### B FEATHER MAKER, CMP ####[facility] Zzfmcvvfwj[address] [place], [place] [address]Dr. Airam Deuce Glucose [Mass/Vol] 82 mg/dL Normal 74-106 [facility] Comment on above: Performed By: #### B FEATHER MAKER, CMP ####[facility] Dpsnzrahpn[address] [place], [place] [address]Dr. Airam Deuce Potassium [Moles/Vol] 4.0 mmol/L Normal 3.5-5.1 [facility] Comment on above: Performed By: #### B FEATHER MAKER, CMP ####[facility] Orxjmfqiya8590[address] [place], [place] [address]Dr. Airam Tripathi Protein [Mass/Vol] 5.8 g/dL Critically low 6.4-8.2 Th [facility] Comment on above: Performed By: #### B FEATHER MAKER, CMP ####[facility] Ydmueomnfs[address] [place], [place] [address]Dr. Airam Tripathi Sodium [Moles/Vol] 130 mmol/L Critically low 136-145 Th [facility] Comment on above: Performed By: #### B FEATHER MAKER, CMP ####[facility] Yxyiltkita6[address] [place], [place] [address]Dr. Airam Tripathi Urea nitrogen [Mass/Vol] 19.0 mg/dL Critically high 7.0-18.0 [facility] Comment on above: Performed By: #### B FEATHER MAKER, CMP ####[facility] Qfwioabzmb0[address] [place], [place] [address]Dr. Airam Tripathi Urea nitrogen/Creatinine [Mass ratio] 14.5 mg/mg Normal [facility] Comment on above: Performed By: #### B FEATHER MAKER, CMP ####[facility] Lkyafemtod[address] [place], [place] [address]Dr. Airam Deuce BNPon 06-17-2022 Natriuretic peptide B (Bld) [Mass/Vol] 2510.0 pg/mL Critically high <=900.0 [facility] Comment on above: Performed By: #### B FEATHER MAKER, CMP ####[facility] Jvetrmgafm[address] [place], [place] [address]Dr. Airam Tripathi CBC AUTO DIFFon 06-17-2022 BASO # 0.0 103/ul Normal 0.0-0.1 [facility] Comment on above: Performed By: #### C BC ####[facility] Wztkytshsk[address] [place], [place] [address]Dr. Airam Tripathi Basophils/100 WBC (Bld) 0.4 % Normal 0.2-2.0 [facility] Comment on above: Performed By: #### C BC ####[facility] Emwxebduzh3[address] [place], [place] [address]Dr. Airam Tripathi EO # 0.0 103/ul Normal 0.0-0.7 [facility] Comment on above: Performed By: #### C BC ####[facility] [address]ceoszpif[address] [place], [place] [address]Dr. Airam Tripathi Eosinophils/100 WBC (Bld) 0.3 % Critically low 0.9-7.0 [facility] Comment on above: Performed By: #### C BC ####[facility] Fpgeekqpwc5348 [place] [address]Dr. Airam Tripathi Erythrocyte distribution width (RBC) [Ratio] 13.6 % Normal 11.0-15.0 [facility] Comment on above: Performed By: #### C BC ####[facility] [address]pygndcs[address] [place], [place] [address]Dr. Airam Tripathi Hematocrit (Bld) [Volume fraction] 28.9 % Critically low 36.0-48.0 [facility] Comment on above: Performed By: #### C BC ####[facility] Knvxamuyof[address] [place], [place] [address]Dr. Airam Tripathi Hemoglobin (Bld) [Mass/Vol] 8.9 g/dL Critically low 12.0-16.0 [facility] Comment on above: Performed By: #### C BC ####[facility] Akdmyuqwef[address] [place], [place] [address]Dr. Airam Tripathi IG # 0.10 10e3/ul Critically high 0.00-0.03 [facility] Comment on above: Performed By: #### C BC ####[facility] Yfkgeeyie[address] [place], [place] [address]Dr. Airam Tripathi IG % 1.3 % Critically high 0.0-0.5 [facility] Comment on above: Performed By: #### C BC ####[facility] [address]klcecskg[address] [place], [place] [address]Dr. Airam Tripathi LYMPH # 0.7 103/ul Critically low 1.2-3.8 [facility] Comment on above: Performed By: #### C BC ####[facility] Jmzafrzstx[address] [place], [place] [address]Dr. Airam Tripathi Lymphocytes/100 WBC (Bld) 8.1 % Critically low 20.5-60.0 [facility] Comment on above: Performed By: #### C BC ####[facility] Hpinhccffb8[address] [place] [id number]. Airam Tripathi MANUAL DIFF REQ NO Normal [facility] Comment on above: Performed By: #### C BC ####[facility] Yqptvljaas3764 [place] [id number]. Airam Tripathi MCH (RBC) [Entitic mass] 29.4 pg Normal 26.7-34.0 [facility] Comment on above: Performed By: #### C BC ####[facility] Afkrgyxnzo1310 [place] [id number]. Airam Tripathi MCHC (RBC) [Mass/Vol] 30.8 g/dL Normal 29.9-35.2 [facility] Comment on above: Performed By: #### C BC ####[facility] Jzsoozfdnd44[address] [place] [address]Dr. Airam Tripathi MCV (RBC) [Entitic vol] 95.4 fL Normal 81.0-99.0 [facility] Comment on above: Performed By: #### C BC ####[facility] Aiuahwvszy7854 [place] [phone]. Airam Deuce MONO # 0.3 103/ul Normal 0.3-0.8 [facility] Comment on above: Performed By: #### C BC ####[facility] Alcurvigzp1353 [place] [phone]. Selenaneil Tripathi Monocytes/100 WBC (Bld) 3.1 % Normal 1.7-12.0 [facility] Comment on above: Performed By: #### C BC ####[facility] Uvddvyktgd5391 [place] [phone]. Airam Tripathi NEUT # 7.0 103/ul Critically high 1.4-6.5 [facility] Comment on above: Performed By: #### C BC ####[facility] Hmuhwkkxhn7578 [place] [id number]. Airam Tripathi Neutrophils/100 WBC (Bld) 86.8 % Critically high 43.0-75.0 [facility] Comment on above: Performed By: #### C BC ####[facility] Qljsymwtdg3709 [place] [phone]. Selenaneil Deuce Platelet mean volume (Bld) [Entitic vol] 8.3 fL Critically low 9.5-13.5 [facility] Comment on above: Performed By: #### C BC ####[facility] Zwjjjekwmx2187 [place] [id number]. Selenaneil Deuce PLT 279 103/ul Normal 150-450 [facility] Comment on above: Performed By: #### C BC ####[facility] Lphsvodpwv1271 [place] [address]Dr. Airam Tripathi RBC 3.03 106/ul Critically low 4.20-5.40 [facility] Comment on above: Performed By: #### C BC ####[facility] Jegagwqpqc6412 [place] [address]Dr. Airam Tripathi WBC 8.0 103/ul Normal 4.0-11.0 [facility] Comment on above: Performed By: #### C BC ####[facility] Uuvzcthown8[address] [place] [address]Dr. Airam Tripathi PROF 14(COMP METB)on 022 Albumin [Mass/Vol] 2.8 g/dL Critically low 3.4-5.0 [facility] Comment on above: Performed By: #### B FEATHER MAKER, CMP ####[facility] Mvawnviytd4855 [place] [address]Dr. Airam Tripathi Albumin/Globulin [Mass ratio] 0.9 {ratio} Normal [facility] Comment on above: Performed By: #### B FEATHER MAKER, CMP ####[facility] Vknksabjwe8448 [place] [address]Dr. Airam Tripathi ALP [Catalytic activity/Vol] 136 U/L Critically high 46-116 [facility] Comment on above: Performed By: #### B FEATHER MAKER, CMP ####[facility] Eyxnianyrr6517 [place] [address]Dr. Airam Tripathi ALT [Catalytic activity/Vol] 17 U/L Normal 14-59 [facility] Comment on above: Performed By: #### B FEATHER MAKER, CMP ####[facility] Qhzlybigvr06[address] [place], [place] [address]Dr. Airam Tripathi Anion gap [Moles/Vol] 12.9 mmol/L Normal Th [facility] Comment on above: Performed By: #### B FEATHER MAKER, CMP ####[facility] Sbepzabuzv[address] [place], [place] [address]Dr. Airam Tripathi AST [Catalytic activity/Vol] 24 U/L Normal 15-37 [facility] Comment on above: Performed By: #### B FEATHER MAKER, CMP ####[facility] Zlzldnxgxn[address] [place], [place] [address]Dr. Airam Tripathi Bilirubin [Mass/Vol] 0.2 mg/dL Normal 0.2-1.0 [facility] Comment on above: Performed By: #### B FEATHER MAKER, CMP ####[facility] Scsymooyxx8[address] [place], [place] [address]Dr. Airam Tripathi Calcium [Mass/Vol] 8.7 mg/dL Normal 8.5-10.1 [facility] Comment on above: Performed By: #### B FEATHER MAKER, CMP ####[facility] Ohzpgxszlb[address] [place], [place] [address]Dr. Airam Tripathi Chloride [Moles/Vol] 102 mmol/L Normal 98-107 [facility] Comment on above: Performed By: #### B FEATHER MAKER, CMP ####[facility] Zclqdtnsxc[address] [place], [place] [address]Dr. Selenaneil Tripathi CO2 [Moles/Vol] 23.8 mmol/L Normal 21.0-32.0 [facility] Comment on above: Performed By: #### B FEATHER MAKER, CMP ####[facility] Tfzzlycwei69[address] [place], [place] [address]Dr. Airam Tripathi Creatinine [Mass/Vol] 1.08 mg/dL Critically high 0.55-1.02 [facility] Comment on above: Performed By: #### B FEATHER MAKER, CMP ####[facility] Vicyoiaypp33[address] [place], [place] [address]Dr. Airam Tripathi EGFR-AF LATVIAN >60 Normal >=60 [facility] Comment on above: Performed By: #### B FEATHER MAKER, CMP ####[facility] Mlcsntvvwd8945 [place] [id number]. Airam Tripathi EGFR-NON AF LATVIAN 52 mL/min/1.73m2 Critically low >=60 [facility] Comment on above: Performed By: #### B FEATHER MAKER, CMP ####[facility] Qbexplocnt2649 [place] [phone]. Airam Tripathi Globulin (S) [Mass/Vol] 3.2 g/dL Normal [facility] Comment on above: Performed By: #### B FEATHER MAKER, CMP ####[facility] Hxxlpxgtzb4298 [place] [address]Dr. Airam Tripathi Glucose [Mass/Vol] 99 mg/dL Normal 74-106 [facility] Comment on above: Performed By: #### B FEATHER MAKER, CMP ####[facility] Mcopuytqvq6498 [place] [address]Dr. Airam Tripathi Potassium [Moles/Vol] 4.7 mmol/L Normal 3.5-5.1 [facility] Comment on above: Performed By: #### B FEATHER MAKER, CMP ####[facility] Lcpyuuhwss1978 [place] [phone]. Airam Tripathi Protein [Mass/Vol] 6.0 g/dL Critically low 6.4-8.2 Th [facility] Comment on above: Performed By: #### B FEATHER MAKER, CMP ####[facility] Lsdjslnujg7114 [place] [address]Dr. Airam Tripathi Sodium [Moles/Vol] 134 mmol/L Critically low 136-145 Th [facility] Comment on above: Performed By: #### B FEATHER MAKER, CMP ####[facility] Moidfjyefc0358 [place] [phone]. Airam Tripathi Urea nitrogen [Mass/Vol] 19.0 mg/dL Critically high 7.0-18.0 [facility] Comment on above: Performed By: #### B FEATHER MAKER, CMP ####[facility] Qcngoszqir4781 [place] [phone]. Airam Tripathi Urea nitrogen/Creatinine [Mass ratio] 17.6 mg/mg Normal [facility] Comment on above: Performed By: #### B FEATHER MAKER, CMP ####[facility] Akltjkfhht[address] [place], [place] [address]Dr. Airam Tripathi PROTIMEon 06-17-2022 INR Coag (PPP) [Relative time] 1.00 {INR} Normal [facility] Comment on above: Performed By: #### P T ####[facility] Njevpxkdzt[address] [place], [place] [address]Dr. Airam Tripathi INR GUIDELINES SEE BELOW Normal [facility] Comment on above: Result Comment: SIDRA RED INR: 2.0 - 3.0 CONDITIONS NOT LISTED BELOW 2.5 - 3.5 FOR PROSTHETIC HEART VALVE REPLACEMENT 2.5 - 3.5 RECURRENT THROMBOSIS Performed By: #### P T ####[facility] Fdovosjerd[address] [place], [place] [address]Dr. Airam Tripathi PT Coag (PPP) [Time] 10.8 s Normal 9.0-11.6 [facility] Comment on above: Performed By: #### P T ####[facility] Hkksafuhue[address] [place], [place] [address]Dr. Airam Tripathi PTTon 06-17-2022 aPTT Coag (Bld) [Time] 27.2 s Normal 22.3-36.2 Th [facility] Comment on above: Performed By: #### P TT ####[facility] Sxcvsfabal[address] [place], [place] [address]Dr. Airam Tripathi BNPon 06-16-2022 Natriuretic peptide B (Bld) [Mass/Vol] 2293.0 pg/mL Critically high <=900.0 [facility] Comment on above: Performed By: #### C MP, BNP ####[facility] Tlpsbotjcf[address] [place], [place] [address]Dr. Airam Tripathi CBC AUTO DIFFon 06-16-2022 BASO # 0.0 103/ul Normal 0.0-0.1 [facility] Comment on above: Performed By: #### C BC ####[facility] Uhltzqustd7[address] [place], [place] [address]DrKianna Tripathi Basophils/100 WBC (Bld) 0.4 % Normal 0.2-2.0 [facility] Comment on above: Performed By: #### C BC ####[facility] Ntffdjtsff[address] [place], [place] [address]Dr. Airam Tripathi EO # 0.2 103/ul Normal 0.0-0.7 [facility] Comment on above: Performed By: #### C BC ####[facility] Gejtpektny10[address] [place], [place] [address]Dr. Airam Tripathi Eosinophils/100 WBC (Bld) 3.0 % Normal 0.9-7.0 [facility] Comment on above: Performed By: #### C BC ####[facility] Fkrkrhkbwf64[address] [place], [place] [address]Dr. Airam Tripathi Erythrocyte distribution width (RBC) [Ratio] 13.3 % Normal 11.0-15.0 [facility] Comment on above: Performed By: #### C BC ####[facility] Eoqkyrqydc[address] [place], [place] [address]Dr. Airam Tripathi Hematocrit (Bld) [Volume fraction] 26.2 % Critically low 36.0-48.0 [facility] Comment on above: Performed By: #### C BC ####[facility] Lurxtkcarc8[address] [place], [place] [address]Dr. Airam Tripathi Hemoglobin (Bld) [Mass/Vol] 8.3 g/dL Critically low 12.0-16.0 [facility] Comment on above: Performed By: #### C BC ####[facility] Ufmemddarc4[address] [place], [place] [address]Dr. Selenaneil Deuce IG # 0.08 10e3/ul Critically high 0.00-0.03 [facility] Comment on above: Performed By: #### C BC ####[facility] Atoxeptqfp3[address] [place], [place] [address]DrKianna Airam Deuce IG % 1.1 % Critically high 0.0-0.5 [facility] Comment on above: Performed By: #### C BC ####[facility] Zlmaunjjoj[address] [place], [place] [address]Dr. Airam Tripathi LYMPH # 1.2 103/ul Normal 1.2-3.8 [facility] Comment on above: Performed By: #### C BC ####[facility] Teladkpyrp8074 [place] [address]Dr. Airam Tripathi Lymphocytes/100 WBC (Bld) 17.3 % Critically low 20.5-60.0 [facility] Comment on above: Performed By: #### C BC ####[facility] Ssrxzztdft7[address] [place], [place] [address]DrKianna Tripathi MANUAL DIFF REQ NO Normal [facility] Comment on above: Performed By: #### C BC ####[facility] Bczfshqedg238[address] [place], [place] [address]Dr. Airam Tripathi MCH (RBC) [Entitic mass] 30.3 pg Normal 26.7-34.0 [facility] Comment on above: Performed By: #### C BC ####[facility] Jxldoddnvw363[address] [place], [place] [address]Dr. Airam Tripathi MCHC (RBC) [Mass/Vol] 31.7 g/dL Normal 29.9-35.2 [facility] Comment on above: Performed By: #### C BC ####[facility] Sytguzgmbk[address] [place], [place] [address]DrKianna Tripathi MCV (RBC) [Entitic vol] 95.6 fL Normal 81.0-99.0 [facility] Comment on above: Performed By: #### C BC ####[facility] Usmowghqsi[address] [place], [place] [address]DrKianna Tripathi MONO # 0.5 103/ul Normal 0.3-0.8 [facility] Comment on above: Performed By: #### C BC ####[facility] Jumqhlhbfx[address] [place], [place] [address]DrKianna Tripathi Monocytes/100 WBC (Bld) 7.1 % Normal 1.7-12.0 [facility] Comment on above: Performed By: #### C BC ####[facility] Uijarfhggw[address] [place], [place] [address]Dr. Airam Tripathi NEUT # 5.0 103/ul Normal 1.4-6.5 [facility] Comment on above: Performed By: #### C BC ####[facility] Aimgbmbemg3431 [place] [address]Dr. Airam Tripathi Neutrophils/100 WBC (Bld) 71.1 % Normal 43.0-75.0 [facility] Comment on above: Performed By: #### C BC ####[facility] Olxgpsfsxb9131 [place] [address]Dr. Airam Tripathi Platelet mean volume (Bld) [Entitic vol] 8.2 fL Critically low 9.5-13.5 [facility] Comment on above: Performed By: #### C BC ####[facility] Ocrvkxqfyk7747 [place] [address]Dr. Airam Tripathi PLT 247 103/ul Normal 150-450 [facility] Comment on above: Performed By: #### C BC ####[facility] Rfxvmhglva3111 [place] [address]Dr. Airam Tripathi RBC 2.74 106/ul Critically low 4.20-5.40 [facility] Comment on above: Performed By: #### C BC ####[facility] Upenpgjshq[address] [place], [place] [address]DrKianna Airam Tripathi WBC 7.1 103/ul Normal 4.0-11.0 [facility] Comment on above: Performed By: #### C BC ####[facility] Aiulnefsta[address] [place], [place] [address]Dr. Airam Tripathi CTA CHEST WO W CONon 022 CTA CHEST WO W CON Normal [facility] PROF 14(COMP METB)on 022 Albumin [Mass/Vol] 2.6 g/dL Critically low 3.4-5.0 Th e [facility] Comment on above: Performed By: #### C MP, BNP ####[facility] Meamidmuhh1708 [place] [address]Dr. Airam Tripathi Albumin/Globulin [Mass ratio] 0.8 {ratio} Normal [facility] Comment on above: Performed By: #### C MP, BNP ####[facility] Dsgzxajczn7006 [place] [address]Dr. Airam Tripathi ALP [Catalytic activity/Vol] 130 U/L Critically high 46-116 [facility] Comment on above: Performed By: #### C MP, BNP ####[facility] Xamiqrptlx5654 [place] [address]Dr. Airam Tripathi ALT [Catalytic activity/Vol] 12 U/L Critically low 14-59 [facility] Comment on above: Performed By: #### C MP, BNP ####[facility] Lilskgnvvc[address] [place], [place] [address]Dr. Airam Tripathi Anion gap [Moles/Vol] 11.8 mmol/L Normal [facility] Comment on above: Performed By: #### C MP, BNP ####[facility] Anfkaqbmpg4[address] [place], [place] [address]Dr. Airam Deuce AST [Catalytic activity/Vol] 22 U/L Normal 15-37 [facility] Comment on above: Performed By: #### C MP, BNP ####[facility] Ydofvtwrqz[address] [place], [place] [address]Dr. Airam Deuce Bilirubin [Mass/Vol] 0.2 mg/dL Normal 0.2-1.0 [facility] Comment on above: Performed By: #### C MP, BNP ####[facility] Vlbnbtopji[address] [place], [place] [address]Dr. Airam Deuce Calcium [Mass/Vol] 8.0 mg/dL Critically low 8.5-10.1 [facility] Comment on above: Performed By: #### C MP, BNP ####[facility] Esbfmqluxn[address] [place], [place] [address]Dr. Airam Tripathi Chloride [Moles/Vol] 104 mmol/L Normal 98-107 [facility] Comment on above: Performed By: #### C MP, BNP ####[facility] Alqewussrl[address] [place], [place] [address]Dr. Airam Tripathi CO2 [Moles/Vol] 22.8 mmol/L Normal 21.0-32.0 [facility] Comment on above: Performed By: #### C MP, BNP ####[facility] Vyqpdlteuu6470 [place] [id number]. Airam Tripathi Creatinine [Mass/Vol] 1.07 mg/dL Critically high 0.55-1.02 [facility] Comment on above: Performed By: #### C MP, BNP ####[facility] Psobzylffa6615 [place] [id number]. Airam Deuce EGFR-AF LATVIAN >60 Normal >=60 [facility] Comment on above: Performed By: #### C MP, BNP ####[facility] Ficfmqcoxy7619 [place] [id number]. Airam Deuce EGFR-NON AF LATVIAN 52 mL/min/1.73m2 Critically low >=60 [facility] Comment on above: Performed By: #### C MP, BNP ####[facility] Ylkukdhctl6050 [place] [address]Dr. Airam Tripathi Globulin (S) [Mass/Vol] 3.1 g/dL Normal [facility] Comment on above: Performed By: #### C MP, BNP ####[facility] Moeyhymtiq9075 [place] [address]Dr. Airam Deuce Glucose [Mass/Vol] 85 mg/dL Normal 74-106 [facility] Comment on above: Performed By: #### C MP, BNP ####[facility] Wemvgwqdjh7218 [place] [address]Dr. Airam Deuce Potassium [Moles/Vol] 4.6 mmol/L Normal 3.5-5.1 [facility] Comment on above: Performed By: #### C MP, BNP ####[facility] Kbbmbumfqv3969 [place] [id number]. Selenaneil Tripathi Protein [Mass/Vol] 5.7 g/dL Critically low 6.4-8.2 Th [facility] Comment on above: Performed By: #### C MP, BNP ####[facility] Mytpcpnaow8475 [place] [address]Dr. Airam Tripathi Sodium [Moles/Vol] 134 mmol/L Critically low 136-145 Th e [facility] Comment on above: Performed By: #### C MP, BNP ####[facility] Obxoknepnu[address] [place], [place] [address]Dr. Airam Tripathi Urea nitrogen [Mass/Vol] 24.0 mg/dL Critically high 7.0-18.0 [facility] Comment on above: Performed By: #### C MP, BNP ####[facility] Guidiinbil300[address] [place], [place] [address]Dr. Airam Tripathi Urea nitrogen/Creatinine [Mass ratio] 22.4 mg/mg Normal [facility] Comment on above: Performed By: #### C MP, BNP ####[facility] Jjhkzyzzkh8[address] [place], [place] [address]Dr. Airam Tripathi BNPon 06-15-2022 Natriuretic peptide B (Bld) [Mass/Vol] 934.0 pg/mL Critically high <=900.0 [facility] Comment on above: Performed By: #### C MP, BNP ####[facility] Ecvkxbhwid[address] [place], [place] [address]Dr. Airam Tripathi CBC AUTO DIFFon 06-15-2022 BASO # 0.0 103/ul Normal 0.0-0.1 [facility] Comment on above: Performed By: #### C BC ####[facility] Mbxgaipnvk65[address] [place], [place] [address]Dr. Airam Deuce Basophils/100 WBC (Bld) 0.2 % Normal 0.2-2.0 [facility] Comment on above: Performed By: #### C BC ####[facility] Bwpzllssbu[address] [place], [place] [address]Dr. Airam Tripathi EO # 0.1 103/ul Normal 0.0-0.7 [facility] Comment on above: Performed By: #### C BC ####[facility] C[address]qmslrgdq[address] [place], [place] [address]Dr. Airam Deuce Eosinophils/100 WBC (Bld) 2.1 % Normal 0.9-7.0 [facility] Comment on above: Performed By: #### C BC ####[facility] Tdvqjhkauj6491 [place] [address]Dr. Airam Tripathi Erythrocyte distribution width (RBC) [Ratio] 12.9 % Normal 11.0-15.0 [facility] Comment on above: Performed By: #### C BC ####[facility] Axckkjmpnw[address] [place], [place] [address]Dr. Airam Tripathi Hematocrit (Bld) [Volume fraction] 24.9 % Critically low 36.0-48.0 [facility] Comment on above: Performed By: #### C BC ####[facility] Xuriwjschl[address] [place], [place] [address]Dr. Airam Tripathi Hemoglobin (Bld) [Mass/Vol] 7.9 g/dL Critically low 12.0-16.0 [facility] Comment on above: Performed By: #### C BC ####[facility] Xtrtvmsemg[address] [place], [place] [address]Dr. Airam Tripathi IG # 0.05 10e3/ul Critically high 0.00-0.03 [facility] Comment on above: Performed By: #### C BC ####[facility] D[address]okusbukj[address] [place], [place] [address]Dr. Airam Tripathi IG % 0.8 % Critically high 0.0-0.5 [facility] Comment on above: Performed By: #### C BC ####[facility] Z[address]lkkczss[address] [place], [place] [address]Dr. Airam Tripathi LYMPH # 0.9 103/ul Critically low 1.2-3.8 [facility] Comment on above: Performed By: #### C BC ####[facility] Lpgginpcsu[address] [place], [place] [address]Dr. Selenaneil Tripathi Lymphocytes/100 WBC (Bld) 13.7 % Critically low 20.5-60.0 [facility] Comment on above: Performed By: #### C BC ####[facility] F[address]jasyumm[address] [place], [place] [address]Dr. Selenaneil Tripathi MANUAL DIFF REQ NO Normal [facility] Comment on above: Performed By: #### C BC ####[facility] Mpnsopvbay3716 [place] [id number]. Airam Tripathi MCH (RBC) [Entitic mass] 30.2 pg Normal 26.7-34.0 [facility] Comment on above: Performed By: #### C BC ####[facility] Kookctidzj6136 [place] [address]Dr. Airam Tripathi MCHC (RBC) [Mass/Vol] 31.7 g/dL Normal 29.9-35.2 [facility] Comment on above: Performed By: #### C BC ####[facility] Z[address]rgtiz[address] [place], [place] [address]Dr. Airam Tripathi MCV (RBC) [Entitic vol] 95.0 fL Normal 81.0-99.0 [facility] Comment on above: Performed By: #### C BC ####[facility] [address]fbrgpckz[address] [place], [place] [address]Dr. Airam Tripathi MONO # 0.4 103/ul Normal 0.3-0.8 [facility] Comment on above: Performed By: #### C BC ####[facility] Pszbpgamaq[address] [place], [place] [address]Dr. Airam Tripathi Monocytes/100 WBC (Bld) 6.7 % Normal 1.7-12.0 [facility] Comment on above: Performed By: #### C BC ####[facility] [address]jeipodm[address] [place], [place] [address]Dr. Airam Tripathi NEUT # 5.0 103/ul Normal 1.4-6.5 [facility] Comment on above: Performed By: #### C BC ####[facility] [address]wo[address]iz[address] [place], [place] [address]Dr. Airam Tripathi Neutrophils/100 WBC (Bld) 76.5 % Critically high 43.0-75.0 [facility] Comment on above: Performed By: #### C BC ####[facility] [address]bbaqp[address] [place], [place] [address]Dr. Airam Tripathi Platelet mean volume (Bld) [Entitic vol] 8.4 fL Critically low 9.5-13.5 [facility] Comment on above: Performed By: #### C BC ####[facility] Vcuinoknah[address] [place] [address]Dr. Airam Tripathi PLT 202 103/ul Normal 150-450 [facility] Comment on above: Performed By: #### C BC ####[facility] Iocvvfucta9215 [place] [id number]. Airam Tripathi RBC 2.62 106/ul Critically low 4.20-5.40 [facility] Comment on above: Performed By: #### C BC ####[facility] Fpiybxjfjn19[address] [place] [address]Dr. Airam Tripathi WBC 6.6 103/ul Normal 4.0-11.0 [facility] Comment on above: Performed By: #### C BC ####[facility] Ibhbvxpozs25[address] [place] [address]Dr. Airam Tripathi OSMOLALITYon 06-15-2022 Osmolality [Osmolality] 269 mosm/kg Critically low 275-295 [facility] Comment on above: Performed By: #### O SMO ####[facility] [address]baotwv[address] [place], [place] [address]Dr. Selenaneil Tripathi PROF 14(COMP METB)on 022 Albumin [Mass/Vol] 2.5 g/dL Critically low 3.4-5.0 Th [facility] Comment on above: Performed By: #### C MP, BNP ####[facility] U[address]czbcg[address] [place], [place] [address]Dr. Airam Deuce Albumin/Globulin [Mass ratio] 0.9 {ratio} Normal [facility] Comment on above: Performed By: #### C MP, BNP ####[facility] [address]ppljwlsl[address] [place] [address]Dr. Airam Deuce ALP [Catalytic activity/Vol] 128 U/L Critically high 46-116 [facility] Comment on above: Performed By: #### C MP, BNP ####[facility] Lrxfjbnfme[address] [place] [address]Dr. Airam Tripathi ALT [Catalytic activity/Vol] 14 U/L Normal 14-59 [facility] Comment on above: Performed By: #### C MP, BNP ####[facility] Dmfymmwyff43[address] [place] [address]Dr. Airam Tripathi Anion gap [Moles/Vol] 10.4 mmol/L Normal [facility] Comment on above: Performed By: #### C MP, BNP ####[facility] Nkbqhuhubn050[address] [place] [address]Dr. Airam Tripathi AST [Catalytic activity/Vol] 23 U/L Normal 15-37 [facility] Comment on above: Performed By: #### C MP, BNP ####[facility] Pfyqwoynvx10[address] [place] [address]Dr. Airam Tripathi Bilirubin [Mass/Vol] 0.2 mg/dL Normal 0.2-1.0 [facility] Comment on above: Performed By: #### C MP, BNP ####[facility] Rafuplotek[address] [place], [place] [address]Dr. Airam Tripathi Calcium [Mass/Vol] 7.4 mg/dL Critically low 8.5-10.1 [facility] Comment on above: Performed By: #### C MP, BNP ####[facility] Aehbzzleco[address] [place], [place] [address]Dr. Airam Tripathi Chloride [Moles/Vol] 99 mmol/L Normal 98-107 [facility] Comment on above: Performed By: #### C MP, BNP ####[facility] Xgytktjmta[address] [place], [place] [address]Dr. Airam Tripathi CO2 [Moles/Vol] 24.1 mmol/L Normal 21.0-32.0 [facility] Comment on above: Performed By: #### C MP, BNP ####[facility] Paovljdvtc[address] [place], [place] [address]Dr. Airam Tripathi Creatinine [Mass/Vol] 1.45 mg/dL Critically high 0.55-1.02 [facility] Comment on above: Performed By: #### C MP, BNP ####[facility] Lmbfrzvfzj[address] [place], [place] [address]Dr. Airam Tripathi EGFR-AF LATVIAN 45 mL/min/1.73m2 Critically low >=60 [facility] Comment on above: Performed By: #### C MP, BNP ####[facility] Gqdtawhxmh[address] [place] [address]Dr. Airam Tripathi EGFR-NON AF LATVIAN 37 mL/min/1.73m2 Critically low >=60 [facility] Comment on above: Performed By: #### C MP, BNP ####[facility] Rrildvapwp4[address] [place], [place] [address]Dr. Airam Tripathi Globulin (S) [Mass/Vol] 2.8 g/dL Normal [facility] Comment on above: Performed By: #### C MP, BNP ####[facility] Ckvsgqgqvb22[address] [place], [place] [address]Dr. Airam Tripathi Glucose [Mass/Vol] 82 mg/dL Normal 74-106 [facility] Comment on above: Performed By: #### C MP, BNP ####[facility] Dwqvkbrhzk[address] [place], [place] [address]Dr. Selenaneil Tripathi Potassium [Moles/Vol] 4.5 mmol/L Normal 3.5-5.1 [facility] Comment on above: Performed By: #### C MP, BNP ####[facility] Othpequgbh4[address] [place], [place] [address]Dr. Airam Tripathi Protein [Mass/Vol] 5.3 g/dL Critically low 6.4-8.2 [facility] Comment on above: Performed By: #### C MP, BNP ####[facility] Quvdgfjbvk4[address] [place], [place] [address]Dr. Airam Tripathi Sodium [Moles/Vol] 129 mmol/L Critically low 136-145 [facility] Comment on above: Performed By: #### C MP, BNP ####[facility] Izhhbyylqy9[address] [place], [place] [address]Dr. Airam Tripathi Urea nitrogen [Mass/Vol] 35.0 mg/dL Critically high 7.0-18.0 [facility] Comment on above: Performed By: #### C MP, BNP ####[facility] Hczojqpoym[address] [place], [place] [address]Dr. Airam Tripathi Urea nitrogen/Creatinine [Mass ratio] 24.1 mg/mg Normal [facility] Comment on above: Performed By: #### C MP, BNP ####[facility] Qhogzpqvto7[address] [place] [address]Dr. Airam Tripathi T3, TOTAL (TRIIODOTHYRONINE) on 06-15-2022 T3, TOTAL 113 ng/dL Normal 71-180 [facility] Comment on above: Performed By: #### T 3TOTAL ####[facility] Ybammsnegs[address] [place] [address]Dr. Airam Tripathi BNPon 06-14-2022 Natriuretic peptide B (Bld) [Mass/Vol] 1024.0 pg/mL Critically high <=900.0 [facility] Comment on above: Performed By: #### B FEATHER MAKER, CMP ####[facility] Srxyilxree6[address] [place] [address]Dr. Airam Tripathi CARDIAC CONSUELO 3-6on 2 CK [Catalytic activity/Vol] 116 U/L Normal 26-192 [facility] Comment on above: Performed By: #### C MREP ####[facility] Spvlhijlaf[address] [place], [place] [address]Dr. Airam Tripathi CK.MB [Mass/Vol] ng/mL Normal <=3.60 [facility] Comment on above: Performed By: #### C MREP ####[facility] Uggcavmvju62[address] [place], [place] [address]Dr. Airam Tripathi HSTROP 6.0 pg/mL Normal 4.0-51.3 [facility] Comment on above: Result Comment: CUT- OFF POINTS HAVE BEEN ESTABLISHED BASED ON THE FOURTH UNIVERSAL DEFINITIONS OF MYOCARDIALINFARCTION. THE UPPER REFERENCE LIMIT (URL) OF TROPONIN, DEFINED THE 99TH PERCENTILE OFcTnI DISTRIBUTION IN A REFERENCE POPULATION, HAS BEEN CONFIRMED THE DECISION THRESHOLDFOR [place] DIAGNOSIS. Performed By: #### C MREP ####[facility] [address]jdxqzwtlf65[address] [place], [place] [address]Dr. Airam Tripathi CBC AUTO DIFFon 06-14-2022 BASO # 0.0 103/ul Normal 0.0-0.1 [facility] Comment on above: Performed By: #### C BC ####[facility] [address]nvnfujntq27[address] [place] [id number]. Airam Tripathi Basophils/100 WBC (Bld) 0.3 % Normal 0.2-2.0 [facility] Comment on above: Performed By: #### C BC ####[facility] Iqibaxmzis[address] [place], [place] [address]Dr. Airam Tripathi EO # 0.2 103/ul Normal 0.0-0.7 [facility] Comment on above: Performed By: #### C BC ####[facility] X[address]fhgvglw19[address] [place], [place] [address]Dr. Airam Tripathi Eosinophils/100 WBC (Bld) 2.0 % Normal 0.9-7.0 [facility] Comment on above: Performed By: #### C BC ####[facility] Akiwnzmmqo05[address] [place], [place] [address]Dr. Airam Tripathi Erythrocyte distribution width (RBC) [Ratio] 12.8 % Normal 11.0-15.0 [facility] Comment on above: Performed By: #### C BC ####[facility] Tbaprnssqr[address] [place], [place] [address]Dr. Airam Tripathi Hematocrit (Bld) [Volume fraction] 27.4 % Critically low 36.0-48.0 [facility] Comment on above: Performed By: #### C BC ####[facility] Pbwheqihse[address] [place], [place] [address]Dr. Airam Tripathi Hemoglobin (Bld) [Mass/Vol] 8.7 g/dL Critically low 12.0-16.0 [facility] Comment on above: Performed By: #### C BC ####[facility] Nspqlwnupw8[address] [place], [place] [address]Dr. Airam Tripathi IG # 0.11 10e3/ul Critically high 0.00-0.03 [facility] Comment on above: Performed By: #### C BC ####[facility] Fvwasdbpvm[address] [place], [place] [address]Dr. Airam Tripathi IG % 1.1 % Critically high 0.0-0.5 [facility] Comment on above: Performed By: #### C BC ####[facility] Agxnwtmgfr[address] [place] [address]DrKianna Tripathi LYMPH # 0.9 103/ul Critically low 1.2-3.8 [facility] Comment on above: Performed By: #### C BC ####[facility] Kxwocxsjxg[address] [place] [address]Dr. Airam Tripathi Lymphocytes/100 WBC (Bld) 9.7 % Critically low 20.5-60.0 [facility] Comment on above: Performed By: #### C BC ####[facility] Gughrkzcme[address] [place] [address]DrKianna Tripathi MANUAL DIFF REQ NO Normal [facility] Comment on above: Performed By: #### C BC ####[facility] Gundpnbqhb[address] [place], [place] [address]DrKianna Tripathi MCH (RBC) [Entitic mass] 30.0 pg Normal 26.7-34.0 [facility] Comment on above: Performed By: #### C BC ####[facility] Imltlhswsf[address] [place], [place] [address]Dr. Selneaneil Tripathi MCHC (RBC) [Mass/Vol] 31.8 g/dL Normal 29.9-35.2 [facility] Comment on above: Performed By: #### C BC ####[facility] Dzlpcktpgf[address] [place], [place] [address]DrKianna Tripathi MCV (RBC) [Entitic vol] 94.5 fL Normal 81.0-99.0 [facility] Comment on above: Performed By: #### C BC ####[facility] Ajrlerrfgd[address] [place], [place] [address]DrKianna Tripathi MONO # 0.6 103/ul Normal 0.3-0.8 [facility] Comment on above: Performed By: #### C BC ####[facility] Sfdiztwebh[address] [place] [id number] Tripathi Monocytes/100 WBC (Bld) 5.7 % Normal 1.7-12.0 [facility] Comment on above: Performed By: #### C BC ####[facility] Whdoeccvkz9[address] [place] [address]Dr. Airam Tripathi NEUT # 7.8 103/ul Critically high 1.4-6.5 [facility] Comment on above: Performed By: #### C BC ####[facility] Pyhxzcsfyq86[address] [place] [address]DrKianna Airam Tripathi Neutrophils/100 WBC (Bld) 81.2 % Critically high 43.0-75.0 [facility] Comment on above: Performed By: #### C BC ####[facility] Evuxezyosr05[address] [place] [address]DrKianna Airam Tripathi Platelet mean volume (Bld) [Entitic vol] 8.6 fL Critically low 9.5-13.5 [facility] Comment on above: Performed By: #### C BC ####[facility] [address]iaozwqk[address] [place], [place] [address]Dr. Airam Tripathi PLT 283 103/ul Normal 150-450 [facility] Comment on above: Performed By: #### C BC ####[facility] Uitmhcbbgl[address] [place], [place] [address]DrKianna Airam Tripathi RBC 2.90 106/ul Critically low 4.20-5.40 [facility] Comment on above: Performed By: #### C BC ####[facility] Supzhwwidd[address] [place] [address]Dr. Airam Tripathi WBC 9.6 103/ul Normal 4.0-11.0 [facility] Comment on above: Performed By: #### C BC ####[facility] Sh[address]yvdzfe[address] [place] [address]DrKianna Airam Deuce OSMOLALITYon 06-14-2022 Osmolality [Osmolality] 273 mosm/kg Critically low 275-295 [facility] Comment on above: Performed By: #### O SMO ####[facility] Rkdyrrbsur[address] [place] [address]DrKianna Tripathi PROF 14(COMP METB)on 022 Albumin [Mass/Vol] 3.2 g/dL Critically low 3.4-5.0 [facility] Comment on above: Performed By: #### B FEATHER MAKER, CMP ####[facility] Srqhsrwuih29[address] [place] [address]Dr. Airam Tripathi Albumin/Globulin [Mass ratio] 1.0 {ratio} Normal [facility] Comment on above: Performed By: #### B FEATHER MAKER, CMP ####[facility] Xmkjmhughz5786 [place] [address]Dr. Airam Tripathi ALP [Catalytic activity/Vol] 154 U/L Critically high 46-116 [facility] Comment on above: Performed By: #### B FEATHER MAKER, CMP ####[facility] Apdbbmaajx[address] [place], [place] [address]Dr. Airam Tripathi ALT [Catalytic activity/Vol] 17 U/L Normal 14-59 [facility] Comment on above: Performed By: #### B FEATHER MAKER, CMP ####[facility] Tzegexvoyn[address] [place], [place] [address]Dr. Airam Tripathi Anion gap [Moles/Vol] 12.0 mmol/L Normal [facility] Comment on above: Performed By: #### B FEATHER MAKER, CMP ####[facility] Nilngkghur[address] [place], [place] [address]Dr. Airam Tripathi AST [Catalytic activity/Vol] 25 U/L Normal 15-37 [facility] Comment on above: Performed By: #### B FEATHER MAKER, CMP ####[facility] Clbbjguzcp49[address] [place] [address]Dr. Airam Tripathi Bilirubin [Mass/Vol] 0.3 mg/dL Normal 0.2-1.0 [facility] Comment on above: Performed By: #### B FEATHER MAKER, CMP ####[facility] Omkgnlxipo14[address] [place] [address]Dr. Airam Tripathi Calcium [Mass/Vol] 7.6 mg/dL Critically low 8.5-10.1 [facility] Comment on above: Performed By: #### B FEATHER MAKER, CMP ####[facility] Rljgqlrhmi[address] [place], [place] [address]Dr. Airam Tripathi Chloride [Moles/Vol] 92 mmol/L Critically low 98-107 [facility] Comment on above: Performed By: #### B FEATHER MAKER, CMP ####[facility] Ioqfqjhpic82[address] [place], [place] [address]Dr. Airam Tripathi CO2 [Moles/Vol] 25.2 mmol/L Normal 21.0-32.0 [facility] Comment on above: Performed By: #### B FEATHER MAKER, CMP ####[facility] Ywppyxprfo[address]12[address] [place], [place] [address]Dr. Airam Tripathi Creatinine [Mass/Vol] 1.83 mg/dL Critically high 0.55-1.02 [facility] Comment on above: Performed By: #### B FEATHER MAKER, CMP ####[facility] Jusezsiiti[address] [place], [place] [address]Dr. Airam Tripathi EGFR-AF LATVIAN 34 mL/min/1.73m2 Critically low >=60 [facility] Comment on above: Performed By: #### B FEATHER MAKER, CMP ####[facility] Levehtaram66[address] [place], [place] [address]Dr. Airam Tripathi EGFR-NON AF LATVIAN 28 mL/min/1.73m2 Critically low >=60 [facility] Comment on above: Performed By: #### B FEATHER MAKER, CMP ####[facility] Ztqpdtnbbm[address] [place], [place] [address]Dr. Airam Tripathi Globulin (S) [Mass/Vol] 3.1 g/dL Normal [facility] Comment on above: Performed By: #### B FEATHER MAKER, CMP ####[facility] Zhtxwhzqpi[address] [place], [place] [address]Dr. Airam Tripathi Glucose [Mass/Vol] 77 mg/dL Normal 74-106 [facility] Comment on above: Performed By: #### B FEATHER MAKER, CMP ####[facility] Acpabglmte3[address] [place], [place] [address]Dr. Airam Tripathi Potassium [Moles/Vol] 4.2 mmol/L Normal 3.5-5.1 [facility] Comment on above: Performed By: #### B FEATHER MAKER, CMP ####[facility] Dkplyhelwr0[address] [place], [place] [address]Dr. Airam Tripathi Protein [Mass/Vol] 6.3 g/dL Critically low 6.4-8.2 [facility] Comment on above: Performed By: #### B FEATHER MAKER, CMP ####[facility] Emmlsojxiq30[address] [place], [place] [address]Dr. Airam Tripathi Sodium [Moles/Vol] 125 mmol/L Critically low 136-145 [facility] Comment on above: Performed By: #### B FEATHER MAKER, CMP ####[facility] Hqouuwugyz38[address] [place], [place] [address]Dr. Airam Tripathi Urea nitrogen [Mass/Vol] 35.0 mg/dL Critically high 7.0-18.0 [facility] Comment on above: Performed By: #### B FEATHER MAKER, CMP ####[facility] Sjpxgscowh[address] [place], [place] [address]Dr. Airam Tripathi Urea nitrogen/Creatinine [Mass ratio] 19.1 mg/mg Normal [facility] Comment on above: Performed By: #### B FEATHER MAKER, CMP ####[facility] Kacdxfuixx7[address] [place], [place] [address]Dr. Airam Tripathi UA RANDOM W/MICROSCOPICon BACTERIA TRACE Abnormal NONE SEEN [facility] Comment on above: Performed By: #### U AMIC ####[facility] E[address]woyzfcf[address] [place], [place] [address]Dr. Airam Tripathi Bilirubin Ql (U) Negative Normal NEGATIVE [facility] Comment on above: Performed By: #### U AMIC ####[facility] Bqh[address]rhgy90[address] [place], [place] [address]Dr. Airam Tripathi CAST NONE SEEN Normal NONE SEEN [facility] Comment on above: Performed By: #### U AMIC ####[facility] [address]ylyndxy[address] [place], [place] [address]Dr. Airam Tripathi Clarity (U) CLEAR Normal CLEAR [facility] Comment on above: Performed By: #### U AMIC ####[facility] [address]umjfijpd[address] [place], [place] [address]Dr. Airam Tripathi Color (U) LT. YELLOW Normal YELLOW [facility] Comment on above: Performed By: #### U AMIC ####[facility] Rogxqqiyuh[address] [place] [address]Dr. Airam Tripathi Crystals LM Nom (Urine sed) NONE SEEN Normal NONE SEEN [facility] Comment on above: Performed By: #### U AMIC ####[facility] Lemimqspcj8420 [place] [address]Dr. Airam Tripathi Epithelial cells LM Ql (Urine sed) FEW Abnormal NONE SEEN /RARE [facility] Comment on above: Performed By: #### U AMIC ####[facility] Zxarzlrtso8754 [place] [address]Dr. Airam Tripathi Glucose Ql (U) Negative Normal NEGATIVE [facility] Comment on above: Performed By: #### U AMIC ####[facility] [address]fmuwejaog[address] [place], [place] [address]Dr. Airam Tripathi Hemoglobin Ql (U) Negative Normal NEGATIVE [facility] Comment on above: Performed By: #### U AMIC ####[facility] [address]ssouegjn[address] [place], [place] [address]Dr. Airam Tripathi Ketones Ql (U) Negative Normal NEGATIVE [facility] Comment on above: Performed By: #### U AMIC ####[facility] [address]poyxepxd[address] [place], [place] [address]Dr. Airam Tripathi LEUKOCYTES MODERATE Abnormal NEGATIVE [facility] Comment on above: Performed By: #### U AMIC ####[facility] Crkbvbbqgz[address] [place], [place] [address]Dr. Airam Tripathi MUCOUS NONE SEEN Normal NONE SEEN [facility] Comment on above: Performed By: #### U AMIC ####[facility] Zybmysglkv[address] [place], [place] [address]Dr. Airam Tripathi Nitrite Ql (U) Negative Normal NEGATIVE [facility] Comment on above: Performed By: #### U AMIC ####[facility] [address]qoenjnu[address] [place], [place] [address]Dr. Airam Tripathi pH (U) 5.5 [pH] Normal 5-9 [facility] Comment on above: Performed By: #### U AMIC ####[facility] Krcytjxbez[address] [place] [address]Dr. Airam Tripathi RBC 0-2 Normal 0-2 [facility] Comment on above: Performed By: #### U AMIC ####[facility] J[address]osojeey[address] [place] [id number]. Airam Tripathi SPEC GRAVITY 1.020 Normal 1.005-<=1.02 5 [facility] Comment on above: Performed By: #### U AMIC ####[facility] Nkvpaeoyaq8[address] [place] [address]Dr. Airam Tripathi UA PROTEIN Negative Normal NEGATIVE/ TRACE [facility] Comment on above: Performed By: #### U AMIC ####[facility] Viutjmxfcu7[address] [place] [address]Dr. Airam Tripathi Urobilinogen Qn (U) 0.2 {Ligia'U}/dL Normal 0.2 - 1. 0 [facility] Comment on above: Performed By: #### U AMIC ####[facility] [address]ec[address] [place], [place] [address]Dr. Airam Tripathi WBC 5-10 Abnormal NONE SEEN [facility] Comment on above: Performed By: #### U AMIC ####[facility] X[address]cstzrkz[address] [place], [place] [address]Dr. Airam Tripathi BNPon 06-13-2022 Natriuretic peptide B (Bld) [Mass/Vol] 1496.0 pg/mL Critically high <=900.0 [facility] Comment on above: Performed By: #### T 4, BNP, MG, TSH, CMADM, CRP, CMP ####[facility] Iiigdbukhx[address] [place] [address]Dr. Airam Tripathi CARDIAC CONSUELO 3-6on 2 CK [Catalytic activity/Vol] 125 U/L Normal 26-192 [facility] Comment on above: Performed By: #### C MREP ####[facility] [address]awmbi[address] [place], [place] [address]Dr. Airam Tripathi CK.MB [Mass/Vol] ng/mL Normal <=3.60 [facility] Comment on above: Performed By: #### C MREP ####[facility] Xlfanerovv[address] [place] [address]Dr. Airam Tripathi HSTROP 5.8 pg/mL Normal 4.0-51.3 [facility] Comment on above: Result Comment: CUT- OFF POINTS HAVE BEEN ESTABLISHED BASED ON THE FOURTH UNIVERSAL DEFINITIONS OF MYOCARDIALINFARCTION. THE UPPER REFERENCE LIMIT (URL) OF TROPONIN, DEFINED THE 99TH PERCENTILE OFcTnI DISTRIBUTION IN A REFERENCE POPULATION, HAS BEEN CONFIRMED THE DECISION THRESHOLDFOR [place] DIAGNOSIS. Performed By: #### C MREP ####[facility] Bkculvpqbl[address] [place] [address]Dr. Airam Tripathi CARDIAC CONSUELO ADMITon 022 CK [Catalytic activity/Vol] 121 U/L Normal 26-192 [facility] Comment on above: Performed By: #### T 4, BNP, MG, TSH, CMADM, CRP, CMP ####[facility] Xfnwzuoagu24[address] [place] [address]Dr. Airam Deuce CK.MB [Mass/Vol] 3.06 ng/mL Normal <=3.60 [facility] Comment on above: Performed By: #### T 4, BNP, MG, TSH, CMADM, CRP, CMP ####[facility] Vykrjfhszg[address] [place] [address]Dr. Airam Tripathi HSTROP 6.9 pg/mL Normal 4.0-51.3 [facility] Comment on above: Result Comment: CUT- OFF POINTS HAVE BEEN ESTABLISHED BASED ON THE FOURTH UNIVERSAL DEFINITIONS OF MYOCARDIALINFARCTION. THE UPPER REFERENCE LIMIT (URL) OF TROPONIN, DEFINED THE 99TH PERCENTILE OFcTnI DISTRIBUTION IN A REFERENCE POPULATION, HAS BEEN CONFIRMED THE DECISION THRESHOLDFOR [place] DIAGNOSIS. Performed By: #### T 4, BNP, MG, TSH, CMADM, CRP, CMP ####[facility] Rmcpxwmfxt[address] [place] [address]Dr. Airam Tripathi KATHY 124 ng/mL Critically high 9-82 [facility] Comment on above: Performed By: #### T 4, BNP, MG, TSH, CMADM, CRP, CMP ####[facility] Eywqyzftuc[address] [place] [id number]. Airam Tripathi CBC AUTO DIFFon 06-13-2022 BASO # 0.0 103/ul Normal 0.0-0.1 [facility] Comment on above: Performed By: #### C BC ####[facility] Fjm[address]uktxr[address] [place] [id number]. Selenaneil Tripathi Basophils/100 WBC (Bld) 0.2 % Normal 0.2-2.0 [facility] Comment on above: Performed By: #### C BC ####[facility] Qqziejevqc54[address] [place] [address]Dr. Airam Tripathi EO # 0.2 103/ul Normal 0.0-0.7 [facility] Comment on above: Performed By: #### C BC ####[facility] Dwlqxpobdh44[address] [place] [address]Dr. Airam Tripathi Eosinophils/100 WBC (Bld) 1.5 % Normal 0.9-7.0 [facility] Comment on above: Performed By: #### C BC ####[facility] [address]dmtoao[address] [place], [place] [address]Dr. Airam Deuce Erythrocyte distribution width (RBC) [Ratio] 12.7 % Normal 11.0-15.0 [facility] Comment on above: Performed By: #### C BC ####[facility] Ktlufwbosw[address] [place] [address]Dr. Selenaneil Tripathi Hematocrit (Bld) [Volume fraction] 30.0 % Critically low 36.0-48.0 [facility] Comment on above: Performed By: #### C BC ####[facility] Pxonvuhitk[address] [place] [address]Dr. Airam Tripathi Hemoglobin (Bld) [Mass/Vol] 9.6 g/dL Critically low 12.0-16.0 [facility] Comment on above: Performed By: #### C BC ####[facility] X[address]javq[address] [place], [place] [address]Dr. Airam Tripathi IG # 0.11 10e3/ul Critically high 0.00-0.03 [facility] Comment on above: Performed By: #### C BC ####[facility] Snbfgwdzre[address] [place] [address]DrKianna Airam Tripathi IG % 1.1 % Critically high 0.0-0.5 [facility] Comment on above: Performed By: #### C BC ####[facility] Psygjksvyx7[address] [place] [address]DrKianna Airam Deuce LYMPH # 1.5 103/ul Normal 1.2-3.8 [facility] Comment on above: Performed By: #### C BC ####[facility] [address]fxt[address] [place], [place] [address]DrKianna Airam Deuce Lymphocytes/100 WBC (Bld) 14.9 % Critically low 20.5-60.0 [facility] Comment on above: Performed By: #### C BC ####[facility] [address]qa[address] [place], [place] [address]DrKianna Airam Deuce MANUAL DIFF REQ NO Normal [facility] Comment on above: Performed By: #### C BC ####[facility] [address]khmece[address] [place], [place] [address]DrKianna Airam Tripathi MCH (RBC) [Entitic mass] 30.0 pg Normal 26.7-34.0 [facility] Comment on above: Performed By: #### C BC ####[facility] [address]xixitgejh[address] [place], [place] [address]DrKianna Airam Tripathi MCHC (RBC) [Mass/Vol] 32.0 g/dL Normal 29.9-35.2 [facility] Comment on above: Performed By: #### C BC ####[facility] [place] [address] [place], [place] [address]DrKianna Airam Deuce MCV (RBC) [Entitic vol] 93.8 fL Normal 81.0-99.0 [facility] Comment on above: Performed By: #### C BC ####[facility] [place] [address] [place], [place] [id number] Selenaneil Tripathi MONO # 0.8 103/ul Normal 0.3-0.8 [facility] Comment on above: Performed By: #### C BC ####[facility] [place] Llbspvasfs[address] [place] [id number]. Airam Tripathi Monocytes/100 WBC (Bld) 7.3 % Normal 1.7-12.0 [facility] Comment on above: Performed By: #### C BC ####[facility] Qmzwncftsi57[address] [place] [id number]. Airam Tripathi NEUT # 7.8 103/ul Critically high 1.4-6.5 [facility] Comment on above: Performed By: #### C BC ####[facility] V[address]odmjkjbb[address] [place] [address]Dr. Airam Tripathi Neutrophils/100 WBC (Bld) 75.0 % Normal 43.0-75.0 [facility] Comment on above: Performed By: #### C BC ####[facility] Yhxvtqktto24[address] [place] [address]Dr. Airam Tripathi Platelet mean volume (Bld) [Entitic vol] 9.1 fL Critically low 9.5-13.5 [facility] Comment on above: Performed By: #### C BC ####[facility] Tw[address]ceib[address] [place], [place] [address]Dr. Airam Tripathi PLT 341 103/ul Normal 150-450 [facility] Comment on above: Performed By: #### C BC ####[facility] [address] [place] [address]Dr. Airam Tripathi RBC 3.20 106/ul Critically low 4.20-5.40 [facility] Comment on above: Performed By: #### C BC ####[facility] W[address]lnijwpt[address] [place] [id number]. Airam Tripathi WBC 10.4 103/ul Normal 4.0-11.0 [facility] Comment on above: Performed By: #### C BC ####[facility] Rwcehllfxs4[address] [place] [phone]. Airam Tripathi CRPon 06-13-2022 CRP [Mass/Vol] mg/L Normal <=1.0 [facility] Comment on above: Performed By: #### T 4, BNP, MG, TSH, CMADM, CRP, CMP ####[facility] [place] Ngmavvdxdn[address] [place] [phone]. Airam Deuce CT HEAD WO CONon 06-13-2022 CT HEAD WO CON Normal [facility] Covid-19 PCR ([facility])on 05-26 SARS-CoV-2 (COVID-19) RNA MIKE+probe Ql (Unsp spec) Not detected Normal NOT DETECTED [facility] Comment on above: Result Comment: When diagnostic [...] for this test is supported by the Software Engineer Developer of Health and Human Service's declaration that [...] used). Performed By: #### C VDTBH ####[facility] Kxy[address]avlywm[address] [place] [id number]. Airam Deuce LACTATE/LACTIC ACIDon 2021 Lactate [Moles/Vol] 0.5 mmol/L Normal 0.4-1.9 [facility] Comment on above: Performed By: #### L ACT ####[facility] An[address]fvf[address] [place], [place] [address]Dr. Selenaneil Tripathi MAGNESIUMon 06-13-2022 Magnesium [Mass/Vol] 1.9 mg/dL Normal 1.8-2.4 [facility] Comment on above: Performed By: #### T 4, BNP, MG, TSH, CMADM, CRP, CMP ####[facility] Fyaarnxqkt[address] [place] [address]Dr. Airam Tripathi PROF 14(COMP METB)on 022 Albumin [Mass/Vol] 3.8 g/dL Normal 3.4-5.0 [facility] Comment on above: Performed By: #### T 4, BNP, MG, TSH, CMADM, CRP, CMP ####[facility] Hnmpznyrbd[address] [place] [address]Dr. Ariam Tripathi Albumin/Globulin [Mass ratio] 1.1 {ratio} Normal [facility] Comment on above: Performed By: #### T 4, BNP, MG, TSH, CMADM, CRP, CMP ####[facility] [place] Vnfwricbrk[address] [place] [address]Dr. Airam Tripathi ALP [Catalytic activity/Vol] 161 U/L Critically high 46-116 [facility] Comment on above: Performed By: #### T 4, BNP, MG, TSH, CMADM, CRP, CMP ####[facility] [place] Vbyjdphadu[address] [place] [address]Dr. Airam Tripathi ALT [Catalytic activity/Vol] 21 U/L Normal 14-59 [facility] Comment on above: Performed By: #### T 4, BNP, MG, TSH, CMADM, CRP, CMP ####[facility] [place] Yiighlxqku32[address] [place] [address]Dr. Airam Tripathi Anion gap [Moles/Vol] 12.6 mmol/L Normal [facility] Comment on above: Performed By: #### T 4, BNP, MG, TSH, CMADM, CRP, CMP ####[facility] [place] Wfufjvjfyp3[address] [place] [address]Dr. Airam Tripathi AST [Catalytic activity/Vol] 30 U/L Normal 15-37 [facility] Comment on above: Performed By: #### T 4, BNP, MG, TSH, CMADM, CRP, CMP ####[facility] Ibaexaperc[address] [place] [address]Dr. Airam Tripathi Bilirubin [Mass/Vol] 0.3 mg/dL Normal 0.2-1.0 [facility] Comment on above: Performed By: #### T 4, BNP, MG, TSH, CMADM, CRP, CMP ####[facility] Scodwwvtqx68[address] [place] [address]Dr. Airam Tripathi Calcium [Mass/Vol] 8.8 mg/dL Normal 8.5-10.1 [facility] Comment on above: Performed By: #### T 4, BNP, MG, TSH, CMADM, CRP, CMP ####[facility] Uyadothrqz38[address] [place] [address]Dr. Airam Tripathi Chloride [Moles/Vol] 91 mmol/L Critically low 98-107 [facility] Comment on above: Performed By: #### T 4, BNP, MG, TSH, CMADM, CRP, CMP ####[facility] [place] [address] [place], [place] [address]Dr. Airam Tripathi CO2 [Moles/Vol] 26.9 mmol/L Normal 21.0-32.0 [facility] Comment on above: Performed By: #### T 4, BNP, MG, TSH, CMADM, CRP, CMP ####[facility] [place] [address]twtvdbs[address] [place], [place] [address]Dr. Airam Tripathi Creatinine [Mass/Vol] 1.83 mg/dL Critically high 0.55-1.02 [facility] Comment on above: Performed By: #### T 4, BNP, MG, TSH, CMADM, CRP, CMP ####[facility] [place] [address] [place], [place] [address]Dr. Airam Tripathi EGFR-AF LATVIAN 34 mL/min/1.73m2 Critically low >=60 [facility] Comment on above: Performed By: #### T 4, BNP, MG, TSH, CMADM, CRP, CMP ####[facility] [place] [address]rklbheym[address] [place], [place] [address]Dr. Airam Tripathi EGFR-NON AF LATVIAN 28 mL/min/1.73m2 Critically low >=60 [facility] Comment on above: Performed By: #### T 4, BNP, MG, TSH, CMADM, CRP, CMP ####[facility] [address]ckuw[address] [place], [place] [address]Dr. Airam Tripathi Globulin (S) [Mass/Vol] 3.5 g/dL Normal [facility] Comment on above: Performed By: #### T 4, BNP, MG, TSH, CMADM, CRP, CMP ####[facility] Pqetvcqbri5[address] [place] [address]Dr. Airam Tripathi Glucose [Mass/Vol] 96 mg/dL Normal 74-106 [facility] Comment on above: Performed By: #### T 4, BNP, MG, TSH, CMADM, CRP, CMP ####[facility] Iufzljslet[address] [place] [address]Dr. Airam Tripathi Potassium [Moles/Vol] 4.5 mmol/L Normal 3.5-5.1 [facility] Comment on above: Performed By: #### T 4, BNP, MG, TSH, CMADM, CRP, CMP ####[facility] Bidazdctac7[address] [place] [address]Dr. Airam Tripathi Protein [Mass/Vol] 7.3 g/dL Normal 6.4-8.2 [facility] Comment on above: Performed By: #### T 4, BNP, MG, TSH, CMADM, CRP, CMP ####[facility] Ywrumdxtqf75[address] [place] [address]Dr. Airam Tripathi Sodium [Moles/Vol] 126 mmol/L Critically low 136-145 [facility] Comment on above: Performed By: #### T 4, BNP, MG, TSH, CMADM, CRP, CMP ####[facility] Eamartmiyl25[address] [place] [address]Dr. Airam Tripathi Urea nitrogen [Mass/Vol] 34.0 mg/dL Critically high 7.0-18.0 [facility] Comment on above: Performed By: #### T 4, BNP, MG, TSH, CMADM, CRP, CMP ####[facility] Xqncnxodnv[address] [place] [address]Dr. Airam Tripathi Urea nitrogen/Creatinine [Mass ratio] 18.6 mg/mg Normal [facility] Comment on above: Performed By: #### T 4, BNP, MG, TSH, CMADM, CRP, CMP ####[facility] Ezmnjknvsh[address] [place] [id number]. Airam Deuce Albumin [Mass/Vol] 3.4 g/dL Normal 3.4-5.0 [facility] Comment on above: Performed By: #### C MP ####[facility] Ikvsvuufuk0244 [place] [address]Dr. Selenaneil Deuce Albumin/Globulin [Mass ratio] 1.0 {ratio} Normal [facility] Comment on above: Performed By: #### C MP ####[facility] Dgrimxyftt8914 [place] [address]Dr. Airam Tripathi ALP [Catalytic activity/Vol] 151 U/L Critically high 46-116 [facility] Comment on above: Performed By: #### C MP ####[facility] Uvizbrertx4[address] [place] [address]Dr. Airam Tripathi ALT [Catalytic activity/Vol] 20 U/L Normal 14-59 [facility] Comment on above: Performed By: #### C MP ####[facility] Qlrekuvjff10[address] [place] [address]Dr. Selenaneil Deuce Anion gap [Moles/Vol] 11.7 mmol/L Normal [facility] Comment on above: Performed By: #### C MP ####[facility] [address]twzqby[address] [place], [place] [address]Dr. Airam Tripathi AST [Catalytic activity/Vol] 28 U/L Normal 15-37 [facility] Comment on above: Performed By: #### C MP ####[facility] [address]akp[address] [place], [place] [address]Dr. Airam Tripathi Bilirubin [Mass/Vol] 0.3 mg/dL Normal 0.2-1.0 [facility] Comment on above: Performed By: #### C MP ####[facility] Finajptukp13[address] [place] [address]Dr. Airam Tripathi Calcium [Mass/Vol] 8.5 mg/dL Normal 8.5-10.1 [facility] Comment on above: Performed By: #### C MP ####[facility] Huuwkrqscw5989 [place] [id number]. Airam Tripathi Chloride [Moles/Vol] 91 mmol/L Critically low 98-107 [facility] Comment on above: Performed By: #### C MP ####[facility] Xtdzjsbmak2683 [place] [id number]. Airam Tripathi CO2 [Moles/Vol] 28.3 mmol/L Normal 21.0-32.0 [facility] Comment on above: Performed By: #### C MP ####[facility] [address]dedyamb[address] [place], [place] [address]Dr. Airam Tripathi Creatinine [Mass/Vol] 1.68 mg/dL Critically high 0.55-1.02 [facility] Comment on above: Performed By: #### C MP ####[facility] [address]qcjhcuu[address] [place], [place] [address]Dr. Airam Tripathi EGFR-AF LATVIAN 38 mL/min/1.73m2 Critically low >=60 [facility] Comment on above: Performed By: #### C MP ####[facility] Mbsmwslvux[address] [place], [place] [address]Dr. Airam Tripathi EGFR-NON AF LATVIAN 31 mL/min/1.73m2 Critically low >=60 [facility] Comment on above: Performed By: #### C MP ####[facility] [address]owvscnt[address] [place], [place] [address]Dr. Airam Tripathi Globulin (S) [Mass/Vol] 3.5 g/dL Normal [facility] Comment on above: Performed By: #### C MP ####[facility] Yodpntinae[address] [place], [place] [address]Dr. Airam Tripathi Glucose [Mass/Vol] 74 mg/dL Normal 74-106 [facility] Comment on above: Performed By: #### C MP ####[facility] Ypidefhvdp[address] [place], [place] [address]Dr. Airam Tripathi Potassium [Moles/Vol] 4.0 mmol/L Normal 3.5-5.1 [facility] Comment on above: Performed By: #### C MP ####[facility] Rzljmxnzts9061 [place] [address]Dr. Airam Tripathi Protein [Mass/Vol] 6.9 g/dL Normal 6.4-8.2 [facility] Comment on above: Performed By: #### C MP ####[facility] Jroqdvmmew039[address] [place] [address]Dr. Airam Tripathi Sodium [Moles/Vol] 127 mmol/L Critically low 136-145 Th [facility] Comment on above: Performed By: #### C MP ####[facility] Ytdumaoytf[address] [place], [place] [address]Dr. Airam Tripathi Urea nitrogen [Mass/Vol] 29.0 mg/dL Critically high 7.0-18.0 [facility] Comment on above: Performed By: #### C MP ####[facility] T[address]hwwes[address] [place], [place] [address]Dr. Airam Tripathi Urea nitrogen/Creatinine [Mass ratio] 17.3 mg/mg Normal [facility] Comment on above: Performed By: #### C MP ####[facility] Ctvegacbmu[address] [place], [place] [address]Dr. Airam Tripathi T4on 06-13-2022 T4 [Mass/Vol] 6.80 ug/dL Normal 4.80-13.90 [facility] Comment on above: Performed By: #### T 4, BNP, MG, TSH, CMADM, CRP, CMP ####[facility] [address]zelcpla[address] [place], [place] [address]Dr. Airam Tripathi TSHon 06-13-2022 TSH 0.101 uIU/mL Critically low 0.358-3.740 [facility] Comment on above: Performed By: #### T 4, BNP, MG, TSH, CMADM, CRP, CMP ####[facility] Fteivhmsoi[address] [place], [place] [address]Dr. Airam Tripathi OSMOLALITYon 06-08-2022 Osmolality [Osmolality] 272 mosm/kg Critically low 275-295 [facility] Comment on above: Performed By: #### O SMO ####[facility] [address]liwyp[address] [place], [place] [address]Dr. Airam Tripathi CBC AUTO DIFFon 06-06-2022 BASO # 0.0 103/ul Normal 0.0-0.1 [facility] Comment on above: Performed By: #### C BC ####[facility] Vossvufpvp34[address] [place] [id number]. Airam Tripathi Basophils/100 WBC (Bld) 0.3 % Normal 0.2-2.0 [facility] Comment on above: Performed By: #### C BC ####[facility] Yvidpdkcwr8524 [place] [address]Dr. Airam Tripathi EO # 0.2 103/ul Normal 0.0-0.7 [facility] Comment on above: Performed By: #### C BC ####[facility] [address]wftkt[address] [place], [place] [address]Dr. Airam Tripathi Eosinophils/100 WBC (Bld) 2.5 % Normal 0.9-7.0 [facility] Comment on above: Performed By: #### C BC ####[facility] [address]hudnj[address] [place], [place] [address]Dr. Airam Tripathi Erythrocyte distribution width (RBC) [Ratio] 12.9 % Normal 11.0-15.0 [facility] Comment on above: Performed By: #### C BC ####[facility] [address]irfufgbo[address] [place], [place] [address]Dr. Airam Tripathi Hematocrit (Bld) [Volume fraction] 29.8 % Critically low 36.0-48.0 [facility] Comment on above: Performed By: #### C BC ####[facility] [address]cghxwbk[address] [place], [place] [address]Dr. Airam Tripathi Hemoglobin (Bld) [Mass/Vol] 9.7 g/dL Critically low 12.0-16.0 [facility] Comment on above: Performed By: #### C BC ####[facility] Moekodvchw[address] [place] [address]Dr. Airam Tripathi IG # 0.03 10e3/ul Normal 0.00-0.03 [facility] Comment on above: Performed By: #### C BC ####[facility] Hialvvhzdh1672 [place] [id number]. Airam Tripathi IG % 0.3 % Normal 0.0-0.5 [facility] Comment on above: Performed By: #### C BC ####[facility] Sfuufsmnjz1465 [place] [address]Dr. Airam Deuce LYMPH # 1.3 103/ul Normal 1.2-3.8 [facility] Comment on above: Performed By: #### C BC ####[facility] Fupjafxivn74[address] [place] [address]Dr. Airam Deuce Lymphocytes/100 WBC (Bld) 14.6 % Critically low 20.5-60.0 [facility] Comment on above: Performed By: #### C BC ####[facility] Ezjrkcsyja99[address] [place] [address]Dr. Selenaneil Tripathi MANUAL DIFF REQ NO Normal [facility] Comment on above: Performed By: #### C BC ####[facility] Rdglogolhr5391 [place] [address]Dr. Airam Tripathi MCH (RBC) [Entitic mass] 30.6 pg Normal 26.7-34.0 [facility] Comment on above: Performed By: #### C BC ####[facility] [address]rkb[address] [place], [place] [address]Dr. Airam Tripathi MCHC (RBC) [Mass/Vol] 32.6 g/dL Normal 29.9-35.2 [facility] Comment on above: Performed By: #### C BC ####[facility] Tdmcgnbreo7569 [place] [address]Dr. Airam Tripathi MCV (RBC) [Entitic vol] 94.0 fL Normal 81.0-99.0 [facility] Comment on above: Performed By: #### C BC ####[facility] [address]uedv[address] [place], [place] [address]Dr. Airam Tripathi MONO # 0.5 103/ul Normal 0.3-0.8 [facility] Comment on above: Performed By: #### C BC ####[facility] Hlnudipanx1258 [place] [address]Dr. Airam Tripathi Monocytes/100 WBC (Bld) 5.7 % Normal 1.7-12.0 [facility] Comment on above: Performed By: #### C BC ####[facility] Selkdmwpre88[address] [place] [address]Dr. Airam Tripathi NEUT # 6.9 103/ul Critically high 1.4-6.5 [facility] Comment on above: Performed By: #### C BC ####[facility] Byrdhqipdd2010 [place] [address]Dr. Airam Tripathi Neutrophils/100 WBC (Bld) 76.6 % Critically high 43.0-75.0 [facility] Comment on above: Performed By: #### C BC ####[facility] Hkkluwijqj3309 [place] [address]Dr. Airam Tripathi Platelet mean volume (Bld) [Entitic vol] 9.2 fL Critically low 9.5-13.5 [facility] Comment on above: Performed By: #### C BC ####[facility] [address]mm[address]znurpd[address] [place], [place] [address]Dr. Airam Tripathi PLT 271 103/ul Normal 150-450 [facility] Comment on above: Performed By: #### C BC ####[facility] Jtkneqaioe[address] [place], [place] [address]Dr. Airam Tripathi RBC 3.17 106/ul Critically low 4.20-5.40 [facility] Comment on above: Performed By: #### C BC ####[facility] Nikcmxeyde[address] [place], [place] [address]Dr. Airam Tripathi WBC 9.1 103/ul Normal 4.0-11.0 [facility] Comment on above: Performed By: #### C BC ####[facility] Ddbjlybwza[address] [place], [place] [address]Dr. Airam Tripathi PROF 14(COMP METB)on 06-06-2 022 Albumin [Mass/Vol] 3.4 g/dL Normal 3.4-5.0 [facility] Comment on above: Performed By: #### C MP ####[facility] Owcjyrndeo16[address] [place] [address]Dr. Airam Tripathi Albumin/Globulin [Mass ratio] 1.0 {ratio} Normal [facility] Comment on above: Performed By: #### C MP ####[facility] Yuizugutdf2056 [place] [address]Dr. Airam Tripathi ALP [Catalytic activity/Vol] 156 U/L Critically high 46-116 [facility] Comment on above: Performed By: #### C MP ####[facility] N[address]rqabwrx[address] [place], [place] [address]Dr. Airam Deuce ALT [Catalytic activity/Vol] 18 U/L Normal 14-59 [facility] Comment on above: Performed By: #### C MP ####[facility] Xybmlweiam[address] [place], [place] [address]Dr. Airam Tripathi Anion gap [Moles/Vol] 10.8 mmol/L Normal [facility] Comment on above: Performed By: #### C MP ####[facility] Ogqacbdhtn[address] [place], [place] [address]Dr. Airam Deuce AST [Catalytic activity/Vol] 27 U/L Normal 15-37 [facility] Comment on above: Performed By: #### C MP ####[facility] Ymtciyotlg[address] [place], [place] [address]Dr. Airam Tripathi Bilirubin [Mass/Vol] 0.2 mg/dL Normal 0.2-1.0 [facility] Comment on above: Performed By: #### C MP ####[facility] Iutsltiezc[address] [place], [place] [address]Dr. Airam Tripathi Calcium [Mass/Vol] 8.1 mg/dL Critically low 8.5-10.1 [facility] Comment on above: Performed By: #### C MP ####[facility] Xuuwfwtdge[address] [place], [place] [address]Dr. Airam Tripathi Chloride [Moles/Vol] 92 mmol/L Critically low 98-107 [facility] Comment on above: Performed By: #### C MP ####[facility] Xcpuffoplu[address] [place], [place] [address]Dr. Airam Tripathi CO2 [Moles/Vol] 27.4 mmol/L Normal 21.0-32.0 [facility] Comment on above: Performed By: #### C MP ####[facility] Avpkxlreys14[address] [place] [address]Dr. Airam Tripathi Creatinine [Mass/Vol] 1.57 mg/dL Critically high 0.55-1.02 [facility] Comment on above: Performed By: #### C MP ####[facility] Tzjxraiudn4934 [place] [address]Dr. Airam Tripathi EGFR-AF LATVIAN 41 mL/min/1.73m2 Critically low >=60 [facility] Comment on above: Performed By: #### C MP ####[facility] Mpklvldmqe2202 [place] [address]Dr. Airam Tripathi EGFR-NON AF LATVIAN 34 mL/min/1.73m2 Critically low >=60 [facility] Comment on above: Performed By: #### C MP ####[facility] [address]kwspbjmt[address] [place], [place] [address]Dr. Airam Tripathi Globulin (S) [Mass/Vol] 3.4 g/dL Normal [facility] Comment on above: Performed By: #### C MP ####[facility] Fjbunnrzil[address] [place], [place] [address]Dr. Airam Deuce Glucose [Mass/Vol] 82 mg/dL Normal 74-106 [facility] Comment on above: Performed By: #### C MP ####[facility] Fczaiortzk[address] [place], [place] [address]Dr. Airam Tripathi Potassium [Moles/Vol] 4.2 mmol/L Normal 3.5-5.1 [facility] Comment on above: Performed By: #### C MP ####[facility] Pdsednvnmp[address] [place], [place] [address]Dr. Airam Tripathi Protein [Mass/Vol] 6.8 g/dL Normal 6.4-8.2 [facility] Comment on above: Performed By: #### C MP ####[facility] Rmlwwaqnca[address] [place], [place] [address]Dr. Airam Tripathi Sodium [Moles/Vol] 126 mmol/L Critically low 136-145 Th [facility] Comment on above: Performed By: #### C MP ####[facility] [address]wnbkrprv[address] [place], [place] [address]Dr. Airam Tripathi Urea nitrogen [Mass/Vol] 35.0 mg/dL Critically high 7.0-18.0 [facility] Comment on above: Performed By: #### C MP ####[facility] Wpcrwkilsh[address] [place], [place] [address]Dr. Airam Tripathi Urea nitrogen/Creatinine [Mass ratio] 22.3 mg/mg Normal [facility] Comment on above: Performed By: #### C MP ####[facility] Fqgrhyxyev[address] [place], [place] [address]Dr. Airam Tripathi OSMOLALITYon 06-02-2022 Osmolality [Osmolality] 276 mosm/kg Normal 275-295 [facility] Comment on above: Performed By: #### O SMO ####[facility] [address]xeutswhg[address] [place], [place] [address]Dr. Airam Tripathi CBC AUTO DIFFon 06-01-2022 BASO # 0.1 103/ul Normal 0.0-0.1 [facility] Comment on above: Performed By: #### C BC ####[facility] Qufsywgifh[address] [place], [place] [address]Dr. Airam Deuce Basophils/100 WBC (Bld) 0.7 % Normal 0.2-2.0 [facility] Comment on above: Performed By: #### C BC ####[facility] [address]or[address]umjgt[address] [place], [place] [address]Dr. Airam Deuce EO # 0.3 103/ul Normal 0.0-0.7 [facility] Comment on above: Performed By: #### C BC ####[facility] Okdkstsbcl[address] [place], [place] [address]Dr. Airam Deuce Eosinophils/100 WBC (Bld) 3.3 % Normal 0.9-7.0 [facility] Comment on above: Performed By: #### C BC ####[facility] Jliiszuxyr4[address] [place] [address]Dr. Airam Tripathi Erythrocyte distribution width (RBC) [Ratio] 13.2 % Normal 11.0-15.0 [facility] Comment on above: Performed By: #### C BC ####[facility] Tkpjdhpnxf5203 [place] [address]Dr. Airam Tripathi Hematocrit (Bld) [Volume fraction] 32.0 % Critically low 36.0-48.0 [facility] Comment on above: Performed By: #### C BC ####[facility] [address]wlibytkif[address] [place], [place] [address]Dr. Airam Tripathi Hemoglobin (Bld) [Mass/Vol] 10.3 g/dL Critically low 12.0-16.0 [facility] Comment on above: Performed By: #### C BC ####[facility] [address]yftkpm[address] [place], [place] [address]Dr. Airam Tripathi IG # 0.05 10e3/ul Critically high 0.00-0.03 [facility] Comment on above: Performed By: #### C BC ####[facility] [address]nuahduow[address] [place], [place] [address]Dr. Selenaneil Tripathi IG % 0.7 % Critically high 0.0-0.5 [facility] Comment on above: Performed By: #### C BC ####[facility] Pbseaznrvw[address] [place], [place] [address]Dr. Airam Tripathi LYMPH # 1.7 103/ul Normal 1.2-3.8 [facility] Comment on above: Performed By: #### C BC ####[facility] Cqutxvzzig[address] [place], [place] [address]Dr. Airam Tripathi Lymphocytes/100 WBC (Bld) 22.6 % Normal 20.5-60.0 [facility] Comment on above: Performed By: #### C BC ####[facility] Hogwbevrsg[address] [place], [place] [address]Dr. Selenaneil Tripathi MANUAL DIFF REQ NO Normal [facility] Comment on above: Performed By: #### C BC ####[facility] Fmxaexbqyn11[address] [place] [address]Dr. Airam Tripathi MCH (RBC) [Entitic mass] 30.8 pg Normal 26.7-34.0 [facility] Comment on above: Performed By: #### C BC ####[facility] Cxnigpigsj7735 [place] [address]Dr. Airam Tripathi MCHC (RBC) [Mass/Vol] 32.2 g/dL Normal 29.9-35.2 [facility] Comment on above: Performed By: #### C BC ####[facility] Wdsfqmbeqa[address] [place], [place] [address]Dr. Airam Tripathi MCV (RBC) [Entitic vol] 95.8 fL Normal 81.0-99.0 [facility] Comment on above: Performed By: #### C BC ####[facility] Damglyeuka[address] [place], [place] [address]Dr. Airam Deuce MONO # 0.6 103/ul Normal 0.3-0.8 [facility] Comment on above: Performed By: #### C BC ####[facility] Xvpwttrtuu8[address] [place], [place] [address]Dr. Airam Deuce Monocytes/100 WBC (Bld) 8.6 % Normal 1.7-12.0 [facility] Comment on above: Performed By: #### C BC ####[facility] Yyayuiiaoj[address] [place], [place] [address]Dr. Airam Tripathi NEUT # 4.8 103/ul Normal 1.4-6.5 [facility] Comment on above: Performed By: #### C BC ####[facility] Powkxdtpqr23[address] [place], [place] [address]Dr. Airam Deuce Neutrophils/100 WBC (Bld) 64.1 % Normal 43.0-75.0 [facility] Comment on above: Performed By: #### C BC ####[facility] Zsvihcwwvn3835[address] [place], [place] [address]Dr. Airam Deuce Platelet mean volume (Bld) [Entitic vol] 10.0 fL Normal 9.5-13.5 [facility] Comment on above: Performed By: #### C BC ####[facility] Ivkapcmyfu7046 [place] [id number]. Airam Tripathi PLT 322 103/ul Normal 150-450 [facility] Comment on above: Performed By: #### C BC ####[facility] Swtsbnlvjg2459 [place] [id number]. Airam Tripathi RBC 3.34 106/ul Critically low 4.20-5.40 [facility] Comment on above: Performed By: #### C BC ####[facility] Msbiqufchm6374 [place] [address]Dr. Airam Tripathi WBC 7.5 103/ul Normal 4.0-11.0 [facility] Comment on above: Performed By: #### C BC ####[facility] Ugtkkcwtyp1943 [place] [address]Dr. Airam Tripathi PROF 14(COMP METB)on 022 Albumin [Mass/Vol] 3.5 g/dL Normal 3.4-5.0 [facility] Comment on above: Performed By: #### C MP ####[facility] Coicfzndqh6108 [place] [address]Dr. Selenaneil Deuce Albumin/Globulin [Mass ratio] 1.1 {ratio} Normal [facility] Comment on above: Performed By: #### C MP ####[facility] Lasxpcixoa2271 [place] [address]Dr. Airam Tripathi ALP [Catalytic activity/Vol] 167 U/L Critically high 46-116 [facility] Comment on above: Performed By: #### C MP ####[facility] Ztzfqqqdrl9623 [place] [address]Dr. Airam Tripathi ALT [Catalytic activity/Vol] 24 U/L Normal 14-59 [facility] Comment on above: Performed By: #### C MP ####[facility] Dljsunqwni4205 [place] [address]Dr. Airam Tripathi Anion gap [Moles/Vol] 14.1 mmol/L Normal [facility] Comment on above: Performed By: #### C MP ####[facility] Mifdiwojqs4203 [place] [address]Dr. Airam Tripathi AST [Catalytic activity/Vol] 27 U/L Normal 15-37 [facility] Comment on above: Performed By: #### C MP ####[facility] Skjunqdygg4668 [place] [address]Dr. Airam Tripathi Bilirubin [Mass/Vol] 0.3 mg/dL Normal 0.2-1.0 [facility] Comment on above: Performed By: #### C MP ####[facility] Ytaohkpivo0000[address] [place], [place] [address]Dr. Airam Tripathi Calcium [Mass/Vol] 8.0 mg/dL Critically low 8.5-10.1 [facility] Comment on above: Performed By: #### C MP ####[facility] Xurrzldzmc710[address] [place], [place] [address]Dr. Airam Tripathi Chloride [Moles/Vol] 96 mmol/L Critically low 98-107 [facility] Comment on above: Performed By: #### C MP ####[facility] Yclholoovo4635[address] [place], [place] [address]Dr. Airam Tripathi CO2 [Moles/Vol] 24.6 mmol/L Normal 21.0-32.0 [facility] Comment on above: Performed By: #### C MP ####[facility] Ompethnpma16[address] [place], [place] [address]Dr. Airam Tripathi Creatinine [Mass/Vol] 1.79 mg/dL Critically high 0.55-1.02 [facility] Comment on above: Performed By: #### C MP ####[facility] Colnuephon032[address] [place], [place] [address]Dr. Airam Tripathi EGFR-AF LATVIAN 35 mL/min/1.73m2 Critically low >=60 [facility] Comment on above: Performed By: #### C MP ####[facility] Tnayveibnp4[address] [place], [place] [address]Dr. Airam Tripathi EGFR-NON AF LATVIAN 29 mL/min/1.73m2 Critically low >=60 [facility] Comment on above: Performed By: #### C MP ####[facility] Wpnxxjvlkr1785 [place] [id number]. Airam Tripathi Globulin (S) [Mass/Vol] 3.3 g/dL Normal [facility] Comment on above: Performed By: #### C MP ####[facility] Bjsfdpqjhw2133 [place] [address]Dr. Airam Tripathi Glucose [Mass/Vol] 58 mg/dL Critically low 74-106 [facility] Comment on above: Performed By: #### C MP ####[facility] Anxgydbvfe2783 [place] [address]Dr. Airam Tripathi Potassium [Moles/Vol] 4.7 mmol/L Normal 3.5-5.1 [facility] Comment on above: Performed By: #### C MP ####[facility] Qdykjrsbmq06[address] [place], [place] [address]Dr. Airam Tripathi Protein [Mass/Vol] 6.8 g/dL Normal 6.4-8.2 [facility] Comment on above: Performed By: #### C MP ####[facility] Xqdosbqmir0578[address] [place], [place] [address]Dr. Airam Tripathi Sodium [Moles/Vol] 130 mmol/L Critically low 136-145 [facility] Comment on above: Performed By: #### C MP ####[facility] Dpfmglbjqd0044[address] [place], [place] [address]Dr. Airam Tripathi Urea nitrogen [Mass/Vol] 30.0 mg/dL Critically high 7.0-18.0 [facility] Comment on above: Performed By: #### C MP ####[facility] Vbylznmwig6627[address] [place], [place] [address]Dr. Airam Tripathi Urea nitrogen/Creatinine [Mass ratio] 16.8 mg/mg Normal [facility] Comment on above: Performed By: #### C MP ####[facility] Saykegbpib6[address] [place], [place] [address]Dr. Airam Tripathi OSMOLALITYon 05-28-2022 Osmolality [Osmolality] 275 mosm/kg Normal 275-295 [facility] Comment on above: Performed By: #### O SMO ####[facility] Aoaiprwjhj8586 [place] [id number]. Airam Tripathi CBC AUTO DIFFon 05-26-2022 BASO # 0.0 103/ul Normal 0.0-0.1 [facility] Comment on above: Performed By: #### C BC ####[facility] Kvyxtertzc[address] [place], [place] [address]Dr. Selenaneil Tripathi Basophils/100 WBC (Bld) 0.4 % Normal 0.2-2.0 [facility] Comment on above: Performed By: #### C BC ####[facility] Oryxayljcn2415[address] [place], [place] [address]Dr. Selenaneil Tripathi EO # 0.3 103/ul Normal 0.0-0.7 [facility] Comment on above: Performed By: #### C BC ####[facility] Vjelzpvkuc192[address] [place], [place] [address]Dr. Airam Tripathi Eosinophils/100 WBC (Bld) 3.2 % Normal 0.9-7.0 [facility] Comment on above: Performed By: #### C BC ####[facility] Czilzrrmpu4[address] [place], [place] [address]Dr. Selenaneil Tripathi Erythrocyte distribution width (RBC) [Ratio] 13.0 % Normal 11.0-15.0 [facility] Comment on above: Performed By: #### C BC ####[facility] Hvnmlnjcmh[address] [place], [place] [address]Dr. Selenaneil Tripathi Hematocrit (Bld) [Volume fraction] 30.4 % Critically low 36.0-48.0 [facility] Comment on above: Performed By: #### C BC ####[facility] Ibszzlxiix[address] [place], [place] [address]Dr. Airam Tripathi Hemoglobin (Bld) [Mass/Vol] 9.6 g/dL Critically low 12.0-16.0 [facility] Comment on above: Performed By: #### C BC ####[facility] Whodacjlbt[address] [place], [place] [address]Dr. Airam Tripathi IG # 0.06 10e3/ul Critically high 0.00-0.03 [facility] Comment on above: Performed By: #### C BC ####[facility] Nbillvblkd0556 [place] [id number]. Airam Tripathi IG % 0.7 % Critically high 0.0-0.5 [facility] Comment on above: Performed By: #### C BC ####[facility] Wqfpyiqtwv8768 [place] [id number]. Airam Tripathi LYMPH # 1.9 103/ul Normal 1.2-3.8 [facility] Comment on above: Performed By: #### C BC ####[facility] Ijcaeethca0498 [place] [address]Dr. Airam Tripathi Lymphocytes/100 WBC (Bld) 20.6 % Normal 20.5-60.0 [facility] Comment on above: Performed By: #### C BC ####[facility] Mlumunnjyb2914 [place] [address]Dr. Airam Tripathi MANUAL DIFF REQ NO Normal [facility] Comment on above: Performed By: #### C BC ####[facility] Qpikfsnyll[address] [place], [place] [address]Dr. Airam Tripathi MCH (RBC) [Entitic mass] 30.1 pg Normal 26.7-34.0 [facility] Comment on above: Performed By: #### C BC ####[facility] Qpyadiuasf[address] [place], [place] [address]Dr. Airam Tripathi MCHC (RBC) [Mass/Vol] 31.6 g/dL Normal 29.9-35.2 [facility] Comment on above: Performed By: #### C BC ####[facility] Kgdavvfyyi[address] [place], [place] [address]Dr. Airam Tripathi MCV (RBC) [Entitic vol] 95.3 fL Normal 81.0-99.0 [facility] Comment on above: Performed By: #### C BC ####[facility] Roeecpoijq[address] [place], [place] [address]Dr. Airam Deuce MONO # 0.6 103/ul Normal 0.3-0.8 [facility] Comment on above: Performed By: #### C BC ####[facility] Hrnyoiypnr4374 [place] [id number]. Airam Tripathi Monocytes/100 WBC (Bld) 6.9 % Normal 1.7-12.0 [facility] Comment on above: Performed By: #### C BC ####[facility] Jqsgcgrwmq5409 [place] [id number]. Airam Tripathi NEUT # 6.1 103/ul Normal 1.4-6.5 [facility] Comment on above: Performed By: #### C BC ####[facility] Mlujdbrruo4605 [place] [phone]. Airam Tripathi Neutrophils/100 WBC (Bld) 68.2 % Normal 43.0-75.0 [facility] Comment on above: Performed By: #### C BC ####[facility] Mzizawonmc3655 [place] [address]Dr. Airam Tripathi Platelet mean volume (Bld) [Entitic vol] 9.7 fL Normal 9.5-13.5 [facility] Comment on above: Performed By: #### C BC ####[facility] Ltntvwxzmc7308 [place] [id number]. Airam Tripathi PLT 317 103/ul Normal 150-450 [facility] Comment on above: Performed By: #### C BC ####[facility] Huwpranrqc7919 [place] [phone]. Airam Tripathi RBC 3.19 106/ul Critically low 4.20-5.40 [facility] Comment on above: Performed By: #### C BC ####[facility] Uwnnbxrkfb356[address] [place], [place] [address]Dr. Airam Tripathi WBC 9.0 103/ul Normal 4.0-11.0 [facility] Comment on above: Performed By: #### C BC ####[facility] Dsrwbrtpox7332 [place] [address]Dr. Airam Tripathi PROF 14(COMP METB)on 022 Albumin [Mass/Vol] 3.4 g/dL Normal 3.4-5.0 [facility] Comment on above: Performed By: #### C MP ####[facility] Amsdnjonbp0907 [place] [id number]. Airam Deuce Albumin/Globulin [Mass ratio] 1.0 {ratio} Normal [facility] Comment on above: Performed By: #### C MP ####[facility] Wzbjnzeczs3010 [place] [phone]. Selenaneil Deuce ALP [Catalytic activity/Vol] 153 U/L Critically high 46-116 [facility] Comment on above: Performed By: #### C MP ####[facility] Lgmbgsheqd0951 [place] [address]Dr. Airam Deuce ALT [Catalytic activity/Vol] 21 U/L Normal 14-59 [facility] Comment on above: Performed By: #### C MP ####[facility] Mxjwunjlhr1717 [place] [address]Dr. Airam Tripathi Anion gap [Moles/Vol] 13.6 mmol/L Normal [facility] Comment on above: Performed By: #### C MP ####[facility] Dlvwjqjalj34[address] [place], [place] [address]Dr. Airam Deuce AST [Catalytic activity/Vol] 23 U/L Normal 15-37 [facility] Comment on above: Performed By: #### C MP ####[facility] Ujbxsvbcpz[address] [place], [place] [address]Dr. Airam Tripathi Bilirubin [Mass/Vol] 0.2 mg/dL Normal 0.2-1.0 [facility] Comment on above: Performed By: #### C MP ####[facility] Urbcuqquqr0850[address] [place], [place] [address]Dr. Airam Tripathi Calcium [Mass/Vol] 8.4 mg/dL Critically low 8.5-10.1 [facility] Comment on above: Performed By: #### C MP ####[facility] Aybldkbsee0587[address] [place], [place] [address]Dr. Airam Tripathi Chloride [Moles/Vol] 97 mmol/L Critically low 98-107 [facility] Comment on above: Performed By: #### C MP ####[facility] Mtuoamszjl9557 [place] [id number]. Airam Tripathi CO2 [Moles/Vol] 25.2 mmol/L Normal 21.0-32.0 [facility] Comment on above: Performed By: #### C MP ####[facility] Wzafcjcvog7984 [place] [id number]. Airam Tripathi Creatinine [Mass/Vol] 1.58 mg/dL Critically high 0.55-1.02 [facility] Comment on above: Performed By: #### C MP ####[facility] Raccobptbh8734 [place] [phone]. Airam Tripathi EGFR-AF LATVIAN 40 mL/min/1.73m2 Critically low >=60 [facility] Comment on above: Performed By: #### C MP ####[facility] Hgawvusxwc[address] [place], [place] [address]Dr. Airam Tripathi EGFR-NON AF LATVIAN 33 mL/min/1.73m2 Critically low >=60 [facility] Comment on above: Performed By: #### C MP ####[facility] Hqpkbujwig9227 [place] [id number]. Airam Tripathi Globulin (S) [Mass/Vol] 3.4 g/dL Normal [facility] Comment on above: Performed By: #### C MP ####[facility] Tlqolgqkql9754 [place] [phone]. Airam Tripathi Glucose [Mass/Vol] 74 mg/dL Normal 74-106 [facility] Comment on above: Performed By: #### C MP ####[facility] Zbgvhtjytk[address] [place], [place] [address]Dr. Airam Tripathi Potassium [Moles/Vol] 4.8 mmol/L Normal 3.5-5.1 [facility] Comment on above: Performed By: #### C MP ####[facility] Edptsxkzkx5801 [place] [id number]. Airam Tripathi Protein [Mass/Vol] 6.8 g/dL Normal 6.4-8.2 [facility] Comment on above: Performed By: #### C MP ####[facility] Xycdenkofo8831 [place] [phone]. Airam Tripathi Sodium [Moles/Vol] 131 mmol/L Critically low 136-145 [facility] Comment on above: Performed By: #### C MP ####[facility] Rockongvcj9386 [place] [phone]. Airam Tripathi Urea nitrogen [Mass/Vol] 31.0 mg/dL Critically high 7.0-18.0 [facility] Comment on above: Performed By: #### C MP ####[facility] Tjbctcuvid[address] [place], [place] [address]Dr. Airam Tripathi Urea nitrogen/Creatinine [Mass ratio] 19.6 mg/mg Normal [facility] Comment on above: Performed By: #### C MP ####[facility] Wpyhpsbexj[address] [place], [place] [address]Dr. Airam Tripathi OSMOLALITYon 05-19-2022 Osmolality [Osmolality] 281 mosm/kg Normal 275-295 [facility] Comment on above: Performed By: #### O SMO ####[facility] Xpyezaxhxy5540[address] [place], [place] [address]Dr. Airam Tripathi CBC AUTO DIFFon 05-17-2022 BASO # 0.1 103/ul Normal 0.0-0.1 [facility] Comment on above: Performed By: #### C BC ####[facility] Aqxtzmnikv9752 [place] [address]Dr. Airam Triapthi Basophils/100 WBC (Bld) 0.6 % Normal 0.2-2.0 [facility] Comment on above: Performed By: #### C BC ####[facility] Fkquelnsph2059 [place] [address]Dr. Airam Tripathi EO # 0.2 103/ul Normal 0.0-0.7 [facility] Comment on above: Performed By: #### C BC ####[facility] Zppmxzqtgq167[address] [place], [place] [address]Dr. Airam Tripathi Eosinophils/100 WBC (Bld) 1.9 % Normal 0.9-7.0 [facility] Comment on above: Performed By: #### C BC ####[facility] Neskfbjxqr20[address] [place], [place] [address]Dr. Airam Tripathi Erythrocyte distribution width (RBC) [Ratio] 12.9 % Normal 11.0-15.0 [facility] Comment on above: Performed By: #### C BC ####[facility] Spvsyytlsw2[address] [place], [place] [address]Dr. Airam Tripathi Hematocrit (Bld) [Volume fraction] 32.1 % Critically low 36.0-48.0 [facility] Comment on above: Performed By: #### C BC ####[facility] Tudikorrmq458[address] [place], [place] [address]Dr. Airam Tripathi Hemoglobin (Bld) [Mass/Vol] 9.9 g/dL Critically low 12.0-16.0 [facility] Comment on above: Performed By: #### C BC ####[facility] Mvvcpdecmk01[address] [place], [place] [address]Dr. Airam Tripathi IG # 0.05 10e3/ul Critically high 0.00-0.03 [facility] Comment on above: Performed By: #### C BC ####[facility] Blhkebjxqo846[address] [place], [place] [address]Dr. Airam Tripathi IG % 0.6 % Critically high 0.0-0.5 [facility] Comment on above: Performed By: #### C BC ####[facility] Xdwckdhcvp0[address] [place], [place] [address]Dr. Airam Tripathi LYMPH # 1.3 103/ul Normal 1.2-3.8 [facility] Comment on above: Performed By: #### C BC ####[facility] Ipdhdvdvpj[address] [place], [place] [address]Dr. Airam Tripathi Lymphocytes/100 WBC (Bld) 15.2 % Critically low 20.5-60.0 [facility] Comment on above: Performed By: #### C BC ####[facility] Pmifuvdnlv4[address] [place], [place] [address]Dr. Airam Tripathi MANUAL DIFF REQ NO Normal [facility] Comment on above: Performed By: #### C BC ####[facility] Fpsiboxzjk6952 [place] [id number]. Airam Deuce MCH (RBC) [Entitic mass] 30.0 pg Normal 26.7-34.0 [facility] Comment on above: Performed By: #### C BC ####[facility] Nilzwactly2517 [place] [id number]. Airam Deuce MCHC (RBC) [Mass/Vol] 30.8 g/dL Normal 29.9-35.2 [facility] Comment on above: Performed By: #### C BC ####[facility] Wwmkmyofpu4411 [place] [address]Dr. Airam Tripathi MCV (RBC) [Entitic vol] 97.3 fL Normal 81.0-99.0 [facility] Comment on above: Performed By: #### C BC ####[facility] Oznaabobdj44[address] [place], [place] [address]Dr. Airam Tripathi MONO # 0.5 103/ul Normal 0.3-0.8 [facility] Comment on above: Performed By: #### C BC ####[facility] Fbmksdqucg97[address] [place], [place] [address]Dr. Airam Tripathi Monocytes/100 WBC (Bld) 5.4 % Normal 1.7-12.0 [facility] Comment on above: Performed By: #### C BC ####[facility] Blkyznkpyv[address] [place], [place] [address]Dr. Airam Tripathi NEUT # 6.5 103/ul Normal 1.4-6.5 [facility] Comment on above: Performed By: #### C BC ####[facility] Qmtomkhdqu8224[address] [place], [place] [address]Dr. Airam Tripathi Neutrophils/100 WBC (Bld) 76.3 % Critically high 43.0-75.0 [facility] Comment on above: Performed By: #### C BC ####[facility] Tpmfcvngze[address] [place], [place] [address]Dr. Airam Tripathi Platelet mean volume (Bld) [Entitic vol] 10.1 fL Normal 9.5-13.5 [facility] Comment on above: Performed By: #### C BC ####[facility] Pkmlwrmwvj6720 [place] [address]Dr. Airam Tripathi PLT 284 103/ul Normal 150-450 [facility] Comment on above: Performed By: #### C BC ####[facility] Mjlwztfygm3437 [place] [id number]. Airam Tripathi RBC 3.30 106/ul Critically low 4.20-5.40 [facility] Comment on above: Performed By: #### C BC ####[facility] Ahebxpbnma3081 [place] [phone]. Airam Tripathi WBC 8.5 103/ul Normal 4.0-11.0 [facility] Comment on above: Performed By: #### C BC ####[facility] Eyqkcsixjh9712 [place] [address]Dr. Airam Tripathi PROF 14(COMP METB)on 022 Albumin [Mass/Vol] 3.1 g/dL Critically low 3.4-5.0 [facility] Comment on above: Performed By: #### C MP ####[facility] Sgegcsnewl[address] [place], [place] [address]Dr. Airam Tripathi Albumin/Globulin [Mass ratio] 0.9 {ratio} Normal [facility] Comment on above: Performed By: #### C MP ####[facility] Dlbxlixste2717 [place] [address]Dr. Airam Tripathi ALP [Catalytic activity/Vol] 162 U/L Critically high 46-116 [facility] Comment on above: Performed By: #### C MP ####[facility] Izqtdtyawb7926 [place] [id number]. Airam Tripathi ALT [Catalytic activity/Vol] 22 U/L Normal 14-59 [facility] Comment on above: Performed By: #### C MP ####[facility] Rpeazetaed6364 [place] [id number]. Airam Tripathi Anion gap [Moles/Vol] 9.4 mmol/L Normal [facility] Comment on above: Performed By: #### C MP ####[facility] Sqodwioxhx5263 [place] [address]Dr. Airam Tripathi AST [Catalytic activity/Vol] 26 U/L Normal 15-37 [facility] Comment on above: Performed By: #### C MP ####[facility] Qfdxdqochx8396 [place] [id number]. Airam Tripathi Bilirubin [Mass/Vol] 0.2 mg/dL Normal 0.2-1.0 [facility] Comment on above: Performed By: #### C MP ####[facility] Wxhujuxhol033[address] [place], [place] [address]Dr. Airam Tripathi Calcium [Mass/Vol] 8.2 mg/dL Critically low 8.5-10.1 [facility] Comment on above: Performed By: #### C MP ####[facility] Ldkrutihld[address] [place], [place] [address]Dr. Airam Tripathi Chloride [Moles/Vol] 103 mmol/L Normal 98-107 [facility] Comment on above: Performed By: #### C MP ####[facility] Mkhsgpgxeo[address] [place], [place] [address]Dr. Airam Tripathi CO2 [Moles/Vol] 24.8 mmol/L Normal 21.0-32.0 [facility] Comment on above: Performed By: #### C MP ####[facility] Ycmirvesmq4[address] [place], [place] [address]Dr. Airam Tripathi Creatinine [Mass/Vol] 1.19 mg/dL Critically high 0.55-1.02 [facility] Comment on above: Performed By: #### C MP ####[facility] [address]pcmlfebu[address] [place], [place] [address]Dr. Airam Tripathi EGFR-AF LATVIAN 56 mL/min/1.73m2 Critically low >=60 [facility] Comment on above: Performed By: #### C MP ####[facility] Wxfmntijeo[address] [place], [place] [address]Dr. Airam Decue EGFR-NON AF LATVIAN 46 mL/min/1.73m2 Critically low >=60 [facility] Comment on above: Performed By: #### C MP ####[facility] Fqdubvufzi8461 [place] [address]Dr. Airam Tripathi Globulin (S) [Mass/Vol] 3.6 g/dL Normal [facility] [facility] Comment on above: Performed By: #### C MP ####[facility] Urulmrkumv87[address] [place] [address]Dr. Airam Tripathi Glucose [Mass/Vol] 75 mg/dL Normal 74-106 [facility] Comment on above: Performed By: #### C MP ####[facility] Butebiyewl[address] [place], [place] [address]Dr. Airam Tripathi Potassium [Moles/Vol] 5.2 mmol/L Critically high 3.5-5.1 [facility] Comment on above: Performed By: #### C MP ####[facility] Qixvmttxrm18[address] [place], [place] [address]Dr. Airam Tripathi Protein [Mass/Vol] 6.7 g/dL Normal 6.4-8.2 [facility] Comment on above: Performed By: #### C MP ####[facility] Dmpzkxltsc4260[address] [place], [place] [address]Dr. Airam Tripathi Sodium [Moles/Vol] 132 mmol/L Critically low 136-145 [facility] Comment on above: Performed By: #### C MP ####[facility] Idzoueetqb036[address] [place], [place] [address]Dr. Airam Tripathi Urea nitrogen [Mass/Vol] 28.0 mg/dL Critically high 7.0-18.0 [facility] Comment on above: Performed By: #### C MP ####[facility] Rvgwdiwpnw034[address] [place], [place] [address]Dr. Airam Tripathi Urea nitrogen/Creatinine [Mass ratio] 23.5 mg/mg Normal [facility] Comment on above: Performed By: #### C MP ####[facility] Mmciienjla9764[address] [place], [place] [address]Dr. Airam Deuce OSMOLALITYon 05-16-2022 Osmolality [Osmolality] 281 mosm/kg Normal 275-295 [facility] Comment on above: Performed By: #### O SMO ####[facility] Iljcjhmhdi04[address] [place] [id number]. Airam Tripathi CBC AUTO DIFFon 05-13-2022 BASO # 0.1 103/ul Normal 0.0-0.1 [facility] Comment on above: Performed By: #### C BC ####[facility] Nvqjgfhwyp6229 [place] [id number]. Airam Deuce Basophils/100 WBC (Bld) 0.5 % Normal 0.2-2.0 [facility] Comment on above: Performed By: #### C BC ####[facility] Fsxciudvkz[address] [place], [place] [address]Dr. Airam Tripathi EO # 0.2 103/ul Normal 0.0-0.7 [facility] Comment on above: Performed By: #### C BC ####[facility] Oglzlekbkv[address] [place], [place] [address]Dr. Selenaneil Tripathi Eosinophils/100 WBC (Bld) 2.1 % Normal 0.9-7.0 [facility] Comment on above: Performed By: #### C BC ####[facility] Esjayohsql484[address] [place], [place] [address]Dr. Airam Tripathi Erythrocyte distribution width (RBC) [Ratio] 12.9 % Normal 11.0-15.0 [facility] Comment on above: Performed By: #### C BC ####[facility] Rizxrtxknk4916[address] [place], [place] [address]Dr. Airam Tripathi Hematocrit (Bld) [Volume fraction] 31.9 % Critically low 36.0-48.0 [facility] Comment on above: Performed By: #### C BC ####[facility] Rggnblcwzm2960[address] [place], [place] [address]Dr. Airam Tripathi Hemoglobin (Bld) [Mass/Vol] 9.7 g/dL Critically low 12.0-16.0 [facility] Comment on above: Performed By: #### C BC ####[facility] Stewunukdb6[address] [place], [place] [address]Dr. Airam Tripathi IG # 0.06 10e3/ul Critically high 0.00-0.03 [facility] Comment on above: Performed By: #### C BC ####[facility] Ipmlbajgsv6275 [place] [address]DrKianna Selenaneil Tripathi IG % 0.7 % Critically high 0.0-0.5 [facility] Comment on above: Performed By: #### C BC ####[facility] Lfiinlyidm9366 [place] [address]DrKianna Airam Deuce LYMPH # 1.9 103/ul Normal 1.2-3.8 [facility] Comment on above: Performed By: #### C BC ####[facility] Ymdxxrmmes65[address] [place], [place] [address]DrKianna Selenaneil Tripathi Lymphocytes/100 WBC (Bld) 21.1 % Normal 20.5-60.0 [facility] Comment on above: Performed By: #### C BC ####[facility] Wslvhgtmsx5237[address] [place], [place] [address]DrKianna Selenaneil Tripathi MANUAL DIFF REQ NO Normal [facility] Comment on above: Performed By: #### C BC ####[facility] Idjymhukpu649[address] [place], [place] [address]Dr. Airam Deuce MCH (RBC) [Entitic mass] 29.7 pg Normal 26.7-34.0 [facility] Comment on above: Performed By: #### C BC ####[facility] Paxiymcmey3[address] [place], [place] [address]Dr. Airam Deuce MCHC (RBC) [Mass/Vol] 30.4 g/dL Normal 29.9-35.2 [facility] Comment on above: Performed By: #### C BC ####[facility] Rsyaksphgv4[address] [place], [place] [address]DrKianna Selenaneil Tripathi MCV (RBC) [Entitic vol] 97.6 fL Normal 81.0-99.0 [facility] Comment on above: Performed By: #### C BC ####[facility] Fmoalprvhf[address] [place], [place] [address]DrKianna Tripathi MONO # 0.6 103/ul Normal 0.3-0.8 [facility] Comment on above: Performed By: #### C BC ####[facility] Vesfkimcjh7[address] [place] [id number]. Airam Tripathi Monocytes/100 WBC (Bld) 6.8 % Normal 1.7-12.0 [facility] Comment on above: Performed By: #### C BC ####[facility] Ndxyhynkzn8484 [place] [id number]. Airam Tripathi NEUT # 6.3 103/ul Normal 1.4-6.5 [facility] Comment on above: Performed By: #### C BC ####[facility] Euecnoufrn0[address] [place] [address]Dr. Airam rTipathi Neutrophils/100 WBC (Bld) 68.8 % Normal 43.0-75.0 [facility] Comment on above: Performed By: #### C BC ####[facility] Cnnvxlmewa6874 [place] [address]Dr. Airam Tripathi Platelet mean volume (Bld) [Entitic vol] 9.6 fL Normal 9.5-13.5 [facility] Comment on above: Performed By: #### C BC ####[facility] Lgbxufnvzr3674 [place] [address]Dr. Airam Tripathi PLT 295 103/ul Normal 150-450 [facility] Comment on above: Performed By: #### C BC ####[facility] Biseghcqql7021 [place] [address]Dr. Airam Tripathi RBC 3.27 106/ul Critically low 4.20-5.40 [facility] Comment on above: Performed By: #### C BC ####[facility] Hxeffhkecf7330 [place] [id number]. Airam Tripathi WBC 9.1 103/ul Normal 4.0-11.0 [facility] Comment on above: Performed By: #### C BC ####[facility] Otnrmhqrvl1212 [place] [address]DrKianna Selenaneil Tripathi PROF 14(COMP METB)on 05-13- 022 Albumin [Mass/Vol] 3.3 g/dL Critically low 3.4-5.0 [facility] Comment on above: Performed By: #### C MP ####[facility] Ydiswkcomy8461 [place] [address]Dr. Airam Tripathi Albumin/Globulin [Mass ratio] 1.0 {ratio} Normal [facility] Comment on above: Performed By: #### C MP ####[facility] Ndffyexhqx9902 [place] [address]Dr. Airam Tripathi ALP [Catalytic activity/Vol] 152 U/L Critically high 46-116 [facility] Comment on above: Performed By: #### C MP ####[facility] Grqjitlbng[address] [place], [place] [address]Dr. Airam Tripathi ALT [Catalytic activity/Vol] 23 U/L Normal 14-59 [facility] Comment on above: Performed By: #### C MP ####[facility] Giivhuvgrc399[address] [place], [place] [address]Dr. Airam Tripathi Anion gap [Moles/Vol] 12.0 mmol/L Normal [facility] Comment on above: Performed By: #### C MP ####[facility] Ltzlfiwoju38[address] [place], [place] [address]Dr. Airam Tripathi AST [Catalytic activity/Vol] 25 U/L Normal 15-37 [facility] Comment on above: Performed By: #### C MP ####[facility] Hcmlbssvdk35[address] [place], [place] [address]Dr. Airam Tripathi Bilirubin [Mass/Vol] 0.2 mg/dL Normal 0.2-1.0 [facility] Comment on above: Performed By: #### C MP ####[facility] Sdhaxhegln90[address] [place], [place] [address]Dr. Airam Tripathi Calcium [Mass/Vol] 8.2 mg/dL Critically low 8.5-10.1 [facility] Comment on above: Performed By: #### C MP ####[facility] Dmywnqlqut39[address] [place], [place] [address]Dr. Airam Tripathi Chloride [Moles/Vol] 100 mmol/L Normal 98-107 [facility] Comment on above: Performed By: #### C MP ####[facility] Zsbsspficm3620 [place] [id number]. Airam Tripathi CO2 [Moles/Vol] 24.8 mmol/L Normal 21.0-32.0 [facility] Comment on above: Performed By: #### C MP ####[facility] Vathefgbhe3297 [place] [id number]. Airam Tripathi Creatinine [Mass/Vol] 1.46 mg/dL Critically high 0.55-1.02 [facility] Comment on above: Performed By: #### C MP ####[facility] Njvnczpqlw4073 [place] [id number]. Airam Tripathi EGFR-AF LATVIAN 44 mL/min/1.73m2 Critically low >=60 [facility] Comment on above: Performed By: #### C MP ####[facility] Mafglijdbv4446 [place] [address]Dr. Airam Tripathi EGFR-NON AF LATVIAN 37 mL/min/1.73m2 Critically low >=60 [facility] Comment on above: Performed By: #### C MP ####[facility] Mvgnlhahki2982 [place] [address]Dr. Airam Tripathi Globulin (S) [Mass/Vol] 3.3 g/dL Normal [facility] Comment on above: Performed By: #### C MP ####[facility] Sppfevqvxs4513 [place] [address]Dr. Airam Tripathi Glucose [Mass/Vol] 86 mg/dL Normal 74-106 [facility] Comment on above: Performed By: #### C MP ####[facility] Ixdhrsbpsb7915 [place] [id number]. Airam Tripathi Potassium [Moles/Vol] 4.8 mmol/L Normal 3.5-5.1 [facility] Comment on above: Performed By: #### C MP ####[facility] Ptscvnzfmm9058 [place] [address]Dr. Airam Tripathi Protein [Mass/Vol] 6.6 g/dL Normal 6.4-8.2 [facility] Comment on above: Performed By: #### C MP ####[facility] Bftbzmijlv5065 [place] [address]Dr. Airam Deuce Sodium [Moles/Vol] 132 mmol/L Critically low 136-145 Th [facility] Comment on above: Performed By: #### C MP ####[facility] Djbrisgiws9[address] [place], [place] [address]Dr. Airam Deuce Urea nitrogen [Mass/Vol] 34.0 mg/dL Critically high 7.0-18.0 [facility] Comment on above: Performed By: #### C MP ####[facility] Ulhwaxodke17[address] [place], [place] [address]Dr. Airam Deuce Urea nitrogen/Creatinine [Mass ratio] 23.3 mg/mg Normal [facility] Comment on above: Performed By: #### C MP ####[facility] Kcfwosilvk[address] [place], [place] [address]Dr. Airam Deuce OSMOLALITYon 05-06-2022 Osmolality [Osmolality] 284 mosm/kg Normal 275-295 [facility] Comment on above: Performed By: #### O SMO ####[facility] Bpmqumwzls[address] [place], [place] [address]Dr. Airam Deuce XR LSPINE MIN 4 VIEWSon XR LSPINE MIN 4 VIEWS Normal [facility] CBC AUTO DIFFon 05-03-2022 BASO # 0.1 103/ul Normal 0.0-0.1 [facility] Comment on above: Performed By: #### C BC ####[facility] Laygtikigh9711[address] [place], [place] [address]Dr. Airam Tripathi Basophils/100 WBC (Bld) 0.6 % Normal 0.2-2.0 [facility] Comment on above: Performed By: #### C BC ####[facility] Xtojwzgbnh1716[address] [place], [place] [address]Dr. Airam Tripathi EO # 0.3 103/ul Normal 0.0-0.7 [facility] Comment on above: Performed By: #### C BC ####[facility] Mqpgumvpyk[address] [place], [place] [id number]. Airam Tripathi Eosinophils/100 WBC (Bld) 4.2 % Normal 0.9-7.0 [facility] Comment on above: Performed By: #### C BC ####[facility] Oufuvfbywk4923 [place] [address]Dr. Airam Tripathi Erythrocyte distribution width (RBC) [Ratio] 13.4 % Normal 11.0-15.0 [facility] Comment on above: Performed By: #### C BC ####[facility] Wlayqczbbw754[address] [place], [place] [address]Dr. Airam Tripathi Hematocrit (Bld) [Volume fraction] 30.7 % Critically low 36.0-48.0 [facility] Comment on above: Performed By: #### C BC ####[facility] Hyjfeqylma55[address] [place], [place] [address]Dr. Airam Tripathi Hemoglobin (Bld) [Mass/Vol] 9.6 g/dL Critically low 12.0-16.0 [facility] Comment on above: Performed By: #### C BC ####[facility] Gsrtkxynma9620[address] [place], [place] [address]Dr. Airam Tripathi IG # 0.05 10e3/ul Critically high 0.00-0.03 [facility] Comment on above: Performed By: #### C BC ####[facility] Labfnjxkbj3670[address] [place], [place] [address]Dr. Airam Tripathi IG % 0.6 % Critically high 0.0-0.5 [facility] Comment on above: Performed By: #### C BC ####[facility] Ywahqoekeg8339[address] [place], [place] [address]Dr. Airam Tripathi LYMPH # 1.9 103/ul Normal 1.2-3.8 [facility] Comment on above: Performed By: #### C BC ####[facility] Dcpkbfavxz907[address] [place], [place] [address]Dr. Airam Tripathi Lymphocytes/100 WBC (Bld) 23.5 % Normal 20.5-60.0 [facility] Comment on above: Performed By: #### C BC ####[facility] Cfgvhrzqwu4981 [place] [address]Dr. Airam Tripathi MANUAL DIFF REQ NO Normal [facility] Comment on above: Performed By: #### C BC ####[facility] Dojvhpbtpn8552 [place] [address]Dr. Airam Tripathi MCH (RBC) [Entitic mass] 30.8 pg Normal 26.7-34.0 [facility] Comment on above: Performed By: #### C BC ####[facility] Aphuwusmoz0599 [place] [address]Dr. Airam Tripathi MCHC (RBC) [Mass/Vol] 31.3 g/dL Normal 29.9-35.2 [facility] Comment on above: Performed By: #### C BC ####[facility] Jtlbtnmlro9100 [place] [address]Dr. Selenaneil Tripathi MCV (RBC) [Entitic vol] 98.4 fL Normal 81.0-99.0 [facility] Comment on above: Performed By: #### C BC ####[facility] Hstoqlztie39[address] [place], [place] [address]Dr. Airam Deuce MONO # 0.6 103/ul Normal 0.3-0.8 [facility] Comment on above: Performed By: #### C BC ####[facility] Tvinfingaa2223[address] [place], [place] [address]Dr. Selenaneil Tripathi Monocytes/100 WBC (Bld) 7.4 % Normal 1.7-12.0 [facility] Comment on above: Performed By: #### C BC ####[facility] Opyazxmduv0160[address] [place], [place] [address]Dr. Selenaneil Deuce NEUT # 5.0 103/ul Normal 1.4-6.5 [facility] Comment on above: Performed By: #### C BC ####[facility] Pjktahrful225[address] [place], [place] [address]Dr. Airam Tripathi Neutrophils/100 WBC (Bld) 63.7 % Normal 43.0-75.0 [facility] Comment on above: Performed By: #### C BC ####[facility] Jwagqsyeux9736 [place] [address]Dr. Airam Deuce Platelet mean volume (Bld) [Entitic vol] 9.5 fL Normal 9.5-13.5 [facility] Comment on above: Performed By: #### C BC ####[facility] Ekrddjoivs9991 [place] [address]Dr. Airam Tripathi PLT 280 103/ul Normal 150-450 [facility] Comment on above: Performed By: #### C BC ####[facility] Fphircwuya3452 [place] [address]Dr. Airam Tripathi RBC 3.12 106/ul Critically low 4.20-5.40 [facility] Comment on above: Performed By: #### C BC ####[facility] Hduglhvkmn9[address] [place], [place] [address]Dr. Airam Tripathi WBC 7.9 103/ul Normal 4.0-11.0 [facility] Comment on above: Performed By: #### C BC ####[facility] Rvxtzghyka[address] [place], [place] [address]Dr. Airam Tripathi PROF 14(COMP METB)on 022 Albumin [Mass/Vol] 3.1 g/dL Critically low 3.4-5.0 [facility] Comment on above: Performed By: #### C MP ####[facility] Mvlbetvyfe1884[address] [place], [place] [address]Dr. Airam Tripathi Albumin/Globulin [Mass ratio] 0.9 {ratio} Normal [facility] Comment on above: Performed By: #### C MP ####[facility] Owhfbecqbt[address] [place], [place] [address]Dr. Airam Tripathi ALP [Catalytic activity/Vol] 140 U/L Critically high 46-116 [facility] Comment on above: Performed By: #### C MP ####[facility] Ecbidksugj9245[address] [place], [place] [address]Dr. Airam Tripathi ALT [Catalytic activity/Vol] 24 U/L Normal 14-59 [facility] Comment on above: Performed By: #### C MP ####[facility] Bobgbvleld0413[address] [place], [place] [address]Dr. Airam Tripathi Anion gap [Moles/Vol] 11.2 mmol/L Normal [facility] Comment on above: Performed By: #### C MP ####[facility] Xswntyrkcy766[address] [place], [place] [address]Dr. Airam Tripathi AST [Catalytic activity/Vol] 26 U/L Normal 15-37 [facility] Comment on above: Performed By: #### C MP ####[facility] Ibpdvgurnw6513[address] [place], [place] [address]Dr. Airam Tripathi Bilirubin [Mass/Vol] 0.2 mg/dL Normal 0.2-1.0 [facility] Comment on above: Performed By: #### C MP ####[facility] Yhgmhrixjl60264[address] [place], [place] [address]Dr. Airam Tripathi Calcium [Mass/Vol] 8.3 mg/dL Critically low 8.5-10.1 [facility] Comment on above: Performed By: #### C MP ####[facility] Zkfpqberno95[address] [place], [place] [address]Dr. Airam Tripathi Chloride [Moles/Vol] 101 mmol/L Normal 98-107 [facility] Comment on above: Performed By: #### C MP ####[facility] Cdqytuykbg[address] [place], [place] [address]Dr. Airam Tripathi CO2 [Moles/Vol] 25.5 mmol/L Normal 21.0-32.0 [facility] Comment on above: Performed By: #### C MP ####[facility] Suatumbkse[address] [place], [place] [address]Dr. Airam Tripathi Creatinine [Mass/Vol] 1.43 mg/dL Critically high 0.55-1.02 [facility] Comment on above: Performed By: #### C MP ####[facility] Olgadhjifj47[address] [place], [place] [address]Dr. Airam Tripathi EGFR-AF LATVIAN 45 mL/min/1.73m2 Critically low >=60 [facility] Comment on above: Performed By: #### C MP ####[facility] Wohemngucf10[address] [place] [address]Dr. Airam Tripathi EGFR-NON AF LATVIAN 37 mL/min/1.73m2 Critically low >=60 [facility] Comment on above: Performed By: #### C MP ####[facility] Kdqedusnws3089 [place] [address]Dr. Airam Tripathi Globulin (S) [Mass/Vol] 3.3 g/dL Normal [facility] Comment on above: Performed By: #### C MP ####[facility] Btmkuwrzqa458[address] [place], [place] [address]Dr. Airam Tripathi Glucose [Mass/Vol] 74 mg/dL Normal 74-106 [facility] Comment on above: Performed By: #### C MP ####[facility] Ohsfeubono5199[address] [place], [place] [address]Dr. Airam Tripathi Potassium [Moles/Vol] 4.7 mmol/L Normal 3.5-5.1 [facility] Comment on above: Performed By: #### C MP ####[facility] Bdwsjudiwt[address] [place], [place] [address]Dr. Airam Tripathi Protein [Mass/Vol] 6.4 g/dL Normal 6.4-8.2 [facility] Comment on above: Performed By: #### C MP ####[facility] Xrguiglsjx[address] [place], [place] [address]Dr. Airam Tripathi Sodium [Moles/Vol] 133 mmol/L Critically low 136-145 [facility] Comment on above: Performed By: #### C MP ####[facility] Hkortdxjux3[address] [place], [place] [address]Dr. Airam Tripathi Urea nitrogen [Mass/Vol] 38.0 mg/dL Critically high 7.0-18.0 [facility] Comment on above: Performed By: #### C MP ####[facility] Xktonjkybz9[address] [place], [place] [address]Dr. Airam Tripathi Urea nitrogen/Creatinine [Mass ratio] 26.6 mg/mg Normal [facility] Comment on above: Performed By: #### C MP ####[facility] Adursstupe54[address] [place], [place] [address]Dr. Airam Tripathi OSMOLALITYon 04-29-2022 Osmolality [Osmolality] 292 mosm/kg Normal 275-295 [facility] Comment on above: Performed By: #### O SMO ####[facility] Cpepwfangv4[address] [place] [address]Dr. Airam Tripathi CBC AUTO DIFFon 04-28-2022 BASO # 0.0 103/ul Normal 0.0-0.1 [facility] Comment on above: Performed By: #### C BC ####[facility] Mbizoxzlrx2511 [place] [address]Dr. Airam Tripathi Basophils/100 WBC (Bld) 0.5 % Normal 0.2-2.0 [facility] Comment on above: Performed By: #### C BC ####[facility] Mavmcktnlx5656 [place] [address]Dr. Airam Tripathi EO # 0.2 103/ul Normal 0.0-0.7 [facility] Comment on above: Performed By: #### C BC ####[facility] Ucuwitqipl[address] [place], [place] [address]Dr. Airam Tripathi Eosinophils/100 WBC (Bld) 3.4 % Normal 0.9-7.0 [facility] Comment on above: Performed By: #### C BC ####[facility] Edzdrygcdk8286 [place] [address]Dr. Airam Tripathi Erythrocyte distribution width (RBC) [Ratio] 13.4 % Normal 11.0-15.0 [facility] Comment on above: Performed By: #### C BC ####[facility] Zybfctcufx0378 [place] [address]Dr. Airam Tripathi Hematocrit (Bld) [Volume fraction] 31.6 % Critically low 36.0-48.0 [facility] Comment on above: Performed By: #### C BC ####[facility] Hfyeadrbmh5840 [place] [address]Dr. Airam Tripathi Hemoglobin (Bld) [Mass/Vol] 9.8 g/dL Critically low 12.0-16.0 [facility] Comment on above: Performed By: #### C BC ####[facility] Begndtxndr7448 [place] [id number]. Airam Tripathi IG # 0.02 10e3/ul Normal 0.00-0.03 [facility] Comment on above: Performed By: #### C BC ####[facility] Cxjekbgdkt3640 [place] [id number]. Airam Tripathi IG % 0.3 % Normal 0.0-0.5 [facility] Comment on above: Performed By: #### C BC ####[facility] Vxbagsjuyl3546 [place] [address]Dr. Airam Tripathi LYMPH # 1.3 103/ul Normal 1.2-3.8 [facility] Comment on above: Performed By: #### C BC ####[facility] Tjpjtthyat36[address] [place] [address]Dr. Selenaneil Tripathi Lymphocytes/100 WBC (Bld) 21.7 % Normal 20.5-60.0 [facility] Comment on above: Performed By: #### C BC ####[facility] Jguskkverb2099 [place] [address]Dr. Airam Tripathi MANUAL DIFF REQ NO Normal [facility] Comment on above: Performed By: #### C BC ####[facility] Gadzvfycgc2357 [place] [address]Dr. Airam Tripathi MCH (RBC) [Entitic mass] 30.7 pg Normal 26.7-34.0 [facility] Comment on above: Performed By: #### C BC ####[facility] Anhsuxqxoa[address] [place], [place] [address]Dr. Airam Tripathi MCHC (RBC) [Mass/Vol] 31.0 g/dL Normal 29.9-35.2 [facility] Comment on above: Performed By: #### C BC ####[facility] Trvavralir7[address] [place] [address]Dr. Airam Tripathi MCV (RBC) [Entitic vol] 99.1 fL Critically high 81.0-99.0 [facility] Comment on above: Performed By: #### C BC ####[facility] Qeasdtitac5329 [place] [id number]. Airam Tripathi MONO # 0.3 103/ul Normal 0.3-0.8 [facility] Comment on above: Performed By: #### C BC ####[facility] Bjfrubnwqr3448 [place] [id number]. Airam Tripathi Monocytes/100 WBC (Bld) 5.2 % Normal 1.7-12.0 [facility] Comment on above: Performed By: #### C BC ####[facility] Emvsucrvdj4278 [place] [id number]. Airam Tripathi NEUT # 4.1 103/ul Normal 1.4-6.5 [facility] Comment on above: Performed By: #### C BC ####[facility] Cqzjpzpgzg7230 [place] [id number]. Airam Tripathi Neutrophils/100 WBC (Bld) 68.9 % Normal 43.0-75.0 [facility] Comment on above: Performed By: #### C BC ####[facility] [place] [address]ifpik[address] [place] [id number]. Airam Tripathi Platelet mean volume (Bld) [Entitic vol] 9.8 fL Normal 9.5-13.5 [facility] Comment on above: Performed By: #### C BC ####[facility] Vhtgcjvzxn1419 [place] [id number]. Airam Tripathi PLT 329 103/ul Normal 150-450 [facility] [place] Comment on above: Performed By: #### C BC ####[facility] Rnxlbbqokb8159 [place] [id number]. Airam Tripathi RBC 3.19 106/ul Critically low 4.20-5.40 [facility] [place] Comment on above: Performed By: #### C BC ####[facility] Tqqlhaiqol6907 [place] [id number]. Airam Tripathi WBC 5.9 103/ul Normal 4.0-11.0 [facility] [place] Comment on above: Performed By: #### C BC ####[facility] [address]mpjezsp[address] [place], [place] [address]Dr. Airam Tripathi PROF 14(COMP METB)on 022 Albumin [Mass/Vol] 2.9 g/dL Critically low 3.4-5.0 [facility] Comment on above: Performed By: #### C MP ####[facility] Lzowuylqql[address] [place], [place] [address]Dr. Airam Tripathi Albumin/Globulin [Mass ratio] 0.9 {ratio} Normal [facility] Comment on above: Performed By: #### C MP ####[facility] [place] Jqrjvhcdgv[address] [place], [place] [address]Dr. Airam Tripathi ALP [Catalytic activity/Vol] 127 U/L Critically high 46-116 [facility] Comment on above: Performed By: #### C MP ####[facility] [place] Ecvzfotmir[address] [place], [place] [address]Dr. Airam Tripathi ALT [Catalytic activity/Vol] 22 U/L Normal 14-59 [facility] Comment on above: Performed By: #### C MP ####[facility] [place] Zodjkaoomk[address] [place], [place] [address]Dr. Airam Tripathi Anion gap [Moles/Vol] 6.7 mmol/L Normal [facility] Comment on above: Performed By: #### C MP ####[facility] [place] Utibdzchzf[address] [place], [place] [address]Dr. Airam Tripathi AST [Catalytic activity/Vol] 24 U/L Normal 15-37 [facility] Comment on above: Performed By: #### C MP ####[facility] [place] Ukpvbalmry[address] [place], [place] [address]Dr. Airam Tripathi Bilirubin [Mass/Vol] 0.2 mg/dL Normal 0.2-1.0 [facility] Comment on above: Performed By: #### C MP ####[facility] Tvahuqjsxb17[address] [place], [place] [address]Dr. Airam Tripathi Calcium [Mass/Vol] 8.2 mg/dL Critically low 8.5-10.1 [facility] Comment on above: Performed By: #### C MP ####[facility] Aeblcofqjz1708 [place] [phone]. Airam Tripathi Chloride [Moles/Vol] 105 mmol/L Normal 98-107 [facility] [place] Comment on above: Performed By: #### C MP ####[facility] Juzjcrwwoi29[address] [place] [address]Dr. Airam Tripathi CO2 [Moles/Vol] 28.2 mmol/L Normal 21.0-32.0 [facility] [place] Comment on above: Performed By: #### C MP ####[facility] Dkrapqtten1505 [place] [address]Dr. Airam Tripathi Creatinine [Mass/Vol] 1.22 mg/dL Critically high 0.55-1.02 [facility] [place] Comment on above: Performed By: #### C MP ####[facility] Nvylcfewqf2055 [place] [address]Dr. Airam Tripathi EGFR-AF LATVIAN 54 mL/min/1.73m2 Critically low >=60 [facility] Comment on above: Performed By: #### C MP ####[facility] Pazyhbsyec[address] [place], [place] [address]Dr. Airam Tripathi EGFR-NON AF LATVIAN 45 mL/min/1.73m2 Critically low >=60 [facility] [place] Comment on above: Performed By: #### C MP ####[facility] Ryicorexku4018 [place] [address]Dr. Airam Tripathi Globulin (S) [Mass/Vol] 3.2 g/dL Normal [facility] [place] Comment on above: Performed By: #### C MP ####[facility] Csfukthrol0551 [place] [address]Dr. Airam Tripathi Glucose [Mass/Vol] 77 mg/dL Normal 74-106 [facility] Comment on above: Performed By: #### C MP ####[facility] Rzpwuknolq8309 [place] [address]Dr. Airam Tripathi Potassium [Moles/Vol] 4.9 mmol/L Normal 3.5-5.1 [facility] Comment on above: Performed By: #### C MP ####[facility] Mbimccfskd17[address] [place], [place] [address]Dr. Airam Tripathi Protein [Mass/Vol] 6.1 g/dL Critically low 6.4-8.2 [facility] Comment on above: Performed By: #### C MP ####[facility] [place] Jowwrpzopb134[address] [place], [place] [address]Dr. Airam Tripathi Sodium [Moles/Vol] 135 mmol/L Critically low 136-145 [facility] Comment on above: Performed By: #### C MP ####[facility] Chjmshljbt[address] [place], [place] [address]Dr. Airam Tripathi Urea nitrogen [Mass/Vol] 30.0 mg/dL Critically high 7.0-18.0 [facility] Comment on above: Performed By: #### C MP ####[facility] Msapfjjali[address] [place], [place] [address]Dr. Airam Tripathi Urea nitrogen/Creatinine [Mass ratio] 24.6 mg/mg Normal [facility] Comment on above: Performed By: #### C MP ####[facility] Whfvcchwcd16[address] [place], [place] [address]Dr. Airam Tripathi OSMOLALITYon 04-23-2022 Osmolality [Osmolality] 289 mosm/kg Normal 275-295 [facility] Comment on above: Performed By: #### O SMO ####[facility] [place] X[address]fjddmtqg72[address] [place], [place] [address]Dr. Airam Tripathi CBC AUTO DIFFon 04-20-2022 BASO # 0.0 103/ul Normal 0.0-0.1 [facility] Comment on above: Performed By: #### C BC ####[facility] Ixxvisxlpm378[address] [place], [place] [address]Dr. Airam Deuce Basophils/100 WBC (Bld) 0.4 % Normal 0.2-2.0 [facility] [place] Comment on above: Performed By: #### C BC ####[facility] Pwttpfkotn[address] [place], [place] [address]Dr. Airam Deuce EO # 0.2 103/ul Normal 0.0-0.7 [facility] Comment on above: Performed By: #### C BC ####[facility] Ftxcufkido4155 [place] [phone]. Airam Tripathi Eosinophils/100 WBC (Bld) 3.1 % Normal 0.9-7.0 [facility] Comment on above: Performed By: #### C BC ####[facility] Dytaytesah7127 [place] [phone]. Airam Tripathi Erythrocyte distribution width (RBC) [Ratio] 13.8 % Normal 11.0-15.0 [facility] [place] Comment on above: Performed By: #### C BC ####[facility] Doffbqkujl9381 [place] [phone]. Airam Tripathi Hematocrit (Bld) [Volume fraction] 29.5 % Critically low 36.0-48.0 [facility] [place] Comment on above: Performed By: #### C BC ####[facility] Tmqoqlmpto8[address] [place], [place] [address]Dr. Airam Tripathi Hemoglobin (Bld) [Mass/Vol] 9.2 g/dL Critically low 12.0-16.0 [facility] [place] Comment on above: Performed By: #### C BC ####[facility] Aoojyacitb[address] [place], [place] [address]Dr. Airam Tripathi IG # 0.02 10e3/ul Normal 0.00-0.03 [facility] Comment on above: Performed By: #### C BC ####[facility] Zeuvulqgco[address] [place], [place] [address]Dr. Airam Tripathi IG % 0.4 % Normal 0.0-0.5 [facility] Comment on above: Performed By: #### C BC ####[facility] Kxhbscmnis[address] [place], [place] [address]Dr. Airam Tripathi LYMPH # 0.8 103/ul Critically low 1.2-3.8 [facility] Comment on above: Performed By: #### C BC ####[facility] Ycwssiacgb3[address] [place], [place] [address]Dr. Airam Tripathi Lymphocytes/100 WBC (Bld) 14.0 % Critically low 20.5-60.0 [facility] Comment on above: Performed By: #### C BC ####[facility] Qtzsqjvjws2970 [place] [address]Dr. Airam Tripathi MANUAL DIFF REQ NO Normal [facility] Comment on above: Performed By: #### C BC ####[facility] Medndczsfg0537 [place] [phone]. Airam Tripathi MCH (RBC) [Entitic mass] 30.4 pg Normal 26.7-34.0 [facility] Comment on above: Performed By: #### C BC ####[facility] Pziithrbop[address] [place], [place] [address]Dr. Airam Tripathi MCHC (RBC) [Mass/Vol] 31.2 g/dL Normal 29.9-35.2 [facility] Comment on above: Performed By: #### C BC ####[facility] Dqmepgcxqz2664[address] [place], [place] [address]Dr. Airam Tripathi MCV (RBC) [Entitic vol] 97.4 fL Normal 81.0-99.0 [facility] Comment on above: Performed By: #### C BC ####[facility] Basamcflmy[address] [place], [place] [address]Dr. Airam Tripathi MONO # 0.3 103/ul Normal 0.3-0.8 [facility] Comment on above: Performed By: #### C BC ####[facility] Wwyfbtitfq[address] [place], [place] [address]Dr. Selneaneil Tripathi Monocytes/100 WBC (Bld) 5.6 % Normal 1.7-12.0 [facility] [place] Comment on above: Performed By: #### C BC ####[facility] Aejjkssejq9[address] [place], [place] [address]Dr. Airam Tripathi NEUT # 4.2 103/ul Normal 1.4-6.5 [facility] Comment on above: Performed By: #### C BC ####[facility] Uxmbxoucza[address] [place], [place] [address]Dr. Airam Tripathi Neutrophils/100 WBC (Bld) 76.5 % Critically high 43.0-75.0 [facility] Comment on above: Performed By: #### C BC ####[facility] Szowujetdj1965 [place] [address]Dr. Airam Tripathi Platelet mean volume (Bld) [Entitic vol] 9.4 fL Critically low 9.5-13.5 [facility] Comment on above: Performed By: #### C BC ####[facility] Moicpotrcp3482 [place] [address]Dr. Airam Tripathi PLT 250 103/ul Normal 150-450 [facility] Comment on above: Performed By: #### C BC ####[facility] Ecnnfofzwh[address] [place], [place] [address]Dr. Airam Tripathi RBC 3.03 106/ul Critically low 4.20-5.40 [facility] Comment on above: Performed By: #### C BC ####[facility] Avgykzvjwk[address] [place], [place] [address]Dr. Airam Tripathi WBC 5.5 103/ul Normal 4.0-11.0 [facility] Comment on above: Performed By: #### C BC ####[facility] Pdtaougnmo[address] [place], [place] [address]Dr. Airam Tripathi PROF 14(COMP METB)on 022 Albumin [Mass/Vol] 2.7 g/dL Critically low 3.4-5.0 [facility] Comment on above: Performed By: #### C MP ####[facility] Jhnjcneang[address] [place], [place] [address]Dr. Airam Tripathi Albumin/Globulin [Mass ratio] 0.9 {ratio} Normal [facility] Comment on above: Performed By: #### C MP ####[facility] Nfbrclnppy5073 [place] [address]Dr. Airam Tripathi ALP [Catalytic activity/Vol] 113 U/L Normal 46-116 [facility] Comment on above: Performed By: #### C MP ####[facility] Baxgfnitsh3775 [place] [address]Dr. Airam Tripathi ALT [Catalytic activity/Vol] 20 U/L Normal 14-59 [facility] Comment on above: Performed By: #### C MP ####[facility] Tgagczfgkf5977 [place] [phone]. Airam Tripathi Anion gap [Moles/Vol] 11.1 mmol/L Normal [facility] Comment on above: Performed By: #### C MP ####[facility] Zdtlbsmwcj0647 [place] [phone]. Airam Tripathi AST [Catalytic activity/Vol] 19 U/L Normal 15-37 [facility] Comment on above: Performed By: #### C MP ####[facility] Lbunpctvgm7010 [place] [phone]. Airam Tripathi Bilirubin [Mass/Vol] 0.2 mg/dL Normal 0.2-1.0 [facility] Comment on above: Performed By: #### C MP ####[facility] Tfjopqbqdp3212 [place] [phone]. Airam Tripathi Calcium [Mass/Vol] 8.3 mg/dL Critically low 8.5-10.1 [facility] Comment on above: Performed By: #### C MP ####[facility] Owirqjtjou9522 [place] [phone]. Airam Tripathi Chloride [Moles/Vol] 104 mmol/L Normal 98-107 [facility] Comment on above: Performed By: #### C MP ####[facility] Bynstlwtyt2251 [place] [phone]. Airam Tripathi CO2 [Moles/Vol] 25.3 mmol/L Normal 21.0-32.0 [facility] Comment on above: Performed By: #### C MP ####[facility] Ukmcgxxzdd6902 [place] [phone]. Airam Tripathi Creatinine [Mass/Vol] 1.33 mg/dL Critically high 0.55-1.02 [facility] Comment on above: Performed By: #### C MP ####[facility] Xslzimarsh6801 [place] [phone]. Airam Tripathi EGFR-AF LATVIAN 49 mL/min/1.73m2 Critically low >=60 [facility] Comment on above: Performed By: #### C MP ####[facility] Mgukudzjrf2844 [place] [phone]. Airam Tripathi EGFR-NON AF LATVIAN 41 mL/min/1.73m2 Critically low >=60 [facility] Comment on above: Performed By: #### C MP ####[facility] Ohahkgyklr2238 [place] [phone]. Airam Tripathi Globulin (S) [Mass/Vol] 3.1 g/dL Normal [facility] Comment on above: Performed By: #### C MP ####[facility] Hlkahofkda0358 [place] [phone]. Airam Tripathi Glucose [Mass/Vol] 88 mg/dL Normal 74-106 [facility] Comment on above: Performed By: #### C MP ####[facility] Xqgarwzbws0474 [place] [phone]. Airam Tripathi Potassium [Moles/Vol] 5.4 mmol/L Critically high 3.5-5.1 [facility] Comment on above: Performed By: #### C MP ####[facility] Tamwshemlt5272 [place] [address]Dr. Airam Tripathi Protein [Mass/Vol] 5.8 g/dL Critically low 6.4-8.2 [facility] Comment on above: Performed By: #### C MP ####[facility] Flwfuxceft3095 [place] [address]Dr. Airam Tripathi Sodium [Moles/Vol] 135 mmol/L Critically low 136-145 [facility] Comment on above: Performed By: #### C MP ####[facility] Grfqxshbvv6623 [place] [phone]. Airam Tripathi Urea nitrogen [Mass/Vol] 38.0 mg/dL Critically high 7.0-18.0 [facility] Comment on above: Performed By: #### C MP ####[facility] Tcidxddklt9020 [place] [phone]. Airam Tripathi Urea nitrogen/Creatinine [Mass ratio] 28.6 mg/mg Normal [facility] Comment on above: Performed By: #### C MP ####[facility] Dicfhjukwd1119 [place] [phone]. Airam Tripathi OSMOLALITYon 04-15-2022 Osmolality [Osmolality] 284 mosm/kg Normal 275-295 [facility] Comment on above: Performed By: #### O SMO ####[facility] Upywqbzsbi2919 [place] [address]Dr. Airam Tripathi CBC AUTO DIFFon 04-14-2022 BASO # 0.0 103/ul Normal 0.0-0.1 [facility] Comment on above: Performed By: #### C BC ####[facility] Polqdasxql[address] [place], [place] [address]Dr. Airam Tripathi Basophils/100 WBC (Bld) 0.5 % Normal 0.2-2.0 [facility] Comment on above: Performed By: #### C BC ####[facility] Tbogbnyhxj[address] [place], [place] [address]Dr. Airam Tripathi EO # 0.3 103/ul Normal 0.0-0.7 [facility] Comment on above: Performed By: #### C BC ####[facility] Lfbcgiqjes[address] [place], [place] [address]Dr. Selenaneil Tripathi Eosinophils/100 WBC (Bld) 3.6 % Normal 0.9-7.0 [facility] Comment on above: Performed By: #### C BC ####[facility] Gesopzqhuk[address] [place], [place] [address]Dr. Airam Tripathi Erythrocyte distribution width (RBC) [Ratio] 13.4 % Normal 11.0-15.0 [facility] Comment on above: Performed By: #### C BC ####[facility] Etemuiomcv[address] [place], [place] [address]Dr. Airam Tripathi Hematocrit (Bld) [Volume fraction] 30.6 % Critically low 36.0-48.0 [facility] Comment on above: Performed By: #### C BC ####[facility] Ujbidxyrve[address] [place], [place] [address]Dr. Airam Tripathi Hemoglobin (Bld) [Mass/Vol] 9.7 g/dL Critically low 12.0-16.0 [facility] Comment on above: Performed By: #### C BC ####[facility] Mcquxpjuqb8352 [place] [address]Dr. Airam Deuce IG # 0.08 10e3/ul Critically high 0.00-0.03 [facility] Comment on above: Performed By: #### C BC ####[facility] Hhgeuhvzvk0163 [place] [address]Dr. Airam Tripathi IG % 0.9 % Critically high 0.0-0.5 [facility] Comment on above: Performed By: #### C BC ####[facility] Lccjykzppk7262 [place] [address]Dr. Airam Tripathi LYMPH # 2.1 103/ul Normal 1.2-3.8 [facility] Comment on above: Performed By: #### C BC ####[facility] Dykjasslmv2143 [place] [address]Dr. Airam Tripathi Lymphocytes/100 WBC (Bld) 24.2 % Normal 20.5-60.0 [facility] Comment on above: Performed By: #### C BC ####[facility] Tefvhktdnc[address] [place], [place] [address]Dr. Airam Tripathi MANUAL DIFF REQ NO Normal [facility] Comment on above: Performed By: #### C BC ####[facility] Iajatmqczq0917 [place] [address]Dr. Airam Tripathi MCH (RBC) [Entitic mass] 30.4 pg Normal 26.7-34.0 [facility] Comment on above: Performed By: #### C BC ####[facility] Jqtusoeynp[address] [place], [place] [address]Dr. Selenaneil Tripathi MCHC (RBC) [Mass/Vol] 31.7 g/dL Normal 29.9-35.2 [facility] Comment on above: Performed By: #### C BC ####[facility] Nejbpqokrr7142 [place] [address]Dr. Airam Tripathi MCV (RBC) [Entitic vol] 95.9 fL Normal 81.0-99.0 [facility] Comment on above: Performed By: #### C BC ####[facility] Pvxbmfourn9997 [place] [id number]. Airam Tripathi MONO # 0.5 103/ul Normal 0.3-0.8 [facility] Comment on above: Performed By: #### C BC ####[facility] Fsbzjztlhn1261 [place] [phone]. Airam Tripathi Monocytes/100 WBC (Bld) 6.0 % Normal 1.7-12.0 [facility] Comment on above: Performed By: #### C BC ####[facility] Ketuafvzpp5109 [place] [phone]. Airam Tripathi NEUT # 5.6 103/ul Normal 1.4-6.5 [facility] Comment on above: Performed By: #### C BC ####[facility] Btofwupetx[address] [place], [place] [address]Dr. Airam Tripathi Neutrophils/100 WBC (Bld) 64.8 % Normal 43.0-75.0 [facility] Comment on above: Performed By: #### C BC ####[facility] Fopbewuwtl6665 [place] [phone]. Airam Tripathi Platelet mean volume (Bld) [Entitic vol] 9.2 fL Critically low 9.5-13.5 [facility] Comment on above: Performed By: #### C BC ####[facility] Bfcuemvmub1432 [place] [phone]. Airam Tripathi PLT 296 103/ul Normal 150-450 [facility] Comment on above: Performed By: #### C BC ####[facility] N[address]mujxa[address] [place], [place] [address]Dr. Airam Tripathi RBC 3.19 106/ul Critically low 4.20-5.40 [facility] Comment on above: Performed By: #### C BC ####[facility] Y[address]wzxcrdp[address] [place], [place] [address]Dr. Airam Tripathi WBC 8.6 103/ul Normal 4.0-11.0 [facility] Comment on above: Performed By: #### C BC ####[facility] Sequtrqoeu3306 [place] [address]Dr. Airam Tripathi PROF 14(COMP METB)on 04-14- 022 Albumin [Mass/Vol] 3.2 g/dL Critically low 3.4-5.0 [facility] Comment on above: Performed By: #### C MP ####[facility] Xxxewtamhj2294 [place] [address]Dr. Airam Tripathi Albumin/Globulin [Mass ratio] 1.0 {ratio} Normal [facility] Comment on above: Performed By: #### C MP ####[facility] Rrhnosncsg[address] [place], [place] [address]Dr. Airam Tripathi ALP [Catalytic activity/Vol] 126 U/L Critically high 46-116 [facility] Comment on above: Performed By: #### C MP ####[facility] Gtrixsdpxt[address] [place], [place] [address]Dr. Airam Tripathi ALT [Catalytic activity/Vol] 27 U/L Normal 14-59 [facility] Comment on above: Performed By: #### C MP ####[facility] Mocanhrhzy[address] [place], [place] [address]Dr. Airam Tripathi Anion gap [Moles/Vol] 9.6 mmol/L Normal [facility] Comment on above: Performed By: #### C MP ####[facility] Lurucmhgxf67[address] [place], [place] [address]Dr. Airam Tripathi AST [Catalytic activity/Vol] 25 U/L Normal 15-37 [facility] Comment on above: Performed By: #### C MP ####[facility] Oeizjtffoq[address] [place], [place] [address]Dr. Airam Tripathi Bilirubin [Mass/Vol] 0.3 mg/dL Normal 0.2-1.0 [facility] Comment on above: Performed By: #### C MP ####[facility] Jokzgojaiv5[address] [place], [place] [address]Dr. Airam Tripathi Calcium [Mass/Vol] 8.1 mg/dL Critically low 8.5-10.1 [facility] Comment on above: Performed By: #### C MP ####[facility] Woilnzjrxo2087 [place] [address]Dr. Airam Tripathi Chloride [Moles/Vol] 100 mmol/L Normal 98-107 [facility] Comment on above: Performed By: #### C MP ####[facility] Hpfdoinvab4641 [place] [id number]. Airam Tripathi CO2 [Moles/Vol] 26.5 mmol/L Normal 21.0-32.0 [facility] Comment on above: Performed By: #### C MP ####[facility] Sqjazbxmes4118 [place] [address]Dr. Airam Tripathi Creatinine [Mass/Vol] 1.52 mg/dL Critically high 0.55-1.02 [facility] Comment on above: Performed By: #### C MP ####[facility] S[address]iihqyvdn[address] [place], [place] [address]Dr. Airam Tripathi EGFR-AF LATVIAN 42 mL/min/1.73m2 Critically low >=60 [facility] Comment on above: Performed By: #### C MP ####[facility] Wkbftubtev[address] [place], [place] [address]Dr. Airam Tripathi EGFR-NON AF LATVIAN 35 mL/min/1.73m2 Critically low >=60 [facility] Comment on above: Performed By: #### C MP ####[facility] [address]qifhqmla[address] [place], [place] [address]Dr. Airam Tripathi Globulin (S) [Mass/Vol] 3.3 g/dL Normal [facility] Comment on above: Performed By: #### C MP ####[facility] Ufjwbtdetz[address] [place], [place] [address]Dr. Airam Tripathi Glucose [Mass/Vol] 75 mg/dL Normal 74-106 [facility] Comment on above: Performed By: #### C MP ####[facility] Qcdrmwiznc[address] [place], [place] [address]Dr. Airam Deuce Potassium [Moles/Vol] 4.1 mmol/L Normal 3.5-5.1 [facility] Comment on above: Performed By: #### C MP ####[facility] Pteusujmnc6453 [place] [address]Dr. Airam Deuce Protein [Mass/Vol] 6.5 g/dL Normal 6.4-8.2 [facility] Comment on above: Performed By: #### C MP ####[facility] Rbrdlnuyze5328 [place] [address]Dr. Airam Tripathi Sodium [Moles/Vol] 132 mmol/L Critically low 136-145 [facility] Comment on above: Performed By: #### C MP ####[facility] Znjhxnrhrc69[address] [place], [place] [address]Dr. Airam Tripathi Urea nitrogen [Mass/Vol] 40.0 mg/dL Critically high 7.0-18.0 [facility] Comment on above: Performed By: #### C MP ####[facility] Mfcnxrxjcv[address] [place], [place] [address]Dr. Airam Tripathi Urea nitrogen/Creatinine [Mass ratio] 26.3 mg/mg Normal [facility] Comment on above: Performed By: #### C MP ####[facility] [address]lwicnna[address] [place], [place] [address]Dr. Airam Tripathi OSMOLALITYon 04-10-2022 Osmolality [Osmolality] 280 mosm/kg Normal 275-295 [facility] Comment on above: Performed By: #### O SMO ####[facility] Xjvlhgzrek[address] [place], [place] [address]Dr. Airam Tripathi PTH INTACTon 04-09-2022 PTH, Intact 89 pg/mL Critically high 15-65 [facility] Comment on above: Performed By: #### P THINT ####[facility] [address]txexvjr[address] [place], [place] [address]Dr. Airam Tripathi CBC W MANUAL DIFFon 04-08-20 22 ATYPICAL LYMPH # Normal [facility] Comment on above: Performed By: #### C BCMAN ####[facility] Otzqtdjiwx103845 [address] [place], [place] [address]Dr. Airam Tripathi ATYPICAL LYMPH % Normal [facility] Comment on above: Performed By: #### C BCMAN ####[facility] Gzlkgsfonf[address] [place] [id number]. Yilan Tripathi BAND # Normal 0.0-0.3 [facility] Comment on above: Performed By: #### C BCGERALDINE ####[facility] Imwbyvxcnu[address] [place] [address]Dr. Yilan Tripathi BAND % Normal 0-5 [facility] Comment on above: Performed By: #### C BCGERALDINE ####[facility] Nkqcwzdonh37[address] [place] [address]Dr. Yilan Tripathi BASOM # 0.00 103/ul Normal 0.00-0.10 [facility] Comment on above: Performed By: #### C CHRISTEN ####[facility] Ivxsgunsrv[address] [place], [place] [address]Dr. Yilan Tripathi BASOM % 0.0 % Critically low 0.2-2.0 The [facility] Comment on above: Performed By: #### C CHRISTEN ####[facility] Hslyiuefit[address] [place], [place] [address]Dr. Yilan Tripathi BLAST # Normal [facility] Comment on above: Performed By: #### C CHRISTEN ####[facility] Vpiawcqgwf[address] [place], [place] [address]Dr. Yilan Tripathi BLAST % Normal [facility] Comment on above: Performed By: #### C CHRISTEN ####[facility] Eeoszcjcvl[address] [place], [place] [address]Dr. Yilan Tripathi CORRECTED WBC Normal 4.0-11.0 [facility] Comment on above: Performed By: #### C CHRISTEN ####[facility] Hwbhcqwimj[address] [place], [place] [address]Dr. Yilan Tripathi EOS # 0.00 103/ul Normal 0.00-0.70 [facility] Comment on above: Performed By: #### C CHRISTEN ####[facility] Edtxfsyrid20[address] [place], [place] [address]Dr. Yilan Tripathi EOS% 0.0 % Critically low 0.9-7.0 [facility] Comment on above: Performed By: #### C CHRISTEN ####[facility] Gegwqkwwox8662 [place], [place] [address]Gn. Airam Tripathi HCT 29.7 % Critically low 36.0-48.0 [facility] Comment on above: Performed By: #### C CHRISTEN ####[facility] Hnpwvhuocq5345 [place], [place] [address]Hw. Airam Tripathi HGB 9.5 g/dl Critically low 12.0-16.0 [facility] Comment on above: Performed By: #### C CHRISTEN ####[facility] Clpwetsssr2821 [place] [id number]. Airam Tripathi LYMPHM # 0.42 103/ul Critically low 1.20-3.80 [facility] Comment on above: Performed By: #### C CHRISTEN ####[facility] Wuqynjuvbc2165 [place] [id number]. Airam Tripathi LYMPHM% 7.0 % Critically low 20.5-60.0 [facility] Comment on above: Performed By: #### C CHRISTEN ####[facility] Dmjothodqh4412 [place] [id number]. Airam Tripathi MCH 30.9 pg Normal 26.7-34.0 [facility] Comment on above: Performed By: #### C CHRISTEN ####[facility] Flrzucznss8998 [place] [id number]. Airam Tripathi MCHC 32.0 g/dl Normal 29.9-35.2 [facility] Comment on above: Performed By: #### C CHRISTEN ####[facility] Qodlskfidm0841 [place] [phone]. Airam Tripathi MCV 96.7 fL Normal 81.0-99.0 [facility] Comment on above: Performed By: #### C CHRISTEN ####[facility] Jdvchtgslm4473 [place] [phone]. Airam Tripathi METAMYELOCYTE # Normal [facility] Comment on above: Performed By: #### C CHRISTEN ####[facility] Bhqdusphpv0944 [place] [phone]. Airam Tripathi METAMYELOCYTE % Normal [facility] Comment on above: Performed By: #### C CHRISTEN ####[facility] Wonsebqjbm6665 [place] [phone]. Airam Tripathi MONOM# 0.36 103/ul Normal 0.30-0.80 [facility] Comment on above: Performed By: #### C CHRISTEN ####[facility] Mcjigvawjz6892 [place] [phone]. Airam Tripathi MONOM% 6.0 % Normal 1.7-12.0 [facility] Comment on above: Performed By: #### C CHRISTEN ####[facility] Dyjdpjczhl5271 [place] [phone]. Airam Tripathi MPV 9.5 fL Normal 9.5-13.5 [facility] Comment on above: Performed By: #### C CHRISTEN ####[facility] Orvgjzzggt1465 [place] [phone]. Airam Tripathi MYELOCYTE # Normal [facility] Comment on above: Performed By: #### C CHRISTEN ####[facility] Rwgkqtkkca5093 [place] [phone]. Airam Tripathi MYELOCYTE % Normal [facility] Comment on above: Performed By: #### C CHRISTEN ####[facility] Bcgtzdllil4805 [place] [phone]. Airam Tripathi NRBC Normal [facility] Comment on above: Performed By: #### C CHRISTEN ####[facility] Hdwudwnkne8119 [place] [phone]. Airam Tripathi PLT 185 103/ul Normal 150-450 [facility] Comment on above: Performed By: #### C CHRISTEN ####[facility] Oqlmceprxw5908 [place] [phone]. Airam Tripathi RBC 3.07 106/ul Critically low 4.20-5.40 [facility] Comment on above: Performed By: #### C CHRISTEN ####[facility] Fwuqhkzsjc4058 [place] [phone]. Airam Tripathi RDW 13.6 % Normal 11.0-15.0 [facility] Comment on above: Performed By: #### C BCMAN ####[facility] Zthyaeblmh1188 [place] [phone]. Airam Tripathi SEG # 5.22 103/ul Normal 1.40-6.50 [facility] Comment on above: Performed By: #### C BCMAN ####[facility] Dprwxueixn9327 [place] [phone]. Airam Tripathi SEG % 87.0 % Critically high 43.0-75.0 [facility] Comment on above: Performed By: #### C BCMAN ####[facility] Slqefpybyl1570 [place] [phone]. Airam Tripathi WBC 6.0 103/ul Normal 4.0-11.0 [facility] Comment on above: Performed By: #### C CHRISTEN ####[facility] Vvlfgxpwpt0336 [place] [phone]. Airam Tripathi FREE THYROXINE INDEX T7on FTI 1.57 Normal 1.30-4.50 [facility] Comment on above: Performed By: #### T 7, TSH, CMP ####[facility] Nsjutebvnz4346 [place] [id number]. Airam Tripathi T3U 32.0 % Normal 30.0-39.0 [facility] Comment on above: Performed By: #### T 7, TSH, CMP ####[facility] Syejtuphsn2905 [place] [phone]. Airam Tripathi T4 [Mass/Vol] 4.90 ug/dL Normal 4.80-13.90 [facility] Comment on above: Performed By: #### T 7, TSH, CMP ####[facility] Mdmoxbntph5177 [place] [phone]. Airam Tripathi PROF 14(COMP METB)on 022 Albumin [Mass/Vol] 3.0 g/dL Critically low 3.4-5.0 Th e [facility] Comment on above: Performed By: #### T 7, TSH, CMP ####[facility] Djepgcapjj5541 [place] [address]Dr. Airam Tripathi Albumin/Globulin [Mass ratio] 1.0 {ratio} Normal [facility] Comment on above: Performed By: #### T 7, TSH, CMP ####[facility] Fwmalurdww5[address] [place], [place] [address]Dr. Airam Tripathi ALP [Catalytic activity/Vol] 106 U/L Normal 46-116 [facility] Comment on above: Performed By: #### T 7, TSH, CMP ####[facility] Afsfzhkbvu7488[address] [place], [place] [address]Dr. Selenaneil Tripathi ALT [Catalytic activity/Vol] 20 U/L Normal 14-59 [facility] Comment on above: Performed By: #### T 7, TSH, CMP ####[facility] Trlgqketxy5930[address] [place], [place] [address]Dr. Selenaneil Tripathi Anion gap [Moles/Vol] 10.8 mmol/L Normal [facility] Comment on above: Performed By: #### T 7, TSH, CMP ####[facility] Bunxsyzthe5269[address] [place], [place] [address]Dr. Airam Deuce AST [Catalytic activity/Vol] 19 U/L Normal 15-37 [facility] Comment on above: Performed By: #### T 7, TSH, CMP ####[facility] Tbngerlcaw7414[address] [place], [place] [address]Dr. Selenaneil Tripathi Bilirubin [Mass/Vol] 0.3 mg/dL Normal 0.2-1.0 [facility] Comment on above: Performed By: #### T 7, TSH, CMP ####[facility] Upwreqqbvm6970[address] [place], [place] [address]Dr. Selenaneil Tripathi Calcium [Mass/Vol] 8.0 mg/dL Critically low 8.5-10.1 [facility] Comment on above: Performed By: #### T 7, TSH, CMP ####[facility] Zfbqsfelxd1090[address] [place], [place] [address]Dr. Airam Tripathi Chloride [Moles/Vol] 100 mmol/L Normal 98-107 [facility] Comment on above: Performed By: #### T 7, TSH, CMP ####[facility] Whctqpalhi3344 [place] [address]Dr. Airam Tripathi CO2 [Moles/Vol] 24.3 mmol/L Normal 21.0-32.0 [facility] Comment on above: Performed By: #### T 7, TSH, CMP ####[facility] Teouiehosl1586 [place] [address]Dr. Airam Deuce Creatinine [Mass/Vol] 1.12 mg/dL Critically high 0.55-1.02 [facility] Comment on above: Performed By: #### T 7, TSH, CMP ####[facility] Ilslohlysa7467[address] [place], [place] [address]Dr. Airam Deuce EGFR-AF LATVIAN 60 mL/min/1.73m2 Normal >=60 [facility] Comment on above: Performed By: #### T 7, TSH, CMP ####[facility] Owwxueztwt60[address] [place], [place] [address]Dr. Airam Tripathi EGFR-NON AF LATVIAN 50 mL/min/1.73m2 Critically low >=60 [facility] Comment on above: Performed By: #### T 7, TSH, CMP ####[facility] Lxjigygntn[address] [place], [place] [address]Dr. Selenaneil Tripathi Globulin (S) [Mass/Vol] 3.0 g/dL Normal [facility] Comment on above: Performed By: #### T 7, TSH, CMP ####[facility] Hdxqjyafsb129[address] [place], [place] [address]Dr. Airam Tripathi Glucose [Mass/Vol] 76 mg/dL Normal 74-106 [facility] Comment on above: Performed By: #### T 7, TSH, CMP ####[facility] Erxoqlxbcj4765[address] [place], [place] [address]Dr. Airam Tripathi Potassium [Moles/Vol] 4.1 mmol/L Normal 3.5-5.1 [facility] Comment on above: Performed By: #### T 7, TSH, CMP ####[facility] Axrfdwwqnc4550[address] [place], [place] [address]Dr. Selenaneil Tripathi Protein [Mass/Vol] 6.0 g/dL Critically low 6.4-8.2 Th [facility] Comment on above: Performed By: #### T 7, TSH, CMP ####[facility] Atextnxmci2237[address] [place], [place] [address]Dr. Airam Tripathi Sodium [Moles/Vol] 131 mmol/L Critically low 136-145 Th [facility] Comment on above: Performed By: #### T 7, TSH, CMP ####[facility] Mbujciqkiu[address] [place], [place] [address]Dr. Airam Tripathi Urea nitrogen [Mass/Vol] 32.0 mg/dL Critically high 7.0-18.0 [facility] Comment on above: Performed By: #### T 7, TSH, CMP ####[facility] Skjuxairuo0667[address] [place], [place] [address]Dr. Airam Tripathi Urea nitrogen/Creatinine [Mass ratio] 28.6 mg/mg Normal [facility] Comment on above: Performed By: #### T 7, TSH, CMP ####[facility] Gqoslaudba34[address] [place], [place] [address]Dr. Airam Tripathi TSHon 04-08-2022 TSH 0.027 uIU/mL Critically low 0.358-3.740 [facility] Comment on above: Performed By: #### T 7, TSH, CMP ####[facility] Wocegexhbp390[address] [place], [place] [address]Dr. Airam Tripathi UA RANDOMon 04-08-2022 Bilirubin Ql (U) Negative Normal NEGATIVE [facility] Comment on above: Performed By: #### U A ####[facility] Ashttjpdga101[address] [place], [place] [address]Dr. Airam Tripathi Clarity (U) CLEAR Normal CLEAR [facility] Comment on above: Performed By: #### U A ####[facility] Jawjaddfgu701[address] [place], [place] [address]Dr. Airam Tripathi Color (U) LT. YELLOW Normal YELLOW [facility] Comment on above: Performed By: #### U A ####[facility] Xjdwoxqtuc5807[address] [place], [place] [address]Dr. Airam Tripathi Glucose Ql (U) Negative Normal NEGATIVE The [facility] Comment on above: Performed By: #### U A ####[facility] Tqlcdaaqwo3490[address] [place], [place] [address]Dr. Airam Tripathi Hemoglobin Ql (U) Negative Normal NEGATIVE The [facility] Comment on above: Performed By: #### U A ####[facility] Gegcihjjnm5[address] [place], [place] [address]Dr. Airam Deuce Ketones Ql (U) Negative Normal NEGATIVE The [facility] Comment on above: Performed By: #### U A ####[facility] Meqhogvgnh313[address] [place], [place] [address]Dr. Airam Tripathi LEUKOCYTES Negative Normal NEGATIVE The [facility] Comment on above: Performed By: #### U A ####[facility] Xlwqqdzplb85[address] [place], [place] [address]Dr. Airam Deuce Nitrite Ql (U) Negative Normal NEGATIVE The [facility] Comment on above: Performed By: #### U A ####[facility] Kefgxplkac7332[address] [place], [place] [address]Dr. Airam Tripathi pH (U) 6.0 [pH] Normal 5-9 [facility] Comment on above: Performed By: #### U A ####[facility] Yuthfyiwxr9[address] [place], [place] [address]Dr. Airam Deuce SPEC GRAVITY 1.010 Normal 1.005-<=1.02 5 [facility] Comment on above: Performed By: #### U A ####[facility] Mpqdtponsh[address] [place], [place] [address]Dr. Airam Deuce UA PROTEIN Negative Normal NEGATIVE/ TRACE [facility] Comment on above: Performed By: #### U A ####[facility] Zdimqydkml5[address] [place], [place] [address]Dr. Airam Tripathi Urobilinogen Qn (U) 0.2 {Ligia'U}/dL Normal 0.2 - 1. 0 The [facility] Comment on above: Performed By: #### U A ####[facility] Vmvhttchcw[address] [place], [place] [address]Dr. Airam Tripathi URINE T PROTEIN CREAT RATIOo n 04-08-2022 UR PROT CREAT RAT 0.32 Normal [facility] Comment on above: Performed By: #### U RTPCR ####[facility] Jmlddfemyv8521 [place] [id number]. Airam Tripathi UR TOTAL PROTEIN <6.0 Normal <=12.0 [facility] Comment on above: Performed By: #### U RTPCR ####[facility] Jmrmujsgjp7018 [place] [address]Dr. Airam Tripathi URINE CREAT 18.75 mg/dL Critically low 20.00-300.00 [facility] Comment on above: Performed By: #### U RTPCR ####[facility] Lofkmxlmlz[address] [place], [place] [address]Dr. Airam Tripathi FERRITINon 04-06-2022 Ferritin [Mass/Vol] 99.0 ng/mL Normal 8.0-252.0 [facility] Comment on above: Performed By: #### F ETIBC, VITAD, FERR ####[facility] Idxmrfwakw5542 [place] [address]Dr. Airam Tripathi IRON AND TIBCon 04-06-2022 % SATURATION 15.4 % Normal [facility] Comment on above: Performed By: #### F ETIBC, VITAD, FERR ####[facility] Jmevvziwms7986 [place] [address]Dr. Airam Tripathi Iron [Mass/Vol] 43.0 ug/dL Critically low 50.0-170.0 [facility] Comment on above: Performed By: #### F ETIBC, VITAD, FERR ####[facility] Bqifdfdlgz2744 [place] [address]Dr. Airam Tripathi TIBC DIRECT 280.0 ug/dL Normal 250.0-450.0 [facility] Comment on above: Performed By: #### F ETIBC, VITAD, FERR ####[facility] Ecrweggegw7394 [place] [address]Dr. Airam Tripathi PROF 14(COMP METB)on 022 Albumin [Mass/Vol] 3.2 g/dL Critically low 3.4-5.0 Th [facility] Comment on above: Performed By: #### C MP, URIC ####[facility] Jrrhfeotfm4620 [place] [address]Dr. Airam Tripathi Albumin/Globulin [Mass ratio] 1.0 {ratio} Normal [facility] Comment on above: Performed By: #### C MP, URIC ####[facility] Pamwgttdcd0029 [place] [address]Dr. Airam Tripathi ALP [Catalytic activity/Vol] 118 U/L Critically high 46-116 [facility] Comment on above: Performed By: #### C MP, URIC ####[facility] Zrbrpezzkr6067 [place] [address]Dr. Airam Tripathi ALT [Catalytic activity/Vol] 24 U/L Normal 14-59 [facility] Comment on above: Performed By: #### C MP, URIC ####[facility] Reftzjnvdu615[address] [place], [place] [address]Dr. Airam Tripathi Anion gap [Moles/Vol] 14.4 mmol/L Normal [facility] Comment on above: Performed By: #### C MP, URIC ####[facility] Nxdsbkrgxu4568[address] [place], [place] [address]Dr. Airam Tripathi AST [Catalytic activity/Vol] 21 U/L Normal 15-37 [facility] Comment on above: Performed By: #### C MP, URIC ####[facility] Jqgkxiakhy5429 [place] [address]Dr. iAram Tripathi Bilirubin [Mass/Vol] 0.3 mg/dL Normal 0.2-1.0 [facility] Comment on above: Performed By: #### C MP, URIC ####[facility] Flnofufkdw8924 [place] [address]Dr. Airam Tripathi Calcium [Mass/Vol] 8.0 mg/dL Critically low 8.5-10.1 Th [facility] Comment on above: Performed By: #### C MP, URIC ####[facility] Sfpmsyztra9[address] [place], [place] [address]Dr. Airam Tripathi Chloride [Moles/Vol] 98 mmol/L Normal 98-107 [facility] Comment on above: Performed By: #### C MP, URIC ####[facility] Gpfjavccyj66[address] [place], [place] [address]Dr. Airam Tripathi CO2 [Moles/Vol] 22.0 mmol/L Normal 21.0-32.0 [facility] Comment on above: Performed By: #### C MP, URIC ####[facility] Q[address]vytuplpb1299[address] [place], [place] [address]Dr. Airam Tripathi Creatinine [Mass/Vol] 1.86 mg/dL Critically high 0.55-1.02 [facility] Comment on above: Performed By: #### C MP, URIC ####[facility] Anahqhytfj28[address] [place], [place] [address]Dr. Airam Tripathi EGFR-AF LATVIAN 33 mL/min/1.73m2 Critically low >=60 [facility] Comment on above: Performed By: #### C MP, URIC ####[facility] Bcfcopyfho707[address] [place], [place] [address]Dr. Airam Tripathi EGFR-NON AF LATVIAN 28 mL/min/1.73m2 Critically low >=60 [facility] Comment on above: Performed By: #### C MP, URIC ####[facility] Kxpaqpeang449[address] [place], [place] [address]Dr. Airam Tripathi Globulin (S) [Mass/Vol] 3.1 g/dL Normal [facility] Comment on above: Performed By: #### C MP, URIC ####[facility] Oekkuuurra8[address] [place], [place] [address]Dr. Airam Tripathi Glucose [Mass/Vol] 93 mg/dL Normal 74-106 [facility] Comment on above: Performed By: #### C MP, URIC ####[facility] Ztnofbfcra47[address] [place], [place] [address]Dr. Airam Tripathi Potassium [Moles/Vol] 4.4 mmol/L Normal 3.5-5.1 [facility] Comment on above: Performed By: #### C MP, URIC ####[facility] Pssczvsgcl[address] [place], [place] [address]Dr. Airam Tripathi Protein [Mass/Vol] 6.3 g/dL Critically low 6.4-8.2 Th [facility] Comment on above: Performed By: #### C MP, URIC ####[facility] Ufmhiixkme8587 [place] [address]Dr. Airam Tripathi Sodium [Moles/Vol] 130 mmol/L Critically low 136-145 Th [facility] Comment on above: Performed By: #### C MP, URIC ####[facility] Cgbfkvasdf3135 [place] [address]Dr. Airam Tripathi Urea nitrogen [Mass/Vol] 49.0 mg/dL Critically high 7.0-18.0 [facility] Comment on above: Performed By: #### C MP, URIC ####[facility] Eacsrmotrl994[address] [place], [place] [address]Dr. Airam Tripathi Urea nitrogen/Creatinine [Mass ratio] 26.3 mg/mg Normal [facility] Comment on above: Performed By: #### C MP, URIC ####[facility] Zrsoyzyupm[address] [place], [place] [address]Dr. Airam Tripathi URIC ACID SERUMon 04-06-2022 Urate [Mass/Vol] 6.5 mg/dL Critically high 2.6-6.0 [facility] Comment on above: Performed By: #### C MP, URIC ####[facility] Fqzrhczflh[address] [place], [place] [address]Dr. Airam Tripathi VITAMIN D 25 OHon 04-06-2022 VIT D 25-OH 74.5 ng/mL Normal [facility] Comment on above: Performed By: #### F ETIBC, VITAD, FERR ####[facility] Xkrwhgtplc2563 [place] [address]Dr. Airam Tripathi VIT D RANGES SEE BELOW Normal [facility] Comment on above: Result Comment: <20 ng/mL Vit D deficient 20 - <30 ng/mL Vit D insufficient 30 - 100 ng/mL Vit D sufficient >100 ng/mL Potential Toxicity Performed By: #### F ETIBC, VITAD, FERR ####[facility] Yhyvrxaypk5278 [place] [address]Dr. Airam Tripathi OSMOLALITYon 04-01-2022 Osmolality [Osmolality] 284 mosm/kg Normal 275-295 [facility] Comment on above: Performed By: #### O SMO ####[facility] Fibqwxohok8564 [place] [address]Dr. Airam Tripathi CBC AUTO DIFFon 03-31-2022 BASO # 0.0 103/ul Normal 0.0-0.1 [facility] Comment on above: Performed By: #### C BC ####[facility] Uueykgijil01[address] [place], [place] [address]Dr. Airam Deuce Basophils/100 WBC (Bld) 0.3 % Normal 0.2-2.0 [facility] Comment on above: Performed By: #### C BC ####[facility] Fqutivgvtx86[address] [place], [place] [address]Dr. Airam Tripathi EO # 0.1 103/ul Normal 0.0-0.7 [facility] Comment on above: Performed By: #### C BC ####[facility] Kvwzowallu[address] [place], [place] [address]Dr. Selenaneil Tripathi Eosinophils/100 WBC (Bld) 2.0 % Normal 0.9-7.0 [facility] Comment on above: Performed By: #### C BC ####[facility] B[address]tsiqnkg[address] [place], [place] [address]Dr. Selenaneil Tripathi Erythrocyte distribution width (RBC) [Ratio] 13.5 % Normal 11.0-15.0 [facility] Comment on above: Performed By: #### C BC ####[facility] Jrjxjxzquy6[address] [place], [place] [address]Dr. Airam Tripathi Hematocrit (Bld) [Volume fraction] 32.5 % Critically low 36.0-48.0 [facility] Comment on above: Performed By: #### C BC ####[facility] Ohxmidhngc[address] [place], [place] [address]Dr. Airam Deuce Hemoglobin (Bld) [Mass/Vol] 10.1 g/dL Critically low 12.0-16.0 [facility] Comment on above: Performed By: #### C BC ####[facility] Qytaxtgowo2862 [place] [id number]. Airam Tripathi IG # 0.03 10e3/ul Normal 0.00-0.03 [facility] Comment on above: Performed By: #### C BC ####[facility] Efmgsnlgyg8559 [place] [id number]. Airam Tripathi IG % 0.4 % Normal 0.0-0.5 [facility] Comment on above: Performed By: #### C BC ####[facility] Cgevwriqaz99[address] [place] [address]Dr. Airam Tripathi LYMPH # 1.6 103/ul Normal 1.2-3.8 [facility] Comment on above: Performed By: #### C BC ####[facility] [address]vapizp[address] [place], [place] [address]Dr. Airam Tripathi Lymphocytes/100 WBC (Bld) 22.6 % Normal 20.5-60.0 [facility] Comment on above: Performed By: #### C BC ####[facility] Oipxumbxwa4567 [place] [address]Dr. Airam Tripathi MANUAL DIFF REQ NO Normal [facility] Comment on above: Performed By: #### C BC ####[facility] [address]prvyjjme[address] [place], [place] [address]Dr. Airam Tripathi MCH (RBC) [Entitic mass] 30.5 pg Normal 26.7-34.0 [facility] Comment on above: Performed By: #### C BC ####[facility] [address]rm[address]uuplmk[address] [place], [place] [address]Dr. Airam Tripathi MCHC (RBC) [Mass/Vol] 31.1 g/dL Normal 29.9-35.2 [facility] Comment on above: Performed By: #### C BC ####[facility] Jaknvvcnmz3105 [place] [address]Dr. Airam Tripathi MCV (RBC) [Entitic vol] 98.2 fL Normal 81.0-99.0 [facility] Comment on above: Performed By: #### C BC ####[facility] Ffisafrqbm7[address] [place] [id number]. Airam Tripathi MONO # 0.5 103/ul Normal 0.3-0.8 [facility] Comment on above: Performed By: #### C BC ####[facility] Meocygxbhk7808 [place] [id number]. Airam Tripathi Monocytes/100 WBC (Bld) 7.3 % Normal 1.7-12.0 [facility] Comment on above: Performed By: #### C BC ####[facility] Pbpunhkygi3895 [place] [id number]. Airam Tripathi NEUT # 4.7 103/ul Normal 1.4-6.5 [facility] Comment on above: Performed By: #### C BC ####[facility] Mluxrqalso9467 [place] [id number]. Airam Tripathi Neutrophils/100 WBC (Bld) 67.4 % Normal 43.0-75.0 [facility] Comment on above: Performed By: #### C BC ####[facility] Ghhaimuccs5380 [place] [id number]. Airam Tripathi Platelet mean volume (Bld) [Entitic vol] 9.5 fL Normal 9.5-13.5 [facility] Comment on above: Performed By: #### C BC ####[facility] Rmliwcflqa0498 [place] [id number]. Airam Tripathi PLT 273 103/ul Normal 150-450 [facility] Comment on above: Performed By: #### C BC ####[facility] Xcnmsptxpq3614 [place] [id number]. Airam Tripathi RBC 3.31 106/ul Critically low 4.20-5.40 [facility] Comment on above: Performed By: #### C BC ####[facility] Piiouetdwb9504 [place] [phone]. Airam Tripathi WBC 7.0 103/ul Normal 4.0-11.0 [facility] Comment on above: Performed By: #### C BC ####[facility] Vywvlrbadj[address] [place], [place] [address]Dr. Airam Tripathi PROF 14(COMP METB)on 022 Albumin [Mass/Vol] 3.4 g/dL Normal 3.4-5.0 [facility] Comment on above: Performed By: #### C MP ####[facility] Rqzeyouoqs[address] [place], [place] [address]Dr. Airam Tripathi Albumin/Globulin [Mass ratio] 1.1 {ratio} Normal [facility] Comment on above: Performed By: #### C MP ####[facility] Vbaocqixms[address] [place], [place] [address]Dr. Airam Tripathi ALP [Catalytic activity/Vol] 107 U/L Normal 46-116 [facility] Comment on above: Performed By: #### C MP ####[facility] Tedfgfqfsf1809[address] [place], [place] [address]Dr. Airam Tripathi ALT [Catalytic activity/Vol] 22 U/L Normal 14-59 [facility] Comment on above: Performed By: #### C MP ####[facility] Vpyryzazft35[address] [place], [place] [address]Dr. Airam Tripathi Anion gap [Moles/Vol] 6.8 mmol/L Normal [facility] Comment on above: Performed By: #### C MP ####[facility] Wiowpwkvqd269[address] [place], [place] [address]Dr. Airam Tripathi AST [Catalytic activity/Vol] 23 U/L Normal 15-37 [facility] Comment on above: Performed By: #### C MP ####[facility] Rdyimiyktj124[address] [place], [place] [address]Dr. Airam Tripathi Bilirubin [Mass/Vol] 0.2 mg/dL Normal 0.2-1.0 [facility] Comment on above: Performed By: #### C MP ####[facility] Izcsifuict006[address] [place], [place] [address]Dr. Airam Tripathi Calcium [Mass/Vol] 8.4 mg/dL Critically low 8.5-10.1 [facility] Comment on above: Performed By: #### C MP ####[facility] Mrsytpirpi4030 [place] [address]Dr. Airam Tripathi Chloride [Moles/Vol] 100 mmol/L Normal 98-107 [facility] Comment on above: Performed By: #### C MP ####[facility] Xadbhcxpnt7020 [place] [address]Dr. Airam Tripathi CO2 [Moles/Vol] 29.9 mmol/L Normal 21.0-32.0 [facility] Comment on above: Performed By: #### C MP ####[facility] Fljbuelqme2399 [place] [address]Dr. Airam Tripathi Creatinine [Mass/Vol] 1.20 mg/dL Critically high 0.55-1.02 [facility] Comment on above: Performed By: #### C MP ####[facility] Oeufeofrjq1205[address] [place], [place] [address]Dr. Airam Tripathi EGFR-AF LATVIAN 56 mL/min/1.73m2 Critically low >=60 [facility] Comment on above: Performed By: #### C MP ####[facility] Nbidoeqdho[address] [place], [place] [address]Dr. Airam Tripathi EGFR-NON AF LATVIAN 46 mL/min/1.73m2 Critically low >=60 [facility] Comment on above: Performed By: #### C MP ####[facility] Skjwmpfyll4744 [place] [address]Dr. Airam Tripathi Globulin (S) [Mass/Vol] 3.0 g/dL Normal [facility] Comment on above: Performed By: #### C MP ####[facility] Alvflqbpve4114 [place] [address]Dr. Airam Deuce Glucose [Mass/Vol] 57 mg/dL Critically low 74-106 [facility] Comment on above: Performed By: #### C MP ####[facility] Pejhcfbmog5418 [place] [address]Dr. Airam Tripathi Potassium [Moles/Vol] 3.7 mmol/L Normal 3.5-5.1 [facility] Comment on above: Performed By: #### C MP ####[facility] Egugjgjoqv1374 [place] [address]Dr. Airam Tripathi Protein [Mass/Vol] 6.4 g/dL Normal 6.4-8.2 [facility] Comment on above: Performed By: #### C MP ####[facility] Nbjfdhugsy8129[address] [place], [place] [address]Dr. Airam Tripathi Sodium [Moles/Vol] 133 mmol/L Critically low 136-145 [facility] Comment on above: Performed By: #### C MP ####[facility] Bzwfmikter9274[address] [place], [place] [address]Dr. Airam Tripathi Urea nitrogen [Mass/Vol] 39.0 mg/dL Critically high 7.0-18.0 [facility] Comment on above: Performed By: #### C MP ####[facility] Yrisawusyl9433[address] [place], [place] [address]Dr. Airam Tripathi Urea nitrogen/Creatinine [Mass ratio] 32.5 mg/mg Normal [facility] Comment on above: Performed By: #### C MP ####[facility] Xwevivhupr0132[address] [place], [place] [address]Dr. Airam Tripathi OSMOLALITYon 03-24-2022 Osmolality [Osmolality] 285 mosm/kg Normal 275-295 [facility] Comment on above: Performed By: #### O SMO ####[facility] Uhbiuceidx9180[address] [place], [place] [address]Dr. Airam Triapthi CBC AUTO DIFFon 03-22-2022 BASO # 0.0 103/ul Normal 0.0-0.1 [facility] Comment on above: Performed By: #### C BC ####[facility] Mvmuugyyql4637[address] [place], [place] [address]Dr. Airam Deuce Basophils/100 WBC (Bld) 0.4 % Normal 0.2-2.0 [facility] Comment on above: Performed By: #### C BC ####[facility] Ssslrpdrqf5970[address] [place], [place] [address]Dr. Airam Deuce EO # 0.2 103/ul Normal 0.0-0.7 [facility] Comment on above: Performed By: #### C BC ####[facility] Uxncegfvtu5405 [place] [id number]. Airam Tripathi Eosinophils/100 WBC (Bld) 2.3 % Normal 0.9-7.0 [facility] Comment on above: Performed By: #### C BC ####[facility] Ukzgaqraio2905 [place] [id number]. iAram Tripathi Erythrocyte distribution width (RBC) [Ratio] 13.9 % Normal 11.0-15.0 [facility] Comment on above: Performed By: #### C BC ####[facility] Viykuplque7562 [place] [phone]. Airam Tripathi Hematocrit (Bld) [Volume fraction] 32.6 % Critically low 36.0-48.0 [facility] Comment on above: Performed By: #### C BC ####[facility] Cipkeirbya476[address] [place], [place] [address]Dr. Airam Tripathi Hemoglobin (Bld) [Mass/Vol] 10.3 g/dL Critically low 12.0-16.0 [facility] Comment on above: Performed By: #### C BC ####[facility] Qkdecmhzyt300[address] [place], [place] [address]Dr. Airam Tripathi IG # 0.11 10e3/ul Critically high 0.00-0.03 [facility] Comment on above: Performed By: #### C BC ####[facility] Klqcqrdavq036[address] [place], [place] [address]Dr. Airam Tripathi IG % 1.4 % Critically high 0.0-0.5 [facility] Comment on above: Performed By: #### C BC ####[facility] Wgtawwgqhz2598 [place] [id number]. Airam Tripathi LYMPH # 1.3 103/ul Normal 1.2-3.8 [facility] Comment on above: Performed By: #### C BC ####[facility] Yeylevfiml717[address] [place], [place] [address]Dr. Airam Tripathi Lymphocytes/100 WBC (Bld) 15.9 % Critically low 20.5-60.0 [facility] Comment on above: Performed By: #### C BC ####[facility] Hxikaruuir0244 [place] [address]Dr. Airam Tripathi MANUAL DIFF REQ NO Normal [facility] Comment on above: Performed By: #### C BC ####[facility] Ivhmprjbce6613 [place] [phone]. Airam Tripathi MCH (RBC) [Entitic mass] 30.7 pg Normal 26.7-34.0 [facility] Comment on above: Performed By: #### C BC ####[facility] Otpbjremvo186[address] [place], [place] [address]Dr. Airam Tripathi MCHC (RBC) [Mass/Vol] 31.6 g/dL Normal 29.9-35.2 [facility] Comment on above: Performed By: #### C BC ####[facility] Neqrabacoz668[address] [place], [place] [address]Dr. Airam Tripathi MCV (RBC) [Entitic vol] 97.0 fL Normal 81.0-99.0 [facility] Comment on above: Performed By: #### C BC ####[facility] Sxgerxjuxo99[address] [place], [place] [address]Dr. Airam Tripathi MONO # 0.6 103/ul Normal 0.3-0.8 [facility] Comment on above: Performed By: #### C BC ####[facility] Dfrfayodah60[address] [place], [place] [address]Dr. Airam Deuce Monocytes/100 WBC (Bld) 6.9 % Normal 1.7-12.0 [facility] Comment on above: Performed By: #### C BC ####[facility] Tdegbyaxnb123[address] [place], [place] [address]Dr. Airam Tripathi NEUT # 5.9 103/ul Normal 1.4-6.5 [facility] Comment on above: Performed By: #### C BC ####[facility] Htjgcksfjz4[address] [place], [place] [address]Dr. Airam Tripathi Neutrophils/100 WBC (Bld) 73.1 % Normal 43.0-75.0 [facility] Comment on above: Performed By: #### C BC ####[facility] Cfqhwvpenw9711 [place] [id number]. Selenaneil Deuce Platelet mean volume (Bld) [Entitic vol] 9.5 fL Normal 9.5-13.5 [facility] Comment on above: Performed By: #### C BC ####[facility] Abpdbnxdjq6335 [place] [phone]. Airam Tripathi PLT 313 103/ul Normal 150-450 [facility] Comment on above: Performed By: #### C BC ####[facility] Ytgdcyacww3494 [place] [phone]. Airam Tripathi RBC 3.36 106/ul Critically low 4.20-5.40 [facility] Comment on above: Performed By: #### C BC ####[facility] Qqsijqnqfs5385 [place] [address]Dr. Airam Tripathi WBC 8.1 103/ul Normal 4.0-11.0 [facility] Comment on above: Performed By: #### C BC ####[facility] Dxjdoaaxpg0933 [place] [address]Dr. Airam Tripathi PROF 14(COMP METB)on 022 Albumin [Mass/Vol] 3.3 g/dL Critically low 3.4-5.0 [facility] Comment on above: Performed By: #### C MP ####[facility] Anduweisyq0102 [place] [address]Dr. Airam Tripathi Albumin/Globulin [Mass ratio] 1.0 {ratio} Normal [facility] Comment on above: Performed By: #### C MP ####[facility] Uvelfmojnk1504 [place] [id number]. Airam Tripathi ALP [Catalytic activity/Vol] 113 U/L Normal 46-116 [facility] Comment on above: Performed By: #### C MP ####[facility] Pdmfwmncxo1544 [place] [phone]. Airam Tripathi ALT [Catalytic activity/Vol] 21 U/L Normal 14-59 [facility] Comment on above: Performed By: #### C MP ####[facility] Pdfiiuolrk3632 [place] [phone]. Airam Tripathi Anion gap [Moles/Vol] 12.2 mmol/L Normal [facility] Comment on above: Performed By: #### C MP ####[facility] Urxxyqullh6526 [place], [place] [address]Vy. Airam Tripathi AST [Catalytic activity/Vol] 21 U/L Normal 15-37 [facility] Comment on above: Performed By: #### C MP ####[facility] Gtxweddwmf2931 [place] [phone]. Airam Tripathi Bilirubin [Mass/Vol] 0.2 mg/dL Normal 0.2-1.0 [facility] Comment on above: Performed By: #### C MP ####[facility] Xqaetaoqrz4437 [place] [phone]. Airam Tripathi Calcium [Mass/Vol] 8.4 mg/dL Critically low 8.5-10.1 [facility] Comment on above: Performed By: #### C MP ####[facility] Zsmnvoyncy6534 [place] [phone]. Airam Tripathi Chloride [Moles/Vol] 103 mmol/L Normal 98-107 [facility] Comment on above: Performed By: #### C MP ####[facility] Gyaltgufjc2417 [place] [phone]. Airam Tripathi CO2 [Moles/Vol] 24.4 mmol/L Normal 21.0-32.0 [facility] Comment on above: Performed By: #### C MP ####[facility] Lzhlxsgcls6911 [place] [phone]. Airam Tripathi Creatinine [Mass/Vol] 1.11 mg/dL Critically high 0.55-1.02 [facility] Comment on above: Performed By: #### C MP ####[facility] Egnxnkxhnx0093 [place] [id number]. Airam Tripathi EGFR-AF LATVIAN >60 Normal >=60 [facility] Comment on above: Performed By: #### C MP ####[facility] Pffjxgwmac4502 [place] [phone]. Airam Tripathi EGFR-NON AF LATVIAN 50 mL/min/1.73m2 Critically low >=60 [facility] Comment on above: Performed By: #### C MP ####[facility] Vfqnervigv2818 [place] [phone]. Airam Tripathi Globulin (S) [Mass/Vol] 3.2 g/dL Normal [facility] Comment on above: Performed By: #### C MP ####[facility] Pseixlacii1431 [place] [address]Dr. Airam Tripathi Glucose [Mass/Vol] 84 mg/dL Normal 74-106 [facility] Comment on above: Performed By: #### C MP ####[facility] Zricegvlqr2553 [place] [address]Dr. Airam Tripathi Potassium [Moles/Vol] 4.6 mmol/L Normal 3.5-5.1 [facility] Comment on above: Performed By: #### C MP ####[facility] Lifrlhkwjy2417 [place] [address]Dr. Airam Tripathi Protein [Mass/Vol] 6.5 g/dL Normal 6.4-8.2 [facility] Comment on above: Performed By: #### C MP ####[facility] Nwrdznfafu7725 [place] [address]Dr. Airam Tripathi Sodium [Moles/Vol] 135 mmol/L Critically low 136-145 [facility] Comment on above: Performed By: #### C MP ####[facility] Uzjrmdqlig3352 [place] [address]Dr. Airam Tripathi Urea nitrogen [Mass/Vol] 39.0 mg/dL Critically high 7.0-18.0 [facility] Comment on above: Performed By: #### C MP ####[facility] Jgsunjimws5269 [place] [address]Dr. Airam Tripathi Urea nitrogen/Creatinine [Mass ratio] 35.1 mg/mg Normal [facility] Comment on above: Performed By: #### C MP ####[facility] Rpojvxwdkt4271 [place] [address]Dr. Airam Tripathi OSMOLALITYon 03-17-2022 Osmolality [Osmolality] 277 mosm/kg Normal 275-295 [facility] Comment on above: Performed By: #### O SMO ####[facility] Kdrceyjthb2800 [place] [address]Dr. Airam Tripathi CBC AUTO DIFFon 03-15-2022 BASO # 0.0 103/ul Normal 0.0-0.1 [facility] Comment on above: Performed By: #### C BC ####[facility] Sovxbamgop8174[address] [place], [place] [address]Dr. Selenaneil Tripathi Basophils/100 WBC (Bld) 0.4 % Normal 0.2-2.0 [facility] Comment on above: Performed By: #### C BC ####[facility] Twhacxiyll5525[address] [place], [place] [address]Dr. Airam Tripathi EO # 0.1 103/ul Normal 0.0-0.7 [facility] Comment on above: Performed By: #### C BC ####[facility] Rdtmbtoyla6484[address] [place], [place] [address]Dr. Selenaneil Tripathi Eosinophils/100 WBC (Bld) 2.4 % Normal 0.9-7.0 [facility] Comment on above: Performed By: #### C BC ####[facility] Pjstcqhmae2190[address] [place], [place] [address]Dr. Airam Tripathi Erythrocyte distribution width (RBC) [Ratio] 13.9 % Normal 11.0-15.0 [facility] Comment on above: Performed By: #### C BC ####[facility] Bhexcaofmm419[address] [place], [place] [address]Dr. Airam Tripathi Hematocrit (Bld) [Volume fraction] 31.2 % Critically low 36.0-48.0 [facility] Comment on above: Performed By: #### C BC ####[facility] Xllfuiczfu7108[address] [place], [place] [address]Dr. Airam Tripathi Hemoglobin (Bld) [Mass/Vol] 9.9 g/dL Critically low 12.0-16.0 [facility] Comment on above: Performed By: #### C BC ####[facility] Xlawwumjuy3522 [place] [phone]. Airam Tripathi IG # 0.03 10e3/ul Normal 0.00-0.03 [facility] Comment on above: Performed By: #### C BC ####[facility] Jnfqqmlrtd2445 [place] [phone]. Airam Tripathi IG % 0.6 % Critically high 0.0-0.5 [facility] Comment on above: Performed By: #### C BC ####[facility] Zgdupkgfcp3749 [place] [address]Dr. Airam Tripathi LYMPH # 1.5 103/ul Normal 1.2-3.8 [facility] Comment on above: Performed By: #### C BC ####[facility] Gfxkybhqcw6812 [place] [address]Dr. Airam Tripathi Lymphocytes/100 WBC (Bld) 29.4 % Normal 20.5-60.0 [facility] Comment on above: Performed By: #### C BC ####[facility] Uduwzqtzhq1064 [place] [address]Dr. Airam Tripathi MANUAL DIFF REQ NO Normal [facility] Comment on above: Performed By: #### C BC ####[facility] Tjtfhfclso67[address] [place], [place] [address]Dr. Airam Tripathi MCH (RBC) [Entitic mass] 30.5 pg Normal 26.7-34.0 [facility] Comment on above: Performed By: #### C BC ####[facility] Qppwgjbuti3065[address] [place], [place] [address]Dr. Airam Tripathi MCHC (RBC) [Mass/Vol] 31.7 g/dL Normal 29.9-35.2 [facility] Comment on above: Performed By: #### C BC ####[facility] Umlnqszqml5255[address] [place], [place] [address]Dr. Airam Tripathi MCV (RBC) [Entitic vol] 96.0 fL Normal 81.0-99.0 [facility] Comment on above: Performed By: #### C BC ####[facility] Qznlmehnjr9464 [place] [phone]. Airam Tripathi MONO # 0.4 103/ul Normal 0.3-0.8 [facility] Comment on above: Performed By: #### C BC ####[facility] Tfjswsvphu3078 [place] [phone]. Airam Tripathi Monocytes/100 WBC (Bld) 7.0 % Normal 1.7-12.0 [facility] Comment on above: Performed By: #### C BC ####[facility] Duhpxhfjpj7633 [place] [id number]. Airam Tripathi NEUT # 3.0 103/ul Normal 1.4-6.5 [facility] Comment on above: Performed By: #### C BC ####[facility] Sdpjnxkxpy05[address] [place], [place] [address]Dr. Airam Tripathi Neutrophils/100 WBC (Bld) 60.2 % Normal 43.0-75.0 [facility] Comment on above: Performed By: #### C BC ####[facility] Sxjggmkntj8474[address] [place], [place] [address]Dr. Airam Tripathi Platelet mean volume (Bld) [Entitic vol] 9.6 fL Normal 9.5-13.5 [facility] Comment on above: Performed By: #### C BC ####[facility] Exkfvlszwe7423[address] [place], [place] [address]Dr. Airam Tripathi PLT 258 103/ul Normal 150-450 [facility] Comment on above: Performed By: #### C BC ####[facility] Pusuxzgydk[address] [place], [place] [address]Dr. Airam Tripathi RBC 3.25 106/ul Critically low 4.20-5.40 [facility] Comment on above: Performed By: #### C BC ####[facility] Dqpapvpcan1312[address] [place], [place] [address]Dr. Airam Tripathi WBC 5.0 103/ul Normal 4.0-11.0 [facility] Comment on above: Performed By: #### C BC ####[facility] Ysnjbsyiwo009[address] [place], [place] [address]Dr. Airam Tripathi PROF 14(COMP METB)on 022 Albumin [Mass/Vol] 3.3 g/dL Critically low 3.4-5.0 [facility] Comment on above: Performed By: #### C MP ####[facility] Zdmmybxcpn59[address] [place], [place] [address]Dr. Airam Tripathi Albumin/Globulin [Mass ratio] 1.1 {ratio} Normal [facility] Comment on above: Performed By: #### C MP ####[facility] Pfvzcckaws9874[address] [place], [place] [address]Dr. Airam Tripathi ALP [Catalytic activity/Vol] 106 U/L Normal 46-116 [facility] Comment on above: Performed By: #### C MP ####[facility] Touxknekrw6138[address] [place], [place] [address]Dr. Airam Tripathi ALT [Catalytic activity/Vol] 22 U/L Normal 14-59 [facility] Comment on above: Performed By: #### C MP ####[facility] Etoyiueihh350[address] [place], [place] [address]Dr. Airam Tripathi Anion gap [Moles/Vol] 11.4 mmol/L Normal [facility] Comment on above: Performed By: #### C MP ####[facility] Ejcdbfiuyr259[address] [place], [place] [address]Dr. Airam Tripathi AST [Catalytic activity/Vol] 22 U/L Normal 15-37 [facility] Comment on above: Performed By: #### C MP ####[facility] Dmewfushvg107[address] [place], [place] [address]Dr. Airam Tripathi Bilirubin [Mass/Vol] 0.3 mg/dL Normal 0.2-1.0 [facility] Comment on above: Performed By: #### C MP ####[facility] Akheklcjgx319[address] [place], [place] [address]Dr. Airam Tripathi Calcium [Mass/Vol] 8.1 mg/dL Critically low 8.5-10.1 [facility] Comment on above: Performed By: #### C MP ####[facility] Wydtonajqz3430 [place] [id number]. Airam Tripathi Chloride [Moles/Vol] 100 mmol/L Normal 98-107 [facility] Comment on above: Performed By: #### C MP ####[facility] Fcddrelako0987 [place] [phone]. Airam Tripathi CO2 [Moles/Vol] 25.6 mmol/L Normal 21.0-32.0 [facility] Comment on above: Performed By: #### C MP ####[facility] Qwyfhuqtfg264[address] [place], [place] [address]Dr. Airam Tripahti Creatinine [Mass/Vol] 1.21 mg/dL Critically high 0.55-1.02 [facility] Comment on above: Performed By: #### C MP ####[facility] Keqkpjyhdq88[address] [place], [place] [address]Dr. Airam Deuce EGFR-AF LATVIAN 55 mL/min/1.73m2 Critically low >=60 [facility] Comment on above: Performed By: #### C MP ####[facility] Zrfjkempcx9[address] [place], [place] [address]Dr. Airam Tripathi EGFR-NON AF LATVIAN 45 mL/min/1.73m2 Critically low >=60 [facility] Comment on above: Performed By: #### C MP ####[facility] Btckxwrztz66[address] [place], [place] [address]Dr. Airam Tripathi Globulin (S) [Mass/Vol] 3.0 g/dL Normal [facility] Comment on above: Performed By: #### C MP ####[facility] Ynkpnzsron9385[address] [place], [place] [address]Dr. Airam Tripathi Glucose [Mass/Vol] 84 mg/dL Normal 74-106 [facility] Comment on above: Performed By: #### C MP ####[facility] Xrplsbdtug2970[address] [place], [place] [address]Dr. Airam Tripathi Potassium [Moles/Vol] 4.0 mmol/L Normal 3.5-5.1 [facility] Comment on above: Performed By: #### C MP ####[facility] Wpzdqqtjfm1064 [place] [id number]. Airam Tripathi Protein [Mass/Vol] 6.3 g/dL Critically low 6.4-8.2 Th [facility] Comment on above: Performed By: #### C MP ####[facility] Xquiayvxam[address] [place], [place] [address]Dr. Airam Tripathi Sodium [Moles/Vol] 133 mmol/L Critically low 136-145 Th [facility] Comment on above: Performed By: #### C MP ####[facility] Ucvtocjwck[address] [place], [place] [address]Dr. Airam Tripathi Urea nitrogen [Mass/Vol] 29.0 mg/dL Critically high 7.0-18.0 [facility] Comment on above: Performed By: #### C MP ####[facility] Hmhxmejhxl26[address] [place], [place] [address]Dr. Aiarm Deuce Urea nitrogen/Creatinine [Mass ratio] 24.0 mg/mg Normal [facility] Comment on above: Performed By: #### C MP ####[facility] Eqguqcvaza[address] [place], [place] [address]Dr. Airam Tripathi OSMOLALITYon 03-12-2022 Osmolality [Osmolality] 285 mosm/kg Normal 275-295 [facility] Comment on above: Performed By: #### O SMO ####[facility] Rlrflfiatr[address] [place], [place] [address]Dr. Airam Deuce CBC AUTO DIFFon 03-10-2022 BASO # 0.0 103/ul Normal 0.0-0.1 [facility] Comment on above: Performed By: #### C BC ####[facility] Zgkeezpgdm[address] [place], [place] [address]Dr. Airam Deuce Basophils/100 WBC (Bld) 0.3 % Normal 0.2-2.0 [facility] Comment on above: Performed By: #### C BC ####[facility] Yndpdivghk825[address] [place], [place] [address]Dr. Airam Tripathi EO # 0.2 103/ul Normal 0.0-0.7 [facility] Comment on above: Performed By: #### C BC ####[facility] Ttykvchpih2006 [place] [id number]. Airam Tripathi Eosinophils/100 WBC (Bld) 2.7 % Normal 0.9-7.0 [facility] Comment on above: Performed By: #### C BC ####[facility] Pyjqhvoewl[address] [place], [place] [address]Dr. Airam Tripathi Erythrocyte distribution width (RBC) [Ratio] 14.4 % Normal 11.0-15.0 [facility] Comment on above: Performed By: #### C BC ####[facility] Mumqxktooi4930[address] [place], [place] [address]Dr. Airam Tripathi Hematocrit (Bld) [Volume fraction] 32.5 % Critically low 36.0-48.0 [facility] Comment on above: Performed By: #### C BC ####[facility] Smteesycpi711[address] [place], [place] [address]Dr. Airam Tripathi Hemoglobin (Bld) [Mass/Vol] 10.1 g/dL Critically low 12.0-16.0 [facility] Comment on above: Performed By: #### C BC ####[facility] Dpnxqvzcso422[address] [place], [place] [address]Dr. Airam Tripathi IG # 0.03 10e3/ul Normal 0.00-0.03 [facility] Comment on above: Performed By: #### C BC ####[facility] Tammrvgwsp4[address] [place], [place] [address]Dr. Airam Tripathi IG % 0.4 % Normal 0.0-0.5 [facility] Comment on above: Performed By: #### C BC ####[facility] Hsglghfykv7[address] [place], [place] [address]Dr. Airam Tripathi LYMPH # 1.4 103/ul Normal 1.2-3.8 [facility] Comment on above: Performed By: #### C BC ####[facility] Ivqzgvcgdn0201[address] [place], [place] [address]Dr. Airam Tripathi Lymphocytes/100 WBC (Bld) 19.4 % Critically low 20.5-60.0 [facility] Comment on above: Performed By: #### C BC ####[facility] Spcqegkvvz8698 [place] [address]Dr. Selenaneil Tripathi MANUAL DIFF REQ NO Normal [facility] Comment on above: Performed By: #### C BC ####[facility] Jshlnykrix9525 [place] [id number]. Selenaneli Tripathi MCH (RBC) [Entitic mass] 30.6 pg Normal 26.7-34.0 [facility] Comment on above: Performed By: #### C BC ####[facility] Znamzdrkea2761 [place] [id number]. Airam Deuce MCHC (RBC) [Mass/Vol] 31.1 g/dL Normal 29.9-35.2 [facility] Comment on above: Performed By: #### C BC ####[facility] Ownujtiaxl624[address] [place], [place] [address]Dr. Airam Tripathi MCV (RBC) [Entitic vol] 98.5 fL Normal 81.0-99.0 [facility] Comment on above: Performed By: #### C BC ####[facility] Zimyfootbg254[address] [place], [place] [address]Dr. Airam Tripathi MONO # 0.5 103/ul Normal 0.3-0.8 [facility] Comment on above: Performed By: #### C BC ####[facility] Smybmqgxio6413[address] [place], [place] [address]Dr. Airam Tripathi Monocytes/100 WBC (Bld) 6.7 % Normal 1.7-12.0 [facility] Comment on above: Performed By: #### C BC ####[facility] Jpuhbrnyrc080[address] [place], [place] [address]Dr. Airam Tripathi NEUT # 5.2 103/ul Normal 1.4-6.5 [facility] Comment on above: Performed By: #### C BC ####[facility] Qgunseynfx125[address] [place], [place] [id number]. Airam Tripathi Neutrophils/100 WBC (Bld) 70.5 % Normal 43.0-75.0 [facility] Comment on above: Performed By: #### C BC ####[facility] Geqgguwidq0679 [place] [address]Dr. Selenaneil Deuce Platelet mean volume (Bld) [Entitic vol] 9.8 fL Normal 9.5-13.5 [facility] Comment on above: Performed By: #### C BC ####[facility] Ppivclgnsv2840 [place] [address]Dr. Airam Tripathi PLT 277 103/ul Normal 150-450 [facility] Comment on above: Performed By: #### C BC ####[facility] Hjjylapjiw5163 [place] [address]Dr. Airam Tripathi RBC 3.30 106/ul Critically low 4.20-5.40 [facility] Comment on above: Performed By: #### C BC ####[facility] Jufmcxfurv8[address] [place], [place] [address]Dr. Airam Tripathi WBC 7.4 103/ul Normal 4.0-11.0 [facility] Comment on above: Performed By: #### C BC ####[facility] Orqrtseqou[address] [place], [place] [address]Dr. Airam Tripathi PROF 14(COMP METB)on 022 Albumin [Mass/Vol] 3.6 g/dL Normal 3.4-5.0 [facility] Comment on above: Performed By: #### C MP ####[facility] Psrvdtdjsb60[address] [place], [place] [address]Dr. Airam Tripathi Albumin/Globulin [Mass ratio] 1.1 {ratio} Normal [facility] Comment on above: Performed By: #### C MP ####[facility] Jnuzvsqqze2740 [place] [address]Dr. Airam Tripathi ALP [Catalytic activity/Vol] 112 U/L Normal 46-116 [facility] Comment on above: Performed By: #### C MP ####[facility] Gcunaquajt2047 [place] [address]Dr. Airam Tripathi ALT [Catalytic activity/Vol] 26 U/L Normal 14-59 [facility] Comment on above: Performed By: #### C MP ####[facility] Qnelwrvpyd0303 [place] [phone]. Airam Tripathi Anion gap [Moles/Vol] 12.0 mmol/L Normal Th e [facility] Comment on above: Performed By: #### C MP ####[facility] Utdqgbmfux7241 [place] [phone]. Airam Tripathi AST [Catalytic activity/Vol] 25 U/L Normal 15-37 [facility] Comment on above: Performed By: #### C MP ####[facility] Gmezxcebvg3199 [place] [phone]. Airam Tripathi Bilirubin [Mass/Vol] 0.4 mg/dL Normal 0.2-1.0 [facility] Comment on above: Performed By: #### C MP ####[facility] Cqxglytsqv192[address] [place], [place] [address]Dr. Airam Tripathi Calcium [Mass/Vol] 8.9 mg/dL Normal 8.5-10.1 [facility] Comment on above: Performed By: #### C MP ####[facility] Vzkdovmihb1465 [place] [phone]. Airam Tripathi Chloride [Moles/Vol] 101 mmol/L Normal 98-107 [facility] Comment on above: Performed By: #### C MP ####[facility] Nmzefnqymf7084 [place] [phone]. Airam Tripathi CO2 [Moles/Vol] 24.0 mmol/L Normal 21.0-32.0 [facility] Comment on above: Performed By: #### C MP ####[facility] Msexqkgnvz6547 [place] [phone]. Airam Tripathi Creatinine [Mass/Vol] 1.51 mg/dL Critically high 0.55-1.02 [facility] Comment on above: Performed By: #### C MP ####[facility] Kqibcjocfq5174 [place] [phone]. Airam Tripathi EGFR-AF LATVIAN 43 mL/min/1.73m2 Critically low >=60 [facility] Comment on above: Performed By: #### C MP ####[facility] Ruvywvogex2504 [place] [phone]. Airam Tripathi EGFR-NON AF LATVIAN 35 mL/min/1.73m2 Critically low >=60 [facility] Comment on above: Performed By: #### C MP ####[facility] Jsjsvhlxqb7485 [place] [phone]. Airam Tripathi Globulin (S) [Mass/Vol] 3.2 g/dL Normal [facility] Comment on above: Performed By: #### C MP ####[facility] Wbdolvkffg5395 [place] [phone]. Airam Tripathi Glucose [Mass/Vol] 82 mg/dL Normal 74-106 [facility] Comment on above: Performed By: #### C MP ####[facility] Cbpwlkhmtu2769 [place] [phone]. Airam Tripathi Potassium [Moles/Vol] 4.0 mmol/L Normal 3.5-5.1 [facility] Comment on above: Performed By: #### C MP ####[facility] Qfbceicdoh6903 [place] [phone]. Airam Tripathi Protein [Mass/Vol] 6.8 g/dL Normal 6.4-8.2 [facility] Comment on above: Performed By: #### C MP ####[facility] Ewploztwsc9148 [place] [phone]. Airam Tripathi Sodium [Moles/Vol] 133 mmol/L Critically low 136-145 [facility] Comment on above: Performed By: #### C MP ####[facility] Yzpeecskoi9294 [place] [phone]. Airam Tripathi Urea nitrogen [Mass/Vol] 37.0 mg/dL Critically high 7.0-18.0 [facility] Comment on above: Performed By: #### C MP ####[facility] Wduqqwryek4289 [place] [phone]. Airam Tripathi Urea nitrogen/Creatinine [Mass ratio] 24.5 mg/mg Normal [facility] Comment on above: Performed By: #### C MP ####[facility] Kxqhyedhzj4578 [place] [phone]. Airam Tripathi OSMOLALITYon 03-07-2022 Osmolality [Osmolality] 284 mosm/kg Normal 275-295 [facility] Comment on above: Performed By: #### O SMO ####[facility] Eemxfwkejg[address] [place], [place] [address]Dr. Airam Deuce CBC AUTO DIFFon 03-04-2022 BASO # 0.0 103/ul Normal 0.0-0.1 [facility] Comment on above: Performed By: #### C BC ####[facility] Jqmeguyyej6779 [place] [address]Dr. Airam Tripathi Basophils/100 WBC (Bld) 0.3 % Normal 0.2-2.0 [facility] Comment on above: Performed By: #### C BC ####[facility] Gnygyomqzp[address] [place], [place] [address]Dr. Airam Tripathi EO # 0.1 103/ul Normal 0.0-0.7 [facility] Comment on above: Performed By: #### C BC ####[facility] Ppxyqzzqcx35[address] [place], [place] [address]Dr. Airam Tripathi Eosinophils/100 WBC (Bld) 2.0 % Normal 0.9-7.0 [facility] Comment on above: Performed By: #### C BC ####[facility] Dcxylpemtv[address] [place], [place] [address]Dr. Airam Tripathi Erythrocyte distribution width (RBC) [Ratio] 14.5 % Normal 11.0-15.0 [facility] Comment on above: Performed By: #### C BC ####[facility] Kqgkeomles[address] [place], [place] [address]Dr. Airam Tripathi Hematocrit (Bld) [Volume fraction] 35.4 % Critically low 36.0-48.0 [facility] Comment on above: Performed By: #### C BC ####[facility] Zsnqbdpame[address] [place], [place] [address]Dr. Airam Tripathi Hemoglobin (Bld) [Mass/Vol] 11.0 g/dL Critically low 12.0-16.0 The [facility] Comment on above: Performed By: #### C BC ####[facility] Nzvnhssfdl3716 [place] [address]Dr. Airam Tripathi IG # 0.03 10e3/ul Normal 0.00-0.03 [facility] Comment on above: Performed By: #### C BC ####[facility] Zrdsqxthcp2537 [place] [address]Dr. Airam Tripathi IG % 0.4 % Normal 0.0-0.5 [facility] Comment on above: Performed By: #### C BC ####[facility] Hnkeqnjxoh2612 [place] [address]Dr. Airam Tripathi LYMPH # 1.7 103/ul Normal 1.2-3.8 [facility] Comment on above: Performed By: #### C BC ####[facility] Udtkwrgigf4535 [place] [address]DrKianna Tripathi Lymphocytes/100 WBC (Bld) 23.8 % Normal 20.5-60.0 [facility] Comment on above: Performed By: #### C BC ####[facility] Wwetkxpocb4119 [place] [address]DrKianna Tripathi MANUAL DIFF REQ NO Normal [facility] Comment on above: Performed By: #### C BC ####[facility] Zhfgvkebzc1518 [place] [address]Dr. Airam Tripathi MCH (RBC) [Entitic mass] 30.0 pg Normal 26.7-34.0 [facility] Comment on above: Performed By: #### C BC ####[facility] Rnwcesvapg[address] [place], [place] [address]Dr. Airam Tripathi MCHC (RBC) [Mass/Vol] 31.1 g/dL Normal 29.9-35.2 [facility] Comment on above: Performed By: #### C BC ####[facility] Vvygcnpxxq8208 [place] [address]Dr. Airam Tripathi MCV (RBC) [Entitic vol] 96.5 fL Normal 81.0-99.0 [facility] Comment on above: Performed By: #### C BC ####[facility] Womarzqmbt7540 [place] [phone]. Airam Tripathi MONO # 0.5 103/ul Normal 0.3-0.8 [facility] Comment on above: Performed By: #### C BC ####[facility] Rrsmcjfxnz1835 [place] [phone]. Airam Tripathi Monocytes/100 WBC (Bld) 6.6 % Normal 1.7-12.0 [facility] Comment on above: Performed By: #### C BC ####[facility] Uoxsetyfcn7878 [place] [phone]. Airam Tripathi NEUT # 4.7 103/ul Normal 1.4-6.5 [facility] Comment on above: Performed By: #### C BC ####[facility] Eevjqjowzc9378 [place] [address]Dr. Airam Tripathi Neutrophils/100 WBC (Bld) 66.9 % Normal 43.0-75.0 [facility] Comment on above: Performed By: #### C BC ####[facility] Qadavctlek7553 [place] [address]Dr. Airam Tripathi Platelet mean volume (Bld) [Entitic vol] 10.2 fL Normal 9.5-13.5 [facility] Comment on above: Performed By: #### C BC ####[facility] Nmpencxrlt5087 [place] [address]Dr. Airam Tripathi PLT 270 103/ul Normal 150-450 [facility] Comment on above: Performed By: #### C BC ####[facility] Vwwlokzetm3265 [place] [phone]. Airam Tripathi RBC 3.67 106/ul Critically low 4.20-5.40 [facility] Comment on above: Performed By: #### C BC ####[facility] Uifvxmcltq5155 [place] [phone]. Airam Tripathi WBC 7.0 103/ul Normal 4.0-11.0 [facility] Comment on above: Performed By: #### C BC ####[facility] Zabasbsjez5895 [place] [address]Dr. Airam Tripathi PROF 14(COMP METB)on 022 Albumin [Mass/Vol] 3.3 g/dL Critically low 3.4-5.0 [facility] Comment on above: Performed By: #### C MP ####[facility] Bwdbmqcnde4284 [place] [address]Dr. Airam Tripathi Albumin/Globulin [Mass ratio] 1.0 {ratio} Normal [facility] Comment on above: Performed By: #### C MP ####[facility] Kjcbbcwqln8[address] [place], [place] [address]Dr. Airam Tripathi ALP [Catalytic activity/Vol] 107 U/L Normal 46-116 [facility] Comment on above: Performed By: #### C MP ####[facility] Ulneednqei[address] [place], [place] [address]Dr. Airam Tripathi ALT [Catalytic activity/Vol] 23 U/L Normal 14-59 [facility] Comment on above: Performed By: #### C MP ####[facility] Hwvnyusdsw[address] [place], [place] [address]Dr. Airam Tripathi Anion gap [Moles/Vol] 13.0 mmol/L Normal [facility] Comment on above: Performed By: #### C MP ####[facility] Wrnckbkrqa[address] [place], [place] [address]Dr. Airam Tripathi AST [Catalytic activity/Vol] 30 U/L Normal 15-37 [facility] Comment on above: Performed By: #### C MP ####[facility] Xetjygogxc729[address] [place], [place] [address]Dr. Airam Tripathi Bilirubin [Mass/Vol] 0.2 mg/dL Normal 0.2-1.0 [facility] Comment on above: Performed By: #### C MP ####[facility] [address]zixnhnq98[address] [place], [place] [address]Dr. Airam Tripathi Calcium [Mass/Vol] 8.8 mg/dL Normal 8.5-10.1 [facility] Comment on above: Performed By: #### C MP ####[facility] Zkvagolkql7754 [place] [phone]. Airam Tripathi Chloride [Moles/Vol] 103 mmol/L Normal 98-107 [facility] Comment on above: Performed By: #### C MP ####[facility] Kgbdsfcxdf8302 [place] [phone]. Airam Tripathi CO2 [Moles/Vol] 24.9 mmol/L Normal 21.0-32.0 [facility] Comment on above: Performed By: #### C MP ####[facility] Azsmihjouz9634 [place] [address]Dr. Airam Tripathi Creatinine [Mass/Vol] 1.06 mg/dL Critically high 0.55-1.02 [facility] Comment on above: Performed By: #### C MP ####[facility] Oacktfkbzg0161 [place] [address]Dr. Airam Tripathi EGFR-AF LATVIAN >60 Normal >=60 [facility] Comment on above: Performed By: #### C MP ####[facility] [address]gqracbf06[address] [place], [place] [address]Dr. Airam Tripathi EGFR-NON AF LATVIAN 53 mL/min/1.73m2 Critically low >=60 [facility] Comment on above: Performed By: #### C MP ####[facility] Iyushlrvip3764 [place] [address]Dr. Airam Tripathi Globulin (S) [Mass/Vol] 3.2 g/dL Normal [facility] Comment on above: Performed By: #### C MP ####[facility] Zmflxuhfes7392 [place] [address]Dr. Airam Tripathi Glucose [Mass/Vol] 91 mg/dL Normal 74-106 [facility] Comment on above: Performed By: #### C MP ####[facility] Phggjlijjd9267 [place] [address]Dr. Airam Tripathi Potassium [Moles/Vol] 3.9 mmol/L Normal 3.5-5.1 [facility] Comment on above: Performed By: #### C MP ####[facility] Feyfpnjblx0037 [place] [address]Dr. Airam Deuce Protein [Mass/Vol] 6.5 g/dL Normal 6.4-8.2 [facility] Comment on above: Performed By: #### C MP ####[facility] Orazpezfvl3297 [place] [address]Dr. Selenaneil Tripathi Sodium [Moles/Vol] 137 mmol/L Normal 136-145 [facility] Comment on above: Performed By: #### C MP ####[facility] Nillnqgbcm947[address] [place], [place] [address]Dr. Airam Tripathi Urea nitrogen [Mass/Vol] 27.0 mg/dL Critically high 7.0-18.0 [facility] Comment on above: Performed By: #### C MP ####[facility] Yomazulpod099[address] [place], [place] [address]Dr. Airam Tripathi Urea nitrogen/Creatinine [Mass ratio] 25.5 mg/mg Normal [facility] Comment on above: Performed By: #### C MP ####[facility] Mflvahdcqw[address] [place], [place] [address]Dr. Airam Deuce OSMOLALITYon 03-03-2022 Osmolality [Osmolality] 383 mosm/kg Invalid Interpretation Code [id number] [facility] Comment on above: Result Comment: Ve rified by repeat analysis Performed By: #### O SMO ####[facility] Gwoixgbpsl[address] [place], [place] [address]Dr. Airam Tripathi CBC AUTO DIFFon 02-22-2022 BASO # 0.0 103/ul Normal 0.0-0.1 [facility] Comment on above: Performed By: #### C BC ####[facility] Vdrfbtnsmm9[address] [place], [place] [address]Dr. Airam Tripathi Basophils/100 WBC (Bld) 0.4 % Normal 0.2-2.0 [facility] Comment on above: Performed By: #### C BC ####[facility] Zqdxlcflvk[address]269[address] [place], [place] [address]Dr. Airam Tripathi EO # 0.2 103/ul Normal 0.0-0.7 [facility] Comment on above: Performed By: #### C BC ####[facility] Lsmuxcogun5202 [place] [address]Dr. Airam Tripathi Eosinophils/100 WBC (Bld) 3.9 % Normal 0.9-7.0 [facility] Comment on above: Performed By: #### C BC ####[facility] Lixabkrnry0[address] [place], [place] [address]Dr. Airam Tripathi Erythrocyte distribution width (RBC) [Ratio] 13.9 % Normal 11.0-15.0 [facility] Comment on above: Performed By: #### C BC ####[facility] Oervmacanw55[address] [place], [place] [address]Dr. Airam Tripathi Hematocrit (Bld) [Volume fraction] 32.7 % Critically low 36.0-48.0 [facility] Comment on above: Performed By: #### C BC ####[facility] Ijcjrgdjch8[address] [place], [place] [address]Dr. Airam Tripathi Hemoglobin (Bld) [Mass/Vol] 10.7 g/dL Critically low 12.0-16.0 [facility] Comment on above: Performed By: #### C BC ####[facility] Kkdxwbnwet2[address] [place], [place] [address]Dr. Airam Tripathi IG # 0.02 10e3/ul Normal 0.00-0.03 [facility] Comment on above: Performed By: #### C BC ####[facility] Gkghuciupw24[address] [place], [place] [address]Dr. Airam Tripathi IG % 0.4 % Normal 0.0-0.5 [facility] Comment on above: Performed By: #### C BC ####[facility] Mjwgtbhard23[address] [place], [place] [address]Dr. Airam Tripathi LYMPH # 1.2 103/ul Normal 1.2-3.8 [facility] Comment on above: Performed By: #### C BC ####[facility] Gcozhjbzxf649[address] [place], [place] [address]Dr. Airam Tripathi Lymphocytes/100 WBC (Bld) 25.0 % Normal 20.5-60.0 [facility] Comment on above: Performed By: #### C BC ####[facility] Smkgfahaei5856 [place] [address]Dr. Airam Tripathi MANUAL DIFF REQ NO Normal [facility] Comment on above: Performed By: #### C BC ####[facility] Lreiwvntvd8736 [place] [phone]. Airam Tripathi MCH (RBC) [Entitic mass] 30.7 pg Normal 26.7-34.0 [facility] Comment on above: Performed By: #### C BC ####[facility] Mectawmehu5998 [place] [address]Dr. Airam Tripathi MCHC (RBC) [Mass/Vol] 32.7 g/dL Normal 29.9-35.2 [facility] Comment on above: Performed By: #### C BC ####[facility] Yzwfrdwmux[address] [place], [place] [address]Dr. Airam Tripathi MCV (RBC) [Entitic vol] 93.7 fL Normal 81.0-99.0 [facility] Comment on above: Performed By: #### C BC ####[facility] Tbbagmntxs09[address] [place], [place] [address]Dr. Airam Tripathi MONO # 0.4 103/ul Normal 0.3-0.8 [facility] Comment on above: Performed By: #### C BC ####[facility] Ghncbtnnib95[address] [place], [place] [address]Dr. Airam Tripathi Monocytes/100 WBC (Bld) 7.5 % Normal 1.7-12.0 [facility] Comment on above: Performed By: #### C BC ####[facility] Krrkerdqax347[address] [place], [place] [address]DrKianna Tripathi NEUT # 3.1 103/ul Normal 1.4-6.5 [facility] Comment on above: Performed By: #### C BC ####[facility] Acbgbrpify[address] [place], [place] [address]Dr. Airam Tripathi Neutrophils/100 WBC (Bld) 62.8 % Normal 43.0-75.0 [facility] Comment on above: Performed By: #### C BC ####[facility] Vgayjyavgs5745 [place] [address]Dr. Airam Tripathi Platelet mean volume (Bld) [Entitic vol] 9.5 fL Normal 9.5-13.5 [facility] Comment on above: Performed By: #### C BC ####[facility] Exqhfdqreb1418 [place] [address]Dr. Airam Tripathi PLT 250 103/ul Normal 150-450 [facility] Comment on above: Performed By: #### C BC ####[facility] Ddtmibluta7192 [place] [address]Dr. Airam Tripathi RBC 3.49 106/ul Critically low 4.20-5.40 [facility] Comment on above: Performed By: #### C BC ####[facility] Jjinpqccpp6626 [place] [address]Dr. Airam Tripathi WBC 4.9 103/ul Normal 4.0-11.0 [facility] Comment on above: Performed By: #### C BC ####[facility] Feugondorj4648 [place] [address]DrKianna Tripathi PROF 14(COMP METB)on 022 Albumin [Mass/Vol] 3.3 g/dL Critically low 3.4-5.0 [facility] Comment on above: Performed By: #### C MP ####[facility] Nnwqtkbwcd6680 [place] [address]DrKianna Tripathi Albumin/Globulin [Mass ratio] 1.0 {ratio} Normal [facility] Comment on above: Performed By: #### C MP ####[facility] Hdfczldfzl2967 [place] [address]DrKianna Tripathi ALP [Catalytic activity/Vol] 127 U/L Critically high 46-116 [facility] Comment on above: Performed By: #### C MP ####[facility] Wqshgrxlnd8660 [place] [address]DrKianna Tripathi ALT [Catalytic activity/Vol] 22 U/L Normal 14-59 [facility] Comment on above: Performed By: #### C MP ####[facility] Lptikrtnxk5367 [place] [id number]. Airam Tripathi Anion gap [Moles/Vol] 11.9 mmol/L Normal [facility] Comment on above: Performed By: #### C MP ####[facility] Qu[address]qgnauk[address] [place] [address]Dr. Airam Tripathi AST [Catalytic activity/Vol] 21 U/L Normal 15-37 [facility] Comment on above: Performed By: #### C MP ####[facility] Xxjdyqsqqz1086 [place] [address]Dr. Airam Tripathi Bilirubin [Mass/Vol] 0.3 mg/dL Normal 0.2-1.0 [facility] Comment on above: Performed By: #### C MP ####[facility] Tstptjqwbe[address] [place], [place] [address]Dr. Airam Tripathi Calcium [Mass/Vol] 8.6 mg/dL Normal 8.5-10.1 [facility] Comment on above: Performed By: #### C MP ####[facility] Kzalfokfvg[address] [place], [place] [address]Dr. Airam Deuce Chloride [Moles/Vol] 105 mmol/L Normal 98-107 [facility] Comment on above: Performed By: #### C MP ####[facility] Hgdqkutzsp[address] [place], [place] [address]Dr. Airam Tripathi CO2 [Moles/Vol] 23.6 mmol/L Normal 21.0-32.0 [facility] Comment on above: Performed By: #### C MP ####[facility] Lfufgodzhc[address] [place], [place] [address]Dr. Airam Deuce Creatinine [Mass/Vol] 1.29 mg/dL Critically high 0.55-1.02 [facility] Comment on above: Performed By: #### C MP ####[facility] Btnqwdrbls[address] [place], [place] [address]Dr. Airam Deuce EGFR-AF LATVIAN 51 mL/min/1.73m2 Critically low >=60 [facility] Comment on above: Performed By: #### C MP ####[facility] Wtxfhoricf[address] [place] [id number]. Airam Tripathi EGFR-NON AF LATVIAN 42 mL/min/1.73m2 Critically low >=60 [facility] Comment on above: Performed By: #### C MP ####[facility] Oxxmzothji0689 [place] [phone]. Airam Tripathi Globulin (S) [Mass/Vol] 3.2 g/dL Normal [facility] Comment on above: Performed By: #### C MP ####[facility] Fgkumkwmdg49[address] [place] [address]Dr. Airam Tripathi Glucose [Mass/Vol] 94 mg/dL Normal 74-106 [facility] Comment on above: Performed By: #### C MP ####[facility] Biqtxbwqht23[address] [place] [address]Dr. Airam Tripathi Potassium [Moles/Vol] 3.5 mmol/L Normal 3.5-5.1 [facility] Comment on above: Performed By: #### C MP ####[facility] Gbruitwgkb[address] [place], [place] [address]Dr. Airam Tripathi Protein [Mass/Vol] 6.5 g/dL Normal 6.4-8.2 [facility] Comment on above: Performed By: #### C MP ####[facility] Ejylbwwvtq55[address] [place], [place] [address]Dr. Airam Tripathi Sodium [Moles/Vol] 137 mmol/L Normal 136-145 [facility] Comment on above: Performed By: #### C MP ####[facility] Efkrjtfavw490[address] [place], [place] [address]Dr. Airam Tripathi Urea nitrogen [Mass/Vol] 37.0 mg/dL Critically high 7.0-18.0 [facility] Comment on above: Performed By: #### C MP ####[facility] Xkrzgfvjbx557[address] [place], [place] [address]Dr. Airam Tripathi Urea nitrogen/Creatinine [Mass ratio] 28.7 mg/mg Normal [facility] Comment on above: Performed By: #### C MP ####[facility] Bofczsgrhq[address] [place] [id number]. Airam Tripathi OSMOLALITYon 02-20-2022 Osmolality [Osmolality] 283 mosm/kg Normal 275-295 [facility] Comment on above: Performed By: #### O SMO ####[facility] Ewizmjugoe[address] [place] [address]Dr. Airam Deuce CBC AUTO DIFFon 02-17-2022 BASO # 0.0 103/ul Normal 0.0-0.1 [facility] Comment on above: Performed By: #### C BC ####[facility] Vettnksrvb415[address] [place], [place] [address]Dr. Airam Tripathi Basophils/100 WBC (Bld) 0.3 % Normal 0.2-2.0 [facility] Comment on above: Performed By: #### C BC ####[facility] Stzpxcasnq4638[address] [place], [place] [address]Dr. Airam Tripathi EO # 0.1 103/ul Normal 0.0-0.7 [facility] Comment on above: Performed By: #### C BC ####[facility] Omxclepzla6789[address] [place], [place] [address]Dr. Airam Tripathi Eosinophils/100 WBC (Bld) 1.6 % Normal 0.9-7.0 [facility] Comment on above: Performed By: #### C BC ####[facility] Gnbwujrjlx5650[address] [place], [place] [address]Dr. Airam Tripathi Erythrocyte distribution width (RBC) [Ratio] 13.4 % Normal 11.0-15.0 [facility] Comment on above: Performed By: #### C BC ####[facility] Uspzajmika[address] [place], [place] [address]Dr. Airam Tripathi Hematocrit (Bld) [Volume fraction] 31.4 % Critically low 36.0-48.0 [facility] Comment on above: Performed By: #### C BC ####[facility] Frqaekcfkg1504[address] [place], [place] [address]Dr. Airam Tripathi Hemoglobin (Bld) [Mass/Vol] 10.0 g/dL Critically low 12.0-16.0 [facility] Comment on above: Performed By: #### C BC ####[facility] Drkwzsmhim34[address] [place] [address]Dr. Airam Tripathi IG # 0.03 10e3/ul Normal 0.00-0.03 [facility] Comment on above: Performed By: #### C BC ####[facility] Lexmvrytkf9[address] [place] [address]Dr. Airam Tripathi IG % 0.4 % Normal 0.0-0.5 [facility] Comment on above: Performed By: #### C BC ####[facility] Hnhbwvofes7[address] [place], [place] [address]Dr. Airam Tripathi LYMPH # 1.6 103/ul Normal 1.2-3.8 [facility] Comment on above: Performed By: #### C BC ####[facility] Wcwzbcscmz939[address] [place], [place] [address]Dr. Airam Tripathi Lymphocytes/100 WBC (Bld) 24.5 % Normal 20.5-60.0 [facility] Comment on above: Performed By: #### C BC ####[facility] Fuejnkgqnw9177[address] [place], [place] [address]Dr. Airam Tripathi MANUAL DIFF REQ NO Normal [facility] Comment on above: Performed By: #### C BC ####[facility] Hlzbglpxgq635[address] [place], [place] [address]Dr. Airam Tripathi MCH (RBC) [Entitic mass] 30.2 pg Normal 26.7-34.0 [facility] Comment on above: Performed By: #### C BC ####[facility] Czmumqwanw5935[address] [place], [place] [address]Dr. Airam Tripathi MCHC (RBC) [Mass/Vol] 31.8 g/dL Normal 29.9-35.2 [facility] Comment on above: Performed By: #### C BC ####[facility] Mqvyowmqoa7958[address] [place], [place] [address]Dr. Airam Tripathi MCV (RBC) [Entitic vol] 94.9 fL Normal 81.0-99.0 [facility] Comment on above: Performed By: #### C BC ####[facility] Jxhcdahzuk[address] [place] [id number]. Airam Tripathi MONO # 0.4 103/ul Normal 0.3-0.8 [facility] Comment on above: Performed By: #### C BC ####[facility] Tzubzvypzf07[address] [place] [id number]. Airam Tripathi Monocytes/100 WBC (Bld) 5.8 % Normal 1.7-12.0 [facility] Comment on above: Performed By: #### C BC ####[facility] Ldcxxjsfyz1089 [place] [id number]. Airam Tripathi NEUT # 4.5 103/ul Normal 1.4-6.5 [facility] Comment on above: Performed By: #### C BC ####[facility] Wgkairdxwa7101[address] [place], [place] [address]Dr. Airam Tripathi Neutrophils/100 WBC (Bld) 67.4 % Normal 43.0-75.0 [facility] Comment on above: Performed By: #### C BC ####[facility] Fpmirtdjei[address] [place], [place] [id number]. Airam Tripathi Platelet mean volume (Bld) [Entitic vol] 9.6 fL Normal 9.5-13.5 [facility] Comment on above: Performed By: #### C BC ####[facility] Wltnfmitvt6[address] [place] [id number]. Airam Tripathi PLT 251 103/ul Normal 150-450 [facility] Comment on above: Performed By: #### C BC ####[facility] Ycuhjbncla68[address] [place] [phone]. Airam Tripathi RBC 3.31 106/ul Critically low 4.20-5.40 [facility] Comment on above: Performed By: #### C BC ####[facility] Plmabtqklu44[address] [place] [phone]. Airam Tripathi WBC 6.7 103/ul Normal 4.0-11.0 [facility] Comment on above: Performed By: #### C BC ####[facility] Xzyjtkwwsf[address] [place] [address]Dr. Airam Tripathi PROF 14(COMP METB)on 022 Albumin [Mass/Vol] 3.5 g/dL Normal 3.4-5.0 [facility] Comment on above: Performed By: #### C MP ####[facility] Eindaitbrg[address] [place] [address]Dr. Airam Tripathi Albumin/Globulin [Mass ratio] 1.2 {ratio} Normal [facility] Comment on above: Performed By: #### C MP ####[facility] Vonnkymtxj708[address] [place], [place] [address]Dr. Airam Tripathi ALP [Catalytic activity/Vol] 130 U/L Critically high 46-116 [facility] Comment on above: Performed By: #### C MP ####[facility] Uindlqzxgg8730[address] [place], [place] [address]Dr. Airam Tripathi ALT [Catalytic activity/Vol] 18 U/L Normal 14-59 [facility] Comment on above: Performed By: #### C MP ####[facility] Djmwmczhze802[address] [place], [place] [address]Dr. Airam Tripathi Anion gap [Moles/Vol] 14.0 mmol/L Normal [facility] Comment on above: Performed By: #### C MP ####[facility] Kfxbyzhymy2929[address] [place], [place] [address]Dr. Airam Tripathi AST [Catalytic activity/Vol] 20 U/L Normal 15-37 [facility] Comment on above: Performed By: #### C MP ####[facility] Ccomopalfu6049[address] [place], [place] [address]Dr. Airam Tripathi Bilirubin [Mass/Vol] 0.3 mg/dL Normal 0.2-1.0 [facility] Comment on above: Performed By: #### C MP ####[facility] Tvybdapudi[address] [place], [place] [address]Dr. Airam Tripathi Calcium [Mass/Vol] 8.5 mg/dL Normal 8.5-10.1 [facility] Comment on above: Performed By: #### C MP ####[facility] Xwvtcvqbac27[address] [place] [address]Dr. Airam Tripathi Chloride [Moles/Vol] 100 mmol/L Normal 98-107 [facility] Comment on above: Performed By: #### C MP ####[facility] Zikuujbbwu5592 [place] [id number]. Airam Tripathi CO2 [Moles/Vol] 22.7 mmol/L Normal 21.0-32.0 [facility] Comment on above: Performed By: #### C MP ####[facility] Prnrzivdge1848[address] [place], [place] [address]Dr. Airam Tripathi Creatinine [Mass/Vol] 1.28 mg/dL Critically high 0.55-1.02 [facility] Comment on above: Performed By: #### C MP ####[facility] Wdskntcimw[address] [place], [place] [address]Dr. Airam Tripathi EGFR-AF LATVIAN 52 mL/min/1.73m2 Critically low >=60 [facility] Comment on above: Performed By: #### C MP ####[facility] Cydonqnfzt046[address] [place], [place] [address]Dr. Airam Tripathi EGFR-NON AF LATVIAN 43 mL/min/1.73m2 Critically low >=60 [facility] Comment on above: Performed By: #### C MP ####[facility] Yrtzzxqymj00[address] [place], [place] [address]Dr. Airam Tripathi Globulin (S) [Mass/Vol] 2.9 g/dL Normal [facility] Comment on above: Performed By: #### C MP ####[facility] Zcbglwvtdp96[address] [place], [place] [address]Dr. Airam Tripathi Glucose [Mass/Vol] 93 mg/dL Normal 74-106 [facility] Comment on above: Performed By: #### C MP ####[facility] Iluhepqzkd3137[address] [place], [place] [address]Dr. Airam Tripathi Potassium [Moles/Vol] 3.7 mmol/L Normal 3.5-5.1 [facility] Comment on above: Performed By: #### C MP ####[facility] Rgjmvetxsk7917 [place] [address]Dr. Airam Tripathi Protein [Mass/Vol] 6.4 g/dL Normal 6.4-8.2 [facility] Comment on above: Performed By: #### C MP ####[facility] Anyersczbh0867[address] [place], [place] [address]Dr. Airam Tripathi Sodium [Moles/Vol] 133 mmol/L Critically low 136-145 [facility] Comment on above: Performed By: #### C MP ####[facility] Ccygbfzfjq6255[address] [place], [place] [address]Dr. Airam Deuce Urea nitrogen [Mass/Vol] 44.0 mg/dL Critically high 7.0-18.0 [facility] Comment on above: Performed By: #### C MP ####[facility] Pbmmuvgtlo1600[address] [place], [place] [address]Dr. Airam Deuce Urea nitrogen/Creatinine [Mass ratio] 34.4 mg/mg Normal [facility] Comment on above: Performed By: #### C MP ####[facility] Genhvyfxwa7210[address] [place], [place] [address]Dr. Airam Tripathi OSMOLALITYon 02-10-2022 Osmolality [Osmolality] 288 mosm/kg Normal 275-295 [facility] Comment on above: Performed By: #### O SMO ####[facility] Nxpvrpktmz2664[address] [place], [place] [address]Dr. Airam Deuce CBC AUTO DIFFon 02-08-2022 BASO # 0.0 103/ul Normal 0.0-0.1 [facility] Comment on above: Performed By: #### C BC ####[facility] Krldqdinme045[address] [place], [place] [address]Dr. Airam Deuce Basophils/100 WBC (Bld) 0.3 % Normal 0.2-2.0 [facility] Comment on above: Performed By: #### C BC ####[facility] Qoxzndjfvu3730[address] [place], [place] [address]Dr. Airam Tripathi EO # 0.2 103/ul Normal 0.0-0.7 [facility] Comment on above: Performed By: #### C BC ####[facility] Wkpoqecckk13[address] [place] [id number]. Airam Tripathi Eosinophils/100 WBC (Bld) 2.1 % Normal 0.9-7.0 [facility] Comment on above: Performed By: #### C BC ####[facility] Sfpdeobfoo9623 [place] [id number]. Airam Tripathi Erythrocyte distribution width (RBC) [Ratio] 13.4 % Normal 11.0-15.0 [facility] Comment on above: Performed By: #### C BC ####[facility] Qjzfixyujz149[address] [place], [place] [address]Dr. Airam Tripathi Hematocrit (Bld) [Volume fraction] 35.1 % Critically low 36.0-48.0 [facility] Comment on above: Performed By: #### C BC ####[facility] Bqhynjmqog9375[address] [place], [place] [address]Dr. Airam Tripathi Hemoglobin (Bld) [Mass/Vol] 10.9 g/dL Critically low 12.0-16.0 [facility] Comment on above: Performed By: #### C BC ####[facility] Ujnlfzgomi206[address] [place], [place] [address]Dr. Airam Tripathi IG # 0.03 10e3/ul Normal 0.00-0.03 [facility] Comment on above: Performed By: #### C BC ####[facility] Upbwqpoxcj8299[address] [place], [place] [address]Dr. Airam Tripathi IG % 0.3 % Normal 0.0-0.5 [facility] Comment on above: Performed By: #### C BC ####[facility] Xhhzeghjaz06[address] [place], [place] [address]Dr. Airam Tripathi LYMPH # 1.3 103/ul Normal 1.2-3.8 [facility] Comment on above: Performed By: #### C BC ####[facility] Cfwballwqr7348[address] [place], [place] [address]Dr. Airam Tripathi Lymphocytes/100 WBC (Bld) 13.1 % Critically low 20.5-60.0 [facility] Comment on above: Performed By: #### C BC ####[facility] Raxoxzppti[address] [place] [address]Dr. Airam Tripathi MANUAL DIFF REQ NO Normal [facility] Comment on above: Performed By: #### C BC ####[facility] Megquvifdm6732 [place] [address]Dr. Airam Tripathi MCH (RBC) [Entitic mass] 30.4 pg Normal 26.7-34.0 [facility] Comment on above: Performed By: #### C BC ####[facility] Qjfyoinjlp6801 [place] [address]Dr. Airam Tripathi MCHC (RBC) [Mass/Vol] 31.1 g/dL Normal 29.9-35.2 [facility] Comment on above: Performed By: #### C BC ####[facility] Zydplfpnjn[address] [place], [place] [address]Dr. Airam Tripathi MCV (RBC) [Entitic vol] 98.0 fL Normal 81.0-99.0 [facility] Comment on above: Performed By: #### C BC ####[facility] Xeagqvhvpt[address] [place], [place] [address]DrKianna Tripathi MONO # 0.5 103/ul Normal 0.3-0.8 [facility] Comment on above: Performed By: #### C BC ####[facility] Zgtyzkkier[address] [place], [place] [address]Dr. Airam Tripathi Monocytes/100 WBC (Bld) 4.7 % Normal 1.7-12.0 [facility] Comment on above: Performed By: #### C BC ####[facility] Gewxlltxol[address] [place], [place] [address]DrKianna Tripathi NEUT # 7.7 103/ul Critically high 1.4-6.5 [facility] Comment on above: Performed By: #### C BC ####[facility] Nsxuawaydp9164[address] [place], [place] [address]DrKianna Tripathi Neutrophils/100 WBC (Bld) 79.5 % Critically high 43.0-75.0 [facility] Comment on above: Performed By: #### C BC ####[facility] Btcnzogutt[address] [place] [address]Dr. Airam Tripathi Platelet mean volume (Bld) [Entitic vol] 9.6 fL Normal 9.5-13.5 [facility] Comment on above: Performed By: #### C BC ####[facility] Lpfhpgsmgj6191 [place] [address]Dr. Airam Tripathi PLT 268 103/ul Normal 150-450 [facility] Comment on above: Performed By: #### C BC ####[facility] Tafkttoidz6949 [place] [id number]. Airam Tripathi RBC 3.58 106/ul Critically low 4.20-5.40 [facility] Comment on above: Performed By: #### C BC ####[facility] Fibjevzwjt5113 [place] [address]DrKianna Tripathi WBC 9.7 103/ul Normal 4.0-11.0 [facility] Comment on above: Performed By: #### C BC ####[facility] Efhfkpikgh2059 [place] [id number] Tripathi PROF 14(COMP METB)on 022 Albumin [Mass/Vol] 3.6 g/dL Normal 3.4-5.0 [facility] Comment on above: Performed By: #### C MP ####[facility] Mbmrttmglp3663 [place] [address]DrKianna Tripathi Albumin/Globulin [Mass ratio] 1.1 {ratio} Normal [facility] Comment on above: Performed By: #### C MP ####[facility] Sndsmriids0484 [place] [id number] Tripathi ALP [Catalytic activity/Vol] 131 U/L Critically high 46-116 [facility] Comment on above: Performed By: #### C MP ####[facility] Vzyhbuuyok033[address] [place] [address]DrKianna Tripathi ALT [Catalytic activity/Vol] 22 U/L Normal 14-59 [facility] Comment on above: Performed By: #### C MP ####[facility] Zyccyydlnf6757 [place] [phone]. Airam Tripathi Anion gap [Moles/Vol] 13.3 mmol/L Normal Th [facility] Comment on above: Performed By: #### C MP ####[facility] Reiqexocki3183 [place] [id number]. Airam Tripathi AST [Catalytic activity/Vol] 23 U/L Normal 15-37 [facility] Comment on above: Performed By: #### C MP ####[facility] Qikiwmocax5769 [place] [address]Dr. Airam Deuce Bilirubin [Mass/Vol] 0.3 mg/dL Normal 0.2-1.0 [facility] Comment on above: Performed By: #### C MP ####[facility] Kfxdapmeff[address] [place], [place] [address]Dr. Airam Tripathi Calcium [Mass/Vol] 8.7 mg/dL Normal 8.5-10.1 [facility] Comment on above: Performed By: #### C MP ####[facility] Eavjpmbczj[address] [place], [place] [address]Dr. Selenaneil Tripathi Chloride [Moles/Vol] 104 mmol/L Normal 98-107 [facility] Comment on above: Performed By: #### C MP ####[facility] Gaawdiqext[address] [place], [place] [address]Dr. Selenaneil Deuce CO2 [Moles/Vol] 22.0 mmol/L Normal 21.0-32.0 [facility] Comment on above: Performed By: #### C MP ####[facility] Ewoejxmwxw766[address] [place], [place] [address]Dr. Selenaneil Deuce Creatinine [Mass/Vol] 1.20 mg/dL Critically high 0.55-1.02 [facility] Comment on above: Performed By: #### C MP ####[facility] Eqabdwevss[address] [place] [address]Dr. Selenaneil Deuce EGFR-AF LATVIAN 56 mL/min/1.73m2 Critically low >=60 [facility] Comment on above: Performed By: #### C MP ####[facility] Ozyoutomie119[address] [place] [id number]. Airam Tripathi EGFR-NON AF LATVIAN 46 mL/min/1.73m2 Critically low >=60 [facility] Comment on above: Performed By: #### C MP ####[facility] Cdnaicsdnx5627 [place] [id number]. Airam Tripathi Globulin (S) [Mass/Vol] 3.2 g/dL Normal [facility] Comment on above: Performed By: #### C MP ####[facility] Bbslguybsk[address] [place] [address]Dr. Airam Tripathi Glucose [Mass/Vol] 98 mg/dL Normal 74-106 [facility] Comment on above: Performed By: #### C MP ####[facility] Gusdcvpccn7171 [place] [address]Dr. Airam Tripathi Potassium [Moles/Vol] 4.3 mmol/L Normal 3.5-5.1 [facility] Comment on above: Performed By: #### C MP ####[facility] Fdzotqtgdw9100 [place] [address]Dr. Airam Tripathi Protein [Mass/Vol] 6.8 g/dL Normal 6.4-8.2 [facility] Comment on above: Performed By: #### C MP ####[facility] Nadclknxon9957 [place] [address]Dr. Airam Tripathi Sodium [Moles/Vol] 135 mmol/L Critically low 136-145 [facility] Comment on above: Performed By: #### C MP ####[facility] Gwarefwcfj5559 [place] [address]Dr. Airam Tripathi Urea nitrogen [Mass/Vol] 33.0 mg/dL Critically high 7.0-18.0 [facility] Comment on above: Performed By: #### C MP ####[facility] Hzatawfcyf2771 [place] [address]Dr. Airam Deuce Urea nitrogen/Creatinine [Mass ratio] 27.5 mg/mg Normal [facility] Comment on above: Performed By: #### C MP ####[facility] Tzqlcdjodr1332 [place] [address]Dr. Airam Tripathi OSMOLALITYon 02-07-2022 Osmolality [Osmolality] 299 mosm/kg Critically high 275-295 [facility] Comment on above: Performed By: #### O SMO ####[facility] Dnjxzvfvyu[address] [place], [place] [address]Dr. Airam Deuce CBC AUTO DIFFon 02-03-2022 BASO # 0.0 103/ul Normal 0.0-0.1 [facility] Comment on above: Performed By: #### C BC ####[facility] Omlxqfxyac[address] [place], [place] [address]Dr. Airam Tripathi Basophils/100 WBC (Bld) 0.4 % Normal 0.2-2.0 [facility] Comment on above: Performed By: #### C BC ####[facility] Ccdqmtzqpu[address] [place], [place] [address]Dr. Airam Tripathi EO # 0.3 103/ul Normal 0.0-0.7 [facility] Comment on above: Performed By: #### C BC ####[facility] [address]mvgxollym[address] [place], [place] [address]Dr. Airam Tripathi Eosinophils/100 WBC (Bld) 3.6 % Normal 0.9-7.0 [facility] Comment on above: Performed By: #### C BC ####[facility] Y[address]omdwzwd[address] [place], [place] [address]Dr. Airam Tripathi Erythrocyte distribution width (RBC) [Ratio] 13.2 % Normal 11.0-15.0 [facility] Comment on above: Performed By: #### C BC ####[facility] Xljgoovszu[address] [place], [place] [address]Dr. Airam Tripathi Hematocrit (Bld) [Volume fraction] 32.0 % Critically low 36.0-48.0 [facility] Comment on above: Performed By: #### C BC ####[facility] Gszcxoxlzi[address] [place], [place] [address]Dr. Airam Tripathi Hemoglobin (Bld) [Mass/Vol] 9.8 g/dL Critically low 12.0-16.0 [facility] Comment on above: Performed By: #### C BC ####[facility] Zltijyacgj0536 [place] [address]DrKianna Tripathi IG # 0.03 10e3/ul Normal 0.00-0.03 [facility] Comment on above: Performed By: #### C BC ####[facility] Lqxallhxex3249 [place] [address]DrKianna Tripathi IG % 0.4 % Normal 0.0-0.5 [facility] Comment on above: Performed By: #### C BC ####[facility] I[address]lwusdu[address] [place], [place] [address]DrKianna Tripathi LYMPH # 1.7 103/ul Normal 1.2-3.8 [facility] Comment on above: Performed By: #### C BC ####[facility] Pmespcrmad4665 [place] [address]DrKianna Tripathi Lymphocytes/100 WBC (Bld) 24.8 % Normal 20.5-60.0 [facility] Comment on above: Performed By: #### C BC ####[facility] [facility] Bbbpivaxum[address] [place] [address]DrKianna Tripathi MANUAL DIFF REQ NO Normal [facility] Comment on above: Performed By: #### C BC ####[facility] V[address]vghk[address] [place], [place] [address]DrKianna Tripathi MCH (RBC) [Entitic mass] 29.6 pg Normal 26.7-34.0 [facility] Comment on above: Performed By: #### C BC ####[facility] Iedgkilsta3839 [place] [id number] Tripathi MCHC (RBC) [Mass/Vol] 30.6 g/dL Normal 29.9-35.2 [facility] Comment on above: Performed By: #### C BC ####[facility] Snvrswzvxw6484 [place] [address]DrKianna Tripathi MCV (RBC) [Entitic vol] 96.7 fL Normal 81.0-99.0 [facility] Comment on above: Performed By: #### C BC ####[facility] Aoeytfllkj7833 [place] [id number]. Airam Tripathi MONO # 0.4 103/ul Normal 0.3-0.8 [facility] Comment on above: Performed By: #### C BC ####[facility] Zuogxoezmk0791 [place] [phone]. Airam Tripatih Monocytes/100 WBC (Bld) 6.3 % Normal 1.7-12.0 [facility] Comment on above: Performed By: #### C BC ####[facility] Omicpsjkem[address] [place], [place] [address]Dr. Airam Tripathi NEUT # 4.5 103/ul Normal 1.4-6.5 [facility] Comment on above: Performed By: #### C BC ####[facility] Tzjdxelnll[address] [place], [place] [address]Dr. Airam Tripathi Neutrophils/100 WBC (Bld) 64.5 % Normal 43.0-75.0 [facility] Comment on above: Performed By: #### C BC ####[facility] Wwvdjsqcjp3083 [place] [address]Dr. Airam Tripathi Platelet mean volume (Bld) [Entitic vol] 9.3 fL Critically low 9.5-13.5 [facility] Comment on above: Performed By: #### C BC ####[facility] Wfcdfyydzp3250 [place] [address]Dr. Airam Tripathi PLT 243 103/ul Normal 150-450 [facility] Comment on above: Performed By: #### C BC ####[facility] Eobhkuxwau3324 [place] [id number]. Airam Tripathi RBC 3.31 106/ul Critically low 4.20-5.40 [facility] Comment on above: Performed By: #### C BC ####[facility] Adpdyppnja6931 [place] [phone]. Airam Tripathi WBC 7.0 103/ul Normal 4.0-11.0 [facility] Comment on above: Performed By: #### C BC ####[facility] Kftvnebyod7644 [place] [address]Dr. Airam Tripathi PROF 14(COMP METB)on 022 Albumin [Mass/Vol] 3.3 g/dL Critically low 3.4-5.0 [facility] Comment on above: Performed By: #### C MP ####[facility] Vstjmrhvwf5063 [place] [address]Dr. Airam Tripathi Albumin/Globulin [Mass ratio] 1.1 {ratio} Normal [facility] Comment on above: Performed By: #### C MP ####[facility] Bczwvvjsna7387 [place] [address]Dr. Airam Tripathi ALP [Catalytic activity/Vol] 126 U/L Critically high 46-116 [facility] Comment on above: Performed By: #### C MP ####[facility] Hvefdrorcp56[address] [place], [place] [address]Dr. Airam Tripathi ALT [Catalytic activity/Vol] 21 U/L Normal 14-59 [facility] Comment on above: Performed By: #### C MP ####[facility] Srustpaete[address] [place], [place] [address]Dr. Airam Tripathi Anion gap [Moles/Vol] 11.8 mmol/L Normal [facility] Comment on above: Performed By: #### C MP ####[facility] Lknnrndbca35[address] [place], [place] [address]Dr. Airam Tripathi AST [Catalytic activity/Vol] 22 U/L Normal 15-37 [facility] Comment on above: Performed By: #### C MP ####[facility] Ihnwbhkfgf8[address] [place], [place] [address]Dr. Airam Tripathi Bilirubin [Mass/Vol] 0.3 mg/dL Normal 0.2-1.0 [facility] Comment on above: Performed By: #### C MP ####[facility] Xylcbbdyck996[address] [place], [place] [address]Dr. Airam Tripathi Calcium [Mass/Vol] 8.7 mg/dL Normal 8.5-10.1 [facility] Comment on above: Performed By: #### C MP ####[facility] Srysqodbxa7284 [place] [address]Dr. Airam Tripathi Chloride [Moles/Vol] 102 mmol/L Normal 98-107 [facility] Comment on above: Performed By: #### C MP ####[facility] Goajdnfbdw5065 [place] [phone]. Airam Tripathi CO2 [Moles/Vol] 25.5 mmol/L Normal 21.0-32.0 [facility] Comment on above: Performed By: #### C MP ####[facility] Cufeaphskl9569 [place] [address]Dr. Airam Tripathi Creatinine [Mass/Vol] 1.43 mg/dL Critically high 0.55-1.02 [facility] Comment on above: Performed By: #### C MP ####[facility] Imvjrdmriq6[address] [place], [place] [address]Dr. Airam Tripathi EGFR-AF LATVIAN 46 mL/min/1.73m2 Critically low >=60 [facility] Comment on above: Performed By: #### C MP ####[facility] Bazsbupvov5[address] [place], [place] [address]Dr. Airam Tripathi EGFR-NON AF LATVIAN 38 mL/min/1.73m2 Critically low >=60 [facility] Comment on above: Performed By: #### C MP ####[facility] Ulvnczeexs3363 [place] [address]Dr. Airam Tripathi Globulin (S) [Mass/Vol] 2.9 g/dL Normal [facility] Comment on above: Performed By: #### C MP ####[facility] Cxvscdlejy5267 [place] [id number]. Airam Tripathi Glucose [Mass/Vol] 83 mg/dL Normal 74-106 [facility] Comment on above: Performed By: #### C MP ####[facility] Sqorhhtjjn3441 [place] [address]Dr. Airam Tripathi Potassium [Moles/Vol] 4.3 mmol/L Normal 3.5-5.1 [facility] Comment on above: Performed By: #### C MP ####[facility] Tucprnjumf2875 [place] [address]Dr. Airam Tripathi Protein [Mass/Vol] 6.2 g/dL Critically low 6.4-8.2 [facility] Comment on above: Performed By: #### C MP ####[facility] Yqkpseevpb027[address] [place], [place] [address]Dr. Airam Tripathi Sodium [Moles/Vol] 135 mmol/L Critically low 136-145 Th [facility] Comment on above: Performed By: #### C MP ####[facility] Daudzbjezv037[address] [place], [place] [address]Dr. Airam Deuce Urea nitrogen [Mass/Vol] 39.0 mg/dL Critically high 7.0-18.0 [facility] Comment on above: Performed By: #### C MP ####[facility] Mmvwiuwshe829[address] [place], [place] [address]Dr. Airam Deuce Urea nitrogen/Creatinine [Mass ratio] 27.3 mg/mg Normal [facility] Comment on above: Performed By: #### C MP ####[facility] Ztkoxtxcam97[address] [place], [place] [address]Dr. Airam Tripathi OSMOLALITYon 02-02-2022 Osmolality [Osmolality] 292 mosm/kg Normal 275-295 [facility] Comment on above: Performed By: #### O SMO ####[facility] Ovzekbfvlu359[address] [place], [place] [address]Dr. Airam Tripathi CBC AUTO DIFFon 01-27-2022 BASO # 0.0 103/ul Normal 0.0-0.1 [facility] Comment on above: Performed By: #### C BC ####[facility] Fuutvmsuht9399[address] [place], [place] [address]Dr. Airam Deuce Basophils/100 WBC (Bld) 0.4 % Normal 0.2-2.0 [facility] Comment on above: Performed By: #### C BC ####[facility] Amfzsdlrkm7890[address] [place], [place] [address]Dr. Airam Deuce EO # 0.2 103/ul Normal 0.0-0.7 [facility] Comment on above: Performed By: #### C BC ####[facility] Nwisxqevos5585 [place] [address]Dr. Airam Tripathi Eosinophils/100 WBC (Bld) 3.4 % Normal 0.9-7.0 [facility] Comment on above: Performed By: #### C BC ####[facility] Axgikvscck102[address] [place], [place] [address]Dr. Airam Tripathi Erythrocyte distribution width (RBC) [Ratio] 13.1 % Normal 11.0-15.0 [facility] Comment on above: Performed By: #### C BC ####[facility] Dgnmxgroik9785[address] [place], [place] [address]Dr. Airam Tripathi Hematocrit (Bld) [Volume fraction] 31.6 % Critically low 36.0-48.0 [facility] Comment on above: Performed By: #### C BC ####[facility] Bqjvsmlspu24[address] [place], [place] [address]Dr. Airam Tripathi Hemoglobin (Bld) [Mass/Vol] 9.9 g/dL Critically low 12.0-16.0 [facility] Comment on above: Performed By: #### C BC ####[facility] Kwlwncleko3[address] [place], [place] [address]Dr. Airam Tripathi IG # 0.02 10e3/ul Normal 0.00-0.03 [facility] Comment on above: Performed By: #### C BC ####[facility] Cpyckcknte[address] [place], [place] [address]Dr. Airam Tripathi IG % 0.4 % Normal 0.0-0.5 [facility] Comment on above: Performed By: #### C BC ####[facility] Wlfpmszvsd[address] [place], [place] [address]Dr. Airam Tripathi LYMPH # 1.0 103/ul Critically low 1.2-3.8 [facility] Comment on above: Performed By: #### C BC ####[facility] Fgrcjtyiqp811[address] [place], [place] [address]Dr. Airam Tripathi Lymphocytes/100 WBC (Bld) 17.4 % Critically low 20.5-60.0 [facility] Comment on above: Performed By: #### C BC ####[facility] Cnstdkcywj6621 [place] [address]DrKianna Tripathi MANUAL DIFF REQ NO Normal [facility] Comment on above: Performed By: #### C BC ####[facility] Hraiiqamfe2574 [place] [address]DrKianna Tripathi MCH (RBC) [Entitic mass] 30.1 pg Normal 26.7-34.0 [facility] Comment on above: Performed By: #### C BC ####[facility] Bmkpgpniix[address] [place], [place] [address]DrKianna Tripathi MCHC (RBC) [Mass/Vol] 31.3 g/dL Normal 29.9-35.2 [facility] Comment on above: Performed By: #### C BC ####[facility] Ffxtaznifo[address] [place], [place] [address]DrKianna Tripathi MCV (RBC) [Entitic vol] 96.0 fL Normal 81.0-99.0 [facility] Comment on above: Performed By: #### C BC ####[facility] Rhuyokwbqa[address] [place], [place] [address]DrKianna Tripathi MONO # 0.5 103/ul Normal 0.3-0.8 [facility] Comment on above: Performed By: #### C BC ####[facility] Vipzhswnqu[address] [place], [place] [address]DrKianna Tripathi Monocytes/100 WBC (Bld) 8.6 % Normal 1.7-12.0 [facility] Comment on above: Performed By: #### C BC ####[facility] Jxcqafdtfx[address] [place], [place] [address]DrKianna Tripathi NEUT # 3.9 103/ul Normal 1.4-6.5 [facility] Comment on above: Performed By: #### C BC ####[facility] Jvucduwane192[address] [place], [place] [address]DrKianna Tripathi Neutrophils/100 WBC (Bld) 69.8 % Normal 43.0-75.0 [facility] Comment on above: Performed By: #### C BC ####[facility] Iabynxfzik5809 [place] [address]DrKianna Tripathi Platelet mean volume (Bld) [Entitic vol] 9.6 fL Normal 9.5-13.5 [facility] Comment on above: Performed By: #### C BC ####[facility] Bndbqsqiwe1855 [place] [address]DrKianna Tripathi PLT 228 103/ul Normal 150-450 [facility] Comment on above: Performed By: #### C BC ####[facility] Lzysqnhpbi4436 [place] [address]Dr. Airam Tripathi RBC 3.29 106/ul Critically low 4.20-5.40 [facility] Comment on above: Performed By: #### C BC ####[facility] Denavhovux27[address] [place], [place] [address]DrKianna Tripathi WBC 5.6 103/ul Normal 4.0-11.0 [facility] Comment on above: Performed By: #### C BC ####[facility] Lyzpsyxmtd[address] [place], [place] [address]DrKianna Tripathi PROF 14(COMP METB)on 022 Albumin [Mass/Vol] 3.1 g/dL Critically low 3.4-5.0 [facility] Comment on above: Performed By: #### C MP ####[facility] Gjtmhwgtfj728[address] [place], [place] [address]DrKianna Tripathi Albumin/Globulin [Mass ratio] 1.0 {ratio} Normal [facility] Comment on above: Performed By: #### C MP ####[facility] Hgxuijttyt69[address] [place], [place] [address]DrKianna Tripathi ALP [Catalytic activity/Vol] 131 U/L Critically high 46-116 [facility] Comment on above: Performed By: #### C MP ####[facility] Lxjwclkmaq[address] [place], [place] [address]DrKianna Tripathi ALT [Catalytic activity/Vol] 19 U/L Normal 14-59 [facility] Comment on above: Performed By: #### C MP ####[facility] Sanukohybf7340 [place] [address]Dr. Airam Tripathi Anion gap [Moles/Vol] 12.9 mmol/L Normal [facility] Comment on above: Performed By: #### C MP ####[facility] Nxzpwarzxq3055 [place] [address]Dr. Airam Deuce AST [Catalytic activity/Vol] 21 U/L Normal 15-37 [facility] Comment on above: Performed By: #### C MP ####[facility] Sswibnkncs25[address] [place], [place] [address]Dr. Selenaneil Deuce Bilirubin [Mass/Vol] 0.2 mg/dL Normal 0.2-1.0 [facility] Comment on above: Performed By: #### C MP ####[facility] Djsavsoqpn2[address] [place], [place] [address]Dr. Selenaneil Deuce Calcium [Mass/Vol] 8.4 mg/dL Critically low 8.5-10.1 [facility] Comment on above: Performed By: #### C MP ####[facility] Njkkvpmxjk88[address] [place], [place] [address]Dr. Selenaneil Tripathi Chloride [Moles/Vol] 103 mmol/L Normal 98-107 [facility] Comment on above: Performed By: #### C MP ####[facility] Milqvcrbsl912[address] [place], [place] [address]Dr. Selenaneil Deuce CO2 [Moles/Vol] 23.7 mmol/L Normal 21.0-32.0 [facility] Comment on above: Performed By: #### C MP ####[facility] Cgrkkpjrls2160[address] [place], [place] [address]Dr. Selenaneil Deuce Creatinine [Mass/Vol] 1.37 mg/dL Critically high 0.55-1.02 [facility] Comment on above: Performed By: #### C MP ####[facility] Eswlxgsied4310[address] [place], [place] [address]Dr. Selenaneil Deuce EGFR-AF LATVIAN 48 mL/min/1.73m2 Critically low >=60 [facility] Comment on above: Performed By: #### C MP ####[facility] Txuslualhu4876 [place] [address]Dr. Airam Tripathi EGFR-NON AF LATVIAN 39 mL/min/1.73m2 Critically low >=60 [facility] Comment on above: Performed By: #### C MP ####[facility] Kptwiymwdn8883 [place] [address]Dr. Airam Deuce Globulin (S) [Mass/Vol] 3.1 g/dL Normal [facility] Comment on above: Performed By: #### C MP ####[facility] Vtmstgpbra2794[address] [place], [place] [address]Dr. Airam Tripathi Glucose [Mass/Vol] 88 mg/dL Normal 74-106 [facility] Comment on above: Performed By: #### C MP ####[facility] Qqebfsoxtu654[address] [place], [place] [address]Dr. Airam Deuce Potassium [Moles/Vol] 4.6 mmol/L Normal 3.5-5.1 [facility] Comment on above: Performed By: #### C MP ####[facility] Dddoepeumi8112[address] [place], [place] [address]Dr. Airam Deuce Protein [Mass/Vol] 6.2 g/dL Critically low 6.4-8.2 [facility] Comment on above: Performed By: #### C MP ####[facility] Oikeagniyc219[address] [place], [place] [address]Dr. Airam Tripathi Sodium [Moles/Vol] 135 mmol/L Critically low 136-145 Th [facility] Comment on above: Performed By: #### C MP ####[facility] Ayjsbocgtd3414[address] [place], [place] [address]Dr. Airam Deuce Urea nitrogen [Mass/Vol] 34.0 mg/dL Critically high 7.0-18.0 [facility] Comment on above: Performed By: #### C MP ####[facility] Udddnwfkmm4537[address] [place], [place] [address]Dr. Airam Deuce Urea nitrogen/Creatinine [Mass ratio] 24.8 mg/mg Normal [facility] Comment on above: Performed By: #### C MP ####[facility] Owcpnhrkaj8299 [place] [address]Dr. Airam Tripathi OSMOLALITYon 01-21-2022 Osmolality [Osmolality] 276 mosm/kg Normal 275-295 [facility] Comment on above: Performed By: #### O SMO ####[facility] Gmywfyvacr[address] [place], [place] [address]Dr. Airam Deuce MRI CSPINE WO CONon 01-21-20 22 MRI CSPINE WO CON Normal [facility] CBC AUTO DIFFon 01-19-2022 BASO # 0.0 103/ul Normal 0.0-0.1 [facility] Comment on above: Performed By: #### C BC ####[facility] Nuhcgegbef4[address] [place], [place] [address]Dr. Airam Tripathi Basophils/100 WBC (Bld) 0.2 % Normal 0.2-2.0 [facility] Comment on above: Performed By: #### C BC ####[facility] Pxjhveqlms9716[address] [place], [place] [address]Dr. Airam Tripathi EO # 0.2 103/ul Normal 0.0-0.7 [facility] Comment on above: Performed By: #### C BC ####[facility] Bpgfztlymy02[address] [place], [place] [address]Dr. Airam Tripathi Eosinophils/100 WBC (Bld) 2.1 % Normal 0.9-7.0 [facility] Comment on above: Performed By: #### C BC ####[facility] Zvfhduolmn[address] [place], [place] [address]Dr. Airam Tripathi Erythrocyte distribution width (RBC) [Ratio] 12.7 % Normal 11.0-15.0 [facility] Comment on above: Performed By: #### C BC ####[facility] Evohkjrxdq8589[address] [place], [place] [address]Dr. Airam Tripathi Hematocrit (Bld) [Volume fraction] 32.2 % Critically low 36.0-48.0 [facility] Comment on above: Performed By: #### C BC ####[facility] Aqpynwpheh8414 [place] [address]Dr. Airam Tripathi Hemoglobin (Bld) [Mass/Vol] 10.4 g/dL Critically low 12.0-16.0 [facility] Comment on above: Performed By: #### C BC ####[facility] Tnuztiolzq6919 [place] [address]Dr. Airam Tripathi IG # 0.03 10e3/ul Normal 0.00-0.03 [facility] Comment on above: Performed By: #### C BC ####[facility] Dioqtnafra12[address] [place], [place] [address]Dr. Airam Tripathi IG % 0.3 % Normal 0.0-0.5 [facility] Comment on above: Performed By: #### C BC ####[facility] Ccqpikyiqr[address] [place], [place] [address]Dr. Airam Tripathi LYMPH # 1.4 103/ul Normal 1.2-3.8 [facility] Comment on above: Performed By: #### C BC ####[facility] Tzmwbrjutu[address] [place], [place] [address]Dr. Airam Tripathi Lymphocytes/100 WBC (Bld) 16.0 % Critically low 20.5-60.0 [facility] Comment on above: Performed By: #### C BC ####[facility] Uqkqpwqgef[address] [place], [place] [address]Dr. Airam Tripathi MANUAL DIFF REQ NO Normal [facility] Comment on above: Performed By: #### C BC ####[facility] Qeyupotjyv17[address] [place], [place] [address]Dr. Airam Tripathi MCH (RBC) [Entitic mass] 30.0 pg Normal 26.7-34.0 [facility] Comment on above: Performed By: #### C BC ####[facility] Gvduojlvsk74[address] [place], [place] [address]Dr. Airam Tripathi MCHC (RBC) [Mass/Vol] 32.3 g/dL Normal 29.9-35.2 [facility] Comment on above: Performed By: #### C BC ####[facility] Ikttyfwmst9321 [place] [id number]. Airam Tripathi MCV (RBC) [Entitic vol] 92.8 fL Normal 81.0-99.0 [facility] Comment on above: Performed By: #### C BC ####[facility] Dpmuludyia7935 [place] [id number]. Airam Tripathi MONO # 0.4 103/ul Normal 0.3-0.8 [facility] Comment on above: Performed By: #### C BC ####[facility] Vgwhbxiqqu8160 [place] [id number]. Airam Tripathi Monocytes/100 WBC (Bld) 4.9 % Normal 1.7-12.0 [facility] Comment on above: Performed By: #### C BC ####[facility] Bmnapebvqy8377 [place] [id number]. Airam Tripathi NEUT # 6.6 103/ul Critically high 1.4-6.5 [facility] Comment on above: Performed By: #### C BC ####[facility] Ahsjotpfzj6629 [place] [id number]. Airam Tripathi Neutrophils/100 WBC (Bld) 76.5 % Critically high 43.0-75.0 [facility] Comment on above: Performed By: #### C BC ####[facility] Dcycomeegr1021 [place] [id number]. Airam Tripathi Platelet mean volume (Bld) [Entitic vol] 9.8 fL Normal 9.5-13.5 [facility] Comment on above: Performed By: #### C BC ####[facility] Moewvhgnoz8380 [place] [id number]. Airam Tripathi PLT 262 103/ul Normal 150-450 [facility] Comment on above: Performed By: #### C BC ####[facility] Cyitvdphiv3087 [place] [id number]. Airam Tripathi RBC 3.47 106/ul Critically low 4.20-5.40 [facility] Comment on above: Performed By: #### C BC ####[facility] Gskinzlgpt7859 [place] [address]Dr. Airam Tripathi WBC 8.7 103/ul Normal 4.0-11.0 [facility] Comment on above: Performed By: #### C BC ####[facility] Rvflogktfa1654 [place] [address]Dr. Airam Tripathi PROF 14(COMP METB)on 022 Albumin [Mass/Vol] 3.3 g/dL Critically low 3.4-5.0 [facility] Comment on above: Performed By: #### C MP ####[facility] Kheewznyzn8639 [place] [address]Dr. Airam Tripathi Albumin/Globulin [Mass ratio] 1.1 {ratio} Normal [facility] Comment on above: Performed By: #### C MP ####[facility] [address]qfpgwc[address] [place], [place] [address]Dr. Airam Tripathi ALP [Catalytic activity/Vol] 114 U/L Normal 46-116 [facility] Comment on above: Performed By: #### C MP ####[facility] Qxshdpuedk[address] [place], [place] [address]Dr. Airam Tripathi ALT [Catalytic activity/Vol] 20 U/L Normal 14-59 [facility] Comment on above: Performed By: #### C MP ####[facility] [address]bkxapn[address] [place], [place] [address]Dr. Airam Tripathi Anion gap [Moles/Vol] 14.7 mmol/L Normal [facility] Comment on above: Performed By: #### C MP ####[facility] [address]rlsujej[address] [place], [place] [address]Dr. Airam Tripathi AST [Catalytic activity/Vol] 22 U/L Normal 15-37 [facility] Comment on above: Performed By: #### C MP ####[facility] Zmyvghxhwc[address] [place], [place] [address]Dr. Airam Tripathi Bilirubin [Mass/Vol] 0.3 mg/dL Normal 0.2-1.0 [facility] Comment on above: Performed By: #### C MP ####[facility] Sandtnccdy8237 [place] [id number]. Airam Tripathi Calcium [Mass/Vol] 8.8 mg/dL Normal 8.5-10.1 [facility] Comment on above: Performed By: #### C MP ####[facility] Migfpunpan9825 [place] [id number]. Airam Tripathi Chloride [Moles/Vol] 97 mmol/L Critically low 98-107 [facility] Comment on above: Performed By: #### C MP ####[facility] Nznzvzvigy8867 [place] [id number]. Airam Tripathi CO2 [Moles/Vol] 24.5 mmol/L Normal 21.0-32.0 [facility] Comment on above: Performed By: #### C MP ####[facility] Nsjveyezmh1148 [place] [address]Dr. Airam Tripathi Creatinine [Mass/Vol] 1.28 mg/dL Critically high 0.55-1.02 [facility] Comment on above: Performed By: #### C MP ####[facility] Yspdadirqa5258 [place] [id number]. Airam Tripathi EGFR-AF LATVIAN 52 mL/min/1.73m2 Critically low >=60 [facility] Comment on above: Performed By: #### C MP ####[facility] Cemvejnnlr5418 [place] [id number]. Airam Tripathi EGFR-NON AF LATVIAN 43 mL/min/1.73m2 Critically low >=60 [facility] Comment on above: Performed By: #### C MP ####[facility] Rctnqaxngu2539 [place] [id number]. Airam Tripathi Globulin (S) [Mass/Vol] 3.1 g/dL Normal [facility] Comment on above: Performed By: #### C MP ####[facility] Kydlwhjcox0616 [place] [id number]. Airam Deuce Glucose [Mass/Vol] 87 mg/dL Normal 74-106 [facility] Comment on above: Performed By: #### C MP ####[facility] Wvaevxzneb8205 [place] [address]Dr. Airam Deuce Potassium [Moles/Vol] 4.2 mmol/L Normal 3.5-5.1 [facility] Comment on above: Performed By: #### C MP ####[facility] Gdxqjhutyy1585 [place] [address]Dr. Airam Deuce Protein [Mass/Vol] 6.4 g/dL Normal 6.4-8.2 [facility] Comment on above: Performed By: #### C MP ####[facility] Byxgevebqq8[address] [place], [place] [address]Dr. Selenaneil Tripathi Sodium [Moles/Vol] 132 mmol/L Critically low 136-145 Th [facility] Comment on above: Performed By: #### C MP ####[facility] Cgrsmdvywr[address] [place], [place] [address]Dr. Airam Tripathi Urea nitrogen [Mass/Vol] 36.0 mg/dL Critically high 7.0-18.0 [facility] Comment on above: Performed By: #### C MP ####[facility] Lyoelopxgc713[address] [place], [place] [address]Dr. Selenaneil Tripathi Urea nitrogen/Creatinine [Mass ratio] 28.1 mg/mg Normal [facility] Comment on above: Performed By: #### C MP ####[facility] Ycakqrpptj[address] [place], [place] [address]Dr. Airam Deuce XR DEXA BONE DENSITYon 01-19 XR DEXA BONE DENSITY Normal [facility] OSMOLALITYon 01-13-2022 Osmolality [Osmolality] 277 mosm/kg Normal 275-295 [facility] Comment on above: Performed By: #### O SMO ####[facility] Xudphhlsit[address] [place], [place] [address]Dr. Selenaneil Deuce CBC AUTO DIFFon 01-11-2022 BASO # 0.0 103/ul Normal 0.0-0.1 [facility] Comment on above: Performed By: #### C BC ####[facility] Prhfhtmeji2[address] [place], [place] [address]Dr. Airam Tripathi Basophils/100 WBC (Bld) 0.5 % Normal 0.2-2.0 [facility] Comment on above: Performed By: #### C BC ####[facility] Jwmfabulht129[address] [place], [place] [address]Dr. Airam Tripathi EO # 0.2 103/ul Normal 0.0-0.7 [facility] Comment on above: Performed By: #### C BC ####[facility] Qmoeplmwpi8095[address] [place], [place] [address]Dr. Airam Tripathi Eosinophils/100 WBC (Bld) 3.1 % Normal 0.9-7.0 [facility] Comment on above: Performed By: #### C BC ####[facility] Mhsdwajeaa3617[address] [place], [place] [address]Dr. Airam Tripathi Erythrocyte distribution width (RBC) [Ratio] 12.5 % Normal 11.0-15.0 [facility] Comment on above: Performed By: #### C BC ####[facility] Whproacdvk998[address] [place], [place] [address]Dr. Airam Tripathi Hematocrit (Bld) [Volume fraction] 34.4 % Critically low 36.0-48.0 [facility] Comment on above: Performed By: #### C BC ####[facility] Amhwirkplw839[address] [place], [place] [address]Dr. Airam Tripathi Hemoglobin (Bld) [Mass/Vol] 11.0 g/dL Critically low 12.0-16.0 [facility] Comment on above: Performed By: #### C BC ####[facility] Wlaaqdiajh506[address] [place], [place] [address]Dr. Airam Tripathi IG # 0.03 10e3/ul Normal 0.00-0.03 [facility] Comment on above: Performed By: #### C BC ####[facility] Ddkdtekrem1639[address] [place], [place] [address]Dr. Airam Tripathi IG % 0.5 % Normal 0.0-0.5 [facility] Comment on above: Performed By: #### C BC ####[facility] Dunrraomlg7618[address] [place], [place] [address]Dr. Airam Tripathi LYMPH # 1.6 103/ul Normal 1.2-3.8 [facility] Comment on above: Performed By: #### C BC ####[facility] Drdbpqpeyz5073 [place] [address]Dr. Airam Tripathi Lymphocytes/100 WBC (Bld) 28.0 % Normal 20.5-60.0 [facility] Comment on above: Performed By: #### C BC ####[facility] Togsuphslf2842 [place] [address]DrKianna Tripathi MANUAL DIFF REQ NO Normal [facility] Comment on above: Performed By: #### C BC ####[facility] Fiauugchqs2364 [place] [address]DrKianna Tripathi MCH (RBC) [Entitic mass] 30.1 pg Normal 26.7-34.0 [facility] Comment on above: Performed By: #### C BC ####[facility] Qrdwggvkrf6748[address] [place], [place] [address]Dr. Airam Tripathi MCHC (RBC) [Mass/Vol] 32.0 g/dL Normal 29.9-35.2 [facility] Comment on above: Performed By: #### C BC ####[facility] Kiajbooeeb9955[address] [place], [place] [address]DrKianna Tripathi MCV (RBC) [Entitic vol] 94.0 fL Normal 81.0-99.0 [facility] Comment on above: Performed By: #### C BC ####[facility] Lmrqdnwoqd1670[address] [place], [place] [address]DrKianna Tripathi MONO # 0.4 103/ul Normal 0.3-0.8 [facility] Comment on above: Performed By: #### C BC ####[facility] Euqranhhjb284[address] [place], [place] [address]DrKianna Tripathi Monocytes/100 WBC (Bld) 7.5 % Normal 1.7-12.0 [facility] Comment on above: Performed By: #### C BC ####[facility] Guxtlkcpjn7349[address] [place], [place] [address]DrKianna Tripathi NEUT # 3.5 103/ul Normal 1.4-6.5 [facility] Comment on above: Performed By: #### C BC ####[facility] Sydmqraegr2255 [place] [address]Dr. Airam Tripathi Neutrophils/100 WBC (Bld) 60.4 % Normal 43.0-75.0 [facility] Comment on above: Performed By: #### C BC ####[facility] Dcynisvmxh9929 [place] [address]Dr. Airam Tripathi Platelet mean volume (Bld) [Entitic vol] 10.0 fL Normal 9.5-13.5 [facility] Comment on above: Performed By: #### C BC ####[facility] Xecvukakgn004[address] [place], [place] [address]Dr. Airam Tripathi PLT 300 103/ul Normal 150-450 [facility] Comment on above: Performed By: #### C BC ####[facility] Nvzwdutegw8394 [place] [address]Dr. Airam Tripathi RBC 3.66 106/ul Critically low 4.20-5.40 [facility] Comment on above: Performed By: #### C BC ####[facility] Hfqqunddzs5228[address] [place], [place] [address]Dr. Airam Tripathi WBC 5.7 103/ul Normal 4.0-11.0 [facility] Comment on above: Performed By: #### C BC ####[facility] Bnqvserziw73[address] [place], [place] [address]Dr. Airam Tripathi PROF 14(COMP METB)on 022 Albumin [Mass/Vol] 3.3 g/dL Critically low 3.4-5.0 [facility] Comment on above: Performed By: #### C MP ####[facility] Zkbvaufxow26[address] [place], [place] [address]DrKianna Tripathi Albumin/Globulin [Mass ratio] 1.0 {ratio} Normal [facility] Comment on above: Performed By: #### C MP ####[facility] Jjkrvkrkeg39[address] [place], [place] [address]Dr. Airam Tripathi ALP [Catalytic activity/Vol] 138 U/L Critically high 46-116 [facility] Comment on above: Performed By: #### C MP ####[facility] Bubhckores2788 [place] [address]Dr. Airam Tripathi ALT [Catalytic activity/Vol] 25 U/L Normal 14-59 [facility] Comment on above: Performed By: #### C MP ####[facility] Fftrmtczve8081 [place] [id number]. Airam Tripathi Anion gap [Moles/Vol] 14.0 mmol/L Normal Th e [facility] Comment on above: Performed By: #### C MP ####[facility] Sppwazednh3615 [place] [address]Dr. Airam Tripathi AST [Catalytic activity/Vol] 19 U/L Normal 15-37 [facility] Comment on above: Performed By: #### C MP ####[facility] Ivcmqtomvc0051 [place] [address]Dr. Airam Deuce Bilirubin [Mass/Vol] 0.3 mg/dL Normal 0.2-1.0 [facility] Comment on above: Performed By: #### C MP ####[facility] Vmfcpbzrjz2606 [place] [address]Dr. Airam Tripathi Calcium [Mass/Vol] 8.7 mg/dL Normal 8.5-10.1 [facility] Comment on above: Performed By: #### C MP ####[facility] Pznqgxkosw4025 [place] [address]Dr. Airam Tripathi Chloride [Moles/Vol] 99 mmol/L Normal 98-107 [facility] Comment on above: Performed By: #### C MP ####[facility] Iyazukdswf6076 [place] [id number]. Airam Tripathi CO2 [Moles/Vol] 25.4 mmol/L Normal 21.0-32.0 [facility] Comment on above: Performed By: #### C MP ####[facility] Zmjgvxekij8764 [place] [id number]. Airam Deuce Creatinine [Mass/Vol] 1.22 mg/dL Critically high 0.55-1.02 [facility] Comment on above: Performed By: #### C MP ####[facility] Rdycoguiah9657 [place] [id number]. Airam Tripathi EGFR-AF LATVIAN 55 mL/min/1.73m2 Critically low >=60 [facility] Comment on above: Performed By: #### C MP ####[facility] Zqgznbeppd4350 [place] [address]Dr. Airam Deuce EGFR-NON AF LATVIAN 45 mL/min/1.73m2 Critically low >=60 [facility] Comment on above: Performed By: #### C MP ####[facility] Mbgucuvwrv8570 [place] [id number]. Airam Deuce Globulin (S) [Mass/Vol] 3.2 g/dL Normal [facility] Comment on above: Performed By: #### C MP ####[facility] Iirhwrkabk7618 [place] [address]Dr. Airam Tripathi Glucose [Mass/Vol] 111 mg/dL Critically high 74-106 [facility] Comment on above: Performed By: #### C MP ####[facility] Ljkpmzwvjc7397 [place] [id number]. Selenaneil Tripathi Potassium [Moles/Vol] 4.4 mmol/L Normal 3.5-5.1 [facility] Comment on above: Performed By: #### C MP ####[facility] Olcdjtlxna9804 [place] [phone]. Airam Tripathi Protein [Mass/Vol] 6.5 g/dL Normal 6.4-8.2 [facility] Comment on above: Performed By: #### C MP ####[facility] Uveiphnvkm1105 [place] [id number]. Airam Tripathi Sodium [Moles/Vol] 134 mmol/L Critically low 136-145 [facility] Comment on above: Performed By: #### C MP ####[facility] Hscihhwpsp1227 [place] [id number]. Airam Tripathi Urea nitrogen [Mass/Vol] 27.0 mg/dL Critically high 7.0-18.0 [facility] Comment on above: Performed By: #### C MP ####[facility] Udanoppxmu5923 [place], [place] [address]Gh. Airam Tripathi Urea nitrogen/Creatinine [Mass ratio] 22.1 mg/mg Normal [facility] Comment on above: Performed By: #### C MP ####[facility] Isjwlwiuoz9690 [place], [place] [address]Sa. Airam Tripathi CT CERVICAL SPINE WITHOUT CO NTRASTon 01-10-2022 CT CERVICAL SPINE WITHOUT CONTRAST [facility] Department of Radiology [address] [place] [address] Patient Name: MABEL MOSER : [...] achievable. Electronically signed: Ayleen Ny. Transcribed by: [id number], User Resident: Electronically Signed by: AYLEEN [place] @ 01/12/2022 12:32 PM Normal The [facility] OSMOLALITYon 01-07-2022 Osmolality [Osmolality] 286 mosm/kg Normal 275-295 [facility] Comment on above: Performed By: #### O SMO ####[facility] Mblxdxsrwd6836 [place] [address]Dr. Airam Tripathi CBC AUTO DIFFon 01-06-2022 BASO # 0.0 103/ul Normal 0.0-0.1 [facility] Comment on above: Performed By: #### C BC ####[facility] Jmsfdvoney3553 [place] [id number] Tripathi Basophils/100 WBC (Bld) 0.3 % Normal 0.2-2.0 [facility] Comment on above: Performed By: #### C BC ####[facility] Wsmvfryiwg9841 [place] [id number]. Airam Tripathi EO # 0.2 103/ul Normal 0.0-0.7 [facility] Comment on above: Performed By: #### C BC ####[facility] Nvbquoosgk5586 [place] [address]Dr. Airam Tripathi Eosinophils/100 WBC (Bld) 4.1 % Normal 0.9-7.0 [facility] Comment on above: Performed By: #### C BC ####[facility] Awrnvwimou524[address] [place], [place] [address]Dr. Airam Tripathi Erythrocyte distribution width (RBC) [Ratio] 12.9 % Normal 11.0-15.0 [facility] Comment on above: Performed By: #### C BC ####[facility] Fhjycplcch[address] [place], [place] [address]Dr. Airam Tripathi Hematocrit (Bld) [Volume fraction] 34.2 % Critically low 36.0-48.0 [facility] Comment on above: Performed By: #### C BC ####[facility] Bqpqdqwkwt2[address] [place], [place] [address]Dr. Airam Tripathi Hemoglobin (Bld) [Mass/Vol] 10.6 g/dL Critically low 12.0-16.0 [facility] Comment on above: Performed By: #### C BC ####[facility] Sggkochsws[address] [place], [place] [address]Dr. Airam Tripathi IG # 0.03 10e3/ul Normal 0.00-0.03 [facility] Comment on above: Performed By: #### C BC ####[facility] Rrjjeeclca9180 [place] [address]Dr. Airam Tripathi IG % 0.5 % Normal 0.0-0.5 [facility] Comment on above: Performed By: #### C BC ####[facility] Ngyygnesaw25[address] [place], [place] [address]Dr. Airam Tripathi LYMPH # 1.1 103/ul Critically low 1.2-3.8 [facility] Comment on above: Performed By: #### C BC ####[facility] Fqgavzmhqv0084 [place] [phone]. Airam Tripathi Lymphocytes/100 WBC (Bld) 18.2 % Critically low 20.5-60.0 [facility] Comment on above: Performed By: #### C BC ####[facility] Jzmjtnmrtd9649 [place] [phone]. Airam Tripathi MANUAL DIFF REQ NO Normal [facility] Comment on above: Performed By: #### C BC ####[facility] Zzkhbcmorg2843 [place] [phone]. Airam Deuce MCH (RBC) [Entitic mass] 29.6 pg Normal 26.7-34.0 [facility] Comment on above: Performed By: #### C BC ####[facility] Kxfqmeufyr6831 [place] [address]Dr. Airam Tripathi MCHC (RBC) [Mass/Vol] 31.0 g/dL Normal 29.9-35.2 [facility] Comment on above: Performed By: #### C BC ####[facility] Mkzsbsphto5759 [place] [phone]. Airam Deuce MCV (RBC) [Entitic vol] 95.5 fL Normal 81.0-99.0 [facility] Comment on above: Performed By: #### C BC ####[facility] Srcopatdwd1037 [place] [address]Dr. Selenaneil Deuce MONO # 0.5 103/ul Normal 0.3-0.8 [facility] Comment on above: Performed By: #### C BC ####[facility] Ytllykfqas5262 [place] [phone]. Airam Deuce Monocytes/100 WBC (Bld) 8.5 % Normal 1.7-12.0 [facility] Comment on above: Performed By: #### C BC ####[facility] Vnsvgecgwq[address] [place], [place] [address]Dr. Airam Tripathi NEUT # 4.0 103/ul Normal 1.4-6.5 [facility] Comment on above: Performed By: #### C BC ####[facility] Xkofueaanz0416 [place] [phone]. Airam Tripathi Neutrophils/100 WBC (Bld) 68.4 % Normal 43.0-75.0 [facility] Comment on above: Performed By: #### C BC ####[facility] Dhgnrbdyzz1203 [place] [phone]. Airam Tripathi Platelet mean volume (Bld) [Entitic vol] 10.1 fL Normal 9.5-13.5 [facility] Comment on above: Performed By: #### C BC ####[facility] Lqqxxehmej7286 [place] [phone]. Airam Tripathi PLT 304 103/ul Normal 150-450 [facility] Comment on above: Performed By: #### C BC ####[facility] Xsgcfuziqy8718 [place] [address]Dr. Airam Tripathi RBC 3.58 106/ul Critically low 4.20-5.40 [facility] Comment on above: Performed By: #### C BC ####[facility] Cdturbsutk7966 [place] [address]Dr. Airam Tripathi WBC 5.9 103/ul Normal 4.0-11.0 [facility] Comment on above: Performed By: #### C BC ####[facility] Dvufetwavt0039 [place] [address]Dr. Airam Deuce MG MAMM RT DIAG FUon 022 MG MAMM RT DIAG FU Normal [facility] PROF 14(COMP METB)on 022 Albumin [Mass/Vol] 3.1 g/dL Critically low 3.4-5.0 [facility] Comment on above: Performed By: #### C MP ####[facility] Ngohougygf[address] [place], [place] [address]Dr. Airam Tripathi Albumin/Globulin [Mass ratio] 1.0 {ratio} Normal [facility] Comment on above: Performed By: #### C MP ####[facility] Xmaxcsgfae4164 [place] [address]Dr. Airam Tripathi ALP [Catalytic activity/Vol] 143 U/L Critically high 46-116 [facility] Comment on above: Performed By: #### C MP ####[facility] Xwsztffxoh3869 [place] [phone]. Airam Tripathi ALT [Catalytic activity/Vol] 23 U/L Normal 14-59 [facility] Comment on above: Performed By: #### C MP ####[facility] Npyobcszhz6282 [place] [phone]. Airam Tripathi Anion gap [Moles/Vol] 13.2 mmol/L Normal Th [facility] Comment on above: Performed By: #### C MP ####[facility] Xhaxsgzquy7627 [place] [phone]. Airam Tripathi AST [Catalytic activity/Vol] 20 U/L Normal 15-37 [facility] Comment on above: Performed By: #### C MP ####[facility] Fxwxvludje2189 [place] [address]Dr. Airam Deuce Bilirubin [Mass/Vol] 0.3 mg/dL Normal 0.2-1.0 [facility] Comment on above: Performed By: #### C MP ####[facility] Olbkvpwqme6632 [place] [phone]. Airam Deuce Calcium [Mass/Vol] 8.2 mg/dL Critically low 8.5-10.1 [facility] Comment on above: Performed By: #### C MP ####[facility] Gqzexcttor0447 [place] [phone]. Airam Deuce Chloride [Moles/Vol] 100 mmol/L Normal 98-107 [facility] Comment on above: Performed By: #### C MP ####[facility] Ktujpbchuw9038 [place] [phone]. Airam Deuce CO2 [Moles/Vol] 26.0 mmol/L Normal 21.0-32.0 [facility] Comment on above: Performed By: #### C MP ####[facility] Cxtsebieca6590 [place] [phone]. Selenaneil Tripathi Creatinine [Mass/Vol] 1.52 mg/dL Critically high 0.55-1.02 [facility] Comment on above: Performed By: #### C MP ####[facility] Osvzkerwka8255 [place] [id number]. Airam Tripathi EGFR-AF LATVIAN 42 mL/min/1.73m2 Critically low >=60 [facility] Comment on above: Performed By: #### C MP ####[facility] Ijlsnwtqwg2763 [place] [phone]. Airam Tripathi EGFR-NON AF LATVIAN 35 mL/min/1.73m2 Critically low >=60 [facility] Comment on above: Performed By: #### C MP ####[facility] Zpeifgksns3664 [place] [address]Dr. Airam Deuce Globulin (S) [Mass/Vol] 3.2 g/dL Normal [facility] Comment on above: Performed By: #### C MP ####[facility] Mdvmpdtfzu6390 [place] [address]Dr. Airam Deuce Glucose [Mass/Vol] 84 mg/dL Normal 74-106 [facility] Comment on above: Performed By: #### C MP ####[facility] Atgcwnooyk0069 [place] [address]Dr. Airam Deuce Potassium [Moles/Vol] 4.2 mmol/L Normal 3.5-5.1 [facility] Comment on above: Performed By: #### C MP ####[facility] Gnhgnbotyl9266 [place] [address]Dr. Airam Tripathi Protein [Mass/Vol] 6.3 g/dL Critically low 6.4-8.2 Th [facility] Comment on above: Performed By: #### C MP ####[facility] Dtzsbdbyxt0146 [place] [address]Dr. Airam Tripathi Sodium [Moles/Vol] 135 mmol/L Critically low 136-145 Th [facility] Comment on above: Performed By: #### C MP ####[facility] Inbprlolyu2569 [place] [address]Dr. Airam Deuce Urea nitrogen [Mass/Vol] 36.0 mg/dL Critically high 7.0-18.0 [facility] Comment on above: Performed By: #### C MP ####[facility] Vujfcllual3856 [place] [address]Dr. Airam Deuce Urea nitrogen/Creatinine [Mass ratio] 23.7 mg/mg Normal [facility] Comment on above: Performed By: #### C MP ####[facility] Trxpwqiivj1077 [place] [address]Dr. Airam Tripathi US BREAST RIGHT LIMITEDon US BREAST RIGHT LIMITED Normal [facility] OSMOLALITYon 12-31-2021 Osmolality [Osmolality] 280 mosm/kg Normal 275-295 [facility] Comment on above: Performed By: #### O SMO ####[facility] Jmzqloitde[address] [place], [place] [address]Dr. Airam Deuce CBC AUTO DIFFon 12-30-2021 BASO # 0.0 103/ul Normal 0.0-0.1 [facility] Comment on above: Performed By: #### C BC ####[facility] Wxcmbevxek67[address] [place], [place] [address]Dr. Airam Tripathi Basophils/100 WBC (Bld) 0.5 % Normal 0.2-2.0 [facility] Comment on above: Performed By: #### C BC ####[facility] Bstjctwigz20[address] [place], [place] [address]Dr. Airam Tripathi EO # 0.3 103/ul Normal 0.0-0.7 [facility] Comment on above: Performed By: #### C BC ####[facility] Ewvjdaubbr70[address] [place], [place] [address]Dr. Airam Tripathi Eosinophils/100 WBC (Bld) 3.5 % Normal 0.9-7.0 [facility] Comment on above: Performed By: #### C BC ####[facility] Yqwsysinoc0479[address] [place], [place] [address]Dr. Airam Tripathi Erythrocyte distribution width (RBC) [Ratio] 13.0 % Normal 11.0-15.0 [facility] Comment on above: Performed By: #### C BC ####[facility] Ljmkesjlan4711 [place] [address]Dr. Airam Tripathi Hematocrit (Bld) [Volume fraction] 34.2 % Critically low 36.0-48.0 [facility] Comment on above: Performed By: #### C BC ####[facility] Fksxwkawrb0168 [place] [address]Dr. Selenaneil Tripathi Hemoglobin (Bld) [Mass/Vol] 10.4 g/dL Critically low 12.0-16.0 [facility] Comment on above: Performed By: #### C BC ####[facility] Wipebrbvjo1173 [place] [address]Dr. Airam Tripathi IG # 0.04 10e3/ul Critically high 0.00-0.03 [facility] Comment on above: Performed By: #### C BC ####[facility] Axrckjrdqx8[address] [place], [place] [address]Dr. Airma Tripathi IG % 0.5 % Normal 0.0-0.5 [facility] Comment on above: Performed By: #### C BC ####[facility] Guitqssbhw96[address] [place], [place] [address]DrKianna Tripathi LYMPH # 2.1 103/ul Normal 1.2-3.8 [facility] Comment on above: Performed By: #### C BC ####[facility] Jhpwfclhso3449 [place] [address]DrKianna Tripathi Lymphocytes/100 WBC (Bld) 23.5 % Normal 20.5-60.0 [facility] Comment on above: Performed By: #### C BC ####[facility] Fkjxwqvtpw3467 [place] [address]DrKianna Tripathi MANUAL DIFF REQ NO Normal [facility] Comment on above: Performed By: #### C BC ####[facility] Gvlaizctdg[address] [place], [place] [address]DrKianna Tripathi MCH (RBC) [Entitic mass] 29.4 pg Normal 26.7-34.0 [facility] Comment on above: Performed By: #### C BC ####[facility] Xsrusvswgb03[address] [place], [place] [address]Dr. Airam Tripathi MCHC (RBC) [Mass/Vol] 30.4 g/dL Normal 29.9-35.2 [facility] Comment on above: Performed By: #### C BC ####[facility] Efkzchvdtp0241 [place] [id number]. Airam Tripathi MCV (RBC) [Entitic vol] 96.6 fL Normal 81.0-99.0 [facility] Comment on above: Performed By: #### C BC ####[facility] Fjfzuhgrdy8146 [place] [address]Dr. Airam Deuce MONO # 0.6 103/ul Normal 0.3-0.8 [facility] Comment on above: Performed By: #### C BC ####[facility] Jkpdwjnvjp8595 [place] [address]Dr. Selenaneil Tripathi Monocytes/100 WBC (Bld) 6.4 % Normal 1.7-12.0 [facility] Comment on above: Performed By: #### C BC ####[facility] Nkqeqmhqvi0[address] [place], [place] [address]Dr. Airam Deuce NEUT # 5.8 103/ul Normal 1.4-6.5 [facility] Comment on above: Performed By: #### C BC ####[facility] Qlwcuntjkl4925 [place] [address]Dr. Airam Deuce Neutrophils/100 WBC (Bld) 65.6 % Normal 43.0-75.0 [facility] Comment on above: Performed By: #### C BC ####[facility] Bxvlqwwcag5945 [place] [address]Dr. Airam Deuce Platelet mean volume (Bld) [Entitic vol] 9.2 fL Critically low 9.5-13.5 [facility] Comment on above: Performed By: #### C BC ####[facility] Fsburgwdrr5727 [place] [address]Dr. Airam Deuce PLT 338 103/ul Normal 150-450 [facility] Comment on above: Performed By: #### C BC ####[facility] Xtylkyogkf[address] [place] [address]Dr. Airam Tripathi RBC 3.54 106/ul Critically low 4.20-5.40 [facility] Comment on above: Performed By: #### C BC ####[facility] Iyoxdddixj8[address] [place] [address]Dr. Airam Tripathi WBC 8.9 103/ul Normal 4.0-11.0 [facility] Comment on above: Performed By: #### C BC ####[facility] Ueszescsva[address] [place] [address]Dr. Airam Tripathi MG MAMM SCREEN 3D GUMARO CADon 12-30-2021 MG MAMM SCREEN 3D GUMARO CAD Normal [facility] PROF 14(COMP METB)on 022 Albumin [Mass/Vol] 3.6 g/dL Normal 3.4-5.0 [facility] Comment on above: Performed By: #### C MP ####[facility] Ptkqhqnmgo[address] [place], [place] [address]Dr. Airam Tripathi Albumin/Globulin [Mass ratio] 1.1 {ratio} Normal [facility] Comment on above: Performed By: #### C MP ####[facility] Cgnsfypxki[address] [place] [address]Dr. Airam Deuce ALP [Catalytic activity/Vol] 117 U/L Critically high 46-116 [facility] Comment on above: Performed By: #### C MP ####[facility] Wvswvplnfo6714 [place] [address]Dr. Selenaneil Deuce ALT [Catalytic activity/Vol] 26 U/L Normal 14-59 [facility] Comment on above: Performed By: #### C MP ####[facility] Zabnebvcnb48[address] [place] [address]Dr. Selenaneil Deuce Anion gap [Moles/Vol] 11.2 mmol/L Normal [facility] Comment on above: Performed By: #### C MP ####[facility] Xtzgskabyl6683 [place] [address]Dr. Airam Tripathi AST [Catalytic activity/Vol] 29 U/L Normal 15-37 [facility] Comment on above: Performed By: #### C MP ####[facility] Tusrpcjeqb74[address] [place] [address]Dr. Airam Tripathi Bilirubin [Mass/Vol] 0.3 mg/dL Normal 0.2-1.0 [facility] Comment on above: Performed By: #### C MP ####[facility] Meitlrwlvw[address] [place], [place] [address]Dr. Airam Tripathi Calcium [Mass/Vol] 9.1 mg/dL Normal 8.5-10.1 [facility] Comment on above: Performed By: #### C MP ####[facility] Facotcrxhl[address] [place], [place] [address]Dr. Airam Tripathi Chloride [Moles/Vol] 101 mmol/L Normal 98-107 [facility] Comment on above: Performed By: #### C MP ####[facility] Dnhrotardi33[address] [place], [place] [address]Dr. Airam Tripathi CO2 [Moles/Vol] 26.8 mmol/L Normal 21.0-32.0 [facility] Comment on above: Performed By: #### C MP ####[facility] Gihggjqres[address] [place], [place] [address]Dr. Airam Tripathi Creatinine [Mass/Vol] 1.56 mg/dL Critically high 0.55-1.02 [facility] Comment on above: Performed By: #### C MP ####[facility] Wzhjpjutzo[address] [place], [place] [address]Dr. Airam Tripathi EGFR-AF LATVIAN 41 mL/min/1.73m2 Critically low >=60 [facility] Comment on above: Performed By: #### C MP ####[facility] Xwycxgeimu425[address] [place], [place] [address]Dr. Airam Tripathi EGFR-NON AF LATVIAN 34 mL/min/1.73m2 Critically low >=60 [facility] Comment on above: Performed By: #### C MP ####[facility] Ifxtdafdit5[address] [place], [place] [address]Dr. Airam Tripathi Globulin (S) [Mass/Vol] 3.3 g/dL Normal [facility] Comment on above: Performed By: #### C MP ####[facility] Uhbibmejan1894 [place] [address]Dr. Airam Tripathi Glucose [Mass/Vol] 84 mg/dL Normal 74-106 [facility] Comment on above: Performed By: #### C MP ####[facility] Rtcjryxgba2457 [place] [address]Dr. Airam Tripathi Potassium [Moles/Vol] 5.0 mmol/L Normal 3.5-5.1 [facility] Comment on above: Performed By: #### C MP ####[facility] Phebzdpxaj2105 [place] [address]Dr. Airam Tripathi Protein [Mass/Vol] 6.9 g/dL Normal 6.4-8.2 [facility] Comment on above: Performed By: #### C MP ####[facility] Zigdrsnloj9[address] [place], [place] [address]Dr. Selenaneil Tripathi Sodium [Moles/Vol] 134 mmol/L Critically low 136-145 [facility] Comment on above: Performed By: #### C MP ####[facility] Ilvlomfexj8257[address] [place], [place] [address]Dr. Airam Tripathi Urea nitrogen [Mass/Vol] 28.0 mg/dL Critically high 7.0-18.0 [facility] Comment on above: Performed By: #### C MP ####[facility] Bljwudwyzd[address] [place], [place] [address]Dr. Selenaneil Tripathi Urea nitrogen/Creatinine [Mass ratio] 17.9 mg/mg Normal [facility] Comment on above: Performed By: #### C MP ####[facility] Redtixmysq87[address] [place], [place] [address]Dr. Airam Deuce OSMOLALITYon 12-24-2021 Osmolality [Osmolality] 287 mosm/kg Normal 275-295 [facility] Comment on above: Performed By: #### O SMO ####[facility] Tygtlxigaq0904[address] [place], [place] [address]Dr. Airam Deuce CBC AUTO DIFFon 12-22-2021 BASO # 0.0 103/ul Normal 0.0-0.1 [facility] Comment on above: Performed By: #### C BC ####[facility] Ynfjdtgirm34[address] [place] [id number]. Airam Tripathi Basophils/100 WBC (Bld) 0.5 % Normal 0.2-2.0 [facility] Comment on above: Performed By: #### C BC ####[facility] Uheelfwqyy[address] [place], [place] [id number]. Airam Tripathi EO # 0.4 103/ul Normal 0.0-0.7 [facility] Comment on above: Performed By: #### C BC ####[facility] Kqwrxgvwwa[address] [place], [place] [address]Dr. Airam Tripathi Eosinophils/100 WBC (Bld) 6.4 % Normal 0.9-7.0 [facility] Comment on above: Performed By: #### C BC ####[facility] Puhlgtfiwy12[address] [place], [place] [address]Dr. Airam Tripathi Erythrocyte distribution width (RBC) [Ratio] 13.2 % Normal 11.0-15.0 [facility] Comment on above: Performed By: #### C BC ####[facility] Gaoyqjvxtm419[address] [place], [place] [address]Dr. Airam Tripathi Hematocrit (Bld) [Volume fraction] 32.2 % Critically low 36.0-48.0 [facility] Comment on above: Performed By: #### C BC ####[facility] Xsypcfprvg[address] [place], [place] [address]Dr. Airam Tripathi Hemoglobin (Bld) [Mass/Vol] 10.1 g/dL Critically low 12.0-16.0 [facility] Comment on above: Performed By: #### C BC ####[facility] Xutnsbrcvw704[address] [place], [place] [address]Dr. Airam Tripathi IG # 0.03 10e3/ul Normal 0.00-0.03 [facility] Comment on above: Performed By: #### C BC ####[facility] Vbtidyyfut03[address] [place], [place] [address]Dr. Airam Tripathi IG % 0.5 % Normal 0.0-0.5 [facility] Comment on above: Performed By: #### C BC ####[facility] Uvmegmrnpk85[address] [place] [address]Dr. Selenaneil Tripathi LYMPH # 1.3 103/ul Normal 1.2-3.8 [facility] Comment on above: Performed By: #### C BC ####[facility] Ndnhttouyo3375 [place] [id number]. Airam Tripathi Lymphocytes/100 WBC (Bld) 20.5 % Normal 20.5-60.0 [facility] Comment on above: Performed By: #### C BC ####[facility] Cokfyfjqku80[address] [place] [address]Dr. Airam Tripathi MANUAL DIFF REQ NO Normal [facility] Comment on above: Performed By: #### C BC ####[facility] Kaatsdublr79[address] [place] [address]Dr. Airam Tripathi MCH (RBC) [Entitic mass] 30.1 pg Normal 26.7-34.0 [facility] Comment on above: Performed By: #### C BC ####[facility] Ltwumatvss8[address] [place] [address]Dr. Selenaneil Tripathi MCHC (RBC) [Mass/Vol] 31.4 g/dL Normal 29.9-35.2 [facility] Comment on above: Performed By: #### C BC ####[facility] Ozjndqlcea[address] [place], [place] [address]DrKianna Tripathi MCV (RBC) [Entitic vol] 95.8 fL Normal 81.0-99.0 [facility] Comment on above: Performed By: #### C BC ####[facility] Wgyobnnono0126 [place] [id number] Tripathi MONO # 0.5 103/ul Normal 0.3-0.8 [facility] Comment on above: Performed By: #### C BC ####[facility] Ebxofferoe8925 [place] [id number]. Airam Tripathi Monocytes/100 WBC (Bld) 7.4 % Normal 1.7-12.0 [facility] Comment on above: Performed By: #### C BC ####[facility] Qcmxibsffq1613 [place] [id number]. Airam Tripathi NEUT # 3.9 103/ul Normal 1.4-6.5 [facility] Comment on above: Performed By: #### C BC ####[facility] Lddffsisjt8998 [place] [id number]. Selenaneil Deuce Neutrophils/100 WBC (Bld) 64.7 % Normal 43.0-75.0 [facility] Comment on above: Performed By: #### C BC ####[facility] Wfcycqjrqt4658 [place] [phone]. Airam Tripathi Platelet mean volume (Bld) [Entitic vol] 9.2 fL Critically low 9.5-13.5 [facility] Comment on above: Performed By: #### C BC ####[facility] Fuzznoaagv1464 [place] [address]Dr. Airam Tripathi PLT 309 103/ul Normal 150-450 [facility] Comment on above: Performed By: #### C BC ####[facility] Eopkzczudc5[address] [place] [phone]. Airam Tripathi RBC 3.36 106/ul Critically low 4.20-5.40 [facility] Comment on above: Performed By: #### C BC ####[facility] Ikqwpqagpv2777 [place] [phone]. Airam Tripathi WBC 6.1 103/ul Normal 4.0-11.0 [facility] Comment on above: Performed By: #### C BC ####[facility] Ofrxvubign6957 [place] [id number] Tripathi PROF 14(COMP METB)on 022 Albumin [Mass/Vol] 3.2 g/dL Critically low 3.4-5.0 [facility] Comment on above: Performed By: #### C MP ####[facility] Gffhodjhly3942 [place] [id number] Tripathi Albumin/Globulin [Mass ratio] 1.1 {ratio} Normal [facility] Comment on above: Performed By: #### C MP ####[facility] Fctqugoccs0141 [place] [address]Dr. Airam Tripathi ALP [Catalytic activity/Vol] 123 U/L Critically high 46-116 [facility] Comment on above: Performed By: #### C MP ####[facility] Dzgogjwqvq6290 [place] [address]Dr. Airam Deuce ALT [Catalytic activity/Vol] 26 U/L Normal 14-59 [facility] Comment on above: Performed By: #### C MP ####[facility] Mlgmwslgyi9763 [place] [address]Dr. Selenaneil Deuce Anion gap [Moles/Vol] 14.5 mmol/L Normal [facility] Comment on above: Performed By: #### C MP ####[facility] Rlskgkgjrm[address] [place], [place] [address]Dr. Selenaneil Tripathi AST [Catalytic activity/Vol] 23 U/L Normal 15-37 [facility] Comment on above: Performed By: #### C MP ####[facility] Whaygpsqkn[address] [place], [place] [address]Dr. Selenaneil Deuce Bilirubin [Mass/Vol] 0.3 mg/dL Normal 0.2-1.0 [facility] Comment on above: Performed By: #### C MP ####[facility] Jtvxjsvxuj[address] [place], [place] [address]Dr. Airam Tripathi Calcium [Mass/Vol] 8.2 mg/dL Critically low 8.5-10.1 [facility] Comment on above: Performed By: #### C MP ####[facility] Srqgxslnri1106 [place] [address]Dr. Airam Tripathi Chloride [Moles/Vol] 102 mmol/L Normal 98-107 [facility] Comment on above: Performed By: #### C MP ####[facility] Ulrkynbnqo4996 [place] [address]Dr. Airam Tripathi CO2 [Moles/Vol] 23.2 mmol/L Normal 21.0-32.0 [facility] Comment on above: Performed By: #### C MP ####[facility] Toxhcmtlth0696 [place] [id number]. Airam Tripathi Creatinine [Mass/Vol] 1.98 mg/dL Critically high 0.55-1.02 [facility] Comment on above: Performed By: #### C MP ####[facility] Vcdsurzjht7548 [place] [id number]. Airam Tripathi EGFR-AF LATVIAN 31 mL/min/1.73m2 Critically low >=60 [facility] Comment on above: Performed By: #### C MP ####[facility] Cpisfmqala7511 [place] [phone]. Airam Deuce EGFR-NON AF LATVIAN 26 mL/min/1.73m2 Critically low >=60 [facility] Comment on above: Performed By: #### C MP ####[facility] Wwyzokoswx6879 [place] [phone]. Airam Deuce Globulin (S) [Mass/Vol] 3.0 g/dL Normal [facility] Comment on above: Performed By: #### C MP ####[facility] Zbnbwbymfl3899 [place] [phone]. Airam Tripathi Glucose [Mass/Vol] 131 mg/dL Critically high 74-106 [facility] Comment on above: Performed By: #### C MP ####[facility] Xnihjtniqg2593 [place] [phone]. Airam Deuce Potassium [Moles/Vol] 4.7 mmol/L Normal 3.5-5.1 [facility] Comment on above: Performed By: #### C MP ####[facility] Tmqqnhorlu8070 [place] [phone]. Airam Tripathi Protein [Mass/Vol] 6.2 g/dL Critically low 6.4-8.2 [facility] Comment on above: Performed By: #### C MP ####[facility] Eeesxczdwb3926 [place] [phone]. Selenaneil Tripathi Sodium [Moles/Vol] 135 mmol/L Critically low 136-145 Th [facility] Comment on above: Performed By: #### C MP ####[facility] Dllzkvtpxf0097 [place] [address]Dr. Airam Tripathi Urea nitrogen [Mass/Vol] 37.0 mg/dL Critically high 7.0-18.0 [facility] Comment on above: Performed By: #### C MP ####[facility] Isoigcjgpv6002 [place] [address]Dr. Airam Tripathi Urea nitrogen/Creatinine [Mass ratio] 18.7 mg/mg Normal [facility] Comment on above: Performed By: #### C MP ####[facility] Exngufrlai23[address] [place], [place] [address]Dr. Airam Tripathi OSMOLALITYon 12-18-2021 Osmolality [Osmolality] 271 mosm/kg Critically low 275-295 [facility] Comment on above: Performed By: #### O SMO ####[facility] Jfahuqieoy27[address] [place], [place] [address]Dr. Airam Tripathi CBC AUTO DIFFon 12-16-2021 BASO # 0.0 103/ul Normal 0.0-0.1 [facility] Comment on above: Performed By: #### C BC ####[facility] Gxpasekvmp280[address] [place], [place] [address]Dr. Airam Deuce Basophils/100 WBC (Bld) 0.6 % Normal 0.2-2.0 [facility] Comment on above: Performed By: #### C BC ####[facility] Hofvmzlbnf699[address] [place], [place] [address]Dr. Airam Tripathi EO # 0.1 103/ul Normal 0.0-0.7 [facility] Comment on above: Performed By: #### C BC ####[facility] Eivwjeeoem[address] [place], [place] [address]Dr. Airam Deuce Eosinophils/100 WBC (Bld) 2.1 % Normal 0.9-7.0 [facility] Comment on above: Performed By: #### C BC ####[facility] Tyujbngexr895[address] [place], [place] [address]Dr. Airam Deuce Erythrocyte distribution width (RBC) [Ratio] 13.1 % Normal 11.0-15.0 [facility] Comment on above: Performed By: #### C BC ####[facility] Zbeqqodfnc2953 [place] [address]DrKianna Tripathi Hematocrit (Bld) [Volume fraction] 33.8 % Critically low 36.0-48.0 [facility] Comment on above: Performed By: #### C BC ####[facility] Hntdnxftsm5005 [place] [address]DrKianna Tripathi Hemoglobin (Bld) [Mass/Vol] 10.7 g/dL Critically low 12.0-16.0 [facility] Comment on above: Performed By: #### C BC ####[facility] Rqttuvdbvs[address] [place], [place] [address]DrKianna Tripathi IG # 0.02 10e3/ul Normal 0.00-0.03 [facility] Comment on above: Performed By: #### C BC ####[facility] Nziptavpak[address] [place], [place] [address]DrKianna Tripathi IG % 0.3 % Normal 0.0-0.5 [facility] Comment on above: Performed By: #### C BC ####[facility] Huojmczffc65[address] [place], [place] [address]DrKianna Tripathi LYMPH # 1.2 103/ul Normal 1.2-3.8 [facility] Comment on above: Performed By: #### C BC ####[facility] Mlckaakzhp7[address] [place], [place] [address]DrKianna Tripathi Lymphocytes/100 WBC (Bld) 17.3 % Critically low 20.5-60.0 [facility] Comment on above: Performed By: #### C BC ####[facility] Oxnycgdroq060[address] [place], [place] [address]DrKianna Tripathi MANUAL DIFF REQ NO Normal [facility] Comment on above: Performed By: #### C BC ####[facility] Ucdlxhieoc6[address] [place], [place] [address]DrKianna Tripathi MCH (RBC) [Entitic mass] 30.2 pg Normal 26.7-34.0 [facility] Comment on above: Performed By: #### C BC ####[facility] Bqaojardtr5875 [place] [address]Dr. Airam Tripathi MCHC (RBC) [Mass/Vol] 31.7 g/dL Normal 29.9-35.2 [facility] Comment on above: Performed By: #### C BC ####[facility] Jtxggwkqzh8717 [place] [address]Dr. Airam Tripathi MCV (RBC) [Entitic vol] 95.5 fL Normal 81.0-99.0 [facility] Comment on above: Performed By: #### C BC ####[facility] Akhipgqwbh9657[address] [place], [place] [address]DrKianna Tripathi MONO # 0.5 103/ul Normal 0.3-0.8 [facility] Comment on above: Performed By: #### C BC ####[facility] Gpiuwbqvcp34[address] [place], [place] [address]Dr. Airam Tripathi Monocytes/100 WBC (Bld) 6.8 % Normal 1.7-12.0 [facility] Comment on above: Performed By: #### C BC ####[facility] Izstvchggf54[address] [place], [place] [address]DrKianna Tripathi NEUT # 4.9 103/ul Normal 1.4-6.5 [facility] Comment on above: Performed By: #### C BC ####[facility] Spqjutnhyo[address] [place], [place] [address]Dr. Airam Tripathi Neutrophils/100 WBC (Bld) 72.9 % Normal 43.0-75.0 [facility] Comment on above: Performed By: #### C BC ####[facility] Ioupunafmu9[address] [place], [place] [address]DrKianna Tripathi Platelet mean volume (Bld) [Entitic vol] 9.0 fL Critically low 9.5-13.5 [facility] Comment on above: Performed By: #### C BC ####[facility] Dcqihhjyjb11[address] [place], [place] [address]Dr. Ariam Tripathi PLT 297 103/ul Normal 150-450 [facility] Comment on above: Performed By: #### C BC ####[facility] Yhrhfhdeva4[address] [place] [address]Dr. Airam Deuce RBC 3.54 106/ul Critically low 4.20-5.40 [facility] Comment on above: Performed By: #### C BC ####[facility] Diafulusqd7909 [place] [id number]. Airam Tripathi WBC 6.8 103/ul Normal 4.0-11.0 [facility] Comment on above: Performed By: #### C BC ####[facility] Qxxpcwtify2298 [place] [address]Dr. Airam Tripathi PROF 14(COMP METB)on 022 Albumin [Mass/Vol] 3.2 g/dL Critically low 3.4-5.0 [facility] Comment on above: Performed By: #### C MP ####[facility] Eicknjjpxy[address] [place], [place] [address]Dr. Airam Tripathi Albumin/Globulin [Mass ratio] 1.0 {ratio} Normal [facility] Comment on above: Performed By: #### C MP ####[facility] Kmsbehdvlo99[address] [place], [place] [address]Dr. Airam Tripathi ALP [Catalytic activity/Vol] 109 U/L Normal 46-116 [facility] Comment on above: Performed By: #### C MP ####[facility] Bmlnmzbsqp4074 [place] [address]Dr. Airam Tripathi ALT [Catalytic activity/Vol] 23 U/L Normal 14-59 [facility] Comment on above: Performed By: #### C MP ####[facility] Fnfrcajmib4591 [place] [address]Dr. Airam Tripathi Anion gap [Moles/Vol] 11.6 mmol/L Normal [facility] Comment on above: Performed By: #### C MP ####[facility] Hcvauxethn2721 [place] [address]Dr. Airam Tripathi AST [Catalytic activity/Vol] 24 U/L Normal 15-37 [facility] Comment on above: Performed By: #### C MP ####[facility] Wyeivjxkxi0470 [place] [address]Dr. Airam Tripathi Bilirubin [Mass/Vol] 0.2 mg/dL Normal 0.2-1.0 [facility] Comment on above: Performed By: #### C MP ####[facility] Cjtqsnrsea8008 [place] [address]Dr. Airam Tripathi Calcium [Mass/Vol] 8.6 mg/dL Normal 8.5-10.1 [facility] Comment on above: Performed By: #### C MP ####[facility] Qmuhoifqkd529[address] [place], [place] [address]Dr. Airam Tripathi Chloride [Moles/Vol] 100 mmol/L Normal 98-107 [facility] Comment on above: Performed By: #### C MP ####[facility] Fpzbkeydgh[address] [place], [place] [address]Dr. Airam Tripathi CO2 [Moles/Vol] 24.7 mmol/L Normal 21.0-32.0 [facility] Comment on above: Performed By: #### C MP ####[facility] Lxirigmedx225[address] [place], [place] [address]Dr. Airam Tripathi Creatinine [Mass/Vol] 1.11 mg/dL Critically high 0.55-1.02 [facility] Comment on above: Performed By: #### C MP ####[facility] Hbhtmspqzt7[address] [place], [place] [address]Dr. Airam Deuce EGFR-AF LATVIAN >60 Normal >=60 [facility] Comment on above: Performed By: #### C MP ####[facility] Pueggxnhyd2244 [place] [id number]. Airam Deuce EGFR-NON AF LATVIAN 50 mL/min/1.73m2 Critically low >=60 [facility] Comment on above: Performed By: #### C MP ####[facility] Tjcbrncdiu[address] [place], [place] [address]Dr. Airam Deuce Globulin (S) [Mass/Vol] 3.1 g/dL Normal [facility] Comment on above: Performed By: #### C MP ####[facility] Azyjnjshzx6583 [place] [address]Dr. Airam Tripathi Glucose [Mass/Vol] 79 mg/dL Normal 74-106 [facility] Comment on above: Performed By: #### C MP ####[facility] Ctqxfcmivg6115 [place] [address]Dr. Airam Tripathi Potassium [Moles/Vol] 5.3 mmol/L Critically high 3.5-5.1 [facility] Comment on above: Performed By: #### C MP ####[facility] Aiyndsmpnk0203 [place] [address]Dr. Airam Tripathi Protein [Mass/Vol] 6.3 g/dL Critically low 6.4-8.2 Th [facility] Comment on above: Performed By: #### C MP ####[facility] Wafgdkogsj8[address] [place], [place] [address]Dr. Airam Tripathi Sodium [Moles/Vol] 131 mmol/L Critically low 136-145 Th [facility] Comment on above: Performed By: #### C MP ####[facility] Jwbzfeiecv77[address] [place], [place] [address]Dr. Airam Deuce Urea nitrogen [Mass/Vol] 20.0 mg/dL Critically high 7.0-18.0 [facility] Comment on above: Performed By: #### C MP ####[facility] Stxevkopbw[address] [place], [place] [address]Dr. Airam Deuce Urea nitrogen/Creatinine [Mass ratio] 18.0 mg/mg Normal [facility] Comment on above: Performed By: #### C MP ####[facility] Hbflumysio7[address] [place], [place] [address]Dr. Airam Deuce OSMOLALITYon 12-09-2021 Osmolality [Osmolality] 279 mosm/kg Normal 275-295 [facility] Comment on above: Performed By: #### O SMO ####[facility] Xnbjwrebza[address] [place], [place] [address]Dr. Airam Deuce CBC AUTO DIFFon 12-07-2021 BASO # 0.0 103/ul Normal 0.0-0.1 [facility] Comment on above: Performed By: #### C BC ####[facility] Vahgngrunf9767 [place] [address]Dr. Selenaneil Tripathi Basophils/100 WBC (Bld) 0.5 % Normal 0.2-2.0 [facility] Comment on above: Performed By: #### C BC ####[facility] Cxxsdlghuf[address] [place], [place] [address]Dr. Airam Tripathi EO # 0.4 103/ul Normal 0.0-0.7 [facility] Comment on above: Performed By: #### C BC ####[facility] Flbmllsooe[address] [place], [place] [address]Dr. Airam Tripathi Eosinophils/100 WBC (Bld) 6.3 % Normal 0.9-7.0 [facility] Comment on above: Performed By: #### C BC ####[facility] Hrt[address]wtzxjt[address] [place], [place] [address]Dr. Airam Tripathi Erythrocyte distribution width (RBC) [Ratio] 13.3 % Normal 11.0-15.0 [facility] [facility] Comment on above: Performed By: #### C BC ####[facility] [address] [place], [place] [address]Dr. Selenaneil Deuce Hematocrit (Bld) [Volume fraction] 29.5 % Critically low 36.0-48.0 [facility] Comment on above: Performed By: #### C BC ####[facility] [address]ylxonhd[address] [place], [place] [address]Dr. Airam Deuce Hemoglobin (Bld) [Mass/Vol] 9.1 g/dL Critically low 12.0-16.0 [facility] Comment on above: Performed By: #### C BC ####[facility] Nbqzzmvuse[address] [place], [place] [address]Dr. Airam Tripathi IG # 0.04 10e3/ul Critically high 0.00-0.03 [facility] Comment on above: Performed By: #### C BC ####[facility] [address]nuurw[address] [place], [place] [address]Dr. Airam Tripathi IG % 0.7 % Critically high 0.0-0.5 [facility] Comment on above: Performed By: #### C BC ####[facility] [address] [place] [address]DrKianna Tripathi LYMPH # 1.3 103/ul Normal 1.2-3.8 [facility] Comment on above: Performed By: #### C BC ####[facility] Sgkltetzfa28[address] [place] [address]DrKianna Tripathi Lymphocytes/100 WBC (Bld) 20.9 % Normal 20.5-60.0 [facility] Comment on above: Performed By: #### C BC ####[facility] [address]jutykekc[address] [place], [place] [address]DrKianna Tripathi MANUAL DIFF REQ NO Normal [facility] Comment on above: Performed By: #### C BC ####[facility] Dlmocoscnd7[address] [place], [place] [address]DrKianna Tripathi MCH (RBC) [Entitic mass] 30.1 pg Normal 26.7-34.0 [facility] Comment on above: Performed By: #### C BC ####[facility] [address]qhfr[address] [place], [place] [address]Dr. Airam Deuce MCHC (RBC) [Mass/Vol] 30.8 g/dL Normal 29.9-35.2 [facility] Comment on above: Performed By: #### C BC ####[facility] Wcibqqlhca[address] [place], [place] [address]DrKianna Tripathi MCV (RBC) [Entitic vol] 97.7 fL Normal 81.0-99.0 [facility] Comment on above: Performed By: #### C BC ####[facility] H[address]volcber[address] [place], [place] [address]DrKianna Tripathi MONO # 0.4 103/ul Normal 0.3-0.8 [facility] Comment on above: Performed By: #### C BC ####[facility] [address]qaws[address] [place], [place] [address]DrKianna Tripathi Monocytes/100 WBC (Bld) 6.6 % Normal 1.7-12.0 [facility] Comment on above: Performed By: #### C BC ####[facility] Ltdbxeymrv13[address] [place] [address]Dr. Selenaneil Tripathi NEUT # 4.0 103/ul Normal 1.4-6.5 [facility] Comment on above: Performed By: #### C BC ####[facility] Jlgbxxoneo24[address] [place] [address]DrKianna Tripathi Neutrophils/100 WBC (Bld) 65.0 % Normal 43.0-75.0 [facility] Comment on above: Performed By: #### C BC ####[facility] Urwikvxqko79[address] [place] [address]DrKianna Tripathi Platelet mean volume (Bld) [Entitic vol] 9.4 fL Critically low 9.5-13.5 [facility] Comment on above: Performed By: #### C BC ####[facility] Xpnstfttnq[address] [place], [place] [address]Dr. Airam Tripathi PLT 224 103/ul Normal 150-450 [facility] Comment on above: Performed By: #### C BC ####[facility] [address]rfzwf[address] [place], [place] [address]DrKianna Tripathi RBC 3.02 106/ul Critically low 4.20-5.40 [facility] Comment on above: Performed By: #### C BC ####[facility] [address]rskez[address] [place], [place] [address]DrKianna Tripathi WBC 6.1 103/ul Normal 4.0-11.0 [facility] Comment on above: Performed By: #### C BC ####[facility] V[address]ylsusbox[address] [place], [place] [address]DrKianna Tripathi PROF 14(COMP METB)on 022 Albumin [Mass/Vol] 2.8 g/dL Critically low 3.4-5.0 Th [facility] Comment on above: Performed By: #### C MP ####[facility] [address]zeeft[address] [place], [place] [address]DrKianna Tripathi Albumin/Globulin [Mass ratio] 1.1 {ratio} Normal [facility] Comment on above: Performed By: #### C MP ####[facility] X[address]uxuerjsf[address] [place] [address]Dr. Airam Deuce ALP [Catalytic activity/Vol] 116 U/L Normal 46-116 [facility] Comment on above: Performed By: #### C MP ####[facility] T[address]iqwhh[address] [place] [address]Dr. Selenaneil Tripathi ALT [Catalytic activity/Vol] 23 U/L Normal 14-59 [facility] Comment on above: Performed By: #### C MP ####[facility] Uhutwzwxve[address] [place], [place] [address]Dr. Airam Tripathi Anion gap [Moles/Vol] 12.1 mmol/L Normal [facility] Comment on above: Performed By: #### C MP ####[facility] [address]wk[address] [place], [place] [address]Dr. Airam Tripathi AST [Catalytic activity/Vol] 23 U/L Normal 15-37 [facility] Comment on above: Performed By: #### C MP ####[facility] [address]znfc[address] [place], [place] [address]Dr. Airam Tripathi Bilirubin [Mass/Vol] 0.2 mg/dL Normal 0.2-1.0 [facility] Comment on above: Performed By: #### C MP ####[facility] [address]fyn[address] [place], [place] [address]Dr. Airam Tripathi Calcium [Mass/Vol] 8.1 mg/dL Critically low 8.5-10.1 [facility] Comment on above: Performed By: #### C MP ####[facility] Etvypqmqbp[address] [place], [place] [address]Dr. Airam Tripathi Chloride [Moles/Vol] 105 mmol/L Normal 98-107 [facility] Comment on above: Performed By: #### C MP ####[facility] [address]kzjb[address] [place], [place] [address]Dr. Airam Tripathi CO2 [Moles/Vol] 22.1 mmol/L Normal 21.0-32.0 [facility] Comment on above: Performed By: #### C MP ####[facility] [address] [place] [address]Dr. Airam Tripathi Creatinine [Mass/Vol] 1.06 mg/dL Critically high 0.55-1.02 [facility] Comment on above: Performed By: #### C MP ####[facility] [address] [place] [address]Dr. Airam Deuce EGFR-AF LATVIAN >60 Normal >=60 [facility] Comment on above: Performed By: #### C MP ####[facility] [address] [place] [address]Dr. Airam Deuce EGFR-NON AF LATVIAN 53 mL/min/1.73m2 Critically low >=60 [facility] Comment on above: Performed By: #### C MP ####[facility] Trrfwuvila4[address] [place] [address]Dr. Airam Deuce Globulin (S) [Mass/Vol] 2.6 g/dL Normal [facility] Comment on above: Performed By: #### C MP ####[facility] [address]pgua[address] [place] [address]Dr. Airam Tripathi Glucose [Mass/Vol] 109 mg/dL Critically high 74-106 [facility] Comment on above: Performed By: #### C MP ####[facility] Wnxespqcvu14[address] [place] [address]Dr. Airam Deuce Potassium [Moles/Vol] 4.2 mmol/L Normal 3.5-5.1 [facility] Comment on above: Performed By: #### C MP ####[facility] [address]cilirk[address] [place] [address]Dr. Airam Tripathi Protein [Mass/Vol] 5.4 g/dL Critically low 6.4-8.2 Th [facility] Comment on above: Performed By: #### C MP ####[facility] [address]allxvd[address] [place] [address]Dr. Airam Deuce Sodium [Moles/Vol] 135 mmol/L Critically low 136-145 Th [facility] Comment on above: Performed By: #### C MP ####[facility] [address]vrpvfgycf55[address] [place], [place] [address]Wn. Airam Tripathi Urea nitrogen [Mass/Vol] 15.0 mg/dL Normal 7.0-18.0 [facility] Comment on above: Performed By: #### C MP ####[facility] X[address]hrpsyr[address] [place], [place] [address]Ux. Airam Tripathi Urea nitrogen/Creatinine [Mass ratio] 14.2 mg/mg Normal [facility] Comment on above: Performed By: #### C MP ####[facility] [address]po[address] [place], [place] [address]Ob. Airam Tripathi Operative Reporton Operative Report MR#: [id number] S [facility] Pt. Name: Mabel Moser Room #: [...] subscapularis. 3. Right shoulder proximal biceps tenotomy. TRIPPER: Alex Serra M.D. ANESTHESIA: General. INDICATIONS: The [...] Reza M.D. Date Trans: 08/19/2021 11:37 Ivy/carter [id number] cc: Angle Santana M.D. [address] [place] [address] Normal The [facility] POC GLUCOSE LABon 08-19-2021 Glucose [Mass/Vol] 77 mg/dL Normal 70-100 [facility] Comment on above: Performed By: #### 8 5499 #### [facility] [address] [place], [place] [id number] [place] [address] 04-05-2021 CNPN Telephone (HEMASA) ----- MABEL MOSER ([id number]) 1960 F Date Time Provider Department 04/05/21 YEVGENIY FORD During your visit today, we recorded the following information about you: Chana Gallegos [facility] 04/05/2021 7:57 AM Signed Records faxed to the cancer center at [facility]. Patient to follow with Dr. Liu. [...] Encounter Status:Closed by CHANA LEE on 04/05/21 [facility] OBSOLETEon 01-11-2021 OBSOLETE Refill (HEMASA) ----- MABEL MOSER ([id number]) 1960 F Date Time Provider Department 01/11/21 [...] stage 3, GFR 30-59 ml/min ([facility]) [N18.30] Order(s):cyanocobalamin 1,000 mcg/mLINJECT 1 [...] YEVGENIY FORD on 01/12/21 [facility] Vital Signs Date Time Vital Sign Value Performing Clinician Facility 07-03-2023 12:00-0500 Body temperature 97.9 [degF] MD Angle Santana Work Phone: [facility] 07-03-2023 12:00-0500 Diastolic blood pressure 71 mm[Hg] MD Angle Santana Work Phone: [facility] 07-03-2023 12:00-0500 Heart rate 68 /min MD Angle Santana Work Phone: [facility] 07-03-2023 12:00-0500 Respiratory rate 16 /min MD Angle Santana Work Phone: [facility] 07-03-2023 12:00-0500 SaO2% (BldA) [Mass fraction] 100 % MD Angle Santana Work Phone: [facility] 07-03-2023 12:00-0500 Systolic blood pressure 121 mm[Hg] MD Angle Santana Work Phone: [facility] 07-03-2023 04:49-0500 Body weight 85.8 kg MD Angle Santana Work Phone: [facility] 06-30-2023 14:44-0500 Body height 157.48 cm MD Angle Santana Work Phone: [facility] 04-04-2023 16:20-0400 Body height 158.75 cm Raeann [employer] Other [facility] [employer] Other 04-04-2023 16:20-0400 Body mass index (BMI) [Ratio] 31.46 kg/m2 GREE [employer] Other [employer] Other 04-04-2023 16:20-0400 Body temperature 98 [degF] Raeann Webalos Other [employer] Other 04-04-2023 16:20-0400 Body weight 79.29 kg Raeann Webalos Other [employer] Other 04-04-2023 16:20-0400 Diastolic blood pressure 81 mm[Hg] Azariel Webalos Other [employer] Other 04-04-2023 16:20-0400 Respiratory rate 18 /min GREE [employer] Web[employer] Other [employer] Other 04-04-2023 16:20-0400 SaO2% (BldA) [Mass fraction] 98 % Raeann Kirkpatrick Other [facility] [employer] Other 04-04-2023 16:20-0400 Systolic blood pressure 133 mm[Hg] Raeann Kirkpatrick Other [facility] [employer] Other 10-28-2022 22:23-0400 Body temperature 97.4 [degF] MD Angle Santana Work Phone: [facility] 10-28-2022 22:00-0400 Diastolic blood pressure 74 mm[Hg] MD Angle Santana Work Phone: [facility] 10-28-2022 22:00-0400 Heart rate 72 /min MD Angle Santana Work Phone: [facility] 10-28-2022 22:00-0400 Respiratory rate 20 /min MD Angle Santana Work Phone: [facility] 10-28-2022 22:00-0400 SaO2% (BldA) [Mass fraction] 97 % MD Angle Santana Work Phone: [facility] 10-28-2022 22:00-0400 Systolic blood pressure 169 mm[Hg] MD Angle Santana Work Phone: [facility] 10-28-2022 17:54-0400 Body height 157.48 cm MD Angle Santana Work Phone: [facility] 10-28-2022 17:54-0400 Body weight 83.7 kg MD Angle Santana Work Phone: [facility] 09-27-2022 12:00-0400 Body height 158.75 cm Raeann Mishrajohnnie Other [facility] [employer] Other 09-27-2022 12:00-0400 Body mass index (BMI) [Ratio] 31.78 kg/m2 Raeann Kirkpatrick Other [employer] Other 09-27-2022 12:00-0400 Body temperature 96.1 [degF] Aziz Bakkendalls Other [employer] Other 09-27-2022 12:00-0400 Body weight 80.11 kg Azariel Bakhous Other [employer] Other 09-27-2022 12:00-0400 Diastolic blood pressure 82 mm[Hg] Aziz Bakhous Other [employer] Other 09-27-2022 12:00-0400 Respiratory rate 18 /min Azariel Bakhous Other [employer] Other 09-27-2022 12:00-0400 SaO2% (BldA) [Mass fraction] 99 % Aziz Bakhous Other [employer] Other 09-27-2022 12:00-0400 Systolic blood pressure 140 mm[Hg] Aziz Bakhous Other [employer] Other 04-12-2022 14:00-0400 Body height 158.75 cm Azariel Bakhous Other [employer] Other 04-12-2022 14:00-0400 Body mass index (BMI) [Ratio] 30.13 kg/m2 Aziz Bakhous Other [employer] Other 04-12-2022 14:00-0400 Body temperature 97.6 [degF] Aziz Bakhous Other [employer] Other 04-12-2022 14:00-0400 Body weight 75.93 kg Aziz Bakhous Other [employer] Other 04-12-2022 14:00-0400 Diastolic blood pressure 95 mm[Hg] Raeann Kirkpatrick Other [employer] Other 04-12-2022 14:00-0400 Respiratory rate 18 /min Raeann Kirkpatrick Other [employer] Other 04-12-2022 14:00-0400 SaO2% (BldA) [Mass fraction] 98 % Raeann Kirkpatrick Other [employer] Other 04-12-2022 14:00-0400 Systolic blood pressure 175 mm[Hg] Raeann Kirkpatrick Other [employer] Other 06-16-2021 16:20-0500 Body height 158.75 cm Los Grissom Other [employer] Other 06-16-2021 16:20-0500 Body mass index (BMI) [Ratio] 30.88 kg/m2 Los Grissom Other [employer] Other 06-16-2021 16:20-0500 Body temperature 96.4 [degF] Los Grissom Other [employer] Other 06-16-2021 16:20-0500 Body weight 77.84 kg Los Rascongerald Other [employer] Other 06-16-2021 16:20-0500 Diastolic blood pressure 88 mm[Hg] Los Rascongerald Other [employer] Other 06-16-2021 16:20-0500 Respiratory rate 18 /min Los Grissom Other [employer] Other 06-16-2021 16:20-0500 SaO2% (BldA) [Mass fraction] 99 % Los Grissom Other [employer] Other 06-16-2021 16:20-0500 Systolic blood pressure 137 mm[Hg] Los Grissom Other [employer] Other Encounters Encounter Date Encounter Type Care Provider Facility Start: 03-05-2024 ambulatory Migel MCKINNEY Facility :[facility] Start: 01-22-2024 End: 01-30-2024 Evaluation and management of inpatient ANGLE M [facility] Start: 12-21-2023 End: 12-21-2023 ambulatory [facility] Start: 10-13-2023 ambulatory [facility] Start: 09-30-2023 End: 10-01-2023 Evaluation and management of inpatient BALJINDER HUGHES [facility] Start: 08-16-2023 End: 08-16-2023 ambulatory MACIE [facility] Start: 08-01-2023 Evaluation and management of inpatient RAYRAY HARP [facility] Start: 08-01-2023 Evaluation and management of inpatient RAYRAY HARP [facility] Start: 07-31-2023 [facility] Start: 07-31-2023 Evaluation and management of inpatient STEPHANIE [facility] Start: 07-31-2023 Evaluation and management of inpatient JUDAH QUIROZ [facility] Start: 07-28-2023 Evaluation and management of inpatient RACHEL COHEN [facility] Start: 07-28-2023 End: 08-03-2023 Evaluation and management of inpatient [facility] Start: 07-13-2023 ambulatory [facility] Start: 07-11-2023 End: 07-11-2023 ambulatory Aziz Bakhous Other [employer] Other Start: 07-11-2023 Telephone encounter Aziz Bakhous [facility] Start: 06-29-2023 End: 07-03-2023 Evaluation and management of inpatient Jim Randhawa Facility:[facility] Start: 06-29-2023 End: 07-03-2023 Evaluation and management of inpatient MD Angle Santana Work Phone: [facility] [place] [facility] Work Phone: Start: 04-04-2023 End: 04-04-2023 ambulatory Aziz Bakhous Other [employer] Other Start: 04-04-2023 Office outpatient visit 25 minutes Aziz Bakhous [facility] Start: 04-03-2023 End: 04-03-2023 ambulatory Aziz Bakhous Other [employer] Other Start: 04-03-2023 Telephone encounter Aziz Bakhous [facility] Start: 02-22-2023 End: 02-22-2023 ambulatory RHIANNON BERNARD [facility] Start: 02-16-2023 ambulatory DUNCAN SONNY [facility] Start: 12-12-2022 End: 12-12-2022 ambulatory Aziz Bakhous Other [employer] Other Start: 12-12-2022 Telephone encounter Aziz Bakhous [facility] Start: 12-08-2022 End: 12-08-2022 ambulatory Aziz Bakhous Other [employer] Other Start: 12-08-2022 Telephone encounter Aziz Bakhous [facility] Start: 11-22-2022 End: 11-22-[address] ANGLE SANTANA . Facility:[facility] Start: 11-22-2022 End: 11-22-2022 ambulatory SADIE DEL CASTILLO . Facility:[facility] Start: 11-16-2022 End: 11-16-[address] ANGLE SANTANA . Facility:[facility] Start: 11-04-2022 End: 11-05-2022 ambulatory SADIE DEL CASTILLO . Facility:[facility] Start: 11-03-2022 End: 11-03-[address] ANGLE SANTANA . Facility:[facility] Start: 10-31-2022 ambulatory SANTOS ROUSSEAU . Facili ty:[facility] Start: 10-28-2022 End: 10-29-2022 Emergency department patient visit Favian Helm Facility:[facility] Start: 10-28-2022 End: 10-28-2022 Emergency department patient visit MD Angle Santana Work Phone: [facility] Work Phone: Start: 10-27-2022 End: [...] . Facility:[facility] Start: 09-27-2022 End: 09-27-2022 [facility] [employer] Other Start: 09-27-2022 Office outpatient visit 25 minutes Raeann Kirkpatrick [facility] [place] Start: 09-21-2022 End: 09-22-[address] ANGLE SANTANA . Facility:[facility] Start: 09-20-2022 End: 09-21-2022 ambulatory NARENDRANBARBI MURILLOSHMIPATHY . Facility:[facility] Start: 09-19-2022 End: 09-20-[address] ANGLE SANTANA . Facility:[facility] Start: 09-19-2022 End: 09-20-2022 ambulatory RAEANN KIRKPATRICK Facility:[facility] Start: 08-24-2022 End: 09-12-[address] ANGLE SANTANA . Facility:[facility] Start: 08-23-2022 End: 08-23-2022 ambulatory Sue Leiva Other [employer] Other Start: 08-23-2022 Office outpatient ne w 30 minutes Sue Leiva [facility] Start: 08-16-2022 End: 08-17-[address] [...] 04-12-2022 End: 04-12-2022 ambulatory Raeann Kirkpatrick Other [place] [employer] Other Start: 04-12-2022 Office outpatient visit 25 minutes Donnieariel Mishrajohnnie [facility] [place] Start: 04-06-2022 ambulatory [...] Start: 01-10-2022 End: 01-11-2022 ambulatory Robert Johnston Facility:[facility] Start: 01-06-2022 End: 01-07-[address] ANGLE SANTANA . Facility:[facility] Start: 12-30-2021 End: 01-19-[address] ANGLE SANTANA . Facility:[facility] Start: 12-23-2021 End: 12-24-2021 ambulatory NNAMDI DEJESUS . Facility:[facility] Start: 12-07-2021 End: 12-22-[address] ANGLE SANTANA . Facility:[facility] Start: 12-07-2021 End: 12-07-[address] ANGLE SANTANA . Facility:[facility] Start: 08-19-2021 End: 08-20-2021 ambulatory CARLOS REZA Facility:[facility] Start: 06-16-2021 End: 06-16-2021 ambulatory Los Grissom Other [facility] [employer] Other Start: 06-16-2021 Office outpatient visit 25 minutes Los Grissom [facility] Start: 01-14-2019 End: 01-14-2019 Patient encounter procedure [facility] Start: 12-03-2018 End: 12-03-2018 Patient encounter procedure [facility] Procedures Date Procedure Procedure Detail [...] Date Care Activity Detail Author Start: 07-03-2023 [facility] Start: 06-29-2023 Hospital admission [facility] Start: 06-29-2023 Referral to fern picker [facility] Blood chemistry [facility] Patient Education [facility] Work Phone: Patient referral [facility] Work Phone: Payers Date Payer Category Payer Medicare [id number] 2022 Self-pay [id number] 2017 Medicare [id number] 2017 Unknown [id number] 1960 Unknown [id number] 2.16.8 40.1.978262.3.579.2.173 1960 Unknown [id number] 2.16.8 40.1.290936.3.579.2.173 1962 Unknown [id number] 2.16.8 40.1.066317.3.579.2.647 1960 Unknown [id number] 2.16.8 40.1.950821.3.579.2.647 1962 Unknown [id number] 2.16.84 0.1.529327.3.579.2.593 1962 Unknown [id number] 2.16.84 0.1.730050.3.579.2.593 1962 Unknown [id number] 2.16.84 0.1.330723.3.579.2.593 1962 Unknown [id number] 2.16.84 0.1.352294.3.579.2.593 1962 Unknown [id number] 2.16.84 0.1.004382.3.579.2.593 1962 Unknown [id number] 2.16.84 0.1.839246.3.579.2.593 1962 Unknown [id number] 2.16.84 0.1.908571.3.579.2.593 1962 Unknown [id number] 2.16.84 0.1.859973.3.579.2.593 1962 Unknown [id number] 2.16.84 0.1.622590.3.579.2.593 1962 Unknown [id number] 2.16.84 0.1.621299.3.579.2.593 1962 Unknown [id number] 2.16.84 0.1.846981.3.579.2.593 1962 Unknown [id number] 2.16.84 0.1.676421.3.579.2.593 1962 Unknown [id number] 2.16.84 0.1.237779.3.579.2.593 1962 Unknown [id number] 2.16.84 0.1.334536.3.579.2.593 1962 Unknown [id number] 2.16.84 0.1.463499.3.579.2.593 1962 Unknown [id number] 2.16.84 0.1.102676.3.579.2.593 1962 Unknown [id number] 2.16.84 0.1.174328.3.579.2.593 1962 Unknown [id number] 2.16.84 0.1.764661.3.579.2.593 1962 Unknown [id number] 2.16.84 0.1.449311.3.579.2.593 1962 Unknown [id number] 2.16.84 0.1.814019.3.579.2.593 1962 Unknown [id number] 2.16.84 0.1.565069.3.579.2.593 1962 Unknown [id number] 2.16.84 0.1.980627.3.579.2.593 1962 Unknown [id number] 2.16.84 0.1.473163.3.579.2.593 1962 Unknown [id number] 2.16.84 0.1.019827.3.579.2.593 1962 Unknown [id number] 2.16.84 0.1.829537.3.579.2.593 1962 Unknown [id number] 2.16.84 0.1.396813.3.579.2.593 1962 Unknown [id number] 2.16.84 0.1.755179.3.579.2.593 1962 Unknown [id number] 2.16.84 0.1.461993.3.579.2.593 1962 Unknown [id number] 2.16.84 0.1.239406.3.579.2.593 1962 Unknown [id number] 2.16.84 0.1.572993.3.579.2.593 1962 Unknown [id number] 2.16.84 0.1.278872.3.579.2.593 1962 Unknown [id number] 2.16.84 0.1.138368.3.579.2.593 1962 Unknown [id number] 2.16.84 0.1.679342.3.579.2.593 1962 Unknown [id number] 2.16.84 0.1.447007.3.579.2.593 1962 Unknown [id number] 2.16.84 0.1.977381.3.579.2.593 1962 Unknown [id number] 2.16.84 0.1.130203.3.579.2.593 1962 Unknown [id number] 2.16.84 0.1.712264.3.579.2.593 1962 Unknown [id number] 2.16.84 0.1.213949.3.579.2.593 1962 Unknown [id number] 2.16.84 0.1.268584.3.579.2.593 1962 Unknown [id number] 2.16.84 0.1.003912.3.579.2.593 1962 Unknown [id number] 2.16.84 0.1.229480.3.579.2.593 1962 Unknown [id number] 2.16.84 0.1.245053.3.579.2.593 1962 Unknown [id number] 2.16.84 0.1.005480.3.579.2.593 1962 Unknown [id number] 2.16.84 0.1.774304.3.579.2.593 1962 Unknown [id number] 2.16.84 0.1.591799.3.579.2.593 1962 Unknown [id number] 2.16.84 0.1.504539.3.579.2.593 1962 Unknown [id number] 2.16.8 40.1.818319.3.579.2.1286 1962 Unknown [id number] 2.16.8 40.1.433021.3.579.2.727 1962 Unknown [id number] 2.16. 840.1.077694.3.579.2.175 1962 Unknown [id number] 2.16. 840.1.615078.3.579.2.175 1957 Medicaid [id number] Unknown [id number] 2.1 6.840.1.646997.19 Unknown [place] BC/BS [id number] Unknown [id number] 2.16.8 40.1.393848.3.579.2.531 Unknown [id number] 2.16.8 40.1.241101.3.579.2.531 Social History Date Type Detail Facility Unknown if ever smoked [employer] Other Sex Assigned At Sex Assigned At Bir th [facility] [employer] Other Start: 10-28-2022 End: 06-30-2023 Tobacco smoking status NHIS Never smoked tobacco (finding) [facility] Start: 1960 Sex Assigned At Female F [facility] [place] [facility]als Date Patient Goal Desired Activity /State Functional Status Date Assessment Result Facility 07-03-2023 Functional status Patient at Baseline [facility] Work Phone: Mental Status Date Assessment Result Facility 07-03-2023 Cognitive function Cognitive Sta tus Patient at Baseline [facility] Work Phone: Clinical Notes 06-16-2021 to 12-21-2023 Note Date & Type Note Facility 12-21-2023 Note [facility] Subjective Mabel Moser is a 63 [...] C heart failure with preserved ejection fraction (CMS/HCC) H/O gastric bypass Gouty arthropathy Gastroesophageal [...] side as late effect of cerebral infarction (CMS/[facility]) Pre-operative cardiovascular examination Acute on chronic systolic CHF (congestive heart failure) ([facility]/HCC) History of CVA in adulthood Hyperkalemia Hypomagnesemia Metabolic acidosis RENETTA (acute kidney injury) (CMS/HCC) Cardiorenal disease Acute heart failure (CMS/HCC) Polypharmacy Cerebral artery occlusion with cerebral infarction (CMS/HCC) Chronic CHF (congestive heart failure) ([facility]) Fall at home, initial encounter Irritable bowel syndrome Restless leg syndrome Traumatic closed fracture of C2 vertebra with minimal displacement, initial encounter ([facility]) Family History Family history unknown: Yes Social History Tobacco Use Smoking status: Never Smokeless tobacco: Never Substance Use Topics Alcohol use: Not Currently Drug use: Not Currently HPI Mabel is seen in follow-up. She is a 63-year-old woman with prior history of obesity status post bariatric surgery in 2000. In the past she was admitted to [facility] in 2019 with fluid overload and responded [...] t (more content not included)... [facility] 08-16-2023 Note [place] Electrophysiology Consult Note Reason for visit: HFU for acute CHF HPI: Mabel Moser is a 63 y.o. year old with past medical history of CHF, CKD IV, CAD, hypertension, GERD, hypothyroidism, CVA, seizure disorder, pulmonary hypertension, hx of DVT on eliquis. patient was admitted to [facility] for acute decompensated CHF 184# on scale at home, was 172# at [facility] but she feels well and appears compensated She is seeing lymph edema clinic twice a week, has follow up with fern picker next week She has taken her PRN bumex dose once since discharge because she felt as though she did not have a lot of urine output that day but has improved since She is doing much better following fluid restriction of about 3324-9662 mls / day [facility] discharge summary 08/03/23 Hospital course: Mabel Moser is an 63 y.o. female who came from home with Past medical history of CHF, CKD IV, CAD, hypertension, GERD, hypothyroidism, CVA, seizure disorder, pulmonary hypertension, hx of DVT on eliquis presents to [facility] as a direct admission from [facility] with fluid overload. Patient reports worsening bilateral [...] Anxiety Arthritis Asthma CHF (congestive heart failure) ([facility]/HCC) Coronary artery disease Depression Gastroenteritis Heart valve disease Hypertension Kidney failure Lumbar spondylolysis Stroke ([facility]/HCC) PSH: Past Surgical History: Procedure Laterality Date [...] Year: No Utilities: Not At Risk (07/28/2023) [facility] Utilities Threatened with loss of utilities: No [...] ev (more content not included)... [facility] 08-16-2023 Note Patient here for [facility] for CHF. Entresto was stopped and she [...] systems reviewed and are negative. [facility] 08-03-2023 Note ---- Attestation signed by [...] stable. Patient is to follow-up with her fern picker Navi Weems MD, PhD ---- Nephrology Progress [...] gastric bypass surgery who initially presented to [facility] with concerns for worsening lower extremity edema, after gaining 50 pounds within past week. Patient was evaluated by PCP who increased Bumex dose from 1 mg TID to 3 mg TID but patient had no improvement in symptoms. On presentation to [facility], patient's creatinine was 4.55 (baseline 1.8-2), phosphorus 11.2, potassium 5.7, magnesium 1.8, hemoglobin 9.2 and BUN 122. Patient was initiated on Bumex drip but developed hypotension and was changed to IV pushes. Patient was subsequently transferred to [facility] Upon assessment at [facility], patient has downtrend in Cr to [...] desvenlafaxine, (more content not included)... [facility] 08-03-2023 Note Active with [facility] home care. Sent the AVS. [facility] 08-03-2023 Note Physical Therapy Physical Therapy [...] (CMS/HCC) Closed fracture of trochanter of femur ([facility]) Clostridium difficile colitis Coronary arteriosclerosis Diffuse thyroid 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 thyrotoxicosis Fluid overload Dehydration Cortical age-related cataract of left eye COVID-19 Displacement of lumbar intervertebral disc without myelopathy Edema of lower extremity Edema Orthopnea Dyspnea Endogenous obesity Essential tremor Chronic diastolic heart failure, NYHA class 2 ([facility]) H/O gastric bypass Gouty arthropathy Gastroesophageal reflux disease Full thickness rotator cuff tear Fibromyalgia Low back pain Hip pain Hyperparathyroidism due to renal insufficiency ([facility]) Hypocalcemia Hypertensive disorder Hypoglycemia Hyponatremia Hypothyroidism Impingement syndrome of shoulder region Insomnia Anemia due to vitamin B12 deficiency Pulmonary hypertension ([facility]) Other fatigue Osteoarthritis of knee Morbid (severe) obesity due to excess calories ([facility]) Left atrial enlargement Lumbosacral neuritis Lumbosacral spondylosis without myelopathy Intractable migraine without status migrainosus Migraine Rheumatic tricuspid valve regurgitation Vitamin D deficiency Tympanic membrane perforation, right Transient ischemic attack Thoracic neuritis Tear of right rotator cuff Swallowing problem Sunburn of second degree Status post tympanoplasty Sprain of shoulder Seizure disorder ([facility]) Polyneuropathy associated with critical illness ([facility]) Polyneuropathy Osteoarthritis of spine with radiculopathy, lumbar region Obesity (BMI 30.0-34.9) Lumbar paraspinal muscle spasm Lateral femoral cutaneous neuropathy, left Internal derangement of right shoulder History of total right knee replacement Hemiparesis, left ([facility]) Hemiparesis due to old stroke ([facility]) Difficulty walking Depression Constipation Abnormal blood chemistry 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 ([facility]) Pre-operative cardiovascular examination Acute on chronic systolic CHF (congestive heart failure) ([facility]) History of CVA in adulthood Hyperkalemia Hypomagnesemia Metabolic acidosis RENETTA (acute kidney injury) ([facility]) Cardiorenal disease Past Medical History: Diagnosis Date Anxiety Arthritis Asthma CHF (congestive heart failure) ([facility]) Coronary artery disease Depression Gastroenteritis Heart valve disease Hypertension Kidney failure Lumbar spondylolysis Stroke ([facility]) Past Surgical History: Procedure Laterality Date APPENDECTOMY [...] Level (more content not included)... [facility] 08-03-2023 Note Clinical Nutrition A ssessment: Name: Mabel Moser Room: [address] [place] [address] Date: 1960 Date of Visit: 08/03/23 Admission Dx: Acute on chronic systolic CHF (congestive heart failure) ([facility]) [I50.23] Reason for assessment: length of stay Information obtained from: patient, medical record, and nursing Past Medical History: Diagnosis Date Anxiety Arthritis Asthma CHF (congestive heart failure) ([facility]) Coronary artery disease Depression Gastroenteritis Heart valve disease Hypertension Kidney failure Lumbar spondylolysis Stroke ([facility]) Current Medications: amitriptyline, 300 mg, oral, Nightly [...] 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 Pt reported [...] Sensation: Tingling, Numbness LUE Sensation: Numbness, Tingling (Unemployment Insurance Director strength not assessed by RD) Patient at risk for malnutrition according to hospital criteria, but does not meet the clinical characteristics per the Academy of Nutrition (more content not included)... [facility] 08-03-2023 Note Occupational Therapy Occupational Therapy [...] Morbid (severe) obesity due to excess calories ([facility]) Left atrial enlargement Lumbosacral neuritis Lumbosacral spondylosis without myelopathy Intractable migraine without status migrainosus Migraine Rheumatic tricuspid valve regurgitation Vitamin D deficiency Tympanic membrane perforation, right Transient ischemic attack Thoracic neuritis Tear of right rotator cuff Swallowing problem Sunburn of second degree Status post tympanoplasty Sprain of shoulder Seizure disorder ([facility]) Polyneuropathy associated with critical illness ([facility]) Polyneuropathy Osteoarthritis of spine with radiculopathy, lumbar region Obesity (BMI 30.0-34.9) Lumbar paraspinal muscle spasm Lateral femoral cutaneous neuropathy, left Internal derangement of right shoulder History of total right knee replacement Hemiparesis, left ([facility]) Hemiparesis due to old stroke ([facility]) Difficulty walking Depression Constipation Abnormal blood chemistry 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 ([facility]) Pre-operative cardiovascular examination Acute on chronic systolic CHF (congestive heart failure) ([facility]) History of CVA in adulthood Hyperkalemia Hypomagnesemia Metabolic acidosis RENETTA (acute kidney injury) ([facility]) Cardiorenal disease Past Medical History: Diagnosis Date Anxiety Arthritis Asthma CHF (congestive heart failure) ([facility]) Coronary artery disease Depression Gastroenteritis Heart valve disease Hypertension Kidney failure Lumbar spondylolysis Stroke ([facility]) Past Surgical History: Procedure Laterality Date APPENDECTOMY [...] for (more content not included)... [facility] 08-03-2023 Note Hospital Medicine Discharge Summary Final Discharge Diagnosis: Acute on chronic systolic CHF (congestive heart failure) ([facility]/HCC) RENETTA on CKD IV Cardiorenal syndrome Mild pulmonary hypertension-as evidenced on most recent right heart cath (11/2022) Essential Hypertension Hypothyroidism Alpha-1 antitrypsin carrier Morbid obesity status post gastric bypass surgery in 1999 Admission Diagnosis: Acute on chronic systolic CHF (congestive heart failure) ([facility]) [I50.23] Hospital course: Mabel Moser is an 63 y.o. female who came from home with Past medical history of CHF, CKD IV, CAD, hypertension, GERD, hypothyroidism, CVA, seizure disorder, pulmonary hypertension, hx of DVT on eliquis presents to [facility] as a direct admission from [facility] with fluid overload. Patient reports worsening bilateral [...] Center 08/08/2023 11:40 AM Macie Garcia NP [facility] Your medication list START taking these [...] Medications These medications were sent to [facility] - [address] [place] [address] [address] [facility] [place] [address], [facility] [address] bumetanide 1 mg tablet carvedilol 6.25 mg tablet Mabel is allergic to betadine [povidone-iodine], cephalexin, ciprofloxacin, gabapentin, iodine, pregabalin, sulfa (sulfonamide antibiotics), sulfamethoxazole-trimethoprim, and amoxicillin-pot clavulanate. Disposition: Home-Health Care [facility] (06) Discharge Condition: Stable Code Status: Full [...] Resul (more content not included)... [facility] 08-02-2023 Note ---- Attestation signed by [...] gastric bypass surgery who initially presented to [facility] with concerns for worsening lower extremity edema, after gaining 50 pounds within past week. Patient was evaluated by PCP who increased Bumex dose from 1 mg TID to 3 mg TID but patient had no improvement in symptoms. On presentation to [facility], patient's creatinine was 4.55 (baseline 1.8-2), phosphorus 11.2, potassium 5.7, magnesium 1.8, hemoglobin 9.2 and BUN 122. Patient was initiated on Bumex drip but developed hypotension and was changed to IV pushes. Patient was subsequently transferred to [facility] Upon assessment at [facility], patient has downtrend in Cr to [...] or (more content not included)... [facility] 08-02-2023 Note Hospital Medicine Daily Progress Note - 08/02/2023 12:05 PM; Room: [address] [place] [address] Admission: 07/28/2023 4:37 PM; Length of stay: 5 days THE HOSPITALIST TEAM PREFERS TO USE [employer] CHAT FOR COMMUNICATION 7AM-7PM. IF I DO NOT RESPOND WITHIN 15 MINUTES, PLEASE PAGE ME/CALL THROUGH THE CUSTOMS OPENER VERIFIER PACKER. FROM 7PM-7AM, PLEASE PAGE [phone](COVR) Code Status: Full Code Barriers to Discharge: Renal failure Expected Discharge Date: pending diuretics optimization Discharge Destination: home Overview Patient is seen for evaluation and management of ARF. Subjective Mabel Ivy Moser was seen and examined at bedside. [...] on chronic systolic CHF (congestive heart failure) ([facility]) Active Problems: Benign essential hypertension CKD (chronic kidney disease) stage 3, GFR 30-59 ml/min ([facility]) Coronary arteriosclerosis Gastroesophageal reflux disease Hypothyroidism Pulmonary hypertension ([facility]) Seizure disorder ([facility]) Obesity (BMI 30.0-34.9) History of CVA in adulthood Hyperkalemia Hypomagnesemia Metabolic acidosis RENETTA (acute kidney injury) ([facility]) Cardiorenal disease Assessment and Plan Acute decompensated [...] AU (more content not included)... [facility] 08-02-2023 Note Subjective Follow up for: lower extremity edema with orthopnea, heart failure exacerbation. HPI: Mabel Moser is a 63 y.o. female with PMH of alpha-1 antitrypsin carrier, HFpEF, CKD 3A, HTN, GERD, hypothyroidism, CVA, seizures, DVT (on Eliquis at home), morbid obesity s/p gastric bypass surgery who initially presented to [facility] with concerns for bilateral worsening lower extremity [...] duplex ultrasound. She was then transferred to [facility]. At [facility], her creatinine did improved slightly to 3.64, hemoglobin 8.5, troponin 0.01, BNP 265. She was initiated on IV Lasix 80 mg 3 times daily. Patient tells me that she did have a TTE performed at [facility] 2 months back but there are no [...] in the past she was admitted to [facility] in 2019 with fluid overload and responded [...] feels as though she is back to [facility] She denies CP, worsened SOB, palpitations, lightheadedness [...] Sk (more content not included)... [facility] 08-01-2023 Note Subjective Follow up for: lower extremity edema with orthopnea, heart failure exacerbation. HPI: Mabel Moser is a 63 y.o. female with PMH of alpha-1 antitrypsin carrier, HFpEF, CKD 3A, HTN, GERD, hypothyroidism, CVA, seizures, DVT (on Eliquis at home), morbid obesity s/p gastric bypass surgery who initially presented to [facility] with concerns for bilateral worsening lower extremity [...] duplex ultrasound. She was then transferred to [facility]. At [facility], her creatinine did improved slightly to 3.64, hemoglobin 8.5, troponin 0.01, BNP 265. She was initiated on IV Lasix 80 mg 3 times daily. Patient tells me that she did have a TTE performed at [facility] 2 months back but there are no [...] in the past she was admitted to [facility] in 2019 with fluid overload and responded [...] t (more content not included)... [facility] 08-01-2023 Note ---- Attestation signed by [...] gastric bypass surgery who initially presented to [facility] with concerns for worsening lower extremity edema, after gaining 50 pounds within past week. Patient was evaluated by PCP who increased Bumex dose from 1 mg TID to 3 mg TID but patient had no improvement in symptoms. On presentation to [facility], patient's creatinine was 4.55 (baseline 1.8-2), phosphorus 11.2, potassium 5.7, magnesium 1.8, hemoglobin 9.2 and BUN 122. Patient was initiated on Bumex drip but developed hypotension and was changed to IV pushes. Patient was subsequently transferred to [facility] Upon assessment at [facility], patient has downtrend in Cr to [...] oral (more content not included)... [facility] 08-01-2023 Note 08/01/23 0959 Admission Assessment Questions Verify insurance with patient Yes ([facility] Medicare/[place] Medicaid) Do you understand medical disease or what brought you into the hospital? Yes ( I'm in kidney failure & I went into fluid overload ) Who is your current PCP? Angle Santana MD Can I schedule a follow up appointment for you at the time of discharge? No ( I go to [facility] for alot of my physicians ) Do you understand why you are taking your current medications? Yes Are you taking your medications as prescribed? Yes Did patient provide teach back? No Would you like use our pharmacy iMeds to fill your new medications at the time of Discharge? Yes Does the patient have a case loader operator assigned to them through their insurance? No [...] SNF about 8 hrs ago & also [facility] in [place]) Assistive Device Cane;Grab bars;Raised toilet seat;Walker;Wheelchair (has [...] you able to send link and activate [email or web address]? MyChart already active Screen completed. Await medical stability: diurese with Lasix 80 mg IV q12hr (possibly transition to oral today), ?medically ready tomorrow, Check Renal US today, Creatine up 2.68 today<- 2.51<-3.64, Mag 1.8, Hgb 9.9<-9.1, Follow-up with Nephrology recommendations, Optimize HF medications. Dc Plan: Home, resume [facility], Await PT/OT evaluations today to make sure this is a safe dc plan. [facility] 08-01-2023 Note ---- Attestation signed by [...] Progress Note - 08/01/2023 11:05 AM; Room: [facility] Admission: 07/28/2023 4:37 PM; Length of stay: 4 days THE HOSPITALIST TEAM PREFERS TO USE [employer] CHAT FOR COMMUNICATION 7AM-7PM. IF I DO NOT RESPOND WITHIN 15 MINUTES, PLEASE PAGE ME/CALL THROUGH THE CUSTOMS OPENER VERIFIER PACKER. FROM 7PM-7AM, PLEASE PAGE [phone](COVR) Code Status: Full Code Barriers to Discharge: [...] on chronic systolic CHF (congestive heart failure) ([facility]) Active Problems: Benign essential hypertension CKD (chronic kidney disease) stage 3, GFR 30-59 ml/min ([facility]) Coronary arteriosclerosis Gastroesophageal reflux disease Hypothyroidism Pulmonary hypertension ([facility]) Seizure disorder ([facility]) Obesity (BMI 30.0-34.9) History of CVA in adulthood Hyperkalemia Hypomagnesemia Metabolic acidosis RENETTA (acute kidney injury) ([facility]) Cardiorenal disease Assessment and Plan Acute decompensated [...] h (more content not included)... [facility] 07-31-2023 Note ---- Attestation signed by [...] tomorrow. She has no urgent need for ORDER CLERK, she will need to follow up with her fern picker upon discharge. ---- Nephrology Progress Note Patient [...] gastric bypass surgery who initially presented to [facility] with concerns for worsening lower extremity edema, after gaining 50 pounds within past week. Patient was evaluated by PCP who increased Bumex dose from 1 mg TID to 3 mg TID but patient had no improvement in symptoms. On presentation to [facility], patient's creatinine was 4.55 (baseline 1.8-2), phosphorus 11.2, potassium 5.7, magnesium 1.8, hemoglobin 9.2 and BUN 122. Patient was initiated on Bumex drip but developed hypotension and was changed to IV pushes. Patient was subsequently transferred to [facility]. Upon assessment at [facility], patient has downtrend in Cr to [...] shifts: In: 1350 (16.3 mL/kg) [P.O.:1350] Out: 01069 (128.3 mL/kg) [Urine:25633 (3.6 mL/kg/hr)] Weight: 83 kg Vital signs: [...] periph (more content not included)... [facility] 07-31-2023 Note Subjective Follow up for: lower extremity edema with orthopnea, heart failure exacerbation. HPI: Mabel Moser is a 63 y.o. female with PMH of alpha-1 antitrypsin carrier, HFpEF, CKD 3A, HTN, GERD, hypothyroidism, CVA, seizures, DVT (on Eliquis at home), morbid obesity s/p gastric bypass surgery who initially presented to [facility] with concerns for bilateral worsening lower extremity [...] duplex ultrasound. She was then transferred to [facility]. At [facility], her creatinine did improved slightly to 3.64, hemoglobin 8.5, troponin 0.01, BNP 265. She was initiated on IV Lasix 80 mg 3 times daily. Patient tells me that she did have a TTE performed at [facility] 2 months back but there are no [...] in the past she was admitted to [facility] in 2019 with fluid overload and responded [...] an (more content not included)... [facility] 07-31-2023 Note Pt admitted to [facility] for acute on chronic systolic HF; hx of CHF, CKD 3, CAD, hypertension, GERD, hypothyroidism, CVA, seizure disorder, pulmonary hypertension, hx of DVT. Pt has echo scheduled. I will wait for current echo results to determine pt's eligibility to participate in cardiac rehab (CR) therapy with HF diagnosis and follow up with pt, if appropriate. ALECIA Franco veterinary practice manager Outpatient Coordinator Cardiopulmonary Rehab [facility] 07-31-2023 Note Hospital Medicine Daily Progress Note - 07/31/2023 10:40 AM; Room: [address] [place] [address] Admission: 07/28/2023 4:37 PM; Length of stay: 3 days THE HOSPITALIST TEAM PREFERS TO USE EPIC CHAT FOR COMMUNICATION 7AM-7PM. IF I DO NOT RESPOND WITHIN 15 MINUTES, PLEASE PAGE ME/CALL THROUGH THE CUSTOMS OPENER VERIFIER PACKER. FROM 7PM-7AM, PLEASE PAGE [phone](COVR) Code Status: Full Code Barriers to Discharge: [...] on chronic systolic CHF (congestive heart failure) ([facility]) Active Problems: Benign essential hypertension CKD (chronic kidney disease) stage 3, GFR 30-59 ml/min ([facility]) Coronary arteriosclerosis Gastroesophageal reflux disease Hypothyroidism Pulmonary hypertension ([facility]) Seizure disorder ([facility]) History of CVA in adulthood Hyperkalemia Hypomagnesemia Metabolic acidosis RENETTA (acute kidney injury) ([facility]) Cardiorenal disease Assessment and Plan Acute decompensated [...] -- -- 1.15* Chemistry: Results from [facility] (more content not included)... [facility] 07-30-2023 Note ---- Attestation signed by [...] bid from tid. No urgent need for ORDER CLERK, will continue to follow along. ---- Nephrology [...] gastric bypass surgery who initially presented to [facility] with concerns for worsening lower extremity edema, after gaining 50 pounds within past week. Patient was evaluated by PCP who increased Bumex dose from 1 mg TID to 3 mg TID but patient had no improvement in symptoms. On presentation to [facility], patient's creatinine was 4.55 (baseline 1.8-2), phosphorus 11.2, potassium 5.7, magnesium 1.8, hemoglobin 9.2 and BUN 122. Patient was initiated on Bumex drip but developed hypotension and was changed to IV pushes. Patient was subsequently transferred to [facility] Upon assessment at [facility], patient has downtrend in Cr to [...] AND* (more content not included)... [facility] 07-30-2023 Note Subjective Reason for Consult: Bilaterally worsening lower extremity edema with orthopnea, concerning for heart failure exacerbation. HPI: Mabel Moser is a 63 y.o. female with PMH of alpha-1 antitrypsin carrier, HFpEF, CKD 3A, HTN, GERD, hypothyroidism, CVA, seizures, DVT (on Eliquis at home), morbid obesity s/p gastric bypass surgery who initially presented to [facility] with concerns for bilateral worsening lower extremity [...] duplex ultrasound. She was then transferred to [facility]. At [facility], her creatinine did improved slightly to 3.64, hemoglobin 8.5, troponin 0.01, BNP 265. She was initiated on IV Lasix 80 mg 3 times daily. Patient tells me that she did have a TTE performed at [facility] 2 months back but there are no [...] in the past she was admitted to [facility] in 2019 with fluid overload and responded [...] Thought (more content not included)... [facility] 07-30-2023 Note Hospital Medicine Daily Progress Note - 07/30/2023 8:15 AM; Room: [address] [place] [address] Admission: 07/28/2023 4:37 PM; Length of stay: 2 days THE HOSPITALIST TEAM PREFERS TO USE EPIC CHAT FOR COMMUNICATION 7AM-7PM. IF I DO NOT RESPOND WITHIN 15 MINUTES, PLEASE PAGE ME/CALL THROUGH THE CUSTOMS OPENER VERIFIER PACKER. FROM 7PM-7AM, PLEASE PAGE [phone](COVR) Code Status: Full Code Barriers to Discharge: [...] on chronic systolic CHF (congestive heart failure) ([facility]) Active Problems: Benign essential hypertension CKD (chronic kidney disease) stage 3, GFR 30-59 ml/min ([facility]) Coronary arteriosclerosis Gastroesophageal reflux disease Hypothyroidism Pulmonary hypertension ([facility]) Seizure disorder ([facility]) History of CVA in adulthood Hyperkalemia Hypomagnesemia Metabolic acidosis RENETTA (acute kidney injury) ([facility]) Assessment and Plan Acute decompensated HF - [...] Invest (more content not included)... [facility] 07-29-2023 Note Hospital Medicine Daily Progress Note - 07/29/2023 4:06 PM; Room: 5183/5183-01 Admission: 07/28/2023 4:37 PM; Length of stay: 1 days THE HOSPITALIST TEAM PREFERS TO USE Trippeo CHAT FOR COMMUNICATION 7AM-7PM. IF I DO NOT RESPOND WITHIN 15 MINUTES, PLEASE PAGE ME/CALL THROUGH THE CUSTOMS OPENER VERIFIER PACKER. FROM 7PM-7AM, PLEASE PAGE [phone](COVR) Code Status: Full Code Barriers to Discharge: [...] on chronic systolic CHF (congestive heart failure) ([facility]) Active Problems: Benign essential hypertension CKD (chronic kidney disease) stage 3, GFR 30-59 ml/min ([facility]) Coronary arteriosclerosis Gastroesophageal reflux disease Hypothyroidism Pulmonary hypertension ([facility]) Seizure disorder ([facility]) History of CVA in adulthood Hyperkalemia Hypomagnesemia [...] -- (more content not included)... [facility] 07-28-2023 Note Hospital Medicine History and Physical 07/28/2023 6:16 PM THE HOSPITALIST TEAM PREFERS TO USE Trippeo CHAT FOR COMMUNICATION 7AM-7PM. IF I DO NOT RESPOND WITHIN 15 MINUTES, PLEASE PAGE ME/CALL THROUGH THE CUSTOMS OPENER VERIFIER PACKER. FROM 7PM-7AM, PLEASE PAGE [phone](COVR) Chief Complaint Direct admission with fluid overload History of Present Illness Mabel Moser is an 63 y.o. female who came from home with Past medical history of CHF, CKD 3, CAD, hypertension, GERD, hypothyroidism, CVA, seizure disorder, pulmonary hypertension, hx of DVT on eliquis presents to [facility] as a direct admission from [facility] with fluid overload. Patient reports worsening bilateral lower extremity edema over the last week. Reports a 50 pound weight gain within that same time period. States that she saw her PCP as well as her sql dba this past week who increased her Bumex to 3 mg 3 times daily without relief. Patient saw her PCP yesterday who sent her directly to [facility] for IV diuresis. Upon arrival there, patient [...] her normal limit, patient was transferred to [facility] for higher level of care. Upon arrival to [facility] repeat labs are completed showing pH 7.28, hemoglobin 8.5, magnesium 1.6, BUN 109, creatinine 3.64, BNP 265. Spoke with fern picker on the phone as patient with persistent [...] on chronic systolic CHF (congestive heart failure) ([facility]) 07/28/2023 Polyneuropathy associated with critical illness ([facility]) 11/27/2022 Polyneuropathy 11/27/2022 Osteoarthritis of spine with radiculopathy, lumbar region 11/27/2022 Obesity (BMI 30-39.9) 11/27/2022 Lumbar paraspinal muscle spasm 11/27/2022 Lateral femoral cutaneous neuropathy, left 11/27/2022 Internal derangement of right shoulder 11/27/2022 History of total right knee replacement 11/27/2022 Hemiparesis, left ([facility]) 11/27/2022 Hemiparesis due to old stroke ([facility]) 11/27/2022 Dif (more content not included)... [facility] 07-13-2023 Note [place] [facility] - [facility] Subjective Mabel Moser is a 63 y.o. year old female patient being seen for 6 mo follow up chronic diastolic heart failure, CKD, and CAD. Says she saw Dr. Santana yesterday and he raised her spironolactone to 100mg, which she takes PRN. She was seen in [facility] 2 weeks ago for LE [...] the past she was admitted to [facility] in 2019 with fluid overload and responded [...] a (more content not included)... [facility] 07-03-2023 Progress note Note Date/Time July 03, 2023 12:18pm [facility] [address] [place] [address] Nephrology Progress Note Signed Patient: Mabel Moser MR#: [id number] : 1960 Acct:[id number] Age/Sex: 63 / F Adm Date: 4 Loc: 3T Room: [address] [place] [address] Type: ADM IN Attending Dr: Jim Randhawa [...] BID@0800,1600 LOREN Stop: 06/29/24 07:59 Last Admin: 07/03/23 08:14 [...] Mcg/Hour Patch.Td72) 100 mcg TRANSDERML Q72H [facility]; Protocol Last Admin: 07/03/23 08:12 Dose: 100 mcg Ferrous Sulfate (Ferrous Sulfate 324 Mg Tablet.Dr) 324 mg PO DAILY [facility] Stop: 06/29/24 08:59 Last Admin: 07/03/23 08:13 Dose: 324 mg Gabapentin (Gabapentin 100 Mg Capsule) 100 mg PO TID LOREN Stop: 06/29/24 08:59 Last Admin: 07/03/23 08:13 Dose: 100 mg Guaifenesin/Dextromethorphan (Guaif/Dextromethorphan Syrup 10 Ml Udc) 10 ml PO Q8H PRN PRN Reason: Cough Stop: 06/28/24 21:34 Heparin Sodium (Porcine) (Heparin 5,000 Unit/Ml Vial) 5,000 unit SUBCUT Q12HR [facility] Stop: 06/29/24 08:59 Last Admin: 07/03/23 08:14 Dose: 5,000 unit Levothyroxine Sodium (Levothyroxine 100 Mcg Tablet) 100 mcg PO DAILY@0630 [facility] Stop: 06/29/24 06:29 Last Admin: 07/03/23 06:23 Dose: 100 mcg Linaclotide (Linaclotide 290 Mcg Capsule) 290 mcg PO Q48HR [facility] Stop: 06/29/24 08:59 Last Admin: 07/02/23 08:59 Dose: 290 mcg Liothyronine Sodium (Liothyronine 25 Mcg Tablet) 25 mcg PO DAILY@0630 [facility] Stop: 06/29/24 10:59 Last Admin: 07/03/23 06:23 Dose: 25 mcg Loratadine (Loratadine 10 Mg Tablet) 10 mg PO DAILY PRN PRN Reason: Allergy Symptoms Stop: 06/29/24 06:54 Melatonin (Melatonin 5 Mg Tablet) 5 mg PO QHS PRN PRN Reason: Insomnia Stop: 06/28/24 21:34 Metoprolol Tartrate (Metoprolol Tartrate 25 Mg Tablet) 25 mg PO BID [facility] Stop: 06/29/24 20:59 Last Admin: 07/03/23 [...] baseline Documented By: Raeann Kirkpatrick MD 07/03/23 121 Signed By: <Electronically signed by Raeann Kirkpatrick MD> 07/03/23 1218 [facility] Work Phone: 1(916) 927-443901-07-2024 Progress note Author Jim Randhawa [facility] July 02, 2023 11:26am Note Date/Time July 02, 2023 11 :26am [facility] [address] [place] [address] Hospitalist Progress Note Signed Patient: Mabel Moser MR#: [id number] : 1960 Acct:[id number] Age/Sex: 63 / F Adm Date: 4 Loc: 3T Room: [address] [place] [address] Type: ADM IN Attending Dr: Jim Randhawa [...] Tablet PO 06/29/24 20:59 25 mg BID LROEN Administration Ondansetron HCl 4 mg 06/29/23 21:35 [...] signed by Jim Randhawa DO> 07/02/23 1126 [facility] Work Phone: 1([phone]) 979-821601-07-2024 Progress note Author Los Grissom [facility] July 02, 2023 10:42am Note Date/Time July 02, 2023 10 :42am [facility] [address] [place] [address] Nephrology Progress Note Signed Patient: Mabel Moser MR#: [id number] : 1960 Acct:[id number] Age/Sex: 63 / F Adm Date: 4 Loc: Room: [address] [place] [address] Type: ADM IN Attending Dr: Jim Randhawa [...] 73 18 94/58 L 100 Room Air 01/07/24 08:50 07/02/23 08:50 07/02/23 08:50 07/02/23 08:50 [...] Ml Vial) 1 mg IV-PUSH BID@0800,1600 [facility] Stop: 06/29/24 07:59 Last Admin: 07/02/23 08:55 Dose: 1 mg Calcium Acetate (Calcium Acetate 667 Mg Capsule) 667 mg PO BID.WITH.MEALS [facility] Stop: 06/29/24 07:59 Last Admin: 07/02/23 08:55 Dose: 667 mg Duloxetine HCl (Duloxetine 60 Mg Capsule.) 120 mg PO DAILY [facility] Stop: 06/29/24 08:59 Last Admin: 07/02/23 08:59 Dose: 120 mg Fentanyl (Fentanyl Patch 100 Mcg/Hour Patch.Td72) 100 mcg TRANSDERML Q72H [facility]; Protocol Last Admin: 06/30/23 09:31 Dose: 100 mcg Ferrous Sulfate (Ferrous Sulfate 324 Mg Tablet.) 324 mg PO DAILY [facility] Stop: 06/29/24 08:59 Last Admin: 07/02/23 08:55 Dose: 324 mg Gabapentin (Gabapentin 100 Mg Capsule) 100 mg PO TID [facility] Stop: 06/29/24 08:59 Last Admin: 07/02/23 08:55 Dose: 100 mg Guaifenesin/Dextromethorphan (Guaif/Dextromethorphan Syrup 10 Ml Udc) 10 ml PO Q8H PRN PRN Reason: Cough Stop: 06/28/24 21:34 Heparin Sodium (Porcine) (Heparin 5,000 Unit/Ml Vial) 5,000 unit SUBCUT Q12HR [facility] Stop: 06/29/24 08:59 Last Admin: 07/02/23 08:55 Dose: 5,000 unit Levothyroxine Sodium (Levothyroxine 100 Mcg Tablet) 100 mcg PO DAILY@0630 [facility] Stop: 06/29/24 06:29 Last Admin: 07/02/23 05:48 Dose: 100 mcg Linaclotide (Linaclotide 290 Mcg Capsule) 290 mcg PO Q48HR [facility] Stop: 06/29/24 08:59 Last Admin: 07/02/23 08:59 Dose: 290 mcg Liothyronine Sodium (Liothyronine 25 Mcg Tablet) 25 mcg PO DAILY@0630 [facility] Stop: 06/29/24 10:59 Last Admin: 07/02/23 05:48 Dose: 25 mcg Loratadine (Loratadine 10 Mg Tablet) 10 mg PO DAILY PRN PRN Reason: Allergy Symptoms Stop: 06/29/24 06:54 Melatonin (Melatonin 5 Mg Tablet) 5 mg PO QHS PRN PRN Reason: Insomnia Stop: 06/28/24 21:34 Metoprolol Tartrate (Metoprolol Tartrate 25 Mg Tablet) 25 mg PO BID [facility] Stop: 06/29/24 20:59 Last Admin: 07/02/23 08:55 Dose: 25 mg Ondansetron HCl (Ondansetron 4 Mg/2 Ml Vial) 4 mg IV-PUSH Q8H PRN PRN Reason: Nausea And Vomiting Stop: 06/28/24 21:34 Oxycodone/Acetaminophen (Oxycodone/Acetaminophen 5-325 Mg Tablet) 2 tab PO Q6H PRN PRN Reason: Pain Last Admin: 07/02/23 02:00 Dose: 2 tab Pantoprazole Sodium (Pantoprazole 40 Mg Tablet.Dr) 40 mg PO BID [facility] Stop: 06/29/24 08:59 Last Admin: 07/02/23 08:55 Dose: 40 mg Primidone (Primidone 50 Mg Tablet) 100 mg PO HS [facility] Stop: 06/29/24 21:59 Last Admin: 07/01/23 21:21 Dose: 100 mg Sevelamer Carbonate (Sevelamer Carbonate 800 Mg Tablet) 800 mg PO TID.WITH.MEALS [facility] Stop: 06/29/24 11:59 Last Admin: 07/02/23 [...] signed by MD Los Grissom> 07/02/23 1042 [facility] Work Phone: 1([phone] 117-214401-06-2024 Progress note Author Jim Randhawa [facility] July 01, 2023 1:52pm Note Date/Time July 01, 2023 1: 37pm [facility] [address] [place] [address] Hospitalist Progress Note Signed Patient: Mabel Moser MR#: [id number] : 1960 Acct:[id number] Age/Sex: 63 / F Adm Date: 4 Loc: Room: [address] [place] [address] Type: ADM IN Attending Dr: Jim Randhawa [...] 06/30/23 09:00 07/01/23 08:20 Duloxetine 60 Mg Capsule.Dr MCMANUS 06/29/24 08:59 [...] signed by Jim Randhawa DO> 07/01/23 1352 [facility] Work Phone: 1([phone]) 388-657901-06-2024 Progress note Author Los Grissom [facility] July 01, 2023 10:16am Note Date/Time July 01, 2023 10 :16am [facility] [address] [place] [address] Nephrology Progress Note Signed Patient: Mabel Moser MR#: [id number] : 1960 Acct:[id number] Age/Sex: 63 / F Adm Date: 4 Loc: Room: [address] [place] [address] Type: ADM IN Attending Dr: Jim Randhawa [...] Mg Tablet) 150 mg PO QHS [facility] Stop: 06/29/24 21:59 Last Admin: 06/30/23 21:17 Dose: 150 mg Aripiprazole (Aripiprazole 2 Mg Tablet) 2 mg PO DAILY [facility] Stop: 06/29/24 08:59 Last Admin: 07/01/23 08:21 Dose: 2 mg Bisacodyl (Bisacodyl 5 Mg Tablet.) 10 mg PO DAILY PRN PRN Reason: Constipation Stop: 06/28/24 21:34 Bumetanide (Bumetanide 1 Mg/4 Ml Vial) 1 mg IV-PUSH BID@0800,1600 [facility] Stop: 06/29/24 07:59 Last Admin: 07/01/23 08:21 Dose: 1 mg Calcium Acetate (Calcium Acetate 667 Mg Capsule) 667 mg PO BID.WITH.MEALS [facility] Stop: 06/29/24 07:59 Last Admin: 07/01/23 08:20 Dose: 667 mg Duloxetine HCl (Duloxetine 60 Mg Capsule.Dr) 120 mg PO DAILY LOREN Stop: 06/29/24 08:59 Last Admin: 07/01/23 08:20 Dose: 120 mg Fentanyl (Fentanyl Patch 100 Mcg/Hour Patch.Td72) 100 mcg TRANSDERML Q72H [facility]; Protocol Last Admin: 06/30/23 09:31 Dose: 100 mcg Ferrous Sulfate (Ferrous Sulfate 324 Mg Tablet.Dr) 324 mg PO DAILY [facility] Stop: 06/29/24 08:59 Last Admin: 07/01/23 08:20 Dose: 324 mg Gabapentin (Gabapentin 100 Mg Capsule) 100 mg PO TID [facility] Stop: 06/29/24 08:59 Last Admin: 07/01/23 08:20 Dose: 100 mg Guaifenesin/Dextromethorphan (Guaif/Dextromethorphan Syrup 10 Ml Udc) 10 ml PO Q8H PRN PRN Reason: Cough Stop: 06/28/24 21:34 Heparin Sodium (Porcine) (Heparin 5,000 Unit/Ml Vial) 5,000 unit SUBCUT Q12HR [facility] Stop: 06/29/24 08:59 Last Admin: 07/01/23 08:21 Dose: 5,000 unit Levothyroxine Sodium (Levothyroxine 100 Mcg Tablet) 100 mcg PO DAILY@0630 [facility] Stop: 06/29/24 06:29 Last Admin: 07/01/23 05:46 Dose: 100 mcg Linaclotide (Linaclotide 290 Mcg Capsule) 290 mcg PO Q48HR [facility] Stop: 06/29/24 08:59 Last Admin: 06/30/23 09:33 Dose: 290 mcg Liothyronine Sodium (Liothyronine 25 Mcg Tablet) 25 mcg PO DAILY@0630 [facility] Stop: 06/29/24 10:59 Last Admin: 07/01/23 05:46 Dose: 25 mcg Loratadine (Loratadine 10 Mg Tablet) 10 mg PO DAILY PRN PRN Reason: Allergy Symptoms Stop: 06/29/24 06:54 Melatonin (Melatonin 5 Mg Tablet) 5 mg PO QHS PRN PRN Reason: Insomnia Stop: 06/28/24 21:34 Metoprolol Tartrate (Metoprolol Tartrate 25 Mg Tablet) 25 mg PO BID [facility] Stop: 06/29/24 20:59 Last Admin: 07/01/23 [...] signed by MD Los Grissom> 07/01/23 1016 [facility] Work Phone: 1(340) 781-802601-05-2024 Progress note Author Jim Randhawa [facility] June 30, 2023 1:13pm Note Date/Time June 30, 2023 1: 13pm [facility] [address] [place] [address] Hospitalist Progress Note Signed Patient: Mabel Moser MR#: [id number] : 1960 Acct:[id number] Age/Sex: 63 / F Adm Date: 4 Loc: Room: [address] [place] [address] Type: ADM IN Attending Dr: Jim Randhawa [...] signed by Jim Randhawa DO> 06/30/23 1313 [facility] Work Phone: 1(460) 323-681701-05-2024 Consult note Author Los Grissom [facility] June 30, 2023 10:45am Note Date/Time June 30, 2023 10 :26am [facility] [address] [place] [address] Nephrology Consult Note Signed Patient: Mabel Moser MR#: [id number] : 1960 Acct:[id number] Age/Sex: 63 / F Adm Date: 4 Loc: Room: [address] [place] [address] Type: ADM IN Attending Dr: Jim Randhawa [...] additional complaints, except as documented [facility] Medical History CAD (coronary artery disease) Concepcion [...] Mg Tablet) 150 mg PO QHS [facility] Stop: 06/29/24 21:59 Aripiprazole (Aripiprazole 2 Mg Tablet) 2 mg PO DAILY [facility] Stop: 06/29/24 08:59 Last Admin: 06/30/23 09:30 Dose: 2 mg Bisacodyl (Bisacodyl 5 Mg Tablet.) 10 mg PO DAILY PRN PRN Reason: Constipation Stop: 06/28/24 21:34 Bumetanide (Bumetanide 1 Mg/4 Ml Vial) 1 mg IV-PUSH BID@0800,1600 [facility] Stop: 06/29/24 07:59 Last Admin: 06/30/23 09:31 Dose: 1 mg Calcium Acetate (Calcium Acetate 667 Mg Capsule) 667 mg PO BID.WITH.MEALS [facility] Stop: 06/29/24 07:59 Last Admin: 06/30/23 09:30 Dose: 667 mg Duloxetine HCl (Duloxetine 60 Mg Capsule.) 120 mg PO DAILY [facility] Stop: 06/29/24 08:59 Last Admin: 06/30/23 09:30 Dose: 120 mg Escitalopram Oxalate (Escitalopram 20 Mg Tablet) 20 mg PO DAILY [facility] Stop: 06/29/24 08:59 Last Admin: 06/30/23 09:31 Dose: 20 mg Fentanyl (Fentanyl Patch 100 Mcg/Hour Patch.Td72) 100 mcg TRANSDERML Q72H [facility]; Protocol Last Admin: 06/30/23 09:31 Dose: 100 mcg Ferrous Sulfate (Ferrous Sulfate 324 Mg Tablet.) 324 mg PO DAILY [facility] Stop: 06/29/24 08:59 Last Admin: 06/30/23 09:31 Dose: 324 mg Gabapentin (Gabapentin 100 Mg Capsule) 100 mg PO TID [facility] Stop: 06/29/24 08:59 Last Admin: 06/30/23 09:31 Dose: 100 mg Guaifenesin/Dextromethorphan (Guaif/Dextromethorphan Syrup 10 Ml Udc) 10 ml PO Q8H PRN PRN Reason: Cough Stop: 06/28/24 21:34 Heparin Sodium (Porcine) (Heparin 5,000 Unit/Ml Vial) 5,000 unit SUBCUT Q12HR [facility] Stop: 06/29/24 08:59 Last Admin: 06/30/23 09:32 Dose: 5,000 unit Levothyroxine Sodium (Levothyroxine 100 Mcg Tablet) 100 mcg PO DAILY@0630 [facility] Stop: 06/29/24 06:29 Last Admin: 06/30/23 05:55 Dose: 100 mcg Linaclotide (Linaclotide 290 Mcg Capsule) 290 mcg PO Q48HR [facility] Stop: 06/29/24 08:59 Last Admin: 06/30/23 09:33 Dose: 290 mcg Liothyronine Sodium (Liothyronine 25 Mcg Tablet) 25 mcg PO DAILY [facility] Stop: 06/29/24 08:59 Loratadine (Loratadine 10 [...] Mg Tablet) 100 mg PO HS [facility] Stop: 06/29/24 21:59 Sevelamer Carbonate (Sevelamer Carbonate 800 Mg Tablet) 800 mg PO TID [facility] Stop: 06/29/24 08:59 Tizanidine HCl (Tizanidine 4 [...] signed by MD Los Grissom> 06/30/23 1045 [facility] Work Phone: 1([phone]) 180-809401-04-2024 History and physical note Author Beatriz hO [facility] June 29, 2023 9:51pm Note Date/Time June 29, 2023 9: 47pm [facility] [address] [place] [address] Hospitalist H&P Signed Patient: Mabel Moser MR#: [id number] : 1960 Acct:[id number] Age/Sex: 63 / F Adm Date: 4 Loc: Room: [address] [place] [address] Type: ADM IN Attending Dr: Papito Garces [...] having dysuria, hematuria, or frequency. [facility] Medical History CAD (coronary artery disease) Concepcion [...] mg PO BID 08/31/18 [History Confirmed 10/28/22] kwwnpsyt-oocfcnv-kucv-iron fum 18 mg-folic 600 mcg-vit K 80 [...] TID PRN Edema 10/28/22 [History Confirmed 10/28/22] epowywoacv-iyyoqhawkbiyo-mhcumeqt 50 mg-325 mg-40 mg capsule 1 cap [...] signed by Beatriz Oh MD> 06/29/23 215 [facility] Work Phone: 1([phone]) 123-927010-10-2023 Evaluation note* Encounter Date Diagnosis Assessment Notes [...] Advised the patient to follow with [facility] neurology clinic Mar, Chronic kidney disea [...] (ICD-10 - E83.39) Continue [employer] with meals [employer] Other [id number] NoteRemains stable without worsening symptomsUnSelect Medical Specialty [facility], Inc08-30-2023 NoteCoronary artery disease is stable Continue GDMT continue risk factor modifications- heart healthy diet, regular exercise as tolerated and continue all medications.[facility] 02-22-2023 NoteNYHC II Continue GDMT- entresto- metoprolol and aldactone have been dc's r/t hypotension. Diuretic therapy- bumex 2 mg bid- Monitor daily weights, I&O, fluid restriction 1.5-2L/day, renal function and electrolytes- please maintain K+>4 and Mg > 2UnSelect Medical Special[facility], Inc 02-22-2023 NoteRCRI- 0???points Class I Risk 3.9???% 30-day risk of , [place], or cardiac arrest From a cardiology perspective pt may proceed with Total knee arthroplasty with Dr Dennis, she is a low to moderate risk for a low to mod risk orthopedic surgery. She does not take any Aspirin, or anticoagulation. Please monitor hemodynamics carefully and prevent any major fluid shifts.[facility]08-30-2023 NotePatient here for 2 mo follow up pulmonary hypertension and hypertension. She was admitted to [facility] twice this past month. She needs cleared for knee replacement surgery with Dr. Dennis. Denies chest pain, lightheadedness, and palpitations. Says SOB is improving. Review of Systems Constitutional: Positive for malaise/fatigue. Cardiovascular: Positive for dyspnea on exertion (improving). Musculoskeletal: Positive for arthritis, back pain and joint pain. All other systems reviewed and are negative.[facility] 02-22-2023 NoteUTP CARDIOLOGY PROGRESS NOTE HPI: Mabel Moser is a 62 y.o. female here for pre surgery risk stratification Patient here for 2 mo follow up pulmonary hypertension and hypertension. She was admitted to [facility] twice this past month. She needs [...] and or (more content not included)...[facility]08-24-2023 NoteSubjective: Patient ID: Mabel Moser is [...] History: Diagnosis Date [facility]est[facility] Coronary artery disease Heart valve [...] intact to light touch distally Imaging: Where: [place] Date: 01/13/2023 x-ray left knee(s) : Images [...] to proceed with surgery. Oneal Downey, M3 [facility] 02/16/23 As the teaching physician, I have personally performed or re-performed the history of present illness, physical exam and medical decision-making activities of the encounter and verified the medical student's documentation. I made pertinent changes as necessary to ensure accurate documentation. Additional Comments: [facility]04-04-2023 Evaluation note* Encounter Date Diagnosis Assessment [...] Advised the patient to follow with [facility] neurology clinic [facility] [employer] Other 03-28-2023 NoteThe [facility]Azwadqjx[facility]-27-6913 Evaluation note* Encounter Date Diagnosis Assessment Notes Treatment Notes Treatment Clinical Notes Jul, Contusion of right wrist, initial encounter (ICD-10 - S60.211A) Patient placed in cock up wrist splint. Activities 2-5 lbs ADLs [employer] Other 12-13-2022 NoteThe [facility] [id number] NoteThe [facility] DaytonLdhjuewr01-85-2463 NoteThe [facility] DaytonNwabvyyt43-48-7675 Evaluation note * Encounter Date Diagnosis Assessment [...] Advised the patient to follow-up with [facility] neurology clinic I will try to reach to Dr. Santana's office about fludrocortisone I would continue same blood pressure medications. Advised the patient to follow a low-salt diet and to monitor her blood pressure at home Mar, Migraine aura, persistent, intractable (ICD-10 - G43.519) Advised the patient to follow with [facility] neurology clinic [employer] Other 08-04-2022 NoteThe [facility] DaytonBjdndphj72-77-6406 NoteThe [facility] DaytonNvqrhcgx79-50-4570 Evaluation note* Encounter Date Diagnosis Assessment Notes [...] off all diuretics metolazone, spironolactone and bumetanide. [employer] Other Discharge summary Author Jim Randhawa [facility] July 03, 2023 3:03pm Note Date/Time July 03, 2023 2: 55pm [facility] ENTER [address] [place], [place] [id number] Discharge Summary Signed Patient: Mabel Moser MR#: [id number] : 1960 Acct:[id number] Age/Sex: 63 / F Adm Date: 4 Loc: Room: [address] [place] [address]: Jim Randhawa DO Copies to: MD Jim Mensah, ~ Providers Date of Admission: 06/29/23 Date of [...] needed.) Documented By: Jim Randhawa DO 07/03/23 1452 Signed By: <Electronically signed by Jim Randhawa DO> 07/03/23 2837 [facility] Work Phone: Evaluation noteNo assessment information available [facility] Work Phone: Evaluation noteNo InformationNort [employer] Other Evaluation note* Diagnosis Onset Date Resolution Status Acute heart failure acute RENETTA (acute kidney injury) ac isela Anemia chronic CKD (chronic kidney disease) stage 3, GFR 30-59 ml/min chronic Hypertension chronic [facility] Work Phone: History general [...] History COVID 05/2020 Hospitalization History COVID 04/2021 [employer] Other history general Narrative - Reported* Type [...] History COVID 05/2020 Hospitalization History COVID 04/2021 [employer] Other history general Narrative - Reported* Type [...] 04/2021 Hospitalization History ELEVATED POTASSIUM LEVEL 09/19/2022 [employer] Other Hospital Discharge instructions Additional Instructions Home health to manage: - PT/OT to eval and treat - Monitor VS routine - Dx. HTN - CHF assessments/education - Urinary assessments - Dx. CKD on RENETTA - Fall precautions - [facility] Work Phone: Summary Purpose Family History No [...] content) DATE CREATED AUTHOR 01/14/2019 Ailyn Zepeda [facility] DATE CREATED AUTHOR AUTHOR'S ORGANIZ ATION 07/24/2021 [facility] DATE CREATED AUTHOR AUTHOR'S ORGANIZ ATION 01/17/2022 [facility] DATE CREATED AUTHOR AUTHOR'S ORGANIZ ATION 12/05/2022 [facility] DATE CREATED AUTHOR AUTHOR'S ORGANIZ ATION 08/04/2023 [facility] DATE CREATED AUTHOR AUTHOR'S ORGANIZ ATION 10/19/2023 [facility] DATE CREATED AUTHOR AUTHOR'S ORGANIZ ATION 01/19/2024 [facility] DATE CREATED AUTHOR AUTHOR'S ORGANIZ ATION 02/12/2024 [facility] DATE CREATED AUTHOR AUTHOR'S ORGANIZ ATION 02/12/2024 [facility] REASON FOR VISIT (unrecogniz ed section [...] Active Team Status: Inactive Member Role Status Adriana Santana MD Primary Care Provider Active Favian [...] BE BASED ON THE PRIMARY CLINICAL RECORDS. [employer] provides no warranty or guarantee of the accuracy or completeness of information in this document.
--- NOTE | 2024-02-28 03:06 | XR_ITS ---
The [address] [address] Patient Name: JOSE CLEMENTS MRN: [id number] date: 1960 Sex: F Assigned Patient Location: ER Current Patient Location: ER Accession/Order Number: [id number] Exam Date: 02/28/2024 03:30 Report Date: 02/28/2024 04:09 At the request of: RHIANNON MARKER Procedure: XR chest 1V EXAMINATION: XR chest 1V HISTORY: Hx CHF ; dyspnea, left leg pain COMPARISON: XR chest 01/04/2024 FINDINGS: LUNGS: Underexpanded lungs with mild stranding within lung bases. VASCULATURE: No increased pulmonary vasculature. PLEURA: No pneumothorax, effusion, or pleural thickening. CARDIAC: No cardiomegaly or cardiac silhouette abnormality. MEDIASTINUM: No visible mass or adenopathy. BONES: No fracture or visible bone lesion. OTHER: Right-sided Port-A-Cath with tip in superior vena cava. XR/XR chest 1V IMPRESSION: 1. Low lung volume examination with mild bibasilar infiltrates versus atelectasis. Electronically authenticated by: BUNNY ZEPEDA Date: 02/28/2024 04:09
--- NOTE | 2024-02-28 03:07 | ECG_ITS ---
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
--- NOTE | 2024-02-28 03:08 | ED.EXTPRO1 ---
HPI - Extremity Problem General Chief complaint: Extremity Problem, Nontraumatic Stated complaint: PAIN IN LT LOWER LEG Time Seen by Provider: 02/28/24 02:40 Source: patient Mode of arrival: walk-in Limitations: no limitations History of Present Illness HPI Narrative: This 64-year-old female with a history of lymphedema, chronic renal insufficiency and C2 fracture as well as a DVT who is on Eliquis presents for evaluation of leg pain, left greater than right. Pain has been ongoing for a while and the patient states she is having trouble ambulating now because of the swelling in her legs and the fact that they are hard and she cannot move them easily. She did have a fusion of her C2 fracture in January. She has no new neurologic symptoms. She is still wearing a cervical collar. She states that she is not urinating much despite the fact that she is on an increased dose of Bumex. She states that despite having been on Eliquis she developed a DVT in the recent past. She denies any specific chest pain or shortness of breath. She denies any dizziness diaphoresis or syncope. She has been using her lymphedema pump for several hours a day without clinical improvement in her leg swelling. Related Data Home Medications ?Medication ?Instructions ?Recorded ?Confirmed alprazolam 0.5 mg tablet 0.5 mg PO BID PRN anxiety 12/08/22 02/28/24 amitriptyline 150 mg tablet 300 mg PO BEDTIME 12/08/22 02/28/24 calcium acetate(phosphat bind) 667 667 mg PO BIDWM 12/08/22 02/28/24 mg capsule levothyroxine 100 mcg tablet 100 mcg PO DAILY 12/08/22 02/28/24 linaclotide 290 mcg capsule 290 mcg PO DAILY 12/08/22 02/28/24 (Linzess) oxycodone-acetaminophen 5 mg-325 2 tab PO Q6H PRN pain 12/08/22 02/28/24 mg tablet primidone 50 mg tablet 150 mg PO BEDTIME 12/08/22 02/28/24 tizanidine 4 mg tablet (Zanaflex) 4 mg PO Q6H PRN muscle spasticity 12/08/22 02/28/24 aripiprazole 2 mg tablet (Abilify) 2 mg PO DAILY 01/23/23 02/28/24 bumetanide 1 mg tablet 6 mg PO DAILY SWELLING 01/23/23 02/28/24 butorphanol 10 mg/mL nasal spray 1 spray intranasal .QD PRN pain 02/03/23 02/28/24 azelastine 0.05 % eye drops 1 drp ophthalmic (eye) DAILY 09/29/23 02/28/24 desvenlafaxine succinate 50 mg 50 mg PO DAILY 09/29/23 02/28/24 tablet,extended release 24 hr diclofenac sodium 1 % topical gel 2 g topical .QD PRN 09/29/23 02/28/24 PAIN/INFLAMMATION doxepin 10 mg capsule 10 mg PO BID 09/29/23 02/28/24 escitalopram oxalate 20 mg tablet 20 mg PO DAILY 09/29/23 02/28/24 fentanyl 100 mcg/hr transdermal 1 patch transdermal Q72H 10/12/23 02/28/24 patch pramipexole 1 mg tablet 1 mg PO .qd 10/23/23 02/28/24 sacubitril 49 mg-valsartan 51 mg 1 tab PO BID 01/04/24 02/28/24 tablet (Entresto) spironolactone 50 mg tablet 100 mg PO Q12H 01/04/24 02/28/24 Previous Rx's ?Medication ?Instructions ?Recorded apixaban 5 mg tablet (Eliquis) 5 mg PO Q12H #60 tabs 01/08/24 doxycycline monohydrate 100 mg 100 mg PO BID 10 days #20 caps 01/08/24 capsule Allergies Allergy/AdvReac Type Severity Reaction Status Date / Time povidone-iodine Allergy Intermediate Rash Verified 02/28/24 02:42 [From Betadine] amoxicillin [From Augmentin] Allergy Mild Vomiting Verified 02/28/24 02:42 clavulanic acid Allergy Mild Vomiting Verified 02/28/24 02:42 [From Augmentin] Sulfa (Sulfonamide Allergy Mild Vomiting Verified 02/28/24 02:42 Antibiotics) ciprofloxacin [From Cipro] Allergy Unknown Vomiting Verified 02/28/24 02:42 Review of Systems ROS Status of ROS 10 or more systems reviewed and unremarkable except as noted in history and below [facility] Medical History Chronic kidney disease ?N18.9 - Chronic kidney disease, unspecified (ICD-10) Acute kidney injury ?N17.9 - Acute kidney failure, unspecified (ICD-10) Edema of lower leg due to peripheral venous insufficiency ?I87.2 - Venous insufficiency (chronic) (peripheral) (ICD-10) ?R60.0 - Localized edema (ICD-10) Depression ?F32.A - Depression, unspecified (ICD-10) Gastroenteritis ?K52.9 - Noninfective gastroenteritis and colitis, unspecified (ICD-10) Migraine without aura and without status migrainosus, not intractable ?G43.009 - Migraine without aura, not intractable, without status migrainosus (ICD-10) Chronic heart failure with preserved ejection fraction (HFpEF) ?I50.32 - Chronic diastolic (congestive) heart failure (ICD-10) Chest pain ?R07.9 - Chest pain, unspecified (ICD-10) Dyspnea ?R06.00 - Dyspnea, unspecified (ICD-10) Fluid overload ?E87.70 - Fluid overload, unspecified (ICD-10) Osteoarthritis ?M19.90 - Unspecified osteoarthritis, unspecified site (ICD-10) Anemia ?D64.9 - Anemia, unspecified (ICD-10) Anxiety ?F41.9 - Anxiety disorder, unspecified (ICD-10) Stroke ?I63.9 - Cerebral infarction, unspecified (ICD-10) Acid reflux ?K21.9 - Gastro-esophageal reflux disease without esophagitis (ICD-10) Hypothyroid ?E03.9 - Hypothyroidism, unspecified (ICD-10) Kidney failure ?N19 - Unspecified kidney failure (ICD-10) COPD (chronic obstructive pulmonary disease) ?J44.9 - Chronic obstructive pulmonary disease, unspecified (ICD-10) Asthma ?J45.909 - Unspecified asthma, uncomplicated (ICD-10) CHF (congestive heart failure) ?I50.9 - Heart failure, unspecified (ICD-10) Irregular heart beat ?I49.9 - Cardiac arrhythmia, unspecified (ICD-10) HTN (hypertension) ?I10 - Essential (primary) hypertension (ICD-10) Heart attack ?I21.9 - Acute myocardial infarction, unspecified (ICD-10) Lumbar spondylosis ?M47.816 - Spondylosis without myelopathy or radiculopathy, lumbar region (ICD-10) Surgical History H/O hysterectomy with oophorectomy H/O gastric bypass ?Z98.84 - Bariatric surgery status (ICD-10) History of hernia repair ?Z98.890 - Other specified postprocedural states (ICD-10) ?Z87.19 - Personal history of other diseases of the digestive system (ICD-10) History of rotator cuff surgery ?Z98.890 - Other specified postprocedural states (ICD-10) History of right knee joint replacement ?Z96.651 - Presence of right artificial knee joint (ICD-10) History of appendectomy ?Z90.49 - Acquired absence of other specified parts of digestive tract (ICD-10) Hx of cholecystectomy ?Z90.49 - Acquired absence of other specified parts of digestive tract (ICD-10) Family History Father Family history of CHF (congestive heart failure) Family history of diabetes mellitus Family history of hypertension Family history of myocardial infarction Family history of stroke Mother Family history of CHF (congestive heart failure) Family history of COPD (chronic obstructive pulmonary disease) Family history of diabetes mellitus Family history of hypertension Family history of myocardial infarction Family history of stroke Social History Within the past year, how often did you have a drink containing alcohol: never Within the past year, how often did you have six or more drinks on one occasion: never Score interpretation: A score less than 3 is consistent with normal alcohol consumption. 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 Highest level of school completed/degree received: Associate degree: occupational, technical, vocational program Are you now , , , , never or living with a partner: In a typical week, how many times do you talk on the telephone with family, friends, or neighbors: 3 or more times per week How often do you get together with friends or relatives: twice per week How often do you attend druze or pentecostal services: 4 or more times per year Do you belong to any clubs or organizations such as druze groups unions, fraternal or athletic groups, or school groups: no Total score: 3 Score interpretation: A score of greater than or equal to 2 indicates the lowest level of social isolation. Little interest or pleasure in doing things: not at all Feeling down, depressed, or hopeless: several days Feel stressed/tense/nervous/anxious/difficulty sleeping: to some extent Life stressors: recent of family or friend Do you think of yourself as: straight/heterosexual Gender Identity: female Exam Narrative Exam Narrative: Vital signs and Nursing Notes reviewed: Patient is afebrile with a normal pulse, blood pressure is mildly elevated at 158/75, she is borderline hypoxic with pulse ox of 94% on room air General: Awake, alert, oriented, nontoxic but uncomfortable appearing overweight female, she is speaking in complete sentences without respiratory distress HEENT: Normocephalic atraumatic, mucous membranes are moist and pink, eyes are clear, normal conjunctiva, vision is grossly intact, posterior pharynx is normal in appearance. Neck: Hard cervical collar in place-not removed Chest: Lungs are diffusely diminished without rhonchi or rales CVS: Regular rate and rhythm S1-S2, no murmurs rubs or gallops, pulses are brisk and equal bilaterally ABD: Soft, nondistended, nontender, no rebound guarding or rigidity, bowel sounds are normal, no pulsatile masses appreciated Extremities: Bilateral lower extremity pitting edema from the feet to the upper thighs. The edema does not extend onto the abdominal wall, there is mild erythema of both lower legs that appreciable cellulitis. Feet are warm and sensate, pulses are brisk and equal bilaterally, there are no palpable cords, erythema or induration of the posterior legs however exam is limited by the patient's habitus Skin: Normal in appearance without rash,pallor, petechiae or purpura Neuro: No focal deficits Constitutional Vital Signs, click to edit/add: Last Vital Signs Temp 98 F 02/28/24 02:42 Pulse 81 02/28/24 03:20 Resp 14 02/28/24 03:20 BP 158/75 H 02/28/24 02:42 Pulse Ox 94 L 02/28/24 02:49 O2 Del Method Room Air 02/28/24 02:49 Course Vital Signs Vital signs: Vital Signs Temperature 98 F 02/28/24 02:42 Pulse Rate 90 02/28/24 02:42 Respiratory Rate 18 02/28/24 02:42 Blood Pressure 158/75 H 02/28/24 02:42 Pulse Oximetry 94 L 02/28/24 02:42 Oxygen Delivery Method Room Air 02/28/24 02:42 Temperature 98 F 02/28/24 02:42 Pulse Rate 81 02/28/24 03:20 Respiratory Rate 14 02/28/24 03:20 Blood Pressure 158/75 H 02/28/24 02:42 Pulse Oximetry 94 L 02/28/24 02:49 Oxygen Delivery Method Room Air 02/28/24 02:49 MDM - Extremity (Nontraumatic) MDM Narrative Medical decision making narrative: This 64-year-old female with a history of chronic renal insufficiency, morbid obesity, cervical fracture, anemia and musculoskeletal disorders presents for evaluation of increased swelling of her lower extremities and concern for a DVT in the left leg which has been bothering her. She is on Eliquis twice a day. She maintains compliance with her medications. She states her family physician has recently increased her diuretics and despite that she is still retaining fluid. She states that her legs are too heavy for her to move and she is concerned that she has developed a DVT despite this. She denied any chest pain. Has had pitting and nonpitting edema from her feet to her thighs. I do not appreciate any palpable cords or other notable abnormality concerning for a DVT however her body habitus precludes further evaluation of her lower extremities. Her feet are warm and sensate and pulses are brisk and equal indicating she likely does not have an arterial occlusion. She complains of some exertional shortness of breath despite using her lymphedema device she is not diuresing.. EKG done upon arrival was a sinus rhythm at 80 bpm with slightly peaked T waves. An IV was placed. She does take Percocet and has a fentanyl patch on. Routine labs are ordered and are reviewed. She has a normal white count. Her hemoglobin is mildly low at 7.7. Her D-dimer is elevated at 1.09 however she does have chronic renal insufficiency with a BUN/creatinine today of 52/2.10 mild elevation in her potassium of 5.2. BNP is elevated at 1082. Ultrasound is not available at this time. I will discuss admission with the hospitalist for further evaluation, ultrasound when available and diuresis as per deemed appropriate. Lab Data Attestation: I reviewed the patient's lab results. Labs: Lab Results 09/04/24 Range/Units 03:20 WBC 7.0 (4.0-11.0) 10^3/uL RBC 2.60 L (4.20-5.40) 10^6/uL Hgb 7.7 L (12.0-16.0) g/dL Hct 25.1 L (36.0-48.0) % MCV 96.5 (81.0-99.0) fL MCH 29.6 (26.7-34.0) pg MCHC 30.7 (29.9-35.2) g/dL RDW 14.7 (11.0-15.0) % Plt Count 232 (150-450) 10^3/uL MPV 8.8 L (9.5-13.5) fL Neut % (Auto) 67.0 (43.0-75.0) % Lymph % (Auto) 17.8 L (20.5-60.0) % Gosper % (Auto) 10.6 (1.7-12.0) % Eos % (Auto) 3.6 (0.9-7.0) % Baso % (Auto) 0.6 (0.2-2.0) % Neut # (Auto) 4.7 (1.4-6.5) 10^3/uL Lymph # (Auto) 1.2 (1.2-3.8) 10^3/uL Gosper # (Auto) 0.7 (0.3-0.8) 10^3/uL Eos # (Auto) 0.3 (0.0-0.7) 10^3/uL Baso # (Auto) 0.0 (0.0-0.1) 10^3/uL Abs Immat Gran (auto) 0.03 (0.00-0.03) 10^3/uL Imm/Tot Granulo (auto) 0.4 (0.0-0.5) % PT 10.3 (9.0-11.6) sec INR 0.97 D-Dimer 1.09 H* (<=0.59) mg/L FEU Sodium 134 L (136-145) mmol/L Potassium 5.2 H (3.5-5.1) mmol/L Chloride 103 (98-107) mmol/L Carbon Dioxide 24.5 (21.0-32.0) mmol/L Anion Gap 11.7 BUN 52.0 H (7.0-18.0) mg/dL Creatinine 2.10 H (0.55-1.02) mg/dL Est GFR ( Amer) 29 L (>=60) Est GFR (Non-Af Amer) 24 L (>=60) BUN/Creatinine Ratio 24.8 Glucose 82 (74-106) mg/dL Calcium 8.0 L (8.5-10.1) mg/dL Total Bilirubin 0.2 (0.2-1.0) mg/dL AST 22 (15-37) U/L ALT 22 (14-59) U/L Alkaline Phosphatase 240 H (46-116) U/L NT-Pro-B Natriuret Pep 1082.0 H (<=900.0) pg/mL Total Protein 6.1 L (6.4-8.2) g/dL Albumin 2.9 L (3.4-5.0) g/dL Globulin 3.2 g/dL Albumin/Globulin Ratio 0.9 ECG Data Attestation ECG: I personally reviewed and interpreted this ECG as follows: (Sinus rhythm at 80 bpm, normal axis, voltage criteria anterior for LVH, mildly peaked T waves, no acute ST segment elevation or T wave inversion) Discharge Plan Discharge Chief Complaint: Extremity Problem, Nontraumatic Clinical Impression: Anemia of chronic disease, Fluid overload, Chronic kidney insufficiency, D-dimer, elevated Patient Disposition: Admitted as Observation Time of Disposition Decision: 04:33 Condition: Good Prescriptions / Home Meds: No Action aripiprazole [Abilify] 2 mg tablet 2 mg PO DAILY bumetanide 1 mg tablet 6 mg PO DAILY Hold Instructions: Resume on 02/16/23. until cleared by PCP butorphanol 10 mg/mL spray,non-aerosol 1 spray INTRANASAL .QD PRN (Reason: pain) desvenlafaxine succinate 50 mg tablet extended release 24 hr 50 mg PO DAILY diclofenac sodium 1 % gel 2 g TOPICAL .QD PRN (Reason: PAIN/INFLAMMATION) doxepin 10 mg capsule 10 mg PO BID escitalopram oxalate 20 mg tablet 20 mg PO DAILY azelastine 0.05 % drops 1 drp OPHTHALMIC (EYE) DAILY fentanyl 100 mcg/hr patch 72 hour 1 patch transdermal Q72H pramipexole 1 mg tablet 1 mg PO .qd alprazolam 0.5 mg tablet 0.5 mg PO BID PRN (Reason: anxiety) amitriptyline 150 mg tablet 300 mg PO BEDTIME calcium acetate(phosphat bind) 667 mg capsule 667 mg PO BIDWM levothyroxine 100 mcg tablet 100 mcg PO DAILY Linzess 290 mcg capsule 290 mcg PO DAILY Hold Instructions: PCP order primidone 50 mg tablet 150 mg PO BEDTIME tizanidine [Zanaflex] 4 mg tablet 4 mg PO Q6H PRN (Reason: muscle spasticity) oxycodone-acetaminophen 5-325 mg tablet 2 tab PO Q6H PRN (Reason: pain) Entresto 49-51 mg tablet 1 tab PO BID spironolactone 50 mg tablet 100 mg PO Q12H doxycycline monohydrate 100 mg capsule 100 mg PO BID 10 Days Qty: 20 0RF Eliquis 5 mg tablet 5 mg PO Q12H Qty: 60 11RF Rx Instructions: 2 po BID for 1 week then 1 po BID for life Print Language: Mongolian Referrals: Yuri Godinez MD [Primary Care Provider] - 1 week
[2024-02-28 03:27] LABS: Basophils Percent Auto 0.6 % (0.2-2.0); Eosinophils Absolute Auto 0.3 10^3/uL (0.0-0.7); Eosinophils Percent Auto 3.6 % (0.9-7.0); Hematocrit 25.1 % (36.0-48.0); Hemoglobin 7.7 g/dL (12.0-16.0); Immature Granulocytes Abs Auto 0.03 10^3/uL (0.00-0.03); Immature Granulocytes Pct Auto 0.4 % (0.0-0.5); Lymphocytes Absolute Auto 1.2 10^3/uL (1.2-3.8); Lymphocytes Percent Auto 17.8 % (20.5-60.0); Mean Corpuscular HGB Conc 30.7 g/dL (29.9-35.2); Mean Corpuscular Hemoglobin 29.6 pg (26.7-34.0); Mean Corpuscular Volume 96.5 fL (81.0-99.0); Mean Platelet Volume 8.8 fL (9.5-13.5); Monocytes Absolute Auto 0.7 10^3/uL (0.3-0.8); Monocytes Percent Auto 10.6 % (1.7-12.0); Neutrophils Absolute Auto 4.7 10^3/uL (1.4-6.5); Platelet Count 232 10^3/uL (150-450); Red Cell Distribution Width 14.7 % (11.0-15.0)
[2024-02-28 03:44] LABS: Alanine Aminotransferase 22 U/L (14-59); Albumin Globulin Ratio 0.9; Albumin Level 2.9 g/dL (3.4-5.0); Alkaline Phosphatase 240 U/L (46-116); Anion Gap 11.7; Aspartate Amino Transferase 22 U/L (15-37); BUN Creatinine Ratio 24.8; Bilirubin Total 0.2 mg/dL (0.2-1.0); Carbon Dioxide 24.5 mmol/L (21.0-32.0); Chloride 103 mmol/L (98-107); Estimated GFR (African America 29 (>=60); Estimated GFR (Non-African Ame 24 (>=60); Globulin 3.2 g/dL; Glucose 82 mg/dL (74-106); Potassium 5.2 mmol/L (3.5-5.1); Sodium 134 mmol/L (136-145); Total Protein 6.1 g/dL (6.4-8.2)
[2024-02-28 03:52] LABS: D Dimer 1.09 mg/L FEU (<=0.59); INR 0.97; Prothrombin Time 10.3 sec (9.0-11.6)
[2024-02-28] MEDS: OXYCODONE HCL/ACETAMINOPHEN 5MG/325MG 1 TAB PO (05:08)
--- OUTSIDE RECORDS SUMMARY | 2024-02-28 05:19 | XMS_ITS | CCD ---
Author Organization [facility] CliniSywv Care Team Providers Care Public Interviewer Name Role Phone NIRMAL LEWIS Admitting Unavailable NIRMAL LEWIS Attending Unavailable ANGLE SANTANA Primary Care Unavailable NIRMAL LEWIS Admitting Unavailable NIRMAL LEWSI Attending Unavailable ANGLE SANTANA Primary Care Unavailable [...] Unavailable HOY ., DR BARBOUR Attending Unavailable ALVA, DR CARLOS Castillo Consulting Unavailable LAKSHMIPATHY ., [...] Sanchez Attending Unavailable HARP ., DR ANIKA Sanhcez Admitting Unavailable DEJESUS . NNAMDI Consulting Unavailable [...] Unavailable MD Angle Santana Primary Care Provider [phone] MD Beatriz Oh Admit Provider DO Jim [...] Amoxicillin Drug Allergy 10-29-19 23 Unknown, Diarrhea [facility] (5 sources) Amoxicillin / Clavulanate Drug Allergy Unknown [facility] [employer] Other (13 sources) Povidone-Iodine; Translations: [POVIDONE-IODINE] Drug Allergy 08-15-19 17 Unknown, [facility] (9 sources) Sulfamethoxazole / Trimethoprim Drug Allergy Unknown [employer] Other (1 source) sulfaSALAzine Drug Allergy Unknown [facility] [employer] Other (8 sources) Amoxicillin / Clavulanate; Translations: [Augmentin] Drug Allergy 11-26-19 13 Unknown [facility] (1 source) Bumetanide Drug Allergy 03-22-20 16 [facility] (1 source) Cephalexin Drug Allergy 01-15-20 14 [facility] (2 sources) gabapentin; Translations: [GABAPENTIN] Drug Allergy 08-19-19 22 [facility] (4 sources) Povidone-Iodine; Translations: [Betadine] Drug Allergy 11-26-19 13 [facility] (1 source) pregabalin; Translations: [LYRICA] Drug Allergy 08-19-19 22 [facility] (7 sources) Sulfonamides (Antibiotic); Translations: [SULFA (SULFONAMIDE ANTIBIOTICS)] Drug allergy (disorder) 11-26-19 13 Rash [facility] (1 source) Sulfonamide Drug allergy Unknown [employer] Other (7 sources) Substance with sulfonamide structure and antibacterial mechanism of action (substance) Drug allergy Unknown [employer] Other (3 sources) Clavulanate; Translations: [clavulanic acid] Drug Allergy 10-29-[address] [facility] (1 source) Ciprofloxacin Drug Allergy 05-26-20 [facility] Repository (1 source) Amoxicillin Drug Allergy 04-04-[address] [facility] Repository (1 source) Povidone-Iodine Drug Allergy 04-04-[address] [facility] Repository (1 source) Sulfamethoxazole Drug Allergy 04-04-[address] [facility] Repository (1 source) Sulfonamides (Antibiotic) Drug allergy (disorder) 04-04-20 [facility] Rep[facility] (1 source) Trimethoprim Drug Allergy 04-04-20 [facility] Repository (2 sources) AMOXICILLIN-POT CLAVULANATE; Translations: [AMOXICILLIN-POT CLAVULANATE] Propensity to adverse reactions to drug (disorder) 06-13-20 14 [facility] Repository (1 source) carvedilol; Translations: [CARVEDILOL] Drug Allergy 12-21-19 24 [facility] Repository (1 source) Cephalexin; Translations: [CEPHALEXIN] Drug Allergy 06-13-20 14 [facility] Rep[facility] (1 source) Ciprofloxacin; Translations: [CIPROFLOXACIN] Drug Allergy 10-11-19 [facility] Rep[facility] (1 source) Iodine; Translations: [IODINE] Drug Allergy 11-28-19 [facility] (1 source) pregabalin; Translations: [PREGABALIN] Drug Allergy 10-11-19 [facility] Rep[facility] (1 source) Sulfamethoxazole / Trimethoprim; Translations: [SULFAMETHOXAZOLE-T RIMETHOPRIM] Drug Allergy 11-28-19 [facility] Rep[facility] (1 source) Sulfonamides (Antibiotic); Translations: [sulfa drugs] Propensity to adverse reactions (disorder) [facility] Repository Medications Current Medications Medication Drug [...] 28, 2022 8:37pm [facility] daily in the morning Levothyroxine Sodium 100 MCG 1 tablet in the morning on an empty stomach Orally Once a day Active linaclotide 0.29 mg oral capsule (11 sources) Guanylate Cyclase-C Agonist Start: 10-28-2022 Linaclotide (Linzess ) 290 mcg capsule Active 290 MCG PO Every 48 hours October 27, 2022 11:00pm Start: 10-28-2022 [facility] daily Linaclotide (Linzess) 290 mcg [...] 31, 2018 1:00am take [facility] twelve hours Metoprolol Tartrate 50 MG [...] 10:41am Start: 08-31-2018 [facility] daily Pantoprazole (Protonix) 20 mg Tablet,Delayed [...] 04, 2018 6:59am take 2 tablets [address] [facility] every twenty-four hours Primidone 50 MG 2 [...] 31, 2018 1:00am take 1 tablet by [facility] every six hours tiZANidine HCl 4 MG [...] Start: 08-31-2018 take 2 tablets by [facility] every four to six hours Oxycodone-Acetaminophen (Percocet) 5-325 mg Tablet Active 2 TAB PO EVERY 4-6 HOURS August 31, 2018 1:00am take 2 tablets by [facility] every four hours as needed oxyCODONE-Acetaminophen 5-325 MG 2 table t as needed Orally every 4 hrs PRN Active [id number] 200 actuat albuterol 0.09 mg/actuat metered dose [...] meals Orally Four times a day Active Vf-Bqguqsu-Sda-Iron Fm-Fa-Vitk (Multi For Her) 18 mg iron-600 mcg-80 mcg Tablet (2 sources) Start: 08-31-2018 End: 06-30-2023 take 1 tablet by mouth once daily Ux-Kcggnyp-Yda-Iron Fm-Fa-Vitk (Multi For Her) 18 mg iron-600 mcg-80 mcg Tablet Discontinued 1 TAB PO Daily August 31, 2018 12:00am June 30, 2023 12:26am Start: 08-31-2018 take 1 tablet by joseph th once daily Zh-Efovoke-Jzd-Iron Fm-Fa-Vitk (Multi For Her) 18 mg iron-600 [...] disease (3 sources) Atherosclerotic heart disease of [place] coronary artery without angina pectoris; Translations: [ASHD [place] W/O ANGINA PECTORIS] Onset: 3 [...] medical drugs (1 source) Adverse effect of osuitvsrrcf-bkewsyupau-n nzyme inhibitors, initial encounter; Translations: [ADVERSE EFFECT [...] aftercare (2 sources) Polypharmacy ; Translations: [Other shelter (current) drug therapy] 09-04-2018 Episodic Other aftercare (1 source) Other [employer] (current) drug therapy; Translations: [OTH LONG-TERM 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 THERAPY] Onset: 3 Episodic Other [...] 01-30-2024 Magnesium [Mass/Vol] 2.0 mg/dL Normal 1.6-2.4 [facility] Comment on above: Performed By: #### C MPAbby, CDP #### [facility] [address] [place] [phone] Manager Helpdesk: Michael Chen MD CBC with Diffon 01-29-2024 Abs. Basophil 0.00 k/uL Normal 0.0-0.2 [facility] Comment on above: Performed By: #### C MPX, CDP #### [address] [address] Manager Helpdesk: Michael Chen MD Abs.Imm.Granulocyte 0.09 k/uL Normal 0.00-0.30 [facility] Comment on above: Performed By: #### C MPX, CDP #### [address] [address] Manager Helpdesk: Michael Chen MD Abs.Neutrophil (Seg) 6.87 k/uL Normal 1.8-7.7 [facility] Comment on above: Performed By: #### C MPX, CDP #### [address] [address] Manager Helpdesk: Michael Chen MD Basophils/100 WBC (Bld) 0 % Normal 0-2 [facility] Comment on above: Performed By: #### C MPX, CDP #### [facility] [employer] [address] [place] [phone] Manager Helpdesk: Michael Chen MD Eosinophils (Bld) [#/Vol] 0.26 10*3/uL Normal 0.0-0.4 [facility] Comment on above: Performed By: #### C MPX, CDP #### [facility] [address] [place] [phone] Manager Helpdesk: Michael Chen MD Eosinophils/100 WBC (Bld) 3 % Normal 1-4 [facility] Comment on above: Performed By: #### C MPX, CDP #### [address] [address] Manager Helpdesk: Michael Chen MD Immature granulocytes/100 WBC (Bld) 1 % High 0 [facility] Comment on above: Performed By: #### C MPX, CDP #### [address] [address] Manager Helpdesk: Michael Chen MD Lymphocytes (Bld) [#/Vol] 0.95 10*3/uL Low 1.0-4.8 [facility] Comment on above: Performed By: #### C MPX, CDP #### [address] [address] Manager Helpdesk: Michael Chen MD Lymphocytes/100 WBC (Bld) 11 % Low 24-44 [facility] Comment on above: Performed By: #### C MPX, CDP #### [address] [address] Manager Helpdesk: Michael Chen MD Monocytes (Bld) [#/Vol] 0.43 10*3/uL Normal 0.1-0.8 [facility] Comment on above: Performed By: #### C MPX, CDP #### [address] [address] Manager Helpdesk: Michael Chen MD Monocytes/100 WBC (Bld) 5 % Normal 1-7 [facility] Comment on above: Performed By: #### C MPX, CDP #### [address] [address] Manager Helpdesk: Michael Chen MD Morphology Pedro (Bld) [Interp] Normal Normal [facility] Comment on above: Performed By: #### C MPX, CDP #### [address] [address] Manager Helpdesk: Michael Chen MD Neutrophil (Seg) 80 % High 36-66 [facility] Comment on above: Performed By: #### C MPX, CDP #### [address] [address] Manager Helpdesk: Micahel Chen MD Platelet, Fluoresc. 288 k/uL Normal 138-453 [facility] Comment on above: Performed By: #### C MPX, CDP #### [address] [address] Manager Helpdesk: Michael Chen MD PLT, Immature Fract. 1.5 % Normal 1.1-10.3 [facility] Comment on above: Performed By: #### C MPX, CDP #### [address] [address] Manager Helpdesk: Michael Chen MD Erythrocyte distribution width (RBC) [Ratio] 13.6 % Normal 11.8-14.4 [facility] Comment on above: Performed By: #### C MPX, CDP #### [address] [address] Manager Helpdesk: Michael Chen MD Hematocrit (Bld) [Volume fraction] 25.9 % Low 36.3-47.1 [facility] Comment on above: Performed By: #### C MPX, CDP #### [facility] [employer] [address] [place] [phone] Manager Helpdesk: Michael Chen MD Hemoglobin (Bld) [Mass/Vol] 7.8 g/dL Low 11.9-15.1 [facility] Comment on above: Performed By: #### C MPX, CDP #### [address] [address] Manager Helpdesk: Michael Chen MD MCH (RBC) [Entitic mass] 29.8 pg Normal 25.2-33.5 [facility] Comment on above: Performed By: #### C MPX, CDP #### [facility] [employer] [address] [place] [phone] Manager Helpdesk: Michael Chen MD MCHC (RBC) [Mass/Vol] 30.1 g/dL Normal 28.4-34.8 [facility] Comment on above: Performed By: #### C MPX, CDP #### [address] [address] Manager Helpdesk: Michael Chen MD MCV (RBC) [Entitic vol] 98.9 fL Normal 82.6-102.9 [facility] Comment on above: Performed By: #### C MPX, CDP #### [address] [address] Manager Helpdesk: Michael Chen MD NRBC Automated 0.0 per 100 WBC Normal 0.0 [facility] Comment on above: Performed By: #### C MPX, CDP #### [address] [address] Manager Helpdesk: Michael Chen MD Platelet Count See Reflexed IPF Result Normal 138-453 [facility] Comment on above: Performed By: #### C MPX, CDP #### [address] [address] Manager Helpdesk: Michael Chen MD RBC (Bld) [#/Vol] 2.62 10*6/uL Low 3.95-5.11 [facility] Comment on above: Performed By: #### C MPX, CDP #### [address] [address] Manager Helpdesk: Michael Chen MD WBC (Bld) [#/Vol] 8.6 10*3/uL Normal 3.5-11.3 [facility] Comment on above: Performed By: #### C MPX, CDP #### [address] [address] Manager Helpdesk: Michael Chen MD CTA HEAD NECK W [...] Flavio Pierson MD 01/29/24 Final result Normal [facility] Comp Metabolic Pr/rfx MGon 0 01-29-2024 Albumin [Mass/Vol] 3.0 g/dL Low 3.5-5.2 [facility] Comment on above: Performed By: #### C MPX, CDP #### [address] [address] Manager Helpdesk: Michael Chen MD Albumin/Glob Ratio 1.0 Normal 1.0-2.5 [facility] Comment on above: Performed By: #### C MPX, CDP #### [facility] [address] [place] [phone] Manager Helpdesk: Michael Chen MD Alkaline Phos 205 U/L High 35-104 [facility] Comment on above: Performed By: #### C MPX, CDP #### [facility] [address] [place] [phone] Manager Helpdesk: Michael Chen MD ALT [Catalytic activity/Vol] U/L Low 10-35 [facility] Comment on above: Performed By: #### C MPX, CDP #### [facility] [employer] [address] [place] [phone] Manager Helpdesk: Michael Chen MD Anion gap [Moles/Vol] 11 mmol/L Normal 9-16 [facility] Comment on above: Performed By: #### C MPX, CDP #### [facility] [address] [place] [phone] Manager Helpdesk: Michael Chen MD AST [Catalytic activity/Vol] 27 U/L Normal 10-35 [facility] Comment on above: Performed By: #### C MPX, CDP #### [facility] [address] [place] [phone] Manager Helpdesk: Michael Chen MD Bilirubin [Mass/Vol] 0.2 mg/dL Normal 0.00-1.20 [facility] Comment on above: Performed By: #### C MPX, CDP #### [facility] [address] [place] [phone] Manager Helpdesk: Michael Chen MD Calcium [Mass/Vol] 8.0 mg/dL Low 8.6-10.4 [facility] Comment on above: Performed By: #### C MPX, CDP #### [facility] [address] [place] [phone] Manager Helpdesk: Michael Chen MD Chloride [Moles/Vol] 101 mmol/L Normal 98-107 [facility] Comment on above: Performed By: #### C MPX, CDP #### [facility] [address] [place] [phone] Manager Helpdesk: Michael Chen MD CO2 [Moles/Vol] 19 mmol/L Low 20-31 [facility] Comment on above: Performed By: #### C MPX, CDP #### [facility] [employer] [address] [place] [phone] Manager Helpdesk: Michael Chen MD Creatinine [Mass/Vol] 1.6 mg/dL High 0.50-0.90 [facility] Comment on above: Performed By: #### C MPX, CDP #### [address] [address] Manager Helpdesk: Michael Chen MD GFR/1.73 sq M.predicted among non-blacks MDRD (S/P/Bld) [Vol rate/Area] 38 mL/min/{1.73_m2} Low >60 [facility] Comment on above: Result Comment: These [...] Performed By: #### C MPX, CDP #### [facility] [employer] [address] [place] [phone] Manager Helpdesk: Michael Chen MD Glucose [Mass/Vol] 90 mg/dL Normal 74-99 [facility] Comment on above: Performed By: #### C MPX, CDP #### [facility] [employer] [address] [place] [phone] Manager Helpdesk: Michael Chen MD Potassium [Moles/Vol] 4.4 mmol/L Normal 3.7-5.3 [facility] Comment on above: Performed By: #### C MPX, CDP #### [facility] [employer] [address] [place] [phone] Manager Helpdesk: Michael Cehn MD Protein [Mass/Vol] 5.4 g/dL Low 6.6-8.7 [facility] Comment on above: Performed By: #### C MPX, CDP #### [facility] [employer] [address] [place] [address] Manager Helpdesk: Michael Chen MD Sodium [Moles/Vol] 131 mmol/L Low 136-145 [facility] Comment on above: Performed By: #### C MPX, CDP #### [facility] [address] [place] [address] Manager Helpdesk: Michael Chen MD Urea nitrogen [Mass/Vol] 46 mg/dL High 8-23 [facility] Comment on above: Performed By: #### C MPX, CDP #### [facility] [employer] [address] [place] [phone] Manager Helpdesk: Michael Chen MD Magnesiumon 01-29-2024 Magnesium [Mass/Vol] 2.1 mg/dL Normal 1.6-2.4 [facility] Comment on above: Performed By: #### M G #### [facility] [employer] [address] [place] [phone] Manager Helpdesk: Michael Chen MD Basic Metab w/rfx MGon 01-27 Anion gap [Moles/Vol] 10 mmol/L Normal 9-16 [facility] Comment on above: Performed By: #### C MPX, CDP #### [facility] [employer] [address] [place] [phone] Manager Helpdesk: Michael Chen MD Calcium [Mass/Vol] 7.5 mg/dL Low 8.6-10.4 [facility] Comment on above: Performed By: #### C MPX, CDP #### [facility] [employer] [address] [place] [phone] Manager Helpdesk: Michael Chen MD Chloride [Moles/Vol] 101 mmol/L Normal 98-107 [facility] Comment on above: Performed By: #### C MPX, CDP #### [facility] [employer] [address] [place] [phone] Manager Helpdesk: Michael Chen MD CO2 [Moles/Vol] 22 mmol/L Normal 20-31 [facility] Comment on above: Performed By: #### C MPX, CDP #### [facility] [employer] [address] [place] [address] Manager Helpdesk: Michael Chen MD Creatinine [Mass/Vol] 1.8 mg/dL High 0.50-0.90 [facility] Comment on above: Performed By: #### C MPX, CDP #### [facility] [employer] [address] [place] [phone] Manager Helpdesk: Michael Chen MD GFR/1.73 sq M.predicted among non-blacks MDRD (S/P/Bld) [Vol rate/Area] 33 mL/min/{1.73_m2} Low >60 [facility] Comment on above: Result Comment: These [...] Performed By: #### C MPX, CDP #### [facility] [employer] [address] [place] [phone] Manager Helpdesk: Michael Chen MD Glucose [Mass/Vol] 92 mg/dL Normal 74-99 [facility] Comment on above: Performed By: #### C MPX, CDP #### [address] [address] Manager Helpdesk: Michael Chen MD Potassium [Moles/Vol] 4.6 mmol/L Normal 3.7-5.3 [facility] Comment on above: Performed By: #### C MPX, CDP #### [address] [address] Manager Helpdesk: Michael Chen MD Sodium [Moles/Vol] 133 mmol/L Low 136-145 [facility] Comment on above: Performed By: #### C MPX, CDP #### [address] [address] Manager Helpdesk: Michael Chen MD Urea nitrogen [Mass/Vol] 46 mg/dL High 8-23 [facility] Comment on above: Performed By: #### C MPX, CDP #### [address] [address] Manager Helpdesk: Michael Chen MD CBC with Diffon 01-28-2024 Abs. Basophil <0.03 Normal 0.00-0.20 [facility] Comment on above: Performed By: #### C MPX, CDP #### [facility] [address] Manager Helpdesk: Michael Chen MD Abs.Imm.Granulocyte 0.13 k/uL Normal 0.00-0.30 [facility] Comment on above: Performed By: #### C MPX, CDP #### [address] [address] Manager Helpdesk: Michael Chen MD Abs.Neutrophil (Seg) 4.37 k/uL Normal 1.50-8.10 [facility] Comment on above: Performed By: #### C MPX, CDP #### [address] [address] Manager Helpdesk: Michael Chen MD Basophils/100 WBC (Bld) 0 % Normal 0-2 [facility] Comment on above: Performed By: #### C MPX, CDP #### [address] [address] Manager Helpdesk: Michael Chen MD Eosinophils (Bld) [#/Vol] 0.25 10*3/uL Normal 0.00-0.44 [facility] Comment on above: Performed By: #### C MPX, CDP #### [address] [address] Manager Helpdesk: Michael Chen MD Eosinophils/100 WBC (Bld) 4 % Normal 1-4 [facility] Comment on above: Performed By: #### C MPX, CDP #### [address] [address] Manager Helpdesk: Michael Chen MD Immature granulocytes/100 WBC (Bld) 2 % High 0 [facility] Comment on above: Performed By: #### C MPX, CDP #### [address] [address] Manager Helpdesk: Michael Chen MD Lymphocytes (Bld) [#/Vol] 1.15 10*3/uL Normal 1.10-3.70 [facility] Comment on above: Performed By: #### C MPX, CDP #### [address] [address] Manager Helpdesk: Michael Chen MD Lymphocytes/100 WBC (Bld) 18 % Low 24-43 [facility] Comment on above: Performed By: #### C MPX, CDP #### [address] [address] Manager Helpdesk: Michael Chen MD Monocytes (Bld) [#/Vol] 0.59 10*3/uL Normal 0.10-1.20 [facility] Comment on above: Performed By: #### C MPX, CDP #### [address] [address] Manager Helpdesk: Michael Chen MD Monocytes/100 WBC (Bld) 9 % Normal 3-12 [facility] Comment on above: Performed By: #### C MPX, CDP #### [address] [address] Manager Helpdesk: Michael Chen MD Neutrophil (Seg) 67 % High 36-65 [facility] Comment on above: Performed By: #### C MPX, CDP #### [address] [address] Manager Helpdesk: Michael Chen MD Erythrocyte distribution width (RBC) [Ratio] 13.6 % Normal 11.8-14.4 [facility] Comment on above: Performed By: #### C MPX, CDP #### [facility] [employer] [address] [place] [phone] Manager Helpdesk: Michael Chen MD Hematocrit (Bld) [Volume fraction] 24.0 % Low 36.3-47.1 [facility] Comment on above: Performed By: #### C MPX, CDP #### [facility] [employer] [address] [place] [phone] Manager Helpdesk: Michael Chen MD Hemoglobin (Bld) [Mass/Vol] 7.1 g/dL Low 11.9-15.1 [facility] Comment on above: Performed By: #### C MPX, CDP #### [facility] [employer] [address] [place] [phone] Manager Helpdesk: Michael Chen MD MCH (RBC) [Entitic mass] 29.6 pg Normal 25.2-33.5 [facility] Comment on above: Performed By: #### C MPX, CDP #### [facility] [employer] [address] [place] [phone] Manager Helpdesk: Michael Chen MD MCHC (RBC) [Mass/Vol] 29.6 g/dL Normal 28.4-34.8 [facility] Comment on above: Performed By: #### C MPX, CDP #### [facility] [employer] [address] [place] [phone] Manager Helpdesk: Michael Chen MD MCV (RBC) [Entitic vol] 100.0 fL Normal 82.6-102.9 [facility] Comment on above: Performed By: #### C MPX, CDP #### [address] [address] Manager Helpdesk: Michael Chen MD NRBC Automated 0.0 per 100 WBC Normal 0.0 [facility] Comment on above: Performed By: #### C MPX, CDP #### [facility] [employer] [address] [place] [phone] Manager Helpdesk: Michael Chen MD Platelet mean volume (Bld) [Entitic vol] 9.2 fL Normal 8.1-13.5 [facility] Comment on above: Performed By: #### C MPX, CDP #### [address] [place] [address] Manager Helpdesk: Michael Chen MD Platelets (Bld) [#/Vol] 222 10*3/uL Normal 138-453 [facility] Comment on above: Performed By: #### C MPX, CDP #### [facility] [place] [address] Manager Helpdesk: Michael Chen MD RBC (Bld) [#/Vol] 2.40 10*6/uL Low 3.95-5.11 [facility] Comment on above: Performed By: #### C MPX, CDP #### [facility] [employer] [address] [place] [phone] Manager Helpdesk: Michael Chen MD WBC (Bld) [#/Vol] 6.5 10*3/uL Normal 3.5-11.3 [facility] Comment on above: Performed By: #### C MPX, CDP #### [address] [address] Manager Helpdesk: Michael Chen MD Magnesiumon 01-28-2024 Magnesium [Mass/Vol] 1.6 mg/dL Normal 1.6-2.4 [facility] Comment on above: Performed By: #### C MPX, CDP #### [address] [address] Manager Helpdesk: Michael Chen MD Basic Metab w/rfx MGon 01-26 Anion gap [Moles/Vol] 11 mmol/L Normal 9-16 [facility] Comment on above: Performed By: #### C MPX, CDP #### [address] [address] Manager Helpdesk: Michael Chen MD Calcium [Mass/Vol] 7.4 mg/dL Low 8.6-10.4 [facility] Comment on above: Performed By: #### C MPX, CDP #### [facility] [place] [address] Manager Helpdesk: Michael Chen MD Chloride [Moles/Vol] 102 mmol/L Normal 98-107 [facility] Comment on above: Performed By: #### C MPX, CDP #### [facility] [facility] [address] [place] [phone] Manager Helpdesk: Michael Chen MD CO2 [Moles/Vol] 21 mmol/L Normal 20-31 [facility] Comment on above: Performed By: #### C MPX, CDP #### [facility] [address] [place] [address] 79286 Manager Helpdesk: Michael Chen MD Creatinine [Mass/Vol] 1.6 mg/dL High 0.50-0.90 [facility] Comment on above: Performed By: #### C MPX, CDP #### [facility] [employer] [address] [place] [address] 79201 Manager Helpdesk: Michael Chen MD GFR/1.73 sq M.predicted among non-blacks MDRD (S/P/Bld) [Vol rate/Area] 36 mL/min/{1.73_m2} Low >60 [facility] Comment on above: Result Comment: These [...] Performed By: #### C MPX, CDP #### [facility] [employer] [address] [place] [address] 46554 Manager Helpdesk: Michael Chen MD Glucose [Mass/Vol] 169 mg/dL High 74-99 [facility] Comment on above: Performed By: #### C MPX, CDP #### [facility] [address] [place] [address] 90530 Manager Helpdesk: Michael Chen MD Potassium [Moles/Vol] 4.4 mmol/L Normal 3.7-5.3 [facility] Comment on above: Performed By: #### C MPX, CDP #### [facility] [employer] [address] [place] [address] 55852 Manager Helpdesk: Michael Chen MD Sodium [Moles/Vol] 134 mmol/L Low 136-145 [facility] Comment on above: Performed By: #### C MPX, CDP #### [facility] [employer] [address] [place] [address] 22431 Manager Helpdesk: Michael Chen MD Urea nitrogen [Mass/Vol] 42 mg/dL High 8-23 [facility] Comment on above: Performed By: #### C MPX, CDP #### [facility] [employer] [address] [place] [address] 40196 Manager Helpdesk: Michael Chen MD CBC with Diffon 01-27-2024 Abs. Basophil <0.03 Normal 0.00-0.20 [facility] Comment on above: Performed By: #### C MPX, CDP #### [facility] [employer] [address] [place] [address] 22704 Manager Helpdesk: Michael Chen MD Abs.Imm.Granulocyte 0.06 k/uL Normal 0.00-0.30 [facility] Comment on above: Performed By: #### C MPX, CDP #### [facility] [employer] [address] [place] [address] 67863 Manager Helpdesk: Michael Chen MD Abs.Neutrophil (Seg) 5.93 k/uL Normal 1.50-8.10 [facility] Comment on above: Performed By: #### C MPX, CDP #### [facility] [employer] [address] [place] [address] [phone] Manager Helpdesk: Michael Chen MD Basophils/100 WBC (Bld) 0 % Normal 0-2 [facility] Comment on above: Performed By: #### C MPX, CDP #### [address] [address] Manager Helpdesk: Michael Chen MD Eosinophils (Bld) [#/Vol] 0.17 10*3/uL Normal 0.00-0.44 [facility] Comment on above: Performed By: #### C MPX, CDP #### [facility] [employer] [address] [place] [address] [phone] Manager Helpdesk: Michael Chen MD Eosinophils/100 WBC (Bld) 2 % Normal 1-4 [facility] Comment on above: Performed By: #### C MPX, CDP #### [address] [address] Manager Helpdesk: Michael Chen MD Erythrocyte distribution width (RBC) [Ratio] 13.8 % Normal 11.8-14.4 [facility] Comment on above: Performed By: #### C MPX, CDP #### [address] [address] Manager Helpdesk: Michael Chen MD Hematocrit (Bld) [Volume fraction] 26.3 % Low 36.3-47.1 [facility] Comment on above: Performed By: #### C MPX, CDP #### [facility] [employer] [address] [place] [address] [phone] Manager Helpdesk: Michael Chen MD Hemoglobin (Bld) [Mass/Vol] 7.8 g/dL Low 11.9-15.1 [facility] Comment on above: Performed By: #### C MPX, CDP #### [facility] [employer] [address] [place] [address] 95568 Manager Helpdesk: Michael Chen MD Immature granulocytes/100 WBC (Bld) 1 % High 0 [facility] Comment on above: Performed By: #### C MPX, CDP #### [place] [address] Manager Helpdesk: Michael Chen MD Lymphocytes (Bld) [#/Vol] 0.79 10*3/uL Low 1.10-3.70 [facility] Comment on above: Performed By: #### C MPX, CDP #### [place] [address] Manager Helpdesk: Michael Chen MD Lymphocytes/100 WBC (Bld) 11 % Low 24-43 [facility] Comment on above: Performed By: #### C MPX, CDP #### [place] [address] Manager Helpdesk: Michael Chen MD MCH (RBC) [Entitic mass] 29.8 pg Normal 25.2-33.5 [facility] Comment on above: Performed By: #### C MPX, CDP #### [place] [address] Manager Helpdesk: Michael Chen MD MCHC (RBC) [Mass/Vol] 29.7 g/dL Normal 28.4-34.8 [facility] Comment on above: Performed By: #### C MPX, CDP #### [place] [address] Manager Helpdesk: Michael Chen MD MCV (RBC) [Entitic vol] 100.4 fL Normal 82.6-102.9 [facility] Comment on above: Performed By: #### C MPX, CDP #### [place] [address] Manager Helpdesk: Michael Chen MD Monocytes (Bld) [#/Vol] 0.38 10*3/uL Normal 0.10-1.20 [facility] Comment on above: Performed By: #### C MPX, CDP #### [address] [address] Manager Helpdesk: Michael Chen MD Monocytes/100 WBC (Bld) 5 % Normal 3-12 [facility] Comment on above: Performed By: #### C MPX, CDP #### [address] [address] Manager Helpdesk: Michael Chen MD Neutrophil (Seg) 81 % High 36-65 [facility] Comment on above: Performed By: #### C MPX, CDP #### [address] [address] Manager Helpdesk: Michael Chen MD NRBC Automated 0.0 per 100 WBC Normal 0.0 [facility] Comment on above: Performed By: #### C MPX, CDP #### [address] [address] Manager Helpdesk: Michael Chen MD Platelet mean volume (Bld) [Entitic vol] 9.6 fL Normal 8.1-13.5 [facility] Comment on above: Performed By: #### C MPX, CDP #### [address] [address] Manager Helpdesk: Michael Chen MD Platelets (Bld) [#/Vol] 239 10*3/uL Normal 138-453 [facility] Comment on above: Performed By: #### C MPX, CDP #### [address] [address] Manager Helpdesk: Michael Chen MD RBC (Bld) [#/Vol] 2.62 10*6/uL Low 3.95-5.11 [facility] Comment on above: Performed By: #### C MPX, CDP #### [address] [address] Manager Helpdesk: Michael Chen MD WBC (Bld) [#/Vol] 7.3 10*3/uL Normal 3.5-11.3 [facility] Comment on above: Performed By: #### C MPX, CDP #### [employer] [address] [place] [address] Manager Helpdesk: Michael Chen MD CT CERVICAL SPINE WO [...] Alex Hickman MD 01/27/24 Final result Normal [facility] Basic Metab w/rfx MGon 01-25 Anion gap [Moles/Vol] 8 mmol/L Low 9-16 [facility] Comment on above: Performed By: #### C DP, BMPX #### [place] [address] Manager Helpdesk: Michael Chen MD Calcium [Mass/Vol] 7.8 mg/dL Low 8.6-10.4 [facility] Comment on above: Performed By: #### C DP, BMPX #### [place] [address] Manager Helpdesk: Michael Chen MD Chloride [Moles/Vol] 104 mmol/L Normal 98-107 [facility] Comment on above: Performed By: #### C DP, BMPX #### [facility] [employer] [address] [place] [address] Manager Helpdesk: Michael Chen MD CO2 [Moles/Vol] 23 mmol/L Normal 20-31 [facility] Comment on above: Performed By: #### C DP, BMPX #### [facility] [employer] [address] [place] [address] Manager Helpdesk: Michael Chen MD Creatinine [Mass/Vol] 1.6 mg/dL High 0.50-0.90 [facility] Comment on above: Performed By: #### C DP, BMPX #### [address] [address] Manager Helpdesk: Michael Chne MD GFR/1.73 sq M.predicted among non-blacks MDRD (S/P/Bld) [Vol rate/Area] 38 mL/min/{1.73_m2} Low >60 [facility] Comment on above: Result Comment: These [...] Performed By: #### C DP, BMPX #### [address] [address] Manager Helpdesk: Michael Chen MD Glucose [Mass/Vol] 109 mg/dL High 74-99 [facility] Comment on above: Performed By: #### C DP, BMPX #### [address] [address] Manager Helpdesk: Michael Chen MD Potassium [Moles/Vol] 5.3 mmol/L Normal 3.7-5.3 [facility] Comment on above: Performed By: #### C DP, BMPX #### [facility] [employer] [address] [place] [address] 65557 Manager Helpdesk: Michael Chen MD Sodium [Moles/Vol] 135 mmol/L Low 136-145 [facility] Comment on above: Performed By: #### C DP, BMPX #### [facility] [address] [place] [address] 97347 Manager Helpdesk: Michael Chen MD Urea nitrogen [Mass/Vol] 40 mg/dL High 8-23 [facility] Comment on above: Performed By: #### C DP, BMPX #### [facility] [employer] [address] [place] [address] 95984 Manager Helpdesk: Michael Chen MD Anion gap [Moles/Vol] 11 mmol/L Normal 9-16 [facility] Comment on above: Performed By: #### C DP, BMPX #### [address] [address] Manager Helpdesk: Michael Chen MD Calcium [Mass/Vol] 7.6 mg/dL Low 8.6-10.4 [facility] Comment on above: Performed By: #### C DP, BMPX #### [facility] [employer] [address] [place] [address] 14182 Manager Helpdesk: Michael Chen MD Chloride [Moles/Vol] 102 mmol/L Normal 98-107 [facility] Comment on above: Performed By: #### C DP, BMPX #### [facility] [employer] [address] [place] [address] 68822 Manager Helpdesk: Michael Chen MD CO2 [Moles/Vol] 20 mmol/L Normal 20-31 [facility] Comment on above: Performed By: #### C DP, BMPX #### [facility] [employer] [address] [place] [address] [phone] Manager Helpdesk: Michael Chen MD Creatinine [Mass/Vol] 1.7 mg/dL High 0.50-0.90 [facility] Comment on above: Performed By: #### C DP, BMPX #### [facility] [employer] [address] [place] [address] 39698 Manager Helpdesk: Michael Chen MD GFR/1.73 sq M.predicted among non-blacks MDRD (S/P/Bld) [Vol rate/Area] 35 mL/min/{1.73_m2} Low >60 [facility] Comment on above: Result Comment: These [...] #### C DP, BMPX #### [facility] [employer] [address] [place] [address] 79193 Manager Helpdesk: Michael Chen MD Glucose [Mass/Vol] 106 mg/dL High 74-99 [facility] Comment on above: Performed By: #### C DP, BMPX #### [facility] [employer] [address] [place] [address] 60617 Manager Helpdesk: Michael Chen MD Potassium [Moles/Vol] 5.0 mmol/L Normal 3.7-5.3 [facility] Comment on above: Performed By: #### C DP, BMPX #### [facility] [employer] [address] [place] [address] 70993 Manager Helpdesk: Michael Chen MD Sodium [Moles/Vol] 133 mmol/L Low 136-145 [facility] Comment on above: Performed By: #### C DP, BMPX #### [facility] [employer] [address] [place] [address] 44168 Manager Helpdesk: Michael Chen MD Urea nitrogen [Mass/Vol] 46 mg/dL High 8-23 [facility] Comment on above: Performed By: #### C DP, BMPX #### [facility] [employer] [address] [place] [address] 24831 Manager Helpdesk: Michael Chen MD CBC with Diffon 01-26-2024 Abs. Basophil <0.03 Normal 0.00-0.20 [facility] Comment on above: Performed By: #### C DP, BMPX #### [facility] [employer] [address] [place] [address] 58759 Manager Helpdesk: Michael Chen MD Abs.Imm.Granulocyte 0.13 k/uL Normal 0.00-0.30 [facility] Comment on above: Performed By: #### C DP, BMPX #### [address] [address] Manager Helpdesk: Michael Chen MD Abs.Neutrophil (Seg) 8.21 k/uL High 1.50-8.10 [facility] Comment on above: Performed By: #### C DP, BMPX #### [address] [address] Manager Helpdesk: Michael Chen MD Basophils/100 WBC (Bld) 0 % Normal 0-2 [facility] Comment on above: Performed By: #### C DP, BMPX #### [address] [address] Manager Helpdesk: Michael Chen MD Eosinophils (Bld) [#/Vol] 0.19 10*3/uL Normal 0.00-0.44 [facility] Comment on above: Performed By: #### C DP, BMPX #### [address] [address]70 Manager Helpdesk: Michael Chen MD Eosinophils/100 WBC (Bld) 2 % Normal 1-4 [facility] Comment on above: Performed By: #### C DP, BMPX #### [address] [address] Manager Helpdesk: Michael Chen MD Erythrocyte distribution width (RBC) [Ratio] 13.9 % Normal 11.8-14.4 [facility] Comment on above: Performed By: #### C DP, BMPX #### [facility] [employer] [address] [place] [address] 47642 Manager Helpdesk: Michael Chen MD Hematocrit (Bld) [Volume fraction] 28.3 % Low 36.3-47.1 [facility] Comment on above: Performed By: #### C DP, BMPX #### [place] [address] Manager Helpdesk: Michael Chen MD Hemoglobin (Bld) [Mass/Vol] 8.6 g/dL Low 11.9-15.1 [facility] Comment on above: Performed By: #### C DP, BMPX #### [place] [address] Manager Helpdesk: Michael Chen MD Immature granulocytes/100 WBC (Bld) 1 % High 0 [facility] Comment on above: Performed By: #### C DP, BMPX #### [place] [address] Manager Helpdesk: Michael Chen MD Lymphocytes (Bld) [#/Vol] 1.09 10*3/uL Low 1.10-3.70 [facility] Comment on above: Performed By: #### C DP, BMPX #### [place] [address] Manager Helpdesk: Michael Chen MD Lymphocytes/100 WBC (Bld) 10 % Low 24-43 [facility] Comment on above: Performed By: #### C DP, BMPX #### [place] [address] Manager Helpdesk: Michael Chen MD MCH (RBC) [Entitic mass] 29.5 pg Normal 25.2-33.5 [facility] Comment on above: Performed By: #### C DP, BMPX #### [place] [address] Manager Helpdesk: Michael Chen MD MCHC (RBC) [Mass/Vol] 30.4 g/dL Normal 28.4-34.8 [facility] Comment on above: Performed By: #### C DP, BMPX #### [address] [address] Manager Helpdesk: Michael Chen MD MCV (RBC) [Entitic vol] 96.9 fL Normal 82.6-102.9 [facility] Comment on above: Performed By: #### C DP, BMPX #### [address] [address] Manager Helpdesk: Michael Chen MD Monocytes (Bld) [#/Vol] 0.85 10*3/uL Normal 0.10-1.20 [facility] Comment on above: Performed By: #### C DP, BMPX #### [address] [address] Manager Helpdesk: Michael Chen MD Monocytes/100 WBC (Bld) 8 % Normal 3-12 [facility] Comment on above: Performed By: #### C DP, BMPX #### [address] [address] Manager Helpdesk: Michael Chen MD Neutrophil (Seg) 79 % High 36-65 [facility] Comment on above: Performed By: #### C DP, BMPX #### [address] [address] Manager Helpdesk: Michael Chen MD NRBC Automated 0.0 per 100 WBC Normal 0.0 [facility] Comment on above: Performed By: #### C DP, BMPX #### [address] [address] Manager Helpdesk: Michael Chen MD Platelet mean volume (Bld) [Entitic vol] 9.7 fL Normal 8.1-13.5 [facility] Comment on above: Performed By: #### C DP, BMPX #### [address] [address] Manager Helpdesk: Michael Chen MD Platelets (Bld) [#/Vol] 270 10*3/uL Normal 138-453 [facility] Comment on above: Performed By: #### C DP, BMPX #### [address] [address] Manager Helpdesk: Michael Chen MD RBC (Bld) [#/Vol] 2.92 10*6/uL Low 3.95-5.11 [facility] Comment on above: Performed By: #### C DP, BMPX #### [address] [address] Manager Helpdesk: Michael Chen MD WBC (Bld) [#/Vol] 10.5 10*3/uL Normal 3.5-11.3 [facility] Comment on above: Performed By: #### C DP, BMPX #### [address] [address] Manager Helpdesk: Michael Chen MD Abs. Basophil 0.03 k/uL Normal 0.00-0.20 [facility] Comment on above: Performed By: #### C DP, BMPX #### [address] [address] Manager Helpdesk: Michael Chen MD Abs.Imm.Granulocyte 0.08 k/uL Normal 0.00-0.30 [facility] Comment on above: Performed By: #### C DP, BMPX #### [facility] [employer] [address] [place] [address] 76162 Manager Helpdesk: Michael Chen MD Abs.Neutrophil (Seg) 12.75 k/uL High 1.50-8.10 [facility] Comment on above: Performed By: #### C DP, BMPX #### [facility] [employer] [address] [place] [address] 39323 Manager Helpdesk: Michael Chen MD Basophils/100 WBC (Bld) 0 % Normal 0-2 [facility] Comment on above: Performed By: #### C DP, BMPX #### [address] [address] Manager Helpdesk: Michael Chen MD Eosinophils (Bld) [#/Vol] 0.16 10*3/uL Normal 0.00-0.44 [facility] Comment on above: Performed By: #### C DP, BMPX #### [address] [address] Manager Helpdesk: Michael Chen MD Eosinophils/100 WBC (Bld) 1 % Normal 1-4 [facility] Comment on above: Performed By: #### C DP, BMPX #### [address] [address] Manager Helpdesk: Michael Chen MD Erythrocyte distribution width (RBC) [Ratio] 13.7 % Normal 11.8-14.4 [facility] Comment on above: Performed By: #### C DP, BMPX #### [address] [address] Manager Helpdesk: Michael Chen MD Hematocrit (Bld) [Volume fraction] 28.8 % Low 36.3-47.1 [facility] Comment on above: Performed By: #### C DP, BMPX #### [place] [address] Manager Helpdesk: Michael Chen MD Hemoglobin (Bld) [Mass/Vol] 8.8 g/dL Low 11.9-15.1 [facility] Comment on above: Performed By: #### C DP, BMPX #### [facility] [employer] [address] [place] [address] 66689 Manager Helpdesk: Michael Chen MD Immature granulocytes/100 WBC (Bld) 1 % High 0 [facility] Comment on above: Performed By: #### C DP, BMPX #### [place] [address] Manager Helpdesk: Micahel Chen MD Lymphocytes (Bld) [#/Vol] 1.15 10*3/uL Normal 1.10-3.70 [facility] Comment on above: Performed By: #### C DP, BMPX #### [place] [address] Manager Helpdesk: Michael Chen MD Lymphocytes/100 WBC (Bld) 8 % Low 24-43 [facility] Comment on above: Performed By: #### C DP, BMPX #### [place] [address] Manager Helpdesk: Michael Chen MD MCH (RBC) [Entitic mass] 29.6 pg Normal 25.2-33.5 [facility] Comment on above: Performed By: #### C DP, BMPX #### [place] [address] Manager Helpdesk: Michael Chen MD MCHC (RBC) [Mass/Vol] 30.6 g/dL Normal 28.4-34.8 [facility] Comment on above: Performed By: #### C DP, BMPX #### [place] [address] Manager Helpdesk: Michael Chen MD MCV (RBC) [Entitic vol] 97.0 fL Normal 82.6-102.9 [facility] Comment on above: Performed By: #### C DP, BMPX #### [place] [address] Manager Helpdesk: Michael Chen MD Monocytes (Bld) [#/Vol] 0.77 10*3/uL Normal 0.10-1.20 [facility] Comment on above: Performed By: #### C DP, BMPX #### [address] [address] Manager Helpdesk: Michale Chen MD Monocytes/100 WBC (Bld) 5 % Normal 3-12 [facility] Comment on above: Performed By: #### C DP, BMPX #### [address] [address] Manager Helpdesk: Michael Chen MD Neutrophil (Seg) 85 % High 36-65 [facility] Comment on above: Performed By: #### C DP, BMPX #### [address] [address] Manager Helpdesk: Michael Chen MD NRBC Automated 0.0 per 100 WBC Normal 0.0 [facility] Comment on above: Performed By: #### C DP, BMPX #### [address] [address] Manager Helpdesk: Michael Chen MD Platelet mean volume (Bld) [Entitic vol] 9.1 fL Normal 8.1-13.5 [facility] Comment on above: Performed By: #### C DP, BMPX #### [address] [address] Manager Helpdesk: Michael Chen MD Platelets (Bld) [#/Vol] 269 10*3/uL Normal 138-453 [facility] Comment on above: Performed By: #### C DP, BMPX #### [address] [address] Manager Helpdesk: Michael Chen MD RBC (Bld) [#/Vol] 2.97 10*6/uL Low 3.95-5.11 [facility] Comment on above: Performed By: #### C DP, BMPX #### [address] [address] Manager Helpdesk: Michael Chen MD WBC (Bld) [#/Vol] 14.9 10*3/uL High 3.5-11.3 [facility] Comment on above: Performed By: #### C DP, BMPX #### [facility] [employer] [address], [place] [phone] Manager Helpdesk: Michael Chen MD Cult,Urineon 01-26-2024 Cult,Urine Specimen Description .INDWELLING CATH URINE Special Requests FIRST INSERTION Culture NO GROWTH Report Status FINAL 01/26/2024 Normal [facility] Comment on above: Performed By: #### U RC #### [facility] [employer] [address] [place] [address] Manager Helpdesk: Michael Chen MD XR CERVICAL SPINE (2-3 [...] DO 01/26/24 Edited Result - FINAL Normal [facility] Basic Metab w/rfx MGon 01-24 Anion gap [Moles/Vol] 9 mmol/L Normal 9-16 [facility] Comment on above: Performed By: #### B MPX, CDP #### [facility] [address] [place] [address]41 Manager Helpdesk: Michael Chen MD Calcium [Mass/Vol] 7.9 mg/dL Low 8.6-10.4 [facility] Comment on above: Performed By: #### B MPX, CDP #### [facility] [address] [place] [address] 99838 Manager Helpdesk: Michael Chen MD Chloride [Moles/Vol] 105 mmol/L Normal 98-107 [facility] Comment on above: Performed By: #### B MPX, CDP #### [facility] [address] [place] [address]8080 Manager Helpdesk: Michael Chen MD CO2 [Moles/Vol] 22 mmol/L Normal 20-31 [facility] Comment on above: Performed By: #### B MPX, CDP #### [facility] [address] [place] [address]2357 Manager Helpdesk: Michael Chen MD Creatinine [Mass/Vol] 1.7 mg/dL High 0.50-0.90 [facility] Comment on above: Performed By: #### B MPX, CDP #### [facility] [employer] [address] [place] [address] [phone] Manager Helpdesk: Michael Chen MD GFR/1.73 sq M.predicted among non-blacks MDRD (S/P/Bld) [Vol rate/Area] 33 mL/min/{1.73_m2} Low >60 [facility] Comment on above: Result Comment: These [...] Performed By: #### B MPX, CDP #### [facility] [employer] [address] [place] [address] 84003 Manager Helpdesk: Michael Chen MD Glucose [Mass/Vol] 104 mg/dL High 74-99 [facility] Comment on above: Performed By: #### B MPX, CDP #### [facility] [employer] [address] [place] [address] 50262 Manager Helpdesk: Michael Chen MD Potassium [Moles/Vol] 5.1 mmol/L Normal 3.7-5.3 [facility] Comment on above: Performed By: #### B MPX, CDP #### [facility] [employer] [address] [place] [address] 8[address]37 Manager Helpdesk: Michael Chen MD Sodium [Moles/Vol] 136 mmol/L Normal 136-145 [facility] Comment on above: Performed By: #### B MPX, CDP #### [address] [address] Manager Helpdesk: Michael Chen MD Urea nitrogen [Mass/Vol] 51 mg/dL High 8-23 [facility] Comment on above: Performed By: #### B MPX, CDP #### [facility] [employer] [address] [place] [address]184 Manager Helpdesk: Michael Chen MD CBC with Diffon 01-25-2024 Abs. Basophil <0.03 Normal 0.00-0.20 [facility] Comment on above: Performed By: #### B MPX, CDP #### [facility] [employer] [address] [place] [phone] Manager Helpdesk: Michael Chen MD Abs.Imm.Granulocyte 0.03 k/uL Normal 0.00-0.30 [facility] Comment on above: Performed By: #### B MPX, CDP #### [address] [address] Manager Helpdesk: Michael Chen MD Abs.Neutrophil (Seg) 3.64 k/uL Normal 1.50-8.10 [facility] Comment on above: Performed By: #### B MPX, CDP #### [address] [address] Manager Helpdesk: Michael Chen MD Basophils/100 WBC (Bld) 0 % Normal 0-2 [facility] Comment on above: Performed By: #### B MPX, CDP #### [address] [address] Manager Helpdesk: Michael Chen MD Eosinophils (Bld) [#/Vol] 0.23 10*3/uL Normal 0.00-0.44 [facility] Comment on above: Performed By: #### B MPX, CDP #### [address] [address] Manager Helpdesk: Michael Chen MD Eosinophils/100 WBC (Bld) 4 % Normal 1-4 [facility] Comment on above: Performed By: #### B MPX, CDP #### [address] [address] Manager Helpdesk: Michael Chen MD Erythrocyte distribution width (RBC) [Ratio] 13.7 % Normal 11.8-14.4 [facility] Comment on above: Performed By: #### B MPX, CDP #### [facility] [employer] [address] [place] [phone] Manager Helpdesk: Michael Chen MD Hematocrit (Bld) [Volume fraction] 26.8 % Low 36.3-47.1 [facility] Comment on above: Performed By: #### B MPX, CDP #### [facility] [employer] [address] [place] [address] Manager Helpdesk: Michael Chen MD Hemoglobin (Bld) [Mass/Vol] 8.0 g/dL Low 11.9-15.1 [facility] Comment on above: Performed By: #### B MPX, CDP #### [address] [address] Manager Helpdesk: Michael Chen MD Immature granulocytes/100 WBC (Bld) 1 % High 0 [facility] Comment on above: Performed By: #### B MPX, CDP #### [address] [address] Manager Helpdesk: Michael Chen MD Lymphocytes (Bld) [#/Vol] 1.38 10*3/uL Normal 1.10-3.70 [facility] Comment on above: Performed By: #### B MPX, CDP #### [address] [address] Manager Helpdesk: Michael Chen MD Lymphocytes/100 WBC (Bld) 24 % Normal 24-43 [facility] Comment on above: Performed By: #### B MPX, CDP #### [address] [address] Manager Helpdesk: Michael Chen MD MCH (RBC) [Entitic mass] 29.3 pg Normal 25.2-33.5 [facility] Comment on above: Performed By: #### B MPX, CDP #### [facility] [address] [place] [address] Manager Helpdesk: Michael Chen MD MCHC (RBC) [Mass/Vol] 29.9 g/dL Normal 28.4-34.8 [facility] Comment on above: Performed By: #### B MPX, CDP #### [address] [address] Manager Helpdesk: Michael Chen MD MCV (RBC) [Entitic vol] 98.2 fL Normal 82.6-102.9 [facility] Comment on above: Performed By: #### B MPX, CDP #### [address] [address] Manager Helpdesk: Michael Chen MD Monocytes (Bld) [#/Vol] 0.58 10*3/uL Normal 0.10-1.20 [facility] Comment on above: Performed By: #### B MPX, CDP #### [address] [address] Manager Helpdesk: Michael Chen MD Monocytes/100 WBC (Bld) 10 % Normal 3-12 [facility] Comment on above: Performed By: #### B MPX, CDP #### [address] [address] Manager Helpdesk: Michael Chen MD Neutrophil (Seg) 61 % Normal 36-65 [facility] Comment on above: Performed By: #### B MPX, CDP #### [address] [address] Manager Helpdesk: Michael Chen MD NRBC Automated 0.0 per 100 WBC Normal 0.0 [facility] Comment on above: Performed By: #### B MPX, CDP #### [address] [address] Manager Helpdesk: Michael Chen MD Platelet mean volume (Bld) [Entitic vol] 9.1 fL Normal 8.1-13.5 [facility] Comment on above: Performed By: #### B MPX, CDP #### [address] [address] Manager Helpdesk: Michael Chen MD Platelets (Bld) [#/Vol] 227 10*3/uL Normal 138-453 [facility] Comment on above: Performed By: #### B MPX, CDP #### [facility] [address] [place] [address] Manager Helpdesk: Michael hCen MD RBC (Bld) [#/Vol] 2.73 10*6/uL Low 3.95-5.11 [facility] Comment on above: Performed By: #### B MPX, CDP #### [facility] [employer] [address] [place] [address] Manager Helpdesk: Michale Chen MD WBC (Bld) [#/Vol] 5.9 10*3/uL Normal 3.5-11.3 [facility] Comment on above: Performed By: #### B MPX, CDP #### [facility] [employer] [address] [place] [address] Manager Helpdesk: Michael Chen MD FLUORO FOR SURGICAL PROCEDUR ESon 01-25-2024 FLUORO FOR SURGICAL PROCEDURES Radiology exam is complete. No Radiologist dictation. Please follow up with ordering provider. Final result Normal [facility] Hgb/Hcton 01-25-2024 Hematocrit (Bld) [Volume fraction] 30.8 % Low 36.3-47.1 [facility] Comment on above: Performed By: #### C DP, BMPX #### [facility] [employer] [address] [place] [address] Manager Helpdesk: Michael Chen MD Hemoglobin (Bld) [Mass/Vol] 9.5 g/dL Low 11.9-15.1 [facility] Comment on above: Performed By: #### C DP, BMPX #### [facility] [employer] [address] [place] [address] Manager Helpdesk: Michael Chen MD Basic Metab w/rfx MGon 01-23 Anion gap [Moles/Vol] 10 mmol/L Normal 9-16 [facility] Comment on above: Performed By: #### C DP, BMPX #### [facility] [place] [address] Manager Helpdesk: Michael Chen MD Calcium [Mass/Vol] 8.2 mg/dL Low 8.6-10.4 [facility] Comment on above: Performed By: #### C DP, BMPX #### [facility] [address] [place] [address] Manager Helpdesk: Michael Chen MD Chloride [Moles/Vol] 104 mmol/L Normal 98-107 [facility] Comment on above: Performed By: #### C DP, BMPX #### [facility] [address] [place] [address] Manager Helpdesk: Michael Chen MD CO2 [Moles/Vol] 22 mmol/L Normal 20-31 [facility] Comment on above: Performed By: #### C DP, BMPX #### [facility] [address] [place] [address] Manager Helpdesk: Michael Chen MD Creatinine [Mass/Vol] 1.7 mg/dL High 0.50-0.90 [facility] Comment on above: Performed By: #### C DP, BMPX #### [facility] [address] [place] [address] Manager Helpdesk: Michael Chen MD GFR/1.73 sq M.predicted among non-blacks MDRD (S/P/Bld) [Vol rate/Area] 34 mL/min/{1.73_m2} Low >60 [facility] Comment on above: Result Comment: These [...] Performed By: #### C DP, BMPX #### [employer] [address] [place] [address] Manager Helpdesk: Michael Chen MD Glucose [Mass/Vol] 100 mg/dL High 74-99 [facility] Comment on above: Performed By: #### C DP, BMPX #### [address] [address] Manager Helpdesk: Michael Chen MD Potassium [Moles/Vol] 4.9 mmol/L Normal 3.7-5.3 [facility] Comment on above: Result Comment: SPEC IMEN SLIGHTLY HEMOLYZED, RESULTS MAY BE ADVERSELY AFFECTED. Performed By: #### C DP, BMPX #### [address] [address] Manager Helpdesk: Michael Chen MD Sodium [Moles/Vol] 136 mmol/L Normal 136-145 [facility] Comment on above: Performed By: #### C DP, BMPX #### [address] [address] Manager Helpdesk: Michael Chen MD Urea nitrogen [Mass/Vol] 51 mg/dL High 8-23 [facility] Comment on above: Performed By: #### C DP, BMPX #### [address] [address] Manager Helpdesk: Michael Chen MD CBC with Diffon 01-24-2024 Abs. Basophil 0.03 k/uL Normal 0.00-0.20 [facility] Comment on above: Performed By: #### C DP, BMPX #### [facility] [employer] [address] [place] [address] Manager Helpdesk: Michael Chen MD Abs.Imm.Granulocyte 0.11 k/uL Normal 0.00-0.30 [facility] Comment on above: Performed By: #### C DP, BMPX #### [facility] [employer] [address] [place] [address] Manager Helpdesk: Michael Chen MD Abs.Neutrophil (Seg) 3.73 k/uL Normal 1.50-8.10 [facility] Comment on above: Performed By: #### C DP, BMPX #### [address] [address] Manager Helpdesk: Michael Chen MD Basophils/100 WBC (Bld) 1 % Normal 0-2 [facility] Comment on above: Performed By: #### C DP, BMPX #### [address] [address] Manager Helpdesk: Michael Chen MD Eosinophils (Bld) [#/Vol] 0.24 10*3/uL Normal 0.00-0.44 [facility] Comment on above: Performed By: #### C DP, BMPX #### [address] [address] Manager Helpdesk: Michael Chen MD Eosinophils/100 WBC (Bld) 4 % Normal 1-4 [facility] Comment on above: Performed By: #### C DP, BMPX #### [address] [address] Manager Helpdesk: Michael Chen MD Erythrocyte distribution width (RBC) [Ratio] 13.8 % Normal 11.8-14.4 [facility] Comment on above: Performed By: #### C DP, BMPX #### [address] [address] Manager Helpdesk: Michael Chen MD Hematocrit (Bld) [Volume fraction] 29.4 % Low 36.3-47.1 [facility] Comment on above: Performed By: #### C DP, BMPX #### [address] [address] Manager Helpdesk: Michael Chen MD Hemoglobin (Bld) [Mass/Vol] 9.2 g/dL Low 11.9-15.1 [facility] Comment on above: Performed By: #### C DP, BMPX #### [address] [address] Manager Helpdesk: Michael Chen MD Immature granulocytes/100 WBC (Bld) 2 % High 0 [facility] Comment on above: Performed By: #### C DP, BMPX #### [address] [address] Manager Helpdesk: Michael Chen MD Lymphocytes (Bld) [#/Vol] 1.63 10*3/uL Normal 1.10-3.70 [facility] Comment on above: Performed By: #### C DP, BMPX #### [address] [address] Manager Helpdesk: Michael Chen MD Lymphocytes/100 WBC (Bld) 25 % Normal 24-43 [facility] Comment on above: Performed By: #### C DP, BMPX #### [address] [address] Manager Helpdesk: Michael Chen MD MCH (RBC) [Entitic mass] 30.8 pg Normal 25.2-33.5 [facility] Comment on above: Performed By: #### C DP, BMPX #### [address] [address] Manager Helpdesk: Michael Chen MD MCHC (RBC) [Mass/Vol] 31.3 g/dL Normal 28.4-34.8 [facility] Comment on above: Performed By: #### C DP, BMPX #### [address] [address] Manager Helpdesk: Michael Chen MD MCV (RBC) [Entitic vol] 98.3 fL Normal 82.6-102.9 [facility] Comment on above: Performed By: #### C DP, BMPX #### [address] [address] Manager Helpdesk: Michael Chen MD Monocytes (Bld) [#/Vol] 0.74 10*3/uL Normal 0.10-1.20 [facility] Comment on above: Performed By: #### C DP, BMPX #### [address] [address] Manager Helpdesk: Michael Chen MD Monocytes/100 WBC (Bld) 11 % Normal 3-12 [facility] Comment on above: Performed By: #### C DP, BMPX #### [address] [address] Manager Helpdesk: Michael Chen MD Neutrophil (Seg) 57 % Normal 36-65 [facility] Comment on above: Performed By: #### C DP, BMPX #### [address] [address] Manager Helpdesk: Michael Chen MD NRBC Automated 0.0 per 100 WBC Normal 0.0 [facility] Comment on above: Performed By: #### C DP, BMPX #### [address] [address] Manager Helpdesk: Michael Chen MD Platelet mean volume (Bld) [Entitic vol] 9.9 fL Normal 8.1-13.5 [facility] Comment on above: Performed By: #### C DP, BMPX #### [address] [address] Manager Helpdesk: Michael Chen MD Platelets (Bld) [#/Vol] 234 10*3/uL Normal 138-453 [facility] Comment on above: Performed By: #### C DP, BMPX #### [address] [phone] Manager Helpdesk: Michael Chen MD RBC (Bld) [#/Vol] 2.99 10*6/uL Low 3.95-5.11 [facility] Comment on above: Performed By: #### C DP, BMPX #### [address] [address] Manager Helpdesk: Michael Chen MD WBC (Bld) [#/Vol] 6.5 10*3/uL Normal 3.5-11.3 [facility] Comment on above: Performed By: #### C DP, BMPX #### [place] [address] Manager Helpdesk: Michael Chen MD REINALDO Screen w/reflexon 2023 REINALDO Screen Negative Normal NEG [facility] Comment on above: Performed By: #### C MPX, CDP #### [place] [address] Manager Helpdesk: Michael Chen MD Anti-dsDNA <0.5 Normal <10.0 [facility] Comment on above: Result Comment: Reference Range: <10.0 Negative 10.0-15.0 Equivocal >15.0 Positive Performed By: #### C MPX, CDP #### [place] [address] Manager Helpdesk: Michael Chen MD CH[place] Screen 0.1 U/mL Normal <0.7 [facility] Comment on above: Result Comment: Reference Range: <0.7 Negative 0.7-1.0 Equivocal >1.0 Positive [place] Screen includes U1RNP,RNP70,Sm,Ro(SS-A),La(SS-B),CENP,Scl-70,Elli-1 Performed By: #### C MPX, CDP #### [place] [address] Manager Helpdesk: Michael Chen MD REINALDO Screen Negative Normal NEG [facility] Comment on above: Performed By: #### C MPX, CDP #### [facility] [employer] [address] [place] [address] [phone] Manager Helpdesk: Michael Chen MD Anti-dsDNA 0.7 IU/mL Normal <10.0 [facility] Comment on above: Result Comment: Reference Range: <10.0 Negative 10.0-15.0 Equivocal >15.0 Positive Performed By: #### C MPX, CDP #### [address] [phone] Manager Helpdesk: Michael Chen MD CH[place] Screen 0.2 U/mL Normal <0.7 [facility] Comment on above: Result Comment: Reference Range: <0.7 Negative 0.7-1.0 Equivocal >1.0 Positive [place] Screen includes U1RNP,RNP70,Sm,Ro(SS-A),La(SS-B),CENP,Scl-70,Elli-1 Performed By: #### C MPX, CDP #### [place] [address] Manager Helpdesk: Michael Chen MD Anti CCPon 1 Anti CCP 0.6 U/mL Normal 0.0-7.0 [facility] Comment on above: Result Comment: Reference Range: <7.0 Negative 7.0-10.0 Equivocal >10.0 Positive Performed By: #### C MPX, CDP #### [facility] [employer] [address] [place] [address] Manager Helpdesk: Michael Chen MD Basic Metab w/rfx MGon 01-22 Anion gap [Moles/Vol] 8 mmol/L Low 9-16 [facility] Comment on above: Performed By: #### B MPX, CDP #### [place] [id number] Manager Helpdesk: Michael Chen MD Calcium [Mass/Vol] 8.2 mg/dL Low 8.6-10.4 [facility] Comment on above: Performed By: #### B MPX, CDP #### [address] [address] Manager Helpdesk: Michael Chen MD Chloride [Moles/Vol] 106 mmol/L Normal 98-107 [facility] Comment on above: Performed By: #### B MPX, CDP #### [facility] [address] [place] [address] Manager Helpdesk: Michael Chen MD CO2 [Moles/Vol] 21 mmol/L Normal 20-31 [facility] Comment on above: Performed By: #### B MPX, CDP #### [address] [address] Manager Helpdesk: Michael Chen MD Creatinine [Mass/Vol] 1.7 mg/dL High 0.50-0.90 [facility] Comment on above: Performed By: #### B MPX, CDP #### [address] [address] Manager Helpdesk: Michael Chen MD GFR/1.73 sq M.predicted among non-blacks MDRD (S/P/Bld) [Vol rate/Area] 33 mL/min/{1.73_m2} Low >60 [facility] Comment on above: Result Comment: These [...] Performed By: #### B MPX, CDP #### [address] [address] Manager Helpdesk: Michael Chen MD Glucose [Mass/Vol] 88 mg/dL Normal 74-99 [facility] Comment on above: Performed By: #### B MPX, CDP #### [address] [address] Manager Helpdesk: Michael Chen MD Potassium [Moles/Vol] 4.8 mmol/L Normal 3.7-5.3 [facility] Comment on above: Performed By: #### B MPX, CDP #### [facility] [employer] [address] [place] [address] Manager Helpdesk: Michael Chen MD Sodium [Moles/Vol] 135 mmol/L Low 136-145 [facility] Comment on above: Performed By: #### B MPX, CDP #### [address] [address] Manager Helpdesk: Michael Chen MD Urea nitrogen [Mass/Vol] 56 mg/dL High 8-23 [facility] Comment on above: Performed By: #### B MPX, CDP #### [place] [address] Manager Helpdesk: Michael Chen MD CBC with Diffon 01-23-2024 Abs. Basophil <0.03 Normal 0.00-0.20 [facility] Comment on above: Performed By: #### C DP BMPX #### [facility] [employer] [address] [place] [address] Manager Helpdesk: Michael Chen MD Abs.Imm.Granulocyte 0.03 k/uL Normal 0.00-0.30 [facility] Comment on above: Performed By: #### C OBIE BMPX #### [address] [address] Manager Helpdesk: Michael Chen MD Abs.Neutrophil (Seg) 5.50 k/uL Normal 1.50-8.10 [facility] Comment on above: Performed By: #### C DP, BMPX #### [address] [address] Manager Helpdesk: Michael Chen MD Basophils/100 WBC (Bld) 0 % Normal 0-2 [facility] Comment on above: Performed By: #### C DP, BMPX #### [address] [address] Manager Helpdesk: Michael Chne MD Eosinophils (Bld) [#/Vol] 0.15 10*3/uL Normal 0.00-0.44 [facility] Comment on above: Performed By: #### C DP, BMPX #### [facility] [employer] [address] [place] [address] Manager Helpdesk: Michael Chen MD Eosinophils/100 WBC (Bld) 2 % Normal 1-4 [facility] Comment on above: Performed By: #### C DP, BMPX #### [facility] [employer] [address] [place] [address] Manager Helpdesk: Michael Chen MD Erythrocyte distribution width (RBC) [Ratio] 13.7 % Normal 11.8-14.4 [facility] Comment on above: Performed By: #### C DP, BMPX #### [facility] [employer] [address] [place] [address] Manager Helpdesk: Michael Chen MD Hematocrit (Bld) [Volume fraction] 28.9 % Low 36.3-47.1 [facility] Comment on above: Performed By: #### C DP, BMPX #### [facility] [employer] [address] [place] [address] Manager Helpdesk: Michael Chen MD Hemoglobin (Bld) [Mass/Vol] 8.6 g/dL Low 11.9-15.1 [facility] Comment on above: Performed By: #### C DP, BMPX #### [address] [address] Manager Helpdesk: Michael Chen MD Immature granulocytes/100 WBC (Bld) 0 % Normal 0 [facility] Comment on above: Performed By: #### C DP, BMPX #### [address] [address] Manager Helpdesk: Michael Chen MD Lymphocytes (Bld) [#/Vol] 1.07 10*3/uL Low 1.10-3.70 [facility] Comment on above: Performed By: #### C DP, BMPX #### [address] [address] Manager Helpdesk: Michael Chen MD Lymphocytes/100 WBC (Bld) 14 % Low 24-43 [facility] Comment on above: Performed By: #### C DP, BMPX #### [address] [address] Manager Helpdesk: Michael Chen MD MCH (RBC) [Entitic mass] 30.2 pg Normal 25.2-33.5 [facility] Comment on above: Performed By: #### C DP, BMPX #### [address] [address] Manager Helpdesk: Michael Chen MD MCHC (RBC) [Mass/Vol] 29.8 g/dL Normal 28.4-34.8 [facility] Comment on above: Performed By: #### C DP, BMPX #### [address] [address] Manager Helpdesk: Michael Chen MD MCV (RBC) [Entitic vol] 101.4 fL Normal 82.6-102.9 [facility] Comment on above: Performed By: #### C DP, BMPX #### [address] [address] Manager Helpdesk: Michael Chen MD Monocytes (Bld) [#/Vol] 0.72 10*3/uL Normal 0.10-1.20 [facility] Comment on above: Performed By: #### C DP, BMPX #### [address] [address] Manager Helpdesk: Michael Chen MD Monocytes/100 WBC (Bld) 10 % Normal 3-12 [facility] Comment on above: Performed By: #### C DP, BMPX #### [address] [address] Manager Helpdesk: Michael Chen MD Neutrophil (Seg) 74 % High 36-65 [facility] Comment on above: Performed By: #### C DP, BMPX #### [address] [address] Manager Helpdesk: Michael Chen MD NRBC Automated 0.0 per 100 WBC Normal 0.0 [facility] Comment on above: Performed By: #### C DP, BMPX #### [address] [address] Manager Helpdesk: Michael Chen MD Platelet mean volume (Bld) [Entitic vol] 9.9 fL Normal 8.1-13.5 [facility] Comment on above: Performed By: #### C DP, BMPX #### [address] [address] Manager Helpdesk: Michael Chen MD Platelets (Bld) [#/Vol] 292 10*3/uL Normal 138-453 [facility] Comment on above: Performed By: #### C DP, BMPX #### [address] [address] Manager Helpdesk: Michael Chen MD RBC (Bld) [#/Vol] 2.85 10*6/uL Low 3.95-5.11 [facility] Comment on above: Performed By: #### C DP, BMPX #### [address] [address] Manager Helpdesk: Michael Chen MD WBC (Bld) [#/Vol] 7.5 10*3/uL Normal 3.5-11.3 [facility] Comment on above: Performed By: #### C DP, BMPX #### [address] [address] Manager Helpdesk: Michael Chen MD APTTon 01-22-2024 aPTT Coag (d) [Time] 29.1 s Normal 23.0-36.5 [facility] Comment on above: Result Comment: IV Heparin Therapy Range: 66.0-92.0 sec Performed By: #### C MPX, CDP #### [address] [address] Manager Helpdesk: Michael Chen MD Basic Metab w/rfx MGon 01-21 Anion gap [Moles/Vol] 10 mmol/L Normal 9-16 [facility] Comment on above: Performed By: #### C MPX, CDP #### [address] [address] Manager Helpdesk: Michael Chen MD Calcium [Mass/Vol] 8.3 mg/dL Low 8.6-10.4 [facility] Comment on above: Performed By: #### C MPX, CDP #### [address] [address] Manager Helpdesk: Michael Chen MD Chloride [Moles/Vol] 107 mmol/L Normal 98-107 [facility] Comment on above: Performed By: #### C MPX, CDP #### [address] [address] Manager Helpdesk: Michael Chen MD CO2 [Moles/Vol] 21 mmol/L Normal 20-31 [facility] Comment on above: Performed By: #### C MPX, CDP #### [address] [address] Manager Helpdesk: Michael Chen MD Creatinine [Mass/Vol] 1.8 mg/dL High 0.50-0.90 [facility] Comment on above: Performed By: #### C MPX, CDP #### [address] [address] Manager Helpdesk: Michael Chen MD GFR/1.73 sq M.predicted among non-blacks MDRD (S/P/Bld) [Vol rate/Area] 32 mL/min/{1.73_m2} Low >60 [facility] Comment on above: Result Comment: These [...] Performed By: #### C MPX, CDP #### [address] [address] Manager Helpdesk: Michael Chen MD Glucose [Mass/Vol] 86 mg/dL Normal 74-99 [facility] Comment on above: Performed By: #### C MPX, CDP #### [facility] [employer] [address] [place] [address] Manager Helpdesk: Michael Chen MD Potassium [Moles/Vol] 4.1 mmol/L Normal 3.7-5.3 [facility] Comment on above: Performed By: #### C MPX, CDP #### [address] [address] Manager Helpdesk: Michael Chen MD Sodium [Moles/Vol] 138 mmol/L Normal 136-145 [facility] Comment on above: Performed By: #### C MPX, CDP #### [address] [address] Manager Helpdesk: Michael Chen MD Urea nitrogen [Mass/Vol] 66 mg/dL High 8-23 [facility] Comment on above: Performed By: #### C MPX, CDP #### [address] [address] Manager Helpdesk: Michael Chen MD C-Reactive Proteinon 024 CRP [Mass/Vol] 31.7 mg/L High 0.0-5.0 [facility] Comment on above: Performed By: #### C MPX, CDP #### [address] [address] Manager Helpdesk: Michael Chen MD C3on 01-22-2024 C3 111 mg/dL Normal 90-180 [facility] Comment on above: Performed By: #### C MPX, CDP #### [address] [address] Manager Helpdesk: Michael Chen MD C4on 01-22-2024 C4 21 mg/dL Normal 10-40 [facility] Comment on above: Performed By: #### C MPX, CDP #### [address] [address] Manager Helpdesk: Mcihael Chen MD CBC with Diffon 01-22-2024 Abs. Basophil 0.00 k/uL Normal 0.00-0.20 [facility] Comment on above: Performed By: #### C DP, BMPX #### [address] [address] Manager Helpdesk: Michael Chen MD Abs.Imm.Granulocyte 0.00 k/uL Normal 0.00-0.30 [facility] Comment on above: Performed By: #### C DP, BMPX #### [place] [address] Manager Helpdesk: Michael Chen MD Abs.Neutrophil (Seg) 6.12 k/uL Normal 1.50-8.10 [facility] Comment on above: Performed By: #### C DP, BMPX #### [place] [address] Manager Helpdesk: Michael Chen MD Basophils/100 WBC (Bld) 0 % Normal 0-2 [facility] Comment on above: Performed By: #### C DP, BMPX #### [place] [address] Manager Helpdesk: Michael Chen MD Eosinophils (Bld) [#/Vol] 0.07 10*3/uL Normal 0.00-0.44 [facility] Comment on above: Performed By: #### C DP, BMPX #### [place] [address] Manager Helpdesk: Michael Chen MD Eosinophils/100 WBC (Bld) 1 % Normal 1-4 [facility] Comment on above: Performed By: #### C DP, BMPX #### [place] [address] Manager Helpdesk: Michael Chen MD Immature granulocytes/100 WBC (Bld) 0 % Normal 0 [facility] Comment on above: Performed By: #### C DP, BMPX #### [place] [address] Manager Helpdesk: Michael Chen MD Lymphocytes (Bld) [#/Vol] 0.58 10*3/uL Low 1.10-3.70 [facility] Comment on above: Performed By: #### C DP, BMPX #### [address] [address] Manager Helpdesk: Michael Chen MD Lymphocytes/100 WBC (Bld) 8 % Low 24-43 [facility] Comment on above: Performed By: #### C DP, BMPX #### [address] [address] Manager Helpdesk: Michael Chen MD Monocytes (Bld) [#/Vol] 0.43 10*3/uL Normal 0.10-1.20 [facility] Comment on above: Performed By: #### C DP, BMPX #### [address] [address] Manager Helpdesk: Michael Chen MD Monocytes/100 WBC (Bld) 6 % Normal 3-12 [facility] Comment on above: Performed By: #### C DP, BMPX #### [address] [address] Manager Helpdesk: Michael Chen MD Morphology Pedro (Bld) [Interp] Normal Normal [facility] Comment on above: Performed By: #### C DP, BMPX #### [address] [address] Manager Helpdesk: Michael Chen MD Neutrophil (Seg) 85 % High 36-65 [facility] Comment on above: Performed By: #### C DP, BMPX #### [address] [address] Manager Helpdesk: Michael Chen MD Erythrocyte distribution width (RBC) [Ratio] 13.6 % Normal 11.8-14.4 [facility] Comment on above: Performed By: #### C DP, BMPX #### [address] [address] Manager Helpdesk: Michael Chen MD Hematocrit (Bld) [Volume fraction] 30.3 % Low 36.3-47.1 [facility] Comment on above: Performed By: #### C DP, BMPX #### [place] [address] Manager Helpdesk: Michael Chen MD Hemoglobin (Bld) [Mass/Vol] 9.3 g/dL Low 11.9-15.1 [facility] Comment on above: Performed By: #### C DP, BMPX #### [place] [address] Manager Helpdesk: Michael Chen MD MCH (RBC) [Entitic mass] 30.8 pg Normal 25.2-33.5 [facility] Comment on above: Performed By: #### C DP, BMPX #### [place] [address] Manager Helpdesk: Michael Chen MD MCHC (RBC) [Mass/Vol] 30.7 g/dL Normal 28.4-34.8 [facility] Comment on above: Performed By: #### C DP, BMPX #### [place] [address] Manager Helpdesk: Michael Chen MD MCV (RBC) [Entitic vol] 100.3 fL Normal 82.6-102.9 [facility] Comment on above: Performed By: #### C DP, BMPX #### [place] [address] Manager Helpdesk: Michael Chen MD NRBC Automated 0.0 per 100 WBC Normal 0.0 [facility] Comment on above: Performed By: #### C DP, BMPX #### [address] [id number] Manager Helpdesk: Michael Chen MD Platelet mean volume (Bld) [Entitic vol] 9.6 fL Normal 8.1-13.5 [facility] Comment on above: Performed By: #### C DP, BMPX #### [facility] [employer] [facility] [place] [address] Manager Helpdesk: Michael Chen MD Platelets (Bld) [#/Vol] 329 10*3/uL Normal 138-453 [facility] Comment on above: Performed By: #### C DP, BMPX #### [facility] [employer] [facility] [place] [address] Manager Helpdesk: Michael Chen MD RBC (Bld) [#/Vol] 3.02 10*6/uL Low 3.95-5.11 [facility] Comment on above: Performed By: #### C DP, BMPX #### [address] [address] Manager Helpdesk: Michael Chen MD WBC (Bld) [#/Vol] 7.2 10*3/uL Normal 3.5-11.3 [facility] Comment on above: Performed By: #### C DP, BMPX #### [address] [address] Manager Helpdesk: Michael Chen MD CT CERVICAL SPINE WO [...] Anuj Paniagua MD 01/22/24 Final result Normal [facility] CT CHEST ABDOMEN PELVIS W CO [...] Anuj Paniagua MD 01/22/24 Final result Normal [facility] CT HEAD WO CONTRASTon 2023 CT [...] Anuj Paniagua MD 01/22/24 Final result Normal [facility] CT LUMBAR SPINE BONY RECONST RUCTIONon [...] Anuj Paniagua MD 01/22/24 Final result Normal [facility] CT THORACIC SPINE BONY RECON STRUCTIONon [...] Anuj Paniagua MD 01/22/24 Final result Normal [facility] CTA HEAD NECK W CONTRASTon 0 [...] Anuj Paniagua MD 01/22/24 Final result Normal [facility] Creatine Kinaseon 01-22-2024 CK [Catalytic activity/Vol] 38 U/L Normal 26-192 [facility] Comment on above: Performed By: #### C MPTERESA Mora #### [facility] [employer] [address] [place] [address] Manager Helpdesk: Michael Chen MD MRI BRAIN WO CONTRASTon [...] Shabbir Martin MD 01/22/24 Final result Normal [facility] MRI CERVICAL SPINE WO CONTRA STon [...] Kirby Adames MD 01/22/24 Final result Normal [facility] PTon 01-22-2024 INR Coag (PPP) [Relative time] 1.1 {INR} Normal [facility] Comment on above: Result Comment: Therapeutic Range: Moderate Anticoagulant Intensity: INR = 2.0-3.0 High Anticoagulant Intensity: INR = 2.5-3.5 Performed By: #### C MPX, CDP #### [facility] [address] [place] [phone] Manager Helpdesk: Michael Chen MD PT Coag (PPP) [Time] 14.2 s Normal 11.7-14.9 [facility] Comment on above: Performed By: #### C MPX, CDP #### [facility] [address] [place] [phone] Manager Helpdesk: Michael Chen MD RA Screenon 01-22-2024 RA Screen <10 Normal 0-13 [facility] Comment on above: Performed By: #### C MPX, CDP #### [facility] [address] [place] [phone] Manager Helpdesk: Michael Chen MD Sedimentation Rateon 024 Sedimentation Rate 11 mm/Hr Normal 0-30 [facility] Comment on above: Performed By: #### C MPX, CDP #### [facility] [address] [place] [phone] Manager Helpdesk: Michael Chen MD Type + Screenon 01-22-2024 Type + Screen Sample Expiration 01/25/2024,2359 Arm Band Number [id number] ABO/Rh(D) A POSITIVE Antibody Screen NEGATIVE Normal [facility] Comment on above: Performed By: #### T YS #### [employer] [address] [place] [address] Manager Helpdesk: Michael Chen MD Uric Acidon 01-22-2024 Urate [Mass/Vol] 9.6 mg/dL High 2.4-5.7 [facility] Comment on above: Performed By: #### C MPX, CDP #### [employer] [address] [place] [address] Manager Helpdesk: Michael Chen MD Vitamin D 25 OHon 01-22-2024 Vitamin D 25 [place] 30.3 ng/mL Normal 30.0-100.0 [facility] Comment on above: Result Comment: Reference Range: Vitamin D status Range Deficiency <20 ng/mL Mild Deficiency 20-30 ng/mL Sufficiency 30-100 ng/mL Toxicity >100 ng/mL Performed By: #### C MPX, CDP #### [facility] [address] [place] [phone] Manager Helpdesk: Michael Chen MD XR CHEST (SINGLE VIEW FRONTA L)on 01-22-2024 XR CHEST (SINGLE VIEW FRONTAL) EXAMINATION: ONE XRAY VIEW OF THE CHEST 01/22/2024 10:06 am COMPARISON: Chest radiograph 09/30/2023 HISTORY: ORDERING SYSTEM PROVIDED HISTORY: pre-op skin drier PROVIDED HISTORY: Pre-op imaging FINDINGS: Lines/tubes: Right [...] Migel Price MD 01/22/24 Final result Normal [facility] Office Visiton 12-21-2023 Follow-up visit [id number] Loren Moser A 1960 F Date Provider Department Center 12/21/2023 BENJIE LERMA [facility] Family History Family history unknown: Yes Level of Service:30236 CT OFFICE/OUTPATIENT ESTABLISHED MOD MDM 30 MIN Normal [facility] Orders Onlyon 12-21-2023 Orders Only [id number] Loren Moser A 1960 F Date Provider Department Center 12/21/2023 MIKAYLA BURGER [facility] Family History Family history unknown: Yes Normal [facility] Basic Metab w/rfx MGon 09-30 Anion gap [Moles/Vol] 8 mmol/L Low 9-16 [facility] Comment on above: Performed By: #### B MPX, CDP #### [facility] [address] [place] [address] Manager Helpdesk: Michael Chen MD Calcium [Mass/Vol] 8.1 mg/dL Low 8.6-10.4 [facility] Comment on above: Performed By: #### B MPX, CDP #### [facility] [address] [place] [address] Manager Helpdesk: Michael Chen MD Chloride [Moles/Vol] 101 mmol/L Normal 98-107 [facility] Comment on above: Performed By: #### B MPX, CDP #### [facility] [address] [place] [address] Manager Helpdesk: Michael Chen MD CO2 [Moles/Vol] 23 mmol/L Normal 20-31 [facility] Comment on above: Performed By: #### B MPX, CDP #### [facility] [address] [place] [address] Manager Helpdesk: Michael Chen MD Creatinine [Mass/Vol] 1.5 mg/dL High 0.50-0.90 [facility] Comment on above: Performed By: #### B MPX, CDP #### [facility] [employer] [address] [place] [phone] Manager Helpdesk: Michael Chen MD GFR/1.73 sq M.predicted among non-blacks MDRD (S/P/Bld) [Vol rate/Area] 39 mL/min/{1.73_m2} Low >60 [facility] Comment on above: Result Comment: These [...] Performed By: #### B MPX, CDP #### [address] [address] Manager Helpdesk: Michael Chen MD Glucose [Mass/Vol] 100 mg/dL High 74-99 [facility] Comment on above: Performed By: #### B MPX, CDP #### [address] [address] Manager Helpdesk: Michael Chen MD Potassium [Moles/Vol] 4.4 mmol/L Normal 3.7-5.3 [facility] Comment on above: Performed By: #### B MPX, CDP #### [facility] [employer] [address] [place] [phone] Manager Helpdesk: Michael Chen MD Sodium [Moles/Vol] 132 mmol/L Low 136-145 [facility] Comment on above: Performed By: #### B MPX, CDP #### [facility] [address] [place] [phone] Manager Helpdesk: Michael Chen MD Urea nitrogen [Mass/Vol] 56 mg/dL High 8-23 [facility] Comment on above: Performed By: #### B MPX, CDP #### [facility] [employer] [address] [place] [address] Manager Helpdesk: Michael Chen MD CBC with Diffon 10-01-2023 Abs. Basophil 0.03 k/uL Normal 0.00-0.20 [facility] Comment on above: Performed By: #### B MPX, CDP #### [facility] [employer] [address] [place] [phone] Manager Helpdesk: Michael Chen MD Abs.Imm.Granulocyte 0.05 k/uL Normal 0.00-0.30 [facility] Comment on above: Performed By: #### B MPX, CDP #### [address] [address] Manager Helpdesk: Michael Chen MD Abs.Neutrophil (Seg) 6.55 k/uL Normal 1.50-8.10 [facility] Comment on above: Performed By: #### B MPX, CDP #### [facility] [employer] [address] [place] [phone] Manager Helpdesk: Michael Chen MD Basophils/100 WBC (Bld) 0 % Normal 0-2 [facility] Comment on above: Performed By: #### B MPX, CDP #### [facility] [employer] [address] [place] [address] Manager Helpdesk: Michael Chen MD Eosinophils (Bld) [#/Vol] 0.10 10*3/uL Normal 0.00-0.44 [facility] Comment on above: Performed By: #### B MPX, CDP #### [facility] [employer] [address] [place] [phone] Manager Helpdesk: Michael Chen MD Eosinophils/100 WBC (Bld) 1 % Normal 1-4 [facility] Comment on above: Performed By: #### B MPX, CDP #### [facility] [employer] [address] [place] [address] Manager Helpdesk: Michael Chen MD Erythrocyte distribution width (RBC) [Ratio] 13.6 % Normal 11.8-14.4 [facility] Comment on above: Performed By: #### B MPX, CDP #### [facility] [employer] [address] [place] [phone] Manager Helpdesk: Michael Chen MD Hematocrit (Bld) [Volume fraction] 27.9 % Low 36.3-47.1 [facility] Comment on above: Performed By: #### B MPX, CDP #### [facility] [employer] [address] [place] [phone] Manager Helpdesk: Michael Chen MD Hemoglobin (Bld) [Mass/Vol] 8.4 g/dL Low 11.9-15.1 [facility] Comment on above: Performed By: #### B MPX, CDP #### [facility] [employer] [address] [place] [address] Manager Helpdesk: Michael Chen MD Immature granulocytes/100 WBC (Bld) 1 % High 0 [facility] Comment on above: Performed By: #### B MPX, CDP #### [facility] [employer] [address] [place] [address] Manager Helpdesk: Michael Chen MD Lymphocytes (Bld) [#/Vol] 0.94 10*3/uL Low 1.10-3.70 [facility] Comment on above: Performed By: #### B MPX, CDP #### [facility] [employer] [address] [place] [address] Manager Helpdesk: Michael Chen MD Lymphocytes/100 WBC (Bld) 11 % Low 24-43 [facility] Comment on above: Performed By: #### B MPX, CDP #### [facility] [employer] [address] [place] [address] Manager Helpdesk: Michael Chen MD MCH (RBC) [Entitic mass] 30.5 pg Normal 25.2-33.5 [facility] Comment on above: Performed By: #### B MPX, CDP #### [address] [address] Manager Helpdesk: Michael Chen MD MCHC (RBC) [Mass/Vol] 30.1 g/dL Normal 28.4-34.8 [facility] Comment on above: Performed By: #### B MPX, CDP #### [address] [address] Manager Helpdesk: Michael Chen MD MCV (RBC) [Entitic vol] 101.5 fL Normal 82.6-102.9 [facility] Comment on above: Performed By: #### B MPX, CDP #### [address] [address] Manager Helpdesk: Michael Chen MD Monocytes (Bld) [#/Vol] 0.54 10*3/uL Normal 0.10-1.20 [facility] Comment on above: Performed By: #### B MPX, CDP #### [address] [address] Manager Helpdesk: Michael Chen MD Monocytes/100 WBC (Bld) 7 % Normal 3-12 [facility] Comment on above: Performed By: #### B MPX, CDP #### [address] [address] Manager Helpdesk: Michael Chen MD Neutrophil (Seg) 80 % High 36-65 [facility] Comment on above: Performed By: #### B MPX, CDP #### [address] [address] Manager Helpdesk: Michael Chen MD NRBC Automated 0.0 per 100 WBC Normal 0.0 [facility] Comment on above: Performed By: #### B MPX, CDP #### [facility] [employer] [address] [place] [phone] Manager Helpdesk: Michael Chen MD Platelet mean volume (Bld) [Entitic vol] 8.9 fL Normal 8.1-13.5 [facility] Comment on above: Performed By: #### B MPX, CDP #### [address] [address] Manager Helpdesk: Michael Chen MD Platelets (Bld) [#/Vol] 281 10*3/uL Normal 138-453 [facility] Comment on above: Performed By: #### B MPX, CDP #### [address] [address] Manager Helpdesk: Michael Chen MD RBC (Bld) [#/Vol] 2.75 10*6/uL Low 3.95-5.11 [facility] Comment on above: Performed By: #### B MPX, CDP #### [address] [address] Manager Helpdesk: Michael Chen MD WBC (Bld) [#/Vol] 8.2 10*3/uL Normal 3.5-11.3 [facility] Comment on above: Performed By: #### B MPX, CDP #### [address] [address] Manager Helpdesk: Michael Chen MD Basic Metab w/rfx MGon 09-29 Anion gap [Moles/Vol] 12 mmol/L Normal 9-16 [facility] Comment on above: Performed By: #### B MPX, CDP #### [address] [address] Manager Helpdesk: Michael Chen MD Calcium [Mass/Vol] 8.2 mg/dL Low 8.6-10.4 [facility] Comment on above: Performed By: #### B MPX, CDP #### [facility] [address] [place] [address] Manager Helpdesk: Michael Chen MD Chloride [Moles/Vol] 103 mmol/L Normal 98-107 [facility] Comment on above: Performed By: #### B MPX, CDP #### [facility] [address] [place] [address] Manager Helpdesk: Michael Chen MD CO2 [Moles/Vol] 23 mmol/L Normal 20-31 [facility] Comment on above: Performed By: #### B MPX, CDP #### [facility] [address] [place] [phone] Manager Helpdesk: Michael Chen MD Creatinine [Mass/Vol] 1.6 mg/dL High 0.50-0.90 [facility] Comment on above: Performed By: #### B MPX, CDP #### [address] [address] Manager Helpdesk: Michael Chen MD GFR/1.73 sq M.predicted among non-blacks MDRD (S/P/Bld) [Vol rate/Area] 35 mL/min/{1.73_m2} Low >60 [facility] Comment on above: Result Comment: These [...] By: #### B MPX, CDP #### [facility] [address] [address] Manager Helpdesk: Michael Chen MD Glucose [Mass/Vol] 89 mg/dL Normal 74-99 [facility] Comment on above: Performed By: #### B MPX, CDP #### [facility] [address] [place] [address] Manager Helpdesk: Michael Chen MD Potassium [Moles/Vol] 4.6 mmol/L Normal 3.7-5.3 [facility] Comment on above: Result Comment: SPEC IMEN SLIGHTLY HEMOLYZED, RESULTS MAY BE ADVERSELY AFFECTED. Performed By: #### B MPX, CDP #### [facility] [employer] [address] [place] [phone] Manager Helpdesk: Michael Chen MD Sodium [Moles/Vol] 138 mmol/L Normal 136-145 [facility] Comment on above: Performed By: #### B MPX, CDP #### [facility] [employer] [address] [place] [phone] Manager Helpdesk: Michael Chen MD Urea nitrogen [Mass/Vol] 57 mg/dL High 8-23 [facility] Comment on above: Performed By: #### B MPX, CDP #### [facility] [address] [place] [phone] Manager Helpdesk: Michael Chen MD Brain Natri. Peptideon 09-29 Natriuretic peptide B (Bld) [Mass/Vol] 1428 pg/mL High 0-300 [facility] Comment on above: Result Comment: An a ge-independent cutoff point of 300 pg/ml has a 98% negative predictive value excluding acute heart failure. Performed By: #### B MPX, CDP #### [facility] [employer] [address] [place] [phone] Manager Helpdesk: Michael Chen MD Liver Profileon 09-30-2023 Albumin [Mass/Vol] 3.5 g/dL Normal 3.5-5.2 [facility] Comment on above: Performed By: #### B MPX, CDP #### [facility] [employer] [address] [place] [phone] Manager Helpdesk: Michael Chen MD Albumin/Glob Ratio 2.0 Normal 1.0-2.5 [facility] Comment on above: Performed By: #### B MPX, CDP #### [facility] [employer] [address] [place] [phone] Manager Helpdesk: Michael Chen MD Alkaline Phos 301 U/L High 35-104 [facility] Comment on above: Performed By: #### B MPX, CDP #### [facility] [employer] [address] [place] [phone] Manager Helpdesk: Michael Chen MD ALT [Catalytic activity/Vol] 17 U/L Normal 10-35 [facility] Comment on above: Performed By: #### B MPX, CDP #### [facility] [employer] [address] [place] [phone] Manager Helpdesk: Michael Chen MD AST [Catalytic activity/Vol] 33 U/L Normal 10-35 [facility] Comment on above: Result Comment: SPEC IMEN SLIGHTLY HEMOLYZED, RESULTS MAY BE ADVERSELY AFFECTED. Performed By: #### B MPX, CDP #### [facility] [employer] [address] [place] [address] Manager Helpdesk: Michael Chen MD Bilirubin [Mass/Vol] 0.2 mg/dL Normal 0.00-1.20 [facility] Comment on above: Performed By: #### B MPX, CDP #### [facility] [employer] [address] [place] [phone] Manager Helpdesk: Michael Chen MD Bilirubin, Indirect 0.1 mg/dL Normal 0.0-1.0 [facility] Comment on above: Performed By: #### B MPX, CDP #### [facility] [employer] [address] [place] [address] Manager Helpdesk: Michael Chen MD Bilirubin.indirect [Mass/Vol] mg/dL Normal 0.00-0.30 [facility] Comment on above: Performed By: #### B MPX, CDP #### [facility] [address] [place] [phone] Manager Helpdesk: Michael Chen MD Globulin (S) [Mass/Vol] 2.1 g/dL Normal [facility] Comment on above: Performed By: #### B MPX, CDP #### [address] [address] Manager Helpdesk: Michael Chen MD Protein [Mass/Vol] 5.6 g/dL Low 6.6-8.7 [facility] Comment on above: Performed By: #### B MPX, CDP #### [facility] [employer] [address] [place] [phone] Manager Helpdesk: Michael Chen MD Specimen Rejectionon 024 Reason for rejection Unable to perform testing: Specimen clotted. Normal [facility] Comment on above: Performed By: #### B MPX, CDP #### [facility] [employer] [address] [place] [phone] Manager Helpdesk: Michael Chen MD Source of sample .BLOOD Normal [facility] Comment on above: Performed By: #### B MPX, CDP #### [facility] [address] [place] [address] Manager Helpdesk: Michael Chen MD Test ordered CDP Normal [facility] Comment on above: Performed By: #### B MPX, CDP #### [facility] [address] [place] [phone] Manager Helpdesk: Michael Chen MD XR CERVICAL SPINE (2-3 [...] Carlos Peralta MD 09/30/23 Final result Normal [facility] XR CHEST PORTABLEon 09-30-19 24 XR [...] Carlos Peralta MD 09/30/23 Final result Normal [facility] Office Visiton 08-16-2023 Follow-up visit [id number] Loren Moser 1960 F Date Provider Department Center 08/16/2023 1596-MACIE GARCIA CARD [facility] Family History Family history unknown: Yes Level of Service:83624 CT OFFICE/OUTPATIENT ESTABLISHED MOD MDM 30 MIN Normal [facility] Documentationon 08-07-2023 Documentation [id number] Loren Moser 1960 F Date Provider Department Center 08/07/2023 [id number] [facility]IL [facility] Family History Family history unknown: Yes Reason for Visit and Comments: HF inpatient satisfaction survey sent. [Other] Normal [facility] 36on 08-04-2023 36 DC to home on 08/03/19 024 Spoke to pt on 08/04/2023 Med rec completed with pts Delio Pt will need to reschedule appt with cardiology, she will call [place] [facility] to reschedule and will try to get in next week Normal [facility] 30on 08-03-2023 30 Problem: Pain - [...] including repeat lab results as appropriate Normal [facility] BASIC METABOLIC PANELon 02-0 Anion gap [Moles/Vol] 14 mmol/L Normal 7-20 [facility] Comment on above: Performed By: #### L [id number] #### [facility] ([facility]) [address] [place] [address] Calcium [Mass/Vol] 8.6 mg/dL Normal 8.6-10.3 [facility] Comment on above: Performed By: #### L [id number] #### [facility] ([facility] [address] [place] [address] Chloride [Moles/Vol] 96 mmol/L Low 98-107 [facility] Comment on above: Performed By: #### L [id number] #### [facility] ([facility]) [address] [place] [address] CO2 [Moles/Vol] 30 mmol/L Normal 21-[address] [facility] Comment on above: Performed By: #### L [id number] #### [facility] ([facility] [address] [place] [address] Creatinine [Mass/Vol] 2.67 mg/dL High 0.60-1.20 [facility] Comment on above: Performed By: #### L [id number] #### [facility] ([facility] [address] [place] [address] GLOMERULAR FILTRATION RATE ML/MIN/1.73 SQ M.PREDICTED 19.7 mL/min/1.73m*2 Low >60.0 [facility] Comment on above: Result Comment: The [facility]???s estimated glomerular filtration rate (eGFR) will no [...] Performed By: #### L [id number] #### [facility] ([facility] [address] [place] [address] Glucose [Mass/Vol] 78 mg/dL Normal 70-100 [facility] Comment on above: Performed By: #### L [id number] #### [facility] ([facility] [address] [place] [address] Potassium [Moles/Vol] 3.9 mmol/L Normal 3.5-5.1 [facility] Comment on above: Performed By: #### L [id number] #### [facility] ([facility] [address] [place] [address] Sodium [Moles/Vol] 136 mmol/L Normal 136-145 [facility] Comment on above: Performed By: #### L [id number] #### [facility] ([facility] [address] [place] [address] Urea nitrogen [Mass/Vol] 94 mg/dL High 7-25 [facility] Comment on above: Performed By: #### L [id number] #### [facility] ([facility] [address] [place] [place] [address] UREA NITROGEN/CREATININE (MASS RATIO) IN SER/PLAS 35.2 Normal [facility] Comment on above: Performed By: #### L [id number] #### [facility] ([facility] [address] [facility] [address] CBC WITH AUTO DIFFERENTIALon 08-03-2023 Basophils (Bld) [#/Vol] 0.03 10*3/uL Normal 0.00-0.20 [facility] Comment on above: Performed By: #### L [id number] #### [facility] ([facility] [address] [place] [address] Basophils/100 WBC (Bld) 0.3 % Normal 0.0-1.0 [facility] Comment on above: Performed By: #### L [id number] #### [facility] ([facility] [address] [place] [address] Eosinophils (Bld) [#/Vol] 0.14 10*3/uL Normal 0.00-0.50 [facility] Comment on above: Performed By: #### L [id number] #### [facility] ([facility] [address] [place] [address] Eosinophils/100 WBC (Bld) 1.4 % Normal 0.0-6.0 [facility] Comment on above: Performed By: #### L [id number] #### [facility] ([facility] [address] [place] [address] Erythrocyte distribution width (RBC) [Ratio] 12.7 % Normal 11.5-15.0 [facility] Comment on above: Performed By: #### L [id number] #### [facility] ([facility]) [address] [place] [address] ERYTHROCYTE MEAN CORPUSCULAR HEMOGLOBIN CONCENTRATION (G/DL) BY AUTOMATED 31.6 g/dL Low 32.0-35.0 [facility] Comment on above: Performed By: #### L [id number] #### [facility] ([facility]) [address] [place] [address] Hematocrit (Bld) [Volume fraction] 29.7 % Low 36.0-48.0 [facility] Comment on above: Performed By: #### L [id number] #### [facility] ([facility]) [address] [place] [address] Hemoglobin (Bld) [Mass/Vol] 9.4 g/dL Low 12.0-15.0 [facility] Comment on above: Performed By: #### L [id number] #### [facility] ([facility]) [address] [facility] [place] [address] Immature granulocytes (Bld) [#/Vol] 0.06 10*3/uL Normal 0.00-0.20 [facility] Comment on above: Performed By: #### L [id number] #### [facility] ([facility]) [address] [place] [address] Immature granulocytes/100 WBC (Bld) 0.6 % Normal 0.0-1.0 [facility] Comment on above: Performed By: #### L [id number] #### [facility] ([facility]) [address] [place] [address] Lymphocytes (Bld) [#/Vol] 0.79 10*3/uL Low 1.20-4.00 [facility] Comment on above: Performed By: #### L [id number] #### [facility] ([facility]) [address] [place] [address] Lymphocytes/100 WBC (Bld) 8.0 % Low 20.0-45.0 [facility] Comment on above: Performed By: #### L [id number] #### [facility] ([facility]) [address] [place] [address] MCH (RBC) [Entitic mass] 31.4 pg Normal 27.0-33.0 [facility] Comment on above: Performed By: #### L [id number] #### [facility] [address] [place] [address] MCV (RBC) [Entitic vol] 99.3 fL High 82.0-98.0 [facility] Comment on above: Performed By: #### L [id number] #### [facility] ([facility] [address] [place] [address] Monocytes (Bld) [#/Vol] 0.46 10*3/uL Normal 0.10-1.00 [facility] Comment on above: Performed By: #### L [id number] #### [facility] ([facility] [address] [place] [address] Monocytes/100 WBC (Bld) 4.6 % Low 5.0-12.0 [facility] Comment on above: Performed By: #### L [id number] #### [facility] ([facility] [address] [place] [address] Neutrophils (Bld) [#/Vol] 8.42 10*3/uL High 1.60-7.60 [facility] Comment on above: Performed By: #### L [id number] #### [facility] ([facility]) [address] [place] [address] Neutrophils/100 WBC (Bld) 85.1 % High 40.0-72.0 [facility] Comment on above: Performed By: #### L [id number] #### [facility] [address] [place] [address] NRBC (PER 100 WBCS) BY AUTOMATED COUNT 0.0 % Normal 0 [facility] Comment on above: Performed By: #### L [id number] #### [facility] ([facility]) [address] [place] [address] PLATELETS (10*3/UL) IN BLOOD AUTOMATED COUNT 211 10*3/uL Normal 150-400 [facility] Comment on above: Performed By: #### L [id number] #### [facility] ([facility] [address] [place] [address] RBC (Bld) [#/Vol] 2.99 10*6/uL Low 3.80-5.00 [facility] Comment on above: Performed By: #### L [id number] #### [facility] ([facility] [address] [place] [address] WBC (Bld) [#/Vol] 9.90 10*3/uL Normal 4.00-10.60 [facility] Comment on above: Performed By: #### L [id number] #### [facility] ([facility] [address] [place] [address] 30on 08-02-2023 30 Daily Case Managemen t [...] Select all services needed for the patient Jail [facility] (30 day convalescent stay) Please indicate [...] OT? Answer: Discharge Planning 08/01/23 1007 Normal [facility] 30 Problem: Pain - Adul t Goal: [...] symptoms of volume excess or deficit Normal [facility] BASIC METABOLIC PANELon Anion gap [Moles/Vol] 10 mmol/L Normal 7-20 [facility] Comment on above: Performed By: #### L [id number] ####[facility] ([facility])[address] [place] [address] Calcium [Mass/Vol] 8.5 mg/dL Low 8.6-10.3 [facility] Comment on above: Performed By: #### L [id number] ####[facility] ([facility] [place] [address] Chloride [Moles/Vol] 96 mmol/L Low 98-107 [facility] Comment on above: Performed By: #### L [id number] ####[facility] ([facility] [place] [address] CO2 [Moles/Vol] 33 mmol/L High 21-[address] [facility] Comment on above: Performed By: #### L [id number] ####[facility] ([facility] [place] [address] Creatinine [Mass/Vol] 2.73 mg/dL High 0.60-1.20 [facility] Comment on above: Performed By: #### L [id number] ####[facility] ([facility] [place] [address] GLOMERULAR FILTRATION RATE ML/MIN/1.73 SQ M.PREDICTED 19.2 mL/min/1.73m*2 Low >60.0 [facility] Comment on above: Result Comment: The [facility]???s estimated glomerular filtration rate (eGFR) will no [...] individuals. Performed By: #### L [id number] ####[facility] [place] [address] Glucose [Mass/Vol] 114 mg/dL High 70-100 [facility] Comment on above: Performed By: #### L [id number] ####[facility] ([facility] [place] [address] Potassium [Moles/Vol] 3.7 mmol/L Normal 3.5-5.1 [facility] Comment on above: Performed By: #### L [id number] ####[facility] ([facility] [place] [address] Sodium [Moles/Vol] 135 mmol/L Low 136-145 [facility] Comment on above: Performed By: #### L [id number] ####[facility] ([facility] [place] [address] Urea nitrogen [Mass/Vol] 90 mg/dL High 7-25 [facility] Comment on above: Performed By: #### L [id number] ####[facility] ([facility] [place] [address] UREA NITROGEN/CREATININE (MASS RATIO) IN SER/PLAS 33.0 Normal [facility] Comment on above: Performed By: #### L [id number] ####[facility] ([facility] [place] [address] CBC WITH AUTO DIFFERENTIALon 08-02-2023 Basophils (Bld) [#/Vol] 0.03 10*3/uL Normal 0.00-0.20 [facility] Comment on above: Performed By: #### L [id number] #### [facility] ([facility] [address] [place] [address] Basophils/100 WBC (Bld) 0.4 % Normal 0.0-1.0 [facility] Comment on above: Performed By: #### L [id number] #### [facility] [address] [place] [address] Eosinophils (Bld) [#/Vol] 0.13 10*3/uL Normal 0.00-0.50 [facility] Comment on above: Performed By: #### L [id number] #### [facility] [address] [place] [address] Eosinophils/100 WBC (Bld) 1.7 % Normal 0.0-6.0 [facility] Comment on above: Performed By: #### L [id number] #### [facility] ([facility] [address] [place] [address] Erythrocyte distribution width (RBC) [Ratio] 12.9 % Normal 11.5-15.0 [facility] Comment on above: Performed By: #### L [id number] #### [facility] ([facility] [address] [place] [address] ERYTHROCYTE MEAN CORPUSCULAR HEMOGLOBIN CONCENTRATION (G/DL) BY AUTOMATED 31.1 g/dL Low 32.0-35.0 [facility] Comment on above: Performed By: #### L [id number] #### [facility] ([facility] [address] [place] [address] Hematocrit (Bld) [Volume fraction] 29.6 % Low 36.0-48.0 [facility] Comment on above: Performed By: #### L [id number] #### [facility] ([facility] [address] [place] [address] Hemoglobin (Bld) [Mass/Vol] 9.2 g/dL Low 12.0-15.0 [facility] Comment on above: Performed By: #### L [id number] #### [facility] ([facility] [address] [place] [address] Immature granulocytes (Bld) [#/Vol] 0.05 10*3/uL Normal 0.00-0.20 [facility] Comment on above: Performed By: #### L [id number] #### [facility] ([facility] [address] [place] [address] Immature granulocytes/100 WBC (Bld) 0.7 % Normal 0.0-1.0 [facility] Comment on above: Performed By: #### L [id number] #### [facility] [address] [place] [address] Lymphocytes (Bld) [#/Vol] 1.62 10*3/uL Normal 1.20-4.00 [facility] Comment on above: Performed By: #### L [id number] #### [facility] ([facility] [address] [place] [address] Lymphocytes/100 WBC (Bld) 21.7 % Normal 20.0-45.0 [facility] Comment on above: Performed By: #### L [id number] #### [facility] ([facility] [address] [place] [address] MCH (RBC) [Entitic mass] 30.9 pg Normal 27.0-33.0 [facility] Comment on above: Performed By: #### L [id number] #### [facility] ([facility] [address] [place] [address] MCV (RBC) [Entitic vol] 99.3 fL High 82.0-98.0 [facility] Comment on above: Performed By: #### L [id number] #### [facility] ([facility] [address] [place] [address] Monocytes (Bld) [#/Vol] 0.53 10*3/uL Normal 0.10-1.00 [facility] Comment on above: Performed By: #### L [id number] #### [facility] ([facility] [address] [place] [address] Monocytes/100 WBC (Bld) 7.1 % Normal 5.0-12.0 [facility] Comment on above: Performed By: #### L [id number] #### [facility] [address] [place] [address] Neutrophils (Bld) [#/Vol] 5.10 10*3/uL Normal 1.60-7.60 [facility] Comment on above: Performed By: #### L [id number] #### [facility] ([facility]) [address] [place] [address] Neutrophils/100 WBC (Bld) 68.4 % Normal 40.0-72.0 [facility] Comment on above: Performed By: #### L [id number] #### [facility] ([facility] [address] [place] [address] NRBC (PER 100 WBCS) BY AUTOMATED COUNT 0.0 % Normal 0 [facility] Comment on above: Performed By: #### L [id number] #### [facility] ([facility] [address] [place] [address] PLATELETS (10*3/UL) IN BLOOD AUTOMATED COUNT 249 10*3/uL Normal 150-400 [facility] Comment on above: Performed By: #### L [id number] #### [facility] ([facility] [address] [place] [address] RBC (Bld) [#/Vol] 2.98 10*6/uL Low 3.80-5.00 [facility] Comment on above: Performed By: #### L [id number] #### [facility] ([facility] [address] [place] [address] WBC (Bld) [#/Vol] 7.46 10*3/uL Normal 4.00-10.60 [facility] Comment on above: Performed By: #### L [id number] #### [facility] ([facility] [address] [place] [address] MAGNESIUMon 08-02-2023 Magnesium [Mass/Vol] 2.1 mg/dL Normal 1.9-2.7 [facility] Comment on above: Performed By: #### L [id number] ####[facility] ([facility] [place] [address] PHOSPHORUSon 08-02-2023 Magnesium [Mass/Vol] 5.3 mg/dL High 2.5-5.0 [facility] Comment on above: Performed By: #### L [id number] ####[facility] ([facility] [place] [address] BASIC METABOLIC PANELon Anion gap [Moles/Vol] 11 mmol/L Normal 7-20 [facility] Comment on above: Performed By: #### L [id number] ####[facility] ([facility])[address] [place] [address] Calcium [Mass/Vol] 8.9 mg/dL Normal 8.6-10.3 [facility] Comment on above: Performed By: #### L [id number] ####[facility] ([facility] [place] [address] Chloride [Moles/Vol] 98 mmol/L Normal 98-107 [facility] Comment on above: Performed By: #### L [id number] ####[facility] ([facility] [place] [address] CO2 [Moles/Vol] 32 mmol/L High 21-[address] [facility] Comment on above: Performed By: #### L [id number] ####[facility] ([facility] [place] [address] Creatinine [Mass/Vol] 2.68 mg/dL High 0.60-1.20 [facility] Comment on above: Performed By: #### L [id number] ####[facility] ([facility] [place] [address] GLOMERULAR FILTRATION RATE ML/MIN/1.73 SQ M.PREDICTED 19.6 mL/min/1.73m*2 Low >60.0 [facility] Comment on above: Result Comment: The [facility]???s estimated glomerular filtration rate (eGFR) will no [...] individuals. Performed By: #### L [id number] ####[facility] ([facility] [place] [address] Glucose [Mass/Vol] 71 mg/dL Normal 70-100 [facility] Comment on above: Performed By: #### L [id number] ####[facility] ([facility] [place] [address] Potassium [Moles/Vol] 4.1 mmol/L Normal 3.5-5.1 [facility] Comment on above: Performed By: #### L [id number] ####[facility] ([facility] [place] [address] Sodium [Moles/Vol] 137 mmol/L Normal 136-145 [facility] Comment on above: Performed By: #### L [id number] ####[facility] ([facility] [place] [address] Urea nitrogen [Mass/Vol] 87 mg/dL High 7-25 [facility] Comment on above: Performed By: #### L [id number] ####[facility] ([facility] [place] [address] UREA NITROGEN/CREATININE (MASS RATIO) IN SER/PLAS 32.5 Normal [facility] Comment on above: Performed By: #### L [id number] ####[facility] ([facility] [place] [address] CBC WITH AUTO DIFFERENTIALon 08-01-2023 Basophils (Bld) [#/Vol] 0.03 10*3/uL Normal 0.00-0.20 [facility] Comment on above: Performed By: #### L [id number] ####[facility] ([facility] [place] [address] Basophils/100 WBC (Bld) 0.4 % Normal 0.0-1.0 [facility] Comment on above: Performed By: #### L [id number] ####[facility] ([facility] [place] [address] Eosinophils (Bld) [#/Vol] 0.11 10*3/uL Normal 0.00-0.50 [facility] Comment on above: Performed By: #### L [id number] ####[facility] ([facility])[address] [place] [address] Eosinophils/100 WBC (Bld) 1.5 % Normal 0.0-6.0 [facility] Comment on above: Performed By: #### L [id number] ####[facility] ([facility])[address] [place] [address] Erythrocyte distribution width (RBC) [Ratio] 12.8 % Normal 11.5-15.0 [facility] Comment on above: Performed By: #### L [id number] ####[facility] [place] [address] ERYTHROCYTE MEAN CORPUSCULAR HEMOGLOBIN CONCENTRATION (G/DL) BY AUTOMATED 31.1 g/dL Low 32.0-35.0 [facility] Comment on above: Performed By: #### L [id number] ####[facility] ([facility] [place] [address] Hematocrit (Bld) [Volume fraction] 31.8 % Low 36.0-48.0 [facility] Comment on above: Performed By: #### L [id number] ####[facility] ([facility])[address] [place] [address] Hemoglobin (Bld) [Mass/Vol] 9.9 g/dL Low 12.0-15.0 [facility] Comment on above: Performed By: #### L [id number] ####[facility] ([facility])[address] [place] [address] Immature granulocytes (Bld) [#/Vol] 0.05 10*3/uL Normal 0.00-0.20 [facility] Comment on above: Performed By: #### L [id number] ####[facility] ([facility])[address] [place] [address] Immature granulocytes/100 WBC (Bld) 0.7 % Normal 0.0-1.0 [facility] Comment on above: Performed By: #### L [id number] ####[facility] ([facility])[address] [place] [address] Lymphocytes (Bld) [#/Vol] 1.55 10*3/uL Normal 1.20-4.00 [facility] Comment on above: Performed By: #### L [id number] ####[facility] ([facility])[address] [place] [address] Lymphocytes/100 WBC (Bld) 21.0 % Normal 20.0-45.0 [facility] Comment on above: Performed By: #### L [id number] ####[facility] ([facility])[address] [place] [address] MCH (RBC) [Entitic mass] 30.7 pg Normal 27.0-33.0 [facility] Comment on above: Performed By: #### L [id number] ####[facility] ([facility])[address] [place] [address] MCV (RBC) [Entitic vol] 98.5 fL High 82.0-98.0 [facility] Comment on above: Performed By: #### L [id number] ####[facility] ([facility])[address] [place] [address] Monocytes (Bld) [#/Vol] 0.55 10*3/uL Normal 0.10-1.00 [facility] Comment on above: Performed By: #### L [id number] ####[facility] ([facility])[address] [place] [address] Monocytes/100 WBC (Bld) 7.5 % Normal 5.0-12.0 [facility] Comment on above: Performed By: #### L [id number] ####[facility] ([facility])[address] [place] [address] Neutrophils (Bld) [#/Vol] 5.08 10*3/uL Normal 1.60-7.60 [facility] Comment on above: Performed By: #### L [id number] ####[facility] ([facility])[address] [place] [address] Neutrophils/100 WBC (Bld) 68.9 % Normal 40.0-72.0 [facility] Comment on above: Performed By: #### L [id number] ####[facility] ([facility] [place] [address] NRBC (PER 100 WBCS) BY AUTOMATED COUNT 0.0 % Normal 0 [facility] Comment on above: Performed By: #### L [id number] ####[facility] ([facility] [place] [address] PLATELETS (10*3/UL) IN BLOOD AUTOMATED COUNT 270 10*3/uL Normal 150-400 [facility] Comment on above: Performed By: #### L [id number] ####[facility] ([facility] [place] [address] RBC (Bld) [#/Vol] 3.23 10*6/uL Low 3.80-5.00 [facility] Comment on above: Performed By: #### L [id number] ####[facility] ([facility] [place] [address] WBC (Bld) [#/Vol] 7.37 10*3/uL Normal 4.00-10.60 [facility] Comment on above: Performed By: #### L [id number] ####[facility] ([facility] [place] [address] MAGNESIUMon 08-01-2023 Magnesium [Mass/Vol] 1.8 mg/dL Low 1.9-2.7 [facility] Comment on above: Performed By: #### L [id number] ####[facility] ([facility] [place] [address] PHOSPHORUSon 08-01-2023 Magnesium [Mass/Vol] 5.4 mg/dL High 2.5-5.0 [facility] Comment on above: Performed By: #### L [id number] ####[facility] ([facility] [place] [address] TROPONIN Ion 08-01-2023 Troponin I.cardiac [Mass/Vol] 0.01 ng/mL Normal 0.00-0.04 [facility] Comment on above: Performed By: #### L [id number] ####[facility] ([facility] [place] [address] CBCon 07-31-2023 Erythrocyte distribution width (RBC) [Ratio] 13.0 % Normal 11.5-15.0 [facility] Comment on above: Performed By: #### L [id number] ####[facility] ([facility] [place] [address] ERYTHROCYTE MEAN CORPUSCULAR HEMOGLOBIN CONCENTRATION (G/DL) BY AUTOMATED 32.3 g/dL Normal 32.0-35.0 [facility] Comment on above: Performed By: #### L [id number] ####[facility] ([facility] [place] [address] Hematocrit (Bld) [Volume fraction] 28.2 % Low 36.0-48.0 [facility] Comment on above: Performed By: #### L [id number] ####[facility] ([facility] [place] [address] Hemoglobin (Bld) [Mass/Vol] 9.1 g/dL Low 12.0-15.0 [facility] Comment on above: Performed By: #### L [id number] ####[facility] ([facility] [place] [address] MCH (RBC) [Entitic mass] 31.4 pg Normal 27.0-33.0 [facility] Comment on above: Performed By: #### L [id number] ####[facility] ([facility] [place] [address] MCV (RBC) [Entitic vol] 97.2 fL Normal 82.0-98.0 [facility] Comment on above: Performed By: #### L [id number] ####[facility] ([facility] [place] [address] PLATELETS (10*3/UL) IN BLOOD AUTOMATED COUNT 247 10*3/uL Normal 150-400 [facility] Comment on above: Performed By: #### L [id number] ####[facility] ([facility] [place] [address] RBC (Bld) [#/Vol] 2.90 10*6/uL Low 3.80-5.00 [facility] Comment on above: Performed By: #### L [id number] ####[facility] ([facility] [place] [address] WBC (Bld) [#/Vol] 6.08 10*3/uL Normal 4.00-10.60 [facility] Comment on above: Performed By: #### L [id number] ####[facility] ([facility] [place] [address] COMPREHENSIVE METABOLIC PANE Sameer 07-31-2023 Albumin [Mass/Vol] 3.2 g/dL Low 3.5-5.7 [facility] Comment on above: Performed By: #### L [id number] #### [facility] ([facility] [address] [place] [address] ALP [Catalytic activity/Vol] 156 U/L High 34-104 [facility] Comment on above: Performed By: #### L [id number] #### [facility] ([facility] [address] [place] [address] ALT [Catalytic activity/Vol] 13 U/L Normal 7-52 [facility] Comment on above: Performed By: #### L [id number] #### [facility] ([facility] [address] [place] [address] Anion gap [Moles/Vol] 11 mmol/L Normal 7-20 [facility] Comment on above: Performed By: #### L [id number] #### [facility] ([facility] [address] [place] [address] AST [Catalytic activity/Vol] 16 U/L Normal 13-39 [facility] Comment on above: Performed By: #### L [id number] #### [facility] ([facility] [address] [place] [address] Bilirubin [Mass/Vol] 0.2 mg/dL Low 0.3-1.0 [facility] Comment on above: Performed By: #### L [id number] #### [facility] ([facility] [address] [place] [address] Calcium [Mass/Vol] 8.7 mg/dL Normal 8.6-10.3 [facility] Comment on above: Performed By: #### L [id number] #### [facility] ([facility] [address] [place] [address] Chloride [Moles/Vol] 101 mmol/L Normal 98-107 [facility] Comment on above: Performed By: #### L [id number] #### [facility] ([facility] [address] [place] [address] CO2 [Moles/Vol] 29 mmol/L Normal 21-[address] [facility] Comment on above: Performed By: #### L [id number] #### [facility] ([facility] [address] [place] [address] Creatinine [Mass/Vol] 2.51 mg/dL High 0.60-1.20 [facility] Comment on above: Performed By: #### L [id number] #### [facility] ([facility] [address] [place] [address] GLOMERULAR FILTRATION RATE ML/MIN/1.73 SQ M.PREDICTED 21.2 mL/min/1.73m*2 Low >60.0 [facility] Comment on above: Result Comment: The [facility]???s estimated glomerular filtration rate (eGFR) will no [...] group of individuals. Performed By: #### L [id number] #### [facility] ([facility] [address] [place] [address] Glucose [Mass/Vol] 86 mg/dL Normal 70-100 [facility] Comment on above: Performed By: #### L [id number] #### [facility] ([facility] [address] [place] [address] Potassium [Moles/Vol] 3.9 mmol/L Normal 3.5-5.1 [facility] Comment on above: Performed By: #### L [id number] #### [facility] ([facility] [address] [place] [address] Protein [Mass/Vol] 5.5 g/dL Low 6.0-8.3 [facility] Comment on above: Performed By: #### L [id number] #### [facility] ([facility] [address] [place] [address] Sodium [Moles/Vol] 137 mmol/L Normal 136-145 [facility] Comment on above: Performed By: #### L [id number] #### [facility] ([facility] [address] [place] [address] Urea nitrogen [Mass/Vol] 88 mg/dL High 7-25 [facility] Comment on above: Performed By: #### L [id number] #### [facility] ([facility] [address] [place] [address] UREA NITROGEN/CREATININE (MASS RATIO) IN SER/PLAS 35.1 Normal [facility] Comment on above: Performed By: #### L [id number] #### [facility] ([facility] [address] [place] [address] HEPATITIS B CORE ANTIBODY, T Jameson 02-05-2024 HEPATITIS B VIRUS CORE AB (PRESENCE) IN SER/PLAS BY IMM Non-Reactive Normal Nonreactive [facility] Comment on above: Performed By: #### L [id number] ####[facility] ([facility] [place] [address] HEPATITIS B SURFACE ANTIBODY QUANTon 07-31-2023 HEPATITIS B VIRUS SURFACE AB (MIU/ML) IN SERUM 1.84 mIU/mL Normal [facility] Comment on above: Result Comment: INTE RPRETATION: NONREACTIVE<8.00 mIU/mL INDETERMINATE8.00 - 12.00 mIU/mL REACTIVE>12 mIU/mL Performed By: #### L [id number] #### [facility] ([facility] [address] [place] [address] HEPATITIS B SURFACE ANTIGENo n 07-31-2023 HEPATITIS B VIRUS SURFACE AG PRESENCE IN SERUM Non-Reactive Normal Nonreactive [facility] Comment on above: Performed By: #### L [id number] #### [facility] ([facility] [address] [place] [address] HEPATITIS C ANTIBODYon 07-31 HEPATITIS C VIRUS AB PRESENCE IN SERUM Non-Reactive Normal Nonreactive [facility] Comment on above: Performed By: #### L [id number] #### [facility] ([facility] [address] [place] [address] MAGNESIUMon 07-31-2023 Magnesium [Mass/Vol] 1.6 mg/dL Low 1.9-2.7 [facility] Comment on above: Performed By: #### L [id number] ####[facility] ([facility] [place] [address] PROTEIN ELECTROPHORESIS, URI NE, 24 HOURon 07-31-2023 Protein (U) [Mass/Vol] 10.8 mg/dL Normal Un [facility] Comment on above: Result Comment: Ther e are no established reference values for random urine specimens. Performed By: #### L [id number] ####[facility] ([facility] [place] [address] UPEP INTERPRETATION Please see attached report. Normal [facility] Comment on above: Performed By: #### L [id number] ####[facility] [place] [address] BASIC METABOLIC PANELon 02-0 Anion gap [Moles/Vol] 12 mmol/L Normal 7-20 [facility] Comment on above: Performed By: #### L [id number] #### [facility] ([facility] [address] [place] [address] Calcium [Mass/Vol] 8.4 mg/dL Low 8.6-10.3 [facility] Comment on above: Performed By: #### L [id number] #### [facility] ([facility] [address] [place] [address] Chloride [Moles/Vol] 103 mmol/L Normal 98-107 [facility] Comment on above: Performed By: #### L [id number] #### [facility] ([facility] [address] [place] [address] CO2 [Moles/Vol] 25 mmol/L Normal 21-[address] [facility] Comment on above: Performed By: #### L [id number] #### [facility] ([facility] [address] [place] [address] Creatinine [Mass/Vol] 2.95 mg/dL High 0.60-1.20 [facility] Comment on above: Performed By: #### L [id number] #### [facility] ([facility] [address] [place] [address] GLOMERULAR FILTRATION RATE ML/MIN/1.73 SQ M.PREDICTED 17.5 mL/min/1.73m*2 Low >60.0 [facility] Comment on above: Result Comment: The [facility]???s estimated glomerular filtration rate (eGFR) will no [...] group of individuals. Performed By: #### L [id number] #### [facility] ([facility] [address] [place] [address] Glucose [Mass/Vol] 84 mg/dL Normal 70-100 [facility] Comment on above: Performed By: #### L [id number] #### [facility] ([facility] [address] [place] [address] Potassium [Moles/Vol] 4.2 mmol/L Normal 3.5-5.1 [facility] Comment on above: Performed By: #### L [id number] #### [facility] ([facility] [address] [place] [address] Sodium [Moles/Vol] 136 mmol/L Normal 136-145 [facility] Comment on above: Performed By: #### L [id number] #### [facility] ([facility] [address] [place] [address] Urea nitrogen [Mass/Vol] 96 mg/dL High 7-25 [facility] Comment on above: Performed By: #### L [id number] #### [facility] ([facility] [address] [place] [address] UREA NITROGEN/CREATININE (MASS RATIO) IN SER/PLAS 32.5 Normal [facility] Comment on above: Performed By: #### L [id number] #### [facility] ([facility] [address] [place] [address] CBCon 07-30-2023 Erythrocyte distribution width (RBC) [Ratio] 13.2 % Normal 11.5-15.0 [facility] Comment on above: Performed By: #### L [id number] #### [facility] ([facility] [address] [place] [address] ERYTHROCYTE MEAN CORPUSCULAR HEMOGLOBIN CONCENTRATION (G/DL) BY AUTOMATED 32.0 g/dL Normal 32.0-35.0 [facility] Comment on above: Performed By: #### L [id number] #### [facility] [address] [place] [address] Hematocrit (Bld) [Volume fraction] 28.1 % Low 36.0-48.0 [facility] Comment on above: Performed By: #### L [id number] #### [facility] ([facility] [address] [place] [address] Hemoglobin (Bld) [Mass/Vol] 9.0 g/dL Low 12.0-15.0 [facility] Comment on above: Performed By: #### L [id number] #### [facility] [address] [place] [address] MCH (RBC) [Entitic mass] 31.3 pg Normal 27.0-33.0 [facility] Comment on above: Performed By: #### L [id number] #### [facility] ([facility] [address] [place] [address] MCV (RBC) [Entitic vol] 97.6 fL Normal 82.0-98.0 [facility] Comment on above: Performed By: #### L [id number] #### [facility] [address] [place] [address] PLATELETS (10*3/UL) IN BLOOD AUTOMATED COUNT 245 10*3/uL Normal 150-400 [facility] Comment on above: Performed By: #### L [id number] #### [facility] [address] [place] [address] RBC (Bld) [#/Vol] 2.88 10*6/uL Low 3.80-5.00 [facility] Comment on above: Performed By: #### L [id number] #### [facility] [address] [place] [address] WBC (Bld) [#/Vol] 5.95 10*3/uL Normal 4.00-10.60 [facility] Comment on above: Performed By: #### L [id number] #### [facility] ([facility] [address] [place] [address] ALBUMINon 07-29-2023 Albumin [Mass/Vol] 3.3 g/dL Low 3.5-5.7 [facility] Comment on above: Performed By: #### L [id number] ####[facility] ([facility] [place] [address] Performed By: #### L [id number] #### [facility] ([facility] [address] [place] [address] BASIC METABOLIC PANELon Anion gap [Moles/Vol] 14 mmol/L Normal 7-20 [facility] Comment on above: Performed By: #### L [id number] #### [facility] ([facility] [address] [place] [address] Calcium [Mass/Vol] 8.0 mg/dL Low 8.6-10.3 [facility] Comment on above: Performed By: #### L [id number] #### [facility] ([facility] [address] [place] [address] Chloride [Moles/Vol] 104 mmol/L Normal 98-107 [facility] Comment on above: Performed By: #### L [id number] #### [facility] ([facility] [address] [place] [address] CO2 [Moles/Vol] 21 mmol/L Normal 21-[address] [facility] Comment on above: Performed By: #### L [id number] #### [facility] [address] [place] [address] Creatinine [Mass/Vol] 3.42 mg/dL High 0.60-1.20 [facility] Comment on above: Performed By: #### L [id number] #### [facility] ([facility] [address] [place] [address] GLOMERULAR FILTRATION RATE ML/MIN/1.73 SQ M.PREDICTED 14.7 mL/min/1.73m*2 Low >60.0 [facility] Comment on above: Result Comment: The [facility]???s estimated glomerular filtration rate (eGFR) will no [...] Performed By: #### L [id number] #### [facility] ([facility] [address] [place] [address] Glucose [Mass/Vol] 75 mg/dL Normal 70-100 [facility] Comment on above: Performed By: #### L [id number] #### [facility] ([facility] [address] [facility] [place] [address] Potassium [Moles/Vol] 5.1 mmol/L Normal 3.5-5.1 [facility] Comment on above: Performed By: #### L [id number] #### [facility] ([facility] [address] [place] [address] Sodium [Moles/Vol] 134 mmol/L Low 136-145 [facility] Comment on above: Performed By: #### L [id number] #### [facility] [address] [facility] [place] [address] Urea nitrogen [Mass/Vol] 104 mg/dL High 7-25 [facility] Comment on above: Performed By: #### L [id number] #### [facility] ([facility] [address] [facility] [place] [address] UREA NITROGEN/CREATININE (MASS RATIO) IN SER/PLAS 30.4 Normal [facility] Comment on above: Performed By: #### L [id number] #### [facility] ([facility] [address] [place] [address] Anion gap [Moles/Vol] 14 mmol/L Normal 7-20 [facility] Comment on above: Performed By: #### L [id number] #### [facility] ([facility] [address] [place] [address] Calcium [Mass/Vol] 7.5 mg/dL Low 8.6-10.3 [facility] Comment on above: Performed By: #### L [id number] #### [facility] ([facility] [address] [place] [address] Chloride [Moles/Vol] 104 mmol/L Normal 98-107 [facility] Comment on above: Performed By: #### L [id number] #### [facility] ([facility] [address] [place] [address] CO2 [Moles/Vol] 21 mmol/L Normal 21-[address] [facility] Comment on above: Performed By: #### L [id number] #### [facility] ([facility] [address] [place] [address] Creatinine [Mass/Vol] 3.52 mg/dL High 0.60-1.20 [facility] Comment on above: Performed By: #### L [id number] #### [facility] ([facility] [address] [place] [address] GLOMERULAR FILTRATION RATE ML/MIN/1.73 SQ M.PREDICTED 14.2 mL/min/1.73m*2 Low >60.0 [facility] Comment on above: Result Comment: [facility]???s estimated glomerular filtration rate (eGFR) will no [...] Performed By: #### L [id number] #### [facility] ([facility] [address] [place] [address] Glucose [Mass/Vol] 82 mg/dL Normal 70-100 [facility] Comment on above: Performed By: #### L [id number] #### [facility] ([facility] [address] [place] [address] Potassium [Moles/Vol] 4.9 mmol/L Normal 3.5-5.1 [facility] Comment on above: Performed By: #### L [id number] #### [facility] ([facility] [address] [place] [address] Sodium [Moles/Vol] 134 mmol/L Low 136-145 [facility] Comment on above: Performed By: #### L [id number] #### [facility] ([facility] [address] [place] [address] Urea nitrogen [Mass/Vol] 105 mg/dL High 7-25 [facility] Comment on above: Performed By: #### L [id number] #### [facility] ([facility] [address] [place] [address] UREA NITROGEN/CREATININE (MASS RATIO) IN SER/PLAS 29.8 Normal [facility] Comment on above: Performed By: #### L [id number] #### [facility] ([facility] [address] [place] [address] CBC WITH AUTO DIFFERENTIALon 07-29-2023 Basophils (Bld) [#/Vol] 0.02 10*3/uL Normal 0.00-0.20 [facility] Comment on above: Performed By: #### L [id number] #### [facility] ([facility] [address] [place] [address] Basophils/100 WBC (Bld) 0.3 % Normal 0.0-1.0 [facility] Comment on above: Performed By: #### L [id number] #### [facility] ([facility] [address] [place] [address] Eosinophils (Bld) [#/Vol] 0.12 10*3/uL Normal 0.00-0.50 [facility] Comment on above: Performed By: #### L [id number] #### [facility] ([facility] [address] [place] [address] Eosinophils/100 WBC (Bld) 1.9 % Normal 0.0-6.0 [facility] Comment on above: Performed By: #### L [id number] #### [facility] ([facility] [address] [place] [address] Erythrocyte distribution width (RBC) [Ratio] 13.5 % Normal 11.5-15.0 [facility] Comment on above: Performed By: #### L [id number] #### [facility] ([facility] [address] [place] [address] ERYTHROCYTE MEAN CORPUSCULAR HEMOGLOBIN CONCENTRATION (G/DL) BY AUTOMATED 31.5 g/dL Low 32.0-35.0 [facility] Comment on above: Performed By: #### L [id number] #### [facility] ([facility] [address] [place] [address] Hematocrit (Bld) [Volume fraction] 27.6 % Low 36.0-48.0 [facility] Comment on above: Performed By: #### L [id number] #### [facility] ([facility] [address] [place] [address] Hemoglobin (Bld) [Mass/Vol] 8.7 g/dL Low 12.0-15.0 [facility] Comment on above: Performed By: #### L [id number] #### [facility] [address] [place] [address] Immature granulocytes (Bld) [#/Vol] 0.06 10*3/uL Normal 0.00-0.20 [facility] Comment on above: Performed By: #### L [id number] #### [facility] ([facility] [address] [facility] [place] [address] Immature granulocytes/100 WBC (Bld) 1.0 % Normal 0.0-1.0 [facility] Comment on above: Performed By: #### L [id number] #### [facility] ([facility] [address] [place] [address] Lymphocytes (Bld) [#/Vol] 1.28 10*3/uL Normal 1.20-4.00 [facility] Comment on above: Performed By: #### L [id number] #### [facility] ([facility] [address] [place] [address] Lymphocytes/100 WBC (Bld) 20.4 % Normal 20.0-45.0 [facility] Comment on above: Performed By: #### L [id number] #### [facility] ([facility] [address] [place] [address] MCH (RBC) [Entitic mass] 31.3 pg Normal 27.0-33.0 [facility] Comment on above: Performed By: #### L [id number] #### [facility] ([facility] [address] [facility] [place] [address] MCV (RBC) [Entitic vol] 99.3 fL High 82.0-98.0 [facility] Comment on above: Performed By: #### L [id number] #### [facility] ([facility] [address] [place] [address] Monocytes (Bld) [#/Vol] 0.54 10*3/uL Normal 0.10-1.00 [facility] Comment on above: Performed By: #### L [id number] #### [facility] [address] [place] [address] Monocytes/100 WBC (Bld) 8.6 % Normal 5.0-12.0 [facility] Comment on above: Performed By: #### L [id number] #### [facility] ([facility] [address] [place] [address] Neutrophils (Bld) [#/Vol] 4.24 10*3/uL Normal 1.60-7.60 [facility] Comment on above: Performed By: #### L [id number] #### [facility] ([facility] [address] [place] [address] Neutrophils/100 WBC (Bld) 67.8 % Normal 40.0-72.0 [facility] Comment on above: Performed By: #### L [id number] #### [facility] ([facility] [address] [place] [address] NRBC (PER 100 WBCS) BY AUTOMATED COUNT 0.0 % Normal 0 [facility] Comment on above: Performed By: #### L [id number] #### [facility] ([facility] [address] [place] [address] PLATELETS (10*3/UL) IN BLOOD AUTOMATED COUNT 268 10*3/uL Normal 150-400 [facility] Comment on above: Performed By: #### L [id number] #### [facility] ([facility] [address] [place] [address] RBC (Bld) [#/Vol] 2.78 10*6/uL Low 3.80-5.00 [facility] Comment on above: Performed By: #### L [id number] #### [facility] ([facility] [address] [place] [address] WBC (Bld) [#/Vol] 6.26 10*3/uL Normal 4.00-10.60 [facility] Comment on above: Performed By: #### L [id number] #### [facility] ([facility] [address] [place] [address] CONSULTon 07-29-2023 CONSULT ----- ----- Attestation signed by Rinku Tan MD at 07/29/2023 8:52 PM I personally saw and examined the patient on the same date of service as resident, Dr. Villavicencio. I discussed the findings and therapeutic plan with the resident and agree with the documentation. Pt had tecent admission to local hospital in [place] for Renetat and hypervolemia, her s.cr was >4 on 07/28/23, we discussed potential need to start [employer] given hypervolemia and uremic symptoms (N/v, [...] gastric bypass surgery who initially presented to [facility] with concerns for worsening lower extremity edema, after gaining 50 pounds within past week. Patient was evaluated by PCP who increased Bumex dose from 1 mg TID to 3 mg TID but patient had no improvement in symptoms. On presentation to [place], patient's creatinine was 4.55 (baseline 1.8-2), phosphorus 11.2, potassium 5.7, magnesium 1.8, hemoglobin 9.2 and BUN 122. Patient was initiated on Bumex drip but developed hypotension and was changed to IV pushes. Patient was subsequently transferred to [facility] Upon assessment at [facility], patient has downtrend in Cr to 3.64, [...] (L) 07/29 (more content not included)... Normal [facility] CONSULT ----- ----- Attestation signed by Seun Martinez MD at 07/29/2023 3:45 PM I personally saw and examined the patient on the same date of service as resident/fellow Dr Lowery. I discussed the findings and therapeutic plan with the resident/fellow Dr Lowery. I agree with the documentation, except for any edits/updates below. Teaching Physician's Revisions: Seun Martinez MD, MPH, [facility], [facility], [facility] Interventional Cardiology Pager Email: [email or web address] Cardiology Consult Note Reason for Consult: Bilaterally worsening lower extremity edema with orthopnea, concerning for heart failure exacerbation. HPI: Mabel Moser is a 63 y.o. female with PMH of alpha-1 antitrypsin carrier, HFpEF, CKD 3A, HTN, GERD, hypothyroidism, CVA, seizures, DVT (on Eliquis at home), morbid obesity s/p gastric bypass surgery who initially presented to [facility] with concerns for bilateral worsening lower extremity [...] duplex ultrasound. She was then transferred to [facility]. At [facility], her creatinine did improved slightly to 3.64, hemoglobin 8.5, troponin 0.01, BNP 265. She was initiated on IV Lasix 80 mg 3 times daily. Patient tells me that she did have a TTE performed at [facility] 2 months back but there [...] in the past she was admitted to [facility] in 2018 with fluid overload and responded [...] unknown: Yes (more content not included)... Normal [facility] CREATININE, URINE, RANDOMon 07-29-2023 Creatinine (U) [Mass/Vol] 17.0 mg/dL Low 26-299 [facility] Comment on above: Performed By: #### L [id number] #### [facility] ([facility] [address] [place] [address] HEMOGLOBIN A1Con 07-29-2023 Glucose [Mass/Vol] 82 mg/dL Normal [facility] Comment on above: Performed By: #### L [id number] ####[facility] ([facility] [place] [address] HbA1c (Bld) [Mass fraction] 4.5 % Normal 4.0-6.0 [facility] Comment on above: Performed By: #### L [id number] ####[facility] ([facility] [place] [address] HEPATIC FUNCTION PANELon ALP [Catalytic activity/Vol] 150 U/L High 34-104 [facility] Comment on above: Performed By: #### L [id number] #### [facility] ([facility] [address] [place] [address] ALT [Catalytic activity/Vol] 19 U/L Normal 7-52 [facility] Comment on above: Performed By: #### L [id number] #### [facility] ([facility] [address] [place] [address] AST [Catalytic activity/Vol] 24 U/L Normal 13-39 [facility] Comment on above: Performed By: #### L [id number] #### [facility] [address] [place] [address] Bilirubin [Mass/Vol] 0.3 mg/dL Normal 0.3-1.0 [facility] Comment on above: Performed By: #### L [id number] #### [facility] ([facility] [address] [place] [address] Magnesium [Mass/Vol] 0.1 mg/dL Normal 0-0.2 [facility] Comment on above: Performed By: #### L [id number] #### [facility] [address] [place] [address] Protein [Mass/Vol] 5.6 g/dL Low 6.0-8.3 [facility] Comment on above: Performed By: #### L [id number] #### [facility] ([facility] [address] [place] [address] LIPID PANELon 07-29-2023 CHOL/HDL 2.0 mg/dL Normal [facility] Comment on above: Performed By: #### L [id number] #### [facility] [address] [place] [address] Cholesterol [Mass/Vol] 155 mg/dL Normal 120-200 [facility] Comment on above: Performed By: #### L [id number] #### [facility] [address] [place] [address] Magnesium [Mass/Vol] 46 mg/dL Normal 40-149 [facility] Comment on above: Result Comment: TRIG LYCERIDE REFERENCE RANGE: 20 YEARS AND OLDER CARDIOVASCULAR RISK LESS THAN 150 mg/dL LOW RISK 150 TO 199 mg/dL BORDERLINE RISK 200 mg/dL AND GREATER HIGH RISK Performed By: #### L [id number] #### [facility] ([facility] [address] [place] [address] Magnesium [Mass/Vol] 67 mg/dL Normal 0-160 [facility] Comment on above: Performed By: #### L [id number] #### [facility] ([facility] [address] [place] [address] Magnesium [Mass/Vol] 79 mg/dL Normal 23-92 [facility] Comment on above: Performed By: #### L [id number] #### [facility] ([facility] [address] [place] [address] NON HDL CHOL. (LDL+VLDL) 76 Normal [facility] Comment on above: Performed By: #### L [id number] #### [facility] ([facility] [address] [place] [address] TOTAL VLDL-C 9 mg/dL Normal 0-40 [facility] Comment on above: Performed By: #### L [id number] #### [facility] ([facility] [address] [place] [address] MAGNESIUMon 07-29-2023 Magnesium [Mass/Vol] 2.0 mg/dL Normal 1.9-2.7 [facility] Comment on above: Performed By: #### L [id number] #### [facility] ([facility] [address] [place] [address] PROTIME-INRon 07-29-2023 INR IN PPP BY COAGULATION ASSAY 1.15 High 0.90-1.10 [facility] Comment on above: Result Comment: ACCC P [...] RANGE. CHEST 1995;[id number]. Performed By: #### L [id number] #### [facility] ([facility] [address] [place] [address] PROTHROMBIN TIME (PT) IN PPP BY COAGULATION ASSAY 14.8 Seconds Normal 12.3-14.8 [facility] Comment on above: Performed By: #### L [id number] #### [facility] ([facility] [address] [place] [address] TSH3 REFLEX TO FT4on 07-29- 024 THYROTROPIN (MIU/L) IN SER/PLAS BY DETECTION LIMIT <= 0.05 MIU/L 1.50 mIU/L Normal 0.34-5.60 [facility] Comment on above: Performed By: #### L [id number] ####[facility] ([facility] [place] [address] B-TYPE NATRIURETIC PEPTIDEon 07-28-2023 Natriuretic peptide B (Bld) [Mass/Vol] 265 pg/mL High 0-100 [facility] Comment on above: Performed By: #### L [id number] #### [facility] ([facility] [address] [place] [address] BASIC METABOLIC PANELon Anion gap [Moles/Vol] 15 mmol/L Normal 7-20 [facility] Comment on above: Performed By: #### L [id number] ####[facility] ([facility] [place] [address] Calcium [Mass/Vol] 7.3 mg/dL Low 8.6-10.3 [facility] Comment on above: Performed By: #### L [id number] ####[facility] ([facility] [place] [address] Chloride [Moles/Vol] 105 mmol/L Normal 98-107 [facility] Comment on above: Performed By: #### L [id number] ####[facility] ([facility] [place] [address] CO2 [Moles/Vol] 20 mmol/L Low 21-[address] [facility] Comment on above: Performed By: #### L [id number] ####[facility] ([facility] [place] [address] Creatinine [Mass/Vol] 3.64 mg/dL High 0.60-1.20 [facility] Comment on above: Performed By: #### L [id number] ####[facility] ([facility] [place] [address] GLOMERULAR FILTRATION RATE ML/MIN/1.73 SQ M.PREDICTED 13.6 mL/min/1.73m*2 Low >60.0 [facility] Comment on above: Result Comment: The [facility]???s estimated glomerular filtration rate (eGFR) will no [...] individuals. Performed By: #### L [id number] ####[facility] ([facility] [place] [address] Glucose [Mass/Vol] 80 mg/dL Normal 70-100 [facility] Comment on above: Performed By: #### L [id number] ####[facility] ([facility] [place] [address] Potassium [Moles/Vol] 5.7 mmol/L High 3.5-5.1 [facility] Comment on above: Performed By: #### L [id number] ####[facility] ([facility])[address] [place] [address] Sodium [Moles/Vol] 134 mmol/L Low 136-145 [facility] Comment on above: Performed By: #### L [id number] ####[facility] ([facility] [place] [address] Urea nitrogen [Mass/Vol] 109 mg/dL High 7-25 [facility] Comment on above: Performed By: #### L [id number] ####[facility] ([facility] [place] [address] UREA NITROGEN/CREATININE (MASS RATIO) IN SER/PLAS 29.9 Normal [facility] Comment on above: Performed By: #### L [id number] ####[facility] ([facility] [place] [address] CBC WITH AUTO DIFFERENTIALon 07-28-2023 Basophils (Bld) [#/Vol] 0.02 10*3/uL Normal 0.00-0.20 [facility] Comment on above: Performed By: #### L [id number] #### [facility] ([facility] [address] [place] [address] Basophils/100 WBC (Bld) 0.3 % Normal 0.0-1.0 [facility] Comment on above: Performed By: #### L [id number] #### [facility] ([facility]) [address] [place] [address] Eosinophils (Bld) [#/Vol] 0.07 10*3/uL Normal 0.00-0.50 [facility] Comment on above: Performed By: #### L [id number] #### [facility] ([facility]) [address] [place] [address] Eosinophils/100 WBC (Bld) 1.1 % Normal 0.0-6.0 [facility] Comment on above: Performed By: #### L [id number] #### [facility] ([facility] [address] [place] [address] Erythrocyte distribution width (RBC) [Ratio] 13.5 % Normal 11.5-15.0 [facility] Comment on above: Performed By: #### L [id number] #### [facility] ([facility] [address] [place] [address] ERYTHROCYTE MEAN CORPUSCULAR HEMOGLOBIN CONCENTRATION (G/DL) BY AUTOMATED 31.0 g/dL Low 32.0-35.0 [facility] Comment on above: Performed By: #### L [id number] #### [facility] ([facility] [address] [place] [address] Hematocrit (Bld) [Volume fraction] 27.4 % Low 36.0-48.0 [facility] Comment on above: Performed By: #### L [id number] #### [facility] ([facility] [address] [place] [address] Hemoglobin (Bld) [Mass/Vol] 8.5 g/dL Low 12.0-15.0 [facility] Comment on above: Performed By: #### L [id number] #### [facility] ([facility] [address] [place] [address] Immature granulocytes (Bld) [#/Vol] 0.05 10*3/uL Normal 0.00-0.20 [facility] Comment on above: Performed By: #### L [id number] #### [facility] ([facility] [address] [place] [address] Immature granulocytes/100 WBC (Bld) 0.8 % Normal 0.0-1.0 [facility] Comment on above: Performed By: #### L [id number] #### [facility] ([facility] [address] [place] [address] Lymphocytes (Bld) [#/Vol] 0.83 10*3/uL Low 1.20-4.00 [facility] Comment on above: Performed By: #### L [id number] #### [facility] [address] [place] [address] Lymphocytes/100 WBC (Bld) 13.0 % Low 20.0-45.0 [facility] Comment on above: Performed By: #### L [id number] #### [facility] ([facility] [address] [place] [address] MCH (RBC) [Entitic mass] 30.7 pg Normal 27.0-33.0 [facility] Comment on above: Performed By: #### L [id number] #### [facility] [address] [facility] [place] [address] MCV (RBC) [Entitic vol] 98.9 fL High 82.0-98.0 [facility] Comment on above: Performed By: #### L [id number] #### [facility] ([facility] [address] [place] [address] Monocytes (Bld) [#/Vol] 0.45 10*3/uL Normal 0.10-1.00 [facility] Comment on above: Performed By: #### L [id number] #### [facility] ([facility] [address] [place] [address] Monocytes/100 WBC (Bld) 7.0 % Normal 5.0-12.0 [facility] Comment on above: Performed By: #### L [id number] #### [facility] ([facility] [address] [place] [address] Neutrophils (Bld) [#/Vol] 4.97 10*3/uL Normal 1.60-7.60 [facility] Comment on above: Performed By: #### L [id number] #### [facility] ([facility] [address] [place] [address] Neutrophils/100 WBC (Bld) 77.8 % High 40.0-72.0 [facility] Comment on above: Performed By: #### L [id number] #### [facility] ([facility] [address] [place] [address] NRBC (PER 100 WBCS) BY AUTOMATED COUNT 0.0 % Normal 0 [facility] Comment on above: Performed By: #### L [id number] #### [facility] ([facility] [address] [place] [address] PLATELETS (10*3/UL) IN BLOOD AUTOMATED COUNT 245 10*3/uL Normal 150-400 [facility] Comment on above: Performed By: #### L [id number] #### [facility] ([facility] [address] [place] [address] RBC (Bld) [#/Vol] 2.77 10*6/uL Low 3.80-5.00 [facility] Comment on above: Performed By: #### L [id number] #### [facility] ([facility] [address] [place] [address] WBC (Bld) [#/Vol] 6.39 10*3/uL Normal 4.00-10.60 [facility] Comment on above: Performed By: #### L [id number] #### [facility] ([facility] [address] [place] [address] FERRITINon 07-28-2023 FERRITIN (NG/ML) IN SER/PLAS 53.0 ng/mL Normal 11.0-307.0 [facility] Comment on above: Performed By: #### L [id number] #### [facility] ([facility] [address] [place] [address] FOLATEon 07-28-2023 FOLATE (NG/ML) IN SER/PLAS 8.99 ng/mL Normal 6.6-1000 [facility] Comment on above: Performed By: #### L [id number] ####[facility] ([facility] [place] [address] IRON AND TIBCon 07-28-2023 IRON (UG/DL) IN SER/PLAS 53 ug/dL Normal 50-212 [facility] Comment on above: Performed By: #### L [id number] #### [facility] ([facility]) [address] [place] [address] IRON BINDING CAPACITY (UG/DL) IN SER/PLAS 285 ug/dL Normal 250-450 [facility] Comment on above: Performed By: #### L [id number] #### [facility] ([facility] [address] [place] [address] IRON BINDING CAPACITY.UNSATURATED (UG/DL) IN SER/PLAS 232.0 ug/dL Normal 155.0-355.0 [facility] Comment on above: Performed By: #### L [id number] #### [facility] ([facility]) [address] [facility] [place] [address] IRON SATURATION (%) IN SER/PLAS 19 % Low 20-50 [facility] Comment on above: Performed By: #### L [id number] #### [facility] ([facility]) [address] [place] [address] MAGNESIUMon 07-28-2023 Magnesium [Mass/Vol] 1.6 mg/dL Low 1.9-2.7 [facility] Comment on above: Performed By: #### L [id number] #### [facility] [address] [place] [address] RETICULOCYTE PANELon 024 HEMOGLOBIN (PG) IN RETICULOCYTES 33.8 pg Normal 28.0-36.0 [facility] Comment on above: Performed By: #### L [id number] ####[facility] ([facility])[address] [place] [address] IMMATURE RETICULOCYTE FRACTION (%) 8.5 % Normal 2-16 [facility] Comment on above: Performed By: #### L [id number] ####[facility] ([facility])[address] [place] [address] RETICULOCYTES (10*6/UL) IN BLOOD 0.0535 10*6/uL Normal 0.0250-0.100 0 [facility] Comment on above: Performed By: #### L [id number] ####[facility] ([facility])[address] [place] [address] Reticulocytes/100 RBC (Bld) 1.96 % High 0.50-1.80 [facility] Comment on above: Performed By: #### L [id number] ####[facility] ([facility] [place] [address] TROPONIN Ion 07-28-2023 Troponin I.cardiac [Mass/Vol] 0.01 ng/mL Normal 0.00-0.04 [facility] Comment on above: Performed By: #### L [id number] #### [facility] ([facility] [address] [place] [address] URINALYSIS MICROSCOPIC WITH REFLEX CULTUREon 07-28-2023 CASTS IN URINE Normal [facility] Comment on above: Performed By: #### L [id number] #### [facility] ([facility] [address] [place] [address] CRYSTALS IN URINE Normal [facility] Comment on above: Performed By: #### L [id number] #### [facility] ([facility] [address] [place] [address] MUCUS (#/HPF) IN URINE SEDIMENT Occasional Normal None Seen, Occasional, Few [facility] Comment on above: Performed By: #### L [id number] #### [facility] ([facility] [address] [place] [address] OTHER MICROSCOPIC ELEMENTS Normal [facility] Comment on above: Performed By: #### L [id number] #### [facility] ([facility] [address] [place] [address] RBC (#/HPF) IN URINE SEDIMENT None Seen Normal None Seen [facility] Comment on above: Performed By: #### L [id number] #### [facility] ([facility] [address] [place] [address] SQUAMOUS EPITHELIAL CELLS (#/HPF) IN URINE SEDIMENT Few Abnormal None Seen, Occasional [facility] Comment on above: Performed By: #### L [id number] #### [facility] ([facility] [address] [place] [address] WBC (LEUKOCYTE) (#/HPF) IN URINE SEDIMENT 0-2 Abnormal None Seen [facility] Comment on above: Performed By: #### L [id number] #### [facility] ([facility] [address] [place] [address] URINALYSIS WITH REFLEX CULTU REon 07-28-2023 BILIRUBIN, TOTAL PRESENCE IN URINE Negative Normal Negative [facility] Comment on above: Performed By: #### L [id number] ####[facility] ([facility] [place] [address] Clarity (U) Clear Normal Clear [facility] Comment on above: Performed By: #### L [id number] ####[facility] ([facility] [place] [address] Color (U) Straw Abnormal Yellow [facility] Comment on above: Performed By: #### L [id number] ####[facility] ([facility] [place] [address] Glucose (U) [Mass/Vol] Negative Normal Negative [facility] Comment on above: Performed By: #### L [id number] ####[facility] ([facility] [place] [address] HEMOGLOBIN PRESENCE IN URINE Small Abnormal Negative [facility] Comment on above: Performed By: #### L [id number] ####[facility] ([facility] [place] [address] Ketones Ql (U) Negative Normal Negative [facility] Comment on above: Performed By: #### L [id number] ####[facility] ([facility] [place] [address] LEUKOCYTE ESTERASE PRESENCE IN URINE BY TEST STRIP Negative Normal Negative [facility] Comment on above: Performed By: #### L [id number] ####[facility] ([facility] [place] [address] NITRITE PRESENCE IN URINE Negative Normal Negative [facility] Comment on above: Performed By: #### L [id number] ####[facility] ([facility])[address] [place] [address] pH (U) 5.0 [pH] Normal 5.0-8.0 [facility] Comment on above: Performed By: #### L [id number] ####[facility] ([facility])[address] [place] [address] Protein (U) [Mass/Vol] Negative Normal Negative [facility] Comment on above: Performed By: #### L [id number] ####[facility] [place] [address] Specific gravity (U) [Rel density] 1.011 Low 1.015-1.020 [facility] Comment on above: Performed By: #### L [id number] ####[facility] ([facility] [place] [address] VENOUS BLOOD GAS WITH IONIZE D CALCIUMon 07-28-2023 Base excess Calc (BldV) [Moles/Vol] -7.1000 mmol/L Normal [facility] Comment on above: Performed By: #### L [id number] #### [facility] ([facility] [address] [place] [address] CALCIUM IONIZED (MMOL/L) IN BLOOD 1.03 mmol/L Low 1.15-1.33 [facility] Comment on above: Performed By: #### L [id number] #### [facility] ([facility]) [address] [place] [address] CO2 (BldV) [Partial pressure] 41 mm[Hg] Normal 40-50 [facility] Comment on above: Performed By: #### L [id number] #### [facility] ([facility]) [address] [place] [address] HCO3 (Bld) [Moles/Vol] 19.3 mmol/L Normal [facility] Comment on above: Performed By: #### L [id number] #### [facility] ([facility]) [address] [place] [address] Oxygen (BldV) [Partial pressure] 42 mm[Hg] Normal 35-45 [facility] Comment on above: Performed By: #### L [id number] #### [facility] ([facility]) [address] [place] [address] OXYGEN SATURATION (%) IN VENOUS BLOOD 70.5 % Normal 65.0-75.0 [facility] Comment on above: Performed By: #### L [id number] #### [facility] ([facility]) [address] [place] [address] PH OF VENOUS BLOOD 7.28 Low 7.31-7.41 [facility] Comment on above: Performed By: #### L [id number] #### [facility] ([facility]) [address] [place] [address] Office Visiton 07-13-2023 Follow-up visit [id number] Loren Moser 1960 F Date Provider Department Center 07/13/2023 BENJIE LERMA YVONNE [place] Family History Family history unknown: Yes Level of Service:05185 CT OFFICE/OUTPATIENT ESTABLISHED LOW MDM 20 MIN Normal [facility] Absolute reticulocyte countO rdered By: [place] on 07-03-2023 Reticulocytes (Bld) [#/Vol] 0.039 10*6/uL 0.024-0.084 [facility] Basic Metabolic Panelon Creatinine Clr Calc Pharmacy 25.88 [facility] Comment on above: Performed By: #### V [id number], MG, BMP, JOSE, FE and TIBC, RETIC #### [facility] [address] [place], [place] [address] GFR/1.73 sq M.predicted MDRD (S/P/Bld) [Vol rate/Area] 23.348 mL/min/{1.73_m2} [facility] Comment on above: Performed By: #### V [id number], MG, BMP, JOSE, FE and TIBC, RETIC #### [address] Calcium [Mass/volume] in Ser um or PlasmaOrdered By: Jim Randhawa on 07-03-2023 Calcium [Mass/Vol] 8.3 mg/dL Low 8.6-10.3 [facility] Comment on above: Performed By: #### V [id number], MG, BMP, JOSE, FE and TIBC, RETIC #### [address] Carbon dioxide, total [Moles /volume] in Serum or PlasmaOrdered By: Jim Randhawa on 07-03-2023 CO2 [Moles/Vol] 20.4 mmol/L Low 21.0-31.0 [facility] Comment on above: Performed By: #### V [id number], MG, BMP, JOSE, FE and TIBC, RETIC #### [place] [address] [place] Chloride [Moles/volume] in S andrea or PlasmaOrdered By: Jim Randhawa on 07-03-2023 Chloride [Moles/Vol] 106 mmol/L Normal 98-107 [facility] Comment on above: Performed By: #### V [id number], MG, BMP, JOSE, FE and TIBC, RETIC #### [address] Creatinine [Mass/volume] in Serum or PlasmaOrdered By: Jim Randhawa on 07-03-2023 Creatinine [Mass/Vol] 2.32 mg/dL High 0.60-1.20 [facility] Comment on above: Performed By: #### V [id number], MG, BMP, JOSE, FE and TIBC, RETIC #### [address] ECH echo transthoracicon ECH echo transthoracic [facility] [place] [address] [place] [address] Echocardiogram Signed Patient: Mabel Moser MR#: [id number] : 1960 Acct:[id number] Age/Sex: 63 / F ADM Date: 06/29/23 Loc: 3T Room: [address] [place] [address] Type: DIS IN Attending Dr: Jim Randhawa DO Ordering Provider: Jim Randhawa DO Date of Service: 07/02/2301/16/859 ECH/ECH echo transthoracic: swelling Copies to: MD Jim Meyer DO Weight: 189 lb Performed By: Judah Pinto [facility] BSA: 1.9 m2 BP: 112/75 mmHg HR: [...] FS: 40.8 % Ao root area: 7.8 [id number] ap4: 8.4 cm TAPSE: 2.6 cm EDV(Teich): [...] By: Benjie Leach MD 07/03/[address] [facility] Ferritin [Mass/volume] in Se rum or PlasmaOrdered By: Los Grissom on 07-03-2023 Ferritin [Mass/Vol] 71.9 ng/mL Normal 11.0-306.8 [facility] Comment on above: Performed By: #### V [id number], MG, BMP, JOSE, FE and TIBC, RETIC #### [address] Folate [Mass/volume] in Seru m or PlasmaOrdered By: Los Grissom on 07-03-2023 Folate [Mass/Vol] 11.1 ng/mL >5.9 [facility] Comment on above: Folate reference ran ge: >5.9 ng/mlThe WHO technical consultation on folate and vitamin [id number] has determined that folate concentrations lessthan 4 ng/ml are considered deficient. Glucose [Mass/volume] in Ser um or PlasmaOrdered By: Jim Randhawa on 07-03-2023 Glucose [Mass/Vol] 99 mg/dL Normal 70-100 [facility] Comment on above: ADA recommended refe rence rangeRandom Glucose Reference Range is dependent on time and content of last meal. Glucose of more than 200 mg/dL in a nonstressed, ambulatory subject supports the diagnosis of Diabetes Mellitus. Result Comment: [place] Glucose Reference Range is dependent on time and content of last meal. Glucose of more than 200 mg/dL in a nonstressed, ambulatory subject supports the diagnosis of Diabetes Mellitus. ADA recommended reference range Performed By: #### V [id number], MG, BMP, JOSE, FE and TIBC, RETIC #### [facility] [address] Iron [Mass/volume] in Serum or PlasmaOrdered By: Los Grissom on 07-03-2023 Iron [Mass/Vol] 59 ug/dL Normal 50-212 [facility] Comment on above: Performed By: #### V [id number], MG, BMP, JOSE, FE and TIBC, RETIC #### [facility] [address] Iron and TIBC Profileon % Iron Saturation 22.8 % Normal 20-50 [facility] Comment on above: Performed By: #### V [id number], MG, BMP, JOSE, FE and TIBC, RETIC #### [address] Total Iron Binding Capacity 259 ug/dL Normal 255-450 [facility] Comment on above: Performed By: #### V [id number], MG, BMP, JOSE, FE and TIBC, RETIC #### [address] Iron binding capacity [Mass/ volume] in Serum or PlasmaOrdered By: Los Grissom on 07-03-2023 Iron binding capacity [Mass/Vol] 259 ug/dL 255-450 [facility] Iron saturation [Mass Fracti on] in Serum or PlasmaOrdered By: Los Grissom on 07-03-2023 Iron saturation [Mass fraction] 22.8 % 20-50 [facility] Magnesium [Mass/volume] in S andrea or PlasmaOrdered By: Jim Randhawa on 07-03-2023 Magnesium [Mass/Vol] 2.0 mg/dL Normal 1.9-2.7 [facility] Comment on above: Performed By: #### V [id number], MG, BMP, JOSE, FE and TIBC, RETIC #### [facility] [address] [place] [address] No Panel InformationOrdered By: Jim Randhawa on 07-03-2023 Estimated GFR (CKD-EPI) 23.348 mL/Min [facility] Creatinine Clearance (Chem 25.88 [facility] Potassium [Moles/volume] in Serum or PlasmaOrdered By: Jim Randhawa on 07-03-2023 Potassium [Moles/Vol] 3.9 mmol/L Normal 3.5-5.1 [facility] Comment on above: Performed By: #### V [id number], MG, BMP, JOSE, FE and TIBC, RETIC #### [facility] [address] Reticulocyte Counton 024 Reticulocyte Number 0.039 10*6/uL Normal 0.024-0.084 [facility] Comment on above: Result Comment: PERF ORMED BY: [place] [address] PATHOLOGIST CHIEF WHARFINGER TANNER GAVIN M.D. Performed By: #### V [id number], MG, BMP, JOSE, FE and TIBC, RETIC #### [address] Reticulocyte Percent 1.5 % Normal 0.5-1.5 [facility] Comment on above: Performed By: #### V [id number], MG, BMP, JOSE, FE and TIBC, RETIC #### [place] [address] [place] Reticulocytes/100 RBC Auto ( Bld)Ordered By: Los Grissom on 07-03-2023 Reticulocytes/100 RBC (Bld) 1.5 % 0.5-1.5 [facility] Serum or plasma anion gap de terminationOrdered By: Jim Randhawa on 07-03-2023 Anion gap [Moles/Vol] 11.5 mmol/L Normal 6.0-15.0 [facility] Comment on above: Performed By: #### V [id number], MG, BMP, JOSE, FE and TIBC, RETIC #### [place] [address] [place] Sodium [Moles/volume] in Ser um or PlasmaOrdered By: Jim Randhawa on 07-03-2023 Sodium [Moles/Vol] 134 mmol/L Low 136-145 [facility] Comment on above: Performed By: #### V [id number], MG, BMP, JOSE, FE and TIBC, RETIC #### [facility] [address] [place] [address] Transferrin [Mass/volume] in Serum or PlasmaOrdered By: Los Grissom on 07-03-2023 Transferrin [Mass/Vol] 185 mg/dL Low 203-362 [facility] Comment on above: Performed By: #### V [id number], MG, BMP, JOSE, FE and TIBC, RETIC #### [address] Urea nitrogen [Mass/volume] in Serum or PlasmaOrdered By: Jim Randhawa on 07-03-2023 Urea nitrogen [Mass/Vol] 95 mg/dL High 7-25 [facility] Comment on above: Performed By: #### V [id number], MG, BMP, JOSE, FE and TIBC, RETIC #### [facility] [address] [place] [address] Vit. B12/Folate Profileon Folate 11.1 ng/mL Normal >5.9 [facility] Comment on above: Result Comment: Sandra te reference range: >5.9 ng/ml The WHO technical consultation on folate and vitamin b12 deficiencies has determined that folate concentrations less than 4 ng/ml are considered deficient. PERFORMED BY: [place] [address] PATHOLOGIST CHIEF WHARFINGER TANNER GAVIN M.D. Performed By: #### V [id number], MG, BMP, JOSE, FE and TIBC, RETIC #### [facility] [address] [place] [address] Vitamin B12 ser/plasOrdered By: Los Grissom on 07-03-2023 Cobalamin (Vitamin B12) [Mass/Vol] 3564 pg/mL High 180-914 [facility] Comment on above: Performed By: #### V [id number], MG, BMP, JOSE, FE and TIBC, RETIC #### [facility] [address] [place] [address] Basic Metabolic Panelon Anion gap [Moles/Vol] 11.0 mmol/L Normal 6.0-15.0 [facility] Comment on above: Performed By: #### V [id number], MG, BMP, JOSE, FE and TIBC, RETIC #### [address] Calcium [Mass/Vol] 8.4 mg/dL Low 8.6-10.3 [facility] Comment on above: Performed By: #### V [id number], MG, BMP, JOSE, FE and TIBC, RETIC #### [address] Chloride [Moles/Vol] 104 mmol/L Normal 98-107 [facility] Comment on above: Performed By: #### V [id number], MG, BMP, JOSE, FE and TIBC, RETIC #### [address] CO2 [Moles/Vol] 20.2 mmol/L Low 21.0-31.0 [facility] Comment on above: Performed By: #### V [id number], MG, BMP, JOSE, FE and TIBC, RETIC #### [facility] [address] [place] [address] Creatinine [Mass/Vol] 2.31 mg/dL High 0.60-1.20 [facility] Comment on above: Performed By: #### V [id number], MG, BMP, JOSE, FE and TIBC, RETIC #### [facility] [address] [place] [address] Creatinine Clr Calc Pharmacy 26.22 [facility] Comment on above: Performed By: #### V [id number], MG, BMP, JOSE, FE and TIBC, RETIC #### [facility] [address] [place] [address] [place] GFR/1.73 sq M.predicted MDRD (S/P/Bld) [Vol rate/Area] 23.469 mL/min/{1.73_m2} Normal [facility] Comment on above: Performed By: #### V [id number], MG, BMP, JOSE, FE and TIBC, RETIC #### [facility] [address] Glucose [Mass/Vol] 89 mg/dL Normal 70-100 [facility] Comment on above: Result Comment: [facility] Glucose Reference Range is dependent on time and content of last meal. Glucose of more than 200 mg/dL in a nonstressed, ambulatory subject supports the diagnosis of Diabetes Mellitus. ADA recommended reference range Performed By: #### V [id number], MG, BMP, JOSE, FE and TIBC, RETIC #### [facility] [address] Potassium [Moles/Vol] 4.2 mmol/L Normal 3.5-5.1 [facility] Comment on above: Performed By: #### V [id number], MG, BMP, JOSE, FE and TIBC, RETIC #### [facility] [address] Sodium [Moles/Vol] 131 mmol/L Low 136-145 [facility] Comment on above: Performed By: #### V [id number], MG, BMP, JOSE, FE and TIBC, RETIC #### [facility] [address] [place] [address] Urea nitrogen [Mass/Vol] 100 mg/dL High 7-25 [facility] Comment on above: Performed By: #### V [id number], MG, BMP, JOSE, FE and TIBC, RETIC #### [facility] [address] Erythrocyte distribution wid th Auto (RBC) [Ratio]Ordered By: Jim Randhawa on 07-02-2023 Erythrocyte distribution width (RBC) [Ratio] 14.2 % 11.9-15.3 [facility] Hematocrit Auto (Bld) [Volum e fraction]Ordered By: Jim Randhawa on 07-02-2023 Hematocrit (Bld) [Volume fraction] 25.0 % 34.0-46.4 [facility] Hemoglobin [Mass/volume] in BloodOrdered By: Jim Randhawa on 07-02-2023 Hemoglobin (Bld) [Mass/Vol] 8.4 g/dL 11.8-15.4 [facility] Hemogram CBC Without Diffon 07-02-2023 Erythrocyte distribution width (RBC) [Ratio] 14.2 % Normal 11.9-15.3 [facility] Comment on above: Performed By: #### V [id number], MG, BMP, JOSE, FE and TIBC, RETIC #### [address] Hematocrit (Bld) [Volume fraction] 25.0 % Low 34.0-46.4 [facility] Comment on above: Performed By: #### V [id number], MG, BMP, JOSE, FE and TIBC, RETIC #### [address] Hemoglobin (Bld) [Mass/Vol] 8.4 g/dL Low 11.8-15.4 [facility] Comment on above: Performed By: #### V [id number], MG, BMP, JOSE, FE and TIBC, RETIC #### [address] MCH (RBC) [Entitic mass] 32.3 pg Normal 24.7-34.3 [facility] Comment on above: Performed By: #### V [id number], MG, BMP, JOSE, FE and TIBC, RETIC #### [address] MCV (RBC) [Entitic vol] 96.6 fL Normal 80-100 [facility] Comment on above: Performed By: #### V [id number], MG, BMP, JOSE, FE and TIBC, RETIC #### [address] Mean Corpuscular HGB Conc 33.4 g/dL Normal 32.0-35.0 [facility] Comment on above: Performed By: #### V [id number], MG, BMP, JOSE, FE and TIBC, RETIC #### [address] Platelet mean volume (Bld) [Entitic vol] 7.7 fL Normal 6.3-10.7 [facility] Comment on above: Result Comment: PERF ORMED BY: [place] [address] PATHOLOGIST CHIEF WHARFINGER TANNER GAVIN M.D. Performed By: #### V [id number], MG, BMP, JOSE, FE and TIBC, RETIC #### [address] Platelets (Bld) [#/Vol] 217 10*3/uL Normal 150-450 [facility] Comment on above: Performed By: #### V [id number], MG, BMP, JOSE, FE and TIBC, RETIC #### [address] RBC (Bld) [#/Vol] 2.59 10*6/uL Low 3.60-5.00 [facility] Comment on above: Performed By: #### V [id number], MG, BMP, JOSE, FE and TIBC, RETIC #### [address] WBC (Bld) [#/Vol] 6.1 10*3/uL Normal 3.8-11.6 [facility] Comment on above: Performed By: #### V [id number], MG, BMP, JOSE, FE and TIBC, RETIC #### [address] Leukocytes [#/volume] correc nicol for nucleated erythrocytes in Blood by Automated counOrdered By: Jim Randhawa on 07-02-2023 WBC corrected for nucl RBC Auto (Bld) [#/Vol] 6.1 10*3/uL 3.8-11.6 [facility] MCH Auto (RBC) [Entitic mass ]Ordered By: Jim Randhawa on 07-02-2023 MCH (RBC) [Entitic mass] 32.3 pg 24.7-34.3 [facility] MCHC Auto (RBC) [Mass/Vol]Or dered By: Jim Randhawa on 07-02-2023 MCHC (RBC) [Mass/Vol] 33.4 g/dL 32.0-35.0 [facility] MCV Auto (RBC) [Entitic vol] Ordered By: Jim Randhawa on 07-02-2023 MCV (RBC) [Entitic vol] 96.6 fL 80-100 [facility] Magnesiumon 07-02-2023 Magnesium [Mass/Vol] 2.1 mg/dL Normal 1.9-2.7 [facility] Comment on above: Result Comment: PERF ORMED BY: [facility] [address] [place] [address] PATHOLOGIST CHIEF WHARFINGER TANNER GAVIN M.D. Performed By: #### V [id number], MG, BMP, JOSE, FE and TIBC, RETIC #### [facility] [address] Platelet mean volume Auto (B ld) [Entitic vol]Ordered By: Jim Randhawa on 07-02-2023 Platelet mean volume (Bld) [Entitic vol] 7.7 fL 6.3-10.7 [facility] Platelets Auto (Bld) [#/Vol] Ordered By: Jim Randhawa on 07-02-2023 Platelets (Bld) [#/Vol] 217 10*3/uL 150-450 [facility] RBC Auto (Bld) [#/Vol]Ordere d By: Jim Randhawa on 07-02-2023 RBC (Bld) [#/Vol] 2.59 10*6/uL 3.60-5.00 [facility] Basic Metabolic Panelon Anion gap [Moles/Vol] 11.9 mmol/L Normal 6.0-15.0 [facility] Comment on above: Order Comment: LINE DRAW Performed By: #### V [id number], MG, BMP, JOSE, FE and TIBC, RETIC #### [facility] [address] [place] [address] Calcium [Mass/Vol] 8.9 mg/dL Normal 8.6-10.3 [facility] Comment on above: Order Comment: LINE DRAW Performed By: #### V [id number], MG, BMP, JOSE, FE and TIBC, RETIC #### [address] Chloride [Moles/Vol] 108 mmol/L High 98-107 [facility] Comment on above: Order Comment: LINE DRAW Performed By: #### V [id number], MG, BMP, JOSE, FE and TIBC, RETIC #### [address] CO2 [Moles/Vol] 18.5 mmol/L Low 21.0-31.0 [facility] Comment on above: Order Comment: LINE DRAW Performed By: #### V [id number], MG, BMP, JOSE, FE and TIBC, RETIC #### [address] Creatinine [Mass/Vol] 2.63 mg/dL Significan t change up 0.60-1.20 [facility] Comment on above: Order Comment: LINE DRAW Performed By: #### V [id number], MG, BMP, JOSE, FE and TIBC, RETIC #### [address] Creatinine Clr Calc Pharmacy 23.09 [facility] Comment on above: Order Comment: LINE DRAW Performed By: #### V [id number], MG, BMP, JOSE, FE and TIBC, RETIC #### [address] GFR/1.73 sq M.predicted MDRD (S/P/Bld) [Vol rate/Area] 20.085 mL/min/{1.73_m2} [facility] Comment on above: Order Comment: LINE DRAW Performed By: #### V [id number], MG, BMP, JOSE, FE and TIBC, RETIC #### [facility] [address] Glucose [Mass/Vol] 128 mg/dL High 70-100 [facility] Comment on above: Order Comment: LINE DRAW Result Comment: [place] Glucose Reference Range is dependent on time and content of last meal. Glucose of more than 200 mg/dL in a nonstressed, ambulatory subject supports the diagnosis of Diabetes Mellitus. ADA recommended reference range Performed By: #### V [id number], MG, BMP, JOSE, FE and TIBC, RETIC #### [facility] [address] Potassium [Moles/Vol] 4.4 mmol/L Normal 3.5-5.1 [facility] Comment on above: Order Comment: LINE DRAW Performed By: #### V [id number], MG, BMP, JOSE, FE and TIBC, RETIC #### [facility] [address] Sodium [Moles/Vol] 134 mmol/L Low 136-145 [facility] Comment on above: Order Comment: LINE DRAW Performed By: #### V [id number], MG, BMP, JOSE, FE and TIBC, RETIC #### [facility] [address] Urea nitrogen [Mass/Vol] 104 mg/dL High 7-25 [facility] Comment on above: Order Comment: LINE DRAW Performed By: #### V [id number], MG, BMP, JOSE, FE and TIBC, RETIC #### [facility] [address] Magnesiumon 07-01-2023 Magnesium [Mass/Vol] 2.3 mg/dL Normal 1.9-2.7 [facility] Comment on above: Order Comment: LINE DRAW Result Comment: PERF ORMED BY: [place] [address] PATHOLOGIST CHIEF WHARFINGER TANNER GAVIN M.D. Performed By: #### V [id number], MG, BMP, JOSE, FE and TIBC, RETIC #### [facility] [address] Basic Metabolic Panelon 0 Anion gap [Moles/Vol] 14.6 mmol/L Normal 6.0-15.0 [facility] Comment on above: Performed By: #### V [id number], MG, BMP, JOSE, FE and TIBC, RETIC #### [address] Calcium [Mass/Vol] 8.6 mg/dL Normal 8.6-10.3 [facility] Comment on above: Performed By: #### V [id number], MG, BMP, JOSE, FE and TIBC, RETIC #### [address] Chloride [Moles/Vol] 109 mmol/L High 98-107 [facility] Comment on above: Performed By: #### V [id number], MG, BMP, JOSE, FE and TIBC, RETIC #### [address] CO2 [Moles/Vol] 15.0 mmol/L Low 21.0-31.0 [facility] Comment on above: Performed By: #### V [id number], MG, BMP, JOSE, FE and TIBC, RETIC #### [facility] [address] [place] [address] Creatinine [Mass/Vol] 3.16 mg/dL High 0.60-1.20 [facility] Comment on above: Performed By: #### V [id number], MG, BMP, JOSE, FE and TIBC, RETIC #### [facility] [address] [place] [address] Creatinine Clr Calc Pharmacy 19.26 [facility] Comment on above: Performed By: #### V [id number], MG, BMP, JOSE, FE and TIBC, RETIC #### [facility] [address] [place] [address] [place] GFR/1.73 sq M.predicted MDRD (S/P/Bld) [Vol rate/Area] 16.114 mL/min/{1.73_m2} Normal [facility] Comment on above: Performed By: #### V [id number], MG, BMP, JOSE, FE and TIBC, RETIC #### [facility] [address] Glucose [Mass/Vol] 79 mg/dL Normal 70-100 [facility] Comment on above: Result Comment: [facility] Glucose Reference Range is dependent on time and content of last meal. Glucose of more than 200 mg/dL in a nonstressed, ambulatory subject supports the diagnosis of Diabetes Mellitus. ADA recommended reference range Performed By: #### V [id number], MG, BMP, JOSE, FE and TIBC, RETIC #### [address] Potassium [Moles/Vol] 4.6 mmol/L Normal 3.5-5.1 [facility] Comment on above: Performed By: #### V [id number], MG, BMP, JOSE, FE and TIBC, RETIC #### [address] Sodium [Moles/Vol] 134 mmol/L Low 136-145 [facility] Comment on above: Performed By: #### V [id number], MG, BMP, JOSE, FE and TIBC, RETIC #### [facility] [address] [place] [address] [place] Urea nitrogen [Mass/Vol] 117 mg/dL High 7-25 [facility] Comment on above: Performed By: #### V [id number], MG, BMP, JOSE, FE and TIBC, RETIC #### [address] Magnesiumon 06-30-2023 Magnesium [Mass/Vol] 2.5 mg/dL Normal 1.9-2.7 [facility] Comment on above: Result Comment: PERF ORMED BY: [place] [address] PATHOLOGIST CHIEF WHARFINGER TANNER GAVIN M.D. Performed By: #### V [id number], MG, BMP, JOSE, FE and TIBC, RETIC #### [facility] [address] [place] [id number] [facility] 36on 04-10-2023 36 Patient states she n eeds to cancel her surgery due to her son being on the transplant list, states she would like to reschedule. Normal [facility] Orders Onlyon 04-05-2023 Orders Only [id number] Loren Moser A 1960 F Date Provider Department Center 04/05/2023 [facility] Family History Family history unknown: Yes Normal [facility] Office Visiton 02-22-2023 Follow-up visit [id number] Loren Moser marii A 1960 Date Provider Department Center 02/22/2023 RHIANNON MED[facility] Family History Family history unknown: Yes Level of Service:89945 CT OFFICE/OUTPATIENT ESTABLISHED MOD MDM 30-39 MIN Normal [facility] Follow-Upon 02-16-2023 Follow-Up [id number] Loren Moser A 1960 Provider Department Center 02/16/2023 [facility] Family History Family history unknown: Yes Level of Service:60797 CT OFFICE/OUTPATIENT ESTABLISHED LOW MDM 20-29 MIN Reason for Visit and Comments: Pain [136] Normal [facility] 36on 02-08-2023 36 Called patient to in form her she needs the CT done before her follow up w/ francisco. The appt has been cancelled and needs rescheduled. Normal [facility] CBC AUTO DIFFon 11-22-2022 BASO # 0.0 103/ul Normal 0.0-0.1 [facility] Comment on above: Performed By: #### C BC ####[facility] [address] [place] [address]DrKianna Tripathi Basophils/100 WBC (Bld) 0.6 % Normal 0.2-2.0 [facility] Comment on above: Performed By: #### C BC ####[facility] [address] [place] [address]Dr. Airam Tripathi EO # 0.1 103/ul Normal 0.0-0.7 [facility] Comment on above: Performed By: #### C BC ####[facility] [address] [place] [address]Dr. Airam Tripathi Eosinophils/100 WBC (Bld) 1.7 % Normal 0.9-7.0 [facility] Comment on above: Performed By: #### C BC ####[facility] [address] [place], [place] [address]Dr. Selenaneil Tripathi Erythrocyte distribution width (RBC) [Ratio] 15.2 % Critically high 11.0-15.0 [facility] Comment on above: Performed By: #### C BC ####[facility] [address] [place], [place] [address]DrKianna Selenaneil Tripathi Hematocrit (Bld) [Volume fraction] 31.6 % Critically low 36.0-48.0 [facility] Comment on above: Performed By: #### C BC ####[facility] [address] [place], [place] [address]Dr. Airam Tripathi Hemoglobin (Bld) [Mass/Vol] 9.9 g/dL Critically low 12.0-16.0 [facility] Comment on above: Performed By: #### C BC ####[facility] [address] [place], [place] [address]Dr. Selenaneil Tripathi IG # 0.02 10e3/ul Normal 0.00-0.03 [facility] Comment on above: Performed By: #### C BC ####[facility] [address] [place], [place] [address]Dr. Selenaneil Tripathi IG % 0.4 % Normal 0.0-0.5 [facility] Comment on above: Performed By: #### C BC ####[facility] [address] [place], [place] [address]DrKianna Tripathi LYMPH # 0.8 103/ul Critically low 1.2-3.8 [facility] Comment on above: Performed By: #### C BC ####[facility] Ancltqsjum50[address] [place] [address]Dr. Airam Tripathi Lymphocytes/100 WBC (Bld) 16.9 % Critically low 20.5-60.0 [facility] Comment on above: Performed By: #### C BC ####[facility] Congxuuwxd1114 [place] [address]Dr. Airam Tripathi MANUAL DIFF REQ NO Normal [facility] Comment on above: Performed By: #### C BC ####[facility] Rrtsvpezud4926 [place] [address]Dr. Airam Tripathi MCH (RBC) [Entitic mass] 28.4 pg Normal 26.7-34.0 [facility] Comment on above: Performed By: #### C BC ####[facility] Usjoohpubr8[address] [place], [place] [address]Dr. Airam Tripathi MCHC (RBC) [Mass/Vol] 31.3 g/dL Normal 29.9-35.2 [facility] Comment on above: Performed By: #### C BC ####[facility] Yqoujsiqjx[address] [place], [place] [address]Dr. Airam Tripathi MCV (RBC) [Entitic vol] 90.8 fL Normal 81.0-99.0 [facility] Comment on above: Performed By: #### C BC ####[facility] Ddvriuivme[address] [place], [place] [address]Dr. Airam Tripathi MONO # 0.4 103/ul Normal 0.3-0.8 [facility] Comment on above: Performed By: #### C BC ####[facility] Ekrhrznlic12[address] [place], [place] [address]Dr. Airam Tripathi Monocytes/100 WBC (Bld) 8.9 % Normal 1.7-12.0 [facility] Comment on above: Performed By: #### C BC ####[facility] Tunrntdczz578[address] [place], [place] [address]DrKianna Tripathi NEUT # 3.4 103/ul Normal 1.4-6.5 [facility] Comment on above: Performed By: #### C BC ####[facility] Iwomkhufev1525 [place] [address]Dr. Airam Tripathi Neutrophils/100 WBC (Bld) 71.5 % Normal 43.0-75.0 [facility] Comment on above: Performed By: #### C BC ####[facility] Pvduabtfyp5409 [place] [address]Dr. Airam Tripathi Platelet mean volume (Bld) [Entitic vol] 9.4 fL Critically low 9.5-13.5 [facility] Comment on above: Performed By: #### C BC ####[facility] Vstgebrjub0604 [place] [address]Dr. Airam Tripathi PLT 302 103/ul Normal 150-450 [facility] Comment on above: Performed By: #### C BC ####[facility] Qmkymhzbbw1991 [place] [address]Dr. Airam Tripathi RBC 3.48 106/ul Critically low 4.20-5.40 [facility] Comment on above: Performed By: #### C BC ####[facility] Apscensuka4[address] [place], [place] [address]Dr. Airam Tripathi WBC 4.7 103/ul Normal 4.0-11.0 [facility] Comment on above: Performed By: #### C BC ####[facility] Veauasmzhf5202 [place] [address]DrKianna Tripathi PROF 14(COMP METB)on 023 Albumin [Mass/Vol] 3.4 g/dL Normal 3.4-5.0 [facility] Comment on above: Performed By: #### C MP ####[facility] Ibnskkkgmi065[address] [place], [place] [address]DrKianna Tripathi Albumin/Globulin [Mass ratio] 1.0 {ratio} Normal [facility] Comment on above: Performed By: #### C MP ####[facility] Emyqwwxerq3866 [place] [id number] Tripathi ALP [Catalytic activity/Vol] 123 U/L Critically high 46-116 [facility] Comment on above: Performed By: #### C MP ####[facility] Fgbstpmwni3353 [place] [id number]. Airam Tripathi ALT [Catalytic activity/Vol] 24 U/L Normal 14-59 [facility] Comment on above: Performed By: #### C MP ####[facility] Vpjhedakdx2675 [place] [id number]. Airam Tripathi Anion gap [Moles/Vol] 12.1 mmol/L Normal [facility] Comment on above: Performed By: #### C MP ####[facility] Oxtqqnzsyj0514 [place] [id number]. Airam Tripathi AST [Catalytic activity/Vol] 30 U/L Normal 15-37 [facility] Comment on above: Performed By: #### C MP ####[facility] Tnpjciodff9739 [place] [address]Dr. Airam Deuce Bilirubin [Mass/Vol] 0.4 mg/dL Normal 0.2-1.0 [facility] Comment on above: Performed By: #### C MP ####[facility] Wavhgwrzzv1621 [place] [phone]. Airam Deuce Calcium [Mass/Vol] 8.9 mg/dL Normal 8.5-10.1 [facility] Comment on above: Performed By: #### C MP ####[facility] Ixzuuefyms1475 [place] [phone]. Airam Deuce Chloride [Moles/Vol] 95 mmol/L Critically low 98-107 [facility] Comment on above: Performed By: #### C MP ####[facility] Kngpixeuhf4256 [place] [phone]. Airam Tripathi CO2 [Moles/Vol] 28.7 mmol/L Normal 21.0-32.0 [facility] Comment on above: Performed By: #### C MP ####[facility] Utcyredlik3661 [place] [phone]. Airam Deuce Creatinine [Mass/Vol] 1.25 mg/dL Critically high 0.55-1.02 [facility] Comment on above: Performed By: #### C MP ####[facility] Mgrwiznynf0946 [place] [phone]. Airam Tripathi EGFR-AF SLOVENIAN 53 mL/min/1.73m2 Critically low >=60 [facility] Comment on above: Performed By: #### C MP ####[facility] Gkkzhklyhb0779 [place] [phone]. Airam Tripathi EGFR-NON AF SLOVENIAN 44 mL/min/1.73m2 Critically low >=60 [facility] Comment on above: Performed By: #### C MP ####[facility] Txvglvzuxs3491 [place] [address]Dr. Airam Deuce Globulin (S) [Mass/Vol] 3.5 g/dL Normal [facility] Comment on above: Performed By: #### C MP ####[facility] Lvjimsdfto9131 [place] [address]Dr. Airam Deuce Glucose [Mass/Vol] 89 mg/dL Normal 74-106 [facility] Comment on above: Performed By: #### C MP ####[facility] Lpnjjxzrrk1042 [place] [address]Dr. Airam Deuce Potassium [Moles/Vol] 4.8 mmol/L Normal 3.5-5.1 [facility] Comment on above: Performed By: #### C MP ####[facility] Czwyzughtk6138 [place] [address]Dr. Airam Deuce Protein [Mass/Vol] 6.9 g/dL Normal 6.4-8.2 [facility] Comment on above: Performed By: #### C MP ####[facility] Faomeeakia4170 [place] [address]Dr. Airam Tripathi Sodium [Moles/Vol] 131 mmol/L Critically low 136-145 [facility] Comment on above: Performed By: #### C MP ####[facility] Ptacalgvwa5054 [place] [phone]. Selenaneil Deuce Urea nitrogen [Mass/Vol] 37.0 mg/dL Critically high 7.0-18.0 [facility] Comment on above: Performed By: #### C MP ####[facility] Muwtymcwqs96[address] [place], [place] [address]Dr. Airam Tripathi Urea nitrogen/Creatinine [Mass ratio] 29.6 mg/mg Normal [facility] Comment on above: Performed By: #### C MP ####[facility] Zoxbzptbxi4[address] [place], [place] [address]Dr. Airam Tripathi OSMOLALITYon 11-18-2022 Osmolality [Osmolality] 293 mosm/kg Normal 275-295 [facility] Comment on above: Performed By: #### O SMO ####[facility] Qwdayjygam7[address] [place], [place] [address]Dr. Airam Tripathi BNPon 11-16-2022 Natriuretic peptide B (Bld) [Mass/Vol] 1142.0 pg/mL Critically high <=900.0 [facility] Comment on above: Performed By: #### B INSTRUMENT MAKER AND REPAIRER ####[facility] Rltkdwttxf4[address] [place], [place] [address]Dr. Airam Tripathi CBC AUTO DIFFon 11-16-2022 BASO # 0.0 103/ul Normal 0.0-0.1 [facility] Comment on above: Performed By: #### C BC ####[facility] Hdrajqyrno9915[address] [place], [place] [address]Dr. Airam Deuce Basophils/100 WBC (Bld) 0.3 % Normal 0.2-2.0 [facility] Comment on above: Performed By: #### C BC ####[facility] Mnfkzlrvqt1967[address] [place], [place] [address]Dr. Airam Tripathi EO # 0.3 103/ul Normal 0.0-0.7 [facility] Comment on above: Performed By: #### C BC ####[facility] Ecdtaaanfy1374[address] [place], [place] [address]DrKianna Airam Deuce Eosinophils/100 WBC (Bld) 4.6 % Normal 0.9-7.0 [facility] Comment on above: Performed By: #### C BC ####[facility] Kzanzinuoo5432[address] [place], [place] [address]Dr. Airam Tripathi Erythrocyte distribution width (RBC) [Ratio] 16.1 % Critically high 11.0-15.0 [facility] Comment on above: Performed By: #### C BC ####[facility] Fcyphnpckz4650 [place] [address]Dr. Airam Tripathi Hematocrit (Bld) [Volume fraction] 28.0 % Critically low 36.0-48.0 [facility] Comment on above: Performed By: #### C BC ####[facility] Dkhbruifzo5750 [place] [address]Dr. Airam Tripathi Hemoglobin (Bld) [Mass/Vol] 8.9 g/dL Critically low 12.0-16.0 [facility] Comment on above: Performed By: #### C BC ####[facility] Hgbzyxmioe730[address] [place], [place] [address]Dr. Airam Deuce IG # 0.02 10e3/ul Normal 0.00-0.03 [facility] Comment on above: Performed By: #### C BC ####[facility] Xxtrcjensa2759[address] [place], [place] [address]Dr. Airam Tripathi IG % 0.3 % Normal 0.0-0.5 [facility] Comment on above: Performed By: #### C BC ####[facility] Lfmgzrzgec0744[address] [place], [place] [address]Dr. Airam Deuce LYMPH # 1.5 103/ul Normal 1.2-3.8 [facility] Comment on above: Performed By: #### C BC ####[facility] Whfbwmkyny7607[address] [place], [place] [address]Dr. Airam Deuce Lymphocytes/100 WBC (Bld) 24.2 % Normal 20.5-60.0 [facility] Comment on above: Performed By: #### C BC ####[facility] Umvdeddtsn4357[address] [place], [place] [address]Dr. Selenaneil Tripathi MANUAL DIFF REQ NO Normal [facility] Comment on above: Performed By: #### C BC ####[facility] Vrohxmyffq8275[address] [place], [place] [address]Dr. Airam Tripathi MCH (RBC) [Entitic mass] 29.3 pg Normal 26.7-34.0 [facility] Comment on above: Performed By: #### C BC ####[facility] Mwynffwujc2550 [place] [address]Dr. Airam Tripathi MCHC (RBC) [Mass/Vol] 31.8 g/dL Normal 29.9-35.2 [facility] Comment on above: Performed By: #### C BC ####[facility] Wcpgynwfub2912[address] [place], [place] [address]Dr. Airam Deuce MCV (RBC) [Entitic vol] 92.1 fL Normal 81.0-99.0 [facility] Comment on above: Performed By: #### C BC ####[facility] Vytiiiirbf180[address] [place], [place] [address]Dr. Airam Tripathi MONO # 0.6 103/ul Normal 0.3-0.8 [facility] Comment on above: Performed By: #### C BC ####[facility] Uixlpwscxx4445[address] [place], [place] [address]Dr. Selenaneil Tripathi Monocytes/100 WBC (Bld) 10.0 % Normal 1.7-12.0 [facility] Comment on above: Performed By: #### C BC ####[facility] Qnouuwjjyy7576[address] [place], [place] [address]Dr. Airam Tripathi NEUT # 3.7 103/ul Normal 1.4-6.5 [facility] Comment on above: Performed By: #### C BC ####[facility] Okptrheiqe043[address] [place], [place] [address]Dr. Airam Tripathi Neutrophils/100 WBC (Bld) 60.6 % Normal 43.0-75.0 [facility] Comment on above: Performed By: #### C BC ####[facility] Gvgxztklcd350[address] [place], [place] [address]Dr. Airam Deuce Platelet mean volume (Bld) [Entitic vol] 9.1 fL Critically low 9.5-13.5 [facility] Comment on above: Performed By: #### C BC ####[facility] Xkkfrxoxai7768 [place] [address]Dr. Airam Tripathi PLT 242 103/ul Normal 150-450 [facility] Comment on above: Performed By: #### C BC ####[facility] Dvavwgszcs7265 [place] [address]Dr. Airam Tripathi RBC 3.04 106/ul Critically low 4.20-5.40 [facility] Comment on above: Performed By: #### C BC ####[facility] Uglnprtmin1630 [place] [address]Dr. Airam Tripathi WBC 6.1 103/ul Normal 4.0-11.0 [facility] Comment on above: Performed By: #### C BC ####[facility] Dlomzimzav2478[address] [place], [place] [address]Dr. Airam Tripathi CT STROKE HEAD WOon 11-17-19 CT STROKE HEAD WO Normal [facility] PROF CHEM 8 (BAS METB)on Anion gap [Moles/Vol] 9.8 mmol/L Normal [facility] Comment on above: Performed By: #### B MP, HSTROPN ####[facility] Vjygqummiw4[address] [place], [place] [address]Dr. Selenaneil Tripathi Calcium [Mass/Vol] 8.4 mg/dL Critically low 8.5-10.1 [facility] Comment on above: Performed By: #### B MP, HSTROPN ####[facility] Swggjqnlkw7957 [place] [address]Dr. Selenaneil Tripathi Chloride [Moles/Vol] 99 mmol/L Normal 98-107 [facility] Comment on above: Performed By: #### B MP, HSTROPN ####[facility] Nippuzbypt7163 [place] [address]Dr. Selenaneil Tripathi CO2 [Moles/Vol] 28.3 mmol/L Normal 21.0-32.0 [facility] Comment on above: Performed By: #### B MP, HSTROPN ####[facility] Rjojcjruoc1944 [place] [address]Dr. Selenaneil Tripathi Creatinine [Mass/Vol] 1.40 mg/dL Critically high 0.55-1.02 [facility] Comment on above: Performed By: #### B GERTRUDE, HSTROPN ####[facility] Ztwsnfjznz5445 [place] [address]Dr. Airam Tripathi EGFR-AF SLOVENIAN 46 mL/min/1.73m2 Critically low >=60 [facility] Comment on above: Performed By: #### B GERTRUDE, HSTROPN ####[facility] Peprdiycpj7[address] [place], [place] [address]Dr. Airam Tripathi EGFR-NON AF SLOVENIAN 38 mL/min/1.73m2 Critically low >=60 [facility] Comment on above: Performed By: #### B GERTRUDE, HSTROPN ####[facility] Vyleodqebx6367[address] [place], [place] [address]Dr. Airam Tripathi Glucose [Mass/Vol] 88 mg/dL Normal 74-106 [facility] Comment on above: Performed By: #### B GERTRUDE, HSTROPN ####[facility] Bwajznbehi5304[address] [place], [place] [address]Dr. Selenaneil Tripathi Potassium [Moles/Vol] 5.1 mmol/L Normal 3.5-5.1 [facility] Comment on above: Performed By: #### B GERTRUDE, HSTROPN ####[facility] Acycgvwgnf6335[address] [place], [place] [address]Dr. Airam Tripathi Sodium [Moles/Vol] 132 mmol/L Critically low 136-145 [facility] Comment on above: Performed By: #### B GERTRUDE, HSTROPN ####[facility] Pbxahwwsem4580[address] [place], [place] [address]Dr. Airam Tripathi Urea nitrogen [Mass/Vol] 56.0 mg/dL Critically high 7.0-18.0 [facility] Comment on above: Performed By: #### B GERTRUDE, HSTROPN ####[facility] Kstrjlalpm2776[address] [place], [place] [address]Dr. Selenaenil Tripathi Urea nitrogen/Creatinine [Mass ratio] 40.0 mg/mg Normal [facility] Comment on above: Performed By: #### B GERTRUDE, HSTROPN ####[facility] Tpauejgpgi8432 [place] [address]Dr. Airam Tripathi TROPONIN, HIGH SENSITIVITYon 11-16-2022 HSTROP 9.9 pg/mL Normal 4.0-51.3 [facility] Comment on above: Result Comment: CUT- OFF POINTS HAVE BEEN ESTABLISHED BASED ON THE FOURTH UNIVERSAL DEFINITIONS OF MYOCARDIALINFARCTION. THE UPPER REFERENCE LIMIT (URL) OF TROPONIN, DEFINED THE 99TH PERCENTILE OFcTnI DISTRIBUTION IN A REFERENCE POPULATION, HAS BEEN CONFIRMED THE DECISION THRESHOLDFOR GA DIAGNOSIS. Performed By: #### B GERTRUDE, HSTROPN ####[facility] Nzyvchjnxa2523 [place] [address]Dr. Airam Tripathi XR CHEST 1 Von 11-16-2022 XR CHEST 1 V Normal [facility] CBC AUTO DIFFon 11-11-2022 BASO # 0.0 103/ul Normal 0.0-0.1 [facility] Comment on above: Performed By: #### C BC ####[facility] Ilhfzjeivh01[address] [place], [place] [address]Dr. Airam Deuce Basophils/100 WBC (Bld) 0.4 % Normal 0.2-2.0 [facility] Comment on above: Performed By: #### C BC ####[facility] Rfxylmpbfy4131 [place] [address]Dr. Airam Tripathi EO # 0.4 103/ul Normal 0.0-0.7 [facility] Comment on above: Performed By: #### C BC ####[facility] Azqyugvyix0130 [place] [address]Dr. Airam Deuce Eosinophils/100 WBC (Bld) 4.6 % Normal 0.9-7.0 [facility] Comment on above: Performed By: #### C BC ####[facility] Jcbwtvsvay4549[address] [place], [place] [address]Dr. Airam Tripathi Erythrocyte distribution width (RBC) [Ratio] 15.8 % Critically high 11.0-15.0 [facility] Comment on above: Performed By: #### C BC ####[facility] Tirgureslh[address] [place], [place] [address]Dr. Airam Tripathi Hematocrit (Bld) [Volume fraction] 30.3 % Critically low 36.0-48.0 [facility] Comment on above: Performed By: #### C BC ####[facility] Iuhqwgskmw1211 [place] [address]Dr. Airam Tripathi Hemoglobin (Bld) [Mass/Vol] 9.3 g/dL Critically low 12.0-16.0 [facility] Comment on above: Performed By: #### C BC ####[facility] Yggbmvhnpi395[address] [place], [place] [address]Dr. Airam Tripathi IG # 0.03 10e3/ul Normal 0.00-0.03 [facility] Comment on above: Performed By: #### C BC ####[facility] Ytpaoxvprf13[address] [place], [place] [address]Dr. Airam Tripathi IG % 0.4 % Normal 0.0-0.5 [facility] Comment on above: Performed By: #### C BC ####[facility] Lrlplphaki0330[address] [place], [place] [address]Dr. Airam Tripathi LYMPH # 2.0 103/ul Normal 1.2-3.8 [facility] Comment on above: Performed By: #### C BC ####[facility] Scgrwffjqp7878 [place] [address]Dr. Airam Tripathi Lymphocytes/100 WBC (Bld) 24.5 % Normal 20.5-60.0 [facility] Comment on above: Performed By: #### C BC ####[facility] Uqpafjjsrz4162 [place] [address]Dr. Airam Tripathi MANUAL DIFF REQ NO Normal [facility] Comment on above: Performed By: #### C BC ####[facility] Pjdhqthqte023[address] [place], [place] [address]DrKianna Tripathi MCH (RBC) [Entitic mass] 28.9 pg Normal 26.7-34.0 [facility] Comment on above: Performed By: #### C BC ####[facility] Pselfvcddm7634[address] [place], [place] [address]Dr. Airam Tripathi MCHC (RBC) [Mass/Vol] 30.7 g/dL Normal 29.9-35.2 [facility] Comment on above: Performed By: #### C BC ####[facility] Awevtseefj6210 [place] [address]Dr. Airam Deuce MCV (RBC) [Entitic vol] 94.1 fL Normal 81.0-99.0 [facility] Comment on above: Performed By: #### C BC ####[facility] Vkogqkbwbp9716[address] [place], [place] [address]Dr. Airam Tripathi MONO # 0.7 103/ul Normal 0.3-0.8 [facility] Comment on above: Performed By: #### C BC ####[facility] Tbbxhrncbu9846[address] [place], [place] [address]Dr. Airam Tripathi Monocytes/100 WBC (Bld) 8.3 % Normal 1.7-12.0 [facility] Comment on above: Performed By: #### C BC ####[facility] Bugwhwjyqj584[address] [place], [place] [address]Dr. Airam Tripathi NEUT # 5.0 103/ul Normal 1.4-6.5 [facility] Comment on above: Performed By: #### C BC ####[facility] Bogdsqsyii6558[address] [place], [place] [address]Dr. Airam Tripathi Neutrophils/100 WBC (Bld) 61.8 % Normal 43.0-75.0 [facility] Comment on above: Performed By: #### C BC ####[facility] Iplnagqrlt73[address] [place], [place] [address]Dr. Airam Tripathi Platelet mean volume (Bld) [Entitic vol] 9.4 fL Critically low 9.5-13.5 [facility] Comment on above: Performed By: #### C BC ####[facility] Ioqlbuylnn913322 [address] [place], [place] [address]Dr. Airam Tripathi PLT 270 103/ul Normal 150-450 [facility] Comment on above: Performed By: #### C BC ####[facility] Rqeuvovrav7515 [place] [address]Dr. Airam Tripathi RBC 3.22 106/ul Critically low 4.20-5.40 [facility] Comment on above: Performed By: #### C BC ####[facility] Sdazgnbldb7914 [place] [address]Dr. Airam Tripathi WBC 8.1 103/ul Normal 4.0-11.0 [facility] Comment on above: Performed By: #### C BC ####[facility] Dlyczdrfbe0618 [place] [address]DrKianna Tripathi PROF 14(COMP METB)on 023 Albumin [Mass/Vol] 3.2 g/dL Critically low 3.4-5.0 [facility] Comment on above: Performed By: #### C MP ####[facility] Pxhftysabi1220[address] [place], [place] [address]Dr. Airam Tripathi Albumin/Globulin [Mass ratio] 1.0 {ratio} Normal [facility] Comment on above: Performed By: #### C MP ####[facility] Jyvfdzzeay780[address] [place], [place] [address]Dr. Airam Tripathi ALP [Catalytic activity/Vol] 108 U/L Normal 46-116 [facility] Comment on above: Performed By: #### C MP ####[facility] Hugunhnahx356[address] [place], [place] [address]Dr. Airam Tripathi ALT [Catalytic activity/Vol] 30 U/L Normal 14-59 [facility] Comment on above: Performed By: #### C MP ####[facility] Zpfgjpkduu18[address] [place], [place] [address]DrKianna Tripathi Anion gap [Moles/Vol] 12.8 mmol/L Normal [facility] Comment on above: Performed By: #### C MP ####[facility] Jloeqgzbsw88[address] [place], [place] [address]DrKianna Tripathi AST [Catalytic activity/Vol] 33 U/L Normal 15-37 [facility] Comment on above: Performed By: #### C MP ####[facility] Xyjdysutpp8665[address] [place], [place] [address]Dr. Airam Tripathi Bilirubin [Mass/Vol] 0.2 mg/dL Normal 0.2-1.0 [facility] Comment on above: Performed By: #### C MP ####[facility] Esecnkwjqa0547[address] [place], [place] [address]Dr. Airam Tripathi Calcium [Mass/Vol] 8.3 mg/dL Critically low 8.5-10.1 [facility] Comment on above: Performed By: #### C MP ####[facility] Kepxxgpwiw5904[address] [place], [place] [address]Dr. Airam Deuce Chloride [Moles/Vol] 99 mmol/L Normal 98-107 [facility] Comment on above: Performed By: #### C MP ####[facility] Oiepxhbdcj069[address] [place], [place] [address]Dr. Airam Deuce CO2 [Moles/Vol] 27.6 mmol/L Normal 21.0-32.0 [facility] Comment on above: Performed By: #### C MP ####[facility] Acdpehdjuq213[address] [place], [place] [address]Dr. Airam Deuce Creatinine [Mass/Vol] 2.01 mg/dL Critically high 0.55-1.02 [facility] Comment on above: Performed By: #### C MP ####[facility] Qmdckgyjpm4179[address] [place], [place] [address]Dr. Airam Deuce EGFR-AF SLOVENIAN 31 mL/min/1.73m2 Critically low >=60 [facility] Comment on above: Performed By: #### C MP ####[facility] Mntavrtfpz2885[address] [place], [place] [address]Dr. Selenaneil Deuce EGFR-NON AF SLOVENIAN 25 mL/min/1.73m2 Critically low >=60 [facility] Comment on above: Performed By: #### C MP ####[facility] Lvodglqsbg5020[address] [place], [place] [address]Dr. Airam Tripathi Globulin (S) [Mass/Vol] 3.2 g/dL Normal [facility] Comment on above: Performed By: #### C MP ####[facility] Xbrdoaxbnq3836[address] [place], [place] [address]Dr. Airam Tripathi Glucose [Mass/Vol] 158 mg/dL Critically high 74-106 [facility] Comment on above: Performed By: #### C MP ####[facility] Vgwnjdbbnf3334 [place] [address]Dr. Airam Tripathi Potassium [Moles/Vol] 5.4 mmol/L Critically high 3.5-5.1 [facility] Comment on above: Performed By: #### C MP ####[facility] Mxbxfecsnt4561 [place] [address]Dr. Selenaneil Tripathi Protein [Mass/Vol] 6.4 g/dL Normal 6.4-8.2 [facility] Comment on above: Performed By: #### C MP ####[facility] Tylvxjbzfq1413[address] [place], [place] [address]Dr. Airam Tripathi Sodium [Moles/Vol] 134 mmol/L Critically low 136-145 [facility] Comment on above: Performed By: #### C MP ####[facility] Obbvhnasia15[address] [place], [place] [address]Dr. Airam Tripathi Urea nitrogen [Mass/Vol] 52.0 mg/dL Critically high 7.0-18.0 [facility] Comment on above: Performed By: #### C MP ####[facility] Qmbndmmonf506[address] [place], [place] [address]Dr. Airam Tripathi Urea nitrogen/Creatinine [Mass ratio] 25.9 mg/mg Normal [facility] Comment on above: Performed By: #### C MP ####[facility] Aldzucuvnd16[address] [place], [place] [address]Dr. Airam Tripathi OSMOLALITYon 11-06-2022 Osmolality [Osmolality] 261 mosm/kg Critically low 275-295 [facility] Comment on above: Performed By: #### O SMO ####[facility] Ndrzxnaucl020[address] [place], [place] [address]Dr. Airam Deuce XR HIPS GUMARO 3_4V WO PELVISon 11-04-2022 XR HIPS GUMARO 3_4V WO PELVIS Normal [facility] XR KNEE LT 4V or >on 023 XR KNEE LT 4V or > Normal [facility] BNPon 11-03-2022 Natriuretic peptide B (Bld) [Mass/Vol] 1168.0 pg/mL Critically high <=900.0 [facility] Comment on above: Performed By: #### B INSTRUMENT MAKER AND REPAIRER, BMP ####[facility] L[address]kgmqlytk[address] [place], [place] [address]Dr. Airam Deuce CBC AUTO DIFFon 11-03-2022 BASO # 0.0 103/ul Normal 0.0-0.1 [facility] Comment on above: Performed By: #### C BC ####[facility] Dsqnohemjo64[address] [place], [place] [address]Dr. Airam Tripathi Basophils/100 WBC (Bld) 0.3 % Normal 0.2-2.0 [facility] Comment on above: Performed By: #### C BC ####[facility] Osdotegwvg65[address] [place], [place] [address]Dr. Airam Tripathi EO # 0.2 103/ul Normal 0.0-0.7 [facility] Comment on above: Performed By: #### C BC ####[facility] Rzdityrauj[address] [place], [place] [address]Dr. Airam Tripathi Eosinophils/100 WBC (Bld) 1.9 % Normal 0.9-7.0 [facility] Comment on above: Performed By: #### C BC ####[facility] Tsaxofschz[address] [place], [place] [address]Dr. Airam Tripathi Erythrocyte distribution width (RBC) [Ratio] 15.2 % Critically high 11.0-15.0 [facility] Comment on above: Performed By: #### C BC ####[facility] Kzetrgpmwq[address] [place], [place] [address]Dr. Airam Tripathi Hematocrit (Bld) [Volume fraction] 34.3 % Critically low 36.0-48.0 [facility] Comment on above: Performed By: #### C BC ####[facility] Ejdkpkycfx[address] [place], [place] [address]Dr. Airam Tripathi Hemoglobin (Bld) [Mass/Vol] 11.0 g/dL Critically low 12.0-16.0 [facility] Comment on above: Performed By: #### C BC ####[facility] Stdugtjssp0241 [place] [id number]. Airam Tripathi IG # 0.06 10e3/ul Critically high 0.00-0.03 [facility] Comment on above: Performed By: #### C BC ####[facility] Spzspuawtb0730 [place] [address]Dr. Airam Tripathi IG % 0.5 % Normal 0.0-0.5 [facility] Comment on above: Performed By: #### C BC ####[facility] Jejfutfjcz3734 [place] [address]Dr. Airam Tripathi LYMPH # 2.3 103/ul Normal 1.2-3.8 [facility] Comment on above: Performed By: #### C BC ####[facility] Qcvvitkjaf4376 [place] [address]DrKianna Tripathi Lymphocytes/100 WBC (Bld) 20.4 % Critically low 20.5-60.0 [facility] Comment on above: Performed By: #### C BC ####[facility] Pqycaqzrtb2226 [place] [address]DrKianna Tripathi MANUAL DIFF REQ NO Normal [facility] Comment on above: Performed By: #### C BC ####[facility] Eqkyrjfuzy3403 [place] [address]Dr. Airam Tripathi MCH (RBC) [Entitic mass] 28.7 pg Normal 26.7-34.0 [facility] Comment on above: Performed By: #### C BC ####[facility] Tblqeozqlk7450 [place] [address]Dr. Selenaneil Tripathi MCHC (RBC) [Mass/Vol] 32.1 g/dL Normal 29.9-35.2 [facility] Comment on above: Performed By: #### C BC ####[facility] Wckunxchxi2311 [place] [address]Dr. Airam Tripathi MCV (RBC) [Entitic vol] 89.6 fL Normal 81.0-99.0 [facility] Comment on above: Performed By: #### C BC ####[facility] Veraqoparm1198 [place] [id number]. Airam Tripathi MONO # 0.9 103/ul Critically high 0.3-0.8 [facility] Comment on above: Performed By: #### C BC ####[facility] Qjypgnonwe3486 [place] [id number]. Airam Tripathi Monocytes/100 WBC (Bld) 8.3 % Normal 1.7-12.0 [facility] Comment on above: Performed By: #### C BC ####[facility] Hhascuyucg1816 [place] [id number]. Airam Tripathi NEUT # 7.8 103/ul Critically high 1.4-6.5 [facility] Comment on above: Performed By: #### C BC ####[facility] Nwrzlerdrz7119 [place] [address]Dr. Airam Tripathi Neutrophils/100 WBC (Bld) 68.6 % Normal 43.0-75.0 [facility] Comment on above: Performed By: #### C BC ####[facility] Ctdlaezixh9599 [place] [id number]. Airam Tripathi Platelet mean volume (Bld) [Entitic vol] 8.9 fL Critically low 9.5-13.5 [facility] Comment on above: Performed By: #### C BC ####[facility] Qmhjcrbzlh0178 [place] [address]Dr. Airam Tripathi PLT 323 103/ul Normal 150-450 [facility] Comment on above: Performed By: #### C BC ####[facility] Acrvufeznq3861 [place] [id number]. Airam Tripathi RBC 3.83 106/ul Critically low 4.20-5.40 [facility] Comment on above: Performed By: #### C BC ####[facility] Tjnlcqnhnk4291 [place] [id number]. Airam Tripathi WBC 11.4 103/ul Critically high 4.0-11.0 [facility] Comment on above: Performed By: #### C BC ####[facility] Hewmjkplpf3360 [place] [id number]. Airam Tripathi BASO # 0.0 103/ul Normal 0.0-0.1 [facility] Comment on above: Performed By: #### C BC ####[facility] X[address]esyj[address] [place], [place] [address]Dr. Airam Tripathi Basophils/100 WBC (Bld) 0.2 % Normal 0.2-2.0 [facility] Comment on above: Performed By: #### C BC ####[facility] Djagrgblwj80[address] [place], [place] [address]Dr. Airam Tripathi EO # 0.1 103/ul Normal 0.0-0.7 [facility] Comment on above: Performed By: #### C BC ####[facility] Tvxcwapbco64[address] [place], [place] [address]Dr. Selenaneil Tripathi Eosinophils/100 WBC (Bld) 0.7 % Critically low 0.9-7.0 [facility] Comment on above: Performed By: #### C BC ####[facility] Nkwgghxhcm558[address] [place], [place] [address]Dr. Airam Tripathi Erythrocyte distribution width (RBC) [Ratio] 15.4 % Critically high 11.0-15.0 [facility] Comment on above: Performed By: #### C BC ####[facility] Cylsyvdecf9197[address] [place], [place] [address]Dr. Airam Tripathi Hematocrit (Bld) [Volume fraction] 33.6 % Critically low 36.0-48.0 [facility] Comment on above: Performed By: #### C BC ####[facility] Rmemevwwqn6256[address] [place], [place] [address]Dr. Airam Tripathi Hemoglobin (Bld) [Mass/Vol] 10.9 g/dL Critically low 12.0-16.0 [facility] Comment on above: Performed By: #### C BC ####[facility] Kvvjuvqtzs5[address] [place], [place] [address]Dr. Airam Tripathi IG # 0.04 10e3/ul Critically high 0.00-0.03 [facility] Comment on above: Performed By: #### C BC ####[facility] Zrkmncuseu0087 [place] [address]Dr. Airam Tripathi IG % 0.5 % Normal 0.0-0.5 [facility] Comment on above: Performed By: #### C BC ####[facility] Vqzngpjfsu4384 [place] [address]Dr. Airam Tripathi LYMPH # 1.1 103/ul Critically low 1.2-3.8 [facility] Comment on above: Performed By: #### C BC ####[facility] Mebxwcjnrm2100 [place] [address]Dr. Airam Deuce Lymphocytes/100 WBC (Bld) 13.3 % Critically low 20.5-60.0 [facility] Comment on above: Performed By: #### C BC ####[facility] Zqobiwlwxa87[address] [place], [place] [address]Dr. Selenaneil Tripathi MANUAL DIFF REQ NO Normal [facility] Comment on above: Performed By: #### C BC ####[facility] Wpmrkdknye[address] [place], [place] [address]Dr. Airam Tripathi MCH (RBC) [Entitic mass] 29.1 pg Normal 26.7-34.0 [facility] Comment on above: Performed By: #### C BC ####[facility] Bjlvbkuvgu8518 [place] [address]Dr. Airam Tripathi MCHC (RBC) [Mass/Vol] 32.4 g/dL Normal 29.9-35.2 [facility] Comment on above: Performed By: #### C BC ####[facility] Dgtcbrmsgd6661 [place] [address]Dr. Airam Tripathi MCV (RBC) [Entitic vol] 89.6 fL Normal 81.0-99.0 [facility] Comment on above: Performed By: #### C BC ####[facility] Tbpogxnnfd2[address] [place], [place] [address]Dr. Airam Deuce MONO # 0.5 103/ul Normal 0.3-0.8 [facility] Comment on above: Performed By: #### C BC ####[facility] Hsyqxkidzb8705 [place] [id number]. Airam Tripathi Monocytes/100 WBC (Bld) 6.4 % Normal 1.7-12.0 [facility] Comment on above: Performed By: #### C BC ####[facility] Wjcublqxgb5779 [place] [id number]. Airam Tripathi NEUT # 6.5 103/ul Normal 1.4-6.5 [facility] Comment on above: Performed By: #### C BC ####[facility] Kjlwpsktmf9491 [place] [id number]. Airam Tripathi Neutrophils/100 WBC (Bld) 78.9 % Critically high 43.0-75.0 [facility] Comment on above: Performed By: #### C BC ####[facility] Njvafwoseb9951 [place] [address]Dr. Airam Tripathi Platelet mean volume (Bld) [Entitic vol] 9.4 fL Critically low 9.5-13.5 [facility] Comment on above: Performed By: #### C BC ####[facility] Hlxjyksqqh0571 [place] [address]Dr. Airam Tripathi PLT 314 103/ul Normal 150-450 [facility] Comment on above: Performed By: #### C BC ####[facility] Qjvnzgqtpq8679 [place] [id number]. Airam Tripathi RBC 3.75 106/ul Critically low 4.20-5.40 [facility] Comment on above: Performed By: #### C BC ####[facility] Pbhjrsnstw9067 [place] [id number]. Airam Tripathi WBC 8.3 103/ul Normal 4.0-11.0 [facility] Comment on above: Performed By: #### C BC ####[facility] Tlzzxnbajz2321 [place] [address]Dr[address] Air[address] CT HEAD WO CONon 11-03-2022 CT HEAD WO CON Normal [facility] PROF 14(COMP METB)on 05-11-2 023 Albumin [Mass/Vol] 3.2 g/dL Critically low 3.4-5.0 [facility] Comment on above: Performed By: #### C MP ####[facility] Hoxljzwnlq6019 [place] [address]Dr. Airam Deuce Albumin/Globulin [Mass ratio] 0.9 {ratio} Normal [facility] Comment on above: Performed By: #### C MP ####[facility] Uetdapxzkd7010 [place] [address]Dr. Airam Deuce ALP [Catalytic activity/Vol] 109 U/L Normal 46-116 [facility] Comment on above: Performed By: #### C MP ####[facility] Awnzieiczw[address] [place], [place] [address]Dr. Airam Deuce ALT [Catalytic activity/Vol] 25 U/L Normal 14-59 [facility] Comment on above: Performed By: #### C MP ####[facility] Wemxianjyt77[address] [place], [place] [address]Dr. Selenaneil Deuce Anion gap [Moles/Vol] 10.9 mmol/L Normal [facility] Comment on above: Performed By: #### C MP ####[facility] Eciksvcbnx32[address] [place], [place] [address]Dr. Airam Deuce AST [Catalytic activity/Vol] 24 U/L Normal 15-37 [facility] Comment on above: Performed By: #### C MP ####[facility] Wzfooisitt72[address] [place], [place] [address]Dr. Airam Tripathi Bilirubin [Mass/Vol] 0.3 mg/dL Normal 0.2-1.0 [facility] Comment on above: Performed By: #### C MP ####[facility] Ilttcrhgnn[address] [place], [place] [address]Dr. Airam Tripathi Calcium [Mass/Vol] 8.6 mg/dL Normal 8.5-10.1 [facility] Comment on above: Performed By: #### C MP ####[facility] Jcbldjpdyc1329 [place] [address]Dr. Airam Tripathi Chloride [Moles/Vol] 95 mmol/L Critically low 98-107 [facility] Comment on above: Performed By: #### C MP ####[facility] Armfhixkss0831 [place] [address]Dr. Airam Tripathi CO2 [Moles/Vol] 27.8 mmol/L Normal 21.0-32.0 [facility] Comment on above: Performed By: #### C MP ####[facility] Zgxwyxzbao1433 [place] [address]Dr. Airam Tripathi Creatinine [Mass/Vol] 1.07 mg/dL Critically high 0.55-1.02 [facility] Comment on above: Performed By: #### C MP ####[facility] Sqrfsjmogj5054 [place] [address]Dr. Airam Tripathi EGFR-AF SLOVENIAN >60 Normal >=60 [facility] Comment on above: Performed By: #### C MP ####[facility] Vvbrafzvgb8679 [place] [address]Dr. Airam Tripathi EGFR-NON AF SLOVENIAN 52 mL/min/1.73m2 Critically low >=60 [facility] Comment on above: Performed By: #### C MP ####[facility] Qfinqmbnfs2590 [place] [address]Dr. Airam Tripathi Globulin (S) [Mass/Vol] 3.5 g/dL Normal [facility] Comment on above: Performed By: #### C MP ####[facility] Nmlgfqbpem0389 [place] [address]Dr. Airam Tripathi Glucose [Mass/Vol] 86 mg/dL Normal 74-106 [facility] Comment on above: Performed By: #### C MP ####[facility] Zxpvnptxny2407 [place] [address]Dr. Airam Tripathi Potassium [Moles/Vol] 4.7 mmol/L Normal 3.5-5.1 [facility] Comment on above: Performed By: #### C MP ####[facility] Ttzcsxykvt5[address] [place], [place] [address]Dr. Airam Tripathi Protein [Mass/Vol] 6.7 g/dL Normal 6.4-8.2 [facility] Comment on above: Performed By: #### C MP ####[facility] Ozanjprnei2580 [place] [address]Dr. Airam Tripathi Sodium [Moles/Vol] 129 mmol/L Critically low 136-145 [facility] Comment on above: Performed By: #### C MP ####[facility] Pcgqyazitb5124[address] [place], [place] [address]Dr. Airam Tripathi Urea nitrogen [Mass/Vol] 19.0 mg/dL Critically high 7.0-18.0 [facility] Comment on above: Performed By: #### C MP ####[facility] Ugvcunpzfr6567[address] [place], [place] [address]Dr. Airam Tripathi Urea nitrogen/Creatinine [Mass ratio] 17.8 mg/mg Normal [facility] Comment on above: Performed By: #### C MP ####[facility] Hqtusifcwy8[address] [place], [place] [address]Dr. Airam Tripathi PROF CHEM 8 (BAS METB)on Anion gap [Moles/Vol] 9.0 mmol/L Normal [facility] Comment on above: Performed By: #### B INSTRUMENT MAKER AND REPAIRER, BMP ####[facility] Emgozfauie9[address] [place], [place] [address]Dr. Airam Tripathi Calcium [Mass/Vol] 8.5 mg/dL Normal 8.5-10.1 [facility] Comment on above: Performed By: #### B INSTRUMENT MAKER AND REPAIRER, BMP ####[facility] Phvwrgqzrn9116[address] [place], [place] [address]Dr. Airam Tripathi Chloride [Moles/Vol] 93 mmol/L Critically low 98-107 [facility] Comment on above: Performed By: #### B INSTRUMENT MAKER AND REPAIRER, BMP ####[facility] Avhgatmwcr8444[address] [place], [place] [address]Dr. Airam Tripathi CO2 [Moles/Vol] 28.1 mmol/L Normal 21.0-32.0 [facility] Comment on above: Performed By: #### B INSTRUMENT MAKER AND REPAIRER, BMP ####[facility] Gpihxzvxhm831[address] [place], [place] [address]Dr. Airam Tripathi Creatinine [Mass/Vol] 1.17 mg/dL Critically high 0.55-1.02 [facility] Comment on above: Performed By: #### B INSTRUMENT MAKER AND REPAIRER, BMP ####[facility] Oaojzvdbee656[address] [place], [place] [address]Dr. Airam Tripathi EGFR-AF SLOVENIAN 57 mL/min/1.73m2 Critically low >=60 [facility] Comment on above: Performed By: #### B INSTRUMENT MAKER AND REPAIRER, BMP ####[facility] Tnlodkmtms15[address] [place], [place] [address]Dr. Airam Tripathi EGFR-NON AF SLOVENIAN 47 mL/min/1.73m2 Critically low >=60 [facility] Comment on above: Performed By: #### B INSTRUMENT MAKER AND REPAIRER, BMP ####[facility] Zwtyyqntty[address] [place], [place] [address]Dr. Airam Tripathi Glucose [Mass/Vol] 107 mg/dL Critically high 74-106 [facility] Comment on above: Performed By: #### B INSTRUMENT MAKER AND REPAIRER, BMP ####[facility] Bhudfslxra75[address] [place], [place] [address]Dr. Airam Tripathi Potassium [Moles/Vol] 4.1 mmol/L Normal 3.5-5.1 [facility] Comment on above: Performed By: #### B INSTRUMENT MAKER AND REPAIRER, BMP ####[facility] Lyykjphlho6346[address] [place], [place] [address]Dr. Airam Tripathi Sodium [Moles/Vol] 126 mmol/L Critically low 136-145 [facility] Comment on above: Performed By: #### B INSTRUMENT MAKER AND REPAIRER, BMP ####[facility] Vqclygpjlt80[address] [place], [place] [address]Dr. Airam Tripathi Urea nitrogen [Mass/Vol] 20.0 mg/dL Critically high 7.0-18.0 [facility] Comment on above: Performed By: #### B INSTRUMENT MAKER AND REPAIRER, BMP ####[facility] Ggxzwfokph68[address] [place], [place] [address]Dr. Selenaneil Tripathi Urea nitrogen/Creatinine [Mass ratio] 17.1 mg/mg Normal [facility] Comment on above: Performed By: #### B INSTRUMENT MAKER AND REPAIRER, BMP ####[facility] Filowbmpnq4571 [place], [place] [address]Vf. Airam Tripathi XR CHEST 1 Von 11-03-2022 XR CHEST 1 V Normal [facility] Activated partial thrombopla stin time (aPTT) in platelet poor plasma by coagulation aOrdered By: Favian Helm on 10-28-2022 aPTT Coag (PPP) [Time] 31.7 s 25.1-36.5 [facility] Alanine aminotransferase [En zymatic activity/volume] in Serum or PlasmaOrdered By: Favian Helm on 10-28-2022 ALT [Catalytic activity/Vol] 14 U/L 7-52 [facility] Albumin [Mass/volume] in Ser um or Plasma by Bromocresol green (BCG) dye binding methoOrdered By: Favian Helm on 10-28-2022 Albumin BCG dye [Mass/Vol] 3.6 g/dL 3.5-5.7 [facility] Alkaline phosphatase [Enzyma tic activity/volume] in Serum or PlasmaOrdered By: Favian Helm on 10-28-2022 ALP [Catalytic activity/Vol] 84 U/L 34-104 [facility] Aspartate aminotransferase [ Enzymatic activity/volume] in Serum or PlasmaOrdered By: Favian Helm on 10-28-2022 AST [Catalytic activity/Vol] 21 U/L 13-39 [facility] B-Type Natriuretic Peptideon 10-28-2022 Natriuretic peptide B (Bld) [Mass/Vol] 551.0 pg/mL High 5-100 [facility] Comment on above: Result Comment: PERF ORMED BY: [place] [address] PATHOLOGIST CHIEF WHARFINGER TANNER GAVIN M.D. Performed By: #### V [id number], MG, BMP, JOSE, FE and TIBC, RETIC #### [address] Basophils Auto (Bld) [#/Vol] Ordered By: Favian Helm on 10-28-2022 Basophils (Bld) [#/Vol] 0.0 10*3/uL 0.0-0.2 [facility] Basophils/100 WBC Auto (Bld) Ordered By: Favina Helm on 10-28-2022 Basophils/100 WBC (Bld) 0.4 % . [facility] Bilirubin.total [Mass/volume ] in Serum or PlasmaOrdered By: Favian Helm on 10-28-2022 Bilirubin [Mass/Vol] 0.3 mg/dL 0.3-1.[address] [facility] [address] head/brain wo conon 10-28 CT head/brain wo con [facility] [place] [address] CT Scan Report Signed Patient: Mabel Moser MR#: [id number] : 1960 Acct:[id number] Age/Sex: 62 / F ADM Date: 10/28/22 Loc: ER Room: Type: [facility] ER Attending Dr: Copies to: Favian [...] Baljinder Ball M.D.10/28/2022 7:46 PM Dictation Location: [place] [address] Transcribed By: [facility] 10/28/221945 Dictated By: Baljinder Ball DO 10/28/221934 Signed By: 10/28/221945 Normal [facility] Calcium [Mass/volume] in Ser um or PlasmaOrdered By: Favian Helm on 10-28-2022 Calcium [Mass/Vol] 8.2 mg/dL 8.6-10.3 [facility] Carbon dioxide, total [Moles /volume] in Serum or PlasmaOrdered By: Favian Helm on 10-28-2022 CO2 [Moles/Vol] 25.7 mmol/L 21.0-31.0 [facility] Chloride [Moles/volume] in S andrea or PlasmaOrdered By: Favian Helm on 10-28-2022 Chloride [Moles/Vol] 98 mmol/L 98-107 [facility] Complete Blood Count Auto Di ffon 10-28-2022 Basophils (Bld) [#/Vol] 0.0 10*3/uL Normal 0.0-0.2 [facility] Comment on above: Result Comment: PERF ORMED BY: [place] [address] PATHOLOGIST CHIEF WHARFINGER TANNER GAVIN M.D. Performed By: #### V [id number], MG, BMP, JOSE, FE and TIBC, RETIC #### [address] Basophils/100 WBC (Bld) 0.4 % Normal . [facility] Comment on above: Performed By: #### V [id number], MG, BMP, JOSE, FE and TIBC, RETIC #### [facility] [address] [place] [address] [place] Eosinophils (Bld) [#/Vol] 0.1 10*3/uL Normal 0.0-0.45 [facility] Comment on above: Performed By: #### V [id number], MG, BMP, JOSE, FE and TIBC, RETIC #### [place] [address] [place] Eosinophils/100 WBC (Bld) 1.0 % Normal . [facility] Comment on above: Performed By: #### V [id number], MG, BMP, JOSE, FE and TIBC, RETIC #### [address] Erythrocyte distribution width (RBC) [Ratio] 16.5 % High 11.9-15.3 [facility] Comment on above: Performed By: #### V [id number], MG, BMP, JOSE, FE and TIBC, RETIC #### [address] Hematocrit (Bld) [Volume fraction] 29.9 % Low 34.0-46.4 [facility] Comment on above: Performed By: #### V [id number], MG, BMP, JOSE, FE and TIBC, RETIC #### [address] Hemoglobin (Bld) [Mass/Vol] 9.6 g/dL Low 11.8-15.4 [facility] Comment on above: Performed By: #### V [id number], MG, BMP, JOSE, FE and TIBC, RETIC #### [address] Lymphocytes (Bld) [#/Vol] 0.8 10*3/uL Low 1.00-4.8 [facility] Comment on above: Performed By: #### V [id number], MG, BMP, JOSE, FE and TIBC, RETIC #### [address] Lymphocytes/100 WBC (Bld) 12.8 % Normal . [facility] Comment on above: Performed By: #### V [id number], MG, BMP, JOSE, FE and TIBC, RETIC #### [address] MCH (RBC) [Entitic mass] 28.3 pg Normal 24.7-34.3 [facility] Comment on above: Performed By: #### V [id number], MG, BMP, JOSE, FE and TIBC, RETIC #### [address] MCV (RBC) [Entitic vol] 88.3 fL Normal 80-100 [facility] Comment on above: Performed By: #### V [id number], MG, BMP, JOSE, FE and TIBC, RETIC #### [address] Mean Corpuscular HGB Conc 32.0 g/dL Normal 32.0-35.0 [facility] Comment on above: Performed By: #### V [id number], MG, BMP, JOSE, FE and TIBC, RETIC #### [address] Monocytes (Bld) [#/Vol] 0.2 10*3/uL Normal 0.0-0.8 [facility] Comment on above: Performed By: #### V [id number], MG, BMP, JOSE, FE and TIBC, RETIC #### [address] Monocytes/100 WBC (Bld) 17.29 % Normal 0.00-20.00 [facility] Comment on above: Performed By: #### V [id number], MG, BMP, JOSE, FE and TIBC, RETIC #### [address] Monocytes/100 WBC (Bld) 2.5 % Normal . [facility] Comment on above: Performed By: #### V [id number], MG, BMP, JOSE, FE and TIBC, RETIC #### [address] Neutrophils (Bld) [#/Vol] 5.5 10*3/uL Normal 1.8-7.7 [facility] Comment on above: Performed By: #### V [id number], MG, BMP, JOSE, FE and TIBC, RETIC #### [address] Neutrophils/100 WBC (Bld) 83.3 % Normal . [facility] Comment on above: Performed By: #### V [id number], MG, BMP, JOSE, FE and TIBC, RETIC #### [address] NRBC% 0.0 /100{WBC} Normal 0-0.5 [facility] Comment on above: Performed By: #### V [id number], MG, BMP, JOSE, FE and TIBC, RETIC #### [address] Platelet mean volume (Bld) [Entitic vol] 7.3 fL Normal 6.3-10.7 [facility] Comment on above: Performed By: #### V [id number], MG, BMP, JOSE, FE and TIBC, RETIC #### [address] Platelets (Bld) [#/Vol] 260 10*3/uL Normal 150-450 [facility] Comment on above: Performed By: #### V [id number], MG, BMP, JOSE, FE and TIBC, RETIC #### [address] RBC (Bld) [#/Vol] 3.38 10*6/uL Low 3.60-5.00 [facility] Comment on above: Performed By: #### V [id number], MG, BMP, JOSE, FE and TIBC, RETIC #### [address] WBC (Bld) [#/Vol] 6.6 10*3/uL Normal 3.8-11.6 [facility] Comment on above: Performed By: #### V [id number], MG, BMP, JOSE, FE and TIBC, RETIC #### [address] Comprehensive Metabolic Pane sameer 10-28-2022 Albumin [Mass/Vol] 3.6 g/dL Normal 3.5-5.7 [facility] Comment on above: Performed By: #### V [id number], MG, BMP, JOSE, FE and TIBC, RETIC #### [address] Albumin/Globulin [Mass ratio] 1.6 {ratio} Normal [facility] Comment on above: Performed By: #### V COL10JSU, MG, BMP, JOSE, FE and TIBC, RETIC #### [address] ALP [Catalytic activity/Vol] 84 U/L Normal 34-104 [facility] Comment on above: Performed By: #### V [id number], MG, BMP, JOSE, FE and TIBC, RETIC #### [address] ALT [Catalytic activity/Vol] 14 U/L Normal 7-52 [facility] Comment on above: Performed By: #### V [id number], MG, BMP, JOSE, FE and TIBC, RETIC #### [address] Anion gap [Moles/Vol] 10.0 mmol/L Normal 6.0-15.0 [facility] Comment on above: Performed By: #### V [id number], MG, BMP, JOSE, FE and TIBC, RETIC #### [address] AST [Catalytic activity/Vol] 21 U/L Normal 13-39 [facility] Comment on above: Performed By: #### V [id number], MG, BMP, JOSE, FE and TIBC, RETIC #### [address] Bilirubin [Mass/Vol] 0.3 mg/dL Normal 0.3-1.0 [facility] Comment on above: Performed By: #### V [id number], MG, BMP, JOSE, FE and TIBC, RETIC #### [address] Calcium [Mass/Vol] 8.2 mg/dL Low 8.6-10.3 [facility] Comment on above: Performed By: #### V [id number], MG, BMP, JOSE, FE and TIBC, RETIC #### [address] [address] [place] Chloride [Moles/Vol] 98 mmol/L Normal 98-107 [facility] Comment on above: Performed By: #### V [id number], MG, BMP, JOSE, FE and TIBC, RETIC #### [facility] [address] CO2 [Moles/Vol] 25.7 mmol/L Normal 21.0-31.0 [facility] Comment on above: Performed By: #### V [id number], MG, BMP, JOSE, FE and TIBC, RETIC #### [facility] [address] Creatinine [Mass/Vol] 1.23 mg/dL High 0.60-1.20 [facility] Comment on above: Performed By: #### V [id number], MG, BMP, JOSE, FE and TIBC, RETIC #### [facility] [address] [place] [address] Creatinine Clr Calc Pharmacy 48.79 [facility] Comment on above: Performed By: #### V [id number], MG, BMP, JOSE, FE and TIBC, RETIC #### [facility] [address] [place] [address] GFR/1.73 sq M.predicted MDRD (S/P/Bld) [Vol rate/Area] 50.309 mL/min/{1.73_m2} [facility] Comment on above: Performed By: #### V [id number], MG, BMP, JOSE, FE and TIBC, RETIC #### [facility] [address] [place] [address] Globulin (S) [Mass/Vol] 2.3 g/dL [facility] Comment on above: Performed By: #### V [id number], MG, BMP, JOSE, FE and TIBC, RETIC #### [facility] [address] Glucose [Mass/Vol] 98 mg/dL Normal 70-100 [facility] Comment on above: Result Comment: [place] Glucose Reference Range is dependent on time and content of last meal. Glucose of more than 200 mg/dL in a nonstressed, ambulatory subject supports the diagnosis of Diabetes Mellitus. ADA recommended reference range Performed By: #### V [id number], MG, BMP, JOSE, FE and TIBC, RETIC #### [facility] [address] Potassium [Moles/Vol] 4.7 mmol/L Normal 3.5-5.1 [facility] Comment on above: Performed By: #### V [id number], MG, BMP, JOSE, FE and TIBC, RETIC #### [address] Protein [Mass/Vol] 5.9 g/dL Low 6.4-8.9 [facility] Comment on above: Performed By: #### V [id number], MG, BMP, JOSE, FE and TIBC, RETIC #### [address] Sodium [Moles/Vol] 129 mmol/L Low 136-145 [facility] Comment on above: Performed By: #### V [id number], MG, BMP, JOSE, FE and TIBC, RETIC #### [address] Urea nitrogen [Mass/Vol] 36 mg/dL High 7-25 [facility] Comment on above: Performed By: #### V [id number], MG, BMP, JOSE, FE and TIBC, RETIC #### [place] [address] [place] Creatine Kinaseon 10-28-2022 CK [Catalytic activity/Vol] 45 U/L Normal 30-223 [facility] Comment on above: Performed By: #### V [id number], MG, BMP, JOSE, FE and TIBC, RETIC #### [place] [address] [place] Creatine kinase [Enzymatic a ctivity/volume] in Serum or PlasmaOrdered By: Favian Helm on 10-28-2022 CK [Catalytic activity/Vol] 45 U/L 30-223 [facility] Creatinine [Mass/volume] in Serum or PlasmaOrdered By: Favian Helm on 10-28-2022 Creatinine [Mass/Vol] 1.23 mg/dL 0.60-1.20 [facility] ECG 12 lead ECGon 10-28-[address]22 [address] [facility] [place] [address] Electrocardiograph Report Signed Patient: Mabel Moser MR#: [id number] : 1960 Acct:[id number] Age/Sex: 62 / F ADM Date: 10/28/22 Loc: ER Room: Type: [facility] ER Attending Dr: Ordering Provider: [...] normal variant Confirmed by Chris MAURO DO ([id number]) on 10/28/2022 8:40:44 PM Referred By: Electronically Signed By:Chris MAURO DO Transcribed By: MUS Signed By Chris Mauro DO 0 10/28/222039 Normal [facility] Eosinophils Auto (Bld) [#/Vo l]Ordered By: Favian Helm on 10-28-2022 Eosinophils (Bld) [#/Vol] 0.1 10*3/uL 0.0-0.45 [facility] Eosinophils/100 WBC Auto (Bl d)Ordered By: Favian Helm on 10-28-2022 Eosinophils/100 WBC (Bld) 1.0 % . [facility] Erythrocyte distribution wid th Auto (RBC) [Ratio]Ordered By: Favian Helm on 10-28-2022 Erythrocyte distribution width (RBC) [Ratio] 16.5 % 11.9-15.3 [facility] Globulin Calc (S) [Mass/Vol] Ordered By: Favian Helm on 10-28-2022 Globulin (S) [Mass/Vol] 2.3 g/dL [facility] Glucose [Mass/volume] in Ser um or PlasmaOrdered By: Favian Helm on 10-28-2022 Glucose [Mass/Vol] 98 mg/dL 70-100 [facility] Comment on above: ADA recommended refe rence rangeRandom Glucose Reference Range is dependent on time and content of last meal. Glucose of more than 200 mg/dL in a nonstressed, ambulatory subject supports the diagnosis of Diabetes Mellitus. Hematocrit Auto (Bld) [Volum e fraction]Ordered By: Favian Helm on 10-28-2022 Hematocrit (Bld) [Volume fraction] 29.9 % 34.0-46.4 [facility] Hemoglobin [Mass/volume] in BloodOrdered By: Favian Helm on 10-28-2022 Hemoglobin (Bld) [Mass/Vol] 9.6 g/dL 11.8-15.4 [facility] Laboratory - CoagulationOrde red By: Favian Helm on 10-28-2022 PT Coag (PPP) [Time] 11.0 s 9.0-12.9 [facility] Leukocytes [#/volume] correc nicol for nucleated erythrocytes in Blood by Automated counOrdered By: Favian Helm on 10-28-2022 WBC corrected for nucl RBC Auto (Bld) [#/Vol] 6.6 10*3/uL 3.8-11.6 [facility] Lymphocytes Auto (Bld) [#/Vo l]Ordered By: Favian Helm on 10-28-2022 Lymphocytes (Bld) [#/Vol] 0.8 10*3/uL 1.00-4.8 [facility] Lymphocytes/100 WBC Auto (Bl d)Ordered By: Favian Helm on 10-28-2022 Lymphocytes/100 WBC (Bld) 12.8 % . [facility] MCH Auto (RBC) [Entitic mass ]Ordered By: Favian Helm on 10-28-2022 MCH (RBC) [Entitic mass] 28.3 pg 24.7-34.3 [facility] MCHC Auto (RBC) [Mass/Vol]Or dered By: Favian Helm on 10-28-2022 MCHC (RBC) [Mass/Vol] 32.0 g/dL 32.0-35.0 [facility] MCV Auto (RBC) [Entitic vol] Ordered By: Favian Helm on 10-28-2022 MCV (RBC) [Entitic vol] 88.3 fL 80-100 [facility] Magnesiumon 10-28-2022 Magnesium [Mass/Vol] 1.9 mg/dL Normal 1.9-2.7 [facility] Comment on above: Result Comment: PERF ORMED BY: [facility] [address] [place] [address] PATHOLOGIST CHIEF WHARFINGER TANNER GAVIN M.D. Performed By: #### V [id number], MG, BMP, JOSE, FE and TIBC, RETIC #### [address] Magnesium [Mass/volume] in S andrea or PlasmaOrdered By: Favian Helm on 10-28-2022 Magnesium [Mass/Vol] 1.9 mg/dL 1.9-2.7 [facility] Monocyte distribution width [Entitic volume] in Blood by AutomatedOrdered By: Favian Helm on 10-28-2022 Monocyte distribution width Auto (Bld) [Entitic vol] 17.29 % 0.00-20.00 [facility] Monocytes Auto (Bld) [#/Vol] Ordered By: Favian Helm on 10-28-2022 Monocytes (Bld) [#/Vol] 0.2 10*3/uL 0.0-0.8 [facility] Monocytes/100 WBC Auto (Bld) Ordered By: Favian Helm on 10-28-2022 Monocytes/100 WBC (Bld) 2.5 % . [facility] Natriuretic peptide B [Mass/ Vol]Ordered By: Favian Helm on 10-28-2022 Natriuretic peptide B (Bld) [Mass/Vol] 551.0 pg/mL 5-100 [facility] Neutrophils Auto (Bld) [#/Vo l]Ordered By: Favian Helm on 10-28-2022 Neutrophils (Bld) [#/Vol] 5.5 10*3/uL 1.8-7.7 [facility] Neutrophils/100 WBC Auto (Bl d)Ordered By: Favian Helm on 10-28-2022 Neutrophils/100 WBC (Bld) 83.3 % . [facility] No Panel InformationOrdered By: Favian Helm on 10-28-2022 Estimated GFR (CKD-EPI) 50.309 mL/Min [facility] Creatinine Clearance (Chem 48.79 [facility] Nucleated erythrocytes [Pres ence] in Blood by Automated countOrdered By: Favian Helm on 10-28-2022 Nucleated RBC Auto Ql (Bld) 0.0 /100{WBC} 0-0.5 [facility] Partial Thromboplastin Timeo n 10-28-2022 aPTT Coag (Bld) [Time] 31.7 s Normal 25.1-36.5 [facility] Comment on above: Result Comment: PERF ORMED BY: [facility] [address] [place] [address] PATHOLOGIST CHIEF WHARFINGER TANNER GAVIN M.D. Performed By: #### V [id number], MG, BMP, JOSE, FE and TIBC, RETIC #### [facility] [address] Platelet mean volume Auto (B ld) [Entitic vol]Ordered By: Favian Helm on 10-28-2022 Platelet mean volume (Bld) [Entitic vol] 7.3 fL 6.3-10.7 [facility] Platelet poor plasma interna tional normalized ratio (INR) by coagulation assay (relatOrdered By: Favian Helm on 10-28-2022 INR Coag (PPP) [Relative time] 1.0 {INR} [facility] Comment on above: INR Therapeutic Rang [...] 10-28-2022 Platelets (Bld) [#/Vol] 260 10*3/uL 150-450 [facility] Potassium [Moles/volume] in Serum or PlasmaOrdered By: Favian Helm on 10-28-2022 Potassium [Moles/Vol] 4.7 mmol/L 3.5-5.1 [facility] Protein [Mass/volume] in Ser um or PlasmaOrdered By: Favian Helm on 10-28-2022 Protein [Mass/Vol] 5.9 g/dL 6.4-8.9 [facility] Prothrombin Time INRon 10-28 INR Coag (PPP) [Relative time] 1.0 {INR} Normal [facility] Comment on above: Result Comment: INR [...] 3 - 4.5 Performed By: #### V [id number], MG, BMP, JOSE, FE and TIBC, RETIC #### [facility] [address] PT Coag (PPP) [Time] 11.0 s Normal 9.0-12.9 [facility] Comment on above: Performed By: #### V [id number], MG, BMP, JOSE, FE and TIBC, RETIC #### [facility] [address] RBC Auto (Bld) [#/Vol]Ordere d By: Favian Helm on 10-28-2022 RBC (Bld) [#/Vol] 3.38 10*6/uL 3.60-5.00 [facility] Serum or plasma albumin/glob ulin mass ratioOrdered By: Favian Helm on 10-28-2022 Albumin/Globulin [Mass ratio] 1.6 {ratio} [facility] Serum or plasma anion gap de terminationOrdered By: Favian Helm on 10-28-2022 Anion gap [Moles/Vol] 10.0 mmol/L 6.0-15.0 [facility] Sodium [Moles/volume] in Ser um or PlasmaOrdered By: Favian Helm on 10-28-2022 Sodium [Moles/Vol] 129 mmol/L 136-145 [facility] Troponin I High Sensitivityo n 10-28-2022 Troponin I High Sensitivity 5.8 pg/mL Normal 0.0-15.0 [facility] Comment on above: Result Comment: PERF ORMED BY: [place] [address] PATHOLOGIST CHIEF WHARFINGER TANNER GAVIN M.D. Performed By: #### V [id number], MG, BMP, JOSE, FE and TIBC, RETIC #### [address] Troponin I.cardiac [Mass/vol ume] in Serum or Plasma by Detection limit <= 0.01 ng/Ordered By: Favian Helm on 10-28-2022 Troponin I.cardiac DL <= 0.01 ng/mL [Mass/Vol] 5.8 pg/mL 0.0-15.0 [facility] Urea nitrogen [Mass/volume] in Serum or PlasmaOrdered By: Favian Helm on 10-28-2022 Urea nitrogen [Mass/Vol] 36 mg/dL 7-25 [facility] WBC Auto (Bld) [#/Vol]Ordere d By: Favina Helm on 10-28-2022 WBC (Bld) [#/Vol] 6.6 10*3/uL 3.8-11.6 [facility] XR chest 2V*on 10-28-2022 XR chest 2V* [facility] [place] [address] [place] [address] XRay Report Signed Patient: Mabel Moser MR#: [id number] : 1960 Acct:[id number] Age/Sex: 62 / F ADM Date: 10/28/22 Loc: ER Room: Type: [facility] ER Attending Dr: Copies to: Favian Helm PA-C Ordering Provider: Favian Helm PA-C Date of Service: 10/28/22 XR/XR chest 2V*: Shortness of Breath/Dyspnea Plain film chest 2 view HISTORY: Fluid overload. Shortness of breath. Headache. COMPARISON: 08/31/2018 FINDINGS: SUPPORT DEVICES: None POSTSURGICAL CHANGES: Right Ijutkj-u-Vice intact with tip overlying the distal SVC. HEART: Within normal limits PULMONARY RAI: Within normal limits MEDIASTINUM: Unremarkable LUNGS AND PLEURA: No acute lung process, pleural effusion or pneumothorax identified. BONY STRUCTURES: Intact ADDITIONAL FINDINGS None XR/XR chest 2V* IMPRESSION: No acute process. Impression dictated by: Baljinder Ball M.D.10/28/2022 7:50 PM Dictation Location: [place] [address] Transcribed By: [facility] 10/28/221949 Dictated By: Baljinder aBll DO 10/28/221945 Signed By: 10/28/221949 [facility] BNPon 10-26-2022 Natriuretic peptide B (Bld) [Mass/Vol] 2657.0 pg/mL Critically high <=900.0 [facility] Comment on above: Performed By: #### C MP, BNP ####[facility] [address] [place], [place] [address]DrKianna Tripathi CBC AUTO DIFFon 10-26-2022 BASO # 0.0 103/ul Normal 0.0-0.1 [facility] Comment on above: Performed By: #### C BC ####[facility] [address] [place], [place] [address]DrKianna Tripathi Basophils/100 WBC (Bld) 0.5 % Normal 0.2-2.0 [facility] Comment on above: Performed By: #### C BC ####[facility] [address] [place], [place] [address]DrKianna Tripathi EO # 0.3 103/ul Normal 0.0-0.7 [facility] Comment on above: Performed By: #### C BC ####[facility] [address] [place], [place] [address]DrKianna Tripathi Eosinophils/100 WBC (Bld) 4.8 % Normal 0.9-7.0 [facility] Comment on above: Performed By: #### C BC ####[facility] [address] [place], [place] [address]Dr. Airam Tripathi Erythrocyte distribution width (RBC) [Ratio] 15.5 % Critically high 11.0-15.0 [facility] Comment on above: Performed By: #### C BC ####[facility] [address] [place], [place] [address]Dr. Airam Tripathi Hematocrit (Bld) [Volume fraction] 27.7 % Critically low 36.0-48.0 [facility] Comment on above: Performed By: #### C BC ####[facility] [address] [place], [place] [address]Dr. Airam Tripathi Hemoglobin (Bld) [Mass/Vol] 8.8 g/dL Critically low 12.0-16.0 [facility] Comment on above: Performed By: #### C BC ####[facility] [address] [place], [place] [address]Dr. Airam Tripathi IG # 0.03 10e3/ul Normal 0.00-0.03 [facility] Comment on above: Performed By: #### C BC ####[facility] [address] [place], [place] [address]Dr. Airam Tripathi IG % 0.5 % Normal 0.0-0.5 [facility] Comment on above: Performed By: #### C BC ####[facility] [address] [place], [place] [address]Dr. Airam Tripathi LYMPH # 1.6 103/ul Normal 1.2-3.8 [facility] Comment on above: Performed By: #### C BC ####[facility] [address] [place], [place] [address]Dr. Airam Tripathi Lymphocytes/100 WBC (Bld) 25.5 % Normal 20.5-60.0 [facility] Comment on above: Performed By: #### C BC ####[facility] Jr[address] [place], [place] [address]Dr. Airam Tripathi MANUAL DIFF REQ NO Normal [facility] Comment on above: Performed By: #### C BC ####[facility] [address] [place] [address]Dr. Airam Tripathi MCH (RBC) [Entitic mass] 29.0 pg Normal 26.7-34.0 [facility] Comment on above: Performed By: #### C BC ####[facility] [address] [place] [address]Dr. Airam Tripathi MCHC (RBC) [Mass/Vol] 31.8 g/dL Normal 29.9-35.2 [facility] Comment on above: Performed By: #### C BC ####[facility] [address] [place], [place] [address]Dr. Airam Tripathi MCV (RBC) [Entitic vol] 91.4 fL Normal 81.0-99.0 [facility] Comment on above: Performed By: #### C BC ####[facility] N[address] [place], [place] [address]Dr. Airam Tripathi MONO # 0.5 103/ul Normal 0.3-0.8 [facility] Comment on above: Performed By: #### C BC ####[facility] Y[address]nh[address]ju[address] [place], [place] [address]Dr. Airam Tripathi Monocytes/100 WBC (Bld) 7.5 % Normal 1.7-12.0 [facility] Comment on above: Performed By: #### C BC ####[facility] [address] [place], [place] [address]DrKianna Tripathi NEUT # 3.9 103/ul Normal 1.4-6.5 [facility] Comment on above: Performed By: #### C BC ####[facility] [address] [place], [place] [address]DrKianna Tripathi Neutrophils/100 WBC (Bld) 61.2 % Normal 43.0-75.0 [facility] Comment on above: Performed By: #### C BC ####[facility] [address] [place], [place] [address]Dr. Airam Tripathi Platelet mean volume (Bld) [Entitic vol] 9.4 fL Critically low 9.5-13.5 [facility] Comment on above: Performed By: #### C BC ####[facility] [address] [place] [address]Dr. Airam Tripathi PLT 247 103/ul Normal 150-450 [facility] Comment on above: Performed By: #### C BC ####[facility] Oz[address]ug[address] [place] [address]Dr. Airam Tripathi RBC 3.03 106/ul Critically low 4.20-5.40 [facility] Comment on above: Performed By: #### C BC ####[facility] Qthhzoe[address]qm38[address] [place] [address]Dr. Airam Tripathi WBC 6.4 103/ul Normal 4.0-11.0 [facility] Comment on above: Performed By: #### C BC ####[facility] [address] [place], [place] [address]Dr. Airam Tripathi PROF 14(COMP METB)on 023 Albumin [Mass/Vol] 2.5 g/dL Critically low 3.4-5.0 [facility] Comment on above: Performed By: #### C MP, BNP ####[facility] [address]hip[address] [place], [place] [address]Dr. Airam Tripathi Albumin/Globulin [Mass ratio] 0.9 {ratio} Normal [facility] Comment on above: Performed By: #### C MP, BNP ####[facility] X[address] [place], [place] [address]Dr. Airam Tripathi ALP [Catalytic activity/Vol] 108 U/L Normal 46-116 [facility] Comment on above: Performed By: #### C MP, BNP ####[facility] [address]iz[address]rut[address] [place], [place] [address]Dr. Airam Tripathi ALT [Catalytic activity/Vol] 20 U/L Normal 14-59 [facility] Comment on above: Performed By: #### C MP, BNP ####[facility] W[address]inyqqon[address] [place], [place] [address]Dr. Airam Tripathi Anion gap [Moles/Vol] 10.4 mmol/L Normal [facility] Comment on above: Performed By: #### C MP, BNP ####[facility] G[address]bducawx[address] [place], [place] [address]Dr. Airam Tripathi AST [Catalytic activity/Vol] 20 U/L Normal 15-37 [facility] Comment on above: Performed By: #### C MP, BNP ####[facility] Y[address]eb[address] [place], [place] [address]Dr. Airam Tripathi Bilirubin [Mass/Vol] 0.2 mg/dL Normal 0.2-1.0 [facility] Comment on above: Performed By: #### C MP, BNP ####[facility] [address]ps[address] [place], [place] [address]Dr. Airam Tripathi Calcium [Mass/Vol] 8.0 mg/dL Critically low 8.5-10.1 [facility] Comment on above: Performed By: #### C MP, BNP ####[facility] Bfbxfhndao[address] [place], [place] [address]Dr. Selenaneil Tripathi Chloride [Moles/Vol] 100 mmol/L Normal 98-107 [facility] Comment on above: Performed By: #### C MP, BNP ####[facility] [address]xfgfodq[address] [place], [place] [address]Dr. Airam Tripathi CO2 [Moles/Vol] 28.6 mmol/L Normal 21.0-32.0 [facility] Comment on above: Performed By: #### C MP, BNP ####[facility] [address]fhpzx[address] [place], [place] [address]Dr. Airam Tripathi Creatinine [Mass/Vol] 1.66 mg/dL Critically high 0.55-1.02 [facility] Comment on above: Performed By: #### C MP, BNP ####[facility] [address]ix[address]heq[address] [place], [place] [address]Dr. Airam Tripathi EGFR-AF SLOVENIAN 38 mL/min/1.73m2 Critically low >=60 [facility] Comment on above: Performed By: #### C MP, BNP ####[facility] Iqv[address]givpa[address] [place] [address]Dr. Airam Tripathi EGFR-NON AF SLOVENIAN 32 mL/min/1.73m2 Critically low >=60 [facility] Comment on above: Performed By: #### C MP, BNP ####[facility] Fozoltwsln[address] [place], [place] [address]Dr. Airam Tripathi Globulin (S) [Mass/Vol] 2.8 g/dL Normal [facility] Comment on above: Performed By: #### C MP, BNP ####[facility] Ycatirutyn[address] [place], [place] [address]Dr. Airam Tripathi Glucose [Mass/Vol] 102 mg/dL Normal 74-106 [facility] Comment on above: Performed By: #### C MP, BNP ####[facility] [address]if[address]uvh[address] [place], [place] [address]Dr. Airam Tripathi Potassium [Moles/Vol] 5.0 mmol/L Normal 3.5-5.1 [facility] Comment on above: Performed By: #### C MP, BNP ####[facility] [address]gtq[address] [place], [place] [address]Dr. Airam Tripathi Protein [Mass/Vol] 5.3 g/dL Critically low 6.4-8.2 [facility] Comment on above: Performed By: #### C MP, BNP ####[facility] [address]qiw[address] [place], [place] [address]Dr. Airam Tripathi Sodium [Moles/Vol] 134 mmol/L Critically low 136-145 [facility] Comment on above: Performed By: #### C MP, BNP ####[facility] [address]ytla[address] [place], [place] [address]Dr. Airam Tripathi Urea nitrogen [Mass/Vol] 45.0 mg/dL Critically high 7.0-18.0 [facility] Comment on above: Performed By: #### C MP, BNP ####[facility] Uh[address]mp[address]ck[address] [place], [place] [address]Dr. Airam Tripathi Urea nitrogen/Creatinine [Mass ratio] 27.1 mg/mg Normal [facility] Comment on above: Performed By: #### C MP, BNP ####[facility] Mvscrpcien[address] [place] [address]Dr. Airam Tripathi BNPon 10-25-2022 Natriuretic peptide B (Bld) [Mass/Vol] 4569.0 pg/mL Critically high <=900.0 [facility] Comment on above: Performed By: #### C MP, BNP ####[facility] [address] [place], [place] [address]Dr. Airam Tripathi CBC AUTO DIFFon 10-25-2022 BASO # 0.0 103/ul Normal 0.0-0.1 [facility] Comment on above: Performed By: #### C BC ####[facility] [address] [place], [place] [address]Dr. Airam Tripathi Basophils/100 WBC (Bld) 0.5 % Normal 0.2-2.0 [facility] Comment on above: Performed By: #### C BC ####[facility] [address]mt[address] [place], [place] [address]DrKainna Tripathi EO # 0.3 103/ul Normal 0.0-0.7 [facility] Comment on above: Performed By: #### C BC ####[facility] [address] [place], [place] [address]DrKianna Tripathi Eosinophils/100 WBC (Bld) 5.6 % Normal 0.9-7.0 [facility] Comment on above: Performed By: #### C BC ####[facility] [address]ftcm[address] [place], [place] [address]DrKianna Tripathi Erythrocyte distribution width (RBC) [Ratio] 15.7 % Critically high 11.0-15.0 [facility] Comment on above: Performed By: #### C BC ####[facility] [address]fu[address] [place], [place] [address]DrKianna Tripathi Hematocrit (Bld) [Volume fraction] 30.1 % Critically low 36.0-48.0 [facility] Comment on above: Performed By: #### C BC ####[facility] [address] [place], [place] [address]DrKianna Tripathi Hemoglobin (Bld) [Mass/Vol] 9.2 g/dL Critically low 12.0-16.0 [facility] Comment on above: Performed By: #### C BC ####[facility] [address]bn[address] [place] [address]DrKianna Tripathi IG # 0.03 10e3/ul Normal 0.00-0.03 [facility] Comment on above: Performed By: #### C BC ####[facility] Nncbtthzds[address] [place] [address]DrKianna Tripathi IG % 0.5 % Normal 0.0-0.5 [facility] Comment on above: Performed By: #### C BC ####[facility] [address]hn[address] [place], [place] [address]DrKianna Tripathi LYMPH # 1.7 103/ul Normal 1.2-3.8 [facility] Comment on above: Performed By: #### C BC ####[facility] [address] [place], [place] [address]DrKianna Tripathi Lymphocytes/100 WBC (Bld) 28.9 % Normal 20.5-60.0 [facility] Comment on above: Performed By: #### C BC ####[facility] Gxsudfwogm[address] [place], [place] [address]DrKianna Selenaneil Tripathi MANUAL DIFF REQ NO Normal [facility] Comment on above: Performed By: #### C BC ####[facility] Pnhcvpgfot72[address] [place], [place] [address]DrKianna Tripathi MCH (RBC) [Entitic mass] 28.4 pg Normal 26.7-34.0 [facility] Comment on above: Performed By: #### C BC ####[facility] Zkwidizpbn800[address] [place], [place] [address]DrKianna Tripathi MCHC (RBC) [Mass/Vol] 30.6 g/dL Normal 29.9-35.2 [facility] Comment on above: Performed By: #### C BC ####[facility] Yvpyoiztkz7820[address] [place], [place] [address]DrKianna Tripathi MCV (RBC) [Entitic vol] 92.9 fL Normal 81.0-99.0 [facility] Comment on above: Performed By: #### C BC ####[facility] Fvbtzforwi987[address] [place], [place] [address]DrKianna Airam Tripathi MONO # 0.5 103/ul Normal 0.3-0.8 [facility] Comment on above: Performed By: #### C BC ####[facility] Jcaejkatrg37[address] [place], [place] [address]DrKianna Airam Deuce Monocytes/100 WBC (Bld) 8.5 % Normal 1.7-12.0 [facility] Comment on above: Performed By: #### C BC ####[facility] Szxqeosioq0035[address] [place], [place] [address]DrKianna Airam Tripathi NEUT # 3.2 103/ul Normal 1.4-6.5 [facility] Comment on above: Performed By: #### C BC ####[facility] Khbjnenszq4432[address] [place], [place] [address]DrKianna Airam Deuce Neutrophils/100 WBC (Bld) 56.0 % Normal 43.0-75.0 [facility] Comment on above: Performed By: #### C BC ####[facility] Xwewggoesx3035[address] [place], [place] [address]DrKianna Airam Deuce Platelet mean volume (Bld) [Entitic vol] 9.4 fL Critically low 9.5-13.5 [facility] Comment on above: Performed By: #### C BC ####[facility] Yzflqpdiyr1458[address] [place], [place] [address]DrKianna Airam Deuce PLT 272 103/ul Normal 150-450 [facility] Comment on above: Performed By: #### C BC ####[facility] Zlkkznivma6612[address] [place], [place] [address]DrKianna Tripathi RBC 3.24 106/ul Critically low 4.20-5.40 [facility] Comment on above: Performed By: #### C BC ####[facility] Zsefenanxn7116[address] [place], [place] [address]DrKianna Tripathi WBC 5.8 103/ul Normal 4.0-11.0 [facility] Comment on above: Performed By: #### C BC ####[facility] Rsckgwynrg6322 [place] [address]Dr. Airam Tripathi OSMOLALITYon 10-25-2022 Osmolality [Osmolality] 282 mosm/kg Normal 275-295 [facility] Comment on above: Performed By: #### O SMO ####[facility] Gtvzqattrh8894[address] [place], [place] [address]Dr. Airam Tripathi PROF 14(COMP METB)on 023 Albumin [Mass/Vol] 2.7 g/dL Critically low 3.4-5.0 [facility] Comment on above: Performed By: #### C MP, BNP ####[facility] Hyzzzbmron1709[address] [place], [place] [address]Dr. Airam Tripathi Albumin/Globulin [Mass ratio] 0.9 {ratio} Normal [facility] Comment on above: Performed By: #### C MP, BNP ####[facility] Wshfjdrgba9649[address] [place], [place] [address]Dr. Airam Tripathi ALP [Catalytic activity/Vol] 122 U/L Critically high 46-116 [facility] Comment on above: Performed By: #### C MP, BNP ####[facility] Fboynezwms7897[address] [place], [place] [address]Dr. Airam Tripathi ALT [Catalytic activity/Vol] 23 U/L Normal 14-59 [facility] Comment on above: Performed By: #### C MP, BNP ####[facility] Gouywwrghf0476[address] [place], [place] [address]Dr. Airam Tripathi Anion gap [Moles/Vol] 10.5 mmol/L Normal [facility] Comment on above: Performed By: #### C MP, BNP ####[facility] Uvmrdyzbpw8987[address] [place], [place] [address]Dr. Airam Tripathi AST [Catalytic activity/Vol] 22 U/L Normal 15-37 [facility] Comment on above: Performed By: #### C MP, BNP ####[facility] Zrwzqkphmj0512[address] [place], [place] [address]Dr. Airam Tripathi Bilirubin [Mass/Vol] 0.2 mg/dL Normal 0.2-1.0 [facility] Comment on above: Performed By: #### C MP, BNP ####[facility] Flxkjjseax987122 [address] [place], [place] [address]Dr. Airam Tripathi Calcium [Mass/Vol] 8.3 mg/dL Critically low 8.5-10.1 [facility] Comment on above: Performed By: #### C MP, BNP ####[facility] Mhyvkumeyg544[address] [place], [place] [address]Dr. Airam Tripathi Chloride [Moles/Vol] 102 mmol/L Normal 98-107 [facility] Comment on above: Performed By: #### C MP, BNP ####[facility] Dhpxztlasd3098[address] [place], [place] [address]Dr. Airam Tripathi CO2 [Moles/Vol] 29.7 mmol/L Normal 21.0-32.0 [facility] Comment on above: Performed By: #### C MP, BNP ####[facility] Myhisssyrb25[address] [place], [place] [address]Dr. Airam Tripathi Creatinine [Mass/Vol] 1.31 mg/dL Critically high 0.55-1.02 [facility] Comment on above: Performed By: #### C MP, BNP ####[facility] Ulvkjaugpr5985[address] [place], [place] [address]Dr. Airam Tripathi EGFR-AF SLOVENIAN 50 mL/min/1.73m2 Critically low >=60 [facility] Comment on above: Performed By: #### C MP, BNP ####[facility] Vjdkviseiw9200[address] [place], [place] [address]Dr. Airam Tripathi EGFR-NON AF SLOVENIAN 41 mL/min/1.73m2 Critically low >=60 [facility] Comment on above: Performed By: #### C MP, BNP ####[facility] Iissqwgsbs90232[address] [place], [place] [address]Dr. Airam Tripathi Globulin (S) [Mass/Vol] 2.9 g/dL Normal [facility] Comment on above: Performed By: #### C MP, BNP ####[facility] Ibbvzybazv65[address] [place] [address]Dr. Airam Tripathi Glucose [Mass/Vol] 94 mg/dL Normal 74-106 [facility] Comment on above: Performed By: #### C MP, BNP ####[facility] Lbghutchda0720[address] [place], [place] [address]Dr. Airam Tripathi Potassium [Moles/Vol] 4.2 mmol/L Normal 3.5-5.1 [facility] Comment on above: Performed By: #### C MP, BNP ####[facility] Upzqbsndcw9100[address] [place], [place] [address]Dr. Airam Tripathi Protein [Mass/Vol] 5.6 g/dL Critically low 6.4-8.2 [facility] Comment on above: Performed By: #### C MP, BNP ####[facility] Rvgarmmnja984222 [address] [place], [place] [address]Dr. Aiarm Tripathi Sodium [Moles/Vol] 138 mmol/L Normal 136-145 [facility] Comment on above: Performed By: #### C MP, BNP ####[facility] Qhhsiuoldj0976[address] [place], [place] [address]Dr. Airam Tripathi Urea nitrogen [Mass/Vol] 33.0 mg/dL Critically high 7.0-18.0 [facility] Comment on above: Performed By: #### C MP, BNP ####[facility] Sbzetmxtud033[address] [place], [place] [address]Dr. Airam Tripathi Urea nitrogen/Creatinine [Mass ratio] 25.2 mg/mg Normal [facility] Comment on above: Performed By: #### C MP, BNP ####[facility] Ywgrffixkf022[address] [place], [place] [address]Dr. Airam Tripathi BNPon 10-24-2022 Natriuretic peptide B (Bld) [Mass/Vol] 3805.0 pg/mL Critically high <=900.0 [facility] Comment on above: Performed By: #### H STROPN, BNP, CMP ####[facility] Itoipghbkx3249[address] [place], [place] [address]Dr. Airam Tripathi CBC AUTO DIFFon 10-24-2022 BASO # 0.0 103/ul Normal 0.0-0.1 [facility] Comment on above: Performed By: #### C BC ####[facility] Leesrwirlr495[address] [place] [address]Dr. Airam Tripathi Basophils/100 WBC (Bld) 0.3 % Normal 0.2-2.0 [facility] Comment on above: Performed By: #### C BC ####[facility] Kzontqdbwo280[address] [place], [place] [address]Dr. Selenaneil Tripathi EO # 0.3 103/ul Normal 0.0-0.7 [facility] Comment on above: Performed By: #### C BC ####[facility] Cosewwuiyv19112[address] [place], [place] [address]Dr. Airam Tripathi Eosinophils/100 WBC (Bld) 4.2 % Normal 0.9-7.0 [facility] Comment on above: Performed By: #### C BC ####[facility] Jnyvaprlne5109[address] [place], [place] [address]Dr. Airam Deuce Erythrocyte distribution width (RBC) [Ratio] 15.6 % Critically high 11.0-15.0 [facility] Comment on above: Performed By: #### C BC ####[facility] Vvlwkwzddz5715[address] [place], [place] [address]Dr. Airam Tripathi Hematocrit (Bld) [Volume fraction] 30.0 % Critically low 36.0-48.0 [facility] Comment on above: Performed By: #### C BC ####[facility] Dbbdeotnks0795[address] [place], [place] [address]Dr. Selenaneil Tripathi Hemoglobin (Bld) [Mass/Vol] 9.3 g/dL Critically low 12.0-16.0 [facility] Comment on above: Performed By: #### C BC ####[facility] Fkiajwmipc7976[address] [place], [place] [address]Dr. Airam Tripathi IG # 0.03 10e3/ul Normal 0.00-0.03 [facility] Comment on above: Performed By: #### C BC ####[facility] Sciouaaqvy[address] [place], [place] [address]Dr. Airam Tripathi IG % 0.5 % Normal 0.0-0.5 [facility] Comment on above: Performed By: #### C BC ####[facility] Higvhmvbdv44[address] [place] [address]Dr. Airam Tripathi LYMPH # 1.4 103/ul Normal 1.2-3.8 [facility] Comment on above: Performed By: #### C BC ####[facility] Svpngcayem8734 [place] [address]Dr. Airam Tripathi Lymphocytes/100 WBC (Bld) 22.5 % Normal 20.5-60.0 [facility] Comment on above: Performed By: #### C BC ####[facility] Yolwhfaamw4584[address] [place], [place] [address]DrKianna Tripathi MANUAL DIFF REQ NO Normal [facility] Comment on above: Performed By: #### C BC ####[facility] Porjdxdhfq8117[address] [place], [place] [address]Dr. Selenaneil Tripathi MCH (RBC) [Entitic mass] 28.7 pg Normal 26.7-34.0 [facility] Comment on above: Performed By: #### C BC ####[facility] Dguujtlvwe9207[address] [place], [place] [address]Dr. Selenaneil Tripathi MCHC (RBC) [Mass/Vol] 31.0 g/dL Normal 29.9-35.2 [facility] Comment on above: Performed By: #### C BC ####[facility] Pmmibltnkv4154[address] [place], [place] [address]DrKianna Tripathi MCV (RBC) [Entitic vol] 92.6 fL Normal 81.0-99.0 [facility] Comment on above: Performed By: #### C BC ####[facility] Ywzdbtpeyp8724[address] [place], [place] [address]DrKianna Tripathi MONO # 0.4 103/ul Normal 0.3-0.8 [facility] Comment on above: Performed By: #### C BC ####[facility] Wmkudaxqkj1327[address] [place], [place] [address]DrKianna Tripathi Monocytes/100 WBC (Bld) 7.3 % Normal 1.7-12.0 [facility] Comment on above: Performed By: #### C BC ####[facility] Urimfoxsqs87[address] [place] [id number]. Airam Tripathi NEUT # 3.9 103/ul Normal 1.4-6.5 [facility] Comment on above: Performed By: #### C BC ####[facility] Fojapejnkf2491 [place] [id number] Airam Tripathi Neutrophils/100 WBC (Bld) 65.2 % Normal 43.0-75.0 [facility] Comment on above: Performed By: #### C BC ####[facility] Zpihvlpkws5[address] [place] [address]DrKianna Airam Tripathi Platelet mean volume (Bld) [Entitic vol] 9.0 fL Critically low 9.5-13.5 [facility] Comment on above: Performed By: #### C BC ####[facility] Gnrpnkybqy[address] [place], [place] [address]Dr. Airam Tripathi PLT 247 103/ul Normal 150-450 [facility] Comment on above: Performed By: #### C BC ####[facility] Xvyuesqgsi55[address] [place], [place] [address]DrKianna Airam Tripathi RBC 3.24 106/ul Critically low 4.20-5.40 [facility] Comment on above: Performed By: #### C BC ####[facility] Bnmcvrfdqv7[address] [place], [place] [address]DrKianna Airam Deuce WBC 6.0 103/ul Normal 4.0-11.0 [facility] Comment on above: Performed By: #### C BC ####[facility] Ymncyinaxy[address] [place], [place] [address]DrKianna Airam Deuce CULTURE URINEon 10-24-2022 CULTURE URINE Culture Observations : LIGHT GROWTH OF MIXED GENITAL GREGORY. NO POTENTIAL PATHOGENS SEEN. Normal [facility] Comment on above: Performed By: #### U RCX ####[facility] Ftbnygcxgd9[address] [place], [place] [address]DrKianna Tripathi POINT OF CARE GLUCOSEon Glucose [Mass/Vol] 118 mg/dL Critically high 74-106 [facility] Comment on above: Performed By: #### P OCGLUC ####[facility] Imrejfauij[address] [place] [address]Dr. Airam Tripathi PROF 14(COMP METB)on 023 Albumin [Mass/Vol] 3.1 g/dL Critically low 3.4-5.0 [facility] Comment on above: Performed By: #### H STROPN, BNP, CMP ####[facility] Nuobxgrgjx4278 [place] [address]Dr. Airam Tripathi Albumin/Globulin [Mass ratio] 1.0 {ratio} Normal [facility] Comment on above: Performed By: #### H STROPN, BNP, CMP ####[facility] Avzflhtrib36[address] [place] [address]Dr. Airam Tripathi ALP [Catalytic activity/Vol] 131 U/L Critically high 46-116 [facility] Comment on above: Performed By: #### H STROPN, BNP, CMP ####[facility] Zfestatdjy37[address] [place] [address]Dr. Airam Tripathi ALT [Catalytic activity/Vol] 26 U/L Normal 14-59 [facility] Comment on above: Performed By: #### H STROPN, BNP, CMP ####[facility] Etppzrousk4[address] [place] [address]Dr. Airam Tripathi Anion gap [Moles/Vol] 11.2 mmol/L Normal [facility] Comment on above: Performed By: #### H STROPN, BNP, CMP ####[facility] Kugwghysex7198 [place] [address]Dr. Airam Tripathi AST [Catalytic activity/Vol] 31 U/L Normal 15-37 [facility] Comment on above: Performed By: #### H STROPN, BNP, CMP ####[facility] Hfjkpxpokp08[address] [place] [address]Dr. Airam Tripathi Bilirubin [Mass/Vol] 0.2 mg/dL Normal 0.2-1.0 [facility] Comment on above: Performed By: #### H STROPN, BNP, CMP ####[facility] Ambiphbgtd6906 [place] [address]Dr. Airam Tripathi Calcium [Mass/Vol] 8.6 mg/dL Normal 8.5-10.1 [facility] Comment on above: Performed By: #### H STROPN, BNP, CMP ####[facility] Bkugggkrqv5365 [place] [address]Dr. Airam Tripathi Chloride [Moles/Vol] 102 mmol/L Normal 98-107 [facility] Comment on above: Performed By: #### H STROPN, BNP, CMP ####[facility] Mymlzzcquf6[address] [place], [place] [address]Dr. Airam Tripathi CO2 [Moles/Vol] 27.4 mmol/L Normal 21.0-32.0 [facility] Comment on above: Performed By: #### H STROPN, BNP, CMP ####[facility] Yttigfsnju04[address] [place], [place] [address]Dr. Airam Tripathi Creatinine [Mass/Vol] 1.23 mg/dL Critically high 0.55-1.02 [facility] Comment on above: Performed By: #### H STROPN, BNP, CMP ####[facility] Lawgxmbnps224[address] [place], [place] [address]Dr. Airam Tripathi EGFR-AF SLOVENIAN 54 mL/min/1.73m2 Critically low >=60 [facility] Comment on above: Performed By: #### H STROPN, BNP, CMP ####[facility] Euustklbxh6027[address] [place], [place] [address]Dr. Airam Tripathi EGFR-NON AF SLOVENIAN 45 mL/min/1.73m2 Critically low >=60 [facility] Comment on above: Performed By: #### H STROPN, BNP, CMP ####[facility] Feeihildzf7239[address] [place], [place] [address]Dr. Airam Tripathi Globulin (S) [Mass/Vol] 3.1 g/dL Normal [facility] Comment on above: Performed By: #### H STROPN, BNP, CMP ####[facility] Efnihnnpko47[address] [place] [address]Dr. Airam Tripathi Glucose [Mass/Vol] 90 mg/dL Normal 74-106 [facility] Comment on above: Performed By: #### H STROPN, BNP, CMP ####[facility] Vgogpgtvbz4532 [place] [address]Dr. Airam Tripathi Potassium [Moles/Vol] 5.6 mmol/L Critically high 3.5-5.1 [facility] Comment on above: Performed By: #### H STROPN, BNP, CMP ####[facility] Jqimwwozaa7[address] [place] [address]Dr. Airam Tripathi Protein [Mass/Vol] 6.2 g/dL Critically low 6.4-8.2 [facility] Comment on above: Performed By: #### H STROPN, BNP, CMP ####[facility] Vozhzfvmqj0318 [place] [address]Dr. Airam Tripathi Sodium [Moles/Vol] 135 mmol/L Critically low 136-145 [facility] Comment on above: Performed By: #### H STROPN, BNP, CMP ####[facility] Unbkyhgsjn2000 [place] [address]Dr. Airam Tripathi Urea nitrogen [Mass/Vol] 38.0 mg/dL Critically high 7.0-18.0 [facility] Comment on above: Performed By: #### H STROPN, BNP, CMP ####[facility] Arkmskkrty85[address] [place] [address]Dr. Airam Tripathi Urea nitrogen/Creatinine [Mass ratio] 30.9 mg/mg Normal [facility] Comment on above: Performed By: #### H STROPN, BNP, CMP ####[facility] Wmkzrvkvln6117 [place] [address]Dr. Airam Tripathi TROPONIN, HIGH SENSITIVITYon 10-24-2022 HSTROP 8.0 pg/mL Normal 4.0-51.3 [facility] Comment on above: Result Comment: CUT- OFF POINTS HAVE BEEN ESTABLISHED BASED ON THE FOURTH UNIVERSAL DEFINITIONS OF MYOCARDIALINFARCTION. THE UPPER REFERENCE LIMIT (URL) OF TROPONIN, DEFINED THE 99TH PERCENTILE OFcTnI DISTRIBUTION IN A REFERENCE POPULATION, HAS BEEN CONFIRMED THE DECISION THRESHOLDFOR GA DIAGNOSIS. Performed By: #### H STROPN, BNP, CMP ####[facility] Qlcujotdnl8099 [place] [address]Dr. Airam Tripathi UA RANDOM W/MICROSCOPICon BACTERIA NONE SEEN Normal NONE SEEN [facility] Comment on above: Performed By: #### U AMIC ####[facility] Kaoztuoykj195[address] [place], [place] [address]Dr. Airam Tripathi Bilirubin Ql (U) Negative Normal NEGATIVE [facility] Comment on above: Performed By: #### U AMIC ####[facility] Zoofgkiarv109[address] [place], [place] [address]Dr. Airam Tripathi CAST NONE SEEN Normal NONE SEEN [facility] Comment on above: Performed By: #### U AMIC ####[facility] Pbuwtbwmvc2956[address] [place], [place] [address]Dr. Airam Tripathi Clarity (U) CLEAR Normal CLEAR [facility] Comment on above: Performed By: #### U AMIC ####[facility] Ifyfwnnxco4788[address] [place], [place] [address]Dr. Airam Tripathi Color (U) LT. YELLOW Normal YELLOW [facility] Comment on above: Performed By: #### U AMIC ####[facility] Xnmmnibfjn4220[address] [place], [place] [address]Dr. Airam Tripathi Crystals LM Nom (Urine sed) NONE SEEN Normal NONE SEEN [facility] Comment on above: Performed By: #### U AMIC ####[facility] Sywrbtjkfb959[address] [place], [place] [address]Dr. Airam Tripathi Epithelial cells LM Ql (Urine sed) RARE Normal NONE SEEN /RARE [facility] Comment on above: Performed By: #### U AMIC ####[facility] Icwkmcmypy664[address] [place], [place] [address]Dr. Airam Tripathi Glucose Ql (U) Negative Normal NEGATIVE [facility] Comment on above: Performed By: #### U AMIC ####[facility] Edymppqaam1414[address] [place], [place] [address]Dr. Airam Tripathi Hemoglobin Ql (U) Negative Normal NEGATIVE [facility] Comment on above: Performed By: #### U AMIC ####[facility] Kaizuzjhwf3312[address] [place], [place] [address]Dr. Airam Tripathi Ketones Ql (U) Negative Normal NEGATIVE [facility] Comment on above: Performed By: #### U AMIC ####[facility] Hccoqwjdvz7[address] [place], [place] [address]Dr. Airam Tripathi LEUKOCYTES Negative Normal NEGATIVE [facility] Comment on above: Performed By: #### U AMIC ####[facility] Qzgdvrguap0915[address] [place], [place] [address]Dr. Airam Deuce MUCOUS NONE SEEN Normal NONE SEEN [facility] Comment on above: Performed By: #### U AMIC ####[facility] Pzfivubudy01[address] [place], [place] [address]Dr. Airam Tripathi Nitrite Ql (U) Negative Normal NEGATIVE [facility] Comment on above: Performed By: #### U AMIC ####[facility] Zalotgatlq817[address] [place], [place] [address]Dr. Selenaneil Tripathi pH (U) 7.0 [pH] Normal 5-9 [facility] Comment on above: Performed By: #### U AMIC ####[facility] Tngzzvuicy3694[address] [place], [place] [address]Dr. Airam Tripathi RBC 0-2 Normal 0-2 [facility] Comment on above: Performed By: #### U AMIC ####[facility] Pyazegfgyw2794[address] [place], [place] [address]Dr. Airam Tripathi SPEC GRAVITY 1.015 Normal 1.005-<=1.02 5 [facility] Comment on above: Performed By: #### U AMIC ####[facility] Fjmxrsnxdf037[address] [place], [place] [address]Dr. Airam Tripathi UA PROTEIN Negative Normal NEGATIVE/ TRACE [facility] Comment on above: Performed By: #### U AMIC ####[facility] Obawwwnzoa516[address] [place], [place] [address]Dr. Airma Tripathi Urobilinogen Qn (U) 0.2 {Ligia'U}/dL Normal 0.2 - 1. 0 [facility] Comment on above: Performed By: #### U AMIC ####[facility] Qdxibfmzra5247 [place] [address]Dr. Airam Tripathi WBC NONE SEEN Normal NONE SEEN [facility] Comment on above: Performed By: #### U AMIC ####[facility] Tqfczdqyfu5238 [place] [address]Dr. Airam Tripathi XR CHEST 1 Von 10-24-2022 XR CHEST 1 V Normal [facility] CBC AUTO DIFFon 10-19-2022 BASO # 0.0 103/ul Normal 0.0-0.1 [facility] Comment on above: Performed By: #### C BC ####[facility] Uxquhihabq044[address] [place], [place] [address]Dr. Airam Tripathi Basophils/100 WBC (Bld) 0.5 % Normal 0.2-2.0 [facility] Comment on above: Performed By: #### C BC ####[facility] Rwkbjaoyko1179[address] [place], [place] [address]Dr. Airam Tripathi EO # 0.3 103/ul Normal 0.0-0.7 [facility] Comment on above: Performed By: #### C BC ####[facility] Cpzrgyuakb5469[address] [place], [place] [address]Dr. Selenaneil Tripathi Eosinophils/100 WBC (Bld) 3.3 % Normal 0.9-7.0 [facility] Comment on above: Performed By: #### C BC ####[facility] Egnbgsxjsl480[address] [place], [place] [address]Dr. Airam Tripathi Erythrocyte distribution width (RBC) [Ratio] 15.0 % Normal 11.0-15.0 [facility] Comment on above: Performed By: #### C BC ####[facility] Iunppqzear6401[address] [place], [place] [address]Dr. Airam Tripathi Hematocrit (Bld) [Volume fraction] 32.9 % Critically low 36.0-48.0 [facility] Comment on above: Performed By: #### C BC ####[facility] Dnqazfpnsv1735 [place] [address]Dr. Airam Tripathi Hemoglobin (Bld) [Mass/Vol] 10.1 g/dL Critically low 12.0-16.0 [facility] Comment on above: Performed By: #### C BC ####[facility] Avzfazeitx0[address] [place] [address]Dr. Airam Tripathi IG # 0.04 10e3/ul Critically high 0.00-0.03 [facility] Comment on above: Performed By: #### C BC ####[facility] Fshvnnxiyk24[address] [place], [place] [address]Dr. Airam Tripathi IG % 0.5 % Normal 0.0-0.5 [facility] Comment on above: Performed By: #### C BC ####[facility] Mzetnlxawd60[address] [place], [place] [address]Dr. Selenaneil Tripathi LYMPH # 1.5 103/ul Normal 1.2-3.8 [facility] Comment on above: Performed By: #### C BC ####[facility] Jrgqiqsxkc4925[address] [place], [place] [address]Dr. Airam Tripathi Lymphocytes/100 WBC (Bld) 18.1 % Critically low 20.5-60.0 [facility] Comment on above: Performed By: #### C BC ####[facility] Odovflktmm0645[address] [place], [place] [address]Dr. Selenaneil Tripathi MANUAL DIFF REQ NO Normal [facility] Comment on above: Performed By: #### C BC ####[facility] Sxhajftyho5[address] [place], [place] [address]Dr. Airam Tripathi MCH (RBC) [Entitic mass] 28.3 pg Normal 26.7-34.0 [facility] Comment on above: Performed By: #### C BC ####[facility] Cjlapujjfv9[address] [place], [place] [address]Dr. Airam Tripathi MCHC (RBC) [Mass/Vol] 30.7 g/dL Normal 29.9-35.2 [facility] Comment on above: Performed By: #### C BC ####[facility] Zidsjualry55[address] [place] [id number]. Airam Tripathi MCV (RBC) [Entitic vol] 92.2 fL Normal 81.0-99.0 [facility] Comment on above: Performed By: #### C BC ####[facility] Zrjmxnkklu5050 [place] [id number]. Airam Tripathi MONO # 0.7 103/ul Normal 0.3-0.8 [facility] Comment on above: Performed By: #### C BC ####[facility] Wsrxpsfpsd4777 [place] [id number]. Airam Tripathi Monocytes/100 WBC (Bld) 7.7 % Normal 1.7-12.0 [facility] Comment on above: Performed By: #### C BC ####[facility] Dnkx[address]gi[address] [place], [place] [address]Dr. Airam Tripathi NEUT # 5.9 103/ul Normal 1.4-6.5 [facility] Comment on above: Performed By: #### C BC ####[facility] Clfuwlmtgk8801 [place] [id number]. Airam Tripathi Neutrophils/100 WBC (Bld) 69.9 % Normal 43.0-75.0 [facility] Comment on above: Performed By: #### C BC ####[facility] Whxqoypcob0863 [place] [id number]. Airam Tripathi Platelet mean volume (Bld) [Entitic vol] 9.3 fL Critically low 9.5-13.5 [facility] Comment on above: Performed By: #### C BC ####[facility] Qjqvkeictc2958 [place] [id number]. Airam Tripathi PLT 293 103/ul Normal 150-450 [facility] Comment on above: Performed By: #### C BC ####[facility] Mqicucgjai9655 [place] [phone]. Airam Tripathi RBC 3.57 106/ul Critically low 4.20-5.40 [facility] Comment on above: Performed By: #### C BC ####[facility] Qhihoosihk6810 [place] [address]Dr. Airam Tripathi WBC 8.4 103/ul Normal 4.0-11.0 [facility] Comment on above: Performed By: #### C BC ####[facility] Eknfrwcnyo[address] [place], [place] [address]Dr. Airam Tripathi PROF 14(COMP METB)on 023 Albumin [Mass/Vol] 3.1 g/dL Critically low 3.4-5.0 [facility] Comment on above: Performed By: #### C MP ####[facility] Hfhebkrktg[address] [place], [place] [address]Dr. Airam Tripathi Albumin/Globulin [Mass ratio] 0.9 {ratio} Normal [facility] Comment on above: Performed By: #### C MP ####[facility] Nwdljvdjcw74[address] [place], [place] [address]Dr. Airam Tripathi ALP [Catalytic activity/Vol] 117 U/L Critically high 46-116 [facility] Comment on above: Performed By: #### C MP ####[facility] Fvugosudde4[address] [place], [place] [address]Dr. Airam Tripathi ALT [Catalytic activity/Vol] 24 U/L Normal 14-59 [facility] Comment on above: Performed By: #### C MP ####[facility] Ccmouwdkvu4358[address] [place], [place] [address]Dr. Airam Tripathi Anion gap [Moles/Vol] 11.1 mmol/L Normal [facility] Comment on above: Performed By: #### C MP ####[facility] Nwyfujphro26[address] [place], [place] [address]Dr. Airam Tripathi AST [Catalytic activity/Vol] 22 U/L Normal 15-37 [facility] Comment on above: Performed By: #### C MP ####[facility] Gxltqjmlst99[address] [place], [place] [address]Dr. Airam Tripathi Bilirubin [Mass/Vol] 0.2 mg/dL Normal 0.2-1.0 [facility] Comment on above: Performed By: #### C MP ####[facility] Dszdsrpapg3835 [place] [id number]. Airam Tripathi Calcium [Mass/Vol] 8.4 mg/dL Critically low 8.5-10.1 [facility] Comment on above: Performed By: #### C MP ####[facility] Cdlzrpkyao9016 [place] [phone]. Airam Tripathi Chloride [Moles/Vol] 103 mmol/L Normal 98-107 [facility] Comment on above: Performed By: #### C MP ####[facility] Oxmqjpxsbn6689 [place] [address]Dr. Airam Tripathi CO2 [Moles/Vol] 25.0 mmol/L Normal 21.0-32.0 [facility] Comment on above: Performed By: #### C MP ####[facility] Qmyiwwubgy7419[address] [place], [place] [address]Dr. Airam Tripathi Creatinine [Mass/Vol] 1.27 mg/dL Critically high 0.55-1.02 [facility] Comment on above: Performed By: #### C MP ####[facility] Igwitvnctb2790 [place] [phone]. Airam Tripathi EGFR-AF SLOVENIAN 52 mL/min/1.73m2 Critically low >=60 [facility] Comment on above: Performed By: #### C MP ####[facility] Anhssrnbuz05[address] [place], [place] [address]Dr. Airam Tripathi EGFR-NON AF SLOVENIAN 43 mL/min/1.73m2 Critically low >=60 [facility] Comment on above: Performed By: #### C MP ####[facility] Cxiiowudip3058 [place] [phone]. Airam Tripathi Globulin (S) [Mass/Vol] 3.3 g/dL Normal [facility] Comment on above: Performed By: #### C MP ####[facility] Hlnpcpcpwx1735 [place] [address]Dr. Airam Tripathi Glucose [Mass/Vol] 90 mg/dL Normal 74-106 [facility] Comment on above: Performed By: #### C MP ####[facility] Oncmecdnch8271 [place] [address]Dr. Airam Tripathi Potassium [Moles/Vol] 5.1 mmol/L Normal 3.5-5.1 [facility] Comment on above: Performed By: #### C MP ####[facility] Cfokmlwoip1126 [place] [address]Dr. Airam Tripathi Protein [Mass/Vol] 6.4 g/dL Normal 6.4-8.2 [facility] Comment on above: Performed By: #### C MP ####[facility] Mufomlagwh3304[address] [place], [place] [address]Dr. Airam Tripathi Sodium [Moles/Vol] 134 mmol/L Critically low 136-145 [facility] Comment on above: Performed By: #### C MP ####[facility] Udoeysvaxl20[address] [place], [place] [address]Dr. Airam Tripathi Urea nitrogen [Mass/Vol] 33.0 mg/dL Critically high 7.0-18.0 [facility] Comment on above: Performed By: #### C MP ####[facility] Cpjhoiparp1630[address] [place], [place] [address]Dr. Airam Tripathi Urea nitrogen/Creatinine [Mass ratio] 26.0 mg/mg Normal [facility] Comment on above: Performed By: #### C MP ####[facility] Dnkmeqxwkn08[address] [place], [place] [address]Dr. Airam Tripathi OSMOLALITYon 10-15-2022 Osmolality [Osmolality] 272 mosm/kg Critically low 275-295 [facility] Comment on above: Performed By: #### O SMO ####[facility] Hyjpqiaqkc9040[address] [place], [place] [address]Dr. Airam Tripathi BNPon 10-12-2022 Natriuretic peptide B (Bld) [Mass/Vol] 1337.0 pg/mL Critically high <=900.0 [facility] Comment on above: Performed By: #### B INSTRUMENT MAKER AND REPAIRER ####[facility] Siovccijhj548[address] [place], [place] [address]Dr. Airam Tripathi CBC AUTO DIFFon 10-12-2022 BASO # 0.0 103/ul Normal 0.0-0.1 [facility] Comment on above: Performed By: #### C BC ####[facility] Vjtqqgeyck6562 [place] [address]Dr. Airam Tripathi Basophils/100 WBC (Bld) 0.6 % Normal 0.2-2.0 [facility] Comment on above: Performed By: #### C BC ####[facility] Rjlfhoygrw9560[address] [place], [place] [address]Dr. Airam Tripathi EO # 0.2 103/ul Normal 0.0-0.7 [facility] Comment on above: Performed By: #### C BC ####[facility] Htganolqvl119[address] [place], [place] [address]Dr. Airam Tripathi Eosinophils/100 WBC (Bld) 2.3 % Normal 0.9-7.0 [facility] Comment on above: Performed By: #### C BC ####[facility] Idsholrzze1267[address] [place], [place] [address]Dr. Airam Tripathi Erythrocyte distribution width (RBC) [Ratio] 15.1 % Critically high 11.0-15.0 [facility] Comment on above: Performed By: #### C BC ####[facility] Rieuoyufsg6225[address] [place], [place] [address]Dr. Airam Tripathi Hematocrit (Bld) [Volume fraction] 35.9 % Critically low 36.0-48.0 [facility] Comment on above: Performed By: #### C BC ####[facility] Lmgweqkfgc0835[address] [place], [place] [address]Dr. Airam Tripathi Hemoglobin (Bld) [Mass/Vol] 11.4 g/dL Critically low 12.0-16.0 [facility] Comment on above: Performed By: #### C BC ####[facility] Imujltaojo7364[address] [place], [place] [address]Dr. Airam Tripathi IG # 0.03 10e3/ul Normal 0.00-0.03 [facility] Comment on above: Performed By: #### C BC ####[facility] Jilcjqhujh9954[address] [place], [place] [address]Dr. Airam Tripathi IG % 0.5 % Normal 0.0-0.5 [facility] Comment on above: Performed By: #### C BC ####[facility] Iksvwiihhz5883 [place] [address]DrKianna Tripathi LYMPH # 1.1 103/ul Critically low 1.2-3.8 [facility] Comment on above: Performed By: #### C BC ####[facility] Qyewjqjnsm8452 [place] [address]Dr. Airam Tripathi Lymphocytes/100 WBC (Bld) 17.2 % Critically low 20.5-60.0 [facility] Comment on above: Performed By: #### C BC ####[facility] Ewwguanxqt5203 [place] [address]DrKianna Tripathi MANUAL DIFF REQ NO Normal [facility] Comment on above: Performed By: #### C BC ####[facility] Wawglaryhc[address] [place], [place] [address]Dr. Airam Tripathi MCH (RBC) [Entitic mass] 28.8 pg Normal 26.7-34.0 [facility] Comment on above: Performed By: #### C BC ####[facility] Uaahhgqktn450[address] [place], [place] [address]Dr. Airam Tripathi MCHC (RBC) [Mass/Vol] 31.8 g/dL Normal 29.9-35.2 [facility] Comment on above: Performed By: #### C BC ####[facility] Hdgzbtdloq0671 [place] [address]DrKianna Tripathi MCV (RBC) [Entitic vol] 90.7 fL Normal 81.0-99.0 [facility] Comment on above: Performed By: #### C BC ####[facility] Uilhbzdpoa258[address] [place], [place] [address]DrKianna Tripathi MONO # 0.5 103/ul Normal 0.3-0.8 [facility] Comment on above: Performed By: #### C BC ####[facility] Odewocupsc3774 [place] [address]DrKianna Tripathi Monocytes/100 WBC (Bld) 7.7 % Normal 1.7-12.0 [facility] Comment on above: Performed By: #### C BC ####[facility] Gebenbnurz5002 [place] [address]Dr. Airam Tripathi NEUT # 4.7 103/ul Normal 1.4-6.5 [facility] Comment on above: Performed By: #### C BC ####[facility] Vilubhiboj1445 [place] [phone] Waltersneil Deuce Neutrophils/100 WBC (Bld) 71.7 % Normal 43.0-75.0 [facility] Comment on above: Performed By: #### C BC ####[facility] Pjbgoezlky8620 [place] [address]Dr. Airam Tripathi Platelet mean volume (Bld) [Entitic vol] 8.2 fL Critically low 9.5-13.5 [facility] Comment on above: Performed By: #### C BC ####[facility] Sagxjnpaen7051 [place] [address]Dr. Airam Tripathi PLT 292 103/ul Normal 150-450 [facility] Comment on above: Performed By: #### C BC ####[facility] Mfcixeswtf1319[address] [place], [place] [address]Dr. Airam Tripathi RBC 3.96 106/ul Critically low 4.20-5.40 [facility] Comment on above: Performed By: #### C BC ####[facility] Ratwdiynpu6296 [place] [address]Dr. Airam Tripathi WBC 6.6 103/ul Normal 4.0-11.0 [facility] Comment on above: Performed By: #### C BC ####[facility] Qxszxjciyp1581 [place] [phone] Tripathi PROF 14(COMP METB)on 023 Albumin [Mass/Vol] 3.3 g/dL Critically low 3.4-5.0 [facility] Comment on above: Performed By: #### C MP ####[facility] Sryricthcu4539 [place] [address]DrKianna Tripathi Albumin/Globulin [Mass ratio] 0.9 {ratio} Normal [facility] Comment on above: Performed By: #### C MP ####[facility] Qqpqmtwdpd1382 [place] [address]Dr. Airam Deuce ALP [Catalytic activity/Vol] 130 U/L Critically high 46-116 [facility] Comment on above: Performed By: #### C MP ####[facility] Qifaylgwfr3611 [place] [address]Dr. Airam Deuce ALT [Catalytic activity/Vol] 23 U/L Normal 14-59 [facility] Comment on above: Performed By: #### C MP ####[facility] Tgxmkxsckm9757[address] [place], [place] [address]Dr. Airam Tripathi Anion gap [Moles/Vol] 11.7 mmol/L Normal [facility] Comment on above: Performed By: #### C MP ####[facility] Banzezixtj5548[address] [place], [place] [address]Dr. Selenaneil Tripathi AST [Catalytic activity/Vol] 23 U/L Normal 15-37 [facility] Comment on above: Performed By: #### C MP ####[facility] Zhgrtwycdr713722 [address] [place], [place] [address]Dr. Selenaneil Deuce Bilirubin [Mass/Vol] 0.3 mg/dL Normal 0.2-1.0 [facility] Comment on above: Performed By: #### C MP ####[facility] Svexguybjv715[address] [place], [place] [address]Dr. Airam Tripathi Calcium [Mass/Vol] 8.7 mg/dL Normal 8.5-10.1 [facility] Comment on above: Performed By: #### C MP ####[facility] Etgliazdme544[address] [place], [place] [address]Dr. Aiarm Tripathi Chloride [Moles/Vol] 99 mmol/L Normal 98-107 [facility] Comment on above: Performed By: #### C MP ####[facility] Buqnqxnpds03[address] [place], [place] [address]Dr. Airam Tripathi CO2 [Moles/Vol] 28.5 mmol/L Normal 21.0-32.0 [facility] Comment on above: Performed By: #### C MP ####[facility] Upasvbvbwl5719 [place] [address]Dr. Airam Tripathi Creatinine [Mass/Vol] 1.06 mg/dL Critically high 0.55-1.02 [facility] Comment on above: Performed By: #### C MP ####[facility] Wnbgjebrdm1821 [place] [address]Dr. Airam Deuce EGFR-AF SLOVENIAN >60 Normal >=60 [facility] Comment on above: Performed By: #### C MP ####[facility] Qyysgbonll7206 [place] [address]Dr. Airam Deuce EGFR-NON AF SLOVENIAN 53 mL/min/1.73m2 Critically low >=60 [facility] Comment on above: Performed By: #### C MP ####[facility] Ogfjtmlofi1159[address] [place], [place] [address]Dr. Selenaneil Tripathi Globulin (S) [Mass/Vol] 3.5 g/dL Normal [facility] Comment on above: Performed By: #### C MP ####[facility] Swymgrqtvd261122 [address] [place], [place] [address]Dr. Airam Deuce Glucose [Mass/Vol] 79 mg/dL Normal 74-106 [facility] Comment on above: Performed By: #### C MP ####[facility] Csntajkrxs3166[address] [place], [place] [address]Dr. Airam Tripathi Potassium [Moles/Vol] 4.2 mmol/L Normal 3.5-5.1 [facility] Comment on above: Performed By: #### C MP ####[facility] Dsxkgcfopu3415[address] [place], [place] [address]Dr. Airam Tripathi Protein [Mass/Vol] 6.8 g/dL Normal 6.4-8.2 [facility] Comment on above: Performed By: #### C MP ####[facility] Czeoyfrdko2916[address] [place], [place] [address]Dr. Airam Tripathi Sodium [Moles/Vol] 135 mmol/L Critically low 136-145 [facility] Comment on above: Performed By: #### C MP ####[facility] Xmuomtsssr4815[address] [place], [place] [address]Dr. Airam Tripathi Urea nitrogen [Mass/Vol] 16.0 mg/dL Normal 7.0-18.0 [facility] Comment on above: Performed By: #### C MP ####[facility] Ddeckotsgw9954[address] [place], [place] [address]Dr. Airam Tripathi Urea nitrogen/Creatinine [Mass ratio] 15.1 mg/mg Normal [facility] Comment on above: Performed By: #### C MP ####[facility] Jlqkhgxcqk4045[address] [place], [place] [address]Dr. Airam Tripathi XR CHEST 1 Von 10-12-2022 XR CHEST 1 V Normal [facility] PRBC LEUKOREDUCEDon 10-10-19 PRBC LEUKOREDUCED Normal [facility] Comment on above: Performed By: #### P RBC ####[facility] Lkinutkuwt7326[address] [place], [place] [address]Dr. Airam Tripathi CULTURE URINEon 10-08-2022 CULTURE URINE Normal [facility] Comment on above: Performed By: #### U RCX ####[facility] Xlitfrgvdw0470[address] [place], [place] [address]Dr. Airam Tripathi OSMOLALITYon 10-08-2022 Osmolality [Osmolality] 282 mosm/kg Normal 275-295 [facility] Comment on above: Performed By: #### O SMO ####[facility] Jjfkjoftiq8858[address] [place], [place] [address]Dr. Airam Tripathi CBC AUTO DIFFon 10-07-2022 BASO # 0.0 103/ul Normal 0.0-0.1 [facility] Comment on above: Performed By: #### C BC ####[facility] Xdnhbhureo7144[address] [place], [place] [address]Dr. Airam Tripathi Basophils/100 WBC (Bld) 0.3 % Normal 0.2-2.0 [facility] Comment on above: Performed By: #### C BC ####[facility] Uiwdlrciyd2515[address] [place], [place] [address]Dr. Airam Tripathi EO # 0.2 103/ul Normal 0.0-0.7 [facility] Comment on above: Performed By: #### C BC ####[facility] Gfysajplhv4810 [place] [address]Dr. Airam Tripathi Eosinophils/100 WBC (Bld) 3.4 % Normal 0.9-7.0 [facility] Comment on above: Performed By: #### C BC ####[facility] Ktxdkuapfq7112[address] [place], [place] [address]Dr. Selenaneil Deuce Erythrocyte distribution width (RBC) [Ratio] 15.2 % Critically high 11.0-15.0 [facility] Comment on above: Performed By: #### C BC ####[facility] Ypbccxccuv9385[address] [place], [place] [address]Dr. Airam Tripathi Hematocrit (Bld) [Volume fraction] 31.3 % Critically low 36.0-48.0 [facility] Comment on above: Performed By: #### C BC ####[facility] Bcngnyibkv0148[address] [place], [place] [address]Dr. Airam Tripathi Hemoglobin (Bld) [Mass/Vol] 9.9 g/dL Critically low 12.0-16.0 [facility] Comment on above: Performed By: #### C BC ####[facility] Kzqglyddqt617[address] [place], [place] [address]Dr. Selenaneil Tripathi IG # 0.03 10e3/ul Normal 0.00-0.03 [facility] Comment on above: Performed By: #### C BC ####[facility] Ebpwhgbcbf2426[address] [place], [place] [address]Dr. Airam Tripathi IG % 0.4 % Normal 0.0-0.5 [facility] Comment on above: Performed By: #### C BC ####[facility] Cpqotbikpa0819[address] [place], [place] [address]Dr. Airam Tripathi LYMPH # 1.3 103/ul Normal 1.2-3.8 [facility] Comment on above: Performed By: #### C BC ####[facility] Hrzytvldfp224[address] [place], [place] [address]Dr. Airam Tripathi Lymphocytes/100 WBC (Bld) 19.0 % Critically low 20.5-60.0 [facility] Comment on above: Performed By: #### C BC ####[facility] Kppnvoywqx80232[address] [place], [place] [address]Dr. Airam Tripathi MANUAL DIFF REQ NO Normal [facility] Comment on above: Performed By: #### C BC ####[facility] Hhncdidegx2474[address] [place], [place] [address]Dr. Airam Tripathi MCH (RBC) [Entitic mass] 28.1 pg Normal 26.7-34.0 [facility] Comment on above: Performed By: #### C BC ####[facility] Giuyjjxpuz3789[address] [place], [place] [address]Dr. Airam Tripathi MCHC (RBC) [Mass/Vol] 31.6 g/dL Normal 29.9-35.2 [facility] Comment on above: Performed By: #### C BC ####[facility] Lizxyxvtjo6070[address] [place], [place] [address]Dr. Airam Tripathi MCV (RBC) [Entitic vol] 88.9 fL Normal 81.0-99.0 [facility] Comment on above: Performed By: #### C BC ####[facility] Onvdykqfnq7787[address] [place], [place] [address]Dr. Airam Tripathi MONO # 0.6 103/ul Normal 0.3-0.8 [facility] Comment on above: Performed By: #### C BC ####[facility] Jmhhosdywp8379[address] [place], [place] [address]Dr. Airam Tripathi Monocytes/100 WBC (Bld) 9.0 % Normal 1.7-12.0 [facility] Comment on above: Performed By: #### C BC ####[facility] Kmlzsmjkjr6086[address] [place], [place] [address]DrKianna Tripathi NEUT # 4.5 103/ul Normal 1.4-6.5 [facility] Comment on above: Performed By: #### C BC ####[facility] Pwhifiirnj7914[address] [place], [place] [address]Dr. Airam Tripathi Neutrophils/100 WBC (Bld) 67.9 % Normal 43.0-75.0 [facility] Comment on above: Performed By: #### C BC ####[facility] Gvbxuqmsrj9142 [place] [address]DrKianna Tripathi Platelet mean volume (Bld) [Entitic vol] 9.1 fL Critically low 9.5-13.5 [facility] Comment on above: Performed By: #### C BC ####[facility] Hguuimbqnv6392 [place] [address]DrKianna Tripathi PLT 256 103/ul Normal 150-450 [facility] Comment on above: Performed By: #### C BC ####[facility] Dbsjqfdlek6413[address] [place], [place] [address]DrKianna Tripathi RBC 3.52 106/ul Critically low 4.20-5.40 [facility] Comment on above: Performed By: #### C BC ####[facility] Jieiopjooj8550[address] [place], [place] [address]DrKianna Tripathi WBC 6.7 103/ul Normal 4.0-11.0 [facility] Comment on above: Performed By: #### C BC ####[facility] Ziguddctdg0785[address] [place], [place] [address]DrKianna Tripathi PROF 14(COMP METB)on 023 Albumin [Mass/Vol] 2.8 g/dL Critically low 3.4-5.0 [facility] Comment on above: Performed By: #### C MP ####[facility] Ykekhigsmy3844 [place] [address]DrKianna Tripathi Albumin/Globulin [Mass ratio] 0.9 {ratio} Normal [facility] Comment on above: Performed By: #### C MP ####[facility] Wcskibatvs196[address] [place], [place] [address]DrKianna Tripathi ALP [Catalytic activity/Vol] 118 U/L Critically high 46-116 [facility] Comment on above: Performed By: #### C MP ####[facility] Zclqurnufp4257[address] [place], [place] [address]DrKianna Tripathi ALT [Catalytic activity/Vol] 23 U/L Normal 14-59 [facility] Comment on above: Performed By: #### C MP ####[facility] Vzlkpyblic0063 [place] [address]Dr. Selenaneil Deuce Anion gap [Moles/Vol] 12.5 mmol/L Normal Th [facility] Comment on above: Performed By: #### C MP ####[facility] Hgcpluwciq0008[address] [place], [place] [address]Dr. Airam Deuce AST [Catalytic activity/Vol] 21 U/L Normal 15-37 [facility] Comment on above: Performed By: #### C MP ####[facility] Eyfakambrb2060[address] [place], [place] [address]Dr. Airam Tripathi Bilirubin [Mass/Vol] 0.4 mg/dL Normal 0.2-1.0 [facility] Comment on above: Performed By: #### C MP ####[facility] Tofjxzacxe2146[address] [place], [place] [address]Dr. Airam Tripathi Calcium [Mass/Vol] 8.2 mg/dL Critically low 8.5-10.1 [facility] Comment on above: Performed By: #### C MP ####[facility] Xerauyhavk1509[address] [place], [place] [address]Dr. Airam Tripathi Chloride [Moles/Vol] 99 mmol/L Normal 98-107 [facility] Comment on above: Performed By: #### C MP ####[facility] Yorvjcndcb759[address] [place], [place] [address]Dr. Airam Tripathi CO2 [Moles/Vol] 24.9 mmol/L Normal 21.0-32.0 [facility] Comment on above: Performed By: #### C MP ####[facility] Qabguynlyx8459[address] [place], [place] [address]Dr. Airam Tripathi Creatinine [Mass/Vol] 1.61 mg/dL Critically high 0.55-1.02 [facility] Comment on above: Performed By: #### C MP ####[facility] Decmxrncty829[address] [place], [place] [address]Dr. Airam Tripathi EGFR-AF SLOVENIAN 40 mL/min/1.73m2 Critically low >=60 [facility] Comment on above: Performed By: #### C MP ####[facility] Vchkiiqffv9519 [place] [address]Dr. Airam Deuce EGFR-NON AF SLOVENIAN 33 mL/min/1.73m2 Critically low >=60 [facility] Comment on above: Performed By: #### C MP ####[facility] Kaspjpohnt1227 [place] [address]Dr. Airam Tripathi Globulin (S) [Mass/Vol] 3.2 g/dL Normal [facility] Comment on above: Performed By: #### C MP ####[facility] Gtyeeckibu683[address] [place], [place] [address]Dr. Airam Tripathi Glucose [Mass/Vol] 67 mg/dL Critically low 74-106 [facility] Comment on above: Performed By: #### C MP ####[facility] Fnvkpuaarg101[address] [place], [place] [address]Dr. Airam Tripathi Potassium [Moles/Vol] 5.4 mmol/L Critically high 3.5-5.1 [facility] Comment on above: Performed By: #### C MP ####[facility] Xztuwbrobz923[address] [place], [place] [address]Dr. Airam Tripathi Protein [Mass/Vol] 6.0 g/dL Critically low 6.4-8.2 [facility] [facility] Comment on above: Performed By: #### C MP ####[facility] Gozvfxxndw[address] [place], [place] [address]Dr. Airam Tripathi Sodium [Moles/Vol] 131 mmol/L Critically low 136-145 [facility] Comment on above: Performed By: #### C MP ####[facility] Lgmiyjbxqg57[address] [place], [place] [address]Dr. Airam Tripathi Urea nitrogen [Mass/Vol] 43.0 mg/dL Critically high 7.0-18.0 [facility] Comment on above: Performed By: #### C MP ####[facility] Nfduvavkmi17[address] [place], [place] [address]Dr. Airam Tripathi Urea nitrogen/Creatinine [Mass ratio] 26.7 mg/mg Normal [facility] Comment on above: Performed By: #### C MP ####[facility] Errrbhtgko5056 [place] [address]Dr. Airam Tripathi CBC AUTO DIFFon 10-06-2022 BASO # 0.0 103/ul Normal 0.0-0.1 [facility] Comment on above: Performed By: #### C BC ####[facility] Hijnpllihk05[address] [place], [place] [address]Dr. Airam Tripathi Basophils/100 WBC (Bld) 0.3 % Normal 0.2-2.0 [facility] Comment on above: Performed By: #### C BC ####[facility] Zadpytuozs[address] [place], [place] [address]Dr. Airam Deuce EO # 0.2 103/ul Normal 0.0-0.7 [facility] Comment on above: Performed By: #### C BC ####[facility] Ygkfeyisia97[address] [place], [place] [address]Dr. Airam Deuce Eosinophils/100 WBC (Bld) 3.1 % Normal 0.9-7.0 [facility] Comment on above: Performed By: #### C BC ####[facility] Xzprrtpywx818[address] [place], [place] [address]Dr. Airam Tripathi Erythrocyte distribution width (RBC) [Ratio] 15.0 % Normal 11.0-15.0 [facility] Comment on above: Performed By: #### C BC ####[facility] Aspktwdceg9849[address] [place], [place] [address]Dr. Airam Tripathi Hematocrit (Bld) [Volume fraction] 30.9 % Critically low 36.0-48.0 [facility] Comment on above: Performed By: #### C BC ####[facility] Bnpkdymhxq9289[address] [place], [place] [address]Dr. Airam Tripathi Hemoglobin (Bld) [Mass/Vol] 10.1 g/dL Critically low 12.0-16.0 [facility] Comment on above: Result Comment: BIJU ENT RECIEVED 2 UNITS PRBC'S Performed By: #### C BC ####[facility] Nidiofmzeq9623 [place] [id number]. Airam Tripathi IG # 0.03 10e3/ul Normal 0.00-0.03 [facility] Comment on above: Performed By: #### C BC ####[facility] Fqhcrgbmno8788 [place] [id number]. Airam Tripathi IG % 0.4 % Normal 0.0-0.5 [facility] Comment on above: Performed By: #### C BC ####[facility] Cknzqpxexq8472 [place] [address]Dr. Airam Tripathi LYMPH # 1.1 103/ul Critically low 1.2-3.8 [facility] Comment on above: Performed By: #### C BC ####[facility] Ulmweviiqm3978[address] [place], [place] [address]Dr. Airam Tripathi Lymphocytes/100 WBC (Bld) 14.4 % Critically low 20.5-60.0 [facility] Comment on above: Performed By: #### C BC ####[facility] Gcugtyttvn2171 [place] [address]Dr. Airam Tripathi MANUAL DIFF REQ NO Normal [facility] Comment on above: Performed By: #### C BC ####[facility] Mvqmxvcugc105[address] [place], [place] [address]Dr. Airam Tripathi MCH (RBC) [Entitic mass] 28.9 pg Normal 26.7-34.0 [facility] Comment on above: Performed By: #### C BC ####[facility] Tcughzqxax746[address] [place], [place] [address]Dr. Airam Tripathi MCHC (RBC) [Mass/Vol] 32.7 g/dL Normal 29.9-35.2 [facility] Comment on above: Performed By: #### C BC ####[facility] Wvveymooov9224 [place] [address]Dr. Airam Deuce MCV (RBC) [Entitic vol] 88.3 fL Normal 81.0-99.0 [facility] Comment on above: Performed By: #### C BC ####[facility] Mpwxlmjqec5167 [place] [id number]. Airam Tripathi MONO # 0.6 103/ul Normal 0.3-0.8 [facility] Comment on above: Performed By: #### C BC ####[facility] Kmdghavrds3193 [place] [id number]. Airam Tripathi Monocytes/100 WBC (Bld) 7.8 % Normal 1.7-12.0 [facility] Comment on above: Performed By: #### C BC ####[facility] Oarkrjtcic1744 [place] [phone]. Airam Tripathi NEUT # 5.5 103/ul Normal 1.4-6.5 [facility] Comment on above: Performed By: #### C BC ####[facility] Uhuvjhiuaf4097 [place] [phone]. Airam Tripathi Neutrophils/100 WBC (Bld) 74.0 % Normal 43.0-75.0 [facility] Comment on above: Performed By: #### C BC ####[facility] Pnmwtblgah9141 [place] [phone]. Airam Tripathi Platelet mean volume (Bld) [Entitic vol] 9.2 fL Critically low 9.5-13.5 [facility] Comment on above: Performed By: #### C BC ####[facility] Wqsvdokpox2251 [place] [phone]. Airam Tripathi PLT 275 103/ul Normal 150-450 [facility] Comment on above: Performed By: #### C BC ####[facility] Yrnwxuafod7556 [place] [phone]. Airam Tripathi RBC 3.50 106/ul Critically low 4.20-5.40 [facility] Comment on above: Performed By: #### C BC ####[facility] Pyljqhzjzm2954 [place] [address]Dr. Airam Tripathi WBC 7.4 103/ul Normal 4.0-11.0 [facility] Comment on above: Performed By: #### C BC ####[facility] Nnzmifptek1584 [place] [id number]. Airam Tripathi BASO # 0.0 103/ul Normal 0.0-0.1 [facility] Comment on above: Performed By: #### C BC ####[facility] Usohroqynd[address] [place], [place] [address]Dr. Airam Tripathi Basophils/100 WBC (Bld) 0.4 % Normal 0.2-2.0 [facility] Comment on above: Performed By: #### C BC ####[facility] Jrphpellza614[address] [place], [place] [address]Dr. Airam Tripathi EO # 0.2 103/ul Normal 0.0-0.7 [facility] Comment on above: Performed By: #### C BC ####[facility] Dskscbqjmr752[address] [place], [place] [address]Dr. Airam Tripathi Eosinophils/100 WBC (Bld) 4.5 % Normal 0.9-7.0 [facility] Comment on above: Performed By: #### C BC ####[facility] Ppflwvsaof4314[address] [place], [place] [address]Dr. Airam Tripathi Erythrocyte distribution width (RBC) [Ratio] 15.1 % Critically high 11.0-15.0 [facility] Comment on above: Performed By: #### C BC ####[facility] Amwfqdlxxf128[address] [place], [place] [address]Dr. Airam Tripathi Hematocrit (Bld) [Volume fraction] 23.0 % Critically low 36.0-48.0 [facility] Comment on above: Performed By: #### C BC ####[facility] Pttyelquhp7979[address] [place], [place] [address]Dr. Airam Tripathi Hemoglobin (Bld) [Mass/Vol] 7.2 g/dL Critically low 12.0-16.0 [facility] Comment on above: Performed By: #### C BC ####[facility] Twwvraqybj8007[address] [place], [place] [address]Dr. Airam Tripathi IG # 0.02 10e3/ul Normal 0.00-0.03 [facility] Comment on above: Performed By: #### C BC ####[facility] Xovegbakwb3634 [place] [id number]. Airam Tripathi IG % 0.4 % Normal 0.0-0.5 [facility] Comment on above: Performed By: #### C BC ####[facility] Chhddgutwc9471 [place] [phone]. Airam Deuce LYMPH # 1.0 103/ul Critically low 1.2-3.8 [facility] Comment on above: Performed By: #### C BC ####[facility] Jcnndqlrzt4640 [place] [phone]. Airam Deuce Lymphocytes/100 WBC (Bld) 22.5 % Normal 20.5-60.0 [facility] Comment on above: Performed By: #### C BC ####[facility] Fdbjlqeauv9296 [place] [address]Dr. Airam Deuce MANUAL DIFF REQ NO Normal [facility] Comment on above: Performed By: #### C BC ####[facility] Izwukcubmf6405 [place] [address]Dr. Airam Tripathi MCH (RBC) [Entitic mass] 28.3 pg Normal 26.7-34.0 [facility] Comment on above: Performed By: #### C BC ####[facility] Zxszztpson1882 [place] [address]Dr. Airam Tripathi MCHC (RBC) [Mass/Vol] 31.3 g/dL Normal 29.9-35.2 [facility] Comment on above: Performed By: #### C BC ####[facility] Eeiajcofsq3766 [place] [phone]. Airam Tripathi MCV (RBC) [Entitic vol] 90.6 fL Normal 81.0-99.0 [facility] Comment on above: Performed By: #### C BC ####[facility] Wyleistwtf3370[address] [place], [place] [address]Dr. Selenaneil Tripathi MONO # 0.5 103/ul Normal 0.3-0.8 [facility] Comment on above: Performed By: #### C BC ####[facility] Iichehsqkz3223 [place] [address]Dr. Airam Tripathi Monocytes/100 WBC (Bld) 9.7 % Normal 1.7-12.0 [facility] Comment on above: Performed By: #### C BC ####[facility] Obmattieoz5381 [place] [phone]. Airam Tripathi NEUT # 2.9 103/ul Normal 1.4-6.5 [facility] Comment on above: Performed By: #### C BC ####[facility] Afefoaesiu3871 [place] [address]Dr. Airam Tripathi Neutrophils/100 WBC (Bld) 62.5 % Normal 43.0-75.0 [facility] Comment on above: Performed By: #### C BC ####[facility] Jwaixnsnvx2633 [place] [address]Dr. Airam Tripathi Platelet mean volume (Bld) [Entitic vol] 8.9 fL Critically low 9.5-13.5 [facility] Comment on above: Performed By: #### C BC ####[facility] Oxdmpgziuw7295 [place] [address]Dr. Airam Tripathi PLT 210 103/ul Normal 150-450 [facility] Comment on above: Performed By: #### C BC ####[facility] Xxllvdckky2094 [place] [address]Dr. Airam Tripathi RBC 2.54 106/ul Critically low 4.20-5.40 [facility] Comment on above: Performed By: #### C BC ####[facility] Utrohoskyh2912 [place] [address]Dr. Airam Tripathi WBC 4.6 103/ul Normal 4.0-11.0 [facility] Comment on above: Performed By: #### C BC ####[facility] Ohbzfxtoxi9759 [place] [address]Dr. Airam Tripathi OSMOLALITYon 10-06-2022 Osmolality [Osmolality] 279 mosm/kg Normal 275-295 [facility] Comment on above: Performed By: #### O SMO ####[facility] Yjmguywjot38[address] [place], [place] [address]Dr. Airam Tripathi POINT OF CARE GLUCOSEon 09-24 Glucose [Mass/Vol] 72 mg/dL Critically low 74-106 Th [facility] Comment on above: Performed By: #### P OCGLUC ####[facility] Uastteamnq0383 [place] [address]Dr. Selenaneil Deuce Glucose [Mass/Vol] 102 mg/dL Normal 74-106 [facility] Comment on above: Performed By: #### P OCGLUC ####[facility] Tycsubmnaz4821 [place] [address]Dr. Airam Tripathi Glucose [Mass/Vol] 165 mg/dL Critically high 74-106 [facility] Comment on above: Performed By: #### P OCGLUC ####[facility] Ghrsjxdnqm9549 [place] [address]Dr. Airam Tripathi PROF 14(COMP METB)on 023 Albumin [Mass/Vol] 2.6 g/dL Critically low 3.4-5.0 [facility] Comment on above: Performed By: #### C MP ####[facility] Fxuseztazt0133 [place] [address]Dr. Airam Tripathi Albumin/Globulin [Mass ratio] 0.9 {ratio} Normal [facility] Comment on above: Performed By: #### C MP ####[facility] Ddmrcgeipn4770 [place] [address]Dr. Airam Tripathi ALP [Catalytic activity/Vol] 107 U/L Normal 46-116 [facility] Comment on above: Performed By: #### C MP ####[facility] Pycptnnefv5245 [place] [address]Dr. Airam Tripathi ALT [Catalytic activity/Vol] 22 U/L Normal 14-59 [facility] Comment on above: Performed By: #### C MP ####[facility] Akctgpvqqw4420 [place] [address]Dr. Airam Tripathi Anion gap [Moles/Vol] 10.0 mmol/L Normal [facility] Comment on above: Performed By: #### C MP ####[facility] Zfckuesqhw9763 [place], [place] [address]Na. Airam Tripathi AST [Catalytic activity/Vol] 19 U/L Normal 15-37 [facility] Comment on above: Performed By: #### C MP ####[facility] Cimscgaysg4872 [place], [place] [address]Qp. Airam Tripathi Bilirubin [Mass/Vol] 0.2 mg/dL Normal 0.2-1.0 [facility] Comment on above: Performed By: #### C MP ####[facility] Zsjacotawl1749 [place] [phone]. Airam Tripathi Calcium [Mass/Vol] 8.1 mg/dL Critically low 8.5-10.1 [facility] Comment on above: Performed By: #### C MP ####[facility] Xolofgzthb1072 [place] [phone]. Airam Tripathi Chloride [Moles/Vol] 100 mmol/L Normal 98-107 [facility] Comment on above: Performed By: #### C MP ####[facility] Adjvgnaznw2013 [place] [phone]. Airam Tripathi CO2 [Moles/Vol] 26.2 mmol/L Normal 21.0-32.0 [facility] Comment on above: Performed By: #### C MP ####[facility] Gdyniefxqv8657 [place] [phone]. Airam Tripathi Creatinine [Mass/Vol] 1.90 mg/dL Critically high 0.55-1.02 [facility] Comment on above: Performed By: #### C MP ####[facility] Mvwgulgsip3068 [place] [phone]. Airam Tripathi EGFR-AF SLOVENIAN 33 mL/min/1.73m2 Critically low >=60 [facility] Comment on above: Performed By: #### C MP ####[facility] Fqldrkehvp4870 [place] [phone]. Airam Tripathi EGFR-NON AF SLOVENIAN 27 mL/min/1.73m2 Critically low >=60 [facility] Comment on above: Performed By: #### C MP ####[facility] Ltwzoaxjlb3406 [place] [phone]. Airam Tripathi Globulin (S) [Mass/Vol] 2.8 g/dL Normal [facility] Comment on above: Performed By: #### C MP ####[facility] Grdfymkhvc1290 [place] [phone]. Airam Tripathi Glucose [Mass/Vol] 115 mg/dL Critically high 74-106 [facility] Comment on above: Performed By: #### C MP ####[facility] Aydtokgmil0048 [place] [address]Dr. Airam Tripathi Potassium [Moles/Vol] 5.2 mmol/L Critically high 3.5-5.1 [facility] Comment on above: Performed By: #### C MP ####[facility] Tylwpffpsk2225[address] [place], [place] [address]Dr. Airam Tripathi Protein [Mass/Vol] 5.4 g/dL Critically low 6.4-8.2 [facility] Comment on above: Performed By: #### C MP ####[facility] Uondomoaja734822 [address] [place], [place] [address]Dr. Airam Tripathi Sodium [Moles/Vol] 131 mmol/L Critically low 136-145 [facility] Comment on above: Performed By: #### C MP ####[facility] Jddfndvase0248[address] [place], [place] [address]Dr. Airam Tripathi Urea nitrogen [Mass/Vol] 41.0 mg/dL Critically high 7.0-18.0 [facility] Comment on above: Performed By: #### C MP ####[facility] Ukuvtoxjus7523 [place] [address]Dr. Airam Tripathi Urea nitrogen/Creatinine [Mass ratio] 21.6 mg/mg Normal [facility] Comment on above: Performed By: #### C MP ####[facility] Wkmhtzdzll8648[address] [place], [place] [address]Dr. Airam Tripathi TYPE AND SCREENon 10-06-2022 TYPE AND SCREEN Negative Normal [facility] Comment on above: Performed By: #### T NS ####[facility] Lwxibbafra5932 [place] [phone]. Airam Tripathi CBC AUTO DIFFon 10-05-2022 BASO # 0.0 103/ul Normal 0.0-0.1 [facility] Comment on above: Performed By: #### C BC ####[facility] Lsvxgiwmsb6348[address] [place], [place] [address]Dr. Airam Deuce Basophils/100 WBC (Bld) 0.5 % Normal 0.2-2.0 [facility] Comment on above: Performed By: #### C BC ####[facility] Dtutnnlfyi3312[address] [place], [place] [address]Dr. iAram Tripathi EO # 0.2 103/ul Normal 0.0-0.7 [facility] Comment on above: Performed By: #### C BC ####[facility] Gppihvcktr086[address] [place], [place] [address]Dr. Airam Tripathi Eosinophils/100 WBC (Bld) 3.2 % Normal 0.9-7.0 [facility] Comment on above: Performed By: #### C BC ####[facility] Immtslgqpw8760[address] [place], [place] [address]Dr. Airam Tripathi Erythrocyte distribution width (RBC) [Ratio] 15.2 % Critically high 11.0-15.0 [facility] Comment on above: Performed By: #### C BC ####[facility] Bsmxzajgfd7524[address] [place], [place] [address]Dr. Airam Tripathi Hematocrit (Bld) [Volume fraction] 24.7 % Critically low 36.0-48.0 [facility] Comment on above: Performed By: #### C BC ####[facility] Zijyqzarfl5606[address] [place], [place] [address]Dr. Selenaneil Tripathi Hemoglobin (Bld) [Mass/Vol] 7.6 g/dL Critically low 12.0-16.0 [facility] Comment on above: Performed By: #### C BC ####[facility] Khpuyfupgv318[address] [place], [place] [address]Dr. Airam Tripathi IG # 0.02 10e3/ul Normal 0.00-0.03 [facility] Comment on above: Performed By: #### C BC ####[facility] Astralzodc1197 [place] [phone]. Airam Tripathi IG % 0.3 % Normal 0.0-0.5 [facility] Comment on above: Performed By: #### C BC ####[facility] Lfpravgidc8008 [place] [phone]. Airam Tripathi LYMPH # 1.1 103/ul Critically low 1.2-3.8 [facility] Comment on above: Performed By: #### C BC ####[facility] Fptljppiye1365 [place] [address]Dr. Airam Deuce Lymphocytes/100 WBC (Bld) 18.4 % Critically low 20.5-60.0 [facility] Comment on above: Performed By: #### C BC ####[facility] Oeruistmor7333 [place] [address]Dr. Selenaneil Tripathi MANUAL DIFF REQ NO Normal [facility] Comment on above: Performed By: #### C BC ####[facility] Pyebrazagv[address] [place], [place] [address]Dr. Airam Tripathi MCH (RBC) [Entitic mass] 28.5 pg Normal 26.7-34.0 [facility] Comment on above: Performed By: #### C BC ####[facility] Gwaqfykwtw6584 [place] [address]Dr. Airam Tripathi MCHC (RBC) [Mass/Vol] 30.8 g/dL Normal 29.9-35.2 [facility] Comment on above: Performed By: #### C BC ####[facility] Qeweylincp[address] [place], [place] [address]Dr. Airam Tripathi MCV (RBC) [Entitic vol] 92.5 fL Normal 81.0-99.0 [facility] Comment on above: Performed By: #### C BC ####[facility] Azwnntuyvh3426[address] [place], [place] [address]Dr. Airam Deuce MONO # 0.6 103/ul Normal 0.3-0.8 [facility] Comment on above: Performed By: #### C BC ####[facility] Pgridbngjg0112 [place] [phone]. Airam Tripathi Monocytes/100 WBC (Bld) 10.0 % Normal 1.7-12.0 [facility] Comment on above: Performed By: #### C BC ####[facility] Jzhhsxbhyz1979 [place] [phone]. Airam Tripathi NEUT # 4.0 103/ul Normal 1.4-6.5 [facility] Comment on above: Performed By: #### C BC ####[facility] Lrffykmqop1189 [place] [phone]. Airam Tripathi Neutrophils/100 WBC (Bld) 67.6 % Normal 43.0-75.0 [facility] Comment on above: Performed By: #### C BC ####[facility] Ckjujzxkin90[address] [place], [place] [address]Dr. Airam Tripathi Platelet mean volume (Bld) [Entitic vol] 8.8 fL Critically low 9.5-13.5 [facility] Comment on above: Performed By: #### C BC ####[facility] Ytyolydhpy5809 [place] [phone]. Airam Tripathi PLT 226 103/ul Normal 150-450 [facility] Comment on above: Performed By: #### C BC ####[facility] Nfvypuzohu1534 [place] [phone]. Airam Tripathi RBC 2.67 106/ul Critically low 4.20-5.40 [facility] Comment on above: Performed By: #### C BC ####[facility] Iomubsjakq9[address] [place], [place] [address]Dr. Airam Tripathi WBC 5.9 103/ul Normal 4.0-11.0 [facility] Comment on above: Performed By: #### C BC ####[facility] Kgzautkimb885[address] [place], [place] [address]Dr. Airam Tripathi Covid-19 PCR [facility]on [facility]-24 SARS-CoV-2 (COVID-19) RNA MIKE+probe Ql (Unsp spec) Not detected Normal NOT DETECTED [facility] Comment on above: Result Comment: When diagnostic [...] for this test is supported by the Child Care Giver of Health and Human Service's declaration that [...] be used). Performed By: #### C VDTBH ####[facility] Zhdufajrng7844[address] [place], [place] [address]Dr. Airam Tripathi MAGNESIUMon 10-05-2022 Magnesium [Mass/Vol] 1.7 mg/dL Critically low 1.8-2.4 [facility] Comment on above: Performed By: #### M Yumiko, CMP ####[facility] Wjdnzggwme8080[address] [place], [place] [address]Dr. Airam Tripathi POINT OF CARE GLUCOSEon 09-24 Glucose [Mass/Vol] 92 mg/dL Normal 74-106 [facility] Comment on above: Performed By: #### P OCGLUC ####[facility] Stbevtgxmi9490[address] [place], [place] [address]Dr. Airam Tripathi PROF 14(COMP METB)on 023 Albumin [Mass/Vol] 2.9 g/dL Critically low 3.4-5.0 [facility] Comment on above: Performed By: #### M Yumiko, CMP ####[facility] Ohsbmkfbta243[address] [place], [place] [address]Dr. Airam Tripathi Albumin/Globulin [Mass ratio] 0.9 {ratio} Normal [facility] Comment on above: Performed By: #### M G, CMP ####[facility] Npuqpoouzf3008[address] [place], [place] [address]Dr. Airam Tripathi ALP [Catalytic activity/Vol] 122 U/L Critically high 46-116 [facility] Comment on above: Performed By: #### M G, CMP ####[facility] Npzxrllqfd5099[address] [place], [place] [address]Dr. Airam Tripathi ALT [Catalytic activity/Vol] 24 U/L Normal 14-59 [facility] Comment on above: Performed By: #### M G, CMP ####[facility] Lscqjjbbln6399[address] [place], [place] [address]Dr. Selenaneil Tripathi Anion gap [Moles/Vol] 13.1 mmol/L Normal [facility] Comment on above: Performed By: #### Nadya G, CMP ####[facility] Maidwlgaow3787[address] [place], [place] [address]Dr. Airam Tripathi AST [Catalytic activity/Vol] 21 U/L Normal 15-37 [facility] Comment on above: Performed By: #### Nadya Calderon, CMP ####[facility] Rukvmhpsvz6069[address] [place], [place] [address]Dr. Airam Tripathi Bilirubin [Mass/Vol] 0.2 mg/dL Normal 0.2-1.0 [facility] Comment on above: Performed By: #### Nadya Claderon, CMP ####[facility] Ldkyhsiqqn3940[address] [place], [place] [address]Dr. Airam Tripathi Calcium [Mass/Vol] 8.4 mg/dL Critically low 8.5-10.1 [facility] Comment on above: Performed By: #### Nadya Yumiko, CMP ####[facility] Eaodzvdaws6907[address] [place], [place] [address]Dr. Airam Tripathi Chloride [Moles/Vol] 102 mmol/L Normal 98-107 [facility] Comment on above: Performed By: #### Nadya G, CMP ####[facility] Jaosyboqjx045[address] [place], [place] [address]Dr. Airam Tripathi CO2 [Moles/Vol] 23.2 mmol/L Normal 21.0-32.0 [facility] Comment on above: Performed By: #### M G, CMP ####[facility] Vwxgfgckil2813 [place] [address]Dr. Airam Tripathi Creatinine [Mass/Vol] 1.96 mg/dL Critically high 0.55-1.02 [facility] Comment on above: Performed By: #### M G, CMP ####[facility] Cnyrmydteo8860[address] [place], [place] [address]Dr. Airam Tripathi EGFR-AF SLOVENIAN 32 mL/min/1.73m2 Critically low >=60 [facility] Comment on above: Performed By: #### M G, CMP ####[facility] Tucwvzxpbh87[address] [place], [place] [address]Dr. Airam Tripathi EGFR-NON AF SLOVENIAN 26 mL/min/1.73m2 Critically low >=60 [facility] Comment on above: Performed By: #### M G, CMP ####[facility] Ajmctsjcmz0194[address] [place], [place] [address]Dr. Airam Tripathi Globulin (S) [Mass/Vol] 3.2 g/dL Normal [facility] Comment on above: Performed By: #### M G, CMP ####[facility] Gcxrfqeabl5378[address] [place], [place] [address]Dr. Airam Tripathi Glucose [Mass/Vol] 68 mg/dL Critically low 74-106 [facility] Comment on above: Performed By: #### M G, CMP ####[facility] Eamofyvlrx50[address] [place], [place] [address]Dr. Airam Tripathi Potassium [Moles/Vol] 5.3 mmol/L Critically high 3.5-5.1 [facility] Comment on above: Performed By: #### M G, CMP ####[facility] Ucfugnskzk9434[address] [place], [place] [address]Dr. Airam Tripathi Protein [Mass/Vol] 6.1 g/dL Critically low 6.4-8.2 [facility] Comment on above: Performed By: #### M G, CMP ####[facility] Fomyizgypx749[address] [place], [place] [address]Dr. Airam Tripathi Sodium [Moles/Vol] 133 mmol/L Critically low 136-145 [facility] Comment on above: Performed By: #### Nadya Calderon, CMP ####[facility] Vczmwbiumf4177[address] [place], [place] [address]Dr. Airam Tripathi Urea nitrogen [Mass/Vol] 39.0 mg/dL Critically high 7.0-18.0 [facility] [facility] Comment on above: Performed By: #### Nadya Calderon, CMP ####[facility] Asasjeeuzn[address] [place], [place] [address]Dr. Airam Tripathi Urea nitrogen/Creatinine [Mass ratio] 19.9 mg/mg Normal [facility] Comment on above: Performed By: #### Nadya Calderon, CMP ####[facility] Mjcvzcpjdh6[address] [place], [place] [address]Dr. Airam Tripathi SODIUM RANDOM URINEon 2022 Sodium (U) [Moles/Vol] 37 mmol/L Normal 30-90 Th [facility] Comment on above: Performed By: #### N AU ####[facility] Dfdhvepenx[address] [place], [place] [address]Dr. Airam Tripathi UA RANDOM W/MICROSCOPICon BACTERIA TRACE Abnormal NONE SEEN [facility] Comment on above: Performed By: #### U AMIC ####[facility] Zlsqusahqx[address] [place], [place] [address]Dr. Airam Tripathi Bilirubin Ql (U) Negative Normal NEGATIVE [facility] Comment on above: Performed By: #### U AMIC ####[facility] Dczjmqyjsw[address] [place], [place] [address]Dr. Airam Tripathi CAST SEEN Abnormal NONE SEEN [facility] Comment on above: Performed By: #### U AMIC ####[facility] Nquzlffhem[address] [place], [place] [address]Dr. Airam Tripathi Clarity (U) CLEAR Normal CLEAR [facility] Comment on above: Performed By: #### U AMIC ####[facility] Wnqsocnsed80[address] [place], [place] [address]Dr. Airam Tripathi Color (U) YELLOW Normal YELLOW [facility] Comment on above: Performed By: #### U AMIC ####[facility] Iffkyrbvwu9[address] [place] [id number]. Selenalan Tripathi Crystals LM Nom (Urine sed) NONE SEEN Normal NONE SEEN [facility] Comment on above: Performed By: #### U AMIC ####[facility] Subghgjjis4205 [place] [id number]. Yilan Tripathi Epithelial cells LM Ql (Urine sed) RARE Normal NONE SEEN /RARE [facility] Comment on above: Performed By: #### U AMIC ####[facility] Jrfswfxhtx6384 [place] [id number]. Yilan Tripathi Glucose Ql (U) Negative Normal NEGATIVE [facility] Comment on above: Performed By: #### U AMIC ####[facility] Avlxdqguxl80[address] [place] [address]Dr. Yilan Tripathi Hemoglobin Ql (U) Negative Normal NEGATIVE [facility] Comment on above: Performed By: #### U AMIC ####[facility] Rolsljcoyr8[address] [place], [place] [address]Dr. Yilan Tripathi HYALINE CAST RARE Normal [facility] Comment on above: Performed By: #### U AMIC ####[facility] Xitokvwstm63[address] [place], [place] [address]Dr. Selenalan Tripathi Ketones Ql (U) TRACE Abnormal NEGATIVE [facility] Comment on above: Performed By: #### U AMIC ####[facility] Lyskueiodl5[address] [place] [address]Dr. Yilan Tripathi LEUKOCYTES Negative Normal NEGATIVE [facility] Comment on above: Performed By: #### U AMIC ####[facility] Popzfemdor0602 [place] [id number]. Yilan Tripathi MUCOUS NONE SEEN Normal NONE SEEN [facility] Comment on above: Performed By: #### U AMIC ####[facility] Fxdyimhmws4515[address] [place], [place] [address]Dr. Yilan Tripathi Nitrite Ql (U) Negative Normal NEGATIVE [facility] Comment on above: Performed By: #### U AMIC ####[facility] Bnuwzkssdv968[address] [place], [place] [address]Dr. Airam Tripathi pH (U) 5.0 [pH] Normal 5-9 [facility] Comment on above: Performed By: #### U AMIC ####[facility] Bsvvxeydea29[address] [place] [address]Dr. Airam Tripathi RBC 0-2 Normal 0-2 [facility] Comment on above: Performed By: #### U AMIC ####[facility] Xrvxhusnlo6116 [place] [address]Dr. Airam Tripathi SPEC GRAVITY 1.015 Normal 1.005-<=1.02 5 [facility] Comment on above: Performed By: #### U AMIC ####[facility] Chqcwkstju9374[address] [place], [place] [address]Dr. Airam Tripathi UA PROTEIN Negative Normal NEGATIVE/ TRACE [facility] Comment on above: Performed By: #### U AMIC ####[facility] Sbfkcyzmzb8727[address] [place], [place] [address]Dr. Airam Tripathi Urobilinogen Qn (U) 0.2 {Ligia'U}/dL Normal 0.2 - 1. 0 [facility] Comment on above: Performed By: #### U AMIC ####[facility] Ruuivzknvw2576[address] [place], [place] [address]Dr. Airam Tripathi WBC NONE SEEN Normal NONE SEEN [facility] Comment on above: Performed By: #### U AMIC ####[facility] Sxozmuwamn20[address] [place] [address]Dr. Airam Tripathi CBC AUTO DIFFon 10-04-2022 BASO # 0.0 103/ul Normal 0.0-0.1 [facility] Comment on above: Performed By: #### C BC ####[facility] Fnvrzfsfrc544[address] [place], [place] [address]Dr. Airam Tripathi Basophils/100 WBC (Bld) 0.3 % Normal 0.2-2.0 [facility] Comment on above: Performed By: #### C BC ####[facility] Trlpivgwek8409[address] [place], [place] [address]Dr. Airam Tripathi EO # 0.2 103/ul Normal 0.0-0.7 [facility] Comment on above: Performed By: #### C BC ####[facility] Lnbklwhrmp022[address] [place] [address]Dr. Airam Deuce Eosinophils/100 WBC (Bld) 3.2 % Normal 0.9-7.0 [facility] Comment on above: Performed By: #### C BC ####[facility] Ewtfinzekh5260[address] [place], [place] [address]Dr. Selenaneil Deuce Erythrocyte distribution width (RBC) [Ratio] 15.1 % Critically high 11.0-15.0 [facility] Comment on above: Performed By: #### C BC ####[facility] Svekojnjtk1801[address] [place], [place] [address]Dr. Airam Tripathi Hematocrit (Bld) [Volume fraction] 27.6 % Critically low 36.0-48.0 [facility] Comment on above: Performed By: #### C BC ####[facility] Mquxotkail422[address] [place], [place] [address]Dr. Airam Tripathi Hemoglobin (Bld) [Mass/Vol] 8.7 g/dL Critically low 12.0-16.0 [facility] Comment on above: Performed By: #### C BC ####[facility] Igpgqaticj703[address] [place], [place] [address]Dr. Airam Tripathi IG # 0.03 10e3/ul Normal 0.00-0.03 [facility] Comment on above: Performed By: #### C BC ####[facility] Djspccbulq596[address] [place], [place] [address]Dr. Airam Tripathi IG % 0.4 % Normal 0.0-0.5 [facility] Comment on above: Performed By: #### C BC ####[facility] Cymwsbfzvn7835[address] [place], [place] [address]Dr. Airam Tripathi LYMPH # 1.2 103/ul Normal 1.2-3.8 [facility] Comment on above: Performed By: #### C BC ####[facility] Rmkmclmrmw5328[address] [place], [place] [address]Dr. Airam Tripathi Lymphocytes/100 WBC (Bld) 16.4 % Critically low 20.5-60.0 [facility] Comment on above: Performed By: #### C BC ####[facility] Zfimnukpmu7254 [place] [address]DrKianna Tripathi MANUAL DIFF REQ NO Normal [facility] Comment on above: Performed By: #### C BC ####[facility] Yyngbnwild2346 [place] [address]Dr. Airam Tripathi MCH (RBC) [Entitic mass] 28.5 pg Normal 26.7-34.0 [facility] Comment on above: Performed By: #### C BC ####[facility] Hacxzctnuw3801[address] [place], [place] [address]Dr. Airam Tripathi MCHC (RBC) [Mass/Vol] 31.5 g/dL Normal 29.9-35.2 [facility] Comment on above: Performed By: #### C BC ####[facility] Ihphxirxsc8706[address] [place], [place] [address]DrKianna Tripathi MCV (RBC) [Entitic vol] 90.5 fL Normal 81.0-99.0 [facility] Comment on above: Performed By: #### C BC ####[facility] Hddvhhyexr2765[address] [place], [place] [address]DrKianna Tripathi MONO # 0.5 103/ul Normal 0.3-0.8 [facility] Comment on above: Performed By: #### C BC ####[facility] Ozyczhnpcu667[address] [place], [place] [address]DrKianna Tripathi Monocytes/100 WBC (Bld) 7.3 % Normal 1.7-12.0 [facility] Comment on above: Performed By: #### C BC ####[facility] Mnspwuxkwo1548[address] [place], [place] [address]DrKianna Tripathi NEUT # 5.4 103/ul Normal 1.4-6.5 [facility] Comment on above: Performed By: #### C BC ####[facility] Rzsxomqazu038[address] [place], [place] [address]DrKianna Tripathi Neutrophils/100 WBC (Bld) 72.4 % Normal 43.0-75.0 [facility] Comment on above: Performed By: #### C BC ####[facility] Hffatetwyh7834 [place] [address]DrKianna Tripathi Platelet mean volume (Bld) [Entitic vol] 9.1 fL Critically low 9.5-13.5 [facility] Comment on above: Performed By: #### C BC ####[facility] Hygyltggjc0723 [place] [address]DrKianna Tripathi PLT 304 103/ul Normal 150-450 [facility] Comment on above: Performed By: #### C BC ####[facility] Byoiwayrnw2857[address] [place], [place] [address]DrKianna Tripathi RBC 3.05 106/ul Critically low 4.20-5.40 [facility] Comment on above: Performed By: #### C BC ####[facility] Hfblxttacn5273 [place] [address]DrKianna Tripathi WBC 7.4 103/ul Normal 4.0-11.0 [facility] Comment on above: Performed By: #### C BC ####[facility] Tramojtyfz6620[address] [place], [place] [address]DrKianna Tripathi PROF 14(COMP METB)on 023 Albumin [Mass/Vol] 3.3 g/dL Critically low 3.4-5.0 [facility] Comment on above: Performed By: #### C MP ####[facility] Rhklnjsupj3916[address] [place], [place] [address]DrKianna Tripathi Albumin/Globulin [Mass ratio] 0.9 {ratio} Normal [facility] Comment on above: Performed By: #### C MP ####[facility] Tczgkwiwvb517[address] [place], [place] [address]DrKianna Tripathi ALP [Catalytic activity/Vol] 127 U/L Critically high 46-116 [facility] Comment on above: Performed By: #### C MP ####[facility] Bvxbrpcbea9208[address] [place], [place] [address]DrKianna Tripathi ALT [Catalytic activity/Vol] 29 U/L Normal 14-59 [facility] Comment on above: Performed By: #### C MP ####[facility] Lhmhqrhtem7742 [place] [address]Dr. Airam Tripathi Anion gap [Moles/Vol] 14.6 mmol/L Normal [facility] Comment on above: Performed By: #### C MP ####[facility] Etsreuilul4860 [place] [address]Dr. Airam Tripathi AST [Catalytic activity/Vol] 28 U/L Normal 15-37 [facility] Comment on above: Performed By: #### C MP ####[facility] Rdpylgzudr5646[address] [place], [place] [address]Dr. Selenaneil Deuce Bilirubin [Mass/Vol] 0.3 mg/dL Normal 0.2-1.0 [facility] Comment on above: Performed By: #### C MP ####[facility] Dwygzvmeuz2238[address] [place], [place] [address]Dr. Airam Deuce Calcium [Mass/Vol] 8.9 mg/dL Normal 8.5-10.1 [facility] Comment on above: Performed By: #### C MP ####[facility] Osfnjdhvkp366[address] [place], [place] [address]Dr. Airam Deuce Chloride [Moles/Vol] 99 mmol/L Normal 98-107 [facility] Comment on above: Performed By: #### C MP ####[facility] Zixldbvwcl4489[address] [place], [place] [address]Dr. Airam Deuce CO2 [Moles/Vol] 25.1 mmol/L Normal 21.0-32.0 [facility] Comment on above: Performed By: #### C MP ####[facility] Hwznaauked4813[address] [place], [place] [address]Dr. Selenaneil Deuce Creatinine [Mass/Vol] 1.42 mg/dL Critically high 0.55-1.02 [facility] Comment on above: Performed By: #### C MP ####[facility] Yxrcqgsmon565[address] [place], [place] [address]Dr. Airam Deuce EGFR-AF SLOVENIAN 46 mL/min/1.73m2 Critically low >=60 [facility] Comment on above: Performed By: #### C MP ####[facility] Qweqzlanat5509 [place] [address]Dr. Airam Deuce EGFR-NON AF SLOVENIAN 38 mL/min/1.73m2 Critically low >=60 [facility] Comment on above: Performed By: #### C MP ####[facility] Mvmtktlubc9321 [place] [address]Dr. Selenaneil Deuce Globulin (S) [Mass/Vol] 3.6 g/dL Normal [facility] Comment on above: Performed By: #### C MP ####[facility] Yqplvygcbl3407 [place] [address]Dr. Selenaneil Deuce Glucose [Mass/Vol] 79 mg/dL Normal 74-106 [facility] Comment on above: Performed By: #### C MP ####[facility] Ofpcpphfix6915[address] [place], [place] [address]Dr. Airam Tripathi Potassium [Moles/Vol] 5.7 mmol/L Critically high 3.5-5.1 [facility] Comment on above: Performed By: #### C MP ####[facility] Xakocazdaw699[address] [place], [place] [address]Dr. Airam Deuce Protein [Mass/Vol] 6.9 g/dL Normal 6.4-8.2 [facility] Comment on above: Performed By: #### C MP ####[facility] Sygnjbkeao2484 [place] [address]Dr. Selenaneil Deuce Sodium [Moles/Vol] 133 mmol/L Critically low 136-145 Th [facility] Comment on above: Performed By: #### C MP ####[facility] Wwubgazqsg7940[address] [place], [place] [address]Dr. Airam Tripathi Urea nitrogen [Mass/Vol] 35.0 mg/dL Critically high 7.0-18.0 [facility] Comment on above: Performed By: #### C MP ####[facility] Mtiqjocpfw336[address] [place], [place] [address]Dr. Airam Tripathi Urea nitrogen/Creatinine [Mass ratio] 24.6 mg/mg Normal [facility] Comment on above: Performed By: #### C MP ####[facility] Tbrkjvwhta539[address] [place], [place] [address]DrKianna Tripathi OSMOLALITYon 10-02-2022 Osmolality [Osmolality] 277 mosm/kg Normal 275-295 [facility] Comment on above: Performed By: #### O SMO ####[facility] Dfmnllgaui138[address] [place], [place] [address]DrKianna Tripathi CBC AUTO DIFFon 09-29-2022 BASO # 0.0 103/ul Normal 0.0-0.1 [facility] Comment on above: Performed By: #### C BC ####[facility] Eyiisurlkd7750[address] [place], [place] [address]DrKianna Tripathi Basophils/100 WBC (Bld) 0.5 % Normal 0.2-2.0 [facility] Comment on above: Performed By: #### C BC ####[facility] Iehiivzcfp487[address] [place], [place] [address]DrKianna Tripathi EO # 0.2 103/ul Normal 0.0-0.7 [facility] Comment on above: Performed By: #### C BC ####[facility] Sonuuryxug45232[address] [place], [place] [address]DrKianna Tripathi Eosinophils/100 WBC (Bld) 3.2 % Normal 0.9-7.0 [facility] Comment on above: Performed By: #### C BC ####[facility] Muyzgqiocw236[address] [place], [place] [address]DrKianna Tripathi Erythrocyte distribution width (RBC) [Ratio] 15.1 % Critically high 11.0-15.0 [facility] Comment on above: Performed By: #### C BC ####[facility] Vpapjheyag6916[address] [place], [place] [address]DrKianna Tripathi Hematocrit (Bld) [Volume fraction] 26.2 % Critically low 36.0-48.0 [facility] Comment on above: Performed By: #### C BC ####[facility] Pxhckyqwdp3112[address] [place], [place] [address]Dr. Airam Tripathi Hemoglobin (Bld) [Mass/Vol] 8.1 g/dL Critically low 12.0-16.0 [facility] Comment on above: Performed By: #### C BC ####[facility] Ndfaoaqllw2377 [place] [address]Dr. Airam Tripathi IG # 0.02 10e3/ul Normal 0.00-0.03 [facility] Comment on above: Performed By: #### C BC ####[facility] Zntqberuas921[address] [place], [place] [address]Dr. Airam Tripathi IG % 0.4 % Normal 0.0-0.5 [facility] Comment on above: Performed By: #### C BC ####[facility] Tjmweengrq6605[address] [place], [place] [address]DrKianna Tripathi LYMPH # 1.3 103/ul Normal 1.2-3.8 [facility] Comment on above: Performed By: #### C BC ####[facility] Mnuvfcqekz7145[address] [place], [place] [address]Dr. Airam Tripathi Lymphocytes/100 WBC (Bld) 22.6 % Normal 20.5-60.0 [facility] Comment on above: Performed By: #### C BC ####[facility] Rlpupgdwwg5546[address] [place], [place] [address]DrKianna Tripathi MANUAL DIFF REQ NO Normal [facility] Comment on above: Performed By: #### C BC ####[facility] Qgrtnbpgyu101[address] [place], [place] [address]DrKianna Tripathi MCH (RBC) [Entitic mass] 28.0 pg Normal 26.7-34.0 [facility] Comment on above: Performed By: #### C BC ####[facility] Mqdyahadhy845[address] [place], [place] [address]Dr. Airam Tripathi MCHC (RBC) [Mass/Vol] 30.9 g/dL Normal 29.9-35.2 [facility] Comment on above: Performed By: #### C BC ####[facility] Osuveoxjzg9037[address] [place], [place] [address]DrKianna Tripathi MCV (RBC) [Entitic vol] 90.7 fL Normal 81.0-99.0 [facility] Comment on above: Performed By: #### C BC ####[facility] Kyvrghdqvv933[address] [place] [address] Airam Tripathi MONO # 0.5 103/ul Normal 0.3-0.8 [facility] Comment on above: Performed By: #### C BC ####[facility] Abiibjitoo6926[address] [place], [place] [address]DrKianna Airam Tripathi Monocytes/100 WBC (Bld) 9.6 % Normal 1.7-12.0 [facility] Comment on above: Performed By: #### C BC ####[facility] Qrzjqhujym1615[address] [place], [place] [address]DrKianna Airam Tripathi NEUT # 3.6 103/ul Normal 1.4-6.5 [facility] Comment on above: Performed By: #### C BC ####[facility] Xnxudjesyj5236[address] [place], [place] [address]DrKianna Airam Tripathi Neutrophils/100 WBC (Bld) 63.7 % Normal 43.0-75.0 [facility] Comment on above: Performed By: #### C BC ####[facility] Xycgjjuwkx8825[address] [place], [place] [address]DrKianna Airam Tripathi Platelet mean volume (Bld) [Entitic vol] 9.4 fL Critically low 9.5-13.5 [facility] Comment on above: Performed By: #### C BC ####[facility] Sntbslqlyf1154[address] [place], [place] [address]DrKianna Airam Tripathi PLT 258 103/ul Normal 150-450 [facility] Comment on above: Performed By: #### C BC ####[facility] Ujtyifxnoz9957[address] [place], [place] [address]DrKianna Airam Deuce RBC 2.89 106/ul Critically low 4.20-5.40 [facility] Comment on above: Performed By: #### C BC ####[facility] Nqigfcfbch360[address] [place], [place] [address]DrKianna Tripathi WBC 5.6 103/ul Normal 4.0-11.0 [facility] Comment on above: Performed By: #### C BC ####[facility] Nryzplsbmn8415[address] [place], [place] [address]Dr. Airam Tripathi PROF 14(COMP METB)on 023 Albumin [Mass/Vol] 3.0 g/dL Critically low 3.4-5.0 [facility] Comment on above: Performed By: #### C MP ####[facility] Gwpjbtbjyl1217[address] [place], [place] [address]Dr. Airam Tripathi Albumin/Globulin [Mass ratio] 1.1 {ratio} Normal [facility] Comment on above: Performed By: #### C MP ####[facility] Bclxblyllc735[address] [place], [place] [address]Dr. Airam Tripathi ALP [Catalytic activity/Vol] 102 U/L Normal 46-116 [facility] Comment on above: Performed By: #### C MP ####[facility] Ysgdnidzrf879[address] [place], [place] [address]Dr. Airam Tripathi ALT [Catalytic activity/Vol] 20 U/L Normal 14-59 [facility] Comment on above: Performed By: #### C MP ####[facility] Vvhsmmossm9346[address] [place], [place] [address]Dr. Airam Tripathi Anion gap [Moles/Vol] 11.1 mmol/L Normal Th [facility] Comment on above: Performed By: #### C MP ####[facility] Uuvulcyxxt4049[address] [place], [place] [address]Dr. Airam Tripathi AST [Catalytic activity/Vol] 18 U/L Normal 15-37 [facility] Comment on above: Performed By: #### C MP ####[facility] Pizsgsenqv8527[address] [place], [place] [address]Dr. Airam Tripathi Bilirubin [Mass/Vol] 0.2 mg/dL Normal 0.2-1.0 [facility] Comment on above: Performed By: #### C MP ####[facility] Lfsdfrfyvu6069[address] [place], [place] [address]Dr. Airam Tripathi Calcium [Mass/Vol] 8.0 mg/dL Critically low 8.5-10.1 [facility] Comment on above: Performed By: #### C MP ####[facility] Mijjtakpdm3241 [place] [address]Dr. Airam Deuce Chloride [Moles/Vol] 100 mmol/L Normal 98-107 [facility] Comment on above: Performed By: #### C MP ####[facility] Bspmpmzqyp8519 [place] [address]Dr. Airam Deuce CO2 [Moles/Vol] 24.8 mmol/L Normal 21.0-32.0 [facility] Comment on above: Performed By: #### C MP ####[facility] Fjgkuovmak2505[address] [place], [place] [address]Dr. Airam Deuce Creatinine [Mass/Vol] 1.11 mg/dL Critically high 0.55-1.02 [facility] Comment on above: Performed By: #### C MP ####[facility] Ltynycymup2856[address] [place], [place] [address]Dr. Airam Deuce EGFR-AF SLOVENIAN >60 Normal >=60 [facility] Comment on above: Performed By: #### C MP ####[facility] Mdbicwpfmj0570[address] [place], [place] [address]Dr. Selenaneil Deuce EGFR-NON AF SLOVENIAN 50 mL/min/1.73m2 Critically low >=60 [facility] Comment on above: Performed By: #### C MP ####[facility] Maocajiwzw4978 [place] [address]Dr. Airam Triptahi Globulin (S) [Mass/Vol] 2.8 g/dL Normal [facility] Comment on above: Performed By: #### C MP ####[facility] Olyjdxwyjf2255[address] [place], [place] [address]Dr. Airam Tripathi Glucose [Mass/Vol] 77 mg/dL Normal 74-106 [facility] Comment on above: Performed By: #### C MP ####[facility] Jdbmydkagh8378 [place] [address]Dr. Airam Tripathi Potassium [Moles/Vol] 4.9 mmol/L Normal 3.5-5.1 [facility] Comment on above: Performed By: #### C MP ####[facility] Pvbvjxbkou0259[address] [place], [place] [address]Dr. Airam Tripathi Protein [Mass/Vol] 5.8 g/dL Critically low 6.4-8.2 [facility] Comment on above: Performed By: #### C MP ####[facility] Wjphycymmj027[address] [place], [place] [address]Dr. Selenaneil Deuce Sodium [Moles/Vol] 131 mmol/L Critically low 136-145 [facility] Comment on above: Performed By: #### C MP ####[facility] Mxofxnrbsg4059[address] [place], [place] [address]Dr. Selenaneil Deuce Urea nitrogen [Mass/Vol] 33.0 mg/dL Critically high 7.0-18.0 [facility] Comment on above: Performed By: #### C MP ####[facility] Jqtrzqigpn175[address] [place], [place] [address]Dr. Selenaneil Deuce Urea nitrogen/Creatinine [Mass ratio] 29.7 mg/mg Normal [facility] Comment on above: Performed By: #### C MP ####[facility] Alrajnqvnp1787[address] [place], [place] [address]Dr. Airam Deuce ECHOCARDIO M/2D COMPLETEon 0 09-21-2022 ECHOCARDIO M/2D COMPLETE Normal [facility] OSMOLALITYon 09-21-2022 Osmolality [Osmolality] 282 mosm/kg Normal 275-295 [facility] Comment on above: Performed By: #### O SMO ####[facility] Gbmdzszbqb300[address] [place], [place] [address]Dr. Airam Tripathi PHOSPHOLIPIDSon 09-21-2022 Phospholipids, Serum 249 mg/dL Normal 151-288 [facility] Comment on above: Performed By: #### P HOSLIP ####[facility] Fhnedahqxb4235[address] [place], [place] [address]Dr. Airam Tripathi CBC AUTO DIFFon 09-20-2022 BASO # 0.0 103/ul Normal 0.0-0.1 [facility] Comment on above: Performed By: #### C BC ####[facility] Hzjffelaul[address] [place] [id number]. Airam Tripathi Basophils/100 WBC (Bld) 0.5 % Normal 0.2-2.0 [facility] Comment on above: Performed By: #### C BC ####[facility] Exluyfkapb[address] [place], [place] [address]Dr. Airam Tripathi EO # 0.2 103/ul Normal 0.0-0.7 [facility] Comment on above: Performed By: #### C BC ####[facility] Dwxlcvcakn201[address] [place], [place] [address]Dr. Airam Tripathi Eosinophils/100 WBC (Bld) 2.9 % Normal 0.9-7.0 [facility] Comment on above: Performed By: #### C BC ####[facility] Uhonmglgeh[address] [place], [place] [address]Dr. Airam Tripathi Erythrocyte distribution width (RBC) [Ratio] 15.4 % Critically high 11.0-15.0 [facility] Comment on above: Performed By: #### C BC ####[facility] Gotvyfcfcd9588[address] [place], [place] [address]Dr. Airam Tripathi Hematocrit (Bld) [Volume fraction] 26.3 % Critically low 36.0-48.0 [facility] Comment on above: Performed By: #### C BC ####[facility] Fadznrpaha[address] [place], [place] [address]Dr. Airam Tripathi Hemoglobin (Bld) [Mass/Vol] 8.2 g/dL Critically low 12.0-16.0 [facility] Comment on above: Performed By: #### C BC ####[facility] Lmdtyhwrls83[address] [place], [place] [address]Dr. Airam Tripathi IG # 0.03 10e3/ul Normal 0.00-0.03 [facility] Comment on above: Performed By: #### C BC ####[facility] Kjqodccazk[address] [place], [place] [address]Dr. Airam Tripathi IG % 0.4 % Normal 0.0-0.5 [facility] Comment on above: Performed By: #### C BC ####[facility] Wyhewyrjxj3194 [place] [id number]. Airam Tripathi LYMPH # 1.9 103/ul Normal 1.2-3.8 [facility] Comment on above: Performed By: #### C BC ####[facility] Mtanqvuvyi7429 [place] [id number]. Airam Tripathi Lymphocytes/100 WBC (Bld) 23.0 % Normal 20.5-60.0 [facility] Comment on above: Performed By: #### C BC ####[facility] Aqmkvpcekz0447 [place] [address]Dr. Airam Tripathi MANUAL DIFF REQ NO Normal [facility] Comment on above: Performed By: #### C BC ####[facility] Effmiskzkj93[address] [place], [place] [address]Dr. Airam Deuce MCH (RBC) [Entitic mass] 28.5 pg Normal 26.7-34.0 [facility] Comment on above: Performed By: #### C BC ####[facility] Tsundnkggl[address] [place], [place] [id number]. Airam Tripathi MCHC (RBC) [Mass/Vol] 31.2 g/dL Normal 29.9-35.2 [facility] Comment on above: Performed By: #### C BC ####[facility] Yuhmpxtzrh2624 [place] [id number]. Airam Tripathi MCV (RBC) [Entitic vol] 91.3 fL Normal 81.0-99.0 [facility] Comment on above: Performed By: #### C BC ####[facility] Hndpbftzyf7963 [place] [id number]. Airam Tripathi MONO # 0.7 103/ul Normal 0.3-0.8 [facility] Comment on above: Performed By: #### C BC ####[facility] Etvjivyome[address] [place], [place] [address]Dr. Airam Tripathi Monocytes/100 WBC (Bld) 7.7 % Normal 1.7-12.0 [facility] Comment on above: Performed By: #### C BC ####[facility] Owcrycmqed5283 [place] [phone]. Airam Tripathi NEUT # 5.5 103/ul Normal 1.4-6.5 [facility] Comment on above: Performed By: #### C BC ####[facility] Ivwsdijraz3581 [place] [id number]. Airam Tripathi Neutrophils/100 WBC (Bld) 65.5 % Normal 43.0-75.0 [facility] Comment on above: Performed By: #### C BC ####[facility] Nyunntuofw2651 [place] [address]Dr. Airam Tripathi Platelet mean volume (Bld) [Entitic vol] 9.1 fL Critically low 9.5-13.5 [facility] Comment on above: Performed By: #### C BC ####[facility] Miorloduxh2266 [place] [address]Dr. Airam Deuce PLT 258 103/ul Normal 150-450 [facility] Comment on above: Performed By: #### C BC ####[facility] Gfysyhzrmj80[address] [place], [place] [address]Dr. Airam Tripathi RBC 2.88 106/ul Critically low 4.20-5.40 [facility] Comment on above: Performed By: #### C BC ####[facility] Bkcquxkezp6571 [place] [address]Dr. Airam Tripathi WBC 8.4 103/ul Normal 4.0-11.0 [facility] Comment on above: Performed By: #### C BC ####[facility] Oxxxyxigdc53[address] [place], [place] [address]DrKianna Selenaneil Tripathi PROF CHEM 8 (BAS METB)on Anion gap [Moles/Vol] 10.3 mmol/L Normal [facility] Comment on above: Performed By: #### B MP ####[facility] Rcqibmyqzw20[address] [place], [place] [address]DrKianna Airam Deuce Calcium [Mass/Vol] 7.9 mg/dL Critically low 8.5-10.1 [facility] Comment on above: Performed By: #### B MP ####[facility] Daqstvofgs2994 [place] [address]Dr. Airam Tripathi Chloride [Moles/Vol] 98 mmol/L Normal 98-107 [facility] Comment on above: Performed By: #### B MP ####[facility] Juigaxhvnz6832 [place] [address]Dr. Airam Deuce CO2 [Moles/Vol] 27.5 mmol/L Normal 21.0-32.0 [facility] Comment on above: Performed By: #### B MP ####[facility] Imlxshovfv8632 [place] [address]Dr. Airam Tripathi Creatinine [Mass/Vol] 1.44 mg/dL Critically high 0.55-1.02 [facility] Comment on above: Performed By: #### B MP ####[facility] Pskxapghir22[address] [place], [place] [address]Dr. Selenaneil Deuce EGFR-AF SLOVENIAN 45 mL/min/1.73m2 Critically low >=60 [facility] Comment on above: Performed By: #### B MP ####[facility] Cdrycmrojv8145[address] [place], [place] [address]Dr. Airam Deuce EGFR-NON AF SLOVENIAN 37 mL/min/1.73m2 Critically low >=60 [facility] Comment on above: Performed By: #### B MP ####[facility] Kwzvgayxxv3626[address] [place], [place] [address]Dr. Airam Deuce Glucose [Mass/Vol] 91 mg/dL Normal 74-106 [facility] Comment on above: Performed By: #### B MP ####[facility] Uofbxvlvux143[address] [place], [place] [address]Dr. Airam Tripathi Potassium [Moles/Vol] 4.8 mmol/L Normal 3.5-5.1 [facility] Comment on above: Performed By: #### B MP ####[facility] Neaisavqtb6465[address] [place], [place] [address]Dr. Airam Tripathi Sodium [Moles/Vol] 131 mmol/L Critically low 136-145 [facility] Comment on above: Performed By: #### B MP ####[facility] Wxkrmaaamg4367 [place] [phone]. Selenaneil Deuce Urea nitrogen [Mass/Vol] 40.0 mg/dL Critically high 7.0-18.0 [facility] Comment on above: Performed By: #### B MP ####[facility] Fqabfduffm9207 [place] [address]Dr. Airam Tripathi Urea nitrogen/Creatinine [Mass ratio] 27.8 mg/mg Normal [facility] Comment on above: Performed By: #### B MP ####[facility] Rhjbpfhnlu0865[address] [place], [place] [address]Dr. Airam Tripathi Anion gap [Moles/Vol] 10.6 mmol/L Normal [facility] Comment on above: Performed By: #### B MP ####[facility] Cjmwhgqgyo498[address] [place], [place] [address]Dr. Airam Tripathi Calcium [Mass/Vol] 7.9 mg/dL Critically low 8.5-10.1 [facility] Comment on above: Performed By: #### B MP ####[facility] Kwocczhyao6699[address] [place], [place] [address]Dr. Airam Tripathi Chloride [Moles/Vol] 101 mmol/L Normal 98-107 [facility] Comment on above: Performed By: #### B MP ####[facility] Ctfjcpfpmr[address] [place], [place] [address]Dr. Airam Tripathi CO2 [Moles/Vol] 27.4 mmol/L Normal 21.0-32.0 [facility] Comment on above: Performed By: #### B MP ####[facility] Osikrftqfo5288[address] [place], [place] [address]Dr. Airam Tripathi Creatinine [Mass/Vol] 1.35 mg/dL Critically high 0.55-1.02 [facility] Comment on above: Performed By: #### B MP ####[facility] Pmsnwggfjs[address] [place], [place] [address]Dr. Airam Tripathi EGFR-AF SLOVENIAN 48 mL/min/1.73m2 Critically low >=60 [facility] Comment on above: Performed By: #### B MP ####[facility] Bapmyjvlow8771 [place] [address]Dr. Airam Deuce EGFR-NON AF SLOVENIAN 40 mL/min/1.73m2 Critically low >=60 [facility] Comment on above: Performed By: #### B MP ####[facility] Jmdptmkwxk0814 [place] [address]Dr. Airam Tripathi Glucose [Mass/Vol] 114 mg/dL Critically high 74-106 [facility] Comment on above: Performed By: #### B MP ####[facility] Wlcjxkdzhf2488 [place] [address]Dr. Airam Tripathi Potassium [Moles/Vol] 5.0 mmol/L Normal 3.5-5.1 [facility] Comment on above: Performed By: #### B MP ####[facility] Upcgecnzqy832[address] [place], [place] [address]Dr. Airam Tripathi Sodium [Moles/Vol] 134 mmol/L Critically low 136-145 [facility] Comment on above: Performed By: #### B MP ####[facility] Ldggjijqww[address] [place], [place] [address]Dr. Airam Tripathi Urea nitrogen [Mass/Vol] 40.0 mg/dL Critically high 7.0-18.0 [facility] Comment on above: Performed By: #### B MP ####[facility] Mvqxdhumln5[address] [place], [place] [address]Dr. Airam Tripathi Urea nitrogen/Creatinine [Mass ratio] 29.6 mg/mg Normal [facility] Comment on above: Performed By: #### B MP ####[facility] Sxgxyyinww7144[address] [place], [place] [address]Dr. Airam Tripathi PTH INTACTon 09-20-2022 PTH, Intact 104 pg/mL Critically high 15-65 [facility] Comment on above: Performed By: #### P THINT ####[facility] Gvfwryribx69[address] [place], [place] [address]Dr. Airam Tripathi BNPon 09-19-2022 Natriuretic peptide B (Bld) [Mass/Vol] 1272.0 pg/mL Critically high <=900.0 [facility] Comment on above: Performed By: #### H STROPN, TSH, K, BNP ####[facility] Dstplpykul9074 [place] [address]Dr. Airam Tripathi CBC AUTO DIFFon 09-19-2022 BASO # 0.0 103/ul Normal 0.0-0.1 [facility] Comment on above: Performed By: #### C BC ####[facility] Nrfmzkxwqr4[address] [place], [place] [address]Dr. Airam Deuce Basophils/100 WBC (Bld) 0.5 % Normal 0.2-2.0 [facility] Comment on above: Performed By: #### C BC ####[facility] Fkjchlstra[address] [place], [place] [address]Dr. Airam Tripathi EO # 0.2 103/ul Normal 0.0-0.7 [facility] Comment on above: Performed By: #### C BC ####[facility] Rpvlxnoxen8[address] [place], [place] [address]Dr. Selenaneil Tripathi Eosinophils/100 WBC (Bld) 2.6 % Normal 0.9-7.0 [facility] Comment on above: Performed By: #### C BC ####[facility] Ycwedezlfc59[address] [place], [place] [address]Dr. Airam Tripathi Erythrocyte distribution width (RBC) [Ratio] 15.5 % Critically high 11.0-15.0 [facility] Comment on above: Performed By: #### C BC ####[facility] Kkubwvaeql95[address] [place], [place] [address]Dr. Airam Tripathi Hematocrit (Bld) [Volume fraction] 31.1 % Critically low 36.0-48.0 [facility] Comment on above: Performed By: #### C BC ####[facility] Ylcuogssec38[address] [place], [place] [address]Dr. Airam Tripathi Hemoglobin (Bld) [Mass/Vol] 9.6 g/dL Critically low 12.0-16.0 [facility] Comment on above: Performed By: #### C BC ####[facility] Zcpcaumbrx0961 [place] [id number]. Airam Tripathi IG # 0.04 10e3/ul Critically high 0.00-0.03 [facility] Comment on above: Performed By: #### C BC ####[facility] Rnalvyroto9564 [place] [address]Dr. Airam Deuce IG % 0.5 % Normal 0.0-0.5 [facility] Comment on above: Performed By: #### C BC ####[facility] Mdevmtztha6104 [place] [address]Dr. Airam Tripathi LYMPH # 1.0 103/ul Critically low 1.2-3.8 [facility] Comment on above: Performed By: #### C BC ####[facility] Rbyxgtszdv6583 [place] [address]Dr. Airam Tripathi Lymphocytes/100 WBC (Bld) 12.0 % Critically low 20.5-60.0 [facility] Comment on above: Performed By: #### C BC ####[facility] Hgoxmpegxp3467 [place] [address]Dr. Selenaneil Tripathi MANUAL DIFF REQ NO Normal [facility] Comment on above: Performed By: #### C BC ####[facility] Otimpnfrgo6891 [place] [address]Dr. Airam Deuce MCH (RBC) [Entitic mass] 28.2 pg Normal 26.7-34.0 [facility] Comment on above: Performed By: #### C BC ####[facility] Xqikudkqql3471 [place] [address]Dr. Airam Deuce MCHC (RBC) [Mass/Vol] 30.9 g/dL Normal 29.9-35.2 [facility] Comment on above: Performed By: #### C BC ####[facility] Tpwacmthpl6109 [place] [address]DrKianna Airam Deuce MCV (RBC) [Entitic vol] 91.5 fL Normal 81.0-99.0 [facility] Comment on above: Performed By: #### C BC ####[facility] Wdrvpsprln9093 [place] [id number]. Airam Tripathi MONO # 0.5 103/ul Normal 0.3-0.8 [facility] Comment on above: Performed By: #### C BC ####[facility] Hzetbpxnuj3062 [place] [address]Dr. Airam Tripathi Monocytes/100 WBC (Bld) 6.4 % Normal 1.7-12.0 [facility] Comment on above: Performed By: #### C BC ####[facility] Ajucrekmju9814 [place] [address]Dr. Airam Tripathi NEUT # 6.4 103/ul Normal 1.4-6.5 [facility] Comment on above: Performed By: #### C BC ####[facility] Csghitfuic0940 [place] [address]Dr. Airam Tripathi Neutrophils/100 WBC (Bld) 78.0 % Critically high 43.0-75.0 [facility] Comment on above: Performed By: #### C BC ####[facility] Rzyhthfnit6898 [place] [address]Dr. Airam Tripathi Platelet mean volume (Bld) [Entitic vol] 9.1 fL Critically low 9.5-13.5 [facility] Comment on above: Performed By: #### C BC ####[facility] Nginbdbrqr6614 [place] [address]Dr. Airam Tripathi PLT 318 103/ul Normal 150-450 [facility] Comment on above: Performed By: #### C BC ####[facility] Crphcploum24[address] [place], [place] [address]Dr. Airam Tripathi RBC 3.40 106/ul Critically low 4.20-5.40 [facility] Comment on above: Performed By: #### C BC ####[facility] Orfndppspc9[address] [place], [place] [address]Dr. Airam Tripathi WBC 8.2 103/ul Normal 4.0-11.0 [facility] Comment on above: Performed By: #### C BC ####[facility] Asiofyetsh7068[address] [place], [place] [address]Dr. Airam Tripathi Covid-19 PCR (CVDTBH)on 08-25 SARS-CoV-2 (COVID-19) RNA MIKE+probe Ql (Unsp spec) Not detected Normal NOT DETECTED [facility] Comment on above: Result Comment: When diagnostic [...] for this test is supported by the Child Care Giver of Health and Human Service's declaration that [...] be used). Performed By: #### C VDTBH ####[facility] Aovbuhrpmu9491 [place] [address]Dr. Airam Tripathi LACTATE/LACTIC ACIDon 2022 Lactate [Moles/Vol] 0.4 mmol/L Normal 0.4-2.0 [facility] Comment on above: Performed By: #### L ACT ####[facility] Paibkbqfvm2[address] [place], [place] [address]Dr. Airam Tripathi POTASSIUMon 09-19-2022 Potassium [Moles/Vol] 6.3 mmol/L Critically high 3.5-5.1 [facility] Comment on above: Performed By: #### H STROPN, TSH, K, BNP ####[facility] Zbcvfxgliy9657 [place] [address]Dr. Airam Tripathi PROF 14(COMP METB)on 023 Albumin [Mass/Vol] 3.5 g/dL Normal 3.4-5.0 [facility] Comment on above: Performed By: #### C MP ####[facility] Pyrwvoisgt8869 [place] [phone]. Airam Tripathi Albumin/Globulin [Mass ratio] 1.1 {ratio} Normal [facility] Comment on above: Performed By: #### C MP ####[facility] Piionjtpoy7694 [place] [phone]. Airam Tripathi ALP [Catalytic activity/Vol] 113 U/L Normal 46-116 [facility] Comment on above: Performed By: #### C MP ####[facility] Eslukqfoxt0965 [place] [address]Dr. Airam Deuce ALT [Catalytic activity/Vol] 26 U/L Normal 14-59 [facility] Comment on above: Performed By: #### C MP ####[facility] Tadnhhdjgc3681 [place] [address]Dr. Airam Tripathi Anion gap [Moles/Vol] 11.5 mmol/L Normal [facility] Comment on above: Performed By: #### C MP ####[facility] Ezafzeyrwg4364[address] [place], [place] [address]Dr. Airam Deuce AST [Catalytic activity/Vol] 24 U/L Normal 15-37 [facility] Comment on above: Performed By: #### C MP ####[facility] Ktpkaiqruh704[address] [place], [place] [address]Dr. Airam Deuce Bilirubin [Mass/Vol] 0.3 mg/dL Normal 0.2-1.0 [facility] Comment on above: Performed By: #### C MP ####[facility] Igiyniufgs596[address] [place], [place] [address]Dr. Selenaneil Tripathi Calcium [Mass/Vol] 8.9 mg/dL Normal 8.5-10.1 [facility] Comment on above: Performed By: #### C MP ####[facility] Hgaqwgnabm85[address] [place], [place] [address]Dr. Airam Tripathi Chloride [Moles/Vol] 103 mmol/L Normal 98-107 [facility] Comment on above: Performed By: #### C MP ####[facility] Bvgxdiuyfv425[address] [place], [place] [address]Dr. Airam Tripathi CO2 [Moles/Vol] 27.8 mmol/L Normal 21.0-32.0 [facility] Comment on above: Performed By: #### C MP ####[facility] Msdpkgmyfb0956 [place] [address]Dr. Airam Tripathi Creatinine [Mass/Vol] 1.28 mg/dL Critically high 0.55-1.02 [facility] Comment on above: Performed By: #### C MP ####[facility] Cwetjvfgwe7059 [place] [address]Dr. Airam Tripathi EGFR-AF SLOVENIAN 52 mL/min/1.73m2 Critically low >=60 [facility] Comment on above: Performed By: #### C MP ####[facility] Ryocslhfhi2220[address] [place], [place] [address]Dr. Airam Deuce EGFR-NON AF SLOVENIAN 43 mL/min/1.73m2 Critically low >=60 [facility] Comment on above: Performed By: #### C MP ####[facility] Zcksvjpgre5947[address] [place], [place] [address]Dr. Airam Tripathi Globulin (S) [Mass/Vol] 3.2 g/dL Normal [facility] Comment on above: Performed By: #### C MP ####[facility] Kosszmlmyd158[address] [place], [place] [address]Dr. Airam Deuce Glucose [Mass/Vol] 95 mg/dL Normal 74-106 [facility] Comment on above: Performed By: #### C MP ####[facility] Zmswjmssax039[address] [place], [place] [address]Dr. Airam Deuce Potassium [Moles/Vol] 6.3 mmol/L Critically high 3.5-5.1 [facility] Comment on above: Performed By: #### C MP ####[facility] Qmqtadarlr984[address] [place], [place] [address]Dr. Airam Tripathi Protein [Mass/Vol] 6.7 g/dL Normal 6.4-8.2 [facility] Comment on above: Performed By: #### C MP ####[facility] Psklaywnzh7660[address] [place], [place] [address]Dr. Airam Tripathi Sodium [Moles/Vol] 135 mmol/L Critically low 136-145 [facility] Comment on above: Performed By: #### C MP ####[facility] Naotgnyzjf3213 [place] [address]Dr. Airam Tripathi Urea nitrogen [Mass/Vol] 42.0 mg/dL Critically high 7.0-18.0 [facility] Comment on above: Performed By: #### C MP ####[facility] Yufoljbeer1062 [place] [address]Dr. Airam Deuce Urea nitrogen/Creatinine [Mass ratio] 32.8 mg/mg Normal [facility] Comment on above: Performed By: #### C MP ####[facility] Nibhzufkgl0194 [place] [address]Dr. Airam Deuce TROPONIN, HIGH SENSITIVITYon 09-19-2022 HSTROP 7.1 pg/mL Normal 4.0-51.3 [facility] Comment on above: Result Comment: CUT- OFF POINTS HAVE BEEN ESTABLISHED BASED ON THE FOURTH UNIVERSAL DEFINITIONS OF MYOCARDIALINFARCTION. THE UPPER REFERENCE LIMIT (URL) OF TROPONIN, DEFINED THE 99TH PERCENTILE OFcTnI DISTRIBUTION IN A REFERENCE POPULATION, HAS BEEN CONFIRMED THE DECISION THRESHOLDFOR GA DIAGNOSIS. Performed By: #### H STROPN, TSH, K, BNP ####[facility] Klhbbavojp7599 [place] [address]Dr. Airam Tripathi TSHon 09-19-2022 TSH 0.028 uIU/mL Critically low 0.358-3.740 [facility] Comment on above: Performed By: #### H STROPN, TSH, K, BNP ####[facility] Xhbvzpetua7275 [place] [address]Dr. Airam Tripathi UA RANDOMon 09-19-2022 Bilirubin Ql (U) Negative Normal NEGATIVE [facility] Comment on above: Performed By: #### U A ####[facility] Qwagazlusj5373 [place] [address]Dr. Airam Tripathi Clarity (U) CLEAR Normal CLEAR [facility] Comment on above: Performed By: #### U A ####[facility] Fkdnvwtsfl5622 [place] [address]Dr. Airam Tripathi Color (U) LT. YELLOW Normal YELLOW [facility] Comment on above: Performed By: #### U A ####[facility] Yyclvqopqu1148 [place] [address]Dr. Airam Tripathi Glucose Ql (U) Negative Normal NEGATIVE [facility] Comment on above: Performed By: #### U A ####[facility] Nigvhjhztn4686[address] [place], [place] [address]Dr. Airam Tripathi Hemoglobin Ql (U) Negative Normal NEGATIVE [facility] Comment on above: Performed By: #### U A ####[facility] Wlxxtvtucz4485[address] [place], [place] [address]Dr. Airam Tripathi Ketones Ql (U) Negative Normal NEGATIVE [facility] Comment on above: Performed By: #### U A ####[facility] Iisvwqruvw9385[address] [place], [place] [address]Dr. Airam Tripathi LEUKOCYTES TRACE Abnormal NEGATIVE [facility] Comment on above: Performed By: #### U A ####[facility] Azflaxwhwn818[address] [place], [place] [address]Dr. Airam Tripathi Nitrite Ql (U) Negative Normal NEGATIVE [facility] Comment on above: Performed By: #### U A ####[facility] Dpzewwknqp87[address] [place], [place] [address]Dr. Airam Tripathi pH (U) 5.5 [pH] Normal 5-9 [facility] Comment on above: Performed By: #### U A ####[facility] Yejyaooxdt404[address] [place], [place] [address]Dr. Airam Tripathi SPEC GRAVITY 1.010 Normal 1.005-<=1.02 5 [facility] Comment on above: Performed By: #### U A ####[facility] Tblwkarovh528[address] [place], [place] [address]Dr. Airam Tripathi UA PROTEIN Negative Normal NEGATIVE/ TRACE [facility] Comment on above: Performed By: #### U A ####[facility] Aynisjwluj8846[address] [place], [place] [address]Dr. Airam Tripathi Urobilinogen Qn (U) 0.2 {Ligia'U}/dL Normal 0.2 - 1. 0 [facility] Comment on above: Performed By: #### U A ####[facility] Jbtxxibsmn3394 [place] [address]Dr. Airam Tripathi URIC ACID SERUMon 09-19-2022 Urate [Mass/Vol] 6.9 mg/dL Critically high 2.6-6.0 [facility] Comment on above: Performed By: #### U TRESSA ####[facility] Rnjkhohfax[address] [place], [place] [address]Dr. Airam Tripathi URINE T PROTEIN CREAT RATIOo n 09-19-2022 UR TOTAL PROTEIN <6.0 Normal <=12.0 [facility] Comment on above: Performed By: #### U RTPCR ####[facility] Lkbvnjpiyo17[address] [place], [place] [address]Dr. Airam Tripathi URINE CREAT 15.12 mg/dL Critically low 20.00-300.00 [facility] Comment on above: Performed By: #### U RTPCR ####[facility] Vtdhccxnqa35[address] [place], [place] [address]Dr. Airam Tripathi VITAMIN D 25 OHon 09-19-2022 VIT D 25-OH 75.9 ng/mL Normal [facility] Comment on above: Performed By: #### V ITAD ####[facility] Zpoqfkajuz33[address] [place], [place] [address]Dr. Airam Tripathi VIT D RANGES SEE BELOW Normal [facility] Comment on above: Result Comment: <20 ng/mL Vit D deficient 20 - <30 ng/mL Vit D insufficient 30 - 100 ng/mL Vit D sufficient >100 ng/mL Potential Toxicity Performed By: #### V ITAD ####[facility] Mvgqozhzyt0550[address] [place], [place] [address]Dr. Airam Tripathi OSMOLALITYon 09-14-2022 Osmolality [Osmolality] 272 mosm/kg Critically low 275-295 [facility] Comment on above: Performed By: #### O SMO ####[facility] Thkgjlevzn4[address] [place], [place] [address]Dr. Airam Tripathi CBC AUTO DIFFon 09-12-2022 BASO # 0.0 103/ul Normal 0.0-0.1 [facility] Comment on above: Performed By: #### C BC ####[facility] Ifqjcnxwma8967 [place] [address]Dr. Airam Tripathi Basophils/100 WBC (Bld) 0.5 % Normal 0.2-2.0 [facility] Comment on above: Performed By: #### C BC ####[facility] Urnmiawykh5044 [place] [address]Dr. Airam Tripathi EO # 0.2 103/ul Normal 0.0-0.7 [facility] Comment on above: Performed By: #### C BC ####[facility] Vlinojkcsl6954 [place] [address]Dr. Airam Tripathi Eosinophils/100 WBC (Bld) 2.4 % Normal 0.9-7.0 [facility] Comment on above: Performed By: #### C BC ####[facility] Tnrwgdluwg29[address] [place], [place] [address]Dr. Airam Tripathi Erythrocyte distribution width (RBC) [Ratio] 14.8 % Normal 11.0-15.0 [facility] Comment on above: Performed By: #### C BC ####[facility] Evvkotemqg7148 [place] [address]Dr. Airam Tripathi Hematocrit (Bld) [Volume fraction] 32.6 % Critically low 36.0-48.0 [facility] Comment on above: Performed By: #### C BC ####[facility] Fahnjhzbdy88[address] [place], [place] [address]Dr. Airam Tripathi Hemoglobin (Bld) [Mass/Vol] 10.1 g/dL Critically low 12.0-16.0 [facility] Comment on above: Performed By: #### C BC ####[facility] Eafbljoleq66[address] [place], [place] [address]Dr. Airam Tripathi IG # 0.05 10e3/ul Critically high 0.00-0.03 [facility] Comment on above: Performed By: #### C BC ####[facility] Wqqbeqnepa3423 [place] [id number]. Airam Tripathi IG % 0.7 % Critically high 0.0-0.5 [facility] Comment on above: Performed By: #### C BC ####[facility] Newcsjfdeo5707 [place] [id number]. Airam Tripathi LYMPH # 1.9 103/ul Normal 1.2-3.8 [facility] Comment on above: Performed By: #### C BC ####[facility] Jlwnggusef26[address] [place] [id number]. Airam Tripathi Lymphocytes/100 WBC (Bld) 24.7 % Normal 20.5-60.0 [facility] Comment on above: Performed By: #### C BC ####[facility] Wzbmcbcdrp7[address] [place] [address]Dr. Airam Tripathi MANUAL DIFF REQ NO Normal [facility] Comment on above: Performed By: #### C BC ####[facility] Ygomhkcyyu0377 [place] [address]Dr. Airam Tripathi MCH (RBC) [Entitic mass] 28.0 pg Normal 26.7-34.0 [facility] Comment on above: Performed By: #### C BC ####[facility] Qlfzeyibbl2271 [place] [phone]. Airam Tripathi MCHC (RBC) [Mass/Vol] 31.0 g/dL Normal 29.9-35.2 [facility] Comment on above: Performed By: #### C BC ####[facility] Vgdcshojkd6025 [place] [phone]. Airam Tripathi MCV (RBC) [Entitic vol] 90.3 fL Normal 81.0-99.0 [facility] Comment on above: Performed By: #### C BC ####[facility] Mxwcbcswih0728 [place] [address]Dr. Airam Deuce MONO # 0.5 103/ul Normal 0.3-0.8 [facility] Comment on above: Performed By: #### C BC ####[facility] Nfxaxmagqk5467 [place] [phone]. iAram Tripathi Monocytes/100 WBC (Bld) 6.0 % Normal 1.7-12.0 [facility] Comment on above: Performed By: #### C BC ####[facility] Gssvnmxhhw7538 [place] [phone]. Airam Tripathi NEUT # 5.0 103/ul Normal 1.4-6.5 [facility] Comment on above: Performed By: #### C BC ####[facility] Zcownzzpuy1199 [place] [address]Dr. Airam Tripathi Neutrophils/100 WBC (Bld) 65.7 % Normal 43.0-75.0 [facility] Comment on above: Performed By: #### C BC ####[facility] Huzkfgdaqs5534 [place] [address]Dr. Airam Tripathi Platelet mean volume (Bld) [Entitic vol] 9.5 fL Normal 9.5-13.5 [facility] Comment on above: Performed By: #### C BC ####[facility] Hejzaxfsid7762 [place] [phone]. Airam Tripathi PLT 307 103/ul Normal 150-450 [facility] Comment on above: Performed By: #### C BC ####[facility] Qrgrivqrlq3219 [place] [phone]. Airam Tripathi RBC 3.61 106/ul Critically low 4.20-5.40 [facility] Comment on above: Performed By: #### C BC ####[facility] Smatmtpnzv2047 [place] [address]Dr. Airam Tripathi WBC 7.5 103/ul Normal 4.0-11.0 [facility] Comment on above: Performed By: #### C BC ####[facility] Wwkjxbwuhl6691 [place] [address]Dr. Airam Deuce PROF 14(COMP METB)on 023 Albumin [Mass/Vol] 3.5 g/dL Normal 3.4-5.0 [facility] Comment on above: Performed By: #### C MP ####[facility] Wlbzbammfg4106 [place] [address]Dr. iAram Tripathi Albumin/Globulin [Mass ratio] 1.1 {ratio} Normal [facility] Comment on above: Performed By: #### C MP ####[facility] Sngchrsqbk8648 [place] [address]Dr. Airam Deuce ALP [Catalytic activity/Vol] 126 U/L Critically high 46-116 [facility] Comment on above: Performed By: #### C MP ####[facility] Hcxxdfeqdb57[address] [place], [place] [address]Dr. Airam Deuce ALT [Catalytic activity/Vol] 18 U/L Normal 14-59 [facility] Comment on above: Performed By: #### C MP ####[facility] Bdevzupwny9379 [place] [address]Dr. Airam Tripathi Anion gap [Moles/Vol] 11.1 mmol/L Normal [facility] Comment on above: Performed By: #### C MP ####[facility] Sndrndynvm734[address] [place], [place] [address]Dr. Airam Deuce AST [Catalytic activity/Vol] 26 U/L Normal 15-37 [facility] Comment on above: Performed By: #### C MP ####[facility] Cjurixhrxe026[address] [place], [place] [address]Dr. Selenaneil Tripathi Bilirubin [Mass/Vol] 0.3 mg/dL Normal 0.2-1.0 [facility] Comment on above: Performed By: #### C MP ####[facility] Pwfhaatcxm4084[address] [place], [place] [address]Dr. Selenaneil Tripathi Calcium [Mass/Vol] 8.5 mg/dL Normal 8.5-10.1 [facility] Comment on above: Performed By: #### C MP ####[facility] Cstukeegdi9086[address] [place], [place] [address]Dr. Airam Tripathi Chloride [Moles/Vol] 98 mmol/L Normal 98-107 [facility] Comment on above: Performed By: #### C MP ####[facility] Wlsxmgyrjz9619[address] [place], [place] [address]Dr. Airam Deuce CO2 [Moles/Vol] 23.9 mmol/L Normal 21.0-32.0 [facility] Comment on above: Performed By: #### C MP ####[facility] Qjqzjibpjj7329 [place] [address]Dr. Airam Deuce Creatinine [Mass/Vol] 1.40 mg/dL Critically high 0.55-1.02 [facility] Comment on above: Performed By: #### C MP ####[facility] Tghftawlib8306[address] [place], [place] [address]Dr. Airam Deuce EGFR-AF SLOVENIAN 46 mL/min/1.73m2 Critically low >=60 [facility] Comment on above: Performed By: #### C MP ####[facility] Xzddghjjrk88112[address] [place], [place] [address]Dr. Selenaneil Deuce EGFR-NON AF SLOVENIAN 38 mL/min/1.73m2 Critically low >=60 [facility] Comment on above: Performed By: #### C MP ####[facility] Pvznktvgvq5629[address] [place], [place] [address]Dr. Airam Deuce Globulin (S) [Mass/Vol] 3.3 g/dL Normal [facility] Comment on above: Performed By: #### C MP ####[facility] Zpfjahavhl3557[address] [place], [place] [address]Dr. Airam Tripathi Glucose [Mass/Vol] 72 mg/dL Critically low 74-106 [facility] Comment on above: Performed By: #### C MP ####[facility] Mupygcmxhw3158[address] [place], [place] [address]Dr. Airam Deuce Potassium [Moles/Vol] 5.0 mmol/L Normal 3.5-5.1 [facility] Comment on above: Performed By: #### C MP ####[facility] Sydwfccdpe0006[address] [place], [place] [address]Dr. Airam Tripathi Protein [Mass/Vol] 6.8 g/dL Normal 6.4-8.2 [facility] Comment on above: Performed By: #### C MP ####[facility] Zuclnbkcou919[address] [place], [place] [address]Dr. Airam Tripathi Sodium [Moles/Vol] 128 mmol/L Critically low 136-145 [facility] Comment on above: Performed By: #### C MP ####[facility] Zwraqkcnar1537[address] [place], [place] [address]Dr. Airam Tripathi Urea nitrogen [Mass/Vol] 27.0 mg/dL Critically high 7.0-18.0 [facility] Comment on above: Performed By: #### C MP ####[facility] Fonrsakwrf4428[address] [place], [place] [address]Dr. Airam Tripathi Urea nitrogen/Creatinine [Mass ratio] 19.3 mg/mg Normal [facility] Comment on above: Performed By: #### C MP ####[facility] Reocixkuvr3948[address] [place], [place] [address]Dr. Airam Tripathi OSMOLALITYon 09-10-2022 Osmolality [Osmolality] 275 mosm/kg Normal 275-295 [facility] Comment on above: Performed By: #### O SMO ####[facility] Hsmhmdthww855[address] [place], [place] [address]Dr. Airam Tripathi CBC AUTO DIFFon 09-08-2022 BASO # 0.0 103/ul Normal 0.0-0.1 [facility] Comment on above: Performed By: #### C BC ####[facility] Tdrlkdkxsv6424[address] [place], [place] [address]Dr. Airam Deuce Basophils/100 WBC (Bld) 0.5 % Normal 0.2-2.0 [facility] Comment on above: Performed By: #### C BC ####[facility] Nsxwnswhmc299[address] [place], [place] [address]Dr. Airam Tripathi EO # 0.1 103/ul Normal 0.0-0.7 [facility] Comment on above: Performed By: #### C BC ####[facility] Panaiaxaff7084[address] [place], [place] [address]Dr. Airam Deuce Eosinophils/100 WBC (Bld) 1.7 % Normal 0.9-7.0 [facility] Comment on above: Performed By: #### C BC ####[facility] Bdhdgcdsal0126 [place] [address]Dr. Airam Tripathi Erythrocyte distribution width (RBC) [Ratio] 14.7 % Normal 11.0-15.0 [facility] Comment on above: Performed By: #### C BC ####[facility] Vfqbhxopig7073 [place] [address]Dr. Airam Tripathi Hematocrit (Bld) [Volume fraction] 30.3 % Critically low 36.0-48.0 [facility] Comment on above: Performed By: #### C BC ####[facility] Otyrpdtygi3527[address] [place], [place] [address]Dr. Airam Tripathi Hemoglobin (Bld) [Mass/Vol] 9.3 g/dL Critically low 12.0-16.0 [facility] Comment on above: Performed By: #### C BC ####[facility] Apfwibewmm214[address] [place], [place] [address]Dr. Airam Tripathi IG # 0.03 10e3/ul Normal 0.00-0.03 [facility] Comment on above: Performed By: #### C BC ####[facility] Bdozhjljch9350[address] [place], [place] [address]Dr. Airam Tripathi IG % 0.5 % Normal 0.0-0.5 [facility] Comment on above: Performed By: #### C BC ####[facility] Sdfnqwbuil027[address] [place], [place] [address]Dr. Airam Tripathi LYMPH # 0.9 103/ul Critically low 1.2-3.8 [facility] Comment on above: Performed By: #### C BC ####[facility] Wgmbueixzc4066[address] [place], [place] [address]Dr. Airam Deuce Lymphocytes/100 WBC (Bld) 13.6 % Critically low 20.5-60.0 [facility] Comment on above: Performed By: #### C BC ####[facility] Touzieocfu5605[address] [place], [place] [address]Dr. Airam Tripathi MANUAL DIFF REQ NO Normal [facility] Comment on above: Performed By: #### C BC ####[facility] Eqastlfzku5780 [place] [phone]. Airam Tripathi MCH (RBC) [Entitic mass] 27.4 pg Normal 26.7-34.0 [facility] Comment on above: Performed By: #### C BC ####[facility] Zugpssibrp5866 [place] [phone]. Airam Tripathi MCHC (RBC) [Mass/Vol] 30.7 g/dL Normal 29.9-35.2 [facility] Comment on above: Performed By: #### C BC ####[facility] Bhxzjwvtal2007[address] [place], [place] [address]Dr. Airam Tripathi MCV (RBC) [Entitic vol] 89.4 fL Normal 81.0-99.0 [facility] Comment on above: Performed By: #### C BC ####[facility] Zwwgzooiof829[address] [place], [place] [address]Dr. Airam Deuce MONO # 0.5 103/ul Normal 0.3-0.8 [facility] Comment on above: Performed By: #### C BC ####[facility] Tlqyfiwktn9120[address] [place], [place] [address]Dr. Airam Deuce Monocytes/100 WBC (Bld) 8.0 % Normal 1.7-12.0 [facility] Comment on above: Performed By: #### C BC ####[facility] Mkceisrgsh8[address] [place], [place] [address]Dr. Airam Tripathi NEUT # 5.0 103/ul Normal 1.4-6.5 [facility] Comment on above: Performed By: #### C BC ####[facility] Sjgnodaktc7[address] [place], [place] [address]Dr. Airam Deuce Neutrophils/100 WBC (Bld) 75.7 % Critically high 43.0-75.0 [facility] Comment on above: Performed By: #### C BC ####[facility] Ucfdpdhjpp1926[address] [place], [place] [address]Dr. Airam Deuce Platelet mean volume (Bld) [Entitic vol] 10.4 fL Normal 9.5-13.5 [facility] Comment on above: Performed By: #### C BC ####[facility] Esvwisatez5972 [place] [phone]. Airam Tripathi PLT 315 103/ul Normal 150-450 [facility] Comment on above: Performed By: #### C BC ####[facility] Ljzwsaijwy7288 [place] [phone]. Airam Tripathi RBC 3.39 106/ul Critically low 4.20-5.40 [facility] Comment on above: Performed By: #### C BC ####[facility] Evwrbwdekq2609 [place] [phone]. Airam Tripathi WBC 6.5 103/ul Normal 4.0-11.0 [facility] Comment on above: Performed By: #### C BC ####[facility] Lytpromhop5905 [place] [address]Dr. Airam Tripathi PROF 14(COMP METB)on 023 Albumin [Mass/Vol] 3.1 g/dL Critically low 3.4-5.0 [facility] Comment on above: Performed By: #### C MP ####[facility] Sngvrdhhgj1258 [place] [address]Dr. Airam Tripathi Albumin/Globulin [Mass ratio] 1.0 {ratio} Normal [facility] Comment on above: Performed By: #### C MP ####[facility] Fzsnhicotd3977 [place] [address]Dr. Airam Tripahti ALP [Catalytic activity/Vol] 126 U/L Critically high 46-116 [facility] Comment on above: Performed By: #### C MP ####[facility] Kdzkhbwsjm6864 [place] [address]Dr. Airam Tripathi ALT [Catalytic activity/Vol] 18 U/L Normal 14-59 [facility] Comment on above: Performed By: #### C MP ####[facility] Psrtzpohbg4109 [place] [address]Dr. Airam Tripathi Anion gap [Moles/Vol] 11.4 mmol/L Normal [facility] Comment on above: Performed By: #### C MP ####[facility] Ncsgzjubxa4598 [place] [phone]. Airam Tripathi AST [Catalytic activity/Vol] 25 U/L Normal 15-37 [facility] Comment on above: Performed By: #### C MP ####[facility] Kxnztelvsv6173 [place] [phone]. Airam Tripathi Bilirubin [Mass/Vol] 0.3 mg/dL Normal 0.2-1.0 [facility] Comment on above: Performed By: #### C MP ####[facility] Ungamgzuuq2690 [place] [address]Dr. Airam Tripathi Calcium [Mass/Vol] 8.6 mg/dL Normal 8.5-10.1 [facility] Comment on above: Performed By: #### C MP ####[facility] Dfvzvrslzk4831 [place] [address]Dr. Airam Tripathi Chloride [Moles/Vol] 97 mmol/L Critically low 98-107 [facility] Comment on above: Performed By: #### C MP ####[facility] Bbfjposmdn4[address] [place], [place] [address]Dr. Airam Tripathi CO2 [Moles/Vol] 26.1 mmol/L Normal 21.0-32.0 [facility] Comment on above: Performed By: #### C MP ####[facility] Qpdslkelmb4290 [place] [phone]. Airam Tripathi Creatinine [Mass/Vol] 1.07 mg/dL Critically high 0.55-1.02 [facility] Comment on above: Performed By: #### C MP ####[facility] Yuxvutjzhb9394 [place] [phone]. Airam Deuce EGFR-AF SLOVENIAN >60 Normal >=60 [facility] Comment on above: Performed By: #### C MP ####[facility] Zjhkvnjqsb9199 [place] [phone]. Airam Deuce EGFR-NON AF SLOVENIAN 52 mL/min/1.73m2 Critically low >=60 [facility] Comment on above: Performed By: #### C MP ####[facility] Kexstrtsre8304 [place] [address]Dr. Airam Tripathi Globulin (S) [Mass/Vol] 3.2 g/dL Normal [facility] Comment on above: Performed By: #### C MP ####[facility] Vwapdinzzl8720[address] [place], [place] [address]Dr. Airam Tripathi Glucose [Mass/Vol] 83 mg/dL Normal 74-106 [facility] Comment on above: Performed By: #### C MP ####[facility] Ognkarmaap643[address] [place], [place] [address]Dr. Airam Tripathi Potassium [Moles/Vol] 5.5 mmol/L Critically high 3.5-5.1 [facility] Comment on above: Performed By: #### C MP ####[facility] Pzadelcusb5625[address] [place], [place] [address]Dr. Airam Tripathi Protein [Mass/Vol] 6.3 g/dL Critically low 6.4-8.2 [facility] Comment on above: Performed By: #### C MP ####[facility] Bfwgxzklvg2101[address] [place], [place] [address]Dr. Airam Triptahi Sodium [Moles/Vol] 129 mmol/L Critically low 136-145 [facility] Comment on above: Performed By: #### C MP ####[facility] Yxdsmjlxkd5294[address] [place], [place] [address]Dr. Airam Tripathi Urea nitrogen [Mass/Vol] 37.0 mg/dL Critically high 7.0-18.0 [facility] Comment on above: Performed By: #### C MP ####[facility] Mchebyqhja4416[address] [place], [place] [address]Dr. Airam Tripathi Urea nitrogen/Creatinine [Mass ratio] 34.6 mg/mg Normal [facility] Comment on above: Performed By: #### C MP ####[facility] Sogbblkhrq3465[address] [place], [place] [address]Dr. Airam Tripathi OSMOLALITYon 09-02-2022 Osmolality [Osmolality] 279 mosm/kg Normal 275-295 [facility] Comment on above: Performed By: #### O SMO ####[facility] Mabbumozfn8287 [place] [address]Dr. Airam Tripathi CBC AUTO DIFFon 08-31-2022 BASO # 0.0 103/ul Normal 0.0-0.1 [facility] Comment on above: Performed By: #### C BC ####[facility] Vqbcjntlfj6239[address] [place], [place] [address]Dr. Airam Deuce Basophils/100 WBC (Bld) 0.4 % Normal 0.2-2.0 [facility] Comment on above: Performed By: #### C BC ####[facility] Bnomjzzhoa6998[address] [place], [place] [address]Dr. Airam Deuce EO # 0.2 103/ul Normal 0.0-0.7 [facility] Comment on above: Performed By: #### C BC ####[facility] Mspylgquun313[address] [place], [place] [address]Dr. Selenaneil Tripathi Eosinophils/100 WBC (Bld) 3.2 % Normal 0.9-7.0 [facility] Comment on above: Performed By: #### C BC ####[facility] Koaqybtvdx4995[address] [place], [place] [address]Dr. Airam Tripathi Erythrocyte distribution width (RBC) [Ratio] 14.4 % Normal 11.0-15.0 [facility] Comment on above: Performed By: #### C BC ####[facility] Taxhsbadro5512[address] [place], [place] [address]Dr. Airam Tripathi Hematocrit (Bld) [Volume fraction] 27.8 % Critically low 36.0-48.0 [facility] Comment on above: Performed By: #### C BC ####[facility] Ykvbqecibw3066[address] [place], [place] [address]Dr. Selenaneil Tripathi Hemoglobin (Bld) [Mass/Vol] 8.7 g/dL Critically low 12.0-16.0 [facility] Comment on above: Performed By: #### C BC ####[facility] Rqrhdqvobu125[address] [place], [place] [address]Dr. Airam Tripathi IG # 0.05 10e3/ul Critically high 0.00-0.03 [facility] Comment on above: Performed By: #### C BC ####[facility] Kkxffdxqkp5619 [place] [phone]. Airam Tripathi IG % 0.7 % Critically high 0.0-0.5 [facility] Comment on above: Performed By: #### C BC ####[facility] Iuzlfobksj5855 [place] [phone]. Airam Tripathi LYMPH # 1.7 103/ul Normal 1.2-3.8 [facility] Comment on above: Performed By: #### C BC ####[facility] Fsbfbkydgr6700 [place] [phone]. Airam Tripathi Lymphocytes/100 WBC (Bld) 23.6 % Normal 20.5-60.0 [facility] Comment on above: Performed By: #### C BC ####[facility] Pqeadltehl5487 [place] [address]Dr. Airam Tripathi MANUAL DIFF REQ NO Normal [facility] Comment on above: Performed By: #### C BC ####[facility] Ckvuffhaep[address] [place], [place] [address]Dr. Airam Tripathi MCH (RBC) [Entitic mass] 27.8 pg Normal 26.7-34.0 [facility] Comment on above: Performed By: #### C BC ####[facility] Aycsvofqtl3991 [place] [phone]. Airam Tripathi MCHC (RBC) [Mass/Vol] 31.3 g/dL Normal 29.9-35.2 [facility] Comment on above: Performed By: #### C BC ####[facility] Kxrqddydvk[address] [place], [place] [address]Dr. Airam Tripathi MCV (RBC) [Entitic vol] 88.8 fL Normal 81.0-99.0 [facility] Comment on above: Performed By: #### C BC ####[facility] Yptyndwzsg1086 [place] [phone]. Airam Tripathi MONO # 0.5 103/ul Normal 0.3-0.8 [facility] Comment on above: Performed By: #### C BC ####[facility] Atfhdulkfz4987 [place] [phone]. Airam Tripathi Monocytes/100 WBC (Bld) 6.9 % Normal 1.7-12.0 [facility] Comment on above: Performed By: #### C BC ####[facility] Zzgfvvsjck5290 [place] [phone]. Airam Tripathi NEUT # 4.7 103/ul Normal 1.4-6.5 [facility] Comment on above: Performed By: #### C BC ####[facility] Hqpcqkppyj0339 [place] [phone]. Airam Tripathi Neutrophils/100 WBC (Bld) 65.2 % Normal 43.0-75.0 [facility] Comment on above: Performed By: #### C BC ####[facility] Ozplxsiwvh3607 [place] [phone]. Airam Tripathi Platelet mean volume (Bld) [Entitic vol] 9.8 fL Normal 9.5-13.5 [facility] Comment on above: Performed By: #### C BC ####[facility] Hrpezaskur0677 [place] [phone]. Airam Tripathi PLT 225 103/ul Normal 150-450 [facility] Comment on above: Performed By: #### C BC ####[facility] Muiusioyig0101 [place] [phone]. Airam Tripathi RBC 3.13 106/ul Critically low 4.20-5.40 [facility] Comment on above: Performed By: #### C BC ####[facility] Gbkcphytwi6629 [place] [phone]. Airam Tripathi WBC 7.3 103/ul Normal 4.0-11.0 [facility] Comment on above: Performed By: #### C BC ####[facility] Rwmuikuwxr4579 [place] [address]Dr. Airam Tripathi PROF 14(COMP METB)on 023 Albumin [Mass/Vol] 3.0 g/dL Critically low 3.4-5.0 [facility] Comment on above: Performed By: #### C MP ####[facility] Xskedksvjk7430 [place] [address]Dr. Airam Deuce Albumin/Globulin [Mass ratio] 1.1 {ratio} Normal [facility] Comment on above: Performed By: #### C MP ####[facility] Avntlskrco5191 [place] [phone]. Airam Tripathi ALP [Catalytic activity/Vol] 132 U/L Critically high 46-116 [facility] Comment on above: Performed By: #### C MP ####[facility] Tajqgqrzej9636 [place] [address]Dr. Selenaneil Tripathi ALT [Catalytic activity/Vol] 20 U/L Normal 14-59 [facility] Comment on above: Performed By: #### C MP ####[facility] Arxaxabrtu18[address] [place], [place] [address]Dr. Airam Tripathi Anion gap [Moles/Vol] 9.5 mmol/L Normal [facility] Comment on above: Performed By: #### C MP ####[facility] Hqgxmngcix28[address] [place], [place] [address]Dr. Selenaneil Tripathi AST [Catalytic activity/Vol] 25 U/L Normal 15-37 [facility] Comment on above: Performed By: #### C MP ####[facility] Umpstvovmv3137[address] [place], [place] [address]Dr. Airam Tripathi Bilirubin [Mass/Vol] 0.2 mg/dL Normal 0.2-1.0 [facility] Comment on above: Performed By: #### C MP ####[facility] Dpglcisjvg6015[address] [place], [place] [address]Dr. Airam Tripathi Calcium [Mass/Vol] 7.9 mg/dL Critically low 8.5-10.1 [facility] Comment on above: Performed By: #### C MP ####[facility] Hcjnsgqadu57[address] [place], [place] [address]Dr. Airam Tripathi Chloride [Moles/Vol] 97 mmol/L Critically low 98-107 [facility] Comment on above: Performed By: #### C MP ####[facility] Imgqzhtacp8235 [place] [phone]. Airam Tripathi CO2 [Moles/Vol] 27.3 mmol/L Normal 21.0-32.0 [facility] Comment on above: Performed By: #### C MP ####[facility] Kezecagmtp0646 [place] [phone]. Airam Tripathi Creatinine [Mass/Vol] 1.58 mg/dL Critically high 0.55-1.02 [facility] Comment on above: Performed By: #### C MP ####[facility] Pmzjftpekz7672 [place] [phone]. Airam Tripathi EGFR-AF SLOVENIAN 40 mL/min/1.73m2 Critically low >=60 [facility] Comment on above: Performed By: #### C MP ####[facility] Jcfimctjuj3800 [place] [address]Dr. Airam Tripathi EGFR-NON AF SLOVENIAN 33 mL/min/1.73m2 Critically low >=60 [facility] Comment on above: Performed By: #### C MP ####[facility] Ljvohcezth9410 [place] [phone]. Airam Tripathi Globulin (S) [Mass/Vol] 2.8 g/dL Normal [facility] Comment on above: Performed By: #### C MP ####[facility] Kvwqrxigmr4347 [place] [address]Dr. Airam Tripathi Glucose [Mass/Vol] 111 mg/dL Critically high 74-106 [facility] Comment on above: Performed By: #### C MP ####[facility] Irqoflmmol7879 [place] [phone]. Airam Tripathi Potassium [Moles/Vol] 4.8 mmol/L Normal 3.5-5.1 [facility] Comment on above: Performed By: #### C MP ####[facility] Zxbqqqfnje3454 [place] [address]Dr. Airam Triapthi Protein [Mass/Vol] 5.8 g/dL Critically low 6.4-8.2 Th [facility] Comment on above: Performed By: #### C MP ####[facility] Isqwjqwepi5821 [place] [phone]. Airam Tripathi Sodium [Moles/Vol] 129 mmol/L Critically low 136-145 Th [facility] Comment on above: Performed By: #### C MP ####[facility] Yxpzbpxbmq[address] [place], [place] [address]Dr. Airam Tripathi Urea nitrogen [Mass/Vol] 44.0 mg/dL Critically high 7.0-18.0 [facility] Comment on above: Performed By: #### C MP ####[facility] Rdrcvvkxjy75[address] [place], [place] [address]Dr. Airam Tripathi Urea nitrogen/Creatinine [Mass ratio] 27.8 mg/mg Normal [facility] Comment on above: Performed By: #### C MP ####[facility] Hrhpvtuzrb56[address] [place], [place] [address]Dr. Airam Tripathi OSMOLALITYon 08-28-2022 Osmolality [Osmolality] 288 mosm/kg Normal 275-295 [facility] [facility] Comment on above: Performed By: #### O SMO ####[facility] Ouihsscmqa[address] [place], [place] [address]Dr. Airam Tripathi CBC AUTO DIFFon 08-25-2022 BASO # 0.0 103/ul Normal 0.0-0.1 [facility] Comment on above: Performed By: #### C BC ####[facility] Cmebcqrjwf7542 [place] [address]Dr. Airam Deuce Basophils/100 WBC (Bld) 0.5 % Normal 0.2-2.0 [facility] Comment on above: Performed By: #### C BC ####[facility] Zbqwcjorsp5189 [place] [address]Dr. Airam Deuce EO # 0.4 103/ul Normal 0.0-0.7 [facility] Comment on above: Performed By: #### C BC ####[facility] Dslwoylfpk7[address] [place], [place] [address]Dr. Airam Deuce Eosinophils/100 WBC (Bld) 4.8 % Normal 0.9-7.0 [facility] Comment on above: Performed By: #### C BC ####[facility] Tlybglpooi33[address] [place], [place] [address]Dr. Airam Tripathi Erythrocyte distribution width (RBC) [Ratio] 14.2 % Normal 11.0-15.0 [facility] Comment on above: Performed By: #### C BC ####[facility] Aglfeakrsh15[address] [place], [place] [address]Dr. Airam Tripathi Hematocrit (Bld) [Volume fraction] 31.1 % Critically low 36.0-48.0 [facility] Comment on above: Performed By: #### C BC ####[facility] Yvicdibpcm9398[address] [place], [place] [address]Dr. Airam Tripathi Hemoglobin (Bld) [Mass/Vol] 9.7 g/dL Critically low 12.0-16.0 [facility] Comment on above: Performed By: #### C BC ####[facility] Hkrnnwmroo5[address] [place], [place] [address]Dr. Airam Tripathi IG # 0.05 10e3/ul Critically high 0.00-0.03 [facility] Comment on above: Performed By: #### C BC ####[facility] Zhdwdzuxaw200[address] [place], [place] [address]Dr. Airam Tripathi IG % 0.6 % Critically high 0.0-0.5 [facility] Comment on above: Performed By: #### C BC ####[facility] Xotjhnyjej9970[address] [place], [place] [address]Dr. Airam Tripathi LYMPH # 1.7 103/ul Normal 1.2-3.8 [facility] Comment on above: Performed By: #### C BC ####[facility] Yjsztewtyb8135[address] [place], [place] [address]Dr. Airam Tripathi Lymphocytes/100 WBC (Bld) 19.6 % Critically low 20.5-60.0 [facility] Comment on above: Performed By: #### C BC ####[facility] Mcrhlplwum3197[address] [place], [place] [address]Dr. Airam Tripathi MANUAL DIFF REQ NO Normal [facility] Comment on above: Performed By: #### C BC ####[facility] Byhmxbcnfx1202 [place] [id number]. Airam Deuce MCH (RBC) [Entitic mass] 28.2 pg Normal 26.7-34.0 [facility] Comment on above: Performed By: #### C BC ####[facility] Uxkfdaganl0430 [place] [id number]. Airam Deuce MCHC (RBC) [Mass/Vol] 31.2 g/dL Normal 29.9-35.2 [facility] Comment on above: Performed By: #### C BC ####[facility] Elywgduiau6068 [place] [address]Dr. Selenaneil Tripathi MCV (RBC) [Entitic vol] 90.4 fL Normal 81.0-99.0 [facility] Comment on above: Performed By: #### C BC ####[facility] Dniouczbku865[address] [place], [place] [address]Dr. Airam Tripathi MONO # 0.6 103/ul Normal 0.3-0.8 [facility] Comment on above: Performed By: #### C BC ####[facility] Osmuvelmlr3659[address] [place], [place] [address]Dr. Airam Tripathi Monocytes/100 WBC (Bld) 7.4 % Normal 1.7-12.0 [facility] Comment on above: Performed By: #### C BC ####[facility] Fuunwhmrmd489[address] [place], [place] [address]Dr. Airam Tripathi NEUT # 5.8 103/ul Normal 1.4-6.5 [facility] Comment on above: Performed By: #### C BC ####[facility] Grdqyrovig0024[address] [place], [place] [address]Dr. Airam Tripathi Neutrophils/100 WBC (Bld) 67.1 % Normal 43.0-75.0 [facility] Comment on above: Performed By: #### C BC ####[facility] Fdypbpqhow8976[address] [place], [place] [address]Dr. Airam Tripathi Platelet mean volume (Bld) [Entitic vol] 9.9 fL Normal 9.5-13.5 [facility] Comment on above: Performed By: #### C BC ####[facility] Ndaznqrikq2837 [place] [address]Dr. Airam Deuce PLT 320 103/ul Normal 150-450 [facility] Comment on above: Performed By: #### C BC ####[facility] Xajftrgasq4535 [place] [id number]. Selenaneil Tripathi RBC 3.44 106/ul Critically low 4.20-5.40 [facility] Comment on above: Performed By: #### C BC ####[facility] Iptnrzybgk4039 [place] [address]Dr. Selenaneil Deuce WBC 8.6 103/ul Normal 4.0-11.0 [facility] Comment on above: Performed By: #### C BC ####[facility] Xcrdqymyph8849 [place] [address]Dr. Airam Tripathi PROF 14(COMP METB)on 023 Albumin [Mass/Vol] 3.4 g/dL Normal 3.4-5.0 [facility] Comment on above: Performed By: #### C MP ####[facility] Vaasnweziv58[address] [place], [place] [address]Dr. Airam Tripathi Albumin/Globulin [Mass ratio] 1.1 {ratio} Normal [facility] Comment on above: Performed By: #### C MP ####[facility] Lfswpyxwvl6405 [place] [address]Dr. Airam Tripathi ALP [Catalytic activity/Vol] 170 U/L Critically high 46-116 [facility] Comment on above: Performed By: #### C MP ####[facility] Vfgdkhtedi3891 [place] [address]Dr. Airam Tripathi ALT [Catalytic activity/Vol] 22 U/L Normal 14-59 [facility] Comment on above: Performed By: #### C MP ####[facility] Vnbvuroqak9346 [place] [address]Dr. Airam Tripathi Anion gap [Moles/Vol] 14.4 mmol/L Normal [facility] Comment on above: Performed By: #### C MP ####[facility] Fcxabomure8967 [place] [id number]. Airam Tripathi AST [Catalytic activity/Vol] 25 U/L Normal 15-37 [facility] Comment on above: Performed By: #### C MP ####[facility] Rpvvhgxilk1971 [place] [id number]. Airam Tripathi Bilirubin [Mass/Vol] 0.3 mg/dL Normal 0.2-1.0 [facility] Comment on above: Performed By: #### C MP ####[facility] Ydwxhbvusb8709[address] [place], [place] [address]Dr. Airam Tripathi Calcium [Mass/Vol] 8.2 mg/dL Critically low 8.5-10.1 [facility] Comment on above: Performed By: #### C MP ####[facility] Oybymmrjeb3716[address] [place], [place] [address]Dr. Airam Tripathi Chloride [Moles/Vol] 98 mmol/L Normal 98-107 [facility] Comment on above: Performed By: #### C MP ####[facility] Wnzqyhjcat688[address] [place], [place] [address]Dr. Airam Tripathi CO2 [Moles/Vol] 27.8 mmol/L Normal 21.0-32.0 [facility] Comment on above: Performed By: #### C MP ####[facility] Ahhowgngla588522 [address] [place], [place] [address]Dr. Airam Tripathi Creatinine [Mass/Vol] 1.82 mg/dL Critically high 0.55-1.02 [facility] Comment on above: Performed By: #### C MP ####[facility] Xxnjatcfub2535[address] [place], [place] [address]Dr. Airam Tripathi EGFR-AF SLOVENIAN 34 mL/min/1.73m2 Critically low >=60 [facility] Comment on above: Performed By: #### C MP ####[facility] Dyvlducghe575[address] [place], [place] [address]Dr. Airam Tripathi EGFR-NON AF SLOVENIAN 28 mL/min/1.73m2 Critically low >=60 [facility] Comment on above: Performed By: #### C MP ####[facility] Usoxpgmhve3877 [place] [address]Dr. Airam Tripathi Globulin (S) [Mass/Vol] 3.2 g/dL Normal [facility] Comment on above: Performed By: #### C MP ####[facility] Jmleswvreq2856 [place] [address]Dr. Airam Tripathi Glucose [Mass/Vol] 78 mg/dL Normal 74-106 [facility] Comment on above: Performed By: #### C MP ####[facility] Vidummaywl3254[address] [place], [place] [address]Dr. Airam Tripathi Potassium [Moles/Vol] 5.2 mmol/L Critically high 3.5-5.1 [facility] Comment on above: Performed By: #### C MP ####[facility] Crbhpexscs6036[address] [place], [place] [address]Dr. Airam Tripathi Protein [Mass/Vol] 6.6 g/dL Normal 6.4-8.2 [facility] Comment on above: Performed By: #### C MP ####[facility] Kralfhbgjd5999[address] [place], [place] [address]Dr. Airam Tripathi Sodium [Moles/Vol] 135 mmol/L Critically low 136-145 [facility] Comment on above: Performed By: #### C MP ####[facility] Yjeuejgbqw0160[address] [place], [place] [address]Dr. Airam Tripathi Urea nitrogen [Mass/Vol] 51.0 mg/dL Critically high 7.0-18.0 [facility] Comment on above: Performed By: #### C MP ####[facility] Omwhemcoxv183[address] [place], [place] [address]Dr. Airam Tripathi Urea nitrogen/Creatinine [Mass ratio] 28.0 mg/mg Normal [facility] Comment on above: Performed By: #### C MP ####[facility] Cgjcsrwjnj6387[address] [place], [place] [address]Dr. Airam Tripathi OSMOLALITYon 08-18-2022 Osmolality [Osmolality] 280 mosm/kg Normal 275-295 [facility] Comment on above: Performed By: #### O SMO ####[facility] Korgbqjniq1127 [place] [id number]. Airam Deuce CBC AUTO DIFFon 08-16-2022 BASO # 0.0 103/ul Normal 0.0-0.1 [facility] Comment on above: Performed By: #### C BC ####[facility] Ssxvfxlzds2521 [place] [address]Dr. Airam Tripathi Basophils/100 WBC (Bld) 0.2 % Normal 0.2-2.0 [facility] Comment on above: Performed By: #### C BC ####[facility] Giryeaubbh9310[address] [place], [place] [address]Dr. Airam Tripathi EO # 0.2 103/ul Normal 0.0-0.7 [facility] Comment on above: Performed By: #### C BC ####[facility] Gszxsrdade0568[address] [place], [place] [address]Dr. Airam Tripathi Eosinophils/100 WBC (Bld) 2.4 % Normal 0.9-7.0 [facility] Comment on above: Performed By: #### C BC ####[facility] Zpafowewsm786[address] [place], [place] [address]Dr. Selenaneil Tripathi Erythrocyte distribution width (RBC) [Ratio] 14.2 % Normal 11.0-15.0 [facility] Comment on above: Performed By: #### C BC ####[facility] Uosepvqrwf0768[address] [place], [place] [address]Dr. Airam Tripathi Hematocrit (Bld) [Volume fraction] 30.1 % Critically low 36.0-48.0 [facility] Comment on above: Performed By: #### C BC ####[facility] Pcdtsqnted7748[address] [place], [place] [address]Dr. Airam Tripathi Hemoglobin (Bld) [Mass/Vol] 9.2 g/dL Critically low 12.0-16.0 [facility] Comment on above: Performed By: #### C BC ####[facility] Tztyyjrsjf1313[address] [place], [place] [address]Dr. Airam Tripathi IG # 0.04 10e3/ul Critically high 0.00-0.03 [facility] Comment on above: Performed By: #### C BC ####[facility] Agzioytxjp3211 [place] [address]DrKianna Airam Tripathi IG % 0.4 % Normal 0.0-0.5 [facility] Comment on above: Performed By: #### C BC ####[facility] Rpavfjvhdl8888 [place] [address]DrKianna Airam Deuce LYMPH # 0.9 103/ul Critically low 1.2-3.8 [facility] Comment on above: Performed By: #### C BC ####[facility] Mghjdgggcm0860 [place] [address]DrKianna Airam Deuce Lymphocytes/100 WBC (Bld) 9.3 % Critically low 20.5-60.0 [facility] Comment on above: Performed By: #### C BC ####[facility] Rfmfpbqsnb069[address] [place], [place] [address]DrKianna Selenaneil Tripathi MANUAL DIFF REQ NO Normal [facility] Comment on above: Performed By: #### C BC ####[facility] Iadjhwsrmo5100 [place] [address]DrKianna Airam Deuce MCH (RBC) [Entitic mass] 27.7 pg Normal 26.7-34.0 [facility] Comment on above: Performed By: #### C BC ####[facility] Xkjyslmzvi069[address] [place], [place] [address]DrKianna Airam Deuce MCHC (RBC) [Mass/Vol] 30.6 g/dL Normal 29.9-35.2 [facility] Comment on above: Performed By: #### C BC ####[facility] Tisbydgzem[address] [place], [place] [address]DrKianna Airam Deuce MCV (RBC) [Entitic vol] 90.7 fL Normal 81.0-99.0 [facility] Comment on above: Performed By: #### C BC ####[facility] Jsntoacmjt4433 [place] [address]DrKianna Selenaneil Tripathi MONO # 0.5 103/ul Normal 0.3-0.8 [facility] Comment on above: Performed By: #### C BC ####[facility] Zgxunrtsbc1907 [place] [id number]. Airam Tripathi Monocytes/100 WBC (Bld) 5.3 % Normal 1.7-12.0 [facility] Comment on above: Performed By: #### C BC ####[facility] Zvahxnzbsr9040 [place] [id number]. Airam Tripathi NEUT # 7.7 103/ul Critically high 1.4-6.5 [facility] Comment on above: Performed By: #### C BC ####[facility] Eigavaiicj1152 [place] [address]Dr. Airam Tripathi Neutrophils/100 WBC (Bld) 82.4 % Critically high 43.0-75.0 [facility] Comment on above: Performed By: #### C BC ####[facility] Vzrkjbuhrd8972 [place] [address]Dr. Airam Tripathi Platelet mean volume (Bld) [Entitic vol] 9.8 fL Normal 9.5-13.5 [facility] Comment on above: Performed By: #### C BC ####[facility] Floxdwqyio4091 [place] [address]Dr. Airam Tripathi PLT 285 103/ul Normal 150-450 [facility] Comment on above: Performed By: #### C BC ####[facility] Axrgpiqbpx6763 [place] [address]Dr. Airam Tripathi RBC 3.32 106/ul Critically low 4.20-5.40 [facility] Comment on above: Performed By: #### C BC ####[facility] Mqzcuohrvc6009 [place] [id number]. Airam Tripathi WBC 9.4 103/ul Normal 4.0-11.0 [facility] Comment on above: Performed By: #### C BC ####[facility] Duuwiaofaz5774 [place] [phone]. Airam Tripathi MRI WRIST RT WO CONon 2022 MRI WRIST RT WO CON Normal [facility] PROF 14(COMP METB)on 023 Albumin [Mass/Vol] 3.1 g/dL Critically low 3.4-5.0 [facility] Comment on above: Performed By: #### C MP ####[facility] Jrummbcras7070[address] [place], [place] [address]Dr. Airam Tripathi Albumin/Globulin [Mass ratio] 0.9 {ratio} Normal [facility] Comment on above: Performed By: #### C MP ####[facility] Nnsfoxqwtt5640[address] [place], [place] [address]Dr. Airam Tripathi ALP [Catalytic activity/Vol] 162 U/L Critically high 46-116 [facility] Comment on above: Performed By: #### C MP ####[facility] Iydzooarez37112[address] [place], [place] [address]Dr. Airam Tripathi ALT [Catalytic activity/Vol] 19 U/L Normal 14-59 [facility] Comment on above: Performed By: #### C MP ####[facility] Iqmdcubezq3039[address] [place], [place] [address]Dr. Airam Tripathi Anion gap [Moles/Vol] 13.0 mmol/L Normal Th [facility] Comment on above: Performed By: #### C MP ####[facility] Udsrhoszde785[address] [place], [place] [address]Dr. Airam Tripathi AST [Catalytic activity/Vol] 21 U/L Normal 15-37 [facility] Comment on above: Performed By: #### C MP ####[facility] Ccntlefctz6724[address] [place], [place] [address]Dr. Airam Tripathi Bilirubin [Mass/Vol] 0.3 mg/dL Normal 0.2-1.0 [facility] Comment on above: Performed By: #### C MP ####[facility] Iwobgbsqhi967[address] [place], [place] [address]Dr. Airam Tripathi Calcium [Mass/Vol] 8.4 mg/dL Critically low 8.5-10.1 [facility] Comment on above: Performed By: #### C MP ####[facility] Bdvrvtyzhh3590[address] [place], [place] [address]Dr. Airam Tripathi Chloride [Moles/Vol] 103 mmol/L Normal 98-107 [facility] Comment on above: Performed By: #### C MP ####[facility] Jzssqisriq3746 [place] [address]Dr. Airam Tripathi CO2 [Moles/Vol] 23.3 mmol/L Normal 21.0-32.0 [facility] Comment on above: Performed By: #### C MP ####[facility] Uscamcawws4562 [place] [address]Dr. Airam Deuce Creatinine [Mass/Vol] 1.02 mg/dL Normal 0.55-1.02 [facility] Comment on above: Performed By: #### C MP ####[facility] Yomepnsqae617[address] [place], [place] [address]Dr. Airam Deuce EGFR-AF SLOVENIAN >60 Normal >=60 [facility] Comment on above: Performed By: #### C MP ####[facility] Auvnroeaaz037[address] [place], [place] [address]Dr. Airam Deuce EGFR-NON AF SLOVENIAN 55 mL/min/1.73m2 Critically low >=60 [facility] Comment on above: Performed By: #### C MP ####[facility] Snpobntgpv9629[address] [place], [place] [address]Dr. Airam Deuce Globulin (S) [Mass/Vol] 3.4 g/dL Normal [facility] Comment on above: Performed By: #### C MP ####[facility] Ksxxnkjzuk6557[address] [place], [place] [address]Dr. Airam Deuce Glucose [Mass/Vol] 88 mg/dL Normal 74-106 [facility] Comment on above: Performed By: #### C MP ####[facility] Yittrvqgsx4769[address] [place], [place] [address]Dr. Airam Deuce Potassium [Moles/Vol] 4.3 mmol/L Normal 3.5-5.1 [facility] Comment on above: Performed By: #### C MP ####[facility] Lemfzuyomi7966[address] [place], [place] [address]Dr. Selenaneil Tripathi Protein [Mass/Vol] 6.5 g/dL Normal 6.4-8.2 [facility] Comment on above: Performed By: #### C MP ####[facility] Gpzciktdbg2760 [place] [address]Dr. Airam Tripathi Sodium [Moles/Vol] 135 mmol/L Critically low 136-145 [facility] Comment on above: Performed By: #### C MP ####[facility] Edmirgmbdn3598 [place] [address]Dr. Airam Tripathi Urea nitrogen [Mass/Vol] 27.0 mg/dL Critically high 7.0-18.0 [facility] Comment on above: Performed By: #### C MP ####[facility] Szrvvsesan5932[address] [place], [place] [address]Dr. Airam Tripathi Urea nitrogen/Creatinine [Mass ratio] 26.5 mg/mg Normal [facility] Comment on above: Performed By: #### C MP ####[facility] Kjpwuxavbf4858[address] [place], [place] [address]Dr. Airam Tripathi CT HEAD WO CONon 08-06-2022 CT HEAD WO CON Normal [facility] CT LSPINE WO CONon 3 CT LSPINE WO CON Normal [facility] XR HAND RT MIN 3Von 08-06-19 23 XR HAND RT MIN 3V Normal [facility] XR KNEE LT 4V or >on 023 XR KNEE LT 4V or > Normal [facility] XR WRIST RT MIN 3 Von 2022 XR WRIST RT MIN 3 V Normal [facility] OSMOLALITYon 08-05-2022 Osmolality [Osmolality] 282 mosm/kg Normal 275-295 [facility] Comment on above: Performed By: #### O SMO ####[facility] Qvfzvdykic3588[address] [place], [place] [address]Dr. Airam Tripathi CBC AUTO DIFFon 08-03-2022 BASO # 0.0 103/ul Normal 0.0-0.1 [facility] Comment on above: Performed By: #### C BC ####[facility] Iuulhemdrn6140[address] [place], [place] [address]Dr. Airam Tripathi Basophils/100 WBC (Bld) 0.5 % Normal 0.2-2.0 [facility] Comment on above: Performed By: #### C BC ####[facility] Roxohgtchy6520[address] [place], [place] [address]DrKianna Tripathi EO # 0.5 103/ul Normal 0.0-0.7 [facility] Comment on above: Performed By: #### C BC ####[facility] Jbeuoprzhz563[address] [place], [place] [address]Dr. Airam Tripathi Eosinophils/100 WBC (Bld) 5.2 % Normal 0.9-7.0 [facility] Comment on above: Performed By: #### C BC ####[facility] Hoalheyuch4440[address] [place], [place] [address]Dr. Airam Tripathi Erythrocyte distribution width (RBC) [Ratio] 14.3 % Normal 11.0-15.0 [facility] Comment on above: Performed By: #### C BC ####[facility] Rytrrinkhv3639[address] [place], [place] [address]Dr. Airam Tripathi Hematocrit (Bld) [Volume fraction] 31.4 % Critically low 36.0-48.0 [facility] Comment on above: Performed By: #### C BC ####[facility] Zbrklcopdr0613[address] [place], [place] [address]Dr. Airam Tripathi Hemoglobin (Bld) [Mass/Vol] 9.5 g/dL Critically low 12.0-16.0 [facility] Comment on above: Performed By: #### C BC ####[facility] Kbbjurkmdq8896[address] [place], [place] [address]Dr. Airam Tripathi IG # 0.05 10e3/ul Critically high 0.00-0.03 [facility] Comment on above: Performed By: #### C BC ####[facility] Qyivbkxpqg7316[address] [place], [place] [address]DrKianna Tripathi IG % 0.6 % Critically high 0.0-0.5 [facility] Comment on above: Performed By: #### C BC ####[facility] Vgtybgdpgg9338[address] [place], [place] [address]DrKianna Tripathi LYMPH # 1.5 103/ul Normal 1.2-3.8 [facility] Comment on above: Performed By: #### C BC ####[facility] Pqlqandccr4889 [place] [address]DrKianna Tripathi Lymphocytes/100 WBC (Bld) 17.6 % Critically low 20.5-60.0 [facility] Comment on above: Performed By: #### C BC ####[facility] Jbjfvyrmcd7988[address] [place], [place] [address]DrKianna Tripathi MANUAL DIFF REQ NO Normal [facility] Comment on above: Performed By: #### C BC ####[facility] Kzhyiskzox3863 [place] [address]DrKianna Tripathi MCH (RBC) [Entitic mass] 29.0 pg Normal 26.7-34.0 [facility] Comment on above: Performed By: #### C BC ####[facility] Lnfukuzres0639[address] [place], [place] [address]DrKianna Tripathi MCHC (RBC) [Mass/Vol] 30.3 g/dL Normal 29.9-35.2 [facility] Comment on above: Performed By: #### C BC ####[facility] Tseyneetul1097[address] [place], [place] [address]DrKianna Tripathi MCV (RBC) [Entitic vol] 95.7 fL Normal 81.0-99.0 [facility] Comment on above: Performed By: #### C BC ####[facility] Tudpsmqfbs48[address] [place], [place] [address]DrKianna Tripathi MONO # 0.7 103/ul Normal 0.3-0.8 [facility] Comment on above: Performed By: #### C BC ####[facility] Hqfpzonebg6689[address] [place], [place] [address]DrKianna Tripathi Monocytes/100 WBC (Bld) 8.5 % Normal 1.7-12.0 [facility] Comment on above: Performed By: #### C BC ####[facility] Ubtsjmxtba747[address] [place], [place] [address]DrKianna Tripathi NEUT # 5.8 103/ul Normal 1.4-6.5 [facility] Comment on above: Performed By: #### C BC ####[facility] Ksymfxkaxi4860 [place] [id number] Tripathi Neutrophils/100 WBC (Bld) 67.6 % Normal 43.0-75.0 [facility] Comment on above: Performed By: #### C BC ####[facility] Rpxsuwgaet5706 [place] [address]DrKianna Tripathi Platelet mean volume (Bld) [Entitic vol] 9.5 fL Normal 9.5-13.5 [facility] Comment on above: Performed By: #### C BC ####[facility] Yihoybcqum876[address] [place], [place] [address]DrKianna Tripathi PLT 292 103/ul Normal 150-450 [facility] Comment on above: Performed By: #### C BC ####[facility] Olfcdcepkq779[address] [place], [place] [address]DrKianna Tripathi RBC 3.28 106/ul Critically low 4.20-5.40 [facility] Comment on above: Performed By: #### C BC ####[facility] Kshebgofgx260[address] [place], [place] [address]DrKianna Tripathi WBC 8.6 103/ul Normal 4.0-11.0 [facility] Comment on above: Performed By: #### C BC ####[facility] Krxywmkrap5[address] [place], [place] [address]DrKianna Tripathi PROF 14(COMP METB)on 023 Albumin [Mass/Vol] 3.0 g/dL Critically low 3.4-5.0 [facility] Comment on above: Performed By: #### C MP ####[facility] Obvqniwxkv06[address] [place], [place] [address]DrKianna Tripathi Albumin/Globulin [Mass ratio] 0.9 {ratio} Normal [facility] Comment on above: Performed By: #### C MP ####[facility] Yvnfcrratg[address] [place], [place] [address]DrKianna Tripathi ALP [Catalytic activity/Vol] 184 U/L Critically high 46-116 [facility] Comment on above: Performed By: #### C MP ####[facility] Iyhcqtqsxh7738 [place] [address]Dr. Airam Tripathi ALT [Catalytic activity/Vol] 18 U/L Normal 14-59 [facility] Comment on above: Performed By: #### C MP ####[facility] Wszynplfwj1314 [place] [address]Dr. Airam Tripathi Anion gap [Moles/Vol] 11.2 mmol/L Normal [facility] Comment on above: Performed By: #### C MP ####[facility] Xebuwpzrrd27[address] [place], [place] [address]Dr. Airam Tripathi AST [Catalytic activity/Vol] 19 U/L Normal 15-37 [facility] Comment on above: Performed By: #### C MP ####[facility] Oqmctpmlge55[address] [place], [place] [address]Dr. Airam Deuce Bilirubin [Mass/Vol] 0.3 mg/dL Normal 0.2-1.0 [facility] Comment on above: Performed By: #### C MP ####[facility] Jufmzmedio27[address] [place], [place] [address]Dr. Airam Deuce Calcium [Mass/Vol] 8.8 mg/dL Normal 8.5-10.1 [facility] Comment on above: Performed By: #### C MP ####[facility] Zhilhhxyox435[address] [place], [place] [address]Dr. Airam Deuce Chloride [Moles/Vol] 101 mmol/L Normal 98-107 [facility] Comment on above: Performed By: #### C MP ####[facility] Ekbdisfezf0150[address] [place], [place] [address]Dr. Airam Deuce CO2 [Moles/Vol] 25.4 mmol/L Normal 21.0-32.0 [facility] Comment on above: Performed By: #### C MP ####[facility] Tgaeysqeqc7810[address] [place], [place] [address]Dr. Airam Deuce Creatinine [Mass/Vol] 1.05 mg/dL Critically high 0.55-1.02 [facility] Comment on above: Performed By: #### C MP ####[facility] Fcetyatgtx7699 [place] [address]Dr. Airam Deuce EGFR-AF SLOVENIAN >60 Normal >=60 [facility] Comment on above: Performed By: #### C MP ####[facility] Krfhotdode2533 [place] [id number]. Airam Tripathi EGFR-NON AF SLOVENIAN 53 mL/min/1.73m2 Critically low >=60 [facility] Comment on above: Performed By: #### C MP ####[facility] Mgrhliprba7626 [place] [address]Dr. Airam Tripathi Globulin (S) [Mass/Vol] 3.4 g/dL Normal [facility] Comment on above: Performed By: #### C MP ####[facility] Wbstywimeb3930[address] [place], [place] [address]Dr. Airam Tripathi Glucose [Mass/Vol] 78 mg/dL Normal 74-106 [facility] Comment on above: Performed By: #### C MP ####[facility] Vlvwxepmqm9806[address] [place], [place] [address]Dr. Airam Tripathi Potassium [Moles/Vol] 4.6 mmol/L Normal 3.5-5.1 [facility] Comment on above: Performed By: #### C MP ####[facility] Qbxnkmtqjw0120[address] [place], [place] [address]Dr. Airam Tripathi Protein [Mass/Vol] 6.4 g/dL Normal 6.4-8.2 [facility] Comment on above: Performed By: #### C MP ####[facility] Ikdrcinkkc4157 [place] [address]Dr. Airam Tripathi Sodium [Moles/Vol] 133 mmol/L Critically low 136-145 [facility] Comment on above: Performed By: #### C MP ####[facility] Iaxwpkenax5149 [place] [address]Dr. Airam Tripathi Urea nitrogen [Mass/Vol] 26.0 mg/dL Critically high 7.0-18.0 [facility] Comment on above: Performed By: #### C MP ####[facility] Nvwowuhjqa450[address] [place], [place] [address]Dr. Airam Tripathi Urea nitrogen/Creatinine [Mass ratio] 24.8 mg/mg Normal [facility] Comment on above: Performed By: #### C MP ####[facility] Xapceredml9908[address] [place], [place] [address]Dr. Airam Tripathi OSMOLALITYon 07-29-2022 Osmolality [Osmolality] 287 mosm/kg Normal 275-295 [facility] Comment on above: Performed By: #### O SMO ####[facility] Bacyouardg6078[address] [place], [place] [address]Dr. Airam Tripathi CBC AUTO DIFFon 07-27-2022 BASO # 0.0 103/ul Normal 0.0-0.1 [facility] Comment on above: Performed By: #### C BC ####[facility] Dhntpaizir227[address] [place], [place] [address]DrKianna Tripathi Basophils/100 WBC (Bld) 0.4 % Normal 0.2-2.0 [facility] Comment on above: Performed By: #### C BC ####[facility] Qnpdrlgfqw9799[address] [place], [place] [address]DrKianna Tripathi EO # 0.2 103/ul Normal 0.0-0.7 [facility] Comment on above: Performed By: #### C BC ####[facility] Dlkziqxgnt7235[address] [place], [place] [address]Dr. Airam Tripathi Eosinophils/100 WBC (Bld) 2.6 % Normal 0.9-7.0 [facility] Comment on above: Performed By: #### C BC ####[facility] Mqrtdrrjad69[address] [place], [place] [address]Dr. Airam Tripathi Erythrocyte distribution width (RBC) [Ratio] 14.2 % Normal 11.0-15.0 [facility] Comment on above: Performed By: #### C BC ####[facility] Shsoucjlkt1035[address] [place], [place] [address]Dr. Airam Tripathi Hematocrit (Bld) [Volume fraction] 31.3 % Critically low 36.0-48.0 [facility] Comment on above: Performed By: #### C BC ####[facility] Nbrofcyjta8754 [place] [address]DrKianna Tripahti Hemoglobin (Bld) [Mass/Vol] 9.3 g/dL Critically low 12.0-16.0 [facility] Comment on above: Performed By: #### C BC ####[facility] Cdvfofygml0659[address] [place], [place] [address]DrKianna Tripathi IG # 0.05 10e3/ul Critically high 0.00-0.03 [facility] Comment on above: Performed By: #### C BC ####[facility] Tbwkrejmxb2368[address] [place], [place] [address]DrKianna Tripathi IG % 0.7 % Critically high 0.0-0.5 [facility] Comment on above: Performed By: #### C BC ####[facility] Pmkebcstjc988[address] [place], [place] [address]DrKianna Tripathi LYMPH # 1.0 103/ul Critically low 1.2-3.8 [facility] Comment on above: Performed By: #### C BC ####[facility] Yuwkjjisaf6358[address] [place], [place] [address]DrKianna Tripathi Lymphocytes/100 WBC (Bld) 13.4 % Critically low 20.5-60.0 [facility] Comment on above: Performed By: #### C BC ####[facility] Ywqwbvzzdp77[address] [place], [place] [address]DrKianna Tripathi MANUAL DIFF REQ NO Normal [facility] Comment on above: Performed By: #### C BC ####[facility] Cgspmymotm014[address] [place], [place] [address]DrKianna Tripathi MCH (RBC) [Entitic mass] 28.8 pg Normal 26.7-34.0 [facility] Comment on above: Performed By: #### C BC ####[facility] Hjoyzegoks1310[address] [place], [place] [address]DrKianna Tripathi MCHC (RBC) [Mass/Vol] 29.7 g/dL Critically low 29.9-35.2 [facility] Comment on above: Performed By: #### C BC ####[facility] Abqqpnnaco2233 [place] [address]DrKianna Tripathi MCV (RBC) [Entitic vol] 96.9 fL Normal 81.0-99.0 [facility] Comment on above: Performed By: #### C BC ####[facility] Vpmrdbepmh403[address] [place], [place] [address]DrKianna Tripathi MONO # 0.5 103/ul Normal 0.3-0.8 [facility] Comment on above: Performed By: #### C BC ####[facility] Rfpwjzpopj5197[address] [place], [place] [address]DrKianna Tripathi Monocytes/100 WBC (Bld) 6.3 % Normal 1.7-12.0 [facility] Comment on above: Performed By: #### C BC ####[facility] Gpgqcbgpfs6130[address] [place], [place] [address]DrKianna Tripathi NEUT # 5.8 103/ul Normal 1.4-6.5 [facility] Comment on above: Performed By: #### C BC ####[facility] Jugjmzaljc6169[address] [place], [place] [address]DrKianna Tripathi Neutrophils/100 WBC (Bld) 76.6 % Critically high 43.0-75.0 [facility] Comment on above: Performed By: #### C BC ####[facility] Cnruzpmgmt9866[address] [place], [place] [address]DrKianna Tripathi Platelet mean volume (Bld) [Entitic vol] 10.3 fL Normal 9.5-13.5 [facility] Comment on above: Performed By: #### C BC ####[facility] Sqgybygjkl7406[address] [place], [place] [address]DrKianna Tripathi PLT 265 103/ul Normal 150-450 [facility] Comment on above: Performed By: #### C BC ####[facility] Gveqndueia8776[address] [place], [place] [address]DrKianna Tripathi RBC 3.23 106/ul Critically low 4.20-5.40 [facility] Comment on above: Performed By: #### C BC ####[facility] Rawircdvrz2079[address] [place], [place] [address]Dr. Airam Tripathi WBC 7.6 103/ul Normal 4.0-11.0 [facility] Comment on above: Performed By: #### C BC ####[facility] Axqjggitez8920[address] [place], [place] [address]Dr. Airam Tripathi PROF 14(COMP METB)on 023 Albumin [Mass/Vol] 2.9 g/dL Critically low 3.4-5.0 [facility] Comment on above: Performed By: #### C MP ####[facility] Wiysaftvew4605[address] [place], [place] [address]Dr. Airam Tripathi Albumin/Globulin [Mass ratio] 0.8 {ratio} Normal [facility] Comment on above: Performed By: #### C MP ####[facility] Vcukjypnpl4490[address] [place], [place] [address]Dr. Airam Tripathi ALP [Catalytic activity/Vol] 175 U/L Critically high 46-116 [facility] Comment on above: Performed By: #### C MP ####[facility] Oxywhjlpks1414[address] [place], [place] [address]Dr. Airam Tripathi ALT [Catalytic activity/Vol] 24 U/L Normal 14-59 [facility] Comment on above: Performed By: #### C MP ####[facility] Unnlhpoqyu8364[address] [place], [place] [address]Dr. Airam Tripathi Anion gap [Moles/Vol] 14.3 mmol/L Normal Th [facility] Comment on above: Performed By: #### C MP ####[facility] Tydqxudckm173[address] [place], [place] [address]Dr. Airam Tripathi AST [Catalytic activity/Vol] 25 U/L Normal 15-37 [facility] Comment on above: Performed By: #### C MP ####[facility] Mdyjzcwgkc764[address] [place], [place] [address]Dr. Airam Tripathi Bilirubin [Mass/Vol] 0.2 mg/dL Normal 0.2-1.0 [facility] Comment on above: Performed By: #### C MP ####[facility] Shesrawsle2533 [place] [address]Dr. Airam Tripathi Calcium [Mass/Vol] 8.6 mg/dL Normal 8.5-10.1 [facility] Comment on above: Performed By: #### C MP ####[facility] Ltyjeilagt0589[address] [place], [place] [address]Dr. Airam Tripathi Chloride [Moles/Vol] 102 mmol/L Normal 98-107 [facility] Comment on above: Performed By: #### C MP ####[facility] Wkhigfuahz540[address] [place], [place] [address]Dr. Airam Tripathi CO2 [Moles/Vol] 23.7 mmol/L Normal 21.0-32.0 [facility] Comment on above: Performed By: #### C MP ####[facility] Kxcyeszxkb159[address] [place], [place] [address]Dr. Airam Tripathi Creatinine [Mass/Vol] 1.29 mg/dL Critically high 0.55-1.02 [facility] Comment on above: Performed By: #### C MP ####[facility] Aqdjxxeswj985[address] [place], [place] [address]Dr. Airam Tripathi EGFR-AF SLOVENIAN 51 mL/min/1.73m2 Critically low >=60 [facility] Comment on above: Performed By: #### C MP ####[facility] Jgyzexjnvs4775[address] [place], [place] [address]Dr. Airam Tripathi EGFR-NON AF SLOVENIAN 42 mL/min/1.73m2 Critically low >=60 [facility] Comment on above: Performed By: #### C MP ####[facility] Xjrzfspzct635[address] [place], [place] [address]Dr. Airam Tripathi Globulin (S) [Mass/Vol] 3.6 g/dL Normal [facility] Comment on above: Performed By: #### C MP ####[facility] Cehirjgqih6858[address] [place], [place] [address]Dr. Airam Tripathi Glucose [Mass/Vol] 84 mg/dL Normal 74-106 [facility] Comment on above: Performed By: #### C MP ####[facility] Kaytlbpkrc4221 [place] [address]Dr. Airam Tripathi Potassium [Moles/Vol] 5.0 mmol/L Normal 3.5-5.1 [facility] Comment on above: Performed By: #### C MP ####[facility] Stbbbxpphs837[address] [place], [place] [address]Dr. Airam Tripathi Protein [Mass/Vol] 6.5 g/dL Normal 6.4-8.2 [facility] Comment on above: Performed By: #### C MP ####[facility] Ntytccwgax3209[address] [place], [place] [address]Dr. Airam Tripathi Sodium [Moles/Vol] 135 mmol/L Critically low 136-145 [facility] Comment on above: Performed By: #### C MP ####[facility] Ujryadicmr7310[address] [place], [place] [address]Dr. Airam Tripathi Urea nitrogen [Mass/Vol] 28.0 mg/dL Critically high 7.0-18.0 [facility] Comment on above: Performed By: #### C MP ####[facility] Lxcgmkcynu3905[address] [place], [place] [address]Dr. Airam Tripathi Urea nitrogen/Creatinine [Mass ratio] 21.7 mg/mg Normal [facility] Comment on above: Performed By: #### C MP ####[facility] Baxxftyzee8930[address] [place], [place] [address]Dr. Airam Tripathi XR LSPINE MIN 4 VIEWSon 020 XR LSPINE MIN 4 VIEWS Normal [facility] OSMOLALITYon 07-24-2022 Osmolality [Osmolality] 279 mosm/kg Normal 275-295 [facility] Comment on above: Performed By: #### O SMO ####[facility] Wwhxldmows8369[address] [place], [place] [address]Dr. Airam Tripathi CBC AUTO DIFFon 07-21-2022 BASO # 0.0 103/ul Normal 0.0-0.1 [facility] Comment on above: Performed By: #### C BC ####[facility] Iziufevjtj4048 [place] [id number]. Airam Tripathi Basophils/100 WBC (Bld) 0.4 % Normal 0.2-2.0 [facility] Comment on above: Performed By: #### C BC ####[facility] Mguidmffiy[address] [place], [place] [address]Dr. Airam Tripathi EO # 0.2 103/ul Normal 0.0-0.7 [facility] Comment on above: Performed By: #### C BC ####[facility] Rfoqcmluko2778[address] [place], [place] [address]Dr. Airam Tripathi Eosinophils/100 WBC (Bld) 2.3 % Normal 0.9-7.0 [facility] Comment on above: Performed By: #### C BC ####[facility] Urorebbumj1669[address] [place], [place] [address]Dr. Airam Tripathi Erythrocyte distribution width (RBC) [Ratio] 13.6 % Normal 11.0-15.0 [facility] Comment on above: Performed By: #### C BC ####[facility] Nxamxzxaqx4565[address] [place], [place] [address]Dr. Airam Tripathi Hematocrit (Bld) [Volume fraction] 32.6 % Critically low 36.0-48.0 [facility] Comment on above: Performed By: #### C BC ####[facility] Rqjysflzjl8420[address] [place], [place] [address]Dr. Airam Tripathi Hemoglobin (Bld) [Mass/Vol] 9.5 g/dL Critically low 12.0-16.0 [facility] Comment on above: Performed By: #### C BC ####[facility] Pmznkijzae5507[address] [place], [place] [address]Dr. Airam Tripathi IG # 0.03 10e3/ul Normal 0.00-0.03 [facility] Comment on above: Performed By: #### C BC ####[facility] Sudbididrq4494[address] [place], [place] [address]Dr. Airam Tripathi IG % 0.4 % Normal 0.0-0.5 [facility] Comment on above: Performed By: #### C BC ####[facility] Hyuusxysjq2160 [place] [id number]. Airam Deuce LYMPH # 1.4 103/ul Normal 1.2-3.8 [facility] Comment on above: Performed By: #### C BC ####[facility] Ykxdxmifdp9759 [place] [id number]. Airam Deuce Lymphocytes/100 WBC (Bld) 18.2 % Critically low 20.5-60.0 [facility] Comment on above: Performed By: #### C BC ####[facility] Numixnztcz0310 [place] [address]Dr. Selenaneil Tripathi MANUAL DIFF REQ NO Normal [facility] Comment on above: Performed By: #### C BC ####[facility] Nmpnirtjsv0193 [place] [address]Dr. Selenaneil Tripathi MCH (RBC) [Entitic mass] 29.5 pg Normal 26.7-34.0 [facility] Comment on above: Performed By: #### C BC ####[facility] Woigfgrhjc3192 [place] [address]Dr. Airam Deuce MCHC (RBC) [Mass/Vol] 29.1 g/dL Critically low 29.9-35.2 [facility] Comment on above: Performed By: #### C BC ####[facility] Yzsthajqgh7287 [place] [id number]. Selenaneil Tripathi MCV (RBC) [Entitic vol] 101.2 fL Critically high 81.0-99.0 [facility] Comment on above: Performed By: #### C BC ####[facility] Velnxteyvq2332 [place] [address]Dr. Airam Deuce MONO # 0.6 103/ul Normal 0.3-0.8 [facility] Comment on above: Performed By: #### C BC ####[facility] Vfuruezket0506 [place] [id number]. Selenaneil Tripathi Monocytes/100 WBC (Bld) 7.9 % Normal 1.7-12.0 [facility] Comment on above: Performed By: #### C BC ####[facility] Fmspylgxai8774 [place] [id number]. Airam Tripathi NEUT # 5.5 103/ul Normal 1.4-6.5 [facility] Comment on above: Performed By: #### C BC ####[facility] Upjenvqgmd5669 [place] [id number]. Airam Tripathi Neutrophils/100 WBC (Bld) 70.8 % Normal 43.0-75.0 [facility] Comment on above: Performed By: #### C BC ####[facility] Ijbelyelxr4273 [place] [address]Dr. Airam Tripathi Platelet mean volume (Bld) [Entitic vol] 9.6 fL Normal 9.5-13.5 [facility] Comment on above: Performed By: #### C BC ####[facility] Aovqcnxsgs7295[address] [place], [place] [address]Dr. Airam Tripathi PLT 265 103/ul Normal 150-450 [facility] Comment on above: Performed By: #### C BC ####[facility] Bklhpbntpu2858 [place] [address]Dr. Airam Tripathi RBC 3.22 106/ul Critically low 4.20-5.40 [facility] Comment on above: Performed By: #### C BC ####[facility] Fvfdoikkqx8334 [place] [address]Dr. Airam Tripathi WBC 7.8 103/ul Normal 4.0-11.0 [facility] Comment on above: Performed By: #### C BC ####[facility] Kyhfksftrx4439[address] [place], [place] [address]DrKianna Tripathi PROF 14(COMP METB)on 023 Albumin [Mass/Vol] 2.9 g/dL Critically low 3.4-5.0 [facility] Comment on above: Performed By: #### C MP ####[facility] Cvwpgqnabk6505 [place] [address]Dr. Airam Tripathi Albumin/Globulin [Mass ratio] 0.9 {ratio} Normal [facility] Comment on above: Performed By: #### C MP ####[facility] Snmvurfqha9081 [place] [address]Dr. Airam Tripathi ALP [Catalytic activity/Vol] 176 U/L Critically high 46-116 [facility] Comment on above: Performed By: #### C MP ####[facility] Stnxmvcgha4071 [place] [address]Dr. Airam Tripathi ALT [Catalytic activity/Vol] 19 U/L Normal 14-59 [facility] Comment on above: Performed By: #### C MP ####[facility] Fqftmdzbdb8412 [place] [address]Dr. Airam Tripathi Anion gap [Moles/Vol] 12.6 mmol/L Normal [facility] Comment on above: Performed By: #### C MP ####[facility] Hvkyggrqst1816[address] [place], [place] [address]Dr. Airam Tripathi AST [Catalytic activity/Vol] 25 U/L Normal 15-37 [facility] Comment on above: Performed By: #### C MP ####[facility] Mthrrfyjsn9756[address] [place], [place] [address]Dr. Airam Tripathi Bilirubin [Mass/Vol] 0.2 mg/dL Normal 0.2-1.0 [facility] Comment on above: Performed By: #### C MP ####[facility] Ialobaknip435[address] [place], [place] [address]Dr. Airam Tripathi Calcium [Mass/Vol] 8.5 mg/dL Normal 8.5-10.1 [facility] Comment on above: Performed By: #### C MP ####[facility] Ahwdavyofi638[address] [place], [place] [address]Dr. Airam Tripathi Chloride [Moles/Vol] 101 mmol/L Normal 98-107 [facility] Comment on above: Performed By: #### C MP ####[facility] Ibltclhbax8294[address] [place], [place] [address]Dr. Selenaneil Tripathi CO2 [Moles/Vol] 25.9 mmol/L Normal 21.0-32.0 [facility] Comment on above: Performed By: #### C MP ####[facility] Mvcjrqsydd7500 [place] [id number]. Airam Tripathi Creatinine [Mass/Vol] 1.11 mg/dL Critically high 0.55-1.02 [facility] Comment on above: Performed By: #### C MP ####[facility] Htkebtrvxf0320 [place] [id number]. Airam Tripathi EGFR-AF SLOVENIAN >60 Normal >=60 [facility] Comment on above: Performed By: #### C MP ####[facility] Tbrnncvnnn2909 [place] [id number]. Airam Tripathi EGFR-NON AF SLOVENIAN 50 mL/min/1.73m2 Critically low >=60 [facility] Comment on above: Performed By: #### C MP ####[facility] Airtdvkeyq1676[address] [place], [place] [address]Dr. Airam Tripathi Globulin (S) [Mass/Vol] 3.2 g/dL Normal [facility] Comment on above: Performed By: #### C MP ####[facility] Lclmbkjwva7727[address] [place], [place] [address]Dr. Airam Tripathi Glucose [Mass/Vol] 80 mg/dL Normal 74-106 [facility] Comment on above: Performed By: #### C MP ####[facility] Mejnjfrufv032[address] [place], [place] [address]Dr. Airam Tripathi Potassium [Moles/Vol] 3.5 mmol/L Normal 3.5-5.1 [facility] Comment on above: Performed By: #### C MP ####[facility] Kpukhbwhqd2948 [place] [address]Dr. Airam Tripathi Protein [Mass/Vol] 6.1 g/dL Critically low 6.4-8.2 [facility] Comment on above: Performed By: #### C MP ####[facility] Ngbabflqsg6049 [place] [address]Dr. Airam Tripathi Sodium [Moles/Vol] 136 mmol/L Normal 136-145 [facility] Comment on above: Performed By: #### C MP ####[facility] Lrkgeepadm0660[address] [place], [place] [address]Dr. Airam Tripathi Urea nitrogen [Mass/Vol] 31.0 mg/dL Critically high 7.0-18.0 [facility] Comment on above: Performed By: #### C MP ####[facility] Mmipdqewbw3620[address] [place], [place] [address]Dr. Airam Tripathi Urea nitrogen/Creatinine [Mass ratio] 27.9 mg/mg Normal [facility] Comment on above: Performed By: #### C MP ####[facility] Ijclbuaala064[address] [place], [place] [address]Dr. Airam Tripathi OSMOLALITYon 07-19-2022 Osmolality [Osmolality] 285 mosm/kg Normal 275-295 [facility] Comment on above: Performed By: #### O SMO ####[facility] Znvqdknoky8746[address] [place], [place] [address]Dr. Airam Tripathi CBC AUTO DIFFon 07-15-2022 BASO # 0.0 103/ul Normal 0.0-0.1 [facility] Comment on above: Performed By: #### C BC ####[facility] Kklihyphka64[address] [place], [place] [address]Dr. Airam Tripathi Basophils/100 WBC (Bld) 0.2 % Normal 0.2-2.0 [facility] Comment on above: Performed By: #### C BC ####[facility] Mvzkwikzwl329[address] [place], [place] [address]Dr. Airam Tripathi EO # 0.1 103/ul Normal 0.0-0.7 [facility] Comment on above: Performed By: #### C BC ####[facility] Ildocdjzos024[address] [place], [place] [address]Dr. Airam Tripathi Eosinophils/100 WBC (Bld) 1.4 % Normal 0.9-7.0 [facility] Comment on above: Performed By: #### C BC ####[facility] Nzfggwhpdl[address] [place], [place] [address]Dr. Airam Tripathi Erythrocyte distribution width (RBC) [Ratio] 13.0 % Normal 11.0-15.0 [facility] Comment on above: Performed By: #### C BC ####[facility] Purjjfftex2477 [place] [address]Dr. Airam Tripathi Hematocrit (Bld) [Volume fraction] 29.3 % Critically low 36.0-48.0 [facility] Comment on above: Performed By: #### C BC ####[facility] Dformqjand0480 [place] [address]Dr. Airam Tripathi Hemoglobin (Bld) [Mass/Vol] 10.3 g/dL Critically low 12.0-16.0 [facility] Comment on above: Performed By: #### C BC ####[facility] Wwzqdvngzj35[address] [place], [place] [address]Dr. Airam Tripathi IG # 0.05 10e3/ul Critically high 0.00-0.03 [facility] Comment on above: Performed By: #### C BC ####[facility] Cyukzewydp[address] [place], [place] [address]Dr. Airam Tripathi IG % 0.6 % Critically high 0.0-0.5 [facility] Comment on above: Performed By: #### C BC ####[facility] Wrlsokimzs[address] [place], [place] [address]Dr. Airam Deuce LYMPH # 0.9 103/ul Critically low 1.2-3.8 [facility] Comment on above: Performed By: #### C BC ####[facility] Iywrhzodla9814 [place] [address]Dr. Selenaneil Tripathi Lymphocytes/100 WBC (Bld) 10.6 % Critically low 20.5-60.0 [facility] Comment on above: Performed By: #### C BC ####[facility] Eiuoujjhcj[address] [place], [place] [address]Dr. Selenaneil Tripathi MANUAL DIFF REQ NO Normal [facility] Comment on above: Performed By: #### C BC ####[facility] Zowbqtjgsj119[address] [place], [place] [address]Dr. Selenaneil Tripathi MCH (RBC) [Entitic mass] 29.3 pg Normal 26.7-34.0 [facility] Comment on above: Performed By: #### C BC ####[facility] Wgaagwmntk9961 [place] [id number]. Airam Tripathi MCHC (RBC) [Mass/Vol] 35.2 g/dL Normal 29.9-35.2 [facility] Comment on above: Performed By: #### C BC ####[facility] Jfejgmaawl9351 [place] [phone]. Airam Tripathi MCV (RBC) [Entitic vol] 83.5 fL Normal 81.0-99.0 [facility] Comment on above: Performed By: #### C BC ####[facility] Jzpqeiyjio7756[address] [place], [place] [address]Dr. Airam Tripathi MONO # 0.5 103/ul Normal 0.3-0.8 [facility] Comment on above: Performed By: #### C BC ####[facility] Wtosjvufrn[address] [place], [place] [address]Dr. Airam Tripathi Monocytes/100 WBC (Bld) 5.1 % Normal 1.7-12.0 [facility] Comment on above: Performed By: #### C BC ####[facility] Mimulihvwo4[address] [place], [place] [address]Dr. Airam Tripathi NEUT # 7.3 103/ul Critically high 1.4-6.5 [facility] Comment on above: Performed By: #### C BC ####[facility] Huezvwuhnh1225[address] [place], [place] [address]Dr. Airam Tripathi Neutrophils/100 WBC (Bld) 82.1 % Critically high 43.0-75.0 [facility] Comment on above: Performed By: #### C BC ####[facility] Wpmdbgsjak7287[address] [place], [place] [address]Dr. Airam Tripathi Platelet mean volume (Bld) [Entitic vol] 8.9 fL Critically low 9.5-13.5 [facility] Comment on above: Performed By: #### C BC ####[facility] Dyueopgwpx5308[address] [place], [place] [address]Dr. Airam Tripathi PLT 290 103/ul Normal 150-450 [facility] Comment on above: Performed By: #### C BC ####[facility] Yzgmjnbrut2567 [place] [address]Dr. Selenaneil Deuce RBC 3.51 106/ul Critically low 4.20-5.40 [facility] Comment on above: Performed By: #### C BC ####[facility] Xwonsuzfyj8329 [place] [id number]. Airam Tripathi WBC 8.9 103/ul Normal 4.0-11.0 [facility] Comment on above: Performed By: #### C BC ####[facility] Rwyxbrsuyu2311 [place] [address]Dr. Airam Tripathi PROF 14(COMP METB)on 023 Albumin [Mass/Vol] 3.2 g/dL Critically low 3.4-5.0 [facility] Comment on above: Performed By: #### C MP ####[facility] Hipslmwrkt9967[address] [place], [place] [address]Dr. Airam Tripathi Albumin/Globulin [Mass ratio] 0.9 {ratio} Normal [facility] Comment on above: Performed By: #### C MP ####[facility] Amzdhpmqpr2128[address] [place], [place] [address]Dr. Airam Tripathi ALP [Catalytic activity/Vol] 194 U/L Critically high 46-116 [facility] Comment on above: Performed By: #### C MP ####[facility] Wdgvrnwkwg9602 [place] [address]Dr. Airam Tripathi ALT [Catalytic activity/Vol] 19 U/L Normal 14-59 [facility] Comment on above: Performed By: #### C MP ####[facility] Iysftisgng0228 [place] [address]Dr. Airam Tripathi Anion gap [Moles/Vol] 11.3 mmol/L Normal [facility] Comment on above: Performed By: #### C MP ####[facility] Rxbgukaacr5726 [place] [address]Dr. Airam Tripathi AST [Catalytic activity/Vol] 24 U/L Normal 15-37 [facility] Comment on above: Performed By: #### C MP ####[facility] Mplwmfdzyd4886 [place] [phone]. Airam Tripathi Bilirubin [Mass/Vol] 0.2 mg/dL Normal 0.2-1.0 [facility] Comment on above: Performed By: #### C MP ####[facility] Tbzcepsdgb[address] [place], [place] [address]Dr. Airam Tripathi Calcium [Mass/Vol] 8.7 mg/dL Normal 8.5-10.1 [facility] Comment on above: Performed By: #### C MP ####[facility] Xfzkfqfihu[address] [place], [place] [address]Dr. Airam Tripathi Chloride [Moles/Vol] 101 mmol/L Normal 98-107 [facility] Comment on above: Performed By: #### C MP ####[facility] Nmtrchbgqd4465[address] [place], [place] [address]Dr. Airam Tripathi CO2 [Moles/Vol] 27.2 mmol/L Normal 21.0-32.0 [facility] Comment on above: Performed By: #### C MP ####[facility] Hugszgirin0055[address] [place], [place] [address]Dr. Airam Tripathi Creatinine [Mass/Vol] 1.17 mg/dL Critically high 0.55-1.02 [facility] Comment on above: Performed By: #### C MP ####[facility] Kxtqpznsld1978[address] [place], [place] [address]Dr. Airam Tripathi EGFR-AF SLOVENIAN 57 mL/min/1.73m2 Critically low >=60 [facility] Comment on above: Performed By: #### C MP ####[facility] Migguoubap476[address] [place], [place] [address]Dr. Airam Tripathi EGFR-NON AF SLOVENIAN 47 mL/min/1.73m2 Critically low >=60 [facility] Comment on above: Performed By: #### C MP ####[facility] Fbyuptldot2435[address] [place], [place] [address]Dr. Airam Tripathi Globulin (S) [Mass/Vol] 3.5 g/dL Normal [facility] Comment on above: Performed By: #### C MP ####[facility] Fzcoorlugf6905 [place] [address]Dr. Airam Tripathi Glucose [Mass/Vol] 86 mg/dL Normal 74-106 [facility] Comment on above: Performed By: #### C MP ####[facility] Reczlcdjhg2086 [place] [address]Dr. Airam Tripathi Potassium [Moles/Vol] 5.5 mmol/L Critically high 3.5-5.1 [facility] Comment on above: Performed By: #### C MP ####[facility] Wqcfnvgygq2133 [place] [address]Dr. Airam Tripathi Protein [Mass/Vol] 6.7 g/dL Normal 6.4-8.2 [facility] Comment on above: Performed By: #### C MP ####[facility] Tkzurgjaru3976[address] [place], [place] [address]Dr. Airam Tripathi Sodium [Moles/Vol] 134 mmol/L Critically low 136-145 [facility] Comment on above: Performed By: #### C MP ####[facility] Byqjowptbu6339[address] [place], [place] [address]Dr. Airam Tripathi Urea nitrogen [Mass/Vol] 26.0 mg/dL Critically high 7.0-18.0 [facility] Comment on above: Performed By: #### C MP ####[facility] Jicbngqldx189[address] [place], [place] [address]Dr. Airam Tripathi Urea nitrogen/Creatinine [Mass ratio] 22.2 mg/mg Normal [facility] Comment on above: Performed By: #### C MP ####[facility] Zlasnizdjj9258[address] [place], [place] [address]Dr. Airam Tripathi OSMOLALITYon 07-08-2022 Osmolality [Osmolality] 273 mosm/kg Critically low 275-295 [facility] Comment on above: Performed By: #### O SMO ####[facility] Vlnbfvazqi8935[address] [place], [place] [address]Dr. Airam Tripathi CBC AUTO DIFFon 07-07-2022 BASO # 0.0 103/ul Normal 0.0-0.1 [facility] Comment on above: Performed By: #### C BC ####[facility] Kuwawtxvpr5249 [place] [phone]. Airam Tripathi Basophils/100 WBC (Bld) 0.4 % Normal 0.2-2.0 [facility] Comment on above: Performed By: #### C BC ####[facility] Abmwuoicqx[address] [place], [place] [address]Dr. Airam Tripathi EO # 0.1 103/ul Normal 0.0-0.7 [facility] Comment on above: Performed By: #### C BC ####[facility] Rgucdhcpet33[address] [place], [place] [address]Dr. Airam Tripathi Eosinophils/100 WBC (Bld) 1.6 % Normal 0.9-7.0 [facility] Comment on above: Performed By: #### C BC ####[facility] Goxwpvlnvl729[address] [place], [place] [address]Dr. Airam Tripathi Erythrocyte distribution width (RBC) [Ratio] 13.1 % Normal 11.0-15.0 [facility] Comment on above: Performed By: #### C BC ####[facility] Brpwzevcio3054[address] [place], [place] [address]Dr. Airam Tripathi Hematocrit (Bld) [Volume fraction] 33.7 % Critically low 36.0-48.0 [facility] Comment on above: Performed By: #### C BC ####[facility] Cgxrbjykgy85[address] [place], [place] [address]Dr. Airam Tripathi Hemoglobin (Bld) [Mass/Vol] 9.9 g/dL Critically low 12.0-16.0 [facility] Comment on above: Performed By: #### C BC ####[facility] Ptycgfaasr1836[address] [place], [place] [address]Dr. Airam Tripathi IG # 0.05 10e3/ul Critically high 0.00-0.03 [facility] Comment on above: Performed By: #### C BC ####[facility] Pfpuatbqlg96[address] [place], [place] [address]Dr. Airam Tripathi IG % 0.6 % Critically high 0.0-0.5 [facility] Comment on above: Performed By: #### C BC ####[facility] Rncqmghyqm9088 [place] [address]Dr. Airam Tripathi LYMPH # 1.2 103/ul Normal 1.2-3.8 [facility] Comment on above: Performed By: #### C BC ####[facility] Wcxvwejtqp7553 [place] [phone]. Airam Tripathi Lymphocytes/100 WBC (Bld) 15.5 % Critically low 20.5-60.0 [facility] Comment on above: Performed By: #### C BC ####[facility] Watqitxlxt0851 [place] [address]DrKianna Tripathi MANUAL DIFF REQ NO Normal [facility] Comment on above: Performed By: #### C BC ####[facility] Ovjiwpcrno4731 [place] [address]DrKianna Tripathi MCH (RBC) [Entitic mass] 28.7 pg Normal 26.7-34.0 [facility] Comment on above: Performed By: #### C BC ####[facility] Ksaeehlggh3619 [place] [address]Dr. Airam Tripathi MCHC (RBC) [Mass/Vol] 29.4 g/dL Critically low 29.9-35.2 [facility] Comment on above: Performed By: #### C BC ####[facility] Urwvlmxpdr[address] [place], [place] [address]DrKianna Tripathi MCV (RBC) [Entitic vol] 97.7 fL Normal 81.0-99.0 [facility] Comment on above: Performed By: #### C BC ####[facility] Dmsiegkazk1363 [place] [address]DrKianna Tripathi MONO # 0.6 103/ul Normal 0.3-0.8 [facility] Comment on above: Performed By: #### C BC ####[facility] Epqwcxyabe4640 [place] [id number] Tripathi Monocytes/100 WBC (Bld) 7.7 % Normal 1.7-12.0 [facility] Comment on above: Performed By: #### C BC ####[facility] Izdcksjglh5245 [place] [phone]. Airam Tripathi NEUT # 5.9 103/ul Normal 1.4-6.5 [facility] Comment on above: Performed By: #### C BC ####[facility] Wirtgomept1794 [place] [phone] Tripathi Neutrophils/100 WBC (Bld) 74.2 % Normal 43.0-75.0 [facility] Comment on above: Performed By: #### C BC ####[facility] Ulutnvondu9087 [place] [phone]. Airam Tripathi Platelet mean volume (Bld) [Entitic vol] 9.4 fL Critically low 9.5-13.5 [facility] Comment on above: Performed By: #### C BC ####[facility] Iteyhrichu5745 [place] [address]Dr. Airam Tripathi PLT 331 103/ul Normal 150-450 [facility] Comment on above: Performed By: #### C BC ####[facility] Oaisyyeoyd7692 [place] [address]Dr. Airam Tripathi RBC 3.45 106/ul Critically low 4.20-5.40 [facility] Comment on above: Performed By: #### C BC ####[facility] Lqnvouvpsz3269 [place] [phone] Tripathi WBC 7.9 103/ul Normal 4.0-11.0 [facility] Comment on above: Performed By: #### C BC ####[facility] Oabfzudhtz3187 [place] [phone] Tripathi PROF 14(COMP METB)on 023 Albumin [Mass/Vol] 3.4 g/dL Normal 3.4-5.0 [facility] Comment on above: Performed By: #### C MP ####[facility] Bxihicilyr6156 [place] [address]DrKianna Tripathi Albumin/Globulin [Mass ratio] 1.1 {ratio} Normal [facility] Comment on above: Performed By: #### C MP ####[facility] Eyfcqgyofe0125 [place] [address]Dr. Airam Tripathi ALP [Catalytic activity/Vol] 197 U/L Critically high 46-116 [facility] Comment on above: Performed By: #### C MP ####[facility] Wnvllxejli3947 [place] [address]Dr. Airam Deuce ALT [Catalytic activity/Vol] 18 U/L Normal 14-59 [facility] Comment on above: Performed By: #### C MP ####[facility] Zqfmnacmfy8033 [place] [address]Dr. Airam Tripathi Anion gap [Moles/Vol] 12.3 mmol/L Normal [facility] Comment on above: Performed By: #### C MP ####[facility] Ucsbtorzmc6174[address] [place], [place] [address]Dr. Airam Tripathi AST [Catalytic activity/Vol] 26 U/L Normal 15-37 [facility] Comment on above: Performed By: #### C MP ####[facility] Vmcelwqxel648[address] [place], [place] [address]Dr. Selenaneil Deuce Bilirubin [Mass/Vol] 0.3 mg/dL Normal 0.2-1.0 [facility] Comment on above: Performed By: #### C MP ####[facility] Nqugoqbfhu8749[address] [place], [place] [address]Dr. Airam Tripathi Calcium [Mass/Vol] 8.6 mg/dL Normal 8.5-10.1 [facility] Comment on above: Performed By: #### C MP ####[facility] Dcqaqtdruo0271 [place] [address]Dr. Airam Tripathi Chloride [Moles/Vol] 96 mmol/L Critically low 98-107 [facility] Comment on above: Performed By: #### C MP ####[facility] Ucjbuwyqgz4224 [place] [address]Dr. Airam Tripathi CO2 [Moles/Vol] 27.8 mmol/L Normal 21.0-32.0 [facility] Comment on above: Performed By: #### C MP ####[facility] Zebslavpns3897 [place] [phone]. Airam Tripathi Creatinine [Mass/Vol] 1.55 mg/dL Critically high 0.55-1.02 [facility] Comment on above: Performed By: #### C MP ####[facility] Xyyyzkeuxh9760 [place] [phone]. Airam Tripathi EGFR-AF SLOVENIAN 41 mL/min/1.73m2 Critically low >=60 [facility] Comment on above: Performed By: #### C MP ####[facility] Gppazkzlqi7833 [place] [phone]. Airam Deuce EGFR-NON AF SLOVENIAN 34 mL/min/1.73m2 Critically low >=60 [facility] Comment on above: Performed By: #### C MP ####[facility] Aswffnrsdo94[address] [place], [place] [address]Dr. Airam Deuce Globulin (S) [Mass/Vol] 3.2 g/dL Normal [facility] Comment on above: Performed By: #### C MP ####[facility] Ofcgwiexjq2395[address] [place], [place] [address]Dr. Airam Deuce Glucose [Mass/Vol] 87 mg/dL Normal 74-106 [facility] Comment on above: Performed By: #### C MP ####[facility] Gcnnnkypiu0366 [place] [address]Dr. Airam Deuce Potassium [Moles/Vol] 5.1 mmol/L Normal 3.5-5.1 [facility] Comment on above: Performed By: #### C MP ####[facility] Fbtgrtbaal3041 [place] [address]Dr. Airam Tripathi Protein [Mass/Vol] 6.6 g/dL Normal 6.4-8.2 [facility] Comment on above: Performed By: #### C MP ####[facility] Owjnbqvzbr5143 [place] [address]Dr. Selenaneil Tripathi Sodium [Moles/Vol] 131 mmol/L Critically low 136-145 [facility] Comment on above: Performed By: #### C MP ####[facility] Wrlwnzqnak4501 [place] [address]Dr. Airam Tripathi Urea nitrogen [Mass/Vol] 31.0 mg/dL Critically high 7.0-18.0 [facility] Comment on above: Performed By: #### C MP ####[facility] Nwzqvuuvbp9630[address] [place], [place] [address]Dr. Airam Tripathi Urea nitrogen/Creatinine [Mass ratio] 20.0 mg/mg Normal [facility] Comment on above: Performed By: #### C MP ####[facility] Ptxjdzvttz8510[address] [place], [place] [address]Dr. Airam Tripathi OSMOLALITYon 07-02-2022 Osmolality [Osmolality] 281 mosm/kg Normal 275-295 [facility] Comment on above: Performed By: #### O SMO ####[facility] Rgvmjzkjoa284[address] [place], [place] [address]Dr. Airam Tripathi CBC AUTO DIFFon 06-29-2022 BASO # 0.0 103/ul Normal 0.0-0.1 [facility] Comment on above: Performed By: #### C BC ####[facility] Njzikdmcxb0937[address] [place], [place] [address]Dr. Airam Deuce Basophils/100 WBC (Bld) 0.3 % Normal 0.2-2.0 [facility] Comment on above: Performed By: #### C BC ####[facility] Ctofkczins507[address] [place], [place] [address]Dr. Airam Deuce EO # 0.2 103/ul Normal 0.0-0.7 [facility] Comment on above: Performed By: #### C BC ####[facility] Lxwwelyymr696[address] [place], [place] [address]Dr. Airam Deuce Eosinophils/100 WBC (Bld) 2.3 % Normal 0.9-7.0 [facility] Comment on above: Performed By: #### C BC ####[facility] Yifxocpfls1859[address] [place], [place] [address]Dr. Airam Tripathi Erythrocyte distribution width (RBC) [Ratio] 13.2 % Normal 11.0-15.0 [facility] Comment on above: Performed By: #### C BC ####[facility] Obkdvdwguf2906 [place] [address]Dr. Airam Tripathi Hematocrit (Bld) [Volume fraction] 28.2 % Critically low 36.0-48.0 [facility] Comment on above: Performed By: #### C BC ####[facility] Ezctuztzfb0448[address] [place], [place] [address]Dr. Airam Tripathi Hemoglobin (Bld) [Mass/Vol] 9.1 g/dL Critically low 12.0-16.0 [facility] Comment on above: Performed By: #### C BC ####[facility] Zmmhgsidvt9155[address] [place], [place] [address]DrKianna Tripathi IG # 0.03 10e3/ul Normal 0.00-0.03 [facility] Comment on above: Performed By: #### C BC ####[facility] Djzzomnupm35[address] [place], [place] [address]Dr. Airam Tripathi IG % 0.4 % Normal 0.0-0.5 [facility] Comment on above: Performed By: #### C BC ####[facility] Lsxwudaxlg722[address] [place], [place] [address]DrKianna Tripathi LYMPH # 1.0 103/ul Critically low 1.2-3.8 [facility] Comment on above: Performed By: #### C BC ####[facility] Iofczljvxd2084[address] [place], [place] [address]DrKianna Tripathi Lymphocytes/100 WBC (Bld) 12.8 % Critically low 20.5-60.0 [facility] Comment on above: Performed By: #### C BC ####[facility] Hntcurisva066[address] [place], [place] [address]DrKianna Tripathi MANUAL DIFF REQ NO Normal [facility] Comment on above: Performed By: #### C BC ####[facility] Dwsgdjwpjz429[address] [place], [place] [address]Dr. Airam Tripathi MCH (RBC) [Entitic mass] 29.9 pg Normal 26.7-34.0 [facility] Comment on above: Performed By: #### C BC ####[facility] Tbnwqbekfw5105 [place] [address]Dr. Airam Tripathi MCHC (RBC) [Mass/Vol] 32.3 g/dL Normal 29.9-35.2 [facility] Comment on above: Performed By: #### C BC ####[facility] Zdnigosckn3643 [place] [address]Dr. Airam Tripathi MCV (RBC) [Entitic vol] 92.8 fL Normal 81.0-99.0 [facility] Comment on above: Performed By: #### C BC ####[facility] Hacougwncc0926[address] [place], [place] [address]DrKianna Tripathi MONO # 0.5 103/ul Normal 0.3-0.8 [facility] Comment on above: Performed By: #### C BC ####[facility] Jkddnqudwa8187[address] [place], [place] [address]Dr. Airam Tripathi Monocytes/100 WBC (Bld) 6.0 % Normal 1.7-12.0 [facility] Comment on above: Performed By: #### C BC ####[facility] Nungcsgwcx05232[address] [place], [place] [address]Dr. Airam Tripathi NEUT # 6.0 103/ul Normal 1.4-6.5 [facility] Comment on above: Performed By: #### C BC ####[facility] Agjiutfhmb709[address] [place], [place] [address]Dr. Airam Tripathi Neutrophils/100 WBC (Bld) 78.2 % Critically high 43.0-75.0 [facility] Comment on above: Performed By: #### C BC ####[facility] Qzncawmzqr2612[address] [place], [place] [address]DrKianna Tripathi Platelet mean volume (Bld) [Entitic vol] 9.0 fL Critically low 9.5-13.5 [facility] Comment on above: Performed By: #### C BC ####[facility] Ufwkwtetky930[address] [place], [place] [address]Dr. Airam Tripathi PLT 332 103/ul Normal 150-450 [facility] Comment on above: Performed By: #### C BC ####[facility] Llefijtgfd7986 [place] [address]Dr. Airam Tripathi RBC 3.04 106/ul Critically low 4.20-5.40 [facility] Comment on above: Performed By: #### C BC ####[facility] Kafkhjonza1200 [place] [id number]. Airam Tripathi WBC 7.7 103/ul Normal 4.0-11.0 [facility] Comment on above: Performed By: #### C BC ####[facility] Oackqkxslc9082 [place] [address]DrKianna Tripathi PROF 14(COMP METB)on 023 Albumin [Mass/Vol] 3.2 g/dL Critically low 3.4-5.0 [facility] Comment on above: Performed By: #### C MP ####[facility] Iyqufxsiel0916 [place] [address]DrKianna Tripathi Albumin/Globulin [Mass ratio] 0.9 {ratio} Normal [facility] Comment on above: Performed By: #### C MP ####[facility] Bcsnomdfvg4481 [place] [address]Dr. Airam Tripathi ALP [Catalytic activity/Vol] 135 U/L Critically high 46-116 [facility] Comment on above: Performed By: #### C MP ####[facility] Uufhcvuhgn6983 [place] [address]Dr. Airam Tripathi ALT [Catalytic activity/Vol] 25 U/L Normal 14-59 [facility] Comment on above: Performed By: #### C MP ####[facility] Njxtuuqodt9554 [place] [id number] Tripathi Anion gap [Moles/Vol] 9.1 mmol/L Normal [facility] Comment on above: Performed By: #### C MP ####[facility] Plqltwzxna8398 [place] [phone]. Airam Tripathi AST [Catalytic activity/Vol] 34 U/L Normal 15-37 [facility] Comment on above: Performed By: #### C MP ####[facility] Bieqbtsofu5819 [place] [phone]. Airam Tripathi Bilirubin [Mass/Vol] 0.3 mg/dL Normal 0.2-1.0 [facility] Comment on above: Performed By: #### C MP ####[facility] Qlwhqpocxj9362 [place] [phone]. Airam Tripathi Calcium [Mass/Vol] 8.6 mg/dL Normal 8.5-10.1 [facility] Comment on above: Performed By: #### C MP ####[facility] Lxzuurrwej5713 [place] [phone]. Airam Tripathi Chloride [Moles/Vol] 99 mmol/L Normal 98-107 [facility] Comment on above: Performed By: #### C MP ####[facility] Qzicmpjthc7091 [place] [phone]. Airam Tripathi CO2 [Moles/Vol] 29.1 mmol/L Normal 21.0-32.0 [facility] Comment on above: Performed By: #### C MP ####[facility] Popxyfmgbg1974 [place] [phone]. Airam Tripathi Creatinine [Mass/Vol] 1.40 mg/dL Critically high 0.55-1.02 [facility] Comment on above: Performed By: #### C MP ####[facility] Tbpmuxbloa0151 [place] [phone]. Airam Tripathi EGFR-AF SLOVENIAN 46 mL/min/1.73m2 Critically low >=60 [facility] Comment on above: Performed By: #### C MP ####[facility] Bwoipwtvsi5451 [place] [phone]. Airam Tripathi EGFR-NON AF SLOVENIAN 38 mL/min/1.73m2 Critically low >=60 [facility] Comment on above: Performed By: #### C MP ####[facility] Dtjxmfbzmu9626 [place] [phone]. Airam Tripathi Globulin (S) [Mass/Vol] 3.4 g/dL Normal [facility] Comment on above: Performed By: #### C MP ####[facility] Ysvlnmioqy1832 [place] [address]Dr. Airam Tripathi Glucose [Mass/Vol] 83 mg/dL Normal 74-106 [facility] Comment on above: Performed By: #### C MP ####[facility] Fdotyntawi3912 [place] [address]Dr. Airam Tripathi Potassium [Moles/Vol] 4.2 mmol/L Normal 3.5-5.1 [facility] Comment on above: Performed By: #### C MP ####[facility] Wrwrvpotpi[address] [place], [place] [address]Dr. Airam Tripathi Protein [Mass/Vol] 6.6 g/dL Normal 6.4-8.2 [facility] Comment on above: Performed By: #### C MP ####[facility] Pmvurbskfn193[address] [place], [place] [address]Dr. Airam Tripathi Sodium [Moles/Vol] 133 mmol/L Critically low 136-145 Th [facility] Comment on above: Performed By: #### C MP ####[facility] Awxmikxfsv[address] [place], [place] [address]Dr. Airam Tripathi Urea nitrogen [Mass/Vol] 37.0 mg/dL Critically high 7.0-18.0 [facility] Comment on above: Performed By: #### C MP ####[facility] Mtpqonbjmh7[address] [place], [place] [address]Dr. Airam Tripathi Urea nitrogen/Creatinine [Mass ratio] 26.4 mg/mg Normal [facility] Comment on above: Performed By: #### C MP ####[facility] Knmdecvqbr88[address] [place], [place] [address]Dr. Airam Deuce BNPon 06-18-2022 Natriuretic peptide B (Bld) [Mass/Vol] 5826.0 pg/mL Critically high <=900.0 [facility] Comment on above: Performed By: #### B INSTRUMENT MAKER AND REPAIRER, CMP ####[facility] Wxbblajcqo74[address] [place], [place] [address]Dr. Airam Deuce CBC AUTO DIFFon 06-18-2022 BASO # 0.0 103/ul Normal 0.0-0.1 [facility] Comment on above: Performed By: #### C BC ####[facility] Iprqbrpvbr7396[address] [place], [place] [address]Dr. Airam Tripathi Basophils/100 WBC (Bld) 0.4 % Normal 0.2-2.0 [facility] Comment on above: Performed By: #### C BC ####[facility] Asljnxquhe023[address] [place], [place] [address]Dr. Airam Tripathi EO # 0.1 103/ul Normal 0.0-0.7 [facility] Comment on above: Performed By: #### C BC ####[facility] Apovbdyxjq213[address] [place], [place] [address]Dr. Airam Tripathi Eosinophils/100 WBC (Bld) 1.3 % Normal 0.9-7.0 [facility] Comment on above: Performed By: #### C BC ####[facility] Zwhomedfsy128[address] [place], [place] [address]Dr. Airam Tripathi Erythrocyte distribution width (RBC) [Ratio] 13.4 % Normal 11.0-15.0 [facility] Comment on above: Performed By: #### C BC ####[facility] Npkmbuxncj7901[address] [place], [place] [address]Dr. Airam Tripathi Hematocrit (Bld) [Volume fraction] 27.3 % Critically low 36.0-48.0 [facility] Comment on above: Performed By: #### C BC ####[facility] Nvpkelmumz0420[address] [place], [place] [address]Dr. Airam Tripathi Hemoglobin (Bld) [Mass/Vol] 8.6 g/dL Critically low 12.0-16.0 [facility] Comment on above: Performed By: #### C BC ####[facility] Hdvreocrwx3189[address] [place], [place] [address]Dr. Airam Tripathi IG # 0.08 10e3/ul Critically high 0.00-0.03 [facility] Comment on above: Performed By: #### C BC ####[facility] Eyniqtlyxe0[address] [place] [id number]. Airam Tripathi IG % 0.8 % Critically high 0.0-0.5 [facility] Comment on above: Performed By: #### C BC ####[facility] Yczvzkbswx2118 [place] [address]Dr. Airam Deuce LYMPH # 1.9 103/ul Normal 1.2-3.8 [facility] Comment on above: Performed By: #### C BC ####[facility] Lpxwvrqkjt0204 [place] [address]Dr. Airam Deuce Lymphocytes/100 WBC (Bld) 19.3 % Critically low 20.5-60.0 [facility] Comment on above: Performed By: #### C BC ####[facility] Etlqotqxuj0963 [place] [address]Dr. Selenaneil Tripathi MANUAL DIFF REQ NO Normal [facility] Comment on above: Performed By: #### C BC ####[facility] Aqginwzmug5973 [place] [address]Dr. Airam Deuce MCH (RBC) [Entitic mass] 29.6 pg Normal 26.7-34.0 [facility] Comment on above: Performed By: #### C BC ####[facility] Fkrpzvsahi6490[address] [place], [place] [address]Dr. Airam Tripathi MCHC (RBC) [Mass/Vol] 31.5 g/dL Normal 29.9-35.2 [facility] Comment on above: Performed By: #### C BC ####[facility] Zrjordqafg1786 [place] [address]Dr. Airam Deuce MCV (RBC) [Entitic vol] 93.8 fL Normal 81.0-99.0 [facility] Comment on above: Performed By: #### C BC ####[facility] Lvmlyxyrqu2766[address] [place], [place] [address]Dr. Selenaneil Deuce MONO # 0.6 103/ul Normal 0.3-0.8 [facility] Comment on above: Performed By: #### C BC ####[facility] Cifntlmbwn4699[address] [place], [place] [address]Dr. Airam Tripathi Monocytes/100 WBC (Bld) 6.5 % Normal 1.7-12.0 [facility] Comment on above: Performed By: #### C BC ####[facility] Jjhzgvuxae3498 [place] [id number]. Airam Tripathi NEUT # 6.9 103/ul Critically high 1.4-6.5 [facility] Comment on above: Performed By: #### C BC ####[facility] Npflioafaa9921 [place] [address]Dr. Airam Tripathi Neutrophils/100 WBC (Bld) 71.7 % Normal 43.0-75.0 [facility] Comment on above: Performed By: #### C BC ####[facility] Wwpljygzoq9944 [place] [address]Dr. Airam Tripathi Platelet mean volume (Bld) [Entitic vol] 8.5 fL Critically low 9.5-13.5 [facility] Comment on above: Performed By: #### C BC ####[facility] Eldelsoukk2929 [place] [address]Dr. Airam Tripathi PLT 295 103/ul Normal 150-450 [facility] Comment on above: Performed By: #### C BC ####[facility] Piutffzdzz3778 [place] [address]Dr. Airam Tripathi RBC 2.91 106/ul Critically low 4.20-5.40 [facility] Comment on above: Performed By: #### C BC ####[facility] Ihkxphmrvs2615 [place] [id number]. Airam Tripathi WBC 9.7 103/ul Normal 4.0-11.0 [facility] Comment on above: Performed By: #### C BC ####[facility] Zlndbdspmj4569 [place] [address]Dr. Airam Tripathi PROF 14(COMP METB)on 06-18-2 022 Albumin [Mass/Vol] 2.8 g/dL Critically low 3.4-5.0 [facility] Comment on above: Performed By: #### B INSTRUMENT MAKER AND REPAIRER, CMP ####[facility] Znzotxfeob1140 [place] [phone]. Airam Tripathi Albumin/Globulin [Mass ratio] 0.9 {ratio} Normal [facility] Comment on above: Performed By: #### B INSTRUMENT MAKER AND REPAIRER, CMP ####[facility] Zecsyuzhkl1909 [place] [phone]. Airam Tripathi ALP [Catalytic activity/Vol] 125 U/L Critically high 46-116 [facility] Comment on above: Performed By: #### B INSTRUMENT MAKER AND REPAIRER, CMP ####[facility] Zabknvenyo9631 [place] [phone]. Airam Tripathi ALT [Catalytic activity/Vol] 16 U/L Normal 14-59 [facility] Comment on above: Performed By: #### B INSTRUMENT MAKER AND REPAIRER, CMP ####[facility] Npeafqekoh4804 [place] [phone]. Airam Tripathi Anion gap [Moles/Vol] 11.4 mmol/L Normal [facility] Comment on above: Performed By: #### B INSTRUMENT MAKER AND REPAIRER, CMP ####[facility] Rzdfpatnkq9311 [place] [phone]. Airam Tripathi AST [Catalytic activity/Vol] 23 U/L Normal 15-37 [facility] Comment on above: Performed By: #### B INSTRUMENT MAKER AND REPAIRER, CMP ####[facility] Kxraarperu7524 [place] [phone]. Airam Deuce Bilirubin [Mass/Vol] 0.2 mg/dL Normal 0.2-1.0 [facility] Comment on above: Performed By: #### B INSTRUMENT MAKER AND REPAIRER, CMP ####[facility] Ggbxinaatm6131 [place] [phone]. Airam Deuce Calcium [Mass/Vol] 8.1 mg/dL Critically low 8.5-10.1 [facility] Comment on above: Performed By: #### B INSTRUMENT MAKER AND REPAIRER, CMP ####[facility] Mxzrljzqhn7310 [place] [phone]. Selenaneil Deuce Chloride [Moles/Vol] 96 mmol/L Critically low 98-107 [facility] Comment on above: Performed By: #### B INSTRUMENT MAKER AND REPAIRER, CMP ####[facility] Uwzhpihies0715 [place] [address]Dr. Airam Tripathi CO2 [Moles/Vol] 26.6 mmol/L Normal 21.0-32.0 [facility] Comment on above: Performed By: #### B INSTRUMENT MAKER AND REPAIRER, CMP ####[facility] Ivglekxpfn9441 [place] [address]Dr. Airam Tripathi Creatinine [Mass/Vol] 1.31 mg/dL Critically high 0.55-1.02 [facility] Comment on above: Performed By: #### B INSTRUMENT MAKER AND REPAIRER, CMP ####[facility] Arqybhifde0859[address] [place], [place] [address]Dr. Airam Deuce EGFR-AF SLOVENIAN 50 mL/min/1.73m2 Critically low >=60 [facility] Comment on above: Performed By: #### B INSTRUMENT MAKER AND REPAIRER, CMP ####[facility] Wllzfzuzvm7498[address] [place], [place] [address]Dr. Selenaneil Deuce EGFR-NON AF SLOVENIAN 41 mL/min/1.73m2 Critically low >=60 [facility] Comment on above: Performed By: #### B INSTRUMENT MAKER AND REPAIRER, CMP ####[facility] Fabiqebfqu2329[address] [place], [place] [address]Dr. Airam Deuce Globulin (S) [Mass/Vol] 3.0 g/dL Normal [facility] Comment on above: Performed By: #### B INSTRUMENT MAKER AND REPAIRER, CMP ####[facility] Cudnfccdpb179[address] [place], [place] [address]Dr. Airam Deuce Glucose [Mass/Vol] 82 mg/dL Normal 74-106 [facility] Comment on above: Performed By: #### B INSTRUMENT MAKER AND REPAIRER, CMP ####[facility] Mroauaeoff8439[address] [place], [place] [address]Dr. Airam Deuce Potassium [Moles/Vol] 4.0 mmol/L Normal 3.5-5.1 [facility] Comment on above: Performed By: #### B INSTRUMENT MAKER AND REPAIRER, CMP ####[facility] Vmjtpdrugc9069[address] [place], [place] [address]Dr. Airam Tripathi Protein [Mass/Vol] 5.8 g/dL Critically low 6.4-8.2 Th [facility] Comment on above: Performed By: #### B INSTRUMENT MAKER AND REPAIRER, CMP ####[facility] Atryffgcbk7159[address] [place], [place] [address]Dr. Airam Tripathi Sodium [Moles/Vol] 130 mmol/L Critically low 136-145 Th [facility] Comment on above: Performed By: #### B INSTRUMENT MAKER AND REPAIRER, CMP ####[facility] Udvgndrnym364[address] [place], [place] [address]Dr. Airam Tripathi Urea nitrogen [Mass/Vol] 19.0 mg/dL Critically high 7.0-18.0 [facility] Comment on above: Performed By: #### B INSTRUMENT MAKER AND REPAIRER, CMP ####[facility] Curroosnxp5645[address] [place], [place] [address]Dr. Airam Tripathi Urea nitrogen/Creatinine [Mass ratio] 14.5 mg/mg Normal [facility] Comment on above: Performed By: #### B INSTRUMENT MAKER AND REPAIRER, CMP ####[facility] Xfomjmvbca0200[address] [place], [place] [address]Dr. Airam Deuce BNPon 06-17-2022 Natriuretic peptide B (Bld) [Mass/Vol] 2510.0 pg/mL Critically high <=900.0 [facility] Comment on above: Performed By: #### B INSTRUMENT MAKER AND REPAIRER, CMP ####[facility] Vikqxipdpo4618[address] [place], [place] [address]Dr. Airam Tripathi CBC AUTO DIFFon 06-17-2022 BASO # 0.0 103/ul Normal 0.0-0.1 [facility] Comment on above: Performed By: #### C BC ####[facility] Umrdyppmpy805[address] [place], [place] [address]Dr. Airam Tripathi Basophils/100 WBC (Bld) 0.4 % Normal 0.2-2.0 [facility] Comment on above: Performed By: #### C BC ####[facility] Efwrcimtwd450[address] [place], [place] [address]Dr. Airam Tripathi EO # 0.0 103/ul Normal 0.0-0.7 [facility] Comment on above: Performed By: #### C BC ####[facility] Jbccxgcrhi[address] [place], [place] [address]Dr. Airam Tripathi Eosinophils/100 WBC (Bld) 0.3 % Critically low 0.9-7.0 [facility] Comment on above: Performed By: #### C BC ####[facility] Gubrpfpwmu9525 [place] [address]Dr. Airam Tripathi Erythrocyte distribution width (RBC) [Ratio] 13.6 % Normal 11.0-15.0 [facility] Comment on above: Performed By: #### C BC ####[facility] Mawemeaooh624[address] [place], [place] [address]Dr. Airam Tripathi Hematocrit (Bld) [Volume fraction] 28.9 % Critically low 36.0-48.0 [facility] Comment on above: Performed By: #### C BC ####[facility] Yafykkqaeb20[address] [place], [place] [address]Dr. Airam Tripathi Hemoglobin (Bld) [Mass/Vol] 8.9 g/dL Critically low 12.0-16.0 [facility] Comment on above: Performed By: #### C BC ####[facility] Jgruafrkpj16[address] [place], [place] [address]Dr. Airam Tripathi IG # 0.10 10e3/ul Critically high 0.00-0.03 [facility] Comment on above: Performed By: #### C BC ####[facility] Yblwxatxco5120[address] [place], [place] [address]Dr. Airam Tripathi IG % 1.3 % Critically high 0.0-0.5 [facility] Comment on above: Performed By: #### C BC ####[facility] Gphyqxgazn79[address] [place], [place] [address]Dr. Airam Tripathi LYMPH # 0.7 103/ul Critically low 1.2-3.8 [facility] Comment on above: Performed By: #### C BC ####[facility] Hoyeljlwvr7534[address] [place], [place] [address]Dr. Airam Tripathi Lymphocytes/100 WBC (Bld) 8.1 % Critically low 20.5-60.0 [facility] Comment on above: Performed By: #### C BC ####[facility] Cxxhtitflp9946 [place] [phone]. Airam Tripathi MANUAL DIFF REQ NO Normal [facility] Comment on above: Performed By: #### C BC ####[facility] Eoudxxqylr2850 [place] [phone]. Airam Tripathi MCH (RBC) [Entitic mass] 29.4 pg Normal 26.7-34.0 [facility] Comment on above: Performed By: #### C BC ####[facility] Fpfkyucbep7093 [place] [phone]. Airam Tripathi MCHC (RBC) [Mass/Vol] 30.8 g/dL Normal 29.9-35.2 [facility] Comment on above: Performed By: #### C BC ####[facility] Oijpxfvopj0476 [place] [address]Dr. Airam Tripathi MCV (RBC) [Entitic vol] 95.4 fL Normal 81.0-99.0 [facility] Comment on above: Performed By: #### C BC ####[facility] Owkicmwggy1024 [place] [phone]. Airam Deuce MONO # 0.3 103/ul Normal 0.3-0.8 [facility] Comment on above: Performed By: #### C BC ####[facility] Mkdlrqytnh4522 [place] [phone]. Selenaneil Tripathi Monocytes/100 WBC (Bld) 3.1 % Normal 1.7-12.0 [facility] Comment on above: Performed By: #### C BC ####[facility] Poiejdezwa4092 [place] [phone]. Airam Tripathi NEUT # 7.0 103/ul Critically high 1.4-6.5 [facility] Comment on above: Performed By: #### C BC ####[facility] Uvhtccgmzm5991 [place] [phone]. Airam Tripathi Neutrophils/100 WBC (Bld) 86.8 % Critically high 43.0-75.0 [facility] Comment on above: Performed By: #### C BC ####[facility] Bnvlbllddl5815 [place] [phone]. Selenaneil Deuce Platelet mean volume (Bld) [Entitic vol] 8.3 fL Critically low 9.5-13.5 [facility] Comment on above: Performed By: #### C BC ####[facility] Wqkgnnemnj4903 [place] [phone]. Selenaneil Deuce PLT 279 103/ul Normal 150-450 [facility] Comment on above: Performed By: #### C BC ####[facility] Zcnekgvddq2962 [place] [address]Dr. Airam Tripathi RBC 3.03 106/ul Critically low 4.20-5.40 [facility] Comment on above: Performed By: #### C BC ####[facility] Gehxjmxljz6621 [place] [address]Dr. Airam Tripathi WBC 8.0 103/ul Normal 4.0-11.0 [facility] Comment on above: Performed By: #### C BC ####[facility] Mafjnhbadj1436 [place] [address]Dr. Airam Tripathi PROF 14(COMP METB)on 022 Albumin [Mass/Vol] 2.8 g/dL Critically low 3.4-5.0 [facility] Comment on above: Performed By: #### B INSTRUMENT MAKER AND REPAIRER, CMP ####[facility] Ehztzdmmfs6036 [place] [address]Dr. Airam Tripathi Albumin/Globulin [Mass ratio] 0.9 {ratio} Normal [facility] Comment on above: Performed By: #### B INSTRUMENT MAKER AND REPAIRER, CMP ####[facility] Yzzkmohrhc7139 [place] [address]Dr. Airam Tripathi ALP [Catalytic activity/Vol] 136 U/L Critically high 46-116 [facility] Comment on above: Performed By: #### B INSTRUMENT MAKER AND REPAIRER, CMP ####[facility] Brpocbabzn4839 [place] [address]Dr. Airam Tripathi ALT [Catalytic activity/Vol] 17 U/L Normal 14-59 [facility] Comment on above: Performed By: #### B INSTRUMENT MAKER AND REPAIRER, CMP ####[facility] Jxpqoowxak9[address] [place], [place] [address]Dr. Airam Tripathi Anion gap [Moles/Vol] 12.9 mmol/L Normal [facility] Comment on above: Performed By: #### B INSTRUMENT MAKER AND REPAIRER, CMP ####[facility] Dkbzkeiirl3097[address] [place], [place] [address]Dr. Airam Tripathi AST [Catalytic activity/Vol] 24 U/L Normal 15-37 [facility] Comment on above: Performed By: #### B INSTRUMENT MAKER AND REPAIRER, CMP ####[facility] Wogcqxhprg101[address] [place], [place] [address]Dr. Airam Triptahi Bilirubin [Mass/Vol] 0.2 mg/dL Normal 0.2-1.0 [facility] Comment on above: Performed By: #### B INSTRUMENT MAKER AND REPAIRER, CMP ####[facility] Ukugveicka7365[address] [place], [place] [address]Dr. Airam Tripathi Calcium [Mass/Vol] 8.7 mg/dL Normal 8.5-10.1 [facility] Comment on above: Performed By: #### B INSTRUMENT MAKER AND REPAIRER, CMP ####[facility] Nqzmygpqws9166[address] [place], [place] [address]Dr. Airam Tripathi Chloride [Moles/Vol] 102 mmol/L Normal 98-107 [facility] Comment on above: Performed By: #### B INSTRUMENT MAKER AND REPAIRER, CMP ####[facility] Yhuxvdwdti7118[address] [place], [place] [address]Dr. Selenaneil Tripathi CO2 [Moles/Vol] 23.8 mmol/L Normal 21.0-32.0 [facility] Comment on above: Performed By: #### B INSTRUMENT MAKER AND REPAIRER, CMP ####[facility] Wdmdkgxfar12[address] [place], [place] [address]Dr. Airam Tripathi Creatinine [Mass/Vol] 1.08 mg/dL Critically high 0.55-1.02 [facility] Comment on above: Performed By: #### B INSTRUMENT MAKER AND REPAIRER, CMP ####[facility] Zjusxrgplx494[address] [place], [place] [address]Dr. Airam Tripathi EGFR-AF SLOVENIAN >60 Normal >=60 [facility] Comment on above: Performed By: #### B INSTRUMENT MAKER AND REPAIRER, CMP ####[facility] Iplxbbxxss5157 [place] [phone]. Airam Tripathi EGFR-NON AF SLOVENIAN 52 mL/min/1.73m2 Critically low >=60 [facility] Comment on above: Performed By: #### B INSTRUMENT MAKER AND REPAIRER, CMP ####[facility] Btqoihmngy6418 [place] [phone]. Airam Tripathi Globulin (S) [Mass/Vol] 3.2 g/dL Normal [facility] Comment on above: Performed By: #### B INSTRUMENT MAKER AND REPAIRER, CMP ####[facility] Eszauybksy6131 [place] [address]Dr. Airam Tripathi Glucose [Mass/Vol] 99 mg/dL Normal 74-106 [facility] Comment on above: Performed By: #### B INSTRUMENT MAKER AND REPAIRER, CMP ####[facility] Rrhtblankv2229 [place] [address]Dr. Airam Tripathi Potassium [Moles/Vol] 4.7 mmol/L Normal 3.5-5.1 [facility] Comment on above: Performed By: #### B INSTRUMENT MAKER AND REPAIRER, CMP ####[facility] Obmdowijtf1333 [place] [phone]. Airam Tripathi Protein [Mass/Vol] 6.0 g/dL Critically low 6.4-8.2 Th [facility] Comment on above: Performed By: #### B INSTRUMENT MAKER AND REPAIRER, CMP ####[facility] Ugyfsqqcbb4982 [place] [address]Dr. Airam Tripathi Sodium [Moles/Vol] 134 mmol/L Critically low 136-145 Th [facility] Comment on above: Performed By: #### B INSTRUMENT MAKER AND REPAIRER, CMP ####[facility] Eyhizwojkn6308 [place] [phone]. Airam Tripathi Urea nitrogen [Mass/Vol] 19.0 mg/dL Critically high 7.0-18.0 [facility] Comment on above: Performed By: #### B INSTRUMENT MAKER AND REPAIRER, CMP ####[facility] Lpfkyexxds6193 [place] [phone]. Airam Tripathi Urea nitrogen/Creatinine [Mass ratio] 17.6 mg/mg Normal [facility] Comment on above: Performed By: #### B INSTRUMENT MAKER AND REPAIRER, CMP ####[facility] Mwrkrngbgk[address] [place], [place] [address]Dr. Airam Tripathi PROTIMEon 06-17-2022 INR Coag (PPP) [Relative time] 1.00 {INR} Normal [facility] Comment on above: Performed By: #### P T ####[facility] Wyfjwqxlnt040[address] [place], [place] [address]Dr. Airam Tripathi INR GUIDELINES SEE BELOW Normal [facility] Comment on above: Result Comment: SIDRA RED INR: 2.0 - 3.0 CONDITIONS NOT LISTED BELOW 2.5 - 3.5 FOR PROSTHETIC HEART VALVE REPLACEMENT 2.5 - 3.5 RECURRENT THROMBOSIS Performed By: #### P T ####[facility] Emqmfpkylo15[address] [place], [place] [address]Dr. Airam Tripathi PT Coag (PPP) [Time] 10.8 s Normal 9.0-11.6 [facility] Comment on above: Performed By: #### P T ####[facility] Ghafingecu025[address] [place], [place] [address]Dr. Airam Tripathi PTTon 06-17-2022 aPTT Coag (Bld) [Time] 27.2 s Normal 22.3-36.2 Th [facility] Comment on above: Performed By: #### P TT ####[facility] Dvntnlkxyp3164[address] [place], [place] [address]Dr. Airam Tripathi BNPon 06-16-2022 Natriuretic peptide B (Bld) [Mass/Vol] 2293.0 pg/mL Critically high <=900.0 [facility] Comment on above: Performed By: #### C MP, BNP ####[facility] Jxypkknhqv5499[address] [place], [place] [address]Dr. Airam Tripathi CBC AUTO DIFFon 06-16-2022 BASO # 0.0 103/ul Normal 0.0-0.1 [facility] Comment on above: Performed By: #### C BC ####[facility] Voweiiuuzn5109[address] [place], [place] [address]DrKianna Tripathi Basophils/100 WBC (Bld) 0.4 % Normal 0.2-2.0 [facility] Comment on above: Performed By: #### C BC ####[facility] Mdppeojbdb8736[address] [place], [place] [address]Dr. Airam Tripathi EO # 0.2 103/ul Normal 0.0-0.7 [facility] Comment on above: Performed By: #### C BC ####[facility] Kdhzmpiphq1366[address] [place], [place] [address]Dr. Airam Tripathi Eosinophils/100 WBC (Bld) 3.0 % Normal 0.9-7.0 [facility] Comment on above: Performed By: #### C BC ####[facility] Muzihsfcrb4595[address] [place], [place] [address]Dr. Airam Tripathi Erythrocyte distribution width (RBC) [Ratio] 13.3 % Normal 11.0-15.0 [facility] Comment on above: Performed By: #### C BC ####[facility] Igiyfmstvt4220[address] [place], [place] [address]Dr. Airam Tripathi Hematocrit (Bld) [Volume fraction] 26.2 % Critically low 36.0-48.0 [facility] Comment on above: Performed By: #### C BC ####[facility] Myxfkyykcj3474[address] [place], [place] [address]Dr. Airam Tripathi Hemoglobin (Bld) [Mass/Vol] 8.3 g/dL Critically low 12.0-16.0 [facility] Comment on above: Performed By: #### C BC ####[facility] Kiapjoqckh580[address] [place], [place] [address]Dr. Selenaneil Deuce IG # 0.08 10e3/ul Critically high 0.00-0.03 [facility] Comment on above: Performed By: #### C BC ####[facility] Ebtofauife4814[address] [place], [place] [address]DrKianna Airam Deuce IG % 1.1 % Critically high 0.0-0.5 [facility] Comment on above: Performed By: #### C BC ####[facility] Diameldtdf365[address] [place], [place] [address]Dr. Airam Tripathi LYMPH # 1.2 103/ul Normal 1.2-3.8 [facility] Comment on above: Performed By: #### C BC ####[facility] Bmhcefajax8195 [place] [address]Dr. Airam Tripathi Lymphocytes/100 WBC (Bld) 17.3 % Critically low 20.5-60.0 [facility] Comment on above: Performed By: #### C BC ####[facility] Qcpvuhvmim459[address] [place], [place] [address]DrKianna Tripathi MANUAL DIFF REQ NO Normal [facility] Comment on above: Performed By: #### C BC ####[facility] Vavaescsxh5148[address] [place], [place] [address]Dr. Airam Tripathi MCH (RBC) [Entitic mass] 30.3 pg Normal 26.7-34.0 [facility] Comment on above: Performed By: #### C BC ####[facility] Deofyslvak6640[address] [place], [place] [address]Dr. Airam Tripathi MCHC (RBC) [Mass/Vol] 31.7 g/dL Normal 29.9-35.2 [facility] Comment on above: Performed By: #### C BC ####[facility] Usvyqrzfii888[address] [place], [place] [address]DrKianna Tripathi MCV (RBC) [Entitic vol] 95.6 fL Normal 81.0-99.0 [facility] Comment on above: Performed By: #### C BC ####[facility] Gziamzfgtu54[address] [place], [place] [address]DrKianna Tripathi MONO # 0.5 103/ul Normal 0.3-0.8 [facility] Comment on above: Performed By: #### C BC ####[facility] Cvpxedwbwl[address] [place], [place] [address]DrKianna Tripathi Monocytes/100 WBC (Bld) 7.1 % Normal 1.7-12.0 [facility] Comment on above: Performed By: #### C BC ####[facility] Lfpbkicjfz[address] [place], [place] [address]Dr. Airam Tripathi NEUT # 5.0 103/ul Normal 1.4-6.5 [facility] Comment on above: Performed By: #### C BC ####[facility] Znlctsvlfp4160 [place] [address]Dr. Airam Tripathi Neutrophils/100 WBC (Bld) 71.1 % Normal 43.0-75.0 [facility] Comment on above: Performed By: #### C BC ####[facility] Mdgcxuquxa3241 [place] [address]Dr. Airam Tripathi Platelet mean volume (Bld) [Entitic vol] 8.2 fL Critically low 9.5-13.5 [facility] Comment on above: Performed By: #### C BC ####[facility] Sppfyqcghg2703 [place] [address]Dr. Airam Tripathi PLT 247 103/ul Normal 150-450 [facility] Comment on above: Performed By: #### C BC ####[facility] Nlrlyexswf2547 [place] [address]Dr. Airam Tripathi RBC 2.74 106/ul Critically low 4.20-5.40 [facility] Comment on above: Performed By: #### C BC ####[facility] Cborocdhjx[address] [place], [place] [address]DrKianna Airam Tripathi WBC 7.1 103/ul Normal 4.0-11.0 [facility] Comment on above: Performed By: #### C BC ####[facility] Mkglgikjiy10[address] [place], [place] [address]Dr. Airam Tripathi CTA CHEST WO W CONon 022 CTA CHEST WO W CON Normal [facility] PROF 14(COMP METB)on 022 Albumin [Mass/Vol] 2.6 g/dL Critically low 3.4-5.0 [facility] Comment on above: Performed By: #### C MP, BNP ####[facility] Liwxzftymn7361 [place] [address]Dr. Airam Tripathi Albumin/Globulin [Mass ratio] 0.8 {ratio} Normal [facility] Comment on above: Performed By: #### C MP, BNP ####[facility] Ecjncugulh7284 [place] [address]Dr. Airam Tripathi ALP [Catalytic activity/Vol] 130 U/L Critically high 46-116 [facility] Comment on above: Performed By: #### C MP, BNP ####[facility] Xrrgrywuqk7371 [place] [address]Dr. Airam Tripathi ALT [Catalytic activity/Vol] 12 U/L Critically low 14-59 [facility] Comment on above: Performed By: #### C MP, BNP ####[facility] Tlicdjursu905[address] [place], [place] [address]Dr. Airam Tripathi Anion gap [Moles/Vol] 11.8 mmol/L Normal [facility] Comment on above: Performed By: #### C MP, BNP ####[facility] Jlowutzmwn255[address] [place], [place] [address]Dr. Airam Deuce AST [Catalytic activity/Vol] 22 U/L Normal 15-37 [facility] Comment on above: Performed By: #### C MP, BNP ####[facility] Zpbcpcmvgr4889[address] [place], [place] [address]Dr. Airam Deuce Bilirubin [Mass/Vol] 0.2 mg/dL Normal 0.2-1.0 [facility] Comment on above: Performed By: #### C MP, BNP ####[facility] Uxetelrkpn1326[address] [place], [place] [address]Dr. Airam Deuce Calcium [Mass/Vol] 8.0 mg/dL Critically low 8.5-10.1 [facility] Comment on above: Performed By: #### C MP, BNP ####[facility] Hagsillghw9[address] [place], [place] [address]Dr. Airam Tripathi Chloride [Moles/Vol] 104 mmol/L Normal 98-107 [facility] Comment on above: Performed By: #### C MP, BNP ####[facility] Pjwdxfgvki350[address] [place], [place] [address]Dr. Airam Tripathi CO2 [Moles/Vol] 22.8 mmol/L Normal 21.0-32.0 [facility] Comment on above: Performed By: #### C MP, BNP ####[facility] Tpheggnnwy1316 [place] [id number]. Airam Tripathi Creatinine [Mass/Vol] 1.07 mg/dL Critically high 0.55-1.02 [facility] Comment on above: Performed By: #### C MP, BNP ####[facility] Fpmnjjqkwv2452 [place] [id number]. Airam Deuce EGFR-AF SLOVENIAN >60 Normal >=60 [facility] Comment on above: Performed By: #### C MP, BNP ####[facility] Furhacjxzk2523 [place] [id number]. Airam Deuce EGFR-NON AF SLOVENIAN 52 mL/min/1.73m2 Critically low >=60 [facility] Comment on above: Performed By: #### C MP, BNP ####[facility] Olhkucomyc8046 [place] [address]Dr. Airam Tripathi Globulin (S) [Mass/Vol] 3.1 g/dL Normal [facility] Comment on above: Performed By: #### C MP, BNP ####[facility] Rqdmaonwio5246 [place] [address]Dr. Airam Deuce Glucose [Mass/Vol] 85 mg/dL Normal 74-106 [facility] Comment on above: Performed By: #### C MP, BNP ####[facility] Oxqqwtnpwx9572 [place] [address]Dr. Airam Deuce Potassium [Moles/Vol] 4.6 mmol/L Normal 3.5-5.1 [facility] Comment on above: Performed By: #### C MP, BNP ####[facility] Ykzqgndsam5834 [place] [id number]. Selenaneil Tripathi Protein [Mass/Vol] 5.7 g/dL Critically low 6.4-8.2 [facility] Comment on above: Performed By: #### C MP, BNP ####[facility] Tqxsarubhw8256 [place] [address]Dr. Airam Tripathi Sodium [Moles/Vol] 134 mmol/L Critically low 136-145 [facility] Comment on above: Performed By: #### C MP, BNP ####[facility] Oxcglblwjz24[address] [place], [place] [address]Dr. Airam Tripathi Urea nitrogen [Mass/Vol] 24.0 mg/dL Critically high 7.0-18.0 [facility] Comment on above: Performed By: #### C MP, BNP ####[facility] Hqedxxzxnu17[address] [place], [place] [address]Dr. Airam Tripathi Urea nitrogen/Creatinine [Mass ratio] 22.4 mg/mg Normal [facility] Comment on above: Performed By: #### C MP, BNP ####[facility] Idiwlshrmt9790[address] [place], [place] [address]Dr. Airam Tripathi BNPon 06-15-2022 Natriuretic peptide B (Bld) [Mass/Vol] 934.0 pg/mL Critically high <=900.0 [facility] Comment on above: Performed By: #### C MP, BNP ####[facility] Bauvffjijm411[address] [place], [place] [address]Dr. Airam Tripathi CBC AUTO DIFFon 06-15-2022 BASO # 0.0 103/ul Normal 0.0-0.1 [facility] Comment on above: Performed By: #### C BC ####[facility] Yygyqohqch[address] [place], [place] [address]Dr. Airam Deuce Basophils/100 WBC (Bld) 0.2 % Normal 0.2-2.0 [facility] Comment on above: Performed By: #### C BC ####[facility] Fjxubgpvae3958[address] [place], [place] [address]Dr. Airam Tripathi EO # 0.1 103/ul Normal 0.0-0.7 [facility] Comment on above: Performed By: #### C BC ####[facility] Csetgfxuwf0174[address] [place], [place] [address]Dr. Airam Deuce Eosinophils/100 WBC (Bld) 2.1 % Normal 0.9-7.0 [facility] Comment on above: Performed By: #### C BC ####[facility] Oikzypwdfz6898 [place] [address]Dr. Airam Tripathi Erythrocyte distribution width (RBC) [Ratio] 12.9 % Normal 11.0-15.0 [facility] Comment on above: Performed By: #### C BC ####[facility] Denwpywouj843[address] [place], [place] [address]Dr. Airam Tripathi Hematocrit (Bld) [Volume fraction] 24.9 % Critically low 36.0-48.0 [facility] Comment on above: Performed By: #### C BC ####[facility] Tqcvsodjis8590[address] [place], [place] [address]Dr. Airam Tripathi Hemoglobin (Bld) [Mass/Vol] 7.9 g/dL Critically low 12.0-16.0 [facility] Comment on above: Performed By: #### C BC ####[facility] Pmyhhrvprj8[address] [place], [place] [address]Dr. Airam Tripathi IG # 0.05 10e3/ul Critically high 0.00-0.03 [facility] Comment on above: Performed By: #### C BC ####[facility] Ssveixgcam3844[address] [place], [place] [address]Dr. Airam Tripathi IG % 0.8 % Critically high 0.0-0.5 [facility] Comment on above: Performed By: #### C BC ####[facility] Xzmnirxfep416[address] [place], [place] [address]Dr. Airam Tripathi LYMPH # 0.9 103/ul Critically low 1.2-3.8 [facility] Comment on above: Performed By: #### C BC ####[facility] Wcnnjagugh418[address] [place], [place] [address]Dr. Selenaneil Tripathi Lymphocytes/100 WBC (Bld) 13.7 % Critically low 20.5-60.0 [facility] Comment on above: Performed By: #### C BC ####[facility] Bkxinvxcfr6545[address] [place], [place] [address]Dr. Selenaneil Tripathi MANUAL DIFF REQ NO Normal [facility] Comment on above: Performed By: #### C BC ####[facility] Usihawgbaz8086 [place] [phone]. Airam Tripathi MCH (RBC) [Entitic mass] 30.2 pg Normal 26.7-34.0 [facility] Comment on above: Performed By: #### C BC ####[facility] Otxblszdfp5214 [place] [address]Dr. Airam Tripathi MCHC (RBC) [Mass/Vol] 31.7 g/dL Normal 29.9-35.2 [facility] Comment on above: Performed By: #### C BC ####[facility] Ybfv[address]dzr[address] [place], [place] [address]Dr. Airam Tripathi MCV (RBC) [Entitic vol] 95.0 fL Normal 81.0-99.0 [facility] Comment on above: Performed By: #### C BC ####[facility] Sdskerwfdi5454[address] [place], [place] [address]Dr. Airam Tripathi MONO # 0.4 103/ul Normal 0.3-0.8 [facility] Comment on above: Performed By: #### C BC ####[facility] Rfzrbbdloh7546[address] [place], [place] [address]Dr. Airam Tripathi Monocytes/100 WBC (Bld) 6.7 % Normal 1.7-12.0 [facility] Comment on above: Performed By: #### C BC ####[facility] Tktltpjyne864[address] [place], [place] [address]Dr. Airam Tripathi NEUT # 5.0 103/ul Normal 1.4-6.5 [facility] Comment on above: Performed By: #### C BC ####[facility] Vlgomxyvhc[address] [place], [place] [address]Dr. Airam Tripathi Neutrophils/100 WBC (Bld) 76.5 % Critically high 43.0-75.0 [facility] Comment on above: Performed By: #### C BC ####[facility] Whwzgjzlnt1256[address] [place], [place] [address]Dr. Airam Tripathi Platelet mean volume (Bld) [Entitic vol] 8.4 fL Critically low 9.5-13.5 [facility] Comment on above: Performed By: #### C BC ####[facility] Fbwetlsjsh3667 [place] [address]Dr. Airam Tripathi PLT 202 103/ul Normal 150-450 [facility] Comment on above: Performed By: #### C BC ####[facility] Kzeuqktjxc8451 [place] [phone]. Airam Tripathi RBC 2.62 106/ul Critically low 4.20-5.40 [facility] Comment on above: Performed By: #### C BC ####[facility] Ixrmbqdqvs7810 [place] [address]Dr. Airam Tripathi WBC 6.6 103/ul Normal 4.0-11.0 [facility] Comment on above: Performed By: #### C BC ####[facility] Mbawktzqhg0325 [place] [address]Dr. Airam Tripathi OSMOLALITYon 06-15-2022 Osmolality [Osmolality] 269 mosm/kg Critically low 275-295 [facility] Comment on above: Performed By: #### O SMO ####[facility] Bcwwvmghgl[address] [place], [place] [address]Dr. Selenaneil Tripathi PROF 14(COMP METB)on 022 Albumin [Mass/Vol] 2.5 g/dL Critically low 3.4-5.0 [facility] Comment on above: Performed By: #### C MP, BNP ####[facility] Ucgipzioml1820[address] [place], [place] [address]Dr. Airam Deuce Albumin/Globulin [Mass ratio] 0.9 {ratio} Normal [facility] Comment on above: Performed By: #### C MP, BNP ####[facility] Kcsrxoajfv7271 [place] [address]Dr. Airam Deuce ALP [Catalytic activity/Vol] 128 U/L Critically high 46-116 [facility] Comment on above: Performed By: #### C MP, BNP ####[facility] Udozvoeocz9204 [place] [address]Dr. Airam Tripathi ALT [Catalytic activity/Vol] 14 U/L Normal 14-59 [facility] Comment on above: Performed By: #### C MP, BNP ####[facility] Dtcwrjjeax5780 [place] [address]Dr. Airam Tripathi Anion gap [Moles/Vol] 10.4 mmol/L Normal [facility] Comment on above: Performed By: #### C MP, BNP ####[facility] Vjursigjiw5387 [place] [address]Dr. Airam Tripathi AST [Catalytic activity/Vol] 23 U/L Normal 15-37 [facility] Comment on above: Performed By: #### C MP, BNP ####[facility] Fhqhbagroj1409 [place] [address]Dr. Airam Tripathi Bilirubin [Mass/Vol] 0.2 mg/dL Normal 0.2-1.0 [facility] Comment on above: Performed By: #### C MP, BNP ####[facility] Ysqsyprcmm305[address] [place], [place] [address]Dr. Airam Tripathi Calcium [Mass/Vol] 7.4 mg/dL Critically low 8.5-10.1 [facility] Comment on above: Performed By: #### C MP, BNP ####[facility] Rvbmhxkyqt4[address] [place], [place] [address]Dr. Airam Tripathi Chloride [Moles/Vol] 99 mmol/L Normal 98-107 [facility] Comment on above: Performed By: #### C MP, BNP ####[facility] Bmkfkmmgfo95[address] [place], [place] [address]Dr. Airam Tripathi CO2 [Moles/Vol] 24.1 mmol/L Normal 21.0-32.0 [facility] Comment on above: Performed By: #### C MP, BNP ####[facility] Tdgxhsewjd2537[address] [place], [place] [address]Dr. Airam Tripathi Creatinine [Mass/Vol] 1.45 mg/dL Critically high 0.55-1.02 [facility] Comment on above: Performed By: #### C MP, BNP ####[facility] Mesaqojfhu8612[address] [place], [place] [address]Dr. Airam Tripathi EGFR-AF SLOVENIAN 45 mL/min/1.73m2 Critically low >=60 [facility] Comment on above: Performed By: #### C MP, BNP ####[facility] Gryvhmcbkr7106 [place] [address]Dr. Airam Tripathi EGFR-NON AF SLOVENIAN 37 mL/min/1.73m2 Critically low >=60 [facility] Comment on above: Performed By: #### C MP, BNP ####[facility] Pwmxqvnjlj3698[address] [place], [place] [address]Dr. Airam Tripathi Globulin (S) [Mass/Vol] 2.8 g/dL Normal [facility] Comment on above: Performed By: #### C MP, BNP ####[facility] Yoildptggp209[address] [place], [place] [address]Dr. Airam Tripathi Glucose [Mass/Vol] 82 mg/dL Normal 74-106 [facility] Comment on above: Performed By: #### C MP, BNP ####[facility] Fefydojjsp6526[address] [place], [place] [address]Dr. Selenaneil Tripathi Potassium [Moles/Vol] 4.5 mmol/L Normal 3.5-5.1 [facility] Comment on above: Performed By: #### C MP, BNP ####[facility] Lmmztefqyq[address] [place], [place] [address]Dr. Airam Tripathi Protein [Mass/Vol] 5.3 g/dL Critically low 6.4-8.2 [facility] Comment on above: Performed By: #### C MP, BNP ####[facility] Mnuoflpydt656[address] [place], [place] [address]Dr. Airam Tripathi Sodium [Moles/Vol] 129 mmol/L Critically low 136-145 [facility] Comment on above: Performed By: #### C MP, BNP ####[facility] Yjvkennqzw9[address] [place], [place] [address]Dr. Airam Tripathi Urea nitrogen [Mass/Vol] 35.0 mg/dL Critically high 7.0-18.0 [facility] Comment on above: Performed By: #### C MP, BNP ####[facility] Vazbxbnydo3[address] [place], [place] [address]Dr. Airam Tripathi Urea nitrogen/Creatinine [Mass ratio] 24.1 mg/mg Normal [facility] Comment on above: Performed By: #### C MP, BNP ####[facility] Xrlrkhtdtl4155 [place] [address]Dr. Airam Tripathi T3, TOTAL (TRIIODOTHYRONINE) on 06-15-2022 T3, TOTAL 113 ng/dL Normal 71-180 [facility] Comment on above: Performed By: #### T 3TOTAL ####[facility] Pocajotwow5437 [place] [address]Dr. Airam Tripathi BNPon 06-14-2022 Natriuretic peptide B (Bld) [Mass/Vol] 1024.0 pg/mL Critically high <=900.0 [facility] Comment on above: Performed By: #### B INSTRUMENT MAKER AND REPAIRER, CMP ####[facility] Igdsgubcuj8548 [place] [address]Dr. Airam Tripathi CARDIAC CONSUELO 3-6on 2 CK [Catalytic activity/Vol] 116 U/L Normal 26-192 [facility] Comment on above: Performed By: #### C MREP ####[facility] Xqxuujlfij4870[address] [place], [place] [address]Dr. Airam Tripathi CK.MB [Mass/Vol] ng/mL Normal <=3.60 [facility] Comment on above: Performed By: #### C MREP ####[facility] Kppmjthskl98[address] [place], [place] [address]Dr. Airam Tripathi HSTROP 6.0 pg/mL Normal 4.0-51.3 [facility] Comment on above: Result Comment: CUT- OFF POINTS HAVE BEEN ESTABLISHED BASED ON THE FOURTH UNIVERSAL DEFINITIONS OF MYOCARDIALINFARCTION. THE UPPER REFERENCE LIMIT (URL) OF TROPONIN, DEFINED THE 99TH PERCENTILE OFcTnI DISTRIBUTION IN A REFERENCE POPULATION, HAS BEEN CONFIRMED THE DECISION THRESHOLDFOR GA DIAGNOSIS. Performed By: #### C MREP ####[facility] Ftfpgvemwn1939[address] [place], [place] [address]Dr. Airam Tripathi CBC AUTO DIFFon 06-14-2022 BASO # 0.0 103/ul Normal 0.0-0.1 [facility] Comment on above: Performed By: #### C BC ####[facility] Lkprvirmgi4258 [place] [id number]. Airam Tripathi Basophils/100 WBC (Bld) 0.3 % Normal 0.2-2.0 [facility] Comment on above: Performed By: #### C BC ####[facility] Hkfdxmkagw3037[address] [place], [place] [address]Dr. Airam Tripathi EO # 0.2 103/ul Normal 0.0-0.7 [facility] Comment on above: Performed By: #### C BC ####[facility] Gawzonziun[address] [place], [place] [address]Dr. Airam Tripathi Eosinophils/100 WBC (Bld) 2.0 % Normal 0.9-7.0 [facility] Comment on above: Performed By: #### C BC ####[facility] Bombtdqpfh958[address] [place], [place] [address]Dr. Airam Tripathi Erythrocyte distribution width (RBC) [Ratio] 12.8 % Normal 11.0-15.0 [facility] Comment on above: Performed By: #### C BC ####[facility] Aikbglkdwq754[address] [place], [place] [address]Dr. Airam Tripathi Hematocrit (Bld) [Volume fraction] 27.4 % Critically low 36.0-48.0 [facility] Comment on above: Performed By: #### C BC ####[facility] Lhvarsiuhg45[address] [place], [place] [address]Dr. Airam Tripathi Hemoglobin (Bld) [Mass/Vol] 8.7 g/dL Critically low 12.0-16.0 [facility] Comment on above: Performed By: #### C BC ####[facility] Lpxwtxpxue9425[address] [place], [place] [address]Dr. Airam Tripathi IG # 0.11 10e3/ul Critically high 0.00-0.03 [facility] Comment on above: Performed By: #### C BC ####[facility] Wprtkatuzf16[address] [place], [place] [address]Dr. Airam Tripathi IG % 1.1 % Critically high 0.0-0.5 [facility] Comment on above: Performed By: #### C BC ####[facility] Pxobddlbkv0026 [place] [address]DrKianna Tripathi LYMPH # 0.9 103/ul Critically low 1.2-3.8 [facility] Comment on above: Performed By: #### C BC ####[facility] Ajdhcnnghd3528 [place] [address]Dr. Airam Tripathi Lymphocytes/100 WBC (Bld) 9.7 % Critically low 20.5-60.0 [facility] Comment on above: Performed By: #### C BC ####[facility] Nztewlhkva4498 [place] [address]DrKianna Tripathi MANUAL DIFF REQ NO Normal [facility] Comment on above: Performed By: #### C BC ####[facility] Gsqjyzpewp26[address] [place], [place] [address]DrKianna Tripathi MCH (RBC) [Entitic mass] 30.0 pg Normal 26.7-34.0 [facility] Comment on above: Performed By: #### C BC ####[facility] Nwpemefyqa6[address] [place], [place] [address]Dr. Selenaneil Tripathi MCHC (RBC) [Mass/Vol] 31.8 g/dL Normal 29.9-35.2 [facility] Comment on above: Performed By: #### C BC ####[facility] Kvmiibeylu5[address] [place], [place] [address]DrKianna Tripathi MCV (RBC) [Entitic vol] 94.5 fL Normal 81.0-99.0 [facility] Comment on above: Performed By: #### C BC ####[facility] Znytrfzfvx62[address] [place], [place] [address]DrKianna Tripathi MONO # 0.6 103/ul Normal 0.3-0.8 [facility] Comment on above: Performed By: #### C BC ####[facility] Ueazjfzzov7730 [place] [id number] Tripathi Monocytes/100 WBC (Bld) 5.7 % Normal 1.7-12.0 [facility] Comment on above: Performed By: #### C BC ####[facility] Jxjrdcnpiv1107 [place] [address]Dr. Airam Tripathi NEUT # 7.8 103/ul Critically high 1.4-6.5 [facility] Comment on above: Performed By: #### C BC ####[facility] Qnzdpceqwl5413 [place] [address]DrKianna Airam Tripathi Neutrophils/100 WBC (Bld) 81.2 % Critically high 43.0-75.0 [facility] Comment on above: Performed By: #### C BC ####[facility] Lvruabzvkj8510 [place] [address]DrKianna Airam Tripathi Platelet mean volume (Bld) [Entitic vol] 8.6 fL Critically low 9.5-13.5 [facility] Comment on above: Performed By: #### C BC ####[facility] Koeyletkuj7159[address] [place], [place] [address]Dr. Airam Tripathi PLT 283 103/ul Normal 150-450 [facility] Comment on above: Performed By: #### C BC ####[facility] Mndbugjams5849[address] [place], [place] [address]DrKianna Airam Tripathi RBC 2.90 106/ul Critically low 4.20-5.40 [facility] Comment on above: Performed By: #### C BC ####[facility] Xublttzbjp0937 [place] [address]Dr. Airam Tripathi WBC 9.6 103/ul Normal 4.0-11.0 [facility] Comment on above: Performed By: #### C BC ####[facility] Tafbuurgav7866 [place] [address]DrKianna Airam Deuce OSMOLALITYon 06-14-2022 Osmolality [Osmolality] 273 mosm/kg Critically low 275-295 [facility] Comment on above: Performed By: #### O SMO ####[facility] Zcrzenfjsw0311 [place] [address]DrKianna Tripathi PROF 14(COMP METB)on 022 Albumin [Mass/Vol] 3.2 g/dL Critically low 3.4-5.0 [facility] Comment on above: Performed By: #### B INSTRUMENT MAKER AND REPAIRER, CMP ####[facility] Buvltvzdzc1661 [place] [address]Dr. Airam Tripathi Albumin/Globulin [Mass ratio] 1.0 {ratio} Normal [facility] Comment on above: Performed By: #### B INSTRUMENT MAKER AND REPAIRER, CMP ####[facility] Fakhhdsrba1737 [place] [address]Dr. Airam Tripathi ALP [Catalytic activity/Vol] 154 U/L Critically high 46-116 [facility] Comment on above: Performed By: #### B INSTRUMENT MAKER AND REPAIRER, CMP ####[facility] Gbgaahxctl4[address] [place], [place] [address]Dr. Airam Tripathi ALT [Catalytic activity/Vol] 17 U/L Normal 14-59 [facility] Comment on above: Performed By: #### B INSTRUMENT MAKER AND REPAIRER, CMP ####[facility] Iztmdagetn[address] [place], [place] [address]Dr. Airam Tripathi Anion gap [Moles/Vol] 12.0 mmol/L Normal [facility] Comment on above: Performed By: #### B INSTRUMENT MAKER AND REPAIRER, CMP ####[facility] Rapfuavzxw[address] [place], [place] [address]Dr. Airam Tripathi AST [Catalytic activity/Vol] 25 U/L Normal 15-37 [facility] Comment on above: Performed By: #### B INSTRUMENT MAKER AND REPAIRER, CMP ####[facility] Lqoouhjaid7139 [place] [address]Dr. Airam Tripathi Bilirubin [Mass/Vol] 0.3 mg/dL Normal 0.2-1.0 [facility] Comment on above: Performed By: #### B INSTRUMENT MAKER AND REPAIRER, CMP ####[facility] Ljxopjynrx1059 [place] [address]Dr. Airam Tripathi Calcium [Mass/Vol] 7.6 mg/dL Critically low 8.5-10.1 [facility] Comment on above: Performed By: #### B INSTRUMENT MAKER AND REPAIRER, CMP ####[facility] Evxoqquuyn[address] [place], [place] [address]Dr. Airam Tripathi Chloride [Moles/Vol] 92 mmol/L Critically low 98-107 [facility] Comment on above: Performed By: #### B INSTRUMENT MAKER AND REPAIRER, CMP ####[facility] Xaznbxifre[address] [place], [place] [address]Dr. Airam Tripathi CO2 [Moles/Vol] 25.2 mmol/L Normal 21.0-32.0 [facility] Comment on above: Performed By: #### B INSTRUMENT MAKER AND REPAIRER, CMP ####[facility] Vlyuwvbbrz[address] [place], [place] [address]Dr. Ariam Tripathi Creatinine [Mass/Vol] 1.83 mg/dL Critically high 0.55-1.02 [facility] Comment on above: Performed By: #### B INSTRUMENT MAKER AND REPAIRER, CMP ####[facility] Derobxutml[address] [place], [place] [address]Dr. Airam Tripathi EGFR-AF SLOVENIAN 34 mL/min/1.73m2 Critically low >=60 [facility] Comment on above: Performed By: #### B INSTRUMENT MAKER AND REPAIRER, CMP ####[facility] Fzwvqoucgo[address] [place], [place] [address]Dr. Airam Tripathi EGFR-NON AF SLOVENIAN 28 mL/min/1.73m2 Critically low >=60 [facility] Comment on above: Performed By: #### B INSTRUMENT MAKER AND REPAIRER, CMP ####[facility] Teowzhebxr67[address] [place], [place] [address]Dr. Airam Tripathi Globulin (S) [Mass/Vol] 3.1 g/dL Normal [facility] Comment on above: Performed By: #### B INSTRUMENT MAKER AND REPAIRER, CMP ####[facility] Ttljnhrseq9[address] [place], [place] [address]Dr. Airam Tripathi Glucose [Mass/Vol] 77 mg/dL Normal 74-106 [facility] Comment on above: Performed By: #### B INSTRUMENT MAKER AND REPAIRER, CMP ####[facility] Biumfaeuax32[address] [place], [place] [address]Dr. Airam Tripathi Potassium [Moles/Vol] 4.2 mmol/L Normal 3.5-5.1 [facility] Comment on above: Performed By: #### B INSTRUMENT MAKER AND REPAIRER, CMP ####[facility] Vcpcrwiexp86[address] [place], [place] [address]Dr. Airam Tripathi Protein [Mass/Vol] 6.3 g/dL Critically low 6.4-8.2 Th [facility] Comment on above: Performed By: #### B INSTRUMENT MAKER AND REPAIRER, CMP ####[facility] Dackzhxbuh05[address] [place], [place] [address]Dr. Airam Tripathi Sodium [Moles/Vol] 125 mmol/L Critically low 136-145 Th [facility] Comment on above: Performed By: #### B INSTRUMENT MAKER AND REPAIRER, CMP ####[facility] Vekcgezlet[address] [place], [place] [address]Dr. Airam Tripathi Urea nitrogen [Mass/Vol] 35.0 mg/dL Critically high 7.0-18.0 [facility] Comment on above: Performed By: #### B INSTRUMENT MAKER AND REPAIRER, CMP ####[facility] Weqdrhiodl36[address] [place], [place] [address]Dr. Airam Tripathi Urea nitrogen/Creatinine [Mass ratio] 19.1 mg/mg Normal [facility] Comment on above: Performed By: #### B INSTRUMENT MAKER AND REPAIRER, CMP ####[facility] Yzuncqrjgr[address] [place], [place] [address]Dr. Airam Tripathi UA RANDOM W/MICROSCOPICon BACTERIA TRACE Abnormal NONE SEEN [facility] Comment on above: Performed By: #### U AMIC ####[facility] Afzpsnrijp[address] [place], [place] [address]Dr. Airam Tripathi Bilirubin Ql (U) Negative Normal NEGATIVE [facility] Comment on above: Performed By: #### U AMIC ####[facility] Upwafyidoh27[address] [place], [place] [address]Dr. Airam Tripathi CAST NONE SEEN Normal NONE SEEN [facility] Comment on above: Performed By: #### U AMIC ####[facility] Rsssgggjaq99[address] [place], [place] [address]Dr. Airam Tripathi Clarity (U) CLEAR Normal CLEAR [facility] Comment on above: Performed By: #### U AMIC ####[facility] Ctjosincyd2[address] [place], [place] [address]Dr. Airam Tripathi Color (U) LT. YELLOW Normal YELLOW [facility] Comment on above: Performed By: #### U AMIC ####[facility] Junbrakyys7[address] [place] [address]Dr. Airam Tripathi Crystals LM Nom (Urine sed) NONE SEEN Normal NONE SEEN [facility] Comment on above: Performed By: #### U AMIC ####[facility] Dmcvrxdjcb7900 [place] [address]Dr. Airam Tripathi Epithelial cells LM Ql (Urine sed) FEW Abnormal NONE SEEN /RARE [facility] Comment on above: Performed By: #### U AMIC ####[facility] Iuvxwuqssg1876 [place] [address]Dr. Airam Tripathi Glucose Ql (U) Negative Normal NEGATIVE [facility] Comment on above: Performed By: #### U AMIC ####[facility] Lfizviafxz04[address] [place], [place] [address]Dr. Airam Tripathi Hemoglobin Ql (U) Negative Normal NEGATIVE [facility] Comment on above: Performed By: #### U AMIC ####[facility] Ldzjmbixhw9[address] [place], [place] [address]Dr. Airam Tripathi Ketones Ql (U) Negative Normal NEGATIVE [facility] Comment on above: Performed By: #### U AMIC ####[facility] Cjpqbhbcdl[address] [place], [place] [address]Dr. Airam Tripathi LEUKOCYTES MODERATE Abnormal NEGATIVE [facility] Comment on above: Performed By: #### U AMIC ####[facility] Hcdkaurqnb[address] [place], [place] [address]Dr. Airam Tripathi MUCOUS NONE SEEN Normal NONE SEEN [facility] Comment on above: Performed By: #### U AMIC ####[facility] Ocqtkcyfdi23[address] [place], [place] [address]Dr. Airam Tripathi Nitrite Ql (U) Negative Normal NEGATIVE [facility] Comment on above: Performed By: #### U AMIC ####[facility] Sbbxzmrgek[address] [place], [place] [address]Dr. Airam Tripathi pH (U) 5.5 [pH] Normal 5-9 [facility] Comment on above: Performed By: #### U AMIC ####[facility] Rouqudhazf5231 [place] [address]Dr. Airam Tripathi RBC 0-2 Normal 0-2 [facility] Comment on above: Performed By: #### U AMIC ####[facility] Srogjuyljr8540 [place] [id number]. Airam Tripathi SPEC GRAVITY 1.020 Normal 1.005-<=1.02 5 [facility] Comment on above: Performed By: #### U AMIC ####[facility] Pqnvvtygwy8952 [place] [address]Dr. Airam Tripathi UA PROTEIN Negative Normal NEGATIVE/ TRACE [facility] Comment on above: Performed By: #### U AMIC ####[facility] Tbbwapmgxn3142 [place] [address]Dr. Airam Tripathi Urobilinogen Qn (U) 0.2 {Ligia'U}/dL Normal 0.2 - 1. 0 [facility] Comment on above: Performed By: #### U AMIC ####[facility] Tpxbcyxlpt39[address] [place], [place] [address]Dr. Airam Tripathi WBC 5-10 Abnormal NONE SEEN [facility] Comment on above: Performed By: #### U AMIC ####[facility] Ydckfpdzbe93[address] [place], [place] [address]Dr. Airam Tripathi BNPon 06-13-2022 Natriuretic peptide B (Bld) [Mass/Vol] 1496.0 pg/mL Critically high <=900.0 [facility] Comment on above: Performed By: #### T 4, BNP, MG, TSH, CMADM, CRP, CMP ####[facility] Urkgmzgroe2877 [place] [address]Dr. Airam Tripathi CARDIAC CONSUELO 3-6on 2 CK [Catalytic activity/Vol] 125 U/L Normal 26-192 [facility] Comment on above: Performed By: #### C MREP ####[facility] Vuztiulcxp[address] [place], [place] [address]Dr. Airam Tripathi CK.MB [Mass/Vol] ng/mL Normal <=3.60 [facility] Comment on above: Performed By: #### C MREP ####[facility] Wwjqrcddtu5747 [place] [address]Dr. Airam Tripathi HSTROP 5.8 pg/mL Normal 4.0-51.3 [facility] Comment on above: Result Comment: CUT- OFF POINTS HAVE BEEN ESTABLISHED BASED ON THE FOURTH UNIVERSAL DEFINITIONS OF MYOCARDIALINFARCTION. THE UPPER REFERENCE LIMIT (URL) OF TROPONIN, DEFINED THE 99TH PERCENTILE OFcTnI DISTRIBUTION IN A REFERENCE POPULATION, HAS BEEN CONFIRMED THE DECISION THRESHOLDFOR GA DIAGNOSIS. Performed By: #### C MREP ####[facility] Mqoqnqwbzb6113 [place] [address]Dr. Airam Tripathi CARDIAC CONSUELO ADMITon 022 CK [Catalytic activity/Vol] 121 U/L Normal 26-192 [facility] Comment on above: Performed By: #### T 4, BNP, MG, TSH, CMADM, CRP, CMP ####[facility] Uxbcdsnkye2586 [place] [address]Dr. Airam Deuce CK.MB [Mass/Vol] 3.06 ng/mL Normal <=3.60 [facility] Comment on above: Performed By: #### T 4, BNP, MG, TSH, CMADM, CRP, CMP ####[facility] Lgikmmpzky5326 [place] [address]Dr. Airam Tripathi HSTROP 6.9 pg/mL Normal 4.0-51.3 [facility] Comment on above: Result Comment: CUT- OFF POINTS HAVE BEEN ESTABLISHED BASED ON THE FOURTH UNIVERSAL DEFINITIONS OF MYOCARDIALINFARCTION. THE UPPER REFERENCE LIMIT (URL) OF TROPONIN, DEFINED THE 99TH PERCENTILE OFcTnI DISTRIBUTION IN A REFERENCE POPULATION, HAS BEEN CONFIRMED THE DECISION THRESHOLDFOR GA DIAGNOSIS. Performed By: #### T 4, BNP, MG, TSH, CMADM, CRP, CMP ####[facility] Mtuzsxszou2870 [place] [address]Dr. Airam Tripathi KATHY 124 ng/mL Critically high 9-82 [facility] Comment on above: Performed By: #### T 4, BNP, MG, TSH, CMADM, CRP, CMP ####[facility] Swgnczimxx8595 [place] [id number]. Airam Tripathi CBC AUTO DIFFon 06-13-2022 BASO # 0.0 103/ul Normal 0.0-0.1 [facility] Comment on above: Performed By: #### C BC ####[facility] Dzznffquju4971 [place] [id number]. Selenaneil Tripathi Basophils/100 WBC (Bld) 0.2 % Normal 0.2-2.0 [facility] Comment on above: Performed By: #### C BC ####[facility] Wzgeinqkfn9234 [place] [address]Dr. Airam Tripathi EO # 0.2 103/ul Normal 0.0-0.7 [facility] Comment on above: Performed By: #### C BC ####[facility] Nulrtzoyju0095 [place] [address]Dr. Airam Tripathi Eosinophils/100 WBC (Bld) 1.5 % Normal 0.9-7.0 [facility] Comment on above: Performed By: #### C BC ####[facility] Ubxrpwbctw[address] [place], [place] [address]Dr. Airam Decue Erythrocyte distribution width (RBC) [Ratio] 12.7 % Normal 11.0-15.0 [facility] Comment on above: Performed By: #### C BC ####[facility] Gvcaqafpsu8155 [place] [address]Dr. Selenaneil Tripathi Hematocrit (Bld) [Volume fraction] 30.0 % Critically low 36.0-48.0 [facility] Comment on above: Performed By: #### C BC ####[facility] Btjnilabqc8915 [place] [address]Dr. Airam Tripathi Hemoglobin (Bld) [Mass/Vol] 9.6 g/dL Critically low 12.0-16.0 [facility] Comment on above: Performed By: #### C BC ####[facility] Ycmyndmumy90[address] [place], [place] [address]Dr. Airam Tripathi IG # 0.11 10e3/ul Critically high 0.00-0.03 [facility] Comment on above: Performed By: #### C BC ####[facility] Pvjaeavmix7458 [place] [address]DrKianna Airam Tripathi IG % 1.1 % Critically high 0.0-0.5 [facility] Comment on above: Performed By: #### C BC ####[facility] Ttbadtnwcw6574 [place] [address]DrKianna Airam Deuce LYMPH # 1.5 103/ul Normal 1.2-3.8 [facility] Comment on above: Performed By: #### C BC ####[facility] Twuhafshkq[address] [place], [place] [address]DrKianna Airam Deuce Lymphocytes/100 WBC (Bld) 14.9 % Critically low 20.5-60.0 [facility] Comment on above: Performed By: #### C BC ####[facility] Kgorduorgo[address] [place], [place] [address]DrKianna Airam Deuce MANUAL DIFF REQ NO Normal [facility] Comment on above: Performed By: #### C BC ####[facility] Ahmddovksq[address] [place], [place] [address]DrKianna Airam Tripathi MCH (RBC) [Entitic mass] 30.0 pg Normal 26.7-34.0 [facility] Comment on above: Performed By: #### C BC ####[facility] Ulnblgrhuc[address] [place], [place] [address]DrKianna Airam Tripathi MCHC (RBC) [Mass/Vol] 32.0 g/dL Normal 29.9-35.2 [facility] Comment on above: Performed By: #### C BC ####[facility] Ssxrkoksbj[address] [place], [place] [address]DrKianna Airam Deuce MCV (RBC) [Entitic vol] 93.8 fL Normal 81.0-99.0 [facility] Comment on above: Performed By: #### C BC ####[facility] N[address] [place], [place] [address]DrKianna Selenaneil Tripathi MONO # 0.8 103/ul Normal 0.3-0.8 [facility] Comment on above: Performed By: #### C BC ####[facility] Litvxxlvke7925 [place] [id number]. Airam Tripathi Monocytes/100 WBC (Bld) 7.3 % Normal 1.7-12.0 [facility] Comment on above: Performed By: #### C BC ####[facility] Kljcjbxtll3097 [place] [id number]. Airam Tripathi NEUT # 7.8 103/ul Critically high 1.4-6.5 [facility] Comment on above: Performed By: #### C BC ####[facility] Kkqsdaflqn8191 [place] [address]Dr. Airam Tripathi Neutrophils/100 WBC (Bld) 75.0 % Normal 43.0-75.0 [facility] Comment on above: Performed By: #### C BC ####[facility] Mmbajcuiud2942 [place] [address]Dr. Airam Tripathi Platelet mean volume (Bld) [Entitic vol] 9.1 fL Critically low 9.5-13.5 [facility] Comment on above: Performed By: #### C BC ####[facility] Zzuydgxthg[address] [place], [place] [address]Dr. Airam Tripathi PLT 341 103/ul Normal 150-450 [facility] Comment on above: Performed By: #### C BC ####[facility] Ktjbwrjfuf7092 [place] [address]Dr. Airam Tripathi RBC 3.20 106/ul Critically low 4.20-5.40 [facility] Comment on above: Performed By: #### C BC ####[facility] Xlrsmxkbrz7050 [place] [id number]. Airam Tripathi WBC 10.4 103/ul Normal 4.0-11.0 [facility] Comment on above: Performed By: #### C BC ####[facility] Ndjfibmomy4700 [place] [id number]. Airam Tripathi CRPon 06-13-2022 CRP [Mass/Vol] mg/L Normal <=1.0 [facility] Comment on above: Performed By: #### T 4, BNP, MG, TSH, CMADM, CRP, CMP ####[facility] Tgbpqptyqg8306 [place] [phone]. Airam Deuce CT HEAD WO CONon 06-13-2022 CT HEAD WO CON Normal [facility] Covid-19 PCR ([facility])on 05-26 SARS-CoV-2 (COVID-19) RNA MIKE+probe Ql (Unsp spec) Not detected Normal NOT DETECTED [facility] Comment on above: Result Comment: When diagnostic [...] for this test is supported by the Child Care Giver of Health and Human Service's declaration that [...] be used). Performed By: #### C VDTBH ####[facility] Ilsiujwsoe1198 [place] [phone]. Airam Deuce LACTATE/LACTIC ACIDon 2021 Lactate [Moles/Vol] 0.5 mmol/L Normal 0.4-1.9 [facility] Comment on above: Performed By: #### L ACT ####[facility] G[address]ssw[address] [place], [place] [address]Dr. Selenaneil Tripathi MAGNESIUMon 06-13-2022 Magnesium [Mass/Vol] 1.9 mg/dL Normal 1.8-2.4 [facility] Comment on above: Performed By: #### T 4, BNP, MG, TSH, CMADM, CRP, CMP ####[facility] Igraeelnri3131 [place] [address]Dr. Airam Tripathi PROF 14(COMP METB)on 022 Albumin [Mass/Vol] 3.8 g/dL Normal 3.4-5.0 [facility] Comment on above: Performed By: #### T 4, BNP, MG, TSH, CMADM, CRP, CMP ####[facility] Scndyytwdt6847 [place] [address]Dr. Airam Tripathi Albumin/Globulin [Mass ratio] 1.1 {ratio} Normal [facility] Comment on above: Performed By: #### T 4, BNP, MG, TSH, CMADM, CRP, CMP ####[facility] Hxfhlgwiyg3635 [place] [address]Dr. Airam Tripathi ALP [Catalytic activity/Vol] 161 U/L Critically high 46-116 [facility] Comment on above: Performed By: #### T 4, BNP, MG, TSH, CMADM, CRP, CMP ####[facility] Pfmbmynkav2380 [place] [address]Dr. Airam Tripathi ALT [Catalytic activity/Vol] 21 U/L Normal 14-59 [facility] Comment on above: Performed By: #### T 4, BNP, MG, TSH, CMADM, CRP, CMP ####[facility] Zrweewvfnz4359 [place] [address]Dr. Airam Tripathi Anion gap [Moles/Vol] 12.6 mmol/L Normal [facility] Comment on above: Performed By: #### T 4, BNP, MG, TSH, CMADM, CRP, CMP ####[facility] Ahtmbwxkxs2969 [place] [address]Dr. Aiarm Tripathi AST [Catalytic activity/Vol] 30 U/L Normal 15-37 [facility] Comment on above: Performed By: #### T 4, BNP, MG, TSH, CMADM, CRP, CMP ####[facility] Mxpnrtvoyb6752 [place] [address]Dr. Airam Tripathi Bilirubin [Mass/Vol] 0.3 mg/dL Normal 0.2-1.0 [facility] Comment on above: Performed By: #### T 4, BNP, MG, TSH, CMADM, CRP, CMP ####[facility] Npfkoioddy5836 [place] [address]Dr. Airam Tripathi Calcium [Mass/Vol] 8.8 mg/dL Normal 8.5-10.1 [facility] Comment on above: Performed By: #### T 4, BNP, MG, TSH, CMADM, CRP, CMP ####[facility] Vxlrgmvalu5265 [place] [address]Dr. Airam Tripathi Chloride [Moles/Vol] 91 mmol/L Critically low 98-107 [facility] Comment on above: Performed By: #### T 4, BNP, MG, TSH, CMADM, CRP, CMP ####[facility] Bltazznxde[address] [place], [place] [address]Dr. Airam Tripathi CO2 [Moles/Vol] 26.9 mmol/L Normal 21.0-32.0 [facility] Comment on above: Performed By: #### T 4, BNP, MG, TSH, CMADM, CRP, CMP ####[facility] Avawaoewdw[address] [place], [place] [address]Dr. Airam Tripathi Creatinine [Mass/Vol] 1.83 mg/dL Critically high 0.55-1.02 [facility] Comment on above: Performed By: #### T 4, BNP, MG, TSH, CMADM, CRP, CMP ####[facility] Uigohqjjot99[address] [place], [place] [address]Dr. Airam Tripathi EGFR-AF SLOVENIAN 34 mL/min/1.73m2 Critically low >=60 [facility] Comment on above: Performed By: #### T 4, BNP, MG, TSH, CMADM, CRP, CMP ####[facility] Bmhqrdwqgt8[address] [place], [place] [address]Dr. Airam Tripathi EGFR-NON AF SLOVENIAN 28 mL/min/1.73m2 Critically low >=60 [facility] Comment on above: Performed By: #### T 4, BNP, MG, TSH, CMADM, CRP, CMP ####[facility] Phdbitvuds[address] [place], [place] [address]Dr. Airam Tripathi Globulin (S) [Mass/Vol] 3.5 g/dL Normal [facility] Comment on above: Performed By: #### T 4, BNP, MG, TSH, CMADM, CRP, CMP ####[facility] Taivvwdkeh4210 [place] [address]Dr. Airam Tripathi Glucose [Mass/Vol] 96 mg/dL Normal 74-106 [facility] Comment on above: Performed By: #### T 4, BNP, MG, TSH, CMADM, CRP, CMP ####[facility] Lfobpbfzmd0123 [place] [address]Dr. Airam Tripathi Potassium [Moles/Vol] 4.5 mmol/L Normal 3.5-5.1 [facility] Comment on above: Performed By: #### T 4, BNP, MG, TSH, CMADM, CRP, CMP ####[facility] Csqwnqbgpd4312 [place] [address]Dr. Airam Tripathi Protein [Mass/Vol] 7.3 g/dL Normal 6.4-8.2 [facility] Comment on above: Performed By: #### T 4, BNP, MG, TSH, CMADM, CRP, CMP ####[facility] Vztusqlbtb8210 [place] [address]Dr. Airam Tripathi Sodium [Moles/Vol] 126 mmol/L Critically low 136-145 [facility] Comment on above: Performed By: #### T 4, BNP, MG, TSH, CMADM, CRP, CMP ####[facility] Lkjknswbcn3046 [place] [address]Dr. Airam Tripathi Urea nitrogen [Mass/Vol] 34.0 mg/dL Critically high 7.0-18.0 [facility] Comment on above: Performed By: #### T 4, BNP, MG, TSH, CMADM, CRP, CMP ####[facility] Bnvfxgdxdq5158 [place] [address]Dr. Airam Tripathi Urea nitrogen/Creatinine [Mass ratio] 18.6 mg/mg Normal [facility] Comment on above: Performed By: #### T 4, BNP, MG, TSH, CMADM, CRP, CMP ####[facility] Nxnxqkqfix8920 [place] [phone]. Airam Deuce Albumin [Mass/Vol] 3.4 g/dL Normal 3.4-5.0 [facility] Comment on above: Performed By: #### C MP ####[facility] Hetybvplbn2263 [place] [address]Dr. Selenaneil Deuce Albumin/Globulin [Mass ratio] 1.0 {ratio} Normal [facility] Comment on above: Performed By: #### C MP ####[facility] Plbhjnprtz3272 [place] [address]Dr. Airam Tripathi ALP [Catalytic activity/Vol] 151 U/L Critically high 46-116 [facility] Comment on above: Performed By: #### C MP ####[facility] Fwuprworjb5037 [place] [address]Dr. Airam Tripathi ALT [Catalytic activity/Vol] 20 U/L Normal 14-59 [facility] Comment on above: Performed By: #### C MP ####[facility] Omvewjihqq3631 [place] [address]Dr. Selenaneil Deuce Anion gap [Moles/Vol] 11.7 mmol/L Normal [facility] Comment on above: Performed By: #### C MP ####[facility] Whxcaiizgw[address] [place], [place] [address]Dr. Airam Tripathi AST [Catalytic activity/Vol] 28 U/L Normal 15-37 [facility] Comment on above: Performed By: #### C MP ####[facility] Jkfkuejngp201[address] [place], [place] [address]Dr. Airam Tripathi Bilirubin [Mass/Vol] 0.3 mg/dL Normal 0.2-1.0 [facility] Comment on above: Performed By: #### C MP ####[facility] Vjpfalieao8134 [place] [address]Dr. Airam Tripathi Calcium [Mass/Vol] 8.5 mg/dL Normal 8.5-10.1 [facility] Comment on above: Performed By: #### C MP ####[facility] Mukwfoojdp8167 [place] [phone]. Airam Tripathi Chloride [Moles/Vol] 91 mmol/L Critically low 98-107 [facility] Comment on above: Performed By: #### C MP ####[facility] Gimwqevbhi3781 [place] [phone]. Airam Tripathi CO2 [Moles/Vol] 28.3 mmol/L Normal 21.0-32.0 [facility] Comment on above: Performed By: #### C MP ####[facility] Mewwagtdrg07[address] [place], [place] [address]Dr. Airam Tripathi Creatinine [Mass/Vol] 1.68 mg/dL Critically high 0.55-1.02 [facility] Comment on above: Performed By: #### C MP ####[facility] Xomdltkqby75[address] [place], [place] [address]Dr. Airam Tripathi EGFR-AF SLOVENIAN 38 mL/min/1.73m2 Critically low >=60 [facility] Comment on above: Performed By: #### C MP ####[facility] Hhllxgffwn[address] [place], [place] [address]Dr. Airam Tripathi EGFR-NON AF SLOVENIAN 31 mL/min/1.73m2 Critically low >=60 [facility] Comment on above: Performed By: #### C MP ####[facility] Efjwuccszq7675[address] [place], [place] [address]Dr. Airam Tripathi Globulin (S) [Mass/Vol] 3.5 g/dL Normal [facility] Comment on above: Performed By: #### C MP ####[facility] Mjpltzhlyf1829[address] [place], [place] [address]Dr. Airam Tripathi Glucose [Mass/Vol] 74 mg/dL Normal 74-106 [facility] Comment on above: Performed By: #### C MP ####[facility] Ksasxtqeqn523[address] [place], [place] [address]Dr. Airam Tripathi Potassium [Moles/Vol] 4.0 mmol/L Normal 3.5-5.1 [facility] Comment on above: Performed By: #### C MP ####[facility] Pylhddzvts9134 [place] [address]Dr. Airam Tripathi Protein [Mass/Vol] 6.9 g/dL Normal 6.4-8.2 [facility] Comment on above: Performed By: #### C MP ####[facility] Waqllgzqyr3223 [place] [address]Dr. Airam Tripathi Sodium [Moles/Vol] 127 mmol/L Critically low 136-145 [facility] Comment on above: Performed By: #### C MP ####[facility] Aglnlefgvb06[address] [place], [place] [address]Dr. Airam Tripathi Urea nitrogen [Mass/Vol] 29.0 mg/dL Critically high 7.0-18.0 [facility] Comment on above: Performed By: #### C MP ####[facility] Bwaiuxeyfw05[address] [place], [place] [address]Dr. Airam Tripathi Urea nitrogen/Creatinine [Mass ratio] 17.3 mg/mg Normal [facility] Comment on above: Performed By: #### C MP ####[facility] Ewivxxnnfn5[address] [place], [place] [address]Dr. Airam Tripathi T4on 06-13-2022 T4 [Mass/Vol] 6.80 ug/dL Normal 4.80-13.90 [facility] Comment on above: Performed By: #### T 4, BNP, MG, TSH, CMADM, CRP, CMP ####[facility] Hpeiqpkqmf010[address] [place], [place] [address]Dr. Airam Tripathi TSHon 06-13-2022 TSH 0.101 uIU/mL Critically low 0.358-3.740 [facility] Comment on above: Performed By: #### T 4, BNP, MG, TSH, CMADM, CRP, CMP ####[facility] Kogvcyqzfj2[address] [place], [place] [address]Dr. Airam Tripathi OSMOLALITYon 06-08-2022 Osmolality [Osmolality] 272 mosm/kg Critically low 275-295 [facility] Comment on above: Performed By: #### O SMO ####[facility] Mvpdqxqjgm01[address] [place], [place] [address]Dr. Airam Tripathi CBC AUTO DIFFon 06-06-2022 BASO # 0.0 103/ul Normal 0.0-0.1 [facility] Comment on above: Performed By: #### C BC ####[facility] Qjyqqclqsr8389 [place] [id number]. Airam Tripathi Basophils/100 WBC (Bld) 0.3 % Normal 0.2-2.0 [facility] Comment on above: Performed By: #### C BC ####[facility] [id number] [place] [address]Dr. Airam Tripathi EO # 0.2 103/ul Normal 0.0-0.7 [facility] Comment on above: Performed By: #### C BC ####[facility] [id number] [place], [place] [address]Dr. Airam Tripathi Eosinophils/100 WBC (Bld) 2.5 % Normal 0.9-7.0 [facility] Comment on above: Performed By: #### C BC ####[facility] [id number] [place], [place] [address]Dr. Airam Tripathi Erythrocyte distribution width (RBC) [Ratio] 12.9 % Normal 11.0-15.0 [facility] Comment on above: Performed By: #### C BC ####[facility] Ltbxzyleyh[address] [place], [place] [address]Dr. Airam Tripathi Hematocrit (Bld) [Volume fraction] 29.8 % Critically low 36.0-48.0 [facility] Comment on above: Performed By: #### C BC ####[facility] Ghnpnazzip[address] [place], [place] [address]Dr. Airam Tripathi Hemoglobin (Bld) [Mass/Vol] 9.7 g/dL Critically low 12.0-16.0 [facility] Comment on above: Performed By: #### C BC ####[facility] Dgmzthngek0603 [place] [address]Dr. Airam Tripathi IG # 0.03 10e3/ul Normal 0.00-0.03 [facility] Comment on above: Performed By: #### C BC ####[facility] Vujlsrmlxu5064 [place] [id number]. Airam Tripathi IG % 0.3 % Normal 0.0-0.5 [facility] Comment on above: Performed By: #### C BC ####[facility] Dwhlgwwmro2697 [place] [address]Dr. Airam Deuce LYMPH # 1.3 103/ul Normal 1.2-3.8 [facility] Comment on above: Performed By: #### C BC ####[facility] Vdnfwrerfp2204 [place] [address]Dr. Airam Deuce Lymphocytes/100 WBC (Bld) 14.6 % Critically low 20.5-60.0 [facility] Comment on above: Performed By: #### C BC ####[facility] Nzqkjzmmrh5692 [place] [address]Dr. Selenaneil Tripathi MANUAL DIFF REQ NO Normal [facility] Comment on above: Performed By: #### C BC ####[facility] Wmodzsbkye9949 [place] [address]Dr. Airam Tripathi MCH (RBC) [Entitic mass] 30.6 pg Normal 26.7-34.0 [facility] Comment on above: Performed By: #### C BC ####[facility] Cfmeikbhog35[address] [place], [place] [address]Dr. Airam Tripathi MCHC (RBC) [Mass/Vol] 32.6 g/dL Normal 29.9-35.2 [facility] Comment on above: Performed By: #### C BC ####[facility] Fnvezzovlm0786 [place] [address]Dr. Airam Tripathi MCV (RBC) [Entitic vol] 94.0 fL Normal 81.0-99.0 [facility] Comment on above: Performed By: #### C BC ####[facility] Aypfgamjnq13[address] [place], [place] [address]Dr. Airam Tripathi MONO # 0.5 103/ul Normal 0.3-0.8 [facility] Comment on above: Performed By: #### C BC ####[facility] Xjrohxkcsq2551 [place] [address]Dr. Airam Tripathi Monocytes/100 WBC (Bld) 5.7 % Normal 1.7-12.0 [facility] Comment on above: Performed By: #### C BC ####[facility] Ymjcdvzrej8486 [place] [address]Dr. Airam Tripathi NEUT # 6.9 103/ul Critically high 1.4-6.5 [facility] Comment on above: Performed By: #### C BC ####[facility] Kbjvxnnozq7927 [place] [address]Dr. Airam Tripahti Neutrophils/100 WBC (Bld) 76.6 % Critically high 43.0-75.0 [facility] Comment on above: Performed By: #### C BC ####[facility] Mntavabujj4997 [place] [address]Dr. Airam Tripathi Platelet mean volume (Bld) [Entitic vol] 9.2 fL Critically low 9.5-13.5 [facility] Comment on above: Performed By: #### C BC ####[facility] Qjtblmjqzz7[address] [place], [place] [address]Dr. Airam Tripathi PLT 271 103/ul Normal 150-450 [facility] Comment on above: Performed By: #### C BC ####[facility] Twmhogtaqp3[address] [place], [place] [address]Dr. Airam Tripathi RBC 3.17 106/ul Critically low 4.20-5.40 [facility] Comment on above: Performed By: #### C BC ####[facility] Fyrxxdfwui2534[address] [place], [place] [address]Dr. Airam Tripathi WBC 9.1 103/ul Normal 4.0-11.0 [facility] Comment on above: Performed By: #### C BC ####[facility] Hodaiqcrnr8320[address] [place], [place] [address]Dr. Airam Tripathi PROF 14(COMP METB)on 06-06-2 022 Albumin [Mass/Vol] 3.4 g/dL Normal 3.4-5.0 [facility] Comment on above: Performed By: #### C MP ####[facility] Nykqhuuczw0216 [place] [address]Dr. Airam Tripathi Albumin/Globulin [Mass ratio] 1.0 {ratio} Normal [facility] Comment on above: Performed By: #### C MP ####[facility] Hgdahwwwar2701 [place] [address]Dr. Airam Tripathi ALP [Catalytic activity/Vol] 156 U/L Critically high 46-116 [facility] Comment on above: Performed By: #### C MP ####[facility] Yktscqvgbm98[address] [place], [place] [address]Dr. Airam Deuce ALT [Catalytic activity/Vol] 18 U/L Normal 14-59 [facility] Comment on above: Performed By: #### C MP ####[facility] Cyvpvegjmx7077[address] [place], [place] [address]Dr. Airam Tripathi Anion gap [Moles/Vol] 10.8 mmol/L Normal [facility] Comment on above: Performed By: #### C MP ####[facility] Iagalusnnw4[address] [place], [place] [address]Dr. Airam Deuce AST [Catalytic activity/Vol] 27 U/L Normal 15-37 [facility] Comment on above: Performed By: #### C MP ####[facility] Bmpqkamjlk[address] [place], [place] [address]Dr. Airam Tripathi Bilirubin [Mass/Vol] 0.2 mg/dL Normal 0.2-1.0 [facility] Comment on above: Performed By: #### C MP ####[facility] Euwmpgzbqm56[address] [place], [place] [address]Dr. Airam Tripathi Calcium [Mass/Vol] 8.1 mg/dL Critically low 8.5-10.1 [facility] Comment on above: Performed By: #### C MP ####[facility] Fxfknboetq[address] [place], [place] [address]Dr. Airam Tripathi Chloride [Moles/Vol] 92 mmol/L Critically low 98-107 [facility] Comment on above: Performed By: #### C MP ####[facility] Iseghknayk9[address] [place], [place] [address]Dr. Airam Tripathi CO2 [Moles/Vol] 27.4 mmol/L Normal 21.0-32.0 [facility] Comment on above: Performed By: #### C MP ####[facility] Jzvhslirwa3047 [place] [address]Dr. Airam Tripathi Creatinine [Mass/Vol] 1.57 mg/dL Critically high 0.55-1.02 [facility] Comment on above: Performed By: #### C MP ####[facility] Lxajlxioau6483 [place] [address]Dr. Airam Tripathi EGFR-AF SLOVENIAN 41 mL/min/1.73m2 Critically low >=60 [facility] Comment on above: Performed By: #### C MP ####[facility] Kmnutnafqn4249 [place] [address]Dr. Airam Tripathi EGFR-NON AF SLOVENIAN 34 mL/min/1.73m2 Critically low >=60 [facility] Comment on above: Performed By: #### C MP ####[facility] Npynyztznj46[address] [place], [place] [address]Dr. Airam Tripathi Globulin (S) [Mass/Vol] 3.4 g/dL Normal [facility] Comment on above: Performed By: #### C MP ####[facility] Srlwxwujwd44[address] [place], [place] [address]Dr. Airam Deuce Glucose [Mass/Vol] 82 mg/dL Normal 74-106 [facility] Comment on above: Performed By: #### C MP ####[facility] Oesiycsyoh2364[address] [place], [place] [address]Dr. Airam Tripathi Potassium [Moles/Vol] 4.2 mmol/L Normal 3.5-5.1 [facility] Comment on above: Performed By: #### C MP ####[facility] Meujoqvpgu898[address] [place], [place] [address]Dr. Airam Tripathi Protein [Mass/Vol] 6.8 g/dL Normal 6.4-8.2 [facility] Comment on above: Performed By: #### C MP ####[facility] Vjimsqkpqf7[address] [place], [place] [address]Dr. Airam Tripathi Sodium [Moles/Vol] 126 mmol/L Critically low 136-145 [facility] Comment on above: Performed By: #### C MP ####[facility] Vfgplnbjyz9077[address] [place], [place] [address]Dr. Airam Tripathi Urea nitrogen [Mass/Vol] 35.0 mg/dL Critically high 7.0-18.0 [facility] Comment on above: Performed By: #### C MP ####[facility] Vuuaczyjkp528[address] [place], [place] [address]Dr. Airam Tripathi Urea nitrogen/Creatinine [Mass ratio] 22.3 mg/mg Normal [facility] Comment on above: Performed By: #### C MP ####[facility] Upngoowmbq5[address] [place], [place] [address]Dr. Airam Tripathi OSMOLALITYon 06-02-2022 Osmolality [Osmolality] 276 mosm/kg Normal 275-295 [facility] Comment on above: Performed By: #### O SMO ####[facility] Ikujwiutio78[address] [place], [place] [address]Dr. Airam Tripathi CBC AUTO DIFFon 06-01-2022 BASO # 0.1 103/ul Normal 0.0-0.1 [facility] Comment on above: Performed By: #### C BC ####[facility] Rledgjnslz9[address] [place], [place] [address]Dr. Airam Deuce Basophils/100 WBC (Bld) 0.7 % Normal 0.2-2.0 [facility] Comment on above: Performed By: #### C BC ####[facility] Zvaqtvuvdx1864[address] [place], [place] [address]Dr. Airam Deuce EO # 0.3 103/ul Normal 0.0-0.7 [facility] Comment on above: Performed By: #### C BC ####[facility] Knwgibnpfa9870[address] [place], [place] [address]Dr. Airam Deuce Eosinophils/100 WBC (Bld) 3.3 % Normal 0.9-7.0 [facility] Comment on above: Performed By: #### C BC ####[facility] Egmuttbqpj7824 [place] [address]Dr. Airam Tripathi Erythrocyte distribution width (RBC) [Ratio] 13.2 % Normal 11.0-15.0 [facility] Comment on above: Performed By: #### C BC ####[facility] Rbeuomnpyv1027 [place] [address]Dr. Airam Tripathi Hematocrit (Bld) [Volume fraction] 32.0 % Critically low 36.0-48.0 [facility] Comment on above: Performed By: #### C BC ####[facility] Qitzgxaglc264[address] [place], [place] [address]Dr. Airam Tripathi Hemoglobin (Bld) [Mass/Vol] 10.3 g/dL Critically low 12.0-16.0 [facility] Comment on above: Performed By: #### C BC ####[facility] Jrgttomkxm3[address] [place], [place] [address]Dr. Airam Tripathi IG # 0.05 10e3/ul Critically high 0.00-0.03 [facility] Comment on above: Performed By: #### C BC ####[facility] Gboabppiso1896[address] [place], [place] [address]Dr. Selenaneil Tripathi IG % 0.7 % Critically high 0.0-0.5 [facility] Comment on above: Performed By: #### C BC ####[facility] Jfrmdyxhzj9648[address] [place], [place] [address]Dr. Airam Tripathi LYMPH # 1.7 103/ul Normal 1.2-3.8 [facility] Comment on above: Performed By: #### C BC ####[facility] Bjawfgadvy1298[address] [place], [place] [address]Dr. Airam Tripathi Lymphocytes/100 WBC (Bld) 22.6 % Normal 20.5-60.0 [facility] Comment on above: Performed By: #### C BC ####[facility] Rndhagmqcy[address] [place], [place] [address]Dr. Selenaneil Tripathi MANUAL DIFF REQ NO Normal [facility] Comment on above: Performed By: #### C BC ####[facility] Ohnsyjtvfy8272 [place] [address]Dr. Airam Tripathi MCH (RBC) [Entitic mass] 30.8 pg Normal 26.7-34.0 [facility] Comment on above: Performed By: #### C BC ####[facility] Glewkigjrg0336 [place] [address]Dr. Airam Tripathi MCHC (RBC) [Mass/Vol] 32.2 g/dL Normal 29.9-35.2 [facility] Comment on above: Performed By: #### C BC ####[facility] Fxtwfxzpck[address] [place], [place] [address]Dr. Airam Tripathi MCV (RBC) [Entitic vol] 95.8 fL Normal 81.0-99.0 [facility] Comment on above: Performed By: #### C BC ####[facility] Gqnuqlsjdi6[address] [place], [place] [address]Dr. Airam Deuce MONO # 0.6 103/ul Normal 0.3-0.8 [facility] Comment on above: Performed By: #### C BC ####[facility] Qcszmvdudk8015[address] [place], [place] [address]Dr. Airam Deuce Monocytes/100 WBC (Bld) 8.6 % Normal 1.7-12.0 [facility] Comment on above: Performed By: #### C BC ####[facility] Bqwkfvtvto3554[address] [place], [place] [address]Dr. Airam Tripathi NEUT # 4.8 103/ul Normal 1.4-6.5 [facility] Comment on above: Performed By: #### C BC ####[facility] Cwmaycbuqg30[address] [place], [place] [address]Dr. Airam Deuce Neutrophils/100 WBC (Bld) 64.1 % Normal 43.0-75.0 [facility] Comment on above: Performed By: #### C BC ####[facility] Yfaaobpqkg5067[address] [place], [place] [address]Dr. Airam Deuce Platelet mean volume (Bld) [Entitic vol] 10.0 fL Normal 9.5-13.5 [facility] Comment on above: Performed By: #### C BC ####[facility] Vdfoyvknxo5235 [place] [id number]. Airam Tripathi PLT 322 103/ul Normal 150-450 [facility] Comment on above: Performed By: #### C BC ####[facility] Dorhckkxdc2251 [place] [id number]. Airam Tripathi RBC 3.34 106/ul Critically low 4.20-5.40 [facility] Comment on above: Performed By: #### C BC ####[facility] Uxnxwhtkau2130 [place] [address]Dr. Airam Tripathi WBC 7.5 103/ul Normal 4.0-11.0 [facility] Comment on above: Performed By: #### C BC ####[facility] Vevtmijvyc0566 [place] [address]Dr. Airam Tripathi PROF 14(COMP METB)on 022 Albumin [Mass/Vol] 3.5 g/dL Normal 3.4-5.0 [facility] Comment on above: Performed By: #### C MP ####[facility] Ihrruvbuex6716 [place] [address]Dr. Selenaneil Deuce Albumin/Globulin [Mass ratio] 1.1 {ratio} Normal [facility] Comment on above: Performed By: #### C MP ####[facility] Brdxlwsaku6397 [place] [address]Dr. Airam Tripathi ALP [Catalytic activity/Vol] 167 U/L Critically high 46-116 [facility] Comment on above: Performed By: #### C MP ####[facility] Xzkijbzpce7662 [place] [address]Dr. Airam Tripathi ALT [Catalytic activity/Vol] 24 U/L Normal 14-59 [facility] Comment on above: Performed By: #### C MP ####[facility] Npjhqiloqy4945 [place] [address]Dr. Airam Tripathi Anion gap [Moles/Vol] 14.1 mmol/L Normal [facility] Comment on above: Performed By: #### C MP ####[facility] Lnapcuvwxc4808 [place] [address]Dr. Airam Tripathi AST [Catalytic activity/Vol] 27 U/L Normal 15-37 [facility] Comment on above: Performed By: #### C MP ####[facility] Vgnmwfhxlk0715 [place] [address]Dr. Airam Tripathi Bilirubin [Mass/Vol] 0.3 mg/dL Normal 0.2-1.0 [facility] Comment on above: Performed By: #### C MP ####[facility] Kgkpdeknsf8216[address] [place], [place] [address]Dr. iAram Tripathi Calcium [Mass/Vol] 8.0 mg/dL Critically low 8.5-10.1 [facility] Comment on above: Performed By: #### C MP ####[facility] Kxtlxcgeox[address] [place], [place] [address]Dr. Airam Tripathi Chloride [Moles/Vol] 96 mmol/L Critically low 98-107 [facility] Comment on above: Performed By: #### C MP ####[facility] Ahrkaunzkg4619[address] [place], [place] [address]Dr. Airam Tripathi CO2 [Moles/Vol] 24.6 mmol/L Normal 21.0-32.0 [facility] Comment on above: Performed By: #### C MP ####[facility] Wwsgdcinnk64[address] [place], [place] [address]Dr. Airam Tripathi Creatinine [Mass/Vol] 1.79 mg/dL Critically high 0.55-1.02 [facility] Comment on above: Performed By: #### C MP ####[facility] Opbejokjeq2105[address] [place], [place] [address]Dr. Airam Tripathi EGFR-AF SLOVENIAN 35 mL/min/1.73m2 Critically low >=60 [facility] Comment on above: Performed By: #### C MP ####[facility] Hcyeqdehsk4217[address] [place], [place] [address]Dr. Airam Tripathi EGFR-NON AF SLOVENIAN 29 mL/min/1.73m2 Critically low >=60 [facility] Comment on above: Performed By: #### C MP ####[facility] Mfbifznjjd4890 [place] [id number]. Airam Tripathi Globulin (S) [Mass/Vol] 3.3 g/dL Normal [facility] Comment on above: Performed By: #### C MP ####[facility] Opyvmezzmb0485 [place] [address]Dr. Airam Tripathi Glucose [Mass/Vol] 58 mg/dL Critically low 74-106 [facility] Comment on above: Performed By: #### C MP ####[facility] Viwrfygoxi9010 [place] [address]Dr. Airam Tripathi Potassium [Moles/Vol] 4.7 mmol/L Normal 3.5-5.1 [facility] Comment on above: Performed By: #### C MP ####[facility] Zarkrgdmoq032[address] [place], [place] [address]Dr. Airam Tripathi Protein [Mass/Vol] 6.8 g/dL Normal 6.4-8.2 [facility] Comment on above: Performed By: #### C MP ####[facility] Gpqwselmuc377[address] [place], [place] [address]Dr. Airam Tripathi Sodium [Moles/Vol] 130 mmol/L Critically low 136-145 [facility] Comment on above: Performed By: #### C MP ####[facility] Guovogqpqz8094[address] [place], [place] [address]Dr. Airam Tripathi Urea nitrogen [Mass/Vol] 30.0 mg/dL Critically high 7.0-18.0 [facility] Comment on above: Performed By: #### C MP ####[facility] Xvyrcahxbc1926[address] [place], [place] [address]Dr. Airam Tripathi Urea nitrogen/Creatinine [Mass ratio] 16.8 mg/mg Normal [facility] Comment on above: Performed By: #### C MP ####[facility] Fvdabhboak1275[address] [place], [place] [address]Dr. Airam Tripathi OSMOLALITYon 05-28-2022 Osmolality [Osmolality] 275 mosm/kg Normal 275-295 [facility] Comment on above: Performed By: #### O SMO ####[facility] Zivbmyhuff1656 [place] [id number]. Airam Tripathi CBC AUTO DIFFon 05-26-2022 BASO # 0.0 103/ul Normal 0.0-0.1 [facility] Comment on above: Performed By: #### C BC ####[facility] Fjrkpjjwyy4746[address] [place], [place] [address]Dr. Selenaneil Tripathi Basophils/100 WBC (Bld) 0.4 % Normal 0.2-2.0 [facility] Comment on above: Performed By: #### C BC ####[facility] Ngvhxzucnf7790[address] [place], [place] [address]Dr. Selenaneil Tripathi EO # 0.3 103/ul Normal 0.0-0.7 [facility] Comment on above: Performed By: #### C BC ####[facility] Tfvwuuqttk8046[address] [place], [place] [address]Dr. Airam Tripathi Eosinophils/100 WBC (Bld) 3.2 % Normal 0.9-7.0 [facility] Comment on above: Performed By: #### C BC ####[facility] Sydzvyuqei280[address] [place], [place] [address]Dr. Selenaneil Tripathi Erythrocyte distribution width (RBC) [Ratio] 13.0 % Normal 11.0-15.0 [facility] Comment on above: Performed By: #### C BC ####[facility] Iniyuhyiuv140[address] [place], [place] [address]Dr. Selenaneil Tripathi Hematocrit (Bld) [Volume fraction] 30.4 % Critically low 36.0-48.0 [facility] Comment on above: Performed By: #### C BC ####[facility] Kkcsigcdov08[address] [place], [place] [address]Dr. Airam Tripathi Hemoglobin (Bld) [Mass/Vol] 9.6 g/dL Critically low 12.0-16.0 [facility] Comment on above: Performed By: #### C BC ####[facility] Zhuoefwtsq869[address] [place], [place] [address]Dr. Airam Tripathi IG # 0.06 10e3/ul Critically high 0.00-0.03 [facility] Comment on above: Performed By: #### C BC ####[facility] Rbovrsywzi8226 [place] [id number]. Airam Tripathi IG % 0.7 % Critically high 0.0-0.5 [facility] Comment on above: Performed By: #### C BC ####[facility] Reywwpfbag8718 [place] [id number]. Airam Tripathi LYMPH # 1.9 103/ul Normal 1.2-3.8 [facility] Comment on above: Performed By: #### C BC ####[facility] Bxsbkqxxju3869 [place] [address]Dr. Airam Tripathi Lymphocytes/100 WBC (Bld) 20.6 % Normal 20.5-60.0 [facility] Comment on above: Performed By: #### C BC ####[facility] Wfeccqjcmr0559 [place] [address]Dr. Airam Tripathi MANUAL DIFF REQ NO Normal [facility] Comment on above: Performed By: #### C BC ####[facility] Seqwcewwlh[address] [place], [place] [address]Dr. Airam Tripathi MCH (RBC) [Entitic mass] 30.1 pg Normal 26.7-34.0 [facility] Comment on above: Performed By: #### C BC ####[facility] Xnvkrahjoc[address] [place], [place] [address]Dr. Airam Tripathi MCHC (RBC) [Mass/Vol] 31.6 g/dL Normal 29.9-35.2 [facility] Comment on above: Performed By: #### C BC ####[facility] Rdilmwcala[address] [place], [place] [address]Dr. Airam Tripathi MCV (RBC) [Entitic vol] 95.3 fL Normal 81.0-99.0 [facility] Comment on above: Performed By: #### C BC ####[facility] Fefranpwai[address] [place], [place] [address]Dr. Airam Deuce MONO # 0.6 103/ul Normal 0.3-0.8 [facility] Comment on above: Performed By: #### C BC ####[facility] Uepvpirygp7273 [place] [id number]. Airam Tripathi Monocytes/100 WBC (Bld) 6.9 % Normal 1.7-12.0 [facility] Comment on above: Performed By: #### C BC ####[facility] Acgrhafyoj3801 [place] [id number]. Airam Tripathi NEUT # 6.1 103/ul Normal 1.4-6.5 [facility] Comment on above: Performed By: #### C BC ####[facility] Ydjsdsfsby9702 [place] [id number]. Airam Tripathi Neutrophils/100 WBC (Bld) 68.2 % Normal 43.0-75.0 [facility] Comment on above: Performed By: #### C BC ####[facility] Yvohyzzzvz5553 [place] [address]Dr. Airam Tripathi Platelet mean volume (Bld) [Entitic vol] 9.7 fL Normal 9.5-13.5 [facility] Comment on above: Performed By: #### C BC ####[facility] Ymkggajubn1375 [place] [id number]. Airam Tripathi PLT 317 103/ul Normal 150-450 [facility] Comment on above: Performed By: #### C BC ####[facility] Iaxcxezqek4213 [place] [id number]. Airam Tripathi RBC 3.19 106/ul Critically low 4.20-5.40 [facility] Comment on above: Performed By: #### C BC ####[facility] Gvitlclojl[address] [place], [place] [address]Dr. Airam Tripathi WBC 9.0 103/ul Normal 4.0-11.0 [facility] Comment on above: Performed By: #### C BC ####[facility] Cbhgxeutom8914 [place] [address]Dr. Airam Tripathi PROF 14(COMP METB)on 022 Albumin [Mass/Vol] 3.4 g/dL Normal 3.4-5.0 [facility] Comment on above: Performed By: #### C MP ####[facility] Mtzgpjvkda6474 [place] [id number]. Airam Deuce Albumin/Globulin [Mass ratio] 1.0 {ratio} Normal [facility] Comment on above: Performed By: #### C MP ####[facility] Uuhdmtiyje1180 [place] [id number]. Selenaneil Deuce ALP [Catalytic activity/Vol] 153 U/L Critically high 46-116 [facility] Comment on above: Performed By: #### C MP ####[facility] Wnrgklgkkt7605 [place] [address]Dr. Airam Deuce ALT [Catalytic activity/Vol] 21 U/L Normal 14-59 [facility] Comment on above: Performed By: #### C MP ####[facility] Rdzuofahcy6132 [place] [address]Dr. Airam Tripathi Anion gap [Moles/Vol] 13.6 mmol/L Normal [facility] Comment on above: Performed By: #### C MP ####[facility] Zcgyxupxtr65[address] [place], [place] [address]Dr. Airam Deuce AST [Catalytic activity/Vol] 23 U/L Normal 15-37 [facility] Comment on above: Performed By: #### C MP ####[facility] Mkkupuztpr87[address] [place], [place] [address]Dr. Airam Tripathi Bilirubin [Mass/Vol] 0.2 mg/dL Normal 0.2-1.0 [facility] Comment on above: Performed By: #### C MP ####[facility] Itqhtzvego332[address] [place], [place] [address]Dr. Airam Tripathi Calcium [Mass/Vol] 8.4 mg/dL Critically low 8.5-10.1 [facility] Comment on above: Performed By: #### C MP ####[facility] Tbnhcwhxyb035[address] [place], [place] [address]Dr. Airam Tripathi Chloride [Moles/Vol] 97 mmol/L Critically low 98-107 [facility] Comment on above: Performed By: #### C MP ####[facility] Spktznluvg3682 [place] [id number]. Airam Tripathi CO2 [Moles/Vol] 25.2 mmol/L Normal 21.0-32.0 [facility] Comment on above: Performed By: #### C MP ####[facility] Vuaytcecvj5175 [place] [id number]. Airam Tripathi Creatinine [Mass/Vol] 1.58 mg/dL Critically high 0.55-1.02 [facility] Comment on above: Performed By: #### C MP ####[facility] Prtvxnitce9910 [place] [id number]. Airam Tripathi EGFR-AF SLOVENIAN 40 mL/min/1.73m2 Critically low >=60 [facility] Comment on above: Performed By: #### C MP ####[facility] Rhmfkhaqep60[address] [place], [place] [address]Dr. Airam Tripathi EGFR-NON AF SLOVENIAN 33 mL/min/1.73m2 Critically low >=60 [facility] Comment on above: Performed By: #### C MP ####[facility] Ifgemzihmh0518 [place] [phone]. Airam Tripathi Globulin (S) [Mass/Vol] 3.4 g/dL Normal [facility] Comment on above: Performed By: #### C MP ####[facility] Dxodvefjip0399 [place] [id number]. Airam Tripathi Glucose [Mass/Vol] 74 mg/dL Normal 74-106 [facility] Comment on above: Performed By: #### C MP ####[facility] Fpvovgjcqc[address] [place], [place] [address]Dr. Airam Tripathi Potassium [Moles/Vol] 4.8 mmol/L Normal 3.5-5.1 [facility] Comment on above: Performed By: #### C MP ####[facility] Xyuvldenyc1790 [place] [id number]. Airam Tripathi Protein [Mass/Vol] 6.8 g/dL Normal 6.4-8.2 [facility] Comment on above: Performed By: #### C MP ####[facility] Dmlljogndv5468 [place] [id number]. Airam Tripathi Sodium [Moles/Vol] 131 mmol/L Critically low 136-145 [facility] Comment on above: Performed By: #### C MP ####[facility] Drcadfohfd9639 [place] [phone]. Airam Tripathi Urea nitrogen [Mass/Vol] 31.0 mg/dL Critically high 7.0-18.0 [facility] Comment on above: Performed By: #### C MP ####[facility] Dedwpongdl[address] [place], [place] [address]Dr. Airam Tripathi Urea nitrogen/Creatinine [Mass ratio] 19.6 mg/mg Normal [facility] Comment on above: Performed By: #### C MP ####[facility] Skgkumkign[address] [place], [place] [address]Dr. Airam Tripathi OSMOLALITYon 05-19-2022 Osmolality [Osmolality] 281 mosm/kg Normal 275-295 [facility] Comment on above: Performed By: #### O SMO ####[facility] Otvshnmeae03[address] [place], [place] [address]Dr. Airam Tripathi CBC AUTO DIFFon 05-17-2022 BASO # 0.1 103/ul Normal 0.0-0.1 [facility] Comment on above: Performed By: #### C BC ####[facility] Dcpgmgbgzl45[address] [place] [address]Dr. Airam Tripathi Basophils/100 WBC (Bld) 0.6 % Normal 0.2-2.0 [facility] Comment on above: Performed By: #### C BC ####[facility] Vqrbwpyhft6[address] [place] [address]Dr. Airam Tripathi EO # 0.2 103/ul Normal 0.0-0.7 [facility] Comment on above: Performed By: #### C BC ####[facility] Awqernywdj837[address] [place], [place] [address]Dr. Airam Tripathi Eosinophils/100 WBC (Bld) 1.9 % Normal 0.9-7.0 [facility] Comment on above: Performed By: #### C BC ####[facility] Jvyfkypume62[address] [place], [place] [address]Dr. Airam Tripathi Erythrocyte distribution width (RBC) [Ratio] 12.9 % Normal 11.0-15.0 [facility] Comment on above: Performed By: #### C BC ####[facility] Mxhrgqltqa009[address] [place], [place] [address]Dr. Airam Tripathi Hematocrit (Bld) [Volume fraction] 32.1 % Critically low 36.0-48.0 [facility] Comment on above: Performed By: #### C BC ####[facility] Zkwcdgigze9740[address] [place], [place] [address]Dr. Airam Tripathi Hemoglobin (Bld) [Mass/Vol] 9.9 g/dL Critically low 12.0-16.0 [facility] Comment on above: Performed By: #### C BC ####[facility] Euzhxbuoyn47[address] [place], [place] [address]Dr. Airam Tripathi IG # 0.05 10e3/ul Critically high 0.00-0.03 [facility] Comment on above: Performed By: #### C BC ####[facility] Pjdyirofgs9717[address] [place], [place] [address]Dr. Airam Tripathi IG % 0.6 % Critically high 0.0-0.5 [facility] Comment on above: Performed By: #### C BC ####[facility] Gvmjzwjdim6294[address] [place], [place] [address]Dr. Airam Tripathi LYMPH # 1.3 103/ul Normal 1.2-3.8 [facility] Comment on above: Performed By: #### C BC ####[facility] Zpzgpdkqly795[address] [place], [place] [address]Dr. Airam Tripathi Lymphocytes/100 WBC (Bld) 15.2 % Critically low 20.5-60.0 [facility] Comment on above: Performed By: #### C BC ####[facility] Fwvliwxulc7076[address] [place], [place] [address]Dr. Airam Tripathi MANUAL DIFF REQ NO Normal [facility] Comment on above: Performed By: #### C BC ####[facility] Lsckftrjdq4521 [place] [phone]. Airam Deuce MCH (RBC) [Entitic mass] 30.0 pg Normal 26.7-34.0 [facility] Comment on above: Performed By: #### C BC ####[facility] Fnpqfmxjyu8785 [place] [phone]. Airam Deuce MCHC (RBC) [Mass/Vol] 30.8 g/dL Normal 29.9-35.2 [facility] Comment on above: Performed By: #### C BC ####[facility] Waezzcfssy9119 [place] [address]Dr. Airam Tripathi MCV (RBC) [Entitic vol] 97.3 fL Normal 81.0-99.0 [facility] Comment on above: Performed By: #### C BC ####[facility] Qgcnpnilec8850[address] [place], [place] [address]Dr. Airam Tripathi MONO # 0.5 103/ul Normal 0.3-0.8 [facility] Comment on above: Performed By: #### C BC ####[facility] Lccwswnlff9855[address] [place], [place] [address]Dr. Airam Tripathi Monocytes/100 WBC (Bld) 5.4 % Normal 1.7-12.0 [facility] Comment on above: Performed By: #### C BC ####[facility] Xjpvepopxy12[address] [place], [place] [address]Dr. Airam Tripathi NEUT # 6.5 103/ul Normal 1.4-6.5 [facility] Comment on above: Performed By: #### C BC ####[facility] Cowwstfjra7135[address] [place], [place] [address]Dr. Airam Tripathi Neutrophils/100 WBC (Bld) 76.3 % Critically high 43.0-75.0 [facility] Comment on above: Performed By: #### C BC ####[facility] Rgcaftiyzc1025[address] [place], [place] [address]Dr. Airam Trpiathi Platelet mean volume (Bld) [Entitic vol] 10.1 fL Normal 9.5-13.5 [facility] Comment on above: Performed By: #### C BC ####[facility] Miiwyeycos9[address] [place] [address]Dr. Airam Tripathi PLT 284 103/ul Normal 150-450 [facility] Comment on above: Performed By: #### C BC ####[facility] Dbhfvjkacf7405 [place] [id number]. Airam Tripathi RBC 3.30 106/ul Critically low 4.20-5.40 [facility] Comment on above: Performed By: #### C BC ####[facility] Naypaudwpj8848 [place] [phone]. Airam Tripathi WBC 8.5 103/ul Normal 4.0-11.0 [facility] Comment on above: Performed By: #### C BC ####[facility] Umuyijwxhl7168 [place] [address]Dr. Airam Tripathi PROF 14(COMP METB)on 022 Albumin [Mass/Vol] 3.1 g/dL Critically low 3.4-5.0 [facility] Comment on above: Performed By: #### C MP ####[facility] Ncsiirvcyf104[address] [place], [place] [address]Dr. Airam Tripathi Albumin/Globulin [Mass ratio] 0.9 {ratio} Normal [facility] Comment on above: Performed By: #### C MP ####[facility] Jdjfyrarrm4834 [place] [address]Dr. Airam Tripathi ALP [Catalytic activity/Vol] 162 U/L Critically high 46-116 [facility] Comment on above: Performed By: #### C MP ####[facility] Ajfenpztkh9902 [place] [phone]. Airam Tripathi ALT [Catalytic activity/Vol] 22 U/L Normal 14-59 [facility] Comment on above: Performed By: #### C MP ####[facility] Xyckahtuqb5854 [place] [phone]. Airam Tripathi Anion gap [Moles/Vol] 9.4 mmol/L Normal [facility] Comment on above: Performed By: #### C MP ####[facility] Fgtuszlvsm7884 [place] [address]Dr. Airam Tripathi AST [Catalytic activity/Vol] 26 U/L Normal 15-37 [facility] Comment on above: Performed By: #### C MP ####[facility] Qadcbvtmwg0354 [place] [phone]. Airam Tripathi Bilirubin [Mass/Vol] 0.2 mg/dL Normal 0.2-1.0 [facility] Comment on above: Performed By: #### C MP ####[facility] Yqdgwzdjwh9032[address] [place], [place] [address]Dr. Airam Tripathi Calcium [Mass/Vol] 8.2 mg/dL Critically low 8.5-10.1 [facility] Comment on above: Performed By: #### C MP ####[facility] Weqkrmzmgr5904[address] [place], [place] [address]Dr. Airam Tripathi Chloride [Moles/Vol] 103 mmol/L Normal 98-107 [facility] Comment on above: Performed By: #### C MP ####[facility] Ihaobogjai8878[address] [place], [place] [address]Dr. Airam Tripathi CO2 [Moles/Vol] 24.8 mmol/L Normal 21.0-32.0 [facility] Comment on above: Performed By: #### C MP ####[facility] Qwlpxexdag7336[address] [place], [place] [address]Dr. Airam Tripathi Creatinine [Mass/Vol] 1.19 mg/dL Critically high 0.55-1.02 [facility] Comment on above: Performed By: #### C MP ####[facility] Nlayhelkgo7568[address] [place], [place] [address]Dr. Airam Tripathi EGFR-AF SLOVENIAN 56 mL/min/1.73m2 Critically low >=60 [facility] Comment on above: Performed By: #### C MP ####[facility] Lznzagjrtx195[address] [place], [place] [address]Dr. Airam Deuce EGFR-NON AF SLOVENIAN 46 mL/min/1.73m2 Critically low >=60 [facility] Comment on above: Performed By: #### C MP ####[facility] Elmzowfssr0922 [place] [address]Dr. Airam Tripathi Globulin (S) [Mass/Vol] 3.6 g/dL Normal [facility] Comment on above: Performed By: #### C MP ####[facility] Fawdrrhpqf6220 [place] [address]Dr. Airam Tripathi Glucose [Mass/Vol] 75 mg/dL Normal 74-106 [facility] Comment on above: Performed By: #### C MP ####[facility] Nganwpjoao0536[address] [place], [place] [address]Dr. Airam Tripathi Potassium [Moles/Vol] 5.2 mmol/L Critically high 3.5-5.1 [facility] Comment on above: Performed By: #### C MP ####[facility] Ubuqvyimuk7885[address] [place], [place] [address]Dr. Airam Tripathi Protein [Mass/Vol] 6.7 g/dL Normal 6.4-8.2 [facility] Comment on above: Performed By: #### C MP ####[facility] Exfqddekbl9687[address] [place], [place] [address]Dr. Airam Tripathi Sodium [Moles/Vol] 132 mmol/L Critically low 136-145 [facility] Comment on above: Performed By: #### C MP ####[facility] Rxliadzspa517[address] [place], [place] [address]Dr. Airam Tripathi Urea nitrogen [Mass/Vol] 28.0 mg/dL Critically high 7.0-18.0 [facility] Comment on above: Performed By: #### C MP ####[facility] Rrgteavydy9401[address] [place], [place] [address]Dr. Airam Tripathi Urea nitrogen/Creatinine [Mass ratio] 23.5 mg/mg Normal [facility] Comment on above: Performed By: #### C MP ####[facility] Vftzmynktg247[address] [place], [place] [address]Dr. Airam Deuce OSMOLALITYon 05-16-2022 Osmolality [Osmolality] 281 mosm/kg Normal 275-295 [facility] Comment on above: Performed By: #### O SMO ####[facility] Eolbpkzorx9310 [place] [phone]. Airam Tripathi CBC AUTO DIFFon 05-13-2022 BASO # 0.1 103/ul Normal 0.0-0.1 [facility] Comment on above: Performed By: #### C BC ####[facility] Vtecyovsvi7219 [place] [phone]. Airam Deuce Basophils/100 WBC (Bld) 0.5 % Normal 0.2-2.0 [facility] Comment on above: Performed By: #### C BC ####[facility] Snkfwcvlnl895[address] [place], [place] [address]Dr. Airam Tripathi EO # 0.2 103/ul Normal 0.0-0.7 [facility] Comment on above: Performed By: #### C BC ####[facility] Qcaykvelhi5501[address] [place], [place] [address]Dr. Selenaneil Tripathi Eosinophils/100 WBC (Bld) 2.1 % Normal 0.9-7.0 [facility] Comment on above: Performed By: #### C BC ####[facility] Wugfgfjjsg419[address] [place], [place] [address]Dr. Airam Tripathi Erythrocyte distribution width (RBC) [Ratio] 12.9 % Normal 11.0-15.0 [facility] Comment on above: Performed By: #### C BC ####[facility] Riqsurkifa6348[address] [place], [place] [address]Dr. Airam Tripathi Hematocrit (Bld) [Volume fraction] 31.9 % Critically low 36.0-48.0 [facility] Comment on above: Performed By: #### C BC ####[facility] Vattnzcrar5532[address] [place], [place] [address]Dr. Airam Tripathi Hemoglobin (Bld) [Mass/Vol] 9.7 g/dL Critically low 12.0-16.0 [facility] Comment on above: Performed By: #### C BC ####[facility] Iiiqpzvcew2724[address] [place], [place] [address]Dr. Airam Tripathi IG # 0.06 10e3/ul Critically high 0.00-0.03 [facility] Comment on above: Performed By: #### C BC ####[facility] Iqnkhdhqcc6338 [place] [address]DrKianna Selenaneil Tripathi IG % 0.7 % Critically high 0.0-0.5 [facility] Comment on above: Performed By: #### C BC ####[facility] Kwqjiopnzs4246 [place] [address]DrKianna Airam Deuce LYMPH # 1.9 103/ul Normal 1.2-3.8 [facility] Comment on above: Performed By: #### C BC ####[facility] Btoenjgpfv7766[address] [place], [place] [address]DrKianna Selenaneil Tripathi Lymphocytes/100 WBC (Bld) 21.1 % Normal 20.5-60.0 [facility] Comment on above: Performed By: #### C BC ####[facility] Vnqndavzjf3138[address] [place], [place] [address]DrKianna Selenaneil Tripathi MANUAL DIFF REQ NO Normal [facility] Comment on above: Performed By: #### C BC ####[facility] Ukpkqbskvy5255[address] [place], [place] [address]Dr. Airam Deuce MCH (RBC) [Entitic mass] 29.7 pg Normal 26.7-34.0 [facility] Comment on above: Performed By: #### C BC ####[facility] Xtfwryjzjh243[address] [place], [place] [address]Dr. Airam Deuce MCHC (RBC) [Mass/Vol] 30.4 g/dL Normal 29.9-35.2 [facility] Comment on above: Performed By: #### C BC ####[facility] Yltibgfmwl6349[address] [place], [place] [address]DrKianna Selenaneil Tripathi MCV (RBC) [Entitic vol] 97.6 fL Normal 81.0-99.0 [facility] Comment on above: Performed By: #### C BC ####[facility] Ixvlsdofgf984[address] [place], [place] [address]DrKianna Tripathi MONO # 0.6 103/ul Normal 0.3-0.8 [facility] Comment on above: Performed By: #### C BC ####[facility] Keagocnrcl5263 [place] [id number]. Airam Tripathi Monocytes/100 WBC (Bld) 6.8 % Normal 1.7-12.0 [facility] Comment on above: Performed By: #### C BC ####[facility] Akrggvslff3999 [place] [phone]. Airam Tripathi NEUT # 6.3 103/ul Normal 1.4-6.5 [facility] Comment on above: Performed By: #### C BC ####[facility] Hmuymbjcsc6585 [place] [address]Dr. Airam Tripathi Neutrophils/100 WBC (Bld) 68.8 % Normal 43.0-75.0 [facility] Comment on above: Performed By: #### C BC ####[facility] Sslrlizgre5967 [place] [address]Dr. Airam Tripathi Platelet mean volume (Bld) [Entitic vol] 9.6 fL Normal 9.5-13.5 [facility] Comment on above: Performed By: #### C BC ####[facility] Fmftnxlltu4739 [place] [address]Dr. Airam Tripathi PLT 295 103/ul Normal 150-450 [facility] Comment on above: Performed By: #### C BC ####[facility] Oumiuzwiep4899 [place] [address]Dr. Airam Tripathi RBC 3.27 106/ul Critically low 4.20-5.40 [facility] Comment on above: Performed By: #### C BC ####[facility] Ladzytslaa1286 [place] [id number]. Airam Tripathi WBC 9.1 103/ul Normal 4.0-11.0 [facility] Comment on above: Performed By: #### C BC ####[facility] Xubeajelfz9388 [place] [address]DrKianna Selenaneil Tripathi PROF 14(COMP METB)on 05-13- 022 Albumin [Mass/Vol] 3.3 g/dL Critically low 3.4-5.0 [facility] Comment on above: Performed By: #### C MP ####[facility] Ggayblqaec5695 [place] [address]Dr. Airam Tripathi Albumin/Globulin [Mass ratio] 1.0 {ratio} Normal [facility] Comment on above: Performed By: #### C MP ####[facility] Cptmlzrqnv0350 [place] [address]Dr. Airam Tripathi ALP [Catalytic activity/Vol] 152 U/L Critically high 46-116 [facility] Comment on above: Performed By: #### C MP ####[facility] Wzaokfvwrn8096[address] [place], [place] [address]Dr. Airam Tripathi ALT [Catalytic activity/Vol] 23 U/L Normal 14-59 [facility] Comment on above: Performed By: #### C MP ####[facility] Lymzthkkwt9544[address] [place], [place] [address]Dr. Airam Tripathi Anion gap [Moles/Vol] 12.0 mmol/L Normal [facility] Comment on above: Performed By: #### C MP ####[facility] Nqogcepjbx0045[address] [place], [place] [address]Dr. Airam Tripathi AST [Catalytic activity/Vol] 25 U/L Normal 15-37 [facility] Comment on above: Performed By: #### C MP ####[facility] Uxeqxfuwob01[address] [place], [place] [address]Dr. Airam Tripathi Bilirubin [Mass/Vol] 0.2 mg/dL Normal 0.2-1.0 [facility] Comment on above: Performed By: #### C MP ####[facility] Hfbhletlwa8518[address] [place], [place] [address]Dr. Airam Tripathi Calcium [Mass/Vol] 8.2 mg/dL Critically low 8.5-10.1 [facility] Comment on above: Performed By: #### C MP ####[facility] Pdtkrtfwmk18[address] [place], [place] [address]Dr. Airam Tripathi Chloride [Moles/Vol] 100 mmol/L Normal 98-107 [facility] Comment on above: Performed By: #### C MP ####[facility] Dblhnuavoj8444 [place] [id number]. Airam Tripathi CO2 [Moles/Vol] 24.8 mmol/L Normal 21.0-32.0 [facility] Comment on above: Performed By: #### C MP ####[facility] Jxzwjlrbhf5215 [place] [phone]. Airam Tripathi Creatinine [Mass/Vol] 1.46 mg/dL Critically high 0.55-1.02 [facility] Comment on above: Performed By: #### C MP ####[facility] Inxpfqewrl5357 [place] [phone]. Airam Tripathi EGFR-AF SLOVENIAN 44 mL/min/1.73m2 Critically low >=60 [facility] Comment on above: Performed By: #### C MP ####[facility] Wvjvmnjatp2315 [place] [address]Dr. Airam Tripathi EGFR-NON AF SLOVENIAN 37 mL/min/1.73m2 Critically low >=60 [facility] Comment on above: Performed By: #### C MP ####[facility] Aunmdcfgmm1630 [place] [address]Dr. Airam Tripathi Globulin (S) [Mass/Vol] 3.3 g/dL Normal [facility] Comment on above: Performed By: #### C MP ####[facility] Ndayftfick2315 [place] [address]Dr. Airam Tripathi Glucose [Mass/Vol] 86 mg/dL Normal 74-106 [facility] Comment on above: Performed By: #### C MP ####[facility] Nmhhfhmqcs6613 [place] [phone]. Airam Tripathi Potassium [Moles/Vol] 4.8 mmol/L Normal 3.5-5.1 [facility] Comment on above: Performed By: #### C MP ####[facility] Fonrpbnrjd3347 [place] [address]Dr. Airam Tripathi Protein [Mass/Vol] 6.6 g/dL Normal 6.4-8.2 [facility] Comment on above: Performed By: #### C MP ####[facility] Vfpjhmgeab0984 [place] [address]Dr. Airam Deuce Sodium [Moles/Vol] 132 mmol/L Critically low 136-145 [facility] Comment on above: Performed By: #### C MP ####[facility] Bzvmfwnqae457[address] [place], [place] [address]Dr. Airam Deuce Urea nitrogen [Mass/Vol] 34.0 mg/dL Critically high 7.0-18.0 [facility] Comment on above: Performed By: #### C MP ####[facility] Xuyhxigqvq616[address] [place], [place] [address]Dr. Airam Deuce Urea nitrogen/Creatinine [Mass ratio] 23.3 mg/mg Normal [facility] Comment on above: Performed By: #### C MP ####[facility] Jlbljaoped840[address] [place], [place] [address]Dr. Airam Deuce OSMOLALITYon 05-06-2022 Osmolality [Osmolality] 284 mosm/kg Normal 275-295 [facility] Comment on above: Performed By: #### O SMO ####[facility] Fjvvyvdzfy899[address] [place], [place] [address]Dr. Airam Deuce XR LSPINE MIN 4 VIEWSon XR LSPINE MIN 4 VIEWS Normal [facility] CBC AUTO DIFFon 05-03-2022 BASO # 0.1 103/ul Normal 0.0-0.1 [facility] Comment on above: Performed By: #### C BC ####[facility] Pzbpsthlem6279[address] [place], [place] [address]Dr. Airam Tripathi Basophils/100 WBC (Bld) 0.6 % Normal 0.2-2.0 [facility] Comment on above: Performed By: #### C BC ####[facility] Wttimfiqqs8294[address] [place], [place] [address]Dr. Airam Tripathi EO # 0.3 103/ul Normal 0.0-0.7 [facility] Comment on above: Performed By: #### C BC ####[facility] Otsyyyelzl5[address] [place], [place] [address]Dr. Airam Tripathi Eosinophils/100 WBC (Bld) 4.2 % Normal 0.9-7.0 [facility] Comment on above: Performed By: #### C BC ####[facility] Pfjhqdwbwj3439 [place] [address]Dr. Airam Tripathi Erythrocyte distribution width (RBC) [Ratio] 13.4 % Normal 11.0-15.0 [facility] Comment on above: Performed By: #### C BC ####[facility] Veovqknijk0095[address] [place], [place] [address]Dr. Airam Tripathi Hematocrit (Bld) [Volume fraction] 30.7 % Critically low 36.0-48.0 [facility] Comment on above: Performed By: #### C BC ####[facility] Afbmotrris1164[address] [place], [place] [address]Dr. Airam Tripathi Hemoglobin (Bld) [Mass/Vol] 9.6 g/dL Critically low 12.0-16.0 [facility] Comment on above: Performed By: #### C BC ####[facility] Fgtgpursjd30[address] [place], [place] [address]Dr. Airam Tripathi IG # 0.05 10e3/ul Critically high 0.00-0.03 [facility] Comment on above: Performed By: #### C BC ####[facility] Atrprdvjxy812[address] [place], [place] [address]Dr. Airam Tripathi IG % 0.6 % Critically high 0.0-0.5 [facility] Comment on above: Performed By: #### C BC ####[facility] Pdjftrbyts1026[address] [place], [place] [address]Dr. Airam Tripathi LYMPH # 1.9 103/ul Normal 1.2-3.8 [facility] Comment on above: Performed By: #### C BC ####[facility] Rgtrzzkftg6498[address] [place], [place] [address]Dr. Airam Tripathi Lymphocytes/100 WBC (Bld) 23.5 % Normal 20.5-60.0 [facility] Comment on above: Performed By: #### C BC ####[facility] Kgmxidzwkx4621 [place] [address]Dr. Airam Tripathi MANUAL DIFF REQ NO Normal [facility] Comment on above: Performed By: #### C BC ####[facility] Zccfpsgzgp9953 [place] [address]Dr. Airam Tripathi MCH (RBC) [Entitic mass] 30.8 pg Normal 26.7-34.0 [facility] Comment on above: Performed By: #### C BC ####[facility] Eyzchsvzoa5785 [place] [address]Dr. Airam Tripathi MCHC (RBC) [Mass/Vol] 31.3 g/dL Normal 29.9-35.2 [facility] Comment on above: Performed By: #### C BC ####[facility] Semelzlmlv4512 [place] [address]Dr. Selenaneil Tripathi MCV (RBC) [Entitic vol] 98.4 fL Normal 81.0-99.0 [facility] Comment on above: Performed By: #### C BC ####[facility] Lnyqhvijqi9[address] [place], [place] [address]Dr. Airam Deuce MONO # 0.6 103/ul Normal 0.3-0.8 [facility] Comment on above: Performed By: #### C BC ####[facility] Rbemthokjp5998[address] [place], [place] [address]Dr. Selenaneil Tripathi Monocytes/100 WBC (Bld) 7.4 % Normal 1.7-12.0 [facility] Comment on above: Performed By: #### C BC ####[facility] Cxpimarwpf3420[address] [place], [place] [address]Dr. Selenaneil Deuce NEUT # 5.0 103/ul Normal 1.4-6.5 [facility] Comment on above: Performed By: #### C BC ####[facility] Pvacuullll0840[address] [place], [place] [address]Dr. Airam Tripathi Neutrophils/100 WBC (Bld) 63.7 % Normal 43.0-75.0 [facility] Comment on above: Performed By: #### C BC ####[facility] Uusdavnvaa3754 [place] [address]Dr. Airam Deuce Platelet mean volume (Bld) [Entitic vol] 9.5 fL Normal 9.5-13.5 [facility] Comment on above: Performed By: #### C BC ####[facility] Zshpucowzj2649 [place] [address]Dr. Airam Tripathi PLT 280 103/ul Normal 150-450 [facility] Comment on above: Performed By: #### C BC ####[facility] Fzymcvnvvh2330 [place] [address]Dr. Airam Tripathi RBC 3.12 106/ul Critically low 4.20-5.40 [facility] Comment on above: Performed By: #### C BC ####[facility] Dtjnvmwinc68[address] [place], [place] [address]Dr. Airam Tripathi WBC 7.9 103/ul Normal 4.0-11.0 [facility] Comment on above: Performed By: #### C BC ####[facility] Fwwtliddwz50[address] [place], [place] [address]Dr. Airam Tripathi PROF 14(COMP METB)on 022 Albumin [Mass/Vol] 3.1 g/dL Critically low 3.4-5.0 [facility] Comment on above: Performed By: #### C MP ####[facility] Lqwinojvrx76[address] [place], [place] [address]Dr. Airam Tripathi Albumin/Globulin [Mass ratio] 0.9 {ratio} Normal [facility] Comment on above: Performed By: #### C MP ####[facility] Scyvmexbdf25[address] [place], [place] [address]Dr. Airam Tripathi ALP [Catalytic activity/Vol] 140 U/L Critically high 46-116 [facility] Comment on above: Performed By: #### C MP ####[facility] Jttagepapf5734[address] [place], [place] [address]Dr. Airam Tripathi ALT [Catalytic activity/Vol] 24 U/L Normal 14-59 [facility] Comment on above: Performed By: #### C MP ####[facility] Fneyxptkys8844[address] [place], [place] [address]Dr. Airam Tripathi Anion gap [Moles/Vol] 11.2 mmol/L Normal [facility] Comment on above: Performed By: #### C MP ####[facility] Mmilariqav9049[address] [place], [place] [address]Dr. Airam Tripathi AST [Catalytic activity/Vol] 26 U/L Normal 15-37 [facility] Comment on above: Performed By: #### C MP ####[facility] Counudecnr4876[address] [place], [place] [address]Dr. Airam Tripathi Bilirubin [Mass/Vol] 0.2 mg/dL Normal 0.2-1.0 [facility] Comment on above: Performed By: #### C MP ####[facility] Zzofhzapqp6554[address] [place], [place] [address]Dr. Airam Tripathi Calcium [Mass/Vol] 8.3 mg/dL Critically low 8.5-10.1 [facility] Comment on above: Performed By: #### C MP ####[facility] Hxehtguhuw9870[address] [place], [place] [address]Dr. Airam Tripathi Chloride [Moles/Vol] 101 mmol/L Normal 98-107 [facility] Comment on above: Performed By: #### C MP ####[facility] Ebubedemfz9316[address] [place], [place] [address]Dr. Airam Tripathi CO2 [Moles/Vol] 25.5 mmol/L Normal 21.0-32.0 [facility] Comment on above: Performed By: #### C MP ####[facility] Wtpbmcgzgg0989[address] [place], [place] [address]Dr. Airam Tripathi Creatinine [Mass/Vol] 1.43 mg/dL Critically high 0.55-1.02 [facility] Comment on above: Performed By: #### C MP ####[facility] Jrqkbobbnb9897[address] [place], [place] [address]Dr. Airam Tripathi EGFR-AF SLOVENIAN 45 mL/min/1.73m2 Critically low >=60 [facility] Comment on above: Performed By: #### C MP ####[facility] Ltleqzkmwe5125 [place] [address]Dr. Airam Tripathi EGFR-NON AF SLOVENIAN 37 mL/min/1.73m2 Critically low >=60 [facility] Comment on above: Performed By: #### C MP ####[facility] Dhnddhfxsc5647 [place] [address]Dr. Airam Tripathi Globulin (S) [Mass/Vol] 3.3 g/dL Normal [facility] Comment on above: Performed By: #### C MP ####[facility] Wfcuukpxrc8177[address] [place], [place] [address]Dr. Airam Tripathi Glucose [Mass/Vol] 74 mg/dL Normal 74-106 [facility] Comment on above: Performed By: #### C MP ####[facility] Pvlekhjwik8779[address] [place], [place] [address]Dr. Airam Tripathi Potassium [Moles/Vol] 4.7 mmol/L Normal 3.5-5.1 [facility] Comment on above: Performed By: #### C MP ####[facility] Pkgdtgmmcw4047[address] [place], [place] [address]Dr. Airam Tripathi Protein [Mass/Vol] 6.4 g/dL Normal 6.4-8.2 [facility] Comment on above: Performed By: #### C MP ####[facility] Gmzlqdtvvb8588[address] [place], [place] [address]Dr. Airam Tripathi Sodium [Moles/Vol] 133 mmol/L Critically low 136-145 [facility] Comment on above: Performed By: #### C MP ####[facility] Youvcjnabu0950[address] [place], [place] [address]Dr. Airam Tripathi Urea nitrogen [Mass/Vol] 38.0 mg/dL Critically high 7.0-18.0 [facility] Comment on above: Performed By: #### C MP ####[facility] Bkymclxaxv9958[address] [place], [place] [address]Dr. Airam Tripathi Urea nitrogen/Creatinine [Mass ratio] 26.6 mg/mg Normal [facility] Comment on above: Performed By: #### C MP ####[facility] Trbpxuukku0532[address] [place], [place] [address]Dr. Airam Tripathi OSMOLALITYon 04-29-2022 Osmolality [Osmolality] 292 mosm/kg Normal 275-295 [facility] Comment on above: Performed By: #### O SMO ####[facility] Mmfaaqclch0856 [place] [address]Dr. Airam Tripathi CBC AUTO DIFFon 04-28-2022 BASO # 0.0 103/ul Normal 0.0-0.1 [facility] Comment on above: Performed By: #### C BC ####[facility] Mepqixxedp3995 [place] [address]Dr. Airam Tripathi Basophils/100 WBC (Bld) 0.5 % Normal 0.2-2.0 [facility] Comment on above: Performed By: #### C BC ####[facility] Wgfzffwiss0604 [place] [address]Dr. Airam Tripathi EO # 0.2 103/ul Normal 0.0-0.7 [facility] Comment on above: Performed By: #### C BC ####[facility] Pxgplpvnmu220[address] [place], [place] [address]Dr. Airam Tripathi Eosinophils/100 WBC (Bld) 3.4 % Normal 0.9-7.0 [facility] Comment on above: Performed By: #### C BC ####[facility] Tbcbabnfzj1960 [place] [address]Dr. Airam Tripathi Erythrocyte distribution width (RBC) [Ratio] 13.4 % Normal 11.0-15.0 [facility] Comment on above: Performed By: #### C BC ####[facility] Bwvimscttv1575 [place] [address]Dr. Airam Tripathi Hematocrit (Bld) [Volume fraction] 31.6 % Critically low 36.0-48.0 [facility] Comment on above: Performed By: #### C BC ####[facility] Coolefzusv8274 [place] [address]Dr. Airam Tripathi Hemoglobin (Bld) [Mass/Vol] 9.8 g/dL Critically low 12.0-16.0 [facility] Comment on above: Performed By: #### C BC ####[facility] Ncxewsjdba5807 [place] [id number]. Airam Tripathi IG # 0.02 10e3/ul Normal 0.00-0.03 [facility] Comment on above: Performed By: #### C BC ####[facility] Onrmsahejh2842 [place] [id number]. Airam Tripathi IG % 0.3 % Normal 0.0-0.5 [facility] Comment on above: Performed By: #### C BC ####[facility] Mqrjosdkle7185 [place] [address]Dr. Airam Tripathi LYMPH # 1.3 103/ul Normal 1.2-3.8 [facility] Comment on above: Performed By: #### C BC ####[facility] Titydubisy2286 [place] [address]Dr. Selenaneil Tripathi Lymphocytes/100 WBC (Bld) 21.7 % Normal 20.5-60.0 [facility] Comment on above: Performed By: #### C BC ####[facility] Fqpsxpevbx5041 [place] [address]Dr. Airam Tripathi MANUAL DIFF REQ NO Normal [facility] Comment on above: Performed By: #### C BC ####[facility] Rzmlrxmqkl6064 [place] [address]Dr. Airam Tripathi MCH (RBC) [Entitic mass] 30.7 pg Normal 26.7-34.0 [facility] Comment on above: Performed By: #### C BC ####[facility] Euskrgbcgs756[address] [place], [place] [address]Dr. Airam Tripathi MCHC (RBC) [Mass/Vol] 31.0 g/dL Normal 29.9-35.2 [facility] Comment on above: Performed By: #### C BC ####[facility] Imlcnwltfg5577 [place] [address]Dr. Airam Tripathi MCV (RBC) [Entitic vol] 99.1 fL Critically high 81.0-99.0 [facility] Comment on above: Performed By: #### C BC ####[facility] Icqskvdnqi4656 [place] [id number]. Airam Tripathi MONO # 0.3 103/ul Normal 0.3-0.8 [facility] Comment on above: Performed By: #### C BC ####[facility] Kayizwllsn0773 [place] [id number]. Airam Tripathi Monocytes/100 WBC (Bld) 5.2 % Normal 1.7-12.0 [facility] Comment on above: Performed By: #### C BC ####[facility] Rlwnbkdkhr2086 [place] [phone]. Airam Tripathi NEUT # 4.1 103/ul Normal 1.4-6.5 [facility] Comment on above: Performed By: #### C BC ####[facility] Uomhlyccpx2599 [place] [phone]. Airam Tripathi Neutrophils/100 WBC (Bld) 68.9 % Normal 43.0-75.0 [facility] Comment on above: Performed By: #### C BC ####[facility] Otulhvjowe7438 [place] [phone]. Airam Tripathi Platelet mean volume (Bld) [Entitic vol] 9.8 fL Normal 9.5-13.5 [facility] Comment on above: Performed By: #### C BC ####[facility] Yxndlqyluu0119 [place] [phone]. Airam Tripathi PLT 329 103/ul Normal 150-450 [facility] Comment on above: Performed By: #### C BC ####[facility] Avcuzwnacm7583 [place] [phone]. Airam Tripathi RBC 3.19 106/ul Critically low 4.20-5.40 [facility] Comment on above: Performed By: #### C BC ####[facility] Rjdiueusfn5453 [place] [phone]. Airam Tripathi WBC 5.9 103/ul Normal 4.0-11.0 [facility] Comment on above: Performed By: #### C BC ####[facility] Qjmvplpnmj7459[address] [place], [place] [address]Dr. Airam Tripathi PROF 14(COMP METB)on 022 Albumin [Mass/Vol] 2.9 g/dL Critically low 3.4-5.0 [facility] Comment on above: Performed By: #### C MP ####[facility] Ewkhjutfaq2313[address] [place], [place] [address]Dr. Airam Tripathi Albumin/Globulin [Mass ratio] 0.9 {ratio} Normal [facility] Comment on above: Performed By: #### C MP ####[facility] Idmraqfkju7637[address] [place], [place] [address]Dr. Airam Tripathi ALP [Catalytic activity/Vol] 127 U/L Critically high 46-116 [facility] Comment on above: Performed By: #### C MP ####[facility] Qlvkrehziz1054[address] [place], [place] [address]Dr. Airam Tripathi ALT [Catalytic activity/Vol] 22 U/L Normal 14-59 [facility] Comment on above: Performed By: #### C MP ####[facility] Rpnzqymbkv295[address] [place], [place] [address]Dr. Airam Tripathi Anion gap [Moles/Vol] 6.7 mmol/L Normal [facility] Comment on above: Performed By: #### C MP ####[facility] Vjrmsckcxn4617[address] [place], [place] [address]Dr. Airam rTipathi AST [Catalytic activity/Vol] 24 U/L Normal 15-37 [facility] Comment on above: Performed By: #### C MP ####[facility] Hqlahezsjf245[address] [place], [place] [address]Dr. Airam Tripathi Bilirubin [Mass/Vol] 0.2 mg/dL Normal 0.2-1.0 [facility] Comment on above: Performed By: #### C MP ####[facility] Lkrxsgdtly8686[address] [place], [place] [address]Dr. Airam Tripathi Calcium [Mass/Vol] 8.2 mg/dL Critically low 8.5-10.1 [facility] Comment on above: Performed By: #### C MP ####[facility] Lwqiptokat6624 [place] [phone]. Airam Tripathi Chloride [Moles/Vol] 105 mmol/L Normal 98-107 [facility] Comment on above: Performed By: #### C MP ####[facility] Abfzijixmy1832 [place] [address]Dr. Airam Tripathi CO2 [Moles/Vol] 28.2 mmol/L Normal 21.0-32.0 [facility] Comment on above: Performed By: #### C MP ####[facility] Eikbanxpfv3629 [place] [address]Dr. Airam Tripathi Creatinine [Mass/Vol] 1.22 mg/dL Critically high 0.55-1.02 [facility] Comment on above: Performed By: #### C MP ####[facility] Oyrodsfnoo4955 [place] [address]Dr. Airam Tripathi EGFR-AF SLOVENIAN 54 mL/min/1.73m2 Critically low >=60 [facility] Comment on above: Performed By: #### C MP ####[facility] Cjyrdrsjtj815[address] [place], [place] [address]Dr. Airam Tripathi EGFR-NON AF SLOVENIAN 45 mL/min/1.73m2 Critically low >=60 [facility] Comment on above: Performed By: #### C MP ####[facility] Mpjrtfvlkg2899 [place] [address]Dr. Airam Tripathi Globulin (S) [Mass/Vol] 3.2 g/dL Normal [facility] Comment on above: Performed By: #### C MP ####[facility] Fmunbctwrj9684 [place] [address]Dr. Airam Tripathi Glucose [Mass/Vol] 77 mg/dL Normal 74-106 [facility] Comment on above: Performed By: #### C MP ####[facility] Hqrwoirgji3253 [place] [address]Dr. Airam Tripathi Potassium [Moles/Vol] 4.9 mmol/L Normal 3.5-5.1 [facility] Comment on above: Performed By: #### C MP ####[facility] Hqkdircszt6334[address] [place], [place] [address]Dr. Airam Tripathi Protein [Mass/Vol] 6.1 g/dL Critically low 6.4-8.2 [facility] Comment on above: Performed By: #### C MP ####[facility] Mogfunblwf070922 [address] [place], [place] [address]Dr. Airam Tripathi Sodium [Moles/Vol] 135 mmol/L Critically low 136-145 [facility] Comment on above: Performed By: #### C MP ####[facility] Varmcdqxeo7934[address] [place], [place] [address]Dr. Airam Tripathi Urea nitrogen [Mass/Vol] 30.0 mg/dL Critically high 7.0-18.0 [facility] Comment on above: Performed By: #### C MP ####[facility] Kjseqghimd07112[address] [place], [place] [address]Dr. Airam Tripathi Urea nitrogen/Creatinine [Mass ratio] 24.6 mg/mg Normal [facility] Comment on above: Performed By: #### C MP ####[facility] Phivihfxsi235[address] [place], [place] [address]Dr. Airam Tripathi OSMOLALITYon 04-23-2022 Osmolality [Osmolality] 289 mosm/kg Normal 275-295 [facility] Comment on above: Performed By: #### O SMO ####[facility] Faljtyvlwa5414[address] [place], [place] [address]Dr. Airam Tripathi CBC AUTO DIFFon 04-20-2022 BASO # 0.0 103/ul Normal 0.0-0.1 [facility] Comment on above: Performed By: #### C BC ####[facility] Utlqucfttc8419[address] [place], [place] [address]Dr. Airam Deuce Basophils/100 WBC (Bld) 0.4 % Normal 0.2-2.0 [facility] Comment on above: Performed By: #### C BC ####[facility] Jcynzxwxbf1716[address] [place], [place] [address]Dr. Airam Deuce EO # 0.2 103/ul Normal 0.0-0.7 [facility] Comment on above: Performed By: #### C BC ####[facility] Jvojdkhlal1183 [place] [id number]. Airam Tripathi Eosinophils/100 WBC (Bld) 3.1 % Normal 0.9-7.0 [facility] Comment on above: Performed By: #### C BC ####[facility] Dwsvrjcejb3066 [place] [phone]. Airam Tripathi Erythrocyte distribution width (RBC) [Ratio] 13.8 % Normal 11.0-15.0 [facility] Comment on above: Performed By: #### C BC ####[facility] Salfwslbfp4584 [place] [phone]. Airam Tripathi Hematocrit (Bld) [Volume fraction] 29.5 % Critically low 36.0-48.0 [facility] Comment on above: Performed By: #### C BC ####[facility] Wkrupogldr9845[address] [place], [place] [address]Dr. Airam Tripathi Hemoglobin (Bld) [Mass/Vol] 9.2 g/dL Critically low 12.0-16.0 [facility] Comment on above: Performed By: #### C BC ####[facility] Bouvpgqkap0509[address] [place], [place] [address]Dr. Airam Tripathi IG # 0.02 10e3/ul Normal 0.00-0.03 [facility] Comment on above: Performed By: #### C BC ####[facility] Tgyueghaop3244[address] [place], [place] [address]Dr. Airam Tripathi IG % 0.4 % Normal 0.0-0.5 [facility] Comment on above: Performed By: #### C BC ####[facility] Jfiayecsgh1580[address] [place], [place] [address]Dr. Airam Tripathi LYMPH # 0.8 103/ul Critically low 1.2-3.8 [facility] Comment on above: Performed By: #### C BC ####[facility] Zuzocyrmgn487622 [address] [place], [place] [address]Dr. Airam Tripathi Lymphocytes/100 WBC (Bld) 14.0 % Critically low 20.5-60.0 [facility] Comment on above: Performed By: #### C BC ####[facility] Pdoeijexte3725 [place] [address]Dr. Airam Tripathi MANUAL DIFF REQ NO Normal [facility] Comment on above: Performed By: #### C BC ####[facility] Quzvbsywiv0337 [place] [phone]. Airam Tripathi MCH (RBC) [Entitic mass] 30.4 pg Normal 26.7-34.0 [facility] Comment on above: Performed By: #### C BC ####[facility] Ncreylhzdr488[address] [place], [place] [address]Dr. Airam Tripathi MCHC (RBC) [Mass/Vol] 31.2 g/dL Normal 29.9-35.2 [facility] Comment on above: Performed By: #### C BC ####[facility] Sdvndgqzrx6376[address] [place], [place] [address]Dr. Airam Tripathi MCV (RBC) [Entitic vol] 97.4 fL Normal 81.0-99.0 [facility] Comment on above: Performed By: #### C BC ####[facility] Mhamuecolj5696[address] [place], [place] [address]Dr. Airam Tripathi MONO # 0.3 103/ul Normal 0.3-0.8 [facility] Comment on above: Performed By: #### C BC ####[facility] Dvxtpsthkh1060[address] [place], [place] [address]Dr. Selenaneil Tripathi Monocytes/100 WBC (Bld) 5.6 % Normal 1.7-12.0 [facility] Comment on above: Performed By: #### C BC ####[facility] Ybzyluuvap029[address] [place], [place] [address]Dr. Airam Tripathi NEUT # 4.2 103/ul Normal 1.4-6.5 [facility] Comment on above: Performed By: #### C BC ####[facility] Ertbwbefli039[address] [place], [place] [address]Dr. Airam Tripathi Neutrophils/100 WBC (Bld) 76.5 % Critically high 43.0-75.0 [facility] Comment on above: Performed By: #### C BC ####[facility] Poxktmaxho3053 [place] [address]Dr. Airam Tripathi Platelet mean volume (Bld) [Entitic vol] 9.4 fL Critically low 9.5-13.5 [facility] Comment on above: Performed By: #### C BC ####[facility] Mkqvqgxpqu5248 [place] [address]Dr. Airam Tripathi PLT 250 103/ul Normal 150-450 [facility] Comment on above: Performed By: #### C BC ####[facility] Spxawoxeum8720[address] [place], [place] [address]Dr. Airam Tripathi RBC 3.03 106/ul Critically low 4.20-5.40 [facility] Comment on above: Performed By: #### C BC ####[facility] Tocgphijll3195[address] [place], [place] [address]Dr. Airam Tripathi WBC 5.5 103/ul Normal 4.0-11.0 [facility] Comment on above: Performed By: #### C BC ####[facility] Ecyhpjjdhj4314[address] [place], [place] [address]Dr. Airam Tripathi PROF 14(COMP METB)on 022 Albumin [Mass/Vol] 2.7 g/dL Critically low 3.4-5.0 [facility] Comment on above: Performed By: #### C MP ####[facility] Cjoowoccve803[address] [place], [place] [address]Dr. Airam Tripathi Albumin/Globulin [Mass ratio] 0.9 {ratio} Normal [facility] Comment on above: Performed By: #### C MP ####[facility] Sexiwinjzn2378 [place] [address]Dr. Airam Tripathi ALP [Catalytic activity/Vol] 113 U/L Normal 46-116 [facility] Comment on above: Performed By: #### C MP ####[facility] Dtgotiaywc3926 [place] [address]Dr. Airam Tripathi ALT [Catalytic activity/Vol] 20 U/L Normal 14-59 [facility] Comment on above: Performed By: #### C MP ####[facility] Gsmebwuttv3662 [place] [id number]. Airam Tripathi Anion gap [Moles/Vol] 11.1 mmol/L Normal [facility] Comment on above: Performed By: #### C MP ####[facility] Hjnfmxtjpu6861 [place] [phone]. Airam Tripathi AST [Catalytic activity/Vol] 19 U/L Normal 15-37 [facility] Comment on above: Performed By: #### C MP ####[facility] Tmiikhpxgy7245 [place] [phone]. Airam Tripathi Bilirubin [Mass/Vol] 0.2 mg/dL Normal 0.2-1.0 [facility] Comment on above: Performed By: #### C MP ####[facility] Zsxtbkvgdw5174 [place] [phone]. Airam Tripathi Calcium [Mass/Vol] 8.3 mg/dL Critically low 8.5-10.1 [facility] Comment on above: Performed By: #### C MP ####[facility] Oojjesrbdo5671 [place] [phone]. Airam Tripathi Chloride [Moles/Vol] 104 mmol/L Normal 98-107 [facility] Comment on above: Performed By: #### C MP ####[facility] Wmiwzvrwgd3484 [place] [phone]. Airam Tripathi CO2 [Moles/Vol] 25.3 mmol/L Normal 21.0-32.0 [facility] Comment on above: Performed By: #### C MP ####[facility] Nlevmofvnt2841 [place] [phone]. Airam Tripathi Creatinine [Mass/Vol] 1.33 mg/dL Critically high 0.55-1.02 [facility] Comment on above: Performed By: #### C MP ####[facility] Iugionkyye4649 [place] [phone]. Airam Tripathi EGFR-AF SLOVENIAN 49 mL/min/1.73m2 Critically low >=60 [facility] Comment on above: Performed By: #### C MP ####[facility] Apsksmieim1509 [place] [phone]. Airam Tripathi EGFR-NON AF SLOVENIAN 41 mL/min/1.73m2 Critically low >=60 [facility] Comment on above: Performed By: #### C MP ####[facility] Bgboiqrqng1218 [place] [phone]. Airam Tripathi Globulin (S) [Mass/Vol] 3.1 g/dL Normal [facility] Comment on above: Performed By: #### C MP ####[facility] Yupvwjmxfv4433 [place] [phone]. Airam Tripathi Glucose [Mass/Vol] 88 mg/dL Normal 74-106 [facility] Comment on above: Performed By: #### C MP ####[facility] Opknjmkbvh0980 [place] [phone]. Airam Tripathi Potassium [Moles/Vol] 5.4 mmol/L Critically high 3.5-5.1 [facility] Comment on above: Performed By: #### C MP ####[facility] Bjyrzrkldv8615 [place] [address]Dr. Airam Tripathi Protein [Mass/Vol] 5.8 g/dL Critically low 6.4-8.2 [facility] Comment on above: Performed By: #### C MP ####[facility] Nqrxskfzev7479 [place] [address]Dr. Airam Tripathi Sodium [Moles/Vol] 135 mmol/L Critically low 136-145 [facility] Comment on above: Performed By: #### C MP ####[facility] Xguunocaba8507 [place] [phone]. Airam Tripathi Urea nitrogen [Mass/Vol] 38.0 mg/dL Critically high 7.0-18.0 [facility] Comment on above: Performed By: #### C MP ####[facility] Qnwmvywigq8615 [place] [phone]. Airam Tripathi Urea nitrogen/Creatinine [Mass ratio] 28.6 mg/mg Normal [facility] Comment on above: Performed By: #### C MP ####[facility] Yncchjgipk1471 [place] [phone]. Airam Tripathi OSMOLALITYon 04-15-2022 Osmolality [Osmolality] 284 mosm/kg Normal 275-295 [facility] Comment on above: Performed By: #### O SMO ####[facility] Xmxgpdftzp4677 [place] [address]Dr. Airam Tripathi CBC AUTO DIFFon 04-14-2022 BASO # 0.0 103/ul Normal 0.0-0.1 [facility] Comment on above: Performed By: #### C BC ####[facility] Wrxijxtbjj4[address] [place], [place] [address]Dr. Airam Tripathi Basophils/100 WBC (Bld) 0.5 % Normal 0.2-2.0 [facility] Comment on above: Performed By: #### C BC ####[facility] Xkicqqqwpl895[address] [place], [place] [address]Dr. Airam Tripathi EO # 0.3 103/ul Normal 0.0-0.7 [facility] Comment on above: Performed By: #### C BC ####[facility] Cmxjtdnkvd0[address] [place], [place] [address]Dr. Selenaneil Tripathi Eosinophils/100 WBC (Bld) 3.6 % Normal 0.9-7.0 [facility] Comment on above: Performed By: #### C BC ####[facility] Gghxqnkdqs3[address] [place], [place] [address]Dr. Airam Tripathi Erythrocyte distribution width (RBC) [Ratio] 13.4 % Normal 11.0-15.0 [facility] Comment on above: Performed By: #### C BC ####[facility] Vdzwdnxmkg4266[address] [place], [place] [address]Dr. Airam Tripathi Hematocrit (Bld) [Volume fraction] 30.6 % Critically low 36.0-48.0 [facility] Comment on above: Performed By: #### C BC ####[facility] Ewpvppjyfh6090[address] [place], [place] [address]Dr. Airam Tripathi Hemoglobin (Bld) [Mass/Vol] 9.7 g/dL Critically low 12.0-16.0 [facility] Comment on above: Performed By: #### C BC ####[facility] Onttmfttnx1413 [place] [address]Dr. Airam Deuce IG # 0.08 10e3/ul Critically high 0.00-0.03 [facility] Comment on above: Performed By: #### C BC ####[facility] Umkuwwlszk9767 [place] [address]Dr. Airam Tripathi IG % 0.9 % Critically high 0.0-0.5 [facility] Comment on above: Performed By: #### C BC ####[facility] Nhruesqifk9860 [place] [address]Dr. Airam Tripathi LYMPH # 2.1 103/ul Normal 1.2-3.8 [facility] Comment on above: Performed By: #### C BC ####[facility] Znpcumqbuf8653 [place] [address]Dr. Airam Tripathi Lymphocytes/100 WBC (Bld) 24.2 % Normal 20.5-60.0 [facility] Comment on above: Performed By: #### C BC ####[facility] Alituvuvji12[address] [place], [place] [address]Dr. Airam Tripathi MANUAL DIFF REQ NO Normal [facility] Comment on above: Performed By: #### C BC ####[facility] Rwfwblghzy0728 [place] [address]Dr. Airam Tripathi MCH (RBC) [Entitic mass] 30.4 pg Normal 26.7-34.0 [facility] Comment on above: Performed By: #### C BC ####[facility] Fnkevrnrjm7[address] [place], [place] [address]Dr. Selenaneil Tripathi MCHC (RBC) [Mass/Vol] 31.7 g/dL Normal 29.9-35.2 [facility] Comment on above: Performed By: #### C BC ####[facility] Fccrcjfxty8[address] [place] [address]Dr. Airam Tripathi MCV (RBC) [Entitic vol] 95.9 fL Normal 81.0-99.0 [facility] Comment on above: Performed By: #### C BC ####[facility] Lfqtnghiyk6702 [place] [id number]. Airam Tripathi MONO # 0.5 103/ul Normal 0.3-0.8 [facility] Comment on above: Performed By: #### C BC ####[facility] Iczeknqriq0253 [place] [id number]. Airam Tripathi Monocytes/100 WBC (Bld) 6.0 % Normal 1.7-12.0 [facility] Comment on above: Performed By: #### C BC ####[facility] Mkrzroyody9107 [place] [id number]. Airam Tripathi NEUT # 5.6 103/ul Normal 1.4-6.5 [facility] Comment on above: Performed By: #### C BC ####[facility] Bvbqyfxcan[address] [place], [place] [address]Dr. Airam Tripathi Neutrophils/100 WBC (Bld) 64.8 % Normal 43.0-75.0 [facility] Comment on above: Performed By: #### C BC ####[facility] Tszbzaezql2739 [place] [phone]. Airam Tripathi Platelet mean volume (Bld) [Entitic vol] 9.2 fL Critically low 9.5-13.5 [facility] Comment on above: Performed By: #### C BC ####[facility] Fwlfzsyykm8114 [place] [id number]. Airam Tripathi PLT 296 103/ul Normal 150-450 [facility] Comment on above: Performed By: #### C BC ####[facility] Vcmjewwxbn[address] [place], [place] [address]Dr. Airam Tripathi RBC 3.19 106/ul Critically low 4.20-5.40 [facility] Comment on above: Performed By: #### C BC ####[facility] Yprbhdodfk6[address] [place], [place] [address]Dr. Airam Tripathi WBC 8.6 103/ul Normal 4.0-11.0 [facility] Comment on above: Performed By: #### C BC ####[facility] Hfmyecrenb2534 [place] [address]Dr. Airam Tripathi PROF 14(COMP METB)on 04-14- 022 Albumin [Mass/Vol] 3.2 g/dL Critically low 3.4-5.0 [facility] Comment on above: Performed By: #### C MP ####[facility] Svxechllwj3984 [place] [address]Dr. Airam Tripathi Albumin/Globulin [Mass ratio] 1.0 {ratio} Normal [facility] Comment on above: Performed By: #### C MP ####[facility] Xzqlxoqtxw5355[address] [place], [place] [address]Dr. Airam Tripathi ALP [Catalytic activity/Vol] 126 U/L Critically high 46-116 [facility] Comment on above: Performed By: #### C MP ####[facility] Rapimltthp6309[address] [place], [place] [address]Dr. Airam Tripathi ALT [Catalytic activity/Vol] 27 U/L Normal 14-59 [facility] Comment on above: Performed By: #### C MP ####[facility] Osogvqqzhf7049[address] [place], [place] [address]Dr. Airam Tripathi Anion gap [Moles/Vol] 9.6 mmol/L Normal [facility] Comment on above: Performed By: #### C MP ####[facility] Iietunxsof236[address] [place], [place] [address]Dr. Airam Tripathi AST [Catalytic activity/Vol] 25 U/L Normal 15-37 [facility] Comment on above: Performed By: #### C MP ####[facility] Hecmxfxhur543[address] [place], [place] [address]Dr. Airam Tripathi Bilirubin [Mass/Vol] 0.3 mg/dL Normal 0.2-1.0 [facility] Comment on above: Performed By: #### C MP ####[facility] Ruflmvxozk100[address] [place], [place] [address]Dr. Airam Tripathi Calcium [Mass/Vol] 8.1 mg/dL Critically low 8.5-10.1 [facility] Comment on above: Performed By: #### C MP ####[facility] Cfsbycxknv0874 [place] [address]Dr. Airam Tripathi Chloride [Moles/Vol] 100 mmol/L Normal 98-107 [facility] Comment on above: Performed By: #### C MP ####[facility] Znutuueghk7232 [place] [phone]. Airam Tripathi CO2 [Moles/Vol] 26.5 mmol/L Normal 21.0-32.0 [facility] Comment on above: Performed By: #### C MP ####[facility] Bnlfdniokm4919 [place] [address]Dr. Airam Tripathi Creatinine [Mass/Vol] 1.52 mg/dL Critically high 0.55-1.02 [facility] Comment on above: Performed By: #### C MP ####[facility] Crheajrcdx1947[address] [place], [place] [address]Dr. Airam Tripathi EGFR-AF SLOVENIAN 42 mL/min/1.73m2 Critically low >=60 [facility] Comment on above: Performed By: #### C MP ####[facility] Lfotbmsrrv7138[address] [place], [place] [address]Dr. Airam Tripathi EGFR-NON AF SLOVENIAN 35 mL/min/1.73m2 Critically low >=60 [facility] Comment on above: Performed By: #### C MP ####[facility] Icrcmdhsuh5[address] [place], [place] [address]Dr. Airam Tripathi Globulin (S) [Mass/Vol] 3.3 g/dL Normal [facility] Comment on above: Performed By: #### C MP ####[facility] Pmecmxxxjt1985[address] [place], [place] [address]Dr. Airam Tripathi Glucose [Mass/Vol] 75 mg/dL Normal 74-106 [facility] Comment on above: Performed By: #### C MP ####[facility] Fpheebqcyu450[address] [place], [place] [address]Dr. Airam Deuce Potassium [Moles/Vol] 4.1 mmol/L Normal 3.5-5.1 [facility] Comment on above: Performed By: #### C MP ####[facility] Cwuqfxaiiv8220 [place] [address]Dr. Airam Deuce Protein [Mass/Vol] 6.5 g/dL Normal 6.4-8.2 [facility] Comment on above: Performed By: #### C MP ####[facility] Mzshyxukpg9205 [place] [address]Dr. Airam Tripathi Sodium [Moles/Vol] 132 mmol/L Critically low 136-145 [facility] Comment on above: Performed By: #### C MP ####[facility] Roumjzuarv9717[address] [place], [place] [address]Dr. Airam Tripathi Urea nitrogen [Mass/Vol] 40.0 mg/dL Critically high 7.0-18.0 [facility] Comment on above: Performed By: #### C MP ####[facility] Eotkyiezos9696[address] [place], [place] [address]Dr. Airam Tripathi Urea nitrogen/Creatinine [Mass ratio] 26.3 mg/mg Normal [facility] Comment on above: Performed By: #### C MP ####[facility] Ddlbmjrqff4224[address] [place], [place] [address]Dr. Airam Tripathi OSMOLALITYon 04-10-2022 Osmolality [Osmolality] 280 mosm/kg Normal 275-295 [facility] Comment on above: Performed By: #### O SMO ####[facility] Eubsxrtcsc312[address] [place], [place] [address]Dr. Airam Tripathi PTH INTACTon 04-09-2022 PTH, Intact 89 pg/mL Critically high 15-65 [facility] Comment on above: Performed By: #### P THINT ####[facility] Lrwwsinwdj7015[address] [place], [place] [address]Dr. Airam Tripathi CBC W MANUAL DIFFon 04-08-20 22 ATYPICAL LYMPH # Normal [facility] Comment on above: Performed By: #### C BCMAN ####[facility] Dzadyridqu399[address] [place], [place] [address]Dr. Airam Tripathi ATYPICAL LYMPH % Normal [facility] Comment on above: Performed By: #### C BCMAN ####[facility] Zykngqnznd1330 [place] [phone]. Yilan Tripathi BAND # Normal 0.0-0.3 [facility] Comment on above: Performed By: #### C BCGERALDINE ####[facility] Cglkgwclds8943 [place] [address]Dr. Yilan Tripathi BAND % Normal 0-5 [facility] Comment on above: Performed By: #### C BCGERALDINE ####[facility] Xlrfyhxhdp4816 [place] [address]Dr. Yilan Tripathi BASOM # 0.00 103/ul Normal 0.00-0.10 [facility] Comment on above: Performed By: #### C CHRISTEN ####[facility] Jklhafebwh508[address] [place], [place] [address]Dr. Yilan Tripathi BASOM % 0.0 % Critically low 0.2-2.0 [facility] Comment on above: Performed By: #### C CHRISTEN ####[facility] Owonbscjvc5325[address] [place], [place] [address]Dr. Yilan Tripathi BLAST # Normal [facility] Comment on above: Performed By: #### C CHRISTEN ####[facility] Exrzzzvrzy6[address] [place], [place] [address]Dr. Yilan Tripathi BLAST % Normal [facility] Comment on above: Performed By: #### C CHRISTEN ####[facility] Bqhabrvbbc24[address] [place], [place] [address]Dr. Yilan Tripathi CORRECTED WBC Normal 4.0-11.0 [facility] Comment on above: Performed By: #### C CHRISTEN ####[facility] Offgzzcumn6[address] [place], [place] [address]Dr. Yilan Tripathi EOS # 0.00 103/ul Normal 0.00-0.70 [facility] Comment on above: Performed By: #### C CHRISTEN ####[facility] Ambqiqogud[address] [place], [place] [address]Dr. Yilan Tripathi EOS% 0.0 % Critically low 0.9-7.0 [facility] Comment on above: Performed By: #### C CHRISTEN ####[facility] Xmcfnoasli5267 [place], [place] [address]Xz. Airam Tripathi HCT 29.7 % Critically low 36.0-48.0 [facility] Comment on above: Performed By: #### C CHRISTEN ####[facility] Djtqmhttnu2162 [place], [place] [address]Xj. Airam Tripathi HGB 9.5 g/dl Critically low 12.0-16.0 [facility] Comment on above: Performed By: #### C CHRISTEN ####[facility] Yfacbihqyf5792 [place] [id number]. Airam Tripathi LYMPHM # 0.42 103/ul Critically low 1.20-3.80 [facility] Comment on above: Performed By: #### C CHRISTEN ####[facility] Rtmficolsg7858 [place] [phone]. Airam Tripathi LYMPHM% 7.0 % Critically low 20.5-60.0 [facility] Comment on above: Performed By: #### C CHRISTEN ####[facility] Iygmxzwkol3614 [place] [phone]. Airam Tripathi MCH 30.9 pg Normal 26.7-34.0 [facility] Comment on above: Performed By: #### C CHRISTEN ####[facility] Nbxomwhdlp0054 [place] [phone]. Airam Tripathi MCHC 32.0 g/dl Normal 29.9-35.2 [facility] Comment on above: Performed By: #### C CHRISTEN ####[facility] Fxdovuitcb0469 [place] [phone]. Airam Tripathi MCV 96.7 fL Normal 81.0-99.0 [facility] Comment on above: Performed By: #### C CHRISTEN ####[facility] Putwxqtppz2060 [place] [phone]. Airam Tripathi METAMYELOCYTE # Normal [facility] Comment on above: Performed By: #### C CHRISTEN ####[facility] Xlsrxfspqr5163 [place] [phone]. Airam Tripathi METAMYELOCYTE % Normal [facility] Comment on above: Performed By: #### C CHRISTEN ####[facility] Iqkrugagwm5747 [place] [phone]. Airam Tripathi MONOM# 0.36 103/ul Normal 0.30-0.80 [facility] Comment on above: Performed By: #### C CHRISTEN ####[facility] Gmcopzmqqs9678 [place] [phone]. Airam Tripathi MONOM% 6.0 % Normal 1.7-12.0 [facility] Comment on above: Performed By: #### C CHRISTEN ####[facility] Iuqgcomexy2792 [place] [phone]. Airam Tripathi MPV 9.5 fL Normal 9.5-13.5 [facility] Comment on above: Performed By: #### C CHRISTEN ####[facility] Qbbwratons6850 [place] [phone]. Airam Tripathi MYELOCYTE # Normal [facility] Comment on above: Performed By: #### C CHRISTEN ####[facility] Nqfzxbwcsl0364 [place] [phone]. Airam Tripathi MYELOCYTE % Normal [facility] Comment on above: Performed By: #### C CHRISTEN ####[facility] Njgpjwrbnf9141 [place] [phone]. Airam Tripathi NRBC Normal [facility] Comment on above: Performed By: #### C CHRISTEN ####[facility] Nmktytumdg7309 [place] [phone]. Airam Tripathi PLT 185 103/ul Normal 150-450 [facility] Comment on above: Performed By: #### C CHRISTEN ####[facility] Jphedlaiwm8526 [place] [phone]. Airam Tripathi RBC 3.07 106/ul Critically low 4.20-5.40 [facility] Comment on above: Performed By: #### C CHRISTEN ####[facility] Dpqbrzibfu4054 [place] [phone]. Airam Tripathi RDW 13.6 % Normal 11.0-15.0 [facility] Comment on above: Performed By: #### C BCMAN ####[facility] Erxekzzkto6511 [place] [phone]. Airam Tripathi SEG # 5.22 103/ul Normal 1.40-6.50 [facility] Comment on above: Performed By: #### C BCMAN ####[facility] Ccdetjpkxh2988 [place] [phone]. Airam Tripathi SEG % 87.0 % Critically high 43.0-75.0 [facility] Comment on above: Performed By: #### C BCMAN ####[facility] Dspzfotoqs4231 [place] [phone]. Airam Tripathi WBC 6.0 103/ul Normal 4.0-11.0 [facility] Comment on above: Performed By: #### C CHRISTEN ####[facility] Kmruqbqoap4213 [place] [phone]. Airam Tripathi FREE THYROXINE INDEX T7on FTI 1.57 Normal 1.30-4.50 [facility] Comment on above: Performed By: #### T 7, TSH, CMP ####[facility] Iuhvlhpxji9488 [place] [phone]. Airam Tripathi T3U 32.0 % Normal 30.0-39.0 [facility] Comment on above: Performed By: #### T 7, TSH, CMP ####[facility] Qnlubxurhu4029 [place] [phone]. Airam Tripathi T4 [Mass/Vol] 4.90 ug/dL Normal 4.80-13.90 [facility] Comment on above: Performed By: #### T 7, TSH, CMP ####[facility] Ohoprxymfx9414 [place] [phone]. Airam Tripathi PROF 14(COMP METB)on 022 Albumin [Mass/Vol] 3.0 g/dL Critically low 3.4-5.0 [facility] Comment on above: Performed By: #### T 7, TSH, CMP ####[facility] Jugmxsijca8687 [place] [address]Dr. Airam Tripathi Albumin/Globulin [Mass ratio] 1.0 {ratio} Normal [facility] Comment on above: Performed By: #### T 7, TSH, CMP ####[facility] Xwikoyrrqn2848[address] [place], [place] [address]Dr. Airam Tripathi ALP [Catalytic activity/Vol] 106 U/L Normal 46-116 [facility] Comment on above: Performed By: #### T 7, TSH, CMP ####[facility] Jlakubdpjw1174[address] [place], [place] [address]Dr. Selenaneil Tripathi ALT [Catalytic activity/Vol] 20 U/L Normal 14-59 [facility] Comment on above: Performed By: #### T 7, TSH, CMP ####[facility] Ogmpursshx523[address] [place], [place] [address]Dr. Selenaneil Tripathi Anion gap [Moles/Vol] 10.8 mmol/L Normal [facility] Comment on above: Performed By: #### T 7, TSH, CMP ####[facility] Xetdtxordu6310[address] [place], [place] [address]Dr. Airam Deuce AST [Catalytic activity/Vol] 19 U/L Normal 15-37 [facility] Comment on above: Performed By: #### T 7, TSH, CMP ####[facility] Wsvscjryiv406[address] [place], [place] [address]Dr. Selenaneil Tripathi Bilirubin [Mass/Vol] 0.3 mg/dL Normal 0.2-1.0 [facility] Comment on above: Performed By: #### T 7, TSH, CMP ####[facility] Scfnwhuaei5457[address] [place], [place] [address]Dr. Selenaneil Tripathi Calcium [Mass/Vol] 8.0 mg/dL Critically low 8.5-10.1 [facility] Comment on above: Performed By: #### T 7, TSH, CMP ####[facility] Ekpvssvwjb579[address] [place], [place] [address]Dr. Airam Tripathi Chloride [Moles/Vol] 100 mmol/L Normal 98-107 [facility] Comment on above: Performed By: #### T 7, TSH, CMP ####[facility] Ycfjjklbyt4158 [place] [address]Dr. Airam Tripathi CO2 [Moles/Vol] 24.3 mmol/L Normal 21.0-32.0 [facility] Comment on above: Performed By: #### T 7, TSH, CMP ####[facility] Gbuuagvgyv7521 [place] [address]Dr. Airam Deuce Creatinine [Mass/Vol] 1.12 mg/dL Critically high 0.55-1.02 [facility] Comment on above: Performed By: #### T 7, TSH, CMP ####[facility] Sjpxpccwkk34[address] [place], [place] [address]Dr. Airam Deuce EGFR-AF SLOVENIAN 60 mL/min/1.73m2 Normal >=60 [facility] Comment on above: Performed By: #### T 7, TSH, CMP ####[facility] Mrgcqjefha948[address] [place], [place] [address]Dr. Airam Tripathi EGFR-NON AF SLOVENIAN 50 mL/min/1.73m2 Critically low >=60 [facility] Comment on above: Performed By: #### T 7, TSH, CMP ####[facility] Xbwzhybtkd4715[address] [place], [place] [address]Dr. Selenaneil Tripathi Globulin (S) [Mass/Vol] 3.0 g/dL Normal [facility] Comment on above: Performed By: #### T 7, TSH, CMP ####[facility] Vltgjiinre7244[address] [place], [place] [address]Dr. Airam Tripathi Glucose [Mass/Vol] 76 mg/dL Normal 74-106 [facility] Comment on above: Performed By: #### T 7, TSH, CMP ####[facility] Tmfxvozgxo9557[address] [place], [place] [address]Dr. Airam Tripathi Potassium [Moles/Vol] 4.1 mmol/L Normal 3.5-5.1 [facility] Comment on above: Performed By: #### T 7, TSH, CMP ####[facility] Chyssbwhyz5008[address] [place], [place] [address]Dr. Selenaneil Tripathi Protein [Mass/Vol] 6.0 g/dL Critically low 6.4-8.2 [facility] Comment on above: Performed By: #### T 7, TSH, CMP ####[facility] Ajojdahttv4388[address] [place], [place] [address]Dr. Airam Tripathi Sodium [Moles/Vol] 131 mmol/L Critically low 136-145 [facility] Comment on above: Performed By: #### T 7, TSH, CMP ####[facility] Scewacjbzc6410[address] [place], [place] [address]Dr. Airam Tripathi Urea nitrogen [Mass/Vol] 32.0 mg/dL Critically high 7.0-18.0 [facility] Comment on above: Performed By: #### T 7, TSH, CMP ####[facility] Pjikmikzyy2704[address] [place], [place] [address]Dr. Airam Tripathi Urea nitrogen/Creatinine [Mass ratio] 28.6 mg/mg Normal [facility] Comment on above: Performed By: #### T 7, TSH, CMP ####[facility] Gzucnptuay6340[address] [place], [place] [address]Dr. Airam Tripathi TSHon 04-08-2022 TSH 0.027 uIU/mL Critically low 0.358-3.740 [facility] Comment on above: Performed By: #### T 7, TSH, CMP ####[facility] Nvppqngujr511[address] [place], [place] [address]Dr. Airam Tripathi UA RANDOMon 04-08-2022 Bilirubin Ql (U) Negative Normal NEGATIVE [facility] Comment on above: Performed By: #### U A ####[facility] Oqgbypjabz2557[address] [place], [place] [address]Dr. Airam Tripathi Clarity (U) CLEAR Normal CLEAR [facility] Comment on above: Performed By: #### U A ####[facility] Mjpbqqfriq3678[address] [place], [place] [address]Dr. Airam Tripathi Color (U) LT. YELLOW Normal YELLOW [facility] Comment on above: Performed By: #### U A ####[facility] Gsonqvzfds8826[address] [place], [place] [address]Dr. Airam Tripathi Glucose Ql (U) Negative Normal NEGATIVE [facility] Comment on above: Performed By: #### U A ####[facility] Noctcgbjzc498[address] [place], [place] [address]Dr. Airam Tripathi Hemoglobin Ql (U) Negative Normal NEGATIVE [facility] Comment on above: Performed By: #### U A ####[facility] Fxocqtqvoc4589[address] [place], [place] [address]Dr. Airam Deuce Ketones Ql (U) Negative Normal NEGATIVE [facility] Comment on above: Performed By: #### U A ####[facility] Dbgwvdghhp4112[address] [place], [place] [address]Dr. Airam Tripathi LEUKOCYTES Negative Normal NEGATIVE [facility] Comment on above: Performed By: #### U A ####[facility] Lqnzzoeqco25[address] [place], [place] [address]Dr. Airam Deuce Nitrite Ql (U) Negative Normal NEGATIVE [facility] Comment on above: Performed By: #### U A ####[facility] Gifkjqvorb020[address] [place], [place] [address]Dr. Airam Tripathi pH (U) 6.0 [pH] Normal 5-9 [facility] Comment on above: Performed By: #### U A ####[facility] Btawwfvoyh2825[address] [place], [place] [address]Dr. Airam Deuce SPEC GRAVITY 1.010 Normal 1.005-<=1.02 5 [facility] Comment on above: Performed By: #### U A ####[facility] Bwxubamhqb30[address] [place], [place] [address]Dr. Airam Deuce UA PROTEIN Negative Normal NEGATIVE/ TRACE [facility] Comment on above: Performed By: #### U A ####[facility] Yxcpnbybrw5155[address] [place], [place] [address]Dr. Airam Tripathi Urobilinogen Qn (U) 0.2 {Ligia'U}/dL Normal 0.2 - 1. 0 [facility] Comment on above: Performed By: #### U A ####[facility] Twpmeslrdr1997[address] [place], [place] [address]Dr. Airam Tripathi URINE T PROTEIN CREAT RATIOo n 04-08-2022 UR PROT CREAT RAT 0.32 Normal [facility] Comment on above: Performed By: #### U RTPCR ####[facility] Mdpqnqwkpw1649 [place] [id number]. Airam Tripathi UR TOTAL PROTEIN <6.0 Normal <=12.0 [facility] Comment on above: Performed By: #### U RTPCR ####[facility] Uxkbyehkia2749 [place] [address]Dr. Airam Tripathi URINE CREAT 18.75 mg/dL Critically low 20.00-300.00 [facility] Comment on above: Performed By: #### U RTPCR ####[facility] Bruetdumpp225[address] [place], [place] [address]Dr. Airam Tripathi FERRITINon 04-06-2022 Ferritin [Mass/Vol] 99.0 ng/mL Normal 8.0-252.0 [facility] Comment on above: Performed By: #### F ETIBC, VITAD, FERR ####[facility] Rihghajruu4820 [place] [address]Dr. Airam Tripathi IRON AND TIBCon 04-06-2022 % SATURATION 15.4 % Normal [facility] Comment on above: Performed By: #### F ETIBC, VITAD, FERR ####[facility] Wzntqyydua9128 [place] [address]Dr. Airam Tripathi Iron [Mass/Vol] 43.0 ug/dL Critically low 50.0-170.0 [facility] Comment on above: Performed By: #### F ETIBC, VITAD, FERR ####[facility] Bpttzziokv6039 [place] [address]Dr. Airam Tripathi TIBC DIRECT 280.0 ug/dL Normal 250.0-450.0 [facility] Comment on above: Performed By: #### F ETIBC, VITAD, FERR ####[facility] Cqmnueysmq0473 [place] [address]Dr. Airam Tripathi PROF 14(COMP METB)on 022 Albumin [Mass/Vol] 3.2 g/dL Critically low 3.4-5.0 [facility] Comment on above: Performed By: #### C MP, URIC ####[facility] Hgqnguszmd8181 [place] [address]Dr. Airam Tripathi Albumin/Globulin [Mass ratio] 1.0 {ratio} Normal [facility] Comment on above: Performed By: #### C MP, URIC ####[facility] Skucpjwkkf3172 [place] [address]Dr. Airam Tripathi ALP [Catalytic activity/Vol] 118 U/L Critically high 46-116 [facility] Comment on above: Performed By: #### C MP, URIC ####[facility] Gwttbdxgar2824 [place] [address]Dr. Airam Tripathi ALT [Catalytic activity/Vol] 24 U/L Normal 14-59 [facility] Comment on above: Performed By: #### C MP, URIC ####[facility] Axbanwfseb580[address] [place], [place] [address]Dr. Airam Tripathi Anion gap [Moles/Vol] 14.4 mmol/L Normal [facility] Comment on above: Performed By: #### C MP, URIC ####[facility] Ayepwjxsan2265[address] [place], [place] [address]Dr. Airam Tripathi AST [Catalytic activity/Vol] 21 U/L Normal 15-37 [facility] Comment on above: Performed By: #### C MP, URIC ####[facility] Ckjzxugnih6121 [place] [address]Dr. Airam Tripathi Bilirubin [Mass/Vol] 0.3 mg/dL Normal 0.2-1.0 [facility] Comment on above: Performed By: #### C MP, URIC ####[facility] Jqqprbicqz3912 [place] [address]Dr. Airam Tripathi Calcium [Mass/Vol] 8.0 mg/dL Critically low 8.5-10.1 [facility] Comment on above: Performed By: #### C MP, URIC ####[facility] Magpxozsft[address] [place], [place] [address]Dr. Airam Tripathi Chloride [Moles/Vol] 98 mmol/L Normal 98-107 [facility] Comment on above: Performed By: #### C MP, URIC ####[facility] Efledmeckg4394[address] [place], [place] [address]Dr. Airam Tripathi CO2 [Moles/Vol] 22.0 mmol/L Normal 21.0-32.0 [facility] Comment on above: Performed By: #### C MP, URIC ####[facility] Nkibzgqczc5906[address] [place], [place] [address]Dr. Airam Tripathi Creatinine [Mass/Vol] 1.86 mg/dL Critically high 0.55-1.02 [facility] Comment on above: Performed By: #### C MP, URIC ####[facility] Ejurkpuqtg408[address] [place], [place] [address]Dr. Airam Tripathi EGFR-AF SLOVENIAN 33 mL/min/1.73m2 Critically low >=60 [facility] Comment on above: Performed By: #### C MP, URIC ####[facility] Pyysaxwvnv[address] [place], [place] [address]Dr. Airam Tripathi EGFR-NON AF SLOVENIAN 28 mL/min/1.73m2 Critically low >=60 [facility] Comment on above: Performed By: #### C MP, URIC ####[facility] Rprrjxzlyf097[address] [place], [place] [address]Dr. Airam Tripathi Globulin (S) [Mass/Vol] 3.1 g/dL Normal [facility] Comment on above: Performed By: #### C MP, URIC ####[facility] Ekgeeahboe87[address] [place], [place] [address]Dr. Airam Tripathi Glucose [Mass/Vol] 93 mg/dL Normal 74-106 [facility] Comment on above: Performed By: #### C MP, URIC ####[facility] Jcglwecqqi5166[address] [place], [place] [address]Dr. Airam Tripathi Potassium [Moles/Vol] 4.4 mmol/L Normal 3.5-5.1 [facility] Comment on above: Performed By: #### C MP, URIC ####[facility] Ewmqcsfbwr60[address] [place], [place] [address]Dr. Airam Tripathi Protein [Mass/Vol] 6.3 g/dL Critically low 6.4-8.2 [facility] Comment on above: Performed By: #### C MP, URIC ####[facility] Ozqsuctrym2[address] [place] [address]Dr. Airam Tripathi Sodium [Moles/Vol] 130 mmol/L Critically low 136-145 Th [facility] Comment on above: Performed By: #### C MP, URIC ####[facility] Dmuymnsytx5375 [place] [address]Dr. Airam Tripathi Urea nitrogen [Mass/Vol] 49.0 mg/dL Critically high 7.0-18.0 [facility] Comment on above: Performed By: #### C MP, URIC ####[facility] Hbcwpusptx99[address] [place], [place] [address]Dr. Airam Tripathi Urea nitrogen/Creatinine [Mass ratio] 26.3 mg/mg Normal [facility] Comment on above: Performed By: #### C MP, URIC ####[facility] Rxkqddvzkv120[address] [place], [place] [address]Dr. Airam Tripathi URIC ACID SERUMon 04-06-2022 Urate [Mass/Vol] 6.5 mg/dL Critically high 2.6-6.0 [facility] Comment on above: Performed By: #### C MP, URIC ####[facility] Tvshqebdso6[address] [place], [place] [address]Dr. Airam Tripathi VITAMIN D 25 OHon 04-06-2022 VIT D 25-OH 74.5 ng/mL Normal [facility] Comment on above: Performed By: #### F ETIBC, VITAD, FERR ####[facility] Lfjlbpteti6856 [place] [address]Dr. Airam Tripathi VIT D RANGES SEE BELOW Normal [facility] Comment on above: Result Comment: <20 ng/mL Vit D deficient 20 - <30 ng/mL Vit D insufficient 30 - 100 ng/mL Vit D sufficient >100 ng/mL Potential Toxicity Performed By: #### F ETIBC, VITAD, FERR ####[facility] Taoflnitqy4934 [place] [address]Dr. Airam Tripathi OSMOLALITYon 04-01-2022 Osmolality [Osmolality] 284 mosm/kg Normal 275-295 [facility] Comment on above: Performed By: #### O SMO ####[facility] Ixboqismts8646 [place] [address]Dr. Airam Tripathi CBC AUTO DIFFon 03-31-2022 BASO # 0.0 103/ul Normal 0.0-0.1 [facility] Comment on above: Performed By: #### C BC ####[facility] Scdilpohpr9415[address] [place], [place] [address]Dr. Airam Deuce Basophils/100 WBC (Bld) 0.3 % Normal 0.2-2.0 [facility] Comment on above: Performed By: #### C BC ####[facility] Zsgwkatypy5168[address] [place], [place] [address]Dr. Airam Tripathi EO # 0.1 103/ul Normal 0.0-0.7 [facility] Comment on above: Performed By: #### C BC ####[facility] Udkgfpcetu6625[address] [place], [place] [address]Dr. Selenaneil Tripathi Eosinophils/100 WBC (Bld) 2.0 % Normal 0.9-7.0 [facility] Comment on above: Performed By: #### C BC ####[facility] Zuofexnzmi75[address] [place], [place] [address]Dr. Selenaneil Tripathi Erythrocyte distribution width (RBC) [Ratio] 13.5 % Normal 11.0-15.0 [facility] Comment on above: Performed By: #### C BC ####[facility] Cuyytrfogc2334[address] [place], [place] [address]Dr. Airam Tripathi Hematocrit (Bld) [Volume fraction] 32.5 % Critically low 36.0-48.0 [facility] Comment on above: Performed By: #### C BC ####[facility] Tosojeacvo243[address] [place], [place] [address]Dr. Airam Deuce Hemoglobin (Bld) [Mass/Vol] 10.1 g/dL Critically low 12.0-16.0 [facility] Comment on above: Performed By: #### C BC ####[facility] Iahafmozaj6182 [place] [id number]. Airam Tripathi IG # 0.03 10e3/ul Normal 0.00-0.03 [facility] Comment on above: Performed By: #### C BC ####[facility] Oceneigmux7467 [place] [id number]. Airam Tripathi IG % 0.4 % Normal 0.0-0.5 [facility] Comment on above: Performed By: #### C BC ####[facility] Etsfxdgfgr4760 [place] [address]Dr. Airam Tripathi LYMPH # 1.6 103/ul Normal 1.2-3.8 [facility] Comment on above: Performed By: #### C BC ####[facility] Zdokdkymcu3106[address] [place], [place] [address]Dr. Airam Tripathi Lymphocytes/100 WBC (Bld) 22.6 % Normal 20.5-60.0 [facility] Comment on above: Performed By: #### C BC ####[facility] Wakruqwbpl4386 [place] [address]Dr. Airam Tripathi MANUAL DIFF REQ NO Normal [facility] Comment on above: Performed By: #### C BC ####[facility] Ismirbmmwq5177[address] [place], [place] [address]Dr. Airam Tripathi MCH (RBC) [Entitic mass] 30.5 pg Normal 26.7-34.0 [facility] Comment on above: Performed By: #### C BC ####[facility] Jvvbgyifzg5868[address] [place], [place] [address]Dr. Airam Tripathi MCHC (RBC) [Mass/Vol] 31.1 g/dL Normal 29.9-35.2 [facility] Comment on above: Performed By: #### C BC ####[facility] Ayeuvszlds4947 [place] [address]Dr. Airam Tripathi MCV (RBC) [Entitic vol] 98.2 fL Normal 81.0-99.0 [facility] Comment on above: Performed By: #### C BC ####[facility] Yrxynidnje0065 [place] [id number]. Airam Tripathi MONO # 0.5 103/ul Normal 0.3-0.8 [facility] Comment on above: Performed By: #### C BC ####[facility] Hawujoluua4975 [place] [phone]. Airam Tripathi Monocytes/100 WBC (Bld) 7.3 % Normal 1.7-12.0 [facility] Comment on above: Performed By: #### C BC ####[facility] Mfnxrbgmdu5968 [place] [phone]. Airam Tripathi NEUT # 4.7 103/ul Normal 1.4-6.5 [facility] Comment on above: Performed By: #### C BC ####[facility] Byqaacmxxp0603 [place] [phone]. Airam Tripathi Neutrophils/100 WBC (Bld) 67.4 % Normal 43.0-75.0 [facility] Comment on above: Performed By: #### C BC ####[facility] Slfvamqjks4643 [place] [phone]. Airam Tripathi Platelet mean volume (Bld) [Entitic vol] 9.5 fL Normal 9.5-13.5 [facility] Comment on above: Performed By: #### C BC ####[facility] Pvruxgzcxr6450 [place] [phone]. Airam Tripathi PLT 273 103/ul Normal 150-450 [facility] Comment on above: Performed By: #### C BC ####[facility] Wxfvhuahgj8312 [place] [phone]. Airam Tripathi RBC 3.31 106/ul Critically low 4.20-5.40 [facility] Comment on above: Performed By: #### C BC ####[facility] Wiupzcweqm3235 [place] [phone]. Airam Tripathi WBC 7.0 103/ul Normal 4.0-11.0 [facility] Comment on above: Performed By: #### C BC ####[facility] Dhhegurxet2287[address] [place], [place] [address]Dr. Airam Tripathi PROF 14(COMP METB)on 022 Albumin [Mass/Vol] 3.4 g/dL Normal 3.4-5.0 [facility] Comment on above: Performed By: #### C MP ####[facility] Elncetjjfh035[address] [place], [place] [address]Dr. Airam Tripathi Albumin/Globulin [Mass ratio] 1.1 {ratio} Normal [facility] Comment on above: Performed By: #### C MP ####[facility] Umartbvhzo5565[address] [place], [place] [address]Dr. Airam Tripathi ALP [Catalytic activity/Vol] 107 U/L Normal 46-116 [facility] Comment on above: Performed By: #### C MP ####[facility] Jlpmdccfmp6666[address] [place], [place] [address]Dr. Airam Tripathi ALT [Catalytic activity/Vol] 22 U/L Normal 14-59 [facility] Comment on above: Performed By: #### C MP ####[facility] Kynwcxjzmp712[address] [place], [place] [address]Dr. Airam Tripathi Anion gap [Moles/Vol] 6.8 mmol/L Normal [facility] Comment on above: Performed By: #### C MP ####[facility] Epsadwekst663[address] [place], [place] [address]Dr. Airam Tripathi AST [Catalytic activity/Vol] 23 U/L Normal 15-37 [facility] Comment on above: Performed By: #### C MP ####[facility] Yfwyixteac995[address] [place], [place] [address]Dr. Airam Tripathi Bilirubin [Mass/Vol] 0.2 mg/dL Normal 0.2-1.0 [facility] Comment on above: Performed By: #### C MP ####[facility] Kzgabczvax1677[address] [place], [place] [address]Dr. Airam Tripathi Calcium [Mass/Vol] 8.4 mg/dL Critically low 8.5-10.1 [facility] Comment on above: Performed By: #### C MP ####[facility] Vfqtwwmlhu0357 [place] [address]Dr. Airam Tripathi Chloride [Moles/Vol] 100 mmol/L Normal 98-107 [facility] Comment on above: Performed By: #### C MP ####[facility] Plynzlglre5684 [place] [address]Dr. Airam Tripathi CO2 [Moles/Vol] 29.9 mmol/L Normal 21.0-32.0 [facility] Comment on above: Performed By: #### C MP ####[facility] Jfrlefrtun2538 [place] [address]Dr. Airam Tripathi Creatinine [Mass/Vol] 1.20 mg/dL Critically high 0.55-1.02 [facility] Comment on above: Performed By: #### C MP ####[facility] Drbltwrdry982[address] [place], [place] [address]Dr. Airam Rtipathi EGFR-AF SLOVENIAN 56 mL/min/1.73m2 Critically low >=60 [facility] Comment on above: Performed By: #### C MP ####[facility] Mayfqubfcx137[address] [place], [place] [address]Dr. Airam Tripathi EGFR-NON AF SLOVENIAN 46 mL/min/1.73m2 Critically low >=60 [facility] Comment on above: Performed By: #### C MP ####[facility] Mttcozkhqa1560 [place] [address]Dr. Airam Tripathi Globulin (S) [Mass/Vol] 3.0 g/dL Normal [facility] Comment on above: Performed By: #### C MP ####[facility] Vvdytkfkyj8950 [place] [address]Dr. Airam Deuce Glucose [Mass/Vol] 57 mg/dL Critically low 74-106 [facility] Comment on above: Performed By: #### C MP ####[facility] Ffmzvrgcdy3034 [place] [address]Dr. Airam Tripathi Potassium [Moles/Vol] 3.7 mmol/L Normal 3.5-5.1 [facility] Comment on above: Performed By: #### C MP ####[facility] Kexujckfmt2116 [place] [address]Dr. Airam Tripathi Protein [Mass/Vol] 6.4 g/dL Normal 6.4-8.2 [facility] Comment on above: Performed By: #### C MP ####[facility] Guidkyecre8034[address] [place], [place] [address]Dr. Airam Tripathi Sodium [Moles/Vol] 133 mmol/L Critically low 136-145 [facility] Comment on above: Performed By: #### C MP ####[facility] Agnzspzeza697[address] [place], [place] [address]Dr. Airam Tripathi Urea nitrogen [Mass/Vol] 39.0 mg/dL Critically high 7.0-18.0 [facility] Comment on above: Performed By: #### C MP ####[facility] Gykophkmdd7347[address] [place], [place] [address]Dr. Airam Tripathi Urea nitrogen/Creatinine [Mass ratio] 32.5 mg/mg Normal [facility] Comment on above: Performed By: #### C MP ####[facility] Xbkpgwpwvv0488[address] [place], [place] [address]Dr. Airam Tripathi OSMOLALITYon 03-24-2022 Osmolality [Osmolality] 285 mosm/kg Normal 275-295 [facility] Comment on above: Performed By: #### O SMO ####[facility] Wrwsycverd8397[address] [place], [place] [address]Dr. Airam Tripathi CBC AUTO DIFFon 03-22-2022 BASO # 0.0 103/ul Normal 0.0-0.1 [facility] Comment on above: Performed By: #### C BC ####[facility] Wlkzoipman772[address] [place], [place] [address]Dr. Airam Deuce Basophils/100 WBC (Bld) 0.4 % Normal 0.2-2.0 [facility] Comment on above: Performed By: #### C BC ####[facility] Qxzegfhwvu675[address] [place], [place] [address]Dr. Airam Deuce EO # 0.2 103/ul Normal 0.0-0.7 [facility] Comment on above: Performed By: #### C BC ####[facility] Lcphrotpkn4850 [place] [phone]. Airam Tripathi Eosinophils/100 WBC (Bld) 2.3 % Normal 0.9-7.0 [facility] Comment on above: Performed By: #### C BC ####[facility] Xkfqidpdcv4133 [place] [phone]. Airam Tripathi Erythrocyte distribution width (RBC) [Ratio] 13.9 % Normal 11.0-15.0 [facility] Comment on above: Performed By: #### C BC ####[facility] Ydjturcprb6308 [place] [phone]. Airam Tripathi Hematocrit (Bld) [Volume fraction] 32.6 % Critically low 36.0-48.0 [facility] Comment on above: Performed By: #### C BC ####[facility] Qwbokinsfi6806[address] [place], [place] [address]Dr. Airam Tripathi Hemoglobin (Bld) [Mass/Vol] 10.3 g/dL Critically low 12.0-16.0 [facility] Comment on above: Performed By: #### C BC ####[facility] Mepsqfturn3466[address] [place], [place] [address]Dr. Airam Tripathi IG # 0.11 10e3/ul Critically high 0.00-0.03 [facility] Comment on above: Performed By: #### C BC ####[facility] Bqucuaeiih319[address] [place], [place] [address]Dr. Airam Tripathi IG % 1.4 % Critically high 0.0-0.5 [facility] Comment on above: Performed By: #### C BC ####[facility] Uppivwaont9158 [place] [phone]. Airam Tripathi LYMPH # 1.3 103/ul Normal 1.2-3.8 [facility] Comment on above: Performed By: #### C BC ####[facility] Nvcqgasess9660[address] [place], [place] [address]Dr. Airam Tripathi Lymphocytes/100 WBC (Bld) 15.9 % Critically low 20.5-60.0 [facility] Comment on above: Performed By: #### C BC ####[facility] Loemflyonv3260 [place] [address]Dr. Airam Tripathi MANUAL DIFF REQ NO Normal [facility] Comment on above: Performed By: #### C BC ####[facility] Excnmjcybc8507 [place] [phone]. Airam Tripathi MCH (RBC) [Entitic mass] 30.7 pg Normal 26.7-34.0 [facility] Comment on above: Performed By: #### C BC ####[facility] Vuqthdfhpo659[address] [place], [place] [address]Dr. Airam Tripathi MCHC (RBC) [Mass/Vol] 31.6 g/dL Normal 29.9-35.2 [facility] Comment on above: Performed By: #### C BC ####[facility] Bzholbwjpx1000[address] [place], [place] [address]Dr. Airam Tripathi MCV (RBC) [Entitic vol] 97.0 fL Normal 81.0-99.0 [facility] Comment on above: Performed By: #### C BC ####[facility] Qrrpiwfbco3201[address] [place], [place] [address]Dr. Airam Tripathi MONO # 0.6 103/ul Normal 0.3-0.8 [facility] Comment on above: Performed By: #### C BC ####[facility] Bysugylqow6324[address] [place], [place] [address]Dr. Airam Deuce Monocytes/100 WBC (Bld) 6.9 % Normal 1.7-12.0 [facility] Comment on above: Performed By: #### C BC ####[facility] Zfnekojefy4494[address] [place], [place] [address]Dr. Airam Tripathi NEUT # 5.9 103/ul Normal 1.4-6.5 [facility] Comment on above: Performed By: #### C BC ####[facility] Mapovvxhcx9285[address] [place], [place] [address]Dr. Airam Tripathi Neutrophils/100 WBC (Bld) 73.1 % Normal 43.0-75.0 [facility] Comment on above: Performed By: #### C BC ####[facility] Nmnmypivqp3827 [place] [phone]. Selenaneil Deuce Platelet mean volume (Bld) [Entitic vol] 9.5 fL Normal 9.5-13.5 [facility] Comment on above: Performed By: #### C BC ####[facility] Nuqsqtzzqm9847 [place] [phone]. Airam Tripathi PLT 313 103/ul Normal 150-450 [facility] Comment on above: Performed By: #### C BC ####[facility] Sphsjwagrv3470 [place] [phone]. Airam Tripathi RBC 3.36 106/ul Critically low 4.20-5.40 [facility] Comment on above: Performed By: #### C BC ####[facility] Qrbuewmuyt1328 [place] [address]Dr. Airam Tripathi WBC 8.1 103/ul Normal 4.0-11.0 [facility] Comment on above: Performed By: #### C BC ####[facility] Lyakpuacbc1799 [place] [address]Dr. Airam Tripathi PROF 14(COMP METB)on 022 Albumin [Mass/Vol] 3.3 g/dL Critically low 3.4-5.0 [facility] Comment on above: Performed By: #### C MP ####[facility] Matgkgzcqb4860 [place] [address]Dr. Airam Tripathi Albumin/Globulin [Mass ratio] 1.0 {ratio} Normal [facility] Comment on above: Performed By: #### C MP ####[facility] Lyxzawhnji7125 [place] [phone]. Airam Tripathi ALP [Catalytic activity/Vol] 113 U/L Normal 46-116 [facility] Comment on above: Performed By: #### C MP ####[facility] Udzxojlyub9806 [place] [phone]. Airam Tripathi ALT [Catalytic activity/Vol] 21 U/L Normal 14-59 [facility] Comment on above: Performed By: #### C MP ####[facility] Cjjesprehm6967 [place] [phone]. Airam Tripathi Anion gap [Moles/Vol] 12.2 mmol/L Normal [facility] Comment on above: Performed By: #### C MP ####[facility] Zihohyxgnn1401 [place], [place] [address]. Air[place] Tripathi AST [Catalytic activity/Vol] 21 U/L Normal 15-37 [facility] Comment on above: Performed By: #### C MP ####[facility] Pozilqhylv7521 [place] [phone]. Airam Tripathi Bilirubin [Mass/Vol] 0.2 mg/dL Normal 0.2-1.0 [facility] Comment on above: Performed By: #### C MP ####[facility] Vniexpcflb4456 [place] [phone]. Airam Tripathi Calcium [Mass/Vol] 8.4 mg/dL Critically low 8.5-10.1 [facility] Comment on above: Performed By: #### C MP ####[facility] Yatljybibu8602 [place] [phone]. Airam Tripathi Chloride [Moles/Vol] 103 mmol/L Normal 98-107 [facility] Comment on above: Performed By: #### C MP ####[facility] Wnihhrqwdo7514 [place] [phone]. Airam Tripathi CO2 [Moles/Vol] 24.4 mmol/L Normal 21.0-32.0 [facility] Comment on above: Performed By: #### C MP ####[facility] Fhwwzbtqps5383 [place] [phone]. Airam Tripathi Creatinine [Mass/Vol] 1.11 mg/dL Critically high 0.55-1.02 [facility] Comment on above: Performed By: #### C MP ####[facility] Xlweylddoq1372 [place] [phone]. Airam Tripathi EGFR-AF SLOVENIAN >60 Normal >=60 [facility] Comment on above: Performed By: #### C MP ####[facility] Dcmaryoggx0047 [place] [phone]. Airam Tripathi EGFR-NON AF SLOVENIAN 50 mL/min/1.73m2 Critically low >=60 [facility] Comment on above: Performed By: #### C MP ####[facility] Ffclnbhaus0107 [place] [phone]. Airam Tripathi Globulin (S) [Mass/Vol] 3.2 g/dL Normal [facility] Comment on above: Performed By: #### C MP ####[facility] Lntjxltztr1443 [place] [address]Dr. Airam Tripathi Glucose [Mass/Vol] 84 mg/dL Normal 74-106 [facility] Comment on above: Performed By: #### C MP ####[facility] Ubjxwjzrsv0739 [place] [address]Dr. Airam Tripathi Potassium [Moles/Vol] 4.6 mmol/L Normal 3.5-5.1 [facility] Comment on above: Performed By: #### C MP ####[facility] Ionofcboho5709 [place] [address]Dr. Airam Tripathi Protein [Mass/Vol] 6.5 g/dL Normal 6.4-8.2 [facility] Comment on above: Performed By: #### C MP ####[facility] Uevuhqhkyl4521 [place] [address]Dr. Airam Tripathi Sodium [Moles/Vol] 135 mmol/L Critically low 136-145 [facility] Comment on above: Performed By: #### C MP ####[facility] Klzdtrlnes0312 [place] [address]Dr. Airam Tripathi Urea nitrogen [Mass/Vol] 39.0 mg/dL Critically high 7.0-18.0 [facility] Comment on above: Performed By: #### C MP ####[facility] Ccdojrnnce5243 [place] [address]Dr. Airam Tripathi Urea nitrogen/Creatinine [Mass ratio] 35.1 mg/mg Normal [facility] Comment on above: Performed By: #### C MP ####[facility] Bfinncvect7286 [place] [address]Dr. Airam Tripathi OSMOLALITYon 03-17-2022 Osmolality [Osmolality] 277 mosm/kg Normal 275-295 [facility] Comment on above: Performed By: #### O SMO ####[facility] Qjepoarfqx1888 [place] [address]Dr. Airam Tripathi CBC AUTO DIFFon 03-15-2022 BASO # 0.0 103/ul Normal 0.0-0.1 [facility] Comment on above: Performed By: #### C BC ####[facility] Ovgjywnutl13[address] [place], [place] [address]Dr. Selenaneil Tripathi Basophils/100 WBC (Bld) 0.4 % Normal 0.2-2.0 [facility] Comment on above: Performed By: #### C BC ####[facility] Eruvbepddi6266[address] [place], [place] [address]Dr. Airam Tripathi EO # 0.1 103/ul Normal 0.0-0.7 [facility] Comment on above: Performed By: #### C BC ####[facility] Plypvxzvjo101[address] [place], [place] [address]Dr. Selenaneil Tripathi Eosinophils/100 WBC (Bld) 2.4 % Normal 0.9-7.0 [facility] Comment on above: Performed By: #### C BC ####[facility] Smjkxockgq7513[address] [place], [place] [address]Dr. Airam Tripathi Erythrocyte distribution width (RBC) [Ratio] 13.9 % Normal 11.0-15.0 [facility] Comment on above: Performed By: #### C BC ####[facility] Jouycfbpsy2395[address] [place], [place] [address]Dr. Airam Tripathi Hematocrit (Bld) [Volume fraction] 31.2 % Critically low 36.0-48.0 [facility] Comment on above: Performed By: #### C BC ####[facility] Ogvnagbroe8545[address] [place], [place] [address]Dr. Airam Tripathi Hemoglobin (Bld) [Mass/Vol] 9.9 g/dL Critically low 12.0-16.0 [facility] Comment on above: Performed By: #### C BC ####[facility] Buvdunzalt0887 [place] [phone]. Airam Tripathi IG # 0.03 10e3/ul Normal 0.00-0.03 [facility] Comment on above: Performed By: #### C BC ####[facility] Fgvyfyksly1342 [place] [phone]. Airam Tripathi IG % 0.6 % Critically high 0.0-0.5 [facility] Comment on above: Performed By: #### C BC ####[facility] Imjkdtbaeh5736 [place] [address]Dr. Airam Tripathi LYMPH # 1.5 103/ul Normal 1.2-3.8 [facility] Comment on above: Performed By: #### C BC ####[facility] Ebxnxyffhv3098 [place] [address]Dr. Airam Tripathi Lymphocytes/100 WBC (Bld) 29.4 % Normal 20.5-60.0 [facility] Comment on above: Performed By: #### C BC ####[facility] Lgtamnuved8471 [place] [address]Dr. Airam Tripathi MANUAL DIFF REQ NO Normal [facility] Comment on above: Performed By: #### C BC ####[facility] Vwgwjspvcw32[address] [place], [place] [address]Dr. Airam Tripathi MCH (RBC) [Entitic mass] 30.5 pg Normal 26.7-34.0 [facility] Comment on above: Performed By: #### C BC ####[facility] Ubeuzjyjrv603[address] [place], [place] [address]Dr. Airam Tripathi MCHC (RBC) [Mass/Vol] 31.7 g/dL Normal 29.9-35.2 [facility] Comment on above: Performed By: #### C BC ####[facility] Prbaszkrqa8777[address] [place], [place] [address]Dr. Airam Tripathi MCV (RBC) [Entitic vol] 96.0 fL Normal 81.0-99.0 [facility] Comment on above: Performed By: #### C BC ####[facility] Zeimitgsqv5970 [place] [phone]. Airam Tripathi MONO # 0.4 103/ul Normal 0.3-0.8 [facility] Comment on above: Performed By: #### C BC ####[facility] Smkjrzayzn6099 [place] [phone]. Airam Tripathi Monocytes/100 WBC (Bld) 7.0 % Normal 1.7-12.0 [facility] Comment on above: Performed By: #### C BC ####[facility] Dplwyviloy4536 [place] [phone]. Airam Tripathi NEUT # 3.0 103/ul Normal 1.4-6.5 [facility] Comment on above: Performed By: #### C BC ####[facility] Hbrdodetag70[address] [place], [place] [address]Dr. Airam Tripathi Neutrophils/100 WBC (Bld) 60.2 % Normal 43.0-75.0 [facility] Comment on above: Performed By: #### C BC ####[facility] Somryppaej4836[address] [place], [place] [address]Dr. Airam Tripathi Platelet mean volume (Bld) [Entitic vol] 9.6 fL Normal 9.5-13.5 [facility] Comment on above: Performed By: #### C BC ####[facility] Qasmxknfdy55[address] [place], [place] [address]Dr. Airam Tripathi PLT 258 103/ul Normal 150-450 [facility] Comment on above: Performed By: #### C BC ####[facility] Gymwuowhuw[address] [place], [place] [address]Dr. Airam Tripathi RBC 3.25 106/ul Critically low 4.20-5.40 [facility] Comment on above: Performed By: #### C BC ####[facility] Fjopamxgdg[address] [place], [place] [address]Dr. Airam Tripathi WBC 5.0 103/ul Normal 4.0-11.0 [facility] Comment on above: Performed By: #### C BC ####[facility] Suoujdtbol8[address] [place], [place] [address]Dr. Airam Tripathi PROF 14(COMP METB)on 022 Albumin [Mass/Vol] 3.3 g/dL Critically low 3.4-5.0 [facility] Comment on above: Performed By: #### C MP ####[facility] Gcqvxczknm55[address] [place], [place] [address]Dr. Airam Tripathi Albumin/Globulin [Mass ratio] 1.1 {ratio} Normal [facility] Comment on above: Performed By: #### C MP ####[facility] Hkbnalnzfh3412[address] [place], [place] [address]Dr. Airam Tripathi ALP [Catalytic activity/Vol] 106 U/L Normal 46-116 [facility] Comment on above: Performed By: #### C MP ####[facility] Dreutxyzri2066[address] [place], [place] [address]Dr. Airam Tripathi ALT [Catalytic activity/Vol] 22 U/L Normal 14-59 [facility] Comment on above: Performed By: #### C MP ####[facility] Skxyrlqoia415[address] [place], [place] [address]Dr. Airam Tripathi Anion gap [Moles/Vol] 11.4 mmol/L Normal Th [facility] Comment on above: Performed By: #### C MP ####[facility] Nokkpzwxpv7365[address] [place], [place] [address]Dr. Airam Tripathi AST [Catalytic activity/Vol] 22 U/L Normal 15-37 [facility] Comment on above: Performed By: #### C MP ####[facility] Nnqupffboj428[address] [place], [place] [address]Dr. Airam Tripathi Bilirubin [Mass/Vol] 0.3 mg/dL Normal 0.2-1.0 [facility] Comment on above: Performed By: #### C MP ####[facility] Hcmecqdxwi259[address] [place], [place] [address]Dr. Airam Tripathi Calcium [Mass/Vol] 8.1 mg/dL Critically low 8.5-10.1 Th [facility] Comment on above: Performed By: #### C MP ####[facility] Cillyxaoux[address] [place] [id number]. Airam Tripathi Chloride [Moles/Vol] 100 mmol/L Normal 98-107 [facility] Comment on above: Performed By: #### C MP ####[facility] Ufpibeqygs4140 [place] [id number]. Airam Tripathi CO2 [Moles/Vol] 25.6 mmol/L Normal 21.0-32.0 [facility] Comment on above: Performed By: #### C MP ####[facility] Ptzyqcdbhk525[address] [place], [place] [address]Dr. Airam Tripathi Creatinine [Mass/Vol] 1.21 mg/dL Critically high 0.55-1.02 [facility] Comment on above: Performed By: #### C MP ####[facility] Mlpmikgevj5979[address] [place], [place] [address]Dr. Airam Deuce EGFR-AF SLOVENIAN 55 mL/min/1.73m2 Critically low >=60 [facility] Comment on above: Performed By: #### C MP ####[facility] Cluepaxpsb950[address] [place], [place] [address]Dr. Airam Tripathi EGFR-NON AF SLOVENIAN 45 mL/min/1.73m2 Critically low >=60 [facility] Comment on above: Performed By: #### C MP ####[facility] Kirzcsrqsy95[address] [place], [place] [address]Dr. Airam Tripathi Globulin (S) [Mass/Vol] 3.0 g/dL Normal [facility] Comment on above: Performed By: #### C MP ####[facility] Lkxhphbhqd8847[address] [place], [place] [address]Dr. Airam Tripathi Glucose [Mass/Vol] 84 mg/dL Normal 74-106 [facility] Comment on above: Performed By: #### C MP ####[facility] Mtsnpowwji4348[address] [place], [place] [address]Dr. Airam Tripathi Potassium [Moles/Vol] 4.0 mmol/L Normal 3.5-5.1 [facility] Comment on above: Performed By: #### C MP ####[facility] Comtnflpbj5534 [place] [id number]. Airam Tripathi Protein [Mass/Vol] 6.3 g/dL Critically low 6.4-8.2 Th [facility] Comment on above: Performed By: #### C MP ####[facility] Gulgsiwamw9067[address] [place], [place] [address]Dr. Airam Tripathi Sodium [Moles/Vol] 133 mmol/L Critically low 136-145 Th [facility] Comment on above: Performed By: #### C MP ####[facility] Tcnhpsflle795[address] [place], [place] [address]Dr. Airam Tripathi Urea nitrogen [Mass/Vol] 29.0 mg/dL Critically high 7.0-18.0 [facility] Comment on above: Performed By: #### C MP ####[facility] Jvszqtknlr971[address] [place], [place] [address]Dr. Airam Deuce Urea nitrogen/Creatinine [Mass ratio] 24.0 mg/mg Normal [facility] Comment on above: Performed By: #### C MP ####[facility] Dfundhswqs5764[address] [place], [place] [address]Dr. Airam Tripathi OSMOLALITYon 03-12-2022 Osmolality [Osmolality] 285 mosm/kg Normal 275-295 [facility] Comment on above: Performed By: #### O SMO ####[facility] Hgsskmtlsl2589[address] [place], [place] [address]Dr. Airam Deuce CBC AUTO DIFFon 03-10-2022 BASO # 0.0 103/ul Normal 0.0-0.1 [facility] Comment on above: Performed By: #### C BC ####[facility] Dhlyxdnmsm1005[address] [place], [place] [address]Dr. Airam Deuce Basophils/100 WBC (Bld) 0.3 % Normal 0.2-2.0 [facility] Comment on above: Performed By: #### C BC ####[facility] Pzarphxpbd5712[address] [place], [place] [address]Dr. Airam Tripathi EO # 0.2 103/ul Normal 0.0-0.7 [facility] Comment on above: Performed By: #### C BC ####[facility] Olihtjmhfd1150 [place] [id number]. Airam Tripathi Eosinophils/100 WBC (Bld) 2.7 % Normal 0.9-7.0 [facility] Comment on above: Performed By: #### C BC ####[facility] Aebeymclww7364[address] [place], [place] [address]Dr. Airam Tripathi Erythrocyte distribution width (RBC) [Ratio] 14.4 % Normal 11.0-15.0 [facility] Comment on above: Performed By: #### C BC ####[facility] Nvknjhwtbk343[address] [place], [place] [address]Dr. Airam Tripathi Hematocrit (Bld) [Volume fraction] 32.5 % Critically low 36.0-48.0 [facility] Comment on above: Performed By: #### C BC ####[facility] Empynhbnzj562122 [address] [place], [place] [address]Dr. Airam Tripathi Hemoglobin (Bld) [Mass/Vol] 10.1 g/dL Critically low 12.0-16.0 [facility] Comment on above: Performed By: #### C BC ####[facility] Hcyeoarxsk0999[address] [place], [place] [address]Dr. Airam Tripathi IG # 0.03 10e3/ul Normal 0.00-0.03 [facility] Comment on above: Performed By: #### C BC ####[facility] Kxgxxdnowt7180[address] [place], [place] [address]Dr. Airam Tripathi IG % 0.4 % Normal 0.0-0.5 [facility] Comment on above: Performed By: #### C BC ####[facility] Dvgfqkpkqa224[address] [place], [place] [address]Dr. Airam Tripathi LYMPH # 1.4 103/ul Normal 1.2-3.8 [facility] Comment on above: Performed By: #### C BC ####[facility] Weufhlanmn431222 [address] [place], [place] [address]Dr. Airam Tripathi Lymphocytes/100 WBC (Bld) 19.4 % Critically low 20.5-60.0 [facility] Comment on above: Performed By: #### C BC ####[facility] Rfuatqtbwv8044 [place] [address]Dr. Selenaneil Tripathi MANUAL DIFF REQ NO Normal [facility] Comment on above: Performed By: #### C BC ####[facility] Ggupvgdosg3685 [place] [phone]. Selenaneil Tripathi MCH (RBC) [Entitic mass] 30.6 pg Normal 26.7-34.0 [facility] Comment on above: Performed By: #### C BC ####[facility] Pznmkdtgis3078 [place] [phone]. Airam Deuce MCHC (RBC) [Mass/Vol] 31.1 g/dL Normal 29.9-35.2 [facility] Comment on above: Performed By: #### C BC ####[facility] Awrdwhmupc8750[address] [place], [place] [address]Dr. Airam Tripathi MCV (RBC) [Entitic vol] 98.5 fL Normal 81.0-99.0 [facility] Comment on above: Performed By: #### C BC ####[facility] Bvrbxplzok6756[address] [place], [place] [address]Dr. Airam Tripathi MONO # 0.5 103/ul Normal 0.3-0.8 [facility] Comment on above: Performed By: #### C BC ####[facility] Nbtetfwmqe032[address] [place], [place] [address]Dr. Airam Tripathi Monocytes/100 WBC (Bld) 6.7 % Normal 1.7-12.0 [facility] Comment on above: Performed By: #### C BC ####[facility] Kgrgzyqdmn165[address] [place], [place] [address]Dr. Airam Tripathi NEUT # 5.2 103/ul Normal 1.4-6.5 [facility] Comment on above: Performed By: #### C BC ####[facility] Hqomxczupy[address] [place], [place] [address]Dr. Airam Tripathi Neutrophils/100 WBC (Bld) 70.5 % Normal 43.0-75.0 [facility] Comment on above: Performed By: #### C BC ####[facility] Ulqrhafcep39[address] [place] [address]Dr. Selenaneil Deuce Platelet mean volume (Bld) [Entitic vol] 9.8 fL Normal 9.5-13.5 [facility] Comment on above: Performed By: #### C BC ####[facility] Pcrhbhurwx2226 [place] [address]Dr. Airam Tripathi PLT 277 103/ul Normal 150-450 [facility] Comment on above: Performed By: #### C BC ####[facility] Qdmthiexzr7460 [place] [address]Dr. Airam Tripathi RBC 3.30 106/ul Critically low 4.20-5.40 [facility] Comment on above: Performed By: #### C BC ####[facility] Fooxcatatv318[address] [place], [place] [address]Dr. Airam Tripathi WBC 7.4 103/ul Normal 4.0-11.0 [facility] Comment on above: Performed By: #### C BC ####[facility] Jdrrwvluwt96[address] [place], [place] [address]Dr. Airam Tripathi PROF 14(COMP METB)on 022 Albumin [Mass/Vol] 3.6 g/dL Normal 3.4-5.0 [facility] Comment on above: Performed By: #### C MP ####[facility] Ztizxjpomj167[address] [place], [place] [address]Dr. Airam Tripathi Albumin/Globulin [Mass ratio] 1.1 {ratio} Normal [facility] Comment on above: Performed By: #### C MP ####[facility] Pgeeamohik[address] [place] [address]Dr. Airam Tripathi ALP [Catalytic activity/Vol] 112 U/L Normal 46-116 [facility] Comment on above: Performed By: #### C MP ####[facility] Simwjuiuls4279 [place] [address]Dr. Airam Tripathi ALT [Catalytic activity/Vol] 26 U/L Normal 14-59 [facility] Comment on above: Performed By: #### C MP ####[facility] Xesmnayfik1470 [place] [id number]. Airam Tripathi Anion gap [Moles/Vol] 12.0 mmol/L Normal [facility] Comment on above: Performed By: #### C MP ####[facility] Ungkcffhcy2607 [place] [phone]. Airam Tripathi AST [Catalytic activity/Vol] 25 U/L Normal 15-37 [facility] Comment on above: Performed By: #### C MP ####[facility] Yonpjjjiiy6608 [place] [phone]. Airam Tripathi Bilirubin [Mass/Vol] 0.4 mg/dL Normal 0.2-1.0 [facility] Comment on above: Performed By: #### C MP ####[facility] Hlwhgewnba[address] [place], [place] [address]Dr. Airam Tripathi Calcium [Mass/Vol] 8.9 mg/dL Normal 8.5-10.1 [facility] Comment on above: Performed By: #### C MP ####[facility] Kygcrxtrcn8852 [place] [phone]. Airam Tripathi Chloride [Moles/Vol] 101 mmol/L Normal 98-107 [facility] Comment on above: Performed By: #### C MP ####[facility] Aattdsxquw3284 [place] [phone]. Airam Tripathi CO2 [Moles/Vol] 24.0 mmol/L Normal 21.0-32.0 [facility] Comment on above: Performed By: #### C MP ####[facility] Kewdievwdp2511 [place] [phone]. Airam Tripathi Creatinine [Mass/Vol] 1.51 mg/dL Critically high 0.55-1.02 [facility] Comment on above: Performed By: #### C MP ####[facility] Cnwibokhab7488 [place] [phone]. Airam Tripathi EGFR-AF SLOVENIAN 43 mL/min/1.73m2 Critically low >=60 [facility] Comment on above: Performed By: #### C MP ####[facility] Oyduppjrlm5790 [place] [phone]. Airam Tripathi EGFR-NON AF SLOVENIAN 35 mL/min/1.73m2 Critically low >=60 [facility] Comment on above: Performed By: #### C MP ####[facility] Olgggakfep9541 [place] [phone]. Airam Tripathi Globulin (S) [Mass/Vol] 3.2 g/dL Normal [facility] Comment on above: Performed By: #### C MP ####[facility] Malkjetfkp4907 [place] [phone]. Airam Tripathi Glucose [Mass/Vol] 82 mg/dL Normal 74-106 [facility] Comment on above: Performed By: #### C MP ####[facility] Dqqcbcpjdi3815 [place] [phone]. Airam Tripathi Potassium [Moles/Vol] 4.0 mmol/L Normal 3.5-5.1 [facility] Comment on above: Performed By: #### C MP ####[facility] Vmtpnlehpu7496 [place] [phone]. Airam Tripathi Protein [Mass/Vol] 6.8 g/dL Normal 6.4-8.2 [facility] Comment on above: Performed By: #### C MP ####[facility] Uzzzzcwhfe1493 [place] [phone]. Airam Tripathi Sodium [Moles/Vol] 133 mmol/L Critically low 136-145 [facility] Comment on above: Performed By: #### C MP ####[facility] Gaijciycmz7193 [place] [phone]. Airam Tripathi Urea nitrogen [Mass/Vol] 37.0 mg/dL Critically high 7.0-18.0 [facility] Comment on above: Performed By: #### C MP ####[facility] Xogzrgzsci8709 [place] [phone]. Airam Tripathi Urea nitrogen/Creatinine [Mass ratio] 24.5 mg/mg Normal [facility] Comment on above: Performed By: #### C MP ####[facility] Wmzkxmlmau8502 [place] [phone]. Airam Tripathi OSMOLALITYon 03-07-2022 Osmolality [Osmolality] 284 mosm/kg Normal 275-295 [facility] Comment on above: Performed By: #### O SMO ####[facility] Ahvtntxlnv708[address] [place], [place] [address]Dr. Airam Deuce CBC AUTO DIFFon 03-04-2022 BASO # 0.0 103/ul Normal 0.0-0.1 [facility] Comment on above: Performed By: #### C BC ####[facility] Gcssuxgqmg0796 [place] [address]Dr. Airam Tripathi Basophils/100 WBC (Bld) 0.3 % Normal 0.2-2.0 [facility] Comment on above: Performed By: #### C BC ####[facility] Zfplklbdxx7307[address] [place], [place] [address]Dr. Airam Tripathi EO # 0.1 103/ul Normal 0.0-0.7 [facility] Comment on above: Performed By: #### C BC ####[facility] Vvbbyxdvwn526[address] [place], [place] [address]Dr. Airam Tripathi Eosinophils/100 WBC (Bld) 2.0 % Normal 0.9-7.0 [facility] Comment on above: Performed By: #### C BC ####[facility] Feoefauhsw4244[address] [place], [place] [address]Dr. Airam Tripathi Erythrocyte distribution width (RBC) [Ratio] 14.5 % Normal 11.0-15.0 [facility] Comment on above: Performed By: #### C BC ####[facility] Arnftxxhrc577[address] [place], [place] [address]Dr. Airam Tripathi Hematocrit (Bld) [Volume fraction] 35.4 % Critically low 36.0-48.0 [facility] Comment on above: Performed By: #### C BC ####[facility] Bdbscgzpgu5155[address] [place], [place] [address]Dr. Airam Tripathi Hemoglobin (Bld) [Mass/Vol] 11.0 g/dL Critically low 12.0-16.0 [facility] Comment on above: Performed By: #### C BC ####[facility] Zcnukelesh4319 [place] [address]Dr. Airam Tripathi IG # 0.03 10e3/ul Normal 0.00-0.03 [facility] Comment on above: Performed By: #### C BC ####[facility] Auicivttud6785 [place] [address]Dr. Airam Tripathi IG % 0.4 % Normal 0.0-0.5 [facility] Comment on above: Performed By: #### C BC ####[facility] Aitjibxmch9120 [place] [address]Dr. Airam Tripathi LYMPH # 1.7 103/ul Normal 1.2-3.8 [facility] Comment on above: Performed By: #### C BC ####[facility] Wgzvnujjmr2706 [place] [address]DrKianna Tripathi Lymphocytes/100 WBC (Bld) 23.8 % Normal 20.5-60.0 [facility] Comment on above: Performed By: #### C BC ####[facility] Igafaymlem6736 [place] [address]DrKianna Tripathi MANUAL DIFF REQ NO Normal [facility] Comment on above: Performed By: #### C BC ####[facility] Lwndkcmryt1569 [place] [address]Dr. Airam Tripathi MCH (RBC) [Entitic mass] 30.0 pg Normal 26.7-34.0 [facility] Comment on above: Performed By: #### C BC ####[facility] Rlhqnxgaed6610[address] [place], [place] [address]Dr. Airam Tripathi MCHC (RBC) [Mass/Vol] 31.1 g/dL Normal 29.9-35.2 [facility] Comment on above: Performed By: #### C BC ####[facility] Hkncyxinzl8041 [place] [address]Dr. Airam Tripathi MCV (RBC) [Entitic vol] 96.5 fL Normal 81.0-99.0 [facility] Comment on above: Performed By: #### C BC ####[facility] Bhvcrdycgx3527 [place] [phone]. Airam Tripathi MONO # 0.5 103/ul Normal 0.3-0.8 [facility] Comment on above: Performed By: #### C BC ####[facility] Bzvecniwce0416 [place] [phone]. Airam Tripathi Monocytes/100 WBC (Bld) 6.6 % Normal 1.7-12.0 [facility] Comment on above: Performed By: #### C BC ####[facility] Fttykonmpo7882 [place] [phone]. Airam Tripathi NEUT # 4.7 103/ul Normal 1.4-6.5 [facility] Comment on above: Performed By: #### C BC ####[facility] Jrlvzkzviw8309 [place] [address]Dr. Airam Tripathi Neutrophils/100 WBC (Bld) 66.9 % Normal 43.0-75.0 [facility] Comment on above: Performed By: #### C BC ####[facility] Dwqvaimamf8319 [place] [address]Dr. Airam Tripathi Platelet mean volume (Bld) [Entitic vol] 10.2 fL Normal 9.5-13.5 [facility] Comment on above: Performed By: #### C BC ####[facility] Yzlejylzpu4590 [place] [address]Dr. Airam Tripathi PLT 270 103/ul Normal 150-450 [facility] Comment on above: Performed By: #### C BC ####[facility] Xcxbyopupz2308 [place] [phone]. Airam Tripathi RBC 3.67 106/ul Critically low 4.20-5.40 [facility] Comment on above: Performed By: #### C BC ####[facility] Pfgrgmfrlw6339 [place] [phone]. Airam Tripathi WBC 7.0 103/ul Normal 4.0-11.0 [facility] Comment on above: Performed By: #### C BC ####[facility] Itdwxaslhg6663 [place] [address]Dr. Airam Tripathi PROF 14(COMP METB)on 022 Albumin [Mass/Vol] 3.3 g/dL Critically low 3.4-5.0 [facility] Comment on above: Performed By: #### C MP ####[facility] Zquvtjwuaj1558 [place] [address]Dr. Airam Tripathi Albumin/Globulin [Mass ratio] 1.0 {ratio} Normal [facility] Comment on above: Performed By: #### C MP ####[facility] Gihhteduos4679[address] [place], [place] [address]Dr. Airam Tripathi ALP [Catalytic activity/Vol] 107 U/L Normal 46-116 [facility] Comment on above: Performed By: #### C MP ####[facility] Vnytmdqbmg1055[address] [place], [place] [address]Dr. Airam Tripathi ALT [Catalytic activity/Vol] 23 U/L Normal 14-59 [facility] Comment on above: Performed By: #### C MP ####[facility] Bbzadlrtxg5374[address] [place], [place] [address]Dr. Airam Tripathi Anion gap [Moles/Vol] 13.0 mmol/L Normal [facility] Comment on above: Performed By: #### C MP ####[facility] Czzosfbmvn957[address] [place], [place] [address]Dr. Airam Tripathi AST [Catalytic activity/Vol] 30 U/L Normal 15-37 [facility] Comment on above: Performed By: #### C MP ####[facility] Olutmhddcp0896[address] [place], [place] [address]Dr. Airam Tripathi Bilirubin [Mass/Vol] 0.2 mg/dL Normal 0.2-1.0 [facility] Comment on above: Performed By: #### C MP ####[facility] Ydkeyragvm3857[address] [place], [place] [address]Dr. Airam Tripathi Calcium [Mass/Vol] 8.8 mg/dL Normal 8.5-10.1 [facility] Comment on above: Performed By: #### C MP ####[facility] Adpjzqcuoc2176 [place] [phone]. Airam Tripathi Chloride [Moles/Vol] 103 mmol/L Normal 98-107 [facility] Comment on above: Performed By: #### C MP ####[facility] Bfqixpzhcx4961 [place] [phone]. Airam Tripathi CO2 [Moles/Vol] 24.9 mmol/L Normal 21.0-32.0 [facility] Comment on above: Performed By: #### C MP ####[facility] Jxidlsnsnr6192 [place] [address]Dr. Airam Tripathi Creatinine [Mass/Vol] 1.06 mg/dL Critically high 0.55-1.02 [facility] Comment on above: Performed By: #### C MP ####[facility] Omogmzmvia2448 [place] [address]Dr. Airam Tripathi EGFR-AF SLOVENIAN >60 Normal >=60 [facility] Comment on above: Performed By: #### C MP ####[facility] Ytutolkizd218[address] [place], [place] [address]Dr. Airam Tripathi EGFR-NON AF SLOVENIAN 53 mL/min/1.73m2 Critically low >=60 [facility] Comment on above: Performed By: #### C MP ####[facility] Nbphtahexa4269 [place] [address]Dr. Airam Tripathi Globulin (S) [Mass/Vol] 3.2 g/dL Normal [facility] Comment on above: Performed By: #### C MP ####[facility] Osjzcewcdj3348 [place] [address]Dr. Airam Tripathi Glucose [Mass/Vol] 91 mg/dL Normal 74-106 [facility] Comment on above: Performed By: #### C MP ####[facility] Cybzcjpxio5767 [place] [address]Dr. Airam Tripathi Potassium [Moles/Vol] 3.9 mmol/L Normal 3.5-5.1 [facility] Comment on above: Performed By: #### C MP ####[facility] Fphxnjoguy8261 [place] [address]Dr. Airam Deuce Protein [Mass/Vol] 6.5 g/dL Normal 6.4-8.2 [facility] Comment on above: Performed By: #### C MP ####[facility] Rkloxcriyx1511 [place] [address]Dr. Selenaneil Tripathi Sodium [Moles/Vol] 137 mmol/L Normal 136-145 [facility] Comment on above: Performed By: #### C MP ####[facility] Caesbbbzow799[address] [place], [place] [address]Dr. Airam Tripathi Urea nitrogen [Mass/Vol] 27.0 mg/dL Critically high 7.0-18.0 [facility] Comment on above: Performed By: #### C MP ####[facility] Rkihkshmxu0458[address] [place], [place] [address]Dr. Airam Tripathi Urea nitrogen/Creatinine [Mass ratio] 25.5 mg/mg Normal [facility] Comment on above: Performed By: #### C MP ####[facility] Jgtdqxqbov1404[address] [place], [place] [address]Dr. Airam Deuce OSMOLALITYon 03-03-2022 Osmolality [Osmolality] 383 mosm/kg Invalid Interpretation Code [id number] [facility] Comment on above: Result Comment: Ve rified by repeat analysis Performed By: #### O SMO ####[facility] Qzpgxdigoh975[address] [place], [place] [address]Dr. Airam Tripathi CBC AUTO DIFFon 02-22-2022 BASO # 0.0 103/ul Normal 0.0-0.1 [facility] Comment on above: Performed By: #### C BC ####[facility] Eewlvbjmeb184[address] [place], [place] [address]Dr. Airam Tripathi Basophils/100 WBC (Bld) 0.4 % Normal 0.2-2.0 [facility] Comment on above: Performed By: #### C BC ####[facility] Fwepjmxnzc2045[address] [place], [place] [address]Dr. Airam Tripathi EO # 0.2 103/ul Normal 0.0-0.7 [facility] Comment on above: Performed By: #### C BC ####[facility] Wyfdtxbznw4071 [place] [address]Dr. Airam Tripathi Eosinophils/100 WBC (Bld) 3.9 % Normal 0.9-7.0 [facility] Comment on above: Performed By: #### C BC ####[facility] Kpkjzkroiw495[address] [place], [place] [address]Dr. Airam Tripathi Erythrocyte distribution width (RBC) [Ratio] 13.9 % Normal 11.0-15.0 [facility] Comment on above: Performed By: #### C BC ####[facility] Qpwhmdyxno964[address] [place], [place] [address]Dr. Airam Tripathi Hematocrit (Bld) [Volume fraction] 32.7 % Critically low 36.0-48.0 [facility] Comment on above: Performed By: #### C BC ####[facility] Stmncrzkza5304[address] [place], [place] [address]Dr. Airam Tripathi Hemoglobin (Bld) [Mass/Vol] 10.7 g/dL Critically low 12.0-16.0 [facility] Comment on above: Performed By: #### C BC ####[facility] Pexnxiysiw306[address] [place], [place] [address]Dr. Airam Tripathi IG # 0.02 10e3/ul Normal 0.00-0.03 [facility] Comment on above: Performed By: #### C BC ####[facility] Jkusdraigz2665[address] [place], [place] [address]Dr. Airam Tripathi IG % 0.4 % Normal 0.0-0.5 [facility] Comment on above: Performed By: #### C BC ####[facility] Kvxfciacix9949[address] [place], [place] [address]Dr. Airam Tripathi LYMPH # 1.2 103/ul Normal 1.2-3.8 [facility] Comment on above: Performed By: #### C BC ####[facility] Mykzubqkzf0630[address] [place], [place] [address]Dr. Airam Tripathi Lymphocytes/100 WBC (Bld) 25.0 % Normal 20.5-60.0 [facility] Comment on above: Performed By: #### C BC ####[facility] Flheeivndi[address] [place] [address]Dr. Airam Tripathi MANUAL DIFF REQ NO Normal [facility] Comment on above: Performed By: #### C BC ####[facility] Bwopcisidy4[address] [place] [id number]. Airam Tripathi MCH (RBC) [Entitic mass] 30.7 pg Normal 26.7-34.0 [facility] Comment on above: Performed By: #### C BC ####[facility] Nzpqvgbekh2118 [place] [address]Dr. Airam Tripathi MCHC (RBC) [Mass/Vol] 32.7 g/dL Normal 29.9-35.2 [facility] Comment on above: Performed By: #### C BC ####[facility] Mxklpzzqli[address] [place], [place] [address]Dr. Airam Tripathi MCV (RBC) [Entitic vol] 93.7 fL Normal 81.0-99.0 [facility] Comment on above: Performed By: #### C BC ####[facility] Xeseydgdgd5[address] [place], [place] [address]Dr. Airam Tripathi MONO # 0.4 103/ul Normal 0.3-0.8 [facility] Comment on above: Performed By: #### C BC ####[facility] Mzevduxgih40[address] [place], [place] [address]Dr. Airam Tripathi Monocytes/100 WBC (Bld) 7.5 % Normal 1.7-12.0 [facility] Comment on above: Performed By: #### C BC ####[facility] Tirmgecjzp69[address] [place], [place] [address]DrKianna Tripathi NEUT # 3.1 103/ul Normal 1.4-6.5 [facility] Comment on above: Performed By: #### C BC ####[facility] Nybhtwetmq6894[address] [place], [place] [address]Dr. Airam Tripathi Neutrophils/100 WBC (Bld) 62.8 % Normal 43.0-75.0 [facility] Comment on above: Performed By: #### C BC ####[facility] Znmkflcyyw1900 [place] [address]Dr. Airam Tripathi Platelet mean volume (Bld) [Entitic vol] 9.5 fL Normal 9.5-13.5 [facility] Comment on above: Performed By: #### C BC ####[facility] Rqkqterjov8832 [place] [address]Dr. Airam Tripathi PLT 250 103/ul Normal 150-450 [facility] Comment on above: Performed By: #### C BC ####[facility] Vivovkskwg8130 [place] [address]Dr. Airam Tripathi RBC 3.49 106/ul Critically low 4.20-5.40 [facility] Comment on above: Performed By: #### C BC ####[facility] Uaxunfhdpn3944 [place] [address]Dr. Airam Tripathi WBC 4.9 103/ul Normal 4.0-11.0 [facility] Comment on above: Performed By: #### C BC ####[facility] Pyjlunjicg7698 [place] [address]DrKianna Tripathi PROF 14(COMP METB)on 022 Albumin [Mass/Vol] 3.3 g/dL Critically low 3.4-5.0 [facility] Comment on above: Performed By: #### C MP ####[facility] Zxobavrlzx6492 [place] [address]DrKianna Tripathi Albumin/Globulin [Mass ratio] 1.0 {ratio} Normal [facility] Comment on above: Performed By: #### C MP ####[facility] Cjnizenipa7580 [place] [address]DrKianna Tripathi ALP [Catalytic activity/Vol] 127 U/L Critically high 46-116 [facility] Comment on above: Performed By: #### C MP ####[facility] Ikbthyhibg9688 [place] [address]DrKianna Tripathi ALT [Catalytic activity/Vol] 22 U/L Normal 14-59 [facility] Comment on above: Performed By: #### C MP ####[facility] Kcubbugior4345 [place] [phone]. Airam Tripathi Anion gap [Moles/Vol] 11.9 mmol/L Normal [facility] Comment on above: Performed By: #### C MP ####[facility] Wpkydntnlk5716 [place] [address]Dr. Airam Tripathi AST [Catalytic activity/Vol] 21 U/L Normal 15-37 [facility] Comment on above: Performed By: #### C MP ####[facility] Uaajizauos8[address] [place] [address]Dr. Airam Tripathi Bilirubin [Mass/Vol] 0.3 mg/dL Normal 0.2-1.0 [facility] Comment on above: Performed By: #### C MP ####[facility] Fkgatluspi6978[address] [place], [place] [address]Dr. Airam Tripathi Calcium [Mass/Vol] 8.6 mg/dL Normal 8.5-10.1 [facility] Comment on above: Performed By: #### C MP ####[facility] Yeowlqfqar1790[address] [place], [place] [address]Dr. Airam Deuce Chloride [Moles/Vol] 105 mmol/L Normal 98-107 [facility] Comment on above: Performed By: #### C MP ####[facility] Qktngjflci5975[address] [place], [place] [address]Dr. Airam Tripathi CO2 [Moles/Vol] 23.6 mmol/L Normal 21.0-32.0 [facility] Comment on above: Performed By: #### C MP ####[facility] Ffckjlewhc030[address] [place], [place] [address]Dr. Airam Deuce Creatinine [Mass/Vol] 1.29 mg/dL Critically high 0.55-1.02 [facility] Comment on above: Performed By: #### C MP ####[facility] Aqvkrsashj6912[address] [place], [place] [address]Dr. Airam Deuce EGFR-AF SLOVENIAN 51 mL/min/1.73m2 Critically low >=60 [facility] Comment on above: Performed By: #### C MP ####[facility] Xvfbmhincs8624 [place] [phone]. Airam Tripathi EGFR-NON AF SLOVENIAN 42 mL/min/1.73m2 Critically low >=60 [facility] Comment on above: Performed By: #### C MP ####[facility] Iqujyyxssj5245 [place] [phone]. Airam Tripathi Globulin (S) [Mass/Vol] 3.2 g/dL Normal [facility] Comment on above: Performed By: #### C MP ####[facility] Yjzsompkov4788 [place] [address]Dr. Airam Tripathi Glucose [Mass/Vol] 94 mg/dL Normal 74-106 [facility] Comment on above: Performed By: #### C MP ####[facility] Udhmggborg6129 [place] [address]Dr. Airam Tripathi Potassium [Moles/Vol] 3.5 mmol/L Normal 3.5-5.1 [facility] Comment on above: Performed By: #### C MP ####[facility] Hkbaftqeax1456[address] [place], [place] [address]Dr. Airam Tripathi Protein [Mass/Vol] 6.5 g/dL Normal 6.4-8.2 [facility] Comment on above: Performed By: #### C MP ####[facility] Ouyfbkhigl490[address] [place], [place] [address]Dr. Airam Tripathi Sodium [Moles/Vol] 137 mmol/L Normal 136-145 [facility] Comment on above: Performed By: #### C MP ####[facility] Vzevnzkkqy7739[address] [place], [place] [address]Dr. Airam Tripathi Urea nitrogen [Mass/Vol] 37.0 mg/dL Critically high 7.0-18.0 [facility] Comment on above: Performed By: #### C MP ####[facility] Ubkacfqkbp5020[address] [place], [place] [address]Dr. Airam Tripathi Urea nitrogen/Creatinine [Mass ratio] 28.7 mg/mg Normal [facility] Comment on above: Performed By: #### C MP ####[facility] Otqzpwyqtx2283 [place] [phone]. Airam Tripathi OSMOLALITYon 02-20-2022 Osmolality [Osmolality] 283 mosm/kg Normal 275-295 [facility] Comment on above: Performed By: #### O SMO ####[facility] Nvnntvbexb0162 [place] [address]Dr. Airam Deuce CBC AUTO DIFFon 02-17-2022 BASO # 0.0 103/ul Normal 0.0-0.1 [facility] Comment on above: Performed By: #### C BC ####[facility] Nqashnvuae3309[address] [place], [place] [address]Dr. Airam Tripathi Basophils/100 WBC (Bld) 0.3 % Normal 0.2-2.0 [facility] Comment on above: Performed By: #### C BC ####[facility] Pxksfmhyrb9714[address] [place], [place] [address]Dr. Airam Tripathi EO # 0.1 103/ul Normal 0.0-0.7 [facility] Comment on above: Performed By: #### C BC ####[facility] Asbeyhirgz197[address] [place], [place] [address]Dr. Airam Tripathi Eosinophils/100 WBC (Bld) 1.6 % Normal 0.9-7.0 [facility] Comment on above: Performed By: #### C BC ####[facility] Kewgmseudz2439[address] [place], [place] [address]Dr. Airam Tripathi Erythrocyte distribution width (RBC) [Ratio] 13.4 % Normal 11.0-15.0 [facility] Comment on above: Performed By: #### C BC ####[facility] Yetqefstob753[address] [place], [place] [address]Dr. Airam Tripathi Hematocrit (Bld) [Volume fraction] 31.4 % Critically low 36.0-48.0 [facility] Comment on above: Performed By: #### C BC ####[facility] Sggfybcigd605[address] [place], [place] [address]Dr. Airam Tripathi Hemoglobin (Bld) [Mass/Vol] 10.0 g/dL Critically low 12.0-16.0 [facility] Comment on above: Performed By: #### C BC ####[facility] Zetcezjood3230 [place] [address]Dr. Airam Tripathi IG # 0.03 10e3/ul Normal 0.00-0.03 [facility] Comment on above: Performed By: #### C BC ####[facility] Sxfphvecgh9164 [place] [address]Dr. Airam Tripathi IG % 0.4 % Normal 0.0-0.5 [facility] Comment on above: Performed By: #### C BC ####[facility] Tfuwhvlobb045[address] [place], [place] [address]Dr. Airam Tripathi LYMPH # 1.6 103/ul Normal 1.2-3.8 [facility] Comment on above: Performed By: #### C BC ####[facility] Dwldcyqizc1314[address] [place], [place] [address]Dr. Airam Tripathi Lymphocytes/100 WBC (Bld) 24.5 % Normal 20.5-60.0 [facility] Comment on above: Performed By: #### C BC ####[facility] Cepiwlvgai9587[address] [place], [place] [address]Dr. Airam Tripathi MANUAL DIFF REQ NO Normal [facility] Comment on above: Performed By: #### C BC ####[facility] Zqulnjwcoa5196[address] [place], [place] [address]Dr. Airam Tripathi MCH (RBC) [Entitic mass] 30.2 pg Normal 26.7-34.0 [facility] Comment on above: Performed By: #### C BC ####[facility] Botlyrcpln7525[address] [place], [place] [address]Dr. Airam Tripathi MCHC (RBC) [Mass/Vol] 31.8 g/dL Normal 29.9-35.2 [facility] Comment on above: Performed By: #### C BC ####[facility] Neyrayffph3665[address] [place], [place] [address]Dr. Airam Tripathi MCV (RBC) [Entitic vol] 94.9 fL Normal 81.0-99.0 [facility] Comment on above: Performed By: #### C BC ####[facility] Poswexdyif4439 [place] [phone]. Airam Tripathi MONO # 0.4 103/ul Normal 0.3-0.8 [facility] Comment on above: Performed By: #### C BC ####[facility] Ogqaizbwee9546 [place] [phone]. Airam Tripathi Monocytes/100 WBC (Bld) 5.8 % Normal 1.7-12.0 [facility] Comment on above: Performed By: #### C BC ####[facility] Uprthzqndt9579 [place] [phone]. Airam Tripathi NEUT # 4.5 103/ul Normal 1.4-6.5 [facility] Comment on above: Performed By: #### C BC ####[facility] Isnkydihqe825822 [address] [place], [place] [address]Dr. Airam Tripathi Neutrophils/100 WBC (Bld) 67.4 % Normal 43.0-75.0 [facility] Comment on above: Performed By: #### C BC ####[facility] Ezdecvegwl[address] [place], [place] [address]Dr. Airam Tripathi Platelet mean volume (Bld) [Entitic vol] 9.6 fL Normal 9.5-13.5 [facility] Comment on above: Performed By: #### C BC ####[facility] Ydldrsewcx2556 [place] [phone]. Airam Tripathi PLT 251 103/ul Normal 150-450 [facility] Comment on above: Performed By: #### C BC ####[facility] Imxacctdzj0656 [place] [phone]. Airam Tripathi RBC 3.31 106/ul Critically low 4.20-5.40 [facility] Comment on above: Performed By: #### C BC ####[facility] Glqzkxolav2153 [place] [phone]. Airam Tripathi WBC 6.7 103/ul Normal 4.0-11.0 [facility] Comment on above: Performed By: #### C BC ####[facility] Gyuvbbntfx6090 [place] [address]Dr. Airam Tripathi PROF 14(COMP METB)on 022 Albumin [Mass/Vol] 3.5 g/dL Normal 3.4-5.0 [facility] Comment on above: Performed By: #### C MP ####[facility] Vmayoorasg6783 [place] [address]Dr. Airam Tripathi Albumin/Globulin [Mass ratio] 1.2 {ratio} Normal [facility] Comment on above: Performed By: #### C MP ####[facility] Ywneflcbca5096[address] [place], [place] [address]Dr. Airam Tripathi ALP [Catalytic activity/Vol] 130 U/L Critically high 46-116 [facility] Comment on above: Performed By: #### C MP ####[facility] Vqiyajufsr90232[address] [place], [place] [address]Dr. Airam Tripathi ALT [Catalytic activity/Vol] 18 U/L Normal 14-59 [facility] Comment on above: Performed By: #### C MP ####[facility] Osfxoixgbi944[address] [place], [place] [address]Dr. Airam Tripathi Anion gap [Moles/Vol] 14.0 mmol/L Normal [facility] Comment on above: Performed By: #### C MP ####[facility] Nbwgtzkkxr0676[address] [place], [place] [address]Dr. Airam Tripathi AST [Catalytic activity/Vol] 20 U/L Normal 15-37 [facility] Comment on above: Performed By: #### C MP ####[facility] Nwdlwblckm5746[address] [place], [place] [address]Dr. Airam Tripathi Bilirubin [Mass/Vol] 0.3 mg/dL Normal 0.2-1.0 [facility] Comment on above: Performed By: #### C MP ####[facility] Qqvesvrwjb369[address] [place], [place] [address]Dr. Airam Tripathi Calcium [Mass/Vol] 8.5 mg/dL Normal 8.5-10.1 [facility] Comment on above: Performed By: #### C MP ####[facility] Jssfpztasr9626 [place] [address]Dr. Airam Tripathi Chloride [Moles/Vol] 100 mmol/L Normal 98-107 [facility] Comment on above: Performed By: #### C MP ####[facility] Gwntejjlio8555 [place] [phone]. Airam Tripathi CO2 [Moles/Vol] 22.7 mmol/L Normal 21.0-32.0 [facility] Comment on above: Performed By: #### C MP ####[facility] Kwkegndbrf5148[address] [place], [place] [address]Dr. Airam Tripathi Creatinine [Mass/Vol] 1.28 mg/dL Critically high 0.55-1.02 [facility] Comment on above: Performed By: #### C MP ####[facility] Widzyygrwv1448[address] [place], [place] [address]Dr. Airam Tripathi EGFR-AF SLOVENIAN 52 mL/min/1.73m2 Critically low >=60 [facility] Comment on above: Performed By: #### C MP ####[facility] Uubztfbumm4680[address] [place], [place] [address]Dr. Airam Tripathi EGFR-NON AF SLOVENIAN 43 mL/min/1.73m2 Critically low >=60 [facility] Comment on above: Performed By: #### C MP ####[facility] Tonetjmnxd085[address] [place], [place] [address]Dr. Airam Tripathi Globulin (S) [Mass/Vol] 2.9 g/dL Normal [facility] Comment on above: Performed By: #### C MP ####[facility] Syijvxmkxq559[address] [place], [place] [address]Dr. Airam Tripathi Glucose [Mass/Vol] 93 mg/dL Normal 74-106 [facility] Comment on above: Performed By: #### C MP ####[facility] Bmfcatznjy927[address] [place], [place] [address]Dr. Airam Tripathi Potassium [Moles/Vol] 3.7 mmol/L Normal 3.5-5.1 [facility] Comment on above: Performed By: #### C MP ####[facility] Qqayfkkqhn8132 [place] [address]Dr. Airam Tripathi Protein [Mass/Vol] 6.4 g/dL Normal 6.4-8.2 [facility] Comment on above: Performed By: #### C MP ####[facility] Ljgvmtvaav4678[address] [place], [place] [address]Dr. Airam Tripathi Sodium [Moles/Vol] 133 mmol/L Critically low 136-145 [facility] Comment on above: Performed By: #### C MP ####[facility] Ypwprqfemh9235[address] [place], [place] [address]Dr. Airam Deuce Urea nitrogen [Mass/Vol] 44.0 mg/dL Critically high 7.0-18.0 [facility] Comment on above: Performed By: #### C MP ####[facility] Kqntiykfln5716[address] [place], [place] [address]Dr. Airam Deuce Urea nitrogen/Creatinine [Mass ratio] 34.4 mg/mg Normal [facility] Comment on above: Performed By: #### C MP ####[facility] Xkrvwqtfmf3417[address] [place], [place] [address]Dr. Airam Tripathi OSMOLALITYon 02-10-2022 Osmolality [Osmolality] 288 mosm/kg Normal 275-295 [facility] Comment on above: Performed By: #### O SMO ####[facility] Cjpshosuyw4550[address] [place], [place] [address]Dr. Airam Deuce CBC AUTO DIFFon 02-08-2022 BASO # 0.0 103/ul Normal 0.0-0.1 [facility] Comment on above: Performed By: #### C BC ####[facility] Xsduzclzsk178[address] [place], [place] [address]Dr. Airam Deuce Basophils/100 WBC (Bld) 0.3 % Normal 0.2-2.0 [facility] Comment on above: Performed By: #### C BC ####[facility] Hqpqfzkufn802[address] [place], [place] [address]Dr. Airam Tripathi EO # 0.2 103/ul Normal 0.0-0.7 [facility] Comment on above: Performed By: #### C BC ####[facility] Jqisdsjtxh3874 [place] [phone]. Airam Tripathi Eosinophils/100 WBC (Bld) 2.1 % Normal 0.9-7.0 [facility] Comment on above: Performed By: #### C BC ####[facility] Uhsbzbcqpc5613 [place] [phone]. Airam Tripathi Erythrocyte distribution width (RBC) [Ratio] 13.4 % Normal 11.0-15.0 [facility] Comment on above: Performed By: #### C BC ####[facility] Lgttqypcaf6419[address] [place], [place] [address]Dr. Airam Tripathi Hematocrit (Bld) [Volume fraction] 35.1 % Critically low 36.0-48.0 [facility] Comment on above: Performed By: #### C BC ####[facility] Gzgrkdzogl7026[address] [place], [place] [address]Dr. Airam Tripathi Hemoglobin (Bld) [Mass/Vol] 10.9 g/dL Critically low 12.0-16.0 [facility] Comment on above: Performed By: #### C BC ####[facility] Fcuhbrlhpf0627[address] [place], [place] [address]Dr. Airam Tripathi IG # 0.03 10e3/ul Normal 0.00-0.03 [facility] Comment on above: Performed By: #### C BC ####[facility] Zkojjhamhy705[address] [place], [place] [address]Dr. Airam Tripathi IG % 0.3 % Normal 0.0-0.5 [facility] Comment on above: Performed By: #### C BC ####[facility] Bpanvjzuah2127[address] [place], [place] [address]Dr. Airam Tripathi LYMPH # 1.3 103/ul Normal 1.2-3.8 [facility] Comment on above: Performed By: #### C BC ####[facility] Zgmvumjbjw1657[address] [place], [place] [address]Dr. Airam Tripathi Lymphocytes/100 WBC (Bld) 13.1 % Critically low 20.5-60.0 [facility] Comment on above: Performed By: #### C BC ####[facility] Sjdkhvjuml6097 [place] [address]Dr. Airam Tripathi MANUAL DIFF REQ NO Normal [facility] Comment on above: Performed By: #### C BC ####[facility] Rcrzwikkyd7838 [place] [address]Dr. Airam Tripathi MCH (RBC) [Entitic mass] 30.4 pg Normal 26.7-34.0 [facility] Comment on above: Performed By: #### C BC ####[facility] Zlsthrajnt2619 [place] [address]Dr. Airam Tripathi MCHC (RBC) [Mass/Vol] 31.1 g/dL Normal 29.9-35.2 [facility] Comment on above: Performed By: #### C BC ####[facility] Ougwjxfmxo688[address] [place], [place] [address]Dr. Airam Tripathi MCV (RBC) [Entitic vol] 98.0 fL Normal 81.0-99.0 [facility] Comment on above: Performed By: #### C BC ####[facility] Ixtizbdrrl687[address] [place], [place] [address]DrKianna Tripathi MONO # 0.5 103/ul Normal 0.3-0.8 [facility] Comment on above: Performed By: #### C BC ####[facility] Sjsbwdpysa822[address] [place], [place] [address]Dr. Airam Tripathi Monocytes/100 WBC (Bld) 4.7 % Normal 1.7-12.0 [facility] Comment on above: Performed By: #### C BC ####[facility] Kuaptajlwt8344[address] [place], [place] [address]DrKianna Tripathi NEUT # 7.7 103/ul Critically high 1.4-6.5 [facility] Comment on above: Performed By: #### C BC ####[facility] Bsqdghcgah856[address] [place], [place] [address]DrKianna Tripathi Neutrophils/100 WBC (Bld) 79.5 % Critically high 43.0-75.0 [facility] Comment on above: Performed By: #### C BC ####[facility] Dshaqhqgfq2344 [place] [address]Dr. Airam Tripathi Platelet mean volume (Bld) [Entitic vol] 9.6 fL Normal 9.5-13.5 [facility] Comment on above: Performed By: #### C BC ####[facility] Nclspohqiu7552 [place] [address]Dr. Airam Tripathi PLT 268 103/ul Normal 150-450 [facility] Comment on above: Performed By: #### C BC ####[facility] Asdnsjnvrl3323 [place] [phone]. Airam Tripathi RBC 3.58 106/ul Critically low 4.20-5.40 [facility] Comment on above: Performed By: #### C BC ####[facility] Vqrlgiunjz2279 [place] [address]DrKianna Tripathi WBC 9.7 103/ul Normal 4.0-11.0 [facility] Comment on above: Performed By: #### C BC ####[facility] Zehtmthdqs2064 [place] [phone] Tripathi PROF 14(COMP METB)on 022 Albumin [Mass/Vol] 3.6 g/dL Normal 3.4-5.0 [facility] Comment on above: Performed By: #### C MP ####[facility] Ejlmscqgct8884 [place] [address]DrKianna Tripathi Albumin/Globulin [Mass ratio] 1.1 {ratio} Normal [facility] Comment on above: Performed By: #### C MP ####[facility] Dbjvoistry9046 [place] [phone] Tripathi ALP [Catalytic activity/Vol] 131 U/L Critically high 46-116 [facility] Comment on above: Performed By: #### C MP ####[facility] Smgofsdacx4723 [place] [address]DrKianna Tripathi ALT [Catalytic activity/Vol] 22 U/L Normal 14-59 [facility] Comment on above: Performed By: #### C MP ####[facility] Snuuffbekf4694 [place] [phone]. Airam Tripathi Anion gap [Moles/Vol] 13.3 mmol/L Normal [facility] Comment on above: Performed By: #### C MP ####[facility] Twrsertrlz5467 [place] [phone]. Airam Tripathi AST [Catalytic activity/Vol] 23 U/L Normal 15-37 [facility] Comment on above: Performed By: #### C MP ####[facility] Cazfwktnip7961 [place] [address]Dr. Airam Deuce Bilirubin [Mass/Vol] 0.3 mg/dL Normal 0.2-1.0 [facility] Comment on above: Performed By: #### C MP ####[facility] Oiysatntga4[address] [place], [place] [address]Dr. Airam Tripathi Calcium [Mass/Vol] 8.7 mg/dL Normal 8.5-10.1 [facility] Comment on above: Performed By: #### C MP ####[facility] Nmwijxgnhf124[address] [place], [place] [address]Dr. Selenaneil Tripathi Chloride [Moles/Vol] 104 mmol/L Normal 98-107 [facility] Comment on above: Performed By: #### C MP ####[facility] Zzxbozmequ24[address] [place], [place] [address]Dr. Selenaneil Deuce CO2 [Moles/Vol] 22.0 mmol/L Normal 21.0-32.0 [facility] Comment on above: Performed By: #### C MP ####[facility] Sovhphylea1799[address] [place], [place] [address]Dr. Selenaneil Deuce Creatinine [Mass/Vol] 1.20 mg/dL Critically high 0.55-1.02 [facility] Comment on above: Performed By: #### C MP ####[facility] Wlffunbqpq0381 [place] [address]Dr. Selenaneil Deuce EGFR-AF SLOVENIAN 56 mL/min/1.73m2 Critically low >=60 [facility] Comment on above: Performed By: #### C MP ####[facility] Qerexmrwfl0133 [place] [id number]. Airam Tripathi EGFR-NON AF SLOVENIAN 46 mL/min/1.73m2 Critically low >=60 [facility] Comment on above: Performed By: #### C MP ####[facility] Recdbwmpye0148 [place] [phone]. Airam Tripathi Globulin (S) [Mass/Vol] 3.2 g/dL Normal [facility] Comment on above: Performed By: #### C MP ####[facility] Ogffgrjvnr4533 [place] [address]Dr. Airam Tripathi Glucose [Mass/Vol] 98 mg/dL Normal 74-106 [facility] Comment on above: Performed By: #### C MP ####[facility] Xxaeujsgvf6586 [place] [address]Dr. Airam Tripathi Potassium [Moles/Vol] 4.3 mmol/L Normal 3.5-5.1 [facility] Comment on above: Performed By: #### C MP ####[facility] Earklrhjbo4449 [place] [address]Dr. Airam Tripathi Protein [Mass/Vol] 6.8 g/dL Normal 6.4-8.2 [facility] Comment on above: Performed By: #### C MP ####[facility] Iettvkgboo7791 [place] [address]Dr. Airam Tripathi Sodium [Moles/Vol] 135 mmol/L Critically low 136-145 [facility] Comment on above: Performed By: #### C MP ####[facility] Pbtnqvquto7265 [place] [address]Dr. Airam Tripathi Urea nitrogen [Mass/Vol] 33.0 mg/dL Critically high 7.0-18.0 [facility] Comment on above: Performed By: #### C MP ####[facility] Hywmkdhtcd0664 [place] [address]Dr. Airam Deuce Urea nitrogen/Creatinine [Mass ratio] 27.5 mg/mg Normal [facility] Comment on above: Performed By: #### C MP ####[facility] Ntbccphbci9338 [place] [address]Dr. Airam Tripathi OSMOLALITYon 02-07-2022 Osmolality [Osmolality] 299 mosm/kg Critically high 275-295 [facility] Comment on above: Performed By: #### O SMO ####[facility] Jhccyvhsln694422 [address] [address] [place], [place] [address]Dr. Airam Deuce CBC AUTO DIFFon 02-03-2022 BASO # 0.0 103/ul Normal 0.0-0.1 [facility] Comment on above: Performed By: #### C BC ####[facility] Fszbpjkoda[address] [place], [place] [address]Dr. Airam Tripathi Basophils/100 WBC (Bld) 0.4 % Normal 0.2-2.0 [facility] Comment on above: Performed By: #### C BC ####[facility] Gwbbyskntt[address] [place], [place] [address]Dr. Airam Tripathi EO # 0.3 103/ul Normal 0.0-0.7 [facility] Comment on above: Performed By: #### C BC ####[facility] Kssypmiukx10[address] [place], [place] [address]Dr. Airam Tripathi Eosinophils/100 WBC (Bld) 3.6 % Normal 0.9-7.0 [facility] Comment on above: Performed By: #### C BC ####[facility] Sricjvslbf09[address] [place], [place] [address]Dr. Airam Tripathi Erythrocyte distribution width (RBC) [Ratio] 13.2 % Normal 11.0-15.0 [facility] Comment on above: Performed By: #### C BC ####[facility] Ogpuvemkge47[address] [place], [place] [address]Dr. Airam Tripathi Hematocrit (Bld) [Volume fraction] 32.0 % Critically low 36.0-48.0 [facility] Comment on above: Performed By: #### C BC ####[facility] Kakrrvzbsa27[address] [place], [place] [address]Dr. Airam Tripathi Hemoglobin (Bld) [Mass/Vol] 9.8 g/dL Critically low 12.0-16.0 [facility] Comment on above: Performed By: #### C BC ####[facility] Xiljrijkkc3698 [place] [address]DrKianna Tripathi IG # 0.03 10e3/ul Normal 0.00-0.03 [facility] Comment on above: Performed By: #### C BC ####[facility] Gcjskhdwep5839 [place] [address]DrKianna Tripathi IG % 0.4 % Normal 0.0-0.5 [facility] Comment on above: Performed By: #### C BC ####[facility] Yudgwxvcaz663[address] [place], [place] [address]DrKianna Tripathi LYMPH # 1.7 103/ul Normal 1.2-3.8 [facility] Comment on above: Performed By: #### C BC ####[facility] Tvowgfcjik8273 [place] [address]DrKianna Tripathi Lymphocytes/100 WBC (Bld) 24.8 % Normal 20.5-60.0 [facility] Comment on above: Performed By: #### C BC ####[facility] Zkbwrpxufp9170 [place] [address]DrKianna Tripathi MANUAL DIFF REQ NO Normal [facility] Comment on above: Performed By: #### C BC ####[facility] Kgycyuhvqr1149[address] [place], [place] [address]DrKianna Tripathi MCH (RBC) [Entitic mass] 29.6 pg Normal 26.7-34.0 [facility] Comment on above: Performed By: #### C BC ####[facility] Lkrchvevyd0669 [place] [id number] Tripathi MCHC (RBC) [Mass/Vol] 30.6 g/dL Normal 29.9-35.2 [facility] Comment on above: Performed By: #### C BC ####[facility] Aztfszpaqd8208 [place] [address]DrKianna Tripathi MCV (RBC) [Entitic vol] 96.7 fL Normal 81.0-99.0 [facility] Comment on above: Performed By: #### C BC ####[facility] Ldxsmysuin0644 [place] [id number]. Aiarm Tripathi MONO # 0.4 103/ul Normal 0.3-0.8 [facility] Comment on above: Performed By: #### C BC ####[facility] Bklpzcjnus5411 [place] [id number]. Airam Tripathi Monocytes/100 WBC (Bld) 6.3 % Normal 1.7-12.0 [facility] Comment on above: Performed By: #### C BC ####[facility] Cgzvfqxaup8887[address] [place], [place] [address]Dr. Airam Tripathi NEUT # 4.5 103/ul Normal 1.4-6.5 [facility] Comment on above: Performed By: #### C BC ####[facility] Frwhktqndn1550[address] [place], [place] [address]Dr. Airam Tripathi Neutrophils/100 WBC (Bld) 64.5 % Normal 43.0-75.0 [facility] Comment on above: Performed By: #### C BC ####[facility] Rpegsrujsa4224 [place] [address]Dr. Airam Tripathi Platelet mean volume (Bld) [Entitic vol] 9.3 fL Critically low 9.5-13.5 [facility] Comment on above: Performed By: #### C BC ####[facility] Qoetwpgjfz6246 [place] [address]Dr. Airam Tripathi PLT 243 103/ul Normal 150-450 [facility] Comment on above: Performed By: #### C BC ####[facility] Bqlgslwiah1569 [place] [id number]. Airam Tripathi RBC 3.31 106/ul Critically low 4.20-5.40 [facility] Comment on above: Performed By: #### C BC ####[facility] Irdouhxwsa4829 [place] [phone]. Airam Tripathi WBC 7.0 103/ul Normal 4.0-11.0 [facility] Comment on above: Performed By: #### C BC ####[facility] Bxnurxjfuc2824 [place] [address]Dr. Airam Tripathi PROF 14(COMP METB)on 022 Albumin [Mass/Vol] 3.3 g/dL Critically low 3.4-5.0 [facility] Comment on above: Performed By: #### C MP ####[facility] Smdryioody9487 [place] [address]Dr. Airam Tripathi Albumin/Globulin [Mass ratio] 1.1 {ratio} Normal [facility] Comment on above: Performed By: #### C MP ####[facility] Ejkzedyahe4347 [place] [address]Dr. Airam Tripathi ALP [Catalytic activity/Vol] 126 U/L Critically high 46-116 [facility] Comment on above: Performed By: #### C MP ####[facility] Apmzseesyy70[address] [place], [place] [address]Dr. Airam Tripathi ALT [Catalytic activity/Vol] 21 U/L Normal 14-59 [facility] Comment on above: Performed By: #### C MP ####[facility] Szakucbjrh5184[address] [place], [place] [address]Dr. Airam Tripathi Anion gap [Moles/Vol] 11.8 mmol/L Normal [facility] Comment on above: Performed By: #### C MP ####[facility] Kdiywqmymk36[address] [place], [place] [address]Dr. Airam Tripathi AST [Catalytic activity/Vol] 22 U/L Normal 15-37 [facility] Comment on above: Performed By: #### C MP ####[facility] Yfcvdaskcn9175[address] [place], [place] [address]Dr. Airam Tripathi Bilirubin [Mass/Vol] 0.3 mg/dL Normal 0.2-1.0 [facility] Comment on above: Performed By: #### C MP ####[facility] Ueopmmqfuq7101[address] [place], [place] [address]Dr. Airam Tripathi Calcium [Mass/Vol] 8.7 mg/dL Normal 8.5-10.1 [facility] Comment on above: Performed By: #### C MP ####[facility] Phgqguugbo9273 [place] [address]Dr. Airam Tripathi Chloride [Moles/Vol] 102 mmol/L Normal 98-107 [facility] Comment on above: Performed By: #### C MP ####[facility] Cniiafljhq1594 [place] [id number]. Airam Tripathi CO2 [Moles/Vol] 25.5 mmol/L Normal 21.0-32.0 [facility] Comment on above: Performed By: #### C MP ####[facility] Nfsjsrrpnm7477 [place] [address]Dr. Airam Tripathi Creatinine [Mass/Vol] 1.43 mg/dL Critically high 0.55-1.02 [facility] Comment on above: Performed By: #### C MP ####[facility] Mewzqnpomo22[address] [place], [place] [address]Dr. Airam Tripathi EGFR-AF SLOVENIAN 46 mL/min/1.73m2 Critically low >=60 [facility] Comment on above: Performed By: #### C MP ####[facility] Aocdfzggpd0590[address] [place], [place] [address]Dr. Airam Tripathi EGFR-NON AF SLOVENIAN 38 mL/min/1.73m2 Critically low >=60 [facility] Comment on above: Performed By: #### C MP ####[facility] Lsdgmocfoo7307 [place] [address]Dr. Airam Tripathi Globulin (S) [Mass/Vol] 2.9 g/dL Normal [facility] Comment on above: Performed By: #### C MP ####[facility] Whwwcwvaaz0889 [place] [phone]. Airam Tripathi Glucose [Mass/Vol] 83 mg/dL Normal 74-106 [facility] Comment on above: Performed By: #### C MP ####[facility] Zgwnvcvnwb9977 [place] [address]Dr. Airam Tripathi Potassium [Moles/Vol] 4.3 mmol/L Normal 3.5-5.1 [facility] Comment on above: Performed By: #### C MP ####[facility] Eqjxjkehdz2270 [place] [address]Dr. Airam Tripathi Protein [Mass/Vol] 6.2 g/dL Critically low 6.4-8.2 [facility] Comment on above: Performed By: #### C MP ####[facility] Xsprnwuefq4130[address] [place], [place] [address]Dr. Airam Tripathi Sodium [Moles/Vol] 135 mmol/L Critically low 136-145 [facility] Comment on above: Performed By: #### C MP ####[facility] Wuuvafvhfc7445[address] [place], [place] [address]Dr. Airam Deuce Urea nitrogen [Mass/Vol] 39.0 mg/dL Critically high 7.0-18.0 [facility] Comment on above: Performed By: #### C MP ####[facility] Zfbuadojub8548[address] [place], [place] [address]Dr. Airam Deuce Urea nitrogen/Creatinine [Mass ratio] 27.3 mg/mg Normal [facility] Comment on above: Performed By: #### C MP ####[facility] Tbzjkfgohk7266[address] [place], [place] [address]Dr. Airam Tripathi OSMOLALITYon 02-02-2022 Osmolality [Osmolality] 292 mosm/kg Normal 275-295 [facility] Comment on above: Performed By: #### O SMO ####[facility] Lqfgykzwec5415[address] [place], [place] [address]Dr. Airam Tripathi CBC AUTO DIFFon 01-27-2022 BASO # 0.0 103/ul Normal 0.0-0.1 [facility] Comment on above: Performed By: #### C BC ####[facility] Qdjmdjsszb9108[address] [place], [place] [address]Dr. Airam Deuce Basophils/100 WBC (Bld) 0.4 % Normal 0.2-2.0 [facility] Comment on above: Performed By: #### C BC ####[facility] Yfzzzswitb3655[address] [place], [place] [address]Dr. Airam Deuce EO # 0.2 103/ul Normal 0.0-0.7 [facility] Comment on above: Performed By: #### C BC ####[facility] Mrrjafihpc4844 [place] [address]Dr. Airam Tripathi Eosinophils/100 WBC (Bld) 3.4 % Normal 0.9-7.0 [facility] Comment on above: Performed By: #### C BC ####[facility] Cjqmmsqnvy8676[address] [place], [place] [address]Dr. Airam Tripathi Erythrocyte distribution width (RBC) [Ratio] 13.1 % Normal 11.0-15.0 [facility] Comment on above: Performed By: #### C BC ####[facility] Eslambaldd5634[address] [place], [place] [address]Dr. Airam Tripathi Hematocrit (Bld) [Volume fraction] 31.6 % Critically low 36.0-48.0 [facility] Comment on above: Performed By: #### C BC ####[facility] Vygumziybg676[address] [place], [place] [address]Dr. Airam Tripathi Hemoglobin (Bld) [Mass/Vol] 9.9 g/dL Critically low 12.0-16.0 [facility] Comment on above: Performed By: #### C BC ####[facility] Hfiocmxpay282[address] [place], [place] [address]Dr. Airam Tripathi IG # 0.02 10e3/ul Normal 0.00-0.03 [facility] Comment on above: Performed By: #### C BC ####[facility] Bfdvrpvwgr8338[address] [place], [place] [address]Dr. Airam Tripathi IG % 0.4 % Normal 0.0-0.5 [facility] Comment on above: Performed By: #### C BC ####[facility] Mmcmzcsmkw188[address] [place], [place] [address]Dr. Airam Tripathi LYMPH # 1.0 103/ul Critically low 1.2-3.8 [facility] Comment on above: Performed By: #### C BC ####[facility] Dtdykcyfkt4906[address] [place], [place] [address]Dr. Airam Tripathi Lymphocytes/100 WBC (Bld) 17.4 % Critically low 20.5-60.0 [facility] Comment on above: Performed By: #### C BC ####[facility] Uacmxoqxqc2831 [place] [address]DrKianna Tripathi MANUAL DIFF REQ NO Normal [facility] Comment on above: Performed By: #### C BC ####[facility] Culqepfdkp7326 [place] [address]DrKianna Tripathi MCH (RBC) [Entitic mass] 30.1 pg Normal 26.7-34.0 [facility] Comment on above: Performed By: #### C BC ####[facility] Rnvtnhulrl4050[address] [place], [place] [address]DrKianna Tripathi MCHC (RBC) [Mass/Vol] 31.3 g/dL Normal 29.9-35.2 [facility] Comment on above: Performed By: #### C BC ####[facility] Nkjclqbngj1175[address] [place], [place] [address]DrKianna Tripathi MCV (RBC) [Entitic vol] 96.0 fL Normal 81.0-99.0 [facility] Comment on above: Performed By: #### C BC ####[facility] Bfxhokbflh0809[address] [place], [place] [address]DrKianna Tripathi MONO # 0.5 103/ul Normal 0.3-0.8 [facility] Comment on above: Performed By: #### C BC ####[facility] Abyxudybsm9608[address] [place], [place] [address]DrKianna Tripathi Monocytes/100 WBC (Bld) 8.6 % Normal 1.7-12.0 [facility] Comment on above: Performed By: #### C BC ####[facility] Hwbucolain045[address] [place], [place] [address]DrKianna Tripathi NEUT # 3.9 103/ul Normal 1.4-6.5 [facility] Comment on above: Performed By: #### C BC ####[facility] Ornfmnikoa7925[address] [place], [place] [address]DrKianna Tripathi Neutrophils/100 WBC (Bld) 69.8 % Normal 43.0-75.0 [facility] Comment on above: Performed By: #### C BC ####[facility] Uiybfboidf1181 [place] [address]DrKianna Tripathi Platelet mean volume (Bld) [Entitic vol] 9.6 fL Normal 9.5-13.5 [facility] Comment on above: Performed By: #### C BC ####[facility] Mulqkvhplx4773 [place] [address]DrKianna Tripathi PLT 228 103/ul Normal 150-450 [facility] Comment on above: Performed By: #### C BC ####[facility] Txxacsbohk0938 [place] [address]Dr. Airam Tripathi RBC 3.29 106/ul Critically low 4.20-5.40 [facility] Comment on above: Performed By: #### C BC ####[facility] Qmsxboemjt014[address] [place], [place] [address]DrKianna Tripathi WBC 5.6 103/ul Normal 4.0-11.0 [facility] Comment on above: Performed By: #### C BC ####[facility] Oztkodnozt[address] [place], [place] [address]DrKianna Tripathi PROF 14(COMP METB)on 022 Albumin [Mass/Vol] 3.1 g/dL Critically low 3.4-5.0 [facility] Comment on above: Performed By: #### C MP ####[facility] Punncyqjhc4375[address] [place], [place] [address]DrKianna Tripathi Albumin/Globulin [Mass ratio] 1.0 {ratio} Normal [facility] Comment on above: Performed By: #### C MP ####[facility] Djuvjlcclc1838[address] [place], [place] [address]DrKianna Tripathi ALP [Catalytic activity/Vol] 131 U/L Critically high 46-116 [facility] Comment on above: Performed By: #### C MP ####[facility] Dnhccgonvu5512[address] [place], [place] [address]DrKianna Tripathi ALT [Catalytic activity/Vol] 19 U/L Normal 14-59 [facility] Comment on above: Performed By: #### C MP ####[facility] Rnmkwuorvp5141 [place] [address]Dr. Airam Tripathi Anion gap [Moles/Vol] 12.9 mmol/L Normal [facility] Comment on above: Performed By: #### C MP ####[facility] Zbbsqfmcbb8539 [place] [address]Dr. Airam Deuce AST [Catalytic activity/Vol] 21 U/L Normal 15-37 [facility] Comment on above: Performed By: #### C MP ####[facility] Epqhkyphoc060022 [address] [place], [place] [address]Dr. Selenaneil Deuce Bilirubin [Mass/Vol] 0.2 mg/dL Normal 0.2-1.0 [facility] Comment on above: Performed By: #### C MP ####[facility] Dlvcqttzto3038[address] [place], [place] [address]Dr. Selenaneil Deuce Calcium [Mass/Vol] 8.4 mg/dL Critically low 8.5-10.1 [facility] Comment on above: Performed By: #### C MP ####[facility] Znpxunsslw434[address] [place], [place] [address]Dr. Selenaneil Tripathi Chloride [Moles/Vol] 103 mmol/L Normal 98-107 [facility] Comment on above: Performed By: #### C MP ####[facility] Saybevvphy9970[address] [place], [place] [address]Dr. Selenaneil Deuce CO2 [Moles/Vol] 23.7 mmol/L Normal 21.0-32.0 [facility] Comment on above: Performed By: #### C MP ####[facility] Jqbvyqhhmi9544[address] [place], [place] [address]Dr. Selenaneil Deuce Creatinine [Mass/Vol] 1.37 mg/dL Critically high 0.55-1.02 [facility] Comment on above: Performed By: #### C MP ####[facility] Vvzugrzuiv3837[address] [place], [place] [address]Dr. Selenaneil Deuce EGFR-AF SLOVENIAN 48 mL/min/1.73m2 Critically low >=60 [facility] Comment on above: Performed By: #### C MP ####[facility] Nqwtcchjng6518 [place] [address]Dr. Airam Tripathi EGFR-NON AF SLOVENIAN 39 mL/min/1.73m2 Critically low >=60 [facility] Comment on above: Performed By: #### C MP ####[facility] Dhceputqwh7874 [place] [address]Dr. Airam Deuce Globulin (S) [Mass/Vol] 3.1 g/dL Normal [facility] Comment on above: Performed By: #### C MP ####[facility] Qgnhkrcjvt7608[address] [place], [place] [address]Dr. Airam Tripathi Glucose [Mass/Vol] 88 mg/dL Normal 74-106 [facility] Comment on above: Performed By: #### C MP ####[facility] Czndztwnzg8964[address] [place], [place] [address]Dr. Airam Deuce Potassium [Moles/Vol] 4.6 mmol/L Normal 3.5-5.1 [facility] Comment on above: Performed By: #### C MP ####[facility] Ikvymzdvax9813[address] [place], [place] [address]Dr. Airam Deuce Protein [Mass/Vol] 6.2 g/dL Critically low 6.4-8.2 [facility] Comment on above: Performed By: #### C MP ####[facility] Ufgpdxvnqz5917[address] [place], [place] [address]Dr. Airam Tripathi Sodium [Moles/Vol] 135 mmol/L Critically low 136-145 [facility] Comment on above: Performed By: #### C MP ####[facility] Qnfzvylbzy115[address] [place], [place] [address]Dr. Airam Deuce Urea nitrogen [Mass/Vol] 34.0 mg/dL Critically high 7.0-18.0 [facility] Comment on above: Performed By: #### C MP ####[facility] Bisvkyfclg90[address] [place], [place] [address]Dr. Airam Deuce Urea nitrogen/Creatinine [Mass ratio] 24.8 mg/mg Normal [facility] Comment on above: Performed By: #### C MP ####[facility] Xvrzgtpkzh4482 [place] [address]Dr. Airam Tripathi OSMOLALITYon 01-21-2022 Osmolality [Osmolality] 276 mosm/kg Normal 275-295 [facility] Comment on above: Performed By: #### O SMO ####[facility] Tdcjkyuqgu884[address] [place], [place] [address]Dr. Airam Deuce MRI CSPINE WO CONon 01-21-20 22 MRI CSPINE WO CON Normal [facility] CBC AUTO DIFFon 01-19-2022 BASO # 0.0 103/ul Normal 0.0-0.1 [facility] Comment on above: Performed By: #### C BC ####[facility] Ekauzwxnuq0624[address] [place], [place] [address]Dr. Airam Tripathi Basophils/100 WBC (Bld) 0.2 % Normal 0.2-2.0 [facility] Comment on above: Performed By: #### C BC ####[facility] Asldhlqyes887[address] [place], [place] [address]Dr. Airam Tripathi EO # 0.2 103/ul Normal 0.0-0.7 [facility] Comment on above: Performed By: #### C BC ####[facility] Juauzvntdi6685[address] [place], [place] [address]Dr. Airam Tripathi Eosinophils/100 WBC (Bld) 2.1 % Normal 0.9-7.0 [facility] Comment on above: Performed By: #### C BC ####[facility] Wowksmyfdt077922 [address] [place], [place] [address]Dr. Airam Tripathi Erythrocyte distribution width (RBC) [Ratio] 12.7 % Normal 11.0-15.0 [facility] Comment on above: Performed By: #### C BC ####[facility] Scycjwlwhz95232[address] [place], [place] [address]Dr. Airam Tripathi Hematocrit (Bld) [Volume fraction] 32.2 % Critically low 36.0-48.0 [facility] Comment on above: Performed By: #### C BC ####[facility] Dqjcgcypzs9282 [place] [address]Dr. Airam Tripathi Hemoglobin (Bld) [Mass/Vol] 10.4 g/dL Critically low 12.0-16.0 [facility] Comment on above: Performed By: #### C BC ####[facility] Unhvfgxqhz1886 [place] [address]Dr. Airam Tripathi IG # 0.03 10e3/ul Normal 0.00-0.03 [facility] Comment on above: Performed By: #### C BC ####[facility] Uurdxchway3047[address] [place], [place] [address]Dr. Airam Tripathi IG % 0.3 % Normal 0.0-0.5 [facility] Comment on above: Performed By: #### C BC ####[facility] Lfdalkqxed9466[address] [place], [place] [address]Dr. Airam Tripathi LYMPH # 1.4 103/ul Normal 1.2-3.8 [facility] Comment on above: Performed By: #### C BC ####[facility] Szodgfqfmz5287[address] [place], [place] [address]Dr. Airam Tripathi Lymphocytes/100 WBC (Bld) 16.0 % Critically low 20.5-60.0 [facility] Comment on above: Performed By: #### C BC ####[facility] Ftefazxcys8435[address] [place], [place] [address]Dr. Airam Tripathi MANUAL DIFF REQ NO Normal [facility] Comment on above: Performed By: #### C BC ####[facility] Motnafrdmg9699[address] [place], [place] [address]Dr. Airam Tripathi MCH (RBC) [Entitic mass] 30.0 pg Normal 26.7-34.0 [facility] Comment on above: Performed By: #### C BC ####[facility] Pzyfooallv7949[address] [place], [place] [address]Dr. Airam Tripathi MCHC (RBC) [Mass/Vol] 32.3 g/dL Normal 29.9-35.2 [facility] Comment on above: Performed By: #### C BC ####[facility] Snoiqssyla5725 [place] [id number]. Airam Tripathi MCV (RBC) [Entitic vol] 92.8 fL Normal 81.0-99.0 [facility] Comment on above: Performed By: #### C BC ####[facility] Swwggsthih2722 [place] [id number]. Airam Tripathi MONO # 0.4 103/ul Normal 0.3-0.8 [facility] Comment on above: Performed By: #### C BC ####[facility] Iiqhfpyygy1285 [place] [id number]. Airam Tripathi Monocytes/100 WBC (Bld) 4.9 % Normal 1.7-12.0 [facility] Comment on above: Performed By: #### C BC ####[facility] Pauhekdqpv5085 [place] [id number]. Airam Tripathi NEUT # 6.6 103/ul Critically high 1.4-6.5 [facility] Comment on above: Performed By: #### C BC ####[facility] Nrkfuwhbkt9710 [place] [id number]. Airam Tripathi Neutrophils/100 WBC (Bld) 76.5 % Critically high 43.0-75.0 [facility] Comment on above: Performed By: #### C BC ####[facility] Ilitqzstfm8156 [place] [id number]. Airam Tripathi Platelet mean volume (Bld) [Entitic vol] 9.8 fL Normal 9.5-13.5 [facility] Comment on above: Performed By: #### C BC ####[facility] Xsceuagema6362 [place] [phone]. Airam Tripathi PLT 262 103/ul Normal 150-450 [facility] Comment on above: Performed By: #### C BC ####[facility] Hexrwlhvet8634 [place] [id number]. Airam Tripathi RBC 3.47 106/ul Critically low 4.20-5.40 [facility] Comment on above: Performed By: #### C BC ####[facility] Cqzgruscya8082 [place] [address]Dr. Airam Tripathi WBC 8.7 103/ul Normal 4.0-11.0 [facility] Comment on above: Performed By: #### C BC ####[facility] Dcfenhobwt1575 [place] [address]Dr. Airam Tripathi PROF 14(COMP METB)on 022 Albumin [Mass/Vol] 3.3 g/dL Critically low 3.4-5.0 [facility] Comment on above: Performed By: #### C MP ####[facility] Bechlhulfv1856 [place] [address]Dr. Ariam Tripathi Albumin/Globulin [Mass ratio] 1.1 {ratio} Normal [facility] Comment on above: Performed By: #### C MP ####[facility] Vdgemboqnb09[address] [place], [place] [address]Dr. Airam Tripathi ALP [Catalytic activity/Vol] 114 U/L Normal 46-116 [facility] Comment on above: Performed By: #### C MP ####[facility] Yqxfujisyc0956[address] [place], [place] [address]Dr. Airam Tripathi ALT [Catalytic activity/Vol] 20 U/L Normal 14-59 [facility] Comment on above: Performed By: #### C MP ####[facility] Uxuhojbizv3108[address] [place], [place] [address]Dr. Airam Tripathi Anion gap [Moles/Vol] 14.7 mmol/L Normal [facility] Comment on above: Performed By: #### C MP ####[facility] Guheqccoxx874[address] [place], [place] [address]Dr. Airam Tripathi AST [Catalytic activity/Vol] 22 U/L Normal 15-37 [facility] Comment on above: Performed By: #### C MP ####[facility] Bdirnurmwx[address] [place], [place] [address]Dr. Airam Tripathi Bilirubin [Mass/Vol] 0.3 mg/dL Normal 0.2-1.0 [facility] Comment on above: Performed By: #### C MP ####[facility] Czdrgkyphg4450 [place] [id number]. Airam Tripathi Calcium [Mass/Vol] 8.8 mg/dL Normal 8.5-10.1 [facility] Comment on above: Performed By: #### C MP ####[facility] Gqsbhthywu4005 [place] [phone]. Airam Tripathi Chloride [Moles/Vol] 97 mmol/L Critically low 98-107 [facility] Comment on above: Performed By: #### C MP ####[facility] Datkaqcyve3616 [place] [phone]. Airam Tripathi CO2 [Moles/Vol] 24.5 mmol/L Normal 21.0-32.0 [facility] Comment on above: Performed By: #### C MP ####[facility] Zckruuqwop3963 [place] [address]Dr. Airam Tripathi Creatinine [Mass/Vol] 1.28 mg/dL Critically high 0.55-1.02 [facility] Comment on above: Performed By: #### C MP ####[facility] Daptgokedd5155 [place] [phone]. Airam Tripathi EGFR-AF SLOVENIAN 52 mL/min/1.73m2 Critically low >=60 [facility] Comment on above: Performed By: #### C MP ####[facility] Dagvcxjnub4673 [place] [phone]. Airam Tripathi EGFR-NON AF SLOVENIAN 43 mL/min/1.73m2 Critically low >=60 [facility] Comment on above: Performed By: #### C MP ####[facility] Dddwslabsp8569 [place] [phone]. Airam Tripathi Globulin (S) [Mass/Vol] 3.1 g/dL Normal [facility] Comment on above: Performed By: #### C MP ####[facility] Shivbtehnf1694 [place] [phone]. Airam Deuce Glucose [Mass/Vol] 87 mg/dL Normal 74-106 [facility] Comment on above: Performed By: #### C MP ####[facility] Wtelpevpuq7659 [place] [address]Dr. Airam Deuce Potassium [Moles/Vol] 4.2 mmol/L Normal 3.5-5.1 [facility] Comment on above: Performed By: #### C MP ####[facility] Fxoteonwfg1792 [place] [address]Dr. Airam Deuce Protein [Mass/Vol] 6.4 g/dL Normal 6.4-8.2 [facility] Comment on above: Performed By: #### C MP ####[facility] Peejmvnwoo[address] [place], [place] [address]Dr. Selenaneil Tripathi Sodium [Moles/Vol] 132 mmol/L Critically low 136-145 [facility] Comment on above: Performed By: #### C MP ####[facility] Sptycmkkvu98[address] [place], [place] [address]Dr. Airam Tripathi Urea nitrogen [Mass/Vol] 36.0 mg/dL Critically high 7.0-18.0 [facility] Comment on above: Performed By: #### C MP ####[facility] Jlicnhgsxl7770[address] [place], [place] [address]Dr. Selenaneil Tripathi Urea nitrogen/Creatinine [Mass ratio] 28.1 mg/mg Normal [facility] Comment on above: Performed By: #### C MP ####[facility] Rezdwrqvhu658[address] [place], [place] [address]Dr. Airam Deuce XR DEXA BONE DENSITYon 01-19 XR DEXA BONE DENSITY Normal [facility] OSMOLALITYon 01-13-2022 Osmolality [Osmolality] 277 mosm/kg Normal 275-295 [facility] Comment on above: Performed By: #### O SMO ####[facility] Vsrqsrlytj7[address] [place], [place] [address]Dr. Selenaneil Deuce CBC AUTO DIFFon 01-11-2022 BASO # 0.0 103/ul Normal 0.0-0.1 [facility] Comment on above: Performed By: #### C BC ####[facility] Knamrpgzmm8964[address] [place], [place] [address]Dr. Airam Tripathi Basophils/100 WBC (Bld) 0.5 % Normal 0.2-2.0 [facility] Comment on above: Performed By: #### C BC ####[facility] Jdknuwietk382[address] [place], [place] [address]Dr. Airam Tripathi EO # 0.2 103/ul Normal 0.0-0.7 [facility] Comment on above: Performed By: #### C BC ####[facility] Mmzkjezkph15[address] [place], [place] [address]Dr. Airam Tripathi Eosinophils/100 WBC (Bld) 3.1 % Normal 0.9-7.0 [facility] Comment on above: Performed By: #### C BC ####[facility] Nzfyoqpgqr435[address] [place], [place] [address]Dr. Airam Tripathi Erythrocyte distribution width (RBC) [Ratio] 12.5 % Normal 11.0-15.0 [facility] Comment on above: Performed By: #### C BC ####[facility] Xmadsurhff948[address] [place], [place] [address]Dr. Airam Tripathi Hematocrit (Bld) [Volume fraction] 34.4 % Critically low 36.0-48.0 [facility] Comment on above: Performed By: #### C BC ####[facility] Qdzigxttyf3[address] [place], [place] [address]Dr. Airam Tripathi Hemoglobin (Bld) [Mass/Vol] 11.0 g/dL Critically low 12.0-16.0 [facility] Comment on above: Performed By: #### C BC ####[facility] Hvrmycklgd36[address] [place], [place] [address]Dr. Airam Tripathi IG # 0.03 10e3/ul Normal 0.00-0.03 [facility] Comment on above: Performed By: #### C BC ####[facility] Gemghdcjnf407[address] [place], [place] [address]Dr. Airam Tripathi IG % 0.5 % Normal 0.0-0.5 [facility] Comment on above: Performed By: #### C BC ####[facility] Wlknamjzqt1875[address] [place], [place] [address]Dr. Airam Tripathi LYMPH # 1.6 103/ul Normal 1.2-3.8 [facility] Comment on above: Performed By: #### C BC ####[facility] Pidggzraow0960 [place] [address]Dr. Airam Tripathi Lymphocytes/100 WBC (Bld) 28.0 % Normal 20.5-60.0 [facility] Comment on above: Performed By: #### C BC ####[facility] Hizjccvesh0234 [place] [address]DrKianna Tripathi MANUAL DIFF REQ NO Normal [facility] Comment on above: Performed By: #### C BC ####[facility] Xxizvrsiad5900 [place] [address]DrKianna Tripathi MCH (RBC) [Entitic mass] 30.1 pg Normal 26.7-34.0 [facility] Comment on above: Performed By: #### C BC ####[facility] Isqwbotfja024[address] [place], [place] [address]Dr. Airam Tripathi MCHC (RBC) [Mass/Vol] 32.0 g/dL Normal 29.9-35.2 [facility] Comment on above: Performed By: #### C BC ####[facility] Ezrnrenbbc2005[address] [place], [place] [address]DrKianna Tripathi MCV (RBC) [Entitic vol] 94.0 fL Normal 81.0-99.0 [facility] Comment on above: Performed By: #### C BC ####[facility] Mzlytzwlfm5826[address] [place], [place] [address]DrKianna Tripathi MONO # 0.4 103/ul Normal 0.3-0.8 [facility] Comment on above: Performed By: #### C BC ####[facility] Hhciejijuj7[address] [place], [place] [address]DrKianna Tripathi Monocytes/100 WBC (Bld) 7.5 % Normal 1.7-12.0 [facility] Comment on above: Performed By: #### C BC ####[facility] Rzlxiwspwu280[address] [place], [place] [address]DrKianna Tripathi NEUT # 3.5 103/ul Normal 1.4-6.5 [facility] Comment on above: Performed By: #### C BC ####[facility] Oisckriham9589 [place] [address]Dr. Airam Tripathi Neutrophils/100 WBC (Bld) 60.4 % Normal 43.0-75.0 [facility] Comment on above: Performed By: #### C BC ####[facility] Ckifiaocsc3912 [place] [address]Dr. Airam Tripathi Platelet mean volume (Bld) [Entitic vol] 10.0 fL Normal 9.5-13.5 [facility] Comment on above: Performed By: #### C BC ####[facility] Wbyyusqycm50[address] [place], [place] [address]Dr. Airam Tripathi PLT 300 103/ul Normal 150-450 [facility] Comment on above: Performed By: #### C BC ####[facility] Azvqphcmfl0066 [place] [address]Dr. Airam Tripathi RBC 3.66 106/ul Critically low 4.20-5.40 [facility] Comment on above: Performed By: #### C BC ####[facility] Mbjodcmdvo476[address] [place], [place] [address]Dr. Airam Tripathi WBC 5.7 103/ul Normal 4.0-11.0 [facility] Comment on above: Performed By: #### C BC ####[facility] Mshyoalgpa4667[address] [place], [place] [address]Dr. Airam Tripathi PROF 14(COMP METB)on 022 Albumin [Mass/Vol] 3.3 g/dL Critically low 3.4-5.0 [facility] Comment on above: Performed By: #### C MP ####[facility] Jdznopcvsd4[address] [place], [place] [address]DrKianna Tripathi Albumin/Globulin [Mass ratio] 1.0 {ratio} Normal [facility] Comment on above: Performed By: #### C MP ####[facility] Zqiidjzhkh8[address] [place], [place] [address]Dr. Airam Tripathi ALP [Catalytic activity/Vol] 138 U/L Critically high 46-116 [facility] Comment on above: Performed By: #### C MP ####[facility] Ujzeyxuuxo2943 [place] [address]Dr. Airam Tripathi ALT [Catalytic activity/Vol] 25 U/L Normal 14-59 [facility] Comment on above: Performed By: #### C MP ####[facility] Liaflbzdks3989 [place] [phone]. Airam Tripathi Anion gap [Moles/Vol] 14.0 mmol/L Normal [facility] Comment on above: Performed By: #### C MP ####[facility] Ynqurfldda8361 [place] [address]Dr. Airam Tripathi AST [Catalytic activity/Vol] 19 U/L Normal 15-37 [facility] Comment on above: Performed By: #### C MP ####[facility] Xqbgpthheg3385 [place] [address]Dr. Airam Deuce Bilirubin [Mass/Vol] 0.3 mg/dL Normal 0.2-1.0 [facility] Comment on above: Performed By: #### C MP ####[facility] Gddbvpdklq4753 [place] [address]Dr. Airam Tripathi Calcium [Mass/Vol] 8.7 mg/dL Normal 8.5-10.1 [facility] Comment on above: Performed By: #### C MP ####[facility] Fimrnamepj9047 [place] [address]Dr. Airam Tripathi Chloride [Moles/Vol] 99 mmol/L Normal 98-107 [facility] Comment on above: Performed By: #### C MP ####[facility] Fkbqzftxmi0938 [place] [phone]. Airam Tripathi CO2 [Moles/Vol] 25.4 mmol/L Normal 21.0-32.0 [facility] Comment on above: Performed By: #### C MP ####[facility] Yygcmawumv9213 [place] [phone]. Airam Deuce Creatinine [Mass/Vol] 1.22 mg/dL Critically high 0.55-1.02 [facility] Comment on above: Performed By: #### C MP ####[facility] Hwazcfceop7894 [place] [phone]. Airam Tripathi EGFR-AF SLOVENIAN 55 mL/min/1.73m2 Critically low >=60 [facility] Comment on above: Performed By: #### C MP ####[facility] Rofoqmbjpu0021 [place] [phone]. Airam Deuce EGFR-NON AF SLOVENIAN 45 mL/min/1.73m2 Critically low >=60 [facility] Comment on above: Performed By: #### C MP ####[facility] Mohjwcrwqv8821 [place] [phone]. Airam Deuce Globulin (S) [Mass/Vol] 3.2 g/dL Normal [facility] Comment on above: Performed By: #### C MP ####[facility] Yuibjkzsvl1021 [place] [address]Dr. Airam Tripathi Glucose [Mass/Vol] 111 mg/dL Critically high 74-106 [facility] Comment on above: Performed By: #### C MP ####[facility] Cseyiplcay8345 [place] [phone]. Selenaneil Tripathi Potassium [Moles/Vol] 4.4 mmol/L Normal 3.5-5.1 [facility] Comment on above: Performed By: #### C MP ####[facility] Ddmblsqqhf5252 [place] [phone]. Airam Tripathi Protein [Mass/Vol] 6.5 g/dL Normal 6.4-8.2 [facility] Comment on above: Performed By: #### C MP ####[facility] Obtincyosy5756 [place] [phone]. Airam Tripathi Sodium [Moles/Vol] 134 mmol/L Critically low 136-145 [facility] Comment on above: Performed By: #### C MP ####[facility] Ycdqfmsliw5309 [place] [phone]. Airam Tripathi Urea nitrogen [Mass/Vol] 27.0 mg/dL Critically high 7.0-18.0 [facility] Comment on above: Performed By: #### C MP ####[facility] Opstjyswvi0668 [place], [place] [address]Fp. Airam Tripathi Urea nitrogen/Creatinine [Mass ratio] 22.1 mg/mg Normal [facility] Comment on above: Performed By: #### C MP ####[facility] Vemvfxnlcr8184 [place], [place] [address]Td. Airam Tripathi CT CERVICAL SPINE WITHOUT CO NTRASTon 01-10-2022 CT CERVICAL SPINE WITHOUT CONTRAST [facility] Department of Radiology [address] [place] [address] Patient Name: MABEL MOSER : 1960 Sex: F Age: Race: White Pt. Location: 29 Patient Status: D Ordered Date: 08/17/2021 10:00:00 AM Completed Date: 01/10/2022 10:24 AM Requesting Provider: ROBERT JOHNSTON Attending Provider: ROEBRT JOHNSTON Report Copy To: ANGLE SANTANA Signs [...] achievable. Electronically signed: Ayleen Ny. Transcribed by: [email or web address], User Resident: Electronically Signed by: AYLEEN [place] @ 01/12/2022 12:32 PM Normal [facility] OSMOLALITYon 01-07-2022 Osmolality [Osmolality] 286 mosm/kg Normal 275-295 [facility] Comment on above: Performed By: #### O SMO ####[facility] Gmdgdafrgx4500 [place] [address]Dr. Airam Tripathi CBC AUTO DIFFon 01-06-2022 BASO # 0.0 103/ul Normal 0.0-0.1 [facility] Comment on above: Performed By: #### C BC ####[facility] Rbxxjheolq5540 [place] [phone] Tripathi Basophils/100 WBC (Bld) 0.3 % Normal 0.2-2.0 [facility] Comment on above: Performed By: #### C BC ####[facility] Xrmbojufkp9332 [place] [phone]. Airam Tripathi EO # 0.2 103/ul Normal 0.0-0.7 [facility] Comment on above: Performed By: #### C BC ####[facility] Uozpldirlj4675 [place] [address]Dr. Airam Tripathi Eosinophils/100 WBC (Bld) 4.1 % Normal 0.9-7.0 [facility] Comment on above: Performed By: #### C BC ####[facility] Lvhtqatmdg6[address] [place], [place] [address]Dr. Airam Tripathi Erythrocyte distribution width (RBC) [Ratio] 12.9 % Normal 11.0-15.0 [facility] Comment on above: Performed By: #### C BC ####[facility] Ddogljxvls3[address] [place], [place] [address]Dr. Airam Tripathi Hematocrit (Bld) [Volume fraction] 34.2 % Critically low 36.0-48.0 [facility] Comment on above: Performed By: #### C BC ####[facility] Ydxoibbpbp6[address] [place], [place] [address]Dr. Airam Tripathi Hemoglobin (Bld) [Mass/Vol] 10.6 g/dL Critically low 12.0-16.0 [facility] Comment on above: Performed By: #### C BC ####[facility] Wrnekgrflo87[address] [place], [place] [address]Dr. Airam Tripathi IG # 0.03 10e3/ul Normal 0.00-0.03 [facility] Comment on above: Performed By: #### C BC ####[facility] Kpkhovylex5001 [place] [address]Dr. Airam Tripathi IG % 0.5 % Normal 0.0-0.5 [facility] Comment on above: Performed By: #### C BC ####[facility] Rtrlgjjoby60[address] [place], [place] [address]Dr. Airam Tripathi LYMPH # 1.1 103/ul Critically low 1.2-3.8 [facility] Comment on above: Performed By: #### C BC ####[facility] Qzdtrwwzyr2748 [place] [phone]. Airam Tripathi Lymphocytes/100 WBC (Bld) 18.2 % Critically low 20.5-60.0 [facility] Comment on above: Performed By: #### C BC ####[facility] Cktpsgulir7551 [place] [phone]. Airam Tripathi MANUAL DIFF REQ NO Normal [facility] Comment on above: Performed By: #### C BC ####[facility] Nusotwgpon9872 [place] [phone]. Airam Deuce MCH (RBC) [Entitic mass] 29.6 pg Normal 26.7-34.0 [facility] Comment on above: Performed By: #### C BC ####[facility] Jppwjrwvly5423 [place] [address]Dr. Airam Tripathi MCHC (RBC) [Mass/Vol] 31.0 g/dL Normal 29.9-35.2 [facility] Comment on above: Performed By: #### C BC ####[facility] Mslohoxztj1631 [place] [phone]. Airam Deuce MCV (RBC) [Entitic vol] 95.5 fL Normal 81.0-99.0 [facility] Comment on above: Performed By: #### C BC ####[facility] Honffootga6124 [place] [address]Dr. Selenaneil Deuce MONO # 0.5 103/ul Normal 0.3-0.8 [facility] Comment on above: Performed By: #### C BC ####[facility] Hxvjfusgyu4617 [place] [phone]. Airam Deuce Monocytes/100 WBC (Bld) 8.5 % Normal 1.7-12.0 [facility] Comment on above: Performed By: #### C BC ####[facility] Xlvwepdije[address] [place], [place] [address]Dr. Airam Tripathi NEUT # 4.0 103/ul Normal 1.4-6.5 [facility] Comment on above: Performed By: #### C BC ####[facility] Acsajnilil8088 [place] [phone]. Airam Tripathi Neutrophils/100 WBC (Bld) 68.4 % Normal 43.0-75.0 [facility] Comment on above: Performed By: #### C BC ####[facility] Uzzsotwzrn0600 [place] [phone]. Airam Tripathi Platelet mean volume (Bld) [Entitic vol] 10.1 fL Normal 9.5-13.5 [facility] Comment on above: Performed By: #### C BC ####[facility] Hlvlizszfo2378 [place] [phone]. Airam Tripathi PLT 304 103/ul Normal 150-450 [facility] Comment on above: Performed By: #### C BC ####[facility] Ovrivsoagg9242 [place] [address]Dr. Airam Tripathi RBC 3.58 106/ul Critically low 4.20-5.40 [facility] Comment on above: Performed By: #### C BC ####[facility] Slctjtlxue3164 [place] [address]Dr. Airam Tripathi WBC 5.9 103/ul Normal 4.0-11.0 [facility] Comment on above: Performed By: #### C BC ####[facility] Padwjouwek8237 [place] [address]Dr. Airam Deuce MG MAMM RT DIAG FUon 022 MG MAMM RT DIAG FU Normal [facility] PROF 14(COMP METB)on 022 Albumin [Mass/Vol] 3.1 g/dL Critically low 3.4-5.0 [facility] Comment on above: Performed By: #### C MP ####[facility] Utvgaqceyj[address] [place], [place] [address]Dr. Airam Tripathi Albumin/Globulin [Mass ratio] 1.0 {ratio} Normal [facility] Comment on above: Performed By: #### C MP ####[facility] Bazsrfcqzs6276 [place] [address]Dr. Airam Tripathi ALP [Catalytic activity/Vol] 143 U/L Critically high 46-116 [facility] Comment on above: Performed By: #### C MP ####[facility] Smcqwzkamf0672 [place] [phone]. Airam Tripathi ALT [Catalytic activity/Vol] 23 U/L Normal 14-59 [facility] Comment on above: Performed By: #### C MP ####[facility] Yjqeqgljzq7264 [place] [phone]. Airam Tripathi Anion gap [Moles/Vol] 13.2 mmol/L Normal Th [facility] Comment on above: Performed By: #### C MP ####[facility] Ptkhpcwrzf0301 [place] [phone]. Airam Tripathi AST [Catalytic activity/Vol] 20 U/L Normal 15-37 [facility] Comment on above: Performed By: #### C MP ####[facility] Dxdscovsdk9622 [place] [address]Dr. Airam Deuce Bilirubin [Mass/Vol] 0.3 mg/dL Normal 0.2-1.0 [facility] Comment on above: Performed By: #### C MP ####[facility] Qcvsvpznlj6816 [place] [phone]. Airam Deuce Calcium [Mass/Vol] 8.2 mg/dL Critically low 8.5-10.1 [facility] Comment on above: Performed By: #### C MP ####[facility] Dxkjfytzdb0548 [place] [phone]. Airam Deuce Chloride [Moles/Vol] 100 mmol/L Normal 98-107 [facility] Comment on above: Performed By: #### C MP ####[facility] Pszuubsvjx2215 [place] [phone]. Airam Deuce CO2 [Moles/Vol] 26.0 mmol/L Normal 21.0-32.0 [facility] Comment on above: Performed By: #### C MP ####[facility] Ipclfhsbxn6044 [place] [phone]. Selenaneil Tripathi Creatinine [Mass/Vol] 1.52 mg/dL Critically high 0.55-1.02 [facility] Comment on above: Performed By: #### C MP ####[facility] Jeuxnqqvka2730 [place] [phone]. Airam Tripathi EGFR-AF SLOVENIAN 42 mL/min/1.73m2 Critically low >=60 [facility] Comment on above: Performed By: #### C MP ####[facility] Rooyagzrxn1863 [place] [phone]. Airam Tripathi EGFR-NON AF SLOVENIAN 35 mL/min/1.73m2 Critically low >=60 [facility] Comment on above: Performed By: #### C MP ####[facility] Zyoorzpmzl4784 [place] [address]Dr. Airam Deuce Globulin (S) [Mass/Vol] 3.2 g/dL Normal [facility] Comment on above: Performed By: #### C MP ####[facility] Cftxpjjyeo7552 [place] [address]Dr. Airam Deuce Glucose [Mass/Vol] 84 mg/dL Normal 74-106 [facility] Comment on above: Performed By: #### C MP ####[facility] Gkvhugcsxx8927 [place] [address]Dr. Airam Deuce Potassium [Moles/Vol] 4.2 mmol/L Normal 3.5-5.1 [facility] Comment on above: Performed By: #### C MP ####[facility] Ageusykvmm5907 [place] [address]Dr. Airam Tripathi Protein [Mass/Vol] 6.3 g/dL Critically low 6.4-8.2 Th [facility] Comment on above: Performed By: #### C MP ####[facility] Aochvoqdqb0790 [place] [address]Dr. Airam Tripathi Sodium [Moles/Vol] 135 mmol/L Critically low 136-145 Th [facility] Comment on above: Performed By: #### C MP ####[facility] Jzbdqnzark7091 [place] [address]Dr. Airam Deuce Urea nitrogen [Mass/Vol] 36.0 mg/dL Critically high 7.0-18.0 [facility] Comment on above: Performed By: #### C MP ####[facility] Lxvwfobadu5840 [place] [address]Dr. Airam Deuce Urea nitrogen/Creatinine [Mass ratio] 23.7 mg/mg Normal [facility] Comment on above: Performed By: #### C MP ####[facility] Juntctozoh2344 [place] [address]Dr. Airam Tripathi US BREAST RIGHT LIMITEDon US BREAST RIGHT LIMITED Normal [facility] OSMOLALITYon 12-31-2021 Osmolality [Osmolality] 280 mosm/kg Normal 275-295 [facility] Comment on above: Performed By: #### O SMO ####[facility] Bkddbiprls90[address] [place], [place] [address]Dr. Airam Deuce CBC AUTO DIFFon 12-30-2021 BASO # 0.0 103/ul Normal 0.0-0.1 [facility] Comment on above: Performed By: #### C BC ####[facility] Bllwfhoxbp65[address] [place], [place] [address]Dr. Airam Tripathi Basophils/100 WBC (Bld) 0.5 % Normal 0.2-2.0 [facility] Comment on above: Performed By: #### C BC ####[facility] Rvrlqajcka48[address] [place], [place] [address]Dr. Airam Tripathi EO # 0.3 103/ul Normal 0.0-0.7 [facility] Comment on above: Performed By: #### C BC ####[facility] Ubhvbgeqwm38[address] [place], [place] [address]Dr. Airam Tripathi Eosinophils/100 WBC (Bld) 3.5 % Normal 0.9-7.0 [facility] Comment on above: Performed By: #### C BC ####[facility] Pcwcllvqvn10[address] [place], [place] [address]Dr. Airam Tripathi Erythrocyte distribution width (RBC) [Ratio] 13.0 % Normal 11.0-15.0 [facility] Comment on above: Performed By: #### C BC ####[facility] Uwvfnxkbjf5045 [place] [address]Dr. Airam Tripathi Hematocrit (Bld) [Volume fraction] 34.2 % Critically low 36.0-48.0 [facility] Comment on above: Performed By: #### C BC ####[facility] Bjyysryvij1202 [place] [address]Dr. Selenaneil Tripathi Hemoglobin (Bld) [Mass/Vol] 10.4 g/dL Critically low 12.0-16.0 [facility] Comment on above: Performed By: #### C BC ####[facility] Pzkspfrnxh7830 [place] [address]Dr. Airam Tripathi IG # 0.04 10e3/ul Critically high 0.00-0.03 [facility] Comment on above: Performed By: #### C BC ####[facility] Ptmqvsdvrj679[address] [place], [place] [address]Dr. Airam Tripathi IG % 0.5 % Normal 0.0-0.5 [facility] Comment on above: Performed By: #### C BC ####[facility] Sutazhxhqx94[address] [place], [place] [address]DrKianna Tripathi LYMPH # 2.1 103/ul Normal 1.2-3.8 [facility] Comment on above: Performed By: #### C BC ####[facility] Bhpxndxgnr9330 [place] [address]DrKianna Tripathi Lymphocytes/100 WBC (Bld) 23.5 % Normal 20.5-60.0 [facility] Comment on above: Performed By: #### C BC ####[facility] Giprutjoiq3283 [place] [address]DrKianna Tripathi MANUAL DIFF REQ NO Normal [facility] Comment on above: Performed By: #### C BC ####[facility] Yxzukytqkl[address] [place] [place], [place] [address]DrKianna Tripathi MCH (RBC) [Entitic mass] 29.4 pg Normal 26.7-34.0 [facility] Comment on above: Performed By: #### C BC ####[facility] Fobefujqkp[address] [place], [place] [address]Dr. Airam Tripathi MCHC (RBC) [Mass/Vol] 30.4 g/dL Normal 29.9-35.2 [facility] Comment on above: Performed By: #### C BC ####[facility] Ztqlhpqrbv9720 [place] [id number]. Airam Tripathi MCV (RBC) [Entitic vol] 96.6 fL Normal 81.0-99.0 [facility] Comment on above: Performed By: #### C BC ####[facility] Gjaoizjdul74[address] [place] [address]Dr. Airam Deuce MONO # 0.6 103/ul Normal 0.3-0.8 [facility] Comment on above: Performed By: #### C BC ####[facility] Ptrucjihnb1559 [place] [address]Dr. Selenaneil Tripathi Monocytes/100 WBC (Bld) 6.4 % Normal 1.7-12.0 [facility] Comment on above: Performed By: #### C BC ####[facility] Tkkdxfbvle[address] [place], [place] [address]Dr. Airam Deuce NEUT # 5.8 103/ul Normal 1.4-6.5 [facility] Comment on above: Performed By: #### C BC ####[facility] Arbwqjdgcq1538 [place] [address]Dr. Airam Deuce Neutrophils/100 WBC (Bld) 65.6 % Normal 43.0-75.0 [facility] Comment on above: Performed By: #### C BC ####[facility] Eynzoematk0497 [place] [address]Dr. Airam Deuce Platelet mean volume (Bld) [Entitic vol] 9.2 fL Critically low 9.5-13.5 [facility] Comment on above: Performed By: #### C BC ####[facility] Etaficubie0060 [place] [address]Dr. Airam Deuce PLT 338 103/ul Normal 150-450 [facility] Comment on above: Performed By: #### C BC ####[facility] Vrtcgqdlad6809 [place] [address]Dr. Airam Tripathi RBC 3.54 106/ul Critically low 4.20-5.40 [facility] Comment on above: Performed By: #### C BC ####[facility] Bbbjszuyvl8369 [place] [address]Dr. Airam Tripathi WBC 8.9 103/ul Normal 4.0-11.0 [facility] Comment on above: Performed By: #### C BC ####[facility] Ekavkjfydn2782 [place] [address]Dr. Airam Tripathi MG MAMM SCREEN 3D GUMARO CADon 12-30-2021 MG MAMM SCREEN 3D GUMARO CAD Normal [facility] PROF 14(COMP METB)on 022 Albumin [Mass/Vol] 3.6 g/dL Normal 3.4-5.0 [facility] Comment on above: Performed By: #### C MP ####[facility] Qqswjyxzrb[address] [place], [place] [address]Dr. Airam Tripathi Albumin/Globulin [Mass ratio] 1.1 {ratio} Normal [facility] Comment on above: Performed By: #### C MP ####[facility] Hdbeyyrirs4304 [place] [address]Dr. Airam Deuce ALP [Catalytic activity/Vol] 117 U/L Critically high 46-116 [facility] Comment on above: Performed By: #### C MP ####[facility] Gbwwquoawc3153 [place] [address]Dr. Selenaneil Deuce ALT [Catalytic activity/Vol] 26 U/L Normal 14-59 [facility] Comment on above: Performed By: #### C MP ####[facility] Lpewgvaxfz1482 [place] [address]Dr. Selenaneil Deuce Anion gap [Moles/Vol] 11.2 mmol/L Normal [facility] Comment on above: Performed By: #### C MP ####[facility] Mfrqqtimxw6620 [place] [address]Dr. Airam Tripathi AST [Catalytic activity/Vol] 29 U/L Normal 15-37 [facility] Comment on above: Performed By: #### C MP ####[facility] Oeuzhzqseh1318 [place] [address]Dr. Airam Tripathi Bilirubin [Mass/Vol] 0.3 mg/dL Normal 0.2-1.0 [facility] Comment on above: Performed By: #### C MP ####[facility] Jwbpbmdfib[address] [place], [place] [address]Dr. Airam Tripathi Calcium [Mass/Vol] 9.1 mg/dL Normal 8.5-10.1 [facility] Comment on above: Performed By: #### C MP ####[facility] Lzbxcdjmkm53[address] [place], [place] [address]Dr. Airam Tripathi Chloride [Moles/Vol] 101 mmol/L Normal 98-107 [facility] Comment on above: Performed By: #### C MP ####[facility] Dvknzuzeel7[address] [place], [place] [address]Dr. Airam Tripathi CO2 [Moles/Vol] 26.8 mmol/L Normal 21.0-32.0 [facility] Comment on above: Performed By: #### C MP ####[facility] Kckfnxgfra5[address] [place], [place] [address]Dr. Airam Tripathi Creatinine [Mass/Vol] 1.56 mg/dL Critically high 0.55-1.02 [facility] Comment on above: Performed By: #### C MP ####[facility] Ptoarjizgu3207[address] [place], [place] [address]Dr. Airam Tripathi EGFR-AF SLOVENIAN 41 mL/min/1.73m2 Critically low >=60 [facility] Comment on above: Performed By: #### C MP ####[facility] Bxjeplqmvx7750[address] [place], [place] [address]Dr. Airam Tripathi EGFR-NON AF SLOVENIAN 34 mL/min/1.73m2 Critically low >=60 [facility] Comment on above: Performed By: #### C MP ####[facility] Jljkwpinhq2819[address] [place], [place] [address]Dr. Airam Tripathi Globulin (S) [Mass/Vol] 3.3 g/dL Normal [facility] Comment on above: Performed By: #### C MP ####[facility] Ylaaghawnh5282 [place] [address]Dr. Ariam Tripathi Glucose [Mass/Vol] 84 mg/dL Normal 74-106 [facility] Comment on above: Performed By: #### C MP ####[facility] Tavavufwpl9111 [place] [address]Dr. Airam Tripathi Potassium [Moles/Vol] 5.0 mmol/L Normal 3.5-5.1 [facility] Comment on above: Performed By: #### C MP ####[facility] Kinzaywpmr5204 [place] [address]Dr. Airam Tripathi Protein [Mass/Vol] 6.9 g/dL Normal 6.4-8.2 [facility] Comment on above: Performed By: #### C MP ####[facility] Eclqxqyoss15[address] [place], [place] [address]Dr. Selenaneil Tripathi Sodium [Moles/Vol] 134 mmol/L Critically low 136-145 [facility] Comment on above: Performed By: #### C MP ####[facility] Rguukytwrx04[address] [place], [place] [address]Dr. Airam Tripathi Urea nitrogen [Mass/Vol] 28.0 mg/dL Critically high 7.0-18.0 [facility] Comment on above: Performed By: #### C MP ####[facility] Bqmdbriccs9920[address] [place], [place] [address]Dr. Selenaneil Tripathi Urea nitrogen/Creatinine [Mass ratio] 17.9 mg/mg Normal [facility] Comment on above: Performed By: #### C MP ####[facility] Gnxfqhswil8337[address] [place], [place] [address]Dr. Airam Deuce OSMOLALITYon 12-24-2021 Osmolality [Osmolality] 287 mosm/kg Normal 275-295 [facility] Comment on above: Performed By: #### O SMO ####[facility] Bwbdpryykb7864[address] [place], [place] [address]Dr. Airam Deuce CBC AUTO DIFFon 12-22-2021 BASO # 0.0 103/ul Normal 0.0-0.1 [facility] Comment on above: Performed By: #### C BC ####[facility] Mowcwyyahe7083 [place] [id number]. Airam Tripathi Basophils/100 WBC (Bld) 0.5 % Normal 0.2-2.0 [facility] Comment on above: Performed By: #### C BC ####[facility] Cxgvmgmnvm[address] [place], [place] [address]Dr. Airam Tirpathi EO # 0.4 103/ul Normal 0.0-0.7 [facility] Comment on above: Performed By: #### C BC ####[facility] Muokorbtwr[address] [place], [place] [address]Dr. Airam Tripathi Eosinophils/100 WBC (Bld) 6.4 % Normal 0.9-7.0 [facility] Comment on above: Performed By: #### C BC ####[facility] Rjuifbetmy29[address] [place], [place] [address]Dr. Airam Tripathi Erythrocyte distribution width (RBC) [Ratio] 13.2 % Normal 11.0-15.0 [facility] Comment on above: Performed By: #### C BC ####[facility] Hmcgajmyvx0564[address] [place], [place] [address]Dr. Airam Tripathi Hematocrit (Bld) [Volume fraction] 32.2 % Critically low 36.0-48.0 [facility] Comment on above: Performed By: #### C BC ####[facility] Alcahjuefv1756[address] [place], [place] [address]Dr. Airam Tripathi Hemoglobin (Bld) [Mass/Vol] 10.1 g/dL Critically low 12.0-16.0 [facility] Comment on above: Performed By: #### C BC ####[facility] Affdaasvpl594[address] [place], [place] [address]Dr. Airam Tripathi IG # 0.03 10e3/ul Normal 0.00-0.03 [facility] Comment on above: Performed By: #### C BC ####[facility] Xvweihcyyf069[address] [place], [place] [address]Dr. Airam Tripathi IG % 0.5 % Normal 0.0-0.5 [facility] Comment on above: Performed By: #### C BC ####[facility] Golnsqxfmq9116 [place] [address]Dr. Selenaneil Tripathi LYMPH # 1.3 103/ul Normal 1.2-3.8 [facility] Comment on above: Performed By: #### C BC ####[facility] Gacfdvzouw2095 [place] [id number]. Airam Tripathi Lymphocytes/100 WBC (Bld) 20.5 % Normal 20.5-60.0 [facility] Comment on above: Performed By: #### C BC ####[facility] Ztrppkpgbb8207 [place] [address]Dr. Airam Tripathi MANUAL DIFF REQ NO Normal [facility] Comment on above: Performed By: #### C BC ####[facility] Moivbhvizx8463 [place] [address]Dr. Airam Tripathi MCH (RBC) [Entitic mass] 30.1 pg Normal 26.7-34.0 [facility] Comment on above: Performed By: #### C BC ####[facility] Dwwwayolit5977 [place] [address]Dr. Selenaneil Tripathi MCHC (RBC) [Mass/Vol] 31.4 g/dL Normal 29.9-35.2 [facility] Comment on above: Performed By: #### C BC ####[facility] Rmxbivsgup4[address] [place], [place] [address]DrKianna Tripathi MCV (RBC) [Entitic vol] 95.8 fL Normal 81.0-99.0 [facility] Comment on above: Performed By: #### C BC ####[facility] Aqmcjhnjdg0768 [place] [id number] Tripathi MONO # 0.5 103/ul Normal 0.3-0.8 [facility] Comment on above: Performed By: #### C BC ####[facility] Iiopjgewsw1425 [place] [phone]. Airam Tripathi Monocytes/100 WBC (Bld) 7.4 % Normal 1.7-12.0 [facility] Comment on above: Performed By: #### C BC ####[facility] Rmvgfotjsn4519 [place] [phone]. Airam Tripathi NEUT # 3.9 103/ul Normal 1.4-6.5 [facility] Comment on above: Performed By: #### C BC ####[facility] Pxayijwbaq3096 [place] [phone]. Selenaneil Deuce Neutrophils/100 WBC (Bld) 64.7 % Normal 43.0-75.0 [facility] Comment on above: Performed By: #### C BC ####[facility] Haxxhgiazq3368 [place] [phone]. Airam Tripathi Platelet mean volume (Bld) [Entitic vol] 9.2 fL Critically low 9.5-13.5 [facility] Comment on above: Performed By: #### C BC ####[facility] Akbexrtekb9402 [place] [address]Dr. Airam Tripathi PLT 309 103/ul Normal 150-450 [facility] Comment on above: Performed By: #### C BC ####[facility] Gmvdphzvlr4359 [place] [phone]. Airam Tripathi RBC 3.36 106/ul Critically low 4.20-5.40 [facility] Comment on above: Performed By: #### C BC ####[facility] Hrbjhgjjid8896 [place] [phone]. Airam Tripathi WBC 6.1 103/ul Normal 4.0-11.0 [facility] Comment on above: Performed By: #### C BC ####[facility] Ugbexvkhuj6987 [place] [phone] Tripathi PROF 14(COMP METB)on 022 Albumin [Mass/Vol] 3.2 g/dL Critically low 3.4-5.0 [facility] Comment on above: Performed By: #### C MP ####[facility] Gyomjicrtp9487 [place] [phone] Tripathi Albumin/Globulin [Mass ratio] 1.1 {ratio} Normal [facility] Comment on above: Performed By: #### C MP ####[facility] Agrmjkycxz9868 [place] [address]Dr. Airam Tripathi ALP [Catalytic activity/Vol] 123 U/L Critically high 46-116 [facility] Comment on above: Performed By: #### C MP ####[facility] Deiemdyoxt7346 [place] [address]Dr. Airam Deuce ALT [Catalytic activity/Vol] 26 U/L Normal 14-59 [facility] Comment on above: Performed By: #### C MP ####[facility] Lzkptayiqi5423 [place] [address]Dr. Selenaneil Deuce Anion gap [Moles/Vol] 14.5 mmol/L Normal [facility] Comment on above: Performed By: #### C MP ####[facility] Ldxwgosack08[address] [place], [place] [address]Dr. Selenaneil Tripathi AST [Catalytic activity/Vol] 23 U/L Normal 15-37 [facility] Comment on above: Performed By: #### C MP ####[facility] Qtgdhfyyhn9[address] [place], [place] [address]Dr. Selenaneil Deuce Bilirubin [Mass/Vol] 0.3 mg/dL Normal 0.2-1.0 [facility] Comment on above: Performed By: #### C MP ####[facility] Uixktyqshf529[address] [place], [place] [address]Dr. Airam Tripathi Calcium [Mass/Vol] 8.2 mg/dL Critically low 8.5-10.1 [facility] Comment on above: Performed By: #### C MP ####[facility] Hmbudzchsw6240 [place] [address]Dr. Airam Tripathi Chloride [Moles/Vol] 102 mmol/L Normal 98-107 [facility] Comment on above: Performed By: #### C MP ####[facility] Seiztbgsfe6730 [place] [address]Dr. Airam Tripathi CO2 [Moles/Vol] 23.2 mmol/L Normal 21.0-32.0 [facility] Comment on above: Performed By: #### C MP ####[facility] Gritirdopo7253 [place] [phone]. Airam Tripathi Creatinine [Mass/Vol] 1.98 mg/dL Critically high 0.55-1.02 [facility] Comment on above: Performed By: #### C MP ####[facility] Rixnagqlje5615 [place] [phone]. Airam Tripathi EGFR-AF SLOVENIAN 31 mL/min/1.73m2 Critically low >=60 [facility] Comment on above: Performed By: #### C MP ####[facility] Egkhpsnumx5168 [place] [phone]. Airam Deuce EGFR-NON AF SLOVENIAN 26 mL/min/1.73m2 Critically low >=60 [facility] Comment on above: Performed By: #### C MP ####[facility] Nldthrtuva0029 [place] [phone]. Airam Deuce Globulin (S) [Mass/Vol] 3.0 g/dL Normal [facility] Comment on above: Performed By: #### C MP ####[facility] Ungvapcyrf6740 [place] [phone]. Airam Tripathi Glucose [Mass/Vol] 131 mg/dL Critically high 74-106 [facility] Comment on above: Performed By: #### C MP ####[facility] Lzggcjulwu3102 [place] [phone]. Airam Deuce Potassium [Moles/Vol] 4.7 mmol/L Normal 3.5-5.1 [facility] Comment on above: Performed By: #### C MP ####[facility] Fekkgdjycx7925 [place] [phone]. Airam Tripathi Protein [Mass/Vol] 6.2 g/dL Critically low 6.4-8.2 [facility] Comment on above: Performed By: #### C MP ####[facility] Ylpfaypvwt9509 [place] [phone]. Selenaneil Tripathi Sodium [Moles/Vol] 135 mmol/L Critically low 136-145 [facility] Comment on above: Performed By: #### C MP ####[facility] Moghewrbvx7274 [place] [address]Dr. Airam Tripathi Urea nitrogen [Mass/Vol] 37.0 mg/dL Critically high 7.0-18.0 [facility] Comment on above: Performed By: #### C MP ####[facility] Nmqsxwcrfv9296 [place] [address]Dr. Airam Tripathi Urea nitrogen/Creatinine [Mass ratio] 18.7 mg/mg Normal [facility] Comment on above: Performed By: #### C MP ####[facility] Fqggaqsxpr3667[address] [place], [place] [address]Dr. Airam Tripathi OSMOLALITYon 12-18-2021 Osmolality [Osmolality] 271 mosm/kg Critically low 275-295 [facility] Comment on above: Performed By: #### O SMO ####[facility] Rnlgeixajg186[address] [place], [place] [address]Dr. Airam Tripathi CBC AUTO DIFFon 12-16-2021 BASO # 0.0 103/ul Normal 0.0-0.1 [facility] Comment on above: Performed By: #### C BC ####[facility] Ttxfcqyboh00[address] [place], [place] [address]Dr. Airam Deuce Basophils/100 WBC (Bld) 0.6 % Normal 0.2-2.0 [facility] Comment on above: Performed By: #### C BC ####[facility] Losjljmndn08[address] [place], [place] [address]Dr. Airam Tripathi EO # 0.1 103/ul Normal 0.0-0.7 [facility] Comment on above: Performed By: #### C BC ####[facility] Bpvgvtnfhy4784[address] [place], [place] [address]Dr. Airam Deuce Eosinophils/100 WBC (Bld) 2.1 % Normal 0.9-7.0 [facility] Comment on above: Performed By: #### C BC ####[facility] Fmjpfhdoeg5717[address] [place], [place] [address]Dr. Airam Deuce Erythrocyte distribution width (RBC) [Ratio] 13.1 % Normal 11.0-15.0 [facility] Comment on above: Performed By: #### C BC ####[facility] Sdqpqbspud5494 [place] [address]DrKianna Tripathi Hematocrit (Bld) [Volume fraction] 33.8 % Critically low 36.0-48.0 [facility] Comment on above: Performed By: #### C BC ####[facility] Egjdmwtjyu3461 [place] [address]DrKianna Tripathi Hemoglobin (Bld) [Mass/Vol] 10.7 g/dL Critically low 12.0-16.0 [facility] Comment on above: Performed By: #### C BC ####[facility] Swkcobtmsf0549[address] [place], [place] [address]DrKianna Tripathi IG # 0.02 10e3/ul Normal 0.00-0.03 [facility] Comment on above: Performed By: #### C BC ####[facility] Okrfijjepl2450[address] [place], [place] [address]DrKianna Tripathi IG % 0.3 % Normal 0.0-0.5 [facility] Comment on above: Performed By: #### C BC ####[facility] Lkndpmsgah958[address] [place], [place] [address]DrKianna Tripathi LYMPH # 1.2 103/ul Normal 1.2-3.8 [facility] Comment on above: Performed By: #### C BC ####[facility] Bcnjsjsjyh2459[address] [place], [place] [address]DrKianna Tripathi Lymphocytes/100 WBC (Bld) 17.3 % Critically low 20.5-60.0 [facility] Comment on above: Performed By: #### C BC ####[facility] Gfurpctxmq646[address] [place], [place] [address]DrKianna Tripathi MANUAL DIFF REQ NO Normal [facility] Comment on above: Performed By: #### C BC ####[facility] Wpnkyfbyrn6594[address] [place], [place] [address]DrKianna Tripathi MCH (RBC) [Entitic mass] 30.2 pg Normal 26.7-34.0 [facility] Comment on above: Performed By: #### C BC ####[facility] Zbxnjlpwhc9761 [place] [address]Dr. Airam Tripathi MCHC (RBC) [Mass/Vol] 31.7 g/dL Normal 29.9-35.2 [facility] Comment on above: Performed By: #### C BC ####[facility] Eogkeyrxmu8048 [place] [address]Dr. Airam Tripathi MCV (RBC) [Entitic vol] 95.5 fL Normal 81.0-99.0 [facility] Comment on above: Performed By: #### C BC ####[facility] Dzaaifaanm1356[address] [place], [place] [address]DrKianna Tripathi MONO # 0.5 103/ul Normal 0.3-0.8 [facility] Comment on above: Performed By: #### C BC ####[facility] Svoehpisll728[address] [place], [place] [address]Dr. Airam Tripathi Monocytes/100 WBC (Bld) 6.8 % Normal 1.7-12.0 [facility] Comment on above: Performed By: #### C BC ####[facility] Jktfiiufgg4450[address] [place], [place] [address]DrKianna Tripathi NEUT # 4.9 103/ul Normal 1.4-6.5 [facility] Comment on above: Performed By: #### C BC ####[facility] Jqixzcjtry5017[address] [place], [place] [address]Dr. Airam Tripathi Neutrophils/100 WBC (Bld) 72.9 % Normal 43.0-75.0 [facility] Comment on above: Performed By: #### C BC ####[facility] Nrgfwafdrw8730[address] [place], [place] [address]DrKianna Tripathi Platelet mean volume (Bld) [Entitic vol] 9.0 fL Critically low 9.5-13.5 [facility] Comment on above: Performed By: #### C BC ####[facility] Dwtvswnlty112[address] [place], [place] [address]Dr. Airam Tripathi PLT 297 103/ul Normal 150-450 [facility] Comment on above: Performed By: #### C BC ####[facility] Owbvshmdjh3107 [place] [address]Dr. Airam Deuce RBC 3.54 106/ul Critically low 4.20-5.40 [facility] Comment on above: Performed By: #### C BC ####[facility] Xmfpncmkrv5682 [place] [phone]. Airam Tripathi WBC 6.8 103/ul Normal 4.0-11.0 [facility] Comment on above: Performed By: #### C BC ####[facility] Cctcqvduux4698 [place] [address]Dr. Airam Tripathi PROF 14(COMP METB)on 022 Albumin [Mass/Vol] 3.2 g/dL Critically low 3.4-5.0 [facility] Comment on above: Performed By: #### C MP ####[facility] Bbdvvjhkry6067[address] [place], [place] [address]Dr. Airam Tripathi Albumin/Globulin [Mass ratio] 1.0 {ratio} Normal [facility] Comment on above: Performed By: #### C MP ####[facility] Hiswiowrpq7412[address] [place], [place] [address]Dr. Airam Tripathi ALP [Catalytic activity/Vol] 109 U/L Normal 46-116 [facility] Comment on above: Performed By: #### C MP ####[facility] Jxbygmrdid4849 [place] [address]Dr. Airam Tripathi ALT [Catalytic activity/Vol] 23 U/L Normal 14-59 [facility] Comment on above: Performed By: #### C MP ####[facility] Sthdgqafze5880 [place] [address]Dr. Airam Tripathi Anion gap [Moles/Vol] 11.6 mmol/L Normal [facility] Comment on above: Performed By: #### C MP ####[facility] Lebmbjxblu4538 [place] [address]Dr. Airam Tripathi AST [Catalytic activity/Vol] 24 U/L Normal 15-37 [facility] Comment on above: Performed By: #### C MP ####[facility] Qgsyenxluh2304 [place] [address]Dr. Airam Tripathi Bilirubin [Mass/Vol] 0.2 mg/dL Normal 0.2-1.0 [facility] Comment on above: Performed By: #### C MP ####[facility] Gfnbhnimmo6095 [place] [address]Dr. Airam Tripathi Calcium [Mass/Vol] 8.6 mg/dL Normal 8.5-10.1 [facility] Comment on above: Performed By: #### C MP ####[facility] Bzgabsxivt0487[address] [place], [place] [address]Dr. Airam Tripathi Chloride [Moles/Vol] 100 mmol/L Normal 98-107 [facility] Comment on above: Performed By: #### C MP ####[facility] Ucscyoopyy1797[address] [place], [place] [address]Dr. Airam Tripathi CO2 [Moles/Vol] 24.7 mmol/L Normal 21.0-32.0 [facility] Comment on above: Performed By: #### C MP ####[facility] Zxnwrabdbc746[address] [place], [place] [address]Dr. Airam Tripathi Creatinine [Mass/Vol] 1.11 mg/dL Critically high 0.55-1.02 [facility] Comment on above: Performed By: #### C MP ####[facility] Ejmhucmtvu565[address] [place], [place] [address]Dr. Airam Deuce EGFR-AF SLOVENIAN >60 Normal >=60 [facility] Comment on above: Performed By: #### C MP ####[facility] Nlcxhjhwki2234 [place] [phone]. Airam Deuce EGFR-NON AF SLOVENIAN 50 mL/min/1.73m2 Critically low >=60 [facility] Comment on above: Performed By: #### C MP ####[facility] Xzzaxrbkhx9269[address] [place], [place] [address]Dr. Airam Deuce Globulin (S) [Mass/Vol] 3.1 g/dL Normal [facility] Comment on above: Performed By: #### C MP ####[facility] Pndtmryqbz5796 [place] [address]Dr. Airam Tripathi Glucose [Mass/Vol] 79 mg/dL Normal 74-106 [facility] Comment on above: Performed By: #### C MP ####[facility] Alclwcmika7597 [place] [address]Dr. Airam Tripathi Potassium [Moles/Vol] 5.3 mmol/L Critically high 3.5-5.1 [facility] Comment on above: Performed By: #### C MP ####[facility] Wqemknqwli5794 [place] [address]Dr. Airam Tripathi Protein [Mass/Vol] 6.3 g/dL Critically low 6.4-8.2 [facility] Comment on above: Performed By: #### C MP ####[facility] Qlpdjgocjd28[address] [place], [place] [address]Dr. Airam Tripathi Sodium [Moles/Vol] 131 mmol/L Critically low 136-145 Th [facility] Comment on above: Performed By: #### C MP ####[facility] Vzmjfsoftq3894[address] [place], [place] [address]Dr. Airam Deuce Urea nitrogen [Mass/Vol] 20.0 mg/dL Critically high 7.0-18.0 [facility] Comment on above: Performed By: #### C MP ####[facility] Rmrnurdrcv7[address] [place], [place] [address]Dr. Airam Deuce Urea nitrogen/Creatinine [Mass ratio] 18.0 mg/mg Normal [facility] Comment on above: Performed By: #### C MP ####[facility] Xfnxnnutmg[address] [place] [place], [place] [address]Dr. Airam Deuce OSMOLALITYon 12-09-2021 Osmolality [Osmolality] 279 mosm/kg Normal 275-295 [facility] Comment on above: Performed By: #### O SMO ####[facility] [address]utt[address]ch[address] [place], [place] [address]Dr. Airam Deuce CBC AUTO DIFFon 12-07-2021 BASO # 0.0 103/ul Normal 0.0-0.1 [facility] Comment on above: Performed By: #### C BC ####[facility] [address]wpt[address] [place] [address]Dr. Selenaneil Tripathi Basophils/100 WBC (Bld) 0.5 % Normal 0.2-2.0 [facility] Comment on above: Performed By: #### C BC ####[facility] Ryummrhylk[address] [place], [place] [address]Dr. Airam Tripathi EO # 0.4 103/ul Normal 0.0-0.7 [facility] Comment on above: Performed By: #### C BC ####[facility] Lysseibehp734[address] [place], [place] [address]Dr. Airam Tripathi Eosinophils/100 WBC (Bld) 6.3 % Normal 0.9-7.0 [facility] Comment on above: Performed By: #### C BC ####[facility] Gcuwaoduor80[address] [place], [place] [address]Dr. Airam Tripathi Erythrocyte distribution width (RBC) [Ratio] 13.3 % Normal 11.0-15.0 [facility] Comment on above: Performed By: #### C BC ####[facility] [address]oxdnk[address] [place], [place] [address]Dr. Selenaneil Deuce Hematocrit (Bld) [Volume fraction] 29.5 % Critically low 36.0-48.0 [facility] Comment on above: Performed By: #### C BC ####[facility] Zddzvsycfl[address] [place], [place] [address]Dr. Airam Deuce Hemoglobin (Bld) [Mass/Vol] 9.1 g/dL Critically low 12.0-16.0 [facility] Comment on above: Performed By: #### C BC ####[facility] Pdxvaqgyuw[address] [place], [place] [address]Dr. Airam Tripathi IG # 0.04 10e3/ul Critically high 0.00-0.03 [facility] Comment on above: Performed By: #### C BC ####[facility] Tzajsycgmi[address] [place], [place] [address]Dr. Airam Tripathi IG % 0.7 % Critically high 0.0-0.5 [facility] Comment on above: Performed By: #### C BC ####[facility] Cqfdxpdjxu6967 [place] [address]DrKianna Tripathi LYMPH # 1.3 103/ul Normal 1.2-3.8 [facility] Comment on above: Performed By: #### C BC ####[facility] Mkublnnfoo232[address] [place] [address]DrKianna Tripathi Lymphocytes/100 WBC (Bld) 20.9 % Normal 20.5-60.0 [facility] Comment on above: Performed By: #### C BC ####[facility] Txrjcnjojt[address] [place], [place] [address]DrKianna Tripathi MANUAL DIFF REQ NO Normal [facility] Comment on above: Performed By: #### C BC ####[facility] Dcckaikswg4[address] [place], [place] [address]DrKianna Tripathi MCH (RBC) [Entitic mass] 30.1 pg Normal 26.7-34.0 [facility] Comment on above: Performed By: #### C BC ####[facility] Sieuqrfxnx845[address] [place], [place] [address]Dr. Airam Deuce MCHC (RBC) [Mass/Vol] 30.8 g/dL Normal 29.9-35.2 [facility] Comment on above: Performed By: #### C BC ####[facility] Hyremqszmu87[address] [place], [place] [address]DrKianna Tripathi MCV (RBC) [Entitic vol] 97.7 fL Normal 81.0-99.0 [facility] Comment on above: Performed By: #### C BC ####[facility] Iakcnqzssk[address] [place], [place] [address]DrKianna Tripathi MONO # 0.4 103/ul Normal 0.3-0.8 [facility] Comment on above: Performed By: #### C BC ####[facility] Zhfbwcdube10[address] [place], [place] [address]DrKianna Tripathi Monocytes/100 WBC (Bld) 6.6 % Normal 1.7-12.0 [facility] Comment on above: Performed By: #### C BC ####[facility] Mxptyuvobg8602 [place] [address]Dr. Selenaneil Tripathi NEUT # 4.0 103/ul Normal 1.4-6.5 [facility] Comment on above: Performed By: #### C BC ####[facility] Odarnakydj7751 [place] [address]DrKianna Tripathi Neutrophils/100 WBC (Bld) 65.0 % Normal 43.0-75.0 [facility] Comment on above: Performed By: #### C BC ####[facility] Povhonneze6646 [place] [address]DrKianna Tripathi Platelet mean volume (Bld) [Entitic vol] 9.4 fL Critically low 9.5-13.5 [facility] Comment on above: Performed By: #### C BC ####[facility] Kibsdelpuh[address] [place], [place] [address]Dr. Airam Tripathi PLT 224 103/ul Normal 150-450 [facility] Comment on above: Performed By: #### C BC ####[facility] Kuajjccxmv8[address] [place], [place] [address]DrKianna Tripathi RBC 3.02 106/ul Critically low 4.20-5.40 [facility] Comment on above: Performed By: #### C BC ####[facility] Ivynwnuawk[address] [place], [place] [address]DrKianna Tripathi WBC 6.1 103/ul Normal 4.0-11.0 [facility] Comment on above: Performed By: #### C BC ####[facility] Qfubumnlfi[address] [place], [place] [address]DrKianna Tripathi PROF 14(COMP METB)on 022 Albumin [Mass/Vol] 2.8 g/dL Critically low 3.4-5.0 [facility] Comment on above: Performed By: #### C MP ####[facility] Mpfjgghbyt[address] [place], [place] [address]DrKianna Tripathi Albumin/Globulin [Mass ratio] 1.1 {ratio} Normal [facility] Comment on above: Performed By: #### C MP ####[facility] Tlejeebbso4406 [place] [address]Dr. Airam Deuce ALP [Catalytic activity/Vol] 116 U/L Normal 46-116 [facility] Comment on above: Performed By: #### C MP ####[facility] Ymzotmbcqd3857 [place] [address]Dr. Selenaneil Tripathi ALT [Catalytic activity/Vol] 23 U/L Normal 14-59 [facility] Comment on above: Performed By: #### C MP ####[facility] Wrgqvyfkfx[address] [place], [place] [address]Dr. Airam Tripathi Anion gap [Moles/Vol] 12.1 mmol/L Normal [facility] Comment on above: Performed By: #### C MP ####[facility] Zsyqgnktve[address] [place], [place] [address]Dr. Airam Tripathi AST [Catalytic activity/Vol] 23 U/L Normal 15-37 [facility] Comment on above: Performed By: #### C MP ####[facility] Yusazxsiii6[address] [place], [place] [address]Dr. Airam Tripathi Bilirubin [Mass/Vol] 0.2 mg/dL Normal 0.2-1.0 [facility] Comment on above: Performed By: #### C MP ####[facility] Foagiixdnv[address] [place], [place] [address]Dr. Airam Tripathi Calcium [Mass/Vol] 8.1 mg/dL Critically low 8.5-10.1 [facility] Comment on above: Performed By: #### C MP ####[facility] Jkltkrqhph8[address] [place], [place] [address]Dr. Airam Tripathi Chloride [Moles/Vol] 105 mmol/L Normal 98-107 [facility] Comment on above: Performed By: #### C MP ####[facility] Kjbxeodbxq07[address] [place], [place] [address]Dr. Airam Tripathi CO2 [Moles/Vol] 22.1 mmol/L Normal 21.0-32.0 [facility] Comment on above: Performed By: #### C MP ####[facility] Ndjpqjtliu9652 [place] [address]Dr. Airam Tripathi Creatinine [Mass/Vol] 1.06 mg/dL Critically high 0.55-1.02 [facility] Comment on above: Performed By: #### C MP ####[facility] Gbsskqnlid3161 [place] [address]Dr. Airam Deuce EGFR-AF SLOVENIAN >60 Normal >=60 [facility] Comment on above: Performed By: #### C MP ####[facility] Qxenpppxah9188 [place] [address]Dr. Airam Deuce EGFR-NON AF SLOVENIAN 53 mL/min/1.73m2 Critically low >=60 [facility] Comment on above: Performed By: #### C MP ####[facility] Jkfnxtpdww0575 [place] [address]Dr. Airam Deuce Globulin (S) [Mass/Vol] 2.6 g/dL Normal [facility] Comment on above: Performed By: #### C MP ####[facility] Bquvigvsuu8239 [place] [address]Dr. Airam Tripathi Glucose [Mass/Vol] 109 mg/dL Critically high 74-106 [facility] Comment on above: Performed By: #### C MP ####[facility] Jvtvdpkvqw4389 [place] [address]Dr. Airam Deuce Potassium [Moles/Vol] 4.2 mmol/L Normal 3.5-5.1 [facility] Comment on above: Performed By: #### C MP ####[facility] Yukzjfrmoa6441 [place] [address]Dr. Airam Tripathi Protein [Mass/Vol] 5.4 g/dL Critically low 6.4-8.2 [facility] Comment on above: Performed By: #### C MP ####[facility] Xfgavbeusa0896 [place] [address]Dr. Airam Deuce Sodium [Moles/Vol] 135 mmol/L Critically low 136-145 [facility] Comment on above: Performed By: #### C MP ####[facility] Xjomtzyjyp2698 [place], [place] [address]Pc. Airam Tripathi Urea nitrogen [Mass/Vol] 15.0 mg/dL Normal 7.0-18.0 [facility] Comment on above: Performed By: #### C MP ####[facility] Hanufkjfdf5759 [place], [place] [address]Pr. Airam Tripathi Urea nitrogen/Creatinine [Mass ratio] 14.2 mg/mg Normal [facility] Comment on above: Performed By: #### C MP ####[facility] Lzbppeohim8549 [place], [place] [address]Px. Airam Tripathi Operative Reporton Operative Report MR#: [id number] [facility] Pt. Name: Mabel Moser Room #: 0C [...] subscapularis. 3. Right shoulder proximal biceps tenotomy. TECHNICAL TESTING ENGINEER: Alex Serra M.D. ANESTHESIA: General. INDICATIONS: The [...] Reza M.D. Date Trans: 08/19/2021 11:37 Ivy/carter [id number] cc: Angle Santana M.D. [address] [place] [address] Normal [facility] POC GLUCOSE LABon 08-19-2021 Glucose [Mass/Vol] 77 mg/dL Normal 70-100 [facility] Comment on above: Performed By: #### 8 5499 #### [facility] [address] [place] [place], [place] [address] [place] [address] 04-05-2021 CNPN Telephone (HEMASA) ----- MABEL MOSER ([id number]) 1960 F Date Time Provider Department 04/05/21 YEVGENIY FORD During your visit today, we recorded the following information about you: Chana Gallegos [facility] 04/05/2021 7:57 AM Signed Records faxed to the cancer center at [facility]. Patient to follow with Dr. Liu. Release [...] Encounter Status:Closed by CHANA LEE on 04/05/21 [facility] OBSOLETEon 01-11-2021 OBSOLETE Refill (HEMASA) ----- MABEL MOSER ([id number]) 1960 F Date Time Provider Department 01/11/21 [...] Status:Closed by YEVGENIY FORD on 01/12/21 [facility] Vital Signs Date Time Vital Sign Value Performing Clinician Facility 07-03-2023 12:00-0500 Body temperature 97.9 [degF] MD Angle Santana Work Phone: [facility] 07-03-2023 12:00-0500 Diastolic blood pressure 71 mm[Hg] MD Angle Santana Work Phone: [facility] 07-03-2023 12:00-0500 Heart rate 68 /min MD Angle Santana Work Phone: [facility] 07-03-2023 12:00-0500 Respiratory rate 16 /min MD Angle Santana Work Phone: [facility] 07-03-2023 12:00-0500 SaO2% (BldA) [Mass fraction] 100 % MD Angle Santana Work Phone: [facility] 07-03-2023 12:00-0500 Systolic blood pressure 121 mm[Hg] MD Angle Santana Work Phone: [facility] 07-03-2023 04:49-0500 Body weight 85.8 kg MD Angle Santana Work Phone: [facility] 06-30-2023 14:44-0500 Body height 157.48 cm MD Angle Santana Work Phone: [facility] 04-04-2023 16:20-0400 Body height 158.75 cm Raeann [employer] Other [employer] [facility] [employer] Other 04-04-2023 16:20-0400 Body mass index (BMI) [Ratio] 31.46 kg/m2 [place] [employer] Other [employer] Other 04-04-2023 16:20-0400 Body temperature 98 [degF] Raeann [employer] Other [employer] Other 04-04-2023 16:20-0400 Body weight 79.29 kg Raeann [employer] Other [employer] Other 04-04-2023 16:20-0400 Diastolic blood pressure 81 mm[Hg] Azariel [employer] Other [employer] Other 04-04-2023 16:20-0400 Respiratory rate 18 /min [place] [employer] [employer] Other [employer] Other 04-04-2023 16:20-0400 SaO2% (BldA) [Mass fraction] 98 % Raeann Kirkpatrick Other [facility] [employer] Other 04-04-2023 16:20-0400 Systolic blood pressure 133 mm[Hg] Raeann Kirkpatrick Other [facility] [employer] Other 10-28-2022 22:23-0400 Body temperature 97.4 [degF] MD Angle Santana Work Phone: [facility] 10-28-2022 22:00-0400 Diastolic blood pressure 74 mm[Hg] MD Angle Santana Work Phone: [facility] 10-28-2022 22:00-0400 Heart rate 72 /min MD Angle Santana Work Phone: [facility] 10-28-2022 22:00-0400 Respiratory rate 20 /min MD Angle Santana Work Phone: [facility] 10-28-2022 22:00-0400 SaO2% (BldA) [Mass fraction] 97 % MD Angle Santana Work Phone: [facility] 10-28-2022 22:00-0400 Systolic blood pressure 169 mm[Hg] MD Angle Santana Work Phone: [facility] 10-28-2022 17:54-0400 Body height 157.48 cm MD Angle Santana Work Phone: [facility] 10-28-2022 17:54-0400 Body weight 83.7 kg MD Angle Santana Work Phone: [facility] 09-27-2022 12:00-0400 Body height 158.75 cm Raeann Mishrajohnnie Other [facility] [employer] Other 09-27-2022 12:00-0400 Body mass index (BMI) [Ratio] 31.78 kg/m2 Raeann Kirkpatrick Other [employer] Other 09-27-2022 12:00-0400 Body temperature 96.1 [degF] Aziz Bakkendalls Other [employer] Other 09-27-2022 12:00-0400 Body weight 80.11 kg Azariel Bakhous Other [employer] Other 09-27-2022 12:00-0400 Diastolic blood pressure 82 mm[Hg] Aziz Bakhous Other [employer] Other 09-27-2022 12:00-0400 Respiratory rate 18 /min Azariel Bakhous Other [employer] Other 09-27-2022 12:00-0400 SaO2% (BldA) [Mass fraction] 99 % Aziz Bakhous Other [employer] Other 09-27-2022 12:00-0400 Systolic blood pressure 140 mm[Hg] Aziz Bakhous Other [employer] Other 04-12-2022 14:00-0400 Body height 158.75 cm Azariel Bakhous Other [employer] Other 04-12-2022 14:00-0400 Body mass index (BMI) [Ratio] 30.13 kg/m2 Aziz Bakhous Other [employer] Other 04-12-2022 14:00-0400 Body temperature 97.6 [degF] Aziz Bakhous Other [employer] Other 04-12-2022 14:00-0400 Body weight 75.93 kg Aziz Bakhous Other [employer] Other 04-12-2022 14:00-0400 Diastolic blood pressure 95 mm[Hg] Raeann Kirkpatrick Other [employer] Other 04-12-2022 14:00-0400 Respiratory rate 18 /min Raeann Kirkpatrick Other [employer] Other 04-12-2022 14:00-0400 SaO2% (BldA) [Mass fraction] 98 % Raeann Kirkpatrick Other [employer] Other 04-12-2022 14:00-0400 Systolic blood pressure 175 mm[Hg] Raeann Kirkpatrick Other [employer] Other 06-16-2021 16:20-0500 Body height 158.75 cm Los Grissom Other [employer] Other 06-16-2021 16:20-0500 Body mass index (BMI) [Ratio] 30.88 kg/m2 Los Grissom Other [employer] Other 06-16-2021 16:20-0500 Body temperature 96.4 [degF] Los Grissom Other [employer] Other 06-16-2021 16:20-0500 Body weight 77.84 kg Los Rascongerald Other [employer] Other 06-16-2021 16:20-0500 Diastolic blood pressure 88 mm[Hg] Los Rascongerald Other [employer] Other 06-16-2021 16:20-0500 Respiratory rate 18 /min Los Grissom Other [employer] Other 06-16-2021 16:20-0500 SaO2% (BldA) [Mass fraction] 99 % Los Grissom Other [employer] Other 06-16-2021 16:20-0500 Systolic blood pressure 137 mm[Hg] Los Grissom Other [employer] Other Encounters Encounter Date Encounter Type Care Provider Facility Start: 03-05-2024 ambulatory Migel MCKINNEY Facility :[facility] Start: 01-22-2024 End: 01-30-2024 Evaluation and management of inpatient ANGLE M [facility] Start: 12-21-2023 End: 12-21-2023 ambulatory [facility] Start: 10-13-2023 ambulatory [facility] Start: 09-30-2023 End: 10-01-2023 Evaluation and management of inpatient BALJINDER HUGHES [facility] Start: 08-16-2023 End: 08-16-2023 ambulatory MACIE [facility] Start: 08-01-2023 Evaluation and management of inpatient RAYRAY HARP [facility] Start: 08-01-2023 Evaluation and management of inpatient RAYRAY HARP [facility] Start: 07-31-2023 [facility] Start: 07-31-2023 Evaluation and management of inpatient STEPHANIE [facility] Start: 07-31-2023 Evaluation and management of inpatient JUDAH QUIROZ [facility] Start: 07-28-2023 Evaluation and management of inpatient RACHEL COHEN [facility] Start: 07-28-2023 End: 08-03-2023 Evaluation and management of inpatient [facility] Start: 07-13-2023 ambulatory [facility] Start: 07-11-2023 End: 07-11-2023 ambulatory Aziz Bakhous Other [employer] Other Start: 07-11-2023 Telephone encounter Aziz Bakhous [facility] Start: 06-29-2023 End: 07-03-2023 Evaluation and management of inpatient Jim Randhawa Facility:[facility] Start: 06-29-2023 End: 07-03-2023 Evaluation and management of inpatient MD Angle Santana Work Phone: [facility] Work Phone: Start: 04-04-2023 End: 04-04-2023 ambulatory Aziz Bakhous Other [employer] Other Start: 04-04-2023 Office outpatient visit 25 minutes Aziz Bakhous [facility] Start: 04-03-2023 End: 04-03-2023 ambulatory Aziz Bakhous Other [employer] Other Start: 04-03-2023 Telephone encounter Aziz Bakhous [facility] Start: 02-22-2023 End: 02-22-2023 ambulatory RHIANNON BERNARD [facility] Start: 02-16-2023 ambulatory DUNCAN SONNY [facility] Start: 12-12-2022 End: 12-12-2022 ambulatory Aziz Bakhous Other [employer] Other Start: 12-12-2022 Telephone encounter Aziz Bakhous [facility] Start: 12-08-2022 End: 12-08-2022 ambulatory Aziz Bakhous Other [employer] Other Start: 12-08-2022 Telephone encounter Aziz Bakhous [...] 10-29-2022 Emergency department patient visit Favian Helm Facility:[facility] Start: 10-28-2022 End: 10-28-2022 Emergency department patient visit MD Angle Santana Work Phone: [facility] Work Phone: Start: 10-27-2022 End: 10-28-2022 ambulatory SADIE DEL CASTILLO . Facility:[facility] Start: 10-25-2022 End: 10-26-2022 Evaluation and management of inpatient DR ANLGE SANTANA . Facility:[facility] Start: 10-19-2022 End: 10-19-2022 [...] Facility:[facility] Start: 09-27-2022 End: 09-27-2022 [facility] [employer] Other Start: 09-27-2022 Office outpatient visit 25 minutes Raeann Kirkpatrick [facility] [place] Start: 09-21-2022 End: 09-22-[address] ANGLE SANTANA . Facility:[facility] Start: 09-20-2022 End: 09-21-2022 ambulatory NARENDRANBARBI MURILLOSHMIPATHY . Facility:[facility] Start: 09-19-2022 End: 09-20-[address] ANGLE SANTANA . Facility:[facility] Start: 09-19-2022 End: 09-20-2022 ambulatory RAEANN KIRKPATRICK Facility:[facility] Start: 08-24-2022 End: 09-12-[address] ANGLE SANTANA . Facility:[facility] Start: 08-23-2022 End: 08-23-2022 ambulatory Sue Leiva Other [employer] Other Start: 08-23-2022 Office outpatient ne w 30 minutes Sue Leiva [facility] Start: 08-16-2022 End: 08-17-[address] [...] 04-12-2022 End: 04-12-2022 ambulatory Raeann Kirkpatrick Other [place] Other Start: 04-12-2022 Office outpatient visit 25 minutes Donnieariel Mishrajohnnie [facility] [place] Start: 04-06-[address] [...] Start: 01-10-2022 End: 01-11-2022 ambulatory Robert Johnston Facility:[facility] Start: 01-06-2022 End: 01-07-[address] ANGLE SANTANA . Facility:[facility] Start: 12-30-2021 End: 01-19-[address] ANGLE SANTANA . Facility:[facility] Start: 12-23-2021 End: 12-24-2021 ambulatory NNAMDI DEJESUS . Facility:[facility] Start: 12-07-2021 End: 12-22-[address] ANGLE SANTANA . Facility:[facility] Start: 12-07-2021 End: 12-07-[address] ANGLE SANTANA . Facility:[facility] Start: 08-19-2021 End: 08-20-2021 ambulatory CARLOS REZA Facility:[facility] Start: 06-16-2021 End: 06-16-2021 ambulatory Los Grissom Other [facility] [employer] Other Start: 06-16-2021 Office outpatient visit 25 minutes Los Grissom [facility] Start: 01-14-2019 End: 01-14-2019 Patient encounter procedure [facility] Start: 12-03-2018 End: 12-03-2018 Patient encounter procedure [facility] Procedures Date Procedure Procedure Detail Performing [...] Date Care Activity Detail Author Start: 07-03-2023 [facility] Start: 06-29-2023 Hospital admission [facility] Start: 06-29-[address] inside [address]r [facility] Blood chemistry [facility] Patient Education [facility] Work Phone: Patient referral [facility] Work Phone: Payers Date Payer Category Payer Medicare [id number] 2022 Self-pay [id number] 2017 Medicare [id number] 2017 Unknown [id number] 1960 Unknown [id number] 2.16.8 40.1.414062.3.579.2.173 1960 Unknown [id number] 2.16.8 40.1.878910.3.579.2.173 1960 Unknown [id number] 2.16.8 40.1.227810.3.579.2.647 1960 Unknown [id number] 2.16.8 40.1.556850.3.579.2.647 1960 Unknown [id number] 2.16.84 0.1.584541.3.579.2.593 1960 Unknown [id number] 2.16.84 0.1.651955.3.579.2.593 1962 Unknown [id number] 2.16.84 0.1.241944.3.579.2.593 1962 Unknown [id number] 2.16.84 0.1.722843.3.579.2.593 1962 Unknown [id number] 2.16.84 0.1.830975.3.579.2.593 1962 Unknown [id number] 2.16.84 0.1.719657.3.579.2.593 1962 Unknown [id number] 2.16.84 0.1.341265.3.579.2.593 1962 Unknown [id number] 2.16.84 0.1.957835.3.579.2.593 1962 Unknown [id number] 2.16.84 0.1.250129.3.579.2.593 1962 Unknown [id number] 2.16.84 0.1.034366.3.579.2.593 1962 Unknown [id number] 2.16.84 0.1.041373.3.579.2.593 1962 Unknown [id number] 2.16.84 0.1.858903.3.579.2.593 1962 Unknown [id number] 2.16.84 0.1.282719.3.579.2.593 1962 Unknown [id number] 2.16.84 0.1.880051.3.579.2.593 1962 Unknown [id number] 2.16.84 0.1.204561.3.579.2.593 1962 Unknown [id number] 2.16.84 0.1.470459.3.579.2.593 1962 Unknown [id number] 2.16.84 0.1.733751.3.579.2.593 1962 Unknown [id number] 2.16.84 0.1.978858.3.579.2.593 1962 Unknown [id number] 2.16.84 0.1.349255.3.579.2.593 1962 Unknown [id number] 2.16.84 0.1.382173.3.579.2.593 1962 Unknown [id number] 2.16.84 0.1.699595.3.579.2.593 1962 Unknown [id number] 2.16.84 0.1.543792.3.579.2.593 1962 Unknown [id number] 2.16.84 0.1.004795.3.579.2.593 1962 Unknown [id number] 2.16.84 0.1.875628.3.579.2.593 1962 Unknown [id number] 2.16.84 0.1.305852.3.579.2.593 1962 Unknown [id number] 2.16.84 0.1.808772.3.579.2.593 1962 Unknown [id number] 2.16.84 0.1.475873.3.579.2.593 1962 Unknown [id number] 2.16.84 0.1.735303.3.579.2.593 1962 Unknown [id number] 2.16.84 0.1.934814.3.579.2.593 1962 Unknown [id number] 2.16.84 0.1.570280.3.579.2.593 1962 Unknown [id number] 2.16.84 0.1.059803.3.579.2.593 1962 Unknown [id number] 2.16.84 0.1.457910.3.579.2.593 1962 Unknown [id number] 2.16.84 0.1.064071.3.579.2.593 1962 Unknown [id number] 2.16.84 0.1.929750.3.579.2.593 1962 Unknown [id number] 2.16.84 0.1.052476.3.579.2.593 1962 Unknown [id number] 2.16.84 0.1.164372.3.579.2.593 1962 Unknown [id number] 2.16.84 0.1.706743.3.579.2.593 1962 Unknown [id number] 2.16.84 0.1.436152.3.579.2.593 1962 Unknown [id number] 2.16.84 0.1.541177.3.579.2.593 1962 Unknown [id number] 2.16.84 0.1.739534.3.579.2.593 1962 Unknown [id number] 2.16.84 0.1.374960.3.579.2.593 1962 Unknown [id number] 2.16.84 0.1.054408.3.579.2.593 1962 Unknown [id number] 2.16.84 0.1.135299.3.579.2.593 1962 Unknown [id number] 2.16.84 0.1.867824.3.579.2.593 1962 Unknown [id number] 2.16.84 0.1.137118.3.579.2.593 1962 Unknown [id number] 2.16.84 0.1.257784.3.579.2.593 1962 Unknown [id number] 2.16.8 [id number] 1960 Unknown [id number] 2.16.8 [id number] 1960 Unknown [id number] 2.16. [id number] 1960 Unknown [id number] 2.16. [id number] 1957 Medicaid [id number] Unknown [id number] 2.1 [id number] Unknown [place] [employer]/BS [id number] Unknown [id number] 2.16.8 [id number] Unknown [id number] 2.16.8 [id number] Social History Date Type Detail Facility Unknown if ever smoked [employer] Other Sex Assigned At Sex Assigned At Bir th [facility] [employer] Other Start: 10-28-2022 End: 06-30-2023 Tobacco smoking status NHIS Never smoked tobacco (finding) [facility] Start: 1960 Sex Assigned At Female [facility] Goals Date Patient Goal Desired Activity /State Functional Status Date Assessment Result Facility 07-03-2023 Functional status Patient at Baseline [facility] Work Phone: Mental Status Date Assessment Result Facility 07-03-2023 Cognitive function Cognitive Sta tus Patient at Baseline [facility] Work Phone: Clinical Notes 06-16-2021 to 12-21-2023 Note Date & Type Note Facility 12-21-2023 Note [facility] Subjective Mabel Moser is a [...] side as late effect of cerebral infarction ([facility]) Pre-operative cardiovascular examination Acute on chronic systolic CHF (congestive heart failure) ([facility]/HCC) History of CVA in adulthood Hyperkalemia Hypomagnesemia Metabolic acidosis RENETTA (acute kidney injury) (CMS/HCC) Cardiorenal disease Acute heart failure (CMS/HCC) Polypharmacy Cerebral artery occlusion with cerebral infarction (CMS/HCC) Chronic CHF (congestive heart failure) ([facility]) Fall at home, initial encounter Irritable bowel syndrome Restless leg syndrome Traumatic closed fracture of C2 vertebra with minimal displacement, initial encounter ([facility]) Family History Family history unknown: Yes Social History Tobacco Use Smoking status: Never Smokeless tobacco: Never Substance Use Topics Alcohol use: Not Currently Drug use: Not Currently HPI Mabel is seen in follow-up. She is a 63-year-old woman with prior history of obesity status post bariatric surgery in 2000. In the past she was admitted to [facility] in 2019 with fluid overload and responded [...] recommended to t (more content not included)... [facility] 08-16-2023 Note [place] Electrophysiology Consult Note Reason for visit: HFU for acute CHF HPI: Mabel Moser is a 63 y.o. year old with past medical history of CHF, CKD IV, CAD, hypertension, GERD, hypothyroidism, CVA, seizure disorder, pulmonary hypertension, hx of DVT on eliquis. patient was admitted to [facility] for acute decompensated CHF 184# on scale at home, was 172# at [facility] but she feels well and appears compensated She is seeing lymph edema clinic twice a week, has follow up with inside wirer next week She has taken her PRN bumex dose once since discharge because she felt as though she did not have a lot of urine output that day but has improved since She is doing much better following fluid restriction of about 8182-4609 mls / day [facility] discharge summary 08/03/23 Hospital course: Mabel Moser is an 63 y.o. female who came from home with Past medical history of CHF, CKD IV, CAD, hypertension, GERD, hypothyroidism, CVA, seizure disorder, pulmonary hypertension, hx of DVT on eliquis presents to [facility] as a direct admission from [facility] with fluid overload. Patient reports worsening bilateral [...] Asthma CHF (congestive heart failure) ([facility]/HCC) Coronary artery disease Depression Gastroenteritis Heart valve disease Hypertension Kidney failure Lumbar spondylolysis Stroke ([facility]/HCC) PSH: Past Surgical History: Procedure Laterality Date [...] No Utilities: Not At Risk (07/28/2023) [facility] Utilities Threatened with loss of utilities: [...] and with ev (more content not included)... [facility] 08-16-2023 Note Patient here for [facility] for CHF. Entresto was stopped and [...] All other systems reviewed and are negative. [facility] 08-03-2023 Note ---- Attestation signed by Navi [...] stable. Patient is to follow-up with her inside wirer Navi Weems MD, PhD ---- Nephrology Progress [...] gastric bypass surgery who initially presented to [facility] with concerns for worsening lower extremity edema, after gaining 50 pounds within past week. Patient was evaluated by PCP who increased Bumex dose from 1 mg TID to 3 mg TID but patient had no improvement in symptoms. On presentation to [place], patient's creatinine was 4.55 (baseline 1.8-2), phosphorus 11.2, potassium 5.7, magnesium 1.8, hemoglobin 9.2 and BUN 122. Patient was initiated on Bumex drip but developed hypotension and was changed to IV pushes. Patient was subsequently transferred to [facility] Upon assessment at [facility], patient has downtrend in Cr to 3.64, [...] with meals desvenlafaxine, (more content not included)... [facility] 08-03-2023 Note Active with [facility] home care. Sent the AVS. 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 thyrotoxicosis Fluid overload Dehydration Cortical age-related cataract of left eye COVID-19 Displacement of lumbar intervertebral disc without myelopathy Edema of lower extremity Edema Orthopnea Dyspnea Endogenous obesity Essential tremor Chronic diastolic heart failure, NYHA class 2 ([facility]) H/O gastric bypass Gouty arthropathy Gastroesophageal reflux disease Full thickness rotator cuff tear Fibromyalgia Low back pain Hip pain Hyperparathyroidism due to renal insufficiency ([facility]) Hypocalcemia Hypertensive disorder Hypoglycemia Hyponatremia Hypothyroidism Impingement syndrome of shoulder region Insomnia Anemia due to vitamin B12 deficiency Pulmonary hypertension ([facility]) Other fatigue Osteoarthritis of knee Morbid (severe) obesity due to excess calories ([facility]) Left atrial enlargement Lumbosacral neuritis Lumbosacral spondylosis without myelopathy Intractable migraine without status migrainosus Migraine Rheumatic tricuspid valve regurgitation Vitamin D deficiency Tympanic membrane perforation, right Transient ischemic attack Thoracic neuritis Tear of right rotator cuff Swallowing problem Sunburn of second degree Status post tympanoplasty Sprain of shoulder Seizure disorder ([facility]) Polyneuropathy associated with critical illness ([facility]) Polyneuropathy Osteoarthritis of spine with radiculopathy, lumbar region Obesity (BMI 30.0-34.9) Lumbar paraspinal muscle spasm Lateral femoral cutaneous neuropathy, left Internal derangement of right shoulder History of total right knee replacement Hemiparesis, left ([facility]) Hemiparesis due to old stroke ([facility]) Difficulty walking Depression Constipation Abnormal blood chemistry 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 ([facility]) Pre-operative cardiovascular examination Acute on chronic systolic CHF (congestive heart failure) ([facility]) History of CVA in adulthood Hyperkalemia Hypomagnesemia Metabolic acidosis RENETTA (acute kidney injury) ([facility]) Cardiorenal disease Past Medical History: Diagnosis Date Anxiety Arthritis Asthma CHF (congestive heart failure) ([facility]) Coronary artery disease Depression Gastroenteritis Heart valve disease Hypertension Kidney failure Lumbar spondylolysis Stroke ([facility]) Past Surgical History: Procedure Laterality [...] shower Prior Level (more content not included)... [facility] 08-03-2023 Note Clinical Nutrition A ssessment: Name: Mabel Moser Room: [address] [place] [address] Date: 1960 Date of Visit: 08/03/23 Admission Dx: Acute on chronic systolic CHF (congestive heart failure) ([facility]) [I50.23] Reason for assessment: length of stay Information obtained from: patient, medical record, and nursing Past Medical History: Diagnosis Date Anxiety Arthritis Asthma CHF (congestive heart failure) ([facility]) Coronary artery disease Depression Gastroenteritis Heart valve disease Hypertension Kidney failure Lumbar spondylolysis Stroke ([facility]) Current Medications: amitriptyline, 300 mg, [...] endorses generally good po intake and appetite staff registered nurse that continues while inpatient. Pt reported that [...] Sensation: Tingling, Numbness LUE Sensation: Numbness, Tingling (Audiology Technician strength not assessed by RD) Patient at risk for malnutrition according to hospital criteria, but does not meet the clinical characteristics per the Academy of Nutrition (more content not included)... [facility] 08-03-2023 Note Occupational Therapy Occupational Therapy Evaluation [...] obesity due to excess calories ([facility]) Left atrial enlargement Lumbosacral neuritis Lumbosacral spondylosis without myelopathy Intractable migraine without status migrainosus Migraine Rheumatic tricuspid valve regurgitation Vitamin D deficiency Tympanic membrane perforation, right Transient ischemic attack Thoracic neuritis Tear of right rotator cuff Swallowing problem Sunburn of second degree Status post tympanoplasty Sprain of shoulder Seizure disorder ([facility]) Polyneuropathy associated with critical illness ([facility]) Polyneuropathy Osteoarthritis of spine with radiculopathy, lumbar region Obesity (BMI 30.0-34.9) Lumbar paraspinal muscle spasm Lateral femoral cutaneous neuropathy, left Internal derangement of right shoulder History of total right knee replacement Hemiparesis, left ([facility]) Hemiparesis due to old stroke ([facility]) Difficulty walking Depression Constipation Abnormal blood chemistry 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 ([facility]) Pre-operative cardiovascular examination Acute on chronic systolic CHF (congestive heart failure) ([facility]) History of CVA in adulthood Hyperkalemia Hypomagnesemia Metabolic acidosis RENETTA (acute kidney injury) ([facility]) Cardiorenal disease Past Medical History: Diagnosis Date Anxiety Arthritis Asthma CHF (congestive heart failure) ([facility]) Coronary artery disease Depression Gastroenteritis Heart valve disease Hypertension Kidney failure Lumbar spondylolysis Stroke ([facility]) Past Surgical History: Procedure Laterality [...] Occasional cues for (more content not included)... [facility] 08-03-2023 Note Hospital Medicine Discharge Summary Final Discharge Diagnosis: Acute on chronic systolic CHF (congestive heart failure) ([facility]/HCC) RENETTA on CKD IV Cardiorenal syndrome Mild pulmonary hypertension-as evidenced on most recent right heart cath (11/2022) Essential Hypertension Hypothyroidism Alpha-1 antitrypsin carrier Morbid obesity status post gastric bypass surgery in 1999 Admission Diagnosis: Acute on chronic systolic CHF (congestive heart failure) ([facility]) [I50.23] Hospital course: Mabel Moser is an 63 y.o. female who came from home with Past medical history of CHF, CKD IV, CAD, hypertension, GERD, hypothyroidism, CVA, seizure disorder, pulmonary hypertension, hx of DVT on eliquis presents to [facility] as a direct admission from [facility] with fluid overload. Patient reports worsening bilateral [...] Center 08/08/2023 11:40 AM Macie Garcia NP [facility] Your medication list START taking these [...] Medications These medications were sent to [facility] - [address] [place] [address] [address] [facility] [place] [address], [facility] [address] bumetanide 1 mg tablet carvedilol 6.25 mg tablet Mabel is allergic to betadine [povidone-iodine], cephalexin, ciprofloxacin, gabapentin, iodine, pregabalin, sulfa (sulfonamide antibiotics), sulfamethoxazole-trimethoprim, and amoxicillin-pot clavulanate. Disposition: Home-Health Care [facility] (06) Discharge Condition: Stable Code Status: Full [...] displayed. Chemistry: Resul (more content not included)... [facility] 08-02-2023 Note ---- Attestation signed by Navi [...] gastric bypass surgery who initially presented to [facility] with concerns for worsening lower extremity edema, after gaining 50 pounds within past week. Patient was evaluated by PCP who increased Bumex dose from 1 mg TID to 3 mg TID but patient had no improvement in symptoms. On presentation to [place], patient's creatinine was 4.55 (baseline 1.8-2), phosphorus 11.2, potassium 5.7, magnesium 1.8, hemoglobin 9.2 and BUN 122. Patient was initiated on Bumex drip but developed hypotension and was changed to IV pushes. Patient was subsequently transferred to [facility] Upon assessment at [facility], patient has downtrend in Cr to 3.64, [...] 100 mcg, or (more content not included)... [facility] 08-02-2023 Note Hospital Medicine Daily Progress Note - 08/02/2023 12:05 PM; Room: [address] [place] [address] Admission: 07/28/2023 4:37 PM; Length of stay: 5 days THE HOSPITALIST TEAM PREFERS TO USE [employer] CHAT FOR COMMUNICATION 7AM-7PM. IF I DO NOT RESPOND WITHIN 15 MINUTES, PLEASE PAGE ME/CALL THROUGH THE REAL ESTATE RECRUITER. FROM 7PM-7AM, PLEASE PAGE [phone](COVR) Code Status: Full Code Barriers to Discharge: [...] systolic CHF (congestive heart failure) ([facility]) Active Problems: Benign essential hypertension CKD (chronic kidney disease) stage 3, GFR 30-59 ml/min ([facility]) Coronary arteriosclerosis Gastroesophageal reflux disease Hypothyroidism Pulmonary hypertension ([facility]) Seizure disorder ([facility]) Obesity (BMI 30.0-34.9) History of CVA in adulthood Hyperkalemia Hypomagnesemia Metabolic acidosis RENETTA (acute kidney injury) ([facility]) Cardiorenal disease Assessment and Plan Acute decompensated HFpEF - Currently on diuresis with 80mg Lasix IV, BID. Considerable fluid status improvement - currently followed by cardiology and nephrology - TTE completed on 07/31 revealed an EF of 60% RENETAT with history CKD3 and uremia -Creatinine is [...] -- PLATELETS AU (more content not included)... [facility] 08-02-2023 Note Subjective Follow up for: lower extremity edema with orthopnea, heart failure exacerbation. HPI: Mabel Moser is a 63 y.o. female with PMH of alpha-1 antitrypsin carrier, HFpEF, CKD 3A, HTN, GERD, hypothyroidism, CVA, seizures, DVT (on Eliquis at home), morbid obesity s/p gastric bypass surgery who initially presented to [facility] with concerns for bilateral worsening lower extremity [...] duplex ultrasound. She was then transferred to [facility]. At [facility], her creatinine did improved slightly to 3.64, hemoglobin 8.5, troponin 0.01, BNP 265. She was initiated on IV Lasix 80 mg 3 times daily. Patient tells me that she did have a TTE performed at [facility] 2 months back but there [...] in the past she was admitted to [facility] in 2019 with fluid overload and responded [...] as though she is back to [place] She denies CP, worsened SOB, palpitations, lightheadedness [...] edema present. Sk (more content not included)... [facility] 08-01-2023 Note Subjective Follow up for: lower extremity edema with orthopnea, heart failure exacerbation. HPI: Mabel Moser is a 63 y.o. female with PMH of alpha-1 antitrypsin carrier, HFpEF, CKD 3A, HTN, GERD, hypothyroidism, CVA, seizures, DVT (on Eliquis at home), morbid obesity s/p gastric bypass surgery who initially presented to [facility] with concerns for bilateral worsening lower extremity [...] duplex ultrasound. She was then transferred to [facility]. At [facility], her creatinine did improved slightly to 3.64, hemoglobin 8.5, troponin 0.01, BNP 265. She was initiated on IV Lasix 80 mg 3 times daily. Patient tells me that she did have a TTE performed at [facility] 2 months back but there [...] in the past she was admitted to [facility] in 2019 with fluid overload and responded [...] takes less t (more content not included)... [facility] 08-01-2023 Note ---- Attestation signed by Navi [...] gastric bypass surgery who initially presented to [facility] with concerns for worsening lower extremity edema, after gaining 50 pounds within past week. Patient was evaluated by PCP who increased Bumex dose from 1 mg TID to 3 mg TID but patient had no improvement in symptoms. On presentation to [place], patient's creatinine was 4.55 (baseline 1.8-2), phosphorus 11.2, potassium 5.7, magnesium 1.8, hemoglobin 9.2 and BUN 122. Patient was initiated on Bumex drip but developed hypotension and was changed to IV pushes. Patient was subsequently transferred to [facility] Upon assessment at [facility], patient has downtrend in Cr to 3.64, [...] 100 mg, oral (more content not included)... [facility] 08-01-2023 Note 08/01/23 0959 Admission Assessment Questions Verify insurance with patient Yes ([facility] Medicare/[place] Medicaid) Do you understand medical disease or what brought you into the hospital? Yes ( I'm in kidney failure & I went into fluid overload ) Who is your current PCP? Angle Santana MD Can I schedule a follow up appointment for you at the time of discharge? No ( I go to [facility] for alot of my physicians ) Do you understand why you are taking your current medications? Yes Are you taking your medications as prescribed? Yes Did patient provide teach back? No Would you like use our pharmacy iMeds to fill your new medications at the time of Discharge? Yes Does the patient have a foster care case manager assigned to them through their insurance? No [...] SNF about 8 hrs ago & also [facility] in [place]) Assistive Device Cane;Grab bars;Raised toilet seat;Walker;Wheelchair (has [...] you able to send link and activate [employer]hart? MyChart already active Screen completed. Await medical stability: diurese with Lasix 80 mg IV q12hr (possibly transition to oral today), ?medically ready tomorrow, Check Renal US today, Creatine up 2.68 today<- 2.51<-3.64, Mag 1.8, Hgb 9.9<-9.1, Follow-up with Nephrology recommendations, Optimize HF medications. Dc Plan: Home, resume [facility], Await PT/OT evaluations today to make sure this is a safe dc plan. [facility] 08-01-2023 Note ---- Attestation signed by Rayray [...] Progress Note - 08/01/2023 11:05 AM; Room: [facility] Admission: 07/28/2023 4:37 PM; Length of stay: 4 days THE HOSPITALIST TEAM PREFERS TO USE [employer] CHAT FOR COMMUNICATION 7AM-7PM. IF I DO NOT RESPOND WITHIN 15 MINUTES, PLEASE PAGE ME/CALL THROUGH THE REAL ESTATE RECRUITER. FROM 7PM-7AM, PLEASE PAGE [phone](COVR) Code Status: Full Code Barriers to Discharge: [...] systolic CHF (congestive heart failure) ([facility]) Active Problems: Benign essential hypertension CKD (chronic kidney disease) stage 3, GFR 30-59 ml/min ([facility]) Coronary arteriosclerosis Gastroesophageal reflux disease Hypothyroidism Pulmonary hypertension ([facility]) Seizure disorder ([facility]) Obesity (BMI 30.0-34.9) History of CVA in adulthood Hyperkalemia Hypomagnesemia Metabolic acidosis RENETTA (acute kidney injury) ([facility]) Cardiorenal disease Assessment and Plan [...] CAD, Continue h (more content not included)... [facility] 07-31-2023 Note ---- Attestation signed by Rinku [...] She has no urgent need for [employer], she will need to follow up with her inside wirer upon discharge. ---- Nephrology Progress Note Patient [...] gastric bypass surgery who initially presented to [facility] with concerns for worsening lower extremity edema, after gaining 50 pounds within past week. Patient was evaluated by PCP who increased Bumex dose from 1 mg TID to 3 mg TID but patient had no improvement in symptoms. On presentation to [place], patient's creatinine was 4.55 (baseline 1.8-2), phosphorus 11.2, potassium 5.7, magnesium 1.8, hemoglobin 9.2 and BUN 122. Patient was initiated on Bumex drip but developed hypotension and was changed to IV pushes. Patient was subsequently transferred to [facility]. Upon assessment at [facility], patient has downtrend in Cr to 3.64, [...] shifts: In: 1350 (16.3 mL/kg) [P.O.:1350] Out: 82353 (128.3 mL/kg) [Urine:53280 (3.6 mL/kg/hr)] Weight: 83 kg Vital signs: [...] oxyCODONE, Insert periph (more content not included)... [facility] 07-31-2023 Note Subjective Follow up for: lower extremity edema with orthopnea, heart failure exacerbation. HPI: Mabel Moser is a 63 y.o. female with PMH of alpha-1 antitrypsin carrier, HFpEF, CKD 3A, HTN, GERD, hypothyroidism, CVA, seizures, DVT (on Eliquis at home), morbid obesity s/p gastric bypass surgery who initially presented to [facility] with concerns for bilateral worsening lower extremity [...] duplex ultrasound. She was then transferred to [facility]. At [facility], her creatinine did improved slightly to 3.64, hemoglobin 8.5, troponin 0.01, BNP 265. She was initiated on IV Lasix 80 mg 3 times daily. Patient tells me that she did have a TTE performed at [facility] 2 months back but there [...] in the past she was admitted to [facility] in 2019 with fluid overload and responded [...] Psychiatric: Mood an (more content not included)... [facility] 07-31-2023 Note Pt admitted to [facility] for acute on chronic systolic HF; hx of CHF, CKD 3, CAD, hypertension, GERD, hypothyroidism, CVA, seizure disorder, pulmonary hypertension, hx of DVT. Pt has echo scheduled. I will wait for current echo results to determine pt's eligibility to participate in cardiac rehab (CR) therapy with HF diagnosis and follow up with pt, if appropriate. ALECIA Franco purchase price analyst Outpatient Coordinator Cardiopulmonary Rehab [facility] 07-31-2023 Note Hospital Medicine Daily Progress Note - 07/31/2023 10:40 AM; Room: [address] [place] [address] Admission: 07/28/2023 4:37 PM; Length of stay: 3 days THE HOSPITALIST TEAM PREFERS TO USE EPIC CHAT FOR COMMUNICATION 7AM-7PM. IF I DO NOT RESPOND WITHIN 15 MINUTES, PLEASE PAGE ME/CALL THROUGH THE REAL ESTATE RECRUITER. FROM 7PM-7AM, PLEASE PAGE [phone](COVR) Code Status: Full Code Barriers to Discharge: [...] systolic CHF (congestive heart failure) ([facility]) Active Problems: Benign essential hypertension CKD (chronic kidney disease) stage 3, GFR 30-59 ml/min ([facility]) Coronary arteriosclerosis Gastroesophageal reflux disease Hypothyroidism Pulmonary hypertension ([facility]) Seizure disorder ([facility]) History of CVA in adulthood Hyperkalemia Hypomagnesemia Metabolic acidosis RENETTA (acute kidney injury) ([facility]) Cardiorenal disease Assessment and Plan [...] INR -- -- 1.15* Chemistry: Results from [facility] (more content not included)... [facility] 07-30-2023 Note ---- Attestation signed by Rinku [...] from tid. No urgent need for [employer]OR [employer], will continue to follow along. ---- [...] gastric bypass surgery who initially presented to [facility] with concerns for worsening lower extremity edema, after gaining 50 pounds within past week. Patient was evaluated by PCP who increased Bumex dose from 1 mg TID to 3 mg TID but patient had no improvement in symptoms. On presentation to [place], patient's creatinine was 4.55 (baseline 1.8-2), phosphorus 11.2, potassium 5.7, magnesium 1.8, hemoglobin 9.2 and BUN 122. Patient was initiated on Bumex drip but developed hypotension and was changed to IV pushes. Patient was subsequently transferred to [facility] Upon assessment at [facility], patient has downtrend in Cr to 3.64, [...] lock IV AND* (more content not included)... [facility] 07-30-2023 Note Subjective Reason for Consult: Bilaterally worsening lower extremity edema with orthopnea, concerning for heart failure exacerbation. HPI: Mabel Moser is a 63 y.o. female with PMH of alpha-1 antitrypsin carrier, HFpEF, CKD 3A, HTN, GERD, hypothyroidism, CVA, seizures, DVT (on Eliquis at home), morbid obesity s/p gastric bypass surgery who initially presented to [facility] with concerns for bilateral worsening lower extremity [...] duplex ultrasound. She was then transferred to [facility]. At [facility], her creatinine did improved slightly to 3.64, hemoglobin 8.5, troponin 0.01, BNP 265. She was initiated on IV Lasix 80 mg 3 times daily. Patient tells me that she did have a TTE performed at [facility] 2 months back but there [...] in the past she was admitted to [facility] in 2019 with fluid overload and responded [...] is cooperative. Thought (more content not included)... [facility] 07-30-2023 Note Hospital Medicine Daily Progress Note - 07/30/2023 8:15 AM; Room: [address] [place] [address] Admission: 07/28/2023 4:37 PM; Length of stay: 2 days THE HOSPITALIST TEAM PREFERS TO USE EPIC CHAT FOR COMMUNICATION 7AM-7PM. IF I DO NOT RESPOND WITHIN 15 MINUTES, PLEASE PAGE ME/CALL THROUGH THE REAL ESTATE RECRUITER. FROM 7PM-7AM, PLEASE PAGE [phone](COVR) Code Status: Full Code Barriers to Discharge: [...] systolic CHF (congestive heart failure) ([facility]) Active Problems: Benign essential hypertension CKD (chronic kidney disease) stage 3, GFR 30-59 ml/min ([facility]) Coronary arteriosclerosis Gastroesophageal reflux disease Hypothyroidism Pulmonary hypertension ([facility]) Seizure disorder ([facility] History of CVA in adulthood Hyperkalemia Hypomagnesemia Metabolic acidosis RENETTA (acute kidney injury) ([facility]) Assessment and Plan Acute decompensated [...] meals Pertinent Invest (more content not included)... [facility] 07-29-2023 Note Hospital Medicine Daily Progress Note - 07/29/2023 4:06 PM; Room: 5183/5183-01 Admission: 07/28/2023 4:37 PM; Length of stay: 1 days THE HOSPITALIST TEAM PREFERS TO USE [employer] CHAT FOR COMMUNICATION 7AM-7PM. IF I DO NOT RESPOND WITHIN 15 MINUTES, PLEASE PAGE ME/CALL THROUGH THE REAL ESTATE RECRUITER. FROM 7PM-7AM, PLEASE PAGE [phone](COVR) Code Status: Full Code Barriers to Discharge: [...] systolic CHF (congestive heart failure) ([facility]) Active Problems: Benign essential hypertension CKD (chronic kidney disease) stage 3, GFR 30-59 ml/min ([facility]) Coronary arteriosclerosis Gastroesophageal reflux disease Hypothyroidism Pulmonary hypertension ([facility]) Seizure disorder ([facility]) History of CVA in adulthood [...] 1.15* -- -- (more content not included)... [facility] 07-28-2023 Note Hospital Medicine History and Physical 07/28/2023 6:16 PM THE HOSPITALIST TEAM PREFERS TO USE [employer] CHAT FOR COMMUNICATION 7AM-7PM. IF I DO NOT RESPOND WITHIN 15 MINUTES, PLEASE PAGE ME/CALL THROUGH THE REAL ESTATE RECRUITER. FROM 7PM-7AM, PLEASE PAGE [phone](COVR) Chief Complaint Direct admission with fluid overload History of Present Illness Mabel Moser is an 63 y.o. female who came from home with Past medical history of CHF, CKD 3, CAD, hypertension, GERD, hypothyroidism, CVA, seizure disorder, pulmonary hypertension, hx of DVT on eliquis presents to [facility] as a direct admission from [facility] with fluid overload. Patient reports worsening bilateral lower extremity edema over the last week. Reports a 50 pound weight gain within that same time period. States that she saw her PCP as well as her eligibility counselor this past week who increased her Bumex to 3 mg 3 times daily without relief. Patient saw her PCP yesterday who sent her directly to [place] for IV diuresis. Upon arrival there, patient [...] her normal limit, patient was transferred to [facility] for higher level of care. Upon arrival to [facility] repeat labs are completed showing pH 7.28, hemoglobin 8.5, magnesium 1.6, BUN 109, creatinine 3.64, BNP 265. Spoke with inside wirer on the phone as patient with persistent [...] systolic CHF (congestive heart failure) ([facility]) 07/28/2023 Polyneuropathy associated with critical illness ([facility]) 11/27/2022 Polyneuropathy 11/27/2022 Osteoarthritis of spine with radiculopathy, lumbar region 11/27/2022 Obesity (BMI 30-39.9) 11/27/2022 Lumbar paraspinal muscle spasm 11/27/2022 Lateral femoral cutaneous neuropathy, left 11/27/2022 Internal derangement of right shoulder 11/27/2022 History of total right knee replacement 11/27/2022 Hemiparesis, left ([facility]) 11/27/2022 Hemiparesis due to old stroke ([facility]) 11/27/2022 Dif (more content not included)... [facility] 07-13-2023 Note [place] [facility] - [facility] Subjective Mabel Moser is a 63 y.o. year old female patient being seen for 6 mo follow up chronic diastolic heart failure, CKD, and CAD. Says she saw Dr. Santana yesterday and he raised her spironolactone to 100mg, which she takes PRN. She was seen in [facility] ED 2 weeks ago for LE edema [...] In the past she was admitted to [facility] in 2019 with fluid overload and responded [...] reviewed and a (more content not included)... [facility] 07-03-2023 Progress note Note Date/Time July 03, 2023 12:18pm [facility] [address] [place] [address] Nephrology Progress Note Signed Patient: Mabel Moser MR#: [id number] : 1960 Acct:[id number] Age/Sex: 63 / F Adm Date: 4 Loc: 3T Room: [address] [place] [address] Type: ADM IN Attending Dr: Jim Randhawa [...] 100 Mcg/Hour Patch.Td72) 100 mcg TRANSDERML Q72H [facility]; Protocol Last Admin: 07/03/23 08:12 Dose: 100 mcg Ferrous Sulfate (Ferrous Sulfate 324 Mg Tablet.Dr) 324 mg PO DAILY [facility] Stop: 06/29/24 08:59 Last Admin: 07/03/23 08:13 Dose: 324 mg Gabapentin (Gabapentin 100 Mg Capsule) 100 mg PO TID [facility] Stop: 06/29/24 08:59 Last Admin: 07/03/23 08:13 Dose: 100 mg Guaifenesin/Dextromethorphan (Guaif/Dextromethorphan Syrup 10 Ml Udc) 10 ml PO Q8H PRN PRN Reason: Cough Stop: 06/28/24 21:34 Heparin Sodium (Porcine) (Heparin 5,000 Unit/Ml Vial) 5,000 unit SUBCUT Q12HR [facility] Stop: 06/29/24 08:59 Last Admin: 07/03/23 08:14 Dose: 5,000 unit Levothyroxine Sodium (Levothyroxine 100 Mcg Tablet) 100 mcg PO DAILY@0630 [facility] Stop: 06/29/24 06:29 Last Admin: 07/03/23 06:23 Dose: 100 mcg Linaclotide (Linaclotide 290 Mcg Capsule) 290 mcg PO Q48HR [facility] Stop: 06/29/24 08:59 Last Admin: 07/02/23 08:59 Dose: 290 mcg Liothyronine Sodium (Liothyronine 25 Mcg Tablet) 25 mcg PO DAILY@0630 [facility] Stop: 06/29/24 10:59 Last Admin: 07/03/23 06:23 Dose: 25 mcg Loratadine (Loratadine 10 Mg Tablet) 10 mg PO DAILY PRN PRN Reason: Allergy Symptoms Stop: 06/29/24 06:54 Melatonin (Melatonin 5 Mg Tablet) 5 mg PO QHS PRN PRN Reason: Insomnia Stop: 06/28/24 21:34 Metoprolol Tartrate (Metoprolol Tartrate 25 Mg Tablet) 25 mg PO BID [facility] Stop: 06/29/24 20:59 Last Admin: 07/03/23 08:14 [...] signed by Raeann Kirkpatrick MD> 07/03/23 1218 [facility] Work Phone: 1(119) 422-292001-07-2024 Progress note Author Jim Randhawa [facility] July 02, 2023 11:26am Note Date/Time July 02, 2023 11 :26am [facility] [address] [place] [address] Hospitalist Progress Note Signed Patient: Mabel Moser MR#: [id number] : 1960 Acct:[id number] Age/Sex: 63 / F Adm Date: 4 Loc: 3T Room: [address] [place] [address] Type: ADM IN Attending Dr: Jim Randhawa [...] signed by Jim Randhawa DO> 07/02/23 1126 [facility] Work Phone: 1(632) 969-461301-07-2024 Progress note Author Los Grissom [facility] July 02, 2023 10:42am Note Date/Time July 02, 2023 10 :42am [facility] [address] [place] [address] Nephrology Progress Note Signed Patient: Mabel Moser MR#: [id number] : 1960 Acct:[id number] Age/Sex: 63 / F Adm Date: 4 Loc: Room: [address] [place] [address] Type: ADM IN Attending Dr: Jim Randhawa [...] Mg/4 Ml Vial) 1 mg IV-PUSH BID@0800,1600 [facility] Stop: 06/29/24 07:59 Last Admin: 07/02/23 08:55 Dose: 1 mg Calcium Acetate (Calcium Acetate 667 Mg Capsule) 667 mg PO BID.WITH.MEALS [facility] Stop: 06/29/24 07:59 Last Admin: 07/02/23 08:55 Dose: 667 mg Duloxetine HCl (Duloxetine 60 Mg Capsule.) 120 mg PO DAILY [facility] Stop: 06/29/24 08:59 Last Admin: 07/02/23 08:59 Dose: 120 mg Fentanyl (Fentanyl Patch 100 Mcg/Hour Patch.Td72) 100 mcg TRANSDERML Q72H [facility]; Protocol Last Admin: 06/30/23 09:31 Dose: 100 mcg Ferrous Sulfate (Ferrous Sulfate 324 Mg Tablet.) 324 mg PO DAILY [facility] Stop: 06/29/24 08:59 Last Admin: 07/02/23 08:55 Dose: 324 mg Gabapentin (Gabapentin 100 Mg Capsule) 100 mg PO TID [facility] Stop: 06/29/24 08:59 Last Admin: 07/02/23 08:55 Dose: 100 mg Guaifenesin/Dextromethorphan (Guaif/Dextromethorphan Syrup 10 Ml Udc) 10 ml PO Q8H PRN PRN Reason: Cough Stop: 06/28/24 21:34 Heparin Sodium (Porcine) (Heparin 5,000 Unit/Ml Vial) 5,000 unit SUBCUT Q12HR [facility] Stop: 06/29/24 08:59 Last Admin: 07/02/23 08:55 Dose: 5,000 unit Levothyroxine Sodium (Levothyroxine 100 Mcg Tablet) 100 mcg PO DAILY@0630 [facility] Stop: 06/29/24 06:29 Last Admin: 07/02/23 05:48 Dose: 100 mcg Linaclotide (Linaclotide 290 Mcg Capsule) 290 mcg PO Q48HR [facility] Stop: 06/29/24 08:59 Last Admin: 07/02/23 08:59 Dose: 290 mcg Liothyronine Sodium (Liothyronine 25 Mcg Tablet) 25 mcg PO DAILY@0630 [facility] Stop: 06/29/24 10:59 Last Admin: 07/02/23 05:48 Dose: 25 mcg Loratadine (Loratadine 10 Mg Tablet) 10 mg PO DAILY PRN PRN Reason: Allergy Symptoms Stop: 06/29/24 06:54 Melatonin (Melatonin 5 Mg Tablet) 5 mg PO QHS PRN PRN Reason: Insomnia Stop: 06/28/24 21:34 Metoprolol Tartrate (Metoprolol Tartrate 25 Mg Tablet) 25 mg PO BID [facility] Stop: 06/29/24 20:59 Last Admin: 07/02/23 08:55 Dose: 25 mg Ondansetron HCl (Ondansetron 4 Mg/2 Ml Vial) 4 mg IV-PUSH Q8H PRN PRN Reason: Nausea And Vomiting Stop: 06/28/24 21:34 Oxycodone/Acetaminophen (Oxycodone/Acetaminophen 5-325 Mg Tablet) 2 tab PO Q6H PRN PRN Reason: Pain Last Admin: 07/02/23 02:00 Dose: 2 tab Pantoprazole Sodium (Pantoprazole 40 Mg Tablet.Dr) 40 mg PO BID [facility] Stop: 06/29/24 08:59 Last Admin: 07/02/23 08:55 Dose: 40 mg Primidone (Primidone 50 Mg Tablet) 100 mg PO HS [facility] Stop: 06/29/24 21:59 Last Admin: 07/01/23 21:21 Dose: 100 mg Sevelamer Carbonate (Sevelamer Carbonate 800 Mg Tablet) 800 mg PO TID.WITH.MEALS [facility] Stop: 06/29/24 11:59 Last Admin: 07/02/23 08:55 [...] signed by MD Los Grissom> 07/02/23 1042 [facility] Work Phone: 1(645) 912-716401-06-2024 Progress note Author Jim Randhawa [facility] July 01, 2023 1:52pm Note Date/Time July 01, 2023 1: 37pm [facility] [address] [place] [address] Hospitalist Progress Note Signed Patient: Mabel Moser MR#: [id number] : 1960 Acct:[id number] Age/Sex: 63 / F Adm Date: 4 Loc: Room: [address] [place] [address] Type: ADM IN Attending Dr: Jim Randhawa [...] signed by Jim Randhawa DO> 07/01/23 1352 [facility] Work Phone: 1(383) 291-674501-06-2024 Progress note Author Los Grissom [facility] July 01, 2023 10:16am Note Date/Time July 01, 2023 10 :16am [facility] [address] [place] [address] Nephrology Progress Note Signed Patient: Mabel Moser MR#: [id number] : 1960 Acct:[id number] Age/Sex: 63 / F Adm Date: 4 Loc: Room: [address] [place] [address] Type: ADM IN Attending Dr: Jim Randhawa [...] 50 Mg Tablet) 150 mg PO QHS [facility] Stop: 06/29/24 21:59 Last Admin: 06/30/23 21:17 Dose: 150 mg Aripiprazole (Aripiprazole 2 Mg Tablet) 2 mg PO DAILY [facility] Stop: 06/29/24 08:59 Last Admin: 07/01/23 08:21 Dose: 2 mg Bisacodyl (Bisacodyl 5 Mg Tablet.) 10 mg PO DAILY PRN PRN Reason: Constipation Stop: 06/28/24 21:34 Bumetanide (Bumetanide 1 Mg/4 Ml Vial) 1 mg IV-PUSH BID@0800,1600 [facility] Stop: 06/29/24 07:59 Last Admin: 07/01/23 08:21 Dose: 1 mg Calcium Acetate (Calcium Acetate 667 Mg Capsule) 667 mg PO BID.WITH.MEALS [facility] Stop: 06/29/24 07:59 Last Admin: 07/01/23 08:20 Dose: 667 mg Duloxetine HCl (Duloxetine 60 Mg Capsule.Dr) 120 mg PO DAILY [facility] Stop: 06/29/24 08:59 Last Admin: 07/01/23 08:20 Dose: 120 mg Fentanyl (Fentanyl Patch 100 Mcg/Hour Patch.Td72) 100 mcg TRANSDERML Q72H [facility]; Protocol Last Admin: 06/30/23 09:31 Dose: 100 mcg Ferrous Sulfate (Ferrous Sulfate 324 Mg Tablet.Dr) 324 mg PO DAILY [facility] Stop: 06/29/24 08:59 Last Admin: 07/01/23 08:20 Dose: 324 mg Gabapentin (Gabapentin 100 Mg Capsule) 100 mg PO TID [facility] Stop: 06/29/24 08:59 Last Admin: 07/01/23 08:20 Dose: 100 mg Guaifenesin/Dextromethorphan (Guaif/Dextromethorphan Syrup 10 Ml Udc) 10 ml PO Q8H PRN PRN Reason: Cough Stop: 06/28/24 21:34 Heparin Sodium (Porcine) (Heparin 5,000 Unit/Ml Vial) 5,000 unit SUBCUT Q12HR [facility] Stop: 06/29/24 08:59 Last Admin: 07/01/23 08:21 Dose: 5,000 unit Levothyroxine Sodium (Levothyroxine 100 Mcg Tablet) 100 mcg PO DAILY@0630 [facility] Stop: 06/29/24 06:29 Last Admin: 07/01/23 05:46 Dose: 100 mcg Linaclotide (Linaclotide 290 Mcg Capsule) 290 mcg PO Q48HR [facility] Stop: 06/29/24 08:59 Last Admin: 06/30/23 09:33 Dose: 290 mcg Liothyronine Sodium (Liothyronine 25 Mcg Tablet) 25 mcg PO DAILY@0630 [facility] Stop: 06/29/24 10:59 Last Admin: 07/01/23 05:46 Dose: 25 mcg Loratadine (Loratadine 10 Mg Tablet) 10 mg PO DAILY PRN PRN Reason: Allergy Symptoms Stop: 06/29/24 06:54 Melatonin (Melatonin 5 Mg Tablet) 5 mg PO QHS PRN PRN Reason: Insomnia Stop: 06/28/24 21:34 Metoprolol Tartrate (Metoprolol Tartrate 25 Mg Tablet) 25 mg PO BID [facility] Stop: 06/29/24 20:59 Last Admin: 07/01/23 08:20 [...] signed by MD Los Grissom> 07/01/23 1016 [facility] Work Phone: 1(355) 580-375001-05-2024 Progress note Author Jim Randhawa [facility] June 30, 2023 1:13pm Note Date/Time June 30, 2023 1: 13pm [facility] [address] [place] [address] Hospitalist Progress Note Signed Patient: Mabel Moser MR#: [id number] : 1960 Acct:[id number] Age/Sex: 63 / F Adm Date: 4 Loc: Room: [address] [place] [address] Type: ADM IN Attending Dr: Jim Randhawa [...] signed by Jim Randhawa DO> 06/30/23 1313 [facility] Work Phone: 1([phone]) 739-392701-05-2024 Consult note Author Los Grissom [facility] June 30, 2023 10:45am Note Date/Time June 30, 2023 10 :26am [facility] [address] [place] [address] Nephrology Consult Note Signed Patient: Mabel Moser MR#: [id number] : 1960 Acct:[id number] Age/Sex: 63 / F Adm Date: 4 Loc: Room: [address] [place] [address] Type: ADM IN Attending Dr: Jim Randhawa [...] and no additional complaints, except as documented [facility] Medical History CAD (coronary artery disease) Concepcion [...] 50 Mg Tablet) 150 mg PO QHS [facility] Stop: 06/29/24 21:59 Aripiprazole (Aripiprazole 2 Mg Tablet) 2 mg PO DAILY [facility] Stop: 06/29/24 08:59 Last Admin: 06/30/23 09:30 Dose: 2 mg Bisacodyl (Bisacodyl 5 Mg Tablet.) 10 mg PO DAILY PRN PRN Reason: Constipation Stop: 06/28/24 21:34 Bumetanide (Bumetanide 1 Mg/4 Ml Vial) 1 mg IV-PUSH BID@0800,1600 [facility] Stop: 06/29/24 07:59 Last Admin: 06/30/23 09:31 Dose: 1 mg Calcium Acetate (Calcium Acetate 667 Mg Capsule) 667 mg PO BID.WITH.MEALS [facility] Stop: 06/29/24 07:59 Last Admin: 06/30/23 09:30 Dose: 667 mg Duloxetine HCl (Duloxetine 60 Mg Capsule.) 120 mg PO DAILY [facility] Stop: 06/29/24 08:59 Last Admin: 06/30/23 09:30 Dose: 120 mg Escitalopram Oxalate (Escitalopram 20 Mg Tablet) 20 mg PO DAILY [facility] Stop: 06/29/24 08:59 Last Admin: 06/30/23 09:31 Dose: 20 mg Fentanyl (Fentanyl Patch 100 Mcg/Hour Patch.Td72) 100 mcg TRANSDERML Q72H [facility]; Protocol Last Admin: 06/30/23 09:31 Dose: 100 mcg Ferrous Sulfate (Ferrous Sulfate 324 Mg Tablet.) 324 mg PO DAILY [facility] Stop: 06/29/24 08:59 Last Admin: 06/30/23 09:31 Dose: 324 mg Gabapentin (Gabapentin 100 Mg Capsule) 100 mg PO TID [facility] Stop: 06/29/24 08:59 Last Admin: 06/30/23 09:31 Dose: 100 mg Guaifenesin/Dextromethorphan (Guaif/Dextromethorphan Syrup 10 Ml Udc) 10 ml PO Q8H PRN PRN Reason: Cough Stop: 06/28/24 21:34 Heparin Sodium (Porcine) (Heparin 5,000 Unit/Ml Vial) 5,000 unit SUBCUT Q12HR [facility] Stop: 06/29/24 08:59 Last Admin: 06/30/23 09:32 Dose: 5,000 unit Levothyroxine Sodium (Levothyroxine 100 Mcg Tablet) 100 mcg PO DAILY@0630 [facility] Stop: 06/29/24 06:29 Last Admin: 06/30/23 05:55 Dose: 100 mcg Linaclotide (Linaclotide 290 Mcg Capsule) 290 mcg PO Q48HR [facility] Stop: 06/29/24 08:59 Last Admin: 06/30/23 09:33 Dose: 290 mcg Liothyronine Sodium (Liothyronine 25 Mcg Tablet) 25 mcg PO DAILY [facility] Stop: 06/29/24 08:59 Loratadine (Loratadine 10 Mg [...] 50 Mg Tablet) 100 mg PO HS [facility] Stop: 06/29/24 21:59 Sevelamer Carbonate (Sevelamer Carbonate 800 Mg Tablet) 800 mg PO TID [facility] Stop: 06/29/24 08:59 Tizanidine HCl (Tizanidine 4 [...] signed by MD Los Grissom> 06/30/23 1045 [facility] Work Phone: 1([phone] History and physical note Author Beatriz Oh [facility] June 29, 2023 9:51pm Note Date/Time June 29, 2023 9: 47pm [facility] [address] [place] [address] Hospitalist H&P Signed Patient: Mabel Moser MR#: [id number] : 1960 Acct:[id number] Age/Sex: 63 / F Adm Date: 4 Loc: Room: [address] [place] [address] Type: ADM IN Attending Dr: Papito Garces [...] She denies having dysuria, hematuria, or frequency. [facility] Medical History CAD (coronary artery disease) Concepcion [...] mg PO BID 08/31/18 [History Confirmed 10/28/22] rcvblkns-chtoucp-beek-iron fum 18 mg-folic 600 mcg-vit K 80 [...] TID PRN Edema 10/28/22 [History Confirmed 10/28/22] hnglxwnfme-oodcoyrdljksu-wwtpefia 50 mg-325 mg-40 mg capsule 1 cap [...] signed by Beatriz Oh MD> 06/29/23 215 [facility] Work Phone: 1(641) 463-911010-10-2023 Evaluation note* Encounter Date Diagnosis Assessment Notes [...] G43.519) Advised the patient to follow with [facility] neurology clinic [place], Chronic kidney disea [...] (ICD-10 - E83.39) Continue Phos[employer] with meals [employer] Other [id number] NoteRemains stable without worsening symptomsUnWVUMedicine [facility]08-30-2023 NoteCoronary artery disease is stable Continue GDMT continue risk factor modifications- heart healthy diet, regular exercise as tolerated and continue all medications.[facility] 02-22-2023 NoteNYHC II Continue GDMT- entresto- metoprolol and aldactone have been dc's r/t hypotension. Diuretic therapy- bumex 2 mg bid- Monitor daily weights, I&O, fluid restriction 1.5-2L/day, renal function and electrolytes- please maintain K+>4 and Mg > 2UnWVUMedicine [facility] 02-22-2023 NoteRCRI- 0???points Class I Risk 3.9???% 30-day risk of , [place], or cardiac arrest From a cardiology perspective pt may proceed with Total knee arthroplasty with Dr Dennis, she is a low to moderate risk for a low to mod risk orthopedic surgery. She does not take any Aspirin, or anticoagulation. Please monitor hemodynamics carefully and prevent any major fluid shifts.[facility]08-30-2023 NotePatient here for 2 mo follow up pulmonary hypertension and hypertension. She was admitted to [facility] twice this past month. She needs cleared for knee replacement surgery with Dr. Dennis. Denies chest pain, lightheadedness, and palpitations. Says SOB is improving. Review of Systems Constitutional: Positive for malaise/fatigue. Cardiovascular: Positive for dyspnea on exertion (improving). Musculoskeletal: Positive for arthritis, back pain and joint pain. All other systems reviewed and are negative.[facility] 02-22-2023 NoteUTP CARDIOLOGY PROGRESS NOTE HPI: Mabel Moser is a 62 y.o. female here for pre surgery risk stratification Patient here for 2 mo follow up pulmonary hypertension and hypertension. She was admitted to [facility] twice this past month. She needs cleared [...] is alert and or (more content not included)...[facility]08-24-2023 NoteSubjective: Patient ID: Mabel Moser is a [...] Date CHF (congestive heart failure) ([facility]) Coronary artery disease Heart [...] intact to light touch distally Imaging: Where: [place] Date: 01/13/2023 x-ray left knee(s) : Images [...] to proceed with surgery. Oneal Downey, M3 [facility] 02/16/23 As the teaching physician, I have personally performed or re-performed the history of present illness, physical exam and medical decision-making activities of the encounter and verified the medical student's documentation. I made pertinent changes as necessary to ensure accurate documentation. Additional Comments: [facility]04-04-2023 Evaluation note* Encounter Date Diagnosis Assessment [...] G43.519) Advised the patient to follow with [facility] neurology clinic [facility] [employer] Other 03-28-2023 [facility]The [id number]* Encounter Date Diagnosis Assessment Notes Treatment Notes Treatment Clinical Notes Jul, Contusion of right wrist, initial encounter (ICD-10 - S60.211A) Patient placed in cock up wrist splint. Activities 2-5 lbs ADLs [employer] Other 12-13-2022 NoteThe [id number] NoteThe [id number] NoteThe [id number] Evaluation note * Encounter Date Diagnosis Assessment [...] pressure. Advised the patient to follow-up with [facility] neurology clinic I will try to reach to Dr. Santana's office about fludrocortisone I would continue same blood pressure medications. Advised the patient to follow a low-salt diet and to monitor her blood pressure at home Mar, Migraine aura, persistent, intractable (ICD-10 - G43.519) Advised the patient to follow with [facility] neurology clinic [employer] Other 08-04-2022 NoteThe [id number] NoteThe [id number] Evaluation note* Encounter Date Diagnosis Assessment Notes [...] off all diuretics metolazone, spironolactone and bumetanide. [employer] Other Discharge summary Author Jim Randhawa [facility] July 03, 2023 3:03pm Note Date/Time July 03, 2023 2: 55pm [facility] [address] [place], [place] [id number] Discharge Summary Signed Patient: Mabel Moser MR#: [id number] : 1960 Acct:[id number] Age/Sex: 63 / F Adm Date: 4 Loc: Room: [address] [place] [address]: Jim Randhawa DO Copies to: [...] needed.) Documented By: Jim Randhawa DO 07/03/23 1458 Signed By: <Electronically signed by Jim Randhawa DO> 07/03/23 3258 [facility] Work Phone: Evaluation noteNo assessment information available [facility] Work Phone: Evaluation noteNo InformationNort [employer] Other Evaluation note* Diagnosis Onset Date Resolution Status Acute heart failure acute RENETTA (acute kidney injury) ac isela Anemia chronic CKD (chronic kidney disease) stage 3, GFR 30-59 ml/min chronic Hypertension chronic [facility] Work Phone: History general Narrative [...] History COVID 05/2020 Hospitalization History COVID 04/2021 [employer] Other history general Narrative - Reported* Type [...] History COVID 05/2020 Hospitalization History COVID 04/2021 [employer] Other history general Narrative - Reported* Type [...] 04/2021 Hospitalization History ELEVATED POTASSIUM LEVEL 09/19/2022 [employer] Other Hospital Discharge instructions Additional Instructions Home health to manage: - PT/OT to eval and treat - Monitor VS routine - Dx. HTN - CHF assessments/education - Urinary assessments - Dx. CKD on RENETTA - Fall [facility] - [facility] Work Phone: Summary Purpose Family History [...] content) DATE CREATED AUTHOR 01/14/2019 Ailyn Zepeda [facility] DATE CREATED AUTHOR AUTHOR'S ORGANIZ ATION 07/24/2021 [facility] DATE CREATED AUTHOR AUTHOR'S ORGANIZ ATION 01/17/2022 [facility] DATE CREATED AUTHOR AUTHOR'S ORGANIZ ATION 12/05/2022 [facility] DATE CREATED AUTHOR AUTHOR'S ORGANIZ ATION 08/04/2023 [facility] DATE CREATED AUTHOR AUTHOR'S ORGANIZ ATION 10/19/2023 [facility] DATE CREATED AUTHOR AUTHOR'S ORGANIZ ATION 01/19/2024 [facility] DATE CREATED AUTHOR AUTHOR'S ORGANIZ ATION 02/12/2024 [facility] DATE CREATED AUTHOR AUTHOR'S ORGANIZ ATION 02/12/2024 [facility] REASON FOR VISIT (unrecogniz ed section [...] BE BASED ON THE PRIMARY CLINICAL RECORDS. [employer] provides no warranty or guarantee of the accuracy or completeness of information in this document.
--- NOTE | 2024-02-28 06:32 | P.HP_ITS ---
HPI H&P: HPI History of Present Illness Chief complaint: PAIN LT LOWER LEG FLUID OVER LOAD CHRONIC ANEMIA Narrative: Patient well-known to me from the office, presented to the emergency room with increasing shortness of breath and pain in left lower extremity. She has a history of acute combined congestive heart failure. Laboratory results in ER confirmed. When I saw patient up on the medical surgical floor, she was resting uncomfortably in bed secondary to pain in left lower extremity and some mild conversational dyspnea. Opioid HPI Opioid Management Most Recent Pain and Opioid Data: Last Pain Scale 8 01/21/24 16:00 Last Pain Assessment 02/28/24 07:48 Last MAR Pain Assessment 02/28/24 07:00 Last ORT Total Score 1 02/28/24 05:18 Last ORT Risk Category Low Risk 02/28/24 05:18 Review of Systems ROS Status of ROS 10 or more systems reviewed and unremark able except as noted in history and below [facility] Medical History (Updated 02/28/24 @ 04:27 by Jenifer Curiel MD) Lymphedema ?I89.0 - Lymphedema, not elsewhere classified (ICD-10) Volume overload ?E87.70 - Fluid overload, unspecified (ICD-10) Chronic kidney disease ?N18.9 - Chronic kidney disease, unspecified (ICD-10) Acute kidney injury ?N17.9 - Acute kidney failure, unspecified (ICD-10) Edema of lower leg due to peripheral venous insufficiency ?I87.2 - Venous insufficiency (chronic) (peripheral) (ICD-10) ?R60.0 - Localized edema (ICD-10) Depression ?F32.A - Depression, unspecified (ICD-10) Gastroenteritis ?K52.9 - Noninfective gastroenteritis and colitis, unspecified (ICD-10) Migraine without aura and without status migrainosus, not intractable ?G43.009 - Migraine without aura, not intractable, without status migrainosus (ICD-10) Chronic heart failure with preserved ejection fraction (HFpEF) ?I50.32 - Chronic diastolic (congestive) heart failure (ICD-10) Chest pain ?R07.9 - Chest pain, unspecified (ICD-10) Dyspnea ?R06.00 - Dyspnea, unspecified (ICD-10) Fluid overload ?E87.70 - Fluid overload, unspecified (ICD-10) Osteoarthritis ?M19.90 - Unspecified osteoarthritis, unspecified site (ICD-10) Anemia ?D64.9 - Anemia, unspecified (ICD-10) Anxiety ?F41.9 - Anxiety disorder, unspecified (ICD-10) Stroke ?I63.9 - Cerebral infarction, unspecified (ICD-10) Acid reflux ?K21.9 - Gastro-esophageal reflux disease without esophagitis (ICD-10) Hypothyroid ?E03.9 - Hypothyroidism, unspecified (ICD-10) Kidney failure ?N19 - Unspecified kidney failure (ICD-10) COPD (chronic obstructive pulmonary disease) ?J44.9 - Chronic obstructive pulmonary disease, unspecified (ICD-10) Asthma ?J45.909 - Unspecified asthma, uncomplicated (ICD-10) CHF (congestive heart failure) ?I50.9 - Heart failure, unspecified (ICD-10) Irregular heart beat ?I49.9 - Cardiac arrhythmia, unspecified (ICD-10) HTN (hypertension) ?I10 - Essential (primary) hypertension (ICD-10) Heart attack ?I21.9 - Acute myocardial infarction, unspecified (ICD-10) Lumbar spondylosis ?M47.816 - Spondylosis without myelopathy or radiculopathy, lumbar region (ICD-10) Surgical History H/O hysterectomy with oophorectomy H/O gastric bypass ?Z98.84 - Bariatric surgery status (ICD-10) History of hernia repair ?Z98.890 - Other specified postprocedural states (ICD-10) ?Z87.19 - Personal history of other diseases of the digestive system (ICD-10) History of rotator cuff surgery ?Z98.890 - Other specified postprocedural states (ICD-10) History of right knee joint replacement ?Z96.651 - Presence of right artificial knee joint (ICD-10) History of appendectomy ?Z90.49 - Acquired absence of other specified parts of digestive tract (ICD- 10) Hx of cholecystectomy ?Z90.49 - Acquired absence of other specified parts of digestive tract (ICD- 10) Family History Father Family history of CHF (congestive heart failure) Family history of diabetes mellitus Family history of hypertension Family history of myocardial infarction Family history of stroke Mother Family history of CHF (congestive heart failure) Family history of COPD (chronic obstructive pulmonary disease) Family history of diabetes mellitus Family history of hypertension Family history of myocardial infarction Family history of stroke Social History Within the past year, how often did you have a drink containing alcohol: never Within the past year, how often did you have six or more drinks on one occasion: never Score interpretation: A score less than 3 is consistent with normal alcohol consumption. 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 Highest level of school completed/degree received: some college, no degree Are you now , , , , never or living with a partner: In a typical week, how many times do you talk on the telephone with family, friends, or neighbors: 3 or more times per week How often do you get together with friends or relatives: twice per week How often do you attend nondenominational or baptism services: 4 or more times per year Do you belong to any clubs or organizations such as nondenominational groups unions, [employer] or athletic groups, or school groups: no Total score: 3 Score interpretation: A score of greater than or equal to 2 indicates the lowest level of social isolation. Little interest or pleasure in doing things: not at all Feeling down, depressed, or hopeless: several days Feel stressed/tense/nervous/anxious/difficulty sleeping: to some extent Life stressors: recent of family or friend Do you think of yourself as: straight/heterosexual Gender Identity: female Meds Home Medications and Allergies Home Medications ?Medication ?Instructions ?Recorded ?Confirmed ?Type alprazolam 0.5 mg tablet 0.5 mg PO BID PRN anxiety 12/08/22 02/28/24 History amitriptyline 150 mg tablet 300 mg PO BEDTIME 12/08/22 02/28/24 History calcium acetate(phosphat bind) 667 667 mg PO BIDWM 12/08/22 02/28/24 History mg capsule levothyroxine 100 mcg tablet 100 mcg PO DAILY 12/08/22 02/28/24 History linaclotide 290 mcg capsule 290 mcg PO DAILY 12/08/22 02/28/24 History (Linzess) oxycodone-acetaminophen 5 mg-325 2 tab PO Q6H PRN pain 12/08/22 02/28/24 History mg tablet primidone 50 mg tablet 150 mg PO BEDTIME 12/08/22 02/28/24 History tizanidine 4 mg tablet (Zanaflex) 4 mg PO Q6H PRN muscle spasticity 12/08/22 02/28/24 History aripiprazole 2 mg tablet (Abilify) 2 mg PO DAILY 01/23/23 02/28/24 History bumetanide 1 mg tablet 6 mg PO DAILY SWELLING 01/23/23 02/28/24 History butorphanol 10 mg/mL nasal spray 1 spray intranasal .QD PRN pain 02/03/23 02/28/24 History azelastine 0.05 % eye drops 1 drp ophthalmic (eye) DAILY 09/29/23 02/28/24 History desvenlafaxine succinate 50 mg 50 mg PO DAILY 09/29/23 02/28/24 History tablet,extended release 24 hr diclofenac sodium 1 % topical gel 2 g topical .QD PRN 09/29/23 02/28/24 History PAIN/INFLAMMATION doxepin 10 mg capsule 10 mg PO BID 09/29/23 02/28/24 History escitalopram oxalate 20 mg tablet 20 mg PO DAILY 09/29/23 02/28/24 History fentanyl 100 mcg/hr transdermal 1 patch transdermal Q72H 10/12/23 02/28/24 History patch pramipexole 1 mg tablet 1 mg PO .qd 10/23/23 02/28/24 History sacubitril 49 mg-valsartan 51 mg 1 tab PO BID 01/04/24 02/28/24 History tablet (Entresto) spironolactone 50 mg tablet 100 mg PO Q12H 01/04/24 02/28/24 History apixaban 5 mg tablet (Eliquis) 5 mg PO Q12H #60 tabs 01/08/24 02/28/24 Rx doxycycline monohydrate 100 mg 100 mg PO BID 10 days #20 caps 01/08/24 02/28/24 Rx capsule Allergies Allergy/AdvReac Type Severity Reaction Status Date / Time povidone-iodine Allergy Intermediate Rash Verified 02/28/24 02:42 [From Betadine] amoxicillin [From Augmentin] Allergy Mild Vomiting Verified 02/28/24 02:42 clavulanic acid Allergy Mild Vomiting Verified 02/28/24 02:42 [From Augmentin] Sulfa (Sulfonamide Allergy Mild Vomiting Verified 02/28/24 02:42 Antibiotics) ciprofloxacin [From Cipro] Allergy Unknown Vomiting Verified 02/28/24 02:42 Exam Constitutional Vital Signs, click to edit/add: Last Vital Signs Temp 97.5 F L 02/28/24 05:18 Pulse 81 02/28/24 05:18 Resp 16 02/28/24 05:18 BP 111/64 02/28/24 05:18 Pulse Ox 93 L 02/28/24 05:18 O2 Del Method Room Air 02/28/24 05:18 Documenting provider has reviewed patient's vital signs: yes Common normals: apparent distress (Moderate painful distress with mild conve rsational dyspnea) Chest Common normals: inspection of chest normal Respiratory Common normals: abnormal respiratory effort (Mild conversational dyspnea) and not clear to ascultation bilaterally Auscultation: rales (Quarter of the way up lung nguyen) Cardio Common normals: regular rate and regular rhythm GI Common normals: negative for Normal to inspection, nondistended, normoactive bowel sounds present (Morbidly obese) Extremity Common normals: abnormal to inspection (3-4+ edema-this is more than twice as bad as her normal 1-2+ lymphedema) Left lower extremity: lower leg (Tenderness in calf and posterior thigh) Results Labs Labs: Short CBC 02/28/24 Range/Units 03:20 WBC 7.0 (4.0-11.0) 10^3/uL Hgb 7.7 L (12.0-16.0) g/dL Hct 25.1 L (36.0-48.0) % Plt Count 232 (150-450) 10^3/uL BMP 02/28/24 03:20 Sodium 134 L Potassium 5.2 H Chloride 103 Carbon Dioxide 24.5 BUN 52.0 H Creatinine 2.10 H Glucose 82 Calcium 8.0 L Liver Function 02/28/24 Range/Units 03:20 Total Bilirubin 0.2 (0.2-1.0) mg/dL AST 22 (15-37) U/L ALT 22 (14-59) U/L Alkaline Phosphatase 240 H (46-116) U/L Albumin 2.9 L (3.4-5.0) g/dL Assessment and Plan Assessment and Plan (1) Chronic kidney insufficiency: (2) Lymphedema: (3) Chronic heart failure with preserved ejection fraction (HFpEF): Plan Admission findings: Uncontrolled hypertension, elevated BNP, acute kidney inj ury, elevated liver function test, pain in left lower extremity, increased edema secondary to acute combined congestive heart failure on top of her chronic diastolic heart failure. Acute combined congestive heart failure-start Bumex drip. This is failed outpatient treatment. She normally takes Aldactone and Bumex at home. We had her essentially triple her dose over the last 4 to 5 days without any improvement. Hold off on echocardiogram currently. High-sensitivity troponin is negative Iron deficiency anemia-this is also likely dilutional with fluid overload, will repeat CBC tomorrow. No need to transfuse at the present time. Hemoglobin is less than 8 though Hyponatremia-this is likely secondary to diuretic use as an outpatient. In the delusional flecked of her acute combined congestive heart failure Hyperkalemia likely secondary to spironolactone, will hold off on spironolactone. Acute kidney injury-her baseline creatinine recently was 1.36, her admission cr eatinine was 2.10 this is 154% above baseline. Bumex drip should improve this without increasing her creatinine. Elevated liver function tests-likely secondary to passive congestion, monitor daily Left lower extremity pain-check ultrasound, history of DVT in that leg, patient currently still anticoagulated with Eliquis Generalized anxiety disorder-continue with home medications Neck pain secondary to C2 fracture-continue with medications Hypothyroidism-recent levels were normal, continue with current dosing Admission findings: Patient with acute combined congestive heart failure with failed outpatient treatment. Her normal dose of Aldactone is 50 mg and her normal dose of Bumex is 1 mg twice a day we increased dose to 100 mg of the Aldactone and 2 mg of Bumex 3 times a day without any improvement over the last 4 days. She will require at least 3 days admission for IV diuretics with Bumex drip. Medically necessary treatment will span 2 midnights. Inpatient status.
[2024-02-28] MEDS: APIXABAN 5 MG TABLET PO ×2 (06:50→16:40)
[2024-02-28] MEDS: FENTANYL 25 MCG/HR PATCH.TD72 TD (07:00)
[2024-02-28 07:16] LABS: Troponin I High Sensitivity 7.4 pg/mL (4.0-51.3)
--- NOTE | 2024-02-28 07:57 | US_ITS ---
The [address] [address] Patient Name: JOSE CLEMENTS MRN: [id number] date: 1960 Sex: F Assigned Patient Location: [place] Current Patient Location: [place] Accession/Order Number: [id number] Exam Date: 02/28/2024 09:32 Report Date: 02/28/2024 10:12 At the request of: ANGLE SANTANA Procedure: US venous doppler LE LT EXAM: US venous doppler LE LT HISTORY: Left lower extremity pain , with hx dvt COMPARISON: None. TECHNIQUE: Doppler color flow as well as spectral analysis were performed of the left lower extremity. FINDINGS: There is adequate flow, compressibility, or augmentation within the visualized deep venous structures of the left lower extremity. No evidence of deep venous thrombus. US/US venous doppler LE LT IMPRESSION: 1. No deep venous thrombus. Electronically authenticated by: HERSON FORRESTER Date: 02/28/2024 10:12
[2024-02-28] MEDS: PRAMIPEXOLE 1 MG TABLET PO (08:05)
[2024-02-28] MEDS: DESVENLAFAXINE SUCCINATE 50 MG TAB.ER.24H PO (08:05)
[2024-02-28] MEDS: ARIPIPRAZOLE 2 MG TABLET PO (08:05)
[2024-02-28] MEDS: ESCITALOPRAM 10 MG TABLET 20 MG PO (08:05)
[2024-02-28] MEDS: CALCIUM ACETATE 667 MG CAPSULE PO ×2 (08:05→16:40)
[2024-02-28] MEDS: DOXEPIN HCL 10 MG CAPSULE PO ×2 (08:05→21:20)
[2024-02-28] MEDS: BUMETANIDE 10 MG in 0.9 % SODIUM CHLORIDE 160 ML 20 MG IV (08:06)
--- NOTE | 2024-02-28 08:09 | CM.NOTE ---
Rounds made with Dr. Godinez. Dr. Godinez to check ultrasound lower extremity. No discharge today.
[2024-02-28] MEDS: OXYCODONE HCL/ACETAMINOPHEN 5MG/325MG 2 TAB PO ×2 (10:02→19:30)
[2024-02-28] MEDS: ALPRAZOLAM 0.5 MG TABLET PO ×2 (10:07→21:27)
[2024-02-28] MEDS: TIZANIDINE HCL 4 MG TABLET PO (10:07)
--- NOTE | 2024-02-28 13:37 | SWNOTE1 ---
SW stopped in to speak with pt, pt was sleeping. Attempted to wake up, but pt fell back asleep. SW to stop back in later today.
--- NOTE | 2024-02-28 15:30 | SWNOTE1 ---
SW met with pt to discuss dc needs. Pt voiced she has been doing well at home, but could not get up because her legs were so swollen so she decided to come to ED. Pt has a rollator at home. She was supposed to go to outpt therapy today, but ended up here. She did get her lymphedema pumps and has been using them at home as well. Pt also let SW know she has been going to counseling. At this time pt has no discharge needs. SW to follow as needed.
--- NOTE | 2024-02-28 15:34 | SWNOTE1 ---
Important Message from [employer] reviewed and discussed with patient. Pt. verbalized understanding and signed the form. Original given to patient and copy placed in patient?s chart.
[2024-02-28] MEDS: FENTANYL 50 MCG/HR PATCH.TD72 100 MCG TD (21:20)
[2024-02-28] MEDS: PRIMIDONE 50 MG TABLET 150 MG PO (21:20)
[2024-02-28] MEDS: AMITRIPTYLINE HCL 50 MG TABLET 300 MG PO (21:20)
[2024-02-29] VITALS (26 sets, daily range): BP systolic 93–135; BP diastolic 50–85; PULSE 65–99; TEMP 36.3–37; O2SAT 87–98
[2024-02-29] MEDS: OXYCODONE HCL/ACETAMINOPHEN 5MG/325MG 2 TAB PO ×3 (01:59→17:15)
[2024-02-29] MEDS: LEVOTHYROXINE SODIUM 100 MCG TABLET PO (05:35)
[2024-02-29] MEDS: APIXABAN 5 MG TABLET PO ×2 (05:36→16:45)
[2024-02-29 05:47] LABS: Basophils Percent Auto 0.5 % (0.2-2.0); Eosinophils Absolute Auto 0.2 10^3/uL (0.0-0.7); Eosinophils Percent Auto 4.2 % (0.9-7.0); Hematocrit 24.5 % (36.0-48.0); Hemoglobin 7.4 g/dL (12.0-16.0); Immature Granulocytes Abs Auto 0.02 10^3/uL (0.00-0.03); Immature Granulocytes Pct Auto 0.4 % (0.0-0.5); Lymphocytes Absolute Auto 1.5 10^3/uL (1.2-3.8); Lymphocytes Percent Auto 25.8 % (20.5-60.0); Mean Corpuscular HGB Conc 30.2 g/dL (29.9-35.2); Mean Corpuscular Hemoglobin 28.5 pg (26.7-34.0); Mean Corpuscular Volume 94.2 fL (81.0-99.0); Mean Platelet Volume 8.9 fL (9.5-13.5); Monocytes Absolute Auto 0.6 10^3/uL (0.3-0.8); Monocytes Percent Auto 10.2 % (1.7-12.0); Neutrophils Absolute Auto 3.4 10^3/uL (1.4-6.5); Neutrophils Percent Auto 58.9 % (43.0-75.0); Platelet Count 240 10^3/uL (150-450); Red Cell Distribution Width 14.6 % (11.0-15.0); White Blood Count 5.7 10^3/uL (4.0-11.0)
[2024-02-29 06:12] LABS: Alanine Aminotransferase 21 U/L (14-59); Albumin Globulin Ratio 0.9; Albumin Level 2.7 g/dL (3.4-5.0); Alkaline Phosphatase 211 U/L (46-116); Anion Gap 12.9; Aspartate Amino Transferase 22 U/L (15-37); BUN Creatinine Ratio 33.3; Bilirubin Total 0.2 mg/dL (0.2-1.0); Calcium 8.3 mg/dL (8.5-10.1); Chloride 100 mmol/L (98-107); Estimated GFR (African America 40 (>=60); Estimated GFR (Non-African Ame 33 (>=60); Glucose 102 mg/dL (74-106); Potassium 4.9 mmol/L (3.5-5.1); Sodium 134 mmol/L (136-145); Total Protein 5.7 g/dL (6.4-8.2)
[2024-02-29] MEDS: BUMETANIDE 10 MG in 0.9 % SODIUM CHLORIDE 160 ML 20 MG IV (06:24)
--- NOTE | 2024-02-29 07:49 | CM.NOTE ---
Rounds made with Dr. Godinez, pt will receive one unit PRBC's today and bumex drip. No discharge.
[2024-02-29] MEDS: CALCIUM ACETATE 667 MG CAPSULE PO ×2 (08:00→16:45)
[2024-02-29] MEDS: PRAMIPEXOLE 1 MG TABLET PO (08:52)
[2024-02-29] MEDS: ESCITALOPRAM 10 MG TABLET 20 MG PO (08:52)
[2024-02-29] MEDS: ARIPIPRAZOLE 2 MG TABLET PO (08:53)
[2024-02-29] MEDS: DOXEPIN HCL 10 MG CAPSULE PO ×2 (08:53→21:08)
[2024-02-29] MEDS: ACETAMINOPHEN 500 MG TABLET 1000 MG PO (08:53)
[2024-02-29] MEDS: DIPHENHYDRAMINE HCL 25 MG CAPSULE PO (08:53)
[2024-02-29] MEDS: DESVENLAFAXINE SUCCINATE 50 MG TAB.ER.24H PO (08:54)
[2024-02-29] MEDS: ONDANSETRON PF 4 MG/2 ML VIAL IV (09:22)
--- NOTE | 2024-02-29 09:45 | P.PN_ITS ---
Progress Note: Subjective Subjective Interval history: Patient does feel better with her legs. Still has significant swelling and pain especially the left leg secondary to the swelling. Breathing also improved Exam Constitutional Vital Signs, click to edit/add: Last Vital Signs Temp 97.4 F L 02/29/24 08:00 Pulse 70 02/29/24 08:00 Resp 12 02/29/24 08:00 BP 130/50 02/29/24 08:00 Pulse Ox 96 02/29/24 08:00 O2 Del Method Room Air 02/29/24 08:00 Documenting provider has reviewed patient's vital signs: yes Common normals: apparent distress (Moderate painful distress with mild conversational dyspnea) Chest Common normals: inspection of chest normal Respiratory Common normals: abnormal respiratory effort (Minimal conversational dyspnea) and not clear to ascultation bilaterally Auscultation: rales (Minimal rales in bases, improved) Cardio Common normals: regular rate and regular rhythm GI Common normals: negative for Normal to inspection, nondistended, normoactive bowel sounds present (Morbidly obese) Extremity Common normals: abnormal to inspection (3+ edema-improved from previous day) Left lower extremity: lower leg (Tenderness in calf and posterior thigh) Progress Note: Objective Labs Labs: Short CBC 02/29/24 Range/Units 05:24 WBC 5.7 (4.0-11.0) 10^3/uL Hgb 7.4 L (12.0-16.0) g/dL Hct 24.5 L (36.0-48.0) % Plt Count 240 (150-450) 10^3/uL BMP 02/29/24 05:24 Sodium 134 L Potassium 4.9 Chloride 100 Carbon Dioxide 26.0 BUN 53.0 H Creatinine 1.59 H Glucose 102 Calcium 8.3 L Liver Function 02/29/24 Range/Units 05:24 Total Bilirubin 0.2 (0.2-1.0) mg/dL AST 22 (15-37) U/L ALT 21 (14-59) U/L Alkaline Phosphatase 211 H (46-116) U/L Albumin 2.7 L (3.4-5.0) g/dL Progress Note: A&P Assessment and Plan (1) Chronic kidney insufficiency: (2) Lymphedema: (3) Chronic heart failure with preserved ejection fraction (HFpEF): Plan Admission findings: Uncontrolled hypertension, elevated BNP, acute kidney injury, elevated liver function test, pain in left lower extremity, increased edema secondary to acute combined congestive heart failure on top of her chronic diastolic heart failure. Acute combined congestive heart failure-BNP is better. Continue with Bumex drip. She had a 6 L output with a net of 5 L. Kidney function is improved Iron deficiency anemia-this is also likely dilutional with fluid overload, will repeat CBC tomorrow. No need to transfuse at the present time. Hemoglobin is less than 8 though Hyponatremia-this is likely secondary to diuretic use as an outpatient. Continue to follow Hyperkalemia-resolved Acute kidney injury-her baseline creatinine recently was 1.36, her admission creatinine was 2.10 this is 154% above baseline. Improved creatinine Elevated liver function tests-likely secondary to passive congestion, improved today Left lower extremity pain-no DVT Generalized anxiety disorder-continue with home medications Neck pain secondary to C2 fracture-continue with medications Hypothyroidism-recent levels were normal, continue with current dosing Asthma-use as needed albuterol treatments Admission findings: Patient with acute combined congestive heart failure with failed outpatient treatment. Her normal dose of Aldactone is 50 mg and her normal dose of Bumex is 1 mg twice a day we increased dose to 100 mg of the Aldactone and 2 mg of Bumex 3 times a day without any improvement over the last 4 days. She will require at least 3 days admission for IV diuretics with Bumex drip. Medically necessary treatment will span 2 midnights. Inpatient status.
--- NOTE | 2024-02-29 10:44 | PT.DAILY ---
Physical Therapy Daily Note PT Daily Note/Assess Start: 02/28/24 17:38 Freq: Status: Active Protocol: Document 02/29/24 10:00 LANI (Rec: 02/29/24 10:43 LANI [id number]) Physical Therapy Daily Note/Assessment Time In/Time Out Time In 10:00 Time Out 10:25 Subjective Subjective Reports feeling better. Leg swelling going down, feeling more mobile. Therapeutic Activity Time Therapeutic Activity Minutes (minutes) 25 Therapeutic Activity Units 2 Therapeutic Activity Treatment Bed Mobility Ability Independent Chair Transfer Ability Independent Therapeutic Activity Comments Gait 250 ft. with 4 WW modified ind. Patient completes challenges in room such as bending to slate picker objects off floor, getting to and from commode, making up bed, and dressing all mod. ind . without issues or cues. Total Physical Therapy Time Total Therapy Minutes 25 Total Physical Therapy Units 2 Summary Daily Note Summary Improved ability with gait distance. Mod ind. with all tasks in room. Complete stair training next visit. Patient was supine in bed with all needs met and call light in reach post RX.
--- NOTE | 2024-02-29 10:46 | PC.NURSE ---
1045 Alert oriented. educated on transfusion of prbc's. Lungs clear posteriorly. Educated on s/s of reaction ie chest pain, shortness of breath, itcing, flank pain etc. notified to notify staff of any of these s/s. Prbc's initiated at 120 ml/hr via rt chest port, (bumex Drip placed on hold)
[2024-02-29] MEDS: PRIMIDONE 50 MG TABLET 150 MG PO (21:08)
[2024-02-29] MEDS: AMITRIPTYLINE HCL 50 MG TABLET 300 MG PO (21:08)
[2024-03-01] VITALS (14 sets, daily range): BP systolic 110–132; BP diastolic 72–83; PULSE 70–96; TEMP 36.4–36.9; O2SAT 94–98
[2024-03-01] MEDS: OXYCODONE HCL/ACETAMINOPHEN 5MG/325MG 2 TAB PO ×2 (03:37→13:25)
[2024-03-01] MEDS: LEVOTHYROXINE SODIUM 100 MCG TABLET PO (05:39)
[2024-03-01] MEDS: APIXABAN 5 MG TABLET PO ×2 (05:39→16:12)
[2024-03-01 05:58] LABS: Basophils Percent Auto 0.3 % (0.2-2.0); Eosinophils Absolute Auto 0.3 10^3/uL (0.0-0.7); Eosinophils Percent Auto 3.9 % (0.9-7.0); Hemoglobin 8.2 g/dL (12.0-16.0); Immature Granulocytes Abs Auto 0.04 10^3/uL (0.00-0.03); Immature Granulocytes Pct Auto 0.6 % (0.0-0.5); Lymphocytes Absolute Auto 1.3 10^3/uL (1.2-3.8); Mean Corpuscular HGB Conc 30.4 g/dL (29.9-35.2); Mean Corpuscular Hemoglobin 28.7 pg (26.7-34.0); Mean Corpuscular Volume 94.4 fL (81.0-99.0); Mean Platelet Volume 8.8 fL (9.5-13.5); Monocytes Absolute Auto 0.7 10^3/uL (0.3-0.8); Neutrophils Absolute Auto 4.3 10^3/uL (1.4-6.5); Neutrophils Percent Auto 65.2 % (43.0-75.0); Platelet Count 254 10^3/uL (150-450); Red Blood Count 2.86 10^6/uL (4.20-5.40); Red Cell Distribution Width 14.6 % (11.0-15.0); White Blood Count 6.6 10^3/uL (4.0-11.0)
[2024-03-01 06:17] LABS: Alanine Aminotransferase 19 U/L (14-59); Albumin Globulin Ratio 0.8; Albumin Level 2.7 g/dL (3.4-5.0); Alkaline Phosphatase 216 U/L (46-116); Anion Gap 10.2; Aspartate Amino Transferase 20 U/L (15-37); BUN Creatinine Ratio 30.2; Bilirubin Total 0.1 mg/dL (0.2-1.0); Carbon Dioxide 27.3 mmol/L (21.0-32.0); Chloride 98 mmol/L (98-107); Estimated GFR (African America 40 (>=60); Estimated GFR (Non-African Ame 33 (>=60); Globulin 3.2 g/dL; Glucose 80 mg/dL (74-106); Potassium 4.5 mmol/L (3.5-5.1); Sodium 131 mmol/L (136-145); Total Protein 5.9 g/dL (6.4-8.2)
--- NOTE | 2024-03-01 08:05 | CM.NOTE ---
Rounds made with Dr. Godinez, pt possible discharge this evening. Pt is scheduled to start outpatient PT.
--- NOTE | 2024-03-01 09:05 | P.DS_ITS ---
DS: Providers Provider Date of admission: 02/28/24 07:57 Primary care physician: Yuri Godinez MD Consults: 02/28/24 06:27 Physical Therapy Eval and Treat Routine Reason for consultation: Eval and Treat Has provider been notified: No DS: Diagnosis Discharge Diagnosis (1) Chronic kidney insufficiency: (2) Lymphedema: (3) Chronic heart failure with preserved ejection fraction (HFpEF): Plan Admission findings: Uncontrolled hypertension, elevated BNP, acute kidney injury, elevated liver function test, pain in left lower extremity, increased edema secondary to acute combined congestive heart failure on top of her chronic diastolic heart failure. Acute combined congestive heart failure-moving at the time of discharge Iron deficiency anemia-improved at the end of this Hyponatremia-deteriorated at the time of discharge Hyperkalemia-resolved Acute kidney injury-improving at the time of discharge Elevated liver function tests-likely secondary to passive congestion-stable at the time of discharge Left lower extremity pain-improved at the time of discharge Generalized anxiety disorder-continue with home medications Neck pain secondary to C2 fracture-continue with medications Hypothyroidism-recent levels were normal, continue with current dosing Asthma-use as needed albuterol treatments Admission findings: Patient with acute combined congestive heart failure with failed outpatient treatment. Her normal dose of Aldactone is 50 mg and her normal dose of Bumex is 1 mg twice a day we increased dose to 100 mg of the Aldactone and 2 mg of Bumex 3 times a day without any improvement over the last 4 days. She will require at least 3 days admission for IV diuretics with Bumex drip. Medically necessary treatment will span 2 midnights. Inpatient status. DS: Summary Hospital Course Hospital Course: Patient was seen and evaluated in the office 1 week prior to coming into the hospital. She had significant fluid overload at that time. At that time we opted to try outpatient treatment by basically tripling her doses of diuretics. This was ineffective as her weight continued to go up and her edema continued to worsen with left leg pain worsening as well. Patient then presented to the emergency room with increasing shortness of breath. Found to have acute combined congestive heart failure with significant peripheral edema and rales on lung exam. She was given Bumex drip on 3 occasions. After the first 2 she diuresed over 6 L. Will give her 1 more 10-hour dose of Bumex today and then discharge to home later today if she remains stable. Medications see list. See me in the office next week. Status at Discharge Overall status at discharge: patient is not back to baseline Time Spent with Patient Time attestation: Total time spent providing and/or coordinating discharge services: Time spent: greater than 30 minutes Exam Constitutional Vital Signs, click to edit/add: Last Vital Signs Temp 98.0 F 03/01/24 07:39 Pulse 80 03/01/24 08:00 Resp 18 03/01/24 07:39 BP 132/81 03/01/24 07:39 Pulse Ox 98 03/01/24 07:39 O2 Del Method Room Air 03/01/24 07:39 Documenting provider has reviewed patient's vital signs: yes Common normals: apparent distress (Moderate painful distress with mild conversational dyspnea) Chest Common normals: inspection of chest normal Respiratory Common normals: abnormal respiratory effort (Minimal conversational dyspnea) and not clear to ascultation bilaterally Auscultation: rales (Minimal rales in bases, improved) Cardio Common normals: regular rate and regular rhythm GI Common normals: negative for Normal to inspection, nondistended, normoactive bowel sounds present (Morbidly obese) Extremity Common normals: abnormal to inspection (2+ edema-improved from previous day) Left lower extremity: lower leg (Tenderness in calf and posterior thigh) DS: Data Data Completed and Pending Labs on day of discharge: Labs from last 24 hours 03/01/24 02/29/24 05:37 06:35 WBC 6.6 RBC 2.86 L Hgb 8.2 L Hct 27.0 L MCV 94.4 MCH 28.7 MCHC 30.4 RDW 14.6 Plt Count 254 MPV 8.8 L Neut % (Auto) 65.2 Lymph % (Auto) 20.0 L [place] % (Auto) 10.0 Eos % (Auto) 3.9 Baso % (Auto) 0.3 Neut # (Auto) 4.3 Lymph # (Auto) 1.3 [place] # (Auto) 0.7 Eos # (Auto) 0.3 Baso # (Auto) 0.0 Abs Immat Gran (auto) 0.04 H Imm/Tot Granulo (auto) 0.6 H Sodium 131 L Potassium 4.5 Chloride 98 Carbon Dioxide 27.3 Anion Gap 10.2 BUN 48.0 H Creatinine 1.59 H Est GFR ( Amer) 40 L Est GFR (Non-Af Amer) 33 L BUN/Creatinine Ratio 30.2 Glucose 80 Calcium 8.0 L Total Bilirubin 0.1 L AST 20 ALT 19 Alkaline Phosphatase 216 H Total Protein 5.9 L Albumin 2.7 L Globulin 3.2 Albumin/Globulin Ratio 0.8 Blood Type A Positive Antibody Screen Negative Crossmatch See Detail Discharge Plan Discharge Disposition: Home, Self-Care Condition: Good Discharge Medications: Continued aripiprazole [Abilify] 2 mg tablet 2 mg PO DAILY bumetanide 1 mg tablet 6 mg PO DAILY Hold Instructions: Resume on 02/16/23. until cleared by PCP butorphanol 10 mg/mL spray,non-aerosol 1 spray INTRANASAL .QD PRN (Reason: pain) desvenlafaxine succinate 50 mg tablet extended release 24 hr 50 mg PO DAILY diclofenac sodium 1 % gel 2 g TOPICAL .QD PRN (Reason: PAIN/INFLAMMATION) doxepin 10 mg capsule 10 mg PO BID escitalopram oxalate 20 mg tablet 20 mg PO DAILY azelastine 0.05 % drops 1 drp OPHTHALMIC (EYE) DAILY fentanyl 100 mcg/hr patch 72 hour 1 patch transdermal Q72H pramipexole 1 mg tablet 1 mg PO .qd alprazolam 0.5 mg tablet 0.5 mg PO BID PRN (Reason: anxiety) amitriptyline 150 mg tablet 300 mg PO BEDTIME calcium acetate(phosphat bind) 667 mg capsule 667 mg PO BIDWM levothyroxine 100 mcg tablet 100 mcg PO DAILY Linzess 290 mcg capsule 290 mcg PO DAILY Hold Instructions: PCP order primidone 50 mg tablet 150 mg PO BEDTIME tizanidine [Zanaflex] 4 mg tablet 4 mg PO Q6H PRN (Reason: muscle spasticity) oxycodone-acetaminophen 5-325 mg tablet 2 tab PO Q6H PRN (Reason: pain) Entresto 49-51 mg tablet 1 tab PO BID spironolactone 50 mg tablet 50 mg PO Q12H Eliquis 5 mg tablet 5 mg PO Q12H Qty: 60 11RF Rx Instructions: 2 po BID for 1 week then 1 po BID for life Print Language: Albanian Forms: Portal Instructions Follow Up Appointments: @ 10:30am with Dr. Godinez [phone]
[2024-03-01] MEDS: BUMETANIDE 10 MG in 0.9 % SODIUM CHLORIDE 160 ML 20 MG IV (09:34)
[2024-03-01] MEDS: ARIPIPRAZOLE 2 MG TABLET PO (09:35)
[2024-03-01] MEDS: DOXEPIN HCL 10 MG CAPSULE PO (09:35)
[2024-03-01] MEDS: CALCIUM ACETATE 667 MG CAPSULE PO ×2 (09:35→16:12)
[2024-03-01] MEDS: PRAMIPEXOLE 1 MG TABLET PO (09:35)
[2024-03-01] MEDS: ESCITALOPRAM 10 MG TABLET 20 MG PO (09:35)
[2024-03-01] MEDS: DESVENLAFAXINE SUCCINATE 50 MG TAB.ER.24H PO (09:35)
--- NOTE | 2024-03-01 10:30 | PT.DAILY ---
Physical Therapy Daily Note PT Daily Note/Assess Start: 02/28/24 17:38 Freq: Status: Active Protocol: Document 03/01/24 10:24 AYALA (Rec: 03/01/24 10:30 AYALA [id number]) Physical Therapy Daily Note/Assessment Time In/Time Out Time In 09:55 Time Out 10:10 Pain In Pain N/A Pain Out Pain N/A Subjective Subjective Pt supine upon arrival. Agrees to PT. Planned dc this afternoon. Therapeutic Activity Time Therapeutic Activity Minutes (minutes) 10 Therapeutic Activity Units 1 Therapeutic Activity Treatment Bed Mobility Ability Independent Chair Transfer Ability Independent Therapeutic Activity Comments Supine>sit IND. Sit>stand IND. Pt amb with rollator 100' SUP with assist for IV pole. Ascends/descends 8 steps with bilat UE support on handrail. Amb another 100' back to room with rollator with SUP and assist with IV pole. Pt returned to supine IND and call light is within reach. Pt is up ad radha in room and with completion of stair training safely planned to dc from PT at this time. Total Physical Therapy Time Total Therapy Minutes 10 Total Physical Therapy Units 1 Summary Daily Note Summary Cont to complete transfers IND . Good tolerance with stair training - safe and confident. Planned dc from PT on this date. Should be DC to home later today.
[2024-03-01 12:03] LABS: Glucometer 71 mg/dL (74-106)
[2024-03-01] MEDS: ALPRAZOLAM 0.5 MG TABLET PO (16:12)
--- NOTE | 2024-03-04 13:36 | CM.DCFOLLOWU ---
Person spoke with: Mabel How are you feeling? Better How is your pain? No pain Did you understand your discharge instructions? Yes Do you have any questions about your discharge instructions? No Were you given any prescriptions at discharge? No Were you able to get your prescriptions filled? N/A Do you understand how to take your medications as ordered? Yes Do you have any questions about your follow up appointment and do you plan to keep your follow up appointment? Rescheduled for Monday 1:00 [place]. Is there anything else that you would like to discuss? No Questions/Comments/Concerns/Other:
== END 2024-03-01 18:20 | disposition home or self-care (01) | DRG 291 ==
LOC: ER 04:33 → MS 05:14
PROVIDERS: Admitting Provider Family Medicine; Emergency Provider Emergency Medicine; PCP Family Medicine; Visit Provider Family Medicine
DX: I13.0 Hypertensive heart and chronic kidney disease with heart failure and stage 1 through stage 4 chronic kidney disease, or unspecified chronic kidney disease (principal); I50.43 Acute on chronic combined systolic (congestive) and diastolic (congestive) heart failure; E87.1 Hypo-osmolality and hyponatremia; N17.9 Acute kidney failure, unspecified; R79.89 Other specified abnormal findings of blood chemistry; D50.9 Iron deficiency anemia, unspecified; E87.5 Hyperkalemia; M79.605 Pain in left leg; F41.1 Generalized anxiety disorder; E03.9 Hypothyroidism, unspecified; I89.0 Lymphedema, not elsewhere classified; Z86.718 Personal history of other venous thrombosis and embolism; Z79.899 Other long term (current) drug therapy; Z79.01 Long term (current) use of anticoagulants; Z98.84 Bariatric surgery status; Z90.710 Acquired absence of both cervix and uterus; Z96.651 Presence of right artificial knee joint; Z90.49 Acquired absence of other specified parts of digestive tract; E66.01 Morbid (severe) obesity due to excess calories; Z86.73 Personal history of transient ischemic attack (TIA), and cerebral infarction without residual deficits; J44.9 Chronic obstructive pulmonary disease, unspecified; K21.9 Gastro-esophageal reflux disease without esophagitis; I25.2 Old myocardial infarction; M54.2 Cervicalgia; S12.100D Unspecified displaced fracture of second cervical vertebra, subsequent encounter for fracture with routine healing; J45.909 Unspecified asthma, uncomplicated; Z68.38 Body mass index [BMI] 38.0-38.9, adult; N18.30 Chronic kidney disease, stage 3 unspecified
CPT/HCPCS: 36415; 36430; 36591; 71045; 80053; 82948; 83880; 84484; 85025; 85378; 85610; 86850; 86900; 86901; 86923; 93005; 93971; 94761; 96365; 96366; 96375; 96376; 97530; 99285; J2405; P9016

== ENCOUNTER 2024-03-08 12:34 | Outpatient (OUT) | payer MEDICARE, MEDICAID, SELFPAY ==
--- NOTE | 2024-03-08 12:40 | XR_ITS ---
The [address] [address] Patient Name: JOSE CLEMENTS MRN: [id number] date: 1960 Sex: F Assigned Patient Location: [facility] Current Patient Location: Accession/Order Number: [id number] Exam Date: 03/08/2024 12:45 Report Date: 03/10/2024 05:33 At the request of: NON-STAFF PHYSICIAN Procedure: XR cervical spine 2-3V EXAMINATION: XR cervical spine 2-3V HISTORY: other closed non displaced fracture of second vertebra COMPARISON: XR cervical spine 01/11/2024, CT cervical spine 01/19/2024 FINDINGS: BONES: Posterior mechanical fusion of C1 and C2 for known dens fracture. No appreciable hardware fracture. Mild grade 1 anterior listhesis of C5 on C6. Multilevel moderate degenerative facet arthropathy. DISC SPACES: Moderate narrowing C6-C7, C7-T1. PARASPINOUS: Negative. No paraspinous abnormality is seen. OTHER: Negative. XR/XR cervical spine 2-3V IMPRESSION: 1. Interval mechanical fusion of C1-C2 for dens fracture. 2. Stable degenerative changes. Electronically authenticated by: BUNNY ZEPEDA Date: 03/10/2024 05:33
== END 2024-03-08 12:35 | disposition home or self-care (01) ==
LOC: RAD 12:34
PROVIDERS: PCP Family Medicine
DX: S12.191D Other nondisplaced fracture of second cervical vertebra, subsequent encounter for fracture with routine healing (principal); Y92.009 Unspecified place in unspecified non-institutional (private) residence as the place of occurrence of the external cause; S12.090D Other displaced fracture of first cervical vertebra, subsequent encounter for fracture with routine healing; Z98.1 Arthrodesis status; M43.22 Fusion of spine, cervical region; W19.XXXD Unspecified fall, subsequent encounter
CPT/HCPCS: 72040

== ENCOUNTER 2024-03-13 11:35 | Outpatient (OUT) | payer MEDICARE, MEDICAID, SELFPAY ==
--- NOTE | 2024-03-13 11:37 | XR_ITS ---
The [address] [address] Patient Name: JOSE CLEMENTS MRN: [id number] date: 1960 Sex: F Assigned Patient Location: [facility] Current Patient Location: [facility] Accession/Order Number: [id number] Exam Date: 03/13/2024 11:45 Report Date: 03/15/2024 07:38 At the request of: ANGLE SANTANA Procedure: XR shoulder LT min 2V PROCEDURE: XR shoulder LT min 2V COMPARISON: None. HISTORY: shoulder pain, left M25.512 FINDINGS: BONES:No acute fracture or dislocation. Mild degenerative changes with joint space narrowing. Moderate degenerative changes of the spine with dextrocurvature. SOFT TISSUES:Negative. No visible soft tissue swelling. EFFUSION:None visible. OTHER: Negative. XR/XR shoulder LT min 2V IMPRESSION: Mild glenohumeral joint osteoarthritis Electronically authenticated by: CARLOS ALCALA Date: 03/15/2024 07:38
== END 2024-03-13 11:36 | disposition home or self-care (01) ==
LOC: RAD 11:35
PROVIDERS: PCP Family Medicine; Visit Provider Family Medicine
DX: M25.512 Pain in left shoulder (principal); M19.012 Primary osteoarthritis, left shoulder
CPT/HCPCS: 73030

== ENCOUNTER 2024-03-19 14:48 | Outpatient (RCR) | payer MEDICARE, MEDICAID, SELFPAY ==
[2024-03-05 14:03] LABS: Basophils Percent Auto 0.4 % (0.2-2.0); Eosinophils Absolute Auto 0.1 10^3/uL (0.0-0.7); Hematocrit 28.3 % (36.0-48.0); Hemoglobin 8.9 g/dL (12.0-16.0); Immature Granulocytes Abs Auto 0.02 10^3/uL (0.00-0.03); Immature Granulocytes Pct Auto 0.3 % (0.0-0.5); Lymphocytes Absolute Auto 1.1 10^3/uL (1.2-3.8); Lymphocytes Percent Auto 14.3 % (20.5-60.0); Mean Corpuscular HGB Conc 31.4 g/dL (29.9-35.2); Mean Corpuscular Volume 92.2 fL (81.0-99.0); Mean Platelet Volume 9.1 fL (9.5-13.5); Monocytes Absolute Auto 0.6 10^3/uL (0.3-0.8); Monocytes Percent Auto 7.6 % (1.7-12.0); Neutrophils Absolute Auto 5.8 10^3/uL (1.4-6.5); Neutrophils Percent Auto 76.4 % (43.0-75.0); Platelet Count 314 10^3/uL (150-450); Red Blood Count 3.07 10^6/uL (4.20-5.40); Red Cell Distribution Width 14.6 % (11.0-15.0); White Blood Count 7.6 10^3/uL (4.0-11.0)
[2024-03-05 14:34] LABS: Alanine Aminotransferase 21 U/L (14-59); Albumin Globulin Ratio 0.9; Albumin Level 3.2 g/dL (3.4-5.0); Alkaline Phosphatase 217 U/L (46-116); Anion Gap 12.5; Aspartate Amino Transferase 23 U/L (15-37); Bilirubin Total 0.4 mg/dL (0.2-1.0); Calcium 8.3 mg/dL (8.5-10.1); Carbon Dioxide 26.5 mmol/L (21.0-32.0); Chloride 98 mmol/L (98-107); Estimated GFR (African America 41 (>=60); Estimated GFR (Non-African Ame 34 (>=60); Globulin 3.4 g/dL; Glucose 106 mg/dL (74-106); Sodium 133 mmol/L (136-145); Total Protein 6.6 g/dL (6.4-8.2)
--- NOTE | 2024-03-05 15:00 | PC.NURSE ---
1330: Pt. to [facility] amb. for port draw. Seated in recliner. Using sterile technique, right ant. chest port accessed without difficulty. Flushes easily and able to aspirate blood easily. Labs obtained. Port flushed with saline and Heparin, port de-accessed. Bandaid applied. Pt. tolerated all without c/o. 1340: Pt. d/c'd amb. to home.
--- NOTE | 2024-03-13 11:54 | PC.NURSE ---
1115: Pt to [facility] amb. for weekly blood draw. Seated in recliner. Using sterile technique, right ant. chest port accessed without difficulty. Flushes easily with good blood return. Blood obtained for ordered labs. Port flushed with saline and Heparin. Port de-accessed. Covered with 2x2 for trace bleeding. 1125: Pt. d/c'd amb to home.
[2024-03-13 11:56] LABS: Basophils Percent Auto 0.4 % (0.2-2.0); Eosinophils Absolute Auto 0.2 10^3/uL (0.0-0.7); Eosinophils Percent Auto 2.8 % (0.9-7.0); Hematocrit 29.2 % (36.0-48.0); Immature Granulocytes Abs Auto 0.02 10^3/uL (0.00-0.03); Immature Granulocytes Pct Auto 0.3 % (0.0-0.5); Lymphocytes Percent Auto 15.2 % (20.5-60.0); Mean Corpuscular HGB Conc 30.8 g/dL (29.9-35.2); Mean Corpuscular Hemoglobin 28.8 pg (26.7-34.0); Mean Corpuscular Volume 93.6 fL (81.0-99.0); Monocytes Absolute Auto 0.7 10^3/uL (0.3-0.8); Monocytes Percent Auto 9.8 % (1.7-12.0); Neutrophils Absolute Auto 4.9 10^3/uL (1.4-6.5); Neutrophils Percent Auto 71.5 % (43.0-75.0); Platelet Count 334 10^3/uL (150-450); Red Blood Count 3.12 10^6/uL (4.20-5.40); Red Cell Distribution Width 14.7 % (11.0-15.0); White Blood Count 6.9 10^3/uL (4.0-11.0)
[2024-03-13 12:39] LABS: Alanine Aminotransferase 23 U/L (14-59); Albumin Level 3.5 g/dL (3.4-5.0); Alkaline Phosphatase 254 U/L (46-116); Anion Gap 13.2; Aspartate Amino Transferase 29 U/L (15-37); BUN Creatinine Ratio 42.4; Bilirubin Total 0.3 mg/dL (0.2-1.0); Calcium 8.2 mg/dL (8.5-10.1); Carbon Dioxide 24.2 mmol/L (21.0-32.0); Chloride 100 mmol/L (98-107); Estimated GFR (African America 42 (>=60); Estimated GFR (Non-African Ame 35 (>=60); Globulin 3.5 g/dL; Glucose 92 mg/dL (74-106); Potassium 4.4 mmol/L (3.5-5.1); Sodium 133 mmol/L (136-145)
[2024-03-19 14:49] LABS: Basophils Percent Auto 0.5 % (0.2-2.0); Eosinophils Absolute Auto 0.2 10^3/uL (0.0-0.7); Eosinophils Percent Auto 2.6 % (0.9-7.0); Hematocrit 28.3 % (36.0-48.0); Hemoglobin 8.8 g/dL (12.0-16.0); Immature Granulocytes Abs Auto 0.02 10^3/uL (0.00-0.03); Immature Granulocytes Pct Auto 0.3 % (0.0-0.5); Lymphocytes Absolute Auto 1.3 10^3/uL (1.2-3.8); Lymphocytes Percent Auto 19.1 % (20.5-60.0); Mean Corpuscular HGB Conc 31.1 g/dL (29.9-35.2); Mean Corpuscular Hemoglobin 29.4 pg (26.7-34.0); Mean Corpuscular Volume 94.6 fL (81.0-99.0); Mean Platelet Volume 8.8 fL (9.5-13.5); Monocytes Absolute Auto 0.7 10^3/uL (0.3-0.8); Neutrophils Absolute Auto 4.5 10^3/uL (1.4-6.5); Neutrophils Percent Auto 67.5 % (43.0-75.0); Platelet Count 268 10^3/uL (150-450); Red Blood Count 2.99 10^6/uL (4.20-5.40); Red Cell Distribution Width 14.9 % (11.0-15.0); White Blood Count 6.6 10^3/uL (4.0-11.0)
--- NOTE | 2024-03-19 14:50 | PC.NURSE ---
1430 Arrival ambulatory with walker to chair 1. alert oriented. rt chest port accessed using sterile technique utilizing #20 ga 3/4 james needle. excellent blood return noted. labs drawn, flushed with ns followed by hep lock flush. deaccessed, cottonball applied, followed by bandaid. released ambulatory
[2024-03-19 15:08] LABS: Alanine Aminotransferase 26 U/L (14-59); Albumin Level 3.3 g/dL (3.4-5.0); Alkaline Phosphatase 270 U/L (46-116); Anion Gap 11.9; Aspartate Amino Transferase 26 U/L (15-37); Bilirubin Total 0.2 mg/dL (0.2-1.0); Calcium 8.3 mg/dL (8.5-10.1); Carbon Dioxide 24.2 mmol/L (21.0-32.0); Chloride 101 mmol/L (98-107); Estimated GFR (African America 40 (>=60); Estimated GFR (Non-African Ame 33 (>=60); Globulin 3.4 g/dL; Glucose 74 mg/dL (74-106); Potassium 4.1 mmol/L (3.5-5.1); Sodium 133 mmol/L (136-145); Total Protein 6.7 g/dL (6.4-8.2)
[2024-03-19 15:13] LABS: BUN Creatinine Ratio 41.3
== END 2024-03-25 23:59 | disposition home or self-care (01) ==
LOC: INF 14:48
PROVIDERS: PCP Family Medicine; Visit Provider Family Medicine
DX: M25.512 Pain in left shoulder (principal); M19.012 Primary osteoarthritis, left shoulder; I10 Essential (primary) hypertension; D64.9 Anemia, unspecified; E87.1 Hypo-osmolality and hyponatremia
CPT/HCPCS: 36591; 73030; 80053; 83930; 85025

== ENCOUNTER 2024-03-27 09:26 | Outpatient (OUT) | payer MEDICARE, MEDICAID, SELFPAY ==
--- NOTE | 2024-03-27 09:59 | PM.CN ---
Consult Note: HPI Data of Consult Patient: known to practice within the last 3 years Requesting Physician: Louann Jackson NP Primary Care Provider: Yuri Godinez MD Consult Narrative Reason for consult: f/u Narrative: Mabel Moser a pleasant 63 year old female presents for evaluation and management of chronic pain. Today pain 10/10 in left knee, hips, groin, buttocks, and low back. Patient reports >80% improvement from recent caudal ROBSON with Dr Suggs. Patient currently dealing with kidney issues and severe bilateral leg edema, following with PCP and nephrology. Patient is being managed with medications for pain by PCP. Patient has been cleared by Dr Vann for cervical fx. Previously was following with orthopedic surgeon for left knee replacement however has not been seen in over a year, pt would like to talk about left knee injection to improve pain and functional ability. cc:: CC: Louann Jackson NP Review of Systems ROS Status of ROS 10 or more systems reviewed and unremarkable except as noted in history and below Musculoskeletal Reports: joint pain PFSH PFSH Medical History (Updated 03/27/24 @ 10:02 by Louann Jackson NP) Pulmonary embolism ?I26.99 - Other pulmonary embolism without acute cor pulmonale (ICD-10) DVT (deep venous thrombosis) ?I82.409 - Acute embolism and thrombosis of unspecified deep veins of unspecified lower extremity (ICD-10) Osteoporosis ?M81.0 - Age-related osteoporosis without current pathological fracture (ICD-10) Seizures ?R56.9 - Unspecified convulsions (ICD-10) IBS (irritable bowel syndrome) ?K58.9 - Irritable bowel syndrome without diarrhea (ICD-10) D-dimer, elevated ?R79.89 - Other specified abnormal findings of blood chemistry (ICD-10) Chronic kidney insufficiency ?N18.9 - Chronic kidney disease, unspecified (ICD-10) Fluid overload ?E87.70 - Fluid overload, unspecified (ICD-10) Lymphedema ?I89.0 - Lymphedema, not elsewhere classified (ICD-10) Volume overload ?E87.70 - Fluid overload, unspecified (ICD-10) Anemia of chronic disease ?D63.8 - Anemia in other chronic diseases classified elsewhere (ICD-10) Chronic kidney disease ?N18.9 - Chronic kidney disease, unspecified (ICD-10) Acute kidney injury ?N17.9 - Acute kidney failure, unspecified (ICD-10) Edema of lower leg due to peripheral venous insufficiency ?I87.2 - Venous insufficiency (chronic) (peripheral) (ICD-10) ?R60.0 - Localized edema (ICD-10) Depression ?F32.A - Depression, unspecified (ICD-10) Gastroenteritis ?K52.9 - Noninfective gastroenteritis and colitis, unspecified (ICD-10) Migraine without aura and without status migrainosus, not intractable ?G43.009 - Migraine without aura, not intractable, without status migrainosus (ICD-10) Chronic heart failure with preserved ejection fraction (HFpEF) ?I50.32 - Chronic diastolic (congestive) heart failure (ICD-10) Chest pain ?R07.9 - Chest pain, unspecified (ICD-10) Dyspnea ?R06.00 - Dyspnea, unspecified (ICD-10) Osteoarthritis ?M19.90 - Unspecified osteoarthritis, unspecified site (ICD-10) Anemia ?D64.9 - Anemia, unspecified (ICD-10) Anxiety ?F41.9 - Anxiety disorder, unspecified (ICD-10) Stroke ?I63.9 - Cerebral infarction, unspecified (ICD-10) Acid reflux ?K21.9 - Gastro-esophageal reflux disease without esophagitis (ICD-10) Hypothyroid ?E03.9 - Hypothyroidism, unspecified (ICD-10) COPD (chronic obstructive pulmonary disease) ?J44.9 - Chronic obstructive pulmonary disease, unspecified (ICD-10) Asthma ?J45.909 - Unspecified asthma, uncomplicated (ICD-10) CHF (congestive heart failure) ?I50.9 - Heart failure, unspecified (ICD-10) Irregular heart beat ?I49.9 - Cardiac arrhythmia, unspecified (ICD-10) HTN (hypertension) ?I10 - Essential (primary) hypertension (ICD-10) Heart attack ?I21.9 - Acute myocardial infarction, unspecified (ICD-10) Lumbar spondylosis ?M47.816 - Spondylosis without myelopathy or radiculopathy, lumbar region (ICD-10) Surgical History H/O cervical spinal arthrodesis ?Z98.1 - Arthrodesis status (ICD-10) Port-A-Cath in place ?Z95.828 - Presence of other vascular implants and grafts (ICD-10) History of lumbar fusion ?Z98.1 - Arthrodesis status (ICD-10) H/O hysterectomy with oophorectomy H/O gastric bypass ?Z98.84 - Bariatric surgery status (ICD-10) History of hernia repair ?Z98.890 - Other specified postprocedural states (ICD-10) ?Z87.19 - Personal history of other diseases of the digestive system (ICD-10) History of rotator cuff surgery ?Z98.890 - Other specified postprocedural states (ICD-10) History of right knee joint replacement ?Z96.651 - Presence of right artificial knee joint (ICD-10) History of appendectomy ?Z90.49 - Acquired absence of other specified parts of digestive tract (ICD-10) Hx of cholecystectomy ?Z90.49 - Acquired absence of other specified parts of digestive tract (ICD-10) Family History Father Family history of CHF (congestive heart failure) Family history of diabetes mellitus Family history of hypertension Family history of myocardial infarction Family history of stroke Mother Family history of CHF (congestive heart failure) Family history of COPD (chronic obstructive pulmonary disease) Family history of diabetes mellitus Family history of hypertension Family history of myocardial infarction Family history of stroke Social History Within the past year, how often did you have a drink containing alcohol: never Within the past year, how often did you have six or more drinks on one occasion: never Score interpretation: A score less than 3 is consistent with normal alcohol consumption. 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 Highest level of school completed/degree received: some college, no degree Are you now , , , , never or living with a partner: In a typical week, how many times do you talk on the telephone with family, friends, or neighbors: 3 or more times per week How often do you get together with friends or relatives: twice per week How often do you attend temple or adventism services: 4 or more times per year Do you belong to any clubs or organizations such as temple groups unions, [employer] or athletic groups, or school groups: no Total score: 3 Score interpretation: A score of greater than or equal to 2 indicates the lowest level of social isolation. Little interest or pleasure in doing things: not at all Feeling down, depressed, or hopeless: several days Feel stressed/tense/nervous/anxious/difficulty sleeping: to some extent Life stressors: recent of family or friend Do you think of yourself as: straight/heterosexual Gender Identity: female Meds Home Medications and Allergies Home Medications ?Medication ?Instructions ?Recorded ?Confirmed ?Type alprazolam 0.5 mg tablet 0.5 mg PO BID PRN anxiety 12/08/22 02/28/24 History amitriptyline 150 mg tablet 300 mg PO BEDTIME 12/08/22 02/28/24 History calcium acetate(phosphat bind) 667 667 mg PO BIDWM 12/08/22 02/28/24 History mg capsule levothyroxine 100 mcg tablet 100 mcg PO DAILY 12/08/22 02/28/24 History linaclotide 290 mcg capsule 290 mcg PO DAILY 12/08/22 02/28/24 History (Linzess) oxycodone-acetaminophen 5 mg-325 2 tab PO Q6H PRN pain 12/08/22 02/28/24 History mg tablet primidone 50 mg tablet 150 mg PO BEDTIME 12/08/22 02/28/24 History tizanidine 4 mg tablet (Zanaflex) 4 mg PO Q6H PRN muscle spasticity 12/08/22 02/28/24 History aripiprazole 2 mg tablet (Abilify) 2 mg PO DAILY 01/23/23 02/28/24 History bumetanide 1 mg tablet 6 mg PO DAILY SWELLING 01/23/23 02/28/24 History butorphanol 10 mg/mL nasal spray 1 spray intranasal .QD PRN pain 02/03/23 02/28/24 History azelastine 0.05 % eye drops 1 drp ophthalmic (eye) DAILY 09/29/23 02/28/24 History desvenlafaxine succinate 50 mg 50 mg PO DAILY 09/29/23 02/28/24 History tablet,extended release 24 hr diclofenac sodium 1 % topical gel 2 g topical .QD PRN 09/29/23 02/28/24 History PAIN/INFLAMMATION doxepin 10 mg capsule 10 mg PO BID 09/29/23 02/28/24 History escitalopram oxalate 20 mg tablet 20 mg PO DAILY 09/29/23 02/28/24 History fentanyl 100 mcg/hr transdermal 1 patch transdermal Q72H 10/12/23 02/28/24 History patch pramipexole 1 mg tablet 1 mg PO .qd 10/23/23 02/28/24 History sacubitril 49 mg-valsartan 51 mg 1 tab PO BID 01/04/24 02/28/24 History tablet (Entresto) spironolactone 50 mg tablet 50 mg PO Q12H 01/04/24 02/28/24 History apixaban 5 mg tablet (Eliquis) 5 mg PO Q12H #60 tabs 01/08/24 02/28/24 Rx Allergies Allergy/AdvReac Type Severity Reaction Status Date / Time povidone-iodine Allergy Intermediate Rash Verified 02/28/24 02:42 [From Betadine] amoxicillin [From Augmentin] Allergy Mild Vomiting Verified 02/28/24 02:42 clavulanic acid Allergy Mild Vomiting Verified 02/28/24 02:42 [From Augmentin] Sulfa (Sulfonamide Allergy Mild Vomiting Verified 02/28/24 02:42 Antibiotics) ciprofloxacin [From Cipro] Allergy Unknown Vomiting Verified 02/28/24 02:42 Exam Constitutional Documenting provider has reviewed patient's vital signs: yes Common normals: no apparent distress, oriented x3, healthy appearing, alert and well nourished General appearance: cooperative [facility] Common normals: normocephalic, hearing grossly normal bilaterally and moist oral mucous membranes Head and scalp: normocephalic Eye Common normals: PERRL Pupil: PERRL Neck & C-Spine Common normals: full ROM General: normal visual inspection Chest Common normals: inspection of chest normal Respiratory Common normals: normal respiratory effort, no retractions and no use of accessory muscles Back & Pelvis Lumbar spine/lower back: pain with ROM and straight leg raise negative bilaterally Extremity General: edema Left lower extremity: knee joint Other: moderate edema, mild crepitus, pain with medial and lateral stress testing, no instability noted Neuro Common normals: oriented x3, CN's II-XII intact bilaterally, moves all extremities, no focal motor deficits, no sensory deficits noted and deep tendon reflexes 2+ bilaterally Sensorium/orientation: alert Motor exam: strength 5/5 throughout and no movement abnormalities noted Psych Common normals: mental status grossly normal, thought process normal, cooperative, affect normal, speech normal and activity/motor behavior normal Speech: normal speech Thought process: normal thought process Results Additional Findings Additional findings: If on a controlled substance or opioids, I have checked an [place] report on this patient and there are no aberrancies noted in the prescribing history.??If on a controlled substance or opioid a drug screen was completed and reviewed within the last year, and if there has not been a drug screen completed we ordered one today to monitor higher risk, state monitored pain medication use. As part of providing excellent, safe, comprehensive care, the following was completed at our patient's visit: 1. A medication reconciliation and review to ensure accurate knowledge of current/active medications, including asking our patients to inform us about any [id number] medications or herbal remedies/nutritional supplements/alternative remedies. 2. A review to specifically ensure our patients have had annual screening for screening for depression, screening for tobacco use, and screening for unhealthy alcohol use. For concerning screenings had a discussion with the patient, provided patient education, and recommended follow-up with primary care provider when appropriate. If patient noted with a risk of falling, they received education on strength, gait, and balance training to prevent future risk of falling. Assessment and Plan Assessment and Plan (1) Osteoarthritis of left knee: (2) Lumbar radiculopathy: (3) Lumbar spondylosis: Plan proceed with left knee injection under fluoroscopy with dr suggs for left knee pain secondary to OA continue f/u with PCP, nephrology, vascular/cardiology continue medications through PCP f/u 2 weeks after injection
== END 2024-03-27 09:27 | disposition home or self-care (01) ==
LOC: PM 09:26
PROVIDERS: PCP Family Medicine; Visit Provider Nurse Practitioner
DX: M17.12 Unilateral primary osteoarthritis, left knee (principal); M47.26 Other spondylosis with radiculopathy, lumbar region
CPT/HCPCS: G0463

== ENCOUNTER 2024-03-29 08:43 | Day surgery (SDC) | payer MEDICARE, MEDICAID, SELFPAY ==
--- NOTE | 2024-03-29 | MR_ITS ---
[address] [address] Patient Name: JOSE CLEMENTS MRN: [id number] date: 1960 Sex: F Assigned Patient Location: MRI Current Patient Location: [facility] Accession/Order Number: [id number] Exam Date: 03/29/2024 10:00 Report Date: 03/29/2024 15:51 At the request of: ANGLE SANTANA Procedure: MR shoulder RT w con EXAMINATION: MR shoulder RT w con HISTORY: Left Shoulder Pain COMPARISON: No relevant comparison available. TECHNIQUE: A variety of imaging planes and parameters were utilized for visualization of suspected pathology. Images were performed with intra-articular contrast. FINDINGS: ROTATOR CUFF REGION CUFF TENDONS: Tear or retraction of the supraspinatus tendon. Suspect tear of the subscapularis tendon allowing medial displacement of the biceps tendon. CUFF MUSCLES: No significant atrophy. DELTOID: Normal. No significant atrophy or tear. LONG BICEPS TENDON: Suspect medial displacement and possible marked attrition. LABRUM/BICEPS ANCHOR SUPERIOR: No visible labral tear or biceps anchor pathology. ANTERIOR/INFERIOR: No visible tear or attrition. POSTERIOR: No posterior labrum abnormality. CAPSULE ANTERIOR/INFERIOR: No visible capsular laxity or thickening. Type I origin of the middle glenohumeral ligament. POSTERIOR: No visible capsular laxity or thickening. 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 AC LIGAMENTS: No appreciable disruption. CC LIGAMENTS: No appreciable disruption. ACROMION: Normal horizontal (Type I) configuration. SUBACROMIAL BURSA: Moderate amount of fluid within the bursa. HYALINE CARTILAGE: Thinning. OTHER BONES: No appreciable fracture or marrow edema. OTHER OBSERVATIONS: No other appreciable abnormality. MR/MR shoulder RT w con IMPRESSION: 1. Examination is significantly limited by patient motion and positioning. 2. Tear and retraction supraspinous tendon and suspected tear of the subscapularis tendon allowing medial subluxation of the biceps tendon. There may be marked attrition of the biceps tendon. 3. Marked degenerative changes of acromioclavicular joint. 4. Cartilage thinning throughout. Electronically authenticated by: BUNNY ZEPEDA Date: 03/29/2024 15:51
--- NOTE | 2024-03-29 | MR_ITS ---
[address] [address] Patient Name: JOSE CLEMENTS MRN: [id number] date: 1960 Sex: F Assigned Patient Location: MRI Current Patient Location: MRI Accession/Order Number: [id number] Exam Date: 03/29/2024 10:00 Report Date: 03/29/2024 15:51 At the request of: ANGLE SANTANA Procedure: MR shoulder LT w con EXAMINATION: MR shoulder RT w con HISTORY: Left Shoulder Pain COMPARISON: No relevant comparison available. TECHNIQUE: A variety of imaging planes and parameters were utilized for visualization of suspected pathology. Images were performed with intra-articular contrast. FINDINGS: ROTATOR CUFF REGION CUFF TENDONS: Tear or retraction of the supraspinatus tendon. Suspect tear of the subscapularis tendon allowing medial displacement of the biceps tendon. CUFF MUSCLES: No significant atrophy. DELTOID: Normal. No significant atrophy or tear. LONG BICEPS TENDON: Suspect medial displacement and possible marked attrition. LABRUM/BICEPS ANCHOR SUPERIOR: No visible labral tear or biceps anchor pathology. ANTERIOR/INFERIOR: No visible tear or attrition. POSTERIOR: No posterior labrum abnormality. CAPSULE ANTERIOR/INFERIOR: No visible capsular laxity or thickening. Type I origin of the middle glenohumeral ligament. POSTERIOR: No visible capsular laxity or thickening. 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 AC LIGAMENTS: No appreciable disruption. CC LIGAMENTS: No appreciable disruption. ACROMION: Normal horizontal (Type I) configuration. SUBACROMIAL BURSA: Moderate amount of fluid within the bursa. HYALINE CARTILAGE: Thinning. OTHER BONES: No appreciable fracture or marrow edema. OTHER OBSERVATIONS: No other appreciable abnormality. MR/MR shoulder LT w con IMPRESSION: 1. Examination is significantly limited by patient motion and positioning. 2. Tear and retraction supraspinous tendon and suspected tear of the subscapularis tendon allowing medial subluxation of the biceps tendon. There may be marked attrition of the biceps tendon. 3. Marked degenerative changes of acromioclavicular joint. 4. Cartilage thinning throughout. Electronically authenticated by: BUNNY ZEPEDA Date: 03/29/2024 15:51
--- NOTE | 2024-03-29 08:54 | FL_ITS ---
[address] [address] Patient Name: JOSE CLEMENTS MRN: [id number] date: 1960 Sex: F Assigned Patient Location: MRI Current Patient Location: MRI Accession/Order Number: [id number] Exam Date: 03/29/2024 08:45 Report Date: 03/29/2024 10:18 At the request of: ANGLE SANTANA Procedure: FL guided needle placement EXAMINATION: FL arthrogram shoulder, FL guided needle placement HISTORY: Left Shoulder Pain FLUORO DOSE: 3.85 mGy Reference air kerma (Ka,r) COMPARISON: No relevant comparison available. TECHNIQUE: An arthrogram was performed under fluoroscopic guidance using non-ionic contrast material in the usual sterile manner after obtaining informed consent. Standard level fluoroscopic mode of operation utilized. FINDINGS: JOINT: Left shoulder NEEDLE: 25 gauge, 3.5 spinal needle. MEDICATION: 2 mL buffered 1% lidocaine for subcutaneous anesthesia. Approximately 8 mL injected into joint space consisting of a mixture of 5 mL Omnipaque-240, 5 mL 1% Xylocaine and 0.2 mL Dotarem. TECHNIQUE: Anterior approach under fluoroscopic guidance. CLINICAL: Decreased pain following the injection (7/10 preinjection; 2/10 post injection). COMPLICATIONS: None. OTHER: Negative. FL/FL guided needle placement IMPRESSION: 1. Technically successful arthrogram without complication. 2. Please see separate MRI arthrogram report. Electronically authenticated by: BUNNY ZEPEDA Date: 03/29/2024 10:18
--- NOTE | 2024-03-29 08:54 | FL_ITS ---
[address] [address] Patient Name: JOSE CLEMENTS MRN: [id number] date: 1960 Sex: F Assigned Patient Location: MRI Current Patient Location: MRI Accession/Order Number: [id number] Exam Date: 03/29/2024 08:45 Report Date: 03/29/2024 10:18 At the request of: ANGLE SANTANA Procedure: FL arthrogram shoulder EXAMINATION: FL arthrogram shoulder, FL guided needle placement HISTORY: Left Shoulder Pain FLUORO DOSE: 3.85 mGy Reference air kerma (Ka,r) COMPARISON: No relevant comparison available. TECHNIQUE: An arthrogram was performed under fluoroscopic guidance using non-ionic contrast material in the usual sterile manner after obtaining informed consent. Standard level fluoroscopic mode of operation utilized. FINDINGS: JOINT: Left shoulder NEEDLE: 25 gauge, 3.5 spinal needle. MEDICATION: 2 mL buffered 1% lidocaine for subcutaneous anesthesia. Approximately 8 mL injected into joint space consisting of a mixture of 5 mL Omnipaque-240, 5 mL 1% Xylocaine and 0.2 mL Dotarem. TECHNIQUE: Anterior approach under fluoroscopic guidance. CLINICAL: Decreased pain following the injection (7/10 preinjection; 2/10 post injection). COMPLICATIONS: None. OTHER: Negative. FL/FL arthrogram shoulder IMPRESSION: 1. Technically successful arthrogram without complication. 2. Please see separate MRI arthrogram report. Electronically authenticated by: BUNNY ZEPEDA Date: 03/29/2024 10:18
[2024-03-29] MEDS: LIDOCAINE HCL 15 ML, SODIUM BICARBONATE 2 MEQ INJ (09:30)
--- NOTE | 2024-03-29 10:54 | SUR.PREOP ---
03/18/24 Pt instructed on procedure, date, time, and prep. Pt made aware to hold Eliquis for 2 full days prior to the injection.
== END 2024-03-29 09:55 | disposition home or self-care (01) ==
LOC: MRI 08:43
PROVIDERS: Radiology Diagnostic Radiology; PCP Family Medicine; Visit Provider Family Medicine
DX: M25.512 Pain in left shoulder (principal)
CPT/HCPCS: 23350; 73222; 77002; A9575; Q9966

== ENCOUNTER 2024-03-29 13:38 | Inpatient (IN) | payer MEDICARE, MEDICAID, SELFPAY ==
[2024-03-29] VITALS (21 sets, daily range): BP systolic 107–136; BP diastolic 66–84; PULSE 64–90; TEMP 36.6–36.9; O2SAT 82–100; BMI 41.5; BMI 41.3
--- NOTE | 2024-03-29 13:44 | XR_ITS ---
The [address] [address] Patient Name: JOSE CLEMENTS MRN: [id number] date: 1960 Sex: F Assigned Patient Location: ED.MAIN Current Patient Location: ER Accession/Order Number: [id number] Exam Date: 03/29/2024 14:07 Report Date: 03/29/2024 14:43 At the request of: TERESSA GREGORY Procedure: XR chest 1V EXAMINATION: XR chest 1V HISTORY: Fluid retention, shortness of breath COMPARISON: XR chest 02/28/2024 FINDINGS: LUNGS: Lungs with mild stranding in right lung base and minimal haziness within lateral left lung base. VASCULATURE: No increased pulmonary vasculature. PLEURA: No pneumothorax, effusion, or pleural thickening. CARDIAC: Stable cardiomegaly. MEDIASTINUM: No visible mass or adenopathy. BONES: No fracture or visible bone lesion. OTHER: Right chest wall Port-A-Cath with tip in superior vena cava. XR/XR chest 1V IMPRESSION: 1. Low lung volume examination with trace amount of bibasilar atelectasis versus infiltrates; slightly changed compared to prior study. Electronically authenticated by: BUNNY ZEPEDA Date: 03/29/2024 14:43
--- NOTE | 2024-03-29 13:44 | ECG_ITS ---
The [facility] Test Date: 2024-03-29 Pat Name: JOSE CLEMENTS Department: Room: - Gender: Female Bolt Header: : 1960 Requested By: ANGLE SANTANA Order Number: [id number] Reading MD: ANGLE SANTANA Measurements Intervals [place] Rate: 72 P: 55 WA: 164 QRS: 29 QRSD: 98 T: 33 QT: 374 QTc: 399 Interpretive Statements 1100 Sinus rhythm 9110 normal ECG Compared to ECG 02/28/2024 02:49:37 Left ventricular hypertrophy no longer present T-wave abnormality no longer present Electronically Signed On 03-30-2024 7:45:25 EDT by ANGLE SANTANA
--- NOTE | 2024-03-29 13:50 | ED_ITS ---
HPI HPI - General Adult General Chief complaint: Recheck/Abnormal Lab/Rx Stated complaint: LEG SWELLING/SHORTNESS OF BREATH Time Seen by Provider: 03/29/24 13:44 History of Present Illness HPI narrative: 64-year-old female presents for swelling in her legs, 16 pound weight gain within a week or 2, and some mild shortness of breath. She has a history of fluid retention and lymphedema. She was sent here by her PCP to be worked up and eventually be admitted. She has not had a fever or cough or chest pain. Related Data Home Medications ?Medication ?Instructions ?Recorded ?Confirmed alprazolam 0.5 mg tablet 0.5 mg PO BID PRN anxiety 12/08/22 03/29/24 amitriptyline 150 mg tablet 300 mg PO BEDTIME 12/08/22 03/29/24 calcium acetate(phosphat bind) 667 667 mg PO BIDWM 12/08/22 03/29/24 mg capsule levothyroxine 100 mcg tablet 100 mcg PO DAILY 12/08/22 03/29/24 linaclotide 290 mcg capsule 290 mcg PO DAILY 12/08/22 03/29/24 (Linzess) oxycodone-acetaminophen 5 mg-325 2 tab PO Q6H PRN pain 12/08/22 03/29/24 mg tablet primidone 50 mg tablet 150 mg PO BEDTIME 12/08/22 03/29/24 tizanidine 4 mg tablet (Zanaflex) 4 mg PO Q6H PRN muscle spasticity 12/08/22 03/29/24 aripiprazole 2 mg tablet (Abilify) 2 mg PO DAILY 01/23/23 03/29/24 bumetanide 1 mg tablet 6 mg PO DAILY SWELLING 01/23/23 03/29/24 butorphanol 10 mg/mL nasal spray 1 spray intranasal .QD PRN pain 02/03/23 02/28/24 azelastine 0.05 % eye drops 1 drp ophthalmic (eye) DAILY 09/29/23 03/29/24 desvenlafaxine succinate 50 mg 50 mg PO DAILY 09/29/23 03/29/24 tablet,extended release 24 hr diclofenac sodium 1 % topical gel 2 g topical .QD PRN 09/29/23 03/29/24 PAIN/INFLAMMATION doxepin 10 mg capsule 10 mg PO BID 09/29/23 03/29/24 escitalopram oxalate 20 mg tablet 20 mg PO DAILY 09/29/23 03/29/24 fentanyl 100 mcg/hr transdermal 1 patch transdermal Q72H 10/12/23 03/29/24 patch pramipexole 1 mg tablet 1 mg PO .qd 10/23/23 03/29/24 sacubitril 49 mg-valsartan 51 mg 1 tab PO BID 01/04/24 03/29/24 tablet (Entresto) spironolactone 50 mg tablet 50 mg PO Q12H 01/04/24 03/29/24 apixaban 5 mg tablet (Eliquis) 5 mg PO BID 03/29/24 03/29/24 atorvastatin 40 mg tablet 40 mg PO .HS 03/29/24 03/29/24 mcyoamooqq-folxclbynmfap-olcdiupo cap 03/29/24 50 mg-300 mg-40 mg capsule fluticasone furoate 100 1 inh inhalation Q24H 03/29/24 03/29/24 mcg-vilanterol 25 mcg/dose inhalation powder (Breo Ellipta) sevelamer carbonate 800 mg tablet 800 mg PO TID 03/29/24 03/29/24 Allergies Allergy/AdvReac Type Severity Reaction Status Date / Time povidone-iodine Allergy Intermediate Rash Verified 03/29/24 13:48 [From Betadine] amoxicillin [From Augmentin] Allergy Mild Vomiting Verified 03/29/24 13:48 clavulanic acid Allergy Mild Vomiting Verified 03/29/24 13:48 [From Augmentin] Sulfa (Sulfonamide Allergy Mild Vomiting Verified 03/29/24 13:48 Antibiotics) ciprofloxacin [From Cipro] Allergy Unknown Vomiting Verified 03/29/24 13:48 Opioid HPI Opioid Management Most Recent Opioid Data: Last Pain Scale 2 03/29/24 09:55 Last Pain Assessment 03/29/24 09:55 Last ORT Total Score 1 02/28/24 05:18 Last ORT Risk Category Low Risk 02/28/24 05:18 Review of Systems ROS Narrative A ten point review of systems is negative except as noted above. [facility] Medical History (Updated 03/29/24 @ 15:25 by Chapo Venegas MD) Shoulder pain, left ?M25.512 - Pain in left shoulder (ICD-10) Pulmonary embolism ?I26.99 - Other pulmonary embolism without acute cor pulmonale (ICD-10) DVT (deep venous thrombosis) ?I82.409 - Acute embolism and thrombosis of unspecified deep veins of unspecified lower extremity (ICD-10) Osteoporosis ?M81.0 - Age-related osteoporosis without current pathological fracture (ICD- 10) Seizures ?R56.9 - Unspecified convulsions (ICD-10) IBS (irritable bowel syndrome) ?K58.9 - Irritable bowel syndrome without diarrhea (ICD-10) D-dimer, elevated ?R79.89 - Other specified abnormal findings of blood chemistry (ICD-10) Chronic kidney insufficiency ?N18.9 - Chronic kidney disease, unspecified (ICD-10) Fluid overload ?E87.70 - Fluid overload, unspecified (ICD-10) Lymphedema ?I89.0 - Lymphedema, not elsewhere classified (ICD-10) Volume overload ?E87.70 - Fluid overload, unspecified (ICD-10) Anemia of chronic disease ?D63.8 - Anemia in other chronic diseases classified elsewhere (ICD-10) Chronic kidney disease ?N18.9 - Chronic kidney disease, unspecified (ICD-10) Acute kidney injury ?N17.9 - Acute kidney failure, unspecified (ICD-10) Edema of lower leg due to peripheral venous insufficiency ?I87.2 - Venous insufficiency (chronic) (peripheral) (ICD-10) ?R60.0 - Localized edema (ICD-10) Depression ?F32.A - Depression, unspecified (ICD-10) Gastroenteritis ?K52.9 - Noninfective gastroenteritis and colitis, unspecified (ICD-10) Migraine without aura and without status migrainosus, not intractable ?G43.009 - Migraine without aura, not intractable, without status migrainosus (ICD-10) Chronic heart failure with preserved ejection fraction (HFpEF) ?I50.32 - Chronic diastolic (congestive) heart failure (ICD-10) Chest pain ?R07.9 - Chest pain, unspecified (ICD-10) Dyspnea ?R06.00 - Dyspnea, unspecified (ICD-10) Osteoarthritis ?M19.90 - Unspecified osteoarthritis, unspecified site (ICD-10) Anemia ?D64.9 - Anemia, unspecified (ICD-10) Anxiety ?F41.9 - Anxiety disorder, unspecified (ICD-10) Stroke ?I63.9 - Cerebral infarction, unspecified (ICD-10) Acid reflux ?K21.9 - Gastro-esophageal reflux disease without esophagitis (ICD-10) Hypothyroid ?E03.9 - Hypothyroidism, unspecified (ICD-10) COPD (chronic obstructive pulmonary disease) ?J44.9 - Chronic obstructive pulmonary disease, unspecified (ICD-10) Asthma ?J45.909 - Unspecified asthma, uncomplicated (ICD-10) CHF (congestive heart failure) ?I50.9 - Heart failure, unspecified (ICD-10) Irregular heart beat ?I49.9 - Cardiac arrhythmia, unspecified (ICD-10) HTN (hypertension) ?I10 - Essential (primary) hypertension (ICD-10) Heart attack ?I21.9 - Acute myocardial infarction, unspecified (ICD-10) Lumbar spondylosis ?M47.816 - Spondylosis without myelopathy or radiculopathy, lumbar region (ICD-10) Surgical History H/O cervical spinal arthrodesis ?Z98.1 - Arthrodesis status (ICD-10) Port-A-Cath in place ?Z95.828 - Presence of other vascular implants and grafts (ICD-10) History of lumbar fusion ?Z98.1 - Arthrodesis status (ICD-10) H/O hysterectomy with oophorectomy H/O gastric bypass ?Z98.84 - Bariatric surgery status (ICD-10) History of hernia repair ?Z98.890 - Other specified postprocedural states (ICD-10) ?Z87.19 - Personal history of other diseases of the digestive system (ICD-10) History of rotator cuff surgery ?Z98.890 - Other specified postprocedural states (ICD-10) History of right knee joint replacement ?Z96.651 - Presence of right artificial knee joint (ICD-10) History of appendectomy ?Z90.49 - Acquired absence of other specified parts of digestive tract (ICD- 10) Hx of cholecystectomy ?Z90.49 - Acquired absence of other specified parts of digestive tract (ICD- 10) Family History Father Family history of CHF (congestive heart failure) Family history of diabetes mellitus Family history of hypertension Family history of myocardial infarction Family history of stroke Mother Family history of CHF (congestive heart failure) Family history of COPD (chronic obstructive pulmonary disease) Family history of diabetes mellitus Family history of hypertension Family history of myocardial infarction Family history of stroke Social History Within the past year, how often did you have a drink containing alcohol: never Within the past year, how often did you have six or more drinks on one occasion: never Score interpretation: A score less than 3 is consistent with normal alcohol consumption. 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 Highest level of school completed/degree received: some college, no degree Are you now , , , , never or living with a partner: In a typical week, how many times do you talk on the telephone with family, friends, or neighbors: 3 or more times per week How often do you get together with friends or relatives: twice per week How often do you attend episcopal or spiritism services: 4 or more times per year Do you belong to any clubs or organizations such as episcopal groups unions, [employer] or athletic groups, or school groups: no Total score: 3 Score interpretation: A score of greater than or equal to 2 indicates the [facility] level of social isolation. Little interest or pleasure in doing things: not at all Feeling down, depressed, or hopeless: several days Feel stressed/tense/nervous/anxious/difficulty sleeping: to some extent Life stressors: recent of family or friend Do you think of yourself as: straight/heterosexual Gender Identity: female Exam Narrative Exam Narrative: Nurses note and vital signs reviewed and patient is not hypoxic. General: The patient appears in no apparent distress. Skin: Warm, dry, no pallor noted. There is no rash noted. Head: Normocephalic, atraumatic Eye: Normal conjunctiva, no drainage Ears, Nose, Mouth, and Throat: oral mucosa is moist. Nares patent. Cardiovascular: Regular Rate and Rhythm Respiratory: Patient is in no distress, no accessory muscle use, lungs are clear to auscultation, no wheezing, rales or rhonchi Back: non-tender GI: Soft and nontender Musculoskeletal: Bilateral lymphedema present in her lower extremities. Neurological: A&O, normal speech Psychiatric: Cooperative Constitutional Vital Signs, click to edit/add: Last Vital Signs Temp 98.4 F 03/29/24 13:48 Pulse 78 03/29/24 13:48 Resp 16 03/29/24 13:48 BP 132/71 03/29/24 13:48 Pulse Ox 100 03/29/24 13:48 O2 Del Method Room Air 03/29/24 13:48 Course Vital Signs Vital signs: Vital Signs Temperature 98.4 F 03/29/24 13:48 Pulse Rate 78 03/29/24 13:48 Respiratory Rate 16 03/29/24 13:48 Blood Pressure 132/71 03/29/24 13:48 Pulse Oximetry 100 03/29/24 13:48 Oxygen Delivery Method Room Air 03/29/24 13:48 Temperature 98.4 F 03/29/24 13:48 Pulse Rate 78 03/29/24 13:48 Respiratory Rate 16 03/29/24 13:48 Blood Pressure 132/71 03/29/24 13:48 Pulse Oximetry 100 03/29/24 13:48 Oxygen Delivery Method Room Air 03/29/24 13:48 Medical Decision Making MDM Narrative Medical decision making narrative: Blood work is nonspecific. No evidence of pulmonary edema or heart failure on her x-ray. She is being admitted to her PCP for fluid management. Differential Diagnosis Differential Diagnosis: Pulmonary edema, CHF, fluid overload Lab Data Lab results reviewed: Yes I reviewed the patient's lab results Labs: Lab Results 03/29/24 Range/Units 14:20 WBC 6.9 (4.0-11.0) 10^3/uL RBC 3.00 L (4.20-5.40) 10^6/uL Hgb 8.7 L (12.0-16.0) g/dL Hct 28.3 L (36.0-48.0) % MCV 94.3 (81.0-99.0) fL MCH 29.0 (26.7-34.0) pg MCHC 30.7 (29.9-35.2) g/dL RDW 14.8 (11.0-15.0) % Plt Count 244 (150-450) 10^3/uL MPV 9.3 L (9.5-13.5) fL Neut % (Auto) 72.2 (43.0-75.0) % Lymph % (Auto) 15.3 L (20.5-60.0) % Cataño % (Auto) 9.6 (1.7-12.0) % Eos % (Auto) 2.2 (0.9-7.0) % Baso % (Auto) 0.4 (0.2-2.0) % Neut # (Auto) 5.0 (1.4-6.5) 10^3/uL Lymph # (Auto) 1.1 L (1.2-3.8) 10^3/uL Cataño # (Auto) 0.7 (0.3-0.8) 10^3/uL Eos # (Auto) 0.2 (0.0-0.7) 10^3/uL Baso # (Auto) 0.0 (0.0-0.1) 10^3/uL Abs Immat Gran (auto) 0.02 (0.00-0.03) 10^3/uL Imm/Tot Granulo (auto) 0.3 (0.0-0.5) % Sodium 133 L (136-145) mmol/L Potassium 4.1 (3.5-5.1) mmol/L Chloride 100 (98-107) mmol/L Carbon Dioxide 24.4 (21.0-32.0) mmol/L Anion Gap 12.7 BUN 62.0 H (7.0-18.0) mg/dL Creatinine 1.93 H (0.55-1.02) mg/dL Est GFR ( Amer) 32 L (>=60 mL/min/1.73m^2) Est GFR (Non-Af Amer) 26 L (>=60 mL/min/1.73m^2) BUN/Creatinine Ratio 32.1 Glucose 102 (74-106) mg/dL Calcium 8.5 (8.5-10.1) mg/dL Troponin I High Sens 11.2 (4.0-51.3) pg/mL NT-Pro-B Natriuret Pep 805.0 (<=900.0) pg/mL Imaging Data Chest x-ray: Radiologist's impression: ITS Impressions Chest X-Ray 03/29/24 13:44 IMPRESSION: 1. Low lung volume examination with trace amount of bibasilar atelectasis versus infiltrates; slightly changed compared to prior study. Electronically authenticated by: BUNNY ZEPEDA Date: 03/29/2024 14:43 ECG Data Attestation: I personally reviewed and interpreted this ECG as follows: (EKG on my interpretation shows sinus rhythm with rate of 72 and no acute change) Discharge Plan Discharge Chief Complaint: Recheck/Abnormal Lab/Rx Clinical Impression: Fluid overload Patient Disposition: Admitted As Inpatient Time of Disposition Decision: 15:25 Condition: Fair Prescriptions / Home Meds: No Action aripiprazole [Abilify] 2 mg tablet 2 mg PO DAILY bumetanide 1 mg tablet 6 mg PO DAILY Hold Instructions: Resume on 02/16/23. until cleared by PCP butorphanol 10 mg/mL spray,non-aerosol 1 spray INTRANASAL .QD PRN (Reason: pain) desvenlafaxine succinate 50 mg tablet extended release 24 hr 50 mg PO DAILY diclofenac sodium 1 % gel 2 g TOPICAL .QD PRN (Reason: PAIN/INFLAMMATION) doxepin 10 mg capsule 10 mg PO BID escitalopram oxalate 20 mg tablet 20 mg PO DAILY azelastine 0.05 % drops 1 drp OPHTHALMIC (EYE) DAILY fentanyl 100 mcg/hr patch 72 hour 1 patch transdermal Q72H pramipexole 1 mg tablet 1 mg PO .qd atorvastatin 40 mg tablet 40 mg PO .HS sevelamer carbonate 800 mg tablet 800 mg PO TID fluticasone furoate-vilanterol [Breo Ellipta] 100-25 mcg/dose blister with device 1 inh INHALATION Q24H emtgkcpvgj-tmniuoelnxvxa-upod 50-300-40 mg capsule Eliquis 5 mg tablet 5 mg PO BID Rx Instructions: 2 po BID for 1 week then 1 po BID for life alprazolam 0.5 mg tablet 0.5 mg PO BID PRN (Reason: anxiety) amitriptyline 150 mg tablet 300 mg PO BEDTIME calcium acetate(phosphat bind) 667 mg capsule 667 mg PO BIDWM levothyroxine 100 mcg tablet 100 mcg PO DAILY Linzess 290 mcg capsule 290 mcg PO DAILY Hold Instructions: PCP order primidone 50 mg tablet 150 mg PO BEDTIME tizanidine [Zanaflex] 4 mg tablet 4 mg PO Q6H PRN (Reason: muscle spasticity) oxycodone-acetaminophen 5-325 mg tablet 2 tab PO Q6H PRN (Reason: pain) Entresto 49-51 mg tablet 1 tab PO BID spironolactone 50 mg tablet 50 mg PO Q12H Print Language: Norwegian Referrals: Yuri Godinez MD [Primary Care Provider] - 1 week
[2024-03-29 14:42] LABS: Basophils Percent Auto 0.4 % (0.2-2.0); Eosinophils Absolute Auto 0.2 10^3/uL (0.0-0.7); Eosinophils Percent Auto 2.2 % (0.9-7.0); Hematocrit 28.3 % (36.0-48.0); Hemoglobin 8.7 g/dL (12.0-16.0); Immature Granulocytes Abs Auto 0.02 10^3/uL (0.00-0.03); Immature Granulocytes Pct Auto 0.3 % (0.0-0.5); Lymphocytes Absolute Auto 1.1 10^3/uL (1.2-3.8); Lymphocytes Percent Auto 15.3 % (20.5-60.0); Mean Corpuscular HGB Conc 30.7 g/dL (29.9-35.2); Mean Corpuscular Volume 94.3 fL (81.0-99.0); Mean Platelet Volume 9.3 fL (9.5-13.5); Monocytes Absolute Auto 0.7 10^3/uL (0.3-0.8); Monocytes Percent Auto 9.6 % (1.7-12.0); Neutrophils Percent Auto 72.2 % (43.0-75.0); Platelet Count 244 10^3/uL (150-450); Red Cell Distribution Width 14.8 % (11.0-15.0); White Blood Count 6.9 10^3/uL (4.0-11.0)
[2024-03-29 15:05] LABS: Anion Gap 12.7; BUN Creatinine Ratio 32.1; Calcium 8.5 mg/dL (8.5-10.1); Carbon Dioxide 24.4 mmol/L (21.0-32.0); Chloride 100 mmol/L (98-107); Estimated GFR (African America 32 (>=60 mL/min/1.73m^2); Estimated GFR (Non-African Ame 26 (>=60 mL/min/1.73m^2); Glucose 102 mg/dL (74-106); Potassium 4.1 mmol/L (3.5-5.1); Sodium 133 mmol/L (136-145); Troponin I High Sensitivity 11.2 pg/mL (4.0-51.3)
--- NOTE | 2024-03-29 16:48 | P.HP_ITS ---
HPI H&P: HPI History of Present Illness Chief complaint: LEG SWELLING/SHORTNESS OF BREATH FLUID OVERLOAD Narrative: Patient well-known to me from hospital and long-term care at the office, called the office on Monday increased weight gain of 12 pounds, at her double her dose of her Bumex and Aldactone, since that time she gained 4 more pounds, documented weight change in the office of 16 pound weight gain in the last 2 weeks. No change in diet, no shortness of breath at rest, she does feel short of breath when she is ambulating due to the increased weight especially pressure in her legs. When I saw patient she was resting comfortably in chair, does have some mild conversational dyspnea part of that is her anxiety as well. Opioid HPI Opioid Management Most Recent Pain and Opioid Data: Last Pain Scale 9 03/29/24 16:19 Last Pain Assessment 03/29/24 16:19 Last ORT Total Score 1 03/29/24 16:19 Last ORT Risk Category Low Risk 03/29/24 16:19 Review of Systems ROS Status of ROS 10 or more systems reviewed and unremark able except as noted in history and below [facility] Medical History (Updated 03/29/24 @ 16:59 by Yuri Godinez MD) Shoulder pain, left ?M25.512 - Pain in left shoulder (ICD-10) Pulmonary embolism ?I26.99 - Other pulmonary embolism without acute cor pulmonale (ICD-10) DVT (deep venous thrombosis) ?I82.409 - Acute embolism and thrombosis of unspecified deep veins of unspecified lower extremity (ICD-10) Osteoporosis ?M81.0 - Age-related osteoporosis without current pathological fracture (ICD- 10) Seizures ?R56.9 - Unspecified convulsions (ICD-10) IBS (irritable bowel syndrome) ?K58.9 - Irritable bowel syndrome without diarrhea (ICD-10) D-dimer, elevated ?R79.89 - Other specified abnormal findings of blood chemistry (ICD-10) Chronic kidney insufficiency ?N18.9 - Chronic kidney disease, unspecified (ICD-10) Fluid overload ?E87.70 - Fluid overload, unspecified (ICD-10) Lymphedema ?I89.0 - Lymphedema, not elsewhere classified (ICD-10) Volume overload ?E87.70 - Fluid overload, unspecified (ICD-10) Anemia of chronic disease ?D63.8 - Anemia in other chronic diseases classified elsewhere (ICD-10) Chronic kidney disease ?N18.9 - Chronic kidney disease, unspecified (ICD-10) Acute kidney injury ?N17.9 - Acute kidney failure, unspecified (ICD-10) Edema of lower leg due to peripheral venous insufficiency ?I87.2 - Venous insufficiency (chronic) (peripheral) (ICD-10) ?R60.0 - Localized edema (ICD-10) Depression ?F32.A - Depression, unspecified (ICD-10) Gastroenteritis ?K52.9 - Noninfective gastroenteritis and colitis, unspecified (ICD-10) Migraine without aura and without status migrainosus, not intractable ?G43.009 - Migraine without aura, not intractable, without status migrainosus (ICD-10) Chronic heart failure with preserved ejection fraction (HFpEF) ?I50.32 - Chronic diastolic (congestive) heart failure (ICD-10) Chest pain ?R07.9 - Chest pain, unspecified (ICD-10) Dyspnea ?R06.00 - Dyspnea, unspecified (ICD-10) Osteoarthritis ?M19.90 - Unspecified osteoarthritis, unspecified site (ICD-10) Anemia ?D64.9 - Anemia, unspecified (ICD-10) Anxiety ?F41.9 - Anxiety disorder, unspecified (ICD-10) Stroke ?I63.9 - Cerebral infarction, unspecified (ICD-10) Acid reflux ?K21.9 - Gastro-esophageal reflux disease without esophagitis (ICD-10) Hypothyroid ?E03.9 - Hypothyroidism, unspecified (ICD-10) COPD (chronic obstructive pulmonary disease) ?J44.9 - Chronic obstructive pulmonary disease, unspecified (ICD-10) Asthma ?J45.909 - Unspecified asthma, uncomplicated (ICD-10) CHF (congestive heart failure) ?I50.9 - Heart failure, unspecified (ICD-10) Irregular heart beat ?I49.9 - Cardiac arrhythmia, unspecified (ICD-10) HTN (hypertension) ?I10 - Essential (primary) hypertension (ICD-10) Heart attack ?I21.9 - Acute myocardial infarction, unspecified (ICD-10) Lumbar spondylosis ?M47.816 - Spondylosis without myelopathy or radiculopathy, lumbar region (ICD-10) Surgical History H/O cervical spinal arthrodesis ?Z98.1 - Arthrodesis status (ICD-10) Port-A-Cath in place ?Z95.828 - Presence of other vascular implants and grafts (ICD-10) History of lumbar fusion ?Z98.1 - Arthrodesis status (ICD-10) H/O hysterectomy with oophorectomy H/O gastric bypass ?Z98.84 - Bariatric surgery status (ICD-10) History of hernia repair ?Z98.890 - Other specified postprocedural states (ICD-10) ?Z87.19 - Personal history of other diseases of the digestive system (ICD-10) History of rotator cuff surgery ?Z98.890 - Other specified postprocedural states (ICD-10) History of right knee joint replacement ?Z96.651 - Presence of right artificial knee joint (ICD-10) History of appendectomy ?Z90.49 - Acquired absence of other specified parts of digestive tract (ICD- 10) Hx of cholecystectomy ?Z90.49 - Acquired absence of other specified parts of digestive tract (ICD- 10) Family History Father Family history of CHF (congestive heart failure) Family history of diabetes mellitus Family history of hypertension Family history of myocardial infarction Family history of stroke Mother Family history of CHF (congestive heart failure) Family history of COPD (chronic obstructive pulmonary disease) Family history of diabetes mellitus Family history of hypertension Family history of myocardial infarction Family history of stroke Social History Within the past year, how often did you have a drink containing alcohol: never Within the past year, how often did you have six or more drinks on one occasion: never Score interpretation: A score less than 3 is consistent with normal alcohol consumption. 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 Highest level of school completed/degree received: some college, no degree Are you now , , , , never or living with a partner: In a typical week, how many times do you talk on the telephone with family, friends, or neighbors: 3 or more times per week How often do you get together with friends or relatives: twice per week How often do you attend hoahaoism or anabaptism services: 4 or more times per year Do you belong to any clubs or organizations such as hoahaoism groups unions, fraternal or athletic groups, or school groups: no Total score: 3 Score interpretation: A score of greater than or equal to 2 indicates the lowest level of social isolation. Little interest or pleasure in doing things: not at all Feeling down, depressed, or hopeless: several days Feel stressed/tense/nervous/anxious/difficulty sleeping: to some extent Life stressors: recent of family or friend Do you think of yourself as: straight/heterosexual Gender Identity: female Meds Home Medications and Allergies Home Medications ?Medication ?Instructions ?Recorded ?Confirmed ?Type alprazolam 0.5 mg tablet 0.5 mg PO BID PRN anxiety 12/08/22 03/29/24 History amitriptyline 150 mg tablet 300 mg PO BEDTIME 12/08/22 03/29/24 History calcium acetate(phosphat bind) 667 667 mg PO BIDWM 12/08/22 03/29/24 History mg capsule levothyroxine 100 mcg tablet 100 mcg PO DAILY 12/08/22 03/29/24 History linaclotide 290 mcg capsule 290 mcg PO DAILY 12/08/22 03/29/24 History (Linzess) oxycodone-acetaminophen 5 mg-325 2 tab PO Q6H PRN pain 12/08/22 03/29/24 History mg tablet primidone 50 mg tablet 150 mg PO BEDTIME 12/08/22 03/29/24 History tizanidine 4 mg tablet (Zanaflex) 4 mg PO Q6H PRN muscle spasticity 12/08/22 03/29/24 History aripiprazole 2 mg tablet (Abilify) 2 mg PO DAILY 01/23/23 03/29/24 History bumetanide 1 mg tablet 6 mg PO DAILY SWELLING 01/23/23 03/29/24 History butorphanol 10 mg/mL nasal spray 1 spray intranasal .QD PRN pain 02/03/23 02/28/24 History azelastine 0.05 % eye drops 1 drp ophthalmic (eye) DAILY 09/29/23 03/29/24 History desvenlafaxine succinate 50 mg 50 mg PO DAILY 09/29/23 03/29/24 History tablet,extended release 24 hr diclofenac sodium 1 % topical gel 2 g topical .QD PRN 09/29/23 03/29/24 History PAIN/INFLAMMATION doxepin 10 mg capsule 10 mg PO BID 09/29/23 03/29/24 History escitalopram oxalate 20 mg tablet 20 mg PO DAILY 09/29/23 03/29/24 History fentanyl 100 mcg/hr transdermal 1 patch transdermal Q72H 10/12/23 03/29/24 History patch pramipexole 1 mg tablet 1 mg PO .qd 10/23/23 03/29/24 History sacubitril 49 mg-valsartan 51 mg 1 tab PO BID 01/04/24 03/29/24 History tablet (Entresto) spironolactone 50 mg tablet 50 mg PO Q12H 01/04/24 03/29/24 History apixaban 5 mg tablet (Eliquis) 5 mg PO BID 03/29/24 03/29/24 History atorvastatin 40 mg tablet 40 mg PO .HS 03/29/24 03/29/24 History pmfjlfrgco-qwmepkkmgfltv-xymalnwv cap 03/29/24 History 50 mg-300 mg-40 mg capsule fluticasone furoate 100 1 inh inhalation Q24H 03/29/24 03/29/24 History mcg-vilanterol 25 mcg/dose inhalation powder (Breo Ellipta) sevelamer carbonate 800 mg tablet 800 mg PO TID 03/29/24 03/29/24 History Allergies Allergy/AdvReac Type Severity Reaction Status Date / Time povidone-iodine Allergy Intermediate Rash Verified 03/29/24 13:48 [From Betadine] amoxicillin [From Augmentin] Allergy Mild Vomiting Verified 03/29/24 13:48 clavulanic acid Allergy Mild Vomiting Verified 03/29/24 13:48 [From Augmentin] Sulfa (Sulfonamide Allergy Mild Vomiting Verified 03/29/24 13:48 Antibiotics) ciprofloxacin [From Cipro] Allergy Unknown Vomiting Verified 03/29/24 13:48 Exam Constitutional Vital Signs, click to edit/add: Last Vital Signs Temp 97.8 F 03/29/24 16:19 Pulse 71 03/29/24 16:19 Resp 18 03/29/24 16:19 BP 133/80 03/29/24 16:19 Pulse Ox 97 03/29/24 16:19 O2 Del Method Room Air 03/29/24 16:19 Common normals: apparent distress (Mild conversational dyspnea) Chest Common normals: inspection of chest normal Respiratory Common normals: no retractions, no use of accessory muscles and clear to auscultation bilaterally; abnormal respiratory effort (Mild conversational dyspnea) Cardio Common normals: regular rate (Slightly tacky) and regular rhythm GI Common normals: Normal to inspection, nondistended, normoactive bowel sounds present (Morbidly obese) Extremity Common normals: abnormal to inspection (3-4+ pitting edema bilateral lower extremities plus signs of lymphedema) Results Labs Labs: Short CBC 03/29/24 Range/Units 14:20 WBC 6.9 (4.0-11.0) 10^3/uL Hgb 8.7 L (12.0-16.0) g/dL Hct 28.3 L (36.0-48.0) % Plt Count 244 (150-450) 10^3/uL BMP 03/29/24 14:20 Sodium 133 L Potassium 4.1 Chloride 100 Carbon Dioxide 24.4 BUN 62.0 H Creatinine 1.93 H Glucose 102 Calcium 8.5 Assessment and Plan Assessment and Plan (1) Fluid overload: Assessment and Plan: Patient findings: Patient up 16 pounds from her baseline rate. Secondary to fluid overload with mild conversational dyspnea-she has responded very well in the past to Bumex drip. Usually takes at least 2 rounds, will order to rounds of the Bumex drip, 10 hours each, some time in between each episode. Once patient ambulating with less dyspnea, she can be discharged to home, medically necessary treatment will span at least 2 midnights (2) C2 cervical fracture: Assessment and Plan: Just taken out of her collar, pain fairly well-controlled (3) Shoulder pain, left: Assessment and Plan: Pain fairly well-controlled continue current treatment plan (4) Chronic kidney insufficiency: Assessment and Plan: See below (5) Lymphedema: Assessment and Plan: Encouraged her to use her home lymphedema pumps (6) Anemia of chronic disease: Assessment and Plan: Hemoglobin slightly lower than normal for her, normally she runs around 9, this may be delusional. Will see if improved in a.m., she does have a history of acute upper gastrointestinal blood loss anemia (7) Acute kidney injury: Assessment and Plan: Baseline creatinine of 1.51, admission creatinine 1.93, this is 127.8% above baseline. In the past this is actually improved with her Bumex drip. Will see how this 1 progresses. (8) Depression: Assessment and Plan: Continue with home treatment plan for her depression with insomnia (9) Dyspnea: Assessment and Plan: Conversational dyspnea secondary to fluid overload, BNP and HST are normal (10) Osteoarthritis: Assessment and Plan: Continue with home medications (11) COPD (chronic obstructive pulmonary disease): Assessment and Plan: Stable without acute exacerbation (12) HTN (hypertension): Assessment and Plan: Continue home medicines, typical when she is diuresed, her blood pressure tends to run a little low (13) H/O gastric bypass: Assessment and Plan: Diet management (14) Pulmonary embolism: Assessment and Plan: Maintain anticoagulation (15) DVT (deep venous thrombosis): Assessment and Plan: Maintain anticoagulation (16) CHF (congestive heart failure): Assessment and Plan: Maintain Entresto, considerations for increasing dose (17) Mixed hypercholesterolemia and hypertriglyceridemia: Assessment and Plan: Continue with home medications Plan Admission status: Patient with failed outpatient treatment of fluid overload, we increased her dose of medications 3 days ago and she still had a 4 pound weight gain in the last 3 days. She is up 16 pounds from her baseline. Medically necessary treatment will span 2 midnights. Inpatient status.
[2024-03-29] MEDS: BUMETANIDE 10 MG in 0.9 % SODIUM CHLORIDE 160 ML 20 MG IV (18:30)
[2024-03-29] MEDS: OXYCODONE HCL/ACETAMINOPHEN 5MG/325MG 2 TAB PO (18:30)
[2024-03-29] MEDS: SACUBITRIL/VALSARTAN 24 MG-26 MG TABLET 2 TAB PO (21:39)
[2024-03-29] MEDS: AMITRIPTYLINE HCL 50 MG TABLET 300 MG PO (21:39)
[2024-03-29] MEDS: PRIMIDONE 50 MG TABLET 150 MG PO (21:40)
[2024-03-29] MEDS: APIXABAN 5 MG TABLET PO (21:40)
[2024-03-29] MEDS: FENTANYL 50 MCG/HR PATCH.TD72 100 MCG TD (21:40)
[2024-03-29] MEDS: PRAMIPEXOLE 1 MG TABLET PO (21:40)
[2024-03-29] MEDS: ATORVASTATIN CALCIUM 40 MG TABLET PO (21:40)
[2024-03-29] MEDS: DOXEPIN HCL 10 MG CAPSULE PO (21:40)
[2024-03-29] MEDS: TIZANIDINE HCL 4 MG TABLET PO (21:48)
[2024-03-30] VITALS (19 sets, daily range): BP systolic 125–152; BP diastolic 71–86; PULSE 71–97; TEMP 36.1–36.9; O2SAT 95–99
[2024-03-30] MEDS: OXYCODONE HCL/ACETAMINOPHEN 5MG/325MG 2 TAB PO (03:59)
[2024-03-30] MEDS: LEVOTHYROXINE SODIUM 100 MCG TABLET PO (05:31)
[2024-03-30 05:48] LABS: Basophils Percent Auto 0.2 % (0.2-2.0); Eosinophils Absolute Auto 0.2 10^3/uL (0.0-0.7); Eosinophils Percent Auto 3.6 % (0.9-7.0); Hematocrit 27.3 % (36.0-48.0); Hemoglobin 8.3 g/dL (12.0-16.0); Immature Granulocytes Abs Auto 0.02 10^3/uL (0.00-0.03); Immature Granulocytes Pct Auto 0.4 % (0.0-0.5); Lymphocytes Percent Auto 18.5 % (20.5-60.0); Mean Corpuscular HGB Conc 30.4 g/dL (29.9-35.2); Mean Corpuscular Hemoglobin 28.6 pg (26.7-34.0); Mean Corpuscular Volume 94.1 fL (81.0-99.0); Mean Platelet Volume 9.1 fL (9.5-13.5); Monocytes Absolute Auto 0.5 10^3/uL (0.3-0.8); Monocytes Percent Auto 10.1 % (1.7-12.0); Neutrophils Absolute Auto 3.5 10^3/uL (1.4-6.5); Neutrophils Percent Auto 67.2 % (43.0-75.0); Platelet Count 225 10^3/uL (150-450); White Blood Count 5.2 10^3/uL (4.0-11.0)
[2024-03-30 05:57] LABS: Anion Gap 10.5; BUN Creatinine Ratio 35.6; Calcium 8.3 mg/dL (8.5-10.1); Carbon Dioxide 25.3 mmol/L (21.0-32.0); Chloride 101 mmol/L (98-107); Estimated GFR (African America 36 (>=60 mL/min/1.73m^2); Estimated GFR (Non-African Ame 30 (>=60 mL/min/1.73m^2); Glucose 94 mg/dL (74-106); Potassium 3.8 mmol/L (3.5-5.1); Sodium 133 mmol/L (136-145)
--- NOTE | 2024-03-30 08:08 | PM.PN ---
Progress Note: Subjective Subjective Interval history: Patient still complains of swelling in her left lower extremity predominantly. Swelling of right lower extremity as well. She does have her compression pump in place. No dyspnea Exam Constitutional Vital Signs, click to edit/add: Last Vital Signs Temp 97 F L 03/30/24 07:33 Pulse 74 03/30/24 07:33 Resp 20 03/30/24 07:33 BP 134/79 03/30/24 07:33 Pulse Ox 95 03/30/24 07:33 O2 Del Method Room Air 03/30/24 07:33 Documenting provider has reviewed patient's vital signs: yes Common normals: no apparent distress Chest Common normals: inspection of chest normal Respiratory Common normals: normal respiratory effort (Mild conversational dyspnea than yesterday resolved), no retractions, no use of accessory muscles and clear to auscultation bilaterally Cardio Common normals: regular rate (Slightly tacky) and regular rhythm GI Common normals: Normal to inspection, nondistended, normoactive bowel sounds present (Morbidly obese) Extremity Common normals: abnormal to inspection (3-4+ pitting edema bilateral lower extremities plus signs of lymphedema) Progress Note: Objective Labs Labs: Short CBC 03/29/24 03/30/24 Range/Units 14:20 05:40 WBC 6.9 5.2 (4.0-11.0) 10^3/uL Hgb 8.7 L 8.3 L (12.0-16.0) g/dL Hct 28.3 L 27.3 L (36.0-48.0) % Plt Count 244 225 (150-450) 10^3/uL BMP 03/29/24 03/30/24 14:20 05:40 Sodium 133 L 133 L Potassium 4.1 3.8 Chloride 100 101 Carbon Dioxide 24.4 25.3 BUN 62.0 H 62.0 H Creatinine 1.93 H 1.74 H Glucose 102 94 Calcium 8.5 8.3 L Progress Note: A&P Assessment and Plan (1) Fluid overload: Assessment and Plan: Diuresed 5.1 L since yesterday evening, a net of 3.6, repeat Bumex drip again today (2) C2 cervical fracture: Assessment and Plan: Pain stable (3) Shoulder pain, left: Assessment and Plan: Pain stable (4) Chronic kidney insufficiency: Assessment and Plan: Creatinine actually improved today, continue with diuresis, suspect will be elevated tomorrow Qualifiers: Chronic kidney disease stage: stage 3 (moderate) (5) Lymphedema: Assessment and Plan: Using her compression pumps (6) Anemia of chronic disease: Assessment and Plan: Down somewhat today, check occult blood (7) Acute kidney injury: Assessment and Plan: Creatinine improved (8) Depression: Assessment and Plan: Continue with home medications (9) Dyspnea: Assessment and Plan: Improved (10) Osteoarthritis: Assessment and Plan: Continue with home medications (11) COPD (chronic obstructive pulmonary disease): Assessment and Plan: Stable and clear (12) HTN (hypertension): Assessment and Plan: Well-controlled (13) H/O gastric bypass: Assessment and Plan: No current complications (14) Pulmonary embolism: Assessment and Plan: On [place] all Systems are negative except as noted/marked.All systems reviewed and otherwise negative (15) DVT (deep venous thrombosis): Assessment and Plan: On Eliquis but left leg swelling and more pain, she feels it feels like she did when she had her DVT, check ultrasound (16) CHF (congestive heart failure): Assessment and Plan: Lab work was stable on admission, consider repeat but currently no symptoms Qualifiers: Heart failure type: combined systolic and diastolic Heart failure chronicity: chronic Qualified Code(s): I50.42 - Chronic combined systolic (congestive) and diastolic (congestive) heart failure (17) Mixed hypercholesterolemia and hypertriglyceridemia: Assessment and Plan: Maintain current medications (18) Morbid obesity with BMI of 40.0-44.9, adult: Assessment and Plan: Status post gastric bypass, continue to work on diet (19) Atelectasis of both lungs: Assessment and Plan: On chest x-ray on admission-clear today (20) Recurrent UTI: Assessment and Plan: Urinalysis pending Plan Patient status: Patient mated with failed outpatient treatment of fluid overload, 3 days prior to admission we doubled her diuretics, no significant improvement in fact her weight continued to elevate, medically necessary treatment will span 2 midnights. Inpatient status.
--- NOTE | 2024-03-30 08:09 | US_ITS ---
The [address] [address] Patient Name: JOSE CLEMENTS MRN: [id number] date: 1960 Sex: F Assigned Patient Location: [place] Current Patient Location: [place] Accession/Order Number: [id number] Exam Date: 03/30/2024 12:15 Report Date: 03/30/2024 15:41 At the request of: ANGLE SANTANA Procedure: US venous doppler LE LT EXAM: US venous doppler LE LT HISTORY: Left lower post thigh pain, edema COMPARISON: 02/28/2024 TECHNIQUE: Multiple sonographic images of the deep veins of the left lower extremity were obtained, supplemented with Doppler. FINDINGS: The deep veins of the left lower extremity are fairly well-visualized the groin to the mid calf. No filling defect is identified to indicate a thrombus. There is normal compression augmentation of flow throughout. US/US venous doppler LE LT IMPRESSION: There is no direct or indirect evidence of deep vein thrombosis in the left lower extremity at this time. Similar findings were noted in the prior study. Electronically authenticated by: RAGINI LIMON Date: 03/30/2024 15:41
[2024-03-30] MEDS: DESVENLAFAXINE SUCCINATE 50 MG TAB.ER.24H PO (09:02)
[2024-03-30] MEDS: SACUBITRIL/VALSARTAN 24 MG-26 MG TABLET 2 TAB PO ×2 (09:02→21:06)
[2024-03-30] MEDS: SEVELAMER CARBONATE 800 MG TABLET PO ×3 (09:02→16:49)
[2024-03-30] MEDS: DOXEPIN HCL 10 MG CAPSULE PO ×2 (09:02→21:07)
[2024-03-30] MEDS: ESCITALOPRAM 10 MG TABLET 20 MG PO (09:02)
[2024-03-30] MEDS: ARIPIPRAZOLE 2 MG TABLET PO (09:02)
[2024-03-30] MEDS: APIXABAN 5 MG TABLET PO ×2 (09:02→21:06)
[2024-03-30] MEDS: CALCIUM ACETATE 667 MG CAPSULE PO ×2 (09:03→16:49)
[2024-03-30] MEDS: HYDROMORPHONE HCL 0.5 MG/0.5 ML SYRINGE IV ×4 (09:19→23:07)
[2024-03-30 11:03] LABS: Bilirubin Urine NEGATIVE (NEGATIVE); Blood Urine NEGATIVE (NEGATIVE); Clarity Urine CLEAR (CLEAR); Color Urine LT. YELLOW (YELLOW); Glucose Urine UA NEGATIVE (NEGATIVE); Ketones Urine NEGATIVE (NEGATIVE); Leukocyte Esterase Urine NEGATIVE (NEGATIVE); Nitrite Urine NEGATIVE (NEGATIVE); Protein Urine NEGATIVE (NEG/TRACE); Urobilinogen Urine 0.2 EU/dL (0.2-1.0)
[2024-03-30 11:16] LABS: Bacteria Urine NONE SEEN #/HPF (NONE SEEN); Cast Seen? NONE SEEN #/LPF (NONE SEEN); Crystals Seen? None Seen #/HPF (None Seen); Mucus Urine NONE SEEN (NONE SEEN); RBC Urine NONE SEEN #/HPF (0-2); Squamous Epithelial Cell Urine RARE #/LPF (NONE/RARE); Urine Culture Indicated NO; WBC Urine NONE SEEN #/HPF (NONE SEEN)
[2024-03-30] MEDS: BUMETANIDE 10 MG in 0.9 % SODIUM CHLORIDE 160 ML 20 MG IV (13:18)
[2024-03-30] MEDS: ALBUTEROL SULFATE 2.5 MG/3 ML VIAL NEB IH (20:09)
[2024-03-30] MEDS: BUDESONIDE 0.5 MG/2 ML AMPULE NEB IH (20:09)
[2024-03-30] MEDS: TIZANIDINE HCL 4 MG TABLET PO (21:07)
[2024-03-30] MEDS: ATORVASTATIN CALCIUM 40 MG TABLET PO (21:07)
[2024-03-30] MEDS: PRAMIPEXOLE 1 MG TABLET PO (21:07)
[2024-03-30] MEDS: AMITRIPTYLINE HCL 50 MG TABLET 300 MG PO (21:07)
[2024-03-30] MEDS: PRIMIDONE 50 MG TABLET 150 MG PO (21:07)
[2024-03-31] VITALS (21 sets, daily range): BP systolic 83–147; BP diastolic 45–86; PULSE 73–109; TEMP 36.5–37.1; O2SAT 91–99
[2024-03-31] MEDS: HYDROMORPHONE HCL 0.5 MG/0.5 ML SYRINGE IV ×4 (04:23→20:45)
[2024-03-31] MEDS: LEVOTHYROXINE SODIUM 100 MCG TABLET PO (05:30)
[2024-03-31 05:39] LABS: Basophils Percent Auto 0.4 % (0.2-2.0); Eosinophils Absolute Auto 0.2 10^3/uL (0.0-0.7); Eosinophils Percent Auto 3.5 % (0.9-7.0); Hemoglobin 9.2 g/dL (12.0-16.0); Immature Granulocytes Abs Auto 0.03 10^3/uL (0.00-0.03); Immature Granulocytes Pct Auto 0.4 % (0.0-0.5); Lymphocytes Absolute Auto 1.3 10^3/uL (1.2-3.8); Lymphocytes Percent Auto 18.8 % (20.5-60.0); Mean Corpuscular HGB Conc 30.7 g/dL (29.9-35.2); Mean Corpuscular Hemoglobin 28.9 pg (26.7-34.0); Mean Corpuscular Volume 94.3 fL (81.0-99.0); Mean Platelet Volume 8.9 fL (9.5-13.5); Monocytes Absolute Auto 0.6 10^3/uL (0.3-0.8); Monocytes Percent Auto 8.2 % (1.7-12.0); Neutrophils Absolute Auto 4.7 10^3/uL (1.4-6.5); Neutrophils Percent Auto 68.7 % (43.0-75.0); Platelet Count 264 10^3/uL (150-450); Red Blood Count 3.18 10^6/uL (4.20-5.40); Red Cell Distribution Width 14.9 % (11.0-15.0); White Blood Count 6.9 10^3/uL (4.0-11.0)
[2024-03-31 05:49] LABS: Anion Gap 14.4; BUN Creatinine Ratio 31.5; Calcium 8.2 mg/dL (8.5-10.1); Carbon Dioxide 25.5 mmol/L (21.0-32.0); Chloride 99 mmol/L (98-107); Estimated GFR (African America 34 (>=60 mL/min/1.73m^2); Estimated GFR (Non-African Ame 28 (>=60 mL/min/1.73m^2); Glucose 142 mg/dL (74-106); Potassium 3.9 mmol/L (3.5-5.1); Sodium 135 mmol/L (136-145)
--- NOTE | 2024-03-31 08:15 | P.PN_ITS ---
Progress Note: Subjective Subjective Interval history: Patient still finding of pain and swelling in left leg. Has swelling in right leg as well just not as painful. She states her dyspnea that she had on admission is improved, she can walk further with less shortness of breath Exam Constitutional Vital Signs, click to edit/add: Last Vital Signs Temp 97.7 F 03/31/24 04:00 Pulse 83 03/31/24 08:00 Resp 18 03/31/24 04:00 BP 106/68 03/31/24 04:00 Pulse Ox 96 03/31/24 04:01 O2 Del Method Room Air 03/31/24 04:01 Documenting provider has reviewed patient's vital signs: yes Common normals: no apparent distress Chest Common normals: inspection of chest normal Respiratory Common normals: normal respiratory effort (Mild conversational dyspnea than yesterday resolved), no retractions, no use of accessory muscles and clear to auscultation bilaterally Cardio Common normals: regular rate (Slightly tacky) and regular rhythm GI Common normals: Normal to inspection, nondistended, normoactive bowel sounds present (Morbidly obese) Extremity Common normals: abnormal to inspection (2-3+ pitting edema bilateral lower extremities plus signs of lymphedema) Progress Note: Objective Labs Labs: Short CBC 03/31/24 Range/Units 05:28 WBC 6.9 (4.0-11.0) 10^3/uL Hgb 9.2 L (12.0-16.0) g/dL Hct 30.0 L (36.0-48.0) % Plt Count 264 (150-450) 10^3/uL BMP 03/31/24 05:28 Sodium 135 L Potassium 3.9 Chloride 99 Carbon Dioxide 25.5 BUN 57.0 H Creatinine 1.81 H Glucose 142 H Calcium 8.2 L Urine 03/30/24 Range/Units 09:25 Urine Color Lt. yellow (YELLOW) Urine Clarity Clear (CLEAR) Urine pH 6.0 (5.0-9.0) Ur Specific [place] 1.010 (1.005-1.025) Urine Protein Negative (NEG/TRACE) mg/dL Urine Glucose (UA) Negative (NEGATIVE) mg/dL Progress Note: A&P Assessment and Plan (1) Fluid overload: Assessment and Plan: Patient is down 4.1 kg but still probably has admitted to 3 kg grams of excess weight, repeat Bumex drip (2) C2 cervical fracture: Assessment and Plan: Pain stable (3) Shoulder pain, left: Assessment and Plan: Pain stable (4) Chronic kidney insufficiency: Assessment and Plan: Creatinine is up slightly today. Still below where she was on admission Qualifiers: Chronic kidney disease stage: stage 3 (moderate) (5) Lymphedema: Assessment and Plan: Using her compression pumps (6) Anemia of chronic disease: Assessment and Plan: Improved today as expected with diuresis (7) Acute kidney injury: Assessment and Plan: Up slightly today but still less than admission (8) Depression: Assessment and Plan: Continue with home medications (9) Dyspnea: Assessment and Plan: Improved (10) Osteoarthritis: Assessment and Plan: Continue with home medications (11) COPD (chronic obstructive pulmonary disease): Assessment and Plan: Stable and clear (12) HTN (hypertension): Assessment and Plan: Well-controlled (13) H/O gastric bypass: Assessment and Plan: No current complications (14) Pulmonary embolism: Assessment and Plan: On Eliquis maintain that-ultrasound of left lower extremity yesterday was negative (15) DVT (deep venous thrombosis): Assessment and Plan: Pain persisting, ultrasound negative, pain likely from the edema (16) CHF (congestive heart failure): Assessment and Plan: Continue to follow Qualifiers: Heart failure type: combined systolic and diastolic Heart failure chronicity: chronic Qualified Code(s): I50.42 - Chronic combined systolic (congestive) and diastolic (congestive) heart failure (17) Mixed hypercholesterolemia and hypertriglyceridemia: Assessment and Plan: Maintain current medications (18) Morbid obesity with BMI of 40.0-44.9, adult: Assessment and Plan: Status post gastric bypass, continue to work on diet (19) Atelectasis of both lungs: Assessment and Plan: On chest x-ray on admission-clear today (20) Recurrent UTI: Assessment and Plan: Urinalysis pending (21) Hyponatremia: Assessment and Plan: Due to fluid overload-improving daily (22) Hyperglycemia: Assessment and Plan: Borderline elevated this morning-will repeat in a.m. Plan Patient status: Patient admitted with failed outpatient treatment of fluid overload, 3 days prior to admission we doubled her diuretics, no significant improvement in fact her weight continued to elevate, medically necessary treatment will span 2 midnights. Inpatient status. 1 more day of IV Bumex likely discharge in a.m.
[2024-03-31] MEDS: SEVELAMER CARBONATE 800 MG TABLET PO ×2 (08:46→16:26)
[2024-03-31] MEDS: BUMETANIDE 10 MG in 0.9 % SODIUM CHLORIDE 160 ML 20 MG IV (08:46)
[2024-03-31] MEDS: ESCITALOPRAM 10 MG TABLET 20 MG PO (08:46)
[2024-03-31] MEDS: DOXEPIN HCL 10 MG CAPSULE PO ×2 (08:46→20:37)
[2024-03-31] MEDS: ARIPIPRAZOLE 2 MG TABLET PO (08:46)
[2024-03-31] MEDS: CALCIUM ACETATE 667 MG CAPSULE PO ×2 (08:46→16:26)
[2024-03-31] MEDS: APIXABAN 5 MG TABLET PO ×2 (08:46→20:38)
[2024-03-31] MEDS: SACUBITRIL/VALSARTAN 24 MG-26 MG TABLET 2 TAB PO ×2 (08:46→20:37)
[2024-03-31] MEDS: LUBIPROSTONE 24 MCG CAPSULE PO (08:46)
[2024-03-31] MEDS: DESVENLAFAXINE SUCCINATE 50 MG TAB.ER.24H PO (08:46)
[2024-03-31] MEDS: ALBUTEROL SULFATE 2.5 MG/3 ML VIAL NEB IH (11:30)
[2024-03-31] MEDS: BUDESONIDE 0.5 MG/2 ML AMPULE NEB IH (11:30)
[2024-03-31] MEDS: TIZANIDINE HCL 4 MG TABLET PO (18:30)
[2024-03-31] MEDS: PRAMIPEXOLE 1 MG TABLET PO (20:38)
[2024-03-31] MEDS: AMITRIPTYLINE HCL 50 MG TABLET 300 MG PO (21:14)
[2024-03-31] MEDS: ATORVASTATIN CALCIUM 40 MG TABLET PO (21:14)
[2024-03-31] MEDS: PRIMIDONE 50 MG TABLET 150 MG PO (21:14)
[2024-04-01] VITALS (7 sets, daily range): BP systolic 90–133; BP diastolic 52–83; PULSE 72–115; TEMP 36.6–36.9; O2SAT 91–92
[2024-04-01] MEDS: HYDROMORPHONE HCL 0.5 MG/0.5 ML SYRINGE IV ×2 (01:41→09:58)
[2024-04-01 05:23] LABS: Basophils Percent Auto 0.3 % (0.2-2.0); Eosinophils Absolute Auto 0.3 10^3/uL (0.0-0.7); Eosinophils Percent Auto 4.3 % (0.9-7.0); Hematocrit 26.3 % (36.0-48.0); Hemoglobin 8.1 g/dL (12.0-16.0); Immature Granulocytes Abs Auto 0.03 10^3/uL (0.00-0.03); Immature Granulocytes Pct Auto 0.5 % (0.0-0.5); Lymphocytes Absolute Auto 1.5 10^3/uL (1.2-3.8); Lymphocytes Percent Auto 25.5 % (20.5-60.0); Mean Corpuscular HGB Conc 30.8 g/dL (29.9-35.2); Mean Corpuscular Hemoglobin 28.9 pg (26.7-34.0); Mean Corpuscular Volume 93.9 fL (81.0-99.0); Mean Platelet Volume 8.7 fL (9.5-13.5); Monocytes Absolute Auto 0.7 10^3/uL (0.3-0.8); Monocytes Percent Auto 11.7 % (1.7-12.0); Neutrophils Absolute Auto 3.5 10^3/uL (1.4-6.5); Neutrophils Percent Auto 57.7 % (43.0-75.0); Platelet Count 231 10^3/uL (150-450); Red Cell Distribution Width 15.1 % (11.0-15.0)
[2024-04-01 05:32] LABS: Anion Gap 7.2; BUN Creatinine Ratio 29.7; Chloride 99 mmol/L (98-107); Estimated GFR (African America 32 (>=60 mL/min/1.73m^2); Estimated GFR (Non-African Ame 26 (>=60 mL/min/1.73m^2); Glucose 96 mg/dL (74-106); Potassium 4.2 mmol/L (3.5-5.1); Sodium 131 mmol/L (136-145)
[2024-04-01] MEDS: LEVOTHYROXINE SODIUM 100 MCG TABLET PO (05:38)
--- NOTE | 2024-04-01 07:43 | PM.DS1 ---
DS: Providers Provider Date of admission: 03/29/24 16:01 Primary care physician: Yuri Godinez MD Consults: 03/29/24 16:37 Consult to Pharmacy Routine Consulting Provider: Reason for consultation: Please [place] me when Med Rec is Updated Has provider been notified: No Occupational Therapy Eval and Treat Routine Reason for consultation: Only if needed for Rehab Has provider been notified: No Physical Therapy Eval and Treat Routine Reason for consultation: Eval and Treat Has provider been notified: No DS: Diagnosis Discharge Diagnosis (1) Fluid overload: Assessment and plan: Improving at the time of discharge (2) C2 cervical fracture: Assessment and plan: Stable at the time of discharge (3) Shoulder pain, left: Assessment and plan: Stable at the time of discharge (4) Chronic kidney insufficiency: Assessment and plan: Deteriorating slightly at the time of discharge Qualifiers: Chronic kidney disease stage: stage 3 (moderate) (5) Lymphedema: Assessment and plan: Improving at the time of discharge (6) Anemia of chronic disease: Assessment and plan: Deteriorated slightly at the time of discharge (7) Acute kidney injury: Assessment and plan: Deteriorated slightly at the time of discharge (8) Depression: Assessment and plan: Stable at the time of discharge (9) Dyspnea: Assessment and plan: Improving at the time of discharge (10) Osteoarthritis: Assessment and plan: Stable at the time of discharge (11) COPD (chronic obstructive pulmonary disease): Assessment and plan: Stable at the time of discharge (12) HTN (hypertension): Assessment and plan: Stable to time of discharge (13) H/O gastric bypass: Assessment and plan: Stable to time of discharge (14) Pulmonary embolism: Assessment and plan: Stable to time of discharge (15) DVT (deep venous thrombosis): Assessment and plan: Stable to time of discharge (16) CHF (congestive heart failure): Assessment and plan: Stable at the time of discharge Qualifiers: Heart failure type: combined systolic and diastolic Heart failure chronicity: chronic Qualified Code(s): I50.42 - Chronic combined systolic (congestive) and diastolic (congestive) heart failure (17) Mixed hypercholesterolemia and hypertriglyceridemia: Assessment and plan: Continue medications at discharge (18) Morbid obesity with BMI of 40.0-44.9, adult: Assessment and plan: Diet management (19) Atelectasis of both lungs: Assessment and plan: Adult with dental discharge (20) Recurrent UTI: Assessment and plan: Stable at discharge (21) Hyponatremia: Assessment and plan: Deteriorated slightly at discharge (22) Hyperglycemia: Assessment and plan: Resolved at discharge (23) Sinus tachycardia: Assessment and plan: Resolved at discharge Plan See me in the office later this week, medications see list DS: Summary Hospital Course Hospital Course: Patient was seen and evaluated in the office 3 days prior to admission. Her medications for Aldactone and Bumex were tripled. She continued to have increasing weight gain of 4 more pounds for a total of 16 pounds prior to admission. Initial workup did not reveal any evidence for heart failure so she is just in fluid overload status related to her lymphedema and chronic combined congestive heart failure. He was given IV Bumex on 3 occasions 10-hour drip. She diuresed a total of 13.1 L with a net of sit 9.6. Her legs are less tense this morning. She does still have some edema. Her creatinine did elevate slightly but is actually back to level at admission. Plan for the morning is to give her 1 dose of IV Bumex and restart her Aldactone and discharge after breakfast. Medications see list. Follow-up with me in the office later this week. Status at Discharge Overall status at discharge: patient is not back to baseline Time Spent with Patient Time attestation: Total time spent providing and/or coordinating discharge services: Time spent: greater than 30 minutes Exam Constitutional Vital Signs, click to edit/add: Last Vital Signs Temp 97.8 F 04/01/24 03:17 Pulse 79 04/01/24 05:57 Resp 18 04/01/24 03:17 BP 90/52 04/01/24 03:17 Pulse Ox 91 L 04/01/24 03:17 O2 Del Method Room Air 04/01/24 03:17 Documenting provider has reviewed patient's vital signs: yes Common normals: no apparent distress Chest Common normals: inspection of chest normal Respiratory Common normals: normal respiratory effort (Mild conversational dyspnea than yesterday resolved), no retractions, no use of accessory muscles and clear to auscultation bilaterally Cardio Common normals: regular rate (Slightly tacky) and regular rhythm GI Common normals: Normal to inspection, nondistended, normoactive bowel sounds present (Morbidly obese) Extremity Common normals: abnormal to inspection (2+ pitting edema bilateral lower extremities-close to baseline) DS: Data Data Completed and Pending Labs on day of discharge: Labs from last 24 hours 04/01/24 04/01/24 05:13 04:00 WBC 6.0 RBC 2.80 L Hgb 8.1 L Hct 26.3 L MCV 93.9 MCH 28.9 MCHC 30.8 RDW 15.1 H Plt Count 231 MPV 8.7 L Neut % (Auto) 57.7 Lymph % (Auto) 25.5 Gordon % (Auto) 11.7 Eos % (Auto) 4.3 Baso % (Auto) 0.3 Neut # (Auto) 3.5 Lymph # (Auto) 1.5 Gordon # (Auto) 0.7 Eos # (Auto) 0.3 Baso # (Auto) 0.0 Abs Immat Gran (auto) 0.03 Imm/Tot Granulo (auto) 0.5 Sodium 131 L Potassium 4.2 Chloride 99 Carbon Dioxide 29.0 Anion Gap 7.2 BUN 57.0 H Creatinine 1.92 H Est GFR ( Amer) 32 L Est GFR (Non-Af Amer) 26 L BUN/Creatinine Ratio 29.7 Glucose 96 Calcium 8.0 L Discharge Plan Discharge Disposition: Home, Self-Care Condition: Fair Discharge Medications: Continued aripiprazole [Abilify] 2 mg tablet 2 mg PO DAILY bumetanide 1 mg tablet 6 mg PO DAILY Hold Instructions: Resume on 02/16/23. until cleared by PCP butorphanol 10 mg/mL spray,non-aerosol 1 spray INTRANASAL .QD PRN (Reason: pain) desvenlafaxine succinate 50 mg tablet extended release 24 hr 50 mg PO DAILY diclofenac sodium 1 % gel 2 g TOPICAL .QD PRN (Reason: PAIN/INFLAMMATION) doxepin 10 mg capsule 10 mg PO BID escitalopram oxalate 20 mg tablet 20 mg PO DAILY azelastine 0.05 % drops 1 drp OPHTHALMIC (EYE) DAILY fentanyl 100 mcg/hr patch 72 hour 1 patch transdermal Q72H pramipexole 1 mg tablet 1 mg PO .qd atorvastatin 40 mg tablet 40 mg PO .HS sevelamer carbonate 800 mg tablet 800 mg PO TID fluticasone furoate-vilanterol [Breo Ellipta] 100-25 mcg/dose blister with device 1 inh INHALATION Q24H evwksjtbwr-flkivfitsbwss-ijiw 50-300-40 mg capsule Eliquis 5 mg tablet 5 mg PO BID Rx Instructions: 2 po BID for 1 week then 1 po BID for life alprazolam 0.5 mg tablet 0.5 mg PO BID PRN (Reason: anxiety) amitriptyline 150 mg tablet 300 mg PO BEDTIME calcium acetate(phosphat bind) 667 mg capsule 667 mg PO BIDWM levothyroxine 100 mcg tablet 100 mcg PO DAILY Linzess 290 mcg capsule 290 mcg PO DAILY Hold Instructions: PCP order primidone 50 mg tablet 150 mg PO BEDTIME tizanidine [Zanaflex] 4 mg tablet 4 mg PO Q6H PRN (Reason: muscle spasticity) oxycodone-acetaminophen 5-325 mg tablet 2 tab PO Q6H PRN (Reason: pain) Entresto 49-51 mg tablet 1 tab PO BID spironolactone 50 mg tablet 50 mg PO Q12H Print Language: Norwegian Forms: Portal Instructions
[2024-04-01] MEDS: SEVELAMER CARBONATE 800 MG TABLET PO (08:17)
[2024-04-01] MEDS: CALCIUM ACETATE 667 MG CAPSULE PO (08:18)
[2024-04-01] MEDS: DESVENLAFAXINE SUCCINATE 50 MG TAB.ER.24H PO (08:18)
[2024-04-01] MEDS: ESCITALOPRAM 10 MG TABLET 20 MG PO (08:18)
[2024-04-01] MEDS: DOXEPIN HCL 10 MG CAPSULE PO (08:18)
[2024-04-01] MEDS: APIXABAN 5 MG TABLET PO (08:18)
[2024-04-01] MEDS: SPIRONOLACTONE 25 MG TABLET 50 MG PO (08:18)
[2024-04-01] MEDS: ARIPIPRAZOLE 2 MG TABLET PO (08:18)
[2024-04-01] MEDS: SACUBITRIL/VALSARTAN 24 MG-26 MG TABLET 2 TAB PO (08:18)
[2024-04-01] MEDS: BUMETANIDE 1 MG/4 ML VIAL 2 MG IVP (08:47)
[2024-04-01] MEDS: LUBIPROSTONE 24 MCG CAPSULE PO (08:49)
[2024-04-01] MEDS: DICLOFENAC SODIUM 1% 100 GM TUBE TOPICAL (08:50)
[2024-04-01] MEDS: HEPARIN SODIUM (PORCINE) PF LOCK FLUSH 500 UNIT/5 ML SYRINGE IV (09:59)
--- NOTE | 2024-04-01 10:55 | CM.NOTE ---
New Referral has been sent to [address] for services, sent Progress notes, PT notes, vitals & labs.
--- NOTE | 2024-04-01 11:30 | CM.NOTE ---
Important Message From Medicare discussed with pt, pt verbalizes understanding and signs paper. Original given to pt and copy placed on pt's chart.
--- NOTE | 2024-04-01 13:07 | SWNOTE1 ---
SW spoke to case management and pt does want home health. Case management sent referral to [facility], that was pt's preference as she has had them in the past.
--- NOTE | 2024-04-01 15:46 | SWNOTE1 ---
SW received call from [facility], and pt was scheduled for outpt appointment tomorrow and she can't do both HH and outpt. SW did speak with case management and pt has been struggling getting places and that is why she preferred HH. SW called and spoke with pt and let her know [facility] has accepted. Pt does prefer [facility] to come in and she will resume outpt once she is feeling better. Pt is aware that she can't do both. [facility] has all information needed.
--- NOTE | 2024-04-02 12:41 | CM.DCFOLLOWU ---
Person spoke with: Mabel How are you feeling? Much better How is your pain? No pain Did you understand your discharge instructions? Yes Do you have any questions about your discharge instructions? No Were you given any prescriptions at discharge? No Were you able to get your prescriptions filled? N/A Do you understand how to take your medications as ordered? Yes Do you have any questions about your follow up appointment and do you plan to keep your follow up appointment? No questions scheduled for Apr 05 Is there anything else that you would like to discuss? No Questions/Comments/Concerns/Other:
== END 2024-04-01 11:03 | disposition home or self-care (01) | DRG 292 ==
LOC: ER 15:25 → MS 16:17
PROVIDERS: Admitting Provider Family Medicine; Emergency Provider Emergency Medicine; PCP Family Medicine; Visit Provider Family Medicine
DX: I13.0 Hypertensive heart and chronic kidney disease with heart failure and stage 1 through stage 4 chronic kidney disease, or unspecified chronic kidney disease (principal); E87.1 Hypo-osmolality and hyponatremia; I50.42 Chronic combined systolic (congestive) and diastolic (congestive) heart failure; N17.9 Acute kidney failure, unspecified; J98.11 Atelectasis; N39.0 Urinary tract infection, site not specified; Z68.41 Body mass index [BMI] 40.0-44.9, adult; I89.0 Lymphedema, not elsewhere classified; N18.30 Chronic kidney disease, stage 3 unspecified; D63.1 Anemia in chronic kidney disease; E78.2 Mixed hyperlipidemia; E66.01 Morbid (severe) obesity due to excess calories; E78.1 Pure hyperglyceridemia; F32.A Depression, unspecified; J44.9 Chronic obstructive pulmonary disease, unspecified; M19.90 Unspecified osteoarthritis, unspecified site; M25.512 Pain in left shoulder; R73.9 Hyperglycemia, unspecified; R00.0 Tachycardia, unspecified; S12.100D Unspecified displaced fracture of second cervical vertebra, subsequent encounter for fracture with routine healing; Z98.84 Bariatric surgery status; Z86.711 Personal history of pulmonary embolism; Z79.01 Long term (current) use of anticoagulants; Z79.51 Long term (current) use of inhaled steroids; Z79.890 Hormone replacement therapy; Z79.899 Other long term (current) drug therapy; Z88.1 Allergy status to other antibiotic agents; Z88.2 Allergy status to sulfonamides; Z88.3 Allergy status to other anti-infective agents; Z87.440 Personal history of urinary (tract) infections; D64.9 Anemia, unspecified
CPT/HCPCS: 23350; 36415; 36591; 71045; 73222; 77002; 80048; 80053; 81001; 83880; 83930; 84484; 85025; 93005; 93971; 94640; 94667; 94668; 94761; 97161; 99285; A9575; G0328; G0463; J1171; J1642; Q9966

== ENCOUNTER 2024-04-09 09:06 | Day surgery (SDC) | payer MEDICARE, MEDICAID, SELFPAY ==
[2024-04-09 09:20] VITALS: BP 154/93; PULSE 56; TEMP 36.3; O2SAT 97
[2024-04-09 10:09] VITALS: PULSE 88; O2SAT 98
[2024-04-09 10:10] VITALS: BP 173/84; PULSE 90; O2SAT 98
[2024-04-09 10:11] VITALS: BP 174/79
[2024-04-09] MEDS: BUPIVACAINE HCL 0.25% PF 25 MG/10 ML VIAL 4 ML INJ (10:12)
[2024-04-09] MEDS: IOHEXOL 240 MG/ML - 10 ML VIAL 24 MG INJ (10:12)
[2024-04-09] MEDS: METHYLPREDNISOLONE ACETATE 40 MG/ML VIAL INJ (10:13)
[2024-04-09] MEDS: LIDOCAINE HCL 2% PF 100 MG/5 ML VIAL 4 ML INJ (10:13)
--- NOTE | 2024-04-09 10:29 | W.PM.PROCNOT ---
Date of procedure: 04/09/24 Pre-op diagnosis: Left knee osteoarthritis Post-op diagnosis: same as pre-op Procedure: Procedure: Left knee joint injection Immediate complications none. Anesthesia: 2% lidocaine plain for skin wheal. After informed consent was obtained, patient brought to the OR placed in the supine position. Skin overlying the area was prepped and draped using betadine. 25-gauge 1/2 inch needle was used for skin wheal over the medial aspect of the right knee joint identified under fluoroscopy. Omnipaque dye was used to confirm needle tip placement within the knee joint space 0.5 mL use of the injection. Subsequently Depomedrol 40mg and Marcaine 0.25% 4ml was injected into the space. No indication of intravascular or intraneuronal needle tip placement or injection was noted post procedure. The needle was removed, patient transferred to Recovery room in stable condition to discharged home after meeting criteria. Anesthesia: Local Surgeon: Terry David Condition: stable
== END 2024-04-09 10:16 | disposition home or self-care (01) ==
LOC: SURGOUT 09:07
PROVIDERS: PCP Family Medicine; Visit Provider Anesthesiology Pain Medicine
DX: M17.12 Unilateral primary osteoarthritis, left knee (principal)
CPT/HCPCS: 20610; 77002; J0665; J1010; Q9966

== ENCOUNTER 2024-04-17 13:04 | Outpatient (OUT) | payer MEDICARE, MEDICAID, SELFPAY ==
--- NOTE | 2024-04-17 13:29 | PM.CN ---
Consult Note: HPI Data of Consult Patient: known to practice within the last 3 years Requesting Physician: Louann Jackson NP Primary Care Provider: Yuri Godinez MD Consult Narrative Reason for consult: f/u Narrative: Mabel Moser a pleasant 63 year old female presents for evaluation and management of chronic pain. Today pain 0/10 in left knee, hips, groin, buttocks, and low back. Patient reports >80% improvement from recent left knee injection providing 85% improvement ongoing. Patient currently dealing with kidney issues and severe bilateral leg edema, following with PCP and nephrology. Medications are currently managed by her PCP. cc:: CC: Louann Jackson NP Review of Systems ROS Status of ROS 10 or more systems reviewed and unremarkable except as noted in history and below Musculoskeletal Reports: joint pain PFSH PFSH Medical History Hyperglycemia ?R73.9 - Hyperglycemia, unspecified (ICD-10) Recurrent UTI ?N39.0 - Urinary tract infection, site not specified (ICD-10) Atelectasis of both lungs ?J98.11 - Atelectasis (ICD-10) C2 cervical fracture ?S12.100A - Unspecified displaced fracture of second cervical vertebra, initial encounter for closed fracture (ICD-10) Shoulder pain, left ?M25.512 - Pain in left shoulder (ICD-10) Pulmonary embolism ?I26.99 - Other pulmonary embolism without acute cor pulmonale (ICD-10) DVT (deep venous thrombosis) ?I82.409 - Acute embolism and thrombosis of unspecified deep veins of unspecified lower extremity (ICD-10) Osteoporosis ?M81.0 - Age-related osteoporosis without current pathological fracture (ICD-10) Seizures ?R56.9 - Unspecified convulsions (ICD-10) IBS (irritable bowel syndrome) ?K58.9 - Irritable bowel syndrome without diarrhea (ICD-10) D-dimer, elevated ?R79.89 - Other specified abnormal findings of blood chemistry (ICD-10) Chronic kidney insufficiency ?N18.9 - Chronic kidney disease, unspecified (ICD-10) Fluid overload ?E87.70 - Fluid overload, unspecified (ICD-10) Lymphedema ?I89.0 - Lymphedema, not elsewhere classified (ICD-10) Volume overload ?E87.70 - Fluid overload, unspecified (ICD-10) Anemia of chronic disease ?D63.8 - Anemia in other chronic diseases classified elsewhere (ICD-10) Chronic kidney disease ?N18.9 - Chronic kidney disease, unspecified (ICD-10) Acute kidney injury ?N17.9 - Acute kidney failure, unspecified (ICD-10) Edema of lower leg due to peripheral venous insufficiency ?I87.2 - Venous insufficiency (chronic) (peripheral) (ICD-10) ?R60.0 - Localized edema (ICD-10) Depression ?F32.A - Depression, unspecified (ICD-10) Gastroenteritis ?K52.9 - Noninfective gastroenteritis and colitis, unspecified (ICD-10) Migraine without aura and without status migrainosus, not intractable ?G43.009 - Migraine without aura, not intractable, without status migrainosus (ICD-10) Chronic heart failure with preserved ejection fraction (HFpEF) ?I50.32 - Chronic diastolic (congestive) heart failure (ICD-10) Chest pain ?R07.9 - Chest pain, unspecified (ICD-10) Dyspnea ?R06.00 - Dyspnea, unspecified (ICD-10) Osteoarthritis ?M19.90 - Unspecified osteoarthritis, unspecified site (ICD-10) Anemia ?D64.9 - Anemia, unspecified (ICD-10) Anxiety ?F41.9 - Anxiety disorder, unspecified (ICD-10) Stroke ?I63.9 - Cerebral infarction, unspecified (ICD-10) Acid reflux ?K21.9 - Gastro-esophageal reflux disease without esophagitis (ICD-10) Hypothyroid ?E03.9 - Hypothyroidism, unspecified (ICD-10) COPD (chronic obstructive pulmonary disease) ?J44.9 - Chronic obstructive pulmonary disease, unspecified (ICD-10) Asthma ?J45.909 - Unspecified asthma, uncomplicated (ICD-10) CHF (congestive heart failure) ?I50.9 - Heart failure, unspecified (ICD-10) Irregular heart beat ?I49.9 - Cardiac arrhythmia, unspecified (ICD-10) HTN (hypertension) ?I10 - Essential (primary) hypertension (ICD-10) Heart attack ?I21.9 - Acute myocardial infarction, unspecified (ICD-10) Lumbar spondylosis ?M47.816 - Spondylosis without myelopathy or radiculopathy, lumbar region (ICD-10) Surgical History H/O cervical spinal arthrodesis ?Z98.1 - Arthrodesis status (ICD-10) Port-A-Cath in place ?Z95.828 - Presence of other vascular implants and grafts (ICD-10) History of lumbar fusion ?Z98.1 - Arthrodesis status (ICD-10) H/O hysterectomy with oophorectomy H/O gastric bypass ?Z98.84 - Bariatric surgery status (ICD-10) History of hernia repair ?Z98.890 - Other specified postprocedural states (ICD-10) ?Z87.19 - Personal history of other diseases of the digestive system (ICD-10) History of rotator cuff surgery ?Z98.890 - Other specified postprocedural states (ICD-10) History of right knee joint replacement ?Z96.651 - Presence of right artificial knee joint (ICD-10) History of appendectomy ?Z90.49 - Acquired absence of other specified parts of digestive tract (ICD-10) Hx of cholecystectomy ?Z90.49 - Acquired absence of other specified parts of digestive tract (ICD-10) Family History Father Family history of CHF (congestive heart failure) Family history of diabetes mellitus Family history of hypertension Family history of myocardial infarction Family history of stroke Mother Family history of CHF (congestive heart failure) Family history of COPD (chronic obstructive pulmonary disease) Family history of diabetes mellitus Family history of hypertension Family history of myocardial infarction Family history of stroke Social History Within the past year, how often did you have a drink containing alcohol: never Within the past year, how often did you have six or more drinks on one occasion: never Score interpretation: A score less than 3 is consistent with normal alcohol consumption. 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 Highest level of school completed/degree received: some college, no degree Are you now , , , , never or living with a partner: In a typical week, how many times do you talk on the telephone with family, friends, or neighbors: 3 or more times per week How often do you get together with friends or relatives: twice per week How often do you attend muslim or rastafarian services: 4 or more times per year Do you belong to any clubs or organizations such as muslim groups unions, fraternal or athletic groups, or school groups: no Total score: 3 Score interpretation: A score of greater than or equal to 2 indicates the lowest level of social isolation. Little interest or pleasure in doing things: not at all Feeling down, depressed, or hopeless: several days Feel stressed/tense/nervous/anxious/difficulty sleeping: to some extent Life stressors: recent of family or friend Do you think of yourself as: straight/heterosexual Gender Identity: female Meds Home Medications and Allergies Home Medications ?Medication ?Instructions ?Recorded ?Confirmed ?Type alprazolam 0.5 mg tablet 0.5 mg PO BID PRN anxiety 12/08/22 04/09/24 History amitriptyline 150 mg tablet 300 mg PO BEDTIME 12/08/22 04/09/24 History calcium acetate(phosphat bind) 667 667 mg PO BIDWM 12/08/22 04/09/24 History mg capsule levothyroxine 100 mcg tablet 100 mcg PO DAILY 12/08/22 04/09/24 History linaclotide 290 mcg capsule 290 mcg PO DAILY 12/08/22 04/09/24 History (Linzess) oxycodone-acetaminophen 5 mg-325 2 tab PO Q6H PRN pain 12/08/22 04/09/24 History mg tablet primidone 50 mg tablet 150 mg PO BEDTIME 12/08/22 04/09/24 History tizanidine 4 mg tablet (Zanaflex) 4 mg PO Q6H PRN muscle spasticity 12/08/22 04/09/24 History aripiprazole 2 mg tablet (Abilify) 2 mg PO DAILY 01/23/23 04/09/24 History bumetanide 1 mg tablet 6 mg PO DAILY SWELLING 01/23/23 04/09/24 History butorphanol 10 mg/mL nasal spray 1 spray intranasal .QD PRN pain 02/03/23 04/09/24 History azelastine 0.05 % eye drops 1 drp ophthalmic (eye) DAILY 09/29/23 04/09/24 History desvenlafaxine succinate 50 mg 50 mg PO DAILY 09/29/23 04/09/24 History tablet,extended release 24 hr diclofenac sodium 1 % topical gel 2 g topical .QD PRN 09/29/23 04/09/24 History PAIN/INFLAMMATION doxepin 10 mg capsule 10 mg PO BID 09/29/23 04/09/24 History escitalopram oxalate 20 mg tablet 20 mg PO DAILY 09/29/23 04/09/24 History fentanyl 100 mcg/hr transdermal 1 patch transdermal Q72H 10/12/23 04/09/24 History patch pramipexole 1 mg tablet 1 mg PO .qd 10/23/23 04/09/24 History sacubitril 49 mg-valsartan 51 mg 1 tab PO BID 01/04/24 04/09/24 History tablet (Entresto) spironolactone 50 mg tablet 50 mg PO Q12H 01/04/24 04/09/24 History apixaban 5 mg tablet (Eliquis) 5 mg PO BID 03/29/24 04/09/24 History atorvastatin 40 mg tablet 40 mg PO .HS 03/29/24 04/09/24 History zwfiysmsju-gqmmftbxneboe-ajazhshn cap 03/29/24 History 50 mg-300 mg-40 mg capsule fluticasone furoate 100 1 inh inhalation Q24H 03/29/24 04/09/24 History mcg-vilanterol 25 mcg/dose inhalation powder (Breo Ellipta) sevelamer carbonate 800 mg tablet 800 mg PO TID 03/29/24 04/09/24 History Allergies Allergy/AdvReac Type Severity Reaction Status Date / Time povidone-iodine (From Allergy Intermediate Rash Verified 04/09/24 09:23 Betadine) amoxicillin (From Augmentin) Allergy Mild Vomiting Verified 04/09/24 09:23 clavulanic acid (From Allergy Mild Vomiting Verified 04/09/24 09:23 Augmentin) Sulfa (Sulfonamide Allergy Mild Vomiting Verified 04/09/24 09:23 Antibiotics) ciprofloxacin (From Cipro) Allergy Unknown Vomiting Verified 04/09/24 09:23 Exam Constitutional Documenting provider has reviewed patient's vital signs: yes Common normals: no apparent distress, oriented x3, healthy appearing, alert and well nourished General appearance: cooperative HENMT Common normals: normocephalic, hearing grossly normal bilaterally and moist oral mucous membranes Head and scalp: normocephalic Eye Common normals: PERRL Pupil: PERRL Neck & C-Spine Common normals: full ROM General: normal visual inspection Chest Common normals: inspection of chest normal Respiratory Common normals: normal respiratory effort, no retractions and no use of accessory muscles Back & Pelvis Lumbar spine/lower back: pain with ROM and straight leg raise negative bilaterally Extremity General: edema Left lower extremity: knee joint Other: moderate edema, mild crepitus, pain with medial and lateral stress testing, no instability noted Neuro Common normals: oriented x3, CN's II-XII intact bilaterally, moves all extremities, no focal motor deficits, no sensory deficits noted and deep tendon reflexes 2+ bilaterally Sensorium/orientation: alert Motor exam: strength 5/5 throughout and no movement abnormalities noted Psych Common normals: mental status grossly normal, thought process normal, cooperative, affect normal, speech normal and activity/motor behavior normal Speech: normal speech Thought process: normal thought process Results Additional Findings Additional findings: If on a controlled substance or opioids, I have checked an [place] report on this patient and there are no aberrancies noted in the prescribing history.??If on a controlled substance or opioid a drug screen was completed and reviewed within the last year, and if there has not been a drug screen completed we ordered one today to monitor higher risk, state monitored pain medication use. As part of providing excellent, safe, comprehensive care, the following was completed at our patient's visit: 1. A medication reconciliation and review to ensure accurate knowledge of current/active medications, including asking our patients to inform us about any swyz-wsp-owekkfa medications or herbal remedies/nutritional supplements/alternative remedies. 2. A review to specifically ensure our patients have had annual screening for screening for depression, screening for tobacco use, and screening for unhealthy alcohol use. For concerning screenings had a discussion with the patient, provided patient education, and recommended follow-up with primary care provider when appropriate. If patient noted with a risk of falling, they received education on strength, gait, and balance training to prevent future risk of falling. Assessment and Plan Assessment and Plan (1) Osteoarthritis of left knee: (2) Lumbar radiculopathy: (3) Lumbar spondylosis: Plan left knee pain well controlled continue f/u with PCP, nephrology, vascular/cardiology continue medications through PCP f/u PRN
== END 2024-04-17 13:05 | disposition home or self-care (01) ==
LOC: PM 13:04
PROVIDERS: PCP Family Medicine; Visit Provider Nurse Practitioner
DX: M17.12 Unilateral primary osteoarthritis, left knee (principal); M54.16 Radiculopathy, lumbar region; M47.816 Spondylosis without myelopathy or radiculopathy, lumbar region
CPT/HCPCS: G0463

== ENCOUNTER 2024-04-24 07:35 | Outpatient (RCR) | payer MEDICARE, MEDICAID, SELFPAY ==
[2024-03-27] MEDS: HEPARIN SODIUM (PORCINE) PF LOCK FLUSH 500 UNIT/5 ML SYRINGE IV (10:30)
[2024-03-27 10:50] LABS: Basophils Percent Auto 0.3 % (0.2-2.0); Eosinophils Absolute Auto 0.2 10^3/uL (0.0-0.7); Eosinophils Percent Auto 2.5 % (0.9-7.0); Hematocrit 30.2 % (36.0-48.0); Hemoglobin 9.3 g/dL (12.0-16.0); Immature Granulocytes Abs Auto 0.02 10^3/uL (0.00-0.03); Immature Granulocytes Pct Auto 0.3 % (0.0-0.5); Lymphocytes Absolute Auto 0.9 10^3/uL (1.2-3.8); Lymphocytes Percent Auto 12.1 % (20.5-60.0); Mean Corpuscular HGB Conc 30.8 g/dL (29.9-35.2); Mean Corpuscular Hemoglobin 28.7 pg (26.7-34.0); Mean Corpuscular Volume 93.2 fL (81.0-99.0); Mean Platelet Volume 9.6 fL (9.5-13.5); Monocytes Absolute Auto 0.6 10^3/uL (0.3-0.8); Monocytes Percent Auto 7.7 % (1.7-12.0); Neutrophils Absolute Auto 5.5 10^3/uL (1.4-6.5); Neutrophils Percent Auto 77.1 % (43.0-75.0); Platelet Count 263 10^3/uL (150-450); Red Blood Count 3.24 10^6/uL (4.20-5.40); Red Cell Distribution Width 14.7 % (11.0-15.0); White Blood Count 7.1 10^3/uL (4.0-11.0)
[2024-03-27 12:57] LABS: Alanine Aminotransferase 27 U/L (14-59); Albumin Level 3.3 g/dL (3.4-5.0); Alkaline Phosphatase 291 U/L (46-116); Anion Gap 14.3; Aspartate Amino Transferase 34 U/L (15-37); BUN Creatinine Ratio 32.9; Bilirubin Total 0.2 mg/dL (0.2-1.0); Calcium 8.8 mg/dL (8.5-10.1); Chloride 98 mmol/L (98-107); Estimated GFR (African America 36 (>=60 mL/min/1.73m^2); Estimated GFR (Non-African Ame 30 (>=60 mL/min/1.73m^2); Globulin 3.4 g/dL; Glucose 89 mg/dL (74-106); Potassium 4.3 mmol/L (3.5-5.1); Sodium 132 mmol/L (136-145); Total Protein 6.7 g/dL (6.4-8.2)
--- NOTE | 2024-03-28 11:06 | PC.NURSE ---
1015: Pt. to [facility] amb. for blood draw from port-a-cath. Seated in recliner. Using sterile technique, right ant. chest port accessed per this RN without difficulty. Flushes easily with good blood return. Blood obtained for ordered labs. Port de-accessed. Trace bleeding to site. Covered with bandaid. Pt. tolerated without difficulty. 1030: Pt. d/c'd amb to home.
[2024-04-05 09:45] VITALS: BP 109/71; PULSE 73; TEMP 36.6; O2SAT 96
[2024-04-16 11:06] LABS: Basophils Percent Auto 0.3 % (0.2-2.0); Eosinophils Absolute Auto 0.2 10^3/uL (0.0-0.7); Hematocrit 30.4 % (36.0-48.0); Hemoglobin 9.3 g/dL (12.0-16.0); Immature Granulocytes Abs Auto 0.05 10^3/uL (0.00-0.03); Immature Granulocytes Pct Auto 0.6 % (0.0-0.5); Lymphocytes Absolute Auto 0.9 10^3/uL (1.2-3.8); Lymphocytes Percent Auto 11.3 % (20.5-60.0); Mean Corpuscular HGB Conc 30.6 g/dL (29.9-35.2); Mean Corpuscular Hemoglobin 28.4 pg (26.7-34.0); Mean Corpuscular Volume 92.7 fL (81.0-99.0); Mean Platelet Volume 8.9 fL (9.5-13.5); Monocytes Absolute Auto 0.6 10^3/uL (0.3-0.8); Monocytes Percent Auto 7.4 % (1.7-12.0); Neutrophils Percent Auto 77.4 % (43.0-75.0); Platelet Count 316 10^3/uL (150-450); Red Blood Count 3.28 10^6/uL (4.20-5.40); White Blood Count 7.7 10^3/uL (4.0-11.0)
[2024-04-16 11:21] LABS: Alanine Aminotransferase 19 U/L (14-59); Albumin Globulin Ratio 0.8; Albumin Level 3.1 g/dL (3.4-5.0); Alkaline Phosphatase 271 U/L (46-116); Anion Gap 13.1; Aspartate Amino Transferase 23 U/L (15-37); Bilirubin Total 0.2 mg/dL (0.2-1.0); Calcium 8.6 mg/dL (8.5-10.1); Carbon Dioxide 26.4 mmol/L (21.0-32.0); Chloride 103 mmol/L (98-107); Estimated GFR (African America 43 (>=60 mL/min/1.73m^2); Estimated GFR (Non-African Ame 35 (>=60 mL/min/1.73m^2); Globulin 3.7 g/dL; Glucose 89 mg/dL (74-106); Potassium 4.5 mmol/L (3.5-5.1); Sodium 138 mmol/L (136-145); Total Protein 6.8 g/dL (6.4-8.2)
[2024-04-16] MEDS: EPOETIN ALFA-EPBX 20,000 UNIT/ML VIAL 20000 UNIT SUBQ (11:50)
== END 2024-04-25 23:59 | disposition home or self-care (01) ==
LOC: INF 07:35
PROVIDERS: PCP Family Medicine; Visit Provider Family Medicine
DX: M17.12 Unilateral primary osteoarthritis, left knee (principal); M47.26 Other spondylosis with radiculopathy, lumbar region; I10 Essential (primary) hypertension; E87.1 Hypo-osmolality and hyponatremia; D63.1 Anemia in chronic kidney disease; D50.9 Iron deficiency anemia, unspecified; N18.32 Chronic kidney disease, stage 3b; K90.9 Intestinal malabsorption, unspecified
CPT/HCPCS: 36415; 36591; 80053; 83930; 85025; 96372; G0463; J1642; Q5106

== ENCOUNTER 2024-05-14 07:39 | Outpatient (RCR) | payer MEDICARE, MEDICAID, SELFPAY ==
--- NOTE | 2024-04-26 12:40 | PC.NURSE ---
1100 arrival ambulatory, r chest port intact, accessed using sterile technique with #19 ga james needle, flushed port, excellent blood return, lab drawn, port flushed with NS and hep lock flush. deaccessed, tolerated well, releaased ambulatroy at 1135
[2024-04-26 13:37] LABS: Percent Iron Saturation 13.3 %
--- NOTE | 2024-05-03 14:34 | PC.NURSE ---
Pt here for port draw. Port accessed and flushed with ease. No blood return obtained after several flush attempts and repositioning of pt. Declined use of cathflo, requested peripheral lab draw. Port flushed with NS followed by heplock, then de-accessed. Pt d/c'd in stable condition.
[2024-05-07 11:21] VITALS: BP 135/80; PULSE 73; TEMP 36.4; O2SAT 99
[2024-05-07] MEDS: FERUMOXYTOL 510 MG in 0.9 % SODIUM CHLORIDE 100 ML 234 MG IV (12:07)
[2024-05-07] MEDS: HEPARIN SODIUM (PORCINE) PF LOCK FLUSH 500 UNIT/5 ML SYRINGE IV (12:49)
[2024-05-14] MEDS: FERUMOXYTOL 510 MG in 0.9 % SODIUM CHLORIDE 100 ML 234 MG IV (11:20)
[2024-05-14] MEDS: HEPARIN SODIUM (PORCINE) PF LOCK FLUSH 500 UNIT/5 ML SYRINGE IV (11:50)
== END 2024-05-22 12:56 | disposition home or self-care (01) ==
LOC: HEMC 07:39
PROVIDERS: PCP Internal Medicine Hematology & Oncology; Visit Provider Internal Medicine Hematology & Oncology
DX: D50.9 Iron deficiency anemia, unspecified (principal); K90.9 Intestinal malabsorption, unspecified; D63.1 Anemia in chronic kidney disease; N18.32 Chronic kidney disease, stage 3b
CPT/HCPCS: 36415; 36591; 82728; 83540; 83550; 96365; J1642; Q0138

== ENCOUNTER 2024-05-14 12:02 | Outpatient (OUT) | payer MEDICARE, MEDICAID, SELFPAY ==
[2024-05-14 12:18] LABS: Basophils Percent Auto 0.3 % (0.2-2.0); Eosinophils Absolute Auto 0.2 10^3/uL (0.0-0.7); Eosinophils Percent Auto 3.7 % (0.9-7.0); Hematocrit 30.9 % (36.0-48.0); Hemoglobin 9.6 g/dL (12.0-16.0); Immature Granulocytes Abs Auto 0.02 10^3/uL (0.00-0.03); Immature Granulocytes Pct Auto 0.3 % (0.0-0.5); Lymphocytes Absolute Auto 0.9 10^3/uL (1.2-3.8); Lymphocytes Percent Auto 13.1 % (20.5-60.0); Mean Corpuscular HGB Conc 31.1 g/dL (29.9-35.2); Mean Corpuscular Hemoglobin 28.8 pg (26.7-34.0); Mean Corpuscular Volume 92.8 fL (81.0-99.0); Mean Platelet Volume 9.1 fL (9.5-13.5); Monocytes Absolute Auto 0.6 10^3/uL (0.3-0.8); Monocytes Percent Auto 8.8 % (1.7-12.0); Neutrophils Absolute Auto 4.8 10^3/uL (1.4-6.5); Neutrophils Percent Auto 73.8 % (43.0-75.0); Platelet Count 338 10^3/uL (150-450); Red Blood Count 3.33 10^6/uL (4.20-5.40); Red Cell Distribution Width 15.6 % (11.0-15.0); White Blood Count 6.5 10^3/uL (4.0-11.0)
[2024-05-14 12:57] LABS: Alanine Aminotransferase 18 U/L (14-59); Albumin Globulin Ratio 0.9; Albumin Level 3.2 g/dL (3.4-5.0); Alkaline Phosphatase 235 U/L (46-116); Anion Gap 14.7; Aspartate Amino Transferase 26 U/L (15-37); BUN Creatinine Ratio 30.5; Bilirubin Total 0.2 mg/dL (0.2-1.0); Calcium 8.5 mg/dL (8.5-10.1); Carbon Dioxide 23.7 mmol/L (21.0-32.0); Chloride 100 mmol/L (98-107); Estimated GFR (African America 36 (>=60 mL/min/1.73m^2); Estimated GFR (Non-African Ame 30 (>=60 mL/min/1.73m^2); Globulin 3.7 g/dL; Glucose 81 mg/dL (74-106); Potassium 4.4 mmol/L (3.5-5.1); Sodium 134 mmol/L (136-145); Total Protein 6.9 g/dL (6.4-8.2)
== END 2024-05-14 12:03 | disposition home or self-care (01) ==
LOC: LAB 12:03
PROVIDERS: PCP Internal Medicine Hematology & Oncology; Visit Provider Family Medicine
DX: I10 Essential (primary) hypertension (principal); D64.9 Anemia, unspecified; E87.1 Hypo-osmolality and hyponatremia
CPT/HCPCS: 36415; 80053; 83930; 85025

== ENCOUNTER 2024-05-22 11:30 | Outpatient (RCR) | payer MEDICARE, MEDICAID, SELFPAY ==
[2024-04-26 12:43] VITALS: BP 110/73; PULSE 78; TEMP 36.4; O2SAT 96
[2024-04-26 12:57] LABS: Basophils Percent Auto 0.3 % (0.2-2.0); Eosinophils Absolute Auto 0.2 10^3/uL (0.0-0.7); Eosinophils Percent Auto 3.4 % (0.9-7.0); Hematocrit 26.4 % (36.0-48.0); Hemoglobin 8.1 g/dL (12.0-16.0); Immature Granulocytes Abs Auto 0.04 10^3/uL (0.00-0.03); Immature Granulocytes Pct Auto 0.6 % (0.0-0.5); Lymphocytes Absolute Auto 0.8 10^3/uL (1.2-3.8); Lymphocytes Percent Auto 12.4 % (20.5-60.0); Mean Corpuscular HGB Conc 30.7 g/dL (29.9-35.2); Mean Corpuscular Hemoglobin 28.1 pg (26.7-34.0); Mean Corpuscular Volume 91.7 fL (81.0-99.0); Mean Platelet Volume 9.7 fL (9.5-13.5); Monocytes Absolute Auto 0.7 10^3/uL (0.3-0.8); Monocytes Percent Auto 10.2 % (1.7-12.0); Neutrophils Percent Auto 73.1 % (43.0-75.0); Platelet Count 236 10^3/uL (150-450); Red Blood Count 2.88 10^6/uL (4.20-5.40); Red Cell Distribution Width 14.7 % (11.0-15.0); White Blood Count 6.8 10^3/uL (4.0-11.0)
[2024-04-26 13:41] LABS: Alanine Aminotransferase 20 U/L (14-59); Albumin Globulin Ratio 0.9; Albumin Level 3.2 g/dL (3.4-5.0); Alkaline Phosphatase 239 U/L (46-116); Anion Gap 15.5; Aspartate Amino Transferase 25 U/L (15-37); BUN Creatinine Ratio 28.7; Bilirubin Total 0.4 mg/dL (0.2-1.0); Calcium 8.2 mg/dL (8.5-10.1); Chloride 97 mmol/L (98-107); Estimated GFR (African America 24 (>=60 mL/min/1.73m^2); Estimated GFR (Non-African Ame 20 (>=60 mL/min/1.73m^2); Globulin 3.5 g/dL; Glucose 96 mg/dL (74-106); Potassium 3.5 mmol/L (3.5-5.1); Sodium 134 mmol/L (136-145); Total Protein 6.7 g/dL (6.4-8.2)
[2024-04-26] MEDS: HEPARIN SODIUM (PORCINE) PF LOCK FLUSH 500 UNIT/5 ML SYRINGE IV (15:25)
[2024-05-03 08:08] VITALS: BP 112/73; PULSE 102; TEMP 36.6; O2SAT 98
[2024-05-03 13:39] VITALS: BP 122/72; PULSE 83; TEMP 36.9
[2024-05-03] MEDS: HEPARIN SODIUM (PORCINE) PF LOCK FLUSH 500 UNIT/5 ML SYRINGE IV (14:30)
[2024-05-03 15:06] LABS: Basophils Percent Auto 0.4 % (0.2-2.0); Eosinophils Absolute Auto 0.3 10^3/uL (0.0-0.7); Hematocrit 28.6 % (36.0-48.0); Hemoglobin 8.7 g/dL (12.0-16.0); Immature Granulocytes Abs Auto 0.04 10^3/uL (0.00-0.03); Immature Granulocytes Pct Auto 0.5 % (0.0-0.5); Lymphocytes Absolute Auto 0.8 10^3/uL (1.2-3.8); Lymphocytes Percent Auto 10.9 % (20.5-60.0); Mean Corpuscular HGB Conc 30.4 g/dL (29.9-35.2); Mean Corpuscular Hemoglobin 27.5 pg (26.7-34.0); Mean Corpuscular Volume 90.5 fL (81.0-99.0); Mean Platelet Volume 8.9 fL (9.5-13.5); Monocytes Absolute Auto 0.6 10^3/uL (0.3-0.8); Monocytes Percent Auto 7.6 % (1.7-12.0); Neutrophils Absolute Auto 5.7 10^3/uL (1.4-6.5); Neutrophils Percent Auto 76.6 % (43.0-75.0); Platelet Count 296 10^3/uL (150-450); Red Blood Count 3.16 10^6/uL (4.20-5.40); Red Cell Distribution Width 14.5 % (11.0-15.0); White Blood Count 7.5 10^3/uL (4.0-11.0)
[2024-05-03 15:07] LABS: Alanine Aminotransferase 18 U/L (14-59); Albumin Globulin Ratio 0.8; Alkaline Phosphatase 240 U/L (46-116); Anion Gap 15.2; Aspartate Amino Transferase 26 U/L (15-37); BUN Creatinine Ratio 28.9; Bilirubin Total 0.2 mg/dL (0.2-1.0); Calcium 7.9 mg/dL (8.5-10.1); Carbon Dioxide 26.4 mmol/L (21.0-32.0); Chloride 98 mmol/L (98-107); Estimated GFR (African America 30 (>=60 mL/min/1.73m^2); Estimated GFR (Non-African Ame 25 (>=60 mL/min/1.73m^2); Globulin 3.8 g/dL; Glucose 82 mg/dL (74-106); Potassium 3.6 mmol/L (3.5-5.1); Sodium 136 mmol/L (136-145); Total Protein 6.8 g/dL (6.4-8.2)
[2024-05-14 10:55] VITALS: BP 139/79; BP 139/81; PULSE 81; TEMP 36.1; O2SAT 97
[2024-05-22 11:13] VITALS: BP 145/79; PULSE 76; TEMP 36.3; O2SAT 96
[2024-05-22] MEDS: HEPARIN SODIUM (PORCINE) PF LOCK FLUSH 500 UNIT/5 ML SYRINGE IV (11:26)
[2024-05-22 11:30] LABS: Basophils Percent Auto 0.4 % (0.2-2.0); Eosinophils Absolute Auto 0.3 10^3/uL (0.0-0.7); Eosinophils Percent Auto 5.1 % (0.9-7.0); Hematocrit 31.4 % (36.0-48.0); Hemoglobin 9.5 g/dL (12.0-16.0); Immature Granulocytes Abs Auto 0.02 10^3/uL (0.00-0.03); Immature Granulocytes Pct Auto 0.4 % (0.0-0.5); Lymphocytes Absolute Auto 0.9 10^3/uL (1.2-3.8); Lymphocytes Percent Auto 16.2 % (20.5-60.0); Mean Corpuscular HGB Conc 30.3 g/dL (29.9-35.2); Mean Corpuscular Hemoglobin 28.5 pg (26.7-34.0); Mean Corpuscular Volume 94.3 fL (81.0-99.0); Mean Platelet Volume 8.8 fL (9.5-13.5); Monocytes Absolute Auto 0.5 10^3/uL (0.3-0.8); Monocytes Percent Auto 9.7 % (1.7-12.0); Neutrophils Absolute Auto 3.8 10^3/uL (1.4-6.5); Neutrophils Percent Auto 68.2 % (43.0-75.0); Platelet Count 220 10^3/uL (150-450); Red Blood Count 3.33 10^6/uL (4.20-5.40); Red Cell Distribution Width 16.4 % (11.0-15.0); White Blood Count 5.5 10^3/uL (4.0-11.0)
[2024-05-22 11:47] LABS: Alanine Aminotransferase 26 U/L (14-59); Albumin Globulin Ratio 0.9; Albumin Level 3.2 g/dL (3.4-5.0); Alkaline Phosphatase 240 U/L (46-116); Anion Gap 14.7; Aspartate Amino Transferase 26 U/L (15-37); BUN Creatinine Ratio 27.9; Bilirubin Total 0.2 mg/dL (0.2-1.0); Calcium 8.1 mg/dL (8.5-10.1); Carbon Dioxide 22.8 mmol/L (21.0-32.0); Chloride 102 mmol/L (98-107); Estimated GFR (African America 36 (>=60 mL/min/1.73m^2); Estimated GFR (Non-African Ame 30 (>=60 mL/min/1.73m^2); Globulin 3.4 g/dL; Glucose 83 mg/dL (74-106); Potassium 4.5 mmol/L (3.5-5.1); Sodium 135 mmol/L (136-145); Total Protein 6.6 g/dL (6.4-8.2)
== END 2024-05-22 12:56 | disposition home or self-care (01) ==
LOC: INF 11:30
PROVIDERS: PCP Family Medicine; Visit Provider Family Medicine
DX: D50.9 Iron deficiency anemia, unspecified (principal); K90.9 Intestinal malabsorption, unspecified; D63.1 Anemia in chronic kidney disease; N18.32 Chronic kidney disease, stage 3b; E87.1 Hypo-osmolality and hyponatremia; I12.9 Hypertensive chronic kidney disease with stage 1 through stage 4 chronic kidney disease, or unspecified chronic kidney disease; D64.9 Anemia, unspecified
CPT/HCPCS: 36415; 36591; 80053; 82728; 83540; 83550; 83930; 85025; J1642; Q0138

== ENCOUNTER 2024-05-28 07:44 | Outpatient (RCR) | payer MEDICARE, MEDICAID, SELFPAY ==
[2024-05-28 11:00] VITALS: BP 114/79; PULSE 79; TEMP 36.6; O2SAT 98
[2024-05-28 11:35] LABS: Basophils Percent Auto 0.3 % (0.2-2.0); Eosinophils Absolute Auto 0.2 10^3/uL (0.0-0.7); Eosinophils Percent Auto 3.5 % (0.9-7.0); Hematocrit 31.6 % (36.0-48.0); Hemoglobin 9.7 g/dL (12.0-16.0); Immature Granulocytes Abs Auto 0.03 10^3/uL (0.00-0.03); Immature Granulocytes Pct Auto 0.4 % (0.0-0.5); Lymphocytes Absolute Auto 0.7 10^3/uL (1.2-3.8); Lymphocytes Percent Auto 9.6 % (20.5-60.0); Mean Corpuscular HGB Conc 30.7 g/dL (29.9-35.2); Mean Corpuscular Hemoglobin 28.7 pg (26.7-34.0); Mean Corpuscular Volume 93.5 fL (81.0-99.0); Mean Platelet Volume 9.4 fL (9.5-13.5); Monocytes Absolute Auto 0.6 10^3/uL (0.3-0.8); Monocytes Percent Auto 9.1 % (1.7-12.0); Neutrophils Absolute Auto 5.3 10^3/uL (1.4-6.5); Neutrophils Percent Auto 77.1 % (43.0-75.0); Platelet Count 250 10^3/uL (150-450); Red Blood Count 3.38 10^6/uL (4.20-5.40); Red Cell Distribution Width 16.5 % (11.0-15.0); White Blood Count 6.8 10^3/uL (4.0-11.0)
[2024-05-28 11:57] LABS: Alanine Aminotransferase 26 U/L (14-59); Albumin Level 3.3 g/dL (3.4-5.0); Alkaline Phosphatase 260 U/L (46-116); Anion Gap 14.1; Aspartate Amino Transferase 22 U/L (15-37); BUN Creatinine Ratio 32.8; Bilirubin Total 0.2 mg/dL (0.2-1.0); Calcium 8.6 mg/dL (8.5-10.1); Carbon Dioxide 25.3 mmol/L (21.0-32.0); Chloride 100 mmol/L (98-107); Estimated GFR (African America 31 (>=60 mL/min/1.73m^2); Estimated GFR (Non-African Ame 26 (>=60 mL/min/1.73m^2); Glucose 100 mg/dL (74-106); Potassium 4.4 mmol/L (3.5-5.1); Sodium 135 mmol/L (136-145); Total Protein 7.2 g/dL (6.4-8.2)
[2024-05-28 11:58] LABS: Albumin Globulin Ratio 0.8; Globulin 3.9 g/dL
--- NOTE | 2024-05-28 12:57 | PC.NURSE ---
1100: Pt. to [facility] amb for weekly blood draw. Seated in chair. VSS. Using sterile technique, right ant. chest port accessed using #20 gauge Stovall needle. Flushes easily with good blood return. Site without s&s of infection or infiltration. Blood obtained for ordered labs. Port flushed with saline and Heparin flush. Port de-accessed. Trace bleeding to site, covered with sterile 4x4. Pt. tolerated all without c/o. 1118: Pt. d/c'd amb. to home.
[2024-06-12 11:34] LABS: Basophils Percent Auto 0.6 % (0.2-2.0); Eosinophils Absolute Auto 0.3 10^3/uL (0.0-0.7); Eosinophils Percent Auto 3.9 % (0.9-7.0); Hematocrit 32.8 % (36.0-48.0); Immature Granulocytes Abs Auto 0.03 10^3/uL (0.00-0.03); Immature Granulocytes Pct Auto 0.5 % (0.0-0.5); Lymphocytes Absolute Auto 1.6 10^3/uL (1.2-3.8); Lymphocytes Percent Auto 23.8 % (20.5-60.0); Mean Corpuscular HGB Conc 30.5 g/dL (29.9-35.2); Mean Corpuscular Hemoglobin 28.4 pg (26.7-34.0); Mean Corpuscular Volume 93.2 fL (81.0-99.0); Mean Platelet Volume 8.8 fL (9.5-13.5); Monocytes Absolute Auto 0.5 10^3/uL (0.3-0.8); Neutrophils Absolute Auto 4.2 10^3/uL (1.4-6.5); Neutrophils Percent Auto 63.2 % (43.0-75.0); Platelet Count 264 10^3/uL (150-450); Red Blood Count 3.52 10^6/uL (4.20-5.40); Red Cell Distribution Width 17.1 % (11.0-15.0); White Blood Count 6.6 10^3/uL (4.0-11.0)
[2024-06-12 12:06] LABS: Alanine Aminotransferase 23 U/L (14-59); Albumin Globulin Ratio 0.9; Albumin Level 3.4 g/dL (3.4-5.0); Alkaline Phosphatase 259 U/L (46-116); Anion Gap 14.2; Aspartate Amino Transferase 21 U/L (15-37); BUN Creatinine Ratio 35.1; Bilirubin Total 0.2 mg/dL (0.2-1.0); Calcium 8.6 mg/dL (8.5-10.1); Carbon Dioxide 23.3 mmol/L (21.0-32.0); Chloride 103 mmol/L (98-107); Estimated GFR (African America 30 (>=60 mL/min/1.73m^2); Estimated GFR (Non-African Ame 25 (>=60 mL/min/1.73m^2); Globulin 3.9 g/dL; Glucose 86 mg/dL (74-106); Potassium 4.5 mmol/L (3.5-5.1); Sodium 136 mmol/L (136-145); Total Protein 7.3 g/dL (6.4-8.2)
== END 2024-06-25 23:59 | disposition home or self-care (01) ==
LOC: INF 07:44
PROVIDERS: PCP Internal Medicine Hematology & Oncology; Visit Provider Family Medicine
DX: I10 Essential (primary) hypertension (principal); D64.9 Anemia, unspecified; E87.1 Hypo-osmolality and hyponatremia
CPT/HCPCS: 36591; 80053; 83930; 85025

== ENCOUNTER 2024-07-18 10:15 | Outpatient (RCR) | payer MEDICARE, MEDICAID, SELFPAY ==
--- NOTE | 2024-07-02 13:09 | PC.NURSE ---
1300 Arrival ambulatory kyung denise for visit with Dr Rae and injection. relates to just getting over nausea, vomiting and diarrhea several days ago. Rt chest port accessed under sterile technique per Lisa RN, duatre blood return obtained, labs drawn and sent. Patient tolerated well.
--- NOTE | 2024-07-02 13:59 | PC.NURSE ---
labs returned injection not indicated. Port flushed with ns followed by hep lockflush, deaccessed, tolerated well. released ambulatory
== END 2024-07-26 23:59 | disposition home or self-care (01) ==
LOC: HEMC 10:15
PROVIDERS: PCP Internal Medicine Hematology & Oncology; Visit Provider Internal Medicine Hematology & Oncology
DX: E87.70 Fluid overload, unspecified (principal); I10 Essential (primary) hypertension; E87.1 Hypo-osmolality and hyponatremia
CPT/HCPCS: G0463

== ENCOUNTER 2024-07-18 10:34 | Outpatient (OUT) | payer MEDICARE, MEDICAID, SELFPAY ==
--- NOTE | 2024-07-18 10:55 | P.CN_ITS ---
Consult Note: HPI Data of Consult Patient: known to practice within the last 3 years Requesting Physician: Louann Jackson NP Primary Care Provider: Ny Rae MD Consult Narrative Reason for consult: f/u Narrative: Mabel Moser a pleasant 64 year old female presents for evaluation of chronic pain. historically has benefitted from lumbar ESIs and joint injections. over the last month she has noticed increased sciatic pain. previous caudal ROBSON provided >50% improvement greater than 3 months. Pt currently on percocet, fentanyl, voltaren gel through PCP. cannot take NSAIDs due to CKD. engages in HEP >6 weeks without improvement. pain today 8/10 sharp in bilateral low back hips and legs. reporting severe muscle cramping to BLE. cc:: CC: Louann Jackson NP Review of Systems ROS Status of ROS 10 or more systems reviewed and unremark able except as noted in history and below Musculoskeletal Reports: back pain and joint pain PFSH PFSH Medical History Hyperglycemia ?R73.9 - Hyperglycemia, unspecified (ICD-10) Recurrent UTI ?N39.0 - Urinary tract infection, site not specified (ICD-10) Atelectasis of both lungs ?J98.11 - Atelectasis (ICD-10) C2 cervical fracture ?S12.100A - Unspecified displaced fracture of second cervical vertebra, initial encounter for closed fracture (ICD-10) Shoulder pain, left ?M25.512 - Pain in left shoulder (ICD-10) Pulmonary embolism ?I26.99 - Other pulmonary embolism without acute cor pulmonale (ICD-10) DVT (deep venous thrombosis) ?I82.409 - Acute embolism and thrombosis of unspecified deep veins of unspecified lower extremity (ICD-10) Osteoporosis ?M81.0 - Age-related osteoporosis without current pathological fracture (ICD- 10) Seizures ?R56.9 - Unspecified convulsions (ICD-10) IBS (irritable bowel syndrome) ?K58.9 - Irritable bowel syndrome without diarrhea (ICD-10) D-dimer, elevated ?R79.89 - Other specified abnormal findings of blood chemistry (ICD-10) Chronic kidney insufficiency ?N18.9 - Chronic kidney disease, unspecified (ICD-10) Fluid overload ?E87.70 - Fluid overload, unspecified (ICD-10) Lymphedema ?I89.0 - Lymphedema, not elsewhere classified (ICD-10) Volume overload ?E87.70 - Fluid overload, unspecified (ICD-10) Anemia of chronic disease ?D63.8 - Anemia in other chronic diseases classified elsewhere (ICD-10) Chronic kidney disease ?N18.9 - Chronic kidney disease, unspecified (ICD-10) Acute kidney injury ?N17.9 - Acute kidney failure, unspecified (ICD-10) Edema of lower leg due to peripheral venous insufficiency ?I87.2 - Venous insufficiency (chronic) (peripheral) (ICD-10) ?R60.0 - Localized edema (ICD-10) Depression ?F32.A - Depression, unspecified (ICD-10) Gastroenteritis ?K52.9 - Noninfective gastroenteritis and colitis, unspecified (ICD-10) Migraine without aura and without status migrainosus, not intractable ?G43.009 - Migraine without aura, not intractable, without status migrainosus (ICD-10) Chronic heart failure with preserved ejection fraction (HFpEF) ?I50.32 - Chronic diastolic (congestive) heart failure (ICD-10) Chest pain ?R07.9 - Chest pain, unspecified (ICD-10) Dyspnea ?R06.00 - Dyspnea, unspecified (ICD-10) Osteoarthritis ?M19.90 - Unspecified osteoarthritis, unspecified site (ICD-10) Anemia ?D64.9 - Anemia, unspecified (ICD-10) Anxiety ?F41.9 - Anxiety disorder, unspecified (ICD-10) Stroke ?I63.9 - Cerebral infarction, unspecified (ICD-10) Acid reflux ?K21.9 - Gastro-esophageal reflux disease without esophagitis (ICD-10) Hypothyroid ?E03.9 - Hypothyroidism, unspecified (ICD-10) COPD (chronic obstructive pulmonary disease) ?J44.9 - Chronic obstructive pulmonary disease, unspecified (ICD-10) Asthma ?J45.909 - Unspecified asthma, uncomplicated (ICD-10) CHF (congestive heart failure) ?I50.9 - Heart failure, unspecified (ICD-10) Irregular heart beat ?I49.9 - Cardiac arrhythmia, unspecified (ICD-10) HTN (hypertension) ?I10 - Essential (primary) hypertension (ICD-10) Heart attack ?I21.9 - Acute myocardial infarction, unspecified (ICD-10) Lumbar spondylosis ?M47.816 - Spondylosis without myelopathy or radiculopathy, lumbar region (ICD-10) Surgical History H/O cervical spinal arthrodesis ?Z98.1 - Arthrodesis status (ICD-10) Port-A-Cath in place ?Z95.828 - Presence of other vascular implants and grafts (ICD-10) History of lumbar fusion ?Z98.1 - Arthrodesis status (ICD-10) H/O hysterectomy with oophorectomy H/O gastric bypass ?Z98.84 - Bariatric surgery status (ICD-10) History of hernia repair ?Z98.890 - Other specified postprocedural states (ICD-10) ?Z87.19 - Personal history of other diseases of the digestive system (ICD-10) History of rotator cuff surgery ?Z98.890 - Other specified postprocedural states (ICD-10) History of right knee joint replacement ?Z96.651 - Presence of right artificial knee joint (ICD-10) History of appendectomy ?Z90.49 - Acquired absence of other specified parts of digestive tract (ICD- 10) Hx of cholecystectomy ?Z90.49 - Acquired absence of other specified parts of digestive tract (ICD- 10) Family History Father Family history of CHF (congestive heart failure) Family history of diabetes mellitus Family history of hypertension Family history of myocardial infarction Family history of stroke Mother Family history of CHF (congestive heart failure) Family history of COPD (chronic obstructive pulmonary disease) Family history of diabetes mellitus Family history of hypertension Family history of myocardial infarction Family history of stroke Social History Within the past year, how often did you have a drink containing alcohol: never Within the past year, how often did you have six or more drinks on one occasion: never Score interpretation: A score less than 3 is consistent with normal alcohol consumption. 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 Highest level of school completed/degree received: some college, no degree Are you now , , , , never or living with a partner: In a typical week, how many times do you talk on the telephone with family, friends, or neighbors: 3 or more times per week How often do you get together with friends or relatives: twice per week How often do you attend confucianism or taoism services: 4 or more times per year Do you belong to any clubs or organizations such as confucianism groups unions, fraternal or athletic groups, or school groups: no Total score: 3 Score interpretation: A score of greater than or equal to 2 indicates the lowest level of social isolation. Little interest or pleasure in doing things: not at all Feeling down, depressed, or hopeless: several days Feel stressed/tense/nervous/anxious/difficulty sleeping: to some extent Life stressors: recent of family or friend Do you think of yourself as: straight/heterosexual Gender Identity: female Meds Home Medications and Allergies Home Medications ?Medication ?Instructions ?Recorded ?Confirmed ?Type alprazolam 0.5 mg tablet 0.5 mg PO BID PRN anxiety 12/08/22 04/09/24 History amitriptyline 150 mg tablet 300 mg PO BEDTIME 12/08/22 04/09/24 History calcium acetate(phosphat bind) 667 667 mg PO BIDWM 12/08/22 04/09/24 History mg capsule levothyroxine 100 mcg tablet 100 mcg PO DAILY 12/08/22 04/09/24 History linaclotide 290 mcg capsule 290 mcg PO DAILY 12/08/22 04/09/24 History (Linzess) oxycodone-acetaminophen 5 mg-325 2 tab PO Q6H PRN pain 12/08/22 04/09/24 History mg tablet primidone 50 mg tablet 150 mg PO BEDTIME 12/08/22 04/09/24 History tizanidine 4 mg tablet (Zanaflex) 4 mg PO Q6H PRN muscle spasticity 12/08/22 04/09/24 History aripiprazole 2 mg tablet (Abilify) 2 mg PO DAILY 01/23/23 04/09/24 History bumetanide 1 mg tablet 6 mg PO DAILY SWELLING 01/23/23 04/09/24 History butorphanol 10 mg/mL nasal spray 1 spray intranasal .QD PRN pain 02/03/23 04/09/24 History azelastine 0.05 % eye drops 1 drp ophthalmic (eye) DAILY 09/29/23 04/09/24 History desvenlafaxine succinate 50 mg 50 mg PO DAILY 09/29/23 04/09/24 History tablet,extended release 24 hr diclofenac sodium 1 % topical gel 2 g topical .QD PRN 09/29/23 04/09/24 History PAIN/INFLAMMATION doxepin 10 mg capsule 10 mg PO BID 09/29/23 04/09/24 History escitalopram oxalate 20 mg tablet 20 mg PO DAILY 09/29/23 04/09/24 History fentanyl 100 mcg/hr transdermal 1 patch transdermal Q72H 10/12/23 04/09/24 History patch pramipexole 1 mg tablet 1 mg PO .qd 10/23/23 04/09/24 History sacubitril 49 mg-valsartan 51 mg 1 tab PO BID 01/04/24 04/09/24 History tablet (Entresto) spironolactone 50 mg tablet 50 mg PO Q12H 01/04/24 04/09/24 History apixaban 5 mg tablet (Eliquis) 5 mg PO BID 03/29/24 04/09/24 History atorvastatin 40 mg tablet 40 mg PO .HS 03/29/24 04/09/24 History gjtvbnvcxg-jqvkzwsbhkgkt-jhxslxsk cap 03/29/24 History 50 mg-300 mg-40 mg capsule fluticasone furoate 100 1 inh inhalation Q24H 03/29/24 04/09/24 History mcg-vilanterol 25 mcg/dose inhalation powder (Breo Ellipta) sevelamer carbonate 800 mg tablet 800 mg PO TID 03/29/24 04/09/24 History Allergies Allergy/AdvReac Type Severity Reaction Status Date / Time povidone-iodine (From Allergy Intermediate Rash Verified 04/09/24 09:23 Betadine) amoxicillin (From Augmentin) Allergy Mild Vomiting Verified 04/09/24 09:23 clavulanic acid (From Allergy Mild Vomiting Verified 04/09/24 09:23 Augmentin) Sulfa (Sulfonamide Allergy Mild Vomiting Verified 04/09/24 09:23 Antibiotics) ciprofloxacin (From Cipro) Allergy Unknown Vomiting Verified 04/09/24 09:23 Exam Constitutional Documenting provider has reviewed patient's vital signs: yes Common normals: no apparent distress, oriented x3, healthy appearing, alert and well nourished General appearance: cooperative HENMT Common normals: normocephalic, hearing grossly normal bilaterally and moist oral mucous membranes Head and scalp: normocephalic Eye Common normals: PERRL Pupil: PERRL Neck & C-Spine Common normals: full ROM General: normal visual inspection Chest Common normals: inspection of chest normal Respiratory Common normals: normal respiratory effort, no retractions and no use of accessory muscles Back & Pelvis Lumbar spine/lower back: pain with ROM, lumbar spinal tenderness, straight leg raise positive right and straight leg raise positive left Other: L4-S1 radiculopathy to BLE strength 4/5 in BLE Extremity Other: significant edema to BLE, hx of lymphedema Neuro Common normals: oriented x3, CN's II-XII intact bilaterally, moves all extremities, no focal motor deficits, no sensory deficits noted and deep tendon reflexes 2+ bilaterally Sensorium/orientation: alert Motor exam: strength 5/5 throughout and no movement abnormalities noted Psych Common normals: mental status grossly normal, thought process normal, cooperative, affect normal, speech normal and activity/motor behavior normal Speech: normal speech Thought process: normal thought process Results Additional Findings Additional findings: If on a controlled substance or opioids, I have checked an [place] report on this patient and there are no aberrancies noted in the prescribing history.??If on a controlled substance or opioid a drug screen was completed and reviewed within the last year, and if there has not been a drug screen completed we ordered one today to monitor higher risk, state monitored pain medication use. As part of providing excellent, safe, comprehensive care, the following was completed at our patient's visit: 1. A medication reconciliation and review to ensure accurate knowledge of current/active medications, including asking our patients to inform us about any [id number] medications or herbal remedies/nutritional supplements/alternative remedies. 2. A review to specifically ensure our patients have had annual screening for screening for depression, screening for tobacco use, and screening for unhealthy alcohol use. For concerning screenings had a discussion with the patient, pro vided patient education, and recommended follow-up with primary care provider when appropriate. If patient noted with a risk of falling, they received education on strength, gait, and balance training to prevent future risk of falling. Portions of this note may have been carried over from the previous visit and updated as appropriate. Please note this office utilizes paper charting in addition to the electronic medical record. A list of current medications, vitals, and PMH is available there as the clinical staff outside of myself do not have access to [employer] charting during the clinic day operations. As part of providing quality comprehensive care the current medications, vitals, and PMH were reviewed in the paper chart. Assessment and Plan Assessment and Plan (1) Lumbar radiculopathy: Plan repeat caudal ROBSON under fluoroscopy, previous injection provided >50% improvement for at least 3 months continue HEP as tolerated f/u after injection
== END 2024-07-18 10:35 | disposition home or self-care (01) ==
LOC: PM 10:34
PROVIDERS: PCP Internal Medicine Hematology & Oncology; Visit Provider Nurse Practitioner
DX: M54.16 Radiculopathy, lumbar region (principal)
CPT/HCPCS: G0463

== ENCOUNTER 2024-07-18 11:14 | Outpatient (RCR) | payer MEDICARE, MEDICAID, SELFPAY ==
[2024-07-18 12:23] LABS: Phosphorus 5.3 mg/dL (2.6-4.7); Uric Acid 7.8 mg/dL (2.6-6.0)
[2024-07-18 13:13] LABS: Bilirubin Urine NEGATIVE (NEGATIVE); Blood Urine NEGATIVE (NEGATIVE); Clarity Urine CLEAR (CLEAR); Color Urine LT. YELLOW (YELLOW); Glucose Urine UA NEGATIVE (NEGATIVE); Ketones Urine NEGATIVE (NEGATIVE); Leukocyte Esterase Urine NEGATIVE (NEGATIVE); Nitrite Urine NEGATIVE (NEGATIVE); Protein Urine NEGATIVE (NEG/TRACE); Urobilinogen Urine 0.2 EU/dL (0.2-1.0); pH Urine 5.5 (5.0-9.0)
[2024-07-18 13:58] LABS: Creatinine Urine Random 19.27 mg/dL (20.00-300.00); Microalbumin Urine Random <1.3 mg/dL (<=30.0); Protein Creatinine Ratio Urine 0.39; Total Protein Urine Random 7.6 mg/dL (<=11.9)
[2024-07-19 11:08] LABS: PTH, Intact 266 pg/mL (15-65)
== END 2024-07-26 23:59 | disposition home or self-care (01) ==
LOC: INF 11:14
PROVIDERS: PCP Internal Medicine Hematology & Oncology; Visit Provider Internal Medicine Nephrology
DX: E87.70 Fluid overload, unspecified (principal); N18.32 Chronic kidney disease, stage 3b; E55.9 Vitamin D deficiency, unspecified; N25.81 Secondary hyperparathyroidism of renal origin; I50.9 Heart failure, unspecified; E87.5 Hyperkalemia
CPT/HCPCS: 81003; 82043; 82306; 82570; 83735; 83970; 84100; 84156; 84550

== ENCOUNTER 2024-07-26 07:37 | Outpatient (RCR) | payer MEDICARE, MEDICAID, SELFPAY ==
--- NOTE | 2024-07-02 13:11 | PC.NURSE ---
1300 Arrival ambulatory for lab draw per Dr. Godinez and injection per Dr. Rae. Alert oriented, rt chest port accessed under sterile technique per Laura Perez RN. excellent blood return noted. Tolerated well. labs sent to lab
[2024-07-02 13:38] LABS: Basophils Percent Auto 0.2 % (0.2-2.0); Eosinophils Absolute Auto 0.1 10^3/uL (0.0-0.7); Eosinophils Percent Auto 2.4 % (0.9-7.0); Hematocrit 33.2 % (36.0-48.0); Hemoglobin 10.4 g/dL (12.0-16.0); Immature Granulocytes Abs Auto 0.03 10^3/uL (0.00-0.03); Immature Granulocytes Pct Auto 0.7 % (0.0-0.5); Lymphocytes Absolute Auto 1.2 10^3/uL (1.2-3.8); Lymphocytes Percent Auto 28.8 % (20.5-60.0); Mean Corpuscular HGB Conc 31.3 g/dL (29.9-35.2); Mean Corpuscular Hemoglobin 29.2 pg (26.7-34.0); Mean Corpuscular Volume 93.3 fL (81.0-99.0); Mean Platelet Volume 9.5 fL (9.5-13.5); Monocytes Absolute Auto 0.5 10^3/uL (0.3-0.8); Neutrophils Absolute Auto 2.4 10^3/uL (1.4-6.5); Neutrophils Percent Auto 56.9 % (43.0-75.0); Platelet Count 238 10^3/uL (150-450); Red Blood Count 3.56 10^6/uL (4.20-5.40); Red Cell Distribution Width 16.4 % (11.0-15.0); White Blood Count 4.2 10^3/uL (4.0-11.0)
[2024-07-02 13:55] LABS: Alanine Aminotransferase 23 U/L (14-59); Albumin Globulin Ratio 0.9; Albumin Level 2.8 g/dL (3.4-5.0); Alkaline Phosphatase 212 U/L (46-116); Anion Gap 13.4; Aspartate Amino Transferase 30 U/L (15-37); Bilirubin Total 0.3 mg/dL (0.2-1.0); Calcium 7.9 mg/dL (8.5-10.1); Carbon Dioxide 21.8 mmol/L (21.0-32.0); Chloride 105 mmol/L (98-107); Estimated GFR (African America 37 (>=60 mL/min/1.73m^2); Estimated GFR (Non-African Ame 31 (>=60 mL/min/1.73m^2); Globulin 3.2 g/dL; Glucose 80 mg/dL (74-106); Potassium 3.2 mmol/L (3.5-5.1); Sodium 137 mmol/L (136-145)
[2024-07-09] MEDS: HEPARIN SODIUM (PORCINE) PF LOCK FLUSH 500 UNIT/5 ML SYRINGE IV (13:20)
[2024-07-09 13:37] LABS: Basophils Absolute Auto 0.1 10^3/uL (0.0-0.1); Basophils Percent Auto 0.6 % (0.2-2.0); Eosinophils Absolute Auto 0.2 10^3/uL (0.0-0.7); Eosinophils Percent Auto 1.9 % (0.9-7.0); Hematocrit 37.5 % (36.0-48.0); Hemoglobin 11.5 g/dL (12.0-16.0); Immature Granulocytes Abs Auto 0.14 10^3/uL (0.00-0.03); Immature Granulocytes Pct Auto 1.4 % (0.0-0.5); Lymphocytes Absolute Auto 1.8 10^3/uL (1.2-3.8); Lymphocytes Percent Auto 17.7 % (20.5-60.0); Mean Corpuscular HGB Conc 30.7 g/dL (29.9-35.2); Mean Corpuscular Volume 94.5 fL (81.0-99.0); Mean Platelet Volume 8.9 fL (9.5-13.5); Monocytes Absolute Auto 0.8 10^3/uL (0.3-0.8); Monocytes Percent Auto 7.8 % (1.7-12.0); Neutrophils Percent Auto 70.6 % (43.0-75.0); Platelet Count 378 10^3/uL (150-450); Red Blood Count 3.97 10^6/uL (4.20-5.40); Red Cell Distribution Width 16.5 % (11.0-15.0); White Blood Count 9.9 10^3/uL (4.0-11.0)
[2024-07-09 13:52] LABS: Alanine Aminotransferase 18 U/L (14-59); Albumin Globulin Ratio 0.9; Albumin Level 3.5 g/dL (3.4-5.0); Alkaline Phosphatase 317 U/L (46-116); Anion Gap 14.8; Aspartate Amino Transferase 19 U/L (15-37); BUN Creatinine Ratio 21.2; Bilirubin Total 0.2 mg/dL (0.2-1.0); Calcium 8.4 mg/dL (8.5-10.1); Chloride 101 mmol/L (98-107); Estimated GFR (African America 27 (>=60 mL/min/1.73m^2); Estimated GFR (Non-African Ame 22 (>=60 mL/min/1.73m^2); Globulin 3.7 g/dL; Glucose 83 mg/dL (74-106); Potassium 4.8 mmol/L (3.5-5.1); Sodium 134 mmol/L (136-145); Total Protein 7.2 g/dL (6.4-8.2)
[2024-07-18 11:42] LABS: Basophils Percent Auto 0.7 % (0.2-2.0); Eosinophils Absolute Auto 0.2 10^3/uL (0.0-0.7); Eosinophils Percent Auto 2.8 % (0.9-7.0); Hematocrit 35.1 % (36.0-48.0); Hemoglobin 10.5 g/dL (12.0-16.0); Immature Granulocytes Abs Auto 0.02 10^3/uL (0.00-0.03); Immature Granulocytes Pct Auto 0.3 % (0.0-0.5); Lymphocytes Absolute Auto 0.9 10^3/uL (1.2-3.8); Lymphocytes Percent Auto 16.4 % (20.5-60.0); Mean Corpuscular HGB Conc 29.9 g/dL (29.9-35.2); Mean Corpuscular Hemoglobin 28.7 pg (26.7-34.0); Mean Corpuscular Volume 95.9 fL (81.0-99.0); Mean Platelet Volume 8.9 fL (9.5-13.5); Monocytes Absolute Auto 0.5 10^3/uL (0.3-0.8); Monocytes Percent Auto 8.9 % (1.7-12.0); Neutrophils Absolute Auto 4.1 10^3/uL (1.4-6.5); Neutrophils Percent Auto 70.9 % (43.0-75.0); Platelet Count 304 10^3/uL (150-450); Red Blood Count 3.66 10^6/uL (4.20-5.40); Red Cell Distribution Width 15.9 % (11.0-15.0); White Blood Count 5.7 10^3/uL (4.0-11.0)
[2024-07-18 12:28] LABS: Alanine Aminotransferase 16 U/L (14-59); Albumin Globulin Ratio 0.8; Albumin Level 3.1 g/dL (3.4-5.0); Alkaline Phosphatase 271 U/L (46-116); Anion Gap 15.1; Aspartate Amino Transferase 25 U/L (15-37); BUN Creatinine Ratio 28.8; Bilirubin Total 0.1 mg/dL (0.2-1.0); Calcium 8.4 mg/dL (8.5-10.1); Carbon Dioxide 24.3 mmol/L (21.0-32.0); Chloride 102 mmol/L (98-107); Estimated GFR (African America 35 (>=60 mL/min/1.73m^2); Estimated GFR (Non-African Ame 29 (>=60 mL/min/1.73m^2); Globulin 3.7 g/dL; Glucose 79 mg/dL (74-106); Potassium 4.4 mmol/L (3.5-5.1); Sodium 137 mmol/L (136-145); Total Protein 6.8 g/dL (6.4-8.2)
[2024-07-26 11:56] LABS: Basophils Percent Auto 0.5 % (0.2-2.0); Eosinophils Absolute Auto 0.2 10^3/uL (0.0-0.7); Eosinophils Percent Auto 2.8 % (0.9-7.0); Hematocrit 35.5 % (36.0-48.0); Immature Granulocytes Abs Auto 0.04 10^3/uL (0.00-0.03); Immature Granulocytes Pct Auto 0.6 % (0.0-0.5); Lymphocytes Absolute Auto 1.2 10^3/uL (1.2-3.8); Lymphocytes Percent Auto 18.3 % (20.5-60.0); Mean Corpuscular Hemoglobin 29.9 pg (26.7-34.0); Mean Corpuscular Volume 96.5 fL (81.0-99.0); Mean Platelet Volume 8.9 fL (9.5-13.5); Monocytes Absolute Auto 0.5 10^3/uL (0.3-0.8); Monocytes Percent Auto 7.2 % (1.7-12.0); Neutrophils Absolute Auto 4.6 10^3/uL (1.4-6.5); Neutrophils Percent Auto 70.6 % (43.0-75.0); Platelet Count 295 10^3/uL (150-450); Red Blood Count 3.68 10^6/uL (4.20-5.40); Red Cell Distribution Width 15.6 % (11.0-15.0); White Blood Count 6.5 10^3/uL (4.0-11.0)
[2024-07-26 12:18] LABS: Alanine Aminotransferase 17 U/L (14-59); Albumin Globulin Ratio 0.9; Albumin Level 3.3 g/dL (3.4-5.0); Alkaline Phosphatase 280 U/L (46-116); Aspartate Amino Transferase 25 U/L (15-37); BUN Creatinine Ratio 24.5; Bilirubin Total 0.1 mg/dL (0.2-1.0); Calcium 8.4 mg/dL (8.5-10.1); Carbon Dioxide 24.4 mmol/L (21.0-32.0); Chloride 103 mmol/L (98-107); Estimated GFR (African America 34 (>=60 mL/min/1.73m^2); Estimated GFR (Non-African Ame 28 (>=60 mL/min/1.73m^2); Globulin 3.7 g/dL; Glucose 85 mg/dL (74-106); Potassium 4.4 mmol/L (3.5-5.1); Sodium 136 mmol/L (136-145)
== END 2024-07-26 23:59 | disposition home or self-care (01) ==
LOC: INF 07:37
PROVIDERS: PCP Internal Medicine Hematology & Oncology; Visit Provider Family Medicine
DX: E87.70 Fluid overload, unspecified (principal); E87.1 Hypo-osmolality and hyponatremia; M54.16 Radiculopathy, lumbar region; N18.32 Chronic kidney disease, stage 3b; E55.9 Vitamin D deficiency, unspecified; N25.81 Secondary hyperparathyroidism of renal origin; I50.9 Heart failure, unspecified; E87.5 Hyperkalemia; I13.0 Hypertensive heart and chronic kidney disease with heart failure and stage 1 through stage 4 chronic kidney disease, or unspecified chronic kidney disease
CPT/HCPCS: 36415; 36591; 80053; 81003; 82043; 82306; 82570; 83735; 83930; 83970; 84100; 84156; 84550; 85025; G0463; J1642

== ENCOUNTER 2024-08-02 12:23 | Outpatient (OUT) | payer MEDICARE, MEDICAID, SELFPAY ==
--- NOTE | 2024-08-02 12:38 | XR_ITS ---
The [address] [address] Patient Name: JOSE CLEMENTS MRN: [id number] date: 1960 Sex: F Assigned Patient Location: [facility] Current Patient Location: Accession/Order Number: [id number] Exam Date: 08/02/2024 12:30 Report Date: 08/05/2024 08:53 At the request of: ANGLE SANTANA Procedure: XR hand LT min 3V PROCEDURE: XR hand LT min 3V COMPARISON: None. HISTORY: Left hand pain FINDINGS: BONES:No acute fracture or dislocation. Mild degenerative changes with joint space narrowing marginal osteophyte formation most significant first carpal metacarpal joint SOFT TISSUES:Negative. No visible soft tissue swelling. EFFUSION:None visible. OTHER: Negative. XR/XR hand LT min 3V IMPRESSION: Mild osteoarthritis. Electronically authenticated by: CARLOS ALCALA Date: 08/05/2024 08:53
== END 2024-08-02 12:24 | disposition home or self-care (01) ==
LOC: RAD 12:23
PROVIDERS: PCP Family Medicine; Visit Provider Family Medicine
DX: M79.642 Pain in left hand (principal); M19.042 Primary osteoarthritis, left hand
CPT/HCPCS: 73130

== ENCOUNTER 2024-08-23 07:35 | Outpatient (RCR) | payer MEDICARE, MEDICAID, SELFPAY ==
[2024-08-02] MEDS: HEPARIN SODIUM (PORCINE) PF LOCK FLUSH 500 UNIT/5 ML SYRINGE IV (12:50)
[2024-08-02 13:04] LABS: Basophils Percent Auto 0.3 % (0.2-2.0); Eosinophils Absolute Auto 0.1 10^3/uL (0.0-0.7); Eosinophils Percent Auto 1.9 % (0.9-7.0); Hematocrit 32.6 % (36.0-48.0); Hemoglobin 10.2 g/dL (12.0-16.0); Immature Granulocytes Abs Auto 0.04 10^3/uL (0.00-0.03); Immature Granulocytes Pct Auto 0.6 % (0.0-0.5); Lymphocytes Absolute Auto 0.9 10^3/uL (1.2-3.8); Lymphocytes Percent Auto 13.4 % (20.5-60.0); Mean Corpuscular HGB Conc 31.3 g/dL (29.9-35.2); Mean Corpuscular Hemoglobin 29.9 pg (26.7-34.0); Mean Corpuscular Volume 95.6 fL (81.0-99.0); Mean Platelet Volume 9.3 fL (9.5-13.5); Monocytes Absolute Auto 0.5 10^3/uL (0.3-0.8); Monocytes Percent Auto 7.3 % (1.7-12.0); Neutrophils Absolute Auto 4.9 10^3/uL (1.4-6.5); Neutrophils Percent Auto 76.5 % (43.0-75.0); Platelet Count 273 10^3/uL (150-450); Red Blood Count 3.41 10^6/uL (4.20-5.40); Red Cell Distribution Width 15.4 % (11.0-15.0); White Blood Count 6.4 10^3/uL (4.0-11.0)
[2024-08-02 13:18] LABS: Alanine Aminotransferase 17 U/L (14-59); Albumin Globulin Ratio 0.9; Albumin Level 3.2 g/dL (3.4-5.0); Alkaline Phosphatase 252 U/L (46-116); Anion Gap 14.8; Aspartate Amino Transferase 23 U/L (15-37); BUN Creatinine Ratio 28.7; Bilirubin Total 0.1 mg/dL (0.2-1.0); Calcium 8.2 mg/dL (8.5-10.1); Carbon Dioxide 25.6 mmol/L (21.0-32.0); Chloride 102 mmol/L (98-107); Estimated GFR (African America 25 (>=60 mL/min/1.73m^2); Estimated GFR (Non-African Ame 21 (>=60 mL/min/1.73m^2); Globulin 3.7 g/dL; Glucose 85 mg/dL (74-106); Potassium 4.4 mmol/L (3.5-5.1); Sodium 138 mmol/L (136-145); Total Protein 6.9 g/dL (6.4-8.2)
[2024-08-23 13:59] LABS: Basophils Percent Auto 0.4 % (0.2-2.0); Eosinophils Absolute Auto 0.2 10^3/uL (0.0-0.7); Eosinophils Percent Auto 3.1 % (0.9-7.0); Hematocrit 32.9 % (36.0-48.0); Hemoglobin 10.3 g/dL (12.0-16.0); Immature Granulocytes Abs Auto 0.03 10^3/uL (0.00-0.03); Immature Granulocytes Pct Auto 0.4 % (0.0-0.5); Lymphocytes Absolute Auto 1.3 10^3/uL (1.2-3.8); Lymphocytes Percent Auto 18.5 % (20.5-60.0); Mean Corpuscular HGB Conc 31.3 g/dL (29.9-35.2); Mean Corpuscular Hemoglobin 30.2 pg (26.7-34.0); Mean Corpuscular Volume 96.5 fL (81.0-99.0); Mean Platelet Volume 9.5 fL (9.5-13.5); Monocytes Absolute Auto 0.5 10^3/uL (0.3-0.8); Monocytes Percent Auto 7.7 % (1.7-12.0); Neutrophils Absolute Auto 4.8 10^3/uL (1.4-6.5); Neutrophils Percent Auto 69.9 % (43.0-75.0); Platelet Count 235 10^3/uL (150-450); Red Blood Count 3.41 10^6/uL (4.20-5.40); Red Cell Distribution Width 14.2 % (11.0-15.0); White Blood Count 6.9 10^3/uL (4.0-11.0)
[2024-08-23 14:44] LABS: Alanine Aminotransferase 20 U/L (14-59); Albumin Globulin Ratio 0.9; Albumin Level 3.2 g/dL (3.4-5.0); Alkaline Phosphatase 263 U/L (46-116); Anion Gap 10.3; Aspartate Amino Transferase 27 U/L (15-37); BUN Creatinine Ratio 27.6; Bilirubin Total 0.1 mg/dL (0.2-1.0); Carbon Dioxide 27.9 mmol/L (21.0-32.0); Chloride 97 mmol/L (98-107); Estimated GFR (African America 28 (>=60 mL/min/1.73m^2); Estimated GFR (Non-African Ame 23 (>=60 mL/min/1.73m^2); Globulin 3.7 g/dL; Glucose 93 mg/dL (74-106); Potassium 4.2 mmol/L (3.5-5.1); Sodium 131 mmol/L (136-145); Total Protein 6.9 g/dL (6.4-8.2)
== END 2024-08-23 23:59 | disposition home or self-care (01) ==
LOC: INF 07:35
PROVIDERS: PCP Internal Medicine Hematology & Oncology; Visit Provider Family Medicine
DX: E87.70 Fluid overload, unspecified (principal); M79.672 Pain in left foot; I10 Essential (primary) hypertension; E87.1 Hypo-osmolality and hyponatremia; M19.042 Primary osteoarthritis, left hand
CPT/HCPCS: 36591; 73130; 80053; 83930; 85025; J1642

== ENCOUNTER 2024-08-27 08:02 | Day surgery (SDC) | payer MEDICARE, MEDICAID, SELFPAY ==
[2024-08-27 08:51] VITALS: BP 173/84; PULSE 74; TEMP 36.8; O2SAT 99
[2024-08-27 09:15] VITALS: PULSE 77; O2SAT 100
[2024-08-27] MEDS: 0.9 % SODIUM CHLORIDE 10 ML SYRINGE - SALINE FLUSH INJ (09:16)
[2024-08-27] MEDS: BUPIVACAINE HCL 0.25% PF 25 MG/10 ML VIAL 5 ML INJ (09:16)
[2024-08-27] MEDS: METHYLPREDNISOLONE ACETATE 80 MG/ML VIAL INJ (09:16)
[2024-08-27] MEDS: IOHEXOL 240 MG/ML - 10 ML VIAL IV (09:17)
[2024-08-27] MEDS: LIDOCAINE HCL 2% 400 MG/20 ML MDV 5 ML INJ (09:17)
[2024-08-27 09:24] VITALS: BP 166/95; BP 168/94; PULSE 75; O2SAT 100
--- NOTE | 2024-08-27 09:58 | P.ON_ITS ---
Date of procedure: 08/27/24 Pre-op diagnosis: Lumbar radiculopathy Post-op diagnosis: same as pre-op Procedure: Caudal Epidural Steroid Injection With catheter advancement Pre-operative diagnosis includes Radiculopathy, Postoperative diagnosis same, Under fluoroscopic guidance Solution used for the injection is Marcaine 0.25% Depo-Medrol 80 mg total of 5ml Omnipaque 3cc,3ml total, 1ml was used for injection to confirm needle tip placement and catheter tip placement within the epidural space. catheter was removed with the tip intact. Anesthesia: local anesthesia using 2% lidocaine, total no more than 5 mL. Timeout process compliant After obtaining informed consent .the patient was brought to the procedure room .placed in the prone position . the area was prepped and draped in a sterile fashion utilizing betadine. 25 gauge needle was used to create a skin wheal over the sacral hiatus identified under fluoroscopy. 17 gauge touhy needle was inserted over the anesthetized area and directed to the nez perce hiatus under fluoroscopic guidance. after piercing the sacrococcygeal ligament. Confirmation of needle tip placement within the epidural space was accomplished with injection of contrast solution in AP and Lateral views. Epidural catheter was advanced to the L5 level .catheter placement confirmed with injection of contrast solution . the steroid solution was then injected .needle and catheter was removed post procedurally. patient transferred to recovery area in stable co ndition. Discharged home after meeting criteria. Anesthesia: Local Surgeon: Terry David Condition: stable
== END 2024-08-27 09:28 | disposition home or self-care (01) ==
LOC: SURGOUT 08:02
PROVIDERS: PCP Family Medicine; Visit Provider Anesthesiology Pain Medicine
DX: M54.16 Radiculopathy, lumbar region (principal)
CPT/HCPCS: 62323; J0665; J1010; Q9966

== ENCOUNTER 2024-09-05 09:55 | Outpatient (OUT) | payer MEDICARE, MEDICAID, SELFPAY ==
--- NOTE | 2024-09-05 10:27 | PM.CN ---
Consult Note: HPI Data of Consult Patient: known to practice within the last 3 years Requesting Physician: Louann Jackson NP Primary Care Provider: Yuri Godinez MD Consult Narrative Reason for consult: f/u Narrative: Mabel Moser a pleasant 64 year old female presents for evaluation of chronic pain. historically has benefitted from lumbar ESIs and joint injections. Pt currently on percocet, fentanyl, voltaren gel through PCP. cannot take NSAIDs due to CKD. engages in HEP >6 weeks without improvement. recently underwent repeat caudal ROBSON with >80% improvement in radiculopathy. continues to report moderate to severe right sided low back pain. pain today 5/10 increasing to 8/10 with standing, walking, weight bearing. cc:: CC: Louann Jackson NP Review of Systems ROS Status of ROS 10 or more systems reviewed and unremarkable except as noted in history and below Musculoskeletal Reports: back pain and joint pain PFSH PFSH Medical History Hyperglycemia ?R73.9 - Hyperglycemia, unspecified (ICD-10) Recurrent UTI ?N39.0 - Urinary tract infection, site not specified (ICD-10) Atelectasis of both lungs ?J98.11 - Atelectasis (ICD-10) C2 cervical fracture ?S12.100A - Unspecified displaced fracture of second cervical vertebra, initial encounter for closed fracture (ICD-10) Shoulder pain, left ?M25.512 - Pain in left shoulder (ICD-10) Pulmonary embolism ?I26.99 - Other pulmonary embolism without acute cor pulmonale (ICD-10) DVT (deep venous thrombosis) ?I82.409 - Acute embolism and thrombosis of unspecified deep veins of unspecified lower extremity (ICD-10) Osteoporosis ?M81.0 - Age-related osteoporosis without current pathological fracture (ICD-10) Seizures ?R56.9 - Unspecified convulsions (ICD-10) IBS (irritable bowel syndrome) ?K58.9 - Irritable bowel syndrome without diarrhea (ICD-10) D-dimer, elevated ?R79.89 - Other specified abnormal findings of blood chemistry (ICD-10) Chronic kidney insufficiency ?N18.9 - Chronic kidney disease, unspecified (ICD-10) Fluid overload ?E87.70 - Fluid overload, unspecified (ICD-10) Lymphedema ?I89.0 - Lymphedema, not elsewhere classified (ICD-10) Volume overload ?E87.70 - Fluid overload, unspecified (ICD-10) Anemia of chronic disease ?D63.8 - Anemia in other chronic diseases classified elsewhere (ICD-10) Chronic kidney disease ?N18.9 - Chronic kidney disease, unspecified (ICD-10) Acute kidney injury ?N17.9 - Acute kidney failure, unspecified (ICD-10) Edema of lower leg due to peripheral venous insufficiency ?I87.2 - Venous insufficiency (chronic) (peripheral) (ICD-10) ?R60.0 - Localized edema (ICD-10) Depression ?F32.A - Depression, unspecified (ICD-10) Gastroenteritis ?K52.9 - Noninfective gastroenteritis and colitis, unspecified (ICD-10) Migraine without aura and without status migrainosus, not intractable ?G43.009 - Migraine without aura, not intractable, without status migrainosus (ICD-10) Chronic heart failure with preserved ejection fraction (HFpEF) ?I50.32 - Chronic diastolic (congestive) heart failure (ICD-10) Chest pain ?R07.9 - Chest pain, unspecified (ICD-10) Dyspnea ?R06.00 - Dyspnea, unspecified (ICD-10) Osteoarthritis ?M19.90 - Unspecified osteoarthritis, unspecified site (ICD-10) Anemia ?D64.9 - Anemia, unspecified (ICD-10) Anxiety ?F41.9 - Anxiety disorder, unspecified (ICD-10) Stroke ?I63.9 - Cerebral infarction, unspecified (ICD-10) Acid reflux ?K21.9 - Gastro-esophageal reflux disease without esophagitis (ICD-10) Hypothyroid ?E03.9 - Hypothyroidism, unspecified (ICD-10) COPD (chronic obstructive pulmonary disease) ?J44.9 - Chronic obstructive pulmonary disease, unspecified (ICD-10) Asthma ?J45.909 - Unspecified asthma, uncomplicated (ICD-10) CHF (congestive heart failure) ?I50.9 - Heart failure, unspecified (ICD-10) Irregular heart beat ?I49.9 - Cardiac arrhythmia, unspecified (ICD-10) HTN (hypertension) ?I10 - Essential (primary) hypertension (ICD-10) Heart attack ?I21.9 - Acute myocardial infarction, unspecified (ICD-10) Lumbar spondylosis ?M47.816 - Spondylosis without myelopathy or radiculopathy, lumbar region (ICD-10) Surgical History H/O cervical spinal arthrodesis ?Z98.1 - Arthrodesis status (ICD-10) Port-A-Cath in place ?Z95.828 - Presence of other vascular implants and grafts (ICD-10) History of lumbar fusion ?Z98.1 - Arthrodesis status (ICD-10) H/O hysterectomy with oophorectomy H/O gastric bypass ?Z98.84 - Bariatric surgery status (ICD-10) History of hernia repair ?Z98.890 - Other specified postprocedural states (ICD-10) ?Z87.19 - Personal history of other diseases of the digestive system (ICD-10) History of rotator cuff surgery ?Z98.890 - Other specified postprocedural states (ICD-10) History of right knee joint replacement ?Z96.651 - Presence of right artificial knee joint (ICD-10) History of appendectomy ?Z90.49 - Acquired absence of other specified parts of digestive tract (ICD-10) Hx of cholecystectomy ?Z90.49 - Acquired absence of other specified parts of digestive tract (ICD-10) Family History Father Family history of CHF (congestive heart failure) Family history of diabetes mellitus Family history of hypertension Family history of myocardial infarction Family history of stroke Mother Family history of CHF (congestive heart failure) Family history of COPD (chronic obstructive pulmonary disease) Family history of diabetes mellitus Family history of hypertension Family history of myocardial infarction Family history of stroke Social History Within the past year, how often did you have a drink containing alcohol: never Within the past year, how often did you have six or more drinks on one occasion: never Score interpretation: A score less than 3 is consistent with normal alcohol consumption. 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 Highest level of school completed/degree received: some college, no degree Are you now , , , , never or living with a partner: In a typical week, how many times do you talk on the telephone with family, friends, or neighbors: 3 or more times per week How often do you get together with friends or relatives: twice per week How often do you attend orthodox or mormonism services: 4 or more times per year Do you belong to any clubs or organizations such as orthodox groups unions, fraternal or athletic groups, or school groups: no Total score: 3 Score interpretation: A score of greater than or equal to 2 indicates the lowest level of social isolation. Little interest or pleasure in doing things: not at all Feeling down, depressed, or hopeless: several days Feel stressed/tense/nervous/anxious/difficulty sleeping: to some extent Life stressors: recent of family or friend Do you think of yourself as: straight/heterosexual Gender Identity: female Meds Home Medications and Allergies Home Medications ?Medication ?Instructions ?Recorded ?Confirmed ?Type alprazolam 0.5 mg tablet 0.5 mg PO BID PRN anxiety 12/08/22 08/27/24 History amitriptyline 150 mg tablet 300 mg PO BEDTIME 12/08/22 08/27/24 History calcium acetate(phosphat bind) 667 667 mg PO BIDWM 12/08/22 08/27/24 History mg capsule levothyroxine 100 mcg tablet 100 mcg PO DAILY 12/08/22 08/27/24 History linaclotide 290 mcg capsule 290 mcg PO DAILY 12/08/22 08/27/24 History (Linzess) oxycodone-acetaminophen 5 mg-325 2 tab PO Q6H PRN pain 12/08/22 08/27/24 History mg tablet primidone 50 mg tablet 150 mg PO BEDTIME 12/08/22 08/27/24 History tizanidine 4 mg tablet (Zanaflex) 4 mg PO Q6H PRN muscle spasticity 12/08/22 08/27/24 History aripiprazole 2 mg tablet (Abilify) 2 mg PO DAILY 01/23/23 08/27/24 History bumetanide 1 mg tablet 6 mg PO DAILY SWELLING 01/23/23 08/27/24 History butorphanol 10 mg/mL nasal spray 1 spray intranasal .QD PRN pain 02/03/23 08/27/24 History azelastine 0.05 % eye drops 1 drp ophthalmic (eye) DAILY 09/29/23 08/27/24 History desvenlafaxine succinate 50 mg 50 mg PO DAILY 09/29/23 08/27/24 History tablet,extended release 24 hr diclofenac sodium 1 % topical gel 2 g topical .QD PRN 09/29/23 08/27/24 History PAIN/INFLAMMATION doxepin 10 mg capsule 10 mg PO BID 09/29/23 08/27/24 History escitalopram oxalate 20 mg tablet 20 mg PO DAILY 09/29/23 08/27/24 History fentanyl 100 mcg/hr transdermal 1 patch transdermal Q72H 10/12/23 08/27/24 History patch pramipexole 1 mg tablet 1 mg PO .qd 10/23/23 08/27/24 History sacubitril 49 mg-valsartan 51 mg 1 tab PO BID 01/04/24 08/27/24 History tablet (Entresto) spironolactone 50 mg tablet 50 mg PO Q12H 01/04/24 08/27/24 History apixaban 5 mg tablet (Eliquis) 5 mg PO BID 03/29/24 08/27/24 History atorvastatin 40 mg tablet 40 mg PO .HS 03/29/24 08/27/24 History zkuufhliug-qbhwowekvsrgm-xtvffzul cap 03/29/24 History 50 mg-300 mg-40 mg capsule fluticasone furoate 100 1 inh inhalation Q24H 03/29/24 04/09/24 History mcg-vilanterol 25 mcg/dose inhalation powder (Breo Ellipta) sevelamer carbonate 800 mg tablet 800 mg PO TID 03/29/24 08/27/24 History Allergies Allergy/AdvReac Type Severity Reaction Status Date / Time povidone-iodine (From Allergy Intermediate Rash Verified 08/27/24 08:54 Betadine) amoxicillin (From Augmentin) AdvReac Mild Vomiting Verified 08/27/24 08:56 clavulanic acid (From AdvReac Mild Vomiting Verified 08/27/24 08:56 Augmentin) Sulfa (Sulfonamide AdvReac Mild Vomiting Verified 08/27/24 08:56 Antibiotics) ciprofloxacin (From Cipro) AdvReac Unknown Vomiting Verified 08/27/24 08:56 Exam Constitutional Documenting provider has reviewed patient's vital signs: yes Common normals: no apparent distress, oriented x3, healthy appearing, alert and well nourished General appearance: cooperative HENMT Common normals: normocephalic, hearing grossly normal bilaterally and moist oral mucous membranes Head and scalp: normocephalic Eye Common normals: PERRL Pupil: PERRL Neck & C-Spine Common normals: full ROM General: normal visual inspection Chest Common normals: inspection of chest normal Respiratory Common normals: normal respiratory effort, no retractions and no use of accessory muscles Back & Pelvis Lumbar spine/lower back: pain with ROM, lumbar spinal tenderness and straight leg raise negative bilaterally Sacroiliac joints: SI joint(s) abnormal Other: strength 5/5 in BLE right sij positive stephenie(patricks), gaenslens, thigh thrust, compression test Extremity Other: significant edema to BLE, hx of lymphedema Neuro Common normals: oriented x3, CN's II-XII intact bilaterally, moves all extremities, no focal motor deficits, no sensory deficits noted and deep tendon reflexes 2+ bilaterally Sensorium/orientation: alert Motor exam: strength 5/5 throughout and no movement abnormalities noted Psych Common normals: mental status grossly normal, thought process normal, cooperative, affect normal, speech normal and activity/motor behavior normal Speech: normal speech Thought process: normal thought process Results Additional Findings Additional findings: If on a controlled substance or opioids, I have checked an [place] report on this patient and there are no aberrancies noted in the prescribing history.??If on a controlled substance or opioid a drug screen was completed and reviewed within the last year, and if there has not been a drug screen completed we ordered one today to monitor higher risk, state monitored pain medication use. As part of providing excellent, safe, comprehensive care, the following was completed at our patient's visit: 1. A medication reconciliation and review to ensure accurate knowledge of current/active medications, including asking our patients to inform us about any vhxf-fqd-mleiefo medications or herbal remedies/nutritional supplements/alternative remedies. 2. A review to specifically ensure our patients have had annual screening for screening for depression, screening for tobacco use, and screening for unhealthy alcohol use. For concerning screenings had a discussion with the patient, provided patient education, and recommended follow-up with primary care provider when appropriate. If patient noted with a risk of falling, they received education on strength, gait, and balance training to prevent future risk of falling. Portions of this note may have been carried over from the previous visit and updated as appropriate. Please note this office utilizes paper charting in addition to the electronic medical record. A list of current medications, vitals, and PMH is available there as the clinical staff outside of myself do not have access to [employer] charting during the clinic day operations. As part of providing quality comprehensive care the current medications, vitals, and PMH were reviewed in the paper chart. Assessment and Plan Assessment and Plan (1) Lumbar radiculopathy: Assessment and Plan: 08/27/24 caudal ROBSON >50% improvement ongoing (2) Sacroiliitis: Assessment and Plan: The patient has had over 3 months of moderate to severe back pain with functional impairment and inadequate response to conservative care including NSAIDS (unless there are contraindication such as concurrent blood thinners), multiple oral or topical pain medications, and home exercise program/physical therapy.? Patient has completed >6 weeks of guided home exercise program and/or formal physical therapy program without relief of their symptoms.? I have reviewed the imaging of the lumbosacral spine and no red flags were identified.? The Oswestry Disability Index was completed, and the patient scored a 52%.? The patient noted the following:?? moderate to severe pain impacting ADLs, sitting, standing, walking, and sleep We discussed the risks and benefits of the procedure with the patient, and we are NOT planning on using sedation as outlined in the guidelines from Medicare unless there is a documented reason that sedation would be strongly recommended.?? ?The procedure will be completed with fluoroscopic guidance.? Plan right SIJ injection under fluoroscopy continue HEP as tolerated avoid NSAIDs, CKD. continue medication management through PCP f/u after injection
== END 2024-09-05 09:56 | disposition home or self-care (01) ==
LOC: PM 09:55
PROVIDERS: PCP Family Medicine; Visit Provider Nurse Practitioner
DX: M54.16 Radiculopathy, lumbar region (principal); M46.1 Sacroiliitis, not elsewhere classified
CPT/HCPCS: G0463

== ENCOUNTER 2024-09-11 12:00 | Outpatient (RCR) | payer MEDICARE, MEDICAID, SELFPAY ==
[2024-08-30] MEDS: HEPARIN SODIUM (PORCINE) PF LOCK FLUSH 500 UNIT/5 ML SYRINGE IV (11:00)
[2024-08-30 11:25] LABS: Basophils Percent Auto 0.4 % (0.2-2.0); Eosinophils Absolute Auto 0.2 10^3/uL (0.0-0.7); Eosinophils Percent Auto 3.6 % (0.9-7.0); Hematocrit 34.2 % (36.0-48.0); Hemoglobin 10.8 g/dL (12.0-16.0); Immature Granulocytes Abs Auto 0.04 10^3/uL (0.00-0.03); Immature Granulocytes Pct Auto 0.6 % (0.0-0.5); Lymphocytes Absolute Auto 1.6 10^3/uL (1.2-3.8); Lymphocytes Percent Auto 23.7 % (20.5-60.0); Mean Corpuscular HGB Conc 31.6 g/dL (29.9-35.2); Mean Corpuscular Hemoglobin 31.1 pg (26.7-34.0); Mean Corpuscular Volume 98.6 fL (81.0-99.0); Mean Platelet Volume 8.7 fL (9.5-13.5); Monocytes Absolute Auto 0.6 10^3/uL (0.3-0.8); Monocytes Percent Auto 8.5 % (1.7-12.0); Neutrophils Absolute Auto 4.3 10^3/uL (1.4-6.5); Neutrophils Percent Auto 63.2 % (43.0-75.0); Platelet Count 262 10^3/uL (150-450); Red Blood Count 3.47 10^6/uL (4.20-5.40); Red Cell Distribution Width 14.3 % (11.0-15.0); White Blood Count 6.7 10^3/uL (4.0-11.0)
[2024-08-30 11:59] LABS: Alanine Aminotransferase 18 U/L (14-59); Albumin Globulin Ratio 0.9; Albumin Level 3.4 g/dL (3.4-5.0); Alkaline Phosphatase 268 U/L (46-116); Anion Gap 13.7; Aspartate Amino Transferase 22 U/L (15-37); BUN Creatinine Ratio 25.7; Bilirubin Total 0.2 mg/dL (0.2-1.0); Calcium 8.1 mg/dL (8.5-10.1); Carbon Dioxide 25.1 mmol/L (21.0-32.0); Chloride 100 mmol/L (98-107); Estimated GFR (African America 33 (>=60 mL/min/1.73m^2); Estimated GFR (Non-African Ame 27 (>=60 mL/min/1.73m^2); Globulin 3.8 g/dL; Glucose 89 mg/dL (74-106); Potassium 3.8 mmol/L (3.5-5.1); Sodium 135 mmol/L (136-145); Total Protein 7.2 g/dL (6.4-8.2)
[2024-09-05 11:13] LABS: Basophils Percent Auto 0.5 % (0.2-2.0); Eosinophils Absolute Auto 0.1 10^3/uL (0.0-0.7); Hematocrit 33.6 % (36.0-48.0); Hemoglobin 10.6 g/dL (12.0-16.0); Immature Granulocytes Abs Auto 0.01 10^3/uL (0.00-0.03); Immature Granulocytes Pct Auto 0.2 % (0.0-0.5); Lymphocytes Absolute Auto 1.3 10^3/uL (1.2-3.8); Lymphocytes Percent Auto 22.4 % (20.5-60.0); Mean Corpuscular HGB Conc 31.5 g/dL (29.9-35.2); Mean Corpuscular Volume 98.2 fL (81.0-99.0); Monocytes Absolute Auto 0.5 10^3/uL (0.3-0.8); Monocytes Percent Auto 7.7 % (1.7-12.0); Neutrophils Percent Auto 67.2 % (43.0-75.0); Platelet Count 246 10^3/uL (150-450); Red Blood Count 3.42 10^6/uL (4.20-5.40); Red Cell Distribution Width 14.2 % (11.0-15.0)
[2024-09-05 11:50] LABS: Alanine Aminotransferase 19 U/L (14-59); Albumin Globulin Ratio 0.9; Albumin Level 3.3 g/dL (3.4-5.0); Alkaline Phosphatase 268 U/L (46-116); Anion Gap 13.3; Aspartate Amino Transferase 24 U/L (15-37); BUN Creatinine Ratio 25.9; Bilirubin Total 0.2 mg/dL (0.2-1.0); Calcium 8.4 mg/dL (8.5-10.1); Carbon Dioxide 25.5 mmol/L (21.0-32.0); Chloride 99 mmol/L (98-107); Estimated GFR (African America 30 (>=60 mL/min/1.73m^2); Estimated GFR (Non-African Ame 25 (>=60 mL/min/1.73m^2); Globulin 3.8 g/dL; Glucose 84 mg/dL (74-106); Potassium 3.8 mmol/L (3.5-5.1); Sodium 134 mmol/L (136-145); Total Protein 7.1 g/dL (6.4-8.2)
[2024-09-11 09:18] LABS: Basophils Percent Auto 0.6 % (0.2-2.0); Eosinophils Absolute Auto 0.1 10^3/uL (0.0-0.7); Eosinophils Percent Auto 2.9 % (0.9-7.0); Hemoglobin 9.9 g/dL (12.0-16.0); Immature Granulocytes Abs Auto 0.02 10^3/uL (0.00-0.03); Immature Granulocytes Pct Auto 0.4 % (0.0-0.5); Lymphocytes Percent Auto 21.3 % (20.5-60.0); Mean Corpuscular HGB Conc 30.9 g/dL (29.9-35.2); Mean Corpuscular Hemoglobin 30.5 pg (26.7-34.0); Mean Corpuscular Volume 98.5 fL (81.0-99.0); Monocytes Absolute Auto 0.6 10^3/uL (0.3-0.8); Monocytes Percent Auto 11.6 % (1.7-12.0); Neutrophils Percent Auto 63.2 % (43.0-75.0); Platelet Count 239 10^3/uL (150-450); Red Blood Count 3.25 10^6/uL (4.20-5.40); White Blood Count 4.8 10^3/uL (4.0-11.0)
[2024-09-11 10:07] LABS: Alanine Aminotransferase 18 U/L (14-59); Albumin Level 3.6 g/dL (3.4-5.0); Alkaline Phosphatase 289 U/L (46-116); Anion Gap 12.6; Aspartate Amino Transferase 34 U/L (15-37); BUN Creatinine Ratio 26.5; Bilirubin Total 0.3 mg/dL (0.2-1.0); Calcium 8.6 mg/dL (8.5-10.1); Carbon Dioxide 26.9 mmol/L (21.0-32.0); Chloride 100 mmol/L (98-107); Estimated GFR (African America 28 (>=60 mL/min/1.73m^2); Estimated GFR (Non-African Ame 23 (>=60 mL/min/1.73m^2); Globulin 3.5 g/dL; Glucose 90 mg/dL (74-106); Potassium 3.5 mmol/L (3.5-5.1); Sodium 136 mmol/L (136-145); Total Protein 7.1 g/dL (6.4-8.2)
== END 2024-09-23 23:59 | disposition home or self-care (01) ==
LOC: INF 12:00
PROVIDERS: PCP Internal Medicine Hematology & Oncology; Visit Provider Family Medicine
DX: E87.70 Fluid overload, unspecified (principal); I10 Essential (primary) hypertension; E87.1 Hypo-osmolality and hyponatremia; M54.16 Radiculopathy, lumbar region; M46.1 Sacroiliitis, not elsewhere classified
CPT/HCPCS: 36415; 36591; 80053; 83930; 85025; G0463; J1642

== ENCOUNTER 2024-09-15 17:26 | Observation (INO) | payer MEDICARE, MEDICAID, SELFPAY ==
[2024-09-15] VITALS (8 sets, daily range): BP systolic 145–159; BP diastolic 78–94; PULSE 82–97; TEMP 36.6–36.7; O2SAT 93–100; BMI 41.9; BMI 41.5
--- OUTSIDE RECORDS SUMMARY | 2024-09-15 17:33 | XMS_ITS | CCD ---
Author Organization [facility] Care Team Providers Care Trumpet Teacher Name Role Phone NIRMAL LEWIS Admitting Unavailable [...] Unavailable MD Yuri Santana Primary Care Provider WALLY Helm Emergency Provider ROBERT JOHNSTON Attending Unavailable ROBERT JOHNSTON Admitting Unavailable ESTHER ., DR BARBOUR Primary Care Unavailable DR BUNNY ZEPEDA Consulting Unavailable ROBERT JOHNSTON Consulting Unavailable MUKUNDY ., DR BARBOUR Admitting Unavailable HOY ., DR BARBOUR Primary Care Unavailable HOY ., DR BARBOUR Consulting Unavailable HOY ., DR BARBOUR Attending Unavailable HOY ., DR BARBUOR Admitting Unavailable HOY ., DR BARBOUR Primary [...] Unavailable HOY ., DR BARBOUR Attending Unavailable DINGLE, DR CARLOS Castillo Consulting Unavailable LAKSHMIPATHY ., NARENDRANATH Attending Yumiko vailable LAKSHMIPATHY ., NARENDRANATH Admitting Yumiko vailable HOY ., DR BARBOUR Primary Care Unavailable ZIEBER, DR BUNNY Trujillo Consulting Unavailable HALKER ., SANTOS Consulting Unavailable BAKHOUS, AZIZ Attending Unavailable BAKHOUS, AZIZ Admitting Unavailable BAKHOUS, AZIZ Consulting Unavailable HOY ., DR BARBORU Primary Care Unavailable HOY ., DR BARBOUR [...] TAMLYN ., FELECIA Admitting Unavailable JASPREET II, ILZETTE Consulting Unavailable HOY ., DR BARBOUR Primary Care Unavailable TAMLYN ., FELEICA Consulting Unavailable JOSE VILLANUEVA Consulting Unavailable PEREZ [...] Unavailable MD Yuri Santana Primary Care Provider [phone] MD Beatriz Oh Admit Provider DO Jim Randhawa Attending Provider MD [place] Other Provider Jim Randhawa Attending Unavailable Beatriz Oh Admolena Unavailable [place] Consulting Unavailable Yuri Santana Primary Care Unavailable Favian Helm Admitting Unavailable Favian Helm Attending Unavailable Yuri Santana Primary Care Unavailable HOY, YURI M Referring Unavailable HOY, YURI M Primary Care Unavailable HoyVinayYuri Primary Care Physician [phone] Migel MCKINNEY Attending Unavailable Mukundy, Yuri Referring [...] Amoxicillin Drug Allergy 10-29-19 23 Unknown, Diarrhea [facility] (6 sources) Amoxicillin / Clavulanate; Translations: [amoxicillin-clavul anate] Drug Allergy Weal (disorder) [facility] (16 sources) Povidone-Iodine; Translations: [POVIDONE-IODINE] Drug Allergy 08-15-19 17 Eruption of skin (disorder) [facility] (9 sources) Sulfamethoxazole / Trimethoprim Drug Allergy Unknown [facility] Other (1 source) sulfaSALAzine Drug Allergy Unknown [facility] Other (8 sources) Amoxicillin / Clavulanate; Translations: [Augmentin] Drug Allergy 11-26-19 13 Unknown [facility] (1 source) Bumetanide Drug Allergy 03-22-20 16 [facility] (1 source) Cephalexin Drug Allergy 01-15-20 14 [facility] (2 sources) gabapentin; Translations: [GABAPENTIN] Drug Allergy 08-19-19 22 [facility] (4 sources) Povidone-Iodine; Translations: [Betadine] Drug Allergy 11-26-19 13 [facility] (1 source) pregabalin; Translations: [LYRICA] Drug Allergy 08-19-19 22 [facility] (9 sources) Sulfonamides (Antibiotic); Translations: [SULFA (SULFONAMIDE ANTIBIOTICS)] Drug allergy (disorder) 11-26-19 13 Rash [facility] (1 source) Sulfonamide Drug allergy Unknown [facility] Other (7 sources) Substance with sulfonamide structure and antibacterial mechanism of action (substance) Drug allergy Unknown [facility] Other (4 sources) Clavulanate; Translations: [clavulanic acid] Drug Allergy 10-29-19 Diarrhea [facility] (1 source) Ciprofloxacin Drug Allergy 05-26-20 [facility] (1 source) Amoxicillin Drug Allergy 04-04-20 [facility] (1 source) Povidone-Iodine Drug Allergy 04-04-20 [facility] (2 sources) Sulfamethoxazole Drug Allergy 04-04-20 23 Unknown Reaction [facility] (1 source) Sulfonamides (Antibiotic) Drug allergy (disorder) 04-04-20 [facility] (2 sources) Trimethoprim Drug Allergy 04-04-20 Unknown Reaction [facility] (3 sources) AMOXICILLIN-POT CLAVULANATE; Translations: [AMOXICILLIN-POT CLAVULANATE] Propensity to adverse reactions to drug (disorder) 06-13-20 14 [facility] (2 sources) Sulfonamides (Antibiotic); Translations: [sulfa drugs] Drug allergy Eruption of skin (disorder) [facility] (1 source) carvedilol; Translations: [CARVEDILOL] Drug Allergy 12-21-19 [facility] (1 source) Cephalexin; Translations: [CEPHALEXIN] Drug Allergy 06-13-20 14 [facility] (1 source) Ciprofloxacin; Translations: [CIPROFLOXACIN] Drug Allergy 10-11-19 [facility] (1 source) Iodine; Translations: [IODINE] Drug Allergy 11-28-19 [facility] (1 source) pregabalin; Translations: [PREGABALIN] Drug Allergy 10-11-19 [facility] (1 source) Sulfamethoxazole / Trimethoprim; Translations: [SULFAMETHOXAZOLE-T RIMETHOPRIM] Drug Allergy 11-28-19 [facility] Medications Current Medications Medication Drug [...] 02/12/24 Status: Ordered Start: 10-28-2022 End: 06-30-2023 Keoalapcyl-Wxtrhiasawlyj-Xhg f Discontinued 1 CAP PO As Directed [...] Start: 02-12-2024 buto rphanol 10 mg/mL Nasal [place] = 1 spray(s), Nasal, Daily, PRN as [...] Start: 02-12-2024 take 3 tablets by mo [facility] once daily primidone 50 mg Tab 150 [...] 2018 7:59am take 2 tablets by mo [facility] every twenty-four hours Primidone 50 MG 2 [...] 30, 2023 12:34am take [address] [facility] twice daily Sacubitril-Valsartan 97-103 MG 3 [...] 2018 1:00am take 2 tablets by mo [facility] every four hours as needed oxyCODONE-Acetaminophen 5-325 [...] 30, 2023 1:30am take 1 tablet by [facility] four times daily as needed Dicyclomine HCl 20 MG 1 tablet Orally Fo ur times a day NEEDED Active DULoxetine 60 mg delayed release oral capsule (12 sources) Serotonin and Norepinephrine Reuptake Inhibitor Start: 10-28-2022 End: 03-26-2024 take 120 mg by mouth once daily Duloxetine Discontinued 120 MG PO Daily October 28, 2022 12:00am March 26, 2024 12:05pm take [address] [facility] every twelve hours DULoxetine HCl 60 [...] with food Orally Twice a day Not-Taking/PRN Lx-Xovjvhi-Ypt-Iron Fm-Fa-Vitk (Multi For Her) 18 mg iron-600 mcg-80 mcg Tablet (3 sources) Start: 08-31-2018 End: 06-30-2023 take 1 tablet by mouth once daily Fw-Cyutkif-Gkx-Iron Fm-Fa-Vitk (Multi For Her) 18 mg iron-600 mcg-80 mcg Tablet Discontinued 1 TAB PO Daily August 31, 2018 1:00am June 30, 2023 1:26am Start: 08-31-2018 End: 06-30-2023 take 1 tablet by mouth once daily Ad-Koucima-Zop-Iron Fm-Fa-Vitk (Multi For Her) 18 mg iron-600 mcg-80 mcg Tablet Discontinued 1 TAB PO Daily August 31, 2018 12:00am June 30, 2023 12:26am Start: 08-31-2018 take 1 tablet by joseph th once daily Vx-Srvdoks-Sik-Iron Fm-Fa-Vitk (Multi For Her) 18 mg iron-600 [...] disease (2 sources) Atherosclerotic heart disease of [place] coronary artery without angina pectoris; Translations: [Coronary [...] medical drugs (1 source) Adverse effect of waebnegiewa-lhgyibgiwe-j nzyme inhibitors, initial encounter; Translations: [ADVERSE EFFECT [...] aftercare (3 sources) Polypharmacy ; Translations: [Other intermission coordinator (current) drug therapy] 09-04-2018 Episodic Other aftercare (1 source) Other intermission coordinator (current) drug therapy; Translations: [OTH DETENTION CURRENT [...] radiculopathy, unspecified cervical region] Onset: 1 Episodic Sprains and strains (2 sources) Strain of muscle(s) and tendon(s) of the rotator cuff of left shoulder, initial encounter; Translations: [Strain of muscle(s) and tendon(s) of the rotator cuff of left shoulder, initial encounter] Onset: 3 Episodic Superficial injury; contusion (3 sources) Contusion [...] Test Name Value Interpretation Reference Range Facility Follow-Upon 09-09-2024 Follow-Up [id number] Loren Moser 1960 F Date Provider Department Center 09/09/2024 MATTHEW MONTEIRO MP ORTHO MPORTHO Family History Family history unknown: Yes Level of Service:87539 PA OFFICE/OUTPATIENT ESTABLISHED LOW MDM 20 MIN (GC) Normal [facility] Office Visiton 03-27-2024 Follow-up visit [id number] Loren Moser 1960 F Date Provider Department Center 03/27/2024 Kasi-BENJIE DANG YVONNE [facility] Family History Family history unknown: Yes Level of Service:92433 PA OFFICE/OUTPATIENT ESTABLISHED LOW MDM 20 MIN Normal [facility] Ambulatory Visit Summaryon 0 03-05-2024 Ambulatory Visit Summary Ambulatory Visit Summary MABEL MOSER :1960 Visit Date:03/05/2024 Ambulatory Visit Instructions Your Care Team Attending Physician - FAYE ASCENCIO, Migel Trujillo Primary Care Physician - Esther ASCENCIO, Yuri Referring Physician - Yuri Santana MD This Is Your Medications List APAP/butalbital/caffeine (Fioricet oral capsule) acetaminophen-oxycodone (Percocet 5 mg-325 mg oral tablet) alprazolam (alprazolam 0.5 mg Tab) amitriptyline (amitriptyline 150 mg Tab) apixaban (Eliquis 5 mg oral tablet) aspirin (aspirin 81 mg Chew Tab) atorvastatin (atorvastatin 40 mg Tab) bumetanide (bumetanide 2 mg Tab) butorphanol (butorphanol 10 mg/mL Nasal [place]) cyanocobalamin (cyanocobalamin 1000 mcg/mL Inj) desvenlafaxine (desvenlafaxine [...] Unchanged butorphanol (butorphanol 10 mg/ mL Nasal [place]) 1 Sprays Nasal Inhalation Every day as [...] hypertension Bilate (more content not included)... Normal [facility] Magnesiumon 01-30-2024 Magnesium [Mass/Vol] 2.0 mg/dL Normal 1.6-2.4 [facility] Comment on above: Performed By: #### C DP, CMPX #### [facility] [address] [place] [address] Urology Physician Assistant: Michael Chen MD CBC with Diffon 01-29-2024 Abs. Basophil 0.00 k/uL Normal 0.0-0.2 [facility] Comment on above: Performed By: #### C DP, CMPX #### [address] [address] Urology Physician Assistant: Michael Chen MD Abs.Imm.Granulocyte 0.09 k/uL Normal 0.00-0.30 [facility] Comment on above: Performed By: #### C DP, CMPX #### [address] [address] Urology Physician Assistant: Michael Chen MD Abs.Neutrophil (Seg) 6.87 k/uL Normal 1.8-7.7 [facility] Comment on above: Performed By: #### C DP, CMPX #### [address] [address] Urology Physician Assistant: Michael Chen MD Basophils/100 WBC (Bld) 0 % Normal 0-2 [facility] Comment on above: Performed By: #### C DP, CMPX #### [address] [address] Urology Physician Assistant: Michael Chen MD Eosinophils (Bld) [#/Vol] 0.26 10*3/uL Normal 0.0-0.4 [facility] Comment on above: Performed By: #### C DP, CMPX #### [address] [address] Urology Physician Assistant: Michael Chen MD Eosinophils/100 WBC (Bld) 3 % Normal 1-4 [facility] Comment on above: Performed By: #### C DP, CMPX #### [address] [address] Urology Physician Assistant: Michael Chen MD Immature granulocytes/100 WBC (Bld) 1 % High 0 [facility] Comment on above: Performed By: #### C DP, CMPX #### [place] [address] Urology Physician Assistant: Mihcael Chen MD Lymphocytes (Bld) [#/Vol] 0.95 10*3/uL Low 1.0-4.8 [facility] Comment on above: Performed By: #### C DP, CMPX #### [address] [address] Urology Physician Assistant: Michael Chen MD Lymphocytes/100 WBC (Bld) 11 % Low 24-44 [facility] Comment on above: Performed By: #### C DP, CMPX #### [address] [address] Urology Physician Assistant: Michael Chen MD Monocytes (Bld) [#/Vol] 0.43 10*3/uL Normal 0.1-0.8 [facility] Comment on above: Performed By: #### C DP, CMPX #### [address] [address] Urology Physician Assistant: Michael Chen MD Monocytes/100 WBC (Bld) 5 % Normal 1-7 [facility] Comment on above: Performed By: #### C DP, CMPX #### [address] [address] Urology Physician Assistant: Michael Chen MD Morphology Pedro (Bld) [Interp] Normal Normal [facility] Comment on above: Performed By: #### C DP, CMPX #### [address] [address] Urology Physician Assistant: iMchael Chen MD Neutrophil (Seg) 80 % High 36-[address] [facility] Comment on above: Performed By: #### C DP, CMPX #### [address] [address] Urology Physician Assistant: Michael Chen MD Platelet, Fluoresc. 288 k/uL Normal 138-453 [facility] Comment on above: Performed By: #### C DP, CMPX #### [facility] [address] [place] [address] Urology Physician Assistant: Michael Chen MD PLT, Immature Fract. 1.5 % Normal 1.1-10.3 [facility] Comment on above: Performed By: #### C DP, CMPX #### [facility] [address] [place] [address] Urology Physician Assistant: Michael Chen MD Erythrocyte distribution width (RBC) [Ratio] 13.6 % Normal 11.8-14.4 [facility] Comment on above: Performed By: #### C DP, CMPX #### [facility] [address] [place] [address] Urology Physician Assistant: Michael Chen MD Hematocrit (Bld) [Volume fraction] 25.9 % Low 36.3-47.1 [facility] Comment on above: Performed By: #### C DP, CMPX #### [facility] [address] [place] [address] Urology Physician Assistant: Michael Chen MD Hemoglobin (Bld) [Mass/Vol] 7.8 g/dL Low 11.9-15.1 [facility] Comment on above: Performed By: #### C DP, CMPX #### [facility] [address] [place] [address] Urology Physician Assistant: Michael Chen MD MCH (RBC) [Entitic mass] 29.8 pg Normal 25.2-33.5 [facility] Comment on above: Performed By: #### C DP, CMPX #### [facility] [address] [place] [address] Urology Physician Assistant: Michael Chen MD MCHC (RBC) [Mass/Vol] 30.1 g/dL Normal 28.4-34.8 [facility] Comment on above: Performed By: #### C DP, CMPX #### [address] [address] Urology Physician Assistant: Michael Chen MD MCV (RBC) [Entitic vol] 98.9 fL Normal 82.6-102.9 [facility] Comment on above: Performed By: #### C DP, CMPX #### [address] [address] Urology Physician Assistant: Michael Chen MD NRBC Automated 0.0 per 100 WBC Normal 0.0 [facility] Comment on above: Performed By: #### C DP, CMPX #### [address] [address] Urology Physician Assistant: Michael Chen MD Platelet Count See Reflexed IPF Result Normal 138-453 [facility] Comment on above: Performed By: #### C DP, CMPX #### [address] [address] Urology Physician Assistant: Michael Chen MD RBC (Bld) [#/Vol] 2.62 10*6/uL Low 3.95-5.11 [facility] Comment on above: Performed By: #### C DP, CMPX #### [address] [address] Urology Physician Assistant: Michael Chen MD WBC (Bld) [#/Vol] 8.6 10*3/uL Normal 3.5-11.3 [facility] Comment on above: Performed By: #### C DP, CMPX #### [address] [address] Urology Physician Assistant: Michael Chen MD CTA HEAD NECK W [...] Flavio Pierson MD 01/29/24 Final result Normal [facility] Comp Metabolic Pr/rfx MGon 0 01-29-2024 Albumin [Mass/Vol] 3.0 g/dL Low 3.5-5.2 [facility] Comment on above: Performed By: #### C DP, CMPX #### [address] [address] Urology Physician Assistant: Michael Chen MD Albumin/Glob Ratio 1.0 Normal 1.0-2.5 [facility] Comment on above: Performed By: #### C DP, CMPX #### [address] [address] Urology Physician Assistant: Michael Chen MD Alkaline Phos 205 U/L High 35-104 [facility] Comment on above: Performed By: #### C DP, CMPX #### [address] [address] Urology Physician Assistant: Michael Chen MD ALT [Catalytic activity/Vol] U/L Low 10-35 [facility] Comment on above: Performed By: #### C DP, CMPX #### [address] [address] Urology Physician Assistant: Michael Chen MD Anion gap [Moles/Vol] 11 mmol/L Normal 9-16 [facility] Comment on above: Performed By: #### C DP, CMPX #### [address] [address] Urology Physician Assistant: Michael Chen MD AST [Catalytic activity/Vol] 27 U/L Normal 10-35 [facility] Comment on above: Performed By: #### C DP, CMPX #### [address] [address] Urology Physician Assistant: Michael Chen MD Bilirubin [Mass/Vol] 0.2 mg/dL Normal 0.00-1.20 [facility] Comment on above: Performed By: #### C DP, CMPX #### [address] [address] Urology Physician Assistant: Michael Chen MD Calcium [Mass/Vol] 8.0 mg/dL Low 8.6-10.4 [facility] Comment on above: Performed By: #### C DP, CMPX #### [facility] [address] [place] [address] Urology Physician Assistant: Michael Chen MD Chloride [Moles/Vol] 101 mmol/L Normal 98-107 [facility] Comment on above: Performed By: #### C DP, CMPX #### [facility] [address] [place] [address] Urology Physician Assistant: iMchael Chen MD CO2 [Moles/Vol] 19 mmol/L Low 20-31 [facility] Comment on above: Performed By: #### C DP, CMPX #### [facility] [address] [place] [address] Urology Physician Assistant: Michael Chen MD Creatinine [Mass/Vol] 1.6 mg/dL High 0.50-0.90 [facility] Comment on above: Performed By: #### C DP, CMPX #### [address] [address] Urology Physician Assistant: Michael Chen MD GFR/1.73 sq M.predicted among non-blacks MDRD (S/P/Bld) [Vol rate/Area] 38 mL/min/{1.73_m2} Low >60 [facility] Comment on above: Result Comment: These [...] Performed By: #### C DP, CMPX #### [facility] [address] [place] [address] Urology Physician Assistant: Michael Chen MD Glucose [Mass/Vol] 90 mg/dL Normal 74-99 [facility] Comment on above: Performed By: #### C DP, CMPX #### [address] [address] Urology Physician Assistant: Michael Chen MD Potassium [Moles/Vol] 4.4 mmol/L Normal 3.7-5.3 [facility] Comment on above: Performed By: #### C DP, CMPX #### [address] [address] Urology Physician Assistant: Michael Chen MD Protein [Mass/Vol] 5.4 g/dL Low 6.6-8.7 [facility] Comment on above: Performed By: #### C DP, CMPX #### [address] [address] Urology Physician Assistant: Michael Chen MD Sodium [Moles/Vol] 131 mmol/L Low 136-145 [facility] Comment on above: Performed By: #### C DP, CMPX #### [address] [address] Urology Physician Assistant: Michael Chen MD Urea nitrogen [Mass/Vol] 46 mg/dL High 8-23 [facility] Comment on above: Performed By: #### C DP, CMPX #### [address] [address] Urology Physician Assistant: Michael Chen MD Magnesiumon 01-29-2024 Magnesium [Mass/Vol] 2.1 mg/dL Normal 1.6-2.4 [facility] Comment on above: Performed By: #### M G #### [address] [address] Urology Physician Assistant: Michael Chen MD Basic Metab w/rfx MGon 01-27 Anion gap [Moles/Vol] 10 mmol/L Normal 9-16 [facility] Comment on above: Performed By: #### C DP, CMPX #### [facility] [address] [place] [address] Urology Physician Assistant: Michael Chen MD Calcium [Mass/Vol] 7.5 mg/dL Low 8.6-10.4 [facility] Comment on above: Performed By: #### C DP, CMPX #### [facility] [address] [place] [address] Urology Physician Assistant: Michael Chen MD Chloride [Moles/Vol] 101 mmol/L Normal 98-107 [facility] Comment on above: Performed By: #### C DP, CMPX #### [facility] [address] [place] [address] Urology Physician Assistant: Michael Chen MD CO2 [Moles/Vol] 22 mmol/L Normal 20-31 [facility] Comment on above: Performed By: #### C DP, CMPX #### [facility] [address] [place] [address] Urology Physician Assistant: Michael Chen MD Creatinine [Mass/Vol] 1.8 mg/dL High 0.50-0.90 [facility] Comment on above: Performed By: #### C DP, CMPX #### [address] [address] Urology Physician Assistant: Michael Chen MD GFR/1.73 sq M.predicted among non-blacks MDRD (S/P/Bld) [Vol rate/Area] 33 mL/min/{1.73_m2} Low >60 [facility] Comment on above: Result Comment: These [...] Performed By: #### C DP, CMPX #### [address] [address] Urology Physician Assistant: Michael Chen MD Glucose [Mass/Vol] 92 mg/dL Normal 74-99 [facility] Comment on above: Performed By: #### C DP, CMPX #### [place] [address] Urology Physician Assistant: Michael Chen MD Potassium [Moles/Vol] 4.6 mmol/L Normal 3.7-5.3 [facility] Comment on above: Performed By: #### C DP, CMPX #### [place] [address] Urology Physician Assistant: Michael Chen MD Sodium [Moles/Vol] 133 mmol/L Low 136-145 [facility] Comment on above: Performed By: #### C DP CMPX #### [place] [address] Urology Physician Assistant: Michael Chen MD Urea nitrogen [Mass/Vol] 46 mg/dL High 8-23 [facility] Comment on above: Performed By: #### C DP CMPX #### [place] [address] Urology Physician Assistant: Michael Chen MD CBC with Diffon 01-28-2024 Abs. Basophil <0.03 Normal 0.00-0.20 [facility] Comment on above: Performed By: #### C DP, CMPX #### [facility] [address] [place] [address] Urology Physician Assistant: Michael Chen MD Abs.Imm.Granulocyte 0.13 k/uL Normal 0.00-0.30 [facility] Comment on above: Performed By: #### C DP, CMPX #### [address] [address] Urology Physician Assistant: Michael Chen MD Abs.Neutrophil (Seg) 4.37 k/uL Normal 1.50-8.10 [facility] Comment on above: Performed By: #### C DP, CMPX #### [address] [address] Urology Physician Assistant: Michael Chen MD Basophils/100 WBC (Bld) 0 % Normal 0-2 [facility] Comment on above: Performed By: #### C DP, CMPX #### [address] [address] Urology Physician Assistant: Michael Chen MD Eosinophils (Bld) [#/Vol] 0.25 10*3/uL Normal 0.00-0.44 [facility] Comment on above: Performed By: #### C DP, CMPX #### [place] [address] Urology Physician Assistant: Michael Chen MD Eosinophils/100 WBC (Bld) 4 % Normal 1-4 [facility] Comment on above: Performed By: #### C DP, CMPX #### [address] [address] Urology Physician Assistant: Michael Chen MD Immature granulocytes/100 WBC (Bld) 2 % High 0 [facility] Comment on above: Performed By: #### C DP, CMPX #### [address] [address] Urology Physician Assistant: Michael Chen MD Lymphocytes (Bld) [#/Vol] 1.15 10*3/uL Normal 1.10-3.70 [facility] Comment on above: Performed By: #### C DP, CMPX #### [place] [address] Urology Physician Assistant: Michael Chen MD Lymphocytes/100 WBC (Bld) 18 % Low 24-43 [facility] Comment on above: Performed By: #### C DP, CMPX #### [address] [address] Urology Physician Assistant: Michael Chen MD Monocytes (Bld) [#/Vol] 0.59 10*3/uL Normal 0.10-1.20 [facility] Comment on above: Performed By: #### C DP, CMPX #### [address] [address] Urology Physician Assistant: Michael Chen MD Monocytes/100 WBC (Bld) 9 % Normal 3-12 [facility] Comment on above: Performed By: #### C DP, CMPX #### [address] [address] Urology Physician Assistant: Michael Chen MD Neutrophil (Seg) 67 % High 36-[address] [facility] Comment on above: Performed By: #### C DP, CMPX #### [address] [address] Urology Physician Assistant: Michael Chen MD Erythrocyte distribution width (RBC) [Ratio] 13.6 % Normal 11.8-14.4 [facility] Comment on above: Performed By: #### C DP, CMPX #### [address] [address] Urology Physician Assistant: Michael Chen MD Hematocrit (Bld) [Volume fraction] 24.0 % Low 36.3-47.1 [facility] Comment on above: Performed By: #### C DP, CMPX #### [facility] [address] [place] [address] Urology Physician Assistant: Michael Chen MD Hemoglobin (Bld) [Mass/Vol] 7.1 g/dL Low 11.9-15.1 [facility] Comment on above: Performed By: #### C DP, CMPX #### [address] [address] Urology Physician Assistant: Michael Chen MD MCH (RBC) [Entitic mass] 29.6 pg Normal 25.2-33.5 [facility] Comment on above: Performed By: #### C DP, CMPX #### [address] [address] Urology Physician Assistant: Michael Chen MD MCHC (RBC) [Mass/Vol] 29.6 g/dL Normal 28.4-34.8 [facility] Comment on above: Performed By: #### C DP, CMPX #### [place] [address] Urology Physician Assistant: Michael Chen MD MCV (RBC) [Entitic vol] 100.0 fL Normal 82.6-102.9 [facility] Comment on above: Performed By: #### C DP, CMPX #### [address] [address] Urology Physician Assistant: Michael Chen MD NRBC Automated 0.0 per 100 WBC Normal 0.0 [facility] Comment on above: Performed By: #### C DP, CMPX #### [place] [address] Urology Physician Assistant: Michael Chen MD Platelet mean volume (Bld) [Entitic vol] 9.2 fL Normal 8.1-13.5 [facility] Comment on above: Performed By: #### C DP, CMPX #### [address] [address] Urology Physician Assistant: Michael Chen MD Platelets (Bld) [#/Vol] 222 10*3/uL Normal 138-453 [facility] Comment on above: Performed By: #### C DP, CMPX #### [address] [address] Urology Physician Assistant: Michael Chen MD RBC (Bld) [#/Vol] 2.40 10*6/uL Low 3.95-5.11 [facility] Comment on above: Performed By: #### C DP, CMPX #### [address] [address] Urology Physician Assistant: Michael Chen MD WBC (Bld) [#/Vol] 6.5 10*3/uL Normal 3.5-11.3 [facility] Comment on above: Performed By: #### C DP, CMPX #### [address] [address] Urology Physician Assistant: Michael Chen MD Magnesiumon 01-28-2024 Magnesium [Mass/Vol] 1.6 mg/dL Normal 1.6-2.4 [facility] Comment on above: Performed By: #### C DP, CMPX #### [address] [address] Urology Physician Assistant: Michael Chen MD Basic Metab w/rfx MGon 01-26 Anion gap [Moles/Vol] 11 mmol/L Normal 9-16 [facility] Comment on above: Performed By: #### C DP, CMPX #### [address] [address] Urology Physician Assistant: Michael Chen MD Calcium [Mass/Vol] 7.4 mg/dL Low 8.6-10.4 [facility] Comment on above: Performed By: #### C DP, CMPX #### [address] [address] Urology Physician Assistant: Michael Chen MD Chloride [Moles/Vol] 102 mmol/L Normal 98-107 [facility] Comment on above: Performed By: #### C DP, CMPX #### [address] [address] Urology Physician Assistant: Michael Chen MD CO2 [Moles/Vol] 21 mmol/L Normal 20-31 [facility] Comment on above: Performed By: #### C DP, CMPX #### [address] [address] Urology Physician Assistant: Michael Chen MD Creatinine [Mass/Vol] 1.6 mg/dL High 0.50-0.90 [facility] Comment on above: Performed By: #### C DP, CMPX #### [address] [address] Urology Physician Assistant: Michael Chen MD GFR/1.73 sq M.predicted among non-blacks MDRD (S/P/Bld) [Vol rate/Area] 36 mL/min/{1.73_m2} Low >60 [facility] Comment on above: Result Comment: These [...] Performed By: #### C DP, CMPX #### [address] [address] Urology Physician Assistant: Michael Chen MD Glucose [Mass/Vol] 169 mg/dL High 74-99 [facility] Comment on above: Performed By: #### C DP, CMPX #### [address] [address] Urology Physician Assistant: Michael Chen MD Potassium [Moles/Vol] 4.4 mmol/L Normal 3.7-5.3 [facility] Comment on above: Performed By: #### C DP, CMPX #### [place] [address] Urology Physician Assistant: Michael Chen MD Sodium [Moles/Vol] 134 mmol/L Low 136-145 [facility] Comment on above: Performed By: #### C DP, CMPX #### [place] [address] Urology Physician Assistant: Michael Chen MD Urea nitrogen [Mass/Vol] 42 mg/dL High 8-23 [facility] Comment on above: Performed By: #### C DP, CMPX #### [place] [address] Urology Physician Assistant: Michael Chen MD CBC with Diffon 01-27-2024 Abs. Basophil <0.03 Normal 0.00-0.20 [facility] Comment on above: Performed By: #### C DP, CMPX #### [place] [address] Urology Physician Assistant: Michael Chen MD Abs.Imm.Granulocyte 0.06 k/uL Normal 0.00-0.30 [facility] Comment on above: Performed By: #### C DP, CMPX #### [place] [address] Urology Physician Assistant: Michael Chen MD Abs.Neutrophil (Seg) 5.93 k/uL Normal 1.50-8.10 [facility] Comment on above: Performed By: #### C DP, CMPX #### [place] [address] Urology Physician Assistant: Michael Chen MD Basophils/100 WBC (Bld) 0 % Normal 0-2 [facility] Comment on above: Performed By: #### C DP, CMPX #### [address] [address] Urology Physician Assistant: Michael Chen MD Eosinophils (Bld) [#/Vol] 0.17 10*3/uL Normal 0.00-0.44 [facility] Comment on above: Performed By: #### C DP, CMPX #### [address] [address] Urology Physician Assistant: Michael Chen MD Eosinophils/100 WBC (Bld) 2 % Normal 1-4 [facility] Comment on above: Performed By: #### C DP, CMPX #### [place] [address] Urology Physician Assistant: Michael Chen MD Erythrocyte distribution width (RBC) [Ratio] 13.8 % Normal 11.8-14.4 [facility] Comment on above: Performed By: #### C DP, CMPX #### [place] [address] Urology Physician Assistant: Michael Chen MD Hematocrit (Bld) [Volume fraction] 26.3 % Low 36.3-47.1 [facility] Comment on above: Performed By: #### C DP, CMPX #### [address] [address] Urology Physician Assistant: Michael Chen MD Hemoglobin (Bld) [Mass/Vol] 7.8 g/dL Low 11.9-15.1 [facility] Comment on above: Performed By: #### C DP, CMPX #### [address] [address] Urology Physician Assistant: Michael Chen MD Immature granulocytes/100 WBC (Bld) 1 % High 0 [facility] Comment on above: Performed By: #### C DP, CMPX #### [address] [address] Urology Physician Assistant: Michael Chen MD Lymphocytes (Bld) [#/Vol] 0.79 10*3/uL Low 1.10-3.70 [facility] Comment on above: Performed By: #### C DP, CMPX #### [address] [address] Urology Physician Assistant: Micahel Chen MD Lymphocytes/100 WBC (Bld) 11 % Low 24-43 [facility] Comment on above: Performed By: #### C DP, CMPX #### [place] [address] Urology Physician Assistant: Michael Chen MD MCH (RBC) [Entitic mass] 29.8 pg Normal 25.2-33.5 [facility] Comment on above: Performed By: #### C DP, CMPX #### [place] [address] Urology Physician Assistant: Michael Chen MD MCHC (RBC) [Mass/Vol] 29.7 g/dL Normal 28.4-34.8 [facility] Comment on above: Performed By: #### C DP, CMPX #### [address] [address] Urology Physician Assistant: Michael Chen MD MCV (RBC) [Entitic vol] 100.4 fL Normal 82.6-102.9 [facility] Comment on above: Performed By: #### C DP, CMPX #### [address] [address] Urology Physician Assistant: Michael Chen MD Monocytes (Bld) [#/Vol] 0.38 10*3/uL Normal 0.10-1.20 [facility] Comment on above: Performed By: #### C DP, CMPX #### [address] [address] Urology Physician Assistant: Michael Chen MD Monocytes/100 WBC (Bld) 5 % Normal 3-12 [facility] Comment on above: Performed By: #### C DP, CMPX #### [address] [address] Urology Physician Assistant: Michael Chen MD Neutrophil (Seg) 81 % High 36-[address] [facility] Comment on above: Performed By: #### C DP, CMPX #### [address] [address] Urology Physician Assistant: Michael Chen MD NRBC Automated 0.0 per 100 WBC Normal 0.0 [facility] Comment on above: Performed By: #### C DP, CMPX #### [address] [address] Urology Physician Assistant: Michael Chen MD Platelet mean volume (Bld) [Entitic vol] 9.6 fL Normal 8.1-13.5 [facility] Comment on above: Performed By: #### C DP, CMPX #### [address] [address] Urology Physician Assistant: Michael Chen MD Platelets (Bld) [#/Vol] 239 10*3/uL Normal 138-453 [facility] Comment on above: Performed By: #### C DP, CMPX #### [address] [address] Urology Physician Assistant: Michael Chen MD RBC (Bld) [#/Vol] 2.62 10*6/uL Low 3.95-5.11 [facility] Comment on above: Performed By: #### C DP, CMPX #### [address] [address] Urology Physician Assistant: Michael Chen MD WBC (Bld) [#/Vol] 7.3 10*3/uL Normal 3.5-11.3 [facility] Comment on above: Performed By: #### C DP, CMPX #### [facility] [place] [id number] Urology Physician Assistant: Michael Chen MD CT CERVICAL SPINE WO ROXI Ton 01-27-2024 CT CERVICAL SPINE WO CONTRAST [...] Alex Hickman MD 01/27/24 Final result Normal [facility] Basic Metab w/rfx MGon 01-25 Anion gap [Moles/Vol] 8 mmol/L Low 9-16 [facility] Comment on above: Performed By: #### B MPX, CDP #### [address] [address] Urology Physician Assistant: Michael Chen MD Calcium [Mass/Vol] 7.8 mg/dL Low 8.6-10.4 [facility] Comment on above: Performed By: #### B MPX, CDP #### [address] [address] Urology Physician Assistant: Michael Chen MD Chloride [Moles/Vol] 104 mmol/L Normal 98-107 [facility] Comment on above: Performed By: #### B MPX, CDP #### [facility] [address] [place] [address] Urology Physician Assistant: Michael Chen MD CO2 [Moles/Vol] 23 mmol/L Normal 20-31 [facility] Comment on above: Performed By: #### B MPX, CDP #### [facility] [address] [place] [address] Urology Physician Assistant: Michael Chen MD Creatinine [Mass/Vol] 1.6 mg/dL High 0.50-0.90 [facility] Comment on above: Performed By: #### B MPX, CDP #### [facility] [address] [place] [address] Urology Physician Assistant: Michael Chen MD GFR/1.73 sq M.predicted among non-blacks MDRD (S/P/Bld) [Vol rate/Area] 38 mL/min/{1.73_m2} Low >60 [facility] Comment on above: Result Comment: These [...] Performed By: #### B MPX, CDP #### [facility] [address] [place] [address] Urology Physician Assistant: Michael Chen MD Glucose [Mass/Vol] 109 mg/dL High 74-99 [facility] Comment on above: Performed By: #### B MPX, CDP #### [facility] [address] [place] [address] Urology Physician Assistant: Michael Chen MD Potassium [Moles/Vol] 5.3 mmol/L Normal 3.7-5.3 [facility] Comment on above: Performed By: #### B MPX, CDP #### [facility] [address] [place] [address] Urology Physician Assistant: Michael Chen MD Sodium [Moles/Vol] 135 mmol/L Low 136-145 [facility] Comment on above: Performed By: #### B MPX, CDP #### [facility] [address] [place] [address] Urology Physician Assistant: Michael Chen MD Urea nitrogen [Mass/Vol] 40 mg/dL High 8-23 [facility] Comment on above: Performed By: #### B MPX, CDP #### [facility] [address] [place] [address] Urology Physician Assistant: Michael Chen MD Anion gap [Moles/Vol] 11 mmol/L Normal 9-16 [facility] Comment on above: Performed By: #### B MPX, CDP #### [facility] [address] [place] [address] Urology Physician Assistant: Michael Chen MD Calcium [Mass/Vol] 7.6 mg/dL Low 8.6-10.4 [facility] Comment on above: Performed By: #### B MPX, CDP #### [facility] [address] [place] [address] Urology Physician Assistant: Michael Chen MD Chloride [Moles/Vol] 102 mmol/L Normal 98-107 [facility] Comment on above: Performed By: #### B MPX, CDP #### [facility] [address] [place] [address] Urology Physician Assistant: Michael Chen MD CO2 [Moles/Vol] 20 mmol/L Normal 20-31 [facility] Comment on above: Performed By: #### B MPX, CDP #### [facility] [address] [place] [address] Urology Physician Assistant: Michael Chen MD Creatinine [Mass/Vol] 1.7 mg/dL High 0.50-0.90 [facility] Comment on above: Performed By: #### B MPX, CDP #### [address] [address] Urology Physician Assistant: Michael Chen MD GFR/1.73 sq M.predicted among non-blacks MDRD (S/P/Bld) [Vol rate/Area] 35 mL/min/{1.73_m2} Low >60 [facility] Comment on above: Result Comment: These [...] By: #### B MPX, CDP #### [facility] [address] [place] [address] Urology Physician Assistant: Michael Chen MD Glucose [Mass/Vol] 106 mg/dL High 74-99 [facility] Comment on above: Performed By: #### B MPX, CDP #### [facility] [address] [place] [address] Urology Physician Assistant: Michael Chen MD Potassium [Moles/Vol] 5.0 mmol/L Normal 3.7-5.3 [facility] Comment on above: Performed By: #### B MPX, CDP #### [facility] [address] [place] [address] Urology Physician Assistant: Michael Chen MD Sodium [Moles/Vol] 133 mmol/L Low 136-145 [facility] Comment on above: Performed By: #### B MPX, CDP #### [facility] [address] [place] [address] Urology Physician Assistant: Michael Chen MD Urea nitrogen [Mass/Vol] 46 mg/dL High 8-23 [facility] Comment on above: Performed By: #### B MPX, CDP #### [facility] [address] [place] [address] Urology Physician Assistant: Mcihael Chen MD CBC with Diffon 01-26-2024 Abs. Basophil <0.03 Normal 0.00-0.20 [facility] Comment on above: Performed By: #### B MPX, CDP #### [facility] [address] [place] [address] Urology Physician Assistant: Michael Chen MD Abs.Imm.Granulocyte 0.13 k/uL Normal 0.00-0.30 [facility] Comment on above: Performed By: #### B MPX, CDP #### [facility] [address] [place] [address] Urology Physician Assistant: Michael Chen MD Abs.Neutrophil (Seg) 8.21 k/uL High 1.50-8.10 [facility] Comment on above: Performed By: #### B MPX, CDP #### [address] [address] Urology Physician Assistant: Michael Chen MD Basophils/100 WBC (Bld) 0 % Normal 0-2 [facility] Comment on above: Performed By: #### B MPX, CDP #### [address] [address] Urology Physician Assistant: Michael Chen MD Eosinophils (Bld) [#/Vol] 0.19 10*3/uL Normal 0.00-0.44 [facility] Comment on above: Performed By: #### B MPX, CDP #### [address] [address] Urology Physician Assistant: Michael Chen MD Eosinophils/100 WBC (Bld) 2 % Normal 1-4 [facility] Comment on above: Performed By: #### B MPX, CDP #### [facility] [address] [place] [address] Urology Physician Assistant: Michael Chen MD Erythrocyte distribution width (RBC) [Ratio] 13.9 % Normal 11.8-14.4 [facility] Comment on above: Performed By: #### B MPX, CDP #### [facility] [address] [place] [address] Urology Physician Assistant: Michael Chen MD Hematocrit (Bld) [Volume fraction] 28.3 % Low 36.3-47.1 [facility] Comment on above: Performed By: #### B MPX, CDP #### [facility] [address] [place] [address] Urology Physician Assistant: Michael Chen MD Hemoglobin (Bld) [Mass/Vol] 8.6 g/dL Low 11.9-15.1 [facility] Comment on above: Performed By: #### B MPX, CDP #### [facility] [address] [place] [address] Urology Physician Assistant: Michael Chen MD Immature granulocytes/100 WBC (Bld) 1 % High 0 [facility] Comment on above: Performed By: #### B MPX, CDP #### [address] [address] Urology Physician Assistant: Michael Chen MD Lymphocytes (Bld) [#/Vol] 1.09 10*3/uL Low 1.10-3.70 [facility] Comment on above: Performed By: #### B MPX, CDP #### [address] [address] Urology Physician Assistant: Michael Chen MD Lymphocytes/100 WBC (Bld) 10 % Low 24-43 [facility] Comment on above: Performed By: #### B MPX, CDP #### [address] [address] Urology Physician Assistant: Michael Chen MD MCH (RBC) [Entitic mass] 29.5 pg Normal 25.2-33.5 [facility] Comment on above: Performed By: #### B MPX, CDP #### [address] [address] Urology Physician Assistant: Michael Chen MD MCHC (RBC) [Mass/Vol] 30.4 g/dL Normal 28.4-34.8 [facility] Comment on above: Performed By: #### B MPX, CDP #### [address] [address] Urology Physician Assistant: Michael Chen MD MCV (RBC) [Entitic vol] 96.9 fL Normal 82.6-102.9 [facility] Comment on above: Performed By: #### B MPX, CDP #### [address] [address] Urology Physician Assistant: Michael Chen MD Monocytes (Bld) [#/Vol] 0.85 10*3/uL Normal 0.10-1.20 [facility] Comment on above: Performed By: #### B MPX, CDP #### [address] [address] Urology Physician Assistant: Michael Chen MD Monocytes/100 WBC (Bld) 8 % Normal 3-12 [facility] Comment on above: Performed By: #### B MPX, CDP #### [address] [address] Urology Physician Assistant: Michael Chen MD Neutrophil (Seg) 79 % High 36-[address] [facility] Comment on above: Performed By: #### B MPX, CDP #### [address] [address] Urology Physician Assistant: Michael Chen MD NRBC Automated 0.0 per 100 WBC Normal 0.0 [facility] Comment on above: Performed By: #### B MPX, CDP #### [address] [address] Urology Physician Assistant: Michael Chen MD Platelet mean volume (Bld) [Entitic vol] 9.7 fL Normal 8.1-13.5 [facility] Comment on above: Performed By: #### B MPX, CDP #### [address] [address] Urology Physician Assistant: Michael Chen MD Platelets (Bld) [#/Vol] 270 10*3/uL Normal 138-453 [facility] Comment on above: Performed By: #### B MPX, CDP #### [facility] [address] [place] [address] Urology Physician Assistant: Michael Chen MD RBC (Bld) [#/Vol] 2.92 10*6/uL Low 3.95-5.11 [facility] Comment on above: Performed By: #### B MPX, CDP #### [facility] [address] [place] [address] Urology Physician Assistant: Michael Chen MD WBC (Bld) [#/Vol] 10.5 10*3/uL Normal 3.5-11.3 [facility] Comment on above: Performed By: #### B MPX, CDP #### [facility] [address] [place] [address] Urology Physician Assistant: Michael Chen MD Abs. Basophil 0.03 k/uL Normal 0.00-0.20 [facility] Comment on above: Performed By: #### B MPX, CDP #### [facility] [address] [place] [address] Urology Physician Assistant: Michael Chen MD Abs.Imm.Granulocyte 0.08 k/uL Normal 0.00-0.30 [facility] Comment on above: Performed By: #### B MPX, CDP #### [address] [address] Urology Physician Assistant: Michael Chen MD Abs.Neutrophil (Seg) 12.75 k/uL High 1.50-8.10 [facility] Comment on above: Performed By: #### B MPX, CDP #### [facility] [address] [place] [address] Urology Physician Assistant: Michael Chen MD Basophils/100 WBC (Bld) 0 % Normal 0-2 [facility] Comment on above: Performed By: #### B MPX, CDP #### [facility] [address] [place] [address] Urology Physician Assistant: Michael Chen MD Eosinophils (Bld) [#/Vol] 0.16 10*3/uL Normal 0.00-0.44 [facility] Comment on above: Performed By: #### B MPX, CDP #### [facility] [address] [place] [address] Urology Physician Assistant: Michael Chen MD Eosinophils/100 WBC (Bld) 1 % Normal 1-4 [facility] Comment on above: Performed By: #### B MPX, CDP #### [address] [address] Urology Physician Assistant: Michael Chen MD Erythrocyte distribution width (RBC) [Ratio] 13.7 % Normal 11.8-14.4 [facility] Comment on above: Performed By: #### B MPX, CDP #### [facility] [address] [place] [address] Urology Physician Assistant: Michael Chen MD Hematocrit (Bld) [Volume fraction] 28.8 % Low 36.3-47.1 [facility] Comment on above: Performed By: #### B MPX, CDP #### [facility] [address] [place] [address] Urology Physician Assistant: Michael Chen MD Hemoglobin (Bld) [Mass/Vol] 8.8 g/dL Low 11.9-15.1 [facility] Comment on above: Performed By: #### B MPX, CDP #### [facility] [address] [place] [address] Urology Physician Assistant: Michael Chen MD Immature granulocytes/100 WBC (Bld) 1 % High 0 [facility] Comment on above: Performed By: #### B MPX, CDP #### [facility] [address] [place] [address] Urology Physician Assistant: Michael Chen MD Lymphocytes (Bld) [#/Vol] 1.15 10*3/uL Normal 1.10-3.70 [facility] Comment on above: Performed By: #### B MPX, CDP #### [address] [address] Urology Physician Assistant: Michael Chen MD Lymphocytes/100 WBC (Bld) 8 % Low 24-43 [facility] Comment on above: Performed By: #### B MPX, CDP #### [address] [address] Urology Physician Assistant: Michael Chen MD MCH (RBC) [Entitic mass] 29.6 pg Normal 25.2-33.5 [facility] Comment on above: Performed By: #### B MPX, CDP #### [address] [address] Urology Physician Assistant: Michael Chen MD MCHC (RBC) [Mass/Vol] 30.6 g/dL Normal 28.4-34.8 [facility] Comment on above: Performed By: #### B MPX, CDP #### [address] [address] Urology Physician Assistant: Michael Chen MD MCV (RBC) [Entitic vol] 97.0 fL Normal 82.6-102.9 [facility] Comment on above: Performed By: #### B MPX, CDP #### [address] [address] Urology Physician Assistant: Michael Chen MD Monocytes (Bld) [#/Vol] 0.77 10*3/uL Normal 0.10-1.20 [facility] Comment on above: Performed By: #### B MPX, CDP #### [address] [address] Urology Physician Assistant: Michael Chen MD Monocytes/100 WBC (Bld) 5 % Normal 3-12 [facility] Comment on above: Performed By: #### B MPX, CDP #### [address] [address] Urology Physician Assistant: Michael Chen MD Neutrophil (Seg) 85 % High 36-[address] [facility] Comment on above: Performed By: #### B MPX, CDP #### [address] [address] Urology Physician Assistant: Michael Chen MD NRBC Automated 0.0 per 100 WBC Normal 0.0 [facility] Comment on above: Performed By: #### B MPX, CDP #### [address] [address] Urology Physician Assistant: Michael Chen MD Platelet mean volume (Bld) [Entitic vol] 9.1 fL Normal 8.1-13.5 [facility] Comment on above: Performed By: #### B MPX, CDP #### [address] [address] Urology Physician Assistant: Michael Chen MD Platelets (Bld) [#/Vol] 269 10*3/uL Normal 138-453 [facility] Comment on above: Performed By: #### B MPX, CDP #### [address] [address] Urology Physician Assistant: Michael Chen MD RBC (Bld) [#/Vol] 2.97 10*6/uL Low 3.95-5.11 [facility] Comment on above: Performed By: #### B MPX, CDP #### [address] [address] Urology Physician Assistant: Michael Chen MD WBC (Bld) [#/Vol] 14.9 10*3/uL High 3.5-11.3 [facility] Comment on above: Performed By: #### B MPX, CDP #### [facility] [address] [place] [address] [phone] Urology Physician Assistant: Michael Chen MD Cult,Urineon 01-26-2024 Cult,Urine Specimen Description .INDWELLING CATH URINE Special Requests FIRST INSERTION Culture NO GROWTH Report Status FINAL 01/26/2024 Normal [facility] Comment on above: Performed By: #### U RC #### [address] [address] Urology Physician Assistant: Michael Chen MD XR CERVICAL SPINE (2-3 [...] DO 01/26/24 Edited Result - FINAL Normal [facility] Basic Metab w/rfx MGon 01-24 Anion gap [Moles/Vol] 9 mmol/L Normal 9-16 [facility] Comment on above: Performed By: #### C DP, BMPX #### [facility] [address] [place] [address] Urology Physician Assistant: Michael Chen MD Calcium [Mass/Vol] 7.9 mg/dL Low 8.6-10.4 [facility] Comment on above: Performed By: #### C DP, BMPX #### [facility] [address] [place] [address] Urology Physician Assistant: Michael Chen MD Chloride [Moles/Vol] 105 mmol/L Normal 98-107 [facility] Comment on above: Performed By: #### C DP, BMPX #### [facility] [address] [place] [address] Urology Physician Assistant: Michael Chen MD CO2 [Moles/Vol] 22 mmol/L Normal 20-31 [facility] Comment on above: Performed By: #### C DP, BMPX #### [address] [address] Urology Physician Assistant: Michael Chen MD Creatinine [Mass/Vol] 1.7 mg/dL High 0.50-0.90 [facility] Comment on above: Performed By: #### C DP, BMPX #### [address] [address] Urology Physician Assistant: Michael Chen MD GFR/1.73 sq M.predicted among non-blacks MDRD (S/P/Bld) [Vol rate/Area] 33 mL/min/{1.73_m2} Low >60 [facility] Comment on above: Result Comment: These [...] Performed By: #### C DP, BMPX #### [facility] [address] [place] [address] Urology Physician Assistant: Michael Chen MD Glucose [Mass/Vol] 104 mg/dL High 74-99 [facility] Comment on above: Performed By: #### C DP, BMPX #### [address] [address] Urology Physician Assistant: Michael Chen MD Potassium [Moles/Vol] 5.1 mmol/L Normal 3.7-5.3 [facility] Comment on above: Performed By: #### C DP, BMPX #### [address] [address] Urology Physician Assistant: Michael Chen MD Sodium [Moles/Vol] 136 mmol/L Normal 136-145 [facility] Comment on above: Performed By: #### C OBIE, BMPX #### [address] [address] Urology Physician Assistant: Michael Chen MD Urea nitrogen [Mass/Vol] 51 mg/dL High 8-23 [facility] Comment on above: Performed By: #### C OBIE BMPX #### [address] [address] Urology Physician Assistant: Michael Chen MD CBC with Diffon 01-25-2024 Abs. Basophil <0.03 Normal 0.00-0.20 [facility] Comment on above: Performed By: #### C DP, BMPX #### [facility] [address] [place] [address] Urology Physician Assistant: Michael Chen MD Abs.Imm.Granulocyte 0.03 k/uL Normal 0.00-0.30 [facility] Comment on above: Performed By: #### C DP, BMPX #### [facility] [address] [place] [address] Urology Physician Assistant: Michael Chen MD Abs.Neutrophil (Seg) 3.64 k/uL Normal 1.50-8.10 [facility] Comment on above: Performed By: #### C DP, BMPX #### [place] [address] Urology Physician Assistant: Michael Chen MD Basophils/100 WBC (Bld) 0 % Normal 0-2 [facility] Comment on above: Performed By: #### C DP, BMPX #### [place] [address] Urology Physician Assistant: Michael Chen MD Eosinophils (Bld) [#/Vol] 0.23 10*3/uL Normal 0.00-0.44 [facility] Comment on above: Performed By: #### C DP, BMPX #### [place] [address] Urology Physician Assistant: Michael Chen MD Eosinophils/100 WBC (Bld) 4 % Normal 1-4 [facility] Comment on above: Performed By: #### C DP, BMPX #### [place] [address] Urology Physician Assistant: Michael Chen MD Erythrocyte distribution width (RBC) [Ratio] 13.7 % Normal 11.8-14.4 [facility] Comment on above: Performed By: #### C DP, BMPX #### [place] [address] Urology Physician Assistant: Michael Chen MD Hematocrit (Bld) [Volume fraction] 26.8 % Low 36.3-47.1 [facility] Comment on above: Performed By: #### C DP, BMPX #### [place] [address] Urology Physician Assistant: Michael Chen MD Hemoglobin (Bld) [Mass/Vol] 8.0 g/dL Low 11.9-15.1 [facility] Comment on above: Performed By: #### C DP, BMPX #### [address] [address] Urology Physician Assistant: Michael Chen MD Immature granulocytes/100 WBC (Bld) 1 % High 0 [facility] Comment on above: Performed By: #### C DP, BMPX #### [place] [address] Urology Physician Assistant: Michael Chen MD Lymphocytes (Bld) [#/Vol] 1.38 10*3/uL Normal 1.10-3.70 [facility] Comment on above: Performed By: #### C DP, BMPX #### [place] [address] Urology Physician Assistant: Michael Chen MD Lymphocytes/100 WBC (Bld) 24 % Normal 24-43 [facility] Comment on above: Performed By: #### C DP, BMPX #### [address] [address] Urology Physician Assistant: Michael Chen MD MCH (RBC) [Entitic mass] 29.3 pg Normal 25.2-33.5 [facility] Comment on above: Performed By: #### C DP, BMPX #### [address] [address] Urology Physician Assistant: Michael Chen MD MCHC (RBC) [Mass/Vol] 29.9 g/dL Normal 28.4-34.8 [facility] Comment on above: Performed By: #### C DP, BMPX #### [place] [address] Urology Physician Assistant: Michael Chen MD MCV (RBC) [Entitic vol] 98.2 fL Normal 82.6-102.9 [facility] Comment on above: Performed By: #### C DP, BMPX #### [address] [address] Urology Physician Assistant: Michael Chen MD Monocytes (Bld) [#/Vol] 0.58 10*3/uL Normal 0.10-1.20 [facility] Comment on above: Performed By: #### C DP, BMPX #### [address] [address] Urology Physician Assistant: Michael Chen MD Monocytes/100 WBC (Bld) 10 % Normal 3-12 [facility] Comment on above: Performed By: #### C DP, BMPX #### [address] [address] Urology Physician Assistant: Michael Chen MD Neutrophil (Seg) 61 % Normal 36-[address] [facility] Comment on above: Performed By: #### C DP, BMPX #### [address] [address] Urology Physician Assistant: Michael Chen MD NRBC Automated 0.0 per 100 WBC Normal 0.0 [facility] Comment on above: Performed By: #### C DP, BMPX #### [address] [address] Urology Physician Assistant: Michael Chen MD Platelet mean volume (Bld) [Entitic vol] 9.1 fL Normal 8.1-13.5 [facility] Comment on above: Performed By: #### C DP, BMPX #### [address] [address] Urology Physician Assistant: Michael Chen MD Platelets (Bld) [#/Vol] 227 10*3/uL Normal 138-453 [facility] Comment on above: Performed By: #### C DP, BMPX #### [address] [address] Urology Physician Assistant: Michael Chen MD RBC (Bld) [#/Vol] 2.73 10*6/uL Low 3.95-5.11 [facility] Comment on above: Performed By: #### C DP, BMPX #### [address] [address] Urology Physician Assistant: Michael Chen MD WBC (Bld) [#/Vol] 5.9 10*3/uL Normal 3.5-11.3 [facility] Comment on above: Performed By: #### C DP, BMPX #### [address] [address] Urology Physician Assistant: Michael Chen MD FLUORO FOR SURGICAL PROCEDUR ESon 01-25-2024 FLUORO FOR SURGICAL PROCEDURES Radiology exam is complete. No Radiologist dictation. Please follow up with ordering provider. Final result Normal [facility] Hgb/Hcton 01-25-2024 Hematocrit (Bld) [Volume fraction] 30.8 % Low 36.3-47.1 [facility] Comment on above: Performed By: #### B MPX, CDP #### [address] [address] Urology Physician Assistant: Michael Chen MD Hemoglobin (Bld) [Mass/Vol] 9.5 g/dL Low 11.9-15.1 [facility] Comment on above: Performed By: #### B MPX, CDP #### [address] [address] Urology Physician Assistant: Michael Chen MD Basic Metab w/rfx MGon 01-23 Anion gap [Moles/Vol] 10 mmol/L Normal 9-16 [facility] Comment on above: Performed By: #### B MPX, CDP #### [address] [address] Urology Physician Assistant: Michael Chen MD Calcium [Mass/Vol] 8.2 mg/dL Low 8.6-10.4 [facility] Comment on above: Performed By: #### B MPX, CDP #### [facility] [address] [place] [address] Urology Physician Assistant: Michael Chen MD Chloride [Moles/Vol] 104 mmol/L Normal 98-107 [facility] Comment on above: Performed By: #### B MPX, CDP #### [facility] [address] [place] [address] Urology Physician Assistant: Michael Chen MD CO2 [Moles/Vol] 22 mmol/L Normal 20-31 [facility] Comment on above: Performed By: #### B MPX, CDP #### [address] [address] Urology Physician Assistant: Michael Chen MD Creatinine [Mass/Vol] 1.7 mg/dL High 0.50-0.90 [facility] Comment on above: Performed By: #### B MPX, CDP #### [address] [address] Urology Physician Assistant: Michael Chen MD GFR/1.73 sq M.predicted among non-blacks MDRD (S/P/Bld) [Vol rate/Area] 34 mL/min/{1.73_m2} Low >60 [facility] Comment on above: Result Comment: These [...] Performed By: #### B MPX, CDP #### [address] [address] Urology Physician Assistant: Michael Chen MD Glucose [Mass/Vol] 100 mg/dL High 74-99 [facility] Comment on above: Performed By: #### B MPX, CDP #### [facility] [address] [place] [address] Urology Physician Assistant: Michael Chen MD Potassium [Moles/Vol] 4.9 mmol/L Normal 3.7-5.3 [facility] Comment on above: Result Comment: SPEC IMEN SLIGHTLY HEMOLYZED, RESULTS MAY BE ADVERSELY AFFECTED. Performed By: #### B MPX, CDP #### [facility] [address] [place] [address] Urology Physician Assistant: Michael Chen MD Sodium [Moles/Vol] 136 mmol/L Normal 136-145 [facility] Comment on above: Performed By: #### B MPX, CDP #### [facility] [address] [place] [address] Urology Physician Assistant: Michael Chen MD Urea nitrogen [Mass/Vol] 51 mg/dL High 8-23 [facility] Comment on above: Performed By: #### B MPX, CDP #### [facility] [address] [place] [address] Urology Physician Assistant: Michael Chen MD CBC with Diffon 01-24-2024 Abs. Basophil 0.03 k/uL Normal 0.00-0.20 [facility] Comment on above: Performed By: #### B MPX, CDP #### [facility] [address] [place] [address] Urology Physician Assistant: Michael Chen MD Abs.Imm.Granulocyte 0.11 k/uL Normal 0.00-0.30 [facility] Comment on above: Performed By: #### B MPX, CDP #### [facility] [address] [place] [address] Urology Physician Assistant: Michael Chen MD Abs.Neutrophil (Seg) 3.73 k/uL Normal 1.50-8.10 [facility] Comment on above: Performed By: #### B MPX, CDP #### [facility] [address] [place] [address] Urology Physician Assistant: Michael Chen MD Basophils/100 WBC (Bld) 1 % Normal 0-2 [facility] Comment on above: Performed By: #### B MPX, CDP #### [facility] [address] [place] [address] Urology Physician Assistant: Michael Chen MD Eosinophils (Bld) [#/Vol] 0.24 10*3/uL Normal 0.00-0.44 [facility] Comment on above: Performed By: #### B MPX, CDP #### [facility] [address] [place] [address] Urology Physician Assistant: Michael Chen MD Eosinophils/100 WBC (Bld) 4 % Normal 1-4 [facility] Comment on above: Performed By: #### B MPX, CDP #### [facility] [address] [place] [address] Urology Physician Assistant: Michael Chen MD Erythrocyte distribution width (RBC) [Ratio] 13.8 % Normal 11.8-14.4 [facility] Comment on above: Performed By: #### B MPX, CDP #### [facility] [address] [place] [address] Urology Physician Assistant: Michael Chen MD Hematocrit (Bld) [Volume fraction] 29.4 % Low 36.3-47.1 [facility] Comment on above: Performed By: #### B MPX, CDP #### [facility] [address] [place] [address] Urology Physician Assistant: Michael Chen MD Hemoglobin (Bld) [Mass/Vol] 9.2 g/dL Low 11.9-15.1 [facility] Comment on above: Performed By: #### B MPX, CDP #### [facility] [address] [place] [address] Urology Physician Assistant: Michael Chen MD Immature granulocytes/100 WBC (Bld) 2 % High 0 [facility] Comment on above: Performed By: #### B MPX, CDP #### [facility] [address] [place] [address] Urology Physician Assistant: Michael Chen MD Lymphocytes (Bld) [#/Vol] 1.63 10*3/uL Normal 1.10-3.70 [facility] Comment on above: Performed By: #### B MPX, CDP #### [address] [address] Urology Physician Assistant: Michael Chen MD Lymphocytes/100 WBC (Bld) 25 % Normal 24-43 [facility] Comment on above: Performed By: #### B MPX, CDP #### [address] [address] Urology Physician Assistant: Michael Chen MD MCH (RBC) [Entitic mass] 30.8 pg Normal 25.2-33.5 [facility] Comment on above: Performed By: #### B MPX, CDP #### [address] [address] Urology Physician Assistant: Michael Chen MD MCHC (RBC) [Mass/Vol] 31.3 g/dL Normal 28.4-34.8 [facility] Comment on above: Performed By: #### B MPX, CDP #### [facility] [address] [place] [address] Urology Physician Assistant: Michael Chen MD MCV (RBC) [Entitic vol] 98.3 fL Normal 82.6-102.9 [facility] Comment on above: Performed By: #### B MPX, CDP #### [address] [address] Urology Physician Assistant: Michael Chen MD Monocytes (Bld) [#/Vol] 0.74 10*3/uL Normal 0.10-1.20 [facility] Comment on above: Performed By: #### B MPX, CDP #### [address] [address] Urology Physician Assistant: Michael Chen MD Monocytes/100 WBC (Bld) 11 % Normal 3-12 [facility] Comment on above: Performed By: #### B MPX, CDP #### [address] [address] Urology Physician Assistant: Michael Chen MD Neutrophil (Seg) 57 % Normal 36-[address] [facility] Comment on above: Performed By: #### B MPX, CDP #### [address] [address] Urology Physician Assistant: Michael Chen MD NRBC Automated 0.0 per 100 WBC Normal 0.0 [facility] Comment on above: Performed By: #### B MPX, CDP #### [address] [address] Urology Physician Assistant: Michael Chen MD Platelet mean volume (Bld) [Entitic vol] 9.9 fL Normal 8.1-13.5 [facility] Comment on above: Performed By: #### B MPX, CDP #### [address] [address] Urology Physician Assistant: Michael Chen MD Platelets (Bld) [#/Vol] 234 10*3/uL Normal 138-453 [facility] Comment on above: Performed By: #### B MPX, CDP #### [address] [address] Urology Physician Assistant: Michael Chen MD RBC (Bld) [#/Vol] 2.99 10*6/uL Low 3.95-5.11 [facility] Comment on above: Performed By: #### B MPX, CDP #### [address] [address] Urology Physician Assistant: Michael Chen MD WBC (Bld) [#/Vol] 6.5 10*3/uL Normal 3.5-11.3 [facility] Comment on above: Performed By: #### B MPX, CDP #### [address] [address] Urology Physician Assistant: Michael Chen MD REINALDO Screen w/reflexon 2023 REINALDO Screen Negative Normal NEG [facility] Comment on above: Performed By: #### B MPX, CDP #### [facility] [address] [place] [address] Urology Physician Assistant: Michael Chen MD Anti-dsDNA <0.5 Normal <10.0 [facility] Comment on above: Result Comment: Reference Range: <10.0 Negative 10.0-15.0 Equivocal >15.0 Positive Performed By: #### B MPX, CDP #### [address] [address] Urology Physician Assistant: Michael Chen MD CHINA Screen 0.1 U/mL Normal <0.7 [facility] Comment on above: Result Comment: Reference Range: <0.7 Negative 0.7-1.0 Equivocal >1.0 Positive [place] Screen includes U1RNP,RNP70,Sm,Ro(SS-A),La(SS-B),CENP,Scl-70,Elli-1 Performed By: #### B MPX, CDP #### [address] [address] Urology Physician Assistant: Michael Chen MD REINALDO Screen Negative Normal NEG [facility] Comment on above: Performed By: #### C DP, CMPX #### [address] [id number] Urology Physician Assistant: Michael Chen MD Anti-dsDNA 0.7 IU/mL Normal <10.0 [facility] Comment on above: Result Comment: Reference Range: <10.0 Negative 10.0-15.0 Equivocal >15.0 Positive Performed By: #### C DP, CMPX #### [place] [id number] Urology Physician Assistant: Michael Chen MD CHINA Screen 0.2 U/mL Normal <0.7 [facility] Comment on above: Result Comment: Reference Range: <0.7 Negative 0.7-1.0 Equivocal >1.0 Positive [place] Screen includes U1RNP,RNP70,Sm,Ro(SS-A),La(SS-B),CENP,Scl-70,Elli-1 Performed By: #### C DP, CMPX #### [place] [address] Urology Physician Assistant: Michael Chen MD Anti CCPon 0 Anti CCP 0.6 U/mL Normal 0.0-7.0 [facility] Comment on above: Result Comment: Reference Range: <7.0 Negative 7.0-10.0 Equivocal >10.0 Positive Performed By: #### B MPX, CDP #### [place] [id number] Urology Physician Assistant: Michael Chen MD Basic Metab w/rfx MGon 01-22 Anion gap [Moles/Vol] 8 mmol/L Low 9-16 [facility] Comment on above: Performed By: #### B MPX, CDP #### [facility] [address] [place] [address] Urology Physician Assistant: Michael Chen MD Calcium [Mass/Vol] 8.2 mg/dL Low 8.6-10.4 [facility] Comment on above: Performed By: #### B MPX, CDP #### [address] [address] Urology Physician Assistant: Michael Chen MD Chloride [Moles/Vol] 106 mmol/L Normal 98-107 [facility] Comment on above: Performed By: #### B MPX, CDP #### [address] [address] Urology Physician Assistant: Michael Chen MD CO2 [Moles/Vol] 21 mmol/L Normal 20-31 [facility] Comment on above: Performed By: #### B MPX, CDP #### [address] [address] Urology Physician Assistant: Michael Chen MD Creatinine [Mass/Vol] 1.7 mg/dL High 0.50-0.90 [facility] Comment on above: Performed By: #### B MPX, CDP #### [address] [address] Urology Physician Assistant: Michael Chen MD GFR/1.73 sq M.predicted among non-blacks MDRD (S/P/Bld) [Vol rate/Area] 33 mL/min/{1.73_m2} Low >60 [facility] Comment on above: Result Comment: These [...] Performed By: #### B MPX, CDP #### [address] [address] Urology Physician Assistant: Michael Chen MD Glucose [Mass/Vol] 88 mg/dL Normal 74-99 [facility] Comment on above: Performed By: #### B MPX, CDP #### [address] [address] Urology Physician Assistant: Michael Chen MD Potassium [Moles/Vol] 4.8 mmol/L Normal 3.7-5.3 [facility] Comment on above: Performed By: #### B MPX, CDP #### [facility] [address] [place] [address] Urology Physician Assistant: Michael Chen MD Sodium [Moles/Vol] 135 mmol/L Low 136-145 [facility] Comment on above: Performed By: #### B MPX, CDP #### [facility] [address] [place] [address] Urology Physician Assistant: Michael Chen MD Urea nitrogen [Mass/Vol] 56 mg/dL High 8-23 [facility] Comment on above: Performed By: #### B MPX, CDP #### [facility] [address] [place] [address] Urology Physician Assistant: Michael Chen MD CBC with Diffon 01-23-2024 Abs. Basophil <0.03 Normal 0.00-0.20 [facility] Comment on above: Performed By: #### B MPX, CDP #### [facility] [address] [place] [address] Urology Physician Assistant: Michael Chen MD Abs.Imm.Granulocyte 0.03 k/uL Normal 0.00-0.30 [facility] Comment on above: Performed By: #### B MPX, CDP #### [facility] [address] [place] [address] Urology Physician Assistant: Michael Chen MD Abs.Neutrophil (Seg) 5.50 k/uL Normal 1.50-8.10 [facility] Comment on above: Performed By: #### B MPX, CDP #### [facility] [address] [place] [address] Urology Physician Assistant: Michael Chen MD Basophils/100 WBC (Bld) 0 % Normal 0-2 [facility] Comment on above: Performed By: #### B MPX, CDP #### [address] [address] Urology Physician Assistant: Michael Chen MD Eosinophils (Bld) [#/Vol] 0.15 10*3/uL Normal 0.00-0.44 [facility] Comment on above: Performed By: #### B MPX, CDP #### [facility] [address] [place] [address] Urology Physician Assistant: Michael Chen MD Eosinophils/100 WBC (Bld) 2 % Normal 1-4 [facility] Comment on above: Performed By: #### B MPX, CDP #### [address] [address] Urology Physician Assistant: Michael Chen MD Erythrocyte distribution width (RBC) [Ratio] 13.7 % Normal 11.8-14.4 [facility] Comment on above: Performed By: #### B MPX, CDP #### [address] [address] Urology Physician Assistant: Michael Chen MD Hematocrit (Bld) [Volume fraction] 28.9 % Low 36.3-47.1 [facility] Comment on above: Performed By: #### B MPX, CDP #### [facility] [address] [place] [address] Urology Physician Assistant: Michael Chen MD Hemoglobin (Bld) [Mass/Vol] 8.6 g/dL Low 11.9-15.1 [facility] Comment on above: Performed By: #### B MPX, CDP #### [facility] [address] [place] [address] Urology Physician Assistant: Michael Chen MD Immature granulocytes/100 WBC (Bld) 0 % Normal 0 [facility] Comment on above: Performed By: #### B MPX, CDP #### [place] [address] Urology Physician Assistant: Michael Chen MD Lymphocytes (Bld) [#/Vol] 1.07 10*3/uL Low 1.10-3.70 [facility] Comment on above: Performed By: #### B MPX, CDP #### [place] [address] Urology Physician Assistant: Michael Chen MD Lymphocytes/100 WBC (Bld) 14 % Low 24-43 [facility] Comment on above: Performed By: #### B MPX, CDP #### [facility] [address] [place] [address] Urology Physician Assistant: Michael Chen MD MCH (RBC) [Entitic mass] 30.2 pg Normal 25.2-33.5 [facility] Comment on above: Performed By: #### B MPX, CDP #### [place] [address] Urology Physician Assistant: Michael Chen MD MCHC (RBC) [Mass/Vol] 29.8 g/dL Normal 28.4-34.8 [facility] Comment on above: Performed By: #### B MPX, CDP #### [place] [address] Urology Physician Assistant: Michael Chen MD MCV (RBC) [Entitic vol] 101.4 fL Normal 82.6-102.9 [facility] Comment on above: Performed By: #### B MPX, CDP #### [place] [address] Urology Physician Assistant: Michael Chen MD Monocytes (Bld) [#/Vol] 0.72 10*3/uL Normal 0.10-1.20 [facility] Comment on above: Performed By: #### B MPX, CDP #### [facility] [place] [address] Urology Physician Assistant: Michael Chen MD Monocytes/100 WBC (Bld) 10 % Normal 3-12 [facility] Comment on above: Performed By: #### B MPX, CDP #### [facility] [address] [place] [address] Urology Physician Assistant: Michael Chen MD Neutrophil (Seg) 74 % High 36-[address] [facility] Comment on above: Performed By: #### B MPX, CDP #### [address] [address] Urology Physician Assistant: Michael Chen MD NRBC Automated 0.0 per 100 WBC Normal 0.0 [facility] Comment on above: Performed By: #### B MPX, CDP #### [facility] [address] [place] [address] Urology Physician Assistant: Michael Chen MD Platelet mean volume (Bld) [Entitic vol] 9.9 fL Normal 8.1-13.5 [facility] Comment on above: Performed By: #### B MPX, CDP #### [address] [address] Urology Physician Assistant: Michael Chen MD Platelets (Bld) [#/Vol] 292 10*3/uL Normal 138-453 [facility] Comment on above: Performed By: #### B MPX, CDP #### [facility] [address] [place] [address] Urology Physician Assistant: Michael Chen MD RBC (Bld) [#/Vol] 2.85 10*6/uL Low 3.95-5.11 [facility] Comment on above: Performed By: #### B MPX, CDP #### [address] [address] Urology Physician Assistant: Michael Chen MD WBC (Bld) [#/Vol] 7.5 10*3/uL Normal 3.5-11.3 [facility] Comment on above: Performed By: #### B MPX, CDP #### [address] [address] Urology Physician Assistant: Michael Chen MD APTTon 01-22-2024 aPTT Coag (Bld) [Time] 29.1 s Normal 23.0-36.5 [facility] Comment on above: Result Comment: IV Heparin Therapy Range: 66.0-92.0 sec Performed By: #### C DP, CMPX #### [address] [address] Urology Physician Assistant: Michael Chen MD Basic Metab w/rfx MGon 01-21 Anion gap [Moles/Vol] 10 mmol/L Normal 9-16 [facility] Comment on above: Performed By: #### C DP, CMPX #### [address] [address] Urology Physician Assistant: Michael Chen MD Calcium [Mass/Vol] 8.3 mg/dL Low 8.6-10.4 [facility] Comment on above: Performed By: #### C DP, CMPX #### [address] [address] Urology Physician Assistant: Michael Chen MD Chloride [Moles/Vol] 107 mmol/L Normal 98-107 [facility] Comment on above: Performed By: #### C DP, CMPX #### [address] [address] Urology Physician Assistant: Michael Chen MD CO2 [Moles/Vol] 21 mmol/L Normal 20-31 [facility] Comment on above: Performed By: #### C DP, CMPX #### [address] [address] Urology Physician Assistant: Michael Chen MD Creatinine [Mass/Vol] 1.8 mg/dL High 0.50-0.90 [facility] Comment on above: Performed By: #### C DP, CMPX #### [facility] [address] [place] [address] Urology Physician Assistant: Michael Chen MD GFR/1.73 sq M.predicted among non-blacks MDRD (S/P/Bld) [Vol rate/Area] 32 mL/min/{1.73_m2} Low >60 [facility] Comment on above: Result Comment: These [...] Performed By: #### C DP, CMPX #### [facility] [address] [place] [address] Urology Physician Assistant: Michael Chen MD Glucose [Mass/Vol] 86 mg/dL Normal 74-99 [facility] Comment on above: Performed By: #### C DP, CMPX #### [facility] [address] [place] [address] Urology Physician Assistant: Michael Chen MD Potassium [Moles/Vol] 4.1 mmol/L Normal 3.7-5.3 [facility] Comment on above: Performed By: #### C DP, CMPX #### [facility] [address] [place] [address] Urology Physician Assistant: Michael Chen MD Sodium [Moles/Vol] 138 mmol/L Normal 136-145 [facility] Comment on above: Performed By: #### C DP, CMPX #### [facility] [address] [place] [address] Urology Physician Assistant: Michael Chen MD Urea nitrogen [Mass/Vol] 66 mg/dL High 8-23 [facility] Comment on above: Performed By: #### C DP, CMPX #### [facility] [address] [place] [address] Urology Physician Assistant: Michael Chen MD C-Reactive Proteinon 024 CRP [Mass/Vol] 31.7 mg/L High 0.0-5.0 [facility] Comment on above: Performed By: #### B MPX, CDP #### [facility] [address] [place] [address] Urology Physician Assistant: Michael Chen MD C3on 01-22-2024 C3 111 mg/dL Normal 90-180 [facility] Comment on above: Performed By: #### B MPX, CDP #### [facility] [address] [place] [address] Urology Physician Assistant: Michael Chen MD C4on 01-22-2024 C4 21 mg/dL Normal 10-40 [facility] Comment on above: Performed By: #### B MPX, CDP #### [facility] [address] [place] [address] Urology Physician Assistant: Michael Chen MD CBC with Diffon 01-22-2024 Abs. Basophil 0.00 k/uL Normal 0.00-0.20 [facility] Comment on above: Performed By: #### C DP, CMPX #### [facility] [address] [place] [address] Urology Physician Assistant: Michael Chen MD Abs.Imm.Granulocyte 0.00 k/uL Normal 0.00-0.30 [facility] Comment on above: Performed By: #### C DP, CMPX #### [facility] [address] [place] [address] Urology Physician Assistant: Michael Chen MD Abs.Neutrophil (Seg) 6.12 k/uL Normal 1.50-8.10 [facility] Comment on above: Performed By: #### C DP, CMPX #### [address] [address] Urology Physician Assistant: Michael Chen MD Basophils/100 WBC (Bld) 0 % Normal 0-2 [facility] Comment on above: Performed By: #### C DP, CMPX #### [address] [address] Urology Physician Assistant: Michael Chen MD Eosinophils (Bld) [#/Vol] 0.07 10*3/uL Normal 0.00-0.44 [facility] Comment on above: Performed By: #### C DP, CMPX #### [place] [address] Urology Physician Assistant: Michael Chen MD Eosinophils/100 WBC (Bld) 1 % Normal 1-4 [facility] Comment on above: Performed By: #### C DP, CMPX #### [address] [address] Urology Physician Assistant: Michael Chen MD Immature granulocytes/100 WBC (Bld) 0 % Normal 0 [facility] Comment on above: Performed By: #### C DP, CMPX #### [address] [address] Urology Physician Assistant: Michael Chen MD Lymphocytes (Bld) [#/Vol] 0.58 10*3/uL Low 1.10-3.70 [facility] Comment on above: Performed By: #### C DP, CMPX #### [address] [address] Urology Physician Assistant: Michael Chen MD Lymphocytes/100 WBC (Bld) 8 % Low 24-43 [facility] Comment on above: Performed By: #### C DP, CMPX #### [address] [address] Urology Physician Assistant: Michael Chen MD Monocytes (Bld) [#/Vol] 0.43 10*3/uL Normal 0.10-1.20 [facility] Comment on above: Performed By: #### C DP, CMPX #### [address] [address] Urology Physician Assistant: Michael Chen MD Monocytes/100 WBC (Bld) 6 % Normal 3-12 [facility] Comment on above: Performed By: #### C DP, CMPX #### [address] [address] Urology Physician Assistant: Michael Chen MD Morphology Pedro (Bld) [Interp] Normal Normal [facility] Comment on above: Performed By: #### C DP, CMPX #### [address] [address] Urology Physician Assistant: Michael Chen MD Neutrophil (Seg) 85 % High 36-[address] [facility] Comment on above: Performed By: #### C DP, CMPX #### [address] [address] Urology Physician Assistant: Michael Chen MD Erythrocyte distribution width (RBC) [Ratio] 13.6 % Normal 11.8-14.4 [facility] Comment on above: Performed By: #### C DP, CMPX #### [address] [address] Urology Physician Assistant: Michael Chen MD Hematocrit (Bld) [Volume fraction] 30.3 % Low 36.3-47.1 [facility] Comment on above: Performed By: #### C DP, CMPX #### [address] [address] Urology Physician Assistant: Michael Chen MD Hemoglobin (Bld) [Mass/Vol] 9.3 g/dL Low 11.9-15.1 [facility] Comment on above: Performed By: #### C DP, CMPX #### [address] [address] Urology Physician Assistant: Michael Chen MD MCH (RBC) [Entitic mass] 30.8 pg Normal 25.2-33.5 [facility] Comment on above: Performed By: #### C DP, CMPX #### [address] [address] Urology Physician Assistant: Michael Chen MD MCHC (RBC) [Mass/Vol] 30.7 g/dL Normal 28.4-34.8 [facility] Comment on above: Performed By: #### C DP, CMPX #### [address] [address] Urology Physician Assistant: Michael Chen MD MCV (RBC) [Entitic vol] 100.3 fL Normal 82.6-102.9 [facility] Comment on above: Performed By: #### C DP, CMPX #### [address] [address] Urology Physician Assistant: Michael Chen MD NRBC Automated 0.0 per 100 WBC Normal 0.0 [facility] Comment on above: Performed By: #### C DP, CMPX #### [address] [address] Urology Physician Assistant: Michael Chen MD Platelet mean volume (Bld) [Entitic vol] 9.6 fL Normal 8.1-13.5 [facility] Comment on above: Performed By: #### C DP, CMPX #### [address] [address] Urology Physician Assistant: Michael Chen MD Platelets (Bld) [#/Vol] 329 10*3/uL Normal 138-453 [facility] Comment on above: Performed By: #### C DP, CMPX #### [facility] [address] [place] [address] Urology Physician Assistant: Michael Chen MD RBC (Bld) [#/Vol] 3.02 10*6/uL Low 3.95-5.11 [facility] Comment on above: Performed By: #### C DP, CMPX #### [facility] [address] [place] [address] Urology Physician Assistant: Michael Chen MD WBC (Bld) [#/Vol] 7.2 10*3/uL Normal 3.5-11.3 [facility] Comment on above: Performed By: #### C DP, CMPX #### [facility] [address] [place] [address] Urology Physician Assistant: Michael Chen MD CT CERVICAL SPINE WO [...] Anuj Paniagua MD 01/22/24 Final result Normal [facility] CT CHEST ABDOMEN PELVIS W CO [...] Anuj Paniagua MD 01/22/24 Final result Normal [facility] CT HEAD WO CONTRASTon 2023 CT [...] Anuj Paniagua MD 01/22/24 Final result Normal [facility] CT LUMBAR SPINE BONY RECONST RUCTIONon [...] Anuj Paniagua MD 01/22/24 Final result Normal [facility] CT THORACIC SPINE BONY RECON STRUCTIONon [...] Anuj Paniagua MD 01/22/24 Final result Normal [facility] CTA HEAD NECK W CONTRASTon 0 [...] Anuj Paniagua MD 01/22/24 Final result Normal [facility] Creatine Kinaseon 01-22-2024 CK [Catalytic activity/Vol] 38 U/L Normal 26-192 [facility] Comment on above: Performed By: #### B MPX, CDP #### [facility] [address] [place] [address] Urology Physician Assistant: Michael Chen MD MRI BRAIN WO CONTRASTon [...] Shabbir Martin MD 01/22/24 Final result Normal [facility] MRI CERVICAL SPINE WO CONTRA STon [...] Kirby Adames MD 01/22/24 Final result Normal [facility] PTon 01-22-2024 INR Coag (PPP) [Relative time] 1.1 {INR} Normal [facility] Comment on above: Result Comment: Therapeutic Range: Moderate Anticoagulant Intensity: INR = 2.0-3.0 High Anticoagulant Intensity: INR = 2.5-3.5 Performed By: #### C DP, CMPX #### [address] [address] Urology Physician Assistant: Michael Chen MD PT Coag (PPP) [Time] 14.2 s Normal 11.7-14.9 [facility] Comment on above: Performed By: #### C DP, CMPX #### [facility] [address] [place] [address] Urology Physician Assistant: Michael Chen MD RA Screenon 01-22-2024 RA Screen <10 Normal 0-13 [facility] Comment on above: Performed By: #### B MPX, CDP #### [facility] [address] [place] [address] Urology Physician Assistant: Michael Chen MD Sedimentation Rateon 024 Sedimentation Rate 11 mm/Hr Normal 0-30 [facility] Comment on above: Performed By: #### B MPX, CDP #### [address] [address] Urology Physician Assistant: Michael Chen MD Type + Screenon 01-22-2024 Type + Screen Sample Expiration 01/25/2024,2359 Arm Band Number [id number] ABO/Rh(D) A POSITIVE Antibody Screen NEGATIVE Normal [facility] Comment on above: Performed By: #### B MPX, CDP #### [address] [address] Urology Physician Assistant: Michael Chen MD Uric Acidon 01-22-2024 Urate [Mass/Vol] 9.6 mg/dL High 2.4-5.[address] [facility] Comment on above: Performed By: #### B MPX, CDP #### [facility] [address] [place], [place] [id number] Urology Physician Assistant: Michael Chen MD Vitamin D 25 OHon 01-22-2024 Vitamin D 25 OH 30.3 ng/mL Normal 30.0-100.0 [facility] Comment on above: Result Comment: Reference Range: Vitamin D status Range Deficiency <20 ng/mL Mild Deficiency 20-30 ng/mL Sufficiency 30-100 ng/mL Toxicity >100 ng/mL Performed By: #### B MPX, CDP #### [facility] [address] [place] [address] Urology Physician Assistant: Michael Chen MD XR CHEST (SINGLE VIEW FRONTA L)on 01-22-2024 XR CHEST (SINGLE VIEW FRONTAL) EXAMINATION: ONE XRAY VIEW OF THE CHEST 01/22/2024 10:06 am COMPARISON: Chest radiograph 09/30/2023 HISTORY: ORDERING SYSTEM 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 PROVIDED HISTORY: Pre-op imaging FINDINGS: Lines/tubes: Right [...] Migel Price MD 01/22/24 Final result Normal [facility] Office Visiton 12-21-2023 Follow-up visit [id number] Loren Moser 1960 F Date Provider Department Center 12/21/2023 KasiBENJIE DANG [facility] Family History Family history unknown: Yes Level of Service:71187 PA OFFICE/OUTPATIENT ESTABLISHED MOD MDM 30 MIN Normal [facility] Orders Onlyon 12-21-2023 Orders Only [id number] Loren Moser 1960 F Date Provider Department Center 12/21/2023 MIKAYLA BURGER [facility] Family History Family history unknown: Yes Normal [facility] Basic Metab w/rfx MGon 09-30 Anion gap [Moles/Vol] 8 mmol/L Low 9-16 [facility] Comment on above: Performed By: #### C DP, BMPX #### [facility] [address] [place] [address] Urology Physician Assistant: Michael Chen MD Calcium [Mass/Vol] 8.1 mg/dL Low 8.6-10.4 [facility] Comment on above: Performed By: #### C DP, BMPX #### [facility] [address] [place] [address] Urology Physician Assistant: Michael Chen MD Chloride [Moles/Vol] 101 mmol/L Normal 98-107 [facility] Comment on above: Performed By: #### C DP, BMPX #### [facility] [address] [place] [address] Urology Physician Assistant: Michael Chen MD CO2 [Moles/Vol] 23 mmol/L Normal 20-31 [facility] Comment on above: Performed By: #### C DP, BMPX #### [facility] [address] [place] [address] Urology Physician Assistant: Michael Chen MD Creatinine [Mass/Vol] 1.5 mg/dL High 0.50-0.90 [facility] Comment on above: Performed By: #### C DP, BMPX #### [facility] [address] [place] [address] Urology Physician Assistant: Michael Chen MD GFR/1.73 sq M.predicted among non-blacks MDRD (S/P/Bld) [Vol rate/Area] 39 mL/min/{1.73_m2} Low >60 [facility] Comment on above: Result Comment: These [...] Performed By: #### C DP, BMPX #### [facility] [address] [place] [address] Urology Physician Assistant: Michael Chen MD Glucose [Mass/Vol] 100 mg/dL High 74-99 [facility] Comment on above: Performed By: #### C DP, BMPX #### [facility] [address] [place] [address] Urology Physician Assistant: Michael Chen MD Potassium [Moles/Vol] 4.4 mmol/L Normal 3.7-5.3 [facility] Comment on above: Performed By: #### C DP, BMPX #### [facility] [address] [place] [address] Urology Physician Assistant: Michael Chen MD Sodium [Moles/Vol] 132 mmol/L Low 136-145 [facility] Comment on above: Performed By: #### C DP, BMPX #### [facility] [address] [place] [address] Urology Physician Assistant: Michael Chen MD Urea nitrogen [Mass/Vol] 56 mg/dL High 8-23 [facility] Comment on above: Performed By: #### C DP, BMPX #### [facility] [address] [place] [address] Urology Physician Assistant: Michael Chen MD CBC with Diffon 10-01-2023 Abs. Basophil 0.03 k/uL Normal 0.00-0.20 [facility] Comment on above: Performed By: #### C DP, BMPX #### [place] [address] Urology Physician Assistant: Michael Chen MD Abs.Imm.Granulocyte 0.05 k/uL Normal 0.00-0.30 [facility] Comment on above: Performed By: #### C DP, BMPX #### [place] [address] Urology Physician Assistant: Michael Chen MD Abs.Neutrophil (Seg) 6.55 k/uL Normal 1.50-8.10 [facility] Comment on above: Performed By: #### C DP, BMPX #### [place] [address] Urology Physician Assistant: Michael Chen MD Basophils/100 WBC (Bld) 0 % Normal 0-2 [facility] Comment on above: Performed By: #### C DP, BMPX #### [place] [address] Urology Physician Assistant: Michael Chen MD Eosinophils (Bld) [#/Vol] 0.10 10*3/uL Normal 0.00-0.44 [facility] Comment on above: Performed By: #### C DP, BMPX #### [place] [address] Urology Physician Assistant: Michael Chen MD Eosinophils/100 WBC (Bld) 1 % Normal 1-4 [facility] Comment on above: Performed By: #### C DP, BMPX #### [place] [address] Urology Physician Assistant: Michael Chen MD Erythrocyte distribution width (RBC) [Ratio] 13.6 % Normal 11.8-14.4 [facility] Comment on above: Performed By: #### C DP, BMPX #### [address] [address] Urology Physician Assistant: Michael Chen MD Hematocrit (Bld) [Volume fraction] 27.9 % Low 36.3-47.1 [facility] Comment on above: Performed By: #### C DP, BMPX #### [address] [address] Urology Physician Assistant: Michael Chen MD Hemoglobin (Bld) [Mass/Vol] 8.4 g/dL Low 11.9-15.1 [facility] Comment on above: Performed By: #### C DP, BMPX #### [address] [address] Urology Physician Assistant: Michael Chen MD Immature granulocytes/100 WBC (Bld) 1 % High 0 [facility] Comment on above: Performed By: #### C DP, BMPX #### [address] [address] Urology Physician Assistant: Michael Chen MD Lymphocytes (Bld) [#/Vol] 0.94 10*3/uL Low 1.10-3.70 [facility] Comment on above: Performed By: #### C DP, BMPX #### [address] [address] Urology Physician Assistant: Michael Chen MD Lymphocytes/100 WBC (Bld) 11 % Low 24-43 [facility] Comment on above: Performed By: #### C DP, BMPX #### [address] [address] Urology Physician Assistant: Michael Chen MD MCH (RBC) [Entitic mass] 30.5 pg Normal 25.2-33.5 [facility] Comment on above: Performed By: #### C DP, BMPX #### [facility] [address] [place] [address] Urology Physician Assistant: Michael Chen MD MCHC (RBC) [Mass/Vol] 30.1 g/dL Normal 28.4-34.8 [facility] Comment on above: Performed By: #### C DP, BMPX #### [address] [address] Urology Physician Assistant: Michael Chen MD MCV (RBC) [Entitic vol] 101.5 fL Normal 82.6-102.9 [facility] Comment on above: Performed By: #### C DP, BMPX #### [address] [address] Urology Physician Assistant: Michael Chen MD Monocytes (Bld) [#/Vol] 0.54 10*3/uL Normal 0.10-1.20 [facility] Comment on above: Performed By: #### C DP, BMPX #### [address] [address] Urology Physician Assistant: Michael Chen MD Monocytes/100 WBC (Bld) 7 % Normal 3-12 [facility] Comment on above: Performed By: #### C DP, BMPX #### [address] [address] Urology Physician Assistant: Michael Chen MD Neutrophil (Seg) 80 % High 36-[address] [facility] Comment on above: Performed By: #### C DP, BMPX #### [address] [address] Urology Physician Assistant: Michael Chen MD NRBC Automated 0.0 per 100 WBC Normal 0.0 [facility] Comment on above: Performed By: #### C DP, BMPX #### [address] [address] Urology Physician Assistant: Michael Chen MD Platelet mean volume (Bld) [Entitic vol] 8.9 fL Normal 8.1-13.5 [facility] Comment on above: Performed By: #### C DP, BMPX #### [address] [address] Urology Physician Assistant: Michael Chen MD Platelets (Bld) [#/Vol] 281 10*3/uL Normal 138-453 [facility] Comment on above: Performed By: #### C DP, BMPX #### [address] [address] Urology Physician Assistant: Michael Chen MD RBC (Bld) [#/Vol] 2.75 10*6/uL Low 3.95-5.11 [facility] Comment on above: Performed By: #### C DP, BMPX #### [address] [address] Urology Physician Assistant: Michael Chen MD WBC (Bld) [#/Vol] 8.2 10*3/uL Normal 3.5-11.3 [facility] Comment on above: Performed By: #### C DP, BMPX #### [address] [address] Urology Physician Assistant: Michael Chen MD Basic Metab w/rfx MGon 09-29 Anion gap [Moles/Vol] 12 mmol/L Normal 9-16 [facility] Comment on above: Performed By: #### C DP, BMPX #### [address] [address] Urology Physician Assistant: Michael Chen MD Calcium [Mass/Vol] 8.2 mg/dL Low 8.6-10.4 [facility] Comment on above: Performed By: #### C DP, BMPX #### [facility] [address] [place] [address] Urology Physician Assistant: Michael Chen MD Chloride [Moles/Vol] 103 mmol/L Normal 98-107 [facility] Comment on above: Performed By: #### C DP, BMPX #### [facility] [address] [place] [address] Urology Physician Assistant: Michael Chen MD CO2 [Moles/Vol] 23 mmol/L Normal 20-31 [facility] Comment on above: Performed By: #### C DP, BMPX #### [facility] [address] [place] [phone] Urology Physician Assistant: Michael Chen MD Creatinine [Mass/Vol] 1.6 mg/dL High 0.50-0.90 [facility] Comment on above: Performed By: #### C DP, BMPX #### [address] [address] Urology Physician Assistant: Michael Chen MD GFR/1.73 sq M.predicted among non-blacks MDRD (S/P/Bld) [Vol rate/Area] 35 mL/min/{1.73_m2} Low >60 [facility] Comment on above: Result Comment: These [...] Performed By: #### C DP, BMPX #### [facility] [address] [place] [id number] Urology Physician Assistant: Michael Chen MD Glucose [Mass/Vol] 89 mg/dL Normal 74-99 [facility] Comment on above: Performed By: #### C DP, BMPX #### [facility] [address] [place] [phone] Urology Physician Assistant: Michael Chen MD Potassium [Moles/Vol] 4.6 mmol/L Normal 3.7-5.3 [facility] Comment on above: Result Comment: SPEC IMEN SLIGHTLY HEMOLYZED, RESULTS MAY BE ADVERSELY AFFECTED. Performed By: #### C DP, BMPX #### [facility] [address] [place] [phone] Urology Physician Assistant: Michael Chen MD Sodium [Moles/Vol] 138 mmol/L Normal 136-145 [facility] Comment on above: Performed By: #### C DP, BMPX #### [facility] [address] [place] [phone] Urology Physician Assistant: Michael Chen MD Urea nitrogen [Mass/Vol] 57 mg/dL High 8-23 [facility] Comment on above: Performed By: #### C DP, BMPX #### [facility] [address] [place] [id number] Urology Physician Assistant: Michael Chen MD Brain Natri. Peptideon 09-29 Natriuretic peptide B (Bld) [Mass/Vol] 1428 pg/mL High 0-300 [facility] Comment on above: Result Comment: An a ge-independent cutoff point of 300 pg/ml has a 98% negative predictive value excluding acute heart failure. Performed By: #### C DP, BMPX #### [facility] [address] [place] [id number] Urology Physician Assistant: Michael Chen MD Liver Profileon 09-30-2023 Albumin [Mass/Vol] 3.5 g/dL Normal 3.5-5.2 [facility] Comment on above: Performed By: #### C DP, BMPX #### [facility] [address] [place] [phone] Urology Physician Assistant: Michael Chen MD Albumin/Glob Ratio 2.0 Normal 1.0-2.5 [facility] Comment on above: Performed By: #### C DP, BMPX #### [facility] [address] [place] [phone] Urology Physician Assistant: Michael Chen MD Alkaline Phos 301 U/L High 35-104 [facility] Comment on above: Performed By: #### C DP, BMPX #### [facility] [address] [place] [address] Urology Physician Assistant: Michael Chen MD ALT [Catalytic activity/Vol] 17 U/L Normal 10-35 [facility] Comment on above: Performed By: #### C DP, BMPX #### [facility] [address] [place] [phone] Urology Physician Assistant: Michael Chen MD AST [Catalytic activity/Vol] 33 U/L Normal 10-35 [facility] Comment on above: Result Comment: SPEC IMEN SLIGHTLY HEMOLYZED, RESULTS MAY BE ADVERSELY AFFECTED. Performed By: #### C DP, BMPX #### [facility] [address] [place] [phone] Urology Physician Assistant: Michael Chen MD Bilirubin [Mass/Vol] 0.2 mg/dL Normal 0.00-1.20 [facility] Comment on above: Performed By: #### C DP, BMPX #### [facility] [address] [place] [id number] Urology Physician Assistant: Michael Chen MD Bilirubin, Indirect 0.1 mg/dL Normal 0.0-1.0 [facility] Comment on above: Performed By: #### C DP, BMPX #### [facility] [address] [place] [phone] Urology Physician Assistant: Michael Chen MD Bilirubin.indirect [Mass/Vol] mg/dL Normal 0.00-0.30 [facility] Comment on above: Performed By: #### C DP, BMPX #### [facility] [address] [place] [phone] Urology Physician Assistant: Michael Chen MD Globulin (S) [Mass/Vol] 2.1 g/dL [facility] Comment on above: Performed By: #### C DP, BMPX #### [address] [address] Urology Physician Assistant: Michael Chen MD Protein [Mass/Vol] 5.6 g/dL Low 6.6-8.7 [facility] Comment on above: Performed By: #### C DP, BMPX #### [address] [address] Urology Physician Assistant: Michael Chen MD Specimen Rejectionon 024 Reason for rejection Unable to perform t esting: Specimen clotted. [facility] Comment on above: Performed By: #### C DP, BMPX #### [address] [address] Urology Physician Assistant: Michael Chen MD Source of sample .BLOOD Normal [facility] Comment on above: Performed By: #### C DP, BMPX #### [address] [address] Urology Physician Assistant: Michael Chen MD Test ordered CDP [facility] Comment on above: Performed By: #### C DP, BMPX #### [address] [address] Urology Physician Assistant: Michael Chen MD XR CERVICAL SPINE (2-3 [...] Carlos Peralta MD 09/30/23 Final result Normal [facility] XR CHEST PORTABLEon 09-30-19 XR CHEST [...] Carlos Peralta MD 09/30/23 Final result Normal [facility] Absolute reticulocyte countO rdered By: Los Grissom on 07-03-2023 Reticulocytes (Bld) [#/Vol] 0.039 10*6/uL 0.024-0.[address] [place] [address] Basic Metabolic Panelon Creatinine Clr Calc Pharmacy 25.88 [facility] Comment on above: Performed By: #### V [id number], MG, BMP, JOSE, FE and TIBC, RETIC #### [facility] [address] [place] [address] [place] GFR/1.73 sq M.predicted MDRD (S/P/Bld) [Vol rate/Area] 23.348 mL/min/{1.73_m2} Normal [facility] Comment on above: Performed By: #### V [id number], MG, BMP, JOSE, FE and TIBC, RETIC #### [facility] [address] [place] [address] [place] Calcium [Mass/volume] in Ser um or PlasmaOrdered By: Jim Randhawa on 07-03-2023 Calcium [Mass/Vol] 8.3 mg/dL Low 8.6-10.3 [facility] Comment on above: Performed By: #### V [id number], MG, BMP, JOSE, FE and TIBC, RETIC #### [facility] [address] [place] [address] Carbon dioxide, total [Moles /volume] in Serum or PlasmaOrdered By: Jim Randhawa on 07-03-2023 CO2 [Moles/Vol] 20.4 mmol/L Low 21.0-31.0 [facility] Comment on above: Performed By: #### V [id number], MG, BMP, JOSE, FE and TIBC, RETIC #### [facility] [address] [place] [address] Chloride [Moles/volume] in S andrea or PlasmaOrdered By: Jim Randhawa on 07-03-2023 Chloride [Moles/Vol] 106 mmol/L Normal 98-107 [facility] Comment on above: Performed By: #### V [id number], MG, BMP, JOSE, FE and TIBC, RETIC #### [facility] [address] [place] [address] Creatinine [Mass/volume] in Serum or PlasmaOrdered By: Jim Randhawa on 07-03-2023 Creatinine [Mass/Vol] 2.32 mg/dL High 0.60-1.20 [facility] Comment on above: Performed By: #### V [id number], MG, BMP, JOSE, FE and TIBC, RETIC #### [facility] [address] [place] [address] [facility] echo transthoracicon [facility] echo transthoracic [facility] [place] [address] [place] [address] Echocardiogram Signed Patient: Mabel Moser MR#: [id number] : 1960 Acct:[id number] Age/Sex: 63 / F ADM Date: 06/29/23 Loc: Room: [address] [place] [address] Type: DIS IN Attending Dr: Jim Randhawa DO Ordering Provider: Jim Randhawa DO Date of Service: 07/02/2301/16/859 [facility] echo transthoracic: swelling Copies to: MD Jim Meyer DO Weight: 189 lb Performed By: Judah Pinto [facility] BSA: 1.9 m2 BP: 112/75 mmHg [...] FS: 40.8 % Ao root area: 7.8 [id number] ap4: 8.4 cm TAPSE: 2.6 cm EDV(Teich): [...] By: Benjie Leach MD 07/03/23 1445 Normal [facility] Ferritin [Mass/volume] in Se rum or PlasmaOrdered By: Los Grissom on 07-03-2023 Ferritin [Mass/Vol] 71.9 ng/mL Normal 11.0-306.8 [facility] Comment on above: Performed By: #### V [id number], MG, BMP, JOSE, FE and TIBC, RETIC #### [facility] [address] Folate [Mass/volume] in Seru m or PlasmaOrdered By: Los Grissom on 07-03-2023 Folate [Mass/Vol] 11.1 ng/mL >5.[address] [facility] Comment on above: Folate reference ran ge: >5.9 ng/mlThe WHO technical consultation on folate and vitamin [id number] has determined that folate concentrations lessthan 4 ng/ml are considered deficient. Glucose [Mass/volume] in Ser um or PlasmaOrdered By: Jim Randhawa on 07-03-2023 Glucose [Mass/Vol] 99 mg/dL Normal 70-100 [facility] Comment on above: ADA recommended refe rence rangeRandom Glucose Reference Range is dependent on time and content of last meal. Glucose of more than 200 mg/dL in a nonstressed, ambulatory subject supports the diagnosis of Diabetes Mellitus. Result Comment: [place] [facility] Glucose Reference Range is dependent on time and content of last meal. Glucose of more than 200 mg/dL in a nonstressed, ambulatory subject supports the diagnosis of Diabetes Mellitus. ADA recommended reference range Performed By: #### V [id number], MG, BMP, JOSE, FE and TIBC, RETIC #### [facility] [address] [place] [address] Iron [Mass/volume] in Serum or PlasmaOrdered By: Los Grissom on 07-03-2023 Iron [Mass/Vol] 59 ug/dL Normal 50-212 [facility] Comment on above: Performed By: #### V [id number], MG, BMP, JOSE, FE and TIBC, RETIC #### [address] Iron and TIBC Profileon % Iron Saturation 22.8 % Normal 20-[address] [facility] Comment on above: Performed By: #### V [id number], MG, BMP, JOSE, FE and TIBC, RETIC #### [address] Total Iron Binding Capacity 259 ug/dL Normal 255-450 [facility] Comment on above: Performed By: #### V [id number], MG, BMP, JOSE, FE and TIBC, RETIC #### [address] Iron binding capacity [Mass/ volume] in Serum or PlasmaOrdered By: Los Grissom on 07-03-2023 Iron binding capacity [Mass/Vol] 259 ug/dL 255-450 [facility] Iron saturation [Mass Fracti on] in Serum or PlasmaOrdered By: Los Grissom on 07-03-2023 Iron saturation [Mass fraction] 22.8 % 20-50 [facility] Magnesium [Mass/volume] in S andrea or PlasmaOrdered By: Jim Randhawa on 07-03-2023 Magnesium [Mass/Vol] 2.0 mg/dL Normal 1.9-2.7 [facility] Comment on above: Performed By: #### V [id number], MG, BMP, JOSE, FE and TIBC, RETIC #### [facility] [address] [place] [address] No Panel InformationOrdered By: Jim Randhawa on 07-03-2023 Estimated GFR (CKD-EPI) 23.348 mL/Min [facility] Creatinine Clearance (Chem 25.88 [facility] Potassium [Moles/volume] in Serum or PlasmaOrdered By: Jim Randhawa on 07-03-2023 Potassium [Moles/Vol] 3.9 mmol/L Normal 3.5-5.1 [facility] Comment on above: Performed By: #### V [id number], MG, BMP, JOSE, FE and TIBC, RETIC #### [address] Reticulocyte Counton 024 Reticulocyte Number 0.039 10*6/uL Normal 0.024-0 .08 4 [facility] Comment on above: Result Comment: PERF ORMED BY: [place] [address] PATHOLOGIST PARKING METER ATTENDANT ATNNER GAVIN M.D. Performed By: #### V [id number], MG, BMP, JOSE, FE and TIBC, RETIC #### [address] Reticulocyte Percent 1.5 % Normal 0.5-1.5 [facility] Comment on above: Performed By: #### V [id number], MG, BMP, JOSE, FE and TIBC, RETIC #### [place] [address] [place] Reticulocytes/100 RBC Auto ( Bld)Ordered By: Los Grissom on 07-03-2023 Reticulocytes/100 RBC (Bld) 1.5 % 0.5-1.5 [facility] Serum or plasma anion gap de terminationOrdered By: Jim Randhawa on 07-03-2023 Anion gap [Moles/Vol] 11.5 mmol/L Normal 6.0-15.0 [facility] Comment on above: Performed By: #### V [id number], MG, BMP, JOSE, FE and TIBC, RETIC #### [address] Sodium [Moles/volume] in Ser um or PlasmaOrdered By: Jim Randhawa on 07-03-2023 Sodium [Moles/Vol] 134 mmol/L Low 136-145 [facility] Comment on above: Performed By: #### V [id number], MG, BMP, JOSE, FE and TIBC, RETIC #### [facility] [address] [place] [address] Transferrin [Mass/volume] in Serum or PlasmaOrdered By: Los Grissom on 07-03-2023 Transferrin [Mass/Vol] 185 mg/dL Low 203-362 [facility] Comment on above: Performed By: #### V [id number], MG, BMP, JOSE, FE and TIBC, RETIC #### [address] Urea nitrogen [Mass/volume] in Serum or PlasmaOrdered By: Jim Randhawa on 07-03-2023 Urea nitrogen [Mass/Vol] 95 mg/dL High 7-25 [facility] Comment on above: Performed By: #### V [id number], MG, BMP, JOSE, FE and TIBC, RETIC #### [facility] [address] [place] [address] Vit. B12/Folate Profileon Folate 11.1 ng/mL Normal >5.9 [facility] Comment on above: Result Comment: Sandra te reference range: >5.9 ng/ml The WHO technical consultation on folate and vitamin b12 deficiencies has determined that folate concentrations less than 4 ng/ml are considered deficient. PERFORMED BY: [place] [address] PATHOLOGIST PARKING METER ATTENDANT TANNER GAVIN M.D. Performed By: #### V [id number], MG, BMP, JOSE, FE and TIBC, RETIC #### [address] Vitamin B12 ser/plasOrdered By: Los Grissom on 07-03-2023 Cobalamin (Vitamin B12) [Mass/Vol] 3564 pg/mL High 180-914 [facility] Comment on above: Performed By: #### V [id number], MG, BMP, JOSE, FE and TIBC, RETIC #### [address] [place] [address] [place] Basic Metabolic Panelon 01-0 Anion gap [Moles/Vol] 11.0 mmol/L Normal 6.0-15.0 [facility] Comment on above: Performed By: #### V [id number], MG, BMP, JOSE, FE and TIBC, RETIC #### [facility] [address] Calcium [Mass/Vol] 8.4 mg/dL Low 8.6-10.3 [facility] Comment on above: Performed By: #### V [id number], MG, BMP, JOSE, FE and TIBC, RETIC #### [address] Chloride [Moles/Vol] 104 mmol/L Normal 98-107 [facility] Comment on above: Performed By: #### V [id number], MG, BMP, JOSE, FE and TIBC, RETIC #### [address] CO2 [Moles/Vol] 20.2 mmol/L Low 21.0-31.0 [facility] Comment on above: Performed By: #### V [id number], MG, BMP, JOSE, FE and TIBC, RETIC #### [address] Creatinine [Mass/Vol] 2.31 mg/dL High 0.60-1.20 [facility] Comment on above: Performed By: #### V [id number], MG, BMP, JOSE, FE and TIBC, RETIC #### [address] Creatinine Clr Calc Pharmacy 26.22 [facility] Comment on above: Performed By: #### V [id number], MG, BMP, JOSE, FE and TIBC, RETIC #### [address] GFR/1.73 sq M.predicted MDRD (S/P/Bld) [Vol rate/Area] 23.469 mL/min/{1.73_m2} Normal [facility] Comment on above: Performed By: #### V [id number], MG, BMP, JOSE, FE and TIBC, RETIC #### [facility] [address] Glucose [Mass/Vol] 89 mg/dL Normal 70-100 [facility] Comment on above: Result Comment: [facility] Glucose Reference Range is dependent on time and content of last meal. Glucose of more than 200 mg/dL in a nonstressed, ambulatory subject supports the diagnosis of Diabetes Mellitus. ADA recommended reference range Performed By: #### V [id number], MG, BMP, JOSE, FE and TIBC, RETIC #### [address] Potassium [Moles/Vol] 4.2 mmol/L Normal 3.5-5.1 [facility] Comment on above: Performed By: #### V [id number], MG, BMP, JOSE, FE and TIBC, RETIC #### [facility] [address] Sodium [Moles/Vol] 131 mmol/L Low 136-145 [facility] Comment on above: Performed By: #### V [id number], MG, BMP, JOSE, FE and TIBC, RETIC #### [address] Urea nitrogen [Mass/Vol] 100 mg/dL High 7-25 [facility] Comment on above: Performed By: #### V [id number], MG, BMP, JOSE, FE and TIBC, RETIC #### [address] Erythrocyte distribution wid th Auto (RBC) [Ratio]Ordered By: Jim Randhawa on 07-02-2023 Erythrocyte distribution width (RBC) [Ratio] 14.2 % 11.9-15.3 [facility] Hematocrit Auto (Bld) [Volum e fraction]Ordered By: Jim Randhawa on 07-02-2023 Hematocrit (Bld) [Volume fraction] 25.0 % 34.0-46.4 [facility] Hemoglobin [Mass/volume] in BloodOrdered By: Jim Randhawa on 07-02-2023 Hemoglobin (Bld) [Mass/Vol] 8.4 g/dL 11.8-15.4 [facility] Hemogram CBC Without Diffon 07-02-2023 Erythrocyte distribution width (RBC) [Ratio] 14.2 % Normal 11.9-15.3 [facility] Comment on above: Performed By: #### V [id number], MG, BMP, JOSE, FE and TIBC, RETIC #### [address] Hematocrit (Bld) [Volume fraction] 25.0 % Low 34.0-46.4 [facility] Comment on above: Performed By: #### V [id number], MG, BMP, JOSE, FE and TIBC, RETIC #### [address] Hemoglobin (Bld) [Mass/Vol] 8.4 g/dL Low 11.8-15.4 [facility] Comment on above: Performed By: #### V [id number], MG, BMP, JOSE, FE and TIBC, RETIC #### [address] MCH (RBC) [Entitic mass] 32.3 pg Normal 24.7-34.3 [facility] Comment on above: Performed By: #### V [id number], MG, BMP, JOSE, FE and TIBC, RETIC #### [address] MCV (RBC) [Entitic vol] 96.6 fL Normal 80-100 [facility] Comment on above: Performed By: #### V [id number], MG, BMP, JOSE, FE and TIBC, RETIC #### [address] Mean Corpuscular HGB Conc 33.4 g/dL Normal 32.0-35.0 [facility] Comment on above: Performed By: #### V [id number], MG, BMP, JOSE, FE and TIBC, RETIC #### [address] Platelet mean volume (Bld) [Entitic vol] 7.7 fL Normal 6.3-10.7 [facility] Comment on above: Result Comment: PERF ORMED BY: [place] [address] PATHOLOGIST PARKING METER ATTENDANT TANNER GAVIN M.D. Performed By: #### V [id number], MG, BMP, JOSE, FE and TIBC, RETIC #### [address] Platelets (Bld) [#/Vol] 217 10*3/uL Normal 150-450 [facility] Comment on above: Performed By: #### V [id number], MG, BMP, JOSE, FE and TIBC, RETIC #### [address] RBC (Bld) [#/Vol] 2.59 10*6/uL Low 3.60-5.00 [facility] Comment on above: Performed By: #### V [id number], MG, BMP, JOSE, FE and TIBC, RETIC #### [address] WBC (Bld) [#/Vol] 6.1 10*3/uL Normal 3.8-11.6 [facility] Comment on above: Performed By: #### V [id number], MG, BMP, JOSE, FE and TIBC, RETIC #### [address] Leukocytes [#/volume] correc nicol for nucleated erythrocytes in Blood by Automated counOrdered By: Jim Randhawa on 07-02-2023 WBC corrected for nucl RBC Auto (Bld) [#/Vol] 6.1 10*3/uL 3.8-11.6 [facility] MCH Auto (RBC) [Entitic mass ]Ordered By: Jim Randhawa on 07-02-2023 MCH (RBC) [Entitic mass] 32.3 pg 24.7-34.3 [facility] MCHC Auto (RBC) [Mass/Vol]Or dered By: Jim Randhawa on 07-02-2023 MCHC (RBC) [Mass/Vol] 33.4 g/dL 32.0-35.0 [facility] MCV Auto (RBC) [Entitic vol] Ordered By: Jim Randhawa on 07-02-2023 MCV (RBC) [Entitic vol] 96.6 fL 80-100 [facility] Magnesiumon 07-02-2023 Magnesium [Mass/Vol] 2.1 mg/dL Normal 1.9-2.7 [facility] Comment on above: Result Comment: PERF ORMED BY: [place] [address] PATHOLOGIST PARKING METER ATTENDANT TANNER GAVIN M.D. Performed By: #### V [id number], MG, BMP, JOSE, FE and TIBC, RETIC #### [facility] [address] [place] [address] Platelet mean volume Auto (B ld) [Entitic vol]Ordered By: Jim Randhawa on 07-02-2023 Platelet mean volume (Bld) [Entitic vol] 7.7 fL 6.3-10.7 [facility] Platelets Auto (Bld) [#/Vol] Ordered By: Jim Randhawa on 07-02-2023 Platelets (Bld) [#/Vol] 217 10*3/uL 150-450 [facility] RBC Auto (Bld) [#/Vol]Ordere d By: Jim Randhawa on 07-02-2023 RBC (Bld) [#/Vol] 2.59 10*6/uL 3.60-5.00 [facility] Basic Metabolic Panelon Anion gap [Moles/Vol] 11.9 mmol/L Normal 6.0-15.0 [facility] Comment on above: Order Comment: LINE DRAW Performed By: #### V [id number], MG, BMP, JOSE, FE and TIBC, RETIC #### [facility] [address] Calcium [Mass/Vol] 8.9 mg/dL Normal 8.6-10.3 [facility] Comment on above: Order Comment: LINE DRAW Performed By: #### V [id number], MG, BMP, JOSE, FE and TIBC, RETIC #### [facility] [address] Chloride [Moles/Vol] 108 mmol/L High 98-107 [facility] Comment on above: Order Comment: LINE DRAW Performed By: #### V [id number], MG, BMP, JOSE, FE and TIBC, RETIC #### [address] CO2 [Moles/Vol] 18.5 mmol/L Low 21.0-31.0 [facility] Comment on above: Order Comment: LINE DRAW Performed By: #### V [id number], MG, BMP, JOSE, FE and TIBC, RETIC #### [facility] [address] [place] [address] Creatinine [Mass/Vol] 2.63 mg/dL Significan t change up 0.60-1.20 [facility] Comment on above: Order Comment: LINE DRAW Performed By: #### V [id number], MG, BMP, JOSE, FE and TIBC, RETIC #### [address] Creatinine Clr Calc Pharmacy 23.09 [facility] Comment on above: Order Comment: LINE DRAW Performed By: #### V [id number], MG, BMP, JOSE, FE and TIBC, RETIC #### [facility] [address] [place] [address] [place] GFR/1.73 sq M.predicted MDRD (S/P/Bld) [Vol rate/Area] 20.085 mL/min/{1.73_m2} [facility] Comment on above: Order Comment: LINE DRAW Performed By: #### V [id number], MG, BMP, JOSE, FE and TIBC, RETIC #### [facility] [address] [place] [address] Glucose [Mass/Vol] 128 mg/dL High 70-100 [facility] Comment on above: Order Comment: LINE DRAW Result Comment: [facility] Glucose Reference Range is dependent on time and content of last meal. Glucose of more than 200 mg/dL in a nonstressed, ambulatory subject supports the diagnosis of Diabetes Mellitus. ADA recommended reference range Performed By: #### V [id number], MG, BMP, JOSE, FE and TIBC, RETIC #### [address] Potassium [Moles/Vol] 4.4 mmol/L Normal 3.5-5.1 [facility] Comment on above: Order Comment: LINE DRAW Performed By: #### V [id number], MG, BMP, JOSE, FE and TIBC, RETIC #### [address] Sodium [Moles/Vol] 134 mmol/L Low 136-145 [facility] Comment on above: Order Comment: LINE DRAW Performed By: #### V [id number], MG, BMP, JOSE, FE and TIBC, RETIC #### [address] Urea nitrogen [Mass/Vol] 104 mg/dL High 7-25 [facility] Comment on above: Order Comment: LINE DRAW Performed By: #### V [id number], MG, BMP, JOSE, FE and TIBC, RETIC #### [address] Magnesiumon 07-01-2023 Magnesium [Mass/Vol] 2.3 mg/dL Normal 1.9-2.7 [facility] Comment on above: Order Comment: LINE DRAW Result Comment: PERF ORMED BY: [place] [address] PATHOLOGIST P[employer]ING [employer] ATTENDANT TANNER GAVIN M.D. Performed By: #### V [id number], MG, BMP, JOSE, FE and TIBC, RETIC #### [address] [place] [address] [place] Basic Metabolic Panelon 01-0 Anion gap [Moles/Vol] 14.6 mmol/L Normal 6.0-15.0 [facility] Comment on above: Performed By: #### V [id number], MG, BMP, JOSE, FE and TIBC, RETIC #### [facility] [address] Calcium [Mass/Vol] 8.6 mg/dL Normal 8.6-10.3 [facility] Comment on above: Performed By: #### V [id number], MG, BMP, JOSE, FE and TIBC, RETIC #### [facility] [address] Chloride [Moles/Vol] 109 mmol/L High 98-107 [facility] Comment on above: Performed By: #### V [id number], MG, BMP, JOSE, FE and TIBC, RETIC #### [address] CO2 [Moles/Vol] 15.0 mmol/L Low 21.0-31.0 [facility] Comment on above: Performed By: #### V [id number], MG, BMP, JOSE, FE and TIBC, RETIC #### [address] Creatinine [Mass/Vol] 3.16 mg/dL High 0.60-1.20 [facility] Comment on above: Performed By: #### V [id number], MG, BMP, JOSE, FE and TIBC, RETIC #### [address] Creatinine Clr Calc Pharmacy 19.26 [facility] Comment on above: Performed By: #### V [id number], MG, BMP, JOSE, FE and TIBC, RETIC #### [address] GFR/1.73 sq M.predicted MDRD (S/P/Bld) [Vol rate/Area] 16.114 mL/min/{1.73_m2} Normal [facility] Comment on above: Performed By: #### V [id number], MG, BMP, JOSE, FE and TIBC, RETIC #### [facility] [address] Glucose [Mass/Vol] 79 mg/dL Normal 70-100 [facility] Comment on above: Result Comment: [facility] Glucose Reference Range is dependent on time and content of last meal. Glucose of more than 200 mg/dL in a nonstressed, ambulatory subject supports the diagnosis of Diabetes Mellitus. ADA recommended reference range Performed By: #### V [id number], MG, BMP, JOSE, FE and TIBC, RETIC #### [facility] [address] Potassium [Moles/Vol] 4.6 mmol/L Normal 3.5-5.1 [facility] Comment on above: Performed By: #### V [id number], MG, BMP, JOSE, FE and TIBC, RETIC #### [facility] [address] Sodium [Moles/Vol] 134 mmol/L Low 136-145 [facility] Comment on above: Performed By: #### V [id number], MG, BMP, JOSE, FE and TIBC, RETIC #### [facility] [address] Urea nitrogen [Mass/Vol] 117 mg/dL High 7-25 [facility] Comment on above: Performed By: #### V [id number], MG, BMP, JOSE, FE and TIBC, RETIC #### [facility] [address] Magnesiumon 06-30-2023 Magnesium [Mass/Vol] 2.5 mg/dL Normal 1.9-2.7 [facility] Comment on above: Result Comment: PERF ORMED BY: [place] [address] PATHOLOGIST [employer]ENDANT TANNER GAVIN M.D. Performed By: #### V [id number], MG, BMP, JOSE, FE and TIBC, RETIC #### [facility] [address] CBC AUTO DIFFon 11-22-2022 BASO # 0.0 103/ul Normal 0.0-0.1 [facility] Comment on above: Performed By: #### C BC ####[facility] Llnriiwwmt9518 [place] [id number]. Selenaneil Tripathi Basophils/100 WBC (Bld) 0.6 % Normal 0.2-2.0 [facility] Comment on above: Performed By: #### C BC ####[facility] Awvlzcxvfx9563 [place] [address]Dr. Selenaneil Tripathi EO # 0.1 103/ul Normal 0.0-0.7 [facility] Comment on above: Performed By: #### C BC ####[facility] Ckdlwlqzuq0563 [place] [address]Dr. Airam Tripathi Eosinophils/100 WBC (Bld) 1.7 % Normal 0.9-7.0 [facility] Comment on above: Performed By: #### C BC ####[facility] Aqezvimvps8534 [place] [address]Dr. Selenaneil Tripathi Erythrocyte distribution width (RBC) [Ratio] 15.2 % Critically high 11.0-15.0 [facility] Comment on above: Performed By: #### C BC ####[facility] Nsxykalbnw7220 [place] [address]Dr. Airam Tripathi Hematocrit (Bld) [Volume fraction] 31.6 % Critically low 36.0-48.0 [facility] Comment on above: Performed By: #### C BC ####[facility] Jtbhggyzdl5347 [place] [address]Dr. Airam Tripathi Hemoglobin (Bld) [Mass/Vol] 9.9 g/dL Critically low 12.0-16.0 [facility] Comment on above: Performed By: #### C BC ####[facility] Uplqwkmkzj2305 [place] [address]Dr. Airam Tripathi IG # 0.02 10e3/ul Normal 0.00-0.03 [facility] Comment on above: Performed By: #### C BC ####[facility] Hjggweeqhu0816 [place] [address]DrKianna Airam Tripathi IG % 0.4 % Normal 0.0-0.5 [facility] Comment on above: Performed By: #### C BC ####[facility] Dyrgddaout9249 [place] [address]DrKianna Airam Tripathi LYMPH # 0.8 103/ul Critically low 1.2-3.8 [facility] Comment on above: Performed By: #### C BC ####[facility] Tdkcofwshe[address] [place], [place] [address]DrKianna Airam Deuce Lymphocytes/100 WBC (Bld) 16.9 % Critically low 20.5-60.0 [facility] Comment on above: Performed By: #### C BC ####[facility] Xzoudoaauq[address] [place], [place] [address]DrKianna Airam Deuce MANUAL DIFF REQ NO Normal [facility] Comment on above: Performed By: #### C BC ####[facility] Kzqjfjexhr[address] [place], [place] [address]DrKianna Airam Tripathi MCH (RBC) [Entitic mass] 28.4 pg Normal 26.7-34.0 [facility] Comment on above: Performed By: #### C BC ####[facility] Uvesqihhvo[address] [place], [place] [address]DrKianna Airam Tripathi MCHC (RBC) [Mass/Vol] 31.3 g/dL Normal 29.9-35.2 [facility] Comment on above: Performed By: #### C BC ####[facility] Vlsgwdokfr[address] [place], [place] [address]DrKianna Airam Deuce MCV (RBC) [Entitic vol] 90.8 fL Normal 81.0-99.0 [facility] Comment on above: Performed By: #### C BC ####[facility] Tzosycqjiq68[address] [place], [place] [address]DrKianna Selenaneil Tripathi MONO # 0.4 103/ul Normal 0.3-0.8 [facility] Comment on above: Performed By: #### C BC ####[facility] Kexkndocku5888 [place] [id number]. Airam Tripathi Monocytes/100 WBC (Bld) 8.9 % Normal 1.7-12.0 [facility] Comment on above: Performed By: #### C BC ####[facility] Mowbyxqjra3856 [place] [id number]. Airam Tripathi NEUT # 3.4 103/ul Normal 1.4-6.5 [facility] Comment on above: Performed By: #### C BC ####[facility] Wdhdtyxift9071 [place] [address]Dr. Airam Tripathi Neutrophils/100 WBC (Bld) 71.5 % Normal 43.0-75.0 [facility] Comment on above: Performed By: #### C BC ####[facility] Xaqyztwozq5131 [place] [address]Dr. Airam Tripathi Platelet mean volume (Bld) [Entitic vol] 9.4 fL Critically low 9.5-13.5 [facility] Comment on above: Performed By: #### C BC ####[facility] Stbjbaptib5517 [place] [address]Dr. Airam Tripathi PLT 302 103/ul Normal 150-450 [facility] Comment on above: Performed By: #### C BC ####[facility] Xkuzvbbtbb1612 [place] [address]Dr. Airam Tripathi RBC 3.48 106/ul Critically low 4.20-5.40 [facility] Comment on above: Performed By: #### C BC ####[facility] Cnpxkprkte9486 [place] [phone]. Airam Tripathi WBC 4.7 103/ul Normal 4.0-11.0 [facility] Comment on above: Performed By: #### C BC ####[facility] Kcczvnqxyv8441 [place] [address]DrKianna Tripathi PROF 14(COMP METB)on 023 Albumin [Mass/Vol] 3.4 g/dL Normal 3.4-5.0 [facility] Comment on above: Performed By: #### C MP ####[facility] Fxodatqrzf4686 [place] [address]Dr. Airam Tripathi Albumin/Globulin [Mass ratio] 1.0 {ratio} Normal [facility] Comment on above: Performed By: #### C MP ####[facility] Zxoftjenau5949 [place] [address]Dr. Airam Tripathi ALP [Catalytic activity/Vol] 123 U/L Critically high 46-116 [facility] Comment on above: Performed By: #### C MP ####[facility] Sioavsmxlc175[address] [place], [place] [address]Dr. Airam Tripathi ALT [Catalytic activity/Vol] 24 U/L Normal 14-59 [facility] Comment on above: Performed By: #### C MP ####[facility] Lvwfhfjkff785[address] [place], [place] [address]Dr. Airam Tripathi Anion gap [Moles/Vol] 12.1 mmol/L Normal [facility] Comment on above: Performed By: #### C MP ####[facility] Vqnehebtcm86[address] [place], [place] [address]Dr. Airam Tripathi AST [Catalytic activity/Vol] 30 U/L Normal 15-37 [facility] Comment on above: Performed By: #### C MP ####[facility] Bfmyooiavc673[address] [place], [place] [address]Dr. Airam Tripathi Bilirubin [Mass/Vol] 0.4 mg/dL Normal 0.2-1.0 [facility] Comment on above: Performed By: #### C MP ####[facility] Csfjvnlmed525[address] [place], [place] [address]Dr. Airam Tripathi Calcium [Mass/Vol] 8.9 mg/dL Normal 8.5-10.1 [facility] Comment on above: Performed By: #### C MP ####[facility] Xpsklktknh8525[address] [place], [place] [address]Dr. Airam Tripathi Chloride [Moles/Vol] 95 mmol/L Critically low 98-107 [facility] Comment on above: Performed By: #### C MP ####[facility] Eokjykpozv3516 [place] [id number]. Airam Tripathi CO2 [Moles/Vol] 28.7 mmol/L Normal 21.0-32.0 [facility] Comment on above: Performed By: #### C MP ####[facility] Eaayzegbex1051 [place] [id number]. Airam Tripathi Creatinine [Mass/Vol] 1.25 mg/dL Critically high 0.55-1.02 [facility] Comment on above: Performed By: #### C MP ####[facility] Eyrooxjixh7504 [place] [phone]. Airam Tripathi EGFR-AF [place] 53 mL/min/1.73m2 Critically low >=60 [facility] Comment on above: Performed By: #### C MP ####[facility] Qvplarbxmw256[address] [place], [place] [address]Dr. Airam Tripathi EGFR-NON AF [place] 44 mL/min/1.73m2 Critically low >=60 [facility] Comment on above: Performed By: #### C MP ####[facility] Brmicpdivo0753 [place] [address]Dr. Airam Tripathi Globulin (S) [Mass/Vol] 3.5 g/dL Normal [facility] Comment on above: Performed By: #### C MP ####[facility] Qfppuhbvyg0307 [place] [address]Dr. Airam Tripathi Glucose [Mass/Vol] 89 mg/dL Normal 74-106 [facility] Comment on above: Performed By: #### C MP ####[facility] Jwqylboehp5591 [place] [address]Dr. Airam Tripathi Potassium [Moles/Vol] 4.8 mmol/L Normal 3.5-5.1 [facility] Comment on above: Performed By: #### C MP ####[facility] Pprljguvmx1403 [place] [address]Dr. Airam Tripathi Protein [Mass/Vol] 6.9 g/dL Normal 6.4-8.2 [facility] Comment on above: Performed By: #### C MP ####[facility] Beofnuyisa3818 [place] [address]Dr. Airam Deuce Sodium [Moles/Vol] 131 mmol/L Critically low 136-145 [facility] Comment on above: Performed By: #### C MP ####[facility] Gmzdpblasc934[address] [place], [place] [address]Dr. Airam Tripathi Urea nitrogen [Mass/Vol] 37.0 mg/dL Critically high 7.0-18.0 [facility] Comment on above: Performed By: #### C MP ####[facility] Uhcuuochjh35[address] [place], [place] [address]Dr. Airam Tripathi Urea nitrogen/Creatinine [Mass ratio] 29.6 mg/mg Normal [facility] Comment on above: Performed By: #### C MP ####[facility] Zjamqvpose729[address] [place], [place] [address]Dr. Airam Tripathi OSMOLALITYon 11-18-2022 Osmolality [Osmolality] 293 mosm/kg Normal 275-295 [facility] Comment on above: Performed By: #### O SMO ####[facility] Amjilvtyfc276[address] [place], [place] [address]Dr. Selenaneil Deuce BNPon 11-16-2022 Natriuretic peptide B (Bld) [Mass/Vol] 1142.0 pg/mL Critically high <=900.0 [facility] Comment on above: Performed By: #### B ROENTGENOLOGIST ####[facility] Nvgikckcaw[address] [place], [place] [address]Dr. Airam Deuce CBC AUTO DIFFon 11-16-2022 BASO # 0.0 103/ul Normal 0.0-0.1 [facility] Comment on above: Performed By: #### C BC ####[facility] Oewwmtaaja[address] [place], [place] [address]DrKianna Tripathi Basophils/100 WBC (Bld) 0.3 % Normal 0.2-2.0 [facility] Comment on above: Performed By: #### C BC ####[facility] Gotfzvzjan097[address] [place], [place] [address]Dr. Airam Tripathi EO # 0.3 103/ul Normal 0.0-0.7 [facility] Comment on above: Performed By: #### C BC ####[facility] Kjanajagyo9181 [place] [address]Dr. Airam Tripathi Eosinophils/100 WBC (Bld) 4.6 % Normal 0.9-7.0 [facility] Comment on above: Performed By: #### C BC ####[facility] Iclqdazdex766[address] [place], [place] [address]Dr. Airam Tripathi Erythrocyte distribution width (RBC) [Ratio] 16.1 % Critically high 11.0-15.0 [facility] Comment on above: Performed By: #### C BC ####[facility] Wlreyjehnf15[address] [place], [place] [address]Dr. Airam Tripathi Hematocrit (Bld) [Volume fraction] 28.0 % Critically low 36.0-48.0 [facility] Comment on above: Performed By: #### C BC ####[facility] Axloxrrafp7425[address] [place], [place] [address]Dr. Airam Tripathi Hemoglobin (Bld) [Mass/Vol] 8.9 g/dL Critically low 12.0-16.0 [facility] Comment on above: Performed By: #### C BC ####[facility] Sfthlgeppz[address] [place], [place] [address]Dr. Airam Tripathi IG # 0.02 10e3/ul Normal 0.00-0.03 [facility] Comment on above: Performed By: #### C BC ####[facility] Vdmqqnvsut11[address] [place], [place] [address]Dr. Airam Tripathi IG % 0.3 % Normal 0.0-0.5 [facility] Comment on above: Performed By: #### C BC ####[facility] Aahkwzyxwn105[address] [place], [place] [address]DrKianna Ariam Tripathi LYMPH # 1.5 103/ul Normal 1.2-3.8 [facility] Comment on above: Performed By: #### C BC ####[facility] Knrmropbkr33[address] [place], [place] [address]Dr. Airam Tripathi Lymphocytes/100 WBC (Bld) 24.2 % Normal 20.5-60.0 [facility] Comment on above: Performed By: #### C BC ####[facility] Vambvcbkyq8702 [place] [address]DrKianna Tripathi MANUAL DIFF REQ NO Normal [facility] Comment on above: Performed By: #### C BC ####[facility] Zezskdrzyq2721 [place] [address]Dr. Airam Tripathi MCH (RBC) [Entitic mass] 29.3 pg Normal 26.7-34.0 [facility] Comment on above: Performed By: #### C BC ####[facility] Ahrfwbifhp88[address] [place], [place] [address]Dr. Airam Tripathi MCHC (RBC) [Mass/Vol] 31.8 g/dL Normal 29.9-35.2 [facility] Comment on above: Performed By: #### C BC ####[facility] Wmjvqfnvnz29[address] [place], [place] [address]Dr. Airam Tripathi MCV (RBC) [Entitic vol] 92.1 fL Normal 81.0-99.0 [facility] Comment on above: Performed By: #### C BC ####[facility] Bceolhohgi[address] [place], [place] [address]DrKianna Tripathi MONO # 0.6 103/ul Normal 0.3-0.8 [facility] Comment on above: Performed By: #### C BC ####[facility] Ieizzsktpl[address] [place], [place] [address]DrKianna Tripathi Monocytes/100 WBC (Bld) 10.0 % Normal 1.7-12.0 [facility] Comment on above: Performed By: #### C BC ####[facility] Qavlfyaeqm712[address] [place], [place] [address]DrKianna Tripathi NEUT # 3.7 103/ul Normal 1.4-6.5 [facility] Comment on above: Performed By: #### C BC ####[facility] Mhetwcotxw93[address] [place], [place] [address]DrKianna Tripathi Neutrophils/100 WBC (Bld) 60.6 % Normal 43.0-75.0 [facility] Comment on above: Performed By: #### C BC ####[facility] Paoqrdjhne2689 [place] [address]Dr. Airam Deuce Platelet mean volume (Bld) [Entitic vol] 9.1 fL Critically low 9.5-13.5 [facility] Comment on above: Performed By: #### C BC ####[facility] Ivnlfiijct1252 [place] [address]Dr. Airam Tripathi PLT 242 103/ul Normal 150-450 [facility] Comment on above: Performed By: #### C BC ####[facility] Zzdvjkkkbn[address] [place], [place] [address]Dr. Airam Tripathi RBC 3.04 106/ul Critically low 4.20-5.40 [facility] Comment on above: Performed By: #### C BC ####[facility] Wtknbuyhop679[address] [place], [place] [address]DrKianna Tripathi WBC 6.1 103/ul Normal 4.0-11.0 [facility] Comment on above: Performed By: #### C BC ####[facility] Efopwvszdj654[address] [place], [place] [address]DrKianna Selenaneil Tripathi CT STROKE HEAD WOon 11-17-19 CT STROKE HEAD WO Normal [facility] PROF CHEM 8 (BAS METB)on Anion gap [Moles/Vol] 9.8 mmol/L Normal [facility] Comment on above: Performed By: #### B GERTRUDE, HSTROPN ####[facility] Hqtrdqcayc8234 [place] [address]DrKianna Tripathi Calcium [Mass/Vol] 8.4 mg/dL Critically low 8.5-10.1 [facility] Comment on above: Performed By: #### B GERTRUDE, HSTROPN ####[facility] Hvyhqmensi2168 [place] [address]DrKianna Tripathi Chloride [Moles/Vol] 99 mmol/L Normal 98-107 [facility] Comment on above: Performed By: #### B GERTRUDE, HSTROPN ####[facility] Munsdwvicp9084 [place] [address]Dr. Airam Tripathi CO2 [Moles/Vol] 28.3 mmol/L Normal 21.0-32.0 [facility] Comment on above: Performed By: #### B GERTRDUE, HSTROPN ####[facility] Wonibhyudw7979 [place] [address]Dr. Airam Tripathi Creatinine [Mass/Vol] 1.40 mg/dL Critically high 0.55-1.02 [facility] Comment on above: Performed By: #### B GERTRUDE, HSTROPN ####[facility] Cszizngdbg[address] [place], [place] [address]Dr. Airam Tripathi EGFR-AF [place] 46 mL/min/1.73m2 Critically low >=60 [facility] Comment on above: Performed By: #### B GERTRUDE, HSTROPN ####[facility] Hnhfhvufxf[address] [place], [place] [address]Dr. Airam Tripathi EGFR-NON AF [place] 38 mL/min/1.73m2 Critically low >=60 [facility] Comment on above: Performed By: #### B GERTRUDE, HSTROPN ####[facility] Goxvakhcye153[address] [place], [place] [address]Dr. Airam Tripathi Glucose [Mass/Vol] 88 mg/dL Normal 74-106 [facility] Comment on above: Performed By: #### B GERTRUDE, HSTROPN ####[facility] Nxwqhgaaeb308[address] [place], [place] [address]Dr. Airam Tripathi Potassium [Moles/Vol] 5.1 mmol/L Normal 3.5-5.1 [facility] Comment on above: Performed By: #### B GERTRUDE, HSTROPN ####[facility] Eeuarwzxzs47[address] [place], [place] [address]Dr. Airam Tripathi Sodium [Moles/Vol] 132 mmol/L Critically low 136-145 [facility] Comment on above: Performed By: #### B GERTRUDE, HSTROPN ####[facility] Hfmrpazffh0054 [place] [id number]. Airam Tripathi Urea nitrogen [Mass/Vol] 56.0 mg/dL Critically high 7.0-18.0 [facility] Comment on above: Performed By: #### B GERTRUDE HSTROPN ####[facility] Njqvnnwagk2059 [place] [id number]. Airam Tripathi Urea nitrogen/Creatinine [Mass ratio] 40.0 mg/mg Normal [facility] Comment on above: Performed By: #### B GERTRUDE HSTROPN ####[facility] Pgiqerpwnx3468 [place] [address]Dr. Airam Tripathi TROPONIN, HIGH SENSITIVITYon 11-16-2022 HSTROP 9.9 pg/mL Normal 4.0-51.3 [facility] Comment on above: Result Comment: CUT- OFF POINTS HAVE BEEN ESTABLISHED BASED ON THE FOURTH UNIVERSAL DEFINITIONS OF MYOCARDIALINFARCTION. THE UPPER REFERENCE LIMIT (URL) OF TROPONIN, DEFINED THE 99TH PERCENTILE OFcTnI DISTRIBUTION IN A REFERENCE POPULATION, HAS BEEN CONFIRMED THE DECISION THRESHOLDFOR [place] DIAGNOSIS. Performed By: #### B GERTRUDE HSTROPN ####[facility] Mmogqacwzh6054 [place] [address]Dr. Airam Tripathi XR CHEST 1 Von 11-16-2022 XR CHEST 1 V Normal [facility] CBC AUTO DIFFon 11-11-2022 BASO # 0.0 103/ul Normal 0.0-0.1 [facility] Comment on above: Performed By: #### C BC ####[facility] Ptocewyglr7675 [place] [address]Dr. Airam Tripathi Basophils/100 WBC (Bld) 0.4 % Normal 0.2-2.0 [facility] Comment on above: Performed By: #### C BC ####[facility] Mppywumpal4162 [place] [address]Dr. Airam Tripathi EO # 0.4 103/ul Normal 0.0-0.7 [facility] Comment on above: Performed By: #### C BC ####[facility] Ovekyoeici8107 [place] [address]Dr. Airam Tripathi Eosinophils/100 WBC (Bld) 4.6 % Normal 0.9-7.0 [facility] Comment on above: Performed By: #### C BC ####[facility] Ftfhikhgne5396 [place] [address]Dr. Airam Tripathi Erythrocyte distribution width (RBC) [Ratio] 15.8 % Critically high 11.0-15.0 [facility] Comment on above: Performed By: #### C BC ####[facility] Nyjreayzpv84[address] [place], [place] [address]Dr. Airam Tripathi Hematocrit (Bld) [Volume fraction] 30.3 % Critically low 36.0-48.0 [facility] Comment on above: Performed By: #### C BC ####[facility] Kjnmvatghm365[address] [place], [place] [address]Dr. Airam Tripathi Hemoglobin (Bld) [Mass/Vol] 9.3 g/dL Critically low 12.0-16.0 [facility] Comment on above: Performed By: #### C BC ####[facility] Nudhckfdkj368[address] [place], [place] [address]Dr. Airam Tripathi IG # 0.03 10e3/ul Normal 0.00-0.03 [facility] Comment on above: Performed By: #### C BC ####[facility] Hexpceaiyt[address] [place], [place] [address]Dr. Airam Tripathi IG % 0.4 % Normal 0.0-0.5 [facility] Comment on above: Performed By: #### C BC ####[facility] Zkvzlininr5[address] [place], [place] [address]Dr. Airam Tripathi LYMPH # 2.0 103/ul Normal 1.2-3.8 [facility] Comment on above: Performed By: #### C BC ####[facility] Flwdfkxnzq950[address] [place], [place] [address]Dr. Airam Tripathi Lymphocytes/100 WBC (Bld) 24.5 % Normal 20.5-60.0 [facility] Comment on above: Performed By: #### C BC ####[facility] Khputsvhdy23[address] [place], [place] [address]Dr. Selenaneil Tripathi MANUAL DIFF REQ NO Normal [facility] Comment on above: Performed By: #### C BC ####[facility] Venlrmqyff9184 [place] [address]Dr. Airam Deuce MCH (RBC) [Entitic mass] 28.9 pg Normal 26.7-34.0 [facility] Comment on above: Performed By: #### C BC ####[facility] Szqmiptpld4310 [place] [address]Dr. Airam Deuce MCHC (RBC) [Mass/Vol] 30.7 g/dL Normal 29.9-35.2 [facility] Comment on above: Performed By: #### C BC ####[facility] Qhccuprdug4861 [place] [address]Dr. Selenaneil Tripathi MCV (RBC) [Entitic vol] 94.1 fL Normal 81.0-99.0 [facility] Comment on above: Performed By: #### C BC ####[facility] Lqpnupdxlw9683 [place] [address]Dr. Airam Tripathi MONO # 0.7 103/ul Normal 0.3-0.8 [facility] Comment on above: Performed By: #### C BC ####[facility] Arrshnwhwp5724 [place] [address]Dr. Airam Tripathi Monocytes/100 WBC (Bld) 8.3 % Normal 1.7-12.0 [facility] Comment on above: Performed By: #### C BC ####[facility] Jztqyhtfkj7288 [place] [address]DrKianna Tripathi NEUT # 5.0 103/ul Normal 1.4-6.5 [facility] Comment on above: Performed By: #### C BC ####[facility] Ijnfvrfgux6118 [place] [address]DrKianna Tripathi Neutrophils/100 WBC (Bld) 61.8 % Normal 43.0-75.0 [facility] Comment on above: Performed By: #### C BC ####[facility] Rmjvyogacc[address] [place], [place] [address]Dr. Airam Tripathi Platelet mean volume (Bld) [Entitic vol] 9.4 fL Critically low 9.5-13.5 [facility] Comment on above: Performed By: #### C BC ####[facility] Eintpaobhn9[address] [place] [address]Dr. Airam Tripathi PLT 270 103/ul Normal 150-450 [facility] Comment on above: Performed By: #### C BC ####[facility] Dgwnpfhbpb4877 [place] [address]Dr. Airam Tripathi RBC 3.22 106/ul Critically low 4.20-5.40 [facility] Comment on above: Performed By: #### C BC ####[facility] Tfxaksadit0072 [place] [address]DrKianna Tripathi WBC 8.1 103/ul Normal 4.0-11.0 [facility] Comment on above: Performed By: #### C BC ####[facility] Vgvziqzaiq4060 [place] [address]DrKianna Tripathi PROF 14(COMP METB)on 023 Albumin [Mass/Vol] 3.2 g/dL Critically low 3.4-5.0 [facility] Comment on above: Performed By: #### C MP ####[facility] Xsoiixtues7699 [place] [address]DrKianna Tripathi Albumin/Globulin [Mass ratio] 1.0 {ratio} Normal [facility] Comment on above: Performed By: #### C MP ####[facility] Lroexsycei3326 [place] [address]DrKianna Tripathi ALP [Catalytic activity/Vol] 108 U/L Normal 46-116 [facility] Comment on above: Performed By: #### C MP ####[facility] Xzemhxcpfw[address] [place] [id number] Tripathi ALT [Catalytic activity/Vol] 30 U/L Normal 14-59 [facility] Comment on above: Performed By: #### C MP ####[facility] Btbqaxpcsd[address] [place], [place] [address]DrKianna Tripathi Anion gap [Moles/Vol] 12.8 mmol/L Normal [facility] Comment on above: Performed By: #### C MP ####[facility] Fntvndhguy58[address] [place], [place] [address]Dr. Airam Tripathi AST [Catalytic activity/Vol] 33 U/L Normal 15-37 [facility] Comment on above: Performed By: #### C MP ####[facility] Vrnfdgzfyr627[address] [place], [place] [address]Dr. Airam Deuce Bilirubin [Mass/Vol] 0.2 mg/dL Normal 0.2-1.0 [facility] Comment on above: Performed By: #### C MP ####[facility] Sjgnvdcedn414[address] [place], [place] [address]Dr. Airam Deuce Calcium [Mass/Vol] 8.3 mg/dL Critically low 8.5-10.1 [facility] Comment on above: Performed By: #### C MP ####[facility] Ijjmvofbhb670[address] [place], [place] [address]Dr. Selenaneil Tripathi Chloride [Moles/Vol] 99 mmol/L Normal 98-107 [facility] Comment on above: Performed By: #### C MP ####[facility] Ujpqdbfejs958[address] [place], [place] [address]Dr. Airam Tripathi CO2 [Moles/Vol] 27.6 mmol/L Normal 21.0-32.0 [facility] Comment on above: Performed By: #### C MP ####[facility] Tmcpfmutcz998[address] [place], [place] [address]Dr. Airam Deuce Creatinine [Mass/Vol] 2.01 mg/dL Critically high 0.55-1.02 [facility] Comment on above: Performed By: #### C MP ####[facility] Bygtygomot378[address] [place], [place] [address]Dr. Airam Tripathi EGFR-AF [place] 31 mL/min/1.73m2 Critically low >=60 [facility] Comment on above: Performed By: #### C MP ####[facility] Kfaqztxram86[address] [place], [place] [address]Dr. Airam Tripathi EGFR-NON AF [place] 25 mL/min/1.73m2 Critically low >=60 [facility] Comment on above: Performed By: #### C MP ####[facility] [address]jidgtasa[address] [place] [address]Dr. Airam Tripathi Globulin (S) [Mass/Vol] 3.2 g/dL Normal [facility] Comment on above: Performed By: #### C MP ####[facility] Owgcrrioyc9345 [place] [address]Dr. Airam Tripathi Glucose [Mass/Vol] 158 mg/dL Critically high 74-106 [facility] Comment on above: Performed By: #### C MP ####[facility] Nkwgjmwtde870[address] [place], [place] [address]Dr. Airam Tripathi Potassium [Moles/Vol] 5.4 mmol/L Critically high 3.5-5.1 [facility] Comment on above: Performed By: #### C MP ####[facility] Rvcngkzxta04110[address] [place], [place] [address]Dr. Airam Tripathi Protein [Mass/Vol] 6.4 g/dL Normal 6.4-8.2 [facility] Comment on above: Performed By: #### C MP ####[facility] Qrksitulzs707[address] [place], [place] [address]Dr. Airam Tripathi Sodium [Moles/Vol] 134 mmol/L Critically low 136-145 [facility] Comment on above: Performed By: #### C MP ####[facility] Xevxfcsvcs801[address] [place], [place] [address]Dr. Airam Tripathi Urea nitrogen [Mass/Vol] 52.0 mg/dL Critically high 7.0-18.0 [facility] Comment on above: Performed By: #### C MP ####[facility] Sfnkniavqg701[address] [place], [place] [address]Dr. Airam Tripathi Urea nitrogen/Creatinine [Mass ratio] 25.9 mg/mg Normal [facility] Comment on above: Performed By: #### C MP ####[facility] Pvpbpvpesv022[address] [place], [place] [address]Dr. Airam Tripathi OSMOLALITYon 05-14-2023 Osmolality [Osmolality] 261 mosm/kg Critically low 275-295 [facility] Comment on above: Performed By: #### O SMO ####[facility] Sjiinrokoj639[address] [place], [place] [address]Dr. Airam Tripathi XR HIPS GUMARO 3_4V WO PELVISon 11-04-2022 XR HIPS GUMARO 3_4V WO PELVIS Normal [facility] XR KNEE LT 4V or >on 023 XR KNEE LT 4V or > Normal [facility] BNPon 11-03-2022 Natriuretic peptide B (Bld) [Mass/Vol] 1168.0 pg/mL Critically high <=900.0 [facility] Comment on above: Performed By: #### B ROENTGENOLOGIST, BMP ####[facility] Dnuccxdvns496[address] [place], [place] [address]Dr. Airam Tripathi CBC AUTO DIFFon 11-03-2022 BASO # 0.0 103/ul Normal 0.0-0.1 [facility] Comment on above: Performed By: #### C BC ####[facility] Vfbuajnmau24[address] [place], [place] [address]Dr. Airam Tripathi Basophils/100 WBC (Bld) 0.3 % Normal 0.2-2.0 [facility] Comment on above: Performed By: #### C BC ####[facility] Psadspktqy595[address] [place], [place] [address]Dr. Airam Tripathi EO # 0.2 103/ul Normal 0.0-0.7 [facility] Comment on above: Performed By: #### C BC ####[facility] Bmyoiujpro5727[address] [place], [place] [address]Dr. Airam Tripathi Eosinophils/100 WBC (Bld) 1.9 % Normal 0.9-7.0 [facility] Comment on above: Performed By: #### C BC ####[facility] Uswzehypfr463[address] [place], [place] [address]Dr. Airam Tripathi Erythrocyte distribution width (RBC) [Ratio] 15.2 % Critically high 11.0-15.0 [facility] Comment on above: Performed By: #### C BC ####[facility] Rxlckbfjya48[address] [place] [address]Dr. Airam Tripathi Hematocrit (Bld) [Volume fraction] 34.3 % Critically low 36.0-48.0 [facility] Comment on above: Performed By: #### C BC ####[facility] Ghdywjgadu383[address] [place], [place] [address]Dr. Airam Tripathi Hemoglobin (Bld) [Mass/Vol] 11.0 g/dL Critically low 12.0-16.0 [facility] Comment on above: Performed By: #### C BC ####[facility] Oegxqtltba449[address] [place], [place] [address]Dr. Airam Tripathi IG # 0.06 10e3/ul Critically high 0.00-0.03 [facility] Comment on above: Performed By: #### C BC ####[facility] Vxwkyzsorq99350[address] [place], [place] [address]Dr. Airam Tripathi IG % 0.5 % Normal 0.0-0.5 [facility] Comment on above: Performed By: #### C BC ####[facility] Rxlhkhxfgr9812[address] [place], [place] [address]Dr. Airam Tripathi LYMPH # 2.3 103/ul Normal 1.2-3.8 [facility] Comment on above: Performed By: #### C BC ####[facility] Jqwxmessbe989[address] [place], [place] [address]Dr. Airam Tripathi Lymphocytes/100 WBC (Bld) 20.4 % Critically low 20.5-60.0 [facility] Comment on above: Performed By: #### C BC ####[facility] Nfjxdoxktt449[address] [place], [place] [address]Dr. Airam Tripathi MANUAL DIFF REQ NO Normal [facility] Comment on above: Performed By: #### C BC ####[facility] Nqrgdrlqdn083[address] [place], [place] [address]Dr. Airam Tripathi MCH (RBC) [Entitic mass] 28.7 pg Normal 26.7-34.0 [facility] Comment on above: Performed By: #### C BC ####[facility] Llffzzdvbw7137 [place] [id number]. Airam Deuce MCHC (RBC) [Mass/Vol] 32.1 g/dL Normal 29.9-35.2 [facility] Comment on above: Performed By: #### C BC ####[facility] Ttbihardph9883 [place] [id number]. Airam Deuce MCV (RBC) [Entitic vol] 89.6 fL Normal 81.0-99.0 [facility] Comment on above: Performed By: #### C BC ####[facility] Mexoeuiyzc[address] [place], [place] [address]Dr. Selenaneil Deuce MONO # 0.9 103/ul Critically high 0.3-0.8 [facility] Comment on above: Performed By: #### C BC ####[facility] Tmsbiatabg598[address] [place], [place] [address]Dr. Airam Tripathi Monocytes/100 WBC (Bld) 8.3 % Normal 1.7-12.0 [facility] Comment on above: Performed By: #### C BC ####[facility] Okumtzykxu9517[address] [place], [place] [address]Dr. Airam Tripathi NEUT # 7.8 103/ul Critically high 1.4-6.5 [facility] Comment on above: Performed By: #### C BC ####[facility] Wenbvxibxu954[address] [place], [place] [address]Dr. Airam Tripathi Neutrophils/100 WBC (Bld) 68.6 % Normal 43.0-75.0 [facility] Comment on above: Performed By: #### C BC ####[facility] Gxzrjaywss7419[address] [place], [place] [address]Dr. Airam Tripathi Platelet mean volume (Bld) [Entitic vol] 8.9 fL Critically low 9.5-13.5 [facility] Comment on above: Performed By: #### C BC ####[facility] Ahxbdowhet227[address] [place], [place] [address]Dr. Airam Tripathi PLT 323 103/ul Normal 150-450 [facility] Comment on above: Performed By: #### C BC ####[facility] Wgsnvtgvzl4347 [place] [id number]. Airam Tripathi RBC 3.83 106/ul Critically low 4.20-5.40 [facility] Comment on above: Performed By: #### C BC ####[facility] Onlwxxlebv9669 [place] [phone]. Airam Tripathi WBC 11.4 103/ul Critically high 4.0-11.0 [facility] Comment on above: Performed By: #### C BC ####[facility] Oanyigqzmy1813 [place] [id number]. Airam Tripathi BASO # 0.0 103/ul Normal 0.0-0.1 [facility] Comment on above: Performed By: #### C BC ####[facility] Qcqlsdculs4527 [place] [phone]. Airam Tripathi Basophils/100 WBC (Bld) 0.2 % Normal 0.2-2.0 [facility] Comment on above: Performed By: #### C BC ####[facility] Advdnbxxfj1926 [place] [id number]. Airam Tripathi EO # 0.1 103/ul Normal 0.0-0.7 [facility] Comment on above: Performed By: #### C BC ####[facility] Npdrmwiusx0784 [place] [id number]. Airam Tripathi Eosinophils/100 WBC (Bld) 0.7 % Critically low 0.9-7.0 [facility] Comment on above: Performed By: #### C BC ####[facility] Uggprnjnnx3160 [place] [phone]. Airam Tripathi Erythrocyte distribution width (RBC) [Ratio] 15.4 % Critically high 11.0-15.0 [facility] Comment on above: Performed By: #### C BC ####[facility] Jywewtkjcs6131 [place] [phone]. Airam Tripathi Hematocrit (Bld) [Volume fraction] 33.6 % Critically low 36.0-48.0 [facility] Comment on above: Performed By: #### C BC ####[facility] Ktcrgzjcqn0990 [place] [address]Dr. Airam Tripathi Hemoglobin (Bld) [Mass/Vol] 10.9 g/dL Critically low 12.0-16.0 [facility] Comment on above: Performed By: #### C BC ####[facility] Jyxeyzbaja3713 [place] [address]Dr. Airam Tripathi IG # 0.04 10e3/ul Critically high 0.00-0.03 [facility] Comment on above: Performed By: #### C BC ####[facility] Vephtlctvh[address] [place], [place] [address]Dr. Airam Tripathi IG % 0.5 % Normal 0.0-0.5 [facility] Comment on above: Performed By: #### C BC ####[facility] Sczmaumnjy018[address] [place], [place] [address]Dr. Airam Tripathi LYMPH # 1.1 103/ul Critically low 1.2-3.8 [facility] Comment on above: Performed By: #### C BC ####[facility] Kgnpyhcims[address] [place], [place] [address]Dr. Airam Tripathi Lymphocytes/100 WBC (Bld) 13.3 % Critically low 20.5-60.0 [facility] Comment on above: Performed By: #### C BC ####[facility] Qckfbnnduj627[address] [place], [place] [address]Dr. Airam Tripathi MANUAL DIFF REQ NO Normal [facility] Comment on above: Performed By: #### C BC ####[facility] Pragahvjys376[address] [place], [place] [address]Dr. Airam Tripathi MCH (RBC) [Entitic mass] 29.1 pg Normal 26.7-34.0 [facility] Comment on above: Performed By: #### C BC ####[facility] Szclyisjud464[address] [place], [place] [address]Dr. Airam Tripathi MCHC (RBC) [Mass/Vol] 32.4 g/dL Normal 29.9-35.2 [facility] Comment on above: Performed By: #### C BC ####[facility] Usqfnjsxhr4083 [place] [phone]. Airam Tripahti MCV (RBC) [Entitic vol] 89.6 fL Normal 81.0-99.0 [facility] Comment on above: Performed By: #### C BC ####[facility] Lqyyekorrt6737 [place] [phone]. Airam Tripathi MONO # 0.5 103/ul Normal 0.3-0.8 [facility] Comment on above: Performed By: #### C BC ####[facility] N[address]crvpfihc[address] [place], [place] [id number]. Airam Tripathi Monocytes/100 WBC (Bld) 6.4 % Normal 1.7-12.0 [facility] Comment on above: Performed By: #### C BC ####[facility] Urwmemqddz010[address] [place], [place] [address]Dr. Airam Tripathi NEUT # 6.5 103/ul Normal 1.4-6.5 [facility] Comment on above: Performed By: #### C BC ####[facility] V[address]fzbbjqf[address] [place], [place] [id number]. Airam Tripathi Neutrophils/100 WBC (Bld) 78.9 % Critically high 43.0-75.0 [facility] Comment on above: Performed By: #### C BC ####[facility] Frreclthfk024[address] [place], [place] [address]Dr. Airam Tripathi Platelet mean volume (Bld) [Entitic vol] 9.4 fL Critically low 9.5-13.5 [facility] Comment on above: Performed By: #### C BC ####[facility] Uankgqmyag[address] [place], [place] [id number]. Airam Tripathi PLT 314 103/ul Normal 150-450 [facility] Comment on above: Performed By: #### C BC ####[facility] Zgexzmmjqk[address]40[address] [place], [place] [id number]. Airam Tripathi RBC 3.75 106/ul Critically low 4.20-5.40 [facility] Comment on above: Performed By: #### C BC ####[facility] Lysjzbmasr9647 [place] [address]Dr. Selenaneil Deuce WBC 8.3 103/ul Normal 4.0-11.0 [facility] Comment on above: Performed By: #### C BC ####[facility] Seggidgyws3071 [place] [address]Dr. Selenaneil Tripathi CT HEAD WO CONon 11-03-2022 CT HEAD WO CON Normal [facility] PROF 14(COMP METB)on 023 Albumin [Mass/Vol] 3.2 g/dL Critically low 3.4-5.0 [facility] Comment on above: Performed By: #### C MP ####[facility] Mqonludmmu[address] [place], [place] [address]Dr. Airam Tripathi Albumin/Globulin [Mass ratio] 0.9 {ratio} Normal [facility] Comment on above: Performed By: #### C MP ####[facility] Kmtqnxprzl58[address] [place], [place] [address]Dr. Airam Tripathi ALP [Catalytic activity/Vol] 109 U/L Normal 46-116 [facility] Comment on above: Performed By: #### C MP ####[facility] Fupztqsmza833[address] [place], [place] [address]Dr. Airam Tripathi ALT [Catalytic activity/Vol] 25 U/L Normal 14-59 [facility] Comment on above: Performed By: #### C MP ####[facility] Wlvmqsjgay0558 [place] [address]Dr. Airam Tripathi Anion gap [Moles/Vol] 10.9 mmol/L Normal [facility] Comment on above: Performed By: #### C MP ####[facility] Aqqumnjfzg1643 [place] [address]Dr. Airam Tripathi AST [Catalytic activity/Vol] 24 U/L Normal 15-37 [facility] Comment on above: Performed By: #### C MP ####[facility] Jjreblhpos4442 [place] [address]Dr. Airam Tripathi Bilirubin [Mass/Vol] 0.3 mg/dL Normal 0.2-1.0 [facility] Comment on above: Performed By: #### C MP ####[facility] Mbrkxvksci5866 [place] [address]Dr. Airam Tripathi Calcium [Mass/Vol] 8.6 mg/dL Normal 8.5-10.1 [facility] Comment on above: Performed By: #### C MP ####[facility] Mmhrdzpjan3758 [place] [address]Dr. Airam Tripathi Chloride [Moles/Vol] 95 mmol/L Critically low 98-107 [facility] Comment on above: Performed By: #### C MP ####[facility] Ocrqtgqlix1822 [place] [address]Dr. Airam Tripathi CO2 [Moles/Vol] 27.8 mmol/L Normal 21.0-32.0 [facility] Comment on above: Performed By: #### C MP ####[facility] Wkzfkdhzrw[address] [place], [place] [address]Dr. Airam Tripathi Creatinine [Mass/Vol] 1.07 mg/dL Critically high 0.55-1.02 [facility] Comment on above: Performed By: #### C MP ####[facility] Bknsbalswd36[address] [place], [place] [address]Dr. Airam Tripathi EGFR-AF [place] >60 Normal >=60 [facility] Comment on above: Performed By: #### C MP ####[facility] Yopbjqpriv2583 [place] [address]Dr. Airam Tripathi EGFR-NON AF [place] 52 mL/min/1.73m2 Critically low >=60 [facility] Comment on above: Performed By: #### C MP ####[facility] Hffdkmgtts0659 [place] [address]Dr. Airam Tripathi Globulin (S) [Mass/Vol] 3.5 g/dL Normal [facility] Comment on above: Performed By: #### C MP ####[facility] Fbahdyvqab9695 [place] [address]Dr. Airam Deuce Glucose [Mass/Vol] 86 mg/dL Normal 74-106 [facility] Comment on above: Performed By: #### C MP ####[facility] Duyzpwpmzj8160 [place] [phone]. Airam Tripathi Potassium [Moles/Vol] 4.7 mmol/L Normal 3.5-5.1 [facility] Comment on above: Performed By: #### C MP ####[facility] Ulojueuaqd0028 [place] [id number]. Airam Tripathi Protein [Mass/Vol] 6.7 g/dL Normal 6.4-8.2 [facility] Comment on above: Performed By: #### C MP ####[facility] Ccpqyyjfaz[address] [place], [place] [id number]. Airam Tripathi Sodium [Moles/Vol] 129 mmol/L Critically low 136-145 [facility] Comment on above: Performed By: #### C MP ####[facility] Jcocjrmkhj37020[address] [place], [place] [address]Dr. Airam Tripathi Urea nitrogen [Mass/Vol] 19.0 mg/dL Critically high 7.0-18.0 [facility] Comment on above: Performed By: #### C MP ####[facility] Tdgfhvjlfp732[address] [place], [place] [address]Dr. Airam Tripathi Urea nitrogen/Creatinine [Mass ratio] 17.8 mg/mg Normal [facility] Comment on above: Performed By: #### C MP ####[facility] Syfklzspbm202[address] [place], [place] [address]Dr. Airam Tripathi PROF CHEM 8 (BAS METB)on Anion gap [Moles/Vol] 9.0 mmol/L Normal [facility] Comment on above: Performed By: #### B ROENTGENOLOGIST, BMP ####[facility] Sobhbkqoki[address] [place], [place] [id number]. Airam Tripathi Calcium [Mass/Vol] 8.5 mg/dL Normal 8.5-10.1 [facility] Comment on above: Performed By: #### B ROENTGENOLOGIST, BMP ####[facility] Nmcboqleov[address] [place], [place] [id number]. Airam Tripathi Chloride [Moles/Vol] 93 mmol/L Critically low 98-107 [facility] Comment on above: Performed By: #### B ROENTGENOLOGIST, BMP ####[facility] Dsfjqnsjif458[address] [place], [place] [address]Dr. Selenaneil Tripathi CO2 [Moles/Vol] 28.1 mmol/L Normal 21.0-32.0 [facility] Comment on above: Performed By: #### B ROENTGENOLOGIST, BMP ####[facility] Yytwnayyfw176[address] [place], [place] [address]Dr. Selenaneil Deuce Creatinine [Mass/Vol] 1.17 mg/dL Critically high 0.55-1.02 [facility] Comment on above: Performed By: #### B ROENTGENOLOGIST, BMP ####[facility] Yhftwhmkct486[address] [place], [place] [address]Dr. Airam Tripathi EGFR-AF [place] 57 mL/min/1.73m2 Critically low >=60 [facility] Comment on above: Performed By: #### B ROENTGENOLOGIST, BMP ####[facility] Eirbkgqggb386[address] [place], [place] [address]Dr. Airam Tripathi EGFR-NON AF [place] 47 mL/min/1.73m2 Critically low >=60 [facility] Comment on above: Performed By: #### B ROENTGENOLOGIST, BMP ####[facility] Vsjmojecab[address] [place], [place] [address]Dr. Airam Tripathi Glucose [Mass/Vol] 107 mg/dL Critically high 74-106 [facility] Comment on above: Performed By: #### B ROENTGENOLOGIST, BMP ####[facility] Klblejmyss[address] [place], [place] [address]Dr. Airam Tripathi Potassium [Moles/Vol] 4.1 mmol/L Normal 3.5-5.1 [facility] Comment on above: Performed By: #### B ROENTGENOLOGIST, BMP ####[facility] Ugddvsjxha454[address] [place], [place] [address]Dr. Airam Tripathi Sodium [Moles/Vol] 126 mmol/L Critically low 136-145 [facility] Comment on above: Performed By: #### B ROENTGENOLOGIST, BMP ####[facility] Fqvvdzlqsf64[address] [place], [place] [address]Dr. Airam Tripathi Urea nitrogen [Mass/Vol] 20.0 mg/dL Critically high 7.0-18.0 [facility] Comment on above: Performed By: #### B ROENTGENOLOGIST, VERONICA ####[facility] Qiaxnveuls2078 [place], [place] [address]Kr. Airam Tripathi Urea nitrogen/Creatinine [Mass ratio] 17.1 mg/mg Normal [facility] Comment on above: Performed By: #### B ROENTGENOLOGIST, BMP ####[facility] Mddfstzkqi0720 [place], [place] [address]Jr. Airam Tripathi XR CHEST 1 Von 11-03-2022 XR CHEST 1 V Normal [facility] Activated partial thrombopla stin time (aPTT) in platelet poor plasma by coagulation aOrdered By: Favian Helm on 10-28-2022 aPTT Coag (PPP) [Time] 31.7 s 25.1-36.5 [facility] Alanine aminotransferase [En zymatic activity/volume] in Serum or PlasmaOrdered By: Favian Helm on 10-28-2022 ALT [Catalytic activity/Vol] 14 U/L 7-52 [facility] Albumin [Mass/volume] in Ser um or Plasma by Bromocresol green (BCG) dye binding methoOrdered By: Favian Helm on 10-28-2022 Albumin BCG dye [Mass/Vol] 3.6 g/dL 3.5-5.7 [facility] Alkaline phosphatase [Enzyma tic activity/volume] in Serum or PlasmaOrdered By: Favian Helm on 10-28-2022 ALP [Catalytic activity/Vol] 84 U/L 34-104 [facility] Aspartate aminotransferase [ Enzymatic activity/volume] in Serum or PlasmaOrdered By: Favian Helm on 10-28-2022 AST [Catalytic activity/Vol] 21 U/L 13-39 [facility] B-Type Natriuretic Peptideon 10-28-2022 Natriuretic peptide B (Bld) [Mass/Vol] 551.0 pg/mL High 5-100 [facility] Comment on above: Result Comment: PERF ORMED BY: [place] [address] [place] [address] PATHOLOGIST [employer] ATTENDANT TANNER GAVIN M.D. Performed By: #### V [id number], MG, BMP, JOSE, FE and TIBC, RETIC #### [address] Basophils Auto (Bld) [#/Vol] Ordered By: Favian Helm on 10-28-2022 Basophils (Bld) [#/Vol] 0.0 10*3/uL 0.0-0.2 [facility] Basophils/100 WBC Auto (Bld) Ordered By: Favian Helm on 10-28-2022 Basophils/100 WBC (Bld) 0.4 % . [facility] Bilirubin.total [Mass/volume ] in Serum or PlasmaOrdered By: Favian Helm on 10-28-2022 Bilirubin [Mass/Vol] 0.3 mg/dL 0.3-1.[address] [facility] [address] head/brain wo conon 10-28 CT head/brain wo con [facility] [place] [address] [place] [address] CT Scan Report Signed Patient: Mabel Moser MR#: [id number] : 1960 Acct:[id number] Age/Sex: 62 / F ADM Date: 10/28/22 Loc: ER Room: Type: [facility] ER Attending Dr: Copies to: Favian Helm PA-C Ordering Provider: Favian Heml PA-C Date of Service: 10/28/22 CT/CT head/brain [...] Baljinder Ball M.D.10/28/2022 7:46 PM Dictation Location: [place] [address] Transcribed By: [facility] 10/28/221945 Dictated By: Baljinder Ball DO 10/28/221934 Signed By: 10/28/221945 Normal [facility] Calcium [Mass/volume] in Ser um or PlasmaOrdered By: Favian Helm on 10-28-2022 Calcium [Mass/Vol] 8.2 mg/dL 8.6-10.3 [facility] Carbon dioxide, total [Moles /volume] in Serum or PlasmaOrdered By: Favian Helm on 10-28-2022 CO2 [Moles/Vol] 25.7 mmol/L 21.0-31.0 [facility] Chloride [Moles/volume] in S andrea or PlasmaOrdered By: Favian Helm on 10-28-2022 Chloride [Moles/Vol] 98 mmol/L 98-107 [facility] Complete Blood Count Auto Di ffon 10-28-2022 Basophils (Bld) [#/Vol] 0.0 10*3/uL Normal 0.0-0.2 [facility] Comment on above: Result Comment: PERF ORMED BY: [facility] [address] [place] [address] PATHOLOGIST [employer]ING [employer] ATTENDANT TANNER GAVIN M.D. Performed By: #### V [id number], MG, BMP, JOSE, FE and TIBC, RETIC #### [facility] [address] [place] [address] [place] Basophils/100 WBC (Bld) 0.4 % Normal . [facility] Comment on above: Performed By: #### V [id number], MG, BMP, JOSE, FE and TIBC, RETIC #### [facility] [address] [place] [address] [place] Eosinophils (Bld) [#/Vol] 0.1 10*3/uL Normal 0.0-0.45 [facility] Comment on above: Performed By: #### V [id number], MG, BMP, JOSE, FE and TIBC, RETIC #### [address] Eosinophils/100 WBC (Bld) 1.0 % Normal . [facility] Comment on above: Performed By: #### V [id number], MG, BMP, JOSE, FE and TIBC, RETIC #### [address] Erythrocyte distribution width (RBC) [Ratio] 16.5 % High 11.9-15.3 [facility] Comment on above: Performed By: #### V [id number], MG, BMP, JOSE, FE and TIBC, RETIC #### [address] Hematocrit (Bld) [Volume fraction] 29.9 % Low 34.0-46.4 [facility] Comment on above: Performed By: #### V [id number], MG, BMP, JOSE, FE and TIBC, RETIC #### [address] Hemoglobin (Bld) [Mass/Vol] 9.6 g/dL Low 11.8-15.4 [facility] Comment on above: Performed By: #### V [id number], MG, BMP, JOSE, FE and TIBC, RETIC #### [address] Lymphocytes (Bld) [#/Vol] 0.8 10*3/uL Low 1.00-4.8 [facility] Comment on above: Performed By: #### V [id number], MG, BMP, JOSE, FE and TIBC, RETIC #### [address] Lymphocytes/100 WBC (Bld) 12.8 % Normal . [facility] Comment on above: Performed By: #### V [id number], MG, BMP, JOSE, FE and TIBC, RETIC #### [address] MCH (RBC) [Entitic mass] 28.3 pg Normal 24.7-34.3 [facility] Comment on above: Performed By: #### V [id number], MG, BMP, JOSE, FE and TIBC, RETIC #### [address] MCV (RBC) [Entitic vol] 88.3 fL Normal 80-100 [facility] Comment on above: Performed By: #### V [id number], MG, BMP, JOSE, FE and TIBC, RETIC #### [address] Mean Corpuscular HGB Conc 32.0 g/dL Normal 32.0-35.0 [facility] Comment on above: Performed By: #### V [id number], MG, BMP, JOSE, FE and TIBC, RETIC #### [address] Monocytes (Bld) [#/Vol] 0.2 10*3/uL Normal 0.0-0.8 [facility] Comment on above: Performed By: #### V [id number], MG, BMP, JOSE, FE and TIBC, RETIC #### [address] Monocytes/100 WBC (Bld) 17.29 % Normal 0.00-20.00 [facility] Comment on above: Performed By: #### V [id number], MG, BMP, JOSE, FE and TIBC, RETIC #### [address] Monocytes/100 WBC (Bld) 2.5 % Normal . [facility] Comment on above: Performed By: #### V [id number], MG, BMP, JOSE, FE and TIBC, RETIC #### [address] Neutrophils (Bld) [#/Vol] 5.5 10*3/uL Normal 1.8-7.7 [facility] Comment on above: Performed By: #### V [id number], MG, BMP, JOSE, FE and TIBC, RETIC #### [address] Neutrophils/100 WBC (Bld) 83.3 % Normal . [facility] Comment on above: Performed By: #### V [id number], MG, BMP, JOSE, FE and TIBC, RETIC #### [address] NRBC% 0.0 /100{WBC} Normal 0-0.5 [facility] Comment on above: Performed By: #### V [id number], MG, BMP, JOSE, FE and TIBC, RETIC #### [address] Platelet mean volume (Bld) [Entitic vol] 7.3 fL Normal 6.3-10.7 [facility] Comment on above: Performed By: #### V [id number], MG, BMP, JOSE, FE and TIBC, RETIC #### [address] Platelets (Bld) [#/Vol] 260 10*3/uL Normal 150-450 [facility] Comment on above: Performed By: #### V [id number], MG, BMP, JOSE, FE and TIBC, RETIC #### [address] RBC (Bld) [#/Vol] 3.38 10*6/uL Low 3.60-5.00 [facility] Comment on above: Performed By: #### V [id number], MG, BMP, JOSE, FE and TIBC, RETIC #### [address] WBC (Bld) [#/Vol] 6.6 10*3/uL Normal 3.8-11.6 [facility] Comment on above: Performed By: #### V [id number], MG, BMP, JOSE, FE and TIBC, RETIC #### [facility] [address] Comprehensive Metabolic Pane elena 10-28-2022 Albumin [Mass/Vol] 3.6 g/dL Normal 3.5-5.7 [facility] Comment on above: Performed By: #### V [id number], MG, BMP, JOSE, FE and TIBC, RETIC #### [address] Albumin/Globulin [Mass ratio] 1.6 {ratio} Normal [facility] Comment on above: Performed By: #### V [id number], MG, BMP, JOSE, FE and TIBC, RETIC #### [address] ALP [Catalytic activity/Vol] 84 U/L Normal 34-104 [facility] Comment on above: Performed By: #### V [id number], MG, BMP, JOSE, FE and TIBC, RETIC #### [address] ALT [Catalytic activity/Vol] 14 U/L Normal 7-52 [facility] Comment on above: Performed By: #### V [id number], MG, BMP, JOSE, FE and TIBC, RETIC #### [address] Anion gap [Moles/Vol] 10.0 mmol/L Normal 6.0-15.0 [facility] Comment on above: Performed By: #### V [id number], MG, BMP, JOSE, FE and TIBC, RETIC #### [address] AST [Catalytic activity/Vol] 21 U/L Normal 13-39 [facility] Comment on above: Performed By: #### V [id number], MG, BMP, JOSE, FE and TIBC, RETIC #### [address] Bilirubin [Mass/Vol] 0.3 mg/dL Normal 0.3-1.0 [facility] Comment on above: Performed By: #### V [id number], MG, BMP, JOSE, FE and TIBC, RETIC #### [facility] [address] Calcium [Mass/Vol] 8.2 mg/dL Low 8.6-10.3 [facility] Comment on above: Performed By: #### V IPI07OQS, MG, BMP, JOSE, FE and TIBC, RETIC #### [facility] [address] Chloride [Moles/Vol] 98 mmol/L Normal 98-107 [facility] Comment on above: Performed By: #### V [id number], MG, BMP, JOSE, FE and TIBC, RETIC #### [facility] [address] CO2 [Moles/Vol] 25.7 mmol/L Normal 21.0-31.0 [facility] Comment on above: Performed By: #### V [id number], MG, BMP, JOSE, FE and TIBC, RETIC #### [facility] [address] Creatinine [Mass/Vol] 1.23 mg/dL High 0.60-1.20 [facility] Comment on above: Performed By: #### V [id number], MG, BMP, JOSE, FE and TIBC, RETIC #### [facility] [address] Creatinine Clr Calc Pharmacy 48.79 [facility] Comment on above: Performed By: #### V [id number], MG, BMP, JOSE, FE and TIBC, RETIC #### [facility] [address] [place] [address] [place] GFR/1.73 sq M.predicted MDRD (S/P/Bld) [Vol rate/Area] 50.309 mL/min/{1.73_m2} [facility] Comment on above: Performed By: #### V [id number], MG, BMP, JOSE, FE and TIBC, RETIC #### [facility] [address] Globulin (S) [Mass/Vol] 2.3 g/dL Normal [facility] Comment on above: Performed By: #### V [id number], MG, BMP, JOES, FE and TIBC, RETIC #### [address] Glucose [Mass/Vol] 98 mg/dL Normal 70-100 [facility] Comment on above: Result Comment: [facility] Glucose Reference Range is dependent on time and content of last meal. Glucose of more than 200 mg/dL in a nonstressed, ambulatory subject supports the diagnosis of Diabetes Mellitus. ADA recommended reference range Performed By: #### V [id number], MG, BMP, JOSE, FE and TIBC, RETIC #### [address] Potassium [Moles/Vol] 4.7 mmol/L Normal 3.5-5.1 [facility] Comment on above: Performed By: #### V [id number], MG, BMP, JOSE, FE and TIBC, RETIC #### [address] Protein [Mass/Vol] 5.9 g/dL Low 6.4-8.9 [facility] Comment on above: Performed By: #### V [id number], MG, BMP, JOSE, FE and TIBC, RETIC #### [address] Sodium [Moles/Vol] 129 mmol/L Low 136-145 [facility] Comment on above: Performed By: #### V [id number], MG, BMP, JOSE, FE and TIBC, RETIC #### [address] Urea nitrogen [Mass/Vol] 36 mg/dL High 7-25 [facility] Comment on above: Performed By: #### V [id number], MG, BMP, JOSE, FE and TIBC, RETIC #### [place] [address] [facility] Creatine Kinaseon 10-28-2022 CK [Catalytic activity/Vol] 45 U/L Normal [facility] Comment on above: Performed By: #### V [id number], MG, BMP, JOSE, FE and TIBC, RETIC #### [facility] [address] [place] [id number] [facility] Creatine kinase [Enzymatic a ctivity/volume] in Serum or PlasmaOrdered By: Favian Helm on 10-28-2022 CK [Catalytic activity/Vol] 45 U/L [facility] Creatinine [Mass/volume] in Serum or PlasmaOrdered By: Favian Helm on 10-28-2022 Creatinine [Mass/Vol] 1.23 mg/dL 0.60-1.20 [facility] ECG 12 lead ECGon 10-28-2022 ECG 12 lead ECG [facility] [place] [address] [place] [address] Electrocardiograph Report Signed Patient: Mabel Moser MR#: [id number] : 1960 Acct:[id number] Age/Sex: 62 / F ADM Date: 10/28/22 Loc: ER Room: Type: [facility] ER Attending Dr: Ordering Provider: [...] normal variant Confirmed by Chris MAURO DO ([id number]) on 10/28/2022 8:40:44 PM Referred By: Electronically Signed By:Chris MAURO DO Transcribed By: MUS Signed By Chris Mauro DO 0 10/28/222039 Normal [facility] Eosinophils Auto (Bld) [#/Vo l]Ordered By: Favian Helm on 10-28-2022 Eosinophils (Bld) [#/Vol] 0.1 10*3/uL 0.0-0.45 [facility] Eosinophils/100 WBC Auto (Bl d)Ordered By: Favian Helm on 10-28-2022 Eosinophils/100 WBC (Bld) 1.0 % . [facility] Erythrocyte distribution wid th Auto (RBC) [Ratio]Ordered By: Favian Helm on 10-28-2022 Erythrocyte distribution width (RBC) [Ratio] 16.5 % 11.9-15.3 [facility] Globulin Calc (S) [Mass/Vol] Ordered By: Favian Helm on 10-28-2022 Globulin (S) [Mass/Vol] 2.3 g/dL [facility] Glucose [Mass/volume] in Ser um or PlasmaOrdered By: Favian Helm on 10-28-2022 Glucose [Mass/Vol] 98 mg/dL 70-100 [facility] Comment on above: ADA recommended refe rence rangeRandom Glucose Reference Range is dependent on time and content of last meal. Glucose of more than 200 mg/dL in a nonstressed, ambulatory subject supports the diagnosis of Diabetes Mellitus. Hematocrit Auto (Bld) [Volum e fraction]Ordered By: Favian Helm on 10-28-2022 Hematocrit (Bld) [Volume fraction] 29.9 % 34.0-46.4 [facility] Hemoglobin [Mass/volume] in BloodOrdered By: Favian Helm 10-28-2022 Hemoglobin (Bld) [Mass/Vol] 9.6 g/dL 11.8-15.4 [facility] Laboratory - CoagulationOrde red By: Favian Helm on 10-28-2022 PT Coag (PPP) [Time] 11.0 s 9.0-12.9 [facility] Leukocytes [#/volume] correc nicol for nucleated erythrocytes in Blood by Automated counOrdered By: Favian Helm on 10-28-2022 WBC corrected for nucl RBC Auto (Bld) [#/Vol] 6.6 10*3/uL 3.8-11.6 [facility] Lymphocytes Auto (Bld) [#/Vo l]Ordered By: Favian Helm on 10-28-2022 Lymphocytes (Bld) [#/Vol] 0.8 10*3/uL 1.00-4.8 [facility] Lymphocytes/100 WBC Auto (Bl d)Ordered By: Favian Helm on 10-28-2022 Lymphocytes/100 WBC (Bld) 12.8 % . [facility] MCH Auto (RBC) [Entitic mass ]Ordered By: Favian Helm on 10-28-2022 MCH (RBC) [Entitic mass] 28.3 pg 24.7-34.3 [facility] MCHC Auto (RBC) [Mass/Vol]Or dered By: Favian Helm on 10-28-2022 MCHC (RBC) [Mass/Vol] 32.0 g/dL 32.0-35.0 [facility] MCV Auto (RBC) [Entitic vol] Ordered By: Favian Helm on 10-28-2022 MCV (RBC) [Entitic vol] 88.3 fL 80-100 [facility] Magnesiumon 10-28-2022 Magnesium [Mass/Vol] 1.9 mg/dL Normal 1.9-2.7 [facility] Comment on above: Result Comment: PERF ORMED BY: [place] [address] PATHOLOGIST [employer]ENDANT TANNER GAVIN M.D. Performed By: #### V [id number], MG, BMP, JOSE, FE and TIBC, RETIC #### [address] Magnesium [Mass/volume] in S andrea or PlasmaOrdered By: Favian Helm on 10-28-2022 Magnesium [Mass/Vol] 1.9 mg/dL 1.9-2.7 [facility] Monocyte distribution width [Entitic volume] in Blood by AutomatedOrdered By: Favian Helm on 10-28-2022 Monocyte distribution width Auto (Bld) [Entitic vol] 17.29 % 0.00-20.00 [facility] Monocytes Auto (Bld) [#/Vol] Ordered By: Favian Helm on 10-28-2022 Monocytes (Bld) [#/Vol] 0.2 10*3/uL 0.0-0.8 [facility] Monocytes/100 WBC Auto (Bld) Ordered By: Favian Helm on 10-28-2022 Monocytes/100 WBC (Bld) 2.5 % . [facility] Natriuretic peptide B [Mass/ Vol]Ordered By: Favian Helm on 10-28-2022 Natriuretic peptide B (Bld) [Mass/Vol] 551.0 pg/mL 5-100 [facility] Neutrophils Auto (Bld) [#/Vo l]Ordered By: Favian Helm on 10-28-2022 Neutrophils (Bld) [#/Vol] 5.5 10*3/uL 1.8-7.7 [facility] Neutrophils/100 WBC Auto (Bl d)Ordered By: Favian Helm on 10-28-2022 Neutrophils/100 WBC (Bld) 83.3 % . [facility] No Panel InformationOrdered By: Favian Helm on 10-28-2022 Estimated GFR (CKD-EPI) 50.309 mL/Min [facility] Creatinine Clearance (Chem 48.79 [facility] Nucleated erythrocytes [Pres ence] in Blood by Automated countOrdered By: Favian Helm on 10-28-2022 Nucleated RBC Auto Ql (Bld) 0.0 /100{WBC} 0-0.5 [facility] Partial Thromboplastin Timeo n 10-28-2022 aPTT Coag (Bld) [Time] 31.7 s Normal 25.1-36.5 [facility] Comment on above: Result Comment: PERF ORMED BY: [facility] [address] [place] [address] PATHOLOGIST [employer] ATTENDANT TANNER GAVIN M.D. Performed By: #### V [id number], MG, BMP, JOSE, FE and TIBC, RETIC #### [facility] [address] Platelet mean volume Auto (B ld) [Entitic vol]Ordered By: Favian Helm on 10-28-2022 Platelet mean volume (Bld) [Entitic vol] 7.3 fL 6.3-10.7 [facility] Platelet poor plasma interna tional normalized ratio (INR) by coagulation assay (relatOrdered By: Favian Helm on 10-28-2022 INR Coag (PPP) [Relative time] 1.0 {INR} [facility] Comment on above: INR Therapeutic Rang [...] 10-28-2022 Platelets (Bld) [#/Vol] 260 10*3/uL 150-450 [facility] Potassium [Moles/volume] in Serum or PlasmaOrdered By: Favian Helm on 10-28-2022 Potassium [Moles/Vol] 4.7 mmol/L 3.5-5.1 [facility] Protein [Mass/volume] in Ser um or PlasmaOrdered By: Favian Helm on 10-28-2022 Protein [Mass/Vol] 5.9 g/dL 6.4-8.9 [facility] Prothrombin Time INRon 10-28 INR Coag (PPP) [Relative time] 1.0 {INR} Normal [facility] Comment on above: Result Comment: INR [...] 3 - 4.5 Performed By: #### V [id number], MG, BMP, JOSE, FE and TIBC, RETIC #### [facility] [address] [place] [address] [place] PT Coag (PPP) [Time] 11.0 s Normal 9.0-12.9 [facility] Comment on above: Performed By: #### V [id number], MG, BMP, JOSE, FE and TIBC, RETIC #### [facility] [address] [place] [address] [place] RBC Auto (Bld) [#/Vol]Ordere d By: Favian Helm on 10-28-2022 RBC (Bld) [#/Vol] 3.38 10*6/uL 3.60-5.00 [facility] Serum or plasma albumin/glob ulin mass ratioOrdered By: Favian Helm on 10-28-2022 Albumin/Globulin [Mass ratio] 1.6 {ratio} [facility] Serum or plasma anion gap de terminationOrdered By: Favian Helm on 10-28-2022 Anion gap [Moles/Vol] 10.0 mmol/L 6.0-15.0 [facility] Sodium [Moles/volume] in Ser um or PlasmaOrdered By: Favian Helm on 10-28-2022 Sodium [Moles/Vol] 129 mmol/L 136-145 [facility] Troponin I High Sensitivityo n 10-28-2022 Troponin I High Sensitivity 5.8 pg/mL Normal 0.0-15.0 [facility] Comment on above: Result Comment: PERF ORMED BY: [facility] [address] [place] [address] PATHOLOGIST [employer] ATTENDANT TANNER GAVIN M.D. Performed By: #### V GMP44PET, MG, BMP, JOSE, FE and TIBC, RETIC #### [address] Troponin I.cardiac [Mass/vol ume] in Serum or Plasma by Detection limit <= 0.01 ng/Ordered By: Favian Helm on 10-28-2022 Troponin I.cardiac DL <= 0.01 ng/mL [Mass/Vol] 5.8 pg/mL 0.0-15.0 [facility] Urea nitrogen [Mass/volume] in Serum or PlasmaOrdered By: Favian Helm on 10-28-2022 Urea nitrogen [Mass/Vol] 36 mg/dL 7-25 [facility] WBC Auto (Bld) [#/Vol]Ordere d By: Favian Helm on 10-28-2022 WBC (Bld) [#/Vol] 6.6 10*3/uL 3.8-11.6 [facility] XR chest 2V*on 10-28-2022 XR chest 2V* [facility] [place] [address] [place] [address] XRay Report Signed Patient: Mabel Moser MR#: [id number] : 1960 Acct:[id number] Age/Sex: 62 / F ADM Date: 10/28/22 Loc: ER Room: Type: [facility] ER Attending Dr: Copies to: Favian Helm PA-C Ordering Provider: Favian Helm PA-C Date of Service: 10/28/22 XR/XR chest 2V*: Shortness of Breath/Dyspnea Plain film chest 2 view HISTORY: Fluid overload. Shortness of breath. Headache. COMPARISON: 08/31/2018 FINDINGS: SUPPORT DEVICES: None POSTSURGICAL CHANGES: Right Fsrhyc-m-Lrzd intact with tip overlying the distal SVC. HEART: Within normal limits PULMONARY RAI: Within normal limits MEDIASTINUM: Unremarkable LUNGS AND PLEURA: No acute lung process, pleural effusion or pneumothorax identified. BONY STRUCTURES: Intact ADDITIONAL FINDINGS None XR/XR chest 2V* IMPRESSION: No acute process. Impression dictated by: Baljinder Ball M.D.10/28/2022 7:50 PM Dictation Location: [place] [address] Transcribed By: [facility] 10/28/221949 Dictated By: Baljinder Ball DO 10/28/221945 Signed By: 10/28/221949 Normal [facility] BNPon 10-26-2022 Natriuretic peptide B (Bld) [Mass/Vol] 2657.0 pg/mL Critically high <=900.0 [facility] Comment on above: Performed By: #### C MP, BNP ####[facility] [address] [place] [address]Dr. Airam Tripathi CBC AUTO DIFFon 10-26-2022 BASO # 0.0 103/ul Normal 0.0-0.1 [facility] Comment on above: Performed By: #### C BC ####[facility] [address] [place] [address]DrKianna Tripathi Basophils/100 WBC (Bld) 0.5 % Normal 0.2-2.0 [facility] Comment on above: Performed By: #### C BC ####[facility] [address] [place], [place] [address]Dr. Airam Tripathi EO # 0.3 103/ul Normal 0.0-0.7 [facility] Comment on above: Performed By: #### C BC ####[facility] [address] [place], [place] [address]Dr. Airam Tripathi Eosinophils/100 WBC (Bld) 4.8 % Normal 0.9-7.0 [facility] Comment on above: Performed By: #### C BC ####[facility] [address] [place], [place] [address]Dr. Airam Tripathi Erythrocyte distribution width (RBC) [Ratio] 15.5 % Critically high 11.0-15.0 [facility] Comment on above: Performed By: #### C BC ####[facility] [address] [place], [place] [address]Dr. Airam Tripathi Hematocrit (Bld) [Volume fraction] 27.7 % Critically low 36.0-48.0 [facility] Comment on above: Performed By: #### C BC ####[facility] [address] [place], [place] [address]Dr. Airam Tripathi Hemoglobin (Bld) [Mass/Vol] 8.8 g/dL Critically low 12.0-16.0 [facility] Comment on above: Performed By: #### C BC ####[facility] [address] [place], [place] [address]Dr. Airam Tripathi IG # 0.03 10e3/ul Normal 0.00-0.03 [facility] Comment on above: Performed By: #### C BC ####[facility] [address] [place], [place] [address]Dr. Airam Tripathi IG % 0.5 % Normal 0.0-0.5 [facility] Comment on above: Performed By: #### C BC ####[facility] [address] [place], [place] [address]DrKianna Tripathi LYMPH # 1.6 103/ul Normal 1.2-3.8 [facility] Comment on above: Performed By: #### C BC ####[facility] [address] [place] [address]DrKianna Tripathi Lymphocytes/100 WBC (Bld) 25.5 % Normal 20.5-60.0 [facility] Comment on above: Performed By: #### C BC ####[facility] [address] [place], [place] [address]DrKianna Tripathi MANUAL DIFF REQ NO Normal [facility] Comment on above: Performed By: #### C BC ####[facility] [address] [place], [place] [address]DrKianna Tripathi MCH (RBC) [Entitic mass] 29.0 pg Normal 26.7-34.0 [facility] Comment on above: Performed By: #### C BC ####[facility] [address] [place], [place] [address]Dr. Airam Tripathi MCHC (RBC) [Mass/Vol] 31.8 g/dL Normal 29.9-35.2 [facility] Comment on above: Performed By: #### C BC ####[facility] [address] [place], [place] [address]DrKianna Tripathi MCV (RBC) [Entitic vol] 91.4 fL Normal 81.0-99.0 [facility] Comment on above: Performed By: #### C BC ####[facility] [address] [place], [place] [address]DrKianna Tripathi MONO # 0.5 103/ul Normal 0.3-0.8 [facility] Comment on above: Performed By: #### C BC ####[facility] [address] [place], [place] [address]DrKianna Tripathi Monocytes/100 WBC (Bld) 7.5 % Normal 1.7-12.0 [facility] Comment on above: Performed By: #### C BC ####[facility] [address] [place], [place] [address]DrKianna Tripathi NEUT # 3.9 103/ul Normal 1.4-6.5 [facility] Comment on above: Performed By: #### C BC ####[facility] [address] [place] [address]DrKianna Tripathi Neutrophils/100 WBC (Bld) 61.2 % Normal 43.0-75.0 [facility] Comment on above: Performed By: #### C BC ####[facility] [address] [place] [address]DrKianna Tripathi Platelet mean volume (Bld) [Entitic vol] 9.4 fL Critically low 9.5-13.5 [facility] Comment on above: Performed By: #### C BC ####[facility] [address] [place], [place] [address]DrKianna Tripathi PLT 247 103/ul Normal 150-450 [facility] Comment on above: Performed By: #### C BC ####[facility] [address] [place], [place] [address]DrKianna Tripathi RBC 3.03 106/ul Critically low 4.20-5.40 [facility] Comment on above: Performed By: #### C BC ####[facility] [address] [place], [place] [address]DrKianna Tripathi WBC 6.4 103/ul Normal 4.0-11.0 [facility] Comment on above: Performed By: #### C BC ####[facility] [address] [place], [place] [address]DrKianna Tripathi PROF 14(COMP METB)on 023 Albumin [Mass/Vol] 2.5 g/dL Critically low 3.4-5.0 [facility] Comment on above: Performed By: #### C MP, BNP ####[facility] [address] [place], [place] [address]DrKianna Tripathi Albumin/Globulin [Mass ratio] 0.9 {ratio} Normal [facility] Comment on above: Performed By: #### C MP, BNP ####[facility] [address] [place], [place] [address]DrKianna Tripathi ALP [Catalytic activity/Vol] 108 U/L Normal 46-116 [facility] Comment on above: Performed By: #### C MP, BNP ####[facility] [address] [place], [place] [address]Dr. Airam Tripathi ALT [Catalytic activity/Vol] 20 U/L Normal 14-59 [facility] Comment on above: Performed By: #### C MP, BNP ####[facility] [address] [place], [place] [address]Dr. Airam Tripathi Anion gap [Moles/Vol] 10.4 mmol/L Normal [facility] Comment on above: Performed By: #### C MP, BNP ####[facility] [address] [place], [place] [address]Dr. Airam Tripathi AST [Catalytic activity/Vol] 20 U/L Normal 15-37 [facility] Comment on above: Performed By: #### C MP, BNP ####[facility] [address] [place], [place] [address]Dr. Airam Tripathi Bilirubin [Mass/Vol] 0.2 mg/dL Normal 0.2-1.0 [facility] Comment on above: Performed By: #### C MP, BNP ####[facility] [address] [place], [place] [address]Dr. Airam Tripathi Calcium [Mass/Vol] 8.0 mg/dL Critically low 8.5-10.1 [facility] Comment on above: Performed By: #### C MP, BNP ####[facility] [address] [place], [place] [address]Dr. Airam Tripathi Chloride [Moles/Vol] 100 mmol/L Normal 98-107 [facility] Comment on above: Performed By: #### C MP, BNP ####[facility] [address] [place], [place] [address]Dr. Airam Tripathi CO2 [Moles/Vol] 28.6 mmol/L Normal 21.0-32.0 [facility] Comment on above: Performed By: #### C MP, BNP ####[facility] [address] [place], [place] [address]Dr. Airam Tripathi Creatinine [Mass/Vol] 1.66 mg/dL Critically high 0.55-1.02 [facility] Comment on above: Performed By: #### C MP, BNP ####[facility] [address] [place] [address]Dr. Airam Tripathi EGFR-AF [place] 38 mL/min/1.73m2 Critically low >=60 [facility] Comment on above: Performed By: #### C MP, BNP ####[facility] [address]oy[address] [place] [address]Dr. Airam Tripathi EGFR-NON AF [place] 32 mL/min/1.73m2 Critically low >=60 [facility] Comment on above: Performed By: #### C MP, BNP ####[facility] Qanajytniz[address] [place] [address]Dr. Airam Tripathi Globulin (S) [Mass/Vol] 2.8 g/dL Normal [facility] Comment on above: Performed By: #### C MP, BNP ####[facility] Ggpdatkuwm[address] [place] [address]Dr. Airam Tripathi Glucose [Mass/Vol] 102 mg/dL Normal 74-106 [facility] Comment on above: Performed By: #### C MP, BNP ####[facility] Kuxivtygfb[address] [place] [address]Dr. Airam Tripathi Potassium [Moles/Vol] 5.0 mmol/L Normal 3.5-5.1 [facility] Comment on above: Performed By: #### C MP, BNP ####[facility] Gdvzfzmrtn[address] [place] [address]Dr. Airam Tripathi Protein [Mass/Vol] 5.3 g/dL Critically low 6.4-8.2 [facility] Comment on above: Performed By: #### C MP, BNP ####[facility] Cwkxqrcczw[address] [place] [address]Dr. Airam Tripathi Sodium [Moles/Vol] 134 mmol/L Critically low 136-145 [facility] Comment on above: Performed By: #### C MP, BNP ####[facility] Nrytgfnqbj119[address] [place], [place] [address]Dr. Airam Tripathi Urea nitrogen [Mass/Vol] 45.0 mg/dL Critically high 7.0-18.0 [facility] Comment on above: Performed By: #### C MP, BNP ####[facility] Jjlsdzhqwy[address] [place], [place] [address]Dr. Airam Tripathi Urea nitrogen/Creatinine [Mass ratio] 27.1 mg/mg Normal [facility] Comment on above: Performed By: #### C MP, BNP ####[facility] Npbbdggnqf107[address] [place], [place] [address]Dr. Airam Tripathi BNPon 10-25-2022 Natriuretic peptide B (Bld) [Mass/Vol] 4569.0 pg/mL Critically high <=900.0 [facility] Comment on above: Performed By: #### C MP, BNP ####[facility] Jbynttgkjf[address] [place], [place] [address]Dr. Airam Tripathi CBC AUTO DIFFon 10-25-2022 BASO # 0.0 103/ul Normal 0.0-0.1 [facility] Comment on above: Performed By: #### C BC ####[facility] Klilicyxvr[address] [place], [place] [address]Dr. Airam Deuce Basophils/100 WBC (Bld) 0.5 % Normal 0.2-2.0 [facility] Comment on above: Performed By: #### C BC ####[facility] Trlwtyhhyb228[address] [place], [place] [address]Dr. Airam Tripathi EO # 0.3 103/ul Normal 0.0-0.7 [facility] Comment on above: Performed By: #### C BC ####[facility] Odgaealxdx825[address] [place], [place] [address]Dr. Airam Deuce Eosinophils/100 WBC (Bld) 5.6 % Normal 0.9-7.0 [facility] Comment on above: Performed By: #### C BC ####[facility] Olkedksmty8[address] [place], [place] [address]Dr. Airam Tripathi Erythrocyte distribution width (RBC) [Ratio] 15.7 % Critically high 11.0-15.0 [facility] Comment on above: Performed By: #### C BC ####[facility] K[address]wlgfywn[address] [place] [address]DrKianna Tripathi Hematocrit (Bld) [Volume fraction] 30.1 % Critically low 36.0-48.0 [facility] Comment on above: Performed By: #### C BC ####[facility] Bnwzfmajxq[address] [place], [place] [address]DrKianna Tripathi Hemoglobin (Bld) [Mass/Vol] 9.2 g/dL Critically low 12.0-16.0 [facility] Comment on above: Performed By: #### C BC ####[facility] Jevictvtpd[address] [place], [place] [address]DrKianna Tripathi IG # 0.03 10e3/ul Normal 0.00-0.03 [facility] Comment on above: Performed By: #### C BC ####[facility] Goweqrofpj[address] [place], [place] [address]DrKianna Tripathi IG % 0.5 % Normal 0.0-0.5 [facility] Comment on above: Performed By: #### C BC ####[facility] Ugxzrzrmmn906[address] [place], [place] [address]DrKianna Tripathi LYMPH # 1.7 103/ul Normal 1.2-3.8 [facility] Comment on above: Performed By: #### C BC ####[facility] Pdwtrbmngq314[address] [place], [place] [address]DrKianna Tripathi Lymphocytes/100 WBC (Bld) 28.9 % Normal 20.5-60.0 [facility] Comment on above: Performed By: #### C BC ####[facility] Zodbvhkomi[address] [place], [place] [address]DrKianna Tripathi MANUAL DIFF REQ NO Normal [facility] Comment on above: Performed By: #### C BC ####[facility] Shhhnehtqz8[address] [place], [place] [address]DrKianna Tripathi MCH (RBC) [Entitic mass] 28.4 pg Normal 26.7-34.0 [facility] Comment on above: Performed By: #### C BC ####[facility] Y[address]ashzauqr[address] [place] [address]DrKianna Tripathi MCHC (RBC) [Mass/Vol] 30.6 g/dL Normal 29.9-35.2 [facility] Comment on above: Performed By: #### C BC ####[facility] F[address]qhqlrdb[address] [place] [address]DrKianna Tripathi MCV (RBC) [Entitic vol] 92.9 fL Normal 81.0-99.0 [facility] Comment on above: Performed By: #### C BC ####[facility] Afgoppflwh[address] [place], [place] [address]DrKianna Tripathi MONO # 0.5 103/ul Normal 0.3-0.8 [facility] Comment on above: Performed By: #### C BC ####[facility] Zcvawllalj[address] [place], [place] [address]DrKianna Tripathi Monocytes/100 WBC (Bld) 8.5 % Normal 1.7-12.0 [facility] Comment on above: Performed By: #### C BC ####[facility] Dloovwgvdl86[address] [place], [place] [address]DrKianna Tripathi NEUT # 3.2 103/ul Normal 1.4-6.5 [facility] Comment on above: Performed By: #### C BC ####[facility] Lkhcbfzmiv501[address] [place], [place] [address]DrKianna Tripathi Neutrophils/100 WBC (Bld) 56.0 % Normal 43.0-75.0 [facility] Comment on above: Performed By: #### C BC ####[facility] Smsdkhirhv867[address] [place], [place] [address]DrKianna Tripathi Platelet mean volume (Bld) [Entitic vol] 9.4 fL Critically low 9.5-13.5 [facility] Comment on above: Performed By: #### C BC ####[facility] Wfzdfvdscw[address] [place], [place] [address]DrKianna Tripathi PLT 272 103/ul Normal 150-450 [facility] Comment on above: Performed By: #### C BC ####[facility] L[address]vxqiczq[address] [place] [address]Dr. Airam Tripathi RBC 3.24 106/ul Critically low 4.20-5.40 [facility] Comment on above: Performed By: #### C BC ####[facility] Wlkercnvlf[address] [place] [address]Dr. Airam Tripathi WBC 5.8 103/ul Normal 4.0-11.0 [facility] Comment on above: Performed By: #### C BC ####[facility] Dayvmuqvlo[address] [place] [address]Dr. Airam Tripathi OSMOLALITYon 10-25-2022 Osmolality [Osmolality] 282 mosm/kg Normal 275-295 [facility] Comment on above: Performed By: #### O SMO ####[facility] Lqidvyfmrf[address] [place], [place] [address]DrKianna Tripathi PROF 14(COMP METB)on 023 Albumin [Mass/Vol] 2.7 g/dL Critically low 3.4-5.0 [facility] Comment on above: Performed By: #### C MP, BNP ####[facility] Ddcbgkrnel[address] [place] [address]Dr. Airam Tripathi Albumin/Globulin [Mass ratio] 0.9 {ratio} Normal [facility] Comment on above: Performed By: #### C MP, BNP ####[facility] Imotyauied[address] [place], [place] [address]Dr. Airam Tripathi ALP [Catalytic activity/Vol] 122 U/L Critically high 46-116 [facility] Comment on above: Performed By: #### C MP, BNP ####[facility] Xcausjlnie889[address] [place], [place] [address]Dr. Airam Tripathi ALT [Catalytic activity/Vol] 23 U/L Normal 14-59 [facility] Comment on above: Performed By: #### C MP, BNP ####[facility] Vfzxmavsgk007[address] [place], [place] [address]Dr. Airam Tripathi Anion gap [Moles/Vol] 10.5 mmol/L Normal [facility] Comment on above: Performed By: #### C MP, BNP ####[facility] Bmxnndpdvf[address] [place] [address]Dr. Airam Tripathi AST [Catalytic activity/Vol] 22 U/L Normal 15-37 [facility] Comment on above: Performed By: #### C MP, BNP ####[facility] Unkrvwzths225[address] [place], [place] [address]Dr. Airam Tripathi Bilirubin [Mass/Vol] 0.2 mg/dL Normal 0.2-1.0 [facility] Comment on above: Performed By: #### C MP, BNP ####[facility] Cxyccnnbtj520[address] [place], [place] [address]Dr. Airam Tripathi Calcium [Mass/Vol] 8.3 mg/dL Critically low 8.5-10.1 [facility] Comment on above: Performed By: #### C MP, BNP ####[facility] Asvbdcqbdp685[address] [place], [place] [address]Dr. Airam Tripathi Chloride [Moles/Vol] 102 mmol/L Normal 98-107 [facility] Comment on above: Performed By: #### C MP, BNP ####[facility] Ebniumyyad725[address] [place], [place] [address]Dr. Airam Tripathi CO2 [Moles/Vol] 29.7 mmol/L Normal 21.0-32.0 [facility] Comment on above: Performed By: #### C MP, BNP ####[facility] Lcrnsbdven957[address] [place], [place] [address]Dr. Airam Tripathi Creatinine [Mass/Vol] 1.31 mg/dL Critically high 0.55-1.02 [facility] Comment on above: Performed By: #### C MP, BNP ####[facility] Agebdofluk[address] [place], [place] [address]Dr. Airam Tripathi EGFR-AF [place] 50 mL/min/1.73m2 Critically low >=60 [facility] Comment on above: Performed By: #### C MP, BNP ####[facility] Xomglsgoox[address] [place] [id number]. Airam Tripathi EGFR-NON AF [place] 41 mL/min/1.73m2 Critically low >=60 [facility] Comment on above: Performed By: #### C MP, BNP ####[facility] Jlhsayaaoz[address] [place] [id number]. Airam Tripathi Globulin (S) [Mass/Vol] 2.9 g/dL Normal [facility] Comment on above: Performed By: #### C MP, BNP ####[facility] Knioxckjjp376[address] [place], [place] [address]Dr. Airam Tripathi Glucose [Mass/Vol] 94 mg/dL Normal 74-106 [facility] Comment on above: Performed By: #### C MP, BNP ####[facility] Sgtekwpolb075[address] [place], [place] [address]Dr. Airam Tripathi Potassium [Moles/Vol] 4.2 mmol/L Normal 3.5-5.1 [facility] Comment on above: Performed By: #### C MP, BNP ####[facility] Kaomkmsrvn6415[address] [place], [place] [address]Dr. Airam Tripathi Protein [Mass/Vol] 5.6 g/dL Critically low 6.4-8.2 [facility] Comment on above: Performed By: #### C MP, BNP ####[facility] Bgyywjrnus25230[address] [place], [place] [address]Dr. Airam Tripathi Sodium [Moles/Vol] 138 mmol/L Normal 136-145 [facility] Comment on above: Performed By: #### C MP, BNP ####[facility] Ihgjlzqxuz[address] [place] [address]Dr. Airam Tripathi Urea nitrogen [Mass/Vol] 33.0 mg/dL Critically high 7.0-18.0 [facility] Comment on above: Performed By: #### C MP, BNP ####[facility] Qdfuiopmwx7625[address] [place], [place] [address]Dr. Airam Tripathi Urea nitrogen/Creatinine [Mass ratio] 25.2 mg/mg Normal [facility] Comment on above: Performed By: #### C MP, BNP ####[facility] Qmaxxkzset34[address] [place] [address]Dr. Airam Tripathi BNPon 10-24-2022 Natriuretic peptide B (Bld) [Mass/Vol] 3805.0 pg/mL Critically high <=900.0 [facility] Comment on above: Performed By: #### H STROPN, BNP, CMP ####[facility] Fdwcqriwve[address] [place], [place] [address]Dr. Airam Tripathi CBC AUTO DIFFon 10-24-2022 BASO # 0.0 103/ul Normal 0.0-0.1 [facility] Comment on above: Performed By: #### C BC ####[facility] Nnqfugnppy467[address] [place], [place] [address]Dr. Airam Tripathi Basophils/100 WBC (Bld) 0.3 % Normal 0.2-2.0 [facility] Comment on above: Performed By: #### C BC ####[facility] Xwsgsxerty298[address] [place], [place] [address]Dr. Airam Tripathi EO # 0.3 103/ul Normal 0.0-0.7 [facility] Comment on above: Performed By: #### C BC ####[facility] Xwgzmqvjkj609[address] [place], [place] [address]Dr. Airam Tripathi Eosinophils/100 WBC (Bld) 4.2 % Normal 0.9-7.0 [facility] Comment on above: Performed By: #### C BC ####[facility] Iopuidejiq967[address] [place], [place] [address]Dr. Airam Tripathi Erythrocyte distribution width (RBC) [Ratio] 15.6 % Critically high 11.0-15.0 [facility] Comment on above: Performed By: #### C BC ####[facility] Zadezthacc[address] [place], [place] [address]DrKianna Tripathi Hematocrit (Bld) [Volume fraction] 30.0 % Critically low 36.0-48.0 [facility] Comment on above: Performed By: #### C BC ####[facility] Gkdjsefeuq047[address] [place], [place] [address]Dr. Airam Tripathi Hemoglobin (Bld) [Mass/Vol] 9.3 g/dL Critically low 12.0-16.0 [facility] Comment on above: Performed By: #### C BC ####[facility] Vtnoekambr[address] [place] [address]Dr. Airam Tripathi IG # 0.03 10e3/ul Normal 0.00-0.03 [facility] Comment on above: Performed By: #### C BC ####[facility] Bhtcnxgbet165[address] [place], [place] [address]Dr. Airam Tripathi IG % 0.5 % Normal 0.0-0.5 [facility] Comment on above: Performed By: #### C BC ####[facility] Lpcrwkklim199[address] [place], [place] [address]DrKianna Tripathi LYMPH # 1.4 103/ul Normal 1.2-3.8 [facility] Comment on above: Performed By: #### C BC ####[facility] Ugffwjvdwi696[address] [place], [place] [address]Dr. Airam Tripathi Lymphocytes/100 WBC (Bld) 22.5 % Normal 20.5-60.0 [facility] Comment on above: Performed By: #### C BC ####[facility] Ujysrjixog[address] [place], [place] [address]DrKianna Tripathi MANUAL DIFF REQ NO Normal [facility] Comment on above: Performed By: #### C BC ####[facility] Xehuamxqqi360[address] [place], [place] [address]DrKianna Tripathi MCH (RBC) [Entitic mass] 28.7 pg Normal 26.7-34.0 [facility] Comment on above: Performed By: #### C BC ####[facility] Jmbqtdstpc26350[address] [place], [place] [address]Dr. Airam Tripathi MCHC (RBC) [Mass/Vol] 31.0 g/dL Normal 29.9-35.2 [facility] Comment on above: Performed By: #### C BC ####[facility] Xuerlbcnod9[address] [place], [place] [address]DrKianna Tripathi MCV (RBC) [Entitic vol] 92.6 fL Normal 81.0-99.0 [facility] Comment on above: Performed By: #### C BC ####[facility] Phsggacenb[address] [place], [place] [address]DrKianna Airam Tripathi MONO # 0.4 103/ul Normal 0.3-0.8 [facility] Comment on above: Performed By: #### C BC ####[facility] Fpkmwhhivj75[address] [place], [place] [address]DrKianna Airam Tripathi Monocytes/100 WBC (Bld) 7.3 % Normal 1.7-12.0 [facility] Comment on above: Performed By: #### C BC ####[facility] Jxtgwabnbl[address] [place], [place] [address]DrKianna Airam Tripathi NEUT # 3.9 103/ul Normal 1.4-6.5 [facility] Comment on above: Performed By: #### C BC ####[facility] Jwvswucqfi[address] [place], [place] [address]DrKianna Airam Tripathi Neutrophils/100 WBC (Bld) 65.2 % Normal 43.0-75.0 [facility] Comment on above: Performed By: #### C BC ####[facility] Ehfhvdxovd314[address] [place], [place] [address]DrKianna Airam Tripathi Platelet mean volume (Bld) [Entitic vol] 9.0 fL Critically low 9.5-13.5 [facility] Comment on above: Performed By: #### C BC ####[facility] Iliwzgivzk37[address] [place], [place] [address]DrKianna Airam Tripathi PLT 247 103/ul Normal 150-450 [facility] Comment on above: Performed By: #### C BC ####[facility] Fztwlsalcq[address] [place], [place] [id number] Airam Tripathi RBC 3.24 106/ul Critically low 4.20-5.40 [facility] Comment on above: Performed By: #### C BC ####[facility] Gpgtfozlci254[address] [place], [place] [address]DrKianna Tripathi WBC 6.0 103/ul Normal 4.0-11.0 [facility] Comment on above: Performed By: #### C BC ####[facility] [address] [place] [address]Dr. Airam Tripathi CULTURE URINEon 10-24-2022 CULTURE URINE Culture Observations : LIGHT GROWTH OF MIXED GENITAL GREGORY. NO POTENTIAL PATHOGENS SEEN. Normal [facility] Comment on above: Performed By: #### U RCX ####[facility] Obxtxrccvl[address] [place] [address]Dr. Airam Tripathi POINT OF CARE GLUCOSEon Glucose [Mass/Vol] 118 mg/dL Critically high 74-106 [facility] Comment on above: Performed By: #### P OCGLUC ####[facility] Mrzbyeozmt69[address] [place], [place] [address]Dr. Airam Tripathi PROF 14(COMP METB)on 023 Albumin [Mass/Vol] 3.1 g/dL Critically low 3.4-5.0 [facility] Comment on above: Performed By: #### H STROPN, BNP, CMP ####[facility] Ybnnorqugy[address] [place] [address]Dr. Airam Tripathi Albumin/Globulin [Mass ratio] 1.0 {ratio} Normal [facility] Comment on above: Performed By: #### H STROPN, BNP, CMP ####[facility] Xpswdxrbnq79[address] [place] [address]Dr. Airam Tripathi ALP [Catalytic activity/Vol] 131 U/L Critically high 46-116 [facility] Comment on above: Performed By: #### H STROPN, BNP, CMP ####[facility] Caqkfbblvd4[address] [place] [address]Dr. Airam Tripathi ALT [Catalytic activity/Vol] 26 U/L Normal 14-59 [facility] Comment on above: Performed By: #### H STROPN, BNP, CMP ####[facility] Kbeaadfwny[address] [place] [address]Dr. Airam Tripathi Anion gap [Moles/Vol] 11.2 mmol/L Normal [facility] Comment on above: Performed By: #### H STROPN, BNP, CMP ####[facility] Elrjlmyatg[address] [place] [address]Dr. Airam Tripathi AST [Catalytic activity/Vol] 31 U/L Normal 15-37 [facility] Comment on above: Performed By: #### H STROPN, BNP, CMP ####[facility] Udldiyttum[address] [place] [address]Dr. Airam Tripathi Bilirubin [Mass/Vol] 0.2 mg/dL Normal 0.2-1.0 [facility] Comment on above: Performed By: #### H STROPN, BNP, CMP ####[facility] Xzmxsyzjrj67[address] [place] [address]Dr. Airam Tripathi Calcium [Mass/Vol] 8.6 mg/dL Normal 8.5-10.1 [facility] Comment on above: Performed By: #### H STROPN, BNP, CMP ####[facility] Yflzhgjbfo455[address] [place], [place] [address]Dr. Airam Tripathi Chloride [Moles/Vol] 102 mmol/L Normal 98-107 [facility] Comment on above: Performed By: #### H STROPN, BNP, CMP ####[facility] Nxyvterrdh[address] [place], [place] [address]Dr. Airam Tripathi CO2 [Moles/Vol] 27.4 mmol/L Normal 21.0-32.0 [facility] Comment on above: Performed By: #### H STROPN, BNP, CMP ####[facility] Liskjrsvua[address] [place], [place] [address]Dr. Airam Tripathi Creatinine [Mass/Vol] 1.23 mg/dL Critically high 0.55-1.02 [facility] Comment on above: Performed By: #### H STROPN, BNP, CMP ####[facility] Xtynoseila[address] [place] [address]Dr. Airam Tripathi EGFR-AF [place] 54 mL/min/1.73m2 Critically low >=60 [facility] Comment on above: Performed By: #### H STROPN, BNP, CMP ####[facility] Yzyievttjw[address] [place] [address]Dr. Airam Tripathi EGFR-NON AF [place] 45 mL/min/1.73m2 Critically low >=60 [facility] Comment on above: Performed By: #### H STROPN, BNP, CMP ####[facility] Woqflzocdp8[address] [place] [address]Dr. Airam Tripathi Globulin (S) [Mass/Vol] 3.1 g/dL Normal [facility] Comment on above: Performed By: #### H STROPN, BNP, CMP ####[facility] Ixktmgpwqd7241 [place] [address]Dr. Airam Tripathi Glucose [Mass/Vol] 90 mg/dL Normal 74-106 [facility] Comment on above: Performed By: #### H STROPN, BNP, CMP ####[facility] Jkydihtnja40[address] [place] [address]Dr. Airam Tripathi Potassium [Moles/Vol] 5.6 mmol/L Critically high 3.5-5.1 [facility] Comment on above: Performed By: #### H STROPN, BNP, CMP ####[facility] Feoqeshhvs27[address] [place] [address]Dr. Airam Tripathi Protein [Mass/Vol] 6.2 g/dL Critically low 6.4-8.2 [facility] Comment on above: Performed By: #### H STROPN, BNP, CMP ####[facility] Aaylhxhsfq9[address] [place] [address]Dr. Airam Tripathi Sodium [Moles/Vol] 135 mmol/L Critically low 136-145 [facility] Comment on above: Performed By: #### H STROPN, BNP, CMP ####[facility] Icixkffxet[address] [place] [address]Dr. Airam Tripathi Urea nitrogen [Mass/Vol] 38.0 mg/dL Critically high 7.0-18.0 [facility] Comment on above: Performed By: #### H STROPN, BNP, CMP ####[facility] Vllbwnhecn[address] [place] [address]Dr. Airam Tripathi Urea nitrogen/Creatinine [Mass ratio] 30.9 mg/mg Normal [facility] Comment on above: Performed By: #### H STROPN, BNP, CMP ####[facility] Fkhzwcopjm75[address] [place] [address]Dr. Airam Tripathi TROPONIN, HIGH SENSITIVITYon 10-24-2022 HSTROP 8.0 pg/mL Normal 4.0-51.3 [facility] Comment on above: Result Comment: CUT- OFF POINTS HAVE BEEN ESTABLISHED BASED ON THE FOURTH UNIVERSAL DEFINITIONS OF MYOCARDIALINFARCTION. THE UPPER REFERENCE LIMIT (URL) OF TROPONIN, DEFINED THE 99TH PERCENTILE OFcTnI DISTRIBUTION IN A REFERENCE POPULATION, HAS BEEN CONFIRMED THE DECISION THRESHOLDFOR [place] DIAGNOSIS. Performed By: #### H STROPN, BNP, CMP ####[facility] Vwplvbanaw[address] [place] [address]Dr. Airam Tripathi UA RANDOM W/MICROSCOPICon BACTERIA NONE SEEN Normal NONE SEEN [facility] Comment on above: Performed By: #### U AMIC ####[facility] Ckfamrdttk[address] [place], [place] [address]Dr. Airam Tripathi Bilirubin Ql (U) Negative Normal NEGATIVE [facility] Comment on above: Performed By: #### U AMIC ####[facility] Sdjymffzfi[address] [place], [place] [address]Dr. Airam Tripathi CAST NONE SEEN Normal NONE SEEN [facility] Comment on above: Performed By: #### U AMIC ####[facility] Emojdgrept[address] [place] [address]Dr. Airam Tripathi Clarity (U) CLEAR Normal CLEAR [facility] Comment on above: Performed By: #### U AMIC ####[facility] Acqkheudqj34[address] [place] [address]Dr. Airam Tripathi Color (U) LT. YELLOW Normal YELLOW [facility] Comment on above: Performed By: #### U AMIC ####[facility] Wbtpxtravb47[address] [place] [address]Dr. Airam Tripathi Crystals LM Nom (Urine sed) NONE SEEN Normal NONE SEEN [facility] Comment on above: Performed By: #### U AMIC ####[facility] Vgzdwhzijp99[address] [place] [address]Dr. Airam Tripathi Epithelial cells LM Ql (Urine sed) RARE Normal NONE SEEN /RARE [facility] Comment on above: Performed By: #### U AMIC ####[facility] Vlvfoppjbi4[address] [place] [address]Dr. Airam Tripathi Glucose Ql (U) Negative Normal NEGATIVE [facility] Comment on above: Performed By: #### U AMIC ####[facility] Tlcywbupao[address] [place], [place] [address]Dr. Airam Tripathi Hemoglobin Ql (U) Negative Normal NEGATIVE [facility] Comment on above: Performed By: #### U AMIC ####[facility] Nfuudaimhe[address] [place], [place] [address]Dr. Airam Tripathi Ketones Ql (U) Negative Normal NEGATIVE [facility] Comment on above: Performed By: #### U AMIC ####[facility] Dohmamrkoo[address] [place], [place] [address]Dr. Airam Tripathi LEUKOCYTES Negative Normal NEGATIVE [facility] Comment on above: Performed By: #### U AMIC ####[facility] Smlmvfafou[address] [place], [place] [address]Dr. Airam Tripathi MUCOUS NONE SEEN Normal NONE SEEN [facility] Comment on above: Performed By: #### U AMIC ####[facility] Xmntcgnjtg7[address] [place], [place] [address]Dr. Airam Tripathi Nitrite Ql (U) Negative Normal NEGATIVE [facility] Comment on above: Performed By: #### U AMIC ####[facility] Czzzqfdcbk19[address] [place], [place] [address]Dr. Airam Tripathi pH (U) 7.0 [pH] Normal 5-9 [facility] Comment on above: Performed By: #### U AMIC ####[facility] Hhvpgwtkdn[address] [place], [place] [address]Dr. Airam Tripathi RBC 0-2 Normal 0-2 [facility] Comment on above: Performed By: #### U AMIC ####[facility] [address] [place], [place] [address]Dr. Airam Tripathi SPEC GRAVITY 1.015 Normal 1.005-<=1. 025 [facility] Comment on above: Performed By: #### U AMIC ####[facility] Ozvqbwpexe[address] [place] [address]Dr. Airam Tripathi UA PROTEIN Negative Normal NEGATIVE/ TRACE [facility] Comment on above: Performed By: #### U AMIC ####[facility] Nhkwzrvmhg7219 [place] [address]Dr. Airam Tripathi Urobilinogen Qn (U) 0.2 {Ligia'U}/dL Normal 0.2 - 1. 0 [facility] Comment on above: Performed By: #### U AMIC ####[facility] Zhgxvnhpfa[address] [place], [place] [address]Dr. Airam Tripathi WBC NONE SEEN Normal NONE SEEN [facility] Comment on above: Performed By: #### U AMIC ####[facility] Ajocjlrpld0393 [place] [address]Dr. Airam Tripathi XR CHEST 1 Von 10-24-2022 XR CHEST 1 V Normal [facility] CBC AUTO DIFFon 10-19-2022 BASO # 0.0 103/ul Normal 0.0-0.1 [facility] Comment on above: Performed By: #### C BC ####[facility] Iuvqewpvcu[address] [place], [place] [address]Dr. Airam Deuce Basophils/100 WBC (Bld) 0.5 % Normal 0.2-2.0 [facility] Comment on above: Performed By: #### C BC ####[facility] Nj[address]opwthkz[address] [place], [place] [address]Dr. Airam Tripathi EO # 0.3 103/ul Normal 0.0-0.7 [facility] Comment on above: Performed By: #### C BC ####[facility] Vadxrjyxjm[address] [place], [place] [address]Dr. Airam Deuce Eosinophils/100 WBC (Bld) 3.3 % Normal 0.9-7.0 [facility] Comment on above: Performed By: #### C BC ####[facility] Nhuovzpskc9234 [place] [address]Dr. Airam Tripathi Erythrocyte distribution width (RBC) [Ratio] 15.0 % Normal 11.0-15.0 [facility] Comment on above: Performed By: #### C BC ####[facility] Odcvhlufcp9918 [place] [address]Dr. Airam Tripathi Hematocrit (Bld) [Volume fraction] 32.9 % Critically low 36.0-48.0 [facility] Comment on above: Performed By: #### C BC ####[facility] Cboqjyaijm[address] [place], [place] [address]Dr. Selenaneil Tripathi Hemoglobin (Bld) [Mass/Vol] 10.1 g/dL Critically low 12.0-16.0 [facility] Comment on above: Performed By: #### C BC ####[facility] Npaqcxotgs39[address] [place], [place] [address]Dr. Airam Tripathi IG # 0.04 10e3/ul Critically high 0.00-0.03 [facility] Comment on above: Performed By: #### C BC ####[facility] Ctunihoykv[address] [place], [place] [address]Dr. Selenaneil Tripathi IG % 0.5 % Normal 0.0-0.5 [facility] Comment on above: Performed By: #### C BC ####[facility] Yecofkbwgj74[address] [place], [place] [address]Dr. Airam Tripathi LYMPH # 1.5 103/ul Normal 1.2-3.8 [facility] Comment on above: Performed By: #### C BC ####[facility] Cdrmsyipvy593[address] [place], [place] [address]Dr. Airam Tripathi Lymphocytes/100 WBC (Bld) 18.1 % Critically low 20.5-60.0 [facility] Comment on above: Performed By: #### C BC ####[facility] Tqvvggjgmo950[address] [place], [place] [address]Dr. Airam Tripathi MANUAL DIFF REQ NO Normal [facility] Comment on above: Performed By: #### C BC ####[facility] Xrpptcmznn1447 [place] [address]Dr. Airam Tripathi MCH (RBC) [Entitic mass] 28.3 pg Normal 26.7-34.0 [facility] Comment on above: Performed By: #### C BC ####[facility] Ecygfscnxq1048 [place] [address]Dr. Airam Tripathi MCHC (RBC) [Mass/Vol] 30.7 g/dL Normal 29.9-35.2 [facility] Comment on above: Performed By: #### C BC ####[facility] Lzygpzgvga140[address] [place], [place] [address]Dr. Airam Tripathi MCV (RBC) [Entitic vol] 92.2 fL Normal 81.0-99.0 [facility] Comment on above: Performed By: #### C BC ####[facility] Wrxhxdcdde7[address] [place], [place] [address]Dr. Airam Tripathi MONO # 0.7 103/ul Normal 0.3-0.8 [facility] Comment on above: Performed By: #### C BC ####[facility] Eubjwitqoa035[address] [place], [place] [address]Dr. Airam Tripathi Monocytes/100 WBC (Bld) 7.7 % Normal 1.7-12.0 [facility] Comment on above: Performed By: #### C BC ####[facility] Thipijweit[address] [place], [place] [address]Dr. Airam Tripathi NEUT # 5.9 103/ul Normal 1.4-6.5 [facility] Comment on above: Performed By: #### C BC ####[facility] Sracrucvpd178[address] [place], [place] [address]Dr. Airam Tripathi Neutrophils/100 WBC (Bld) 69.9 % Normal 43.0-75.0 [facility] Comment on above: Performed By: #### C BC ####[facility] Cmuxqvnkom[address] [place], [place] [address]Dr. Airam Tripathi Platelet mean volume (Bld) [Entitic vol] 9.3 fL Critically low 9.5-13.5 [facility] Comment on above: Performed By: #### C BC ####[facility] Uksfukoqru1676 [place] [id number]. Airam Tripathi PLT 293 103/ul Normal 150-450 [facility] Comment on above: Performed By: #### C BC ####[facility] Okzurbtcyp8902 [place] [id number]. Airam Tripathi RBC 3.57 106/ul Critically low 4.20-5.40 [facility] Comment on above: Performed By: #### C BC ####[facility] Fmduvivypk8750 [place] [id number]. Airam Tripathi WBC 8.4 103/ul Normal 4.0-11.0 [facility] Comment on above: Performed By: #### C BC ####[facility] Hgmakljhsf5597 [place] [address]Dr. Airam Tripathi PROF 14(COMP METB)on 023 Albumin [Mass/Vol] 3.1 g/dL Critically low 3.4-5.0 [facility] Comment on above: Performed By: #### C MP ####[facility] Fvxiqskbzo3484 [place] [address]Dr. Selenaneil Deuce Albumin/Globulin [Mass ratio] 0.9 {ratio} Normal [facility] Comment on above: Performed By: #### C MP ####[facility] Syjydploab4581 [place] [address]Dr. Airam Tripathi ALP [Catalytic activity/Vol] 117 U/L Critically high 46-116 [facility] Comment on above: Performed By: #### C MP ####[facility] Bbrzsglvbf1109 [place] [address]Dr. Airam Tripathi ALT [Catalytic activity/Vol] 24 U/L Normal 14-59 [facility] Comment on above: Performed By: #### C MP ####[facility] Hrkoftpjbw5269 [place] [address]Dr. Airam Tripathi Anion gap [Moles/Vol] 11.1 mmol/L Normal [facility] Comment on above: Performed By: #### C MP ####[facility] Fvzaqojles9290 [place] [phone]. Airam Tripathi AST [Catalytic activity/Vol] 22 U/L Normal 15-37 [facility] Comment on above: Performed By: #### C MP ####[facility] Lupkuhizux7191 [place] [phone]. Airam Tripathi Bilirubin [Mass/Vol] 0.2 mg/dL Normal 0.2-1.0 [facility] Comment on above: Performed By: #### C MP ####[facility] Qlncaocvlu8573 [place] [phone]. Airam Tripathi Calcium [Mass/Vol] 8.4 mg/dL Critically low 8.5-10.1 [facility] Comment on above: Performed By: #### C MP ####[facility] Ngmqswknjk7345 [place] [phone]. Airam Tripathi Chloride [Moles/Vol] 103 mmol/L Normal 98-107 [facility] Comment on above: Performed By: #### C MP ####[facility] Trpwytbajn4247 [place] [phone]. Airam Tripathi CO2 [Moles/Vol] 25.0 mmol/L Normal 21.0-32.0 [facility] Comment on above: Performed By: #### C MP ####[facility] Dvxlqiemvd9511 [place] [phone]. Airam Tripathi Creatinine [Mass/Vol] 1.27 mg/dL Critically high 0.55-1.02 [facility] Comment on above: Performed By: #### C MP ####[facility] Lfzdvgatuz8953 [place] [phone]. Airam Tripathi EGFR-AF [place] 52 mL/min/1.73m2 Critically low >=60 [facility] Comment on above: Performed By: #### C MP ####[facility] Ybarsuvuig3362 [place] [phone]. Airam Tripathi EGFR-NON AF [place] 43 mL/min/1.73m2 Critically low >=60 [facility] Comment on above: Performed By: #### C MP ####[facility] Adofhcfgsr9567 [place] [phone]. Airam Tripathi Globulin (S) [Mass/Vol] 3.3 g/dL Normal [facility] Comment on above: Performed By: #### C MP ####[facility] Mdwxrjxvnd3879 [place] [address]Dr. Airam Tripathi Glucose [Mass/Vol] 90 mg/dL Normal 74-106 [facility] Comment on above: Performed By: #### C MP ####[facility] Kiwtbsukrs1396 [place] [address]Dr. Airam Tripathi Potassium [Moles/Vol] 5.1 mmol/L Normal 3.5-5.1 [facility] Comment on above: Performed By: #### C MP ####[facility] Wibdidiptl[address] [place], [place] [address]Dr. Airam Tripathi Protein [Mass/Vol] 6.4 g/dL Normal 6.4-8.2 [facility] Comment on above: Performed By: #### C MP ####[facility] Kzcolallrc[address] [place], [place] [address]Dr. Airam Tripathi Sodium [Moles/Vol] 134 mmol/L Critically low 136-145 [facility] Comment on above: Performed By: #### C MP ####[facility] Xqggxewqfw714[address] [place], [place] [address]Dr. Airam Tripathi Urea nitrogen [Mass/Vol] 33.0 mg/dL Critically high 7.0-18.0 [facility] Comment on above: Performed By: #### C MP ####[facility] Jfohmotrim069[address] [place], [place] [address]Dr. Airam Tripathi Urea nitrogen/Creatinine [Mass ratio] 26.0 mg/mg Normal [facility] Comment on above: Performed By: #### C MP ####[facility] Sqihsfqbyk6[address] [place], [place] [address]Dr. Airam Tripathi OSMOLALITYon 10-15-2022 Osmolality [Osmolality] 272 mosm/kg Critically low 275-295 [facility] Comment on above: Performed By: #### O SMO ####[facility] Nuwmymcjcm2324 [place] [address]Dr. Airam rTipathi BNPon 10-12-2022 Natriuretic peptide B (Bld) [Mass/Vol] 1337.0 pg/mL Critically high <=900.0 [facility] Comment on above: Performed By: #### B ROENTGENOLOGIST ####[facility] Lvnrdhorqy19[address] [place], [place] [address]Dr. Airam Tripathi CBC AUTO DIFFon 10-12-2022 BASO # 0.0 103/ul Normal 0.0-0.1 [facility] Comment on above: Performed By: #### C BC ####[facility] Wcryniubgg060[address] [place], [place] [address]Dr. Selenaneil Tripathi Basophils/100 WBC (Bld) 0.6 % Normal 0.2-2.0 [facility] Comment on above: Performed By: #### C BC ####[facility] Yuxewjyugo536[address] [place], [place] [address]Dr. Selenaneil Deuce EO # 0.2 103/ul Normal 0.0-0.7 [facility] Comment on above: Performed By: #### C BC ####[facility] Pacclllcqo99360[address] [place], [place] [address]Dr. Airam Deuce Eosinophils/100 WBC (Bld) 2.3 % Normal 0.9-7.0 [facility] Comment on above: Performed By: #### C BC ####[facility] Wgpruhxfjc312[address] [place], [place] [address]Dr. Selenaneil Deuce Erythrocyte distribution width (RBC) [Ratio] 15.1 % Critically high 11.0-15.0 [facility] Comment on above: Performed By: #### C BC ####[facility] Maipxyputa616[address] [place], [place] [address]Dr. Airam Deuce Hematocrit (Bld) [Volume fraction] 35.9 % Critically low 36.0-48.0 [facility] Comment on above: Performed By: #### C BC ####[facility] Aztbftaipq514[address] [place], [place] [address]Dr. Airam Deuce Hemoglobin (Bld) [Mass/Vol] 11.4 g/dL Critically low 12.0-16.0 [facility] Comment on above: Performed By: #### C BC ####[facility] Ohnpcdotxq2414 [place] [address]DrKianna Tripathi IG # 0.03 10e3/ul Normal 0.00-0.03 [facility] Comment on above: Performed By: #### C BC ####[facility] Ypgenuoqzx7873 [place] [address]DrKianna Tripathi IG % 0.5 % Normal 0.0-0.5 [facility] Comment on above: Performed By: #### C BC ####[facility] Oqzeajtlze9803 [place] [address]DrKianna Tripathi LYMPH # 1.1 103/ul Critically low 1.2-3.8 [facility] Comment on above: Performed By: #### C BC ####[facility] Voajociwgy3398 [place] [address]DrKianna Tripathi Lymphocytes/100 WBC (Bld) 17.2 % Critically low 20.5-60.0 [facility] Comment on above: Performed By: #### C BC ####[facility] Fqpoytxwwa2124 [place] [address]DrKianna Tripathi MANUAL DIFF REQ NO Normal [facility] Comment on above: Performed By: #### C BC ####[facility] Saxafmprif2771 [place] [address]DrKianna Tripathi MCH (RBC) [Entitic mass] 28.8 pg Normal 26.7-34.0 [facility] Comment on above: Performed By: #### C BC ####[facility] Qkvmzbmvjt5855 [place] [phone] Tripathi MCHC (RBC) [Mass/Vol] 31.8 g/dL Normal 29.9-35.2 [facility] Comment on above: Performed By: #### C BC ####[facility] Fxcgfcopri5839 [place] [phone] Tripathi MCV (RBC) [Entitic vol] 90.7 fL Normal 81.0-99.0 [facility] Comment on above: Performed By: #### C BC ####[facility] Azkeqluafo9099 [place] [address]Dr. Airam Tripathi MONO # 0.5 103/ul Normal 0.3-0.8 [facility] Comment on above: Performed By: #### C BC ####[facility] Iffgszcjkx7497 [place] [address]Dr. Airam Tripathi Monocytes/100 WBC (Bld) 7.7 % Normal 1.7-12.0 [facility] Comment on above: Performed By: #### C BC ####[facility] Gksgdkanmg40[address] [place], [place] [address]Dr. Airam Tripathi NEUT # 4.7 103/ul Normal 1.4-6.5 [facility] Comment on above: Performed By: #### C BC ####[facility] Rzakcpcjla59[address] [place], [place] [address]Dr. Airam Tripathi Neutrophils/100 WBC (Bld) 71.7 % Normal 43.0-75.0 [facility] Comment on above: Performed By: #### C BC ####[facility] Aujbsrnjbj308[address] [place], [place] [address]Dr. Airam Tripathi Platelet mean volume (Bld) [Entitic vol] 8.2 fL Critically low 9.5-13.5 [facility] Comment on above: Performed By: #### C BC ####[facility] Kydwxrrfve2268 [place] [address]Dr. Airam Tripathi PLT 292 103/ul Normal 150-450 [facility] Comment on above: Performed By: #### C BC ####[facility] Ogvmdvowbi1943 [place] [id number]. Airam Tripathi RBC 3.96 106/ul Critically low 4.20-5.40 [facility] Comment on above: Performed By: #### C BC ####[facility] Jnpfecdyhz7466 [place] [address]Dr. Airam Tripathi WBC 6.6 103/ul Normal 4.0-11.0 [facility] Comment on above: Performed By: #### C BC ####[facility] Jmdzqtiiem2209 [place] [address]Dr. Airam Tripathi PROF 14(COMP METB)on 023 Albumin [Mass/Vol] 3.3 g/dL Critically low 3.4-5.0 [facility] Comment on above: Performed By: #### C MP ####[facility] Dhdrwgmxuo0911 [place] [address]Dr. Airam Tripathi Albumin/Globulin [Mass ratio] 0.9 {ratio} Normal [facility] Comment on above: Performed By: #### C MP ####[facility] Jcvxvdvgvc8370 [place] [address]Dr. Airam Tripathi ALP [Catalytic activity/Vol] 130 U/L Critically high 46-116 [facility] Comment on above: Performed By: #### C MP ####[facility] Txiachckbc9[address] [place], [place] [address]Dr. Airam Tripathi ALT [Catalytic activity/Vol] 23 U/L Normal 14-59 [facility] Comment on above: Performed By: #### C MP ####[facility] Krrarxkpui619[address] [place], [place] [address]Dr. Airam Tripathi Anion gap [Moles/Vol] 11.7 mmol/L Normal [facility] Comment on above: Performed By: #### C MP ####[facility] Cxafdomshe[address] [place], [place] [address]Dr. Airam Tripathi AST [Catalytic activity/Vol] 23 U/L Normal 15-37 [facility] Comment on above: Performed By: #### C MP ####[facility] Iccyoawist013[address] [place], [place] [address]Dr. Airam Tripathi Bilirubin [Mass/Vol] 0.3 mg/dL Normal 0.2-1.0 [facility] Comment on above: Performed By: #### C MP ####[facility] Rucsvzbatz[address] [place], [place] [address]Dr. Airam Tripathi Calcium [Mass/Vol] 8.7 mg/dL Normal 8.5-10.1 [facility] Comment on above: Performed By: #### C MP ####[facility] Sqjxescein1756 [place] [address]Dr. Airam Tripathi Chloride [Moles/Vol] 99 mmol/L Normal 98-107 [facility] Comment on above: Performed By: #### C MP ####[facility] Sfnibvlxpq5323 [place] [address]Dr. Airam Tripathi CO2 [Moles/Vol] 28.5 mmol/L Normal 21.0-32.0 [facility] Comment on above: Performed By: #### C MP ####[facility] Yjaialvuch4319 [place] [address]Dr. Airam Tripathi Creatinine [Mass/Vol] 1.06 mg/dL Critically high 0.55-1.02 [facility] Comment on above: Performed By: #### C MP ####[facility] Wrnjnhgmuy337[address] [place], [place] [address]Dr. Airam Tripathi EGFR-AF [place] >60 Normal >=60 [facility] Comment on above: Performed By: #### C MP ####[facility] Gnoylgtzhd3607 [place] [address]Dr. Airam Tripathi EGFR-NON AF [place] 53 mL/min/1.73m2 Critically low >=60 [facility] Comment on above: Performed By: #### C MP ####[facility] Ehkpyysqou7118 [place] [address]Dr. Airam Tripathi Globulin (S) [Mass/Vol] 3.5 g/dL Normal [facility] Comment on above: Performed By: #### C MP ####[facility] Gtpapsfeyb3605 [place] [address]Dr. Airam Tripathi Glucose [Mass/Vol] 79 mg/dL Normal 74-106 [facility] Comment on above: Performed By: #### C MP ####[facility] Jzmihmtlka2553 [place] [address]Dr. Airam Tripathi Potassium [Moles/Vol] 4.2 mmol/L Normal 3.5-5.1 [facility] Comment on above: Performed By: #### C MP ####[facility] Zvuuhskoin25350[address] [place], [place] [address]Dr. Airam Tripathi Protein [Mass/Vol] 6.8 g/dL Normal 6.4-8.2 [facility] Comment on above: Performed By: #### C MP ####[facility] Njlginkkyh056[address] [place], [place] [address]Dr. Airam Tripathi Sodium [Moles/Vol] 135 mmol/L Critically low 136-145 [facility] Comment on above: Performed By: #### C MP ####[facility] Iavkousefr997[address] [place], [place] [address]Dr. Airam Tripathi Urea nitrogen [Mass/Vol] 16.0 mg/dL Normal 7.0-18.0 [facility] Comment on above: Performed By: #### C MP ####[facility] Ruzlgbhxac060[address] [place], [place] [address]Dr. Selenaneil Deuce Urea nitrogen/Creatinine [Mass ratio] 15.1 mg/mg Normal [facility] Comment on above: Performed By: #### C MP ####[facility] Ypduwtiylf435[address] [place], [place] [address]Dr. Airam Deuec XR CHEST 1 Von 10-12-2022 XR CHEST 1 V Normal [facility] PRBC LEUKOREDUCEDon 10-10-19 23 PRBC LEUKOREDUCED Normal [facility] Comment on above: Performed By: #### P RBC ####[facility] Rjbomvfjuk7[address] [place], [place] [address]Dr. Airam Tripathi CULTURE URINEon 10-08-2022 CULTURE URINE Normal [facility] Comment on above: Performed By: #### U RCX ####[facility] Upzggamtnq053[address] [place], [place] [address]Dr. Airam Tripathi OSMOLALITYon 10-08-2022 Osmolality [Osmolality] 282 mosm/kg Normal 275-295 [facility] Comment on above: Performed By: #### O SMO ####[facility] Qsvfyxpckj845[address] [place], [place] [address]Dr. Airam Deuce CBC AUTO DIFFon 10-07-2022 BASO # 0.0 103/ul Normal 0.0-0.1 [facility] Comment on above: Performed By: #### C BC ####[facility] Rrhvrlqpas479[address] [place], [place] [address]DrKianna Tripathi Basophils/100 WBC (Bld) 0.3 % Normal 0.2-2.0 [facility] Comment on above: Performed By: #### C BC ####[facility] Nfxqifgbal374[address] [place], [place] [address]DrKianna Tripathi EO # 0.2 103/ul Normal 0.0-0.7 [facility] Comment on above: Performed By: #### C BC ####[facility] Fvkhhafjgl9216[address] [place], [place] [address]Dr. Airam Tripathi Eosinophils/100 WBC (Bld) 3.4 % Normal 0.9-7.0 [facility] Comment on above: Performed By: #### C BC ####[facility] Mmldggjpbv05350[address] [place], [place] [address]Dr. Airam Tripathi Erythrocyte distribution width (RBC) [Ratio] 15.2 % Critically high 11.0-15.0 [facility] Comment on above: Performed By: #### C BC ####[facility] Thlkwvexui973[address] [place], [place] [address]Dr. Airam Tripathi Hematocrit (Bld) [Volume fraction] 31.3 % Critically low 36.0-48.0 [facility] Comment on above: Performed By: #### C BC ####[facility] Rvmangbjhc[address] [place], [place] [address]Dr. Airam Tripathi Hemoglobin (Bld) [Mass/Vol] 9.9 g/dL Critically low 12.0-16.0 [facility] Comment on above: Performed By: #### C BC ####[facility] Ywpsfxqtzo3827[address] [place], [place] [address]DrKianna Tripathi IG # 0.03 10e3/ul Normal 0.00-0.03 [facility] Comment on above: Performed By: #### C BC ####[facility] Sagufrfdxk201[address] [place], [place] [address]DrKianna Tripathi IG % 0.4 % Normal 0.0-0.5 [facility] Comment on above: Performed By: #### C BC ####[facility] Jlyslkuhtj0292 [place] [address]DrKianna Triptahi LYMPH # 1.3 103/ul Normal 1.2-3.8 [facility] Comment on above: Performed By: #### C BC ####[facility] Xnjwtukmvj5808 [place] [address]DrKianna Tripathi Lymphocytes/100 WBC (Bld) 19.0 % Critically low 20.5-60.0 [facility] Comment on above: Performed By: #### C BC ####[facility] Jswwppuwxl358[address] [place], [place] [address]DrKianna Tripathi MANUAL DIFF REQ NO Normal [facility] Comment on above: Performed By: #### C BC ####[facility] Ynqkjpeiyl032[address] [place], [place] [address]DrKianna Tripathi MCH (RBC) [Entitic mass] 28.1 pg Normal 26.7-34.0 [facility] Comment on above: Performed By: #### C BC ####[facility] Hlgtywhjwa310[address] [place], [place] [address]DrKianna Airam Deuce MCHC (RBC) [Mass/Vol] 31.6 g/dL Normal 29.9-35.2 [facility] Comment on above: Performed By: #### C BC ####[facility] Dmqidwgpym332[address] [place], [place] [address]DrKianna Tripathi MCV (RBC) [Entitic vol] 88.9 fL Normal 81.0-99.0 [facility] Comment on above: Performed By: #### C BC ####[facility] Oulbhuhwbq[address] [place], [place] [address]DrKianna Tripathi MONO # 0.6 103/ul Normal 0.3-0.8 [facility] Comment on above: Performed By: #### C BC ####[facility] Ymtcrmmxok[address] [place], [place] [address]DrKianna Tripathi Monocytes/100 WBC (Bld) 9.0 % Normal 1.7-12.0 [facility] Comment on above: Performed By: #### C BC ####[facility] Cycfjuhplw4259 [place] [address]Dr. Airam Tripathi NEUT # 4.5 103/ul Normal 1.4-6.5 [facility] Comment on above: Performed By: #### C BC ####[facility] Zjpngrtolx3141 [place] [address]DrKianna Waltersneil Deuce Neutrophils/100 WBC (Bld) 67.9 % Normal 43.0-75.0 [facility] Comment on above: Performed By: #### C BC ####[facility] Fcwcikgquu5934 [place] [address]DrKianna Tripathi Platelet mean volume (Bld) [Entitic vol] 9.1 fL Critically low 9.5-13.5 [facility] Comment on above: Performed By: #### C BC ####[facility] Xnyegpdrba[address] [place], [place] [address]DrKianna Tripathi PLT 256 103/ul Normal 150-450 [facility] Comment on above: Performed By: #### C BC ####[facility] Nxtjzfdavn[address] [place], [place] [address]DrKianna Tripathi RBC 3.52 106/ul Critically low 4.20-5.40 [facility] Comment on above: Performed By: #### C BC ####[facility] Naglcxdgwd398[address] [place], [place] [address]DrKianna Tripathi WBC 6.7 103/ul Normal 4.0-11.0 [facility] Comment on above: Performed By: #### C BC ####[facility] Gdutkqpvcz[address] [place], [place] [address]DrKianna Tripathi PROF 14(COMP METB)on 023 Albumin [Mass/Vol] 2.8 g/dL Critically low 3.4-5.0 [facility] Comment on above: Performed By: #### C MP ####[facility] Kevdthkqok[address] [place] [id number] Tripathi Albumin/Globulin [Mass ratio] 0.9 {ratio} Normal [facility] Comment on above: Performed By: #### C MP ####[facility] [address] [place] [address]Dr. Airam Deuce ALP [Catalytic activity/Vol] 118 U/L Critically high 46-116 [facility] Comment on above: Performed By: #### C MP ####[facility] Pmmfsvponu0766 [place] [address]Dr. Airam Deuce ALT [Catalytic activity/Vol] 23 U/L Normal 14-59 [facility] Comment on above: Performed By: #### C MP ####[facility] Mijenlbgvs[address] [place], [place] [address]Dr. Airam Tripathi Anion gap [Moles/Vol] 12.5 mmol/L Normal [facility] Comment on above: Performed By: #### C MP ####[facility] Zbmavqmbcx812[address] [place], [place] [address]Dr. Airam Deuce AST [Catalytic activity/Vol] 21 U/L Normal 15-37 [facility] Comment on above: Performed By: #### C MP ####[facility] Pqkvbvnabx643[address] [place], [place] [address]Dr. Airam Tripathi Bilirubin [Mass/Vol] 0.4 mg/dL Normal 0.2-1.0 [facility] Comment on above: Performed By: #### C MP ####[facility] Xeqlgvzzxo633[address] [place], [place] [address]Dr. Airam Tripathi Calcium [Mass/Vol] 8.2 mg/dL Critically low 8.5-10.1 [facility] Comment on above: Performed By: #### C MP ####[facility] Swrdlfxnkh7917[address] [place], [place] [address]Dr. Airam Tripathi Chloride [Moles/Vol] 99 mmol/L Normal 98-107 [facility] Comment on above: Performed By: #### C MP ####[facility] Sudvoprcxy160[address] [place], [place] [address]Dr. Airam Tripathi CO2 [Moles/Vol] 24.9 mmol/L Normal 21.0-32.0 [facility] Comment on above: Performed By: #### C MP ####[facility] Kzohjhdtzz[address] [place] [address]Dr. Airam Tripathi Creatinine [Mass/Vol] 1.61 mg/dL Critically high 0.55-1.02 [facility] Comment on above: Performed By: #### C MP ####[facility] Qcgmreozie[address] [place] [address]Dr. Airam Tripathi EGFR-AF [place] 40 mL/min/1.73m2 Critically low >=60 [facility] Comment on above: Performed By: #### C MP ####[facility] Kqxogumyia093[address] [place], [place] [address]Dr. Airam Tripathi EGFR-NON AF [place] 33 mL/min/1.73m2 Critically low >=60 [facility] Comment on above: Performed By: #### C MP ####[facility] Khnmzejgbo513[address] [place], [place] [address]Dr. Airam Tripathi Globulin (S) [Mass/Vol] 3.2 g/dL Normal [facility] Comment on above: Performed By: #### C MP ####[facility] Ftcingmjxy264[address] [place], [place] [address]Dr. Airam Tripathi Glucose [Mass/Vol] 67 mg/dL Critically low 74-106 [facility] Comment on above: Performed By: #### C MP ####[facility] Tigiilpewz5517[address] [place], [place] [address]Dr. Airam Tripathi Potassium [Moles/Vol] 5.4 mmol/L Critically high 3.5-5.1 [facility] Comment on above: Performed By: #### C MP ####[facility] Adfadeckbu763[address] [place], [place] [address]Dr. Airam Tripathi Protein [Mass/Vol] 6.0 g/dL Critically low 6.4-8.2 [facility] Comment on above: Performed By: #### C MP ####[facility] Dxmvwfpfwt040[address] [place], [place] [address]Dr. Airam Tripathi Sodium [Moles/Vol] 131 mmol/L Critically low 136-145 [facility] Comment on above: Performed By: #### C MP ####[facility] Xqcpynqnut117[address] [place], [place] [address]Dr. Airam Tripathi Urea nitrogen [Mass/Vol] 43.0 mg/dL Critically high 7.0-18.0 [facility] Comment on above: Performed By: #### C MP ####[facility] Awpwrgkvkb378[address] [place], [place] [address]Dr. Airam Deuce Urea nitrogen/Creatinine [Mass ratio] 26.7 mg/mg Normal [facility] Comment on above: Performed By: #### C MP ####[facility] Yfsefsgxnh8027[address] [place], [place] [address]Dr. Airam Deuce CBC AUTO DIFFon 10-06-2022 BASO # 0.0 103/ul Normal 0.0-0.1 [facility] Comment on above: Performed By: #### C BC ####[facility] Lgdfwcwmsm675[address] [place], [place] [address]Dr. Airam Deuce Basophils/100 WBC (Bld) 0.3 % Normal 0.2-2.0 [facility] Comment on above: Performed By: #### C BC ####[facility] Wybpizqmhp185[address] [place], [place] [address]Dr. Airam Deuce EO # 0.2 103/ul Normal 0.0-0.7 [facility] Comment on above: Performed By: #### C BC ####[facility] Clllemtpze205[address] [place], [place] [address]Dr. Selenaneil Tripathi Eosinophils/100 WBC (Bld) 3.1 % Normal 0.9-7.0 [facility] Comment on above: Performed By: #### C BC ####[facility] Kyotqnmstj628[address] [place], [place] [address]Dr. Airam Deuce Erythrocyte distribution width (RBC) [Ratio] 15.0 % Normal 11.0-15.0 [facility] Comment on above: Performed By: #### C BC ####[facility] Zbmomdwgfl706[address] [place], [place] [address]Dr. Airam Tripathi Hematocrit (Bld) [Volume fraction] 30.9 % Critically low 36.0-48.0 [facility] Comment on above: Performed By: #### C BC ####[facility] Tnxvvfuleb[address] [place] [address]Dr. Airam Tripathi Hemoglobin (Bld) [Mass/Vol] 10.1 g/dL Critically low 12.0-16.0 [facility] Comment on above: Result Comment: BIJU ENT RECIEVED 2 UNITS PRBC'S Performed By: #### C BC ####[facility] Sdpdnjsmsg698[address] [place], [place] [address]Dr. Airam Tripathi IG # 0.03 10e3/ul Normal 0.00-0.03 [facility] Comment on above: Performed By: #### C BC ####[facility] Wxkyagnimd055[address] [place], [place] [address]Dr. Airam Tripathi IG % 0.4 % Normal 0.0-0.5 [facility] Comment on above: Performed By: #### C BC ####[facility] Qwtnbaowog020[address] [place], [place] [address]Dr. Airam Tripathi LYMPH # 1.1 103/ul Critically low 1.2-3.8 [facility] Comment on above: Performed By: #### C BC ####[facility] Woziqbycsb148[address] [place], [place] [address]Dr. Airam Tripathi Lymphocytes/100 WBC (Bld) 14.4 % Critically low 20.5-60.0 [facility] Comment on above: Performed By: #### C BC ####[facility] Wmyzbfiynh4613[address] [place], [place] [address]Dr. Airam Tripathi MANUAL DIFF REQ NO Normal [facility] Comment on above: Performed By: #### C BC ####[facility] Giejnkrfrw0039[address] [place], [place] [address]Dr. Airam Tripathi MCH (RBC) [Entitic mass] 28.9 pg Normal 26.7-34.0 [facility] Comment on above: Performed By: #### C BC ####[facility] Mqupzvlnsx0913 [place] [phone]. Airam Tripathi MCHC (RBC) [Mass/Vol] 32.7 g/dL Normal 29.9-35.2 [facility] Comment on above: Performed By: #### C BC ####[facility] Pjddagfhas1765 [place] [phone]. Airam Tripathi MCV (RBC) [Entitic vol] 88.3 fL Normal 81.0-99.0 [facility] Comment on above: Performed By: #### C BC ####[facility] Zwoyywylcu2234 [place] [phone]. Airam Tripathi MONO # 0.6 103/ul Normal 0.3-0.8 [facility] Comment on above: Performed By: #### C BC ####[facility] Wnofttygjr1025[address] [place], [place] [address]Dr. Airam Deuce Monocytes/100 WBC (Bld) 7.8 % Normal 1.7-12.0 [facility] Comment on above: Performed By: #### C BC ####[facility] Ebrpciygfc[address] [place], [place] [id number]. Airam Tripathi NEUT # 5.5 103/ul Normal 1.4-6.5 [facility] Comment on above: Performed By: #### C BC ####[facility] Flyfiyxwmy678[address] [place], [place] [address]Dr. Airam Tripathi Neutrophils/100 WBC (Bld) 74.0 % Normal 43.0-75.0 [facility] Comment on above: Performed By: #### C BC ####[facility] Wxkgbwadiz0386 [place] [phone]. Airam Tripathi Platelet mean volume (Bld) [Entitic vol] 9.2 fL Critically low 9.5-13.5 [facility] Comment on above: Performed By: #### C BC ####[facility] Ybxludstaj97[address] [place], [place] [id number]. Airam Deuce PLT 275 103/ul Normal 150-450 [facility] Comment on above: Performed By: #### C BC ####[facility] Mixzqsaouj4136 [place] [phone]. Airam Tripathi RBC 3.50 106/ul Critically low 4.20-5.40 [facility] Comment on above: Performed By: #### C BC ####[facility] Reesanefze6196 [place] [phone]. Airam Tripathi WBC 7.4 103/ul Normal 4.0-11.0 [facility] Comment on above: Performed By: #### C BC ####[facility] Zcodlursgp0200 [place] [phone]. Airam Tripathi BASO # 0.0 103/ul Normal 0.0-0.1 [facility] Comment on above: Performed By: #### C BC ####[facility] Zllmjbmnzh6828 [place] [phone]. Airam Tripathi Basophils/100 WBC (Bld) 0.4 % Normal 0.2-2.0 [facility] Comment on above: Performed By: #### C BC ####[facility] Pbqvdoinje19[address] [place], [place] [id number]. Airam Tripathi EO # 0.2 103/ul Normal 0.0-0.7 [facility] Comment on above: Performed By: #### C BC ####[facility] Ltseabrxok64[address] [place], [place] [address]Dr. Airam Tripathi Eosinophils/100 WBC (Bld) 4.5 % Normal 0.9-7.0 [facility] Comment on above: Performed By: #### C BC ####[facility] Bedjopovkq7040 [place] [address]Dr. Airam Tripathi Erythrocyte distribution width (RBC) [Ratio] 15.1 % Critically high 11.0-15.0 [facility] Comment on above: Performed By: #### C BC ####[facility] Plfjosuxfq[address] [place], [place] [id number]. Airam Tripathi Hematocrit (Bld) [Volume fraction] 23.0 % Critically low 36.0-48.0 [facility] Comment on above: Performed By: #### C BC ####[facility] Uswsuppdyb3157 [place] [phone]. Airam Tripathi Hemoglobin (Bld) [Mass/Vol] 7.2 g/dL Critically low 12.0-16.0 [facility] Comment on above: Performed By: #### C BC ####[facility] Rzaxfxdhzj8863 [place] [phone]. Airam Tripathi IG # 0.02 10e3/ul Normal 0.00-0.03 [facility] Comment on above: Performed By: #### C BC ####[facility] Engolmpfcq4818 [place] [address]Dr. Airam Tripathi IG % 0.4 % Normal 0.0-0.5 [facility] Comment on above: Performed By: #### C BC ####[facility] Abdlrhioqj8718 [place] [address]Dr. Airam Tripathi LYMPH # 1.0 103/ul Critically low 1.2-3.8 [facility] Comment on above: Performed By: #### C BC ####[facility] Gnoernhoxo0034 [place] [address]Dr. Airam Tripathi Lymphocytes/100 WBC (Bld) 22.5 % Normal 20.5-60.0 [facility] Comment on above: Performed By: #### C BC ####[facility] Tppzjpnnur9402 [place] [address]Dr. Airam Tripathi MANUAL DIFF REQ NO Normal [facility] Comment on above: Performed By: #### C BC ####[facility] Plcdyziqbg5861 [place] [address]Dr. Airam Tripathi MCH (RBC) [Entitic mass] 28.3 pg Normal 26.7-34.0 [facility] Comment on above: Performed By: #### C BC ####[facility] Tpmngqissm6928 [place] [address]Dr. Airam Tripathi MCHC (RBC) [Mass/Vol] 31.3 g/dL Normal 29.9-35.2 [facility] Comment on above: Performed By: #### C BC ####[facility] Czmornrqwd0066 [place] [phone]. Airam Tripathi MCV (RBC) [Entitic vol] 90.6 fL Normal 81.0-99.0 [facility] Comment on above: Performed By: #### C BC ####[facility] Vrurqumhnf0439 [place] [phone]. Airam Tripathi MONO # 0.5 103/ul Normal 0.3-0.8 [facility] Comment on above: Performed By: #### C BC ####[facility] Vzswbupcyh0313 [place] [address]Dr. Airam Tripathi Monocytes/100 WBC (Bld) 9.7 % Normal 1.7-12.0 [facility] Comment on above: Performed By: #### C BC ####[facility] Ypyibboped646[address] [place], [place] [address]Dr. Airam Tripathi NEUT # 2.9 103/ul Normal 1.4-6.5 [facility] Comment on above: Performed By: #### C BC ####[facility] Enlqeqenml9263 [place] [address]Dr. Airam Tripathi Neutrophils/100 WBC (Bld) 62.5 % Normal 43.0-75.0 [facility] Comment on above: Performed By: #### C BC ####[facility] Ipuaamzxll[address] [place], [place] [address]Dr. Airam Tripathi Platelet mean volume (Bld) [Entitic vol] 8.9 fL Critically low 9.5-13.5 [facility] Comment on above: Performed By: #### C BC ####[facility] Jbxhlomkqi2637 [place] [phone]. Airam Tripathi PLT 210 103/ul Normal 150-450 [facility] Comment on above: Performed By: #### C BC ####[facility] Dvnjzoletx[address] [place], [place] [id number]. Airam Tripathi RBC 2.54 106/ul Critically low 4.20-5.40 [facility] Comment on above: Performed By: #### C BC ####[facility] Xxrwjzdcsz15[address] [place], [place] [address]Dr. Airam Tripathi WBC 4.6 103/ul Normal 4.0-11.0 [facility] Comment on above: Performed By: #### C BC ####[facility] Dlgzdleeat6033 [place] [address]Dr. Airam Tripathi OSMOLALITYon 10-06-2022 Osmolality [Osmolality] 279 mosm/kg Normal 275-295 [facility] Comment on above: Performed By: #### O SMO ####[facility] Xjidirpwhj2440 [place] [address]Dr. Airam Tripathi POINT OF CARE GLUCOSEon 09-24 Glucose [Mass/Vol] 72 mg/dL Critically low 74-106 [facility] Comment on above: Performed By: #### P OCGLUC ####[facility] Hxogqqiotd0370 [place] [address]Dr. Airam Tripathi Glucose [Mass/Vol] 102 mg/dL Normal 74-106 [facility] Comment on above: Performed By: #### P OCGLUC ####[facility] Puomxehbcl3544 [place] [address]Dr. Airam Tripathi Glucose [Mass/Vol] 165 mg/dL Critically high 74-106 [facility] Comment on above: Performed By: #### P OCGLUC ####[facility] Tjsvvdllbf5368 [place] [address]Dr. Airam Tripathi PROF 14(COMP METB)on 023 Albumin [Mass/Vol] 2.6 g/dL Critically low 3.4-5.0 [facility] Comment on above: Performed By: #### C MP ####[facility] Tpsafgseux7127 [place] [address]Dr. Airam Tripathi Albumin/Globulin [Mass ratio] 0.9 {ratio} Normal [facility] Comment on above: Performed By: #### C MP ####[facility] Ftbsaealks7660 [place] [address]Dr. Airam Tripathi ALP [Catalytic activity/Vol] 107 U/L Normal 46-116 [facility] Comment on above: Performed By: #### C MP ####[facility] Sdlaaovzwp2806 [place] [phone]. Airam Tripathi ALT [Catalytic activity/Vol] 22 U/L Normal 14-59 [facility] Comment on above: Performed By: #### C MP ####[facility] Dcxnqmyxdz0017 [place] [phone]. Airam Tripathi Anion gap [Moles/Vol] 10.0 mmol/L Normal [facility] Comment on above: Performed By: #### C MP ####[facility] Ydbuitwxej3826 [place] [phone]. Airam Tripathi AST [Catalytic activity/Vol] 19 U/L Normal 15-37 [facility] Comment on above: Performed By: #### C MP ####[facility] Eamvnoqxam9025 [place] [address]Dr. Airam Tripathi Bilirubin [Mass/Vol] 0.2 mg/dL Normal 0.2-1.0 [facility] Comment on above: Performed By: #### C MP ####[facility] Ceimyhcuwe5208 [place] [phone]. Airam Tripathi Calcium [Mass/Vol] 8.1 mg/dL Critically low 8.5-10.1 [facility] Comment on above: Performed By: #### C MP ####[facility] Bplcnqewhi6273 [place] [phone]. Airam Tripathi Chloride [Moles/Vol] 100 mmol/L Normal 98-107 [facility] Comment on above: Performed By: #### C MP ####[facility] Qmghjdbvjf9472 [place] [phone]. Airam Tripathi CO2 [Moles/Vol] 26.2 mmol/L Normal 21.0-32.0 [facility] Comment on above: Performed By: #### C MP ####[facility] Bkdqvglpyx1024 [place] [phone]. Airam Tripathi Creatinine [Mass/Vol] 1.90 mg/dL Critically high 0.55-1.02 [facility] Comment on above: Performed By: #### C MP ####[facility] Pxzvtykmxw9340 [place] [phone]. Airam Tripathi EGFR-AF [place] 33 mL/min/1.73m2 Critically low >=60 [facility] Comment on above: Performed By: #### C MP ####[facility] Keldbgdzct2449 [place] [phone]. Airam Tripathi EGFR-NON AF [place] 27 mL/min/1.73m2 Critically low >=60 [facility] Comment on above: Performed By: #### C MP ####[facility] Qaxwcnjqoo0830 [place] [phone]. Airam Tripathi Globulin (S) [Mass/Vol] 2.8 g/dL Normal [facility] Comment on above: Performed By: #### C MP ####[facility] Laoxfxnxjj5251 [place] [phone]. Airam Tripathi Glucose [Mass/Vol] 115 mg/dL Critically high 74-106 [facility] Comment on above: Performed By: #### C MP ####[facility] Lqdyowtrnc9428 [place] [phone]. Airam Tripathi Potassium [Moles/Vol] 5.2 mmol/L Critically high 3.5-5.1 [facility] Comment on above: Performed By: #### C MP ####[facility] Jzxwywvfik7807 [place] [phone]. Airam Tripathi Protein [Mass/Vol] 5.4 g/dL Critically low 6.4-8.2 [facility] Comment on above: Performed By: #### C MP ####[facility] Ulqxplcxiu3365 [place] [phone]. Airam Tripathi Sodium [Moles/Vol] 131 mmol/L Critically low 136-145 [facility] Comment on above: Performed By: #### C MP ####[facility] Elurcxyeuq0850 [place] [phone]. Airam Tripathi Urea nitrogen [Mass/Vol] 41.0 mg/dL Critically high 7.0-18.0 [facility] Comment on above: Performed By: #### C MP ####[facility] Muqhdzhnyy5239 [place] [phone]. Airam Tripathi Urea nitrogen/Creatinine [Mass ratio] 21.6 mg/mg Normal [facility] Comment on above: Performed By: #### C MP ####[facility] Inikkcivju[address] [place], [place] [id number]. Airam Tripathi TYPE AND SCREENon 10-06-2022 TYPE AND SCREEN Negative Normal [facility] Comment on above: Performed By: #### T NS ####[facility] Ppvrwcfxje833[address] [place], [place] [address]Dr. Airam Tripathi CBC AUTO DIFFon 10-05-2022 BASO # 0.0 103/ul Normal 0.0-0.1 [facility] Comment on above: Performed By: #### C BC ####[facility] Wyitwoqbqp0815[address] [place], [place] [address]Dr. Airam Deuce Basophils/100 WBC (Bld) 0.5 % Normal 0.2-2.0 [facility] Comment on above: Performed By: #### C BC ####[facility] Mewoyvbgzb35[address] [place], [place] [address]Dr. Airam Tripathi EO # 0.2 103/ul Normal 0.0-0.7 [facility] Comment on above: Performed By: #### C BC ####[facility] Sjmtwjsrxz245[address] [place], [place] [address]Dr. Airam Tripathi Eosinophils/100 WBC (Bld) 3.2 % Normal 0.9-7.0 [facility] Comment on above: Performed By: #### C BC ####[facility] Svafxrtjvl1716[address] [place], [place] [address]Dr. Airam Tripathi Erythrocyte distribution width (RBC) [Ratio] 15.2 % Critically high 11.0-15.0 [facility] Comment on above: Performed By: #### C BC ####[facility] Qgnauikbbg2927[address] [place], [place] [address]Dr. Airam Tripathi Hematocrit (Bld) [Volume fraction] 24.7 % Critically low 36.0-48.0 [facility] Comment on above: Performed By: #### C BC ####[facility] Jqaqbcrtxc1706 [place] [address]Dr. Airam Tripathi Hemoglobin (Bld) [Mass/Vol] 7.6 g/dL Critically low 12.0-16.0 [facility] Comment on above: Performed By: #### C BC ####[facility] Tfmphssurb5084 [place] [address]Dr. Airam Tripathi IG # 0.02 10e3/ul Normal 0.00-0.03 [facility] Comment on above: Performed By: #### C BC ####[facility] Nvxfnjnpkb787[address] [place], [place] [address]Dr. Airam Tripathi IG % 0.3 % Normal 0.0-0.5 [facility] Comment on above: Performed By: #### C BC ####[facility] Mwubhqwvmz145[address] [place], [place] [address]Dr. Airam Tripathi LYMPH # 1.1 103/ul Critically low 1.2-3.8 [facility] Comment on above: Performed By: #### C BC ####[facility] Bykplkhihg138[address] [place], [place] [address]Dr. Airam Tripathi Lymphocytes/100 WBC (Bld) 18.4 % Critically low 20.5-60.0 [facility] Comment on above: Performed By: #### C BC ####[facility] Pxdkugcyim0016[address] [place], [place] [address]Dr. Airam Tripathi MANUAL DIFF REQ NO Normal [facility] Comment on above: Performed By: #### C BC ####[facility] Xwmshwuwbi644[address] [place], [place] [address]Dr. Airam Tripathi MCH (RBC) [Entitic mass] 28.5 pg Normal 26.7-34.0 [facility] Comment on above: Performed By: #### C BC ####[facility] Kbcdrxyeba329[address] [place], [place] [address]Dr. Airam Tripathi MCHC (RBC) [Mass/Vol] 30.8 g/dL Normal 29.9-35.2 [facility] Comment on above: Performed By: #### C BC ####[facility] Anwyrgxyoq3272 [place] [phone]. Airam Tripathi MCV (RBC) [Entitic vol] 92.5 fL Normal 81.0-99.0 [facility] Comment on above: Performed By: #### C BC ####[facility] Szcykxksgu2352 [place] [phone]. Airam Tripathi MONO # 0.6 103/ul Normal 0.3-0.8 [facility] Comment on above: Performed By: #### C BC ####[facility] Nmifdhxqyq35[address] [place], [place] [id number]. Airam Tripathi Monocytes/100 WBC (Bld) 10.0 % Normal 1.7-12.0 [facility] Comment on above: Performed By: #### C BC ####[facility] Mvttepmuop878[address] [place], [place] [address]Dr. Airam Tripathi NEUT # 4.0 103/ul Normal 1.4-6.5 [facility] Comment on above: Performed By: #### C BC ####[facility] Kakzpgcedy[address] [place], [place] [id number]. Airam Tripathi Neutrophils/100 WBC (Bld) 67.6 % Normal 43.0-75.0 [facility] Comment on above: Performed By: #### C BC ####[facility] Yqaciarqbc958[address] [place], [place] [address]Dr. Airam Tripathi Platelet mean volume (Bld) [Entitic vol] 8.8 fL Critically low 9.5-13.5 [facility] Comment on above: Performed By: #### C BC ####[facility] Eoppkfuejf[address] [place], [place] [id number]. Airam Tripathi PLT 226 103/ul Normal 150-450 [facility] Comment on above: Performed By: #### C BC ####[facility] Ujjzflccck[address] [place], [place] [address]Dr. Airam Tripathi RBC 2.67 106/ul Critically low 4.20-5.40 [facility] Comment on above: Performed By: #### C BC ####[facility] Kmmkeogigj7895 [place], [place] [address]Uf. Airam Tripathi WBC 5.9 103/ul Normal 4.0-11.0 [facility] Comment on above: Performed By: #### C BC ####[facility] Uomepidgjp1832 [place], [place] [address]Hu. Airam Tripathi Covid-19 PCR (CVDTBH)on 09-24 SARS-CoV-2 (COVID-19) RNA MIKE+probe Ql (Unsp spec) Not detected Normal NOT DETECTED [facility] Comment on above: Result Comment: When diagnostic [...] for this test is supported by the [employer] of [employer] and Human Service's declaration that [...] Performed By: #### C VDTBH ####[facility] Fbxfsdkzpt6453 [place] [phone]. Airam Tripathi MAGNESIUMon 10-05-2022 Magnesium [Mass/Vol] 1.7 mg/dL Critically low 1.8-2.4 [facility] Comment on above: Performed By: #### M G, CMP ####[facility] Epmodqvhea5141 [place] [phone]. Airam Tripathi POINT OF CARE GLUCOSEon 09-24 Glucose [Mass/Vol] 92 mg/dL Normal 74-106 [facility] Comment on above: Performed By: #### P OCGLUC ####[facility] Ugsuxfiqqh1488 [place] [address]Dr. Airam Tripathi PROF 14(COMP METB)on 023 Albumin [Mass/Vol] 2.9 g/dL Critically low 3.4-5.0 [facility] Comment on above: Performed By: #### Nadya Calderon, CMP ####[facility] Gqtylsscly[address] [place], [place] [address]Dr. Airam Tripathi Albumin/Globulin [Mass ratio] 0.9 {ratio} Normal [facility] Comment on above: Performed By: #### Nadya Calderon, CMP ####[facility] Thcadburoc[address] [place], [place] [address]Dr. Airam Tripathi ALP [Catalytic activity/Vol] 122 U/L Critically high 46-116 [facility] Comment on above: Performed By: #### Nadya Calderon, CMP ####[facility] Zsaomvyzmz380[address] [place], [place] [address]Dr. Airam Tripathi ALT [Catalytic activity/Vol] 24 U/L Normal 14-59 [facility] Comment on above: Performed By: #### Nadya Calderon, CMP ####[facility] Eecaqlscdl[address] [place], [place] [address]Dr. Airam Tripathi Anion gap [Moles/Vol] 13.1 mmol/L Normal [facility] Comment on above: Performed By: #### Nadya Calderon, CMP ####[facility] Uyapxujmxw45[address] [place], [place] [address]Dr. Airam Tripathi AST [Catalytic activity/Vol] 21 U/L Normal 15-37 [facility] Comment on above: Performed By: #### Nadya Calderon, CMP ####[facility] Dcngfzpkuk[address] [place], [place] [address]Dr. Airam Tripathi Bilirubin [Mass/Vol] 0.2 mg/dL Normal 0.2-1.0 [facility] Comment on above: Performed By: #### Nadya Calderon, CMP ####[facility] Kakvavqpij85[address] [place], [place] [address]Dr. Airam Tripathi Calcium [Mass/Vol] 8.4 mg/dL Critically low 8.5-10.1 [facility] Comment on above: Performed By: #### M G, CMP ####[facility] [address]sine[address] [place] [address]Dr. Airam Tripathi Chloride [Moles/Vol] 102 mmol/L Normal 98-107 [facility] Comment on above: Performed By: #### M G, CMP ####[facility] Cyyfxkibei084[address] [place], [place] [address]Dr. Selenaneil Deuce CO2 [Moles/Vol] 23.2 mmol/L Normal 21.0-32.0 [facility] Comment on above: Performed By: #### M G, CMP ####[facility] Cjokvhqqyn99[address] [place], [place] [address]Dr. Airam Tripathi Creatinine [Mass/Vol] 1.96 mg/dL Critically high 0.55-1.02 [facility] Comment on above: Performed By: #### Nadya Calderon, CMP ####[facility] Zpufrhdzrc8[address] [place], [place] [address]Dr. Airam Tripathi EGFR-AF [place] 32 mL/min/1.73m2 Critically low >=60 [facility] Comment on above: Performed By: #### Nadya Calderon, CMP ####[facility] Ylttjvueqt[address] [place], [place] [address]Dr. Airam Tripathi EGFR-NON AF [place] 26 mL/min/1.73m2 Critically low >=60 [facility] Comment on above: Performed By: #### Nadya Calderon, CMP ####[facility] Mwiolvjqbn974[address] [place], [place] [address]Dr. Airam Tripathi Globulin (S) [Mass/Vol] 3.2 g/dL Normal [facility] Comment on above: Performed By: #### Nadya G, CMP ####[facility] Pfvcwmzqqd8425[address] [place], [place] [address]Dr. Airam Tripathi Glucose [Mass/Vol] 68 mg/dL Critically low 74-106 [facility] Comment on above: Performed By: #### M G, CMP ####[facility] Rxogeazwyz873[address] [place], [place] [address]Dr. Airam Tripathi Potassium [Moles/Vol] 5.3 mmol/L Critically high 3.5-5.1 [facility] Comment on above: Performed By: #### M Yumiko, CMP ####[facility] Kmbvaurlds325[address] [place], [place] [address]Dr. Airam Tripathi Protein [Mass/Vol] 6.1 g/dL Critically low 6.4-8.2 [facility] Comment on above: Performed By: #### M Yumiko, CMP ####[facility] Pfdfjmyxya3801[address] [place], [place] [address]Dr. Airam Tripathi Sodium [Moles/Vol] 133 mmol/L Critically low 136-145 [facility] Comment on above: Performed By: #### M Yumiko, CMP ####[facility] Knuffzrvvl1212[address] [place], [place] [address]Dr. Airam Tripathi Urea nitrogen [Mass/Vol] 39.0 mg/dL Critically high 7.0-18.0 [facility] Comment on above: Performed By: #### Nadya Calderon, CMP ####[facility] Rolpxbirhd7301[address] [place], [place] [address]Dr. Airam Tripathi Urea nitrogen/Creatinine [Mass ratio] 19.9 mg/mg Normal [facility] Comment on above: Performed By: #### Nadya Calderon, CMP ####[facility] Npehmltsqd008[address] [place], [place] [address]Dr. Airam Tripathi SODIUM RANDOM URINEon 2022 Sodium (U) [Moles/Vol] 37 mmol/L Normal 30-90 [facility] Comment on above: Performed By: #### N AU ####[facility] Lozzwzcsji9969[address] [place], [place] [address]Dr. Airam Tripathi UA RANDOM W/MICROSCOPICon BACTERIA TRACE Abnormal NONE SEEN [facility] Comment on above: Performed By: #### U AMIC ####[facility] Pjvaydiiha737[address] [place], [place] [address]Dr. Airam Tripathi Bilirubin Ql (U) Negative Normal NEGATIVE [facility] Comment on above: Performed By: #### U AMIC ####[facility] Nsctlcecao848[address] [place], [place] [address]Dr. Airam Tripathi CAST SEEN Abnormal NONE SEEN [facility] Comment on above: Performed By: #### U AMIC ####[facility] F[address]zjeasrey[address] [place] [address]Dr. Airam Tripathi Clarity (U) CLEAR Normal CLEAR [facility] Comment on above: Performed By: #### U AMIC ####[facility] X[address]qdljp[address] [place] [id number]. Airam Tripathi Color (U) YELLOW Normal YELLOW [facility] Comment on above: Performed By: #### U AMIC ####[facility] Psqtorytoy[address] [place] [id number]. Airam Deuce Crystals LM Nom (Urine sed) NONE SEEN Normal NONE SEEN [facility] Comment on above: Performed By: #### U AMIC ####[facility] Kyclxqwatg4112[address] [place], [place] [address]Dr. Selenaneil Tripathi Epithelial cells LM Ql (Urine sed) RARE Normal NONE SEEN /RARE [facility] Comment on above: Performed By: #### U AMIC ####[facility] Uqkumwiksy436[address] [place], [place] [address]Dr. Airam Tripathi Glucose Ql (U) Negative Normal NEGATIVE [facility] Comment on above: Performed By: #### U AMIC ####[facility] Erhtzdxtij39110[address] [place], [place] [address]Dr. Airam Tripathi Hemoglobin Ql (U) Negative Normal NEGATIVE [facility] Comment on above: Performed By: #### U AMIC ####[facility] Abbijvvjdv022[address] [place], [place] [address]Dr. Airam Tripathi HYALINE CAST RARE Normal [facility] Comment on above: Performed By: #### U AMIC ####[facility] Fbwhpuaqxl899[address] [place], [place] [address]Dr. Airam Tripathi Ketones Ql (U) TRACE Abnormal NEGATIVE [facility] Comment on above: Performed By: #### U AMIC ####[facility] Xdwsqbephp175[address] [place], [place] [address]Dr. Airam Tripathi LEUKOCYTES Negative Normal NEGATIVE [facility] Comment on above: Performed By: #### U AMIC ####[facility] Souurojhgu[address] [place] [address]Dr. Airam Tripathi MUCOUS NONE SEEN Normal NONE SEEN [facility] Comment on above: Performed By: #### U AMIC ####[facility] Btqljjitgc[address] [place] [address]Dr. Airam Tripathi Nitrite Ql (U) Negative Normal NEGATIVE [facility] Comment on above: Performed By: #### U AMIC ####[facility] Cycsbmlrgt860[address] [place], [place] [address]Dr. Airam Tripathi pH (U) 5.0 [pH] Normal 5-9 [facility] Comment on above: Performed By: #### U AMIC ####[facility] Qhhsurlupt35[address] [place], [place] [address]Dr. Airam Tripathi RBC 0-2 Normal 0-2 [facility] Comment on above: Performed By: #### U AMIC ####[facility] Jwkjanrhbk299[address] [place], [place] [address]Dr. Airam Tripathi SPEC GRAVITY 1.015 Normal 1.005-<=1. 025 [facility] Comment on above: Performed By: #### U AMIC ####[facility] Qgxoaynyxz868[address] [place], [place] [address]Dr. Airam Tripathi UA PROTEIN Negative Normal NEGATIVE/ TRACE [facility] Comment on above: Performed By: #### U AMIC ####[facility] Wixjxhuxbn9914[address] [place], [place] [address]Dr. Airam Tripathi Urobilinogen Qn (U) 0.2 {Ligia'U}/dL Normal 0.2 - 1. 0 [facility] Comment on above: Performed By: #### U AMIC ####[facility] Jdxougkhir659[address] [place], [place] [address]Dr. Airam Tripathi WBC NONE SEEN Normal NONE SEEN [facility] Comment on above: Performed By: #### U AMIC ####[facility] Prrmlelxjc089[address] [place], [place] [address]Dr. Airam Tripathi CBC AUTO DIFFon 10-04-2022 BASO # 0.0 103/ul Normal 0.0-0.1 [facility] Comment on above: Performed By: #### C BC ####[facility] Wgofqzxlfw733[address] [place], [place] [address]Dr. Airam Tripathi Basophils/100 WBC (Bld) 0.3 % Normal 0.2-2.0 [facility] Comment on above: Performed By: #### C BC ####[facility] Vwfwifxjsw867[address] [place], [place] [address]Dr. Airam Tripathi EO # 0.2 103/ul Normal 0.0-0.7 [facility] Comment on above: Performed By: #### C BC ####[facility] Pfzhulzlih538[address] [place], [place] [address]Dr. Airam Tripathi Eosinophils/100 WBC (Bld) 3.2 % Normal 0.9-7.0 [facility] Comment on above: Performed By: #### C BC ####[facility] Cfofyjtxho948[address] [place], [place] [address]Dr. Airam Tripathi Erythrocyte distribution width (RBC) [Ratio] 15.1 % Critically high 11.0-15.0 [facility] Comment on above: Performed By: #### C BC ####[facility] Ikthynytav329[address] [place], [place] [address]Dr. Airam Tripathi Hematocrit (Bld) [Volume fraction] 27.6 % Critically low 36.0-48.0 [facility] Comment on above: Performed By: #### C BC ####[facility] Mkjvvoonua433[address] [place], [place] [address]Dr. Airam Tripathi Hemoglobin (Bld) [Mass/Vol] 8.7 g/dL Critically low 12.0-16.0 [facility] Comment on above: Performed By: #### C BC ####[facility] Hibnymgfnc965[address] [place], [place] [address]Dr. Airam Tripathi IG # 0.03 10e3/ul Normal 0.00-0.03 [facility] Comment on above: Performed By: #### C BC ####[facility] Kynvkvzxav7618[address] [place], [place] [address]Dr. Airam Tripathi IG % 0.4 % Normal 0.0-0.5 [facility] Comment on above: Performed By: #### C BC ####[facility] Venisbdpal[address] [place] [address]DrKianna Airam Deuce LYMPH # 1.2 103/ul Normal 1.2-3.8 [facility] Comment on above: Performed By: #### C BC ####[facility] Ntddulzgsj5[address] [place] [address]DrKianna Airam Deuce Lymphocytes/100 WBC (Bld) 16.4 % Critically low 20.5-60.0 [facility] Comment on above: Performed By: #### C BC ####[facility] Crglcoshan6314[address] [place], [place] [address]DrKianna Selenaneil Tripathi MANUAL DIFF REQ NO Normal [facility] Comment on above: Performed By: #### C BC ####[facility] Ycrzumwtbj612[address] [place], [place] [address]DrKianna Airam Deuce MCH (RBC) [Entitic mass] 28.5 pg Normal 26.7-34.0 [facility] Comment on above: Performed By: #### C BC ####[facility] Morvfklfkr[address] [place], [place] [address]DrKianna Airam Deuce MCHC (RBC) [Mass/Vol] 31.5 g/dL Normal 29.9-35.2 [facility] Comment on above: Performed By: #### C BC ####[facility] Swgctpidzn205[address] [place], [place] [address]DrKianna Selenaneil Tripathi MCV (RBC) [Entitic vol] 90.5 fL Normal 81.0-99.0 [facility] Comment on above: Performed By: #### C BC ####[facility] Psojccctab867[address] [place], [place] [address]DrKianna Tripathi MONO # 0.5 103/ul Normal 0.3-0.8 [facility] Comment on above: Performed By: #### C BC ####[facility] Qihyywmtun[address] [place], [place] [id number] Tripathi Monocytes/100 WBC (Bld) 7.3 % Normal 1.7-12.0 [facility] Comment on above: Performed By: #### C BC ####[facility] Gfmyojmsim[address] [place] [address]DrKianna Waltersneil Tripathi NEUT # 5.4 103/ul Normal 1.4-6.5 [facility] Comment on above: Performed By: #### C BC ####[facility] Lelstelvgc[address] [place] [address]DrKianna Tripathi Neutrophils/100 WBC (Bld) 72.4 % Normal 43.0-75.0 [facility] Comment on above: Performed By: #### C BC ####[facility] Waztkurtsc13[address] [place] [address]DrKianna Tripathi Platelet mean volume (Bld) [Entitic vol] 9.1 fL Critically low 9.5-13.5 [facility] Comment on above: Performed By: #### C BC ####[facility] Eftsbaiipb62[address] [place], [place] [address]DrKianna Tripathi PLT 304 103/ul Normal 150-450 [facility] Comment on above: Performed By: #### C BC ####[facility] Odwpypshtn08220[address] [place], [place] [address]DrKianna Tripathi RBC 3.05 106/ul Critically low 4.20-5.40 [facility] Comment on above: Performed By: #### C BC ####[facility] Jvufvkimjl870[address] [place], [place] [address]DrKianna Tripathi WBC 7.4 103/ul Normal 4.0-11.0 [facility] Comment on above: Performed By: #### C BC ####[facility] Wpvvaqslte47[address] [place] [address]Dr. Airam Tripathi PROF 14(COMP METB)on 023 Albumin [Mass/Vol] 3.3 g/dL Critically low 3.4-5.0 [facility] Comment on above: Performed By: #### C MP ####[facility] Rmuwvugbde854[address] [place], [place] [address]DrKianna Tripathi Albumin/Globulin [Mass ratio] 0.9 {ratio} Normal [facility] Comment on above: Performed By: #### C MP ####[facility] Sxgccydnta89[address] [place] [address]Dr. Airam Deuce ALP [Catalytic activity/Vol] 127 U/L Critically high 46-116 [facility] Comment on above: Performed By: #### C MP ####[facility] Saudnipdyy086[address] [place], [place] [address]Dr. Airam Deuce ALT [Catalytic activity/Vol] 29 U/L Normal 14-59 [facility] Comment on above: Performed By: #### C MP ####[facility] Dcbklqrqed974[address] [place], [place] [address]Dr. Selenaneil Decue Anion gap [Moles/Vol] 14.6 mmol/L Normal [facility] Comment on above: Performed By: #### C MP ####[facility] Bwdhswcooj056[address] [place], [place] [address]Dr. Airam Deuce AST [Catalytic activity/Vol] 28 U/L Normal 15-37 [facility] Comment on above: Performed By: #### C MP ####[facility] Qtsvgbxrbk868[address] [place], [place] [address]Dr. Airam Deuce Bilirubin [Mass/Vol] 0.3 mg/dL Normal 0.2-1.0 [facility] Comment on above: Performed By: #### C MP ####[facility] Hrhonhckxl687[address] [place], [place] [address]Dr. Airam Tripathi Calcium [Mass/Vol] 8.9 mg/dL Normal 8.5-10.1 [facility] Comment on above: Performed By: #### C MP ####[facility] Isnfeyztmt745[address] [place], [place] [address]Dr. Airam Tripathi Chloride [Moles/Vol] 99 mmol/L Normal 98-107 [facility] Comment on above: Performed By: #### C MP ####[facility] Xdipjvfkwo[address] [place], [place] [id number]. Airam Tripathi CO2 [Moles/Vol] 25.1 mmol/L Normal 21.0-32.0 [facility] Comment on above: Performed By: #### C MP ####[facility] O[address]kzntp[address] [place] [address]Dr. Airam Tripathi Creatinine [Mass/Vol] 1.42 mg/dL Critically high 0.55-1.02 [facility] Comment on above: Performed By: #### C MP ####[facility] Ctiqmxuojh56[address] [place] [address]Dr. Airam Deuce EGFR-AF [place] 46 mL/min/1.73m2 Critically low >=60 [facility] Comment on above: Performed By: #### C MP ####[facility] Gvebpkwosy40[address] [place] [address]Dr. Airam Deuce EGFR-NON AF [place] 38 mL/min/1.73m2 Critically low >=60 [facility] Comment on above: Performed By: #### C MP ####[facility] Fqlrtjlmzb270[address] [place], [place] [address]Dr. Airam Deuce Globulin (S) [Mass/Vol] 3.6 g/dL Normal [facility] Comment on above: Performed By: #### C MP ####[facility] Kideqeuccu495[address] [place], [place] [address]Dr. Airam Deuce Glucose [Mass/Vol] 79 mg/dL Normal 74-106 [facility] Comment on above: Performed By: #### C MP ####[facility] Wjwjqhaqmr800[address] [place], [place] [address]Dr. Selenaneil Tripathi Potassium [Moles/Vol] 5.7 mmol/L Critically high 3.5-5.1 [facility] Comment on above: Performed By: #### C MP ####[facility] Tcmnbieqhn695[address] [place], [place] [address]Dr. Selenaneil Tripathi Protein [Mass/Vol] 6.9 g/dL Normal 6.4-8.2 [facility] Comment on above: Performed By: #### C MP ####[facility] Oeslxtpsdg144[address] [place], [place] [address]Dr. Airam Tripathi Sodium [Moles/Vol] 133 mmol/L Critically low 136-145 [facility] Comment on above: Performed By: #### C MP ####[facility] Dcjcwrgxox9215[address] [place], [place] [address]Dr. Selenaneil Deuce Urea nitrogen [Mass/Vol] 35.0 mg/dL Critically high 7.0-18.0 [facility] Comment on above: Performed By: #### C MP ####[facility] Xstighlqmv825[address] [place], [place] [address]Dr. Airam Tripathi Urea nitrogen/Creatinine [Mass ratio] 24.6 mg/mg Normal [facility] Comment on above: Performed By: #### C MP ####[facility] Cfqssohxcs6769[address] [place], [place] [address]Dr. Airam Tripathi OSMOLALITYon 10-02-2022 Osmolality [Osmolality] 277 mosm/kg Normal 275-295 [facility] Comment on above: Performed By: #### O SMO ####[facility] Rxhkynhgnj16[address] [place], [place] [address]Dr. Selenaneil Deuce CBC AUTO DIFFon 09-29-2022 BASO # 0.0 103/ul Normal 0.0-0.1 [facility] Comment on above: Performed By: #### C BC ####[facility] Feohkotduz494[address] [place], [place] [address]Dr. Airam Tripathi Basophils/100 WBC (Bld) 0.5 % Normal 0.2-2.0 [facility] Comment on above: Performed By: #### C BC ####[facility] Ycmqoqnyym054[address] [place], [place] [address]Dr. Airam Tripathi EO # 0.2 103/ul Normal 0.0-0.7 [facility] Comment on above: Performed By: #### C BC ####[facility] Lcwjwironx050[address] [place], [place] [address]Dr. Airam Tripathi Eosinophils/100 WBC (Bld) 3.2 % Normal 0.9-7.0 [facility] Comment on above: Performed By: #### C BC ####[facility] Diyeodkxrb028[address] [place], [place] [address]Dr. Airam Tripathi Erythrocyte distribution width (RBC) [Ratio] 15.1 % Critically high 11.0-15.0 [facility] Comment on above: Performed By: #### C BC ####[facility] Jpsxflilph[address] [place] [address]Dr. Airam Tripathi Hematocrit (Bld) [Volume fraction] 26.2 % Critically low 36.0-48.0 [facility] Comment on above: Performed By: #### C BC ####[facility] Nzwovrqjlr32[address] [place], [place] [address]Dr. Airam Tripathi Hemoglobin (Bld) [Mass/Vol] 8.1 g/dL Critically low 12.0-16.0 [facility] Comment on above: Performed By: #### C BC ####[facility] Wlqgwnsavy7213[address] [place], [place] [address]Dr. Airam Tripathi IG # 0.02 10e3/ul Normal 0.00-0.03 [facility] Comment on above: Performed By: #### C BC ####[facility] Lndqeeavdr575[address] [place], [place] [address]Dr. Airam Tripathi IG % 0.4 % Normal 0.0-0.5 [facility] Comment on above: Performed By: #### C BC ####[facility] Sjusabsqee535[address] [place], [place] [address]DrKianna Airam Tripathi LYMPH # 1.3 103/ul Normal 1.2-3.8 [facility] Comment on above: Performed By: #### C BC ####[facility] Nyvvjdereh485[address] [place], [place] [address]DrKianna Airam Tripathi Lymphocytes/100 WBC (Bld) 22.6 % Normal 20.5-60.0 [facility] Comment on above: Performed By: #### C BC ####[facility] Tmambfyvrn[address] [place], [place] [address]DrKianna Airam Deuce MANUAL DIFF REQ NO Normal [facility] Comment on above: Performed By: #### C BC ####[facility] Iqhlotozsk535[address] [place], [place] [address]DrKianna Airam Deuce MCH (RBC) [Entitic mass] 28.0 pg Normal 26.7-34.0 [facility] Comment on above: Performed By: #### C BC ####[facility] Mamgwofbsc[address] [place] [address]DrKianna Tripathi MCHC (RBC) [Mass/Vol] 30.9 g/dL Normal 29.9-35.2 [facility] Comment on above: Performed By: #### C BC ####[facility] Kohyvtkdkj528[address] [place], [place] [address]DrKianna Tripathi MCV (RBC) [Entitic vol] 90.7 fL Normal 81.0-99.0 [facility] Comment on above: Performed By: #### C BC ####[facility] Ciqxeejhgm842[address] [place], [place] [address]DrKianna Tripathi MONO # 0.5 103/ul Normal 0.3-0.8 [facility] Comment on above: Performed By: #### C BC ####[facility] Kethpocbju326[address] [place], [place] [address]DrKianna Tripathi Monocytes/100 WBC (Bld) 9.6 % Normal 1.7-12.0 [facility] Comment on above: Performed By: #### C BC ####[facility] Parqjlsync698[address] [place], [place] [address]DrKianna Tripathi NEUT # 3.6 103/ul Normal 1.4-6.5 [facility] Comment on above: Performed By: #### C BC ####[facility] Rqnowmgazb464[address] [place], [place] [address]DrKianna Tripathi Neutrophils/100 WBC (Bld) 63.7 % Normal 43.0-75.0 [facility] Comment on above: Performed By: #### C BC ####[facility] Gzbwnbhrnu[address] [place], [place] [address]DrKianna Tripathi Platelet mean volume (Bld) [Entitic vol] 9.4 fL Critically low 9.5-13.5 [facility] Comment on above: Performed By: #### C BC ####[facility] Cbpgptlvpl153[address] [place], [place] [address]Dr. Airam Tripathi PLT 258 103/ul Normal 150-450 [facility] Comment on above: Performed By: #### C BC ####[facility] Qrsbdzufou78[address] [place] [address]Dr. Selenaneil Deuce RBC 2.89 106/ul Critically low 4.20-5.40 [facility] Comment on above: Performed By: #### C BC ####[facility] Ghqudvfyuh4538 [place] [address]Dr. Airam Tripathi WBC 5.6 103/ul Normal 4.0-11.0 [facility] Comment on above: Performed By: #### C BC ####[facility] Eppxjvebgb8635 [place] [address]DrKianna Tripathi PROF 14(COMP METB)on 023 Albumin [Mass/Vol] 3.0 g/dL Critically low 3.4-5.0 [facility] Comment on above: Performed By: #### C MP ####[facility] Bzfqroocsz190[address] [place], [place] [address]Dr. Airam Tripathi Albumin/Globulin [Mass ratio] 1.1 {ratio} Normal [facility] Comment on above: Performed By: #### C MP ####[facility] Lqbeqzoeow39[address] [place], [place] [address]Dr. Airam Tripathi ALP [Catalytic activity/Vol] 102 U/L Normal 46-116 [facility] Comment on above: Performed By: #### C MP ####[facility] Pqjkamrbzk5135 [place] [address]Dr. Airam Tripathi ALT [Catalytic activity/Vol] 20 U/L Normal 14-59 [facility] Comment on above: Performed By: #### C MP ####[facility] Ymlgcgdfau[address] [place], [place] [address]Dr. Airam Tripathi Anion gap [Moles/Vol] 11.1 mmol/L Normal [facility] Comment on above: Performed By: #### C MP ####[facility] Quivadxjfq34[address] [place], [place] [address]Dr. Airam Tripathi AST [Catalytic activity/Vol] 18 U/L Normal 15-37 [facility] Comment on above: Performed By: #### C MP ####[facility] Wxtgndmbpb04[address] [place] [address]Dr. Airam Deuce Bilirubin [Mass/Vol] 0.2 mg/dL Normal 0.2-1.0 [facility] Comment on above: Performed By: #### C MP ####[facility] Nsacbhlyvt[address] [place], [place] [address]Dr. Airam Deuce Calcium [Mass/Vol] 8.0 mg/dL Critically low 8.5-10.1 [facility] Comment on above: Performed By: #### C MP ####[facility] Dwhqqyyddy754[address] [place], [place] [address]Dr. Selenaneil Tripathi Chloride [Moles/Vol] 100 mmol/L Normal 98-107 [facility] Comment on above: Performed By: #### C MP ####[facility] Llntebldnq[address] [place], [place] [address]Dr. Airam Deuce CO2 [Moles/Vol] 24.8 mmol/L Normal 21.0-32.0 [facility] Comment on above: Performed By: #### C MP ####[facility] Oblecdguwy985[address] [place], [place] [address]Dr. Airam Deuce Creatinine [Mass/Vol] 1.11 mg/dL Critically high 0.55-1.02 [facility] Comment on above: Performed By: #### C MP ####[facility] Nyrslpgsui040[address] [place], [place] [address]Dr. Selenaneil Deuce EGFR-AF [place]ER >60 Normal >=60 [facility] Comment on above: Performed By: #### C MP ####[facility] Nbcglfqpho317[address] [place], [place] [address]Dr. Airam Tripathi EGFR-NON AF [place] 50 mL/min/1.73m2 Critically low >=60 [facility] Comment on above: Performed By: #### C MP ####[facility] Wpliegmgjz[address] [place], [place] [address]Dr. Airam Tripathi Globulin (S) [Mass/Vol] 2.8 g/dL Normal [facility] Comment on above: Performed By: #### C MP ####[facility] P[address]rhtivby[address] [place] [address]Dr. Airam Tripathi Glucose [Mass/Vol] 77 mg/dL Normal 74-106 [facility] Comment on above: Performed By: #### C MP ####[facility] Kflawjylal48[address] [place] [address]Dr. Airam Tirpathi Potassium [Moles/Vol] 4.9 mmol/L Normal 3.5-5.1 [facility] Comment on above: Performed By: #### C MP ####[facility] Tzyrfxyxiu60[address] [place] [address]Dr. Airam Tripathi Protein [Mass/Vol] 5.8 g/dL Critically low 6.4-8.2 [facility] Comment on above: Performed By: #### C MP ####[facility] Euoitahslz[address] [place], [place] [address]Dr. Airam Tripathi Sodium [Moles/Vol] 131 mmol/L Critically low 136-145 [facility] Comment on above: Performed By: #### C MP ####[facility] Dgacsyrrsp5[address] [place], [place] [address]Dr. Airam Tripathi Urea nitrogen [Mass/Vol] 33.0 mg/dL Critically high 7.0-18.0 [facility] Comment on above: Performed By: #### C MP ####[facility] Wqaxcylnbv034[address] [place], [place] [address]Dr. Airam Tripathi Urea nitrogen/Creatinine [Mass ratio] 29.7 mg/mg Normal [facility] Comment on above: Performed By: #### C MP ####[facility] Ntvbkhnvjt16[address] [place], [place] [address]Dr. Airam Deuce ECHOCARDIO M/2D COMPLETEon 0 09-21-2022 ECHOCARDIO M/2D COMPLETE Normal [facility] OSMOLALITYon 09-21-2022 Osmolality [Osmolality] 282 mosm/kg Normal 275-295 [facility] Comment on above: Performed By: #### O SMO ####[facility] Zrgliqnmpl44[address] [place] [address]Dr. Airam Tripathi PHOSPHOLIPIDSon 09-21-2022 Phospholipids, Serum 249 mg/dL Normal 151-288 [facility] Comment on above: Performed By: #### P HOSLIP ####[facility] Gptfcwfkyv654[address] [place], [place] [address]Dr. Airam Tripathi CBC AUTO DIFFon 09-20-2022 BASO # 0.0 103/ul Normal 0.0-0.1 [facility] Comment on above: Performed By: #### C BC ####[facility] Kmcfxpdjaw[address] [place], [place] [address]Dr. Airma Deuce Basophils/100 WBC (Bld) 0.5 % Normal 0.2-2.0 [facility] Comment on above: Performed By: #### C BC ####[facility] Rzvmensudy8[address] [place], [place] [address]Dr. Airam Deuce EO # 0.2 103/ul Normal 0.0-0.7 [facility] Comment on above: Performed By: #### C BC ####[facility] Cdmnumgwua[address] [place], [place] [address]Dr. Airam Deuce Eosinophils/100 WBC (Bld) 2.9 % Normal 0.9-7.0 [facility] Comment on above: Performed By: #### C BC ####[facility] Rrreavyqqf33[address] [place], [place] [address]Dr. Selenaneil Tripathi Erythrocyte distribution width (RBC) [Ratio] 15.4 % Critically high 11.0-15.0 [facility] Comment on above: Performed By: #### C BC ####[facility] Ylndndagtj27[address] [place], [place] [address]Dr. Airam Tripathi Hematocrit (Bld) [Volume fraction] 26.3 % Critically low 36.0-48.0 [facility] Comment on above: Performed By: #### C BC ####[facility] Ohhltrwpxw866[address] [place], [place] [address]Dr. Airam Tripathi Hemoglobin (Bld) [Mass/Vol] 8.2 g/dL Critically low 12.0-16.0 [facility] Comment on above: Performed By: #### C BC ####[facility] Rvaibymbmq9721 [place] [id number]. Airam Tripathi IG # 0.03 10e3/ul Normal 0.00-0.03 [facility] Comment on above: Performed By: #### C BC ####[facility] Epmtagxset52[address] [place] [address]Dr. Airam Tripathi IG % 0.4 % Normal 0.0-0.5 [facility] Comment on above: Performed By: #### C BC ####[facility] Cvysizjooh95[address] [place] [address]Dr. Airam Tripathi LYMPH # 1.9 103/ul Normal 1.2-3.8 [facility] Comment on above: Performed By: #### C BC ####[facility] Qxgiptchtn968[address] [place], [place] [address]Dr. Airam Tripathi Lymphocytes/100 WBC (Bld) 23.0 % Normal 20.5-60.0 [facility] Comment on above: Performed By: #### C BC ####[facility] Mdznritkjn42[address] [place] [address]Dr. Airam Tripathi MANUAL DIFF REQ NO Normal [facility] Comment on above: Performed By: #### C BC ####[facility] Ioojzpyqda500[address] [place], [place] [address]Dr. Airam Tripathi MCH (RBC) [Entitic mass] 28.5 pg Normal 26.7-34.0 [facility] Comment on above: Performed By: #### C BC ####[facility] Tbszhsdlru377[address] [place], [place] [address]Dr. Airam Tripathi MCHC (RBC) [Mass/Vol] 31.2 g/dL Normal 29.9-35.2 [facility] Comment on above: Performed By: #### C BC ####[facility] Innrxipime367[address] [place], [place] [address]Dr. Airam Tripathi MCV (RBC) [Entitic vol] 91.3 fL Normal 81.0-99.0 [facility] Comment on above: Performed By: #### C BC ####[facility] Sarnuqqtzy9344 [place] [id number]. Airam Tripathi MONO # 0.7 103/ul Normal 0.3-0.8 [facility] Comment on above: Performed By: #### C BC ####[facility] Dvhuqdhdtk4822 [place] [id number]. Airam Tripathi Monocytes/100 WBC (Bld) 7.7 % Normal 1.7-12.0 [facility] Comment on above: Performed By: #### C BC ####[facility] Fzfyvodanq3281 [place] [id number]. Airam Tripathi NEUT # 5.5 103/ul Normal 1.4-6.5 [facility] Comment on above: Performed By: #### C BC ####[facility] Rtuaighodb28[address] [place], [place] [address]Dr. Airam Tripathi Neutrophils/100 WBC (Bld) 65.5 % Normal 43.0-75.0 [facility] Comment on above: Performed By: #### C BC ####[facility] Hmdimldeam7262 [place] [address]Dr. Airam Tripathi Platelet mean volume (Bld) [Entitic vol] 9.1 fL Critically low 9.5-13.5 [facility] Comment on above: Performed By: #### C BC ####[facility] Lfjolifrdo3870 [place] [id number]. Airam Tripathi PLT 258 103/ul Normal 150-450 [facility] Comment on above: Performed By: #### C BC ####[facility] Gthruhjizx[address] [place], [place] [id number]. Airam Tripathi RBC 2.88 106/ul Critically low 4.20-5.40 [facility] Comment on above: Performed By: #### C BC ####[facility] Msnwjjaghh3946 [place] [address]Dr. Airam Tripathi WBC 8.4 103/ul Normal 4.0-11.0 [facility] Comment on above: Performed By: #### C BC ####[facility] Bbcvnsnkys2143 [place] [address]Dr. Airam Deuce PROF CHEM 8 (BAS METB)on Anion gap [Moles/Vol] 10.3 mmol/L Normal [facility] Comment on above: Performed By: #### B MP ####[facility] Bezwtdfkor9364 [place] [address]Dr. Airam Tripathi Calcium [Mass/Vol] 7.9 mg/dL Critically low 8.5-10.1 [facility] Comment on above: Performed By: #### B MP ####[facility] Vxyxypygrm486[address] [place], [place] [address]Dr. Airam Tripathi Chloride [Moles/Vol] 98 mmol/L Normal 98-107 [facility] Comment on above: Performed By: #### B MP ####[facility] Yulmupczxo70[address] [place], [place] [address]Dr. Airam Tripathi CO2 [Moles/Vol] 27.5 mmol/L Normal 21.0-32.0 [facility] Comment on above: Performed By: #### B MP ####[facility] Hpmqejlviv69[address] [place], [place] [address]Dr. Airam Tripathi Creatinine [Mass/Vol] 1.44 mg/dL Critically high 0.55-1.02 [facility] Comment on above: Performed By: #### B MP ####[facility] Miezfsnyvv[address] [place], [place] [address]Dr. Airam Tripathi EGFR-AF [place] 45 mL/min/1.73m2 Critically low >=60 [facility] Comment on above: Performed By: #### B MP ####[facility] Prxkstmnpa814[address] [place], [place] [address]Dr. Airam Tripathi EGFR-NON AF [place] 37 mL/min/1.73m2 Critically low >=60 [facility] Comment on above: Performed By: #### B MP ####[facility] Nqgtkkflwd544[address] [place], [place] [address]Dr. Airam Tripathi Glucose [Mass/Vol] 91 mg/dL Normal 74-106 [facility] Comment on above: Performed By: #### B MP ####[facility] Cmywcrtrro2842 [place] [address]Dr. Airam Tripathi Potassium [Moles/Vol] 4.8 mmol/L Normal 3.5-5.1 [facility] Comment on above: Performed By: #### B MP ####[facility] Qdbqzqaiwc0382 [place] [address]Dr. Airam Tripathi Sodium [Moles/Vol] 131 mmol/L Critically low 136-145 [facility] Comment on above: Performed By: #### B MP ####[facility] Rkaxajvckv1766 [place] [address]Dr. Airam Tripathi Urea nitrogen [Mass/Vol] 40.0 mg/dL Critically high 7.0-18.0 [facility] Comment on above: Performed By: #### B MP ####[facility] Bmbxkoaglp[address] [place], [place] [address]Dr. Selenaneil Tripathi Urea nitrogen/Creatinine [Mass ratio] 27.8 mg/mg Normal [facility] Comment on above: Performed By: #### B MP ####[facility] Onlbijlegg014[address] [place], [place] [address]Dr. Airam Tripathi Anion gap [Moles/Vol] 10.6 mmol/L Normal [facility] Comment on above: Performed By: #### B MP ####[facility] Hwkpkmmzlu25[address] [place], [place] [address]Dr. Selenaneil Tripathi Calcium [Mass/Vol] 7.9 mg/dL Critically low 8.5-10.1 [facility] Comment on above: Performed By: #### B MP ####[facility] Fztwqumemf364[address] [place], [place] [address]Dr. Selenaneil Tripathi Chloride [Moles/Vol] 101 mmol/L Normal 98-107 [facility] Comment on above: Performed By: #### B MP ####[facility] Xidhsykeum75400[address] [place], [place] [address]Dr. Airam Tripathi CO2 [Moles/Vol] 27.4 mmol/L Normal 21.0-32.0 [facility] Comment on above: Performed By: #### B MP ####[facility] Ozxzpppygl2201 [place] [address]Dr. Airam Tripathi Creatinine [Mass/Vol] 1.35 mg/dL Critically high 0.55-1.02 [facility] Comment on above: Performed By: #### B MP ####[facility] Jqngfyrmwf6796 [place] [address]Dr. Airam Tripathi EGFR-AF [place] 48 mL/min/1.73m2 Critically low >=60 [facility] Comment on above: Performed By: #### B MP ####[facility] Hftiptyzjb228[address] [place], [place] [address]Dr. Airam Tripathi EGFR-NON AF [place] 40 mL/min/1.73m2 Critically low >=60 [facility] Comment on above: Performed By: #### B MP ####[facility] Xlhdzdoieb768[address] [place], [place] [address]Dr. Airam Tripathi Glucose [Mass/Vol] 114 mg/dL Critically high 74-106 [facility] Comment on above: Performed By: #### B MP ####[facility] Itpqengkix388[address] [place], [place] [address]Dr. Airam Deuce Potassium [Moles/Vol] 5.0 mmol/L Normal 3.5-5.1 [facility] Comment on above: Performed By: #### B MP ####[facility] Ewcyrkozyw197[address] [place], [place] [address]Dr. Selenaneil Deuce Sodium [Moles/Vol] 134 mmol/L Critically low 136-145 [facility] Comment on above: Performed By: #### B MP ####[facility] Rksbazzydh588[address] [place], [place] [address]Dr. Airam Tripathi Urea nitrogen [Mass/Vol] 40.0 mg/dL Critically high 7.0-18.0 [facility] Comment on above: Performed By: #### B MP ####[facility] Wfzsagozue99[address] [place], [place] [address]Dr. Airam Tripathi Urea nitrogen/Creatinine [Mass ratio] 29.6 mg/mg Normal [facility] Comment on above: Performed By: #### B MP ####[facility] Sswxzzjhsk645[address] [place], [place] [address]Dr. Airam Tripathi PTH INTACTon 09-20-2022 PTH, Intact 104 pg/mL Critically high 15-65 [facility] Comment on above: Performed By: #### P THINT ####[facility] Npbcikvliu[address] [place], [place] [address]Dr. Airam Tripathi BNPon 09-19-2022 Natriuretic peptide B (Bld) [Mass/Vol] 1272.0 pg/mL Critically high <=900.0 [facility] Comment on above: Performed By: #### H STROPN, TSH, K, BNP ####[facility] Nadczfwlup[address] [place], [place] [address]Dr. Airam Tripathi CBC AUTO DIFFon 09-19-2022 BASO # 0.0 103/ul Normal 0.0-0.1 [facility] Comment on above: Performed By: #### C BC ####[facility] Nxavcxzdvf403[address] [place], [place] [address]Dr. Airam Deuce Basophils/100 WBC (Bld) 0.5 % Normal 0.2-2.0 [facility] Comment on above: Performed By: #### C BC ####[facility] Waxrattvdw[address] [place], [place] [address]Dr. Airam Tripathi EO # 0.2 103/ul Normal 0.0-0.7 [facility] Comment on above: Performed By: #### C BC ####[facility] Mcpjdxblzi[address] [place], [place] [address]Dr. Airam Tripathi Eosinophils/100 WBC (Bld) 2.6 % Normal 0.9-7.0 [facility] Comment on above: Performed By: #### C BC ####[facility] Paqixnltrp432[address] [place], [place] [address]Dr. Airam Tripathi Erythrocyte distribution width (RBC) [Ratio] 15.5 % Critically high 11.0-15.0 [facility] Comment on above: Performed By: #### C BC ####[facility] Ofpgzelyyo118[address] [place], [place] [address]DrKianna Tripathi Hematocrit (Bld) [Volume fraction] 31.1 % Critically low 36.0-48.0 [facility] Comment on above: Performed By: #### C BC ####[facility] Cyxnqkihvj0276 [place] [address]DrKianna Tripathi Hemoglobin (Bld) [Mass/Vol] 9.6 g/dL Critically low 12.0-16.0 [facility] Comment on above: Performed By: #### C BC ####[facility] Uammbyandw0625 [place] [address]DrKianna Tripathi IG # 0.04 10e3/ul Critically high 0.00-0.03 [facility] Comment on above: Performed By: #### C BC ####[facility] Gdofspodlg2294 [place] [address]DrKianna Tripathi IG % 0.5 % Normal 0.0-0.5 [facility] Comment on above: Performed By: #### C BC ####[facility] Qcskowkzmc3528 [place] [address]DrKianna Tripathi LYMPH # 1.0 103/ul Critically low 1.2-3.8 [facility] Comment on above: Performed By: #### C BC ####[facility] Eqtddonlxa6328 [place] [address]DrKianna Tripathi Lymphocytes/100 WBC (Bld) 12.0 % Critically low 20.5-60.0 [facility] Comment on above: Performed By: #### C BC ####[facility] Dbyfhojktv9488 [place] [address]DrKianna Tripathi MANUAL DIFF REQ NO Normal [facility] Comment on above: Performed By: #### C BC ####[facility] Dpwolelyri[address] [place], [place] [address]DrKianna Tripathi MCH (RBC) [Entitic mass] 28.2 pg Normal 26.7-34.0 [facility] Comment on above: Performed By: #### C BC ####[facility] Rsyxrlbhve[address] [place], [place] [address]DrKianna Tripathi MCHC (RBC) [Mass/Vol] 30.9 g/dL Normal 29.9-35.2 [facility] Comment on above: Performed By: #### C BC ####[facility] Qyygwaxewx7346 [place] [id number]. Airam Tripathi MCV (RBC) [Entitic vol] 91.5 fL Normal 81.0-99.0 [facility] Comment on above: Performed By: #### C BC ####[facility] Zunlwovser8484 [place] [id number]. Airam Tripathi MONO # 0.5 103/ul Normal 0.3-0.8 [facility] Comment on above: Performed By: #### C BC ####[facility] Wjyyrtlfcv9815 [place] [address]Dr. Airam Tripathi Monocytes/100 WBC (Bld) 6.4 % Normal 1.7-12.0 [facility] Comment on above: Performed By: #### C BC ####[facility] Qjlsiesszn0741 [place] [address]Dr. Airma Tripathi NEUT # 6.4 103/ul Normal 1.4-6.5 [facility] Comment on above: Performed By: #### C BC ####[facility] Edjgcwalje3210 [place] [address]Dr. Airam Tripathi Neutrophils/100 WBC (Bld) 78.0 % Critically high 43.0-75.0 [facility] Comment on above: Performed By: #### C BC ####[facility] Cligjtfopr0055 [place] [address]Dr. Airam Tripathi Platelet mean volume (Bld) [Entitic vol] 9.1 fL Critically low 9.5-13.5 [facility] Comment on above: Performed By: #### C BC ####[facility] Znyjruxkat7168 [place] [id number]. Airam Tripathi PLT 318 103/ul Normal 150-450 [facility] Comment on above: Performed By: #### C BC ####[facility] Hxbpkauiln9883 [place] [address]Dr. Airam Tripathi RBC 3.40 106/ul Critically low 4.20-5.40 [facility] Comment on above: Performed By: #### C BC ####[facility] Fbozxzqajm6848 [place] [id number]. Airam Tripathi WBC 8.2 103/ul Normal 4.0-11.0 [facility] Comment on above: Performed By: #### C BC ####[facility] Jzpypnyhzx0819 [place] [address]Dr. Airam Tripathi Covid-19 PCR (CVDTBH)on 08-25 SARS-CoV-2 (COVID-19) RNA MIKE+probe Ql (Unsp spec) Not detected Normal NOT DETECTED [facility] Comment on above: Result Comment: When diagnostic [...] for this test is supported by the [employer] of [employer] and Human Service's declaration that [...] Performed By: #### C VDTBH ####[facility] Gigzjcrlre8957 [place] [address]Dr. Airam Tripathi LACTATE/LACTIC ACIDon 2022 Lactate [Moles/Vol] 0.4 mmol/L Normal 0.4-2.0 [facility] Comment on above: Performed By: #### L ACT ####[facility] Ednpgaqifw0120 [place] [address]Dr. Airam Tripathi POTASSIUMon 09-19-2022 Potassium [Moles/Vol] 6.3 mmol/L Critically high 3.5-5.1 [facility] Comment on above: Performed By: #### H STROPN, TSH, K, BNP ####[facility] Wpauctlhjy1736 [place] [address]Dr. Airam Tripathi PROF 14(COMP METB)on 023 Albumin [Mass/Vol] 3.5 g/dL Normal 3.4-5.0 [facility] Comment on above: Performed By: #### C MP ####[facility] Vgeqojvsbh2251 [place] [address]Dr. Airam Tripathi Albumin/Globulin [Mass ratio] 1.1 {ratio} Normal [facility] Comment on above: Performed By: #### C MP ####[facility] Zytkbiqzsh[address] [place], [place] [address]Dr. Airam Tripathi ALP [Catalytic activity/Vol] 113 U/L Normal 46-116 [facility] Comment on above: Performed By: #### C MP ####[facility] Optxfijcic009[address] [place], [place] [address]Dr. Airam Tripathi ALT [Catalytic activity/Vol] 26 U/L Normal 14-59 [facility] Comment on above: Performed By: #### C MP ####[facility] Wcaoxlgbzv6396 [place] [address]Dr. Airam Tripathi Anion gap [Moles/Vol] 11.5 mmol/L Normal [facility] Comment on above: Performed By: #### C MP ####[facility] Rzoggwuqur0082 [place] [address]Dr. Airam Tripathi AST [Catalytic activity/Vol] 24 U/L Normal 15-37 [facility] Comment on above: Performed By: #### C MP ####[facility] Rygzljjnmh[address] [place], [place] [address]Dr. Airam Tripathi Bilirubin [Mass/Vol] 0.3 mg/dL Normal 0.2-1.0 [facility] Comment on above: Performed By: #### C MP ####[facility] Itekxuwrjl088[address] [place], [place] [address]Dr. Airam Tripathi Calcium [Mass/Vol] 8.9 mg/dL Normal 8.5-10.1 [facility] Comment on above: Performed By: #### C MP ####[facility] Qyhxyudhgx309[address] [place], [place] [address]Dr. Airam Tripathi Chloride [Moles/Vol] 103 mmol/L Normal 98-107 [facility] Comment on above: Performed By: #### C MP ####[facility] Qhyfwbkipu27220[address] [place], [place] [address]Dr. Airam Tripathi CO2 [Moles/Vol] 27.8 mmol/L Normal 21.0-32.0 [facility] Comment on above: Performed By: #### C MP ####[facility] Kwacddxqqv411[address] [place], [place] [address]Dr. Airam Tripathi Creatinine [Mass/Vol] 1.28 mg/dL Critically high 0.55-1.02 [facility] Comment on above: Performed By: #### C MP ####[facility] Jgzfmjcuco122[address] [place], [place] [address]Dr. Airam Tripathi EGFR-AF [place] 52 mL/min/1.73m2 Critically low >=60 [facility] Comment on above: Performed By: #### C MP ####[facility] Kwuunvjkpv927[address] [place], [place] [address]Dr. Airam Tripathi EGFR-NON AF [place] 43 mL/min/1.73m2 Critically low >=60 [facility] Comment on above: Performed By: #### C MP ####[facility] Skscanidjw159[address] [place], [place] [address]Dr. Airam Tripathi Globulin (S) [Mass/Vol] 3.2 g/dL Normal [facility] Comment on above: Performed By: #### C MP ####[facility] Dqqedopglp336[address] [place], [place] [address]Dr. Airam Tripathi Glucose [Mass/Vol] 95 mg/dL Normal 74-106 [facility] Comment on above: Performed By: #### C MP ####[facility] Ujzrpetbrs664[address] [place], [place] [address]Dr. Airam Tripathi Potassium [Moles/Vol] 6.3 mmol/L Critically high 3.5-5.1 [facility] Comment on above: Performed By: #### C MP ####[facility] Kskyikmhus3507 [place] [address]Dr. Airam Tripathi Protein [Mass/Vol] 6.7 g/dL Normal 6.4-8.2 [facility] Comment on above: Performed By: #### C MP ####[facility] Etuylrrzte9060 [place] [address]Dr. Airam Tripathi Sodium [Moles/Vol] 135 mmol/L Critically low 136-145 [facility] Comment on above: Performed By: #### C MP ####[facility] Owcxdhfmjs0045 [place] [address]Dr. Airam Tripathi Urea nitrogen [Mass/Vol] 42.0 mg/dL Critically high 7.0-18.0 [facility] Comment on above: Performed By: #### C MP ####[facility] Igbwdckwas478[address] [place], [place] [address]Dr. Airam Tripathi Urea nitrogen/Creatinine [Mass ratio] 32.8 mg/mg Normal [facility] Comment on above: Performed By: #### C MP ####[facility] Vgcvgzykua734[address] [place], [place] [address]Dr. Airam Tripathi TROPONIN, HIGH SENSITIVITYon 09-19-2022 HSTROP 7.1 pg/mL Normal 4.0-51.3 [facility] Comment on above: Result Comment: CUT- OFF POINTS HAVE BEEN ESTABLISHED BASED ON THE FOURTH UNIVERSAL DEFINITIONS OF MYOCARDIALINFARCTION. THE UPPER REFERENCE LIMIT (URL) OF TROPONIN, DEFINED THE 99TH PERCENTILE OFcTnI DISTRIBUTION IN A REFERENCE POPULATION, HAS BEEN CONFIRMED THE DECISION THRESHOLDFOR [place] DIAGNOSIS. Performed By: #### H STROPN, TSH, K, BNP ####[facility] Hbygnodqzz8248 [place] [address]Dr. Airam Tripathi TSHon 09-19-2022 TSH 0.028 uIU/mL Critically low 0.358-3.74 0 [facility] Comment on above: Performed By: #### H STROPN, TSH, K, BNP ####[facility] Hfmggfadvu5933 [place] [address]Dr. Airam Tripathi UA RANDOMon 09-19-2022 Bilirubin Ql (U) Negative Normal NEGATIVE [facility] Comment on above: Performed By: #### U A ####[facility] Zitbzsqnuv365[address] [place], [place] [address]Dr. Airam Tripathi Clarity (U) CLEAR Normal CLEAR [facility] Comment on above: Performed By: #### U A ####[facility] Kxugkvvnoe8[address] [place], [place] [address]Dr. Airam Tripathi Color (U) LT. YELLOW Normal YELLOW [facility] Comment on above: Performed By: #### U A ####[facility] Yoxowugivg[address] [place], [place] [address]Dr. Airam Tripathi Glucose Ql (U) Negative Normal NEGATIVE [facility] Comment on above: Performed By: #### U A ####[facility] Kcwtyakagx494[address] [place], [place] [address]Dr. Airam Tripathi Hemoglobin Ql (U) Negative Normal NEGATIVE [facility] Comment on above: Performed By: #### U A ####[facility] Kvslzghxdi784[address] [place], [place] [address]Dr. Airam Tripathi Ketones Ql (U) Negative Normal NEGATIVE [facility] Comment on above: Performed By: #### U A ####[facility] Bykbcdvsey76[address] [place], [place] [address]Dr. Airam Tripathi LEUKOCYTES TRACE Abnormal NEGATIVE [facility] Comment on above: Performed By: #### U A ####[facility] Ottbcdzihe[address] [place], [place] [address]Dr. Airam Tripathi Nitrite Ql (U) Negative Normal NEGATIVE [facility] Comment on above: Performed By: #### U A ####[facility] Uokqavwvch[address] [place], [place] [address]Dr. Airam Tripathi pH (U) 5.5 [pH] Normal 5-9 [facility] Comment on above: Performed By: #### U A ####[facility] Ochcaipbig4134 [place] [address]Dr. Airam Tripathi SPEC GRAVITY 1.010 Normal 1.005-<=1. 025 [facility] Comment on above: Performed By: #### U A ####[facility] Qcepmnfpxi[address] [place], [place] [address]Dr. Airam Tripathi UA PROTEIN Negative Normal NEGATIVE/ TRACE [facility] Comment on above: Performed By: #### U A ####[facility] Pdctkdvyax9[address] [place], [place] [address]Dr. Airam Tripathi Urobilinogen Qn (U) 0.2 {Ligia'U}/dL Normal 0.2 - 1. 0 [facility] Comment on above: Performed By: #### U A ####[facility] Jddibpgdfl132[address] [place], [place] [address]Dr. Airam Tripathi URIC ACID SERUMon 09-19-2022 Urate [Mass/Vol] 6.9 mg/dL Critically high 2.6-6.0 [facility] Comment on above: Performed By: #### U TRESSA ####[facility] Ldvojicrvq[address] [place], [place] [address]Dr. Airam Tripathi URINE T PROTEIN CREAT RATIOo n 09-19-2022 UR TOTAL PROTEIN <6.0 Normal <=12.0 [facility] Comment on above: Performed By: #### U RTPCR ####[facility] Eadibexjjy[address] [place], [place] [address]Dr. Airam Tripathi URINE CREAT 15.12 mg/dL Critically low 20.00-300. 00 [facility] Comment on above: Performed By: #### U RTPCR ####[facility] Fzmdltzytl8[address] [place], [place] [address]Dr. Airam Tripathi VITAMIN D 25 OHon 09-19-2022 VIT D 25-OH 75.9 ng/mL Normal [facility] Comment on above: Performed By: #### V ITAD ####[facility] Kwkshndbis[address] [place], [place] [address]Dr. Airam Tripathi VIT D RANGES SEE BELOW Normal [facility] Comment on above: Result Comment: <20 ng/mL Vit D deficient 20 - <30 ng/mL Vit D insufficient 30 - 100 ng/mL Vit D sufficient >100 ng/mL Potential Toxicity Performed By: #### V ITAD ####[facility] Reabfezgej314[address] [place], [place] [address]Dr. Airam Tripathi OSMOLALITYon 09-14-2022 Osmolality [Osmolality] 272 mosm/kg Critically low 275-295 [facility] Comment on above: Performed By: #### O SMO ####[facility] Affrkdmqdx178[address] [place], [place] [address]Dr. Airam Tripathi CBC AUTO DIFFon 09-12-2022 BASO # 0.0 103/ul Normal 0.0-0.1 [facility] Comment on above: Performed By: #### C BC ####[facility] Dpgrxdwdqz[address] [place], [place] [address]Dr. Airam Tripathi Basophils/100 WBC (Bld) 0.5 % Normal 0.2-2.0 [facility] Comment on above: Performed By: #### C BC ####[facility] Glzbdkmoco[address] [place], [place] [address]Dr. Airam Tripathi EO # 0.2 103/ul Normal 0.0-0.7 [facility] Comment on above: Performed By: #### C BC ####[facility] Azaoefkbvm325[address] [place], [place] [address]Dr. Selenaneil Tripathi Eosinophils/100 WBC (Bld) 2.4 % Normal 0.9-7.0 [facility] Comment on above: Performed By: #### C BC ####[facility] Iorujvgitz70[address] [place], [place] [address]Dr. Airam Tripathi Erythrocyte distribution width (RBC) [Ratio] 14.8 % Normal 11.0-15.0 [facility] Comment on above: Performed By: #### C BC ####[facility] Rnaevpdgsm664[address] [place], [place] [address]Dr. Selenaneil Deuce Hematocrit (Bld) [Volume fraction] 32.6 % Critically low 36.0-48.0 [facility] Comment on above: Performed By: #### C BC ####[facility] Ntimgwnuyp1215 [place] [id number]. Airam Tripathi Hemoglobin (Bld) [Mass/Vol] 10.1 g/dL Critically low 12.0-16.0 [facility] Comment on above: Performed By: #### C BC ####[facility] Yvkceyeunx4506 [place] [id number]. Airam Tripathi IG # 0.05 10e3/ul Critically high 0.00-0.03 [facility] Comment on above: Performed By: #### C BC ####[facility] Pdkmykmuua14[address] [place] [address]Dr. Airam Tripathi IG % 0.7 % Critically high 0.0-0.5 [facility] Comment on above: Performed By: #### C BC ####[facility] Yzghcgdubr0254 [place] [address]Dr. Airam Tripathi LYMPH # 1.9 103/ul Normal 1.2-3.8 [facility] Comment on above: Performed By: #### C BC ####[facility] Yoaekmxkak9068 [place] [address]Dr. Airam Triapthi Lymphocytes/100 WBC (Bld) 24.7 % Normal 20.5-60.0 [facility] Comment on above: Performed By: #### C BC ####[facility] Lwczmwokwv[address] [place] [address]Dr. Airam Tripathi MANUAL DIFF REQ NO Normal [facility] Comment on above: Performed By: #### C BC ####[facility] Yavsftkbny9588 [place] [address]Dr. Airam Tripathi MCH (RBC) [Entitic mass] 28.0 pg Normal 26.7-34.0 [facility] Comment on above: Performed By: #### C BC ####[facility] Kxafybkbsf8384 [place] [address]Dr. Airam Tripathi MCHC (RBC) [Mass/Vol] 31.0 g/dL Normal 29.9-35.2 [facility] Comment on above: Performed By: #### C BC ####[facility] Kwrehaugxa6117 [place] [phone]. Airam Tripathi MCV (RBC) [Entitic vol] 90.3 fL Normal 81.0-99.0 [facility] Comment on above: Performed By: #### C BC ####[facility] Onilyrjkpg5789 [place] [phone]. Airam Tripathi MONO # 0.5 103/ul Normal 0.3-0.8 [facility] Comment on above: Performed By: #### C BC ####[facility] Hlhgfbbdws5558 [place] [phone]. Airam Tripathi Monocytes/100 WBC (Bld) 6.0 % Normal 1.7-12.0 [facility] Comment on above: Performed By: #### C BC ####[facility] Ckihczokry0222 [place] [address]Dr. Airam Tripathi NEUT # 5.0 103/ul Normal 1.4-6.5 [facility] Comment on above: Performed By: #### C BC ####[facility] Joqyqaisfc4799 [place] [phone]. Airam Tripathi Neutrophils/100 WBC (Bld) 65.7 % Normal 43.0-75.0 [facility] Comment on above: Performed By: #### C BC ####[facility] Oeicjiepre7107 [place] [phone]. Airam Tripathi Platelet mean volume (Bld) [Entitic vol] 9.5 fL Normal 9.5-13.5 [facility] Comment on above: Performed By: #### C BC ####[facility] Leeeluethr2245 [place] [phone]. Airam Deuce PLT 307 103/ul Normal 150-450 [facility] Comment on above: Performed By: #### C BC ####[facility] Qtxueqrkti7007 [place] [phone]. Airam Deuce RBC 3.61 106/ul Critically low 4.20-5.40 [facility] Comment on above: Performed By: #### C BC ####[facility] Ojraiafnld357[address] [place], [place] [address]Dr. Airam Tripathi WBC 7.5 103/ul Normal 4.0-11.0 [facility] Comment on above: Performed By: #### C BC ####[facility] Rrlvjpkcfs0627 [place] [address]Dr. Airam Tripathi PROF 14(COMP METB)on 023 Albumin [Mass/Vol] 3.5 g/dL Normal 3.4-5.0 [facility] Comment on above: Performed By: #### C MP ####[facility] Mgrnbhmmch7283 [place] [address]Dr. Airam Tripathi Albumin/Globulin [Mass ratio] 1.1 {ratio} Normal [facility] Comment on above: Performed By: #### C MP ####[facility] Bmsqpafvbw6525 [place] [address]Dr. Airam Tripathi ALP [Catalytic activity/Vol] 126 U/L Critically high 46-116 [facility] Comment on above: Performed By: #### C MP ####[facility] Yrtdngkhyd9618[address] [place], [place] [address]Dr. Airam Tripathi ALT [Catalytic activity/Vol] 18 U/L Normal 14-59 [facility] Comment on above: Performed By: #### C MP ####[facility] Jeungqizxe8355 [place] [address]Dr. Airam Tripathi Anion gap [Moles/Vol] 11.1 mmol/L Normal [facility] Comment on above: Performed By: #### C MP ####[facility] Tqdhplrzvs432[address] [place], [place] [address]Dr. Airam Tripathi AST [Catalytic activity/Vol] 26 U/L Normal 15-37 [facility] Comment on above: Performed By: #### C MP ####[facility] Tsavduwtul387[address] [place], [place] [address]Dr. Airam Tripathi Bilirubin [Mass/Vol] 0.3 mg/dL Normal 0.2-1.0 [facility] Comment on above: Performed By: #### C MP ####[facility] Rxpppskufz747[address] [place], [place] [address]Dr. Airam Tripathi Calcium [Mass/Vol] 8.5 mg/dL Normal 8.5-10.1 [facility] Comment on above: Performed By: #### C MP ####[facility] Jgkxjzsufd757[address] [place], [place] [address]Dr. Airam Tripathi Chloride [Moles/Vol] 98 mmol/L Normal 98-107 [facility] Comment on above: Performed By: #### C MP ####[facility] Imxslnmkuf928[address] [place], [place] [address]Dr. Airam Tripathi CO2 [Moles/Vol] 23.9 mmol/L Normal 21.0-32.0 [facility] Comment on above: Performed By: #### C MP ####[facility] Xfownfpkhe360[address] [place], [place] [address]Dr. Airam Tripathi Creatinine [Mass/Vol] 1.40 mg/dL Critically high 0.55-1.02 [facility] Comment on above: Performed By: #### C MP ####[facility] Cniqhitfjc24[address] [place], [place] [address]Dr. Airam Tripathi EGFR-AF [place] 46 mL/min/1.73m2 Critically low >=60 [facility] Comment on above: Performed By: #### C MP ####[facility] Mnzrtcigrb[address] [place], [place] [address]Dr. Airam Tripathi EGFR-NON AF [place] 38 mL/min/1.73m2 Critically low >=60 [facility] Comment on above: Performed By: #### C MP ####[facility] Jhirterooc060[address] [place], [place] [address]Dr. Airam Tripathi Globulin (S) [Mass/Vol] 3.3 g/dL Normal [facility] Comment on above: Performed By: #### C MP ####[facility] Yqappujkbi410[address] [place], [place] [address]Dr. Airam Tripathi Glucose [Mass/Vol] 72 mg/dL Critically low 74-106 [facility] Comment on above: Performed By: #### C MP ####[facility] Oxgxpxqvto05360[address] [place], [place] [address]Dr. Airam Tripathi Potassium [Moles/Vol] 5.0 mmol/L Normal 3.5-5.1 [facility] Comment on above: Performed By: #### C MP ####[facility] Rpsrpsvigf569[address] [place], [place] [address]Dr. Airam Tripathi Protein [Mass/Vol] 6.8 g/dL Normal 6.4-8.2 [facility] Comment on above: Performed By: #### C MP ####[facility] Hlojykdiol666[address] [place], [place] [address]Dr. Airam Tripathi Sodium [Moles/Vol] 128 mmol/L Critically low 136-145 [facility] Comment on above: Performed By: #### C MP ####[facility] Jwcsvieiht419[address] [place], [place] [address]Dr. Selenaneil Tripathi Urea nitrogen [Mass/Vol] 27.0 mg/dL Critically high 7.0-18.0 [facility] Comment on above: Performed By: #### C MP ####[facility] Bmwxbhdisq80[address] [place], [place] [address]Dr. Airam Deuce Urea nitrogen/Creatinine [Mass ratio] 19.3 mg/mg Normal [facility] Comment on above: Performed By: #### C MP ####[facility] Ojofqvnfzx[address] [place], [place] [address]Dr. Airam Tripathi OSMOLALITYon 09-10-2022 Osmolality [Osmolality] 275 mosm/kg Normal 275-295 [facility] Comment on above: Performed By: #### O SMO ####[facility] Ilznhwuhht65[address] [place], [place] [address]Dr. Airam Deuce CBC AUTO DIFFon 09-08-2022 BASO # 0.0 103/ul Normal 0.0-0.1 [facility] Comment on above: Performed By: #### C BC ####[facility] Kobnfjizum[address] [place], [place] [address]Dr. Airam Deuce Basophils/100 WBC (Bld) 0.5 % Normal 0.2-2.0 [facility] Comment on above: Performed By: #### C BC ####[facility] Opnqhymfua4334 [place] [phone]. Airam Tripathi EO # 0.1 103/ul Normal 0.0-0.7 [facility] Comment on above: Performed By: #### C BC ####[facility] Cbjlneglfk9718 [place] [address]Dr. Airam Tripathi Eosinophils/100 WBC (Bld) 1.7 % Normal 0.9-7.0 [facility] Comment on above: Performed By: #### C BC ####[facility] Uetseurepv9344 [place] [address]Dr. Airam Tripathi Erythrocyte distribution width (RBC) [Ratio] 14.7 % Normal 11.0-15.0 [facility] Comment on above: Performed By: #### C BC ####[facility] Sgrofuuago[address] [place], [place] [address]Dr. Airam Tripathi Hematocrit (Bld) [Volume fraction] 30.3 % Critically low 36.0-48.0 [facility] Comment on above: Performed By: #### C BC ####[facility] Gstgvpgfpi5614 [place] [address]Dr. Airam Tripathi Hemoglobin (Bld) [Mass/Vol] 9.3 g/dL Critically low 12.0-16.0 [facility] Comment on above: Performed By: #### C BC ####[facility] Wrytlpnmhm3497 [place] [address]Dr. Airam Tripathi IG # 0.03 10e3/ul Normal 0.00-0.03 [facility] Comment on above: Performed By: #### C BC ####[facility] Vmxqkdztbg2037 [place] [address]Dr. Airam Tripathi IG % 0.5 % Normal 0.0-0.5 [facility] Comment on above: Performed By: #### C BC ####[facility] Zvsnuztyhb6108 [place] [address]Dr. Airam Tripathi LYMPH # 0.9 103/ul Critically low 1.2-3.8 [facility] Comment on above: Performed By: #### C BC ####[facility] Izrgzdrbri7646 [place] [phone]. Airam Tripathi Lymphocytes/100 WBC (Bld) 13.6 % Critically low 20.5-60.0 [facility] Comment on above: Performed By: #### C BC ####[facility] Apnxwiaawv5157 [place] [phone]. Airam Deuce MANUAL DIFF REQ NO Normal [facility] Comment on above: Performed By: #### C BC ####[facility] Dpaslaftpp7284 [place] [phone]. Airam Tripathi MCH (RBC) [Entitic mass] 27.4 pg Normal 26.7-34.0 [facility] Comment on above: Performed By: #### C BC ####[facility] Ccsdtgolqn2197 [place] [address]Dr. Airam Deuce MCHC (RBC) [Mass/Vol] 30.7 g/dL Normal 29.9-35.2 [facility] Comment on above: Performed By: #### C BC ####[facility] Izbzlafioy[address] [place], [place] [address]Dr. Airam Deuce MCV (RBC) [Entitic vol] 89.4 fL Normal 81.0-99.0 [facility] Comment on above: Performed By: #### C BC ####[facility] Vksiiidbkz998[address] [place], [place] [address]Dr. Selenaneil Deuce MONO # 0.5 103/ul Normal 0.3-0.8 [facility] Comment on above: Performed By: #### C BC ####[facility] Xhxnnyhhry823[address] [place], [place] [address]Dr. Airam Deuce Monocytes/100 WBC (Bld) 8.0 % Normal 1.7-12.0 [facility] Comment on above: Performed By: #### C BC ####[facility] Sxpcfhhsue124[address] [place], [place] [address]Dr. Selenaneil Deuce NEUT # 5.0 103/ul Normal 1.4-6.5 [facility] Comment on above: Performed By: #### C BC ####[facility] Dybjstdxgm3013 [place] [phone]. Airam Tripathi Neutrophils/100 WBC (Bld) 75.7 % Critically high 43.0-75.0 [facility] Comment on above: Performed By: #### C BC ####[facility] Unbisnzjrh5923 [place] [phone]. Airam Tripathi Platelet mean volume (Bld) [Entitic vol] 10.4 fL Normal 9.5-13.5 [facility] Comment on above: Performed By: #### C BC ####[facility] Xaqlvensua8640 [place] [phone]. Airam Tripathi PLT 315 103/ul Normal 150-450 [facility] Comment on above: Performed By: #### C BC ####[facility] Cfykhgmghq5855 [place] [phone]. Airam Tripathi RBC 3.39 106/ul Critically low 4.20-5.40 [facility] Comment on above: Performed By: #### C BC ####[facility] Tixefrcwwz6256 [place] [phone]. Airam Tripathi WBC 6.5 103/ul Normal 4.0-11.0 [facility] Comment on above: Performed By: #### C BC ####[facility] Ieagclmoub1580 [place] [address]Dr. Airam Tripathi PROF 14(COMP METB)on 023 Albumin [Mass/Vol] 3.1 g/dL Critically low 3.4-5.0 [facility] Comment on above: Performed By: #### C MP ####[facility] Adftrbawva4143 [place] [phone]. Airam Tripathi Albumin/Globulin [Mass ratio] 1.0 {ratio} Normal [facility] Comment on above: Performed By: #### C MP ####[facility] Zlhzahlynv1620 [place] [address]Dr. Selenaneil Tripathi ALP [Catalytic activity/Vol] 126 U/L Critically high 46-116 [facility] Comment on above: Performed By: #### C MP ####[facility] Dychgsgsql8224 [place] [phone]. Airam Tripathi ALT [Catalytic activity/Vol] 18 U/L Normal 14-59 [facility] Comment on above: Performed By: #### C MP ####[facility] Tlxuljrjtd7958 [place] [address]Dr. Airam Tripathi Anion gap [Moles/Vol] 11.4 mmol/L Normal [facility] Comment on above: Performed By: #### C MP ####[facility] Rdivzfbzdj7108 [place] [address]Dr. Airam Tripathi AST [Catalytic activity/Vol] 25 U/L Normal 15-37 [facility] Comment on above: Performed By: #### C MP ####[facility] Ftejqctkvw416[address] [place], [place] [address]Dr. Airam Tripathi Bilirubin [Mass/Vol] 0.3 mg/dL Normal 0.2-1.0 [facility] Comment on above: Performed By: #### C MP ####[facility] Gvtborbjak[address] [place], [place] [address]Dr. Airam Tripathi Calcium [Mass/Vol] 8.6 mg/dL Normal 8.5-10.1 [facility] Comment on above: Performed By: #### C MP ####[facility] Wfphbebrle658[address] [place], [place] [address]Dr. Airam Tripathi Chloride [Moles/Vol] 97 mmol/L Critically low 98-107 [facility] Comment on above: Performed By: #### C MP ####[facility] Ezpwxfkqyu5736 [place] [address]Dr. Airam Tripathi CO2 [Moles/Vol] 26.1 mmol/L Normal 21.0-32.0 [facility] Comment on above: Performed By: #### C MP ####[facility] Hffrnaodql946[address] [place], [place] [address]Dr. Airam Tripathi Creatinine [Mass/Vol] 1.07 mg/dL Critically high 0.55-1.02 [facility] Comment on above: Performed By: #### C MP ####[facility] Waulaxtysg6111 [place] [phone]. Airam Tripathi EGFR-AF [place] >60 Normal >=60 [facility] Comment on above: Performed By: #### C MP ####[facility] Kxlllbvztx2190 [place] [address]Dr. Airam Tripathi EGFR-NON AF [place] 52 mL/min/1.73m2 Critically low >=60 [facility] Comment on above: Performed By: #### C MP ####[facility] Sthhkfcuzy2405 [place] [address]Dr. Airam Tripathi Globulin (S) [Mass/Vol] 3.2 g/dL Normal [facility] Comment on above: Performed By: #### C MP ####[facility] Vyenpknhdp495[address] [place], [place] [address]Dr. Airam Tripathi Glucose [Mass/Vol] 83 mg/dL Normal 74-106 [facility] Comment on above: Performed By: #### C MP ####[facility] Xhuqpinujk0903 [place] [address]Dr. Airam Tripathi Potassium [Moles/Vol] 5.5 mmol/L Critically high 3.5-5.1 [facility] Comment on above: Performed By: #### C MP ####[facility] Kwuyzghexi317[address] [place], [place] [address]Dr. Airam Tripathi Protein [Mass/Vol] 6.3 g/dL Critically low 6.4-8.2 [facility] Comment on above: Performed By: #### C MP ####[facility] Ezgssqndwi80350[address] [place], [place] [address]Dr. Airam Rtipathi Sodium [Moles/Vol] 129 mmol/L Critically low 136-145 [facility] Comment on above: Performed By: #### C MP ####[facility] Eclpjkctbg979[address] [place], [place] [address]Dr. Airam Tripathi Urea nitrogen [Mass/Vol] 37.0 mg/dL Critically high 7.0-18.0 [facility] Comment on above: Performed By: #### C MP ####[facility] Qkilnytgem7238 [place] [address]Dr. Airam Tripathi Urea nitrogen/Creatinine [Mass ratio] 34.6 mg/mg Normal [facility] Comment on above: Performed By: #### C MP ####[facility] Zmnoelltdh[address] [place], [place] [address]Dr. Airam Tripathi OSMOLALITYon 09-02-2022 Osmolality [Osmolality] 279 mosm/kg Normal 275-295 [facility] Comment on above: Performed By: #### O SMO ####[facility] Tcothgefym998[address] [place], [place] [address]Dr. Airam Tripathi CBC AUTO DIFFon 08-31-2022 BASO # 0.0 103/ul Normal 0.0-0.1 [facility] Comment on above: Performed By: #### C BC ####[facility] Xbrzpsldxy067[address] [place], [place] [address]Dr. Airam Tripathi Basophils/100 WBC (Bld) 0.4 % Normal 0.2-2.0 [facility] Comment on above: Performed By: #### C BC ####[facility] Rauxecbosb277[address] [place], [place] [address]Dr. Airam Tripathi EO # 0.2 103/ul Normal 0.0-0.7 [facility] Comment on above: Performed By: #### C BC ####[facility] Stvdbbisgj113[address] [place], [place] [address]Dr. Airam Tripathi Eosinophils/100 WBC (Bld) 3.2 % Normal 0.9-7.0 [facility] Comment on above: Performed By: #### C BC ####[facility] Gjgedsytha60[address] [place], [place] [address]Dr. Airam Tripathi Erythrocyte distribution width (RBC) [Ratio] 14.4 % Normal 11.0-15.0 [facility] Comment on above: Performed By: #### C BC ####[facility] Lqyohfphnt487[address] [place], [place] [address]Dr. Airam Tripathi Hematocrit (Bld) [Volume fraction] 27.8 % Critically low 36.0-48.0 [facility] Comment on above: Performed By: #### C BC ####[facility] Pyzszfdxak6471 [place] [phone]. Airam Tripathi Hemoglobin (Bld) [Mass/Vol] 8.7 g/dL Critically low 12.0-16.0 [facility] Comment on above: Performed By: #### C BC ####[facility] Ixaosvllzg9383 [place] [address]Dr. Airam Tripathi IG # 0.05 10e3/ul Critically high 0.00-0.03 [facility] Comment on above: Performed By: #### C BC ####[facility] Ursgdaziyt607[address] [place], [place] [address]Dr. Airam Tripathi IG % 0.7 % Critically high 0.0-0.5 [facility] Comment on above: Performed By: #### C BC ####[facility] Pepnheaazc004[address] [place], [place] [address]Dr. Airam Tripathi LYMPH # 1.7 103/ul Normal 1.2-3.8 [facility] Comment on above: Performed By: #### C BC ####[facility] Gndswyulub847[address] [place], [place] [address]Dr. Airam Tripathi Lymphocytes/100 WBC (Bld) 23.6 % Normal 20.5-60.0 [facility] Comment on above: Performed By: #### C BC ####[facility] Rzckmfkori[address] [place], [place] [address]Dr. Airam Tripathi MANUAL DIFF REQ NO Normal [facility] Comment on above: Performed By: #### C BC ####[facility] Hmrnfkzpxf88[address] [place], [place] [address]Dr. Airam Tripathi MCH (RBC) [Entitic mass] 27.8 pg Normal 26.7-34.0 [facility] Comment on above: Performed By: #### C BC ####[facility] Ppqxebvkqt68350[address] [place], [place] [address]Dr. Airam Tripathi MCHC (RBC) [Mass/Vol] 31.3 g/dL Normal 29.9-35.2 [facility] Comment on above: Performed By: #### C BC ####[facility] Faqpdodrlz9731 [place] [phone]. Airam Tripathi MCV (RBC) [Entitic vol] 88.8 fL Normal 81.0-99.0 [facility] Comment on above: Performed By: #### C BC ####[facility] Dwkqwcafwz1195 [place] [phone]. Airam Tripathi MONO # 0.5 103/ul Normal 0.3-0.8 [facility] Comment on above: Performed By: #### C BC ####[facility] Vioagnpovb0890 [place] [phone]. Airam Tripathi Monocytes/100 WBC (Bld) 6.9 % Normal 1.7-12.0 [facility] Comment on above: Performed By: #### C BC ####[facility] Ooskzhfobx199[address] [place], [place] [address]Dr. Airam Tripathi NEUT # 4.7 103/ul Normal 1.4-6.5 [facility] Comment on above: Performed By: #### C BC ####[facility] Irdvnoslcr[address] [place], [place] [id number]. Airam Tripathi Neutrophils/100 WBC (Bld) 65.2 % Normal 43.0-75.0 [facility] Comment on above: Performed By: #### C BC ####[facility] Rvuhdkratc[address] [place], [place] [id number]. Airam Tripathi Platelet mean volume (Bld) [Entitic vol] 9.8 fL Normal 9.5-13.5 [facility] Comment on above: Performed By: #### C BC ####[facility] Zgdgvwmqfv3365 [place] [phone]. Airam Tripathi PLT 225 103/ul Normal 150-450 [facility] Comment on above: Performed By: #### C BC ####[facility] Nxihqeqfmi[address] [place], [place] [id number]. Airam Tripathi RBC 3.13 106/ul Critically low 4.20-5.40 [facility] Comment on above: Performed By: #### C BC ####[facility] Pysibapmtq3403 [place] [address]Dr. Airam Tripathi WBC 7.3 103/ul Normal 4.0-11.0 [facility] Comment on above: Performed By: #### C BC ####[facility] Jihdjhnngn[address] [place], [place] [address]Dr. Airam Tripathi PROF 14(COMP METB)on 023 Albumin [Mass/Vol] 3.0 g/dL Critically low 3.4-5.0 [facility] Comment on above: Performed By: #### C MP ####[facility] Mwttyxupvw1330 [address] [place] [address]Dr. Airam Tripathi Albumin/Globulin [Mass ratio] 1.1 {ratio} Normal [facility] Comment on above: Performed By: #### C MP ####[facility] Wecjmrwtyy[address] [place], [place] [address]Dr. Airam Tripathi ALP [Catalytic activity/Vol] 132 U/L Critically high 46-116 [facility] Comment on above: Performed By: #### C MP ####[facility] Bqftjsmpdb910[address] [place], [place] [address]Dr. Airam rTipathi ALT [Catalytic activity/Vol] 20 U/L Normal 14-59 [facility] Comment on above: Performed By: #### C MP ####[facility] Evhgvwyrrs946[address] [place], [place] [address]Dr. Airam Tripathi Anion gap [Moles/Vol] 9.5 mmol/L Normal [facility] Comment on above: Performed By: #### C MP ####[facility] Wlyfbhcxhj212[address] [place], [place] [address]Dr. Airam Tripathi AST [Catalytic activity/Vol] 25 U/L Normal 15-37 [facility] Comment on above: Performed By: #### C MP ####[facility] Opupfrzdax[address] [place], [place] [address]Dr. Airam Tripathi Bilirubin [Mass/Vol] 0.2 mg/dL Normal 0.2-1.0 [facility] Comment on above: Performed By: #### C MP ####[facility] Hooibitpml3094 [place] [id number]. Airam Tripathi Calcium [Mass/Vol] 7.9 mg/dL Critically low 8.5-10.1 [facility] Comment on above: Performed By: #### C MP ####[facility] Zrfiouurra3812 [place] [phone]. Airam Tripathi Chloride [Moles/Vol] 97 mmol/L Critically low 98-107 [facility] Comment on above: Performed By: #### C MP ####[facility] Loqjqhrnza334[address] [place], [place] [address]Dr. Airam Tripathi CO2 [Moles/Vol] 27.3 mmol/L Normal 21.0-32.0 [facility] Comment on above: Performed By: #### C MP ####[facility] Ssqvtvfacu874[address] [place], [place] [address]Dr. Airam Deuce Creatinine [Mass/Vol] 1.58 mg/dL Critically high 0.55-1.02 [facility] Comment on above: Performed By: #### C MP ####[facility] Ztjfppnamv[address] [place], [place] [id number]. Airam Deuce EGFR-AF [place] 40 mL/min/1.73m2 Critically low >=60 [facility] Comment on above: Performed By: #### C MP ####[facility] Bgtmfmizkr256[address] [place], [place] [address]Dr. Airam Deuce EGFR-NON AF [place] 33 mL/min/1.73m2 Critically low >=60 [facility] Comment on above: Performed By: #### C MP ####[facility] Ycluoyaekx[address] [place], [place] [id number]. Airam Deuce Globulin (S) [Mass/Vol] 2.8 g/dL Normal [facility] Comment on above: Performed By: #### C MP ####[facility] Sftlhfrrhk014[address] [place], [place] [address]Dr. Airam Deuce Glucose [Mass/Vol] 111 mg/dL Critically high 74-106 [facility] Comment on above: Performed By: #### C MP ####[facility] Zmpjraspfh9017 [place] [address]Dr. Airam Tripathi Potassium [Moles/Vol] 4.8 mmol/L Normal 3.5-5.1 [facility] Comment on above: Performed By: #### C MP ####[facility] Uufezefwgm7399 [place] [address]Dr. Airam Tripathi Protein [Mass/Vol] 5.8 g/dL Critically low 6.4-8.2 [facility] Comment on above: Performed By: #### C MP ####[facility] Mlguolzaan246[address] [place], [place] [address]Dr. Airam Tripathi Sodium [Moles/Vol] 129 mmol/L Critically low 136-145 [facility] Comment on above: Performed By: #### C MP ####[facility] Xfnqxuaypl016[address] [place], [place] [address]Dr. Airam Tripathi Urea nitrogen [Mass/Vol] 44.0 mg/dL Critically high 7.0-18.0 [facility] Comment on above: Performed By: #### C MP ####[facility] Bvongvzuny17450[address] [place], [place] [address]Dr. Airam Tripathi Urea nitrogen/Creatinine [Mass ratio] 27.8 mg/mg Normal [facility] Comment on above: Performed By: #### C MP ####[facility] Ypryrdxdpj4499[address] [place], [place] [address]Dr. Airam Tripathi OSMOLALITYon 08-28-2022 Osmolality [Osmolality] 288 mosm/kg Normal 275-295 [facility] Comment on above: Performed By: #### O SMO ####[facility] Orabprpaab635[address] [place], [place] [address]Dr. Airam Tripathi CBC AUTO DIFFon 08-25-2022 BASO # 0.0 103/ul Normal 0.0-0.1 [facility] Comment on above: Performed By: #### C BC ####[facility] Zvhegfgdoe867[address] [place], [place] [address]Dr. Airam Tripathi Basophils/100 WBC (Bld) 0.5 % Normal 0.2-2.0 [facility] Comment on above: Performed By: #### C BC ####[facility] Ealdlmcieb9196 [place] [phone]. Airam Tripathi EO # 0.4 103/ul Normal 0.0-0.7 [facility] Comment on above: Performed By: #### C BC ####[facility] Glrkcuqbnz7419 [place] [address]Dr. Airam Tripathi Eosinophils/100 WBC (Bld) 4.8 % Normal 0.9-7.0 [facility] Comment on above: Performed By: #### C BC ####[facility] Sbbuznbtvb349[address] [place], [place] [address]Dr. Airam Tripathi Erythrocyte distribution width (RBC) [Ratio] 14.2 % Normal 11.0-15.0 [facility] Comment on above: Performed By: #### C BC ####[facility] Ltevhmvkaj936[address] [place], [place] [address]Dr. Airam Tripathi Hematocrit (Bld) [Volume fraction] 31.1 % Critically low 36.0-48.0 [facility] Comment on above: Performed By: #### C BC ####[facility] Rwbuzlizdy278[address] [place], [place] [address]Dr. Airam Tripathi Hemoglobin (Bld) [Mass/Vol] 9.7 g/dL Critically low 12.0-16.0 [facility] Comment on above: Performed By: #### C BC ####[facility] Uhntzivliy284[address] [place], [place] [address]Dr. Airam Tripathi IG # 0.05 10e3/ul Critically high 0.00-0.03 [facility] Comment on above: Performed By: #### C BC ####[facility] Pzdbazdahb20[address] [place], [place] [address]Dr. Airam Tripathi IG % 0.6 % Critically high 0.0-0.5 [facility] Comment on above: Performed By: #### C BC ####[facility] Vfikmmbnwn036[address] [place], [place] [address]Dr. Airam Tripathi LYMPH # 1.7 103/ul Normal 1.2-3.8 [facility] Comment on above: Performed By: #### C BC ####[facility] Qpinbbdsvk0061 [place] [phone]. Airam Deuce Lymphocytes/100 WBC (Bld) 19.6 % Critically low 20.5-60.0 [facility] Comment on above: Performed By: #### C BC ####[facility] Usdjxyrrof2128 [place] [address]Dr. Airam Tripathi MANUAL DIFF REQ NO Normal [facility] Comment on above: Performed By: #### C BC ####[facility] Wjhxnxmuvq8068 [place] [phone]. Selenaneil Tripathi MCH (RBC) [Entitic mass] 28.2 pg Normal 26.7-34.0 [facility] Comment on above: Performed By: #### C BC ####[facility] Cxmvoatqjw6812[address] [place], [place] [address]Dr. Airam Tripathi MCHC (RBC) [Mass/Vol] 31.2 g/dL Normal 29.9-35.2 [facility] Comment on above: Performed By: #### C BC ####[facility] Gjdmhdvokf658[address] [place], [place] [address]Dr. Selenaneil Tripathi MCV (RBC) [Entitic vol] 90.4 fL Normal 81.0-99.0 [facility] Comment on above: Performed By: #### C BC ####[facility] Bedyobqcjz956[address] [place], [place] [address]Dr. Airam Tripathi MONO # 0.6 103/ul Normal 0.3-0.8 [facility] Comment on above: Performed By: #### C BC ####[facility] Oiqkuzmcbw37[address] [place], [place] [address]Dr. Airam Tripathi Monocytes/100 WBC (Bld) 7.4 % Normal 1.7-12.0 [facility] Comment on above: Performed By: #### C BC ####[facility] Qwsxdbqauw818[address] [place], [place] [address]Dr. Airam Tripathi NEUT # 5.8 103/ul Normal 1.4-6.5 [facility] Comment on above: Performed By: #### C BC ####[facility] Sjmnqmhgoy5911 [place] [address]Dr. Airam Tripathi Neutrophils/100 WBC (Bld) 67.1 % Normal 43.0-75.0 [facility] Comment on above: Performed By: #### C BC ####[facility] Xmaodxsohs0187 [place] [phone]. Selenaneil Tripathi Platelet mean volume (Bld) [Entitic vol] 9.9 fL Normal 9.5-13.5 [facility] Comment on above: Performed By: #### C BC ####[facility] Hcmtqurngd4866 [place] [address]Dr. Airam Tripathi PLT 320 103/ul Normal 150-450 [facility] Comment on above: Performed By: #### C BC ####[facility] Cqplxaqhie0845 [place] [address]Dr. Airam Tripathi RBC 3.44 106/ul Critically low 4.20-5.40 [facility] Comment on above: Performed By: #### C BC ####[facility] Tgwyddeozm19[address] [place], [place] [address]Dr. Airam Tripathi WBC 8.6 103/ul Normal 4.0-11.0 [facility] Comment on above: Performed By: #### C BC ####[facility] Rtfkchbifu[address] [place], [place] [address]Dr. Airam Tripathi PROF 14(COMP METB)on 023 Albumin [Mass/Vol] 3.4 g/dL Normal 3.4-5.0 [facility] Comment on above: Performed By: #### C MP ####[facility] Zypydbztwi656[address] [place], [place] [address]Dr. Airam Tripathi Albumin/Globulin [Mass ratio] 1.1 {ratio} Normal [facility] Comment on above: Performed By: #### C MP ####[facility] Xegnqbbbdg0566 [place] [address]Dr. Airam Tripathi ALP [Catalytic activity/Vol] 170 U/L Critically high 46-116 [facility] Comment on above: Performed By: #### C MP ####[facility] Htrvbhimyl5033 [place] [phone]. Airam Tripathi ALT [Catalytic activity/Vol] 22 U/L Normal 14-59 [facility] Comment on above: Performed By: #### C MP ####[facility] Kuvrsfwhac4138 [place] [phone]. Airam Tripathi Anion gap [Moles/Vol] 14.4 mmol/L Normal [facility] Comment on above: Performed By: #### C MP ####[facility] Xliokbbeos4421 [place] [phone]. Airam Tripathi AST [Catalytic activity/Vol] 25 U/L Normal 15-37 [facility] Comment on above: Performed By: #### C MP ####[facility] Unvvvgerei36[address] [place], [place] [address]Dr. Airam Tripathi Bilirubin [Mass/Vol] 0.3 mg/dL Normal 0.2-1.0 [facility] Comment on above: Performed By: #### C MP ####[facility] Byulncvuzc3399 [place] [phone]. Airam Tripathi Calcium [Mass/Vol] 8.2 mg/dL Critically low 8.5-10.1 [facility] Comment on above: Performed By: #### C MP ####[facility] Splombimmk2328 [place] [address]Dr. Airam Tripathi Chloride [Moles/Vol] 98 mmol/L Normal 98-107 [facility] Comment on above: Performed By: #### C MP ####[facility] Vlcjyotaxv8823 [place] [phone]. Airam Tripathi CO2 [Moles/Vol] 27.8 mmol/L Normal 21.0-32.0 [facility] Comment on above: Performed By: #### C MP ####[facility] Fghqcaujrt[address] [place], [place] [id number]. Airam Tripathi Creatinine [Mass/Vol] 1.82 mg/dL Critically high 0.55-1.02 [facility] Comment on above: Performed By: #### C MP ####[facility] Ngkbebamqs8568 [place] [phone]. Airam Tripathi EGFR-AF [place] 34 mL/min/1.73m2 Critically low >=60 [facility] Comment on above: Performed By: #### C MP ####[facility] Jvsojexiay9960 [place] [phone]. Airam Tripathi EGFR-NON AF [place] 28 mL/min/1.73m2 Critically low >=60 [facility] Comment on above: Performed By: #### C MP ####[facility] Ncnckaujhz0256 [place] [phone]. Airam Tripathi Globulin (S) [Mass/Vol] 3.2 g/dL Normal [facility] Comment on above: Performed By: #### C MP ####[facility] Qoukdppwlb3038 [place] [address]Dr. Selenaneil Tripathi Glucose [Mass/Vol] 78 mg/dL Normal 74-106 [facility] Comment on above: Performed By: #### C MP ####[facility] Pjqscrtgoj9740 [place] [address]Dr. Airam Tripathi Potassium [Moles/Vol] 5.2 mmol/L Critically high 3.5-5.1 [facility] Comment on above: Performed By: #### C MP ####[facility] Hosqsawwfa0524 [place] [address]Dr. Selenaneil Deuce Protein [Mass/Vol] 6.6 g/dL Normal 6.4-8.2 [facility] Comment on above: Performed By: #### C MP ####[facility] Ggodnboled0408 [place] [address]Dr. Airam Tripathi Sodium [Moles/Vol] 135 mmol/L Critically low 136-145 [facility] Comment on above: Performed By: #### C MP ####[facility] Cbgaucgtdt1466 [place] [address]Dr. Airam Tripathi Urea nitrogen [Mass/Vol] 51.0 mg/dL Critically high 7.0-18.0 [facility] Comment on above: Performed By: #### C MP ####[facility] Jkodieerhh4090 [place] [address]Dr. Airam Tripathi Urea nitrogen/Creatinine [Mass ratio] 28.0 mg/mg Normal [facility] Comment on above: Performed By: #### C MP ####[facility] Ibshshoejt724[address] [place], [place] [address]Dr. Airam Tripathi OSMOLALITYon 08-18-2022 Osmolality [Osmolality] 280 mosm/kg Normal 275-295 [facility] Comment on above: Performed By: #### O SMO ####[facility] Exnxeyggos822[address] [place], [place] [address]Dr. Airam Deuce CBC AUTO DIFFon 08-16-2022 BASO # 0.0 103/ul Normal 0.0-0.1 [facility] Comment on above: Performed By: #### C BC ####[facility] Ylqubzwkrl480[address] [place], [place] [address]Dr. Airam Tripathi Basophils/100 WBC (Bld) 0.2 % Normal 0.2-2.0 [facility] Comment on above: Performed By: #### C BC ####[facility] Qgjcyfkqbh038[address] [place], [place] [address]Dr. Selenaneil Tripathi EO # 0.2 103/ul Normal 0.0-0.7 [facility] Comment on above: Performed By: #### C BC ####[facility] Vstklazxka700[address] [place], [place] [address]Dr. Airam Tripathi Eosinophils/100 WBC (Bld) 2.4 % Normal 0.9-7.0 [facility] Comment on above: Performed By: #### C BC ####[facility] Jsqxhjyuay488[address] [place], [place] [address]Dr. Selenaneil Tripathi Erythrocyte distribution width (RBC) [Ratio] 14.2 % Normal 11.0-15.0 [facility] Comment on above: Performed By: #### C BC ####[facility] Cphutygokq716[address] [place], [place] [address]Dr. Airam Tripathi Hematocrit (Bld) [Volume fraction] 30.1 % Critically low 36.0-48.0 [facility] Comment on above: Performed By: #### C BC ####[facility] Kxcibpglap2619 [place] [address]Dr. Airam Tripathi Hemoglobin (Bld) [Mass/Vol] 9.2 g/dL Critically low 12.0-16.0 [facility] Comment on above: Performed By: #### C BC ####[facility] Ytzcpzupsj4693 [place] [address]Dr. Airam Tripathi IG # 0.04 10e3/ul Critically high 0.00-0.03 [facility] Comment on above: Performed By: #### C BC ####[facility] Jawjeudqto915[address] [place], [place] [address]Dr. Airam Tripathi IG % 0.4 % Normal 0.0-0.5 [facility] Comment on above: Performed By: #### C BC ####[facility] Pejkucenpp623[address] [place], [place] [address]Dr. Airam Tripathi LYMPH # 0.9 103/ul Critically low 1.2-3.8 [facility] Comment on above: Performed By: #### C BC ####[facility] Nphsrrhrwf59[address] [place], [place] [address]Dr. Airam Tripathi Lymphocytes/100 WBC (Bld) 9.3 % Critically low 20.5-60.0 [facility] Comment on above: Performed By: #### C BC ####[facility] Nfynpcrgub008[address] [place], [place] [address]Dr. Airam Tripathi MANUAL DIFF REQ NO Normal [facility] Comment on above: Performed By: #### C BC ####[facility] Ziahhkherq447[address] [place], [place] [address]Dr. Airam Tripathi MCH (RBC) [Entitic mass] 27.7 pg Normal 26.7-34.0 [facility] Comment on above: Performed By: #### C BC ####[facility] Irrgdidhmp366[address] [place], [place] [address]Dr. Airam Tripathi MCHC (RBC) [Mass/Vol] 30.6 g/dL Normal 29.9-35.2 [facility] Comment on above: Performed By: #### C BC ####[facility] Fnsofsmhdr4217 [place] [phone]. Airam Tripathi MCV (RBC) [Entitic vol] 90.7 fL Normal 81.0-99.0 [facility] Comment on above: Performed By: #### C BC ####[facility] Dtkretcozu3779 [place] [phone]. Airam Tripathi MONO # 0.5 103/ul Normal 0.3-0.8 [facility] Comment on above: Performed By: #### C BC ####[facility] Fosjwdclmp4741 [place] [phone]. Airam Deuce Monocytes/100 WBC (Bld) 5.3 % Normal 1.7-12.0 [facility] Comment on above: Performed By: #### C BC ####[facility] Sncwzfrroo6[address] [place], [place] [address]Dr. Airam Tripathi NEUT # 7.7 103/ul Critically high 1.4-6.5 [facility] Comment on above: Performed By: #### C BC ####[facility] Ijafqdqsqv9[address] [place], [place] [id number]. Airam Deuce Neutrophils/100 WBC (Bld) 82.4 % Critically high 43.0-75.0 [facility] Comment on above: Performed By: #### C BC ####[facility] Kyfkqsqhtt[address] [place], [place] [id number]. Airam Deuce Platelet mean volume (Bld) [Entitic vol] 9.8 fL Normal 9.5-13.5 [facility] Comment on above: Performed By: #### C BC ####[facility] Ujutvfzpbo0[address] [place], [place] [id number]. Airam Deuce PLT 285 103/ul Normal 150-450 [facility] Comment on above: Performed By: #### C BC ####[facility] Fsjzzssmsx9376 [place] [phone]. Airam Tripathi RBC 3.32 106/ul Critically low 4.20-5.40 [facility] Comment on above: Performed By: #### C BC ####[facility] Lceibelpjp1878 [place] [address]Dr. Airam Tripathi WBC 9.4 103/ul Normal 4.0-11.0 [facility] Comment on above: Performed By: #### C BC ####[facility] Xzxwtvwgfg6749 [place] [address]Dr. Airam Tripathi MRI WRIST RT WO CONon 2022 MRI WRIST RT WO CON Normal [facility] PROF 14(COMP METB)on 023 Albumin [Mass/Vol] 3.1 g/dL Critically low 3.4-5.0 [facility] Comment on above: Performed By: #### C MP ####[facility] Okoayymkyz[address] [place], [place] [address]Dr. Airam Tripathi Albumin/Globulin [Mass ratio] 0.9 {ratio} Normal [facility] Comment on above: Performed By: #### C MP ####[facility] Jdycnecrti138[address] [place], [place] [address]Dr. Airam Tripathi ALP [Catalytic activity/Vol] 162 U/L Critically high 46-116 [facility] Comment on above: Performed By: #### C MP ####[facility] Gqxszdofkh9039[address] [place], [place] [address]Dr. Airam Tripathi ALT [Catalytic activity/Vol] 19 U/L Normal 14-59 [facility] Comment on above: Performed By: #### C MP ####[facility] Wvhvflkkch465[address] [place], [place] [address]Dr. Airam Tripathi Anion gap [Moles/Vol] 13.0 mmol/L Normal [facility] Comment on above: Performed By: #### C MP ####[facility] Wuxtomdhro424[address] [place], [place] [address]Dr. Airam Tripathi AST [Catalytic activity/Vol] 21 U/L Normal 15-37 [facility] Comment on above: Performed By: #### C MP ####[facility] Jdmwpydpsh839[address] [place], [place] [address]Dr. Airam Tripathi Bilirubin [Mass/Vol] 0.3 mg/dL Normal 0.2-1.0 [facility] Comment on above: Performed By: #### C MP ####[facility] Xkkocejlaw7365 [place] [address]Dr. Airam Deuce Calcium [Mass/Vol] 8.4 mg/dL Critically low 8.5-10.1 [facility] Comment on above: Performed By: #### C MP ####[facility] Fieabqvcnc8512[address] [place], [place] [address]Dr. Selenaneil Deuce Chloride [Moles/Vol] 103 mmol/L Normal 98-107 [facility] Comment on above: Performed By: #### C MP ####[facility] Qrgirlaydx8614[address] [place], [place] [address]Dr. Airam Deuce CO2 [Moles/Vol] 23.3 mmol/L Normal 21.0-32.0 [facility] Comment on above: Performed By: #### C MP ####[facility] Hxtaixtlra642[address] [place], [place] [address]Dr. Airam Deuce Creatinine [Mass/Vol] 1.02 mg/dL Normal 0.55-1.02 [facility] Comment on above: Performed By: #### C MP ####[facility] Gcuwbtdjat268[address] [place], [place] [address]Dr. Airam Deuce EGFR-AF [place] >60 Normal >=60 [facility] Comment on above: Performed By: #### C MP ####[facility] Nifyxogmgo673[address] [place], [place] [address]Dr. Airam Tripathi EGFR-NON AF [place] 55 mL/min/1.73m2 Critically low >=60 [facility] Comment on above: Performed By: #### C MP ####[facility] Ccyqbbyfak46[address] [place], [place] [address]Dr. Airam Tripathi Globulin (S) [Mass/Vol] 3.4 g/dL Normal [facility] Comment on above: Performed By: #### C MP ####[facility] Regzzxwlyc327[address] [place], [place] [address]Dr. Airam Tripathi Glucose [Mass/Vol] 88 mg/dL Normal 74-106 [facility] Comment on above: Performed By: #### C MP ####[facility] Wsslxjxyju5051 [place] [address]Dr. Selenaneil Deuce Potassium [Moles/Vol] 4.3 mmol/L Normal 3.5-5.1 [facility] Comment on above: Performed By: #### C MP ####[facility] Cheyatgqaq2526 [place] [address]Dr. Airam Tripathi Protein [Mass/Vol] 6.5 g/dL Normal 6.4-8.2 [facility] Comment on above: Performed By: #### C MP ####[facility] Qzhagckaiu6370 [place] [address]Dr. Airam Tripathi Sodium [Moles/Vol] 135 mmol/L Critically low 136-145 [facility] Comment on above: Performed By: #### C MP ####[facility] Prwueofdko9869 [place] [address]Dr. Airam Tripathi Urea nitrogen [Mass/Vol] 27.0 mg/dL Critically high 7.0-18.0 [facility] Comment on above: Performed By: #### C MP ####[facility] Uyedwegzhy265[address] [place], [place] [address]Dr. Selenaneil Deuce Urea nitrogen/Creatinine [Mass ratio] 26.5 mg/mg Normal [facility] Comment on above: Performed By: #### C MP ####[facility] Iyydkellfj812[address] [place], [place] [address]Dr. Airam Tripathi CT HEAD WO CONon 08-06-2022 CT HEAD WO CON Normal [facility] CT LSPINE WO CONon 3 CT LSPINE WO CON Normal [facility] XR HAND RT MIN 3Von 08-06-19 23 XR HAND RT MIN 3V Normal [facility] XR KNEE LT 4V or >on 023 XR KNEE LT 4V or > Normal [facility] XR WRIST RT MIN 3 Von 2022 XR WRIST RT MIN 3 V Normal [facility] OSMOLALITYon 08-05-2022 Osmolality [Osmolality] 282 mosm/kg Normal 275-295 [facility] Comment on above: Performed By: #### O SMO ####[facility] Zdhznqzvif8690 [place] [address]Dr. Airam Tripathi CBC AUTO DIFFon 08-03-2022 BASO # 0.0 103/ul Normal 0.0-0.1 [facility] Comment on above: Performed By: #### C BC ####[facility] Ehzogleshj9[address] [place], [place] [address]DrKianna Tripathi Basophils/100 WBC (Bld) 0.5 % Normal 0.2-2.0 [facility] Comment on above: Performed By: #### C BC ####[facility] Wgtqgneeou[address] [place], [place] [address]DrKianna Tripathi EO # 0.5 103/ul Normal 0.0-0.7 [facility] Comment on above: Performed By: #### C BC ####[facility] Usxkuwettn249[address] [place], [place] [address]DrKianna Tripathi Eosinophils/100 WBC (Bld) 5.2 % Normal 0.9-7.0 [facility] Comment on above: Performed By: #### C BC ####[facility] Ssoestwjsp[address] [place], [place] [address]DrKianna Tripathi Erythrocyte distribution width (RBC) [Ratio] 14.3 % Normal 11.0-15.0 [facility] Comment on above: Performed By: #### C BC ####[facility] Ajnjqedoyb[address] [place], [place] [address]DrKianna Tripathi Hematocrit (Bld) [Volume fraction] 31.4 % Critically low 36.0-48.0 [facility] Comment on above: Performed By: #### C BC ####[facility] Eueklxnbao[address] [place], [place] [address]DrKianna Tripathi Hemoglobin (Bld) [Mass/Vol] 9.5 g/dL Critically low 12.0-16.0 [facility] Comment on above: Performed By: #### C BC ####[facility] Rszvwqpndd[address] [place], [place] [address]DrKianna Tripathi IG # 0.05 10e3/ul Critically high 0.00-0.03 [facility] Comment on above: Performed By: #### C BC ####[facility] [address]cfqvv32[address] [place] [address]DrKianna Tripathi IG % 0.6 % Critically high 0.0-0.5 [facility] Comment on above: Performed By: #### C BC ####[facility] Uyfvwxlghh8721 [place] [address]DrKianna Tripathi LYMPH # 1.5 103/ul Normal 1.2-3.8 [facility] Comment on above: Performed By: #### C BC ####[facility] Fhnjowjvkq7149 [place] [address]DrKianna Tripathi Lymphocytes/100 WBC (Bld) 17.6 % Critically low 20.5-60.0 [facility] Comment on above: Performed By: #### C BC ####[facility] Xeqpbtymrg[address] [place], [place] [address]DrKianna Tripathi MANUAL DIFF REQ NO Normal [facility] Comment on above: Performed By: #### C BC ####[facility] Lwkyfxxhvh824[address] [place], [place] [address]DrKianna Tripathi MCH (RBC) [Entitic mass] 29.0 pg Normal 26.7-34.0 [facility] Comment on above: Performed By: #### C BC ####[facility] Emwihvjiab514[address] [place], [place] [address]DrKianna Tripathi MCHC (RBC) [Mass/Vol] 30.3 g/dL Normal 29.9-35.2 [facility] Comment on above: Performed By: #### C BC ####[facility] Djsqdldpdy[address] [place], [place] [address]DrKianna Tripathi MCV (RBC) [Entitic vol] 95.7 fL Normal 81.0-99.0 [facility] Comment on above: Performed By: #### C BC ####[facility] Bmgpgzlqni570[address] [place], [place] [address]DrKianna Tripathi MONO # 0.7 103/ul Normal 0.3-0.8 [facility] Comment on above: Performed By: #### C BC ####[facility] Lytborfztx7869 [place] [address]DrKianna Tripathi Monocytes/100 WBC (Bld) 8.5 % Normal 1.7-12.0 [facility] Comment on above: Performed By: #### C BC ####[facility] Jirhwmbgsv297[address] [place], [place] [address]DrKianna Tripathi NEUT # 5.8 103/ul Normal 1.4-6.5 [facility] Comment on above: Performed By: #### C BC ####[facility] Tiduhwrqbi1056 [place] [address]DrKianna Airam Tripatih Neutrophils/100 WBC (Bld) 67.6 % Normal 43.0-75.0 [facility] Comment on above: Performed By: #### C BC ####[facility] Ghrudyxigy965[address] [place], [place] [address]DrKianna Airam Tripathi Platelet mean volume (Bld) [Entitic vol] 9.5 fL Normal 9.5-13.5 [facility] Comment on above: Performed By: #### C BC ####[facility] Apeyewtaih[address] [place], [place] [address]DrKianna Airam Tripathi PLT 292 103/ul Normal 150-450 [facility] Comment on above: Performed By: #### C BC ####[facility] Vwauxukine[address] [place], [place] [id number] Airam Tripathi RBC 3.28 106/ul Critically low 4.20-5.40 [facility] Comment on above: Performed By: #### C BC ####[facility] Cqkzlfrhui56[address] [place], [place] [address]DrKianna Airam Tripathi WBC 8.6 103/ul Normal 4.0-11.0 [facility] Comment on above: Performed By: #### C BC ####[facility] Dopomipkkd508[address] [place], [place] [address]DrKianna Tripathi PROF 14(COMP METB)on 023 Albumin [Mass/Vol] 3.0 g/dL Critically low 3.4-5.0 [facility] Comment on above: Performed By: #### C MP ####[facility] Nttulsyzdm5862 [place] [address]Dr. Selenaneil Deuce Albumin/Globulin [Mass ratio] 0.9 {ratio} Normal [facility] Comment on above: Performed By: #### C MP ####[facility] Ctmbzhqwmr4796 [place] [address]Dr. Airam Tripathi ALP [Catalytic activity/Vol] 184 U/L Critically high 46-116 [facility] Comment on above: Performed By: #### C MP ####[facility] Plfunngkmi033[address] [place], [place] [address]Dr. Airam Tripathi ALT [Catalytic activity/Vol] 18 U/L Normal 14-59 [facility] Comment on above: Performed By: #### C MP ####[facility] Vqtakultuk378[address] [place], [place] [address]Dr. Airam Tripathi Anion gap [Moles/Vol] 11.2 mmol/L Normal [facility] Comment on above: Performed By: #### C MP ####[facility] Znhkwowpxy55300[address] [place], [place] [address]Dr. Airam Tripathi AST [Catalytic activity/Vol] 19 U/L Normal 15-37 [facility] Comment on above: Performed By: #### C MP ####[facility] Pqlhyzybcf814[address] [place], [place] [address]Dr. Airam Tripathi Bilirubin [Mass/Vol] 0.3 mg/dL Normal 0.2-1.0 [facility] Comment on above: Performed By: #### C MP ####[facility] Wnrwwjyyne089[address] [place], [place] [address]Dr. Airam Tripathi Calcium [Mass/Vol] 8.8 mg/dL Normal 8.5-10.1 [facility] Comment on above: Performed By: #### C MP ####[facility] Ctewuliefi054[address] [place], [place] [address]Dr. Airam Tripathi Chloride [Moles/Vol] 101 mmol/L Normal 98-107 [facility] Comment on above: Performed By: #### C MP ####[facility] Txunxpskzp4960 [place] [address]Dr. Airam Tripathi CO2 [Moles/Vol] 25.4 mmol/L Normal 21.0-32.0 [facility] Comment on above: Performed By: #### C MP ####[facility] Bpvxuqrazu7349 [place] [address]Dr. Airam Tripathi Creatinine [Mass/Vol] 1.05 mg/dL Critically high 0.55-1.02 [facility] Comment on above: Performed By: #### C MP ####[facility] Fagqnvxgqc9714[address] [place], [place] [address]Dr. Airam Tripathi EGFR-AF [place] >60 Normal >=60 [facility] Comment on above: Performed By: #### C MP ####[facility] Qkqlomsmmf148[address] [place], [place] [address]Dr. Airam Deuce EGFR-NON AF [place] 53 mL/min/1.73m2 Critically low >=60 [facility] Comment on above: Performed By: #### C MP ####[facility] Eipsmrxmnn586[address] [place], [place] [address]Dr. Airam Deuce Globulin (S) [Mass/Vol] 3.4 g/dL Normal [facility] Comment on above: Performed By: #### C MP ####[facility] Ydxofmsfcv0395 [place] [address]Dr. Airam Deuce Glucose [Mass/Vol] 78 mg/dL Normal 74-106 [facility] Comment on above: Performed By: #### C MP ####[facility] Ifpvaqixtf118[address] [place], [place] [address]Dr. Airam Deuce Potassium [Moles/Vol] 4.6 mmol/L Normal 3.5-5.1 [facility] Comment on above: Performed By: #### C MP ####[facility] Opaznnvfpo625[address] [place], [place] [address]Dr. Airam Tripathi Protein [Mass/Vol] 6.4 g/dL Normal 6.4-8.2 [facility] Comment on above: Performed By: #### C MP ####[facility] Zpunyidcnu764308 [address] [place], [place] [address]Dr. Airam Deuce Sodium [Moles/Vol] 133 mmol/L Critically low 136-145 [facility] Comment on above: Performed By: #### C MP ####[facility] Slwftovfzk833[address] [place], [place] [address]Dr. Airam Deuce Urea nitrogen [Mass/Vol] 26.0 mg/dL Critically high 7.0-18.0 [facility] Comment on above: Performed By: #### C MP ####[facility] Yqurmtqhoz39400[address] [place], [place] [address]Dr. Selenaneil Tripathi Urea nitrogen/Creatinine [Mass ratio] 24.8 mg/mg Normal [facility] Comment on above: Performed By: #### C MP ####[facility] Nljxbcqqgt314[address] [place], [place] [address]DrKianna Tripathi OSMOLALITYon 07-29-2022 Osmolality [Osmolality] 287 mosm/kg Normal 275-295 [facility] Comment on above: Performed By: #### O SMO ####[facility] Iplauzpmwz6837[address] [place], [place] [address]Dr. Airam Deuce CBC AUTO DIFFon 07-27-2022 BASO # 0.0 103/ul Normal 0.0-0.1 [facility] Comment on above: Performed By: #### C BC ####[facility] Ivegcktfdy5039[address] [place], [place] [address]Dr. Airam Tripathi Basophils/100 WBC (Bld) 0.4 % Normal 0.2-2.0 [facility] Comment on above: Performed By: #### C BC ####[facility] Miqcqumphy947[address] [place], [place] [address]Dr. Airam Tripathi EO # 0.2 103/ul Normal 0.0-0.7 [facility] Comment on above: Performed By: #### C BC ####[facility] Odfommykho195[address] [place], [place] [address]Dr. Airam Tripathi Eosinophils/100 WBC (Bld) 2.6 % Normal 0.9-7.0 [facility] Comment on above: Performed By: #### C BC ####[facility] Qcajohfaio5514[address] [place], [place] [address]Dr. Airam Tripathi Erythrocyte distribution width (RBC) [Ratio] 14.2 % Normal 11.0-15.0 [facility] Comment on above: Performed By: #### C BC ####[facility] Hcrkacahpl728[address] [place], [place] [address]DrKianna Tripathi Hematocrit (Bld) [Volume fraction] 31.3 % Critically low 36.0-48.0 [facility] Comment on above: Performed By: #### C BC ####[facility] Wxhrrwkhbg070[address] [place], [place] [address]DrKianna Tripathi Hemoglobin (Bld) [Mass/Vol] 9.3 g/dL Critically low 12.0-16.0 [facility] Comment on above: Performed By: #### C BC ####[facility] Iyylrqjbmr047[address] [place], [place] [address]Dr. Airam Tripathi IG # 0.05 10e3/ul Critically high 0.00-0.03 [facility] Comment on above: Performed By: #### C BC ####[facility] Fadztwechi7614[address] [place], [place] [address]DrKianna Tripathi IG % 0.7 % Critically high 0.0-0.5 [facility] Comment on above: Performed By: #### C BC ####[facility] Igexwvcvoc3513[address] [place], [place] [address]DrKianna Tripathi LYMPH # 1.0 103/ul Critically low 1.2-3.8 [facility] Comment on above: Performed By: #### C BC ####[facility] Cluxhiieik597[address] [place], [place] [address]DrKianna Tripathi Lymphocytes/100 WBC (Bld) 13.4 % Critically low 20.5-60.0 [facility] Comment on above: Performed By: #### C BC ####[facility] Rfexbnojlb009[address] [place], [place] [address]DrKianna Tripathi MANUAL DIFF REQ NO Normal [facility] Comment on above: Performed By: #### C BC ####[facility] Lpllqwyany2882 [place] [address]DrKianna Tripathi MCH (RBC) [Entitic mass] 28.8 pg Normal 26.7-34.0 [facility] Comment on above: Performed By: #### C BC ####[facility] Eynibqfvhn9406 [place] [address]DrKianna Tripathi MCHC (RBC) [Mass/Vol] 29.7 g/dL Critically low 29.9-35.2 [facility] Comment on above: Performed By: #### C BC ####[facility] Qnhcivrwyw827[address] [place], [place] [address]DrKianna Tripathi MCV (RBC) [Entitic vol] 96.9 fL Normal 81.0-99.0 [facility] Comment on above: Performed By: #### C BC ####[facility] Qhaxkkvbxv2601[address] [place], [place] [address]DrKianna Tripathi MONO # 0.5 103/ul Normal 0.3-0.8 [facility] Comment on above: Performed By: #### C BC ####[facility] Cnfnwvnxay78110[address] [place], [place] [address]DrKianna Tripathi Monocytes/100 WBC (Bld) 6.3 % Normal 1.7-12.0 [facility] Comment on above: Performed By: #### C BC ####[facility] Vfarnzyabv400[address] [place], [place] [address]DrKianna Tripathi NEUT # 5.8 103/ul Normal 1.4-6.5 [facility] Comment on above: Performed By: #### C BC ####[facility] Cqhltvukhe897[address] [place], [place] [address]DrKianna Tripathi Neutrophils/100 WBC (Bld) 76.6 % Critically high 43.0-75.0 [facility] Comment on above: Performed By: #### C BC ####[facility] Zqqzmmttin1069[address] [place], [place] [address]DrKianna Tripathi Platelet mean volume (Bld) [Entitic vol] 10.3 fL Normal 9.5-13.5 [facility] Comment on above: Performed By: #### C BC ####[facility] Jvgfapjvvp1177 [place] [address]Dr. Airam Tripathi PLT 265 103/ul Normal 150-450 [facility] Comment on above: Performed By: #### C BC ####[facility] Gnwuekoyzh0193 [place] [address]Dr. Airam Tripathi RBC 3.23 106/ul Critically low 4.20-5.40 [facility] Comment on above: Performed By: #### C BC ####[facility] Gtiydgnoya9697 [place] [address]Dr. Airam Tripathi WBC 7.6 103/ul Normal 4.0-11.0 [facility] Comment on above: Performed By: #### C BC ####[facility] Egrfsvawpb228[address] [place], [place] [address]DrKianna Tripathi PROF 14(COMP METB)on 023 Albumin [Mass/Vol] 2.9 g/dL Critically low 3.4-5.0 [facility] Comment on above: Performed By: #### C MP ####[facility] Ktorpavmtl[address] [place], [place] [address]Dr. Airam Tripathi Albumin/Globulin [Mass ratio] 0.8 {ratio} Normal [facility] Comment on above: Performed By: #### C MP ####[facility] Ssoeseiafx256[address] [place], [place] [address]Dr. Airam Tripathi ALP [Catalytic activity/Vol] 175 U/L Critically high 46-116 [facility] Comment on above: Performed By: #### C MP ####[facility] Dlzdlogvtf490[address] [place], [place] [address]DrKianna Tripathi ALT [Catalytic activity/Vol] 24 U/L Normal 14-59 [facility] Comment on above: Performed By: #### C MP ####[facility] Enyewoxnjp236[address] [place], [place] [address]Dr. Airam Tripathi Anion gap [Moles/Vol] 14.3 mmol/L Normal [facility] Comment on above: Performed By: #### C MP ####[facility] Hmjzszbmmt6839 [place] [address]Dr. Airam Tripathi AST [Catalytic activity/Vol] 25 U/L Normal 15-37 [facility] Comment on above: Performed By: #### C MP ####[facility] Jzdknjltmr386[address] [place], [place] [address]Dr. Selenaneil Trpiathi Bilirubin [Mass/Vol] 0.2 mg/dL Normal 0.2-1.0 [facility] Comment on above: Performed By: #### C MP ####[facility] Pcfocnbqzk885[address] [place], [place] [address]Dr. Airam Tripathi Calcium [Mass/Vol] 8.6 mg/dL Normal 8.5-10.1 [facility] Comment on above: Performed By: #### C MP ####[facility] Lfppnpmmrb258[address] [place], [place] [address]Dr. Airam Tripathi Chloride [Moles/Vol] 102 mmol/L Normal 98-107 [facility] Comment on above: Performed By: #### C MP ####[facility] Xqwlcfdypq350[address] [place], [place] [address]Dr. Airam Tripathi CO2 [Moles/Vol] 23.7 mmol/L Normal 21.0-32.0 [facility] Comment on above: Performed By: #### C MP ####[facility] Uxmhrjhuvo256[address] [place], [place] [address]Dr. Airam Tripathi Creatinine [Mass/Vol] 1.29 mg/dL Critically high 0.55-1.02 [facility] Comment on above: Performed By: #### C MP ####[facility] Yaqpwrnhlg015[address] [place], [place] [address]Dr. Airam Tripathi EGFR-AF [place] 51 mL/min/1.73m2 Critically low >=60 [facility] Comment on above: Performed By: #### C MP ####[facility] Yczcumhmgq765[address] [place], [place] [address]Dr. Airam Tripathi EGFR-NON AF [place] 42 mL/min/1.73m2 Critically low >=60 [facility] Comment on above: Performed By: #### C MP ####[facility] Hhjsebufmp5004 [place] [address]Dr. Airam Tripathi Globulin (S) [Mass/Vol] 3.6 g/dL Normal [facility] Comment on above: Performed By: #### C MP ####[facility] Lgghjvpsbn036[address] [place], [place] [address]Dr. Airam Tripathi Glucose [Mass/Vol] 84 mg/dL Normal 74-106 [facility] Comment on above: Performed By: #### C MP ####[facility] Ntcesyxxah015[address] [place], [place] [address]Dr. Airam Tripathi Potassium [Moles/Vol] 5.0 mmol/L Normal 3.5-5.1 [facility] Comment on above: Performed By: #### C MP ####[facility] Kihejrztfg18020[address] [place], [place] [address]Dr. Airam Tripathi Protein [Mass/Vol] 6.5 g/dL Normal 6.4-8.2 [facility] Comment on above: Performed By: #### C MP ####[facility] Btpqumwavt3599[address] [place], [place] [address]Dr. Airam Tripathi Sodium [Moles/Vol] 135 mmol/L Critically low 136-145 [facility] Comment on above: Performed By: #### C MP ####[facility] Ebcaqhfaej265[address] [place], [place] [address]Dr. Airam Tripathi Urea nitrogen [Mass/Vol] 28.0 mg/dL Critically high 7.0-18.0 [facility] Comment on above: Performed By: #### C MP ####[facility] Ghyrvhjwee388[address] [place], [place] [address]Dr. Airam Tripathi Urea nitrogen/Creatinine [Mass ratio] 21.7 mg/mg Normal [facility] Comment on above: Performed By: #### C MP ####[facility] Cqjvjemgfz074[address] [place], [place] [address]Dr. Airam Tripathi XR LSPINE MIN 4 VIEWSon 02-0 XR LSPINE MIN 4 VIEWS Normal [facility] OSMOLALITYon 07-24-2022 Osmolality [Osmolality] 279 mosm/kg Normal 275-295 [facility] Comment on above: Performed By: #### O SMO ####[facility] Msezatqltg0584 [place] [address]Dr. Airam Tripathi CBC AUTO DIFFon 07-21-2022 BASO # 0.0 103/ul Normal 0.0-0.1 [facility] Comment on above: Performed By: #### C BC ####[facility] Vcwsogqxmw040[address] [place], [place] [address]Dr. Airam Tripathi Basophils/100 WBC (Bld) 0.4 % Normal 0.2-2.0 [facility] Comment on above: Performed By: #### C BC ####[facility] Ojvewwyyld034[address] [place], [place] [address]Dr. Airam Tripathi EO # 0.2 103/ul Normal 0.0-0.7 [facility] Comment on above: Performed By: #### C BC ####[facility] Snrlnaabxa337[address] [place], [place] [address]Dr. Airam Tripathi Eosinophils/100 WBC (Bld) 2.3 % Normal 0.9-7.0 [facility] Comment on above: Performed By: #### C BC ####[facility] Iffklpwwub44[address] [place], [place] [address]Dr. Airam Tripathi Erythrocyte distribution width (RBC) [Ratio] 13.6 % Normal 11.0-15.0 [facility] Comment on above: Performed By: #### C BC ####[facility] Qnqxcwlosf864[address] [place], [place] [address]Dr. Airam Tripathi Hematocrit (Bld) [Volume fraction] 32.6 % Critically low 36.0-48.0 [facility] Comment on above: Performed By: #### C BC ####[facility] Zxczoklwqh[address] [place], [place] [address]Dr. Airam Tripathi Hemoglobin (Bld) [Mass/Vol] 9.5 g/dL Critically low 12.0-16.0 [facility] Comment on above: Performed By: #### C BC ####[facility] Voocidcjkv6718 [place] [address]Dr. Airam Tripathi IG # 0.03 10e3/ul Normal 0.00-0.03 [facility] Comment on above: Performed By: #### C BC ####[facility] Yidcsqephv3644 [place] [address]Dr. Airam Tripathi IG % 0.4 % Normal 0.0-0.5 [facility] Comment on above: Performed By: #### C BC ####[facility] Hsfvbrnpqr7965 [place] [address]Dr. Airam Deuce LYMPH # 1.4 103/ul Normal 1.2-3.8 [facility] Comment on above: Performed By: #### C BC ####[facility] Qlkmypiwcs8284 [place] [address]Dr. Airam Tripathi Lymphocytes/100 WBC (Bld) 18.2 % Critically low 20.5-60.0 [facility] Comment on above: Performed By: #### C BC ####[facility] Rfizjdmdng8336 [place] [address]Dr. Selenaneil Tripathi MANUAL DIFF REQ NO Normal [facility] Comment on above: Performed By: #### C BC ####[facility] Lcpvpwempk1169 [place] [id number]. Airam Deuce MCH (RBC) [Entitic mass] 29.5 pg Normal 26.7-34.0 [facility] Comment on above: Performed By: #### C BC ####[facility] Bnddzahrdw8194 [place] [id number]. Airam Tripathi MCHC (RBC) [Mass/Vol] 29.1 g/dL Critically low 29.9-35.2 [facility] Comment on above: Performed By: #### C BC ####[facility] Hmjtvkhyzc7439 [place] [id number]. Airam Deuce MCV (RBC) [Entitic vol] 101.2 fL Critically high 81.0-99.0 [facility] Comment on above: Performed By: #### C BC ####[facility] Qryuonpnak5406 [place] [id number]. Airam Tripathi MONO # 0.6 103/ul Normal 0.3-0.8 [facility] Comment on above: Performed By: #### C BC ####[facility] Ryogsprqmm3031 [place] [id number]. Airam Tripathi Monocytes/100 WBC (Bld) 7.9 % Normal 1.7-12.0 [facility] Comment on above: Performed By: #### C BC ####[facility] Urohahkiyq5647 [place] [id number]. Airam Tripathi NEUT # 5.5 103/ul Normal 1.4-6.5 [facility] Comment on above: Performed By: #### C BC ####[facility] Jtkngvjrco1858 [place] [address]Dr. Airam Tripathi Neutrophils/100 WBC (Bld) 70.8 % Normal 43.0-75.0 [facility] Comment on above: Performed By: #### C BC ####[facility] Grzapbjywr0487 [place] [id number]. Airam Tripathi Platelet mean volume (Bld) [Entitic vol] 9.6 fL Normal 9.5-13.5 [facility] Comment on above: Performed By: #### C BC ####[facility] Dwnmdkjlcl9920 [place] [id number]. Airam Tripathi PLT 265 103/ul Normal 150-450 [facility] Comment on above: Performed By: #### C BC ####[facility] Lmqerdasii2413 [place] [id number]. Airam Tripathi RBC 3.22 106/ul Critically low 4.20-5.40 [facility] Comment on above: Performed By: #### C BC ####[facility] Bizbbuhziw5834 [place] [id number]. Airam Tripathi WBC 7.8 103/ul Normal 4.0-11.0 [facility] Comment on above: Performed By: #### C BC ####[facility] Nljecxbobk0250 [place] [address]Dr. Airam Tripathi PROF 14(COMP METB)on 023 Albumin [Mass/Vol] 2.9 g/dL Critically low 3.4-5.0 [facility] Comment on above: Performed By: #### C MP ####[facility] Ufwxemqmhx1514 [place] [address]Dr. Airam Tripathi Albumin/Globulin [Mass ratio] 0.9 {ratio} Normal [facility] Comment on above: Performed By: #### C MP ####[facility] Tzlokubmry059[address] [place], [place] [address]Dr. Airam Tripathi ALP [Catalytic activity/Vol] 176 U/L Critically high 46-116 [facility] Comment on above: Performed By: #### C MP ####[facility] Zrwvnhuarc56[address] [place], [place] [address]Dr. Airam Tripathi ALT [Catalytic activity/Vol] 19 U/L Normal 14-59 [facility] Comment on above: Performed By: #### C MP ####[facility] Ppueyrdmys98[address] [place], [place] [address]Dr. Airam Tripathi Anion gap [Moles/Vol] 12.6 mmol/L Normal [facility] Comment on above: Performed By: #### C MP ####[facility] Ufmvdjrmsy33[address] [place], [place] [address]Dr. Airam Tripathi AST [Catalytic activity/Vol] 25 U/L Normal 15-37 [facility] Comment on above: Performed By: #### C MP ####[facility] Elojcrvnjq80[address] [place], [place] [address]Dr. Airam Tripathi Bilirubin [Mass/Vol] 0.2 mg/dL Normal 0.2-1.0 [facility] Comment on above: Performed By: #### C MP ####[facility] Yvlmneyduc03[address] [place], [place] [address]Dr. Airam Tripathi Calcium [Mass/Vol] 8.5 mg/dL Normal 8.5-10.1 [facility] Comment on above: Performed By: #### C MP ####[facility] Grxwifipee9679 [place] [id number]. Airam Tripathi Chloride [Moles/Vol] 101 mmol/L Normal 98-107 [facility] Comment on above: Performed By: #### C MP ####[facility] Jxpvqlmawv6959 [place] [id number]. Airam Tripathi CO2 [Moles/Vol] 25.9 mmol/L Normal 21.0-32.0 [facility] Comment on above: Performed By: #### C MP ####[facility] Amybnshcbu0980 [place] [id number]. Airam Tripathi Creatinine [Mass/Vol] 1.11 mg/dL Critically high 0.55-1.02 [facility] Comment on above: Performed By: #### C MP ####[facility] Egufcvmiqp0632 [place] [address]Dr. Airam Tripathi EGFR-AF [place] >60 Normal >=60 [facility] Comment on above: Performed By: #### C MP ####[facility] Fihbexpubk4368 [place] [address]Dr. Airam Tripathi EGFR-NON AF [place] 50 mL/min/1.73m2 Critically low >=60 [facility] Comment on above: Performed By: #### C MP ####[facility] Xpxwuteaxd3242 [place] [address]Dr. Airam Tripathi Globulin (S) [Mass/Vol] 3.2 g/dL Normal [facility] Comment on above: Performed By: #### C MP ####[facility] Dsfxjaqmsr3524 [place] [address]Dr. Airam Tripathi Glucose [Mass/Vol] 80 mg/dL Normal 74-106 [facility] Comment on above: Performed By: #### C MP ####[facility] Gindbbrdyv2462 [place] [address]Dr. Airam Tripathi Potassium [Moles/Vol] 3.5 mmol/L Normal 3.5-5.1 [facility] Comment on above: Performed By: #### C MP ####[facility] B[address]clwioqp[address] [place] [address]Dr. Airam Tripathi Protein [Mass/Vol] 6.1 g/dL Critically low 6.4-8.2 [facility] Comment on above: Performed By: #### C MP ####[facility] Qtqhgfgkig[address] [place], [place] [address]Dr. Airam Tripathi Sodium [Moles/Vol] 136 mmol/L Normal 136-145 [facility] Comment on above: Performed By: #### C MP ####[facility] Doqekwuyzu8[address] [place], [place] [address]Dr. Airam Tripathi Urea nitrogen [Mass/Vol] 31.0 mg/dL Critically high 7.0-18.0 [facility] Comment on above: Performed By: #### C MP ####[facility] Eemdbsymps539[address] [place], [place] [address]Dr. Airam Tripathi Urea nitrogen/Creatinine [Mass ratio] 27.9 mg/mg Normal [facility] Comment on above: Performed By: #### C MP ####[facility] Wyoektaiai[address] [place], [place] [address]Dr. Airam Tripathi OSMOLALITYon 07-19-2022 Osmolality [Osmolality] 285 mosm/kg Normal 275-295 [facility] Comment on above: Performed By: #### O SMO ####[facility] Dtrcnjejah927[address] [place], [place] [address]Dr. Airam Tripathi CBC AUTO DIFFon 07-15-2022 BASO # 0.0 103/ul Normal 0.0-0.1 [facility] Comment on above: Performed By: #### C BC ####[facility] Efhxafzluj[address] [place], [place] [address]Dr. Airam Deuce Basophils/100 WBC (Bld) 0.2 % Normal 0.2-2.0 [facility] Comment on above: Performed By: #### C BC ####[facility] Ckykmngpzy513[address] [place], [place] [address]Dr. Airam Deuce EO # 0.1 103/ul Normal 0.0-0.7 [facility] Comment on above: Performed By: #### C BC ####[facility] Uefcswhkmk3934 [place] [id number]. Airam Tripathi Eosinophils/100 WBC (Bld) 1.4 % Normal 0.9-7.0 [facility] Comment on above: Performed By: #### C BC ####[facility] Spniekwnba1824 [place] [phone]. Airam Tripathi Erythrocyte distribution width (RBC) [Ratio] 13.0 % Normal 11.0-15.0 [facility] Comment on above: Performed By: #### C BC ####[facility] Izgzoxpvfv[address] [place], [place] [id number]. Airam Tripathi Hematocrit (Bld) [Volume fraction] 29.3 % Critically low 36.0-48.0 [facility] Comment on above: Performed By: #### C BC ####[facility] Myxdztmbli440[address] [place], [place] [address]Dr. Airam Tripathi Hemoglobin (Bld) [Mass/Vol] 10.3 g/dL Critically low 12.0-16.0 [facility] Comment on above: Performed By: #### C BC ####[facility] Tumpunozqj057[address] [place], [place] [address]Dr. Airam Tripathi IG # 0.05 10e3/ul Critically high 0.00-0.03 [facility] Comment on above: Performed By: #### C BC ####[facility] Sgazgogwwv026[address] [place], [place] [address]Dr. Airam Tripathi IG % 0.6 % Critically high 0.0-0.5 [facility] Comment on above: Performed By: #### C BC ####[facility] Qrluklkhzz[address] [place], [place] [id number]. Airam Tripathi LYMPH # 0.9 103/ul Critically low 1.2-3.8 [facility] Comment on above: Performed By: #### C BC ####[facility] Izggixjgxe635[address] [place], [place] [address]Dr. Airam Tripathi Lymphocytes/100 WBC (Bld) 10.6 % Critically low 20.5-60.0 [facility] Comment on above: Performed By: #### C BC ####[facility] D[address]ueqbjdf[address] [place] [address]Dr. Airam Tripathi MANUAL DIFF REQ NO Normal [facility] Comment on above: Performed By: #### C BC ####[facility] Aliyucakds0509 [place] [phone]. Airam Tripathi MCH (RBC) [Entitic mass] 29.3 pg Normal 26.7-34.0 [facility] Comment on above: Performed By: #### C BC ####[facility] Lwadayobws998[address] [place], [place] [address]Dr. Airam Tripathi MCHC (RBC) [Mass/Vol] 35.2 g/dL Normal 29.9-35.2 [facility] Comment on above: Performed By: #### C BC ####[facility] Smajlznkjb464[address] [place], [place] [address]Dr. Selenaneil Tripathi MCV (RBC) [Entitic vol] 83.5 fL Normal 81.0-99.0 [facility] Comment on above: Performed By: #### C BC ####[facility] Utzrthabpp615[address] [place], [place] [address]Dr. Airam Tripathi MONO # 0.5 103/ul Normal 0.3-0.8 [facility] Comment on above: Performed By: #### C BC ####[facility] Rsifesnhza006[address] [place], [place] [address]Dr. Selenaneil Tripathi Monocytes/100 WBC (Bld) 5.1 % Normal 1.7-12.0 [facility] Comment on above: Performed By: #### C BC ####[facility] Phclyjhows28260[address] [place], [place] [address]Dr. Airam Tripathi NEUT # 7.3 103/ul Critically high 1.4-6.5 [facility] Comment on above: Performed By: #### C BC ####[facility] Hmeedwaojd038[address] [place], [place] [address]Dr. Airam Deuce Neutrophils/100 WBC (Bld) 82.1 % Critically high 43.0-75.0 [facility] Comment on above: Performed By: #### C BC ####[facility] Bcvnculyrn18[address] [place] [address]Dr. Airam Tripathi Platelet mean volume (Bld) [Entitic vol] 8.9 fL Critically low 9.5-13.5 [facility] Comment on above: Performed By: #### C BC ####[facility] Pfnzytyfxh9[address] [place] [address]Dr. Airam Tripathi PLT 290 103/ul Normal 150-450 [facility] Comment on above: Performed By: #### C BC ####[facility] Ffwpudcwka6561 [place] [address]Dr. Airam Tripathi RBC 3.51 106/ul Critically low 4.20-5.40 [facility] Comment on above: Performed By: #### C BC ####[facility] Mfpnfhhtvj477[address] [place], [place] [address]Dr. Airam Tripathi WBC 8.9 103/ul Normal 4.0-11.0 [facility] Comment on above: Performed By: #### C BC ####[facility] Mfusgbgqva138[address] [place], [place] [address]Dr. Airam Tripathi PROF 14(COMP METB)on 023 Albumin [Mass/Vol] 3.2 g/dL Critically low 3.4-5.0 [facility] Comment on above: Performed By: #### C MP ####[facility] Zbgfqeajgw158[address] [place], [place] [address]Dr. Airam Tripathi Albumin/Globulin [Mass ratio] 0.9 {ratio} Normal [facility] Comment on above: Performed By: #### C MP ####[facility] Atkznzzbss432[address] [place], [place] [address]Dr. Airam Tripathi ALP [Catalytic activity/Vol] 194 U/L Critically high 46-116 [facility] Comment on above: Performed By: #### C MP ####[facility] Kcytnpykup6[address] [place] [address]Dr. Airam Tripathi ALT [Catalytic activity/Vol] 19 U/L Normal 14-59 [facility] Comment on above: Performed By: #### C MP ####[facility] Alsgeczqpw1589 [place] [phone]. Airam Tripathi Anion gap [Moles/Vol] 11.3 mmol/L Normal [facility] Comment on above: Performed By: #### C MP ####[facility] Imqcqcdyzo8474 [place] [phone]. Airam Tripathi AST [Catalytic activity/Vol] 24 U/L Normal 15-37 [facility] Comment on above: Performed By: #### C MP ####[facility] Tuhwlfcshj5014 [place] [phone]. Airam Tripathi Bilirubin [Mass/Vol] 0.2 mg/dL Normal 0.2-1.0 [facility] Comment on above: Performed By: #### C MP ####[facility] Atzlyjxuww9[address] [place], [place] [address]Dr. Airam Tripathi Calcium [Mass/Vol] 8.7 mg/dL Normal 8.5-10.1 [facility] Comment on above: Performed By: #### C MP ####[facility] Flltowkyqx56[address] [place], [place] [address]Dr. Airam Tripathi Chloride [Moles/Vol] 101 mmol/L Normal 98-107 [facility] Comment on above: Performed By: #### C MP ####[facility] Mpsjjpctmg376[address] [place], [place] [address]Dr. Airam Tripathi CO2 [Moles/Vol] 27.2 mmol/L Normal 21.0-32.0 [facility] Comment on above: Performed By: #### C MP ####[facility] Kokolptvep83[address] [place] [address]Dr. Airam Tripathi Creatinine [Mass/Vol] 1.17 mg/dL Critically high 0.55-1.02 [facility] Comment on above: Performed By: #### C MP ####[facility] Tfhegreddi7924 [place] [phone]. Airam Tripathi EGFR-AF [place] 57 mL/min/1.73m2 Critically low >=60 [facility] Comment on above: Performed By: #### C MP ####[facility] Lzaestdtrv2819 [place] [phone]. Airam Tripathi EGFR-NON AF [place] 47 mL/min/1.73m2 Critically low >=60 [facility] Comment on above: Performed By: #### C MP ####[facility] Ikrbhfyhkq4021 [place] [phone]. Airam Tripathi Globulin (S) [Mass/Vol] 3.5 g/dL Normal [facility] Comment on above: Performed By: #### C MP ####[facility] Qbziwvjmol1688 [place] [phone]. Airam Tripathi Glucose [Mass/Vol] 86 mg/dL Normal 74-106 [facility] Comment on above: Performed By: #### C MP ####[facility] Auqubhraao7465 [place] [phone]. Airam Tripathi Potassium [Moles/Vol] 5.5 mmol/L Critically high 3.5-5.1 [facility] Comment on above: Performed By: #### C MP ####[facility] Rsvcoeranj3522 [place] [phone]. Airam Tripathi Protein [Mass/Vol] 6.7 g/dL Normal 6.4-8.2 [facility] Comment on above: Performed By: #### C MP ####[facility] Sfmrwqnvez1960 [place] [phone]. Airam Tripathi Sodium [Moles/Vol] 134 mmol/L Critically low 136-145 [facility] Comment on above: Performed By: #### C MP ####[facility] Jidphyotqy8418 [place] [phone]. Airam Tripathi Urea nitrogen [Mass/Vol] 26.0 mg/dL Critically high 7.0-18.0 [facility] Comment on above: Performed By: #### C MP ####[facility] Zuqopwxrhq7500 [place] [phone]. Airam Tripathi Urea nitrogen/Creatinine [Mass ratio] 22.2 mg/mg Normal [facility] Comment on above: Performed By: #### C MP ####[facility] Fgvohlxbrh112[address] [place] [address]Dr. Airam Tripathi OSMOLALITYon 07-08-2022 Osmolality [Osmolality] 273 mosm/kg Critically low 275-295 [facility] Comment on above: Performed By: #### O SMO ####[facility] Ydcduwdveb033[address] [place], [place] [address]Dr. Airam Deuce CBC AUTO DIFFon 07-07-2022 BASO # 0.0 103/ul Normal 0.0-0.1 [facility] Comment on above: Performed By: #### C BC ####[facility] Hvfzzgkhok[address] [place], [place] [address]Dr. Airam Tripathi Basophils/100 WBC (Bld) 0.4 % Normal 0.2-2.0 [facility] Comment on above: Performed By: #### C BC ####[facility] Ozhxbdnrkb693[address] [place], [place] [address]Dr. Airam Tripathi EO # 0.1 103/ul Normal 0.0-0.7 [facility] Comment on above: Performed By: #### C BC ####[facility] Rmxexouelc[address] [place], [place] [address]Dr. Airam Tripathi Eosinophils/100 WBC (Bld) 1.6 % Normal 0.9-7.0 [facility] Comment on above: Performed By: #### C BC ####[facility] Fuewmkllqh940[address] [place], [place] [address]Dr. Airam Tripathi Erythrocyte distribution width (RBC) [Ratio] 13.1 % Normal 11.0-15.0 [facility] Comment on above: Performed By: #### C BC ####[facility] Oqtfkycdlf767[address] [place], [place] [address]Dr. Airam Tripathi Hematocrit (Bld) [Volume fraction] 33.7 % Critically low 36.0-48.0 [facility] Comment on above: Performed By: #### C BC ####[facility] Rxuojyormz[address] [place], [place] [address]Dr. Airam Tripathi Hemoglobin (Bld) [Mass/Vol] 9.9 g/dL Critically low 12.0-16.0 [facility] Comment on above: Performed By: #### C BC ####[facility] Jeouzcovum7499 [place] [address]Dr. Airam Tripathi IG # 0.05 10e3/ul Critically high 0.00-0.03 [facility] Comment on above: Performed By: #### C BC ####[facility] Xlljfhwmkq9115 [place] [address]Dr. Airam Tripathi IG % 0.6 % Critically high 0.0-0.5 [facility] Comment on above: Performed By: #### C BC ####[facility] Aneihunmdi6575 [place] [address]Dr. Airam Tripathi LYMPH # 1.2 103/ul Normal 1.2-3.8 [facility] Comment on above: Performed By: #### C BC ####[facility] Gvknrvaucp3411 [place] [address]Dr. Airam Tripathi Lymphocytes/100 WBC (Bld) 15.5 % Critically low 20.5-60.0 [facility] Comment on above: Performed By: #### C BC ####[facility] Rzhkntltat7734 [place] [address]DrKianna Tripathi MANUAL DIFF REQ NO Normal [facility] Comment on above: Performed By: #### C BC ####[facility] Xhnwmaqjdi3772 [place] [address]Dr. Airam Tripathi MCH (RBC) [Entitic mass] 28.7 pg Normal 26.7-34.0 [facility] Comment on above: Performed By: #### C BC ####[facility] Algvlzcoet4030 [place] [address]Dr. Airam Tripathi MCHC (RBC) [Mass/Vol] 29.4 g/dL Critically low 29.9-35.2 [facility] Comment on above: Performed By: #### C BC ####[facility] Ubpxxvwpww3276 [place] [address]Dr. Airam Tripathi MCV (RBC) [Entitic vol] 97.7 fL Normal 81.0-99.0 [facility] Comment on above: Performed By: #### C BC ####[facility] Dlcgdqhfpu4772 [place] [phone]. Airam Tripathi MONO # 0.6 103/ul Normal 0.3-0.8 [facility] Comment on above: Performed By: #### C BC ####[facility] Cncrazqdzx6693 [place] [phone]. Airam Tripathi Monocytes/100 WBC (Bld) 7.7 % Normal 1.7-12.0 [facility] Comment on above: Performed By: #### C BC ####[facility] Vxvkrnxejp8620 [place] [phone]. Airam Tripathi NEUT # 5.9 103/ul Normal 1.4-6.5 [facility] Comment on above: Performed By: #### C BC ####[facility] Rmwbjjmbui834[address] [place], [place] [address]Dr. Airam Tripathi Neutrophils/100 WBC (Bld) 74.2 % Normal 43.0-75.0 [facility] Comment on above: Performed By: #### C BC ####[facility] Qmcbcjnbxx6917 [place] [phone]. Airam Tripathi Platelet mean volume (Bld) [Entitic vol] 9.4 fL Critically low 9.5-13.5 [facility] Comment on above: Performed By: #### C BC ####[facility] Afjcxxxhyh8728 [place] [phone]. Airam Tripathi PLT 331 103/ul Normal 150-450 [facility] Comment on above: Performed By: #### C BC ####[facility] Nvityozbgy6282 [place] [phone]. Airam Tripathi RBC 3.45 106/ul Critically low 4.20-5.40 [facility] Comment on above: Performed By: #### C BC ####[facility] Drhjzaqtbx3257 [place] [phone]. Airam Tripathi WBC 7.9 103/ul Normal 4.0-11.0 [facility] Comment on above: Performed By: #### C BC ####[facility] Prutidhhgt1296 [place] [address]Dr. Airam Tripathi PROF 14(COMP METB)on 023 Albumin [Mass/Vol] 3.4 g/dL Normal 3.4-5.0 [facility] Comment on above: Performed By: #### C MP ####[facility] Xtiylvmauc2937 [place] [address]Dr. Airam Tripathi Albumin/Globulin [Mass ratio] 1.1 {ratio} Normal [facility] Comment on above: Performed By: #### C MP ####[facility] Fwombibzoy[address] [place], [place] [address]Dr. Airam Tripathi ALP [Catalytic activity/Vol] 197 U/L Critically high 46-116 [facility] Comment on above: Performed By: #### C MP ####[facility] Jttuxzxxts603[address] [place], [place] [address]Dr. Airam Tripathi ALT [Catalytic activity/Vol] 18 U/L Normal 14-59 [facility] Comment on above: Performed By: #### C MP ####[facility] Uqemrarnsr969[address] [place], [place] [address]Dr. Airam Tripathi Anion gap [Moles/Vol] 12.3 mmol/L Normal [facility] Comment on above: Performed By: #### C MP ####[facility] Jgznloccrw457[address] [place], [place] [address]Dr. Airam Tripathi AST [Catalytic activity/Vol] 26 U/L Normal 15-37 [facility] Comment on above: Performed By: #### C MP ####[facility] Gvgsyizjkw904[address] [place], [place] [address]Dr. Airam Tripathi Bilirubin [Mass/Vol] 0.3 mg/dL Normal 0.2-1.0 [facility] Comment on above: Performed By: #### C MP ####[facility] Qevevovije946[address] [place], [place] [address]Dr. Airam Tripathi Calcium [Mass/Vol] 8.6 mg/dL Normal 8.5-10.1 [facility] Comment on above: Performed By: #### C MP ####[facility] Mmedtkzwik4734 [place] [address]Dr. Airam Tripathi Chloride [Moles/Vol] 96 mmol/L Critically low 98-107 [facility] Comment on above: Performed By: #### C MP ####[facility] Pqcdjansmb8659 [place] [phone]. Airam Tripathi CO2 [Moles/Vol] 27.8 mmol/L Normal 21.0-32.0 [facility] Comment on above: Performed By: #### C MP ####[facility] Onnomqlzcc750[address] [place], [place] [address]Dr. Airam Tripathi Creatinine [Mass/Vol] 1.55 mg/dL Critically high 0.55-1.02 [facility] Comment on above: Performed By: #### C MP ####[facility] Snpsksiohr780[address] [place], [place] [address]Dr. Airam Tripathi EGFR-AF [place] 41 mL/min/1.73m2 Critically low >=60 [facility] Comment on above: Performed By: #### C MP ####[facility] Idgxtohzeb987[address] [place], [place] [address]Dr. Airam Tripathi EGFR-NON AF [place] 34 mL/min/1.73m2 Critically low >=60 [facility] Comment on above: Performed By: #### C MP ####[facility] Blgopuxqcb98[address] [place], [place] [address]Dr. Airam Tripathi Globulin (S) [Mass/Vol] 3.2 g/dL Normal [facility] Comment on above: Performed By: #### C MP ####[facility] Brqbrqcfsa588[address] [place], [place] [address]Dr. Airam Tripathi Glucose [Mass/Vol] 87 mg/dL Normal 74-106 [facility] Comment on above: Performed By: #### C MP ####[facility] Useulrioym68[address] [place], [place] [address]Dr. Airam Tripathi Potassium [Moles/Vol] 5.1 mmol/L Normal 3.5-5.1 [facility] Comment on above: Performed By: #### C MP ####[facility] Kbepbcevbf4245 [place] [address]Dr. Airam Tripathi Protein [Mass/Vol] 6.6 g/dL Normal 6.4-8.2 [facility] Comment on above: Performed By: #### C MP ####[facility] Tcoumgetlm09220[address] [place], [place] [address]Dr. Airam Tripathi Sodium [Moles/Vol] 131 mmol/L Critically low 136-145 [facility] Comment on above: Performed By: #### C MP ####[facility] Lqpyxffoqx8217[address] [place], [place] [address]Dr. Airam Deuce Urea nitrogen [Mass/Vol] 31.0 mg/dL Critically high 7.0-18.0 [facility] Comment on above: Performed By: #### C MP ####[facility] Bgmdjwvkul538[address] [place], [place] [address]Dr. Airam Deuce Urea nitrogen/Creatinine [Mass ratio] 20.0 mg/mg Normal [facility] Comment on above: Performed By: #### C MP ####[facility] Dnmrveefbd510[address] [place], [place] [address]Dr. Airam Tripathi OSMOLALITYon 07-02-2022 Osmolality [Osmolality] 281 mosm/kg Normal 275-295 [facility] Comment on above: Performed By: #### O SMO ####[facility] Loduzncqzj494[address] [place], [place] [address]Dr. Airam Deuce CBC AUTO DIFFon 06-29-2022 BASO # 0.0 103/ul Normal 0.0-0.1 [facility] Comment on above: Performed By: #### C BC ####[facility] Zeaynqeitb139[address] [place], [place] [address]Dr. Airam Deuce Basophils/100 WBC (Bld) 0.3 % Normal 0.2-2.0 [facility] Comment on above: Performed By: #### C BC ####[facility] Uhbldwueqn817[address] [place], [place] [address]Dr. Airam Tripathi EO # 0.2 103/ul Normal 0.0-0.7 [facility] Comment on above: Performed By: #### C BC ####[facility] Slwrflirtt9322 [place] [address]Dr. Airam Tripathi Eosinophils/100 WBC (Bld) 2.3 % Normal 0.9-7.0 [facility] Comment on above: Performed By: #### C BC ####[facility] Nzunlywsom5866 [place] [address]Dr. Airam Tripathi Erythrocyte distribution width (RBC) [Ratio] 13.2 % Normal 11.0-15.0 [facility] Comment on above: Performed By: #### C BC ####[facility] Scqxxpiljg1282 [place] [address]Dr. Airam Tripathi Hematocrit (Bld) [Volume fraction] 28.2 % Critically low 36.0-48.0 [facility] Comment on above: Performed By: #### C BC ####[facility] Dujlxkrlss9[address] [place], [place] [address]Dr. Airam Tripathi Hemoglobin (Bld) [Mass/Vol] 9.1 g/dL Critically low 12.0-16.0 [facility] Comment on above: Performed By: #### C BC ####[facility] Hytfououbb613[address] [place], [place] [address]Dr. Airam Tripathi IG # 0.03 10e3/ul Normal 0.00-0.03 [facility] Comment on above: Performed By: #### C BC ####[facility] Gfbatvadzb816[address] [place], [place] [address]Dr. Airam Tripathi IG % 0.4 % Normal 0.0-0.5 [facility] Comment on above: Performed By: #### C BC ####[facility] Dilwcndlgz[address] [place], [place] [address]Dr. Airam Tripathi LYMPH # 1.0 103/ul Critically low 1.2-3.8 [facility] Comment on above: Performed By: #### C BC ####[facility] Lfdwcwxxnb0814[address] [place], [place] [address]Dr. Airam Tripathi Lymphocytes/100 WBC (Bld) 12.8 % Critically low 20.5-60.0 [facility] Comment on above: Performed By: #### C BC ####[facility] Bstcmgunuj7300 [place] [address]DrKianna Tripathi MANUAL DIFF REQ NO Normal [facility] Comment on above: Performed By: #### C BC ####[facility] Cbidqsvprj6708 [place] [phone]. Airam Tripathi MCH (RBC) [Entitic mass] 29.9 pg Normal 26.7-34.0 [facility] Comment on above: Performed By: #### C BC ####[facility] Udlcdxqtnv5565 [place] [address]Dr. Airam Tripathi MCHC (RBC) [Mass/Vol] 32.3 g/dL Normal 29.9-35.2 [facility] Comment on above: Performed By: #### C BC ####[facility] Roqyxrfosg22[address] [place], [place] [address]Dr. Airam Tripathi MCV (RBC) [Entitic vol] 92.8 fL Normal 81.0-99.0 [facility] Comment on above: Performed By: #### C BC ####[facility] Mtriqinjsm[address] [place], [place] [address]DrKianna Tripathi MONO # 0.5 103/ul Normal 0.3-0.8 [facility] Comment on above: Performed By: #### C BC ####[facility] Qlwoecwoek[address] [place], [place] [address]Dr. Airam Tripathi Monocytes/100 WBC (Bld) 6.0 % Normal 1.7-12.0 [facility] Comment on above: Performed By: #### C BC ####[facility] Dsjlsivodb9[address] [place], [place] [address]DrKianna Tripathi NEUT # 6.0 103/ul Normal 1.4-6.5 [facility] Comment on above: Performed By: #### C BC ####[facility] Vwjfhfonlv[address] [place], [place] [address]DrKianna Tripathi Neutrophils/100 WBC (Bld) 78.2 % Critically high 43.0-75.0 [facility] Comment on above: Performed By: #### C BC ####[facility] Cxrcswybje6671 [place] [address]DrKianna Tripathi Platelet mean volume (Bld) [Entitic vol] 9.0 fL Critically low 9.5-13.5 [facility] Comment on above: Performed By: #### C BC ####[facility] Pzntfxcido7316 [place] [address]DrKianna Tripathi PLT 332 103/ul Normal 150-450 [facility] Comment on above: Performed By: #### C BC ####[facility] Bvwcyckszl2156 [place] [address]DrKianna Tripathi RBC 3.04 106/ul Critically low 4.20-5.40 [facility] Comment on above: Performed By: #### C BC ####[facility] Oghnafkfpw2488 [place] [address]DrKianna Tripathi WBC 7.7 103/ul Normal 4.0-11.0 [facility] Comment on above: Performed By: #### C BC ####[facility] Rsklinkbvc2604 [place] [phone]. Airam Tripathi PROF 14(COMP METB)on 023 Albumin [Mass/Vol] 3.2 g/dL Critically low 3.4-5.0 [facility] Comment on above: Performed By: #### C MP ####[facility] Okeaaofvxf3940 [place] [address]DrKianna Tripathi Albumin/Globulin [Mass ratio] 0.9 {ratio} Normal [facility] Comment on above: Performed By: #### C MP ####[facility] Usqzffbddp5119 [place] [phone] Tripathi ALP [Catalytic activity/Vol] 135 U/L Critically high 46-116 [facility] Comment on above: Performed By: #### C MP ####[facility] [address] [place] [id number] Tripathi ALT [Catalytic activity/Vol] 25 U/L Normal 14-59 [facility] Comment on above: Performed By: #### C MP ####[facility] Xlylomnann1193 [place] [phone]. Airam Tripathi Anion gap [Moles/Vol] 9.1 mmol/L Normal [facility] Comment on above: Performed By: #### C MP ####[facility] Zmpnvsohil6270 [place] [phone]. Airam Tripathi AST [Catalytic activity/Vol] 34 U/L Normal 15-37 [facility] Comment on above: Performed By: #### C MP ####[facility] Pnoylfplmq7794 [place] [phone]. Airam Deuce Bilirubin [Mass/Vol] 0.3 mg/dL Normal 0.2-1.0 [facility] Comment on above: Performed By: #### C MP ####[facility] Wbxrpatpiv0299 [place] [phone]. Airam Deuce Calcium [Mass/Vol] 8.6 mg/dL Normal 8.5-10.1 [facility] Comment on above: Performed By: #### C MP ####[facility] Xlnimwgfku8847 [place] [phone]. Airam Deuce Chloride [Moles/Vol] 99 mmol/L Normal 98-107 [facility] Comment on above: Performed By: #### C MP ####[facility] Ossaydytsg2525 [place] [phone]. Airam Deuce CO2 [Moles/Vol] 29.1 mmol/L Normal 21.0-32.0 [facility] Comment on above: Performed By: #### C MP ####[facility] Wqbsqszncx4091 [place] [phone]. Airam Deuce Creatinine [Mass/Vol] 1.40 mg/dL Critically high 0.55-1.02 [facility] Comment on above: Performed By: #### C MP ####[facility] Dfzskywamg5698 [place] [phone]. Airam Deuce EGFR-AF [place] 46 mL/min/1.73m2 Critically low >=60 [facility] Comment on above: Performed By: #### C MP ####[facility] Tluvmkpjmw2645 [place] [phone]. Airam Tripathi EGFR-NON AF [place] 38 mL/min/1.73m2 Critically low >=60 [facility] Comment on above: Performed By: #### C MP ####[facility] Keaewhsujl6154 [place] [phone]. Airam Tripathi Globulin (S) [Mass/Vol] 3.4 g/dL Normal [facility] Comment on above: Performed By: #### C MP ####[facility] Qfhvzhunih1660 [place] [phone]. Airam Tripathi Glucose [Mass/Vol] 83 mg/dL Normal 74-106 [facility] Comment on above: Performed By: #### C MP ####[facility] Xwppahvefw4715 [place] [phone]. Airam Deuce Potassium [Moles/Vol] 4.2 mmol/L Normal 3.5-5.1 [facility] Comment on above: Performed By: #### C MP ####[facility] Rihvlaltih2888 [place] [phone]. Airam Tripathi Protein [Mass/Vol] 6.6 g/dL Normal 6.4-8.2 [facility] Comment on above: Performed By: #### C MP ####[facility] Krkvnenghy8067 [place] [phone]. Airam Tripathi Sodium [Moles/Vol] 133 mmol/L Critically low 136-145 [facility] Comment on above: Performed By: #### C MP ####[facility] Dlzrzrqwmm2000 [place] [phone]. Airam Tripathi Urea nitrogen [Mass/Vol] 37.0 mg/dL Critically high 7.0-18.0 [facility] Comment on above: Performed By: #### C MP ####[facility] Jcyivyrjdd2686 [place] [phone]. Airam Deuce Urea nitrogen/Creatinine [Mass ratio] 26.4 mg/mg Normal [facility] Comment on above: Performed By: #### C MP ####[facility] Khwqouctrj7388 [place] [address]Dr. Airam Tripathi BNPon 06-18-2022 Natriuretic peptide B (Bld) [Mass/Vol] 5826.0 pg/mL Critically high <=900.0 [facility] Comment on above: Performed By: #### B ROENTGENOLOGIST, CMP ####[facility] Dugspnenwz430[address] [place], [place] [address]Dr. Airam Deuce CBC AUTO DIFFon 06-18-2022 BASO # 0.0 103/ul Normal 0.0-0.1 [facility] Comment on above: Performed By: #### C BC ####[facility] Jvnwdaxnhb964[address] [place], [place] [address]Dr. Airam Tripathi Basophils/100 WBC (Bld) 0.4 % Normal 0.2-2.0 [facility] Comment on above: Performed By: #### C BC ####[facility] Xdbnkdjciy214[address] [place], [place] [address]Dr. Airam Tripathi EO # 0.1 103/ul Normal 0.0-0.7 [facility] Comment on above: Performed By: #### C BC ####[facility] Cuxpueglns57[address] [place], [place] [address]Dr. Airam Deuce Eosinophils/100 WBC (Bld) 1.3 % Normal 0.9-7.0 [facility] Comment on above: Performed By: #### C BC ####[facility] Yyrozaqpjp659[address] [place], [place] [address]Dr. Airam Tripathi Erythrocyte distribution width (RBC) [Ratio] 13.4 % Normal 11.0-15.0 [facility] Comment on above: Performed By: #### C BC ####[facility] Yvdjjjklpi108[address] [place], [place] [address]DrKianna Tripathi Hematocrit (Bld) [Volume fraction] 27.3 % Critically low 36.0-48.0 [facility] Comment on above: Performed By: #### C BC ####[facility] Xbjyczeuqw559[address] [place], [place] [address]Dr. Selenaneil Deuce Hemoglobin (Bld) [Mass/Vol] 8.6 g/dL Critically low 12.0-16.0 [facility] Comment on above: Performed By: #### C BC ####[facility] Leiyqbvceg3093 [place] [address]Dr. Selenaneil Tripathi IG # 0.08 10e3/ul Critically high 0.00-0.03 [facility] Comment on above: Performed By: #### C BC ####[facility] Cjseprcfcb0883 [place] [address]Dr. Selenaneil Tripathi IG % 0.8 % Critically high 0.0-0.5 [facility] Comment on above: Performed By: #### C BC ####[facility] Ludbufdekc2667 [place] [address]DrKianna Tripathi LYMPH # 1.9 103/ul Normal 1.2-3.8 [facility] Comment on above: Performed By: #### C BC ####[facility] Ppawxerfjb805[address] [place], [place] [address]DrKianna Tripathi Lymphocytes/100 WBC (Bld) 19.3 % Critically low 20.5-60.0 [facility] Comment on above: Performed By: #### C BC ####[facility] Zwrfitjkkv2970 [place] [address]DrKianna Selenaneil Tripathi MANUAL DIFF REQ NO Normal [facility] Comment on above: Performed By: #### C BC ####[facility] Xldskakesa4883 [place] [address]DrKianna Airam Deuce MCH (RBC) [Entitic mass] 29.6 pg Normal 26.7-34.0 [facility] Comment on above: Performed By: #### C BC ####[facility] Tqspunuctl136[address] [place], [place] [address]DrKianna Tripathi MCHC (RBC) [Mass/Vol] 31.5 g/dL Normal 29.9-35.2 [facility] Comment on above: Performed By: #### C BC ####[facility] Auztslhrkl[address] [place], [place] [address]Dr. Airam Deuce MCV (RBC) [Entitic vol] 93.8 fL Normal 81.0-99.0 [facility] Comment on above: Performed By: #### C BC ####[facility] Trwewgzaiv7517 [place] [address]Dr. Airam Tripathi MONO # 0.6 103/ul Normal 0.3-0.8 [facility] Comment on above: Performed By: #### C BC ####[facility] Sjknhvtfas85[address] [place], [place] [address]Dr. Airam Deuce Monocytes/100 WBC (Bld) 6.5 % Normal 1.7-12.0 [facility] Comment on above: Performed By: #### C BC ####[facility] Nrlbooclsb146[address] [place], [place] [address]Dr. Airam Tripathi NEUT # 6.9 103/ul Critically high 1.4-6.5 [facility] Comment on above: Performed By: #### C BC ####[facility] Donjrnoyuk[address] [place], [place] [address]Dr. Airam Deuce Neutrophils/100 WBC (Bld) 71.7 % Normal 43.0-75.0 [facility] Comment on above: Performed By: #### C BC ####[facility] Fvgydzijty3215[address] [place], [place] [address]Dr. Airam Deuce Platelet mean volume (Bld) [Entitic vol] 8.5 fL Critically low 9.5-13.5 [facility] Comment on above: Performed By: #### C BC ####[facility] Bvebvjgnof887[address] [place], [place] [address]Dr. Selenaneil Deuce PLT 295 103/ul Normal 150-450 [facility] Comment on above: Performed By: #### C BC ####[facility] Jawxplzfis627[address] [place], [place] [address]DrKianna Tripathi RBC 2.91 106/ul Critically low 4.20-5.40 [facility] Comment on above: Performed By: #### C BC ####[facility] Bncnjuhxza7039[address] [place], [place] [address]DrKianna Tripathi WBC 9.7 103/ul Normal 4.0-11.0 [facility] Comment on above: Performed By: #### C BC ####[facility] Ufvqfvoucz4699[address] [place], [place] [address]Dr. Airam Tripathi PROF 14(COMP METB)on 06-18-2 022 Albumin [Mass/Vol] 2.8 g/dL Critically low 3.4-5.0 [facility] Comment on above: Performed By: #### B ROENTGENOLOGIST, CMP ####[facility] Dvcbgeasdi585[address] [place], [place] [address]Dr. Airam Tripathi Albumin/Globulin [Mass ratio] 0.9 {ratio} Normal [facility] Comment on above: Performed By: #### B ROENTGENOLOGIST, CMP ####[facility] Cmgsqercht976[address] [place], [place] [address]Dr. Airam Tripathi ALP [Catalytic activity/Vol] 125 U/L Critically high 46-116 [facility] Comment on above: Performed By: #### B ROENTGENOLOGIST, CMP ####[facility] Eppdtyriwb505[address] [place], [place] [address]Dr. Airam Tripathi ALT [Catalytic activity/Vol] 16 U/L Normal 14-59 [facility] Comment on above: Performed By: #### B ROENTGENOLOGIST, CMP ####[facility] Ytkpolkugz5634 [place] [address]Dr. Airam Tripathi Anion gap [Moles/Vol] 11.4 mmol/L Normal [facility] Comment on above: Performed By: #### B ROENTGENOLOGIST, CMP ####[facility] Rxqqdsyohy000[address] [place], [place] [address]Dr. Airam Tripathi AST [Catalytic activity/Vol] 23 U/L Normal 15-37 [facility] Comment on above: Performed By: #### B ROENTGENOLOGIST, CMP ####[facility] Krvlwjttna968[address] [place], [place] [address]Dr. Airam Tripathi Bilirubin [Mass/Vol] 0.2 mg/dL Normal 0.2-1.0 [facility] Comment on above: Performed By: #### B ROENTGENOLOGIST, CMP ####[facility] Nbpkdthmec887[address] [place], [place] [address]Dr. Airam Tripathi Calcium [Mass/Vol] 8.1 mg/dL Critically low 8.5-10.1 [facility] Comment on above: Performed By: #### B ROENTGENOLOGIST, CMP ####[facility] Qlwnzwkyny480[address] [place], [place] [address]Dr. Airam Tripathi Chloride [Moles/Vol] 96 mmol/L Critically low 98-107 [facility] Comment on above: Performed By: #### B ROENTGENOLOGIST, CMP ####[facility] Blggaffrau914[address] [place], [place] [address]Dr. Airam Tripathi CO2 [Moles/Vol] 26.6 mmol/L Normal 21.0-32.0 [facility] Comment on above: Performed By: #### B ROENTGENOLOGIST, CMP ####[facility] Hosmaqlzdw647[address] [place], [place] [address]Dr. Airam Tripathi Creatinine [Mass/Vol] 1.31 mg/dL Critically high 0.55-1.02 [facility] Comment on above: Performed By: #### B ROENTGENOLOGIST, CMP ####[facility] Kfkmwnrfzy540[address] [place], [place] [address]Dr. Airam Tripathi EGFR-AF [place] 50 mL/min/1.73m2 Critically low >=60 [facility] Comment on above: Performed By: #### B ROENTGENOLOGIST, CMP ####[facility] Gzvveujwsz788[address] [place], [place] [address]Dr. Airam Tripathi EGFR-NON AF [place] 41 mL/min/1.73m2 Critically low >=60 [facility] Comment on above: Performed By: #### B ROENTGENOLOGIST, CMP ####[facility] Xdqdzswaje437[address] [place], [place] [address]Dr. Airam Tripathi Globulin (S) [Mass/Vol] 3.0 g/dL Normal [facility] Comment on above: Performed By: #### B ROENTGENOLOGIST, CMP ####[facility] Mwliqqzvrb268[address] [place], [place] [address]Dr. Airam Tripathi Glucose [Mass/Vol] 82 mg/dL Normal 74-106 [facility] Comment on above: Performed By: #### B ROENTGENOLOGIST, CMP ####[facility] Raemcmuqel6442 [place] [address]Dr. Airam Tripathi Potassium [Moles/Vol] 4.0 mmol/L Normal 3.5-5.1 [facility] Comment on above: Performed By: #### B ROENTGENOLOGIST, CMP ####[facility] Butzmwmpzs807[address] [place], [place] [address]Dr. Airam Tripathi Protein [Mass/Vol] 5.8 g/dL Critically low 6.4-8.2 [facility] Comment on above: Performed By: #### B ROENTGENOLOGIST, CMP ####[facility] Gpeojuqgji2624[address] [place], [place] [address]Dr. Airam Tripathi Sodium [Moles/Vol] 130 mmol/L Critically low 136-145 [facility] Comment on above: Performed By: #### B ROENTGENOLOGIST, CMP ####[facility] Hpwfbbcokg9315[address] [place], [place] [address]Dr. Airam Tripathi Urea nitrogen [Mass/Vol] 19.0 mg/dL Critically high 7.0-18.0 [facility] Comment on above: Performed By: #### B ROENTGENOLOGIST, CMP ####[facility] Im[address]qjixv[address] [place] [address]. Airam Tripathi Urea nitrogen/Creatinine [Mass ratio] 14.5 mg/mg Normal [facility] Comment on above: Performed By: #### B ROENTGENOLOGIST, CMP ####[facility] Yktopmseaf148[address] [place], [place] [address]Dr. Airam Tripathi BNPon 06-17-2022 Natriuretic peptide B (Bld) [Mass/Vol] 2510.0 pg/mL Critically high <=900.0 [facility] Comment on above: Performed By: #### B ROENTGENOLOGIST, CMP ####[facility] Nwrrmapuuh614[address] [place], [place] [address]Dr. Airam Tripathi CBC AUTO DIFFon 06-17-2022 BASO # 0.0 103/ul Normal 0.0-0.1 [facility] Comment on above: Performed By: #### C BC ####[facility] Fkdhxgyeez[address] [place] [address]. Airam Tripathi Basophils/100 WBC (Bld) 0.4 % Normal 0.2-2.0 [facility] Comment on above: Performed By: #### C BC ####[facility] Ggqaoefgli603[address] [place], [place] [address]Dr. Airam Tripathi EO # 0.0 103/ul Normal 0.0-0.7 [facility] Comment on above: Performed By: #### C BC ####[facility] Bafpmuchin37[address] [place], [place] [address]Dr. Airam Tripathi Eosinophils/100 WBC (Bld) 0.3 % Critically low 0.9-7.0 [facility] Comment on above: Performed By: #### C BC ####[facility] Kpjrjgxpoi155[address] [place], [place] [address]Dr. Airam Tripathi Erythrocyte distribution width (RBC) [Ratio] 13.6 % Normal 11.0-15.0 [facility] Comment on above: Performed By: #### C BC ####[facility] Tgtghxfqeg[address] [place], [place] [address]Dr. Airam Tripathi Hematocrit (Bld) [Volume fraction] 28.9 % Critically low 36.0-48.0 [facility] Comment on above: Performed By: #### C BC ####[facility] Vijhpflzic[address] [place], [place] [address]Dr. Airam Tripathi Hemoglobin (Bld) [Mass/Vol] 8.9 g/dL Critically low 12.0-16.0 [facility] Comment on above: Performed By: #### C BC ####[facility] Gaumvqlyzk[address] [place], [place] [address]Dr. Airam Tripathi IG # 0.10 10e3/ul Critically high 0.00-0.03 [facility] Comment on above: Performed By: #### C BC ####[facility] Attnevzfrx510[address] [place], [place] [address]Dr. Airam Tripathi IG % 1.3 % Critically high 0.0-0.5 [facility] Comment on above: Performed By: #### C BC ####[facility] Aijbdgshoo5780 [place] [id number]. Airam Tripathi LYMPH # 0.7 103/ul Critically low 1.2-3.8 [facility] Comment on above: Performed By: #### C BC ####[facility] Sliyaglfer2255 [place] [id number]. Airam Tripathi Lymphocytes/100 WBC (Bld) 8.1 % Critically low 20.5-60.0 [facility] Comment on above: Performed By: #### C BC ####[facility] Rdhktsjibi7286 [place] [address]Dr. Airam Deuce MANUAL DIFF REQ NO Normal [facility] Comment on above: Performed By: #### C BC ####[facility] Uvnmkblvmz3037 [place] [address]Dr. Airam Deuce MCH (RBC) [Entitic mass] 29.4 pg Normal 26.7-34.0 [facility] Comment on above: Performed By: #### C BC ####[facility] Zttwivlptf0689 [place] [address]Dr. Airam Tripathi MCHC (RBC) [Mass/Vol] 30.8 g/dL Normal 29.9-35.2 [facility] Comment on above: Performed By: #### C BC ####[facility] Qnjysfwcug3427 [place] [id number]. Airam Tripathi MCV (RBC) [Entitic vol] 95.4 fL Normal 81.0-99.0 [facility] Comment on above: Performed By: #### C BC ####[facility] Cyvhnmncuj6369 [place] [address]Dr. Airam Deuce MONO # 0.3 103/ul Normal 0.3-0.8 [facility] Comment on above: Performed By: #### C BC ####[facility] Sjtcuiddbg6737 [place] [address]Dr. Airam Deuce Monocytes/100 WBC (Bld) 3.1 % Normal 1.7-12.0 [facility] Comment on above: Performed By: #### C BC ####[facility] Otgjbqjvvv6160 [place] [id number]. Airam Tripathi NEUT # 7.0 103/ul Critically high 1.4-6.5 [facility] Comment on above: Performed By: #### C BC ####[facility] Ktpzoopnit6971 [place] [address]Dr. Airam Tripathi Neutrophils/100 WBC (Bld) 86.8 % Critically high 43.0-75.0 [facility] Comment on above: Performed By: #### C BC ####[facility] Gslfnkqiqc8929 [place] [address]Dr. Airam Tripathi Platelet mean volume (Bld) [Entitic vol] 8.3 fL Critically low 9.5-13.5 [facility] Comment on above: Performed By: #### C BC ####[facility] Rdbvdmmlyu6225 [place] [address]Dr. Airam Tripathi PLT 279 103/ul Normal 150-450 [facility] Comment on above: Performed By: #### C BC ####[facility] Tffwjthfhd7297 [place] [address]Dr. Airam Deuce RBC 3.03 106/ul Critically low 4.20-5.40 [facility] Comment on above: Performed By: #### C BC ####[facility] Etmlsrqnhw8179 [place] [address]Dr. Airam Tripathi WBC 8.0 103/ul Normal 4.0-11.0 [facility] Comment on above: Performed By: #### C BC ####[facility] Cnbcsqylgu9204 [place] [address]Dr. Airam Tripathi PROF 14(COMP METB)on 022 Albumin [Mass/Vol] 2.8 g/dL Critically low 3.4-5.0 [facility] Comment on above: Performed By: #### B ROENTGENOLOGIST, CMP ####[facility] Qbjptsdnme7642 [place] [address]Dr. Airam Tripathi Albumin/Globulin [Mass ratio] 0.9 {ratio} Normal [facility] Comment on above: Performed By: #### B ROENTGENOLOGIST, CMP ####[facility] Gbmuvzhnnj7240 [place] [phone]. Airam Tripathi ALP [Catalytic activity/Vol] 136 U/L Critically high 46-116 [facility] Comment on above: Performed By: #### B ROENTGENOLOGIST, CMP ####[facility] Ntkotmbiwz6367 [place] [phone]. Airam Tripathi ALT [Catalytic activity/Vol] 17 U/L Normal 14-59 [facility] Comment on above: Performed By: #### B ROENTGENOLOGIST, CMP ####[facility] Fewsbydbtl[address] [place], [place] [id number]. Airam Tripathi Anion gap [Moles/Vol] 12.9 mmol/L Normal [facility] Comment on above: Performed By: #### B ROENTGENOLOGIST, CMP ####[facility] Esheuohbtm814[address] [place], [place] [address]Dr. Airam Tripathi AST [Catalytic activity/Vol] 24 U/L Normal 15-37 [facility] Comment on above: Performed By: #### B ROENTGENOLOGIST, CMP ####[facility] Kdapxpaebv778[address] [place], [place] [address]Dr. Airam Tripathi Bilirubin [Mass/Vol] 0.2 mg/dL Normal 0.2-1.0 [facility] Comment on above: Performed By: #### B ROENTGENOLOGIST, CMP ####[facility] Kfbiekrwsk[address] [place], [place] [id number]. Airam Tripathi Calcium [Mass/Vol] 8.7 mg/dL Normal 8.5-10.1 [facility] Comment on above: Performed By: #### B ROENTGENOLOGIST, CMP ####[facility] Zmqufwgrht2316 [place] [address]Dr. Airam Tripathi Chloride [Moles/Vol] 102 mmol/L Normal 98-107 [facility] Comment on above: Performed By: #### B ROENTGENOLOGIST, CMP ####[facility] Ihsmqzlzkn24[address] [place], [place] [address]Dr. Selenaneil Tripathi CO2 [Moles/Vol] 23.8 mmol/L Normal 21.0-32.0 [facility] Comment on above: Performed By: #### B ROENTGENOLOGIST, CMP ####[facility] Opawbxrxyh1515 [place] [address]Dr. Airam Tripathi Creatinine [Mass/Vol] 1.08 mg/dL Critically high 0.55-1.02 [facility] Comment on above: Performed By: #### B ROENTGENOLOGIST, CMP ####[facility] Ckmryqmbol2511 [place] [address]Dr. Airam Tripathi EGFR-AF [place] >60 Normal >=60 [facility] Comment on above: Performed By: #### B ROENTGENOLOGIST, CMP ####[facility] Dszmccnaxp1992 [place] [address]Dr. Airam Tripathi EGFR-NON AF [place] 52 mL/min/1.73m2 Critically low >=60 [facility] Comment on above: Performed By: #### B ROENTGENOLOGIST, CMP ####[facility] Tkgptwogcq301[address] [place], [place] [address]Dr. Airam Tripathi Globulin (S) [Mass/Vol] 3.2 g/dL Normal [facility] Comment on above: Performed By: #### B ROENTGENOLOGIST, CMP ####[facility] Kbagcnxbkq158[address] [place], [place] [address]Dr. Airam Tripathi Glucose [Mass/Vol] 99 mg/dL Normal 74-106 [facility] Comment on above: Performed By: #### B ROENTGENOLOGIST, CMP ####[facility] Loyodatsnl[address] [place], [place] [address]Dr. Airam Tripathi Potassium [Moles/Vol] 4.7 mmol/L Normal 3.5-5.1 [facility] Comment on above: Performed By: #### B ROENTGENOLOGIST, CMP ####[facility] Lhuqnfjnlz937[address] [place], [place] [address]Dr. Airam Tripathi Protein [Mass/Vol] 6.0 g/dL Critically low 6.4-8.2 [facility] Comment on above: Performed By: #### B ROENTGENOLOGIST, CMP ####[facility] Fsztbmeels61[address] [place], [place] [address]Dr. Selenaneil Tripathi Sodium [Moles/Vol] 134 mmol/L Critically low 136-145 [facility] Comment on above: Performed By: #### B ROENTGENOLOGIST, CMP ####[facility] Ybacuircqj[address] [place], [place] [address]Dr. Airam Tripathi Urea nitrogen [Mass/Vol] 19.0 mg/dL Critically high 7.0-18.0 [facility] Comment on above: Performed By: #### B ROENTGENOLOGIST, CMP ####[facility] Pchlbadxuz920[address] [place], [place] [address]Dr. Airam Tripathi Urea nitrogen/Creatinine [Mass ratio] 17.6 mg/mg Normal [facility] Comment on above: Performed By: #### B ROENTGENOLOGIST, CMP ####[facility] Tldreduzcr[address] [place], [place] [address]Dr. Airam Deuce PROTIMEon 06-17-2022 INR Coag (PPP) [Relative time] 1.00 {INR} Normal [facility] Comment on above: Performed By: #### P T ####[facility] Rfiqvskvoi[address] [place], [place] [address]Dr. Selenaneil Tripathi INR GUIDELINES SEE BELOW Normal [facility] Comment on above: Result Comment: SIDRA RED INR: 2.0 - 3.0 CONDITIONS NOT LISTED BELOW 2.5 - 3.5 FOR PROSTHETIC HEART VALVE REPLACEMENT 2.5 - 3.5 RECURRENT THROMBOSIS Performed By: #### P T ####[facility] Bsbkgyjpmp[address] [place], [place] [address]Dr. Airam Tripathi PT Coag (PPP) [Time] 10.8 s Normal 9.0-11.6 [facility] Comment on above: Performed By: #### P T ####[facility] Kztfltlkrr[address] [place], [place] [address]Dr. Selenaneil Tripathi PTTon 06-17-2022 aPTT Coag (Bld) [Time] 27.2 s Normal 22.3-36.2 [facility] Comment on above: Performed By: #### P TT ####[facility] Gsoobrworr[address] [place], [place] [address]Dr. Airam Tripathi BNPon 06-16-2022 Natriuretic peptide B (Bld) [Mass/Vol] 2293.0 pg/mL Critically high <=900.0 [facility] Comment on above: Performed By: #### C MP, BNP ####[facility] Emrvimgvml9[address] [place], [place] [address]Dr. Airam Tripathi CBC AUTO DIFFon 06-16-2022 BASO # 0.0 103/ul Normal 0.0-0.1 [facility] Comment on above: Performed By: #### C BC ####[facility] Vgsyzitqhv[address] [place], [place] [address]Dr. Airam Tripathi Basophils/100 WBC (Bld) 0.4 % Normal 0.2-2.0 [facility] Comment on above: Performed By: #### C BC ####[facility] Xaicqkcfre[address] [place], [place] [address]Dr. Airam Tripathi EO # 0.2 103/ul Normal 0.0-0.7 [facility] Comment on above: Performed By: #### C BC ####[facility] Usgasswcnh[address] [place], [place] [address]Dr. Airam Tripathi Eosinophils/100 WBC (Bld) 3.0 % Normal 0.9-7.0 [facility] Comment on above: Performed By: #### C BC ####[facility] Pweyteuycz[address] [place], [place] [address]Dr. Airam Tripathi Erythrocyte distribution width (RBC) [Ratio] 13.3 % Normal 11.0-15.0 [facility] Comment on above: Performed By: #### C BC ####[facility] Lbyksrilxj[address] [address] [place], [place] [address]Dr. Airam Tripathi Hematocrit (Bld) [Volume fraction] 26.2 % Critically low 36.0-48.0 [facility] Comment on above: Performed By: #### C BC ####[facility] Zmcrpngixy[address] [place], [place] [address]Dr. Airam Tripathi Hemoglobin (Bld) [Mass/Vol] 8.3 g/dL Critically low 12.0-16.0 [facility] Comment on above: Performed By: #### C BC ####[facility] Vzysaiebat[address] [place], [place] [address]DrKianna Tripathi IG # 0.08 10e3/ul Critically high 0.00-0.03 [facility] Comment on above: Performed By: #### C BC ####[facility] F[address]fyuwcj[address] [place] [address]DrKianna Waltersneil Deuce IG % 1.1 % Critically high 0.0-0.5 [facility] Comment on above: Performed By: #### C BC ####[facility] Cazyrezdje4682 [place] [address]DrKianna Tripathi LYMPH # 1.2 103/ul Normal 1.2-3.8 [facility] Comment on above: Performed By: #### C BC ####[facility] Caqkavdcdd616[address] [place], [place] [address]DrKianna Tripathi Lymphocytes/100 WBC (Bld) 17.3 % Critically low 20.5-60.0 [facility] Comment on above: Performed By: #### C BC ####[facility] Uskiaypwha[address] [place], [place] [address]DrKianna Tripathi MANUAL DIFF REQ NO Normal [facility] Comment on above: Performed By: #### C BC ####[facility] Wqjxcbzkzd[address] [place], [place] [address]DrKianna Tripathi MCH (RBC) [Entitic mass] 30.3 pg Normal 26.7-34.0 [facility] Comment on above: Performed By: #### C BC ####[facility] Yfqqzdmats49[address] [place], [place] [address]DrKianna Tripathi MCHC (RBC) [Mass/Vol] 31.7 g/dL Normal 29.9-35.2 [facility] Comment on above: Performed By: #### C BC ####[facility] Nbajfawzpa047[address] [place], [place] [address]DrKianna Tripathi MCV (RBC) [Entitic vol] 95.6 fL Normal 81.0-99.0 [facility] Comment on above: Performed By: #### C BC ####[facility] Kytlpsqugn017[address] [place], [place] [address]DrKianna Tripathi MONO # 0.5 103/ul Normal 0.3-0.8 [facility] Comment on above: Performed By: #### C BC ####[facility] Nlngiabpru8[address] [place] [id number]. Airam Tripathi Monocytes/100 WBC (Bld) 7.1 % Normal 1.7-12.0 [facility] Comment on above: Performed By: #### C BC ####[facility] Snjeuaoczt[address]32 [place] [address]Dr. Airam Tripathi NEUT # 5.0 103/ul Normal 1.4-6.5 [facility] Comment on above: Performed By: #### C BC ####[facility] Ugwgaavcrp7599 [place] [address]Dr. Airam Tripathi Neutrophils/100 WBC (Bld) 71.1 % Normal 43.0-75.0 [facility] Comment on above: Performed By: #### C BC ####[facility] Cefdbfkhor27220[address] [place], [place] [address]Dr. Airam Tripathi Platelet mean volume (Bld) [Entitic vol] 8.2 fL Critically low 9.5-13.5 [facility] Comment on above: Performed By: #### C BC ####[facility] Tasobheuab4503 [place] [address]Dr. Airam Tripathi PLT 247 103/ul Normal 150-450 [facility] Comment on above: Performed By: #### C BC ####[facility] Zclhlhyyxx3364 [place] [phone]. Airam Tripathi RBC 2.74 106/ul Critically low 4.20-5.40 [facility] Comment on above: Performed By: #### C BC ####[facility] Fjtpuclyka[address] [place], [place] [id number]. Airam Tripathi WBC 7.1 103/ul Normal 4.0-11.0 [facility] Comment on above: Performed By: #### C BC ####[facility] Apushwwdbe770[address] [place], [place] [address]DrKianna Airam Tripathi CTA CHEST WO W CONon 022 CTA CHEST WO W CON Normal [facility] PROF 14(COMP METB)on Albumin [Mass/Vol] 2.6 g/dL Critically low 3.4-5.0 [facility] Comment on above: Performed By: #### C MP, BNP ####[facility] Xjpevozvkd9[address] [place] [address]Dr. Airam Tripathi Albumin/Globulin [Mass ratio] 0.8 {ratio} Normal [facility] Comment on above: Performed By: #### C MP, BNP ####[facility] Wjezgxivrf58[address] [place] [address]Dr. Airam Tripathi ALP [Catalytic activity/Vol] 130 U/L Critically high 46-116 [facility] Comment on above: Performed By: #### C MP, BNP ####[facility] Pfhwhhqjny0414[address] [place], [place] [address]Dr. Airam Tripathi ALT [Catalytic activity/Vol] 12 U/L Critically low 14-59 [facility] Comment on above: Performed By: #### C MP, BNP ####[facility] Ukumfbcjgl54[address] [place], [place] [address]Dr. Airam Tripathi Anion gap [Moles/Vol] 11.8 mmol/L Normal [facility] Comment on above: Performed By: #### C MP, BNP ####[facility] Qjxihxastm204[address] [place], [place] [address]Dr. Airam Tripathi AST [Catalytic activity/Vol] 22 U/L Normal 15-37 [facility] Comment on above: Performed By: #### C MP, BNP ####[facility] Bpannxcjvb707[address] [place], [place] [address]Dr. Airam Tripathi Bilirubin [Mass/Vol] 0.2 mg/dL Normal 0.2-1.0 [facility] Comment on above: Performed By: #### C MP, BNP ####[facility] Xygsyqjgup707[address] [place], [place] [address]Dr. Airam Tripathi Calcium [Mass/Vol] 8.0 mg/dL Critically low 8.5-10.1 [facility] Comment on above: Performed By: #### C MP, BNP ####[facility] Qockonzerx3895 [place] [address]Dr. Airam Tripathi Chloride [Moles/Vol] 104 mmol/L Normal 98-107 [facility] Comment on above: Performed By: #### C MP, BNP ####[facility] Wvytmulfyi9382 [place] [address]Dr. Airam Tripathi CO2 [Moles/Vol] 22.8 mmol/L Normal 21.0-32.0 [facility] Comment on above: Performed By: #### C MP, BNP ####[facility] Jkhbmycavg968[address] [place], [place] [address]Dr. Airam Tripathi Creatinine [Mass/Vol] 1.07 mg/dL Critically high 0.55-1.02 [facility] Comment on above: Performed By: #### C MP, BNP ####[facility] Jczymbzaen168[address] [place], [place] [address]Dr. Airam Tripathi EGFR-AF [place]ER >60 Normal >=60 [facility] Comment on above: Performed By: #### C MP, BNP ####[facility] Wjaiskpjox208[address] [place], [place] [address]Dr. Airam Tripathi EGFR-NON AF [place] 52 mL/min/1.73m2 Critically low >=60 [facility] Comment on above: Performed By: #### C MP, BNP ####[facility] Jcttrarjox7901[address] [place], [place] [address]Dr. Airam Tripathi Globulin (S) [Mass/Vol] 3.1 g/dL Normal [facility] Comment on above: Performed By: #### C MP, BNP ####[facility] Tlgwgwikfk54[address] [place], [place] [address]Dr. Airam Tripathi Glucose [Mass/Vol] 85 mg/dL Normal 74-106 [facility] Comment on above: Performed By: #### C MP, BNP ####[facility] Tyvpvdvzto764[address] [place], [place] [address]Dr. Airam Tripathi Potassium [Moles/Vol] 4.6 mmol/L Normal 3.5-5.1 [facility] Comment on above: Performed By: #### C MP, BNP ####[facility] Pkqundlued800[address] [place], [place] [address]Dr. Airam Tripathi Protein [Mass/Vol] 5.7 g/dL Critically low 6.4-8.2 [facility] Comment on above: Performed By: #### C MP, BNP ####[facility] Trkolugibc55400[address] [place], [place] [address]Dr. Airam Tripathi Sodium [Moles/Vol] 134 mmol/L Critically low 136-145 [facility] Comment on above: Performed By: #### C MP, BNP ####[facility] Jchigjigmi232[address] [place], [place] [address]Dr. Airam Tripathi Urea nitrogen [Mass/Vol] 24.0 mg/dL Critically high 7.0-18.0 [facility] Comment on above: Performed By: #### C MP, BNP ####[facility] Bwkcphyxpg507[address] [place], [place] [address]Dr. Airam Tripathi Urea nitrogen/Creatinine [Mass ratio] 22.4 mg/mg Normal [facility] Comment on above: Performed By: #### C MP, BNP ####[facility] Cuzusnomyg426[address] [place], [place] [address]Dr. Airam Tripathi BNPon 06-15-2022 Natriuretic peptide B (Bld) [Mass/Vol] 934.0 pg/mL Critically high <=900.0 [facility] Comment on above: Performed By: #### C MP, BNP ####[facility] Xepiahcaau505[address] [place], [place] [address]Dr. Airam Tripathi CBC AUTO DIFFon 06-15-2022 BASO # 0.0 103/ul Normal 0.0-0.1 [facility] Comment on above: Performed By: #### C BC ####[facility] Hetecanowk144[address] [place], [place] [address]Dr. Airam Tripathi Basophils/100 WBC (Bld) 0.2 % Normal 0.2-2.0 [facility] Comment on above: Performed By: #### C BC ####[facility] Hnihcpefyz8527 [place] [phone]. Airam Tripathi EO # 0.1 103/ul Normal 0.0-0.7 [facility] Comment on above: Performed By: #### C BC ####[facility] Rfpyrozham2165 [place] [address]Dr. Airam Tripathi Eosinophils/100 WBC (Bld) 2.1 % Normal 0.9-7.0 [facility] Comment on above: Performed By: #### C BC ####[facility] Vjxhcbchls4883 [place] [address]Dr. Airam Tripathi Erythrocyte distribution width (RBC) [Ratio] 12.9 % Normal 11.0-15.0 [facility] Comment on above: Performed By: #### C BC ####[facility] Rouquyaxbj683[address] [place], [place] [address]Dr. Airam Tripathi Hematocrit (Bld) [Volume fraction] 24.9 % Critically low 36.0-48.0 [facility] Comment on above: Performed By: #### C BC ####[facility] Fnisqhtode596[address] [place], [place] [address]Dr. Airam Tripathi Hemoglobin (Bld) [Mass/Vol] 7.9 g/dL Critically low 12.0-16.0 [facility] Comment on above: Performed By: #### C BC ####[facility] Dvrsfmbtdc032[address] [place], [place] [address]Dr. Airam Tripathi IG # 0.05 10e3/ul Critically high 0.00-0.03 [facility] Comment on above: Performed By: #### C BC ####[facility] Drvfpklaxq873[address] [place], [place] [address]Dr. Airam Tripathi IG % 0.8 % Critically high 0.0-0.5 [facility] Comment on above: Performed By: #### C BC ####[facility] Szqjrdtjet289[address] [place], [place] [address]Dr. Selenaneil Tripathi LYMPH # 0.9 103/ul Critically low 1.2-3.8 [facility] Comment on above: Performed By: #### C BC ####[facility] Tkxriqdilr2624 [place] [id number]. Airam Tripathi Lymphocytes/100 WBC (Bld) 13.7 % Critically low 20.5-60.0 [facility] Comment on above: Performed By: #### C BC ####[facility] Jhzfemxrqw7277 [place] [phone]. Airam Tripathi MANUAL DIFF REQ NO Normal [facility] Comment on above: Performed By: #### C BC ####[facility] Lhmyutxyih3570 [place] [phone]. Airam Tripathi MCH (RBC) [Entitic mass] 30.2 pg Normal 26.7-34.0 [facility] Comment on above: Performed By: #### C BC ####[facility] Wlkcmwyqia1192 [place] [address]Dr. Airam Tripathi MCHC (RBC) [Mass/Vol] 31.7 g/dL Normal 29.9-35.2 [facility] Comment on above: Performed By: #### C BC ####[facility] Xkxxldxbef8375 [place] [phone]. Airam Tripathi MCV (RBC) [Entitic vol] 95.0 fL Normal 81.0-99.0 [facility] Comment on above: Performed By: #### C BC ####[facility] Ivbzmrjshk6573 [place] [phone]. Airam Deuce MONO # 0.4 103/ul Normal 0.3-0.8 [facility] Comment on above: Performed By: #### C BC ####[facility] Dpalxhomqb9677 [place] [phone]. Airam Tripathi Monocytes/100 WBC (Bld) 6.7 % Normal 1.7-12.0 [facility] Comment on above: Performed By: #### C BC ####[facility] Ygruzjowpx2017 [place] [address]Dr. Airam Tripathi NEUT # 5.0 103/ul Normal 1.4-6.5 [facility] Comment on above: Performed By: #### C BC ####[facility] Kpicsxkssw4083 [place] [phone]. Airam Tripathi Neutrophils/100 WBC (Bld) 76.5 % Critically high 43.0-75.0 [facility] Comment on above: Performed By: #### C BC ####[facility] Byevvevltq0486 [place] [phone]. Airam Tripathi Platelet mean volume (Bld) [Entitic vol] 8.4 fL Critically low 9.5-13.5 [facility] Comment on above: Performed By: #### C BC ####[facility] Zmoxcvivzw5218 [place] [phone]. Airam Tripathi PLT 202 103/ul Normal 150-450 [facility] Comment on above: Performed By: #### C BC ####[facility] Ovcoznbygi[address] [place] [address]Dr. Airam Deuce RBC 2.62 106/ul Critically low 4.20-5.40 [facility] Comment on above: Performed By: #### C BC ####[facility] Fcrwerqgad5321 [place] [address]Dr. Airam Tripathi WBC 6.6 103/ul Normal 4.0-11.0 [facility] Comment on above: Performed By: #### C BC ####[facility] Tjwnuajudj7672 [place] [address]Dr. Airam Tripathi OSMOLALITYon 06-15-2022 Osmolality [Osmolality] 269 mosm/kg Critically low 275-295 [facility] Comment on above: Performed By: #### O SMO ####[facility] Liomftvmun0490 [place] [address]Dr. Selenaneil Tripathi PROF 14(COMP METB)on 022 Albumin [Mass/Vol] 2.5 g/dL Critically low 3.4-5.0 [facility] Comment on above: Performed By: #### C MP, BNP ####[facility] Cwarysgyob4068 [place] [address]Dr. Airam Tripathi Albumin/Globulin [Mass ratio] 0.9 {ratio} Normal [facility] Comment on above: Performed By: #### C MP, BNP ####[facility] Lxvieohcow405[address] [place], [place] [address]Dr. Airam Tripathi ALP [Catalytic activity/Vol] 128 U/L Critically high 46-116 [facility] Comment on above: Performed By: #### C MP, BNP ####[facility] Wzzjjraooa497[address] [place], [place] [address]Dr. Airam Tripathi ALT [Catalytic activity/Vol] 14 U/L Normal 14-59 [facility] Comment on above: Performed By: #### C MP, BNP ####[facility] Cezaeuawuk023[address] [place], [place] [address]Dr. Airam Tripathi Anion gap [Moles/Vol] 10.4 mmol/L Normal [facility] Comment on above: Performed By: #### C MP, BNP ####[facility] Psjrizvjrb196[address] [place], [place] [address]Dr. Airam Tripathi AST [Catalytic activity/Vol] 23 U/L Normal 15-37 [facility] Comment on above: Performed By: #### C MP, BNP ####[facility] Fqifhhpelz4613[address] [place], [place] [address]Dr. Airam Tripathi Bilirubin [Mass/Vol] 0.2 mg/dL Normal 0.2-1.0 [facility] Comment on above: Performed By: #### C MP, BNP ####[facility] Whpxgtuxhd828[address] [place], [place] [address]Dr. Airam Tripathi Calcium [Mass/Vol] 7.4 mg/dL Critically low 8.5-10.1 [facility] Comment on above: Performed By: #### C MP, BNP ####[facility] Qdeoegnfdc22[address] [place], [place] [address]Dr. Airam Tripathi Chloride [Moles/Vol] 99 mmol/L Normal 98-107 [facility] Comment on above: Performed By: #### C MP, BNP ####[facility] Vspugldjcx133[address] [place], [place] [address]Dr. Airam Tripathi CO2 [Moles/Vol] 24.1 mmol/L Normal 21.0-32.0 [facility] Comment on above: Performed By: #### C MP, BNP ####[facility] Extxwkkkdy6512 [place] [address]Dr. Airam Tripathi Creatinine [Mass/Vol] 1.45 mg/dL Critically high 0.55-1.02 [facility] Comment on above: Performed By: #### C MP, BNP ####[facility] Wwhjpqpniv1694 [place] [address]Dr. Airam Deuce EGFR-AF [place] 45 mL/min/1.73m2 Critically low >=60 [facility] Comment on above: Performed By: #### C MP, BNP ####[facility] Cgsfxyviss6570 [place] [address]Dr. Airam Deuce EGFR-NON AF [place] 37 mL/min/1.73m2 Critically low >=60 [facility] Comment on above: Performed By: #### C MP, BNP ####[facility] Wkjznouvzn86[address] [place], [place] [address]Dr. Airam Tripathi Globulin (S) [Mass/Vol] 2.8 g/dL Normal [facility] Comment on above: Performed By: #### C MP, BNP ####[facility] Zxhbnbvnbv78280[address] [place], [place] [address]Dr. Selenaneil Deuce Glucose [Mass/Vol] 82 mg/dL Normal 74-106 [facility] Comment on above: Performed By: #### C MP, BNP ####[facility] Wkebvzilcn657[address] [place], [place] [address]Dr. Airam Tripathi Potassium [Moles/Vol] 4.5 mmol/L Normal 3.5-5.1 [facility] Comment on above: Performed By: #### C MP, BNP ####[facility] Sxuclimgve8599[address] [place], [place] [address]Dr. Airam Tripathi Protein [Mass/Vol] 5.3 g/dL Critically low 6.4-8.2 [facility] Comment on above: Performed By: #### C MP, BNP ####[facility] Vdsvfufnsp582[address] [place], [place] [address]Dr. Airam Tripathi Sodium [Moles/Vol] 129 mmol/L Critically low 136-145 [facility] Comment on above: Performed By: #### C MP, BNP ####[facility] Zbchijbgwp89[address] [place], [place] [address]Dr. Selenaneil Tripathi Urea nitrogen [Mass/Vol] 35.0 mg/dL Critically high 7.0-18.0 [facility] Comment on above: Performed By: #### C MP, BNP ####[facility] Wcoaaisrgu034[address] [place], [place] [address]Dr. Airam Tripathi Urea nitrogen/Creatinine [Mass ratio] 24.1 mg/mg Normal [facility] Comment on above: Performed By: #### C MP, BNP ####[facility] Focfnjvero319[address] [place], [place] [address]Dr. Airam Tripathi T3, TOTAL (TRIIODOTHYRONINE) on 06-15-2022 T3, TOTAL 113 ng/dL Normal 71-180 [facility] Comment on above: Performed By: #### T 3TOTAL ####[facility] Gfyjfeqrny689[address] [place], [place] [address]Dr. Airam Tripathi BNPon 06-14-2022 Natriuretic peptide B (Bld) [Mass/Vol] 1024.0 pg/mL Critically high <=900.0 [facility] Comment on above: Performed By: #### B ROENTGENOLOGIST, CMP ####[facility] Pzugjczqqj729[address] [place], [place] [address]Dr. Airam Tripathi CARDIAC CONSUELO 3-6on 2 CK [Catalytic activity/Vol] 116 U/L Normal 26-192 [facility] Comment on above: Performed By: #### C MREP ####[facility] Frazftyjpc17[address] [place], [place] [address]Dr. Airam Tripathi CK.MB [Mass/Vol] ng/mL Normal <=3.60 [facility] Comment on above: Performed By: #### C MREP ####[facility] Zaqkvjpkon8[address] [place], [place] [address]Dr. Airam Tripathi HSTROP 6.0 pg/mL Normal 4.0-51.3 [facility] Comment on above: Result Comment: CUT- OFF POINTS HAVE BEEN ESTABLISHED BASED ON THE FOURTH UNIVERSAL DEFINITIONS OF MYOCARDIALINFARCTION. THE UPPER REFERENCE LIMIT (URL) OF TROPONIN, DEFINED THE 99TH PERCENTILE OFcTnI DISTRIBUTION IN A REFERENCE POPULATION, HAS BEEN CONFIRMED THE DECISION THRESHOLDFOR [place] DIAGNOSIS. Performed By: #### C MREP ####[facility] Taszgngrxb7535 [place] [address]Dr. Airam Tripathi CBC AUTO DIFFon 06-14-2022 BASO # 0.0 103/ul Normal 0.0-0.1 [facility] Comment on above: Performed By: #### C BC ####[facility] Saxfvwaokr[address] [place], [place] [address]Dr. Airam Tripathi Basophils/100 WBC (Bld) 0.3 % Normal 0.2-2.0 [facility] Comment on above: Performed By: #### C BC ####[facility] Bsfjkyvokz88[address] [place], [place] [address]Dr. Airam Tripathi EO # 0.2 103/ul Normal 0.0-0.7 [facility] Comment on above: Performed By: #### C BC ####[facility] Mvwbdicmoo215[address] [place], [place] [address]Dr. Airam Tripathi Eosinophils/100 WBC (Bld) 2.0 % Normal 0.9-7.0 [facility] Comment on above: Performed By: #### C BC ####[facility] Sppiqqhmym856[address] [place], [place] [address]Dr. Airam Tripathi Erythrocyte distribution width (RBC) [Ratio] 12.8 % Normal 11.0-15.0 [facility] Comment on above: Performed By: #### C BC ####[facility] Xscygslyuk69[address] [place], [place] [address]DrKianna Tripathi Hematocrit (Bld) [Volume fraction] 27.4 % Critically low 36.0-48.0 [facility] Comment on above: Performed By: #### C BC ####[facility] Tdwqmbprnh958[address] [place], [place] [address]Dr. Airam Tripathi Hemoglobin (Bld) [Mass/Vol] 8.7 g/dL Critically low 12.0-16.0 [facility] Comment on above: Performed By: #### C BC ####[facility] Sjzqmyqqhm3131 [place] [address]DrKianna Airam Tripathi IG # 0.11 10e3/ul Critically high 0.00-0.03 [facility] Comment on above: Performed By: #### C BC ####[facility] Hfkvafljxf0625 [place] [address]DrKianna Airam Deuce IG % 1.1 % Critically high 0.0-0.5 [facility] Comment on above: Performed By: #### C BC ####[facility] Rgaagbopkc[address] [place], [place] [address]DrKianna Tripathi LYMPH # 0.9 103/ul Critically low 1.2-3.8 [facility] Comment on above: Performed By: #### C BC ####[facility] Xvjukfxclu25[address] [place], [place] [address]DrKianna Tripathi Lymphocytes/100 WBC (Bld) 9.7 % Critically low 20.5-60.0 [facility] Comment on above: Performed By: #### C BC ####[facility] Voqlfimfgu360[address] [place], [place] [address]DrKianna Selenaneil Tripathi MANUAL DIFF REQ NO Normal [facility] Comment on above: Performed By: #### C BC ####[facility] Gcmocvemxu5495 [place] [address]DrKianna Airam Deuce MCH (RBC) [Entitic mass] 30.0 pg Normal 26.7-34.0 [facility] Comment on above: Performed By: #### C BC ####[facility] Taqnztfqqj3303 [place] [address]DrKianna Airam Deuce MCHC (RBC) [Mass/Vol] 31.8 g/dL Normal 29.9-35.2 [facility] Comment on above: Performed By: #### C BC ####[facility] Huwybkinct9782 [place] [address]DrKianna Tripathi MCV (RBC) [Entitic vol] 94.5 fL Normal 81.0-99.0 [facility] Comment on above: Performed By: #### C BC ####[facility] Hhhxkemmmv0239 [place] [id number]. Airam Tripathi MONO # 0.6 103/ul Normal 0.3-0.8 [facility] Comment on above: Performed By: #### C BC ####[facility] Gxomphpxce2096 [place] [id number]. Airam Tripathi Monocytes/100 WBC (Bld) 5.7 % Normal 1.7-12.0 [facility] Comment on above: Performed By: #### C BC ####[facility] Ywlrutgqyc6259 [place] [address]Dr. Airam Tripathi NEUT # 7.8 103/ul Critically high 1.4-6.5 [facility] Comment on above: Performed By: #### C BC ####[facility] Mkjlfkdhjk7197 [place] [address]Dr. Airam Tripathi Neutrophils/100 WBC (Bld) 81.2 % Critically high 43.0-75.0 [facility] Comment on above: Performed By: #### C BC ####[facility] Pzptrulptx3668 [place] [address]Dr. Airam Tripathi Platelet mean volume (Bld) [Entitic vol] 8.6 fL Critically low 9.5-13.5 [facility] Comment on above: Performed By: #### C BC ####[facility] Tncqcaziox1265 [place] [address]Dr. Airam Tripathi PLT 283 103/ul Normal 150-450 [facility] Comment on above: Performed By: #### C BC ####[facility] Zmlvyamkel7184 [place] [id number]. Airam Tripathi RBC 2.90 106/ul Critically low 4.20-5.40 [facility] Comment on above: Performed By: #### C BC ####[facility] Lnmhuvoynw4628 [place] [id number]. Airam Tripathi WBC 9.6 103/ul Normal 4.0-11.0 [facility] Comment on above: Performed By: #### C BC ####[facility] Yswryrjspl4537 [place] [address]Dr. Airam Tripathi OSMOLALITYon 06-14-2022 Osmolality [Osmolality] 273 mosm/kg Critically low 275-295 [facility] Comment on above: Performed By: #### O SMO ####[facility] Ydzndtjibt5689 [place] [address]Dr. Airam Tripathi PROF 14(COMP METB)on 022 Albumin [Mass/Vol] 3.2 g/dL Critically low 3.4-5.0 [facility] Comment on above: Performed By: #### B ROENTGENOLOGIST, CMP ####[facility] Vzodunkdxs[address] [place], [place] [address]Dr. Airam Tripathi Albumin/Globulin [Mass ratio] 1.0 {ratio} Normal [facility] Comment on above: Performed By: #### B ROENTGENOLOGIST, CMP ####[facility] Weobrymkgm024[address] [place], [place] [address]Dr. Airam Tripathi ALP [Catalytic activity/Vol] 154 U/L Critically high 46-116 [facility] Comment on above: Performed By: #### B ROENTGENOLOGIST, CMP ####[facility] Rcbagpacxy[address] [place] [id number]. Airam Tripathi ALT [Catalytic activity/Vol] 17 U/L Normal 14-59 [facility] Comment on above: Performed By: #### B ROENTGENOLOGIST, CMP ####[facility] [address]afs[address] [place] [address]Dr. Airam Tripathi Anion gap [Moles/Vol] 12.0 mmol/L Normal [facility] Comment on above: Performed By: #### B ROENTGENOLOGIST, CMP ####[facility] Iqkkqgcoaa[address] [place], [place] [address]Dr. Airam Tripathi AST [Catalytic activity/Vol] 25 U/L Normal 15-37 [facility] Comment on above: Performed By: #### B ROENTGENOLOGIST, CMP ####[facility] Mbhohdrzyy[address] [place], [place] [address]Dr. Airam Tripathi Bilirubin [Mass/Vol] 0.3 mg/dL Normal 0.2-1.0 [facility] Comment on above: Performed By: #### B ROENTGENOLOGIST, CMP ####[facility] Vnfaorilrw[address] [place], [place] [address]Dr. Airam Tripathi Calcium [Mass/Vol] 7.6 mg/dL Critically low 8.5-10.1 [facility] Comment on above: Performed By: #### B ROENTGENOLOGIST, CMP ####[facility] Pxyyhlpnfk[address] [place], [place] [address]Dr. Airam Tripathi Chloride [Moles/Vol] 92 mmol/L Critically low 98-107 [facility] Comment on above: Performed By: #### B ROENTGENOLOGIST, CMP ####[facility] Qtfiltgkvx[address] [place], [place] [address]Dr. Airam Tripathi CO2 [Moles/Vol] 25.2 mmol/L Normal 21.0-32.0 [facility] Comment on above: Performed By: #### B ROENTGENOLOGIST, CMP ####[facility] Rpkreewllw[address] [place], [place] [address]Dr. Airam Tripathi Creatinine [Mass/Vol] 1.83 mg/dL Critically high 0.55-1.02 [facility] Comment on above: Performed By: #### B ROENTGENOLOGIST, CMP ####[facility] Dljnarvaet[address] [place], [place] [address]Dr. Selenaneil Deuce EGFR-AF [place] 34 mL/min/1.73m2 Critically low >=60 [facility] Comment on above: Performed By: #### B ROENTGENOLOGIST, CMP ####[facility] Dmlivxlnrk[address] [place], [place] [address]Dr. Selenaneil Deuce EGFR-NON AF [place] 28 mL/min/1.73m2 Critically low >=60 [facility] Comment on above: Performed By: #### B ROENTGENOLOGIST, CMP ####[facility] Wsnsnmxgwo924[address] [place], [place] [address]Dr. Selenaneil Deuce Globulin (S) [Mass/Vol] 3.1 g/dL Normal [facility] Comment on above: Performed By: #### B ROENTGENOLOGIST, CMP ####[facility] Wtbvmsgpnx0[address] [place] [address]Dr. Airam Tripathi Glucose [Mass/Vol] 77 mg/dL Normal 74-106 [facility] Comment on above: Performed By: #### B ROENTGENOLOGIST, CMP ####[facility] Duhzfeziwz[address] [place], [place] [address]Dr. Selenaneil Tripathi Potassium [Moles/Vol] 4.2 mmol/L Normal 3.5-5.1 [facility] Comment on above: Performed By: #### B ROENTGENOLOGIST, CMP ####[facility] Haoftwtcfw[address] [place], [place] [address]Dr. Selenaneil Tripathi Protein [Mass/Vol] 6.3 g/dL Critically low 6.4-8.2 [facility] Comment on above: Performed By: #### B ROENTGENOLOGIST, CMP ####[facility] Ewroobzehh[address] [place], [place] [address]Dr. Selenaneil Tripathi Sodium [Moles/Vol] 125 mmol/L Critically low 136-145 [facility] Comment on above: Performed By: #### B ROENTGENOLOGIST, CMP ####[facility] Usbtxhaoib[address] [place], [place] [address]Dr. Airam Tripathi Urea nitrogen [Mass/Vol] 35.0 mg/dL Critically high 7.0-18.0 [facility] Comment on above: Performed By: #### B ROENTGENOLOGIST, CMP ####[facility] Rmcorhwkwk[address] [place], [place] [address]Dr. Airam Tripathi Urea nitrogen/Creatinine [Mass ratio] 19.1 mg/mg Normal [facility] Comment on above: Performed By: #### B ROENTGENOLOGIST, CMP ####[facility] Wmujewzpjm13[address] [place], [place] [address]Dr. Airam Tripathi UA RANDOM W/MICROSCOPICon BACTERIA TRACE Abnormal NONE SEEN [facility] Comment on above: Performed By: #### U AMIC ####[facility] Dpqgjeopfx277[address] [place], [place] [address]Dr. Airam Tripathi Bilirubin Ql (U) Negative Normal NEGATIVE [facility] Comment on above: Performed By: #### U AMIC ####[facility] Ltwbdizzol[address] [place] [address]Dr. Airam Tripathi CAST NONE SEEN Normal NONE SEEN [facility] Comment on above: Performed By: #### U AMIC ####[facility] Yeeqtaftxu424[address] [place], [place] [address]Dr. Airam Tripathi Clarity (U) CLEAR Normal CLEAR [facility] Comment on above: Performed By: #### U AMIC ####[facility] Tbkblavhqt[address] [place] [address]Dr. Airam Tripathi Color (U) LT. YELLOW Normal YELLOW [facility] Comment on above: Performed By: #### U AMIC ####[facility] Ucpjrmspas[address] [place], [place] [address]Dr. Airam Tripathi Crystals LM Nom (Urine sed) NONE SEEN Normal NONE SEEN [facility] Comment on above: Performed By: #### U AMIC ####[facility] Trjllfqtri[address] [place], [place] [address]Dr. Airam Tripathi Epithelial cells LM Ql (Urine sed) FEW Abnormal NONE SEEN /RARE [facility] Comment on above: Performed By: #### U AMIC ####[facility] Lqvegcbbqp102[address] [place], [place] [address]Dr. Airam Tripathi Glucose Ql (U) Negative Normal NEGATIVE [facility] Comment on above: Performed By: #### U AMIC ####[facility] Rbakwdcudr45[address] [place] [address]Dr. Airam Tripathi Hemoglobin Ql (U) Negative Normal NEGATIVE [facility] Comment on above: Performed By: #### U AMIC ####[facility] Rpnhxuzfqq014[address] [place], [place] [address]Dr. Airam Tripathi Ketones Ql (U) Negative Normal NEGATIVE [facility] Comment on above: Performed By: #### U AMIC ####[facility] Adqxyzfikx239[address] [place], [place] [address]Dr. Airam Tripathi LEUKOCYTES MODERATE Abnormal NEGATIVE [facility] Comment on above: Performed By: #### U AMIC ####[facility] Yfogeozeab[address] [place], [place] [address]Dr. Yilan Rtipathi MUCOUS NONE SEEN Normal NONE SEEN [facility] Comment on above: Performed By: #### U AMIC ####[facility] Tjrvyoizig[address] [place] [address]Dr. Airam Tripathi Nitrite Ql (U) Negative Normal NEGATIVE [facility] Comment on above: Performed By: #### U AMIC ####[facility] Ymeyutoapb027[address] [place] [address]Dr. Airam Tripathi pH (U) 5.5 [pH] Normal 5-9 [facility] Comment on above: Performed By: #### U AMIC ####[facility] Bqkcnydokh[address] [place] [address]Dr. Airam Tripathi RBC 0-2 Normal 0-2 [facility] Comment on above: Performed By: #### U AMIC ####[facility] Ilbwjzkyng[address] [place], [place] [address]Dr. Airam rTipathi SPEC GRAVITY 1.020 Normal 1.005-<=1. 025 [facility] Comment on above: Performed By: #### U AMIC ####[facility] Ktpecnpnfx[address] [place], [place] [address]Dr. Airam Tripathi UA PROTEIN Negative Normal NEGATIVE/ TRACE [facility] Comment on above: Performed By: #### U AMIC ####[facility] Gybftalptj449[address] [place], [place] [address]Dr. Selenaneil Tripathi Urobilinogen Qn (U) 0.2 {Ligia'U}/dL Normal 0.2 - 1. 0 [facility] Comment on above: Performed By: #### U AMIC ####[facility] Iporwuabro[address] [place], [place] [address]Dr. Airam Tripathi WBC 5-10 Abnormal NONE SEEN [facility] Comment on above: Performed By: #### U AMIC ####[facility] Qpqwvtahpt[address] [place], [place] [address]Dr. Selenaneil Tripathi BNPon 06-13-2022 Natriuretic peptide B (Bld) [Mass/Vol] 1496.0 pg/mL Critically high <=900.0 [facility] Comment on above: Performed By: #### T 4, BNP, MG, TSH, CMADM, CRP, CMP ####[facility] Ouelbrzfhd[address] [place] [id number]. Airam Tripathi CARDIAC CONSUELO 3-6on 2 CK [Catalytic activity/Vol] 125 U/L Normal 26-192 [facility] Comment on above: Performed By: #### C MREP ####[facility] Enzzardiqi7593 [place] [id number]. Airam Tripathi CK.MB [Mass/Vol] ng/mL Normal <=3.60 [facility] Comment on above: Performed By: #### C MREP ####[facility] Yhflzzllcm[address] [place] [address]Dr. Airam Tripathi HSTROP 5.8 pg/mL Normal 4.0-51.3 [facility] Comment on above: Result Comment: CUT- OFF POINTS HAVE BEEN ESTABLISHED BASED ON THE FOURTH UNIVERSAL DEFINITIONS OF MYOCARDIALINFARCTION. THE UPPER REFERENCE LIMIT (URL) OF TROPONIN, DEFINED THE 99TH PERCENTILE OFcTnI DISTRIBUTION IN A REFERENCE POPULATION, HAS BEEN CONFIRMED THE DECISION THRESHOLDFOR [place] DIAGNOSIS. Performed By: #### C MREP ####[facility] Ckinwbnsiq[address] [place] [address]Dr. Airam Tripathi CARDIAC CONSUELO ADMITon 022 CK [Catalytic activity/Vol] 121 U/L Normal 26-192 [facility] Comment on above: Performed By: #### T 4, BNP, MG, TSH, CMADM, CRP, CMP ####[facility] Jnwbkfcjoy7316 [place] [id number]. Airam Tripathi CK.MB [Mass/Vol] 3.06 ng/mL Normal <=3.60 [facility] Comment on above: Performed By: #### T 4, BNP, MG, TSH, CMADM, CRP, CMP ####[facility] Kwqfsiymzy[address] [place] [address]Dr. Airam Tripathi HSTROP 6.9 pg/mL Normal 4.0-51.3 [facility] Comment on above: Result Comment: CUT- OFF POINTS HAVE BEEN ESTABLISHED BASED ON THE FOURTH UNIVERSAL DEFINITIONS OF MYOCARDIALINFARCTION. THE UPPER REFERENCE LIMIT (URL) OF TROPONIN, DEFINED THE 99TH PERCENTILE OFcTnI DISTRIBUTION IN A REFERENCE POPULATION, HAS BEEN CONFIRMED THE DECISION THRESHOLDFOR VT DIAGNOSIS. Performed By: #### T 4, BNP, MG, TSH, CMADM, CRP, CMP ####[facility] Rshmhokmyd5[address] [place] [address]Dr. Airam Tripathi KATHY 124 ng/mL Critically high 9-82 [facility] Comment on above: Performed By: #### T 4, BNP, MG, TSH, CMADM, CRP, CMP ####[facility] Magdzcxzrw[address] [place] [address]Dr. Airam Tripathi CBC AUTO DIFFon 06-13-2022 BASO # 0.0 103/ul Normal 0.0-0.1 [facility] Comment on above: Performed By: #### C BC ####[facility] Crmgfrzpml[address] [place], [place] [address]Dr. Airam Tripathi Basophils/100 WBC (Bld) 0.2 % Normal 0.2-2.0 [facility] Comment on above: Performed By: #### C BC ####[facility] Negzvxueit134[address] [place], [place] [address]Dr. Airam Tripathi EO # 0.2 103/ul Normal 0.0-0.7 [facility] Comment on above: Performed By: #### C BC ####[facility] Qckfnyiapf2916[address] [place], [place] [address]Dr. Airam Tripathi Eosinophils/100 WBC (Bld) 1.5 % Normal 0.9-7.0 [facility] Comment on above: Performed By: #### C BC ####[facility] Grjxfqbmjn216[address] [place], [place] [address]Dr. Airam Tripathi Erythrocyte distribution width (RBC) [Ratio] 12.7 % Normal 11.0-15.0 [facility] Comment on above: Performed By: #### C BC ####[facility] Tzjtbyhirt[address] [place], [place] [address]Dr. Airam Tripathi Hematocrit (Bld) [Volume fraction] 30.0 % Critically low 36.0-48.0 [facility] Comment on above: Performed By: #### C BC ####[facility] Ggkeqeewsw[address] [place] [address]Dr. Airam Tripathi Hemoglobin (Bld) [Mass/Vol] 9.6 g/dL Critically low 12.0-16.0 [facility] Comment on above: Performed By: #### C BC ####[facility] Pxjidhkhef[address] [place] [address]Dr. Airam Tripathi IG # 0.11 10e3/ul Critically high 0.00-0.03 [facility] Comment on above: Performed By: #### C BC ####[facility] Iuxrdlfapo[address] [place], [place] [address]Dr. Airam Tripathi IG % 1.1 % Critically high 0.0-0.5 [facility] Comment on above: Performed By: #### C BC ####[facility] Hmihaczako[address] [place], [place] [address]Dr. Airam Tripathi LYMPH # 1.5 103/ul Normal 1.2-3.8 [facility] Comment on above: Performed By: #### C BC ####[facility] Otmbmehset[address] [place], [place] [address]Dr. Airam Tripathi Lymphocytes/100 WBC (Bld) 14.9 % Critically low 20.5-60.0 [facility] Comment on above: Performed By: #### C BC ####[facility] Jlgmcqkeqc[address] [place], [place] [address]Dr. Airam Tripathi MANUAL DIFF REQ NO Normal [facility] Comment on above: Performed By: #### C BC ####[facility] Nzvtcdjkhf82[address] [place], [place] [address]Dr. Airam Tripathi MCH (RBC) [Entitic mass] 30.0 pg Normal 26.7-34.0 [facility] Comment on above: Performed By: #### C BC ####[facility] Ttaibwwkor67[address] [place], [place] [address]Dr. Airam Tripathi MCHC (RBC) [Mass/Vol] 32.0 g/dL Normal 29.9-35.2 [facility] Comment on above: Performed By: #### C BC ####[facility] Vrlwpzcost4610 [place] [id number]. Airam Tripathi MCV (RBC) [Entitic vol] 93.8 fL Normal 81.0-99.0 [facility] Comment on above: Performed By: #### C BC ####[facility] Lfqkbtgjve7943 [place] [id number]. Airam Tripathi MONO # 0.8 103/ul Normal 0.3-0.8 [facility] Comment on above: Performed By: #### C BC ####[facility] Tolpnmpfie3824 [place] [id number] Airam Deuce Monocytes/100 WBC (Bld) 7.3 % Normal 1.7-12.0 [facility] Comment on above: Performed By: #### C BC ####[facility] Gjyjxqfttq[address] [place], [place] [address]Dr. Airam Tripathi NEUT # 7.8 103/ul Critically high 1.4-6.5 [facility] Comment on above: Performed By: #### C BC ####[facility] Qppenjynci[address] [place], [place] [id number]. Airam Deuce Neutrophils/100 WBC (Bld) 75.0 % Normal 43.0-75.0 [facility] Comment on above: Performed By: #### C BC ####[facility] Bl[address]vbqphw[address] [place], [place] [id number]. Airam Deuce Platelet mean volume (Bld) [Entitic vol] 9.1 fL Critically low 9.5-13.5 [facility] Comment on above: Performed By: #### C BC ####[facility] C[address]xaqfxc[address] [place], [place] [id number]. Airam Deuce PLT 341 103/ul Normal 150-450 [facility] Comment on above: Performed By: #### C BC ####[facility] Uzigxhdhal[address] [place] [id number] Tripathi RBC 3.20 106/ul Critically low 4.20-5.40 [facility] Comment on above: Performed By: #### C BC ####[facility] Xijgftuaud4[address] [place], [place] [address]Tx. Airam Tripathi WBC 10.4 103/ul Normal 4.0-11.0 [facility] Comment on above: Performed By: #### C BC ####[facility] Fedzjaxxmw6694 [place], [place] [address]Is. Airam Tripathi CRPon 06-13-2022 CRP [Mass/Vol] mg/L Normal <=1.0 [facility] Comment on above: Performed By: #### T 4, BNP, MG, TSH, CMADM, CRP, CMP ####[facility] Jtatepczht46[address] [place], [place] [address]At. Airam Tri[address] CT HEAD WO CONon 06-13-2022 CT HEAD WO CON Normal [facility] Covid-19 PCR (CVDTB)on 05-26 SARS-CoV-2 (COVID-19) RNA MIKE+probe Ql (Unsp spec) Not detected Normal NOT DETECTED [facility] Comment on above: Result Comment: When diagnostic [...] for this test is supported by the [employer] of [employer] and Human Service's declaration that [...] Performed By: #### C VDTBH ####[facility] Giyamgmect8716 [place], [place] [address]Uy. Airam Tripathi LACTATE/LACTIC ACIDon 2021 Lactate [Moles/Vol] 0.5 mmol/L Normal 0.4-1.9 [facility] Comment on above: Performed By: #### L ACT ####[facility] Somkfsejud[address] [place] [address]Dr. Airam Tripathi MAGNESIUMon 06-13-2022 Magnesium [Mass/Vol] 1.9 mg/dL Normal 1.8-2.4 [facility] Comment on above: Performed By: #### T 4, BNP, MG, TSH, CMADM, CRP, CMP ####[facility] Iozecvlqzn[address] [place] [address]Dr. Airam Tripathi PROF 14(COMP METB)on 022 Albumin [Mass/Vol] 3.8 g/dL Normal 3.4-5.0 [facility] Comment on above: Performed By: #### T 4, BNP, MG, TSH, CMADM, CRP, CMP ####[facility] Vxotanliot[address] [place], [place] [address]Dr. Airam Tripathi Albumin/Globulin [Mass ratio] 1.1 {ratio} Normal [facility] Comment on above: Performed By: #### T 4, BNP, MG, TSH, CMADM, CRP, CMP ####[facility] Mhpwonvrua[address] [place], [place] [address]Dr. Airam Tripathi ALP [Catalytic activity/Vol] 161 U/L Critically high 46-116 [facility] Comment on above: Performed By: #### T 4, BNP, MG, TSH, CMADM, CRP, CMP ####[facility] Gqrmadxnkp34[address] [place] [address]Dr. Airam rTipathi ALT [Catalytic activity/Vol] 21 U/L Normal 14-59 [facility] Comment on above: Performed By: #### T 4, BNP, MG, TSH, CMADM, CRP, CMP ####[facility] Ijdmvxyqht2931 [place] [address]Dr. Airam Tripathi Anion gap [Moles/Vol] 12.6 mmol/L Normal [facility] Comment on above: Performed By: #### T 4, BNP, MG, TSH, CMADM, CRP, CMP ####[facility] Hqvuklzpqw11[address] [place] [address]Dr. Airam Tripathi AST [Catalytic activity/Vol] 30 U/L Normal 15-37 [facility] Comment on above: Performed By: #### T 4, BNP, MG, TSH, CMADM, CRP, CMP ####[facility] Ywpioxscdg6058 [place] [address]Dr. Airam Tripathi Bilirubin [Mass/Vol] 0.3 mg/dL Normal 0.2-1.0 [facility] Comment on above: Performed By: #### T 4, BNP, MG, TSH, CMADM, CRP, CMP ####[facility] Siekgpzkto75[address] [place], [place] [address]Dr. Airam Tripathi Calcium [Mass/Vol] 8.8 mg/dL Normal 8.5-10.1 [facility] Comment on above: Performed By: #### T 4, BNP, MG, TSH, CMADM, CRP, CMP ####[facility] Nprgvlrlzj239[address] [place], [place] [address]Dr. Airma Tripathi Chloride [Moles/Vol] 91 mmol/L Critically low 98-107 [facility] Comment on above: Performed By: #### T 4, BNP, MG, TSH, CMADM, CRP, CMP ####[facility] Snhipslqjb62[address] [place], [place] [address]Dr. Airam Tripathi CO2 [Moles/Vol] 26.9 mmol/L Normal 21.0-32.0 [facility] Comment on above: Performed By: #### T 4, BNP, MG, TSH, CMADM, CRP, CMP ####[facility] Pzrbgphsdo9[address] [place], [place] [address]Dr. Airam Tripathi Creatinine [Mass/Vol] 1.83 mg/dL Critically high 0.55-1.02 [facility] Comment on above: Performed By: #### T 4, BNP, MG, TSH, CMADM, CRP, CMP ####[facility] Xukqfrqegj8[address] [place], [place] [address]Dr. Airam Tripathi EGFR-AF [place] 34 mL/min/1.73m2 Critically low >=60 [facility] Comment on above: Performed By: #### T 4, BNP, MG, TSH, CMADM, CRP, CMP ####[facility] Zzppchbyep9[address] [place] [address]Dr. Airam Tripathi EGFR-NON AF [place] 28 mL/min/1.73m2 Critically low >=60 [facility] Comment on above: Performed By: #### T 4, BNP, MG, TSH, CMADM, CRP, CMP ####[facility] Bmjrzorxiw22[address] [place], [place] [address]Dr. Airam Tripathi Globulin (S) [Mass/Vol] 3.5 g/dL Normal [facility] Comment on above: Performed By: #### T 4, BNP, MG, TSH, CMADM, CRP, CMP ####[facility] Qyezlfkrvi[address] [place], [place] [address]Dr. Airam Tripathi Glucose [Mass/Vol] 96 mg/dL Normal 74-106 [facility] Comment on above: Performed By: #### T 4, BNP, MG, TSH, CMADM, CRP, CMP ####[facility] Suwcgdkxqo20[address] [place], [place] [address]Dr. Airam Tripathi Potassium [Moles/Vol] 4.5 mmol/L Normal 3.5-5.1 [facility] Comment on above: Performed By: #### T 4, BNP, MG, TSH, CMADM, CRP, CMP ####[facility] Rglsbzantw[address] [place], [place] [address]Dr. Airam Tripathi Protein [Mass/Vol] 7.3 g/dL Normal 6.4-8.2 [facility] Comment on above: Performed By: #### T 4, BNP, MG, TSH, CMADM, CRP, CMP ####[facility] Yignvrzvms5084 [place] [address]Dr. Airam Tripathi Sodium [Moles/Vol] 126 mmol/L Critically low 136-145 [facility] Comment on above: Performed By: #### T 4, BNP, MG, TSH, CMADM, CRP, CMP ####[facility] Dgkriaawxy[address] [place], [place] [address]Dr. Airam Tripathi Urea nitrogen [Mass/Vol] 34.0 mg/dL Critically high 7.0-18.0 [facility] Comment on above: Performed By: #### T 4, BNP, MG, TSH, CMADM, CRP, CMP ####[facility] Nffgjdcjzf52[address] [place] [address]Dr. Airam Tripathi Urea nitrogen/Creatinine [Mass ratio] 18.6 mg/mg Normal [facility] Comment on above: Performed By: #### T 4, BNP, MG, TSH, CMADM, CRP, CMP ####[facility] Dskffibkjs4341 [place] [address]Dr. Airam Tripathi Albumin [Mass/Vol] 3.4 g/dL Normal 3.4-5.0 [facility] Comment on above: Performed By: #### C MP ####[facility] Mqjtylzmda[address] [place], [place] [address]Dr. Airam Tripathi Albumin/Globulin [Mass ratio] 1.0 {ratio} Normal [facility] Comment on above: Performed By: #### C MP ####[facility] Lzqduwhahl[address] [place], [place] [address]Dr. Airam Tripathi ALP [Catalytic activity/Vol] 151 U/L Critically high 46-116 [facility] Comment on above: Performed By: #### C MP ####[facility] Oduqrxysge29[address] [place], [place] [address]Dr. Airam Tripathi ALT [Catalytic activity/Vol] 20 U/L Normal 14-59 [facility] Comment on above: Performed By: #### C MP ####[facility] Qugxzomijb[address] [place], [place] [address]Dr. Airam Tripathi Anion gap [Moles/Vol] 11.7 mmol/L Normal [facility] Comment on above: Performed By: #### C MP ####[facility] Yzcdnmuamg736[address] [place], [place] [address]Dr. Airam Tripathi AST [Catalytic activity/Vol] 28 U/L Normal 15-37 [facility] Comment on above: Performed By: #### C MP ####[facility] Aqrahnmsks[address] [place] [address]Dr. Airam Tripathi Bilirubin [Mass/Vol] 0.3 mg/dL Normal 0.2-1.0 [facility] Comment on above: Performed By: #### C MP ####[facility] Jtibwsmmsm[address] [place], [place] [address]Dr. Airam Tripathi Calcium [Mass/Vol] 8.5 mg/dL Normal 8.5-10.1 [facility] Comment on above: Performed By: #### C MP ####[facility] Ewkutucogq[address] [place], [place] [address]Dr. Airam Tripathi Chloride [Moles/Vol] 91 mmol/L Critically low 98-107 [facility] Comment on above: Performed By: #### C MP ####[facility] Aamgzjvpuy[address] [place], [place] [address]Dr. Airam Tripathi CO2 [Moles/Vol] 28.3 mmol/L Normal 21.0-32.0 [facility] Comment on above: Performed By: #### C MP ####[facility] Gwzfwxdxtq[address] [place], [place] [address]Dr. Airam Tripathi Creatinine [Mass/Vol] 1.68 mg/dL Critically high 0.55-1.02 [facility] Comment on above: Performed By: #### C MP ####[facility] Qqbbormjzr[address] [place], [place] [address]Dr. Airam Tripathi EGFR-AF [place] 38 mL/min/1.73m2 Critically low >=60 [facility] Comment on above: Performed By: #### C MP ####[facility] Czsgisbzey[address] [place], [place] [address]Dr. Airam Tripathi EGFR-NON AF [place] 31 mL/min/1.73m2 Critically low >=60 [facility] Comment on above: Performed By: #### C MP ####[facility] Kkwoljjucs[address] [place], [place] [address]Dr. Airam Tripathi Globulin (S) [Mass/Vol] 3.5 g/dL Normal [facility] Comment on above: Performed By: #### C MP ####[facility] Kespxveqev6[address] [place] [address]Dr. Airam Tripathi Glucose [Mass/Vol] 74 mg/dL Normal 74-106 [facility] Comment on above: Performed By: #### C MP ####[facility] Sqgrvhgqid20[address] [place] [address]Dr. Airam Tripathi Potassium [Moles/Vol] 4.0 mmol/L Normal 3.5-5.1 [facility] Comment on above: Performed By: #### C MP ####[facility] Rduxgydfro7[address] [place], [place] [address]Dr. Airam Tripathi Protein [Mass/Vol] 6.9 g/dL Normal 6.4-8.2 [facility] Comment on above: Performed By: #### C MP ####[facility] Gllviavpbn[address] [place], [place] [address]Dr. Airam Tripathi Sodium [Moles/Vol] 127 mmol/L Critically low 136-145 [facility] Comment on above: Performed By: #### C MP ####[facility] Mykarfrull[address] [place], [place] [address]Dr. Airam Tripathi Urea nitrogen [Mass/Vol] 29.0 mg/dL Critically high 7.0-18.0 [facility] Comment on above: Performed By: #### C MP ####[facility] Tqzmiidfvb[address] [place], [place] [address]Dr. Airam Tripathi Urea nitrogen/Creatinine [Mass ratio] 17.3 mg/mg Normal [facility] Comment on above: Performed By: #### C MP ####[facility] Zcmwpvyrqp083[address] [place], [place] [address]Dr. Airam Tripathi T4on 06-13-2022 T4 [Mass/Vol] 6.80 ug/dL Normal 4.80-13.90 [facility] Comment on above: Performed By: #### T 4, BNP, MG, TSH, CMADM, CRP, CMP ####[facility] [address] [place] [address]Dr. Airam Tripathi TSHon 06-13-2022 TSH 0.101 uIU/mL Critically low 0.358-3.74 0 [facility] Comment on above: Performed By: #### T 4, BNP, MG, TSH, CMADM, CRP, CMP ####[facility] Vniriuwvoy[address] [place], [place] [address]Dr. Airam Tripathi OSMOLALITYon 06-08-2022 Osmolality [Osmolality] 272 mosm/kg Critically low 275-295 [facility] Comment on above: Performed By: #### O SMO ####[facility] Xxhmlnfaun[address] [place], [place] [address]Dr. Airam Deuce CBC AUTO DIFFon 06-06-2022 BASO # 0.0 103/ul Normal 0.0-0.1 [facility] Comment on above: Performed By: #### C BC ####[facility] Ughedkmmkh[address] [place], [place] [address]Dr. Airam Tripathi Basophils/100 WBC (Bld) 0.3 % Normal 0.2-2.0 [facility] Comment on above: Performed By: #### C BC ####[facility] Abmuvtlbiq[address] [place], [place] [address]Dr. Airam Tripathi EO # 0.2 103/ul Normal 0.0-0.7 [facility] Comment on above: Performed By: #### C BC ####[facility] Bvrzbstjdv[address] [place], [place] [address]Dr. Selenaneil Tripathi Eosinophils/100 WBC (Bld) 2.5 % Normal 0.9-7.0 [facility] Comment on above: Performed By: #### C BC ####[facility] Nwvrmpzawz[address] [place], [place] [address]Dr. Airam Tripathi Erythrocyte distribution width (RBC) [Ratio] 12.9 % Normal 11.0-15.0 [facility] Comment on above: Performed By: #### C BC ####[facility] Tocaqcvggq[address] [place], [place] [address]Dr. Airam Tripathi Hematocrit (Bld) [Volume fraction] 29.8 % Critically low 36.0-48.0 [facility] Comment on above: Performed By: #### C BC ####[facility] Rvwpmsokzc18[address] [place] [id number]. Airam Tripathi Hemoglobin (Bld) [Mass/Vol] 9.7 g/dL Critically low 12.0-16.0 [facility] Comment on above: Performed By: #### C BC ####[facility] Btrqkwevvs[address] [place] [address]Dr. Airam Tripathi IG # 0.03 10e3/ul Normal 0.00-0.03 [facility] Comment on above: Performed By: #### C BC ####[facility] Nsuekqadqo9[address] [place] [address]Dr. Airam Tripathi IG % 0.3 % Normal 0.0-0.5 [facility] Comment on above: Performed By: #### C BC ####[facility] Ictoiovnho[address] [place] [address]Dr. Airam Tripathi LYMPH # 1.3 103/ul Normal 1.2-3.8 [facility] Comment on above: Performed By: #### C BC ####[facility] Dlxdlidqpo5[address] [place] [address]Dr. Airam Tripathi Lymphocytes/100 WBC (Bld) 14.6 % Critically low 20.5-60.0 [facility] Comment on above: Performed By: #### C BC ####[facility] G[address]tbvjpe[address] [place] [address]Dr. Airam Tripathi MANUAL DIFF REQ NO Normal [facility] Comment on above: Performed By: #### C BC ####[facility] Kpvttnbmal7181 [place] [address]Dr. Airam Tripathi MCH (RBC) [Entitic mass] 30.6 pg Normal 26.7-34.0 [facility] Comment on above: Performed By: #### C BC ####[facility] Ndbugnfejg27[address] [place] [address]Dr. Airam Tripathi MCHC (RBC) [Mass/Vol] 32.6 g/dL Normal 29.9-35.2 [facility] Comment on above: Performed By: #### C BC ####[facility] Luokpcwenn[address] [place], [place] [address]DrKianna Airam Deuce MCV (RBC) [Entitic vol] 94.0 fL Normal 81.0-99.0 [facility] Comment on above: Performed By: #### C BC ####[facility] Bcvildocrd6287 [place] [address]Dr. Airam Tripathi MONO # 0.5 103/ul Normal 0.3-0.8 [facility] Comment on above: Performed By: #### C BC ####[facility] Mxyhkyrjez2052 [place] [address]DrKianna Tripathi Monocytes/100 WBC (Bld) 5.7 % Normal 1.7-12.0 [facility] Comment on above: Performed By: #### C BC ####[facility] Kqrqdgolwv93[address] [place], [place] [address]Dr. Selenaneil Deuce NEUT # 6.9 103/ul Critically high 1.4-6.5 [facility] Comment on above: Performed By: #### C BC ####[facility] Fhgdvwzfzf32[address] [place], [place] [address]Dr. Selenaneil Tripathi Neutrophils/100 WBC (Bld) 76.6 % Critically high 43.0-75.0 [facility] Comment on above: Performed By: #### C BC ####[facility] Dyqmiqbvkx6131 [place] [address]Dr. Selenaneil Tripathi Platelet mean volume (Bld) [Entitic vol] 9.2 fL Critically low 9.5-13.5 [facility] Comment on above: Performed By: #### C BC ####[facility] Eowstawsff[address] [place] [address]Dr. Airam Tripathi PLT 271 103/ul Normal 150-450 [facility] Comment on above: Performed By: #### C BC ####[facility] Xhtpvsmyzh144[address] [place], [place] [address]DrKianna Tripathi RBC 3.17 106/ul Critically low 4.20-5.40 [facility] Comment on above: Performed By: #### C BC ####[facility] Ezqvwijxlk073[address] [place], [place] [address]Dr. Airam Tripathi WBC 9.1 103/ul Normal 4.0-11.0 [facility] Comment on above: Performed By: #### C BC ####[facility] Bkaarijktn53[address] [place] [address]Dr. Airam Tripathi PROF 14(COMP METB)on 022 Albumin [Mass/Vol] 3.4 g/dL Normal 3.4-5.0 [facility] Comment on above: Performed By: #### C MP ####[facility] Ricytliiyp69[address] [place] [address]Dr. Airam Tripathi Albumin/Globulin [Mass ratio] 1.0 {ratio} Normal [facility] Comment on above: Performed By: #### C MP ####[facility] Mzumudjnzm01[address] [place] [address]Dr. Airam Tripathi ALP [Catalytic activity/Vol] 156 U/L Critically high 46-116 [facility] Comment on above: Performed By: #### C MP ####[facility] Dcjqdvhkqp015[address] [place], [place] [address]Dr. Airam Tripathi ALT [Catalytic activity/Vol] 18 U/L Normal 14-59 [facility] Comment on above: Performed By: #### C MP ####[facility] Jastquclfb59[address] [place], [place] [address]Dr. Airam Tripathi Anion gap [Moles/Vol] 10.8 mmol/L Normal [facility] Comment on above: Performed By: #### C MP ####[facility] Zboytqmhhr[address] [place], [place] [address]Dr. Airam Tripathi AST [Catalytic activity/Vol] 27 U/L Normal 15-37 [facility] Comment on above: Performed By: #### C MP ####[facility] Xesqyzbufz308[address] [place], [place] [address]Dr. Airam Tripathi Bilirubin [Mass/Vol] 0.2 mg/dL Normal 0.2-1.0 [facility] Comment on above: Performed By: #### C MP ####[facility] Fwvduehqgm24450[address] [place], [place] [address]Dr. Airam Tripathi Calcium [Mass/Vol] 8.1 mg/dL Critically low 8.5-10.1 [facility] Comment on above: Performed By: #### C MP ####[facility] Ozltqfdtih638[address] [place], [place] [address]Dr. Airam Deuce Chloride [Moles/Vol] 92 mmol/L Critically low 98-107 [facility] Comment on above: Performed By: #### C MP ####[facility] Hsrbtfhsao642[address] [place], [place] [address]Dr. Airam Deuce CO2 [Moles/Vol] 27.4 mmol/L Normal 21.0-32.0 [facility] Comment on above: Performed By: #### C MP ####[facility] Zsnvexcjsc24[address] [place], [place] [address]Dr. Airam Deuce Creatinine [Mass/Vol] 1.57 mg/dL Critically high 0.55-1.02 [facility] Comment on above: Performed By: #### C MP ####[facility] Zzqnjpzela34[address] [place], [place] [address]Dr. Airam Deuce EGFR-AF [place] 41 mL/min/1.73m2 Critically low >=60 [facility] Comment on above: Performed By: #### C MP ####[facility] Ceyoubmxcn049[address] [place], [place] [address]Dr. Airam Deuce EGFR-NON AF [place] 34 mL/min/1.73m2 Critically low >=60 [facility] Comment on above: Performed By: #### C MP ####[facility] Holabvngxn424[address] [place], [place] [address]Dr. Airam Deuce Globulin (S) [Mass/Vol] 3.4 g/dL Normal [facility] Comment on above: Performed By: #### C MP ####[facility] Nfzaxoviou667[address] [place], [place] [address]Dr. Airam Deuce Glucose [Mass/Vol] 82 mg/dL Normal 74-106 [facility] Comment on above: Performed By: #### C MP ####[facility] Mldazcakfs9216[address] [place], [place] [address]Dr. Airam Tripathi Potassium [Moles/Vol] 4.2 mmol/L Normal 3.5-5.1 [facility] Comment on above: Performed By: #### C MP ####[facility] Lqkrkljump6812[address] [place], [place] [address]Dr. Airam Tripathi Protein [Mass/Vol] 6.8 g/dL Normal 6.4-8.2 [facility] Comment on above: Performed By: #### C MP ####[facility] Fzzlspersu325[address] [place], [place] [address]Dr. Airam Tripathi Sodium [Moles/Vol] 126 mmol/L Critically low 136-145 [facility] Comment on above: Performed By: #### C MP ####[facility] Rlmbklqdtn879[address] [place], [place] [address]Dr. Airam Tripathi Urea nitrogen [Mass/Vol] 35.0 mg/dL Critically high 7.0-18.0 [facility] Comment on above: Performed By: #### C MP ####[facility] Frhfhtpsys24[address] [place], [place] [address]Dr. Airam Tripathi Urea nitrogen/Creatinine [Mass ratio] 22.3 mg/mg Normal [facility] Comment on above: Performed By: #### C MP ####[facility] Tjitejaxzf9[address] [place], [place] [address]Dr. Airam Tripathi OSMOLALITYon 06-02-2022 Osmolality [Osmolality] 276 mosm/kg Normal 275-295 [facility] Comment on above: Performed By: #### O SMO ####[facility] Uxrtqfiirl056[address] [place], [place] [address]Dr. Airam Tripathi CBC AUTO DIFFon 06-01-2022 BASO # 0.1 103/ul Normal 0.0-0.1 [facility] Comment on above: Performed By: #### C BC ####[facility] Vmoskncews19[address] [place], [place] [address]Dr. Airam Tripathi Basophils/100 WBC (Bld) 0.7 % Normal 0.2-2.0 [facility] Comment on above: Performed By: #### C BC ####[facility] Zzriaxyjev[address] [place] [address]Dr. Airam Tripathi EO # 0.3 103/ul Normal 0.0-0.7 [facility] Comment on above: Performed By: #### C BC ####[facility] Zjmcamxspc6379 [place] [address]Dr. Airam Tripathi Eosinophils/100 WBC (Bld) 3.3 % Normal 0.9-7.0 [facility] Comment on above: Performed By: #### C BC ####[facility] Ynmpyxhenw4985 [place] [address]Dr. Airam Tripathi Erythrocyte distribution width (RBC) [Ratio] 13.2 % Normal 11.0-15.0 [facility] Comment on above: Performed By: #### C BC ####[facility] Ykfmwjfcbq017[address] [place], [place] [address]Dr. Airam Tripathi Hematocrit (Bld) [Volume fraction] 32.0 % Critically low 36.0-48.0 [facility] Comment on above: Performed By: #### C BC ####[facility] Dnglwtnrhl414[address] [place], [place] [address]Dr. Airam Tripathi Hemoglobin (Bld) [Mass/Vol] 10.3 g/dL Critically low 12.0-16.0 [facility] Comment on above: Performed By: #### C BC ####[facility] Wwakljpcmg[address] [place] [address]Dr. Airam Tripathi IG # 0.05 10e3/ul Critically high 0.00-0.03 [facility] Comment on above: Performed By: #### C BC ####[facility] Ckwzgyaxkr7637 [place] [address]Dr. Airam Tripathi IG % 0.7 % Critically high 0.0-0.5 [facility] Comment on above: Performed By: #### C BC ####[facility] Xmdrpnshin[address] [place], [place] [address]Dr. Selenaneil Tripathi LYMPH # 1.7 103/ul Normal 1.2-3.8 [facility] Comment on above: Performed By: #### C BC ####[facility] Thxqmljgdj7690 [place] [id number]. Airam Deuce Lymphocytes/100 WBC (Bld) 22.6 % Normal 20.5-60.0 [facility] Comment on above: Performed By: #### C BC ####[facility] Lxglmyvkfi9119 [place] [address]Dr. Airam Deuce MANUAL DIFF REQ NO Normal [facility] Comment on above: Performed By: #### C BC ####[facility] Ystscvsoyj6170 [place] [address]Dr. Airam Deuce MCH (RBC) [Entitic mass] 30.8 pg Normal 26.7-34.0 [facility] Comment on above: Performed By: #### C BC ####[facility] Mqhzfryhgv7091 [place] [address]Dr. Airam Deuce MCHC (RBC) [Mass/Vol] 32.2 g/dL Normal 29.9-35.2 [facility] Comment on above: Performed By: #### C BC ####[facility] Bofuacdqjg40[address] [place], [place] [address]Dr. Selenaneil Tripathi MCV (RBC) [Entitic vol] 95.8 fL Normal 81.0-99.0 [facility] Comment on above: Performed By: #### C BC ####[facility] Pjuvezspxa177[address] [place], [place] [address]Dr. Selenaneil Deuce MONO # 0.6 103/ul Normal 0.3-0.8 [facility] Comment on above: Performed By: #### C BC ####[facility] Vingtrfkjt0265 [place] [address]Dr. Selenaneil Tripathi Monocytes/100 WBC (Bld) 8.6 % Normal 1.7-12.0 [facility] Comment on above: Performed By: #### C BC ####[facility] Sppfuskuqy924[address] [place], [place] [address]Dr. Airam Tripathi NEUT # 4.8 103/ul Normal 1.4-6.5 [facility] Comment on above: Performed By: #### C BC ####[facility] Enuqddaxbi0943 [place] [address]Dr. Airam Deuce Neutrophils/100 WBC (Bld) 64.1 % Normal 43.0-75.0 [facility] Comment on above: Performed By: #### C BC ####[facility] Leyqvlcyeq3589 [place] [address]Dr. Airam Tripathi Platelet mean volume (Bld) [Entitic vol] 10.0 fL Normal 9.5-13.5 [facility] Comment on above: Performed By: #### C BC ####[facility] Hkdpzitvat6154 [place] [address]Dr. Airam Tripathi PLT 322 103/ul Normal 150-450 [facility] Comment on above: Performed By: #### C BC ####[facility] Viegovbtiv9366 [place] [address]Dr. Airam Tripathi RBC 3.34 106/ul Critically low 4.20-5.40 [facility] Comment on above: Performed By: #### C BC ####[facility] Fijctshxud7000 [place] [address]Dr. Airam Tripathi WBC 7.5 103/ul Normal 4.0-11.0 [facility] Comment on above: Performed By: #### C BC ####[facility] Zsaazpuxcg9[address] [place], [place] [address]Dr. Airam Tripathi PROF 14(COMP METB)on 022 Albumin [Mass/Vol] 3.5 g/dL Normal 3.4-5.0 [facility] Comment on above: Performed By: #### C MP ####[facility] Hymljugfez2852 [place] [id number]. Airam Tripathi Albumin/Globulin [Mass ratio] 1.1 {ratio} Normal [facility] Comment on above: Performed By: #### C MP ####[facility] Lyojbtenlw9590 [place] [address]Dr. Airam Tripathi ALP [Catalytic activity/Vol] 167 U/L Critically high 46-116 [facility] Comment on above: Performed By: #### C MP ####[facility] Eitwwwgvxw7640 [place] [address]Dr. Airam Tripathi ALT [Catalytic activity/Vol] 24 U/L Normal 14-59 [facility] Comment on above: Performed By: #### C MP ####[facility] Dosplqgqkl385[address] [place], [place] [address]Dr. Airam Tripathi Anion gap [Moles/Vol] 14.1 mmol/L Normal [facility] Comment on above: Performed By: #### C MP ####[facility] Lopwfmbmuk530[address] [place], [place] [address]Dr. Airam Tripathi AST [Catalytic activity/Vol] 27 U/L Normal 15-37 [facility] Comment on above: Performed By: #### C MP ####[facility] Bcvbiijccp668[address] [place], [place] [address]Dr. Airam Tripathi Bilirubin [Mass/Vol] 0.3 mg/dL Normal 0.2-1.0 [facility] Comment on above: Performed By: #### C MP ####[facility] Jjoojivotw288[address] [place], [place] [address]Dr. Airam Tripathi Calcium [Mass/Vol] 8.0 mg/dL Critically low 8.5-10.1 [facility] Comment on above: Performed By: #### C MP ####[facility] Wcwvmimjhv448[address] [place], [place] [address]Dr. Airam Tripathi Chloride [Moles/Vol] 96 mmol/L Critically low 98-107 [facility] Comment on above: Performed By: #### C MP ####[facility] Ngdgldpbrr193[address] [place], [place] [address]Dr. Airam Deuce CO2 [Moles/Vol] 24.6 mmol/L Normal 21.0-32.0 [facility] Comment on above: Performed By: #### C MP ####[facility] Ttieqqounp647[address] [place], [place] [address]Dr. Airam Tripathi Creatinine [Mass/Vol] 1.79 mg/dL Critically high 0.55-1.02 [facility] Comment on above: Performed By: #### C MP ####[facility] Degeevmubk[address] [place] [address]Dr. Airam Tripathi EGFR-AF [place] 35 mL/min/1.73m2 Critically low >=60 [facility] Comment on above: Performed By: #### C MP ####[facility] Uebkpgaltj3244 [place] [address]Dr. Airam Tripathi EGFR-NON AF [place] 29 mL/min/1.73m2 Critically low >=60 [facility] Comment on above: Performed By: #### C MP ####[facility] Irgcskekov6518 [place] [address]Dr. Airam Tripathi Globulin (S) [Mass/Vol] 3.3 g/dL Normal [facility] Comment on above: Performed By: #### C MP ####[facility] Gwrdpckqnv[address] [place], [place] [address]Dr. Airam Tripathi Glucose [Mass/Vol] 58 mg/dL Critically low 74-106 [facility] Comment on above: Performed By: #### C MP ####[facility] Gnkeeqtbfu248[address] [place], [place] [address]Dr. Airam Tripathi Potassium [Moles/Vol] 4.7 mmol/L Normal 3.5-5.1 [facility] Comment on above: Performed By: #### C MP ####[facility] Uwktstflcj212[address] [place], [place] [address]Dr. Airam Tripathi Protein [Mass/Vol] 6.8 g/dL Normal 6.4-8.2 [facility] Comment on above: Performed By: #### C MP ####[facility] Umfminhjxa1034 [place] [address]Dr. Airam Tripathi Sodium [Moles/Vol] 130 mmol/L Critically low 136-145 [facility] Comment on above: Performed By: #### C MP ####[facility] Leelyxstig[address] [place], [place] [address]Dr. Airam Tripathi Urea nitrogen [Mass/Vol] 30.0 mg/dL Critically high 7.0-18.0 [facility] Comment on above: Performed By: #### C MP ####[facility] Gvvbozhukw907[address] [place], [place] [address]Dr. Airam Tripathi Urea nitrogen/Creatinine [Mass ratio] 16.8 mg/mg Normal [facility] Comment on above: Performed By: #### C MP ####[facility] Xbtjmnjwnb[address] [place], [place] [address]Dr. Airam Tripathi OSMOLALITYon 05-28-2022 Osmolality [Osmolality] 275 mosm/kg Normal 275-295 [facility] Comment on above: Performed By: #### O SMO ####[facility] Txprptxehs008[address] [place], [place] [address]Dr. Airam Tripathi CBC AUTO DIFFon 05-26-2022 BASO # 0.0 103/ul Normal 0.0-0.1 [facility] Comment on above: Performed By: #### C BC ####[facility] Vglgknsovz309[address] [place], [place] [address]Dr. Airam Deuce Basophils/100 WBC (Bld) 0.4 % Normal 0.2-2.0 [facility] Comment on above: Performed By: #### C BC ####[facility] Gjowtwzdzf655[address] [place], [place] [address]Dr. Airam Tripathi EO # 0.3 103/ul Normal 0.0-0.7 [facility] Comment on above: Performed By: #### C BC ####[facility] Nrtwdiumdb373[address] [place], [place] [address]Dr. Airam Deuce Eosinophils/100 WBC (Bld) 3.2 % Normal 0.9-7.0 [facility] Comment on above: Performed By: #### C BC ####[facility] Putohobwjj[address] [place], [place] [address]Dr. Airam Tripathi Erythrocyte distribution width (RBC) [Ratio] 13.0 % Normal 11.0-15.0 [facility] Comment on above: Performed By: #### C BC ####[facility] Ftdcdkiwjz105[address] [place], [place] [address]Dr. Airam Tripathi Hematocrit (Bld) [Volume fraction] 30.4 % Critically low 36.0-48.0 [facility] Comment on above: Performed By: #### C BC ####[facility] Xjjjesmlsu0493 [place] [address]Dr. Airam Tripathi Hemoglobin (Bld) [Mass/Vol] 9.6 g/dL Critically low 12.0-16.0 [facility] Comment on above: Performed By: #### C BC ####[facility] Ehhnnnisyt25[address] [place] [address]Dr. Airam Tripathi IG # 0.06 10e3/ul Critically high 0.00-0.03 [facility] Comment on above: Performed By: #### C BC ####[facility] Xtupimzxop023[address] [place], [place] [address]Dr. Airam Tripathi IG % 0.7 % Critically high 0.0-0.5 [facility] Comment on above: Performed By: #### C BC ####[facility] Otyobntysr[address] [place], [place] [address]Dr. Airam Tripathi LYMPH # 1.9 103/ul Normal 1.2-3.8 [facility] Comment on above: Performed By: #### C BC ####[facility] Xvghmhguwt128[address] [place], [place] [address]Dr. Airam Tripathi Lymphocytes/100 WBC (Bld) 20.6 % Normal 20.5-60.0 [facility] Comment on above: Performed By: #### C BC ####[facility] Uzumupmahb[address] [place], [place] [address]Dr. Airam Tripathi MANUAL DIFF REQ NO Normal [facility] Comment on above: Performed By: #### C BC ####[facility] Xvdqtfebdi[address] [place], [place] [address]Dr. Airam Tripathi MCH (RBC) [Entitic mass] 30.1 pg Normal 26.7-34.0 [facility] Comment on above: Performed By: #### C BC ####[facility] Qfzmnlxfgb468[address] [place], [place] [address]Dr. Airam Tripathi MCHC (RBC) [Mass/Vol] 31.6 g/dL Normal 29.9-35.2 [facility] Comment on above: Performed By: #### C BC ####[facility] Lldhxibbni2552 [place] [id number]. Airam Tripathi MCV (RBC) [Entitic vol] 95.3 fL Normal 81.0-99.0 [facility] Comment on above: Performed By: #### C BC ####[facility] Uxrnxhsfuw3616 [place] [id number]. Airam Tripathi MONO # 0.6 103/ul Normal 0.3-0.8 [facility] Comment on above: Performed By: #### C BC ####[facility] Irkchdqwbv9163 [place] [id number]. Airam Tripathi Monocytes/100 WBC (Bld) 6.9 % Normal 1.7-12.0 [facility] Comment on above: Performed By: #### C BC ####[facility] Hqivvkjwox6176 [place] [id number]. Airam Tripathi NEUT # 6.1 103/ul Normal 1.4-6.5 [facility] Comment on above: Performed By: #### C BC ####[facility] Jodqtfxguk2339 [place] [id number]. Airam Tripathi Neutrophils/100 WBC (Bld) 68.2 % Normal 43.0-75.0 [facility] Comment on above: Performed By: #### C BC ####[facility] Mhwsmvejzl6399 [place] [id number]. Airam Tripathi Platelet mean volume (Bld) [Entitic vol] 9.7 fL Normal 9.5-13.5 [facility] Comment on above: Performed By: #### C BC ####[facility] Wawalwqbid7652 [place] [id number]. Airam Tripathi PLT 317 103/ul Normal 150-450 [facility] Comment on above: Performed By: #### C BC ####[facility] Ashowbcock7337 [place] [id number]. Airam Tripathi RBC 3.19 106/ul Critically low 4.20-5.40 [facility] Comment on above: Performed By: #### C BC ####[facility] Kctbaacdny6547 [place] [address]Dr. Airam Tripathi WBC 9.0 103/ul Normal 4.0-11.0 [facility] Comment on above: Performed By: #### C BC ####[facility] Fwgysqlymk665[address] [place], [place] [address]Dr. Airam Tripathi PROF 14(COMP METB)on 022 Albumin [Mass/Vol] 3.4 g/dL Normal 3.4-5.0 [facility] Comment on above: Performed By: #### C MP ####[facility] Wkozvhzdno55[address] [place] [address]Dr. Airam Tripathi Albumin/Globulin [Mass ratio] 1.0 {ratio} Normal [facility] Comment on above: Performed By: #### C MP ####[facility] Ritvwfndwt04[address] [place], [place] [address]Dr. Airam Tripathi ALP [Catalytic activity/Vol] 153 U/L Critically high 46-116 [facility] Comment on above: Performed By: #### C MP ####[facility] Jdjysnkdaq517[address] [place], [place] [address]Dr. Airam Tripathi ALT [Catalytic activity/Vol] 21 U/L Normal 14-59 [facility] Comment on above: Performed By: #### C MP ####[facility] Oohpqqwnvg364[address] [place], [place] [address]Dr. Airam Tripathi Anion gap [Moles/Vol] 13.6 mmol/L Normal [facility] Comment on above: Performed By: #### C MP ####[facility] Lpjlmhdsaf422[address] [place], [place] [address]Dr. Airam Tripathi AST [Catalytic activity/Vol] 23 U/L Normal 15-37 [facility] Comment on above: Performed By: #### C MP ####[facility] Otpqhlclvh[address] [place], [place] [address]Dr. Airam Tripathi Bilirubin [Mass/Vol] 0.2 mg/dL Normal 0.2-1.0 [facility] Comment on above: Performed By: #### C MP ####[facility] Eqymyaebtn6983 [place] [phone]. Airam Tripathi Calcium [Mass/Vol] 8.4 mg/dL Critically low 8.5-10.1 [facility] Comment on above: Performed By: #### C MP ####[facility] Kqbtnccbib2469 [place] [phone]. Airam Tripathi Chloride [Moles/Vol] 97 mmol/L Critically low 98-107 [facility] Comment on above: Performed By: #### C MP ####[facility] Uzwwoacrwl6[address] [place] [address]Dr. Airam Tripathi CO2 [Moles/Vol] 25.2 mmol/L Normal 21.0-32.0 [facility] Comment on above: Performed By: #### C MP ####[facility] Gpmyupsrkh[address] [place], [place] [address]Dr. Airam Tripathi Creatinine [Mass/Vol] 1.58 mg/dL Critically high 0.55-1.02 [facility] Comment on above: Performed By: #### C MP ####[facility] Iqkgjqugxh[address] [place], [place] [id number]. Airam Tripathi EGFR-AF [place] 40 mL/min/1.73m2 Critically low >=60 [facility] Comment on above: Performed By: #### C MP ####[facility] Mjeabvsypi9[address] [place], [place] [address]Dr. Airam Tripathi EGFR-NON AF [place] 33 mL/min/1.73m2 Critically low >=60 [facility] Comment on above: Performed By: #### C MP ####[facility] Jbfopxolul9405 [place] [phone]. Airam Tripathi Globulin (S) [Mass/Vol] 3.4 g/dL Normal [facility] Comment on above: Performed By: #### C MP ####[facility] Gaaxwwbmph[address] [place] [address]Dr. Airam Tripathi Glucose [Mass/Vol] 74 mg/dL Normal 74-106 [facility] Comment on above: Performed By: #### C MP ####[facility] Byuyphrwtr9321 [place] [address]Dr. Airam Tripathi Potassium [Moles/Vol] 4.8 mmol/L Normal 3.5-5.1 [facility] Comment on above: Performed By: #### C MP ####[facility] Kgsawydzjy0925 [place] [address]Dr. Airam Tripathi Protein [Mass/Vol] 6.8 g/dL Normal 6.4-8.2 [facility] Comment on above: Performed By: #### C MP ####[facility] Wnckxyhfvc2918 [place] [address]Dr. Airam Tripathi Sodium [Moles/Vol] 131 mmol/L Critically low 136-145 [facility] Comment on above: Performed By: #### C MP ####[facility] Aneozoegrx[address] [place], [place] [address]Dr. Airam Tripathi Urea nitrogen [Mass/Vol] 31.0 mg/dL Critically high 7.0-18.0 [facility] Comment on above: Performed By: #### C MP ####[facility] Zvzzbcxepw27[address] [place], [place] [address]Dr. Airam Tripathi Urea nitrogen/Creatinine [Mass ratio] 19.6 mg/mg Normal [facility] Comment on above: Performed By: #### C MP ####[facility] Fiflwlkdrl8[address] [place], [place] [address]Dr. Airam Tripathi OSMOLALITYon 05-19-2022 Osmolality [Osmolality] 281 mosm/kg Normal 275-295 [facility] Comment on above: Performed By: #### O SMO ####[facility] Fuqppyoaio96[address] [place], [place] [address]Dr. Airam Tripathi CBC AUTO DIFFon 05-17-2022 BASO # 0.1 103/ul Normal 0.0-0.1 [facility] Comment on above: Performed By: #### C BC ####[facility] Hxvtrlwbjf5010 [place] [phone]. Airam Tripathi Basophils/100 WBC (Bld) 0.6 % Normal 0.2-2.0 [facility] Comment on above: Performed By: #### C BC ####[facility] Loszjckwik8207 [place] [phone]. Airam Tripathi EO # 0.2 103/ul Normal 0.0-0.7 [facility] Comment on above: Performed By: #### C BC ####[facility] Qcjdilbfnw7146 [place] [phone]. Airam Tripathi Eosinophils/100 WBC (Bld) 1.9 % Normal 0.9-7.0 [facility] Comment on above: Performed By: #### C BC ####[facility] Sdnufbflat[address] [place], [place] [address]Dr. Airam Tripathi Erythrocyte distribution width (RBC) [Ratio] 12.9 % Normal 11.0-15.0 [facility] Comment on above: Performed By: #### C BC ####[facility] Kqsgjsbifp932[address] [place], [place] [address]Dr. Airam Tripathi Hematocrit (Bld) [Volume fraction] 32.1 % Critically low 36.0-48.0 [facility] Comment on above: Performed By: #### C BC ####[facility] Smxqinhldi828[address] [place], [place] [address]Dr. Airam Tripathi Hemoglobin (Bld) [Mass/Vol] 9.9 g/dL Critically low 12.0-16.0 [facility] Comment on above: Performed By: #### C BC ####[facility] Ctyipezjcs650[address] [place], [place] [address]Dr. Airam Tripathi IG # 0.05 10e3/ul Critically high 0.00-0.03 [facility] Comment on above: Performed By: #### C BC ####[facility] Evgjnzreor501[address] [place], [place] [address]Dr. Airam Tripathi IG % 0.6 % Critically high 0.0-0.5 [facility] Comment on above: Performed By: #### C BC ####[facility] Fjabkpasoi8[address] [place], [place] [address]Dr. Airam Tripathi LYMPH # 1.3 103/ul Normal 1.2-3.8 [facility] Comment on above: Performed By: #### C BC ####[facility] Hheaggagxs9235 [place] [phone]. Airam Deuce Lymphocytes/100 WBC (Bld) 15.2 % Critically low 20.5-60.0 [facility] Comment on above: Performed By: #### C BC ####[facility] Mzfgozanec4259 [place] [address]Dr. Airam Tripathi MANUAL DIFF REQ NO Normal [facility] Comment on above: Performed By: #### C BC ####[facility] Gegjplzkzu[address] [place], [place] [address]Dr. Airam Deuce MCH (RBC) [Entitic mass] 30.0 pg Normal 26.7-34.0 [facility] Comment on above: Performed By: #### C BC ####[facility] Dzejbfmprv336[address] [place], [place] [address]Dr. Selenaneil Tripathi MCHC (RBC) [Mass/Vol] 30.8 g/dL Normal 29.9-35.2 [facility] Comment on above: Performed By: #### C BC ####[facility] Bujrnionae206[address] [place], [place] [address]Dr. Selenaneil Tripathi MCV (RBC) [Entitic vol] 97.3 fL Normal 81.0-99.0 [facility] Comment on above: Performed By: #### C BC ####[facility] Otzijfvpwm623[address] [place], [place] [address]Dr. Airam Tripathi MONO # 0.5 103/ul Normal 0.3-0.8 [facility] Comment on above: Performed By: #### C BC ####[facility] Xtetmfhile518[address] [place], [place] [address]Dr. Airam Tripathi Monocytes/100 WBC (Bld) 5.4 % Normal 1.7-12.0 [facility] Comment on above: Performed By: #### C BC ####[facility] Cnqwzunbzi36[address] [place], [place] [address]Dr. Airam Tripathi NEUT # 6.5 103/ul Normal 1.4-6.5 [facility] Comment on above: Performed By: #### C BC ####[facility] Olptuhhsfg2973 [place] [phone]. Airam Tripathi Neutrophils/100 WBC (Bld) 76.3 % Critically high 43.0-75.0 [facility] Comment on above: Performed By: #### C BC ####[facility] Fppqifjucg4204 [place] [phone]. Airam Tripathi Platelet mean volume (Bld) [Entitic vol] 10.1 fL Normal 9.5-13.5 [facility] Comment on above: Performed By: #### C BC ####[facility] Buttqjkcbj5413 [place] [address]Dr. Airam Tripathi PLT 284 103/ul Normal 150-450 [facility] Comment on above: Performed By: #### C BC ####[facility] Gbfsxpdpkx7274 [place] [address]Dr. Airam Tripathi RBC 3.30 106/ul Critically low 4.20-5.40 [facility] Comment on above: Performed By: #### C BC ####[facility] Bzpmnygexb[address] [place], [place] [address]Dr. Airam Tripathi WBC 8.5 103/ul Normal 4.0-11.0 [facility] Comment on above: Performed By: #### C BC ####[facility] Otxhveqgwr1488 [place] [address]Dr. Airam Tripathi PROF 14(COMP METB)on 022 Albumin [Mass/Vol] 3.1 g/dL Critically low 3.4-5.0 [facility] Comment on above: Performed By: #### C MP ####[facility] Wtycisyfaz1460 [place] [address]Dr. Airam Tripathi Albumin/Globulin [Mass ratio] 0.9 {ratio} Normal [facility] Comment on above: Performed By: #### C MP ####[facility] Jzhwqawmeq2182 [place] [address]Dr. Airam Tripathi ALP [Catalytic activity/Vol] 162 U/L Critically high 46-116 [facility] Comment on above: Performed By: #### C MP ####[facility] Bqbxyltldh5154 [place] [phone]. Airam Tripathi ALT [Catalytic activity/Vol] 22 U/L Normal 14-59 [facility] Comment on above: Performed By: #### C MP ####[facility] Mixeryzqsb8502 [place] [phone]. Airam Tripathi Anion gap [Moles/Vol] 9.4 mmol/L Normal [facility] Comment on above: Performed By: #### C MP ####[facility] Hwtnypwjvc64[address] [place], [place] [address]Dr. Airam Tripathi AST [Catalytic activity/Vol] 26 U/L Normal 15-37 [facility] Comment on above: Performed By: #### C MP ####[facility] Moddzbknrd512[address] [place], [place] [address]Dr. Airam Tripathi Bilirubin [Mass/Vol] 0.2 mg/dL Normal 0.2-1.0 [facility] Comment on above: Performed By: #### C MP ####[facility] Wqzlwhdqpu788[address] [place], [place] [address]Dr. Airam Tripathi Calcium [Mass/Vol] 8.2 mg/dL Critically low 8.5-10.1 [facility] Comment on above: Performed By: #### C MP ####[facility] Vfccwziory349[address] [place], [place] [address]Dr. Airam Tripathi Chloride [Moles/Vol] 103 mmol/L Normal 98-107 [facility] Comment on above: Performed By: #### C MP ####[facility] Miiyqlfjxh[address] [place], [place] [phone]. Airam Tripathi CO2 [Moles/Vol] 24.8 mmol/L Normal 21.0-32.0 [facility] Comment on above: Performed By: #### C MP ####[facility] Jzfdvtsxup1416[address] [place], [place] [address]Dr. Airam Tripathi Creatinine [Mass/Vol] 1.19 mg/dL Critically high 0.55-1.02 [facility] Comment on above: Performed By: #### C MP ####[facility] Ixxsztyhct5636 [place] [phone]. Airam Tripathi EGFR-AF [place] 56 mL/min/1.73m2 Critically low >=60 [facility] Comment on above: Performed By: #### C MP ####[facility] Gxdoscfwlm1333 [place] [phone]. Airam Tripathi EGFR-NON AF [place] 46 mL/min/1.73m2 Critically low >=60 [facility] Comment on above: Performed By: #### C MP ####[facility] Umsqbkbdxz9341 [place] [address]Dr. Airam Tripathi Globulin (S) [Mass/Vol] 3.6 g/dL Normal [facility] Comment on above: Performed By: #### C MP ####[facility] Ctppvyacho8304 [place] [address]Dr. Airam Tripathi Glucose [Mass/Vol] 75 mg/dL Normal 74-106 [facility] Comment on above: Performed By: #### C MP ####[facility] Vujbqkysqk1831 [place] [address]Dr. Airam Tripathi Potassium [Moles/Vol] 5.2 mmol/L Critically high 3.5-5.1 [facility] Comment on above: Performed By: #### C MP ####[facility] Iuxeplpnja4809 [place] [address]Dr. Airam Tripathi Protein [Mass/Vol] 6.7 g/dL Normal 6.4-8.2 [facility] Comment on above: Performed By: #### C MP ####[facility] Vifsxosvhl4989 [place] [address]Dr. Selenaneil Tripathi Sodium [Moles/Vol] 132 mmol/L Critically low 136-145 [facility] Comment on above: Performed By: #### C MP ####[facility] Myunyzdjuk8580 [place] [address]Dr. Selenaneil Deuce Urea nitrogen [Mass/Vol] 28.0 mg/dL Critically high 7.0-18.0 [facility] Comment on above: Performed By: #### C MP ####[facility] Vdxqanqhfs9992 [place] [address]Dr. Airam Tripathi Urea nitrogen/Creatinine [Mass ratio] 23.5 mg/mg Normal [facility] Comment on above: Performed By: #### C MP ####[facility] Esuraiwfld[address] [place], [place] [id number]. Airam Tripathi OSMOLALITYon 05-16-2022 Osmolality [Osmolality] 281 mosm/kg Normal 275-295 [facility] Comment on above: Performed By: #### O SMO ####[facility] Bplgfrdtei44[address] [place], [place] [address]Dr. Airam Deuce CBC AUTO DIFFon 05-13-2022 BASO # 0.1 103/ul Normal 0.0-0.1 [facility] Comment on above: Performed By: #### C BC ####[facility] Oksnfktylv7624[address] [place], [place] [address]Dr. Selenaneil Tripathi Basophils/100 WBC (Bld) 0.5 % Normal 0.2-2.0 [facility] Comment on above: Performed By: #### C BC ####[facility] Hrmuqhbskf[address] [place], [place] [address]Dr. Airam Deuce EO # 0.2 103/ul Normal 0.0-0.7 [facility] Comment on above: Performed By: #### C BC ####[facility] Vdczldpdhh058[address] [place], [place] [address]Dr. Selenaneil Tripathi Eosinophils/100 WBC (Bld) 2.1 % Normal 0.9-7.0 [facility] Comment on above: Performed By: #### C BC ####[facility] Gpnekdweay5827[address] [place], [place] [address]Dr. Selenaneil Tripathi Erythrocyte distribution width (RBC) [Ratio] 12.9 % Normal 11.0-15.0 [facility] Comment on above: Performed By: #### C BC ####[facility] Rduslyvnon639[address] [place], [place] [address]Dr. Airam Tripathi Hematocrit (Bld) [Volume fraction] 31.9 % Critically low 36.0-48.0 [facility] Comment on above: Performed By: #### C BC ####[facility] Nitwrlcrkq3675 [place] [address]Dr. Airam Tripathi Hemoglobin (Bld) [Mass/Vol] 9.7 g/dL Critically low 12.0-16.0 [facility] Comment on above: Performed By: #### C BC ####[facility] Wxawsgxzhu3205 [place] [address]Dr. Airam Tripathi IG # 0.06 10e3/ul Critically high 0.00-0.03 [facility] Comment on above: Performed By: #### C BC ####[facility] Fxxkwqgixs844[address] [place], [place] [address]Dr. Airam Tripathi IG % 0.7 % Critically high 0.0-0.5 [facility] Comment on above: Performed By: #### C BC ####[facility] Sfqelwyxid0213[address] [place], [place] [address]Dr. Airam Tripathi LYMPH # 1.9 103/ul Normal 1.2-3.8 [facility] Comment on above: Performed By: #### C BC ####[facility] Hvpkjnniew[address] [place], [place] [address]Dr. Airam Tripathi Lymphocytes/100 WBC (Bld) 21.1 % Normal 20.5-60.0 [facility] Comment on above: Performed By: #### C BC ####[facility] Ygeowccssu2369[address] [place], [place] [address]Dr. Airam Tripathi MANUAL DIFF REQ NO Normal [facility] Comment on above: Performed By: #### C BC ####[facility] Dxyhsykfqo069[address] [place], [place] [address]Dr. Airam Tripathi MCH (RBC) [Entitic mass] 29.7 pg Normal 26.7-34.0 [facility] Comment on above: Performed By: #### C BC ####[facility] Nglgzcyzxa425[address] [place], [place] [address]Dr. Airam Tripathi MCHC (RBC) [Mass/Vol] 30.4 g/dL Normal 29.9-35.2 [facility] Comment on above: Performed By: #### C BC ####[facility] Nwgqswcpxv5176 [place] [phone]. Airam Tripathi MCV (RBC) [Entitic vol] 97.6 fL Normal 81.0-99.0 [facility] Comment on above: Performed By: #### C BC ####[facility] Gqzyfrbinl5647 [place] [phone]. Airam Tripathi MONO # 0.6 103/ul Normal 0.3-0.8 [facility] Comment on above: Performed By: #### C BC ####[facility] Umrbwscgtv3334 [place] [phone]. Airam Deuce Monocytes/100 WBC (Bld) 6.8 % Normal 1.7-12.0 [facility] Comment on above: Performed By: #### C BC ####[facility] Ffsukfcaof8[address] [place], [place] [address]Dr. Airam Tripathi NEUT # 6.3 103/ul Normal 1.4-6.5 [facility] Comment on above: Performed By: #### C BC ####[facility] Jhnpudxxcz[address] [place], [place] [id number]. Selenaneil Tripathi Neutrophils/100 WBC (Bld) 68.8 % Normal 43.0-75.0 [facility] Comment on above: Performed By: #### C BC ####[facility] Mcfrnjcguc[address] [place], [place] [id number]. Airam Deuce Platelet mean volume (Bld) [Entitic vol] 9.6 fL Normal 9.5-13.5 [facility] Comment on above: Performed By: #### C BC ####[facility] Vufokkgsww4[address] [place], [place] [id number]. Selenaneil Deuce PLT 295 103/ul Normal 150-450 [facility] Comment on above: Performed By: #### C BC ####[facility] Dcbhyuyvqu0597 [place] [phone]. Airam Tripathi RBC 3.27 106/ul Critically low 4.20-5.40 [facility] Comment on above: Performed By: #### C BC ####[facility] Eqxduivtut4395 [place] [address]Dr. Airam Tripathi WBC 9.1 103/ul Normal 4.0-11.0 [facility] Comment on above: Performed By: #### C BC ####[facility] Wcyjhwggtn4513 [place] [address]Dr. Airam Tripathi PROF 14(COMP METB)on 05-13- 022 Albumin [Mass/Vol] 3.3 g/dL Critically low 3.4-5.0 [facility] Comment on above: Performed By: #### C MP ####[facility] Xcbsargqht4425[address] [place], [place] [address]Dr. Airam Tripathi Albumin/Globulin [Mass ratio] 1.0 {ratio} Normal [facility] Comment on above: Performed By: #### C MP ####[facility] Vecmklnwxi3427[address] [place], [place] [address]Dr. Airam Tripathi ALP [Catalytic activity/Vol] 152 U/L Critically high 46-116 [facility] Comment on above: Performed By: #### C MP ####[facility] Avgkyekbvf026[address] [place], [place] [address]Dr. Airam Tripathi ALT [Catalytic activity/Vol] 23 U/L Normal 14-59 [facility] Comment on above: Performed By: #### C MP ####[facility] Rvjazamsdm226[address] [place], [place] [address]Dr. Airam Tripathi Anion gap [Moles/Vol] 12.0 mmol/L Normal [facility] Comment on above: Performed By: #### C MP ####[facility] Ordgaftqos386[address] [place], [place] [address]Dr. Airam Tripathi AST [Catalytic activity/Vol] 25 U/L Normal 15-37 [facility] Comment on above: Performed By: #### C MP ####[facility] Xvhkmntpzd4027[address] [place], [place] [address]Dr. Airam Tripathi Bilirubin [Mass/Vol] 0.2 mg/dL Normal 0.2-1.0 [facility] Comment on above: Performed By: #### C MP ####[facility] Qowwumolzw0245 [place] [phone]. Airam Tripathi Calcium [Mass/Vol] 8.2 mg/dL Critically low 8.5-10.1 [facility] Comment on above: Performed By: #### C MP ####[facility] Pridxnwiks5949 [place] [address]Dr. Airam Tripathi Chloride [Moles/Vol] 100 mmol/L Normal 98-107 [facility] Comment on above: Performed By: #### C MP ####[facility] Iwvbactdmn6960 [place] [address]Dr. Airam Tripathi CO2 [Moles/Vol] 24.8 mmol/L Normal 21.0-32.0 [facility] Comment on above: Performed By: #### C MP ####[facility] Lzowjecxvx7025[address] [place], [place] [address]Dr. Airam Tripathi Creatinine [Mass/Vol] 1.46 mg/dL Critically high 0.55-1.02 [facility] Comment on above: Performed By: #### C MP ####[facility] Bokyqfgvau9[address] [place], [place] [address]Dr. Airam Tripathi EGFR-AF [place] 44 mL/min/1.73m2 Critically low >=60 [facility] Comment on above: Performed By: #### C MP ####[facility] Syjdcnsakz[address] [place], [place] [address]Dr. Airam Tripathi EGFR-NON AF [place] 37 mL/min/1.73m2 Critically low >=60 [facility] Comment on above: Performed By: #### C MP ####[facility] Ignipyhfht480[address] [place], [place] [address]Dr. Airam Tripathi Globulin (S) [Mass/Vol] 3.3 g/dL Normal [facility] Comment on above: Performed By: #### C MP ####[facility] Muerotmmbh395[address] [place], [place] [address]Dr. Airam Tripathi Glucose [Mass/Vol] 86 mg/dL Normal 74-106 [facility] Comment on above: Performed By: #### C MP ####[facility] Jbgeybwfmz1485 [place] [address]Dr. Airam Tripathi Potassium [Moles/Vol] 4.8 mmol/L Normal 3.5-5.1 [facility] Comment on above: Performed By: #### C MP ####[facility] Jqeinphlsh4706 [place] [address]Dr. Selenaneil Deuce Protein [Mass/Vol] 6.6 g/dL Normal 6.4-8.2 [facility] Comment on above: Performed By: #### C MP ####[facility] Veqbrcszby328[address] [place], [place] [address]Dr. Selenaneil Deuce Sodium [Moles/Vol] 132 mmol/L Critically low 136-145 [facility] Comment on above: Performed By: #### C MP ####[facility] Dgubsozatz64[address] [place], [place] [address]Dr. Airam Tripathi Urea nitrogen [Mass/Vol] 34.0 mg/dL Critically high 7.0-18.0 [facility] Comment on above: Performed By: #### C MP ####[facility] Knbilidfzz445[address] [place], [place] [address]Dr. Airam Deuce Urea nitrogen/Creatinine [Mass ratio] 23.3 mg/mg Normal [facility] Comment on above: Performed By: #### C MP ####[facility] Nlvdvtgast[address] [place], [place] [address]Dr. Airam Tripathi OSMOLALITYon 05-06-2022 Osmolality [Osmolality] 284 mosm/kg Normal 275-295 [facility] Comment on above: Performed By: #### O SMO ####[facility] Zsdlqbuznh195[address] [place], [place] [address]Dr. Airam Tripathi XR LSPINE MIN 4 VIEWSon 11 XR LSPINE MIN 4 VIEWS Normal [facility] CBC AUTO DIFFon 05-03-2022 BASO # 0.1 103/ul Normal 0.0-0.1 [facility] Comment on above: Performed By: #### C BC ####[facility] Dyuhmszemo386[address] [place], [place] [address]Dr. Airam Tripathi Basophils/100 WBC (Bld) 0.6 % Normal 0.2-2.0 [facility] Comment on above: Performed By: #### C BC ####[facility] Khphugyoru133[address] [place], [place] [address]Dr. Airam Tripathi EO # 0.3 103/ul Normal 0.0-0.7 [facility] Comment on above: Performed By: #### C BC ####[facility] Dmpbexxrdl137[address] [place], [place] [address]Dr. Airam Tripathi Eosinophils/100 WBC (Bld) 4.2 % Normal 0.9-7.0 [facility] Comment on above: Performed By: #### C BC ####[facility] Eujybdvcno623[address] [place], [place] [address]Dr. Airam Tripathi Erythrocyte distribution width (RBC) [Ratio] 13.4 % Normal 11.0-15.0 [facility] Comment on above: Performed By: #### C BC ####[facility] Jmhulnggkv[address] [place], [place] [address]Dr. Airam Tripathi Hematocrit (Bld) [Volume fraction] 30.7 % Critically low 36.0-48.0 [facility] Comment on above: Performed By: #### C BC ####[facility] Mnhomolkvs[address] [place], [place] [address]Dr. Airam Tripathi Hemoglobin (Bld) [Mass/Vol] 9.6 g/dL Critically low 12.0-16.0 [facility] Comment on above: Performed By: #### C BC ####[facility] Cmbcdnzkax[address] [place], [place] [address]Dr. Airam Tripathi IG # 0.05 10e3/ul Critically high 0.00-0.03 [facility] Comment on above: Performed By: #### C BC ####[facility] Limfbrtutw[address] [place], [place] [address]Dr. Airam Tripathi IG % 0.6 % Critically high 0.0-0.5 [facility] Comment on above: Performed By: #### C BC ####[facility] Ivtmfzsdrm8095 [place] [phone]. Selenaneil Tripathi LYMPH # 1.9 103/ul Normal 1.2-3.8 [facility] Comment on above: Performed By: #### C BC ####[facility] Lhhiagvkwu2675 [place] [address]Dr. Airam Tripathi Lymphocytes/100 WBC (Bld) 23.5 % Normal 20.5-60.0 [facility] Comment on above: Performed By: #### C BC ####[facility] Fbmeagjfvq0448 [place] [address]Dr. Airam Tripathi MANUAL DIFF REQ NO Normal [facility] Comment on above: Performed By: #### C BC ####[facility] Sjberuhjep025[address] [place] [address]Dr. Selenaneil Tripathi MCH (RBC) [Entitic mass] 30.8 pg Normal 26.7-34.0 [facility] Comment on above: Performed By: #### C BC ####[facility] Jxdckyhiex[address] [place], [place] [address]Dr. Selenaneil Tripathi MCHC (RBC) [Mass/Vol] 31.3 g/dL Normal 29.9-35.2 [facility] Comment on above: Performed By: #### C BC ####[facility] Xbzyhhvpnq1636 [place] [address]Dr. Airam Tripathi MCV (RBC) [Entitic vol] 98.4 fL Normal 81.0-99.0 [facility] Comment on above: Performed By: #### C BC ####[facility] R[address]azycso[address] [place] [address]Dr. Airam Tripathi MONO # 0.6 103/ul Normal 0.3-0.8 [facility] Comment on above: Performed By: #### C BC ####[facility] Lgubpylrgo[address] [place], [place] [address]Dr. Airam Tripathi Monocytes/100 WBC (Bld) 7.4 % Normal 1.7-12.0 [facility] Comment on above: Performed By: #### C BC ####[facility] Eixqglpixs[address] [place] [address]Dr. Airam Tripathi NEUT # 5.0 103/ul Normal 1.4-6.5 [facility] Comment on above: Performed By: #### C BC ####[facility] Gdfyjfblcc[address] [place] [address]Dr. Airam Tripathi Neutrophils/100 WBC (Bld) 63.7 % Normal 43.0-75.0 [facility] Comment on above: Performed By: #### C BC ####[facility] Ymghdgyfsm26[address] [place] [address]Dr. Airam Tripathi Platelet mean volume (Bld) [Entitic vol] 9.5 fL Normal 9.5-13.5 [facility] Comment on above: Performed By: #### C BC ####[facility] Ayzbzxhgxa25[address] [place], [place] [address]Dr. Airam Deuce PLT 280 103/ul Normal 150-450 [facility] Comment on above: Performed By: #### C BC ####[facility] Jrrcygumqp74[address] [place], [place] [address]Dr. Airam Deuce RBC 3.12 106/ul Critically low 4.20-5.40 [facility] Comment on above: Performed By: #### C BC ####[facility] Xtmzsshxes379[address] [place], [place] [address]Dr. Airam Tripathi WBC 7.9 103/ul Normal 4.0-11.0 [facility] Comment on above: Performed By: #### C BC ####[facility] Eodvqdsjgs13[address] [place], [place] [address]DrKianna Tripathi PROF 14(COMP METB)on 022 Albumin [Mass/Vol] 3.1 g/dL Critically low 3.4-5.0 [facility] Comment on above: Performed By: #### C MP ####[facility] Suqwdvukjt[address] [place] [address]Dr. Selenaneil Deuce Albumin/Globulin [Mass ratio] 0.9 {ratio} Normal [facility] Comment on above: Performed By: #### C MP ####[facility] Yfwcfqfsmy87[address] [place] [address]Dr. Airam Tripathi ALP [Catalytic activity/Vol] 140 U/L Critically high 46-116 [facility] Comment on above: Performed By: #### C MP ####[facility] Ixchlfevjw[address] [place], [place] [address]Dr. Airam Tripathi ALT [Catalytic activity/Vol] 24 U/L Normal 14-59 [facility] Comment on above: Performed By: #### C MP ####[facility] Likmtobbcq4919[address] [place], [place] [address]Dr. Airam Deuce Anion gap [Moles/Vol] 11.2 mmol/L Normal [facility] Comment on above: Performed By: #### C MP ####[facility] Aczmussamo[address] [place], [place] [address]Dr. Airam Deuce AST [Catalytic activity/Vol] 26 U/L Normal 15-37 [facility] Comment on above: Performed By: #### C MP ####[facility] Bkhmbkicfr30[address] [place], [place] [address]Dr. Airam Deuce Bilirubin [Mass/Vol] 0.2 mg/dL Normal 0.2-1.0 [facility] Comment on above: Performed By: #### C MP ####[facility] Ubygrteuvk9[address] [place], [place] [address]Dr. Airam Deuce Calcium [Mass/Vol] 8.3 mg/dL Critically low 8.5-10.1 [facility] Comment on above: Performed By: #### C MP ####[facility] Nymrbbipth926[address] [place], [place] [address]Dr. Airam Deuce Chloride [Moles/Vol] 101 mmol/L Normal 98-107 [facility] Comment on above: Performed By: #### C MP ####[facility] Dtciajhcnd896[address] [place], [place] [address]Dr. Airam Deuce CO2 [Moles/Vol] 25.5 mmol/L Normal 21.0-32.0 [facility] Comment on above: Performed By: #### C MP ####[facility] Fvgmoemqbj200[address] [place], [place] [address]Dr. Airam Tripathi Creatinine [Mass/Vol] 1.43 mg/dL Critically high 0.55-1.02 [facility] Comment on above: Performed By: #### C MP ####[facility] Ukvqlewzhl59[address] [place] [address]Dr. Selenaneil Deuce EGFR-AF [place] 45 mL/min/1.73m2 Critically low >=60 [facility] Comment on above: Performed By: #### C MP ####[facility] Iyhbcacacx49[address] [place] [address]Dr. Airam Tripathi EGFR-NON AF [place] 37 mL/min/1.73m2 Critically low >=60 [facility] Comment on above: Performed By: #### C MP ####[facility] Apvjmovkzs2617[address] [place], [place] [address]Dr. Airam Tripathi Globulin (S) [Mass/Vol] 3.3 g/dL Normal [facility] Comment on above: Performed By: #### C MP ####[facility] Axixtzrdyk8817[address] [place], [place] [address]Dr. Airam Tripathi Glucose [Mass/Vol] 74 mg/dL Normal 74-106 [facility] Comment on above: Performed By: #### C MP ####[facility] Auvvlqjcfs554[address] [place], [place] [address]Dr. Airam Tripathi Potassium [Moles/Vol] 4.7 mmol/L Normal 3.5-5.1 [facility] Comment on above: Performed By: #### C MP ####[facility] Nwbiafaqwc432[address] [place], [place] [address]Dr. Airam Tripathi Protein [Mass/Vol] 6.4 g/dL Normal 6.4-8.2 [facility] Comment on above: Performed By: #### C MP ####[facility] Uckyuibmrd464[address] [place], [place] [address]Dr. Airam Tripathi Sodium [Moles/Vol] 133 mmol/L Critically low 136-145 [facility] Comment on above: Performed By: #### C MP ####[facility] Aqmuwsjzds35480[address] [place], [place] [address]Dr. Airam Tripathi Urea nitrogen [Mass/Vol] 38.0 mg/dL Critically high 7.0-18.0 [facility] Comment on above: Performed By: #### C MP ####[facility] Kmqxkvgrcs19300[address] [place], [place] [address]Dr. Airam Tripathi Urea nitrogen/Creatinine [Mass ratio] 26.6 mg/mg Normal [facility] Comment on above: Performed By: #### C MP ####[facility] Wnbfiyphdl523[address] [place], [place] [address]Dr. Airam Tripathi OSMOLALITYon 04-29-2022 Osmolality [Osmolality] 292 mosm/kg Normal 275-295 [facility] Comment on above: Performed By: #### O SMO ####[facility] Xlsbqmjfii859[address] [place], [place] [address]Dr. Airam Tripathi CBC AUTO DIFFon 04-28-2022 BASO # 0.0 103/ul Normal 0.0-0.1 [facility] Comment on above: Performed By: #### C BC ####[facility] Ruhftsleme118[address] [place], [place] [address]Dr. Airam Tripathi Basophils/100 WBC (Bld) 0.5 % Normal 0.2-2.0 [facility] Comment on above: Performed By: #### C BC ####[facility] Gmiiikpvyu5027[address] [place], [place] [address]Dr. Airam Tripathi EO # 0.2 103/ul Normal 0.0-0.7 [facility] Comment on above: Performed By: #### C BC ####[facility] Peqhqjyuxu190[address] [place], [place] [address]Dr. Airam Tripathi Eosinophils/100 WBC (Bld) 3.4 % Normal 0.9-7.0 [facility] Comment on above: Performed By: #### C BC ####[facility] Renqifcffy588[address] [place], [place] [address]Dr. Airam Tripathi Erythrocyte distribution width (RBC) [Ratio] 13.4 % Normal 11.0-15.0 [facility] Comment on above: Performed By: #### C BC ####[facility] Dxyrkkwifw88[address] [place] [address]Dr. Airam Tripathi Hematocrit (Bld) [Volume fraction] 31.6 % Critically low 36.0-48.0 [facility] Comment on above: Performed By: #### C BC ####[facility] Oeaztxvxlz4782 [place] [address]Dr. Airam Deuce Hemoglobin (Bld) [Mass/Vol] 9.8 g/dL Critically low 12.0-16.0 [facility] Comment on above: Performed By: #### C BC ####[facility] Povllelvio7539 [place] [address]Dr. Airam Tripathi IG # 0.02 10e3/ul Normal 0.00-0.03 [facility] Comment on above: Performed By: #### C BC ####[facility] Ywgcoygysh3419[address] [place], [place] [address]Dr. Airam Tripathi IG % 0.3 % Normal 0.0-0.5 [facility] Comment on above: Performed By: #### C BC ####[facility] Cwjktmgknr8720 [place] [address]Dr. Airam Tripathi LYMPH # 1.3 103/ul Normal 1.2-3.8 [facility] Comment on above: Performed By: #### C BC ####[facility] Qfjcbozguw770[address] [place], [place] [address]Dr. Airam Tripathi Lymphocytes/100 WBC (Bld) 21.7 % Normal 20.5-60.0 [facility] Comment on above: Performed By: #### C BC ####[facility] Pvtyvbirbb904[address] [place], [place] [address]Dr. Selenaneil Tripathi MANUAL DIFF REQ NO Normal [facility] Comment on above: Performed By: #### C BC ####[facility] Dvsxxcvlxn664[address] [place], [place] [address]Dr. Selenaneil Tripathi MCH (RBC) [Entitic mass] 30.7 pg Normal 26.7-34.0 [facility] Comment on above: Performed By: #### C BC ####[facility] Jwkwpvxxuj[address] [place], [place] [id number]. Airam Tripathi MCHC (RBC) [Mass/Vol] 31.0 g/dL Normal 29.9-35.2 [facility] Comment on above: Performed By: #### C BC ####[facility] Afetgignhp4555 [place] [phone]. Airam Tripathi MCV (RBC) [Entitic vol] 99.1 fL Critically high 81.0-99.0 [facility] Comment on above: Performed By: #### C BC ####[facility] Dlmwrxigbb3109 [place] [id number]. Airam Deuce MONO # 0.3 103/ul Normal 0.3-0.8 [facility] Comment on above: Performed By: #### C BC ####[facility] Hpwinhxdna3511 [place] [address]Dr. Selenaneil Tripathi Monocytes/100 WBC (Bld) 5.2 % Normal 1.7-12.0 [facility] Comment on above: Performed By: #### C BC ####[facility] Cnmowfgjnz201[address] [place], [place] [address]Dr. Airam Deuce NEUT # 4.1 103/ul Normal 1.4-6.5 [facility] Comment on above: Performed By: #### C BC ####[facility] Fxegpbyzaq3655 [place] [phone]. Airam Deuce Neutrophils/100 WBC (Bld) 68.9 % Normal 43.0-75.0 [facility] Comment on above: Performed By: #### C BC ####[facility] Nhpktcykcy5363 [place] [address]Dr. Airam Deuce Platelet mean volume (Bld) [Entitic vol] 9.8 fL Normal 9.5-13.5 [facility] Comment on above: Performed By: #### C BC ####[facility] Ecjbkuhjda8771 [place] [phone]. Airam Deuce PLT 329 103/ul Normal 150-450 [facility] Comment on above: Performed By: #### C BC ####[facility] Bwqxoevzzh[address] [place] [address]Dr. Airam Deuce RBC 3.19 106/ul Critically low 4.20-5.40 [facility] Comment on above: Performed By: #### C BC ####[facility] Dznimltbve2165 [place] [address]Dr. Selenaneil Deuce WBC 5.9 103/ul Normal 4.0-11.0 [facility] Comment on above: Performed By: #### C BC ####[facility] Dnswgynvrn[address] [place], [place] [address]Dr. Airam Tripathi PROF 14(COMP METB)on 022 Albumin [Mass/Vol] 2.9 g/dL Critically low 3.4-5.0 [facility] Comment on above: Performed By: #### C MP ####[facility] Rppblkjplf428[address] [place], [place] [address]Dr. Airam Tripathi Albumin/Globulin [Mass ratio] 0.9 {ratio} Normal [facility] Comment on above: Performed By: #### C MP ####[facility] Ywhmazryan764[address] [place], [place] [address]Dr. Selenaneil Tripathi ALP [Catalytic activity/Vol] 127 U/L Critically high 46-116 [facility] Comment on above: Performed By: #### C MP ####[facility] Ozxpbccyhp430[address] [place], [place] [address]Dr. Airam Tripathi ALT [Catalytic activity/Vol] 22 U/L Normal 14-59 [facility] Comment on above: Performed By: #### C MP ####[facility] Fwmxhgfzbl923[address] [place], [place] [address]Dr. Airam Tripathi Anion gap [Moles/Vol] 6.7 mmol/L Normal [facility] Comment on above: Performed By: #### C MP ####[facility] Orqqbcsqrt05220[address] [place], [place] [address]Dr. Airam Tripathi AST [Catalytic activity/Vol] 24 U/L Normal 15-37 [facility] Comment on above: Performed By: #### C MP ####[facility] Ymipebowha11[address] [place], [place] [address]Dr. Airam Tripathi Bilirubin [Mass/Vol] 0.2 mg/dL Normal 0.2-1.0 [facility] Comment on above: Performed By: #### C MP ####[facility] Olafwjubrc116[address] [place], [place] [address]Dr. Airam Tripathi Calcium [Mass/Vol] 8.2 mg/dL Critically low 8.5-10.1 [facility] Comment on above: Performed By: #### C MP ####[facility] Qlznzltoui049008 [address] [place], [place] [address]Dr. Airam Tripathi Chloride [Moles/Vol] 105 mmol/L Normal 98-107 [facility] Comment on above: Performed By: #### C MP ####[facility] Hmaxxnyext616[address] [place], [place] [address]Dr. Airam Tripathi CO2 [Moles/Vol] 28.2 mmol/L Normal 21.0-32.0 [facility] Comment on above: Performed By: #### C MP ####[facility] Lbrrkrpvhl27360[address] [place], [place] [address]Dr. Airam Tripathi Creatinine [Mass/Vol] 1.22 mg/dL Critically high 0.55-1.02 [facility] Comment on above: Performed By: #### C MP ####[facility] Hyxwmcjfqt930[address] [place], [place] [address]Dr. Airam Tripathi EGFR-AF [place] 54 mL/min/1.73m2 Critically low >=60 [facility] Comment on above: Performed By: #### C MP ####[facility] Ahiusgovkk6619[address] [place], [place] [address]Dr. Airam Tripathi EGFR-NON AF [place] 45 mL/min/1.73m2 Critically low >=60 [facility] Comment on above: Performed By: #### C MP ####[facility] Xrrgnbimud046[address] [place], [place] [address]Dr. Airam Tripathi Globulin (S) [Mass/Vol] 3.2 g/dL Normal [facility] Comment on above: Performed By: #### C MP ####[facility] Roufvgyxyy5[address] [place] [address]Dr. Airam Tripathi Glucose [Mass/Vol] 77 mg/dL Normal 74-106 [facility] Comment on above: Performed By: #### C MP ####[facility] Welfqenqkm7913 [place] [address]Dr. Airam Tripathi Potassium [Moles/Vol] 4.9 mmol/L Normal 3.5-5.1 [facility] Comment on above: Performed By: #### C MP ####[facility] Jdzivizvhi023[address] [place], [place] [address]Dr. Airam Tripathi Protein [Mass/Vol] 6.1 g/dL Critically low 6.4-8.2 [facility] Comment on above: Performed By: #### C MP ####[facility] Zqpjnkdlpu996[address] [place], [place] [address]Dr. Airam Tripathi Sodium [Moles/Vol] 135 mmol/L Critically low 136-145 [facility] Comment on above: Performed By: #### C MP ####[facility] Ygbyrdlmsh65350[address] [place], [place] [address]Dr. Airam Tripathi Urea nitrogen [Mass/Vol] 30.0 mg/dL Critically high 7.0-18.0 [facility] Comment on above: Performed By: #### C MP ####[facility] Tknmhjlvdr088[address] [place], [place] [address]Dr. Airam Tripathi Urea nitrogen/Creatinine [Mass ratio] 24.6 mg/mg Normal [facility] Comment on above: Performed By: #### C MP ####[facility] Xshgxpqguv576[address] [place], [place] [address]Dr. Airam Tripathi OSMOLALITYon 04-23-2022 Osmolality [Osmolality] 289 mosm/kg Normal 275-295 [facility] Comment on above: Performed By: #### O SMO ####[facility] Ymcydurjpz802[address] [place], [place] [address]Dr. Airam Tripathi CBC AUTO DIFFon 04-20-2022 BASO # 0.0 103/ul Normal 0.0-0.1 [facility] Comment on above: Performed By: #### C BC ####[facility] Vfgyqtsbyz7992 [place] [phone]. Airam Tripathi Basophils/100 WBC (Bld) 0.4 % Normal 0.2-2.0 [facility] Comment on above: Performed By: #### C BC ####[facility] Kzhbcnytki7082 [place] [phone]. Airam Tripathi EO # 0.2 103/ul Normal 0.0-0.7 [facility] Comment on above: Performed By: #### C BC ####[facility] Bfvviiujfj[address] [place], [place] [id number]. Airam Tripathi Eosinophils/100 WBC (Bld) 3.1 % Normal 0.9-7.0 [facility] Comment on above: Performed By: #### C BC ####[facility] Cdktyakddo785[address] [place], [place] [address]Dr. Airam Tripathi Erythrocyte distribution width (RBC) [Ratio] 13.8 % Normal 11.0-15.0 [facility] Comment on above: Performed By: #### C BC ####[facility] Uyoncjwzdx[address] [place], [place] [address]Dr. Airma Tripathi Hematocrit (Bld) [Volume fraction] 29.5 % Critically low 36.0-48.0 [facility] Comment on above: Performed By: #### C BC ####[facility] Btujgdwquu2972 [place] [phone]. Airam Tripathi Hemoglobin (Bld) [Mass/Vol] 9.2 g/dL Critically low 12.0-16.0 [facility] Comment on above: Performed By: #### C BC ####[facility] Jhhtashibg[address] [place], [place] [address]Dr. Airam Tripathi IG # 0.02 10e3/ul Normal 0.00-0.03 [facility] Comment on above: Performed By: #### C BC ####[facility] Emibrqzsdj[address] [place], [place] [id number]. Airam Tripathi IG % 0.4 % Normal 0.0-0.5 [facility] Comment on above: Performed By: #### C BC ####[facility] Ewytvxizey3880 [place] [phone]. Airam Tripathi LYMPH # 0.8 103/ul Critically low 1.2-3.8 [facility] Comment on above: Performed By: #### C BC ####[facility] Elbunzjakq3311 [place] [phone]. Airam Tripathi Lymphocytes/100 WBC (Bld) 14.0 % Critically low 20.5-60.0 [facility] Comment on above: Performed By: #### C BC ####[facility] Wtalowxgww9964 [place] [address]Dr. Airam Tripathi MANUAL DIFF REQ NO Normal [facility] Comment on above: Performed By: #### C BC ####[facility] Jnonieeyku6922 [place] [address]Dr. Airam Tripathi MCH (RBC) [Entitic mass] 30.4 pg Normal 26.7-34.0 [facility] Comment on above: Performed By: #### C BC ####[facility] Cionqggeup3258 [place] [phone]. Airam Tripathi MCHC (RBC) [Mass/Vol] 31.2 g/dL Normal 29.9-35.2 [facility] Comment on above: Performed By: #### C BC ####[facility] Wjdlchqpnk8456 [place] [phone]. Airam Tripathi MCV (RBC) [Entitic vol] 97.4 fL Normal 81.0-99.0 [facility] Comment on above: Performed By: #### C BC ####[facility] Vapewlqduq260[address] [place] [address]Dr. Airam Tripathi MONO # 0.3 103/ul Normal 0.3-0.8 [facility] Comment on above: Performed By: #### C BC ####[facility] Etiuzignyc9969 [place] [address]Dr. Airam Tripathi Monocytes/100 WBC (Bld) 5.6 % Normal 1.7-12.0 [facility] Comment on above: Performed By: #### C BC ####[facility] Urnxoefncb8072 [place] [phone]. Airam Tripathi NEUT # 4.2 103/ul Normal 1.4-6.5 [facility] Comment on above: Performed By: #### C BC ####[facility] Rzvcilwhit2881 [place] [phone]. Airam Tripathi Neutrophils/100 WBC (Bld) 76.5 % Critically high 43.0-75.0 [facility] Comment on above: Performed By: #### C BC ####[facility] Kqlizfhgod5082 [place] [phone]. Airam Tripathi Platelet mean volume (Bld) [Entitic vol] 9.4 fL Critically low 9.5-13.5 [facility] Comment on above: Performed By: #### C BC ####[facility] Mznzgyicbx1817 [place] [phone]. Airam Tripathi PLT 250 103/ul Normal 150-450 [facility] Comment on above: Performed By: #### C BC ####[facility] Ubdbtsjnlk5970 [place] [phone]. Airam Tripathi RBC 3.03 106/ul Critically low 4.20-5.40 [facility] Comment on above: Performed By: #### C BC ####[facility] Pxgljdmijl3351 [place] [phone]. Airam Tripathi WBC 5.5 103/ul Normal 4.0-11.0 [facility] Comment on above: Performed By: #### C BC ####[facility] Ylfycbjmcs5160 [place] [phone]. Airam Tripathi PROF 14(COMP METB)on 022 Albumin [Mass/Vol] 2.7 g/dL Critically low 3.4-5.0 [facility] Comment on above: Performed By: #### C MP ####[facility] Bzvmujigxr5686 [place] [phone]. Airam Deuce Albumin/Globulin [Mass ratio] 0.9 {ratio} Normal [facility] Comment on above: Performed By: #### C MP ####[facility] Izikemjfzz2368 [place] [phone]. Airam Tripathi ALP [Catalytic activity/Vol] 113 U/L Normal 46-116 [facility] Comment on above: Performed By: #### C MP ####[facility] Vlsqorxbms8705 [place] [phone]. Airam Tripathi ALT [Catalytic activity/Vol] 20 U/L Normal 14-59 [facility] Comment on above: Performed By: #### C MP ####[facility] Effvqsweav7975 [place] [phone]. Airam Tripathi Anion gap [Moles/Vol] 11.1 mmol/L Normal [facility] Comment on above: Performed By: #### C MP ####[facility] Kpcmqmsfsb0227 [place] [address]Dr. Airam Tripathi AST [Catalytic activity/Vol] 19 U/L Normal 15-37 [facility] Comment on above: Performed By: #### C MP ####[facility] Lsahuzvgfn3177 [place] [address]Dr. Airam Tripathi Bilirubin [Mass/Vol] 0.2 mg/dL Normal 0.2-1.0 [facility] Comment on above: Performed By: #### C MP ####[facility] Uitbzairmy7928 [place] [address]Dr. Airam Tripathi Calcium [Mass/Vol] 8.3 mg/dL Critically low 8.5-10.1 [facility] Comment on above: Performed By: #### C MP ####[facility] Lfphjgvtqd5284 [place] [address]Dr. Airam Tripathi Chloride [Moles/Vol] 104 mmol/L Normal 98-107 [facility] Comment on above: Performed By: #### C MP ####[facility] Zsouwwjkoq9871 [place] [address]Dr. Airam Tripathi CO2 [Moles/Vol] 25.3 mmol/L Normal 21.0-32.0 [facility] Comment on above: Performed By: #### C MP ####[facility] Oyxijfcojb7460 [place] [phone]. Airam Tripathi Creatinine [Mass/Vol] 1.33 mg/dL Critically high 0.55-1.02 [facility] Comment on above: Performed By: #### C MP ####[facility] Dxxxdljvnk2701 [place], [place] [address]Ds. Airam Tripathi EGFR-AF [place] 49 mL/min/1.73m2 Critically low >=60 [facility] Comment on above: Performed By: #### C MP ####[facility] Oqukjgmjlj3726 [place] [phone]. Airam Tripathi EGFR-NON AF [place] 41 mL/min/1.73m2 Critically low >=60 [facility] Comment on above: Performed By: #### C MP ####[facility] Hjokekzrmc8529 [place] [phone]. Airam Tripathi Globulin (S) [Mass/Vol] 3.1 g/dL Normal [facility] Comment on above: Performed By: #### C MP ####[facility] Pqcmfvnspc8884 [place] [phone]. Airam Tripathi Glucose [Mass/Vol] 88 mg/dL Normal 74-106 [facility] Comment on above: Performed By: #### C MP ####[facility] Jakkrnkxss8352 [place] [phone]. Airam Tripathi Potassium [Moles/Vol] 5.4 mmol/L Critically high 3.5-5.1 [facility] Comment on above: Performed By: #### C MP ####[facility] Eszurmlzub6057 [place] [phone]. Airam Tripathi Protein [Mass/Vol] 5.8 g/dL Critically low 6.4-8.2 [facility] Comment on above: Performed By: #### C MP ####[facility] Owmmubzfxm2004 [place] [phone]. Airam Tripathi Sodium [Moles/Vol] 135 mmol/L Critically low 136-145 [facility] Comment on above: Performed By: #### C MP ####[facility] Whwazfjfmw7357 [place] [address]Dr. Airam Tripathi Urea nitrogen [Mass/Vol] 38.0 mg/dL Critically high 7.0-18.0 [facility] Comment on above: Performed By: #### C MP ####[facility] Sgpkiwssas[address] [place], [place] [address]Dr. Airam Tripathi Urea nitrogen/Creatinine [Mass ratio] 28.6 mg/mg Normal [facility] Comment on above: Performed By: #### C MP ####[facility] Sagqnoertd[address] [place], [place] [address]Dr. Airam Tripathi OSMOLALITYon 04-15-2022 Osmolality [Osmolality] 284 mosm/kg Normal 275-295 [facility] Comment on above: Performed By: #### O SMO ####[facility] Bnbzrctnoi[address] [place], [place] [address]Dr. Airam Tripathi CBC AUTO DIFFon 04-14-2022 BASO # 0.0 103/ul Normal 0.0-0.1 [facility] Comment on above: Performed By: #### C BC ####[facility] Syjrjrhdss[address] [place], [place] [address]Dr. Airam Tripathi Basophils/100 WBC (Bld) 0.5 % Normal 0.2-2.0 [facility] Comment on above: Performed By: #### C BC ####[facility] Hqkeajubrw[address] [place], [place] [address]Dr. Airam Tripathi EO # 0.3 103/ul Normal 0.0-0.7 [facility] Comment on above: Performed By: #### C BC ####[facility] Yirnxksxqm[address] [place], [place] [address]Dr. Airam Tripathi Eosinophils/100 WBC (Bld) 3.6 % Normal 0.9-7.0 [facility] Comment on above: Performed By: #### C BC ####[facility] Niewlsdwwz424[address] [place], [place] [address]Dr. Airam Tripathi Erythrocyte distribution width (RBC) [Ratio] 13.4 % Normal 11.0-15.0 [facility] Comment on above: Performed By: #### C BC ####[facility] Kdmtfmibvg[address] [place] [address]Dr. Airam Tripathi Hematocrit (Bld) [Volume fraction] 30.6 % Critically low 36.0-48.0 [facility] Comment on above: Performed By: #### C BC ####[facility] Yvrogaxord[address] [place] [address]Dr. Airam Tripathi Hemoglobin (Bld) [Mass/Vol] 9.7 g/dL Critically low 12.0-16.0 [facility] Comment on above: Performed By: #### C BC ####[facility] Xshesvrzsl[address] [place], [place] [address]Dr. Airam Tripathi IG # 0.08 10e3/ul Critically high 0.00-0.03 [facility] Comment on above: Performed By: #### C BC ####[facility] Dctgrixlmq18[address] [place], [place] [address]DrKianna Selenaneil Tripathi IG % 0.9 % Critically high 0.0-0.5 [facility] Comment on above: Performed By: #### C BC ####[facility] Ucinnyklkj198[address] [place], [place] [address]DrKianna Airam Deuce LYMPH # 2.1 103/ul Normal 1.2-3.8 [facility] Comment on above: Performed By: #### C BC ####[facility] Eafdndvdzy[address] [place], [place] [address]DrKianna Selenaneil Tripathi Lymphocytes/100 WBC (Bld) 24.2 % Normal 20.5-60.0 [facility] Comment on above: Performed By: #### C BC ####[facility] Xgpiweurqz4[address] [place], [place] [address]DrKianna Selenaneil Tripathi MANUAL DIFF REQ NO Normal [facility] Comment on above: Performed By: #### C BC ####[facility] Heqshpiqey719[address] [place], [place] [address]DrKianna Selenaneil Tripathi MCH (RBC) [Entitic mass] 30.4 pg Normal 26.7-34.0 [facility] Comment on above: Performed By: #### C BC ####[facility] Wwlmimzgzs5452 [place] [phone]. Airam Deuce MCHC (RBC) [Mass/Vol] 31.7 g/dL Normal 29.9-35.2 [facility] Comment on above: Performed By: #### C BC ####[facility] Dfpxnazjat7445 [place] [phone]. Airam Tripathi MCV (RBC) [Entitic vol] 95.9 fL Normal 81.0-99.0 [facility] Comment on above: Performed By: #### C BC ####[facility] Ywlorvccdk750[address] [place], [place] [address]Dr. Airam Tripathi MONO # 0.5 103/ul Normal 0.3-0.8 [facility] Comment on above: Performed By: #### C BC ####[facility] Xpgwkitdod594[address] [place], [place] [address]Dr. Airam Tripathi Monocytes/100 WBC (Bld) 6.0 % Normal 1.7-12.0 [facility] Comment on above: Performed By: #### C BC ####[facility] Lweoxcconr[address] [place], [place] [address]Dr. Airam Tripathi NEUT # 5.6 103/ul Normal 1.4-6.5 [facility] Comment on above: Performed By: #### C BC ####[facility] Otnvamnpxm270[address] [place], [place] [address]Dr. Airam Tripathi Neutrophils/100 WBC (Bld) 64.8 % Normal 43.0-75.0 [facility] Comment on above: Performed By: #### C BC ####[facility] Jkhtasvuco660[address] [place], [place] [address]Dr. Airam Tripathi Platelet mean volume (Bld) [Entitic vol] 9.2 fL Critically low 9.5-13.5 [facility] Comment on above: Performed By: #### C BC ####[facility] Mjkpzavqpa60[address] [place], [place] [address]Dr. Airam Tripathi PLT 296 103/ul Normal 150-450 [facility] Comment on above: Performed By: #### C BC ####[facility] Gtwugzcnds6304 [place] [phone]. Selenaneil Deuce RBC 3.19 106/ul Critically low 4.20-5.40 [facility] Comment on above: Performed By: #### C BC ####[facility] Lgnwsonzjo2854 [place] [phone]. Airam Tripathi WBC 8.6 103/ul Normal 4.0-11.0 [facility] Comment on above: Performed By: #### C BC ####[facility] Ugbnhunbsi5906 [place] [address]Dr. Airam Tripathi PROF 14(COMP METB)on 022 Albumin [Mass/Vol] 3.2 g/dL Critically low 3.4-5.0 [facility] Comment on above: Performed By: #### C MP ####[facility] Sdarmrvuxh70[address] [place], [place] [address]Dr. Airam Tripathi Albumin/Globulin [Mass ratio] 1.0 {ratio} Normal [facility] Comment on above: Performed By: #### C MP ####[facility] Sxbjxppsjv247[address] [place], [place] [address]Dr. Airam Tripathi ALP [Catalytic activity/Vol] 126 U/L Critically high 46-116 [facility] Comment on above: Performed By: #### C MP ####[facility] Xakoxhvmym199[address] [place], [place] [address]Dr. Airam Tripathi ALT [Catalytic activity/Vol] 27 U/L Normal 14-59 [facility] Comment on above: Performed By: #### C MP ####[facility] Jtbfotxvys0872 [place] [address]Dr. Airam Tripathi Anion gap [Moles/Vol] 9.6 mmol/L Normal [facility] Comment on above: Performed By: #### C MP ####[facility] Tptkikiekg1387 [place] [address]Dr. Airam Tripathi AST [Catalytic activity/Vol] 25 U/L Normal 15-37 [facility] Comment on above: Performed By: #### C MP ####[facility] Znisyeuutn2845 [place] [phone]. Airam Tripathi Bilirubin [Mass/Vol] 0.3 mg/dL Normal 0.2-1.0 [facility] Comment on above: Performed By: #### C MP ####[facility] Bvmkusqvkl4604 [place] [address]Dr. Airam Tripathi Calcium [Mass/Vol] 8.1 mg/dL Critically low 8.5-10.1 [facility] Comment on above: Performed By: #### C MP ####[facility] Lqtjvlocxf508[address] [place], [place] [address]Dr. Airam Tripathi Chloride [Moles/Vol] 100 mmol/L Normal 98-107 [facility] Comment on above: Performed By: #### C MP ####[facility] Bfdolbhjrr312[address] [place], [place] [address]Dr. Airam Tripathi CO2 [Moles/Vol] 26.5 mmol/L Normal 21.0-32.0 [facility] Comment on above: Performed By: #### C MP ####[facility] Mejvfcskbh66[address] [place], [place] [address]Dr. Airam Tripathi Creatinine [Mass/Vol] 1.52 mg/dL Critically high 0.55-1.02 [facility] Comment on above: Performed By: #### C MP ####[facility] Wrioltlnzj996[address] [place], [place] [address]Dr. Airam Tripathi EGFR-AF [place] 42 mL/min/1.73m2 Critically low >=60 [facility] Comment on above: Performed By: #### C MP ####[facility] Qnwnsrdjhr911[address] [place], [place] [address]Dr. Airam Tripathi EGFR-NON AF [place] 35 mL/min/1.73m2 Critically low >=60 [facility] Comment on above: Performed By: #### C MP ####[facility] Nfxobvkfss901[address] [place], [place] [address]Dr. Airam Tripathi Globulin (S) [Mass/Vol] 3.3 g/dL Normal [facility] Comment on above: Performed By: #### C MP ####[facility] Ekfgiwgfcp8840 [place] [address]Dr. Airam Tripathi Glucose [Mass/Vol] 75 mg/dL Normal 74-106 [facility] Comment on above: Performed By: #### C MP ####[facility] Eakrznwcmb4034 [place] [phone]. Airam Tripathi Potassium [Moles/Vol] 4.1 mmol/L Normal 3.5-5.1 [facility] Comment on above: Performed By: #### C MP ####[facility] Xvjkwydvhy8256 [place] [address]Dr. Airam Tripathi Protein [Mass/Vol] 6.5 g/dL Normal 6.4-8.2 [facility] Comment on above: Performed By: #### C MP ####[facility] Hfhoowqzgj766[address] [place], [place] [address]Dr. Airam Tripathi Sodium [Moles/Vol] 132 mmol/L Critically low 136-145 [facility] Comment on above: Performed By: #### C MP ####[facility] Bftarvlhfu324[address] [place], [place] [address]Dr. Airam Tripathi Urea nitrogen [Mass/Vol] 40.0 mg/dL Critically high 7.0-18.0 [facility] Comment on above: Performed By: #### C MP ####[facility] Ikrimlxwtz65[address] [place], [place] [address]Dr. Airam Tripathi Urea nitrogen/Creatinine [Mass ratio] 26.3 mg/mg Normal [facility] Comment on above: Performed By: #### C MP ####[facility] Xivgdfatci332[address] [place], [place] [address]Dr. Airam Tripathi OSMOLALITYon 04-10-2022 Osmolality [Osmolality] 280 mosm/kg Normal 275-295 [facility] Comment on above: Performed By: #### O SMO ####[facility] Qiqqkzrvxt522[address] [place], [place] [address]Dr. Airam Tripathi PTH INTACTon 04-09-2022 PTH, Intact 89 pg/mL Critically high 15-65 [facility] Comment on above: Performed By: #### P THINT ####[facility] Gvdzxnhsqb17[address] [place] [address]Dr. Airam Tripathi CBC W MANUAL DIFFon 04-08-20 22 ATYPICAL LYMPH # Normal [facility] Comment on above: Performed By: #### C CHRISTEN ####[facility] Ptntuuyvnk1822 [place] [phone]. Airam Tripathi ATYPICAL LYMPH % Normal [facility] Comment on above: Performed By: #### C CHRISTEN ####[facility] Wgjlqsbkpe9[address] [place] [address]Dr. Airam Tripathi BAND # Normal 0.0-0.3 [facility] Comment on above: Performed By: #### C CHRISTEN ####[facility] Oxnkfykzky[address] [place], [place] [address]Dr. Airam Tripathi BAND % Normal 0-5 [facility] Comment on above: Performed By: #### C CHRISTEN ####[facility] Aeidvbkybk[address] [place], [place] [address]Dr. Airam Tripathi BASOM # 0.00 103/ul Normal 0.00-0.10 [facility] Comment on above: Performed By: #### Jodee VELÁSQUEZ ####[facility] Jxhqawiubo18[address] [place], [place] [address]Dr. Airam Tripathi BASOM % 0.0 % Critically low 0.2-2.0 [facility] Comment on above: Performed By: #### C CHRISTEN ####[facility] Jombzczyal[address] [place], [place] [address]Dr. Airam Tripathi BLAST # Normal [facility] Comment on above: Performed By: #### C CHRISTEN ####[facility] Nivsqugnck[address] [place], [place] [address]Dr. Airam Tripathi BLAST % Normal [facility] Comment on above: Performed By: #### C CHRISTEN ####[facility] Jgporwzbus[address] [place], [place] [address]Dr. Airam Tripathi CORRECTED WBC Normal 4.0-11.0 [facility] Comment on above: Performed By: #### C CHRISTEN ####[facility] Yzudhotweu9349 [place], [place] [address]Rw. Airam Tripathi EOS # 0.00 103/ul Normal 0.00-0.70 [facility] Comment on above: Performed By: #### C CHRISTEN ####[facility] Tjeowmnmve3694 [place], [place] [address]Xi. Airam Tripathi EOS% 0.0 % Critically low 0.9-7.0 [facility] Comment on above: Performed By: #### C CHRISTEN ####[facility] Snczllzjzr0500 [place], [place] [address]Yn. Airam Tripathi HCT 29.7 % Critically low 36.0-48.0 [facility] Comment on above: Performed By: #### C CHRISTEN ####[facility] Okzqwakcoj2403 [place] [phone]. Airam Tripathi HGB 9.5 g/dl Critically low 12.0-16.0 [facility] Comment on above: Performed By: #### C CHRISTEN ####[facility] Dljjieyeib9540 [place] [phone]. Airam Tripathi LYMPHM # 0.42 103/ul Critically low 1.20-3.80 [facility] Comment on above: Performed By: #### C CHRISTEN ####[facility] Ljctkusdtv5010 [place] [phone]. Airam Tripathi LYMPHM% 7.0 % Critically low 20.5-60.0 [facility] Comment on above: Performed By: #### C CHRISTEN ####[facility] Cjrxvnctjj3360 [place], [place] [address]Gp. Airam Tripathi MCH 30.9 pg Normal 26.7-34.0 [facility] Comment on above: Performed By: #### C CHRISTEN ####[facility] Dzarvxuvfq5961 [place] [phone]. Airam Tripathi MCHC 32.0 g/dl Normal 29.9-35.2 [facility] Comment on above: Performed By: #### C CHRISTEN ####[facility] Goigigrdqy7963 [place] [phone]. Airam Tripathi MCV 96.7 fL Normal 81.0-99.0 [facility] Comment on above: Performed By: #### C CHRISTEN ####[facility] Lsjsvygzsb2763 [place] [phone]. Airam Tripathi METAMYELOCYTE # Normal [facility] Comment on above: Performed By: #### C CHRISTEN ####[facility] Wyojglwjrb8813 [place] [phone]. Airam Tripathi METAMYELOCYTE % Normal [facility] Comment on above: Performed By: #### C CHRISTEN ####[facility] Gzrpzkvznh9289 [place] [phone]. Airam Tripathi MONOM# 0.36 103/ul Normal 0.30-0.80 [facility] Comment on above: Performed By: #### C CHRISTEN ####[facility] Boaqbpqqgt[address] [place], [place] [address]Dr. Airam Tripathi MONOM% 6.0 % Normal 1.7-12.0 [facility] Comment on above: Performed By: #### C CHRISTEN ####[facility] Mwkltkhqjp[address] [place], [place] [id number]. Airam Tripathi MPV 9.5 fL Normal 9.5-13.5 [facility] Comment on above: Performed By: #### C CHRISTEN ####[facility] Zflsegkebk[address] [place], [place] [address]Dr. Airam Tripathi MYELOCYTE # Normal [facility] Comment on above: Performed By: #### C CHRISTEN ####[facility] Onbdytbabz7948 [place] [phone]. Airam Tripathi MYELOCYTE % Normal [facility] Comment on above: Performed By: #### C CHRISTEN ####[facility] Ukhxvylonf[address] [place], [place] [address]Dr. Airam Tripathi NRBC Normal [facility] Comment on above: Performed By: #### C CHRISTEN ####[facility] Hxfuotceks9189 [place] [phone]. Airam Tripathi PLT 185 103/ul Normal 150-450 [facility] Comment on above: Performed By: #### C CHRISTEN ####[facility] Zdxevgngrx4736 [place], [place] [address]Ti. Airam Tripathi RBC 3.07 106/ul Critically low 4.20-5.40 [facility] Comment on above: Performed By: #### C CHRISTEN ####[facility] Annwqebxxp7202 [place], [place] [address]Qd. Airam Tripathi RDW 13.6 % Normal 11.0-15.0 [facility] Comment on above: Performed By: #### C CHRISTEN ####[facility] Pnruzgmtpf8701 [place], [place] [address]Kb. Airam Tripathi SEG # 5.22 103/ul Normal 1.40-6.50 [facility] Comment on above: Performed By: #### C CHRISTEN ####[facility] Tzsejmetom9769 [place] [phone]. Aiarm Tripathi SEG % 87.0 % Critically high 43.0-75.0 [facility] Comment on above: Performed By: #### C CHRISTEN ####[facility] Whlihaazqh6925 [place], [place] [address]Rp. Airam Tripathi WBC 6.0 103/ul Normal 4.0-11.0 [facility] Comment on above: Performed By: #### C CHRISTEN ####[facility] Cjubvntpmq5253 [place], [place] [address]Dr. Airam Tripathi FREE THYROXINE INDEX T7on FTI 1.57 Normal 1.30-4.50 [facility] Comment on above: Performed By: #### T 7, TSH, CMP ####[facility] Zmkezczjfn3666 [place], [place] [address]Qq. Airam Tripathi T3U 32.0 % Normal 30.0-39.0 [facility] Comment on above: Performed By: #### T 7, TSH, CMP ####[facility] Rcmpfnexuf6127 [place], [place] [address]Fo. Airam Tripathi T4 [Mass/Vol] 4.90 ug/dL Normal 4.80-13.90 [facility] Comment on above: Performed By: #### T 7, TSH, CMP ####[facility] Ahfvxahltn160[address] [place], [place] [address]Dr. Airam Tripathi PROF 14(COMP METB)on 04-08- 022 Albumin [Mass/Vol] 3.0 g/dL Critically low 3.4-5.0 [facility] Comment on above: Performed By: #### T 7, TSH, CMP ####[facility] Xydzhmzotm099[address] [place], [place] [address]Dr. Airam Tripathi Albumin/Globulin [Mass ratio] 1.0 {ratio} Normal [facility] Comment on above: Performed By: #### T 7, TSH, CMP ####[facility] Cpegbddhhg284[address] [place], [place] [address]Dr. Airam Tripathi ALP [Catalytic activity/Vol] 106 U/L Normal 46-116 [facility] Comment on above: Performed By: #### T 7, TSH, CMP ####[facility] Ffvawdpneb289[address] [place], [place] [address]Dr. Airam Tripathi ALT [Catalytic activity/Vol] 20 U/L Normal 14-59 [facility] Comment on above: Performed By: #### T 7, TSH, CMP ####[facility] Ujwafxlfga9[address] [place], [place] [address]Dr. Airam Tripathi Anion gap [Moles/Vol] 10.8 mmol/L Normal [facility] Comment on above: Performed By: #### T 7, TSH, CMP ####[facility] Oepupwleud418[address] [place], [place] [address]Dr. Airam Tripathi AST [Catalytic activity/Vol] 19 U/L Normal 15-37 [facility] Comment on above: Performed By: #### T 7, TSH, CMP ####[facility] Djfbunqwzi596[address] [place], [place] [address]Dr. Airam Tripathi Bilirubin [Mass/Vol] 0.3 mg/dL Normal 0.2-1.0 [facility] Comment on above: Performed By: #### T 7, TSH, CMP ####[facility] Mprmamrhsw8913 [place] [phone]. Airam Tripathi Calcium [Mass/Vol] 8.0 mg/dL Critically low 8.5-10.1 [facility] Comment on above: Performed By: #### T 7, TSH, CMP ####[facility] Heatbqzahg3123 [place] [phone]. Airam Tripathi Chloride [Moles/Vol] 100 mmol/L Normal 98-107 [facility] Comment on above: Performed By: #### T 7, TSH, CMP ####[facility] Fctouscqow3701 [place] [phone]. Airam Tripathi CO2 [Moles/Vol] 24.3 mmol/L Normal 21.0-32.0 [facility] Comment on above: Performed By: #### T 7, TSH, CMP ####[facility] Fzmmsleeti224[address] [place], [place] [address]Dr. Airam Tripathi Creatinine [Mass/Vol] 1.12 mg/dL Critically high 0.55-1.02 [facility] Comment on above: Performed By: #### T 7, TSH, CMP ####[facility] Hsxdgnuvrd[address] [place], [place] [address]Dr. Airam Tripathi EGFR-AF [place] 60 mL/min/1.73m2 Normal >=60 [facility] Comment on above: Performed By: #### T 7, TSH, CMP ####[facility] Qmpkpzexgl[address] [place], [place] [address]Dr. Airam Tripathi EGFR-NON AF [place] 50 mL/min/1.73m2 Critically low >=60 [facility] Comment on above: Performed By: #### T 7, TSH, CMP ####[facility] Afvjkdxafm9499 [place] [phone]. Airam Tripathi Globulin (S) [Mass/Vol] 3.0 g/dL Normal [facility] Comment on above: Performed By: #### T 7, TSH, CMP ####[facility] Eybsbskjzi9053 [place] [phone]. Airam Tripathi Glucose [Mass/Vol] 76 mg/dL Normal 74-106 [facility] Comment on above: Performed By: #### T 7, TSH, CMP ####[facility] Nbkrixmpcw[address] [place], [place] [address]Dr. Airam Tripathi Potassium [Moles/Vol] 4.1 mmol/L Normal 3.5-5.1 [facility] Comment on above: Performed By: #### T 7, TSH, CMP ####[facility] Wqyhsfzbay[address] [place], [place] [address]Dr. Airam Tripathi Protein [Mass/Vol] 6.0 g/dL Critically low 6.4-8.2 [facility] Comment on above: Performed By: #### T 7, TSH, CMP ####[facility] Zvvdydwrgv589[address] [place], [place] [address]Dr. Airam Tripathi Sodium [Moles/Vol] 131 mmol/L Critically low 136-145 [facility] Comment on above: Performed By: #### T 7, TSH, CMP ####[facility] Cxfgdnizhz167[address] [place], [place] [address]Dr. Airam Tripathi Urea nitrogen [Mass/Vol] 32.0 mg/dL Critically high 7.0-18.0 [facility] Comment on above: Performed By: #### T 7, TSH, CMP ####[facility] Vuduxcdwbs056[address] [place], [place] [address]Dr. Airam Tripathi Urea nitrogen/Creatinine [Mass ratio] 28.6 mg/mg Normal [facility] Comment on above: Performed By: #### T 7, TSH, CMP ####[facility] Xbfviveirn823[address] [place], [place] [address]Dr. Airam Tripathi TSHon 04-08-2022 TSH 0.027 uIU/mL Critically low 0.358-3.74 0 [facility] Comment on above: Performed By: #### T 7, TSH, CMP ####[facility] Zedibrkspd195[address] [place], [place] [address]Dr. Airam Tripathi UA RANDOMon 04-08-2022 Bilirubin Ql (U) Negative Normal NEGATIVE [facility] Comment on above: Performed By: #### U A ####[facility] Wxiwwlwdbt2482 [place] [address]Dr. Airam Tripathi Clarity (U) CLEAR Normal CLEAR [facility] Comment on above: Performed By: #### U A ####[facility] Maetiypsbn779[address] [place], [place] [address]Dr. Airam Tripathi Color (U) LT. YELLOW Normal YELLOW [facility] Comment on above: Performed By: #### U A ####[facility] Cbjmsrfmwo296[address] [place], [place] [address]Dr. Airam Tripathi Glucose Ql (U) Negative Normal NEGATIVE [facility] Comment on above: Performed By: #### U A ####[facility] Zxygesftcx799[address] [place], [place] [address]Dr. Airam Tripathi Hemoglobin Ql (U) Negative Normal NEGATIVE [facility] Comment on above: Performed By: #### U A ####[facility] Vwmjsjqxht407[address] [place], [place] [address]Dr. Airam Tripathi Ketones Ql (U) Negative Normal NEGATIVE [facility] Comment on above: Performed By: #### U A ####[facility] Byhqagozvy900[address] [place], [place] [address]Dr. Airam Tripathi LEUKOCYTES Negative Normal NEGATIVE [facility] Comment on above: Performed By: #### U A ####[facility] Jclnkqqufd[address] [place], [place] [address]Dr. Airam Tripathi Nitrite Ql (U) Negative Normal NEGATIVE [facility] Comment on above: Performed By: #### U A ####[facility] Uhdpqmmhiq843[address] [place], [place] [address]Dr. Airam Tripathi pH (U) 6.0 [pH] Normal 5-9 [facility] Comment on above: Performed By: #### U A ####[facility] Xiqukzglfx348[address] [place], [place] [address]Dr. Airam Tripathi SPEC GRAVITY 1.010 Normal 1.005-<=1. 025 [facility] Comment on above: Performed By: #### U A ####[facility] Axptkrkltr64[address] [place], [place] [address]Dr. Airam Tripathi UA PROTEIN Negative Normal NEGATIVE/ TRACE [facility] Comment on above: Performed By: #### U A ####[facility] Quiwbdcdgh8356 [place] [address]Dr. Airam Tripathi Urobilinogen Qn (U) 0.2 {Ligia'U}/dL Normal 0.2 - 1. 0 [facility] Comment on above: Performed By: #### U A ####[facility] Pzkakqrekk347[address] [place], [place] [address]Dr. Airam Tripathi URINE T PROTEIN CREAT RATIOo n 04-08-2022 UR PROT CREAT RAT 0.32 Normal [facility] Comment on above: Performed By: #### U RTPCR ####[facility] Kytujkhcjl[address] [place], [place] [address]Dr. Airam Tripathi UR TOTAL PROTEIN <6.0 Normal <=12.0 [facility] Comment on above: Performed By: #### U RTPCR ####[facility] Eezdyfzhuf[address] [place], [place] [address]Dr. Airam Tripathi URINE CREAT 18.75 mg/dL Critically low 20.00-300. 00 [facility] Comment on above: Performed By: #### U RTPCR ####[facility] Bjmiatjpke[address] [place], [place] [address]Dr. Airam Tripathi FERRITINon 04-06-2022 Ferritin [Mass/Vol] 99.0 ng/mL Normal 8.0-252.0 [facility] Comment on above: Performed By: #### F ETIBC, VITAD, FERR ####[facility] Weqhepzxos[address] [place], [place] [address]Dr. Airam Tripathi IRON AND TIBCon 04-06-2022 % SATURATION 15.4 % Normal [facility] Comment on above: Performed By: #### F ETIBC, VITAD, FERR ####[facility] Ahbvevqtqp[address] [place], [place] [address]Dr. Airam Tripathi Iron [Mass/Vol] 43.0 ug/dL Critically low 50.0-170.0 [facility] Comment on above: Performed By: #### F ETIBC, VITAD, FERR ####[facility] Jwewuazsfq2501 [place] [phone]. Airam Tripathi TIBC DIRECT 280.0 ug/dL Normal 250.0-450. 0 [facility] Comment on above: Performed By: #### F ETIBC, VITAD, FERR ####[facility] Bzmvajctzs8337 [place] [address]Dr. Airam Tripathi PROF 14(COMP METB)on 022 Albumin [Mass/Vol] 3.2 g/dL Critically low 3.4-5.0 [facility] Comment on above: Performed By: #### C MP, URIC ####[facility] Kkwkbzdnhx8271 [place] [address]Dr. Airam Tripathi Albumin/Globulin [Mass ratio] 1.0 {ratio} Normal [facility] [facility] Comment [facility]: Performed By: #### C MP, URIC ####[facility] [address]tpwgnlvdt[address] [place] [address]Dr. Airam Tripathi ALP [Catalytic activity/Vol] 118 U/L Critically high 46-116 [facility] Comment on above: Performed By: #### C MP, URIC ####[facility] Owuuavkzug[address] [place] [address]Dr. Airam Tripathi ALT [Catalytic activity/Vol] 24 U/L Normal 14-59 [facility] Comment on above: Performed By: #### C MP, URIC ####[facility] Tqtxqaewid399[address] [place] [address]Dr. Airam Tripathi Anion gap [Moles/Vol] 14.4 mmol/L Normal [facility] Comment on above: Performed By: #### C MP, URIC ####[facility] Zibhnihfwu36[address] [place] [address]Dr. Airam Tripathi AST [Catalytic activity/Vol] 21 U/L Normal 15-37 [facility] Comment on above: Performed By: #### C MP, URIC ####[facility] Dlqcemqjqf4[address] [place] [address]Dr. Airam Tripathi Bilirubin [Mass/Vol] 0.3 mg/dL Normal 0.2-1.0 [facility] Comment on above: Performed By: #### C MP, URIC ####[facility] Mmrohygvxj4[address] [place] [address]Dr. Airam Tripathi Calcium [Mass/Vol] 8.0 mg/dL Critically low 8.5-10.1 [facility] Comment on above: Performed By: #### C MP, URIC ####[facility] Iyyoutxfmd[address] [place], [place] [address]Dr. Airam Tripathi Chloride [Moles/Vol] 98 mmol/L Normal 98-107 [facility] Comment on above: Performed By: #### C MP, URIC ####[facility] Ygxucqijjd320[address] [place], [place] [address]Dr. Airam Tripathi CO2 [Moles/Vol] 22.0 mmol/L Normal 21.0-32.0 [facility] Comment on above: Performed By: #### C MP, URIC ####[facility] Xfrxtubgxk098[address] [place], [place] [address]Dr. Airam Tripathi Creatinine [Mass/Vol] 1.86 mg/dL Critically high 0.55-1.02 [facility] Comment on above: Performed By: #### C MP, URIC ####[facility] Zdywcyotdc11[address] [place], [place] [address]Dr. Airam Tripathi EGFR-AF [place] 33 mL/min/1.73m2 Critically low >=60 [facility] Comment on above: Performed By: #### C MP, URIC ####[facility] Dmrgbohnfv006[address] [place], [place] [address]Dr. Airam Tripathi EGFR-NON AF [place] 28 mL/min/1.73m2 Critically low >=60 [facility] Comment on above: Performed By: #### C MP, URIC ####[facility] Lhaumsjlfj109[address] [place], [place] [address]Dr. Airam Tripathi Globulin (S) [Mass/Vol] 3.1 g/dL Normal [facility] Comment on above: Performed By: #### C MP, URIC ####[facility] Bkshwkgqgh995[address] [place], [place] [address]Dr. Airam Tripathi Glucose [Mass/Vol] 93 mg/dL Normal 74-106 [facility] Comment on above: Performed By: #### C MP, URIC ####[facility] Mmtdowwwmn4010 [place] [address]Dr. Airam Tripathi Potassium [Moles/Vol] 4.4 mmol/L Normal 3.5-5.1 [facility] Comment on above: Performed By: #### C MP, URIC ####[facility] Kdjauazlhm468[address] [place], [place] [address]Dr. Airam Tripathi Protein [Mass/Vol] 6.3 g/dL Critically low 6.4-8.2 [facility] Comment on above: Performed By: #### C MP, URIC ####[facility] Jmsaelwgjq348[address] [place], [place] [address]Dr. Airam Tripathi Sodium [Moles/Vol] 130 mmol/L Critically low 136-145 [facility] Comment on above: Performed By: #### C MP, URIC ####[facility] Spqdsboelw39[address] [place], [place] [address]Dr. Airam Tripathi Urea nitrogen [Mass/Vol] 49.0 mg/dL Critically high 7.0-18.0 [facility] Comment on above: Performed By: #### C MP, URIC ####[facility] Tokwjttwtk469[address] [place], [place] [address]Dr. Airam Tripathi Urea nitrogen/Creatinine [Mass ratio] 26.3 mg/mg Normal [facility] Comment on above: Performed By: #### C MP, URIC ####[facility] Mzghvoeklg684[address] [place], [place] [address]Dr. Airam Tripathi URIC ACID SERUMon 04-06-2022 Urate [Mass/Vol] 6.5 mg/dL Critically high 2.6-6.0 [facility] Comment on above: Performed By: #### C MP, URIC ####[facility] Vwmowslwkm576[address] [place], [place] [address]Dr. Airam Tripathi VITAMIN D 25 OHon 04-06-2022 VIT D 25-OH 74.5 ng/mL Normal [facility] Comment on above: Performed By: #### F ETIBC, VITAD, FERR ####[facility] Aidliqbjnq07[address] [place], [place] [address]Dr. Airam Tripathi VIT D RANGES SEE BELOW Normal [facility] Comment on above: Result Comment: <20 ng/mL Vit D deficient 20 - <30 ng/mL Vit D insufficient 30 - 100 ng/mL Vit D sufficient >100 ng/mL Potential Toxicity Performed By: #### F ETIBC, VITAD, FERR ####[facility] Xbmaaonddd128[address] [place], [place] [address]Dr. Airam Tripathi OSMOLALITYon 04-01-2022 Osmolality [Osmolality] 284 mosm/kg Normal 275-295 [facility] Comment on above: Performed By: #### O SMO ####[facility] Ltkpanmano004[address] [place], [place] [address]Dr. Airam Tripathi CBC AUTO DIFFon 03-31-2022 BASO # 0.0 103/ul Normal 0.0-0.1 [facility] Comment on above: Performed By: #### C BC ####[facility] Reupnokztj513[address] [place], [place] [address]Dr. Airam Tripathi Basophils/100 WBC (Bld) 0.3 % Normal 0.2-2.0 [facility] Comment on above: Performed By: #### C BC ####[facility] Hjjxyjqdjn755[address] [place], [place] [address]Dr. Airam Tripathi EO # 0.1 103/ul Normal 0.0-0.7 [facility] Comment on above: Performed By: #### C BC ####[facility] Kyawuphijj9614[address] [place], [place] [address]Dr. Airam Tripathi Eosinophils/100 WBC (Bld) 2.0 % Normal 0.9-7.0 [facility] Comment on above: Performed By: #### C BC ####[facility] Xahuuyusfe378[address] [place], [place] [address]Dr. Airam Tripathi Erythrocyte distribution width (RBC) [Ratio] 13.5 % Normal 11.0-15.0 [facility] Comment on above: Performed By: #### C BC ####[facility] Kotsudduid[address] [place] [address]Dr. Airam Tripathi Hematocrit (Bld) [Volume fraction] 32.5 % Critically low 36.0-48.0 [facility] Comment on above: Performed By: #### C BC ####[facility] Kufvocmdry2086 [place] [address]Dr. Airam Deuce Hemoglobin (Bld) [Mass/Vol] 10.1 g/dL Critically low 12.0-16.0 [facility] Comment on above: Performed By: #### C BC ####[facility] Ohepffqmbb4573 [place] [address]Dr. Airam Tripathi IG # 0.03 10e3/ul Normal 0.00-0.03 [facility] Comment on above: Performed By: #### C BC ####[facility] Qktknbvyzq697[address] [place], [place] [address]Dr. Airam Tripathi IG % 0.4 % Normal 0.0-0.5 [facility] Comment on above: Performed By: #### C BC ####[facility] Vlqxjwyunx[address] [place], [place] [address]Dr. Selenaneil Tripathi LYMPH # 1.6 103/ul Normal 1.2-3.8 [facility] Comment on above: Performed By: #### C BC ####[facility] Slxlbemibd255[address] [place], [place] [address]Dr. Airam Tripathi Lymphocytes/100 WBC (Bld) 22.6 % Normal 20.5-60.0 [facility] Comment on above: Performed By: #### C BC ####[facility] Myckdpfegi2401[address] [place], [place] [address]Dr. Selenaneil Tripathi MANUAL DIFF REQ NO Normal [facility] Comment on above: Performed By: #### C BC ####[facility] Lfnehwzccc97[address] [place], [place] [address]Dr. Selenaneil Tripathi MCH (RBC) [Entitic mass] 30.5 pg Normal 26.7-34.0 [facility] Comment on above: Performed By: #### C BC ####[facility] Wooatyddyv0761 [place] [id number]. Airam Tripathi MCHC (RBC) [Mass/Vol] 31.1 g/dL Normal 29.9-35.2 [facility] Comment on above: Performed By: #### C BC ####[facility] Tfogcjkhab7704 [place] [phone]. Airam Tripathi MCV (RBC) [Entitic vol] 98.2 fL Normal 81.0-99.0 [facility] Comment on above: Performed By: #### C BC ####[facility] Lzhahepmme3543 [place] [phone]. Airam Deuce MONO # 0.5 103/ul Normal 0.3-0.8 [facility] Comment on above: Performed By: #### C BC ####[facility] Sjmexgahpd9[address] [place], [place] [address]Dr. Selenaneil Tripathi Monocytes/100 WBC (Bld) 7.3 % Normal 1.7-12.0 [facility] Comment on above: Performed By: #### C BC ####[facility] Jnvaeioyug[address] [place], [place] [id number]. Airam Tripathi NEUT # 4.7 103/ul Normal 1.4-6.5 [facility] Comment on above: Performed By: #### C BC ####[facility] Hvcwvwyljq[address] [place], [place] [id number]. Airam Tripathi Neutrophils/100 WBC (Bld) 67.4 % Normal 43.0-75.0 [facility] Comment on above: Performed By: #### C BC ####[facility] Qtlvzbdetv5922 [place] [phone]. Airam Tripathi Platelet mean volume (Bld) [Entitic vol] 9.5 fL Normal 9.5-13.5 [facility] Comment on above: Performed By: #### C BC ####[facility] Yenbppvrgy[address] [place], [place] [id number]. Airam Deuce PLT 273 103/ul Normal 150-450 [facility] Comment on above: Performed By: #### C BC ####[facility] Tebwkqooox5[address] [place] [address]Dr. Airam Tripathi RBC 3.31 106/ul Critically low 4.20-5.40 [facility] Comment on above: Performed By: #### C BC ####[facility] Jcytoklmxo2970 [place] [address]Dr. Airam Tripathi WBC 7.0 103/ul Normal 4.0-11.0 [facility] Comment on above: Performed By: #### C BC ####[facility] Wkbkrcdmew5595 [place] [address]Dr. Airam Tripathi PROF 14(COMP METB)on 022 Albumin [Mass/Vol] 3.4 g/dL Normal 3.4-5.0 [facility] Comment on above: Performed By: #### C MP ####[facility] Pcypthrkqw184[address] [place], [place] [address]Dr. Airam Tripathi Albumin/Globulin [Mass ratio] 1.1 {ratio} Normal [facility] Comment on above: Performed By: #### C MP ####[facility] Jqjorcewev017[address] [place], [place] [address]Dr. Selenaneil Tripathi ALP [Catalytic activity/Vol] 107 U/L Normal 46-116 [facility] Comment on above: Performed By: #### C MP ####[facility] Cqmafruywe013[address] [place], [place] [address]Dr. Airam Tripathi ALT [Catalytic activity/Vol] 22 U/L Normal 14-59 [facility] Comment on above: Performed By: #### C MP ####[facility] Ksbpahsjhe4253 [place] [address]Dr. Airam Tripathi Anion gap [Moles/Vol] 6.8 mmol/L Normal [facility] Comment on above: Performed By: #### C MP ####[facility] Hcqdnqlqnj668[address] [place], [place] [address]Dr. Airam Tirpathi AST [Catalytic activity/Vol] 23 U/L Normal 15-37 [facility] Comment on above: Performed By: #### C MP ####[facility] Tsdxrxsnib[address] [place], [place] [address]Dr. Airam Tripathi Bilirubin [Mass/Vol] 0.2 mg/dL Normal 0.2-1.0 [facility] Comment on above: Performed By: #### C MP ####[facility] Gtvxgkkhow9[address] [place], [place] [address]Dr. Airam Tripathi Calcium [Mass/Vol] 8.4 mg/dL Critically low 8.5-10.1 [facility] Comment on above: Performed By: #### C MP ####[facility] Wqcwfvwccv[address] [place], [place] [address]Dr. Airam Tripathi Chloride [Moles/Vol] 100 mmol/L Normal 98-107 [facility] Comment on above: Performed By: #### C MP ####[facility] Ssusabkhsw814[address] [place], [place] [address]Dr. Airam Tripathi CO2 [Moles/Vol] 29.9 mmol/L Normal 21.0-32.0 [facility] Comment on above: Performed By: #### C MP ####[facility] Ksohmjvmoa906[address] [place], [place] [address]Dr. Airam Tripathi Creatinine [Mass/Vol] 1.20 mg/dL Critically high 0.55-1.02 [facility] Comment on above: Performed By: #### C MP ####[facility] Ubbwrvbrot159[address] [place], [place] [address]Dr. Airam Tripathi EGFR-AF [place] 56 mL/min/1.73m2 Critically low >=60 [facility] Comment on above: Performed By: #### C MP ####[facility] Obspeqgvgk002[address] [place], [place] [address]Dr. Airam Deuce EGFR-NON AF [place] 46 mL/min/1.73m2 Critically low >=60 [facility] Comment on above: Performed By: #### C MP ####[facility] Snljeuszxh395[address] [place], [place] [address]Dr. Airam Tripathi Globulin (S) [Mass/Vol] 3.0 g/dL Normal [facility] Comment on above: Performed By: #### C MP ####[facility] Ebmrjoylvp898[address] [place], [place] [address]Dr. Airam Tripathi Glucose [Mass/Vol] 57 mg/dL Critically low 74-106 [facility] Comment on above: Performed By: #### C MP ####[facility] Ijwvgnnjdw8591 [place] [address]Dr. Airam Tripathi Potassium [Moles/Vol] 3.7 mmol/L Normal 3.5-5.1 [facility] Comment on above: Performed By: #### C MP ####[facility] Lfomifxsvi8624 [place] [address]Dr. Airam Tripathi Protein [Mass/Vol] 6.4 g/dL Normal 6.4-8.2 [facility] Comment on above: Performed By: #### C MP ####[facility] Sxdqnpqqxc7026 [place] [address]Dr. Airam Tripathi Sodium [Moles/Vol] 133 mmol/L Critically low 136-145 [facility] Comment on above: Performed By: #### C MP ####[facility] Gfswmwfflp1259 [place] [address]Dr. Airam Tripathi Urea nitrogen [Mass/Vol] 39.0 mg/dL Critically high 7.0-18.0 [facility] Comment on above: Performed By: #### C MP ####[facility] Bwkoovuesu0576 [place] [address]Dr. Airam Tripathi Urea nitrogen/Creatinine [Mass ratio] 32.5 mg/mg Normal [facility] Comment on above: Performed By: #### C MP ####[facility] Nrantdjyvb8562 [place] [address]Dr. Airam Tripathi OSMOLALITYon 03-24-2022 Osmolality [Osmolality] 285 mosm/kg Normal 275-295 [facility] Comment on above: Performed By: #### O SMO ####[facility] Qqxwwwsgqi4796 [place] [address]Dr. Airam Tripathi CBC AUTO DIFFon 03-22-2022 BASO # 0.0 103/ul Normal 0.0-0.1 [facility] Comment on above: Performed By: #### C BC ####[facility] Fcmylluwee6913 [place] [phone]. Airam Tripathi Basophils/100 WBC (Bld) 0.4 % Normal 0.2-2.0 [facility] Comment on above: Performed By: #### C BC ####[facility] Vepqkgsvvq5372 [place] [phone]. Airam Tripathi EO # 0.2 103/ul Normal 0.0-0.7 [facility] Comment on above: Performed By: #### C BC ####[facility] M[address]qmhtdcz[address] [place], [place] [id number]. Airam Tripathi Eosinophils/100 WBC (Bld) 2.3 % Normal 0.9-7.0 [facility] Comment on above: Performed By: #### C BC ####[facility] Bjbtotsqrf43[address] [place], [place] [address]Dr. Airam Tripathi Erythrocyte distribution width (RBC) [Ratio] 13.9 % Normal 11.0-15.0 [facility] Comment on above: Performed By: #### C BC ####[facility] Iujsvjooaw[address] [place], [place] [id number]. Airam Tripathi Hematocrit (Bld) [Volume fraction] 32.6 % Critically low 36.0-48.0 [facility] Comment on above: Performed By: #### C BC ####[facility] Difqysnaax3981 [place] [phone]. Airam Tripathi Hemoglobin (Bld) [Mass/Vol] 10.3 g/dL Critically low 12.0-16.0 [facility] Comment on above: Performed By: #### C BC ####[facility] Gxhipqtofl0834 [place] [phone]. Airam Tripathi IG # 0.11 10e3/ul Critically high 0.00-0.03 [facility] Comment on above: Performed By: #### C BC ####[facility] Euigrojcpq[address] [place], [place] [id number]. Airam Tripathi IG % 1.4 % Critically high 0.0-0.5 [facility] Comment on above: Performed By: #### C BC ####[facility] Qfrsddvgsd9428 [place] [phone]. Airam Tripathi LYMPH # 1.3 103/ul Normal 1.2-3.8 [facility] Comment on above: Performed By: #### C BC ####[facility] Pgxpundqua7885 [place] [phone]. Airam Tripathi Lymphocytes/100 WBC (Bld) 15.9 % Critically low 20.5-60.0 [facility] Comment on above: Performed By: #### C BC ####[facility] Bftqlrjrsy2491 [place] [phone]. Airam Tripathi MANUAL DIFF REQ NO Normal [facility] Comment on above: Performed By: #### C BC ####[facility] Rnvretnmmz9838 [place] [address]Dr. Airam Tripathi MCH (RBC) [Entitic mass] 30.7 pg Normal 26.7-34.0 [facility] Comment on above: Performed By: #### C BC ####[facility] Pgapzkxlmr1226 [place] [phone]. Airam Tripathi MCHC (RBC) [Mass/Vol] 31.6 g/dL Normal 29.9-35.2 [facility] Comment on above: Performed By: #### C BC ####[facility] Mkzjzxxyxk7713 [place] [phone]. Airam Tripathi MCV (RBC) [Entitic vol] 97.0 fL Normal 81.0-99.0 [facility] Comment on above: Performed By: #### C BC ####[facility] Sjfpzmzcre9731 [place] [phone]. Airam Tripathi MONO # 0.6 103/ul Normal 0.3-0.8 [facility] Comment on above: Performed By: #### C BC ####[facility] Xsmkejcnwf5996 [place] [phone]. Airam Tripathi Monocytes/100 WBC (Bld) 6.9 % Normal 1.7-12.0 [facility] Comment on above: Performed By: #### C BC ####[facility] Oeqicaenco1014 [place] [phone]. Airam Tripathi NEUT # 5.9 103/ul Normal 1.4-6.5 [facility] Comment on above: Performed By: #### C BC ####[facility] Jpoyshzgoy5063 [place] [phone]. Airam Tripathi Neutrophils/100 WBC (Bld) 73.1 % Normal 43.0-75.0 [facility] Comment on above: Performed By: #### C BC ####[facility] Upnadqnvzd5599 [place] [phone]. Airam Tripathi Platelet mean volume (Bld) [Entitic vol] 9.5 fL Normal 9.5-13.5 [facility] Comment on above: Performed By: #### C BC ####[facility] Ocejamufsn8271 [place] [phone]. Airam Tripathi PLT 313 103/ul Normal 150-450 [facility] Comment on above: Performed By: #### C BC ####[facility] Jeljdjowik9515 [place] [phone]. Airam Tripathi RBC 3.36 106/ul Critically low 4.20-5.40 [facility] Comment on above: Performed By: #### C BC ####[facility] Wxtdzoajne6285 [place] [phone]. Airam Tripathi WBC 8.1 103/ul Normal 4.0-11.0 [facility] Comment on above: Performed By: #### C BC ####[facility] Rsncuszaxw9158 [place] [phone]. Airam Deuce PROF 14(COMP METB)on 022 Albumin [Mass/Vol] 3.3 g/dL Critically low 3.4-5.0 [facility] Comment on above: Performed By: #### C MP ####[facility] Oybyheggdf0390 [place] [phone]. Airam Deuce Albumin/Globulin [Mass ratio] 1.0 {ratio} Normal [facility] Comment on above: Performed By: #### C MP ####[facility] Wkvjvztahc4750 [place] [phone]. Airam Tripathi ALP [Catalytic activity/Vol] 113 U/L Normal 46-116 [facility] Comment on above: Performed By: #### C MP ####[facility] Wvwwyzmckj2625 [place] [phone]. Airam Tripathi ALT [Catalytic activity/Vol] 21 U/L Normal 14-59 [facility] Comment on above: Performed By: #### C MP ####[facility] Ipkdohluev5928 [place] [phone]. Airam Tripathi Anion gap [Moles/Vol] 12.2 mmol/L Normal [facility] Comment on above: Performed By: #### C MP ####[facility] Asfczlibmn22[address] [place], [place] [address]Dr. Airam Tripathi AST [Catalytic activity/Vol] 21 U/L Normal 15-37 [facility] Comment on above: Performed By: #### C MP ####[facility] Mosyozyvax148[address] [place], [place] [address]Dr. Airam Tripathi Bilirubin [Mass/Vol] 0.2 mg/dL Normal 0.2-1.0 [facility] Comment on above: Performed By: #### C MP ####[facility] Crpolgeqly799[address] [place], [place] [address]Dr. Airam Tripathi Calcium [Mass/Vol] 8.4 mg/dL Critically low 8.5-10.1 [facility] Comment on above: Performed By: #### C MP ####[facility] Augbiqwhmg5052 [place] [phone]. Airam Tripathi Chloride [Moles/Vol] 103 mmol/L Normal 98-107 [facility] Comment on above: Performed By: #### C MP ####[facility] Krrisnrzqv718[address] [place], [place] [address]Dr. Airam Tripathi CO2 [Moles/Vol] 24.4 mmol/L Normal 21.0-32.0 [facility] Comment on above: Performed By: #### C MP ####[facility] Xuzaisyifg7959 [place] [phone]. Airam Tripathi Creatinine [Mass/Vol] 1.11 mg/dL Critically high 0.55-1.02 [facility] Comment on above: Performed By: #### C MP ####[facility] Adpvfvmgaw3817 [place] [address]Dr. Airam Tripathi EGFR-AF [place] >60 Normal >=60 [facility] Comment on above: Performed By: #### C MP ####[facility] Ahnrpurtmj2295 [place] [address]Dr. Airam Deuce EGFR-NON AF [place] 50 mL/min/1.73m2 Critically low >=60 [facility] Comment on above: Performed By: #### C MP ####[facility] Iwyzokywfg8804 [place] [address]Dr. Airam Tripathi Globulin (S) [Mass/Vol] 3.2 g/dL Normal [facility] Comment on above: Performed By: #### C MP ####[facility] Xhdslacgfq004[address] [place], [place] [address]Dr. Airam Deuce Glucose [Mass/Vol] 84 mg/dL Normal 74-106 [facility] Comment on above: Performed By: #### C MP ####[facility] Bmjroqdroj13[address] [place], [place] [address]Dr. Airam Tripathi Potassium [Moles/Vol] 4.6 mmol/L Normal 3.5-5.1 [facility] Comment on above: Performed By: #### C MP ####[facility] Sxfbbjhypb676[address] [place], [place] [address]Dr. Airam Deuce Protein [Mass/Vol] 6.5 g/dL Normal 6.4-8.2 [facility] Comment on above: Performed By: #### C MP ####[facility] Ucngvvqjfc880[address] [place], [place] [address]Dr. Airam Tripathi Sodium [Moles/Vol] 135 mmol/L Critically low 136-145 [facility] Comment on above: Performed By: #### C MP ####[facility] Vpbppgipdp223[address] [place], [place] [address]Dr. Airam Tripathi Urea nitrogen [Mass/Vol] 39.0 mg/dL Critically high 7.0-18.0 [facility] Comment on above: Performed By: #### C MP ####[facility] Rqgefgwmmt1525 [place] [address]Dr. Airam Tripathi Urea nitrogen/Creatinine [Mass ratio] 35.1 mg/mg Normal [facility] Comment on above: Performed By: #### C MP ####[facility] Jagxmnhzpf303[address] [place], [place] [address]Dr. Airam Tripathi OSMOLALITYon 03-17-2022 Osmolality [Osmolality] 277 mosm/kg Normal 275-295 [facility] Comment on above: Performed By: #### O SMO ####[facility] Bdgsedpkyh34[address] [place], [place] [address]Dr. Airam Tripathi CBC AUTO DIFFon 03-15-2022 BASO # 0.0 103/ul Normal 0.0-0.1 [facility] Comment on above: Performed By: #### C BC ####[facility] Qyqrilvtpg146[address] [place], [place] [address]Dr. Airam Tripathi Basophils/100 WBC (Bld) 0.4 % Normal 0.2-2.0 [facility] Comment on above: Performed By: #### C BC ####[facility] Vgqdkxybdg[address] [place], [place] [address]Dr. Airam Tripathi EO # 0.1 103/ul Normal 0.0-0.7 [facility] Comment on above: Performed By: #### C BC ####[facility] Ubnqxqakte[address] [place], [place] [address]Dr. Airam Tripathi Eosinophils/100 WBC (Bld) 2.4 % Normal 0.9-7.0 [facility] Comment on above: Performed By: #### C BC ####[facility] Wryvuiveyx[address] [place], [place] [address]Dr. Airam Tripathi Erythrocyte distribution width (RBC) [Ratio] 13.9 % Normal 11.0-15.0 [facility] Comment on above: Performed By: #### C BC ####[facility] Xfhkfhjikp0334 [place] [address]Dr. Airam Tripathi Hematocrit (Bld) [Volume fraction] 31.2 % Critically low 36.0-48.0 [facility] Comment on above: Performed By: #### C BC ####[facility] Ssmrhfmaoz8687 [place] [address]Dr. Airam Tripathi Hemoglobin (Bld) [Mass/Vol] 9.9 g/dL Critically low 12.0-16.0 [facility] Comment on above: Performed By: #### C BC ####[facility] Lvwdjvuczb[address] [place], [place] [address]Dr. Airam Tripathi IG # 0.03 10e3/ul Normal 0.00-0.03 [facility] Comment on above: Performed By: #### C BC ####[facility] Ppzxtaeluo[address] [place], [place] [address]Dr. Airam Tripathi IG % 0.6 % Critically high 0.0-0.5 [facility] Comment on above: Performed By: #### C BC ####[facility] Saqmewufuv[address] [place], [place] [address]Dr. Selenaneil Tripathi LYMPH # 1.5 103/ul Normal 1.2-3.8 [facility] Comment on above: Performed By: #### C BC ####[facility] Deodlklszl[address] [place], [place] [address]Dr. Airam Tripathi Lymphocytes/100 WBC (Bld) 29.4 % Normal 20.5-60.0 [facility] Comment on above: Performed By: #### C BC ####[facility] Ubldnxthzn20[address] [place], [place] [address]Dr. Selenaneil Tripathi MANUAL DIFF REQ NO Normal [facility] Comment on above: Performed By: #### C BC ####[facility] Futvbvjlqo[address] [place], [place] [address]Dr. Selenaneil Tripathi MCH (RBC) [Entitic mass] 30.5 pg Normal 26.7-34.0 [facility] Comment on above: Performed By: #### C BC ####[facility] Zgicyteikf2918 [place] [phone]. Airam Tripathi MCHC (RBC) [Mass/Vol] 31.7 g/dL Normal 29.9-35.2 [facility] Comment on above: Performed By: #### C BC ####[facility] Vlmfeqrnnh8572 [place] [phone]. Airam Tripathi MCV (RBC) [Entitic vol] 96.0 fL Normal 81.0-99.0 [facility] Comment on above: Performed By: #### C BC ####[facility] Sksxplhqwp2002 [place] [phone]. Airam Tripathi MONO # 0.4 103/ul Normal 0.3-0.8 [facility] Comment on above: Performed By: #### C BC ####[facility] Xfodoecwca[address] [place], [place] [address]Dr. Selenaneil Tripathi Monocytes/100 WBC (Bld) 7.0 % Normal 1.7-12.0 [facility] Comment on above: Performed By: #### C BC ####[facility] Yqvhbenujb[address] [place], [place] [id number]. Airam Tripathi NEUT # 3.0 103/ul Normal 1.4-6.5 [facility] Comment on above: Performed By: #### C BC ####[facility] Kcfakepgeh4[address] [place], [place] [id number]. Airam Deuce Neutrophils/100 WBC (Bld) 60.2 % Normal 43.0-75.0 [facility] Comment on above: Performed By: #### C BC ####[facility] Nytumkycpj0091 [place] [phone]. Airam Tripathi Platelet mean volume (Bld) [Entitic vol] 9.6 fL Normal 9.5-13.5 [facility] Comment on above: Performed By: #### C BC ####[facility] Lkmzjveghw[address] [place], [place] [id number]. Airam Deuce PLT 258 103/ul Normal 150-450 [facility] Comment on above: Performed By: #### C BC ####[facility] Fzxtehelun2448 [place] [phone]. Airam Tripathi RBC 3.25 106/ul Critically low 4.20-5.40 [facility] Comment on above: Performed By: #### C BC ####[facility] Hiauedewdn5[address] [place] [address]Dr. Airam Tripathi WBC 5.0 103/ul Normal 4.0-11.0 [facility] Comment on above: Performed By: #### C BC ####[facility] Jzrgzfnacg9851 [place] [address]Dr. Airam Tripathi PROF 14(COMP METB)on 022 Albumin [Mass/Vol] 3.3 g/dL Critically low 3.4-5.0 [facility] Comment on above: Performed By: #### C MP ####[facility] Arwkqfscvi[address] [place], [place] [address]Dr. Airam Tripathi Albumin/Globulin [Mass ratio] 1.1 {ratio} Normal [facility] Comment on above: Performed By: #### C MP ####[facility] Mwsxtqulgg977[address] [place], [place] [address]Dr. Airam Tripathi ALP [Catalytic activity/Vol] 106 U/L Normal 46-116 [facility] Comment on above: Performed By: #### C MP ####[facility] Ohykwrnwgr7901[address] [place], [place] [address]Dr. Airam Tripathi ALT [Catalytic activity/Vol] 22 U/L Normal 14-59 [facility] Comment on above: Performed By: #### C MP ####[facility] Rhtgrhsugm710[address] [place], [place] [address]Dr. Airam Tripathi Anion gap [Moles/Vol] 11.4 mmol/L Normal [facility] Comment on above: Performed By: #### C MP ####[facility] Geidxuxjlf205[address] [place], [place] [address]Dr. Airam Tripathi AST [Catalytic activity/Vol] 22 U/L Normal 15-37 [facility] Comment on above: Performed By: #### C MP ####[facility] Pstszdwjvo0978 [place] [address]Dr. Airam Tripathi Bilirubin [Mass/Vol] 0.3 mg/dL Normal 0.2-1.0 [facility] Comment on above: Performed By: #### C MP ####[facility] Isdudgaihg454[address] [place], [place] [address]Dr. Airam Tripathi Calcium [Mass/Vol] 8.1 mg/dL Critically low 8.5-10.1 [facility] Comment on above: Performed By: #### C MP ####[facility] Ojpljjiyin9[address] [place], [place] [address]Dr. Airam Tripathi Chloride [Moles/Vol] 100 mmol/L Normal 98-107 [facility] Comment on above: Performed By: #### C MP ####[facility] Qypxwigumw5299[address] [place], [place] [address]Dr. Airam Tripathi CO2 [Moles/Vol] 25.6 mmol/L Normal 21.0-32.0 [facility] Comment on above: Performed By: #### C MP ####[facility] Chrlgjjtjy409[address] [place], [place] [address]Dr. Airam Tripathi Creatinine [Mass/Vol] 1.21 mg/dL Critically high 0.55-1.02 [facility] Comment on above: Performed By: #### C MP ####[facility] Bvrkzckzvn766[address] [place], [place] [address]Dr. Airam Tripathi EGFR-AF [place] 55 mL/min/1.73m2 Critically low >=60 [facility] Comment on above: Performed By: #### C MP ####[facility] Bpqbllcuak488[address] [place], [place] [address]Dr. Airam Deuce EGFR-NON AF [place] 45 mL/min/1.73m2 Critically low >=60 [facility] Comment on above: Performed By: #### C MP ####[facility] Vcezkcngkf246[address] [place], [place] [address]Dr. Airam Deuce Globulin (S) [Mass/Vol] 3.0 g/dL Normal [facility] Comment on above: Performed By: #### C MP ####[facility] Ahyhcboztj4829 [place] [address]Dr. Airam Tripathi Glucose [Mass/Vol] 84 mg/dL Normal 74-106 [facility] Comment on above: Performed By: #### C MP ####[facility] Rrhcvdmrmr425[address] [place], [place] [address]Dr. Airam Tripathi Potassium [Moles/Vol] 4.0 mmol/L Normal 3.5-5.1 [facility] Comment on above: Performed By: #### C MP ####[facility] Vjsenyamqj955[address] [place], [place] [address]Dr. Airam Tripathi Protein [Mass/Vol] 6.3 g/dL Critically low 6.4-8.2 [facility] Comment on above: Performed By: #### C MP ####[facility] Dfpssnkwvz698[address] [place], [place] [address]Dr. Airam Tripathi Sodium [Moles/Vol] 133 mmol/L Critically low 136-145 [facility] Comment on above: Performed By: #### C MP ####[facility] Stajetgjzw475[address] [place], [place] [address]Dr. Airam Tripathi Urea nitrogen [Mass/Vol] 29.0 mg/dL Critically high 7.0-18.0 [facility] Comment on above: Performed By: #### C MP ####[facility] Yajkmecmgj5216[address] [place], [place] [address]Dr. Airam Tripathi Urea nitrogen/Creatinine [Mass ratio] 24.0 mg/mg Normal [facility] Comment on above: Performed By: #### C MP ####[facility] Pzxvrrwgtk09[address] [place], [place] [address]Dr. Airam Tripathi OSMOLALITYon 03-12-2022 Osmolality [Osmolality] 285 mosm/kg Normal 275-295 [facility] Comment on above: Performed By: #### O SMO ####[facility] Krjtrjdcdk026[address] [place], [place] [address]Dr. Airam Tripathi CBC AUTO DIFFon 03-10-2022 BASO # 0.0 103/ul Normal 0.0-0.1 [facility] Comment on above: Performed By: #### C BC ####[facility] Tvbzlclonk7435 [place] [phone]. Airam Tripathi Basophils/100 WBC (Bld) 0.3 % Normal 0.2-2.0 [facility] Comment on above: Performed By: #### C BC ####[facility] Avjthfbvvz[address] [place], [place] [id number]. Airam Tripathi EO # 0.2 103/ul Normal 0.0-0.7 [facility] Comment on above: Performed By: #### C BC ####[facility] Ruzgwnznbs700[address] [place], [place] [address]Dr. Airam Tripathi Eosinophils/100 WBC (Bld) 2.7 % Normal 0.9-7.0 [facility] Comment on above: Performed By: #### C BC ####[facility] Nodeaxyffh666[address] [place], [place] [address]Dr. Airam Tripathi Erythrocyte distribution width (RBC) [Ratio] 14.4 % Normal 11.0-15.0 [facility] Comment on above: Performed By: #### C BC ####[facility] Splmbwpgms030[address] [place], [place] [address]Dr. Airam Tripathi Hematocrit (Bld) [Volume fraction] 32.5 % Critically low 36.0-48.0 [facility] Comment on above: Performed By: #### C BC ####[facility] Gqxrrunlxz[address] [place], [place] [address]Dr. Airam Tripathi Hemoglobin (Bld) [Mass/Vol] 10.1 g/dL Critically low 12.0-16.0 [facility] Comment on above: Performed By: #### C BC ####[facility] Mkkuyzyksn34[address] [place], [place] [address]Dr. Airam Tripathi IG # 0.03 10e3/ul Normal 0.00-0.03 [facility] Comment on above: Performed By: #### C BC ####[facility] Mcmwklgism[address] [place], [place] [address]Dr. Airam Tripathi IG % 0.4 % Normal 0.0-0.5 [facility] Comment on above: Performed By: #### C BC ####[facility] Skaetzpaui0149 [place] [phone]. Airam Tripathi LYMPH # 1.4 103/ul Normal 1.2-3.8 [facility] Comment on above: Performed By: #### C BC ####[facility] Esmnrhktvo9490 [place] [phone]. Airam Deuce Lymphocytes/100 WBC (Bld) 19.4 % Critically low 20.5-60.0 [facility] Comment on above: Performed By: #### C BC ####[facility] Iiosexcguz0103 [place] [address]Dr. Selenaneil Tripathi MANUAL DIFF REQ NO Normal [facility] Comment on above: Performed By: #### C BC ####[facility] Acgqsqwsgm5821 [place] [address]Dr. Airam Deuce MCH (RBC) [Entitic mass] 30.6 pg Normal 26.7-34.0 [facility] Comment on above: Performed By: #### C BC ####[facility] Qyugiuwelv9566 [place] [phone]. Airam Tripathi MCHC (RBC) [Mass/Vol] 31.1 g/dL Normal 29.9-35.2 [facility] Comment on above: Performed By: #### C BC ####[facility] Csiedwjbgy4016 [place] [address]Dr. Airam Deuce MCV (RBC) [Entitic vol] 98.5 fL Normal 81.0-99.0 [facility] Comment on above: Performed By: #### C BC ####[facility] Rufjfebpxs2572 [place] [phone]. Airam Tripathi MONO # 0.5 103/ul Normal 0.3-0.8 [facility] Comment on above: Performed By: #### C BC ####[facility] Hcfjqowzwk1005 [place] [phone]. Airam Decue Monocytes/100 WBC (Bld) 6.7 % Normal 1.7-12.0 [facility] Comment on above: Performed By: #### C BC ####[facility] Tyalamtlem4893 [place] [phone]. Airam Tripathi NEUT # 5.2 103/ul Normal 1.4-6.5 [facility] Comment on above: Performed By: #### C BC ####[facility] Muitvaivax3171 [place] [phone]. Airam Tripathi Neutrophils/100 WBC (Bld) 70.5 % Normal 43.0-75.0 [facility] Comment on above: Performed By: #### C BC ####[facility] Kpgddyrvib6633 [place] [address]Dr. Airam Tripathi Platelet mean volume (Bld) [Entitic vol] 9.8 fL Normal 9.5-13.5 [facility] Comment on above: Performed By: #### C BC ####[facility] Cbmkdnyozo9941 [place] [address]Dr. Airam Tripathi PLT 277 103/ul Normal 150-450 [facility] Comment on above: Performed By: #### C BC ####[facility] Dqoancwmvg[address] [place], [place] [address]Dr. Airam Tripathi RBC 3.30 106/ul Critically low 4.20-5.40 [facility] Comment on above: Performed By: #### C BC ####[facility] Tjbfgiddwd3992 [place] [address]Dr. Airam Tripathi WBC 7.4 103/ul Normal 4.0-11.0 [facility] Comment on above: Performed By: #### C BC ####[facility] Ezxtsaimur[address] [place], [place] [address]Dr. Airam Tripathi PROF 14(COMP METB)on 022 Albumin [Mass/Vol] 3.6 g/dL Normal 3.4-5.0 [facility] Comment on above: Performed By: #### C MP ####[facility] Pxsqblxcmz0424[address] [place], [place] [address]Dr. Airam Deuce Albumin/Globulin [Mass ratio] 1.1 {ratio} Normal [facility] Comment on above: Performed By: #### C MP ####[facility] Wwkabfnies1900 [place] [phone]. Airam Tripathi ALP [Catalytic activity/Vol] 112 U/L Normal 46-116 [facility] Comment on above: Performed By: #### C MP ####[facility] Mnssioiofl0876 [place] [phone]. Airam Tripathi ALT [Catalytic activity/Vol] 26 U/L Normal 14-59 [facility] Comment on above: Performed By: #### C MP ####[facility] Dnojujtfee6960 [place] [phone]. Airam Tripathi Anion gap [Moles/Vol] 12.0 mmol/L Normal [facility] Comment on above: Performed By: #### C MP ####[facility] Diwnbwswxj17[address] [place], [place] [address]Dr. Airam Tripathi AST [Catalytic activity/Vol] 25 U/L Normal 15-37 [facility] Comment on above: Performed By: #### C MP ####[facility] Jodfccemwu[address] [place], [place] [address]Dr. Airam Tripathi Bilirubin [Mass/Vol] 0.4 mg/dL Normal 0.2-1.0 [facility] Comment on above: Performed By: #### C MP ####[facility] Ffwsozzywt984[address] [place], [place] [address]Dr. Airam Tripathi Calcium [Mass/Vol] 8.9 mg/dL Normal 8.5-10.1 [facility] Comment on above: Performed By: #### C MP ####[facility] Lqitncushv26[address] [place], [place] [address]Dr. Airam Tripathi Chloride [Moles/Vol] 101 mmol/L Normal 98-107 [facility] Comment on above: Performed By: #### C MP ####[facility] Bczkeapgnq700[address] [place], [place] [address]Dr. Airam Tripathi CO2 [Moles/Vol] 24.0 mmol/L Normal 21.0-32.0 [facility] Comment on above: Performed By: #### C MP ####[facility] Tgvgxaghyq1858 [place] [phone]. Airam Tripathi Creatinine [Mass/Vol] 1.51 mg/dL Critically high 0.55-1.02 [facility] Comment on above: Performed By: #### C MP ####[facility] Vphfeapswr5975 [place] [phone]. Airam Tripathi EGFR-AF [place] 43 mL/min/1.73m2 Critically low >=60 [facility] Comment on above: Performed By: #### C MP ####[facility] Fzogpyknug8017 [place] [phone]. Airam rTipathi EGFR-NON AF [place] 35 mL/min/1.73m2 Critically low >=60 [facility] Comment on above: Performed By: #### C MP ####[facility] Ksnakfosdo8608 [place] [address]Dr. Ariam Tripathi Globulin (S) [Mass/Vol] 3.2 g/dL Normal [facility] Comment on above: Performed By: #### C MP ####[facility] Nzabtvhjyd7393 [place] [address]Dr. Airam Tripathi Glucose [Mass/Vol] 82 mg/dL Normal 74-106 [facility] Comment on above: Performed By: #### C MP ####[facility] Ndcxwyxgwj1463 [place] [address]Dr. Airam Tripathi Potassium [Moles/Vol] 4.0 mmol/L Normal 3.5-5.1 [facility] Comment on above: Performed By: #### C MP ####[facility] Chxepezeyo0688 [place] [address]Dr. Airam Tripathi Protein [Mass/Vol] 6.8 g/dL Normal 6.4-8.2 [facility] Comment on above: Performed By: #### C MP ####[facility] Zldqcrrtxo6016 [place] [address]Dr. Airam Tripathi Sodium [Moles/Vol] 133 mmol/L Critically low 136-145 [facility] Comment on above: Performed By: #### C MP ####[facility] Xxaeetbgjz612[address] [place], [place] [address]Dr. Airam Tripathi Urea nitrogen [Mass/Vol] 37.0 mg/dL Critically high 7.0-18.0 [facility] Comment on above: Performed By: #### C MP ####[facility] Olcklusrck[address] [place], [place] [address]Dr. Airam Tripathi Urea nitrogen/Creatinine [Mass ratio] 24.5 mg/mg Normal [facility] Comment on above: Performed By: #### C MP ####[facility] Zyzhggykdf213[address] [place], [place] [address]Dr. Airam Tripathi OSMOLALITYon 03-07-2022 Osmolality [Osmolality] 284 mosm/kg Normal 275-295 [facility] Comment on above: Performed By: #### O SMO ####[facility] Rhueyodsqk[address] [place], [place] [address]Dr. Airam Tripathi CBC AUTO DIFFon 03-04-2022 BASO # 0.0 103/ul Normal 0.0-0.1 [facility] Comment on above: Performed By: #### C BC ####[facility] Zmvptiflkp368[address] [place], [place] [address]Dr. Airam Tripathi Basophils/100 WBC (Bld) 0.3 % Normal 0.2-2.0 [facility] Comment on above: Performed By: #### C BC ####[facility] Kevztpymfc24[address] [place], [place] [address]Dr. Airam Tripathi EO # 0.1 103/ul Normal 0.0-0.7 [facility] Comment on above: Performed By: #### C BC ####[facility] Ykmgsbxbct709[address] [place], [place] [address]Dr. Airam Tripathi Eosinophils/100 WBC (Bld) 2.0 % Normal 0.9-7.0 [facility] Comment on above: Performed By: #### C BC ####[facility] Umryhzfsyj275[address] [place], [place] [address]Dr. Airam Tripathi Erythrocyte distribution width (RBC) [Ratio] 14.5 % Normal 11.0-15.0 [facility] Comment on above: Performed By: #### C BC ####[facility] Udjndlogyt3405 [place] [address]Dr. Airam Tripathi Hematocrit (Bld) [Volume fraction] 35.4 % Critically low 36.0-48.0 [facility] Comment on above: Performed By: #### C BC ####[facility] Vseujwtlzf19[address] [place], [place] [address]Dr. Airam Tripathi Hemoglobin (Bld) [Mass/Vol] 11.0 g/dL Critically low 12.0-16.0 [facility] Comment on above: Performed By: #### C BC ####[facility] Jwhekkfdib434[address] [place], [place] [address]Dr. Airam Tripathi IG # 0.03 10e3/ul Normal 0.00-0.03 [facility] Comment on above: Performed By: #### C BC ####[facility] Iwwzsidogs237[address] [place], [place] [address]Dr. Airam Tripathi IG % 0.4 % Normal 0.0-0.5 [facility] Comment on above: Performed By: #### C BC ####[facility] Auefvumzqu3814[address] [place], [place] [address]Dr. Airam Tripathi LYMPH # 1.7 103/ul Normal 1.2-3.8 [facility] Comment on above: Performed By: #### C BC ####[facility] Mqgmmgbktq508[address] [place], [place] [address]Dr. Airam Tripathi Lymphocytes/100 WBC (Bld) 23.8 % Normal 20.5-60.0 [facility] Comment on above: Performed By: #### C BC ####[facility] Ssfppbdtdv276[address] [place], [place] [address]Dr. Airam Tripathi MANUAL DIFF REQ NO Normal [facility] Comment on above: Performed By: #### C BC ####[facility] Tktrhbjpxe413[address] [place], [place] [address]Dr. Airam Tripathi MCH (RBC) [Entitic mass] 30.0 pg Normal 26.7-34.0 [facility] Comment on above: Performed By: #### C BC ####[facility] Hlhsdvsoua2807 [place] [phone]. Airam Deuce MCHC (RBC) [Mass/Vol] 31.1 g/dL Normal 29.9-35.2 [facility] Comment on above: Performed By: #### C BC ####[facility] Rxsxvvpawq3021 [place] [phone]. Airam Tripathi MCV (RBC) [Entitic vol] 96.5 fL Normal 81.0-99.0 [facility] Comment on above: Performed By: #### C BC ####[facility] Zltthcyxbv637[address] [place], [place] [address]Dr. Airam Tripathi MONO # 0.5 103/ul Normal 0.3-0.8 [facility] Comment on above: Performed By: #### C BC ####[facility] Sozyhqeyuy712[address] [place], [place] [address]Dr. Airam Tripathi Monocytes/100 WBC (Bld) 6.6 % Normal 1.7-12.0 [facility] Comment on above: Performed By: #### C BC ####[facility] Qbceximrjf40[address] [place], [place] [address]Dr. Airam Tripathi NEUT # 4.7 103/ul Normal 1.4-6.5 [facility] Comment on above: Performed By: #### C BC ####[facility] Atnpvgxtqf823[address] [place], [place] [address]Dr. Airam Tripathi Neutrophils/100 WBC (Bld) 66.9 % Normal 43.0-75.0 [facility] Comment on above: Performed By: #### C BC ####[facility] Lbuvgtgetz716[address] [place], [place] [address]Dr. Airam Tripathi Platelet mean volume (Bld) [Entitic vol] 10.2 fL Normal 9.5-13.5 [facility] Comment on above: Performed By: #### C BC ####[facility] Ruunygojzi[address] [place], [place] [id number]. Airam Tripathi PLT 270 103/ul Normal 150-450 [facility] Comment on above: Performed By: #### C BC ####[facility] Fqqizcrgtq8513 [place] [phone]. Airam Tripathi RBC 3.67 106/ul Critically low 4.20-5.40 [facility] Comment on above: Performed By: #### C BC ####[facility] Rzibibmdcs8614 [place] [phone]. Airam Tripathi WBC 7.0 103/ul Normal 4.0-11.0 [facility] Comment on above: Performed By: #### C BC ####[facility] Dvfrqcvbls7199 [place] [address]Dr. Airam Tripathi PROF 14(COMP METB)on 022 Albumin [Mass/Vol] 3.3 g/dL Critically low 3.4-5.0 [facility] Comment on above: Performed By: #### C MP ####[facility] Gxcuuyjwwr7350 [place] [address]Dr. Airam Tripathi Albumin/Globulin [Mass ratio] 1.0 {ratio} Normal [facility] Comment on above: Performed By: #### C MP ####[facility] Wdlnkcclij2831 [place] [address]Dr. Airam Tripathi ALP [Catalytic activity/Vol] 107 U/L Normal 46-116 [facility] Comment on above: Performed By: #### C MP ####[facility] Vofpsyfrcg5504 [place] [address]Dr. Airam Tripathi ALT [Catalytic activity/Vol] 23 U/L Normal 14-59 [facility] Comment on above: Performed By: #### C MP ####[facility] Gngelwonle9463 [place] [address]Dr. Airam Tripathi Anion gap [Moles/Vol] 13.0 mmol/L Normal [facility] Comment on above: Performed By: #### C MP ####[facility] Akciqdivpn5631 [place] [address]Dr. Airam Tripathi AST [Catalytic activity/Vol] 30 U/L Normal 15-37 [facility] Comment on above: Performed By: #### C MP ####[facility] Vzqiqlbusm6864 [place] [phone]. Airam Tripathi Bilirubin [Mass/Vol] 0.2 mg/dL Normal 0.2-1.0 [facility] Comment on above: Performed By: #### C MP ####[facility] Pxnalvqcov7292 [place] [phone]. Airam Tripathi Calcium [Mass/Vol] 8.8 mg/dL Normal 8.5-10.1 [facility] Comment on above: Performed By: #### C MP ####[facility] Rtrvatmuhg1916 [place] [phone]. Airam Tripathi Chloride [Moles/Vol] 103 mmol/L Normal 98-107 [facility] Comment on above: Performed By: #### C MP ####[facility] Snmurokewh9907 [place] [address]Dr. Airam Tripathi CO2 [Moles/Vol] 24.9 mmol/L Normal 21.0-32.0 [facility] Comment on above: Performed By: #### C MP ####[facility] Uzmtjpedbr[address] [place], [place] [id number]. Airam Tripathi Creatinine [Mass/Vol] 1.06 mg/dL Critically high 0.55-1.02 [facility] Comment on above: Performed By: #### C MP ####[facility] Ahvsociyec6815 [place] [phone]. Airam Deuce EGFR-AF [place] >60 Normal >=60 [facility] Comment on above: Performed By: #### C MP ####[facility] Mlcsexwtda3475 [place] [phone]. Airam Deuce EGFR-NON AF [place] 53 mL/min/1.73m2 Critically low >=60 [facility] Comment on above: Performed By: #### C MP ####[facility] Epcrqbphcz[address] [place], [place] [address]Dr. Airam Deuce Globulin (S) [Mass/Vol] 3.2 g/dL Normal [facility] Comment on above: Performed By: #### C MP ####[facility] Qssfrlpwes2964 [place] [address]Dr. Airam Tripathi Glucose [Mass/Vol] 91 mg/dL Normal 74-106 [facility] Comment on above: Performed By: #### C MP ####[facility] Dxjhewemwk0058 [place] [address]Dr. Airam Tripathi Potassium [Moles/Vol] 3.9 mmol/L Normal 3.5-5.1 [facility] Comment on above: Performed By: #### C MP ####[facility] Whfnzpiumz[address] [place], [place] [address]Dr. Airam Tripathi Protein [Mass/Vol] 6.5 g/dL Normal 6.4-8.2 [facility] Comment on above: Performed By: #### C MP ####[facility] Oqohyusjjj50[address] [place], [place] [address]Dr. Airam Tripathi Sodium [Moles/Vol] 137 mmol/L Normal 136-145 [facility] Comment on above: Performed By: #### C MP ####[facility] Ckipapvoli[address] [place], [place] [address]Dr. Airam Tripathi Urea nitrogen [Mass/Vol] 27.0 mg/dL Critically high 7.0-18.0 [facility] Comment on above: Performed By: #### C MP ####[facility] Sycysjtwvy[address] [place], [place] [address]Dr. Airam Tripathi Urea nitrogen/Creatinine [Mass ratio] 25.5 mg/mg Normal [facility] Comment on above: Performed By: #### C MP ####[facility] Yjsyaiorjr[address] [place], [place] [address]Dr. Airam Tripathi OSMOLALITYon 03-03-2022 Osmolality [Osmolality] 383 mosm/kg Invalid Interpretation Code [id number] [facility] Comment on above: Result Comment: Ve rified by repeat analysis Performed By: #### O SMO ####[facility] Lxycmroyfi[address] [place], [place] [address]Dr. Airam Tripathi CBC AUTO DIFFon 02-22-2022 BASO # 0.0 103/ul Normal 0.0-0.1 [facility] Comment on above: Performed By: #### C BC ####[facility] Dlkvoarozx2978 [place] [id number]. Airam Tripathi Basophils/100 WBC (Bld) 0.4 % Normal 0.2-2.0 [facility] Comment on above: Performed By: #### C BC ####[facility] Mczqltuzik[address] [place], [place] [id number]. Airam Tripathi EO # 0.2 103/ul Normal 0.0-0.7 [facility] Comment on above: Performed By: #### C BC ####[facility] Qqvhgrauyf436[address] [place], [place] [address]Dr. Airam Tripathi Eosinophils/100 WBC (Bld) 3.9 % Normal 0.9-7.0 [facility] Comment on above: Performed By: #### C BC ####[facility] Wtmgaquvga9[address] [place], [place] [address]Dr. Airam Tripathi Erythrocyte distribution width (RBC) [Ratio] 13.9 % Normal 11.0-15.0 [facility] Comment on above: Performed By: #### C BC ####[facility] Obsrdlyyhz274[address] [place], [place] [address]Dr. Airam Tripathi Hematocrit (Bld) [Volume fraction] 32.7 % Critically low 36.0-48.0 [facility] Comment on above: Performed By: #### C BC ####[facility] Woqljbzhbn[address] [place], [place] [address]Dr. Airam Tripathi Hemoglobin (Bld) [Mass/Vol] 10.7 g/dL Critically low 12.0-16.0 [facility] Comment on above: Performed By: #### C BC ####[facility] Xdqpkkuzry[address] [place], [place] [address]Dr. Airam Tripathi IG # 0.02 10e3/ul Normal 0.00-0.03 [facility] Comment on above: Performed By: #### C BC ####[facility] Xgqnuwmpqq850[address] [place], [place] [address]Dr. Airam Tripathi IG % 0.4 % Normal 0.0-0.5 [facility] Comment on above: Performed By: #### C BC ####[facility] Iplsycigoh5608 [place] [phone]. Airam Tripathi LYMPH # 1.2 103/ul Normal 1.2-3.8 [facility] Comment on above: Performed By: #### C BC ####[facility] Iayuntfpka4297 [place] [phone]. Airam Tripathi Lymphocytes/100 WBC (Bld) 25.0 % Normal 20.5-60.0 [facility] Comment on above: Performed By: #### C BC ####[facility] Ikirslrpyb60[address] [place], [place] [address]Dr. Airam Tripathi MANUAL DIFF REQ NO Normal [facility] Comment on above: Performed By: #### C BC ####[facility] Gibxwfmpnu[address] [place], [place] [address]Dr. Airam Tripathi MCH (RBC) [Entitic mass] 30.7 pg Normal 26.7-34.0 [facility] Comment on above: Performed By: #### C BC ####[facility] Zjljlyynts257[address] [place], [place] [address]Dr. Airam Tripathi MCHC (RBC) [Mass/Vol] 32.7 g/dL Normal 29.9-35.2 [facility] Comment on above: Performed By: #### C BC ####[facility] Jhqceeyimo[address] [place], [place] [address]Dr. Airam Tripathi MCV (RBC) [Entitic vol] 93.7 fL Normal 81.0-99.0 [facility] Comment on above: Performed By: #### C BC ####[facility] Wsshbislca646[address] [place], [place] [address]Dr. Airam Tripathi MONO # 0.4 103/ul Normal 0.3-0.8 [facility] Comment on above: Performed By: #### C BC ####[facility] Hqbmhfqqia[address] [place], [place] [id number]. Airam Tripathi Monocytes/100 WBC (Bld) 7.5 % Normal 1.7-12.0 [facility] Comment on above: Performed By: #### C BC ####[facility] Teboikcuzl6922 [place] [phone]. Airam Tripathi NEUT # 3.1 103/ul Normal 1.4-6.5 [facility] Comment on above: Performed By: #### C BC ####[facility] Ygccmlzove8893 [place] [phone]. Airam Tripathi Neutrophils/100 WBC (Bld) 62.8 % Normal 43.0-75.0 [facility] Comment on above: Performed By: #### C BC ####[facility] Utnhekuxwq0648 [place] [address]Dr. Airam Tripathi Platelet mean volume (Bld) [Entitic vol] 9.5 fL Normal 9.5-13.5 [facility] Comment on above: Performed By: #### C BC ####[facility] Fhwbiwnhfv[address] [place], [place] [address]Dr. Airam Tripathi PLT 250 103/ul Normal 150-450 [facility] Comment on above: Performed By: #### C BC ####[facility] Rbpoufdwto5782 [place] [address]Dr. Airam Tripathi RBC 3.49 106/ul Critically low 4.20-5.40 [facility] Comment on above: Performed By: #### C BC ####[facility] Gyzadoiviz4641 [place] [address]Dr. Airam Tripathi WBC 4.9 103/ul Normal 4.0-11.0 [facility] Comment on above: Performed By: #### C BC ####[facility] Yfckuhiiqz8385 [place] [address]Dr. Airam Tripathi PROF 14(COMP METB)on 022 Albumin [Mass/Vol] 3.3 g/dL Critically low 3.4-5.0 [facility] Comment on above: Performed By: #### C MP ####[facility] Uuqeflhlix6[address] [place] [address]Dr. Airam Tripathi Albumin/Globulin [Mass ratio] 1.0 {ratio} Normal [facility] Comment on above: Performed By: #### C MP ####[facility] Eoxgwkvfys3133 [place] [address]Dr. Airam Tripathi ALP [Catalytic activity/Vol] 127 U/L Critically high 46-116 [facility] Comment on above: Performed By: #### C MP ####[facility] Seudwczjse5550 [place] [address]Dr. Airam Tripathi ALT [Catalytic activity/Vol] 22 U/L Normal 14-59 [facility] Comment on above: Performed By: #### C MP ####[facility] Hgscwgnjbq764[address] [place], [place] [address]Dr. Airam Tripathi Anion gap [Moles/Vol] 11.9 mmol/L Normal [facility] Comment on above: Performed By: #### C MP ####[facility] Lyhbxgkucc689[address] [place], [place] [address]Dr. Airam Tripathi AST [Catalytic activity/Vol] 21 U/L Normal 15-37 [facility] Comment on above: Performed By: #### C MP ####[facility] Jxteghwhfh840[address] [place], [place] [address]Dr. Airam Tripathi Bilirubin [Mass/Vol] 0.3 mg/dL Normal 0.2-1.0 [facility] Comment on above: Performed By: #### C MP ####[facility] Aomzgssaip[address] [place], [place] [address]Dr. Airam Tripathi Calcium [Mass/Vol] 8.6 mg/dL Normal 8.5-10.1 [facility] Comment on above: Performed By: #### C MP ####[facility] Pceqovmcjd394[address] [place], [place] [address]Dr. Airam Tripathi Chloride [Moles/Vol] 105 mmol/L Normal 98-107 [facility] Comment on above: Performed By: #### C MP ####[facility] Vxkelscfeq843[address] [place], [place] [address]Dr. Airam Tripathi CO2 [Moles/Vol] 23.6 mmol/L Normal 21.0-32.0 [facility] Comment on above: Performed By: #### C MP ####[facility] Wpdfbztpgx7745 [place] [phone]. Airam Tripathi Creatinine [Mass/Vol] 1.29 mg/dL Critically high 0.55-1.02 [facility] Comment on above: Performed By: #### C MP ####[facility] Qjemhdanrs9874 [place] [phone]. Airam Tripathi EGFR-AF [place] 51 mL/min/1.73m2 Critically low >=60 [facility] Comment on above: Performed By: #### C MP ####[facility] Hrbsubojwv7898 [place] [phone]. Airam Tripathi EGFR-NON AF [place] 42 mL/min/1.73m2 Critically low >=60 [facility] Comment on above: Performed By: #### C MP ####[facility] Ceegoixjfv267[address] [place], [place] [address]Dr. Airam Tripathi Globulin (S) [Mass/Vol] 3.2 g/dL Normal [facility] Comment on above: Performed By: #### C MP ####[facility] Hyoottfosu9046 [place] [address]Dr. Airam Tripathi Glucose [Mass/Vol] 94 mg/dL Normal 74-106 [facility] Comment on above: Performed By: #### C MP ####[facility] Mmqghbtpck[address] [place], [place] [address]Dr. Airam Tripathi Potassium [Moles/Vol] 3.5 mmol/L Normal 3.5-5.1 [facility] Comment on above: Performed By: #### C MP ####[facility] Fnrvzmtqha35[address] [place], [place] [address]Dr. Airam Tripathi Protein [Mass/Vol] 6.5 g/dL Normal 6.4-8.2 [facility] Comment on above: Performed By: #### C MP ####[facility] Hliuhuptte84[address] [place], [place] [address]Dr. Airam Tripathi Sodium [Moles/Vol] 137 mmol/L Normal 136-145 [facility] Comment on above: Performed By: #### C MP ####[facility] Gykmzwsttw3085 [place] [phone]. Airam Tripathi Urea nitrogen [Mass/Vol] 37.0 mg/dL Critically high 7.0-18.0 [facility] Comment on above: Performed By: #### C MP ####[facility] Vhglyirids2201 [place] [phone]. Airam Tripathi Urea nitrogen/Creatinine [Mass ratio] 28.7 mg/mg Normal [facility] Comment on above: Performed By: #### C MP ####[facility] Cioclnxarl474[address] [place], [place] [address]Dr. Airam Tripathi OSMOLALITYon 02-20-2022 Osmolality [Osmolality] 283 mosm/kg Normal 275-295 [facility] Comment on above: Performed By: #### O SMO ####[facility] Vcyugmnmle11[address] [place], [place] [address]Dr. Airam Tripathi CBC AUTO DIFFon 02-17-2022 BASO # 0.0 103/ul Normal 0.0-0.1 [facility] Comment on above: Performed By: #### C BC ####[facility] Kzgcbyrlea[address] [place], [place] [address]Dr. Airam Tripathi Basophils/100 WBC (Bld) 0.3 % Normal 0.2-2.0 [facility] Comment on above: Performed By: #### C BC ####[facility] Rfvxazcvew017[address] [place], [place] [address]Dr. Airam Tripathi EO # 0.1 103/ul Normal 0.0-0.7 [facility] Comment on above: Performed By: #### C BC ####[facility] Gbrezficvd256[address] [place], [place] [address]Dr. Airam Tripathi Eosinophils/100 WBC (Bld) 1.6 % Normal 0.9-7.0 [facility] Comment on above: Performed By: #### C BC ####[facility] Jxcdhlmcsq[address]13[address] [place], [place] [address]Dr. Airam Tripathi Erythrocyte distribution width (RBC) [Ratio] 13.4 % Normal 11.0-15.0 [facility] Comment on above: Performed By: #### C BC ####[facility] Mndfmivajh3281 [place] [address]Dr. Airam Tripathi Hematocrit (Bld) [Volume fraction] 31.4 % Critically low 36.0-48.0 [facility] Comment on above: Performed By: #### C BC ####[facility] Rqwwobpcbf4464 [place] [address]Dr. Airam Tripathi Hemoglobin (Bld) [Mass/Vol] 10.0 g/dL Critically low 12.0-16.0 [facility] Comment on above: Performed By: #### C BC ####[facility] Qogqubhqsg6025[address] [place], [place] [address]Dr. Airam Tripathi IG # 0.03 10e3/ul Normal 0.00-0.03 [facility] Comment on above: Performed By: #### C BC ####[facility] Pjamgfxhrq824[address] [place], [place] [address]Dr. Selenaneil Tripathi IG % 0.4 % Normal 0.0-0.5 [facility] Comment on above: Performed By: #### C BC ####[facility] Hsrqojuwec[address] [place], [place] [address]Dr. Airam Deuce LYMPH # 1.6 103/ul Normal 1.2-3.8 [facility] Comment on above: Performed By: #### C BC ####[facility] Vgpuakcjaa018[address] [place], [place] [address]DrKianna Selenaneil Tripathi Lymphocytes/100 WBC (Bld) 24.5 % Normal 20.5-60.0 [facility] Comment on above: Performed By: #### C BC ####[facility] Ideqbrwksk129[address] [place], [place] [address]Dr. Selenaneil Tripathi MANUAL DIFF REQ NO Normal [facility] Comment on above: Performed By: #### C BC ####[facility] Mpmtezhkqq7319[address] [place], [place] [address]DrKianna Airam Deuce MCH (RBC) [Entitic mass] 30.2 pg Normal 26.7-34.0 [facility] Comment on above: Performed By: #### C BC ####[facility] Fqvyemmuqz1188 [place] [phone]. Selenaneil Tripathi MCHC (RBC) [Mass/Vol] 31.8 g/dL Normal 29.9-35.2 [facility] Comment on above: Performed By: #### C BC ####[facility] Vowgebrvxq9071 [place] [phone]. Airam Tripathi MCV (RBC) [Entitic vol] 94.9 fL Normal 81.0-99.0 [facility] Comment on above: Performed By: #### C BC ####[facility] Whuvgvvgpk105[address] [place], [place] [address]Dr. Airam Tripathi MONO # 0.4 103/ul Normal 0.3-0.8 [facility] Comment on above: Performed By: #### C BC ####[facility] Hxwvhjmyrm76[address] [place], [place] [address]Dr. Airam Tripathi Monocytes/100 WBC (Bld) 5.8 % Normal 1.7-12.0 [facility] Comment on above: Performed By: #### C BC ####[facility] Jmhtuycqlj[address] [place], [place] [address]Dr. Airam Tripathi NEUT # 4.5 103/ul Normal 1.4-6.5 [facility] Comment on above: Performed By: #### C BC ####[facility] Dduhtcwayg943[address] [place], [place] [address]Dr. Airam Tripathi Neutrophils/100 WBC (Bld) 67.4 % Normal 43.0-75.0 [facility] Comment on above: Performed By: #### C BC ####[facility] Tnopqdvfdb285[address] [place], [place] [address]Dr. Airam Tripathi Platelet mean volume (Bld) [Entitic vol] 9.6 fL Normal 9.5-13.5 [facility] Comment on above: Performed By: #### C BC ####[facility] Zyhvoloxmx014[address] [place], [place] [address]Dr. Airam Tripathi PLT 251 103/ul Normal 150-450 [facility] Comment on above: Performed By: #### C BC ####[facility] Jcglgppeyp3165 [place] [address]Dr. Selenaneil Deuce RBC 3.31 106/ul Critically low 4.20-5.40 [facility] Comment on above: Performed By: #### C BC ####[facility] Hmfyytshht6628 [place] [phone]. Airam Tripathi WBC 6.7 103/ul Normal 4.0-11.0 [facility] Comment on above: Performed By: #### C BC ####[facility] Zbedavouve9714 [place] [address]Dr. Airam Tripathi PROF 14(COMP METB)on 022 Albumin [Mass/Vol] 3.5 g/dL Normal 3.4-5.0 [facility] Comment on above: Performed By: #### C MP ####[facility] Sntapsdppj932[address] [place], [place] [address]Dr. Airam Tripathi Albumin/Globulin [Mass ratio] 1.2 {ratio} Normal [facility] Comment on above: Performed By: #### C MP ####[facility] Rikgskryuf734[address] [place], [place] [address]Dr. Airam Tripathi ALP [Catalytic activity/Vol] 130 U/L Critically high 46-116 [facility] Comment on above: Performed By: #### C MP ####[facility] Jhbuiovcdf2616[address] [place], [place] [address]Dr. Airam Tripathi ALT [Catalytic activity/Vol] 18 U/L Normal 14-59 [facility] Comment on above: Performed By: #### C MP ####[facility] Lzadfmieul8181 [place] [address]Dr. Airam Tripathi Anion gap [Moles/Vol] 14.0 mmol/L Normal [facility] Comment on above: Performed By: #### C MP ####[facility] Sotgvijjqm6706 [place] [address]Dr. Airam Tripathi AST [Catalytic activity/Vol] 20 U/L Normal 15-37 [facility] Comment on above: Performed By: #### C MP ####[facility] Vudlvznreg7727 [place] [phone]. Airam Tripathi Bilirubin [Mass/Vol] 0.3 mg/dL Normal 0.2-1.0 [facility] Comment on above: Performed By: #### C MP ####[facility] Catdtxxgnx6358 [place] [phone]. Airam Tripathi Calcium [Mass/Vol] 8.5 mg/dL Normal 8.5-10.1 [facility] Comment on above: Performed By: #### C MP ####[facility] Pzhdxoxpcy[address] [place], [place] [id number]. Airam Tripathi Chloride [Moles/Vol] 100 mmol/L Normal 98-107 [facility] Comment on above: Performed By: #### C MP ####[facility] Omeguohuyr[address] [place], [place] [address]Dr. Airam Tripathi CO2 [Moles/Vol] 22.7 mmol/L Normal 21.0-32.0 [facility] Comment on above: Performed By: #### C MP ####[facility] Ehsangxrzs910[address] [place], [place] [address]Dr. Airam Tripathi Creatinine [Mass/Vol] 1.28 mg/dL Critically high 0.55-1.02 [facility] Comment on above: Performed By: #### C MP ####[facility] Kxqbstkcdw[address] [place], [place] [address]Dr. Airam Tripathi EGFR-AF [place] 52 mL/min/1.73m2 Critically low >=60 [facility] Comment on above: Performed By: #### C MP ####[facility] Ywshipksxp74[address] [place], [place] [id number]. Airam Tripathi EGFR-NON AF [place] 43 mL/min/1.73m2 Critically low >=60 [facility] Comment on above: Performed By: #### C MP ####[facility] Zezntgjqxz[address] [place], [place] [id number]. Airam Tripathi Globulin (S) [Mass/Vol] 2.9 g/dL Normal [facility] Comment on above: Performed By: #### C MP ####[facility] Szvaexmzyi5793 [place] [phone]. Airam Tripathi Glucose [Mass/Vol] 93 mg/dL Normal 74-106 [facility] Comment on above: Performed By: #### C MP ####[facility] Wxqtpiuzlx3890 [place] [phone]. Airam Tripathi Potassium [Moles/Vol] 3.7 mmol/L Normal 3.5-5.1 [facility] Comment on above: Performed By: #### C MP ####[facility] Sdrscgcrnj0228 [place] [phone]. Airam Tripathi Protein [Mass/Vol] 6.4 g/dL Normal 6.4-8.2 [facility] Comment on above: Performed By: #### C MP ####[facility] Wdcsvqiool6845 [place] [address]Dr. Airam Tripathi Sodium [Moles/Vol] 133 mmol/L Critically low 136-145 [facility] Comment on above: Performed By: #### C MP ####[facility] Ruxrwdqbrr2454 [place] [address]Dr. Airam Tripathi Urea nitrogen [Mass/Vol] 44.0 mg/dL Critically high 7.0-18.0 [facility] Comment on above: Performed By: #### C MP ####[facility] Yaiodvrfvg230[address] [place], [place] [address]Dr. Airam Tripathi Urea nitrogen/Creatinine [Mass ratio] 34.4 mg/mg Normal [facility] Comment on above: Performed By: #### C MP ####[facility] Gxhoanqrxn6314 [place] [address]Dr. Airam Tripathi OSMOLALITYon 02-10-2022 Osmolality [Osmolality] 288 mosm/kg Normal 275-295 [facility] Comment on above: Performed By: #### O SMO ####[facility] Zmgitjibvw187[address] [place], [place] [address]Dr. Airam Tripathi CBC AUTO DIFFon 02-08-2022 BASO # 0.0 103/ul Normal 0.0-0.1 [facility] Comment on above: Performed By: #### C BC ####[facility] Niaryawzqj9922 [place] [phone]. Airam Tripathi Basophils/100 WBC (Bld) 0.3 % Normal 0.2-2.0 [facility] Comment on above: Performed By: #### C BC ####[facility] Vvvpehffqu[address] [place], [place] [address]Dr. Airam Tripathi EO # 0.2 103/ul Normal 0.0-0.7 [facility] Comment on above: Performed By: #### C BC ####[facility] Qkvcddmsbd3501[address] [place], [place] [address]Dr. Airam Tripathi Eosinophils/100 WBC (Bld) 2.1 % Normal 0.9-7.0 [facility] Comment on above: Performed By: #### C BC ####[facility] Stimwfciyn[address] [place], [place] [address]Dr. Airam Tripathi Erythrocyte distribution width (RBC) [Ratio] 13.4 % Normal 11.0-15.0 [facility] Comment on above: Performed By: #### C BC ####[facility] Bynqiurtqq[address] [place], [place] [address]Dr. Airam Tripathi Hematocrit (Bld) [Volume fraction] 35.1 % Critically low 36.0-48.0 [facility] Comment on above: Performed By: #### C BC ####[facility] Rlposgjqpz19[address] [place], [place] [address]Dr. Airam Tripathi Hemoglobin (Bld) [Mass/Vol] 10.9 g/dL Critically low 12.0-16.0 [facility] Comment on above: Performed By: #### C BC ####[facility] Gylxumnzyp[address] [place], [place] [address]Dr. Airam Tripathi IG # 0.03 10e3/ul Normal 0.00-0.03 [facility] Comment on above: Performed By: #### C BC ####[facility] Nyfhfbthhr356[address] [place], [place] [address]Dr. Airam Tripathi IG % 0.3 % Normal 0.0-0.5 [facility] Comment on above: Performed By: #### C BC ####[facility] Tujlcjgdgt4504 [place] [phone]. Airam Tripathi LYMPH # 1.3 103/ul Normal 1.2-3.8 [facility] Comment on above: Performed By: #### C BC ####[facility] Jicjfdwbot1353 [place] [phone]. iAram Tripathi Lymphocytes/100 WBC (Bld) 13.1 % Critically low 20.5-60.0 [facility] Comment on above: Performed By: #### C BC ####[facility] Sqzaxarthw6551 [place] [address]Dr. Airam Tripathi MANUAL DIFF REQ NO Normal [facility] Comment on above: Performed By: #### C BC ####[facility] Lxgezndzsz0611 [place] [address]Dr. Airam Tripathi MCH (RBC) [Entitic mass] 30.4 pg Normal 26.7-34.0 [facility] Comment on above: Performed By: #### C BC ####[facility] Dsutctcimj3240 [place] [phone]. Airam Tripathi MCHC (RBC) [Mass/Vol] 31.1 g/dL Normal 29.9-35.2 [facility] Comment on above: Performed By: #### C BC ####[facility] Txfzraxnmz5073 [place] [phone]. Airam Tripathi MCV (RBC) [Entitic vol] 98.0 fL Normal 81.0-99.0 [facility] Comment on above: Performed By: #### C BC ####[facility] Ftclawoybi2505 [place] [phone]. Airam Tripathi MONO # 0.5 103/ul Normal 0.3-0.8 [facility] Comment on above: Performed By: #### C BC ####[facility] Uugqakutzm9007 [place] [phone]. Airam Tripathi Monocytes/100 WBC (Bld) 4.7 % Normal 1.7-12.0 [facility] Comment on above: Performed By: #### C BC ####[facility] Yxomwzctyg0915 [place] [phone]. Airam Tripathi NEUT # 7.7 103/ul Critically high 1.4-6.5 [facility] Comment on above: Performed By: #### C BC ####[facility] Kcguywshdc4897 [place] [phone]. Airam Deuce Neutrophils/100 WBC (Bld) 79.5 % Critically high 43.0-75.0 [facility] Comment on above: Performed By: #### C BC ####[facility] Rnrsoxxxee2089 [place] [phone]. Selenaneil Deuce Platelet mean volume (Bld) [Entitic vol] 9.6 fL Normal 9.5-13.5 [facility] Comment on above: Performed By: #### C BC ####[facility] Lzxnpsadck3192 [place] [address]Dr. Airam Tripathi PLT 268 103/ul Normal 150-450 [facility] Comment on above: Performed By: #### C BC ####[facility] Sbykgzyucm4915 [place] [phone]. Airam Deuce RBC 3.58 106/ul Critically low 4.20-5.40 [facility] Comment on above: Performed By: #### C BC ####[facility] Sgrlzrceis2218 [place] [phone]. Selenaneil Deuce WBC 9.7 103/ul Normal 4.0-11.0 [facility] Comment on above: Performed By: #### C BC ####[facility] Skyjabwmvv0621 [place] [phone] Tripathi PROF 14(COMP METB)on 022 Albumin [Mass/Vol] 3.6 g/dL Normal 3.4-5.0 [facility] Comment on above: Performed By: #### C MP ####[facility] Ukttwtjnhh3155 [place] [phone] Tripathi Albumin/Globulin [Mass ratio] 1.1 {ratio} Normal [facility] Comment on above: Performed By: #### C MP ####[facility] Jdqkeeofug3823 [place] [address]Dr. Airam Tripathi ALP [Catalytic activity/Vol] 131 U/L Critically high 46-116 [facility] Comment on above: Performed By: #### C MP ####[facility] Hoggtbsqvl6028 [place] [address]Dr. Airam Tripathi ALT [Catalytic activity/Vol] 22 U/L Normal 14-59 [facility] Comment on above: Performed By: #### C MP ####[facility] Oxjxyozosa2873 [place] [address]Dr. Airam Tripathi Anion gap [Moles/Vol] 13.3 mmol/L Normal [facility] Comment on above: Performed By: #### C MP ####[facility] Echejwkzzt[address] [place], [place] [address]Dr. Airam Tripathi AST [Catalytic activity/Vol] 23 U/L Normal 15-37 [facility] Comment on above: Performed By: #### C MP ####[facility] Jnomhystmn[address] [place], [place] [address]Dr. Airam Tripathi Bilirubin [Mass/Vol] 0.3 mg/dL Normal 0.2-1.0 [facility] Comment on above: Performed By: #### C MP ####[facility] Nppkxwpcgs[address] [place], [place] [address]Dr. Airam Tripathi Calcium [Mass/Vol] 8.7 mg/dL Normal 8.5-10.1 [facility] Comment on above: Performed By: #### C MP ####[facility] Vbkxcefcqf[address] [place], [place] [address]Dr. Airam Deuce Chloride [Moles/Vol] 104 mmol/L Normal 98-107 [facility] Comment on above: Performed By: #### C MP ####[facility] Jjfwcjfewe[address] [place] [address]Dr. Airam Deuce CO2 [Moles/Vol] 22.0 mmol/L Normal 21.0-32.0 [facility] Comment on above: Performed By: #### C MP ####[facility] Jbubvpxgah04[address] [place] [address]Dr. Airam Tripathi Creatinine [Mass/Vol] 1.20 mg/dL Critically high 0.55-1.02 [facility] Comment on above: Performed By: #### C MP ####[facility] Mjyegclyph[address] [place] [address]Dr. Airam Tripathi EGFR-AF [place] 56 mL/min/1.73m2 Critically low >=60 [facility] Comment on above: Performed By: #### C MP ####[facility] Gtvzquwdbj98[address] [place] [address]Dr. Airam Tripathi EGFR-NON AF [place] 46 mL/min/1.73m2 Critically low >=60 [facility] Comment on above: Performed By: #### C MP ####[facility] Fxsyyfrveg075[address] [place], [place] [address]Dr. Airam Tripathi Globulin (S) [Mass/Vol] 3.2 g/dL Normal [facility] Comment on above: Performed By: #### C MP ####[facility] Brnkuomhae[address] [place] [address]Dr. Airam Tripathi Glucose [Mass/Vol] 98 mg/dL Normal 74-106 [facility] Comment on above: Performed By: #### C MP ####[facility] Nnerwovgrl9[address] [place], [place] [address]Dr. Airam Tripathi Potassium [Moles/Vol] 4.3 mmol/L Normal 3.5-5.1 [facility] Comment on above: Performed By: #### C MP ####[facility] Pizdjbfckh5[address] [place], [place] [address]Dr. Airam Tripathi Protein [Mass/Vol] 6.8 g/dL Normal 6.4-8.2 [facility] Comment on above: Performed By: #### C MP ####[facility] Tprjxppydd6828 [place] [address]Dr. Airam Tripathi Sodium [Moles/Vol] 135 mmol/L Critically low 136-145 [facility] Comment on above: Performed By: #### C MP ####[facility] Uvburyezfl1299 [place] [address]Dr. Airam Tripathi Urea nitrogen [Mass/Vol] 33.0 mg/dL Critically high 7.0-18.0 [facility] Comment on above: Performed By: #### C MP ####[facility] Qbiwgksowm336[address] [place], [place] [address]Dr. Airam Tripathi Urea nitrogen/Creatinine [Mass ratio] 27.5 mg/mg Normal [facility] Comment on above: Performed By: #### C MP ####[facility] Kbjqttouil239[address] [place], [place] [address]Dr. Airam Tripathi OSMOLALITYon 02-07-2022 Osmolality [Osmolality] 299 mosm/kg Critically high 275-295 [facility] Comment on above: Performed By: #### O SMO ####[facility] Xpskjuzlwi[address] [place], [place] [address]Dr. Airam Tripathi CBC AUTO DIFFon 02-03-2022 BASO # 0.0 103/ul Normal 0.0-0.1 [facility] Comment on above: Performed By: #### C BC ####[facility] Yvyjxekaau[address] [place], [place] [address]Dr. Airam Tripathi Basophils/100 WBC (Bld) 0.4 % Normal 0.2-2.0 [facility] Comment on above: Performed By: #### C BC ####[facility] Qmeenskbgs239[address] [place], [place] [address]Dr. Airam Tripathi EO # 0.3 103/ul Normal 0.0-0.7 [facility] Comment on above: Performed By: #### C BC ####[facility] Amgntpmdbw037[address] [place], [place] [address]Dr. Airam Tripathi Eosinophils/100 WBC (Bld) 3.6 % Normal 0.9-7.0 [facility] Comment on above: Performed By: #### C BC ####[facility] Lskbfdhmti5319[address] [place], [place] [address]Dr. Airam Tripathi Erythrocyte distribution width (RBC) [Ratio] 13.2 % Normal 11.0-15.0 [facility] Comment on above: Performed By: #### C BC ####[facility] Ejuigmdymg7326 [place] [address]DrKianna Airam Tripathi Hematocrit (Bld) [Volume fraction] 32.0 % Critically low 36.0-48.0 [facility] Comment on above: Performed By: #### C BC ####[facility] Emkntlably8440 [place] [address]DrKianna Tripathi Hemoglobin (Bld) [Mass/Vol] 9.8 g/dL Critically low 12.0-16.0 [facility] Comment on above: Performed By: #### C BC ####[facility] Plgnlxaxzq1401[address] [place], [place] [address]DrKianna Tripathi IG # 0.03 10e3/ul Normal 0.00-0.03 [facility] Comment on above: Performed By: #### C BC ####[facility] Hvidowewtq53[address] [place], [place] [address]DrKianna Tripathi IG % 0.4 % Normal 0.0-0.5 [facility] Comment on above: Performed By: #### C BC ####[facility] Xgmnreoysn119[address] [place], [place] [address]DrKianna Tripatih LYMPH # 1.7 103/ul Normal 1.2-3.8 [facility] Comment on above: Performed By: #### C BC ####[facility] Jfunvvxwdg680[address] [place], [place] [address]DrKianna Tripathi Lymphocytes/100 WBC (Bld) 24.8 % Normal 20.5-60.0 [facility] Comment on above: Performed By: #### C BC ####[facility] Cxdrgmsfzk178[address] [place], [place] [address]DrKianna Tripathi MANUAL DIFF REQ NO Normal [facility] Comment on above: Performed By: #### C BC ####[facility] Gytsaelqva074[address] [place], [place] [address]DrKianna Tripathi MCH (RBC) [Entitic mass] 29.6 pg Normal 26.7-34.0 [facility] Comment on above: Performed By: #### C BC ####[facility] Frfknjvaoi4343 [place] [phone]. Airam Deuce MCHC (RBC) [Mass/Vol] 30.6 g/dL Normal 29.9-35.2 [facility] Comment on above: Performed By: #### C BC ####[facility] Garufbzwbn5773 [place] [id number] Tripathi MCV (RBC) [Entitic vol] 96.7 fL Normal 81.0-99.0 [facility] Comment on above: Performed By: #### C BC ####[facility] Iqmltthrli377[address] [place], [place] [address]DrKianna Tripathi MONO # 0.4 103/ul Normal 0.3-0.8 [facility] Comment on above: Performed By: #### C BC ####[facility] Fuutkixcro529[address] [place], [place] [address]Dr. Airam Tripathi Monocytes/100 WBC (Bld) 6.3 % Normal 1.7-12.0 [facility] Comment on above: Performed By: #### C BC ####[facility] Qlgfbcfgre40[address] [place], [place] [address]DrKianna Tripathi NEUT # 4.5 103/ul Normal 1.4-6.5 [facility] Comment on above: Performed By: #### C BC ####[facility] Lxvcquxdhs2318[address] [place], [place] [address]DrKianna Tripathi Neutrophils/100 WBC (Bld) 64.5 % Normal 43.0-75.0 [facility] Comment on above: Performed By: #### C BC ####[facility] Goglrdyhgx[address] [place], [place] [id number] Tripathi Platelet mean volume (Bld) [Entitic vol] 9.3 fL Critically low 9.5-13.5 [facility] Comment on above: Performed By: #### C BC ####[facility] Aoeznwnsgl6[address] [place], [place] [id number] Tripathi PLT 243 103/ul Normal 150-450 [facility] Comment on above: Performed By: #### C BC ####[facility] Yhsjklnzho4785 [place] [phone]. Airam Tripathi RBC 3.31 106/ul Critically low 4.20-5.40 [facility] Comment on above: Performed By: #### C BC ####[facility] Wjmlfzriev1991 [place] [phone]. Airam Tripathi WBC 7.0 103/ul Normal 4.0-11.0 [facility] Comment on above: Performed By: #### C BC ####[facility] Zoflxktjel0787 [place] [address]Dr. Airam Tripathi PROF 14(COMP METB)on 022 Albumin [Mass/Vol] 3.3 g/dL Critically low 3.4-5.0 [facility] Comment on above: Performed By: #### C MP ####[facility] Rmpyvmhfee9590 [place] [address]Dr. Airam Tripathi Albumin/Globulin [Mass ratio] 1.1 {ratio} Normal [facility] Comment on above: Performed By: #### C MP ####[facility] Glqiqrokkj086[address] [place], [place] [address]Dr. Airam Tripathi ALP [Catalytic activity/Vol] 126 U/L Critically high 46-116 [facility] Comment on above: Performed By: #### C MP ####[facility] Lzrkajzcuq2760 [place] [address]Dr. Airam Tripathi ALT [Catalytic activity/Vol] 21 U/L Normal 14-59 [facility] Comment on above: Performed By: #### C MP ####[facility] Erzubrqjlv5558 [place] [phone]. Airam Tripathi Anion gap [Moles/Vol] 11.8 mmol/L Normal [facility] Comment on above: Performed By: #### C MP ####[facility] Pnygmogvgm5072 [place] [address]Dr. Airam Tripathi AST [Catalytic activity/Vol] 22 U/L Normal 15-37 [facility] Comment on above: Performed By: #### C MP ####[facility] Snxcejlnyt0361 [place] [address]Dr. Airam Tripathi Bilirubin [Mass/Vol] 0.3 mg/dL Normal 0.2-1.0 [facility] Comment on above: Performed By: #### C MP ####[facility] Ucenrcewxy0275 [place] [address]Dr. Airam Tripathi Calcium [Mass/Vol] 8.7 mg/dL Normal 8.5-10.1 [facility] Comment on above: Performed By: #### C MP ####[facility] Emqngrcxbs[address] [place], [place] [address]Dr. Airam Tripathi Chloride [Moles/Vol] 102 mmol/L Normal 98-107 [facility] Comment on above: Performed By: #### C MP ####[facility] Rhipwefgbk019[address] [place], [place] [address]Dr. Airam Tripathi CO2 [Moles/Vol] 25.5 mmol/L Normal 21.0-32.0 [facility] Comment on above: Performed By: #### C MP ####[facility] Kaknohojcx987[address] [place], [place] [address]Dr. Airam Tripathi Creatinine [Mass/Vol] 1.43 mg/dL Critically high 0.55-1.02 [facility] Comment on above: Performed By: #### C MP ####[facility] Oampelgfcu213[address] [place], [place] [address]Dr. Airam Tripathi EGFR-AF [place] 46 mL/min/1.73m2 Critically low >=60 [facility] Comment on above: Performed By: #### C MP ####[facility] Ikzaoydggq317[address] [place], [place] [address]Dr. Airam Deuce EGFR-NON AF [place] 38 mL/min/1.73m2 Critically low >=60 [facility] Comment on above: Performed By: #### C MP ####[facility] Xshbzrbxha55360[address] [place], [place] [address]Dr. Airam Deuce Globulin (S) [Mass/Vol] 2.9 g/dL Normal [facility] Comment on above: Performed By: #### C MP ####[facility] Mfxvghbjxp7689 [place] [address]Dr. Airam Tripathi Glucose [Mass/Vol] 83 mg/dL Normal 74-106 [facility] Comment on above: Performed By: #### C MP ####[facility] Qfpxrqxbuk5375 [place] [address]Dr. Airam Tripathi Potassium [Moles/Vol] 4.3 mmol/L Normal 3.5-5.1 [facility] Comment on above: Performed By: #### C MP ####[facility] Qrxnrlfgzd2081 [place] [address]Dr. Airam Tripathi Protein [Mass/Vol] 6.2 g/dL Critically low 6.4-8.2 [facility] Comment on above: Performed By: #### C MP ####[facility] Gwsauvvtkt[address] [place], [place] [address]Dr. Airam Tripathi Sodium [Moles/Vol] 135 mmol/L Critically low 136-145 [facility] Comment on above: Performed By: #### C MP ####[facility] Intdtypbva863[address] [place], [place] [address]Dr. Airam Tripathi Urea nitrogen [Mass/Vol] 39.0 mg/dL Critically high 7.0-18.0 [facility] Comment on above: Performed By: #### C MP ####[facility] Zdgenrlriw9[address] [place], [place] [address]Dr. Airam Tripathi Urea nitrogen/Creatinine [Mass ratio] 27.3 mg/mg Normal [facility] Comment on above: Performed By: #### C MP ####[facility] Yrgzpeydyq795[address] [place], [place] [address]Dr. Airam Deuce OSMOLALITYon 02-02-2022 Osmolality [Osmolality] 292 mosm/kg Normal 275-295 [facility] Comment on above: Performed By: #### O SMO ####[facility] Tiwvyghyws[address] [place], [place] [address]Dr. Airam Deuce CBC AUTO DIFFon 01-27-2022 BASO # 0.0 103/ul Normal 0.0-0.1 [facility] Comment on above: Performed By: #### C BC ####[facility] Uyctcrbhhd2214 [place] [address]Dr. Airam Tripathi Basophils/100 WBC (Bld) 0.4 % Normal 0.2-2.0 [facility] Comment on above: Performed By: #### C BC ####[facility] Yurtowrkvn44[address] [place], [place] [address]Dr. Airam Tripathi EO # 0.2 103/ul Normal 0.0-0.7 [facility] Comment on above: Performed By: #### C BC ####[facility] Erlwuddkyz726[address] [place], [place] [address]Dr. Airam Tripathi Eosinophils/100 WBC (Bld) 3.4 % Normal 0.9-7.0 [facility] Comment on above: Performed By: #### C BC ####[facility] Xaqvoykjmg953[address] [place], [place] [address]Dr. Airam Tripathi Erythrocyte distribution width (RBC) [Ratio] 13.1 % Normal 11.0-15.0 [facility] Comment on above: Performed By: #### C BC ####[facility] Jbvvecbcth199[address] [place], [place] [address]Dr. Airam Tripathi Hematocrit (Bld) [Volume fraction] 31.6 % Critically low 36.0-48.0 [facility] Comment on above: Performed By: #### C BC ####[facility] Litizdswkj833[address] [place], [place] [address]Dr. Airam Tripathi Hemoglobin (Bld) [Mass/Vol] 9.9 g/dL Critically low 12.0-16.0 [facility] Comment on above: Performed By: #### C BC ####[facility] Vakhqnczre200[address] [place], [place] [address]Dr. Airam Tripathi IG # 0.02 10e3/ul Normal 0.00-0.03 [facility] Comment on above: Performed By: #### C BC ####[facility] Vykbelsoer[address] [place], [place] [address]Dr. Selenaneil Tripathi IG % 0.4 % Normal 0.0-0.5 [facility] Comment on above: Performed By: #### C BC ####[facility] Yrnunxjlbw0440 [place] [address]Dr. Airam Deuce LYMPH # 1.0 103/ul Critically low 1.2-3.8 [facility] Comment on above: Performed By: #### C BC ####[facility] Xyejekktlg0654 [place] [address]Dr. Airam Deuce Lymphocytes/100 WBC (Bld) 17.4 % Critically low 20.5-60.0 [facility] Comment on above: Performed By: #### C BC ####[facility] Pgcipdmmvj48[address] [place], [place] [address]Dr. Selenaneil Tripathi MANUAL DIFF REQ NO Normal [facility] Comment on above: Performed By: #### C BC ####[facility] Rguidihenl7737[address] [place], [place] [address]Dr. Airam Deuce MCH (RBC) [Entitic mass] 30.1 pg Normal 26.7-34.0 [facility] Comment on above: Performed By: #### C BC ####[facility] Echjqblare964[address] [place], [place] [address]Dr. Airam Tripathi MCHC (RBC) [Mass/Vol] 31.3 g/dL Normal 29.9-35.2 [facility] Comment on above: Performed By: #### C BC ####[facility] Lvoyghnrur[address] [place], [place] [address]Dr. Airam Tripathi MCV (RBC) [Entitic vol] 96.0 fL Normal 81.0-99.0 [facility] Comment on above: Performed By: #### C BC ####[facility] Wiviepclwr50[address] [place], [place] [address]DrKianna Tripathi MONO # 0.5 103/ul Normal 0.3-0.8 [facility] Comment on above: Performed By: #### C BC ####[facility] Edxodcuqem9[address] [place], [place] [address]Dr. Airam Tripathi Monocytes/100 WBC (Bld) 8.6 % Normal 1.7-12.0 [facility] Comment on above: Performed By: #### C BC ####[facility] Kdpolcpsys8855 [place] [address]Dr. Airam Tripathi NEUT # 3.9 103/ul Normal 1.4-6.5 [facility] Comment on above: Performed By: #### C BC ####[facility] Pjuevczyuu6812 [place] [address]Dr. Airam Tripathi Neutrophils/100 WBC (Bld) 69.8 % Normal 43.0-75.0 [facility] Comment on above: Performed By: #### C BC ####[facility] Zhvurqpsft5896 [place] [address]Dr. Airam Tripathi Platelet mean volume (Bld) [Entitic vol] 9.6 fL Normal 9.5-13.5 [facility] Comment on above: Performed By: #### C BC ####[facility] Fnzjtgdokj675[address] [place], [place] [address]Dr. Airam Tripathi PLT 228 103/ul Normal 150-450 [facility] Comment on above: Performed By: #### C BC ####[facility] Kxjwwuofyh9[address] [place], [place] [address]Dr. Airam Tripathi RBC 3.29 106/ul Critically low 4.20-5.40 [facility] Comment on above: Performed By: #### C BC ####[facility] Tllkcchlfp4260 [place] [address]Dr. Airam Tripahti WBC 5.6 103/ul Normal 4.0-11.0 [facility] Comment on above: Performed By: #### C BC ####[facility] Yklxizmezb5739 [place] [address]DrKianna Tripathi PROF 14(COMP METB)on 022 Albumin [Mass/Vol] 3.1 g/dL Critically low 3.4-5.0 [facility] Comment on above: Performed By: #### C MP ####[facility] Oafmxrodgf2982 [place] [address]DrKianna Tripathi Albumin/Globulin [Mass ratio] 1.0 {ratio} Normal [facility] Comment on above: Performed By: #### C MP ####[facility] Ekkwqfnsiq4933 [place] [address]Dr. Airam Tripathi ALP [Catalytic activity/Vol] 131 U/L Critically high 46-116 [facility] Comment on above: Performed By: #### C MP ####[facility] Qyhacyrvsm2317 [place] [address]Dr. Airam Deuce ALT [Catalytic activity/Vol] 19 U/L Normal 14-59 [facility] Comment on above: Performed By: #### C MP ####[facility] Vrlxnwhltv[address] [place], [place] [address]Dr. Airam Tripathi Anion gap [Moles/Vol] 12.9 mmol/L Normal [facility] Comment on above: Performed By: #### C MP ####[facility] Rxeldjiyeq837[address] [place], [place] [address]Dr. Selenaneil Tripathi AST [Catalytic activity/Vol] 21 U/L Normal 15-37 [facility] Comment on above: Performed By: #### C MP ####[facility] Socjdyzfby423[address] [place], [place] [address]Dr. Selenaneil Deuce Bilirubin [Mass/Vol] 0.2 mg/dL Normal 0.2-1.0 [facility] Comment on above: Performed By: #### C MP ####[facility] Zaxscqvkzb820[address] [place], [place] [address]Dr. Airam Tripathi Calcium [Mass/Vol] 8.4 mg/dL Critically low 8.5-10.1 [facility] Comment on above: Performed By: #### C MP ####[facility] Nrhgtdrjwe270[address] [place], [place] [address]Dr. Airam Tripathi Chloride [Moles/Vol] 103 mmol/L Normal 98-107 [facility] Comment on above: Performed By: #### C MP ####[facility] Smsopmsqsk049[address] [place], [place] [address]Dr. Airam Tripathi CO2 [Moles/Vol] 23.7 mmol/L Normal 21.0-32.0 [facility] Comment on above: Performed By: #### C MP ####[facility] Htmuzumvui5396 [place] [phone]. Airam Tripathi Creatinine [Mass/Vol] 1.37 mg/dL Critically high 0.55-1.02 [facility] Comment on above: Performed By: #### C MP ####[facility] Xhvvnfgjzt2184 [place] [phone]. Airam Deuce EGFR-AF [place] 48 mL/min/1.73m2 Critically low >=60 [facility] Comment on above: Performed By: #### C MP ####[facility] Vkfglrzsxb2177 [place] [phone]. Airam Deuce EGFR-NON AF [place] 39 mL/min/1.73m2 Critically low >=60 [facility] Comment on above: Performed By: #### C MP ####[facility] Lnflrgyhva9363 [place] [address]Dr. Airam Deuce Globulin (S) [Mass/Vol] 3.1 g/dL Normal [facility] Comment on above: Performed By: #### C MP ####[facility] Moezmzvizm7341 [place] [address]Dr. Airam Tripathi Glucose [Mass/Vol] 88 mg/dL Normal 74-106 [facility] Comment on above: Performed By: #### C MP ####[facility] Dripdwtiot5378 [place] [address]Dr. Airam Deuce Potassium [Moles/Vol] 4.6 mmol/L Normal 3.5-5.1 [facility] Comment on above: Performed By: #### C MP ####[facility] Vbmadgdyfy3967 [place] [phone]. Airam Deuce Protein [Mass/Vol] 6.2 g/dL Critically low 6.4-8.2 [facility] Comment on above: Performed By: #### C MP ####[facility] Ovukrfijyy2053 [place] [id number]. Selenaneil Tripathi Sodium [Moles/Vol] 135 mmol/L Critically low 136-145 [facility] Comment on above: Performed By: #### C MP ####[facility] Wrvpmeqxda767[address] [place], [place] [address]Dr. Airam Tripathi Urea nitrogen [Mass/Vol] 34.0 mg/dL Critically high 7.0-18.0 [facility] Comment on above: Performed By: #### C MP ####[facility] Hhtzbdprzx296[address] [place], [place] [address]Dr. Airam Deuce Urea nitrogen/Creatinine [Mass ratio] 24.8 mg/mg Normal [facility] Comment on above: Performed By: #### C MP ####[facility] Qvxywmzhwk897[address] [place], [place] [address]Dr. Airam Deuce OSMOLALITYon 01-21-2022 Osmolality [Osmolality] 276 mosm/kg Normal 275-295 [facility] Comment on above: Performed By: #### O SMO ####[facility] Gipjustlms[address] [place], [place] [address]Dr. Airam Tripathi MRI CSPINE WO CONon 01-21-20 22 MRI CSPINE WO CON Normal [facility] CBC AUTO DIFFon 01-19-2022 BASO # 0.0 103/ul Normal 0.0-0.1 [facility] Comment on above: Performed By: #### C BC ####[facility] Suqnbslexd957[address] [place], [place] [address]Dr. Airam Tripathi Basophils/100 WBC (Bld) 0.2 % Normal 0.2-2.0 [facility] Comment on above: Performed By: #### C BC ####[facility] Igufwfocrb669[address] [place], [place] [address]Dr. Selenaneil Deuce EO # 0.2 103/ul Normal 0.0-0.7 [facility] Comment on above: Performed By: #### C BC ####[facility] Uusnyhqtsq039[address] [place], [place] [address]Dr. Airam Deuce Eosinophils/100 WBC (Bld) 2.1 % Normal 0.9-7.0 [facility] Comment on above: Performed By: #### C BC ####[facility] Ankjrjvgbw27[address] [place], [place] [address]Dr. Airam Tripathi Erythrocyte distribution width (RBC) [Ratio] 12.7 % Normal 11.0-15.0 [facility] Comment on above: Performed By: #### C BC ####[facility] Dorlfoegvz184[address] [place], [place] [address]Dr. Airam Tripathi Hematocrit (Bld) [Volume fraction] 32.2 % Critically low 36.0-48.0 [facility] Comment on above: Performed By: #### C BC ####[facility] Lgmnhbvnrw9[address] [place], [place] [address]Dr. Airam Tripathi Hemoglobin (Bld) [Mass/Vol] 10.4 g/dL Critically low 12.0-16.0 [facility] Comment on above: Performed By: #### C BC ####[facility] Gyxqrwhtnn079[address] [place], [place] [address]Dr. Airam Tripathi IG # 0.03 10e3/ul Normal 0.00-0.03 [facility] Comment on above: Performed By: #### C BC ####[facility] Trcveiyhnb[address] [place], [place] [address]Dr. Selenaneil Tripathi IG % 0.3 % Normal 0.0-0.5 [facility] Comment on above: Performed By: #### C BC ####[facility] Zdexknqxrp472[address] [place], [place] [address]Dr. Airam Tripathi LYMPH # 1.4 103/ul Normal 1.2-3.8 [facility] Comment on above: Performed By: #### C BC ####[facility] Rkbpdxpeey8[address] [place], [place] [address]Dr. Airam Tripathi Lymphocytes/100 WBC (Bld) 16.0 % Critically low 20.5-60.0 [facility] Comment on above: Performed By: #### C BC ####[facility] Lruttgkmge090[address] [place], [place] [address]Dr. Selenaneil Tripathi MANUAL DIFF REQ NO Normal [facility] Comment on above: Performed By: #### C BC ####[facility] Jfvhiskjly[address] [place], [place] [id number]. Airam Tripathi MCH (RBC) [Entitic mass] 30.0 pg Normal 26.7-34.0 [facility] Comment on above: Performed By: #### C BC ####[facility] Wekncomwdf2860 [place] [address]Dr. Airam Tripathi MCHC (RBC) [Mass/Vol] 32.3 g/dL Normal 29.9-35.2 [facility] Comment on above: Performed By: #### C BC ####[facility] Uzjbrrmpsq7719 [place] [address]Dr. Airam Tripathi MCV (RBC) [Entitic vol] 92.8 fL Normal 81.0-99.0 [facility] Comment on above: Performed By: #### C BC ####[facility] Iippluahoq5766 [place] [address]Dr. Airam Deuce MONO # 0.4 103/ul Normal 0.3-0.8 [facility] Comment on above: Performed By: #### C BC ####[facility] Pbpfblzdls[address] [place], [place] [address]Dr. Airam Deuce Monocytes/100 WBC (Bld) 4.9 % Normal 1.7-12.0 [facility] Comment on above: Performed By: #### C BC ####[facility] [facility] [address] [place] [address]Dr. Airam Tripathi NEUT # 6.6 103/ul Critically high 1.4-6.5 [facility] Comment on above: Performed By: #### C BC ####[facility] Nbzbkjannh[address] [place], [place] [address]Dr. Airam Deuce Neutrophils/100 WBC (Bld) 76.5 % Critically high 43.0-75.0 [facility] Comment on above: Performed By: #### C BC ####[facility] Jdmnthgali[address] [place] [address]Dr. Airam Deuce Platelet mean volume (Bld) [Entitic vol] 9.8 fL Normal 9.5-13.5 [facility] Comment on above: Performed By: #### C BC ####[facility] Ioqqmewzhk6753 [place] [id number]. Selenaneil Deuce PLT 262 103/ul Normal 150-450 [facility] Comment on above: Performed By: #### C BC ####[facility] Ebmdtfrxqx1723 [place] [id number]. Airam Tripathi RBC 3.47 106/ul Critically low 4.20-5.40 [facility] Comment on above: Performed By: #### C BC ####[facility] Qylbyigiih5938 [place] [address]Dr. Airam Tripathi WBC 8.7 103/ul Normal 4.0-11.0 [facility] Comment on above: Performed By: #### C BC ####[facility] Gjmgkkaqqn[address] [place], [place] [address]Dr. Airam Tripathi PROF 14(COMP METB)on 022 Albumin [Mass/Vol] 3.3 g/dL Critically low 3.4-5.0 [facility] Comment on above: Performed By: #### C MP ####[facility] Wafyaxqked[address] [place] [address]Dr. Airam Tripathi Albumin/Globulin [Mass ratio] 1.1 {ratio} Normal [facility] Comment on above: Performed By: #### C MP ####[facility] Hqgxdigmyi988[address] [place], [place] [address]Dr. Airam Tripathi ALP [Catalytic activity/Vol] 114 U/L Normal 46-116 [facility] Comment on above: Performed By: #### C MP ####[facility] Udlkogbxed0119 [place] [address]Dr. Airam Tripathi ALT [Catalytic activity/Vol] 20 U/L Normal 14-59 [facility] Comment on above: Performed By: #### C MP ####[facility] Shtchatnsx9[address] [place], [place] [address]Dr. Airam Tripathi Anion gap [Moles/Vol] 14.7 mmol/L Normal [facility] Comment on above: Performed By: #### C MP ####[facility] Jncmznmcfl28[address] [place] [address]Dr. Airam Tripathi AST [Catalytic activity/Vol] 22 U/L Normal 15-37 [facility] Comment on above: Performed By: #### C MP ####[facility] Vckrngahne[address] [place], [place] [address]Dr. Airam Tripathi Bilirubin [Mass/Vol] 0.3 mg/dL Normal 0.2-1.0 [facility] Comment on above: Performed By: #### C MP ####[facility] Tiweduuzpl[address] [place], [place] [address]Dr. Airam Tripathi Calcium [Mass/Vol] 8.8 mg/dL Normal 8.5-10.1 [facility] Comment on above: Performed By: #### C MP ####[facility] Zcdqwmuoom[address] [place], [place] [address]Dr. Airam Tripathi Chloride [Moles/Vol] 97 mmol/L Critically low 98-107 [facility] Comment on above: Performed By: #### C MP ####[facility] Qitauyumqg655[address] [place], [place] [address]Dr. Airam Tripathi CO2 [Moles/Vol] 24.5 mmol/L Normal 21.0-32.0 [facility] Comment on above: Performed By: #### C MP ####[facility] Mghyaikhck77[address] [place], [place] [address]Dr. Airam Tripathi Creatinine [Mass/Vol] 1.28 mg/dL Critically high 0.55-1.02 [facility] Comment on above: Performed By: #### C MP ####[facility] Ttjxcsqwyv485[address] [place], [place] [address]Dr. Airam Tripathi EGFR-AF [place] 52 mL/min/1.73m2 Critically low >=60 [facility] Comment on above: Performed By: #### C MP ####[facility] Efgtetwabu422[address] [place], [place] [address]Dr. Airam Tripathi EGFR-NON AF [place] 43 mL/min/1.73m2 Critically low >=60 [facility] Comment on above: Performed By: #### C MP ####[facility] Gezwbpqniu7[address] [place] [address]Dr. Airam Tripathi Globulin (S) [Mass/Vol] 3.1 g/dL Normal [facility] Comment on above: Performed By: #### C MP ####[facility] Ivhenlbzma0302 [place] [address]Dr. Airam Tripathi Glucose [Mass/Vol] 87 mg/dL Normal 74-106 [facility] Comment on above: Performed By: #### C MP ####[facility] Fsaakkrrfz2047 [place] [address]Dr. Airam Tripathi Potassium [Moles/Vol] 4.2 mmol/L Normal 3.5-5.1 [facility] Comment on above: Performed By: #### C MP ####[facility] Pjmafvtngi99[address] [place], [place] [address]Dr. Airam Tripathi Protein [Mass/Vol] 6.4 g/dL Normal 6.4-8.2 [facility] Comment on above: Performed By: #### C MP ####[facility] Ycbbmttscs347[address] [place], [place] [address]Dr. Airam Tripathi Sodium [Moles/Vol] 132 mmol/L Critically low 136-145 [facility] Comment on above: Performed By: #### C MP ####[facility] Aanmoobqwa414[address] [place], [place] [address]Dr. Airam Tripathi Urea nitrogen [Mass/Vol] 36.0 mg/dL Critically high 7.0-18.0 [facility] Comment on above: Performed By: #### C MP ####[facility] Ixliadjmku209[address] [place], [place] [address]Dr. Airam Tripathi Urea nitrogen/Creatinine [Mass ratio] 28.1 mg/mg Normal [facility] Comment on above: Performed By: #### C MP ####[facility] Eiuaytngvr[address] [place], [place] [address]Dr. Airam Tripathi XR DEXA BONE DENSITYon 01-19 XR DEXA BONE DENSITY Normal [facility] OSMOLALITYon 01-13-2022 Osmolality [Osmolality] 277 mosm/kg Normal 275-295 [facility] Comment on above: Performed By: #### O SMO ####[facility] Gultqigrpk04[address] [place] [address]Dr. Airam Tripathi CBC AUTO DIFFon 01-11-2022 BASO # 0.0 103/ul Normal 0.0-0.1 [facility] Comment on above: Performed By: #### C BC ####[facility] Drzkmhvjyl856[address] [place], [place] [address]Dr. Airam Tripathi Basophils/100 WBC (Bld) 0.5 % Normal 0.2-2.0 [facility] Comment on above: Performed By: #### C BC ####[facility] Ccwojzfieo[address] [place], [place] [address]Dr. Airam Tripathi EO # 0.2 103/ul Normal 0.0-0.7 [facility] Comment on above: Performed By: #### C BC ####[facility] Ksznarovzl[address] [place], [place] [address]Dr. Airam Tripathi Eosinophils/100 WBC (Bld) 3.1 % Normal 0.9-7.0 [facility] Comment on above: Performed By: #### C BC ####[facility] Cshswvyank128[address] [place], [place] [address]Dr. Selenaneil Tripathi Erythrocyte distribution width (RBC) [Ratio] 12.5 % Normal 11.0-15.0 [facility] Comment on above: Performed By: #### C BC ####[facility] Zblmgwndpr925[address] [place], [place] [address]Dr. Airam Tripathi Hematocrit (Bld) [Volume fraction] 34.4 % Critically low 36.0-48.0 [facility] Comment on above: Performed By: #### C BC ####[facility] Lfpbiawlpd185[address] [place], [place] [address]Dr. Airam Tripathi Hemoglobin (Bld) [Mass/Vol] 11.0 g/dL Critically low 12.0-16.0 [facility] Comment on above: Performed By: #### C BC ####[facility] Qxnlpkecvb24230[address] [place], [place] [address]Dr. Airam Tripathi IG # 0.03 10e3/ul Normal 0.00-0.03 [facility] Comment on above: Performed By: #### C BC ####[facility] Qrtmyzorif4676 [place] [address]DrKianna Airam Tripathi IG % 0.5 % Normal 0.0-0.5 [facility] Comment on above: Performed By: #### C BC ####[facility] Qqityjcfsa123[address] [place], [place] [address]DrKianna Airam Tripathi LYMPH # 1.6 103/ul Normal 1.2-3.8 [facility] Comment on above: Performed By: #### C BC ####[facility] Wevodbmjgq578[address] [place], [place] [address]DrKianna Airam Deuce Lymphocytes/100 WBC (Bld) 28.0 % Normal 20.5-60.0 [facility] Comment on above: Performed By: #### C BC ####[facility] Tlrsvtuugd[address] [place], [place] [address]DrKianna Airam Tripathi MANUAL DIFF REQ NO Normal [facility] Comment on above: Performed By: #### C BC ####[facility] Owpsziubpr[address] [place], [place] [address]DrKianna Airam Tripathi MCH (RBC) [Entitic mass] 30.1 pg Normal 26.7-34.0 [facility] Comment on above: Performed By: #### C BC ####[facility] Rbqdxxqutr[address] [place], [place] [address]DrKianna Airam Tripathi MCHC (RBC) [Mass/Vol] 32.0 g/dL Normal 29.9-35.2 [facility] Comment on above: Performed By: #### C BC ####[facility] Hyylsloevq[address] [place], [place] [address]DrKianna Airam Deuce MCV (RBC) [Entitic vol] 94.0 fL Normal 81.0-99.0 [facility] Comment on above: Performed By: #### C BC ####[facility] Txbuolbdhp224[address] [place], [place] [address]DrKianna Tripathi MONO # 0.4 103/ul Normal 0.3-0.8 [facility] Comment on above: Performed By: #### C BC ####[facility] Tjlrancdpb[address] [place] [address]Dr. Airam Tripathi Monocytes/100 WBC (Bld) 7.5 % Normal 1.7-12.0 [facility] Comment on above: Performed By: #### C BC ####[facility] Vuabxfdzff8827 [place] [address]Dr. Airam Tripathi NEUT # 3.5 103/ul Normal 1.4-6.5 [facility] Comment on above: Performed By: #### C BC ####[facility] Rpgmyxxzhu1528 [place] [address]Dr. Airam Tripathi Neutrophils/100 WBC (Bld) 60.4 % Normal 43.0-75.0 [facility] Comment on above: Performed By: #### C BC ####[facility] Senvymdnvk4379 [place] [address]Dr. Airam Tripathi Platelet mean volume (Bld) [Entitic vol] 10.0 fL Normal 9.5-13.5 [facility] Comment on above: Performed By: #### C BC ####[facility] Frtczbnjet7394 [place] [address]Dr. Airam Tripathi PLT 300 103/ul Normal 150-450 [facility] Comment on above: Performed By: #### C BC ####[facility] Zawdvcvmfl6667 [place] [address]Dr. Airam Tripathi RBC 3.66 106/ul Critically low 4.20-5.40 [facility] Comment on above: Performed By: #### C BC ####[facility] Ktnhxbdwev2652 [place] [phone]. Airam Tripathi WBC 5.7 103/ul Normal 4.0-11.0 [facility] Comment on above: Performed By: #### C BC ####[facility] Likbhiunrt3908 [place] [address]DrKianna Selenaneil Tripathi PROF 14(COMP METB)on 022 Albumin [Mass/Vol] 3.3 g/dL Critically low 3.4-5.0 [facility] Comment on above: Performed By: #### C MP ####[facility] Odlrvxkysp7[address] [place] [address]Dr. Airam Tripathi Albumin/Globulin [Mass ratio] 1.0 {ratio} Normal [facility] Comment on above: Performed By: #### C MP ####[facility] Hijbvsuzgd3633 [place] [address]Dr. Airam Tripathi ALP [Catalytic activity/Vol] 138 U/L Critically high 46-116 [facility] Comment on above: Performed By: #### C MP ####[facility] Znnqnjbydl[address] [place], [place] [address]Dr. Airam Tripathi ALT [Catalytic activity/Vol] 25 U/L Normal 14-59 [facility] Comment on above: Performed By: #### C MP ####[facility] Hyxlqchwwf[address] [place], [place] [address]Dr. Airam Tripathi Anion gap [Moles/Vol] 14.0 mmol/L Normal [facility] Comment on above: Performed By: #### C MP ####[facility] Vhmuxxuiuu118[address] [place], [place] [address]Dr. Airam Tripathi AST [Catalytic activity/Vol] 19 U/L Normal 15-37 [facility] Comment on above: Performed By: #### C MP ####[facility] Tskqahqkca[address] [place], [place] [address]Dr. Airam Tripathi Bilirubin [Mass/Vol] 0.3 mg/dL Normal 0.2-1.0 [facility] Comment on above: Performed By: #### C MP ####[facility] Nopcnqqlxz658[address] [place], [place] [address]Dr. Airam Tripathi Calcium [Mass/Vol] 8.7 mg/dL Normal 8.5-10.1 [facility] Comment on above: Performed By: #### C MP ####[facility] Cvqztozsyc[address] [place], [place] [address]Dr. Airam Tripathi Chloride [Moles/Vol] 99 mmol/L Normal 98-107 [facility] Comment on above: Performed By: #### C MP ####[facility] Bmygiyrprd9713 [place] [phone]. Airam Tripathi CO2 [Moles/Vol] 25.4 mmol/L Normal 21.0-32.0 [facility] Comment on above: Performed By: #### C MP ####[facility] Qkhnrbdehp3744 [place] [phone]. Airam Tripathi Creatinine [Mass/Vol] 1.22 mg/dL Critically high 0.55-1.02 [facility] Comment on above: Performed By: #### C MP ####[facility] Vudaevewyq2195 [place] [phone]. Airam Tripathi EGFR-AF [place] 55 mL/min/1.73m2 Critically low >=60 [facility] Comment on above: Performed By: #### C MP ####[facility] Zcwsuecbsg6518 [place] [address]Dr. Airam Tripathi EGFR-NON AF [place] 45 mL/min/1.73m2 Critically low >=60 [facility] Comment on above: Performed By: #### C MP ####[facility] Sowkgkzmki9290 [place] [phone]. Airam Tripathi Globulin (S) [Mass/Vol] 3.2 g/dL Normal [facility] Comment on above: Performed By: #### C MP ####[facility] Nuikjjizrc4049 [place] [phone]. Airam Tripathi Glucose [Mass/Vol] 111 mg/dL Critically high 74-106 [facility] Comment on above: Performed By: #### C MP ####[facility] Uorgicxtur3015 [place] [phone]. Airam Tripathi Potassium [Moles/Vol] 4.4 mmol/L Normal 3.5-5.1 [facility] Comment on above: Performed By: #### C MP ####[facility] Stkvisjvpp1956 [place] [phone]. Airam Tripathi Protein [Mass/Vol] 6.5 g/dL Normal 6.4-8.2 [facility] Comment on above: Performed By: #### C MP ####[facility] Xgnovicrlf5439 [place], [place] [address]Lj. Airam Tripathi Sodium [Moles/Vol] 134 mmol/L Critically low 136-145 [facility] Comment on above: Performed By: #### C MP ####[facility] Xywajlzyws8496 [place], [place] [address]Rm. Airam Tripathi Urea nitrogen [Mass/Vol] 27.0 mg/dL Critically high 7.0-18.0 [facility] Comment on above: Performed By: #### C MP ####[facility] Yfcvywqmug9959 [place], [place] [address]Hz. Airam Tripathi Urea nitrogen/Creatinine [Mass ratio] 22.1 mg/mg Normal [facility] Comment on above: Performed By: #### C MP ####[facility] Rojabhhpyz9810 [place], [place] [address]Ey. Airam Tripathi CT CERVICAL SPINE WITHOUT CO NTRASTon 01-10-2022 CT CERVICAL SPINE WITHOUT CONTRAST [facility] Department of Radiology [address] [place] [id number] Patient Name: MABEL MOSER : 1960 Sex: F Age: Race: White Pt. Location: Patient Status: D Ordered Date: 08/17/2021 10:00:00 [...] achievable. Electronically signed: Ayleen Ny. Transcribed by: [email or web address], User Resident: Electronically Signed by: AYLEEN [place] @ 01/12/2022 12:32 PM Normal [facility] OSMOLALITYon 01-07-2022 Osmolality [Osmolality] 286 mosm/kg Normal 275-295 [facility] Comment on above: Performed By: #### O SMO ####[facility] Eqbvijyose4275 [place] [phone]. Alegria Tripathi CBC AUTO DIFFon 01-06-2022 BASO # 0.0 103/ul Normal 0.0-0.1 [facility] Comment on above: Performed By: #### C BC ####[facility] Uezrrytubl0304 [place] [address]Dr. Airam Tripathi Basophils/100 WBC (Bld) 0.3 % Normal 0.2-2.0 [facility] Comment on above: Performed By: #### C BC ####[facility] Dnljceoyfm0697 [place] [address]Dr. Airam Tripathi EO # 0.2 103/ul Normal 0.0-0.7 [facility] Comment on above: Performed By: #### C BC ####[facility] Vzmwdudfrf3321 [place] [address]Dr. Airam Tripathi Eosinophils/100 WBC (Bld) 4.1 % Normal 0.9-7.0 [facility] Comment on above: Performed By: #### C BC ####[facility] Mtghhkscev[address] [place], [place] [address]Dr. Airam Tripathi Erythrocyte distribution width (RBC) [Ratio] 12.9 % Normal 11.0-15.0 [facility] Comment on above: Performed By: #### C BC ####[facility] Xfyokgcnrl2566 [place] [address]Dr. Airam Tripathi Hematocrit (Bld) [Volume fraction] 34.2 % Critically low 36.0-48.0 [facility] Comment on above: Performed By: #### C BC ####[facility] Cdujlqlgym[address] [place], [place] [address]Dr. Airam Tripathi Hemoglobin (Bld) [Mass/Vol] 10.6 g/dL Critically low 12.0-16.0 [facility] Comment on above: Performed By: #### C BC ####[facility] Cqmefawnar[address] [place], [place] [address]Dr. Airam Tripathi IG # 0.03 10e3/ul Normal 0.00-0.03 [facility] Comment on above: Performed By: #### C BC ####[facility] Xsygphkewv3620 [place] [phone]. Airam Tripathi IG % 0.5 % Normal 0.0-0.5 [facility] Comment on above: Performed By: #### C BC ####[facility] Krbseargup9079 [place] [phone]. Airam Tripathi LYMPH # 1.1 103/ul Critically low 1.2-3.8 [facility] Comment on above: Performed By: #### C BC ####[facility] Mmaizjwkpx8063 [place] [phone]. Airam Tripathi Lymphocytes/100 WBC (Bld) 18.2 % Critically low 20.5-60.0 [facility] Comment on above: Performed By: #### C BC ####[facility] Gxebescvjt4692 [place] [phone]. Airam Deuce MANUAL DIFF REQ NO Normal [facility] Comment on above: Performed By: #### C BC ####[facility] Wcprznhqnl4695 [place] [phone]. Airam Tripathi MCH (RBC) [Entitic mass] 29.6 pg Normal 26.7-34.0 [facility] Comment on above: Performed By: #### C BC ####[facility] Ouqqqtzdpq2825 [place] [phone]. Airam Tripathi MCHC (RBC) [Mass/Vol] 31.0 g/dL Normal 29.9-35.2 [facility] Comment on above: Performed By: #### C BC ####[facility] Nmgvqmotzo3151 [place] [phone]. Airam Tripathi MCV (RBC) [Entitic vol] 95.5 fL Normal 81.0-99.0 [facility] Comment on above: Performed By: #### C BC ####[facility] Zlmedlrgyd8021 [place] [phone]. Airam Deuce MONO # 0.5 103/ul Normal 0.3-0.8 [facility] Comment on above: Performed By: #### C BC ####[facility] Txduyiyuzz4564 [place] [phone]. Airam Tripathi Monocytes/100 WBC (Bld) 8.5 % Normal 1.7-12.0 [facility] Comment on above: Performed By: #### C BC ####[facility] Ezolntixob0026 [place] [phone]. Airam Tripathi NEUT # 4.0 103/ul Normal 1.4-6.5 [facility] Comment on above: Performed By: #### C BC ####[facility] Yhuvhfrkav1405 [place] [phone]. iAram Tripathi Neutrophils/100 WBC (Bld) 68.4 % Normal 43.0-75.0 [facility] Comment on above: Performed By: #### C BC ####[facility] Zbdvinofwp4227 [place] [address]Dr. Airam Tripathi Platelet mean volume (Bld) [Entitic vol] 10.1 fL Normal 9.5-13.5 [facility] Comment on above: Performed By: #### C BC ####[facility] Drhvjerqbc7926 [place] [phone]. Airam Tripathi PLT 304 103/ul Normal 150-450 [facility] Comment on above: Performed By: #### C BC ####[facility] Emxeikavle4460 [place] [phone]. Airam Tripathi RBC 3.58 106/ul Critically low 4.20-5.40 [facility] Comment on above: Performed By: #### C BC ####[facility] Loqljtjdin2993 [place] [phone]. Airam Tripathi WBC 5.9 103/ul Normal 4.0-11.0 [facility] Comment on above: Performed By: #### C BC ####[facility] Lgltulsbif8817 [place] [address]Dr. Airam Tripathi MG MAMM RT DIAG FUon 022 MG MAMM RT DIAG FU Normal [facility] PROF 14(COMP METB)on 022 Albumin [Mass/Vol] 3.1 g/dL Critically low 3.4-5.0 [facility] Comment on above: Performed By: #### C MP ####[facility] Uxwdyevcta1500 [place] [address]Dr. Airam Tripathi Albumin/Globulin [Mass ratio] 1.0 {ratio} Normal [facility] Comment on above: Performed By: #### C MP ####[facility] Lshtzdttqg2282 [place] [address]Dr. Airam Tripathi ALP [Catalytic activity/Vol] 143 U/L Critically high 46-116 [facility] Comment on above: Performed By: #### C MP ####[facility] Bfhnbdlvma[address] [place], [place] [address]Dr. Airam Tripathi ALT [Catalytic activity/Vol] 23 U/L Normal 14-59 [facility] Comment on above: Performed By: #### C MP ####[facility] Tgkxcuywix[address] [place], [place] [address]Dr. Airam Tripathi Anion gap [Moles/Vol] 13.2 mmol/L Normal [facility] Comment on above: Performed By: #### C MP ####[facility] Mwcxxzgnoo788[address] [place], [place] [address]Dr. Airam Tripathi AST [Catalytic activity/Vol] 20 U/L Normal 15-37 [facility] Comment on above: Performed By: #### C MP ####[facility] Ldoswowsrs245[address] [place], [place] [address]Dr. Airam Tripathi Bilirubin [Mass/Vol] 0.3 mg/dL Normal 0.2-1.0 [facility] Comment on above: Performed By: #### C MP ####[facility] Zhvstqrpzr378[address] [place], [place] [address]Dr. Airam Tripathi Calcium [Mass/Vol] 8.2 mg/dL Critically low 8.5-10.1 [facility] Comment on above: Performed By: #### C MP ####[facility] Xlxqyhclwq144[address] [place], [place] [address]Dr. Airam Tripathi Chloride [Moles/Vol] 100 mmol/L Normal 98-107 [facility] Comment on above: Performed By: #### C MP ####[facility] Rxjombsjav5354 [place] [phone]. Airam Tripathi CO2 [Moles/Vol] 26.0 mmol/L Normal 21.0-32.0 [facility] Comment on above: Performed By: #### C MP ####[facility] Phxjzywswb1415 [place] [address]Dr. Airam Tripathi Creatinine [Mass/Vol] 1.52 mg/dL Critically high 0.55-1.02 [facility] Comment on above: Performed By: #### C MP ####[facility] Gokkbtofnw4158 [place] [phone]. Airam Tripathi EGFR-AF [place] 42 mL/min/1.73m2 Critically low >=60 [facility] Comment on above: Performed By: #### C MP ####[facility] Bkvfwmgjek[address] [place], [place] [address]Dr. Airam Tripathi EGFR-NON AF [place] 35 mL/min/1.73m2 Critically low >=60 [facility] Comment on above: Performed By: #### C MP ####[facility] Bbintjfzhd9954 [place] [address]Dr. Airam Tripathi Globulin (S) [Mass/Vol] 3.2 g/dL Normal [facility] Comment on above: Performed By: #### C MP ####[facility] Ubwkvhfjkm6783 [place] [address]Dr. Airam Tripathi Glucose [Mass/Vol] 84 mg/dL Normal 74-106 [facility] Comment on above: Performed By: #### C MP ####[facility] Djtccqhqhf9283 [place] [phone]. Airam Tripathi Potassium [Moles/Vol] 4.2 mmol/L Normal 3.5-5.1 [facility] Comment on above: Performed By: #### C MP ####[facility] Ilvwglzzea2877 [place] [address]Dr. Airam Tripathi Protein [Mass/Vol] 6.3 g/dL Critically low 6.4-8.2 [facility] Comment on above: Performed By: #### C MP ####[facility] Qgzxnyedhh9[address] [place], [place] [address]DrKianna Tripathi Sodium [Moles/Vol] 135 mmol/L Critically low 136-145 [facility] Comment on above: Performed By: #### C MP ####[facility] Djcxrkdkbw409[address] [place], [place] [address]DrKianna Tripathi Urea nitrogen [Mass/Vol] 36.0 mg/dL Critically high 7.0-18.0 [facility] Comment on above: Performed By: #### C MP ####[facility] Afnwvnmfym[address] [place], [place] [address]DrKianna Tripathi Urea nitrogen/Creatinine [Mass ratio] 23.7 mg/mg Normal [facility] Comment on above: Performed By: #### C MP ####[facility] Lzntgsvbpo[address] [place], [place] [address]DrKianna Tripathi US BREAST RIGHT LIMITEDon US BREAST RIGHT LIMITED Normal [facility] OSMOLALITYon 12-31-2021 Osmolality [Osmolality] 280 mosm/kg Normal 275-295 [facility] Comment on above: Performed By: #### O SMO ####[facility] Ctbnbcplxt[address] [place], [place] [address]DrKianna Tripathi CBC AUTO DIFFon 12-30-2021 BASO # 0.0 103/ul Normal 0.0-0.1 [facility] Comment on above: Performed By: #### C BC ####[facility] Tgbhhirxrj[address] [place], [place] [address]DrKianna Tripathi Basophils/100 WBC (Bld) 0.5 % Normal 0.2-2.0 [facility] Comment on above: Performed By: #### C BC ####[facility] Jnsxzixqcs6[address] [place], [place] [address]DrKianna Tripathi EO # 0.3 103/ul Normal 0.0-0.7 [facility] Comment on above: Performed By: #### C BC ####[facility] Yfrerrhdha[address] [place], [place] [address]Dr. Airam Tripathi Eosinophils/100 WBC (Bld) 3.5 % Normal 0.9-7.0 [facility] Comment on above: Performed By: #### C BC ####[facility] Izlpxklkpr45[address] [place] [address]Dr. Airam Tripathi Erythrocyte distribution width (RBC) [Ratio] 13.0 % Normal 11.0-15.0 [facility] Comment on above: Performed By: #### C BC ####[facility] Jscuicflah47[address] [place], [place] [address]Dr. Airam Tripathi Hematocrit (Bld) [Volume fraction] 34.2 % Critically low 36.0-48.0 [facility] Comment on above: Performed By: #### C BC ####[facility] Vwqcsukjwv[address] [place], [place] [address]Dr. Airam Tripathi Hemoglobin (Bld) [Mass/Vol] 10.4 g/dL Critically low 12.0-16.0 [facility] Comment on above: Performed By: #### C BC ####[facility] Lipnqyqwfn801[address] [place], [place] [address]Dr. Airam Tripathi IG # 0.04 10e3/ul Critically high 0.00-0.03 [facility] Comment on above: Performed By: #### C BC ####[facility] Jvapnalqql975[address] [place], [place] [address]Dr. Airam Tripathi IG % 0.5 % Normal 0.0-0.5 [facility] Comment on above: Performed By: #### C BC ####[facility] Dlnvboveru815[address] [place], [place] [address]Dr. Airam Tripathi LYMPH # 2.1 103/ul Normal 1.2-3.8 [facility] Comment on above: Performed By: #### C BC ####[facility] Piwwaazndq1714[address] [place], [place] [address]Dr. Airam Tripathi Lymphocytes/100 WBC (Bld) 23.5 % Normal 20.5-60.0 [facility] Comment on above: Performed By: #### C BC ####[facility] Bfyfaqvydj5303 [place] [address]Dr. Airam Deuce MANUAL DIFF REQ NO Normal [facility] Comment on above: Performed By: #### C BC ####[facility] Aphybxaihj1824 [place] [address]Dr. Airam Tripathi MCH (RBC) [Entitic mass] 29.4 pg Normal 26.7-34.0 [facility] Comment on above: Performed By: #### C BC ####[facility] Spvntdrnwq3112[address] [place], [place] [address]Dr. Airam Deuce MCHC (RBC) [Mass/Vol] 30.4 g/dL Normal 29.9-35.2 [facility] Comment on above: Performed By: #### C BC ####[facility] Jhvggqqzmv68400[address] [place], [place] [address]Dr. Selenaneil Tripathi MCV (RBC) [Entitic vol] 96.6 fL Normal 81.0-99.0 [facility] Comment on above: Performed By: #### C BC ####[facility] Tlirywtpdn425[address] [place], [place] [address]Dr. Airam Deuce MONO # 0.6 103/ul Normal 0.3-0.8 [facility] Comment on above: Performed By: #### C BC ####[facility] Rxtdmsuflj980[address] [place], [place] [address]Dr. Airam Tripathi Monocytes/100 WBC (Bld) 6.4 % Normal 1.7-12.0 [facility] Comment on above: Performed By: #### C BC ####[facility] Yxhdkyqqay588[address] [place], [place] [address]Dr. Selenaneil Deuce NEUT # 5.8 103/ul Normal 1.4-6.5 [facility] Comment on above: Performed By: #### C BC ####[facility] Xsgtjflhgs118[address] [place], [place] [address]Dr. Selenaneil Tripathi Neutrophils/100 WBC (Bld) 65.6 % Normal 43.0-75.0 [facility] Comment on above: Performed By: #### C BC ####[facility] Ixjpixloea2918[address] [place], [place] [address]Dr. Airam Tripathi Platelet mean volume (Bld) [Entitic vol] 9.2 fL Critically low 9.5-13.5 [facility] Comment on above: Performed By: #### C BC ####[facility] Xidsssanci12[address] [place] [address]Dr. Airam Tripathi PLT 338 103/ul Normal 150-450 [facility] Comment on above: Performed By: #### C BC ####[facility] Rzxqzgwkxc4963 [place] [address]Dr. Airam Tripathi RBC 3.54 106/ul Critically low 4.20-5.40 [facility] Comment on above: Performed By: #### C BC ####[facility] Yljnmxhcrt2453 [place] [address]Dr. Airam Tripathi WBC 8.9 103/ul Normal 4.0-11.0 [facility] Comment on above: Performed By: #### C BC ####[facility] Caleqdafix2067 [place] [address]Dr. Airam Tripathi MG MAMM SCREEN 3D GUMARO CADon 12-30-2021 MG MAMM SCREEN 3D GUMARO CAD Normal [facility] PROF 14(COMP METB)on 022 Albumin [Mass/Vol] 3.6 g/dL Normal 3.4-5.0 [facility] Comment on above: Performed By: #### C MP ####[facility] Gydikdrwnq1494 [place] [address]Dr. Airam Tripathi Albumin/Globulin [Mass ratio] 1.1 {ratio} Normal [facility] Comment on above: Performed By: #### C MP ####[facility] Zyfqzfanjl4195 [place] [address]Dr. Selenaneil Deuce ALP [Catalytic activity/Vol] 117 U/L Critically high 46-116 [facility] Comment on above: Performed By: #### C MP ####[facility] Dessfnlmtk2023 [place] [address]Dr. Airam Tripathi ALT [Catalytic activity/Vol] 26 U/L Normal 14-59 [facility] Comment on above: Performed By: #### C MP ####[facility] Rusbnzldox7563 [place] [phone]. Airam Tripathi Anion gap [Moles/Vol] 11.2 mmol/L Normal [facility] Comment on above: Performed By: #### C MP ####[facility] Ywmkbsrasp2830 [place] [phone]. Airam Tripathi AST [Catalytic activity/Vol] 29 U/L Normal 15-37 [facility] Comment on above: Performed By: #### C MP ####[facility] Lzcpvkvouf0367 [place] [phone]. Airam Tripathi Bilirubin [Mass/Vol] 0.3 mg/dL Normal 0.2-1.0 [facility] Comment on above: Performed By: #### C MP ####[facility] Ccnhttoojb[address] [place], [place] [address]Dr. Airam Tripathi Calcium [Mass/Vol] 9.1 mg/dL Normal 8.5-10.1 [facility] Comment on above: Performed By: #### C MP ####[facility] Jnjpjkfbir187[address] [place], [place] [address]Dr. Airam Tripathi Chloride [Moles/Vol] 101 mmol/L Normal 98-107 [facility] Comment on above: Performed By: #### C MP ####[facility] Byqmtrpwgc[address] [place], [place] [id number]. Airam Tripathi CO2 [Moles/Vol] 26.8 mmol/L Normal 21.0-32.0 [facility] Comment on above: Performed By: #### C MP ####[facility] Fpllrzpmxk8328 [place] [phone]. Airam Tripathi Creatinine [Mass/Vol] 1.56 mg/dL Critically high 0.55-1.02 [facility] Comment on above: Performed By: #### C MP ####[facility] Zbefskpaan1558 [place] [phone]. Airam Tripathi EGFR-AF [place] 41 mL/min/1.73m2 Critically low >=60 [facility] Comment on above: Performed By: #### C MP ####[facility] Ssbyebvvir8019 [place] [phone]. Airam Tripathi EGFR-NON AF [place] 34 mL/min/1.73m2 Critically low >=60 [facility] Comment on above: Performed By: #### C MP ####[facility] Cxmhcwmcki8447 [place] [phone]. Airam Tripathi Globulin (S) [Mass/Vol] 3.3 g/dL Normal [facility] Comment on above: Performed By: #### C MP ####[facility] Gmrrsxgwsj8091 [place] [phone]. Airam Tripathi Glucose [Mass/Vol] 84 mg/dL Normal 74-106 [facility] Comment on above: Performed By: #### C MP ####[facility] Lppbacvzgt1684 [place] [phone]. Airam Tripathi Potassium [Moles/Vol] 5.0 mmol/L Normal 3.5-5.1 [facility] Comment on above: Performed By: #### C MP ####[facility] Suylhrjdvd6945 [place] [phone]. iAram Tripathi Protein [Mass/Vol] 6.9 g/dL Normal 6.4-8.2 [facility] Comment on above: Performed By: #### C MP ####[facility] Vdgmrrmzvr2885 [place] [phone]. Airam Tripathi Sodium [Moles/Vol] 134 mmol/L Critically low 136-145 [facility] Comment on above: Performed By: #### C MP ####[facility] Savovwbcwn5828 [place] [phone]. Airam Tripathi Urea nitrogen [Mass/Vol] 28.0 mg/dL Critically high 7.0-18.0 [facility] Comment on above: Performed By: #### C MP ####[facility] Dntmcskqgd8782 [place] [phone]. Airam Tripathi Urea nitrogen/Creatinine [Mass ratio] 17.9 mg/mg Normal [facility] Comment on above: Performed By: #### C MP ####[facility] Tcrrdfqavh3030 [place] [address]Dr. Airam Tripathi OSMOLALITYon 12-24-2021 Osmolality [Osmolality] 287 mosm/kg Normal 275-295 [facility] Comment on above: Performed By: #### O SMO ####[facility] Pvejkfvpuz[address] [place], [place] [address]Dr. Airam Tripathi CBC AUTO DIFFon 12-22-2021 BASO # 0.0 103/ul Normal 0.0-0.1 [facility] Comment on above: Performed By: #### C BC ####[facility] Zsguicqabl9200 [place] [address]Dr. Airam Tripathi Basophils/100 WBC (Bld) 0.5 % Normal 0.2-2.0 [facility] Comment on above: Performed By: #### C BC ####[facility] Onajuhfffn[address] [place], [place] [address]Dr. Airam Tripathi EO # 0.4 103/ul Normal 0.0-0.7 [facility] Comment on above: Performed By: #### C BC ####[facility] Wraxifinlh278[address] [place], [place] [address]Dr. Airam Tripathi Eosinophils/100 WBC (Bld) 6.4 % Normal 0.9-7.0 [facility] Comment on above: Performed By: #### C BC ####[facility] Eeeqbskyrw006[address] [place], [place] [address]Dr. Airam Tripathi Erythrocyte distribution width (RBC) [Ratio] 13.2 % Normal 11.0-15.0 [facility] Comment on above: Performed By: #### C BC ####[facility] Yhkyzxtthv399[address] [place], [place] [address]Dr. Airam Tripathi Hematocrit (Bld) [Volume fraction] 32.2 % Critically low 36.0-48.0 [facility] Comment on above: Performed By: #### C BC ####[facility] Ihytnrwiqi036[address] [place], [place] [address]Dr. Airam Tripathi Hemoglobin (Bld) [Mass/Vol] 10.1 g/dL Critically low 12.0-16.0 [facility] Comment on above: Performed By: #### C BC ####[facility] Ourvfuvook[address]66 [place] [address]Dr. Airam Tripathi IG # 0.03 10e3/ul Normal 0.00-0.03 [facility] Comment on above: Performed By: #### C BC ####[facility] Uaypqcabdb3923 [place] [address]DrKianna Tripathi IG % 0.5 % Normal 0.0-0.5 [facility] Comment on above: Performed By: #### C BC ####[facility] Bhyxxtvxrc2307 [place] [address]DrKianna Tripathi LYMPH # 1.3 103/ul Normal 1.2-3.8 [facility] Comment on above: Performed By: #### C BC ####[facility] Zsxnjwhilp[address] [place], [place] [address]DrKianna Tripathi Lymphocytes/100 WBC (Bld) 20.5 % Normal 20.5-60.0 [facility] Comment on above: Performed By: #### C BC ####[facility] Pbotpoyaeg9887 [place] [address]DrKianna Tripathi MANUAL DIFF REQ NO Normal [facility] Comment on above: Performed By: #### C BC ####[facility] Tsjgcfyznq4933 [place] [address]Dr. Airam Tripathi MCH (RBC) [Entitic mass] 30.1 pg Normal 26.7-34.0 [facility] Comment on above: Performed By: #### C BC ####[facility] Iecpddlvie8164 [place] [address]Dr. Airam Tripathi MCHC (RBC) [Mass/Vol] 31.4 g/dL Normal 29.9-35.2 [facility] Comment on above: Performed By: #### C BC ####[facility] Vgfcgminln8157 [place] [address]Dr. Airam Tripathi MCV (RBC) [Entitic vol] 95.8 fL Normal 81.0-99.0 [facility] Comment on above: Performed By: #### C BC ####[facility] Hfbwajemsi2652 [place] [phone]. Airam Tripathi MONO # 0.5 103/ul Normal 0.3-0.8 [facility] Comment on above: Performed By: #### C BC ####[facility] Jqzrpodpdr7828 [place] [phone]. Airam Tripathi Monocytes/100 WBC (Bld) 7.4 % Normal 1.7-12.0 [facility] Comment on above: Performed By: #### C BC ####[facility] Unedflthml6126 [place] [phone]. Airam Tripathi NEUT # 3.9 103/ul Normal 1.4-6.5 [facility] Comment on above: Performed By: #### C BC ####[facility] Ianoqbqugg710[address] [place], [place] [address]Dr. Airam Tripathi Neutrophils/100 WBC (Bld) 64.7 % Normal 43.0-75.0 [facility] Comment on above: Performed By: #### C BC ####[facility] Nlomomtosc1643 [place] [phone]. Airam Tripathi Platelet mean volume (Bld) [Entitic vol] 9.2 fL Critically low 9.5-13.5 [facility] Comment on above: Performed By: #### C BC ####[facility] Algtpiuiib2312 [place] [address]Dr. Airam Tripathi PLT 309 103/ul Normal 150-450 [facility] Comment on above: Performed By: #### C BC ####[facility] Ekcblmidic6097 [place] [phone]. Airam Tripathi RBC 3.36 106/ul Critically low 4.20-5.40 [facility] Comment on above: Performed By: #### C BC ####[facility] Fqjrkspkii1948 [place] [phone]. Airam Tripathi WBC 6.1 103/ul Normal 4.0-11.0 [facility] Comment on above: Performed By: #### C BC ####[facility] Tsmwmzatbd6300 [place] [address]Dr. Airam Tripathi PROF 14(COMP METB)on 022 Albumin [Mass/Vol] 3.2 g/dL Critically low 3.4-5.0 [facility] Comment on above: Performed By: #### C MP ####[facility] Rdvvdazxry0097 [place] [address]Dr. Airam Tripathi Albumin/Globulin [Mass ratio] 1.1 {ratio} Normal [facility] Comment on above: Performed By: #### C MP ####[facility] Uwbshssrqy274[address] [place], [place] [address]Dr. Airam Tripathi ALP [Catalytic activity/Vol] 123 U/L Critically high 46-116 [facility] Comment on above: Performed By: #### C MP ####[facility] Opprhjpgvu0217[address] [place], [place] [address]Dr. Airam Tripathi ALT [Catalytic activity/Vol] 26 U/L Normal 14-59 [facility] Comment on above: Performed By: #### C MP ####[facility] Ssdbbhmjaf055[address] [place], [place] [address]Dr. Airam Tripathi Anion gap [Moles/Vol] 14.5 mmol/L Normal [facility] Comment on above: Performed By: #### C MP ####[facility] Ywhdkctqvk569[address] [place], [place] [address]Dr. Airam Tripathi AST [Catalytic activity/Vol] 23 U/L Normal 15-37 [facility] Comment on above: Performed By: #### C MP ####[facility] Xpypodfndl458[address] [place], [place] [address]Dr. Airam Tripathi Bilirubin [Mass/Vol] 0.3 mg/dL Normal 0.2-1.0 [facility] Comment on above: Performed By: #### C MP ####[facility] Ccekoqavij034[address] [place], [place] [address]Dr. Airam Tripathi Calcium [Mass/Vol] 8.2 mg/dL Critically low 8.5-10.1 [facility] Comment on above: Performed By: #### C MP ####[facility] Wfdaujbxhe7493 [place] [address]Dr. Airam Tripathi Chloride [Moles/Vol] 102 mmol/L Normal 98-107 [facility] Comment on above: Performed By: #### C MP ####[facility] Tslkkvnnrm6541 [place] [address]Dr. Airam Tripathi CO2 [Moles/Vol] 23.2 mmol/L Normal 21.0-32.0 [facility] Comment on above: Performed By: #### C MP ####[facility] Tczpwkrdsz246[address] [place], [place] [address]Dr. Airam Tripathi Creatinine [Mass/Vol] 1.98 mg/dL Critically high 0.55-1.02 [facility] Comment on above: Performed By: #### C MP ####[facility] Mpmnnhejaf525[address] [place], [place] [address]Dr. Airam Tripathi EGFR-AF [place] 31 mL/min/1.73m2 Critically low >=60 [facility] Comment on above: Performed By: #### C MP ####[facility] Doymiwncfx628[address] [place], [place] [address]Dr. Airam Tripathi EGFR-NON AF [place] 26 mL/min/1.73m2 Critically low >=60 [facility] Comment on above: Performed By: #### C MP ####[facility] Odgumlbrxg33110[address] [place], [place] [address]Dr. Airam Tripathi Globulin (S) [Mass/Vol] 3.0 g/dL Normal [facility] Comment on above: Performed By: #### C MP ####[facility] Gngtxujiun637[address] [place], [place] [address]Dr. Airam Tripathi Glucose [Mass/Vol] 131 mg/dL Critically high 74-106 [facility] Comment on above: Performed By: #### C MP ####[facility] Lteyohenxn135[address] [place], [place] [address]Dr. Airam Tripathi Potassium [Moles/Vol] 4.7 mmol/L Normal 3.5-5.1 [facility] Comment on above: Performed By: #### C MP ####[facility] Ndsqwyxhdk2705 [place] [phone]. Airam Tripathi Protein [Mass/Vol] 6.2 g/dL Critically low 6.4-8.2 [facility] Comment on above: Performed By: #### C MP ####[facility] Crbjnkfvfv1427 [place] [address]Dr. Airam Deuce Sodium [Moles/Vol] 135 mmol/L Critically low 136-145 [facility] Comment on above: Performed By: #### C MP ####[facility] Vqnjraqdap117[address] [place], [place] [address]Dr. Airam Deuce Urea nitrogen [Mass/Vol] 37.0 mg/dL Critically high 7.0-18.0 [facility] Comment on above: Performed By: #### C MP ####[facility] Jnfysxtwxf198[address] [place], [place] [address]Dr. Selenaneil Tripathi Urea nitrogen/Creatinine [Mass ratio] 18.7 mg/mg Normal [facility] Comment on above: Performed By: #### C MP ####[facility] Morjnqmgvo176[address] [place], [place] [address]Dr. Airam Deuce OSMOLALITYon 12-18-2021 Osmolality [Osmolality] 271 mosm/kg Critically low 275-295 [facility] Comment on above: Performed By: #### O SMO ####[facility] Rwekoblbtg748[address] [place], [place] [address]Dr. Airam Deuce CBC AUTO DIFFon 12-16-2021 BASO # 0.0 103/ul Normal 0.0-0.1 [facility] Comment on above: Performed By: #### C BC ####[facility] Hvudgjqdgs490[address] [place], [place] [address]Dr. Selenaneil Tripathi Basophils/100 WBC (Bld) 0.6 % Normal 0.2-2.0 [facility] Comment on above: Performed By: #### C BC ####[facility] Ilcpktxaxj288[address] [place], [place] [address]Dr. Airam Tripathi EO # 0.1 103/ul Normal 0.0-0.7 [facility] Comment on above: Performed By: #### C BC ####[facility] Tthoctkfla1740 [place] [address]Dr. Airam Tripathi Eosinophils/100 WBC (Bld) 2.1 % Normal 0.9-7.0 [facility] Comment on above: Performed By: #### C BC ####[facility] Fksoafavzp778[address] [place], [place] [address]Dr. Airam Tripathi Erythrocyte distribution width (RBC) [Ratio] 13.1 % Normal 11.0-15.0 [facility] Comment on above: Performed By: #### C BC ####[facility] Zcqmbqjyzn990[address] [place], [place] [address]Dr. Airam Tripathi Hematocrit (Bld) [Volume fraction] 33.8 % Critically low 36.0-48.0 [facility] Comment on above: Performed By: #### C BC ####[facility] Elutuqvrip1969[address] [place], [place] [address]Dr. Airam Tripathi Hemoglobin (Bld) [Mass/Vol] 10.7 g/dL Critically low 12.0-16.0 [facility] Comment on above: Performed By: #### C BC ####[facility] Xsoouczqoh795[address] [place], [place] [address]Dr. Airam Tripathi IG # 0.02 10e3/ul Normal 0.00-0.03 [facility] Comment on above: Performed By: #### C BC ####[facility] Hmzymgaaur[address] [place], [place] [address]Dr. Airam Tripathi IG % 0.3 % Normal 0.0-0.5 [facility] Comment on above: Performed By: #### C BC ####[facility] Dxzzjelicl167[address] [place], [place] [address]DrKianna Airam Tripathi LYMPH # 1.2 103/ul Normal 1.2-3.8 [facility] Comment on above: Performed By: #### C BC ####[facility] Uhrqtalhpo317[address] [place], [place] [address]Dr. Airam Tripathi Lymphocytes/100 WBC (Bld) 17.3 % Critically low 20.5-60.0 [facility] Comment on above: Performed By: #### C BC ####[facility] Fexttijmqw4692 [place] [address]Dr. Airam Tripathi MANUAL DIFF REQ NO Normal [facility] Comment on above: Performed By: #### C BC ####[facility] Pvcdbxwjow1306 [place] [phone]. Airam Tripathi MCH (RBC) [Entitic mass] 30.2 pg Normal 26.7-34.0 [facility] Comment on above: Performed By: #### C BC ####[facility] Hcfhgscspx3589 [place] [address]Dr. Airam Tripathi MCHC (RBC) [Mass/Vol] 31.7 g/dL Normal 29.9-35.2 [facility] Comment on above: Performed By: #### C BC ####[facility] Gbdyukjdtt360[address] [place], [place] [address]Dr. Airam Tripathi MCV (RBC) [Entitic vol] 95.5 fL Normal 81.0-99.0 [facility] Comment on above: Performed By: #### C BC ####[facility] Isgehzzmbw656[address] [place], [place] [address]Dr. Airam Tripathi MONO # 0.5 103/ul Normal 0.3-0.8 [facility] Comment on above: Performed By: #### C BC ####[facility] Ftueazmung380[address] [place], [place] [address]Dr. Airam Tripathi Monocytes/100 WBC (Bld) 6.8 % Normal 1.7-12.0 [facility] Comment on above: Performed By: #### C BC ####[facility] Ebyczzqtql975[address] [place], [place] [address]DrKianna Tripathi NEUT # 4.9 103/ul Normal 1.4-6.5 [facility] Comment on above: Performed By: #### C BC ####[facility] Lltfsfxwzq39[address] [place], [place] [address]DrKianna Tripathi Neutrophils/100 WBC (Bld) 72.9 % Normal 43.0-75.0 [facility] Comment on above: Performed By: #### C BC ####[facility] Kenbdxbesb5424 [place] [address]Dr. Airam Tripathi Platelet mean volume (Bld) [Entitic vol] 9.0 fL Critically low 9.5-13.5 [facility] Comment on above: Performed By: #### C BC ####[facility] Mgjahwwfhz7980 [place] [address]DrKianna Tripathi PLT 297 103/ul Normal 150-450 [facility] Comment on above: Performed By: #### C BC ####[facility] Psdvasmrfu6672 [place] [address]Dr. Airam Tripathi RBC 3.54 106/ul Critically low 4.20-5.40 [facility] Comment on above: Performed By: #### C BC ####[facility] Puhegglbvz3095 [place] [address]DrKianna Tripathi WBC 6.8 103/ul Normal 4.0-11.0 [facility] Comment on above: Performed By: #### C BC ####[facility] Yoaifbjnhf8941 [place] [address]DrKianna Tripathi PROF 14(COMP METB)on 022 Albumin [Mass/Vol] 3.2 g/dL Critically low 3.4-5.0 [facility] Comment on above: Performed By: #### C MP ####[facility] Ogpomhdkpm9672 [place] [address]DrKianna Tripathi Albumin/Globulin [Mass ratio] 1.0 {ratio} Normal [facility] Comment on above: Performed By: #### C MP ####[facility] Mfpikshqhs8392 [place] [address]DrKianna Tripathi ALP [Catalytic activity/Vol] 109 U/L Normal 46-116 [facility] Comment on above: Performed By: #### C MP ####[facility] Zfttbzalth9518 [place] [phone] Tripathi ALT [Catalytic activity/Vol] 23 U/L Normal 14-59 [facility] Comment on above: Performed By: #### C MP ####[facility] Zhljlacsor8223 [place] [phone]. Airam Tripathi Anion gap [Moles/Vol] 11.6 mmol/L Normal [facility] Comment on above: Performed By: #### C MP ####[facility] Apuokkvucc6934 [place] [phone]. Airam Tripathi AST [Catalytic activity/Vol] 24 U/L Normal 15-37 [facility] Comment on above: Performed By: #### C MP ####[facility] Dhmuarbnlb8112 [place] [phone]. Airam Deuce Bilirubin [Mass/Vol] 0.2 mg/dL Normal 0.2-1.0 [facility] Comment on above: Performed By: #### C MP ####[facility] Dbuwnkfapo1130 [place] [phone]. Airam Deuce Calcium [Mass/Vol] 8.6 mg/dL Normal 8.5-10.1 [facility] Comment on above: Performed By: #### C MP ####[facility] Ftllgkxvof0660 [place] [phone]. Airam Deuce Chloride [Moles/Vol] 100 mmol/L Normal 98-107 [facility] Comment on above: Performed By: #### C MP ####[facility] Lrjplvrdiw7461 [place] [phone]. Airam Deuce CO2 [Moles/Vol] 24.7 mmol/L Normal 21.0-32.0 [facility] Comment on above: Performed By: #### C MP ####[facility] Tupoqvrsyh4019 [place] [phone]. Airam Deuce Creatinine [Mass/Vol] 1.11 mg/dL Critically high 0.55-1.02 [facility] Comment on above: Performed By: #### C MP ####[facility] [address]qv[address]pxwx[address] [place] [id number]. Airam Deuce EGFR-AF [place]ER >60 Normal >=60 [facility] Comment on above: Performed By: #### C MP ####[facility] [address]uxnar[address] [place] [address]Dr. Airam Tripathi EGFR-NON AF [place] 50 mL/min/1.73m2 Critically low >=60 [facility] Comment on above: Performed By: #### C MP ####[facility] Wof[address]qzhqil[address] [place] [address]Dr. Airam Tripathi Globulin (S) [Mass/Vol] 3.1 g/dL Normal [facility] Comment on above: Performed By: #### C MP ####[facility] G[address]ksez[address]qc[address] [place], [place] [address]Dr. Airam Tripathi Glucose [Mass/Vol] 79 mg/dL Normal 74-106 [facility] Comment on above: Performed By: #### C MP ####[facility] Frmisi[address]pe[address] [place], [place] [address]Dr. Airam Tripathi Potassium [Moles/Vol] 5.3 mmol/L Critically high 3.5-5.1 [facility] Comment on above: Performed By: #### C MP ####[facility] Waxwe[address] [place], [place] [address]Dr. Airam Tripathi Protein [Mass/Vol] 6.3 g/dL Critically low 6.4-8.2 [facility] Comment on above: Performed By: #### C MP ####[facility] Unjtrelavx[address] [place], [place] [address]Dr. Airam Tripathi Sodium [Moles/Vol] 131 mmol/L Critically low 136-145 [facility] Comment on above: Performed By: #### C MP ####[facility] Yybveqeogf[address] [place], [place] [address]Dr. Airam Tripathi Urea nitrogen [Mass/Vol] 20.0 mg/dL Critically high 7.0-18.0 [facility] Comment on above: Performed By: #### C MP ####[facility] Sorbmgsovb[address] [place], [place] [address]Dr. Airam Tripathi Urea nitrogen/Creatinine [Mass ratio] 18.0 mg/mg Normal [facility] Comment on above: Performed By: #### C MP ####[facility] [address]up[address] [place] [address]Dr. Airam Tripathi OSMOLALITYon 12-09-2021 Osmolality [Osmolality] 279 mosm/kg Normal 275-295 [facility] Comment on above: Performed By: #### O SMO ####[facility] G[address]fmsjnec[address] [place] [address]Dr. Airam Tripathi CBC AUTO DIFFon 12-07-2021 BASO # 0.0 103/ul Normal 0.0-0.1 [facility] Comment on above: Performed By: #### C BC ####[facility] Dfyiyxjfmz[address] [place], [place] [address]Dr. Airam Deuce Basophils/100 WBC (Bld) 0.5 % Normal 0.2-2.0 [facility] Comment on above: Performed By: #### C BC ####[facility] Adahgaqnyf[address] [place], [place] [address]Dr. Airam Tripathi EO # 0.4 103/ul Normal 0.0-0.7 [facility] Comment on above: Performed By: #### C BC ####[facility] [address] [place], [place] [address]Dr. Airam Tripathi Eosinophils/100 WBC (Bld) 6.3 % Normal 0.9-7.0 [facility] Comment on above: Performed By: #### C BC ####[facility] Sbmeffniim[address] [place], [place] [address]Dr. Airam Tripathi Erythrocyte distribution width (RBC) [Ratio] 13.3 % Normal 11.0-15.0 [facility] Comment on above: Performed By: #### C BC ####[facility] Ublrteipsh[address] [place], [place] [address]Dr. Airam Tripathi Hematocrit (Bld) [Volume fraction] 29.5 % Critically low 36.0-48.0 [facility] Comment on above: Performed By: #### C BC ####[facility] I[address]boxorwe[address] [place], [place] [address]Dr. Airam Tripathi Hemoglobin (Bld) [Mass/Vol] 9.1 g/dL Critically low 12.0-16.0 [facility] Comment on above: Performed By: #### C BC ####[facility] [address]msub[address] [place] [address]DrKianna Tripathi IG # 0.04 10e3/ul Critically high 0.00-0.03 [facility] Comment on above: Performed By: #### C BC ####[facility] Qtvpbgorlq[address] [place] [address]DrKianna Tripathi IG % 0.7 % Critically high 0.0-0.5 [facility] Comment on above: Performed By: #### C BC ####[facility] [address]avsvkxz[address] [place] [address]DrKianna Tripathi LYMPH # 1.3 103/ul Normal 1.2-3.8 [facility] Comment on above: Performed By: #### C BC ####[facility] [address]obd[address] [place] [address]DrKianna Tripathi Lymphocytes/100 WBC (Bld) 20.9 % Normal 20.5-60.0 [facility] Comment on above: Performed By: #### C BC ####[facility] [address]bpb[address] [place] [address]DrKianna Tripathi MANUAL DIFF REQ NO Normal [facility] Comment on above: Performed By: #### C BC ####[facility] [address]hr[address] [place] [address]DrKianna Tripathi MCH (RBC) [Entitic mass] 30.1 pg Normal 26.7-34.0 [facility] Comment on above: Performed By: #### C BC ####[facility] [address]ryut[address] [place] [id number] Tripathi MCHC (RBC) [Mass/Vol] 30.8 g/dL Normal 29.9-35.2 [facility] Comment on above: Performed By: #### C BC ####[facility] Djxhdsrmlm[address] [place] [id number] Tripathi MCV (RBC) [Entitic vol] 97.7 fL Normal 81.0-99.0 [facility] Comment on above: Performed By: #### C BC ####[facility] En[address]pjhzv[address] [place] [address]Dr. Airam Tripathi MONO # 0.4 103/ul Normal 0.3-0.8 [facility] Comment on above: Performed By: #### C BC ####[facility] T[address]zdrpnxs[address] [place] [address]Dr. Airam Tripathi Monocytes/100 WBC (Bld) 6.6 % Normal 1.7-12.0 [facility] Comment on above: Performed By: #### C BC ####[facility] Cxizomsxjr[address] [place] [address]Dr. Airam Tripathi NEUT # 4.0 103/ul Normal 1.4-6.5 [facility] Comment on above: Performed By: #### C BC ####[facility] Awztgkbifn[address] [place], [place] [address]Dr. Airam Tripathi Neutrophils/100 WBC (Bld) 65.0 % Normal 43.0-75.0 [facility] Comment on above: Performed By: #### C BC ####[facility] E[address]up[address] [place] [address]Dr. Airam Tripathi Platelet mean volume (Bld) [Entitic vol] 9.4 fL Critically low 9.5-13.5 [facility] Comment on above: Performed By: #### C BC ####[facility] Fiwlxsywbm[address] [place] [address]Dr. Airam Tripathi PLT 224 103/ul Normal 150-450 [facility] Comment on above: Performed By: #### C BC ####[facility] Y[address]iqnrtct[address] [place] [id number]. Airam Tripathi RBC 3.02 106/ul Critically low 4.20-5.40 [facility] Comment on above: Performed By: #### C BC ####[facility] F[address]ttzdoaig[address] [place] [address]Dr. Airam Tripathi WBC 6.1 103/ul Normal 4.0-11.0 [facility] Comment on above: Performed By: #### C BC ####[facility] Dy[address]ngyavq[address] [place] [address]Dr. Airam Tripathi PROF 14(COMP METB)on 022 Albumin [Mass/Vol] 2.8 g/dL Critically low 3.4-5.0 [facility] Comment on above: Performed By: #### C MP ####[facility] J[address]zssoeif[address] [place] [address]Dr. Airam Tripathi Albumin/Globulin [Mass ratio] 1.1 {ratio} Normal [facility] Comment on above: Performed By: #### C MP ####[facility] Iicpewmxyd[address] [place], [place] [address]Dr. Airam Tripathi ALP [Catalytic activity/Vol] 116 U/L Normal 46-116 [facility] Comment on above: Performed By: #### C MP ####[facility] Nvgakaxwcx[address] [place], [place] [address]Dr. Airam Tripathi ALT [Catalytic activity/Vol] 23 U/L Normal 14-59 [facility] Comment on above: Performed By: #### C MP ####[facility] Atxpxnocyy[address] [place], [place] [address]Dr. Airam Tripathi Anion gap [Moles/Vol] 12.1 mmol/L Normal [facility] Comment on above: Performed By: #### C MP ####[facility] Opefqglyxi[address] [place], [place] [address]Dr. Airam Tripathi AST [Catalytic activity/Vol] 23 U/L Normal 15-37 [facility] Comment on above: Performed By: #### C MP ####[facility] [address]xyjql[address] [place], [place] [address]Dr. Airam Tripathi Bilirubin [Mass/Vol] 0.2 mg/dL Normal 0.2-1.0 [facility] Comment on above: Performed By: #### C MP ####[facility] Agdcylsqga[address] [place], [place] [address]Dr. Airam Tripathi Calcium [Mass/Vol] 8.1 mg/dL Critically low 8.5-10.1 [facility] Comment on above: Performed By: #### C MP ####[facility] N[address]aryeznn[address] [place] [address]Dr. Airam Tripathi Chloride [Moles/Vol] 105 mmol/L Normal 98-107 [facility] Comment on above: Performed By: #### C MP ####[facility] Ebtgxhgtvd1051 [place] [id number]. Airam Tripathi CO2 [Moles/Vol] 22.1 mmol/L Normal 21.0-32.0 [facility] Comment on above: Performed By: #### C MP ####[facility] V[address]vyinevck[address] [place] [address]Dr. Airam Tripathi Creatinine [Mass/Vol] 1.06 mg/dL Critically high 0.55-1.02 [facility] Comment on above: Performed By: #### C MP ####[facility] Bctwepxusq[address] [place], [place] [address]Dr. Airam Deuce EGFR-AF [place] >60 Normal >=60 [facility] Comment on above: Performed By: #### C MP ####[facility] Efvrusqakk[address] [place], [place] [address]Dr. Airam Deuce EGFR-NON AF [place] 53 mL/min/1.73m2 Critically low >=60 [facility] Comment on above: Performed By: #### C MP ####[facility] F[address]zcorjbvz[address] [place] [address]Dr. Airam Deuce Globulin (S) [Mass/Vol] 2.6 g/dL Normal [facility] Comment on above: Performed By: #### C MP ####[facility] M[address]wcevknf[address] [place] [address]Dr. Airam Deuce Glucose [Mass/Vol] 109 mg/dL Critically high 74-106 [facility] Comment on above: Performed By: #### C MP ####[facility] Izybgflgel[address] [place] [address]Dr. Airam Tripathi Potassium [Moles/Vol] 4.2 mmol/L Normal 3.5-5.1 [facility] Comment on above: Performed By: #### C MP ####[facility] B[address]wqumish[address] [place] [id number]. Airam Tripathi Protein [Mass/Vol] 5.4 g/dL Critically low 6.4-8.2 [facility] Comment on above: Performed By: #### C MP ####[facility] X[address]sejkuvd50[address] [place] [id number]. Airam Tripathi Sodium [Moles/Vol] 135 mmol/L Critically low 136-145 [facility] Comment on above: Performed By: #### C MP ####[facility] Ftforbtosd[address] [place] [id number]. Airam Tripathi Urea nitrogen [Mass/Vol] 15.0 mg/dL Normal 7.0-18.0 [facility] Comment on above: Performed By: #### C MP ####[facility] Yseqaiftgh[address] [place] [address]Dr. Airam Tripathi Urea nitrogen/Creatinine [Mass ratio] 14.2 mg/mg Normal [facility] Comment on above: Performed By: #### C MP ####[facility] Cjyvkumsgn4[address] [place] [id number]. Airam Tripathi Operative Reporton Operative Report MR#: [id number] [facility] Pt. Name: Mabel Moser Room #: [...] subscapularis. 3. Right shoulder proximal biceps tenotomy. BRIDGE TOLL COLLECTOR: Alex Serra M.D. ANESTHESIA: General. INDICATIONS: The [...] Reza M.D. Date Trans: 08/19/2021 11:37 A/carter [id number] cc: Yuri Santana M.D. [address] [facility] [phone] Normal [facility] POC GLUCOSE LABon 08-19-2021 Glucose [Mass/Vol] 77 mg/dL Normal 70-100 [facility] Comment on above: Performed By: #### 8 [id number] #### [facility] [address] 04-05-2021 CNPN Telephone (ANDREW) -- MABEL MOSER ([id number]) 1960 F Date Time Provider Department 04/05/21 YEVGENIY FORD During your visit today, we recorded the following information about you: Chana Gallegos [facility] 04/05/2021 7:57 AM Signed Records faxed to the cancer center at [facility]. Patient to follow with Dr. Liu. [...] Encounter Status:Closed by CHANA LEE on 04/05/21 [facility] OBSOLETEon 01-11-2021 OBSOLETE Refill (HEMASA) -- MABEL MOSER ([id number]) 1960 F Date Time Provider Department 01/11/21 [...] disease) stage 3, GFR 30-59 ml/min ([facility]) [N18.30] Order(s):cyanocobalamin 1,000 mcg/mLINJECT 1 ML INTRAMUSCULARLY [...] CAPSULE ONCE A DAY ORALLY (S)( TO ) - fentaNYL (DURAGESIC) 50 mcg/hr 1 Patch [...] Status:Closed by YEVGENIY FORD on 01/12/21 Normal [facility] Vital Signs Date Time Vital Sign Value Performing Clinician Facility 03-26-2024 11:47-0400 Body mass index (BMI) [Ratio] 41.1 kg/m2 [facility] 03-26-2024 11:47-0400 Diastolic blood pressure 77 mm[Hg] [facility] 03-26-2024 11:47-0400 Heart rate 81 /min [facility] 03-26-2024 11:47-0400 Respiratory rate 18 /min [facility] 03-26-2024 11:47-0400 SaO2% (BldA) [Mass fraction] 92 % [facility] 03-26-2024 11:47-0400 Systolic blood pressure 140 mm[Hg] [facility] 03-26-2024 08:52-0400 Body height 157.48 cm [facility] 03-26-2024 08:52-0400 Body temperature 98.1 [degF] [facility] 03-26-2024 08:52-0400 Body weight 102.05 kg [facility] 03-05-2024 13:52-0400 Blood Pressure Location Migel AHUMADAL [facility] 03-05-2024 13:52-0400 Diastolic blood pressure 80 mm[Hg] Migel AHUMADAL [facility] 03-05-2024 13:52-0400 Heart rate 77 /min Migel AHUMADAL [facility] 03-05-2024 13:52-0400 Respiratory rate 16 /min Migel AHUMADAL [facility] 03-05-2024 13:52-0400 Systolic blood pressure 116 mm[Hg] Migel AHUMADAL [facility] 07-03-2023 12:00-0500 Body temperature 97.9 [degF] MD Yuri Santana Work Phone: [facility] 07-03-2023 12:00-0500 Diastolic blood pressure 71 mm[Hg] MD Yuri Santana Work Phone: [facility] 07-03-2023 12:00-0500 Heart rate 68 /min MD Yuri Santana Work Phone: [facility] 07-03-2023 12:00-0500 Respiratory rate 16 /min MD Yuri Santana Work Phone: [facility] 07-03-2023 12:00-0500 SaO2% (BldA) [Mass fraction] 100 % MD Yuri Santana Work Phone: [facility] 07-03-2023 12:00-0500 Systolic blood pressure 121 mm[Hg] MD Yuri Santana Work Phone: [facility] 07-03-2023 04:49-0500 Body weight 85.8 kg MD Yuri Santana Work Phone: [facility] 06-30-2023 14:44-0500 Body height 157.48 cm MD Yuri Santana Work Phone: [facility] 04-04-2023 16:20-0400 Body height 158.75 cm Raeann [employer] Other [employer] Other 04-04-2023 16:20-0400 Body mass index (BMI) [Ratio] 31.46 kg/m2 Raeann [employer] Other [employer] Other 04-04-2023 16:20-0400 Body temperature 98 [degF] Raeann [employer] Other [employer] Other 04-04-2023 16:20-0400 Body weight 79.29 kg Raeann [employer] Other [employer] Other 04-04-2023 16:20-0400 Diastolic blood pressure 81 mm[Hg] Azariel [employer] Other [employer] Other 04-04-2023 16:20-0400 Respiratory rate 18 /min Raeann Kirkpatrick Other [facility] [employer] Other 04-04-2023 16:20-0400 SaO2% (BldA) [Mass fraction] 98 % Raeann Kirkpatrick Other [facility] [employer] Other 04-04-2023 16:20-0400 Systolic blood pressure 133 mm[Hg] Raeann Kirkpatrick Other [facility] [employer] Other 10-28-2022 22:23-0400 Body temperature 97.4 [degF] MD Yuri Santana Work Phone: [facility] 10-28-2022 22:00-0400 Diastolic blood pressure 74 mm[Hg] MD Yuri Santana Work Phone: [facility] 10-28-2022 22:00-0400 Heart rate 72 /min MD Yuri Santana Work Phone: [facility] 10-28-2022 22:00-0400 Respiratory rate 20 /min MD Yuri Santana Work Phone: [facility] 10-28-2022 22:00-0400 SaO2% (BldA) [Mass fraction] 97 % MD Yuri Santana Work Phone: [facility] 10-28-2022 22:00-0400 Systolic blood pressure 169 mm[Hg] MD Yuri Santana Work Phone: [facility] 10-28-2022 17:54-0400 Body height 157.48 cm MD Yuri Santana Work Phone: [facility] 10-28-2022 17:54-0400 Body weight 83.7 kg MD Yuri Santana Work Phone: [facility] 09-27-2022 12:00-0400 Body height 158.75 cm Raeann Kirkpatrick Other [employer] Other 09-27-2022 12:00-0400 Body mass index (BMI) [Ratio] 31.78 kg/m2 Raeann Mishras Other [employer] Other 09-27-2022 12:00-0400 Body temperature 96.1 [degF] Raeann Mishras Other [employer] Other 09-27-2022 12:00-0400 Body weight 80.11 kg Raeann Mishras Other [employer] Other 09-27-2022 12:00-0400 Diastolic blood pressure 82 mm[Hg] Raeann Mishras Other [employer] Other 09-27-2022 12:00-0400 Respiratory rate 18 /min Raeann Mishras Other [employer] Other 09-27-2022 12:00-0400 SaO2% (BldA) [Mass fraction] 99 % Raeann Mishras Other [employer] Other 09-27-2022 12:00-0400 Systolic blood pressure 140 mm[Hg] Raeann Mishras Other [employer] Other 04-12-2022 14:00-0400 Body height 158.75 cm Raeann Mishras Other [employer] Other 04-12-2022 14:00-0400 Body mass index (BMI) [Ratio] 30.13 kg/m2 Raeann Mishras Other [employer] Other 04-12-2022 14:00-0400 Body temperature 97.6 [degF] Raeann Kirkpatrick Other [employer] Other 04-12-2022 14:00-0400 Body weight 75.93 kg Raeann Kirkpatrick Other [employer] Other 04-12-2022 14:00-0400 Diastolic blood pressure 95 mm[Hg] Raeann Kirkpatrick Other [employer] Other 04-12-2022 14:00-0400 Respiratory rate 18 /min Raeann Kirkpatrick Other [employer] Other 04-12-2022 14:00-0400 SaO2% (BldA) [Mass fraction] 98 % Raeann Kirkpatrick Other [employer] Other 04-12-2022 14:00-0400 Systolic blood pressure 175 mm[Hg] Raeann Kirkpatrick Other [employer] Other 06-16-2021 16:20-0500 Body height 158.75 cm Los Grissom Other [employer] Other 06-16-2021 16:20-0500 Body mass index (BMI) [Ratio] 30.88 kg/m2 [facility] Other [employer] Other 06-16-2021 16:20-0500 Body temperature 96.4 [degF] Los Praveena Other [employer] Other 06-16-2021 16:20-0500 Body weight 77.84 kg Los Rascongerald Other [employer] Other 06-16-2021 16:20-0500 Diastolic blood pressure 88 mm[Hg] [place] Other [employer] Other 06-16-2021 16:20-0500 Respiratory rate 18 /min [place] Other [employer] Other 06-16-2021 16:20-0500 SaO2% (BldA) [Mass fraction] 99 % [place] Other [employer] Other 06-16-2021 16:20-0500 Systolic blood pressure 137 mm[Hg] [place] Other [employer] Other Encounters Encounter Date Encounter Type Care Provider Facility Start: 09-09-2024 End: 09-09-2024 ambulatory [facility] Start: 09-09-2024 End: 09-09-2024 ambulatory [facility] Start: 08-08-2024 End: 08-08-2024 [facility] Start: 05-31-2024 ambulatory [facility] Start: 04-29-2024 ambulatory [facility] Start: 04-17-2024 ambulatory [facility] Start: 03-27-2024 End: 03-27-2024 ambulatory [facility] Start: 03-26-2024 End: 03-26-2024 ambulatory [facility] Work Phone: Start: 03-26-2024 End: 03-26-2024 Patient encounter procedure [facility] Nephrology Eloy Work Phone: Start: 03-05-2024 End: 03-05-2024 ambulatory Migel MCKINNEY Facility:[facility] Start: 03-05-2024 End: 03-05-2024 Patient encounter procedure Migel MCKINNEY [facility] Sophie Start: 01-22-2024 End: 01-30-2024 [facility]: 12-21-2023 End: 12-21-2023 ambulatory [facility] Start: 10-13-2023 ambulatory YURI Covington Kristen [facility] Start: 09-30-2023 End: 10-01-2023 [facility]: 07-11-[facility]23 End: 07-11-2023 ambulatory Aziz Bakkendalls Other [employer] Other Start: 07-11-2023 Telephone encounter Azariel Mishras [facility] Start: 06-29-2023 End: 07-03-2023 Evaluation and management of inpatient Jim Randhawa Facility:[facility] Start: 06-29-2023 End: 07-03-2023 Evaluation and management of inpatient MD Yuri Santana Work Phone: [facility] Work Phone: Start: 04-04-2023 End: 04-04-2023 ambulatory Aziz Bakkendalls Other [employer] Other Start: 04-04-2023 Office outpatient visit 25 minutes Aziz Bakhous [facility] Start: 04-03-2023 End: 04-03-2023 ambulatory Aziz Bakhous Other [employer] Other Start: 04-03-2023 Telephone encounter Aziz Bakhous [facility] Start: 12-12-2022 End: 12-12-2022 ambulatory Aziz Bakhous Other [employer] Other Start: 12-12-2022 Telephone encounter Raeann Kirkpatrick [facility] Start: 12-08-2022 End: 12-08-2022 ambulatory Raeann Kirkpatrick Other [employer] Other Start: 12-08-2022 Telephone encounter Raeann Kirkpatrick [facility] Start: 11-22-2022 End: 11-22-[address] YURI SANTANA . Facility:[facility] Start: 11-22-2022 End: 11-22-2022 ambulatory NARENDRANBARBI MURILLOSHMIPATHY . Facility:[facility] Start: 11-16-2022 End: 11-16-[address] YURI SANTANA . Facility:[facility] Start: 11-04-2022 End: 11-05-2022 ambulatory SADIE PHOENIXMIPATHKristen . Facility:[facility] Start: 11-03-2022 End: 11-03-[address] YURI SANTANA . Facility:[facility] Start: 10-31-2022 ambulatory SANTOS ROUSSEAU . Facili ty:[facility] Start: 10-28-2022 End: 10-29-2022 Emergency department patient visit Favian Helm Facility:[facility] Start: 10-28-2022 End: 10-28-2022 Emergency department patient visit MD Yuri Santana Work Phone: [facility] Work Phone: Start: 10-27-2022 End: 10-28-2022 ambulatory SADIE PHOENIXMIPATHKristen . Facility:[facility] Start: 10-25-2022 End: 10-26-2022 Evaluation and management of inpatient DR YURI SANTANA . Facility:[facility] Start: 10-19-2022 End: 10-19-[address] YURI SANTANA . Facility:[facility] Start: 10-12-2022 End: 10-13-[address] YURI SANTANA . Facility:[facility] Start: 10-12-2022 End: 10-12-2022 ambulatory FELECIA MILIAN . Facility:[facility] Start: 10-11-2022 End: 10-11-2022 ambulatory NARENDRANATH LAKSHMIPATHY . Facility:[facility] Start: 10-05-2022 End: 10-07-[address] YURI SANTANA . Facility:[facility] Start: 10-05-2022 ambulatory FELECIA GOLDENTisha . Facility: [facility] Start: 09-29-2022 End: 10-04-[address] YURI SANTANA . Facility:[facility] Start: 09-27-2022 End: 09-27-2022 ambulatory Raeann Kirkpatrick Other [employer] Other Start: 09-27-2022 Office outpatient visit 25 [...] 08-23-2022 End: 08-23-2022 ambulatory Sue Leiva Other [employer] Other Start: 08-23-2022 Office outpatient ne w 30 minutes Sue Leiva [facility] Start: 08-16-2022 End: 08-17-[address] [...] 04-12-2022 End: 04-12-2022 ambulatory Raeann Kirkpatrick Other [employer] Other Start: 04-12-2022 Office outpatient visit 25 minutes Raeann Kirkpatrick [facility] Nephrology [place] Start: 04-06-[address] YURI [...] Start: 01-10-2022 End: 01-11-2022 ambulatory Robert Johnston Facility:[facility] Start: 01-06-2022 End: 01-07-[address] YURI SANTANA . Facility:[facility] Start: 12-30-2021 End: 01-19-[address] YURI SANTANA . Facility:[facility] Start: 12-23-2021 End: 12-24-2021 ambulatory NNAMDI VELIZIS . Facility: Start: 12-07-2021 End: 12-22-[address] YURI SANTANA . Facility: Start: 12-07-2021 End: 12-07-[address] YURI SANTANA . Facility: Start: 08-19-2021 End: 08-20-2021 ambulatory CARLOS REZA Facility:[facility] Start: 06-16-2021 End: 06-16-2021 ambulatory [place] Other [employer] Other Start: 06-16-2021 Office outpatient visit 25 minutes [place] Grissom [facility] Nephrology Start: 01-14-2019 End: 01-14-2019 Patient encounter procedure [facility] Start: 12-03-2018 End: 12-03-2018 Patient encounter procedure [facility] Procedures Date Procedure Procedure Detail Performing Clinician Start: 10-28-2022 CT of head without contrast MD Yuri Santana Work Phone: Start: 10-28-2022 Plain chest X-ray MD Romero Work Phone: Start: 09-24-2022 Insertion of implant able venous access port Migel MCKINNEY Start: 01-14-2019 DISCHARGE PATIENT NIRMAL Start: 01-14-2019 DIET NPO, NOW NIRMAL HURD G Start: 01-14-2019 FULL CODE NIRMAL Start: 01-14-2019 INITIATE OXYGEN THER APY PROTOCOL Start: 01-14-2019 NOTIFY PHYSICIAN (SPECIFY) Start: 01-14-2019 NURSING COMMUNICATION W DONNA Start: 01-14-2019 VERIFY INFORMED CONSENT Start: 01-14-2019 VITAL SIGNS NIRMAL Start: 12-03-2018 DISCHARGE PATIENT NIRMAL Start: 12-03-2018 DIET NPO, NOW NIRMAL VICKEY G Start: 12-03-2018 FULL CODE NIRMAL Start: 12-03-2018 INITIATE OXYGEN THER APY PROTOCOL Start: 12-03-2018 NOTIFY PHYSICIAN (SPECIFY) NIRMAL Start: 12-03-2018 NURSING COMMUNICATION W DONNA Start: 12-03-2018 VERIFY INFORMED CONSENT NIRMAL LEWIS Start: 12-03-2018 VITAL SIGNS NIRMAL LEWIS Start: 06-26-2016 Insertion of implant able venous access port Migel AHUMADAL Start: 06-26-1999 [id number] - action ( qualifier value) Migel NILL Arthroplasty of knee Migel NILL Cardiac catheterization Jorge aetad NILL Cervical arthrodesis Migel NILL Cervical laminectomy Migel NILL Cholecystectomy Migel NILL Removal of implantab le venous access port Migel NILL Repair of musculoten dinous cuff of shoulder Migel NILL Plan of Treatment Date Care Activity Detail Author Start: 07-03-2023 [facility] Start: 06-29-2023 Hospital admission [facility] Start: 06-29-2023 Referral to tap dancer [facility] Blood chemistry [facility] Patient Education [facility] Work Phone: Patient referral [facility] Work Phone: Renal function 2000 panel - Serum or Plasma [facility] Immunizations Immunization Date Immunization Notes Care Provider Fa radha 03-11-2023 influenza virus vaccine, unspecified formulation Migel AHUMADAL [facility] 04-07-2022 SARS-CoV-2 (COVID-19 ) [id number] Migel AHUMADAL [facility] 09-24-2020 SARS-CoV-2 (COVID-19 ) mRNA-1273 vaccine Migel AHUMADAL [facility] Comment on above: Result Comment: 2023: [id number] 08-27-2020 SARS-CoV-2 (COVID-19 ) mRNA-1273 vaccine Migel MCKINNEY [facility] 05-18-2011 pneumococcal conjuga te vaccine, 13 valent Migel MCKINNEY [facility] NEGATED: Highlighted row has not occurred!09-16-2020 influenza virus vaccine, unspecified formulation Migel MCKINNEY [facility] Payers Date Payer Category Payer Medicare [id number] 2022 Self-pay [id number] 2017 Medicare [id number] 2017 Unknown [id number] 1960 Unknown [id number] 2.16.8 40.1.671547.3.579.2.173 1962 Unknown [id number] 2.16.8 40.1.851342.3.579.2.173 1962 Unknown [id number] 2.16.8 40.1.410872.3.579.2.647 1962 Unknown [id number] 2.16.8 40.1.414155.3.579.2.647 1962 Unknown [id number] 2.16.84 0.1.515263.3.579.2.593 1962 Unknown [id number] 2.16.84 0.1.697540.3.579.2.593 1962 Unknown [id number] 2.16.84 0.1.061058.3.579.2.593 1962 Unknown [id number] 2.16.84 0.1.656881.3.579.2.593 1962 Unknown [id number] 2.16.84 0.1.742136.3.579.2.593 1962 Unknown [id number] 2.16.84 0.1.278721.3.579.2.593 1962 Unknown [id number] 2.16.84 0.1.828002.3.579.2.593 1962 Unknown [id number] 2.16.84 0.1.769804.3.579.2.593 1962 Unknown [id number] 2.16.84 0.1.031186.3.579.2.593 1962 Unknown [id number] 2.16.84 0.1.085281.3.579.2.593 1962 Unknown [id number] 2.16.84 0.1.373738.3.579.2.593 1962 Unknown [id number] 2.16.84 0.1.749602.3.579.2.593 1962 Unknown [id number] 2.16.84 0.1.066382.3.579.2.593 1962 Unknown [id number] 2.16.84 0.1.742724.3.579.2.593 1962 Unknown [id number] 2.16.84 0.1.918398.3.579.2.593 1962 Unknown [id number] 2.16.84 0.1.505854.3.579.2.593 1962 Unknown [id number] 2.16.84 0.1.999803.3.579.2.593 1962 Unknown [id number] 2.16.84 0.1.693247.3.579.2.593 1962 Unknown [id number] 2.16.84 0.1.773244.3.579.2.593 1962 Unknown [id number] 2.16.84 0.1.712167.3.579.2.593 1962 Unknown [id number] 2.16.84 0.1.802672.3.579.2.593 1962 Unknown [id number] 2.16.84 0.1.273692.3.579.2.593 1962 Unknown [id number] 2.16.84 0.1.025843.3.579.2.593 1962 Unknown [id number] 2.16.84 0.1.043326.3.579.2.593 1962 Unknown [id number] 2.16.84 0.1.496399.3.579.2.593 1962 Unknown [id number] 2.16.84 0.1.562474.3.579.2.593 1962 Unknown [id number] 2.16.84 0.1.883377.3.579.2.593 1962 Unknown [id number] 2.16.84 0.1.336830.3.579.2.593 1962 Unknown [id number] 2.16.84 0.1.514262.3.579.2.593 1962 Unknown [id number] 2.16.84 0.1.555344.3.579.2.593 1962 Unknown [id number] 2.16.84 0.1.535019.3.579.2.593 1962 Unknown [id number] 2.16.84 0.1.478934.3.579.2.593 1962 Unknown [id number] 2.16.84 0.1.690815.3.579.2.593 1962 Unknown [id number] 2.16.84 0.1.716562.3.579.2.593 1962 Unknown [id number] 2.16.84 0.1.167708.3.579.2.593 1962 Unknown [id number] 2.16.84 0.1.108369.3.579.2.593 1962 Unknown [id number] 2.16.84 0.1.875239.3.579.2.593 1962 Unknown [id number] 2.16.84 0.1.919766.3.579.2.593 1962 Unknown [id number] 2.16.84 0.1.303888.3.579.2.593 1962 Unknown [id number] 2.16.84 0.1.094278.3.579.2.593 1962 Unknown [id number] 2.16.84 0.1.101923.3.579.2.593 1962 Unknown [id number] 2.16.84 0.1.367360.3.579.2.593 1962 Unknown [id number] 2.16.84 0.1.837275.3.579.2.593 1962 Unknown [id number] 2.16.84 0.1.694142.3.579.2.593 1962 Unknown [id number] 2.16.84 0.1.429645.3.579.2.593 1962 Unknown [id number] 2.16.84 0.1.671494.3.579.2.593 1962 Unknown [id number] 2.16.8 40.1.643295.3.579.2.1286 1962 Unknown [id number] 2.16.8 40.1.787171.3.579.2.727 1962 Unknown [id number] 2.16. 840.1.053279.3.579.2.175 1962 Unknown [id number] 2.16. 840.1.689115.3.579.2.175 1962 Unknown [id number] 2.16.8 40.1.972436.3.579.2.1286 1962 Unknown [id number] 2.16.8 40.1.391474.3.579.2.1286 1962 Unknown [id number] 2.16.8 40.1.198822.3.579.2.1286 1962 Unknown [id number] 2.16.8 40.1.224479.3.579.2.1286 1959 Medicaid [id number] Unknown [id number] 2.1 6.840.1.063116.19 Unknown Aron BC/HILARIA [id number] Unknown [id number] 2.16.8 40.1.161586.3.579.2.531 Unknown [id number] 2.16.8 40.1.107504.3.579.2.531 Social History Date Type Detail Facility Unknown if ever smoked [facility] Start: 10-28-2022 End: 03-26-2024 Tobacco smoking status NHIS Never smoked tobacco (finding) [facility] Start: 1960 Sex Assigned At Female F [facility] Tobacco smoking status Never [facility] Goals Date Patient Goal Desired Activity /State Functional Status Date Assessment Result Facility 03-05-2024 Functional Status N/A [facility] Sophie 07-03-2023 Functional status Patient at Baseline [facility] Work Phone: Mental Status Date Assessment Result Facility 07-03-2023 Cognitive function Cognitive Sta tus Patient at Baseline [facility] Work Phone: Clinical Notes 06-16-2021 to 09-09-2024 Note Date & Type Note Facility 09-09-2024 Note Orthopedic Surgery Visit Description: New patient Subjective Chief complaint: Chronic left shoulder pain 09/09/24 Mabel Hellerlorenrobert is a 64 y.o. year old female presenting as new patient to me for chronic left shoulder pain. About 1 year ago the patient fell and suffered not only broken neck but pain to the left shoulder. Since that time, she has had loss of function and pain to the left shoulder. She saw an outside physician who perform images and diagnosed her with rotator cuff arthropathy and recommended a reverse total shoulder arthroplasty. However, he was unable to perform the surgery close enough to her home and that she was referred here for consideration of intervention. Over the past year, she has had significant loss of function of the left shoulder and daily pain. She would like to have this treated surgically if possible. She endorses significant weakness to the left upper extremity but denies numbness or tingling. Past medical history: CHF, CKD (not on dialysis. Has 1 functioning kidney and 1 atrophied kidney), gastric bypass, anemia Non-smoker, nondiabetic Previous treatments: Physical therapy which did not provide any relief History Past Surgical History: Procedure Laterality Date APPENDECTOMY CARDIAC CATHETERIZATION CHOLECYSTECTOMY GASTRIC BYPASS HERNIA REPAIR HYSTERECTOMY JOINT REPLACEMENT TOTAL KNEE ARTHROPLASTY Right Past Medical History: Diagnosis Date Anxiety Arthritis Asthma CHF (congestive heart failure) ([facility]) Coronary artery disease Depression Gastroenteritis Heart valve disease Hypertension Kidney failure Lumbar spondylolysis Stroke ([facility]) Objective General: BMI 41.34 General: No acute distress, comfortable Respiratory: Unlabored breathing with normal rate, no cough Cardiovascular: Warm and well perfused extremities Psych: Appropriate mood and behavior. Alert and oriented to person, place, time, and event Left shoulder: -Inspection: Overlying skin does not show any significant erythema, edema, ecchymosis. No open skin lesions -Active forward flexion and lateral abduction are significantly limited and are only about 20 degrees. Active internal and external rotation are intact with 4/5 strength -Deltoid function intact -Sensation is intact to light touch to median, ulnar, radial, axillary nerve distributions -Hand and digits are well-perfused Imaging personally reviewed: X-rays of the left shoulder done today 09/09/2024 were reviewed. X-rays show a significantly high riding humeral head. However, there is lack of any significant glenohumeral arthritis. Outside MRI was reviewed today that was brought in by the patient via a disk. MRI shows severe rotator cuff tear with retraction but overall quality of MRI is poor and it is difficult to fully characterize the tear Assessment/Plan Mabel Moser is a 64 y.o. year old female with left rotator cuff arthropathy without significant arthritic changes yet I explained to the patient the nature and prognosis of the condition. We also discussed in details the different management options including non-surgical and surgical management option, and the benefits and potential risks of the different treatments options -We will repeat MRI of the L shoulder as her current MRI is of poor quality and it is difficult to fully characterize the tear and if there is significant fatty atrophy that would help guide surgical decision. The patient will require surgery but we are trying to determine whether a rotator cuff repair or reverse total shoulder arthroplasty is the best option for her Return to Clinic once MRI is completed for further discussion of which surgery is most appropriate The patient understands and agrees to the management plan, and all patient questions have been answered to her satisfaction. Pepito Almeida MD Orthopedic Surgery, PGY-5 [facility] Pager: [phone] 09/09/24 This note was created with the assistance of a speech-recognition program. While intending to generate a document that accurately reflects the content of the encounter, no guarantee can be provided that every mistake has been identified and corrected by editing. By using the attestations below, the signing clinician agrees that I have read and verify that the documentation has been personally reviewed by me and ensure that the documentation accurately reflects the encounter. Office Visit Attestation GC: I personally saw this patient on the day of the encounter, performed the chamberlain portion(s) of the service and participated in the management and confirm the resident's documentation. Please note there may be an additional personal documentation from me. [facility] 03-27-2024 Note [place] Cardiology - [facility] Subjective Mabel Moser is a 64 y.o. year old female patient being seen for 3 mo follow up HFpEF, hypertension, and mild pulmonary hypertension. She was admitted last month to [facility] for CHF and fluid overload. She was [...] Bilateral hearing loss Chronic obstructive pulmonary disease ([facility]) CKD (chronic kidney disease) stage 3, GFR 30-59 ml/min ([facility]) Closed fracture of trochanter of femur ([facility]) Clostridium difficile colitis Coronary arteriosclerosis Diffuse thyroid 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 thyrotoxicosis Fluid overload Dehydration Cortical age-related cataract of left eye COVID-19 Displacement of lumbar intervertebral disc without myelopathy Edema of lower extremity Edema Orthopnea Dyspnea Endogenous obesity Essential tremor ACC/AHA stage C heart failure with preserved ejection fraction ([facility]) H/O gastric bypass Gouty arthropathy Gastroesophageal reflux disease Full thickness rotator cuff tear Fibromyalgia Low back pain Hip pain Hyperparathyroidism due to renal insufficiency ([facility]) Hypocalcemia Hypertensive disorder Hypoglycemia Hyponatremia Hypothyroidism Impingement syndrome of shoulder region Insomnia Anemia due to vitamin B12 deficiency Pulmonary hypertension ([facility]) Other fatigue Osteoarthritis of knee Morbid (severe) obesity due to excess calories ([facility]) Left atrial enlargement Lumbosacral neuritis Lumbosacral spondylosis without myelopathy Intractable migraine without status migrainosus Migraine Rheumatic tricuspid valve regurgitation Vitamin D deficiency Tympanic membrane perforation, right Transient ischemic attack Thoracic neuritis Tear of right rotator cuff Swallowing problem Sunburn of second degree Status post tympanoplasty Sprain of shoulder Seizure disorder ([facility]) Polyneuropathy associated with critical illness ([facility]) Polyneuropathy Osteoarthritis of spine with radiculopathy, lumbar region Obesity (BMI 30.0-34.9) Lumbar paraspinal muscle spasm Lateral femoral cutaneous neuropathy, left Internal derangement of right shoulder History of total right knee replacement Hemiparesis, left ([facility]) Hemiparesis due to old stroke ([facility]) Difficulty walking Depression Constipation Abnormal blood chemistry 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 ([facility]) Pre-operative cardiovascular examination Acute on chronic systolic CHF (congestive heart failure) ([facility]) History of CVA in adulthood Hyperkalemia Hypomagnesemia Metabolic acidosis LEEANN (acute kidney injury) ([facility]) Cardiorenal disease Acute heart failure ([facility]) Polypharmacy Cerebral artery occlusion with cerebral infarction ([facility]) Chronic CHF (congestive heart failure) ([facility]) Fall at home, initial encounter Irritable bowel syndrome Restless leg syndrome Traumatic closed fracture of C2 vertebra with minimal displacement, initial encounter (CMS/HCC) Cervical stenosis of spine Compression fracture of [...] past she was admitted to [facility] in 2019 with fluid overload and responded [...] severely elevated r (more content not included)... [facility] 03-05-2024 Note General Surgery Offi ce/Clinic Note [...] tab(s), Oral, BID butorphanol 10 mg/mL Nasal [place], 1 spray(s), Nasal, Daily, PRN cyanocobalamin 1000 [...] BID Fioricet or (more content not included)... [facility] Comment on above: Result Comment: Elec tronically Signed By: FAYE ASCENCIO, Migel Cruz\Date and Time Signed: 03/05/24 14:27 EDT 12-21-2023 Note [place] Cardiology - [facility] Subjective Mabel Moser is a 63 y.o. [...] kidney disease) stage 3, GFR 30-59 ml/min ([facility]/H[facility]) Closed fracture of trochanter of femur (CMS/HCC) Clostridium difficile colitis Coronary arteriosclerosis Diffuse thyroid 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 thyrotoxicosis Fluid overload Dehydration Cortical age-related cataract of left eye COVID-19 Displacement of lumbar intervertebral disc without myelopathy Edema of lower extremity Edema Orthopnea Dyspnea Endogenous obesity Essential tremor ACC/AHA stage C heart failure with preserved ejection fraction ([facility]/HCC) H/O gastric bypass Gouty arthropathy Gastroesophageal reflux [...] on chronic systolic CHF (congestive heart failure) ([facility]/H[facility]) History of CVA in adulthood Hyperkalemia Hypomagnesemia Metabolic acidosis LEEANN (acute kidney injury) ([facility]/HCC) Cardiorenal disease Acute heart failure ([facility]/HCC) Polypharmacy Cerebral artery occlusion with cerebral infarction ([facility]/HCC) Chronic CHF (congestive heart failure) ([facility]) Fall at home, initial encounter Irritable bowel syndrome Restless leg syndrome Traumatic closed fracture of C2 vertebra with minimal displacement, initial encounter ([facility]) Family History Family history unknown: Yes Social History Tobacco Use Smoking status: Never Smokeless tobacco: Never Substance Use Topics Alcohol use: Not Currently Drug use: Not Currently HPI Mabel is seen in follow-up. She is a 63-year-old woman with prior history of obesity status post bariatric surgery in 1999. In the past she was admitted to [facility] in 2019 with fluid overload and responded [...] recommended to t (more content not included)... [facility] 07-03-2023 Progress note Note Date/Time July 03, 2023 12:18pm [facility] [address] [place] [address] Nephrology Progress Note Signed Patient: Mabel Moser MR#: [id number] : 1960 Acct:[id number] Age/Sex: 63 / F Adm Date: 4 Loc: Room: [address] [place] [address] Type: ADM IN Attending Dr: Jim Randhawa [...] Output I&O: Intake & Output 06/30/23 07/01/23 07/02/2308/24 23:59 23:59 23:59 23:59 Intake Total 1175 [...] 50 Mg Tablet) 150 mg PO QHS [facility] Stop: 06/29/24 21:59 Last Admin: 07/02/23 21:00 Dose: 150 mg Aripiprazole (Aripiprazole 2 Mg Tablet) 2 mg PO DAILY [facility] Stop: 06/29/24 08:59 Last Admin: 07/03/23 08:13 Dose: 2 mg Bisacodyl (Bisacodyl 5 Mg Tablet.) 10 mg PO DAILY PRN PRN Reason: Constipation Stop: 06/28/24 21:34 Bumetanide (Bumetanide 1 Mg/4 Ml Vial) 1 mg IV-PUSH BID@0800,1600 [facility] Stop: 06/29/24 07:59 Last Admin: 07/03/23 08:14 Dose: 1 mg Calcium Acetate (Calcium Acetate 667 Mg Capsule) 667 mg PO BID.WITH.MEALS [facility] Stop: 06/29/24 07:59 Last Admin: 07/03/23 08:13 Dose: 667 mg Duloxetine HCl (Duloxetine 60 Mg Capsule.Dr) 120 mg PO DAILY [facility] Stop: 06/29/24 08:59 Last Admin: 07/03/23 08:13 Dose: 120 mg Fentanyl (Fentanyl Patch 100 Mcg/Hour Patch.Td72) 100 mcg TRANSDERML Q72H [facility]; Protocol Last Admin: 07/03/23 08:12 Dose: 100 mcg Ferrous Sulfate (Ferrous Sulfate 324 Mg Tablet.Dr) 324 mg PO DAILY [facility] Stop: 06/29/24 08:59 Last Admin: 07/03/23 08:13 Dose: 324 mg Gabapentin (Gabapentin 100 Mg Capsule) 100 mg PO TID [facility] Stop: 06/29/24 08:59 Last Admin: 07/03/23 08:13 Dose: 100 mg Guaifenesin/Dextromethorphan (Guaif/Dextromethorphan Syrup 10 Ml Udc) 10 ml PO Q8H PRN PRN Reason: Cough Stop: 06/28/24 21:34 Heparin Sodium (Porcine) (Heparin 5,000 Unit/Ml Vial) 5,000 unit SUBCUT Q12HR [facility] Stop: 06/29/24 08:59 Last Admin: 07/03/23 08:14 Dose: 5,000 unit Levothyroxine Sodium (Levothyroxine 100 Mcg Tablet) 100 mcg PO DAILY@0630 [facility] Stop: 06/29/24 06:29 Last Admin: 07/03/23 06:23 Dose: 100 mcg Linaclotide (Linaclotide 290 Mcg Capsule) 290 mcg PO Q48HR [facility] Stop: 06/29/24 08:59 Last Admin: 07/02/23 08:59 Dose: 290 mcg Liothyronine Sodium (Liothyronine 25 Mcg Tablet) 25 mcg PO DAILY@0630 [facility] Stop: 06/29/24 10:59 Last Admin: 07/03/23 06:23 Dose: 25 mcg Loratadine (Loratadine 10 Mg Tablet) 10 mg PO DAILY PRN PRN Reason: Allergy Symptoms Stop: 06/29/24 06:54 Melatonin (Melatonin 5 Mg Tablet) 5 mg PO QHS PRN PRN Reason: Insomnia Stop: 06/28/24 21:34 Metoprolol Tartrate (Metoprolol Tartrate 25 Mg Tablet) 25 mg PO BID [facility] Stop: 06/29/24 20:59 Last Admin: [...] signed by Raeann Kirkpatrick MD> 07/03/23 1218 [facility] Work Phone: 1(239) 920-197301-07-2024 Progress note Author Jim Randhawa [facility] July 02, 2023 11:26am Note Date/Time July 02, 2023 11 :26am [facility] [address] [place] [address] Hospitalist Progress Note Signed Patient: Mabel Moser MR#: [id number] : 1960 Acct:[id number] Age/Sex: 63 / F Adm Date: 4 Loc: 3T Room: [address] [place] [address] Type: ADM IN Attending Dr: Jim Randhawa [...] signed by Jim Randhawa DO> 07/02/23 1126 [facility] Work Phone: 1(696) 908-841301-07-2024 Progress [facility] July 02, 2023 10:42am Note Date/Time July 02, 2023 10 :42am [facility] [address] [place] [address] Nephrology Progress Note Signed Patient: Mabel Moser MR#: [id number] : 1960 Acct:[id number] Age/Sex: 63 / F Adm Date: 4 Loc: Room: [address] [place] [address] Type: ADM IN Attending Dr: Jim Randhawa [...] 2 Mg Tablet) 2 mg PO DAILY [facility] Stop: 06/29/24 08:59 Last Admin: 07/02/23 08:55 Dose: 2 mg Bisacodyl (Bisacodyl 5 Mg Tablet.Dr) 10 mg PO DAILY PRN PRN Reason: Constipation Stop: 06/28/24 21:34 Bumetanide (Bumetanide 1 Mg/4 Ml Vial) 1 mg IV-PUSH BID@0800,1600 [facility] Stop: 06/29/24 07:59 Last Admin: 07/02/23 08:55 Dose: 1 mg Calcium Acetate (Calcium Acetate 667 Mg Capsule) 667 mg PO BID.WITH.MEALS [facility] Stop: 06/29/24 07:59 Last Admin: 07/02/23 08:55 Dose: 667 mg Duloxetine HCl (Duloxetine 60 Mg Capsule.) 120 mg PO DAILY [facility] Stop: 06/29/24 08:59 Last Admin: 07/02/23 08:59 Dose: 120 mg Fentanyl (Fentanyl Patch 100 Mcg/Hour Patch.Td72) 100 mcg TRANSDERML Q72H [facility]; Protocol Last Admin: 06/30/23 09:31 Dose: 100 mcg Ferrous Sulfate (Ferrous Sulfate 324 Mg Tablet.) 324 mg PO DAILY [facility] Stop: 06/29/24 08:59 Last Admin: 07/02/23 08:55 Dose: 324 mg Gabapentin (Gabapentin 100 Mg Capsule) 100 mg PO TID [facility] Stop: 06/29/24 08:59 Last Admin: 07/02/23 08:55 Dose: 100 mg Guaifenesin/Dextromethorphan (Guaif/Dextromethorphan Syrup 10 Ml Udc) 10 ml PO Q8H PRN PRN Reason: Cough Stop: 06/28/24 21:34 Heparin Sodium (Porcine) (Heparin 5,000 Unit/Ml Vial) 5,000 unit SUBCUT Q12HR [facility] Stop: 06/29/24 08:59 Last Admin: 07/02/23 08:55 Dose: 5,000 unit Levothyroxine Sodium (Levothyroxine 100 Mcg Tablet) 100 mcg PO DAILY@0630 [facility] Stop: 06/29/24 06:29 Last Admin: 07/02/23 05:48 Dose: 100 mcg Linaclotide (Linaclotide 290 Mcg Capsule) 290 mcg PO Q48HR [facility] Stop: 06/29/24 08:59 Last Admin: 07/02/23 08:59 Dose: 290 mcg Liothyronine Sodium (Liothyronine 25 Mcg Tablet) 25 mcg PO DAILY@0630 [facility] Stop: 06/29/24 10:59 Last Admin: 07/02/23 05:48 Dose: 25 mcg Loratadine (Loratadine 10 Mg Tablet) 10 mg PO DAILY PRN PRN Reason: Allergy Symptoms Stop: 06/29/24 06:54 Melatonin (Melatonin 5 Mg Tablet) 5 mg PO QHS PRN PRN Reason: Insomnia Stop: 06/28/24 21:34 Metoprolol Tartrate (Metoprolol Tartrate 25 Mg Tablet) 25 mg PO BID [facility] Stop: 06/29/24 20:59 Last Admin: [...] 50 Mg Tablet) 100 mg PO HS [facility] Stop: 06/29/24 21:59 Last Admin: 07/01/23 21:21 Dose: 100 mg Sevelamer Carbonate (Sevelamer Carbonate 800 Mg Tablet) 800 mg PO TID.WITH.MEALS [facility] Stop: 06/29/24 11:59 Last Admin: [...] signed by MD Los Grissom> 07/02/23 1042 [facility] Work Phone: 1([phone]) 640-690701-06-2024 Progress note Author Jim Randhawa [facility] July 01, 2023 1:52pm Note Date/Time July 01, 2023 1: 37pm [facility] [address] [place], [place] [id number] Hospitalist Progress Note Signed Patient: Mabel Moser MR#: [id number] : 1960 Acct:[id number] Age/Sex: 63 / F Adm Date: 4 Loc: Room: [address] [place] [address] Type: ADM IN Attending Dr: Jim Randhawa [...] signed by Jim Randhawa DO> 07/01/23 1352 [facility] Work Phone: 1(442) 519-136101-06-2024 Progress note Author Los [facility] July 01, 2023 10:16am Note Date/Time July 01, 2023 10 :16am [facility] [address] [place] [address] Nephrology Progress Note Signed Patient: Mabel Moser MR#: [id number] : 1960 Acct:[id number] Age/Sex: 63 / F Adm Date: 4 Loc: Room: [address] [place] [address] Type: ADM IN Attending Dr: Jim Randhawa [...] Intake and Output I&O: Intake & Output 01/0306/29/23 06/30/23 07/01/23 23:59 23:59 23:59 23:59 Intake [...] 50 Mg Tablet) 150 mg PO QHS [facility] Stop: 06/29/24 21:59 Last Admin: 06/30/23 21:17 Dose: 150 mg Aripiprazole (Aripiprazole 2 Mg Tablet) 2 mg PO DAILY [facility] Stop: 06/29/24 08:59 Last Admin: 07/01/23 08:21 Dose: 2 mg Bisacodyl (Bisacodyl 5 Mg Tablet.) 10 mg PO DAILY PRN PRN Reason: Constipation Stop: 06/28/24 21:34 Bumetanide (Bumetanide 1 Mg/4 Ml Vial) 1 mg IV-PUSH BID@0800,1600 [facility] Stop: 06/29/24 07:59 Last Admin: 07/01/23 08:21 Dose: 1 mg Calcium Acetate (Calcium Acetate 667 Mg Capsule) 667 mg PO BID.WITH.MEALS [facility] Stop: 06/29/24 07:59 Last Admin: 07/01/23 08:20 Dose: 667 mg Duloxetine HCl (Duloxetine 60 Mg Capsule.) 120 mg PO DAILY [facility] Stop: 06/29/24 08:59 Last Admin: 07/01/23 08:20 Dose: 120 mg Fentanyl (Fentanyl Patch 100 Mcg/Hour Patch.Td72) 100 mcg TRANSDERML Q72H [facility]; Protocol Last Admin: 06/30/23 09:31 Dose: 100 mcg Ferrous Sulfate (Ferrous Sulfate 324 Mg Tablet.) 324 mg PO DAILY [facility] Stop: 06/29/24 08:59 Last Admin: 07/01/23 08:20 Dose: 324 mg Gabapentin (Gabapentin 100 Mg Capsule) 100 mg PO TID [facility] Stop: 06/29/24 08:59 Last Admin: 07/01/23 08:20 Dose: 100 mg Guaifenesin/Dextromethorphan (Guaif/Dextromethorphan Syrup 10 Ml Udc) 10 ml PO Q8H PRN PRN Reason: Cough Stop: 06/28/24 21:34 Heparin Sodium (Porcine) (Heparin 5,000 Unit/Ml Vial) 5,000 unit SUBCUT Q12HR [facility] Stop: 06/29/24 08:59 Last Admin: 07/01/23 08:21 Dose: 5,000 unit Levothyroxine Sodium (Levothyroxine 100 Mcg Tablet) 100 mcg PO DAILY@0630 [facility] Stop: 06/29/24 06:29 Last Admin: 07/01/23 05:46 Dose: 100 mcg Linaclotide (Linaclotide 290 Mcg Capsule) 290 mcg PO Q48HR [facility] Stop: 06/29/24 08:59 Last Admin: 06/30/23 09:33 Dose: 290 mcg Liothyronine Sodium (Liothyronine 25 Mcg Tablet) 25 mcg PO DAILY@0630 [facility] Stop: 06/29/24 10:59 Last Admin: 07/01/23 05:46 Dose: 25 mcg Loratadine (Loratadine 10 Mg Tablet) 10 mg PO DAILY PRN PRN Reason: Allergy Symptoms Stop: 06/29/24 06:54 Melatonin (Melatonin 5 Mg Tablet) 5 mg PO QHS PRN PRN Reason: Insomnia Stop: 06/28/24 21:34 Metoprolol Tartrate (Metoprolol Tartrate 25 Mg Tablet) 25 mg PO BID [facility] Stop: 06/29/24 20:59 Last Admin: [...] signed by MD Los Grissom> 07/01/23 1016 [facility] Work Phone: 1([phone] 145-915601-05-2024 Progress note Author Jim Randhawa [facility] June 30, 2023 1:13pm Note Date/Time June 30, 2023 1: 13pm [facility] [address] [place] [address] Hospitalist Progress Note Signed Patient: Mabel Moser MR#: [id number] : 1960 Acct:[id number] Age/Sex: 63 / F Adm Date: 4 Loc: Room: [address] [place] [address] Type: ADM IN Attending Dr: Jim Randhawa [...] subcu Documented By: Jim Randhawa DO 06/30/23 1305 Signed By: <Electronically signed by Jim Randhawa DO> 06/30/23 1313 [facility] Work Phone: 1(473) 720-526501-05-2024 Consult note Author Los Grissom [facility] June 30, 2023 10:45am Note Date/Time June 30, 2023 10 :26am [facility] [address] [place] [address] Nephrology Consult Note Signed Patient: Mabel Moser MR#: [id number] : 1960 Acct:[id number] Age/Sex: 63 / F Adm Date: 4 Loc: Room: [address] [place] [address] Type: ADM IN Attending Dr: Jim Randhawa DO Copies to: MD Los Mensah MD Shawn J Warner, DO~ Providers Consult Date: 06/30/23 Requesting Provider: Jim Randhawa DO Primary Care Provider: Yuri Santana MD [facility] Reason for Consult: LEEANN with [...] additional complaints, except as documented [facility] Medical History CAD (coronary artery disease) [...] 50 Mg Tablet) 150 mg PO QHS [facility] Stop: 06/29/24 21:59 Aripiprazole (Aripiprazole 2 Mg Tablet) 2 mg PO DAILY [facility] Stop: 06/29/24 08:59 Last Admin: 06/30/23 09:30 Dose: 2 mg Bisacodyl (Bisacodyl 5 Mg Tablet.) 10 mg PO DAILY PRN PRN Reason: Constipation Stop: 06/28/24 21:34 Bumetanide (Bumetanide 1 Mg/4 Ml Vial) 1 mg IV-PUSH BID@0800,1600 [facility] Stop: 06/29/24 07:59 Last Admin: 06/30/23 09:31 Dose: 1 mg Calcium Acetate (Calcium Acetate 667 Mg Capsule) 667 mg PO BID.WITH.MEALS [facility] Stop: 06/29/24 07:59 Last Admin: 06/30/23 09:30 Dose: 667 mg Duloxetine HCl (Duloxetine 60 Mg Capsule.) 120 mg PO DAILY [facility] Stop: 06/29/24 08:59 Last Admin: 06/30/23 09:30 Dose: 120 mg Escitalopram Oxalate (Escitalopram 20 Mg Tablet) 20 mg PO DAILY [facility] Stop: 06/29/24 08:59 Last Admin: 06/30/23 09:31 Dose: 20 mg Fentanyl (Fentanyl Patch 100 Mcg/Hour Patch.Td72) 100 mcg TRANSDERML Q72H [facility]; Protocol Last Admin: 06/30/23 09:31 Dose: 100 mcg Ferrous Sulfate (Ferrous Sulfate 324 Mg Tablet.) 324 mg PO DAILY [facility] Stop: 06/29/24 08:59 Last Admin: 06/30/23 09:31 Dose: 324 mg Gabapentin (Gabapentin 100 Mg Capsule) 100 mg PO TID [facility] Stop: 06/29/24 08:59 Last Admin: 06/30/23 09:31 Dose: 100 mg Guaifenesin/Dextromethorphan (Guaif/Dextromethorphan Syrup 10 Ml Udc) 10 ml PO Q8H PRN PRN Reason: Cough Stop: 06/28/24 21:34 Heparin Sodium (Porcine) (Heparin 5,000 Unit/Ml Vial) 5,000 unit SUBCUT Q12HR [facility] Stop: 06/29/24 08:59 Last Admin: 06/30/23 09:32 Dose: 5,000 unit Levothyroxine Sodium (Levothyroxine 100 Mcg Tablet) 100 mcg PO DAILY@0630 [facility] Stop: 06/29/24 06:29 Last Admin: 06/30/23 05:55 Dose: 100 mcg Linaclotide (Linaclotide 290 Mcg Capsule) 290 mcg PO Q48HR [facility] Stop: 06/29/24 08:59 Last Admin: 06/30/23 09:33 Dose: 290 mcg Liothyronine Sodium (Liothyronine 25 Mcg Tablet) 25 mcg PO DAILY [facility] Stop: 06/29/24 08:59 Loratadine (Loratadine [...] 40 Mg Tablet.) 40 mg PO BID [facility] Stop: 06/29/24 08:59 Last Admin: 06/30/23 09:31 Dose: 40 mg Primidone (Primidone 50 Mg Tablet) 100 mg PO HS [facility] Stop: 06/29/24 21:59 Sevelamer Carbonate [...] physician into a diagnostic report(s) for Mabel Ivy Moser. I have reviewed the report(s) and [...] <Electronically signed by MD Los Grissom> 06/30/23 1047 [facility] Work Phone: 1([phone]) 780-370001-04-2024 History and physical note Author Beatriz Oh [facility] June 29, 2023 9:51pm Note Date/Time June 29, 2023 9: 47pm [facility] [address] [place] [address] Hospitalist H&P Signed Patient: Mabel Moser MR#: [id number] : 1960 Acct:[id number] Age/Sex: 63 / F Adm Date: 4 Loc: Room: [address] [place] [address] Type: ADM IN Attending Dr: Papito Garces [...] having dysuria, hematuria, or frequency. [facility] Medical History CAD (coronary artery disease) [...] mg PO BID 08/31/18 [History Confirmed 10/28/22] xyecmfbh-xhkfalo-ndtd-iron fum 18 mg-folic 600 mcg-vit K 80 [...] TID PRN Edema 10/28/22 [History Confirmed 10/28/22] atavisqzuj-spzbclfyajmok-pgqymngf 50 mg-325 mg-40 mg capsule 1 cap [...] days): 3 Documented By: Beatriz Oh MD 06/29/230 Signed By: <Electronically signed by Beatriz Oh MD> 06/29/23 215 [facility] Work Phone: 1([phone]) 666-691510-10-2023 Evaluation note* Encounter Date Diagnosis Assessment Notes [...] G43.519) Advised the patient to follow with [facility] Mar, Chronic kidney disea se, [...] (ICD-10 - E83.39) Continue PhosLo with meals [facility] Other 04-04-2023 Evaluation note* Encounter Date Diagnosis [...] G43.519) Advised the patient to follow with [facility] [employer] Other 03-28-2023 [facility]The [id number]* Encounter Date Diagnosis Assessment Notes Treatment Notes Treatment Clinical Notes Jul, Contusion of right wrist, initial encounter (ICD-10 - S60.211A) Patient placed in cock up wrist splint. Activities 2-5 lbs ADLs [facility] Other 12-13-2022 [facility]The [id number] [facility]The [id number] [facility]The [id number] Evaluation note * Encounter Date Diagnosis Assessment [...] pressure. Advised the patient to follow-up with [facility] I will try to reach to Dr. Santana's office about fludrocortisone I would continue same blood pressure medications. Advised the patient to follow a low-salt diet and to monitor her blood pressure at home Mar, Migraine aura, persistent, intractable (ICD-10 - G43.519) Advised the patient to follow with [facility] Other 08-04-2022 NoteThe [id number] [facility]The [id number] Evaluation note* Encounter Date Diagnosis Assessment Notes [...] off all diuretics metolazone, spironolactone and bumetanide. [facility] Other Discharge summary Author Jim Randhawa [facility] July 03, 2023 3:03pm Note Date/Time July 03, 2023 2: 55pm [facility] [address] [place] [address] Discharge Summary Signed Patient: Mabel Moser MR#: [id number] : 1960 Acct:[id number] Age/Sex: 63 / F Adm Date: 4 Loc: Room: [address] [place] [address]: Jim Randhawa DO Copies to: [...] signed by Jim Randhawa DO> 07/03/23 1503 [facility] Work Phone: Evaluation + Plan note No data available for this section [facility] Surgery Sophie Evaluation noteNo assessment information available [facility] Work Phone: Evaluation noteNo InformationNort [employer] Other Evaluation note* Diagnosis Onset Date Resolution Status Acute heart failure acute LEEANN (acute kidney injury) ac isela Anemia chronic CKD (chronic kidney disease) stage 3, GFR 30-59 ml/min chronic Hypertension chronic [facility] Work Phone: Evaluation note* Diagnosis Onset Date Resolution Status CHF (congestive heart failure) acute Chronic kidney disease, stage 3b acute Fluid overload acute Hyperkalemia acute Secondary hyperparathyroidism acute Vitamin D deficiency acute Anemia chronic Hyponatremia chronic [facility] Work Phone: history general Narrative - Reported* [...] History COVID 05/2020 Hospitalization History COVID 04/2021 [facility] Other [facility] general Narrative - Reported* Type Description Date [...] History COVID 05/2020 Hospitalization History COVID 04/2021 [facility] Other history general Narrative - Reported* Type [...] 04/2021 Hospitalization History ELEVATED POTASSIUM LEVEL 09/19/2022 [facility] Other Hospital Discharge instructions Additional Instructions Home health to manage: - PT/OT to eval and treat - Monitor VS routine - Dx. HTN - CHF assessments/education - Urinary assessments - Dx. CKD on LEEANN - Fall precautions - [facility] Work Phone: Hospital Discharge instructions No data available for this section [facility] Progress note No data available for this section [facility] Summary Purpose Family History No Family History [...] for Visit Chief Complaint sent by brandi iss ues Chief Complaint LEEANN Reason for Visit Acute [...] DATE CREATED AUTHOR AUTHOR'S ORGANIZ ATION 07/24/2021 [facility] DATE CREATED AUTHOR AUTHOR'S ORGANIZ ATION 01/17/2022 [facility] DATE CREATED AUTHOR AUTHOR'S ORGANIZ ATION 12/05/2022 [facility] DATE CREATED AUTHOR AUTHOR'S ORGANIZ ATION 08/04/2023 [facility] DATE CREATED AUTHOR AUTHOR'S ORGANIZ ATION 10/19/2023 [facility] DATE CREATED AUTHOR AUTHOR'S ORGANIZ ATION 03/07/2024 [facility] DATE CREATED AUTHOR AUTHOR'S ORGANIZ ATION 03/27/2024 [facility] DATE CREATED AUTHOR AUTHOR'S ORGANIZ ATION 06/05/2024 [facility] DATE CREATED AUTHOR AUTHOR'S ORGANIZ ATION 09/13/2024 [facility] REASON FOR VISIT (unrecogniz ed section [...] BE BASED ON THE PRIMARY CLINICAL RECORDS. [facility]. provides no warranty or guarantee of the accuracy or completeness of information in this document.
[2024-09-15 18:17] LABS: Influenza Virus A Antigen Negative; Influenza Virus B Antigen Negative; Internal Control Within Normal Limits; SARS-CoV-2 Ag NEGATIVE (NEGATIVE)
--- NOTE | 2024-09-15 18:58 | ECG_ITS ---
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 Measurements Intervals Kennedy Rate: 84 P: 90 MI: 142 QRS: -4 QRSD: 98 T: -6 QT: 384 QTc: 424 Interpretive Statements NORMAL SINUS RHYTHM Minimal voltage criteria for LVH, may be normal variant ARTIFACT IN LEAD(S) Borderline ECG Compared to ECG 03/29/2024 14:03:36 No significant change Electronically Signed On 09-16-2024 7:08:51 EDT by BENJIE DANG M.D.
--- NOTE | 2024-09-15 19:01 | ED.URI1 ---
HPI - URI/Sore Throat General Chief Complaint: Upper Respiratory Infection Stated Complaint: SOB,FLUID RETENTION Time Seen by Provider: 09/15/24 18:51 Source: patient History of Present Illness HPI Narrative: Patient is a 64-year-old female well-known to this emergency department with a history of chronic kidney disease, lymphedema, CHF. She presents to the ER for an increase in nasal congestion, shortness of breath and a 22 pound weight gain. She is prescribed Bumex at home. She has been admitted to this hospital frequently for the same in the past. She has no complaints of chest pain but states she does feel short of breath and winded. She has had a 2-day history of cough and nasal congestion as well. No objective fevers or vomiting. She states her legs are very swollen. She takes Eliquis daily. Related Data Home Medications ?Medication ?Instructions ?Recorded ?Confirmed alprazolam 0.5 mg tablet 0.5 mg PO BID PRN anxiety 12/08/22 09/15/24 amitriptyline 150 mg tablet 300 mg PO BEDTIME 12/08/22 09/15/24 calcium acetate(phosphat bind) 667 667 mg PO BIDWM 12/08/22 09/15/24 mg capsule levothyroxine 100 mcg tablet 100 mcg PO DAILY 12/08/22 09/15/24 linaclotide 290 mcg capsule 290 mcg PO DAILY 12/08/22 09/15/24 (Linzess) oxycodone-acetaminophen 5 mg-325 2 tab PO Q6H PRN pain 12/08/22 09/15/24 mg tablet primidone 50 mg tablet 150 mg PO BEDTIME 12/08/22 09/15/24 tizanidine 4 mg tablet (Zanaflex) 4 mg PO Q6H PRN muscle spasticity 12/08/22 09/15/24 aripiprazole 2 mg tablet (Abilify) 2 mg PO DAILY 01/23/23 09/15/24 bumetanide 1 mg tablet 4 mg PO Q12H SWELLING 01/23/23 09/15/24 butorphanol 10 mg/mL nasal spray 1 spray intranasal .QD PRN pain 02/03/23 09/15/24 azelastine 0.05 % eye drops 1 drp ophthalmic (eye) DAILY 09/29/23 09/15/24 desvenlafaxine succinate 50 mg 50 mg PO DAILY 09/29/23 09/15/24 tablet,extended release 24 hr diclofenac sodium 1 % topical gel 2 g topical .QD PRN 09/29/23 09/15/24 PAIN/INFLAMMATION doxepin 10 mg capsule 20 mg PO BEDTIME 09/29/23 09/15/24 escitalopram oxalate 20 mg tablet 20 mg PO DAILY 09/29/23 09/15/24 fentanyl 100 mcg/hr transdermal 1 patch transdermal Q72H 10/12/23 09/15/24 patch pramipexole 1 mg tablet 1 mg PO .qd 10/23/23 09/15/24 sacubitril 49 mg-valsartan 51 mg 1 tab PO BID 01/04/24 09/15/24 tablet (Entresto) spironolactone 50 mg tablet 50 mg PO Q12H 01/04/24 09/15/24 apixaban 5 mg tablet (Eliquis) 5 mg PO BID 03/29/24 09/15/24 atorvastatin 40 mg tablet 40 mg PO .HS 03/29/24 09/15/24 ddfxtjezyc-fnvacvtcojkrt-rmxvymhm 1 cap PO DAILY PRN migraine 03/29/24 09/15/24 50 mg-300 mg-40 mg capsule headache fluticasone furoate 100 1 inh inhalation Q24H 03/29/24 09/15/24 mcg-vilanterol 25 mcg/dose inhalation powder (Breo Ellipta) sevelamer carbonate 800 mg tablet 800 mg PO BID 03/29/24 09/15/24 Previous Rx's ?Medication ?Instructions ?Recorded levofloxacin 500 mg tablet 500 mg PO DAILY 10 days #10 tabs 09/18/24 sacubitril 24 mg-valsartan 26 mg 1 tab PO BID #60 tabs 09/18/24 tablet (Entresto) Allergies Allergy/AdvReac Type Severity Reaction Status Date / Time povidone-iodine (From Allergy Intermediate Rash Verified 08/27/24 08:54 Betadine) amoxicillin (From Augmentin) AdvReac Mild Vomiting Verified 08/27/24 08:56 clavulanic acid (From AdvReac Mild Vomiting Verified 08/27/24 08:56 Augmentin) Sulfa (Sulfonamide AdvReac Mild Vomiting Verified 08/27/24 08:56 Antibiotics) ciprofloxacin (From Cipro) AdvReac Unknown Vomiting Verified 08/27/24 08:56 Review of Systems ROS Constitutional Denies: fever or chills Ears, nose, mouth, and throat Reports: nasal congestion; Denies: throat pain Cardiovascular Denies: chest pain Respiratory Reports: shortness of breath and cough Gastrointestinal Denies: abdominal pain, nausea, vomiting or diarrhea Musculoskeletal Reports: extremity pain and extremity swelling; Denies: back pain or neck pain Integumentary/Breast Reports: skin tenderness and skin swelling Neurological Denies: headache, numbness in extremities or weakness in extremities Psychiatric Reports: anxiety Hematologic/Lymphatic Reports: easy bruising and easy bleeding PFSH PFSH Medical History Hyperglycemia ?R73.9 - Hyperglycemia, unspecified (ICD-10) Recurrent UTI ?N39.0 - Urinary tract infection, site not specified (ICD-10) Atelectasis of both lungs ?J98.11 - Atelectasis (ICD-10) C2 cervical fracture ?S12.100A - Unspecified displaced fracture of second cervical vertebra, initial encounter for closed fracture (ICD-10) Shoulder pain, left ?M25.512 - Pain in left shoulder (ICD-10) Pulmonary embolism ?I26.99 - Other pulmonary embolism without acute cor pulmonale (ICD-10) DVT (deep venous thrombosis) ?I82.409 - Acute embolism and thrombosis of unspecified deep veins of unspecified lower extremity (ICD-10) Osteoporosis ?M81.0 - Age-related osteoporosis without current pathological fracture (ICD-10) Seizures ?R56.9 - Unspecified convulsions (ICD-10) IBS (irritable bowel syndrome) ?K58.9 - Irritable bowel syndrome without diarrhea (ICD-10) D-dimer, elevated ?R79.89 - Other specified abnormal findings of blood chemistry (ICD-10) Chronic kidney insufficiency ?N18.9 - Chronic kidney disease, unspecified (ICD-10) Fluid overload ?E87.70 - Fluid overload, unspecified (ICD-10) Lymphedema ?I89.0 - Lymphedema, not elsewhere classified (ICD-10) Volume overload ?E87.70 - Fluid overload, unspecified (ICD-10) Anemia of chronic disease ?D63.8 - Anemia in other chronic diseases classified elsewhere (ICD-10) Chronic kidney disease ?N18.9 - Chronic kidney disease, unspecified (ICD-10) Acute kidney injury ?N17.9 - Acute kidney failure, unspecified (ICD-10) Edema of lower leg due to peripheral venous insufficiency ?I87.2 - Venous insufficiency (chronic) (peripheral) (ICD-10) ?R60.0 - Localized edema (ICD-10) Depression ?F32.A - Depression, unspecified (ICD-10) Gastroenteritis ?K52.9 - Noninfective gastroenteritis and colitis, unspecified (ICD-10) Migraine without aura and without status migrainosus, not intractable ?G43.009 - Migraine without aura, not intractable, without status migrainosus (ICD-10) Chronic heart failure with preserved ejection fraction (HFpEF) ?I50.32 - Chronic diastolic (congestive) heart failure (ICD-10) Chest pain ?R07.9 - Chest pain, unspecified (ICD-10) Dyspnea ?R06.00 - Dyspnea, unspecified (ICD-10) Osteoarthritis ?M19.90 - Unspecified osteoarthritis, unspecified site (ICD-10) Anemia ?D64.9 - Anemia, unspecified (ICD-10) Anxiety ?F41.9 - Anxiety disorder, unspecified (ICD-10) Stroke ?I63.9 - Cerebral infarction, unspecified (ICD-10) Acid reflux ?K21.9 - Gastro-esophageal reflux disease without esophagitis (ICD-10) Hypothyroid ?E03.9 - Hypothyroidism, unspecified (ICD-10) COPD (chronic obstructive pulmonary disease) ?J44.9 - Chronic obstructive pulmonary disease, unspecified (ICD-10) Asthma ?J45.909 - Unspecified asthma, uncomplicated (ICD-10) CHF (congestive heart failure) ?I50.9 - Heart failure, unspecified (ICD-10) Irregular heart beat ?I49.9 - Cardiac arrhythmia, unspecified (ICD-10) HTN (hypertension) ?I10 - Essential (primary) hypertension (ICD-10) Heart attack ?I21.9 - Acute myocardial infarction, unspecified (ICD-10) Lumbar spondylosis ?M47.816 - Spondylosis without myelopathy or radiculopathy, lumbar region (ICD-10) Surgical History H/O cervical spinal arthrodesis ?Z98.1 - Arthrodesis status (ICD-10) Port-A-Cath in place ?Z95.828 - Presence of other vascular implants and grafts (ICD-10) History of lumbar fusion ?Z98.1 - Arthrodesis status (ICD-10) H/O hysterectomy with oophorectomy H/O gastric bypass ?Z98.84 - Bariatric surgery status (ICD-10) History of hernia repair ?Z98.890 - Other specified postprocedural states (ICD-10) ?Z87.19 - Personal history of other diseases of the digestive system (ICD-10) History of rotator cuff surgery ?Z98.890 - Other specified postprocedural states (ICD-10) History of right knee joint replacement ?Z96.651 - Presence of right artificial knee joint (ICD-10) History of appendectomy ?Z90.49 - Acquired absence of other specified parts of digestive tract (ICD-10) Hx of cholecystectomy ?Z90.49 - Acquired absence of other specified parts of digestive tract (ICD-10) Family History Father Family history of CHF (congestive heart failure) Family history of diabetes mellitus Family history of hypertension Family history of myocardial infarction Family history of stroke Mother Family history of CHF (congestive heart failure) Family history of COPD (chronic obstructive pulmonary disease) Family history of diabetes mellitus Family history of hypertension Family history of myocardial infarction Family history of stroke Social History (Updated 09/15/24 @ 22:10 by Rosa Isela Marroquin RN) Within the past year, how often did you have a drink containing alcohol: never Within the past year, how often did you have six or more drinks on one occasion: never Score interpretation: A score less than 3 is consistent with normal alcohol consumption. 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 Highest level of school completed/degree received: some college, no degree Are you now , , , , never or living with a partner: In a typical week, how many times do you talk on the telephone with family, friends, or neighbors: 3 or more times per week How often do you get together with friends or relatives: twice per week How often do you attend temple or voodoo services: 4 or more times per year Do you belong to any clubs or organizations such as temple groups unions, fraternal or athletic groups, or school groups: no Total score: 3 Score interpretation: A score of greater than or equal to 2 indicates the lowest level of social isolation. Little interest or pleasure in doing things: not at all Feeling down, depressed, or hopeless: not at all Feel stressed/tense/nervous/anxious/difficulty sleeping: to some extent Life stressors: recent of family or friend Do you think of yourself as: straight/heterosexual Gender Identity: female Exam Narrative Exam Narrative: Gen.: Awake, alert, in no distress, sitting in a bedside chair Head: Normocephalic, atraumatic ENT: Moist mucous membranes Respiratory: No respiratory distress, speaks in full sentences, scattered rhonchi Cardio: Regular rate and rhythm Extremities: Moves extremities equally, bilateral lower extremities with lymphedema. Redness noted to the distal legs, symmetric. No open wounds or drainage. No red streaking Psych: Normal mood and affect Neuro: No focal neuro deficit Skin: Warm, dry, intact Constitutional Vital Signs, click to edit/add: Last Vital Signs Temp 98.2 F 09/18/24 07:13 Pulse 82 09/18/24 07:13 Resp 16 09/18/24 07:13 BP 134/72 09/18/24 07:13 Pulse Ox 95 09/18/24 07:13 O2 Del Method Room Air 09/18/24 07:13 Course Course Hospital Course: Patient was seen and evaluated in the emergency room with increasing shortness of breath and weight gain of 20 pounds, she contacted office 3 days prior we doubled her diuretics to 4 mg twice a day Bumex and increased dose of Aldactone, she did not have any significant increase in urine output, BNP was normal lung exam was clear but had significant fluid overload in her lower extremities and likely cellulitis left lower extremity, ultrasounds of lower extremities were negative for DVT, she was placed on Bumex drip on 3 occasions throughout the hospitalization with excellent diuresis of 10 L total with a net of 8 L. Creatinine starting to slightly elevated but is still within her baseline at 1.9. She does feel better with her ambulation, less shortness of breath, at this point she is medically stable for discharge to home, resume previous medication doses prior to the changes before admission. Restart Entresto. And Levaquin for antibiotics, she will see me in the office in 2 days Vital Signs Vital signs: Vital Signs Temperature 98.0 F 09/15/24 17:34 Pulse Rate 90 09/15/24 17:34 Respiratory Rate 22 H 09/15/24 17:34 Blood Pressure 158/94 H 09/15/24 17:34 Pulse Oximetry 100 09/15/24 17:34 Oxygen Delivery Method Room Air 09/15/24 17:34 Temperature 98.2 F 09/18/24 07:13 Pulse Rate 82 09/18/24 07:13 Respiratory Rate 16 09/18/24 07:13 Blood Pressure 134/72 09/18/24 07:13 Pulse Oximetry 95 09/18/24 07:13 Oxygen Delivery Method Room Air 09/18/24 07:13 MDM - URI/Sore Throat MDM Narrative Medical decision making narrative: Respiratory swabs are negative. Patient's port was accessed and labs including blood cultures were drawn. Patient is noted to have stable, improved kidney function and normal BNP. Previous visits were reviewed showing that the patient has had this presentation frequently in the past with stable labs, she is admitted for a Bumex IV drip until her clinical condition improves. We will pursue this tonight. She was given antibiotic coverage with Levaquin for upper respiratory symptoms. Stable at time of admission. SUPERVISED APC VISIT, PHYSICIAN ATTESTATION: Based on the medical record the care appears appropriate. ? Medical Records Attestation: I reviewed the patient's medical records. Lab Data Attestation: I reviewed the patient's lab results. Labs: Lab Results 09/15/24 09/15/24 Range/Units 17:43 19:15 WBC 4.3 (4.0-11.0) 10^3/uL RBC 3.18 L (4.20-5.40) 10^6/uL Hgb 9.8 L (12.0-16.0) g/dL Hct 31.4 L (36.0-48.0) % MCV 98.7 (81.0-99.0) fL MCH 30.8 (26.7-34.0) pg MCHC 31.2 (29.9-35.2) g/dL RDW 13.7 (11.0-15.0) % Plt Count 219 (150-450) 10^3/uL MPV 8.8 L (9.5-13.5) fL Neut % (Auto) 59.3 (43.0-75.0) % Lymph % (Auto) 22.4 (20.5-60.0) % Trinity % (Auto) 14.8 H (1.7-12.0) % Eos % (Auto) 2.8 (0.9-7.0) % Baso % (Auto) 0.5 (0.2-2.0) % Neut # (Auto) 2.6 (1.4-6.5) 10^3/uL Lymph # (Auto) 1.0 L (1.2-3.8) 10^3/uL Trinity # (Auto) 0.6 (0.3-0.8) 10^3/uL Eos # (Auto) 0.1 (0.0-0.7) 10^3/uL Baso # (Auto) 0.0 (0.0-0.1) 10^3/uL Abs Immat Gran (auto) 0.01 (0.00-0.03) 10^3/uL Imm/Tot Granulo (auto) 0.2 (0.0-0.5) % PT 10.9 (9.0-11.6) sec INR 1.03 VBG pH 7.346 (7.330-7.430) VBG pCO2 47.8 (40.0-52.0) mmHg Sodium 135 L (136-145) mmol/L Potassium 3.7 (3.5-5.1) mmol/L Chloride 99 (98-107) mmol/L Carbon Dioxide 26.4 (21.0-32.0) mmol/L Anion Gap 13.3 BUN 48.0 H (7.0-18.0) mg/dL Creatinine 1.88 H (0.55-1.02) mg/dL Est GFR ( Amer) 33 L (>=60 mL/min/1.73m^2) Est GFR (Non-Af Amer) 27 L (>=60 mL/min/1.73m^2) BUN/Creatinine Ratio 25.5 Glucose 86 (74-106) mg/dL Lactate 0.6 (0.4-2.0) mmol/L Calcium 8.5 (8.5-10.1) mg/dL Total Bilirubin 0.3 (0.2-1.0) mg/dL AST 33 (15-37) U/L ALT 20 (14-59) U/L Alkaline Phosphatase 289 H (46-116) U/L Troponin I High Sens 15.1 (4.0-51.3) pg/mL NT-Pro-B Natriuret Pep 749.0 (<=900.0) pg/mL Total Protein 6.9 (6.4-8.2) g/dL Albumin 3.2 L (3.4-5.0) g/dL Globulin 3.7 g/dL Albumin/Globulin Ratio 0.9 Influenza Type A Ag Negative Influenza Type B Ag Negative SARS-CoV-2 Ag (CV2AG) Negative (NEGATIVE) Imaging Data Chest x-ray: Attestation: I have reviewed the pertinent imaging results. ECG Data Attestation: I personally reviewed and interpreted this ECG as follows: (Normal sinus rhythm at a rate of 84 with frequent PVC, artifact noted. No acute ST elevation. EKG reviewed by attending physician) Discharge Plan Discharge Chief Complaint: Upper Respiratory Infection Clinical Impression: URI (upper respiratory infection), Shortness of breath, Peripheral edema Patient Disposition: Admitted As Inpatient Time of Disposition Decision: 20:37 Condition: Good Discharge Date/Time: 09/15/24 21:45
[2024-09-15] MEDS: ALBUTEROL SULFATE 2.5 MG/3 ML VIAL NEB IH (19:20)
--- NOTE | 2024-09-15 19:27 | PC.NURSE ---
1 inch Stovall needle right chest port
[2024-09-15 19:30] LABS: Basophils Percent Auto 0.5 % (0.2-2.0); Eosinophils Absolute Auto 0.1 10^3/uL (0.0-0.7); Eosinophils Percent Auto 2.8 % (0.9-7.0); Hematocrit 31.4 % (36.0-48.0); Hemoglobin 9.8 g/dL (12.0-16.0); Immature Granulocytes Abs Auto 0.01 10^3/uL (0.00-0.03); Immature Granulocytes Pct Auto 0.2 % (0.0-0.5); Lymphocytes Percent Auto 22.4 % (20.5-60.0); Mean Corpuscular HGB Conc 31.2 g/dL (29.9-35.2); Mean Corpuscular Hemoglobin 30.8 pg (26.7-34.0); Mean Corpuscular Volume 98.7 fL (81.0-99.0); Mean Platelet Volume 8.8 fL (9.5-13.5); Monocytes Absolute Auto 0.6 10^3/uL (0.3-0.8); Monocytes Percent Auto 14.8 % (1.7-12.0); Neutrophils Absolute Auto 2.6 10^3/uL (1.4-6.5); Neutrophils Percent Auto 59.3 % (43.0-75.0); Platelet Count 219 10^3/uL (150-450); Red Blood Count 3.18 10^6/uL (4.20-5.40); Red Cell Distribution Width 13.7 % (11.0-15.0); White Blood Count 4.3 10^3/uL (4.0-11.0)
[2024-09-15 19:38] LABS: PCO2 VBG 47.8 mmHg (40.0-52.0); pH VBG 7.346 (7.330-7.430)
[2024-09-15 19:52] LABS: INR 1.03; Prothrombin Time 10.9 sec (9.0-11.6)
[2024-09-15 19:56] LABS: Alanine Aminotransferase 20 U/L (14-59); Albumin Globulin Ratio 0.9; Albumin Level 3.2 g/dL (3.4-5.0); Alkaline Phosphatase 289 U/L (46-116); Anion Gap 13.3; Aspartate Amino Transferase 33 U/L (15-37); BUN Creatinine Ratio 25.5; Bilirubin Total 0.3 mg/dL (0.2-1.0); Calcium 8.5 mg/dL (8.5-10.1); Carbon Dioxide 26.4 mmol/L (21.0-32.0); Chloride 99 mmol/L (98-107); Estimated GFR (African America 33 (>=60 mL/min/1.73m^2); Estimated GFR (Non-African Ame 27 (>=60 mL/min/1.73m^2); Globulin 3.7 g/dL; Glucose 86 mg/dL (74-106); Potassium 3.7 mmol/L (3.5-5.1); Sodium 135 mmol/L (136-145); Total Protein 6.9 g/dL (6.4-8.2)
[2024-09-15 19:58] LABS: Lactate/Lactic Acid 0.6 mmol/L (0.4-2.0)
[2024-09-15 20:04] LABS: Troponin I High Sensitivity 15.1 pg/mL (4.0-51.3)
[2024-09-15] MEDS: OXYCODONE HCL/ACETAMINOPHEN 5MG/325MG 1 TAB PO (20:15)
[2024-09-15] MEDS: LEVOFLOXACIN IN DEXTROSE 5 % 750 MG/150 ML PREMIX 100 MG IV (20:47)
--- OUTSIDE RECORDS SUMMARY | 2024-09-15 22:02 | XMS_ITS | CCD ---
Author Organization [facility] Care Team Providers Care Cleaning Validation Consultant Name Role Phone NIRMAL LEWIS Admitting Unavailable [...] Primary Care Provider WALLY Helm Emergency Provider [phone] ROBERT JOHNSTON Attending Unavailable ROBERT JOHNSTON Admitting [...] DR BARBOUR Consulting Unavailable HOY ., DR BARBUOR Consulting Unavailable HOY ., DR BARBOUR Primary [...] Unavailable HOY ., DR BARBOUR Attending Unavailable [place], DR CARLOS Castillo Consulting Unavailable LAKSHMIPATHY ., [...] ANIKA Blair Attending Unavailable HARP ., DR AINKA Blair Admitting Unavailable HARP ., DR ANIKA [...] Unavailable MD Yuri Santana Primary Care Provider [phone] MD Beatriz Oh Admit Provider DO Jim Randhawa Attending Provider [phone] MD [place] Other Provider Jim Randhawa [...] Drug Allergy 10-29-19 23 Unknown, Diarrhea [facility] (6 sources) Amoxicillin / Clavulanate; Translations: [amoxicillin-clavul anate] Drug Allergy Weal (disorder) [facility] [place] (16 sources) Povidone-Iodine; Translations: [POVIDONE-IODINE] Drug Allergy 08-15-19 17 Eruption of skin (disorder) [facility] (9 sources) Sulfamethoxazole / Trimethoprim Drug Allergy Unknown [facility] Other (1 source) sulfaSALAzine Drug Allergy Unknown [facility] Other (8 sources) Amoxicillin / Clavulanate; Translations: [Augmentin] Drug Allergy 11-26-19 13 Unknown [facility] (1 source) Bumetanide Drug Allergy 03-22-20 16 [facility] (1 source) Cephalexin Drug Allergy 01-15-20 14 [facility] (2 sources) gabapentin; Translations: [GABAPENTIN] Drug Allergy 08-19-19 22 [facility] (4 sources) Povidone-Iodine; Translations: [Betadine] Drug Allergy 11-26-19 13 [facility] (1 source) pregabalin; Translations: [LYRICA] Drug Allergy 08-19-19 22 [facility] (9 sources) Sulfonamides (Antibiotic); Translations: [SULFA (SULFONAMIDE ANTIBIOTICS)] Drug allergy (disorder) 11-26-19 13 Rash [facility] (1 source) Sulfonamide Drug allergy Unknown [facility] Other (7 sources) Substance with sulfonamide structure and antibacterial mechanism of action (substance) Drug allergy Unknown [facility] Other (4 sources) Clavulanate; Translations: [clavulanic acid] Drug Allergy 10-29-[address] [facility] (1 source) Ciprofloxacin Drug Allergy 05-26-20 [facility] (1 source) Amoxicillin Drug Allergy 04-04-20 [facility] (1 source) Povidone-Iodine Drug Allergy 04-04-20 [facility] (2 sources) Sulfamethoxazole Drug Allergy 04-04-[address] [facility] (1 source) Sulfonamides (Antibiotic) Drug allergy (disorder) 04-04-20 [facility] (2 sources) Trimethoprim Drug Allergy 04-04-[address] [facility] (3 sources) AMOXICILLIN-POT CLAVULANATE; Translations: [AMOXICILLIN-POT CLAVULANATE] Propensity to adverse reactions to drug (disorder) 06-13-20 14 [facility] (2 sources) Sulfonamides (Antibiotic); Translations: [sulfa drugs] Drug allergy Eruption of skin (disorder) [facility] [place] (1 source) carvedilol; Translations: [CARVEDILOL] Drug Allergy 12-21-19 [facility] (1 source) Cephalexin; Translations: [CEPHALEXIN] Drug Allergy 06-13-20 14 [facility] (1 source) Ciprofloxacin; Translations: [CIPROFLOXACIN] Drug Allergy 10-11-19 [facility] (1 source) Iodine; Translations: [IODINE] Drug Allergy 11-28-19 [facility] (1 source) pregabalin; Translations: [PREGABALIN] Drug Allergy 10-11-19 [facility] (1 source) Sulfamethoxazole / Trimethoprim; Translations: [SULFAMETHOXAZOLE-T RIMETHOPRIM] Drug Allergy 11-28-19 [facility] Medications Current Medications Medication Drug [...] 02/12/24 Status: Ordered Start: 10-28-2022 End: 06-30-2023 Eixunsikzl-Eccyjvwyjzhss-Ofc f Discontinued 1 CAP PO As Directed [...] Start: 02-12-2024 buto rphanol 10 mg/mL Nasal Kenneth = 1 spray(s), Nasal, Daily, PRN as [...] Start: 02-12-2024 take 3 tablets by [facility] once daily primidone 50 mg Tab 150 [...] 2018 7:59am take 2 tablets by [facility] every twenty-four hours Primidone 50 MG 2 [...] 2023 12:34am take [address] [facility] twice daily Sacubitril-Valsartan 97-103 MG 3 tablet [...] 2018 1:00am take 2 tablets by [facility] every four hours as needed oxyCODONE-Acetaminophen 5-325 [...] 30, 2023 1:30am take 1 tablet by [facility] four times daily as needed Dicyclomine HCl 20 MG 1 tablet Orally Fo ur times a day NEEDED Active DULoxetine 60 mg delayed release oral capsule (12 sources) Serotonin and Norepinephrine Reuptake Inhibitor Start: 10-28-2022 End: 03-26-2024 take 120 mg by mouth once daily Duloxetine Discontinued 120 MG PO Daily October 28, 2022 12:00am March 26, 2024 12:05pm take [address] [facility] every twelve hours DULoxetine HCl 60 [...] with food Orally Twice a day Not-Taking/PRN Jh-Leoeylw-Mdu-Iron Fm-Fa-Vitk (Multi For Her) 18 mg iron-600 mcg-80 mcg Tablet (3 sources) Start: 08-31-2018 End: 06-30-2023 take 1 tablet by mouth once daily Rm-Kwsquqq-Qlr-Iron Fm-Fa-Vitk (Multi For Her) 18 mg iron-600 mcg-80 mcg Tablet Discontinued 1 TAB PO Daily August 31, 2018 1:00am June 30, 2023 1:26am Start: 08-31-2018 End: 06-30-2023 take 1 tablet by mouth once daily Rw-Rxzhmnj-Suq-Iron Fm-Fa-Vitk (Multi For Her) 18 mg iron-600 mcg-80 mcg Tablet Discontinued 1 TAB PO Daily August 31, 2018 12:00am June 30, 2023 12:26am Start: 08-31-2018 take 1 tablet by joseph th once daily Fx-Tuhmyhz-Ubo-Iron Fm-Fa-Vitk (Multi For Her) 18 mg iron-600 [...] disease (2 sources) Atherosclerotic heart disease of [place] coronary artery without angina pectoris; Translations: [Coronary [...] medical drugs (1 source) Adverse effect of tswdszbserh-vdituygzlc-y nzyme inhibitors, initial encounter; Translations: [ADVERSE EFFECT [...] aftercare (3 sources) Polypharmacy ; Translations: [Other terminal system operator (current) drug therapy] 09-04-2018 Episodic Other aftercare (1 source) Other terminal system operator (current) drug therapy; Translations: [OTH USP 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 THERAPY] Onset: 3 Episodic Other [...] Interpretation Reference Range Facility Follow-Upon 09-09-2024 Follow-Up [id number] Loren Moser 1960 F Date Provider Department Center 09/09/2024 MATTHEW MONTEIRO MP ORTHO MPORTHO Family History Family history unknown: Yes Level of Service:26337 [place] OFFICE/OUTPATIENT ESTABLISHED LOW MDM 20 MIN (GC) Normal [facility] Office Visiton 03-27-2024 Follow-up visit [id number] Loren Moser 1960 F Date Provider Department Center 03/27/2024 Kasi-BENJIE DANG YVONNE Cansecoevue [facility] Family History Family history unknown: Yes Level of Service:69696 [place] OFFICE/OUTPATIENT ESTABLISHED LOW MDM 20 MIN Normal [facility] Ambulatory Visit Summaryon 0 03-05-2024 Ambulatory [...] mg Tab) butorphanol (butorphanol 10 mg/mL Nasal Kenneth) cyanocobalamin (cyanocobalamin 1000 mcg/mL Inj) desvenlafaxine (desvenlafaxine [...] Unchanged butorphanol (butorphanol 10 mg/ mL Nasal Kenneth) 1 Sprays Nasal Inhalation Every day as [...] hypertension Bilate (more content not included)... Normal [facility] Magnesiumon 01-30-2024 Magnesium [Mass/Vol] 2.0 mg/dL Normal 1.6-2.4 [facility] Comment on above: Performed By: #### C DP, CMPX #### [facility] [employer] [address] [place] [address] Sql Report Developer: Michael Chen MD CBC with Diffon 01-29-2024 Abs. Basophil 0.00 k/uL Normal 0.0-0.2 [facility] Comment on above: Performed By: #### C DP, CMPX #### [address] [address] Sql Report Developer: Michael Chen MD Abs.Imm.Granulocyte 0.09 k/uL Normal 0.00-0.30 [facility] Comment on above: Performed By: #### C DP, CMPX #### [address] [address] Sql Report Developer: Michael Chen MD Abs.Neutrophil (Seg) 6.87 k/uL Normal 1.8-7.7 [facility] Comment on above: Performed By: #### C DP, CMPX #### [address] [address] Sql Report Developer: Michael Chen MD Basophils/100 WBC (Bld) 0 % Normal 0-2 [facility] Comment on above: Performed By: #### C DP, CMPX #### [address] [address] Sql Report Developer: Michael Chen MD Eosinophils (Bld) [#/Vol] 0.26 10*3/uL Normal 0.0-0.4 [facility] Comment on above: Performed By: #### C DP, CMPX #### [address] [address] Sql Report Developer: Michael Chen MD Eosinophils/100 WBC (Bld) 3 % Normal 1-4 [facility] Comment on above: Performed By: #### C DP, CMPX #### [address] [address] Sql Report Developer: Michael Chen MD Immature granulocytes/100 WBC (Bld) 1 % High 0 [facility] Comment on above: Performed By: #### C DP, CMPX #### [place] [address] Sql Report Developer: Michael Chen MD Lymphocytes (Bld) [#/Vol] 0.95 10*3/uL Low 1.0-4.8 [facility] Comment on above: Performed By: #### C DP, CMPX #### [address] [address] Sql Report Developer: Michael Chen MD Lymphocytes/100 WBC (Bld) 11 % Low 24-44 [facility] Comment on above: Performed By: #### C DP, CMPX #### [address] [address] Sql Report Developer: Michael Chen MD Monocytes (Bld) [#/Vol] 0.43 10*3/uL Normal 0.1-0.8 [facility] Comment on above: Performed By: #### C DP, CMPX #### [address] [address] Sql Report Developer: Michael Chen MD Monocytes/100 WBC (Bld) 5 % Normal 1-7 [facility] Comment on above: Performed By: #### C DP, CMPX #### [address] [address] Sql Report Developer: Michael Chen MD Morphology Pedro (Bld) [Interp] Normal Normal [facility] Comment on above: Performed By: #### C DP, CMPX #### [address] [address] Sql Report Developer: Michael Chen MD Neutrophil (Seg) 80 % High 36-66 [facility] Comment on above: Performed By: #### C DP, CMPX #### [address] [address] Sql Report Developer: Michael Chen MD Platelet, Fluoresc. 288 k/uL Normal 138-453 [facility] Comment on above: Performed By: #### C DP, CMPX #### [facility] [address] [place] [address] Sql Report Developer: Michael Chen MD PLT, Immature Fract. 1.5 % Normal 1.1-10.3 [facility] Comment on above: Performed By: #### C DP, CMPX #### [facility] [employer] [address] [place] [address] Sql Report Developer: Michael Chen MD Erythrocyte distribution width (RBC) [Ratio] 13.6 % Normal 11.8-14.4 [facility] Comment on above: Performed By: #### C DP, CMPX #### [facility] [address] [place] [address] Sql Report Developer: Michael Chen MD Hematocrit (Bld) [Volume fraction] 25.9 % Low 36.3-47.1 [facility] Comment on above: Performed By: #### C DP, CMPX #### [facility] [address] [place] [address] Sql Report Developer: Michael Chen MD Hemoglobin (Bld) [Mass/Vol] 7.8 g/dL Low 11.9-15.1 [facility] Comment on above: Performed By: #### C DP, CMPX #### [facility] [address] [address] Sql Report Developer: Michael Chen MD MCH (RBC) [Entitic mass] 29.8 pg Normal 25.2-33.5 [facility] Comment on above: Performed By: #### C DP, CMPX #### [facility] [address] [place] [address] Sql Report Developer: Michael Chen MD MCHC (RBC) [Mass/Vol] 30.1 g/dL Normal 28.4-34.8 [facility] Comment on above: Performed By: #### C DP, CMPX #### [address] [address] Sql Report Developer: Michael Chen MD MCV (RBC) [Entitic vol] 98.9 fL Normal 82.6-102.9 [facility] Comment on above: Performed By: #### C DP, CMPX #### [address] [address] Sql Report Developer: Michael Chen MD NRBC Automated 0.0 per 100 WBC Normal 0.0 [facility] Comment on above: Performed By: #### C DP, CMPX #### [address] [address] Sql Report Developer: Michael Chen MD Platelet Count See Reflexed IPF Result Normal 138-453 [facility] Comment on above: Performed By: #### C DP, CMPX #### [address] [address] Sql Report Developer: Michael Chen MD RBC (Bld) [#/Vol] 2.62 10*6/uL Low 3.95-5.11 [facility] Comment on above: Performed By: #### C DP, CMPX #### [address] [address] Sql Report Developer: Michael Chen MD WBC (Bld) [#/Vol] 8.6 10*3/uL Normal 3.5-11.3 [facility] Comment on above: Performed By: #### C DP, CMPX #### [address] [address] Sql Report Developer: Michael Chen MD CTA HEAD NECK W [...] Flavio Pierson MD 01/29/24 Final result Normal [facility] Comp Metabolic Pr/rfx MGon 0 01-29-2024 Albumin [Mass/Vol] 3.0 g/dL Low 3.5-5.2 [facility] Comment on above: Performed By: #### C DP, CMPX #### [address] [address] Sql Report Developer: Michael Chen MD Albumin/Glob Ratio 1.0 Normal 1.0-2.5 [facility] Comment on above: Performed By: #### C DP, CMPX #### [address] [address] Sql Report Developer: Michael Chen MD Alkaline Phos 205 U/L High 35-104 [facility] Comment on above: Performed By: #### C DP, CMPX #### [address] [address] Sql Report Developer: Michael Chen MD ALT [Catalytic activity/Vol] U/L Low 10-35 [facility] Comment on above: Performed By: #### C DP, CMPX #### [address] [address] Sql Report Developer: Michael Chen MD Anion gap [Moles/Vol] 11 mmol/L Normal 9-16 [facility] Comment on above: Performed By: #### C DP, CMPX #### [address] [address] Sql Report Developer: Michael Chen MD AST [Catalytic activity/Vol] 27 U/L Normal 10-35 [facility] Comment on above: Performed By: #### C DP, CMPX #### [address] [address] Sql Report Developer: Michael Chen MD Bilirubin [Mass/Vol] 0.2 mg/dL Normal 0.00-1.20 [facility] Comment on above: Performed By: #### C DP, CMPX #### [address] [address] Sql Report Developer: Michael Chen MD Calcium [Mass/Vol] 8.0 mg/dL Low 8.6-10.4 [facility] Comment on above: Performed By: #### C DP, CMPX #### [facility] [employer] [address] [place] [address] Sql Report Developer: Michael Chen MD Chloride [Moles/Vol] 101 mmol/L Normal 98-107 [facility] Comment on above: Performed By: #### C DP, CMPX #### [facility] [address] [place] [address] Sql Report Developer: Michael Chen MD CO2 [Moles/Vol] 19 mmol/L Low 20-31 [facility] Comment on above: Performed By: #### C DP, CMPX #### [facility] [employer] [address] [place] [address] Sql Report Developer: Michael Chen MD Creatinine [Mass/Vol] 1.6 mg/dL High 0.50-0.90 [facility] Comment on above: Performed By: #### C DP, CMPX #### [address] [address] Sql Report Developer: Michael Chen MD GFR/1.73 sq M.predicted among non-blacks MDRD (S/P/Bld) [Vol rate/Area] 38 mL/min/{1.73_m2} Low >60 [facility] Comment on above: Result Comment: These [...] Performed By: #### C DP, CMPX #### [facility] [employer] [address] [place] [address] Sql Report Developer: Michael Chen MD Glucose [Mass/Vol] 90 mg/dL Normal 74-99 [facility] Comment on above: Performed By: #### C DP, CMPX #### [address] [address] Sql Report Developer: Michael Chen MD Potassium [Moles/Vol] 4.4 mmol/L Normal 3.7-5.3 [facility] Comment on above: Performed By: #### C DP, CMPX #### [address] [address] Sql Report Developer: Michael Chen MD Protein [Mass/Vol] 5.4 g/dL Low 6.6-8.7 [facility] Comment on above: Performed By: #### C DP, CMPX #### [address] [address] Sql Report Developer: Michael Chen MD Sodium [Moles/Vol] 131 mmol/L Low 136-145 [facility] Comment on above: Performed By: #### C DP, CMPX #### [address] [address] Sql Report Developer: Michael Chen MD Urea nitrogen [Mass/Vol] 46 mg/dL High 8-23 [facility] Comment on above: Performed By: #### C DP, CMPX #### [address] [address] Sql Report Developer: Michael Chen MD Magnesiumon 01-29-2024 Magnesium [Mass/Vol] 2.1 mg/dL Normal 1.6-2.4 [facility] Comment on above: Performed By: #### M G #### [address] [address] Sql Report Developer: Michael Chen MD Basic Metab w/rfx MGon 01-27 Anion gap [Moles/Vol] 10 mmol/L Normal 9-16 [facility] Comment on above: Performed By: #### C DP, CMPX #### [facility] [employer] [address] [place] [address] Sql Report Developer: Michael Chen MD Calcium [Mass/Vol] 7.5 mg/dL Low 8.6-10.4 [facility] Comment on above: Performed By: #### C DP, CMPX #### [facility] [employer] [address] [place] [address] Sql Report Developer: Michael Chen MD Chloride [Moles/Vol] 101 mmol/L Normal 98-107 [facility] Comment on above: Performed By: #### C DP, CMPX #### [facility] [employer] [address] [place] [address] Sql Report Developer: Michael Chen MD CO2 [Moles/Vol] 22 mmol/L Normal 20-31 [facility] Comment on above: Performed By: #### C DP, CMPX #### [facility] [employer] [address] [place] [address] Sql Report Developer: Michael Chen MD Creatinine [Mass/Vol] 1.8 mg/dL High 0.50-0.90 [facility] Comment on above: Performed By: #### C DP, CMPX #### [address] [address] Sql Report Developer: Michael Chen MD GFR/1.73 sq M.predicted among non-blacks MDRD (S/P/Bld) [Vol rate/Area] 33 mL/min/{1.73_m2} Low >60 [facility] Comment on above: Result Comment: These [...] Performed By: #### C DP, CMPX #### [address] [address] Sql Report Developer: Michael Chen MD Glucose [Mass/Vol] 92 mg/dL Normal 74-99 [facility] Comment on above: Performed By: #### C DP, CMPX #### [place] [address] Sql Report Developer: Michael Chen MD Potassium [Moles/Vol] 4.6 mmol/L Normal 3.7-5.3 [facility] Comment on above: Performed By: #### C DP, CMPX #### [place] [address] Sql Report Developer: Michael Chen MD Sodium [Moles/Vol] 133 mmol/L Low 136-145 [facility] Comment on above: Performed By: #### C DP CMPX #### [place] [address] Sql Report Developer: Michael Chen MD Urea nitrogen [Mass/Vol] 46 mg/dL High 8-23 [facility] Comment on above: Performed By: #### C DP CMPX #### [place] [address] Sql Report Developer: Michael Chen MD CBC with Diffon 01-28-2024 Abs. Basophil <0.03 Normal 0.00-0.20 [facility] Comment on above: Performed By: #### C DP, CMPX #### [facility] [employer] [address] [place] [address] Sql Report Developer: Michael Chen MD Abs.Imm.Granulocyte 0.13 k/uL Normal 0.00-0.30 [facility] Comment on above: Performed By: #### C DP, CMPX #### [address] [address] Sql Report Developer: Michael Chen MD Abs.Neutrophil (Seg) 4.37 k/uL Normal 1.50-8.10 [facility] Comment on above: Performed By: #### C DP, CMPX #### [address] [address] Sql Report Developer: Michael Chen MD Basophils/100 WBC (Bld) 0 % Normal 0-2 [facility] Comment on above: Performed By: #### C DP, CMPX #### [address] [address] Sql Report Developer: Michael Chen MD Eosinophils (Bld) [#/Vol] 0.25 10*3/uL Normal 0.00-0.44 [facility] Comment on above: Performed By: #### C DP, CMPX #### [place] [address] Sql Report Developer: Michael Chen MD Eosinophils/100 WBC (Bld) 4 % Normal 1-4 [facility] Comment on above: Performed By: #### C DP, CMPX #### [address] [address] Sql Report Developer: Michael Chen MD Immature granulocytes/100 WBC (Bld) 2 % High 0 [facility] Comment on above: Performed By: #### C DP, CMPX #### [address] [address] Sql Report Developer: Michael Chen MD Lymphocytes (Bld) [#/Vol] 1.15 10*3/uL Normal 1.10-3.70 [facility] Comment on above: Performed By: #### C DP, CMPX #### [place] [address] Sql Report Developer: Michael Chen MD Lymphocytes/100 WBC (Bld) 18 % Low 24-43 [facility] Comment on above: Performed By: #### C DP, CMPX #### [address] [address] Sql Report Developer: Michael Chen MD Monocytes (Bld) [#/Vol] 0.59 10*3/uL Normal 0.10-1.20 [facility] Comment on above: Performed By: #### C DP, CMPX #### [address] [address] Sql Report Developer: Michael Chen MD Monocytes/100 WBC (Bld) 9 % Normal 3-12 [facility] Comment on above: Performed By: #### C DP, CMPX #### [address] [address] Sql Report Developer: Michael Chen MD Neutrophil (Seg) 67 % High 36-65 [facility] Comment on above: Performed By: #### C DP, CMPX #### [address] [address] Sql Report Developer: Michael Chen MD Erythrocyte distribution width (RBC) [Ratio] 13.6 % Normal 11.8-14.4 [facility] Comment on above: Performed By: #### C DP, CMPX #### [address] [address] Sql Report Developer: Michael Chen MD Hematocrit (Bld) [Volume fraction] 24.0 % Low 36.3-47.1 [facility] Comment on above: Performed By: #### C DP, CMPX #### [facility] [employer] [address] [place] [address] Sql Report Developer: Michael Chen MD Hemoglobin (Bld) [Mass/Vol] 7.1 g/dL Low 11.9-15.1 [facility] Comment on above: Performed By: #### C DP, CMPX #### [address] [address] Sql Report Developer: Michael Chen MD MCH (RBC) [Entitic mass] 29.6 pg Normal 25.2-33.5 [facility] Comment on above: Performed By: #### C DP, CMPX #### [address] [address] Sql Report Developer: Michael Chen MD MCHC (RBC) [Mass/Vol] 29.6 g/dL Normal 28.4-34.8 [facility] Comment on above: Performed By: #### C DP, CMPX #### [place] [address] Sql Report Developer: Michael Chen MD MCV (RBC) [Entitic vol] 100.0 fL Normal 82.6-102.9 [facility] Comment on above: Performed By: #### C DP, CMPX #### [address] [address] Sql Report Developer: Michael Chen MD NRBC Automated 0.0 per 100 WBC Normal 0.0 [facility] Comment on above: Performed By: #### C DP, CMPX #### [place] [address] Sql Report Developer: Michael Chen MD Platelet mean volume (Bld) [Entitic vol] 9.2 fL Normal 8.1-13.5 [facility] Comment on above: Performed By: #### C DP, CMPX #### [address] [address] Sql Report Developer: Michael Chen MD Platelets (Bld) [#/Vol] 222 10*3/uL Normal 138-453 [facility] Comment on above: Performed By: #### C DP, CMPX #### [address] [address] Sql Report Developer: Michael Chen MD RBC (Bld) [#/Vol] 2.40 10*6/uL Low 3.95-5.11 [facility] Comment on above: Performed By: #### C DP, CMPX #### [address] [address] Sql Report Developer: Michael Chen MD WBC (Bld) [#/Vol] 6.5 10*3/uL Normal 3.5-11.3 [facility] Comment on above: Performed By: #### C DP, CMPX #### [address] [address] Sql Report Developer: Michael Chen MD Magnesiumon 01-28-2024 Magnesium [Mass/Vol] 1.6 mg/dL Normal 1.6-2.4 [facility] Comment on above: Performed By: #### C DP, CMPX #### [address] [address] Sql Report Developer: Michael Chen MD Basic Metab w/rfx MGon 01-26 Anion gap [Moles/Vol] 11 mmol/L Normal 9-16 [facility] Comment on above: Performed By: #### C DP, CMPX #### [address] [address] Sql Report Developer: Michael Chen MD Calcium [Mass/Vol] 7.4 mg/dL Low 8.6-10.4 [facility] Comment on above: Performed By: #### C DP, CMPX #### [address] [address] Sql Report Developer: Michael Chen MD Chloride [Moles/Vol] 102 mmol/L Normal 98-107 [facility] Comment on above: Performed By: #### C DP, CMPX #### [address] [address] Sql Report Developer: Michael Chen MD CO2 [Moles/Vol] 21 mmol/L Normal 20-31 [facility] Comment on above: Performed By: #### C DP, CMPX #### [address] [address] Sql Report Developer: Michael Chen MD Creatinine [Mass/Vol] 1.6 mg/dL High 0.50-0.90 [facility] Comment on above: Performed By: #### C DP, CMPX #### [address] [address] Sql Report Developer: Michael Chen MD GFR/1.73 sq M.predicted among non-blacks MDRD (S/P/Bld) [Vol rate/Area] 36 mL/min/{1.73_m2} Low >60 [facility] Comment on above: Result Comment: These [...] Performed By: #### C DP, CMPX #### [address] [address] Sql Report Developer: Michael Chen MD Glucose [Mass/Vol] 169 mg/dL High 74-99 [facility] Comment on above: Performed By: #### C DP, CMPX #### [address] [address] Sql Report Developer: Michael Chen MD Potassium [Moles/Vol] 4.4 mmol/L Normal 3.7-5.3 [facility] Comment on above: Performed By: #### C DP, CMPX #### [place] [address] Sql Report Developer: Michael Chen MD Sodium [Moles/Vol] 134 mmol/L Low 136-145 [facility] Comment on above: Performed By: #### C DP, CMPX #### [place] [address] Sql Report Developer: Michael Chen MD Urea nitrogen [Mass/Vol] 42 mg/dL High 8-23 [facility] Comment on above: Performed By: #### C DP, CMPX #### [place] [address] Sql Report Developer: Michael Chen MD CBC with Diffon 01-27-2024 Abs. Basophil <0.03 Normal 0.00-0.20 [facility] Comment on above: Performed By: #### C DP, CMPX #### [place] [address] Sql Report Developer: Michael Chen MD Abs.Imm.Granulocyte 0.06 k/uL Normal 0.00-0.30 [facility] Comment on above: Performed By: #### C DP, CMPX #### [place] [address] Sql Report Developer: Michael Chen MD Abs.Neutrophil (Seg) 5.93 k/uL Normal 1.50-8.10 [facility] Comment on above: Performed By: #### C DP, CMPX #### [place] [address] Sql Report Developer: Michael Chen MD Basophils/100 WBC (Bld) 0 % Normal 0-2 [facility] Comment on above: Performed By: #### C DP, CMPX #### [address] [address] Sql Report Developer: Michael Chen MD Eosinophils (Bld) [#/Vol] 0.17 10*3/uL Normal 0.00-0.44 [facility] Comment on above: Performed By: #### C DP, CMPX #### [address] [address] Sql Report Developer: Michael Chen MD Eosinophils/100 WBC (Bld) 2 % Normal 1-4 [facility] Comment on above: Performed By: #### C DP, CMPX #### [place] [address] Sql Report Developer: Michael Chen MD Erythrocyte distribution width (RBC) [Ratio] 13.8 % Normal 11.8-14.4 [facility] Comment on above: Performed By: #### C DP, CMPX #### [place] [address] Sql Report Developer: Michael Chen MD Hematocrit (Bld) [Volume fraction] 26.3 % Low 36.3-47.1 [facility] Comment on above: Performed By: #### C DP, CMPX #### [address] [address] Sql Report Developer: Michael Chen MD Hemoglobin (Bld) [Mass/Vol] 7.8 g/dL Low 11.9-15.1 [facility] Comment on above: Performed By: #### C DP, CMPX #### [address] [address] Sql Report Developer: Michael Chen MD Immature granulocytes/100 WBC (Bld) 1 % High 0 [facility] Comment on above: Performed By: #### C DP, CMPX #### [address] [address] Sql Report Developer: Michael Chen MD Lymphocytes (Bld) [#/Vol] 0.79 10*3/uL Low 1.10-3.70 [facility] Comment on above: Performed By: #### C DP, CMPX #### [address] [address] Sql Report Developer: Michael Chen MD Lymphocytes/100 WBC (Bld) 11 % Low 24-43 [facility] Comment on above: Performed By: #### C DP, CMPX #### [place] [address] Sql Report Developer: Michael Chen MD MCH (RBC) [Entitic mass] 29.8 pg Normal 25.2-33.5 [facility] Comment on above: Performed By: #### C DP, CMPX #### [place] [address] Sql Report Developer: Michael Chen MD MCHC (RBC) [Mass/Vol] 29.7 g/dL Normal 28.4-34.8 [facility] Comment on above: Performed By: #### C DP, CMPX #### [address] [address] Sql Report Developer: Michael Chen MD MCV (RBC) [Entitic vol] 100.4 fL Normal 82.6-102.9 [facility] Comment on above: Performed By: #### C DP, CMPX #### [address] [address] Sql Report Developer: Michael Chen MD Monocytes (Bld) [#/Vol] 0.38 10*3/uL Normal 0.10-1.20 [facility] Comment on above: Performed By: #### C DP, CMPX #### [address] [address] Sql Report Developer: Michael Chen MD Monocytes/100 WBC (Bld) 5 % Normal 3-12 [facility] Comment on above: Performed By: #### C DP, CMPX #### [address] [address] Sql Report Developer: Michael Chen MD Neutrophil (Seg) 81 % High 36-65 [facility] Comment on above: Performed By: #### C DP, CMPX #### [address] [address] Sql Report Developer: Michael Chen MD NRBC Automated 0.0 per 100 WBC Normal 0.0 [facility] Comment on above: Performed By: #### C DP, CMPX #### [address] [address] Sql Report Developer: Michael Chen MD Platelet mean volume (Bld) [Entitic vol] 9.6 fL Normal 8.1-13.5 [facility] Comment on above: Performed By: #### C DP, CMPX #### [address] [address] Sql Report Developer: Michael Chen MD Platelets (Bld) [#/Vol] 239 10*3/uL Normal 138-453 [facility] Comment on above: Performed By: #### C DP, CMPX #### [address] [address] Sql Report Developer: Michael Chen MD RBC (Bld) [#/Vol] 2.62 10*6/uL Low 3.95-5.11 [facility] Comment on above: Performed By: #### C DP, CMPX #### [address] [address] Sql Report Developer: Michael Chen MD WBC (Bld) [#/Vol] 7.3 10*3/uL Normal 3.5-11.3 [facility] Comment on above: Performed By: #### C DP, CMPX #### [facility] [address] [place] [id number] Sql Report Developer: Michael Chen MD CT CERVICAL SPINE WO [...] Alex Hickman MD 01/27/24 Final result Normal [facility] Basic Metab w/rfx MGon 01-25 Anion gap [Moles/Vol] 8 mmol/L Low 9-16 [facility] Comment on above: Performed By: #### B MPX, CDP #### [address] [address] Sql Report Developer: Michael Chen MD Calcium [Mass/Vol] 7.8 mg/dL Low 8.6-10.4 [facility] Comment on above: Performed By: #### B MPX, CDP #### [address] [address] Sql Report Developer: Michael Chen MD Chloride [Moles/Vol] 104 mmol/L Normal 98-107 [facility] Comment on above: Performed By: #### B MPX, CDP #### [facility] [address] [place] [address] Sql Report Developer: Michael Chen MD CO2 [Moles/Vol] 23 mmol/L Normal 20-31 [facility] Comment on above: Performed By: #### B MPX, CDP #### [facility] [address] [place] [address] Sql Report Developer: Michael Chen MD Creatinine [Mass/Vol] 1.6 mg/dL High 0.50-0.90 [facility] Comment on above: Performed By: #### B MPX, CDP #### [facility] [address] [place] [address] Sql Report Developer: Michael Chen MD GFR/1.73 sq M.predicted among non-blacks MDRD (S/P/Bld) [Vol rate/Area] 38 mL/min/{1.73_m2} Low >60 [facility] Comment on above: Result Comment: These [...] Performed By: #### B MPX, CDP #### [facility] [address] [place] [address] Sql Report Developer: Michael Chen MD Glucose [Mass/Vol] 109 mg/dL High 74-99 [facility] Comment on above: Performed By: #### B MPX, CDP #### [facility] [address] [place] [address] Sql Report Developer: Michael Chen MD Potassium [Moles/Vol] 5.3 mmol/L Normal 3.7-5.3 [facility] Comment on above: Performed By: #### B MPX, CDP #### [facility] [address] [place] [address] Sql Report Developer: Michael Chen MD Sodium [Moles/Vol] 135 mmol/L Low 136-145 [facility] Comment on above: Performed By: #### B MPX, CDP #### [facility] [address] [place] [address] Sql Report Developer: Michael Chen MD Urea nitrogen [Mass/Vol] 40 mg/dL High 8-23 [facility] Comment on above: Performed By: #### B MPX, CDP #### [facility] [address] [place] [address] Sql Report Developer: Michael Chen MD Anion gap [Moles/Vol] 11 mmol/L Normal 9-16 [facility] Comment on above: Performed By: #### B MPX, CDP #### [facility] [address] [place] [address] Sql Report Developer: Michael Chen MD Calcium [Mass/Vol] 7.6 mg/dL Low 8.6-10.4 [facility] Comment on above: Performed By: #### B MPX, CDP #### [facility] [address] [place] [address] Sql Report Developer: Michael Chen MD Chloride [Moles/Vol] 102 mmol/L Normal 98-107 [facility] Comment on above: Performed By: #### B MPX, CDP #### [facility] [address] [place] [address] Sql Report Developer: Michael Chen MD CO2 [Moles/Vol] 20 mmol/L Normal 20-31 [facility] Comment on above: Performed By: #### B MPX, CDP #### [facility] [address] [place] [address] Sql Report Developer: Michael Chen MD Creatinine [Mass/Vol] 1.7 mg/dL High 0.50-0.90 [facility] Comment on above: Performed By: #### B MPX, CDP #### [address] [address] Sql Report Developer: Michael Chen MD GFR/1.73 sq M.predicted among non-blacks MDRD (S/P/Bld) [Vol rate/Area] 35 mL/min/{1.73_m2} Low >60 [facility] Comment on above: Result Comment: These [...] Performed By: #### B MPX, CDP #### [facility] [address] [place] [address] Sql Report Developer: Michael Chen MD Glucose [Mass/Vol] 106 mg/dL High 74-99 [facility] Comment on above: Performed By: #### B MPX, CDP #### [facility] [address] [place] [address] Sql Report Developer: Michael Chen MD Potassium [Moles/Vol] 5.0 mmol/L Normal 3.7-5.3 [facility] Comment on above: Performed By: #### B MPX, CDP #### [facility] [address] [place] [address] Sql Report Developer: Michael Chen MD Sodium [Moles/Vol] 133 mmol/L Low 136-145 [facility] Comment on above: Performed By: #### B MPX, CDP #### [facility] [address] [place] [address] Sql Report Developer: Michael Chne MD Urea nitrogen [Mass/Vol] 46 mg/dL High 8-23 [facility] Comment on above: Performed By: #### B MPX, CDP #### [facility] [address] [address] Sql Report Developer: Michael Chen MD CBC with Diffon 01-26-2024 Abs. Basophil <0.03 Normal 0.00-0.20 [facility] Comment on above: Performed By: #### B MPX, CDP #### [facility] [address] [place] [address] Sql Report Developer: Michael Chen MD Abs.Imm.Granulocyte 0.13 k/uL Normal 0.00-0.30 [facility] Comment on above: Performed By: #### B MPX, CDP #### [facility] [address] [place] [address] Sql Report Developer: Michael Chen MD Abs.Neutrophil (Seg) 8.21 k/uL High 1.50-8.10 [facility] Comment on above: Performed By: #### B MPX, CDP #### [address] [address] Sql Report Developer: Michael Chen MD Basophils/100 WBC (Bld) 0 % Normal 0-2 [facility] Comment on above: Performed By: #### B MPX, CDP #### [address] [address] Sql Report Developer: Michael Chen MD Eosinophils (Bld) [#/Vol] 0.19 10*3/uL Normal 0.00-0.44 [facility] Comment on above: Performed By: #### B MPX, CDP #### [address] [address] Sql Report Developer: Michael Chen MD Eosinophils/100 WBC (Bld) 2 % Normal 1-4 [facility] Comment on above: Performed By: #### B MPX, CDP #### [facility] [address] [place] [address] Sql Report Developer: Michael Chen MD Erythrocyte distribution width (RBC) [Ratio] 13.9 % Normal 11.8-14.4 [facility] Comment on above: Performed By: #### B MPX, CDP #### [facility] [address] [place] [address] Sql Report Developer: Michael Chen MD Hematocrit (Bld) [Volume fraction] 28.3 % Low 36.3-47.1 [facility] Comment on above: Performed By: #### B MPX, CDP #### [facility] [address] [place] [address] Sql Report Developer: Michael Chen MD Hemoglobin (Bld) [Mass/Vol] 8.6 g/dL Low 11.9-15.1 [facility] Comment on above: Performed By: #### B MPX, CDP #### [facility] [address] [place] [address] Sql Report Developer: Michael Chen MD Immature granulocytes/100 WBC (Bld) 1 % High 0 [facility] Comment on above: Performed By: #### B MPX, CDP #### [address] [address] Sql Report Developer: Michael Chen MD Lymphocytes (Bld) [#/Vol] 1.09 10*3/uL Low 1.10-3.70 [facility] Comment on above: Performed By: #### B MPX, CDP #### [address] [address] Sql Report Developer: Michael Chen MD Lymphocytes/100 WBC (Bld) 10 % Low 24-43 [facility] Comment on above: Performed By: #### B MPX, CDP #### [address] [address] Sql Report Developer: Michael Chen MD MCH (RBC) [Entitic mass] 29.5 pg Normal 25.2-33.5 [facility] Comment on above: Performed By: #### B MPX, CDP #### [address] [address] Sql Report Developer: Michael Chen MD MCHC (RBC) [Mass/Vol] 30.4 g/dL Normal 28.4-34.8 [facility] Comment on above: Performed By: #### B MPX, CDP #### [address] [address] Sql Report Developer: Michael Chen MD MCV (RBC) [Entitic vol] 96.9 fL Normal 82.6-102.9 [facility] Comment on above: Performed By: #### B MPX, CDP #### [address] [address] Sql Report Developer: Michael Chen MD Monocytes (Bld) [#/Vol] 0.85 10*3/uL Normal 0.10-1.20 [facility] Comment on above: Performed By: #### B MPX, CDP #### [address] [address] Sql Report Developer: Michael Chen MD Monocytes/100 WBC (Bld) 8 % Normal 3-12 [facility] Comment on above: Performed By: #### B MPX, CDP #### [address] [address] Sql Report Developer: Michael Chen MD Neutrophil (Seg) 79 % High 36-65 [facility] Comment on above: Performed By: #### B MPX, CDP #### [address] [address] Sql Report Developer: Michael Chen MD NRBC Automated 0.0 per 100 WBC Normal 0.0 [facility] Comment on above: Performed By: #### B MPX, CDP #### [address] [address] Sql Report Developer: Michael Chen MD Platelet mean volume (Bld) [Entitic vol] 9.7 fL Normal 8.1-13.5 [facility] Comment on above: Performed By: #### B MPX, CDP #### [address] [address] Sql Report Developer: Michael Chen MD Platelets (Bld) [#/Vol] 270 10*3/uL Normal 138-453 [facility] Comment on above: Performed By: #### B MPX, CDP #### [facility] [address] [place] [address] Sql Report Developer: Michael Chen MD RBC (Bld) [#/Vol] 2.92 10*6/uL Low 3.95-5.11 [facility] Comment on above: Performed By: #### B MPX, CDP #### [facility] [address] [place] [address] Sql Report Developer: Michael Chen MD WBC (Bld) [#/Vol] 10.5 10*3/uL Normal 3.5-11.3 [facility] Comment on above: Performed By: #### B MPX, CDP #### [facility] [address] [place] [address] Sql Report Developer: Michael Chen MD Abs. Basophil 0.03 k/uL Normal 0.00-0.20 [facility] Comment on above: Performed By: #### B MPX, CDP #### [facility] [address] [place] [address] Sql Report Developer: Michael Chen MD Abs.Imm.Granulocyte 0.08 k/uL Normal 0.00-0.30 [facility] Comment on above: Performed By: #### B MPX, CDP #### [address] [address] Sql Report Developer: Michael Chen MD Abs.Neutrophil (Seg) 12.75 k/uL High 1.50-8.10 [facility] Comment on above: Performed By: #### B MPX, CDP #### [facility] [address] [place] [address] Sql Report Developer: Michael Chen MD Basophils/100 WBC (Bld) 0 % Normal 0-2 [facility] Comment on above: Performed By: #### B MPX, CDP #### [facility] [address] [place] [address] Sql Report Developer: Michael Chen MD Eosinophils (Bld) [#/Vol] 0.16 10*3/uL Normal 0.00-0.44 [facility] Comment on above: Performed By: #### B MPX, CDP #### [facility] [address] [place] [address] Sql Report Developer: Michael Chen MD Eosinophils/100 WBC (Bld) 1 % Normal 1-4 [facility] Comment on above: Performed By: #### B MPX, CDP #### [address] [address] Sql Report Developer: Michael Chen MD Erythrocyte distribution width (RBC) [Ratio] 13.7 % Normal 11.8-14.4 [facility] Comment on above: Performed By: #### B MPX, CDP #### [facility] [address] [address] Sql Report Developer: Michael Chen MD Hematocrit (Bld) [Volume fraction] 28.8 % Low 36.3-47.1 [facility] Comment on above: Performed By: #### B MPX, CDP #### [facility] [address] [place] [address] Sql Report Developer: Michael Chen MD Hemoglobin (Bld) [Mass/Vol] 8.8 g/dL Low 11.9-15.1 [facility] Comment on above: Performed By: #### B MPX, CDP #### [facility] [address] [place] [address] Sql Report Developer: Michael Chen MD Immature granulocytes/100 WBC (Bld) 1 % High 0 [facility] Comment on above: Performed By: #### B MPX, CDP #### [facility] [address] [place] [address] Sql Report Developer: Michael Chen MD Lymphocytes (Bld) [#/Vol] 1.15 10*3/uL Normal 1.10-3.70 [facility] Comment on above: Performed By: #### B MPX, CDP #### [address] [address] Sql Report Developer: Michael Chen MD Lymphocytes/100 WBC (Bld) 8 % Low 24-43 [facility] Comment on above: Performed By: #### B MPX, CDP #### [address] [address] Sql Report Developer: Michael Chen MD MCH (RBC) [Entitic mass] 29.6 pg Normal 25.2-33.5 [facility] Comment on above: Performed By: #### B MPX, CDP #### [address] [address] Sql Report Developer: Michael Chen MD MCHC (RBC) [Mass/Vol] 30.6 g/dL Normal 28.4-34.8 [facility] Comment on above: Performed By: #### B MPX, CDP #### [address] [address] Sql Report Developer: Michael Chen MD MCV (RBC) [Entitic vol] 97.0 fL Normal 82.6-102.9 [facility] Comment on above: Performed By: #### B MPX, CDP #### [address] [address] Sql Report Developer: Michael Chen MD Monocytes (Bld) [#/Vol] 0.77 10*3/uL Normal 0.10-1.20 [facility] Comment on above: Performed By: #### B MPX, CDP #### [address] [address] Sql Report Developer: Michael Chen MD Monocytes/100 WBC (Bld) 5 % Normal 3-12 [facility] Comment on above: Performed By: #### B MPX, CDP #### [address] [address] Sql Report Developer: Michael Chen MD Neutrophil (Seg) 85 % High 36-65 [facility] Comment on above: Performed By: #### B MPX, CDP #### [address] [address] Sql Report Developer: Michael Chen MD NRBC Automated 0.0 per 100 WBC Normal 0.0 [facility] Comment on above: Performed By: #### B MPX, CDP #### [address] [address] Sql Report Developer: Michael Chen MD Platelet mean volume (Bld) [Entitic vol] 9.1 fL Normal 8.1-13.5 [facility] Comment on above: Performed By: #### B MPX, CDP #### [address] [address] Sql Report Developer: Michael Chen MD Platelets (Bld) [#/Vol] 269 10*3/uL Normal 138-453 [facility] Comment on above: Performed By: #### B MPX, CDP #### [address] [address] Sql Report Developer: Michael Chen MD RBC (Bld) [#/Vol] 2.97 10*6/uL Low 3.95-5.11 [facility] Comment on above: Performed By: #### B MPX, CDP #### [address] [address] Sql Report Developer: Michael Chen MD WBC (Bld) [#/Vol] 14.9 10*3/uL High 3.5-11.3 [facility] Comment on above: Performed By: #### B MPX, CDP #### [facility] [address] [place] [phone] Sql Report Developer: Michael Chen MD Cult,Urineon 01-26-2024 Cult,Urine Specimen Description .INDWELLING CATH URINE Special Requests FIRST INSERTION Culture NO GROWTH Report Status FINAL 01/26/2024 Normal [facility] Comment on above: Performed By: #### U RC #### [address] [address] Sql Report Developer: Michael Chen MD XR CERVICAL SPINE (2-3 [...] DO 01/26/24 Edited Result - FINAL Normal [facility] Basic Metab w/rfx MGon 01-24 Anion gap [Moles/Vol] 9 mmol/L Normal 9-16 [facility] Comment on above: Performed By: #### C DP, BMPX #### [facility] [address] [place] [address] Sql Report Developer: Michael Chen MD Calcium [Mass/Vol] 7.9 mg/dL Low 8.6-10.4 [facility] Comment on above: Performed By: #### C DP, BMPX #### [facility] [address] [place] [address] Sql Report Developer: Michael Chen MD Chloride [Moles/Vol] 105 mmol/L Normal 98-107 [facility] Comment on above: Performed By: #### C DP, BMPX #### [facility] [address] [place] [address] Sql Report Developer: Michael Chen MD CO2 [Moles/Vol] 22 mmol/L Normal 20-31 [facility] Comment on above: Performed By: #### C DP, BMPX #### [address] [address] Sql Report Developer: Michael Chen MD Creatinine [Mass/Vol] 1.7 mg/dL High 0.50-0.90 [facility] Comment on above: Performed By: #### C DP, BMPX #### [address] [address] Sql Report Developer: Michael Chen MD GFR/1.73 sq M.predicted among non-blacks MDRD (S/P/Bld) [Vol rate/Area] 33 mL/min/{1.73_m2} Low >60 [facility] Comment on above: Result Comment: These [...] Performed By: #### C DP, BMPX #### [facility] [address] [place] [address] Sql Report Developer: Michael Chen MD Glucose [Mass/Vol] 104 mg/dL High 74-99 [facility] Comment on above: Performed By: #### C DP, BMPX #### [address] [address] Sql Report Developer: Michael Chen MD Potassium [Moles/Vol] 5.1 mmol/L Normal 3.7-5.3 [facility] Comment on above: Performed By: #### C DP, BMPX #### [address] [address] Sql Report Developer: Michael Chen MD Sodium [Moles/Vol] 136 mmol/L Normal 136-145 [facility] Comment on above: Performed By: #### C OBIE, BMPX #### [address] [address] Sql Report Developer: Michael Chen MD Urea nitrogen [Mass/Vol] 51 mg/dL High 8-23 [facility] Comment on above: Performed By: #### C OBIE BMPX #### [address] [address] Sql Report Developer: Michael Chen MD CBC with Diffon 01-25-2024 Abs. Basophil <0.03 Normal 0.00-0.20 [facility] Comment on above: Performed By: #### C DP, BMPX #### [facility] [address] [place] [address] Sql Report Developer: Michael Chen MD Abs.Imm.Granulocyte 0.03 k/uL Normal 0.00-0.30 [facility] Comment on above: Performed By: #### C DP, BMPX #### [facility] [address] [place] [address] Sql Report Developer: Michael Chen MD Abs.Neutrophil (Seg) 3.64 k/uL Normal 1.50-8.10 [facility] Comment on above: Performed By: #### C DP, BMPX #### [place] [address] Sql Report Developer: Michael Chen MD Basophils/100 WBC (Bld) 0 % Normal 0-2 [facility] Comment on above: Performed By: #### C DP, BMPX #### [place] [address] Sql Report Developer: Michael Chen MD Eosinophils (Bld) [#/Vol] 0.23 10*3/uL Normal 0.00-0.44 [facility] Comment on above: Performed By: #### C DP, BMPX #### [place] [address] Sql Report Developer: Michael Chen MD Eosinophils/100 WBC (Bld) 4 % Normal 1-4 [facility] Comment on above: Performed By: #### C DP, BMPX #### [place] [address] Sql Report Developer: Michael Chen MD Erythrocyte distribution width (RBC) [Ratio] 13.7 % Normal 11.8-14.4 [facility] Comment on above: Performed By: #### C DP, BMPX #### [place] [address] Sql Report Developer: Michael Chen MD Hematocrit (Bld) [Volume fraction] 26.8 % Low 36.3-47.1 [facility] Comment on above: Performed By: #### C DP, BMPX #### [place] [address] Sql Report Developer: Michael Chen MD Hemoglobin (Bld) [Mass/Vol] 8.0 g/dL Low 11.9-15.1 [facility] Comment on above: Performed By: #### C DP, BMPX #### [address] [address] Sql Report Developer: Michael Chen MD Immature granulocytes/100 WBC (Bld) 1 % High 0 [facility] Comment on above: Performed By: #### C DP, BMPX #### [place] [address] Sql Report Developer: Michael Chen MD Lymphocytes (Bld) [#/Vol] 1.38 10*3/uL Normal 1.10-3.70 [facility] Comment on above: Performed By: #### C DP, BMPX #### [place] [address] Sql Report Developer: Michael Chen MD Lymphocytes/100 WBC (Bld) 24 % Normal 24-43 [facility] Comment on above: Performed By: #### C DP, BMPX #### [address] [address] Sql Report Developer: Michael Chen MD MCH (RBC) [Entitic mass] 29.3 pg Normal 25.2-33.5 [facility] Comment on above: Performed By: #### C DP, BMPX #### [address] [address] Sql Report Developer: Michael Chen MD MCHC (RBC) [Mass/Vol] 29.9 g/dL Normal 28.4-34.8 [facility] Comment on above: Performed By: #### C DP, BMPX #### [place] [address] Sql Report Developer: Michael Chen MD MCV (RBC) [Entitic vol] 98.2 fL Normal 82.6-102.9 [facility] Comment on above: Performed By: #### C DP, BMPX #### [address] [address] Sql Report Developer: Michael Chen MD Monocytes (Bld) [#/Vol] 0.58 10*3/uL Normal 0.10-1.20 [facility] Comment on above: Performed By: #### C DP, BMPX #### [address] [address] Sql Report Developer: Michael Chen MD Monocytes/100 WBC (Bld) 10 % Normal 3-12 [facility] Comment on above: Performed By: #### C DP, BMPX #### [address] [address] Sql Report Developer: Michael Chen MD Neutrophil (Seg) 61 % Normal 36-65 [facility] Comment on above: Performed By: #### C DP, BMPX #### [address] [address] Sql Report Developer: Michael Chen MD NRBC Automated 0.0 per 100 WBC Normal 0.0 [facility] Comment on above: Performed By: #### C DP, BMPX #### [address] [address] Sql Report Developer: Michael Chen MD Platelet mean volume (Bld) [Entitic vol] 9.1 fL Normal 8.1-13.5 [facility] Comment on above: Performed By: #### C DP, BMPX #### [address] [address] Sql Report Developer: Michael Chen MD Platelets (Bld) [#/Vol] 227 10*3/uL Normal 138-453 [facility] Comment on above: Performed By: #### C DP, BMPX #### [address] [address] Sql Report Developer: Michael Chen MD RBC (Bld) [#/Vol] 2.73 10*6/uL Low 3.95-5.11 [facility] Comment on above: Performed By: #### C DP, BMPX #### [address] [address] Sql Report Developer: Michael Chen MD WBC (Bld) [#/Vol] 5.9 10*3/uL Normal 3.5-11.3 [facility] Comment on above: Performed By: #### C DP, BMPX #### [address] [address] Sql Report Developer: Michael Chen MD FLUORO FOR SURGICAL PROCEDUR ESon 01-25-2024 FLUORO FOR SURGICAL PROCEDURES Radiology exam is complete. No Radiologist dictation. Please follow up with ordering provider. Final result Normal [facility] Hgb/Hcton 01-25-2024 Hematocrit (Bld) [Volume fraction] 30.8 % Low 36.3-47.1 [facility] Comment on above: Performed By: #### B MPX, CDP #### [address] [address] Sql Report Developer: Michael Chen MD Hemoglobin (Bld) [Mass/Vol] 9.5 g/dL Low 11.9-15.1 [facility] Comment on above: Performed By: #### B MPX, CDP #### [address] [address] Sql Report Developer: Michael Chen MD Basic Metab w/rfx MGon 01-23 Anion gap [Moles/Vol] 10 mmol/L Normal 9-16 [facility] Comment on above: Performed By: #### B MPX, CDP #### [address] [address] Sql Report Developer: Michael Chen MD Calcium [Mass/Vol] 8.2 mg/dL Low 8.6-10.4 [facility] Comment on above: Performed By: #### B MPX, CDP #### [facility] [address] [place] [address] Sql Report Developer: Michael Chen MD Chloride [Moles/Vol] 104 mmol/L Normal 98-107 [facility] Comment on above: Performed By: #### B MPX, CDP #### [facility] [address] [place] [address] Sql Report Developer: Michael Chen MD CO2 [Moles/Vol] 22 mmol/L Normal 20-31 [facility] Comment on above: Performed By: #### B MPX, CDP #### [address] [address] Sql Report Developer: Michael Chen MD Creatinine [Mass/Vol] 1.7 mg/dL High 0.50-0.90 [facility] Comment on above: Performed By: #### B MPX, CDP #### [address] [address] Sql Report Developer: Michael Chen MD GFR/1.73 sq M.predicted among non-blacks MDRD (S/P/Bld) [Vol rate/Area] 34 mL/min/{1.73_m2} Low >60 [facility] Comment on above: Result Comment: These [...] Performed By: #### B MPX, CDP #### [address] [address] Sql Report Developer: Michael Chen MD Glucose [Mass/Vol] 100 mg/dL High 74-99 [facility] Comment on above: Performed By: #### B MPX, CDP #### [facility] [address] [place] [address] Sql Report Developer: Michael Chen MD Potassium [Moles/Vol] 4.9 mmol/L Normal 3.7-5.3 [facility] Comment on above: Result Comment: SPEC IMEN SLIGHTLY HEMOLYZED, RESULTS MAY BE ADVERSELY AFFECTED. Performed By: #### B MPX, CDP #### [facility] [address] [place] [address] Sql Report Developer: Michael Chen MD Sodium [Moles/Vol] 136 mmol/L Normal 136-145 [facility] Comment on above: Performed By: #### B MPX, CDP #### [facility] [address] [place] [address] Sql Report Developer: Michael Chen MD Urea nitrogen [Mass/Vol] 51 mg/dL High 8-23 [facility] Comment on above: Performed By: #### B MPX, CDP #### [facility] [address] [place] [address] Sql Report Developer: Michael Chen MD CBC with Diffon 01-24-2024 Abs. Basophil 0.03 k/uL Normal 0.00-0.20 [facility] Comment on above: Performed By: #### B MPX, CDP #### [facility] [address] [place] [address] Sql Report Developer: Michael Chen MD Abs.Imm.Granulocyte 0.11 k/uL Normal 0.00-0.30 [facility] Comment on above: Performed By: #### B MPX, CDP #### [facility] [address] [place] [address] Sql Report Developer: Michael Chen MD Abs.Neutrophil (Seg) 3.73 k/uL Normal 1.50-8.10 [facility] Comment on above: Performed By: #### B MPX, CDP #### [facility] [address] [place] [address] Sql Report Developer: Michael Chen MD Basophils/100 WBC (Bld) 1 % Normal 0-2 [facility] Comment on above: Performed By: #### B MPX, CDP #### [facility] [address] [place] [address] Sql Report Developer: Michael Chen MD Eosinophils (Bld) [#/Vol] 0.24 10*3/uL Normal 0.00-0.44 [facility] Comment on above: Performed By: #### B MPX, CDP #### [facility] [address] [place] [address] Sql Report Developer: Michael Chen MD Eosinophils/100 WBC (Bld) 4 % Normal 1-4 [facility] Comment on above: Performed By: #### B MPX, CDP #### [facility] [address] [place] [address] Sql Report Developer: Michael Chen MD Erythrocyte distribution width (RBC) [Ratio] 13.8 % Normal 11.8-14.4 [facility] Comment on above: Performed By: #### B MPX, CDP #### [facility] [address] [place] [address] Sql Report Developer: Michael Chen MD Hematocrit (Bld) [Volume fraction] 29.4 % Low 36.3-47.1 [facility] Comment on above: Performed By: #### B MPX, CDP #### [facility] [address] [place] [address] Sql Report Developer: Michael Chen MD Hemoglobin (Bld) [Mass/Vol] 9.2 g/dL Low 11.9-15.1 [facility] Comment on above: Performed By: #### B MPX, CDP #### [facility] [address] [place] [address] Sql Report Developer: Michael Chen MD Immature granulocytes/100 WBC (Bld) 2 % High 0 [facility] Comment on above: Performed By: #### B MPX, CDP #### [facility] [address] [place] [address] Sql Report Developer: Michael Chen MD Lymphocytes (Bld) [#/Vol] 1.63 10*3/uL Normal 1.10-3.70 [facility] Comment on above: Performed By: #### B MPX, CDP #### [address] [address] Sql Report Developer: Michael Chen MD Lymphocytes/100 WBC (Bld) 25 % Normal 24-43 [facility] Comment on above: Performed By: #### B MPX, CDP #### [address] [address] Sql Report Developer: Michael Chen MD MCH (RBC) [Entitic mass] 30.8 pg Normal 25.2-33.5 [facility] Comment on above: Performed By: #### B MPX, CDP #### [address] [address] Sql Report Developer: Michael Chen MD MCHC (RBC) [Mass/Vol] 31.3 g/dL Normal 28.4-34.8 [facility] Comment on above: Performed By: #### B MPX, CDP #### [facility] [address] [place] [address] Sql Report Developer: Michael Chen MD MCV (RBC) [Entitic vol] 98.3 fL Normal 82.6-102.9 [facility] Comment on above: Performed By: #### B MPX, CDP #### [address] [address] Sql Report Developer: Michael Chen MD Monocytes (Bld) [#/Vol] 0.74 10*3/uL Normal 0.10-1.20 [facility] Comment on above: Performed By: #### B MPX, CDP #### [address] [address] Sql Report Developer: Michael Chen MD Monocytes/100 WBC (Bld) 11 % Normal 3-12 [facility] Comment on above: Performed By: #### B MPX, CDP #### [address] [address] Sql Report Developer: Michael Chen MD Neutrophil (Seg) 57 % Normal 36-65 [facility] Comment on above: Performed By: #### B MPX, CDP #### [address] [address] Sql Report Developer: Michael Chen MD NRBC Automated 0.0 per 100 WBC Normal 0.0 [facility] Comment on above: Performed By: #### B MPX, CDP #### [address] [address] Sql Report Developer: Michael Chen MD Platelet mean volume (Bld) [Entitic vol] 9.9 fL Normal 8.1-13.5 [facility] Comment on above: Performed By: #### B MPX, CDP #### [address] [address] Sql Report Developer: Michael Chen MD Platelets (Bld) [#/Vol] 234 10*3/uL Normal 138-453 [facility] Comment on above: Performed By: #### B MPX, CDP #### [address] [address] Sql Report Developer: Michael Chen MD RBC (Bld) [#/Vol] 2.99 10*6/uL Low 3.95-5.11 [facility] Comment on above: Performed By: #### B MPX, CDP #### [address] [address] Sql Report Developer: Michael Chen MD WBC (Bld) [#/Vol] 6.5 10*3/uL Normal 3.5-11.3 [facility] Comment on above: Performed By: #### B MPX, CDP #### [address] [address] Sql Report Developer: Michael Chen MD REINALDO Screen w/reflexon 2023 REINALDO Screen Negative Normal NEG [facility] Comment on above: Performed By: #### B MPX, CDP #### [facility] [address] [place] [address] Sql Report Developer: Michael Chen MD Anti-dsDNA <0.5 Normal <10.0 [facility] Comment on above: Result Comment: Reference Range: <10.0 Negative 10.0-15.0 Equivocal >15.0 Positive Performed By: #### B MPX, CDP #### [address] [address] Sql Report Developer: Michael Chen MD CHINA Screen 0.1 U/mL Normal <0.7 [facility] Comment on above: Result Comment: Reference Range: <0.7 Negative 0.7-1.0 Equivocal >1.0 Positive [place] Screen includes U1RNP,RNP70,Sm,Ro(SS-A),La(SS-B),CENP,Scl-70,Elli-1 Performed By: #### B MPX, CDP #### [address] [address] Sql Report Developer: Michael Chen MD REINALDO Screen Negative Normal NEG [facility] Comment on above: Performed By: #### C DP, CMPX #### [address] [phone] Sql Report Developer: Michael Chen MD Anti-dsDNA 0.7 IU/mL Normal <10.0 [facility] Comment on above: Result Comment: Reference Range: <10.0 Negative 10.0-15.0 Equivocal >15.0 Positive Performed By: #### C DP, CMPX #### [place] [id number] Sql Report Developer: Michael Chen MD CHINA Screen 0.2 U/mL Normal <0.7 [facility] Comment on above: Result Comment: Reference Range: <0.7 Negative 0.7-1.0 Equivocal >1.0 Positive [place] Screen includes U1RNP,RNP70,Sm,Ro(SS-A),La(SS-B),CENP,Scl-70,Elli-1 Performed By: #### C DP, CMPX #### [place] [address] Sql Report Developer: Michael Chen MD Anti CCPon 7 Anti CCP 0.6 U/mL Normal 0.0-7.0 [facility] Comment on above: Result Comment: Reference Range: <7.0 Negative 7.0-10.0 Equivocal >10.0 Positive Performed By: #### B MPX, CDP #### [place] [id number] Sql Report Developer: Michael Chen MD Basic Metab w/rfx MGon 01-22 Anion gap [Moles/Vol] 8 mmol/L Low 9-16 [facility] Comment on above: Performed By: #### B MPX, CDP #### [facility] [address] [place] [address] Sql Report Developer: Michael Chen MD Calcium [Mass/Vol] 8.2 mg/dL Low 8.6-10.4 [facility] Comment on above: Performed By: #### B MPX, CDP #### [address] [address] Sql Report Developer: Michael Chen MD Chloride [Moles/Vol] 106 mmol/L Normal 98-107 [facility] Comment on above: Performed By: #### B MPX, CDP #### [address] [address] Sql Report Developer: Michael Chen MD CO2 [Moles/Vol] 21 mmol/L Normal 20-31 [facility] Comment on above: Performed By: #### B MPX, CDP #### [address] [address] Sql Report Developer: Michael Chen MD Creatinine [Mass/Vol] 1.7 mg/dL High 0.50-0.90 [facility] Comment on above: Performed By: #### B MPX, CDP #### [address] [address] Sql Report Developer: Michael Chen MD GFR/1.73 sq M.predicted among non-blacks MDRD (S/P/Bld) [Vol rate/Area] 33 mL/min/{1.73_m2} Low >60 [facility] Comment on above: Result Comment: These [...] Performed By: #### B MPX, CDP #### [address] [address] Sql Report Developer: Michael Chen MD Glucose [Mass/Vol] 88 mg/dL Normal 74-99 [facility] Comment on above: Performed By: #### B MPX, CDP #### [address] [address] Sql Report Developer: Michael Chen MD Potassium [Moles/Vol] 4.8 mmol/L Normal 3.7-5.3 [facility] Comment on above: Performed By: #### B MPX, CDP #### [facility] [address] [place] [address] Sql Report Developer: Michael Chen MD Sodium [Moles/Vol] 135 mmol/L Low 136-145 [facility] Comment on above: Performed By: #### B MPX, CDP #### [facility] [address] [place] [address] Sql Report Developer: Michael Chen MD Urea nitrogen [Mass/Vol] 56 mg/dL High 8-23 [facility] Comment on above: Performed By: #### B MPX, CDP #### [facility] [address] [place] [address] Sql Report Developer: Michael Chen MD CBC with Diffon 01-23-2024 Abs. Basophil <0.03 Normal 0.00-0.20 [facility] Comment on above: Performed By: #### B MPX, CDP #### [facility] [address] [place] [address] Sql Report Developer: Michael Chen MD Abs.Imm.Granulocyte 0.03 k/uL Normal 0.00-0.30 [facility] Comment on above: Performed By: #### B MPX, CDP #### [facility] [address] [place] [address] Sql Report Developer: Michael Chen MD Abs.Neutrophil (Seg) 5.50 k/uL Normal 1.50-8.10 [facility] Comment on above: Performed By: #### B MPX, CDP #### [facility] [address] [place] [address] Sql Report Developer: Michael Chen MD Basophils/100 WBC (Bld) 0 % Normal 0-2 [facility] Comment on above: Performed By: #### B MPX, CDP #### [address] [address] Sql Report Developer: Michael Chen MD Eosinophils (Bld) [#/Vol] 0.15 10*3/uL Normal 0.00-0.44 [facility] Comment on above: Performed By: #### B MPX, CDP #### [facility] [address] [place] [address] Sql Report Developer: Michael Chen MD Eosinophils/100 WBC (Bld) 2 % Normal 1-4 [facility] Comment on above: Performed By: #### B MPX, CDP #### [address] [address] Sql Report Developer: Michael Chen MD Erythrocyte distribution width (RBC) [Ratio] 13.7 % Normal 11.8-14.4 [facility] Comment on above: Performed By: #### B MPX, CDP #### [address] [address] Sql Report Developer: Michael Chen MD Hematocrit (Bld) [Volume fraction] 28.9 % Low 36.3-47.1 [facility] Comment on above: Performed By: #### B MPX, CDP #### [facility] [address] [place] [address] Sql Report Developer: Michael Chen MD Hemoglobin (Bld) [Mass/Vol] 8.6 g/dL Low 11.9-15.1 [facility] Comment on above: Performed By: #### B MPX, CDP #### [facility] [address] [place] [address] Sql Report Developer: Michael Chen MD Immature granulocytes/100 WBC (Bld) 0 % Normal 0 [facility] Comment on above: Performed By: #### B MPX, CDP #### [place] [address] Sql Report Developer: Michael Chen MD Lymphocytes (Bld) [#/Vol] 1.07 10*3/uL Low 1.10-3.70 [facility] Comment on above: Performed By: #### B MPX, CDP #### [place] [address] Sql Report Developer: Michael Chen MD Lymphocytes/100 WBC (Bld) 14 % Low 24-43 [facility] Comment on above: Performed By: #### B MPX, CDP #### [facility] [address] [place] [address] Sql Report Developer: Michael Chen MD MCH (RBC) [Entitic mass] 30.2 pg Normal 25.2-33.5 [facility] Comment on above: Performed By: #### B MPX, CDP #### [place] [address] Sql Report Developer: Michael Chen MD MCHC (RBC) [Mass/Vol] 29.8 g/dL Normal 28.4-34.8 [facility] Comment on above: Performed By: #### B MPX, CDP #### [place] [address] Sql Report Developer: Michael Chen MD MCV (RBC) [Entitic vol] 101.4 fL Normal 82.6-102.9 [facility] Comment on above: Performed By: #### B MPX, CDP #### [place] [address] Sql Report Developer: Michael Chen MD Monocytes (Bld) [#/Vol] 0.72 10*3/uL Normal 0.10-1.20 [facility] Comment on above: Performed By: #### B MPX, CDP #### [facility] [place] [address] Sql Report Developer: Michael Chen MD Monocytes/100 WBC (Bld) 10 % Normal 3-12 [facility] Comment on above: Performed By: #### B MPX, CDP #### [facility] [address] [place] [address] Sql Report Developer: Michael Chen MD Neutrophil (Seg) 74 % High 36-65 [facility] Comment on above: Performed By: #### B MPX, CDP #### [address] [address] Sql Report Developer: Michael Chen MD NRBC Automated 0.0 per 100 WBC Normal 0.0 [facility] Comment on above: Performed By: #### B MPX, CDP #### [facility] [address] [place] [address] Sql Report Developer: Michael Chen MD Platelet mean volume (Bld) [Entitic vol] 9.9 fL Normal 8.1-13.5 [facility] Comment on above: Performed By: #### B MPX, CDP #### [address] [address] Sql Report Developer: Michael Chen MD Platelets (Bld) [#/Vol] 292 10*3/uL Normal 138-453 [facility] Comment on above: Performed By: #### B MPX, CDP #### [facility] [address] [place] [address] Sql Report Developer: Michael Chen MD RBC (Bld) [#/Vol] 2.85 10*6/uL Low 3.95-5.11 [facility] Comment on above: Performed By: #### B MPX, CDP #### [address] [address] Sql Report Developer: Michael Chen MD WBC (Bld) [#/Vol] 7.5 10*3/uL Normal 3.5-11.3 [facility] Comment on above: Performed By: #### B MPX, CDP #### [address] [address] Sql Report Developer: Michael Chen MD APTTon 01-22-2024 aPTT Coag (Bld) [Time] 29.1 s Normal 23.0-36.5 [facility] Comment on above: Result Comment: IV Heparin Therapy Range: 66.0-92.0 sec Performed By: #### C DP, CMPX #### [address] [address] Sql Report Developer: Michael Chen MD Basic Metab w/rfx MGon 01-21 Anion gap [Moles/Vol] 10 mmol/L Normal 9-16 [facility] Comment on above: Performed By: #### C DP, CMPX #### [address] [address] Sql Report Developer: Michael Chen MD Calcium [Mass/Vol] 8.3 mg/dL Low 8.6-10.4 [facility] Comment on above: Performed By: #### C DP, CMPX #### [address] [address] Sql Report Developer: Michael Chen MD Chloride [Moles/Vol] 107 mmol/L Normal 98-107 [facility] Comment on above: Performed By: #### C DP, CMPX #### [address] [address] Sql Report Developer: Michael Chen MD CO2 [Moles/Vol] 21 mmol/L Normal 20-31 [facility] Comment on above: Performed By: #### C DP, CMPX #### [address] [address] Sql Report Developer: Michael Chen MD Creatinine [Mass/Vol] 1.8 mg/dL High 0.50-0.90 [facility] Comment on above: Performed By: #### C DP, CMPX #### [facility] [address] [place] [address] Sql Report Developer: Michael Chen MD GFR/1.73 sq M.predicted among non-blacks MDRD (S/P/Bld) [Vol rate/Area] 32 mL/min/{1.73_m2} Low >60 [facility] Comment on above: Result Comment: These [...] Performed By: #### C DP, CMPX #### [facility] [address] [place] [address] Sql Report Developer: Michael Chen MD Glucose [Mass/Vol] 86 mg/dL Normal 74-99 [facility] Comment on above: Performed By: #### C DP, CMPX #### [facility] [address] [place] [address] Sql Report Developer: Michael Chen MD Potassium [Moles/Vol] 4.1 mmol/L Normal 3.7-5.3 [facility] Comment on above: Performed By: #### C DP, CMPX #### [facility] [address] [place] [address] Sql Report Developer: Michael Chen MD Sodium [Moles/Vol] 138 mmol/L Normal 136-145 [facility] Comment on above: Performed By: #### C DP, CMPX #### [facility] [address] [place] [address] Sql Report Developer: Michael Chen MD Urea nitrogen [Mass/Vol] 66 mg/dL High 8-23 [facility] Comment on above: Performed By: #### C DP, CMPX #### [facility] [address] [place] [address] Sql Report Developer: Michael Chen MD C-Reactive Proteinon 024 CRP [Mass/Vol] 31.7 mg/L High 0.0-5.0 [facility] Comment on above: Performed By: #### B MPX, CDP #### [facility] [address] [place] [address] Sql Report Developer: Michael Chen MD C3on 01-22-2024 C3 111 mg/dL Normal 90-180 [facility] Comment on above: Performed By: #### B MPX, CDP #### [facility] [address] [place] [address] Sql Report Developer: Michael Chen MD C4on 01-22-2024 C4 21 mg/dL Normal 10-40 [facility] Comment on above: Performed By: #### B MPX, CDP #### [facility] [address] [place] [address] Sql Report Developer: Michael Chen MD CBC with Diffon 01-22-2024 Abs. Basophil 0.00 k/uL Normal 0.00-0.20 [facility] Comment on above: Performed By: #### C DP, CMPX #### [facility] [address] [place] [address] Sql Report Developer: Michael Chen MD Abs.Imm.Granulocyte 0.00 k/uL Normal 0.00-0.30 [facility] Comment on above: Performed By: #### C DP, CMPX #### [facility] [address] [place] [address] Sql Report Developer: Michael Chen MD Abs.Neutrophil (Seg) 6.12 k/uL Normal 1.50-8.10 [facility] Comment on above: Performed By: #### C DP, CMPX #### [address] [address] Sql Report Developer: Michael Chen MD Basophils/100 WBC (Bld) 0 % Normal 0-2 [facility] Comment on above: Performed By: #### C DP, CMPX #### [address] [address] Sql Report Developer: Michael Chen MD Eosinophils (Bld) [#/Vol] 0.07 10*3/uL Normal 0.00-0.44 [facility] Comment on above: Performed By: #### C DP, CMPX #### [place] [address] Sql Report Developer: Michael Chen MD Eosinophils/100 WBC (Bld) 1 % Normal 1-4 [facility] Comment on above: Performed By: #### C DP, CMPX #### [address] [address] Sql Report Developer: Michael Chen MD Immature granulocytes/100 WBC (Bld) 0 % Normal 0 [facility] Comment on above: Performed By: #### C DP, CMPX #### [address] [address] Sql Report Developer: Michael Chen MD Lymphocytes (Bld) [#/Vol] 0.58 10*3/uL Low 1.10-3.70 [facility] Comment on above: Performed By: #### C DP, CMPX #### [address] [address] Sql Report Developer: Michael Chen MD Lymphocytes/100 WBC (Bld) 8 % Low 24-43 [facility] Comment on above: Performed By: #### C DP, CMPX #### [address] [address] Sql Report Developer: Michael Chen MD Monocytes (Bld) [#/Vol] 0.43 10*3/uL Normal 0.10-1.20 [facility] Comment on above: Performed By: #### C DP, CMPX #### [address] [address] Sql Report Developer: Michael Chen MD Monocytes/100 WBC (Bld) 6 % Normal 3-12 [facility] Comment on above: Performed By: #### C DP, CMPX #### [address] [address] Sql Report Developer: Michael Chen MD Morphology Pedro (Bld) [Interp] Normal Normal [facility] Comment on above: Performed By: #### C DP, CMPX #### [address] [address] Sql Report Developer: Michael Chen MD Neutrophil (Seg) 85 % High 36-65 [facility] Comment on above: Performed By: #### C DP, CMPX #### [address] [address] Sql Report Developer: Michael Chen MD Erythrocyte distribution width (RBC) [Ratio] 13.6 % Normal 11.8-14.4 [facility] Comment on above: Performed By: #### C DP, CMPX #### [address] [address] Sql Report Developer: Michael Chen MD Hematocrit (Bld) [Volume fraction] 30.3 % Low 36.3-47.1 [facility] Comment on above: Performed By: #### C DP, CMPX #### [address] [address] Sql Report Developer: Michael Chen MD Hemoglobin (Bld) [Mass/Vol] 9.3 g/dL Low 11.9-15.1 [facility] Comment on above: Performed By: #### C DP, CMPX #### [address] [address] Sql Report Developer: Michael Chen MD MCH (RBC) [Entitic mass] 30.8 pg Normal 25.2-33.5 [facility] Comment on above: Performed By: #### C DP, CMPX #### [address] [address] Sql Report Developer: Michael Chen MD MCHC (RBC) [Mass/Vol] 30.7 g/dL Normal 28.4-34.8 [facility] Comment on above: Performed By: #### C DP, CMPX #### [address] [address] Sql Report Developer: Michael Chen MD MCV (RBC) [Entitic vol] 100.3 fL Normal 82.6-102.9 [facility] Comment on above: Performed By: #### C DP, CMPX #### [address] [address] Sql Report Developer: Michael Chen MD NRBC Automated 0.0 per 100 WBC Normal 0.0 [facility] Comment on above: Performed By: #### C DP, CMPX #### [address] [address] Sql Report Developer: Michael Chen MD Platelet mean volume (Bld) [Entitic vol] 9.6 fL Normal 8.1-13.5 [facility] Comment on above: Performed By: #### C DP, CMPX #### [address] [address] Sql Report Developer: Michael Chen MD Platelets (Bld) [#/Vol] 329 10*3/uL Normal 138-453 [facility] Comment on above: Performed By: #### C DP, CMPX #### [facility] [address] [place] [address] Sql Report Developer: Michael Chen MD RBC (Bld) [#/Vol] 3.02 10*6/uL Low 3.95-5.11 [facility] Comment on above: Performed By: #### C DP, CMPX #### [facility] [address] [place] [address] Sql Report Developer: Michael Chen MD WBC (Bld) [#/Vol] 7.2 10*3/uL Normal 3.5-11.3 [facility] Comment on above: Performed By: #### C DP, CMPX #### [facility] [address] [place] [address] Sql Report Developer: Michael Chen MD CT CERVICAL SPINE WO [...] Anuj Paniagua MD 01/22/24 Final result Normal [facility] CT CHEST ABDOMEN PELVIS W CO [...] Anuj Paniagua MD 01/22/24 Final result Normal [facility] CT HEAD WO CONTRASTon 2023 CT [...] Anuj Paniagua MD 01/22/24 Final result Normal [facility] CT LUMBAR SPINE BONY RECONST RUCTIONon [...] Anuj Paniagua MD 01/22/24 Final result Normal [facility] CT THORACIC SPINE BONY RECON STRUCTIONon [...] Anuj Paniagua MD 01/22/24 Final result Normal [facility] CTA HEAD NECK W CONTRASTon 0 [...] Anuj Paniagua MD 01/22/24 Final result Normal [facility] Creatine Kinaseon 01-22-2024 CK [Catalytic activity/Vol] 38 U/L Normal 26-192 [facility] Comment on above: Performed By: #### B MPX, CDP #### [facility] [address] [place] [address] Sql Report Developer: Michael Chen MD MRI BRAIN WO CONTRASTon [...] Shabbir Martin MD 01/22/24 Final result Normal [facility] MRI CERVICAL SPINE WO CONTRA STon [...] Kirby Adames MD 01/22/24 Final result Normal [facility] PTon 01-22-2024 INR Coag (PPP) [Relative time] 1.1 {INR} Normal [facility] Comment on above: Result Comment: Therapeutic Range: Moderate Anticoagulant Intensity: INR = 2.0-3.0 High Anticoagulant Intensity: INR = 2.5-3.5 Performed By: #### C DP, CMPX #### [address] [address] Sql Report Developer: Michael Chen MD PT Coag (PPP) [Time] 14.2 s Normal 11.7-14.9 [facility] Comment on above: Performed By: #### C DP, CMPX #### [facility] [address] [place] [address] Sql Report Developer: Michael Chen MD RA Screenon 01-22-2024 RA Screen <10 Normal 0-13 [facility] Comment on above: Performed By: #### B MPX, CDP #### [facility] [address] [place] [address] Sql Report Developer: Michael Chen MD Sedimentation Rateon 024 Sedimentation Rate 11 mm/Hr Normal 0-30 [facility] Comment on above: Performed By: #### B MPX, CDP #### [address] [address] Sql Report Developer: Michael Chen MD Type + Screenon 01-22-2024 Type + Screen Sample Expiration 01/25/2024,2359 Arm Band Number [id number] ABO/Rh(D) A POSITIVE Antibody Screen NEGATIVE Normal [facility] Comment on above: Performed By: #### B MPX, CDP #### [address] [address] Sql Report Developer: Michael Chen MD Uric Acidon 01-22-2024 Urate [Mass/Vol] 9.6 mg/dL High 2.4-5.7 [facility] Comment on above: Performed By: #### B MPX, CDP #### [facility] [address] [place], [place] [id number] Sql Report Developer: Michael Chen MD Vitamin D 25 OHon 01-22-2024 Vitamin D 25 [place] 30.3 ng/mL Normal 30.0-100.0 [facility] Comment on above: Result Comment: Reference Range: Vitamin D status Range Deficiency <20 ng/mL Mild Deficiency 20-30 ng/mL Sufficiency 30-100 ng/mL Toxicity >100 ng/mL Performed By: #### B MPX, CDP #### [facility] [address] [place] [address] Sql Report Developer: Michael Chen MD XR CHEST (SINGLE VIEW FRONTA L)on 01-22-2024 XR CHEST (SINGLE VIEW FRONTAL) EXAMINATION: ONE XRAY VIEW OF THE CHEST 01/22/2024 10:06 am COMPARISON: Chest radiograph 09/30/2023 HISTORY: ORDERING SYSTEM PROVIDED HISTORY: pre-op manager oncology PROVIDED HISTORY: Pre-op imaging FINDINGS: Lines/tubes: Right [...] Migel Price MD 01/22/24 Final result Normal [facility] Office Visiton 12-21-2023 Follow-up visit [id number] Loren Moser 1960 F Date Provider Department Center 12/21/2023 KasiBENJIE DANG [facility] Family History Family history unknown: Yes Level of Service:89466 [place] OFFICE/OUTPATIENT ESTABLISHED MOD MDM 30 MIN Normal [facility] Orders Onlyon 12-21-2023 Orders Only [id number] Loren Moser 1960 F Date Provider Department Center 12/21/2023 MIKAYLA BURGER [facility] Family History Family history unknown: Yes Normal [facility] Basic Metab w/rfx MGon 09-30 Anion gap [Moles/Vol] 8 mmol/L Low 9-16 [facility] Comment on above: Performed By: #### C DP, BMPX #### [facility] [address] [place] [address] Sql Report Developer: Michael Chen MD Calcium [Mass/Vol] 8.1 mg/dL Low 8.6-10.4 [facility] Comment on above: Performed By: #### C DP, BMPX #### [facility] [address] [place] [address] Sql Report Developer: Michael Chen MD Chloride [Moles/Vol] 101 mmol/L Normal 98-107 [facility] Comment on above: Performed By: #### C DP, BMPX #### [facility] [address] [place] [address] Sql Report Developer: Michael Chen MD CO2 [Moles/Vol] 23 mmol/L Normal 20-31 [facility] Comment on above: Performed By: #### C DP, BMPX #### [facility] [address] [place] [address] Sql Report Developer: Michael Chen MD Creatinine [Mass/Vol] 1.5 mg/dL High 0.50-0.90 [facility] Comment on above: Performed By: #### C DP, BMPX #### [facility] [address] [place] [address] Sql Report Developer: Michael Chen MD GFR/1.73 sq M.predicted among non-blacks MDRD (S/P/Bld) [Vol rate/Area] 39 mL/min/{1.73_m2} Low >60 [facility] Comment on above: Result Comment: These [...] Performed By: #### C DP, BMPX #### [facility] [address] [place] [address] Sql Report Developer: Michael Chen MD Glucose [Mass/Vol] 100 mg/dL High 74-99 [facility] Comment on above: Performed By: #### C DP, BMPX #### [facility] [address] [place] [address] Sql Report Developer: Michael Chen MD Potassium [Moles/Vol] 4.4 mmol/L Normal 3.7-5.3 [facility] Comment on above: Performed By: #### C DP, BMPX #### [facility] [address] [place] [address] Sql Report Developer: Michael Chen MD Sodium [Moles/Vol] 132 mmol/L Low 136-145 [facility] Comment on above: Performed By: #### C DP, BMPX #### [facility] [address] [place] [address] Sql Report Developer: Michael Chen MD Urea nitrogen [Mass/Vol] 56 mg/dL High 8-23 [facility] Comment on above: Performed By: #### C DP, BMPX #### [facility] [address] [place] [address] Sql Report Developer: Michael Chen MD CBC with Diffon 10-01-2023 Abs. Basophil 0.03 k/uL Normal 0.00-0.20 [facility] Comment on above: Performed By: #### C DP, BMPX #### [place] [address] Sql Report Developer: Michael Chen MD Abs.Imm.Granulocyte 0.05 k/uL Normal 0.00-0.30 [facility] Comment on above: Performed By: #### C DP, BMPX #### [place] [address] Sql Report Developer: Michael Chen MD Abs.Neutrophil (Seg) 6.55 k/uL Normal 1.50-8.10 [facility] Comment on above: Performed By: #### C DP, BMPX #### [place] [address] Sql Report Developer: Michael Chen MD Basophils/100 WBC (Bld) 0 % Normal 0-2 [facility] Comment on above: Performed By: #### C DP, BMPX #### [place] [address] Sql Report Developer: Michael Chen MD Eosinophils (Bld) [#/Vol] 0.10 10*3/uL Normal 0.00-0.44 [facility] Comment on above: Performed By: #### C DP, BMPX #### [place] [address] Sql Report Developer: Michael Chen MD Eosinophils/100 WBC (Bld) 1 % Normal 1-4 [facility] Comment on above: Performed By: #### C DP, BMPX #### [place] [address] Sql Report Developer: Michael Chen MD Erythrocyte distribution width (RBC) [Ratio] 13.6 % Normal 11.8-14.4 [facility] Comment on above: Performed By: #### C DP, BMPX #### [address] [address] Sql Report Developer: Michael Chen MD Hematocrit (Bld) [Volume fraction] 27.9 % Low 36.3-47.1 [facility] Comment on above: Performed By: #### C DP, BMPX #### [address] [address] Sql Report Developer: Michael Chen MD Hemoglobin (Bld) [Mass/Vol] 8.4 g/dL Low 11.9-15.1 [facility] Comment on above: Performed By: #### C DP, BMPX #### [address] [address] Sql Report Developer: Michael Chen MD Immature granulocytes/100 WBC (Bld) 1 % High 0 [facility] Comment on above: Performed By: #### C DP, BMPX #### [address] [address] Sql Report Developer: Michael Chen MD Lymphocytes (Bld) [#/Vol] 0.94 10*3/uL Low 1.10-3.70 [facility] Comment on above: Performed By: #### C DP, BMPX #### [address] [address] Sql Report Developer: Michael Chen MD Lymphocytes/100 WBC (Bld) 11 % Low 24-43 [facility] Comment on above: Performed By: #### C DP, BMPX #### [address] [address] Sql Report Developer: Michael Chen MD MCH (RBC) [Entitic mass] 30.5 pg Normal 25.2-33.5 [facility] Comment on above: Performed By: #### C DP, BMPX #### [facility] [address] [place] [address] Sql Report Developer: Michael Chen MD MCHC (RBC) [Mass/Vol] 30.1 g/dL Normal 28.4-34.8 [facility] Comment on above: Performed By: #### C DP, BMPX #### [address] [address] Sql Report Developer: Michael Chen MD MCV (RBC) [Entitic vol] 101.5 fL Normal 82.6-102.9 [facility] Comment on above: Performed By: #### C DP, BMPX #### [address] [address] Sql Report Developer: Michael Chen MD Monocytes (Bld) [#/Vol] 0.54 10*3/uL Normal 0.10-1.20 [facility] Comment on above: Performed By: #### C DP, BMPX #### [address] [address] Sql Report Developer: Michael Chen MD Monocytes/100 WBC (Bld) 7 % Normal 3-12 [facility] Comment on above: Performed By: #### C DP, BMPX #### [address] [address] Sql Report Developer: Michael Chen MD Neutrophil (Seg) 80 % High 36-65 [facility] Comment on above: Performed By: #### C DP, BMPX #### [address] [address] Sql Report Developer: Michael Chen MD NRBC Automated 0.0 per 100 WBC Normal 0.0 [facility] Comment on above: Performed By: #### C DP, BMPX #### [address] [address] Sql Report Developer: Michael Chen MD Platelet mean volume (Bld) [Entitic vol] 8.9 fL Normal 8.1-13.5 [facility] Comment on above: Performed By: #### C DP, BMPX #### [address] [address] Sql Report Developer: Michael Chen MD Platelets (Bld) [#/Vol] 281 10*3/uL Normal 138-453 [facility] Comment on above: Performed By: #### C DP, BMPX #### [address] [address] Sql Report Developer: Michael Chen MD RBC (Bld) [#/Vol] 2.75 10*6/uL Low 3.95-5.11 [facility] Comment on above: Performed By: #### C DP, BMPX #### [address] [address] Sql Report Developer: Michael Chen MD WBC (Bld) [#/Vol] 8.2 10*3/uL Normal 3.5-11.3 [facility] Comment on above: Performed By: #### C DP, BMPX #### [address] [address] Sql Report Developer: Michael Chen MD Basic Metab w/rfx MGon 09-29 Anion gap [Moles/Vol] 12 mmol/L Normal 9-16 [facility] Comment on above: Performed By: #### C DP, BMPX #### [address] [address] Sql Report Developer: Michael Chen MD Calcium [Mass/Vol] 8.2 mg/dL Low 8.6-10.4 [facility] Comment on above: Performed By: #### C DP, BMPX #### [facility] [address] [place] [address] Sql Report Developer: Michael Chen MD Chloride [Moles/Vol] 103 mmol/L Normal 98-107 [facility] Comment on above: Performed By: #### C DP, BMPX #### [facility] [address] [place] [address] Sql Report Developer: Michael Chen MD CO2 [Moles/Vol] 23 mmol/L Normal 20-31 [facility] Comment on above: Performed By: #### C DP, BMPX #### [facility] [address] [place] [address] Sql Report Developer: Michael Chen MD Creatinine [Mass/Vol] 1.6 mg/dL High 0.50-0.90 [facility] Comment on above: Performed By: #### C DP, BMPX #### [address] [address] Sql Report Developer: Michael Chen MD GFR/1.73 sq M.predicted among non-blacks MDRD (S/P/Bld) [Vol rate/Area] 35 mL/min/{1.73_m2} Low >60 [facility] Comment on above: Result Comment: These [...] Performed By: #### C DP, BMPX #### [facility] [address] [place] [address] Sql Report Developer: Michael Chen MD Glucose [Mass/Vol] 89 mg/dL Normal 74-99 [facility] Comment on above: Performed By: #### C DP, BMPX #### [facility] [address] [place] [address] Sql Report Developer: Michael Chen MD Potassium [Moles/Vol] 4.6 mmol/L Normal 3.7-5.3 [facility] Comment on above: Result Comment: SPEC IMEN SLIGHTLY HEMOLYZED, RESULTS MAY BE ADVERSELY AFFECTED. Performed By: #### C DP, BMPX #### [facility] [address] [place] [address] Sql Report Developer: Michael Chen MD Sodium [Moles/Vol] 138 mmol/L Normal 136-145 [facility] Comment on above: Performed By: #### C DP, BMPX #### [facility] [address] [place] [address] Sql Report Developer: Michael Chen MD Urea nitrogen [Mass/Vol] 57 mg/dL High 8-23 [facility] Comment on above: Performed By: #### C DP, BMPX #### [facility] [address] [place] [address] Sql Report Developer: Michael Chen MD Brain Natri. Peptideon 09-29 Natriuretic peptide B (Bld) [Mass/Vol] 1428 pg/mL High 0-300 [facility] Comment on above: Result Comment: An a ge-independent cutoff point of 300 pg/ml has a 98% negative predictive value excluding acute heart failure. Performed By: #### C DP, BMPX #### [facility] [address] [place] [address] Sql Report Developer: Michael Chen MD Liver Profileon 09-30-2023 Albumin [Mass/Vol] 3.5 g/dL Normal 3.5-5.2 [facility] Comment on above: Performed By: #### C DP, BMPX #### [facility] [address] [place] [address] Sql Report Developer: Michael Chen MD Albumin/Glob Ratio 2.0 Normal 1.0-2.5 [facility] Comment on above: Performed By: #### C DP, BMPX #### [facility] [address] [place] [address] Sql Report Developer: Michael Chen MD Alkaline Phos 301 U/L High 35-104 [facility] Comment on above: Performed By: #### C DP, BMPX #### [facility] [address] [place] [address] Sql Report Developer: Michael Chen MD ALT [Catalytic activity/Vol] 17 U/L Normal 10-35 [facility] Comment on above: Performed By: #### C DP, BMPX #### [facility] [address] [place] [address] Sql Report Developer: Michael Chen MD AST [Catalytic activity/Vol] 33 U/L Normal 10-35 [facility] Comment on above: Result Comment: SPEC IMEN SLIGHTLY HEMOLYZED, RESULTS MAY BE ADVERSELY AFFECTED. Performed By: #### C DP, BMPX #### [facility] [address] [place] [address] Sql Report Developer: Michael Chen MD Bilirubin [Mass/Vol] 0.2 mg/dL Normal 0.00-1.20 [facility] Comment on above: Performed By: #### C DP, BMPX #### [facility] [address] [place] [address] Sql Report Developer: Michael Chen MD Bilirubin, Indirect 0.1 mg/dL Normal 0.0-1.0 [facility] Comment on above: Performed By: #### C DP, BMPX #### [facility] [address] [place] [address] Sql Report Developer: Michael Chen MD Bilirubin.indirect [Mass/Vol] mg/dL Normal 0.00-0.30 [facility] Comment on above: Performed By: #### C DP, BMPX #### [facility] [address] [place] [address] Sql Report Developer: Michael Chen MD Globulin (S) [Mass/Vol] 2.1 g/dL [facility] Comment on above: Performed By: #### C DP, BMPX #### [address] [address] Sql Report Developer: Michael Chen MD Protein [Mass/Vol] 5.6 g/dL Low 6.6-8.7 [facility] Comment on above: Performed By: #### C DP, BMPX #### [address] [address] Sql Report Developer: Michael Chen MD Specimen Rejectionon 024 Reason for rejection Unable to perform t esting: Specimen clotted. [facility] Comment on above: Performed By: #### C DP, BMPX #### [address] [address] Sql Report Developer: Michael Chen MD Source of sample .BLOOD Normal [facility] Comment on above: Performed By: #### C DP, BMPX #### [address] [address] Sql Report Developer: Michael Chne MD Test ordered CDP [facility] Comment on above: Performed By: #### C DP, BMPX #### [address] [address] Sql Report Developer: Michael Chen MD XR CERVICAL SPINE (2-3 [...] Carlos Peralta MD 09/30/23 Final result Normal [facility] XR CHEST PORTABLEon 09-30-19 XR CHEST [...] Carlos Peralta MD 09/30/23 Final result Normal [facility] Absolute reticulocyte countO rdered By: Los Grissom on 07-03-2023 Reticulocytes (Bld) [#/Vol] 0.039 10*6/uL 0.024-0.[address] [place] [address] Basic Metabolic Panelon Creatinine Clr Calc Pharmacy 25.88 [facility] Comment on above: Performed By: #### V [id number], MG, BMP, JOSE, FE and TIBC, RETIC #### [facility] [address] [place] [address] [place] GFR/1.73 sq M.predicted MDRD (S/P/Bld) [Vol rate/Area] 23.348 mL/min/{1.73_m2} Normal [facility] Comment on above: Performed By: #### V [id number], MG, BMP, JOSE, FE and TIBC, RETIC #### [facility] [address] [place] [address] [place] Calcium [Mass/volume] in Ser um or PlasmaOrdered By: Jim Randhawa on 07-03-2023 Calcium [Mass/Vol] 8.3 mg/dL Low 8.6-10.3 [facility] Comment on above: Performed By: #### V [id number], MG, BMP, JOSE, FE and TIBC, RETIC #### [facility] [address] [place] [address] Carbon dioxide, total [Moles /volume] in Serum or PlasmaOrdered By: Jim Randhawa on 07-03-2023 CO2 [Moles/Vol] 20.4 mmol/L Low 21.0-31.0 [facility] Comment on above: Performed By: #### V [id number], MG, BMP, JOSE, FE and TIBC, RETIC #### [facility] [address] [place] [address] Chloride [Moles/volume] in S andrea or PlasmaOrdered By: Jim Randhawa on 07-03-2023 Chloride [Moles/Vol] 106 mmol/L Normal 98-107 [facility] Comment on above: Performed By: #### V [id number], MG, BMP, JOSE, FE and TIBC, RETIC #### [facility] [address] [place] [address] Creatinine [Mass/volume] in Serum or PlasmaOrdered By: Jim Randhawa on 07-03-2023 Creatinine [Mass/Vol] 2.32 mg/dL High 0.60-1.20 [facility] Comment on above: Performed By: #### V [id number], MG, BMP, JOSE, FE and TIBC, RETIC #### [facility] [address] [place] [address] [facility] echo transthoracicon E[facility] echo transthoracic [facility] [address] [place] [address] Echocardiogram Signed Patient: Mabel Moser MR#: [id number] : 1960 Acct:[id number] Age/Sex: 63 / F ADM Date: 06/29/23 Loc: Room: [address] [place] [address] Type: DIS IN Attending Dr: Jim Randhawa DO Ordering Provider: Jim Randhawa DO Date of Service: 07/02/2301/16/859 [facility] echo transthoracic: swelling Copies to: MD Jim Meyer DO Weight: 189 lb Performed By: Judah Pinto [facility] BSA: 1.9 m2 BP: 112/75 mmHg HR: [...] FS: 40.8 % Ao root area: 7.8 [id number] ap4: 8.4 cm TAPSE: 2.6 cm EDV(Teich): [...] Benjie Leach MD 07/03/[address] [facility] Ferritin [Mass/volume] in Se rum or PlasmaOrdered By: Los Grissom on 07-03-2023 Ferritin [Mass/Vol] 71.9 ng/mL Normal 11.0-306.8 [facility] Comment on above: Performed By: #### V [id number], MG, BMP, JOSE, FE and TIBC, RETIC #### [facility] [address] Folate [Mass/volume] in Seru m or PlasmaOrdered By: Los Grissom on 07-03-2023 Folate [Mass/Vol] 11.1 ng/mL >5.9 [facility] Comment on above: Folate reference ran ge: >5.9 ng/mlThe WHO technical consultation on folate and vitamin [id number] has determined that folate concentrations lessthan 4 ng/ml are considered deficient. Glucose [Mass/volume] in Ser um or PlasmaOrdered By: Jim Randhawa on 07-03-2023 Glucose [Mass/Vol] 99 mg/dL Normal 70-100 [facility] Comment on above: ADA recommended refe rence rangeRandom Glucose Reference Range is dependent on time and content of last meal. Glucose of more than 200 mg/dL in a nonstressed, ambulatory subject supports the diagnosis of Diabetes Mellitus. Result Comment: [place] om Glucose Reference Range is dependent on time and content of last meal. Glucose of more than 200 mg/dL in a nonstressed, ambulatory subject supports the diagnosis of Diabetes Mellitus. ADA recommended reference range Performed By: #### V [id number], MG, BMP, JOSE, FE and TIBC, RETIC #### [facility] [address] [place] [address] Iron [Mass/volume] in Serum or PlasmaOrdered By: Los Grissom on 07-03-2023 Iron [Mass/Vol] 59 ug/dL Normal 50-212 [facility] Comment on above: Performed By: #### V [id number], MG, BMP, JOSE, FE and TIBC, RETIC #### [address] Iron and TIBC Profileon % Iron Saturation 22.8 % Normal 20-50 [facility] Comment on above: Performed By: #### V [id number], MG, BMP, JOSE, FE and TIBC, RETIC #### [address] Total Iron Binding Capacity 259 ug/dL Normal 255-450 [facility] Comment on above: Performed By: #### V [id number], MG, BMP, JOSE, FE and TIBC, RETIC #### [address] Iron binding capacity [Mass/ volume] in Serum or PlasmaOrdered By: Los Grissom on 07-03-2023 Iron binding capacity [Mass/Vol] 259 ug/dL 255-450 [facility] Iron saturation [Mass Fracti on] in Serum or PlasmaOrdered By: Los Grissom on 07-03-2023 Iron saturation [Mass fraction] 22.8 % 20-50 [facility] Magnesium [Mass/volume] in S andrea or PlasmaOrdered By: Jim Randhawa on 07-03-2023 Magnesium [Mass/Vol] 2.0 mg/dL Normal 1.9-2.7 [facility] Comment on above: Performed By: #### V [id number], MG, BMP, JOSE, FE and TIBC, RETIC #### [facility] [address] [place] [address] No Panel InformationOrdered By: Jim Randhawa on 07-03-2023 Estimated GFR (CKD-EPI) 23.348 mL/Min [facility] Creatinine Clearance (Chem 25.88 [facility] Potassium [Moles/volume] in Serum or PlasmaOrdered By: Jim Randhawa on 07-03-2023 Potassium [Moles/Vol] 3.9 mmol/L Normal 3.5-5.1 [facility] Comment on above: Performed By: #### V [id number], MG, BMP, JOSE, FE and TIBC, RETIC #### [address] Reticulocyte Counton 024 Reticulocyte Number 0.039 10*6/uL Normal 0.024-[address] [facility] Comment on above: Result Comment: PERF ORMED BY: [place] [address] PATHOLOGIST WALL WASHER TANNER GAVIN M.D. Performed By: #### V [id number], MG, BMP, JOSE, FE and TIBC, RETIC #### [address] Reticulocyte Percent 1.5 % Normal 0.5-1.5 [facility] Comment on above: Performed By: #### V [id number], MG, BMP, JOSE, FE and TIBC, RETIC #### [place] [address] [place] Reticulocytes/100 RBC Auto ( Bld)Ordered By: Los Grissom on 07-03-2023 Reticulocytes/100 RBC (Bld) 1.5 % 0.5-1.5 [facility] Serum or plasma anion gap de terminationOrdered By: Jim Randhawa on 07-03-2023 Anion gap [Moles/Vol] 11.5 mmol/L Normal 6.0-15.0 [facility] Comment on above: Performed By: #### V [id number], MG, BMP, JOSE, FE and TIBC, RETIC #### [address] Sodium [Moles/volume] in Ser um or PlasmaOrdered By: Jim Randhawa on 07-03-2023 Sodium [Moles/Vol] 134 mmol/L Low 136-145 [facility] Comment on above: Performed By: #### V [id number], MG, BMP, JOSE, FE and TIBC, RETIC #### [facility] [address] [place] [address] Transferrin [Mass/volume] in Serum or PlasmaOrdered By: Los Grissom on 07-03-2023 Transferrin [Mass/Vol] 185 mg/dL Low 203-362 [facility] Comment on above: Performed By: #### V [id number], MG, BMP, JOSE, FE and TIBC, RETIC #### [address] Urea nitrogen [Mass/volume] in Serum or PlasmaOrdered By: Jim Randhawa on 07-03-2023 Urea nitrogen [Mass/Vol] 95 mg/dL High 7-25 [facility] Comment on above: Performed By: #### V [id number], MG, BMP, JOSE, FE and TIBC, RETIC #### [facility] [address] [place] [address] Vit. B12/Folate Profileon Folate 11.1 ng/mL Normal >5.9 [facility] Comment on above: Result Comment: Sandra te reference range: >5.9 ng/ml The WHO technical consultation on folate and vitamin b12 deficiencies has determined that folate concentrations less than 4 ng/ml are considered deficient. PERFORMED BY: [place] [address] PATHOLOGIST WALL WASHER TANNER GAVIN M.D. Performed By: #### V [id number], MG, BMP, JOSE, FE and TIBC, RETIC #### [address] Vitamin B12 ser/plasOrdered By: Los Grissom on 07-03-2023 Cobalamin (Vitamin B12) [Mass/Vol] 3564 pg/mL High 180-914 [facility] Comment on above: Performed By: #### V [id number], MG, BMP, JOSE, FE and TIBC, RETIC #### [address] [place] [address] [place] Basic Metabolic Panelon 01-0 Anion gap [Moles/Vol] 11.0 mmol/L Normal 6.0-15.0 [facility] Comment on above: Performed By: #### V [id number], MG, BMP, JOSE, FE and TIBC, RETIC #### [facility] [address] Calcium [Mass/Vol] 8.4 mg/dL Low 8.6-10.3 [facility] Comment on above: Performed By: #### V [id number], MG, BMP, JOSE, FE and TIBC, RETIC #### [address] Chloride [Moles/Vol] 104 mmol/L Normal 98-107 [facility] Comment on above: Performed By: #### V [id number], MG, BMP, JOSE, FE and TIBC, RETIC #### [address] CO2 [Moles/Vol] 20.2 mmol/L Low 21.0-31.0 [facility] Comment on above: Performed By: #### V [id number], MG, BMP, JOSE, FE and TIBC, RETIC #### [address] Creatinine [Mass/Vol] 2.31 mg/dL High 0.60-1.20 [facility] Comment on above: Performed By: #### V [id number], MG, BMP, JOSE, FE and TIBC, RETIC #### [address] Creatinine Clr Calc Pharmacy 26.22 [facility] Comment on above: Performed By: #### V [id number], MG, BMP, JOSE, FE and TIBC, RETIC #### [address] GFR/1.73 sq M.predicted MDRD (S/P/Bld) [Vol rate/Area] 23.469 mL/min/{1.73_m2} Normal [facility] Comment on above: Performed By: #### V [id number], MG, BMP, JOSE, FE and TIBC, RETIC #### [facility] [address] Glucose [Mass/Vol] 89 mg/dL Normal 70-100 [facility] Comment on above: Result Comment: [facility] Glucose Reference Range is dependent on time and content of last meal. Glucose of more than 200 mg/dL in a nonstressed, ambulatory subject supports the diagnosis of Diabetes Mellitus. ADA recommended reference range Performed By: #### V [id number], MG, BMP, JOSE, FE and TIBC, RETIC #### [address] Potassium [Moles/Vol] 4.2 mmol/L Normal 3.5-5.1 [facility] Comment on above: Performed By: #### V [id number], MG, BMP, JOSE, FE and TIBC, RETIC #### [facility] [address] Sodium [Moles/Vol] 131 mmol/L Low 136-145 [facility] Comment on above: Performed By: #### V [id number], MG, BMP, JOSE, FE and TIBC, RETIC #### [address] Urea nitrogen [Mass/Vol] 100 mg/dL High 7-25 [facility] Comment on above: Performed By: #### V [id number], MG, BMP, JOSE, FE and TIBC, RETIC #### [address] Erythrocyte distribution wid th Auto (RBC) [Ratio]Ordered By: Jim Randhawa on 07-02-2023 Erythrocyte distribution width (RBC) [Ratio] 14.2 % 11.9-15.3 [facility] Hematocrit Auto (Bld) [Volum e fraction]Ordered By: Jim Randhawa on 07-02-2023 Hematocrit (Bld) [Volume fraction] 25.0 % 34.0-46.4 [facility] Hemoglobin [Mass/volume] in BloodOrdered By: Jim Randhawa on 07-02-2023 Hemoglobin (Bld) [Mass/Vol] 8.4 g/dL 11.8-15.4 [facility] Hemogram CBC Without Diffon 07-02-2023 Erythrocyte distribution width (RBC) [Ratio] 14.2 % Normal 11.9-15.3 [facility] Comment on above: Performed By: #### V [id number], MG, BMP, JOSE, FE and TIBC, RETIC #### [address] Hematocrit (Bld) [Volume fraction] 25.0 % Low 34.0-46.4 [facility] Comment on above: Performed By: #### V [id number], MG, BMP, JOSE, FE and TIBC, RETIC #### [address] Hemoglobin (Bld) [Mass/Vol] 8.4 g/dL Low 11.8-15.4 [facility] Comment on above: Performed By: #### V [id number], MG, BMP, JOSE, FE and TIBC, RETIC #### [address] MCH (RBC) [Entitic mass] 32.3 pg Normal 24.7-34.3 [facility] Comment on above: Performed By: #### V [id number], MG, BMP, JOSE, FE and TIBC, RETIC #### [address] MCV (RBC) [Entitic vol] 96.6 fL Normal 80-100 [facility] Comment on above: Performed By: #### V [id number], MG, BMP, JOSE, FE and TIBC, RETIC #### [address] Mean Corpuscular HGB Conc 33.4 g/dL Normal 32.0-35.0 [facility] Comment on above: Performed By: #### V [id number], MG, BMP, JOSE, FE and TIBC, RETIC #### [address] Platelet mean volume (Bld) [Entitic vol] 7.7 fL Normal 6.3-10.7 [facility] Comment on above: Result Comment: PERF ORMED BY: [place] [address] PATHOLOGIST WALL WASHER TANNER GAVIN M.D. Performed By: #### V [id number], MG, BMP, JOSE, FE and TIBC, RETIC #### [address] Platelets (Bld) [#/Vol] 217 10*3/uL Normal 150-450 [facility] Comment on above: Performed By: #### V [id number], MG, BMP, JOSE, FE and TIBC, RETIC #### [address] RBC (Bld) [#/Vol] 2.59 10*6/uL Low 3.60-5.00 [facility] Comment on above: Performed By: #### V [id number], MG, BMP, JOSE, FE and TIBC, RETIC #### [address] WBC (Bld) [#/Vol] 6.1 10*3/uL Normal 3.8-11.6 [facility] Comment on above: Performed By: #### V [id number], MG, BMP, JOSE, FE and TIBC, RETIC #### [address] Leukocytes [#/volume] correc nicol for nucleated erythrocytes in Blood by Automated counOrdered By: Jim Randhawa on 07-02-2023 WBC corrected for nucl RBC Auto (Bld) [#/Vol] 6.1 10*3/uL 3.8-11.6 [facility] MCH Auto (RBC) [Entitic mass ]Ordered By: Jim Randhawa on 07-02-2023 MCH (RBC) [Entitic mass] 32.3 pg 24.7-34.3 [facility] MCHC Auto (RBC) [Mass/Vol]Or dered By: Jim Randhawa on 07-02-2023 MCHC (RBC) [Mass/Vol] 33.4 g/dL 32.0-35.0 [facility] MCV Auto (RBC) [Entitic vol] Ordered By: Jim Randhawa on 07-02-2023 MCV (RBC) [Entitic vol] 96.6 fL 80-100 [facility] Magnesiumon 07-02-2023 Magnesium [Mass/Vol] 2.1 mg/dL Normal 1.9-2.7 [facility] Comment on above: Result Comment: PERF ORMED BY: [place] [address] PATHOLOGIST WALL WASHER TANNER GAVIN M.D. Performed By: #### V [id number], MG, BMP, JOSE, FE and TIBC, RETIC #### [facility] [address] [place] [address] Platelet mean volume Auto (B ld) [Entitic vol]Ordered By: Jim Randhawa on 07-02-2023 Platelet mean volume (Bld) [Entitic vol] 7.7 fL 6.3-10.7 [facility] Platelets Auto (Bld) [#/Vol] Ordered By: Jim Randhawa on 07-02-2023 Platelets (Bld) [#/Vol] 217 10*3/uL 150-450 [facility] RBC Auto (Bld) [#/Vol]Ordere d By: Jim Randhawa on 07-02-2023 RBC (Bld) [#/Vol] 2.59 10*6/uL 3.60-5.00 [facility] Basic Metabolic Panelon Anion gap [Moles/Vol] 11.9 mmol/L Normal 6.0-15.0 [facility] Comment on above: Order Comment: LINE DRAW Performed By: #### V [id number], MG, BMP, JOSE, FE and TIBC, RETIC #### [facility] [address] Calcium [Mass/Vol] 8.9 mg/dL Normal 8.6-10.3 [facility] Comment on above: Order Comment: LINE DRAW Performed By: #### V [id number], MG, BMP, JOSE, FE and TIBC, RETIC #### [facility] [address] Chloride [Moles/Vol] 108 mmol/L High 98-107 [facility] Comment on above: Order Comment: LINE DRAW Performed By: #### V [id number], MG, BMP, JOSE, FE and TIBC, RETIC #### [address] CO2 [Moles/Vol] 18.5 mmol/L Low 21.0-31.0 [facility] Comment on above: Order Comment: LINE DRAW Performed By: #### V [id number], MG, BMP, JOSE, FE and TIBC, RETIC #### [facility] [address] [place] [address] Creatinine [Mass/Vol] 2.63 mg/dL Significan t change up 0.60-1.20 [facility] Comment on above: Order Comment: LINE DRAW Performed By: #### V [id number], MG, BMP, JOSE, FE and TIBC, RETIC #### [address] Creatinine Clr Calc Pharmacy 23.09 [facility] Comment on above: Order Comment: LINE DRAW Performed By: #### V [id number], MG, BMP, JOSE, FE and TIBC, RETIC #### [facility] [address] [place] [address] [place] GFR/1.73 sq M.predicted MDRD (S/P/Bld) [Vol rate/Area] 20.085 mL/min/{1.73_m2} [facility] Comment on above: Order Comment: LINE DRAW Performed By: #### V [id number], MG, BMP, JOSE, FE and TIBC, RETIC #### [facility] [address] [place] [address] Glucose [Mass/Vol] 128 mg/dL High 70-100 [facility] Comment on above: Order Comment: LINE DRAW Result Comment: [facility] Glucose Reference Range is dependent on time and content of last meal. Glucose of more than 200 mg/dL in a nonstressed, ambulatory subject supports the diagnosis of Diabetes Mellitus. ADA recommended reference range Performed By: #### V [id number], MG, BMP, JOSE, FE and TIBC, RETIC #### [address] Potassium [Moles/Vol] 4.4 mmol/L Normal 3.5-5.1 [facility] Comment on above: Order Comment: LINE DRAW Performed By: #### V [id number], MG, BMP, JOSE, FE and TIBC, RETIC #### [address] Sodium [Moles/Vol] 134 mmol/L Low 136-145 [facility] Comment on above: Order Comment: LINE DRAW Performed By: #### V [id number], MG, BMP, JOSE, FE and TIBC, RETIC #### [address] Urea nitrogen [Mass/Vol] 104 mg/dL High 7-25 [facility] Comment on above: Order Comment: LINE DRAW Performed By: #### V [id number], MG, BMP, JOSE, FE and TIBC, RETIC #### [address] Magnesiumon 07-01-2023 Magnesium [Mass/Vol] 2.3 mg/dL Normal 1.9-2.7 [facility] Comment on above: Order Comment: LINE DRAW Result Comment: PERF ORMED BY: [place] [address] PATHOLOGIST WALL WASHER TANNER GAVIN M.D. Performed By: #### V [id number], MG, BMP, JOSE, FE and TIBC, RETIC #### [address] [place] [address] [place] Basic Metabolic Panelon 01-0 Anion gap [Moles/Vol] 14.6 mmol/L Normal 6.0-15.0 [facility] Comment on above: Performed By: #### V [id number], MG, BMP, JOSE, FE and TIBC, RETIC #### [facility] [address] Calcium [Mass/Vol] 8.6 mg/dL Normal 8.6-10.3 [facility] Comment on above: Performed By: #### V [id number], MG, BMP, JOSE, FE and TIBC, RETIC #### [facility] [address] Chloride [Moles/Vol] 109 mmol/L High 98-107 [facility] Comment on above: Performed By: #### V [id number], MG, BMP, JOSE, FE and TIBC, RETIC #### [address] CO2 [Moles/Vol] 15.0 mmol/L Low 21.0-31.0 [facility] Comment on above: Performed By: #### V [id number], MG, BMP, JOSE, FE and TIBC, RETIC #### [address] Creatinine [Mass/Vol] 3.16 mg/dL High 0.60-1.20 [facility] Comment on above: Performed By: #### V [id number], MG, BMP, JOSE, FE and TIBC, RETIC #### [address] Creatinine Clr Calc Pharmacy 19.26 [facility] Comment on above: Performed By: #### V [id number], MG, BMP, JOSE, FE and TIBC, RETIC #### [address] GFR/1.73 sq M.predicted MDRD (S/P/Bld) [Vol rate/Area] 16.114 mL/min/{1.73_m2} Normal [facility] Comment on above: Performed By: #### V [id number], MG, BMP, JOSE, FE and TIBC, RETIC #### [facility] [address] Glucose [Mass/Vol] 79 mg/dL Normal 70-100 [facility] Comment on above: Result Comment: [facility] Glucose Reference Range is dependent on time and content of last meal. Glucose of more than 200 mg/dL in a nonstressed, ambulatory subject supports the diagnosis of Diabetes Mellitus. ADA recommended reference range Performed By: #### V [id number], MG, BMP, JOSE, FE and TIBC, RETIC #### [facility] [address] Potassium [Moles/Vol] 4.6 mmol/L Normal 3.5-5.1 [facility] Comment on above: Performed By: #### V [id number], MG, BMP, JOSE, FE and TIBC, RETIC #### [facility] [address] Sodium [Moles/Vol] 134 mmol/L Low 136-145 [facility] Comment on above: Performed By: #### V [id number], MG, BMP, JOSE, FE and TIBC, RETIC #### [facility] [address] Urea nitrogen [Mass/Vol] 117 mg/dL High 7-25 [facility] Comment on above: Performed By: #### V [id number], MG, BMP, JOSE, FE and TIBC, RETIC #### [facility] [address] Magnesiumon 06-30-2023 Magnesium [Mass/Vol] 2.5 mg/dL Normal 1.9-2.7 [facility] Comment on above: Result Comment: PERF ORMED BY: [place] [address] PATHOLOGIST WALL WASHER TANNER GAVIN M.D. Performed By: #### V [id number], MG, BMP, JOSE, FE and TIBC, RETIC #### [facility] [address] CBC AUTO DIFFon 11-22-2022 BASO # 0.0 103/ul Normal 0.0-0.1 [facility] Comment on above: Performed By: #### C BC ####[facility] [address] [place] [id number]. Selenaneil Tripathi Basophils/100 WBC (Bld) 0.6 % Normal 0.2-2.0 [facility] Comment on above: Performed By: #### C BC ####[facility] [address] [place] [address]Dr. Selenaneil Tripathi EO # 0.1 103/ul Normal 0.0-0.7 [facility] Comment on above: Performed By: #### C BC ####[facility] [address] [place] [address]Dr. Airam Tripathi Eosinophils/100 WBC (Bld) 1.7 % Normal 0.9-7.0 [facility] Comment on above: Performed By: #### C BC ####[facility] [address] [place] [address]Dr. Selenaneil Tripathi Erythrocyte distribution width (RBC) [Ratio] 15.2 % Critically high 11.0-15.0 [facility] Comment on above: Performed By: #### C BC ####[facility] [address] [place] [address]Dr. Airam Tripathi Hematocrit (Bld) [Volume fraction] 31.6 % Critically low 36.0-48.0 [facility] Comment on above: Performed By: #### C BC ####[facility] [address] [place] [address]Dr. Airam Tripathi Hemoglobin (Bld) [Mass/Vol] 9.9 g/dL Critically low 12.0-16.0 [facility] Comment on above: Performed By: #### C BC ####[facility] [address] [place] [address]Dr. Airam Tripathi IG # 0.02 10e3/ul Normal 0.00-0.03 [facility] Comment on above: Performed By: #### C BC ####[facility] [address] [place] [address]DrKianna Airam Tripathi IG % 0.4 % Normal 0.0-0.5 [facility] Comment on above: Performed By: #### C BC ####[facility] [address] [place] [address]DrKianna Airam Tripathi LYMPH # 0.8 103/ul Critically low 1.2-3.8 [facility] Comment on above: Performed By: #### C BC ####[facility] [address] [place], [place] [address]DrKianna Airam Deuce Lymphocytes/100 WBC (Bld) 16.9 % Critically low 20.5-60.0 [facility] Comment on above: Performed By: #### C BC ####[facility] [address] [place], [place] [address]DrKianna Airam Deuce MANUAL DIFF REQ NO Normal [facility] Comment on above: Performed By: #### C BC ####[facility] [address] [place], [place] [address]DrKianna Airam Tripathi MCH (RBC) [Entitic mass] 28.4 pg Normal 26.7-34.0 [facility] Comment on above: Performed By: #### C BC ####[facility] [address] [place], [place] [address]DrKianna Airam Tripathi MCHC (RBC) [Mass/Vol] 31.3 g/dL Normal 29.9-35.2 [facility] Comment on above: Performed By: #### C BC ####[facility] [address] [place], [place] [address]DrKianna Airam Deuce MCV (RBC) [Entitic vol] 90.8 fL Normal 81.0-99.0 [facility] Comment on above: Performed By: #### C BC ####[facility] [address] [place], [place] [address]DrKianna Selenaneil Tripathi MONO # 0.4 103/ul Normal 0.3-0.8 [facility] Comment on above: Performed By: #### C BC ####[facility] [address] [place] [id number]. Airam Tripathi Monocytes/100 WBC (Bld) 8.9 % Normal 1.7-12.0 [facility] Comment on above: Performed By: #### C BC ####[facility] [address] [place] [id number]. Airam Tripathi NEUT # 3.4 103/ul Normal 1.4-6.5 [facility] Comment on above: Performed By: #### C BC ####[facility] [address] [place] [address]Dr. Airam Tripathi Neutrophils/100 WBC (Bld) 71.5 % Normal 43.0-75.0 [facility] Comment on above: Performed By: #### C BC ####[facility] [address] [place] [address]Dr. Airam Tripathi Platelet mean volume (Bld) [Entitic vol] 9.4 fL Critically low 9.5-13.5 [facility] Comment on above: Performed By: #### C BC ####[facility] [address] [place] [address]Dr. Airam Tripathi PLT 302 103/ul Normal 150-450 [facility] Comment on above: Performed By: #### C BC ####[facility] [address] [place] [address]Dr. Airam Tripathi RBC 3.48 106/ul Critically low 4.20-5.40 [facility] Comment on above: Performed By: #### C BC ####[facility] [address] [place] [id number]. Airam Tripathi WBC 4.7 103/ul Normal 4.0-11.0 [facility] Comment on above: Performed By: #### C BC ####[facility] [address] [place] [address]DrKianna Tripathi PROF 14(COMP METB)on 023 Albumin [Mass/Vol] 3.4 g/dL Normal 3.4-5.0 [facility] Comment on above: Performed By: #### C MP ####[facility] [address] [place] [address]Dr. Airam Tripathi Albumin/Globulin [Mass ratio] 1.0 {ratio} Normal [facility] Comment on above: Performed By: #### C MP ####[facility] [address] [place] [address]Dr. Airam Tripathi ALP [Catalytic activity/Vol] 123 U/L Critically high 46-116 [facility] Comment on above: Performed By: #### C MP ####[facility] [address] [place], [place] [address]Dr. Airam Tripathi ALT [Catalytic activity/Vol] 24 U/L Normal 14-59 [facility] Comment on above: Performed By: #### C MP ####[facility] [address] [place], [place] [address]Dr. Airam Tripathi Anion gap [Moles/Vol] 12.1 mmol/L Normal [facility] Comment on above: Performed By: #### C MP ####[facility] [address] [place], [place] [address]Dr. Airam Tripathi AST [Catalytic activity/Vol] 30 U/L Normal 15-37 [facility] Comment on above: Performed By: #### C MP ####[facility] [address] [place], [place] [address]Dr. Airam Tripathi Bilirubin [Mass/Vol] 0.4 mg/dL Normal 0.2-1.0 [facility] Comment on above: Performed By: #### C MP ####[facility] [address] [place], [place] [address]Dr. Airam Tripathi Calcium [Mass/Vol] 8.9 mg/dL Normal 8.5-10.1 [facility] Comment on above: Performed By: #### C MP ####[facility] [address] [place] [address]Dr. Airam Tripathi Chloride [Moles/Vol] 95 mmol/L Critically low 98-107 [facility] Comment on above: Performed By: #### C MP ####[facility] [address] [place] [id number]. Airam Tripathi CO2 [Moles/Vol] 28.7 mmol/L Normal 21.0-32.0 [facility] Comment on above: Performed By: #### C MP ####[facility] N[address]zvfavwkp23[address] [place] [id number]. Airam Tripathi Creatinine [Mass/Vol] 1.25 mg/dL Critically high 0.55-1.02 [facility] Comment on above: Performed By: #### C MP ####[facility] Imuh[address]hlql[address] [place] [id number]. Airam Tripathi EGFR-AF PANAMANIAN 53 mL/min/1.73m2 Critically low >=60 [facility] Comment on above: Performed By: #### C MP ####[facility] Djphapfxll[address] [place], [place] [address]Dr. Airam Tripathi EGFR-NON AF PANAMANIAN 44 mL/min/1.73m2 Critically low >=60 [facility] Comment on above: Performed By: #### C MP ####[facility] [address] [place] [address]Dr. Airam Tripathi Globulin (S) [Mass/Vol] 3.5 g/dL Normal [facility] Comment on above: Performed By: #### C MP ####[facility] [address]jvikzm[address] [place] [address]Dr. Airam Tripathi Glucose [Mass/Vol] 89 mg/dL Normal 74-106 [facility] Comment on above: Performed By: #### C MP ####[facility] Otccodouyb36[address] [place] [address]Dr. Airam Tripathi Potassium [Moles/Vol] 4.8 mmol/L Normal 3.5-5.1 [facility] Comment on above: Performed By: #### C MP ####[facility] Jfggspqblw[address] [place] [address]Dr. Airam Tripathi Protein [Mass/Vol] 6.9 g/dL Normal 6.4-8.2 [facility] Comment on above: Performed By: #### C MP ####[facility] V[address]jwxdxil[address] [place] [address]Dr. Airam Deuce Sodium [Moles/Vol] 131 mmol/L Critically low 136-145 [facility] Comment on above: Performed By: #### C MP ####[facility] Rsbmpmofag[address] [place], [place] [address]Dr. Airam Tripathi Urea nitrogen [Mass/Vol] 37.0 mg/dL Critically high 7.0-18.0 [facility] Comment on above: Performed By: #### C MP ####[facility] Svzxbbpdec6[address] [place], [place] [address]Dr. Airam Tripathi Urea nitrogen/Creatinine [Mass ratio] 29.6 mg/mg Normal [facility] Comment on above: Performed By: #### C MP ####[facility] Qycgrxmpsl86[address] [place], [place] [address]Dr. Airam Tripathi OSMOLALITYon 11-18-2022 Osmolality [Osmolality] 293 mosm/kg Normal 275-295 [facility] Comment on above: Performed By: #### O SMO ####[facility] Dvevkpwwhr7[address] [place], [place] [address]Dr. Selenaneil Deuce BNPon 11-16-2022 Natriuretic peptide B (Bld) [Mass/Vol] 1142.0 pg/mL Critically high <=900.0 [facility] Comment on above: Performed By: #### B CONTENT STRATEGIST ####[facility] Xucphptaag7412[address] [place], [place] [address]Dr. Airam Deuce CBC AUTO DIFFon 11-16-2022 BASO # 0.0 103/ul Normal 0.0-0.1 [facility] Comment on above: Performed By: #### C BC ####[facility] Umybigqynz909[address] [place], [place] [address]DrKianna Tripathi Basophils/100 WBC (Bld) 0.3 % Normal 0.2-2.0 [facility] Comment on above: Performed By: #### C BC ####[facility] Zdxmqijico3167[address] [place], [place] [address]Dr. Airam Tripathi EO # 0.3 103/ul Normal 0.0-0.7 [facility] Comment on above: Performed By: #### C BC ####[facility] Q[address]hgzutdm8[address] [place] [address]Dr. Airam Tripathi Eosinophils/100 WBC (Bld) 4.6 % Normal 0.9-7.0 [facility] Comment on above: Performed By: #### C BC ####[facility] Kqkljpssyh85[address] [place], [place] [address]Dr. Airam Tripathi Erythrocyte distribution width (RBC) [Ratio] 16.1 % Critically high 11.0-15.0 [facility] Comment on above: Performed By: #### C BC ####[facility] Vnibxakoqf5[address] [place], [place] [address]Dr. Airam Tripathi Hematocrit (Bld) [Volume fraction] 28.0 % Critically low 36.0-48.0 [facility] Comment on above: Performed By: #### C BC ####[facility] Pqwbdaobyv027[address] [place], [place] [address]Dr. Airam Tripathi Hemoglobin (Bld) [Mass/Vol] 8.9 g/dL Critically low 12.0-16.0 [facility] Comment on above: Performed By: #### C BC ####[facility] Jlecsxscbm75[address] [place], [place] [address]Dr. Airam Tripathi IG # 0.02 10e3/ul Normal 0.00-0.03 [facility] Comment on above: Performed By: #### C BC ####[facility] Snathrntau0105[address] [place], [place] [address]Dr. Airam Tripathi IG % 0.3 % Normal 0.0-0.5 [facility] Comment on above: Performed By: #### C BC ####[facility] Xmdnfvszpj09[address] [place], [place] [address]DrKianna Airam Tripathi LYMPH # 1.5 103/ul Normal 1.2-3.8 [facility] Comment on above: Performed By: #### C BC ####[facility] Cqtofbwbkc2108[address] [place], [place] [address]Dr. Airam Tripathi Lymphocytes/100 WBC (Bld) 24.2 % Normal 20.5-60.0 [facility] Comment on above: Performed By: #### C BC ####[facility] T[address]gjetxbf37[address] [place] [address]DrKianna Tripathi MANUAL DIFF REQ NO Normal [facility] Comment on above: Performed By: #### C BC ####[facility] Xciwgnimfl82[address] [place] [address]Dr. Airam Tripathi MCH (RBC) [Entitic mass] 29.3 pg Normal 26.7-34.0 [facility] Comment on above: Performed By: #### C BC ####[facility] Hnlrwagwhe159[address] [place], [place] [address]Dr. Airam Tripathi MCHC (RBC) [Mass/Vol] 31.8 g/dL Normal 29.9-35.2 [facility] Comment on above: Performed By: #### C BC ####[facility] Jvdlnhfdjt8022[address] [place], [place] [address]Dr. Airam Triapthi MCV (RBC) [Entitic vol] 92.1 fL Normal 81.0-99.0 [facility] Comment on above: Performed By: #### C BC ####[facility] Tzksmfgrkh00[address] [place], [place] [address]DrKianna Tripathi MONO # 0.6 103/ul Normal 0.3-0.8 [facility] Comment on above: Performed By: #### C BC ####[facility] Mrvxidmlxo394[address] [place], [place] [address]DrKianna Tripathi Monocytes/100 WBC (Bld) 10.0 % Normal 1.7-12.0 [facility] Comment on above: Performed By: #### C BC ####[facility] Lmczogcgmg429[address] [place], [place] [address]DrKianna Tripathi NEUT # 3.7 103/ul Normal 1.4-6.5 [facility] Comment on above: Performed By: #### C BC ####[facility] Whpovkmbec6234[address] [place], [place] [address]DrKianna Tripathi Neutrophils/100 WBC (Bld) 60.6 % Normal 43.0-75.0 [facility] Comment on above: Performed By: #### C BC ####[facility] [address]qmsbamm[address] [place] [address]Dr. Airam Deuce Platelet mean volume (Bld) [Entitic vol] 9.1 fL Critically low 9.5-13.5 [facility] Comment on above: Performed By: #### C BC ####[facility] V[address]uyviz[address] [place] [address]Dr. Airam Tripathi PLT 242 103/ul Normal 150-450 [facility] Comment on above: Performed By: #### C BC ####[facility] Wusbvskyoi7[address] [place], [place] [address]Dr. Airam Tripathi RBC 3.04 106/ul Critically low 4.20-5.40 [facility] Comment on above: Performed By: #### C BC ####[facility] Lcdppgadwb9[address] [place], [place] [address]DrKianna Tripathi WBC 6.1 103/ul Normal 4.0-11.0 [facility] Comment on above: Performed By: #### C BC ####[facility] Xzxmumttig[address] [place], [place] [address]DrKianna Selenaneil Tripathi CT STROKE HEAD WOon 11-17-19 CT STROKE HEAD WO Normal [facility] PROF CHEM 8 (BAS METB)on Anion gap [Moles/Vol] 9.8 mmol/L Normal [facility] Comment on above: Performed By: #### B GERTRUDE, HSTROPN ####[facility] [address]vvwbntk[address] [place] [address]DrKianna Tripathi Calcium [Mass/Vol] 8.4 mg/dL Critically low 8.5-10.1 [facility] Comment on above: Performed By: #### B GERTRUDE, HSTROPN ####[facility] [address]cbvbsw[address] [place] [address]DrKianna Tripathi Chloride [Moles/Vol] 99 mmol/L Normal 98-107 [facility] Comment on above: Performed By: #### B GERTRUDE, HSTROPN ####[facility] [address]etsbedek[address] [place] [address]Dr. Airam Tripathi CO2 [Moles/Vol] 28.3 mmol/L Normal 21.0-32.0 [facility] Comment on above: Performed By: #### B GERTRUDE, HSTROPN ####[facility] X[address]ogqgvjt[address] [place] [address]Dr. Airam Tripathi Creatinine [Mass/Vol] 1.40 mg/dL Critically high 0.55-1.02 [facility] Comment on above: Performed By: #### B GERTRUDE, HSTROPN ####[facility] Bojwgenjve9[address] [place], [place] [address]Dr. Airam Tripathi EGFR-AF PANAMANIAN 46 mL/min/1.73m2 Critically low >=60 [facility] Comment on above: Performed By: #### B GERTRUDE, HSTROPN ####[facility] Mphdjigcaf[address] [place], [place] [address]Dr. Airam Tripathi EGFR-NON AF PANAMANIAN 38 mL/min/1.73m2 Critically low >=60 [facility] Comment on above: Performed By: #### B GERTRUDE, HSTROPN ####[facility] Ubtnvbwfji716[address] [place], [place] [address]Dr. Airam Tripathi Glucose [Mass/Vol] 88 mg/dL Normal 74-106 [facility] Comment on above: Performed By: #### B GERTRUDE, HSTROPN ####[facility] Lhafhaoucu[address] [place], [place] [address]Dr. Airam Tripathi Potassium [Moles/Vol] 5.1 mmol/L Normal 3.5-5.1 [facility] Comment on above: Performed By: #### B GERTRUDE, HSTROPN ####[facility] Ynauwpjbse[address] [place], [place] [address]Dr. Airam Tripathi Sodium [Moles/Vol] 132 mmol/L Critically low 136-145 [facility] Comment on above: Performed By: #### B GERTRUDE, HSTROPN ####[facility] [address]ypvr[address] [place] [id number]. Airam Tripathi Urea nitrogen [Mass/Vol] 56.0 mg/dL Critically high 7.0-18.0 [facility] Comment on above: Performed By: #### B GERTRUDE HSTROPN ####[facility] [address]dxtxyg[address] [place] [id number]. Airam Tripathi Urea nitrogen/Creatinine [Mass ratio] 40.0 mg/mg Normal [facility] Comment on above: Performed By: #### B GERTRUDE HSTROPN ####[facility] Epmregyzbf[address] [place] [address]Dr. Airam Tripathi TROPONIN, HIGH SENSITIVITYon 11-16-2022 HSTROP 9.9 pg/mL Normal 4.0-51.3 [facility] Comment on above: Result Comment: CUT- OFF POINTS HAVE BEEN ESTABLISHED BASED ON THE FOURTH UNIVERSAL DEFINITIONS OF MYOCARDIALINFARCTION. THE UPPER REFERENCE LIMIT (URL) OF TROPONIN, DEFINED THE 99TH PERCENTILE OFcTnI DISTRIBUTION IN A REFERENCE POPULATION, HAS BEEN CONFIRMED THE DECISION THRESHOLDFOR [place] DIAGNOSIS. Performed By: #### B GERTRUDE HSTROPN ####[facility] [address]klrjmz4[address] [place] [address]Dr. Airam Tripathi XR CHEST 1 Von 11-16-2022 XR CHEST 1 V Normal [facility] CBC AUTO DIFFon 11-11-2022 BASO # 0.0 103/ul Normal 0.0-0.1 [facility] Comment on above: Performed By: #### C BC ####[facility] Bwfesqmlcd98[address] [place] [address]Dr. Airam Tripathi Basophils/100 WBC (Bld) 0.4 % Normal 0.2-2.0 [facility] Comment on above: Performed By: #### C BC ####[facility] Argmxjgmji4[address] [place] [address]Dr. Airam Tripathi EO # 0.4 103/ul Normal 0.0-0.7 [facility] Comment on above: Performed By: #### C BC ####[facility] H[address]sbdmkmw[address] [place] [address]Dr. Airam Tripathi Eosinophils/100 WBC (Bld) 4.6 % Normal 0.9-7.0 [facility] Comment on above: Performed By: #### C BC ####[facility] Xeehcrkbif16[address] [place] [address]Dr. Airam Tripathi Erythrocyte distribution width (RBC) [Ratio] 15.8 % Critically high 11.0-15.0 [facility] Comment on above: Performed By: #### C BC ####[facility] Vrgjirsmql[address] [place], [place] [address]Dr. Airam Tripathi Hematocrit (Bld) [Volume fraction] 30.3 % Critically low 36.0-48.0 [facility] Comment on above: Performed By: #### C BC ####[facility] Qbqgxncybl7[address] [place], [place] [address]Dr. Airam Tripathi Hemoglobin (Bld) [Mass/Vol] 9.3 g/dL Critically low 12.0-16.0 [facility] Comment on above: Performed By: #### C BC ####[facility] Ioohlfhevl4260[address] [place], [place] [address]Dr. Airam Tripathi IG # 0.03 10e3/ul Normal 0.00-0.03 [facility] Comment on above: Performed By: #### C BC ####[facility] Vcmgqgkngy23[address] [place], [place] [address]Dr. Airam Tripathi IG % 0.4 % Normal 0.0-0.5 [facility] Comment on above: Performed By: #### C BC ####[facility] Qutduepetj40[address] [place], [place] [address]Dr. Airam Tripathi LYMPH # 2.0 103/ul Normal 1.2-3.8 [facility] Comment on above: Performed By: #### C BC ####[facility] Cqgiijpkbw9435[address] [place], [place] [address]Dr. Airam Tripathi Lymphocytes/100 WBC (Bld) 24.5 % Normal 20.5-60.0 [facility] Comment on above: Performed By: #### C BC ####[facility] Tlmctejbiz0[address] [place], [place] [address]Dr. Selenaneil Tripathi MANUAL DIFF REQ NO Normal [facility] Comment on above: Performed By: #### C BC ####[facility] C[address]adrgnkhn47[address] [place] [address]Dr. Airam Deuce MCH (RBC) [Entitic mass] 28.9 pg Normal 26.7-34.0 [facility] Comment on above: Performed By: #### C BC ####[facility] Qunlhhnkrb4[address] [place] [address]Dr. Airam Deuec MCHC (RBC) [Mass/Vol] 30.7 g/dL Normal 29.9-35.2 [facility] Comment on above: Performed By: #### C BC ####[facility] Iatusmzedd8964 [place] [address]Dr. Selenaneil Tripathi MCV (RBC) [Entitic vol] 94.1 fL Normal 81.0-99.0 [facility] Comment on above: Performed By: #### C BC ####[facility] Bfywucjczc01[address] [place] [address]Dr. Airam Tripathi MONO # 0.7 103/ul Normal 0.3-0.8 [facility] Comment on above: Performed By: #### C BC ####[facility] Vbqstpzvtl1505 [place] [address]Dr. Airam Tripathi Monocytes/100 WBC (Bld) 8.3 % Normal 1.7-12.0 [facility] Comment on above: Performed By: #### C BC ####[facility] Htfqkhviyn4176 [place] [address]DrKianna Tripathi NEUT # 5.0 103/ul Normal 1.4-6.5 [facility] Comment on above: Performed By: #### C BC ####[facility] Bocmjfqkio9353 [place] [address]DrKianna Tripathi Neutrophils/100 WBC (Bld) 61.8 % Normal 43.0-75.0 [facility] Comment on above: Performed By: #### C BC ####[facility] Wilukleftw217[address] [place], [place] [address]Dr. Airam Tripathi Platelet mean volume (Bld) [Entitic vol] 9.4 fL Critically low 9.5-13.5 [facility] Comment on above: Performed By: #### C BC ####[facility] [address]izjfraqy[address] [place] [address]Dr. Airam Tripathi PLT 270 103/ul Normal 150-450 [facility] Comment on above: Performed By: #### C BC ####[facility] Nvhbmwyqzk8682 [place] [address]Dr. Airam Tripathi RBC 3.22 106/ul Critically low 4.20-5.40 [facility] Comment on above: Performed By: #### C BC ####[facility] Jexxhilrpa8[address] [place] [address]DrKianna Tripathi WBC 8.1 103/ul Normal 4.0-11.0 [facility] Comment on above: Performed By: #### C BC ####[facility] Oxehymmvcf50[address] [place] [address]DrKianna Tripathi PROF 14(COMP METB)on 023 Albumin [Mass/Vol] 3.2 g/dL Critically low 3.4-5.0 [facility] Comment on above: Performed By: #### C MP ####[facility] Hlcfazkilb7776 [place] [address]DrKianna Tripathi Albumin/Globulin [Mass ratio] 1.0 {ratio} Normal [facility] Comment on above: Performed By: #### C MP ####[facility] Ufzmjipsop86[address] [place] [address]DrKianna Tripathi ALP [Catalytic activity/Vol] 108 U/L Normal 46-116 [facility] Comment on above: Performed By: #### C MP ####[facility] Gstcizvhuj3663 [place] [address]DrKianna Tripathi ALT [Catalytic activity/Vol] 30 U/L Normal 14-59 [facility] Comment on above: Performed By: #### C MP ####[facility] Qnxzinrqmo[address] [place], [place] [address]DrKianna Tripathi Anion gap [Moles/Vol] 12.8 mmol/L Normal [facility] Comment on above: Performed By: #### C MP ####[facility] Prtpumpzri2279[address] [place], [place] [address]Dr. Airam Tripathi AST [Catalytic activity/Vol] 33 U/L Normal 15-37 [facility] Comment on above: Performed By: #### C MP ####[facility] Sksdqvkxhc413[address] [place], [place] [address]Dr. Airam Deuce Bilirubin [Mass/Vol] 0.2 mg/dL Normal 0.2-1.0 [facility] Comment on above: Performed By: #### C MP ####[facility] Fldkkameac108[address] [place], [place] [address]Dr. Airam Deuce Calcium [Mass/Vol] 8.3 mg/dL Critically low 8.5-10.1 [facility] Comment on above: Performed By: #### C MP ####[facility] Qwrbxgrqjg466[address] [place], [place] [address]Dr. Selenaneil Tripathi Chloride [Moles/Vol] 99 mmol/L Normal 98-107 [facility] Comment on above: Performed By: #### C MP ####[facility] Lijforfyuc1524[address] [place], [place] [address]Dr. Airam Tripathi CO2 [Moles/Vol] 27.6 mmol/L Normal 21.0-32.0 [facility] Comment on above: Performed By: #### C MP ####[facility] Pguuguhrzi7958[address] [place], [place] [address]Dr. Airam Deuce Creatinine [Mass/Vol] 2.01 mg/dL Critically high 0.55-1.02 [facility] Comment on above: Performed By: #### C MP ####[facility] Krocuhcqny00[address] [place], [place] [address]Dr. Airam Tripathi EGFR-AF PANAMANIAN 31 mL/min/1.73m2 Critically low >=60 [facility] Comment on above: Performed By: #### C MP ####[facility] Ywwkfwcyin666[address] [place], [place] [address]Dr. Airam Tripathi EGFR-NON AF PANAMANIAN 25 mL/min/1.73m2 Critically low >=60 [facility] Comment on above: Performed By: #### C MP ####[facility] Qrjdwpgvur13[address] [place] [address]Dr. Airam Tripathi Globulin (S) [Mass/Vol] 3.2 g/dL Normal [facility] Comment on above: Performed By: #### C MP ####[facility] Mxjjnkzrml6781 [place] [address]Dr. Airam Tripathi Glucose [Mass/Vol] 158 mg/dL Critically high 74-106 [facility] Comment on above: Performed By: #### C MP ####[facility] Qgbxclxilh6564[address] [place], [place] [address]Dr. Airam Tripathi Potassium [Moles/Vol] 5.4 mmol/L Critically high 3.5-5.1 [facility] Comment on above: Performed By: #### C MP ####[facility] Hvgkbbhfkr0054[address] [place], [place] [address]Dr. Airam Tripathi Protein [Mass/Vol] 6.4 g/dL Normal 6.4-8.2 [facility] Comment on above: Performed By: #### C MP ####[facility] Chiesirddo95[address] [place], [place] [address]Dr. Airam Tripathi Sodium [Moles/Vol] 134 mmol/L Critically low 136-145 [facility] Comment on above: Performed By: #### C MP ####[facility] Senqdausuk4427[address] [place], [place] [address]Dr. Airam Tripathi Urea nitrogen [Mass/Vol] 52.0 mg/dL Critically high 7.0-18.0 [facility] Comment on above: Performed By: #### C MP ####[facility] Wpwnhggjtc15[address] [place], [place] [address]Dr. Airam Tripathi Urea nitrogen/Creatinine [Mass ratio] 25.9 mg/mg Normal [facility] Comment on above: Performed By: #### C MP ####[facility] Nyjbfmxrvx670[address] [place], [place] [address]Dr. Airam Tripathi OSMOLALITYon 05-14-2023 Osmolality [Osmolality] 261 mosm/kg Critically low 275-295 [facility] Comment on above: Performed By: #### O SMO ####[facility] Lrrksuadsm99[address] [place], [place] [address]Dr. Airam Tripathi XR HIPS GUMARO 3_4V WO PELVISon 11-04-2022 XR HIPS GUMARO 3_4V WO PELVIS Normal [facility] XR KNEE LT 4V or >on 023 XR KNEE LT 4V or > Normal [facility] BNPon 11-03-2022 Natriuretic peptide B (Bld) [Mass/Vol] 1168.0 pg/mL Critically high <=900.0 [facility] Comment on above: Performed By: #### B CONTENT STRATEGIST, BMP ####[facility] Scfqkapvdf6[address] [place], [place] [address]Dr. Airam Tripathi CBC AUTO DIFFon 11-03-2022 BASO # 0.0 103/ul Normal 0.0-0.1 [facility] Comment on above: Performed By: #### C BC ####[facility] Kntkdplaxn317[address] [place], [place] [address]Dr. Airam Tripathi Basophils/100 WBC (Bld) 0.3 % Normal 0.2-2.0 [facility] Comment on above: Performed By: #### C BC ####[facility] Wnruvhrapj77[address] [place], [place] [address]Dr. Airam Tripathi EO # 0.2 103/ul Normal 0.0-0.7 [facility] Comment on above: Performed By: #### C BC ####[facility] Mkphvohmmp066[address] [place], [place] [address]Dr. Airam Tripathi Eosinophils/100 WBC (Bld) 1.9 % Normal 0.9-7.0 [facility] Comment on above: Performed By: #### C BC ####[facility] [address]epxwczpf8[address] [place], [place] [address]Dr. Airam Tripathi Erythrocyte distribution width (RBC) [Ratio] 15.2 % Critically high 11.0-15.0 [facility] Comment on above: Performed By: #### C BC ####[facility] [address]ewtpafss[address] [place] [address]Dr. Airam Tripathi Hematocrit (Bld) [Volume fraction] 34.3 % Critically low 36.0-48.0 [facility] Comment on above: Performed By: #### C BC ####[facility] Hwcldwmekw455[address] [place], [place] [address]Dr. Airam Tripathi Hemoglobin (Bld) [Mass/Vol] 11.0 g/dL Critically low 12.0-16.0 [facility] Comment on above: Performed By: #### C BC ####[facility] Hmvxfcomhd4090[address] [place], [place] [address]Dr. Airam Tripathi IG # 0.06 10e3/ul Critically high 0.00-0.03 [facility] Comment on above: Performed By: #### C BC ####[facility] Emzbrmhbfp[address] [place], [place] [address]Dr. Airam Tripathi IG % 0.5 % Normal 0.0-0.5 [facility] Comment on above: Performed By: #### C BC ####[facility] Ipfniitvjp32[address] [place], [place] [address]Dr. Airam Tripathi LYMPH # 2.3 103/ul Normal 1.2-3.8 [facility] Comment on above: Performed By: #### C BC ####[facility] Hjhlelpkdc2386[address] [place], [place] [address]Dr. Airam Tripathi Lymphocytes/100 WBC (Bld) 20.4 % Critically low 20.5-60.0 [facility] Comment on above: Performed By: #### C BC ####[facility] Znduhzrueh1929[address] [place], [place] [address]Dr. Airam Tripathi MANUAL DIFF REQ NO Normal [facility] Comment on above: Performed By: #### C BC ####[facility] Vnhneliyra7127[address] [place], [place] [address]Dr. Airam Tripathi MCH (RBC) [Entitic mass] 28.7 pg Normal 26.7-34.0 [facility] Comment on above: Performed By: #### C BC ####[facility] [address] [place] [id number]. Airam Deuce MCHC (RBC) [Mass/Vol] 32.1 g/dL Normal 29.9-35.2 [facility] Comment on above: Performed By: #### C BC ####[facility] Kiqxoapyxj9776 [place] [id number]. Airam Deuce MCV (RBC) [Entitic vol] 89.6 fL Normal 81.0-99.0 [facility] Comment on above: Performed By: #### C BC ####[facility] Tmhfnzcbaa[address] [place], [place] [address]Dr. Selenaneil Deuce MONO # 0.9 103/ul Critically high 0.3-0.8 [facility] Comment on above: Performed By: #### C BC ####[facility] Tkqjvkhfgi12[address] [place], [place] [address]Dr. Airam Tripathi Monocytes/100 WBC (Bld) 8.3 % Normal 1.7-12.0 [facility] Comment on above: Performed By: #### C BC ####[facility] Fjvzwhfvux6485[address] [place], [place] [address]Dr. Airam Tripathi NEUT # 7.8 103/ul Critically high 1.4-6.5 [facility] Comment on above: Performed By: #### C BC ####[facility] Alacckzybo8749[address] [place], [place] [address]Dr. Airam Tripathi Neutrophils/100 WBC (Bld) 68.6 % Normal 43.0-75.0 [facility] Comment on above: Performed By: #### C BC ####[facility] Ovspdulldj7454[address] [place], [place] [address]Dr. Airam Tripathi Platelet mean volume (Bld) [Entitic vol] 8.9 fL Critically low 9.5-13.5 [facility] Comment on above: Performed By: #### C BC ####[facility] Xtbkmrcdzn5788[address] [place], [place] [address]Dr. Airam Tripathi PLT 323 103/ul Normal 150-450 [facility] Comment on above: Performed By: #### C BC ####[facility] Umpfxdbvph4689 [place] [id number]. Airam Tripathi RBC 3.83 106/ul Critically low 4.20-5.40 [facility] Comment on above: Performed By: #### C BC ####[facility] Azplsijyrz7039 [place] [id number]. Airam Tripathi WBC 11.4 103/ul Critically high 4.0-11.0 [facility] Comment on above: Performed By: #### C BC ####[facility] Ocnuvhgfyj4018 [place] [id number]. Airam Tripathi BASO # 0.0 103/ul Normal 0.0-0.1 [facility] Comment on above: Performed By: #### C BC ####[facility] Yrdzypncky0116 [place] [id number]. Airam Tripathi Basophils/100 WBC (Bld) 0.2 % Normal 0.2-2.0 [facility] Comment on above: Performed By: #### C BC ####[facility] Tvugzlgwyk6822 [place] [id number]. Airam Tripathi EO # 0.1 103/ul Normal 0.0-0.7 [facility] Comment on above: Performed By: #### C BC ####[facility] Brnedbubib6942 [place] [id number]. Airam Tripathi Eosinophils/100 WBC (Bld) 0.7 % Critically low 0.9-7.0 [facility] Comment on above: Performed By: #### C BC ####[facility] Tdygdwiwmn2774 [place] [phone]. Airam Tripathi Erythrocyte distribution width (RBC) [Ratio] 15.4 % Critically high 11.0-15.0 [facility] Comment on above: Performed By: #### C BC ####[facility] Eztzxgecad4777 [place] [id number]. Airam Tripathi Hematocrit (Bld) [Volume fraction] 33.6 % Critically low 36.0-48.0 [facility] Comment on above: Performed By: #### C BC ####[facility] Swmtkpkfxj5216 [place] [address]Dr. Airam Tripathi Hemoglobin (Bld) [Mass/Vol] 10.9 g/dL Critically low 12.0-16.0 [facility] Comment on above: Performed By: #### C BC ####[facility] Hircwfuevc8513 [place] [address]Dr. Airam Tripathi IG # 0.04 10e3/ul Critically high 0.00-0.03 [facility] Comment on above: Performed By: #### C BC ####[facility] Ehmiekgotp177[address] [place], [place] [address]Dr. Airam Tripathi IG % 0.5 % Normal 0.0-0.5 [facility] Comment on above: Performed By: #### C BC ####[facility] Fvpvvlqxpp7[address] [place], [place] [address]Dr. Airam Tripathi LYMPH # 1.1 103/ul Critically low 1.2-3.8 [facility] Comment on above: Performed By: #### C BC ####[facility] Vttwqxlzgi7579[address] [place], [place] [address]Dr. Airam Tripathi Lymphocytes/100 WBC (Bld) 13.3 % Critically low 20.5-60.0 [facility] Comment on above: Performed By: #### C BC ####[facility] Nydtpietlf5401[address] [place], [place] [address]Dr. Airam Tripathi MANUAL DIFF REQ NO Normal [facility] Comment on above: Performed By: #### C BC ####[facility] Sljuhbyrwy[address] [place], [place] [address]Dr. Airam Tripathi MCH (RBC) [Entitic mass] 29.1 pg Normal 26.7-34.0 [facility] Comment on above: Performed By: #### C BC ####[facility] Sfollcwweq046[address] [place], [place] [address]Dr. Airam Tripathi MCHC (RBC) [Mass/Vol] 32.4 g/dL Normal 29.9-35.2 [facility] Comment on above: Performed By: #### C BC ####[facility] Vvukcngahs4734 [place] [id number]. Airam Tripathi MCV (RBC) [Entitic vol] 89.6 fL Normal 81.0-99.0 [facility] Comment on above: Performed By: #### C BC ####[facility] Csdwmuphym0842 [place] [phone]. Airam Tripathi MONO # 0.5 103/ul Normal 0.3-0.8 [facility] Comment on above: Performed By: #### C BC ####[facility] Oovuvkziyz[address] [place], [place] [address]Dr. Airam Tripathi Monocytes/100 WBC (Bld) 6.4 % Normal 1.7-12.0 [facility] Comment on above: Performed By: #### C BC ####[facility] Eohdujitnq4227[address] [place], [place] [address]Dr. Airam Tripathi NEUT # 6.5 103/ul Normal 1.4-6.5 [facility] Comment on above: Performed By: #### C BC ####[facility] Fswfnmeuqj[address] [place], [place] [address]Dr. Airam Tripathi Neutrophils/100 WBC (Bld) 78.9 % Critically high 43.0-75.0 [facility] Comment on above: Performed By: #### C BC ####[facility] Nftfrwhpws8[address] [place], [place] [address]Dr. Airam Tripathi Platelet mean volume (Bld) [Entitic vol] 9.4 fL Critically low 9.5-13.5 [facility] Comment on above: Performed By: #### C BC ####[facility] Qscwbdaycc[address] [place], [place] [address]Dr. Airam Tripathi PLT 314 103/ul Normal 150-450 [facility] Comment on above: Performed By: #### C BC ####[facility] W[address]ydnbbfv[address] [place], [place] [address]Dr. Airam Tripathi RBC 3.75 106/ul Critically low 4.20-5.40 [facility] Comment on above: Performed By: #### C BC ####[facility] [address]ubgnayrh[address]67 [place] [address]Dr. Selenaneil Deuce WBC 8.3 103/ul Normal 4.0-11.0 [facility] Comment on above: Performed By: #### C BC ####[facility] E[address]ylpnasu24[address] [place] [address]Dr. Selenaneil Tripathi CT HEAD WO CONon 11-03-2022 CT HEAD WO CON Normal [facility] PROF 14(COMP METB)on 023 Albumin [Mass/Vol] 3.2 g/dL Critically low 3.4-5.0 [facility] Comment on above: Performed By: #### C MP ####[facility] Qjburzzotr[address] [place], [place] [address]Dr. Airam Tripathi Albumin/Globulin [Mass ratio] 0.9 {ratio} Normal [facility] Comment on above: Performed By: #### C MP ####[facility] Qdtlgnzhfy[address] [place], [place] [address]Dr. Airam Tripathi ALP [Catalytic activity/Vol] 109 U/L Normal 46-116 [facility] Comment on above: Performed By: #### C MP ####[facility] Apspendabg9306[address] [place], [place] [address]Dr. Airam Tripathi ALT [Catalytic activity/Vol] 25 U/L Normal 14-59 [facility] Comment on above: Performed By: #### C MP ####[facility] Eoohqhniha6184 [place] [address]Dr. Airam Tripathi Anion gap [Moles/Vol] 10.9 mmol/L Normal [facility] Comment on above: Performed By: #### C MP ####[facility] Tvrfmbvlxf2427 [place] [address]Dr. Airam Tripathi AST [Catalytic activity/Vol] 24 U/L Normal 15-37 [facility] Comment on above: Performed By: #### C MP ####[facility] Zhbnonphts0983 [place] [address]Dr. Airam Tripathi Bilirubin [Mass/Vol] 0.3 mg/dL Normal 0.2-1.0 [facility] Comment on above: Performed By: #### C MP ####[facility] Mtvtyclqsp8692 [place] [address]Dr. Airam Tripathi Calcium [Mass/Vol] 8.6 mg/dL Normal 8.5-10.1 [facility] Comment on above: Performed By: #### C MP ####[facility] Rgmksjihao3169 [place] [address]Dr. Airam Tripathi Chloride [Moles/Vol] 95 mmol/L Critically low 98-107 [facility] Comment on above: Performed By: #### C MP ####[facility] Vevcvclnde7199 [place] [address]Dr. Airam Tripathi CO2 [Moles/Vol] 27.8 mmol/L Normal 21.0-32.0 [facility] Comment on above: Performed By: #### C MP ####[facility] Zrasqtjagu[address] [place], [place] [address]Dr. Airam Tripathi Creatinine [Mass/Vol] 1.07 mg/dL Critically high 0.55-1.02 [facility] Comment on above: Performed By: #### C MP ####[facility] Tltjilxkcz7[address] [place], [place] [address]Dr. Airam Tripathi EGFR-AF PANAMANIAN >60 Normal >=60 [facility] Comment on above: Performed By: #### C MP ####[facility] Arpsouevvb9356 [place] [address]Dr. Airam Tripathi EGFR-NON AF PANAMANIAN 52 mL/min/1.73m2 Critically low >=60 [facility] Comment on above: Performed By: #### C MP ####[facility] Pnnmvcarny9561 [place] [address]Dr. Airam Tripathi Globulin (S) [Mass/Vol] 3.5 g/dL Normal [facility] Comment on above: Performed By: #### C MP ####[facility] Ukjchmnbke2666 [place] [address]Dr. Airam Deuce Glucose [Mass/Vol] 86 mg/dL Normal 74-106 [facility] Comment on above: Performed By: #### C MP ####[facility] Tlgkiyakdg7185 [place] [phone]. Airam Tripathi Potassium [Moles/Vol] 4.7 mmol/L Normal 3.5-5.1 [facility] Comment on above: Performed By: #### C MP ####[facility] Uuojjhtldz1331 [place] [phone]. Airam Tripathi Protein [Mass/Vol] 6.7 g/dL Normal 6.4-8.2 [facility] Comment on above: Performed By: #### C MP ####[facility] O[address]pdmqpxv[address] [place], [place] [address]Dr. Airam Tripathi Sodium [Moles/Vol] 129 mmol/L Critically low 136-145 [facility] Comment on above: Performed By: #### C MP ####[facility] Wemnnciczy5407[address] [place], [place] [address]Dr. Airam Tripathi Urea nitrogen [Mass/Vol] 19.0 mg/dL Critically high 7.0-18.0 [facility] Comment on above: Performed By: #### C MP ####[facility] Kineasckrj015[address] [place], [place] [address]Dr. Airam Tripathi Urea nitrogen/Creatinine [Mass ratio] 17.8 mg/mg Normal [facility] Comment on above: Performed By: #### C MP ####[facility] Wvzzopfriq6[address] [place], [place] [address]Dr. Airam Tripathi PROF CHEM 8 (BAS METB)on Anion gap [Moles/Vol] 9.0 mmol/L Normal [facility] Comment on above: Performed By: #### B CONTENT STRATEGIST, BMP ####[facility] Twlgmamdkg[address] [place], [place] [address]Dr. Airam Tripathi Calcium [Mass/Vol] 8.5 mg/dL Normal 8.5-10.1 [facility] Comment on above: Performed By: #### B CONTENT STRATEGIST, BMP ####[facility] Zrtiysqdrc[address] [place], [place] [address]Dr. Airam Tripathi Chloride [Moles/Vol] 93 mmol/L Critically low 98-107 [facility] Comment on above: Performed By: #### B CONTENT STRATEGIST, BMP ####[facility] Iiajcmykdd5699[address] [place], [place] [address]Dr. Selenaneil Tripathi CO2 [Moles/Vol] 28.1 mmol/L Normal 21.0-32.0 [facility] Comment on above: Performed By: #### B CONTENT STRATEGIST, BMP ####[facility] Dijokltxgn005233 [address] [place], [place] [address]Dr. Selenaneil Deuce Creatinine [Mass/Vol] 1.17 mg/dL Critically high 0.55-1.02 [facility] Comment on above: Performed By: #### B CONTENT STRATEGIST, BMP ####[facility] Ngakldcxyu[address] [place], [place] [address]Dr. Airam Tripathi EGFR-AF PANAMANIAN 57 mL/min/1.73m2 Critically low >=60 [facility] Comment on above: Performed By: #### B CONTENT STRATEGIST, BMP ####[facility] Joonyenbqy8[address] [place], [place] [address]Dr. Airam Tripathi EGFR-NON AF PANAMANIAN 47 mL/min/1.73m2 Critically low >=60 [facility] Comment on above: Performed By: #### B CONTENT STRATEGIST, BMP ####[facility] Dqaubflnjm0718[address] [place], [place] [address]Dr. Airam Tripathi Glucose [Mass/Vol] 107 mg/dL Critically high 74-106 [facility] Comment on above: Performed By: #### B CONTENT STRATEGIST, BMP ####[facility] Hivlonjjfq9427[address] [place], [place] [address]Dr. Airam Tripathi Potassium [Moles/Vol] 4.1 mmol/L Normal 3.5-5.1 [facility] Comment on above: Performed By: #### B CONTENT STRATEGIST, BMP ####[facility] Lacenupsnx12[address] [place], [place] [address]Dr. Airam Tripathi Sodium [Moles/Vol] 126 mmol/L Critically low 136-145 Th [facility] Comment on above: Performed By: #### B CONTENT STRATEGIST, BMP ####[facility] Amvqhjtypo85[address] [place], [place] [address]Dr. Airam Tripathi Urea nitrogen [Mass/Vol] 20.0 mg/dL Critically high 7.0-18.0 [facility] Comment on above: Performed By: #### B CONTENT STRATEGIST, VERONICA ####[facility] R[address] [place], [place] [address]Uz. Airam Tripathi Urea nitrogen/Creatinine [Mass ratio] 17.1 mg/mg Normal [facility] Comment on above: Performed By: #### B CONTENT STRATEGIST, BMP ####[facility] Bq[address]qljvtn86[address] [place], [place] [address]Tf. Airam Tripathi XR CHEST 1 Von 11-03-2022 XR CHEST 1 V Normal [facility] Activated partial thrombopla stin time (aPTT) in platelet poor plasma by coagulation aOrdered By: Favian Helm on 10-28-2022 aPTT Coag (PPP) [Time] 31.7 s 25.1-36.5 [facility] Alanine aminotransferase [En zymatic activity/volume] in Serum or PlasmaOrdered By: Favian Helm on 10-28-2022 ALT [Catalytic activity/Vol] 14 U/L 7-52 [facility] Albumin [Mass/volume] in Ser um or Plasma by Bromocresol green (BCG) dye binding methoOrdered By: Favian Helm on 10-28-2022 Albumin BCG dye [Mass/Vol] 3.6 g/dL 3.5-5.7 [facility] Alkaline phosphatase [Enzyma tic activity/volume] in Serum or PlasmaOrdered By: Favian Helm on 10-28-2022 ALP [Catalytic activity/Vol] 84 U/L 34-104 [facility] Aspartate aminotransferase [ Enzymatic activity/volume] in Serum or PlasmaOrdered By: Favian Helm on 10-28-2022 AST [Catalytic activity/Vol] 21 U/L 13-39 [facility] B-Type Natriuretic Peptideon 10-28-2022 Natriuretic peptide B (Bld) [Mass/Vol] 551.0 pg/mL High 5-100 [facility] Comment on above: Result Comment: PERF ORMED BY: [place] [address] [place] [address] PATHOLOGIST WALL WASHER TANNER GAVIN M.D. Performed By: #### V [id number], MG, BMP, JOSE, FE and TIBC, RETIC #### [address] Basophils Auto (Bld) [#/Vol] Ordered By: Favian Helm on 10-28-2022 Basophils (Bld) [#/Vol] 0.0 10*3/uL 0.0-0.2 [facility] Basophils/100 WBC Auto (Bld) Ordered By: Favian Helm on 10-28-2022 Basophils/100 WBC (Bld) 0.4 % . [facility] Bilirubin.total [Mass/volume ] in Serum or PlasmaOrdered By: Favian Helm on 10-28-2022 Bilirubin [Mass/Vol] 0.3 mg/dL 0.3-1.[address] [facility] [address] head/brain wo conon 10-28 CT head/brain wo con [facility] [address] [place] [address] CT Scan Report Signed Patient: Mabel Moser MR#: [id number] : 1960 Acct:[id number] Age/Sex: 62 / F ADM Date: 10/28/22 Loc: ER Room: Type: [facility] ER Attending Dr: Copies to: Favian [...] Baljinder Ball M.D.10/28/2022 7:46 PM Dictation Location: [place] [address] Transcribed By: [facility] 10/28/221945 Dictated By: Baljinder Ball DO 10/28/221934 Signed By: 10/28/221945 Normal [facility] Calcium [Mass/volume] in Ser um or PlasmaOrdered By: Favian Helm on 10-28-2022 Calcium [Mass/Vol] 8.2 mg/dL 8.6-10.3 [facility] Carbon dioxide, total [Moles /volume] in Serum or PlasmaOrdered By: Favian Helm on 10-28-2022 CO2 [Moles/Vol] 25.7 mmol/L 21.0-31.0 [facility] Chloride [Moles/volume] in S andrea or PlasmaOrdered By: Favian Helm on 10-28-2022 Chloride [Moles/Vol] 98 mmol/L 98-107 [facility] Complete Blood Count Auto Di ffon 10-28-2022 Basophils (Bld) [#/Vol] 0.0 10*3/uL Normal 0.0-0.2 [facility] Comment on above: Result Comment: PERF ORMED BY: [facility] [address] [place] [address] PATHOLOGIST WALL WASHER TANNER GAVIN M.D. Performed By: #### V [id number], MG, BMP, JOSE, FE and TIBC, RETIC #### [facility] [address] [place] [address] [place] Basophils/100 WBC (Bld) 0.4 % Normal . [facility] Comment on above: Performed By: #### V [id number], MG, BMP, JOSE, FE and TIBC, RETIC #### [facility] [address] [place] [address] [place] Eosinophils (Bld) [#/Vol] 0.1 10*3/uL Normal 0.0-0.45 [facility] Comment on above: Performed By: #### V [id number], MG, BMP, JOSE, FE and TIBC, RETIC #### [address] Eosinophils/100 WBC (Bld) 1.0 % Normal . [facility] Comment on above: Performed By: #### V [id number], MG, BMP, JOSE, FE and TIBC, RETIC #### [address] Erythrocyte distribution width (RBC) [Ratio] 16.5 % High 11.9-15.3 [facility] Comment on above: Performed By: #### V [id number], MG, BMP, JOSE, FE and TIBC, RETIC #### [address] Hematocrit (Bld) [Volume fraction] 29.9 % Low 34.0-46.4 [facility] Comment on above: Performed By: #### V [id number], MG, BMP, JOSE, FE and TIBC, RETIC #### [address] Hemoglobin (Bld) [Mass/Vol] 9.6 g/dL Low 11.8-15.4 [facility] Comment on above: Performed By: #### V [id number], MG, BMP, JOSE, FE and TIBC, RETIC #### [address] Lymphocytes (Bld) [#/Vol] 0.8 10*3/uL Low 1.00-4.8 [facility] Comment on above: Performed By: #### V [id number], MG, BMP, JOSE, FE and TIBC, RETIC #### [address] Lymphocytes/100 WBC (Bld) 12.8 % Normal . [facility] Comment on above: Performed By: #### V [id number], MG, BMP, JOSE, FE and TIBC, RETIC #### [address] MCH (RBC) [Entitic mass] 28.3 pg Normal 24.7-34.3 [facility] Comment on above: Performed By: #### V [id number], MG, BMP, JOSE, FE and TIBC, RETIC #### [address] MCV (RBC) [Entitic vol] 88.3 fL Normal 80-100 [facility] Comment on above: Performed By: #### V [id number], MG, BMP, JOSE, FE and TIBC, RETIC #### [address] Mean Corpuscular HGB Conc 32.0 g/dL Normal 32.0-35.0 [facility] Comment on above: Performed By: #### V [id number], MG, BMP, JOSE, FE and TIBC, RETIC #### [address] Monocytes (Bld) [#/Vol] 0.2 10*3/uL Normal 0.0-0.8 [facility] Comment on above: Performed By: #### V [id number], MG, BMP, JOSE, FE and TIBC, RETIC #### [address] Monocytes/100 WBC (Bld) 17.29 % Normal 0.00-20.00 [facility] Comment on above: Performed By: #### V [id number], MG, BMP, JOSE, FE and TIBC, RETIC #### [address] Monocytes/100 WBC (Bld) 2.5 % Normal . [facility] Comment on above: Performed By: #### V [id number], MG, BMP, JOSE, FE and TIBC, RETIC #### [address] Neutrophils (Bld) [#/Vol] 5.5 10*3/uL Normal 1.8-7.7 [facility] Comment on above: Performed By: #### V [id number], MG, BMP, JOSE, FE and TIBC, RETIC #### [address] Neutrophils/100 WBC (Bld) 83.3 % Normal . [facility] Comment on above: Performed By: #### V [id number], MG, BMP, JOSE, FE and TIBC, RETIC #### [address] NRBC% 0.0 /100{WBC} Normal 0-0.5 [facility] Comment on above: Performed By: #### V [id number], MG, BMP, JOSE, FE and TIBC, RETIC #### [address] Platelet mean volume (Bld) [Entitic vol] 7.3 fL Normal 6.3-10.7 [facility] Comment on above: Performed By: #### V [id number], MG, BMP, JOSE, FE and TIBC, RETIC #### [address] Platelets (Bld) [#/Vol] 260 10*3/uL Normal 150-450 [facility] Comment on above: Performed By: #### V [id number], MG, BMP, JOSE, FE and TIBC, RETIC #### [address] RBC (Bld) [#/Vol] 3.38 10*6/uL Low 3.60-5.00 [facility] Comment on above: Performed By: #### V [id number], MG, BMP, JOSE, FE and TIBC, RETIC #### [address] WBC (Bld) [#/Vol] 6.6 10*3/uL Normal 3.8-11.6 [facility] Comment on above: Performed By: #### V [id number], MG, BMP, JOSE, FE and TIBC, RETIC #### [facility] [address] Comprehensive Metabolic Pane elena 10-28-2022 Albumin [Mass/Vol] 3.6 g/dL Normal 3.5-5.7 [facility] Comment on above: Performed By: #### V [id number], MG, BMP, JOSE, FE and TIBC, RETIC #### [address] Albumin/Globulin [Mass ratio] 1.6 {ratio} Normal [facility]. [facility] Comment on above: Performed By: #### V [id number], MG, BMP, JOSE, FE and TIBC, RETIC #### [address] ALP [Catalytic activity/Vol] 84 U/L Normal 34-104 [facility] Comment on above: Performed By: #### V [id number], MG, BMP, JOSE, FE and TIBC, RETIC #### [address] ALT [Catalytic activity/Vol] 14 U/L Normal 7-52 [facility] Comment on above: Performed By: #### V [id number], MG, BMP, JOSE, FE and TIBC, RETIC #### [address] Anion gap [Moles/Vol] 10.0 mmol/L Normal 6.0-15.0 [facility] Comment on above: Performed By: #### V [id number], MG, BMP, JOSE, FE and TIBC, RETIC #### [address] AST [Catalytic activity/Vol] 21 U/L Normal 13-39 [facility] Comment on above: Performed By: #### V [id number], MG, BMP, JOSE, FE and TIBC, RETIC #### [address] Bilirubin [Mass/Vol] 0.3 mg/dL Normal 0.3-1.0 [facility] Comment on above: Performed By: #### V [id number], MG, BMP, JOSE, FE and TIBC, RETIC #### [facility] [address] Calcium [Mass/Vol] 8.2 mg/dL Low 8.6-10.3 [facility] Comment on above: Performed By: #### V [id number], MG, BMP, JOSE, FE and TIBC, RETIC #### [facility] [address] Chloride [Moles/Vol] 98 mmol/L Normal 98-107 [facility] Comment on above: Performed By: #### V [id number], MG, BMP, JOSE, FE and TIBC, RETIC #### [facility] [address] CO2 [Moles/Vol] 25.7 mmol/L Normal 21.0-31.0 [facility] Comment on above: Performed By: #### V [id number], MG, BMP, JOSE, FE and TIBC, RETIC #### [facility] [address] Creatinine [Mass/Vol] 1.23 mg/dL High 0.60-1.20 [facility] Comment on above: Performed By: #### V [id number], MG, BMP, JOSE, FE and TIBC, RETIC #### [facility] [address] Creatinine Clr Calc Pharmacy 48.79 [facility] Comment on above: Performed By: #### V [id number], MG, BMP, JOSE, FE and TIBC, RETIC #### [facility] [address] [place] [address] [place] GFR/1.73 sq M.predicted MDRD (S/P/Bld) [Vol rate/Area] 50.309 mL/min/{1.73_m2} [facility] Comment on above: Performed By: #### V [id number], MG, BMP, JOSE, FE and TIBC, RETIC #### [facility] [address] Globulin (S) [Mass/Vol] 2.3 g/dL Normal [facility] Comment on above: Performed By: #### V [id number], MG, BMP, JOSE, FE and TIBC, RETIC #### [address] Glucose [Mass/Vol] 98 mg/dL Normal 70-100 [facility] Comment on above: Result Comment: [facility] Glucose Reference Range is dependent on time and content of last meal. Glucose of more than 200 mg/dL in a nonstressed, ambulatory subject supports the diagnosis of Diabetes Mellitus. ADA recommended reference range Performed By: #### V [id number], MG, BMP, JOSE, FE and TIBC, RETIC #### [address] Potassium [Moles/Vol] 4.7 mmol/L Normal 3.5-5.1 [facility] Comment on above: Performed By: #### V [id number], MG, BMP, JOSE, FE and TIBC, RETIC #### [address] Protein [Mass/Vol] 5.9 g/dL Low 6.4-8.9 [facility] Comment on above: Performed By: #### V [id number], MG, BMP, JOSE, FE and TIBC, RETIC #### [address] Sodium [Moles/Vol] 129 mmol/L Low 136-145 [facility] Comment on above: Performed By: #### V [id number], MG, BMP, JOSE, FE and TIBC, RETIC #### [address] Urea nitrogen [Mass/Vol] 36 mg/dL High 7-25 [facility] Comment on above: Performed By: #### V [id number], MG, BMP, JOSE, FE and TIBC, RETIC #### [place] [address] [facility] Creatine Kinaseon 10-28-2022 CK [Catalytic activity/Vol] 45 U/L Normal [facility] Comment on above: Performed By: #### V [id number], MG, BMP, JOSE, FE and TIBC, RETIC #### [facility] [address] [place] [id number] [facility] Creatine kinase [Enzymatic a ctivity/volume] in Serum or PlasmaOrdered By: Favian Helm on 10-28-2022 CK [Catalytic activity/Vol] 45 U/L [facility] Creatinine [Mass/volume] in Serum or PlasmaOrdered By: Favian Helm on 10-28-2022 Creatinine [Mass/Vol] 1.23 mg/dL 0.60-1.20 [facility] ECG 12 lead ECGon 10-28-2022 ECG 12 lead ECG [facility] [address] [place] [address] Electrocardiograph Report Signed Patient: Mabel Moser MR#: [id number] : 1960 Acct:[id number] Age/Sex: 62 / F ADM Date: 10/28/22 Loc: ER Room: Type: [facility] ER Attending Dr: Ordering Provider: Favian [...] normal variant Confirmed by Chris MAURO DO ([id number]) on 10/28/2022 8:40:44 PM Referred By: Electronically Signed By:Chris MAURO DO Transcribed By: MUS Signed By Chris Mauro DO 0 10/28/222039 Normal [facility] Eosinophils Auto (Bld) [#/Vo l]Ordered By: Favian Helm on 10-28-2022 Eosinophils (Bld) [#/Vol] 0.1 10*3/uL 0.0-0.45 [facility] Eosinophils/100 WBC Auto (Bl d)Ordered By: Favian Helm on 10-28-2022 Eosinophils/100 WBC (Bld) 1.0 % . [facility] Erythrocyte distribution wid th Auto (RBC) [Ratio]Ordered By: Favian Helm on 10-28-2022 Erythrocyte distribution width (RBC) [Ratio] 16.5 % 11.9-15.3 [facility] Globulin Calc (S) [Mass/Vol] Ordered By: Favian Helm on 10-28-2022 Globulin (S) [Mass/Vol] 2.3 g/dL [facility] Glucose [Mass/volume] in Ser um or PlasmaOrdered By: Favian Helm on 10-28-2022 Glucose [Mass/Vol] 98 mg/dL 70-100 [facility] Comment on above: ADA recommended refe rence rangeRandom Glucose Reference Range is dependent on time and content of last meal. Glucose of more than 200 mg/dL in a nonstressed, ambulatory subject supports the diagnosis of Diabetes Mellitus. Hematocrit Auto (Bld) [Volum e fraction]Ordered By: Favian Helm on 10-28-2022 Hematocrit (Bld) [Volume fraction] 29.9 % 34.0-46.4 [facility] Hemoglobin [Mass/volume] in BloodOrdered By: Favian Helm 10-28-2022 Hemoglobin (Bld) [Mass/Vol] 9.6 g/dL 11.8-15.4 [facility] Laboratory - CoagulationOrde red By: Favian Helm on 10-28-2022 PT Coag (PPP) [Time] 11.0 s 9.0-12.9 [facility] Leukocytes [#/volume] correc nicol for nucleated erythrocytes in Blood by Automated counOrdered By: Favian Helm on 10-28-2022 WBC corrected for nucl RBC Auto (Bld) [#/Vol] 6.6 10*3/uL 3.8-11.6 [facility] Lymphocytes Auto (Bld) [#/Vo l]Ordered By: Favian Helm on 10-28-2022 Lymphocytes (Bld) [#/Vol] 0.8 10*3/uL 1.00-4.8 [facility] Lymphocytes/100 WBC Auto (Bl d)Ordered By: Favian Helm on 10-28-2022 Lymphocytes/100 WBC (Bld) 12.8 % . [facility] MCH Auto (RBC) [Entitic mass ]Ordered By: Favian Helm on 10-28-2022 MCH (RBC) [Entitic mass] 28.3 pg 24.7-34.3 [facility] MCHC Auto (RBC) [Mass/Vol]Or dered By: Favian Helm on 10-28-2022 MCHC (RBC) [Mass/Vol] 32.0 g/dL 32.0-35.0 [facility] MCV Auto (RBC) [Entitic vol] Ordered By: Favian Helm on 10-28-2022 MCV (RBC) [Entitic vol] 88.3 fL 80-100 [facility] Magnesiumon 10-28-2022 Magnesium [Mass/Vol] 1.9 mg/dL Normal 1.9-2.7 [facility] Comment on above: Result Comment: PERF ORMED BY: [place] [address] PATHOLOGIST WALL WASHER TANNER GAVIN M.D. Performed By: #### V [id number], MG, BMP, JOSE, FE and TIBC, RETIC #### [address] Magnesium [Mass/volume] in S andrea or PlasmaOrdered By: Favian Helm on 10-28-2022 Magnesium [Mass/Vol] 1.9 mg/dL 1.9-2.7 [facility] Monocyte distribution width [Entitic volume] in Blood by AutomatedOrdered By: Favian Helm on 10-28-2022 Monocyte distribution width Auto (Bld) [Entitic vol] 17.29 % 0.00-20.00 [facility] Monocytes Auto (Bld) [#/Vol] Ordered By: Favian Helm on 10-28-2022 Monocytes (Bld) [#/Vol] 0.2 10*3/uL 0.0-0.8 [facility] Monocytes/100 WBC Auto (Bld) Ordered By: Favian Helm on 10-28-2022 Monocytes/100 WBC (Bld) 2.5 % . [facility] Natriuretic peptide B [Mass/ Vol]Ordered By: Favian Helm on 10-28-2022 Natriuretic peptide B (Bld) [Mass/Vol] 551.0 pg/mL 5-100 [facility] Neutrophils Auto (Bld) [#/Vo l]Ordered By: Favian Helm on 10-28-2022 Neutrophils (Bld) [#/Vol] 5.5 10*3/uL 1.8-7.7 [facility] Neutrophils/100 WBC Auto (Bl d)Ordered By: Favian Helm on 10-28-2022 Neutrophils/100 WBC (Bld) 83.3 % . [facility] No Panel InformationOrdered By: Favian Helm on 10-28-2022 Estimated GFR (CKD-EPI) 50.309 mL/Min [facility] Creatinine Clearance (Chem 48.79 [facility] Nucleated erythrocytes [Pres ence] in Blood by Automated countOrdered By: Favian Helm on 10-28-2022 Nucleated RBC Auto Ql (Bld) 0.0 /100{WBC} 0-0.5 [facility] Partial Thromboplastin Timeo n 10-28-2022 aPTT Coag (Bld) [Time] 31.7 s Normal 25.1-36.5 [facility] Comment on above: Result Comment: PERF ORMED BY: [facility] [address] [place] [address] PATHOLOGIST WALL WASHER TANNER GAVIN M.D. Performed By: #### V [id number], MG, BMP, JOSE, FE and TIBC, RETIC #### [facility] [address] Platelet mean volume Auto (B ld) [Entitic vol]Ordered By: Favian Helm on 10-28-2022 Platelet mean volume (Bld) [Entitic vol] 7.3 fL 6.3-10.7 [facility] Platelet poor plasma interna tional normalized ratio (INR) by coagulation assay (relatOrdered By: Favian Helm on 10-28-2022 INR Coag (PPP) [Relative time] 1.0 {INR} [facility] Comment on above: INR Therapeutic Rang [...] Platelets (Bld) [#/Vol] 260 10*3/uL 150-450 [facility] Potassium [Moles/volume] in Serum or PlasmaOrdered By: Favian Helm on 10-28-2022 Potassium [Moles/Vol] 4.7 mmol/L 3.5-5.1 [facility] Protein [Mass/volume] in Ser um or PlasmaOrdered By: Favian Helm on 10-28-2022 Protein [Mass/Vol] 5.9 g/dL 6.4-8.9 [facility] Prothrombin Time INRon 10-28 INR Coag (PPP) [Relative time] 1.0 {INR} Normal [facility] Comment on above: Result Comment: INR [...] 3 - 4.5 Performed By: #### V [id number], MG, BMP, JOSE, FE and TIBC, RETIC #### [facility] [address] [place] [address] [place] PT Coag (PPP) [Time] 11.0 s Normal 9.0-12.9 [facility] Comment on above: Performed By: #### V [id number], MG, BMP, JOSE, FE and TIBC, RETIC #### [facility] [address] [place] [address] [place] RBC Auto (Bld) [#/Vol]Ordere d By: Favian Helm on 10-28-2022 RBC (Bld) [#/Vol] 3.38 10*6/uL 3.60-5.00 [facility] Serum or plasma albumin/glob ulin mass ratioOrdered By: Favian Helm on 10-28-2022 Albumin/Globulin [Mass ratio] 1.6 {ratio} [facility] Serum or plasma anion gap de terminationOrdered By: Favian Helm on 10-28-2022 Anion gap [Moles/Vol] 10.0 mmol/L 6.0-15.0 [facility] Sodium [Moles/volume] in Ser um or PlasmaOrdered By: Favian Helm on 10-28-2022 Sodium [Moles/Vol] 129 mmol/L 136-145 [facility] Troponin I High Sensitivityo n 10-28-2022 Troponin I High Sensitivity 5.8 pg/mL Normal 0.0-15.0 [facility] Comment on above: Result Comment: PERF ORMED BY: [facility] [address] [place] [address] PATHOLOGIST WALL WASHER TANNER GAVIN M.D. Performed By: #### V [id number], MG, BMP, JOSE, FE and TIBC, RETIC #### [address] Troponin I.cardiac [Mass/vol ume] in Serum or Plasma by Detection limit <= 0.01 ng/Ordered By: Favian Helm on 10-28-2022 Troponin I.cardiac DL <= 0.01 ng/mL [Mass/Vol] 5.8 pg/mL 0.0-15.0 [facility] Urea nitrogen [Mass/volume] in Serum or PlasmaOrdered By: Favian Helm on 10-28-2022 Urea nitrogen [Mass/Vol] 36 mg/dL 7-25 [facility] WBC Auto (Bld) [#/Vol]Ordere d By: aFvian Helm on 10-28-2022 WBC (Bld) [#/Vol] 6.6 10*3/uL 3.8-11.6 [facility] XR chest 2V*on 10-28-2022 XR chest 2V* [facility] [address] [place] [address] XRay Report Signed Patient: Mabel Moser MR#: [id number] : 1960 Acct:[id number] Age/Sex: 62 / F ADM Date: 10/28/22 Loc: ER Room: Type: [facility] ER Attending Dr: Copies to: Favian Helm PA-C Ordering Provider: Favian Helm PA-C Date of Service: 10/28/22 XR/XR chest 2V*: Shortness of Breath/Dyspnea Plain film chest 2 view HISTORY: Fluid overload. Shortness of breath. Headache. COMPARISON: 08/31/2018 FINDINGS: SUPPORT DEVICES: None POSTSURGICAL CHANGES: Right Xclfqz-t-Qwko intact with tip overlying the distal SVC. HEART: Within normal limits PULMONARY RAI: Within normal limits MEDIASTINUM: Unremarkable LUNGS AND PLEURA: No acute lung process, pleural effusion or pneumothorax identified. BONY STRUCTURES: Intact ADDITIONAL FINDINGS None XR/XR chest 2V* IMPRESSION: No acute process. Impression dictated by: Baljinder Ball M.D.10/28/2022 7:50 PM Dictation Location: [place] [address] Transcribed By: [facility] 10/28/221949 Dictated By: Baljinder Ball DO 10/28/221945 Signed By: 10/28/221949 Normal [facility] BNPon 10-26-2022 Natriuretic peptide B (Bld) [Mass/Vol] 2657.0 pg/mL Critically high <=900.0 [facility] Comment on above: Performed By: #### C MP, BNP ####[facility] [address] [place] [address]Dr. Airam Tripathi CBC AUTO DIFFon 10-26-2022 BASO # 0.0 103/ul Normal 0.0-0.1 [facility] Comment on above: Performed By: #### C BC ####[facility] [address] [place] [address]DrKianna Tripathi Basophils/100 WBC (Bld) 0.5 % Normal 0.2-2.0 [facility] Comment on above: Performed By: #### C BC ####[facility] [address] [place], [place] [address]Dr. Airam Tripathi EO # 0.3 103/ul Normal 0.0-0.7 [facility] Comment on above: Performed By: #### C BC ####[facility] [address] [place], [place] [address]Dr. Airam Tripathi Eosinophils/100 WBC (Bld) 4.8 % Normal 0.9-7.0 [facility] Comment on above: Performed By: #### C BC ####[facility] [address] [place], [place] [address]Dr. Airam Tripathi Erythrocyte distribution width (RBC) [Ratio] 15.5 % Critically high 11.0-15.0 [facility] Comment on above: Performed By: #### C BC ####[facility] [address] [place], [place] [address]Dr. Airam Tripathi Hematocrit (Bld) [Volume fraction] 27.7 % Critically low 36.0-48.0 [facility] Comment on above: Performed By: #### C BC ####[facility] [address] [place], [place] [address]Dr. Airam Tripathi Hemoglobin (Bld) [Mass/Vol] 8.8 g/dL Critically low 12.0-16.0 [facility] Comment on above: Performed By: #### C BC ####[facility] [address] [place], [place] [address]Dr. Airam Tripathi IG # 0.03 10e3/ul Normal 0.00-0.03 [facility] Comment on above: Performed By: #### C BC ####[facility] [address] [place], [place] [address]Dr. Airam Tripathi IG % 0.5 % Normal 0.0-0.5 [facility] Comment on above: Performed By: #### C BC ####[facility] [address] [place], [place] [address]DrKianna Tripathi LYMPH # 1.6 103/ul Normal 1.2-3.8 [facility] Comment on above: Performed By: #### C BC ####[facility] [address] [place] [address]DrKianna Tripathi Lymphocytes/100 WBC (Bld) 25.5 % Normal 20.5-60.0 [facility] Comment on above: Performed By: #### C BC ####[facility] [address] [place], [place] [address]DrKianna Tripathi MANUAL DIFF REQ NO Normal [facility] Comment on above: Performed By: #### C BC ####[facility] [address] [place], [place] [address]DrKianna Tripathi MCH (RBC) [Entitic mass] 29.0 pg Normal 26.7-34.0 [facility] Comment on above: Performed By: #### C BC ####[facility] [address] [place], [place] [address]Dr. Airam Tripathi MCHC (RBC) [Mass/Vol] 31.8 g/dL Normal 29.9-35.2 [facility] Comment on above: Performed By: #### C BC ####[facility] [address] [place], [place] [address]DrKianna Tripathi MCV (RBC) [Entitic vol] 91.4 fL Normal 81.0-99.0 [facility] Comment on above: Performed By: #### C BC ####[facility] [address] [place], [place] [address]DrKianna Tripathi MONO # 0.5 103/ul Normal 0.3-0.8 [facility] Comment on above: Performed By: #### C BC ####[facility] [address] [place], [place] [address]DrKianna Tripathi Monocytes/100 WBC (Bld) 7.5 % Normal 1.7-12.0 [facility] Comment on above: Performed By: #### C BC ####[facility] [address] [place], [place] [address]DrKianna Tripathi NEUT # 3.9 103/ul Normal 1.4-6.5 [facility] Comment on above: Performed By: #### C BC ####[facility] [address] [place] [address]DrKianna Tripathi Neutrophils/100 WBC (Bld) 61.2 % Normal 43.0-75.0 [facility] Comment on above: Performed By: #### C BC ####[facility] [address] [place] [address]DrKianna Tripathi Platelet mean volume (Bld) [Entitic vol] 9.4 fL Critically low 9.5-13.5 [facility] Comment on above: Performed By: #### C BC ####[facility] [address] [place], [place] [address]DrKianna Tripathi PLT 247 103/ul Normal 150-450 [facility] Comment on above: Performed By: #### C BC ####[facility] [address] [place], [place] [address]DrKianna Tripathi RBC 3.03 106/ul Critically low 4.20-5.40 [facility] Comment on above: Performed By: #### C BC ####[facility] [address] [place], [place] [address]DrKianna Tripathi WBC 6.4 103/ul Normal 4.0-11.0 [facility] Comment on above: Performed By: #### C BC ####[facility] [address] [place], [place] [address]DrKianna Tripathi PROF 14(COMP METB)on 023 Albumin [Mass/Vol] 2.5 g/dL Critically low 3.4-5.0 [facility] Comment on above: Performed By: #### C MP, BNP ####[facility] [address] [place], [place] [address]DrKianna Tripathi Albumin/Globulin [Mass ratio] 0.9 {ratio} Normal [facility] Comment on above: Performed By: #### C MP, BNP ####[facility] [address] [place], [place] [address]DrKianna Tripathi ALP [Catalytic activity/Vol] 108 U/L Normal 46-116 [facility] Comment on above: Performed By: #### C MP, BNP ####[facility] [address] [place], [place] [address]Dr. Airam Tripathi ALT [Catalytic activity/Vol] 20 U/L Normal 14-59 [facility] Comment on above: Performed By: #### C MP, BNP ####[facility] [address] [place], [place] [address]Dr. Airam Tripathi Anion gap [Moles/Vol] 10.4 mmol/L Normal [facility] Comment on above: Performed By: #### C MP, BNP ####[facility] [address] [place], [place] [address]Dr. Airam Tripathi AST [Catalytic activity/Vol] 20 U/L Normal 15-37 [facility] Comment on above: Performed By: #### C MP, BNP ####[facility] [address] [place], [place] [address]Dr. Airam Tripathi Bilirubin [Mass/Vol] 0.2 mg/dL Normal 0.2-1.0 [facility] Comment on above: Performed By: #### C MP, BNP ####[facility] [address] [place], [place] [address]Dr. Airam Tripathi Calcium [Mass/Vol] 8.0 mg/dL Critically low 8.5-10.1 [facility] Comment on above: Performed By: #### C MP, BNP ####[facility] [address] [place], [place] [address]Dr. Airam Tripathi Chloride [Moles/Vol] 100 mmol/L Normal 98-107 [facility] Comment on above: Performed By: #### C MP, BNP ####[facility] [address] [place], [place] [address]Dr. Airam Tripathi CO2 [Moles/Vol] 28.6 mmol/L Normal 21.0-32.0 [facility] Comment on above: Performed By: #### C MP, BNP ####[facility] [address] [place], [place] [address]Dr. Airam Tripathi Creatinine [Mass/Vol] 1.66 mg/dL Critically high 0.55-1.02 [facility] Comment on above: Performed By: #### C MP, BNP ####[facility] [address] [place] [address]Dr. Airam Tripathi EGFR-AF PANAMANIAN 38 mL/min/1.73m2 Critically low >=60 [facility] Comment on above: Performed By: #### C MP, BNP ####[facility] [address] [place] [address]Dr. Airam Tripathi EGFR-NON AF PANAMANIAN 32 mL/min/1.73m2 Critically low >=60 [facility] Comment on above: Performed By: #### C MP, BNP ####[facility] [address] [place] [address]Dr. Airam Tripathi Globulin (S) [Mass/Vol] 2.8 g/dL Normal [facility] Comment on above: Performed By: #### C MP, BNP ####[facility] [address] [place] [address]Dr. Airam Tripathi Glucose [Mass/Vol] 102 mg/dL Normal 74-106 [facility] Comment on above: Performed By: #### C MP, BNP ####[facility] [address] [place] [address]Dr. Airam Tripathi Potassium [Moles/Vol] 5.0 mmol/L Normal 3.5-5.1 [facility] Comment on above: Performed By: #### C MP, BNP ####[facility] [address] [place] [address]Dr. Airam Tripathi Protein [Mass/Vol] 5.3 g/dL Critically low 6.4-8.2 [facility] Comment on above: Performed By: #### C MP, BNP ####[facility] [address] [place] [address]Dr. Airam Tripathi Sodium [Moles/Vol] 134 mmol/L Critically low 136-145 [facility] Comment on above: Performed By: #### C MP, BNP ####[facility] [address] [place], [place] [address]Dr. Airam Tripathi Urea nitrogen [Mass/Vol] 45.0 mg/dL Critically high 7.0-18.0 [facility] Comment on above: Performed By: #### C MP, BNP ####[facility] [address] [place], [place] [address]Dr. Airam Tripathi Urea nitrogen/Creatinine [Mass ratio] 27.1 mg/mg Normal [facility] Comment on above: Performed By: #### C MP, BNP ####[facility] [address]el[address] [place], [place] [address]Dr. Airam Tripathi BNPon 10-25-2022 Natriuretic peptide B (Bld) [Mass/Vol] 4569.0 pg/mL Critically high <=900.0 [facility] Comment on above: Performed By: #### C MP, BNP ####[facility] [address] [place], [place] [address]Dr. Airam Tripathi CBC AUTO DIFFon 10-25-2022 BASO # 0.0 103/ul Normal 0.0-0.1 [facility] Comment on above: Performed By: #### C BC ####[facility] [address] [place], [place] [address]Dr. Airam Deuce Basophils/100 WBC (Bld) 0.5 % Normal 0.2-2.0 [facility] Comment on above: Performed By: #### C BC ####[facility] Cznltkrhkx[address] [place], [place] [address]Dr. Airam Tripathi EO # 0.3 103/ul Normal 0.0-0.7 [facility] Comment on above: Performed By: #### C BC ####[facility] Uqhsbwfrhf3[address] [place], [place] [address]Dr. Airam Deuce Eosinophils/100 WBC (Bld) 5.6 % Normal 0.9-7.0 [facility] Comment on above: Performed By: #### C BC ####[facility] Axjaygoppm8949[address] [place], [place] [address]Dr. Airam Tripathi Erythrocyte distribution width (RBC) [Ratio] 15.7 % Critically high 11.0-15.0 [facility] Comment on above: Performed By: #### C BC ####[facility] [address] [place] [address]DrKianna Tripathi Hematocrit (Bld) [Volume fraction] 30.1 % Critically low 36.0-48.0 [facility] Comment on above: Performed By: #### C BC ####[facility] Entedzncir8078[address] [place], [place] [address]DrKianna Tripathi Hemoglobin (Bld) [Mass/Vol] 9.2 g/dL Critically low 12.0-16.0 [facility] Comment on above: Performed By: #### C BC ####[facility] Pbqlcicyvc4077[address] [place], [place] [address]DrKianna Tripathi IG # 0.03 10e3/ul Normal 0.00-0.03 [facility] Comment on above: Performed By: #### C BC ####[facility] Ohsiflxmeh5118[address] [place], [place] [address]DrKianna Tripathi IG % 0.5 % Normal 0.0-0.5 [facility] Comment on above: Performed By: #### C BC ####[facility] Uioatymwzy64[address] [place], [place] [address]DrKianna Tripathi LYMPH # 1.7 103/ul Normal 1.2-3.8 [facility] Comment on above: Performed By: #### C BC ####[facility] Hccycntjuv1829[address] [place], [place] [address]DrKianna Tripathi Lymphocytes/100 WBC (Bld) 28.9 % Normal 20.5-60.0 [facility] Comment on above: Performed By: #### C BC ####[facility] Dsoqmjqonz858[address] [place], [place] [address]DrKianna Tripathi MANUAL DIFF REQ NO Normal [facility] Comment on above: Performed By: #### C BC ####[facility] Tkrqgyewbz5670[address] [place], [place] [address]DrKianna Tripathi MCH (RBC) [Entitic mass] 28.4 pg Normal 26.7-34.0 [facility] Comment on above: Performed By: #### C BC ####[facility] M[address]jgmzvrc69[address] [place] [address]DrKianna Tripathi MCHC (RBC) [Mass/Vol] 30.6 g/dL Normal 29.9-35.2 [facility] Comment on above: Performed By: #### C BC ####[facility] [address]fdxotfyuk[address] [place] [address]DrKianna Tripathi MCV (RBC) [Entitic vol] 92.9 fL Normal 81.0-99.0 [facility] Comment on above: Performed By: #### C BC ####[facility] Xfdcknvygm3998[address] [place], [place] [address]DrKianna Tripathi MONO # 0.5 103/ul Normal 0.3-0.8 [facility] Comment on above: Performed By: #### C BC ####[facility] Hxaerprihq7236[address] [place], [place] [address]DrKianna Tripathi Monocytes/100 WBC (Bld) 8.5 % Normal 1.7-12.0 [facility] Comment on above: Performed By: #### C BC ####[facility] Shwgqjgghb448[address] [place], [place] [address]DrKianna Tripathi NEUT # 3.2 103/ul Normal 1.4-6.5 [facility] Comment on above: Performed By: #### C BC ####[facility] Rlqoprwrwh232[address] [place], [place] [address]DrKianna Tripathi Neutrophils/100 WBC (Bld) 56.0 % Normal 43.0-75.0 [facility] Comment on above: Performed By: #### C BC ####[facility] Seenertzsb1358[address] [place], [place] [address]DrKianna Tripathi Platelet mean volume (Bld) [Entitic vol] 9.4 fL Critically low 9.5-13.5 [facility] Comment on above: Performed By: #### C BC ####[facility] Xynpytwpqy8976[address] [place], [place] [address]DrKianna Tripathi PLT 272 103/ul Normal 150-450 [facility] Comment on above: Performed By: #### C BC ####[facility] Z[address]hrzzbrz8[address] [place] [address]Dr. Airam Tripathi RBC 3.24 106/ul Critically low 4.20-5.40 [facility] Comment on above: Performed By: #### C BC ####[facility] Yuszzwhcen3527 [place] [address]Dr. Airam Tripathi WBC 5.8 103/ul Normal 4.0-11.0 [facility] Comment on above: Performed By: #### C BC ####[facility] Qvyjinxpks6498 [place] [address]Dr. Airam Tripathi OSMOLALITYon 10-25-2022 Osmolality [Osmolality] 282 mosm/kg Normal 275-295 [facility] Comment on above: Performed By: #### O SMO ####[facility] Jnrygogaae6607[address] [place], [place] [address]DrKianna Tripathi PROF 14(COMP METB)on 023 Albumin [Mass/Vol] 2.7 g/dL Critically low 3.4-5.0 [facility] Comment on above: Performed By: #### C MP, BNP ####[facility] Gkbotfpqhv62[address] [place] [address]Dr. Airam Tripathi Albumin/Globulin [Mass ratio] 0.9 {ratio} Normal [facility] Comment on above: Performed By: #### C MP, BNP ####[facility] Gmhihpczuc0140[address] [place], [place] [address]Dr. Airam Tripathi ALP [Catalytic activity/Vol] 122 U/L Critically high 46-116 [facility] Comment on above: Performed By: #### C MP, BNP ####[facility] Npbtjrjkck4217[address] [place], [place] [address]Dr. Airam Tripathi ALT [Catalytic activity/Vol] 23 U/L Normal 14-59 [facility] Comment on above: Performed By: #### C MP, BNP ####[facility] Nxjwuwwwey718[address] [place], [place] [address]Dr. Airam Tripathi Anion gap [Moles/Vol] 10.5 mmol/L Normal [facility] Comment on above: Performed By: #### C MP, BNP ####[facility] Zzoffgpvmk7116 [place] [address]Dr. Airam Tripathi AST [Catalytic activity/Vol] 22 U/L Normal 15-37 [facility] Comment on above: Performed By: #### C MP, BNP ####[facility] Lpsqqcdajd494[address] [place], [place] [address]Dr. Airam Tripathi Bilirubin [Mass/Vol] 0.2 mg/dL Normal 0.2-1.0 [facility] Comment on above: Performed By: #### C MP, BNP ####[facility] Vzuezxlzmj34[address] [place], [place] [address]Dr. Airam Tripathi Calcium [Mass/Vol] 8.3 mg/dL Critically low 8.5-10.1 [facility] Comment on above: Performed By: #### C MP, BNP ####[facility] Bereesjabc6913[address] [place], [place] [address]Dr. Airam Tripathi Chloride [Moles/Vol] 102 mmol/L Normal 98-107 [facility] Comment on above: Performed By: #### C MP, BNP ####[facility] Zoavtoqjtz8495[address] [place], [place] [address]Dr. Airam Tripathi CO2 [Moles/Vol] 29.7 mmol/L Normal 21.0-32.0 [facility] Comment on above: Performed By: #### C MP, BNP ####[facility] Ylkonabuzk6632[address] [place], [place] [address]Dr. Airam Tripathi Creatinine [Mass/Vol] 1.31 mg/dL Critically high 0.55-1.02 [facility] Comment on above: Performed By: #### C MP, BNP ####[facility] Qonkmklxeg5432[address] [place], [place] [address]Dr. Airam Tripathi EGFR-AF PANAMANIAN 50 mL/min/1.73m2 Critically low >=60 [facility] Comment on above: Performed By: #### C MP, BNP ####[facility] [address]vr[address]mxeu[address] [place] [id number]. Airam Tripathi EGFR-NON AF PANAMANIAN 41 mL/min/1.73m2 Critically low >=60 [facility] Comment on above: Performed By: #### C MP, BNP ####[facility] Mgmyjkopjz3785 [place] [id number]. Airam Tripathi Globulin (S) [Mass/Vol] 2.9 g/dL Normal [facility] Comment on above: Performed By: #### C MP, BNP ####[facility] Ixhbdhzzpw6794[address] [place], [place] [address]Dr. Airam Tripathi Glucose [Mass/Vol] 94 mg/dL Normal 74-106 [facility] Comment on above: Performed By: #### C MP, BNP ####[facility] Jfvaeoigfo6958[address] [place], [place] [address]Dr. Airam Tripathi Potassium [Moles/Vol] 4.2 mmol/L Normal 3.5-5.1 [facility] Comment on above: Performed By: #### C MP, BNP ####[facility] Alrnundyjr6329[address] [place], [place] [address]Dr. Airam Tripathi Protein [Mass/Vol] 5.6 g/dL Critically low 6.4-8.2 [facility] Comment on above: Performed By: #### C MP, BNP ####[facility] Gubzsgrxja4907[address] [place], [place] [address]Dr. Airam Tripathi Sodium [Moles/Vol] 138 mmol/L Normal 136-145 [facility] Comment on above: Performed By: #### C MP, BNP ####[facility] Gl[address]awacsvj26[address] [place] [address]Dr. Airam Tripathi Urea nitrogen [Mass/Vol] 33.0 mg/dL Critically high 7.0-18.0 [facility] Comment on above: Performed By: #### C MP, BNP ####[facility] Uorvqhpyud5412[address] [place], [place] [address]Dr. Airam Tripathi Urea nitrogen/Creatinine [Mass ratio] 25.2 mg/mg Normal [facility] Comment on above: Performed By: #### C MP, BNP ####[facility] Avoiyhzeab[address] [place] [address]Dr. Airam Tripathi BNPon 10-24-2022 Natriuretic peptide B (Bld) [Mass/Vol] 3805.0 pg/mL Critically high <=900.0 [facility] Comment on above: Performed By: #### H STROPN, BNP, CMP ####[facility] Hdlpfhnpyi9535[address] [place], [place] [address]Dr. Airam Tripathi CBC AUTO DIFFon 10-24-2022 BASO # 0.0 103/ul Normal 0.0-0.1 [facility] Comment on above: Performed By: #### C BC ####[facility] Bbtbyhierb498[address] [place], [place] [address]Dr. Airam Tripathi Basophils/100 WBC (Bld) 0.3 % Normal 0.2-2.0 [facility] Comment on above: Performed By: #### C BC ####[facility] Eofzmecvmg0525[address] [place], [place] [address]Dr. Airam Tripathi EO # 0.3 103/ul Normal 0.0-0.7 [facility] Comment on above: Performed By: #### C BC ####[facility] Rxovuhnope6179[address] [place], [place] [address]Dr. Airam Tripathi Eosinophils/100 WBC (Bld) 4.2 % Normal 0.9-7.0 [facility] Comment on above: Performed By: #### C BC ####[facility] Yerehmvpjf0188[address] [place], [place] [address]Dr. Airam Tripathi Erythrocyte distribution width (RBC) [Ratio] 15.6 % Critically high 11.0-15.0 [facility] Comment on above: Performed By: #### C BC ####[facility] Bkmwkfuruw423[address] [place], [place] [address]DrKianna Tripathi Hematocrit (Bld) [Volume fraction] 30.0 % Critically low 36.0-48.0 [facility] Comment on above: Performed By: #### C BC ####[facility] Ljewwxzvdg3260[address] [place], [place] [address]Dr. Airam Tripathi Hemoglobin (Bld) [Mass/Vol] 9.3 g/dL Critically low 12.0-16.0 [facility] Comment on above: Performed By: #### C BC ####[facility] Im[address]wphwpd8[address] [place] [address]Dr. Airam Tripathi IG # 0.03 10e3/ul Normal 0.00-0.03 [facility] Comment on above: Performed By: #### C BC ####[facility] Ehcvbgdsjo2886[address] [place], [place] [address]Dr. Airam Tripathi IG % 0.5 % Normal 0.0-0.5 [facility] Comment on above: Performed By: #### C BC ####[facility] Jxpvlyiiio3088[address] [place], [place] [address]DrKianna Tripathi LYMPH # 1.4 103/ul Normal 1.2-3.8 [facility] Comment on above: Performed By: #### C BC ####[facility] Ynmtxmzfom6325[address] [place], [place] [address]Dr. Airam Tripathi Lymphocytes/100 WBC (Bld) 22.5 % Normal 20.5-60.0 [facility] Comment on above: Performed By: #### C BC ####[facility] Fbevkyudxl4824[address] [place], [place] [address]DrKianna Tripathi MANUAL DIFF REQ NO Normal [facility] Comment on above: Performed By: #### C BC ####[facility] Gbvupfwjjp9794[address] [place], [place] [address]DrKianna Tripathi MCH (RBC) [Entitic mass] 28.7 pg Normal 26.7-34.0 [facility] Comment on above: Performed By: #### C BC ####[facility] Btmjgvqczj5213[address] [place], [place] [address]Dr. Airam Tripathi MCHC (RBC) [Mass/Vol] 31.0 g/dL Normal 29.9-35.2 [facility] Comment on above: Performed By: #### C BC ####[facility] Cngvddpehn5988[address] [place], [place] [address]DrKianna Tripathi MCV (RBC) [Entitic vol] 92.6 fL Normal 81.0-99.0 [facility] Comment on above: Performed By: #### C BC ####[facility] Aacygxxfzd2028[address] [place], [place] [address]DrKianna Airam Tripathi MONO # 0.4 103/ul Normal 0.3-0.8 [facility] Comment on above: Performed By: #### C BC ####[facility] Razekkkyuk216[address] [place], [place] [address]DrKianna Airam Tripathi Monocytes/100 WBC (Bld) 7.3 % Normal 1.7-12.0 [facility] Comment on above: Performed By: #### C BC ####[facility] Zqhuuraszk2040[address] [place], [place] [address]DrKianna Airam Tripathi NEUT # 3.9 103/ul Normal 1.4-6.5 [facility] Comment on above: Performed By: #### C BC ####[facility] Mrsuprbwhs5129[address] [place], [place] [address]DrKianna iAram Tripathi Neutrophils/100 WBC (Bld) 65.2 % Normal 43.0-75.0 [facility] Comment on above: Performed By: #### C BC ####[facility] Dhqggdfary6437[address] [place], [place] [address]DrKianna Airam Tripathi Platelet mean volume (Bld) [Entitic vol] 9.0 fL Critically low 9.5-13.5 [facility] Comment on above: Performed By: #### C BC ####[facility] Uypcrehxst3130[address] [place], [place] [address]DrKianna Airam Tripathi PLT 247 103/ul Normal 150-450 [facility] Comment on above: Performed By: #### C BC ####[facility] [address]qpcw[address] [place], [place] [address]DrKianna Airam Tripathi RBC 3.24 106/ul Critically low 4.20-5.40 [facility] Comment on above: Performed By: #### C BC ####[facility] Wcimslandv6178[address] [place], [place] [address]DrKianna Tripathi WBC 6.0 103/ul Normal 4.0-11.0 [facility] Comment on above: Performed By: #### C BC ####[facility] F[address]eviddmv[address] [place] [address]Dr. Airam Tripathi CULTURE URINEon 10-24-2022 CULTURE URINE Culture Observations : LIGHT GROWTH OF MIXED GENITAL GREGORY. NO POTENTIAL PATHOGENS SEEN. Normal [facility] Comment on above: Performed By: #### U RCX ####[facility] Szquqfeyqh[address] [place] [address]Dr. Airam Tripathi POINT OF CARE GLUCOSEon Glucose [Mass/Vol] 118 mg/dL Critically high 74-106 [facility] Comment on above: Performed By: #### P OCGLUC ####[facility] Vafpxagceg[address]11[address] [place], [place] [address]Dr. Airam Tripathi PROF 14(COMP METB)on 023 Albumin [Mass/Vol] 3.1 g/dL Critically low 3.4-5.0 [facility] Comment on above: Performed By: #### H STROPN, BNP, CMP ####[facility] [address]auwhq30[address] [place] [address]Dr. Airam Tripathi Albumin/Globulin [Mass ratio] 1.0 {ratio} Normal [facility] Comment on above: Performed By: #### H STROPN, BNP, CMP ####[facility] [address]zhkqsxwn7[address] [place] [address]Dr. Airam Tripathi ALP [Catalytic activity/Vol] 131 U/L Critically high 46-116 [facility] Comment on above: Performed By: #### H STROPN, BNP, CMP ####[facility] [address]yssepvyr20[address] [place] [address]Dr. Airam Tripathi ALT [Catalytic activity/Vol] 26 U/L Normal 14-59 [facility] Comment on above: Performed By: #### H STROPN, BNP, CMP ####[facility] Deesuuvqvw300[address] [place] [address]Dr. Airam Tripathi Anion gap [Moles/Vol] 11.2 mmol/L Normal [facility] Comment on above: Performed By: #### H STROPN, BNP, CMP ####[facility] Gonhdbegdf[address] [place] [address]Dr. Airam Tripathi AST [Catalytic activity/Vol] 31 U/L Normal 15-37 [facility] Comment on above: Performed By: #### H STROPN, BNP, CMP ####[facility] Iazegwrikr1073 [place] [address]Dr. Airam Tripathi Bilirubin [Mass/Vol] 0.2 mg/dL Normal 0.2-1.0 [facility] Comment on above: Performed By: #### H STROPN, BNP, CMP ####[facility] Vajpsqdeyc3343 [place] [address]Dr. Airam Tripathi Calcium [Mass/Vol] 8.6 mg/dL Normal 8.5-10.1 [facility] Comment on above: Performed By: #### H STROPN, BNP, CMP ####[facility] Arlbbojwth41[address] [place], [place] [address]Dr. Airam Tripathi Chloride [Moles/Vol] 102 mmol/L Normal 98-107 [facility] Comment on above: Performed By: #### H STROPN, BNP, CMP ####[facility] Zlefyblnoy77[address] [place], [place] [address]Dr. Airam Tripathi CO2 [Moles/Vol] 27.4 mmol/L Normal 21.0-32.0 [facility] Comment on above: Performed By: #### H STROPN, BNP, CMP ####[facility] Axnwuiwvma1310[address] [place], [place] [address]Dr. Airam Tripathi Creatinine [Mass/Vol] 1.23 mg/dL Critically high 0.55-1.02 [facility] Comment on above: Performed By: #### H STROPN, BNP, CMP ####[facility] Hygfpxqzoa9[address] [place] [address]Dr. Airam Tripathi EGFR-AF PANAMANIAN 54 mL/min/1.73m2 Critically low >=60 [facility] Comment on above: Performed By: #### H STROPN, BNP, CMP ####[facility] [address]fr[address] [place] [address]Dr. Airam Tripathi EGFR-NON AF PANAMANIAN 45 mL/min/1.73m2 Critically low >=60 [facility] Comment on above: Performed By: #### H STROPN, BNP, CMP ####[facility] [address]ksvjqkf2[address] [place] [address]Dr. Airam Tripathi Globulin (S) [Mass/Vol] 3.1 g/dL Normal [facility] Comment on above: Performed By: #### H STROPN, BNP, CMP ####[facility] Ybjmbwedqp7645 [place] [address]Dr. Airam Tripathi Glucose [Mass/Vol] 90 mg/dL Normal 74-106 [facility] Comment on above: Performed By: #### H STROPN, BNP, CMP ####[facility] Oxejawybhn[address] [place] [address]Dr. Airam Tripathi Potassium [Moles/Vol] 5.6 mmol/L Critically high 3.5-5.1 [facility] Comment on above: Performed By: #### H STROPN, BNP, CMP ####[facility] Mbfczoqfuk0783 [place] [address]Dr. Airam Tripathi Protein [Mass/Vol] 6.2 g/dL Critically low 6.4-8.2 [facility] Comment on above: Performed By: #### H STROPN, BNP, CMP ####[facility] Wmnrkturkw5[address] [place] [address]Dr. Airam Tripathi Sodium [Moles/Vol] 135 mmol/L Critically low 136-145 [facility] Comment on above: Performed By: #### H STROPN, BNP, CMP ####[facility] Nrnimylkqx5[address] [place] [address]Dr. Airam Tripathi Urea nitrogen [Mass/Vol] 38.0 mg/dL Critically high 7.0-18.0 [facility] Comment on above: Performed By: #### H STROPN, BNP, CMP ####[facility] Vxhnumjeto61[address] [place] [address]Dr. Airam Tripathi Urea nitrogen/Creatinine [Mass ratio] 30.9 mg/mg Normal [facility] Comment on above: Performed By: #### H STROPN, BNP, CMP ####[facility] Ibcfzgekkd4899 [place] [address]Dr. Airam Tripathi TROPONIN, HIGH SENSITIVITYon 10-24-2022 HSTROP 8.0 pg/mL Normal 4.0-51.3 [facility] Comment on above: Result Comment: CUT- OFF POINTS HAVE BEEN ESTABLISHED BASED ON THE FOURTH UNIVERSAL DEFINITIONS OF MYOCARDIALINFARCTION. THE UPPER REFERENCE LIMIT (URL) OF TROPONIN, DEFINED THE 99TH PERCENTILE OFcTnI DISTRIBUTION IN A REFERENCE POPULATION, HAS BEEN CONFIRMED THE DECISION THRESHOLDFOR [place] DIAGNOSIS. Performed By: #### H STROPN, BNP, CMP ####[facility] Nmbknanteh[address]774 [place] [address]Dr. Airam Tripathi UA RANDOM W/MICROSCOPICon BACTERIA NONE SEEN Normal NONE SEEN [facility] Comment on above: Performed By: #### U AMIC ####[facility] [address]fdiixwwo[address] [place], [place] [address]Dr. Airam Tripathi Bilirubin Ql (U) Negative Normal NEGATIVE [facility] Comment on above: Performed By: #### U AMIC ####[facility] Updyxnsbcj48[address] [place], [place] [address]Dr. Airam Tripathi CAST NONE SEEN Normal NONE SEEN [facility] Comment on above: Performed By: #### U AMIC ####[facility] Qybcajyhge70[address] [place] [address]Dr. Airam Tripathi Clarity (U) CLEAR Normal CLEAR [facility] Comment on above: Performed By: #### U AMIC ####[facility] Zqoynrnbej6148 [place] [address]Dr. Airam Tripathi Color (U) LT. YELLOW Normal YELLOW [facility] Comment on above: Performed By: #### U AMIC ####[facility] Zvwtcknigr9686 [place] [address]Dr. Airam Tripathi Crystals LM Nom (Urine sed) NONE SEEN Normal NONE SEEN [facility] Comment on above: Performed By: #### U AMIC ####[facility] Fdxdepocar3534 [place] [address]Dr. Airam Tripathi Epithelial cells LM Ql (Urine sed) RARE Normal NONE SEEN /RARE [facility] Comment on above: Performed By: #### U AMIC ####[facility] Edkyxkwvis6459 [place] [address]Dr. Airam Tripathi Glucose Ql (U) Negative Normal NEGATIVE [facility] Comment on above: Performed By: #### U AMIC ####[facility] Zjsckjptnd39[address] [place], [place] [address]Dr. Airam Tripathi Hemoglobin Ql (U) Negative Normal NEGATIVE [facility] Comment on above: Performed By: #### U AMIC ####[facility] Uopzdkxuks56[address] [place], [place] [address]Dr. Airam Tripathi Ketones Ql (U) Negative Normal NEGATIVE [facility] Comment on above: Performed By: #### U AMIC ####[facility] Mgbzawkgwm2918[address] [place], [place] [address]Dr. Airam Tripathi LEUKOCYTES Negative Normal NEGATIVE [facility] Comment on above: Performed By: #### U AMIC ####[facility] Dmttdqinte9[address] [place], [place] [address]Dr. Airam Tripathi MUCOUS NONE SEEN Normal NONE SEEN [facility] Comment on above: Performed By: #### U AMIC ####[facility] Hxrcdktqwd4[address] [place], [place] [address]Dr. Airam Tripathi Nitrite Ql (U) Negative Normal NEGATIVE [facility] Comment on above: Performed By: #### U AMIC ####[facility] Lzqnifxwxp23[address] [place], [place] [address]Dr. Airam Tripathi pH (U) 7.0 [pH] Normal 5-9 [facility] Comment on above: Performed By: #### U AMIC ####[facility] Amjxxynrov226[address] [place], [place] [address]Dr. Airam Tripathi RBC 0-2 Normal 0-2 [facility] Comment on above: Performed By: #### U AMIC ####[facility] Bzzahosbyd25[address] [place], [place] [address]Dr. Airam Tripathi SPEC GRAVITY 1.015 Normal 1.005-<=1. 025 [facility] Comment on above: Performed By: #### U AMIC ####[facility] [address]qyekue[address] [place] [address]Dr. Airam Tripathi UA PROTEIN Negative Normal NEGATIVE/ TRACE [facility] Comment on above: Performed By: #### U AMIC ####[facility] Zvdermoeio280[address] [place] [address]Dr. Airam Tripathi Urobilinogen Qn (U) 0.2 {Ligia'U}/dL Normal 0.2 - 1. 0 [facility] Comment on above: Performed By: #### U AMIC ####[facility] Rajopmwkmc2778[address] [place], [place] [address]Dr. Airam Tripathi WBC NONE SEEN Normal NONE SEEN [facility] Comment on above: Performed By: #### U AMIC ####[facility] Vyalkddlmj[address] [place] [address]Dr. Airam Tripathi XR CHEST 1 Von 10-24-2022 XR CHEST 1 V Normal [facility] CBC AUTO DIFFon 10-19-2022 BASO # 0.0 103/ul Normal 0.0-0.1 [facility] Comment on above: Performed By: #### C BC ####[facility] Mczjqwdsab7136[address] [place], [place] [address]Dr. Airam Deuce Basophils/100 WBC (Bld) 0.5 % Normal 0.2-2.0 [facility] Comment on above: Performed By: #### C BC ####[facility] Xtneeqogje6478[address] [place], [place] [address]Dr. Airam Tripathi EO # 0.3 103/ul Normal 0.0-0.7 [facility] Comment on above: Performed By: #### C BC ####[facility] Tmfspoiaag86[address] [place], [place] [address]Dr. Airam Deuce Eosinophils/100 WBC (Bld) 3.3 % Normal 0.9-7.0 [facility] Comment on above: Performed By: #### C BC ####[facility] T[address]rrbpqa[address] [place] [address]Dr. Airam Tripathi Erythrocyte distribution width (RBC) [Ratio] 15.0 % Normal 11.0-15.0 [facility] Comment on above: Performed By: #### C BC ####[facility] Urcqpnsihu[address] [place] [address]Dr. Airam Tripathi Hematocrit (Bld) [Volume fraction] 32.9 % Critically low 36.0-48.0 [facility] Comment on above: Performed By: #### C BC ####[facility] Ratgqakuav3513[address] [place], [place] [address]Dr. Selenaneil Tripathi Hemoglobin (Bld) [Mass/Vol] 10.1 g/dL Critically low 12.0-16.0 [facility] Comment on above: Performed By: #### C BC ####[facility] Gnpieixxjw6660[address] [place], [place] [address]Dr. Airam Tripathi IG # 0.04 10e3/ul Critically high 0.00-0.03 [facility] Comment on above: Performed By: #### C BC ####[facility] Repdjvkoww091833 [address] [place], [place] [address]Dr. Selenaneil Tripathi IG % 0.5 % Normal 0.0-0.5 [facility] Comment on above: Performed By: #### C BC ####[facility] Ludyfzbdnd527[address] [place], [place] [address]Dr. Airam Tripathi LYMPH # 1.5 103/ul Normal 1.2-3.8 [facility] Comment on above: Performed By: #### C BC ####[facility] Mmnkogkcgm0099[address] [place], [place] [address]Dr. Airam Tripathi Lymphocytes/100 WBC (Bld) 18.1 % Critically low 20.5-60.0 [facility] Comment on above: Performed By: #### C BC ####[facility] Djflhkcudq0699[address] [place], [place] [address]Dr. Airam Tripathi MANUAL DIFF REQ NO Normal [facility] Comment on above: Performed By: #### C BC ####[facility] Oyxvquwkyk[address] [place] [address]Dr. Airam Tripathi MCH (RBC) [Entitic mass] 28.3 pg Normal 26.7-34.0 [facility] Comment on above: Performed By: #### C BC ####[facility] Pkiwajympa2484 [place] [address]Dr. Airam Tripathi MCHC (RBC) [Mass/Vol] 30.7 g/dL Normal 29.9-35.2 [facility] Comment on above: Performed By: #### C BC ####[facility] Hsrxancvat2315[address] [place], [place] [address]Dr. Airam Tripathi MCV (RBC) [Entitic vol] 92.2 fL Normal 81.0-99.0 [facility] Comment on above: Performed By: #### C BC ####[facility] Kashlwiiqg5810[address] [place], [place] [address]Dr. Airam Tripathi MONO # 0.7 103/ul Normal 0.3-0.8 [facility] Comment on above: Performed By: #### C BC ####[facility] Hxucshjmyr1036[address] [place], [place] [address]Dr. Airam Tripathi Monocytes/100 WBC (Bld) 7.7 % Normal 1.7-12.0 [facility] Comment on above: Performed By: #### C BC ####[facility] Bvrfxulasf6277[address] [place], [place] [address]Dr. Airam Tripathi NEUT # 5.9 103/ul Normal 1.4-6.5 [facility] Comment on above: Performed By: #### C BC ####[facility] Xglfmmpezv3344[address] [place], [place] [address]Dr. Airam Tripathi Neutrophils/100 WBC (Bld) 69.9 % Normal 43.0-75.0 [facility] Comment on above: Performed By: #### C BC ####[facility] Ybwmncnvdw8226[address] [place], [place] [address]Dr. Airam Tripathi Platelet mean volume (Bld) [Entitic vol] 9.3 fL Critically low 9.5-13.5 [facility] Comment on above: Performed By: #### C BC ####[facility] [address]vtaapcxyf[address] [place] [id number]. Airam Tripathi PLT 293 103/ul Normal 150-450 [facility] Comment on above: Performed By: #### C BC ####[facility] Rcaltnxewg5320 [place] [id number]. Airam Tripathi RBC 3.57 106/ul Critically low 4.20-5.40 [facility] Comment on above: Performed By: #### C BC ####[facility] Fmvhxnswag2551 [place] [id number]. Airam Tripathi WBC 8.4 103/ul Normal 4.0-11.0 [facility] Comment on above: Performed By: #### C BC ####[facility] Gfboadgxnl7865 [place] [address]Dr. Airam Tripathi PROF 14(COMP METB)on 023 Albumin [Mass/Vol] 3.1 g/dL Critically low 3.4-5.0 [facility] Comment on above: Performed By: #### C MP ####[facility] Wwsdtugjox64[address] [place] [address]Dr. Selenaneil Deuce Albumin/Globulin [Mass ratio] 0.9 {ratio} Normal [facility] Comment on above: Performed By: #### C MP ####[facility] Cxsgqjljsm5071 [place] [address]Dr. Airam Tripathi ALP [Catalytic activity/Vol] 117 U/L Critically high 46-116 [facility] Comment on above: Performed By: #### C MP ####[facility] Umniveentt66[address] [place] [address]Dr. Airam Triptahi ALT [Catalytic activity/Vol] 24 U/L Normal 14-59 [facility] Comment on above: Performed By: #### C MP ####[facility] Iyusjmragu6367 [place] [address]Dr. Airam Tripathi Anion gap [Moles/Vol] 11.1 mmol/L Normal [facility] Comment on above: Performed By: #### C MP ####[facility] Poefxsspsm2521 [place] [id number]. Airam Tripathi AST [Catalytic activity/Vol] 22 U/L Normal 15-37 [facility] Comment on above: Performed By: #### C MP ####[facility] Wtfimiqfjy1536 [place] [phone]. Airam Tripathi Bilirubin [Mass/Vol] 0.2 mg/dL Normal 0.2-1.0 [facility] Comment on above: Performed By: #### C MP ####[facility] Bxcmqfcnyv6527 [place] [phone]. Airam Tripathi Calcium [Mass/Vol] 8.4 mg/dL Critically low 8.5-10.1 [facility] Comment on above: Performed By: #### C MP ####[facility] Rcvkioxuny4142 [place] [phone]. Airam Tripathi Chloride [Moles/Vol] 103 mmol/L Normal 98-107 [facility] Comment on above: Performed By: #### C MP ####[facility] Xphrfkdxuz0821 [place] [phone]. Airam Tripathi CO2 [Moles/Vol] 25.0 mmol/L Normal 21.0-32.0 [facility] Comment on above: Performed By: #### C MP ####[facility] Cffszxwiig7164 [place] [phone]. Airam Tripathi Creatinine [Mass/Vol] 1.27 mg/dL Critically high 0.55-1.02 [facility] Comment on above: Performed By: #### C MP ####[facility] Xbbqiptjkn15[address] [place] [phone]. Airam Tripathi EGFR-AF PANAMANIAN 52 mL/min/1.73m2 Critically low >=60 [facility] Comment on above: Performed By: #### C MP ####[facility] Jeteowxnql0416 [place] [phone]. Airam Tripathi EGFR-NON AF PANAMANIAN 43 mL/min/1.73m2 Critically low >=60 [facility] Comment on above: Performed By: #### C MP ####[facility] Odlctmlper0045 [place] [phone]. Airam Tripathi Globulin (S) [Mass/Vol] 3.3 g/dL Normal [facility] Comment on above: Performed By: #### C MP ####[facility] Qymftqnykz7055 [place] [address]Dr. Airam Tripathi Glucose [Mass/Vol] 90 mg/dL Normal 74-106 [facility] Comment on above: Performed By: #### C MP ####[facility] Abcvyulkzw0244 [place] [address]Dr. Airam Tripathi Potassium [Moles/Vol] 5.1 mmol/L Normal 3.5-5.1 [facility] Comment on above: Performed By: #### C MP ####[facility] Mewjuijinj674[address] [place], [place] [address]Dr. Airam Tripathi Protein [Mass/Vol] 6.4 g/dL Normal 6.4-8.2 [facility] Comment on above: Performed By: #### C MP ####[facility] Oyladnkxbb045[address] [place], [place] [address]Dr. Airam Tripathi Sodium [Moles/Vol] 134 mmol/L Critically low 136-145 [facility] Comment on above: Performed By: #### C MP ####[facility] Qzyvwigshx707333 [address] [place], [place] [address]Dr. Airam Tripathi Urea nitrogen [Mass/Vol] 33.0 mg/dL Critically high 7.0-18.0 [facility] Comment on above: Performed By: #### C MP ####[facility] Wxfskirbov799[address] [place], [place] [address]Dr. Airam Tripathi Urea nitrogen/Creatinine [Mass ratio] 26.0 mg/mg Normal [facility] Comment on above: Performed By: #### C MP ####[facility] Oyfrmsktrj[address] [place], [place] [address]Dr. Airam Tripathi OSMOLALITYon 10-15-2022 Osmolality [Osmolality] 272 mosm/kg Critically low 275-295 [facility] Comment on above: Performed By: #### O SMO ####[facility] Ykzkltehvs28[address] [place] [address]Dr. Airam Tripathi BNPon 10-12-2022 Natriuretic peptide B (Bld) [Mass/Vol] 1337.0 pg/mL Critically high <=900.0 [facility] Comment on above: Performed By: #### B CONTENT STRATEGIST ####[facility] Rxforujlqs3430[address] [place], [place] [address]Dr. Airam Tripathi CBC AUTO DIFFon 10-12-2022 BASO # 0.0 103/ul Normal 0.0-0.1 [facility] Comment on above: Performed By: #### C BC ####[facility] Xbheajbxuc837[address] [place], [place] [address]Dr. Selenaneil Tripathi Basophils/100 WBC (Bld) 0.6 % Normal 0.2-2.0 [facility] Comment on above: Performed By: #### C BC ####[facility] Jynexqeljf894[address] [place], [place] [address]Dr. Selenaneil Deuce EO # 0.2 103/ul Normal 0.0-0.7 [facility] Comment on above: Performed By: #### C BC ####[facility] Cisjslzeoa26[address] [place], [place] [address]Dr. Airam Deuce Eosinophils/100 WBC (Bld) 2.3 % Normal 0.9-7.0 [facility] Comment on above: Performed By: #### C BC ####[facility] Umahtkwcvt5[address] [place], [place] [address]Dr. Selenaneil Deuce Erythrocyte distribution width (RBC) [Ratio] 15.1 % Critically high 11.0-15.0 [facility] Comment on above: Performed By: #### C BC ####[facility] Jgaupvnllr6925[address] [place], [place] [address]Dr. Airam Deuce Hematocrit (Bld) [Volume fraction] 35.9 % Critically low 36.0-48.0 [facility] Comment on above: Performed By: #### C BC ####[facility] Lqvgphmmqx8867[address] [place], [place] [address]Dr. Airam Deuce Hemoglobin (Bld) [Mass/Vol] 11.4 g/dL Critically low 12.0-16.0 [facility] Comment on above: Performed By: #### C BC ####[facility] Wqsgdihufc3[address] [place] [address]DrKianna Tripathi IG # 0.03 10e3/ul Normal 0.00-0.03 [facility] Comment on above: Performed By: #### C BC ####[facility] Bdjmqrqeda0311 [place] [address]DrKianna Tripathi IG % 0.5 % Normal 0.0-0.5 [facility] Comment on above: Performed By: #### C BC ####[facility] Mpwtqosaar8722 [place] [address]DrKianna Tripathi LYMPH # 1.1 103/ul Critically low 1.2-3.8 [facility] Comment on above: Performed By: #### C BC ####[facility] Rsxmlspnbt3353 [place] [address]DrKianna Tripathi Lymphocytes/100 WBC (Bld) 17.2 % Critically low 20.5-60.0 [facility] Comment on above: Performed By: #### C BC ####[facility] Gmqrhhoiuq9590 [place] [address]DrKianna Tripathi MANUAL DIFF REQ NO Normal [facility] Comment on above: Performed By: #### C BC ####[facility] Cknellnwbj3121 [place] [address]DrKianna Tripathi MCH (RBC) [Entitic mass] 28.8 pg Normal 26.7-34.0 [facility] Comment on above: Performed By: #### C BC ####[facility] Rqjzghcyut6556 [place] [phone] Tripathi MCHC (RBC) [Mass/Vol] 31.8 g/dL Normal 29.9-35.2 [facility] Comment on above: Performed By: #### C BC ####[facility] Qbanjibxmx4144 [place] [phone] Tripathi MCV (RBC) [Entitic vol] 90.7 fL Normal 81.0-99.0 [facility] Comment on above: Performed By: #### C BC ####[facility] Gyhxbxztlr7834 [place] [address]Dr. Airam Tripathi MONO # 0.5 103/ul Normal 0.3-0.8 [facility] Comment on above: Performed By: #### C BC ####[facility] Ctnvclcoys2549 [place] [address]Dr. Airam Tripathi Monocytes/100 WBC (Bld) 7.7 % Normal 1.7-12.0 [facility] Comment on above: Performed By: #### C BC ####[facility] Zcfxxqzwhh724[address] [place], [place] [address]Dr. Airam Tripathi NEUT # 4.7 103/ul Normal 1.4-6.5 [facility] Comment on above: Performed By: #### C BC ####[facility] Cenpxbvwva6830[address] [place], [place] [address]Dr. Airam Tripathi Neutrophils/100 WBC (Bld) 71.7 % Normal 43.0-75.0 [facility] Comment on above: Performed By: #### C BC ####[facility] Ebfipmndak8834[address] [place], [place] [address]Dr. Airam Tripathi Platelet mean volume (Bld) [Entitic vol] 8.2 fL Critically low 9.5-13.5 [facility] Comment on above: Performed By: #### C BC ####[facility] Wczdvqiwzz4713 [place] [address]Dr. Airam Tripathi PLT 292 103/ul Normal 150-450 [facility] Comment on above: Performed By: #### C BC ####[facility] Nlrdovpczd9547 [place] [phone]. Airam Tripathi RBC 3.96 106/ul Critically low 4.20-5.40 [facility] Comment on above: Performed By: #### C BC ####[facility] Vpwpyxlafa3050 [place] [address]Dr. Airam Tripathi WBC 6.6 103/ul Normal 4.0-11.0 [facility] Comment on above: Performed By: #### C BC ####[facility] Qnbwyvmnag8319 [place] [address]Dr. Airam Tripathi PROF 14(COMP METB)on 023 Albumin [Mass/Vol] 3.3 g/dL Critically low 3.4-5.0 [facility] Comment on above: Performed By: #### C MP ####[facility] Cwghyetzwq8246 [place] [address]Dr. Airam Tripathi Albumin/Globulin [Mass ratio] 0.9 {ratio} Normal [facility] Comment on above: Performed By: #### C MP ####[facility] Kyytnsgpyk7502 [place] [address]Dr. Airam Tripathi ALP [Catalytic activity/Vol] 130 U/L Critically high 46-116 [facility] Comment on above: Performed By: #### C MP ####[facility] Ypizsckryy79[address] [place], [place] [address]Dr. Airam Tripathi ALT [Catalytic activity/Vol] 23 U/L Normal 14-59 [facility] Comment on above: Performed By: #### C MP ####[facility] Uaiuofdgye426[address] [place], [place] [address]Dr. Airam Tripathi Anion gap [Moles/Vol] 11.7 mmol/L Normal [facility] Comment on above: Performed By: #### C MP ####[facility] Vkqwophofv0876[address] [place], [place] [address]Dr. Airam Tripathi AST [Catalytic activity/Vol] 23 U/L Normal 15-37 [facility] Comment on above: Performed By: #### C MP ####[facility] Savdexeopl2028[address] [place], [place] [address]Dr. Airam Tripathi Bilirubin [Mass/Vol] 0.3 mg/dL Normal 0.2-1.0 [facility] Comment on above: Performed By: #### C MP ####[facility] Zpmbwtoqio7730[address] [place], [place] [address]Dr. Airam Tripathi Calcium [Mass/Vol] 8.7 mg/dL Normal 8.5-10.1 [facility] Comment on above: Performed By: #### C MP ####[facility] Xnjyjoeeah9286 [place] [address]Dr. Airam Tripathi Chloride [Moles/Vol] 99 mmol/L Normal 98-107 [facility] Comment on above: Performed By: #### C MP ####[facility] Cngpeqnluy4055 [place] [address]Dr. Airam rTipathi CO2 [Moles/Vol] 28.5 mmol/L Normal 21.0-32.0 [facility] Comment on above: Performed By: #### C MP ####[facility] Euxgihsqee1727 [place] [address]Dr. Airam Tripathi Creatinine [Mass/Vol] 1.06 mg/dL Critically high 0.55-1.02 [facility] Comment on above: Performed By: #### C MP ####[facility] Yktakqhbxi7839[address] [place], [place] [address]Dr. Airam Tripathi EGFR-AF PANAMANIAN >60 Normal >=60 [facility] Comment on above: Performed By: #### C MP ####[facility] Fgnibzbuin1653 [place] [address]Dr. Airam Tripathi EGFR-NON AF PANAMANIAN 53 mL/min/1.73m2 Critically low >=60 [facility] Comment on above: Performed By: #### C MP ####[facility] Izebhuhtmr0870 [place] [address]Dr. Airam Tripathi Globulin (S) [Mass/Vol] 3.5 g/dL Normal [facility] Comment on above: Performed By: #### C MP ####[facility] Ybulyxgoge0049 [place] [address]Dr. Airam Tripathi Glucose [Mass/Vol] 79 mg/dL Normal 74-106 [facility] Comment on above: Performed By: #### C MP ####[facility] Jjeolconla8267 [place] [address]Dr. Airam Tripathi Potassium [Moles/Vol] 4.2 mmol/L Normal 3.5-5.1 [facility] Comment on above: Performed By: #### C MP ####[facility] Lineumsckw4380[address] [place], [place] [address]Dr. Airam Tripathi Protein [Mass/Vol] 6.8 g/dL Normal 6.4-8.2 [facility] Comment on above: Performed By: #### C MP ####[facility] Qkmaupqwrp5864[address] [place], [place] [address]Dr. Airam Tripathi Sodium [Moles/Vol] 135 mmol/L Critically low 136-145 [facility] Comment on above: Performed By: #### C MP ####[facility] Cqlabdxfpp5725[address] [place], [place] [address]Dr. Airam Tripathi Urea nitrogen [Mass/Vol] 16.0 mg/dL Normal 7.0-18.0 [facility] Comment on above: Performed By: #### C MP ####[facility] Gjdubqackm2712[address] [place], [place] [address]Dr. Selenaneil Deuce Urea nitrogen/Creatinine [Mass ratio] 15.1 mg/mg Normal [facility] Comment on above: Performed By: #### C MP ####[facility] Wmsvoynvbd4577[address] [place], [place] [address]Dr. Airam Deuce XR CHEST 1 Von 10-12-2022 XR CHEST 1 V Normal [facility] PRBC LEUKOREDUCEDon 10-10-19 23 PRBC LEUKOREDUCED Normal [facility] Comment on above: Performed By: #### P RBC ####[facility] Vojwavbaaw1159[address] [place], [place] [address]Dr. Airam Tripathi CULTURE URINEon 10-08-2022 CULTURE URINE Normal [facility] Comment on above: Performed By: #### U RCX ####[facility] Blndgejsrm9897[address] [place], [place] [address]Dr. Airam Tripathi OSMOLALITYon 10-08-2022 Osmolality [Osmolality] 282 mosm/kg Normal 275-295 [facility] Comment on above: Performed By: #### O SMO ####[facility] Llxsgtpbmk5110[address] [place], [place] [address]Dr. Airam Deuce CBC AUTO DIFFon 10-07-2022 BASO # 0.0 103/ul Normal 0.0-0.1 [facility] Comment on above: Performed By: #### C BC ####[facility] Hvvwmaeefq900[address] [place], [place] [address]DrKianna Tripathi Basophils/100 WBC (Bld) 0.3 % Normal 0.2-2.0 [facility] Comment on above: Performed By: #### C BC ####[facility] Narnmvrxpx5228[address] [place], [place] [address]DrKianna Tripathi EO # 0.2 103/ul Normal 0.0-0.7 [facility] Comment on above: Performed By: #### C BC ####[facility] Bacwhwlwxy215[address] [place], [place] [address]Dr. Airam Tripathi Eosinophils/100 WBC (Bld) 3.4 % Normal 0.9-7.0 [facility] Comment on above: Performed By: #### C BC ####[facility] Ukosuamlqu636[address] [place], [place] [address]Dr. Airam Tripathi Erythrocyte distribution width (RBC) [Ratio] 15.2 % Critically high 11.0-15.0 [facility] Comment on above: Performed By: #### C BC ####[facility] Oruyetkbpo0118[address] [place], [place] [address]Dr. Airam Tripathi Hematocrit (Bld) [Volume fraction] 31.3 % Critically low 36.0-48.0 [facility] Comment on above: Performed By: #### C BC ####[facility] Guqcaumjiw25[address] [place], [place] [address]Dr. Airam Tripathi Hemoglobin (Bld) [Mass/Vol] 9.9 g/dL Critically low 12.0-16.0 [facility] Comment on above: Performed By: #### C BC ####[facility] Hyrcvlezmm4[address] [place], [place] [address]DrKianna Tripathi IG # 0.03 10e3/ul Normal 0.00-0.03 [facility] Comment on above: Performed By: #### C BC ####[facility] Okgvsngmka08[address] [place], [place] [address]DrKianna Tripathi IG % 0.4 % Normal 0.0-0.5 [facility] Comment on above: Performed By: #### C BC ####[facility] V[address]xkgzzez[address] [place] [address]DrKianna Tripathi LYMPH # 1.3 103/ul Normal 1.2-3.8 [facility] Comment on above: Performed By: #### C BC ####[facility] Jntucjegop01[address] [place] [address]DrKianna Tripathi Lymphocytes/100 WBC (Bld) 19.0 % Critically low 20.5-60.0 [facility] Comment on above: Performed By: #### C BC ####[facility] Gnkbctnzjc5712[address] [place], [place] [address]DrKianna Tripathi MANUAL DIFF REQ NO Normal [facility] Comment on above: Performed By: #### C BC ####[facility] Pnbrlrwysn8920[address] [place], [place] [address]DrKianna Tripathi MCH (RBC) [Entitic mass] 28.1 pg Normal 26.7-34.0 [facility] Comment on above: Performed By: #### C BC ####[facility] Ghvrpeigko8507[address] [place], [place] [address]DrKianna Airam Deuce MCHC (RBC) [Mass/Vol] 31.6 g/dL Normal 29.9-35.2 [facility] Comment on above: Performed By: #### C BC ####[facility] Yoinosxswn1732[address] [place], [place] [address]DrKianna Tripathi MCV (RBC) [Entitic vol] 88.9 fL Normal 81.0-99.0 [facility] Comment on above: Performed By: #### C BC ####[facility] Umcvwvufgr7[address] [place], [place] [address]DrKianna Tripathi MONO # 0.6 103/ul Normal 0.3-0.8 [facility] Comment on above: Performed By: #### C BC ####[facility] Mbqjqfzhvu3810[address] [place], [place] [address]DrKianna Tripathi Monocytes/100 WBC (Bld) 9.0 % Normal 1.7-12.0 [facility] Comment on above: Performed By: #### C BC ####[facility] Owhaxqzvdl8022 [place] [address]Dr. Airam Tripathi NEUT # 4.5 103/ul Normal 1.4-6.5 [facility] Comment on above: Performed By: #### C BC ####[facility] Awtyhzhmpj6564 [place] [address]DrKianna Waltersneil Deuce Neutrophils/100 WBC (Bld) 67.9 % Normal 43.0-75.0 [facility] Comment on above: Performed By: #### C BC ####[facility] Umgoceqnyj2687 [place] [address]DrKianna Tripathi Platelet mean volume (Bld) [Entitic vol] 9.1 fL Critically low 9.5-13.5 [facility] Comment on above: Performed By: #### C BC ####[facility] Exdvwvemtw7667[address] [place], [place] [address]DrKianna Tripathi PLT 256 103/ul Normal 150-450 [facility] Comment on above: Performed By: #### C BC ####[facility] Kwlnxwzfnm948[address] [place], [place] [address]DrKianna Tripathi RBC 3.52 106/ul Critically low 4.20-5.40 [facility] Comment on above: Performed By: #### C BC ####[facility] Kmfljlsnvz894[address] [place], [place] [address]DrKianna Tripathi WBC 6.7 103/ul Normal 4.0-11.0 [facility] Comment on above: Performed By: #### C BC ####[facility] Stzvdhghfu0788[address] [place], [place] [address]DrKianna Tripathi PROF 14(COMP METB)on 023 Albumin [Mass/Vol] 2.8 g/dL Critically low 3.4-5.0 [facility] Comment on above: Performed By: #### C MP ####[facility] Ogdqacbrds9767[address] [place], [place] [address]DrKianna Tripathi Albumin/Globulin [Mass ratio] 0.9 {ratio} Normal [facility] Comment on above: Performed By: #### C MP ####[facility] Zvwhrqxkhq30[address] [place] [address]Dr. Airam Deuce ALP [Catalytic activity/Vol] 118 U/L Critically high 46-116 [facility] Comment on above: Performed By: #### C MP ####[facility] Zlwgokyrxz6609 [place] [address]Dr. Airam Deuce ALT [Catalytic activity/Vol] 23 U/L Normal 14-59 [facility] Comment on above: Performed By: #### C MP ####[facility] Ckmyupdpec0215[address] [place], [place] [address]Dr. Airam Tripathi Anion gap [Moles/Vol] 12.5 mmol/L Normal Th [facility] Comment on above: Performed By: #### C MP ####[facility] Hoenyyumyj0637[address] [place], [place] [address]Dr. Ariam Deuce AST [Catalytic activity/Vol] 21 U/L Normal 15-37 [facility] Comment on above: Performed By: #### C MP ####[facility] Ycmrivntwv6910[address] [place], [place] [address]Dr. Airam Tripathi Bilirubin [Mass/Vol] 0.4 mg/dL Normal 0.2-1.0 [facility] Comment on above: Performed By: #### C MP ####[facility] Zxeafherqi4124[address] [place], [place] [address]Dr. Airam Tripatih Calcium [Mass/Vol] 8.2 mg/dL Critically low 8.5-10.1 [facility] Comment on above: Performed By: #### C MP ####[facility] Nywrpztfia0005[address] [place], [place] [address]Dr. Airam Tripathi Chloride [Moles/Vol] 99 mmol/L Normal 98-107 [facility] Comment on above: Performed By: #### C MP ####[facility] Yerlpcnjln2054[address] [place], [place] [address]Dr. Airam Tripathi CO2 [Moles/Vol] 24.9 mmol/L Normal 21.0-32.0 [facility] Comment on above: Performed By: #### C MP ####[facility] Vilfwnuond14[address] [place] [address]Dr. Airam Tripathi Creatinine [Mass/Vol] 1.61 mg/dL Critically high 0.55-1.02 [facility] Comment on above: Performed By: #### C MP ####[facility] Xwmigidmbd3517 [place] [address]Dr. Airam Tripathi EGFR-AF PANAMANIAN 40 mL/min/1.73m2 Critically low >=60 [facility] Comment on above: Performed By: #### C MP ####[facility] Ikxzpnkqee137833 [address] [place], [place] [address]Dr. Airam Tripathi EGFR-NON AF PANAMANIAN 33 mL/min/1.73m2 Critically low >=60 [facility] Comment on above: Performed By: #### C MP ####[facility] Wlnzuxfzhu8634[address] [place], [place] [address]Dr. Airam Tripathi Globulin (S) [Mass/Vol] 3.2 g/dL Normal [facility] Comment on above: Performed By: #### C MP ####[facility] Fwxnwrawbz360833 [address] [place], [place] [address]Dr. Airam Tripathi Glucose [Mass/Vol] 67 mg/dL Critically low 74-106 [facility] Comment on above: Performed By: #### C MP ####[facility] Wgojftwuea067533 [address] [place], [place] [address]Dr. Airam Tripathi Potassium [Moles/Vol] 5.4 mmol/L Critically high 3.5-5.1 [facility] Comment on above: Performed By: #### C MP ####[facility] Tlbfqkkrfa5294[address] [place], [place] [address]Dr. Airam Tripathi Protein [Mass/Vol] 6.0 g/dL Critically low 6.4-8.2 [facility] Comment on above: Performed By: #### C MP ####[facility] Lgsshyvdhk968933 [address] [place], [place] [address]Dr. Airam Tripathi Sodium [Moles/Vol] 131 mmol/L Critically low 136-145 Th [facility] Comment on above: Performed By: #### C MP ####[facility] Wyreviomrk6823[address] [place], [place] [address]Dr. Airam Tripathi Urea nitrogen [Mass/Vol] 43.0 mg/dL Critically high 7.0-18.0 [facility] Comment on above: Performed By: #### C MP ####[facility] Efoyjzhude6615[address] [place], [place] [address]Dr. Airam Deuce Urea nitrogen/Creatinine [Mass ratio] 26.7 mg/mg Normal [facility] Comment on above: Performed By: #### C MP ####[facility] Lqiacumbse150533 [address] [place], [place] [address]Dr. Airam Deuce CBC AUTO DIFFon 10-06-2022 BASO # 0.0 103/ul Normal 0.0-0.1 [facility] Comment on above: Performed By: #### C BC ####[facility] Hydmepdofw5656[address] [place], [place] [address]Dr. Airam Deuce Basophils/100 WBC (Bld) 0.3 % Normal 0.2-2.0 [facility] Comment on above: Performed By: #### C BC ####[facility] Csjzxauzki2114[address] [place], [place] [address]Dr. Airam Deuce EO # 0.2 103/ul Normal 0.0-0.7 [facility] Comment on above: Performed By: #### C BC ####[facility] Rdfftshasg493533 [address] [place], [place] [address]Dr. Selenaneil Tripathi Eosinophils/100 WBC (Bld) 3.1 % Normal 0.9-7.0 [facility] Comment on above: Performed By: #### C BC ####[facility] Bkqmruciro037[address] [place], [place] [address]Dr. Airam Deuce Erythrocyte distribution width (RBC) [Ratio] 15.0 % Normal 11.0-15.0 [facility] Comment on above: Performed By: #### C BC ####[facility] Caszlcsmmp3985[address] [place], [place] [address]Dr. Airam Tripathi Hematocrit (Bld) [Volume fraction] 30.9 % Critically low 36.0-48.0 [facility] Comment on above: Performed By: #### C BC ####[facility] Gobstjalni[address] [place] [address]Dr. Airam Tripathi Hemoglobin (Bld) [Mass/Vol] 10.1 g/dL Critically low 12.0-16.0 [facility] Comment on above: Result Comment: BIJU ENT RECIEVED 2 UNITS PRBC'S Performed By: #### C BC ####[facility] Tubwvkztaz375[address] [place], [place] [address]Dr. Airam Tripathi IG # 0.03 10e3/ul Normal 0.00-0.03 [facility] Comment on above: Performed By: #### C BC ####[facility] Lypexdnmzt044[address] [place], [place] [address]Dr. Airam Tripathi IG % 0.4 % Normal 0.0-0.5 [facility] Comment on above: Performed By: #### C BC ####[facility] Iqcidkkdci925733 [address] [place], [place] [address]Dr. Airam Tripathi LYMPH # 1.1 103/ul Critically low 1.2-3.8 [facility] Comment on above: Performed By: #### C BC ####[facility] Comwpfcrlk3401[address] [place], [place] [address]Dr. Airam Tripathi Lymphocytes/100 WBC (Bld) 14.4 % Critically low 20.5-60.0 [facility] Comment on above: Performed By: #### C BC ####[facility] Bxpvspnguy3019[address] [place], [place] [address]Dr. Airam Tripathi MANUAL DIFF REQ NO Normal [facility] Comment on above: Performed By: #### C BC ####[facility] Nohlmffbzd7345[address] [place], [place] [address]Dr. Airam Tripathi MCH (RBC) [Entitic mass] 28.9 pg Normal 26.7-34.0 [facility] Comment on above: Performed By: #### C BC ####[facility] [address]dwf[address] [place] [id number]. Airam Tripathi MCHC (RBC) [Mass/Vol] 32.7 g/dL Normal 29.9-35.2 [facility] Comment on above: Performed By: #### C BC ####[facility] Akyamksnmg1689 [place] [id number]. Airam Tripathi MCV (RBC) [Entitic vol] 88.3 fL Normal 81.0-99.0 [facility] Comment on above: Performed By: #### C BC ####[facility] Logpcglpdd9078 [place] [id number]. Airam Tripathi MONO # 0.6 103/ul Normal 0.3-0.8 [facility] Comment on above: Performed By: #### C BC ####[facility] Ywbnvxqgwc4694[address] [place], [place] [address]Dr. Airam Deuce Monocytes/100 WBC (Bld) 7.8 % Normal 1.7-12.0 [facility] Comment on above: Performed By: #### C BC ####[facility] Nqbrdcnown[address] [place], [place] [address]Dr. Airam Tripathi NEUT # 5.5 103/ul Normal 1.4-6.5 [facility] Comment on above: Performed By: #### C BC ####[facility] Pnkmvrehtg6515[address] [place], [place] [address]Dr. Airam Tripathi Neutrophils/100 WBC (Bld) 74.0 % Normal 43.0-75.0 [facility] Comment on above: Performed By: #### C BC ####[facility] Zgwyiefaop6725 [place] [id number]. Airam Tripathi Platelet mean volume (Bld) [Entitic vol] 9.2 fL Critically low 9.5-13.5 [facility] Comment on above: Performed By: #### C BC ####[facility] Cjrkdmeoan[address] [place], [place] [address]Dr. Airam Deuce PLT 275 103/ul Normal 150-450 [facility] Comment on above: Performed By: #### C BC ####[facility] Ijpqsyrsts7049 [place] [id number]. Airam Tripathi RBC 3.50 106/ul Critically low 4.20-5.40 [facility] Comment on above: Performed By: #### C BC ####[facility] Hydwhkhwvi8876 [place] [id number]. Airam Tripathi WBC 7.4 103/ul Normal 4.0-11.0 [facility] Comment on above: Performed By: #### C BC ####[facility] Xcmdqzkjph3377 [place] [id number]. Airam Triapthi BASO # 0.0 103/ul Normal 0.0-0.1 [facility] Comment on above: Performed By: #### C BC ####[facility] Lwdpvsemiv2167 [place] [id number]. Airam Tripathi Basophils/100 WBC (Bld) 0.4 % Normal 0.2-2.0 [facility] Comment on above: Performed By: #### C BC ####[facility] Qhrbbnehqx[address] [place], [place] [address]Dr. Airam Tripathi EO # 0.2 103/ul Normal 0.0-0.7 [facility] Comment on above: Performed By: #### C BC ####[facility] Lcovydbqfl[address] [place], [place] [address]Dr. Airam Tripathi Eosinophils/100 WBC (Bld) 4.5 % Normal 0.9-7.0 [facility] Comment on above: Performed By: #### C BC ####[facility] [address]swzjdhhnv1894 [place] [address]Dr. Airam Tripathi Erythrocyte distribution width (RBC) [Ratio] 15.1 % Critically high 11.0-15.0 [facility] Comment on above: Performed By: #### C BC ####[facility] Higtjxmkly[address] [place], [place] [address]Dr. Airam Tripathi Hematocrit (Bld) [Volume fraction] 23.0 % Critically low 36.0-48.0 [facility] Comment on above: Performed By: #### C BC ####[facility] Uyrcbxrbsz4407 [place] [id number]. Airam Tripathi Hemoglobin (Bld) [Mass/Vol] 7.2 g/dL Critically low 12.0-16.0 [facility] Comment on above: Performed By: #### C BC ####[facility] Ftldwkccxa4435 [place] [id number]. Airam Tripathi IG # 0.02 10e3/ul Normal 0.00-0.03 [facility] Comment on above: Performed By: #### C BC ####[facility] [address]azbayfzw83[address] [place] [address]Dr. Airam Tripathi IG % 0.4 % Normal 0.0-0.5 [facility] Comment on above: Performed By: #### C BC ####[facility] Zvgjygtucq1219 [place] [address]Dr. Airam Tripathi LYMPH # 1.0 103/ul Critically low 1.2-3.8 [facility] Comment on above: Performed By: #### C BC ####[facility] Vxrbbumrza9264 [place] [address]Dr. Airam Tripathi Lymphocytes/100 WBC (Bld) 22.5 % Normal 20.5-60.0 [facility] Comment on above: Performed By: #### C BC ####[facility] Pamfqdabgj0867 [place] [address]Dr. Airam Tripathi MANUAL DIFF REQ NO Normal [facility] Comment on above: Performed By: #### C BC ####[facility] Ecgppunqgv85[address] [place] [address]Dr. Airam Tripathi MCH (RBC) [Entitic mass] 28.3 pg Normal 26.7-34.0 [facility] Comment on above: Performed By: #### C BC ####[facility] Myhxhogpmf8567 [place] [address]Dr. Airam Tripathi MCHC (RBC) [Mass/Vol] 31.3 g/dL Normal 29.9-35.2 [facility] Comment on above: Performed By: #### C BC ####[facility] Pkmwyjpmca6892 [place] [phone]. Airam Tripathi MCV (RBC) [Entitic vol] 90.6 fL Normal 81.0-99.0 [facility] Comment on above: Performed By: #### C BC ####[facility] Xozgffjsjs7093 [place] [id number]. Airam Tripathi MONO # 0.5 103/ul Normal 0.3-0.8 [facility] Comment on above: Performed By: #### C BC ####[facility] Cudllgpgmt0202 [place] [address]Dr. Airam Tripathi Monocytes/100 WBC (Bld) 9.7 % Normal 1.7-12.0 [facility] Comment on above: Performed By: #### C BC ####[facility] Wbleywwsdw95[address] [place], [place] [address]Dr. Airam Tripathi NEUT # 2.9 103/ul Normal 1.4-6.5 [facility] Comment on above: Performed By: #### C BC ####[facility] Gvyxxvfvgp5870 [place] [address]Dr. Airam Tripathi Neutrophils/100 WBC (Bld) 62.5 % Normal 43.0-75.0 [facility] Comment on above: Performed By: #### C BC ####[facility] Fffnevzrel79[address] [place], [place] [address]Dr. Airam Tripathi Platelet mean volume (Bld) [Entitic vol] 8.9 fL Critically low 9.5-13.5 [facility] Comment on above: Performed By: #### C BC ####[facility] Wekvcgnmul110[address] [place] [phone]. Airam Tripathi PLT 210 103/ul Normal 150-450 [facility] Comment on above: Performed By: #### C BC ####[facility] Yjmjdnbzke[address] [place], [place] [address]Dr. Airam Tripathi RBC 2.54 106/ul Critically low 4.20-5.40 [facility] Comment on above: Performed By: #### C BC ####[facility] Gxajtdgxvh170[address] [place], [place] [address]Dr. Airam Tripathi WBC 4.6 103/ul Normal 4.0-11.0 [facility] Comment on above: Performed By: #### C BC ####[facility] Mespaoscla[address] [place] [address]Dr. Airam Tripathi OSMOLALITYon 10-06-2022 Osmolality [Osmolality] 279 mosm/kg Normal 275-295 [facility] Comment on above: Performed By: #### O SMO ####[facility] Wgzqobltxr25[address] [place] [address]Dr. Airam Tripathi POINT OF CARE GLUCOSEon 09-24 Glucose [Mass/Vol] 72 mg/dL Critically low 74-106 [facility] Comment on above: Performed By: #### P OCGLUC ####[facility] Wzuvltbwvo95[address] [place] [address]Dr. Airam Tripathi Glucose [Mass/Vol] 102 mg/dL Normal 74-106 [facility] Comment on above: Performed By: #### P OCGLUC ####[facility] Sicemucnkz5416 [place] [address]Dr. Airam Tripathi Glucose [Mass/Vol] 165 mg/dL Critically high 74-106 [facility] Comment on above: Performed By: #### P OCGLUC ####[facility] [address]zkhbiujuu58[address] [place] [address]Dr. Airam Tripathi PROF 14(COMP METB)on 023 Albumin [Mass/Vol] 2.6 g/dL Critically low 3.4-5.0 [facility] Comment on above: Performed By: #### C MP ####[facility] Xnlrirosbi39[address] [place] [address]Dr. Airam Tripathi Albumin/Globulin [Mass ratio] 0.9 {ratio} Normal [facility] Comment on above: Performed By: #### C MP ####[facility] Uhnvchlcji[address] [place] [address]Dr. Airam Tripathi ALP [Catalytic activity/Vol] 107 U/L Normal 46-116 [facility] Comment on above: Performed By: #### C MP ####[facility] Iytpgzonun2765 [place] [phone]. Airam Tripathi ALT [Catalytic activity/Vol] 22 U/L Normal 14-59 [facility] Comment on above: Performed By: #### C MP ####[facility] Gkuchpvlrl5285 [place] [phone]. Airam Tripathi Anion gap [Moles/Vol] 10.0 mmol/L Normal Th [facility] Comment on above: Performed By: #### C MP ####[facility] Evisvqwiuk2120 [place] [phone]. Airam Tripathi AST [Catalytic activity/Vol] 19 U/L Normal 15-37 [facility] Comment on above: Performed By: #### C MP ####[facility] Uhlrlqplxf5[address] [place] [address]Dr. Airam Tripathi Bilirubin [Mass/Vol] 0.2 mg/dL Normal 0.2-1.0 [facility] Comment on above: Performed By: #### C MP ####[facility] Arvyjwzbnx5194 [place] [id number]. Airam Tripathi Calcium [Mass/Vol] 8.1 mg/dL Critically low 8.5-10.1 [facility] Comment on above: Performed By: #### C MP ####[facility] Eebbbqnfaa4695 [place] [phone]. Airam Tripathi Chloride [Moles/Vol] 100 mmol/L Normal 98-107 [facility] Comment on above: Performed By: #### C MP ####[facility] Focijmvekl4905 [place] [phone]. Airam Tripathi CO2 [Moles/Vol] 26.2 mmol/L Normal 21.0-32.0 [facility] Comment on above: Performed By: #### C MP ####[facility] Ncttlfizvs7876 [place] [phone]. Airam Tripathi Creatinine [Mass/Vol] 1.90 mg/dL Critically high 0.55-1.02 [facility] Comment on above: Performed By: #### C MP ####[facility] Dombkndhkx0398 [place] [id number]. Airam Tripathi EGFR-AF PANAMANIAN 33 mL/min/1.73m2 Critically low >=60 [facility] Comment on above: Performed By: #### C MP ####[facility] Aoeupjmmdk0425 [place] [id number]. Airam Tripathi EGFR-NON AF PANAMANIAN 27 mL/min/1.73m2 Critically low >=60 [facility] Comment on above: Performed By: #### C MP ####[facility] Rjrkptytwj5149 [place] [phone]. Airam Tripathi Globulin (S) [Mass/Vol] 2.8 g/dL Normal [facility] Comment on above: Performed By: #### C MP ####[facility] Sojncuokrl5401 [place] [phone]. Airam Tripathi Glucose [Mass/Vol] 115 mg/dL Critically high 74-106 [facility] Comment on above: Performed By: #### C MP ####[facility] Rjvnxhhkev6542 [place] [phone]. Airam Tripathi Potassium [Moles/Vol] 5.2 mmol/L Critically high 3.5-5.1 [facility] Comment on above: Performed By: #### C MP ####[facility] Nfksphplyf7279 [place] [phone]. Airam Tripathi Protein [Mass/Vol] 5.4 g/dL Critically low 6.4-8.2 [facility] Comment on above: Performed By: #### C MP ####[facility] Kuhtdikhhw2796 [place] [phone]. Airam Tripathi Sodium [Moles/Vol] 131 mmol/L Critically low 136-145 [facility] Comment on above: Performed By: #### C MP ####[facility] Tznbwfbfdv7793 [place] [phone]. Airam Tripathi Urea nitrogen [Mass/Vol] 41.0 mg/dL Critically high 7.0-18.0 [facility] Comment on above: Performed By: #### C MP ####[facility] Naitfswzcf1626 [place] [phone]. Airam Tripathi Urea nitrogen/Creatinine [Mass ratio] 21.6 mg/mg Normal [facility] Comment on above: Performed By: #### C MP ####[facility] [address] [place], [place] [id number]. Airam Tripathi TYPE AND SCREENon 10-06-2022 TYPE AND SCREEN Negative Normal [facility] Comment on above: Performed By: #### T NS ####[facility] Ppyiokqrkj[address] [place], [place] [address]Dr. Airam Tripathi CBC AUTO DIFFon 10-05-2022 BASO # 0.0 103/ul Normal 0.0-0.1 [facility] Comment on above: Performed By: #### C BC ####[facility] Qrgdvxsxwy2799[address] [place], [place] [address]Dr. Airam Deuce Basophils/100 WBC (Bld) 0.5 % Normal 0.2-2.0 [facility] Comment on above: Performed By: #### C BC ####[facility] Xmltkkdbas7611[address] [place], [place] [address]Dr. Airam Tripathi EO # 0.2 103/ul Normal 0.0-0.7 [facility] Comment on above: Performed By: #### C BC ####[facility] Jtmifwixvs9330[address] [place], [place] [address]Dr. Airam Tripathi Eosinophils/100 WBC (Bld) 3.2 % Normal 0.9-7.0 [facility] Comment on above: Performed By: #### C BC ####[facility] Apdcgidsrc132133 [address] [place], [place] [address]Dr. Airam Tripathi Erythrocyte distribution width (RBC) [Ratio] 15.2 % Critically high 11.0-15.0 [facility] Comment on above: Performed By: #### C BC ####[facility] Qtxbakowfq5414[address] [place], [place] [address]Dr. Airam Tripathi Hematocrit (Bld) [Volume fraction] 24.7 % Critically low 36.0-48.0 [facility] Comment on above: Performed By: #### C BC ####[facility] [address]rt[address] [place] [address]Dr. Airam Tripathi Hemoglobin (Bld) [Mass/Vol] 7.6 g/dL Critically low 12.0-16.0 [facility] Comment on above: Performed By: #### C BC ####[facility] [address]uvwcm[address] [place] [address]Dr. Airam Tripathi IG # 0.02 10e3/ul Normal 0.00-0.03 [facility] Comment on above: Performed By: #### C BC ####[facility] Skbsuwtywz0105[address] [place], [place] [address]Dr. Airam Tripathi IG % 0.3 % Normal 0.0-0.5 [facility] Comment on above: Performed By: #### C BC ####[facility] Asswcwzvvi3230[address] [place], [place] [address]Dr. Airam Tripathi LYMPH # 1.1 103/ul Critically low 1.2-3.8 [facility] Comment on above: Performed By: #### C BC ####[facility] Vecydrpztx2984[address] [place], [place] [address]Dr. Airam Tripathi Lymphocytes/100 WBC (Bld) 18.4 % Critically low 20.5-60.0 [facility] Comment on above: Performed By: #### C BC ####[facility] Kbulmfiqmk2528[address] [place], [place] [address]Dr. Airam Tripathi MANUAL DIFF REQ NO Normal [facility] Comment on above: Performed By: #### C BC ####[facility] Rphkwlgdkp4097[address] [place], [place] [address]Dr. Airam Tripathi MCH (RBC) [Entitic mass] 28.5 pg Normal 26.7-34.0 [facility] Comment on above: Performed By: #### C BC ####[facility] Fjraicnbwk3240[address] [place], [place] [address]Dr. Airam Tripathi MCHC (RBC) [Mass/Vol] 30.8 g/dL Normal 29.9-35.2 [facility] Comment on above: Performed By: #### C BC ####[facility] [address]roc[address] [place] [id number]. Airam Tripathi MCV (RBC) [Entitic vol] 92.5 fL Normal 81.0-99.0 [facility] Comment on above: Performed By: #### C BC ####[facility] Evidiibysm[address] [place] [id number]. Airam Tripathi MONO # 0.6 103/ul Normal 0.3-0.8 [facility] Comment on above: Performed By: #### C BC ####[facility] Fnbtsuvyri[address] [place], [place] [id number]. Airam Tripathi Monocytes/100 WBC (Bld) 10.0 % Normal 1.7-12.0 [facility] Comment on above: Performed By: #### C BC ####[facility] Udypkzyggo4106[address] [place], [place] [address]Dr. Airam Tripathi NEUT # 4.0 103/ul Normal 1.4-6.5 [facility] Comment on above: Performed By: #### C BC ####[facility] Pdorqphksl[address] [place], [place] [id number]. Airam Tripathi Neutrophils/100 WBC (Bld) 67.6 % Normal 43.0-75.0 [facility] Comment on above: Performed By: #### C BC ####[facility] Iwlyvukroh3577[address] [place], [place] [address]Dr. Airam Tripathi Platelet mean volume (Bld) [Entitic vol] 8.8 fL Critically low 9.5-13.5 [facility] Comment on above: Performed By: #### C BC ####[facility] Pbrdkemvxv9[address] [place], [place] [id number]. Airam Tripathi PLT 226 103/ul Normal 150-450 [facility] Comment on above: Performed By: #### C BC ####[facility] Rcexfdsxgb[address] [place], [place] [id number]. Airam Tripathi RBC 2.67 106/ul Critically low 4.20-5.40 [facility] Comment on above: Performed By: #### C BC ####[facility] Fncjrutlsg8[address] [place], [place] [address]Zv. Airam Tripathi WBC 5.9 103/ul Normal 4.0-11.0 [facility] Comment on above: Performed By: #### C BC ####[facility] Mdffaywowu23[address] [place], [place] [address]Nw. Airam Tripathi Covid-19 PCR (CVDTBH)on 09-24 SARS-CoV-2 (COVID-19) RNA MIKE+probe Ql (Unsp spec) Not detected Normal NOT DETECTED [facility] Comment on above: Result Comment: When diagnostic [...] test is supported by the [employer] and Human Service's declaration that [...] Performed By: #### C VDTBH ####[facility] [address]abplp[address] [place] [id number]. Airam Tripathi MAGNESIUMon 10-05-2022 Magnesium [Mass/Vol] 1.7 mg/dL Critically low 1.8-2.4 [facility] Comment on above: Performed By: #### M G, CMP ####[facility] Eqhgjvvghi0376 [place] [id number]. Airam Tripathi POINT OF CARE GLUCOSEon 09-24 Glucose [Mass/Vol] 92 mg/dL Normal 74-106 [facility] Comment on above: Performed By: #### P OCGLUC ####[facility] Crimrtziej[address] [place] [address]Dr. Airam Tripathi PROF 14(COMP METB)on 023 Albumin [Mass/Vol] 2.9 g/dL Critically low 3.4-5.0 [facility] Comment on above: Performed By: #### Nadya Calderon, CMP ####[facility] Ftqshmzyey7[address] [place], [place] [address]Dr. Airam Tripathi Albumin/Globulin [Mass ratio] 0.9 {ratio} Normal [facility] Comment on above: Performed By: #### Nadya Calderon, CMP ####[facility] Mjwsztrqvd4927[address] [place], [place] [address]Dr. Airam Tripathi ALP [Catalytic activity/Vol] 122 U/L Critically high 46-116 [facility] Comment on above: Performed By: #### Nadya Calderon, CMP ####[facility] Yqmzurpfqa6394[address] [place], [place] [address]Dr. Airam Tripathi ALT [Catalytic activity/Vol] 24 U/L Normal 14-59 [facility] Comment on above: Performed By: #### Nadya Calderon, CMP ####[facility] Vljlzeqphq7249[address] [place], [place] [address]Dr. Airam Tripathi Anion gap [Moles/Vol] 13.1 mmol/L Normal [facility] Comment on above: Performed By: #### Nadya Calderon, CMP ####[facility] Mzxrtjuvyi7867[address] [place], [place] [address]Dr. Airam Tripathi AST [Catalytic activity/Vol] 21 U/L Normal 15-37 [facility] Comment on above: Performed By: #### Nadya Calderon, CMP ####[facility] Aqnlhytrcl2850[address] [place], [place] [address]Dr. Airam Tripathi Bilirubin [Mass/Vol] 0.2 mg/dL Normal 0.2-1.0 [facility] Comment on above: Performed By: #### Nadya Calderon, CMP ####[facility] Cwzxrylwwx3259[address] [place], [place] [address]Dr. Airam Tripathi Calcium [Mass/Vol] 8.4 mg/dL Critically low 8.5-10.1 [facility] Comment on above: Performed By: #### M G, CMP ####[facility] Xec[address]bmck[address] [place] [address]Dr. Airam Tripathi Chloride [Moles/Vol] 102 mmol/L Normal 98-107 [facility] Comment on above: Performed By: #### M G, CMP ####[facility] Wtgylondiu1395[address] [place], [place] [address]Dr. Selenaneil Deuce CO2 [Moles/Vol] 23.2 mmol/L Normal 21.0-32.0 [facility] Comment on above: Performed By: #### M G, CMP ####[facility] Tgzuwqhivx1000[address] [place], [place] [address]Dr. Airam Tripathi Creatinine [Mass/Vol] 1.96 mg/dL Critically high 0.55-1.02 [facility] Comment on above: Performed By: #### Nadya Calderon, CMP ####[facility] Yclgjqsxns5708[address] [place], [place] [address]Dr. Airam Tripathi EGFR-AF PANAMANIAN 32 mL/min/1.73m2 Critically low >=60 [facility] Comment on above: Performed By: #### Nadya Calderon, CMP ####[facility] Ckezjeklqq7770[address] [place], [place] [address]Dr. Airam Tripathi EGFR-NON AF PANAMANIAN 26 mL/min/1.73m2 Critically low >=60 [facility] Comment on above: Performed By: #### Nadya Calderon, CMP ####[facility] Dakzcqmdim4288[address] [place], [place] [address]Dr. Airam Tripathi Globulin (S) [Mass/Vol] 3.2 g/dL Normal [facility] Comment on above: Performed By: #### Nadya G, CMP ####[facility] Gzovrsczyq3545[address] [place], [place] [address]Dr. Airam Tripathi Glucose [Mass/Vol] 68 mg/dL Critically low 74-106 [facility] Comment on above: Performed By: #### M G, CMP ####[facility] Hedqasdjxo5996[address] [place], [place] [address]Dr. Airam Tripathi Potassium [Moles/Vol] 5.3 mmol/L Critically high 3.5-5.1 [facility] Comment on above: Performed By: #### M Yumiko, CMP ####[facility] Bjsaqqkigv6398[address] [place], [place] [address]Dr. Airam Tripathi Protein [Mass/Vol] 6.1 g/dL Critically low 6.4-8.2 Th [facility] Comment on above: Performed By: #### M Yumiko, CMP ####[facility] Cankwzdwec6313[address] [place], [place] [address]Dr. Airam Tripathi Sodium [Moles/Vol] 133 mmol/L Critically low 136-145 [facility] Comment on above: Performed By: #### M Yumiko, CMP ####[facility] Wvfxycktou7367[address] [place], [place] [address]Dr. Airam Tripathi Urea nitrogen [Mass/Vol] 39.0 mg/dL Critically high 7.0-18.0 [facility] Comment on above: Performed By: #### Nadya Calderon, CMP ####[facility] Twikjwextw8095[address] [place], [place] [address]Dr. Airam Tripathi Urea nitrogen/Creatinine [Mass ratio] 19.9 mg/mg Normal [facility] Comment on above: Performed By: #### Nadya Calderon, CMP ####[facility] Kvxwrniias1309[address] [place], [place] [address]Dr. Airam Tripathi SODIUM RANDOM URINEon 2022 Sodium (U) [Moles/Vol] 37 mmol/L Normal 30-90 [facility] Comment on above: Performed By: #### N AU ####[facility] Otucjcjcog176[address] [place], [place] [address]Dr. Airam Tripathi UA RANDOM W/MICROSCOPICon BACTERIA TRACE Abnormal NONE SEEN [facility] Comment on above: Performed By: #### U AMIC ####[facility] Owyadauffn24[address] [place], [place] [address]Dr. Airam Tripathi Bilirubin Ql (U) Negative Normal NEGATIVE [facility] Comment on above: Performed By: #### U AMIC ####[facility] Sjeggfwcfd6685[address] [place], [place] [address]Dr. Airam Tripathi CAST SEEN Abnormal NONE SEEN [facility] Comment on above: Performed By: #### U AMIC ####[facility] [address]oz[address]vcwx[address] [place] [address]Dr. Airam Tripathi Clarity (U) CLEAR Normal CLEAR [facility] Comment on above: Performed By: #### U AMIC ####[facility] [address]wrnzof[address] [place] [id number]. Airam Tripathi Color (U) YELLOW Normal YELLOW [facility] Comment on above: Performed By: #### U AMIC ####[facility] [address]ie[address] [place] [phone]. Airam Deuce Crystals LM Nom (Urine sed) NONE SEEN Normal NONE SEEN [facility] Comment on above: Performed By: #### U AMIC ####[facility] Fgybnpblpg260[address] [place], [place] [address]Dr. Selenaneil Tripathi Epithelial cells LM Ql (Urine sed) RARE Normal NONE SEEN /RARE [facility] Comment on above: Performed By: #### U AMIC ####[facility] Ydktwtfqai2355[address] [place], [place] [address]Dr. Airam Tripathi Glucose Ql (U) Negative Normal NEGATIVE [facility] Comment on above: Performed By: #### U AMIC ####[facility] Fizdhyjccj2376[address] [place], [place] [address]Dr. Airam Tripathi Hemoglobin Ql (U) Negative Normal NEGATIVE [facility] Comment on above: Performed By: #### U AMIC ####[facility] Nruqljntjz6908[address] [place], [place] [address]Dr. Airam Tripathi HYALINE CAST RARE Normal [facility] Comment on above: Performed By: #### U AMIC ####[facility] Xfyaknupjf0977[address] [place], [place] [address]Dr. Airam Tripathi Ketones Ql (U) TRACE Abnormal NEGATIVE [facility] Comment on above: Performed By: #### U AMIC ####[facility] Tciqkkkpkd5795[address] [place], [place] [address]Dr. Airam Tripathi LEUKOCYTES Negative Normal NEGATIVE [facility] Comment on above: Performed By: #### U AMIC ####[facility] S[address]qaawtrd3[address] [place] [address]Dr. Airam Tripathi MUCOUS NONE SEEN Normal NONE SEEN [facility] Comment on above: Performed By: #### U AMIC ####[facility] Cgwmfavykq5934 [place] [address]Dr. Airma Tripathi Nitrite Ql (U) Negative Normal NEGATIVE [facility] Comment on above: Performed By: #### U AMIC ####[facility] Bnbovtvtsg5617[address] [place], [place] [address]Dr. Airam Tripathi pH (U) 5.0 [pH] Normal 5-9 [facility] Comment on above: Performed By: #### U AMIC ####[facility] Nbrqstgpxs3886[address] [place], [place] [address]Dr. Airam Tripathi RBC 0-2 Normal 0-2 [facility] Comment on above: Performed By: #### U AMIC ####[facility] Idxmadvely5696[address] [place], [place] [address]Dr. Airam Tripathi SPEC GRAVITY 1.015 Normal 1.005-<=1. 025 [facility] Comment on above: Performed By: #### U AMIC ####[facility] Zorxcvmeil837[address] [place], [place] [address]Dr. Airam Tripathi UA PROTEIN Negative Normal NEGATIVE/ TRACE [facility] Comment on above: Performed By: #### U AMIC ####[facility] Ommacrikjh7980[address] [place], [place] [address]Dr. Airam Tripathi Urobilinogen Qn (U) 0.2 {Ligia'U}/dL Normal 0.2 - 1. 0 [facility] Comment on above: Performed By: #### U AMIC ####[facility] Fvrwlagibv034[address] [place], [place] [address]Dr. Airam Tripathi WBC NONE SEEN Normal NONE SEEN [facility] Comment on above: Performed By: #### U AMIC ####[facility] Qdcjtvdzyb8613[address] [place], [place] [address]Dr. Airam Tripathi CBC AUTO DIFFon 10-04-2022 BASO # 0.0 103/ul Normal 0.0-0.1 [facility] Comment on above: Performed By: #### C BC ####[facility] Tlzlixtzon9639[address] [place], [place] [address]Dr. Airam Tripathi Basophils/100 WBC (Bld) 0.3 % Normal 0.2-2.0 [facility] Comment on above: Performed By: #### C BC ####[facility] Ayhkxexrxq067[address] [place], [place] [address]Dr. Airam Tripathi EO # 0.2 103/ul Normal 0.0-0.7 [facility] Comment on above: Performed By: #### C BC ####[facility] Ixbpfrtqcb7474[address] [place], [place] [address]Dr. Airam Tripathi Eosinophils/100 WBC (Bld) 3.2 % Normal 0.9-7.0 [facility] Comment on above: Performed By: #### C BC ####[facility] Irlwpdtwwo6879[address] [place], [place] [address]Dr. Airam Tripathi Erythrocyte distribution width (RBC) [Ratio] 15.1 % Critically high 11.0-15.0 [facility] Comment on above: Performed By: #### C BC ####[facility] Pgtlqunvdh826[address] [place], [place] [address]Dr. Airam Tripathi Hematocrit (Bld) [Volume fraction] 27.6 % Critically low 36.0-48.0 [facility] Comment on above: Performed By: #### C BC ####[facility] Wjhvtporhh596[address] [place], [place] [address]Dr. Airam Tripathi Hemoglobin (Bld) [Mass/Vol] 8.7 g/dL Critically low 12.0-16.0 [facility] Comment on above: Performed By: #### C BC ####[facility] Kvxrcjhnxs3313[address] [place], [place] [address]Dr. Airam Tripathi IG # 0.03 10e3/ul Normal 0.00-0.03 [facility] Comment on above: Performed By: #### C BC ####[facility] Uadbnnhxqb2410[address] [place], [place] [address]Dr. Airam Tripathi IG % 0.4 % Normal 0.0-0.5 [facility] Comment on above: Performed By: #### C BC ####[facility] [address]lzd[address] [place] [address]DrKianna Airam Deuce LYMPH # 1.2 103/ul Normal 1.2-3.8 [facility] Comment on above: Performed By: #### C BC ####[facility] Tsttylojcp5466 [place] [address]DrKianna Airam Deuce Lymphocytes/100 WBC (Bld) 16.4 % Critically low 20.5-60.0 [facility] Comment on above: Performed By: #### C BC ####[facility] Yxtcqimqik808[address] [place], [place] [address]DrKianna Selenaneil Tripathi MANUAL DIFF REQ NO Normal [facility] Comment on above: Performed By: #### C BC ####[facility] Rhyybmzhuw1034[address] [place], [place] [address]DrKianna Airam Deuce MCH (RBC) [Entitic mass] 28.5 pg Normal 26.7-34.0 [facility] Comment on above: Performed By: #### C BC ####[facility] Sxexeqawtr9535[address] [place], [place] [address]DrKianna Airam Deuce MCHC (RBC) [Mass/Vol] 31.5 g/dL Normal 29.9-35.2 [facility] Comment on above: Performed By: #### C BC ####[facility] Gsukjepgex448[address] [place], [place] [address]DrKianna Selenaneil Tripathi MCV (RBC) [Entitic vol] 90.5 fL Normal 81.0-99.0 [facility] Comment on above: Performed By: #### C BC ####[facility] Jglbrhcprr4258[address] [place], [place] [address]DrKianna Tripathi MONO # 0.5 103/ul Normal 0.3-0.8 [facility] Comment on above: Performed By: #### C BC ####[facility] Onekbmafsj[address] [place], [place] [id number] Tripathi Monocytes/100 WBC (Bld) 7.3 % Normal 1.7-12.0 [facility] Comment on above: Performed By: #### C BC ####[facility] Yv[address]fgsnmg5[address] [place] [address]DrKianna Waltersneil Tripathi NEUT # 5.4 103/ul Normal 1.4-6.5 [facility] Comment on above: Performed By: #### C BC ####[facility] Tjjicxlday11[address] [place] [address]DrKianna Tripathi Neutrophils/100 WBC (Bld) 72.4 % Normal 43.0-75.0 [facility] Comment on above: Performed By: #### C BC ####[facility] Ahcmdrhmhh1221 [place] [address]DrKianna Tripathi Platelet mean volume (Bld) [Entitic vol] 9.1 fL Critically low 9.5-13.5 [facility] Comment on above: Performed By: #### C BC ####[facility] Aqsvtsioyo7[address] [place], [place] [address]DrKianna Tripathi PLT 304 103/ul Normal 150-450 [facility] Comment on above: Performed By: #### C BC ####[facility] Afmydpbhet232[address] [place], [place] [address]DrKianna Tripathi RBC 3.05 106/ul Critically low 4.20-5.40 [facility] Comment on above: Performed By: #### C BC ####[facility] Tfnfclggkz9338[address] [place], [place] [address]DrKianna Tripathi WBC 7.4 103/ul Normal 4.0-11.0 [facility] Comment on above: Performed By: #### C BC ####[facility] Rsxqtssghj4411 [place] [address]Dr. Airam Tripathi PROF 14(COMP METB)on 023 Albumin [Mass/Vol] 3.3 g/dL Critically low 3.4-5.0 [facility] Comment on above: Performed By: #### C MP ####[facility] Oypgcwfwme38[address] [place], [place] [address]DrKianna Tripahti Albumin/Globulin [Mass ratio] 0.9 {ratio} Normal [facility] Comment on above: Performed By: #### C MP ####[facility] [address]qqjik4[address] [place] [address]Dr. Airam Deuce ALP [Catalytic activity/Vol] 127 U/L Critically high 46-116 [facility] Comment on above: Performed By: #### C MP ####[facility] Vkpfgenqxd2748[address] [place], [place] [address]Dr. Airam Deuce ALT [Catalytic activity/Vol] 29 U/L Normal 14-59 [facility] Comment on above: Performed By: #### C MP ####[facility] Mecmmxkxek1528[address] [place], [place] [address]Dr. Selenaneil Deuce Anion gap [Moles/Vol] 14.6 mmol/L Normal [facility] Comment on above: Performed By: #### C MP ####[facility] Uubnltdrvi1464[address] [place], [place] [address]Dr. Airam Deuce AST [Catalytic activity/Vol] 28 U/L Normal 15-37 [facility] Comment on above: Performed By: #### C MP ####[facility] Nebgatthll0905[address] [place], [place] [address]Dr. Airam Deuce Bilirubin [Mass/Vol] 0.3 mg/dL Normal 0.2-1.0 [facility] Comment on above: Performed By: #### C MP ####[facility] Bcmuogcorb613[address] [place], [place] [address]Dr. Airam Tripathi Calcium [Mass/Vol] 8.9 mg/dL Normal 8.5-10.1 [facility] Comment on above: Performed By: #### C MP ####[facility] Nhsrjngwcd8107[address] [place], [place] [address]Dr. Airam Tripathi Chloride [Moles/Vol] 99 mmol/L Normal 98-107 [facility] Comment on above: Performed By: #### C MP ####[facility] Gogsvlwzns[address] [place], [place] [id number]. Airam Tripathi CO2 [Moles/Vol] 25.1 mmol/L Normal 21.0-32.0 [facility] Comment on above: Performed By: #### C MP ####[facility] [address]jywcc[address] [place] [address]Dr. Airam Tripathi Creatinine [Mass/Vol] 1.42 mg/dL Critically high 0.55-1.02 [facility] Comment on above: Performed By: #### C MP ####[facility] Z[address]fikpafm8[address] [place] [address]Dr. Airam Deuce EGFR-AF PANAMANIAN 46 mL/min/1.73m2 Critically low >=60 [facility] Comment on above: Performed By: #### C MP ####[facility] [address] [place] [address]Dr. Airam Deuce EGFR-NON AF PANAMANIAN 38 mL/min/1.73m2 Critically low >=60 [facility] Comment on above: Performed By: #### C MP ####[facility] Gawzfeaxbd7[address] [place], [place] [address]Dr. Airam Deuce Globulin (S) [Mass/Vol] 3.6 g/dL Normal [facility] Comment on above: Performed By: #### C MP ####[facility] Rthjaojfei49[address] [place], [place] [address]Dr. Airam Deuce Glucose [Mass/Vol] 79 mg/dL Normal 74-106 [facility] Comment on above: Performed By: #### C MP ####[facility] Zfjxhxyogh06[address] [place], [place] [address]Dr. Selenaneil Tripathi Potassium [Moles/Vol] 5.7 mmol/L Critically high 3.5-5.1 [facility] Comment on above: Performed By: #### C MP ####[facility] Qqqcotlsbq1237[address] [place], [place] [address]Dr. Selenaneil Tripathi Protein [Mass/Vol] 6.9 g/dL Normal 6.4-8.2 [facility] Comment on above: Performed By: #### C MP ####[facility] Lqmzhzctdx3[address] [place], [place] [address]Dr. Airam Tripathi Sodium [Moles/Vol] 133 mmol/L Critically low 136-145 e [facility] Comment on above: Performed By: #### C MP ####[facility] Ampinzamxh2276[address] [place], [place] [address]Dr. Selenaneil Deuce Urea nitrogen [Mass/Vol] 35.0 mg/dL Critically high 7.0-18.0 [facility] Comment on above: Performed By: #### C MP ####[facility] Gzrsnfjfqp4[address] [place], [place] [address]Dr. Airam Tripathi Urea nitrogen/Creatinine [Mass ratio] 24.6 mg/mg Normal [facility] Comment on above: Performed By: #### C MP ####[facility] Rqiirizbah7[address] [place], [place] [address]Dr. Airam Tripathi OSMOLALITYon 10-02-2022 Osmolality [Osmolality] 277 mosm/kg Normal 275-295 [facility] Comment on above: Performed By: #### O SMO ####[facility] Gnxlkyvafu[address] [place], [place] [address]Dr. Selenaneil Deuce CBC AUTO DIFFon 09-29-2022 BASO # 0.0 103/ul Normal 0.0-0.1 [facility] Comment on above: Performed By: #### C BC ####[facility] Wfkqnudadh0736[address] [place], [place] [address]Dr. Airam Tripathi Basophils/100 WBC (Bld) 0.5 % Normal 0.2-2.0 [facility] Comment on above: Performed By: #### C BC ####[facility] Vhhjyrcwpl164[address] [place], [place] [address]Dr. Airam Tripathi EO # 0.2 103/ul Normal 0.0-0.7 [facility] Comment on above: Performed By: #### C BC ####[facility] Vjbzlotfsc7765[address] [place], [place] [address]Dr. Airam Tripathi Eosinophils/100 WBC (Bld) 3.2 % Normal 0.9-7.0 [facility] Comment on above: Performed By: #### C BC ####[facility] Vsajutesjj050[address] [place], [place] [address]Dr. Airam Tripathi Erythrocyte distribution width (RBC) [Ratio] 15.1 % Critically high 11.0-15.0 [facility] Comment on above: Performed By: #### C BC ####[facility] [address]uc[address] [place] [address]Dr. Airam Tripathi Hematocrit (Bld) [Volume fraction] 26.2 % Critically low 36.0-48.0 [facility] Comment on above: Performed By: #### C BC ####[facility] Ruxzbzjrsm4337[address] [place], [place] [address]Dr. Airam Tripathi Hemoglobin (Bld) [Mass/Vol] 8.1 g/dL Critically low 12.0-16.0 [facility] Comment on above: Performed By: #### C BC ####[facility] Yydxbgghnu1022[address] [place], [place] [address]Dr. Airam Tripathi IG # 0.02 10e3/ul Normal 0.00-0.03 [facility] Comment on above: Performed By: #### C BC ####[facility] Adlgnnihqw79[address] [place], [place] [address]Dr. Airam Tripathi IG % 0.4 % Normal 0.0-0.5 [facility] Comment on above: Performed By: #### C BC ####[facility] Whjgwkuhlb9689[address] [place], [place] [address]DrKianna Airam Tripathi LYMPH # 1.3 103/ul Normal 1.2-3.8 [facility] Comment on above: Performed By: #### C BC ####[facility] Fskaofguxl7315[address] [place], [place] [address]DrKianna Airam Tripathi Lymphocytes/100 WBC (Bld) 22.6 % Normal 20.5-60.0 [facility] Comment on above: Performed By: #### C BC ####[facility] Bxpsccihjp67[address] [place], [place] [address]DrKianna Airam Deuce MANUAL DIFF REQ NO Normal [facility] Comment on above: Performed By: #### C BC ####[facility] Dtrjwogqtq9915[address] [place], [place] [address]DrKianna Airam Deuce MCH (RBC) [Entitic mass] 28.0 pg Normal 26.7-34.0 [facility] Comment on above: Performed By: #### C BC ####[facility] [address]qwxkb[address] [place] [address]DrKianna Tripathi MCHC (RBC) [Mass/Vol] 30.9 g/dL Normal 29.9-35.2 [facility] Comment on above: Performed By: #### C BC ####[facility] Tjetrbkpxa1299[address] [place], [place] [address]DrKianna Tripathi MCV (RBC) [Entitic vol] 90.7 fL Normal 81.0-99.0 [facility] Comment on above: Performed By: #### C BC ####[facility] Vamornyztx6120[address] [place], [place] [address]DrKianna Tripathi MONO # 0.5 103/ul Normal 0.3-0.8 [facility] Comment on above: Performed By: #### C BC ####[facility] Gjpfvshreb256[address] [place], [place] [address]DrKianna Tripathi Monocytes/100 WBC (Bld) 9.6 % Normal 1.7-12.0 [facility] Comment on above: Performed By: #### C BC ####[facility] Iemdbyxyik486[address] [place], [place] [address]DrKianna Tripathi NEUT # 3.6 103/ul Normal 1.4-6.5 [facility] Comment on above: Performed By: #### C BC ####[facility] Gccevqlxla6[address] [place], [place] [address]DrKianna Tripathi Neutrophils/100 WBC (Bld) 63.7 % Normal 43.0-75.0 [facility] Comment on above: Performed By: #### C BC ####[facility] Bhqztaewhw5787[address] [place], [place] [address]DrKianna Tripathi Platelet mean volume (Bld) [Entitic vol] 9.4 fL Critically low 9.5-13.5 [facility] Comment on above: Performed By: #### C BC ####[facility] Nakzuwysru4569[address] [place], [place] [address]Dr. Airam Tripathi PLT 258 103/ul Normal 150-450 [facility] Comment on above: Performed By: #### C BC ####[facility] Nutcasersr[address] [place] [address]Dr. Selenaneil Deuce RBC 2.89 106/ul Critically low 4.20-5.40 [facility] Comment on above: Performed By: #### C BC ####[facility] Px[address]fysmsrr[address] [place] [address]Dr. Airam Tripathi WBC 5.6 103/ul Normal 4.0-11.0 [facility] Comment on above: Performed By: #### C BC ####[facility] Xhitirrqic15[address] [place] [address]DrKianna Tripathi PROF 14(COMP METB)on 023 Albumin [Mass/Vol] 3.0 g/dL Critically low 3.4-5.0 [facility] Comment on above: Performed By: #### C MP ####[facility] Ctjjdslpko[address] [place], [place] [address]Dr. Airam Tripathi Albumin/Globulin [Mass ratio] 1.1 {ratio} Normal [facility] Comment on above: Performed By: #### C MP ####[facility] Hrunliumtf718433 [address] [place], [place] [address]Dr. Airam Tripathi ALP [Catalytic activity/Vol] 102 U/L Normal 46-116 [facility] Comment on above: Performed By: #### C MP ####[facility] Afhrsoglzj[address] [place] [address]Dr. Airam Tripathi ALT [Catalytic activity/Vol] 20 U/L Normal 14-59 [facility] Comment on above: Performed By: #### C MP ####[facility] Wltvhpvabe[address] [place], [place] [address]Dr. Airam Tripathi Anion gap [Moles/Vol] 11.1 mmol/L Normal [facility] Comment on above: Performed By: #### C MP ####[facility] Bstjsvcpci8813[address] [place], [place] [address]Dr. Airam Tripathi AST [Catalytic activity/Vol] 18 U/L Normal 15-37 [facility] Comment on above: Performed By: #### C MP ####[facility] [address]afbpechw[address] [place] [address]Dr. Airam Deuce Bilirubin [Mass/Vol] 0.2 mg/dL Normal 0.2-1.0 [facility] Comment on above: Performed By: #### C MP ####[facility] Xlzviyjutm3079[address] [place], [place] [address]Dr. Airam Deuce Calcium [Mass/Vol] 8.0 mg/dL Critically low 8.5-10.1 Th [facility] Comment on above: Performed By: #### C MP ####[facility] Yezndstior1954[address] [place], [place] [address]Dr. Selenaneil Tripathi Chloride [Moles/Vol] 100 mmol/L Normal 98-107 [facility] Comment on above: Performed By: #### C MP ####[facility] Dlhspugirw846[address] [place], [place] [address]Dr. Airam Deuce CO2 [Moles/Vol] 24.8 mmol/L Normal 21.0-32.0 [facility] Comment on above: Performed By: #### C MP ####[facility] Rouqrignwc7211[address] [place], [place] [address]Dr. Airam Deuce Creatinine [Mass/Vol] 1.11 mg/dL Critically high 0.55-1.02 [facility] Comment on above: Performed By: #### C MP ####[facility] Sungnpdwit9[address] [place], [place] [address]Dr. Selenaneil Deuce EGFR-AF PANAMANIAN >60 Normal >=60 [facility] Comment on above: Performed By: #### C MP ####[facility] Hrfedsigvb017[address] [place], [place] [address]Dr. Airam Tripathi EGFR-NON AF PANAMANIAN 50 mL/min/1.73m2 Critically low >=60 [facility] Comment on above: Performed By: #### C MP ####[facility] Inycjdeiot9176[address] [place], [place] [address]Dr. Airam Tripathi Globulin (S) [Mass/Vol] 2.8 g/dL Normal [facility] Comment on above: Performed By: #### C MP ####[facility] O[address]ttsmtgll[address] [place] [address]Dr. Airam Tripathi Glucose [Mass/Vol] 77 mg/dL Normal 74-106 [facility] Comment on above: Performed By: #### C MP ####[facility] Orldcjbalo039[address] [place] [address]Dr. Airam Tripathi Potassium [Moles/Vol] 4.9 mmol/L Normal 3.5-5.1 [facility] Comment on above: Performed By: #### C MP ####[facility] Luzienreic[address] [place] [address]Dr. Airam Tripathi Protein [Mass/Vol] 5.8 g/dL Critically low 6.4-8.2 [facility] Comment on above: Performed By: #### C MP ####[facility] Yiwrwzegln3497[address] [place], [place] [address]Dr. Airam Tripathi Sodium [Moles/Vol] 131 mmol/L Critically low 136-145 [facility] Comment on above: Performed By: #### C MP ####[facility] Fdhtmplsfr659[address] [place], [place] [address]Dr. Airam Tripathi Urea nitrogen [Mass/Vol] 33.0 mg/dL Critically high 7.0-18.0 [facility] Comment on above: Performed By: #### C MP ####[facility] Hhfuemkigc8[address] [place], [place] [address]Dr. Airam Tripathi Urea nitrogen/Creatinine [Mass ratio] 29.7 mg/mg Normal [facility] Comment on above: Performed By: #### C MP ####[facility] Uksmndycsn2610[address] [place], [place] [address]Dr. Airam Deuce ECHOCARDIO M/2D COMPLETEon 0 09-21-2022 ECHOCARDIO M/2D COMPLETE Normal [facility] OSMOLALITYon 09-21-2022 Osmolality [Osmolality] 282 mosm/kg Normal 275-295 [facility] Comment on above: Performed By: #### O SMO ####[facility] [address]vasn[address] [place] [address]Dr. Airam Tripathi PHOSPHOLIPIDSon 09-21-2022 Phospholipids, Serum 249 mg/dL Normal 151-288 [facility] Comment on above: Performed By: #### P HOSLIP ####[facility] Worcmewsry0432[address] [place], [place] [address]Dr. Airam Tripathi CBC AUTO DIFFon 09-20-2022 BASO # 0.0 103/ul Normal 0.0-0.1 [facility] Comment on above: Performed By: #### C BC ####[facility] Onkqqziype7538[address] [place], [place] [address]Dr. Airam Deuce Basophils/100 WBC (Bld) 0.5 % Normal 0.2-2.0 [facility] Comment on above: Performed By: #### C BC ####[facility] Issmgfuwwr4867[address] [place], [place] [address]Dr. Airam Deuce EO # 0.2 103/ul Normal 0.0-0.7 [facility] Comment on above: Performed By: #### C BC ####[facility] Bonncpalmk9811[address] [place], [place] [address]Dr. Airam Deuce Eosinophils/100 WBC (Bld) 2.9 % Normal 0.9-7.0 [facility] Comment on above: Performed By: #### C BC ####[facility] Omgosmrgta165[address] [place], [place] [address]Dr. Selenaneil Tripathi Erythrocyte distribution width (RBC) [Ratio] 15.4 % Critically high 11.0-15.0 [facility] Comment on above: Performed By: #### C BC ####[facility] Gadeecwqbl4417[address] [place], [place] [address]Dr. Airam Tripathi Hematocrit (Bld) [Volume fraction] 26.3 % Critically low 36.0-48.0 [facility] Comment on above: Performed By: #### C BC ####[facility] Txsgujuopz086[address] [place], [place] [address]Dr. Airam Tripathi Hemoglobin (Bld) [Mass/Vol] 8.2 g/dL Critically low 12.0-16.0 [facility] Comment on above: Performed By: #### C BC ####[facility] [address]zzm[address] [place] [id number]. Airam Tripathi IG # 0.03 10e3/ul Normal 0.00-0.03 [facility] Comment on above: Performed By: #### C BC ####[facility] L[address]ffywiti[address] [place] [address]Dr. Airam Tripathi IG % 0.4 % Normal 0.0-0.5 [facility] Comment on above: Performed By: #### C BC ####[facility] Tvezmjijqb[address] [place] [address]Dr. Airam Tripathi LYMPH # 1.9 103/ul Normal 1.2-3.8 [facility] Comment on above: Performed By: #### C BC ####[facility] Mrwbtxksnl488[address] [place], [place] [address]Dr. Airam Tripathi Lymphocytes/100 WBC (Bld) 23.0 % Normal 20.5-60.0 [facility] Comment on above: Performed By: #### C BC ####[facility] Hiyymwhsgs[address] [place] [address]Dr. Airam Tripathi MANUAL DIFF REQ NO Normal [facility] Comment on above: Performed By: #### C BC ####[facility] Toapqdqsmm419[address] [place], [place] [address]Dr. Airam Tripathi MCH (RBC) [Entitic mass] 28.5 pg Normal 26.7-34.0 [facility] Comment on above: Performed By: #### C BC ####[facility] Sfnowpkwyh[address] [place], [place] [address]Dr. Airam Tripathi MCHC (RBC) [Mass/Vol] 31.2 g/dL Normal 29.9-35.2 [facility] Comment on above: Performed By: #### C BC ####[facility] Zvyfslkgsn822[address] [place], [place] [address]Dr. Airam Tripathi MCV (RBC) [Entitic vol] 91.3 fL Normal 81.0-99.0 [facility] Comment on above: Performed By: #### C BC ####[facility] [address]beik[address] [place] [id number]. Airam Tripathi MONO # 0.7 103/ul Normal 0.3-0.8 [facility] Comment on above: Performed By: #### C BC ####[facility] Jcpympevmq99[address] [place] [id number]. Airam Tripathi Monocytes/100 WBC (Bld) 7.7 % Normal 1.7-12.0 [facility] Comment on above: Performed By: #### C BC ####[facility] Ctothdyrlo[address] [place] [id number]. Airam Tripathi NEUT # 5.5 103/ul Normal 1.4-6.5 [facility] Comment on above: Performed By: #### C BC ####[facility] Vcqpsirngm3484[address] [place], [place] [address]Dr. Airam Tripathi Neutrophils/100 WBC (Bld) 65.5 % Normal 43.0-75.0 [facility] Comment on above: Performed By: #### C BC ####[facility] Rbuhbfkuqg48[address] [place] [address]Dr. Airam Tripathi Platelet mean volume (Bld) [Entitic vol] 9.1 fL Critically low 9.5-13.5 [facility] Comment on above: Performed By: #### C BC ####[facility] Qmjhfqpsgi77[address] [place] [id number]. Airam Tripathi PLT 258 103/ul Normal 150-450 [facility] Comment on above: Performed By: #### C BC ####[facility] Aojmt[address]ycz[address] [place], [place] [id number]. Airam Tripathi RBC 2.88 106/ul Critically low 4.20-5.40 [facility] Comment on above: Performed By: #### C BC ####[facility] Ipmimxqsey[address] [place] [address]Dr. Airam Tripathi WBC 8.4 103/ul Normal 4.0-11.0 [facility] Comment on above: Performed By: #### C BC ####[facility] Pghiwtzefv[address] [place] [address]Dr. Airam Deuce PROF CHEM 8 (BAS METB)on Anion gap [Moles/Vol] 10.3 mmol/L Normal [facility] Comment on above: Performed By: #### B MP ####[facility] Z[address]ascwwxn[address] [place] [address]Dr. Airam Tripathi Calcium [Mass/Vol] 7.9 mg/dL Critically low 8.5-10.1 [facility] Comment on above: Performed By: #### B MP ####[facility] Hcidyjyzdp78[address] [place], [place] [address]Dr. Airam Tripathi Chloride [Moles/Vol] 98 mmol/L Normal 98-107 [facility] Comment on above: Performed By: #### B MP ####[facility] Obczbdasec1760[address] [place], [place] [address]Dr. Airam Tripathi CO2 [Moles/Vol] 27.5 mmol/L Normal 21.0-32.0 [facility] Comment on above: Performed By: #### B MP ####[facility] Ppedyfetlh[address] [place], [place] [address]Dr. Airam Tripathi Creatinine [Mass/Vol] 1.44 mg/dL Critically high 0.55-1.02 [facility] Comment on above: Performed By: #### B MP ####[facility] Oncbhvlwly9[address] [place], [place] [address]Dr. Airam Tripathi EGFR-AF PANAMANIAN 45 mL/min/1.73m2 Critically low >=60 [facility] Comment on above: Performed By: #### B MP ####[facility] Weoepwtzsl553[address] [place], [place] [address]Dr. Airam Tripathi EGFR-NON AF PANAMANIAN 37 mL/min/1.73m2 Critically low >=60 [facility] Comment on above: Performed By: #### B MP ####[facility] Otolhvrtcu518[address] [place], [place] [address]Dr. Airam Tripathi Glucose [Mass/Vol] 91 mg/dL Normal 74-106 [facility] Comment on above: Performed By: #### B MP ####[facility] Zxuuxsautl6[address] [place] [address]Dr. Airam Tripathi Potassium [Moles/Vol] 4.8 mmol/L Normal 3.5-5.1 [facility] Comment on above: Performed By: #### B MP ####[facility] Dvanedtrrx8[address] [place] [address]Dr. Airam Tripathi Sodium [Moles/Vol] 131 mmol/L Critically low 136-145 Th [facility] Comment on above: Performed By: #### B MP ####[facility] Hzetglauph1870 [place] [address]Dr. Airam Tripathi Urea nitrogen [Mass/Vol] 40.0 mg/dL Critically high 7.0-18.0 [facility] Comment on above: Performed By: #### B MP ####[facility] Xlojxhbbsu8469[address] [place], [place] [address]Dr. Selenaneil Tripathi Urea nitrogen/Creatinine [Mass ratio] 27.8 mg/mg Normal [facility] Comment on above: Performed By: #### B MP ####[facility] Hsznqenxjq1967[address] [place], [place] [address]Dr. Airam Tripathi Anion gap [Moles/Vol] 10.6 mmol/L Normal [facility] Comment on above: Performed By: #### B MP ####[facility] Vmzpdkgsjb828[address] [place], [place] [address]Dr. Selenaneil Tripathi Calcium [Mass/Vol] 7.9 mg/dL Critically low 8.5-10.1 [facility] Comment on above: Performed By: #### B MP ####[facility] Gdkamshtbi1496[address] [place], [place] [address]Dr. Selenaneil Tripathi Chloride [Moles/Vol] 101 mmol/L Normal 98-107 [facility] Comment on above: Performed By: #### B MP ####[facility] Dfvneorupt506[address] [place], [place] [address]Dr. Airam Tripathi CO2 [Moles/Vol] 27.4 mmol/L Normal 21.0-32.0 [facility] Comment on above: Performed By: #### B MP ####[facility] Ajkvxomctj08[address] [place] [address]Dr. Airam Tripathi Creatinine [Mass/Vol] 1.35 mg/dL Critically high 0.55-1.02 [facility] Comment on above: Performed By: #### B MP ####[facility] Anejwbfady[address] [place] [address]Dr. Airam Tripathi EGFR-AF PANAMANIAN 48 mL/min/1.73m2 Critically low >=60 [facility] Comment on above: Performed By: #### B MP ####[facility] Ycsopilxoc07[address] [place], [place] [address]Dr. Airam Tripathi EGFR-NON AF PANAMANIAN 40 mL/min/1.73m2 Critically low >=60 [facility] Comment on above: Performed By: #### B MP ####[facility] Griypnjfjz714[address] [place], [place] [address]Dr. Airam Tripathi Glucose [Mass/Vol] 114 mg/dL Critically high 74-106 [facility] Comment on above: Performed By: #### B MP ####[facility] Uathbwluxq8295[address] [place], [place] [address]Dr. Airam Deuce Potassium [Moles/Vol] 5.0 mmol/L Normal 3.5-5.1 [facility] Comment on above: Performed By: #### B MP ####[facility] Mqkvpgizev085[address] [place], [place] [address]Dr. Selenaneil Deuce Sodium [Moles/Vol] 134 mmol/L Critically low 136-145 Th [facility] Comment on above: Performed By: #### B MP ####[facility] Ovhilwsduk033[address] [place], [place] [address]Dr. Airam Tripathi Urea nitrogen [Mass/Vol] 40.0 mg/dL Critically high 7.0-18.0 [facility] Comment on above: Performed By: #### B MP ####[facility] Ejtbhohdsg055[address] [place], [place] [address]Dr. Airam Tripathi Urea nitrogen/Creatinine [Mass ratio] 29.6 mg/mg Normal [facility] Comment on above: Performed By: #### B MP ####[facility] Orkquwaoym[address] [place], [place] [address]Dr. Airam Tripathi PTH INTACTon 09-20-2022 PTH, Intact 104 pg/mL Critically high 15-65 [facility] Comment on above: Performed By: #### P THINT ####[facility] [address]qfqptweqg[address] [place], [place] [address]Dr. Airam Tripathi BNPon 09-19-2022 Natriuretic peptide B (Bld) [Mass/Vol] 1272.0 pg/mL Critically high <=900.0 [facility] Comment on above: Performed By: #### H STROPN, TSH, K, BNP ####[facility] Fkibdtgznq64[address] [place], [place] [address]Dr. Airam Tripathi CBC AUTO DIFFon 09-19-2022 BASO # 0.0 103/ul Normal 0.0-0.1 [facility] Comment on above: Performed By: #### C BC ####[facility] Pkikpxmdll68[address] [place], [place] [address]Dr. Airam Deuce Basophils/100 WBC (Bld) 0.5 % Normal 0.2-2.0 [facility] Comment on above: Performed By: #### C BC ####[facility] Udlqwvvoku12[address] [place], [place] [address]Dr. Airam Tripathi EO # 0.2 103/ul Normal 0.0-0.7 [facility] Comment on above: Performed By: #### C BC ####[facility] Zbqdkysbtg[address] [place], [place] [address]Dr. Airam Tripathi Eosinophils/100 WBC (Bld) 2.6 % Normal 0.9-7.0 [facility] Comment on above: Performed By: #### C BC ####[facility] Uxigeubewf[address] [place], [place] [address]Dr. Airam Tripathi Erythrocyte distribution width (RBC) [Ratio] 15.5 % Critically high 11.0-15.0 [facility] Comment on above: Performed By: #### C BC ####[facility] [address]ukzpapfjw[address] [place], [place] [address]DrKianna Tripathi Hematocrit (Bld) [Volume fraction] 31.1 % Critically low 36.0-48.0 [facility] Comment on above: Performed By: #### C BC ####[facility] [address]xv[address] [place] [address]DrKianna Tripathi Hemoglobin (Bld) [Mass/Vol] 9.6 g/dL Critically low 12.0-16.0 [facility] Comment on above: Performed By: #### C BC ####[facility] V[address]ftvncfry[address] [place] [address]DrKianna Tripathi IG # 0.04 10e3/ul Critically high 0.00-0.03 [facility] Comment on above: Performed By: #### C BC ####[facility] Raofhhssgl[address] [place] [address]DrKianna Tripathi IG % 0.5 % Normal 0.0-0.5 [facility] Comment on above: Performed By: #### C BC ####[facility] Amxveyddwp[address] [place] [address]DrKianna Tripathi LYMPH # 1.0 103/ul Critically low 1.2-3.8 [facility] Comment on above: Performed By: #### C BC ####[facility] Orwtllczph[address] [place] [address]DrKianna Tripathi Lymphocytes/100 WBC (Bld) 12.0 % Critically low 20.5-60.0 [facility] Comment on above: Performed By: #### C BC ####[facility] [address]jhgqwfj[address] [place] [address]DrKianna Tripathi MANUAL DIFF REQ NO Normal [facility] Comment on above: Performed By: #### C BC ####[facility] Z[address]wqogknto[address] [place], [place] [address]DrKianna Tripathi MCH (RBC) [Entitic mass] 28.2 pg Normal 26.7-34.0 [facility] Comment on above: Performed By: #### C BC ####[facility] Eynpocyucc4[address] [place], [place] [address]DrKianna Tripathi MCHC (RBC) [Mass/Vol] 30.9 g/dL Normal 29.9-35.2 [facility] Comment on above: Performed By: #### C BC ####[facility] [address]brvyovs[address] [place] [id number]. Airam Tripathi MCV (RBC) [Entitic vol] 91.5 fL Normal 81.0-99.0 [facility] Comment on above: Performed By: #### C BC ####[facility] Wbznlzciou44[address] [place] [id number]. Airam Tripathi MONO # 0.5 103/ul Normal 0.3-0.8 [facility] Comment on above: Performed By: #### C BC ####[facility] Oxgriwmasj450[address] [place] [address]Dr. Airam Tripathi Monocytes/100 WBC (Bld) 6.4 % Normal 1.7-12.0 [facility] Comment on above: Performed By: #### C BC ####[facility] Sydfomhgop[address] [place] [address]Dr. Airam Tripathi NEUT # 6.4 103/ul Normal 1.4-6.5 [facility] Comment on above: Performed By: #### C BC ####[facility] Ensijpurhd9[address] [place] [address]Dr. Airam Tripathi Neutrophils/100 WBC (Bld) 78.0 % Critically high 43.0-75.0 [facility] Comment on above: Performed By: #### C BC ####[facility] Yeoqdehxoy[address] [place] [address]Dr. Airam Tripathi Platelet mean volume (Bld) [Entitic vol] 9.1 fL Critically low 9.5-13.5 [facility] Comment on above: Performed By: #### C BC ####[facility] Uidmgcumdw0282 [place] [id number]. Airam Tripathi PLT 318 103/ul Normal 150-450 [facility] Comment on above: Performed By: #### C BC ####[facility] Fwradqsxbn6665 [place] [address]Dr. Airam Tripathi RBC 3.40 106/ul Critically low 4.20-5.40 [facility] Comment on above: Performed By: #### C BC ####[facility] Bujjusytmk17[address] [place] [id number]. Airam Tripathi WBC 8.2 103/ul Normal 4.0-11.0 [facility] Comment on above: Performed By: #### C BC ####[facility] Cwkxdfwjor2492 [place] [address]Dr. Airam Tripathi Covid-19 PCR (CVDTBH)on 08-25 SARS-CoV-2 (COVID-19) RNA MIKE+probe Ql (Unsp spec) Not detected Normal NOT DETECTED [facility] Comment on above: Result Comment: When diagnostic [...] test is supported by the [employer] and Human Service's declaration that [...] Performed By: #### C VDTBH ####[facility] Jrlofwxqtw488[address] [place] [address]Dr. Airam Tripathi LACTATE/LACTIC ACIDon 2022 Lactate [Moles/Vol] 0.4 mmol/L Normal 0.4-2.0 [facility] Comment on above: Performed By: #### L ACT ####[facility] Ulywmadtmv68[address] [place] [address]Dr. Airam Tripathi POTASSIUMon 09-19-2022 Potassium [Moles/Vol] 6.3 mmol/L Critically high 3.5-5.1 [facility] Comment on above: Performed By: #### H STROPN, TSH, K, BNP ####[facility] [address]uk[address]lr[address] [place] [address]Dr. Airam Tripathi PROF 14(COMP METB)on 023 Albumin [Mass/Vol] 3.5 g/dL Normal 3.4-5.0 [facility] Comment on above: Performed By: #### C MP ####[facility] Z[address]uwrtdgz65[address] [place] [address]Dr. Airam Tripathi Albumin/Globulin [Mass ratio] 1.1 {ratio} Normal [facility] Comment on above: Performed By: #### C MP ####[facility] Fkcbeyanzj96[address] [place], [place] [address]Dr. Airam Tripathi ALP [Catalytic activity/Vol] 113 U/L Normal 46-116 [facility] Comment on above: Performed By: #### C MP ####[facility] Ubkiewdfyx31[address] [place], [place] [address]Dr. Airam Tripathi ALT [Catalytic activity/Vol] 26 U/L Normal 14-59 [facility] Comment on above: Performed By: #### C MP ####[facility] Cdxqvpokdj2343 [place] [address]Dr. Airam Tripathi Anion gap [Moles/Vol] 11.5 mmol/L Normal [facility] Comment on above: Performed By: #### C MP ####[facility] Gdivvnnybu9155 [place] [address]Dr. Airam Tripathi AST [Catalytic activity/Vol] 24 U/L Normal 15-37 [facility] Comment on above: Performed By: #### C MP ####[facility] Ghrvvgwapp693[address] [place], [place] [address]Dr. Airam Tripathi Bilirubin [Mass/Vol] 0.3 mg/dL Normal 0.2-1.0 [facility] Comment on above: Performed By: #### C MP ####[facility] Iiowglsdfr3[address] [place], [place] [address]Dr. Airam Tripathi Calcium [Mass/Vol] 8.9 mg/dL Normal 8.5-10.1 [facility] Comment on above: Performed By: #### C MP ####[facility] Gwctmkkhxj57[address] [place], [place] [address]Dr. Airam Tripathi Chloride [Moles/Vol] 103 mmol/L Normal 98-107 [facility] Comment on above: Performed By: #### C MP ####[facility] Enaugjqgaj0[address] [place], [place] [address]Dr. Airam Tripathi CO2 [Moles/Vol] 27.8 mmol/L Normal 21.0-32.0 [facility] Comment on above: Performed By: #### C MP ####[facility] Lxhxipygrj3[address] [place], [place] [address]Dr. Airam Tripathi Creatinine [Mass/Vol] 1.28 mg/dL Critically high 0.55-1.02 [facility] Comment on above: Performed By: #### C MP ####[facility] Mbesutmtto075[address] [place], [place] [address]Dr. Airam Tripathi EGFR-AF PANAMANIAN 52 mL/min/1.73m2 Critically low >=60 [facility] Comment on above: Performed By: #### C MP ####[facility] Xwixditooq[address] [place], [place] [address]Dr. Airam Tripathi EGFR-NON AF PANAMANIAN 43 mL/min/1.73m2 Critically low >=60 [facility] Comment on above: Performed By: #### C MP ####[facility] Almkzvdoki25[address] [place], [place] [address]Dr. Airam Tripathi Globulin (S) [Mass/Vol] 3.2 g/dL Normal [facility] Comment on above: Performed By: #### C MP ####[facility] Awcyvybdgj05[address] [place], [place] [address]Dr. Airam Tripathi Glucose [Mass/Vol] 95 mg/dL Normal 74-106 [facility] Comment on above: Performed By: #### C MP ####[facility] Csmozwpemf59[address] [place], [place] [address]Dr. Airam Tripathi Potassium [Moles/Vol] 6.3 mmol/L Critically high 3.5-5.1 [facility] Comment on above: Performed By: #### C MP ####[facility] F[address]pcvtkzxi3[address] [place] [address]Dr. Airam Tripathi Protein [Mass/Vol] 6.7 g/dL Normal 6.4-8.2 [facility] Comment on above: Performed By: #### C MP ####[facility] [address]hcovghkw[address] [place] [address]Dr. Airam Tripathi Sodium [Moles/Vol] 135 mmol/L Critically low 136-145 [facility] Comment on above: Performed By: #### C MP ####[facility] Iwvksflohk6247 [place] [address]Dr. Airam Tripathi Urea nitrogen [Mass/Vol] 42.0 mg/dL Critically high 7.0-18.0 [facility] Comment on above: Performed By: #### C MP ####[facility] Xnanvrtbrh64[address] [place], [place] [address]Dr. Airam Tripathi Urea nitrogen/Creatinine [Mass ratio] 32.8 mg/mg Normal [facility] Comment on above: Performed By: #### C MP ####[facility] Hlqnicrcdv68[address] [place], [place] [address]Dr. Airam Tripathi TROPONIN, HIGH SENSITIVITYon 09-19-2022 HSTROP 7.1 pg/mL Normal 4.0-51.3 [facility] Comment on above: Result Comment: CUT- OFF POINTS HAVE BEEN ESTABLISHED BASED ON THE FOURTH UNIVERSAL DEFINITIONS OF MYOCARDIALINFARCTION. THE UPPER REFERENCE LIMIT (URL) OF TROPONIN, DEFINED THE 99TH PERCENTILE OFcTnI DISTRIBUTION IN A REFERENCE POPULATION, HAS BEEN CONFIRMED THE DECISION THRESHOLDFOR [place] DIAGNOSIS. Performed By: #### H STROPN, TSH, K, BNP ####[facility] [address]ckwfkpax30[address] [place] [address]Dr. Airam Tripathi TSHon 09-19-2022 TSH 0.028 uIU/mL Critically low 0.358-3.74 0 [facility] Comment on above: Performed By: #### H STROPN, TSH, K, BNP ####[facility] Bcqgnssjdr88[address] [place] [address]Dr. Airam Tripathi UA RANDOMon 09-19-2022 Bilirubin Ql (U) Negative Normal NEGATIVE [facility] Comment on above: Performed By: #### U A ####[facility] Ayfgxbvqvs4[address] [place], [place] [address]Dr. Airam Tripathi Clarity (U) CLEAR Normal CLEAR [facility] Comment on above: Performed By: #### U A ####[facility] Ndljwfmgfo400[address] [place], [place] [address]Dr. Airam Tripathi Color (U) LT. YELLOW Normal YELLOW [facility] Comment on above: Performed By: #### U A ####[facility] Rtloqrduiu08[address] [place], [place] [address]Dr. Airam Tripathi Glucose Ql (U) Negative Normal NEGATIVE [facility] Comment on above: Performed By: #### U A ####[facility] Yxyoxzhqlh836[address] [place], [place] [address]Dr. Airam Tripathi Hemoglobin Ql (U) Negative Normal NEGATIVE [facility] Comment on above: Performed By: #### U A ####[facility] Srqggmhzbm5[address] [place], [place] [address]Dr. Airam Tripathi Ketones Ql (U) Negative Normal NEGATIVE [facility] Comment on above: Performed By: #### U A ####[facility] Syompobroh[address] [place], [place] [address]Dr. Airam Tripathi LEUKOCYTES TRACE Abnormal NEGATIVE [facility] Comment on above: Performed By: #### U A ####[facility] Mbypvmqjbp[address] [place], [place] [address]Dr. Airam Tripathi Nitrite Ql (U) Negative Normal NEGATIVE [facility] Comment on above: Performed By: #### U A ####[facility] Scmsnfmwcg49[address] [place], [place] [address]Dr. Airam Tripathi pH (U) 5.5 [pH] Normal 5-9 [facility] Comment on above: Performed By: #### U A ####[facility] Nzdvnaddxb0945 [place] [address]Dr. Airam Tripathi SPEC GRAVITY 1.010 Normal 1.005-<=1. 025 [facility] Comment on above: Performed By: #### U A ####[facility] Xuipsbyoes30[address] [place], [place] [address]Dr. Airam Tripathi UA PROTEIN Negative Normal NEGATIVE/ TRACE [facility] Comment on above: Performed By: #### U A ####[facility] Vzwntkodse5[address] [place], [place] [address]Dr. Airam Tripathi Urobilinogen Qn (U) 0.2 {Ligia'U}/dL Normal 0.2 - 1. 0 [facility] Comment on above: Performed By: #### U A ####[facility] Oepgfgsqji78[address] [place], [place] [address]Dr. Airam Tripathi URIC ACID SERUMon 09-19-2022 Urate [Mass/Vol] 6.9 mg/dL Critically high 2.6-6.0 [facility] Comment on above: Performed By: #### U TRESSA ####[facility] Gvvyezlrxw897[address] [place], [place] [address]Dr. Airam Tripathi URINE T PROTEIN CREAT RATIOo n 09-19-2022 UR TOTAL PROTEIN <6.0 Normal <=12.0 [facility] Comment on above: Performed By: #### U RTPCR ####[facility] Bfuujusfdc8836[address] [place], [place] [address]Dr. Airam Tripathi URINE CREAT 15.12 mg/dL Critically low 20.00-300. 00 [facility] Comment on above: Performed By: #### U RTPCR ####[facility] Woifulkcax9978[address] [place], [place] [address]Dr. Airam Tripathi VITAMIN D 25 OHon 09-19-2022 VIT D 25-OH 75.9 ng/mL Normal [facility] Comment on above: Performed By: #### V ITAD ####[facility] Krxsuiymxp513[address] [place], [place] [address]Dr. Airam Tripathi VIT D RANGES SEE BELOW Normal [facility] Comment on above: Result Comment: <20 ng/mL Vit D deficient 20 - <30 ng/mL Vit D insufficient 30 - 100 ng/mL Vit D sufficient >100 ng/mL Potential Toxicity Performed By: #### V ITAD ####[facility] Fvqvimvoyo95[address] [place], [place] [address]Dr. Airam Tripathi OSMOLALITYon 09-14-2022 Osmolality [Osmolality] 272 mosm/kg Critically low 275-295 [facility] Comment on above: Performed By: #### O SMO ####[facility] Snowdchnux45[address] [place], [place] [address]Dr. Airam Tripathi CBC AUTO DIFFon 09-12-2022 BASO # 0.0 103/ul Normal 0.0-0.1 [facility] Comment on above: Performed By: #### C BC ####[facility] Tuyqnrullo4[address] [place], [place] [address]Dr. Airam Tripathi Basophils/100 WBC (Bld) 0.5 % Normal 0.2-2.0 [facility] Comment on above: Performed By: #### C BC ####[facility] Tnyfinrrgf29[address] [place], [place] [address]Dr. Airam Tripathi EO # 0.2 103/ul Normal 0.0-0.7 [facility] Comment on above: Performed By: #### C BC ####[facility] Kjgqwxiurn75[address] [place], [place] [address]Dr. Selenaneil Tripathi Eosinophils/100 WBC (Bld) 2.4 % Normal 0.9-7.0 [facility] Comment on above: Performed By: #### C BC ####[facility] Mhechnxtrf313[address] [place], [place] [address]Dr. Airam Tripathi Erythrocyte distribution width (RBC) [Ratio] 14.8 % Normal 11.0-15.0 [facility] Comment on above: Performed By: #### C BC ####[facility] Fummbgvntg[address] [place], [place] [address]Dr. Selenaneil Deuce Hematocrit (Bld) [Volume fraction] 32.6 % Critically low 36.0-48.0 [facility] Comment on above: Performed By: #### C BC ####[facility] [address]yv[address]atsvm8763 [place] [id number]. Airam Tripathi Hemoglobin (Bld) [Mass/Vol] 10.1 g/dL Critically low 12.0-16.0 [facility] Comment on above: Performed By: #### C BC ####[facility] Wbmkticdew1079 [place] [id number]. Airam Tripathi IG # 0.05 10e3/ul Critically high 0.00-0.03 [facility] Comment on above: Performed By: #### C BC ####[facility] Netshgvegy5621 [place] [address]Dr. Airam Tripathi IG % 0.7 % Critically high 0.0-0.5 [facility] Comment on above: Performed By: #### C BC ####[facility] Egciyihuow12[address] [place] [address]Dr. Airam Tripathi LYMPH # 1.9 103/ul Normal 1.2-3.8 [facility] Comment on above: Performed By: #### C BC ####[facility] Yiqbaxynec0799 [place] [address]Dr. Airam Tripathi Lymphocytes/100 WBC (Bld) 24.7 % Normal 20.5-60.0 [facility] Comment on above: Performed By: #### C BC ####[facility] Kiamdasnkd23[address] [place] [address]Dr. Airam Tripathi MANUAL DIFF REQ NO Normal [facility] Comment on above: Performed By: #### C BC ####[facility] Defhgcbtmj4305 [place] [address]Dr. Airam Tripathi MCH (RBC) [Entitic mass] 28.0 pg Normal 26.7-34.0 [facility] Comment on above: Performed By: #### C BC ####[facility] Rvmrmcdtzu8338 [place] [address]Dr. Airam Tripathi MCHC (RBC) [Mass/Vol] 31.0 g/dL Normal 29.9-35.2 [facility] Comment on above: Performed By: #### C BC ####[facility] Npiqlnoiix2503 [place] [id number]. Airam Tripathi MCV (RBC) [Entitic vol] 90.3 fL Normal 81.0-99.0 [facility] Comment on above: Performed By: #### C BC ####[facility] Iltomawujl8423 [place] [id number]. Airam Tripathi MONO # 0.5 103/ul Normal 0.3-0.8 [facility] Comment on above: Performed By: #### C BC ####[facility] Jhrrwwauff0424 [place] [id number]. Airam Tripathi Monocytes/100 WBC (Bld) 6.0 % Normal 1.7-12.0 [facility] Comment on above: Performed By: #### C BC ####[facility] Dzhjqxdxxf6229 [place] [address]Dr. Airam Tripathi NEUT # 5.0 103/ul Normal 1.4-6.5 [facility] Comment on above: Performed By: #### C BC ####[facility] Chqgkzlwhm1699 [place] [id number]. Airam Tripathi Neutrophils/100 WBC (Bld) 65.7 % Normal 43.0-75.0 [facility] Comment on above: Performed By: #### C BC ####[facility] Wdgxmrvhob2601 [place] [id number]. Airam Tripathi Platelet mean volume (Bld) [Entitic vol] 9.5 fL Normal 9.5-13.5 [facility] Comment on above: Performed By: #### C BC ####[facility] Nhhjrvqrli2764 [place] [phone]. Airam Deuce PLT 307 103/ul Normal 150-450 [facility] Comment on above: Performed By: #### C BC ####[facility] Zkhldxlhmj8128 [place] [phone]. Airam Deuce RBC 3.61 106/ul Critically low 4.20-5.40 [facility] Comment on above: Performed By: #### C BC ####[facility] Gnvqzkkrkc4[address] [place], [place] [address]Dr. Airam Tripathi WBC 7.5 103/ul Normal 4.0-11.0 [facility] Comment on above: Performed By: #### C BC ####[facility] Afyjycmcet8259 [place] [address]Dr. Airam Tripathi PROF 14(COMP METB)on 023 Albumin [Mass/Vol] 3.5 g/dL Normal 3.4-5.0 [facility] Comment on above: Performed By: #### C MP ####[facility] Xmuebxxcao4459 [place] [address]Dr. Airam Tripathi Albumin/Globulin [Mass ratio] 1.1 {ratio} Normal [facility] Comment on above: Performed By: #### C MP ####[facility] Akyhgogelm3845 [place] [address]Dr. Airam Tripathi ALP [Catalytic activity/Vol] 126 U/L Critically high 46-116 [facility] Comment on above: Performed By: #### C MP ####[facility] Mzvstqkndh[address] [place], [place] [address]Dr. Airam Tripathi ALT [Catalytic activity/Vol] 18 U/L Normal 14-59 [facility] Comment on above: Performed By: #### C MP ####[facility] Xissbanccl9411 [place] [address]Dr. Airam Tripathi Anion gap [Moles/Vol] 11.1 mmol/L Normal [facility] Comment on above: Performed By: #### C MP ####[facility] Xhidkdqrnw159[address] [place], [place] [address]Dr. Airam Tripathi AST [Catalytic activity/Vol] 26 U/L Normal 15-37 [facility] Comment on above: Performed By: #### C MP ####[facility] Tjwydojidy612[address] [place], [place] [address]Dr. Airam Tripathi Bilirubin [Mass/Vol] 0.3 mg/dL Normal 0.2-1.0 [facility] Comment on above: Performed By: #### C MP ####[facility] Izlvnjqmjv3207[address] [place], [place] [address]Dr. Airam Tripathi Calcium [Mass/Vol] 8.5 mg/dL Normal 8.5-10.1 [facility] Comment on above: Performed By: #### C MP ####[facility] Mlfodzbjua7812[address] [place], [place] [address]Dr. Airam Tripathi Chloride [Moles/Vol] 98 mmol/L Normal 98-107 [facility] Comment on above: Performed By: #### C MP ####[facility] Owjywktthz6906[address] [place], [place] [address]Dr. Airam Tripathi CO2 [Moles/Vol] 23.9 mmol/L Normal 21.0-32.0 [facility] Comment on above: Performed By: #### C MP ####[facility] Fqdebikgot4138[address] [place], [place] [address]Dr. Airam Tripathi Creatinine [Mass/Vol] 1.40 mg/dL Critically high 0.55-1.02 [facility] Comment on above: Performed By: #### C MP ####[facility] Mvodxtzkse0101[address] [place], [place] [address]Dr. Airam Tripathi EGFR-AF PANAMANIAN 46 mL/min/1.73m2 Critically low >=60 [facility] Comment on above: Performed By: #### C MP ####[facility] Yakzjadsjb[address] [place], [place] [address]Dr. Airam Tripathi EGFR-NON AF PANAMANIAN 38 mL/min/1.73m2 Critically low >=60 [facility] Comment on above: Performed By: #### C MP ####[facility] Ngktowcjbn4484[address] [place], [place] [address]Dr. Airam Tripathi Globulin (S) [Mass/Vol] 3.3 g/dL Normal [facility] Comment on above: Performed By: #### C MP ####[facility] Cbtaiuhkxi6[address] [place], [place] [address]Dr. Airam Tripathi Glucose [Mass/Vol] 72 mg/dL Critically low 74-106 Th [facility] Comment on above: Performed By: #### C MP ####[facility] Jwhmlaqitr4[address] [place], [place] [address]Dr. Airam Tripathi Potassium [Moles/Vol] 5.0 mmol/L Normal 3.5-5.1 [facility] Comment on above: Performed By: #### C MP ####[facility] Hfqgthdcye[address] [place], [place] [address]Dr. Airam Tripathi Protein [Mass/Vol] 6.8 g/dL Normal 6.4-8.2 [facility] Comment on above: Performed By: #### C MP ####[facility] Qrwwktqtaz24[address] [place], [place] [address]Dr. Airam Tripathi Sodium [Moles/Vol] 128 mmol/L Critically low 136-145 Th [facility] Comment on above: Performed By: #### C MP ####[facility] Vmnrzwbtdz3799[address] [place], [place] [address]Dr. Selenaneil Tripathi Urea nitrogen [Mass/Vol] 27.0 mg/dL Critically high 7.0-18.0 [facility] Comment on above: Performed By: #### C MP ####[facility] Wcikpyetzc40[address] [place], [place] [address]Dr. Airam Deuce Urea nitrogen/Creatinine [Mass ratio] 19.3 mg/mg Normal [facility] Comment on above: Performed By: #### C MP ####[facility] Swpdisxdzb15[address] [place], [place] [address]Dr. Airam Tripathi OSMOLALITYon 09-10-2022 Osmolality [Osmolality] 275 mosm/kg Normal 275-295 [facility] Comment on above: Performed By: #### O SMO ####[facility] Atbflhjayq4[address] [place], [place] [address]Dr. Airam Deuce CBC AUTO DIFFon 09-08-2022 BASO # 0.0 103/ul Normal 0.0-0.1 [facility] Comment on above: Performed By: #### C BC ####[facility] Uigpxdqjxg0869[address] [place], [place] [address]Dr. Airam Deuce Basophils/100 WBC (Bld) 0.5 % Normal 0.2-2.0 [facility] Comment on above: Performed By: #### C BC ####[facility] [address] [place] [id number]. Airam Tripathi EO # 0.1 103/ul Normal 0.0-0.7 [facility] Comment on above: Performed By: #### C BC ####[facility] V[address]dufpkov[address] [place] [address]Dr. Airam Tripathi Eosinophils/100 WBC (Bld) 1.7 % Normal 0.9-7.0 [facility] Comment on above: Performed By: #### C BC ####[facility] [address]uzgozww[address] [place] [address]Dr. Airam Tripathi Erythrocyte distribution width (RBC) [Ratio] 14.7 % Normal 11.0-15.0 [facility] Comment on above: Performed By: #### C BC ####[facility] Oulpvnsnau4[address] [place], [place] [address]Dr. Airam Tripathi Hematocrit (Bld) [Volume fraction] 30.3 % Critically low 36.0-48.0 [facility] Comment on above: Performed By: #### C BC ####[facility] [address]iciwgwx6[address] [place] [address]Dr. Airam Tripathi Hemoglobin (Bld) [Mass/Vol] 9.3 g/dL Critically low 12.0-16.0 [facility] Comment on above: Performed By: #### C BC ####[facility] [address]ytmwd[address] [place] [address]Dr. Airam Tripathi IG # 0.03 10e3/ul Normal 0.00-0.03 [facility] Comment on above: Performed By: #### C BC ####[facility] Uruehunton[address] [place] [address]Dr. Airam Tripathi IG % 0.5 % Normal 0.0-0.5 [facility] Comment on above: Performed By: #### C BC ####[facility] Uarqqidejj[address] [place] [address]Dr. Airam Tripathi LYMPH # 0.9 103/ul Critically low 1.2-3.8 [facility] Comment on above: Performed By: #### C BC ####[facility] Zykcsuvisw[address] [place] [id number]. Airam Tripathi Lymphocytes/100 WBC (Bld) 13.6 % Critically low 20.5-60.0 [facility] Comment on above: Performed By: #### C BC ####[facility] Vljtjzqyie[address] [place] [id number]. Airam Deuce MANUAL DIFF REQ NO Normal [facility] Comment on above: Performed By: #### C BC ####[facility] Owacduillx[address] [place] [id number]. Airam Tripathi MCH (RBC) [Entitic mass] 27.4 pg Normal 26.7-34.0 [facility] Comment on above: Performed By: #### C BC ####[facility] Anvpfyvyca[address] [place] [address]Dr. Airam Deuce MCHC (RBC) [Mass/Vol] 30.7 g/dL Normal 29.9-35.2 [facility] Comment on above: Performed By: #### C BC ####[facility] Zhosyfbqaw96[address] [place], [place] [address]Dr. Airam Deuce MCV (RBC) [Entitic vol] 89.4 fL Normal 81.0-99.0 [facility] Comment on above: Performed By: #### C BC ####[facility] Gtwycfpyrn8[address] [place], [place] [address]Dr. Selenaneil Deuce MONO # 0.5 103/ul Normal 0.3-0.8 [facility] Comment on above: Performed By: #### C BC ####[facility] Jogkiaizcz3[address] [place], [place] [address]Dr. Airam Deuce Monocytes/100 WBC (Bld) 8.0 % Normal 1.7-12.0 [facility] Comment on above: Performed By: #### C BC ####[facility] Apohyemmym[address] [place], [place] [address]Dr. Selenaneil Deuce NEUT # 5.0 103/ul Normal 1.4-6.5 [facility] Comment on above: Performed By: #### C BC ####[facility] Pl[address]fteytk50[address] [place] [phone]. Airam Tripathi Neutrophils/100 WBC (Bld) 75.7 % Critically high 43.0-75.0 [facility] Comment on above: Performed By: #### C BC ####[facility] Gumhespsay3283 [place] [phone]. Airam Tripathi Platelet mean volume (Bld) [Entitic vol] 10.4 fL Normal 9.5-13.5 [facility] Comment on above: Performed By: #### C BC ####[facility] Ymomcmdzfz37[address] [place] [phone]. Airam Tripathi PLT 315 103/ul Normal 150-450 [facility] Comment on above: Performed By: #### C BC ####[facility] Hwixsczmwz3707 [place] [phone]. Airam Tripathi RBC 3.39 106/ul Critically low 4.20-5.40 [facility] Comment on above: Performed By: #### C BC ####[facility] Pgqbzzszud2924 [place] [phone]. Airam Tripathi WBC 6.5 103/ul Normal 4.0-11.0 [facility] Comment on above: Performed By: #### C BC ####[facility] Afghrtikjz[address] [place] [address]Dr. Airam Tripathi PROF 14(COMP METB)on 023 Albumin [Mass/Vol] 3.1 g/dL Critically low 3.4-5.0 [facility] Comment on above: Performed By: #### C MP ####[facility] Skdvuudlsl5420 [place] [phone]. Airam Tripathi Albumin/Globulin [Mass ratio] 1.0 {ratio} Normal [facility] Comment on above: Performed By: #### C MP ####[facility] Zdfiqtypte6644 [place] [address]Dr. Selenaneil Tripathi ALP [Catalytic activity/Vol] 126 U/L Critically high 46-116 [facility] Comment on above: Performed By: #### C MP ####[facility] Jfpcbguatx6333 [place] [phone]. Airam Tripathi ALT [Catalytic activity/Vol] 18 U/L Normal 14-59 [facility] Comment on above: Performed By: #### C MP ####[facility] Zwawrmcofr5353 [place] [address]Dr. Airam Tripathi Anion gap [Moles/Vol] 11.4 mmol/L Normal Th e [facility] Comment on above: Performed By: #### C MP ####[facility] Hrbftfietq9090 [place] [address]Dr. Airam Tripathi AST [Catalytic activity/Vol] 25 U/L Normal 15-37 [facility] Comment on above: Performed By: #### C MP ####[facility] Yftwdthzsq8964[address] [place], [place] [address]Dr. Airam Tripathi Bilirubin [Mass/Vol] 0.3 mg/dL Normal 0.2-1.0 [facility] Comment on above: Performed By: #### C MP ####[facility] Taqahmcwvg3116[address] [place], [place] [address]Dr. Airam Tripathi Calcium [Mass/Vol] 8.6 mg/dL Normal 8.5-10.1 [facility] Comment on above: Performed By: #### C MP ####[facility] Acitqhyjrr7534[address] [place], [place] [address]Dr. Airam Tripathi Chloride [Moles/Vol] 97 mmol/L Critically low 98-107 [facility] Comment on above: Performed By: #### C MP ####[facility] Xfgilirmlt2713 [place] [address]Dr. Airam Tripathi CO2 [Moles/Vol] 26.1 mmol/L Normal 21.0-32.0 [facility] Comment on above: Performed By: #### C MP ####[facility] Zygdxcgwel2032[address] [place], [place] [address]Dr. Airam Tripathi Creatinine [Mass/Vol] 1.07 mg/dL Critically high 0.55-1.02 [facility] Comment on above: Performed By: #### C MP ####[facility] Xoyjrozbvs7398 [place] [phone]. Airam Tripathi EGFR-AF PANAMANIAN >60 Normal >=60 [facility] Comment on above: Performed By: #### C MP ####[facility] Dsqroqufqt7917 [place] [address]Dr. Airam Tripathi EGFR-NON AF PANAMANIAN 52 mL/min/1.73m2 Critically low >=60 [facility] Comment on above: Performed By: #### C MP ####[facility] Mkxgpdqswp4467 [place] [address]Dr. Airam Tripathi Globulin (S) [Mass/Vol] 3.2 g/dL Normal [facility] Comment on above: Performed By: #### C MP ####[facility] Ddjphckrvf6536[address] [place], [place] [address]Dr. Airam Tripathi Glucose [Mass/Vol] 83 mg/dL Normal 74-106 [facility] Comment on above: Performed By: #### C MP ####[facility] Uwcaegaomf8107 [place] [address]Dr. Airam Tripathi Potassium [Moles/Vol] 5.5 mmol/L Critically high 3.5-5.1 [facility] Comment on above: Performed By: #### C MP ####[facility] Gzxktevldy549[address] [place], [place] [address]Dr. Airam Tripathi Protein [Mass/Vol] 6.3 g/dL Critically low 6.4-8.2 Th [facility] Comment on above: Performed By: #### C MP ####[facility] Njiklivwqp6408[address] [place], [place] [address]Dr. Airam Tripathi Sodium [Moles/Vol] 129 mmol/L Critically low 136-145 Th [facility] Comment on above: Performed By: #### C MP ####[facility] Rthgimirlj8964[address] [place], [place] [address]Dr. Airam Tripathi Urea nitrogen [Mass/Vol] 37.0 mg/dL Critically high 7.0-18.0 [facility] Comment on above: Performed By: #### C MP ####[facility] Qeskwihzae8[address] [place] [address]Dr. Airam Tripathi Urea nitrogen/Creatinine [Mass ratio] 34.6 mg/mg Normal [facility] Comment on above: Performed By: #### C MP ####[facility] Uxtbhefbvf835133 [address] [place], [place] [address]Dr. Airam Tripathi OSMOLALITYon 09-02-2022 Osmolality [Osmolality] 279 mosm/kg Normal 275-295 [facility] Comment on above: Performed By: #### O SMO ####[facility] Uheapmzlnc7918[address] [place], [place] [address]Dr. Airam Tripathi CBC AUTO DIFFon 08-31-2022 BASO # 0.0 103/ul Normal 0.0-0.1 [facility] Comment on above: Performed By: #### C BC ####[facility] Fwageziolz059233 [address] [place], [place] [address]Dr. Airam Tripathi Basophils/100 WBC (Bld) 0.4 % Normal 0.2-2.0 [facility] Comment on above: Performed By: #### C BC ####[facility] Iqymktlcra332[address] [place], [place] [address]Dr. Airam Tripathi EO # 0.2 103/ul Normal 0.0-0.7 [facility] Comment on above: Performed By: #### C BC ####[facility] Yfesfbqxrm0847[address] [place], [place] [address]Dr. Airam Tripathi Eosinophils/100 WBC (Bld) 3.2 % Normal 0.9-7.0 [facility] Comment on above: Performed By: #### C BC ####[facility] Tigqxzvvig3817[address] [place], [place] [address]Dr. Airam Tripathi Erythrocyte distribution width (RBC) [Ratio] 14.4 % Normal 11.0-15.0 [facility] Comment on above: Performed By: #### C BC ####[facility] Zemsjncxhi8632[address] [place], [place] [address]Dr. Airam Tripathi Hematocrit (Bld) [Volume fraction] 27.8 % Critically low 36.0-48.0 [facility] Comment on above: Performed By: #### C BC ####[facility] Xxabvuerqe5295 [place] [phone]. Airam Tripathi Hemoglobin (Bld) [Mass/Vol] 8.7 g/dL Critically low 12.0-16.0 [facility] Comment on above: Performed By: #### C BC ####[facility] Jpaszgbugx3684 [place] [address]Dr. Airam Tripathi IG # 0.05 10e3/ul Critically high 0.00-0.03 [facility] Comment on above: Performed By: #### C BC ####[facility] Ryjyiamnat8098[address] [place], [place] [address]Dr. Airam Tripathi IG % 0.7 % Critically high 0.0-0.5 [facility] Comment on above: Performed By: #### C BC ####[facility] Yqgqmdrovr904[address] [place], [place] [address]Dr. Airam Tripathi LYMPH # 1.7 103/ul Normal 1.2-3.8 [facility] Comment on above: Performed By: #### C BC ####[facility] Hbvbzobxwa4605[address] [place], [place] [address]Dr. Airam Tripathi Lymphocytes/100 WBC (Bld) 23.6 % Normal 20.5-60.0 [facility] Comment on above: Performed By: #### C BC ####[facility] Tksxuyvctj7110[address] [place], [place] [address]Dr. Airam Tripathi MANUAL DIFF REQ NO Normal [facility] Comment on above: Performed By: #### C BC ####[facility] Rbrubeoadd5337[address] [place], [place] [address]Dr. Airam Tripathi MCH (RBC) [Entitic mass] 27.8 pg Normal 26.7-34.0 [facility] Comment on above: Performed By: #### C BC ####[facility] Ynzlwxuapg154533 [address] [place], [place] [address]Dr. Airam Tripathi MCHC (RBC) [Mass/Vol] 31.3 g/dL Normal 29.9-35.2 [facility] Comment on above: Performed By: #### C BC ####[facility] Mvsmnsybrm4545 [place] [phone]. Airam Tripathi MCV (RBC) [Entitic vol] 88.8 fL Normal 81.0-99.0 [facility] Comment on above: Performed By: #### C BC ####[facility] Bkwrcttmre1447 [place] [phone]. Airam Tripathi MONO # 0.5 103/ul Normal 0.3-0.8 [facility] Comment on above: Performed By: #### C BC ####[facility] Sduaxclwnf9568 [place] [phone]. Airam Tripathi Monocytes/100 WBC (Bld) 6.9 % Normal 1.7-12.0 [facility] Comment on above: Performed By: #### C BC ####[facility] Uwjspxszme7525[address] [place], [place] [address]Dr. Airam Tripathi NEUT # 4.7 103/ul Normal 1.4-6.5 [facility] Comment on above: Performed By: #### C BC ####[facility] Lqkpjcqmcj[address] [place], [place] [id number]. Airam Tripathi Neutrophils/100 WBC (Bld) 65.2 % Normal 43.0-75.0 [facility] Comment on above: Performed By: #### C BC ####[facility] Gbfztsaxaa[address] [place], [place] [id number]. Airam Tripathi Platelet mean volume (Bld) [Entitic vol] 9.8 fL Normal 9.5-13.5 [facility] Comment on above: Performed By: #### C BC ####[facility] Yojoagumnf7775 [place] [phone]. Airam Tripathi PLT 225 103/ul Normal 150-450 [facility] Comment on above: Performed By: #### C BC ####[facility] Pcdagdphrr20[address] [place], [place] [id number]. Airam Tripathi RBC 3.13 106/ul Critically low 4.20-5.40 [facility] Comment on above: Performed By: #### C BC ####[facility] Jywivtdxio2620 [place] [address]Dr. Airam Tripathi WBC 7.3 103/ul Normal 4.0-11.0 [facility] Comment on above: Performed By: #### C BC ####[facility] Bwxxmpetzv4520[address] [place], [place] [address]Dr. Airam Tripathi PROF 14(COMP METB)on 023 Albumin [Mass/Vol] 3.0 g/dL Critically low 3.4-5.0 Th e [facility] Comment on above: Performed By: #### C MP ####[facility] Isfmdagldv0318 [place] [address]Dr. Airam Tripathi Albumin/Globulin [Mass ratio] 1.1 {ratio} Normal [facility] Comment on above: Performed By: #### C MP ####[facility] Pnqpdonwfd4456[address] [place], [place] [address]Dr. Airam Tripathi ALP [Catalytic activity/Vol] 132 U/L Critically high 46-116 [facility] Comment on above: Performed By: #### C MP ####[facility] Utnownvvou8449[address] [place], [place] [address]Dr. Airam Tripathi ALT [Catalytic activity/Vol] 20 U/L Normal 14-59 [facility] Comment on above: Performed By: #### C MP ####[facility] Xnclfqelxr9866[address] [place], [place] [address]Dr. Airam Tripathi Anion gap [Moles/Vol] 9.5 mmol/L Normal [facility] Comment on above: Performed By: #### C MP ####[facility] Snjopwlgtm7723[address] [place], [place] [address]Dr. Airam Tripathi AST [Catalytic activity/Vol] 25 U/L Normal 15-37 [facility] Comment on above: Performed By: #### C MP ####[facility] Skjmsdqlnf2466[address] [place], [place] [address]Dr. Airam Tripathi Bilirubin [Mass/Vol] 0.2 mg/dL Normal 0.2-1.0 [facility] Comment on above: Performed By: #### C MP ####[facility] Ckiuuqsohe4727 [place] [phone]. Airam Tripathi Calcium [Mass/Vol] 7.9 mg/dL Critically low 8.5-10.1 Th [facility] Comment on above: Performed By: #### C MP ####[facility] Zqqdxobeuv0592 [place] [phone]. Airam Tripathi Chloride [Moles/Vol] 97 mmol/L Critically low 98-107 [facility] Comment on above: Performed By: #### C MP ####[facility] Gjaxpflaxj287[address] [place], [place] [address]Dr. Airam Tripathi CO2 [Moles/Vol] 27.3 mmol/L Normal 21.0-32.0 [facility] Comment on above: Performed By: #### C MP ####[facility] Hqkqqjpuyg0287[address] [place], [place] [address]Dr. Airam Deuce Creatinine [Mass/Vol] 1.58 mg/dL Critically high 0.55-1.02 [facility] Comment on above: Performed By: #### C MP ####[facility] Rtsasglwgn[address] [place], [place] [address]Dr. Airam Deuce EGFR-AF PANAMANIAN 40 mL/min/1.73m2 Critically low >=60 [facility] Comment on above: Performed By: #### C MP ####[facility] Wgemcqplyf5847[address] [place], [place] [address]Dr. Airam Deuce EGFR-NON AF PANAMANIAN 33 mL/min/1.73m2 Critically low >=60 [facility] Comment on above: Performed By: #### C MP ####[facility] Pirfmtnhta[address] [place], [place] [address]Dr. Airam Deuce Globulin (S) [Mass/Vol] 2.8 g/dL Normal [facility] Comment on above: Performed By: #### C MP ####[facility] Dgmjucvlyv2569[address] [place], [place] [address]Dr. Airam Deuce Glucose [Mass/Vol] 111 mg/dL Critically high 74-106 [facility] Comment on above: Performed By: #### C MP ####[facility] Skkxyjxlkp8300 [place] [address]Dr. Airam Tripathi Potassium [Moles/Vol] 4.8 mmol/L Normal 3.5-5.1 [facility] Comment on above: Performed By: #### C MP ####[facility] Kcbhkyhimi5827 [place] [address]Dr. Airam Tripathi Protein [Mass/Vol] 5.8 g/dL Critically low 6.4-8.2 Th [facility] Comment on above: Performed By: #### C MP ####[facility] Epqlfqwdmw458133 [address] [place], [place] [address]Dr. Airam Tripathi Sodium [Moles/Vol] 129 mmol/L Critically low 136-145 Th [facility] Comment on above: Performed By: #### C MP ####[facility] Czhejzjmav2907[address] [place], [place] [address]Dr. Airam Tripathi Urea nitrogen [Mass/Vol] 44.0 mg/dL Critically high 7.0-18.0 [facility] Comment on above: Performed By: #### C MP ####[facility] Ilgbcrxbve886[address] [place], [place] [address]Dr. Airam Tripathi Urea nitrogen/Creatinine [Mass ratio] 27.8 mg/mg Normal [facility] Comment on above: Performed By: #### C MP ####[facility] Srqjywdknw76[address] [place], [place] [address]Dr. Airam Tripathi OSMOLALITYon 08-28-2022 Osmolality [Osmolality] 288 mosm/kg Normal 275-295 [facility] Comment on above: Performed By: #### O SMO ####[facility] Knhnabfdvv749[address] [place], [place] [address]Dr. Airam Tripathi CBC AUTO DIFFon 08-25-2022 BASO # 0.0 103/ul Normal 0.0-0.1 [facility] Comment on above: Performed By: #### C BC ####[facility] Mphhoyadua4177[address] [place], [place] [address]Dr. Airam Tripathi Basophils/100 WBC (Bld) 0.5 % Normal 0.2-2.0 [facility] Comment on above: Performed By: #### C BC ####[facility] Jcgwxleghm1222 [place] [phone]. Airam Tripathi EO # 0.4 103/ul Normal 0.0-0.7 [facility] Comment on above: Performed By: #### C BC ####[facility] Jozgvvpstr0166 [place] [address]Dr. Airam Tripathi Eosinophils/100 WBC (Bld) 4.8 % Normal 0.9-7.0 [facility] Comment on above: Performed By: #### C BC ####[facility] Fvjmmujfaw2722[address] [place], [place] [address]Dr. Airam Tripathi Erythrocyte distribution width (RBC) [Ratio] 14.2 % Normal 11.0-15.0 [facility] Comment on above: Performed By: #### C BC ####[facility] Amwvualzvg1523[address] [place], [place] [address]Dr. Airam Tripathi Hematocrit (Bld) [Volume fraction] 31.1 % Critically low 36.0-48.0 [facility] Comment on above: Performed By: #### C BC ####[facility] Shfrsoeoxf7324[address] [place], [place] [address]Dr. Airam Tripathi Hemoglobin (Bld) [Mass/Vol] 9.7 g/dL Critically low 12.0-16.0 [facility] Comment on above: Performed By: #### C BC ####[facility] Jkirrzdvoz84[address] [place], [place] [address]Dr. Airam Tripathi IG # 0.05 10e3/ul Critically high 0.00-0.03 [facility] Comment on above: Performed By: #### C BC ####[facility] Ugrgkouvto87[address] [place], [place] [address]Dr. Airam Tripathi IG % 0.6 % Critically high 0.0-0.5 [facility] Comment on above: Performed By: #### C BC ####[facility] S[address]vawyzgq917[address] [place], [place] [address]Dr. Airam Tripathi LYMPH # 1.7 103/ul Normal 1.2-3.8 [facility] Comment on above: Performed By: #### C BC ####[facility] [address]tsdwbfkoq[address] [place] [id number]. Airam Deuce Lymphocytes/100 WBC (Bld) 19.6 % Critically low 20.5-60.0 [facility] Comment on above: Performed By: #### C BC ####[facility] [address]ke[address]ql[address] [place] [address]Dr. Airam Tripathi MANUAL DIFF REQ NO Normal [facility] Comment on above: Performed By: #### C BC ####[facility] [address]wh[address] [place] [id number]. Selenaneil Tripathi MCH (RBC) [Entitic mass] 28.2 pg Normal 26.7-34.0 [facility] Comment on above: Performed By: #### C BC ####[facility] [address]pycii[address] [place], [place] [address]Dr. Airam Tripathi MCHC (RBC) [Mass/Vol] 31.2 g/dL Normal 29.9-35.2 [facility] Comment on above: Performed By: #### C BC ####[facility] Nkolmjmytk[address] [place], [place] [address]Dr. Selenaneil Tripathi MCV (RBC) [Entitic vol] 90.4 fL Normal 81.0-99.0 [facility] Comment on above: Performed By: #### C BC ####[facility] Eejzuxizrg8[address] [place], [place] [address]Dr. Airam Tripathi MONO # 0.6 103/ul Normal 0.3-0.8 [facility] Comment on above: Performed By: #### C BC ####[facility] Nwbulqasnf7[address] [place], [place] [address]Dr. Airam Tripathi Monocytes/100 WBC (Bld) 7.4 % Normal 1.7-12.0 [facility] Comment on above: Performed By: #### C BC ####[facility] Obmajavuba[address] [place], [place] [address]Dr. Airam Tripathi NEUT # 5.8 103/ul Normal 1.4-6.5 [facility] Comment on above: Performed By: #### C BC ####[facility] Qiqwfrmjlu[address] [place] [address]Dr. Airam Tripathi Neutrophils/100 WBC (Bld) 67.1 % Normal 43.0-75.0 [facility] Comment on above: Performed By: #### C BC ####[facility] Ryqmsirjcf2602 [place] [id number]. Selenaneil Tripathi Platelet mean volume (Bld) [Entitic vol] 9.9 fL Normal 9.5-13.5 [facility] Comment on above: Performed By: #### C BC ####[facility] K[address]wyhqhnf[address] [place] [address]Dr. Airam Tripathi PLT 320 103/ul Normal 150-450 [facility] Comment on above: Performed By: #### C BC ####[facility] Vozhdaonfv4[address] [place] [address]Dr. Airam Tripathi RBC 3.44 106/ul Critically low 4.20-5.40 [facility] Comment on above: Performed By: #### C BC ####[facility] Lzoimalvzt79[address] [place], [place] [address]Dr. Airam Tripathi WBC 8.6 103/ul Normal 4.0-11.0 [facility] Comment on above: Performed By: #### C BC ####[facility] Fwtkjbeqll95[address] [place], [place] [address]Dr. Airam Tripathi PROF 14(COMP METB)on 023 Albumin [Mass/Vol] 3.4 g/dL Normal 3.4-5.0 [facility] Comment on above: Performed By: #### C MP ####[facility] Koifeyalhd96[address] [place], [place] [address]Dr. Airam Tripathi Albumin/Globulin [Mass ratio] 1.1 {ratio} Normal [facility] Comment on above: Performed By: #### C MP ####[facility] Saksvmunkv[address] [place] [address]Dr. Airam Tripathi ALP [Catalytic activity/Vol] 170 U/L Critically high 46-116 [facility] Comment on above: Performed By: #### C MP ####[facility] Xjqmwfzxir8640 [place] [id number]. Airam Tripathi ALT [Catalytic activity/Vol] 22 U/L Normal 14-59 [facility] Comment on above: Performed By: #### C MP ####[facility] Fxgkunblkd9621 [place] [id number]. Airam Tripathi Anion gap [Moles/Vol] 14.4 mmol/L Normal [facility] Comment on above: Performed By: #### C MP ####[facility] Igwsanjcmv5685 [place] [id number]. Airam Tripathi AST [Catalytic activity/Vol] 25 U/L Normal 15-37 [facility] Comment on above: Performed By: #### C MP ####[facility] Tpzuyaoxys9[address] [place], [place] [address]Dr. Airam Tripathi Bilirubin [Mass/Vol] 0.3 mg/dL Normal 0.2-1.0 [facility] Comment on above: Performed By: #### C MP ####[facility] Vfagxwwpra1635 [place] [id number]. Airam Tripathi Calcium [Mass/Vol] 8.2 mg/dL Critically low 8.5-10.1 [facility] Comment on above: Performed By: #### C MP ####[facility] Qkdzuuqmqp23[address] [place] [address]Dr. Airam Tripathi Chloride [Moles/Vol] 98 mmol/L Normal 98-107 [facility] Comment on above: Performed By: #### C MP ####[facility] Szzanmbeus0632 [place] [id number]. Airam Tripathi CO2 [Moles/Vol] 27.8 mmol/L Normal 21.0-32.0 [facility] Comment on above: Performed By: #### C MP ####[facility] Woyysnnoro[address] [place], [place] [id number]. Airam Tripathi Creatinine [Mass/Vol] 1.82 mg/dL Critically high 0.55-1.02 [facility] Comment on above: Performed By: #### C MP ####[facility] Asvgcocacy4819 [place] [id number]. Airam Tripathi EGFR-AF PANAMANIAN 34 mL/min/1.73m2 Critically low >=60 [facility] Comment on above: Performed By: #### C MP ####[facility] Jmaexquewx3619 [place] [id number]. Airam Tripathi EGFR-NON AF PANAMANIAN 28 mL/min/1.73m2 Critically low >=60 [facility] Comment on above: Performed By: #### C MP ####[facility] Jsrefsojqu8785 [place] [id number]. Airam Tripathi Globulin (S) [Mass/Vol] 3.2 g/dL Normal [facility] Comment on above: Performed By: #### C MP ####[facility] Mshkkfqefo0098 [place] [address]Dr. Selenaneil Tripathi Glucose [Mass/Vol] 78 mg/dL Normal 74-106 [facility] Comment on above: Performed By: #### C MP ####[facility] Kzamvqfbey47[address] [place] [address]Dr. Airam Tripathi Potassium [Moles/Vol] 5.2 mmol/L Critically high 3.5-5.1 [facility] Comment on above: Performed By: #### C MP ####[facility] Gskosokrcn8062 [place] [address]Dr. Selenaneil Deuce Protein [Mass/Vol] 6.6 g/dL Normal 6.4-8.2 [facility] Comment on above: Performed By: #### C MP ####[facility] Bphgdjizsq87[address] [place] [address]Dr. Airam Tripathi Sodium [Moles/Vol] 135 mmol/L Critically low 136-145 [facility] Comment on above: Performed By: #### C MP ####[facility] Shmzpcrngn3249 [place] [address]Dr. Airam Tripathi Urea nitrogen [Mass/Vol] 51.0 mg/dL Critically high 7.0-18.0 [facility] Comment on above: Performed By: #### C MP ####[facility] Ncdmicmocc1833 [place] [address]Dr. Airam Tripathi Urea nitrogen/Creatinine [Mass ratio] 28.0 mg/mg Normal [facility] Comment on above: Performed By: #### C MP ####[facility] Jximnrztvi7680[address] [place], [place] [address]Dr. Airam Tripathi OSMOLALITYon 08-18-2022 Osmolality [Osmolality] 280 mosm/kg Normal 275-295 [facility] Comment on above: Performed By: #### O SMO ####[facility] Exicyiqawa4450[address] [place], [place] [address]Dr. Airam Deuce CBC AUTO DIFFon 08-16-2022 BASO # 0.0 103/ul Normal 0.0-0.1 [facility] Comment on above: Performed By: #### C BC ####[facility] Azummsdjln8016[address] [place], [place] [address]Dr. Airam Tripathi Basophils/100 WBC (Bld) 0.2 % Normal 0.2-2.0 [facility] Comment on above: Performed By: #### C BC ####[facility] Rrwbxqqknr8723[address] [place], [place] [address]Dr. Selenaneil Tripathi EO # 0.2 103/ul Normal 0.0-0.7 [facility] Comment on above: Performed By: #### C BC ####[facility] Sjqdbbsnbh4966[address] [place], [place] [address]Dr. Airam Tripathi Eosinophils/100 WBC (Bld) 2.4 % Normal 0.9-7.0 [facility] Comment on above: Performed By: #### C BC ####[facility] Rktplxruvy5[address] [place], [place] [address]Dr. Selenaneil Tripathi Erythrocyte distribution width (RBC) [Ratio] 14.2 % Normal 11.0-15.0 [facility] Comment on above: Performed By: #### C BC ####[facility] Axayjcqklq3832[address] [place], [place] [address]Dr. Airam Tripathi Hematocrit (Bld) [Volume fraction] 30.1 % Critically low 36.0-48.0 [facility] Comment on above: Performed By: #### C BC ####[facility] Stwqkwkarm6[address] [place] [address]Dr. Airam Tripathi Hemoglobin (Bld) [Mass/Vol] 9.2 g/dL Critically low 12.0-16.0 [facility] Comment on above: Performed By: #### C BC ####[facility] Wfcgtpidvk6669 [place] [address]Dr. Airam Tripathi IG # 0.04 10e3/ul Critically high 0.00-0.03 [facility] Comment on above: Performed By: #### C BC ####[facility] Ekptzzxgkz3287[address] [place], [place] [address]Dr. Airam Tripathi IG % 0.4 % Normal 0.0-0.5 [facility] Comment on above: Performed By: #### C BC ####[facility] Ezzfvqzndb[address] [place], [place] [address]Dr. Airam Tripathi LYMPH # 0.9 103/ul Critically low 1.2-3.8 [facility] Comment on above: Performed By: #### C BC ####[facility] Vopzsbqbvo6920[address] [place], [place] [address]Dr. Airam Tripathi Lymphocytes/100 WBC (Bld) 9.3 % Critically low 20.5-60.0 [facility] Comment on above: Performed By: #### C BC ####[facility] Spwuydpggz4723[address] [place], [place] [address]Dr. Airam Tripathi MANUAL DIFF REQ NO Normal [facility] Comment on above: Performed By: #### C BC ####[facility] Kuuuwzltia15[address] [place], [place] [address]Dr. Airam Tripathi MCH (RBC) [Entitic mass] 27.7 pg Normal 26.7-34.0 [facility] Comment on above: Performed By: #### C BC ####[facility] Girleatxdr69[address] [place], [place] [address]Dr. Airam Tripathi MCHC (RBC) [Mass/Vol] 30.6 g/dL Normal 29.9-35.2 [facility] Comment on above: Performed By: #### C BC ####[facility] Dfiigeatwm9228 [place] [id number]. Airam Tripathi MCV (RBC) [Entitic vol] 90.7 fL Normal 81.0-99.0 [facility] Comment on above: Performed By: #### C BC ####[facility] Uqyfnliawi3673 [place] [id number]. Airam Tripathi MONO # 0.5 103/ul Normal 0.3-0.8 [facility] Comment on above: Performed By: #### C BC ####[facility] Mnjchwblht0573 [place] [id number]. Airam Deuce Monocytes/100 WBC (Bld) 5.3 % Normal 1.7-12.0 [facility] Comment on above: Performed By: #### C BC ####[facility] Duaufyssqx6136[address] [place], [place] [address]Dr. Airam Tripathi NEUT # 7.7 103/ul Critically high 1.4-6.5 [facility] Comment on above: Performed By: #### C BC ####[facility] Lhjdttiidk[address] [place], [place] [id number]. Airam Deuce Neutrophils/100 WBC (Bld) 82.4 % Critically high 43.0-75.0 [facility] Comment on above: Performed By: #### C BC ####[facility] Eeuduypbmp[address] [place], [place] [id number]. Airam Deuce Platelet mean volume (Bld) [Entitic vol] 9.8 fL Normal 9.5-13.5 [facility] Comment on above: Performed By: #### C BC ####[facility] Ycyfbllzuv[address] [place], [place] [id number]. Airam Deuce PLT 285 103/ul Normal 150-450 [facility] Comment on above: Performed By: #### C BC ####[facility] Hwshcvyofi9006 [place] [id number]. Airam Tripathi RBC 3.32 106/ul Critically low 4.20-5.40 [facility] Comment on above: Performed By: #### C BC ####[facility] Dbknzozbiq4787 [place] [address]Dr. Airam Tripathi WBC 9.4 103/ul Normal 4.0-11.0 [facility] Comment on above: Performed By: #### C BC ####[facility] Gyggxjbuud0152 [place] [address]Dr. Airam Tripathi MRI WRIST RT WO CONon 2022 MRI WRIST RT WO CON Normal [facility] PROF 14(COMP METB)on 023 Albumin [Mass/Vol] 3.1 g/dL Critically low 3.4-5.0 [facility] Comment on above: Performed By: #### C MP ####[facility] Ajnyewdrwv862[address] [place], [place] [address]Dr. Airam Tripathi Albumin/Globulin [Mass ratio] 0.9 {ratio} Normal [facility] Comment on above: Performed By: #### C MP ####[facility] Rcpugmmysy7824[address] [place], [place] [address]Dr. Airam Tripathi ALP [Catalytic activity/Vol] 162 U/L Critically high 46-116 [facility] Comment on above: Performed By: #### C MP ####[facility] Cincchwcdc4248[address] [place], [place] [address]Dr. Airam Tripathi ALT [Catalytic activity/Vol] 19 U/L Normal 14-59 [facility] Comment on above: Performed By: #### C MP ####[facility] Wybkyyyhpp7200[address] [place], [place] [address]Dr. Airam Tripathi Anion gap [Moles/Vol] 13.0 mmol/L Normal [facility] Comment on above: Performed By: #### C MP ####[facility] Qawwsaqazr5697[address] [place], [place] [address]Dr. Airam Tripathi AST [Catalytic activity/Vol] 21 U/L Normal 15-37 [facility] Comment on above: Performed By: #### C MP ####[facility] Eraabglqkq153333 [address] [place], [place] [address]Dr. Airam Tripathi Bilirubin [Mass/Vol] 0.3 mg/dL Normal 0.2-1.0 [facility] Comment on above: Performed By: #### C MP ####[facility] Jyxpxhokkm07[address] [place] [address]Dr. Airam Deuce Calcium [Mass/Vol] 8.4 mg/dL Critically low 8.5-10.1 [facility] Comment on above: Performed By: #### C MP ####[facility] Ifonvertin230833 [address] [place], [place] [address]Dr. Selenaneil Deuce Chloride [Moles/Vol] 103 mmol/L Normal 98-107 [facility] Comment on above: Performed By: #### C MP ####[facility] Pdpoptzkqf3516[address] [place], [place] [address]Dr. Airam Deuce CO2 [Moles/Vol] 23.3 mmol/L Normal 21.0-32.0 [facility] Comment on above: Performed By: #### C MP ####[facility] Avokmcpeni3666[address] [place], [place] [address]Dr. Airam Deuce Creatinine [Mass/Vol] 1.02 mg/dL Normal 0.55-1.02 [facility] Comment on above: Performed By: #### C MP ####[facility] Mjjzuqkxaj3484[address] [place], [place] [address]Dr. Airam Deuce EGFR-AF PANAMANIAN >60 Normal >=60 [facility] Comment on above: Performed By: #### C MP ####[facility] Gxzntmttxg300[address] [place], [place] [address]Dr. Airam Tripathi EGFR-NON AF PANAMANIAN 55 mL/min/1.73m2 Critically low >=60 [facility] Comment on above: Performed By: #### C MP ####[facility] Etuuszpcxc2979[address] [place], [place] [address]Dr. Airam Tripathi Globulin (S) [Mass/Vol] 3.4 g/dL Normal [facility] Comment on above: Performed By: #### C MP ####[facility] Wacgufuivn5574[address] [place], [place] [address]Dr. Airam Tripathi Glucose [Mass/Vol] 88 mg/dL Normal 74-106 [facility] Comment on above: Performed By: #### C MP ####[facility] Bkeggnxjrn6066 [place] [address]Dr. Selenaneil Deuce Potassium [Moles/Vol] 4.3 mmol/L Normal 3.5-5.1 [facility] Comment on above: Performed By: #### C MP ####[facility] Raxncumwoz8604 [place] [address]Dr. Airam Tripathi Protein [Mass/Vol] 6.5 g/dL Normal 6.4-8.2 [facility] Comment on above: Performed By: #### C MP ####[facility] Aamheywwdx6561 [place] [address]Dr. Airam Tripathi Sodium [Moles/Vol] 135 mmol/L Critically low 136-145 [facility] Comment on above: Performed By: #### C MP ####[facility] Irdckylgwd1192 [place] [address]Dr. Airam Tripathi Urea nitrogen [Mass/Vol] 27.0 mg/dL Critically high 7.0-18.0 [facility] Comment on above: Performed By: #### C MP ####[facility] Gknmyesook719[address] [place], [place] [address]Dr. Selenaneil Deuce Urea nitrogen/Creatinine [Mass ratio] 26.5 mg/mg Normal [facility] Comment on above: Performed By: #### C MP ####[facility] Pwdtqzzylw939[address] [place], [place] [address]Dr. Airam Tripathi CT HEAD WO CONon 08-06-2022 CT HEAD WO CON Normal [facility] CT LSPINE WO CONon 3 CT LSPINE WO CON Normal [facility] XR HAND RT MIN 3Von 08-06-19 23 XR HAND RT MIN 3V Normal [facility] XR KNEE LT 4V or >on 023 XR KNEE LT 4V or > Normal [facility] XR WRIST RT MIN 3 Von 2022 XR WRIST RT MIN 3 V Normal [facility] OSMOLALITYon 08-05-2022 Osmolality [Osmolality] 282 mosm/kg Normal 275-295 [facility] Comment on above: Performed By: #### O SMO ####[facility] Twrzqmcreh28[address] [place] [address]Dr. Airam Tripathi CBC AUTO DIFFon 08-03-2022 BASO # 0.0 103/ul Normal 0.0-0.1 [facility] Comment on above: Performed By: #### C BC ####[facility] Shwxzhtozz3924[address] [place], [place] [address]DrKianna Tripathi Basophils/100 WBC (Bld) 0.5 % Normal 0.2-2.0 [facility] Comment on above: Performed By: #### C BC ####[facility] Gczsglphoi433[address] [place], [place] [address]DrKianna Tripathi EO # 0.5 103/ul Normal 0.0-0.7 [facility] Comment on above: Performed By: #### C BC ####[facility] Oscvbbyxvx0175[address] [place], [place] [address]DrKianna Tripathi Eosinophils/100 WBC (Bld) 5.2 % Normal 0.9-7.0 [facility] Comment on above: Performed By: #### C BC ####[facility] Nesemlwbyd0544[address] [place], [place] [address]DrKianna Tripathi Erythrocyte distribution width (RBC) [Ratio] 14.3 % Normal 11.0-15.0 [facility] Comment on above: Performed By: #### C BC ####[facility] Jicueuzfqa8067[address] [place], [place] [address]DrKianna Tripathi Hematocrit (Bld) [Volume fraction] 31.4 % Critically low 36.0-48.0 [facility] Comment on above: Performed By: #### C BC ####[facility] Ulrgndvpme936[address] [place], [place] [address]DrKianna Tripathi Hemoglobin (Bld) [Mass/Vol] 9.5 g/dL Critically low 12.0-16.0 [facility] Comment on above: Performed By: #### C BC ####[facility] Exptzecghf2030[address] [place], [place] [address]DrKianna Tripathi IG # 0.05 10e3/ul Critically high 0.00-0.03 [facility] Comment on above: Performed By: #### C BC ####[facility] Lneedfinga1571 [place] [address]DrKianna Tripathi IG % 0.6 % Critically high 0.0-0.5 [facility] Comment on above: Performed By: #### C BC ####[facility] Lzkgaqxseu3175 [place] [address]DrKianna Tripathi LYMPH # 1.5 103/ul Normal 1.2-3.8 [facility] Comment on above: Performed By: #### C BC ####[facility] Tlhdglkgmc0346 [place] [address]DrKianna Tripathi Lymphocytes/100 WBC (Bld) 17.6 % Critically low 20.5-60.0 [facility] Comment on above: Performed By: #### C BC ####[facility] Slszdrffpb8838[address] [place], [place] [address]DrKianna Tripathi MANUAL DIFF REQ NO Normal [facility] Comment on above: Performed By: #### C BC ####[facility] Hqaviaeccd0832[address] [place], [place] [address]DrKianna Tripathi MCH (RBC) [Entitic mass] 29.0 pg Normal 26.7-34.0 [facility] Comment on above: Performed By: #### C BC ####[facility] Liznswbldj575[address] [place], [place] [address]DrKianna Tripathi MCHC (RBC) [Mass/Vol] 30.3 g/dL Normal 29.9-35.2 [facility] Comment on above: Performed By: #### C BC ####[facility] Zwylxvyeuv9[address] [place], [place] [address]DrKianna Tripathi MCV (RBC) [Entitic vol] 95.7 fL Normal 81.0-99.0 [facility] Comment on above: Performed By: #### C BC ####[facility] Ncxvribfdu3218[address] [place], [place] [address]DrKianna Tripathi MONO # 0.7 103/ul Normal 0.3-0.8 [facility] Comment on above: Performed By: #### C BC ####[facility] Bricutluon9[address] [place] [address]DrKianna Tripathi Monocytes/100 WBC (Bld) 8.5 % Normal 1.7-12.0 [facility] Comment on above: Performed By: #### C BC ####[facility] Yihwnxvqwb7925[address] [place], [place] [address]DrKianna Tripathi NEUT # 5.8 103/ul Normal 1.4-6.5 [facility] Comment on above: Performed By: #### C BC ####[facility] Ayxzdhjldt8842 [place] [address]DrKianna Airam Tripathi Neutrophils/100 WBC (Bld) 67.6 % Normal 43.0-75.0 [facility] Comment on above: Performed By: #### C BC ####[facility] Ojfyscsqgx0638[address] [place], [place] [address]DrKianna Airam Tripathi Platelet mean volume (Bld) [Entitic vol] 9.5 fL Normal 9.5-13.5 [facility] Comment on above: Performed By: #### C BC ####[facility] Larpgscusx8790[address] [place], [place] [address]DrKianna Airam Tripathi PLT 292 103/ul Normal 150-450 [facility] Comment on above: Performed By: #### C BC ####[facility] L[address]zrimhrw[address] [place], [place] [address]DrKianna Airam Tripathi RBC 3.28 106/ul Critically low 4.20-5.40 [facility] Comment on above: Performed By: #### C BC ####[facility] Rxwyiyrjon3125[address] [place], [place] [address]DrKianna Airam Tripathi WBC 8.6 103/ul Normal 4.0-11.0 [facility] Comment on above: Performed By: #### C BC ####[facility] Lgkggugsbd01[address] [place], [place] [address]DrKianna Tripathi PROF 14(COMP METB)on 023 Albumin [Mass/Vol] 3.0 g/dL Critically low 3.4-5.0 [facility] Comment on above: Performed By: #### C MP ####[facility] Bnwqtykcok3639 [place] [address]Dr. Selenaneil Deuce Albumin/Globulin [Mass ratio] 0.9 {ratio} Normal [facility] Comment on above: Performed By: #### C MP ####[facility] [place] [address] [place] [address]Dr. Airam Tripathi ALP [Catalytic activity/Vol] 184 U/L Critically high 46-116 [facility] Comment on above: Performed By: #### C MP ####[facility] [place] Nkpvy[address]acd[address] [place], [place] [address]Dr. Airam Tripathi ALT [Catalytic activity/Vol] 18 U/L Normal 14-59 [facility] Comment on above: Performed By: #### C MP ####[facility] [place] X[address]qjcdhra[address] [place], [place] [address]Dr. Airam Tripathi Anion gap [Moles/Vol] 11.2 mmol/L Normal [facility] Comment on above: Performed By: #### C MP ####[facility] [place] Zawflgeogz39[address] [place], [place] [address]Dr. Airam Tripathi AST [Catalytic activity/Vol] 19 U/L Normal 15-37 [facility] Comment on above: Performed By: #### C MP ####[facility] [place] Gnnagauihp[address] [place], [place] [address]Dr. Airam Tripathi Bilirubin [Mass/Vol] 0.3 mg/dL Normal 0.2-1.0 [facility] Comment on above: Performed By: #### C MP ####[facility] [place] Tsizcaxfhe[address] [place], [place] [address]Dr. Airam Tripathi Calcium [Mass/Vol] 8.8 mg/dL Normal 8.5-10.1 [facility] Comment on above: Performed By: #### C MP ####[facility] [place] Kevfakjjkh[address] [place], [place] [address]Dr. Airam Tripathi Chloride [Moles/Vol] 101 mmol/L Normal 98-107 [facility] [place] Comment on above: Performed By: #### C MP ####[facility] [place] [address] [place] [address]Dr. Airam Tripathi CO2 [Moles/Vol] 25.4 mmol/L Normal 21.0-32.0 [facility] [place] Comment on above: Performed By: #### C MP ####[facility] [place] [address]acek[address] [place] [address]Dr. Airam Tripathi Creatinine [Mass/Vol] 1.05 mg/dL Critically high 0.55-1.02 [facility] [place] Comment on above: Performed By: #### C MP ####[facility] [place] Cpdijnpkta98[address] [place], [place] [address]Dr. Airam Tripathi EGFR-AF PANAMANIAN >60 Normal >=60 [facility] [place] Comment on above: Performed By: #### C MP ####[facility] [place] Jrgghborfg3755[address] [place], [place] [address]Dr. Airam Deuce EGFR-NON AF PANAMANIAN 53 mL/min/1.73m2 Critically low >=60 [facility] Comment on above: Performed By: #### C MP ####[facility] [place] Yghiowmlxx29[address] [place], [place] [address]Dr. Airam Deuce Globulin (S) [Mass/Vol] 3.4 g/dL Normal [facility] Comment on above: Performed By: #### C MP ####[facility] [place] [address] [place] [address]Dr. Airam Deuce Glucose [Mass/Vol] 78 mg/dL Normal 74-106 [facility] Comment on above: Performed By: #### C MP ####[facility] [place] Xbqciddwpz126[address] [place], [place] [address]Dr. Airam Deuce Potassium [Moles/Vol] 4.6 mmol/L Normal 3.5-5.1 [facility] Comment on above: Performed By: #### C MP ####[facility] [place] Jixocxyumb0618[address] [place], [place] [address]Dr. Airam Tripathi Protein [Mass/Vol] 6.4 g/dL Normal 6.4-8.2 [facility] Comment on above: Performed By: #### C MP ####[facility] [place] Kpacodghyt78[address] [place], [place] [address]Dr. Airam Deuce Sodium [Moles/Vol] 133 mmol/L Critically low 136-145 [facility] Comment on above: Performed By: #### C MP ####[facility] [place] Ffugehpven14[address] [place], [place] [address]Dr. Airam Deuce Urea nitrogen [Mass/Vol] 26.0 mg/dL Critically high 7.0-18.0 [facility] Comment on above: Performed By: #### C MP ####[facility] [place] Nvtigsglfq28[address] [place], [place] [address]Dr. Selenaneil Tripathi Urea nitrogen/Creatinine [Mass ratio] 24.8 mg/mg Normal [facility] Comment on above: Performed By: #### C MP ####[facility] [place] Bovssvzmew[address] [place], [place] [address]DrKianna Tripathi OSMOLALITYon 07-29-2022 Osmolality [Osmolality] 287 mosm/kg Normal 275-295 [facility] Comment on above: Performed By: #### O SMO ####[facility] [place] Fbemboysab73[address] [place], [place] [address]Dr. Airam Deuce CBC AUTO DIFFon 07-27-2022 BASO # 0.0 103/ul Normal 0.0-0.1 [facility] Comment on above: Performed By: #### C BC ####[facility] [place] Iqcbpbrjyq1829[address] [place], [place] [address]Dr. Airam Tripathi Basophils/100 WBC (Bld) 0.4 % Normal 0.2-2.0 [facility] Comment on above: Performed By: #### C BC ####[facility] [place] Gxyvkkzaon[address] [place], [place] [address]Dr. Airam Tripathi EO # 0.2 103/ul Normal 0.0-0.7 [facility] Comment on above: Performed By: #### C BC ####[facility] [place] Zsdwmwxthi0407[address] [place], [place] [address]Dr. Airam Tripathi Eosinophils/100 WBC (Bld) 2.6 % Normal 0.9-7.0 [facility] Comment on above: Performed By: #### C BC ####[facility] [place] Irbwpbpapm38[address] [place], [place] [address]Dr. Airam Tripathi Erythrocyte distribution width (RBC) [Ratio] 14.2 % Normal 11.0-15.0 [facility] Comment on above: Performed By: #### C BC ####[facility] [place] Osyltcdrtm[address] [place], [place] [address]DrKianna Tripathi Hematocrit (Bld) [Volume fraction] 31.3 % Critically low 36.0-48.0 [facility] Comment on above: Performed By: #### C BC ####[facility] [place] Yfhzmtajae[address] [place], [place] [address]DrKianna Tripathi Hemoglobin (Bld) [Mass/Vol] 9.3 g/dL Critically low 12.0-16.0 [facility] Comment on above: Performed By: #### C BC ####[facility] [place] Wqmeiryecs7927[address] [place], [place] [address]Dr. Airam Tripathi IG # 0.05 10e3/ul Critically high 0.00-0.03 [facility] Comment on above: Performed By: #### C BC ####[facility] [place] Fdylzwzoek[address] [place], [place] [address]DrKianna rTipathi IG % 0.7 % Critically high 0.0-0.5 [facility] Comment on above: Performed By: #### C BC ####[facility] [place] Blormhusdd9[address] [place], [place] [address]DrKianna Tripathi LYMPH # 1.0 103/ul Critically low 1.2-3.8 [facility] Comment on above: Performed By: #### C BC ####[facility] [place] Doqslrnyyv5[address] [place], [place] [address]DrKianna Tripathi Lymphocytes/100 WBC (Bld) 13.4 % Critically low 20.5-60.0 [facility] Comment on above: Performed By: #### C BC ####[facility] [place] Tlscjnttzl[address] [place], [place] [address]DrKianna Tripathi MANUAL DIFF REQ NO Normal [facility] Comment on above: Performed By: #### C BC ####[facility] [place] [address] [place] [address]DrKianna Tripathi MCH (RBC) [Entitic mass] 28.8 pg Normal 26.7-34.0 [facility] Comment on above: Performed By: #### C BC ####[facility] [place] [address]qc[address] [place] [address]DrKianna Tripathi MCHC (RBC) [Mass/Vol] 29.7 g/dL Critically low 29.9-35.2 [facility] Comment on above: Performed By: #### C BC ####[facility] [place] Hqygsfdwtq646[address] [place], [place] [address]DrKianna Tripathi MCV (RBC) [Entitic vol] 96.9 fL Normal 81.0-99.0 [facility] Comment on above: Performed By: #### C BC ####[facility] [place] Sjwciyajxl[address] [place], [place] [address]DrKianna Tripathi MONO # 0.5 103/ul Normal 0.3-0.8 [facility] Comment on above: Performed By: #### C BC ####[facility] [place] Ejsipglyvu[address] [place], [place] [address]DrKianna Tripathi Monocytes/100 WBC (Bld) 6.3 % Normal 1.7-12.0 [facility] Comment on above: Performed By: #### C BC ####[facility] [place] Vllnclwxvv12[address] [place], [place] [address]DrKianna Tripathi NEUT # 5.8 103/ul Normal 1.4-6.5 [facility] Comment on above: Performed By: #### C BC ####[facility] [place] Y[address]qcsqryfl236[address] [place], [place] [address]DrKianna Tripathi Neutrophils/100 WBC (Bld) 76.6 % Critically high 43.0-75.0 [facility] Comment on above: Performed By: #### C BC ####[facility] [place] Oojcnfaugv[address]34[address] [place], [place] [address]DrKianna Tripathi Platelet mean volume (Bld) [Entitic vol] 10.3 fL Normal 9.5-13.5 [facility] Comment on above: Performed By: #### C BC ####[facility] [place] [address] [place] [address]Dr. Airam Tripathi PLT 265 103/ul Normal 150-450 [facility] Comment on above: Performed By: #### C BC ####[facility] [address]azya[address] [place] [address]Dr. Airam Tripathi RBC 3.23 106/ul Critically low 4.20-5.40 [facility] Comment on above: Performed By: #### C BC ####[facility] [address]avyqvd[address] [place] [address]Dr. Airam Tripathi WBC 7.6 103/ul Normal 4.0-11.0 [facility] Comment on above: Performed By: #### C BC ####[facility] Tsxhrlhbtq[address] [place], [place] [address]DrKianna Tripathi PROF 14(COMP METB)on 023 Albumin [Mass/Vol] 2.9 g/dL Critically low 3.4-5.0 Th [facility] Comment on above: Performed By: #### C MP ####[facility] Fhunglytyc05[address] [place], [place] [address]Dr. Airam Tripathi Albumin/Globulin [Mass ratio] 0.8 {ratio} Normal [facility] Comment on above: Performed By: #### C MP ####[facility] [place] Bjdqvpwqjy2032[address] [place], [place] [address]Dr. Airam Tripathi ALP [Catalytic activity/Vol] 175 U/L Critically high 46-116 [facility] Comment on above: Performed By: #### C MP ####[facility] Qwzbiofsyf[address] [place], [place] [address]DrKianna Tripathi ALT [Catalytic activity/Vol] 24 U/L Normal 14-59 [facility] Comment on above: Performed By: #### C MP ####[facility] Kqmuknturk6[address] [place], [place] [address]Dr. Airam Tripathi Anion gap [Moles/Vol] 14.3 mmol/L Normal Th e [facility] Comment on above: Performed By: #### C MP ####[facility] [address]gt[address] [place] [address]Dr. Airam Tripathi AST [Catalytic activity/Vol] 25 U/L Normal 15-37 [facility] Comment on above: Performed By: #### C MP ####[facility] Njwjadcczo3318[address] [place], [place] [address]Dr. Selenaneil Tripathi Bilirubin [Mass/Vol] 0.2 mg/dL Normal 0.2-1.0 [facility] Comment on above: Performed By: #### C MP ####[facility] Xuquhenkjf[address] [place], [place] [address]Dr. Airam Tripathi Calcium [Mass/Vol] 8.6 mg/dL Normal 8.5-10.1 [facility] Comment on above: Performed By: #### C MP ####[facility] [place] Pxaezlacmu5[address] [place], [place] [address]Dr. Airam Tripathi Chloride [Moles/Vol] 102 mmol/L Normal 98-107 [facility] Comment on above: Performed By: #### C MP ####[facility] [place] Melglwaahm9[address] [place], [place] [address]Dr. Airam Tripathi CO2 [Moles/Vol] 23.7 mmol/L Normal 21.0-32.0 [facility] Comment on above: Performed By: #### C MP ####[facility] Fvliygmohe3934[address] [place], [place] [address]Dr. Airam Tripathi Creatinine [Mass/Vol] 1.29 mg/dL Critically high 0.55-1.02 [facility] Comment on above: Performed By: #### C MP ####[facility] [place] Bctuahsvwi7767[address] [place], [place] [address]Dr. Airam Tripathi EGFR-AF PANAMANIAN 51 mL/min/1.73m2 Critically low >=60 [facility] Comment on above: Performed By: #### C MP ####[facility] Nosxvxjpoc[address] [place], [place] [address]Dr. Airam Tripathi EGFR-NON AF PANAMANIAN 42 mL/min/1.73m2 Critically low >=60 [facility] Comment on above: Performed By: #### C MP ####[facility] [address]trso[address]dsq[address] [place] [address]Dr. Airam Tripathi Globulin (S) [Mass/Vol] 3.6 g/dL Normal [facility] Comment on above: Performed By: #### C MP ####[facility] [place] Kwczbbwbdb454[address] [place], [place] [address]Dr. Airam Tripathi Glucose [Mass/Vol] 84 mg/dL Normal 74-106 [facility] Comment on above: Performed By: #### C MP ####[facility] Tacovwwcmf7[address] [place], [place] [address]Dr. Airam Tripathi Potassium [Moles/Vol] 5.0 mmol/L Normal 3.5-5.1 [facility] Comment on above: Performed By: #### C MP ####[facility] [place] Qyhukgtbay020[address] [place], [place] [address]Dr. Airam Tripathi Protein [Mass/Vol] 6.5 g/dL Normal 6.4-8.2 [facility] Comment on above: Performed By: #### C MP ####[facility] [place] Wquvzcojaq08[address] [place], [place] [address]Dr. Airam Tripathi Sodium [Moles/Vol] 135 mmol/L Critically low 136-145 [facility] Comment on above: Performed By: #### C MP ####[facility] Vyggbdgjbr[address] [place], [place] [address]Dr. Airam Tripathi Urea nitrogen [Mass/Vol] 28.0 mg/dL Critically high 7.0-18.0 [facility] Comment on above: Performed By: #### C MP ####[facility] Vyilcqegul2[address] [place], [place] [address]Dr. Airam Tripathi Urea nitrogen/Creatinine [Mass ratio] 21.7 mg/mg Normal [facility] Comment on above: Performed By: #### C MP ####[facility] Fjwtncsslt7[address] [place], [place] [address]Dr. Airam Tripathi XR LSPINE MIN 4 VIEWSon 02-0 XR LSPINE MIN 4 VIEWS Normal [facility] OSMOLALITYon 07-24-2022 Osmolality [Osmolality] 279 mosm/kg Normal 275-295 [facility] Comment on above: Performed By: #### O SMO ####[facility] [address] [place] [address]Dr. Airam Tripathi CBC AUTO DIFFon 07-21-2022 BASO # 0.0 103/ul Normal 0.0-0.1 [facility] Comment on above: Performed By: #### C BC ####[facility] Ssgfymjmie756[address] [place], [place] [address]Dr. Airam Tripathi Basophils/100 WBC (Bld) 0.4 % Normal 0.2-2.0 [facility] Comment on above: Performed By: #### C BC ####[facility] Tcjwszhczg0313[address] [place], [place] [address]Dr. Airam Tripathi EO # 0.2 103/ul Normal 0.0-0.7 [facility] Comment on above: Performed By: #### C BC ####[facility] Sufuasznze[address] [place], [place] [address]Dr. Airam Tripathi Eosinophils/100 WBC (Bld) 2.3 % Normal 0.9-7.0 [facility] Comment on above: Performed By: #### C BC ####[facility] Perdmfvokn5[address] [place], [place] [address]Dr. Airam Tripathi Erythrocyte distribution width (RBC) [Ratio] 13.6 % Normal 11.0-15.0 [facility] Comment on above: Performed By: #### C BC ####[facility] Nffpayxumc[address] [place], [place] [address]Dr. Airam Tripathi Hematocrit (Bld) [Volume fraction] 32.6 % Critically low 36.0-48.0 [facility] Comment on above: Performed By: #### C BC ####[facility] Rntmffttyr[address] [place], [place] [address]Dr. Airam Tripathi Hemoglobin (Bld) [Mass/Vol] 9.5 g/dL Critically low 12.0-16.0 [facility] Comment on above: Performed By: #### C BC ####[facility] [address] [place] [id number]. Airam Tripathi IG # 0.03 10e3/ul Normal 0.00-0.03 [facility] Comment on above: Performed By: #### C BC ####[facility] [address]cwrhf[address] [place] [id number]. Airam Tripathi IG % 0.4 % Normal 0.0-0.5 [facility] Comment on above: Performed By: #### C BC ####[facility] [address]qxd[address] [place] [address]Dr. Airam Deuce LYMPH # 1.4 103/ul Normal 1.2-3.8 [facility] Comment on above: Performed By: #### C BC ####[facility] [address]ju[address] [place] [address]Dr. Airam Tripathi Lymphocytes/100 WBC (Bld) 18.2 % Critically low 20.5-60.0 [facility] Comment on above: Performed By: #### C BC ####[facility] [address]beq[address] [place] [address]Dr. Selenaneil Tripathi MANUAL DIFF REQ NO Normal [facility] Comment on above: Performed By: #### C BC ####[facility] [address]yssp[address] [place] [id number]. Airam Deuce MCH (RBC) [Entitic mass] 29.5 pg Normal 26.7-34.0 [facility] Comment on above: Performed By: #### C BC ####[facility] Wcilxtpqcp20[address] [place] [id number]. Airam Tripathi MCHC (RBC) [Mass/Vol] 29.1 g/dL Critically low 29.9-35.2 [facility] Comment on above: Performed By: #### C BC ####[facility] Ehertdflhe[address] [place] [id number]. Airam Deuce MCV (RBC) [Entitic vol] 101.2 fL Critically high 81.0-99.0 [facility] Comment on above: Performed By: #### C BC ####[facility] [address]me[address]bxzkqr[address] [place] [id number]. Airam Tripathi MONO # 0.6 103/ul Normal 0.3-0.8 [facility] Comment on above: Performed By: #### C BC ####[facility] [address]zl[address] [place] [id number]. Airam Tripathi Monocytes/100 WBC (Bld) 7.9 % Normal 1.7-12.0 [facility] Comment on above: Performed By: #### C BC ####[facility] Z[address]sdcqf[address] [place] [id number]. Airam Tripathi NEUT # 5.5 103/ul Normal 1.4-6.5 [facility] Comment on above: Performed By: #### C BC ####[facility] [address]zbexx[address] [place] [address]Dr. Airam Tripathi Neutrophils/100 WBC (Bld) 70.8 % Normal 43.0-75.0 [facility] Comment on above: Performed By: #### C BC ####[facility] [address]izvcehp[address] [place] [id number]. Airam Tripathi Platelet mean volume (Bld) [Entitic vol] 9.6 fL Normal 9.5-13.5 [facility] Comment on above: Performed By: #### C BC ####[facility] [address]iwsngfiq[address] [place] [phone]. Airam Tripathi PLT 265 103/ul Normal 150-450 [facility] Comment on above: Performed By: #### C BC ####[facility] Aqsqjlihix6[address] [place] [id number]. Airam Tripathi RBC 3.22 106/ul Critically low 4.20-5.40 [facility] Comment on above: Performed By: #### C BC ####[facility] Riignkxymx[address] [place] [id number]. Airam Tripathi WBC 7.8 103/ul Normal 4.0-11.0 [facility] Comment on above: Performed By: #### C BC ####[facility] Qdradlglrl[address] [place] [address]Dr. Airam Tripathi PROF 14(COMP METB)on 023 Albumin [Mass/Vol] 2.9 g/dL Critically low 3.4-5.0 [facility] Comment on above: Performed By: #### C MP ####[facility] [address]bmglaoonh4[address] [place] [address]Dr. Airam Tripathi Albumin/Globulin [Mass ratio] 0.9 {ratio} Normal [facility] Comment on above: Performed By: #### C MP ####[facility] Vfecrocomf[address] [place], [place] [address]Dr. Airam Tripathi ALP [Catalytic activity/Vol] 176 U/L Critically high 46-116 [facility] Comment on above: Performed By: #### C MP ####[facility] Oduawuwriu[address] [place], [place] [address]Dr. Airam Tripathi ALT [Catalytic activity/Vol] 19 U/L Normal 14-59 [facility] Comment on above: Performed By: #### C MP ####[facility] Zshhhhqhkd45[address] [place], [place] [address]Dr. Airam Tripathi Anion gap [Moles/Vol] 12.6 mmol/L Normal [facility] Comment on above: Performed By: #### C MP ####[facility] Vkdbiyhygt14[address] [place], [place] [address]Dr. Airam Tripathi AST [Catalytic activity/Vol] 25 U/L Normal 15-37 [facility] Comment on above: Performed By: #### C MP ####[facility] Yvtiwtsnjt2[address] [place], [place] [address]Dr. Airam Tripathi Bilirubin [Mass/Vol] 0.2 mg/dL Normal 0.2-1.0 [facility] Comment on above: Performed By: #### C MP ####[facility] Xosvyllvfg[address] [place], [place] [address]Dr. Airam Tripathi Calcium [Mass/Vol] 8.5 mg/dL Normal 8.5-10.1 [facility] Comment on above: Performed By: #### C MP ####[facility] Tu[address]uxjcfd[address] [place] [id number]. Airam Tripathi Chloride [Moles/Vol] 101 mmol/L Normal 98-107 [facility] Comment on above: Performed By: #### C MP ####[facility] O[address]joiaytc34[address] [place] [phone]. Airam Tripathi CO2 [Moles/Vol] 25.9 mmol/L Normal 21.0-32.0 [facility] Comment on above: Performed By: #### C MP ####[facility] [address]ufhwgil[address] [place] [phone]. Airam Tripathi Creatinine [Mass/Vol] 1.11 mg/dL Critically high 0.55-1.02 [facility] Comment on above: Performed By: #### C MP ####[facility] [address]fdlkk[address] [place] [address]Dr. Airam Tripathi EGFR-AF PANAMANIAN >60 Normal >=60 [facility] Comment on above: Performed By: #### C MP ####[facility] Angtjlsvad[address] [place] [address]Dr. Airam Tripathi EGFR-NON AF PANAMANIAN 50 mL/min/1.73m2 Critically low >=60 [facility] Comment on above: Performed By: #### C MP ####[facility] Tprvrrtzkj9[address] [place] [address]Dr. Airam Tripathi Globulin (S) [Mass/Vol] 3.2 g/dL Normal [facility] Comment on above: Performed By: #### C MP ####[facility] Ycoqwyiczx[address] [place] [address]Dr. Airam Tripathi Glucose [Mass/Vol] 80 mg/dL Normal 74-106 [facility] Comment on above: Performed By: #### C MP ####[facility] Zmwuksrlxn35[address] [place] [address]Dr. Airam Tripathi Potassium [Moles/Vol] 3.5 mmol/L Normal 3.5-5.1 [facility] Comment on above: Performed By: #### C MP ####[facility] [address]phxzfgo25[address] [place] [address]Dr. Airam Tripathi Protein [Mass/Vol] 6.1 g/dL Critically low 6.4-8.2 Th e [facility] Comment on above: Performed By: #### C MP ####[facility] Yaskbtvgto[address] [place], [place] [address]Dr. Airma Tripathi Sodium [Moles/Vol] 136 mmol/L Normal 136-145 [facility] Comment on above: Performed By: #### C MP ####[facility] [address]lifgkljrh[address] [place], [place] [address]Dr. Airam Tripathi Urea nitrogen [Mass/Vol] 31.0 mg/dL Critically high 7.0-18.0 [facility] Comment on above: Performed By: #### C MP ####[facility] Ocmgpiuybt[address] [place], [place] [address]Dr. Airam Tripathi Urea nitrogen/Creatinine [Mass ratio] 27.9 mg/mg Normal [facility] Comment on above: Performed By: #### C MP ####[facility] Htuqljilxd09[address] [place], [place] [address]Dr. Airam Tripathi OSMOLALITYon 07-19-2022 Osmolality [Osmolality] 285 mosm/kg Normal 275-295 [facility] Comment on above: Performed By: #### O SMO ####[facility] Ihthcrwoae837[address] [place], [place] [address]Dr. Airam Tripathi CBC AUTO DIFFon 07-15-2022 BASO # 0.0 103/ul Normal 0.0-0.1 [facility] Comment on above: Performed By: #### C BC ####[facility] Reqpuxqteh5544[address] [place], [place] [address]Dr. Airam Deuce Basophils/100 WBC (Bld) 0.2 % Normal 0.2-2.0 [facility] Comment on above: Performed By: #### C BC ####[facility] Cudzciethz3[address] [place], [place] [address]Dr. Airam Deuce EO # 0.1 103/ul Normal 0.0-0.7 [facility] Comment on above: Performed By: #### C BC ####[facility] Dreuruxxwh30[address] [place] [id number]. Airam Tripathi Eosinophils/100 WBC (Bld) 1.4 % Normal 0.9-7.0 [facility] Comment on above: Performed By: #### C BC ####[facility] Kttpkwuliv7140 [place] [id number]. Airam Tripathi Erythrocyte distribution width (RBC) [Ratio] 13.0 % Normal 11.0-15.0 [facility] Comment on above: Performed By: #### C BC ####[facility] Rtzlwyiztv5[address] [place], [place] [id number]. Airam Tripathi Hematocrit (Bld) [Volume fraction] 29.3 % Critically low 36.0-48.0 [facility] Comment on above: Performed By: #### C BC ####[facility] Ytlrzkqpuc3307[address] [place], [place] [address]Dr. Airam Tripathi Hemoglobin (Bld) [Mass/Vol] 10.3 g/dL Critically low 12.0-16.0 [facility] Comment on above: Performed By: #### C BC ####[facility] Vujgwkyllr23[address] [place], [place] [address]Dr. Airam Tripathi IG # 0.05 10e3/ul Critically high 0.00-0.03 [facility] Comment on above: Performed By: #### C BC ####[facility] Whgxxychqt3000[address] [place], [place] [address]Dr. Airam Tripathi IG % 0.6 % Critically high 0.0-0.5 [facility] Comment on above: Performed By: #### C BC ####[facility] Ptwnyonmvm9[address] [place], [place] [id number]. Airam Tripathi LYMPH # 0.9 103/ul Critically low 1.2-3.8 [facility] Comment on above: Performed By: #### C BC ####[facility] Urpdkffvrp818933 [address] [place], [place] [address]Dr. Airam Tripathi Lymphocytes/100 WBC (Bld) 10.6 % Critically low 20.5-60.0 [facility] Comment on above: Performed By: #### C BC ####[facility] Z[address]uaruihv3[address] [place] [address]Dr. Airam Tripathi MANUAL DIFF REQ NO Normal [facility] Comment on above: Performed By: #### C BC ####[facility] Qndcmwqeyh4462 [place] [phone]. Airam Tripathi MCH (RBC) [Entitic mass] 29.3 pg Normal 26.7-34.0 [facility] Comment on above: Performed By: #### C BC ####[facility] Uaeszbsbyb8735[address] [place], [place] [address]Dr. Airam Tripathi MCHC (RBC) [Mass/Vol] 35.2 g/dL Normal 29.9-35.2 [facility] Comment on above: Performed By: #### C BC ####[facility] Synirirztw5784[address] [place], [place] [address]Dr. Selenaneil Tripathi MCV (RBC) [Entitic vol] 83.5 fL Normal 81.0-99.0 [facility] Comment on above: Performed By: #### C BC ####[facility] Dqfdcjqcjj5313[address] [place], [place] [address]Dr. Airam Tripathi MONO # 0.5 103/ul Normal 0.3-0.8 [facility] Comment on above: Performed By: #### C BC ####[facility] Scaexbzlzl0830[address] [place], [place] [address]Dr. Selenaneil Tripathi Monocytes/100 WBC (Bld) 5.1 % Normal 1.7-12.0 [facility] Comment on above: Performed By: #### C BC ####[facility] Tcretsqghu7577[address] [place], [place] [address]Dr. Airam Tripathi NEUT # 7.3 103/ul Critically high 1.4-6.5 [facility] Comment on above: Performed By: #### C BC ####[facility] Ylsknctnpc735[address] [place], [place] [address]Dr. Airam Deuce Neutrophils/100 WBC (Bld) 82.1 % Critically high 43.0-75.0 [facility] Comment on above: Performed By: #### C BC ####[facility] Z[address]skdelaz34[address] [place] [address]Dr. Airam Tripathi Platelet mean volume (Bld) [Entitic vol] 8.9 fL Critically low 9.5-13.5 [facility] Comment on above: Performed By: #### C BC ####[facility] Jvlnzvxalo42[address] [place] [address]Dr. Airam Tripathi PLT 290 103/ul Normal 150-450 [facility] Comment on above: Performed By: #### C BC ####[facility] Icgdymvefq8558 [place] [address]Dr. Airam Tripathi RBC 3.51 106/ul Critically low 4.20-5.40 [facility] Comment on above: Performed By: #### C BC ####[facility] Hxvkhjouuw4170[address] [place], [place] [address]Dr. Airam Tripathi WBC 8.9 103/ul Normal 4.0-11.0 [facility] Comment on above: Performed By: #### C BC ####[facility] Lmfuydrldy3218[address] [place], [place] [address]Dr. Airam Tripathi PROF 14(COMP METB)on 023 Albumin [Mass/Vol] 3.2 g/dL Critically low 3.4-5.0 [facility] Comment on above: Performed By: #### C MP ####[facility] Tboxymfsjf8723[address] [place], [place] [address]Dr. Airam Tripathi Albumin/Globulin [Mass ratio] 0.9 {ratio} Normal [facility] Comment on above: Performed By: #### C MP ####[facility] Sphglpwxll553[address] [place], [place] [address]Dr. Airam Tripathi ALP [Catalytic activity/Vol] 194 U/L Critically high 46-116 [facility] Comment on above: Performed By: #### C MP ####[facility] Vwfeuqhids[address] [place] [address]Dr. Airam Tripathi ALT [Catalytic activity/Vol] 19 U/L Normal 14-59 [facility] Comment on above: Performed By: #### C MP ####[facility] Kwifstsrsm8627 [place] [phone]. Airam Tripathi Anion gap [Moles/Vol] 11.3 mmol/L Normal [facility] Comment on above: Performed By: #### C MP ####[facility] Eepotihhum5465 [place] [phone]. Airam Tripathi AST [Catalytic activity/Vol] 24 U/L Normal 15-37 [facility] Comment on above: Performed By: #### C MP ####[facility] Ieobhpbdai5962 [place] [phone]. Airam Tripathi Bilirubin [Mass/Vol] 0.2 mg/dL Normal 0.2-1.0 [facility] Comment on above: Performed By: #### C MP ####[facility] Vafciyewre9[address] [place], [place] [address]Dr. Airam Tripathi Calcium [Mass/Vol] 8.7 mg/dL Normal 8.5-10.1 [facility] Comment on above: Performed By: #### C MP ####[facility] Oiiqvdulth97[address] [place], [place] [address]Dr. Airam Tripathi Chloride [Moles/Vol] 101 mmol/L Normal 98-107 [facility] Comment on above: Performed By: #### C MP ####[facility] Ubayojpfip[address] [place], [place] [address]Dr. Airam Tripahti CO2 [Moles/Vol] 27.2 mmol/L Normal 21.0-32.0 [facility] Comment on above: Performed By: #### C MP ####[facility] Ppoxjsgpcv65[address] [place] [address]Dr. Airam Tripathi Creatinine [Mass/Vol] 1.17 mg/dL Critically high 0.55-1.02 [facility] Comment on above: Performed By: #### C MP ####[facility] Hivsxhmuup3842 [place] [phone]. Airam Tripathi EGFR-AF PANAMANIAN 57 mL/min/1.73m2 Critically low >=60 [facility] Comment on above: Performed By: #### C MP ####[facility] Gmbpwkcanc4908 [place] [phone]. Airam Tripathi EGFR-NON AF PANAMANIAN 47 mL/min/1.73m2 Critically low >=60 [facility] Comment on above: Performed By: #### C MP ####[facility] Icxvbuxwmo4394 [place] [phone]. Airam Tripathi Globulin (S) [Mass/Vol] 3.5 g/dL Normal [facility] Comment on above: Performed By: #### C MP ####[facility] Wiiwejgfoo3640 [place] [phone]. Airam Tripathi Glucose [Mass/Vol] 86 mg/dL Normal 74-106 [facility] Comment on above: Performed By: #### C MP ####[facility] Wfsxoqkcsk7048 [place] [phone]. Airam Tripathi Potassium [Moles/Vol] 5.5 mmol/L Critically high 3.5-5.1 [facility] Comment on above: Performed By: #### C MP ####[facility] Atphtebina4530 [place] [phone]. Airam Tripathi Protein [Mass/Vol] 6.7 g/dL Normal 6.4-8.2 [facility] Comment on above: Performed By: #### C MP ####[facility] Ssiqabjwnm0362 [place] [phone]. Airam Tripathi Sodium [Moles/Vol] 134 mmol/L Critically low 136-145 [facility] Comment on above: Performed By: #### C MP ####[facility] Znmwuelkvj8222 [place] [phone]. Airam Tripathi Urea nitrogen [Mass/Vol] 26.0 mg/dL Critically high 7.0-18.0 [facility] Comment on above: Performed By: #### C MP ####[facility] Pyvxcmkjpr5788 [place] [phone]. Airam Tripathi Urea nitrogen/Creatinine [Mass ratio] 22.2 mg/mg Normal [facility] Comment on above: Performed By: #### C MP ####[facility] Aeavpbkieq0158 [place] [address]Dr. Airam Tripathi OSMOLALITYon 07-08-2022 Osmolality [Osmolality] 273 mosm/kg Critically low 275-295 [facility] Comment on above: Performed By: #### O SMO ####[facility] Rvkqnbzlnd[address] [place], [place] [address]Dr. Airam Deuce CBC AUTO DIFFon 07-07-2022 BASO # 0.0 103/ul Normal 0.0-0.1 [facility] Comment on above: Performed By: #### C BC ####[facility] Eqfzwyelqo014333 [address] [place], [place] [address]Dr. Airam Tripathi Basophils/100 WBC (Bld) 0.4 % Normal 0.2-2.0 [facility] Comment on above: Performed By: #### C BC ####[facility] Nzsthogboc27[address] [place], [place] [address]Dr. Airam Tripathi EO # 0.1 103/ul Normal 0.0-0.7 [facility] Comment on above: Performed By: #### C BC ####[facility] Wcecjtlxpm6286[address] [place], [place] [address]Dr. Airam Tripathi Eosinophils/100 WBC (Bld) 1.6 % Normal 0.9-7.0 [facility] Comment on above: Performed By: #### C BC ####[facility] Mceulluaqi2928[address] [place], [place] [address]Dr. Airam Tripathi Erythrocyte distribution width (RBC) [Ratio] 13.1 % Normal 11.0-15.0 [facility] Comment on above: Performed By: #### C BC ####[facility] Iuufjplfeh93[address] [place], [place] [address]Dr. Airam Tripathi Hematocrit (Bld) [Volume fraction] 33.7 % Critically low 36.0-48.0 [facility] Comment on above: Performed By: #### C BC ####[facility] Gyoduqsjwv1086[address] [place], [place] [address]Dr. Airam Tripathi Hemoglobin (Bld) [Mass/Vol] 9.9 g/dL Critically low 12.0-16.0 [facility] Comment on above: Performed By: #### C BC ####[facility] Qgzzqpjzem1462 [place] [address]Dr. Airam Tripathi IG # 0.05 10e3/ul Critically high 0.00-0.03 [facility] Comment on above: Performed By: #### C BC ####[facility] Htldytkrop2251 [place] [address]Dr. Airam Tripathi IG % 0.6 % Critically high 0.0-0.5 [facility] Comment on above: Performed By: #### C BC ####[facility] Mfkpnbtvlg6880 [place] [address]Dr. Airam Tripathi LYMPH # 1.2 103/ul Normal 1.2-3.8 [facility] Comment on above: Performed By: #### C BC ####[facility] Qylatpymfv9813 [place] [address]Dr. Airam Tripathi Lymphocytes/100 WBC (Bld) 15.5 % Critically low 20.5-60.0 [facility] Comment on above: Performed By: #### C BC ####[facility] Giuqtnpruj4992 [place] [address]DrKianna Tripathi MANUAL DIFF REQ NO Normal [facility] Comment on above: Performed By: #### C BC ####[facility] Jxrihguwin4964 [place] [address]Dr. Airam Tripathi MCH (RBC) [Entitic mass] 28.7 pg Normal 26.7-34.0 [facility] Comment on above: Performed By: #### C BC ####[facility] Uuvgjpulik3[address] [place] [address]Dr. Airam Tripathi MCHC (RBC) [Mass/Vol] 29.4 g/dL Critically low 29.9-35.2 [facility] Comment on above: Performed By: #### C BC ####[facility] Bfrqnroorz0955 [place] [address]Dr. Airam Tripathi MCV (RBC) [Entitic vol] 97.7 fL Normal 81.0-99.0 [facility] Comment on above: Performed By: #### C BC ####[facility] Vftgzvfydh8900 [place] [phone]. Airam Tripathi MONO # 0.6 103/ul Normal 0.3-0.8 [facility] Comment on above: Performed By: #### C BC ####[facility] Cacepoybbs8925 [place] [phone]. Airam Tripathi Monocytes/100 WBC (Bld) 7.7 % Normal 1.7-12.0 [facility] Comment on above: Performed By: #### C BC ####[facility] Wgqtgjomzb2842 [place] [phone]. Airam Tripathi NEUT # 5.9 103/ul Normal 1.4-6.5 [facility] Comment on above: Performed By: #### C BC ####[facility] Fzyyadcajg25[address] [place], [place] [address]Dr. Airam Tripathi Neutrophils/100 WBC (Bld) 74.2 % Normal 43.0-75.0 [facility] Comment on above: Performed By: #### C BC ####[facility] Ngdfwvshyn1595 [place] [phone]. Airam Tripathi Platelet mean volume (Bld) [Entitic vol] 9.4 fL Critically low 9.5-13.5 [facility] Comment on above: Performed By: #### C BC ####[facility] Svdogtlfey5482 [place] [phone]. Airam Tripathi PLT 331 103/ul Normal 150-450 [facility] Comment on above: Performed By: #### C BC ####[facility] Nklaaanrel1671 [place] [phone]. Airam Tripathi RBC 3.45 106/ul Critically low 4.20-5.40 [facility] Comment on above: Performed By: #### C BC ####[facility] Cbyuvlidnz7660 [place] [phone]. Airam Tripathi WBC 7.9 103/ul Normal 4.0-11.0 [facility] Comment on above: Performed By: #### C BC ####[facility] Gjravbqemx4679 [place] [address]Dr. Airam Tripathi PROF 14(COMP METB)on 023 Albumin [Mass/Vol] 3.4 g/dL Normal 3.4-5.0 [facility] Comment on above: Performed By: #### C MP ####[facility] Ehgksjebph3420 [place] [address]Dr. Airam Tripathi Albumin/Globulin [Mass ratio] 1.1 {ratio} Normal [facility] Comment on above: Performed By: #### C MP ####[facility] Ewbvzxurmm399[address] [place], [place] [address]Dr. Airam Tripathi ALP [Catalytic activity/Vol] 197 U/L Critically high 46-116 [facility] Comment on above: Performed By: #### C MP ####[facility] Afamgtzkva407133 [address] [place], [place] [address]Dr. Airam Tripathi ALT [Catalytic activity/Vol] 18 U/L Normal 14-59 [facility] Comment on above: Performed By: #### C MP ####[facility] Jbnapxvude7609[address] [place], [place] [address]Dr. Airam Tripathi Anion gap [Moles/Vol] 12.3 mmol/L Normal [facility] Comment on above: Performed By: #### C MP ####[facility] Uoirxntkkh1737[address] [place], [place] [address]Dr. Airam Tripathi AST [Catalytic activity/Vol] 26 U/L Normal 15-37 [facility] Comment on above: Performed By: #### C MP ####[facility] Gldhyjnjiw587[address] [place], [place] [address]Dr. Airam Tripathi Bilirubin [Mass/Vol] 0.3 mg/dL Normal 0.2-1.0 [facility] Comment on above: Performed By: #### C MP ####[facility] Mixevcmibd377233 [address] [place], [place] [address]Dr. Airam Tripathi Calcium [Mass/Vol] 8.6 mg/dL Normal 8.5-10.1 [facility] Comment on above: Performed By: #### C MP ####[facility] Tjbakqyrhj6051 [place] [address]Dr. Airam Tripathi Chloride [Moles/Vol] 96 mmol/L Critically low 98-107 [facility] Comment on above: Performed By: #### C MP ####[facility] Vqbueesmgz1716 [place] [phone]. Airam Tripathi CO2 [Moles/Vol] 27.8 mmol/L Normal 21.0-32.0 [facility] Comment on above: Performed By: #### C MP ####[facility] Lrekcpatcz2576[address] [place], [place] [address]Dr. Airam Tripathi Creatinine [Mass/Vol] 1.55 mg/dL Critically high 0.55-1.02 [facility] Comment on above: Performed By: #### C MP ####[facility] Cnxyvwcqbs183[address] [place], [place] [address]Dr. Airam Tripathi EGFR-AF PANAMANIAN 41 mL/min/1.73m2 Critically low >=60 [facility] Comment on above: Performed By: #### C MP ####[facility] Ufvgizgzsn788[address] [place], [place] [address]Dr. Airam Tripathi EGFR-NON AF PANAMANIAN 34 mL/min/1.73m2 Critically low >=60 [facility] Comment on above: Performed By: #### C MP ####[facility] Iwmntsgwyi998333 [address] [place], [place] [address]Dr. Airam Tripathi Globulin (S) [Mass/Vol] 3.2 g/dL Normal [facility] Comment on above: Performed By: #### C MP ####[facility] Qatvguessz5722[address] [place], [place] [address]Dr. Airam Tripathi Glucose [Mass/Vol] 87 mg/dL Normal 74-106 [facility] Comment on above: Performed By: #### C MP ####[facility] Feraafdnrq468333 [address] [place], [place] [address]Dr. Airam Tripathi Potassium [Moles/Vol] 5.1 mmol/L Normal 3.5-5.1 [facility] Comment on above: Performed By: #### C MP ####[facility] Lzeqkjzbuf2621 [place] [address]Dr. Airam Tripathi Protein [Mass/Vol] 6.6 g/dL Normal 6.4-8.2 [facility] Comment on above: Performed By: #### C MP ####[facility] Wgayuyicaj3199[address] [place], [place] [address]Dr. Airam Tripathi Sodium [Moles/Vol] 131 mmol/L Critically low 136-145 [facility] Comment on above: Performed By: #### C MP ####[facility] Ljxnhzxunp6850[address] [place], [place] [address]Dr. Airam Deuce Urea nitrogen [Mass/Vol] 31.0 mg/dL Critically high 7.0-18.0 [facility] Comment on above: Performed By: #### C MP ####[facility] Brjqmyvneg3796[address] [place], [place] [address]Dr. Airam Deuce Urea nitrogen/Creatinine [Mass ratio] 20.0 mg/mg Normal [facility] Comment on above: Performed By: #### C MP ####[facility] Xkujclrenr1444[address] [place], [place] [address]Dr. Airam Tripathi OSMOLALITYon 07-02-2022 Osmolality [Osmolality] 281 mosm/kg Normal 275-295 [facility] Comment on above: Performed By: #### O SMO ####[facility] Rybalbsani394[address] [place], [place] [address]Dr. Airam Deuce CBC AUTO DIFFon 06-29-2022 BASO # 0.0 103/ul Normal 0.0-0.1 [facility] Comment on above: Performed By: #### C BC ####[facility] Wwgxxdfwsf549[address] [place], [place] [address]Dr. Airam Deuce Basophils/100 WBC (Bld) 0.3 % Normal 0.2-2.0 [facility] Comment on above: Performed By: #### C BC ####[facility] Zcpgiqamsf1265[address] [place], [place] [address]Dr. Airam Tripathi EO # 0.2 103/ul Normal 0.0-0.7 [facility] Comment on above: Performed By: #### C BC ####[facility] Qxiimlbwhg7544 [place] [address]Dr. Airam Tripathi Eosinophils/100 WBC (Bld) 2.3 % Normal 0.9-7.0 [facility] Comment on above: Performed By: #### C BC ####[facility] Kjlnfnjnvv8137 [place] [address]Dr. Airam Tripathi Erythrocyte distribution width (RBC) [Ratio] 13.2 % Normal 11.0-15.0 [facility] Comment on above: Performed By: #### C BC ####[facility] Wshaeabmng9396 [place] [address]Dr. Airam Tripathi Hematocrit (Bld) [Volume fraction] 28.2 % Critically low 36.0-48.0 [facility] Comment on above: Performed By: #### C BC ####[facility] Ifjuujeqfy9769[address] [place], [place] [address]Dr. Airam Tripathi Hemoglobin (Bld) [Mass/Vol] 9.1 g/dL Critically low 12.0-16.0 [facility] Comment on above: Performed By: #### C BC ####[facility] Yklfhcliqr198[address] [place], [place] [address]Dr. Airam Tripathi IG # 0.03 10e3/ul Normal 0.00-0.03 [facility] Comment on above: Performed By: #### C BC ####[facility] Akepqogzjs1077[address] [place], [place] [address]Dr. Airam Tripathi IG % 0.4 % Normal 0.0-0.5 [facility] Comment on above: Performed By: #### C BC ####[facility] Cggxrdhpug5906[address] [place], [place] [address]Dr. Airam Tripathi LYMPH # 1.0 103/ul Critically low 1.2-3.8 [facility] Comment on above: Performed By: #### C BC ####[facility] Bolteicobi[address] [place], [place] [address]Dr. Airam Tripathi Lymphocytes/100 WBC (Bld) 12.8 % Critically low 20.5-60.0 [facility] Comment on above: Performed By: #### C BC ####[facility] Uzvkvsdvvk1849 [place] [address]DrKianna Tripathi MANUAL DIFF REQ NO Normal [facility] Comment on above: Performed By: #### C BC ####[facility] Oovwcvpncd8586 [place] [phone]. Airam Tripathi MCH (RBC) [Entitic mass] 29.9 pg Normal 26.7-34.0 [facility] Comment on above: Performed By: #### C BC ####[facility] Brwvvdvwzp7376 [place] [address]Dr. Airam Tripathi MCHC (RBC) [Mass/Vol] 32.3 g/dL Normal 29.9-35.2 [facility] Comment on above: Performed By: #### C BC ####[facility] Smtybyewbe[address] [place], [place] [address]Dr. Airam Tripathi MCV (RBC) [Entitic vol] 92.8 fL Normal 81.0-99.0 [facility] Comment on above: Performed By: #### C BC ####[facility] Z[address]kyx[address]wf[address] [place], [place] [address]DrKianna Tripathi MONO # 0.5 103/ul Normal 0.3-0.8 [facility] Comment on above: Performed By: #### C BC ####[facility] Zbfrzeffdg16[address] [place], [place] [address]Dr. Airam Tripathi Monocytes/100 WBC (Bld) 6.0 % Normal 1.7-12.0 [facility] Comment on above: Performed By: #### C BC ####[facility] Ihvlxgsfmt4020[address] [place], [place] [address]DrKianna Tripathi NEUT # 6.0 103/ul Normal 1.4-6.5 [facility] Comment on above: Performed By: #### C BC ####[facility] Bxogpsfbfo[address] [place], [place] [address]DrKianna Tripathi Neutrophils/100 WBC (Bld) 78.2 % Critically high 43.0-75.0 [facility] Comment on above: Performed By: #### C BC ####[facility] [address]xcaqrue[address] [place] [address]DrKianna Tripathi Platelet mean volume (Bld) [Entitic vol] 9.0 fL Critically low 9.5-13.5 [facility] Comment on above: Performed By: #### C BC ####[facility] [address]csxeyvvrg[address] [place] [address]DrKianna Tripathi PLT 332 103/ul Normal 150-450 [facility] Comment on above: Performed By: #### C BC ####[facility] Ehqeonwygv3476 [place] [address]DrKianna Tripathi RBC 3.04 106/ul Critically low 4.20-5.40 [facility] Comment on above: Performed By: #### C BC ####[facility] Epnbvoqzxf8359 [place] [address]DrKianna Tripathi WBC 7.7 103/ul Normal 4.0-11.0 [facility] Comment on above: Performed By: #### C BC ####[facility] Nuuxmdyenf[address] [place] [id number]. Airam Tripathi PROF 14(COMP METB)on 023 Albumin [Mass/Vol] 3.2 g/dL Critically low 3.4-5.0 [facility] Comment on above: Performed By: #### C MP ####[facility] Dchdljqieo9783 [place] [address]DrKianna Tripathi Albumin/Globulin [Mass ratio] 0.9 {ratio} Normal [facility] Comment on above: Performed By: #### C MP ####[facility] Bhjywkozuy5[address] [place] [id number] Tripathi ALP [Catalytic activity/Vol] 135 U/L Critically high 46-116 [facility] Comment on above: Performed By: #### C MP ####[facility] Xuoomcokpj3630 [place] [phone] Tripathi ALT [Catalytic activity/Vol] 25 U/L Normal 14-59 [facility] Comment on above: Performed By: #### C MP ####[facility] Iwihuxeohs9735 [place] [phone]. Airam Tripathi Anion gap [Moles/Vol] 9.1 mmol/L Normal [facility] Comment on above: Performed By: #### C MP ####[facility] Lmedfbskbf2184 [place] [phone]. Airam Tripathi AST [Catalytic activity/Vol] 34 U/L Normal 15-37 [facility] Comment on above: Performed By: #### C MP ####[facility] Bvqbxgznmm5029 [place] [phone]. Airam Deuce Bilirubin [Mass/Vol] 0.3 mg/dL Normal 0.2-1.0 [facility] Comment on above: Performed By: #### C MP ####[facility] Vsowcvbcan3388 [place] [phone]. Airam Deuce Calcium [Mass/Vol] 8.6 mg/dL Normal 8.5-10.1 [facility] Comment on above: Performed By: #### C MP ####[facility] Gzlnfjejhd2686 [place] [phone]. Airam Deuce Chloride [Moles/Vol] 99 mmol/L Normal 98-107 [facility] Comment on above: Performed By: #### C MP ####[facility] Inecfcuemv0872 [place] [phone]. Airam Deuce CO2 [Moles/Vol] 29.1 mmol/L Normal 21.0-32.0 [facility] Comment on above: Performed By: #### C MP ####[facility] Omssrybnjd1134 [place] [phone]. Airam Deuce Creatinine [Mass/Vol] 1.40 mg/dL Critically high 0.55-1.02 [facility] Comment on above: Performed By: #### C MP ####[facility] Bpatmqepfm1134 [place] [phone]. Airam Deuce EGFR-AF PANAMANIAN 46 mL/min/1.73m2 Critically low >=60 [facility] Comment on above: Performed By: #### C MP ####[facility] Ogalkgugam1358 [place] [phone]. Airam Tripathi EGFR-NON AF PANAMANIAN 38 mL/min/1.73m2 Critically low >=60 [facility] Comment on above: Performed By: #### C MP ####[facility] Pibpkgsiqw8249 [place] [phone]. Airam Tripathi Globulin (S) [Mass/Vol] 3.4 g/dL Normal [facility] Comment on above: Performed By: #### C MP ####[facility] Xufgxrmsqx1400 [place] [phone]. Airam Tripathi Glucose [Mass/Vol] 83 mg/dL Normal 74-106 [facility] Comment on above: Performed By: #### C MP ####[facility] Prdyudaqzo9123 [place] [phone]. Airam Deuce Potassium [Moles/Vol] 4.2 mmol/L Normal 3.5-5.1 [facility] Comment on above: Performed By: #### C MP ####[facility] Twbwggufye0671 [place] [phone]. Airam Tripathi Protein [Mass/Vol] 6.6 g/dL Normal 6.4-8.2 [facility] Comment on above: Performed By: #### C MP ####[facility] Amkghwblpj4215 [place] [phone]. Airam Tripathi Sodium [Moles/Vol] 133 mmol/L Critically low 136-145 [facility] Comment on above: Performed By: #### C MP ####[facility] Evbhtzzrtp7193 [place] [phone]. Airam Tripathi Urea nitrogen [Mass/Vol] 37.0 mg/dL Critically high 7.0-18.0 [facility] Comment on above: Performed By: #### C MP ####[facility] Pvolmpeblh2106 [place] [phone]. Airam Deuce Urea nitrogen/Creatinine [Mass ratio] 26.4 mg/mg Normal [facility] Comment on above: Performed By: #### C MP ####[facility] Fovupgmtaj7843 [place] [address]Dr. Airam Tripathi BNPon 06-18-2022 Natriuretic peptide B (Bld) [Mass/Vol] 5826.0 pg/mL Critically high <=900.0 [facility] Comment on above: Performed By: #### B CONTENT STRATEGIST, CMP ####[facility] Zdxknwyivv8107[address] [place], [place] [address]Dr. Airam Deuce CBC AUTO DIFFon 06-18-2022 BASO # 0.0 103/ul Normal 0.0-0.1 [facility] Comment on above: Performed By: #### C BC ####[facility] Vaouyiqcuz4885[address] [place], [place] [address]Dr. Airam Tripathi Basophils/100 WBC (Bld) 0.4 % Normal 0.2-2.0 [facility] Comment on above: Performed By: #### C BC ####[facility] Azyponcmbj462[address] [place], [place] [address]Dr. Airam Tripathi EO # 0.1 103/ul Normal 0.0-0.7 [facility] Comment on above: Performed By: #### C BC ####[facility] Gqiqsmluft0559[address] [place], [place] [address]Dr. Airam Deuce Eosinophils/100 WBC (Bld) 1.3 % Normal 0.9-7.0 [facility] Comment on above: Performed By: #### C BC ####[facility] Jzqbduzyfz8738[address] [place], [place] [address]Dr. Airam Tripathi Erythrocyte distribution width (RBC) [Ratio] 13.4 % Normal 11.0-15.0 [facility] Comment on above: Performed By: #### C BC ####[facility] Wwvljohuqi2650[address] [place], [place] [address]DrKianna Tripathi Hematocrit (Bld) [Volume fraction] 27.3 % Critically low 36.0-48.0 [facility] Comment on above: Performed By: #### C BC ####[facility] Ojxntdfkcy1946[address] [place], [place] [address]Dr. Selenaneil Deuce Hemoglobin (Bld) [Mass/Vol] 8.6 g/dL Critically low 12.0-16.0 [facility] Comment on above: Performed By: #### C BC ####[facility] Yuvonkmzxj1132 [place] [address]Dr. Selenaneil Tripathi IG # 0.08 10e3/ul Critically high 0.00-0.03 [facility] Comment on above: Performed By: #### C BC ####[facility] Xkeprgmzrt4906 [place] [address]Dr. Selenaneil Tripathi IG % 0.8 % Critically high 0.0-0.5 [facility] Comment on above: Performed By: #### C BC ####[facility] Xginjnwwmv4458 [place] [address]DrKianna Tripathi LYMPH # 1.9 103/ul Normal 1.2-3.8 [facility] Comment on above: Performed By: #### C BC ####[facility] Jtblxqlnsb8514[address] [place], [place] [address]DrKianna Tripathi Lymphocytes/100 WBC (Bld) 19.3 % Critically low 20.5-60.0 [facility] Comment on above: Performed By: #### C BC ####[facility] Wwaujjlwgo4606 [place] [address]DrKianna Selenaneil Tripathi MANUAL DIFF REQ NO Normal [facility] Comment on above: Performed By: #### C BC ####[facility] Ackenqygvp5724 [place] [address]DrKianna Airam Deuce MCH (RBC) [Entitic mass] 29.6 pg Normal 26.7-34.0 [facility] Comment on above: Performed By: #### C BC ####[facility] Ncaduzpmsq100[address] [place], [place] [address]DrKianna Tripathi MCHC (RBC) [Mass/Vol] 31.5 g/dL Normal 29.9-35.2 [facility] Comment on above: Performed By: #### C BC ####[facility] Cuvqzuqznm6511[address] [place], [place] [address]Dr. Airam Deuce MCV (RBC) [Entitic vol] 93.8 fL Normal 81.0-99.0 [facility] Comment on above: Performed By: #### C BC ####[facility] Jpsapvvkgo8165 [place] [address]Dr. Airam Tripathi MONO # 0.6 103/ul Normal 0.3-0.8 [facility] Comment on above: Performed By: #### C BC ####[facility] Toalycwsru249[address] [place], [place] [address]Dr. Airam Deuce Monocytes/100 WBC (Bld) 6.5 % Normal 1.7-12.0 [facility] Comment on above: Performed By: #### C BC ####[facility] Utaubiairh57[address] [place], [place] [address]Dr. Airam Tripathi NEUT # 6.9 103/ul Critically high 1.4-6.5 [facility] Comment on above: Performed By: #### C BC ####[facility] Uqtsgaoruw3755[address] [place], [place] [address]Dr. Airam Deuce Neutrophils/100 WBC (Bld) 71.7 % Normal 43.0-75.0 [facility] Comment on above: Performed By: #### C BC ####[facility] Cilgioqmmq6969[address] [place], [place] [address]Dr. Airam Deuce Platelet mean volume (Bld) [Entitic vol] 8.5 fL Critically low 9.5-13.5 [facility] Comment on above: Performed By: #### C BC ####[facility] Zxgjpeqtyb6458[address] [place], [place] [address]Dr. Selenaneil Deuce PLT 295 103/ul Normal 150-450 [facility] Comment on above: Performed By: #### C BC ####[facility] Koxvbjcrdp027[address] [place], [place] [address]DrKianna Tripathi RBC 2.91 106/ul Critically low 4.20-5.40 [facility] Comment on above: Performed By: #### C BC ####[facility] Yfqbgwodvv7748[address] [place], [place] [address]DrKianna Tripathi WBC 9.7 103/ul Normal 4.0-11.0 [facility] Comment on above: Performed By: #### C BC ####[facility] Hbginajrvz3940[address] [place], [place] [address]Dr. Airam Tripathi PROF 14(COMP METB)on 06-18-2 022 Albumin [Mass/Vol] 2.8 g/dL Critically low 3.4-5.0 [facility] Comment on above: Performed By: #### B CONTENT STRATEGIST, CMP ####[facility] Tfruhictty04[address] [place], [place] [address]Dr. Airam Tripathi Albumin/Globulin [Mass ratio] 0.9 {ratio} Normal [facility] Comment on above: Performed By: #### B CONTENT STRATEGIST, CMP ####[facility] Fseseaeitc2169[address] [place], [place] [address]Dr. Airam Tripathi ALP [Catalytic activity/Vol] 125 U/L Critically high 46-116 [facility] Comment on above: Performed By: #### B CONTENT STRATEGIST, CMP ####[facility] Rpindfkmku8145[address] [place], [place] [address]Dr. Airam Tripathi ALT [Catalytic activity/Vol] 16 U/L Normal 14-59 [facility] Comment on above: Performed By: #### B CONTENT STRATEGIST, CMP ####[facility] Hvfxnjidhd8393 [place] [address]Dr. Airam Tripathi Anion gap [Moles/Vol] 11.4 mmol/L Normal [facility] Comment on above: Performed By: #### B CONTENT STRATEGIST, CMP ####[facility] Zdafykprfn274[address] [place], [place] [address]Dr. Airam Tripathi AST [Catalytic activity/Vol] 23 U/L Normal 15-37 [facility] Comment on above: Performed By: #### B CONTENT STRATEGIST, CMP ####[facility] Tyllptjibq963[address] [place], [place] [address]Dr. Airam Tripathi Bilirubin [Mass/Vol] 0.2 mg/dL Normal 0.2-1.0 [facility] Comment on above: Performed By: #### B CONTENT STRATEGIST, CMP ####[facility] Wwohijynut550[address] [place], [place] [address]Dr. Airam Tripathi Calcium [Mass/Vol] 8.1 mg/dL Critically low 8.5-10.1 [facility] Comment on above: Performed By: #### B CONTENT STRATEGIST, CMP ####[facility] Justwatrre1332[address] [place], [place] [address]Dr. Airam Tripathi Chloride [Moles/Vol] 96 mmol/L Critically low 98-107 [facility] Comment on above: Performed By: #### B CONTENT STRATEGIST, CMP ####[facility] Hkxksatwze4894[address] [place], [place] [address]Dr. Airam Tripathi CO2 [Moles/Vol] 26.6 mmol/L Normal 21.0-32.0 [facility] Comment on above: Performed By: #### B CONTENT STRATEGIST, CMP ####[facility] Twbedirjiu0030[address] [place], [place] [address]Dr. Airam Tripathi Creatinine [Mass/Vol] 1.31 mg/dL Critically high 0.55-1.02 [facility] Comment on above: Performed By: #### B CONTENT STRATEGIST, CMP ####[facility] Fqefscagyw754[address] [place], [place] [address]Dr. Airam Tripathi EGFR-AF PANAMANIAN 50 mL/min/1.73m2 Critically low >=60 [facility] Comment on above: Performed By: #### B CONTENT STRATEGIST, CMP ####[facility] Zmidvjiokc1560[address] [place], [place] [address]Dr. Airam Tripathi EGFR-NON AF PANAMANIAN 41 mL/min/1.73m2 Critically low >=60 [facility] Comment on above: Performed By: #### B CONTENT STRATEGIST, CMP ####[facility] Kvcvgdabzz1189[address] [place], [place] [address]Dr. Airam Tripathi Globulin (S) [Mass/Vol] 3.0 g/dL Normal [facility] Comment on above: Performed By: #### B CONTENT STRATEGIST, CMP ####[facility] Wrzupyxcif9332[address] [place], [place] [address]Dr. Airam Tripathi Glucose [Mass/Vol] 82 mg/dL Normal 74-106 [facility] Comment on above: Performed By: #### B CONTENT STRATEGIST, CMP ####[facility] Nxpcskegyf7263 [place] [address]Dr. Airam Tripathi Potassium [Moles/Vol] 4.0 mmol/L Normal 3.5-5.1 [facility] Comment on above: Performed By: #### B CONTENT STRATEGIST, CMP ####[facility] Adauoopsmo279[address] [place], [place] [address]Dr. Airam Tripathi Protein [Mass/Vol] 5.8 g/dL Critically low 6.4-8.2 [facility] Comment on above: Performed By: #### B CONTENT STRATEGIST, CMP ####[facility] Fofsicuzol549[address] [place], [place] [address]Dr. Airam Tripathi Sodium [Moles/Vol] 130 mmol/L Critically low 136-145 [facility] Comment on above: Performed By: #### B CONTENT STRATEGIST, CMP ####[facility] Yxnjsxqoav0869[address] [place], [place] [address]Dr. Airam Tripathi Urea nitrogen [Mass/Vol] 19.0 mg/dL Critically high 7.0-18.0 [facility] Comment on above: Performed By: #### B CONTENT STRATEGIST, CMP ####[facility] [address]fr[address]ww[address] [place] [address]. Airam Tripathi Urea nitrogen/Creatinine [Mass ratio] 14.5 mg/mg Normal [facility] Comment on above: Performed By: #### B CONTENT STRATEGIST, CMP ####[facility] Tuyzaqybmj9107[address] [place], [place] [address]Dr. Airam Tripathi BNPon 06-17-2022 Natriuretic peptide B (Bld) [Mass/Vol] 2510.0 pg/mL Critically high <=900.0 [facility] Comment on above: Performed By: #### B CONTENT STRATEGIST, CMP ####[facility] Goecmnmcml0610[address] [place], [place] [address]Dr. Airam Tripathi CBC AUTO DIFFon 06-17-2022 BASO # 0.0 103/ul Normal 0.0-0.1 [facility] Comment on above: Performed By: #### C BC ####[facility] Zelpvzqzdb[address] [place] [address]. Airam Tripathi Basophils/100 WBC (Bld) 0.4 % Normal 0.2-2.0 [facility] Comment on above: Performed By: #### C BC ####[facility] Orcibqsfwl3855[address] [place], [place] [address]Dr. Airam Tripathi EO # 0.0 103/ul Normal 0.0-0.7 [facility] Comment on above: Performed By: #### C BC ####[facility] Gorszenuqh7112[address] [place], [place] [address]Dr. Airam Tripathi Eosinophils/100 WBC (Bld) 0.3 % Critically low 0.9-7.0 [facility] Comment on above: Performed By: #### C BC ####[facility] Qbckztmppe2738[address] [place], [place] [address]Dr. Airam Tripathi Erythrocyte distribution width (RBC) [Ratio] 13.6 % Normal 11.0-15.0 [facility] Comment on above: Performed By: #### C BC ####[facility] Bdavumuibd2420[address] [place], [place] [address]Dr. Airam Tripathi Hematocrit (Bld) [Volume fraction] 28.9 % Critically low 36.0-48.0 [facility] Comment on above: Performed By: #### C BC ####[facility] Klfxpozkyg1005[address] [place], [place] [address]Dr. Airam Tripathi Hemoglobin (Bld) [Mass/Vol] 8.9 g/dL Critically low 12.0-16.0 [facility] Comment on above: Performed By: #### C BC ####[facility] Mjjfamrhlr05[address] [place], [place] [address]Dr. Airam Tripathi IG # 0.10 10e3/ul Critically high 0.00-0.03 [facility] Comment on above: Performed By: #### C BC ####[facility] Duyhmdxsfs8413[address] [place], [place] [address]Dr. Airam Tripathi IG % 1.3 % Critically high 0.0-0.5 [facility] Comment on above: Performed By: #### C BC ####[facility] Bocenmtmtv36[address] [place] [id number]. Airam Tripathi LYMPH # 0.7 103/ul Critically low 1.2-3.8 [facility] Comment on above: Performed By: #### C BC ####[facility] Pthnjbwbfb7213 [place] [id number]. Airam Tripathi Lymphocytes/100 WBC (Bld) 8.1 % Critically low 20.5-60.0 [facility] Comment on above: Performed By: #### C BC ####[facility] Afyaxlflgu0750 [place] [address]Dr. Airam Deuce MANUAL DIFF REQ NO Normal [facility] Comment on above: Performed By: #### C BC ####[facility] Yjhoxpcnwm9248 [place] [address]Dr. Airam Deuce MCH (RBC) [Entitic mass] 29.4 pg Normal 26.7-34.0 [facility] Comment on above: Performed By: #### C BC ####[facility] Lkowqvwran1348 [place] [address]Dr. Airam Tripathi MCHC (RBC) [Mass/Vol] 30.8 g/dL Normal 29.9-35.2 [facility] Comment on above: Performed By: #### C BC ####[facility] Szmzapkyeb5339 [place] [id number]. Airam Tripathi MCV (RBC) [Entitic vol] 95.4 fL Normal 81.0-99.0 [facility] Comment on above: Performed By: #### C BC ####[facility] Dgxfcdxqqk2200 [place] [address]Dr. Airam Deuce MONO # 0.3 103/ul Normal 0.3-0.8 [facility] Comment on above: Performed By: #### C BC ####[facility] Vjhgpgitqw4775 [place] [address]Dr. Airam Deuce Monocytes/100 WBC (Bld) 3.1 % Normal 1.7-12.0 [facility] Comment on above: Performed By: #### C BC ####[facility] Jwszrmdddt7478 [place] [id number]. Airam Tripathi NEUT # 7.0 103/ul Critically high 1.4-6.5 [facility] Comment on above: Performed By: #### C BC ####[facility] Qwpfewsacr6938 [place] [address]Dr. Airam Tripathi Neutrophils/100 WBC (Bld) 86.8 % Critically high 43.0-75.0 [facility] Comment on above: Performed By: #### C BC ####[facility] Fkzerxcguv6482 [place] [address]Dr. Airam Tripathi Platelet mean volume (Bld) [Entitic vol] 8.3 fL Critically low 9.5-13.5 [facility] Comment on above: Performed By: #### C BC ####[facility] Fjuvydakjy6198 [place] [address]Dr. Airam Tripathi PLT 279 103/ul Normal 150-450 [facility] Comment on above: Performed By: #### C BC ####[facility] Lhsqfgpvof7312 [place] [address]Dr. Airam Deuce RBC 3.03 106/ul Critically low 4.20-5.40 [facility] Comment on above: Performed By: #### C BC ####[facility] Grvqzfndgr2354 [place] [address]Dr. Airam Tripathi WBC 8.0 103/ul Normal 4.0-11.0 [facility] Comment on above: Performed By: #### C BC ####[facility] Cfvaumohda1631 [place] [address]Dr. Airam Tripathi PROF 14(COMP METB)on 022 Albumin [Mass/Vol] 2.8 g/dL Critically low 3.4-5.0 [facility] Comment on above: Performed By: #### B CONTENT STRATEGIST, CMP ####[facility] Lfijpwvpdf2151 [place] [address]Dr. Airam Tripathi Albumin/Globulin [Mass ratio] 0.9 {ratio} Normal [facility] Comment on above: Performed By: #### B CONTENT STRATEGIST, CMP ####[facility] Rryiyifxxx4742 [place] [phone]. Airam Tripathi ALP [Catalytic activity/Vol] 136 U/L Critically high 46-116 [facility] Comment on above: Performed By: #### B CONTENT STRATEGIST, CMP ####[facility] Triwbepeve9571 [place] [phone]. Airam Tripathi ALT [Catalytic activity/Vol] 17 U/L Normal 14-59 [facility] Comment on above: Performed By: #### B CONTENT STRATEGIST, CMP ####[facility] Lcpvybehgv[address] [place], [place] [id number]. Airam Tripathi Anion gap [Moles/Vol] 12.9 mmol/L Normal [facility] Comment on above: Performed By: #### B CONTENT STRATEGIST, CMP ####[facility] Tdurfcsrmb34[address] [place], [place] [address]Dr. Airam Tripathi AST [Catalytic activity/Vol] 24 U/L Normal 15-37 [facility] Comment on above: Performed By: #### B CONTENT STRATEGIST, CMP ####[facility] [address]mxdhxqslz[address] [place] [address]Dr. Airam Tripathi Bilirubin [Mass/Vol] 0.2 mg/dL Normal 0.2-1.0 [facility] Comment on above: Performed By: #### B CONTENT STRATEGIST, CMP ####[facility] Shbegokh[address] [place], [place] [id number]. Airam Tripathi Calcium [Mass/Vol] 8.7 mg/dL Normal 8.5-10.1 [facility] Comment on above: Performed By: #### B CONTENT STRATEGIST, CMP ####[facility] [address] [place] [address]Dr. Airam Tripathi Chloride [Moles/Vol] 102 mmol/L Normal 98-107 [facility] Comment on above: Performed By: #### B CONTENT STRATEGIST, CMP ####[facility] T[address]zozfbma[address] [place], [place] [address]Dr. Selenaneil Tripathi CO2 [Moles/Vol] 23.8 mmol/L Normal 21.0-32.0 [facility] Comment on above: Performed By: #### B CONTENT STRATEGIST, CMP ####[facility] Amywcdnssj[address] [place] [address]Dr. Airam Tripathi Creatinine [Mass/Vol] 1.08 mg/dL Critically high 0.55-1.02 [facility] Comment on above: Performed By: #### B CONTENT STRATEGIST, CMP ####[facility] [address]haag[address] [place] [address]Dr. Airam Tripathi EGFR-AF PANAMANIAN >60 Normal >=60 [facility] Comment on above: Performed By: #### B CONTENT STRATEGIST, CMP ####[facility] [address]yvrpjiu[address] [place] [address]Dr. Airam Tripathi EGFR-NON AF PANAMANIAN 52 mL/min/1.73m2 Critically low >=60 [facility] Comment on above: Performed By: #### B CONTENT STRATEGIST, CMP ####[facility] Jmtidxuion[address] [place], [place] [address]Dr. Airam Tripathi Globulin (S) [Mass/Vol] 3.2 g/dL Normal [facility] Comment on above: Performed By: #### B CONTENT STRATEGIST, CMP ####[facility] Cmrehcdurh[address] [place], [place] [address]Dr. Airam Tripathi Glucose [Mass/Vol] 99 mg/dL Normal 74-106 [facility] Comment on above: Performed By: #### B CONTENT STRATEGIST, CMP ####[facility] Liljyianxz64[address] [place], [place] [address]Dr. Airam Tripathi Potassium [Moles/Vol] 4.7 mmol/L Normal 3.5-5.1 [facility] Comment on above: Performed By: #### B CONTENT STRATEGIST, CMP ####[facility] Nwjbyedjeb[address] [place], [place] [address]Dr. Airam Tripathi Protein [Mass/Vol] 6.0 g/dL Critically low 6.4-8.2 [facility] Comment on above: Performed By: #### B CONTENT STRATEGIST, CMP ####[facility] Btmsonqynj[address] [place], [place] [address]Dr. Selenaneil Tripathi Sodium [Moles/Vol] 134 mmol/L Critically low 136-145 [facility] Comment on above: Performed By: #### B CONTENT STRATEGIST, CMP ####[facility] Fbptjdamxm[address] [place], [place] [address]Dr. Airam Tripathi Urea nitrogen [Mass/Vol] 19.0 mg/dL Critically high 7.0-18.0 [facility] Comment on above: Performed By: #### B CONTENT STRATEGIST, CMP ####[facility] Cemnrwjpjv[address] [place], [place] [address]Dr. Airam Tripathi Urea nitrogen/Creatinine [Mass ratio] 17.6 mg/mg Normal [facility] Comment on above: Performed By: #### B CONTENT STRATEGIST, CMP ####[facility] Cvuealxfzc44[address] [place], [place] [address]Dr. Airam Deuce PROTIMEon 06-17-2022 INR Coag (PPP) [Relative time] 1.00 {INR} Normal [facility] Comment on above: Performed By: #### P T ####[facility] Ebxwywvzza[address] [place], [place] [address]Dr. Selenaneil Tripathi INR GUIDELINES SEE BELOW Normal [facility] Comment on above: Result Comment: SIDRA RED INR: 2.0 - 3.0 CONDITIONS NOT LISTED BELOW 2.5 - 3.5 FOR PROSTHETIC HEART VALVE REPLACEMENT 2.5 - 3.5 RECURRENT THROMBOSIS Performed By: #### P T ####[facility] Yurgznrcqz348[address] [place], [place] [address]Dr. Airam Tripathi PT Coag (PPP) [Time] 10.8 s Normal 9.0-11.6 [facility] Comment on above: Performed By: #### P T ####[facility] Kazyuknucq[address] [place], [place] [address]Dr. Selenaneil Tripathi PTTon 06-17-2022 aPTT Coag (Bld) [Time] 27.2 s Normal 22.3-36.2 [facility] Comment on above: Performed By: #### P TT ####[facility] Uqegsuksrj05[address] [place], [place] [address]Dr. Airam Tripathi BNPon 06-16-2022 Natriuretic peptide B (Bld) [Mass/Vol] 2293.0 pg/mL Critically high <=900.0 [facility] Comment on above: Performed By: #### C MP, BNP ####[facility] Gtgwnqyelf3117[address] [place], [place] [address]Dr. Airam Tripathi CBC AUTO DIFFon 06-16-2022 BASO # 0.0 103/ul Normal 0.0-0.1 [facility] Comment on above: Performed By: #### C BC ####[facility] Saisphmnef[address] [place], [place] [address]Dr. Airam Tripathi Basophils/100 WBC (Bld) 0.4 % Normal 0.2-2.0 [facility] Comment on above: Performed By: #### C BC ####[facility] Qndfggbwis95[address] [place], [place] [address]Dr. Airam Tripathi EO # 0.2 103/ul Normal 0.0-0.7 [facility] Comment on above: Performed By: #### C BC ####[facility] Tthwrwgolo8[address] [place], [place] [address]Dr. Airam Tripathi Eosinophils/100 WBC (Bld) 3.0 % Normal 0.9-7.0 [facility] Comment on above: Performed By: #### C BC ####[facility] Cmupeegrhy94[address] [place], [place] [address]Dr. Airam Tripathi Erythrocyte distribution width (RBC) [Ratio] 13.3 % Normal 11.0-15.0 [facility] Comment on above: Performed By: #### C BC ####[facility] Suhdjofbwj[address] [place], [place] [address]Dr. Airam Tripathi Hematocrit (Bld) [Volume fraction] 26.2 % Critically low 36.0-48.0 [facility] Comment on above: Performed By: #### C BC ####[facility] Tcimpufzqy8[address] [place], [place] [address]Dr. Airam Tripathi Hemoglobin (Bld) [Mass/Vol] 8.3 g/dL Critically low 12.0-16.0 [facility] Comment on above: Performed By: #### C BC ####[facility] Rsrairbkpe54[address] [place], [place] [address]DrKianna Tripathi IG # 0.08 10e3/ul Critically high 0.00-0.03 [facility] Comment on above: Performed By: #### C BC ####[facility] [address]kw[address] [place] [address]DrKianna Waltersneil Deuce IG % 1.1 % Critically high 0.0-0.5 [facility] Comment on above: Performed By: #### C BC ####[facility] [address] [place] [address]DrKianna Tripathi LYMPH # 1.2 103/ul Normal 1.2-3.8 [facility] Comment on above: Performed By: #### C BC ####[facility] Vtnfimcgyx74[address] [place], [place] [address]DrKianna Tripathi Lymphocytes/100 WBC (Bld) 17.3 % Critically low 20.5-60.0 [facility] Comment on above: Performed By: #### C BC ####[facility] Qwgnumlagq[address] [place], [place] [address]DrKianna Tripathi MANUAL DIFF REQ NO Normal [facility] Comment on above: Performed By: #### C BC ####[facility] Psdblowlwh[address] [place], [place] [address]DrKianna Tripathi MCH (RBC) [Entitic mass] 30.3 pg Normal 26.7-34.0 [facility] Comment on above: Performed By: #### C BC ####[facility] Sszogccadk26[address] [place], [place] [address]DrKianna Tripathi MCHC (RBC) [Mass/Vol] 31.7 g/dL Normal 29.9-35.2 [facility] Comment on above: Performed By: #### C BC ####[facility] Eamaginfcq3910[address] [place], [place] [address]DrKianna Tripathi MCV (RBC) [Entitic vol] 95.6 fL Normal 81.0-99.0 [facility] Comment on above: Performed By: #### C BC ####[facility] Tezozwfmje[address] [place], [place] [address]DrKianna Tripathi MONO # 0.5 103/ul Normal 0.3-0.8 [facility] Comment on above: Performed By: #### C BC ####[facility] [address] [place] [id number]. Airam Tripathi Monocytes/100 WBC (Bld) 7.1 % Normal 1.7-12.0 [facility] Comment on above: Performed By: #### C BC ####[facility] Psjbrggktm[address] [place] [address]Dr. Airam Tripathi NEUT # 5.0 103/ul Normal 1.4-6.5 [facility] Comment on above: Performed By: #### C BC ####[facility] Vtv[address]ixwuir[address] [place] [address]Dr. Airam Tripathi Neutrophils/100 WBC (Bld) 71.1 % Normal 43.0-75.0 [facility] Comment on above: Performed By: #### C BC ####[facility] Hrggadalvi0466[address] [place], [place] [address]Dr. Airam Tripathi Platelet mean volume (Bld) [Entitic vol] 8.2 fL Critically low 9.5-13.5 [facility] Comment on above: Performed By: #### C BC ####[facility] [address] [place] [address]Dr. Airam Tripathi PLT 247 103/ul Normal 150-450 [facility] Comment on above: Performed By: #### C BC ####[facility] [address]nsxd[address] [place] [id number]. Airam Tripathi RBC 2.74 106/ul Critically low 4.20-5.40 [facility] Comment on above: Performed By: #### C BC ####[facility] Urzzmnrosl[address] [place], [place] [address]Dr. Airam Tripathi WBC 7.1 103/ul Normal 4.0-11.0 [facility] Comment on above: Performed By: #### C BC ####[facility] Dypounjjta16[address] [place], [place] [address]DrKianna Airam Tripathi CTA CHEST WO W CONon 022 CTA CHEST WO W CON Normal [facility] PROF 14(COMP METB)on Albumin [Mass/Vol] 2.6 g/dL Critically low 3.4-5.0 [facility] Comment on above: Performed By: #### C MP, BNP ####[facility] Huggrxeesg[address] [place] [address]Dr. Airam Tripathi Albumin/Globulin [Mass ratio] 0.8 {ratio} Normal [facility] Comment on above: Performed By: #### C MP, BNP ####[facility] Wtpr[address]mbvzj24[address] [place] [address]Dr. Airam Tripathi ALP [Catalytic activity/Vol] 130 U/L Critically high 46-116 [facility] Comment on above: Performed By: #### C MP, BNP ####[facility] Fvvluqzilp8[address] [place], [place] [address]Dr. Airam Tripathi ALT [Catalytic activity/Vol] 12 U/L Critically low 14-59 [facility] Comment on above: Performed By: #### C MP, BNP ####[facility] Ueiwzsfrkl5[address] [place], [place] [address]Dr. Airam Tripathi Anion gap [Moles/Vol] 11.8 mmol/L Normal [facility] Comment on above: Performed By: #### C MP, BNP ####[facility] Ulezwjaotn23[address] [place], [place] [address]Dr. Airam Tripathi AST [Catalytic activity/Vol] 22 U/L Normal 15-37 [facility] Comment on above: Performed By: #### C MP, BNP ####[facility] Fremranlka8[address] [place], [place] [address]Dr. Airam Tripathi Bilirubin [Mass/Vol] 0.2 mg/dL Normal 0.2-1.0 [facility] Comment on above: Performed By: #### C MP, BNP ####[facility] Uxahvxwokn[address] [place], [place] [address]Dr. Airam Tripathi Calcium [Mass/Vol] 8.0 mg/dL Critically low 8.5-10.1 [facility] Comment on above: Performed By: #### C MP, BNP ####[facility] [address]xsgbmt[address] [place] [address]Dr. Airam Tripathi Chloride [Moles/Vol] 104 mmol/L Normal 98-107 [facility] Comment on above: Performed By: #### C MP, BNP ####[facility] Divkjnfblu2133 [place] [address]Dr. Airam Tripathi CO2 [Moles/Vol] 22.8 mmol/L Normal 21.0-32.0 [facility] Comment on above: Performed By: #### C MP, BNP ####[facility] Zyhrrsjoqa[address] [place], [place] [address]Dr. Airam Tripathi Creatinine [Mass/Vol] 1.07 mg/dL Critically high 0.55-1.02 [facility] Comment on above: Performed By: #### C MP, BNP ####[facility] Qjsmvmdtgv[address] [place], [place] [address]Dr. Airam Tripathi EGFR-AF PANAMANIAN >60 Normal >=60 [facility] Comment on above: Performed By: #### C MP, BNP ####[facility] Dbxjlxttit4[address] [place], [place] [address]Dr. Airam Tripathi EGFR-NON AF PANAMANIAN 52 mL/min/1.73m2 Critically low >=60 [facility] Comment on above: Performed By: #### C MP, BNP ####[facility] Djstqmxvoj8616[address] [place], [place] [address]Dr. Airam Tripathi Globulin (S) [Mass/Vol] 3.1 g/dL Normal [facility] Comment on above: Performed By: #### C MP, BNP ####[facility] Iiumysxvcg008[address] [place], [place] [address]Dr. Airam Tripathi Glucose [Mass/Vol] 85 mg/dL Normal 74-106 [facility] Comment on above: Performed By: #### C MP, BNP ####[facility] Oqnhdndphf378[address] [place], [place] [address]Dr. Airam Tripathi Potassium [Moles/Vol] 4.6 mmol/L Normal 3.5-5.1 [facility] Comment on above: Performed By: #### C MP, BNP ####[facility] Xndxvtubdz6147[address] [place], [place] [address]Dr. Airam Tripathi Protein [Mass/Vol] 5.7 g/dL Critically low 6.4-8.2 [facility] Comment on above: Performed By: #### C MP, BNP ####[facility] Ouzffhdiom[address] [place], [place] [address]Dr. Airam Tripathi Sodium [Moles/Vol] 134 mmol/L Critically low 136-145 [facility] Comment on above: Performed By: #### C MP, BNP ####[facility] Nlbalcvell9925[address] [place], [place] [address]Dr. Airam Tripathi Urea nitrogen [Mass/Vol] 24.0 mg/dL Critically high 7.0-18.0 [facility] Comment on above: Performed By: #### C MP, BNP ####[facility] Mqxzfadiae5395[address] [place], [place] [address]Dr. Airam Tripathi Urea nitrogen/Creatinine [Mass ratio] 22.4 mg/mg Normal [facility] Comment on above: Performed By: #### C MP, BNP ####[facility] Duvsocfxei1988[address] [place], [place] [address]Dr. Airam Tripathi BNPon 06-15-2022 Natriuretic peptide B (Bld) [Mass/Vol] 934.0 pg/mL Critically high <=900.0 [facility] Comment on above: Performed By: #### C MP, BNP ####[facility] Walkedtjvs6138[address] [place], [place] [address]Dr. Airam Tripathi CBC AUTO DIFFon 06-15-2022 BASO # 0.0 103/ul Normal 0.0-0.1 [facility] Comment on above: Performed By: #### C BC ####[facility] Yjqntvbrop4[address] [place], [place] [address]Dr. Airam Tripathi Basophils/100 WBC (Bld) 0.2 % Normal 0.2-2.0 [facility] Comment on above: Performed By: #### C BC ####[facility] [address]rf[address] [place] [id number]. Airam Tripathi EO # 0.1 103/ul Normal 0.0-0.7 [facility] Comment on above: Performed By: #### C BC ####[facility] [address]xbxubtrtz[address] [place] [address]Dr. Airam Tripathi Eosinophils/100 WBC (Bld) 2.1 % Normal 0.9-7.0 [facility] Comment on above: Performed By: #### C BC ####[facility] Gxnvtwtlta74[address] [place] [address]Dr. Airam Tripathi Erythrocyte distribution width (RBC) [Ratio] 12.9 % Normal 11.0-15.0 [facility] Comment on above: Performed By: #### C BC ####[facility] Cndrtqohhu[address] [place], [place] [address]Dr. Airam Tripathi Hematocrit (Bld) [Volume fraction] 24.9 % Critically low 36.0-48.0 [facility] Comment on above: Performed By: #### C BC ####[facility] [address]sffqkodh[address] [place], [place] [address]Dr. Airam Tripathi Hemoglobin (Bld) [Mass/Vol] 7.9 g/dL Critically low 12.0-16.0 [facility] Comment on above: Performed By: #### C BC ####[facility] Vhcuzkziar[address] [place], [place] [address]Dr. Airam Tripathi IG # 0.05 10e3/ul Critically high 0.00-0.03 [facility] Comment on above: Performed By: #### C BC ####[facility] Degnwkfenu84[address] [place], [place] [address]Dr. Airam Tripathi IG % 0.8 % Critically high 0.0-0.5 [facility] Comment on above: Performed By: #### C BC ####[facility] Uihoazlypg[address] [place], [place] [address]Dr. Selenaneil Tripathi LYMPH # 0.9 103/ul Critically low 1.2-3.8 [facility] Comment on above: Performed By: #### C BC ####[facility] [address]aolzw[address] [place] [id number]. Airam Tripathi Lymphocytes/100 WBC (Bld) 13.7 % Critically low 20.5-60.0 [facility] Comment on above: Performed By: #### C BC ####[facility] [address]rxlclsgn[address] [place] [id number]. Airam Tripathi MANUAL DIFF REQ NO Normal [facility] Comment on above: Performed By: #### C BC ####[facility] Iluvnvwuwb[address] [place] [id number]. Airam Tripathi MCH (RBC) [Entitic mass] 30.2 pg Normal 26.7-34.0 [facility] Comment on above: Performed By: #### C BC ####[facility] [address]yttrupjev[address] [place] [address]Dr. Airam Tripathi MCHC (RBC) [Mass/Vol] 31.7 g/dL Normal 29.9-35.2 [facility] Comment on above: Performed By: #### C BC ####[facility] Rtukytfczo[address] [place] [phone]. Airam Tripahti MCV (RBC) [Entitic vol] 95.0 fL Normal 81.0-99.0 [facility] Comment on above: Performed By: #### C BC ####[facility] Aimbanpfsf[address] [place] [id number]. Airam Deuce MONO # 0.4 103/ul Normal 0.3-0.8 [facility] Comment on above: Performed By: #### C BC ####[facility] B[address]zhjjxggr[address] [place] [id number]. Airam Tripathi Monocytes/100 WBC (Bld) 6.7 % Normal 1.7-12.0 [facility] Comment on above: Performed By: #### C BC ####[facility] [address]klpdaf60[address] [place] [address]Dr. Airam Tripathi NEUT # 5.0 103/ul Normal 1.4-6.5 [facility] Comment on above: Performed By: #### C BC ####[facility] [address]lwzzvvgf[address] [place] [id number]. Airam Tripathi Neutrophils/100 WBC (Bld) 76.5 % Critically high 43.0-75.0 [facility] Comment on above: Performed By: #### C BC ####[facility] Cosucxhmhx[address] [place] [id number]. Airam Triapthi Platelet mean volume (Bld) [Entitic vol] 8.4 fL Critically low 9.5-13.5 [facility] Comment on above: Performed By: #### C BC ####[facility] [address]ysdtuebp[address] [place] [id number]. Airam Tripathi PLT 202 103/ul Normal 150-450 [facility] Comment on above: Performed By: #### C BC ####[facility] B[address]nyybiqw[address] [place] [address]Dr. Airam Deuce RBC 2.62 106/ul Critically low 4.20-5.40 [facility] Comment on above: Performed By: #### C BC ####[facility] Fcnxquxyoe[address] [place] [address]Dr. Airam Tripathi WBC 6.6 103/ul Normal 4.0-11.0 [facility] Comment on above: Performed By: #### C BC ####[facility] Qhckeeakei75[address] [place] [address]Dr. Airam Tripathi OSMOLALITYon 06-15-2022 Osmolality [Osmolality] 269 mosm/kg Critically low 275-295 [facility] Comment on above: Performed By: #### O SMO ####[facility] S[address]uyq[address] [place] [address]Dr. Selenaneil Tripathi PROF 14(COMP METB)on 022 Albumin [Mass/Vol] 2.5 g/dL Critically low 3.4-5.0 e [facility] Comment on above: Performed By: #### C MP, BNP ####[facility] [address]axdyhmrz[address] [place] [address]Dr. Airam Tripathi Albumin/Globulin [Mass ratio] 0.9 {ratio} Normal [facility] Comment on above: Performed By: #### C MP, BNP ####[facility] Nfumaitlud[address] [place], [place] [address]Dr. Airam Tripathi ALP [Catalytic activity/Vol] 128 U/L Critically high 46-116 [facility] Comment on above: Performed By: #### C MP, BNP ####[facility] Fgroybsryd26[address] [place], [place] [address]Dr. Airam Tripathi ALT [Catalytic activity/Vol] 14 U/L Normal 14-59 [facility] Comment on above: Performed By: #### C MP, BNP ####[facility] Hxupkpzcum6345[address] [place], [place] [address]Dr. Airam Tripathi Anion gap [Moles/Vol] 10.4 mmol/L Normal [facility] Comment on above: Performed By: #### C MP, BNP ####[facility] Sectyccvxo8534[address] [place], [place] [address]Dr. Airam Tripathi AST [Catalytic activity/Vol] 23 U/L Normal 15-37 [facility] Comment on above: Performed By: #### C MP, BNP ####[facility] Sjybxssryy[address] [place], [place] [address]Dr. Airam Tripathi Bilirubin [Mass/Vol] 0.2 mg/dL Normal 0.2-1.0 [facility] Comment on above: Performed By: #### C MP, BNP ####[facility] Ksnfbmotmj9586[address] [place], [place] [address]Dr. Airam Tripathi Calcium [Mass/Vol] 7.4 mg/dL Critically low 8.5-10.1 [facility] Comment on above: Performed By: #### C MP, BNP ####[facility] [address]qyjpmnfjm[address] [place], [place] [address]Dr. Airam Tripathi Chloride [Moles/Vol] 99 mmol/L Normal 98-107 [facility] Comment on above: Performed By: #### C MP, BNP ####[facility] Hqygqdezzz425[address] [place], [place] [address]Dr. Airam Tripathi CO2 [Moles/Vol] 24.1 mmol/L Normal 21.0-32.0 [facility] Comment on above: Performed By: #### C MP, BNP ####[facility] [address]ch[address]oum[address] [place] [address]Dr. Airam Tripathi Creatinine [Mass/Vol] 1.45 mg/dL Critically high 0.55-1.02 [facility] Comment on above: Performed By: #### C MP, BNP ####[facility] [address]xwfbqsfpg[address] [place] [address]Dr. Airam Deuce EGFR-AF PANAMANIAN 45 mL/min/1.73m2 Critically low >=60 [facility] Comment on above: Performed By: #### C MP, BNP ####[facility] L[address]pnsoslq64[address] [place] [address]Dr. Airam Deuce EGFR-NON AF PANAMANIAN 37 mL/min/1.73m2 Critically low >=60 [facility] Comment on above: Performed By: #### C MP, BNP ####[facility] Nexuhomgzn[address] [place], [place] [address]Dr. Airam Tripathi Globulin (S) [Mass/Vol] 2.8 g/dL Normal [facility] Comment on above: Performed By: #### C MP, BNP ####[facility] [address]zlmuoq[address] [place], [place] [address]Dr. Selenaneil Deuce Glucose [Mass/Vol] 82 mg/dL Normal 74-106 [facility] Comment on above: Performed By: #### C MP, BNP ####[facility] Twtlrtrqcz[address] [place], [place] [address]Dr. Airam Tripathi Potassium [Moles/Vol] 4.5 mmol/L Normal 3.5-5.1 [facility] Comment on above: Performed By: #### C MP, BNP ####[facility] S[address]abmbrshf[address] [place], [place] [address]Dr. Airam Tripathi Protein [Mass/Vol] 5.3 g/dL Critically low 6.4-8.2 Th e [facility] Comment on above: Performed By: #### C MP, BNP ####[facility] Oqiaohxwbt[address] [place], [place] [address]Dr. Airam Tripathi Sodium [Moles/Vol] 129 mmol/L Critically low 136-145 Th e [facility] Comment on above: Performed By: #### C MP, BNP ####[facility] Kymbawejef[address] [place], [place] [address]Dr. Selenaneil Tripathi Urea nitrogen [Mass/Vol] 35.0 mg/dL Critically high 7.0-18.0 [facility] Comment on above: Performed By: #### C MP, BNP ####[facility] Nmmcprynea[address] [place], [place] [address]Dr. Airam Tripathi Urea nitrogen/Creatinine [Mass ratio] 24.1 mg/mg Normal [facility] Comment on above: Performed By: #### C MP, BNP ####[facility] Qltxrofglr[address] [place], [place] [address]Dr. Airam Tripathi T3, TOTAL (TRIIODOTHYRONINE) on 06-15-2022 T3, TOTAL 113 ng/dL Normal 71-180 [facility] Comment on above: Performed By: #### T 3TOTAL ####[facility] Jsggbrrkpn84[address] [place], [place] [address]Dr. Airam Tripathi BNPon 06-14-2022 Natriuretic peptide B (Bld) [Mass/Vol] 1024.0 pg/mL Critically high <=900.0 [facility] Comment on above: Performed By: #### B CONTENT STRATEGIST, CMP ####[facility] Hjsamwungg[address] [place], [place] [address]Dr. Airam Tripathi CARDIAC CONSUELO 3-6on 2 CK [Catalytic activity/Vol] 116 U/L Normal 26-192 [facility] Comment on above: Performed By: #### C MREP ####[facility] Laixqmotyo[address] [place], [place] [address]Dr. Airam Tripathi CK.MB [Mass/Vol] ng/mL Normal <=3.60 [facility] Comment on above: Performed By: #### C MREP ####[facility] Vjsyxeoviz68[address] [place], [place] [address]Dr. Airam Tripathi HSTROP 6.0 pg/mL Normal 4.0-51.3 [facility] Comment on above: Result Comment: CUT- OFF POINTS HAVE BEEN ESTABLISHED BASED ON THE FOURTH UNIVERSAL DEFINITIONS OF MYOCARDIALINFARCTION. THE UPPER REFERENCE LIMIT (URL) OF TROPONIN, DEFINED THE 99TH PERCENTILE OFcTnI DISTRIBUTION IN A REFERENCE POPULATION, HAS BEEN CONFIRMED THE DECISION THRESHOLDFOR [place] DIAGNOSIS. Performed By: #### C MREP ####[facility] [address] [place] [address]Dr. Airam Tripathi CBC AUTO DIFFon 06-14-2022 BASO # 0.0 103/ul Normal 0.0-0.1 [facility] Comment on above: Performed By: #### C BC ####[facility] Pwxpgntuyp4734[address] [place], [place] [address]Dr. Airam Tripathi Basophils/100 WBC (Bld) 0.3 % Normal 0.2-2.0 [facility] Comment on above: Performed By: #### C BC ####[facility] Esrpskvxqz15[address] [place], [place] [address]Dr. Airam Tripathi EO # 0.2 103/ul Normal 0.0-0.7 [facility] Comment on above: Performed By: #### C BC ####[facility] Oraxsvzllm70[address] [place], [place] [address]Dr. Aiarm Tripathi Eosinophils/100 WBC (Bld) 2.0 % Normal 0.9-7.0 [facility] Comment on above: Performed By: #### C BC ####[facility] Jmirsqpcya3825[address] [place], [place] [address]Dr. Airam Tripathi Erythrocyte distribution width (RBC) [Ratio] 12.8 % Normal 11.0-15.0 [facility] Comment on above: Performed By: #### C BC ####[facility] Xyatwzvqjn5724[address] [place], [place] [address]DrKianna Tripathi Hematocrit (Bld) [Volume fraction] 27.4 % Critically low 36.0-48.0 [facility] Comment on above: Performed By: #### C BC ####[facility] Lgwbrysgyv9454[address] [place], [place] [address]Dr. Airam Tripathi Hemoglobin (Bld) [Mass/Vol] 8.7 g/dL Critically low 12.0-16.0 [facility] Comment on above: Performed By: #### C BC ####[facility] [address] [place] [address]DrKianna Airam Tripathi IG # 0.11 10e3/ul Critically high 0.00-0.03 [facility] Comment on above: Performed By: #### C BC ####[facility] Imscfoerom[address] [place] [address]DrKianna Airam Deuce IG % 1.1 % Critically high 0.0-0.5 [facility] Comment on above: Performed By: #### C BC ####[facility] Qexxbatmar64[address] [place], [place] [address]DrKianna Tripathi LYMPH # 0.9 103/ul Critically low 1.2-3.8 [facility] Comment on above: Performed By: #### C BC ####[facility] Bxouyhgnzy9224[address] [place], [place] [address]DrKianna Tripathi Lymphocytes/100 WBC (Bld) 9.7 % Critically low 20.5-60.0 [facility] Comment on above: Performed By: #### C BC ####[facility] Juviavphug[address] [place], [place] [address]DrKianna Selenaneil Tripathi MANUAL DIFF REQ NO Normal [facility] Comment on above: Performed By: #### C BC ####[facility] [address]diqit[address] [place] [address]DrKianna Airam Deuce MCH (RBC) [Entitic mass] 30.0 pg Normal 26.7-34.0 [facility] Comment on above: Performed By: #### C BC ####[facility] [address]aqpuvtv[address] [place] [address]DrKianna Airam Deuce MCHC (RBC) [Mass/Vol] 31.8 g/dL Normal 29.9-35.2 [facility] Comment on above: Performed By: #### C BC ####[facility] [address]vbvjhv[address] [place] [address]DrKianna Tripathi MCV (RBC) [Entitic vol] 94.5 fL Normal 81.0-99.0 [facility] Comment on above: Performed By: #### C BC ####[facility] [address]xs[address]wbaa[address] [place] [id number]. Airam Tripathi MONO # 0.6 103/ul Normal 0.3-0.8 [facility] Comment on above: Performed By: #### C BC ####[facility] Z[address]ivflrma[address] [place] [id number]. Airam Tripathi Monocytes/100 WBC (Bld) 5.7 % Normal 1.7-12.0 [facility] Comment on above: Performed By: #### C BC ####[facility] [address]cnckm[address] [place] [address]Dr. Airam Tripathi NEUT # 7.8 103/ul Critically high 1.4-6.5 [facility] Comment on above: Performed By: #### C BC ####[facility] [address]pfgtscv[address] [place] [address]Dr. Airam Tripathi Neutrophils/100 WBC (Bld) 81.2 % Critically high 43.0-75.0 [facility] Comment on above: Performed By: #### C BC ####[facility] F[address]dvgxwlw16[address] [place] [address]Dr. Airam Tripathi Platelet mean volume (Bld) [Entitic vol] 8.6 fL Critically low 9.5-13.5 [facility] Comment on above: Performed By: #### C BC ####[facility] [address]he[address] [place] [address]Dr. Airam Tripathi PLT 283 103/ul Normal 150-450 [facility] Comment on above: Performed By: #### C BC ####[facility] Y[address]wudbpo42[address] [place] [id number]. Airam Tripathi RBC 2.90 106/ul Critically low 4.20-5.40 [facility] Comment on above: Performed By: #### C BC ####[facility] Mywocgvnos[address] [place] [phone]. Airam Tripathi WBC 9.6 103/ul Normal 4.0-11.0 [facility] Comment on above: Performed By: #### C BC ####[facility] [address]vnrirnc[address] [place] [address]Dr. Airam Tripathi OSMOLALITYon 06-14-2022 Osmolality [Osmolality] 273 mosm/kg Critically low 275-295 [facility] Comment on above: Performed By: #### O SMO ####[facility] [address]ygpofg[address] [place] [address]Dr. Airam Tripathi PROF 14(COMP METB)on 022 Albumin [Mass/Vol] 3.2 g/dL Critically low 3.4-5.0 [facility] Comment on above: Performed By: #### B CONTENT STRATEGIST, CMP ####[facility] Kvauscmwfb[address] [place], [place] [address]Dr. Airam Tripathi Albumin/Globulin [Mass ratio] 1.0 {ratio} Normal [facility] Comment on above: Performed By: #### B CONTENT STRATEGIST, CMP ####[facility] Albswwciuw9[address] [place], [place] [address]Dr. Airam Tripathi ALP [Catalytic activity/Vol] 154 U/L Critically high 46-116 [facility] Comment on above: Performed By: #### B CONTENT STRATEGIST, CMP ####[facility] Bwsowvdkph[address] [place], [place] [address]Dr. Airam Tripathi ALT [Catalytic activity/Vol] 17 U/L Normal 14-59 [facility] Comment on above: Performed By: #### B CONTENT STRATEGIST, CMP ####[facility] V[address]bnqn[address] [place] [address]Dr. Airam Tripathi Anion gap [Moles/Vol] 12.0 mmol/L Normal Th [facility] Comment on above: Performed By: #### B CONTENT STRATEGIST, CMP ####[facility] Cszezrpbla30[address] [place], [place] [address]Dr. Airam Tripathi AST [Catalytic activity/Vol] 25 U/L Normal 15-37 [facility] Comment on above: Performed By: #### B CONTENT STRATEGIST, CMP ####[facility] Knnfqlwlbn48[address] [place], [place] [address]Dr. Airam Tripathi Bilirubin [Mass/Vol] 0.3 mg/dL Normal 0.2-1.0 [facility] Comment on above: Performed By: #### B CONTENT STRATEGIST, CMP ####[facility] Zjegqnnorj82[address] [place], [place] [address]Dr. Airam Tripathi Calcium [Mass/Vol] 7.6 mg/dL Critically low 8.5-10.1 Th e [facility] Comment on above: Performed By: #### B CONTENT STRATEGIST, CMP ####[facility] Ejtwenvlys6674[address] [place], [place] [address]Dr. Airam Tripathi Chloride [Moles/Vol] 92 mmol/L Critically low 98-107 [facility] Comment on above: Performed By: #### B CONTENT STRATEGIST, CMP ####[facility] Fuwlmscags7309[address] [place], [place] [address]Dr. Airam Tripathi CO2 [Moles/Vol] 25.2 mmol/L Normal 21.0-32.0 [facility] Comment on above: Performed By: #### B CONTENT STRATEGIST, CMP ####[facility] Kjxzctqgot22[address] [place], [place] [address]Dr. Airam Tripathi Creatinine [Mass/Vol] 1.83 mg/dL Critically high 0.55-1.02 [facility] Comment on above: Performed By: #### B CONTENT STRATEGIST, CMP ####[facility] Nwkglidahm24[address] [place], [place] [address]Dr. Selenaneil Deuce EGFR-AF PANAMANIAN 34 mL/min/1.73m2 Critically low >=60 [facility] Comment on above: Performed By: #### B CONTENT STRATEGIST, CMP ####[facility] Evknpkdckk07[address] [place], [place] [address]Dr. Selenaneil Deuce EGFR-NON AF PANAMANIAN 28 mL/min/1.73m2 Critically low >=60 [facility] Comment on above: Performed By: #### B CONTENT STRATEGIST, CMP ####[facility] Ytszxqkpzm8327[address] [place], [place] [address]Dr. Selenaneil Deuce Globulin (S) [Mass/Vol] 3.1 g/dL Normal [facility] Comment on above: Performed By: #### B CONTENT STRATEGIST, CMP ####[facility] [address]juaprh[address] [place] [address]Dr. Airam Tripathi Glucose [Mass/Vol] 77 mg/dL Normal 74-106 [facility] Comment on above: Performed By: #### B CONTENT STRATEGIST, CMP ####[facility] Yfqcmupnap99[address] [place], [place] [address]Dr. Selenaneil Tripathi Potassium [Moles/Vol] 4.2 mmol/L Normal 3.5-5.1 [facility] Comment on above: Performed By: #### B CONTENT STRATEGIST, CMP ####[facility] Gtxtujkawg6747[address] [place], [place] [address]Dr. Selenaneil Tripathi Protein [Mass/Vol] 6.3 g/dL Critically low 6.4-8.2 [facility] Comment on above: Performed By: #### B CONTENT STRATEGIST, CMP ####[facility] Oeszootkdd[address] [place], [place] [address]Dr. Selenaneil Tripathi Sodium [Moles/Vol] 125 mmol/L Critically low 136-145 [facility] Comment on above: Performed By: #### B CONTENT STRATEGIST, CMP ####[facility] Poamahyfjw[address] [place], [place] [address]Dr. Airam Tripathi Urea nitrogen [Mass/Vol] 35.0 mg/dL Critically high 7.0-18.0 [facility] Comment on above: Performed By: #### B CONTENT STRATEGIST, CMP ####[facility] Upjknidhpb[address] [place], [place] [address]Dr. Airam Tripathi Urea nitrogen/Creatinine [Mass ratio] 19.1 mg/mg Normal [facility] Comment on above: Performed By: #### B CONTENT STRATEGIST, CMP ####[facility] Yzrytygpic43[address] [place], [place] [address]Dr. Airam Tripathi UA RANDOM W/MICROSCOPICon BACTERIA TRACE Abnormal NONE SEEN The [facility] Comment on above: Performed By: #### U AMIC ####[facility] Ajutdyufga9966[address] [place], [place] [address]Dr. Airam Tripathi Bilirubin Ql (U) Negative Normal NEGATIVE [facility] Comment on above: Performed By: #### U AMIC ####[facility] [address]zhjrl4[address] [place] [address]Dr. Airam Tripathi CAST NONE SEEN Normal NONE SEEN The [facility] Comment on above: Performed By: #### U AMIC ####[facility] Kbovxugyob75[address] [place], [place] [address]Dr. Airam Tripathi Clarity (U) CLEAR Normal CLEAR [facility] Comment on above: Performed By: #### U AMIC ####[facility] N[address]wrarodk9[address] [place] [address]Dr. Airam Tripathi Color (U) LT. YELLOW Normal YELLOW [facility] Comment on above: Performed By: #### U AMIC ####[facility] Koocleyxve[address] [place], [place] [address]Dr. Airam Tripathi Crystals LM Nom (Urine sed) NONE SEEN Normal NONE SEEN The [facility] Comment on above: Performed By: #### U AMIC ####[facility] Zvaecvlvbg[address] [place], [place] [address]Dr. Airam Tripathi Epithelial cells LM Ql (Urine sed) FEW Abnormal NONE SEEN /RARE [facility] Comment on above: Performed By: #### U AMIC ####[facility] Evvakpyeeb19[address] [place], [place] [address]Dr. Airam Tripathi Glucose Ql (U) Negative Normal NEGATIVE [facility] Comment on above: Performed By: #### U AMIC ####[facility] [address]qsvh[address] [place] [address]Dr. Airam Tripathi Hemoglobin Ql (U) Negative Normal NEGATIVE [facility] Comment on above: Performed By: #### U AMIC ####[facility] Uumnsbekoh9[address] [place], [place] [address]Dr. Airam Tripathi Ketones Ql (U) Negative Normal NEGATIVE [facility] Comment on above: Performed By: #### U AMIC ####[facility] Oykxqvbxbz9[address] [place], [place] [address]Dr. Airam Tripathi LEUKOCYTES MODERATE Abnormal NEGATIVE [facility] Comment on above: Performed By: #### U AMIC ####[facility] Nrhpnqdwoc7[address] [place], [place] [address]Dr. Yilan Tripathi MUCOUS NONE SEEN Normal NONE SEEN [facility] Comment on above: Performed By: #### U AMIC ####[facility] [address]ctxy[address] [place] [address]Dr. Airam Tripathi Nitrite Ql (U) Negative Normal NEGATIVE [facility] Comment on above: Performed By: #### U AMIC ####[facility] S[address]ukvcsmq02[address] [place] [address]Dr. Airam Tripathi pH (U) 5.5 [pH] Normal 5-9 [facility] Comment on above: Performed By: #### U AMIC ####[facility] [address]mxvbjuhtu67[address] [place] [address]Dr. Airam Tripathi RBC 0-2 Normal 0-2 [facility] Comment on above: Performed By: #### U AMIC ####[facility] Iimuhakmkr[address] [place], [place] [address]Dr. Airam Tripathi SPEC GRAVITY 1.020 Normal 1.005-<=1. 025 [facility] Comment on above: Performed By: #### U AMIC ####[facility] Hbwqdjpkqv6[address] [place], [place] [address]Dr. Airam Tripathi UA PROTEIN Negative Normal NEGATIVE/ TRACE [facility] Comment on above: Performed By: #### U AMIC ####[facility] Mgcgbpkrsu922[address] [place], [place] [address]Dr. Selenaneil Tripathi Urobilinogen Qn (U) 0.2 {Ligia'U}/dL Normal 0.2 - 1. 0 [facility] Comment on above: Performed By: #### U AMIC ####[facility] Yarwnyeicd8[address] [place], [place] [address]Dr. Airam Tripathi WBC 5-10 Abnormal NONE SEEN [facility] Comment on above: Performed By: #### U AMIC ####[facility] Dkgsrkkcdg108[address] [place], [place] [address]Dr. Selenaneil Tripathi BNPon 06-13-2022 Natriuretic peptide B (Bld) [Mass/Vol] 1496.0 pg/mL Critically high <=900.0 [facility] Comment on above: Performed By: #### T 4, BNP, MG, TSH, CMADM, CRP, CMP ####[facility] [address]jxwb[address] [place] [id number]. Airam Tripathi CARDIAC CONSUELO 3-6on 2 CK [Catalytic activity/Vol] 125 U/L Normal 26-192 [facility] Comment on above: Performed By: #### C MREP ####[facility] Mstthscqld3[address] [place] [phone]. Ariam Tripathi CK.MB [Mass/Vol] ng/mL Normal <=3.60 [facility] Comment on above: Performed By: #### C MREP ####[facility] Ocbnrnaaoa65[address] [place] [address]Dr. Airam Tripathi HSTROP 5.8 pg/mL Normal 4.0-51.3 [facility] Comment on above: Result Comment: CUT- OFF POINTS HAVE BEEN ESTABLISHED BASED ON THE FOURTH UNIVERSAL DEFINITIONS OF MYOCARDIALINFARCTION. THE UPPER REFERENCE LIMIT (URL) OF TROPONIN, DEFINED THE 99TH PERCENTILE OFcTnI DISTRIBUTION IN A REFERENCE POPULATION, HAS BEEN CONFIRMED THE DECISION THRESHOLDFOR [place] DIAGNOSIS. Performed By: #### C MREP ####[facility] J[address]qnhdern[address] [place] [address]Dr. Airam Tripathi CARDIAC CONSUELO ADMITon 022 CK [Catalytic activity/Vol] 121 U/L Normal 26-192 [facility] Comment on above: Performed By: #### T 4, BNP, MG, TSH, CMADM, CRP, CMP ####[facility] Ubxeodycqz29[address] [place] [phone]. Airam Tripathi CK.MB [Mass/Vol] 3.06 ng/mL Normal <=3.60 [facility] Comment on above: Performed By: #### T 4, BNP, MG, TSH, CMADM, CRP, CMP ####[facility] Agxzkiqgms[address] [place] [address]Dr. Airam Tripathi HSTROP 6.9 pg/mL Normal 4.0-51.3 [facility] Comment on above: Result Comment: CUT- OFF POINTS HAVE BEEN ESTABLISHED BASED ON THE FOURTH UNIVERSAL DEFINITIONS OF MYOCARDIALINFARCTION. THE UPPER REFERENCE LIMIT (URL) OF TROPONIN, DEFINED THE 99TH PERCENTILE OFcTnI DISTRIBUTION IN A REFERENCE POPULATION, HAS BEEN CONFIRMED THE DECISION THRESHOLDFOR [place] DIAGNOSIS. Performed By: #### T 4, BNP, MG, TSH, CMADM, CRP, CMP ####[facility] Ljxplncdco[address] [place] [address]Dr. Airam Tripathi KATHY 124 ng/mL Critically high 9-82 [facility] Comment on above: Performed By: #### T 4, BNP, MG, TSH, CMADM, CRP, CMP ####[facility] V[address]xyfloucb67[address] [place] [address]Dr. Airam Tripathi CBC AUTO DIFFon 06-13-2022 BASO # 0.0 103/ul Normal 0.0-0.1 [facility] Comment on above: Performed By: #### C BC ####[facility] Ybyiaczqlw357[address] [place], [place] [address]Dr. Airam Tripathi Basophils/100 WBC (Bld) 0.2 % Normal 0.2-2.0 [facility] Comment on above: Performed By: #### C BC ####[facility] Jpknucqhtu8374[address] [place], [place] [address]Dr. Airam Tripathi EO # 0.2 103/ul Normal 0.0-0.7 [facility] Comment on above: Performed By: #### C BC ####[facility] Kcmxghygtr0224[address] [place], [place] [address]Dr. Airam Tripathi Eosinophils/100 WBC (Bld) 1.5 % Normal 0.9-7.0 [facility] Comment on above: Performed By: #### C BC ####[facility] Mxqwwsehvi4207[address] [place], [place] [address]Dr. Airam Tripathi Erythrocyte distribution width (RBC) [Ratio] 12.7 % Normal 11.0-15.0 [facility] Comment on above: Performed By: #### C BC ####[facility] Zpqrfjtngy430[address] [place], [place] [address]Dr. Airam Tripathi Hematocrit (Bld) [Volume fraction] 30.0 % Critically low 36.0-48.0 [facility] Comment on above: Performed By: #### C BC ####[facility] V[address]ivuozsr[address] [place] [address]Dr. Airam Tripathi Hemoglobin (Bld) [Mass/Vol] 9.6 g/dL Critically low 12.0-16.0 [facility] Comment on above: Performed By: #### C BC ####[facility] Dhakukpvdx04[address] [place] [address]Dr. Airam Tripathi IG # 0.11 10e3/ul Critically high 0.00-0.03 [facility] Comment on above: Performed By: #### C BC ####[facility] R[address]zqenmwep55[address] [place], [place] [address]Dr. Airam Tripathi IG % 1.1 % Critically high 0.0-0.5 [facility] Comment on above: Performed By: #### C BC ####[facility] Lqafdmrjbg[address] [place], [place] [address]Dr. Airam Tripathi LYMPH # 1.5 103/ul Normal 1.2-3.8 [facility] Comment on above: Performed By: #### C BC ####[facility] Ohtmsvseul24[address] [place], [place] [address]Dr. Airam Tripathi Lymphocytes/100 WBC (Bld) 14.9 % Critically low 20.5-60.0 [facility] Comment on above: Performed By: #### C BC ####[facility] Mnkjeayzel[address] [place], [place] [address]Dr. Airam Tripathi MANUAL DIFF REQ NO Normal [facility] Comment on above: Performed By: #### C BC ####[facility] Htdseyqrot22[address] [place], [place] [address]Dr. Airam Tripathi MCH (RBC) [Entitic mass] 30.0 pg Normal 26.7-34.0 [facility] Comment on above: Performed By: #### C BC ####[facility] [address]ixmmuvfgk15[address] [place], [place] [address]Dr. Airam Tripathi MCHC (RBC) [Mass/Vol] 32.0 g/dL Normal 29.9-35.2 [facility] Comment on above: Performed By: #### C BC ####[facility] [address]wysknih[address] [place] [phone]. Airam Tripathi MCV (RBC) [Entitic vol] 93.8 fL Normal 81.0-99.0 [facility] Comment on above: Performed By: #### C BC ####[facility] Fkmygbpgyt5[address] [place] [phone]. Airam Tripathi MONO # 0.8 103/ul Normal 0.3-0.8 [facility] Comment on above: Performed By: #### C BC ####[facility] [address] [place] [id number] Airam Deuce Monocytes/100 WBC (Bld) 7.3 % Normal 1.7-12.0 [facility] Comment on above: Performed By: #### C BC ####[facility] Bmytbthtir[address] [place], [place] [address]Dr. Airam Tripathi NEUT # 7.8 103/ul Critically high 1.4-6.5 [facility] Comment on above: Performed By: #### C BC ####[facility] Dooiryzgsp[address] [place], [place] [id number]. Airam Deuce Neutrophils/100 WBC (Bld) 75.0 % Normal 43.0-75.0 [facility] Comment on above: Performed By: #### C BC ####[facility] Bzzjpwncgy[address] [place], [place] [id number]. Airam Deuce Platelet mean volume (Bld) [Entitic vol] 9.1 fL Critically low 9.5-13.5 [facility] Comment on above: Performed By: #### C BC ####[facility] Xfkjwncdjw[address] [place], [place] [id number]. Airam Deuce PLT 341 103/ul Normal 150-450 [facility] Comment on above: Performed By: #### C BC ####[facility] L[address]vfmqw[address] [place] [id number] Tripathi RBC 3.20 106/ul Critically low 4.20-5.40 [facility] Comment on above: Performed By: #### C BC ####[facility] T[address]sh[address] [place], [place] [address]Bs. Airam Tripathi WBC 10.4 103/ul Normal 4.0-11.0 [facility] Comment on above: Performed By: #### C BC ####[facility] K[address]ubbgak[address] [place], [place] [address]Hi. Airam Tripathi CRPon 06-13-2022 CRP [Mass/Vol] mg/L Normal <=1.0 [facility] Comment on above: Performed By: #### T 4, BNP, MG, TSH, CMADM, CRP, CMP ####[facility] Kdnvkssyjd[address] [place], [place] [address]La. Airam Tripathi CT HEAD WO CONon 06-13-2022 CT HEAD WO CON Normal [facility] Covid-19 PCR (CVDTB)on 05-26 SARS-CoV-2 (COVID-19) RNA MIKE+probe Ql (Unsp spec) Not detected Normal NOT DETECTED [facility] Comment on above: Result Comment: When diagnostic [...] test is supported by the [employer] and Human Service's declaration that [...] Performed By: #### C VDTBH ####[facility] [address]wlnmu[address] [place], [place] [address]Xw. Airam Tripathi LACTATE/LACTIC ACIDon 2021 Lactate [Moles/Vol] 0.5 mmol/L Normal 0.4-1.9 [facility] Comment on above: Performed By: #### L ACT ####[facility] [address]ecworkasf[address] [place] [address]Dr. Airam Tripathi MAGNESIUMon 06-13-2022 Magnesium [Mass/Vol] 1.9 mg/dL Normal 1.8-2.4 [facility] Comment on above: Performed By: #### T 4, BNP, MG, TSH, CMADM, CRP, CMP ####[facility] [address]jiezcrkd[address] [place] [address]Dr. Airam Tripathi PROF 14(COMP METB)on 022 Albumin [Mass/Vol] 3.8 g/dL Normal 3.4-5.0 [facility] Comment on above: Performed By: #### T 4, BNP, MG, TSH, CMADM, CRP, CMP ####[facility] Avnssfqczo38[address] [place], [place] [address]Dr. Airam Tripathi Albumin/Globulin [Mass ratio] 1.1 {ratio} Normal [facility] Comment on above: Performed By: #### T 4, BNP, MG, TSH, CMADM, CRP, CMP ####[facility] Geiyscuzjn9[address] [place], [place] [address]Dr. Airam Tripathi ALP [Catalytic activity/Vol] 161 U/L Critically high 46-116 [facility] Comment on above: Performed By: #### T 4, BNP, MG, TSH, CMADM, CRP, CMP ####[facility] Gyxivxrrwy[address] [place] [address]Dr. Airam Tripathi ALT [Catalytic activity/Vol] 21 U/L Normal 14-59 [facility] Comment on above: Performed By: #### T 4, BNP, MG, TSH, CMADM, CRP, CMP ####[facility] [address]qf[address] [place] [address]Dr. Airam Tripathi Anion gap [Moles/Vol] 12.6 mmol/L Normal [facility] Comment on above: Performed By: #### T 4, BNP, MG, TSH, CMADM, CRP, CMP ####[facility] [address]dnq[address] [place] [address]Dr. Airam Tripathi AST [Catalytic activity/Vol] 30 U/L Normal 15-37 [facility] Comment on above: Performed By: #### T 4, BNP, MG, TSH, CMADM, CRP, CMP ####[facility] [address]sjegr[address] [place] [address]Dr. Airam Tripathi Bilirubin [Mass/Vol] 0.3 mg/dL Normal 0.2-1.0 [facility] Comment on above: Performed By: #### T 4, BNP, MG, TSH, CMADM, CRP, CMP ####[facility] Bvipagumlm95[address] [place], [place] [address]Dr. Airam Tripathi Calcium [Mass/Vol] 8.8 mg/dL Normal 8.5-10.1 [facility] Comment on above: Performed By: #### T 4, BNP, MG, TSH, CMADM, CRP, CMP ####[facility] Yguuzzwxuf1875[address] [place], [place] [address]Dr. Airam Tripathi Chloride [Moles/Vol] 91 mmol/L Critically low 98-107 [facility] Comment on above: Performed By: #### T 4, BNP, MG, TSH, CMADM, CRP, CMP ####[facility] Ddouarxahn264[address] [place], [place] [address]Dr. Airam Tripathi CO2 [Moles/Vol] 26.9 mmol/L Normal 21.0-32.0 [facility] Comment on above: Performed By: #### T 4, BNP, MG, TSH, CMADM, CRP, CMP ####[facility] Irtmuxywku67[address] [place], [place] [address]Dr. Airam Tripathi Creatinine [Mass/Vol] 1.83 mg/dL Critically high 0.55-1.02 [facility] Comment on above: Performed By: #### T 4, BNP, MG, TSH, CMADM, CRP, CMP ####[facility] Hzupmoxiju9835[address] [place], [place] [address]Dr. Airam Tripathi EGFR-AF PANAMANIAN 34 mL/min/1.73m2 Critically low >=60 [facility] Comment on above: Performed By: #### T 4, BNP, MG, TSH, CMADM, CRP, CMP ####[facility] [address]ypqf[address] [place] [address]Dr. Airam Tripathi EGFR-NON AF PANAMANIAN 28 mL/min/1.73m2 Critically low >=60 [facility] Comment on above: Performed By: #### T 4, BNP, MG, TSH, CMADM, CRP, CMP ####[facility] Wjbalhclct94[address] [place], [place] [address]Dr. Airam Tripathi Globulin (S) [Mass/Vol] 3.5 g/dL Normal [facility] Comment on above: Performed By: #### T 4, BNP, MG, TSH, CMADM, CRP, CMP ####[facility] Qmhxbmtmkp8025[address] [place], [place] [address]Dr. Airam Tripathi Glucose [Mass/Vol] 96 mg/dL Normal 74-106 [facility] Comment on above: Performed By: #### T 4, BNP, MG, TSH, CMADM, CRP, CMP ####[facility] Auhedquipj8477[address] [place], [place] [address]Dr. Airam Tripathi Potassium [Moles/Vol] 4.5 mmol/L Normal 3.5-5.1 [facility] Comment on above: Performed By: #### T 4, BNP, MG, TSH, CMADM, CRP, CMP ####[facility] Htfacmggpv6864[address] [place], [place] [address]Dr. Airam Tripathi Protein [Mass/Vol] 7.3 g/dL Normal 6.4-8.2 [facility] Comment on above: Performed By: #### T 4, BNP, MG, TSH, CMADM, CRP, CMP ####[facility] [address]saib[address] [place] [address]Dr. Airam Tripathi Sodium [Moles/Vol] 126 mmol/L Critically low 136-145 [facility] Comment on above: Performed By: #### T 4, BNP, MG, TSH, CMADM, CRP, CMP ####[facility] Mxerxdpelm4365[address] [place], [place] [address]Dr. Airam Tripathi Urea nitrogen [Mass/Vol] 34.0 mg/dL Critically high 7.0-18.0 [facility] Comment on above: Performed By: #### T 4, BNP, MG, TSH, CMADM, CRP, CMP ####[facility] [address] [place] [address]Dr. Airam Tripathi Urea nitrogen/Creatinine [Mass ratio] 18.6 mg/mg Normal [facility] Comment on above: Performed By: #### T 4, BNP, MG, TSH, CMADM, CRP, CMP ####[facility] [address]qhv[address] [place] [address]Dr. Airam Tripathi Albumin [Mass/Vol] 3.4 g/dL Normal 3.4-5.0 [facility] Comment on above: Performed By: #### C MP ####[facility] Kvobakfudr4[address] [place], [place] [address]Dr. Airam Tripathi Albumin/Globulin [Mass ratio] 1.0 {ratio} Normal [facility] Comment on above: Performed By: #### C MP ####[facility] Kczpieaylk45[address] [place], [place] [address]Dr. Airam Tripathi ALP [Catalytic activity/Vol] 151 U/L Critically high 46-116 [facility] Comment on above: Performed By: #### C MP ####[facility] Wnjwswjbni05[address] [place], [place] [address]Dr. Airam Tripathi ALT [Catalytic activity/Vol] 20 U/L Normal 14-59 [facility] Comment on above: Performed By: #### C MP ####[facility] Gqatjibfes97[address] [place], [place] [address]Dr. Airam Tripathi Anion gap [Moles/Vol] 11.7 mmol/L Normal [facility] Comment on above: Performed By: #### C MP ####[facility] Gwmvtjggeo7694[address] [place], [place] [address]Dr. Airam Tripathi AST [Catalytic activity/Vol] 28 U/L Normal 15-37 [facility] Comment on above: Performed By: #### C MP ####[facility] [address]wpnuqzi[address] [place] [address]Dr. Airam Tripathi Bilirubin [Mass/Vol] 0.3 mg/dL Normal 0.2-1.0 [facility] Comment on above: Performed By: #### C MP ####[facility] Daqhfyqtcl7[address] [place], [place] [address]Dr. Airam Tripathi Calcium [Mass/Vol] 8.5 mg/dL Normal 8.5-10.1 [facility] Comment on above: Performed By: #### C MP ####[facility] Iicebutvxm0426[address] [place], [place] [address]Dr. Airam Tripathi Chloride [Moles/Vol] 91 mmol/L Critically low 98-107 [facility] Comment on above: Performed By: #### C MP ####[facility] Dqkyfoolpm1484[address] [place], [place] [address]Dr. Airam Tripathi CO2 [Moles/Vol] 28.3 mmol/L Normal 21.0-32.0 [facility] Comment on above: Performed By: #### C MP ####[facility] Xcpwshgone[address] [place], [place] [address]Dr. Airam Tripathi Creatinine [Mass/Vol] 1.68 mg/dL Critically high 0.55-1.02 [facility] Comment on above: Performed By: #### C MP ####[facility] Ntzfsacduz0[address] [place], [place] [address]Dr. Airam Tripathi EGFR-AF PANAMANIAN 38 mL/min/1.73m2 Critically low >=60 [facility] Comment on above: Performed By: #### C MP ####[facility] Drcavhiuau939[address] [place], [place] [address]Dr. Airam Tripathi EGFR-NON AF PANAMANIAN 31 mL/min/1.73m2 Critically low >=60 [facility] Comment on above: Performed By: #### C MP ####[facility] Rtnvdhzewo25[address] [place], [place] [address]Dr. Airam Tripathi Globulin (S) [Mass/Vol] 3.5 g/dL Normal [facility] Comment on above: Performed By: #### C MP ####[facility] [address]dw[address]jmv[address] [place] [address]Dr. Airam Tripathi Glucose [Mass/Vol] 74 mg/dL Normal 74-106 [facility] Comment on above: Performed By: #### C MP ####[facility] Ryxdzkrxsz[address] [place] [address]Dr. Airam Tripathi Potassium [Moles/Vol] 4.0 mmol/L Normal 3.5-5.1 [facility] Comment on above: Performed By: #### C MP ####[facility] Lokisnseaz0749[address] [place], [place] [address]Dr. Airam Tripathi Protein [Mass/Vol] 6.9 g/dL Normal 6.4-8.2 [facility] Comment on above: Performed By: #### C MP ####[facility] Ekaeamsnyq350[address] [place], [place] [address]Dr. Airam Tripathi Sodium [Moles/Vol] 127 mmol/L Critically low 136-145 [facility] Comment on above: Performed By: #### C MP ####[facility] Mhsnoqvcjv7527[address] [place], [place] [address]Dr. Airam Tripathi Urea nitrogen [Mass/Vol] 29.0 mg/dL Critically high 7.0-18.0 [facility] Comment on above: Performed By: #### C MP ####[facility] Nzxydwzbpa[address] [place], [place] [address]Dr. Airam Tripathi Urea nitrogen/Creatinine [Mass ratio] 17.3 mg/mg Normal [facility] Comment on above: Performed By: #### C MP ####[facility] Hxaqtfcyyp64[address] [place], [place] [address]Dr. Airam Tripathi T4on 06-13-2022 T4 [Mass/Vol] 6.80 ug/dL Normal 4.80-13.90 [facility] Comment on above: Performed By: #### T 4, BNP, MG, TSH, CMADM, CRP, CMP ####[facility] [address]xqbvzgqn[address] [place] [address]Dr. Airam Tripathi TSHon 06-13-2022 TSH 0.101 uIU/mL Critically low 0.358-3.74 0 [facility] Comment on above: Performed By: #### T 4, BNP, MG, TSH, CMADM, CRP, CMP ####[facility] Ljwopkmgnk[address] [place], [place] [address]Dr. Airam Tripathi OSMOLALITYon 06-08-2022 Osmolality [Osmolality] 272 mosm/kg Critically low 275-295 [facility] Comment on above: Performed By: #### O SMO ####[facility] Smwkqgwtes[address] [place], [place] [address]Dr. Airam Deuce CBC AUTO DIFFon 06-06-2022 BASO # 0.0 103/ul Normal 0.0-0.1 [facility] Comment on above: Performed By: #### C BC ####[facility] Opbpcohsfe8417[address] [place], [place] [address]Dr. Airam Tripathi Basophils/100 WBC (Bld) 0.3 % Normal 0.2-2.0 [facility] Comment on above: Performed By: #### C BC ####[facility] Upflmbnwcy[address] [place], [place] [address]Dr. Airam Tripathi EO # 0.2 103/ul Normal 0.0-0.7 [facility] Comment on above: Performed By: #### C BC ####[facility] Dqrtjzhket4367[address] [place], [place] [address]Dr. Selenaneil Tripathi Eosinophils/100 WBC (Bld) 2.5 % Normal 0.9-7.0 [facility] Comment on above: Performed By: #### C BC ####[facility] Xknrbmbtki46[address] [place], [place] [address]Dr. Airam Tripathi Erythrocyte distribution width (RBC) [Ratio] 12.9 % Normal 11.0-15.0 [facility] Comment on above: Performed By: #### C BC ####[facility] Ixshfqkwug21[address] [place], [place] [address]Dr. Airam Tripathi Hematocrit (Bld) [Volume fraction] 29.8 % Critically low 36.0-48.0 [facility] Comment on above: Performed By: #### C BC ####[facility] [address]yd[address] [place] [id number]. Airam Tripathi Hemoglobin (Bld) [Mass/Vol] 9.7 g/dL Critically low 12.0-16.0 [facility] Comment on above: Performed By: #### C BC ####[facility] [address]wpqto[address] [place] [address]Dr. Airam Tripathi IG # 0.03 10e3/ul Normal 0.00-0.03 [facility] Comment on above: Performed By: #### C BC ####[facility] [address]nybjy[address] [place] [address]Dr. Airam Tripathi IG % 0.3 % Normal 0.0-0.5 [facility] Comment on above: Performed By: #### C BC ####[facility] [address]qsgbqx[address] [place] [address]Dr. Airam Tripathi LYMPH # 1.3 103/ul Normal 1.2-3.8 [facility] Comment on above: Performed By: #### C BC ####[facility] Znclifajdz9[address] [place] [address]Dr. Airam Tripathi Lymphocytes/100 WBC (Bld) 14.6 % Critically low 20.5-60.0 [facility] Comment on above: Performed By: #### C BC ####[facility] [address]yhpnj[address] [place] [address]Dr. Airam Tripathi MANUAL DIFF REQ NO Normal [facility] Comment on above: Performed By: #### C BC ####[facility] Qqyyhyonia9[address] [place] [address]Dr. Airam Tripathi MCH (RBC) [Entitic mass] 30.6 pg Normal 26.7-34.0 [facility] Comment on above: Performed By: #### C BC ####[facility] Rwygbdazgo9[address] [place] [address]Dr. Airam Tripathi MCHC (RBC) [Mass/Vol] 32.6 g/dL Normal 29.9-35.2 [facility] Comment on above: Performed By: #### C BC ####[facility] Lqodigcvfk40[address] [place], [place] [address]DrKianna Airam Deuce MCV (RBC) [Entitic vol] 94.0 fL Normal 81.0-99.0 [facility] Comment on above: Performed By: #### C BC ####[facility] [address]fmvfcg[address] [place] [address]Dr. Airam Tripathi MONO # 0.5 103/ul Normal 0.3-0.8 [facility] Comment on above: Performed By: #### C BC ####[facility] Cfnepgnwsj8735 [place] [address]DrKianna Tripathi Monocytes/100 WBC (Bld) 5.7 % Normal 1.7-12.0 [facility] Comment on above: Performed By: #### C BC ####[facility] Hfnvqtvrks[address] [place], [place] [address]Dr. Selenaneil Deuce NEUT # 6.9 103/ul Critically high 1.4-6.5 [facility] Comment on above: Performed By: #### C BC ####[facility] Xakiyfmkic725[address] [place], [place] [address]Dr. Selenaneil Tripatih Neutrophils/100 WBC (Bld) 76.6 % Critically high 43.0-75.0 [facility] Comment on above: Performed By: #### C BC ####[facility] L[address]enahigc[address] [place] [address]Dr. Selenaneil Tripathi Platelet mean volume (Bld) [Entitic vol] 9.2 fL Critically low 9.5-13.5 [facility] Comment on above: Performed By: #### C BC ####[facility] Ulhqxnthir[address] [place] [address]Dr. Airam Tripathi PLT 271 103/ul Normal 150-450 [facility] Comment on above: Performed By: #### C BC ####[facility] Dsonvzdcmx10[address] [place], [place] [address]DrKianna Tripathi RBC 3.17 106/ul Critically low 4.20-5.40 [facility] Comment on above: Performed By: #### C BC ####[facility] Wmzxyygcbe05[address] [place], [place] [address]Dr. Airam Tripathi WBC 9.1 103/ul Normal 4.0-11.0 [facility] Comment on above: Performed By: #### C BC ####[facility] Xppzynetev[address] [place] [address]Dr. Airam Tripathi PROF 14(COMP METB)on 022 Albumin [Mass/Vol] 3.4 g/dL Normal 3.4-5.0 [facility] Comment on above: Performed By: #### C MP ####[facility] Mugmloidbn56[address] [place] [address]Dr. Airam Tripathi Albumin/Globulin [Mass ratio] 1.0 {ratio} Normal [facility] Comment on above: Performed By: #### C MP ####[facility] Zpqcexvtcx74[address] [place] [address]Dr. Airam Tripathi ALP [Catalytic activity/Vol] 156 U/L Critically high 46-116 [facility] Comment on above: Performed By: #### C MP ####[facility] Mvwsqfxuve5514[address] [place], [place] [address]Dr. Airam Tripathi ALT [Catalytic activity/Vol] 18 U/L Normal 14-59 [facility] Comment on above: Performed By: #### C MP ####[facility] Oapgwhjouh71[address] [place], [place] [address]Dr. Airam Tripathi Anion gap [Moles/Vol] 10.8 mmol/L Normal [facility] Comment on above: Performed By: #### C MP ####[facility] Tgxggqbgbo0340[address] [place], [place] [address]Dr. Airam Tripathi AST [Catalytic activity/Vol] 27 U/L Normal 15-37 [facility] Comment on above: Performed By: #### C MP ####[facility] Tacoctbfol328[address] [place], [place] [address]Dr. Airam Tripathi Bilirubin [Mass/Vol] 0.2 mg/dL Normal 0.2-1.0 [facility] Comment on above: Performed By: #### C MP ####[facility] Ljozmflqyi8535[address] [place], [place] [address]Dr. Airam Tripathi Calcium [Mass/Vol] 8.1 mg/dL Critically low 8.5-10.1 Th [facility] Comment on above: Performed By: #### C MP ####[facility] Fxbqkueasq64[address] [place], [place] [address]Dr. Airam Deuce Chloride [Moles/Vol] 92 mmol/L Critically low 98-107 [facility] Comment on above: Performed By: #### C MP ####[facility] Ovundhttbo105[address] [place], [place] [address]Dr. Airam Deuce CO2 [Moles/Vol] 27.4 mmol/L Normal 21.0-32.0 [facility] Comment on above: Performed By: #### C MP ####[facility] Whytgkyhrz5[address] [place], [place] [address]Dr. Airam Deuce Creatinine [Mass/Vol] 1.57 mg/dL Critically high 0.55-1.02 [facility] Comment on above: Performed By: #### C MP ####[facility] Gtjvmbfoye0[address] [place], [place] [address]Dr. Airam Deuce EGFR-AF PANAMANIAN 41 mL/min/1.73m2 Critically low >=60 [facility] Comment on above: Performed By: #### C MP ####[facility] Wlkeuyzbxq5346[address] [place], [place] [address]Dr. Airam Deuce EGFR-NON AF PANAMANIAN 34 mL/min/1.73m2 Critically low >=60 [facility] Comment on above: Performed By: #### C MP ####[facility] Rceienchbf5238[address] [place], [place] [address]Dr. Airam Deuce Globulin (S) [Mass/Vol] 3.4 g/dL Normal [facility] Comment on above: Performed By: #### C MP ####[facility] Tnohiaknsp24[address] [place], [place] [address]Dr. Airam Deuce Glucose [Mass/Vol] 82 mg/dL Normal 74-106 [facility] Comment on above: Performed By: #### C MP ####[facility] Xgjtkwdlgk4315[address] [place], [place] [address]Dr. Airam Tripathi Potassium [Moles/Vol] 4.2 mmol/L Normal 3.5-5.1 [facility] Comment on above: Performed By: #### C MP ####[facility] Ycgnykuhmu9[address] [place], [place] [address]Dr. Airam Tripathi Protein [Mass/Vol] 6.8 g/dL Normal 6.4-8.2 [facility] Comment on above: Performed By: #### C MP ####[facility] Csklgtcdhj340[address] [place], [place] [address]Dr. Airam Tripathi Sodium [Moles/Vol] 126 mmol/L Critically low 136-145 [facility] Comment on above: Performed By: #### C MP ####[facility] Fdddgwndbg9816[address] [place], [place] [address]Dr. Airam Tripathi Urea nitrogen [Mass/Vol] 35.0 mg/dL Critically high 7.0-18.0 [facility] Comment on above: Performed By: #### C MP ####[facility] Rryuftesou55[address] [place], [place] [address]Dr. Airam Tripathi Urea nitrogen/Creatinine [Mass ratio] 22.3 mg/mg Normal [facility] Comment on above: Performed By: #### C MP ####[facility] Pjcgfydfxt[address] [place], [place] [address]Dr. Airam Tripathi OSMOLALITYon 06-02-2022 Osmolality [Osmolality] 276 mosm/kg Normal 275-295 [facility] Comment on above: Performed By: #### O SMO ####[facility] Pmywpjxcap85[address] [place], [place] [address]Dr. Airam Tripathi CBC AUTO DIFFon 06-01-2022 BASO # 0.1 103/ul Normal 0.0-0.1 [facility] Comment on above: Performed By: #### C BC ####[facility] Wulzulppke[address] [place], [place] [address]Dr. Airam Tripathi Basophils/100 WBC (Bld) 0.7 % Normal 0.2-2.0 [facility] Comment on above: Performed By: #### C BC ####[facility] [address]oxhlkcf[address] [place] [address]Dr. Airam Tripathi EO # 0.3 103/ul Normal 0.0-0.7 [facility] Comment on above: Performed By: #### C BC ####[facility] [address]mgfxyncy[address] [place] [address]Dr. Airam Tripathi Eosinophils/100 WBC (Bld) 3.3 % Normal 0.9-7.0 [facility] Comment on above: Performed By: #### C BC ####[facility] Aneoxewnov[address] [place] [address]Dr. Airam Tripathi Erythrocyte distribution width (RBC) [Ratio] 13.2 % Normal 11.0-15.0 [facility] Comment on above: Performed By: #### C BC ####[facility] Hmeqzoatcg99[address] [place], [place] [address]Dr. Airam Tripathi Hematocrit (Bld) [Volume fraction] 32.0 % Critically low 36.0-48.0 [facility] Comment on above: Performed By: #### C BC ####[facility] Ojiaujsljq[address] [place], [place] [address]Dr. Airam Tripathi Hemoglobin (Bld) [Mass/Vol] 10.3 g/dL Critically low 12.0-16.0 [facility] Comment on above: Performed By: #### C BC ####[facility] [address]ltlupllhi[address] [place] [address]Dr. Airam Tripathi IG # 0.05 10e3/ul Critically high 0.00-0.03 [facility] Comment on above: Performed By: #### C BC ####[facility] Zvemluzmgf[address] [place] [address]Dr. Airam Tripathi IG % 0.7 % Critically high 0.0-0.5 [facility] Comment on above: Performed By: #### C BC ####[facility] Fatjnmrqem[address] [place], [place] [address]Dr. Selenaneil Tripathi LYMPH # 1.7 103/ul Normal 1.2-3.8 [facility] Comment on above: Performed By: #### C BC ####[facility] [address]wekm[address] [place] [id number]. Airam Deuce Lymphocytes/100 WBC (Bld) 22.6 % Normal 20.5-60.0 [facility] Comment on above: Performed By: #### C BC ####[facility] Xncxgmrhlu24[address] [place] [address]Dr. Airam Deuce MANUAL DIFF REQ NO Normal [facility] Comment on above: Performed By: #### C BC ####[facility] Gxjczugwor[address] [place] [address]Dr. Airam Deuce MCH (RBC) [Entitic mass] 30.8 pg Normal 26.7-34.0 [facility] Comment on above: Performed By: #### C BC ####[facility] Xkgvqkmwsf56[address] [place] [address]Dr. Airam Deuce MCHC (RBC) [Mass/Vol] 32.2 g/dL Normal 29.9-35.2 [facility] Comment on above: Performed By: #### C BC ####[facility] Nzyiqvdbrq[address] [place], [place] [address]Dr. Selenaneil Tripathi MCV (RBC) [Entitic vol] 95.8 fL Normal 81.0-99.0 [facility] Comment on above: Performed By: #### C BC ####[facility] Eovpxhqdxh55[address] [place], [place] [address]Dr. Selenaneil Deuce MONO # 0.6 103/ul Normal 0.3-0.8 [facility] Comment on above: Performed By: #### C BC ####[facility] Wxzmycakeq[address] [place] [address]Dr. Selenaneil Tripathi Monocytes/100 WBC (Bld) 8.6 % Normal 1.7-12.0 [facility] Comment on above: Performed By: #### C BC ####[facility] Ontziemcvk7675[address] [place], [place] [address]Dr. Airam Tripathi NEUT # 4.8 103/ul Normal 1.4-6.5 [facility] Comment on above: Performed By: #### C BC ####[facility] Zlsymcmrqs4[address] [place] [address]Dr. Airam Deuce Neutrophils/100 WBC (Bld) 64.1 % Normal 43.0-75.0 [facility] Comment on above: Performed By: #### C BC ####[facility] Zhoszouyei15[address] [place] [address]Dr. Airam Tripathi Platelet mean volume (Bld) [Entitic vol] 10.0 fL Normal 9.5-13.5 [facility] Comment on above: Performed By: #### C BC ####[facility] Fwdyvegqmb[address] [place] [address]Dr. Airam Tripathi PLT 322 103/ul Normal 150-450 [facility] Comment on above: Performed By: #### C BC ####[facility] Cmxbunwfaj7861 [place] [address]Dr. Airam Tripathi RBC 3.34 106/ul Critically low 4.20-5.40 [facility] Comment on above: Performed By: #### C BC ####[facility] Oxvjjzcqxr8563 [place] [address]Dr. Airam Tripathi WBC 7.5 103/ul Normal 4.0-11.0 [facility] Comment on above: Performed By: #### C BC ####[facility] Dknuuvziam3676[address] [place], [place] [address]Dr. Airam Tripathi PROF 14(COMP METB)on 022 Albumin [Mass/Vol] 3.5 g/dL Normal 3.4-5.0 [facility] Comment on above: Performed By: #### C MP ####[facility] Vavfssawbe5[address] [place] [id number]. Airam Tripathi Albumin/Globulin [Mass ratio] 1.1 {ratio} Normal [facility] Comment on above: Performed By: #### C MP ####[facility] Yulblyuogm80[address] [place] [address]Dr. Airam Tripathi ALP [Catalytic activity/Vol] 167 U/L Critically high 46-116 [facility] Comment on above: Performed By: #### C MP ####[facility] Dpnhwubece5867 [place] [address]Dr. Airam Tripathi ALT [Catalytic activity/Vol] 24 U/L Normal 14-59 [facility] Comment on above: Performed By: #### C MP ####[facility] Qotfvxznzi5420[address] [place], [place] [address]Dr. Airam Tripathi Anion gap [Moles/Vol] 14.1 mmol/L Normal [facility] Comment on above: Performed By: #### C MP ####[facility] Tmtvighatq5824[address] [place], [place] [address]Dr. Airam Tripathi AST [Catalytic activity/Vol] 27 U/L Normal 15-37 [facility] Comment on above: Performed By: #### C MP ####[facility] Zriupxmlcl110[address] [place], [place] [address]Dr. Airam Tripathi Bilirubin [Mass/Vol] 0.3 mg/dL Normal 0.2-1.0 [facility] Comment on above: Performed By: #### C MP ####[facility] Tbyzhvlvco[address] [place], [place] [address]Dr. Airam Tripathi Calcium [Mass/Vol] 8.0 mg/dL Critically low 8.5-10.1 [facility] Comment on above: Performed By: #### C MP ####[facility] Vlpmpkntqk038[address] [place], [place] [address]Dr. Airam Tripathi Chloride [Moles/Vol] 96 mmol/L Critically low 98-107 [facility] Comment on above: Performed By: #### C MP ####[facility] Ltznitnwsr4064[address] [place], [place] [address]Dr. Airam Deuce CO2 [Moles/Vol] 24.6 mmol/L Normal 21.0-32.0 [facility] Comment on above: Performed By: #### C MP ####[facility] Tidfoqogig4240[address] [place], [place] [address]Dr. Airam Tripathi Creatinine [Mass/Vol] 1.79 mg/dL Critically high 0.55-1.02 [facility] Comment on above: Performed By: #### C MP ####[facility] S[address]zbeabct2[address] [place] [address]Dr. Airam Tripathi EGFR-AF PANAMANIAN 35 mL/min/1.73m2 Critically low >=60 [facility] Comment on above: Performed By: #### C MP ####[facility] Nhqzyccwil1556 [place] [address]Dr. Airam Tripathi EGFR-NON AF PANAMANIAN 29 mL/min/1.73m2 Critically low >=60 [facility] Comment on above: Performed By: #### C MP ####[facility] Qvfhkvsaoe5020 [place] [address]Dr. Airam Tripathi Globulin (S) [Mass/Vol] 3.3 g/dL Normal [facility] Comment on above: Performed By: #### C MP ####[facility] Nhmcskqnzf5364[address] [place], [place] [address]Dr. Airam Tripathi Glucose [Mass/Vol] 58 mg/dL Critically low 74-106 [facility] Comment on above: Performed By: #### C MP ####[facility] Uthwyrhgay6206[address] [place], [place] [address]Dr. Airam Tripathi Potassium [Moles/Vol] 4.7 mmol/L Normal 3.5-5.1 [facility] Comment on above: Performed By: #### C MP ####[facility] Mslwvoxcsj1264[address] [place], [place] [address]Dr. Airam Tripathi Protein [Mass/Vol] 6.8 g/dL Normal 6.4-8.2 [facility] Comment on above: Performed By: #### C MP ####[facility] Hjhfelkilk99[address] [place] [address]Dr. Airam Tripathi Sodium [Moles/Vol] 130 mmol/L Critically low 136-145 [facility] Comment on above: Performed By: #### C MP ####[facility] Fyrrxvrfjj1613[address] [place], [place] [address]Dr. Airam Tripathi Urea nitrogen [Mass/Vol] 30.0 mg/dL Critically high 7.0-18.0 [facility] Comment on above: Performed By: #### C MP ####[facility] Aejrqroafx8799[address] [place], [place] [address]Dr. Airam Tripathi Urea nitrogen/Creatinine [Mass ratio] 16.8 mg/mg Normal [facility] Comment on above: Performed By: #### C MP ####[facility] Tikvpeeuqq04[address] [place], [place] [address]Dr. Airam Tripathi OSMOLALITYon 05-28-2022 Osmolality [Osmolality] 275 mosm/kg Normal 275-295 [facility] Comment on above: Performed By: #### O SMO ####[facility] Hhrkxnfddo6238[address] [place], [place] [address]Dr. Airam Tripathi CBC AUTO DIFFon 05-26-2022 BASO # 0.0 103/ul Normal 0.0-0.1 [facility] Comment on above: Performed By: #### C BC ####[facility] Fgakaonaof0039[address] [place], [place] [address]Dr. Airam Deuce Basophils/100 WBC (Bld) 0.4 % Normal 0.2-2.0 [facility] Comment on above: Performed By: #### C BC ####[facility] Ljjzuefioh0020[address] [place], [place] [address]Dr. Airam Tripathi EO # 0.3 103/ul Normal 0.0-0.7 [facility] Comment on above: Performed By: #### C BC ####[facility] Nzgeyrknoj9068[address] [place], [place] [address]Dr. Airam Deuce Eosinophils/100 WBC (Bld) 3.2 % Normal 0.9-7.0 [facility] Comment on above: Performed By: #### C BC ####[facility] Uloqswzpmv5[address] [place], [place] [address]Dr. Airam Tripathi Erythrocyte distribution width (RBC) [Ratio] 13.0 % Normal 11.0-15.0 [facility] Comment on above: Performed By: #### C BC ####[facility] Zmeffwpyme1450[address] [place], [place] [address]Dr. Airam Tripathi Hematocrit (Bld) [Volume fraction] 30.4 % Critically low 36.0-48.0 [facility] Comment on above: Performed By: #### C BC ####[facility] Zphvgqosar32[address] [place] [address]Dr. Airam Tripathi Hemoglobin (Bld) [Mass/Vol] 9.6 g/dL Critically low 12.0-16.0 [facility] Comment on above: Performed By: #### C BC ####[facility] Lbvccakuvh6181 [place] [address]Dr. Airam Tripathi IG # 0.06 10e3/ul Critically high 0.00-0.03 [facility] Comment on above: Performed By: #### C BC ####[facility] Ebnhhfksyk4160[address] [place], [place] [address]Dr. Airam Tripathi IG % 0.7 % Critically high 0.0-0.5 [facility] Comment on above: Performed By: #### C BC ####[facility] Umivdhyqap7910[address] [place], [place] [address]Dr. Airam Tripathi LYMPH # 1.9 103/ul Normal 1.2-3.8 [facility] Comment on above: Performed By: #### C BC ####[facility] Fettracrdb708[address] [place], [place] [address]Dr. Airam Tripathi Lymphocytes/100 WBC (Bld) 20.6 % Normal 20.5-60.0 [facility] Comment on above: Performed By: #### C BC ####[facility] Guazspubtv5854[address] [place], [place] [address]Dr. Airam Tripathi MANUAL DIFF REQ NO Normal [facility] Comment on above: Performed By: #### C BC ####[facility] Csdvjniptb8025[address] [place], [place] [address]Dr. Airam Tripathi MCH (RBC) [Entitic mass] 30.1 pg Normal 26.7-34.0 [facility] Comment on above: Performed By: #### C BC ####[facility] Fxxampxgmd1024[address] [place], [place] [address]Dr. Airam Tripathi MCHC (RBC) [Mass/Vol] 31.6 g/dL Normal 29.9-35.2 [facility] Comment on above: Performed By: #### C BC ####[facility] [address]sooxkkfby30[address] [place] [id number]. Airam Tripathi MCV (RBC) [Entitic vol] 95.3 fL Normal 81.0-99.0 [facility] Comment on above: Performed By: #### C BC ####[facility] Gyirtcxqte1835 [place] [id number]. Airam Tripathi MONO # 0.6 103/ul Normal 0.3-0.8 [facility] Comment on above: Performed By: #### C BC ####[facility] Zojxisbeiu4057 [place] [id number]. Airam Tripathi Monocytes/100 WBC (Bld) 6.9 % Normal 1.7-12.0 [facility] Comment on above: Performed By: #### C BC ####[facility] Krrpvcrdds6566 [place] [id number]. Airam Tripathi NEUT # 6.1 103/ul Normal 1.4-6.5 [facility] Comment on above: Performed By: #### C BC ####[facility] Vmuufnqxmd4062 [place] [phone]. Airam Tripathi Neutrophils/100 WBC (Bld) 68.2 % Normal 43.0-75.0 [facility] Comment on above: Performed By: #### C BC ####[facility] Lgmlpioifh9103 [place] [phone]. Airam Tripathi Platelet mean volume (Bld) [Entitic vol] 9.7 fL Normal 9.5-13.5 [facility] Comment on above: Performed By: #### C BC ####[facility] Ypfpnuohgg6489 [place] [phone]. Airam Tripathi PLT 317 103/ul Normal 150-450 [facility] Comment on above: Performed By: #### C BC ####[facility] Nkguubscds5543 [place] [phone]. Airam Tripathi RBC 3.19 106/ul Critically low 4.20-5.40 [facility] Comment on above: Performed By: #### C BC ####[facility] Bhkugsgtui5745 [place] [address]Dr. Airam Tripathi WBC 9.0 103/ul Normal 4.0-11.0 [facility] Comment on above: Performed By: #### C BC ####[facility] Foyyntvhva038[address] [place], [place] [address]Dr. Airam Tripathi PROF 14(COMP METB)on 022 Albumin [Mass/Vol] 3.4 g/dL Normal 3.4-5.0 [facility] Comment on above: Performed By: #### C MP ####[facility] Apydjynazn0226 [place] [address]Dr. Airam Tripathi Albumin/Globulin [Mass ratio] 1.0 {ratio} Normal [facility] Comment on above: Performed By: #### C MP ####[facility] Hlvrxgfnap8823[address] [place], [place] [address]Dr. Airam Tripathi ALP [Catalytic activity/Vol] 153 U/L Critically high 46-116 [facility] Comment on above: Performed By: #### C MP ####[facility] Fpxckjfyrv36[address] [place], [place] [address]Dr. Airam Tripathi ALT [Catalytic activity/Vol] 21 U/L Normal 14-59 [facility] Comment on above: Performed By: #### C MP ####[facility] Wolsrdveyk0523[address] [place], [place] [address]Dr. Airam Tripathi Anion gap [Moles/Vol] 13.6 mmol/L Normal [facility] Comment on above: Performed By: #### C MP ####[facility] Vjpkjeabfn7407[address] [place], [place] [address]Dr. Airam Tripathi AST [Catalytic activity/Vol] 23 U/L Normal 15-37 [facility] Comment on above: Performed By: #### C MP ####[facility] Lbywwwwppv7665[address] [place], [place] [address]Dr. Airam Tripathi Bilirubin [Mass/Vol] 0.2 mg/dL Normal 0.2-1.0 [facility] Comment on above: Performed By: #### C MP ####[facility] Thumtlgteo9391 [place] [phone]. Airam Tripathi Calcium [Mass/Vol] 8.4 mg/dL Critically low 8.5-10.1 [facility] Comment on above: Performed By: #### C MP ####[facility] Atouyrqhln0989 [place] [phone]. Airam Tripathi Chloride [Moles/Vol] 97 mmol/L Critically low 98-107 [facility] Comment on above: Performed By: #### C MP ####[facility] Smvjeiefhs5381 [place] [address]Dr. Airam Tripathi CO2 [Moles/Vol] 25.2 mmol/L Normal 21.0-32.0 [facility] Comment on above: Performed By: #### C MP ####[facility] Eecbuqgasu940[address] [place], [place] [address]Dr. Airam Tripathi Creatinine [Mass/Vol] 1.58 mg/dL Critically high 0.55-1.02 [facility] Comment on above: Performed By: #### C MP ####[facility] Ywmnckussg[address] [place], [place] [address]Dr. Airam Tripathi EGFR-AF PANAMANIAN 40 mL/min/1.73m2 Critically low >=60 [facility] Comment on above: Performed By: #### C MP ####[facility] Oshjgjxzzx439[address] [place], [place] [address]Dr. Airam Tripathi EGFR-NON AF PANAMANIAN 33 mL/min/1.73m2 Critically low >=60 [facility] Comment on above: Performed By: #### C MP ####[facility] Gfhckoipou9163 [place] [phone]. Airam Tripathi Globulin (S) [Mass/Vol] 3.4 g/dL Normal [facility] Comment on above: Performed By: #### C MP ####[facility] Rkwzxntodk3287 [place] [address]Dr. Airam Tripathi Glucose [Mass/Vol] 74 mg/dL Normal 74-106 [facility] Comment on above: Performed By: #### C MP ####[facility] Flmpxyeirt5521 [place] [address]Dr. Airam Tripathi Potassium [Moles/Vol] 4.8 mmol/L Normal 3.5-5.1 [facility] Comment on above: Performed By: #### C MP ####[facility] Vwowcjrxsf8516 [place] [address]Dr. Airam Tripathi Protein [Mass/Vol] 6.8 g/dL Normal 6.4-8.2 [facility] Comment on above: Performed By: #### C MP ####[facility] Lkogvsbayy8933 [place] [address]Dr. Airam Tripathi Sodium [Moles/Vol] 131 mmol/L Critically low 136-145 [facility] Comment on above: Performed By: #### C MP ####[facility] Aufozshklw6560[address] [place], [place] [address]Dr. Airam Tripathi Urea nitrogen [Mass/Vol] 31.0 mg/dL Critically high 7.0-18.0 [facility] Comment on above: Performed By: #### C MP ####[facility] Duqfwbnmxt194[address] [place], [place] [address]Dr. Airam Tripathi Urea nitrogen/Creatinine [Mass ratio] 19.6 mg/mg Normal [facility] Comment on above: Performed By: #### C MP ####[facility] Uwmbuhwxvy937[address] [place], [place] [address]Dr. Airam Tripathi OSMOLALITYon 05-19-2022 Osmolality [Osmolality] 281 mosm/kg Normal 275-295 [facility] Comment on above: Performed By: #### O SMO ####[facility] Fntobopnbk95[address] [place], [place] [address]Dr. Airam Tripathi CBC AUTO DIFFon 05-17-2022 BASO # 0.1 103/ul Normal 0.0-0.1 [facility] Comment on above: Performed By: #### C BC ####[facility] Umsecsjttr7926 [place] [phone]. Airam Tripathi Basophils/100 WBC (Bld) 0.6 % Normal 0.2-2.0 [facility] Comment on above: Performed By: #### C BC ####[facility] Pdxjzwvdnl0336 [place] [phone]. Airam Tripathi EO # 0.2 103/ul Normal 0.0-0.7 [facility] Comment on above: Performed By: #### C BC ####[facility] Hzlexufspw1888 [place] [phone]. Airam Tripathi Eosinophils/100 WBC (Bld) 1.9 % Normal 0.9-7.0 [facility] Comment on above: Performed By: #### C BC ####[facility] Rmfklhpdca35[address] [place], [place] [address]Dr. Airam Tripathi Erythrocyte distribution width (RBC) [Ratio] 12.9 % Normal 11.0-15.0 [facility] Comment on above: Performed By: #### C BC ####[facility] Qmqgploqhc5[address] [place], [place] [address]Dr. Airam Tripathi Hematocrit (Bld) [Volume fraction] 32.1 % Critically low 36.0-48.0 [facility] Comment on above: Performed By: #### C BC ####[facility] Kvofkquxdd4410[address] [place], [place] [address]Dr. Airam Tripathi Hemoglobin (Bld) [Mass/Vol] 9.9 g/dL Critically low 12.0-16.0 [facility] Comment on above: Performed By: #### C BC ####[facility] Fxydnxwokw0659[address] [place], [place] [address]Dr. Airam Tripathi IG # 0.05 10e3/ul Critically high 0.00-0.03 [facility] Comment on above: Performed By: #### C BC ####[facility] Bakovankub0704[address] [place], [place] [address]Dr. Airam Tripathi IG % 0.6 % Critically high 0.0-0.5 [facility] Comment on above: Performed By: #### C BC ####[facility] Aonsorflfd1960[address] [place], [place] [address]Dr. Airam Tripathi LYMPH # 1.3 103/ul Normal 1.2-3.8 [facility] Comment on above: Performed By: #### C BC ####[facility] Dzqqybquof1422 [place] [phone]. Airam Deuce Lymphocytes/100 WBC (Bld) 15.2 % Critically low 20.5-60.0 [facility] Comment on above: Performed By: #### C BC ####[facility] Kboscwlclg32[address] [place] [address]Dr. Airam Tripathi MANUAL DIFF REQ NO Normal [facility] Comment on above: Performed By: #### C BC ####[facility] Skxoxksskr24[address] [place], [place] [address]Dr. Airam Deuce MCH (RBC) [Entitic mass] 30.0 pg Normal 26.7-34.0 [facility] Comment on above: Performed By: #### C BC ####[facility] Jcquumroid882[address] [place], [place] [address]Dr. Selenaneil Tripathi MCHC (RBC) [Mass/Vol] 30.8 g/dL Normal 29.9-35.2 [facility] Comment on above: Performed By: #### C BC ####[facility] Otjxygbqnv080[address] [place], [place] [address]Dr. Selenaneil Tripathi MCV (RBC) [Entitic vol] 97.3 fL Normal 81.0-99.0 [facility] Comment on above: Performed By: #### C BC ####[facility] Eiwvmokouu2[address] [place], [place] [address]Dr. Airam Tripathi MONO # 0.5 103/ul Normal 0.3-0.8 [facility] Comment on above: Performed By: #### C BC ####[facility] Efqwfkgazt24[address] [place], [place] [address]Dr. Airam Tripathi Monocytes/100 WBC (Bld) 5.4 % Normal 1.7-12.0 [facility] Comment on above: Performed By: #### C BC ####[facility] Nxxgcjvnww619[address] [place], [place] [address]Dr. Airam Tripathi NEUT # 6.5 103/ul Normal 1.4-6.5 [facility] Comment on above: Performed By: #### C BC ####[facility] Igakablykw3582 [place] [phone]. Airam Tripathi Neutrophils/100 WBC (Bld) 76.3 % Critically high 43.0-75.0 [facility] Comment on above: Performed By: #### C BC ####[facility] Bzlhcixqyn4580 [place] [phone]. Airam Tripathi Platelet mean volume (Bld) [Entitic vol] 10.1 fL Normal 9.5-13.5 [facility] Comment on above: Performed By: #### C BC ####[facility] Wdxtxtzgpg94[address] [place] [address]Dr. Airam Tripathi PLT 284 103/ul Normal 150-450 [facility] Comment on above: Performed By: #### C BC ####[facility] Ruxgbwttxt09[address] [place] [address]Dr. Airam Tripathi RBC 3.30 106/ul Critically low 4.20-5.40 [facility] Comment on above: Performed By: #### C BC ####[facility] Hvtffezyiy96[address] [place], [place] [address]Dr. Airam Tripathi WBC 8.5 103/ul Normal 4.0-11.0 [facility] Comment on above: Performed By: #### C BC ####[facility] Xgtrztxlnj[address] [place] [address]Dr. Airam Tripathi PROF 14(COMP METB)on 022 Albumin [Mass/Vol] 3.1 g/dL Critically low 3.4-5.0 [facility] Comment on above: Performed By: #### C MP ####[facility] Clpmbqqcvx4[address] [place] [address]Dr. Airam Tripathi Albumin/Globulin [Mass ratio] 0.9 {ratio} Normal [facility] Comment on above: Performed By: #### C MP ####[facility] Kgbyqxxgyv49[address] [place] [address]Dr. Airam Tripathi ALP [Catalytic activity/Vol] 162 U/L Critically high 46-116 [facility] Comment on above: Performed By: #### C MP ####[facility] Fzepwfuuhb[address] [place] [id number]. Airam Tripathi ALT [Catalytic activity/Vol] 22 U/L Normal 14-59 [facility] Comment on above: Performed By: #### C MP ####[facility] Iqrpzzwdyk6835 [place] [id number]. Airam Tripathi Anion gap [Moles/Vol] 9.4 mmol/L Normal [facility] Comment on above: Performed By: #### C MP ####[facility] Ldtlgcbgrd69[address] [place], [place] [address]Dr. Airam Tripathi AST [Catalytic activity/Vol] 26 U/L Normal 15-37 [facility] Comment on above: Performed By: #### C MP ####[facility] Wlgazyawch18[address] [place], [place] [address]Dr. Airam Tripathi Bilirubin [Mass/Vol] 0.2 mg/dL Normal 0.2-1.0 [facility] Comment on above: Performed By: #### C MP ####[facility] Anyayaamsk506[address] [place], [place] [address]Dr. Airam Tripathi Calcium [Mass/Vol] 8.2 mg/dL Critically low 8.5-10.1 [facility] Comment on above: Performed By: #### C MP ####[facility] Luvgxyxxzt259[address] [place], [place] [address]Dr. Airam Tripathi Chloride [Moles/Vol] 103 mmol/L Normal 98-107 [facility] Comment on above: Performed By: #### C MP ####[facility] Axsfnhtzfc034[address] [place], [place] [id number]. Airam Tripathi CO2 [Moles/Vol] 24.8 mmol/L Normal 21.0-32.0 [facility] Comment on above: Performed By: #### C MP ####[facility] Gzzsspjjet07[address] [place], [place] [address]Dr. Airam Tripathi Creatinine [Mass/Vol] 1.19 mg/dL Critically high 0.55-1.02 [facility] Comment on above: Performed By: #### C MP ####[facility] Ndtmqphpea72[address] [place] [id number]. Airam Tripathi EGFR-AF PANAMANIAN 56 mL/min/1.73m2 Critically low >=60 [facility] Comment on above: Performed By: #### C MP ####[facility] Gtbrxeqshw3293 [place] [id number]. Airam Tripathi EGFR-NON AF PANAMANIAN 46 mL/min/1.73m2 Critically low >=60 [facility] Comment on above: Performed By: #### C MP ####[facility] Shxsaylcbu3878 [place] [address]Dr. Airam Tripathi Globulin (S) [Mass/Vol] 3.6 g/dL Normal [facility] Comment on above: Performed By: #### C MP ####[facility] Ikgvizdsvl9866 [place] [address]Dr. Airam Tripathi Glucose [Mass/Vol] 75 mg/dL Normal 74-106 [facility] Comment on above: Performed By: #### C MP ####[facility] Dcehzegvpx8962 [place] [address]Dr. Airam Tripathi Potassium [Moles/Vol] 5.2 mmol/L Critically high 3.5-5.1 [facility] Comment on above: Performed By: #### C MP ####[facility] Ksvwmwmmwb0754 [place] [address]Dr. Airam Tripathi Protein [Mass/Vol] 6.7 g/dL Normal 6.4-8.2 [facility] Comment on above: Performed By: #### C MP ####[facility] Jodzqsbdhw0689 [place] [address]Dr. Selenaneil Tripathi Sodium [Moles/Vol] 132 mmol/L Critically low 136-145 [facility] Comment on above: Performed By: #### C MP ####[facility] Mylesezqhz8838 [place] [address]Dr. Selenaneil Deuce Urea nitrogen [Mass/Vol] 28.0 mg/dL Critically high 7.0-18.0 [facility] Comment on above: Performed By: #### C MP ####[facility] Vrdnylaqkd6036 [place] [address]Dr. Airam Tripathi Urea nitrogen/Creatinine [Mass ratio] 23.5 mg/mg Normal [facility] Comment on above: Performed By: #### C MP ####[facility] Sobldwyxoz[address] [place], [place] [address]Dr. Airam Tripathi OSMOLALITYon 05-16-2022 Osmolality [Osmolality] 281 mosm/kg Normal 275-295 [facility] Comment on above: Performed By: #### O SMO ####[facility] Coupsjphju7828[address] [place], [place] [address]Dr. Airam Deuce CBC AUTO DIFFon 05-13-2022 BASO # 0.1 103/ul Normal 0.0-0.1 [facility] Comment on above: Performed By: #### C BC ####[facility] Zcdznnmwhw2860[address] [place], [place] [address]Dr. Selenaneil Tripathi Basophils/100 WBC (Bld) 0.5 % Normal 0.2-2.0 [facility] Comment on above: Performed By: #### C BC ####[facility] Idwnsfzqpc335133 [address] [place], [place] [address]Dr. Airam Deuce EO # 0.2 103/ul Normal 0.0-0.7 [facility] Comment on above: Performed By: #### C BC ####[facility] Zvckefvegm5394[address] [place], [place] [address]Dr. Selenaneil Tripathi Eosinophils/100 WBC (Bld) 2.1 % Normal 0.9-7.0 [facility] Comment on above: Performed By: #### C BC ####[facility] Fwqmbreaeu429[address] [place], [place] [address]Dr. Selenaneil Tripathi Erythrocyte distribution width (RBC) [Ratio] 12.9 % Normal 11.0-15.0 [facility] Comment on above: Performed By: #### C BC ####[facility] Rkovogbywn3285[address] [place], [place] [address]Dr. Airam Tripathi Hematocrit (Bld) [Volume fraction] 31.9 % Critically low 36.0-48.0 [facility] Comment on above: Performed By: #### C BC ####[facility] Qqjufkxmnq5008 [place] [address]Dr. Airam Tripathi Hemoglobin (Bld) [Mass/Vol] 9.7 g/dL Critically low 12.0-16.0 [facility] Comment on above: Performed By: #### C BC ####[facility] Ljpaxfjhxx9820 [place] [address]Dr. Airam Tripathi IG # 0.06 10e3/ul Critically high 0.00-0.03 [facility] Comment on above: Performed By: #### C BC ####[facility] Ajcgqfsdru527[address] [place], [place] [address]Dr. Airam Tripathi IG % 0.7 % Critically high 0.0-0.5 [facility] Comment on above: Performed By: #### C BC ####[facility] Wficgeavsg340[address] [place], [place] [address]Dr. Airam Tripathi LYMPH # 1.9 103/ul Normal 1.2-3.8 [facility] Comment on above: Performed By: #### C BC ####[facility] Gomverozxg3208[address] [place], [place] [address]Dr. Airam Tripathi Lymphocytes/100 WBC (Bld) 21.1 % Normal 20.5-60.0 [facility] Comment on above: Performed By: #### C BC ####[facility] Oxejwhsvoq897[address] [place], [place] [address]Dr. Airam Tripathi MANUAL DIFF REQ NO Normal [facility] Comment on above: Performed By: #### C BC ####[facility] Goaowqxmri3223[address] [place], [place] [address]Dr. Airam Tripathi MCH (RBC) [Entitic mass] 29.7 pg Normal 26.7-34.0 [facility] Comment on above: Performed By: #### C BC ####[facility] Edxzksjnxr399133 [address] [place], [place] [address]Dr. Airam Tripathi MCHC (RBC) [Mass/Vol] 30.4 g/dL Normal 29.9-35.2 [facility] Comment on above: Performed By: #### C BC ####[facility] Qardsoxhbu4284 [place] [id number]. Airam Tripathi MCV (RBC) [Entitic vol] 97.6 fL Normal 81.0-99.0 [facility] Comment on above: Performed By: #### C BC ####[facility] Kmnzztzhay2982 [place] [id number]. Airam Tripathi MONO # 0.6 103/ul Normal 0.3-0.8 [facility] Comment on above: Performed By: #### C BC ####[facility] Jjxzizwgbn1324 [place] [id number]. Airam Deuce Monocytes/100 WBC (Bld) 6.8 % Normal 1.7-12.0 [facility] Comment on above: Performed By: #### C BC ####[facility] Ocohmpeiro6325[address] [place], [place] [address]Dr. Airam Tripathi NEUT # 6.3 103/ul Normal 1.4-6.5 [facility] Comment on above: Performed By: #### C BC ####[facility] Qjncoasmaw[address] [place], [place] [address]Dr. Selenaneil Tripathi Neutrophils/100 WBC (Bld) 68.8 % Normal 43.0-75.0 [facility] Comment on above: Performed By: #### C BC ####[facility] Pnnpjrchpb[address] [place], [place] [address]Dr. Airam Deuce Platelet mean volume (Bld) [Entitic vol] 9.6 fL Normal 9.5-13.5 [facility] Comment on above: Performed By: #### C BC ####[facility] Ziyufnwvvu94[address] [place], [place] [address]Dr. Selenaneil Deuce PLT 295 103/ul Normal 150-450 [facility] Comment on above: Performed By: #### C BC ####[facility] Mhotsaxgiz6931 [place] [phone]. Airam Tripathi RBC 3.27 106/ul Critically low 4.20-5.40 [facility] Comment on above: Performed By: #### C BC ####[facility] Gpfbzwkkxn9684 [place] [address]Dr. Airam Tripathi WBC 9.1 103/ul Normal 4.0-11.0 [facility] Comment on above: Performed By: #### C BC ####[facility] Nmoksgjibt4846 [place] [address]Dr. Airam Tripathi PROF 14(COMP METB)on 05-13- 022 Albumin [Mass/Vol] 3.3 g/dL Critically low 3.4-5.0 [facility] Comment on above: Performed By: #### C MP ####[facility] Vakpxvdqrz3147[address] [place], [place] [address]Dr. Airam Tripathi Albumin/Globulin [Mass ratio] 1.0 {ratio} Normal [facility] Comment on above: Performed By: #### C MP ####[facility] Omirqegrck485[address] [place], [place] [address]Dr. Airam Tripathi ALP [Catalytic activity/Vol] 152 U/L Critically high 46-116 [facility] Comment on above: Performed By: #### C MP ####[facility] Lmjdevjoud984[address] [place], [place] [address]Dr. Airam Tripathi ALT [Catalytic activity/Vol] 23 U/L Normal 14-59 [facility] Comment on above: Performed By: #### C MP ####[facility] Mnndndqbzp8797[address] [place], [place] [address]Dr. Airam Tripathi Anion gap [Moles/Vol] 12.0 mmol/L Normal [facility] Comment on above: Performed By: #### C MP ####[facility] Degftgldry5115[address] [place], [place] [address]Dr. Airam Tripathi AST [Catalytic activity/Vol] 25 U/L Normal 15-37 [facility] Comment on above: Performed By: #### C MP ####[facility] Yrzbndrckt0055[address] [place], [place] [address]Dr. Airam Tripathi Bilirubin [Mass/Vol] 0.2 mg/dL Normal 0.2-1.0 [facility] Comment on above: Performed By: #### C MP ####[facility] Kgybtgtpvk7754 [place] [id number]. Airam Tripathi Calcium [Mass/Vol] 8.2 mg/dL Critically low 8.5-10.1 [facility] Comment on above: Performed By: #### C MP ####[facility] Uocpzogzer0581 [place] [address]Dr. Airam Tripathi Chloride [Moles/Vol] 100 mmol/L Normal 98-107 [facility] Comment on above: Performed By: #### C MP ####[facility] Ubovjwpsha9683 [place] [address]Dr. Airam Tripathi CO2 [Moles/Vol] 24.8 mmol/L Normal 21.0-32.0 [facility] Comment on above: Performed By: #### C MP ####[facility] Obxnxzfuyf023[address] [place], [place] [address]Dr. Airam Tripathi Creatinine [Mass/Vol] 1.46 mg/dL Critically high 0.55-1.02 [facility] Comment on above: Performed By: #### C MP ####[facility] Srvryswteq7988[address] [place], [place] [address]Dr. Airam Tripathi EGFR-AF PANAMANIAN 44 mL/min/1.73m2 Critically low >=60 [facility] Comment on above: Performed By: #### C MP ####[facility] Dhijxzpzcz178[address] [place], [place] [address]Dr. Airam Tripathi EGFR-NON AF PANAMANIAN 37 mL/min/1.73m2 Critically low >=60 [facility] Comment on above: Performed By: #### C MP ####[facility] Uztvjgbknw5264[address] [place], [place] [address]Dr. Airam Tripathi Globulin (S) [Mass/Vol] 3.3 g/dL Normal [facility] Comment on above: Performed By: #### C MP ####[facility] Jmrvkvugvn1788[address] [place], [place] [address]Dr. Airam Tripathi Glucose [Mass/Vol] 86 mg/dL Normal 74-106 [facility] Comment on above: Performed By: #### C MP ####[facility] Rslqeydviu8465 [place] [address]Dr. Airam Tripathi Potassium [Moles/Vol] 4.8 mmol/L Normal 3.5-5.1 [facility] Comment on above: Performed By: #### C MP ####[facility] Xwwybrlrnf4271 [place] [address]Dr. Selenaneil Deuce Protein [Mass/Vol] 6.6 g/dL Normal 6.4-8.2 [facility] Comment on above: Performed By: #### C MP ####[facility] Gejyxpcxub7127[address] [place], [place] [address]Dr. Selenaneil Deuce Sodium [Moles/Vol] 132 mmol/L Critically low 136-145 [facility] Comment on above: Performed By: #### C MP ####[facility] Lsjkwzoazq4987[address] [place], [place] [address]Dr. Airam Tripathi Urea nitrogen [Mass/Vol] 34.0 mg/dL Critically high 7.0-18.0 [facility] Comment on above: Performed By: #### C MP ####[facility] Fqltvgrhlm1674[address] [place], [place] [address]Dr. Airam Deuce Urea nitrogen/Creatinine [Mass ratio] 23.3 mg/mg Normal [facility] Comment on above: Performed By: #### C MP ####[facility] Tyyefkyiap7028[address] [place], [place] [address]Dr. Airam Tripathi OSMOLALITYon 05-06-2022 Osmolality [Osmolality] 284 mosm/kg Normal 275-295 [facility] Comment on above: Performed By: #### O SMO ####[facility] Ldmtqrynut9928[address] [place], [place] [address]Dr. Airam Tripathi XR LSPINE MIN 4 VIEWSon 11 XR LSPINE MIN 4 VIEWS Normal [facility] CBC AUTO DIFFon 05-03-2022 BASO # 0.1 103/ul Normal 0.0-0.1 [facility] Comment on above: Performed By: #### C BC ####[facility] Zljrlqmnzc8037[address] [place], [place] [address]Dr. Airam Tripathi Basophils/100 WBC (Bld) 0.6 % Normal 0.2-2.0 [facility] Comment on above: Performed By: #### C BC ####[facility] Cmwuderuuz59[address] [place], [place] [address]Dr. Airam Tripathi EO # 0.3 103/ul Normal 0.0-0.7 [facility] Comment on above: Performed By: #### C BC ####[facility] Nvoqpcdjhy3236[address] [place], [place] [address]Dr. Airam Tripathi Eosinophils/100 WBC (Bld) 4.2 % Normal 0.9-7.0 [facility] Comment on above: Performed By: #### C BC ####[facility] Omctbojezz6858[address] [place], [place] [address]Dr. Airam Tripathi Erythrocyte distribution width (RBC) [Ratio] 13.4 % Normal 11.0-15.0 [facility] Comment on above: Performed By: #### C BC ####[facility] Ufnanhhepf4099[address] [place], [place] [address]Dr. Aiarm Tripathi Hematocrit (Bld) [Volume fraction] 30.7 % Critically low 36.0-48.0 [facility] Comment on above: Performed By: #### C BC ####[facility] Iidjoekvoj6[address] [place], [place] [address]Dr. Airam Tripathi Hemoglobin (Bld) [Mass/Vol] 9.6 g/dL Critically low 12.0-16.0 [facility] Comment on above: Performed By: #### C BC ####[facility] Dqsxiqvjua04[address] [place], [place] [address]Dr. Airam Tripathi IG # 0.05 10e3/ul Critically high 0.00-0.03 [facility] Comment on above: Performed By: #### C BC ####[facility] Wmezsnjhdr020[address] [place], [place] [address]Dr. Airam Tripathi IG % 0.6 % Critically high 0.0-0.5 [facility] Comment on above: Performed By: #### C BC ####[facility] Uvyxortnfq2305 [place] [id number]. Selenaneil Tripathi LYMPH # 1.9 103/ul Normal 1.2-3.8 [facility] Comment on above: Performed By: #### C BC ####[facility] Ufgylwkzmn5135 [place] [address]Dr. Airam Tripathi Lymphocytes/100 WBC (Bld) 23.5 % Normal 20.5-60.0 [facility] Comment on above: Performed By: #### C BC ####[facility] Cplbghxewz9317 [place] [address]Dr. Airam Tripathi MANUAL DIFF REQ NO Normal [facility] Comment on above: Performed By: #### C BC ####[facility] Vlotdpogdd2334 [place] [address]Dr. Selenaneil Tripathi MCH (RBC) [Entitic mass] 30.8 pg Normal 26.7-34.0 [facility] Comment on above: Performed By: #### C BC ####[facility] Cdnvhuqety20[address] [place], [place] [address]Dr. Selenaneil Tripathi MCHC (RBC) [Mass/Vol] 31.3 g/dL Normal 29.9-35.2 [facility] Comment on above: Performed By: #### C BC ####[facility] Vbfrdvmdym5872 [place] [address]Dr. Airam Tripathi MCV (RBC) [Entitic vol] 98.4 fL Normal 81.0-99.0 [facility] Comment on above: Performed By: #### C BC ####[facility] Vcezzbpdyy8925 [place] [address]Dr. Airam Tripathi MONO # 0.6 103/ul Normal 0.3-0.8 [facility] Comment on above: Performed By: #### C BC ####[facility] Hfqfwchvde373[address] [place], [place] [address]Dr. Airam Tripathi Monocytes/100 WBC (Bld) 7.4 % Normal 1.7-12.0 [facility] Comment on above: Performed By: #### C BC ####[facility] Eesfaclwvl0051 [place] [address]Dr. Airam Tripathi NEUT # 5.0 103/ul Normal 1.4-6.5 [facility] Comment on above: Performed By: #### C BC ####[facility] Fluryueywt2053 [place] [address]Dr. Airam Tripathi Neutrophils/100 WBC (Bld) 63.7 % Normal 43.0-75.0 [facility] Comment on above: Performed By: #### C BC ####[facility] Xpjeehtjdt3357 [place] [address]Dr. Airam Tripathi Platelet mean volume (Bld) [Entitic vol] 9.5 fL Normal 9.5-13.5 [facility] Comment on above: Performed By: #### C BC ####[facility] Wxhpqkxulp216[address] [place], [place] [address]Dr. Airam Deuce PLT 280 103/ul Normal 150-450 [facility] Comment on above: Performed By: #### C BC ####[facility] Prrvzwnkhw4707[address] [place], [place] [address]Dr. Airam Deuce RBC 3.12 106/ul Critically low 4.20-5.40 [facility] Comment on above: Performed By: #### C BC ####[facility] Bxqyqhusbv148[address] [place], [place] [address]Dr. Airam Tripathi WBC 7.9 103/ul Normal 4.0-11.0 [facility] Comment on above: Performed By: #### C BC ####[facility] Ibaylvebeq0020[address] [place], [place] [address]DrKianna Tripathi PROF 14(COMP METB)on 022 Albumin [Mass/Vol] 3.1 g/dL Critically low 3.4-5.0 [facility] Comment on above: Performed By: #### C MP ####[facility] Jibjpdchaf68[address] [place] [address]Dr. Selenaneil Deuce Albumin/Globulin [Mass ratio] 0.9 {ratio} Normal [facility] Comment on above: Performed By: #### C MP ####[facility] Nrmirhdhlf2949 [place] [address]Dr. Airam Tripathi ALP [Catalytic activity/Vol] 140 U/L Critically high 46-116 [facility] Comment on above: Performed By: #### C MP ####[facility] Hswkskjtel1926[address] [place], [place] [address]Dr. Airam Tripathi ALT [Catalytic activity/Vol] 24 U/L Normal 14-59 [facility] Comment on above: Performed By: #### C MP ####[facility] Xyfdatcfue189[address] [place], [place] [address]Dr. Airam Deuce Anion gap [Moles/Vol] 11.2 mmol/L Normal [facility] Comment on above: Performed By: #### C MP ####[facility] Ttviesbvgi7050[address] [place], [place] [address]Dr. Airam Deuce AST [Catalytic activity/Vol] 26 U/L Normal 15-37 [facility] Comment on above: Performed By: #### C MP ####[facility] Vuswbdffhy732[address] [place], [place] [address]Dr. Airam Deuce Bilirubin [Mass/Vol] 0.2 mg/dL Normal 0.2-1.0 [facility] Comment on above: Performed By: #### C MP ####[facility] Jdbyundheh00[address] [place], [place] [address]Dr. Airam Deuce Calcium [Mass/Vol] 8.3 mg/dL Critically low 8.5-10.1 [facility] Comment on above: Performed By: #### C MP ####[facility] Uhpnnlgusb8007[address] [place], [place] [address]Dr. Airam Deuce Chloride [Moles/Vol] 101 mmol/L Normal 98-107 [facility] Comment on above: Performed By: #### C MP ####[facility] Rsbiqddlmj9949[address] [place], [place] [address]Dr. Airam Deuce CO2 [Moles/Vol] 25.5 mmol/L Normal 21.0-32.0 [facility] Comment on above: Performed By: #### C MP ####[facility] Ilcbwqvdtp0967[address] [place], [place] [address]Dr. Airam Tripathi Creatinine [Mass/Vol] 1.43 mg/dL Critically high 0.55-1.02 [facility] Comment on above: Performed By: #### C MP ####[facility] Msumjhhuet46[address] [place] [address]Dr. Selenaneil Deuce EGFR-AF PANAMANIAN 45 mL/min/1.73m2 Critically low >=60 [facility] Comment on above: Performed By: #### C MP ####[facility] Pdnwzplzjd6848 [place] [address]Dr. Airam Tripathi EGFR-NON AF PANAMANIAN 37 mL/min/1.73m2 Critically low >=60 [facility] Comment on above: Performed By: #### C MP ####[facility] Unxwdqhkrq4425[address] [place], [place] [address]Dr. Airam Tripathi Globulin (S) [Mass/Vol] 3.3 g/dL Normal [facility] Comment on above: Performed By: #### C MP ####[facility] Dsdqbhdopb6[address] [place], [place] [address]Dr. Airam Tripathi Glucose [Mass/Vol] 74 mg/dL Normal 74-106 [facility] Comment on above: Performed By: #### C MP ####[facility] Mkvsuzqzny[address] [place], [place] [address]Dr. Airam Tripathi Potassium [Moles/Vol] 4.7 mmol/L Normal 3.5-5.1 [facility] Comment on above: Performed By: #### C MP ####[facility] Rdowmumhnm585[address] [place], [place] [address]Dr. Airam Tripathi Protein [Mass/Vol] 6.4 g/dL Normal 6.4-8.2 [facility] Comment on above: Performed By: #### C MP ####[facility] Tkxphpmjsz50[address] [place], [place] [address]Dr. Airam Tripathi Sodium [Moles/Vol] 133 mmol/L Critically low 136-145 [facility] Comment on above: Performed By: #### C MP ####[facility] Ucmgntfrbj[address] [place], [place] [address]Dr. Airam Tripathi Urea nitrogen [Mass/Vol] 38.0 mg/dL Critically high 7.0-18.0 [facility] Comment on above: Performed By: #### C MP ####[facility] Oxzgomvvdd059[address] [place], [place] [address]Dr. Airam Tripathi Urea nitrogen/Creatinine [Mass ratio] 26.6 mg/mg Normal [facility] Comment on above: Performed By: #### C MP ####[facility] Nrhdinyipc25[address] [place], [place] [address]Dr. Airam Tripathi OSMOLALITYon 04-29-2022 Osmolality [Osmolality] 292 mosm/kg Normal 275-295 [facility] Comment on above: Performed By: #### O SMO ####[facility] Qsvdmzdavr3090[address] [place], [place] [address]Dr. Airam Tripathi CBC AUTO DIFFon 04-28-2022 BASO # 0.0 103/ul Normal 0.0-0.1 [facility] Comment on above: Performed By: #### C BC ####[facility] Jnnoncozel654[address] [place], [place] [address]Dr. Airam Tripathi Basophils/100 WBC (Bld) 0.5 % Normal 0.2-2.0 [facility] Comment on above: Performed By: #### C BC ####[facility] Irbwrucsux175[address] [place], [place] [address]Dr. Airam Tripathi EO # 0.2 103/ul Normal 0.0-0.7 [facility] Comment on above: Performed By: #### C BC ####[facility] Pbnvrazmih1534[address] [place], [place] [address]Dr. Airam Tripathi Eosinophils/100 WBC (Bld) 3.4 % Normal 0.9-7.0 [facility] Comment on above: Performed By: #### C BC ####[facility] Kpwkrovjou1539[address] [place], [place] [address]Dr. Airam Tripathi Erythrocyte distribution width (RBC) [Ratio] 13.4 % Normal 11.0-15.0 [facility] Comment on above: Performed By: #### C BC ####[facility] [address]igc[address] [place] [address]Dr. Airam Tripathi Hematocrit (Bld) [Volume fraction] 31.6 % Critically low 36.0-48.0 [facility] Comment on above: Performed By: #### C BC ####[facility] Vszjhclsqs4277 [place] [address]Dr. Airam Deuce Hemoglobin (Bld) [Mass/Vol] 9.8 g/dL Critically low 12.0-16.0 [facility] Comment on above: Performed By: #### C BC ####[facility] Jjfgzegekn2901 [place] [address]Dr. Airam Tripathi IG # 0.02 10e3/ul Normal 0.00-0.03 [facility] Comment on above: Performed By: #### C BC ####[facility] Krfbtklylf5901[address] [place], [place] [address]Dr. Airam Tripathi IG % 0.3 % Normal 0.0-0.5 [facility] Comment on above: Performed By: #### C BC ####[facility] Weioebaisu8250 [place] [address]Dr. Airam Tripathi LYMPH # 1.3 103/ul Normal 1.2-3.8 [facility] Comment on above: Performed By: #### C BC ####[facility] Sbsrnxqmdi7324[address] [place], [place] [address]Dr. Airam Tripathi Lymphocytes/100 WBC (Bld) 21.7 % Normal 20.5-60.0 [facility] Comment on above: Performed By: #### C BC ####[facility] Cqpdsvcfjy207[address] [place], [place] [address]Dr. Selenaneil Tripathi MANUAL DIFF REQ NO Normal [facility] Comment on above: Performed By: #### C BC ####[facility] Bzexyloiix9440[address] [place], [place] [address]Dr. Selenaneil Tripathi MCH (RBC) [Entitic mass] 30.7 pg Normal 26.7-34.0 [facility] Comment on above: Performed By: #### C BC ####[facility] Qekkjrzsyf[address] [place], [place] [id number]. Airam Tripathi MCHC (RBC) [Mass/Vol] 31.0 g/dL Normal 29.9-35.2 [facility] Comment on above: Performed By: #### C BC ####[facility] Dybdaaorwd9767 [place] [id number]. Airam Tripathi MCV (RBC) [Entitic vol] 99.1 fL Critically high 81.0-99.0 [facility] Comment on above: Performed By: #### C BC ####[facility] Z[address]lbwspu[address] [place] [id number]. Airam Deuce MONO # 0.3 103/ul Normal 0.3-0.8 [facility] Comment on above: Performed By: #### C BC ####[facility] Htkxatbxkm2298 [place] [address]Dr. Selenaneil Tripathi Monocytes/100 WBC (Bld) 5.2 % Normal 1.7-12.0 [facility] Comment on above: Performed By: #### C BC ####[facility] Afvwskyoig9050[address] [place], [place] [address]Dr. Airam Deuce NEUT # 4.1 103/ul Normal 1.4-6.5 [facility] Comment on above: Performed By: #### C BC ####[facility] Vmtemiudjt5755 [place] [phone]. Airam Deuce Neutrophils/100 WBC (Bld) 68.9 % Normal 43.0-75.0 [facility] Comment on above: Performed By: #### C BC ####[facility] Njglaipdic5257 [place] [address]Dr. Airam Deuce Platelet mean volume (Bld) [Entitic vol] 9.8 fL Normal 9.5-13.5 [facility] Comment on above: Performed By: #### C BC ####[facility] Dsbnqhuuhw4591 [place] [phone]. Airam Deuce PLT 329 103/ul Normal 150-450 [facility] Comment on above: Performed By: #### C BC ####[facility] Lgyoefawfz6671 [place] [address]Dr. Airam Deuce RBC 3.19 106/ul Critically low 4.20-5.40 [facility] Comment on above: Performed By: #### C BC ####[facility] Ewalbhyiav[address] [place] [address]Dr. Selenaneil Deuce WBC 5.9 103/ul Normal 4.0-11.0 [facility] Comment on above: Performed By: #### C BC ####[facility] Vimyhaqvxp300[address] [place], [place] [address]Dr. Airam Tripathi PROF 14(COMP METB)on 022 Albumin [Mass/Vol] 2.9 g/dL Critically low 3.4-5.0 Th e [facility] Comment on above: Performed By: #### C MP ####[facility] Ipktawdxvx4367[address] [place], [place] [address]Dr. Airam Tripathi Albumin/Globulin [Mass ratio] 0.9 {ratio} Normal [facility] Comment on above: Performed By: #### C MP ####[facility] Aeqyklydcn3978[address] [place], [place] [address]Dr. Selenaneil Tripathi ALP [Catalytic activity/Vol] 127 U/L Critically high 46-116 [facility] Comment on above: Performed By: #### C MP ####[facility] Ktcbufsyjn188[address] [place], [place] [address]Dr. Airam Tripathi ALT [Catalytic activity/Vol] 22 U/L Normal 14-59 [facility] Comment on above: Performed By: #### C MP ####[facility] Aoenftjzii383[address] [place], [place] [address]Dr. Airam Tripathi Anion gap [Moles/Vol] 6.7 mmol/L Normal [facility] Comment on above: Performed By: #### C MP ####[facility] Inlsrihlnp9906[address] [place], [place] [address]Dr. Airam Tripathi AST [Catalytic activity/Vol] 24 U/L Normal 15-37 [facility] Comment on above: Performed By: #### C MP ####[facility] Xqcjpgijsf3112[address] [place], [place] [address]Dr. Airam Tripathi Bilirubin [Mass/Vol] 0.2 mg/dL Normal 0.2-1.0 [facility] Comment on above: Performed By: #### C MP ####[facility] Sitayojbop2488[address] [place], [place] [address]Dr. Airam Tripathi Calcium [Mass/Vol] 8.2 mg/dL Critically low 8.5-10.1 Th e [facility] Comment on above: Performed By: #### C MP ####[facility] Rijziygruw829133 [address] [place], [place] [address]Dr. Airam Tripathi Chloride [Moles/Vol] 105 mmol/L Normal 98-107 [facility] Comment on above: Performed By: #### C MP ####[facility] Daqoqekkho3513[address] [place], [place] [address]Dr. Airam Tripathi CO2 [Moles/Vol] 28.2 mmol/L Normal 21.0-32.0 [facility] Comment on above: Performed By: #### C MP ####[facility] Zxlgiuviro934[address] [place], [place] [address]Dr. Airam Tripathi Creatinine [Mass/Vol] 1.22 mg/dL Critically high 0.55-1.02 [facility] Comment on above: Performed By: #### C MP ####[facility] Qthcdbjbqu[address] [place], [place] [address]Dr. Airam Tripathi EGFR-AF PANAMANIAN 54 mL/min/1.73m2 Critically low >=60 [facility] Comment on above: Performed By: #### C MP ####[facility] Aowunffggb8212[address] [place], [place] [address]Dr. Airam Tripathi EGFR-NON AF PANAMANIAN 45 mL/min/1.73m2 Critically low >=60 [facility] Comment on above: Performed By: #### C MP ####[facility] Mttzqookxw4529[address] [place], [place] [address]Dr. Airam Tripathi Globulin (S) [Mass/Vol] 3.2 g/dL Normal [facility] Comment on above: Performed By: #### C MP ####[facility] Gxkqcfpbjk3773 [place] [address]Dr. Airam Tripathi Glucose [Mass/Vol] 77 mg/dL Normal 74-106 [facility] Comment on above: Performed By: #### C MP ####[facility] Idnrojsbfd8240 [place] [address]Dr. Airam Tripathi Potassium [Moles/Vol] 4.9 mmol/L Normal 3.5-5.1 [facility] Comment on above: Performed By: #### C MP ####[facility] Msmntwspfv045[address] [place], [place] [address]Dr. Airam Tripathi Protein [Mass/Vol] 6.1 g/dL Critically low 6.4-8.2 [facility] Comment on above: Performed By: #### C MP ####[facility] Aqfkbrzldc5898[address] [place], [place] [address]Dr. Airam Tripathi Sodium [Moles/Vol] 135 mmol/L Critically low 136-145 [facility] Comment on above: Performed By: #### C MP ####[facility] Emhsoewcfc264[address] [place], [place] [address]Dr. Airam Tripathi Urea nitrogen [Mass/Vol] 30.0 mg/dL Critically high 7.0-18.0 [facility] Comment on above: Performed By: #### C MP ####[facility] Lufblpyzpl2517[address] [place], [place] [address]Dr. Airam Tripathi Urea nitrogen/Creatinine [Mass ratio] 24.6 mg/mg Normal [facility] Comment on above: Performed By: #### C MP ####[facility] Rlkzatgqqe7914[address] [place], [place] [address]Dr. Airam Tripathi OSMOLALITYon 04-23-2022 Osmolality [Osmolality] 289 mosm/kg Normal 275-295 [facility] Comment on above: Performed By: #### O SMO ####[facility] Tfvuffoqfa9608[address] [place], [place] [address]Dr. Airam Tripathi CBC AUTO DIFFon 04-20-2022 BASO # 0.0 103/ul Normal 0.0-0.1 [facility] Comment on above: Performed By: #### C BC ####[facility] Tkyldywhyl8111 [place] [id number]. Airam Tripathi Basophils/100 WBC (Bld) 0.4 % Normal 0.2-2.0 [facility] Comment on above: Performed By: #### C BC ####[facility] Svacbohfni5894 [place] [phone]. Airam Tripathi EO # 0.2 103/ul Normal 0.0-0.7 [facility] Comment on above: Performed By: #### C BC ####[facility] [address]tfrlqpqfa[address] [place], [place] [address]Dr. Airam Tripathi Eosinophils/100 WBC (Bld) 3.1 % Normal 0.9-7.0 [facility] Comment on above: Performed By: #### C BC ####[facility] Mnshsbktwu3116[address] [place], [place] [address]Dr. Airam Tripathi Erythrocyte distribution width (RBC) [Ratio] 13.8 % Normal 11.0-15.0 [facility] Comment on above: Performed By: #### C BC ####[facility] Bnhdldmhnt45[address] [place], [place] [address]Dr. Airam Tripathi Hematocrit (Bld) [Volume fraction] 29.5 % Critically low 36.0-48.0 [facility] Comment on above: Performed By: #### C BC ####[facility] Qcxiwjffyg0646 [place] [id number]. Airam Tripathi Hemoglobin (Bld) [Mass/Vol] 9.2 g/dL Critically low 12.0-16.0 [facility] Comment on above: Performed By: #### C BC ####[facility] Zoaagpwzli14[address] [place], [place] [address]Dr. Airam Tripathi IG # 0.02 10e3/ul Normal 0.00-0.03 [facility] Comment on above: Performed By: #### C BC ####[facility] Jdgsoqrddx8[address] [place], [place] [address]Dr. Airam Tripathi IG % 0.4 % Normal 0.0-0.5 [facility] Comment on above: Performed By: #### C BC ####[facility] Plpwyadsgd3270 [place] [phone]. Airam Tripathi LYMPH # 0.8 103/ul Critically low 1.2-3.8 [facility] Comment on above: Performed By: #### C BC ####[facility] Iaxuuqiwvs5335 [place] [phone]. Airam Tripathi Lymphocytes/100 WBC (Bld) 14.0 % Critically low 20.5-60.0 [facility] Comment on above: Performed By: #### C BC ####[facility] Rbpdxusuag4524 [place] [address]Dr. Airam Tripathi MANUAL DIFF REQ NO Normal [facility] Comment on above: Performed By: #### C BC ####[facility] Folzeciblq7007 [place] [address]Dr. Airam Tripathi MCH (RBC) [Entitic mass] 30.4 pg Normal 26.7-34.0 [facility] Comment on above: Performed By: #### C BC ####[facility] Iqqpkbatqg1688 [place] [id number]. Airam Tripathi MCHC (RBC) [Mass/Vol] 31.2 g/dL Normal 29.9-35.2 [facility] Comment on above: Performed By: #### C BC ####[facility] Rqdhjgsrko0768 [place] [phone]. Airam Tripathi MCV (RBC) [Entitic vol] 97.4 fL Normal 81.0-99.0 [facility] Comment on above: Performed By: #### C BC ####[facility] Jskekiuqmr5469 [place] [address]Dr. Airam Tripathi MONO # 0.3 103/ul Normal 0.3-0.8 [facility] Comment on above: Performed By: #### C BC ####[facility] Lowqcgfphe4508 [place] [address]Dr. Airam Tripathi Monocytes/100 WBC (Bld) 5.6 % Normal 1.7-12.0 [facility] Comment on above: Performed By: #### C BC ####[facility] Oglmkwpgfx0221 [place] [id number]. Airam Tripathi NEUT # 4.2 103/ul Normal 1.4-6.5 [facility] Comment on above: Performed By: #### C BC ####[facility] Osplmnpnil9568 [place] [phone]. Airam Tripathi Neutrophils/100 WBC (Bld) 76.5 % Critically high 43.0-75.0 [facility] Comment on above: Performed By: #### C BC ####[facility] Groxzgnvgu5786 [place] [phone]. Airam Tripathi Platelet mean volume (Bld) [Entitic vol] 9.4 fL Critically low 9.5-13.5 [facility] Comment on above: Performed By: #### C BC ####[facility] Roxjdhuqml6291 [place] [phone]. Airam Tripathi PLT 250 103/ul Normal 150-450 [facility] Comment on above: Performed By: #### C BC ####[facility] Vmqxsnjibk0055 [place] [phone]. Airam Tripathi RBC 3.03 106/ul Critically low 4.20-5.40 [facility] Comment on above: Performed By: #### C BC ####[facility] Hehoffygpi3091 [place] [phone]. Airam Tripathi WBC 5.5 103/ul Normal 4.0-11.0 [facility] Comment on above: Performed By: #### C BC ####[facility] Mcblvoixdc4094 [place] [phone]. Airam Tripathi PROF 14(COMP METB)on 022 Albumin [Mass/Vol] 2.7 g/dL Critically low 3.4-5.0 [facility] Comment on above: Performed By: #### C MP ####[facility] Ekabkyqpyf7468 [place] [phone]. Airam Deuce Albumin/Globulin [Mass ratio] 0.9 {ratio} Normal [facility] Comment on above: Performed By: #### C MP ####[facility] Yvppayhiig0645 [place] [phone]. Airam Tripathi ALP [Catalytic activity/Vol] 113 U/L Normal 46-116 [facility] Comment on above: Performed By: #### C MP ####[facility] Phsjkiymja5325 [place] [phone]. Airam Tripathi ALT [Catalytic activity/Vol] 20 U/L Normal 14-59 [facility] Comment on above: Performed By: #### C MP ####[facility] Ransnrkvtz6670 [place] [phone]. Airam Tripathi Anion gap [Moles/Vol] 11.1 mmol/L Normal [facility] Comment on above: Performed By: #### C MP ####[facility] Xtuxmgdcnx0154 [place] [address]Dr. Airam Tripathi AST [Catalytic activity/Vol] 19 U/L Normal 15-37 [facility] Comment on above: Performed By: #### C MP ####[facility] Bkgihvhnhb3843 [place] [address]Dr. Airam Tripathi Bilirubin [Mass/Vol] 0.2 mg/dL Normal 0.2-1.0 [facility] Comment on above: Performed By: #### C MP ####[facility] Lpqecxtxuc5428 [place] [address]Dr. Airam Tripathi Calcium [Mass/Vol] 8.3 mg/dL Critically low 8.5-10.1 [facility] Comment on above: Performed By: #### C MP ####[facility] Hjaombtmjr0516 [place] [address]Dr. Airam Tripathi Chloride [Moles/Vol] 104 mmol/L Normal 98-107 [facility] Comment on above: Performed By: #### C MP ####[facility] Tkqgjatzxv3684 [place] [address]Dr. Airam Tripathi CO2 [Moles/Vol] 25.3 mmol/L Normal 21.0-32.0 [facility] Comment on above: Performed By: #### C MP ####[facility] Puekfqjaid6728 [place] [phone]. Airam Tripathi Creatinine [Mass/Vol] 1.33 mg/dL Critically high 0.55-1.02 [facility] Comment on above: Performed By: #### C MP ####[facility] Gkufemcayp29[address] [place], [place] [address]Sr. Airam Tripathi EGFR-AF PANAMANIAN 49 mL/min/1.73m2 Critically low >=60 [facility] Comment on above: Performed By: #### C MP ####[facility] Texuemrkln2075 [place] [phone]. Airam Tripathi EGFR-NON AF PANAMANIAN 41 mL/min/1.73m2 Critically low >=60 [facility] Comment on above: Performed By: #### C MP ####[facility] Seiafnypsq7894 [place] [phone]. Airam Tripathi Globulin (S) [Mass/Vol] 3.1 g/dL Normal [facility] Comment on above: Performed By: #### C MP ####[facility] Urjzkmcmvo0555 [place] [phone]. Airam Tripathi Glucose [Mass/Vol] 88 mg/dL Normal 74-106 [facility] Comment on above: Performed By: #### C MP ####[facility] Yrkndgojwi4867 [place] [phone]. Airam Tripathi Potassium [Moles/Vol] 5.4 mmol/L Critically high 3.5-5.1 [facility] Comment on above: Performed By: #### C MP ####[facility] Qqakynkuww4552 [place] [phone]. Airam Tripathi Protein [Mass/Vol] 5.8 g/dL Critically low 6.4-8.2 [facility] Comment on above: Performed By: #### C MP ####[facility] Lxojnnecae9039 [place] [phone]. Airam Tripathi Sodium [Moles/Vol] 135 mmol/L Critically low 136-145 Th [facility] Comment on above: Performed By: #### C MP ####[facility] Lpzzfpujtv8323 [place] [address]Dr. Airam Tripathi Urea nitrogen [Mass/Vol] 38.0 mg/dL Critically high 7.0-18.0 [facility] Comment on above: Performed By: #### C MP ####[facility] Ktmdgtqpmv214[address] [place], [place] [address]Dr. Airam Tripathi Urea nitrogen/Creatinine [Mass ratio] 28.6 mg/mg Normal [facility] Comment on above: Performed By: #### C MP ####[facility] Mquyckgzgo756[address] [place], [place] [address]Dr. Airam Tripathi OSMOLALITYon 04-15-2022 Osmolality [Osmolality] 284 mosm/kg Normal 275-295 [facility] Comment on above: Performed By: #### O SMO ####[facility] Bszcodurxf522[address] [place], [place] [address]Dr. Airam Tripathi CBC AUTO DIFFon 04-14-2022 BASO # 0.0 103/ul Normal 0.0-0.1 [facility] Comment on above: Performed By: #### C BC ####[facility] Pplhyokwky514[address] [place], [place] [address]Dr. Airam Tripathi Basophils/100 WBC (Bld) 0.5 % Normal 0.2-2.0 [facility] Comment on above: Performed By: #### C BC ####[facility] Fvvtoznapb2955[address] [place], [place] [address]Dr. Airam Tripathi EO # 0.3 103/ul Normal 0.0-0.7 [facility] Comment on above: Performed By: #### C BC ####[facility] Nskcwqnmaa2128[address] [place], [place] [address]Dr. Airam Tripathi Eosinophils/100 WBC (Bld) 3.6 % Normal 0.9-7.0 [facility] Comment on above: Performed By: #### C BC ####[facility] Widezmwnhw5284[address] [place], [place] [address]Dr. Airam Tripathi Erythrocyte distribution width (RBC) [Ratio] 13.4 % Normal 11.0-15.0 [facility] Comment on above: Performed By: #### C BC ####[facility] Fnktxmgkpm5311 [place] [address]Dr. Airam Tripathi Hematocrit (Bld) [Volume fraction] 30.6 % Critically low 36.0-48.0 [facility] Comment on above: Performed By: #### C BC ####[facility] Xruuhnxvqy0738 [place] [address]Dr. Airam Tripathi Hemoglobin (Bld) [Mass/Vol] 9.7 g/dL Critically low 12.0-16.0 [facility] Comment on above: Performed By: #### C BC ####[facility] Zhewepgmoe04[address] [place], [place] [address]Dr. Airam Tripathi IG # 0.08 10e3/ul Critically high 0.00-0.03 [facility] Comment on above: Performed By: #### C BC ####[facility] Ytrqnpluiv006[address] [place], [place] [address]DrKianna Selenaneil Tripathi IG % 0.9 % Critically high 0.0-0.5 [facility] Comment on above: Performed By: #### C BC ####[facility] Patjqspaum[address] [place], [place] [address]DrKianna Airam Deuce LYMPH # 2.1 103/ul Normal 1.2-3.8 [facility] Comment on above: Performed By: #### C BC ####[facility] Stgiihcziz8[address] [place], [place] [address]DrKianna Selenaneil Tripathi Lymphocytes/100 WBC (Bld) 24.2 % Normal 20.5-60.0 [facility] Comment on above: Performed By: #### C BC ####[facility] Jzzbnsmtfp[address] [place], [place] [address]DrKianna Selenaneil Tripathi MANUAL DIFF REQ NO Normal [facility] Comment on above: Performed By: #### C BC ####[facility] Fegplgrwqi[address] [place], [place] [address]DrKianna Selenaneil Tripathi MCH (RBC) [Entitic mass] 30.4 pg Normal 26.7-34.0 [facility] Comment on above: Performed By: #### C BC ####[facility] P[address]nvxwxtdg50[address] [place] [id number]. Airam Deuce MCHC (RBC) [Mass/Vol] 31.7 g/dL Normal 29.9-35.2 [facility] Comment on above: Performed By: #### C BC ####[facility] Fohhlwhwba82[address] [place] [id number]. Airam Tripathi MCV (RBC) [Entitic vol] 95.9 fL Normal 81.0-99.0 [facility] Comment on above: Performed By: #### C BC ####[facility] Cfjkxzooij9559[address] [place], [place] [address]Dr. Airam Tripathi MONO # 0.5 103/ul Normal 0.3-0.8 [facility] Comment on above: Performed By: #### C BC ####[facility] Ahlnhessue8665[address] [place], [place] [address]Dr. Airam Tripathi Monocytes/100 WBC (Bld) 6.0 % Normal 1.7-12.0 [facility] Comment on above: Performed By: #### C BC ####[facility] Kmzzdydgyh15[address] [place], [place] [address]Dr. Airam Tripathi NEUT # 5.6 103/ul Normal 1.4-6.5 [facility] Comment on above: Performed By: #### C BC ####[facility] Ysclqwemge8[address] [place], [place] [address]Dr. Airam Tripathi Neutrophils/100 WBC (Bld) 64.8 % Normal 43.0-75.0 [facility] Comment on above: Performed By: #### C BC ####[facility] Avqrwezpra1424[address] [place], [place] [address]Dr. Airam Tripathi Platelet mean volume (Bld) [Entitic vol] 9.2 fL Critically low 9.5-13.5 [facility] Comment on above: Performed By: #### C BC ####[facility] Pjijagtcln[address] [place], [place] [address]Dr. Airam Tripathi PLT 296 103/ul Normal 150-450 [facility] Comment on above: Performed By: #### C BC ####[facility] Gcaycldxtv5290 [place] [phone]. Selenaneil Deuce RBC 3.19 106/ul Critically low 4.20-5.40 [facility] Comment on above: Performed By: #### C BC ####[facility] Zltziuyhcu9354 [place] [phone]. Airam Tripathi WBC 8.6 103/ul Normal 4.0-11.0 [facility] Comment on above: Performed By: #### C BC ####[facility] [address]xvbxp[address] [place] [address]Dr. Airam Tripathi PROF 14(COMP METB)on 022 Albumin [Mass/Vol] 3.2 g/dL Critically low 3.4-5.0 Th e [facility] Comment on above: Performed By: #### C MP ####[facility] Moqyngtfoq9339[address] [place], [place] [address]Dr. Airam Tripathi Albumin/Globulin [Mass ratio] 1.0 {ratio} Normal [facility] Comment on above: Performed By: #### C MP ####[facility] Fufgzvizdu8439[address] [place], [place] [address]Dr. Airam Tripathi ALP [Catalytic activity/Vol] 126 U/L Critically high 46-116 [facility] Comment on above: Performed By: #### C MP ####[facility] Yfyesjvetm6196[address] [place], [place] [address]Dr. Airam Tripathi ALT [Catalytic activity/Vol] 27 U/L Normal 14-59 [facility] Comment on above: Performed By: #### C MP ####[facility] L[address]bfmavvff28[address] [place] [address]Dr. Airam Tripathi Anion gap [Moles/Vol] 9.6 mmol/L Normal [facility] Comment on above: Performed By: #### C MP ####[facility] Zuvsgdqsdc9[address] [place] [address]Dr. Airam Tripathi AST [Catalytic activity/Vol] 25 U/L Normal 15-37 [facility] Comment on above: Performed By: #### C MP ####[facility] Hdjddcksxk4249 [place] [phone]. Airam Tripathi Bilirubin [Mass/Vol] 0.3 mg/dL Normal 0.2-1.0 [facility] Comment on above: Performed By: #### C MP ####[facility] Vrmngaqvnd8617 [place] [address]Dr. Airam Tripathi Calcium [Mass/Vol] 8.1 mg/dL Critically low 8.5-10.1 [facility] Comment on above: Performed By: #### C MP ####[facility] Ibgwccefpv6439[address] [place], [place] [address]Dr. Airam Tripathi Chloride [Moles/Vol] 100 mmol/L Normal 98-107 [facility] Comment on above: Performed By: #### C MP ####[facility] Dtlbdozwyp6515[address] [place], [place] [address]Dr. Airam Tripathi CO2 [Moles/Vol] 26.5 mmol/L Normal 21.0-32.0 [facility] Comment on above: Performed By: #### C MP ####[facility] Eilnmvnckm3758[address] [place], [place] [address]Dr. Airam Tripathi Creatinine [Mass/Vol] 1.52 mg/dL Critically high 0.55-1.02 [facility] Comment on above: Performed By: #### C MP ####[facility] Ldxkthpdvv877[address] [place], [place] [address]Dr. Airam Tripathi EGFR-AF PANAMANIAN 42 mL/min/1.73m2 Critically low >=60 [facility] Comment on above: Performed By: #### C MP ####[facility] Sqfimxggwn8918[address] [place], [place] [address]Dr. Airam Tripathi EGFR-NON AF PANAMANIAN 35 mL/min/1.73m2 Critically low >=60 [facility] Comment on above: Performed By: #### C MP ####[facility] Uchcthebnl4034[address] [place], [place] [address]Dr. Airam Tripathi Globulin (S) [Mass/Vol] 3.3 g/dL Normal [facility] Comment on above: Performed By: #### C MP ####[facility] Grloxbiwoj[address] [place] [address]Dr. Airam Tripathi Glucose [Mass/Vol] 75 mg/dL Normal 74-106 [facility] Comment on above: Performed By: #### C MP ####[facility] Dbohnxjzwb8731 [place] [phone]. Airam Tripathi Potassium [Moles/Vol] 4.1 mmol/L Normal 3.5-5.1 [facility] Comment on above: Performed By: #### C MP ####[facility] Oncgrncfcg6653 [place] [address]Dr. Airam Tripathi Protein [Mass/Vol] 6.5 g/dL Normal 6.4-8.2 [facility] Comment on above: Performed By: #### C MP ####[facility] Bbqpjtjpsf907[address] [place], [place] [address]Dr. Airam Tripathi Sodium [Moles/Vol] 132 mmol/L Critically low 136-145 [facility] Comment on above: Performed By: #### C MP ####[facility] Vkdinwrdev6008[address] [place], [place] [address]Dr. Airam Tripathi Urea nitrogen [Mass/Vol] 40.0 mg/dL Critically high 7.0-18.0 [facility] Comment on above: Performed By: #### C MP ####[facility] Yhgcuiiopm047[address] [place], [place] [address]Dr. Airam Tripathi Urea nitrogen/Creatinine [Mass ratio] 26.3 mg/mg Normal [facility] Comment on above: Performed By: #### C MP ####[facility] Ybmlxzgnds0850[address] [place], [place] [address]Dr. Airam Tripathi OSMOLALITYon 04-10-2022 Osmolality [Osmolality] 280 mosm/kg Normal 275-295 [facility] Comment on above: Performed By: #### O SMO ####[facility] Idpzpzbpfm8796[address] [place], [place] [address]Dr. Airam Tripathi PTH INTACTon 04-09-2022 PTH, Intact 89 pg/mL Critically high 15-65 [facility] Comment on above: Performed By: #### P THINT ####[facility] Xswnuwdhfv38[address] [place] [address]Dr. Airam Tripathi CBC W MANUAL DIFFon 04-08-20 22 ATYPICAL LYMPH # Normal [facility] Comment on above: Performed By: #### C CHRISTEN ####[facility] Gywqwqbqly08[address] [place] [phone]. Airam Tripathi ATYPICAL LYMPH % Normal [facility] Comment on above: Performed By: #### C CHRISTEN ####[facility] Qfrajwbtdm4105 [place] [address]Dr. Airam Tripathi BAND # Normal 0.0-0.3 [facility] Comment on above: Performed By: #### C CHRISTEN ####[facility] Ngswvykmur9144[address] [place], [place] [address]Dr. Airma Tripathi BAND % Normal 0-5 [facility] Comment on above: Performed By: #### C CHRISTEN ####[facility] Cwnixwgvea9[address] [place], [place] [address]Dr. Airam Tripathi BASOM # 0.00 103/ul Normal 0.00-0.10 [facility] Comment on above: Performed By: #### Jodee VELÁSQUEZ ####[facility] Ttenkkgkxo88[address] [place], [place] [address]Dr. Airam Tripathi BASOM % 0.0 % Critically low 0.2-2.0 [facility] Comment on above: Performed By: #### C CHRISTEN ####[facility] Wagubibcry[address] [place], [place] [address]Dr. Airam Tripathi BLAST # Normal [facility] Comment on above: Performed By: #### C CHRISTEN ####[facility] Jkuhorpmpa9022[address] [place], [place] [address]Dr. Airam Tripathi BLAST % Normal [facility] Comment on above: Performed By: #### C CHRISTEN ####[facility] Ubbewrcgea3366[address] [place], [place] [address]Dr. Airam Tripathi CORRECTED WBC Normal 4.0-11.0 [facility] Comment on above: Performed By: #### C CHRISTEN ####[facility] Wtvmuwhilg85[address] [place], [place] [address]Hk. Airam Tripathi EOS # 0.00 103/ul Normal 0.00-0.70 [facility] Comment on above: Performed By: #### C CHRISTEN ####[facility] Iawtiiavrk73[address] [place], [place] [address]Jd. Airam Tripathi EOS% 0.0 % Critically low 0.9-7.0 [facility] Comment on above: Performed By: #### C CHRISTEN ####[facility] Tvumecrgxz2560 [place], [place] [address]Yo. Airam Tripathi HCT 29.7 % Critically low 36.0-48.0 [facility] Comment on above: Performed By: #### C CHRISTEN ####[facility] Lwoodyljvj6307 [place] [phone]. Airam Tripathi HGB 9.5 g/dl Critically low 12.0-16.0 [facility] Comment on above: Performed By: #### C CHRISTEN ####[facility] Wulppmfjdr9354 [place] [phone]. Airam Tripathi LYMPHM # 0.42 103/ul Critically low 1.20-3.80 [facility] Comment on above: Performed By: #### C CHRISTEN ####[facility] Rmvwjreols9274 [place] [phone]. Airam Tripathi LYMPHM% 7.0 % Critically low 20.5-60.0 [facility] Comment on above: Performed By: #### C CHRISTEN ####[facility] Vgzxannyeg9214 [place], [place] [address]Jz. Airam Tripathi MCH 30.9 pg Normal 26.7-34.0 [facility] Comment on above: Performed By: #### C CHRISTEN ####[facility] Yivgnfvnjt0308 [place] [phone]. Airam Tripathi MCHC 32.0 g/dl Normal 29.9-35.2 [facility] Comment on above: Performed By: #### C CHRISTEN ####[facility] Iijvibrbks3251 [place] [phone]. Airam Tripathi MCV 96.7 fL Normal 81.0-99.0 [facility] Comment on above: Performed By: #### C CHRISTEN ####[facility] Omuvmqabmh3141 [place] [phone]. Airam Tripathi METAMYELOCYTE # Normal [facility] Comment on above: Performed By: #### C CHRISTEN ####[facility] Tagcrafvtk2529 [place] [phone]. Airam Tripathi METAMYELOCYTE % Normal [facility] Comment on above: Performed By: #### C CHRISTEN ####[facility] Jrgoyjptxq5409 [place] [phone]. Airam Tripathi MONOM# 0.36 103/ul Normal 0.30-0.80 [facility] Comment on above: Performed By: #### C CHRISTEN ####[facility] Gsiqbktzof72[address] [place], [place] [address]Dr. Airam Tripathi MONOM% 6.0 % Normal 1.7-12.0 [facility] Comment on above: Performed By: #### C CHRISTEN ####[facility] Colirsjiyh[address] [place], [place] [address]Dr. Airam Tripathi MPV 9.5 fL Normal 9.5-13.5 [facility] Comment on above: Performed By: #### C CHRISTEN ####[facility] Dlcdlwlssy[address] [place], [place] [address]Dr. Airam Tripathi MYELOCYTE # Normal [facility] Comment on above: Performed By: #### C CHRISTEN ####[facility] Jnhkywasrj2046 [place] [phone]. Airam Tripathi MYELOCYTE % Normal [facility] Comment on above: Performed By: #### C CHRISTEN ####[facility] Teunpnaqwg[address] [place], [place] [address]Dr. Airam Tripathi NRBC Normal [facility] Comment on above: Performed By: #### C CHRISTEN ####[facility] Xxssstfhvb8485 [place] [phone]. Airam Tripathi PLT 185 103/ul Normal 150-450 [facility] Comment on above: Performed By: #### C CHRISTEN ####[facility] Alnkadabcb0796 [place], [place] [address]Yt. Airam Tripathi RBC 3.07 106/ul Critically low 4.20-5.40 [facility] Comment on above: Performed By: #### C CHRISTEN ####[facility] Dmydoxtjug6321 [place], [place] [address]Px. Airam Tripathi RDW 13.6 % Normal 11.0-15.0 [facility] Comment on above: Performed By: #### C CHRISTEN ####[facility] Qgqgzswydu9701 [place], [place] [address]On. Airam Tripathi SEG # 5.22 103/ul Normal 1.40-6.50 [facility] Comment on above: Performed By: #### C CHRISTEN ####[facility] Jqurmqlftm9676 [place] [phone]. Airam Tripathi SEG % 87.0 % Critically high 43.0-75.0 [facility] Comment on above: Performed By: #### C CHRISTEN ####[facility] Gcqvlikztz0798 [place], [place] [address]Uj. Airam Tripathi WBC 6.0 103/ul Normal 4.0-11.0 [facility] Comment on above: Performed By: #### C CHRISTEN ####[facility] Pmalkmoodt3863 [place], [place] [address]Lh. Airam Tripathi FREE THYROXINE INDEX T7on FTI 1.57 Normal 1.30-4.50 [facility] Comment on above: Performed By: #### T 7, TSH, CMP ####[facility] Bygzuqmwla2608 [place], [place] [address]Ng. Airam Tripathi T3U 32.0 % Normal 30.0-39.0 [facility] Comment on above: Performed By: #### T 7, TSH, CMP ####[facility] Erqtimxivr0621 [place], [place] [address]Fb. Airam Tripathi T4 [Mass/Vol] 4.90 ug/dL Normal 4.80-13.90 [facility] Comment on above: Performed By: #### T 7, TSH, CMP ####[facility] Attvzrqaab9722[address] [place], [place] [address]Dr. Airam Tripathi PROF 14(COMP METB)on 04-08- 022 Albumin [Mass/Vol] 3.0 g/dL Critically low 3.4-5.0 [facility] Comment on above: Performed By: #### T 7, TSH, CMP ####[facility] Utjtypbqrk2020[address] [place], [place] [address]Dr. Airam Tripathi Albumin/Globulin [Mass ratio] 1.0 {ratio} Normal [facility] Comment on above: Performed By: #### T 7, TSH, CMP ####[facility] Yafukyjmqm5784[address] [place], [place] [address]Dr. Airam Tripathi ALP [Catalytic activity/Vol] 106 U/L Normal 46-116 [facility] Comment on above: Performed By: #### T 7, TSH, CMP ####[facility] Qepssyurid2225[address] [place], [place] [address]Dr. Airam Tripathi ALT [Catalytic activity/Vol] 20 U/L Normal 14-59 [facility] Comment on above: Performed By: #### T 7, TSH, CMP ####[facility] Aghkruiiwh2507[address] [place], [place] [address]Dr. Airam Tripathi Anion gap [Moles/Vol] 10.8 mmol/L Normal [facility] Comment on above: Performed By: #### T 7, TSH, CMP ####[facility] Zzqflxyowf[address] [place], [place] [address]Dr. Airam Tripathi AST [Catalytic activity/Vol] 19 U/L Normal 15-37 [facility] Comment on above: Performed By: #### T 7, TSH, CMP ####[facility] Ngrvntxdux9348[address] [place], [place] [address]Dr. Airam Tripathi Bilirubin [Mass/Vol] 0.3 mg/dL Normal 0.2-1.0 [facility] Comment on above: Performed By: #### T 7, TSH, CMP ####[facility] Bgkzdegiky2204 [place] [phone]. Airam Tripathi Calcium [Mass/Vol] 8.0 mg/dL Critically low 8.5-10.1 [facility] Comment on above: Performed By: #### T 7, TSH, CMP ####[facility] Drhxhjhmpv9446 [place] [phone]. Airam Tripathi Chloride [Moles/Vol] 100 mmol/L Normal 98-107 [facility] Comment on above: Performed By: #### T 7, TSH, CMP ####[facility] Howgsdffea2510 [place] [phone]. Airam Tripathi CO2 [Moles/Vol] 24.3 mmol/L Normal 21.0-32.0 [facility] Comment on above: Performed By: #### T 7, TSH, CMP ####[facility] Vfglgyhhhc7578[address] [place], [place] [address]Dr. Airam Tripathi Creatinine [Mass/Vol] 1.12 mg/dL Critically high 0.55-1.02 [facility] Comment on above: Performed By: #### T 7, TSH, CMP ####[facility] Yelamimmce[address] [place], [place] [address]Dr. Airam Tripathi EGFR-AF PANAMANIAN 60 mL/min/1.73m2 Normal >=60 [facility] Comment on above: Performed By: #### T 7, TSH, CMP ####[facility] Soefjmgvyx74[address] [place], [place] [address]Dr. Airam Tripathi EGFR-NON AF PANAMANIAN 50 mL/min/1.73m2 Critically low >=60 [facility] Comment on above: Performed By: #### T 7, TSH, CMP ####[facility] Oxldpnooym9260 [place] [phone]. Airam Tripathi Globulin (S) [Mass/Vol] 3.0 g/dL Normal [facility] Comment on above: Performed By: #### T 7, TSH, CMP ####[facility] Wiuwedeozu9390 [place] [phone]. Airam Tripathi Glucose [Mass/Vol] 76 mg/dL Normal 74-106 [facility] Comment on above: Performed By: #### T 7, TSH, CMP ####[facility] Tskyetijiy[address] [place], [place] [address]Dr. Airam Tripathi Potassium [Moles/Vol] 4.1 mmol/L Normal 3.5-5.1 [facility] Comment on above: Performed By: #### T 7, TSH, CMP ####[facility] Wgmgudwzwx9460[address] [place], [place] [address]Dr. Airam Tripathi Protein [Mass/Vol] 6.0 g/dL Critically low 6.4-8.2 [facility] Comment on above: Performed By: #### T 7, TSH, CMP ####[facility] Sjatdonxij279[address] [place], [place] [address]Dr. Airam Tripathi Sodium [Moles/Vol] 131 mmol/L Critically low 136-145 [facility] Comment on above: Performed By: #### T 7, TSH, CMP ####[facility] Wxykfxepzl5625[address] [place], [place] [address]Dr. Airam Tripathi Urea nitrogen [Mass/Vol] 32.0 mg/dL Critically high 7.0-18.0 [facility] Comment on above: Performed By: #### T 7, TSH, CMP ####[facility] Jesgketqnj6997[address] [place], [place] [address]Dr. Airam Tripathi Urea nitrogen/Creatinine [Mass ratio] 28.6 mg/mg Normal [facility] Comment on above: Performed By: #### T 7, TSH, CMP ####[facility] Dmxmumzmsg0897[address] [place], [place] [address]Dr. Airam Tripathi TSHon 04-08-2022 TSH 0.027 uIU/mL Critically low 0.358-3.74 0 [facility] Comment on above: Performed By: #### T 7, TSH, CMP ####[facility] Xfpkxcohrl2640[address] [place], [place] [address]Dr. Airam Tripathi UA RANDOMon 04-08-2022 Bilirubin Ql (U) Negative Normal NEGATIVE [facility] Comment on above: Performed By: #### U A ####[facility] Jfpctsjfsc4184 [place] [address]Dr. Airam Tripathi Clarity (U) CLEAR Normal CLEAR [facility] Comment on above: Performed By: #### U A ####[facility] Fizuofnnnc024[address] [place], [place] [address]Dr. Airam Tripathi Color (U) LT. YELLOW Normal YELLOW [facility] Comment on above: Performed By: #### U A ####[facility] Wepssgawey9355[address] [place], [place] [address]Dr. Airam Tripathi Glucose Ql (U) Negative Normal NEGATIVE [facility] Comment on above: Performed By: #### U A ####[facility] Fbsknchuhr276[address] [place], [place] [address]Dr. Airam Tripathi Hemoglobin Ql (U) Negative Normal NEGATIVE [facility] Comment on above: Performed By: #### U A ####[facility] Tkcordwqfl5425[address] [place], [place] [address]Dr. Airam Tripathi Ketones Ql (U) Negative Normal NEGATIVE [facility] Comment on above: Performed By: #### U A ####[facility] Sjmteetdxu026[address] [place], [place] [address]Dr. Airam Tripathi LEUKOCYTES Negative Normal NEGATIVE [facility] Comment on above: Performed By: #### U A ####[facility] Uemoqsgqgq5929[address] [place], [place] [address]Dr. Airam Tripathi Nitrite Ql (U) Negative Normal NEGATIVE [facility] Comment on above: Performed By: #### U A ####[facility] Vbgobasahz744[address] [place], [place] [address]Dr. Airam Tripathi pH (U) 6.0 [pH] Normal 5-9 [facility] Comment on above: Performed By: #### U A ####[facility] Vsmqkxejro686[address] [place], [place] [address]Dr. Airam Tripathi SPEC GRAVITY 1.010 Normal 1.005-<=1. 025 [facility] Comment on above: Performed By: #### U A ####[facility] Dfdeuombmf1396[address] [place], [place] [address]Dr. Airam Tripathi UA PROTEIN Negative Normal NEGATIVE/ TRACE [facility] Comment on above: Performed By: #### U A ####[facility] Gojfzhbmib8820 [place] [address]Dr. Airam Tripathi Urobilinogen Qn (U) 0.2 {Ligia'U}/dL Normal 0.2 - 1. 0 [facility] Comment on above: Performed By: #### U A ####[facility] Udrncesmmn8986[address] [place], [place] [address]Dr. Airam Tripathi URINE T PROTEIN CREAT RATIOo n 04-08-2022 UR PROT CREAT RAT 0.32 Normal [facility] Comment on above: Performed By: #### U RTPCR ####[facility] Qmdyyowjlm03[address] [place], [place] [address]Dr. Airam Tripathi UR TOTAL PROTEIN <6.0 Normal <=12.0 [facility] Comment on above: Performed By: #### U RTPCR ####[facility] Yjosnwmzzn1024[address] [place], [place] [address]Dr. Airam Tripathi URINE CREAT 18.75 mg/dL Critically low 20.00-300. 00 [facility] Comment on above: Performed By: #### U RTPCR ####[facility] Forjceroki[address] [place], [place] [address]Dr. Airam Tripathi FERRITINon 04-06-2022 Ferritin [Mass/Vol] 99.0 ng/mL Normal 8.0-252.0 [facility] Comment on above: Performed By: #### F ETIBC, VITAD, FERR ####[facility] Vmnbbgskvm[address] [place], [place] [address]Dr. Airam Tripathi IRON AND TIBCon 04-06-2022 % SATURATION 15.4 % Normal [facility] Comment on above: Performed By: #### F ETIBC, VITAD, FERR ####[facility] Jwdmysmeob[address] [place], [place] [address]Dr. Airam Tripathi Iron [Mass/Vol] 43.0 ug/dL Critically low 50.0-170.0 [facility] Comment on above: Performed By: #### F ETIBC, VITAD, FERR ####[facility] [address]wsst[address] [place] [id number]. Airam Tripathi TIBC DIRECT 280.0 ug/dL Normal 250.0-450. 0 [facility] Comment on above: Performed By: #### F ETIBC, VITAD, FERR ####[facility] [address]usf[address] [place] [address]Dr. Airam Tripathi PROF 14(COMP METB)on 022 Albumin [Mass/Vol] 3.2 g/dL Critically low 3.4-5.0 [facility] Comment on above: Performed By: #### C MP, URIC ####[facility] Svwmz[address]ryf[address] [place] [address]Dr. Airam Tripathi Albumin/Globulin [Mass ratio] 1.0 {ratio} Normal [facility] Comment on above: Performed By: #### C MP, URIC ####[facility] Azszegkoya[address] [place] [address]Dr. Airam Tripathi ALP [Catalytic activity/Vol] 118 U/L Critically high 46-116 [facility] Comment on above: Performed By: #### C MP, URIC ####[facility] Poosiazzuo[address] [place] [address]Dr. Airam Tripathi ALT [Catalytic activity/Vol] 24 U/L Normal 14-59 [facility] Comment on above: Performed By: #### C MP, URIC ####[facility] Luzywhjnxu[address] [place] [address]Dr. Airam Tripathi Anion gap [Moles/Vol] 14.4 mmol/L Normal [facility] Comment on above: Performed By: #### C MP, URIC ####[facility] Rzvijejxri[address] [place] [address]Dr. Airam Tripathi AST [Catalytic activity/Vol] 21 U/L Normal 15-37 [facility] Comment on above: Performed By: #### C MP, URIC ####[facility] Qbwrzfeetw[address] [place] [address]Dr. Airam Tripathi Bilirubin [Mass/Vol] 0.3 mg/dL Normal 0.2-1.0 [facility] Comment on above: Performed By: #### C MP, URIC ####[facility] Tseknbrwoj[address] [place] [address]Dr. Airam Tripathi Calcium [Mass/Vol] 8.0 mg/dL Critically low 8.5-10.1 [facility] Comment on above: Performed By: #### C MP, URIC ####[facility] Xigeipxsof[address] [place], [place] [address]Dr. Airam Tripathi Chloride [Moles/Vol] 98 mmol/L Normal 98-107 [facility] Comment on above: Performed By: #### C MP, URIC ####[facility] Isaqpqityf189[address] [place], [place] [address]Dr. Airam Tripathi CO2 [Moles/Vol] 22.0 mmol/L Normal 21.0-32.0 [facility] Comment on above: Performed By: #### C MP, URIC ####[facility] Hdzlwkrtwd5[address] [place], [place] [address]Dr. Airam Tripathi Creatinine [Mass/Vol] 1.86 mg/dL Critically high 0.55-1.02 [facility] Comment on above: Performed By: #### C MP, URIC ####[facility] Oxghuptxai[address] [place], [place] [address]Dr. Airam Tripathi EGFR-AF PANAMANIAN 33 mL/min/1.73m2 Critically low >=60 [facility] Comment on above: Performed By: #### C MP, URIC ####[facility] Qamcodsnmf86[address] [place], [place] [address]Dr. Airam Tripathi EGFR-NON AF PANAMANIAN 28 mL/min/1.73m2 Critically low >=60 [facility] Comment on above: Performed By: #### C MP, URIC ####[facility] Xnkxcfcqad32[address] [place], [place] [address]Dr. Airam Tripathi Globulin (S) [Mass/Vol] 3.1 g/dL Normal [facility] Comment on above: Performed By: #### C MP, URIC ####[facility] Tfrytyuann[address] [place], [place] [address]Dr. Airam Tripathi Glucose [Mass/Vol] 93 mg/dL Normal 74-106 [facility] Comment on above: Performed By: #### C MP, URIC ####[facility] Jkpwogxalo97[address] [place] [address]Dr. Airam Tripathi Potassium [Moles/Vol] 4.4 mmol/L Normal 3.5-5.1 [facility] Comment on above: Performed By: #### C MP, URIC ####[facility] Jqemsucoar[address] [place], [place] [address]Dr. Airam Tripathi Protein [Mass/Vol] 6.3 g/dL Critically low 6.4-8.2 Th [facility] Comment on above: Performed By: #### C MP, URIC ####[facility] Anzldqxpyw2017[address] [place], [place] [address]Dr. Airam Tripathi Sodium [Moles/Vol] 130 mmol/L Critically low 136-145 [facility] Comment on above: Performed By: #### C MP, URIC ####[facility] Zdnrmkrskg3639[address] [place], [place] [address]Dr. Airam Tripathi Urea nitrogen [Mass/Vol] 49.0 mg/dL Critically high 7.0-18.0 [facility] Comment on above: Performed By: #### C MP, URIC ####[facility] Motstglpva[address] [place], [place] [address]Dr. Airam Tripathi Urea nitrogen/Creatinine [Mass ratio] 26.3 mg/mg Normal [facility] Comment on above: Performed By: #### C MP, URIC ####[facility] Iqjmfzzbev[address] [place], [place] [address]Dr. Airam Tripathi URIC ACID SERUMon 04-06-2022 Urate [Mass/Vol] 6.5 mg/dL Critically high 2.6-6.0 [facility] Comment on above: Performed By: #### C MP, URIC ####[facility] Hummclgekg8738[address] [place], [place] [address]Dr. Airam Tripathi VITAMIN D 25 OHon 04-06-2022 VIT D 25-OH 74.5 ng/mL Normal [facility] Comment on above: Performed By: #### F ETIBC, VITAD, FERR ####[facility] Jkwudbjpiz[address] [place], [place] [address]Dr. Airam Tripathi VIT D RANGES SEE BELOW Normal [facility] Comment on above: Result Comment: <20 ng/mL Vit D deficient 20 - <30 ng/mL Vit D insufficient 30 - 100 ng/mL Vit D sufficient >100 ng/mL Potential Toxicity Performed By: #### F ETIBC, VITAD, FERR ####[facility] Icirviolbv6714[address] [place], [place] [address]Dr. Airam Tripathi OSMOLALITYon 04-01-2022 Osmolality [Osmolality] 284 mosm/kg Normal 275-295 [facility] Comment on above: Performed By: #### O SMO ####[facility] Jsocmeeknj3[address] [place], [place] [address]Dr. Airam Tripathi CBC AUTO DIFFon 03-31-2022 BASO # 0.0 103/ul Normal 0.0-0.1 [facility] Comment on above: Performed By: #### C BC ####[facility] Ymuybxvdye9[address] [place], [place] [address]Dr. Airam Tripathi Basophils/100 WBC (Bld) 0.3 % Normal 0.2-2.0 [facility] Comment on above: Performed By: #### C BC ####[facility] Loqshuvfzy27[address] [place], [place] [address]Dr. Airam Tripathi EO # 0.1 103/ul Normal 0.0-0.7 [facility] Comment on above: Performed By: #### C BC ####[facility] Vjoliacrpm2110[address] [place], [place] [address]Dr. Airam Tripathi Eosinophils/100 WBC (Bld) 2.0 % Normal 0.9-7.0 [facility] Comment on above: Performed By: #### C BC ####[facility] Enuutewets5622[address] [place], [place] [address]Dr. Airam Tripathi Erythrocyte distribution width (RBC) [Ratio] 13.5 % Normal 11.0-15.0 [facility] Comment on above: Performed By: #### C BC ####[facility] Edyvojawez[address] [place] [address]Dr. Airam Tripathi Hematocrit (Bld) [Volume fraction] 32.5 % Critically low 36.0-48.0 [facility] Comment on above: Performed By: #### C BC ####[facility] L[address]pjchflm[address] [place] [address]Dr. Airam Deuce Hemoglobin (Bld) [Mass/Vol] 10.1 g/dL Critically low 12.0-16.0 [facility] Comment on above: Performed By: #### C BC ####[facility] Dhmhmusnpe6[address] [place] [address]Dr. Airam Tripathi IG # 0.03 10e3/ul Normal 0.00-0.03 [facility] Comment on above: Performed By: #### C BC ####[facility] Hexswlstac11[address] [place], [place] [address]Dr. Airam Tripathi IG % 0.4 % Normal 0.0-0.5 [facility] Comment on above: Performed By: #### C BC ####[facility] Kpzewwdmbo[address] [place], [place] [address]Dr. Selenaneil Tripathi LYMPH # 1.6 103/ul Normal 1.2-3.8 [facility] Comment on above: Performed By: #### C BC ####[facility] Fhrvwbpgvs[address] [place], [place] [address]Dr. Airam Tripathi Lymphocytes/100 WBC (Bld) 22.6 % Normal 20.5-60.0 [facility] Comment on above: Performed By: #### C BC ####[facility] Hgeoqwbons9164[address] [place], [place] [address]Dr. Selenaneil Tripathi MANUAL DIFF REQ NO Normal [facility] Comment on above: Performed By: #### C BC ####[facility] Gnvhelbstl4217[address] [place], [place] [address]Dr. Selenaneil Tripathi MCH (RBC) [Entitic mass] 30.5 pg Normal 26.7-34.0 [facility] Comment on above: Performed By: #### C BC ####[facility] Mymcogzwpt64[address] [place] [id number]. Airam Tripathi MCHC (RBC) [Mass/Vol] 31.1 g/dL Normal 29.9-35.2 [facility] Comment on above: Performed By: #### C BC ####[facility] Ncelndzzwu4960 [place] [id number]. Airam Tripathi MCV (RBC) [Entitic vol] 98.2 fL Normal 81.0-99.0 [facility] Comment on above: Performed By: #### C BC ####[facility] Nqgluvddib8273 [place] [id number]. Airam Deuce MONO # 0.5 103/ul Normal 0.3-0.8 [facility] Comment on above: Performed By: #### C BC ####[facility] Rmfcfyvfmz03[address] [place], [place] [address]Dr. Selenaneil Tripathi Monocytes/100 WBC (Bld) 7.3 % Normal 1.7-12.0 [facility] Comment on above: Performed By: #### C BC ####[facility] Fuyopndfeq[address] [place], [place] [address]Dr. Airam Tripathi NEUT # 4.7 103/ul Normal 1.4-6.5 [facility] Comment on above: Performed By: #### C BC ####[facility] Mbwpctmyeu[address] [place], [place] [address]Dr. Airam Tripathi Neutrophils/100 WBC (Bld) 67.4 % Normal 43.0-75.0 [facility] Comment on above: Performed By: #### C BC ####[facility] Tqlkvpcucm4945 [place] [id number]. Airam Tripathi Platelet mean volume (Bld) [Entitic vol] 9.5 fL Normal 9.5-13.5 [facility] Comment on above: Performed By: #### C BC ####[facility] Loatvqkjfr[address] [place], [place] [address]Dr. Airam Deuce PLT 273 103/ul Normal 150-450 [facility] Comment on above: Performed By: #### C BC ####[facility] Ubcolfoiwx7[address] [place] [address]Dr. Airam Tripathi RBC 3.31 106/ul Critically low 4.20-5.40 [facility] Comment on above: Performed By: #### C BC ####[facility] Zczozvhojq33[address] [place] [address]Dr. Airam Tripathi WBC 7.0 103/ul Normal 4.0-11.0 [facility] Comment on above: Performed By: #### C BC ####[facility] Tprrhfhvks6790 [place] [address]Dr. Airam Tripathi PROF 14(COMP METB)on 022 Albumin [Mass/Vol] 3.4 g/dL Normal 3.4-5.0 [facility] Comment on above: Performed By: #### C MP ####[facility] Zsputpibta12[address] [place], [place] [address]Dr. Airam Tripathi Albumin/Globulin [Mass ratio] 1.1 {ratio} Normal [facility] Comment on above: Performed By: #### C MP ####[facility] Mxrkifhiww36[address] [place], [place] [address]Dr. Selenaneil Tripathi ALP [Catalytic activity/Vol] 107 U/L Normal 46-116 [facility] Comment on above: Performed By: #### C MP ####[facility] Pcajhrwcxo57[address] [place], [place] [address]Dr. Airam Tripathi ALT [Catalytic activity/Vol] 22 U/L Normal 14-59 [facility] Comment on above: Performed By: #### C MP ####[facility] Mdbcuhxfno8562 [place] [address]Dr. Airam Tripathi Anion gap [Moles/Vol] 6.8 mmol/L Normal [facility] Comment on above: Performed By: #### C MP ####[facility] Xnqxjfboci25[address] [place], [place] [address]Dr. Airam Tripathi AST [Catalytic activity/Vol] 23 U/L Normal 15-37 [facility] Comment on above: Performed By: #### C MP ####[facility] Ynbkhzkzie0960[address] [place], [place] [address]Dr. Airam Tripathi Bilirubin [Mass/Vol] 0.2 mg/dL Normal 0.2-1.0 [facility] Comment on above: Performed By: #### C MP ####[facility] Ypkdajhlfv95[address] [place], [place] [address]Dr. Airam Tripathi Calcium [Mass/Vol] 8.4 mg/dL Critically low 8.5-10.1 Th e [facility] Comment on above: Performed By: #### C MP ####[facility] Jmwaronnqn50[address] [place], [place] [address]Dr. Airam Tripathi Chloride [Moles/Vol] 100 mmol/L Normal 98-107 [facility] Comment on above: Performed By: #### C MP ####[facility] Gcdlgkglhb[address] [place], [place] [address]Dr. Airam Tripathi CO2 [Moles/Vol] 29.9 mmol/L Normal 21.0-32.0 [facility] Comment on above: Performed By: #### C MP ####[facility] Aatymbwnxq7[address] [place], [place] [address]Dr. Airam Tripathi Creatinine [Mass/Vol] 1.20 mg/dL Critically high 0.55-1.02 [facility] Comment on above: Performed By: #### C MP ####[facility] Hvnwfystwg5[address] [place], [place] [address]Dr. Airam Tripathi EGFR-AF PANAMANIAN 56 mL/min/1.73m2 Critically low >=60 [facility] Comment on above: Performed By: #### C MP ####[facility] Upupehrfct38[address] [place], [place] [address]Dr. Airam Deuce EGFR-NON AF PANAMANIAN 46 mL/min/1.73m2 Critically low >=60 [facility] Comment on above: Performed By: #### C MP ####[facility] Vmbzysfnxh9[address] [place], [place] [address]Dr. Airam Tripathi Globulin (S) [Mass/Vol] 3.0 g/dL Normal [facility] Comment on above: Performed By: #### C MP ####[facility] Efkopwmcff197[address] [place], [place] [address]Dr. Airam Tripathi Glucose [Mass/Vol] 57 mg/dL Critically low 74-106 Th [facility] Comment on above: Performed By: #### C MP ####[facility] Wvfkkokfvd0546 [place] [address]Dr. Airam Tripathi Potassium [Moles/Vol] 3.7 mmol/L Normal 3.5-5.1 [facility] Comment on above: Performed By: #### C MP ####[facility] Psjiauzwwd0446 [place] [address]Dr. Airam Tripathi Protein [Mass/Vol] 6.4 g/dL Normal 6.4-8.2 [facility] Comment on above: Performed By: #### C MP ####[facility] Rgkathykgq5040 [place] [address]Dr. Airam Tripathi Sodium [Moles/Vol] 133 mmol/L Critically low 136-145 Th [facility] Comment on above: Performed By: #### C MP ####[facility] Zhthrzconu2537 [place] [address]Dr. Airam Tripathi Urea nitrogen [Mass/Vol] 39.0 mg/dL Critically high 7.0-18.0 [facility] Comment on above: Performed By: #### C MP ####[facility] [address]tyhjhmbl[address] [place] [address]Dr. Airam Tripathi Urea nitrogen/Creatinine [Mass ratio] 32.5 mg/mg Normal [facility] Comment on above: Performed By: #### C MP ####[facility] Uouphpipjl88[address] [place] [address]Dr. Airam Tripathi OSMOLALITYon 03-24-2022 Osmolality [Osmolality] 285 mosm/kg Normal 275-295 [facility] Comment on above: Performed By: #### O SMO ####[facility] Xqvnlxueal89[address] [place] [address]Dr. Airam Tripathi CBC AUTO DIFFon 03-22-2022 BASO # 0.0 103/ul Normal 0.0-0.1 [facility] Comment on above: Performed By: #### C BC ####[facility] Cojhoneoxl7[address] [place] [id number]. Airam Tripathi Basophils/100 WBC (Bld) 0.4 % Normal 0.2-2.0 [facility] Comment on above: Performed By: #### C BC ####[facility] Dhitfdmdoj1281 [place] [id number]. Airam Tripathi EO # 0.2 103/ul Normal 0.0-0.7 [facility] Comment on above: Performed By: #### C BC ####[facility] [address]ogivrcd[address] [place], [place] [address]Dr. Airam Tripathi Eosinophils/100 WBC (Bld) 2.3 % Normal 0.9-7.0 [facility] Comment on above: Performed By: #### C BC ####[facility] Ypflaybtce45[address] [place], [place] [address]Dr. Airam Tripathi Erythrocyte distribution width (RBC) [Ratio] 13.9 % Normal 11.0-15.0 [facility] Comment on above: Performed By: #### C BC ####[facility] Mgeuudlflk[address] [place], [place] [address]Dr. Airam Tripathi Hematocrit (Bld) [Volume fraction] 32.6 % Critically low 36.0-48.0 [facility] Comment on above: Performed By: #### C BC ####[facility] [address]zahfljsrd18[address] [place] [id number]. Airam Tripathi Hemoglobin (Bld) [Mass/Vol] 10.3 g/dL Critically low 12.0-16.0 [facility] Comment on above: Performed By: #### C BC ####[facility] Fnnmqlehtk0216 [place] [id number]. Airam Tripathi IG # 0.11 10e3/ul Critically high 0.00-0.03 [facility] Comment on above: Performed By: #### C BC ####[facility] Lugpxej[address] [place], [place] [address]Dr. Airam Tripathi IG % 1.4 % Critically high 0.0-0.5 [facility] Comment on above: Performed By: #### C BC ####[facility] Ebrccnipjb2304 [place] [phone]. Airam Tripathi LYMPH # 1.3 103/ul Normal 1.2-3.8 [facility] Comment on above: Performed By: #### C BC ####[facility] Clgxepwysf2932 [place] [phone]. Airam Tripathi Lymphocytes/100 WBC (Bld) 15.9 % Critically low 20.5-60.0 [facility] Comment on above: Performed By: #### C BC ####[facility] Wjpqzfpiyb8595 [place] [phone]. Airam Tripathi MANUAL DIFF REQ NO Normal [facility] Comment on above: Performed By: #### C BC ####[facility] Uwmriammkg7[address] [place] [address]Dr. Airam Tripathi MCH (RBC) [Entitic mass] 30.7 pg Normal 26.7-34.0 [facility] Comment on above: Performed By: #### C BC ####[facility] Swrmozsvil9991 [place] [phone]. Airam Tripathi MCHC (RBC) [Mass/Vol] 31.6 g/dL Normal 29.9-35.2 [facility] Comment on above: Performed By: #### C BC ####[facility] Aoianpoaqs1743 [place] [id number]. Airam Tripathi MCV (RBC) [Entitic vol] 97.0 fL Normal 81.0-99.0 [facility] Comment on above: Performed By: #### C BC ####[facility] Ziccmozprj5090 [place] [id number]. Airam Tripathi MONO # 0.6 103/ul Normal 0.3-0.8 [facility] Comment on above: Performed By: #### C BC ####[facility] Jwpvujdrhw9044 [place] [id number]. Airam Tripathi Monocytes/100 WBC (Bld) 6.9 % Normal 1.7-12.0 [facility] Comment on above: Performed By: #### C BC ####[facility] Qbhnnmfexm4603 [place] [id number]. Airam Tripathi NEUT # 5.9 103/ul Normal 1.4-6.5 [facility] Comment on above: Performed By: #### C BC ####[facility] Rhohnenwfh7289 [place] [id number]. Airam Tripathi Neutrophils/100 WBC (Bld) 73.1 % Normal 43.0-75.0 [facility] Comment on above: Performed By: #### C BC ####[facility] Vwscexscss2656 [place] [phone]. Airam Tripathi Platelet mean volume (Bld) [Entitic vol] 9.5 fL Normal 9.5-13.5 [facility] Comment on above: Performed By: #### C BC ####[facility] Leshujvmux9816 [place] [id number]. Airam Tripathi PLT 313 103/ul Normal 150-450 [facility] Comment on above: Performed By: #### C BC ####[facility] Rnrtskbmay3339 [place] [phone]. Airam Tripathi RBC 3.36 106/ul Critically low 4.20-5.40 [facility] Comment on above: Performed By: #### C BC ####[facility] Emnjexzcaf2632 [place] [phone]. Airam Tripathi WBC 8.1 103/ul Normal 4.0-11.0 [facility] Comment on above: Performed By: #### C BC ####[facility] Qylzbvtpea5196 [place] [phone]. Airam Deuce PROF 14(COMP METB)on 022 Albumin [Mass/Vol] 3.3 g/dL Critically low 3.4-5.0 [facility] Comment on above: Performed By: #### C MP ####[facility] Ozebtifvob2177 [place] [phone]. Airam Deuce Albumin/Globulin [Mass ratio] 1.0 {ratio} Normal [facility] Comment on above: Performed By: #### C MP ####[facility] Algzzieqgf6719 [place] [phone]. Airam Tripathi ALP [Catalytic activity/Vol] 113 U/L Normal 46-116 [facility] Comment on above: Performed By: #### C MP ####[facility] Byzdqmhxtb6791 [place] [phone]. Airam Tripathi ALT [Catalytic activity/Vol] 21 U/L Normal 14-59 [facility] Comment on above: Performed By: #### C MP ####[facility] Zwrflmadpn0929 [place] [phone]. Airam Tripathi Anion gap [Moles/Vol] 12.2 mmol/L Normal [facility] Comment on above: Performed By: #### C MP ####[facility] Nazotwsqol[address] [place], [place] [address]Dr. Airam Tripathi AST [Catalytic activity/Vol] 21 U/L Normal 15-37 [facility] Comment on above: Performed By: #### C MP ####[facility] Hdjnsdqkqe[address] [place], [place] [address]Dr. Airam Tripathi Bilirubin [Mass/Vol] 0.2 mg/dL Normal 0.2-1.0 [facility] Comment on above: Performed By: #### C MP ####[facility] Notcwoaakm[address] [place], [place] [address]Dr. Airam Tripathi Calcium [Mass/Vol] 8.4 mg/dL Critically low 8.5-10.1 [facility] Comment on above: Performed By: #### C MP ####[facility] Ybvltehehg5983 [place] [phone]. Airam Tripathi Chloride [Moles/Vol] 103 mmol/L Normal 98-107 [facility] Comment on above: Performed By: #### C MP ####[facility] [facility] [address] [place], [place] [address]Dr. Airam Tripathi CO2 [Moles/Vol] 24.4 mmol/L Normal 21.0-32.0 [facility] Comment on above: Performed By: #### C MP ####[facility] [address] [place] [id number]. Airam Tripahti Creatinine [Mass/Vol] 1.11 mg/dL Critically high 0.55-1.02 [facility] Comment on above: Performed By: #### C MP ####[facility] [address]fozxzta[address] [place] [address]Dr. Airam Tripathi EGFR-AF PANAMANIAN >60 Normal >=60 [facility] Comment on above: Performed By: #### C MP ####[facility] Vomfylpnfg[address] [place] [address]Dr. Airam Deuce EGFR-NON AF PANAMANIAN 50 mL/min/1.73m2 Critically low >=60 [facility] Comment on above: Performed By: #### C MP ####[facility] Tfvcawiqjq[address] [place] [address]Dr. Airam Tripathi Globulin (S) [Mass/Vol] 3.2 g/dL Normal [facility] Comment on above: Performed By: #### C MP ####[facility] Sictlsxygr[address] [place], [place] [address]Dr. Airam Deuce Glucose [Mass/Vol] 84 mg/dL Normal 74-106 [facility] Comment on above: Performed By: #### C MP ####[facility] Juqllgapek[address] [place], [place] [address]Dr. Airam Tripathi Potassium [Moles/Vol] 4.6 mmol/L Normal 3.5-5.1 [facility] Comment on above: Performed By: #### C MP ####[facility] Ndgfktglkl84[address] [place], [place] [address]Dr. Airam Deuce Protein [Mass/Vol] 6.5 g/dL Normal 6.4-8.2 [facility] Comment on above: Performed By: #### C MP ####[facility] Ljuojappqv00[address] [place], [place] [address]Dr. Airam Tripathi Sodium [Moles/Vol] 135 mmol/L Critically low 136-145 [facility] Comment on above: Performed By: #### C MP ####[facility] Bvkmvmzroy78[address] [place], [place] [address]Dr. Airam Tripathi Urea nitrogen [Mass/Vol] 39.0 mg/dL Critically high 7.0-18.0 [facility] Comment on above: Performed By: #### C MP ####[facility] R[address]jhjzwqp[address] [place] [address]Dr. Airam Tripathi Urea nitrogen/Creatinine [Mass ratio] 35.1 mg/mg Normal [facility] Comment on above: Performed By: #### C MP ####[facility] Zenhismbpk71[address] [place], [place] [address]Dr. Airam Tripathi OSMOLALITYon 03-17-2022 Osmolality [Osmolality] 277 mosm/kg Normal 275-295 [facility] Comment on above: Performed By: #### O SMO ####[facility] Bcsexuhgvj8[address] [place], [place] [address]Dr. Airam Tripathi CBC AUTO DIFFon 03-15-2022 BASO # 0.0 103/ul Normal 0.0-0.1 [facility] Comment on above: Performed By: #### C BC ####[facility] Mwxdvjfibu4[address] [place], [place] [address]Dr. Airam Tripathi Basophils/100 WBC (Bld) 0.4 % Normal 0.2-2.0 [facility] Comment on above: Performed By: #### C BC ####[facility] Ktwnoegwdc137[address] [place], [place] [address]Dr. Airam Tripathi EO # 0.1 103/ul Normal 0.0-0.7 [facility] Comment on above: Performed By: #### C BC ####[facility] Rhytatjjci6615[address] [place], [place] [address]Dr. Airam Tripathi Eosinophils/100 WBC (Bld) 2.4 % Normal 0.9-7.0 [facility] Comment on above: Performed By: #### C BC ####[facility] Unklejayow09[address] [place], [place] [address]Dr. Airam Tripathi Erythrocyte distribution width (RBC) [Ratio] 13.9 % Normal 11.0-15.0 [facility] Comment on above: Performed By: #### C BC ####[facility] [address]jp[address]qx[address] [place] [address]Dr. Airam Tripathi Hematocrit (Bld) [Volume fraction] 31.2 % Critically low 36.0-48.0 [facility] Comment on above: Performed By: #### C BC ####[facility] Czwjtlxiky8[address] [place] [address]Dr. Airam Tripathi Hemoglobin (Bld) [Mass/Vol] 9.9 g/dL Critically low 12.0-16.0 [facility] Comment on above: Performed By: #### C BC ####[facility] Nhdvlcicvs[address] [place], [place] [address]Dr. Airam Tripathi IG # 0.03 10e3/ul Normal 0.00-0.03 [facility] Comment on above: Performed By: #### C BC ####[facility] Kksloftfrd259[address] [place], [place] [address]Dr. Airam Tripathi IG % 0.6 % Critically high 0.0-0.5 [facility] Comment on above: Performed By: #### C BC ####[facility] Gblcdbthoz49[address] [place], [place] [address]Dr. Selenaneil Tripathi LYMPH # 1.5 103/ul Normal 1.2-3.8 [facility] Comment on above: Performed By: #### C BC ####[facility] Zaqyxnyymm84[address] [place], [place] [address]Dr. Airam Tripathi Lymphocytes/100 WBC (Bld) 29.4 % Normal 20.5-60.0 [facility] Comment on above: Performed By: #### C BC ####[facility] Wgxkqremiz5[address] [place], [place] [address]Dr. Selenaneil Tripathi MANUAL DIFF REQ NO Normal [facility] Comment on above: Performed By: #### C BC ####[facility] Woktfimiqj242[address] [place], [place] [address]Dr. Selenaneil Tripathi MCH (RBC) [Entitic mass] 30.5 pg Normal 26.7-34.0 [facility] Comment on above: Performed By: #### C BC ####[facility] Lxvatvswzd5252 [place] [phone]. Airam Tripathi MCHC (RBC) [Mass/Vol] 31.7 g/dL Normal 29.9-35.2 [facility] Comment on above: Performed By: #### C BC ####[facility] Sohbxrnlfb4125 [place] [phone]. Airam Tripathi MCV (RBC) [Entitic vol] 96.0 fL Normal 81.0-99.0 [facility] Comment on above: Performed By: #### C BC ####[facility] Kglltdcvez2504 [place] [phone]. Airam Tripathi MONO # 0.4 103/ul Normal 0.3-0.8 [facility] Comment on above: Performed By: #### C BC ####[facility] Fatidfeoyn101[address] [place], [place] [address]Dr. Selenaneil Tripathi Monocytes/100 WBC (Bld) 7.0 % Normal 1.7-12.0 [facility] Comment on above: Performed By: #### C BC ####[facility] Rxbebjctnd[address] [place], [place] [id number]. Airam Tripathi NEUT # 3.0 103/ul Normal 1.4-6.5 [facility] Comment on above: Performed By: #### C BC ####[facility] Gyvswczcvv[address] [place], [place] [address]Dr. Airam Deuce Neutrophils/100 WBC (Bld) 60.2 % Normal 43.0-75.0 [facility] Comment on above: Performed By: #### C BC ####[facility] Drojehmank6384 [place] [phone]. Airam Tripathi Platelet mean volume (Bld) [Entitic vol] 9.6 fL Normal 9.5-13.5 [facility] Comment on above: Performed By: #### C BC ####[facility] Tlkzllpiya[address] [place], [place] [address]Dr. Airam Deuce PLT 258 103/ul Normal 150-450 [facility] Comment on above: Performed By: #### C BC ####[facility] Bzqvilixih8991 [place] [phone]. Airam Tripathi RBC 3.25 106/ul Critically low 4.20-5.40 [facility] Comment on above: Performed By: #### C BC ####[facility] Mkaymztdmy6[address] [place] [address]Dr. Airam Tripathi WBC 5.0 103/ul Normal 4.0-11.0 [facility] Comment on above: Performed By: #### C BC ####[facility] Mevucizqqt45[address] [place] [address]Dr. Airam Tripathi PROF 14(COMP METB)on 022 Albumin [Mass/Vol] 3.3 g/dL Critically low 3.4-5.0 [facility] Comment on above: Performed By: #### C MP ####[facility] Uwmtblsgkd1600[address] [place], [place] [address]Dr. Airam Tripathi Albumin/Globulin [Mass ratio] 1.1 {ratio} Normal [facility] Comment on above: Performed By: #### C MP ####[facility] Xqmrrfekgd[address] [place], [place] [address]Dr. Airam Tripathi ALP [Catalytic activity/Vol] 106 U/L Normal 46-116 [facility] Comment on above: Performed By: #### C MP ####[facility] Mzdexuumbd5835[address] [place], [place] [address]Dr. Airam Tripathi ALT [Catalytic activity/Vol] 22 U/L Normal 14-59 [facility] Comment on above: Performed By: #### C MP ####[facility] Tjebjnwpyo[address] [place], [place] [address]Dr. Airam Tripathi Anion gap [Moles/Vol] 11.4 mmol/L Normal [facility] Comment on above: Performed By: #### C MP ####[facility] Dhmspvgngm8666[address] [place], [place] [address]Dr. Airam Tripathi AST [Catalytic activity/Vol] 22 U/L Normal 15-37 [facility] Comment on above: Performed By: #### C MP ####[facility] Dvulrwtbyx5[address] [place] [address]Dr. Airam Tripathi Bilirubin [Mass/Vol] 0.3 mg/dL Normal 0.2-1.0 [facility] Comment on above: Performed By: #### C MP ####[facility] Kfbrxtltxc5586[address] [place], [place] [address]Dr. Airam Tripathi Calcium [Mass/Vol] 8.1 mg/dL Critically low 8.5-10.1 [facility] Comment on above: Performed By: #### C MP ####[facility] Sznehblswt6823[address] [place], [place] [address]Dr. Airam Tripathi Chloride [Moles/Vol] 100 mmol/L Normal 98-107 [facility] Comment on above: Performed By: #### C MP ####[facility] Iifzfsdlba038[address] [place], [place] [address]Dr. Airam Tripathi CO2 [Moles/Vol] 25.6 mmol/L Normal 21.0-32.0 [facility] Comment on above: Performed By: #### C MP ####[facility] Sbfmdlamjn[address] [place], [place] [address]Dr. Airam Tripathi Creatinine [Mass/Vol] 1.21 mg/dL Critically high 0.55-1.02 [facility] Comment on above: Performed By: #### C MP ####[facility] Amenjeojdj7640[address] [place], [place] [address]Dr. Airam Tripathi EGFR-AF PANAMANIAN 55 mL/min/1.73m2 Critically low >=60 [facility] Comment on above: Performed By: #### C MP ####[facility] Rfystzvfjf9[address] [place], [place] [address]Dr. Airam Deuce EGFR-NON AF PANAMANIAN 45 mL/min/1.73m2 Critically low >=60 [facility] Comment on above: Performed By: #### C MP ####[facility] Uraaoizhhp672[address] [place], [place] [address]Dr. Airam Deuce Globulin (S) [Mass/Vol] 3.0 g/dL Normal [facility] Comment on above: Performed By: #### C MP ####[facility] Fonhrmcbty[address] [place] [address]Dr. Airam Tripathi Glucose [Mass/Vol] 84 mg/dL Normal 74-106 [facility] Comment on above: Performed By: #### C MP ####[facility] Ojkfwqkbvc60[address] [place], [place] [address]Dr. Airam Tripathi Potassium [Moles/Vol] 4.0 mmol/L Normal 3.5-5.1 [facility] Comment on above: Performed By: #### C MP ####[facility] Iueaiipgly4[address] [place], [place] [address]Dr. Airam Tripathi Protein [Mass/Vol] 6.3 g/dL Critically low 6.4-8.2 Th [facility] Comment on above: Performed By: #### C MP ####[facility] Bvwjjcowws[address] [place], [place] [address]Dr. Airam Tripathi Sodium [Moles/Vol] 133 mmol/L Critically low 136-145 [facility] Comment on above: Performed By: #### C MP ####[facility] Nwbqcemsbe2687[address] [place], [place] [address]Dr. Airam Tripathi Urea nitrogen [Mass/Vol] 29.0 mg/dL Critically high 7.0-18.0 [facility] Comment on above: Performed By: #### C MP ####[facility] Fsjazqekbd7[address] [place], [place] [address]Dr. Airam Tripathi Urea nitrogen/Creatinine [Mass ratio] 24.0 mg/mg Normal [facility] Comment on above: Performed By: #### C MP ####[facility] Yhnotffdgl1987[address] [place], [place] [address]Dr. Airam Tripathi OSMOLALITYon 03-12-2022 Osmolality [Osmolality] 285 mosm/kg Normal 275-295 [facility] Comment on above: Performed By: #### O SMO ####[facility] Oyfzoitdrm7614[address] [place], [place] [address]Dr. Airam Tripathi CBC AUTO DIFFon 03-10-2022 BASO # 0.0 103/ul Normal 0.0-0.1 [facility] Comment on above: Performed By: #### C BC ####[facility] Kfpxjdggqx6657 [place] [id number]. Airam Tripathi Basophils/100 WBC (Bld) 0.3 % Normal 0.2-2.0 [facility] Comment on above: Performed By: #### C BC ####[facility] [address]qgrrwt[address] [place], [place] [address]Dr. Airam Tripathi EO # 0.2 103/ul Normal 0.0-0.7 [facility] Comment on above: Performed By: #### C BC ####[facility] Jlxxsphzds24[address] [place], [place] [address]Dr. Airam Tripathi Eosinophils/100 WBC (Bld) 2.7 % Normal 0.9-7.0 [facility] Comment on above: Performed By: #### C BC ####[facility] Xcqqmcuvas7[address] [place], [place] [address]Dr. Airam Tripathi Erythrocyte distribution width (RBC) [Ratio] 14.4 % Normal 11.0-15.0 [facility] Comment on above: Performed By: #### C BC ####[facility] Xiwvyoqive[address] [place], [place] [address]Dr. Airam Tripathi Hematocrit (Bld) [Volume fraction] 32.5 % Critically low 36.0-48.0 [facility] Comment on above: Performed By: #### C BC ####[facility] Ifnofunnto[address] [place], [place] [address]Dr. Airam Tripathi Hemoglobin (Bld) [Mass/Vol] 10.1 g/dL Critically low 12.0-16.0 [facility] Comment on above: Performed By: #### C BC ####[facility] Udbnsgckiu097[address] [place], [place] [address]Dr. Airam Tripathi IG # 0.03 10e3/ul Normal 0.00-0.03 [facility] Comment on above: Performed By: #### C BC ####[facility] Oksqvpmzte[address] [place], [place] [address]Dr. Airam Tripathi IG % 0.4 % Normal 0.0-0.5 [facility] Comment on above: Performed By: #### C BC ####[facility] Qiqylxsifu[address] [place] [id number]. Airam Tripathi LYMPH # 1.4 103/ul Normal 1.2-3.8 [facility] Comment on above: Performed By: #### C BC ####[facility] Bmsffmziff8160 [place] [phone]. Airam Deuce Lymphocytes/100 WBC (Bld) 19.4 % Critically low 20.5-60.0 [facility] Comment on above: Performed By: #### C BC ####[facility] [address]fthrmuo[address] [place] [address]Dr. Selenaneil Tripathi MANUAL DIFF REQ NO Normal [facility] Comment on above: Performed By: #### C BC ####[facility] Rjwwfobqaa2[address] [place] [address]Dr. Airam Deuce MCH (RBC) [Entitic mass] 30.6 pg Normal 26.7-34.0 [facility] Comment on above: Performed By: #### C BC ####[facility] Geznzrvbao[address] [place] [id number]. Airam Tripathi MCHC (RBC) [Mass/Vol] 31.1 g/dL Normal 29.9-35.2 [facility] Comment on above: Performed By: #### C BC ####[facility] B[address]ocwwohyr[address] [place] [address]Dr. Airam Deuce MCV (RBC) [Entitic vol] 98.5 fL Normal 81.0-99.0 [facility] Comment on above: Performed By: #### C BC ####[facility] Ralxiuxkww24[address] [place] [id number]. Airam Tripathi MONO # 0.5 103/ul Normal 0.3-0.8 [facility] Comment on above: Performed By: #### C BC ####[facility] O[address]ihvkoje[address] [place] [id number]. Airam Deuce Monocytes/100 WBC (Bld) 6.7 % Normal 1.7-12.0 [facility] Comment on above: Performed By: #### C BC ####[facility] Nhbeqezkvb2548 [place] [id number]. Airam Tripathi NEUT # 5.2 103/ul Normal 1.4-6.5 [facility] Comment on above: Performed By: #### C BC ####[facility] Jqjpcyojhm8243 [place] [phone]. Airam Tripathi Neutrophils/100 WBC (Bld) 70.5 % Normal 43.0-75.0 [facility] Comment on above: Performed By: #### C BC ####[facility] Mknyshhfyi30[address] [place] [address]Dr. Airam Tripathi Platelet mean volume (Bld) [Entitic vol] 9.8 fL Normal 9.5-13.5 [facility] Comment on above: Performed By: #### C BC ####[facility] Frejjgtkyh[address] [place] [address]Dr. Airam Tripathi PLT 277 103/ul Normal 150-450 [facility] Comment on above: Performed By: #### C BC ####[facility] Mmadbsirzn17[address] [place], [place] [address]Dr. Airam Tripathi RBC 3.30 106/ul Critically low 4.20-5.40 [facility] Comment on above: Performed By: #### C BC ####[facility] Zlnqvemivm7[address] [place] [address]Dr. Airam Tripathi WBC 7.4 103/ul Normal 4.0-11.0 [facility] Comment on above: Performed By: #### C BC ####[facility] Fxxfwjubga23[address] [place], [place] [address]Dr. Airam Tripathi PROF 14(COMP METB)on 022 Albumin [Mass/Vol] 3.6 g/dL Normal 3.4-5.0 [facility] Comment on above: Performed By: #### C MP ####[facility] Vqnddlnbib4[address] [place], [place] [address]Dr. Airam Deuce Albumin/Globulin [Mass ratio] 1.1 {ratio} Normal [facility] Comment on above: Performed By: #### C MP ####[facility] Krdcdkmrwc6082 [place] [phone]. Airam Tripathi ALP [Catalytic activity/Vol] 112 U/L Normal 46-116 [facility] Comment on above: Performed By: #### C MP ####[facility] Gwqtqkjtut70[address] [place] [phone]. Airam Tripathi ALT [Catalytic activity/Vol] 26 U/L Normal 14-59 [facility] Comment on above: Performed By: #### C MP ####[facility] Rvzlckeewr2379 [place] [phone]. Airam Tripathi Anion gap [Moles/Vol] 12.0 mmol/L Normal Th e [facility] Comment on above: Performed By: #### C MP ####[facility] Qfxwjlteiq527[address] [place], [place] [address]Dr. Airam Tripathi AST [Catalytic activity/Vol] 25 U/L Normal 15-37 [facility] Comment on above: Performed By: #### C MP ####[facility] Vfpkduvtzz39[address] [place], [place] [address]Dr. Airam Tripathi Bilirubin [Mass/Vol] 0.4 mg/dL Normal 0.2-1.0 [facility] Comment on above: Performed By: #### C MP ####[facility] Fskczrmivo[address] [place], [place] [address]Dr. Airam Tripathi Calcium [Mass/Vol] 8.9 mg/dL Normal 8.5-10.1 [facility] Comment on above: Performed By: #### C MP ####[facility] [address]zexatxpeo11[address] [place], [place] [address]Dr. Airam Tripathi Chloride [Moles/Vol] 101 mmol/L Normal 98-107 [facility] Comment on above: Performed By: #### C MP ####[facility] Xytbhgpdir108[address] [place], [place] [address]Dr. Airam Tripathi CO2 [Moles/Vol] 24.0 mmol/L Normal 21.0-32.0 [facility] Comment on above: Performed By: #### C MP ####[facility] Krzrvkxpqr4534 [place] [phone]. Airam Tripathi Creatinine [Mass/Vol] 1.51 mg/dL Critically high 0.55-1.02 [facility] Comment on above: Performed By: #### C MP ####[facility] Pdbjjnfffr7168 [place] [phone]. Airam Tripathi EGFR-AF PANAMANIAN 43 mL/min/1.73m2 Critically low >=60 [facility] Comment on above: Performed By: #### C MP ####[facility] Xaxlauzbri24[address] [place] [phone]. Airam Tripathi EGFR-NON AF PANAMANIAN 35 mL/min/1.73m2 Critically low >=60 [facility] Comment on above: Performed By: #### C MP ####[facility] Ozjcnykuyv[address] [place] [address]Dr. Airam Tripathi Globulin (S) [Mass/Vol] 3.2 g/dL Normal [facility] Comment on above: Performed By: #### C MP ####[facility] Wwezfkpfdj9679 [place] [address]Dr. Airam Tripathi Glucose [Mass/Vol] 82 mg/dL Normal 74-106 [facility] Comment on above: Performed By: #### C MP ####[facility] Hwblhrepmv9479 [place] [address]Dr. Airam Tripathi Potassium [Moles/Vol] 4.0 mmol/L Normal 3.5-5.1 [facility] Comment on above: Performed By: #### C MP ####[facility] Ycsovlykjs3278 [place] [address]Dr. Airam Tripathi Protein [Mass/Vol] 6.8 g/dL Normal 6.4-8.2 [facility] Comment on above: Performed By: #### C MP ####[facility] Dtlaladhqd3057 [place] [address]Dr. Airam Tripathi Sodium [Moles/Vol] 133 mmol/L Critically low 136-145 [facility] Comment on above: Performed By: #### C MP ####[facility] Yldeumsfdh85[address] [place], [place] [address]Dr. Airam Tripathi Urea nitrogen [Mass/Vol] 37.0 mg/dL Critically high 7.0-18.0 [facility] Comment on above: Performed By: #### C MP ####[facility] Ifctohbaqn[address] [place], [place] [address]Dr. Airam Tripathi Urea nitrogen/Creatinine [Mass ratio] 24.5 mg/mg Normal [facility] Comment on above: Performed By: #### C MP ####[facility] Lsrzcupcdo83[address] [place], [place] [address]Dr. Airam Tripathi OSMOLALITYon 03-07-2022 Osmolality [Osmolality] 284 mosm/kg Normal 275-295 [facility] Comment on above: Performed By: #### O SMO ####[facility] Gvwclqskaw[address] [place], [place] [address]Dr. Airam Tripathi CBC AUTO DIFFon 03-04-2022 BASO # 0.0 103/ul Normal 0.0-0.1 [facility] Comment on above: Performed By: #### C BC ####[facility] Gfrgshvqjh84[address] [place], [place] [address]Dr. Airam Tripathi Basophils/100 WBC (Bld) 0.3 % Normal 0.2-2.0 [facility] Comment on above: Performed By: #### C BC ####[facility] [address]gwmkxddfs9590[address] [place], [place] [address]Dr. Airam Tripathi EO # 0.1 103/ul Normal 0.0-0.7 [facility] Comment on above: Performed By: #### C BC ####[facility] Wxnapavyrz40[address] [place], [place] [address]Dr. Airam Tripathi Eosinophils/100 WBC (Bld) 2.0 % Normal 0.9-7.0 [facility] Comment on above: Performed By: #### C BC ####[facility] Netxlucaao6[address] [place], [place] [address]Dr. Airam Tripathi Erythrocyte distribution width (RBC) [Ratio] 14.5 % Normal 11.0-15.0 [facility] Comment on above: Performed By: #### C BC ####[facility] [address]qclapmy[address] [place] [address]Dr. Airam Tripathi Hematocrit (Bld) [Volume fraction] 35.4 % Critically low 36.0-48.0 [facility] Comment on above: Performed By: #### C BC ####[facility] Zisnxlxpvs[address] [place], [place] [address]Dr. Airam Tripathi Hemoglobin (Bld) [Mass/Vol] 11.0 g/dL Critically low 12.0-16.0 [facility] [place] Comment on above: Performed By: #### C BC ####[facility] [place] Wemzyuctgn[address] [place], [place] [address]Dr. Airam Tripathi IG # 0.03 10e3/ul Normal 0.00-0.03 [facility] [place] Comment on above: Performed By: #### C BC ####[facility] [place] Zhwkytalof[address] [place], [place] [address]Dr. Airam Tripathi IG % 0.4 % Normal 0.0-0.5 [facility] [place] Comment on above: Performed By: #### C BC ####[facility] [place] Vwajmzreek375[address] [place], [place] [address]Dr. Airam Tripathi LYMPH # 1.7 103/ul Normal 1.2-3.8 [facility] [place] Comment on above: Performed By: #### C BC ####[facility] [place] Yvehfbgwtw1915[address] [place], [place] [address]Dr. Airam Tripathi Lymphocytes/100 WBC (Bld) 23.8 % Normal 20.5-60.0 [facility] [place] Comment on above: Performed By: #### C BC ####[facility] [place] Osckpgitxn358[address] [place], [place] [address]Dr. Airam Tripathi MANUAL DIFF REQ NO Normal [facility] [place] Comment on above: Performed By: #### C BC ####[facility] [place] Omwiqnfdje006333 [address] [place], [place] [address]Dr. Airam Tripathi MCH (RBC) [Entitic mass] 30.0 pg Normal 26.7-34.0 [facility] [place] Comment on above: Performed By: #### C BC ####[facility] [place] [address]tuoxfs[address] [place] [id number]. Airam Deuce MCHC (RBC) [Mass/Vol] 31.1 g/dL Normal 29.9-35.2 [facility] [place] Comment on above: Performed By: #### C BC ####[facility] [place] Wdmhusnjye8710 [place] [id number]. Airam Tripathi MCV (RBC) [Entitic vol] 96.5 fL Normal 81.0-99.0 [facility] [place] Comment on above: Performed By: #### C BC ####[facility] [place] Fupqmpzjco029[address] [place], [place] [address]Dr. Airam Tripahti MONO # 0.5 103/ul Normal 0.3-0.8 [facility] [place] Comment on above: Performed By: #### C BC ####[facility] [place] Qsanfnkiin995233 [address] [place], [place] [address]Dr. Airam Tripathi Monocytes/100 WBC (Bld) 6.6 % Normal 1.7-12.0 [facility] [place] Comment on above: Performed By: #### C BC ####[facility] [place] Lenrbgellq232[address] [place], [place] [address]Dr. Airam Tripathi NEUT # 4.7 103/ul Normal 1.4-6.5 [facility] [place] Comment on above: Performed By: #### C BC ####[facility] [place] Xfmbehrjgv998[address] [place], [place] [address]Dr. Airam Tripathi Neutrophils/100 WBC (Bld) 66.9 % Normal 43.0-75.0 [facility] [place] Comment on above: Performed By: #### C BC ####[facility] [place] Gwmsmozlqt427[address] [place], [place] [address]Dr. Airam Tripathi Platelet mean volume (Bld) [Entitic vol] 10.2 fL Normal 9.5-13.5 [facility] [place] Comment on above: Performed By: #### C BC ####[facility] [place] Qlukuiuian[address] [place], [place] [id number]. Airam Tripathi PLT 270 103/ul Normal 150-450 [facility] [place] Comment on above: Performed By: #### C BC ####[facility] [place] Nxcvyttquf4814 [place] [phone]. Airam Triptahi RBC 3.67 106/ul Critically low 4.20-5.40 [facility] Comment on above: Performed By: #### C BC ####[facility] [place] Sjyvyeayqv2926 [place] [phone]. Airam Tripathi WBC 7.0 103/ul Normal 4.0-11.0 [facility] Comment on above: Performed By: #### C BC ####[facility] [place] Hteoapzhzn[address] [place] [address]Dr. Airam Tripathi PROF 14(COMP METB)on 022 Albumin [Mass/Vol] 3.3 g/dL Critically low 3.4-5.0 [facility] Comment on above: Performed By: #### C MP ####[facility] [place] V[address]tjqwj[address] [place] [address]Dr. Airam Tripathi Albumin/Globulin [Mass ratio] 1.0 {ratio} Normal [facility] Comment on above: Performed By: #### C MP ####[facility] [place] Lugcylofvi2203 [place] [address]Dr. Airam Tripathi ALP [Catalytic activity/Vol] 107 U/L Normal 46-116 [facility] Comment on above: Performed By: #### C MP ####[facility] [place] Acelexcjck3813 [place] [address]Dr. Airam Tripathi ALT [Catalytic activity/Vol] 23 U/L Normal 14-59 [facility] Comment on above: Performed By: #### C MP ####[facility] [place] Ypbuycmihx4944 [place] [address]Dr. Airam Tripathi Anion gap [Moles/Vol] 13.0 mmol/L Normal [facility] Comment on above: Performed By: #### C MP ####[facility] [place] Ftesccggnd1408 [place] [address]Dr. Airam Tripathi AST [Catalytic activity/Vol] 30 U/L Normal 15-37 [facility] Comment on above: Performed By: #### C MP ####[facility] [place] Bykfbcqtmg5742 [place] [phone]. Airam Tripathi Bilirubin [Mass/Vol] 0.2 mg/dL Normal 0.2-1.0 [facility] [place] Comment on above: Performed By: #### C MP ####[facility] [place] Ltwaiafqwl[address] [place] [phone]. Airam Tripathi Calcium [Mass/Vol] 8.8 mg/dL Normal 8.5-10.1 [facility] [place] Comment on above: Performed By: #### C MP ####[facility] [place] Znyjfzxrrf2751 [place] [phone]. Airam Tripathi Chloride [Moles/Vol] 103 mmol/L Normal 98-107 [facility] [place] Comment on above: Performed By: #### C MP ####[facility] [place] Rthamhopak5[address] [place] [address]Dr. Airam Tripathi CO2 [Moles/Vol] 24.9 mmol/L Normal 21.0-32.0 [facility] [place] Comment on above: Performed By: #### C MP ####[facility] [place] Lxaxqpnoav[address] [place], [place] [address]Dr. Airam Tripathi Creatinine [Mass/Vol] 1.06 mg/dL Critically high 0.55-1.02 [facility] [place] Comment on above: Performed By: #### C MP ####[facility] Cysfliwasp0170 [place] [phone]. Airam Deuce EGFR-AF PANAMANIAN >60 Normal >=60 [facility] [place] Comment on above: Performed By: #### C MP ####[facility] [place] Srailltjef5307 [place] [phone]. Airam Deuce EGFR-NON AF PANAMANIAN 53 mL/min/1.73m2 Critically low >=60 [facility] [place] Comment on above: Performed By: #### C MP ####[facility] [place] Kdgckqeesc3264[address] [place], [place] [address]Dr. Airam Deuce Globulin (S) [Mass/Vol] 3.2 g/dL Normal [facility] [place] Comment on above: Performed By: #### C MP ####[facility] [place] Pmznvxgabb3151 [place] [address]Dr. Airam Tripathi Glucose [Mass/Vol] 91 mg/dL Normal 74-106 [facility] [place] Comment on above: Performed By: #### C MP ####[facility] Iuydhqltwv7120 [place] [address]Dr. Airam Tripathi Potassium [Moles/Vol] 3.9 mmol/L Normal 3.5-5.1 [facility] [place] Comment on above: Performed By: #### C MP ####[facility] [place] Utdxtoyeag1355[address] [place], [place] [address]Dr. Airam Tripathi Protein [Mass/Vol] 6.5 g/dL Normal 6.4-8.2 [facility] [place] Comment on above: Performed By: #### C MP ####[facility] [place] Axaqpgwohi1758[address] [place], [place] [address]Dr. Airam Tripathi Sodium [Moles/Vol] 137 mmol/L Normal 136-145 [facility] [place] Comment on above: Performed By: #### C MP ####[facility] [place] Nupfhqxleo6255[address] [place], [place] [address]Dr. Airam Tripathi Urea nitrogen [Mass/Vol] 27.0 mg/dL Critically high 7.0-18.0 [facility] [place] Comment on above: Performed By: #### C MP ####[facility] [place] Jpfbrukchj285[address] [place], [place] [address]Dr. Airam Tripathi Urea nitrogen/Creatinine [Mass ratio] 25.5 mg/mg Normal [facility] [place] Comment on above: Performed By: #### C MP ####[facility] [place] Yhzaiaswtj033[address] [place], [place] [address]Dr. Airam Tripathi OSMOLALITYon 03-03-2022 Osmolality [Osmolality] 383 mosm/kg Invalid Interpretation Code [id number] [facility] [place] Comment on above: Result Comment: Ve rified by repeat analysis Performed By: #### O SMO ####[facility] [place] Pjqaibyyjo188[address] [place], [place] [address]Dr. Airam Tripathi CBC AUTO DIFFon 02-22-2022 BASO # 0.0 103/ul Normal 0.0-0.1 [facility] [place] Comment on above: Performed By: #### C BC ####[facility] [place] Utsjsrkjvw5720 [place] [phone]. Airam Tripathi Basophils/100 WBC (Bld) 0.4 % Normal 0.2-2.0 [facility] [place] Comment on above: Performed By: #### C BC ####[facility] [place] Corwpqebth[address] [place], [place] [address]Dr. Airam Tripathi EO # 0.2 103/ul Normal 0.0-0.7 [facility] [place] Comment on above: Performed By: #### C BC ####[facility] [place] Tmxjesvshb1737[address] [place], [place] [address]Dr. Airam Tripathi Eosinophils/100 WBC (Bld) 3.9 % Normal 0.9-7.0 [facility] [place] Comment on above: Performed By: #### C BC ####[facility] [place] Pjvklbxxxu038[address] [place], [place] [address]Dr. Airam Tripathi Erythrocyte distribution width (RBC) [Ratio] 13.9 % Normal 11.0-15.0 [facility] [place] Comment on above: Performed By: #### C BC ####[facility] [place] Mqsxeqzbrf309[address] [place], [place] [address]Dr. Airam Tripathi Hematocrit (Bld) [Volume fraction] 32.7 % Critically low 36.0-48.0 [facility] Comment on above: Performed By: #### C BC ####[facility] Edkiafmdcl24[address] [place], [place] [address]Dr. Airam Tripathi Hemoglobin (Bld) [Mass/Vol] 10.7 g/dL Critically low 12.0-16.0 [facility] [place] Comment on above: Performed By: #### C BC ####[facility] Ivdlqarqpk362133 [address] [place], [place] [address]Dr. Airam Tripathi IG # 0.02 10e3/ul Normal 0.00-0.03 [facility] [place] Comment on above: Performed By: #### C BC ####[facility] Gyppuzuavq7498[address] [place], [place] [address]Dr. Airam Tripathi IG % 0.4 % Normal 0.0-0.5 [facility] [place] Comment on above: Performed By: #### C BC ####[facility] Bxpbeydtiv2595 [place] [phone]. Airam Tripathi LYMPH # 1.2 103/ul Normal 1.2-3.8 [facility] [place] Comment on above: Performed By: #### C BC ####[facility] Pzicttttra8347 [place] [phone]. Airam Tripathi Lymphocytes/100 WBC (Bld) 25.0 % Normal 20.5-60.0 [facility] Comment on above: Performed By: #### C BC ####[facility] Kivmbdovtp3429[address] [place], [place] [address]Dr. Airam Tripathi MANUAL DIFF REQ NO Normal [facility] Comment on above: Performed By: #### C BC ####[facility] Kbqpatrogp252[address] [place], [place] [address]Dr. Airam Tripathi MCH (RBC) [Entitic mass] 30.7 pg Normal 26.7-34.0 [facility] Comment on above: Performed By: #### C BC ####[facility] Ddfxjkqzmg812[address] [place], [place] [address]Dr. Airam Tripathi MCHC (RBC) [Mass/Vol] 32.7 g/dL Normal 29.9-35.2 [facility] [place] Comment on above: Performed By: #### C BC ####[facility] [place] Qmnzepvhti5[address] [place], [place] [address]Dr. Airam Tripathi MCV (RBC) [Entitic vol] 93.7 fL Normal 81.0-99.0 [facility] [place] Comment on above: Performed By: #### C BC ####[facility] Xmtdjxcjic7[address] [place], [place] [address]Dr. Airam Tripathi MONO # 0.4 103/ul Normal 0.3-0.8 [facility] [place] Comment on above: Performed By: #### C BC ####[facility] Maginfeyhj[address] [place], [place] [address]Dr. Airam Tripathi Monocytes/100 WBC (Bld) 7.5 % Normal 1.7-12.0 [facility] [place] Comment on above: Performed By: #### C BC ####[facility] Hbemydhpsv4132 [place] [phone]. Airam Tripathi NEUT # 3.1 103/ul Normal 1.4-6.5 [facility] Comment on above: Performed By: #### C BC ####[facility] Bqulvjfxdm4993 [place] [phone]. Airam Tripathi Neutrophils/100 WBC (Bld) 62.8 % Normal 43.0-75.0 [facility] Comment on above: Performed By: #### C BC ####[facility] Hpukuabavs9063 [place] [address]Dr. Airam Tripathi Platelet mean volume (Bld) [Entitic vol] 9.5 fL Normal 9.5-13.5 [facility] Comment on above: Performed By: #### C BC ####[facility] Rcgjwsplso86[address] [place], [place] [address]Dr. Airam Tripathi PLT 250 103/ul Normal 150-450 [facility] Comment on above: Performed By: #### C BC ####[facility] Gxvjlnucxk3943 [place] [address]Dr. Airam Tripathi RBC 3.49 106/ul Critically low 4.20-5.40 [facility] Comment on above: Performed By: #### C BC ####[facility] Yzjzfncepb8330 [place] [address]Dr. Airam Tripathi WBC 4.9 103/ul Normal 4.0-11.0 [facility] Comment on above: Performed By: #### C BC ####[facility] Qiaszzlzan0445 [place] [address]Dr. Airam Tripathi PROF 14(COMP METB)on 022 Albumin [Mass/Vol] 3.3 g/dL Critically low 3.4-5.0 [facility] Comment on above: Performed By: #### C MP ####[facility] Wllposrmsf2487 [place] [address]Dr. Airam Tripathi Albumin/Globulin [Mass ratio] 1.0 {ratio} Normal [facility] Comment on above: Performed By: #### C MP ####[facility] Mdpdltnifg8764 [place] [address]Dr. Airam Tripathi ALP [Catalytic activity/Vol] 127 U/L Critically high 46-116 [facility] Comment on above: Performed By: #### C MP ####[facility] Kfjaqdgxsy9785 [place] [address]Dr. Airam Tripathi ALT [Catalytic activity/Vol] 22 U/L Normal 14-59 [facility] Comment on above: Performed By: #### C MP ####[facility] Jznuhhcyab695[address] [place], [place] [address]Dr. Ariam Tripathi Anion gap [Moles/Vol] 11.9 mmol/L Normal Th e [facility] Comment on above: Performed By: #### C MP ####[facility] Axtpbgzzih5196[address] [place], [place] [address]Dr. Airam Tripathi AST [Catalytic activity/Vol] 21 U/L Normal 15-37 [facility] Comment on above: Performed By: #### C MP ####[facility] Ymcvknmjvo5756[address] [place], [place] [address]Dr. Airam Tripathi Bilirubin [Mass/Vol] 0.3 mg/dL Normal 0.2-1.0 [facility] Comment on above: Performed By: #### C MP ####[facility] Rzxqyopjxc365[address] [place], [place] [address]Dr. Airam Tripathi Calcium [Mass/Vol] 8.6 mg/dL Normal 8.5-10.1 [facility] Comment on above: Performed By: #### C MP ####[facility] Rorakrfphn24[address] [place], [place] [address]Dr. Airam Tripathi Chloride [Moles/Vol] 105 mmol/L Normal 98-107 [facility] Comment on above: Performed By: #### C MP ####[facility] Rmeiypdlqw3075[address] [place], [place] [address]Dr. Airam Tripathi CO2 [Moles/Vol] 23.6 mmol/L Normal 21.0-32.0 [facility] Comment on above: Performed By: #### C MP ####[facility] Zybvrwwmby2798 [place] [phone]. Airam Tripathi Creatinine [Mass/Vol] 1.29 mg/dL Critically high 0.55-1.02 [facility] Comment on above: Performed By: #### C MP ####[facility] Gepkocafct1915 [place] [phone]. Airam Tripathi EGFR-AF PANAMANIAN 51 mL/min/1.73m2 Critically low >=60 [facility] Comment on above: Performed By: #### C MP ####[facility] Fdwkzgdlle1394 [place] [phone]. Airam Tripathi EGFR-NON AF PANAMANIAN 42 mL/min/1.73m2 Critically low >=60 [facility] Comment on above: Performed By: #### C MP ####[facility] Zvdlffzopc9[address] [place], [place] [address]Dr. Airam Tripathi Globulin (S) [Mass/Vol] 3.2 g/dL Normal [facility] Comment on above: Performed By: #### C MP ####[facility] Kxyovokuul7410 [place] [address]Dr. Airam Tripathi Glucose [Mass/Vol] 94 mg/dL Normal 74-106 [facility] Comment on above: Performed By: #### C MP ####[facility] Vpluqjigja5555[address] [place], [place] [address]Dr. Airam Tripathi Potassium [Moles/Vol] 3.5 mmol/L Normal 3.5-5.1 [facility] Comment on above: Performed By: #### C MP ####[facility] Udwanyjajz3345[address] [place], [place] [address]Dr. Airam Tripathi Protein [Mass/Vol] 6.5 g/dL Normal 6.4-8.2 [facility] Comment on above: Performed By: #### C MP ####[facility] Wrgksgomru3034[address] [place], [place] [address]Dr. Airam Tripathi Sodium [Moles/Vol] 137 mmol/L Normal 136-145 [facility] Comment on above: Performed By: #### C MP ####[facility] Wnopwgebqo8269 [place] [phone]. Airam Tripathi Urea nitrogen [Mass/Vol] 37.0 mg/dL Critically high 7.0-18.0 [facility] Comment on above: Performed By: #### C MP ####[facility] Ekxfawxiie2195 [place] [phone]. Airam Tripathi Urea nitrogen/Creatinine [Mass ratio] 28.7 mg/mg Normal [facility] Comment on above: Performed By: #### C MP ####[facility] Nrbjanwbyv5240[address] [place], [place] [address]Dr. Airam Tripathi OSMOLALITYon 02-20-2022 Osmolality [Osmolality] 283 mosm/kg Normal 275-295 [facility] Comment on above: Performed By: #### O SMO ####[facility] Xkairbuebt0858[address] [place], [place] [address]Dr. Airam Tripathi CBC AUTO DIFFon 02-17-2022 BASO # 0.0 103/ul Normal 0.0-0.1 [facility] Comment on above: Performed By: #### C BC ####[facility] Niejczlhqj9238[address] [place], [place] [address]Dr. Airam Tripathi Basophils/100 WBC (Bld) 0.3 % Normal 0.2-2.0 [facility] Comment on above: Performed By: #### C BC ####[facility] Rpwdeebzlv372[address] [place], [place] [address]Dr. Airam Tripathi EO # 0.1 103/ul Normal 0.0-0.7 [facility] Comment on above: Performed By: #### C BC ####[facility] Wkgasvgkss970[address] [place], [place] [address]Dr. Airam Tripathi Eosinophils/100 WBC (Bld) 1.6 % Normal 0.9-7.0 [facility] Comment on above: Performed By: #### C BC ####[facility] Mrjujxbvzx5435[address] [place], [place] [address]Dr. Airam Tripathi Erythrocyte distribution width (RBC) [Ratio] 13.4 % Normal 11.0-15.0 [facility] Comment on above: Performed By: #### C BC ####[facility] Yrphmbrlfz3734 [place] [address]Dr. Airam Tripathi Hematocrit (Bld) [Volume fraction] 31.4 % Critically low 36.0-48.0 [facility] Comment on above: Performed By: #### C BC ####[facility] Btpdbpksjr9866 [place] [address]Dr. Airam Tripathi Hemoglobin (Bld) [Mass/Vol] 10.0 g/dL Critically low 12.0-16.0 [facility] Comment on above: Performed By: #### C BC ####[facility] Cflwoubbth785[address] [place], [place] [address]Dr. Airam Tripathi IG # 0.03 10e3/ul Normal 0.00-0.03 [facility] Comment on above: Performed By: #### C BC ####[facility] Chcavkybzq1936[address] [place], [place] [address]Dr. Selenaneil Tripathi IG % 0.4 % Normal 0.0-0.5 [facility] Comment on above: Performed By: #### C BC ####[facility] Kygavmzteg675[address] [place], [place] [address]Dr. Airam Deuce LYMPH # 1.6 103/ul Normal 1.2-3.8 [facility] Comment on above: Performed By: #### C BC ####[facility] Amuyrrsfti2104[address] [place], [place] [address]DrKianna Selenaneil Tripathi Lymphocytes/100 WBC (Bld) 24.5 % Normal 20.5-60.0 [facility] Comment on above: Performed By: #### C BC ####[facility] Ayiijrpmiv924233 [address] [place], [place] [address]Dr. Selenaneil Tripathi MANUAL DIFF REQ NO Normal [facility] Comment on above: Performed By: #### C BC ####[facility] Xeulvtwhrd2325[address] [place], [place] [address]DrKianna Airam Deuce MCH (RBC) [Entitic mass] 30.2 pg Normal 26.7-34.0 [facility] Comment on above: Performed By: #### C BC ####[facility] Ktnxdnjyqq1355 [place] [phone]. Selenaneil Tripathi MCHC (RBC) [Mass/Vol] 31.8 g/dL Normal 29.9-35.2 [facility] Comment on above: Performed By: #### C BC ####[facility] Ubzmgzucpc6098 [place] [phone]. Airam Tripathi MCV (RBC) [Entitic vol] 94.9 fL Normal 81.0-99.0 [facility] Comment on above: Performed By: #### C BC ####[facility] Cmfvdxjupc4907[address] [place], [place] [address]Dr. Airam Tripathi MONO # 0.4 103/ul Normal 0.3-0.8 [facility] Comment on above: Performed By: #### C BC ####[facility] Oryqjlqizu4613[address] [place], [place] [address]Dr. Airam Tripathi Monocytes/100 WBC (Bld) 5.8 % Normal 1.7-12.0 [facility] Comment on above: Performed By: #### C BC ####[facility] Zrnimylmhd8986[address] [place], [place] [address]Dr. Airam Tripathi NEUT # 4.5 103/ul Normal 1.4-6.5 [facility] Comment on above: Performed By: #### C BC ####[facility] Xmcjgelcsd8808[address] [place], [place] [address]Dr. Airam Tripathi Neutrophils/100 WBC (Bld) 67.4 % Normal 43.0-75.0 [facility] Comment on above: Performed By: #### C BC ####[facility] Thhbidoelc8636[address] [place], [place] [address]Dr. Airam Tripathi Platelet mean volume (Bld) [Entitic vol] 9.6 fL Normal 9.5-13.5 [facility] Comment on above: Performed By: #### C BC ####[facility] Jlxejwejrm8706[address] [place], [place] [address]Dr. Airam Tripathi PLT 251 103/ul Normal 150-450 [facility] Comment on above: Performed By: #### C BC ####[facility] Dpchnnkrgj1322 [place] [address]Dr. Selenaneil Deuce RBC 3.31 106/ul Critically low 4.20-5.40 [facility] Comment on above: Performed By: #### C BC ####[facility] Crsjcajtkx2473 [place] [phone]. Airam Tripathi WBC 6.7 103/ul Normal 4.0-11.0 [facility] Comment on above: Performed By: #### C BC ####[facility] Cscabpedxq0404 [place] [address]Dr. Airam Tripathi PROF 14(COMP METB)on 022 Albumin [Mass/Vol] 3.5 g/dL Normal 3.4-5.0 [facility] Comment on above: Performed By: #### C MP ####[facility] Qgtsjejdhk73[address] [place], [place] [address]Dr. Airam Tripathi Albumin/Globulin [Mass ratio] 1.2 {ratio} Normal [facility] Comment on above: Performed By: #### C MP ####[facility] Owzdcpupoy05[address] [place], [place] [address]Dr. Airam Tripathi ALP [Catalytic activity/Vol] 130 U/L Critically high 46-116 [facility] Comment on above: Performed By: #### C MP ####[facility] Kbjnyevbyu[address] [place], [place] [address]Dr. Airam Tripathi ALT [Catalytic activity/Vol] 18 U/L Normal 14-59 [facility] Comment on above: Performed By: #### C MP ####[facility] Yqbgnegprf37[address] [place] [address]Dr. Airam Tripathi Anion gap [Moles/Vol] 14.0 mmol/L Normal [facility] Comment on above: Performed By: #### C MP ####[facility] Mrwfyjhjiu5[address] [place] [address]Dr. Airam Tripathi AST [Catalytic activity/Vol] 20 U/L Normal 15-37 [facility] Comment on above: Performed By: #### C MP ####[facility] Bdugtslqib3[address] [place] [id number]. Airam Tripathi Bilirubin [Mass/Vol] 0.3 mg/dL Normal 0.2-1.0 [facility] Comment on above: Performed By: #### C MP ####[facility] Wppbrxgjgn4224 [place] [id number]. Airam Tripathi Calcium [Mass/Vol] 8.5 mg/dL Normal 8.5-10.1 [facility] Comment on above: Performed By: #### C MP ####[facility] Dhuhvvthuz2[address] [place], [place] [id number]. Airam Tripathi Chloride [Moles/Vol] 100 mmol/L Normal 98-107 [facility] Comment on above: Performed By: #### C MP ####[facility] Ikfxefwbug648[address] [place], [place] [address]Dr. Airam Tripathi CO2 [Moles/Vol] 22.7 mmol/L Normal 21.0-32.0 [facility] Comment on above: Performed By: #### C MP ####[facility] Zasxksaylz9[address] [place], [place] [address]Dr. Airam Tripathi Creatinine [Mass/Vol] 1.28 mg/dL Critically high 0.55-1.02 [facility] Comment on above: Performed By: #### C MP ####[facility] Yaxzdjilic89[address] [place], [place] [address]Dr. Airam Tripathi EGFR-AF PANAMANIAN 52 mL/min/1.73m2 Critically low >=60 [facility] Comment on above: Performed By: #### C MP ####[facility] Ahhqnehrsv[address] [place], [place] [address]Dr. Airam Tripathi EGFR-NON AF PANAMANIAN 43 mL/min/1.73m2 Critically low >=60 [facility] Comment on above: Performed By: #### C MP ####[facility] Kffdihzyyc[address] [place], [place] [address]Dr. Airam Tripathi Globulin (S) [Mass/Vol] 2.9 g/dL Normal [facility] Comment on above: Performed By: #### C MP ####[facility] Qrpicnmlxt8689 [place] [phone]. Airam Tripathi Glucose [Mass/Vol] 93 mg/dL Normal 74-106 [facility] Comment on above: Performed By: #### C MP ####[facility] Amavfegmsk1068 [place] [phone]. Airam Tripathi Potassium [Moles/Vol] 3.7 mmol/L Normal 3.5-5.1 [facility] Comment on above: Performed By: #### C MP ####[facility] Vmyznazuix6445 [place] [phone]. Airam Tripathi Protein [Mass/Vol] 6.4 g/dL Normal 6.4-8.2 [facility] Comment on above: Performed By: #### C MP ####[facility] Ycrzenmwam2676 [place] [address]Dr. Airam Tripathi Sodium [Moles/Vol] 133 mmol/L Critically low 136-145 [facility] Comment on above: Performed By: #### C MP ####[facility] Qgxcibjhur4399 [place] [address]Dr. Airam Tripathi Urea nitrogen [Mass/Vol] 44.0 mg/dL Critically high 7.0-18.0 [facility] Comment on above: Performed By: #### C MP ####[facility] Jiresbztjp110[address] [place], [place] [address]Dr. Airam Tripathi Urea nitrogen/Creatinine [Mass ratio] 34.4 mg/mg Normal [facility] Comment on above: Performed By: #### C MP ####[facility] Rkkinlyfoq0462 [place] [address]Dr. Airam Tripathi OSMOLALITYon 02-10-2022 Osmolality [Osmolality] 288 mosm/kg Normal 275-295 [facility] Comment on above: Performed By: #### O SMO ####[facility] Buthosiqhn3210[address] [place], [place] [address]Dr. Airam Tripathi CBC AUTO DIFFon 02-08-2022 BASO # 0.0 103/ul Normal 0.0-0.1 [facility] Comment on above: Performed By: #### C BC ####[facility] Tpeyudsacj4769 [place] [phone]. Airam Tripathi Basophils/100 WBC (Bld) 0.3 % Normal 0.2-2.0 [facility] Comment on above: Performed By: #### C BC ####[facility] Vmydilihgj60[address] [place], [place] [address]Dr. Airam Tripathi EO # 0.2 103/ul Normal 0.0-0.7 [facility] Comment on above: Performed By: #### C BC ####[facility] Okvaodiofd[address] [place], [place] [address]Dr. Airam Tripathi Eosinophils/100 WBC (Bld) 2.1 % Normal 0.9-7.0 [facility] Comment on above: Performed By: #### C BC ####[facility] Rrpshifgco4865[address] [place], [place] [address]Dr. Airam Tripathi Erythrocyte distribution width (RBC) [Ratio] 13.4 % Normal 11.0-15.0 [facility] Comment on above: Performed By: #### C BC ####[facility] Ixxknjlyxg7[address] [place], [place] [address]Dr. Airam Tripathi Hematocrit (Bld) [Volume fraction] 35.1 % Critically low 36.0-48.0 [facility] Comment on above: Performed By: #### C BC ####[facility] Ftnosjhdxx16[address] [place], [place] [address]Dr. Airam Tripathi Hemoglobin (Bld) [Mass/Vol] 10.9 g/dL Critically low 12.0-16.0 [facility] Comment on above: Performed By: #### C BC ####[facility] Tmfmzbxedl09[address] [place], [place] [address]Dr. Airam Tripathi IG # 0.03 10e3/ul Normal 0.00-0.03 [facility] Comment on above: Performed By: #### C BC ####[facility] Hcssaffstc2[address] [place], [place] [address]Dr. Airam Tripathi IG % 0.3 % Normal 0.0-0.5 [facility] Comment on above: Performed By: #### C BC ####[facility] Uwjggxtkdq7615 [place] [phone]. Airam Tripathi LYMPH # 1.3 103/ul Normal 1.2-3.8 [facility] Comment on above: Performed By: #### C BC ####[facility] Hfqxutblag0724 [place] [phone]. Airam Tripathi Lymphocytes/100 WBC (Bld) 13.1 % Critically low 20.5-60.0 [facility] Comment on above: Performed By: #### C BC ####[facility] Ovyvzjxvqq16[address] [place] [address]Dr. Airam Tripathi MANUAL DIFF REQ NO Normal [facility] Comment on above: Performed By: #### C BC ####[facility] Vvjklmrqcp0187 [place] [address]Dr. Airam Tripathi MCH (RBC) [Entitic mass] 30.4 pg Normal 26.7-34.0 [facility] Comment on above: Performed By: #### C BC ####[facility] Fjmqbnisiq5251 [place] [phone]. Airam Tripathi MCHC (RBC) [Mass/Vol] 31.1 g/dL Normal 29.9-35.2 [facility] Comment on above: Performed By: #### C BC ####[facility] Jjukjnouxt6803 [place] [phone]. Airam Tripathi MCV (RBC) [Entitic vol] 98.0 fL Normal 81.0-99.0 [facility] Comment on above: Performed By: #### C BC ####[facility] Ofclnnnqra5274 [place] [phone]. Airam Tripathi MONO # 0.5 103/ul Normal 0.3-0.8 [facility] Comment on above: Performed By: #### C BC ####[facility] Ivolzsubuk3369 [place] [phone]. Airam Tripathi Monocytes/100 WBC (Bld) 4.7 % Normal 1.7-12.0 [facility] Comment on above: Performed By: #### C BC ####[facility] Ppjywiglif6529 [place] [phone]. Airam Tripathi NEUT # 7.7 103/ul Critically high 1.4-6.5 [facility] Comment on above: Performed By: #### C BC ####[facility] Npnstfbbvt1574 [place] [phone]. Airam Deuce Neutrophils/100 WBC (Bld) 79.5 % Critically high 43.0-75.0 [facility] Comment on above: Performed By: #### C BC ####[facility] Igquzjwbap0103 [place] [phone]. Selenaneil Deuce Platelet mean volume (Bld) [Entitic vol] 9.6 fL Normal 9.5-13.5 [facility] Comment on above: Performed By: #### C BC ####[facility] Blnxrscxwm4067 [place] [address]Dr. Airam Tripathi PLT 268 103/ul Normal 150-450 [facility] Comment on above: Performed By: #### C BC ####[facility] Brlduiejqz1858 [place] [phone]. Airam Deuce RBC 3.58 106/ul Critically low 4.20-5.40 [facility] Comment on above: Performed By: #### C BC ####[facility] Btblcvuxvu0667 [place] [phone]. Selenaneil Deuce WBC 9.7 103/ul Normal 4.0-11.0 [facility] Comment on above: Performed By: #### C BC ####[facility] Zviirdodnc4503 [place] [phone] Tripathi PROF 14(COMP METB)on 022 Albumin [Mass/Vol] 3.6 g/dL Normal 3.4-5.0 [facility] Comment on above: Performed By: #### C MP ####[facility] Zltfkdhtsb4454 [place] [phone] Tripathi Albumin/Globulin [Mass ratio] 1.1 {ratio} Normal [facility] Comment on above: Performed By: #### C MP ####[facility] Wmuernwzam57[address] [place] [address]Dr. Airam Tripathi ALP [Catalytic activity/Vol] 131 U/L Critically high 46-116 [facility] Comment on above: Performed By: #### C MP ####[facility] Geiwzhiqhi8343 [place] [address]Dr. Airam Tripathi ALT [Catalytic activity/Vol] 22 U/L Normal 14-59 [facility] Comment on above: Performed By: #### C MP ####[facility] Ygszypfroy4259 [place] [address]Dr. Airam Tripathi Anion gap [Moles/Vol] 13.3 mmol/L Normal Th e [facility] Comment on above: Performed By: #### C MP ####[facility] Gqsijeqqcz[address] [place], [place] [address]Dr. Airam Tripathi AST [Catalytic activity/Vol] 23 U/L Normal 15-37 [facility] Comment on above: Performed By: #### C MP ####[facility] Seftxgvdcd5[address] [place], [place] [address]Dr. Airam Tripathi Bilirubin [Mass/Vol] 0.3 mg/dL Normal 0.2-1.0 [facility] Comment on above: Performed By: #### C MP ####[facility] Xyosciorvy6480[address] [place], [place] [address]Dr. Airam Tripathi Calcium [Mass/Vol] 8.7 mg/dL Normal 8.5-10.1 [facility] Comment on above: Performed By: #### C MP ####[facility] Avigyxbnaf5016[address] [place], [place] [address]Dr. Airam Deuce Chloride [Moles/Vol] 104 mmol/L Normal 98-107 [facility] Comment on above: Performed By: #### C MP ####[facility] Bsrygbkbia8578 [place] [address]Dr. Airam Deuce CO2 [Moles/Vol] 22.0 mmol/L Normal 21.0-32.0 [facility] Comment on above: Performed By: #### C MP ####[facility] Dpywdlgjyc4568 [place] [address]Dr. Airam Tripathi Creatinine [Mass/Vol] 1.20 mg/dL Critically high 0.55-1.02 [facility] Comment on above: Performed By: #### C MP ####[facility] Vizzegzcdd5257 [place] [address]Dr. Airam Tripathi EGFR-AF PANAMANIAN 56 mL/min/1.73m2 Critically low >=60 [facility] Comment on above: Performed By: #### C MP ####[facility] Wugxnzvghj9745 [place] [address]Dr. Airam Tripathi EGFR-NON AF PANAMANIAN 46 mL/min/1.73m2 Critically low >=60 [facility] Comment on above: Performed By: #### C MP ####[facility] Licgrnwkao6954[address] [place], [place] [address]Dr. Airam Tripathi Globulin (S) [Mass/Vol] 3.2 g/dL Normal [facility] Comment on above: Performed By: #### C MP ####[facility] Jdjveelssg1644 [place] [address]Dr. Airam Tripathi Glucose [Mass/Vol] 98 mg/dL Normal 74-106 [facility] Comment on above: Performed By: #### C MP ####[facility] Qbiagmuika9955[address] [place], [place] [address]Dr. Airam Tripathi Potassium [Moles/Vol] 4.3 mmol/L Normal 3.5-5.1 [facility] Comment on above: Performed By: #### C MP ####[facility] Emjkzzehku6701[address] [place], [place] [address]Dr. Airam Tripathi Protein [Mass/Vol] 6.8 g/dL Normal 6.4-8.2 [facility] Comment on above: Performed By: #### C MP ####[facility] Tuvfuzicmd6121 [place] [address]Dr. Airam Tripathi Sodium [Moles/Vol] 135 mmol/L Critically low 136-145 [facility] Comment on above: Performed By: #### C MP ####[facility] Tjuquihuqn7380 [place] [address]Dr. Airam Tripathi Urea nitrogen [Mass/Vol] 33.0 mg/dL Critically high 7.0-18.0 [facility] Comment on above: Performed By: #### C MP ####[facility] Yjuugxljfz8988[address] [place], [place] [address]Dr. Airam Tripathi Urea nitrogen/Creatinine [Mass ratio] 27.5 mg/mg Normal [facility] Comment on above: Performed By: #### C MP ####[facility] Xuivlstlmb2616[address] [place], [place] [address]Dr. Airam Tripathi OSMOLALITYon 02-07-2022 Osmolality [Osmolality] 299 mosm/kg Critically high 275-295 [facility] Comment on above: Performed By: #### O SMO ####[facility] Emwiercxek4230[address] [place], [place] [address]Dr. Airam Tripathi CBC AUTO DIFFon 02-03-2022 BASO # 0.0 103/ul Normal 0.0-0.1 [facility] Comment on above: Performed By: #### C BC ####[facility] Msvotmnrix7588[address] [place], [place] [address]Dr. Airam Tripathi Basophils/100 WBC (Bld) 0.4 % Normal 0.2-2.0 [facility] Comment on above: Performed By: #### C BC ####[facility] Cwuvjktdnq6985[address] [place], [place] [address]Dr. Airam Tripathi EO # 0.3 103/ul Normal 0.0-0.7 [facility] Comment on above: Performed By: #### C BC ####[facility] Vbyyvdnnnv3675[address] [place], [place] [address]Dr. Airam Tripathi Eosinophils/100 WBC (Bld) 3.6 % Normal 0.9-7.0 [facility] Comment on above: Performed By: #### C BC ####[facility] Mzjzidejdc0424[address] [place], [place] [address]Dr. Airam Tripathi Erythrocyte distribution width (RBC) [Ratio] 13.2 % Normal 11.0-15.0 [facility] Comment on above: Performed By: #### C BC ####[facility] Atobkbfvyv4413 [place] [address]DrKianna Airam Tripathi Hematocrit (Bld) [Volume fraction] 32.0 % Critically low 36.0-48.0 [facility] Comment on above: Performed By: #### C BC ####[facility] Xmrkefuash0743 [place] [address]DrKianna Tripathi Hemoglobin (Bld) [Mass/Vol] 9.8 g/dL Critically low 12.0-16.0 [facility] Comment on above: Performed By: #### C BC ####[facility] Bwucvmrumj4889[address] [place], [place] [address]DrKianna Tripathi IG # 0.03 10e3/ul Normal 0.00-0.03 [facility] Comment on above: Performed By: #### C BC ####[facility] Aisynontzc1049[address] [place], [place] [address]DrKianna Tripathi IG % 0.4 % Normal 0.0-0.5 [facility] Comment on above: Performed By: #### C BC ####[facility] Abpxncylum8732[address] [place], [place] [address]DrKianna Tripathi LYMPH # 1.7 103/ul Normal 1.2-3.8 [facility] Comment on above: Performed By: #### C BC ####[facility] Qyizmargqj3399[address] [place], [place] [address]DrKianna Tripathi Lymphocytes/100 WBC (Bld) 24.8 % Normal 20.5-60.0 [facility] Comment on above: Performed By: #### C BC ####[facility] Bxnjaoebsd8980[address] [place], [place] [address]DrKianna Tripathi MANUAL DIFF REQ NO Normal [facility] Comment on above: Performed By: #### C BC ####[facility] Cwhpksujyk6549[address] [place], [place] [address]DrKianna Tripathi MCH (RBC) [Entitic mass] 29.6 pg Normal 26.7-34.0 [facility] Comment on above: Performed By: #### C BC ####[facility] Zwxhwrehll3318 [place] [phone]. Airam Deuce MCHC (RBC) [Mass/Vol] 30.6 g/dL Normal 29.9-35.2 [facility] Comment on above: Performed By: #### C BC ####[facility] Hvlbovgdwe9539 [place] [phone] Tripathi MCV (RBC) [Entitic vol] 96.7 fL Normal 81.0-99.0 [facility] Comment on above: Performed By: #### C BC ####[facility] Fblebclvpt1639[address] [place], [place] [address]DrKianna Tripathi MONO # 0.4 103/ul Normal 0.3-0.8 [facility] Comment on above: Performed By: #### C BC ####[facility] Wxaaxjczmv745[address] [place], [place] [address]Dr. Airam Tripathi Monocytes/100 WBC (Bld) 6.3 % Normal 1.7-12.0 [facility] Comment on above: Performed By: #### C BC ####[facility] Dduixqutoq260[address] [place], [place] [address]DrKianna Tripathi NEUT # 4.5 103/ul Normal 1.4-6.5 [facility] Comment on above: Performed By: #### C BC ####[facility] Crawkwxrqt2639[address] [place], [place] [address]DrKianna Tripathi Neutrophils/100 WBC (Bld) 64.5 % Normal 43.0-75.0 [facility] Comment on above: Performed By: #### C BC ####[facility] Cpopfxgizx[address] [place], [place] [id number] Tripathi Platelet mean volume (Bld) [Entitic vol] 9.3 fL Critically low 9.5-13.5 [facility] Comment on above: Performed By: #### C BC ####[facility] Sksmgokkrt[address] [place], [place] [address]DrKianna Tripathi PLT 243 103/ul Normal 150-450 [facility] Comment on above: Performed By: #### C BC ####[facility] Tkxfancggi7878 [place] [phone]. Airam Tripathi RBC 3.31 106/ul Critically low 4.20-5.40 [facility] Comment on above: Performed By: #### C BC ####[facility] Qzjunorlsd4082 [place] [phone]. Airam Tripathi WBC 7.0 103/ul Normal 4.0-11.0 [facility] Comment on above: Performed By: #### C BC ####[facility] Rllcsjovct9971 [place] [address]Dr. Airam Tripathi PROF 14(COMP METB)on 022 Albumin [Mass/Vol] 3.3 g/dL Critically low 3.4-5.0 [facility] Comment on above: Performed By: #### C MP ####[facility] Kdkqcugblb4654 [place] [address]Dr. Airam Tripathi Albumin/Globulin [Mass ratio] 1.1 {ratio} Normal [facility] Comment on above: Performed By: #### C MP ####[facility] Uiznukpltp5[address] [place], [place] [address]Dr. Airam Tripathi ALP [Catalytic activity/Vol] 126 U/L Critically high 46-116 [facility] Comment on above: Performed By: #### C MP ####[facility] Kcdgcdeonw2773 [place] [address]Dr. Airam Tripathi ALT [Catalytic activity/Vol] 21 U/L Normal 14-59 [facility] Comment on above: Performed By: #### C MP ####[facility] Zdfhqvocox5714 [place] [phone]. Airam Tripathi Anion gap [Moles/Vol] 11.8 mmol/L Normal [facility] Comment on above: Performed By: #### C MP ####[facility] Lmhakupvht6411 [place] [address]Dr. Airam Tripathi AST [Catalytic activity/Vol] 22 U/L Normal 15-37 [facility] Comment on above: Performed By: #### C MP ####[facility] Fbvvmuunpd1989 [place] [address]Dr. Airam Tripathi Bilirubin [Mass/Vol] 0.3 mg/dL Normal 0.2-1.0 [facility] Comment on above: Performed By: #### C MP ####[facility] Hxrzvxorfa9655 [place] [address]Dr. Airam Tripathi Calcium [Mass/Vol] 8.7 mg/dL Normal 8.5-10.1 [facility] Comment on above: Performed By: #### C MP ####[facility] Yycdovbulz954[address] [place], [place] [address]Dr. iAram Tripathi Chloride [Moles/Vol] 102 mmol/L Normal 98-107 [facility] Comment on above: Performed By: #### C MP ####[facility] Qjkkdeujdp75[address] [place], [place] [address]Dr. Airam Tripathi CO2 [Moles/Vol] 25.5 mmol/L Normal 21.0-32.0 [facility] Comment on above: Performed By: #### C MP ####[facility] Wasnnqkxti9659[address] [place], [place] [address]Dr. Airam Tripathi Creatinine [Mass/Vol] 1.43 mg/dL Critically high 0.55-1.02 [facility] Comment on above: Performed By: #### C MP ####[facility] Wkuuikajfu57[address] [place], [place] [address]Dr. Airam Tripathi EGFR-AF PANAMANIAN 46 mL/min/1.73m2 Critically low >=60 [facility] Comment on above: Performed By: #### C MP ####[facility] Fvasmpodqq379[address] [place], [place] [address]Dr. Airam Deuce EGFR-NON AF PANAMANIAN 38 mL/min/1.73m2 Critically low >=60 [facility] Comment on above: Performed By: #### C MP ####[facility] Gmxorffyzz4311[address] [place], [place] [address]Dr. Airam Deuce Globulin (S) [Mass/Vol] 2.9 g/dL Normal [facility] Comment on above: Performed By: #### C MP ####[facility] Aaydmhcsdj4574 [place] [address]Dr. Airam Tripathi Glucose [Mass/Vol] 83 mg/dL Normal 74-106 [facility] Comment on above: Performed By: #### C MP ####[facility] Jjtnlqeayv6802 [place] [address]Dr. Airam Tripathi Potassium [Moles/Vol] 4.3 mmol/L Normal 3.5-5.1 [facility] Comment on above: Performed By: #### C MP ####[facility] Uvyzaybgms3901 [place] [address]Dr. Airam Tripathi Protein [Mass/Vol] 6.2 g/dL Critically low 6.4-8.2 [facility] Comment on above: Performed By: #### C MP ####[facility] Jbtyygnbiy[address] [place], [place] [address]Dr. Airam Tripathi Sodium [Moles/Vol] 135 mmol/L Critically low 136-145 Th [facility] Comment on above: Performed By: #### C MP ####[facility] Hinuhafzmo34[address] [place], [place] [address]Dr. Airam Tripathi Urea nitrogen [Mass/Vol] 39.0 mg/dL Critically high 7.0-18.0 [facility] Comment on above: Performed By: #### C MP ####[facility] Rdvjjpjnsk35[address] [place], [place] [address]Dr. Airam Tripathi Urea nitrogen/Creatinine [Mass ratio] 27.3 mg/mg Normal [facility] [facility] Comment on above: Performed By: #### C MP ####[facility] Bcchwpommr[address] [place], [place] [address]Dr. Airam Deuce OSMOLALITYon 02-02-2022 Osmolality [Osmolality] 292 mosm/kg Normal 275-295 [facility] Comment on above: Performed By: #### O SMO ####[facility] Npvhervgfu[address] [place], [place] [address]Dr. Airam Deuce CBC AUTO DIFFon 01-27-2022 BASO # 0.0 103/ul Normal 0.0-0.1 [facility] Comment on above: Performed By: #### C BC ####[facility] [address] [place] [address]Dr. Airam Tripathi Basophils/100 WBC (Bld) 0.4 % Normal 0.2-2.0 [facility] Comment on above: Performed By: #### C BC ####[facility] Dfkilcjmtc228[address] [place], [place] [address]Dr. Airam Tripathi EO # 0.2 103/ul Normal 0.0-0.7 [facility] Comment on above: Performed By: #### C BC ####[facility] Pmckqddwkk7[address] [place], [place] [address]Dr. Airam Tripathi Eosinophils/100 WBC (Bld) 3.4 % Normal 0.9-7.0 [facility] Comment on above: Performed By: #### C BC ####[facility] Goefdlsbsl1490[address] [place], [place] [address]Dr. Airam Tripathi Erythrocyte distribution width (RBC) [Ratio] 13.1 % Normal 11.0-15.0 [facility] Comment on above: Performed By: #### C BC ####[facility] Bvkomexpcx994[address] [place], [place] [address]Dr. Airam Tripathi Hematocrit (Bld) [Volume fraction] 31.6 % Critically low 36.0-48.0 [facility] Comment on above: Performed By: #### C BC ####[facility] Lfisizydco4[address] [place], [place] [address]Dr. Airam Tripathi Hemoglobin (Bld) [Mass/Vol] 9.9 g/dL Critically low 12.0-16.0 [facility] Comment on above: Performed By: #### C BC ####[facility] Ujciyoqena[address] [place], [place] [address]Dr. Airam Tripathi IG # 0.02 10e3/ul Normal 0.00-0.03 [facility] Comment on above: Performed By: #### C BC ####[facility] Kmijbsrxsh4266[address] [place], [place] [address]Dr. Selenaneil Tripathi IG % 0.4 % Normal 0.0-0.5 [facility] Comment on above: Performed By: #### C BC ####[facility] [address]xflfnxkce[address] [place] [address]Dr. Airam Deuce LYMPH # 1.0 103/ul Critically low 1.2-3.8 [facility] Comment on above: Performed By: #### C BC ####[facility] Kvdfykqiaj9[address] [place] [address]Dr. Airam Deuce Lymphocytes/100 WBC (Bld) 17.4 % Critically low 20.5-60.0 [facility] Comment on above: Performed By: #### C BC ####[facility] Vmigkblrwa3937[address] [place], [place] [address]Dr. Selenaneil Tripathi MANUAL DIFF REQ NO Normal [facility] Comment on above: Performed By: #### C BC ####[facility] Agbahbsxwk6880[address] [place], [place] [address]Dr. Airam Deuce MCH (RBC) [Entitic mass] 30.1 pg Normal 26.7-34.0 [facility] Comment on above: Performed By: #### C BC ####[facility] Grfpupraxw893[address] [place], [place] [address]Dr. Airam Tripathi MCHC (RBC) [Mass/Vol] 31.3 g/dL Normal 29.9-35.2 [facility] Comment on above: Performed By: #### C BC ####[facility] Zcruizhhaj3345[address] [place], [place] [address]Dr. Airam Tripathi MCV (RBC) [Entitic vol] 96.0 fL Normal 81.0-99.0 [facility] Comment on above: Performed By: #### C BC ####[facility] Rqoqzyqjew9[address] [place], [place] [address]DrKianna Tripathi MONO # 0.5 103/ul Normal 0.3-0.8 [facility] Comment on above: Performed By: #### C BC ####[facility] Dxksgaedce6108[address] [place], [place] [address]Dr. Airam Tripathi Monocytes/100 WBC (Bld) 8.6 % Normal 1.7-12.0 [facility] Comment on above: Performed By: #### C BC ####[facility] N[address]fmblzzjk63[address] [place] [address]Dr. Airam Tripathi NEUT # 3.9 103/ul Normal 1.4-6.5 [facility] Comment on above: Performed By: #### C BC ####[facility] Rawcbsosgb[address] [place] [address]Dr. Airam Tripathi Neutrophils/100 WBC (Bld) 69.8 % Normal 43.0-75.0 [facility] Comment on above: Performed By: #### C BC ####[facility] V[address]ktkeszc[address] [place] [address]Dr. Airam Tripathi Platelet mean volume (Bld) [Entitic vol] 9.6 fL Normal 9.5-13.5 [facility] Comment on above: Performed By: #### C BC ####[facility] Llymwssqwd77[address] [place], [place] [address]Dr. Airam Tripathi PLT 228 103/ul Normal 150-450 [facility] Comment on above: Performed By: #### C BC ####[facility] Dtjennduwn6215[address] [place], [place] [address]Dr. Airam Tripathi RBC 3.29 106/ul Critically low 4.20-5.40 [facility] Comment on above: Performed By: #### C BC ####[facility] [address]bvzvlg[address] [place] [address]Dr. Airam Tripathi WBC 5.6 103/ul Normal 4.0-11.0 [facility] Comment on above: Performed By: #### C BC ####[facility] Maizbwgpbd9[address] [place] [address]DrKianna Tripathi PROF 14(COMP METB)on 022 Albumin [Mass/Vol] 3.1 g/dL Critically low 3.4-5.0 [facility] Comment on above: Performed By: #### C MP ####[facility] Xgroneepfy[address] [place] [address]DrKianna Tripathi Albumin/Globulin [Mass ratio] 1.0 {ratio} Normal [facility] Comment on above: Performed By: #### C MP ####[facility] Epszdkipgc[address] [place] [address]Dr. Airam Tripathi ALP [Catalytic activity/Vol] 131 U/L Critically high 46-116 [facility] Comment on above: Performed By: #### C MP ####[facility] Rgcvcsuxnq0887 [place] [address]Dr. Airam Deuce ALT [Catalytic activity/Vol] 19 U/L Normal 14-59 [facility] Comment on above: Performed By: #### C MP ####[facility] Hzkahyblzz0965[address] [place], [place] [address]Dr. Airam Tripathi Anion gap [Moles/Vol] 12.9 mmol/L Normal [facility] Comment on above: Performed By: #### C MP ####[facility] Hfankqzaob713[address] [place], [place] [address]Dr. Selenaneil Tripathi AST [Catalytic activity/Vol] 21 U/L Normal 15-37 [facility] Comment on above: Performed By: #### C MP ####[facility] Hetprfkxhl315[address] [place], [place] [address]Dr. Selenaneil Deuce Bilirubin [Mass/Vol] 0.2 mg/dL Normal 0.2-1.0 [facility] Comment on above: Performed By: #### C MP ####[facility] Qyxygbdxts4739[address] [place], [place] [address]Dr. Airam Tripathi Calcium [Mass/Vol] 8.4 mg/dL Critically low 8.5-10.1 [facility] Comment on above: Performed By: #### C MP ####[facility] Pfydabcobl50[address] [place], [place] [address]Dr. Airam Tripathi Chloride [Moles/Vol] 103 mmol/L Normal 98-107 [facility] Comment on above: Performed By: #### C MP ####[facility] Cyrsgjgbso199[address] [place], [place] [address]Dr. Airam Tripathi CO2 [Moles/Vol] 23.7 mmol/L Normal 21.0-32.0 [facility] Comment on above: Performed By: #### C MP ####[facility] Jrkbuovgme04[address] [place] [id number]. Airam Tripathi Creatinine [Mass/Vol] 1.37 mg/dL Critically high 0.55-1.02 [facility] Comment on above: Performed By: #### C MP ####[facility] Bpulccgmhc23[address] [place] [id number]. Airam Deuce EGFR-AF PANAMANIAN 48 mL/min/1.73m2 Critically low >=60 [facility] Comment on above: Performed By: #### C MP ####[facility] Ihynrnkfox450[address] [place] [id number]. Airam Deuce EGFR-NON AF PANAMANIAN 39 mL/min/1.73m2 Critically low >=60 [facility] Comment on above: Performed By: #### C MP ####[facility] Faustinjpf[address] [place] [address]Dr. Airam Deuce Globulin (S) [Mass/Vol] 3.1 g/dL Normal [facility] Comment on above: Performed By: #### C MP ####[facility] Bsedgwplfo350[address] [place] [address]Dr. Airam Tripathi Glucose [Mass/Vol] 88 mg/dL Normal 74-106 [facility] Comment on above: Performed By: #### C MP ####[facility] Skpvkjobsa9725 [place] [address]Dr. Airam Deuce Potassium [Moles/Vol] 4.6 mmol/L Normal 3.5-5.1 [facility] Comment on above: Performed By: #### C MP ####[facility] Wlitqzbkrj3478 [place] [id number]. Airam Deuce Protein [Mass/Vol] 6.2 g/dL Critically low 6.4-8.2 [facility] Comment on above: Performed By: #### C MP ####[facility] Vx[address]ymfxa8387 [place] [id number]. Selenaneil Tripathi Sodium [Moles/Vol] 135 mmol/L Critically low 136-145 Th e [facility] Comment on above: Performed By: #### C MP ####[facility] Lbfdnryooo3139[address] [place], [place] [address]Dr. Airam Tripathi Urea nitrogen [Mass/Vol] 34.0 mg/dL Critically high 7.0-18.0 [facility] Comment on above: Performed By: #### C MP ####[facility] Ecmwijkyqe4748[address] [place], [place] [address]Dr. Airam Deuce Urea nitrogen/Creatinine [Mass ratio] 24.8 mg/mg Normal [facility] Comment on above: Performed By: #### C MP ####[facility] Blwhhghjcw135[address] [place], [place] [address]Dr. Airam Deuce OSMOLALITYon 01-21-2022 Osmolality [Osmolality] 276 mosm/kg Normal 275-295 [facility] Comment on above: Performed By: #### O SMO ####[facility] Uwuvnnsikx2686[address] [place], [place] [address]Dr. Airam Tripathi MRI CSPINE WO CONon 01-21-20 22 MRI CSPINE WO CON Normal [facility] CBC AUTO DIFFon 01-19-2022 BASO # 0.0 103/ul Normal 0.0-0.1 [facility] Comment on above: Performed By: #### C BC ####[facility] Ycsplmedws2837[address] [place], [place] [address]Dr. Airam Tripathi Basophils/100 WBC (Bld) 0.2 % Normal 0.2-2.0 [facility] Comment on above: Performed By: #### C BC ####[facility] Anzrxtplai1884[address] [place], [place] [address]Dr. Selenaneil Deuce EO # 0.2 103/ul Normal 0.0-0.7 [facility] Comment on above: Performed By: #### C BC ####[facility] Rcoyyrhkpw7970[address] [place], [place] [address]Dr. Airam Deuce Eosinophils/100 WBC (Bld) 2.1 % Normal 0.9-7.0 [facility] Comment on above: Performed By: #### C BC ####[facility] Ulmnsarnys3068[address] [place], [place] [address]Dr. Airam Tripathi Erythrocyte distribution width (RBC) [Ratio] 12.7 % Normal 11.0-15.0 [facility] Comment on above: Performed By: #### C BC ####[facility] Txkavaytvh8858[address] [place], [place] [address]Dr. Airam Tripathi Hematocrit (Bld) [Volume fraction] 32.2 % Critically low 36.0-48.0 [facility] Comment on above: Performed By: #### C BC ####[facility] Fctgcyirwr67[address] [place], [place] [address]Dr. Airam Tripathi Hemoglobin (Bld) [Mass/Vol] 10.4 g/dL Critically low 12.0-16.0 [facility] Comment on above: Performed By: #### C BC ####[facility] Xnurcaxlko9394[address] [place], [place] [address]Dr. Airam Tripathi IG # 0.03 10e3/ul Normal 0.00-0.03 [facility] Comment on above: Performed By: #### C BC ####[facility] Nmhthivseg3955[address] [place], [place] [address]Dr. Selenaneil Tripathi IG % 0.3 % Normal 0.0-0.5 [facility] Comment on above: Performed By: #### C BC ####[facility] Oxdaryzuqx7098[address] [place], [place] [address]Dr. Airam Tripathi LYMPH # 1.4 103/ul Normal 1.2-3.8 [facility] Comment on above: Performed By: #### C BC ####[facility] Hhvnkerruy[address] [place], [place] [address]Dr. Airam Tripathi Lymphocytes/100 WBC (Bld) 16.0 % Critically low 20.5-60.0 [facility] Comment on above: Performed By: #### C BC ####[facility] Avlfcfofsr1145[address] [place], [place] [address]Dr. Selenaneil Tripathi MANUAL DIFF REQ NO Normal [facility] Comment on above: Performed By: #### C BC ####[facility] Ykfdcmxizm[address] [place], [place] [id number]. Airam Tripathi MCH (RBC) [Entitic mass] 30.0 pg Normal 26.7-34.0 [facility] Comment on above: Performed By: #### C BC ####[facility] Ontjiyztrp5[address] [place] [address]Dr. Airam Tripathi MCHC (RBC) [Mass/Vol] 32.3 g/dL Normal 29.9-35.2 [facility] Comment on above: Performed By: #### C BC ####[facility] Irhbvfxqod038[address] [place] [address]Dr. Airam Tripathi MCV (RBC) [Entitic vol] 92.8 fL Normal 81.0-99.0 [facility] Comment on above: Performed By: #### C BC ####[facility] Gebkoxasxd50[address] [place] [address]Dr. Airam Deuce MONO # 0.4 103/ul Normal 0.3-0.8 [facility] Comment on above: Performed By: #### C BC ####[facility] Fbfnjkywsh500[address] [place], [place] [address]Dr. Airam Deuce Monocytes/100 WBC (Bld) 4.9 % Normal 1.7-12.0 [facility] Comment on above: Performed By: #### C BC ####[facility] Lrzgsgkagg5225 [place] [address]Dr. Airam Tripathi NEUT # 6.6 103/ul Critically high 1.4-6.5 [facility] Comment on above: Performed By: #### C BC ####[facility] Fhzpgogihe47[address] [place], [place] [address]Dr. Airam Deuce Neutrophils/100 WBC (Bld) 76.5 % Critically high 43.0-75.0 [facility] Comment on above: Performed By: #### C BC ####[facility] Ol[address]zdumph[address] [place] [address]Dr. Airam Deuce Platelet mean volume (Bld) [Entitic vol] 9.8 fL Normal 9.5-13.5 [facility] Comment on above: Performed By: #### C BC ####[facility] [address]xjaqjd16[address] [place] [id number]. Selenaneil Deuce PLT 262 103/ul Normal 150-450 [facility] Comment on above: Performed By: #### C BC ####[facility] Fcmludvjvu6411 [place] [id number]. Airam Tripathi RBC 3.47 106/ul Critically low 4.20-5.40 [facility] Comment on above: Performed By: #### C BC ####[facility] Jqeghdedrk9260 [place] [address]Dr. Airam Tripathi WBC 8.7 103/ul Normal 4.0-11.0 [facility] Comment on above: Performed By: #### C BC ####[facility] Mrkqxbrwuc475[address] [place], [place] [address]Dr. Airam Tripathi PROF 14(COMP METB)on 022 Albumin [Mass/Vol] 3.3 g/dL Critically low 3.4-5.0 [facility] Comment on above: Performed By: #### C MP ####[facility] Jhopbyahoa8[address] [place] [address]Dr. Airam Tripathi Albumin/Globulin [Mass ratio] 1.1 {ratio} Normal [facility] Comment on above: Performed By: #### C MP ####[facility] Ghfgyvcujn224[address] [place], [place] [address]Dr. Airam Tripathi ALP [Catalytic activity/Vol] 114 U/L Normal 46-116 [facility] Comment on above: Performed By: #### C MP ####[facility] Pyvqbqdrfy8[address] [place] [address]Dr. Airam Tripathi ALT [Catalytic activity/Vol] 20 U/L Normal 14-59 [facility] Comment on above: Performed By: #### C MP ####[facility] Vgtaqljpxo4164[address] [place], [place] [address]Dr. Airam Tripathi Anion gap [Moles/Vol] 14.7 mmol/L Normal [facility] Comment on above: Performed By: #### C MP ####[facility] Hwozjtmylg6760 [place] [address]Dr. Airam Tripathi AST [Catalytic activity/Vol] 22 U/L Normal 15-37 [facility] Comment on above: Performed By: #### C MP ####[facility] Lmvzuujwti3816[address] [place], [place] [address]Dr. Airam Tripathi Bilirubin [Mass/Vol] 0.3 mg/dL Normal 0.2-1.0 [facility] Comment on above: Performed By: #### C MP ####[facility] Nuoknltxcu9757[address] [place], [place] [address]Dr. Airam Tripathi Calcium [Mass/Vol] 8.8 mg/dL Normal 8.5-10.1 [facility] Comment on above: Performed By: #### C MP ####[facility] Wbnyffkjqr5[address] [place], [place] [address]Dr. Airam Tripathi Chloride [Moles/Vol] 97 mmol/L Critically low 98-107 [facility] Comment on above: Performed By: #### C MP ####[facility] Olszrleoot456[address] [place], [place] [address]Dr. Airam Tripathi CO2 [Moles/Vol] 24.5 mmol/L Normal 21.0-32.0 [facility] Comment on above: Performed By: #### C MP ####[facility] Ooznxcsyfv498[address] [place], [place] [address]Dr. Airam Tripathi Creatinine [Mass/Vol] 1.28 mg/dL Critically high 0.55-1.02 [facility] Comment on above: Performed By: #### C MP ####[facility] Hgzrtmicnw399[address] [place], [place] [address]Dr. Airam Tripathi EGFR-AF PANAMANIAN 52 mL/min/1.73m2 Critically low >=60 [facility] Comment on above: Performed By: #### C MP ####[facility] Mhbjpyduwv0813[address] [place], [place] [address]Dr. Airam Tripathi EGFR-NON AF PANAMANIAN 43 mL/min/1.73m2 Critically low >=60 [facility] Comment on above: Performed By: #### C MP ####[facility] Eocblndixa8[address] [place] [address]Dr. Airam Tripathi Globulin (S) [Mass/Vol] 3.1 g/dL Normal [facility] Comment on above: Performed By: #### C MP ####[facility] Oyynzkvdlu0896 [place] [address]Dr. Airam Tripathi Glucose [Mass/Vol] 87 mg/dL Normal 74-106 [facility] Comment on above: Performed By: #### C MP ####[facility] Yqootybonm1802 [place] [address]Dr. Airam Tripathi Potassium [Moles/Vol] 4.2 mmol/L Normal 3.5-5.1 [facility] Comment on above: Performed By: #### C MP ####[facility] Gchtmcgetj232[address] [place], [place] [address]Dr. Airam Tripathi Protein [Mass/Vol] 6.4 g/dL Normal 6.4-8.2 [facility] Comment on above: Performed By: #### C MP ####[facility] Kzlxhdrsuk1794[address] [place], [place] [address]Dr. Airam Tripathi Sodium [Moles/Vol] 132 mmol/L Critically low 136-145 [facility] Comment on above: Performed By: #### C MP ####[facility] Axvwatoker696[address] [place], [place] [address]Dr. Airam Tripathi Urea nitrogen [Mass/Vol] 36.0 mg/dL Critically high 7.0-18.0 [facility] Comment on above: Performed By: #### C MP ####[facility] Ffyhleovkj385[address] [place], [place] [address]Dr. Airam Tripathi Urea nitrogen/Creatinine [Mass ratio] 28.1 mg/mg Normal [facility] Comment on above: Performed By: #### C MP ####[facility] Imqtqfkhra80[address] [place], [place] [address]Dr. Airam Tripathi XR DEXA BONE DENSITYon 01-19 XR DEXA BONE DENSITY Normal [facility] OSMOLALITYon 01-13-2022 Osmolality [Osmolality] 277 mosm/kg Normal 275-295 [facility] Comment on above: Performed By: #### O SMO ####[facility] Jcknuykliy5[address] [place] [address]Dr. Airam Tripathi CBC AUTO DIFFon 01-11-2022 BASO # 0.0 103/ul Normal 0.0-0.1 [facility] Comment on above: Performed By: #### C BC ####[facility] Nvpqdbwthh9414[address] [place], [place] [address]Dr. Airam Tripathi Basophils/100 WBC (Bld) 0.5 % Normal 0.2-2.0 [facility] Comment on above: Performed By: #### C BC ####[facility] Ohvxkdzcoc8375[address] [place], [place] [address]Dr. Airam Tripathi EO # 0.2 103/ul Normal 0.0-0.7 [facility] Comment on above: Performed By: #### C BC ####[facility] Fikkacqtff908[address] [place], [place] [address]Dr. Airam Tripathi Eosinophils/100 WBC (Bld) 3.1 % Normal 0.9-7.0 [facility] Comment on above: Performed By: #### C BC ####[facility] Hfzxdjejhp129[address] [place], [place] [address]Dr. Selenaneil Tripathi Erythrocyte distribution width (RBC) [Ratio] 12.5 % Normal 11.0-15.0 [facility] Comment on above: Performed By: #### C BC ####[facility] Ybvinwnakz6458[address] [place], [place] [address]Dr. Airam Tripathi Hematocrit (Bld) [Volume fraction] 34.4 % Critically low 36.0-48.0 [facility] Comment on above: Performed By: #### C BC ####[facility] Pbwdjodoin8909[address] [place], [place] [address]Dr. Airam Tripathi Hemoglobin (Bld) [Mass/Vol] 11.0 g/dL Critically low 12.0-16.0 [facility] Comment on above: Performed By: #### C BC ####[facility] Cygtabqppl3010[address] [place], [place] [address]Dr. Airam Tripathi IG # 0.03 10e3/ul Normal 0.00-0.03 [facility] Comment on above: Performed By: #### C BC ####[facility] Niyajmprdb2797 [place] [address]DrKianna Airam Tripathi IG % 0.5 % Normal 0.0-0.5 [facility] Comment on above: Performed By: #### C BC ####[facility] Wtwhoclfmh010[address] [place], [place] [address]DrKianna Airam Tripathi LYMPH # 1.6 103/ul Normal 1.2-3.8 [facility] Comment on above: Performed By: #### C BC ####[facility] Vcuclcazex[address] [place], [place] [address]DrKianna Airam Deuce Lymphocytes/100 WBC (Bld) 28.0 % Normal 20.5-60.0 [facility] Comment on above: Performed By: #### C BC ####[facility] Kqeqytbjaq79[address] [place], [place] [address]DrKianna Airam Tripathi MANUAL DIFF REQ NO Normal [facility] Comment on above: Performed By: #### C BC ####[facility] Gfsrdtneev6[address] [place], [place] [address]DrKianna Airam Tripathi MCH (RBC) [Entitic mass] 30.1 pg Normal 26.7-34.0 [facility] Comment on above: Performed By: #### C BC ####[facility] [address] [place], [place] [address]DrKianna Airam Tripathi MCHC (RBC) [Mass/Vol] 32.0 g/dL Normal 29.9-35.2 [facility] Comment on above: Performed By: #### C BC ####[facility] Cjtxgyzvgi[address] [place], [place] [address]DrKianna Airam Deuce MCV (RBC) [Entitic vol] 94.0 fL Normal 81.0-99.0 [facility] Comment on above: Performed By: #### C BC ####[facility] Kpxasrrmjm[address] [place], [place] [address]DrKianna Tripathi MONO # 0.4 103/ul Normal 0.3-0.8 [facility] Comment on above: Performed By: #### C BC ####[facility] Ckniisxdbp68[address] [place] [address]Dr. Airam Tripathi Monocytes/100 WBC (Bld) 7.5 % Normal 1.7-12.0 [facility] Comment on above: Performed By: #### C BC ####[facility] Frtgsccrot9[address] [place] [address]Dr. Airam Tripathi NEUT # 3.5 103/ul Normal 1.4-6.5 [facility] Comment on above: Performed By: #### C BC ####[facility] Depayouxsk8510 [place] [address]Dr. Airam Tripathi Neutrophils/100 WBC (Bld) 60.4 % Normal 43.0-75.0 [facility] Comment on above: Performed By: #### C BC ####[facility] Lpceazbagu6346 [place] [address]Dr. Airam Tripathi Platelet mean volume (Bld) [Entitic vol] 10.0 fL Normal 9.5-13.5 [facility] Comment on above: Performed By: #### C BC ####[facility] Mryyfsbsyr5396 [place] [address]Dr. Airam Tripathi PLT 300 103/ul Normal 150-450 [facility] Comment on above: Performed By: #### C BC ####[facility] Fjgkgxbyou5703 [place] [address]Dr. Airam Tripathi RBC 3.66 106/ul Critically low 4.20-5.40 [facility] Comment on above: Performed By: #### C BC ####[facility] Vasdlwqeuj6766 [place] [id number]. Airam Tripathi WBC 5.7 103/ul Normal 4.0-11.0 [facility] Comment on above: Performed By: #### C BC ####[facility] Zbtcbegpng9332 [place] [address]DrKianna Selenaneil Tripathi PROF 14(COMP METB)on 022 Albumin [Mass/Vol] 3.3 g/dL Critically low 3.4-5.0 [facility] Comment on above: Performed By: #### C MP ####[facility] Jtjosbpmeb2603 [place] [address]Dr. Airam Tripathi Albumin/Globulin [Mass ratio] 1.0 {ratio} Normal [facility] Comment on above: Performed By: #### C MP ####[facility] Tcsjfdeuvt7237 [place] [address]Dr. Airam Tripathi ALP [Catalytic activity/Vol] 138 U/L Critically high 46-116 [facility] Comment on above: Performed By: #### C MP ####[facility] Pvqvdnotkp[address] [place], [place] [address]Dr. Airam Tripathi ALT [Catalytic activity/Vol] 25 U/L Normal 14-59 [facility] Comment on above: Performed By: #### C MP ####[facility] Tiiyaxbxre0[address] [place], [place] [address]Dr. Airam Tripathi Anion gap [Moles/Vol] 14.0 mmol/L Normal [facility] Comment on above: Performed By: #### C MP ####[facility] Jfckpmarpa673[address] [place], [place] [address]Dr. Airam Tripathi AST [Catalytic activity/Vol] 19 U/L Normal 15-37 [facility] Comment on above: Performed By: #### C MP ####[facility] Vhzdwhqqit9[address] [place], [place] [address]Dr. Airam Tripathi Bilirubin [Mass/Vol] 0.3 mg/dL Normal 0.2-1.0 [facility] Comment on above: Performed By: #### C MP ####[facility] Aixuhvxese[address] [place], [place] [address]Dr. Airam Tripathi Calcium [Mass/Vol] 8.7 mg/dL Normal 8.5-10.1 [facility] Comment on above: Performed By: #### C MP ####[facility] Rvcyakrzne09[address] [place], [place] [address]Dr. Airam Tripathi Chloride [Moles/Vol] 99 mmol/L Normal 98-107 [facility] Comment on above: Performed By: #### C MP ####[facility] Jfocucaqki8371 [place] [phone]. Airam Tripathi CO2 [Moles/Vol] 25.4 mmol/L Normal 21.0-32.0 [facility] Comment on above: Performed By: #### C MP ####[facility] Clfxohxrpu7308 [place] [phone]. Airam Tripathi Creatinine [Mass/Vol] 1.22 mg/dL Critically high 0.55-1.02 [facility] Comment on above: Performed By: #### C MP ####[facility] Aladqvfiru2210 [place] [phone]. Airam Tripathi EGFR-AF PANAMANIAN 55 mL/min/1.73m2 Critically low >=60 [facility] Comment on above: Performed By: #### C MP ####[facility] Xsckrcauwr2130 [place] [address]Dr. Airam Tripathi EGFR-NON AF PANAMANIAN 45 mL/min/1.73m2 Critically low >=60 [facility] Comment on above: Performed By: #### C MP ####[facility] Avhdhzearo8011 [place] [phone]. Airam Tripathi Globulin (S) [Mass/Vol] 3.2 g/dL Normal [facility] Comment on above: Performed By: #### C MP ####[facility] Ijediinqhi6003 [place] [phone]. Airam Tripathi Glucose [Mass/Vol] 111 mg/dL Critically high 74-106 [facility] Comment on above: Performed By: #### C MP ####[facility] Uusdxledza9584 [place] [phone]. Airam Tripathi Potassium [Moles/Vol] 4.4 mmol/L Normal 3.5-5.1 [facility] Comment on above: Performed By: #### C MP ####[facility] Vwvmgucvdu2753 [place] [phone]. Airam Tripathi Protein [Mass/Vol] 6.5 g/dL Normal 6.4-8.2 [facility] Comment on above: Performed By: #### C MP ####[facility] Uskkkkrbpi34[address] [place], [place] [address]Zo. Airam Tripathi Sodium [Moles/Vol] 134 mmol/L Critically low 136-145 Th [facility] Comment on above: Performed By: #### C MP ####[facility] Tfhkskikhj3577 [place], [place] [address]Jg. Airam Tripathi Urea nitrogen [Mass/Vol] 27.0 mg/dL Critically high 7.0-18.0 [facility] Comment on above: Performed By: #### C MP ####[facility] Sjpxeoytro6012 [place], [place] [address]Mh. Airam Tripathi Urea nitrogen/Creatinine [Mass ratio] 22.1 mg/mg Normal [facility] Comment on above: Performed By: #### C MP ####[facility] Cvsotuabnh7563 [place], [place] [address]Mk. Airam Tripathi CT CERVICAL SPINE WITHOUT CO NTRASTon 01-10-2022 CT CERVICAL SPINE WITHOUT CONTRAST [facility] Department of Radiology [address] [place] [id number] Patient Name: MABEL MOSER : 1960 [...] achievable. Electronically signed: Ayleen Ny. Transcribed by: [id number], User Resident: Electronically Signed by: AYLEEN [place] @ 01/12/2022 12:32 PM Normal [facility] OSMOLALITYon 01-07-2022 Osmolality [Osmolality] 286 mosm/kg Normal 275-295 [facility] Comment on above: Performed By: #### O SMO ####[facility] Vxyqximdls9412 [place] [phone]. Alegria Tripathi CBC AUTO DIFFon 01-06-2022 BASO # 0.0 103/ul Normal 0.0-0.1 [facility] Comment on above: Performed By: #### C BC ####[facility] Auuawcivni7848 [place] [address]Dr. Airam Tripathi Basophils/100 WBC (Bld) 0.3 % Normal 0.2-2.0 [facility] Comment on above: Performed By: #### C BC ####[facility] Blzywdelrg2434 [place] [address]Dr. Airam Tripathi EO # 0.2 103/ul Normal 0.0-0.7 [facility] Comment on above: Performed By: #### C BC ####[facility] Bikworvsfl7509 [place] [address]Dr. Airam Tripathi Eosinophils/100 WBC (Bld) 4.1 % Normal 0.9-7.0 [facility] Comment on above: Performed By: #### C BC ####[facility] Necnqhxhzf[address] [place], [place] [address]Dr. Airam Tripathi Erythrocyte distribution width (RBC) [Ratio] 12.9 % Normal 11.0-15.0 [facility] Comment on above: Performed By: #### C BC ####[facility] Mrbfjvpfsu4289 [place] [address]Dr. Airam Tripathi Hematocrit (Bld) [Volume fraction] 34.2 % Critically low 36.0-48.0 [facility] Comment on above: Performed By: #### C BC ####[facility] Hifczlpzgm[address] [place], [place] [address]Dr. Airam Tripathi Hemoglobin (Bld) [Mass/Vol] 10.6 g/dL Critically low 12.0-16.0 [facility] Comment on above: Performed By: #### C BC ####[facility] Skdmhfnfbd07[address] [place], [place] [address]Dr. Airam Tripathi IG # 0.03 10e3/ul Normal 0.00-0.03 [facility] Comment on above: Performed By: #### C BC ####[facility] Dvhfltokbc0497 [place] [phone]. Airam Tripathi IG % 0.5 % Normal 0.0-0.5 [facility] Comment on above: Performed By: #### C BC ####[facility] Qkdopnbhol3187 [place] [phone]. Airam Tripathi LYMPH # 1.1 103/ul Critically low 1.2-3.8 [facility] Comment on above: Performed By: #### C BC ####[facility] Wzjskmbmkb7278 [place] [phone]. Airam Tripathi Lymphocytes/100 WBC (Bld) 18.2 % Critically low 20.5-60.0 [facility] Comment on above: Performed By: #### C BC ####[facility] Jcaxvvvpjv5660 [place] [phone]. Airam Deuce MANUAL DIFF REQ NO Normal [facility] Comment on above: Performed By: #### C BC ####[facility] Chzcjhmytp2619 [place] [phone]. Airam Tripathi MCH (RBC) [Entitic mass] 29.6 pg Normal 26.7-34.0 [facility] Comment on above: Performed By: #### C BC ####[facility] Qixeyeifdq3932 [place] [phone]. Airam Tripathi MCHC (RBC) [Mass/Vol] 31.0 g/dL Normal 29.9-35.2 [facility] Comment on above: Performed By: #### C BC ####[facility] Bkfiiwaydq7047 [place] [phone]. Airam Tripathi MCV (RBC) [Entitic vol] 95.5 fL Normal 81.0-99.0 [facility] Comment on above: Performed By: #### C BC ####[facility] Kmpfigrfpv9375 [place] [phone]. Airam Deuce MONO # 0.5 103/ul Normal 0.3-0.8 [facility] Comment on above: Performed By: #### C BC ####[facility] Eiksyewqus7780 [place] [phone]. Airam Tripathi Monocytes/100 WBC (Bld) 8.5 % Normal 1.7-12.0 [facility] Comment on above: Performed By: #### C BC ####[facility] Hwzkcrmbkr5544 [place] [phone]. Airam Tripathi NEUT # 4.0 103/ul Normal 1.4-6.5 [facility] Comment on above: Performed By: #### C BC ####[facility] Bdlrpxknvy9017 [place] [phone]. Airam Tripathi Neutrophils/100 WBC (Bld) 68.4 % Normal 43.0-75.0 [facility] Comment on above: Performed By: #### C BC ####[facility] Irmlmcvkzg6889 [place] [address]Dr. Airam Tripathi Platelet mean volume (Bld) [Entitic vol] 10.1 fL Normal 9.5-13.5 [facility] Comment on above: Performed By: #### C BC ####[facility] Bkacuyrthn9521 [place] [phone]. Airam Tripathi PLT 304 103/ul Normal 150-450 [facility] Comment on above: Performed By: #### C BC ####[facility] Fqejyggjwl1711 [place] [phone]. Airam Tripathi RBC 3.58 106/ul Critically low 4.20-5.40 [facility] Comment on above: Performed By: #### C BC ####[facility] Vsdttcuwla8356 [place] [phone]. Airam Tripathi WBC 5.9 103/ul Normal 4.0-11.0 [facility] Comment on above: Performed By: #### C BC ####[facility] Kahzlwbxbw8388 [place] [address]Dr. Airam Tripathi MG MAMM RT DIAG FUon 022 MG MAMM RT DIAG FU Normal [facility] PROF 14(COMP METB)on 022 Albumin [Mass/Vol] 3.1 g/dL Critically low 3.4-5.0 [facility] Comment on above: Performed By: #### C MP ####[facility] Ojwticiaee5548 [place] [address]Dr. Airam Tripathi Albumin/Globulin [Mass ratio] 1.0 {ratio} Normal [facility] Comment on above: Performed By: #### C MP ####[facility] Tactmeezbb5839 [place] [address]Dr. Airam Tripathi ALP [Catalytic activity/Vol] 143 U/L Critically high 46-116 [facility] Comment on above: Performed By: #### C MP ####[facility] Jcuittqhyx029[address] [place], [place] [address]Dr. Airam Tripathi ALT [Catalytic activity/Vol] 23 U/L Normal 14-59 [facility] Comment on above: Performed By: #### C MP ####[facility] Gmfibniaav84[address] [place], [place] [address]Dr. Airam Tripathi Anion gap [Moles/Vol] 13.2 mmol/L Normal Th [facility] Comment on above: Performed By: #### C MP ####[facility] Enbscojipr6[address] [place], [place] [address]Dr. Airam Tripathi AST [Catalytic activity/Vol] 20 U/L Normal 15-37 [facility] Comment on above: Performed By: #### C MP ####[facility] Yaocfqlfpk7005[address] [place], [place] [address]Dr. Airam Tripathi Bilirubin [Mass/Vol] 0.3 mg/dL Normal 0.2-1.0 [facility] Comment on above: Performed By: #### C MP ####[facility] Xwfzbvwwxa5[address] [place], [place] [address]Dr. Airam Tripathi Calcium [Mass/Vol] 8.2 mg/dL Critically low 8.5-10.1 [facility] Comment on above: Performed By: #### C MP ####[facility] Yhrekxhmls3801[address] [place], [place] [address]Dr. Airam Tripathi Chloride [Moles/Vol] 100 mmol/L Normal 98-107 [facility] Comment on above: Performed By: #### C MP ####[facility] Tmwwikruqu9183 [place] [phone]. Airam Tripathi CO2 [Moles/Vol] 26.0 mmol/L Normal 21.0-32.0 [facility] Comment on above: Performed By: #### C MP ####[facility] Felnrswkxy3275 [place] [address]Dr. Airam Tripathi Creatinine [Mass/Vol] 1.52 mg/dL Critically high 0.55-1.02 [facility] Comment on above: Performed By: #### C MP ####[facility] Llkgqkzmzl7078 [place] [phone]. Airam Tripathi EGFR-AF PANAMANIAN 42 mL/min/1.73m2 Critically low >=60 [facility] Comment on above: Performed By: #### C MP ####[facility] Xlsrhpwnhe8139[address] [place], [place] [address]Dr. Airam Tripathi EGFR-NON AF PANAMANIAN 35 mL/min/1.73m2 Critically low >=60 [facility] Comment on above: Performed By: #### C MP ####[facility] Kweswpuhih0422 [place] [address]Dr. Airam Tripathi Globulin (S) [Mass/Vol] 3.2 g/dL Normal [facility] Comment on above: Performed By: #### C MP ####[facility] Itsdewixbn6905 [place] [address]Dr. Airam Tripathi Glucose [Mass/Vol] 84 mg/dL Normal 74-106 [facility] Comment on above: Performed By: #### C MP ####[facility] Bntzbnnrlv5820 [place] [phone]. Airam Tripathi Potassium [Moles/Vol] 4.2 mmol/L Normal 3.5-5.1 [facility] Comment on above: Performed By: #### C MP ####[facility] Ftnjpphold1546 [place] [address]Dr. Airam Tripathi Protein [Mass/Vol] 6.3 g/dL Critically low 6.4-8.2 [facility] Comment on above: Performed By: #### C MP ####[facility] Wiztzshfvq9596[address] [place], [place] [address]DrKianna Tripathi Sodium [Moles/Vol] 135 mmol/L Critically low 136-145 Th [facility] Comment on above: Performed By: #### C MP ####[facility] Hrkwkfcvoq5399[address] [place], [place] [address]DrKianna Tripathi Urea nitrogen [Mass/Vol] 36.0 mg/dL Critically high 7.0-18.0 [facility] Comment on above: Performed By: #### C MP ####[facility] Nznrzcvuag50[address] [place], [place] [address]DrKianna Tripathi Urea nitrogen/Creatinine [Mass ratio] 23.7 mg/mg Normal [facility] Comment on above: Performed By: #### C MP ####[facility] Uaoebkawht15[address] [place], [place] [address]DrKianna Tripathi US BREAST RIGHT LIMITEDon US BREAST RIGHT LIMITED Normal [facility] OSMOLALITYon 12-31-2021 Osmolality [Osmolality] 280 mosm/kg Normal 275-295 [facility] Comment on above: Performed By: #### O SMO ####[facility] Ibvuhwhywr5580[address] [place], [place] [address]DrKianna Tripathi CBC AUTO DIFFon 12-30-2021 BASO # 0.0 103/ul Normal 0.0-0.1 [facility] Comment on above: Performed By: #### C BC ####[facility] Fvgqcmbtkx2957[address] [place], [place] [address]DrKianna Tripathi Basophils/100 WBC (Bld) 0.5 % Normal 0.2-2.0 [facility] Comment on above: Performed By: #### C BC ####[facility] Eajzrccben3030[address] [place], [place] [address]DrKianna Tripathi EO # 0.3 103/ul Normal 0.0-0.7 [facility] Comment on above: Performed By: #### C BC ####[facility] Znvyobjctw1023[address] [place], [place] [address]Dr. Airam Tripathi Eosinophils/100 WBC (Bld) 3.5 % Normal 0.9-7.0 [facility] Comment on above: Performed By: #### C BC ####[facility] Pjnxtpjrcn0306 [place] [address]Dr. Airam Tripathi Erythrocyte distribution width (RBC) [Ratio] 13.0 % Normal 11.0-15.0 [facility] Comment on above: Performed By: #### C BC ####[facility] Teflrsokfv034[address] [place], [place] [address]Dr. Airam Tripathi Hematocrit (Bld) [Volume fraction] 34.2 % Critically low 36.0-48.0 [facility] Comment on above: Performed By: #### C BC ####[facility] Oudfykaaqc415[address] [place], [place] [address]Dr. Airam Tripathi Hemoglobin (Bld) [Mass/Vol] 10.4 g/dL Critically low 12.0-16.0 [facility] Comment on above: Performed By: #### C BC ####[facility] Cqnnuqjjew13[address] [place], [place] [address]Dr. Airam Tripathi IG # 0.04 10e3/ul Critically high 0.00-0.03 [facility] Comment on above: Performed By: #### C BC ####[facility] Crfqasshsl06[address] [place], [place] [address]Dr. Airam Tripathi IG % 0.5 % Normal 0.0-0.5 [facility] Comment on above: Performed By: #### C BC ####[facility] Vaytfdrdpa60[address] [place], [place] [address]Dr. Airam Tripathi LYMPH # 2.1 103/ul Normal 1.2-3.8 [facility] Comment on above: Performed By: #### C BC ####[facility] Xffopgbwdr277[address] [place], [place] [address]Dr. Airam Tripathi Lymphocytes/100 WBC (Bld) 23.5 % Normal 20.5-60.0 [facility] Comment on above: Performed By: #### C BC ####[facility] Prtlokdaiy8881 [place] [address]Dr. Airam Deuce MANUAL DIFF REQ NO Normal [facility] Comment on above: Performed By: #### C BC ####[facility] Uexgrledmi8691 [place] [address]Dr. Airam Tripathi MCH (RBC) [Entitic mass] 29.4 pg Normal 26.7-34.0 [facility] Comment on above: Performed By: #### C BC ####[facility] Oeuiwefoqu363[address] [place], [place] [address]Dr. Airam Deuce MCHC (RBC) [Mass/Vol] 30.4 g/dL Normal 29.9-35.2 [facility] Comment on above: Performed By: #### C BC ####[facility] Gudelndivv6257[address] [place], [place] [address]Dr. Selenaneil Tripathi MCV (RBC) [Entitic vol] 96.6 fL Normal 81.0-99.0 [facility] Comment on above: Performed By: #### C BC ####[facility] Qljzikqpkz4019[address] [place], [place] [address]Dr. Airam Deuce MONO # 0.6 103/ul Normal 0.3-0.8 [facility] Comment on above: Performed By: #### C BC ####[facility] Dtrxtsuiff2632[address] [place], [place] [address]Dr. Airam Tripathi Monocytes/100 WBC (Bld) 6.4 % Normal 1.7-12.0 [facility] Comment on above: Performed By: #### C BC ####[facility] Erbovwcgqo8149[address] [place], [place] [address]Dr. Selenaneil Deuce NEUT # 5.8 103/ul Normal 1.4-6.5 [facility] Comment on above: Performed By: #### C BC ####[facility] Qdoxetopdk334[address] [place], [place] [address]Dr. Selenaneil Tripathi Neutrophils/100 WBC (Bld) 65.6 % Normal 43.0-75.0 [facility] Comment on above: Performed By: #### C BC ####[facility] Zxachokdqn0194[address] [place], [place] [address]Dr. Airam Tripathi Platelet mean volume (Bld) [Entitic vol] 9.2 fL Critically low 9.5-13.5 [facility] Comment on above: Performed By: #### C BC ####[facility] Xuljdxgupn6291 [place] [address]Dr. Airam Tripathi PLT 338 103/ul Normal 150-450 [facility] Comment on above: Performed By: #### C BC ####[facility] Qqulwhyoif5033 [place] [address]Dr. Airam Tripathi RBC 3.54 106/ul Critically low 4.20-5.40 [facility] Comment on above: Performed By: #### C BC ####[facility] Bqtixkbtzy1895 [place] [address]Dr. Airam Tripathi WBC 8.9 103/ul Normal 4.0-11.0 [facility] Comment on above: Performed By: #### C BC ####[facility] Vzlvnplcke6509 [place] [address]Dr. Airam Tripathi MG MAMM SCREEN 3D GUMARO CADon 12-30-2021 MG MAMM SCREEN 3D GUMARO CAD Normal [facility] PROF 14(COMP METB)on 022 Albumin [Mass/Vol] 3.6 g/dL Normal 3.4-5.0 [facility] Comment on above: Performed By: #### C MP ####[facility] Pqvpsyqhjd5634 [place] [address]Dr. Airam Tripathi Albumin/Globulin [Mass ratio] 1.1 {ratio} Normal [facility] Comment on above: Performed By: #### C MP ####[facility] Ixrnveyhii5931 [place] [address]Dr. Selenaneil Deuce ALP [Catalytic activity/Vol] 117 U/L Critically high 46-116 [facility] Comment on above: Performed By: #### C MP ####[facility] Urazkviqhz2904 [place] [address]Dr. Airam Tripathi ALT [Catalytic activity/Vol] 26 U/L Normal 14-59 [facility] Comment on above: Performed By: #### C MP ####[facility] Kijisbngma7499 [place] [phone]. Airam Tripathi Anion gap [Moles/Vol] 11.2 mmol/L Normal [facility] Comment on above: Performed By: #### C MP ####[facility] Rnnxjkrlfy7375 [place] [phone]. Airam Tripathi AST [Catalytic activity/Vol] 29 U/L Normal 15-37 [facility] Comment on above: Performed By: #### C MP ####[facility] Tibphxzcmy9648 [place] [id number]. Airam Tripathi Bilirubin [Mass/Vol] 0.3 mg/dL Normal 0.2-1.0 [facility] Comment on above: Performed By: #### C MP ####[facility] Uqfh[address]feib[address] [place], [place] [address]Dr. Airam Tripathi Calcium [Mass/Vol] 9.1 mg/dL Normal 8.5-10.1 [facility] Comment on above: Performed By: #### C MP ####[facility] Qxyulztria[address] [place], [place] [address]Dr. Airam Tripathi Chloride [Moles/Vol] 101 mmol/L Normal 98-107 [facility] Comment on above: Performed By: #### C MP ####[facility] Qbkdyjeuiw[address] [place], [place] [id number]. Airam Tripathi CO2 [Moles/Vol] 26.8 mmol/L Normal 21.0-32.0 [facility] Comment on above: Performed By: #### C MP ####[facility] Xfwqwhvqql8493 [place] [id number]. Airam Tripathi Creatinine [Mass/Vol] 1.56 mg/dL Critically high 0.55-1.02 [facility] Comment on above: Performed By: #### C MP ####[facility] Wdsitxkmos8884 [place] [id number]. Airam Tripathi EGFR-AF PANAMANIAN 41 mL/min/1.73m2 Critically low >=60 [facility] Comment on above: Performed By: #### C MP ####[facility] Zujwpwabuo5945 [place] [id number]. Airam Tripathi EGFR-NON AF PANAMANIAN 34 mL/min/1.73m2 Critically low >=60 [facility] Comment on above: Performed By: #### C MP ####[facility] Mebuykqnxm9992 [place] [phone]. Airam Tripathi Globulin (S) [Mass/Vol] 3.3 g/dL Normal [facility] Comment on above: Performed By: #### C MP ####[facility] Gfomtjvfsw8051 [place] [phone]. Ariam Tripathi Glucose [Mass/Vol] 84 mg/dL Normal 74-106 [facility] Comment on above: Performed By: #### C MP ####[facility] Cixkhoutex3489 [place] [phone]. Airam Tripathi Potassium [Moles/Vol] 5.0 mmol/L Normal 3.5-5.1 [facility] Comment on above: Performed By: #### C MP ####[facility] Aymqnxvdnh6171 [place] [phone]. Airam Tripathi Protein [Mass/Vol] 6.9 g/dL Normal 6.4-8.2 [facility] Comment on above: Performed By: #### C MP ####[facility] Mcidqxardu5539 [place] [id number]. Airam Tripathi Sodium [Moles/Vol] 134 mmol/L Critically low 136-145 [facility] Comment on above: Performed By: #### C MP ####[facility] Wvilywzsio3350 [place] [phone]. Airam Tripathi Urea nitrogen [Mass/Vol] 28.0 mg/dL Critically high 7.0-18.0 [facility] Comment on above: Performed By: #### C MP ####[facility] Akchoqemli8440 [place] [phone]. Airam Tripathi Urea nitrogen/Creatinine [Mass ratio] 17.9 mg/mg Normal [facility] Comment on above: Performed By: #### C MP ####[facility] Ldpzgmahda5[address] [place] [address]Dr. Airam Tripathi OSMOLALITYon 12-24-2021 Osmolality [Osmolality] 287 mosm/kg Normal 275-295 [facility] Comment on above: Performed By: #### O SMO ####[facility] Ljziewkgoa55[address] [place], [place] [address]Dr. Airam Tripathi CBC AUTO DIFFon 12-22-2021 BASO # 0.0 103/ul Normal 0.0-0.1 [facility] Comment on above: Performed By: #### C BC ####[facility] Lynqyetayj4340 [place] [address]Dr. Airam Tripathi Basophils/100 WBC (Bld) 0.5 % Normal 0.2-2.0 [facility] Comment on above: Performed By: #### C BC ####[facility] Karorlakod70[address] [place], [place] [address]Dr. Airam Tripathi EO # 0.4 103/ul Normal 0.0-0.7 [facility] Comment on above: Performed By: #### C BC ####[facility] Jqtkhdlajq6[address] [place], [place] [address]Dr. Airam Tripathi Eosinophils/100 WBC (Bld) 6.4 % Normal 0.9-7.0 [facility] Comment on above: Performed By: #### C BC ####[facility] Oizewykjds4[address] [place], [place] [address]Dr. Airam Tripathi Erythrocyte distribution width (RBC) [Ratio] 13.2 % Normal 11.0-15.0 [facility] Comment on above: Performed By: #### C BC ####[facility] Uuogawlfae0[address] [place], [place] [address]Dr. Airam Tripathi Hematocrit (Bld) [Volume fraction] 32.2 % Critically low 36.0-48.0 [facility] Comment on above: Performed By: #### C BC ####[facility] Tqjrpxgwrz12[address] [place], [place] [address]Dr. Airam Tripathi Hemoglobin (Bld) [Mass/Vol] 10.1 g/dL Critically low 12.0-16.0 [facility] Comment on above: Performed By: #### C BC ####[facility] Auyissbxgb0510 [place] [address]Dr. Airam Tripathi IG # 0.03 10e3/ul Normal 0.00-0.03 [facility] Comment on above: Performed By: #### C BC ####[facility] Uhdkshqkkx1698 [place] [address]DrKianna Tripathi IG % 0.5 % Normal 0.0-0.5 [facility] Comment on above: Performed By: #### C BC ####[facility] Bcwppmazco8628 [place] [address]DrKianna Tripathi LYMPH # 1.3 103/ul Normal 1.2-3.8 [facility] Comment on above: Performed By: #### C BC ####[facility] Nrbksvwsxq49[address] [place], [place] [address]DrKianna Tripathi Lymphocytes/100 WBC (Bld) 20.5 % Normal 20.5-60.0 [facility] Comment on above: Performed By: #### C BC ####[facility] Gjtqxltatw0703 [place] [address]DrKianna Tripathi MANUAL DIFF REQ NO Normal [facility] Comment on above: Performed By: #### C BC ####[facility] Fbizhvhnxb4858 [place] [address]Dr. Airam Tripathi MCH (RBC) [Entitic mass] 30.1 pg Normal 26.7-34.0 [facility] Comment on above: Performed By: #### C BC ####[facility] Tqalwnsgid0767 [place] [address]Dr. Airam Tripathi MCHC (RBC) [Mass/Vol] 31.4 g/dL Normal 29.9-35.2 [facility] Comment on above: Performed By: #### C BC ####[facility] Fcpfekjjit8760 [place] [address]Dr. Airam Tripathi MCV (RBC) [Entitic vol] 95.8 fL Normal 81.0-99.0 [facility] Comment on above: Performed By: #### C BC ####[facility] Wepvchdkps6895 [place] [phone]. Airam Tripathi MONO # 0.5 103/ul Normal 0.3-0.8 [facility] Comment on above: Performed By: #### C BC ####[facility] Smhrnthilo4329 [place] [phone]. Airam Tripathi Monocytes/100 WBC (Bld) 7.4 % Normal 1.7-12.0 [facility] Comment on above: Performed By: #### C BC ####[facility] Rgmjphgozb1823 [place] [phone]. Airam Tripathi NEUT # 3.9 103/ul Normal 1.4-6.5 [facility] Comment on above: Performed By: #### C BC ####[facility] Ayfsqkzdce[address] [place], [place] [address]Dr. Airam Tripathi Neutrophils/100 WBC (Bld) 64.7 % Normal 43.0-75.0 [facility] Comment on above: Performed By: #### C BC ####[facility] Ahwxevnpgk1702 [place] [phone]. Airam Tripathi Platelet mean volume (Bld) [Entitic vol] 9.2 fL Critically low 9.5-13.5 [facility] Comment on above: Performed By: #### C BC ####[facility] Bavbklkmqa3283 [place] [address]Dr. Airam Tripathi PLT 309 103/ul Normal 150-450 [facility] Comment on above: Performed By: #### C BC ####[facility] Sdnkmxofnp5097 [place] [phone]. Airam Tripathi RBC 3.36 106/ul Critically low 4.20-5.40 [facility] Comment on above: Performed By: #### C BC ####[facility] Hfumbqqsvl7376 [place] [phone]. Airam Tripathi WBC 6.1 103/ul Normal 4.0-11.0 [facility] Comment on above: Performed By: #### C BC ####[facility] Wbortkenwa8672 [place] [address]Dr. Airam Tripathi PROF 14(COMP METB)on 022 Albumin [Mass/Vol] 3.2 g/dL Critically low 3.4-5.0 [facility] Comment on above: Performed By: #### C MP ####[facility] Vsahcrcdhx2184 [place] [address]Dr. Airam Tripathi Albumin/Globulin [Mass ratio] 1.1 {ratio} Normal [facility] Comment on above: Performed By: #### C MP ####[facility] Ebcdowcinv70[address] [place], [place] [address]Dr. Airam Tripathi ALP [Catalytic activity/Vol] 123 U/L Critically high 46-116 [facility] Comment on above: Performed By: #### C MP ####[facility] Miebtljvjq9[address] [place], [place] [address]Dr. Airam Tripathi ALT [Catalytic activity/Vol] 26 U/L Normal 14-59 [facility] Comment on above: Performed By: #### C MP ####[facility] Vtakeqhxed19[address] [place], [place] [address]Dr. Airam Tripathi Anion gap [Moles/Vol] 14.5 mmol/L Normal [facility] Comment on above: Performed By: #### C MP ####[facility] Leterqehpo13[address] [place], [place] [address]Dr. Airam Tripathi AST [Catalytic activity/Vol] 23 U/L Normal 15-37 [facility] Comment on above: Performed By: #### C MP ####[facility] Juztfkfiez7467[address] [place], [place] [address]Dr. Airam Tripathi Bilirubin [Mass/Vol] 0.3 mg/dL Normal 0.2-1.0 [facility] Comment on above: Performed By: #### C MP ####[facility] Mcnrjvkvvl663[address] [place], [place] [address]Dr. Airam Tripathi Calcium [Mass/Vol] 8.2 mg/dL Critically low 8.5-10.1 [facility] Comment on above: Performed By: #### C MP ####[facility] Vidinltfzq2413 [place] [address]Dr. Airam Tripathi Chloride [Moles/Vol] 102 mmol/L Normal 98-107 [facility] Comment on above: Performed By: #### C MP ####[facility] Zubgwyfjbl1431 [place] [address]Dr. Airam Tripathi CO2 [Moles/Vol] 23.2 mmol/L Normal 21.0-32.0 [facility] Comment on above: Performed By: #### C MP ####[facility] Bxoympgmpc86[address] [place], [place] [address]Dr. Airam Tripathi Creatinine [Mass/Vol] 1.98 mg/dL Critically high 0.55-1.02 [facility] Comment on above: Performed By: #### C MP ####[facility] Iaimkqahnw894[address] [place], [place] [address]Dr. Airam Tripathi EGFR-AF PANAMANIAN 31 mL/min/1.73m2 Critically low >=60 [facility] Comment on above: Performed By: #### C MP ####[facility] Acicwvxpdv97[address] [place], [place] [address]Dr. Airam Tripathi EGFR-NON AF PANAMANIAN 26 mL/min/1.73m2 Critically low >=60 [facility] Comment on above: Performed By: #### C MP ####[facility] Iolrnhvmyn51[address] [place], [place] [address]Dr. Airam Tripathi Globulin (S) [Mass/Vol] 3.0 g/dL Normal [facility] Comment on above: Performed By: #### C MP ####[facility] Irdklmffwc9727[address] [place], [place] [address]Dr. Airam Tripathi Glucose [Mass/Vol] 131 mg/dL Critically high 74-106 [facility] Comment on above: Performed By: #### C MP ####[facility] Xkcgzujnir4866[address] [place], [place] [address]Dr. Airam Tripathi Potassium [Moles/Vol] 4.7 mmol/L Normal 3.5-5.1 [facility] Comment on above: Performed By: #### C MP ####[facility] Ukqdwrhmky7651 [place] [phone]. Airam Tripathi Protein [Mass/Vol] 6.2 g/dL Critically low 6.4-8.2 [facility] Comment on above: Performed By: #### C MP ####[facility] Hznohjnjzv1647 [place] [address]Dr. Airam Deuce Sodium [Moles/Vol] 135 mmol/L Critically low 136-145 [facility] Comment on above: Performed By: #### C MP ####[facility] Dxfsrijmyb4970[address] [place], [place] [address]Dr. Airam Deuce Urea nitrogen [Mass/Vol] 37.0 mg/dL Critically high 7.0-18.0 [facility] Comment on above: Performed By: #### C MP ####[facility] Djqogfngvb0469[address] [place], [place] [address]Dr. Selenaneil Tripathi Urea nitrogen/Creatinine [Mass ratio] 18.7 mg/mg Normal [facility] Comment on above: Performed By: #### C MP ####[facility] Dfvoqawiny759[address] [place], [place] [address]Dr. Airam Deuce OSMOLALITYon 12-18-2021 Osmolality [Osmolality] 271 mosm/kg Critically low 275-295 [facility] Comment on above: Performed By: #### O SMO ####[facility] Ixoxjrayuh13[address] [place], [place] [address]Dr. Airam Deuce CBC AUTO DIFFon 12-16-2021 BASO # 0.0 103/ul Normal 0.0-0.1 [facility] Comment on above: Performed By: #### C BC ####[facility] Vbpbrounpb17[address] [place], [place] [address]Dr. Selenaneil Tripathi Basophils/100 WBC (Bld) 0.6 % Normal 0.2-2.0 [facility] Comment on above: Performed By: #### C BC ####[facility] Wrtjgbpaue098[address] [place], [place] [address]Dr. Airam Tripathi EO # 0.1 103/ul Normal 0.0-0.7 [facility] Comment on above: Performed By: #### C BC ####[facility] Gyejvdiabd5680 [place] [address]Dr. Airam Tripathi Eosinophils/100 WBC (Bld) 2.1 % Normal 0.9-7.0 [facility] Comment on above: Performed By: #### C BC ####[facility] Hgbtffbqrp220[address] [place], [place] [address]Dr. Airam Tripathi Erythrocyte distribution width (RBC) [Ratio] 13.1 % Normal 11.0-15.0 [facility] Comment on above: Performed By: #### C BC ####[facility] Nfsnqfuwkv009[address] [place], [place] [address]Dr. Airam Tripathi Hematocrit (Bld) [Volume fraction] 33.8 % Critically low 36.0-48.0 [facility] Comment on above: Performed By: #### C BC ####[facility] Qjuftgvdxn47[address] [place], [place] [address]Dr. Airam Tripathi Hemoglobin (Bld) [Mass/Vol] 10.7 g/dL Critically low 12.0-16.0 [facility] Comment on above: Performed By: #### C BC ####[facility] Wmzlydwlnl[address] [place], [place] [address]Dr. Airam Tripathi IG # 0.02 10e3/ul Normal 0.00-0.03 [facility] Comment on above: Performed By: #### C BC ####[facility] Xiugyhzret7[address] [place], [place] [address]Dr. Airam Tripathi IG % 0.3 % Normal 0.0-0.5 [facility] Comment on above: Performed By: #### C BC ####[facility] Peqgcmcbmi3864[address] [place], [place] [address]DrKianna Airam Tripathi LYMPH # 1.2 103/ul Normal 1.2-3.8 [facility] Comment on above: Performed By: #### C BC ####[facility] Froyxdrwsi4194[address] [place], [place] [address]Dr. Airam Tripathi Lymphocytes/100 WBC (Bld) 17.3 % Critically low 20.5-60.0 [facility] Comment on above: Performed By: #### C BC ####[facility] Rrpxxqpqyz9003 [place] [address]Dr. Airam Tripathi MANUAL DIFF REQ NO Normal [facility] Comment on above: Performed By: #### C BC ####[facility] Mdwowfuadw6431 [place] [phone]. Airam Tripathi MCH (RBC) [Entitic mass] 30.2 pg Normal 26.7-34.0 [facility] Comment on above: Performed By: #### C BC ####[facility] Tpydsyuasu3748 [place] [address]Dr. Airam Tripathi MCHC (RBC) [Mass/Vol] 31.7 g/dL Normal 29.9-35.2 [facility] Comment on above: Performed By: #### C BC ####[facility] Wrolcgjpqg1389[address] [place], [place] [address]Dr. Airam Tripathi MCV (RBC) [Entitic vol] 95.5 fL Normal 81.0-99.0 [facility] Comment on above: Performed By: #### C BC ####[facility] Hlranikkzk60[address] [place], [place] [address]Dr. Airam Tripathi MONO # 0.5 103/ul Normal 0.3-0.8 [facility] Comment on above: Performed By: #### C BC ####[facility] Nwxumllhsb449[address] [place], [place] [address]Dr. Airam Tripathi Monocytes/100 WBC (Bld) 6.8 % Normal 1.7-12.0 [facility] Comment on above: Performed By: #### C BC ####[facility] Pljazuubaw49[address] [place], [place] [address]DrKianna Tripathi NEUT # 4.9 103/ul Normal 1.4-6.5 [facility] Comment on above: Performed By: #### C BC ####[facility] Soibzeylic32[address] [place], [place] [address]DrKianna Tripathi Neutrophils/100 WBC (Bld) 72.9 % Normal 43.0-75.0 [facility] Comment on above: Performed By: #### C BC ####[facility] Iearvrjxbg3107 [place] [address]Dr. Airam Tripathi Platelet mean volume (Bld) [Entitic vol] 9.0 fL Critically low 9.5-13.5 [facility] Comment on above: Performed By: #### C BC ####[facility] Uxcntewbml8976 [place] [address]DrKianna Tripathi PLT 297 103/ul Normal 150-450 [facility] Comment on above: Performed By: #### C BC ####[facility] Qlrpridlmh1050 [place] [address]Dr. Airam Tripathi RBC 3.54 106/ul Critically low 4.20-5.40 [facility] Comment on above: Performed By: #### C BC ####[facility] Qudohhsuof2501 [place] [address]DrKianna Tripathi WBC 6.8 103/ul Normal 4.0-11.0 [facility] Comment on above: Performed By: #### C BC ####[facility] Ddystzksha0504 [place] [address]DrKianna Tripathi PROF 14(COMP METB)on 022 Albumin [Mass/Vol] 3.2 g/dL Critically low 3.4-5.0 [facility] Comment on above: Performed By: #### C MP ####[facility] Fxxxgtqplu3261 [place] [address]DrKianna Tripathi Albumin/Globulin [Mass ratio] 1.0 {ratio} Normal [facility] Comment on above: Performed By: #### C MP ####[facility] Qlgisfstpk2004 [place] [address]DrKianna Tripathi ALP [Catalytic activity/Vol] 109 U/L Normal 46-116 [facility] Comment on above: Performed By: #### C MP ####[facility] Qpslikhvbo1270 [place] [phone] Tripathi ALT [Catalytic activity/Vol] 23 U/L Normal 14-59 [facility] Comment on above: Performed By: #### C MP ####[facility] Noezgbnwbt0613 [place] [phone]. Airam Tripathi Anion gap [Moles/Vol] 11.6 mmol/L Normal Th [facility] Comment on above: Performed By: #### C MP ####[facility] Ancskowkjw6561 [place] [phone]. Airam Tripathi AST [Catalytic activity/Vol] 24 U/L Normal 15-37 [facility] Comment on above: Performed By: #### C MP ####[facility] Etycxdzter4529 [place] [phone]. Airam Deuce Bilirubin [Mass/Vol] 0.2 mg/dL Normal 0.2-1.0 [facility] Comment on above: Performed By: #### C MP ####[facility] Fzyutprwta2230 [place] [phone]. Airam Deuce Calcium [Mass/Vol] 8.6 mg/dL Normal 8.5-10.1 [facility] Comment on above: Performed By: #### C MP ####[facility] Ggksiiftgt9290 [place] [phone]. Airam Deuce Chloride [Moles/Vol] 100 mmol/L Normal 98-107 [facility] Comment on above: Performed By: #### C MP ####[facility] Xvogbszsfx4544 [place] [phone]. Airam Deuce CO2 [Moles/Vol] 24.7 mmol/L Normal 21.0-32.0 [facility] Comment on above: Performed By: #### C MP ####[facility] Cbnvvsjlkp9392 [place] [phone]. Airam Deuce Creatinine [Mass/Vol] 1.11 mg/dL Critically high 0.55-1.02 [facility] Comment on above: Performed By: #### C MP ####[facility] Vcqmfzfetq1425 [place] [phone]. Airam Deuce EGFR-AF PANAMANIAN >60 Normal >=60 [facility] Comment on above: Performed By: #### C MP ####[facility] Ftwljmjvep1938 [place] [address]Dr. Airam Tripathi EGFR-NON AF PANAMANIAN 50 mL/min/1.73m2 Critically low >=60 [facility] Comment on above: Performed By: #### C MP ####[facility] Wqoszmzwtm4928 [place] [address]Dr. Airam Tripathi Globulin (S) [Mass/Vol] 3.1 g/dL Normal [facility] Comment on above: Performed By: #### C MP ####[facility] Zeehmhxatu4367[address] [place], [place] [address]Dr. Airam Tripathi Glucose [Mass/Vol] 79 mg/dL Normal 74-106 [facility] Comment on above: Performed By: #### C MP ####[facility] Rmnsxbrlwk9125[address] [place], [place] [address]Dr. Airam Tripathi Potassium [Moles/Vol] 5.3 mmol/L Critically high 3.5-5.1 [facility] Comment on above: Performed By: #### C MP ####[facility] Iprxexisui500[address] [place], [place] [address]Dr. Airam Tripathi Protein [Mass/Vol] 6.3 g/dL Critically low 6.4-8.2 [facility] Comment on above: Performed By: #### C MP ####[facility] Sbvcfzqszt9308[address] [place], [place] [address]Dr. Airam Tripathi Sodium [Moles/Vol] 131 mmol/L Critically low 136-145 [facility] Comment on above: Performed By: #### C MP ####[facility] Hksjhwcdhk74[address] [place], [place] [address]Dr. Airam Tripathi Urea nitrogen [Mass/Vol] 20.0 mg/dL Critically high 7.0-18.0 [facility] Comment on above: Performed By: #### C MP ####[facility] Niqkdcxymh8[address] [place], [place] [address]Dr. Airam Tripathi Urea nitrogen/Creatinine [Mass ratio] 18.0 mg/mg Normal [facility] Comment on above: Performed By: #### C MP ####[facility] Xifpapwaly99[address] [place] [address]Dr. Airam Tripathi OSMOLALITYon 12-09-2021 Osmolality [Osmolality] 279 mosm/kg Normal 275-295 [facility] Comment on above: Performed By: #### O SMO ####[facility] Ebpjbyuvip4052 [place] [address]Dr. Airam Tripathi CBC AUTO DIFFon 12-07-2021 BASO # 0.0 103/ul Normal 0.0-0.1 [facility] Comment on above: Performed By: #### C BC ####[facility] Xeuxrtwhgx3567[address] [place], [place] [address]Dr. Airam Deuce Basophils/100 WBC (Bld) 0.5 % Normal 0.2-2.0 [facility] Rehabilitation Comment on above: Performed By: #### C BC ####[facility] [address] [place], [place] [address]Dr. Airam Tripathi EO # 0.4 103/ul Normal 0.0-0.7 [facility] Comment on above: Performed By: #### C BC ####[facility] Z[address]zlynxk[address] [place], [place] [address]Dr. Airam Tripathi Eosinophils/100 WBC (Bld) 6.3 % Normal 0.9-7.0 [facility] Comment on above: Performed By: #### C BC ####[facility] Xuzdwafmdv[address] [place], [place] [address]Dr. Airam Tripathi Erythrocyte distribution width (RBC) [Ratio] 13.3 % Normal 11.0-15.0 [facility] Comment on above: Performed By: #### C BC ####[facility] [address]qdmvrxf[address] [place], [place] [address]Dr. Airam Tripathi Hematocrit (Bld) [Volume fraction] 29.5 % Critically low 36.0-48.0 [facility] Comment on above: Performed By: #### C BC ####[facility] Mrkvdxbikd[address] [place], [place] [address]Dr. Airam Tripathi Hemoglobin (Bld) [Mass/Vol] 9.1 g/dL Critically low 12.0-16.0 [facility] Comment on above: Performed By: #### C BC ####[facility] [address] [place] [address]DrKianna Tripathi IG # 0.04 10e3/ul Critically high 0.00-0.03 [facility] Comment on above: Performed By: #### C BC ####[facility] [address]jvuhirc[address] [place] [address]DrKianna Tripathi IG % 0.7 % Critically high 0.0-0.5 [facility] Comment on above: Performed By: #### C BC ####[facility] [address]qdm[address] [place] [address]DrKianna Tripathi LYMPH # 1.3 103/ul Normal 1.2-3.8 [facility] Comment on above: Performed By: #### C BC ####[facility] [address]uiixv[address] [place] [address]DrKianna Tripathi Lymphocytes/100 WBC (Bld) 20.9 % Normal 20.5-60.0 [facility] Comment on above: Performed By: #### C BC ####[facility] [address]lxsvx[address] [place] [address]DrKianna Tripathi MANUAL DIFF REQ NO Normal [facility] Comment on above: Performed By: #### C BC ####[facility] Tgasgzjrom[address] [place] [address]DrKianna Tripathi MCH (RBC) [Entitic mass] 30.1 pg Normal 26.7-34.0 [facility] Comment on above: Performed By: #### C BC ####[facility] [address]dxd[address] [place] [id number] Tripathi MCHC (RBC) [Mass/Vol] 30.8 g/dL Normal 29.9-35.2 [facility] Comment on above: Performed By: #### C BC ####[facility] Lynuzxmwcl[address] [place] [id number] Tripathi MCV (RBC) [Entitic vol] 97.7 fL Normal 81.0-99.0 [facility] Comment on above: Performed By: #### C BC ####[facility] [address]vcpdb[address] [place] [address]Dr. Airam Tripathi MONO # 0.4 103/ul Normal 0.3-0.8 [facility] Comment on above: Performed By: #### C BC ####[facility] [address]ftvoigws[address] [place] [address]Dr. Airam Tripathi Monocytes/100 WBC (Bld) 6.6 % Normal 1.7-12.0 [facility] Comment on above: Performed By: #### C BC ####[facility] [address]jthyb[address] [place] [address]Dr. Airam Tripathi NEUT # 4.0 103/ul Normal 1.4-6.5 [facility] Comment on above: Performed By: #### C BC ####[facility] [address]clf[address] [place], [place] [address]Dr. Airam Tripathi Neutrophils/100 WBC (Bld) 65.0 % Normal 43.0-75.0 [facility] Comment on above: Performed By: #### C BC ####[facility] [address]wzcvdolix35[address] [place] [address]Dr. Airam Tripathi Platelet mean volume (Bld) [Entitic vol] 9.4 fL Critically low 9.5-13.5 [facility] Comment on above: Performed By: #### C BC ####[facility] [address]otswle[address] [place] [address]Dr. Airam Tripathi PLT 224 103/ul Normal 150-450 [facility] Comment on above: Performed By: #### C BC ####[facility] [address]usibicmb[address] [place] [id number]. Airam Tripathi RBC 3.02 106/ul Critically low 4.20-5.40 [facility] Comment on above: Performed By: #### C BC ####[facility] [address]iefgiaci[address] [place] [address]Dr. Airam Tripathi WBC 6.1 103/ul Normal 4.0-11.0 [facility] Comment on above: Performed By: #### C BC ####[facility] V[address]colsdsr[address] [place] [address]Dr. Airam Tripathi PROF 14(COMP METB)on 022 Albumin [Mass/Vol] 2.8 g/dL Critically low 3.4-5.0 [facility] Comment on above: Performed By: #### C MP ####[facility] [address]qgbchnipp[address] [place] [address]Dr. Airam Tripathi Albumin/Globulin [Mass ratio] 1.1 {ratio} Normal [facility] Comment on above: Performed By: #### C MP ####[facility] M[address]jhiblbd[address] [place], [place] [address]Dr. Airam Tripathi ALP [Catalytic activity/Vol] 116 U/L Normal 46-116 [facility] Comment on above: Performed By: #### C MP ####[facility] Kkwihknotj[address] [place], [place] [address]Dr. Airam Tripathi ALT [Catalytic activity/Vol] 23 U/L Normal 14-59 [facility] Comment on above: Performed By: #### C MP ####[facility] Rxprljlfzl07[address] [place], [place] [address]Dr. Airam Tripathi Anion gap [Moles/Vol] 12.1 mmol/L Normal Th [facility] Comment on above: Performed By: #### C MP ####[facility] Hbhdqzyvua[address] [place], [place] [address]Dr. Airam Tripathi AST [Catalytic activity/Vol] 23 U/L Normal 15-37 [facility] Comment on above: Performed By: #### C MP ####[facility] Olafcqowdb[address] [place], [place] [address]Dr. Airam Tripathi Bilirubin [Mass/Vol] 0.2 mg/dL Normal 0.2-1.0 [facility] Comment on above: Performed By: #### C MP ####[facility] Bdmgeowadh8[address] [place], [place] [address]Dr. Airam Tripathi Calcium [Mass/Vol] 8.1 mg/dL Critically low 8.5-10.1 Th [facility] Comment on above: Performed By: #### C MP ####[facility] [address]kmjooscvp28[address] [place] [address]Dr. Airam Tripathi Chloride [Moles/Vol] 105 mmol/L Normal 98-107 [facility] Comment on above: Performed By: #### C MP ####[facility] [address]pehlvacw60[address] [place] [id number]. Airam Tripathi CO2 [Moles/Vol] 22.1 mmol/L Normal 21.0-32.0 [facility] Comment on above: Performed By: #### C MP ####[facility] [address]ernkzbrtd95[address] [place] [address]Dr. Airam Tripathi Creatinine [Mass/Vol] 1.06 mg/dL Critically high 0.55-1.02 [facility] Comment on above: Performed By: #### C MP ####[facility] Ecexnmwoto[address] [place], [place] [address]Dr. Airam Deuce EGFR-AF PANAMANIAN >60 Normal >=60 [facility] Comment on above: Performed By: #### C MP ####[facility] Tqkndxinqr[address] [place], [place] [address]Dr. Airam Deuce EGFR-NON AF PANAMANIAN 53 mL/min/1.73m2 Critically low >=60 [facility] Comment on above: Performed By: #### C MP ####[facility] [address]okolcwrr[address] [place] [address]Dr. Airam Deuce Globulin (S) [Mass/Vol] 2.6 g/dL Normal [facility] Comment on above: Performed By: #### C MP ####[facility] Sxzoggkios[address] [place] [address]Dr. Airam Deuce Glucose [Mass/Vol] 109 mg/dL Critically high 74-106 [facility] Comment on above: Performed By: #### C MP ####[facility] [address]ucdtztcdr24[address] [place] [address]Dr. Airam Tripathi Potassium [Moles/Vol] 4.2 mmol/L Normal 3.5-5.1 [facility] Comment on above: Performed By: #### C MP ####[facility] [address]umpgdd[address] [place] [id number]. Airam Tripathi Protein [Mass/Vol] 5.4 g/dL Critically low 6.4-8.2 Th [facility] Comment on above: Performed By: #### C MP ####[facility] [address]tiksqjnrp08[address] [place] [id number]. Airam Tripathi Sodium [Moles/Vol] 135 mmol/L Critically low 136-145 Th [facility] Comment on above: Performed By: #### C MP ####[facility] Aequixlesy[address] [place] [id number]. Airam Tripathi Urea nitrogen [Mass/Vol] 15.0 mg/dL Normal 7.0-18.0 [facility] Comment on above: Performed By: #### C MP ####[facility] [address]mezayyln[address] [place] [address]Dr. Airam Tripathi Urea nitrogen/Creatinine [Mass ratio] 14.2 mg/mg Normal [facility] Comment on above: Performed By: #### C MP ####[facility] Mpepftgigk67[address] [place] [id number]. Airam Tripathi Operative Reporton Operative Report MR#: [id number] [facility] Pt. Name: Mabel Moser Room #: [...] subscapularis. 3. Right shoulder proximal biceps tenotomy. APPOINTMENT SETTER: Alex Serra M.D. ANESTHESIA: General. INDICATIONS: The [...] Reza M.D. Date Trans: 08/19/2021 11:37 A/carter DN_[id number] cc: Yuri Santana M.D. [address] [facility] [address] Normal [facility] POC GLUCOSE LABon 08-19-2021 Glucose [Mass/Vol] 77 mg/dL Normal 70-100 [facility] Comment on above: Performed By: #### 8 5499 #### [facility] [address] [facility] [address] [address] 04-05-2021 CNPN Telephone (ANDREW) -- MABEL MOSER ([id number]) 1960 F Date Time Provider Department 04/05/21 YEVGENIY FORD During your visit today, we recorded the following information about you: Chana Gallegos [facility] 04/05/2021 7:57 AM Signed Records faxed to the cancer center at [facility]. Patient to follow with Dr. Liu. [...] Encounter Status:Closed by CHANA LEE on 04/05/21 [facility] OBSOLETEon 01-11-2021 OBSOLETE Refill (HEMASA) -- MABEL MOSER ([id number]) 1960 F Date Time Provider Department 01/11/21 [...] kidney disease) stage 3, GFR 30-59 ml/min ([facility]) [N18.30] Order(s):cyanocobalamin 1,000 mcg/mLINJECT 1 ML [...] Status:Closed by YEVGENIY FORD on 01/12/21 Normal [facility] Vital Signs Date Time Vital Sign Value Performing Clinician Facility 03-26-2024 11:47-0400 Body mass index (BMI) [Ratio] 41.1 kg/m2 [facility] 03-26-2024 11:47-0400 Diastolic blood pressure 77 mm[Hg] [facility] 03-26-2024 11:47-0400 Heart rate 81 /min [facility] 03-26-2024 11:47-0400 Respiratory rate 18 /min [facility] 03-26-2024 11:47-0400 SaO2% (BldA) [Mass fraction] 92 % [facility] 03-26-2024 11:47-0400 Systolic blood pressure 140 mm[Hg] [facility] 03-26-2024 08:52-0400 Body height 157.48 cm [facility] 03-26-2024 08:52-0400 Body temperature 98.1 [degF] [facility] 03-26-2024 08:52-0400 Body weight 102.05 kg [facility] 03-05-2024 13:52-0400 Blood Pressure Location Migel AHUMADAL [facility] 03-05-2024 13:52-0400 Diastolic blood pressure 80 mm[Hg] Migel AHUMADAL [facility] 03-05-2024 13:52-0400 Heart rate 77 /min Migel AHUMADAL [facility] 03-05-2024 13:52-0400 Respiratory rate 16 /min Migel AHUMADAL [facility] 03-05-2024 13:52-0400 Systolic blood pressure 116 mm[Hg] Migel AHUMADAL [facility] 07-03-2023 12:00-0500 Body temperature 97.9 [degF] MD Yuri Santana Work Phone: [facility] 07-03-2023 12:00-0500 Diastolic blood pressure 71 mm[Hg] MD Yuri Santana Work Phone: [facility] 07-03-2023 12:00-0500 Heart rate 68 /min MD Yuri Santana Work Phone: [facility] 07-03-2023 12:00-0500 Respiratory rate 16 /min MD Yuri Santana Work Phone: [facility] 07-03-2023 12:00-0500 SaO2% (BldA) [Mass fraction] 100 % MD Yuri Santana Work Phone: [facility] 07-03-2023 12:00-0500 Systolic blood pressure 121 mm[Hg] MD Yuri Santana Work Phone: [facility] 07-03-2023 04:49-0500 Body weight 85.8 kg MD Yuri Santana Work Phone: [facility] 06-30-2023 14:44-0500 Body height 157.48 cm MD Yuri Santana Work Phone: [facility] 04-04-2023 16:20-0400 Body height 158.75 cm Raeann Tagoodieskendalljohnnie Other [employer] Other 04-04-2023 16:20-0400 Body mass index (BMI) [Ratio] 31.46 kg/m2 Raeann TagoodieskendalliZettle Other [employer] Other 04-04-2023 16:20-0400 Body temperature 98 [degF] Raeann Shopsys Other [employer] Other 04-04-2023 16:20-0400 Body weight 79.29 kg Raeann Shopsys Other [employer] Other 04-04-2023 16:20-0400 Diastolic blood pressure 81 mm[Hg] Azariel Shopsys Other [employer] Other 04-04-2023 16:20-0400 Respiratory rate 18 /min Raeann Kirkpatrick Other [facility] [employer] Other 04-04-2023 16:20-0400 SaO2% (BldA) [Mass fraction] 98 % Raeann Kirkpatrick Other [facility] [employer] Other 04-04-2023 16:20-0400 Systolic blood pressure 133 mm[Hg] Raeann Kirkpatrick Other [facility] [employer] Other 10-28-2022 22:23-0400 Body temperature 97.4 [degF] MD Yuri Santana Work Phone: [facility] 10-28-2022 22:00-0400 Diastolic blood pressure 74 mm[Hg] MD Yuri Santana Work Phone: [facility] 10-28-2022 22:00-0400 Heart rate 72 /min MD Yuri Santana Work Phone: [facility] 10-28-2022 22:00-0400 Respiratory rate 20 /min MD Yuri Santana Work Phone: [facility] 10-28-2022 22:00-0400 SaO2% (BldA) [Mass fraction] 97 % MD Yuri Santana Work Phone: [facility] 10-28-2022 22:00-0400 Systolic blood pressure 169 mm[Hg] MD Yuri Santana Work Phone: [facility] 10-28-2022 17:54-0400 Body height 157.48 cm MD Yuri Santana Work Phone: [facility] 10-28-2022 17:54-0400 Body weight 83.7 kg MD Yuri Santana Work Phone: [facility] 09-27-2022 12:00-0400 Body height 158.75 cm Raeann Kirkpatrick Other [employer] Other 09-27-2022 12:00-0400 Body mass index (BMI) [Ratio] 31.78 kg/m2 Raeann Mishras Other [employer] Other 09-27-2022 12:00-0400 Body temperature 96.1 [degF] Raeann Mishras Other [employer] Other 09-27-2022 12:00-0400 Body weight 80.11 kg Raeann Mishras Other [employer] Other 09-27-2022 12:00-0400 Diastolic blood pressure 82 mm[Hg] Raeann Mishras Other [employer] Other 09-27-2022 12:00-0400 Respiratory rate 18 /min Raeann Mishras Other [employer] Other 09-27-2022 12:00-0400 SaO2% (BldA) [Mass fraction] 99 % Raeann Mishras Other [employer] Other 09-27-2022 12:00-0400 Systolic blood pressure 140 mm[Hg] Raeann Mishras Other [employer] Other 04-12-2022 14:00-0400 Body height 158.75 cm Raeann Mishras Other [employer] Other 04-12-2022 14:00-0400 Body mass index (BMI) [Ratio] 30.13 kg/m2 Raeann Mishras Other [employer] Other 04-12-2022 14:00-0400 Body temperature 97.6 [degF] Raeann Kirkpatrick Other [employer] Other 04-12-2022 14:00-0400 Body weight 75.93 kg Raeann Kirkpatrick Other [employer] Other 04-12-2022 14:00-0400 Diastolic blood pressure 95 mm[Hg] Raeann Kirkpatrick Other [employer] Other 04-12-2022 14:00-0400 Respiratory rate 18 /min Raeann Kirkpatrick Other [employer] Other 04-12-2022 14:00-0400 SaO2% (BldA) [Mass fraction] 98 % Raeann Kirkpatrick Other [employer] Other 04-12-2022 14:00-0400 Systolic blood pressure 175 mm[Hg] Raeann Kirkpatrick Other [employer] Other 06-16-2021 16:20-0500 Body height 158.75 cm [place] Other [employer] Other 06-16-2021 16:20-0500 Body mass index (BMI) [Ratio] 30.88 kg/m2 [place] Other [employer] Other 06-16-2021 16:20-0500 Body temperature 96.4 [degF] [place] Other [employer] Other 06-16-2021 16:20-0500 Body weight 77.84 kg [place] Rascongerald Other [employer] Other 06-16-2021 16:20-0500 Diastolic blood pressure 88 mm[Hg] [place] Other [employer] Other 06-16-2021 16:20-0500 Respiratory rate 18 /min [place] Other [employer] Other 06-16-2021 16:20-0500 SaO2% (BldA) [Mass fraction] 99 % [place] Other [employer] Other 06-16-2021 16:20-0500 Systolic blood pressure 137 mm[Hg] [place] Other [employer] Other Encounters Encounter Date Encounter Type Care Provider Facility Start: 09-09-2024 End: 09-09-2024 ambulatory [facility] Start: 09-09-2024 End: 09-09-2024 ambulatory [facility] Start: 08-08-2024 End: 08-08-2024 [facility] Start: 05-31-2024 ambulatory [facility] Start: 04-29-2024 ambulatory [facility] Start: 04-17-2024 ambulatory [facility] Start: 03-27-2024 End: 03-27-2024 ambulatory [facility] Start: 03-26-2024 End: 03-26-2024 ambulatory [facility] Work Phone: Start: 03-26-2024 End: 03-26-2024 Patient encounter procedure [facility] Eloy Work Phone: Start: 03-05-2024 End: 03-05-2024 ambulatory Migel MCKINNEY Facility:[facility] Start: 03-05-2024 End: 03-05-2024 Patient encounter procedure Migel MCKINNEY [facility] Sophie Start: 01-22-2024 End: 01-30-2024 [facility] Start: 12-21-2023 End: 12-21-2023 ambulatory [facility] Start: 10-13-2023 ambulatory YURI Covington Kristen [facility] Start: 09-30-2023 End: 10-01-2023 [facility] Start: 07-11-2023 End: 07-11-2023 ambulatory Aziz Bakkendalls Other [employer] Other Start: 07-11-2023 Telephone encounter Azariel Mishras [facility] Start: 06-29-2023 End: 07-03-2023 Evaluation and management of inpatient Jim Randhawa Facility:[facility] Start: 06-29-2023 End: 07-03-2023 Evaluation and management of inpatient MD Yuri Santana Work Phone: [facility] Work Phone: Start: 04-04-2023 End: 04-04-2023 ambulatory Aziz Bakkendalls Other [employer] Other Start: 04-04-2023 Office outpatient visit 25 minutes Aziz Bakhous [facility] Start: 04-03-2023 End: 04-03-2023 ambulatory Aziz Bakhous Other [employer] Other Start: 04-03-2023 Telephone encounter Aziz Bakhous [facility] Start: 12-12-2022 End: 12-12-2022 ambulatory Aziz Bakhous Other [employer] Other Start: 12-12-2022 Telephone encounter Raeann Kirkpatrick [facility] Start: 12-08-2022 End: 12-08-2022 ambulatory Raeann Kirkpatrick Other [employer] Other Start: 12-08-2022 Telephone encounter Raeann Kirkpatrick [...] Emergency department patient visit Favian Helm Facility:[facility] Start: 10-28-2022 End: 10-28-2022 Emergency department patient visit MD Yuri Santana Work Phone: [facility] Work Phone: Start: 10-27-2022 End: 10-28-2022 [...] 09-27-2022 End: 09-27-2022 ambulatory Raeann Kirkpatrick Other [employer] Other Start: 09-27-2022 Office outpatient visit 25 [...] 08-23-2022 End: 08-23-2022 ambulatory Sue Leiva Other [employer] Other Start: 08-23-2022 Office outpatient ne w 30 minutes Sue Leiva [facility] Start: 08-16-2022 End: 08-17-[address] YURI SANTANA . Facility:[facility] Start: 08-06-2022 End: 08-06-2022 ambulatory NIKKIE DIAB . Facility:[facility] Start: 07-27-2022 End: 07-28-[address] YURI ASNTANA . Facility:[facility] Start: 07-27-2022 End: 08-16-[address] YURI SANTANA . Facility:[facility] Start: 06-29-2022 End: 07-21-[address] YURI SANTANA . Facility:[facility] Start: 06-16-2022 End: 06-18-2022 Evaluation and management of inpatient DR YRUI SANTANA . Facility:[facility] Start: 06-07-2022 End: 06-08-2022 [...] 04-12-2022 End: 04-12-2022 ambulatory Raeann Kirkpatrick Other [employer] Other Start: 04-12-2022 Office outpatient visit 25 minutes Raeann Kirkpatrick [facility] Start: 04-06-[address] YURI SANTANA . Facili ty:[facility] Start: 03-31-2022 End: 04-20-[address] YURI SANTANA . Facility:[facility] Start: 03-03-2022 End: 03-22-[address] YURI ASNTANA . Facility:[facility] Start: 01-27-2022 End: 01-28-[address] YURI SANTANA . Facility:[facility] Start: 01-27-2022 End: 02-22-[address] YURI SANTANA . Facility:[facility] Start: 01-19-2022 End: 01-20-2022 ambulatory ROBERT JOHNSTON Facility:[facility] Start: 01-11-2022 End: 01-11-[address] YURI SANTANA . Facility:[facility] Start: 01-10-2022 End: 01-11-2022 ambulatory Robert Johnston Facility:[facility] Start: 01-06-2022 End: 01-07-[address] YURI SANTAAN . Facility:[facility] Start: 12-30-2021 End: 01-19-[address] YURI SANTANA . Facility:[facility] Start: 12-23-2021 End: 12-24-2021 ambulatory NNAMDI VELIZIS . Facility: Start: 12-07-2021 End: 12-22-[address] YURI SANTANA . Facility: Start: 12-07-2021 End: 12-07-[address] YURI SANTANA . Facility: Start: 08-19-2021 End: 08-20-2021 ambulatory CARLOS REZA Facility:[facility] Start: 06-16-2021 End: 06-16-2021 ambulatory [place] Other [email or web address] Other Start: 06-16-2021 Office outpatient visit 25 minutes [place] [facility] Start: 01-14-2019 End: 01-14-2019 Patient encounter procedure [facility] Start: 12-03-2018 End: 12-03-2018 Patient encounter procedure [facility] Procedures Date Procedure Procedure Detail Performing [...] qualifier value) Migel NILL Arthroplasty of knee Imgel NILL Cardiac catheterization Jorge aetad NILL Cervical arthrodesis Migel NILL Cervical laminectomy Migel NILL Cholecystectomy Migel NILL Removal of implantab le venous access port Migel NILL Repair of musculoten dinous cuff of shoulder Migel NILL Plan of Treatment Date Care Activity Detail Author Start: 07-03-2023 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 Blood chemistry [facility] Patient Education [facility] Work Phone: Patient referral [facility] Work Phone: Renal function 2000 panel - Serum or Plasma [facility] Immunizations Immunization Date Immunization Notes Care Provider Fa radha 03-11-2023 influenza virus vaccine, unspecified formulation Migel AHUMADAL [facility] 04-07-2022 SARS-CoV-2 (COVID-19 ) [id number] Migel AHUMADAL [facility] 09-24-2020 SARS-CoV-2 (COVID-19 ) mRNA-1273 vaccine Migel AHUMADAL [facility] Comment on above: Result Comment: 2023: [id number] 08-27-2020 SARS-CoV-2 (COVID-19 ) mRNA-1273 vaccine Migel MCKINNEY [facility] [place] 05-18-2011 pneumococcal conjuga te vaccine, 13 valent Migel MCKINNEY [facility] NEGATED: Highlighted row has not occurred!09-16-2020 influenza virus vaccine, unspecified formulation Migel MCKINNEY [facility] Payers Date Payer Category Payer Medicare [id number] 2022 Self-pay [id number] 2017 Medicare [id number] 2017 Unknown [id number] 1960 Unknown [id number] 2.16.8 [id number] 1960 Unknown [id number] 2.16.8 [id number] 1960 Unknown [id number] 2.16.8 [id number] 1960 Unknown [id number] 2.16.8 [id number] 1960 Unknown [id number] 2.16.84 [id number] 1960 Unknown [id number] 2.16.84 0.1.711697.3.579.2.593 1960 Unknown [id number] 2.16.84 0.1.166848.3.579.2.593 1960 Unknown [id number] 2.16.84 0.1.122417.3.579.2.593 1962 Unknown [id number] 2.16.84 0.1.351506.3.579.2.593 1962 Unknown [id number] 2.16.84 0.1.934648.3.579.2.593 1962 Unknown [id number] 2.16.84 0.1.405272.3.579.2.593 1962 Unknown [id number] 2.16.84 0.1.346102.3.579.2.593 1962 Unknown [id number] 2.16.84 0.1.886235.3.579.2.593 1962 Unknown [id number] 2.16.84 0.1.242485.3.579.2.593 1962 Unknown [id number] 2.16.84 0.1.814910.3.579.2.593 1962 Unknown [id number] 2.16.84 0.1.182462.3.579.2.593 1962 Unknown [id number] 2.16.84 0.1.963313.3.579.2.593 1962 Unknown [id number] 2.16.84 0.1.191262.3.579.2.593 1962 Unknown [id number] 2.16.84 0.1.798878.3.579.2.593 1962 Unknown [id number] 2.16.84 0.1.995093.3.579.2.593 1962 Unknown [id number] 2.16.84 0.1.028160.3.579.2.593 1962 Unknown [id number] 2.16.84 0.1.624497.3.579.2.593 1962 Unknown [id number] 2.16.84 0.1.365658.3.579.2.593 1962 Unknown [id number] 2.16.84 0.1.323723.3.579.2.593 1962 Unknown [id number] 2.16.84 0.1.908822.3.579.2.593 1962 Unknown [id number] 2.16.84 0.1.818142.3.579.2.593 1962 Unknown [id number] 2.16.84 0.1.784724.3.579.2.593 1962 Unknown [id number] 2.16.84 0.1.297187.3.579.2.593 1962 Unknown [id number] 2.16.84 0.1.126643.3.579.2.593 1962 Unknown [id number] 2.16.84 0.1.788255.3.579.2.593 1962 Unknown [id number] 2.16.84 0.1.501908.3.579.2.593 1962 Unknown [id number] 2.16.84 0.1.929381.3.579.2.593 1962 Unknown [id number] 2.16.84 0.1.244392.3.579.2.593 1962 Unknown [id number] 2.16.84 0.1.938688.3.579.2.593 1962 Unknown [id number] 2.16.84 0.1.851514.3.579.2.593 1962 Unknown [id number] 2.16.84 0.1.026550.3.579.2.593 1962 Unknown [id number] 2.16.84 0.1.596025.3.579.2.593 1962 Unknown [id number] 2.16.84 0.1.097636.3.579.2.593 1962 Unknown [id number] 2.16.84 0.1.618594.3.579.2.593 1962 Unknown [id number] 2.16.84 0.1.633771.3.579.2.593 1962 Unknown [id number] 2.16.84 0.1.464453.3.579.2.593 1962 Unknown [id number] 2.16.84 0.1.928553.3.579.2.593 1962 Unknown [id number] 2.16.84 0.1.679787.3.579.2.593 1962 Unknown [id number] 2.16.84 0.1.281739.3.579.2.593 1962 Unknown [id number] 2.16.84 0.1.512369.3.579.2.593 1962 Unknown [id number] 2.16.84 0.1.773411.3.579.2.593 1962 Unknown [id number] 2.16.84 0.1.252076.3.579.2.593 1962 Unknown [id number] 2.16.84 0.1.859815.3.579.2.593 1962 Unknown [id number] 2.16.84 0.1.398950.3.579.2.593 1962 Unknown [id number] 2.16.84 0.1.245060.3.579.2.593 1962 Unknown [id number] 2.16.8 40.1.238669.3.579.2.1286 1962 Unknown [id number] 2.16.8 40.1.998605.3.579.2.727 1962 Unknown [id number] 2.16. 840.1.265058.3.579.2.175 1962 Unknown [id number] 2.16. 840.1.834231.3.579.2.175 1962 Unknown [id number] 2.16.8 40.1.286032.3.579.2.1286 1962 Unknown [id number] 2.16.8 40.1.797213.3.579.2.1286 1962 Unknown [id number] 2.16.8 40.1.643779.3.579.2.1286 1962 Unknown [id number] 2.16.8 40.1.800978.3.579.2.1286 1957 Medicaid [id number] Unknown [id number] 2.1 6.840.1.427413.19 Unknown Aron BC/HILARIA [id number] Unknown [id number] 2.16.8 40.1.285411.3.579.2.531 Unknown [id number] 2.16.8 40.1.155420.3.579.2.531 Social History Date Type Detail Facility Unknown if ever smoked Hypecal Other Sex Assigned At [facility] Start: 10-28-2022 End: 03-26-2024 Tobacco smoking status NHIS Never smoked tobacco (finding) [facility] Start: 1960 Sex Assigned At Female F [facility] Tobacco smoking status Never [facility] Goals Date Patient Goal Desired Activity /State Functional Status Date Assessment Result Facility 03-05-2024 Functional Status N/A [facility] 07-03-2023 Functional status Patient at [facility] Work Phone: Mental Status Date Assessment Result Facility 07-03-2023 Cognitive function Cognitive Sta tus Patient at Baseline [facility] Work Phone: Clinical Notes 06-16-2021 to 09-09-2024 [...] Anxiety Arthritis Asthma CHF (congestive heart failure) ([facility]) Coronary artery disease Depression Gastroenteritis Heart valve disease Hypertension Kidney failure Lumbar spondylolysis Stroke ([facility]) Objective General: BMI 41.34 General: No acute [...] satisfaction. Pepito Almeida MD Orthopedic Surgery, PGY-5 [facility] Pager: [phone] 09/09/24 This note was created with the [...] be an additional personal documentation from me. [facility] 03-27-2024 Note [place] Cardiology - [facility] Subjective Mabel Moser is a 64 y.o. year old female patient being seen for 3 mo follow up HFpEF, hypertension, and mild pulmonary hypertension. She was admitted last month to [facility] for CHF and fluid overload. She was [...] Bilateral hearing loss Chronic obstructive pulmonary disease ([facility]) CKD (chronic kidney disease) stage 3, GFR 30-59 ml/min ([facility]) Closed fracture of trochanter of femur ([facility]) Clostridium difficile colitis Coronary arteriosclerosis Diffuse thyroid 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 thyrotoxicosis Fluid overload Dehydration Cortical age-related cataract of left eye COVID-19 Displacement of lumbar intervertebral disc without myelopathy Edema of lower extremity Edema Orthopnea Dyspnea Endogenous obesity Essential tremor ACC/AHA stage C heart failure with preserved ejection fraction ([facility]) H/O gastric bypass Gouty arthropathy Gastroesophageal reflux disease Full thickness rotator cuff tear Fibromyalgia Low back pain Hip pain Hyperparathyroidism due to renal insufficiency ([facility]) Hypocalcemia Hypertensive disorder Hypoglycemia Hyponatremia Hypothyroidism Impingement syndrome of shoulder region Insomnia Anemia due to vitamin B12 deficiency Pulmonary hypertension ([facility]) Other fatigue Osteoarthritis of knee Morbid (severe) obesity due to excess calories ([facility]) Left atrial enlargement Lumbosacral neuritis Lumbosacral spondylosis without myelopathy Intractable migraine without status migrainosus Migraine Rheumatic tricuspid valve regurgitation Vitamin D deficiency Tympanic membrane perforation, right Transient ischemic attack Thoracic neuritis Tear of right rotator cuff Swallowing problem Sunburn of second degree Status post tympanoplasty Sprain of shoulder Seizure disorder ([facility]) Polyneuropathy associated with critical illness ([facility]) Polyneuropathy Osteoarthritis of spine with radiculopathy, lumbar region Obesity (BMI 30.0-34.9) Lumbar paraspinal muscle spasm Lateral femoral cutaneous neuropathy, left Internal derangement of right shoulder History of total right knee replacement Hemiparesis, left ([facility]) Hemiparesis due to old stroke (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) Pre-operative cardiovascular examination Acute on chronic systolic CHF (congestive heart failure) ([facility]) History of CVA in adulthood Hyperkalemia Hypomagnesemia Metabolic acidosis LEEANN (acute kidney injury) ([facility]) Cardiorenal disease Acute heart failure ([facility]) Polypharmacy Cerebral artery occlusion with cerebral infarction ([facility]) Chronic CHF (congestive heart failure) ([facility]) Fall at home, initial encounter Irritable [...] past she was admitted to [facility] in 2019 with fluid overload and responded [...] severely elevated r (more content not included)... [facility] 03-05-2024 Note General Surgery Offi ce/Clinic [...] tab(s), Oral, BID butorphanol 10 mg/mL Nasal Kenneth, 1 spray(s), Nasal, Daily, PRN cyanocobalamin 1000 [...] BID Fioricet or (more content not included)... [facility] Comment on above: Result Comment: Elec tronically Signed By: FAYE ASCENCIO, Migel Cruz\Date and Time Signed: 03/05/24 14:27 EDT 12-21-2023 Note [place] Cardiology - [facility] Subjective Mabel Moser is a 63 y.o. [...] kidney disease) stage 3, GFR 30-59 ml/min ([facility]) Closed fracture of trochanter of femur ([facility]/HCC) Clostridium difficile colitis Coronary arteriosclerosis Diffuse thyroid 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 thyrotoxicosis Fluid overload Dehydration Cortical age-related cataract of left eye COVID-19 Displacement of lumbar intervertebral disc without myelopathy Edema of lower extremity Edema Orthopnea Dyspnea Endogenous obesity Essential tremor ACC/AHA stage C heart failure with preserved ejection fraction ([facility]) H/O gastric bypass Gouty arthropathy [...] on chronic systolic CHF (congestive heart failure) ([facility]/H[facility]) History of CVA in adulthood Hyperkalemia Hypomagnesemia Metabolic acidosis LEEANN (acute kidney injury) ([facility]) Cardiorenal disease Acute heart failure ([facility]/H[facility]) Polypharmacy Cerebral artery occlusion with cerebral infarction ([facility]/H[facility]) Chronic CHF (congestive heart failure) ([facility]) Fall at home, initial encounter Irritable bowel syndrome Restless leg syndrome Traumatic closed fracture of C2 vertebra with minimal displacement, initial encounter ([facility]) Family History Family history unknown: Yes Social History Tobacco Use Smoking status: Never Smokeless tobacco: Never Substance Use Topics Alcohol use: Not Currently Drug use: Not Currently HPI Mabel is seen in follow-up. She is a 63-year-old woman with prior history of obesity status post bariatric surgery in 1999. In the past she was admitted to [facility] in 2019 with fluid overload and responded [...] recommended to t (more content not included)... [facility] 07-03-2023 Progress note Note Date/Time July 03, 2023 12:18pm [facility] [address] [place] [address] Nephrology Progress Note Signed Patient: Mabel Moser MR#: [id number] : 1960 Acct:[id number] Age/Sex: 63 / F Adm Date: 4 Loc: Room: [address] [place] [address] Type: ADM IN Attending Dr: Jim Randhawa [...] 50 Mg Tablet) 150 mg PO QHS [facility] Stop: 06/29/24 21:59 Last Admin: 07/02/23 21:00 Dose: 150 mg Aripiprazole (Aripiprazole 2 Mg Tablet) 2 mg PO DAILY [facility] Stop: 06/29/24 08:59 Last Admin: 07/03/23 08:13 Dose: 2 mg Bisacodyl (Bisacodyl 5 Mg Tablet.) 10 mg PO DAILY PRN PRN Reason: Constipation Stop: 06/28/24 21:34 Bumetanide (Bumetanide 1 Mg/4 Ml Vial) 1 mg IV-PUSH BID@0800,1600 [facility] Stop: 06/29/24 07:59 Last Admin: 07/03/23 08:14 Dose: 1 mg Calcium Acetate (Calcium Acetate 667 Mg Capsule) 667 mg PO BID.WITH.MEALS [facility] Stop: 06/29/24 07:59 Last Admin: 07/03/23 08:13 Dose: 667 mg Duloxetine HCl (Duloxetine 60 Mg Capsule.Dr) 120 mg PO DAILY [facility] Stop: 06/29/24 08:59 Last Admin: 07/03/23 08:13 Dose: 120 mg Fentanyl (Fentanyl Patch 100 Mcg/Hour Patch.Td72) 100 mcg TRANSDERML Q72H [facility]; Protocol Last Admin: 07/03/23 08:12 Dose: 100 mcg Ferrous Sulfate (Ferrous Sulfate 324 Mg Tablet.Dr) 324 mg PO DAILY [facility] Stop: 06/29/24 08:59 Last Admin: 07/03/23 08:13 Dose: 324 mg Gabapentin (Gabapentin 100 Mg Capsule) 100 mg PO TID [facility] Stop: 06/29/24 08:59 Last Admin: 07/03/23 08:13 Dose: 100 mg Guaifenesin/Dextromethorphan (Guaif/Dextromethorphan Syrup 10 Ml Udc) 10 ml PO Q8H PRN PRN Reason: Cough Stop: 06/28/24 21:34 Heparin Sodium (Porcine) (Heparin 5,000 Unit/Ml Vial) 5,000 unit SUBCUT Q12HR [facility] Stop: 06/29/24 08:59 Last Admin: 07/03/23 08:14 Dose: 5,000 unit Levothyroxine Sodium (Levothyroxine 100 Mcg Tablet) 100 mcg PO DAILY@0630 [facility] Stop: 06/29/24 06:29 Last Admin: 07/03/23 06:23 Dose: 100 mcg Linaclotide (Linaclotide 290 Mcg Capsule) 290 mcg PO Q48HR [facility] Stop: 06/29/24 08:59 Last Admin: 07/02/23 08:59 Dose: 290 mcg Liothyronine Sodium (Liothyronine 25 Mcg Tablet) 25 mcg PO DAILY@0630 [facility] Stop: 06/29/24 10:59 Last Admin: 07/03/23 06:23 Dose: 25 mcg Loratadine (Loratadine 10 Mg Tablet) 10 mg PO DAILY PRN PRN Reason: Allergy Symptoms Stop: 06/29/24 06:54 Melatonin (Melatonin 5 Mg Tablet) 5 mg PO QHS PRN PRN Reason: Insomnia Stop: 06/28/24 21:34 Metoprolol Tartrate (Metoprolol Tartrate 25 Mg Tablet) 25 mg PO BID [facility] Stop: 06/29/24 20:59 Last Admin: [...] signed by Raeann Kirkpatrick MD> 07/03/23 1218 [facility] Work Phone: 1(303) 742-995901-07-2024 Progress note Author Jim Randhawa [facility] July 02, 2023 11:26am Note Date/Time July 02, 2023 11 :26am [facility] [address] [place] [address] Hospitalist Progress Note Signed Patient: Mabel Moser MR#: [id number] : 1960 Acct:[id number] Age/Sex: 63 / F Adm Date: 4 Loc: 3T Room: [address] [place] [address] Type: ADM IN Attending Dr: Jim Randhawa [...] signed by Jim Randhawa DO> 07/02/23 1126 [facility] Work Phone: 1(698) 451-975001-07-2024 Progress note Author [facility] July 02, 2023 10:42am Note Date/Time July 02, 2023 10 :42am [facility] [address] [place] [address] Nephrology Progress Note Signed Patient: Mabel Moser MR#: [id number] : 1960 Acct:[id number] Age/Sex: 63 / F Adm Date: 4 Loc: Room: [address] [place] [address] Type: ADM IN Attending Dr: Jim Randhawa [...] 2 Mg Tablet) 2 mg PO DAILY [facility] Stop: 06/29/24 08:59 Last Admin: 07/02/23 08:55 Dose: 2 mg Bisacodyl (Bisacodyl 5 Mg Tablet.Dr) 10 mg PO DAILY PRN PRN Reason: Constipation Stop: 06/28/24 21:34 Bumetanide (Bumetanide 1 Mg/4 Ml Vial) 1 mg IV-PUSH BID@0800,1600 [facility] Stop: 06/29/24 07:59 Last Admin: 07/02/23 08:55 Dose: 1 mg Calcium Acetate (Calcium Acetate 667 Mg Capsule) 667 mg PO BID.WITH.MEALS [facility] Stop: 06/29/24 07:59 Last Admin: 07/02/23 08:55 Dose: 667 mg Duloxetine HCl (Duloxetine 60 Mg Capsule.) 120 mg PO DAILY [facility] Stop: 06/29/24 08:59 Last Admin: 07/02/23 08:59 Dose: 120 mg Fentanyl (Fentanyl Patch 100 Mcg/Hour Patch.Td72) 100 mcg TRANSDERML Q72H [facility]; Protocol Last Admin: 06/30/23 09:31 Dose: 100 mcg Ferrous Sulfate (Ferrous Sulfate 324 Mg Tablet.) 324 mg PO DAILY [facility] Stop: 06/29/24 08:59 Last Admin: 07/02/23 08:55 Dose: 324 mg Gabapentin (Gabapentin 100 Mg Capsule) 100 mg PO TID [facility] Stop: 06/29/24 08:59 Last Admin: 07/02/23 08:55 Dose: 100 mg Guaifenesin/Dextromethorphan (Guaif/Dextromethorphan Syrup 10 Ml Udc) 10 ml PO Q8H PRN PRN Reason: Cough Stop: 06/28/24 21:34 Heparin Sodium (Porcine) (Heparin 5,000 Unit/Ml Vial) 5,000 unit SUBCUT Q12HR [facility] Stop: 06/29/24 08:59 Last Admin: 07/02/23 08:55 Dose: 5,000 unit Levothyroxine Sodium (Levothyroxine 100 Mcg Tablet) 100 mcg PO DAILY@0630 [facility] Stop: 06/29/24 06:29 Last Admin: 07/02/23 05:48 Dose: 100 mcg Linaclotide (Linaclotide 290 Mcg Capsule) 290 mcg PO Q48HR [facility] Stop: 06/29/24 08:59 Last Admin: 07/02/23 08:59 Dose: 290 mcg Liothyronine Sodium (Liothyronine 25 Mcg Tablet) 25 mcg PO DAILY@0630 [facility] Stop: 06/29/24 10:59 Last Admin: 07/02/23 05:48 Dose: 25 mcg Loratadine (Loratadine 10 Mg Tablet) 10 mg PO DAILY PRN PRN Reason: Allergy Symptoms Stop: 06/29/24 06:54 Melatonin (Melatonin 5 Mg Tablet) 5 mg PO QHS PRN PRN Reason: Insomnia Stop: 06/28/24 21:34 Metoprolol Tartrate (Metoprolol Tartrate 25 Mg Tablet) 25 mg PO BID [facility] Stop: 06/29/24 20:59 Last Admin: [...] 50 Mg Tablet) 100 mg PO HS [facility] Stop: 06/29/24 21:59 Last Admin: 07/01/23 21:21 Dose: 100 mg Sevelamer Carbonate (Sevelamer Carbonate 800 Mg Tablet) 800 mg PO TID.WITH.MEALS [facility] Stop: 06/29/24 11:59 Last Admin: [...] signed by MD Los Grissom> 07/02/23 1042 [facility] Work Phone: 1(145) 221-842001-06-2024 Progress note Author Jim Randhawa [facility] July 01, 2023 1:52pm Note Date/Time July 01, 2023 1: 37pm [facility] [address] [place], [place] [id number] Hospitalist Progress Note Signed Patient: Mabel Moser MR#: [id number] : 1960 Acct:[id number] Age/Sex: 63 / F Adm Date: 4 Loc: Room: [address] [place] [address] Type: ADM IN Attending Dr: Jim Randhawa [...] signed by Jim Randhawa DO> 07/01/23 1352 [facility] Work Phone: 1(477) 363-280401-06-2024 Progress note Author [facility] July 01, 2023 10:16am Note Date/Time July 01, 2023 10 :16am [facility] [address] [place] [address] Nephrology Progress Note Signed Patient: Mabel Moser MR#: [id number] : 1960 Acct:[id number] Age/Sex: 63 / F Adm Date: 4 Loc: Room: [address] [place] [address] Type: ADM IN Attending Dr: Jim Randhawa [...] 50 Mg Tablet) 150 mg PO QHS [facility] Stop: 06/29/24 21:59 Last Admin: 06/30/23 21:17 Dose: 150 mg Aripiprazole (Aripiprazole 2 Mg Tablet) 2 mg PO DAILY [facility] Stop: 06/29/24 08:59 Last Admin: 07/01/23 08:21 Dose: 2 mg Bisacodyl (Bisacodyl 5 Mg Tablet.) 10 mg PO DAILY PRN PRN Reason: Constipation Stop: 06/28/24 21:34 Bumetanide (Bumetanide 1 Mg/4 Ml Vial) 1 mg IV-PUSH BID@0800,1600 [facility] Stop: 06/29/24 07:59 Last Admin: 07/01/23 08:21 Dose: 1 mg Calcium Acetate (Calcium Acetate 667 Mg Capsule) 667 mg PO BID.WITH.MEALS [facility] Stop: 06/29/24 07:59 Last Admin: 07/01/23 08:20 Dose: 667 mg Duloxetine HCl (Duloxetine 60 Mg Capsule.) 120 mg PO DAILY [facility] Stop: 06/29/24 08:59 Last Admin: 07/01/23 08:20 Dose: 120 mg Fentanyl (Fentanyl Patch 100 Mcg/Hour Patch.Td72) 100 mcg TRANSDERML Q72H [facility]; Protocol Last Admin: 06/30/23 09:31 Dose: 100 mcg Ferrous Sulfate (Ferrous Sulfate 324 Mg Tablet.) 324 mg PO DAILY [facility] Stop: 06/29/24 08:59 Last Admin: 07/01/23 08:20 Dose: 324 mg Gabapentin (Gabapentin 100 Mg Capsule) 100 mg PO TID [facility] Stop: 06/29/24 08:59 Last Admin: 07/01/23 08:20 Dose: 100 mg Guaifenesin/Dextromethorphan (Guaif/Dextromethorphan Syrup 10 Ml Udc) 10 ml PO Q8H PRN PRN Reason: Cough Stop: 06/28/24 21:34 Heparin Sodium (Porcine) (Heparin 5,000 Unit/Ml Vial) 5,000 unit SUBCUT Q12HR [facility] Stop: 06/29/24 08:59 Last Admin: 07/01/23 08:21 Dose: 5,000 unit Levothyroxine Sodium (Levothyroxine 100 Mcg Tablet) 100 mcg PO DAILY@0630 [facility] Stop: 06/29/24 06:29 Last Admin: 07/01/23 05:46 Dose: 100 mcg Linaclotide (Linaclotide 290 Mcg Capsule) 290 mcg PO Q48HR [facility] Stop: 06/29/24 08:59 Last Admin: 06/30/23 09:33 Dose: 290 mcg Liothyronine Sodium (Liothyronine 25 Mcg Tablet) 25 mcg PO DAILY@0630 [facility] Stop: 06/29/24 10:59 Last Admin: 07/01/23 05:46 Dose: 25 mcg Loratadine (Loratadine 10 Mg Tablet) 10 mg PO DAILY PRN PRN Reason: Allergy Symptoms Stop: 06/29/24 06:54 Melatonin (Melatonin 5 Mg Tablet) 5 mg PO QHS PRN PRN Reason: Insomnia Stop: 06/28/24 21:34 Metoprolol Tartrate (Metoprolol Tartrate 25 Mg Tablet) 25 mg PO BID [facility] Stop: 06/29/24 20:59 Last Admin: [...] signed by MD Los Grissom> 07/01/23 1016 [facility] Work Phone: 1(462) 909-509801-05-2024 Progress note Author Jim Randhawa [facility] June 30, 2023 1:13pm Note Date/Time June 30, 2023 1: 13pm [facility] [address] [place] [address] Hospitalist Progress Note Signed Patient: Mabel Moser MR#: [id number] : 1960 Acct:[id number] Age/Sex: 63 / F Adm Date: 4 Loc: Room: [address] [place] [address] Type: ADM IN Attending Dr: Jim Randhawa [...] subcu Documented By: Jim Randhawa DO 06/30/23 1307 Signed By: <Electronically signed by Jim Randhawa DO> 06/30/23 1313 [facility] Work Phone: 1(481) 945-507701-05-2024 Consult note Author Los Grissom [facility] June 30, 2023 10:45am Note Date/Time June 30, 2023 10 :26am [facility] [address] [place] [address] Nephrology Consult Note Signed Patient: Mabel Moser MR#: [id number] : 1960 Acct:[id number] Age/Sex: 63 / F Adm Date: 4 Loc: Room: [address] [place] [address] Type: ADM IN Attending Dr: Jim Randhawa DO Copies to: MD Los Mensah MD Shawn J Warner, DO~ Providers Consult Date: 06/30/23 Requesting Provider: Jim Randhawa DO Primary Care Provider: Yuri Santana MD [facility] Reason for Consult: LEEANN with creatinine 3.16 [...] and no additional complaints, except as documented [facility] Medical History CAD (coronary artery disease) [...] 50 Mg Tablet) 150 mg PO QHS [facility] Stop: 06/29/24 21:59 Aripiprazole (Aripiprazole 2 Mg Tablet) 2 mg PO DAILY [facility] Stop: 06/29/24 08:59 Last Admin: 06/30/23 09:30 Dose: 2 mg Bisacodyl (Bisacodyl 5 Mg Tablet.) 10 mg PO DAILY PRN PRN Reason: Constipation Stop: 06/28/24 21:34 Bumetanide (Bumetanide 1 Mg/4 Ml Vial) 1 mg IV-PUSH BID@0800,1600 [facility] Stop: 06/29/24 07:59 Last Admin: 06/30/23 09:31 Dose: 1 mg Calcium Acetate (Calcium Acetate 667 Mg Capsule) 667 mg PO BID.WITH.MEALS [facility] Stop: 06/29/24 07:59 Last Admin: 06/30/23 09:30 Dose: 667 mg Duloxetine HCl (Duloxetine 60 Mg Capsule.) 120 mg PO DAILY [facility] Stop: 06/29/24 08:59 Last Admin: 06/30/23 09:30 Dose: 120 mg Escitalopram Oxalate (Escitalopram 20 Mg Tablet) 20 mg PO DAILY [facility] Stop: 06/29/24 08:59 Last Admin: 06/30/23 09:31 Dose: 20 mg Fentanyl (Fentanyl Patch 100 Mcg/Hour Patch.Td72) 100 mcg TRANSDERML Q72H [facility]; Protocol Last Admin: 06/30/23 09:31 Dose: 100 mcg Ferrous Sulfate (Ferrous Sulfate 324 Mg Tablet.) 324 mg PO DAILY [facility] Stop: 06/29/24 08:59 Last Admin: 06/30/23 09:31 Dose: 324 mg Gabapentin (Gabapentin 100 Mg Capsule) 100 mg PO TID [facility] Stop: 06/29/24 08:59 Last Admin: 06/30/23 09:31 Dose: 100 mg Guaifenesin/Dextromethorphan (Guaif/Dextromethorphan Syrup 10 Ml Udc) 10 ml PO Q8H PRN PRN Reason: Cough Stop: 06/28/24 21:34 Heparin Sodium (Porcine) (Heparin 5,000 Unit/Ml Vial) 5,000 unit SUBCUT Q12HR [facility] Stop: 06/29/24 08:59 Last Admin: 06/30/23 09:32 Dose: 5,000 unit Levothyroxine Sodium (Levothyroxine 100 Mcg Tablet) 100 mcg PO DAILY@0630 [facility] Stop: 06/29/24 06:29 Last Admin: 06/30/23 05:55 Dose: 100 mcg Linaclotide (Linaclotide 290 Mcg Capsule) 290 mcg PO Q48HR [facility] Stop: 06/29/24 08:59 Last Admin: 06/30/23 09:33 Dose: 290 mcg Liothyronine Sodium (Liothyronine 25 Mcg Tablet) 25 mcg PO DAILY [facility] Stop: 06/29/24 08:59 Loratadine (Loratadine [...] 40 Mg Tablet.) 40 mg PO BID [facility] Stop: 06/29/24 08:59 Last Admin: 06/30/23 09:31 Dose: 40 mg Primidone (Primidone 50 Mg Tablet) 100 mg PO HS [facility] Stop: 06/29/24 21:59 Sevelamer Carbonate [...] <Electronically signed by MD Los Grissom> 06/30/23 1043 [facility] Work Phone: 1(357) 832-542801-04-2024 History and physical note Author Beatriz Oh [facility] June 29, 2023 9:51pm Note Date/Time June 29, 2023 9: 47pm [facility] [address] [place] [address] Hospitalist H&P Signed Patient: Mabel Moser MR#: [id number] : 1960 Acct:[id number] Age/Sex: 63 / F Adm Date: 4 Loc: Room: [address] [place] [address] Type: ADM IN Attending Dr: Papito Garces [...] She denies having dysuria, hematuria, or frequency. [facility] Medical History CAD (coronary artery disease) [...] mg PO BID 08/31/18 [History Confirmed 10/28/22] bojaotle-ryijkyo-muno-iron fum 18 mg-folic 600 mcg-vit K 80 [...] TID PRN Edema 10/28/22 [History Confirmed 10/28/22] putwomqifi-lszeyoizgbvfv-fucbkann 50 mg-325 mg-40 mg capsule 1 cap [...] 3 Documented By: Beatriz Oh MD 06/29/23 Signed By: <Electronically signed by Beatriz Oh MD> 06/29/23 215 [facility] Work Phone: 1(591) 784-533710-10-2023 Evaluation note* Encounter Date Diagnosis Assessment Notes [...] G43.519) Advised the patient to follow with [facility] neurology clinic Mar, Chronic kidney disea [...] (ICD-10 - E83.39) Continue PhosLo with meals [employer] Other 04-04-2023 Evaluation note* Encounter Date Diagnosis [...] G43.519) Advised the patient to follow with [facility] neurology clinic [facility] [employer] Other 03-28-2023 [facility]The [id number]* Encounter Date Diagnosis Assessment Notes Treatment Notes Treatment Clinical Notes Jul, Contusion of right wrist, initial encounter (ICD-10 - S60.211A) Patient placed in cock up wrist splint. Activities 2-5 lbs ADLs [employer] Other 12-13-2022 [facility]The [id number] NoteThe [id number] NoteThe [id number] Evaluation note * Encounter Date Diagnosis Assessment [...] pressure. Advised the patient to follow-up with [facility] neurology clinic I will try to reach to Dr. Santana's office about fludrocortisone I would continue same blood pressure medications. Advised the patient to follow a low-salt diet and to monitor her blood pressure at home Mar, Migraine aura, persistent, intractable (ICD-10 - G43.519) Advised the patient to follow with [facility] neurology clinic [employer] Other 08-04-2022 NoteThe [id number] NoteThe [facility] [id number] Evaluation note* Encounter Date Diagnosis Assessment Notes [...] off all diuretics metolazone, spironolactone and bumetanide. [employer] Other Discharge summary Author Jim Randhawa [facility] July 03, 2023 3:03pm Note Date/Time July 03, 2023 2: 55pm [facility] [address] [place] [address] Discharge Summary Signed Patient: Mabel Moser MR#: [id number] : 1960 Acct:[id number] Age/Sex: 63 / F Adm Date: 4 Loc: Room: [address] [place] [address]: Jim Randhawa DO Copies to: [...] signed by Jim Randhawa DO> 07/03/23 1503 [facility] Work Phone: Evaluation + Plan note No data available for this section [facility] General Surgery Sophie Evaluation noteNo assessment information available [facility] Work Phone: Evaluation noteNo InformationNort [email or web address] Other Evaluation note* Diagnosis Onset Date Resolution Status Acute heart failure acute LEEANN (acute kidney injury) ac isela Anemia chronic CKD (chronic kidney disease) stage 3, GFR 30-59 ml/min chronic Hypertension chronic [facility] Work Phone: Evaluation note* Diagnosis Onset Date Resolution Status CHF (congestive heart failure) acute Chronic kidney disease, stage 3b acute Fluid overload acute Hyperkalemia acute Secondary hyperparathyroidism acute Vitamin D deficiency acute Anemia chronic Hyponatremia chronic [facility] Work Phone: history general Narrative - Reported* [...] History COVID 05/2020 Hospitalization History COVID 04/2021 [employer] Other [employer] general Narrative - Reported* Type Description Date [...] History COVID 05/2020 Hospitalization History COVID 04/2021 [facility] Other history general Narrative - Reported* Type [...] 04/2021 Hospitalization History ELEVATED POTASSIUM LEVEL 09/19/2022 [facility] Other Hospital Discharge instructions Additional Instructions Home health to manage: - PT/OT to eval and treat - Monitor VS routine - Dx. HTN - CHF assessments/education - Urinary assessments - Dx. CKD on LEEANN - Fall precautions - [facility] Work Phone: Hospital Discharge instructions No data available for this section [facility] Progress note No data available for this section [facility] Summary Purpose Family History No Family [...] DATE CREATED AUTHOR AUTHOR'S ORGANIZ ATION 07/24/2021 [facility] DATE CREATED AUTHOR AUTHOR'S ORGANIZ ATION 01/17/2022 [facility] DATE CREATED AUTHOR AUTHOR'S ORGANIZ ATION 12/05/2022 [facility] DATE CREATED AUTHOR AUTHOR'S ORGANIZ ATION 08/04/2023 [facility] DATE CREATED AUTHOR AUTHOR'S ORGANIZ ATION 10/19/2023 [facility] DATE CREATED AUTHOR AUTHOR'S ORGANIZ ATION 03/07/2024 [facility] DATE CREATED AUTHOR AUTHOR'S ORGANIZ ATION 03/27/2024 [facility] DATE CREATED AUTHOR AUTHOR'S ORGANIZ ATION 06/05/2024 [facility] DATE CREATED AUTHOR AUTHOR'S ORGANIZ ATION 09/13/2024 [facility] REASON FOR VISIT (unrecogniz ed section [...] BE BASED ON THE PRIMARY CLINICAL RECORDS. [facility] [employer] [facility]. provides no warranty or guarantee of the accuracy or completeness of information in this document.
[2024-09-15] MEDS: BUMETANIDE 10 MG in 0.9 % SODIUM CHLORIDE 160 ML IV (22:51)
[2024-09-16] VITALS (14 sets, daily range): BP systolic 103–174; BP diastolic 68–84; PULSE 62–93; TEMP 36.6–36.8; O2SAT 93–100
[2024-09-16 05:26] LABS: Hematocrit 29.4 % (36.0-48.0); Hemoglobin 9.2 g/dL (12.0-16.0); Mean Corpuscular HGB Conc 31.3 g/dL (29.9-35.2); Mean Corpuscular Hemoglobin 30.9 pg (26.7-34.0); Mean Corpuscular Volume 98.7 fL (81.0-99.0); Mean Platelet Volume 8.9 fL (9.5-13.5); Platelet Count 218 10^3/uL (150-450); Red Blood Count 2.98 10^6/uL (4.20-5.40); Red Cell Distribution Width 13.8 % (11.0-15.0); White Blood Count 3.6 10^3/uL (4.0-11.0)
[2024-09-16 05:35] LABS: Anion Gap 9.5; BUN Creatinine Ratio 25.6; Chloride 101 mmol/L (98-107); Estimated GFR (African America 35 (>=60 mL/min/1.73m^2); Estimated GFR (Non-African Ame 29 (>=60 mL/min/1.73m^2); Glucose 88 mg/dL (74-106); Potassium 3.5 mmol/L (3.5-5.1); Sodium 137 mmol/L (136-145)
--- NOTE | 2024-09-16 08:33 | CM.NOTE ---
Rounds made with Dr. Godinez, pt c/o swelling bilat lower extremities with increased redness. No discharge today, pt will have bilat lower extremity Doppler and continue IV antibiotics and diuretics.
--- NOTE | 2024-09-16 09:02 | P.HP_ITS ---
HPI H&P: HPI History of Present Illness Chief complaint: SOB,FLUID RETENTION,URI,DYSPNEA,PERIPHERAL EDEMA Narrative: Patient presented to the emergency room with increasing shortness of breath and difficulty ambulating secondary to the shortness of breath, significant fluid overload with 20 pound weight gain last 10 days, was through the office last week and told to double up her diuretics, that was ineffective with no significant increase in urine output. She has been using her lymphedema pumps but harder to use as the swelling has increased. In ER found to have significant fluid overload and is admitted for workup and treatment of same, 20 pound weight gain. I saw patient up in the medical surgical floor, resting company bed she has pain in her lower extremities but no dyspnea at rest Opioid HPI Opioid Management Most Recent Pain and Opioid Data: Last Pain Scale 7 09/16/24 09:00 09/16/24 Last Pain Assessment 09/16/24 09:00 Last ORT Total Score 0 09/15/24 22:00 09/15/24 Last ORT Risk Category Low Risk 09/15/24 22:00 09/15/24 Review of Systems ROS Status of ROS 10 or more systems reviewed and unremark able except as noted in history and below [facility] Medical History Hyperglycemia ?R73.9 - Hyperglycemia, unspecified (ICD-10) Recurrent UTI ?N39.0 - Urinary tract infection, site not specified (ICD-10) Atelectasis of both lungs ?J98.11 - Atelectasis (ICD-10) C2 cervical fracture ?S12.100A - Unspecified displaced fracture of second cervical vertebra, initial encounter for closed fracture (ICD-10) Shoulder pain, left ?M25.512 - Pain in left shoulder (ICD-10) Pulmonary embolism ?I26.99 - Other pulmonary embolism without acute cor pulmonale (ICD-10) DVT (deep venous thrombosis) ?I82.409 - Acute embolism and thrombosis of unspecified deep veins of unspecified lower extremity (ICD-10) Osteoporosis ?M81.0 - Age-related osteoporosis without current pathological fracture (ICD- 10) Seizures ?R56.9 - Unspecified convulsions (ICD-10) IBS (irritable bowel syndrome) ?K58.9 - Irritable bowel syndrome without diarrhea (ICD-10) D-dimer, elevated ?R79.89 - Other specified abnormal findings of blood chemistry (ICD-10) Chronic kidney insufficiency ?N18.9 - Chronic kidney disease, unspecified (ICD-10) Fluid overload ?E87.70 - Fluid overload, unspecified (ICD-10) Lymphedema ?I89.0 - Lymphedema, not elsewhere classified (ICD-10) Volume overload ?E87.70 - Fluid overload, unspecified (ICD-10) Anemia of chronic disease ?D63.8 - Anemia in other chronic diseases classified elsewhere (ICD-10) Chronic kidney disease ?N18.9 - Chronic kidney disease, unspecified (ICD-10) Acute kidney injury ?N17.9 - Acute kidney failure, unspecified (ICD-10) Edema of lower leg due to peripheral venous insufficiency ?I87.2 - Venous insufficiency (chronic) (peripheral) (ICD-10) ?R60.0 - Localized edema (ICD-10) Depression ?F32.A - Depression, unspecified (ICD-10) Gastroenteritis ?K52.9 - Noninfective gastroenteritis and colitis, unspecified (ICD-10) Migraine without aura and without status migrainosus, not intractable ?G43.009 - Migraine without aura, not intractable, without status migrainosus (ICD-10) Chronic heart failure with preserved ejection fraction (HFpEF) ?I50.32 - Chronic diastolic (congestive) heart failure (ICD-10) Chest pain ?R07.9 - Chest pain, unspecified (ICD-10) Dyspnea ?R06.00 - Dyspnea, unspecified (ICD-10) Osteoarthritis ?M19.90 - Unspecified osteoarthritis, unspecified site (ICD-10) Anemia ?D64.9 - Anemia, unspecified (ICD-10) Anxiety ?F41.9 - Anxiety disorder, unspecified (ICD-10) Stroke ?I63.9 - Cerebral infarction, unspecified (ICD-10) Acid reflux ?K21.9 - Gastro-esophageal reflux disease without esophagitis (ICD-10) Hypothyroid ?E03.9 - Hypothyroidism, unspecified (ICD-10) COPD (chronic obstructive pulmonary disease) ?J44.9 - Chronic obstructive pulmonary disease, unspecified (ICD-10) Asthma ?J45.909 - Unspecified asthma, uncomplicated (ICD-10) CHF (congestive heart failure) ?I50.9 - Heart failure, unspecified (ICD-10) Irregular heart beat ?I49.9 - Cardiac arrhythmia, unspecified (ICD-10) HTN (hypertension) ?I10 - Essential (primary) hypertension (ICD-10) Heart attack ?I21.9 - Acute myocardial infarction, unspecified (ICD-10) Lumbar spondylosis ?M47.816 - Spondylosis without myelopathy or radiculopathy, lumbar region (ICD-10) Surgical History H/O cervical spinal arthrodesis ?Z98.1 - Arthrodesis status (ICD-10) Port-A-Cath in place ?Z95.828 - Presence of other vascular implants and grafts (ICD-10) History of lumbar fusion ?Z98.1 - Arthrodesis status (ICD-10) H/O hysterectomy with oophorectomy H/O gastric bypass ?Z98.84 - Bariatric surgery status (ICD-10) History of hernia repair ?Z98.890 - Other specified postprocedural states (ICD-10) ?Z87.19 - Personal history of other diseases of the digestive system (ICD-10) History of rotator cuff surgery ?Z98.890 - Other specified postprocedural states (ICD-10) History of right knee joint replacement ?Z96.651 - Presence of right artificial knee joint (ICD-10) History of appendectomy ?Z90.49 - Acquired absence of other specified parts of digestive tract (ICD- 10) Hx of cholecystectomy ?Z90.49 - Acquired absence of other specified parts of digestive tract (ICD- 10) Family History Father Family history of CHF (congestive heart failure) Family history of diabetes mellitus Family history of hypertension Family history of myocardial infarction Family history of stroke Mother Family history of CHF (congestive heart failure) Family history of COPD (chronic obstructive pulmonary disease) Family history of diabetes mellitus Family history of hypertension Family history of myocardial infarction Family history of stroke Social History (Updated 09/15/24 @ 22:10 by Rosa Isela Marroquin RN) Within the past year, how often did you have a drink containing alcohol: never Within the past year, how often did you have six or more drinks on one occasion: never Score interpretation: A score less than 3 is consistent with normal alcohol consumption. 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 Highest level of school completed/degree received: some college, no degree Are you now , , , , never or living with a partner: In a typical week, how many times do you talk on the telephone with family, friends, or neighbors: 3 or more times per week How often do you get together with friends or relatives: twice per week How often do you attend pentecostal or restorationist services: 4 or more times per year Do you belong to any clubs or organizations such as pentecostal groups unions, [employer] or athletic groups, or school groups: no Total score: 3 Score interpretation: A score of greater than or equal to 2 indicates the lowest level of social isolation. Little interest or pleasure in doing things: not at all Feeling down, depressed, or hopeless: not at all Feel stressed/tense/nervous/anxious/difficulty sleeping: to some extent Life stressors: recent of family or friend Do you think of yourself as: straight/heterosexual Gender Identity: female Meds Home Medications and Allergies Home Medications ?Medication ?Instructions ?Recorded ?Confirmed ?Type alprazolam 0.5 mg tablet 0.5 mg PO BID PRN anxiety 12/08/22 09/15/24 History amitriptyline 150 mg tablet 300 mg PO BEDTIME 12/08/22 09/15/24 History calcium acetate(phosphat bind) 667 667 mg PO BIDWM 12/08/22 09/15/24 History mg capsule levothyroxine 100 mcg tablet 100 mcg PO DAILY 12/08/22 09/15/24 History linaclotide 290 mcg capsule 290 mcg PO DAILY 12/08/22 09/15/24 History (Linzess) oxycodone-acetaminophen 5 mg-325 2 tab PO Q6H PRN pain 12/08/22 09/15/24 History mg tablet primidone 50 mg tablet 150 mg PO BEDTIME 12/08/22 09/15/24 History tizanidine 4 mg tablet (Zanaflex) 4 mg PO Q6H PRN muscle spasticity 12/08/22 09/15/24 History aripiprazole 2 mg tablet (Abilify) 2 mg PO DAILY 01/23/23 09/15/24 History bumetanide 1 mg tablet 4 mg PO Q12H SWELLING 01/23/23 09/15/24 History butorphanol 10 mg/mL nasal spray 1 spray intranasal .QD PRN pain 02/03/23 09/15/24 History azelastine 0.05 % eye drops 1 drp ophthalmic (eye) DAILY 09/29/23 09/15/24 History desvenlafaxine succinate 50 mg 50 mg PO DAILY 09/29/23 09/15/24 History tablet,extended release 24 hr diclofenac sodium 1 % topical gel 2 g topical .QD PRN 09/29/23 09/15/24 History PAIN/INFLAMMATION doxepin 10 mg capsule 20 mg PO BEDTIME 09/29/23 09/15/24 History escitalopram oxalate 20 mg tablet 20 mg PO DAILY 09/29/23 09/15/24 History fentanyl 100 mcg/hr transdermal 1 patch transdermal Q72H 10/12/23 09/15/24 History patch pramipexole 1 mg tablet 1 mg PO .qd 10/23/23 09/15/24 History sacubitril 49 mg-valsartan 51 mg 1 tab PO BID 01/04/24 09/15/24 History tablet (Entresto) spironolactone 50 mg tablet 50 mg PO Q12H 01/04/24 09/15/24 History apixaban 5 mg tablet (Eliquis) 5 mg PO BID 03/29/24 09/15/24 History atorvastatin 40 mg tablet 40 mg PO .HS 03/29/24 09/15/24 History agvqnzhfoq-ftslwwlltmeys-jkodyaui 1 cap PO DAILY PRN migraine 03/29/24 09/15/24 History 50 mg-300 mg-40 mg capsule headache fluticasone furoate 100 1 inh inhalation Q24H 03/29/24 09/15/24 History mcg-vilanterol 25 mcg/dose inhalation powder (Breo Ellipta) sevelamer carbonate 800 mg tablet 800 mg PO BID 03/29/24 09/15/24 History Allergies Allergy/AdvReac Type Severity Reaction Status Date / Time povidone-iodine (From Allergy Intermediate Rash Verified 08/27/24 08:54 Betadine) amoxicillin (From Augmentin) AdvReac Mild Vomiting Verified 08/27/24 08:56 clavulanic acid (From AdvReac Mild Vomiting Verified 08/27/24 08:56 Augmentin) Sulfa (Sulfonamide AdvReac Mild Vomiting Verified 08/27/24 08:56 Antibiotics) ciprofloxacin (From Cipro) AdvReac Unknown Vomiting Verified 08/27/24 08:56 Exam Constitutional Vital Signs, click to edit/add: Last Vital Signs Temp 98.0 F 09/16/24 08:20 Pulse 69 09/16/24 08:20 Resp 18 09/16/24 08:20 BP 144/84 H 09/16/24 08:20 Pulse Ox 94 L 09/16/24 08:20 O2 Del Method Room Air 09/16/24 08:20 Documenting provider has reviewed patient's vital signs: yes Common normals: no apparent distress Chest Common normals: inspection of chest normal Respiratory Common normals: normal respiratory effort Cardio Common normals: regular rate and regular rhythm GI Common normals: negative for Normal to inspection, nondistended, normoactive bowel sounds present (Morbid obesity) Extremity Common normals: abnormal to inspection (4+ swelling bilateral lower extremities with erythema L > R) Results Labs Labs: Short CBC 09/15/24 09/16/24 Range/Units 19:15 04:35 WBC 4.3 3.6 L (4.0-11.0) 10^3/uL Hgb 9.8 L 9.2 L (12.0-16.0) g/dL Hct 31.4 L 29.4 L (36.0-48.0) % Plt Count 219 218 (150-450) 10^3/uL BMP 09/15/24 09/16/24 19:15 04:35 Sodium 135 L 137 Potassium 3.7 3.5 Chloride 99 101 Carbon Dioxide 26.4 30.0 BUN 48.0 H 45.0 H Creatinine 1.88 H 1.76 H Glucose 86 88 Calcium 8.5 8.0 L Liver Function 09/15/24 Range/Units 19:15 Total Bilirubin 0.3 (0.2-1.0) mg/dL AST 33 (15-37) U/L ALT 20 (14-59) U/L Alkaline Phosphatase 289 H (46-116) U/L Albumin 3.2 L (3.4-5.0) g/dL ABG ABG results: 09/15/24 19:15 VBG pH 7.346 VBG pCO2 47.8 Assessment and Plan Assessment and Plan (1) Peripheral edema: (2) Shortness of breath: (3) Fluid overload: (4) Lumbar stenosis with neurogenic claudication: (5) Chronic pain: (6) Lymphedema: (7) Anemia of chronic disease: (8) Chronic kidney disease: (9) Anxiety: (10) Hypothyroid: (11) COPD (chronic obstructive pulmonary disease): (12) HTN (hypertension): (13) CHF (congestive heart failure): Qualifiers: Heart failure type: combined systolic and diastolic Heart failure chronicity: chronic Qualified Code(s): I50.42 - Chronic combined systolic (congestive) and diastolic (congestive) heart failure (14) Neutropenia: (15) Elevated alkaline phosphatase level: Plan Admission findings: Uncontrolled hypertension, acute hyponatremia, acute elevation in alkaline phosphatase likely secondary to fluid overload with passive congestion in the liver, patient with 20 pound weight gain despite outpatient treatment with double dose of her oral diuretics and use of her lymphedema pumps Fluid overload lower extremities with fluid overload without overt heart failure-she does have a history of chronic combined congestive heart failure, Bumex drip today, likely repeat tomorrow likely hospitalized 3 days-check ultrasound of legs Possible bilateral lower extremity cellulitis-start IV antibiotics Uncontrolled hypertension-improved so far this morning, continue with home medications, diuresis likely to assist Neutropenia this a.m.-will monitor daily Iron deficiency anemia as well as anemia of chronic kidney disease stage III- monitor daily, currently low but at her baseline Hyponatremia is evidence for fluid overload, improved this morning Chronic kidney disease stage III-currently at her baseline Elevated alkaline phosphatase likely related to passive congestion-repeat labs later in the admission Hypothyroidism-continue with home medications Hypercholesterolemia continue with home medications Chronic lumbar radiculopathy continue with home medications Chronic anticoagulation for DVT as well as CVA-continue with home medications COPD with asthma-no acute exacerbation maintain home medications Restless leg syndrome continue with home medications Admission status: Patient with significant fluid overload with failed outpatient treatment with oral medications, medically necessary treatment will span 2 mi dnights, inpatient status
[2024-09-16] MEDS: OXYCODONE HCL/ACETAMINOPHEN 5MG/325MG 2 TAB PO ×3 (09:15→23:28)
[2024-09-16] MEDS: APIXABAN 5 MG TABLET PO ×2 (09:16→21:37)
[2024-09-16] MEDS: SPIRONOLACTONE 25 MG TABLET 50 MG PO ×2 (09:16→21:37)
[2024-09-16] MEDS: ESCITALOPRAM 10 MG TABLET 20 MG PO (09:16)
[2024-09-16] MEDS: SEVELAMER CARBONATE 800 MG TABLET PO ×2 (09:16→21:37)
[2024-09-16] MEDS: CALCIUM ACETATE 667 MG CAPSULE PO ×2 (09:16→16:40)
[2024-09-16] MEDS: DESVENLAFAXINE SUCCINATE 50 MG TAB.ER.24H PO (09:16)
[2024-09-16] MEDS: LEVOTHYROXINE SODIUM 100 MCG TABLET PO (09:17)
[2024-09-16] MEDS: ARIPIPRAZOLE 2 MG TABLET PO (09:17)
[2024-09-16] MEDS: PRAMIPEXOLE 1 MG TABLET PO (09:17)
[2024-09-16] MEDS: LEVOFLOXACIN 750 MG TABLET PO (09:18)
[2024-09-16] MEDS: SACUBITRIL/VALSARTAN 24 MG-26 MG TABLET 1 TAB PO ×2 (09:18→21:37)
[2024-09-16 09:42] LABS: Magnesium 2.1 mg/dL (1.8-2.4)
--- NOTE | 2024-09-16 09:51 | CM.NOTE ---
Important Message From Medicare discussed with pt, pt verbalizes understanding and signs paper. Original given to pt and copy placed in pt's chart.
[2024-09-16] MEDS: ALBUTEROL SULFATE 2.5 MG/3 ML VIAL NEB IH ×3 (11:01→22:56)
[2024-09-16] MEDS: BUDESONIDE 0.5 MG/2 ML AMPULE NEB IH ×2 (11:01→22:56)
[2024-09-16] MEDS: FLU VAC QS 2024(6MS UP)CEL/PF 60 MCG/0.5 ML SYRINGE IM (17:22)
[2024-09-16] MEDS: PNEUMOC 20-VAL CONJ-DIP CRM/PF 0.5 ML SYRINGE IM (17:24)
[2024-09-16] MEDS: AMITRIPTYLINE HCL 50 MG TABLET 300 MG PO (21:37)
[2024-09-16] MEDS: DOXEPIN HCL 10 MG CAPSULE 20 MG PO (21:38)
[2024-09-16] MEDS: PRIMIDONE 50 MG TABLET 150 MG PO (21:38)
[2024-09-17] VITALS (9 sets, daily range): BP systolic 106–148; BP diastolic 64–93; PULSE 70–102; TEMP 36.1–36.6; O2SAT 93–100
[2024-09-17 05:22] LABS: Basophils Percent Auto 0.4 % (0.2-2.0); Eosinophils Absolute Auto 0.1 10^3/uL (0.0-0.7); Eosinophils Percent Auto 1.5 % (0.9-7.0); Hematocrit 31.3 % (36.0-48.0); Hemoglobin 9.6 g/dL (12.0-16.0); Immature Granulocytes Abs Auto 0.01 10^3/uL (0.00-0.03); Immature Granulocytes Pct Auto 0.2 % (0.0-0.5); Lymphocytes Absolute Auto 0.9 10^3/uL (1.2-3.8); Lymphocytes Percent Auto 18.9 % (20.5-60.0); Mean Corpuscular HGB Conc 30.7 g/dL (29.9-35.2); Mean Corpuscular Hemoglobin 30.5 pg (26.7-34.0); Mean Corpuscular Volume 99.4 fL (81.0-99.0); Mean Platelet Volume 8.9 fL (9.5-13.5); Monocytes Absolute Auto 0.4 10^3/uL (0.3-0.8); Neutrophils Absolute Auto 3.2 10^3/uL (1.4-6.5); Platelet Count 244 10^3/uL (150-450); Red Blood Count 3.15 10^6/uL (4.20-5.40); White Blood Count 4.5 10^3/uL (4.0-11.0)
[2024-09-17] MEDS: OXYCODONE HCL/ACETAMINOPHEN 5MG/325MG 2 TAB PO (05:31)
[2024-09-17] MEDS: LEVOTHYROXINE SODIUM 100 MCG TABLET PO (05:31)
[2024-09-17 05:40] LABS: Anion Gap 10.2; BUN Creatinine Ratio 24.2; Calcium 8.3 mg/dL (8.5-10.1); Carbon Dioxide 29.3 mmol/L (21.0-32.0); Chloride 102 mmol/L (98-107); Estimated GFR (African America 35 (>=60 mL/min/1.73m^2); Estimated GFR (Non-African Ame 29 (>=60 mL/min/1.73m^2); Glucose 111 mg/dL (74-106); Potassium 3.5 mmol/L (3.5-5.1); Sodium 138 mmol/L (136-145)
--- NOTE | 2024-09-17 07:26 | P.PN_ITS ---
Progress Note: Subjective Subjective Interval history: Patient still has significant cramping in the legs, dyspnea improved but still persisting more than her baseline Exam Constitutional Vital Signs, click to edit/add: Last Vital Signs Temp 97 F L 09/17/24 03:27 Pulse 84 09/17/24 03:27 Resp 18 09/17/24 03:27 BP 145/93 H 09/17/24 03:27 Pulse Ox 96 09/17/24 03:27 O2 Del Method Room Air 09/17/24 03:27 Documenting provider has reviewed patient's vital signs: yes Common normals: no apparent distress Chest Common normals: inspection of chest normal Respiratory Common normals: normal respiratory effort Cardio Common normals: regular rate, regular rhythm and no murmurs GI Common normals: soft to palpation and non-tender; negative for Normal to inspection, nondistended, normoactive bowel sounds present (Morbid obesity) Extremity Common normals: abnormal to inspection (3-4+ swelling bilateral lower extremities with erythema L > R persisting) Progress Note: Objective Labs Labs: Short CBC 09/17/24 Range/Units 04:45 WBC 4.5 (4.0-11.0) 10^3/uL Hgb 9.6 L (12.0-16.0) g/dL Hct 31.3 L (36.0-48.0) % Plt Count 244 (150-450) 10^3/uL BMP 09/17/24 04:45 Sodium 138 Potassium 3.5 Chloride 102 Carbon Dioxide 29.3 BUN 43.0 H Creatinine 1.78 H Glucose 111 H Calcium 8.3 L Progress Note: A&P Assessment and Plan (1) Peripheral edema: (2) Shortness of breath: (3) Fluid overload: (4) Lumbar stenosis with neurogenic claudication: (5) Chronic pain: (6) Lymphedema: (7) Anemia of chronic disease: (8) Chronic kidney disease: (9) Anxiety: (10) Hypothyroid: (11) COPD (chronic obstructive pulmonary disease): (12) HTN (hypertension): (13) CHF (congestive heart failure): Qualifiers: Heart failure type: combined systolic and diastolic Heart failure chronicity: chronic Qualified Code(s): I50.42 - Chronic combined systolic (congestive) and diastolic (congestive) heart failure (14) Neutropenia: (15) Elevated alkaline phosphatase level: Plan Admission findings: Uncontrolled hypertension, acute hyponatremia, acute elevation in alkaline phosphatase likely secondary to fluid overload with passive congestion in the liver, patient with 20 pound weight gain despite outpatient treatment with double dose of her oral diuretics and use of her lymphedema pumps Fluid overload lower extremities with fluid overload without overt heart failure-good suspect is much as expected, will repeat Bumex drip again today and then started again tonight, with about 2 hours in between, so far kidney function tolerating diuresis Possible bilateral lower extremity cellulitis-continue antibiotics, ultrasound negative for DVT Uncontrolled hypertension-improved from admission Neutropenia this a.m.-resolved Iron deficiency anemia as well as anemia of chronic kidney disease stage III- monitor daily, currently low but at her baseline Hyponatremia is evidence for fluid overload,-resolved Chronic kidney disease stage III-currently at her baseline Elevated alkaline phosphatase likely related to passive congestion-repeat labs later in the admission Hypothyroidism-continue with home medications Hypercholesterolemia continue with home medications Chronic lumbar radiculopathy continue with home medications Chronic anticoagulation for DVT as well as CVA-continue with home medications COPD with asthma-no acute exacerbation maintain home medications Restless leg syndrome continue with home medications Admission status: Patient with significant fluid overload with failed outpatient treatment with oral medications, medically necessary treatment will span 2 midnights, inpatient status ?
[2024-09-17] MEDS: BENZONATATE 100 MG CAPSULE 200 MG PO (08:54)
[2024-09-17] MEDS: LEVOFLOXACIN 750 MG TABLET PO (08:54)
[2024-09-17] MEDS: SPIRONOLACTONE 25 MG TABLET 50 MG PO ×2 (08:54→20:17)
[2024-09-17] MEDS: APIXABAN 5 MG TABLET PO ×2 (08:54→20:17)
[2024-09-17] MEDS: DESVENLAFAXINE SUCCINATE 50 MG TAB.ER.24H PO (08:54)
[2024-09-17] MEDS: BUMETANIDE 10 MG in 0.9 % SODIUM CHLORIDE 160 ML 20 MG IV ×2 (08:54→18:39)
[2024-09-17] MEDS: PRAMIPEXOLE 1 MG TABLET PO (08:54)
[2024-09-17] MEDS: ESCITALOPRAM 10 MG TABLET 20 MG PO (08:54)
[2024-09-17] MEDS: SEVELAMER CARBONATE 800 MG TABLET PO ×2 (08:54→20:17)
[2024-09-17] MEDS: CALCIUM ACETATE 667 MG CAPSULE PO ×2 (08:54→17:13)
[2024-09-17] MEDS: ALPRAZOLAM 0.5 MG TABLET PO (08:54)
[2024-09-17] MEDS: SACUBITRIL/VALSARTAN 24 MG-26 MG TABLET 1 TAB PO ×2 (08:55→20:17)
[2024-09-17] MEDS: ARIPIPRAZOLE 2 MG TABLET PO (08:55)
--- NOTE | 2024-09-17 09:55 | PT.DAILY ---
Physical Therapy Daily Note PT Daily Note/Assess Start: 09/17/24 09:49 Freq: Status: Active Protocol: Document 09/17/24 09:25 LANI (Rec: 09/17/24 09:55 LANI [id number]) Physical Therapy Daily Note/Assessment Time In/Time Out Time In 09:26 Time Out 09:40 Subjective Subjective Patient reports she is feeling better and has been getting more sleep. No complaints reports today. Therapeutic Exercise Time Therapeutic Exercise 4 Minutes (minutes) Therapeutic Exercise 0 Units Therapeutic Exercise Treatment Therapeutic Exercise LAQ x 10 Treatment Marches x 10 Hip abd x10 Adduction squeezes x 10 HR/TR x 10 Therapeutic Activity Time Therapeutic Activity 10 Minutes (minutes) Therapeutic Activity 1 Units Therapeutic Activity Treatment Therapeutic Activity Patient ambulated 200 feet with rollator SBA and Comments assistance required for IV pole. Total Physical Therapy Time Total Therapy 14 Minutes Total Physical 1 Therapy Units Summary Daily Note Summary Patient demonstrates increased distance with gait to 200 feet SBA using rollator and assistance required for IV pole. Reports feeling tired after walk but is able to complete seated exercises. Patient in bed with call light in reach and all needs met post treatment.
--- NOTE | 2024-09-17 10:52 | SWNOTE1 ---
SW reviewed therapy notes and pt did well, no anticipated discharge needs.
[2024-09-17] MEDS: BUDESONIDE 0.5 MG/2 ML AMPULE NEB IH ×2 (11:20→22:00)
[2024-09-17] MEDS: ALBUTEROL SULFATE 2.5 MG/3 ML VIAL NEB IH ×2 (11:22→22:00)
[2024-09-17] MEDS: DOXEPIN HCL 10 MG CAPSULE 20 MG PO (21:29)
[2024-09-17] MEDS: PRIMIDONE 50 MG TABLET 150 MG PO (21:29)
[2024-09-17] MEDS: AMITRIPTYLINE HCL 50 MG TABLET 300 MG PO (21:29)
[2024-09-18 03:00] VITALS: BP 145/86; PULSE 92; TEMP 36.8; O2SAT 97
[2024-09-18 05:24] LABS: Basophils Percent Auto 0.6 % (0.2-2.0); Eosinophils Absolute Auto 0.1 10^3/uL (0.0-0.7); Eosinophils Percent Auto 3.3 % (0.9-7.0); Hematocrit 30.3 % (36.0-48.0); Hemoglobin 9.2 g/dL (12.0-16.0); Immature Granulocytes Abs Auto 0.02 10^3/uL (0.00-0.03); Immature Granulocytes Pct Auto 0.6 % (0.0-0.5); Lymphocytes Absolute Auto 1.1 10^3/uL (1.2-3.8); Lymphocytes Percent Auto 31.9 % (20.5-60.0); Mean Corpuscular HGB Conc 30.4 g/dL (29.9-35.2); Mean Corpuscular Hemoglobin 30.5 pg (26.7-34.0); Mean Corpuscular Volume 100.3 fL (81.0-99.0); Mean Platelet Volume 8.9 fL (9.5-13.5); Monocytes Absolute Auto 0.3 10^3/uL (0.3-0.8); Monocytes Percent Auto 9.6 % (1.7-12.0); Neutrophils Absolute Auto 1.8 10^3/uL (1.4-6.5); Platelet Count 227 10^3/uL (150-450); Red Blood Count 3.02 10^6/uL (4.20-5.40); Red Cell Distribution Width 13.8 % (11.0-15.0); White Blood Count 3.3 10^3/uL (4.0-11.0)
[2024-09-18 05:33] LABS: Anion Gap 8.5; BUN Creatinine Ratio 23.6; Calcium 8.1 mg/dL (8.5-10.1); Carbon Dioxide 31.1 mmol/L (21.0-32.0); Chloride 102 mmol/L (98-107); Estimated GFR (African America 31 (>=60 mL/min/1.73m^2); Estimated GFR (Non-African Ame 25 (>=60 mL/min/1.73m^2); Glucose 150 mg/dL (74-106); Potassium 3.6 mmol/L (3.5-5.1); Sodium 138 mmol/L (136-145)
[2024-09-18] MEDS: LEVOTHYROXINE SODIUM 100 MCG TABLET PO (05:36)
[2024-09-18] MEDS: OXYCODONE HCL/ACETAMINOPHEN 5MG/325MG 2 TAB PO (06:40)
[2024-09-18 07:13] VITALS: BP 134/72; PULSE 82; TEMP 36.8; O2SAT 95
--- NOTE | 2024-09-18 07:50 | P.DS_ITS ---
DS: Providers Provider Date of admission: 09/15/24 21:45 Primary care physician: Yuri Godinez MD Consults: 09/15/24 21:08 Consult to Pharmacy Routine Consulting Provider: Clare Flores Reason for consultation: Levaquin dosing Has provider been notified: No 09/16/24 07:27 Occupational Therapy Eval and Treat Routine Reason for consultation: Only if needed for Rehab Has provider been notified: No Physical Therapy Eval and Treat Routine Reason for consultation: Eval and Treat Has provider been notified: No DS: Diagnosis Discharge Diagnosis (1) Peripheral edema: (2) Shortness of breath: (3) Fluid overload: (4) Lumbar stenosis with neurogenic claudication: (5) Chronic pain: (6) Lymphedema: (7) Anemia of chronic disease: (8) Chronic kidney disease: (9) Anxiety: (10) Hypothyroid: (11) COPD (chronic obstructive pulmonary disease): (12) HTN (hypertension): (13) CHF (congestive heart failure): Qualifiers: Heart failure chronicity: chronic Heart failure type: combined systolic and diastolic Qualified Code(s): I50.42 - Chronic combined systolic (congestive) and diastolic (congestive) heart failure (14) Neutropenia: (15) Elevated alkaline phosphatase level: Plan Admission findings: Uncontrolled hypertension, acute hyponatremia, acute elevation in alkaline phosphatase likely secondary to fluid overload with passive congestion in the liver, patient with 20 pound weight gain despite outpatient treatment with double dose of her oral diuretics and use of her lymphedema pumps Fluid overload lower extremities with fluid overload without overt heart failure-good suspect is much as expected, will repeat Bumex drip again today and then started again tonight, with about 2 hours in between, so far kidney function tolerating diuresis Possible bilateral lower extremity cellulitis-continue antibiotics, ultrasound negative for DVT Uncontrolled hypertension-improved from admission Neutropenia this a.m.-resolved Iron deficiency anemia as well as anemia of chronic kidney disease stage III- monitor daily, currently low but at her baseline Hyponatremia is evidence for fluid overload,-resolved Chronic kidney disease stage III-currently at her baseline Elevated alkaline phosphatase likely related to passive congestion-repeat labs later in the admission Hypothyroidism-continue with home medications Hypercholesterolemia continue with home medications Chronic lumbar radiculopathy continue with home medications Chronic anticoagulation for DVT as well as CVA-continue with home medications COPD with asthma-no acute exacerbation maintain home medications Restless leg syndrome continue with home medications Admission status: Patient with significant fluid overload with failed outpatient treatment with oral medications, medically necessary treatment will span 2 midnights, inpatient status ? DS: Summary Hospital Course Hospital Course: Patient was seen and evaluated in the emergency room with increasing shortness of breath and weight gain of 20 pounds, she contacted office 3 days prior we doubled her diuretics to 4 mg twice a day Bumex and increased dose of Aldactone, she did not have any significant increase in urine output, BNP was normal lung exam was clear but had significant fluid overload in her lower extremities and likely cellulitis left lower extremity, ultrasounds of lower extremities were negative for DVT, she was placed on Bumex drip on 3 occasions throughout the hospitalization with excellent diuresis of 10 L total with a net of 8 L. Creatinine starting to slightly elevated but is still within her baseline at 1.9. She does feel better with her ambulation, less shortness of breath, at this point she is medically stable for discharge to home, resume previous medication doses prior to the changes before admission. Restart Entresto. And Levaquin for antibiotics, she will see me in the office in 2 days Time Spent with Patient Time attestation: Total time spent providing and/or coordinating discharge services: Exam Constitutional Vital Signs, click to edit/add: Last Vital Signs Temp 98.2 F 09/18/24 07:13 Pulse 82 09/18/24 07:13 Resp 16 09/18/24 07:13 BP 134/72 09/18/24 07:13 Pulse Ox 95 09/18/24 07:13 O2 Del Method Room Air 09/18/24 07:13 Documenting provider has reviewed patient's vital signs: yes Common normals: no apparent distress Chest Common normals: inspection of chest normal Respiratory Common normals: normal respiratory effort, no retractions and clear to auscultation bilaterally Auscultation: no rales Cardio Common normals: regular rate and regular rhythm GI Common normals: soft to palpation and non-tender; negative for Normal to inspection, nondistended, normoactive bowel sounds present (Morbid obesity-unchanged) Extremity Common normals: abnormal to inspection (3+ swelling bilateral lower extremities with erythema L > R - improving-) DS: Data Data Completed and Pending Labs on day of discharge: Labs from last 24 hours 09/18/24 04:45 WBC 3.3 L RBC 3.02 L Hgb 9.2 L Hct 30.3 L MCV 100.3 H MCH 30.5 MCHC 30.4 RDW 13.8 Plt Count 227 MPV 8.9 L Neut % (Auto) 54.0 Lymph % (Auto) 31.9 [place] % (Auto) 9.6 Eos % (Auto) 3.3 Baso % (Auto) 0.6 Neut # (Auto) 1.8 Lymph # (Auto) 1.1 L [place] # (Auto) 0.3 Eos # (Auto) 0.1 Baso # (Auto) 0.0 Abs Immat Gran (auto) 0.02 Imm/Tot Granulo (auto) 0.6 H Sodium 138 Potassium 3.6 Chloride 102 Carbon Dioxide 31.1 Anion Gap 8.5 BUN 47.0 H Creatinine 1.99 H Est GFR ( Amer) 31 L Est GFR (Non-Af Amer) 25 L BUN/Creatinine Ratio 23.6 Glucose 150 H Calcium 8.1 L Preliminary micro results at discharge 09/15/24 19:13 Blood Culture Result 1 - Preliminary Blood - Port NO GROWTH AT 36-48 HOURS. FINAL TO FOLLOW. 09/15/24 19:50 Blood Culture Result 2 - Preliminary Blood - Port NO GROWTH AT 36-48 HOURS. FINAL TO FOLLOW. Discharge Plan Discharge Disposition: Home, Self-Care Condition: Good Discharge Medications: New Entresto 24-26 mg Tablet 1 tab PO BID Qty: 60 11RF levofloxacin 500 mg tablet 500 mg PO DAILY 10 Days Qty: 10 0RF Continued aripiprazole [Abilify] 2 mg tablet 2 mg PO DAILY bumetanide 1 mg tablet 4 mg PO Q12H butorphanol 10 mg/mL spray,non-aerosol 1 spray INTRANASAL .QD PRN (Reason: pain) desvenlafaxine succinate 50 mg tablet extended release 24 hr 50 mg PO DAILY diclofenac sodium 1 % gel 2 g TOPICAL .QD PRN (Reason: PAIN/INFLAMMATION) doxepin 10 mg capsule 20 mg PO BEDTIME escitalopram oxalate 20 mg tablet 20 mg PO DAILY azelastine 0.05 % drops 1 drp OPHTHALMIC (EYE) DAILY fentanyl 100 mcg/hr patch 72 hour 1 patch transdermal Q72H pramipexole 1 mg tablet 1 mg PO .qd atorvastatin 40 mg tablet 40 mg PO .HS sevelamer carbonate 800 mg tablet 800 mg PO BID fluticasone furoate-vilanterol [Breo Ellipta] 100-25 mcg/dose blister with device 1 inh INHALATION Q24H wksnoyveyl-lohdntohnzwkg-xhil 50-300-40 mg capsule 1 cap PO DAILY PRN (Reason: migraine headache) Eliquis 5 mg tablet 5 mg PO BID Rx Instructions: 2 po BID for 1 week then 1 po BID for life alprazolam 0.5 mg tablet 0.5 mg PO BID PRN (Reason: anxiety) amitriptyline 150 mg tablet 300 mg PO BEDTIME calcium acetate(phosphat bind) 667 mg capsule 667 mg PO BIDWM levothyroxine 100 mcg tablet 100 mcg PO DAILY Linzess 290 mcg capsule 290 mcg PO DAILY primidone 50 mg tablet 150 mg PO BEDTIME tizanidine [Zanaflex] 4 mg tablet 4 mg PO Q6H PRN (Reason: muscle spasticity) oxycodone-acetaminophen 5-325 mg tablet 2 tab PO Q6H PRN (Reason: pain) Entresto 49-51 mg tablet 1 tab PO BID spironolactone 50 mg tablet 50 mg PO Q12H Print Language: Rwandan Forms: Portal Instructions
[2024-09-18] MEDS: CALCIUM ACETATE 667 MG CAPSULE PO (08:17)
[2024-09-18] MEDS: SEVELAMER CARBONATE 800 MG TABLET PO (08:17)
[2024-09-18] MEDS: ARIPIPRAZOLE 2 MG TABLET PO (08:17)
[2024-09-18] MEDS: ESCITALOPRAM 10 MG TABLET 20 MG PO (08:17)
[2024-09-18] MEDS: SPIRONOLACTONE 25 MG TABLET 50 MG PO (08:17)
[2024-09-18] MEDS: DESVENLAFAXINE SUCCINATE 50 MG TAB.ER.24H PO (08:17)
[2024-09-18] MEDS: ALPRAZOLAM 0.5 MG TABLET PO (08:17)
[2024-09-18] MEDS: SACUBITRIL/VALSARTAN 24 MG-26 MG TABLET 1 TAB PO (08:17)
[2024-09-18] MEDS: PRAMIPEXOLE 1 MG TABLET PO (08:17)
[2024-09-18] MEDS: BENZONATATE 100 MG CAPSULE 200 MG PO (08:17)
[2024-09-18] MEDS: APIXABAN 5 MG TABLET PO (08:17)
[2024-09-18] MEDS: FENTANYL 50 MCG/HR PATCH.TD72 100 MCG TD (08:20)
--- NOTE | 2024-09-20 13:46 | CM.DCFOLLOWU ---
Person spoke with: patient How are you feeling? better, improving How is your pain? none Did you understand your discharge instructions?yes Do you have any questions about your discharge instructions? no Were you given any prescriptions at discharge?yes Were you able to get your prescriptions filled?getting them today as she had left over meds from previous Do you understand how to take your medications as ordered?yes Do you have any questions about your follow up appointment and do you plan to keep your follow up appointment? no questions, had follow up today Is there anything else that you would like to discuss?no Questions/Comments/Concerns/Other:none
== END 2024-09-18 11:00 | disposition home or self-care (01) | DRG 641 ==
LOC: ER 21:17 → MS 09-16 06:52
PROVIDERS: Emergency Medicine; Physician Assistant; Registered Nurse; Admitting Provider Family Medicine; Emergency Provider Internal Medicine; PCP Family Medicine; Visit Provider Family Medicine
DX: E87.70 Fluid overload, unspecified (principal); I13.0 Hypertensive heart and chronic kidney disease with heart failure and stage 1 through stage 4 chronic kidney disease, or unspecified chronic kidney disease; I50.42 Chronic combined systolic (congestive) and diastolic (congestive) heart failure; L03.116 Cellulitis of left lower limb; L03.115 Cellulitis of right lower limb; I89.0 Lymphedema, not elsewhere classified; E87.1 Hypo-osmolality and hyponatremia; N18.30 Chronic kidney disease, stage 3 unspecified; G89.29 Other chronic pain; M48.062 Spinal stenosis, lumbar region with neurogenic claudication; D63.1 Anemia in chronic kidney disease; F41.9 Anxiety disorder, unspecified; E03.9 Hypothyroidism, unspecified; D70.9 Neutropenia, unspecified; K76.1 Chronic passive congestion of liver; D50.9 Iron deficiency anemia, unspecified; E78.00 Pure hypercholesterolemia, unspecified; J44.89 Other specified chronic obstructive pulmonary disease; G25.81 Restless legs syndrome; I87.2 Venous insufficiency (chronic) (peripheral); Z79.899 Other long term (current) drug therapy; Z79.891 Long term (current) use of opiate analgesic; Z79.01 Long term (current) use of anticoagulants; Z86.711 Personal history of pulmonary embolism; Z86.718 Personal history of other venous thrombosis and embolism; I25.2 Old myocardial infarction; Z98.1 Arthrodesis status; Z79.890 Hormone replacement therapy; Z88.1 Allergy status to other antibiotic agents; Z88.2 Allergy status to sulfonamides; Z88.8 Allergy status to other drugs, medicaments and biological substances; Z23 Encounter for immunization; F17.290 Nicotine dependence, other tobacco product, uncomplicated
CPT/HCPCS: 36415; 36591; 36592; 71045; 80048; 80053; 82800; 83605; 83735; 83880; 84484; 85025; 85027; 85610; 87040; 87804; 87811; 90674; 90677; 93005; 93970; 94640; 94667; 94668; 94761; 96365; 97161; 97165; 97530; 97535; 99285; 99406; G0378

== ENCOUNTER 2024-10-07 08:44 | Day surgery (SDC) | payer MEDICARE, MEDICAID, SELFPAY ==
[2024-10-07 08:52] VITALS: BP 152/94; PULSE 78; TEMP 36.7; O2SAT 100
[2024-10-07 09:36] VITALS: BP 153/79; BP 173/79; PULSE 83; PULSE 85; O2SAT 98
--- NOTE | 2024-10-07 09:39 | W.PM.PROCNOT ---
Date of procedure: 10/07/24 Pre-op diagnosis: Pain due to right sacroiliitis Post-op diagnosis: same as pre-op Procedure: Procedure: Right sacroiliac joint injection Medications: Bupivacaine 0.25% 3cc, depomedrol 40mg After informed consent was obtained, the patient was brought to the medical procedure unit and placed in the prone position, when a timeout was completed verifying correct patient, procedure, site, positioning, implant, and/or special equipment.? The skin overlying the area was prepped and draped in standard sterile fashion using alcohol.? A 25-gauge needle was inserted towards the right sacroiliac joint under direct fluoroscopic imaging.? Needle tip was advanced until the joint was encountered.? We instilled a total of 2 mL of solution.? Postoperatively needles were removed.? The patient tolerated the procedure well without complication.? The patient reported reduction in pain symptoms postoperatively. Anesthesia: Local Surgeon: Riki Smith Pathology: none sent Condition: stable Disposition: no change
[2024-10-07] MEDS: LIDOCAINE HCL 2% 400 MG/20 ML MDV INJ (09:40)
[2024-10-07] MEDS: BUPIVACAINE HCL 0.25% PF 25 MG/10 ML VIAL 2 ML INJ (09:40)
[2024-10-07] MEDS: METHYLPREDNISOLONE ACETATE 40 MG/ML VIAL INJ (09:40)
[2024-10-07] MEDS: IOHEXOL 240 MG/ML - 10 ML VIAL 24 MG INJ (09:40)
== END 2024-10-07 09:50 | disposition home or self-care (01) ==
PROVIDERS: PCP Family Medicine; Visit Provider Anesthesiology
DX: M46.1 Sacroiliitis, not elsewhere classified (principal); L97.422 Non-pressure chronic ulcer of left heel and midfoot with fat layer exposed
CPT/HCPCS: 27096; J0665; J1010; Q9966

== ENCOUNTER 2024-10-15 07:44 | Outpatient (RCR) | payer MEDICARE, MEDICAID, SELFPAY ==
--- NOTE | 2024-09-27 11:22 | PC.NURSE ---
labs drawn from port. see documentation in infusion account
[2024-09-27 12:57] LABS: Percent Iron Saturation 26.2 %
[2024-10-15] MEDS: EPOETIN ALFA-EPBX 20,000 UNIT/ML VIAL 20000 UNIT SUBQ (10:50)
[2024-10-15] MEDS: HEPARIN SODIUM (PORCINE) PF LOCK FLUSH 500 UNIT/5 ML SYRINGE IV (10:50)
--- NOTE | 2024-10-15 15:04 | PC.NURSE ---
1000 Arrival ambulatory for lab draw for Dr. Godinez as well as appt with Dr. monique (lab draws and injection. Rt chest port accessed utilizing #20 ga 3/4 in james needle using sterile technique, excellent blood return noted. labs drawn and sent to lab. patient tolerated well. flushed port with ns followed by heparin lock soln. tolerated well. 1100 Injection per L Miquel RN see aug.
== END 2024-10-23 23:59 | disposition home or self-care (01) ==
LOC: HEMC 07:44
PROVIDERS: PCP Family Medicine; Visit Provider Internal Medicine Hematology & Oncology
DX: N18.32 Chronic kidney disease, stage 3b (principal); D63.1 Anemia in chronic kidney disease; D50.9 Iron deficiency anemia, unspecified; K90.9 Intestinal malabsorption, unspecified; Z98.84 Bariatric surgery status; Z90.49 Acquired absence of other specified parts of digestive tract; Z90.710 Acquired absence of both cervix and uterus; I50.30 Unspecified diastolic (congestive) heart failure; Z79.899 Other long term (current) drug therapy
CPT/HCPCS: 36591; 82728; 83540; 83550; 96372; G0463; J1642; Q5106

== ENCOUNTER 2024-10-15 16:01 | Inpatient (IN) | payer MEDICARE, MEDICAID, SELFPAY ==
[2024-10-15] VITALS (14 sets, daily range): BP systolic 119–179; BP diastolic 70–94; PULSE 76–93; TEMP 36.5–37.2; O2SAT 87–100; BMI 90.3; BMI 40.8
--- NOTE | 2024-10-15 16:26 | ECG_ITS ---
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
--- NOTE | 2024-10-15 16:29 | ED_ITS ---
HPI HPI - General Adult General Chief complaint: Shortness of Breath/Dyspnea Stated complaint: GUMARO LEG EDEMA Time Seen by Provider: 10/15/24 16:05 Source: patient Mode of arrival: walk-in Limitations: no limitations History of Present Illness HPI narrative: 64-year-old female presents for leg swelling. She states that she has been having the swelling for about a year but over the past couple months and in particular the last week its gotten worse. She saw her aircraft mechanic electrical and radio today. The patient states her aircraft mechanic electrical and radio spoke to her PCP who told her to come to the emergency department. She is not complaining of shortness of breath except with exertion. She has been using compression device at home 4 times a day but it does not seem to be helping. She is taking all of her medications. No trauma or chest pain or fever. Related Data Home Medications ?Medication ?Instructions ?Recorded ?Confirmed alprazolam 0.5 mg tablet 0.5 mg PO BID PRN anxiety 12/08/22 10/15/24 amitriptyline 150 mg tablet 300 mg PO BEDTIME 12/08/22 10/15/24 calcium acetate(phosphat bind) 667 667 mg PO BIDWM 12/08/22 10/07/24 mg capsule levothyroxine 100 mcg tablet 100 mcg PO DAILY 12/08/22 10/15/24 linaclotide 290 mcg capsule 290 mcg PO DAILY 12/08/22 10/15/24 (Linzess) oxycodone-acetaminophen 5 mg-325 2 tab PO Q6H PRN pain 12/08/22 10/15/24 mg tablet primidone 50 mg tablet 150 mg PO BEDTIME 12/08/22 10/15/24 tizanidine 4 mg tablet (Zanaflex) 4 mg PO Q6H PRN muscle spasticity 12/08/22 10/15/24 azelastine 0.05 % eye drops 1 drp ophthalmic (eye) DAILY 09/29/23 10/15/24 desvenlafaxine succinate 50 mg 50 mg PO DAILY 09/29/23 10/15/24 tablet,extended release 24 hr doxepin 10 mg capsule 20 mg PO BEDTIME 09/29/23 10/15/24 escitalopram oxalate 20 mg tablet 20 mg PO DAILY 09/29/23 10/15/24 fentanyl 100 mcg/hr transdermal 1 patch transdermal Q72H 10/12/23 10/15/24 patch pramipexole 1 mg tablet 1 mg PO .QHS 10/23/23 10/15/24 sacubitril 49 mg-valsartan 51 mg 1 tab PO BID 01/04/24 10/15/24 tablet (Entresto) apixaban 5 mg tablet (Eliquis) 5 mg PO BID 03/29/24 10/15/24 sevelamer carbonate 800 mg tablet 800 mg PO BID 03/29/24 10/07/24 calcitriol 0.5 mcg capsule 0.5 mcg PO DAILY 10/07/24 10/15/24 torsemide 100 mg tablet 100 mg PO DAILY 10/07/24 10/15/24 bumetanide 2 mg tablet 2 mg PO BID 10/15/24 10/15/24 lkempupjxa-iyysklelpalck-sxdzicek 1 tab PO BID PRN migraine headache 10/15/24 10/15/24 50 mg-325 mg-40 mg tablet liothyronine 25 mcg tablet 25 mcg PO DAILY 10/15/24 10/15/24 Allergies Allergy/AdvReac Type Severity Reaction Status Date / Time povidone-iodine (From Allergy Intermediate Rash Verified 10/15/24 16:19 Betadine) amoxicillin (From Augmentin) AdvReac Mild Vomiting Verified 10/15/24 16:19 clavulanic acid (From AdvReac Mild Vomiting Verified 10/15/24 16:19 Augmentin) Sulfa (Sulfonamide AdvReac Mild Vomiting Verified 10/15/24 16:19 Antibiotics) ciprofloxacin (From Cipro) AdvReac Unknown Vomiting Verified 10/15/24 16:19 Opioid HPI Opioid Management Most Recent Opioid Data: Last Pain Scale 7 10/07/24 08:52 10/07/24 Last ORT Total Score 0 09/15/24 22:00 09/15/24 Last ORT Risk Category Low Risk 09/15/24 22:00 09/15/24 Review of Systems ROS Narrative A ten point review of systems is negative except as noted above. [facility] Medical History Hyperglycemia ?R73.9 - Hyperglycemia, unspecified (ICD-10) Recurrent UTI ?N39.0 - Urinary tract infection, site not specified (ICD-10) Atelectasis of both lungs ?J98.11 - Atelectasis (ICD-10) C2 cervical fracture ?S12.100A - Unspecified displaced fracture of second cervical vertebra, initial encounter for closed fracture (ICD-10) Shoulder pain, left ?M25.512 - Pain in left shoulder (ICD-10) Pulmonary embolism ?I26.99 - Other pulmonary embolism without acute cor pulmonale (ICD-10) DVT (deep venous thrombosis) ?I82.409 - Acute embolism and thrombosis of unspecified deep veins of unspecified lower extremity (ICD-10) Osteoporosis ?M81.0 - Age-related osteoporosis without current pathological fracture (ICD- 10) Seizures ?R56.9 - Unspecified convulsions (ICD-10) IBS (irritable bowel syndrome) ?K58.9 - Irritable bowel syndrome without diarrhea (ICD-10) D-dimer, elevated ?R79.89 - Other specified abnormal findings of blood chemistry (ICD-10) Chronic kidney insufficiency ?N18.9 - Chronic kidney disease, unspecified (ICD-10) Fluid overload ?E87.70 - Fluid overload, unspecified (ICD-10) Lymphedema ?I89.0 - Lymphedema, not elsewhere classified (ICD-10) Volume overload ?E87.70 - Fluid overload, unspecified (ICD-10) Anemia of chronic disease ?D63.8 - Anemia in other chronic diseases classified elsewhere (ICD-10) Chronic kidney disease ?N18.9 - Chronic kidney disease, unspecified (ICD-10) Acute kidney injury ?N17.9 - Acute kidney failure, unspecified (ICD-10) Edema of lower leg due to peripheral venous insufficiency ?I87.2 - Venous insufficiency (chronic) (peripheral) (ICD-10) ?R60.0 - Localized edema (ICD-10) Depression ?F32.A - Depression, unspecified (ICD-10) Gastroenteritis ?K52.9 - Noninfective gastroenteritis and colitis, unspecified (ICD-10) Migraine without aura and without status migrainosus, not intractable ?G43.009 - Migraine without aura, not intractable, without status migrainosus (ICD-10) Chronic heart failure with preserved ejection fraction (HFpEF) ?I50.32 - Chronic diastolic (congestive) heart failure (ICD-10) Chest pain ?R07.9 - Chest pain, unspecified (ICD-10) Dyspnea ?R06.00 - Dyspnea, unspecified (ICD-10) Osteoarthritis ?M19.90 - Unspecified osteoarthritis, unspecified site (ICD-10) Anemia ?D64.9 - Anemia, unspecified (ICD-10) Anxiety ?F41.9 - Anxiety disorder, unspecified (ICD-10) Stroke ?I63.9 - Cerebral infarction, unspecified (ICD-10) Acid reflux ?K21.9 - Gastro-esophageal reflux disease without esophagitis (ICD-10) Hypothyroid ?E03.9 - Hypothyroidism, unspecified (ICD-10) COPD (chronic obstructive pulmonary disease) ?J44.9 - Chronic obstructive pulmonary disease, unspecified (ICD-10) Asthma ?J45.909 - Unspecified asthma, uncomplicated (ICD-10) CHF (congestive heart failure) ?I50.9 - Heart failure, unspecified (ICD-10) Irregular heart beat ?I49.9 - Cardiac arrhythmia, unspecified (ICD-10) HTN (hypertension) ?I10 - Essential (primary) hypertension (ICD-10) Heart attack ?I21.9 - Acute myocardial infarction, unspecified (ICD-10) Lumbar spondylosis ?M47.816 - Spondylosis without myelopathy or radiculopathy, lumbar region (ICD-10) Surgical History H/O cervical spinal arthrodesis ?Z98.1 - Arthrodesis status (ICD-10) Port-A-Cath in place ?Z95.828 - Presence of other vascular implants and grafts (ICD-10) History of lumbar fusion ?Z98.1 - Arthrodesis status (ICD-10) H/O hysterectomy with oophorectomy H/O gastric bypass ?Z98.84 - Bariatric surgery status (ICD-10) History of hernia repair ?Z98.890 - Other specified postprocedural states (ICD-10) ?Z87.19 - Personal history of other diseases of the digestive system (ICD-10) History of rotator cuff surgery ?Z98.890 - Other specified postprocedural states (ICD-10) History of right knee joint replacement ?Z96.651 - Presence of right artificial knee joint (ICD-10) History of appendectomy ?Z90.49 - Acquired absence of other specified parts of digestive tract (ICD- 10) Hx of cholecystectomy ?Z90.49 - Acquired absence of other specified parts of digestive tract (ICD- 10) Family History Father Family history of CHF (congestive heart failure) Family history of diabetes mellitus Family history of hypertension Family history of myocardial infarction Family history of stroke Mother Family history of CHF (congestive heart failure) Family history of COPD (chronic obstructive pulmonary disease) Family history of diabetes mellitus Family history of hypertension Family history of myocardial infarction Family history of stroke Social History (Updated 09/15/24 @ 22:10 by Rosa Isela Marroquin RN) Within the past year, how often did you have a drink containing alcohol: never Within the past year, how often did you have six or more drinks on one occasion: never Score interpretation: A score less than 3 is consistent with normal alcohol consumption. 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 Highest level of school completed/degree received: some college, no degree Are you now , , , , never or living with a partner: In a typical week, how many times do you talk on the telephone with family, friends, or neighbors: 3 or more times per week How often do you get together with friends or relatives: twice per week How often do you attend pentecostal or hindu services: 4 or more times per year Do you belong to any clubs or organizations such as pentecostal groups unions, fraternal or athletic groups, or school groups: no Total score: 3 Score interpretation: A score of greater than or equal to 2 indicates the lowest level of social isolation. Little interest or pleasure in doing things: not at all Feeling down, depressed, or hopeless: not at all Feel stressed/tense/nervous/anxious/difficulty sleeping: to some extent Life stressors: recent of family or friend Do you think of yourself as: straight/heterosexual Gender Identity: female Exam Narrative Exam Narrative: Nurses note and vital signs reviewed and patient is not hypoxic. General: The patient appears in no apparent distress. Patient is resting comfortably on cart. Skin: Warm, dry, no pallor noted. There is no rash noted. Head: Normocephalic, atraumatic Eye: Normal conjunctiva, no drainage Ears, Nose, Mouth, and Throat: oral mucosa is moist. Nares patent. Cardiovascular: Regular Rate and Rhythm, not tachycardic Respiratory: Patient is in no distress, no accessory muscle use, lungs are clear to auscultation, no wheezing, rales or rhonchi Back: non-tender GI: Soft and nontender Musculoskeletal: There is no erythema of the skin of her legs nor any open area or drainage. She seems to have bilateral lower extremity edema. Neurological: A&O, normal speech Psychiatric: Cooperative Constitutional Vital Signs, click to edit/add: Last Vital Signs Temp 99 F 10/15/24 16:11 Pulse 77 10/15/24 17:00 Resp 14 10/15/24 17:00 BP 131/75 10/15/24 17:00 Pulse Ox 97 10/15/24 17:00 Course Vital Signs Vital signs: Vital Signs Temperature 99 F 10/15/24 16:11 Pulse Rate 93 H 10/15/24 16:11 Respiratory Rate 20 10/15/24 16:11 Blood Pressure 152/84 H 10/15/24 16:11 Pulse Oximetry 99 10/15/24 16:11 Temperature 99 F 10/15/24 16:11 Pulse Rate 77 10/15/24 17:00 Respiratory Rate 14 10/15/24 17:00 Blood Pressure 131/75 10/15/24 17:00 Pulse Oximetry 97 10/15/24 17:00 Medical Decision Making MDM Narrative Medical decision making narrative: CBC and BMP from earlier today were reviewed. BN P today is not elevated significantly. Case is discussed with Dr. Godinez and she is being admitted for IV diuresis. Treatment diagnosis and disposition were discussed with the patient. Differential Diagnosis Differential Diagnosis: Peripheral edema, heart failure Medical Records Medical records reviewed: Yes I reviewed the patient's medical records Lab Data Lab results reviewed: Yes I reviewed the patient's lab results Labs: Lab Results 10/15/24 Range/Units 16:35 NT-Pro-B Natriuret Pep 433.0 (<=900.0) pg/mL Imaging Data Chest x-ray: My impression: No acute findings ECG Data Attestation: I personally reviewed and interpreted this ECG as follows: (EKG on my interpretation shows sinus rhythm with a rate of 83 and no acute change) Discharge Plan Discharge Chief Complaint: Shortness of Breath/Dyspnea Clinical Impression: Peripheral edema Patient Disposition: Admitted As Inpatient Time of Disposition Decision: 17:28 Condition: Fair Prescriptions / Home Meds: No Action desvenlafaxine succinate 50 mg tablet extended release 24 hr 50 mg PO DAILY doxepin 10 mg capsule 20 mg PO BEDTIME escitalopram oxalate 20 mg tablet 20 mg PO DAILY azelastine 0.05 % drops 1 drp OPHTHALMIC (EYE) DAILY fentanyl 100 mcg/hr patch 72 hour 1 patch transdermal Q72H pramipexole 1 mg tablet 1 mg PO .QHS sevelamer carbonate 800 mg tablet 800 mg PO BID Eliquis 5 mg tablet 5 mg PO BID torsemide 100 mg tablet 100 mg PO DAILY calcitriol 0.5 mcg capsule 0.5 mcg PO DAILY alprazolam 0.5 mg tablet 0.5 mg PO BID PRN (Reason: anxiety) amitriptyline 150 mg tablet 300 mg PO BEDTIME calcium acetate(phosphat bind) 667 mg capsule 667 mg PO BIDWM levothyroxine 100 mcg tablet 100 mcg PO DAILY Linzess 290 mcg capsule 290 mcg PO DAILY primidone 50 mg tablet 150 mg PO BEDTIME tizanidine [Zanaflex] 4 mg tablet 4 mg PO Q6H PRN (Reason: muscle spasticity) oxycodone-acetaminophen 5-325 mg tablet 2 tab PO Q6H PRN (Reason: pain) Entresto 49-51 mg tablet 1 tab PO BID bumetanide 2 mg tablet 2 mg PO BID qvetofswgl-tdctenozhebhv-zhdc 50-325-40 mg tablet 1 tab PO BID PRN (Reason: migraine headache) liothyronine 25 mcg tablet 25 mcg PO DAILY Print Language: Chinese Referrals: Yuri Godinez MD [Primary Care Provider] - 1 week
--- NOTE | 2024-10-15 18:00 | P.HP_ITS ---
HPI H&P: HPI History of Present Illness Chief complaint: GUMARO LEG EDEMA Narrative: Patient contacted the office through a specialist, weight is up 10 pounds, increasing dyspnea secondary to the weight, difficulty ambulating secondary to the increase in weight and pain in her legs. When I saw patient in the emergency room, resting comfortably bed, does have pain and dyspnea with activity in her lower extremities. This is consistent with her previous history of fluid overload, patient will be admitted for workup and treatment of same Opioid HPI Opioid Management Most Recent Pain and Opioid Data: Last Pain Scale 7 10/07/24 08:52 10/07/24 Last ORT Total Score 0 09/15/24 22:00 09/15/24 Last ORT Risk Category Low Risk 09/15/24 22:00 09/15/24 Review of Systems ROS Status of ROS 10 or more systems reviewed and unremark able except as noted in history and below [facility] Medical History Hyperglycemia ?R73.9 - Hyperglycemia, unspecified (ICD-10) Recurrent UTI ?N39.0 - Urinary tract infection, site not specified (ICD-10) Atelectasis of both lungs ?J98.11 - Atelectasis (ICD-10) C2 cervical fracture ?S12.100A - Unspecified displaced fracture of second cervical vertebra, initial encounter for closed fracture (ICD-10) Shoulder pain, left ?M25.512 - Pain in left shoulder (ICD-10) Pulmonary embolism ?I26.99 - Other pulmonary embolism without acute cor pulmonale (ICD-10) DVT (deep venous thrombosis) ?I82.409 - Acute embolism and thrombosis of unspecified deep veins of unspecified lower extremity (ICD-10) Osteoporosis ?M81.0 - Age-related osteoporosis without current pathological fracture (ICD- 10) Seizures ?R56.9 - Unspecified convulsions (ICD-10) IBS (irritable bowel syndrome) ?K58.9 - Irritable bowel syndrome without diarrhea (ICD-10) D-dimer, elevated ?R79.89 - Other specified abnormal findings of blood chemistry (ICD-10) Chronic kidney insufficiency ?N18.9 - Chronic kidney disease, unspecified (ICD-10) Fluid overload ?E87.70 - Fluid overload, unspecified (ICD-10) Lymphedema ?I89.0 - Lymphedema, not elsewhere classified (ICD-10) Volume overload ?E87.70 - Fluid overload, unspecified (ICD-10) Anemia of chronic disease ?D63.8 - Anemia in other chronic diseases classified elsewhere (ICD-10) Chronic kidney disease ?N18.9 - Chronic kidney disease, unspecified (ICD-10) Acute kidney injury ?N17.9 - Acute kidney failure, unspecified (ICD-10) Edema of lower leg due to peripheral venous insufficiency ?I87.2 - Venous insufficiency (chronic) (peripheral) (ICD-10) ?R60.0 - Localized edema (ICD-10) Depression ?F32.A - Depression, unspecified (ICD-10) Gastroenteritis ?K52.9 - Noninfective gastroenteritis and colitis, unspecified (ICD-10) Migraine without aura and without status migrainosus, not intractable ?G43.009 - Migraine without aura, not intractable, without status migrainosus (ICD-10) Chronic heart failure with preserved ejection fraction (HFpEF) ?I50.32 - Chronic diastolic (congestive) heart failure (ICD-10) Chest pain ?R07.9 - Chest pain, unspecified (ICD-10) Dyspnea ?R06.00 - Dyspnea, unspecified (ICD-10) Osteoarthritis ?M19.90 - Unspecified osteoarthritis, unspecified site (ICD-10) Anemia ?D64.9 - Anemia, unspecified (ICD-10) Anxiety ?F41.9 - Anxiety disorder, unspecified (ICD-10) Stroke ?I63.9 - Cerebral infarction, unspecified (ICD-10) Acid reflux ?K21.9 - Gastro-esophageal reflux disease without esophagitis (ICD-10) Hypothyroid ?E03.9 - Hypothyroidism, unspecified (ICD-10) COPD (chronic obstructive pulmonary disease) ?J44.9 - Chronic obstructive pulmonary disease, unspecified (ICD-10) Asthma ?J45.909 - Unspecified asthma, uncomplicated (ICD-10) CHF (congestive heart failure) ?I50.9 - Heart failure, unspecified (ICD-10) Irregular heart beat ?I49.9 - Cardiac arrhythmia, unspecified (ICD-10) HTN (hypertension) ?I10 - Essential (primary) hypertension (ICD-10) Heart attack ?I21.9 - Acute myocardial infarction, unspecified (ICD-10) Lumbar spondylosis ?M47.816 - Spondylosis without myelopathy or radiculopathy, lumbar region (ICD-10) Surgical History H/O cervical spinal arthrodesis ?Z98.1 - Arthrodesis status (ICD-10) Port-A-Cath in place ?Z95.828 - Presence of other vascular implants and grafts (ICD-10) History of lumbar fusion ?Z98.1 - Arthrodesis status (ICD-10) H/O hysterectomy with oophorectomy H/O gastric bypass ?Z98.84 - Bariatric surgery status (ICD-10) History of hernia repair ?Z98.890 - Other specified postprocedural states (ICD-10) ?Z87.19 - Personal history of other diseases of the digestive system (ICD-10) History of rotator cuff surgery ?Z98.890 - Other specified postprocedural states (ICD-10) History of right knee joint replacement ?Z96.651 - Presence of right artificial knee joint (ICD-10) History of appendectomy ?Z90.49 - Acquired absence of other specified parts of digestive tract (ICD- 10) Hx of cholecystectomy ?Z90.49 - Acquired absence of other specified parts of digestive tract (ICD- 10) Family History Father Family history of CHF (congestive heart failure) Family history of diabetes mellitus Family history of hypertension Family history of myocardial infarction Family history of stroke Mother Family history of CHF (congestive heart failure) Family history of COPD (chronic obstructive pulmonary disease) Family history of diabetes mellitus Family history of hypertension Family history of myocardial infarction Family history of stroke Social History (Updated 09/15/24 @ 22:10 by Rosa Isela Marroquin RN) Within the past year, how often did you have a drink containing alcohol: never Within the past year, how often did you have six or more drinks on one occasion: never Score interpretation: A score less than 3 is consistent with normal alcohol consumption. 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 Highest level of school completed/degree received: some college, no degree Are you now , , , , never or living with a partner: In a typical week, how many times do you talk on the telephone with family, friends, or neighbors: 3 or more times per week How often do you get together with friends or relatives: twice per week How often do you attend anabaptism or spiritism services: 4 or more times per year Do you belong to any clubs or organizations such as anabaptism groups unions, [employer] or athletic groups, or school groups: no Total score: 3 Score interpretation: A score of greater than or equal to 2 indicates the lowest level of social isolation. Little interest or pleasure in doing things: not at all Feeling down, depressed, or hopeless: not at all Feel stressed/tense/nervous/anxious/difficulty sleeping: to some extent Life stressors: recent of family or friend Do you think of yourself as: straight/heterosexual Gender Identity: female Meds Home Medications and Allergies Home Medications ?Medication ?Instructions ?Recorded ?Confirmed ?Type alprazolam 0.5 mg tablet 0.5 mg PO BID PRN anxiety 12/08/22 10/15/24 History amitriptyline 150 mg tablet 300 mg PO BEDTIME 12/08/22 10/15/24 History calcium acetate(phosphat bind) 667 667 mg PO BIDWM 12/08/22 10/07/24 History mg capsule levothyroxine 100 mcg tablet 100 mcg PO DAILY 12/08/22 10/15/24 History linaclotide 290 mcg capsule 290 mcg PO DAILY 12/08/22 10/15/24 History (Linzess) oxycodone-acetaminophen 5 mg-325 2 tab PO Q6H PRN pain 12/08/22 10/15/24 History mg tablet primidone 50 mg tablet 150 mg PO BEDTIME 12/08/22 10/15/24 History tizanidine 4 mg tablet (Zanaflex) 4 mg PO Q6H PRN muscle spasticity 12/08/22 10/15/24 History azelastine 0.05 % eye drops 1 drp ophthalmic (eye) DAILY 09/29/23 10/15/24 History desvenlafaxine succinate 50 mg 50 mg PO DAILY 09/29/23 10/15/24 History tablet,extended release 24 hr doxepin 10 mg capsule 20 mg PO BEDTIME 09/29/23 10/15/24 History escitalopram oxalate 20 mg tablet 20 mg PO DAILY 09/29/23 10/15/24 History fentanyl 100 mcg/hr transdermal 1 patch transdermal Q72H 10/12/23 10/15/24 History patch pramipexole 1 mg tablet 1 mg PO .QHS 10/23/23 10/15/24 History sacubitril 49 mg-valsartan 51 mg 1 tab PO BID 01/04/24 10/15/24 History tablet (Entresto) apixaban 5 mg tablet (Eliquis) 5 mg PO BID 03/29/24 10/15/24 History sevelamer carbonate 800 mg tablet 800 mg PO BID 03/29/24 10/07/24 History calcitriol 0.5 mcg capsule 0.5 mcg PO DAILY 10/07/24 10/15/24 History torsemide 100 mg tablet 100 mg PO DAILY 10/07/24 10/15/24 History bumetanide 2 mg tablet 2 mg PO BID 10/15/24 10/15/24 History hpykgilrzx-xpxshyvmokhem-qimogyzq 1 tab PO BID PRN migraine headache 10/15/24 10/15/24 History 50 mg-325 mg-40 mg tablet liothyronine 25 mcg tablet 25 mcg PO DAILY 10/15/24 10/15/24 History Allergies Allergy/AdvReac Type Severity Reaction Status Date / Time povidone-iodine (From Allergy Intermediate Rash Verified 10/15/24 16:19 Betadine) amoxicillin (From Augmentin) AdvReac Mild Vomiting Verified 10/15/24 16:19 clavulanic acid (From AdvReac Mild Vomiting Verified 10/15/24 16:19 Augmentin) Sulfa (Sulfonamide AdvReac Mild Vomiting Verified 10/15/24 16:19 Antibiotics) ciprofloxacin (From Cipro) AdvReac Unknown Vomiting Verified 10/15/24 16:19 Exam Constitutional Vital Signs, click to edit/add: Last Vital Signs Temp 99 F 10/15/24 16:11 Pulse 83 10/15/24 17:30 Resp 18 10/15/24 17:30 BP 119/94 H 10/15/24 17:30 Pulse Ox 96 10/15/24 17:30 Documenting provider has reviewed patient's vital signs: yes Common normals: no apparent distress Chest Common normals: inspection of chest normal and palpation of chest normal Respiratory Common normals: no retractions and no use of accessory muscles Cardio Common normals: regular rate, regular rhythm and S1 normal heart sound GI Common normals: soft to palpation; negative for Normal to inspection, nondistended, normoactive bowel sounds present (Obesity, morbid) Back & Pelvis Common normals: no CVA tenderness and thoracic and lumbar spine normal to inspection Extremity Common normals: abnormal to inspection (4+ edema, increased from her baseline of 2+) Assessment and Plan Assessment and Plan (1) Peripheral edema: (2) Sinus tachycardia: (3) Lumbar radiculopathy: (4) Knee osteoarthritis: (5) Peripheral edema: (6) Shortness of breath: (7) Fluid overload: (8) Lymphedema: (9) Dyspnea: (10) Anemia: Plan Admit findings: Uncontrolled hypertension, sinus tachycardia, normal BNP but increased weight, up 12 to 15 pounds from her baseline, also acute elevation in creatinine at 2.11, history of chronic kidney disease, patient failed outpatient treatment she doubled her doses of her diuretics that she has in the past without any significant improvement in her weight, x-ray is worse today at 4 more pounds in the previous day. Fluid overload without overt heart failure-patient responded well to Bumex drip in the past, she has failed outpatient oral Bumex and torsemide. Repeat labs in a.m. Chronic kidney disease stage III-likely to deteriorate slightly secondary to the need for Bumex drip Lymphedema-this is worse than her baseline lymphedema, she has been using her lymphedema pumps but no improvement in her edema Iron deficiency anemia as well as anemia of chronic kidney disease-monitor daily Generalized anxiety disorder continue with home medications Insomnia-continue with home medications Lumbar radiculopathy continue with home medications Hypothyroidism continue with home medications Constipation continue with home medications Restless leg syndrome continue with home medications Admission status: Patient with recurrent history of acute fluid overload complicated by lymphedema, this is usually at least a 2-day event most of the time it takes 3 days, since medically necessary treatment will span 2 midnights will start patient off as inpatient status
[2024-10-15] MEDS: OXYCODONE HCL/ACETAMINOPHEN 5MG/325MG 2 TAB PO (20:08)
[2024-10-15] MEDS: SACUBITRIL/VALSARTAN 24 MG-26 MG TABLET 2 TAB PO (20:09)
[2024-10-15] MEDS: SEVELAMER CARBONATE 800 MG TABLET PO (20:09)
[2024-10-15] MEDS: BUMETANIDE 10 MG in 0.9 % SODIUM CHLORIDE 160 ML 20 MG IV (20:10)
[2024-10-15] MEDS: APIXABAN 5 MG TABLET PO (20:10)
[2024-10-15] MEDS: AMITRIPTYLINE HCL 50 MG TABLET 300 MG PO (22:29)
[2024-10-15] MEDS: DOXEPIN HCL 10 MG CAPSULE 20 MG PO (22:30)
[2024-10-15] MEDS: PRIMIDONE 50 MG TABLET 150 MG PO (22:31)
[2024-10-15] MEDS: PRAMIPEXOLE 1 MG TABLET PO (22:31)
[2024-10-15] MEDS: ALPRAZOLAM 0.5 MG TABLET PO (23:55)
[2024-10-16] VITALS (22 sets, daily range): BP systolic 95–153; BP diastolic 52–84; PULSE 64–99; TEMP 36.2–36.9; O2SAT 90–98
[2024-10-16] MEDS: OXYCODONE HCL/ACETAMINOPHEN 5MG/325MG 2 TAB PO ×3 (03:47→17:35)
[2024-10-16 05:55] LABS: Basophils Percent Auto 0.4 % (0.2-2.0); Eosinophils Absolute Auto 0.1 10^3/uL (0.0-0.7); Eosinophils Percent Auto 2.9 % (0.9-7.0); Hematocrit 29.3 % (36.0-48.0); Hemoglobin 8.9 g/dL (12.0-16.0); Immature Granulocytes Abs Auto 0.01 10^3/uL (0.00-0.03); Immature Granulocytes Pct Auto 0.2 % (0.0-0.5); Lymphocytes Absolute Auto 1.2 10^3/uL (1.2-3.8); Lymphocytes Percent Auto 26.6 % (20.5-60.0); Mean Corpuscular HGB Conc 30.4 g/dL (29.9-35.2); Mean Corpuscular Hemoglobin 30.2 pg (26.7-34.0); Mean Corpuscular Volume 99.3 fL (81.0-99.0); Mean Platelet Volume 8.8 fL (9.5-13.5); Monocytes Absolute Auto 0.5 10^3/uL (0.3-0.8); Neutrophils Absolute Auto 2.7 10^3/uL (1.4-6.5); Neutrophils Percent Auto 59.9 % (43.0-75.0); Platelet Count 185 10^3/uL (150-450); Red Blood Count 2.95 10^6/uL (4.20-5.40); Red Cell Distribution Width 13.4 % (11.0-15.0); White Blood Count 4.5 10^3/uL (4.0-11.0)
[2024-10-16] MEDS: LEVOTHYROXINE SODIUM 100 MCG TABLET PO (06:04)
[2024-10-16 06:33] LABS: Anion Gap 15.4; BUN Creatinine Ratio 32.8; Calcium 8.4 mg/dL (8.5-10.1); Carbon Dioxide 24.5 mmol/L (21.0-32.0); Chloride 103 mmol/L (98-107); Estimated GFR (African America 30 (>=60 mL/min/1.73m^2); Estimated GFR (Non-African Ame 25 (>=60 mL/min/1.73m^2); Glucose 116 mg/dL (74-106); Potassium 3.9 mmol/L (3.5-5.1); Sodium 139 mmol/L (136-145)
--- NOTE | 2024-10-16 07:41 | CM.NOTE ---
Rounds made with Dr. Godinez. Dr. Godinez reviews plan of care. Bumex gtt today. No discharge.
--- NOTE | 2024-10-16 07:43 | P.PN_ITS ---
Progress Note: Subjective Subjective Interval history: In lower extremities worse this morning. Swelling slightly improved, pain likely related to fluid shifting Exam Constitutional Vital Signs, click to edit/add: Last Vital Signs Temp 97.7 F 10/16/24 03:55 Pulse 69 10/16/24 06:04 Resp 16 10/16/24 03:55 BP 134/76 10/16/24 03:55 Pulse Ox 98 10/16/24 05:43 O2 Del Method Room Air 10/16/24 05:43 Documenting provider has reviewed patient's vital signs: yes Common normals: apparent distress (Moderate painful distress) Chest Common normals: inspection of chest normal Respiratory Common normals: normal respiratory effort and no retractions Cardio Common normals: regular rate and regular rhythm GI Common normals: negative for Normal to inspection, nondistended, normoactive bowel sounds present (Morbid obesity) Extremity Common normals: abnormal to inspection (4+ edema without evidence for cellulitis) Progress Note: Objective Labs Labs: Short CBC 10/16/24 Range/Units 05:45 WBC 4.5 (4.0-11.0) 10^3/uL Hgb 8.9 L (12.0-16.0) g/dL Hct 29.3 L (36.0-48.0) % Plt Count 185 (150-450) 10^3/uL BMP 10/16/24 05:45 Sodium 139 Potassium 3.9 Chloride 103 Carbon Dioxide 24.5 BUN 67.0 H Creatinine 2.04 H Glucose 116 H Calcium 8.4 L Progress Note: A&P Assessment and Plan (1) Peripheral edema: (2) Sinus tachycardia: (3) Lumbar radiculopathy: (4) Knee osteoarthritis: (5) Shortness of breath: (6) Fluid overload: (7) Lymphedema: (8) Dyspnea: (9) Anemia: Plan Admit findings: Uncontrolled hypertension, sinus tachycardia, normal BNP but increased weight, up 12 to 15 pounds from her baseline, also acute elevation in creatinine at 2.11, history of chronic kidney disease, patient failed outpatient treatment she doubled her doses of her diuretics that she has in the past without any significant improvement in her weight, x-ray is worse today at 4 more pounds in the previous day. Fluid overload without overt heart failure-repeat Bumex drip again today Chronic kidney disease stage III-kidney function actually improved after first round of Bumex drip Lymphedema-this is worse than her baseline lymphedema, she has been using her lymphedema pumps but no improvement in her edema Hypertension-up at times, continue to monitor Iron deficiency anemia as well as anemia of chronic kidney disease-monitor daily-Down slightly today Generalized anxiety disorder continue with home medications Insomnia-continue with home medications Lumbar radiculopathy continue with home medications-requiring IV pain medications Hypothyroidism continue with home medications Constipation continue with home medications Morbid obesity-outpatient diet management Restless leg syndrome continue with home medications Admission status: Patient with recurrent history of acute fluid overload complicated by lymphedema, this is usually at least a 2-day event most of the time it takes 3 days,-now requiring IV pain medications, medically necessary treatment will span 2 midnights. Inpatient status maintained ?
[2024-10-16] MEDS: DESVENLAFAXINE SUCCINATE 50 MG TAB.ER.24H PO (09:37)
[2024-10-16] MEDS: APIXABAN 5 MG TABLET PO ×2 (09:37→21:14)
[2024-10-16] MEDS: ESCITALOPRAM 10 MG TABLET 20 MG PO (09:37)
[2024-10-16] MEDS: SPIRONOLACTONE 25 MG TABLET 50 MG PO (09:37)
[2024-10-16] MEDS: CALCITRIOL 0.25 MCG CAPSULE 0.5 MCG PO (09:37)
[2024-10-16] MEDS: LIOTHYRONINE SODIUM 25 MCG TABLET PO (09:37)
[2024-10-16] MEDS: CALCIUM ACETATE 667 MG CAPSULE PO ×2 (09:38→17:35)
[2024-10-16] MEDS: SACUBITRIL/VALSARTAN 24 MG-26 MG TABLET 2 TAB PO ×2 (09:38→21:14)
[2024-10-16] MEDS: SEVELAMER CARBONATE 800 MG TABLET PO ×2 (09:38→17:35)
[2024-10-16] MEDS: FENTANYL 50 MCG/HR PATCH.TD72 100 MCG TD (09:38)
--- NOTE | 2024-10-16 09:48 | SWNOTE1 ---
Important Message from [employer] reviewed and discussed with patient. Pt. verbalized understanding and signed the form. Original given to patient and copy placed in patient?s chart.
--- NOTE | 2024-10-16 09:48 | SWNOTE1 ---
SW met with pt to discuss dc needs. Pt lives at home with her . Pt voiced she has not been sleeping well and she has not been feeling the greatest. She stated her legs are very swollen and painful. She voiced that she was at pain management a fwe days ago as her sciatic nerve was bothering her as well. Pt stated she has been using her lymphedema pumps regularly, but they have not been helping as much. Pt does use a rollator at home and does go down steps to get to her arts and crafts room. 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 Pt also does the grocery shopping, cooks, cleans, and babysits her grand children. Pt voiced no needs at discharge at this time. SW to follow as needed.
[2024-10-16] MEDS: BUMETANIDE 10 MG in 0.9 % SODIUM CHLORIDE 160 ML 20 MG IV (11:24)
[2024-10-16] MEDS: HYDROMORPHONE HCL 0.5 MG/0.5 ML SYRINGE IV ×2 (12:43→21:13)
[2024-10-16] MEDS: TIZANIDINE HCL 4 MG TABLET PO ×2 (15:00→21:18)
[2024-10-16] MEDS: PRIMIDONE 50 MG TABLET 150 MG PO (21:14)
[2024-10-16] MEDS: PRAMIPEXOLE 1 MG TABLET PO (21:14)
[2024-10-16] MEDS: AMITRIPTYLINE HCL 50 MG TABLET 300 MG PO (21:14)
[2024-10-16] MEDS: DOXEPIN HCL 10 MG CAPSULE 20 MG PO (21:14)
[2024-10-16] MEDS: ALPRAZOLAM 0.5 MG TABLET PO (21:14)
[2024-10-17] VITALS (20 sets, daily range): BP systolic 107–146; BP diastolic 71–87; PULSE 68–110; TEMP 36–36.9; O2SAT 92–100
[2024-10-17] MEDS: LEVOTHYROXINE SODIUM 100 MCG TABLET PO (05:48)
[2024-10-17 06:06] LABS: Basophils Percent Auto 0.3 % (0.2-2.0); Eosinophils Absolute Auto 0.1 10^3/uL (0.0-0.7); Hematocrit 29.7 % (36.0-48.0); Hemoglobin 9.1 g/dL (12.0-16.0); Immature Granulocytes Abs Auto 0.02 10^3/uL (0.00-0.03); Immature Granulocytes Pct Auto 0.3 % (0.0-0.5); Lymphocytes Absolute Auto 0.9 10^3/uL (1.2-3.8); Lymphocytes Percent Auto 15.5 % (20.5-60.0); Mean Corpuscular HGB Conc 30.6 g/dL (29.9-35.2); Mean Corpuscular Hemoglobin 30.6 pg (26.7-34.0); Monocytes Absolute Auto 0.5 10^3/uL (0.3-0.8); Monocytes Percent Auto 8.1 % (1.7-12.0); Neutrophils Absolute Auto 4.4 10^3/uL (1.4-6.5); Neutrophils Percent Auto 74.8 % (43.0-75.0); Platelet Count 190 10^3/uL (150-450); Red Blood Count 2.97 10^6/uL (4.20-5.40); Red Cell Distribution Width 13.6 % (11.0-15.0); White Blood Count 5.9 10^3/uL (4.0-11.0)
[2024-10-17 06:28] LABS: Anion Gap 11.4; BUN Creatinine Ratio 35.6; Calcium 8.2 mg/dL (8.5-10.1); Carbon Dioxide 29.4 mmol/L (21.0-32.0); Chloride 104 mmol/L (98-107); Estimated GFR (African America 35 (>=60 mL/min/1.73m^2); Estimated GFR (Non-African Ame 29 (>=60 mL/min/1.73m^2); Glucose 105 mg/dL (74-106); Potassium 3.8 mmol/L (3.5-5.1); Sodium 141 mmol/L (136-145)
--- NOTE | 2024-10-17 07:58 | P.PN_ITS ---
Progress Note: Subjective Subjective Interval history: Still with significant swelling in her legs but is slightly improved from previous day, still painful with ambulation secondary to fluid Exam Constitutional Vital Signs, click to edit/add: Last Vital Signs Temp 97.8 F 10/17/24 03:59 Pulse 74 10/17/24 07:58 Resp 18 10/17/24 03:59 BP 146/87 H 10/17/24 03:59 Pulse Ox 99 10/17/24 04:00 O2 Del Method Room Air 10/17/24 03:59 Documenting provider has reviewed patient's vital signs: yes Common normals: apparent distress (Moderate painful distress) Chest Common normals: inspection of chest normal Respiratory Common normals: normal respiratory effort and no retractions Cardio Common normals: regular rate and regular rhythm GI Common normals: negative for Normal to inspection, nondistended, normoactive bowel sounds present (Morbid obesity) Extremity Common normals: abnormal to inspection (3-4+ edema without evidence for cellulitis -minimal improvement) Progress Note: Objective Labs Labs: Short CBC 10/17/24 Range/Units 05:54 WBC 5.9 (4.0-11.0) 10^3/uL Hgb 9.1 L (12.0-16.0) g/dL Hct 29.7 L (36.0-48.0) % Plt Count 190 (150-450) 10^3/uL BMP 10/17/24 05:54 Sodium 141 Potassium 3.8 Chloride 104 Carbon Dioxide 29.4 BUN 64.0 H Creatinine 1.80 H Glucose 105 Calcium 8.2 L Progress Note: A&P Assessment and Plan (1) Peripheral edema: (2) Sinus tachycardia: (3) Lumbar radiculopathy: (4) Knee osteoarthritis: (5) Shortness of breath: (6) Fluid overload: (7) Lymphedema: (8) Dyspnea: (9) Anemia: Plan Admit findings: Uncontrolled hypertension, sinus tachycardia, normal BNP but increased weight, up 12 to 15 pounds from her baseline, also acute elevation in creatinine at 2.11, history of chronic kidney disease, patient failed outpatient treatment she doubled her doses of her diuretics that she has in the past without any significant improvement in her weight, x-ray is worse today at 4 more pounds in the previous day. Fluid overload without overt heart failure-did onofreurese a net of 4.8 L so far, but still has significant fluid overload in her lower extremities she normally is 2+ edema, she still 3-4+ edema, maintain her lymphedema pumps today, repeat Bumex drip but over 20 hours, creatinine continues to improve despite use of Bumex Chronic kidney disease stage III-kidney function actually improved after after first 2 rounds of Bumex drip Lymphedema-with slight improvement she is able to apply her lymphedema pumps now, maintain that today Hypertension-up at times, continue to monitor Iron deficiency anemia as well as anemia of chronic kidney disease-monitor daily-improved today Generalized anxiety disorder continue with home medications Insomnia-continue with home medications Lumbar radiculopathy continue with home medications-requiring IV pain medications Hypothyroidism continue with home medications Constipation continue with home medications Morbid obesity-outpatient diet management Restless leg syndrome continue with home medications Admission status: Patient with recurrent history of acute fluid overload complicated by lymphedema, this is usually at least a 2-day event most of the time it takes 3 days,-now requiring IV pain medications, medically necessary treatment will span 2 midnights. Inpatient status maintained ?
--- NOTE | 2024-10-17 08:00 | CM.NOTE ---
Rounds made with Dr. Godinez, no discharge today. Pt continues with lower extremity edema. Bumex drip again today. Dr. Godinez discussed with pt plan of care and am lab work.
[2024-10-17] MEDS: SEVELAMER CARBONATE 800 MG TABLET PO ×2 (08:32→16:04)
[2024-10-17] MEDS: ESCITALOPRAM 10 MG TABLET 20 MG PO (08:32)
[2024-10-17] MEDS: DESVENLAFAXINE SUCCINATE 50 MG TAB.ER.24H PO (08:32)
[2024-10-17] MEDS: APIXABAN 5 MG TABLET PO ×2 (08:32→21:04)
[2024-10-17] MEDS: CALCIUM ACETATE 667 MG CAPSULE PO ×2 (08:32→16:04)
[2024-10-17] MEDS: CALCITRIOL 0.25 MCG CAPSULE 0.5 MCG PO (08:32)
[2024-10-17] MEDS: SPIRONOLACTONE 25 MG TABLET 50 MG PO (08:32)
[2024-10-17] MEDS: LIOTHYRONINE SODIUM 25 MCG TABLET PO (08:32)
[2024-10-17] MEDS: SACUBITRIL/VALSARTAN 24 MG-26 MG TABLET 2 TAB PO ×2 (08:33→21:04)
[2024-10-17] MEDS: OXYCODONE HCL/ACETAMINOPHEN 5MG/325MG 2 TAB PO ×2 (08:33→16:04)
[2024-10-17] MEDS: AZELASTINE 0.05% OP (08:34)
[2024-10-17] MEDS: BUMETANIDE 10 MG in 0.9 % SODIUM CHLORIDE 160 ML IV (08:50)
[2024-10-17] MEDS: HYDROMORPHONE HCL 0.5 MG/0.5 ML SYRINGE IV ×2 (10:46→18:24)
[2024-10-17] MEDS: ONDANSETRON PF 4 MG/2 ML VIAL IV (10:46)
[2024-10-17] MEDS: TIZANIDINE HCL 4 MG TABLET PO (21:04)
[2024-10-17] MEDS: DOXEPIN HCL 10 MG CAPSULE 20 MG PO (21:04)
[2024-10-17] MEDS: ALPRAZOLAM 0.5 MG TABLET PO (21:04)
[2024-10-17] MEDS: PRAMIPEXOLE 1 MG TABLET PO (21:04)
[2024-10-17] MEDS: PRIMIDONE 50 MG TABLET 150 MG PO (21:04)
[2024-10-17] MEDS: AMITRIPTYLINE HCL 50 MG TABLET 300 MG PO (21:05)
[2024-10-18] VITALS (11 sets, daily range): BP systolic 108–133; BP diastolic 67–79; PULSE 66–95; TEMP 36.4–36.6; O2SAT 90–98
[2024-10-18] MEDS: OXYCODONE HCL/ACETAMINOPHEN 5MG/325MG 2 TAB PO ×2 (02:27→08:20)
[2024-10-18] MEDS: LEVOTHYROXINE SODIUM 100 MCG TABLET PO (05:44)
[2024-10-18 06:23] LABS: Basophils Percent Auto 0.2 % (0.2-2.0); Eosinophils Absolute Auto 0.2 10^3/uL (0.0-0.7); Eosinophils Percent Auto 2.7 % (0.9-7.0); Hematocrit 28.9 % (36.0-48.0); Hemoglobin 8.7 g/dL (12.0-16.0); Immature Granulocytes Abs Auto 0.04 10^3/uL (0.00-0.03); Immature Granulocytes Pct Auto 0.7 % (0.0-0.5); Lymphocytes Absolute Auto 1.5 10^3/uL (1.2-3.8); Lymphocytes Percent Auto 24.6 % (20.5-60.0); Mean Corpuscular HGB Conc 30.1 g/dL (29.9-35.2); Mean Corpuscular Hemoglobin 30.5 pg (26.7-34.0); Mean Corpuscular Volume 101.4 fL (81.0-99.0); Mean Platelet Volume 9.2 fL (9.5-13.5); Monocytes Absolute Auto 0.6 10^3/uL (0.3-0.8); Monocytes Percent Auto 10.3 % (1.7-12.0); Neutrophils Absolute Auto 3.7 10^3/uL (1.4-6.5); Neutrophils Percent Auto 61.5 % (43.0-75.0); Platelet Count 195 10^3/uL (150-450); Red Blood Count 2.85 10^6/uL (4.20-5.40); Red Cell Distribution Width 13.7 % (11.0-15.0); White Blood Count 5.9 10^3/uL (4.0-11.0)
[2024-10-18 06:39] LABS: Anion Gap 11.3; BUN Creatinine Ratio 30.6; Carbon Dioxide 28.6 mmol/L (21.0-32.0); Chloride 103 mmol/L (98-107); Estimated GFR (African America 30 (>=60 mL/min/1.73m^2); Estimated GFR (Non-African Ame 24 (>=60 mL/min/1.73m^2); Glucose 80 mg/dL (74-106); Potassium 3.9 mmol/L (3.5-5.1); Sodium 139 mmol/L (136-145)
[2024-10-18] MEDS: TIZANIDINE HCL 4 MG TABLET PO (06:40)
--- NOTE | 2024-10-18 07:05 | P.DS_ITS ---
DS: Providers Provider Date of admission: 10/15/24 18:25 Primary care physician: Yuri Godinez MD DS: Diagnosis Discharge Diagnosis (1) Peripheral edema: (2) Sinus tachycardia: (3) Lumbar radiculopathy: (4) Knee osteoarthritis: (5) Shortness of breath: (6) Fluid overload: (7) Lymphedema: (8) Dyspnea: (9) Anemia: Plan Admit findings: Uncontrolled hypertension, sinus tachycardia, normal BNP but increased weight, up 12 to 15 pounds from her baseline, also acute elevation in creatinine at 2.11, history of chronic kidney disease, patient failed outpatient treatment she doubled her doses of her diuretics that she has in the past without any significant improvement in her weight, x-ray is worse today at 4 more pounds in the previous day. Fluid overload without overt heart failure-did diurese a net of 4.8 L so far, but still has significant fluid overload in her lower extremities she normally is 2+ edema, she still 3-4+ edema, maintain her lymphedema pumps today, repeat Bumex drip but over 20 hours, creatinine continues to improve despite use of Bumex Chronic kidney disease stage III-kidney function actually improved after after first 2 rounds of Bumex drip Lymphedema-with slight improvement she is able to apply her lymphedema pumps n ow, maintain that today Hypertension-up at times, continue to monitor Iron deficiency anemia as well as anemia of chronic kidney disease-monitor daily-improved today Generalized anxiety disorder continue with home medications Insomnia-continue with home medications Lumbar radiculopathy continue with home medications-requiring IV pain medications Hypothyroidism continue with home medications Constipation continue with home medications Morbid obesity-outpatient diet management Restless leg syndrome continue with home medications Admission status: Patient with recurrent history of acute fluid overload complicated by lymphedema, this is usually at least a 2-day event most of the time it takes 3 days,-now requiring IV pain medications, medically necessary treatment will span 2 midnights. Inpatient status maintained ? DS: Summary Hospital Course Hospital Course: Patient seen as an outpatient and treated more aggressively for her fluid overload, she had a 10 pound weight gain, we doubled her doses of diuretics, with no improvement in weight continue to elevate she was admitted for IV Bumex. Patient has significant fluid overload she diuresed almost 10 L throughout the hospitalization. Kidney function status into the same as it was on admission, at this point she can ambulate more safely, leg swelling much improved, she will be discharged to home in improving condition. Medications to this. Follow-up with me in the office next week. Time Spent with Patient Time attestation: Total time spent providing and/or coordinating discharge services: Exam Constitutional Vital Signs, click to edit/add: Last Vital Signs Temp 97.9 F 10/18/24 04:00 Pulse 66 10/18/24 06:00 Resp 16 10/18/24 04:00 BP 110/67 10/18/24 04:00 Pulse Ox 90 L 10/18/24 04:00 O2 Del Method Room Air 10/18/24 04:00 Documenting provider has reviewed patient's vital signs: yes Common normals: apparent distress (Moderate painful distress) Chest Common normals: inspection of chest normal Respiratory Common normals: normal respiratory effort and no retractions Cardio Common normals: regular rate and regular rhythm GI Common normals: negative for Normal to inspection, nondistended, normoactive bowel sounds present (Morbid obesity) Extremity Common normals: abnormal to inspection (2-3+ edema which is her baseline ) DS: Data Data Completed and Pending Labs on day of discharge: Labs from last 24 hours 10/18/24 05:48 WBC 5.9 RBC 2.85 L Hgb 8.7 L Hct 28.9 L MCV 101.4 H MCH 30.5 MCHC 30.1 RDW 13.7 Plt Count 195 MPV 9.2 L Neut % (Auto) 61.5 Lymph % (Auto) 24.6 Waldo % (Auto) 10.3 Eos % (Auto) 2.7 Baso % (Auto) 0.2 Neut # (Auto) 3.7 Lymph # (Auto) 1.5 Waldo # (Auto) 0.6 Eos # (Auto) 0.2 Baso # (Auto) 0.0 Abs Immat Gran (auto) 0.04 H Imm/Tot Granulo (auto) 0.7 H Sodium 139 Potassium 3.9 Chloride 103 Carbon Dioxide 28.6 Anion Gap 11.3 BUN 63.0 H Creatinine 2.06 H Est GFR ( Amer) 30 L Est GFR (Non-Af Amer) 24 L BUN/Creatinine Ratio 30.6 Glucose 80 Calcium 8.0 L Discharge Plan Discharge Disposition: Home, Self-Care Condition: Fair Discharge Medications: Continued desvenlafaxine succinate 50 mg tablet extended release 24 hr 50 mg PO DAILY doxepin 10 mg capsule 20 mg PO BEDTIME escitalopram oxalate 20 mg tablet 20 mg PO DAILY azelastine 0.05 % drops 1 drp OPHTHALMIC (EYE) DAILY fentanyl 100 mcg/hr patch 72 hour 1 patch transdermal Q72H pramipexole 1 mg tablet 1 mg PO .QHS sevelamer carbonate 800 mg tablet 800 mg PO BID Eliquis 5 mg tablet 5 mg PO BID torsemide 100 mg tablet 100 mg PO DAILY calcitriol 0.5 mcg capsule 0.5 mcg PO DAILY alprazolam 0.5 mg tablet 0.5 mg PO BID PRN (Reason: anxiety) amitriptyline 150 mg tablet 300 mg PO BEDTIME calcium acetate(phosphat bind) 667 mg capsule 667 mg PO BIDWM levothyroxine 100 mcg tablet 100 mcg PO DAILY Linzess 290 mcg capsule 290 mcg PO DAILY primidone 50 mg tablet 150 mg PO BEDTIME tizanidine [Zanaflex] 4 mg tablet 4 mg PO Q6H PRN (Reason: muscle spasticity) oxycodone-acetaminophen 5-325 mg tablet 2 tab PO Q6H PRN (Reason: pain) Entresto 49-51 mg tablet 1 tab PO BID bumetanide 2 mg tablet 2 mg PO BID xdgeavxgnh-vcpspdrwwzxvv-nygn 50-325-40 mg tablet 1 tab PO BID PRN (Reason: migraine headache) liothyronine 25 mcg tablet 25 mcg PO DAILY Print Language: Kazakh Forms: Portal Instructions
[2024-10-18] MEDS: SACUBITRIL/VALSARTAN 24 MG-26 MG TABLET 2 TAB PO (08:19)
[2024-10-18] MEDS: CALCIUM ACETATE 667 MG CAPSULE PO (08:19)
[2024-10-18] MEDS: CALCITRIOL 0.25 MCG CAPSULE 0.5 MCG PO (08:19)
[2024-10-18] MEDS: SEVELAMER CARBONATE 800 MG TABLET PO (08:19)
[2024-10-18] MEDS: ESCITALOPRAM 10 MG TABLET 20 MG PO (08:19)
[2024-10-18] MEDS: SPIRONOLACTONE 25 MG TABLET 50 MG PO (08:19)
[2024-10-18] MEDS: DESVENLAFAXINE SUCCINATE 50 MG TAB.ER.24H PO (08:19)
[2024-10-18] MEDS: LIOTHYRONINE SODIUM 25 MCG TABLET PO (08:19)
[2024-10-18] MEDS: BUMETANIDE 1 MG/4 ML VIAL 2 MG IVP (08:19)
[2024-10-18] MEDS: APIXABAN 5 MG TABLET PO (08:20)
--- NOTE | 2024-10-18 08:37 | CM.NOTE ---
Rounds made with Dr. Godinez. Dr Godinez discussed Labs and treatment progress with Mabel. Mabel states feeling better. Plan is for discharge home today.
--- NOTE | 2024-10-18 13:29 | NUTR.NU ---
Pt was admitted 10/15/24 following fall w/spinal fx injuries, tachycardia, fluid overload. PO intakes of regular diet are consistently good and appear to meet pt?s estimated nutrient requirements. Will continue to follow PRN.
--- NOTE | 2024-10-21 12:36 | CM.DCFOLLOWU ---
Person spoke with:patient How are you feeling?well, back is hurting some, but overall well How is your pain? just some back pain, tolerable Did you understand your discharge instructions?yes Do you have any questions about your discharge instructions?no Were you given any prescriptions at discharge?no Were you able to get your prescriptions filled?N/A N/A Do you understand how to take your medications as ordered?yes Do you have any questions about your follow up appointment and do you plan to keep your follow up appointment?no questions, was told to call Dr. Godinez if any issues come up Is there anything else that you would like to discuss?no Questions/Comments/Concerns/Other:none
== END 2024-10-18 13:06 | disposition home or self-care (01) | DRG 641 ==
LOC: ER 17:29 → MS 18:28
PROVIDERS: Admitting Provider Family Medicine; Emergency Provider Emergency Medicine; PCP Family Medicine; Visit Provider Family Medicine
DX: E87.70 Fluid overload, unspecified (principal); I50.32 Chronic diastolic (congestive) heart failure; I13.0 Hypertensive heart and chronic kidney disease with heart failure and stage 1 through stage 4 chronic kidney disease, or unspecified chronic kidney disease; E87.1 Hypo-osmolality and hyponatremia; D63.1 Anemia in chronic kidney disease; D50.9 Iron deficiency anemia, unspecified; Z87.440 Personal history of urinary (tract) infections; Z86.718 Personal history of other venous thrombosis and embolism; Z86.711 Personal history of pulmonary embolism; R56.9 Unspecified convulsions; M81.0 Age-related osteoporosis without current pathological fracture; F32.A Depression, unspecified; K21.9 Gastro-esophageal reflux disease without esophagitis; E03.9 Hypothyroidism, unspecified; J44.9 Chronic obstructive pulmonary disease, unspecified; Z86.73 Personal history of transient ischemic attack (TIA), and cerebral infarction without residual deficits; Z90.710 Acquired absence of both cervix and uterus; Z98.1 Arthrodesis status; Z96.651 Presence of right artificial knee joint; Z90.49 Acquired absence of other specified parts of digestive tract; F17.290 Nicotine dependence, other tobacco product, uncomplicated; I25.2 Old myocardial infarction; Z79.899 Other long term (current) drug therapy; M47.26 Other spondylosis with radiculopathy, lumbar region; R00.0 Tachycardia, unspecified; R06.02 Shortness of breath; R06.00 Dyspnea, unspecified; I89.0 Lymphedema, not elsewhere classified; M17.9 Osteoarthritis of knee, unspecified; N18.30 Chronic kidney disease, stage 3 unspecified; F41.1 Generalized anxiety disorder; G47.00 Insomnia, unspecified; G25.81 Restless legs syndrome; K59.00 Constipation, unspecified; E66.01 Morbid (severe) obesity due to excess calories; Z79.890 Hormone replacement therapy; Z79.01 Long term (current) use of anticoagulants; Z68.38 Body mass index [BMI] 38.0-38.9, adult
CPT/HCPCS: 36415; 36591; 36592; 71045; 80048; 80053; 83880; 83930; 85025; 93005; 94761; 96372; 99285; G0463; J1171; J1642; J2405; Q5106

== ENCOUNTER 2024-10-22 07:37 | Outpatient (RCR) | payer MEDICARE, MEDICAID, SELFPAY ==
[2024-09-27 11:23] LABS: Basophils Percent Auto 0.5 % (0.2-2.0); Eosinophils Absolute Auto 0.2 10^3/uL (0.0-0.7); Eosinophils Percent Auto 2.3 % (0.9-7.0); Hematocrit 29.8 % (36.0-48.0); Hemoglobin 9.4 g/dL (12.0-16.0); Immature Granulocytes Abs Auto 0.04 10^3/uL (0.00-0.03); Immature Granulocytes Pct Auto 0.6 % (0.0-0.5); Lymphocytes Percent Auto 14.3 % (20.5-60.0); Mean Corpuscular HGB Conc 31.5 g/dL (29.9-35.2); Mean Corpuscular Hemoglobin 30.4 pg (26.7-34.0); Mean Corpuscular Volume 96.4 fL (81.0-99.0); Mean Platelet Volume 8.6 fL (9.5-13.5); Monocytes Absolute Auto 0.6 10^3/uL (0.3-0.8); Monocytes Percent Auto 9.3 % (1.7-12.0); Neutrophils Absolute Auto 4.9 10^3/uL (1.4-6.5); Platelet Count 282 10^3/uL (150-450); Red Blood Count 3.09 10^6/uL (4.20-5.40); Red Cell Distribution Width 13.1 % (11.0-15.0); White Blood Count 6.7 10^3/uL (4.0-11.0)
[2024-09-27] MEDS: HEPARIN SODIUM (PORCINE) PF LOCK FLUSH 500 UNIT/5 ML SYRINGE IV (11:30)
[2024-09-27 13:28] LABS: Alanine Aminotransferase 17 U/L (14-59); Albumin Globulin Ratio 0.8; Alkaline Phosphatase 253 U/L (46-116); Anion Gap 12.4; Aspartate Amino Transferase 19 U/L (15-37); BUN Creatinine Ratio 27.4; Bilirubin Total 0.2 mg/dL (0.2-1.0); Calcium 8.2 mg/dL (8.5-10.1); Carbon Dioxide 24.9 mmol/L (21.0-32.0); Chloride 98 mmol/L (98-107); Estimated GFR (African America 29 (>=60 mL/min/1.73m^2); Estimated GFR (Non-African Ame 24 (>=60 mL/min/1.73m^2); Globulin 3.7 g/dL; Glucose 89 mg/dL (74-106); Potassium 4.3 mmol/L (3.5-5.1); Sodium 131 mmol/L (136-145); Total Protein 6.7 g/dL (6.4-8.2)
[2024-10-07] MEDS: HEPARIN SODIUM (PORCINE) PF LOCK FLUSH 500 UNIT/5 ML SYRINGE IV (10:10)
[2024-10-07 10:13] LABS: Basophils Percent Auto 0.1 % (0.2-2.0); Eosinophils Absolute Auto 0.2 10^3/uL (0.0-0.7); Hematocrit 32.2 % (36.0-48.0); Hemoglobin 10.1 g/dL (12.0-16.0); Immature Granulocytes Abs Auto 0.03 10^3/uL (0.00-0.03); Immature Granulocytes Pct Auto 0.4 % (0.0-0.5); Lymphocytes Percent Auto 12.6 % (20.5-60.0); Mean Corpuscular HGB Conc 31.4 g/dL (29.9-35.2); Mean Corpuscular Hemoglobin 30.2 pg (26.7-34.0); Mean Corpuscular Volume 96.4 fL (81.0-99.0); Mean Platelet Volume 8.9 fL (9.5-13.5); Monocytes Absolute Auto 0.5 10^3/uL (0.3-0.8); Neutrophils Percent Auto 77.9 % (43.0-75.0); Platelet Count 279 10^3/uL (150-450); Red Blood Count 3.34 10^6/uL (4.20-5.40); Red Cell Distribution Width 13.3 % (11.0-15.0); White Blood Count 7.7 10^3/uL (4.0-11.0)
[2024-10-07 10:28] LABS: Alanine Aminotransferase 15 U/L (14-59); Albumin Globulin Ratio 0.9; Albumin Level 3.4 g/dL (3.4-5.0); Alkaline Phosphatase 277 U/L (46-116); Aspartate Amino Transferase 26 U/L (15-37); BUN Creatinine Ratio 37.4; Bilirubin Total 0.2 mg/dL (0.2-1.0); Calcium 8.5 mg/dL (8.5-10.1); Carbon Dioxide 25.3 mmol/L (21.0-32.0); Chloride 100 mmol/L (98-107); Estimated GFR (African America 39 (>=60 mL/min/1.73m^2); Estimated GFR (Non-African Ame 32 (>=60 mL/min/1.73m^2); Globulin 3.6 g/dL; Glucose 93 mg/dL (74-106); Potassium 4.3 mmol/L (3.5-5.1); Sodium 133 mmol/L (136-145)
[2024-10-15 10:04] LABS: Basophils Percent Auto 0.6 % (0.2-2.0); Eosinophils Absolute Auto 0.2 10^3/uL (0.0-0.7); Hematocrit 31.9 % (36.0-48.0); Hemoglobin 9.8 g/dL (12.0-16.0); Immature Granulocytes Abs Auto 0.01 10^3/uL (0.00-0.03); Immature Granulocytes Pct Auto 0.2 % (0.0-0.5); Lymphocytes Absolute Auto 1.3 10^3/uL (1.2-3.8); Mean Corpuscular HGB Conc 30.7 g/dL (29.9-35.2); Mean Corpuscular Hemoglobin 30.2 pg (26.7-34.0); Mean Corpuscular Volume 98.5 fL (81.0-99.0); Mean Platelet Volume 8.9 fL (9.5-13.5); Monocytes Absolute Auto 0.4 10^3/uL (0.3-0.8); Monocytes Percent Auto 8.1 % (1.7-12.0); Neutrophils Absolute Auto 3.4 10^3/uL (1.4-6.5); Neutrophils Percent Auto 64.1 % (43.0-75.0); Platelet Count 235 10^3/uL (150-450); Red Blood Count 3.24 10^6/uL (4.20-5.40); Red Cell Distribution Width 13.4 % (11.0-15.0); White Blood Count 5.3 10^3/uL (4.0-11.0)
[2024-10-15 10:17] LABS: Alanine Aminotransferase 22 U/L (14-59); Albumin Globulin Ratio 0.9; Albumin Level 3.3 g/dL (3.4-5.0); Alkaline Phosphatase 272 U/L (46-116); Anion Gap 13.2; Aspartate Amino Transferase 24 U/L (15-37); BUN Creatinine Ratio 31.8; Bilirubin Total 0.2 mg/dL (0.2-1.0); Calcium 8.3 mg/dL (8.5-10.1); Carbon Dioxide 27.1 mmol/L (21.0-32.0); Chloride 99 mmol/L (98-107); Estimated GFR (African America 29 (>=60 mL/min/1.73m^2); Estimated GFR (Non-African Ame 24 (>=60 mL/min/1.73m^2); Globulin 3.6 g/dL; Glucose 100 mg/dL (74-106); Potassium 4.3 mmol/L (3.5-5.1); Sodium 135 mmol/L (136-145); Total Protein 6.9 g/dL (6.4-8.2)
[2024-10-22] MEDS: HEPARIN SODIUM (PORCINE) PF LOCK FLUSH 500 UNIT/5 ML SYRINGE IV (13:13)
[2024-10-22 13:44] LABS: Basophils Percent Auto 0.3 % (0.2-2.0); Eosinophils Absolute Auto 0.1 10^3/uL (0.0-0.7); Eosinophils Percent Auto 1.7 % (0.9-7.0); Hematocrit 34.2 % (36.0-48.0); Hemoglobin 10.8 g/dL (12.0-16.0); Immature Granulocytes Abs Auto 0.02 10^3/uL (0.00-0.03); Immature Granulocytes Pct Auto 0.3 % (0.0-0.5); Lymphocytes Absolute Auto 1.3 10^3/uL (1.2-3.8); Lymphocytes Percent Auto 19.3 % (20.5-60.0); Mean Corpuscular HGB Conc 31.6 g/dL (29.9-35.2); Mean Corpuscular Hemoglobin 30.8 pg (26.7-34.0); Mean Corpuscular Volume 97.4 fL (81.0-99.0); Monocytes Absolute Auto 0.5 10^3/uL (0.3-0.8); Monocytes Percent Auto 6.9 % (1.7-12.0); Neutrophils Absolute Auto 4.7 10^3/uL (1.4-6.5); Neutrophils Percent Auto 71.5 % (43.0-75.0); Platelet Count 273 10^3/uL (150-450); Red Blood Count 3.51 10^6/uL (4.20-5.40); Red Cell Distribution Width 14.2 % (11.0-15.0); White Blood Count 6.5 10^3/uL (4.0-11.0)
[2024-10-22 14:00] LABS: Alanine Aminotransferase 17 U/L (14-59); Albumin Level 3.6 g/dL (3.4-5.0); Alkaline Phosphatase 277 U/L (46-116); Aspartate Amino Transferase 23 U/L (15-37); BUN Creatinine Ratio 34.4; Bilirubin Total 0.2 mg/dL (0.2-1.0); Calcium 8.3 mg/dL (8.5-10.1); Carbon Dioxide 28.6 mmol/L (21.0-32.0); Chloride 96 mmol/L (98-107); Estimated GFR (African America 34 (>=60 mL/min/1.73m^2); Estimated GFR (Non-African Ame 28 (>=60 mL/min/1.73m^2); Globulin 3.7 g/dL; Glucose 86 mg/dL (74-106); Potassium 4.6 mmol/L (3.5-5.1); Sodium 133 mmol/L (136-145); Total Protein 7.3 g/dL (6.4-8.2)
== END 2024-10-23 23:59 | disposition home or self-care (01) ==
LOC: INF 07:37
PROVIDERS: PCP Family Medicine; Visit Provider Family Medicine
DX: E87.70 Fluid overload, unspecified (principal); I10 Essential (primary) hypertension; E87.1 Hypo-osmolality and hyponatremia; D63.1 Anemia in chronic kidney disease; D50.9 Iron deficiency anemia, unspecified; K90.9 Intestinal malabsorption, unspecified; N18.32 Chronic kidney disease, stage 3b
CPT/HCPCS: 36415; 36591; 80053; 82728; 83540; 83550; 83930; 85025; J1642

== ENCOUNTER 2024-11-12 07:49 | Outpatient (RCR) | payer MEDICARE, MEDICAID, SELFPAY ==
[2024-11-12] MEDS: HEPARIN SODIUM (PORCINE) PF LOCK FLUSH 500 UNIT/5 ML SYRINGE IV (11:28)
--- NOTE | 2024-11-12 11:29 | PC.NURSE ---
Labs drawn from right chest port per protocol. Patient tolerated well.
[2024-11-12 11:37] LABS: Basophils Percent Auto 0.6 % (0.2-2.0); Eosinophils Absolute Auto 0.1 10^3/uL (0.0-0.7); Eosinophils Percent Auto 2.7 % (0.9-7.0); Hematocrit 31.8 % (36.0-48.0); Hemoglobin 10.3 g/dL (12.0-16.0); Immature Granulocytes Abs Auto 0.02 10^3/uL (0.00-0.03); Immature Granulocytes Pct Auto 0.4 % (0.0-0.5); Lymphocytes Absolute Auto 1.3 10^3/uL (1.2-3.8); Lymphocytes Percent Auto 24.2 % (20.5-60.0); Mean Corpuscular HGB Conc 32.4 g/dL (29.9-35.2); Mean Corpuscular Hemoglobin 30.9 pg (26.7-34.0); Mean Corpuscular Volume 95.5 fL (81.0-99.0); Mean Platelet Volume 9.2 fL (9.5-13.5); Monocytes Absolute Auto 0.5 10^3/uL (0.3-0.8); Monocytes Percent Auto 8.6 % (1.7-12.0); Neutrophils Absolute Auto 3.3 10^3/uL (1.4-6.5); Neutrophils Percent Auto 63.5 % (43.0-75.0); Platelet Count 253 10^3/uL (150-450); Red Blood Count 3.33 10^6/uL (4.20-5.40); Red Cell Distribution Width 13.4 % (11.0-15.0); White Blood Count 5.2 10^3/uL (4.0-11.0)
[2024-11-12 11:52] LABS: Alanine Aminotransferase 27 U/L (14-59); Albumin Globulin Ratio 0.9; Albumin Level 3.4 g/dL (3.4-5.0); Alkaline Phosphatase 270 U/L (46-116); Anion Gap 15.9; Aspartate Amino Transferase 47 U/L (15-37); BUN Creatinine Ratio 39.8; Bilirubin Total 0.2 mg/dL (0.2-1.0); Calcium 8.7 mg/dL (8.5-10.1); Carbon Dioxide 25.5 mmol/L (21.0-32.0); Chloride 98 mmol/L (98-107); Estimated GFR (African America 23 (>=60 mL/min/1.73m^2); Estimated GFR (Non-African Ame 19 (>=60 mL/min/1.73m^2); Globulin 3.9 g/dL; Glucose 102 mg/dL (74-106); Potassium 3.4 mmol/L (3.5-5.1); Sodium 136 mmol/L (136-145); Total Protein 7.3 g/dL (6.4-8.2)
--- NOTE | 2024-11-12 12:03 | PC.NURSE ---
1200: Dr. Godinez notified of critical lab results. No orders received.
== END 2024-11-23 23:59 | disposition home or self-care (01) ==
LOC: INF 07:49
PROVIDERS: PCP Family Medicine; Visit Provider Family Medicine
DX: E87.70 Fluid overload, unspecified (principal); I10 Essential (primary) hypertension; E87.1 Hypo-osmolality and hyponatremia
CPT/HCPCS: 36415; 36591; 80053; 83930; 85025; J1642

== ENCOUNTER 2024-11-27 11:11 | Outpatient (OUT) | payer MEDICARE, MEDICAID, SELFPAY ==
--- NOTE | 2024-11-27 11:34 | PM.CN ---
Consult Note: HPI Data of Consult Patient: known to practice within the last 3 years Requesting Physician: Louann Jackson NP Primary Care Provider: Yuri Godinez MD Consult Narrative Reason for consult: f/u Narrative: Mabel Moser a pleasant 64 year old female presents for evaluation of chronic low back and SIJ pain. Pt currently on percocet, fentanyl, voltaren gel through PCP. cannot take NSAIDs due to CKD. engages in HEP >6 weeks without improvement. underwent right SIJ injection on 10/07 with >50% improvement ongoing. Since last visit she has noticed increased low back, bilateral buttock, and BLE pain with standing, walking, stairs, activity, ADLs, and sleep. Pain today 7/10 increasing to 10/10. denies falls/injury since last visit. cc:: CC: Louann Jackson NP Review of Systems ROS Status of ROS 10 or more systems reviewed and unremarkable except as noted in history and below [facility] Medical History Hyperglycemia ?R73.9 - Hyperglycemia, unspecified (ICD-10) Recurrent UTI ?N39.0 - Urinary tract infection, site not specified (ICD-10) Atelectasis of both lungs ?J98.11 - Atelectasis (ICD-10) C2 cervical fracture ?S12.100A - Unspecified displaced fracture of second cervical vertebra, initial encounter for closed fracture (ICD-10) Shoulder pain, left ?M25.512 - Pain in left shoulder (ICD-10) Pulmonary embolism ?I26.99 - Other pulmonary embolism without acute cor pulmonale (ICD-10) DVT (deep venous thrombosis) ?I82.409 - Acute embolism and thrombosis of unspecified deep veins of unspecified lower extremity (ICD-10) Osteoporosis ?M81.0 - Age-related osteoporosis without current pathological fracture (ICD-10) Seizures ?R56.9 - Unspecified convulsions (ICD-10) IBS (irritable bowel syndrome) ?K58.9 - Irritable bowel syndrome without diarrhea (ICD-10) D-dimer, elevated ?R79.89 - Other specified abnormal findings of blood chemistry (ICD-10) Chronic kidney insufficiency ?N18.9 - Chronic kidney disease, unspecified (ICD-10) Fluid overload ?E87.70 - Fluid overload, unspecified (ICD-10) Lymphedema ?I89.0 - Lymphedema, not elsewhere classified (ICD-10) Volume overload ?E87.70 - Fluid overload, unspecified (ICD-10) Anemia of chronic disease ?D63.8 - Anemia in other chronic diseases classified elsewhere (ICD-10) Chronic kidney disease ?N18.9 - Chronic kidney disease, unspecified (ICD-10) Acute kidney injury ?N17.9 - Acute kidney failure, unspecified (ICD-10) Edema of lower leg due to peripheral venous insufficiency ?I87.2 - Venous insufficiency (chronic) (peripheral) (ICD-10) ?R60.0 - Localized edema (ICD-10) Depression ?F32.A - Depression, unspecified (ICD-10) Gastroenteritis ?K52.9 - Noninfective gastroenteritis and colitis, unspecified (ICD-10) Migraine without aura and without status migrainosus, not intractable ?G43.009 - Migraine without aura, not intractable, without status migrainosus (ICD-10) Chronic heart failure with preserved ejection fraction (HFpEF) ?I50.32 - Chronic diastolic (congestive) heart failure (ICD-10) Chest pain ?R07.9 - Chest pain, unspecified (ICD-10) Dyspnea ?R06.00 - Dyspnea, unspecified (ICD-10) Osteoarthritis ?M19.90 - Unspecified osteoarthritis, unspecified site (ICD-10) Anemia ?D64.9 - Anemia, unspecified (ICD-10) Anxiety ?F41.9 - Anxiety disorder, unspecified (ICD-10) Stroke ?I63.9 - Cerebral infarction, unspecified (ICD-10) Acid reflux ?K21.9 - Gastro-esophageal reflux disease without esophagitis (ICD-10) Hypothyroid ?E03.9 - Hypothyroidism, unspecified (ICD-10) COPD (chronic obstructive pulmonary disease) ?J44.9 - Chronic obstructive pulmonary disease, unspecified (ICD-10) Asthma ?J45.909 - Unspecified asthma, uncomplicated (ICD-10) CHF (congestive heart failure) ?I50.9 - Heart failure, unspecified (ICD-10) Irregular heart beat ?I49.9 - Cardiac arrhythmia, unspecified (ICD-10) HTN (hypertension) ?I10 - Essential (primary) hypertension (ICD-10) Heart attack ?I21.9 - Acute myocardial infarction, unspecified (ICD-10) Lumbar spondylosis ?M47.816 - Spondylosis without myelopathy or radiculopathy, lumbar region (ICD-10) Surgical History H/O cervical spinal arthrodesis ?Z98.1 - Arthrodesis status (ICD-10) Port-A-Cath in place ?Z95.828 - Presence of other vascular implants and grafts (ICD-10) History of lumbar fusion ?Z98.1 - Arthrodesis status (ICD-10) H/O hysterectomy with oophorectomy H/O gastric bypass ?Z98.84 - Bariatric surgery status (ICD-10) History of hernia repair ?Z98.890 - Other specified postprocedural states (ICD-10) ?Z87.19 - Personal history of other diseases of the digestive system (ICD-10) History of rotator cuff surgery ?Z98.890 - Other specified postprocedural states (ICD-10) History of right knee joint replacement ?Z96.651 - Presence of right artificial knee joint (ICD-10) History of appendectomy ?Z90.49 - Acquired absence of other specified parts of digestive tract (ICD-10) Hx of cholecystectomy ?Z90.49 - Acquired absence of other specified parts of digestive tract (ICD-10) Family History Father Family history of CHF (congestive heart failure) Family history of diabetes mellitus Family history of hypertension Family history of myocardial infarction Family history of stroke Mother Family history of CHF (congestive heart failure) Family history of COPD (chronic obstructive pulmonary disease) Family history of diabetes mellitus Family history of hypertension Family history of myocardial infarction Family history of stroke Social History (Updated 09/15/24 @ 22:10 by Rosa Isela Marroquin RN) Within the past year, how often did you have a drink containing alcohol: never Within the past year, how often did you have six or more drinks on one occasion: never Score interpretation: A score less than 3 is consistent with normal alcohol consumption. 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 Highest level of school completed/degree received: some college, no degree Are you now , , , , never or living with a partner: In a typical week, how many times do you talk on the telephone with family, friends, or neighbors: 3 or more times per week How often do you get together with friends or relatives: twice per week How often do you attend yazidi or sabianism services: 4 or more times per year Do you belong to any clubs or organizations such as yazidi groups unions, [employer] or athletic groups, or school groups: no Total score: 3 Score interpretation: A score of greater than or equal to 2 indicates the lowest level of social isolation. Little interest or pleasure in doing things: not at all Feeling down, depressed, or hopeless: not at all Feel stressed/tense/nervous/anxious/difficulty sleeping: to some extent Life stressors: recent of family or friend Do you think of yourself as: straight/heterosexual Gender Identity: female Meds Home Medications and Allergies Home Medications ?Medication ?Instructions ?Recorded ?Confirmed ?Type alprazolam 0.5 mg tablet 0.5 mg PO BID PRN anxiety 12/08/22 10/15/24 History amitriptyline 150 mg tablet 300 mg PO BEDTIME 12/08/22 10/15/24 History calcium acetate(phosphat bind) 667 667 mg PO BIDWM 12/08/22 10/07/24 History mg capsule levothyroxine 100 mcg tablet 100 mcg PO DAILY 12/08/22 10/15/24 History linaclotide 290 mcg capsule 290 mcg PO DAILY 12/08/22 10/15/24 History (Linzess) oxycodone-acetaminophen 5 mg-325 2 tab PO Q6H PRN pain 12/08/22 10/15/24 History mg tablet primidone 50 mg tablet 150 mg PO BEDTIME 12/08/22 10/15/24 History tizanidine 4 mg tablet (Zanaflex) 4 mg PO Q6H PRN muscle spasticity 12/08/22 10/15/24 History azelastine 0.05 % eye drops 1 drp ophthalmic (eye) DAILY 09/29/23 10/15/24 History desvenlafaxine succinate 50 mg 50 mg PO DAILY 09/29/23 10/15/24 History tablet,extended release 24 hr doxepin 10 mg capsule 20 mg PO BEDTIME 09/29/23 10/15/24 History escitalopram oxalate 20 mg tablet 20 mg PO DAILY 09/29/23 10/15/24 History fentanyl 100 mcg/hr transdermal 1 patch transdermal Q72H 10/12/23 10/15/24 History patch pramipexole 1 mg tablet 1 mg PO .QHS 10/23/23 10/15/24 History sacubitril 49 mg-valsartan 51 mg 1 tab PO BID 01/04/24 10/15/24 History tablet (Entresto) apixaban 5 mg tablet (Eliquis) 5 mg PO BID 03/29/24 10/15/24 History sevelamer carbonate 800 mg tablet 800 mg PO BID 03/29/24 10/07/24 History calcitriol 0.5 mcg capsule 0.5 mcg PO DAILY 10/07/24 10/15/24 History torsemide 100 mg tablet 100 mg PO DAILY 10/07/24 10/15/24 History bumetanide 2 mg tablet 2 mg PO BID 10/15/24 10/15/24 History zpgphibbjz-sdvfmwzdwqqzk-schaxekc 1 tab PO BID PRN migraine headache 10/15/24 10/15/24 History 50 mg-325 mg-40 mg tablet liothyronine 25 mcg tablet 25 mcg PO DAILY 10/15/24 10/15/24 History Allergies Allergy/AdvReac Type Severity Reaction Status Date / Time povidone-iodine (From Allergy Intermediate Rash Verified 10/15/24 16:19 Betadine) amoxicillin (From Augmentin) AdvReac Mild Vomiting Verified 10/15/24 16:19 clavulanic acid (From AdvReac Mild Vomiting Verified 10/15/24 16:19 Augmentin) Sulfa (Sulfonamide AdvReac Mild Vomiting Verified 10/15/24 16:19 Antibiotics) ciprofloxacin (From Cipro) AdvReac Unknown Vomiting Verified 10/15/24 16:19 Exam Constitutional Documenting provider has reviewed patient's vital signs: yes Common normals: no apparent distress, oriented x3, healthy appearing, alert and well nourished General appearance: cooperative [facility] Common normals: normocephalic, hearing grossly normal bilaterally and moist oral mucous membranes Head and scalp: normocephalic Eye Common normals: PERRL Pupil: PERRL Neck & C-Spine Common normals: full ROM General: normal visual inspection Chest Common normals: inspection of chest normal Respiratory Common normals: normal respiratory effort, no retractions and no use of accessory muscles Back & Pelvis Lumbar spine/lower back: pain with ROM, lumbar spinal tenderness, straight leg raise positive right and straight leg raise positive left Other: decreased sensation bilateral L5/S1 strength 4/5 in BLE Neuro Common normals: oriented x3 Sensorium/orientation: alert Gait (neuro): assistive device used walker Psych Common normals: mental status grossly normal, thought process normal, cooperative, affect normal, speech normal and activity/motor behavior normal Speech: normal speech Thought process: normal thought process Results Additional Findings Additional findings: If on a controlled substance or opioids, I have checked an [place] report on this patient and there are no aberrancies noted in the prescribing history.??If on a controlled substance or opioid a drug screen was completed and reviewed within the last year, and if there has not been a drug screen completed we ordered one today to monitor higher risk, state monitored pain medication use. As part of providing excellent, safe, comprehensive care, the following was completed at our patient's visit: 1. A medication reconciliation and review to ensure accurate knowledge of current/active medications, including asking our patients to inform us about any gqam-scb-sihplsx medications or herbal remedies/nutritional supplements/alternative remedies. 2. A review to specifically ensure our patients have had annual screening for screening for depression, screening for tobacco use, and screening for unhealthy alcohol use. For concerning screenings had a discussion with the patient, provided patient education, and recommended follow-up with primary care provider when appropriate. If patient noted with a risk of falling, they received education on strength, gait, and balance training to prevent future risk of falling. Portions of this note may have been carried over from the previous visit and updated as appropriate. Please note this office utilizes paper charting in addition to the electronic medical record. A list of current medications, vitals, and PMH is available there as the clinical staff outside of myself do not have access to [employer] charting during the clinic day operations. As part of providing quality comprehensive care the current medications, vitals, and PMH were reviewed in the paper chart. Assessment and Plan Assessment and Plan (1) Lumbar stenosis with neurogenic claudication: Assessment and Plan: The patient has had over 3 months of moderate to severe low back and BLE pain with functional impairment and inadequate response to conservative care including NSAIDS (unless there are contraindication such as concurrent blood thinners), multiple oral or topical pain medications, and home exercise program/physical therapy.? Patient has completed >6 weeks of guided home exercise program and/or formal physical therapy program without relief of their symptoms.? I have reviewed the imaging of the lumbar spine and no red flags were identified.? The imaging reveals radiographic findings consistent with lumbar stenosis with NC The Oswestry Disability Index was completed, and the patient scored a 74%.? The patient noted the following:?? moderate to severe pain impacting ALDs, sitting, standing, walking, sleeping, social life, travel We discussed the risks and benefits of the procedure with the patient, and we are NOT planning on using sedation as outlined in the guidelines from Medicare unless there is a documented reason that sedation would be strongly recommended.?? ?The procedure will be completed with fluoroscopic guidance.? (2) Sacroiliitis: (3) Lumbar spondylosis: Plan bilateral L5-S1 TFESI under fluoroscopy continue HEP as tolerated continue medications through PCP f/u 2 weeks after injection
== END 2024-11-27 11:12 | disposition home or self-care (01) ==
LOC: PM 11:12
PROVIDERS: PCP Family Medicine; Visit Provider Nurse Practitioner
DX: M48.062 Spinal stenosis, lumbar region with neurogenic claudication (principal); M46.1 Sacroiliitis, not elsewhere classified; M47.816 Spondylosis without myelopathy or radiculopathy, lumbar region
CPT/HCPCS: G0463

== ENCOUNTER 2024-12-09 10:00 | Day surgery (SDC) | payer MEDICARE, MEDICAID, SELFPAY ==
[2024-12-09 10:25] VITALS: BP 129/87; PULSE 97; TEMP 36.2; O2SAT 100
[2024-12-09 10:40] VITALS: BP 123/80; BP 127/82; PULSE 71; PULSE 72; O2SAT 100
[2024-12-09] MEDS: LIDOCAINE HCL 2% 400 MG/20 ML MDV 3 ML INJ (10:42)
[2024-12-09] MEDS: BUPIVACAINE HCL 0.25% PF 25 MG/10 ML VIAL INJ (10:42)
[2024-12-09] MEDS: 0.9 % SODIUM CHLORIDE 10 ML SYRINGE - SALINE FLUSH INJ (10:42)
[2024-12-09] MEDS: IOHEXOL 240 MG/ML - 10 ML VIAL INJ (10:42)
[2024-12-09] MEDS: METHYLPREDNISOLONE ACETATE 80 MG/ML VIAL INJ (10:43)
--- NOTE | 2024-12-09 10:45 | W.PM.PROCNOT ---
Date of procedure: 12/09/24 Pre-op diagnosis: Pain due to lumbar stenosis with neurogenic claudication Post-op diagnosis: same as pre-op Procedure: Procedure: Bilateral L5-S1 transforaminal epidural steroid injection Medications: Bupivacaine 0.25% 2cc, lidocaine 2% 1cc, depomedrol 80mg The patient was seen and examined in the preoperative holding area.? Informed consent was obtained and placed on the chart.? Patient was brought to the medical procedure unit and placed in the prone position where a timeout was completed verifying the correct patient, procedure site, position, and planned special equipment using sterile aseptic technique.? Under direct fluoroscopic visualization a 25-gauge Quincke tipped spinal needle was advanced at level left L5-S1 to the designated neural foramen where contrast dye was injected to show adequate spread.? There was no evidence of vascular or adverse uptake.? Epidural spread was appreciated.? The above-mentioned injectate was then placed in a 1.5 mL aliquot preceded by negative aspiration.? The needle was removed. The same procedure, at the same level, was completed on the opposite side. ? Patient was taken to the postprocedural recovery area and monitored for an appropriate length of time before found suitable for discharge in the accompaniment of a responsible adult. Anesthesia: Local Surgeon: Riki Smith Pathology: none sent Condition: stable Disposition: no change
== END 2024-12-09 10:51 | disposition home or self-care (01) ==
LOC: SURGOUT 10:01
PROVIDERS: PCP Family Medicine; Visit Provider Anesthesiology
DX: M48.062 Spinal stenosis, lumbar region with neurogenic claudication (principal); M54.50 Low back pain, unspecified
CPT/HCPCS: 64483; J0665; J1010; Q9966

== ENCOUNTER 2024-12-10 08:03 | Outpatient (RCR) | payer MEDICARE, MEDICAID, SELFPAY ==
[2024-11-26] MEDS: HEPARIN SODIUM (PORCINE) PF LOCK FLUSH 500 UNIT/5 ML SYRINGE IV (12:04)
[2024-11-26] MEDS: EPOETIN ALFA-EPBX 20,000 UNIT/ML VIAL 20000 UNIT SUBQ (12:04)
--- NOTE | 2024-11-26 14:50 | PC.NURSE ---
1115 Arrival ambulatory with rolling walker. Rt chest port accessed per Colin RN, excellent blood return noted. labs drawn and sent to laboratory. port flushed with 20 ml of ns followed by heparin lock flush soln. port deaccessed.
--- NOTE | 2024-11-26 14:51 | PC.NURSE ---
1155 injection as ordered sq, tolerated well. Dr. Godienz and Dr Rae notified of elevated Cr and BUN. no new orders obtained. 1210 Released ambulatory
[2024-12-10 10:59] VITALS: BP 117/77; PULSE 87; TEMP 36.6; O2SAT 100
[2024-12-10] MEDS: HEPARIN SODIUM (PORCINE) PF LOCK FLUSH 500 UNIT/5 ML SYRINGE IV (11:12)
--- NOTE | 2024-12-10 11:28 | PC.NURSE ---
1105 Rt chest port accessed by Jorge A MCGEE utilizing 20 ga 3/4 in james on 2nd attempt, excellent blood return, labs drawn and sent to laboratory. patient tolerated well
== END 2024-12-23 23:59 | disposition home or self-care (01) ==
LOC: HEMC 08:03
PROVIDERS: PCP Family Medicine; Visit Provider Internal Medicine Hematology & Oncology
DX: E87.70 Fluid overload, unspecified (principal); E87.1 Hypo-osmolality and hyponatremia; D63.1 Anemia in chronic kidney disease; D50.9 Iron deficiency anemia, unspecified; K90.9 Intestinal malabsorption, unspecified; N18.32 Chronic kidney disease, stage 3b; I12.9 Hypertensive chronic kidney disease with stage 1 through stage 4 chronic kidney disease, or unspecified chronic kidney disease
CPT/HCPCS: 36415; 36591; 80053; 83930; 85025; 96372; J1642; Q5106

== ENCOUNTER 2024-12-10 08:04 | Outpatient (RCR) | payer MEDICARE, MEDICAID, SELFPAY ==
[2024-11-26 11:25] LABS: Basophils Percent Auto 0.4 % (0.2-2.0); Eosinophils Absolute Auto 0.1 10^3/uL (0.0-0.7); Eosinophils Percent Auto 1.1 % (0.9-7.0); Hematocrit 30.6 % (36.0-48.0); Hemoglobin 9.7 g/dL (12.0-16.0); Immature Granulocytes Abs Auto 0.04 10^3/uL (0.00-0.03); Immature Granulocytes Pct Auto 0.5 % (0.0-0.5); Mean Corpuscular HGB Conc 31.7 g/dL (29.9-35.2); Mean Corpuscular Hemoglobin 30.6 pg (26.7-34.0); Mean Corpuscular Volume 96.5 fL (81.0-99.0); Mean Platelet Volume 8.8 fL (9.5-13.5); Monocytes Absolute Auto 0.8 10^3/uL (0.3-0.8); Monocytes Percent Auto 10.7 % (1.7-12.0); Neutrophils Absolute Auto 5.4 10^3/uL (1.4-6.5); Neutrophils Percent Auto 73.3 % (43.0-75.0); Platelet Count 339 10^3/uL (150-450); Red Blood Count 3.17 10^6/uL (4.20-5.40); Red Cell Distribution Width 13.5 % (11.0-15.0); White Blood Count 7.4 10^3/uL (4.0-11.0)
[2024-11-26 11:45] LABS: Alanine Aminotransferase 20 U/L (14-59); Albumin Globulin Ratio 0.8; Albumin Level 3.1 g/dL (3.4-5.0); Alkaline Phosphatase 298 U/L (46-116); Anion Gap 17.1; Aspartate Amino Transferase 23 U/L (15-37); BUN Creatinine Ratio 37.4; Bilirubin Total 0.2 mg/dL (0.2-1.0); Calcium 8.4 mg/dL (8.5-10.1); Carbon Dioxide 24.7 mmol/L (21.0-32.0); Chloride 97 mmol/L (98-107); Estimated GFR (African America 22 (>=60 mL/min/1.73m^2); Estimated GFR (Non-African Ame 18 (>=60 mL/min/1.73m^2); Globulin 3.8 g/dL; Glucose 81 mg/dL (74-106); Potassium 4.8 mmol/L (3.5-5.1); Sodium 134 mmol/L (136-145); Total Protein 6.9 g/dL (6.4-8.2)
[2024-12-10 11:29] LABS: Basophils Percent Auto 0.4 % (0.2-2.0); Eosinophils Absolute Auto 0.1 10^3/uL (0.0-0.7); Eosinophils Percent Auto 2.6 % (0.9-7.0); Hematocrit 36.2 % (36.0-48.0); Hemoglobin 11.6 g/dL (12.0-16.0); Immature Granulocytes Abs Auto 0.03 10^3/uL (0.00-0.03); Immature Granulocytes Pct Auto 0.6 % (0.0-0.5); Lymphocytes Absolute Auto 1.4 10^3/uL (1.2-3.8); Lymphocytes Percent Auto 26.5 % (20.5-60.0); Mean Corpuscular Hemoglobin 30.9 pg (26.7-34.0); Mean Corpuscular Volume 96.3 fL (81.0-99.0); Mean Platelet Volume 9.1 fL (9.5-13.5); Monocytes Absolute Auto 0.5 10^3/uL (0.3-0.8); Monocytes Percent Auto 9.5 % (1.7-12.0); Neutrophils Absolute Auto 3.2 10^3/uL (1.4-6.5); Neutrophils Percent Auto 60.4 % (43.0-75.0); Platelet Count 259 10^3/uL (150-450); Red Blood Count 3.76 10^6/uL (4.20-5.40); Red Cell Distribution Width 13.7 % (11.0-15.0); White Blood Count 5.3 10^3/uL (4.0-11.0)
--- NOTE | 2024-12-10 11:30 | PC.NURSE ---
1105 Rt chest port accessed by Jorge A MCGEE utilizing 20 ga 3/4 in james on 2nd attempt, excellent blood return, labs drawn and sent to laboratory. patient tolerated well
[2024-12-10 11:47] LABS: Alanine Aminotransferase 18 U/L (14-59); Albumin Globulin Ratio 0.8; Alkaline Phosphatase 298 U/L (46-116); Anion Gap 9.5; Aspartate Amino Transferase 19 U/L (15-37); BUN Creatinine Ratio 35.6; Bilirubin Total 0.2 mg/dL (0.2-1.0); Calcium 9.1 mg/dL (8.5-10.1); Carbon Dioxide 31.7 mmol/L (21.0-32.0); Chloride 96 mmol/L (98-107); Estimated GFR (African America 35 (>=60 mL/min/1.73m^2); Estimated GFR (Non-African Ame 29 (>=60 mL/min/1.73m^2); Glucose 70 mg/dL (74-106); Potassium 4.2 mmol/L (3.5-5.1); Sodium 133 mmol/L (136-145)
== END 2024-12-23 23:59 | disposition home or self-care (01) ==
LOC: INF 08:04
PROVIDERS: PCP Family Medicine; Visit Provider Family Medicine
DX: E87.70 Fluid overload, unspecified (principal); I10 Essential (primary) hypertension; E87.1 Hypo-osmolality and hyponatremia
CPT/HCPCS: 36415; 36591; 80053; 83930; 85025

== ENCOUNTER 2024-12-19 09:56 | Outpatient (OUT) | payer MEDICARE, MEDICAID, SELFPAY ==
--- NOTE | 2024-12-19 10:35 | PM.CN ---
Consult Note: HPI Data of Consult Patient: known to practice within the last 3 years Requesting Physician: Louann Jackson NP Primary Care Provider: Yuri Godinez MD Consult Narrative Reason for consult: f/u Narrative: Mabel Moser a pleasant 64 year old female presents for evaluation of chronic back pain. Pt currently on percocet, fentanyl, voltaren gel through PCP. cannot take NSAIDs due to CKD. engages in HEP >6 weeks without improvement. recently underwent bilateral L5/S1 TFESI with >50% improvement ongoing. pt would like to discuss upper thoracic pain worsening over time, has had chronic pain >1 year. cc:: CC: Louann Jackson NP Review of Systems ROS Status of ROS 10 or more systems reviewed and unremarkable except as noted in history and below [facility] Medical History Hyperglycemia ?R73.9 - Hyperglycemia, unspecified (ICD-10) Recurrent UTI ?N39.0 - Urinary tract infection, site not specified (ICD-10) Atelectasis of both lungs ?J98.11 - Atelectasis (ICD-10) C2 cervical fracture ?S12.100A - Unspecified displaced fracture of second cervical vertebra, initial encounter for closed fracture (ICD-10) Shoulder pain, left ?M25.512 - Pain in left shoulder (ICD-10) Pulmonary embolism ?I26.99 - Other pulmonary embolism without acute cor pulmonale (ICD-10) DVT (deep venous thrombosis) ?I82.409 - Acute embolism and thrombosis of unspecified deep veins of unspecified lower extremity (ICD-10) Osteoporosis ?M81.0 - Age-related osteoporosis without current pathological fracture (ICD-10) Seizures ?R56.9 - Unspecified convulsions (ICD-10) IBS (irritable bowel syndrome) ?K58.9 - Irritable bowel syndrome without diarrhea (ICD-10) D-dimer, elevated ?R79.89 - Other specified abnormal findings of blood chemistry (ICD-10) Chronic kidney insufficiency ?N18.9 - Chronic kidney disease, unspecified (ICD-10) Fluid overload ?E87.70 - Fluid overload, unspecified (ICD-10) Lymphedema ?I89.0 - Lymphedema, not elsewhere classified (ICD-10) Volume overload ?E87.70 - Fluid overload, unspecified (ICD-10) Anemia of chronic disease ?D63.8 - Anemia in other chronic diseases classified elsewhere (ICD-10) Chronic kidney disease ?N18.9 - Chronic kidney disease, unspecified (ICD-10) Acute kidney injury ?N17.9 - Acute kidney failure, unspecified (ICD-10) Edema of lower leg due to peripheral venous insufficiency ?I87.2 - Venous insufficiency (chronic) (peripheral) (ICD-10) ?R60.0 - Localized edema (ICD-10) Depression ?F32.A - Depression, unspecified (ICD-10) Gastroenteritis ?K52.9 - Noninfective gastroenteritis and colitis, unspecified (ICD-10) Migraine without aura and without status migrainosus, not intractable ?G43.009 - Migraine without aura, not intractable, without status migrainosus (ICD-10) Chronic heart failure with preserved ejection fraction (HFpEF) ?I50.32 - Chronic diastolic (congestive) heart failure (ICD-10) Chest pain ?R07.9 - Chest pain, unspecified (ICD-10) Dyspnea ?R06.00 - Dyspnea, unspecified (ICD-10) Osteoarthritis ?M19.90 - Unspecified osteoarthritis, unspecified site (ICD-10) Anemia ?D64.9 - Anemia, unspecified (ICD-10) Anxiety ?F41.9 - Anxiety disorder, unspecified (ICD-10) Stroke ?I63.9 - Cerebral infarction, unspecified (ICD-10) Acid reflux ?K21.9 - Gastro-esophageal reflux disease without esophagitis (ICD-10) Hypothyroid ?E03.9 - Hypothyroidism, unspecified (ICD-10) COPD (chronic obstructive pulmonary disease) ?J44.9 - Chronic obstructive pulmonary disease, unspecified (ICD-10) Asthma ?J45.909 - Unspecified asthma, uncomplicated (ICD-10) CHF (congestive heart failure) ?I50.9 - Heart failure, unspecified (ICD-10) Irregular heart beat ?I49.9 - Cardiac arrhythmia, unspecified (ICD-10) HTN (hypertension) ?I10 - Essential (primary) hypertension (ICD-10) Heart attack ?I21.9 - Acute myocardial infarction, unspecified (ICD-10) Lumbar spondylosis ?M47.816 - Spondylosis without myelopathy or radiculopathy, lumbar region (ICD-10) Surgical History H/O cervical spinal arthrodesis ?Z98.1 - Arthrodesis status (ICD-10) Port-A-Cath in place ?Z95.828 - Presence of other vascular implants and grafts (ICD-10) History of lumbar fusion ?Z98.1 - Arthrodesis status (ICD-10) H/O hysterectomy with oophorectomy H/O gastric bypass ?Z98.84 - Bariatric surgery status (ICD-10) History of hernia repair ?Z98.890 - Other specified postprocedural states (ICD-10) ?Z87.19 - Personal history of other diseases of the digestive system (ICD-10) History of rotator cuff surgery ?Z98.890 - Other specified postprocedural states (ICD-10) History of right knee joint replacement ?Z96.651 - Presence of right artificial knee joint (ICD-10) History of appendectomy ?Z90.49 - Acquired absence of other specified parts of digestive tract (ICD-10) Hx of cholecystectomy ?Z90.49 - Acquired absence of other specified parts of digestive tract (ICD-10) Family History Father Family history of CHF (congestive heart failure) Family history of diabetes mellitus Family history of hypertension Family history of myocardial infarction Family history of stroke Mother Family history of CHF (congestive heart failure) Family history of COPD (chronic obstructive pulmonary disease) Family history of diabetes mellitus Family history of hypertension Family history of myocardial infarction Family history of stroke Social History (Updated 09/15/24 @ 22:10 by Rosa Isela Marroquin RN) Within the past year, how often did you have a drink containing alcohol: never Within the past year, how often did you have six or more drinks on one occasion: never Score interpretation: A score less than 3 is consistent with normal alcohol consumption. 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 Highest level of school completed/degree received: some college, no degree Are you now , , , , never or living with a partner: In a typical week, how many times do you talk on the telephone with family, friends, or neighbors: 3 or more times per week How often do you get together with friends or relatives: twice per week How often do you attend sikh or yazidi services: 4 or more times per year Do you belong to any clubs or organizations such as sikh groups unions, fraternal or athletic groups, or school groups: no Total score: 3 Score interpretation: A score of greater than or equal to 2 indicates the lowest level of social isolation. Little interest or pleasure in doing things: not at all Feeling down, depressed, or hopeless: not at all Feel stressed/tense/nervous/anxious/difficulty sleeping: to some extent Life stressors: recent of family or friend Do you think of yourself as: straight/heterosexual Gender Identity: female Meds Home Medications and Allergies Home Medications ?Medication ?Instructions ?Recorded ?Confirmed ?Type alprazolam 0.5 mg tablet 0.5 mg PO BID PRN anxiety 12/08/22 12/09/24 History amitriptyline 150 mg tablet 300 mg PO BEDTIME 12/08/22 12/09/24 History calcium acetate(phosphat bind) 667 667 mg PO BIDWM 12/08/22 12/09/24 History mg capsule levothyroxine 100 mcg tablet 100 mcg PO DAILY 12/08/22 12/09/24 History linaclotide 290 mcg capsule 290 mcg PO DAILY 12/08/22 12/09/24 History (Linzess) oxycodone-acetaminophen 5 mg-325 2 tab PO Q6H PRN pain 12/08/22 12/09/24 History mg tablet primidone 50 mg tablet 150 mg PO BEDTIME 12/08/22 12/09/24 History tizanidine 4 mg tablet (Zanaflex) 4 mg PO Q6H PRN muscle spasticity 12/08/22 12/09/24 History azelastine 0.05 % eye drops 1 drp ophthalmic (eye) DAILY 09/29/23 12/09/24 History desvenlafaxine succinate 50 mg 50 mg PO DAILY 09/29/23 12/09/24 History tablet,extended release 24 hr doxepin 10 mg capsule 20 mg PO BEDTIME 09/29/23 12/09/24 History escitalopram oxalate 20 mg tablet 20 mg PO DAILY 09/29/23 12/09/24 History fentanyl 100 mcg/hr transdermal 1 patch transdermal Q72H 10/12/23 12/09/24 History patch pramipexole 1 mg tablet 1 mg PO .QHS 10/23/23 12/09/24 History sacubitril 49 mg-valsartan 51 mg 1 tab PO BID 01/04/24 12/09/24 History tablet (Entresto) apixaban 5 mg tablet (Eliquis) 5 mg PO BID 03/29/24 12/09/24 History sevelamer carbonate 800 mg tablet 800 mg PO BID 03/29/24 12/09/24 History calcitriol 0.5 mcg capsule 0.5 mcg PO DAILY 10/07/24 12/09/24 History torsemide 100 mg tablet 100 mg PO DAILY 10/07/24 12/09/24 History eqmpqaatlx-djeyuivrynsjr-gqtcsnla 1 tab PO BID PRN migraine headache 10/15/24 12/09/24 History 50 mg-325 mg-40 mg tablet liothyronine 25 mcg tablet 25 mcg PO DAILY 10/15/24 12/09/24 History Allergies Allergy/AdvReac Type Severity Reaction Status Date / Time povidone-iodine (From Allergy Intermediate Rash Verified 12/09/24 10:29 Betadine) amoxicillin (From Augmentin) AdvReac Mild Vomiting Verified 12/09/24 10:29 clavulanic acid (From AdvReac Mild Vomiting Verified 12/09/24 10:29 Augmentin) Sulfa (Sulfonamide AdvReac Mild Vomiting Verified 12/09/24 10:29 Antibiotics) ciprofloxacin (From Cipro) AdvReac Unknown Vomiting Verified 12/09/24 10:29 Exam Constitutional Documenting provider has reviewed patient's vital signs: yes Common normals: no apparent distress, oriented x3, healthy appearing, alert and well nourished General appearance: cooperative [facility] Common normals: normocephalic, hearing grossly normal bilaterally and moist oral mucous membranes Head and scalp: normocephalic Eye Common normals: PERRL Pupil: PERRL Neck & C-Spine Common normals: full ROM General: normal visual inspection Chest Common normals: inspection of chest normal Respiratory Common normals: normal respiratory effort, no retractions and no use of accessory muscles Back & Pelvis Thoracic spine/upper back: ROM limited, pain with ROM, thoracic spinal tenderness T-spine tenderness location: T4, T5, T6 and T7, paraspinal muscle tenderness and paraspinal muscle spasm Thoracic paraspinal muscle spasm: bilateral Lumbar spine/lower back: ROM limited, pain with ROM and straight leg raise negative bilaterally Other: facet tenderness bilaterally to T4-7 strength 5/5 in BUE Extremity Common normals: normal to inspection and full ROM Neuro Common normals: oriented x3 Sensorium/orientation: alert Psych Common normals: mental status grossly normal, thought process normal, cooperative, affect normal, speech normal and activity/motor behavior normal Speech: normal speech Thought process: normal thought process Results Additional Findings Additional findings: If on a controlled substance or opioids, I have checked an [place] report on this patient and there are no aberrancies noted in the prescribing history.??If on a controlled substance or opioid a drug screen was completed and reviewed within the last year, and if there has not been a drug screen completed we ordered one today to monitor higher risk, state monitored pain medication use. As part of providing excellent, safe, comprehensive care, the following was completed at our patient's visit: 1. A medication reconciliation and review to ensure accurate knowledge of current/active medications, including asking our patients to inform us about any fjtk-xmy-fhpxtec medications or herbal remedies/nutritional supplements/alternative remedies. 2. A review to specifically ensure our patients have had annual screening for screening for depression, screening for tobacco use, and screening for unhealthy alcohol use. For concerning screenings had a discussion with the patient, provided patient education, and recommended follow-up with primary care provider when appropriate. If patient noted with a risk of falling, they received education on strength, gait, and balance training to prevent future risk of falling. Portions of this note may have been carried over from the previous visit and updated as appropriate. Please note this office utilizes paper charting in addition to the electronic medical record. A list of current medications, vitals, and PMH is available there as the clinical staff outside of myself do not have access to [facility] charting during the clinic day operations. As part of providing quality comprehensive care the current medications, vitals, and PMH were reviewed in the paper chart. Assessment and Plan Assessment and Plan (1) Thoracic spondylosis: Assessment and Plan: The patient has had over 3 months of moderate to severe thoracic pain with functional impairment and inadequate response to conservative care including NSAIDS (unless there are contraindication such as concurrent blood thinners), multiple oral or topical pain medications, and home exercise program/physical therapy.? Patient has completed >6 weeks of guided home exercise program and/or formal physical therapy program without relief of their symptoms.? I have reviewed the imaging of the thoracic spine and no red flags were identified.? The imaging reveals radiographic findings consistent with thoracic spondylosis We discussed the risks and benefits of the procedure with the patient, and we are NOT planning on using sedation as outlined in the guidelines from Medicare unless there is a documented reason that sedation would be strongly recommended.?? ?The procedure will be completed with fluoroscopic guidance.? (2) Cervical spondylosis: (3) Lumbar stenosis with neurogenic claudication: Assessment and Plan: 12/09/24 bilateral L5/S1 TFESI >50% improvement ongoing Plan proceed with bilateral T5/6 T6/7 facet medial branch block x2 working towards RFA continue medications through PCP continue HEP as tolerated f/u after each injection
== END 2024-12-19 09:57 | disposition home or self-care (01) ==
LOC: PM 09:57
PROVIDERS: PCP Family Medicine; Visit Provider Nurse Practitioner
DX: M47.814 Spondylosis without myelopathy or radiculopathy, thoracic region (principal); M47.812 Spondylosis without myelopathy or radiculopathy, cervical region; M48.062 Spinal stenosis, lumbar region with neurogenic claudication
CPT/HCPCS: G0463

== ENCOUNTER 2025-01-02 10:04 | Outpatient (RCR) | payer MEDICARE, MEDICAID, SELFPAY ==
[2025-01-02 10:48] LABS: Glucose Urine UA NEGATIVE (NEGATIVE)
[2025-01-02 10:58] LABS: Magnesium 2.9 mg/dL (1.8-2.4); Uric Acid 5.8 mg/dL (2.6-6.0)
[2025-01-02 10:59] LABS: Protein Creatinine Ratio Urine 0.32; Total Protein Urine Random 11.2 mg/dL (<=11.9)
== END 2025-01-03 07:49 | disposition home or self-care (01) ==
LOC: INF 10:04
PROVIDERS: PCP Family Medicine; Visit Provider Internal Medicine Nephrology
DX: E87.70 Fluid overload, unspecified (principal); N18.32 Chronic kidney disease, stage 3b; E55.9 Vitamin D deficiency, unspecified; N25.81 Secondary hyperparathyroidism of renal origin; I50.9 Heart failure, unspecified; E87.5 Hyperkalemia
CPT/HCPCS: 81003; 82043; 82306; 82570; 83735; 83970; 84100; 84156; 84550

== ENCOUNTER 2025-01-07 08:27 | Outpatient (RCR) | payer MEDICARE, MEDICAID, SELFPAY ==
[2024-12-24 11:00] VITALS: BP 98/63; PULSE 80; TEMP 36.6; O2SAT 95
--- NOTE | 2024-12-24 11:56 | PC.NURSE ---
Dr. Rae notified of pt. BUN.
[2025-01-02 10:07] VITALS: BP 123/83; PULSE 80; TEMP 36.4; O2SAT 99
[2025-01-02 10:34] LABS: Hematocrit 34.1 % (36.0-48.0); Hemoglobin 10.9 g/dL (12.0-16.0); Immature Granulocytes Abs Auto 0.01 10^3/uL (0.00-0.03); Immature Granulocytes Pct Auto 0.2 % (0.0-0.5); Lymphocytes Absolute Auto 1.4 10^3/uL (1.2-3.8); Mean Corpuscular HGB Conc 32.0 g/dL (29.9-35.2); Mean Corpuscular Hemoglobin 30.6 pg (26.7-34.0); Mean Corpuscular Volume 95.8 fL (81.0-99.0); Platelet Count 208 10^3/uL (150-450); Red Blood Count 3.56 10^6/uL (4.20-5.40); White Blood Count 4.9 10^3/uL (4.0-11.0)
[2025-01-02] MEDS: HEPARIN SODIUM (PORCINE) PF LOCK FLUSH 500 UNIT/5 ML SYRINGE IV (10:35)
[2025-01-02 11:00] LABS: Alanine Aminotransferase 20 U/L (14-59); Albumin Globulin Ratio 0.9; Albumin Level 2.9 g/dL (3.4-5.0); Alkaline Phosphatase 247 U/L (46-116); Anion Gap 15.8; Aspartate Amino Transferase 21 U/L (15-37); Blood Urea Nitrogen 30.0 mg/dL (7.0-18.0); Calcium 8.3 mg/dL (8.5-10.1); Carbon Dioxide 23.0 mmol/L (21.0-32.0); Chloride 101 mmol/L (98-107); Estimated GFR (African America 53 (>=60 mL/min/1.73m^2); Estimated GFR (Non-African Ame 43 (>=60 mL/min/1.73m^2); Globulin 3.2 g/dL; Potassium 4.8 mmol/L (3.5-5.1); Sodium 135 mmol/L (136-145); Total Protein 6.1 g/dL (6.4-8.2)
[2025-01-02 11:08] LABS: Glucose 42 mg/dL (74-106)
[2025-01-07 11:34] VITALS: BP 116/61; PULSE 80; TEMP 36.6; O2SAT 99
[2025-01-07 11:56] LABS: Hematocrit 34.1 % (36.0-48.0); Hemoglobin 10.9 g/dL (12.0-16.0); Immature Granulocytes Abs Auto 0.01 10^3/uL (0.00-0.03); Immature Granulocytes Pct Auto 0.2 % (0.0-0.5); Lymphocytes Absolute Auto 1.3 10^3/uL (1.2-3.8); Mean Corpuscular HGB Conc 32.0 g/dL (29.9-35.2); Mean Corpuscular Hemoglobin 31.0 pg (26.7-34.0); Mean Corpuscular Volume 96.9 fL (81.0-99.0); Platelet Count 186 10^3/uL (150-450); Red Blood Count 3.52 10^6/uL (4.20-5.40); White Blood Count 5.3 10^3/uL (4.0-11.0)
[2025-01-07 12:22] LABS: Alanine Aminotransferase 26 U/L (14-59); Albumin Globulin Ratio 0.7; Albumin Level 2.5 g/dL (3.4-5.0); Alkaline Phosphatase 230 U/L (46-116); Anion Gap 10.8; Aspartate Amino Transferase 21 U/L (15-37); Blood Urea Nitrogen 34.0 mg/dL (7.0-18.0); Calcium 8.4 mg/dL (8.5-10.1); Carbon Dioxide 25.9 mmol/L (21.0-32.0); Chloride 100 mmol/L (98-107); Estimated GFR (African America 41 (>=60 mL/min/1.73m^2); Estimated GFR (Non-African Ame 34 (>=60 mL/min/1.73m^2); Globulin 3.7 g/dL; Glucose 65 mg/dL (74-106); Potassium 4.7 mmol/L (3.5-5.1); Sodium 132 mmol/L (136-145); Total Protein 6.2 g/dL (6.4-8.2)
[2025-01-21 10:25] LABS: Hematocrit 32.9 % (36.0-48.0); Hemoglobin 9.9 g/dL (12.0-16.0); Immature Granulocytes Abs Auto 0.01 10^3/uL (0.00-0.03); Immature Granulocytes Pct Auto 0.2 % (0.0-0.5); Lymphocytes Absolute Auto 1.3 10^3/uL (1.2-3.8); Mean Corpuscular HGB Conc 30.1 g/dL (29.9-35.2); Mean Corpuscular Hemoglobin 29.7 pg (26.7-34.0); Mean Corpuscular Volume 98.8 fL (81.0-99.0); Platelet Count 212 10^3/uL (150-450); Red Blood Count 3.33 10^6/uL (4.20-5.40); White Blood Count 4.3 10^3/uL (4.0-11.0)
[2025-01-21 11:01] LABS: Alanine Aminotransferase 28 U/L (14-59); Albumin Globulin Ratio 0.9; Albumin Level 2.9 g/dL (3.4-5.0); Alkaline Phosphatase 222 U/L (46-116); Anion Gap 12.8; Aspartate Amino Transferase 23 U/L (15-37); Blood Urea Nitrogen 29.0 mg/dL (7.0-18.0); Calcium 8.5 mg/dL (8.5-10.1); Carbon Dioxide 23.5 mmol/L (21.0-32.0); Chloride 105 mmol/L (98-107); Estimated GFR (African America 42 (>=60 mL/min/1.73m^2); Estimated GFR (Non-African Ame 35 (>=60 mL/min/1.73m^2); Globulin 3.4 g/dL; Glucose 110 mg/dL (74-106); Potassium 5.3 mmol/L (3.5-5.1); Sodium 136 mmol/L (136-145); Total Protein 6.3 g/dL (6.4-8.2)
== END 2025-01-23 23:59 | disposition home or self-care (01) ==
LOC: INF 08:27
PROVIDERS: PCP Family Medicine; Visit Provider Family Medicine
DX: E87.70 Fluid overload, unspecified (principal); I10 Essential (primary) hypertension; E87.1 Hypo-osmolality and hyponatremia; N18.32 Chronic kidney disease, stage 3b; E55.9 Vitamin D deficiency, unspecified; N25.81 Secondary hyperparathyroidism of renal origin; E87.5 Hyperkalemia; D50.9 Iron deficiency anemia, unspecified; K90.9 Intestinal malabsorption, unspecified; D63.1 Anemia in chronic kidney disease; Z90.49 Acquired absence of other specified parts of digestive tract; Z90.710 Acquired absence of both cervix and uterus; Z98.84 Bariatric surgery status; I50.30 Unspecified diastolic (congestive) heart failure; Z79.899 Other long term (current) drug therapy; R11.2 Nausea with vomiting, unspecified; K21.9 Gastro-esophageal reflux disease without esophagitis
CPT/HCPCS: 36415; 36591; 80053; 81003; 82043; 82306; 82570; 82728; 83540; 83550; 83735; 83930; 83970; 84100; 84156; 84550; 85025; G0463; J1642

== ENCOUNTER 2025-01-07 08:28 | Outpatient (RCR) | payer MEDICARE, MEDICAID, SELFPAY ==
[2024-12-24] MEDS: HEPARIN SODIUM (PORCINE) PF LOCK FLUSH 500 UNIT/5 ML SYRINGE IV (11:12)
[2024-12-24 11:33] LABS: Hematocrit 34.5 % (36.0-48.0); Hemoglobin 11.4 g/dL (12.0-16.0); Immature Granulocytes Abs Auto 0.02 10^3/uL (0.00-0.03); Immature Granulocytes Pct Auto 0.3 % (0.0-0.5); Lymphocytes Absolute Auto 1.1 10^3/uL (1.2-3.8); Mean Corpuscular HGB Conc 33.0 g/dL (29.9-35.2); Mean Corpuscular Hemoglobin 31.0 pg (26.7-34.0); Mean Corpuscular Volume 93.8 fL (81.0-99.0); Platelet Count 233 10^3/uL (150-450); Red Blood Count 3.68 10^6/uL (4.20-5.40); White Blood Count 5.7 10^3/uL (4.0-11.0)
[2024-12-24 11:49] LABS: Alanine Aminotransferase 19 U/L (14-59); Albumin Globulin Ratio 0.8; Albumin Level 3.1 g/dL (3.4-5.0); Alkaline Phosphatase 278 U/L (46-116); Anion Gap 11.6; Aspartate Amino Transferase 20 U/L (15-37); Calcium 8.9 mg/dL (8.5-10.1); Carbon Dioxide 30.4 mmol/L (21.0-32.0); Chloride 93 mmol/L (98-107); Estimated GFR (African America 28 (>=60 mL/min/1.73m^2); Estimated GFR (Non-African Ame 23 (>=60 mL/min/1.73m^2); Globulin 3.7 g/dL; Glucose 96 mg/dL (74-106); Potassium 4.0 mmol/L (3.5-5.1); Sodium 131 mmol/L (136-145); Total Protein 6.8 g/dL (6.4-8.2)
[2024-12-24 11:55] LABS: Blood Urea Nitrogen 96.0 mg/dL (7.0-18.0)
[2024-12-24 12:04] LABS: Iron 100.0 ug/dL (50.0-170.0); Percent Iron Saturation 38.6 %; Total Iron Binding Capacity 259.0 ug/dL (250.0-450.0)
[2024-12-24 12:08] LABS: Ferritin 181.0 ng/mL (8.0-252.0)
== END 2025-01-23 23:59 | disposition home or self-care (01) ==
LOC: HEMC 08:28
PROVIDERS: PCP Family Medicine; Visit Provider Internal Medicine Hematology & Oncology
DX: D50.9 Iron deficiency anemia, unspecified (principal); K90.9 Intestinal malabsorption, unspecified; D63.1 Anemia in chronic kidney disease; N18.32 Chronic kidney disease, stage 3b; Z90.49 Acquired absence of other specified parts of digestive tract; Z90.710 Acquired absence of both cervix and uterus; Z98.84 Bariatric surgery status; I50.30 Unspecified diastolic (congestive) heart failure; Z79.899 Other long term (current) drug therapy; R11.2 Nausea with vomiting, unspecified; K21.9 Gastro-esophageal reflux disease without esophagitis
CPT/HCPCS: 36591; 80053; 82728; 83540; 83550; 83930; 85025; G0463; J1642

== ENCOUNTER 2025-01-21 09:55 | Outpatient (OUT) | payer MEDICARE, MEDICAID, SELFPAY ==
--- OUTSIDE RECORDS SUMMARY | 2024-09-11 09:33 | XMS_ITS | CCD ---
Author Organization [facility] Care Team Providers Care Engine Hostler Name Role Phone NIRMAL LEWIS Admitting Unavailable NIRMAL LEWIS Attending Unavailable YURI SANTANA Primary Care Unavailable NIRMAL LEWIS Admitting Unavailable NIRMAL LEWIS Attending Unavailable YURI SANTANA Primary Care Unavailable [place] Unavailable CARLOS REZA Admitting Unavailable CARLOS REZA Attending Unavailable YURI SANTANA Primary Care Unavailable YURI SANTANA Referring Unavailable Robert Johnston Admitting Unavailable Robert Johnston Attending Unavailable YURI SANTANA Referring Unavailable YURI SANTANA Primary Care Unavailable TadDonnie blairariel Unavailable Sue Leiva Unavailable MD Yuri Santana Primary Care Provider [phone] WALLY Helm Emergency Provider ROBERT JOHNSTON Attending Unavailable ROBERT JOHNSTON Admitting Unavailable ESTHER ., DR BARBOUR Primary Care Unavailable DR BUNNY ZEPEDA Consulting Unavailable ROBERT JOHNSTON Consulting Unavailable MUKUNDY ., DR BARBOUR Admitting Unavailable HOY ., DR BARBOUR Primary Care Unavailable HOY ., DR BARBOUR Consulting Unavailable HOY ., DR BARBOUR Attending Unavailable HOY ., DR BRABOUR Admitting Unavailable HOY ., DR BARBOUR Primary [...] Consulting Unavailable EDGARDO AMEZCUA Consulting Unavailable VITALENUNO ROGERS Consulting Unavailable HOY ., DR BARBOUR Admitting Unavailable HOY ., DR BARBOUR Primary Care Unavailable HOY ., DR BARBOUR Consulting Unavailable HOY ., DR BARBOUR Attending Unavailable HOY ., DR BARBOUR Admitting Unavailable HOY ., DR BARBOUR Primary Care Unavailable HOY ., DR BARBOUR Consulting Unavailable HOY ., DR ABRBOUR Attending Unavailable HOY ., DR BARBOUR Admolena [...] DR BARBOUR Consulting Unavailable HOY ., DR BRABOUR Attending Unavailable SHAWANO, DR CARLOS Castillo Consulting Unavailable LAKSHMIPATHY ., [...] Unavailable HOY ., DR BARBOUR Consulting Unavailable MUKUNDY ., DR BARBOUR Attending Unavailable MD Yuri Santana Primary Care Provider [phone] MD Beatriz Oh Admit Provider DO Jim Randhawa Attending Provider [phone] MD [place] Other Provider Jim Randhawa Attending Unavailable Beatriz Oh Admolena Unavailable [place] Consulting Unavailable Yuri Santana Primary Care Unavailable Favian Helm Admitting Unavailable Favian Helm Attending Unavailable Yuri Santana Primary Care Unavailable HOY, YURI M Referring Unavailable HOY, YURI M Primary Care Unavailable HoyVinayYuri Primary Care Physician Migel MCKINNEY Attending Unavailable Mukundy, Yuri Referring Unavailable LOUKA, MERE Admitting Unavailable LOUKA, MERE Attending Unavailable BALJINDER HUGHES Referring Unavailable ARMAND, ARMAND MOON Consulting Unavailable HOY, YURI M Primary Care Unavailable AFANEH, AMER JEISON-HAFIZ Admitting Unavail able AFANEH, AMER JEISON-HAFIZ Attending Unavail able ARMAND, ARMAND MOON Consulting Unavailable HOY, YURI M Primary Care Unavailable BUNNY PARIKH Consulting Unavailable YASMINJENNY Duron Consulting Unavailable ALIPINEDA Consulting Unavailable ZAIDAMATTHEW Hankins Consulting Unavailable RADHA WADE Consulting Unavailable LUCIANO WEISS Consulting Unavailable THUMMALDAPHNE SALVADORHEETH Consulting Unavaila ble ALTON Castillo, BENJIE Referring Unavailable HOY, YURI M Primary Care Unavailable MOUKASAUL Castillo, BENJIE Referring Unavailable HOY, YURI M Primary Care Unavailable MOUKARBSUE Castillo, BENJIE Referring Unavailable HOY, YURI M Primary Care Unavailable MOUKARBEL Anna, BENJIE Referring Unavailable HOY, YURI M Primary Care Unavailable ELATTAR, MARIA ESTHERMA Attending Unavailable ELATTAR, OSAMA Referring Unavailable ELATTAR, OSAMA Referring Unavailable ELATTAR, OSAMA Referring Unavailable MOUKABENJIE HUGHES Attending Unavailable MOUKABENJIE HUGHES Attending Unavailable Allergies Allergy Classification Reported Allergen(s) Allergy Type Date of Onset Reaction(s) Facility (12 sources) Amoxicillin Drug Allergy 10-29-19 23 Unknown, Diarrhea [facility] (6 sources) Amoxicillin / Clavulanate; Translations: [amoxicillin-clavul anate] Drug Allergy Weal (disorder) [facility] [place] (16 sources) Povidone-Iodine; Translations: [POVIDONE-IODINE] Drug Allergy 08-15-19 17 Eruption of skin (disorder) [facility] (9 sources) Sulfamethoxazole / Trimethoprim Drug Allergy Unknown [facility] Other (1 source) sulfaSALAzine Drug Allergy Unknown [facility] Other (8 sources) Amoxicillin / Clavulanate; Translations: [Augmentin] Drug Allergy 11-26-19 13 Unknown [facility] (1 source) Bumetanide Drug Allergy 03-22-20 16 [facility] (1 source) Cephalexin Drug Allergy 01-15-20 14 [facility] (2 sources) gabapentin; Translations: [GABAPENTIN] Drug Allergy 08-19-19 22 [facility] (4 sources) Povidone-Iodine; Translations: [Betadine] Drug Allergy 11-26-19 13 [facility] (1 source) pregabalin; Translations: [LYRICA] Drug Allergy 08-19-19 22 [facility] (9 sources) Sulfonamides (Antibiotic); Translations: [SULFA (SULFONAMIDE ANTIBIOTICS)] Drug allergy (disorder) 11-26-19 13 Rash [facility] (1 source) Sulfonamide Drug allergy Unknown [facility] Other (7 sources) Substance with sulfonamide structure and antibacterial mechanism of action (substance) Drug allergy Unknown [facility] Other (4 sources) Clavulanate; Translations: [clavulanic acid] Drug Allergy 10-29-19 Diarrhea [facility] (1 source) Ciprofloxacin Drug Allergy 05-26-20 [facility] (1 source) Amoxicillin Drug Allergy 04-04-20 [facility] (1 source) Povidone-Iodine Drug Allergy 04-04-20 [facility] (2 sources) Sulfamethoxazole Drug Allergy 04-04-20 23 Unknown Reaction [facility] (1 source) Sulfonamides (Antibiotic) Drug allergy (disorder) 04-04-20 [facility] (2 sources) Trimethoprim Drug Allergy 04-04-20 Unknown Reaction [facility] Repository (3 sources) AMOXICILLIN-POT CLAVULANATE; Translations: [AMOXICILLIN-POT CLAVULANATE] Propensity to adverse reactions to drug (disorder) 06-13-20 14 [facility] Rep[facility] (2 sources) Sulfonamides (Antibiotic); Translations: [sulfa drugs] Drug allergy Eruption of skin (disorder) [facility] [place] (1 source) carvedilol; Translations: [CARVEDILOL] Drug Allergy 12-21-19 [facility] (1 source) Cephalexin; Translations: [CEPHALEXIN] Drug Allergy 06-13-20 14 [facility] Rep[facility] (1 source) Ciprofloxacin; Translations: [CIPROFLOXACIN] Drug Allergy 10-11-19 [facility] (1 source) Iodine; Translations: [IODINE] Drug Allergy 11-28-19 [facility] (1 source) pregabalin; Translations: [PREGABALIN] Drug Allergy 10-11-19 [facility] (1 source) Sulfamethoxazole / Trimethoprim; Translations: [SULFAMETHOXAZOLE-T RIMETHOPRIM] Drug Allergy 11-28-19 [facility] Repository Medications Current Medications Medication Drug Class(es) Dates Sig (Normalized) Sig (Original) acetaminophen 300 mg / butalbital 50 mg / caffeine 40 mg oral capsule (4 sources) Barbiturate, Central Nervous System Stimulant, Methylxanthine Start: 02-12-2024 take 1 capsule by mouth every four hours Fioricet oral capsule 1 cap(s), Oral, q4hr Migraine headache, Refill(s) 0 Start Date: 02/12/24 Status: Ordered Start: 10-28-2022 End: 06-30-2023 Glmazrecnq-Ddfrghdrxgmbn-Kri f Discontinued 1 CAP PO As Directed October 28, 2022 12:00am June 30, 2023 1:27am 200 actuat albuterol 0.09 mg/actuat dry powder inhaler (4 sources) beta2-Adrenergic Agonist Start: 03-26-2024 Albut malik Sulfate Active 2 INH INHALATION Every 6 hours March 26, 2024 12:00am Start: 10-28-2022 End: 06-30-2023 take 1 puff(s) by inhalation every six hours Albuterol Sulfate Discontinued 1 PUFF INHALATION Q6H October 28, 2022 12:00am June 30, 2023 1:25am albuterol 0.833 mg/ml / ipratropium bromide 0.167 mg/ml inhalation solution (4 sources) Anticholinergic, beta2-Adrenergic Agonist Start: 03-26-2024 Ipratropium-Albuterol Active 3 ML INHALATION every 6 to 8 hours March 26, 2024 12:00am Start: 10-28-2022 End: 06-30-2023 take 1 mL by inhalation every six hours Ipratropium-Albuterol Discontinued 3 ML INHALATION Q6H October 28, 2022 12:00am June 30, 2023 1:26am ALPRAZolam 0.5 mg oral tablet (14 sources) Benzodiazepine Start: 03-26-2024 take 0.5 mg by mouth twice daily Alprazolam Active 0.5 MG PO Twice daily March 26, 2024 12:00am Start: 02-12-2024 take 1 tablet by joseph th twice daily as needed for anxiety alprazolam 0.5 mg Tab 0.5 mg = 1 tab(s), Oral, BID, PRN for anxiety, Refills(s) 0 Start Date: 02/12/24 Status: Ordered Start: 08-31-2018 End: 03-26-2024 take 2 tablets by mouth twice daily Alprazolam (Xanax) 0.25 mg Tablet Discontinued 0.5 MG PO Twice daily August 31, 2018 1:00am March 26, 2024 12:01pm take 1 tablet by joseph th twice [...] Active amitriptyline hydrochloride 150 mg oral tablet (16 sources) Tricyclic Antidepressant Start: 02-12-2024 take 2 tablets by mouth once daily at bedtime amitriptyline 150 mg Tab 300 mg = 2 tab(s), Oral, Once a day (at bedtime), Refills(s) 0 Start Date: 02/12/24 Status: Ordered Start: 10-28-2022 take 300 mg by mouth at bedtim e Amitriptyline Active 300 MG PO Bedtime October 28, 2022 12:00am Start: 10-28-2022 take 150 mg by mouth once montrell y Amitriptyline Active 150 MG PO Daily October 28, 2022 12:00am Start: 08-31-2018 End: 09-04-2018 take 200 mg by mouth once daily Amitriptyline Disccaprii nued 200 MG PO Daily August 31, 2018 1:00am September 04, 2018 7:59am apixaban 5 mg oral tablet (2 sources) Factor Xa Inhibitor Start: 03-26-2024 take 1 tablet by mouth twice daily Apixaban (Eliquis) 5 mg tablet Active 5 MG PO Twice daily March 26, 2024 12:00am Start: 02-12-2024 take 1 tablet by joseph th twice daily Eliquis 5 mg oral tablet 5 mg = 1 tab(s), Oral, BID, Refills(s) 0 Start Date: 02/12/24 Status: Ordered ARIPiprazole 2 mg oral tablet (12 sources) Atypical Antipsychotic Start: 10-28-2022 take 2 mg by mouth once daily Aripiprazole Active 2 MG PO Daily October 28, 2022 12:00am aspirin 81 mg chewable tablet (1 source) Platelet Aggregation Inhibitor, Nonsteroidal Anti-inflammatory Drug Start: 02-12-2024 aspirin 81 mg Chew Tab 81 mg = 1 tab(s), Chewed, Daily, Refills(s) 0 Start Date: 02/12/24 Status: Ordered atorvastatin 40 mg oral tablet (1 source) HMG-CoA Reductase Inhibitor Start: 02-12-2024 take 1 tablet by mouth once daily atorvastatin 40 mg Tab 40 mg = 1 tab(s), Oral, Daily, Refills(s) 0 Start Date: 02/12/24 Status: Ordered B Complex (Folic Acid) - (9 sources) B Complex (Folic Acid) - as directed Orally ONCE A DAY Active bumetanide 1 mg oral tablet (20 sources) Loop Diuretic Start: 03-26-2024 take 2 mg by mouth three times daily Bumetanide Active 2 MG PO Three times daily March 26, 2024 12:03pm Start: 02-12-2024 take 1 tablet by joseph th twice daily bumetanide 2 mg Tab 2 mg = 1 tab(s), Oral, BID, Refills(s) 0 Start Date: 02/12/24 Status: Ordered Start: 07-03-2023 End: 07-03-2023 take 6 mg by mouth once daily as needed Bumetanide Discontinued 2 MG PO Twice daily 60 July 03, 2023 2:00pm July 03, 2023 1:50pm MAY TAKE UP TO 6 MG DAILY PRN Start: 07-03-2023 End: 03-26-2024 take 2 mg by mouth twice daily Bumetanide Discontinued 2 MG PO Twice daily 60 July 03, 2023 2:00pm March 26, 2024 12:11pm Take twice daily Start: 07-03-2023 End: 07-03-2023 take 6 mg by mouth once daily as needed Bumetanide Discontinued 2 MG PO Twice daily 60 July 03, 2023 1:00pm July 03, 2023 12:50pm MAY TAKE UP TO 6 MG DAILY PRN Start: 10-28-2022 End: 07-03-2023 take 6 mg by mouth once daily as needed Bumetanide Discontinued 2 MG PO Daily October 28, 2022 12:00am July 03, 2023 1:49pm MAY TAKE UP TO 6 MG DAILY [...] tartrate 1 mg/actuat metered dose nasal spray (6 sources) Opioid Agonist/Antagonist Start: 02-12-2024 buto rphanol 10 mg/mL Nasal [place] = 1 spray(s), Nasal, Daily, PRN as needed for pain, Refills(s) 0 Start Date: 02/12/24 Status: Ordered Start: 10-28-2022 End: 06-30-2023 Butorphanol Active 1 SPRAY I NTRANASAL Daily June 30, 2023 1:00am calcium acetate 667 mg oral capsule (7 sources) Start: 10-28-2022 take 667 mg by mouth twice daily at mealtime Calcium Acetate(Phosphat Bind) Active 667 MG PO Twice daily October 28, 2022 12:00am WITH MEALS take 2 tablets by mouth [...] succinate 50 mg extended release oral tablet (6 sources) Serotonin and Norepinephrine Reuptake Inhibitor Start: 02-12-2024 take 1 tablet by mouth once daily desvenlafaxine 50 mg Tab- 50 mg = 1 tab(s), Oral, Daily, Refills(s) 0 Start Date: 02/12/24 Status: Ordered Start: 06-30-2023 take 100 mg by mouth once daily Desvenlafaxine Succinate Active 100 MG PO Daily June 30, 2023 1:00am Start: 10-28-2022 End: 06-30-2023 take 50 mg by mouth once daily Desvenlafaxine Succinate Discontinued 50 MG PO Daily October 28, 2022 12:00am June 30, 2023 1:30am docusate sodium 250 mg oral capsule (1 source) take 1 capsule by mouth once daily as needed Docusate Sodium 250 MG 1 capsule as needed Orally Once a day NEEDED Active doxepin hydrochloride 10 mg oral capsule (1 source) Tricyclic Antidepressant Start: 02-12-20 take 1-2 capsules by mouth once daily at bedtime doxepin 10 mg Cap 1-2 caps, Oral, Once a day (at bedtime), Refills(s) 0 Start Date: 02/12/24 Status: Ordered escitalopram 20 mg oral tablet (4 sources) Serotonin Reuptake Inhibitor Start: 02-12-20 take 1 tablet by mouth once daily Lexapro 20 mg Tab 20 mg = 1 tab(s), Oral, Daily, Refills(s) 0 Start Date: 02/12/24 Status: Ordered Start: 10-28-2022 End: 06-30-2023 take 20 mg by mouth once daily Escitalopram Oxalate Di scontinued 20 MG PO Daily October 28, 2022 12:00am June 30, 2023 1:27am 72 hr fentaNYL 0.1 mg/hr transdermal system (17 sources) Opioid Agonist Start: 10-28-2022 Fentanyl Activ e 1 PATCH TRANSDERML Q72H October 28, 2022 12:00am Start: 09-16-2020 Duragesic-100 transdermal film, extended release = 1 patch(es), Topical, q72hr, EA, Refills(s) 0 Start Date: 09/16/20 Status: Ordered Start: 08-31-2018 End: 10-28-2022 Fentanyl Discontinued 1 PATC H TRANSDERML Q72H August 31, 2018 1:00am October 28, 2022 7:54pm fentaNYL 100 MCG /HR 1 patch to skin Transdermal EVERY 72 HOURS Active fentaNYL 50 MCG/ HR 1 patch to skin Transdermal CHANGE EVERY 72 HOURS Active fludrocortisone acetate 0.1 mg oral tablet (6 sources) take 2 tablets by mouth in the morning, then take 1 tablet by mouth twice daily in the evening Fludrocortisone Acetate 0.1 MG 2 tablets in am, 1 tablet in pm Orally twice a day Active 30 actuat fluticasone furoate 0.1 mg/actuat / vilanterol 0.025 mg/actuat dry powder inhaler (6 sources) Corticosteroid, beta2-Adrenergi c Agonist Start: 03-26-20 Fluticasone Furoate-Vilanterol (Breo Ellipta) 100-25 mcg/dose blister with device Active 1 INH INHALATION Daily March 26, 2024 12:00am Start: 09-08-2020 take 1 puff(s) by in halation once daily Breo Ellipta 100 mcg-25 mcg inhalation powder 1 puff(s), Inhalation, Daily, 30 dose unit Start Date: 09/08/20 Status: Ordered Start: 08-31-2018 End: 06-30-2023 Fluticasone Furoate-Vilanter ol (Breo Ellipta) 100-25 mcg/dose Blister With Device Discontinued 1 INH INHALATION Daily August 31, 2018 1:00am June 30, 2023 1:25am Start: 08-31-2018 End: 06-30-2023 Fluticasone Furoate-Vilanter ol (Breo Ellipta) 100-25 mcg/dose Blister With Device Discontinued 1 INH INHALATION Daily August 31, 2018 12:00am June 30, 2023 12:25am Start: 08-31-2018 Fluticasone Fu roate-Vilanterol (Breo Ellipta) 100-25 mcg/dose Blister With Device Active 1 INH INHALATION Daily August 31, 2018 1:00am take 1 puff(s) by in halation once daily BREO ELLIPTA 100 mcg/25 mcg 1 puff Inhalation daily Active hydroCHLOROthiazide 50 mg / triamterene 75 mg oral tablet (6 sources) Potassium-sparing Diuretic, Thiazide Diuretic take 1 tablet by mouth every twenty-four hours Triamterene-HCTZ 75-50 MG 1 tablet in the morning Orally Once a day Active hyoscyamine sulfate 0.125 mg oral tablet (10 sources) Star t: 10-0 07-15 take 0.125 mg by mouth once daily Hyoscyamine Sulfate Active 0.125 MG PO Daily March 26, 2024 12:00am take 1 tablet by mouth every six hours Hyoscyamine Sulfate 0.125 MG 1 tablet on the tongue and allow to dissolve Orally Four times a day Active levothyroxine sodium 0.1 mg oral tablet (16 sources) l-Thyroxine Start: 10-28-2022 take 100 ug by mouth once daily Levothyroxine Active 100 MCG PO Daily October 28, 2022 12:00am Start: 09-08-2020 take 1 tablet by joseph th once daily levothyroxine 100 mcg (0.1 mg) Tab 100 mcg = 1 tab(s), Oral, Daily Start Date: 09/08/20 Status: Ordered Start: 08-31-2018 End: 10-28-2022 take 1 tablet by mouth once daily Levothyroxine (Synthroid) 88 mcg Tablet Discontinued 88 MCG PO Daily August 31, 2018 1:00am October 28, 2022 9:37pm linaclotide 0.29 mg oral capsule (13 sources) Guanylate Cyclase-C Agonist Start: 02-12-2024 take 1 capsule by mouth once daily Linzess 290 mcg oral capsule 290 mcg = 1 cap(s), Oral, Daily, Refills(s) 0 Start Date: 02/12/24 Status: Ordered Start: 10-28-2022 Linaclotide (L inzess) 290 mcg capsule Active 290 MCG PO Every 48 hours October 28, 2022 12:00am Start: 10-28-2022 take 1 capsule by mo uth once daily Linaclotide (Linzess) 290 mcg capsule Active 290 MCG PO Daily October 28, 2022 12:00am Linzess 290 290m cg 1 PO every other day Active Linzess 290 290m cg 1 PO Every AM Active liothyronine sodium 0.025 mg oral tablet (17 sources) l-Triiodothyronine Start: 02-12-2024 take 1 tablet by mouth once daily Cytomel 25 mcg Tab 25 mcg = 1 tab(s), Oral, Daily, Refills(s) 0 Start Date: 02/12/24 Status: Ordered Start: 10-28-2022 End: 03-26-2024 take 1 tablet by mouth once daily Liothyronine (Cytomel) 25 mcg Tablet Active 25 MCG PO DAILY@0630 30 30 July 03, 2023 1:00am take 1 tablet by joseph every twenty-four hours Liothyronine Sodium 25 MCG 1 tablet on an empty stomach Orally Once a day Active loratadine 10 mg oral tablet (5 sources) Start: 06-29-2023 take 1 tablet by mouth once daily Loratadine (Claritin) 10 mg Tablet Active 10 MG PO Daily June 29, 2023 1:00am Multi For Her - (9 sources) Multi For Her - as directed Orally Active ondansetron 4 mg disintegrating oral tablet (13 sources) Serotonin-3 Receptor Antagonist Start: 02-12-2024 take 1 tablet by mouth every six hours as needed for nausea ondansetron 4 mg Dis Tab 4 mg = 1 tab(s), Oral, q6hr, PRN Nausea/Vomiting, Refills(s) 0 Start Date: 02/12/24 Status: Ordered Start: 08-31-2018 Ondansetron Hc l (Zofran) 4 mg Tablet Active 4 MG PO every 6 to 8 hours August 31, 2018 1:00am take 1 tablet by joseph th once daily as needed Ondansetron 4 MG 1 tablet on the tongue and allow to dissolve Orally Once a day PRN Active pantoprazole 40 mg delayed release oral tablet (15 sources) Proton Pump Inhibitor Start: 02-12-2024 take 1 tablet by mouth once daily Protonix 40 mg Tab-DR 40 mg = 1 tab(s), Oral, Daily, Refills(s) 0 Start Date: 02/12/24 Status: Ordered Start: 06-30-2023 End: 03-26-2024 take 1 tablet by mouth twice daily Pantoprazole (Protonix) 40 mg Tablet,Delayed Release (Dr/Ec) Discontinued 40 MG PO Twice daily June 30, 2023 1:00am March 26, 2024 12:10pm Start: 08-31-2018 End: 06-30-2023 take 2 tablets by mouth twice daily Pantoprazole (Protonix) 20 mg Tablet,Delayed Release (Dr/Ec) Discontinued 40 MG PO Twice daily August 31, 2018 1:00am June 30, 2023 11:41am Start: 08-31-2018 take 1 tablet by joseph once daily Pantoprazole (Protonix) 20 mg Tablet,Delayed Release (Dr/Ec) Active 20 MG PO Daily August 31, 2018 1:00am pramipexole dihydrochloride 1 mg oral tablet (3 sources) Nonergot Dopamine Agonist Start: 06-30-2023 take 1 tablet by mouth once daily pramipexole 1 mg Tab 1 mg = 1 tab(s), Oral, Daily, Refills(s) 0 Start Date: 02/12/24 Status: Ordered primidone 50 mg oral tablet (16 sources) Anti-epileptic Agent Start: 03-26-2024 take 150 mg by mouth at bedtime Primidone Active 150 MG PO Bedtime March 26, 2024 12:08pm Start: 02-12-2024 take 3 tablets by mo [facility] once daily primidone 50 mg Tab 150 mg = 3 tab(s), Oral, Daily, Refills(s) 0 Start Date: 02/12/24 Status: Ordered Start: 06-29-2023 End: 03-26-2024 take 100 mg by mouth at bedtime Primidone Discontinued 100 MG PO Bedtime June 29, 2023 1:00am March 26, 2024 12:11pm Start: 08-31-2018 End: 09-04-2018 take 100 mg by mouth twice daily Primidone Discontinued 100 MG PO Twice daily August 31, 2018 1:00am September 04, 2018 7:59am take 2 tablets by mo [facility] every twenty-four hours Primidone 50 MG 2 [...] EXCEED 3 DOSES PER 24 HRS. Active rosuvastatin calcium 20 mg oral tablet (1 source) HMG-CoA Reductase Inhibitor Start: take 20 mg by mouth once daily Rosuvastatin Active 20 MG PO Daily March 26, 2024 12:00am sacubitril 97 mg / valsartan 103 mg oral tablet (20 sources) Angiotensin 2 Receptor Catrachita Start: End: take 1 tablet by mouth twice daily Entresto 97 mg-103 mg oral tablet 1 tab(s), Oral, BID, Refill(s) 0 Start Date: 02/12/24 Status: Ordered Start: 10-28-2022 End: 06-29-2023 take 1 tablet by mouth twice daily Sacubitril-Valsartan (Entresto) 49-51 mg tablet Discontinued 1 TAB PO Twice daily October 28, 2022 12:00am June 30, 2023 12:34am take 3 tablets by [facility] twice daily Sacubitril-Valsartan 97-103 MG 3 tablet Orally Twice a day Active take 3 tablets by mo uth twice daily Sacubitril-Valsartan 24-26 MG 3 tablet Orally Twice a day Active spironolactone 100 mg oral tablet (4 sources) Aldosterone Antagonist Start: 02-12-2024 take 1 tablet by mouth twice daily spironolactone 100 mg Tab 100 mg = 1 tab(s), Oral, BID, Refills(s) 0 Start Date: 02/12/24 Status: Ordered Start: 08-31-2018 End: 06-30-2023 take 100 mg by mouth once daily Spironolactone Discontinued 100 MG PO Daily August 31, 2018 1:00am June 30, 2023 1:31am tiZANidine 4 mg oral tablet (13 sources) Central alpha-2 Adrenergic Agonist Start: 09-08-2020 take 2 tablets by mouth every eight hours tiZANidine 4 mg Tab 8 mg = 2 tab(s), Oral, q8hr Start Date: 09/08/20 Status: Ordered Start: 08-31-2018 End: 03-26-2024 take 4 mg by mouth three times daily Tizanidine Discontinued 4 MG PO Three times daily August 31, 2018 1:00am March 26, 2024 12:10pm Start: 08-31-2018 Tizanidine Act ankur 4 MG PO every 6 to 8 hours August 31, 2018 1:00am take 1 tablet by joseph th every six hours tiZANidine HCl 4 MG 1 tablet as needed Orally four times a day Active vitamin b12 1 mg/ml injectable solution (1 source) Vitamin B12 Start: 02-12-2024 inject 1000 ug by intramuscular injection every month cyanocobalamin 1000 mcg/mL Inj 1,000 mcg, IntraMuscular, qMonth, Refills(s) 0 Start Date: 02/12/24 Status: Ordered Completed/Discontinued Medications Medication Drug Class(es) Dates Sig (Normalized) Sig (Original) acetaminophen 325 mg / oxyCODONE hydrochloride 5 mg oral tablet (15 sources) Opioid Agonist Start: 06-29-2023 End: 06-30-2023 take 1 tablet by mouth twice daily Oxycodone-Acetamino phen (Percocet) 5-325 mg tablet Discontinued 1 TAB PO 2 times daily June 29, 2023 1:00am June 30, 2023 11:41am Start: 08-31-2018 take 1 tablet by joseph th every six hours Oxycodone-Acetaminophen (Percocet) 5-325 mg Tablet Active 1 - 2 TAB PO Q6H August 31, 2018 1:00am Start: 08-31-2018 take 2 tablets by mo uth every four to six hours Oxycodone-Acetaminophen (Percocet) 5-325 mg Tablet Active 2 TAB PO EVERY 4-6 HOURS August 31, 2018 1:00am take 2 tablets by mo [facility] every four hours as needed oxyCODONE-Acetaminophen 5-325 MG 2 table t as needed Orally every 4 hrs PRN Active 24 hr buPROPion hydrochloride 300 mg extended release oral tablet (3 sources) Aminoketone Start: 08-31-2018 End: 06-30-2023 take 1 tablet by mouth once daily in the morning Bupropion Hcl (Wellbutrin Xl) 300 mg Tablet Extended Release 24 Hr Discontinued 300 MG PO Every morning August 31, 2018 1:00am June 30, 2023 1:27am diclofenac sodium 0.01 mg/mg topical gel (1 source) Nonsteroidal Anti-inflammatory Drug Start: 02-12-2024 Voltaren Gel 1% Gel 2 gm, Topical, BID, Refill(s) 0 Start Date: 02/12/24 Status: Ordered dicyclomine hydrochloride 20 mg oral tablet (4 sources) Anticholinergic Start: 10-28-2022 End: 06-30-2023 Dicyclomine Discontinued 20 MG PO As Directed October 28, 2022 12:00am June 30, 2023 1:30am take 1 tablet by [facility] four times daily as needed Dicyclomine HCl 20 MG 1 tablet Orally Fo ur times a day NEEDED Active DULoxetine 60 mg delayed release oral capsule (12 sources) Serotonin and Norepinephrine Reuptake Inhibitor Start: 10-28-2022 End: 03-26-2024 take 120 mg by mouth once daily Duloxetine Discontinued 120 MG PO Daily October 28, 2022 12:00am March 26, 2024 12:05pm take 1 capsule by [facility] every twelve hours DULoxetine HCl 60 MG 1 capsule Orally Tw ice a day Active ferrous sulfate 324 mg delayed release oral tablet (5 sources) Start: 07-03-2023 End: 03-26-2024 take 324 mg by mouth once daily Ferrous Sulfate Discontinued 324 MG PO Daily July 03, 2023 1:00am March 26, 2024 12:10pm Start: 08-31-2018 End: 06-30-2023 take 325 mg by mouth once daily Ferrous Sulfate Discontinued 325 MG PO Daily August 31, 2018 1:00am June 30, 2023 1:30am fluconazole 100 mg oral tablet (3 sources) Azole Antifungal Start: 08-31-2018 End: 09-04-2018 take 100 mg by mouth once daily Fluconazole Discontinued 100 MG PO Daily August 31, 2018 1:00am September 04, 2018 7:59am gabapentin 100 mg oral capsule (2 sources) Anti-epileptic Agent Start: 06-29-2023 End: 03-26-2024 take 100 mg by mouth three times daily Gabapentin Discontinued 100 MG PO Three times daily June 29, 2023 1:00am March 26, 2024 12:05pm hydrALAZINE hydrochloride 50 mg oral tablet (15 sources) Arteriolar Vasodilator Start: 09-08-2020 End: 06-30-2023 take 50 mg by mouth three times daily Hydralazine Discontinued 50 MG PO Three times daily October 28, 2022 12:00am June 30, 2023 1:22am levoFLOXacin 750 mg oral tablet (3 sources) Quinolone Antimicrobial Start: 08-31-2018 End: 09-04-2018 take 750 mg by mouth once daily Levofloxacin Discontinued 750 MG PO Daily August 31, 2018 1:00am September 04, 2018 7:59am metoclopramide 5 mg oral tablet (11 sources) Dopamine-2 Receptor Antagonist Start: 08-31-2018 End: 06-30-2023 take 1 tablet by mouth once daily Metoclopramide Hcl (Reglan) 5 mg Tablet Discontinued 5 MG PO Daily August 31, 2018 1:00am June 30, 2023 1:26am take 1 tablet by mouth every six hours Metoclopramide HCl 10 MG 1 tablet before meals Orally Four times a day Active metoprolol tartrate 25 mg oral tablet (12 sources) beta-Adrenergic Catrachita Start: 08-31-2018 End: 03-26-2024 take 25 mg by mouth twice daily Metoprolol Tartrate Discontinued 25 MG PO Twice daily August 31, 2018 1:00am March 26, 2024 12:10pm Start: 08-31-2018 take 50 mg by mouth twice montrell y Metoprolol Tartrate Active 50 MG PO Twice daily August 31, 2018 1:00am take 1 tablet by joseph th every twelve hours Metoprolol Tartrate 50 MG 1 tablet with food Orally Twice a day Not-Taking/PRN Ex-Lsigyyj-Nsu-Iron Fm-Fa-Vitk (Multi For Her) 18 mg iron-600 mcg-80 mcg Tablet (3 sources) Start: 08-31-2018 End: 06-30-2023 take 1 tablet by mouth once daily Yf-Yytuchf-Jtq-Iron Fm-Fa-Vitk (Multi For Her) 18 mg iron-600 mcg-80 mcg Tablet Discontinued 1 TAB PO Daily August 31, 2018 1:00am June 30, 2023 1:26am Start: 08-31-2018 End: 06-30-2023 take 1 tablet by mouth once daily Xw-Kxygnmd-Xxy-Iron Fm-Fa-Vitk (Multi For Her) 18 mg iron-600 mcg-80 mcg Tablet Discontinued 1 TAB PO Daily August 31, 2018 12:00am June 30, 2023 12:26am Start: 08-31-2018 take 1 tablet by joseph th once daily Gs-Nmdpsif-Yfe-Iron Fm-Fa-Vitk (Multi For Her) 18 mg iron-600 mcg-80 mcg Tablet Active 1 TAB PO Daily August 31, 2018 1:00am potassium chloride 10 meq extended release oral capsule (7 sources) Start: 08-31-2018 End: 06-30-2023 take 10 mEq by mouth once daily Potassium Chloride Discontinued 10 MEQ PO Daily August 31, 2018 1:00am June 30, 2023 1:30am take 1 tablet by joseph every twenty-four hours Klor-Con 10 10 MEQ 1 tablet with food Orally daily Active take 1 tablet by mouth every twe lve hours Potassium Chloride ER 10 MEQ 1 tablet with food Orally Twice a day Active sevelamer carbonate 800 mg oral tablet (9 sources) Phosphate Binder Start: 06-29-2023 End: 03-26-2024 take 1 tablet by mouth three times daily at mealtime Sevelamer Carbonate (Renvela) 800 mg tablet Discontinued 800 MG PO Three times daily January 18, 2024 9:55am March 26, 2024 12:10pm must administer with a meal/food sodium chloride 1000 mg oral tablet (3 sources) Start: 08-31-2018 End: 09-04-2018 Sodium Chloride Discontinued 1000 MG PO 1 to 4 times daily August 31, 2018 1:00am September 04, 2018 8:01am Urea (Ure-Na) 15 gram Powder In Packet (3 sources) Start: 09-04-2018 End: 06-30-2023 Urea (Ure-Na) 15 gram Powder In Packet Discontinued 30 GM PO Daily September 04, 2018 12:00am June 30, 2023 1:30am Start: 09-04-2018 End: 06-30-2023 Urea (Ure-Na) 15 gram Powder In Packet Discontinued 30 GM PO Daily September 03, 2018 11:00pm June 30, 2023 12:30am Start: 09-04-2018 Urea (Ure-Na) 15 gram Powder In Packet Active 30 GM PO Daily September 04, 2018 12:00am Vitamin D 50,000 intl units (1.25 mg) oral capsule (1 source) Start: 02-12-2024 take 1 capsule by mouth every week Vitamin D 50,000 intl units (1.25 mg) oral capsule 50,000 International_Unit = 1 cap(s), Oral, qWeek, Refills(s) 0 Start Date: 02/12/24 Status: Ordered Problems Active Problems Problem Classification Problem Date Documented Date Episodic/Chronic Acute cerebrovascular disease (1 source) Occlusion of cerebral artery with stroke Onset: 2 02-12-2024 Chronic Acute posthemorrhagic anemia (1 source) Acute posthemorrhagic anemia; Translations: [ACUTE POSTHEMORRHAGIC ANEMIA] Onset: 3 Episodic Anxiety disorders (2 sources) Anxiety disorder, unspecified; Translations: [Anxiety] Onset: 1 02-12-2024 Chronic Aortic; peripheral; and visceral artery aneurysms [...] [Chronic kidney disease, stage 3 (moderate)] Onset: 1 10-28-2022 Chronic Chronic obstructive pulmonary disease and [...] Chronic Coronary atherosclerosis and other heart disease (2 sources) Atherosclerotic heart disease of minto coronary artery without angina pectoris; Translations: [Coronary arteriosclerosis] Onset: 6 02-12-2024 Chronic Deficiency and other anemia (9 sources) [...] Onset: 3 Chronic Deficiency and other anemia (4 sources) Anemia; Translations: [Anemia, unspecified] 10-28-2022 Episodic Deficiency and other anemia (4 sources) Anemia, unspecified; Translations: [Anemia, unspecified] Onset: 3 07-03-2023 Episodic Deficiency and other anemia (1 source) Iron deficiency anemia, unspecified; Translations: [IRON DEFICIENCY ANEMIA UNSPECIFIED] Onset: 3 Episodic E Codes: Adverse effects of medical drugs (1 source) Adverse effect of xuvzeebgtfl-bkshrohjot-d nzyme inhibitors, initial encounter; Translations: [ADVERSE EFFECT ACEI INITIAL ENCNTR] Onset: 3 Episodic Epilepsy; convulsions (1 source) Epilepsy, unspecified, not intractable, without status epilepticus; Translations: [EPILEPSY UNS NOT INTRACT W/O SE] Onset: 3 Chronic Esophageal disorders (2 sources) Gastro-esophageal reflux disease without esophagitis; Translations: [Gastroesophageal reflux disease] Onset: 1 02-12-2024 Chronic Essential hypertension (14 sources) Hypertensive disorder; Translations: [Essential (primary) hypertension] Onset: 4 09-04-2018 Chronic Fluid and electrolyte disorders (20 sources) Hypervolemia; Translations: [Fluid overload, unspecified] Onset: 1 Resolved: 1 Episodic Gout and other crystal arthropathies (1 source) Gouty arthropathy Onset: 1 02-12-2024 Chronic Headache; including migraine (12 sources) Refractory migraine with aura; Translations: [Persistent migraine aura without cerebral infarction, intractable, without status migrainosus] Onset: 4 Chronic Headache; including migraine (5 sources) Headache; including migraine; Translations: [HEADACHE UNSPECIFIED] Onset: 3 Heart valve disorders (6 sources) Rheumatic disorders of both mitral and tricuspid valves; Translations: [Rheumatic tricuspid insufficiency] Onset: 1 02-12-2024 Chronic Hypertension with complications and secondary hypertension [...] encounter] Onset: 4 Episodic Malaise and fatigue (8 sources) Asthenia; Translations: [Weakness] Onset: 2 09-04-2018 Episodic Menopausal disorders (4 sources) Postmenopausal bleeding; Translations: [POSTMENOPAUSAL BLEEDING] Onset: 2 Chronic Mood disorders (1 source) Depressive disorder Onset: 3 02-12-2024 Chronic Mood disorders (1 source) Mood disorders; Translations: [DEPRESSION UNSPECIFIED] Onset: 3 Nausea and vomiting (9 sources) Nausea; Translations: [Nausea] Episodic Nutritional deficiencies (17 sources) Vitamin D deficiency; Translations: [Vitamin D deficiency, unspecified] Onset: 1 Resolved: 1 Chronic Osteoarthritis (2 sources) Bilateral primary osteoarthritis of hip; Translations: [Unilateral primary osteoarthritis, left knee] Onset: 3 Chronic Osteoporosis (2 sources) Age-related osteoporosis without current pathological fracture; Translations: [Osteoporosis] Onset: 3 02-12-2024 Chronic Other aftercare (3 sources) Polypharmacy ; Translations: [Other furnace charger (current) drug therapy] 09-04-2018 Episodic Other aftercare (1 source) Other furnace charger (current) drug therapy; Translations: [OTH FDC 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 THERAPY] Onset: 3 Episodic Other and ill-defined heart disease (1 source) Cardiomegaly 02-12-2024 Chronic Other and ill-defined heart disease (1 source) Left atrial enlargement Onset: 1 02-12-2024 Chronic Other circulatory disease (1 source) Personal history of transient ischemic attack (TIA), and cerebral infarction without residual deficits; Translations: [PERS HX TIA AND CI NO RESID DEFICIT] Onset: 3 Episodic Other circulatory disease (1 source) Difficult venous access 09-16-2020 Episodic Other circulatory disease (1 source) Vascular insufficiency 02-12-2024 Episodic Other connective tissue disease (1 source) Presence of unspecified artificial knee joint; Translations: [PRESENCE UNS ARTIFICIAL KNEE JOINT] Onset: 3 Chronic Other connective tissue disease (1 source) Myalgia, unspecified site; Translations: [MYALGIA UNSPECIFIED SITE] Onset: 3 Episodic Other connective tissue disease (1 source) Neuralgia and neuritis, unspecified; Translations: [NEURALGIA AND NEURITIS UNSPECIFIED] Onset: 3 Episodic Other connective tissue disease (1 source) History of cervical spine fusion; Translations: [Arthrodesis status] 03-26-2024 Episodic Other diseases of kidney and ureters (9 sources) Hyperparathyroidism due to renal insufficiency; Translations: [Secondary hyperparathyroidism of renal origin] Chronic Other diseases of kidney and ureters (6 sources) Secondary hyperparathyroidism of renal origin; Translations: [Secondary hyperparathyroidism (of renal origin)] Onset: 1 Resolved: 1 Chronic Other diseases of kidney and ureters (1 source) Secondary hyperparathyroidism; Translations: [Secondary hyperparathyroidism of renal origin] 03-25-2024 Chronic Other diseases of kidney and ureters (1 source) Disorder of kidney and ureter, unspecified; Translations: [DISORDER KIDNEY AND URETER UNS] Onset: 3 Episodic Other diseases of veins and lymphatics (1 source) Lymphedema 02-12-2024 Chronic Other diseases of veins and lymphatics (3 sources) Lymphedema, not elsewhere classified; Translations: [Lymphedema, not elsewhere classified] Onset: 4 Chronic Other diseases of veins and lymphatics (1 source) Venous insufficiency (chronic) (peripheral); Translations: [VENOUS INSUFF CHRONIC PERIPHERAL] Onset: 3 Episodic Other diseases of veins and lymphatics (1 source) Peripheral venous insufficiency 02-12-2024 Episodic Other ear and sense organ disorders (1 source) Bilateral hearing loss Onset: 9 02-12-2024 Chronic Other endocrine disorders (18 sources) Hypoglycemia; Translations: [Hypoglycemia, unspecified] Chronic Other endocrine disorders (1 source) Hyperparathyroidism 02-12-2024 Chronic Other fractures (1 source) Other nondisplaced [...] healing] Onset: 4 Episodic Other gastrointestinal disorders (1 source) Irritable bowel syndrome Onset: 4 02-12-2024 Chronic Other gastrointestinal disorders (9 sources) Diarrhea; Translations: [Diarrhea, unspecified] Episodic Other gastrointestinal disorders (1 source) Bariatric surgery status; Translations: [BARIATRIC SURGERY STATUS] Onset: 3 Episodic Other gastrointestinal disorders (1 source) H/O: colitis 02-12-2024 Episodic Other hereditary and degenerative nervous system conditions (1 source) Essential tremor Onset: 1 02-12-2024 Chronic Other hereditary and degenerative nervous system conditions (1 source) Mild cognitive disorder 02-12-2024 Chronic Other hereditary and degenerative nervous system conditions (1 source) Restless legs Onset: 4 02-12-2024 Chronic Other lower respiratory disease (4 sources) Shortness of breath; Translations: [SHORTNESS OF BREATH] Onset: 3 Episodic Other nervous system disorders (1 source) Other chronic pain; Translations: [OTHER CHRONIC PAIN] Onset: 3 Chronic Other nervous system disorders (4 sources) Chronic pain syndrome; Translations: [CHRONIC PAIN SYNDROME] Onset: 2 Chronic Other nervous system disorders (1 source) Polyneuropathy Onset: 3 02-12-2024 Chronic Other nervous system disorders (1 source) [...] IN RIGHT HIP] Onset: 3 Episodic Other non-traumatic joint disorders (2 sources) Pain in left shoulder; Translations: [Pain in left shoulder] Onset: 5 Episodic Other nutritional; endocrine; and metabolic disorders [...] source) Other disorders of phosphorus metabolism Chronic Other nutritional; endocrine; and metabolic disorders (1 source) Body mass index 30+ - obesity 03-05-2024 Chronic Other nutritional; endocrine; and metabolic disorders (1 source) Obese class III 02-12-2024 Chronic Paralysis (2 sources) Flaccid hemiplegia affecting right dominant side; Translations: [Flaccid hemiplegia of right dominant side] Onset: 1 02-12-2024 Chronic Pulmonary heart disease (8 sources) Pulmonary hypertension, unspecified; Translations: [Pulmonary hypertension] Onset: 1 Chronic Pulmonary heart disease (1 source) Personal [...] or radiculopathy, cervical region] Onset: 2 Chronic Spondylosis; intervertebral disc disorders; other back problems (12 sources) Muscle spasm of back; Translations: [Cervical disc disorder with radiculopathy, unspecified cervical region] Onset: 1 Episodic Superficial injury; contusion (3 sources) Contusion of right wrist, initial encounter; Translations: [Contusion of scalp, initial encounter] Onset: 3 Episodic Syncope (1 source) Syncope and collapse; Translations: [Syncope and collapse] Onset: 4 Episodic Thyroid disorders (3 sources) Hypothyroidism, unspecified; Translations: [Hypothyroidism] Onset: 4 02-12-2024 Chronic Unclassified (4 sources) LOW BACK PAIN, UNSPECIFIED; Translations: [LOW BACK PAIN, UNSPECIFIED] Onset: 3 Unclassified (1 source) PERSONAL HISTORY OF COVID-19; Translations: [PERSONAL HISTORY OF COVID-19] Onset: 3 Unclassified (1 source) CONTACT W/AND (SUSP) EXPOS COVID-19; Translations: [CONTACT W/AND (SUSP) EXPOS COVID-19] Onset: 3 Unclassified (1 source) CHRN KIDNEY DISEASE STG 3 UNSP; Translations: [CHRN KIDNEY DISEASE STG 3 UNSP] Onset: 3 Unclassified (1 source) Abrasion of skin of trunk 03-05-2024 Unclassified (1 source) Severe tricuspid valve regurgitation Onset: 1 02-12-2024 Urinary tract infections (1 source) Urinary tract infection, site not specified; Translations: [UTI SITE NOT SPECIFIED] Onset: 3 Episodic Past or Other Problems Problem Classification Problem Date Documented Da te Episodic/Chronic Acute and unspecified renal failure (7 sources) Acute kidney failure, unspecified; Translations: [Acute renal failure syndrome] Onset: 07-04-2022 06-30-2023 Episodic Chronic kidney disease (6 sources) Chronic [...] [OTHER MUSCLE SPASM] Onset: 05-05-2022 Episodic Other connective tissue disease (1 source) Fibromyalgia Onset: 08-15-2016 02-12-2024 Episodic Other fractures (1 source) Unspecified displaced [...] [Shortness of breath] Onset: 10-28-2022 Episodic Other nervous system disorders (1 source) Neurogenic claudication Onset: 01-11-2021 02-12-2024 Episodic Other non-traumatic joint disorders (1 source) Pain in unspecified hip; Translations: [PAIN IN UNSPECIFIED HIP] Onset: 05-08-2022 Episodic Other screening for suspected conditions (not mental disorders or infectious disease) (8 sources) Other abnormal and inconclusive findings on diagnostic imaging of breast; Translations: [Encounter for screening mammogram for malignant neoplasm of breast] Onset: 12-30-2021 Episodic Phlebitis; thrombophlebitis and thromboembolism (4 sources) Personal history of other venous thrombosis and embolism; Translations: [H/O: Deep vein thrombosis] Onset: 06-26-2012 09-16-2020 Episodic Residual codes; unclassified (1 source) Edema of lower extremity Onset: 01-11-2021 02-12-2024 Episodic Residual codes; unclassified (1 source) Insomnia Onset: 01-11-2021 02-12-2024 Episodic Unclassified (1 source) LOW BACK PAIN, UNSPECIFIED; Translations: [LOW BACK PAIN, UNSPECIFIED] Onset: 10-27-2022 Results Test Name Value Interpretation Reference Range Facility Office Visiton 03-27-2024 Follow-up visit [id number] Loren Moser 1960 F Date Provider Department Center 03/27/2024 KasiBENJIE DANG YVONNE Barrios [facility] Family History Family history unknown: Yes Level of Service:16876 SC OFFICE/OUTPATIENT ESTABLISHED LOW MDM 20 MIN Normal [facility] Ambulatory Visit Summaryon 0 03-05-2024 Ambulatory Visit Summary Ambulatory Visit Summary MABEL MOSER :1960 Visit Date:03/05/2024 Ambulatory Visit Instructions Your Care Team Attending Physician - Migel MCKINNEY MD Primary Care Physician - Yuri Santana MD Referring Physician - Yuri Santana MD This Is Your Medications List APAP/butalbital/caffeine (Fioricet oral capsule) acetaminophen-oxycodone (Percocet 5 mg-325 mg oral tablet) alprazolam (alprazolam 0.5 mg Tab) amitriptyline (amitriptyline 150 mg Tab) apixaban (Eliquis 5 mg oral tablet) aspirin (aspirin 81 mg Chew Tab) atorvastatin (atorvastatin 40 mg Tab) bumetanide (bumetanide 2 mg Tab) butorphanol (butorphanol 10 mg/mL Nasal [place]) cyanocobalamin (cyanocobalamin 1000 mcg/mL Inj) desvenlafaxine (desvenlafaxine 50 mg Tab-) diclofenac topical (Voltaren Gel 1% Gel) doxepin (doxepin 10 mg Cap) ergocalciferol (Vitamin D 50,000 intl units (1.25 mg) oral capsule) escitalopram (Lexapro 20 mg Tab) fentanyl (Duragesic-100 transdermal film, extended release) fluticasone-vilanterol (Breo Ellipta 100 mcg-25 mcg inhalation powder) hydrALAZINE (hydrALAZINE 50 mg Tab) levothyroxine (levothyroxine 100 mcg (0.1 mg) Tab) linaclotide (Linzess 290 mcg oral capsule) liothyronine (Cytomel 25 mcg Tab) ondansetron (ondansetron 4 mg Dis Tab) pantoprazole (Protonix 40 mg Tab-DR) pramipexole (pramipexole 1 mg Tab) primidone (primidone 50 mg Tab) sacubitril-valsartan (Entresto 97 mg-103 mg oral tablet) spironolactone (spironolactone 100 mg Tab) tizanidine (tiZANidine 4 mg Tab) Procedures Performed Insertion of implantable venous access port (09/2022), Insertion of implantable venous access port (06/26/2016), Vikki-en-Y (06/26/1999), Cardiac catheterization, Cervical laminectomy, Cervical spinal fusion, Cholecystectomy, Knee replacement, Removal of implantable venous access port, Repair of rotator cuff of shoulder. Discharge Vitals Heart Rate (Peripheral) 77 Respiratory Rate 16 Blood Pressure 116/80 Height 157.4 cm Height 62 in Weight 94.5 kg Weight 207.9 lb BMI 38.14 Medications What How Much When Instructions Unchanged acetaminophen-oxycodone (Percocet 5 mg-325 mg oral tablet) 1 Tablets By Mouth Every 6 hours Unchanged alprazolam (alprazolam 0.5 mg Tab) 1 Tablets By Mouth 2 times a day as needed for for anxiety Unchanged amitriptyline (amitriptyline 150 mg Tab) 2 Tablets By Mouth Once a day (at bedtime) Unchanged APAP/ butalbital/ caffeine (Fioricet oral capsule) 1 Capsules By Mouth Every 4 hours as needed for Migraine headache Unchanged apixaban (Eliquis 5 mg oral tablet) 1 Tablets By Mouth 2 times a day Unchanged aspirin (aspirin 81 mg Chew Tab) 1 Tablets Chewed Every day Unchanged atorvastatin (atorvastatin 40 mg Tab) 1 Tablets By Mouth Every day Unchanged bumetanide (bumetanide 2 mg Tab) 1 Tablets By Mouth 2 times a day Unchanged butorphanol (butorphanol 10 mg/ mL Nasal [place]) 1 Sprays Nasal Inhalation Every day as needed for as needed for pain Unchanged cyanocobalamin (cyanocobalamin 1000 mcg/ mL Inj) 1,000 Microgram Intramuscular Once a month Unchanged desvenlafaxine (desvenlafaxine 50 mg Tab-) 1 Tablets By Mouth Every day Unchanged diclofenac topical (Voltaren Gel 1% Gel) 2 Gram Topical 2 times a day Unchanged doxepin (doxepin 10 mg Cap) 1-2 caps By Mouth Once a day (at bedtime) Unchanged ergocalciferol (Vitamin D 50,000 intl units (1.25 mg) oral capsule) 1 Capsules By Mouth Every week Unchanged escitalopram (Lexapro 20 mg Tab) 1 Tablets By Mouth Every day Unchanged fentanyl (Duragesic-100 transdermal film, extended release) 1 Patches Topical Every 72 hours Unchanged fluticasone-vilanterol (Breo Ellipta 100 mcg-25 mcg inhalation powder) 1 Puffs Inhalation Every day 30 dose unit Unchanged hydrALAZINE (hydrALAZINE 50 mg Tab) 1 Tablets By Mouth 3 times a day Unchanged levothyroxine (levothyroxine 100 mcg (0.1 mg) Tab) 1 Tablets By Mouth Every day Unchanged linaclotide (Linzess 290 mcg oral capsule) 1 Capsules By Mouth Every day Unchanged liothyronine (Cytomel 25 mcg Tab) 1 Tablets By Mouth Every day Unchanged ondansetron (ondansetron 4 mg Dis Tab) 1 Tablets By Mouth Every 6 hours as needed for Nausea/Vomiting Unchanged pantoprazole (Protonix 40 mg Tab-DR) 1 Tablets By Mouth Every day Unchanged pramipexole (pramipexole 1 mg Tab) 1 Tablets By Mouth Every day Unchanged primidone (primidone 50 mg Tab) 3 Tablets By Mouth Every day Unchanged sacubitril-valsartan (Entresto 97 mg-103 mg oral tablet) 1 Tablets By Mouth 2 times a day Unchanged spironolactone (spironolactone 100 mg Tab) 1 Tablets By Mouth 2 times a day Unchanged tizanidine (tiZANidine 4 mg Tab) 2 Tablets By Mouth Every 8 hours Allergies Augmentin (Hives) Betadine (Rash) sulfa drugs (Rash) Problems Ongoing - Any problem that you are currently receiving treatment for. Anemia Anxiety Aortic valve regurgitation Benign essential hypertension Bilate (more content not included)... Normal [facility] Magnesiumon 01-30-2024 Magnesium [Mass/Vol] 2.0 mg/dL Normal 1.6-2.4 [facility] Comment on above: Performed By: #### C OBIE CMPX #### [facility] [address] [place] [id number] [employer] Supervisor: Michael Chen MD CBC with Diffon 01-29-2024 Abs. Basophil 0.00 k/uL Normal 0.0-0.2 [facility] Comment on above: Performed By: #### C OBIE CMPX #### [facility] [address] [place] [id number] [employer] Supervisor: Michael Chen MD Abs.Imm.Granulocyte 0.09 k/uL Normal 0.00-0.30 [facility] Comment on above: Performed By: #### C OBIE CMPX #### [facility] [address] [place] [id number] [employer] Supervisor: Michael Chen MD Abs.Neutrophil (Seg) 6.87 k/uL Normal 1.8-7.7 [facility] Comment on above: Performed By: #### C DP, CMPX #### [address] [address] [employer] Supervisor: Michael Chen MD Basophils/100 WBC (Bld) 0 % Normal 0-2 [facility] Comment on above: Performed By: #### C DP, CMPX #### [address] [address] [employer] Supervisor: Michael Chen MD Eosinophils (Bld) [#/Vol] 0.26 10*3/uL Normal 0.0-0.4 [facility] Comment on above: Performed By: #### C DP, CMPX #### [address] [address] [employer] Supervisor: Michael Chen MD Eosinophils/100 WBC (Bld) 3 % Normal 1-4 [facility] Comment on above: Performed By: #### C DP, CMPX #### [address] [address] [employer] Supervisor: Michael Chen MD Immature granulocytes/100 WBC (Bld) 1 % High 0 [facility] Comment on above: Performed By: #### C DP, CMPX #### [address] [address] [employer] Supervisor: Michael Chen MD Lymphocytes (Bld) [#/Vol] 0.95 10*3/uL Low 1.0-4.8 [facility] Comment on above: Performed By: #### C DP, CMPX #### [address] [address] [employer] Supervisor: Michael Chen MD Lymphocytes/100 WBC (Bld) 11 % Low 24-44 [facility] Comment on above: Performed By: #### C DP, CMPX #### [address] [address] [employer] Supervisor: Michael Chen MD Monocytes (Bld) [#/Vol] 0.43 10*3/uL Normal 0.1-0.8 [facility] Comment on above: Performed By: #### C DP, CMPX #### [address] [address] [employer] Supervisor: Michael Chen MD Monocytes/100 WBC (Bld) 5 % Normal 1-7 [facility] Comment on above: Performed By: #### C DP, CMPX #### [place] [address] [employer] Supervisor: Michael Chen MD Morphology Pedro (Bld) [Interp] Normal Normal [facility] Comment on above: Performed By: #### C DP, CMPX #### [place] [address] [employer] Supervisor: Michael Chen MD Neutrophil (Seg) 80 % High 36-66 [facility] Comment on above: Performed By: #### C DP, CMPX #### [address] [address] [employer] Supervisor: Michael Chen MD Platelet, Fluoresc. 288 k/uL Normal 138-453 [facility] Comment on above: Performed By: #### C DP, CMPX #### [place] [address] [employer] Supervisor: Michael Chen MD PLT, Immature Fract. 1.5 % Normal 1.1-10.3 [facility] Comment on above: Performed By: #### C DP, CMPX #### [place] [address] [employer] Supervisor: Michael Chen MD Erythrocyte distribution width (RBC) [Ratio] 13.6 % Normal 11.8-14.4 [facility] Comment on above: Performed By: #### C DP, CMPX #### [address] [address] [employer] Supervisor: Michael Chen MD Hematocrit (Bld) [Volume fraction] 25.9 % Low 36.3-47.1 [facility] Comment on above: Performed By: #### C DP, CMPX #### [place] [address] [employer] Supervisor: Michael Chen MD Hemoglobin (Bld) [Mass/Vol] 7.8 g/dL Low 11.9-15.1 [facility] Comment on above: Performed By: #### C DP, CMPX #### [address] [address] [employer] Supervisor: Michael Chen MD MCH (RBC) [Entitic mass] 29.8 pg Normal 25.2-33.5 [facility] Comment on above: Performed By: #### C DP, CMPX #### [address] [address] [employer] Supervisor: Michael Chen MD MCHC (RBC) [Mass/Vol] 30.1 g/dL Normal 28.4-34.8 [facility] Comment on above: Performed By: #### C DP, CMPX #### [address] [address] [employer] Supervisor: Michael Chen MD MCV (RBC) [Entitic vol] 98.9 fL Normal 82.6-102.9 [facility] Comment on above: Performed By: #### C DP, CMPX #### [address] [address] [employer] Supervisor: Michael Chen MD NRBC Automated 0.0 per 100 WBC Normal 0.0 [facility] Comment on above: Performed By: #### C DP, CMPX #### [employer] [address] [place] [address] [employer] Super[employer]: Michael Chen MD Platelet Count See Reflexed IPF Result Normal 138-453 [facility] Comment on above: Performed By: #### C DP, CMPX #### [facility] [address] [place] [address] [employer] Super[employer]: Michael Chen MD RBC (Bld) [#/Vol] 2.62 10*6/uL Low 3.95-5.11 [facility] Comment on above: Performed By: #### C DP, CMPX #### [facility] [address] [place] [address] [employer] Super[employer]: Michael Chen MD WBC (Bld) [#/Vol] 8.6 10*3/uL Normal 3.5-11.3 [facility] Comment on above: Performed By: #### C DP, CMPX #### [facility] [address] [place] [address] [employer] Supervisor: Michael Chen MD CTA HEAD NECK W [...] Flavio Pierson MD 01/29/24 Final result Normal [facility] Comp Metabolic Pr/rfx MGon 0 01-29-2024 Albumin [Mass/Vol] 3.0 g/dL Low 3.5-5.2 [facility] Comment on above: Performed By: #### C DP, CMPX #### [facility] [place], [place] [id number] [employer] Super[employer]: Michael Chen MD Albumin/Glob Ratio 1.0 Normal 1.0-2.5 [facility] Comment on above: Performed By: #### C DP, CMPX #### [facility] [address] [place], [place] [id number] [employer] Supervisor: Michael Chen MD Alkaline Phos 205 U/L High 35-104 [facility] Comment on above: Performed By: #### C DP, CMPX #### [address] [address] [employer] Supervisor: Michael Chen MD ALT [Catalytic activity/Vol] U/L Low 10-35 [facility] Comment on above: Performed By: #### C DP, CMPX #### [address] [address] [employer] Supervisor: Michael Chen MD Anion gap [Moles/Vol] 11 mmol/L Normal 9-16 [facility] Comment on above: Performed By: #### C DP, CMPX #### [address] [address] [employer] Supervisor: Michael Chen MD AST [Catalytic activity/Vol] 27 U/L Normal 10-35 [facility] Comment on above: Performed By: #### C DP, CMPX #### [address] [address] [employer] Supervisor: Michael Chen MD Bilirubin [Mass/Vol] 0.2 mg/dL Normal 0.00-1.20 [facility] Comment on above: Performed By: #### C DP, CMPX #### [address] [address] [employer] Supervisor: Michael Chen MD Calcium [Mass/Vol] 8.0 mg/dL Low 8.6-10.4 [facility] Comment on above: Performed By: #### C DP, CMPX #### [address] [address] [employer] Supervisor: Michael Chen MD Chloride [Moles/Vol] 101 mmol/L Normal 98-107 [facility] Comment on above: Performed By: #### C DP, CMPX #### [address] [address] [employer] Supervisor: Michael Chen MD CO2 [Moles/Vol] 19 mmol/L Low 20-31 [facility] Comment on above: Performed By: #### C DP, CMPX #### [address] [address] [employer] Supervisor: Michael Chen MD Creatinine [Mass/Vol] 1.6 mg/dL High 0.50-0.90 [facility] Comment on above: Performed By: #### C DP, CMPX #### [address] [address] [employer] Supervisor: Michael Chen MD GFR/1.73 sq M.predicted among non-blacks MDRD (S/P/Bld) [Vol rate/Area] 38 mL/min/{1.73_m2} Low >60 [facility] Comment on above: Result Comment: These results [...] tubular secretion. Performed By: #### C DP, CMPX #### [address] [address] [employer] Supervisor: Michael Chen MD Glucose [Mass/Vol] 90 mg/dL Normal 74-99 [facility] Comment on above: Performed By: #### C DP, CMPX #### [address] [address] [employer] Supervisor: Michael Chen MD Potassium [Moles/Vol] 4.4 mmol/L Normal 3.7-5.3 [facility] Comment on above: Performed By: #### C DP, CMPX #### [address] [address] [employer] Supervisor: Michael Chen MD Protein [Mass/Vol] 5.4 g/dL Low 6.6-8.7 [facility] Comment on above: Performed By: #### C DP, CMPX #### [address] [address] [employer] Supervisor: Michael Chen MD Sodium [Moles/Vol] 131 mmol/L Low 136-145 [facility] Comment on above: Performed By: #### C DP, CMPX #### [address] [address] [employer] Supervisor: Michael Chen MD Urea nitrogen [Mass/Vol] 46 mg/dL High 8-23 [facility] Comment on above: Performed By: #### C DP, CMPX #### [address] [address] [employer] Supervisor: Michael Chen MD Magnesiumon 01-29-2024 Magnesium [Mass/Vol] 2.1 mg/dL Normal 1.6-2.4 [facility] Comment on above: Performed By: #### M G #### [address] [address] [employer] Supervisor: Michael Chen MD Basic Metab w/rfx MGon 01-27 Anion gap [Moles/Vol] 10 mmol/L Normal 9-16 [facility] Comment on above: Performed By: #### C DP, CMPX #### [address] [address] [employer] Supervisor: Michael Chen MD Calcium [Mass/Vol] 7.5 mg/dL Low 8.6-10.4 [facility] Comment on above: Performed By: #### C DP, CMPX #### [facility] [employer] [address] [place] [address] [employer] Supervisor: Michael Chen MD Chloride [Moles/Vol] 101 mmol/L Normal 98-107 [facility] Comment on above: Performed By: #### C DP, CMPX #### [address] [address] [employer] Supervisor: Michael Chen MD CO2 [Moles/Vol] 22 mmol/L Normal 20-31 [facility] Comment on above: Performed By: #### C DP, CMPX #### [facility] [address] [place] [address] [employer] Supervisor: Michael Chen MD Creatinine [Mass/Vol] 1.8 mg/dL High 0.50-0.90 [facility] Comment on above: Performed By: #### C DP, CMPX #### [address] [address] [employer] Supervisor: Michael Chen MD GFR/1.73 sq M.predicted among non-blacks MDRD (S/P/Bld) [Vol rate/Area] 33 mL/min/{1.73_m2} Low >60 [facility] Comment on above: Result Comment: These results [...] tubular secretion. Performed By: #### C DP, CMPX #### [address] [address] [employer] Supervisor: Michael Chen MD Glucose [Mass/Vol] 92 mg/dL Normal 74-99 [facility] Comment on above: Performed By: #### C DP, CMPX #### [address] [address] [employer] Supervisor: Michael Chen MD Potassium [Moles/Vol] 4.6 mmol/L Normal 3.7-5.3 [facility] Comment on above: Performed By: #### C DP, CMPX #### [address] [address] [employer] Supervisor: Michael Chen MD Sodium [Moles/Vol] 133 mmol/L Low 136-145 [facility] Comment on above: Performed By: #### C DP, CMPX #### [place] [address] [employer] Supervisor: Michael Chen MD Urea nitrogen [Mass/Vol] 46 mg/dL High 8-23 [facility] Comment on above: Performed By: #### C DP, CMPX #### [place] [address] [employer] Supervisor: Michael Chen MD CBC with Diffon 01-28-2024 Abs. Basophil <0.03 Normal 0.00-0.20 [facility] Comment on above: Performed By: #### C DP, CMPX #### [place] [address] [employer] Supervisor: Michael Chen MD Abs.Imm.Granulocyte 0.13 k/uL Normal 0.00-0.30 [facility] Comment on above: Performed By: #### C DP, CMPX #### [place] [address] [employer] Supervisor: Michael Chen MD Abs.Neutrophil (Seg) 4.37 k/uL Normal 1.50-8.10 [facility] Comment on above: Performed By: #### C DP, CMPX #### [address] [address] [employer] Supervisor: Mcihael Chen MD Basophils/100 WBC (Bld) 0 % Normal 0-2 [facility] Comment on above: Performed By: #### C DP, CMPX #### [address] [address] [employer] Supervisor: Michael Chen MD Eosinophils (Bld) [#/Vol] 0.25 10*3/uL Normal 0.00-0.44 [facility] Comment on above: Performed By: #### C DP, CMPX #### [place] [address] [employer] Supervisor: Michael Chen MD Eosinophils/100 WBC (Bld) 4 % Normal 1-4 [facility] Comment on above: Performed By: #### C DP, CMPX #### [address] [address] [employer] Supervisor: Michael Chen MD Immature granulocytes/100 WBC (Bld) 2 % High 0 [facility] Comment on above: Performed By: #### C DP, CMPX #### [address] [address] [employer] Supervisor: Michael Chen MD Lymphocytes (Bld) [#/Vol] 1.15 10*3/uL Normal 1.10-3.70 [facility] Comment on above: Performed By: #### C DP, CMPX #### [place] [address] [employer] Supervisor: Michael Chen MD Lymphocytes/100 WBC (Bld) 18 % Low 24-43 [facility] Comment on above: Performed By: #### C DP, CMPX #### [place] [address] [employer] Supervisor: Michael Chen MD Monocytes (Bld) [#/Vol] 0.59 10*3/uL Normal 0.10-1.20 [facility] Comment on above: Performed By: #### C DP, CMPX #### [address] [address] [employer] Supervisor: Michael Chen MD Monocytes/100 WBC (Bld) 9 % Normal 3-12 [facility] Comment on above: Performed By: #### C DP, CMPX #### [address] [address] [employer] Supervisor: Michael Chen MD Neutrophil (Seg) 67 % High 36-65 [facility] Comment on above: Performed By: #### C DP, CMPX #### [address] [address] [employer] Supervisor: Michael Chen MD Erythrocyte distribution width (RBC) [Ratio] 13.6 % Normal 11.8-14.4 [facility] Comment on above: Performed By: #### C DP, CMPX #### [address] [address] [employer] Supervisor: Michael Chen MD Hematocrit (Bld) [Volume fraction] 24.0 % Low 36.3-47.1 [facility] Comment on above: Performed By: #### C DP, CMPX #### [address] [address] [employer] Supervisor: Michael Chen MD Hemoglobin (Bld) [Mass/Vol] 7.1 g/dL Low 11.9-15.1 [facility] Comment on above: Performed By: #### C DP, CMPX #### [address] [address] [employer] Supervisor: Michael Chen MD MCH (RBC) [Entitic mass] 29.6 pg Normal 25.2-33.5 [facility] Comment on above: Performed By: #### C DP, CMPX #### [address] [address] [employer] Supervisor: Michael Chen MD MCHC (RBC) [Mass/Vol] 29.6 g/dL Normal 28.4-34.8 [facility] Comment on above: Performed By: #### C DP, CMPX #### [address] [address] [employer] Supervisor: Michael Chen MD MCV (RBC) [Entitic vol] 100.0 fL Normal 82.6-102.9 [facility] Comment on above: Performed By: #### C DP, CMPX #### [address] [address] [employer] Supervisor: Michael Chen MD NRBC Automated 0.0 per 100 WBC Normal 0.0 [facility] Comment on above: Performed By: #### C DP, CMPX #### [address] [address] [employer] Supervisor: Michael Chen MD Platelet mean volume (Bld) [Entitic vol] 9.2 fL Normal 8.1-13.5 [facility] Comment on above: Performed By: #### C DP, CMPX #### [address] [address] [employer] Supervisor: Michael Chen MD Platelets (Bld) [#/Vol] 222 10*3/uL Normal 138-453 [facility] Comment on above: Performed By: #### C DP, CMPX #### [address] [address] [employer] Supervisor: Michael Chen MD RBC (Bld) [#/Vol] 2.40 10*6/uL Low 3.95-5.11 [facility] Comment on above: Performed By: #### C DP, CMPX #### [address] [address] [employer] Supervisor: Michael Chen MD WBC (Bld) [#/Vol] 6.5 10*3/uL Normal 3.5-11.3 [facility] Comment on above: Performed By: #### C DP, CMPX #### [facility] [employer] [address] [place] [address] [employer] Super[employer]: Michael Chen MD Magnesiumon 01-28-2024 Magnesium [Mass/Vol] 1.6 mg/dL Normal 1.6-2.4 [facility] Comment on above: Performed By: #### C DP, CMPX #### [facility] [employer] [address] [place] [address] [employer] Supervisor: Michael Chen MD Basic Metab w/rfx MGon 01-26 Anion gap [Moles/Vol] 11 mmol/L Normal 9-16 [facility] Comment on above: Performed By: #### C DP, CMPX #### [address] [address] [employer] Supervisor: Michael Chen MD Calcium [Mass/Vol] 7.4 mg/dL Low 8.6-10.4 [facility] Comment on above: Performed By: #### C DP, CMPX #### [address] [address] [employer] Supervisor: Michael Chen MD Chloride [Moles/Vol] 102 mmol/L Normal 98-107 [facility] Comment on above: Performed By: #### C DP, CMPX #### [facility] [employer] [address] [place] [address] [employer] Supervisor: Michael Chen MD CO2 [Moles/Vol] 21 mmol/L Normal 20-31 [facility] Comment on above: Performed By: #### C DP, CMPX #### [facility] [employer] [address] [place] [address] [employer] Supervisor: Michael Chen MD Creatinine [Mass/Vol] 1.6 mg/dL High 0.50-0.90 [facility] Comment on above: Performed By: #### C DP, CMPX #### [facility] [employer] [address] [place] [address] [employer] Supervisor: Michael Chen MD GFR/1.73 sq M.predicted among non-blacks MDRD (S/P/Bld) [Vol rate/Area] 36 mL/min/{1.73_m2} Low >60 [facility] Comment on above: Result Comment: These results [...] tubular secretion. Performed By: #### C DP, CMPX #### [facility] [address] [place] [address] [employer]: Michael Chen MD Glucose [Mass/Vol] 169 mg/dL High 74-99 [facility] Comment on above: Performed By: #### C DP, CMPX #### [facility] [employer] [address] [place] [address] [employer] Super[employer]: Michael Chen MD Potassium [Moles/Vol] 4.4 mmol/L Normal 3.7-5.3 [facility] Comment on above: Performed By: #### C DP, CMPX #### [facility] [address] [place] [address] [employer] Supervisor: Michael Chen MD Sodium [Moles/Vol] 134 mmol/L Low 136-145 [facility] Comment on above: Performed By: #### C DP, CMPX #### [facility] [address] [place] [address] [employer] Supervisor: Michael Chen MD Urea nitrogen [Mass/Vol] 42 mg/dL High 8-23 [facility] Comment on above: Performed By: #### C DP, CMPX #### [place] [address] [employer] Supervisor: Michael Chen MD CBC with Diffon 01-27-2024 Abs. Basophil <0.03 Normal 0.00-0.20 [facility] Comment on above: Performed By: #### C DP, CMPX #### [facility] [employer] [address] [place] [address] [employer] Super[employer]: Michael Chen MD Abs.Imm.Granulocyte 0.06 k/uL Normal 0.00-0.30 [facility] Comment on above: Performed By: #### C DP, CMPX #### [facility] [employer] [address] [place] [address] [employer] Supervisor: Michael Chen MD Abs.Neutrophil (Seg) 5.93 k/uL Normal 1.50-8.10 [facility] Comment on above: Performed By: #### C DP, CMPX #### [place] [address] [employer] Supervisor: Michael Chen MD Basophils/100 WBC (Bld) 0 % Normal 0-2 [facility] Comment on above: Performed By: #### C DP, CMPX #### [place] [address] [employer] Supervisor: Michael Chen MD Eosinophils (Bld) [#/Vol] 0.17 10*3/uL Normal 0.00-0.44 [facility] Comment on above: Performed By: #### C DP, CMPX #### [facility] [employer] [address] [place] [address] [employer] Supervisor: Michael Chen MD Eosinophils/100 WBC (Bld) 2 % Normal 1-4 [facility] Comment on above: Performed By: #### C DP, CMPX #### [address] [address] [employer] Supervisor: Michael Chen MD Erythrocyte distribution width (RBC) [Ratio] 13.8 % Normal 11.8-14.4 [facility] Comment on above: Performed By: #### C DP, CMPX #### [address] [address] [employer] Supervisor: Michael Chen MD Hematocrit (Bld) [Volume fraction] 26.3 % Low 36.3-47.1 [facility] Comment on above: Performed By: #### C DP, CMPX #### [address] [address] [employer] Supervisor: Michael Chen MD Hemoglobin (Bld) [Mass/Vol] 7.8 g/dL Low 11.9-15.1 [facility] Comment on above: Performed By: #### C DP, CMPX #### [address] [address] [employer] Supervisor: Michael Chen MD Immature granulocytes/100 WBC (Bld) 1 % High 0 [facility] Comment on above: Performed By: #### C DP, CMPX #### [address] [address] [employer] Supervisor: Michael Chen MD Lymphocytes (Bld) [#/Vol] 0.79 10*3/uL Low 1.10-3.70 [facility] Comment on above: Performed By: #### C DP, CMPX #### [address] [address] [employer] Supervisor: Michael Chen MD Lymphocytes/100 WBC (Bld) 11 % Low 24-43 [facility] Comment on above: Performed By: #### C DP, CMPX #### [facility] [employer] [address] [place] [address] [employer] Supervisor: Michael Chen MD MCH (RBC) [Entitic mass] 29.8 pg Normal 25.2-33.5 [facility] Comment on above: Performed By: #### C DP, CMPX #### [address] [address] [employer] Supervisor: Michael Chen MD MCHC (RBC) [Mass/Vol] 29.7 g/dL Normal 28.4-34.8 [facility] Comment on above: Performed By: #### C DP, CMPX #### [address] [address] [employer] Supervisor: Michael Chen MD MCV (RBC) [Entitic vol] 100.4 fL Normal 82.6-102.9 [facility] Comment on above: Performed By: #### C DP, CMPX #### [address] [address] [employer] Supervisor: Michael Chen MD Monocytes (Bld) [#/Vol] 0.38 10*3/uL Normal 0.10-1.20 [facility] Comment on above: Performed By: #### C DP, CMPX #### [address] [address] [employer] Supervisor: Michael Chen MD Monocytes/100 WBC (Bld) 5 % Normal 3-12 [facility] Comment on above: Performed By: #### C DP, CMPX #### [address] [address] [employer] Supervisor: Michael Chen MD Neutrophil (Seg) 81 % High 36-65 [facility] Comment on above: Performed By: #### C DP, CMPX #### [address] [address] [employer] Supervisor: Michael Chen MD NRBC Automated 0.0 per 100 WBC Normal 0.0 [facility] Comment on above: Performed By: #### C DP, CMPX #### [address] [address] [employer] Super[employer]: Michael Chen MD Platelet mean volume (Bld) [Entitic vol] 9.6 fL Normal 8.1-13.5 [facility] Comment on above: Performed By: #### C DP, CMPX #### [address] [address] [employer] Supervisor: Michael Chen MD Platelets (Bld) [#/Vol] 239 10*3/uL Normal 138-453 [facility] Comment on above: Performed By: #### C DP, CMPX #### [address] [address] [employer] Supervisor: Michael Chen MD RBC (Bld) [#/Vol] 2.62 10*6/uL Low 3.95-5.11 [facility] Comment on above: Performed By: #### C DP, CMPX #### [address] [address] [employer] Super[employer]: Michael Chen MD WBC (Bld) [#/Vol] 7.3 10*3/uL Normal 3.5-11.3 [facility] Comment on above: Performed By: #### C DP, CMPX #### [address] [address] [employer] Supervisor: Michael Chen MD CT CERVICAL SPINE WO [...] Alex Hickman MD 01/27/24 Final result Normal [facility] Basic Metab w/rfx MGon 01-25 Anion gap [Moles/Vol] 8 mmol/L Low 9-16 [facility] Comment on above: Performed By: #### B MPX, CDP #### [facility] [place] [address] [employer] Super[employer]: Michael Chen MD Calcium [Mass/Vol] 7.8 mg/dL Low 8.6-10.4 [facility] Comment on above: Performed By: #### B MPX, CDP #### [facility] [address] [place] [address] [employer] Super[employer]: Michael Chen MD Chloride [Moles/Vol] 104 mmol/L Normal 98-107 [facility] Comment on above: Performed By: #### B MPX, CDP #### [facility] [address] [place] [address] [employer] Super[employer]: Michael Chen MD CO2 [Moles/Vol] 23 mmol/L Normal 20-31 [facility] Comment on above: Performed By: #### B MPX, CDP #### [facility] [address] [place] [address] [employer] Super[employer]: Michael Chen MD Creatinine [Mass/Vol] 1.6 mg/dL High 0.50-0.90 [facility] Comment on above: Performed By: #### B MPX, CDP #### [facility] [employer] [address] [place] [address] [employer] Supervisor: Micheal Chen MD GFR/1.73 sq M.predicted among non-blacks MDRD (S/P/Bld) [Vol rate/Area] 38 mL/min/{1.73_m2} Low >60 [facility] Comment on above: Result Comment: These results [...] Performed By: #### B MPX, CDP #### [facility] [place] [address] [employer] Supervisor: Michael Chen MD Glucose [Mass/Vol] 109 mg/dL High 74-99 [facility] Comment on above: Performed By: #### B MPX, CDP #### [facility] [address] [place] [address] [employer] Supervisor: Michael Chen MD Potassium [Moles/Vol] 5.3 mmol/L Normal 3.7-5.3 [facility] Comment on above: Performed By: #### B MPX, CDP #### [facility] [address] [place] [address] [employer] Supervisor: Michael Chen MD Sodium [Moles/Vol] 135 mmol/L Low 136-145 [facility] Comment on above: Performed By: #### B MPX, CDP #### [facility] [address] [place] [address] [employer] Supervisor: Michael Chen MD Urea nitrogen [Mass/Vol] 40 mg/dL High 8-23 [facility] Comment on above: Performed By: #### B MPX, CDP #### [facility] [address] [place] [address] [employer] Supervisor: Michael Chen MD Anion gap [Moles/Vol] 11 mmol/L Normal 9-16 [facility] Comment on above: Performed By: #### B MPX, CDP #### [facility] [address] [place] [address] [employer] Supervisor: Michael Chen MD Calcium [Mass/Vol] 7.6 mg/dL Low 8.6-10.4 [facility] Comment on above: Performed By: #### B MPX, CDP #### [facility] [address] [place] [address] [employer] Supervisor: Michael Chen MD Chloride [Moles/Vol] 102 mmol/L Normal 98-107 [facility] Comment on above: Performed By: #### B MPX, CDP #### [facility] [address] [place] [address] [employer] Supervisor: Michael Chen MD CO2 [Moles/Vol] 20 mmol/L Normal 20-31 [facility] Comment on above: Performed By: #### B MPX, CDP #### [facility] [address] [place] [address] [employer] Supervisor: Michael Chen MD Creatinine [Mass/Vol] 1.7 mg/dL High 0.50-0.90 [facility] Comment on above: Performed By: #### B MPX, CDP #### [address] [address] [employer] Supervisor: Michael Chen MD GFR/1.73 sq M.predicted among non-blacks MDRD (S/P/Bld) [Vol rate/Area] 35 mL/min/{1.73_m2} Low >60 [facility] Comment on above: Result Comment: These results [...] Performed By: #### B MPX, CDP #### [facility] [employer] [address] [place] [address] [employer] Supervisor: Michael Cehn MD Glucose [Mass/Vol] 106 mg/dL High 74-99 [facility] Comment on above: Performed By: #### B MPX, CDP #### [facility] [address] [place] [address] [employer] Supervisor: Michael Chen MD Potassium [Moles/Vol] 5.0 mmol/L Normal 3.7-5.3 [facility] Comment on above: Performed By: #### B MPX, CDP #### [facility] [employer] [address] [place] [address] [employer] Supervisor: Michael Chen MD Sodium [Moles/Vol] 133 mmol/L Low 136-145 [facility] Comment on above: Performed By: #### B MPX, CDP #### [facility] [employer] [address] [place] [address] [employer] Supervisor: Michael Chen MD Urea nitrogen [Mass/Vol] 46 mg/dL High 8-23 [facility] Comment on above: Performed By: #### B MPX, CDP #### [facility] [employer] [address] [place] [address] [employer] Supervisor: Michael Chen MD CBC with Diffon 01-26-2024 Abs. Basophil <0.03 Normal 0.00-0.20 [facility] Comment on above: Performed By: #### B MPX, CDP #### [place] [address] [employer] Supervisor: Michael Chen MD Abs.Imm.Granulocyte 0.13 k/uL Normal 0.00-0.30 [facility] Comment on above: Performed By: #### B MPX, CDP #### [place] [address] [employer] Supervisor: Michael Chen MD Abs.Neutrophil (Seg) 8.21 k/uL High 1.50-8.10 [facility] Comment on above: Performed By: #### B MPX, CDP #### [facility] [employer] [address] [place] [address] [employer] Supervisor: Michael Chen MD Basophils/100 WBC (Bld) 0 % Normal 0-2 [facility] Comment on above: Performed By: #### B MPX, CDP #### [address] [address] [employer] Supervisor: Michael Chen MD Eosinophils (Bld) [#/Vol] 0.19 10*3/uL Normal 0.00-0.44 [facility] Comment on above: Performed By: #### B MPX, CDP #### [facility] [employer] [address] [place] [address] [employer] Supervisor: Michael Chen MD Eosinophils/100 WBC (Bld) 2 % Normal 1-4 [facility] Comment on above: Performed By: #### B MPX, CDP #### [facility] [employer] [address] [place] [address] [employer] Supervisor: Michael Chen MD Erythrocyte distribution width (RBC) [Ratio] 13.9 % Normal 11.8-14.4 [facility] Comment on above: Performed By: #### B MPX, CDP #### [facility] [employer] [address] [place] [address] [employer] Supervisor: Michael Chen MD Hematocrit (Bld) [Volume fraction] 28.3 % Low 36.3-47.1 [facility] Comment on above: Performed By: #### B MPX, CDP #### [facility] [employer] [address] [place] [address] [employer] Supervisor: Michael Chen MD Hemoglobin (Bld) [Mass/Vol] 8.6 g/dL Low 11.9-15.1 [facility] Comment on above: Performed By: #### B MPX, CDP #### [facility] [employer] [address] [place] [address] [employer] Supervisor: Michael Chen MD Immature granulocytes/100 WBC (Bld) 1 % High 0 [facility] Comment on above: Performed By: #### B MPX, CDP #### [facility] [employer] [address] [place] [address] [employer] Supervisor: Michael Chen MD Lymphocytes (Bld) [#/Vol] 1.09 10*3/uL Low 1.10-3.70 [facility] Comment on above: Performed By: #### B MPX, CDP #### [address] [address] [employer] Supervisor: Michael Chen MD Lymphocytes/100 WBC (Bld) 10 % Low 24-43 [facility] Comment on above: Performed By: #### B MPX, CDP #### [address] [address] [employer] Supervisor: Michael Chen MD MCH (RBC) [Entitic mass] 29.5 pg Normal 25.2-33.5 [facility] Comment on above: Performed By: #### B MPX, CDP #### [address] [address] [employer] Supervisor: Michael Chen MD MCHC (RBC) [Mass/Vol] 30.4 g/dL Normal 28.4-34.8 [facility] Comment on above: Performed By: #### B MPX, CDP #### [address] [address] [employer] Supervisor: Michael Chen MD MCV (RBC) [Entitic vol] 96.9 fL Normal 82.6-102.9 [facility] Comment on above: Performed By: #### B MPX, CDP #### [address] [address] [employer] Supervisor: Michael Chen MD Monocytes (Bld) [#/Vol] 0.85 10*3/uL Normal 0.10-1.20 [facility] Comment on above: Performed By: #### B MPX, CDP #### [address] [address] [employer] Supervisor: Michael Chen MD Monocytes/100 WBC (Bld) 8 % Normal 3-12 [facility] Comment on above: Performed By: #### B MPX, CDP #### [address] [address] [employer] Supervisor: Michael Chen MD Neutrophil (Seg) 79 % High 36-65 [facility] Comment on above: Performed By: #### B MPX, CDP #### [address] [address] [employer] Supervisor: Michael Chen MD NRBC Automated 0.0 per 100 WBC Normal 0.0 [facility] Comment on above: Performed By: #### B MPX, CDP #### [address] [address] [employer] Supervisor: Michael Chen MD Platelet mean volume (Bld) [Entitic vol] 9.7 fL Normal 8.1-13.5 [facility] Comment on above: Performed By: #### B MPX, CDP #### [address] [address] [employer] Supervisor: Michael Chen MD Platelets (Bld) [#/Vol] 270 10*3/uL Normal 138-453 [facility] Comment on above: Performed By: #### B MPX, CDP #### [address] [address] [employer] Supervisor: Michael Chen MD RBC (Bld) [#/Vol] 2.92 10*6/uL Low 3.95-5.11 [facility] Comment on above: Performed By: #### B MPX, CDP #### [address] [address] [employer] Supervisor: Michael Chen MD WBC (Bld) [#/Vol] 10.5 10*3/uL Normal 3.5-11.3 [facility] Comment on above: Performed By: #### B MPX, CDP #### [facility] [employer] [address] [place] [address] [employer] Supervisor: Michael Chen MD Abs. Basophil 0.03 k/uL Normal 0.00-0.20 [facility] Comment on above: Performed By: #### B MPX, CDP #### [facility] [employer] [address] [place] [address] [employer] Supervisor: Michael Chen MD Abs.Imm.Granulocyte 0.08 k/uL Normal 0.00-0.30 [facility] Comment on above: Performed By: #### B MPX, CDP #### [facility] [address] [place] [address] [employer] Supervisor: Michael Chen MD Abs.Neutrophil (Seg) 12.75 k/uL High 1.50-8.10 [facility] Comment on above: Performed By: #### B MPX, CDP #### [facility] [employer] [address] [place] [address] [employer] Supervisor: Michael Chen MD Basophils/100 WBC (Bld) 0 % Normal 0-2 [facility] Comment on above: Performed By: #### B MPX, CDP #### [facility] [employer] [address] [place] [address] [employer] Supervisor: Michael Chen MD Eosinophils (Bld) [#/Vol] 0.16 10*3/uL Normal 0.00-0.44 [facility] Comment on above: Performed By: #### B MPX, CDP #### [facility] [employer] [address] [place] [address] [employer] Supervisor: Michael Chen MD Eosinophils/100 WBC (Bld) 1 % Normal 1-4 [facility] Comment on above: Performed By: #### B MPX, CDP #### [employer] [address] [place] [address] [employer] Supervisor: Michael Chen MD Erythrocyte distribution width (RBC) [Ratio] 13.7 % Normal 11.8-14.4 [facility] Comment on above: Performed By: #### B MPX, CDP #### [facility] [employer] [address] [place] [address] [employer] Supervisor: Michael Chen MD Hematocrit (Bld) [Volume fraction] 28.8 % Low 36.3-47.1 [facility] Comment on above: Performed By: #### B MPX, CDP #### [facility] [employer] [address] [place] [address] [employer] Supervisor: Michael Chen MD Hemoglobin (Bld) [Mass/Vol] 8.8 g/dL Low 11.9-15.1 [facility] Comment on above: Performed By: #### B MPX, CDP #### [facility] [employer] [address] [place] [address] [employer] Supervisor: Michael Chen MD Immature granulocytes/100 WBC (Bld) 1 % High 0 [facility] Comment on above: Performed By: #### B MPX, CDP #### [facility] [employer] [address] [place] [address] [employer] Supervisor: Michael Chen MD Lymphocytes (Bld) [#/Vol] 1.15 10*3/uL Normal 1.10-3.70 [facility] Comment on above: Performed By: #### B MPX, CDP #### [facility] [employer] [address] [place] [address] [employer] Supervisor: Michael Chen MD Lymphocytes/100 WBC (Bld) 8 % Low 24-43 [facility] Comment on above: Performed By: #### B MPX, CDP #### [facility] [employer] [address] [place] [address] [employer] Supervisor: Michael Chen MD MCH (RBC) [Entitic mass] 29.6 pg Normal 25.2-33.5 [facility] Comment on above: Performed By: #### B MPX, CDP #### [facility] [address] [place] [address] [employer] Supervisor: Michael Chen MD MCHC (RBC) [Mass/Vol] 30.6 g/dL Normal 28.4-34.8 [facility] Comment on above: Performed By: #### B MPX, CDP #### [address] [address] [employer] Supervisor: Michael Chen MD MCV (RBC) [Entitic vol] 97.0 fL Normal 82.6-102.9 [facility] Comment on above: Performed By: #### B MPX, CDP #### [address] [address] [employer] Supervisor: Michael Chen MD Monocytes (Bld) [#/Vol] 0.77 10*3/uL Normal 0.10-1.20 [facility] Comment on above: Performed By: #### B MPX, CDP #### [address] [address] [employer] Supervisor: Michael Chen MD Monocytes/100 WBC (Bld) 5 % Normal 3-12 [facility] Comment on above: Performed By: #### B MPX, CDP #### [address] [address] [employer] Supervisor: Michael Chen MD Neutrophil (Seg) 85 % High 36-65 [facility] Comment on above: Performed By: #### B MPX, CDP #### [address] [address] [employer] Supervisor: Michael Chen MD NRBC Automated 0.0 per 100 WBC Normal 0.0 [facility] Comment on above: Performed By: #### B MPX, CDP #### [address] [address] [employer] Supervisor: Michael Chen MD Platelet mean volume (Bld) [Entitic vol] 9.1 fL Normal 8.1-13.5 [facility] Comment on above: Performed By: #### B MPX, CDP #### [address] [address] [employer] Supervisor: Michael Chen MD Platelets (Bld) [#/Vol] 269 10*3/uL Normal 138-453 [facility] Comment on above: Performed By: #### B MPX, CDP #### [address] [address] [employer] Supervisor: Michael Chen MD RBC (Bld) [#/Vol] 2.97 10*6/uL Low 3.95-5.11 [facility] Comment on above: Performed By: #### B MPX, CDP #### [address] [address] [employer] Supervisor: Michael Chen MD WBC (Bld) [#/Vol] 14.9 10*3/uL High 3.5-11.3 [facility] Comment on above: Performed By: #### B MPX, CDP #### [address] [address] [employer] Supervisor: Michael Chen MD Cult,Urineon 01-26-2024 Cult,Urine Specimen Description .INDWELLING CATH URINE Special Requests FIRST INSERTION Culture NO GROWTH Report Status FINAL 01/26/2024 Normal [facility] Comment on above: Performed By: #### U RC #### [address] [address] [employer] Supervisor: Michael Chen MD XR CERVICAL SPINE (2-3 [...] DO 01/26/24 Edited Result - FINAL Normal [facility] Basic Metab w/rfx MGon 01-24 Anion gap [Moles/Vol] 9 mmol/L Normal 9-16 [facility] Comment on above: Performed By: #### C DP, BMPX #### [facility] [address] [place] [address] [employer] Supervisor: Michael Chen MD Calcium [Mass/Vol] 7.9 mg/dL Low 8.6-10.4 [facility] Comment on above: Performed By: #### C DP, BMPX #### [employer] [address] [place] [address] [employer] Supervisor: Michael Chen MD Chloride [Moles/Vol] 105 mmol/L Normal 98-107 [facility] Comment on above: Performed By: #### C DP, BMPX #### [facility] [address] [place] [address] [employer] Supervisor: Michael Chen MD CO2 [Moles/Vol] 22 mmol/L Normal 20-31 [facility] Comment on above: Performed By: #### C DP, BMPX #### [address] [address] [employer] Supervisor: Michael Chen MD Creatinine [Mass/Vol] 1.7 mg/dL High 0.50-0.90 [facility] Comment on above: Performed By: #### C DP, BMPX #### [address] [address] [employer] Supervisor: Michael Chen MD GFR/1.73 sq M.predicted among non-blacks MDRD (S/P/Bld) [Vol rate/Area] 33 mL/min/{1.73_m2} Low >60 [facility] Comment on above: Result Comment: These results [...] By: #### C DP, BMPX #### [address] [address] [employer] Supervisor: Michael Chen MD Glucose [Mass/Vol] 104 mg/dL High 74-99 [facility] Comment on above: Performed By: #### C DP, BMPX #### [address] [address] [employer] Supervisor: Michael Chen MD Potassium [Moles/Vol] 5.1 mmol/L Normal 3.7-5.3 [facility] Comment on above: Performed By: #### C DP, BMPX #### [facility] [employer] [address] [place] [address] [employer] Supervisor: Michael Chen MD Sodium [Moles/Vol] 136 mmol/L Normal 136-145 [facility] Comment on above: Performed By: #### C DP, BMPX #### [address] [address] [employer] Supervisor: Michael Chen MD Urea nitrogen [Mass/Vol] 51 mg/dL High 8-23 [facility] Comment on above: Performed By: #### C DP, BMPX #### [address] [address] [employer] Super[employer]: Michael Chen MD CBC with Diffon 01-25-2024 Abs. Basophil <0.03 Normal 0.00-0.20 [facility] Comment on above: Performed By: #### C DP, BMPX #### [address] [address] [employer] Supervisor: Michael Chen MD Abs.Imm.Granulocyte 0.03 k/uL Normal 0.00-0.30 [facility] Comment on above: Performed By: #### C DP, BMPX #### [address] [address] [employer] Supervisor: Michael Chen MD Abs.Neutrophil (Seg) 3.64 k/uL Normal 1.50-8.10 [facility] Comment on above: Performed By: #### C DP, BMPX #### [address] [address] [employer] Supervisor: Michael Chen MD Basophils/100 WBC (Bld) 0 % Normal 0-2 [facility] Comment on above: Performed By: #### C DP, BMPX #### [address] [address] [employer] Supervisor: Michael Chen MD Eosinophils (Bld) [#/Vol] 0.23 10*3/uL Normal 0.00-0.44 [facility] Comment on above: Performed By: #### C DP, BMPX #### [place] [address] [employer] Supervisor: Michael Chen MD Eosinophils/100 WBC (Bld) 4 % Normal 1-4 [facility] Comment on above: Performed By: #### C DP, BMPX #### [place] [address] [employer] Supervisor: Michael Chen MD Erythrocyte distribution width (RBC) [Ratio] 13.7 % Normal 11.8-14.4 [facility] Comment on above: Performed By: #### C DP, BMPX #### [place] [address] [employer] Supervisor: Michael Chen MD Hematocrit (Bld) [Volume fraction] 26.8 % Low 36.3-47.1 [facility] Comment on above: Performed By: #### C DP, BMPX #### [place] [address] [employer] Supervisor: Michael Chen MD Hemoglobin (Bld) [Mass/Vol] 8.0 g/dL Low 11.9-15.1 [facility] Comment on above: Performed By: #### C DP, BMPX #### [place] [address] [employer] Supervisor: Micahel Chen MD Immature granulocytes/100 WBC (Bld) 1 % High 0 [facility] Comment on above: Performed By: #### C DP, BMPX #### [place] [address] [employer] Supervisor: Michael Chen MD Lymphocytes (Bld) [#/Vol] 1.38 10*3/uL Normal 1.10-3.70 [facility] Comment on above: Performed By: #### C DP, BMPX #### [address] [address] [employer] Supervisor: Michael Chen MD Lymphocytes/100 WBC (Bld) 24 % Normal 24-43 [facility] Comment on above: Performed By: #### C DP, BMPX #### [place] [address] [employer] Supervisor: Michael Chen MD MCH (RBC) [Entitic mass] 29.3 pg Normal 25.2-33.5 [facility] Comment on above: Performed By: #### C DP, BMPX #### [place] [address] [employer] Supervisor: Michael Cehn MD MCHC (RBC) [Mass/Vol] 29.9 g/dL Normal 28.4-34.8 [facility] Comment on above: Performed By: #### C DP, BMPX #### [place] [address] [employer] Supervisor: Michael Chen MD MCV (RBC) [Entitic vol] 98.2 fL Normal 82.6-102.9 [facility] Comment on above: Performed By: #### C DP, BMPX #### [place] [address] [employer] Supervisor: Michael Chen MD Monocytes (Bld) [#/Vol] 0.58 10*3/uL Normal 0.10-1.20 [facility] Comment on above: Performed By: #### C DP, BMPX #### [place] [address] [employer] Supervisor: Michael Chen MD Monocytes/100 WBC (Bld) 10 % Normal 3-12 [facility] Comment on above: Performed By: #### C DP, BMPX #### [address] [address] [employer] Supervisor: Michael Chen MD Neutrophil (Seg) 61 % Normal 36-65 [facility] Comment on above: Performed By: #### C DP, BMPX #### [address] [address] [employer] Supervisor: Michael Chen MD NRBC Automated 0.0 per 100 WBC Normal 0.0 [facility] Comment on above: Performed By: #### C DP, BMPX #### [address] [address] [employer] Supervisor: Michael Chen MD Platelet mean volume (Bld) [Entitic vol] 9.1 fL Normal 8.1-13.5 [facility] Comment on above: Performed By: #### C DP, BMPX #### [address] [address] [employer] Supervisor: Michael Chen MD Platelets (Bld) [#/Vol] 227 10*3/uL Normal 138-453 [facility] Comment on above: Performed By: #### C DP, BMPX #### [address] [address] [employer] Supervisor: Michael Chen MD RBC (Bld) [#/Vol] 2.73 10*6/uL Low 3.95-5.11 [facility] Comment on above: Performed By: #### C DP, BMPX #### [address] [address] [employer] Supervisor: Michael Chen MD WBC (Bld) [#/Vol] 5.9 10*3/uL Normal 3.5-11.3 [facility] Comment on above: Performed By: #### C DP, BMPX #### [address] [phone] [employer] Supervisor: Michael Chen MD FLUORO FOR SURGICAL PROCEDUR ESon 01-25-2024 FLUORO FOR SURGICAL PROCEDURES Radiology exam is complete. No Radiologist dictation. Please follow up with ordering provider. Final result Normal [facility] Hgb/Hcton 01-25-2024 Hematocrit (Bld) [Volume fraction] 30.8 % Low 36.3-47.1 [facility] Comment on above: Performed By: #### B MPX, CDP #### [address] [address] [employer] Supervisor: Michael Chen MD Hemoglobin (Bld) [Mass/Vol] 9.5 g/dL Low 11.9-15.1 [facility] Comment on above: Performed By: #### B MPX, CDP #### [address] [phone] [employer] Supervisor: Michael Chen MD Basic Metab w/rfx MGon 01-23 Anion gap [Moles/Vol] 10 mmol/L Normal 9-16 [facility] Comment on above: Performed By: #### B MPX, CDP #### [address] [address] [employer] Supervisor: Michael Chen MD Calcium [Mass/Vol] 8.2 mg/dL Low 8.6-10.4 [facility] Comment on above: Performed By: #### B MPX, CDP #### [facility] [employer] [address] [place] [address] [employer] Super[employer]: Michael Chen MD Chloride [Moles/Vol] 104 mmol/L Normal 98-107 [facility] Comment on above: Performed By: #### B MPX, CDP #### [facility] [employer] [address] [place] [address] [employer] Supervisor: Michael Chen MD CO2 [Moles/Vol] 22 mmol/L Normal 20-31 [facility] Comment on above: Performed By: #### B GERTRUDEX, CDP #### [facility] [employer] [address] [place] [address] [employer] Supervisor: Michael Chen MD Creatinine [Mass/Vol] 1.7 mg/dL High 0.50-0.90 [facility] Comment on above: Performed By: #### B MPX, CDP #### [facility] [employer] [address] [place] [address] [employer] Super[employer]: Michael Chen MD GFR/1.73 sq M.predicted among non-blacks MDRD (S/P/Bld) [Vol rate/Area] 34 mL/min/{1.73_m2} Low >60 [facility] Comment on above: Result Comment: These results [...] renal tubular secretion. Performed By: #### B GERTRUDEX, CDP #### [facility] [employer] [employer] [address] [place] [address] [employer] Supervisor: Michael Chen MD Glucose [Mass/Vol] 100 mg/dL High 74-99 [facility] Comment on above: Performed By: #### B GERTRUDEX, CDP #### [facility] [employer] [address] [place] [address] [employer] Supervisor: Michael Chen MD Potassium [Moles/Vol] 4.9 mmol/L Normal 3.7-5.3 [facility] Comment on above: Result Comment: SPEC IMEN SLIGHTLY HEMOLYZED, RESULTS MAY BE ADVERSELY AFFECTED. Performed By: #### B MPX, CDP #### [facility] [address] [place] [address] [employer] Supervisor: Michael Chen MD Sodium [Moles/Vol] 136 mmol/L Normal 136-145 [facility] Comment on above: Performed By: #### B MPX, CDP #### [facility] [employer] [address] [place] [address] [employer] Supervisor: Michael Chen MD Urea nitrogen [Mass/Vol] 51 mg/dL High 8-23 [facility] Comment on above: Performed By: #### B MPX, CDP #### [place] [address] [employer] Supervisor: Michael Chen MD CBC with Diffon 01-24-2024 Abs. Basophil 0.03 k/uL Normal 0.00-0.20 [facility] Comment on above: Performed By: #### B MPX, CDP #### [place] [address] [employer] Supervisor: Michael Chen MD Abs.Imm.Granulocyte 0.11 k/uL Normal 0.00-0.30 [facility] Comment on above: Performed By: #### B MPX, CDP #### [place] [address] [employer] Supervisor: Michael Chen MD Abs.Neutrophil (Seg) 3.73 k/uL Normal 1.50-8.10 [facility] Comment on above: Performed By: #### B MPX, CDP #### [place] [address] [employer] Supervisor: Michael Chen MD Basophils/100 WBC (Bld) 1 % Normal 0-2 [facility] Comment on above: Performed By: #### B MPX, CDP #### [address] [address] [employer] Supervisor: Michael Chen MD Eosinophils (Bld) [#/Vol] 0.24 10*3/uL Normal 0.00-0.44 [facility] Comment on above: Performed By: #### B MPX, CDP #### [facility] [employer] [address] [place] [address] [employer] Supervisor: Michael Chen MD Eosinophils/100 WBC (Bld) 4 % Normal 1-4 [facility] Comment on above: Performed By: #### B MPX, CDP #### [facility] [employer] [address] [place] [address] [employer] Supervisor: Michael Chen MD Erythrocyte distribution width (RBC) [Ratio] 13.8 % Normal 11.8-14.4 [facility] Comment on above: Performed By: #### B MPX, CDP #### [facility] [employer] [address] [place] [address] [employer] Supervisor: Michael Chen MD Hematocrit (Bld) [Volume fraction] 29.4 % Low 36.3-47.1 [facility] Comment on above: Performed By: #### B MPX, CDP #### [facility] [employer] [address] [place] [address] [employer] Supervisor: Michael Chen MD Hemoglobin (Bld) [Mass/Vol] 9.2 g/dL Low 11.9-15.1 [facility] Comment on above: Performed By: #### B MPX, CDP #### [facility] [employer] [address] [place] [address] [employer] Supervisor: Michael Chen MD Immature granulocytes/100 WBC (Bld) 2 % High 0 [facility] Comment on above: Performed By: #### B MPX, CDP #### [facility] [employer] [address] [place] [address] [employer] Supervisor: Michael Chen MD Lymphocytes (Bld) [#/Vol] 1.63 10*3/uL Normal 1.10-3.70 [facility] Comment on above: Performed By: #### B MPX, CDP #### [address] [address] [employer] Supervisor: Michael Chen MD Lymphocytes/100 WBC (Bld) 25 % Normal 24-43 [facility] Comment on above: Performed By: #### B MPX, CDP #### [address] [address] [employer] Supervisor: Michael Chen MD MCH (RBC) [Entitic mass] 30.8 pg Normal 25.2-33.5 [facility] Comment on above: Performed By: #### B MPX, CDP #### [address] [address] [employer] Supervisor: Michael Chen MD MCHC (RBC) [Mass/Vol] 31.3 g/dL Normal 28.4-34.8 [facility] Comment on above: Performed By: #### B MPX, CDP #### [address] [address] [employer] Supervisor: Michael Chen MD MCV (RBC) [Entitic vol] 98.3 fL Normal 82.6-102.9 [facility] Comment on above: Performed By: #### B MPX, CDP #### [address] [address] [employer] Supervisor: Michael Chen MD Monocytes (Bld) [#/Vol] 0.74 10*3/uL Normal 0.10-1.20 [facility] Comment on above: Performed By: #### B MPX, CDP #### [address] [address] [employer] Supervisor: Michael Chen MD Monocytes/100 WBC (Bld) 11 % Normal 3-12 [facility] Comment on above: Performed By: #### B MPX, CDP #### [address] [address] [employer] Supervisor: Michael Chen MD Neutrophil (Seg) 57 % Normal 36-65 [facility] Comment on above: Performed By: #### B MPX, CDP #### [address] [address] [employer] Supervisor: Michael Chen MD NRBC Automated 0.0 per 100 WBC Normal 0.0 [facility] Comment on above: Performed By: #### B MPX, CDP #### [address] [address] [employer] Supervisor: Michael Chen MD Platelet mean volume (Bld) [Entitic vol] 9.9 fL Normal 8.1-13.5 [facility] Comment on above: Performed By: #### B MPX, CDP #### [address] [address] [employer] Supervisor: Michael Chen MD Platelets (Bld) [#/Vol] 234 10*3/uL Normal 138-453 [facility] Comment on above: Performed By: #### B MPX, CDP #### [address] [address] [employer] Supervisor: Michael Chen MD RBC (Bld) [#/Vol] 2.99 10*6/uL Low 3.95-5.11 [facility] Comment on above: Performed By: #### B MPX, CDP #### [address] [address] [employer] Supervisor: Michael Chen MD WBC (Bld) [#/Vol] 6.5 10*3/uL Normal 3.5-11.3 [facility] Comment on above: Performed By: #### B MPX, CDP #### [address] [address] [employer] Supervisor: Michael Chen MD REINALDO Screen w/reflexon 2023 REINALDO Screen Negative Normal NEG [facility] Comment on above: Performed By: #### B MPX, CDP #### [facility] [employer] [address] [place] [address] [employer] Supervisor: Michael Chen MD Anti-dsDNA <0.5 Normal <10.0 [facility] Comment on above: Result Comment: Reference Range: <10.0 Negative 10.0-15.0 Equivocal >15.0 Positive Performed By: #### B MPX, CDP #### [address] [address] [employer] Supervisor: Michael Chen MD CHINA Screen 0.1 U/mL Normal <0.[address] [place] [address] Comment on above: Result Comment: Reference Range: <0.7 Negative 0.7-1.0 Equivocal >1.0 Positive [place] Screen includes U1RNP,RNP70,Sm,Ro(SS-A),La(SS-B),CENP,Scl-70,Elli-1 Performed By: #### B MPX, CDP #### [address] [address] [employer] Supervisor: Michael Chen MD REINALDO Screen Negative Normal NEG [facility] Comment on above: Performed By: #### C DP, CMPX #### [address] [address] [employer] Supervisor: Michael Chen MD Anti-dsDNA 0.7 IU/mL Normal <10.0 [facility] Comment on above: Result Comment: Reference Range: <10.0 Negative 10.0-15.0 Equivocal >15.0 Positive Performed By: #### C DP, CMPX #### [address] [address] [employer] Supervisor: Michael Chen MD CHINA Screen 0.2 U/mL Normal <0.7 [facility] Comment on above: Result Comment: Reference Range: <0.7 Negative 0.7-1.0 Equivocal >1.0 Positive [place] Screen includes U1RNP,RNP70,Sm,Ro(SS-A),La(SS-B),CENP,Scl-70,Elli-1 Performed By: #### C DP, CMPX #### [address] [address] [employer] Supervisor: Michael Chen MD Anti CCPon 01-23-2024 Anti CCP 0.6 U/mL Normal 0.0-7.0 [facility] Comment on above: Result Comment: Reference Range: <7.0 Negative 7.0-10.0 Equivocal >10.0 Positive Performed By: #### B MPX, CDP #### [address] [address] [employer] Supervisor: Michael Chen MD Basic Metab w/rfx MGon 01-22 Anion gap [Moles/Vol] 8 mmol/L Low 9-16 [facility] Comment on above: Performed By: #### B MPX, CDP #### [facility] [employer] [address] [place] [address] [employer] Supervisor: Michael Chen MD Calcium [Mass/Vol] 8.2 mg/dL Low 8.6-10.4 [facility] Comment on above: Performed By: #### B MPX, CDP #### [facility] [employer] [address] [place] [address] [employer] Supervisor: Michael Chen MD Chloride [Moles/Vol] 106 mmol/L Normal 98-107 [facility] Comment on above: Performed By: #### B MPX, CDP #### [facility] [employer] [address] [place] [address] [employer] Supervisor: Michael Chen MD CO2 [Moles/Vol] 21 mmol/L Normal 20-31 [facility] Comment on above: Performed By: #### B MPX, CDP #### [facility] [employer] [address] [place] [address] [employer] Supervisor: Michael Chen MD Creatinine [Mass/Vol] 1.7 mg/dL High 0.50-0.90 [facility] Comment on above: Performed By: #### B MPX, CDP #### [facility] [employer] [address] [place] [address] [employer] Supervisor: Michael Chen MD GFR/1.73 sq M.predicted among non-blacks MDRD (S/P/Bld) [Vol rate/Area] 33 mL/min/{1.73_m2} Low >60 [facility] Comment on above: Result Comment: These results [...] Performed By: #### B MPX, CDP #### [employer] [address] [place] [address] [employer] Supervisor: Michael Chen MD Glucose [Mass/Vol] 88 mg/dL Normal 74-99 [facility] Comment on above: Performed By: #### B MPX, CDP #### [facility] [employer] [address] [place] [address] [employer] Supervisor: Michael Chen MD Potassium [Moles/Vol] 4.8 mmol/L Normal 3.7-5.3 [facility] Comment on above: Performed By: #### B MPX, CDP #### [facility] [employer] [address] [place] [address] [employer] Supervisor: Michael Chen MD Sodium [Moles/Vol] 135 mmol/L Low 136-145 [facility] Comment on above: Performed By: #### B MPX, CDP #### [facility] [employer] [address] [place] [address] [place] [address] [employer] Supervisor: Michael Chen MD Urea nitrogen [Mass/Vol] 56 mg/dL High 8-23 [facility] Comment on above: Performed By: #### B MPX, CDP #### [facility] [employer] [address] [place] [address] [employer] Supervisor: Michael Chen MD CBC with Diffon 01-23-2024 Abs. Basophil <0.03 Normal 0.00-0.20 [facility] Comment on above: Performed By: #### B MPX, CDP #### [facility] [employer] [address] [place] [address] [employer] Supervisor: Michael Chen MD Abs.Imm.Granulocyte 0.03 k/uL Normal 0.00-0.30 [facility] Comment on above: Performed By: #### B MPX, CDP #### [facility] [employer] [address] [place] [address] [employer] Supervisor: Michael Chen MD Abs.Neutrophil (Seg) 5.50 k/uL Normal 1.50-8.10 [facility] Comment on above: Performed By: #### B MPX, CDP #### [facility] [employer] [address] [place] [address] [employer] Supervisor: Michael Chen MD Basophils/100 WBC (Bld) 0 % Normal 0-2 [facility] Comment on above: Performed By: #### B MPX, CDP #### [facility] [employer] [address] [place] [address] [employer] Supervisor: Michael Chen MD Eosinophils (Bld) [#/Vol] 0.15 10*3/uL Normal 0.00-0.44 [facility] Comment on above: Performed By: #### B MPX, CDP #### [facility] [employer] [address] [place] [address] [employer] Supervisor: Michael Chen MD Eosinophils/100 WBC (Bld) 2 % Normal 1-4 [facility] Comment on above: Performed By: #### B MPX, CDP #### [facility] [employer] [address] [place] [address] [employer] Supervisor: Michael Chen MD Erythrocyte distribution width (RBC) [Ratio] 13.7 % Normal 11.8-14.4 [facility] Comment on above: Performed By: #### B MPX, CDP #### [facility] [employer] [address] [place] [address] [employer] Supervisor: Michael Chen MD Hematocrit (Bld) [Volume fraction] 28.9 % Low 36.3-47.1 [facility] Comment on above: Performed By: #### B MPX, CDP #### [facility] [employer] [address] [place] [address] [employer] Supervisor: Michael Chen MD Hemoglobin (Bld) [Mass/Vol] 8.6 g/dL Low 11.9-15.1 [facility] Comment on above: Performed By: #### B MPX, CDP #### [address] [address] [employer] Supervisor: Michael Chen MD Immature granulocytes/100 WBC (Bld) 0 % Normal 0 [facility] Comment on above: Performed By: #### B MPX, CDP #### [address] [address] [employer] Supervisor: Michael Chen MD Lymphocytes (Bld) [#/Vol] 1.07 10*3/uL Low 1.10-3.70 [facility] Comment on above: Performed By: #### B MPX, CDP #### [facility] [employer] [address] [place] [address] [employer] Supervisor: Michael Chen MD Lymphocytes/100 WBC (Bld) 14 % Low 24-43 [facility] Comment on above: Performed By: #### B MPX, CDP #### [facility] [address] [place] [address] [employer] Supervisor: Michael Chen MD MCH (RBC) [Entitic mass] 30.2 pg Normal 25.2-33.5 [facility] Comment on above: Performed By: #### B MPX, CDP #### [facility] [address] [place] [address] [employer] Supervisor: Michael Chen MD MCHC (RBC) [Mass/Vol] 29.8 g/dL Normal 28.4-34.8 [facility] Comment on above: Performed By: #### B MPX, CDP #### [facility] [employer] [address] [place] [address] [employer] Supervisor: Michael Chen MD MCV (RBC) [Entitic vol] 101.4 fL Normal 82.6-102.9 [facility] Comment on above: Performed By: #### B MPX, CDP #### [address] [address] [employer] Supervisor: Michael Chen MD Monocytes (Bld) [#/Vol] 0.72 10*3/uL Normal 0.10-1.20 [facility] Comment on above: Performed By: #### B MPX, CDP #### [address] [address] [employer] Supervisor: Michael Chen MD Monocytes/100 WBC (Bld) 10 % Normal 3-12 [facility] Comment on above: Performed By: #### B MPX, CDP #### [facility] [employer] [address] [place] [address] [employer] Supervisor: Michael Chen MD Neutrophil (Seg) 74 % High 36-65 [facility] Comment on above: Performed By: #### B MPX, CDP #### [address] [address] [employer] Supervisor: Michael Chen MD NRBC Automated 0.0 per 100 WBC Normal 0.0 [facility] Comment on above: Performed By: #### B MPX, CDP #### [address] [address] [employer] Supervisor: Michael Chen MD Platelet mean volume (Bld) [Entitic vol] 9.9 fL Normal 8.1-13.5 [facility] Comment on above: Performed By: #### B MPX, CDP #### [address] [address] [employer] Supervisor: Michael Chen MD Platelets (Bld) [#/Vol] 292 10*3/uL Normal 138-453 [facility] Comment on above: Performed By: #### B MPX, CDP #### [address] [address] [employer] Supervisor: Michael Chen MD RBC (Bld) [#/Vol] 2.85 10*6/uL Low 3.95-5.11 [facility] Comment on above: Performed By: #### B MPX, CDP #### [address] [address] [employer] Supervisor: Michael Chen MD WBC (Bld) [#/Vol] 7.5 10*3/uL Normal 3.5-11.3 [facility] Comment on above: Performed By: #### B MPX, CDP #### [address] [address] [employer] Supervisor: Michael Chen MD APTTon 01-22-2024 aPTT Coag (Bld) [Time] 29.1 s Normal 23.0-36.5 [facility] Comment on above: Result Comment: IV Heparin Therapy Range: 66.0-92.0 sec Performed By: #### C DP, CMPX #### [facility] [employer] [address] [place] [address] [employer] Supervisor: Michael Chen MD Basic Metab w/rfx MGon 01-21 Anion gap [Moles/Vol] 10 mmol/L Normal 9-16 [facility] Comment on above: Performed By: #### C DP, CMPX #### [facility] [employer] [address] [place] [address] [employer] Supervisor: Michael Chen MD Calcium [Mass/Vol] 8.3 mg/dL Low 8.6-10.4 [facility] Comment on above: Performed By: #### C DP, CMPX #### [facility] [employer] [address] [place] [address] [employer] Supervisor: Michael Chen MD Chloride [Moles/Vol] 107 mmol/L Normal 98-107 [facility] Comment on above: Performed By: #### C DP, CMPX #### [facility] [employer] [address] [place] [address] [employer] Supervisor: Michael Chen MD CO2 [Moles/Vol] 21 mmol/L Normal 20-31 [facility] Comment on above: Performed By: #### C DP, CMPX #### [facility] [employer] [address] [place] [address] [employer] Supervisor: Michael Chen MD Creatinine [Mass/Vol] 1.8 mg/dL High 0.50-0.90 [facility] Comment on above: Performed By: #### C DP, CMPX #### [facility] [employer] [address] [place] [address] [employer] Supervisor: Michael Chen MD GFR/1.73 sq M.predicted among non-blacks MDRD (S/P/Bld) [Vol rate/Area] 32 mL/min/{1.73_m2} Low >60 [facility] Comment on above: Result Comment: These results [...] tubular secretion. Performed By: #### C DP, CMPX #### [facility] [employer] [address] [place] [address] [employer] Supervisor: Michael Chen MD Glucose [Mass/Vol] 86 mg/dL Normal 74-99 [facility] Comment on above: Performed By: #### C DP, CMPX #### [facility] [employer] [address] [place] [address] [employer] Supervisor: Michael Chen MD Potassium [Moles/Vol] 4.1 mmol/L Normal 3.7-5.3 [facility] Comment on above: Performed By: #### C DP, CMPX #### [facility] [employer] [address] [place] [address] [employer] Supervisor: Michael Chen MD Sodium [Moles/Vol] 138 mmol/L Normal 136-145 [facility] Comment on above: Performed By: #### C DP, CMPX #### [facility] [employer] [address] [place] [address] [employer] Supervisor: Michael Chen MD Urea nitrogen [Mass/Vol] 66 mg/dL High 8-23 [facility] Comment on above: Performed By: #### C DP, CMPX #### [facility] [address] [place] [address] [employer] Supervisor: Michael Chen MD C-Reactive Proteinon 024 CRP [Mass/Vol] 31.7 mg/L High 0.0-5.0 [facility] Comment on above: Performed By: #### B MPX, CDP #### [facility] [address] [place] [address] [employer] Super[employer]: Michael Chen MD C3on 01-22-2024 C3 111 mg/dL Normal 90-180 [facility] Comment on above: Performed By: #### B MPX, CDP #### [address] [address] [employer] Super[employer]: Michael Chen MD C4on 01-22-2024 C4 21 mg/dL Normal 10-40 [facility] Comment on above: Performed By: #### B MPX, CDP #### [address] [address] [employer] Supervisor: Michael Chen MD CBC with Diffon 01-22-2024 Abs. Basophil 0.00 k/uL Normal 0.00-0.20 [facility] Comment on above: Performed By: #### C DP, CMPX #### [address] [address] [employer] Supervisor: Michael Chen MD Abs.Imm.Granulocyte 0.00 k/uL Normal 0.00-0.30 [facility] Comment on above: Performed By: #### C DP, CMPX #### [address] [address] [employer] Supervisor: Michael Chen MD Abs.Neutrophil (Seg) 6.12 k/uL Normal 1.50-8.10 [facility] Comment on above: Performed By: #### C DP, CMPX #### [address] [address] [employer] Supervisor: Michael Chen MD Basophils/100 WBC (Bld) 0 % Normal 0-2 [facility] Comment on above: Performed By: #### C DP, CMPX #### [address] [address] [employer] Supervisor: Michael Chen MD Eosinophils (Bld) [#/Vol] 0.07 10*3/uL Normal 0.00-0.44 [facility] Comment on above: Performed By: #### C DP, CMPX #### [address] [address] [employer] Supervisor: Michael Chen MD Eosinophils/100 WBC (Bld) 1 % Normal 1-4 [facility] Comment on above: Performed By: #### C DP, CMPX #### [address] [address] [employer] Supervisor: Michael Chen MD Immature granulocytes/100 WBC (Bld) 0 % Normal 0 [facility] Comment on above: Performed By: #### C DP, CMPX #### [address] [address] [employer] Supervisor: Michael Chen MD Lymphocytes (Bld) [#/Vol] 0.58 10*3/uL Low 1.10-3.70 [facility] Comment on above: Performed By: #### C DP, CMPX #### [address] [address] [employer] Supervisor: Michael Chen MD Lymphocytes/100 WBC (Bld) 8 % Low 24-43 [facility] Comment on above: Performed By: #### C DP, CMPX #### [address] [address] [employer] Supervisor: Michael Chen MD Monocytes (Bld) [#/Vol] 0.43 10*3/uL Normal 0.10-1.20 [facility] Comment on above: Performed By: #### C DP, CMPX #### [address] [address] [employer] Supervisor: Michael Chen MD Monocytes/100 WBC (Bld) 6 % Normal 3-12 [facility] Comment on above: Performed By: #### C DP, CMPX #### [address] [address] [employer] Supervisor: Michael Chen MD Morphology Pedro (Bld) [Interp] Normal Normal [facility] Comment on above: Performed By: #### C DP, CMPX #### [address] [address] [employer] Supervisor: Michael Chen MD Neutrophil (Seg) 85 % High 36-65 [facility] Comment on above: Performed By: #### C DP, CMPX #### [address] [address] [employer] Supervisor: Michael Chen MD Erythrocyte distribution width (RBC) [Ratio] 13.6 % Normal 11.8-14.4 [facility] Comment on above: Performed By: #### C DP, CMPX #### [address] [address] [employer] Super[employer]: Michael Chen MD Hematocrit (Bld) [Volume fraction] 30.3 % Low 36.3-47.1 [facility] Comment on above: Performed By: #### C DP, CMPX #### [address] [address] [employer] Supervisor: Michael Chen MD Hemoglobin (Bld) [Mass/Vol] 9.3 g/dL Low 11.9-15.1 [facility] Comment on above: Performed By: #### C DP, CMPX #### [address] [address] [employer] Supervisor: Michael Chen MD MCH (RBC) [Entitic mass] 30.8 pg Normal 25.2-33.5 [facility] Comment on above: Performed By: #### C DP, CMPX #### [address] [address] [employer] Supervisor: Michael Chen MD MCHC (RBC) [Mass/Vol] 30.7 g/dL Normal 28.4-34.8 [facility] Comment on above: Performed By: #### C DP, CMPX #### [address] [address] [employer] Super[employer]: Michael Chen MD MCV (RBC) [Entitic vol] 100.3 fL Normal 82.6-102.9 [facility] Comment on above: Performed By: #### C DP, CMPX #### [address] [address] [employer] Supervisor: Michael Chen MD NRBC Automated 0.0 per 100 WBC Normal 0.0 [facility] Comment on above: Performed By: #### C DP, CMPX #### [address] [address] [employer] Supervisor: Michael Chen MD Platelet mean volume (Bld) [Entitic vol] 9.6 fL Normal 8.1-13.5 [facility] Comment on above: Performed By: #### C DP, CMPX #### [address] [address] [employer] Supervisor: Michael Chen MD Platelets (Bld) [#/Vol] 329 10*3/uL Normal 138-453 [facility] Comment on above: Performed By: #### C DP, CMPX #### [address] [address] [employer] Supervisor: Michael Chen MD RBC (Bld) [#/Vol] 3.02 10*6/uL Low 3.95-5.11 [facility] Comment on above: Performed By: #### C DP, CMPX #### [address] [address] [employer] Supervisor: Michael Chen MD WBC (Bld) [#/Vol] 7.2 10*3/uL Normal 3.5-11.3 [facility] Comment on above: Performed By: #### C DP, CMPX #### [facility] [employer] [address] [place] [address] [employer] Supervisor: Michael Chen MD CT CERVICAL SPINE WO [...] Anuj Paniagua MD 01/22/24 Final result Normal [facility] CT CHEST ABDOMEN PELVIS W CO NTRASTon [...] bladder is markedly distended. Status post hysterectomy. Peritoneum/Retroperitoneum : No evidence of ascites or free air. [...] Anuj Paniagua MD 01/22/24 Final result Normal [facility] CT HEAD WO CONTRASTon 2023 CT HEAD [...] Anuj Paniagua MD 01/22/24 Final result Normal [facility] CT LUMBAR SPINE BONY RECONST RUCTIONon 01-22-2024 [...] Anuj Paniagua MD 01/22/24 Final result Normal [facility] CT THORACIC SPINE BONY RECON STRUCTIONon 01-22-2024 [...] Anuj Paniagua MD 01/22/24 Final result Normal [facility] CTA HEAD NECK W CONTRASTon 0 01-22-2024 [...] Anuj Paniagua MD 01/22/24 Final result Normal [facility] Creatine Kinaseon 01-22-2024 CK [Catalytic activity/Vol] 38 U/L Normal 26-192 [facility] Comment on above: Performed By: #### B MPX, CDP #### [facility] [employer] [address] [place] [address] [employer] Supervisor: Michael Chen MD MRI BRAIN WO CONTRASTon [...] Shabbir Martin MD 01/22/24 Final result Normal [facility] MRI CERVICAL SPINE WO CONTRA STon 01-22-2024 [...] Kirby Adames MD 01/22/24 Final result Normal [facility] PTon 01-22-2024 INR Coag (PPP) [Relative time] 1.1 {INR} Normal [facility] Comment on above: Result Comment: Therapeutic Range: Moderate Anticoagulant Intensity: INR = 2.0-3.0 High Anticoagulant Intensity: INR = 2.5-3.5 Performed By: #### C DP, CMPX #### [employer] [address] [place] [address] [employer] Supervisor: Michael Chen MD PT Coag (PPP) [Time] 14.2 s Normal 11.7-14.9 [facility] Comment on above: Performed By: #### C DP, CMPX #### [facility] [employer] [address] [place] [address] [employer] Supervisor: Michael Chen MD RA Screenon 01-22-2024 RA Screen <10 Normal 0-13 [facility] Comment on above: Performed By: #### B MPX, CDP #### [facility] [address] [place] [address] [employer] Supervisor: Michael Chen MD Sedimentation Rateon 024 Sedimentation Rate 11 mm/Hr Normal 0-30 [facility] Comment on above: Performed By: #### B MPX, CDP #### [facility] [address] [place] [address] [employer] Supervisor: Michael Chen MD Type + Screenon 01-22-2024 Type + Screen Sample Expiration 01/25/2024,2359 Arm Band Number [id number] ABO/Rh(D) A POSITIVE Antibody Screen NEGATIVE Normal [facility] Comment on above: Performed By: #### B MPX, CDP #### [facility] [address] [place] [address] [employer] Supervisor: Michael Chen MD Uric Acidon 01-22-2024 Urate [Mass/Vol] 9.6 mg/dL High 2.4-5.7 [facility] Comment on above: Performed By: #### B MPX, CDP #### [facility] [address] [place] [address] [employer] Supervisor: Michael Chen MD Vitamin D 25 OHon 01-22-2024 Vitamin D 25 OH 30.3 ng/mL Normal 30.0-100.0 [facility] Comment on above: Result Comment: Reference Range: Vitamin D status Range Deficiency <20 ng/mL Mild Deficiency 20-30 ng/mL Sufficiency 30-100 ng/mL Toxicity >100 ng/mL Performed By: #### B MPX, CDP #### [employer] [address] [place] [address] [employer] Supervisor: Michael Chen MD XR CHEST (SINGLE VIEW FRONTA L)on 01-22-2024 XR CHEST (SINGLE VIEW FRONTAL) EXAMINATION: ONE XRAY VIEW OF THE CHEST 01/22/2024 10:06 am COMPARISON: Chest radiograph 09/30/2023 HISTORY: ORDERING SYSTEM PROVIDED HISTORY: pre-op social work job titles PROVIDED HISTORY: Pre-op imaging FINDINGS: Lines/tubes: Right [...] Migel Price MD 01/22/24 Final result Normal [facility] Office Visiton 12-21-2023 Follow-up visit [id number] Loren Moser A 1960 F Date Provider Department Center 12/21/2023 BENJIE LERMA YVONNE [place] Family History Family history unknown: Yes Level of Service:70084 SC OFFICE/OUTPATIENT ESTABLISHED MOD MDM 30 MIN Normal [facility] Orders Onlyon 12-21-2023 Orders Only [id number] Loren Moser 1960 F Date Provider Department Center 12/21/2023 MIKAYLA BURGER YVONNE [place] Family History Family history unknown: Yes Normal [facility] Basic Metab w/rfx MGon 09-30 Anion gap [Moles/Vol] 8 mmol/L Low 9-16 [facility] Comment on above: Performed By: #### C DP, BMPX #### [employer] [address] [place] [address] [employer] Supervisor: Michael Chen MD Calcium [Mass/Vol] 8.1 mg/dL Low 8.6-10.4 [facility] Comment on above: Performed By: #### C DP, BMPX #### [address] [address] [employer] Supervisor: Michael Chen MD Chloride [Moles/Vol] 101 mmol/L Normal 98-107 [facility] Comment on above: Performed By: #### C DP, BMPX #### [address] [address] [employer] Supervisor: Michael Chen MD CO2 [Moles/Vol] 23 mmol/L Normal 20-31 [facility] Comment on above: Performed By: #### C DP, BMPX #### [address] [address] [employer] Supervisor: Michael Chen MD Creatinine [Mass/Vol] 1.5 mg/dL High 0.50-0.90 [facility] Comment on above: Performed By: #### C DP, BMPX #### [address] [address] [employer] Supervisor: Michael Chen MD GFR/1.73 sq M.predicted among non-blacks MDRD (S/P/Bld) [Vol rate/Area] 39 mL/min/{1.73_m2} Low >60 [facility] Comment on above: Result Comment: These results [...] Performed By: #### C DP, BMPX #### [facility] [employer] [address] [place] [address] [place] [address] [employer] Supervisor: Michael Chen MD Glucose [Mass/Vol] 100 mg/dL High 74-99 [facility] Comment on above: Performed By: #### C DP, BMPX #### [facility] [address] [place] [address] [employer] Supervisor: Michael Chen MD Potassium [Moles/Vol] 4.4 mmol/L Normal 3.7-5.3 [facility] Comment on above: Performed By: #### C DP, BMPX #### [facility] [employer] [address] [place] [address] [employer] Supervisor: Michael Chen MD Sodium [Moles/Vol] 132 mmol/L Low 136-145 [facility] Comment on above: Performed By: #### C DP, BMPX #### [facility] [employer] [address] [place] [address] [employer] Supervisor: Michael Chen MD Urea nitrogen [Mass/Vol] 56 mg/dL High 8-23 [facility] Comment on above: Performed By: #### C DP, BMPX #### [facility] [employer] [address] [place] [address] [employer] Supervisor: Michael Chen MD CBC with Diffon 10-01-2023 Abs. Basophil 0.03 k/uL Normal 0.00-0.20 [facility] Comment on above: Performed By: #### C DP, BMPX #### [facility] [employer] [address] [place] [address] [employer] Supervisor: Michael Chen MD Abs.Imm.Granulocyte 0.05 k/uL Normal 0.00-0.30 [facility] Comment on above: Performed By: #### C DP, BMPX #### [facility] [employer] [address] [place] [address] [employer] Supervisor: Michael Chen MD Abs.Neutrophil (Seg) 6.55 k/uL Normal 1.50-8.10 [facility] Comment on above: Performed By: #### C DP, BMPX #### [address] [address] [employer] Supervisor: Michael Chen MD Basophils/100 WBC (Bld) 0 % Normal 0-2 [facility] Comment on above: Performed By: #### C DP, BMPX #### [place] [address] [employer] Supervisor: Mihcael Chen MD Eosinophils (Bld) [#/Vol] 0.10 10*3/uL Normal 0.00-0.44 [facility] Comment on above: Performed By: #### C DP, BMPX #### [place] [address] [employer] Supervisor: Michael Chen MD Eosinophils/100 WBC (Bld) 1 % Normal 1-4 [facility] Comment on above: Performed By: #### C DP, BMPX #### [place] [address] [employer] Supervisor: Michael hCen MD Erythrocyte distribution width (RBC) [Ratio] 13.6 % Normal 11.8-14.4 [facility] Comment on above: Performed By: #### C DP, BMPX #### [place] [address] [employer] Supervisor: Michael Chen MD Hematocrit (Bld) [Volume fraction] 27.9 % Low 36.3-47.1 [facility] Comment on above: Performed By: #### C DP, BMPX #### [place] [address] [employer] Supervisor: Michael Chen MD Hemoglobin (Bld) [Mass/Vol] 8.4 g/dL Low 11.9-15.1 [facility] Comment on above: Performed By: #### C DP, BMPX #### [address] [address] [employer] Supervisor: Michael Chen MD Immature granulocytes/100 WBC (Bld) 1 % High 0 [facility] Comment on above: Performed By: #### C DP, BMPX #### [place] [address] [employer] Supervisor: Michael Chen MD Lymphocytes (Bld) [#/Vol] 0.94 10*3/uL Low 1.10-3.70 [facility] Comment on above: Performed By: #### C DP, BMPX #### [place] [address] [employer] Supervisor: Michael Chen MD Lymphocytes/100 WBC (Bld) 11 % Low 24-43 [facility] Comment on above: Performed By: #### C DP, BMPX #### [place] [address] [employer] Supervisor: Micahel Chen MD MCH (RBC) [Entitic mass] 30.5 pg Normal 25.2-33.5 [facility] Comment on above: Performed By: #### C DP, BMPX #### [place] [address] [employer] Supervisor: Michael Chen MD MCHC (RBC) [Mass/Vol] 30.1 g/dL Normal 28.4-34.8 [facility] Comment on above: Performed By: #### C DP, BMPX #### [facility] [employer] [address] [place] [address] [employer] Supervisor: Michael Chen MD MCV (RBC) [Entitic vol] 101.5 fL Normal 82.6-102.9 [facility] Comment on above: Performed By: #### C DP, BMPX #### [address] [address] [employer] Supervisor: Michael Chen MD Monocytes (Bld) [#/Vol] 0.54 10*3/uL Normal 0.10-1.20 [facility] Comment on above: Performed By: #### C DP, BMPX #### [address] [address] [employer] Supervisor: Michael Chen MD Monocytes/100 WBC (Bld) 7 % Normal 3-12 [facility] Comment on above: Performed By: #### C DP, BMPX #### [address] [address] [employer] Supervisor: Michael Chen MD Neutrophil (Seg) 80 % High 36-65 [facility] Comment on above: Performed By: #### C DP, BMPX #### [address] [address] [employer] Supervisor: Michael Chen MD NRBC Automated 0.0 per 100 WBC Normal 0.0 [facility] Comment on above: Performed By: #### C DP, BMPX #### [address] [address] [employer] Supervisor: Michael Chen MD Platelet mean volume (Bld) [Entitic vol] 8.9 fL Normal 8.1-13.5 [facility] Comment on above: Performed By: #### C DP, BMPX #### [address] [address] [employer] Supervisor: Michael Chen MD Platelets (Bld) [#/Vol] 281 10*3/uL Normal 138-453 [facility] Comment on above: Performed By: #### C DP, BMPX #### [address] [address] [employer] Supervisor: Michael Chen MD RBC (Bld) [#/Vol] 2.75 10*6/uL Low 3.95-5.11 [facility] Comment on above: Performed By: #### C DP, BMPX #### [facility] [employer] [address] [place] [address] [employer] Supervisor: Michael Chen MD WBC (Bld) [#/Vol] 8.2 10*3/uL Normal 3.5-11.3 [facility] Comment on above: Performed By: #### C DP, BMPX #### [facility] [employer] [address] [place] [address] [employer] Supervisor: Michael Chen MD Basic Metab w/rfx MGon 09-29 Anion gap [Moles/Vol] 12 mmol/L Normal 9-16 [facility] Comment on above: Performed By: #### C DP, BMPX #### [facility] [employer] [address] [place] [address] [employer] Supervisor: Michael Chen MD Calcium [Mass/Vol] 8.2 mg/dL Low 8.6-10.4 [facility] Comment on above: Performed By: #### C DP, BMPX #### [facility] [employer] [address] [place] [address] [employer] Supervisor: Michael Chen MD Chloride [Moles/Vol] 103 mmol/L Normal 98-107 [facility] Comment on above: Performed By: #### C DP, BMPX #### [facility] [employer] [address] [place] [address] [employer] Supervisor: Michael Chen MD CO2 [Moles/Vol] 23 mmol/L Normal 20-31 [facility] Comment on above: Performed By: #### C DP, BMPX #### [facility] [employer] [address] [place] [address] [employer] Supervisor: Michael Chen MD Creatinine [Mass/Vol] 1.6 mg/dL High 0.50-0.90 [facility] Comment on above: Performed By: #### C DP, BMPX #### [facility] [employer] [address] [place] [address] [employer] Supervisor: Michael Chen MD GFR/1.73 sq M.predicted among non-blacks MDRD (S/P/Bld) [Vol rate/Area] 35 mL/min/{1.73_m2} Low >60 [facility] Comment on above: Result Comment: These results [...] Performed By: #### C DP, BMPX #### [facility] [employer] [address] [place] [address] [employer] Supervisor: Michael Chen MD Glucose [Mass/Vol] 89 mg/dL Normal 74-99 [facility] Comment on above: Performed By: #### C DP, BMPX #### [facility] [employer] [address] [place] [address] [employer] Supervisor: Michael Chen MD Potassium [Moles/Vol] 4.6 mmol/L Normal 3.7-5.3 [facility] Comment on above: Result Comment: SPEC IMEN SLIGHTLY HEMOLYZED, RESULTS MAY BE ADVERSELY AFFECTED. Performed By: #### C DP, BMPX #### [facility] [address] [place] [address] [employer] Supervisor: Michael Chen MD Sodium [Moles/Vol] 138 mmol/L Normal 136-145 [facility] Comment on above: Performed By: #### C DP, BMPX #### [facility] [employer] [address] [place] [address] [employer] Supervisor: Michael Chen MD Urea nitrogen [Mass/Vol] 57 mg/dL High 8-23 [facility] Comment on above: Performed By: #### C DP, BMPX #### [facility] [address] [place] [address] [employer] Supervisor: Michael Chen MD Brain Natri. Peptideon 09-29 Natriuretic peptide B (Bld) [Mass/Vol] 1428 pg/mL High 0-300 [facility] Comment on above: Result Comment: An a ge-independent cutoff point of 300 pg/ml has a 98% negative predictive value excluding acute heart failure. Performed By: #### C DP, BMPX #### [facility] [employer] [address] [place] [address] [employer] Supervisor: Michael Chen MD Liver Profileon Albumin [Mass/Vol] 3.5 g/dL Normal 3.5-5.2 [facility] Comment on above: Performed By: #### C DP, BMPX #### [facility] [employer] [address] [place] [address] [employer] Supervisor: Michael Chen MD Albumin/Glob Ratio 2.0 Normal 1.0-2.5 [facility] Comment on above: Performed By: #### C DP, BMPX #### [facility] [address] [place] [address] [employer] Supervisor: Michael Chen MD Alkaline Phos 301 U/L High 35-104 [facility] Comment on above: Performed By: #### C DP, BMPX #### [facility] [employer] [address] [place] [address] [employer] Supervisor: Michael Chen MD ALT [Catalytic activity/Vol] 17 U/L Normal 10-35 [facility] Comment on above: Performed By: #### C DP, BMPX #### [facility] [address] [place] [address] [employer] Supervisor: Michael Chen MD AST [Catalytic activity/Vol] 33 U/L Normal 10-35 [facility] Comment on above: Result Comment: SPEC IMEN SLIGHTLY HEMOLYZED, RESULTS MAY BE ADVERSELY AFFECTED. Performed By: #### C DP, BMPX #### [address] [address] [employer] Supervisor: Michael Chen MD Bilirubin [Mass/Vol] 0.2 mg/dL Normal 0.00-1.20 [facility] Comment on above: Performed By: #### C DP, BMPX #### [address] [address] [employer] Supervisor: Michael Chen MD Bilirubin, Indirect 0.1 mg/dL Normal 0.0-1.0 [facility] Comment on above: Performed By: #### C DP, BMPX #### [facility] [employer] [address] [place] [address] [employer] Supervisor: Michael Chen MD Bilirubin.indirect [Mass/Vol] mg/dL Normal 0.00-0.30 [facility] Comment on above: Performed By: #### C DP, BMPX #### [facility] [employer] [address] [place] [address] [employer] Supervisor: Michael Chen MD Globulin (S) [Mass/Vol] 2.1 g/dL Normal [facility] Comment on above: Performed By: #### C DP, BMPX #### [facility] [address] [place] [address] [employer] Supervisor: Michael Chen MD Protein [Mass/Vol] 5.6 g/dL Low 6.6-8.7 [facility] Comment on above: Performed By: #### C DP, BMPX #### [facility] [employer] [address] [place] [address] [employer] Supervisor: Micahel Chen MD Specimen Rejectionon 024 Reason for rejection Unable to perform t esting: Specimen clotted. Normal [facility] Comment on above: Performed By: #### C DP, BMPX #### [facility] [employer] [address] [place] [phone] [employer] Supervisor: Michael Chen MD Source of sample .BLOOD Normal [facility] Comment on above: Performed By: #### C DP, BMPX #### [facility] [address] [place] [phone] [employer] Supervisor: Michael Chen MD Test ordered CDP Normal [facility] Comment on above: Performed By: #### C DP, BMPX #### [address] [phone] [employer] Supervisor: Michael Chen MD XR CERVICAL SPINE (2-3 [...] Carlos Peralta MD 09/30/23 Final result Normal [facility] XR CHEST PORTABLEon 09-30-19 XR CHEST PORTABLE [...] Carlos Peralta MD 09/30/23 Final result Normal [facility] Absolute reticulocyte countO rdered By: [place] on 07-03-2023 Reticulocytes (Bld) [#/Vol] 0.039 10*6/uL 0.024-0.08 4 [facility] Basic Metabolic Panelon Creatinine Clr Calc Pharmacy 25.88 [facility] Comment on above: Performed By: #### V [id number], MG, BMP, JOSE, FE and TIBC, RETIC #### [facility] [address] [place] [address] [place] GFR/1.73 sq M.predicted MDRD (S/P/Bld) [Vol rate/Area] 23.348 mL/min/{1.73_m2} Normal [facility] Comment on above: Performed By: #### V [id number], MG, BMP, JOSE, FE and TIBC, RETIC #### [facility] [address] [place] [address] [place] Calcium [Mass/volume] in Ser um or PlasmaOrdered By: Jim Randhawa on 07-03-2023 Calcium [Mass/Vol] 8.3 mg/dL Low 8.6-10.3 [facility] Comment on above: Performed By: #### V [id number], MG, BMP, JOSE, FE and TIBC, RETIC #### [facility] [address] [place] [address] [place] Carbon dioxide, total [Moles /volume] in Serum or PlasmaOrdered By: Jim Randhawa on 07-03-2023 CO2 [Moles/Vol] 20.4 mmol/L Low 21.0-31.0 [facility] Comment on above: Performed By: #### V [id number], MG, BMP, JOSE, FE and TIBC, RETIC #### [facility] [address] Chloride [Moles/volume] in S andrea or PlasmaOrdered By: Jim Randhawa on 07-03-2023 Chloride [Moles/Vol] 106 mmol/L Normal 98-107 [facility] Comment on above: Performed By: #### V [id number], MG, BMP, JOSE, FE and TIBC, RETIC #### [facility] [address] Creatinine [Mass/volume] in Serum or PlasmaOrdered By: Jim Randhawa on 07-03-2023 Creatinine [Mass/Vol] 2.32 mg/dL High 0.60-1.20 [facility] Comment on above: Performed By: #### V [id number], MG, BMP, JOSE, FE and TIBC, RETIC #### [facility] [address] [facility] echo transthoracicon E[facility] echo transthoracic [facility] [place] [address] [place] [address] Echocardiogram Signed Patient: Mabel Moser MR#: [id number] : 1960 Acct:[id number] Age/Sex: 63 / F ADM Date: 06/29/23 Loc: Room: [address] [place] [address] Type: DIS IN Attending Dr: Jim Randhawa [...] FS: 40.8 % Ao root area: 7.8 [id number] ap4: 8.4 cm TAPSE: 2.6 cm EDV(Teich): [...] mmHg RAP systole: 3.0 mmHg Transcribed By: SCV Performed At: 07/03/23 0674 Signed By: Benjie Leach MD 07/03/23 9278 [facility] Ferritin [Mass/volume] in Se rum or PlasmaOrdered By: [place] on 07-03-2023 Ferritin [Mass/Vol] 71.9 ng/mL Normal 11.0-306.8 [facility] Comment on above: Performed By: #### V [id number], MG, BMP, JOSE, FE and TIBC, RETIC #### [facility] [address] Folate [Mass/volume] in Seru m or PlasmaOrdered By: [place] on 07-03-2023 Folate [Mass/Vol] 11.1 ng/mL >5.9 [facility] Comment on above: Folate reference ran ge: >5.9 ng/mlThe WHO technical consultation on folate and vitamin [id number] has determined that folate concentrations lessthan 4 ng/ml are considered deficient. Glucose [Mass/volume] in Ser um or PlasmaOrdered By: Jim Randhawa on 07-03-2023 Glucose [Mass/Vol] 99 mg/dL Normal 70-100 [facility] Comment on above: ADA recommended refe rence rangeRandom Glucose Reference Range is dependent on time and content of last meal. Glucose of more than 200 mg/dL in a nonstressed, ambulatory subject supports the diagnosis of Diabetes Mellitus. Result Comment: [place] Glucose Reference Range is dependent on time and content of last meal. Glucose of more than 200 mg/dL in a nonstressed, ambulatory subject supports the diagnosis of Diabetes Mellitus. ADA recommended reference range Performed By: #### V [id number], MG, BMP, JOSE, FE and TIBC, RETIC #### [facility] [address] Iron [Mass/volume] in Serum or PlasmaOrdered By: [place] on 07-03-2023 Iron [Mass/Vol] 59 ug/dL Normal 50-212 [facility] Comment on above: Performed By: #### V [id number], MG, BMP, JOSE, FE and TIBC, RETIC #### [facility] C[facility] [address] [id number] [facility] Iron and TIBC Profileon % Iron Saturation 22.8 % Normal 20-50 [facility] Comment on above: Performed By: #### V [id number], MG, BMP, JOSE, FE and TIBC, RETIC #### [facility] [address] Total Iron Binding Capacity 259 ug/dL Normal 255-450 [facility] Comment on above: Performed By: #### V [id number], MG, BMP, JOSE, FE and TIBC, RETIC #### [facility] [address] Iron binding capacity [Mass/ volume] in Serum or PlasmaOrdered By: Los Grissom on 07-03-2023 Iron binding capacity [Mass/Vol] 259 ug/dL 255-450 [facility] Iron saturation [Mass Fracti on] in Serum or PlasmaOrdered By: Los Grissom on 07-03-2023 Iron saturation [Mass fraction] 22.8 % 20-50 [facility] Magnesium [Mass/volume] in S andrea or PlasmaOrdered By: Jim Randhawa on 07-03-2023 Magnesium [Mass/Vol] 2.0 mg/dL Normal 1.9-2.7 [facility] Comment on above: Performed By: #### V [id number], MG, BMP, JOSE, FE and TIBC, RETIC #### [facility] [address] [place] [address] No Panel InformationOrdered By: Jim Randhawa on 07-03-2023 Estimated GFR (CKD-EPI) 23.348 mL/Min [facility] Creatinine Clearance (Chem 25.88 [facility] Potassium [Moles/volume] in Serum or PlasmaOrdered By: Jim Randhawa on 07-03-2023 Potassium [Moles/Vol] 3.9 mmol/L Normal 3.5-5.1 [facility] Comment on above: Performed By: #### V [id number], MG, BMP, JOSE, FE and TIBC, RETIC #### [facility] [address] Reticulocyte Counton 024 Reticulocyte Number 0.039 10*6/uL Normal 0.024-0 .08 4 [facility] Comment on above: Result Comment: PERF ORMED BY: [place] [address] PATHOLOGIST TOXICOLOGY SUPERVISOR TANNER GAVIN M.D. Performed By: #### V [id number], MG, BMP, JOSE, FE and TIBC, RETIC #### [address] Reticulocyte Percent 1.5 % Normal 0.5-1.5 [facility] Comment on above: Performed By: #### V [id number], MG, BMP, JOSE, FE and TIBC, RETIC #### [place] [address] [place] Reticulocytes/100 RBC Auto ( Bld)Ordered By: Los Grissom on 07-03-2023 Reticulocytes/100 RBC (Bld) 1.5 % 0.5-1.5 [facility] Serum or plasma anion gap de terminationOrdered By: Jim Randhawa on 07-03-2023 Anion gap [Moles/Vol] 11.5 mmol/L Normal 6.0-15.0 [facility] Comment on above: Performed By: #### V [id number], MG, BMP, JOSE, FE and TIBC, RETIC #### [place] [address] [place] Sodium [Moles/volume] in Ser um or PlasmaOrdered By: Jim Randhawa on 07-03-2023 Sodium [Moles/Vol] 134 mmol/L Low 136-145 [facility] Comment on above: Performed By: #### V [id number], MG, BMP, JOSE, FE and TIBC, RETIC #### [facility] [address] [place] [address] [place] Transferrin [Mass/volume] in Serum or PlasmaOrdered By: Los Grissom on 07-03-2023 Transferrin [Mass/Vol] 185 mg/dL Low 203-362 [facility] Comment on above: Performed By: #### V [id number], MG, BMP, JOSE, FE and TIBC, RETIC #### [facility] [address] [place] [address] [place] Urea nitrogen [Mass/volume] in Serum or PlasmaOrdered By: Jim Randhawa on 07-03-2023 Urea nitrogen [Mass/Vol] 95 mg/dL High 7-25 [facility] Comment on above: Performed By: #### V [id number], MG, BMP, JOSE, FE and TIBC, RETIC #### [address] Vit. B12/Folate Profileon Folate 11.1 ng/mL Normal >5.9 [facility] Comment on above: Result Comment: Sandra te reference range: >5.9 ng/ml The WHO technical consultation on folate and vitamin b12 deficiencies has determined that folate concentrations less than 4 ng/ml are considered deficient. PERFORMED BY: [place] [address] PATHOLOGIST TOXICOLOGY SUPERVISOR TANNER GAVIN M.D. Performed By: #### V [id number], MG, BMP, JOSE, FE and TIBC, RETIC #### [address] Vitamin B12 ser/plasOrdered By: Los Grissom on 07-03-2023 Cobalamin (Vitamin B12) [Mass/Vol] 3564 pg/mL High 180-914 [facility] Comment on above: Performed By: #### V [id number], MG, BMP, JOSE, FE and TIBC, RETIC #### [address] Basic Metabolic Panelon Anion gap [Moles/Vol] 11.0 mmol/L Normal 6.0-15.0 [facility] Comment on above: Performed By: #### V [id number], MG, BMP, JOSE, FE and TIBC, RETIC #### [address] Calcium [Mass/Vol] 8.4 mg/dL Low 8.6-10.3 [facility] Comment on above: Performed By: #### V [id number], MG, BMP, JOSE, FE and TIBC, RETIC #### [facility] [address] Chloride [Moles/Vol] 104 mmol/L Normal 98-107 [facility] Comment on above: Performed By: #### V [id number], MG, BMP, JOSE, FE and TIBC, RETIC #### [facility] [address] CO2 [Moles/Vol] 20.2 mmol/L Low 21.0-31.0 [facility] Comment on above: Performed By: #### V [id number], MG, BMP, JOES, FE and TIBC, RETIC #### [facility] [address] Creatinine [Mass/Vol] 2.31 mg/dL High 0.60-1.20 [facility] Comment on above: Performed By: #### V [id number], MG, BMP, JOSE, FE and TIBC, RETIC #### [facility] [address] Creatinine Clr Calc Pharmacy 26.22 [facility] Comment on above: Performed By: #### V [id number], MG, BMP, JOSE, FE and TIBC, RETIC #### [facility] [address] [place] [address] [place] GFR/1.73 sq M.predicted MDRD (S/P/Bld) [Vol rate/Area] 23.469 mL/min/{1.73_m2} [facility] Comment on above: Performed By: #### V [id number], MG, BMP, JOSE, FE and TIBC, RETIC #### [facility] [address] Glucose [Mass/Vol] 89 mg/dL Normal 70-100 [facility] Comment on above: Result Comment: [facility] Glucose Reference Range is dependent on time and content of last meal. Glucose of more than 200 mg/dL in a nonstressed, ambulatory subject supports the diagnosis of Diabetes Mellitus. ADA recommended reference range Performed By: #### V [id number], MG, BMP, JOSE, FE and TIBC, RETIC #### [address] Potassium [Moles/Vol] 4.2 mmol/L Normal 3.5-5.1 [facility] Comment on above: Performed By: #### V [id number], MG, BMP, JOSE, FE and TIBC, RETIC #### [address] Sodium [Moles/Vol] 131 mmol/L Low 136-145 [facility] Comment on above: Performed By: #### V [id number], MG, BMP, JOSE, FE and TIBC, RETIC #### [address] Urea nitrogen [Mass/Vol] 100 mg/dL High 7-25 [facility] Comment on above: Performed By: #### V [id number], MG, BMP, JOSE, FE and TIBC, RETIC #### [address] Erythrocyte distribution wid th Auto (RBC) [Ratio]Ordered By: Jim Randhawa on 07-02-2023 Erythrocyte distribution width (RBC) [Ratio] 14.2 % 11.9-15.3 [facility] Hematocrit Auto (Bld) [Volum e fraction]Ordered By: Jim Randhawa on 07-02-2023 Hematocrit (Bld) [Volume fraction] 25.0 % 34.0-46.4 [facility] Hemoglobin [Mass/volume] in BloodOrdered By: Jim Randhawa on 07-02-2023 Hemoglobin (Bld) [Mass/Vol] 8.4 g/dL 11.8-15.4 [facility] Hemogram CBC Without Diffon 07-02-2023 Erythrocyte distribution width (RBC) [Ratio] 14.2 % Normal 11.9-15.3 [facility] Comment on above: Performed By: #### V [id number], MG, BMP, JOSE, FE and TIBC, RETIC #### [address] Hematocrit (Bld) [Volume fraction] 25.0 % Low 34.0-46.4 [facility] Comment on above: Performed By: #### V [id number], MG, BMP, JOSE, FE and TIBC, RETIC #### [address] Hemoglobin (Bld) [Mass/Vol] 8.4 g/dL Low 11.8-15.4 [facility] Comment on above: Performed By: #### V [id number], MG, BMP, JOSE, FE and TIBC, RETIC #### [address] MCH (RBC) [Entitic mass] 32.3 pg Normal 24.7-34.3 [facility] Comment on above: Performed By: #### V [id number], MG, BMP, JOSE, FE and TIBC, RETIC #### [address] MCV (RBC) [Entitic vol] 96.6 fL Normal 80-100 [facility] Comment on above: Performed By: #### V [id number], MG, BMP, JOSE, FE and TIBC, RETIC #### [address] Mean Corpuscular HGB Conc 33.4 g/dL Normal 32.0-35.0 [facility] Comment on above: Performed By: #### V [id number], MG, BMP, JOSE, FE and TIBC, RETIC #### [address] Platelet mean volume (Bld) [Entitic vol] 7.7 fL Normal 6.3-10.7 [facility] Comment on above: Result Comment: PERF ORMED BY: [place] [address] PATHOLOGIST TOXICOLOGY SUPERVISOR TANNER GAVIN M.D. Performed By: #### V [id number], MG, BMP, JOSE, FE and TIBC, RETIC #### [address] [address] [place] Platelets (Bld) [#/Vol] 217 10*3/uL Normal 150-450 [facility] Comment on above: Performed By: #### V [id number], MG, BMP, JOSE, FE and TIBC, RETIC #### [facility] [address] RBC (Bld) [#/Vol] 2.59 10*6/uL Low 3.60-5.00 [facility] Comment on above: Performed By: #### V [id number], MG, BMP, JOSE, FE and TIBC, RETIC #### [facility] [address] WBC (Bld) [#/Vol] 6.1 10*3/uL Normal 3.8-11.6 [facility] Comment on above: Performed By: #### V [id number], MG, BMP, JOSE, FE and TIBC, RETIC #### [facility] [address] Leukocytes [#/volume] correc nicol for nucleated erythrocytes in Blood by Automated counOrdered By: Jim Randhawa on 07-02-2023 WBC corrected for nucl RBC Auto (Bld) [#/Vol] 6.1 10*3/uL 3.8-11.6 [facility] MCH Auto (RBC) [Entitic mass ]Ordered By: Jim Randhawa on 07-02-2023 MCH (RBC) [Entitic mass] 32.3 pg 24.7-34.3 [facility] MCHC Auto (RBC) [Mass/Vol]Or dered By: Jim Randhawa on 07-02-2023 MCHC (RBC) [Mass/Vol] 33.4 g/dL 32.0-35.0 [facility] MCV Auto (RBC) [Entitic vol] Ordered By: Jim Randhawa on 07-02-2023 MCV (RBC) [Entitic vol] 96.6 fL 80-100 [facility] Magnesiumon 07-02-2023 Magnesium [Mass/Vol] 2.1 mg/dL Normal 1.9-2.7 [facility] Comment on above: Result Comment: PERF ORMED BY: [place] [address] PATHOLOGIST TOXICOLOGY SUPERVISOR TANNER GAVIN M.D. Performed By: #### V [id number], MG, BMP, JOSE, FE and TIBC, RETIC #### [facility] [address] [place] [address] Platelet mean volume Auto (B ld) [Entitic vol]Ordered By: Jim Randhawa on 07-02-2023 Platelet mean volume (Bld) [Entitic vol] 7.7 fL 6.3-10.7 [facility] Platelets Auto (Bld) [#/Vol] Ordered By: Jim Randhawa on 07-02-2023 Platelets (Bld) [#/Vol] 217 10*3/uL 150-450 [facility] RBC Auto (Bld) [#/Vol]Ordere d By: Jim Randhawa on 07-02-2023 RBC (Bld) [#/Vol] 2.59 10*6/uL 3.60-5.00 [facility] Basic Metabolic Panelon Anion gap [Moles/Vol] 11.9 mmol/L Normal 6.0-15.0 [facility] Comment on above: Order Comment: LINE DRAW Performed By: #### V [id number], MG, BMP, JOSE, FE and TIBC, RETIC #### [facility] [address] [place] [address] Calcium [Mass/Vol] 8.9 mg/dL Normal 8.6-10.3 [facility] Comment on above: Order Comment: LINE DRAW Performed By: #### V [id number], MG, BMP, JOSE, FE and TIBC, RETIC #### [facility] [address] [place] [address] Chloride [Moles/Vol] 108 mmol/L High 98-107 [facility] Comment on above: Order Comment: LINE DRAW Performed By: #### V [id number], MG, BMP, JOSE, FE and TIBC, RETIC #### [facility] [address] CO2 [Moles/Vol] 18.5 mmol/L Low 21.0-31.0 [facility] Comment on above: Order Comment: LINE DRAW Performed By: #### V [id number], MG, BMP, JOSE, FE and TIBC, RETIC #### [facility] [address] Creatinine [Mass/Vol] 2.63 mg/dL Significan t change up 0.60-1.20 [facility] Comment on above: Order Comment: LINE DRAW Performed By: #### V [id number], MG, BMP, JOSE, FE and TIBC, RETIC #### [address] Creatinine Clr Calc Pharmacy 23.09 [facility] Comment on above: Order Comment: LINE DRAW Performed By: #### V [id number], MG, BMP, JOSE, FE and TIBC, RETIC #### [place] [address] [place] GFR/1.73 sq M.predicted MDRD (S/P/Bld) [Vol rate/Area] 20.085 mL/min/{1.73_m2} [facility] Comment on above: Order Comment: LINE DRAW Performed By: #### V [id number], MG, BMP, JOSE, FE and TIBC, RETIC #### [address] Glucose [Mass/Vol] 128 mg/dL High 70-100 [facility] Comment on above: Order Comment: LINE DRAW Result Comment: [place] [facility] Glucose Reference Range is dependent on time and content of last meal. Glucose of more than 200 mg/dL in a nonstressed, ambulatory subject supports the diagnosis of Diabetes Mellitus. ADA recommended reference range Performed By: #### V [id number], MG, BMP, JOSE, FE and TIBC, RETIC #### [address] Potassium [Moles/Vol] 4.4 mmol/L Normal 3.5-5.1 [facility] Comment on above: Order Comment: LINE DRAW Performed By: #### V [id number], MG, BMP, JOSE, FE and TIBC, RETIC #### [address] Sodium [Moles/Vol] 134 mmol/L Low 136-145 [facility] Comment on above: Order Comment: LINE DRAW Performed By: #### V [id number], MG, BMP, JOSE, FE and TIBC, RETIC #### [facility] [address] Urea nitrogen [Mass/Vol] 104 mg/dL High 7-25 [facility] Comment on above: Order Comment: LINE DRAW Performed By: #### V [id number], MG, BMP, JOSE, FE and TIBC, RETIC #### [address] Magnesiumon 07-01-2023 Magnesium [Mass/Vol] 2.3 mg/dL Normal 1.9-2.7 [facility] Comment on above: Order Comment: LINE DRAW Result Comment: PERF ORMED BY: [place] [address] PATHOLOGIST TOXICOLOGY SUPERVISOR TANNER GAVIN M.D. Performed By: #### V [id number], MG, BMP, JOSE, FE and TIBC, RETIC #### [address] Basic Metabolic Panelon Anion gap [Moles/Vol] 14.6 mmol/L Normal 6.0-15.0 [facility] Comment on above: Performed By: #### V [id number], MG, BMP, JOSE, FE and TIBC, RETIC #### [address] Calcium [Mass/Vol] 8.6 mg/dL Normal 8.6-10.3 [facility] Comment on above: Performed By: #### V [id number], MG, BMP, JOSE, FE and TIBC, RETIC #### [facility] [address] Chloride [Moles/Vol] 109 mmol/L High 98-107 [facility] Comment on above: Performed By: #### V [id number], MG, BMP, JOSE, FE and TIBC, RETIC #### [facility] [address] CO2 [Moles/Vol] 15.0 mmol/L Low 21.0-31.0 [facility] Comment on above: Performed By: #### V [id number], MG, BMP, JOSE, FE and TIBC, RETIC #### [facility] [address] Creatinine [Mass/Vol] 3.16 mg/dL High 0.60-1.20 [facility] Comment on above: Performed By: #### V [id number], MG, BMP, JOSE, FE and TIBC, RETIC #### [facility] [address] Creatinine Clr Calc Pharmacy 19.26 [facility] Comment on above: Performed By: #### V [id number], MG, BMP, JOSE, FE and TIBC, RETIC #### [address] GFR/1.73 sq M.predicted MDRD (S/P/Bld) [Vol rate/Area] 16.114 mL/min/{1.73_m2} [facility] Comment on above: Performed By: #### V [id number], MG, BMP, JOSE, FE and TIBC, RETIC #### [facility] [address] Glucose [Mass/Vol] 79 mg/dL Normal 70-100 [facility] Comment on above: Result Comment: [place] Glucose Reference Range is dependent on time and content of last meal. Glucose of more than 200 mg/dL in a nonstressed, ambulatory subject supports the diagnosis of Diabetes Mellitus. ADA recommended reference range Performed By: #### V [id number], MG, BMP, JOSE, FE and TIBC, RETIC #### [address] Potassium [Moles/Vol] 4.6 mmol/L Normal 3.5-5.1 [facility] Comment on above: Performed By: #### V [id number], MG, BMP, JOSE, FE and TIBC, RETIC #### [address] Sodium [Moles/Vol] 134 mmol/L Low 136-145 [facility] Comment on above: Performed By: #### V [id number], MG, BMP, JOSE, FE and TIBC, RETIC #### [address] Urea nitrogen [Mass/Vol] 117 mg/dL High 7-25 [facility] Comment on above: Performed By: #### V [id number], MG, BMP, JOSE, FE and TIBC, RETIC #### [address] Magnesiumon 06-30-2023 Magnesium [Mass/Vol] 2.5 mg/dL Normal 1.9-2.7 [facility] Comment on above: Result Comment: PERF ORMED BY: [place] [address] PATHOLOGIST TOXICOLOGY SUPERVISOR TANNER GAVIN M.D. Performed By: #### V [id number], MG, BMP, JOSE, FE and TIBC, RETIC #### [address] CBC AUTO DIFFon 11-22-2022 BASO # 0.0 103/ul Normal 0.0-0.1 [facility] Comment on above: Performed By: #### C BC ####[facility] [address] [address]DrKianna Airam Tripathi Basophils/100 WBC (Bld) 0.6 % Normal 0.2-2.0 [facility] Comment on above: Performed By: #### C BC ####[facility] [address] [address]Dr. Airam Tripathi EO # 0.1 103/ul Normal 0.0-0.7 [facility] Comment on above: Performed By: #### C BC ####[facility] [address] [address]Dr. Airam Tripathi Eosinophils/100 WBC (Bld) 1.7 % Normal 0.9-7.0 [facility] Comment on above: Performed By: #### C BC ####[facility] [address] [address]Dr. Airam Tripathi Erythrocyte distribution width (RBC) [Ratio] 15.2 % Critically high 11.0-15.0 [facility] Comment on above: Performed By: #### C BC ####[facility] [address] [place], [place] [address]Dr. Airam Tripathi Hematocrit (Bld) [Volume fraction] 31.6 % Critically low 36.0-48.0 [facility] Comment on above: Performed By: #### C BC ####[facility] [address] [place], [place] [address]Dr. Airam Tripathi Hemoglobin (Bld) [Mass/Vol] 9.9 g/dL Critically low 12.0-16.0 [facility] Comment on above: Performed By: #### C BC ####[facility] [address] [address]Dr. Airam Tripathi IG # 0.02 10e3/ul Normal 0.00-0.03 [facility] Comment on above: Performed By: #### C BC ####[facility] [address] [address]Dr. Airam Tripathi IG % 0.4 % Normal 0.0-0.5 [facility] Comment on above: Performed By: #### C BC ####[facility] [address] [place], [place] [address]Dr. Airam Tripathi LYMPH # 0.8 103/ul Critically low 1.2-3.8 [facility] Comment on above: Performed By: #### C BC ####[facility] [address] [id number]. Airam Tripathi Lymphocytes/100 WBC (Bld) 16.9 % Critically low 20.5-60.0 [facility] Comment on above: Performed By: #### C BC ####[facility] [address] [id number]. Airam Deuce MANUAL DIFF REQ NO Normal [facility] Comment on above: Performed By: #### C BC ####[facility] [address] [address]Dr. Airam Deuce MCH (RBC) [Entitic mass] 28.4 pg Normal 26.7-34.0 [facility] Comment on above: Performed By: #### C BC ####[facility] [address] [address]Dr. Airam Deuce MCHC (RBC) [Mass/Vol] 31.3 g/dL Normal 29.9-35.2 [facility] Comment on above: Performed By: #### C BC ####[facility] [address] [place], [place] [address]Dr. Airam Deuce MCV (RBC) [Entitic vol] 90.8 fL Normal 81.0-99.0 [facility] Comment on above: Performed By: #### C BC ####[facility] [address] [place], [place] [address]Dr. Selenaneil Deuce MONO # 0.4 103/ul Normal 0.3-0.8 [facility] Comment on above: Performed By: #### C BC ####[facility] [address] [address]Dr. Selenaneil Tripathi Monocytes/100 WBC (Bld) 8.9 % Normal 1.7-12.0 [facility] Comment on above: Performed By: #### C BC ####[facility] [address] [place], [place] [address]Dr. Airam Tripathi NEUT # 3.4 103/ul Normal 1.4-6.5 [facility] Comment on above: Performed By: #### C BC ####[facility] [address] [address]Dr. Airam Deuce Neutrophils/100 WBC (Bld) 71.5 % Normal 43.0-75.0 [facility] Comment on above: Performed By: #### C BC ####[facility] [address] [place] [id number]. Airam Tripathi Platelet mean volume (Bld) [Entitic vol] 9.4 fL Critically low 9.5-13.5 [facility] Comment on above: Performed By: #### C BC ####[facility] [address] [address]Dr. Airam Tripathi PLT 302 103/ul Normal 150-450 [facility] Comment on above: Performed By: #### C BC ####[facility] [address] [address]Dr. Airam Tripathi RBC 3.48 106/ul Critically low 4.20-5.40 [facility] Comment on above: Performed By: #### C BC ####[facility] [address] [address]Dr. Airam Tripathi WBC 4.7 103/ul Normal 4.0-11.0 [facility] Comment on above: Performed By: #### C BC ####[facility] [address] [address]Dr. Airam Tripathi PROF 14(COMP METB)on 023 Albumin [Mass/Vol] 3.4 g/dL Normal 3.4-5.0 [facility] Comment on above: Performed By: #### C MP ####[facility] [address] [place] [id number]. Airam Tripathi Albumin/Globulin [Mass ratio] 1.0 {ratio} Normal [facility] Comment on above: Performed By: #### C MP ####[facility] [address] [place] [address]Dr. Airam Tripathi ALP [Catalytic activity/Vol] 123 U/L Critically high 46-116 [facility] Comment on above: Performed By: #### C MP ####[facility] [address] [place] [address]Dr. Airam Tripathi ALT [Catalytic activity/Vol] 24 U/L Normal 14-59 [facility] Comment on above: Performed By: #### C MP ####[facility] [address] [place] [address]Dr. iAram Tripathi Anion gap [Moles/Vol] 12.1 mmol/L Normal Th e [facility] Comment on above: Performed By: #### C MP ####[facility] [address] [place] [address]Dr. Airam Tripathi AST [Catalytic activity/Vol] 30 U/L Normal 15-37 [facility] Comment on above: Performed By: #### C MP ####[facility] [address] [place], [place] [address]Dr. Airam Deuce Bilirubin [Mass/Vol] 0.4 mg/dL Normal 0.2-1.0 [facility] Comment on above: Performed By: #### C MP ####[facility] [address] [place], [place] [address]Dr. Airam Deuce Calcium [Mass/Vol] 8.9 mg/dL Normal 8.5-10.1 [facility] Comment on above: Performed By: #### C MP ####[facility] [address] [place], [place] [address]Dr. Airam Deuce Chloride [Moles/Vol] 95 mmol/L Critically low 98-107 [facility] Comment on above: Performed By: #### C MP ####[facility] [address] [place], [place] [address]Dr. Airam Deuce CO2 [Moles/Vol] 28.7 mmol/L Normal 21.0-32.0 [facility] Comment on above: Performed By: #### C MP ####[facility] [address] [place], [place] [address]Dr. Airam Tripathi Creatinine [Mass/Vol] 1.25 mg/dL Critically high 0.55-1.02 [facility] [facility] Comment on above: Performed By: #### C MP ####[facility] [address]eng[address] [place] [address]Dr. Airam Tripathi EGFR-AF LUXEMBOURGER 53 mL/min/1.73m2 Critically low >=60 [facility] Comment on above: Performed By: #### C MP ####[facility] Xhimlcelyc[address] [place] [address]Dr. Airam Tripathi EGFR-NON AF LUXEMBOURGER 44 mL/min/1.73m2 Critically low >=60 [facility] Comment on above: Performed By: #### C MP ####[facility] Dkubxigyjh[address] [place] [address]Dr. Airam Tripathi Globulin (S) [Mass/Vol] 3.5 g/dL Normal [facility] Comment on above: Performed By: #### C MP ####[facility] Gtbjvhrrvz[address] [place], [place] [address]Dr. Airam Tripathi Glucose [Mass/Vol] 89 mg/dL Normal 74-106 [facility] Comment on above: Performed By: #### C MP ####[facility] Nhckulatgc[address] [place], [place] [address]Dr. Airam Deuce Potassium [Moles/Vol] 4.8 mmol/L Normal 3.5-5.1 [facility] Comment on above: Performed By: #### C MP ####[facility] Dtyvykzubw[address] [place], [place] [address]Dr. Airam Tripathi Protein [Mass/Vol] 6.9 g/dL Normal 6.4-8.2 [facility] Comment on above: Performed By: #### C MP ####[facility] [address]rsnk[address] [place] [address]Dr. Airam Tripathi Sodium [Moles/Vol] 131 mmol/L Critically low 136-145 [facility] Comment on above: Performed By: #### C MP ####[facility] Hdnjjwabjr8534[address] [place], [place] [address]Dr. Airam Tripathi Urea nitrogen [Mass/Vol] 37.0 mg/dL Critically high 7.0-18.0 [facility] Comment on above: Performed By: #### C MP ####[facility] Cmfczlkjtg27[address] [place], [place] [address]Dr. Airam Tripathi Urea nitrogen/Creatinine [Mass ratio] 29.6 mg/mg Normal [facility] Comment on above: Performed By: #### C MP ####[facility] Tdbtnzgyrf1612[address] [place], [place] [address]Dr. Airam Tripathi OSMOLALITYon 11-18-2022 Osmolality [Osmolality] 293 mosm/kg Normal 275-295 [facility] Comment on above: Performed By: #### O SMO ####[facility] Ujbswrcmkw6384[address] [place], [place] [address]Dr. Airam Tripathi BNPon 11-16-2022 Natriuretic peptide B (Bld) [Mass/Vol] 1142.0 pg/mL Critically high <=900.0 [facility] Comment on above: Performed By: #### B COPYHOLDER ####[facility] Sedlsxjrvf4144[address] [place], [place] [address]Dr. Airam Tripathi CBC AUTO DIFFon 11-16-2022 BASO # 0.0 103/ul Normal 0.0-0.1 [facility] Comment on above: Performed By: #### C BC ####[facility] Zyejjwabic[address]99[address] [place], [place] [address]Dr. Airam Tripathi Basophils/100 WBC (Bld) 0.3 % Normal 0.2-2.0 [facility] Comment on above: Performed By: #### C BC ####[facility] Qtuozruutp1254[address] [place], [place] [address]Dr. Airam Tripathi EO # 0.3 103/ul Normal 0.0-0.7 [facility] Comment on above: Performed By: #### C BC ####[facility] Ruuozngodk4107[address] [place], [place] [address]Dr. Airam Tripathi Eosinophils/100 WBC (Bld) 4.6 % Normal 0.9-7.0 [facility] Comment on above: Performed By: #### C BC ####[facility] Zqvsihmdbd6270[address] [place], [place] [address]Dr. Airam Tripathi Erythrocyte distribution width (RBC) [Ratio] 16.1 % Critically high 11.0-15.0 [facility] Comment on above: Performed By: #### C BC ####[facility] Qk[address]xokfw[address] [place] [address]Dr. Airam Tripathi Hematocrit (Bld) [Volume fraction] 28.0 % Critically low 36.0-48.0 [facility] Comment on above: Performed By: #### C BC ####[facility] Pmsigqwlil[address] [place] [address]DrKianna Airam Tripathi Hemoglobin (Bld) [Mass/Vol] 8.9 g/dL Critically low 12.0-16.0 [facility] Comment on above: Performed By: #### C BC ####[facility] Sufygcoczg[address] [place], [place] [address]DrKianna Selenaneil Tripathi IG # 0.02 10e3/ul Normal 0.00-0.03 [facility] Comment on above: Performed By: #### C BC ####[facility] Vqzwepjqgc4507[address] [place], [place] [address]Dr. Airam Tripathi IG % 0.3 % Normal 0.0-0.5 [facility] Comment on above: Performed By: #### C BC ####[facility] Udqnhjjzyy1074[address] [place], [place] [address]DrKianna iAram Deuce LYMPH # 1.5 103/ul Normal 1.2-3.8 [facility] Comment on above: Performed By: #### C BC ####[facility] Dlaqlacxzl2844[address] [place], [place] [address]DrKianna Tripathi Lymphocytes/100 WBC (Bld) 24.2 % Normal 20.5-60.0 [facility] Comment on above: Performed By: #### C BC ####[facility] Jeuumiiaep[address] [place], [place] [address]DrKianna Selenaneil Tripathi MANUAL DIFF REQ NO Normal [facility] Comment on above: Performed By: #### C BC ####[facility] Wahixuguqw9725[address] [place], [place] [address]DrKianna Tripathi MCH (RBC) [Entitic mass] 29.3 pg Normal 26.7-34.0 [facility] Comment on above: Performed By: #### C BC ####[facility] Vjzjp[address]kyg[address] [place] [id number]. Selenaneil Tripathi MCHC (RBC) [Mass/Vol] 31.8 g/dL Normal 29.9-35.2 [facility] Comment on above: Performed By: #### C BC ####[facility] Igdtyggman[address] [place] [id number]. Airam Tripathi MCV (RBC) [Entitic vol] 92.1 fL Normal 81.0-99.0 [facility] Comment on above: Performed By: #### C BC ####[facility] Ihcxqsfmsy9065[address] [place], [place] [address]Dr. Airam Tripathi MONO # 0.6 103/ul Normal 0.3-0.8 [facility] Comment on above: Performed By: #### C BC ####[facility] Afouncfguw084[address] [place], [place] [address]Dr. Airam Tripathi Monocytes/100 WBC (Bld) 10.0 % Normal 1.7-12.0 [facility] Comment on above: Performed By: #### C BC ####[facility] Mmhxvedvoy5387[address] [place], [place] [address]Dr. Airam Tripathi NEUT # 3.7 103/ul Normal 1.4-6.5 [facility] Comment on above: Performed By: #### C BC ####[facility] Dtiyrpwcmm6201[address] [place], [place] [address]Dr. Airam Tripathi Neutrophils/100 WBC (Bld) 60.6 % Normal 43.0-75.0 [facility] Comment on above: Performed By: #### C BC ####[facility] Aoidpsbcqq6794[address] [place], [place] [address]Dr. Airam Tripathi Platelet mean volume (Bld) [Entitic vol] 9.1 fL Critically low 9.5-13.5 [facility] Comment on above: Performed By: #### C BC ####[facility] Dzhbxxcpww764[address] [place], [place] [address]Dr. Airam Tripathi PLT 242 103/ul Normal 150-450 [facility] Comment on above: Performed By: #### C BC ####[facility] Zexsytecjy[address] [place] [address]Dr. Airam Tripathi RBC 3.04 106/ul Critically low 4.20-5.40 [facility] Comment on above: Performed By: #### C BC ####[facility] Zcfykiedre[address] [place] [address]Dr. Airam Tripathi WBC 6.1 103/ul Normal 4.0-11.0 [facility] Comment on above: Performed By: #### C BC ####[facility] Beshnxxwcj[address] [place] [address]Dr. Airam Tripathi CT STROKE HEAD WOon 11-17-19 CT STROKE HEAD WO Normal [facility] PROF CHEM 8 (BAS METB)on Anion gap [Moles/Vol] 9.8 mmol/L Normal [facility] Comment on above: Performed By: #### B GERTRUDE HSTROPN ####[facility] Ynlvkkzmre[address] [place], [place] [address]Dr. Airam Tripathi Calcium [Mass/Vol] 8.4 mg/dL Critically low 8.5-10.1 [facility] Comment on above: Performed By: #### B GERTRUDE HSTROPN ####[facility] Elezidplxt[address] [place] [address]Dr. Airam Tripathi Chloride [Moles/Vol] 99 mmol/L Normal 98-107 [facility] Comment on above: Performed By: #### B GERTRUDE HSTROPN ####[facility] G[address]zlpetr[address] [place] [address]Dr. Airam Tripathi CO2 [Moles/Vol] 28.3 mmol/L Normal 21.0-32.0 [facility] Comment on above: Performed By: #### B GERTRUDE HSTROPN ####[facility] Qvnwvatgeu[address] [place] [address]Dr. Selenaneil Tripathi Creatinine [Mass/Vol] 1.40 mg/dL Critically high 0.55-1.02 [facility] Comment on above: Performed By: #### B MP, HSTROPN ####[facility] Os[address]uspmrs[address] [place] [address]Dr. iAram Tripathi EGFR-AF LUXEMBOURGER 46 mL/min/1.73m2 Critically low >=60 [facility] Comment on above: Performed By: #### B GERTRUDE, HSTROPN ####[facility] Ydpvohxeut[address] [place] [address]Dr. Airam Tripathi EGFR-NON AF LUXEMBOURGER 38 mL/min/1.73m2 Critically low >=60 [facility] Comment on above: Performed By: #### B GERTRUDE, HSTROPN ####[facility] F[address]ysv[address]xe[address] [place] [address]Dr. Airam Deuce Glucose [Mass/Vol] 88 mg/dL Normal 74-106 [facility] Comment on above: Performed By: #### B GERTRUDE, HSTROPN ####[facility] Gxhyjxqtbu[address] [place] [address]Dr. Airam Tripathi Potassium [Moles/Vol] 5.1 mmol/L Normal 3.5-5.1 [facility] Comment on above: Performed By: #### B GERTRUDE, HSTROPN ####[facility] Lyarxhfqlk[address]26[address] [place], [place] [address]Dr. Airam Deuce Sodium [Moles/Vol] 132 mmol/L Critically low 136-145 Th [facility] Comment on above: Performed By: #### B GERTRUDE, HSTROPN ####[facility] H[address]zfmjtyn[address] [place] [address]Dr. Airam Tripathi Urea nitrogen [Mass/Vol] 56.0 mg/dL Critically high 7.0-18.0 [facility] Comment on above: Performed By: #### B GERTRUDE, HSTROPN ####[facility] Igtccabhwk7390[address] [place], [place] [address]Dr. Airam Tripathi Urea nitrogen/Creatinine [Mass ratio] 40.0 mg/mg Normal [facility] Comment on above: Performed By: #### B GERTRUDE, HSTROPN ####[facility] Xxijdzkqce[address] [place] [address]Dr. Airam Tripathi TROPONIN, HIGH SENSITIVITYon 05-24-2023 HSTROP 9.9 pg/mL Normal 4.0-51.3 [facility] Comment on above: Result Comment: CUT- OFF POINTS HAVE BEEN ESTABLISHED BASED ON THE FOURTH UNIVERSAL DEFINITIONS OF MYOCARDIALINFARCTION. THE UPPER REFERENCE LIMIT (URL) OF TROPONIN, DEFINED THE 99TH PERCENTILE OFcTnI DISTRIBUTION IN A REFERENCE POPULATION, HAS BEEN CONFIRMED THE DECISION THRESHOLDFOR [place] DIAGNOSIS. Performed By: #### B MP, HSTROPN ####[facility] Imrla[address]ourt[address] [place] [address]Dr. Airam Deuce XR CHEST 1 Von 11-16-2022 XR CHEST 1 V Normal [facility] CBC AUTO DIFFon 11-11-2022 BASO # 0.0 103/ul Normal 0.0-0.1 [facility] Comment on above: Performed By: #### C BC ####[facility] Hbgkyfmofl2118[address] [place], [place] [address]Dr. Selenaneil Tripathi Basophils/100 WBC (Bld) 0.4 % Normal 0.2-2.0 [facility] Comment on above: Performed By: #### C BC ####[facility] Xcigfxefza0526[address] [place], [place] [address]Dr. Airam Deuce EO # 0.4 103/ul Normal 0.0-0.7 [facility] Comment on above: Performed By: #### C BC ####[facility] Acvwqmznka0412[address] [place], [place] [address]Dr. Selenaneil Tripathi Eosinophils/100 WBC (Bld) 4.6 % Normal 0.9-7.0 [facility] Comment on above: Performed By: #### C BC ####[facility] Yppebvvzlg[address] [place] [address]Dr. Airam Tripathi Erythrocyte distribution width (RBC) [Ratio] 15.8 % Critically high 11.0-15.0 [facility] Comment on above: Performed By: #### C BC ####[facility] Vpediqujow4090[address] [place], [place] [address]Dr. Airam Tripathi Hematocrit (Bld) [Volume fraction] 30.3 % Critically low 36.0-48.0 [facility] Comment on above: Performed By: #### C BC ####[facility] Nvhsqwygkj[address] [place] [address]Dr. Airam Tripathi Hemoglobin (Bld) [Mass/Vol] 9.3 g/dL Critically low 12.0-16.0 [facility] Comment on above: Performed By: #### C BC ####[facility] Gqafzwjbec[address] [place] [address]Dr. Airam Tripathi IG # 0.03 10e3/ul Normal 0.00-0.03 [facility] Comment on above: Performed By: #### C BC ####[facility] Ynuidakjgn9680[address] [place], [place] [address]Dr. Airam Tripathi IG % 0.4 % Normal 0.0-0.5 [facility] Comment on above: Performed By: #### C BC ####[facility] Emdvfkszxe418[address] [place], [place] [address]Dr. Airam Tripathi LYMPH # 2.0 103/ul Normal 1.2-3.8 [facility] Comment on above: Performed By: #### C BC ####[facility] Gbkjobopyo[address] [place], [place] [address]Dr. Airam Tripathi Lymphocytes/100 WBC (Bld) 24.5 % Normal 20.5-60.0 [facility] Comment on above: Performed By: #### C BC ####[facility] Eiagvvhgql029[address] [place], [place] [address]Dr. Airam Tripathi MANUAL DIFF REQ NO Normal [facility] Comment on above: Performed By: #### C BC ####[facility] Jcrtkrmocs[address] [place], [place] [address]Dr. Airam Tripathi MCH (RBC) [Entitic mass] 28.9 pg Normal 26.7-34.0 [facility] Comment on above: Performed By: #### C BC ####[facility] Zktcwwluii346[address] [place], [place] [address]Dr. Airam Tripathi MCHC (RBC) [Mass/Vol] 30.7 g/dL Normal 29.9-35.2 [facility] Comment on above: Performed By: #### C BC ####[facility] L[address]rojepib[address] [place] [id number]. Airam Tripathi MCV (RBC) [Entitic vol] 94.1 fL Normal 81.0-99.0 [facility] Comment on above: Performed By: #### C BC ####[facility] Ozhdzkhuyh[address] [place] [id number]. Airam Tripathi MONO # 0.7 103/ul Normal 0.3-0.8 [facility] Comment on above: Performed By: #### C BC ####[facility] Hgwekradlk3165 [place] [id number]. Airam Deuce Monocytes/100 WBC (Bld) 8.3 % Normal 1.7-12.0 [facility] Comment on above: Performed By: #### C BC ####[facility] Pqadztcchr[address] [place], [place] [address]Dr. Airam Tripathi NEUT # 5.0 103/ul Normal 1.4-6.5 [facility] Comment on above: Performed By: #### C BC ####[facility] Ezgaflyhfk[address] [place], [place] [address]Dr. Airam Deuce Neutrophils/100 WBC (Bld) 61.8 % Normal 43.0-75.0 [facility] Comment on above: Performed By: #### C BC ####[facility] Norblvceqs[address] [place], [place] [address]Dr. Airam Deuce Platelet mean volume (Bld) [Entitic vol] 9.4 fL Critically low 9.5-13.5 [facility] Comment on above: Performed By: #### C BC ####[facility] Ercqtfucun[address] [place], [place] [address]Dr. Airam Deuce PLT 270 103/ul Normal 150-450 [facility] Comment on above: Performed By: #### C BC ####[facility] Zqqlaazlwu[address] [place] [address]Dr. Airam Tripathi RBC 3.22 106/ul Critically low 4.20-5.40 [facility] Comment on above: Performed By: #### C BC ####[facility] Iagrkpdwoy[address] [place] [address]Dr. Airam Tripathi WBC 8.1 103/ul Normal 4.0-11.0 [facility] Comment on above: Performed By: #### C BC ####[facility] Sgnmtditya[address] [place] [address]Dr. Airam Tripathi PROF 14(COMP METB)on 023 Albumin [Mass/Vol] 3.2 g/dL Critically low 3.4-5.0 [facility] Comment on above: Performed By: #### C MP ####[facility] Szsasxpqah8832[address] [place], [place] [address]Dr. Airam Tripathi Albumin/Globulin [Mass ratio] 1.0 {ratio} Normal [facility] Comment on above: Performed By: #### C MP ####[facility] Dowanxaebm364[address] [place], [place] [address]Dr. Airam Tripathi ALP [Catalytic activity/Vol] 108 U/L Normal 46-116 [facility] Comment on above: Performed By: #### C MP ####[facility] Vnuuvjrhtv[address] [place], [place] [address]Dr. Airam Tripathi ALT [Catalytic activity/Vol] 30 U/L Normal 14-59 [facility] Comment on above: Performed By: #### C MP ####[facility] Giasvoabto397[address] [place], [place] [address]Dr. Airam Tripathi Anion gap [Moles/Vol] 12.8 mmol/L Normal [facility] Comment on above: Performed By: #### C MP ####[facility] Gyqonkocsf[address]107[address] [place], [place] [address]Dr. Airam Tripathi AST [Catalytic activity/Vol] 33 U/L Normal 15-37 [facility] Comment on above: Performed By: #### C MP ####[facility] Rdhwkrtvpf[address] [place], [place] [address]Dr. Airam Tripathi Bilirubin [Mass/Vol] 0.2 mg/dL Normal 0.2-1.0 [facility] Comment on above: Performed By: #### C MP ####[facility] Myyslgyxak[address] [place] [address]Dr. Airam Tripathi Calcium [Mass/Vol] 8.3 mg/dL Critically low 8.5-10.1 Th [facility] Comment on above: Performed By: #### C MP ####[facility] Wdhliigihx[address] [place] [address]Dr. Airam Tripathi Chloride [Moles/Vol] 99 mmol/L Normal 98-107 [facility] Comment on above: Performed By: #### C MP ####[facility] Fcvqhnnmpk[address] [place] [address]Dr. Airam Tripathi CO2 [Moles/Vol] 27.6 mmol/L Normal 21.0-32.0 [facility] Comment on above: Performed By: #### C MP ####[facility] Dcyjdnruxe0213[address] [place], [place] [address]Dr. Airam Tripathi Creatinine [Mass/Vol] 2.01 mg/dL Critically high 0.55-1.02 [facility] Comment on above: Performed By: #### C MP ####[facility] Ouqfnxejmh7860[address] [place], [place] [address]Dr. Airam Tripathi EGFR-AF LUXEMBOURGER 31 mL/min/1.73m2 Critically low >=60 [facility] Comment on above: Performed By: #### C MP ####[facility] Kllclyjnxs3232[address] [place], [place] [address]Dr. Airam Tripathi EGFR-NON AF LUXEMBOURGER 25 mL/min/1.73m2 Critically low >=60 [facility] Comment on above: Performed By: #### C MP ####[facility] Wpctgyuvgd3365[address] [place], [place] [address]Dr. Airam Tripathi Globulin (S) [Mass/Vol] 3.2 g/dL Normal [facility] Comment on above: Performed By: #### C MP ####[facility] Xbjlrchxdn086[address] [place], [place] [address]Dr. Airam Deuce Glucose [Mass/Vol] 158 mg/dL Critically high 74-106 [facility] Comment on above: Performed By: #### C MP ####[facility] Epleikeoeb[address] [place] [address]Dr. Selenaneil Deuce Potassium [Moles/Vol] 5.4 mmol/L Critically high 3.5-5.1 [facility] Comment on above: Performed By: #### C MP ####[facility] Groaekhion[address] [place] [address]Dr. Airam Tripathi Protein [Mass/Vol] 6.4 g/dL Normal 6.4-8.2 [facility] Comment on above: Performed By: #### C MP ####[facility] Vcvogkwmsy22[address] [place] [address]Dr. Airam Tripathi Sodium [Moles/Vol] 134 mmol/L Critically low 136-145 Th [facility] Comment on above: Performed By: #### C MP ####[facility] Vnzjsibmah500[address] [place], [place] [address]Dr. Airam Tripathi Urea nitrogen [Mass/Vol] 52.0 mg/dL Critically high 7.0-18.0 [facility] Comment on above: Performed By: #### C MP ####[facility] Bgzujpquaf5680[address] [place], [place] [address]Dr. Airam Tripathi Urea nitrogen/Creatinine [Mass ratio] 25.9 mg/mg Normal [facility] Comment on above: Performed By: #### C MP ####[facility] Ncookxuzdz5290[address] [place], [place] [address]Dr. Airam Tripathi OSMOLALITYon 11-06-2022 Osmolality [Osmolality] 261 mosm/kg Critically low 275-295 [facility] Comment on above: Performed By: #### O SMO ####[facility] Dukqmbsnmh8826[address] [place], [place] [address]Dr. Airam Tripathi XR HIPS GUMARO 3_4V WO PELVISon 11-04-2022 XR HIPS GUMARO 3_4V WO PELVIS Normal [facility] XR KNEE LT 4V or >on 023 XR KNEE LT 4V or > Normal [facility] BNPon 11-03-2022 Natriuretic peptide B (Bld) [Mass/Vol] 1168.0 pg/mL Critically high <=900.0 [facility] Comment on above: Performed By: #### B COPYHOLDER, BMP ####[facility] Qjcpitkuyl[address] [place] [address]Dr. Airam Tripathi CBC AUTO DIFFon 11-03-2022 BASO # 0.0 103/ul Normal 0.0-0.1 [facility] Comment on above: Performed By: #### C BC ####[facility] Mwhxxrmcsl457[address] [place], [place] [address]Dr. Airam Deuce Basophils/100 WBC (Bld) 0.3 % Normal 0.2-2.0 [facility] Comment on above: Performed By: #### C BC ####[facility] Nhknlwbmje044[address] [place], [place] [address]Dr. Airam Tripathi EO # 0.2 103/ul Normal 0.0-0.7 [facility] Comment on above: Performed By: #### C BC ####[facility] Iyitkpdkrg2208[address] [place], [place] [address]Dr. Airam Deuce Eosinophils/100 WBC (Bld) 1.9 % Normal 0.9-7.0 [facility] Comment on above: Performed By: #### C BC ####[facility] Tzrypipdlc[address] [place], [place] [address]Dr. Airam Tripathi Erythrocyte distribution width (RBC) [Ratio] 15.2 % Critically high 11.0-15.0 [facility] Comment on above: Performed By: #### C BC ####[facility] Mnxmjynbut4[address] [place], [place] [address]Dr. Airam Tripathi Hematocrit (Bld) [Volume fraction] 34.3 % Critically low 36.0-48.0 [facility] Comment on above: Performed By: #### C BC ####[facility] Hqzveqptap25[address] [place], [place] [address]Dr. Airam Tripathi Hemoglobin (Bld) [Mass/Vol] 11.0 g/dL Critically low 12.0-16.0 [facility] Comment on above: Performed By: #### C BC ####[facility] Lmehfjymin[address] [place] [address]Dr. Airam Tripathi IG # 0.06 10e3/ul Critically high 0.00-0.03 [facility] Comment on above: Performed By: #### C BC ####[facility] Uawxrsizhj[address] [place], [place] [address]Dr. Airam Tripathi IG % 0.5 % Normal 0.0-0.5 [facility] Comment on above: Performed By: #### C BC ####[facility] [facility] [address] [place], [place] [address]DrKianna Tripathi LYMPH # 2.3 103/ul Normal 1.2-3.8 [facility] Comment on above: Performed By: #### C BC ####[facility] Enfsyhbhoo[address] [place], [place] [address]DrKianna Tripathi Lymphocytes/100 WBC (Bld) 20.4 % Critically low 20.5-60.0 [facility] Comment on above: Performed By: #### C BC ####[facility] Gezfglnzvi[address] [place], [place] [address]DrKianna Tripathi MANUAL DIFF REQ NO Normal [facility] Comment on above: Performed By: #### C BC ####[facility] Thajdhixtg7[address] [place], [place] [address]Dr. Selenaneil Tripathi MCH (RBC) [Entitic mass] 28.7 pg Normal 26.7-34.0 [facility] Comment on above: Performed By: #### C BC ####[facility] Smllfcduks[address] [place], [place] [address]DrKianna Seleanneil Tripathi MCHC (RBC) [Mass/Vol] 32.1 g/dL Normal 29.9-35.2 [facility] Comment on above: Performed By: #### C BC ####[facility] Otlfnamekb[address] [place], [place] [address]DrKianna Tripathi MCV (RBC) [Entitic vol] 89.6 fL Normal 81.0-99.0 [facility] Comment on above: Performed By: #### C BC ####[facility] Iriompttry[address] [place], [place] [address]DrKianna Tripathi MONO # 0.9 103/ul Critically high 0.3-0.8 [facility] Comment on above: Performed By: #### C BC ####[facility] [address] [place] [address]Dr. Airam Tripathi Monocytes/100 WBC (Bld) 8.3 % Normal 1.7-12.0 [facility] Comment on above: Performed By: #### C BC ####[facility] Sehrijqdsx[address] [place] [address]Dr. Airam Tripathi NEUT # 7.8 103/ul Critically high 1.4-6.5 [facility] Comment on above: Performed By: #### C BC ####[facility] Srtmxhrpii3[address] [place] [address]Dr. Airam Tripathi Neutrophils/100 WBC (Bld) 68.6 % Normal 43.0-75.0 [facility] Comment on above: Performed By: #### C BC ####[facility] Edikbrttau2047 [place] [address]Dr. Airam Tripathi Platelet mean volume (Bld) [Entitic vol] 8.9 fL Critically low 9.5-13.5 [facility] Comment on above: Performed By: #### C BC ####[facility] Gupcqghtke[address] [place] [address]Dr. Airam Tripathi PLT 323 103/ul Normal 150-450 [facility] Comment on above: Performed By: #### C BC ####[facility] Soqsugbtfm1170 [place] [address]Dr. Airam Tripathi RBC 3.83 106/ul Critically low 4.20-5.40 [facility] Comment on above: Performed By: #### C BC ####[facility] Wnyfurgujn[address] [place], [place] [address]Dr. Airam Tripathi WBC 11.4 103/ul Critically high 4.0-11.0 [facility] Comment on above: Performed By: #### C BC ####[facility] Iprdpliivr[address] [place], [place] [address]Dr. Airam Tripathi BASO # 0.0 103/ul Normal 0.0-0.1 [facility] Comment on above: Performed By: #### C BC ####[facility] Blzsgzffor6418[address] [place], [place] [address]Dr. Selenaneil Tripathi Basophils/100 WBC (Bld) 0.2 % Normal 0.2-2.0 [facility] Comment on above: Performed By: #### C BC ####[facility] Uvvuyxenkf100[address] [place], [place] [address]Dr. Selenaneil Deuce EO # 0.1 103/ul Normal 0.0-0.7 [facility] Comment on above: Performed By: #### C BC ####[facility] Rsoesgbeih[address] [place], [place] [address]Dr. Airam Tripathi Eosinophils/100 WBC (Bld) 0.7 % Critically low 0.9-7.0 [facility] Comment on above: Performed By: #### C BC ####[facility] Ysnmlvpmfj324[address] [place], [place] [address]Dr. Airam Deuce Erythrocyte distribution width (RBC) [Ratio] 15.4 % Critically high 11.0-15.0 [facility] Comment on above: Performed By: #### C BC ####[facility] Fupanfgbjs624[address] [place], [place] [address]Dr. Airam Deuce Hematocrit (Bld) [Volume fraction] 33.6 % Critically low 36.0-48.0 [facility] Comment on above: Performed By: #### C BC ####[facility] Bvastmquio[address] [place], [place] [address]Dr. Airam Deuce Hemoglobin (Bld) [Mass/Vol] 10.9 g/dL Critically low 12.0-16.0 [facility] Comment on above: Performed By: #### C BC ####[facility] Ofuiacxxra28[address] [place], [place] [address]Dr. Airam Tripathi IG # 0.04 10e3/ul Critically high 0.00-0.03 [facility] Comment on above: Performed By: #### C BC ####[facility] Ylyjsafhfw[address] [place], [place] [address]Dr. Airam Tripathi IG % 0.5 % Normal 0.0-0.5 [facility] Comment on above: Performed By: #### C BC ####[facility] Nvypgnsrjf22[address] [place] [address]DrKianna Airam Deuce LYMPH # 1.1 103/ul Critically low 1.2-3.8 [facility] Comment on above: Performed By: #### C BC ####[facility] Zkjgzkdrqg8[address] [place] [address]DrKianna Selenaneil Tripathi Lymphocytes/100 WBC (Bld) 13.3 % Critically low 20.5-60.0 [facility] Comment on above: Performed By: #### C BC ####[facility] Wdfecxchqp[address] [place] [address]DrKianna Selenaneil Tripathi MANUAL DIFF REQ NO Normal [facility] Comment on above: Performed By: #### C BC ####[facility] Ddhequkjph7[address] [place] [address]DrKianna Airam Deuce MCH (RBC) [Entitic mass] 29.1 pg Normal 26.7-34.0 [facility] Comment on above: Performed By: #### C BC ####[facility] Rfyuxlhxal6065 [place] [address]DrKianna Airam Deuce MCHC (RBC) [Mass/Vol] 32.4 g/dL Normal 29.9-35.2 [facility] Comment on above: Performed By: #### C BC ####[facility] Xihrgewtxi8295 [place] [address]DrKianna Selenaneil Tripathi MCV (RBC) [Entitic vol] 89.6 fL Normal 81.0-99.0 [facility] Comment on above: Performed By: #### C BC ####[facility] Gpgbnfbfng55[address] [place] [address]DrKianna Tripathi MONO # 0.5 103/ul Normal 0.3-0.8 [facility] Comment on above: Performed By: #### C BC ####[facility] Mnvllgztyv9056 [place] [address]DrKianna Tripathi Monocytes/100 WBC (Bld) 6.4 % Normal 1.7-12.0 [facility] Comment on above: Performed By: #### C BC ####[facility] Bslqqylsux4[address] [place] [address]Dr. Airam Tripathi NEUT # 6.5 103/ul Normal 1.4-6.5 [facility] Comment on above: Performed By: #### C BC ####[facility] Tqfhopjcpj66[address] [place] [address]Dr. Airam Tripathi Neutrophils/100 WBC (Bld) 78.9 % Critically high 43.0-75.0 [facility] Comment on above: Performed By: #### C BC ####[facility] Wiydtmarno[address] [place] [address]Dr. Airam Tripathi Platelet mean volume (Bld) [Entitic vol] 9.4 fL Critically low 9.5-13.5 [facility] Comment on above: Performed By: #### C BC ####[facility] Baeenoibdm9[address] [place] [id number]. Airam Tripathi PLT 314 103/ul Normal 150-450 [facility] Comment on above: Performed By: #### C BC ####[facility] Mc[address]qt[address] [place], [place] [address]Dr. Airam Tripathi RBC 3.75 106/ul Critically low 4.20-5.40 [facility] Comment on above: Performed By: #### C BC ####[facility] Z[address]qkrthz[address] [place], [place] [address]Dr. Airam Tripathi WBC 8.3 103/ul Normal 4.0-11.0 [facility] Comment on above: Performed By: #### C BC ####[facility] Geoiigsman[address] [place], [place] [address]Dr. Airam Tripathi CT HEAD WO CONon 11-03-2022 CT HEAD WO CON Normal [facility] PROF 14(COMP METB)on 023 Albumin [Mass/Vol] 3.2 g/dL Critically low 3.4-5.0 [facility] Comment on above: Performed By: #### C MP ####[facility] Mcwkxuwuvr9[address] [place] [address]Dr. Airam Deuce Albumin/Globulin [Mass ratio] 0.9 {ratio} Normal [facility] Comment on above: Performed By: #### C MP ####[facility] Qxpecsoghq5775 [place] [id number]. Selenaenil Deuce ALP [Catalytic activity/Vol] 109 U/L Normal 46-116 [facility] Comment on above: Performed By: #### C MP ####[facility] Cquxqratin47[address] [place], [place] [address]Dr. Airam Deuce ALT [Catalytic activity/Vol] 25 U/L Normal 14-59 [facility] Comment on above: Performed By: #### C MP ####[facility] Zyphrssscu9[address] [place], [place] [address]Dr. Airam Tripathi Anion gap [Moles/Vol] 10.9 mmol/L Normal [facility] Comment on above: Performed By: #### C MP ####[facility] Dnjmmvbhss1674[address] [place], [place] [address]Dr. Airam Deuce AST [Catalytic activity/Vol] 24 U/L Normal 15-37 [facility] Comment on above: Performed By: #### C MP ####[facility] Vrvtukqjdq3957[address] [place], [place] [address]Dr. Selenaneil Deuce Bilirubin [Mass/Vol] 0.3 mg/dL Normal 0.2-1.0 [facility] Comment on above: Performed By: #### C MP ####[facility] Csywcxpxhr[address] [place], [place] [address]Dr. Airam Tripathi Calcium [Mass/Vol] 8.6 mg/dL Normal 8.5-10.1 [facility] Comment on above: Performed By: #### C MP ####[facility] Acaepscrmz9935[address] [place], [place] [address]Dr. Airam Tripathi Chloride [Moles/Vol] 95 mmol/L Critically low 98-107 [facility] Comment on above: Performed By: #### C MP ####[facility] Aqjocrgjsv7943 [place] [address]Dr. Airam Tripathi CO2 [Moles/Vol] 27.8 mmol/L Normal 21.0-32.0 [facility] Comment on above: Performed By: #### C MP ####[facility] Cetwrsrxrn8026 [place] [address]Dr. Airam Tripathi Creatinine [Mass/Vol] 1.07 mg/dL Critically high 0.55-1.02 [facility] Comment on above: Performed By: #### C MP ####[facility] Oarcgfspgm5[address] [place] [address]Dr. Airam Tripathi EGFR-AF LUXEMBOURGER >60 Normal >=60 [facility] Comment on above: Performed By: #### C MP ####[facility] Jhndlboebg7[address] [place] [address]Dr. Airam Deuce EGFR-NON AF LUXEMBOURGER 52 mL/min/1.73m2 Critically low >=60 [facility] Comment on above: Performed By: #### C MP ####[facility] Gzfaoyuwpf12[address] [place], [place] [address]Dr. Airam Tripathi Globulin (S) [Mass/Vol] 3.5 g/dL Normal [facility] Comment on above: Performed By: #### C MP ####[facility] Wncpphijij[address] [place], [place] [address]Dr. Airam Tripathi Glucose [Mass/Vol] 86 mg/dL Normal 74-106 [facility] Comment on above: Performed By: #### C MP ####[facility] Zrjjobfkbj9[address] [place], [place] [address]Dr. Airam Tripathi Potassium [Moles/Vol] 4.7 mmol/L Normal 3.5-5.1 [facility] Comment on above: Performed By: #### C MP ####[facility] Tezptdliae92[address] [place], [place] [address]Dr. Airam Tripathi Protein [Mass/Vol] 6.7 g/dL Normal 6.4-8.2 [facility] Comment on above: Performed By: #### C MP ####[facility] Lxpvzdazjq4[address] [place], [place] [address]Dr. Airam Tripathi Sodium [Moles/Vol] 129 mmol/L Critically low 136-145 [facility] Comment on above: Performed By: #### C MP ####[facility] Eqhrzfzkfz24[address] [place] [address]Dr. Selenaneil Deuce Urea nitrogen [Mass/Vol] 19.0 mg/dL Critically high 7.0-18.0 [facility] Comment on above: Performed By: #### C MP ####[facility] Fztzjhaoos[address] [place] [address]Dr. Airam Tripathi Urea nitrogen/Creatinine [Mass ratio] 17.8 mg/mg Normal [facility] Comment on above: Performed By: #### C MP ####[facility] Aocjlobliy[address] [place] [address]Dr. Airam Tripathi PROF CHEM 8 (BAS METB)on Anion gap [Moles/Vol] 9.0 mmol/L Normal [facility] Comment on above: Performed By: #### B COPYHOLDER, BMP ####[facility] Wingpsfkzk[address] [place] [address]Dr. Airam Tripathi Calcium [Mass/Vol] 8.5 mg/dL Normal 8.5-10.1 [facility] Comment on above: Performed By: #### B COPYHOLDER, BMP ####[facility] Uycdsknbyp40[address] [place] [address]Dr. Airam Tripathi Chloride [Moles/Vol] 93 mmol/L Critically low 98-107 [facility] Comment on above: Performed By: #### B COPYHOLDER, BMP ####[facility] Ivpigllpjf026[address] [place] [address]Dr. Airam Tripathi CO2 [Moles/Vol] 28.1 mmol/L Normal 21.0-32.0 [facility] Comment on above: Performed By: #### B COPYHOLDER, BMP ####[facility] Nuqddjiidu[address] [place] [address]Dr. Airam Tripathi Creatinine [Mass/Vol] 1.17 mg/dL Critically high 0.55-1.02 [facility] Comment on above: Performed By: #### B COPYHOLDER, BMP ####[facility] Koigspcdjh[address] [place] [address]Dr. Airam Tripathi EGFR-AF LUXEMBOURGER 57 mL/min/1.73m2 Critically low >=60 [facility] Comment on above: Performed By: #### B COPYHOLDER, BMP ####[facility] Qphjxuvsyf36[address] [place] [address]Dr. Airam Tripathi EGFR-NON AF LUXEMBOURGER 47 mL/min/1.73m2 Critically low >=60 [facility] Comment on above: Performed By: #### B COPYHOLDER, BMP ####[facility] Rgufljclva5072 [place] [id number]. Selenaneil Deuce Glucose [Mass/Vol] 107 mg/dL Critically high 74-106 T [facility] Comment on above: Performed By: #### B COPYHOLDER, BMP ####[facility] Raszraithl[address] [place] [id number]. Airam Tripathi Potassium [Moles/Vol] 4.1 mmol/L Normal 3.5-5.1 [facility] Comment on above: Performed By: #### B COPYHOLDER, BMP ####[facility] Uycbimobzh[address] [place], [place] [address]Dr. Selenaneil Deuce Sodium [Moles/Vol] 126 mmol/L Critically low 136-145 Th [facility] Comment on above: Performed By: #### B COPYHOLDER, BMP ####[facility] Ifdhamvzrd20[address] [place] [id number]. Selenaneil Deuce Urea nitrogen [Mass/Vol] 20.0 mg/dL Critically high 7.0-18.0 [facility] Comment on above: Performed By: #### B COPYHOLDER, BMP ####[facility] Gvcbjurkcl[address] [place] [id number]. Selenaneil Deuce Urea nitrogen/Creatinine [Mass ratio] 17.1 mg/mg [facility] Comment on above: Performed By: #### B COPYHOLDER, BMP ####[facility] Pec[address]wnxdc[address] [place] [id number]. Selenaneil Deuce XR CHEST 1 Von 11-03-2022 XR CHEST 1 V Normal [facility] Activated partial thrombopla stin time (aPTT) in platelet poor plasma by coagulation aOrdered By: Favian Helm on 10-28-2022 aPTT Coag (PPP) [Time] 31.7 s 25.1-36.5 [facility] Alanine aminotransferase [En zymatic activity/volume] in Serum or PlasmaOrdered By: Favian Helm on 10-28-2022 ALT [Catalytic activity/Vol] 14 U/L 7-52 [facility] Albumin [Mass/volume] in Ser um or Plasma by Bromocresol green (BCG) dye binding methoOrdered By: Favian Helm on 10-28-2022 Albumin BCG dye [Mass/Vol] 3.6 g/dL 3.5-5.7 [facility] Alkaline phosphatase [Enzyma tic activity/volume] in Serum or PlasmaOrdered By: Favian Helm on 10-28-2022 ALP [Catalytic activity/Vol] 84 U/L 34-104 [facility] Aspartate aminotransferase [ Enzymatic activity/volume] in Serum or PlasmaOrdered By: Favian Helm on 10-28-2022 AST [Catalytic activity/Vol] 21 U/L 13-39 [facility] B-Type Natriuretic Peptideon 10-28-2022 Natriuretic peptide B (Bld) [Mass/Vol] 551.0 pg/mL High 5-100 [facility] Comment on above: Result Comment: PERF ORMED BY: [place] [address] PATHOLOGIST TOXICOLOGY SUPERVISOR TANNER GAVIN M.D. Performed By: #### V [id number], MG, BMP, JOSE, FE and TIBC, RETIC #### [facility] [address] [place] [address] Basophils Auto (Bld) [#/Vol] Ordered By: Favian Helm on 10-28-2022 Basophils (Bld) [#/Vol] 0.0 10*3/uL 0.0-0.2 [facility] Basophils/100 WBC Auto (Bld) Ordered By: Favian Helm on 10-28-2022 Basophils/100 WBC (Bld) 0.4 % . [facility] Bilirubin.total [Mass/volume ] in Serum or PlasmaOrdered By: Favian Helm on 10-28-2022 Bilirubin [Mass/Vol] 0.3 mg/dL 0.3-1.[address] [facility] CT head/brain wo conon 10-28 CT head/brain wo con [facility] [address] [place] [address] [place] [address] CT Scan Report Signed Patient: Mabel Moser MR#: [id number] : 1960 Acct:[id number] Age/Sex: 62 / F ADM Date: 10/28/22 Loc: ER Room: Type: [facility] ER Attending Dr: Copies [...] Baljinder Ball M.D.10/28/2022 7:46 PM Dictation Location: [place] [address] Transcribed By: [facility] 10/28/221945 Dictated By: Baljinder Ball DO 10/28/221934 Signed By: 10/28/221945 Normal [facility] Calcium [Mass/volume] in Ser um or PlasmaOrdered By: Favian Helm on 10-28-2022 Calcium [Mass/Vol] 8.2 mg/dL 8.6-10.3 [facility] Carbon dioxide, total [Moles /volume] in Serum or PlasmaOrdered By: Favian Helm on 10-28-2022 CO2 [Moles/Vol] 25.7 mmol/L 21.0-31.0 [facility] Chloride [Moles/volume] in S andrea or PlasmaOrdered By: Favian Helm on 10-28-2022 Chloride [Moles/Vol] 98 mmol/L 98-107 [facility] Complete Blood Count Auto Di ffon 10-28-2022 Basophils (Bld) [#/Vol] 0.0 10*3/uL Normal 0.0-0.2 [facility] Comment on above: Result Comment: PERF ORMED BY: [place] [address] PATHOLOGIST TOXICOLOGY SUPERVISOR TANNER GAVIN M.D. Performed By: #### V [id number], MG, BMP, JOSE, FE and TIBC, RETIC #### [address] Basophils/100 WBC (Bld) 0.4 % Normal . [facility] Comment on above: Performed By: #### V [id number], MG, BMP, JOSE, FE and TIBC, RETIC #### [address] Eosinophils (Bld) [#/Vol] 0.1 10*3/uL Normal 0.0-0.45 [facility] Comment on above: Performed By: #### V [id number], MG, BMP, JOSE, FE and TIBC, RETIC #### [address] Eosinophils/100 WBC (Bld) 1.0 % Normal . [facility] Comment on above: Performed By: #### V [id number], MG, BMP, JOSE, FE and TIBC, RETIC #### [address] Erythrocyte distribution width (RBC) [Ratio] 16.5 % High 11.9-15.3 [facility] Comment on above: Performed By: #### V [id number], MG, BMP, JOSE, FE and TIBC, RETIC #### [address] Hematocrit (Bld) [Volume fraction] 29.9 % Low 34.0-46.4 [facility] Comment on above: Performed By: #### V [id number], MG, BMP, JOSE, FE and TIBC, RETIC #### [address] Hemoglobin (Bld) [Mass/Vol] 9.6 g/dL Low 11.8-15.4 [facility] Comment on above: Performed By: #### V [id number], MG, BMP, JOSE, FE and TIBC, RETIC #### [address] Lymphocytes (Bld) [#/Vol] 0.8 10*3/uL Low 1.00-4.8 [facility] Comment on above: Performed By: #### V [id number], MG, BMP, JOSE, FE and TIBC, RETIC #### [address] Lymphocytes/100 WBC (Bld) 12.8 % Normal . [facility] Comment on above: Performed By: #### V [id number], MG, BMP, JOSE, FE and TIBC, RETIC #### [address] MCH (RBC) [Entitic mass] 28.3 pg Normal 24.7-34.3 [facility] Comment on above: Performed By: #### V [id number], MG, BMP, JOSE, FE and TIBC, RETIC #### [address] MCV (RBC) [Entitic vol] 88.3 fL Normal 80-100 [facility] Comment on above: Performed By: #### V [id number], MG, BMP, JOSE, FE and TIBC, RETIC #### [address] Mean Corpuscular HGB Conc 32.0 g/dL Normal 32.0-35.0 [facility] Comment on above: Performed By: #### V [id number], MG, BMP, JOSE, FE and TIBC, RETIC #### [address] Monocytes (Bld) [#/Vol] 0.2 10*3/uL Normal 0.0-0.8 [facility] Comment on above: Performed By: #### V [id number], MG, BMP, JOSE, FE and TIBC, RETIC #### [address] Monocytes/100 WBC (Bld) 17.29 % Normal 0.00-20.00 [facility] Comment on above: Performed By: #### V [id number], MG, BMP, JOSE, FE and TIBC, RETIC #### [address] Monocytes/100 WBC (Bld) 2.5 % Normal . [facility] Comment on above: Performed By: #### V [id number], MG, BMP, JOSE, FE and TIBC, RETIC #### [address] Neutrophils (Bld) [#/Vol] 5.5 10*3/uL Normal 1.8-7.7 [facility] Comment on above: Performed By: #### V [id number], MG, BMP, JOSE, FE and TIBC, RETIC #### [place] [address] [place] Neutrophils/100 WBC (Bld) 83.3 % Normal . [facility] Comment on above: Performed By: #### V [id number], MG, BMP, JOSE, FE and TIBC, RETIC #### [address] NRBC% 0.0 /100{WBC} Normal 0-0.5 [facility] Comment on above: Performed By: #### V [id number], MG, BMP, JOSE, FE and TIBC, RETIC #### [address] Platelet mean volume (Bld) [Entitic vol] 7.3 fL Normal 6.3-10.7 [facility] Comment on above: Performed By: #### V [id number], MG, BMP, JOSE, FE and TIBC, RETIC #### [address] Platelets (Bld) [#/Vol] 260 10*3/uL Normal 150-450 [facility] Comment on above: Performed By: #### V [id number], MG, BMP, JOSE, FE and TIBC, RETIC #### [address] RBC (Bld) [#/Vol] 3.38 10*6/uL Low 3.60-5.00 [facility] Comment on above: Performed By: #### V [id number], MG, BMP, JOSE, FE and TIBC, RETIC #### [address] WBC (Bld) [#/Vol] 6.6 10*3/uL Normal 3.8-11.6 [facility] Comment on above: Performed By: #### V [id number], MG, BMP, JOSE, FE and TIBC, RETIC #### [address] Comprehensive Metabolic Pane elena 10-28-2022 Albumin [Mass/Vol] 3.6 g/dL Normal 3.5-5.7 [facility] Comment on above: Performed By: #### V [id number], MG, BMP, JOSE, FE and TIBC, RETIC #### [address] Albumin/Globulin [Mass ratio] 1.6 {ratio} Normal [facility] Comment on above: Performed By: #### V [id number], MG, BMP, JOSE, FE and TIBC, RETIC #### [facility] [address] [place] [address] ALP [Catalytic activity/Vol] 84 U/L Normal 34-104 [facility] Comment on above: Performed By: #### V [id number], MG, BMP, JOSE, FE and TIBC, RETIC #### [address] ALT [Catalytic activity/Vol] 14 U/L Normal 7-52 [facility] Comment on above: Performed By: #### V [id number], MG, BMP, JOSE, FE and TIBC, RETIC #### [address] Anion gap [Moles/Vol] 10.0 mmol/L Normal 6.0-15.0 [facility] Comment on above: Performed By: #### V [id number], MG, BMP, JOSE, FE and TIBC, RETIC #### [address] AST [Catalytic activity/Vol] 21 U/L Normal 13-39 [facility] Comment on above: Performed By: #### V [id number], MG, BMP, JOSE, FE and TIBC, RETIC #### [address] Bilirubin [Mass/Vol] 0.3 mg/dL Normal 0.3-1.0 [facility] Comment on above: Performed By: #### V [id number], MG, BMP, JOSE, FE and TIBC, RETIC #### [address] Calcium [Mass/Vol] 8.2 mg/dL Low 8.6-10.3 [facility] Comment on above: Performed By: #### V [id number], MG, BMP, JOSE, FE and TIBC, RETIC #### [address] Chloride [Moles/Vol] 98 mmol/L Normal 98-107 [facility] Comment on above: Performed By: #### V [id number], MG, BMP, JOSE, FE and TIBC, RETIC #### [facility] [address] CO2 [Moles/Vol] 25.7 mmol/L Normal 21.0-31.0 [facility] Comment on above: Performed By: #### V [id number], MG, BMP, JOSE, FE and TIBC, RETIC #### [facility] [address] Creatinine [Mass/Vol] 1.23 mg/dL High 0.60-1.20 [facility] Comment on above: Performed By: #### V [id number], MG, BMP, JOSE, FE and TIBC, RETIC #### [facility] [address] Creatinine Clr Calc Pharmacy 48.79 [facility] Comment on above: Performed By: #### V [id number], MG, BMP, JOSE, FE and TIBC, RETIC #### [address] GFR/1.73 sq M.predicted MDRD (S/P/Bld) [Vol rate/Area] 50.309 mL/min/{1.73_m2} [facility] Comment on above: Performed By: #### V [id number], MG, BMP, JOSE, FE and TIBC, RETIC #### [address] Globulin (S) [Mass/Vol] 2.3 g/dL [facility] Comment on above: Performed By: #### V [id number], MG, BMP, JOSE, FE and TIBC, RETIC #### [address] Glucose [Mass/Vol] 98 mg/dL Normal 70-100 [facility] Comment on above: Result Comment: [place] Glucose Reference Range is dependent on time and content of last meal. Glucose of more than 200 mg/dL in a nonstressed, ambulatory subject supports the diagnosis of Diabetes Mellitus. ADA recommended reference range Performed By: #### V [id number], MG, BMP, JOSE, FE and TIBC, RETIC #### [address] Potassium [Moles/Vol] 4.7 mmol/L Normal 3.5-5.1 [facility] Comment on above: Performed By: #### V [id number], MG, BMP, JOSE, FE and TIBC, RETIC #### [address] Protein [Mass/Vol] 5.9 g/dL Low 6.4-8.9 [facility] Comment on above: Performed By: #### V [id number], MG, BMP, JOSE, FE and TIBC, RETIC #### [address] Sodium [Moles/Vol] 129 mmol/L Low 136-145 [facility] Comment on above: Performed By: #### V [id number], MG, BMP, JOSE, FE and TIBC, RETIC #### [address] Urea nitrogen [Mass/Vol] 36 mg/dL High 7-25 [facility] Comment on above: Performed By: #### V [id number], MG, BMP, JOSE, FE and TIBC, RETIC #### [place] [address] [place] Creatine Kinaseon 10-28-2022 CK [Catalytic activity/Vol] 45 U/L Normal 30-223 [facility] Comment on above: Performed By: #### V [id number], MG, BMP, JOSE, FE and TIBC, RETIC #### [place] [address] [place] Creatine kinase [Enzymatic a ctivity/volume] in Serum or PlasmaOrdered By: Favian Helm on 10-28-2022 CK [Catalytic activity/Vol] 45 U/L 30-223 [facility] Creatinine [Mass/volume] in Serum or PlasmaOrdered By: Favian Helm on 10-28-2022 Creatinine [Mass/Vol] 1.23 mg/dL 0.60-1.20 [facility] ECG 12 lead ECGon 10-28-2022 ECG 12 lead ECG [facility] Main [address] [address] Electrocardiograph Report Signed Patient: Mabel Moser MR#: [id number] : 1960 Acct:[id number] Age/Sex: 62 / F ADM Date: 10/28/22 Loc: ER Room: Type: [facility] ER Attending Dr: Ordering Provider: [...] normal variant Confirmed by Chris MAURO DO ([id number]) on 10/28/2022 8:40:44 PM Referred By: Electronically Signed By:Chris MAURO DO Transcribed By: MUS Signed By Chris Mauro DO 0 10/28/222039 Normal [facility] Eosinophils Auto (Bld) [#/Vo l]Ordered By: Favian Helm on 10-28-2022 Eosinophils (Bld) [#/Vol] 0.1 10*3/uL 0.0-0.45 [facility] Eosinophils/100 WBC Auto (Bl d)Ordered By: Favian Helm on 10-28-2022 Eosinophils/100 WBC (Bld) 1.0 % . [facility] Erythrocyte distribution wid th Auto (RBC) [Ratio]Ordered By: Favian Helm on 10-28-2022 Erythrocyte distribution width (RBC) [Ratio] 16.5 % 11.9-15.3 [facility] Globulin Calc (S) [Mass/Vol] Ordered By: Favian Helm on 10-28-2022 Globulin (S) [Mass/Vol] 2.3 g/dL [facility] Glucose [Mass/volume] in Ser um or PlasmaOrdered By: Favian Helm on 10-28-2022 Glucose [Mass/Vol] 98 mg/dL 70-100 [facility] Comment on above: ADA recommended refe rence rangeRandom Glucose Reference Range is dependent on time and content of last meal. Glucose of more than 200 mg/dL in a nonstressed, ambulatory subject supports the diagnosis of Diabetes Mellitus. Hematocrit Auto (Bld) [Volum e fraction]Ordered By: Favian Helm on 10-28-2022 Hematocrit (Bld) [Volume fraction] 29.9 % 34.0-46.4 [facility] Hemoglobin [Mass/volume] in BloodOrdered By: Favian Helm on 10-28-2022 Hemoglobin (Bld) [Mass/Vol] 9.6 g/dL 11.8-15.4 [facility] Laboratory - CoagulationOrde red By: Favian Helm on 10-28-2022 PT Coag (PPP) [Time] 11.0 s 9.0-12.9 [facility] Leukocytes [#/volume] correc nicol for nucleated erythrocytes in Blood by Automated counOrdered By: Favian Helm on 10-28-2022 WBC corrected for nucl RBC Auto (Bld) [#/Vol] 6.6 10*3/uL 3.8-11.6 [facility] Lymphocytes Auto (Bld) [#/Vo l]Ordered By: Favian Helm on 10-28-2022 Lymphocytes (Bld) [#/Vol] 0.8 10*3/uL 1.00-4.8 [facility] Lymphocytes/100 WBC Auto (Bl d)Ordered By: Favian Helm on 10-28-2022 Lymphocytes/100 WBC (Bld) 12.8 % . [facility] MCH Auto (RBC) [Entitic mass ]Ordered By: Favian Helm on 10-28-2022 MCH (RBC) [Entitic mass] 28.3 pg 24.7-34.3 [facility] MCHC Auto (RBC) [Mass/Vol]Or dered By: Favian Helm on 10-28-2022 MCHC (RBC) [Mass/Vol] 32.0 g/dL 32.0-35.0 [facility] MCV Auto (RBC) [Entitic vol] Ordered By: Favian Helm on 10-28-2022 MCV (RBC) [Entitic vol] 88.3 fL 80-100 [facility] Magnesiumon 10-28-2022 Magnesium [Mass/Vol] 1.9 mg/dL Normal 1.9-2.7 [facility] Comment on above: Result Comment: PERF ORMED BY: [facility] [address] [place] [address] PATHOLOGIST TOXICOLOGY SUPERVISOR TANNER GAVIN M.D. Performed By: #### V [id number], MG, BMP, JOSE, FE and TIBC, RETIC #### [facility] [address] Magnesium [Mass/volume] in S andrea or PlasmaOrdered By: Favian Helm on 10-28-2022 Magnesium [Mass/Vol] 1.9 mg/dL 1.9-2.7 [facility] Monocyte distribution width [Entitic volume] in Blood by AutomatedOrdered By: Favian Helm on 10-28-2022 Monocyte distribution width Auto (Bld) [Entitic vol] 17.29 % 0.00-20.00 [facility] Monocytes Auto (Bld) [#/Vol] Ordered By: Favian Helm on 10-28-2022 Monocytes (Bld) [#/Vol] 0.2 10*3/uL 0.0-0.8 [facility] Monocytes/100 WBC Auto (Bld) Ordered By: Favian Helm on 10-28-2022 Monocytes/100 WBC (Bld) 2.5 % . [facility] Natriuretic peptide B [Mass/ Vol]Ordered By: Favian Helm on 10-28-2022 Natriuretic peptide B (Bld) [Mass/Vol] 551.0 pg/mL 5-100 [facility] Neutrophils Auto (Bld) [#/Vo l]Ordered By: Favian Helm on 10-28-2022 Neutrophils (Bld) [#/Vol] 5.5 10*3/uL 1.8-7.7 [facility] Neutrophils/100 WBC Auto (Bl d)Ordered By: Favian Helm on 10-28-2022 Neutrophils/100 WBC (Bld) 83.3 % . [facility] No Panel InformationOrdered By: Favian Helm on 10-28-2022 Estimated GFR (CKD-EPI) 50.309 mL/Min [facility] Creatinine Clearance (Chem 48.79 [facility] Nucleated erythrocytes [Pres ence] in Blood by Automated countOrdered By: Favian Helm on 10-28-2022 Nucleated RBC Auto Ql (Bld) 0.0 /100{WBC} 0-0.5 [facility] Partial Thromboplastin Timeo n 10-28-2022 aPTT Coag (Bld) [Time] 31.7 s Normal 25.1-36.5 [facility] Comment on above: Result Comment: PERF ORMED BY: [place] [address] PATHOLOGIST TOXICOLOGY SUPERVISOR TANNER GAVIN M.D. Performed By: #### V [id number], MG, BMP, JOSE, FE and TIBC, RETIC #### [facility] [address] [place] [address] Platelet mean volume Auto (B ld) [Entitic vol]Ordered By: Favian Helm on 10-28-2022 Platelet mean volume (Bld) [Entitic vol] 7.3 fL 6.3-10.7 [facility] Platelet poor plasma interna tional normalized ratio (INR) by coagulation assay (relatOrdered By: Favian Helm on 10-28-2022 INR Coag (PPP) [Relative time] 1.0 {INR} [facility] Comment on above: INR Therapeutic Rang e [...] 10-28-2022 Platelets (Bld) [#/Vol] 260 10*3/uL 150-450 [facility] Potassium [Moles/volume] in Serum or PlasmaOrdered By: Favian Helm on 10-28-2022 Potassium [Moles/Vol] 4.7 mmol/L 3.5-5.1 [facility] Protein [Mass/volume] in Ser um or PlasmaOrdered By: Favian Helm on 10-28-2022 Protein [Mass/Vol] 5.9 g/dL 6.4-8.9 [facility] Prothrombin Time INRon 10-28 INR Coag (PPP) [Relative time] 1.0 {INR} Normal [facility] Comment on above: Result Comment: INR Therapeutic [...] 3 - 4.5 Performed By: #### V [id number], MG, BMP, JOSE, FE and TIBC, RETIC #### [facility] [address] PT Coag (PPP) [Time] 11.0 s Normal 9.0-12.9 [facility] Comment on above: Performed By: #### V [id number], MG, BMP, JOSE, FE and TIBC, RETIC #### [facility] [address] RBC Auto (Bld) [#/Vol]Ordere d By: Favian Helm on 10-28-2022 RBC (Bld) [#/Vol] 3.38 10*6/uL 3.60-5.00 [facility] Serum or plasma albumin/glob ulin mass ratioOrdered By: Favian Helm on 10-28-2022 Albumin/Globulin [Mass ratio] 1.6 {ratio} [facility] Serum or plasma anion gap de terminationOrdered By: Favian Helm on 10-28-2022 Anion gap [Moles/Vol] 10.0 mmol/L 6.0-15.0 [facility] Sodium [Moles/volume] in Ser um or PlasmaOrdered By: Favian Helm on 10-28-2022 Sodium [Moles/Vol] 129 mmol/L 136-145 [facility] Troponin I High Sensitivityo n 10-28-2022 Troponin I High Sensitivity 5.8 pg/mL Normal 0.0-15.0 [facility] Comment on above: Result Comment: PERF ORMED BY: [place] [address] PATHOLOGIST TOXICOLOGY SUPERVISOR TANNER GAVIN M.D. Performed By: #### V [id number], MG, BMP, JOSE, FE and TIBC, RETIC #### [facility] [address] Troponin I.cardiac [Mass/vol ume] in Serum or Plasma by Detection limit <= 0.01 ng/Ordered By: Favian Helm on 10-28-2022 Troponin I.cardiac DL <= 0.01 ng/mL [Mass/Vol] 5.8 pg/mL 0.0-15.0 [facility] Urea nitrogen [Mass/volume] in Serum or PlasmaOrdered By: Favian Helm on 10-28-2022 Urea nitrogen [Mass/Vol] 36 mg/dL 7-25 [facility] WBC Auto (Bld) [#/Vol]Ordere d By: Favian Helm on 10-28-2022 WBC (Bld) [#/Vol] 6.6 10*3/uL 3.8-11.6 [facility] XR chest 2V*on 10-28-2022 XR chest 2V* [facility] [address] [place] [address] [place] [address] XRay Report Signed Patient: Mabel Moser MR#: [id number] : 1960 Acct:[id number] Age/Sex: 62 / F ADM Date: 10/28/22 Loc: ER Room: Type: [facility] ER Attending Dr: Copies to: Favian Helm PA-C Ordering Provider: Favian Helm PA-C Date of Service: 10/28/22 XR/XR chest 2V*: Shortness of Breath/Dyspnea Plain film chest 2 view HISTORY: Fluid overload. Shortness of breath. Headache. COMPARISON: 08/31/2018 FINDINGS: SUPPORT DEVICES: None POSTSURGICAL CHANGES: Right Zpvqtt-l-Hopq intact with tip overlying the distal SVC. HEART: Within normal limits PULMONARY RAI: Within normal limits MEDIASTINUM: Unremarkable LUNGS AND PLEURA: No acute lung process, pleural effusion or pneumothorax identified. BONY STRUCTURES: Intact ADDITIONAL FINDINGS None XR/XR chest 2V* IMPRESSION: No acute process. Impression dictated by: Baljinder Ball M.D.10/28/2022 7:50 PM Dictation Location: [place] [address] Transcribed By: [facility] 10/28/221949 Dictated By: Baljinder Ball DO 10/28/221945 Signed By: 10/28/221949 [facility] BNPon 10-26-2022 Natriuretic peptide B (Bld) [Mass/Vol] 2657.0 pg/mL Critically high <=900.0 [facility] Comment on above: Performed By: #### C MP, BNP ####[facility] D[address] [place], [place] [address]Dr. Airam Tripathi CBC AUTO DIFFon 10-26-2022 BASO # 0.0 103/ul Normal 0.0-0.1 [facility] Comment on above: Performed By: #### C BC ####[facility] I[address] [place], [place] [address]Dr. Selenaneil Tripathi Basophils/100 WBC (Bld) 0.5 % Normal 0.2-2.0 [facility] Comment on above: Performed By: #### C BC ####[facility] [address] [place], [place] [address]Dr. Selenaneil Tripathi EO # 0.3 103/ul Normal 0.0-0.7 [facility] Comment on above: Performed By: #### C BC ####[facility] [address] [place], [place] [address]Dr. Selenaneil Tripathi Eosinophils/100 WBC (Bld) 4.8 % Normal 0.9-7.0 [facility] Comment on above: Performed By: #### C BC ####[facility] [address] [place] [address]Dr. Airam Tripathi Erythrocyte distribution width (RBC) [Ratio] 15.5 % Critically high 11.0-15.0 [facility] Comment on above: Performed By: #### C BC ####[facility] [address] [place] [address]Dr. Airam Tripathi Hematocrit (Bld) [Volume fraction] 27.7 % Critically low 36.0-48.0 [facility] Comment on above: Performed By: #### C BC ####[facility] [address] [place] [address]Dr. Airam Tripathi Hemoglobin (Bld) [Mass/Vol] 8.8 g/dL Critically low 12.0-16.0 [facility] Comment on above: Performed By: #### C BC ####[facility] [address] [place], [place] [address]Dr. Airam Tripathi IG # 0.03 10e3/ul Normal 0.00-0.03 [facility] Comment on above: Performed By: #### C BC ####[facility] [address] [place], [place] [address]Dr. Airam Tripathi IG % 0.5 % Normal 0.0-0.5 [facility] Comment on above: Performed By: #### C BC ####[facility] [address] [place], [place] [address]Dr. Airam Tripathi LYMPH # 1.6 103/ul Normal 1.2-3.8 [facility] Comment on above: Performed By: #### C BC ####[facility] [address] [place] [address]Dr. Airam Tripathi Lymphocytes/100 WBC (Bld) 25.5 % Normal 20.5-60.0 [facility] Comment on above: Performed By: #### C BC ####[facility] [address] [place], [place] [address]Dr. Airam Tripathi MANUAL DIFF REQ NO Normal [facility] Comment on above: Performed By: #### C BC ####[facility] [address] [place] [id number]. Airam Tripathi MCH (RBC) [Entitic mass] 29.0 pg Normal 26.7-34.0 [facility] Comment on above: Performed By: #### C BC ####[facility] [address] [place] [address]Dr. Airam Tripathi MCHC (RBC) [Mass/Vol] 31.8 g/dL Normal 29.9-35.2 [facility] Comment on above: Performed By: #### C BC ####[facility] [address] [place] [id number]. Airam Tripathi MCV (RBC) [Entitic vol] 91.4 fL Normal 81.0-99.0 [facility] Comment on above: Performed By: #### C BC ####[facility] Deakaamvfr[address] [place], [place] [address]Dr. Selenaneil Deuce MONO # 0.5 103/ul Normal 0.3-0.8 [facility] Comment on above: Performed By: #### C BC ####[facility] [address] [place] [address]Dr. Selenaneil Tripathi Monocytes/100 WBC (Bld) 7.5 % Normal 1.7-12.0 [facility] Comment on above: Performed By: #### C BC ####[facility] [address]jes[address] [place], [place] [address]Dr. Airam Tripathi NEUT # 3.9 103/ul Normal 1.4-6.5 [facility] Comment on above: Performed By: #### C BC ####[facility] [address] [place], [place] [address]Dr. Selenaneil Tripathi Neutrophils/100 WBC (Bld) 61.2 % Normal 43.0-75.0 [facility] Comment on above: Performed By: #### C BC ####[facility] [address] [place], [place] [address]Dr. Selenaneil Deuce Platelet mean volume (Bld) [Entitic vol] 9.4 fL Critically low 9.5-13.5 [facility] Comment on above: Performed By: #### C BC ####[facility] [address] [place] [id number]. Airam Tripathi PLT 247 103/ul Normal 150-450 [facility] Comment on above: Performed By: #### C BC ####[facility] [address] [place] [address]Dr. Airam Tripathi RBC 3.03 106/ul Critically low 4.20-5.40 [facility] Comment on above: Performed By: #### C BC ####[facility] [address] [place] [address]Dr. Airam Tripathi WBC 6.4 103/ul Normal 4.0-11.0 [facility] Comment on above: Performed By: #### C BC ####[facility] [address] [place] [address]Dr. Airam Tripathi PROF 14(COMP METB)on 023 Albumin [Mass/Vol] 2.5 g/dL Critically low 3.4-5.0 [facility] Comment on above: Performed By: #### C MP, BNP ####[facility] [address] [place], [place] [address]Dr. Airam Tripathi Albumin/Globulin [Mass ratio] 0.9 {ratio} Normal [facility] Comment on above: Performed By: #### C MP, BNP ####[facility] [address] [place] [address]Dr. Airam Tripathi ALP [Catalytic activity/Vol] 108 U/L Normal 46-116 [facility] Comment on above: Performed By: #### C MP, BNP ####[facility] [address] [place] [address]Dr. Airam Tripathi ALT [Catalytic activity/Vol] 20 U/L Normal 14-59 [facility] Comment on above: Performed By: #### C MP, BNP ####[facility] [address] [place] [address]Dr. Airam Tripathi Anion gap [Moles/Vol] 10.4 mmol/L Normal [facility] Comment on above: Performed By: #### C MP, BNP ####[facility] [address] [place] [address]Dr. Airam Tripathi AST [Catalytic activity/Vol] 20 U/L Normal 15-37 [facility] Comment on above: Performed By: #### C MP, BNP ####[facility] [address] [place] [address]Dr. Airam Tripathi Bilirubin [Mass/Vol] 0.2 mg/dL Normal 0.2-1.0 [facility] Comment on above: Performed By: #### C MP, BNP ####[facility] [address] [place], [place] [address]Dr. Airam Tripathi Calcium [Mass/Vol] 8.0 mg/dL Critically low 8.5-10.1 [facility] Comment on above: Performed By: #### C MP, BNP ####[facility] [address] [place], [place] [address]Dr. Airam Tripathi Chloride [Moles/Vol] 100 mmol/L Normal 98-107 [facility] Comment on above: Performed By: #### C MP, BNP ####[facility] [address] [place], [place] [address]Dr. Airam Tripathi CO2 [Moles/Vol] 28.6 mmol/L Normal 21.0-32.0 [facility] Comment on above: Performed By: #### C MP, BNP ####[facility] Kenx[address] [place], [place] [address]Dr. Airam Tripathi Creatinine [Mass/Vol] 1.66 mg/dL Critically high 0.55-1.02 [facility] Comment on above: Performed By: #### C MP, BNP ####[facility] U[address] [place], [place] [address]Dr. Airam Tripathi EGFR-AF LUXEMBOURGER 38 mL/min/1.73m2 Critically low >=60 [facility] Comment on above: Performed By: #### C MP, BNP ####[facility] E[address] [place], [place] [address]Dr. Airam Deuce EGFR-NON AF LUXEMBOURGER 32 mL/min/1.73m2 Critically low >=60 [facility] Comment on above: Performed By: #### C MP, BNP ####[facility] P[address]woi[address] [place], [place] [address]Dr. Airam Tripathi Globulin (S) [Mass/Vol] 2.8 g/dL Normal [facility] Comment on above: Performed By: #### C MP, BNP ####[facility] [address]rsvuizlhc[address] [place], [place] [address]Dr. Airam Tripathi Glucose [Mass/Vol] 102 mg/dL Normal 74-106 [facility] Comment on above: Performed By: #### C MP, BNP ####[facility] [address]zd[address] [place], [place] [address]Dr. Airam Tripathi Potassium [Moles/Vol] 5.0 mmol/L Normal 3.5-5.1 [facility] Comment on above: Performed By: #### C MP, BNP ####[facility] Reiyimiogi[address] [place], [place] [address]Dr. Airam Tripathi Protein [Mass/Vol] 5.3 g/dL Critically low 6.4-8.2 Th [facility] Comment on above: Performed By: #### C MP, BNP ####[facility] Y[address]ur[address]ugos[address] [place], [place] [address]Dr. Airam Tripathi Sodium [Moles/Vol] 134 mmol/L Critically low 136-145 Th [facility] Comment on above: Performed By: #### C MP, BNP ####[facility] Wshsezobcy[address] [place], [place] [address]Dr. Airam Tripathi Urea nitrogen [Mass/Vol] 45.0 mg/dL Critically high 7.0-18.0 [facility] Comment on above: Performed By: #### C MP, BNP ####[facility] [address]ern[address]vez[address] [place], [place] [address]Dr. Airam Tripathi Urea nitrogen/Creatinine [Mass ratio] 27.1 mg/mg Normal [facility] Comment on above: Performed By: #### C MP, BNP ####[facility] Eokaemssro[address] [place], [place] [address]Dr. Airam Tripathi BNPon 10-25-2022 Natriuretic peptide B (Bld) [Mass/Vol] 4569.0 pg/mL Critically high <=900.0 [facility] Comment on above: Performed By: #### C MP, BNP ####[facility] [address] [place], [place] [address]Dr. Airam Tripathi CBC AUTO DIFFon 10-25-2022 BASO # 0.0 103/ul Normal 0.0-0.1 [facility] Comment on above: Performed By: #### C BC ####[facility] Cz[address]fc[address] [place], [place] [address]Dr. Selenaneil Tripathi Basophils/100 WBC (Bld) 0.5 % Normal 0.2-2.0 [facility] Comment on above: Performed By: #### C BC ####[facility] [address]wsbz[address] [place], [place] [address]Dr. Airam Tripathi EO # 0.3 103/ul Normal 0.0-0.7 [facility] Comment on above: Performed By: #### C BC ####[facility] [address] [place], [place] [address]Dr. Selenaneil Tripathi Eosinophils/100 WBC (Bld) 5.6 % Normal 0.9-7.0 [facility] Comment on above: Performed By: #### C BC ####[facility] X[address] [place], [place] [address]Dr. Airam Tripathi Erythrocyte distribution width (RBC) [Ratio] 15.7 % Critically high 11.0-15.0 [facility] Comment on above: Performed By: #### C BC ####[facility] X[address]ate[address] [place], [place] [address]Dr. Airam Tripathi Hematocrit (Bld) [Volume fraction] 30.1 % Critically low 36.0-48.0 [facility] Comment on above: Performed By: #### C BC ####[facility] W[address] [place], [place] [address]Dr. Airam Tripathi Hemoglobin (Bld) [Mass/Vol] 9.2 g/dL Critically low 12.0-16.0 [facility] Comment on above: Performed By: #### C BC ####[facility] Abqwvmvjej[address] [place] [id number]. Airam Deuce IG # 0.03 10e3/ul Normal 0.00-0.03 [facility] Comment on above: Performed By: #### C BC ####[facility] Trsauodoel8192 [place] [id number]. Airam Tripathi IG % 0.5 % Normal 0.0-0.5 [facility] Comment on above: Performed By: #### C BC ####[facility] Kplvtmhrup[address] [place] [address]Dr. Airam Tripathi LYMPH # 1.7 103/ul Normal 1.2-3.8 [facility] Comment on above: Performed By: #### C BC ####[facility] Llzyabtdyr5001 [place] [address]DrKianna Tripathi Lymphocytes/100 WBC (Bld) 28.9 % Normal 20.5-60.0 [facility] Comment on above: Performed By: #### C BC ####[facility] Jofusskvmu7[address] [place] [address]DrKianna Tripathi MANUAL DIFF REQ NO Normal [facility] Comment on above: Performed By: #### C BC ####[facility] Eaeehdimbm1904 [place] [id number]. Airam Tripathi MCH (RBC) [Entitic mass] 28.4 pg Normal 26.7-34.0 [facility] Comment on above: Performed By: #### C BC ####[facility] Fkfwgurznj0801 [place] [phone]. Airam Deuce MCHC (RBC) [Mass/Vol] 30.6 g/dL Normal 29.9-35.2 [facility] Comment on above: Performed By: #### C BC ####[facility] Qhxjvycgwf5939 [place] [phone]. Selenaneil Tripathi MCV (RBC) [Entitic vol] 92.9 fL Normal 81.0-99.0 [facility] Comment on above: Performed By: #### C BC ####[facility] Kjgoxxdawp8493 [place] [phone]. Airam Tripathi MONO # 0.5 103/ul Normal 0.3-0.8 [facility] Comment on above: Performed By: #### C BC ####[facility] Xqsjgugiog5600 [place] [phone]. Airam Tripathi Monocytes/100 WBC (Bld) 8.5 % Normal 1.7-12.0 [facility] Comment on above: Performed By: #### C BC ####[facility] Dujrgrfvut9980 [place] [phone]. Airam Tripathi NEUT # 3.2 103/ul Normal 1.4-6.5 [facility] Comment on above: Performed By: #### C BC ####[facility] Cjaucdvjqw46[address] [place], [place] [address]Dr. Airam Tripathi Neutrophils/100 WBC (Bld) 56.0 % Normal 43.0-75.0 [facility] Comment on above: Performed By: #### C BC ####[facility] Kgxfqbbmhn8680 [place] [address]Dr. Airam Tripathi Platelet mean volume (Bld) [Entitic vol] 9.4 fL Critically low 9.5-13.5 [facility] Comment on above: Performed By: #### C BC ####[facility] Kybarmoh[address] [place], [place] [address]Dr. Airam Tripathi PLT 272 103/ul Normal 150-450 [facility] Comment on above: Performed By: #### C BC ####[facility] Cmwgjdqkxh[address] [place], [place] [address]Dr. Airam Tripathi RBC 3.24 106/ul Critically low 4.20-5.40 [facility] Comment on above: Performed By: #### C BC ####[facility] Mgagnbyufq9112[address] [place], [place] [address]Dr. Airam Tripathi WBC 5.8 103/ul Normal 4.0-11.0 [facility] Comment on above: Performed By: #### C BC ####[facility] Trrxzpsuzc2691 [place] [address]Dr. Airam Tripathi OSMOLALITYon 10-25-2022 Osmolality [Osmolality] 282 mosm/kg Normal 275-295 [facility] Comment on above: Performed By: #### O SMO ####[facility] Pfwoayycth5854 [place] [address]Dr. Airam Tripathi PROF 14(COMP METB)on 023 Albumin [Mass/Vol] 2.7 g/dL Critically low 3.4-5.0 [facility] Comment on above: Performed By: #### C MP, BNP ####[facility] Ssuigxsnzv5052 [place] [address]Dr. Airam Tripathi Albumin/Globulin [Mass ratio] 0.9 {ratio} Normal [facility] Comment on above: Performed By: #### C MP, BNP ####[facility] Vftfnabqek9855 [place] [address]Dr. Airam Tripathi ALP [Catalytic activity/Vol] 122 U/L Critically high 46-116 [facility] Comment on above: Performed By: #### C MP, BNP ####[facility] Pipwagfiue9943 [place] [address]Dr. Airam Tripathi ALT [Catalytic activity/Vol] 23 U/L Normal 14-59 [facility] Comment on above: Performed By: #### C MP, BNP ####[facility] Uoafpuksht4880 [place] [address]Dr. Airam Tripathi Anion gap [Moles/Vol] 10.5 mmol/L Normal [facility] Comment on above: Performed By: #### C MP, BNP ####[facility] Goymrhklpw5818 [place] [address]Dr. Airam Tripathi AST [Catalytic activity/Vol] 22 U/L Normal 15-37 [facility] Comment on above: Performed By: #### C MP, BNP ####[facility] Dpchajhecr3976 [place] [address]Dr. Airam Tripathi Bilirubin [Mass/Vol] 0.2 mg/dL Normal 0.2-1.0 [facility] Comment on above: Performed By: #### C MP, BNP ####[facility] Qnpgyogdex0098 [place] [address]Dr. Airam Tripathi Calcium [Mass/Vol] 8.3 mg/dL Critically low 8.5-10.1 [facility] Comment on above: Performed By: #### C MP, BNP ####[facility] Oaunnbdbtk7393 [place] [address]Dr. Airam Tripathi Chloride [Moles/Vol] 102 mmol/L Normal 98-107 [facility] Comment on above: Performed By: #### C MP, BNP ####[facility] Gugbhawahq9[address] [place], [place] [address]Dr. Airam Tripathi CO2 [Moles/Vol] 29.7 mmol/L Normal 21.0-32.0 [facility] Comment on above: Performed By: #### C MP, BNP ####[facility] Ogvywpuqot274[address] [place], [place] [address]Dr. Airam Tripathi Creatinine [Mass/Vol] 1.31 mg/dL Critically high 0.55-1.02 [facility] Comment on above: Performed By: #### C MP, BNP ####[facility] Xiwisnpfre2988[address] [place], [place] [address]Dr. Airam Tripathi EGFR-AF LUXEMBOURGER 50 mL/min/1.73m2 Critically low >=60 [facility] Comment on above: Performed By: #### C MP, BNP ####[facility] Lldiwybqec7[address] [place], [place] [address]Dr. Airam Tripathi EGFR-NON AF LUXEMBOURGER 41 mL/min/1.73m2 Critically low >=60 [facility] Comment on above: Performed By: #### C MP, BNP ####[facility] Xwattxrvit3[address] [place], [place] [address]Dr. Airam Tripathi Globulin (S) [Mass/Vol] 2.9 g/dL Normal [facility] Comment on above: Performed By: #### C MP, BNP ####[facility] Szefbcdncr45[address] [place], [place] [address]Dr. Selenaneil Tripathi Glucose [Mass/Vol] 94 mg/dL Normal 74-106 [facility] Comment on above: Performed By: #### C MP, BNP ####[facility] Vlbujsgtio5[address] [place], [place] [address]Dr. Airam Tripathi Potassium [Moles/Vol] 4.2 mmol/L Normal 3.5-5.1 [facility] Comment on above: Performed By: #### C MP, BNP ####[facility] Tzgsdwmeht4078[address] [place], [place] [address]Dr. Airam Tripathi Protein [Mass/Vol] 5.6 g/dL Critically low 6.4-8.2 [facility] Comment on above: Performed By: #### C MP, BNP ####[facility] Fzvdrqhbfc[address] [place], [place] [address]Dr. Airam Tripathi Sodium [Moles/Vol] 138 mmol/L Normal 136-145 [facility] Comment on above: Performed By: #### C MP, BNP ####[facility] Tixjctxjlx8[address] [place], [place] [address]Dr. Airam Tripathi Urea nitrogen [Mass/Vol] 33.0 mg/dL Critically high 7.0-18.0 [facility] Comment on above: Performed By: #### C MP, BNP ####[facility] Xqczarihzx6158[address] [place], [place] [address]Dr. Airam Tripathi Urea nitrogen/Creatinine [Mass ratio] 25.2 mg/mg Normal [facility] Comment on above: Performed By: #### C MP, BNP ####[facility] Dtikfeqwpr9977[address] [place], [place] [address]Dr. Airam Tripathi BNPon 10-24-2022 Natriuretic peptide B (Bld) [Mass/Vol] 3805.0 pg/mL Critically high <=900.0 [facility] Comment on above: Performed By: #### H STROPN, BNP, CMP ####[facility] Nvstdriwmm4[address] [place], [place] [address]Dr. Airam Tripathi CBC AUTO DIFFon 10-24-2022 BASO # 0.0 103/ul Normal 0.0-0.1 [facility] Comment on above: Performed By: #### C BC ####[facility] Nwrcamabiz6516 [place] [phone]. Airam Tripathi Basophils/100 WBC (Bld) 0.3 % Normal 0.2-2.0 [facility] Comment on above: Performed By: #### C BC ####[facility] Tishqjnmea[address] [place], [place] [address]Dr. Airam Tripathi EO # 0.3 103/ul Normal 0.0-0.7 [facility] Comment on above: Performed By: #### C BC ####[facility] Oghfwhqzwx904[address] [place], [place] [address]Dr. Airam Tripathi Eosinophils/100 WBC (Bld) 4.2 % Normal 0.9-7.0 [facility] Comment on above: Performed By: #### C BC ####[facility] Moeorhimen4890[address] [place], [place] [address]Dr. Airam Tripathi Erythrocyte distribution width (RBC) [Ratio] 15.6 % Critically high 11.0-15.0 [facility] Comment on above: Performed By: #### C BC ####[facility] Vwxuxiumyx0040[address] [place], [place] [address]Dr. Airam Tripathi Hematocrit (Bld) [Volume fraction] 30.0 % Critically low 36.0-48.0 [facility] Comment on above: Performed By: #### C BC ####[facility] Ptbbpnlcju6[address] [place], [place] [address]Dr. Airam Tripathi Hemoglobin (Bld) [Mass/Vol] 9.3 g/dL Critically low 12.0-16.0 [facility] Comment on above: Performed By: #### C BC ####[facility] Wruogawgdc208[address] [place], [place] [address]Dr. Airam Tripathi IG # 0.03 10e3/ul Normal 0.00-0.03 [facility] Comment on above: Performed By: #### C BC ####[facility] Qxkjekucjt745[address] [place], [place] [address]Dr. Airam Tripathi IG % 0.5 % Normal 0.0-0.5 [facility] Comment on above: Performed By: #### C BC ####[facility] Xdtynujkqc5155 [place] [id number]. Airam Tripathi LYMPH # 1.4 103/ul Normal 1.2-3.8 [facility] Comment on above: Performed By: #### C BC ####[facility] Sypyxtmjlu2044 [place] [id number]. Airam Tripathi Lymphocytes/100 WBC (Bld) 22.5 % Normal 20.5-60.0 [facility] Comment on above: Performed By: #### C BC ####[facility] Avnkjvpdau463[address] [place], [place] [address]Dr. Airam Tripathi MANUAL DIFF REQ NO Normal [facility] Comment on above: Performed By: #### C BC ####[facility] Ozahovujix04[address] [place], [place] [address]Dr. Airam Tripathi MCH (RBC) [Entitic mass] 28.7 pg Normal 26.7-34.0 [facility] Comment on above: Performed By: #### C BC ####[facility] Hhezukzvac7[address] [place], [place] [address]Dr. Selenaneil Tripathi MCHC (RBC) [Mass/Vol] 31.0 g/dL Normal 29.9-35.2 [facility] Comment on above: Performed By: #### C BC ####[facility] Zpmlcyjdmv[address] [place], [place] [address]Dr. Airam Tripathi MCV (RBC) [Entitic vol] 92.6 fL Normal 81.0-99.0 [facility] Comment on above: Performed By: #### C BC ####[facility] Pbhrpzjuih[address] [place], [place] [address]Dr. Airam Tripathi MONO # 0.4 103/ul Normal 0.3-0.8 [facility] Comment on above: Performed By: #### C BC ####[facility] Ktmquplupa[address] [place], [place] [address]Dr. Airam Tripathi Monocytes/100 WBC (Bld) 7.3 % Normal 1.7-12.0 [facility] Comment on above: Performed By: #### C BC ####[facility] Xjlupzjvnj8268 [place] [phone]. Airam Tripathi NEUT # 3.9 103/ul Normal 1.4-6.5 [facility] Comment on above: Performed By: #### C BC ####[facility] Wfhwbdscbg1142 [place] [id number]. Airam Tripathi Neutrophils/100 WBC (Bld) 65.2 % Normal 43.0-75.0 [facility] Comment on above: Performed By: #### C BC ####[facility] Oqofrychhy2697 [place] [phone]. Airam Tripathi Platelet mean volume (Bld) [Entitic vol] 9.0 fL Critically low 9.5-13.5 [facility] Comment on above: Performed By: #### C BC ####[facility] Gpchjattzx7146 [place] [address]Dr. Airam Tripathi PLT 247 103/ul Normal 150-450 [facility] Comment on above: Performed By: #### C BC ####[facility] Wqryjlvbgj6613 [place] [phone]. Airam Tripathi RBC 3.24 106/ul Critically low 4.20-5.40 [facility] Comment on above: Performed By: #### C BC ####[facility] Aqjyylwnkj6093 [place] [id number]. Airam Tripathi WBC 6.0 103/ul Normal 4.0-11.0 [facility] Comment on above: Performed By: #### C BC ####[facility] Vehodgykef2297 [place] [phone]. Airam Tripathi CULTURE URINEon 10-24-2022 CULTURE URINE Culture Observations : LIGHT GROWTH OF MIXED GENITAL GREGORY. NO POTENTIAL PATHOGENS SEEN. Normal [facility] Comment on above: Performed By: #### U RCX ####[facility] Bstigbysgq5787 [place] [address]Dr. Airam Tripathi POINT OF CARE GLUCOSEon 05-0 Glucose [Mass/Vol] 118 mg/dL Critically high 74-106 [facility] Comment on above: Performed By: #### P OCGLUC ####[facility] Jtfvudfuuc3019 [place] [address]Dr. Airam Tripathi PROF 14(COMP METB)on 023 Albumin [Mass/Vol] 3.1 g/dL Critically low 3.4-5.0 [facility] Comment on above: Performed By: #### H STROPN, BNP, CMP ####[facility] Uspawotvpr6834 [place] [address]Dr. Airam Tripathi Albumin/Globulin [Mass ratio] 1.0 {ratio} Normal [facility] Comment on above: Performed By: #### H STROPN, BNP, CMP ####[facility] Bbaqrgfkkv5177 [place] [address]Dr. Airam Tripathi ALP [Catalytic activity/Vol] 131 U/L Critically high 46-116 [facility] Comment on above: Performed By: #### H STROPN, BNP, CMP ####[facility] Iwwukamlnb[address] [place], [place] [address]Dr. Airam Tripathi ALT [Catalytic activity/Vol] 26 U/L Normal 14-59 [facility] Comment on above: Performed By: #### H STROPN, BNP, CMP ####[facility] Qqvyhidcun2368 [place] [address]Dr. Airam Tripathi Anion gap [Moles/Vol] 11.2 mmol/L Normal [facility] Comment on above: Performed By: #### H STROPN, BNP, CMP ####[facility] Llrghxwgny3755 [place] [address]Dr. Airam Tripathi AST [Catalytic activity/Vol] 31 U/L Normal 15-37 [facility] Comment on above: Performed By: #### H STROPN, BNP, CMP ####[facility] Ztrbvqjwow3066 [place] [address]Dr. Airam Tripathi Bilirubin [Mass/Vol] 0.2 mg/dL Normal 0.2-1.0 [facility] Comment on above: Performed By: #### H STROPN, BNP, CMP ####[facility] Xuflcgpdlv3582 [place] [address]Dr. Airam Tripathi Calcium [Mass/Vol] 8.6 mg/dL Normal 8.5-10.1 [facility] Comment on above: Performed By: #### H STROPN, BNP, CMP ####[facility] Ogclokmgyx7119 [place] [address]Dr. Airam Tripathi Chloride [Moles/Vol] 102 mmol/L Normal 98-107 [facility] Comment on above: Performed By: #### H STROPN, BNP, CMP ####[facility] Tlpjumzpha3801 [place] [address]Dr. Airam Tripathi CO2 [Moles/Vol] 27.4 mmol/L Normal 21.0-32.0 [facility] Comment on above: Performed By: #### H STROPN, BNP, CMP ####[facility] Brfwfkrzgy6[address] [place], [place] [address]Dr. Airam Tripathi Creatinine [Mass/Vol] 1.23 mg/dL Critically high 0.55-1.02 [facility] Comment on above: Performed By: #### H STROPN, BNP, CMP ####[facility] Lmaoywzeec656[address] [place], [place] [address]Dr. Airam Tripathi EGFR-AF LUXEMBOURGER 54 mL/min/1.73m2 Critically low >=60 [facility] Comment on above: Performed By: #### H STROPN, BNP, CMP ####[facility] Zrujbmruii4724[address] [place], [place] [address]Dr. Airam Tripathi EGFR-NON AF LUXEMBOURGER 45 mL/min/1.73m2 Critically low >=60 [facility] Comment on above: Performed By: #### H STROPN, BNP, CMP ####[facility] Mfkwakkskf4315[address] [place], [place] [address]Dr. Airam Tripathi Globulin (S) [Mass/Vol] 3.1 g/dL Normal [facility] Comment on above: Performed By: #### H STROPN, BNP, CMP ####[facility] Yrjfplddbr[address] [place], [place] [address]Dr. Airam Tripathi Glucose [Mass/Vol] 90 mg/dL Normal 74-106 [facility] Comment on above: Performed By: #### H STROPN, BNP, CMP ####[facility] Buwkewyqnd3570 [place] [address]Dr. Airam Tripathi Potassium [Moles/Vol] 5.6 mmol/L Critically high 3.5-5.1 [facility] Comment on above: Performed By: #### H STROPN, BNP, CMP ####[facility] Mvzmqzbjdl1308 [place] [address]Dr. Airam Tripathi Protein [Mass/Vol] 6.2 g/dL Critically low 6.4-8.2 [facility] Comment on above: Performed By: #### H STROPN, BNP, CMP ####[facility] Hpwqldpmms9356 [place] [address]Dr. Airam Tripathi Sodium [Moles/Vol] 135 mmol/L Critically low 136-145 [facility] Comment on above: Performed By: #### H STROPN, BNP, CMP ####[facility] Xuwkblonjw6486 [place] [address]Dr. Airam Tripathi Urea nitrogen [Mass/Vol] 38.0 mg/dL Critically high 7.0-18.0 [facility] Comment on above: Performed By: #### H STROPN, BNP, CMP ####[facility] Dpubvrcemt9821 [place] [address]Dr. Airam Tripathi Urea nitrogen/Creatinine [Mass ratio] 30.9 mg/mg Normal [facility] Comment on above: Performed By: #### H STROPN, BNP, CMP ####[facility] Idafsavwoo[address] [place], [place] [address]Dr. Airam Tripathi TROPONIN, HIGH SENSITIVITYon 10-24-2022 HSTROP 8.0 pg/mL Normal 4.0-51.3 [facility] Comment on above: Result Comment: CUT- OFF POINTS HAVE BEEN ESTABLISHED BASED ON THE FOURTH UNIVERSAL DEFINITIONS OF MYOCARDIALINFARCTION. THE UPPER REFERENCE LIMIT (URL) OF TROPONIN, DEFINED THE 99TH PERCENTILE OFcTnI DISTRIBUTION IN A REFERENCE POPULATION, HAS BEEN CONFIRMED THE DECISION THRESHOLDFOR [place] DIAGNOSIS. Performed By: #### H STROPN, BNP, CMP ####[facility] Jexsykevmt[address] [place] [address]Dr. Airam Tripathi UA RANDOM W/MICROSCOPICon BACTERIA NONE SEEN Normal NONE SEEN [facility] Comment on above: Performed By: #### U AMIC ####[facility] Ebzhydhhsb[address] [place] [address]Dr. Airam Tripathi Bilirubin Ql (U) Negative Normal NEGATIVE [facility] Comment on above: Performed By: #### U AMIC ####[facility] Szdvdnzzfm8464[address] [place], [place] [address]Dr. Airam Tripathi CAST NONE SEEN Normal NONE SEEN [facility] Comment on above: Performed By: #### U AMIC ####[facility] Jwjnmjmihy[address]180[address] [place], [place] [address]Dr. Airam Tripathi Clarity (U) CLEAR Normal CLEAR [facility] Comment on above: Performed By: #### U AMIC ####[facility] Krytlnluxb022[address] [place], [place] [address]Dr. Airam Tripathi Color (U) LT. YELLOW Normal YELLOW [facility] Comment on above: Performed By: #### U AMIC ####[facility] Opbvcdrwuy2715[address] [place], [place] [address]Dr. Airam Tripathi Crystals LM Nom (Urine sed) NONE SEEN Normal NONE SEEN [facility] Comment on above: Performed By: #### U AMIC ####[facility] Jxkfhdztsf63[address] [place], [place] [address]Dr. Airam Tripathi Epithelial cells LM Ql (Urine sed) RARE Normal NONE SEEN /RARE [facility] Comment on above: Performed By: #### U AMIC ####[facility] Supcsieyfz0750[address] [place], [place] [address]Dr. Airam Tripathi Glucose Ql (U) Negative Normal NEGATIVE [facility] Comment on above: Performed By: #### U AMIC ####[facility] Pwuydiyefk430[address] [place], [place] [address]Dr. Airam Tripathi Hemoglobin Ql (U) Negative Normal NEGATIVE [facility] Comment on above: Performed By: #### U AMIC ####[facility] Dkbaxmmski260[address] [place] [address]Dr. Selenaneil Tripathi Ketones Ql (U) Negative Normal NEGATIVE [facility] Comment on above: Performed By: #### U AMIC ####[facility] Ncknskompr7025 [place] [address]Dr. Airam Tripathi LEUKOCYTES Negative Normal NEGATIVE [facility] Comment on above: Performed By: #### U AMIC ####[facility] Rkfecsgphy9731 [place] [address]Dr. Airam Tripathi MUCOUS NONE SEEN Normal NONE SEEN [facility] Comment on above: Performed By: #### U AMIC ####[facility] Srsngawbmg075[address] [place], [place] [address]Dr. Airam Tripathi Nitrite Ql (U) Negative Normal NEGATIVE [facility] Comment on above: Performed By: #### U AMIC ####[facility] Qnpthvnalk04[address] [place], [place] [address]Dr. Airam Tripathi pH (U) 7.0 [pH] Normal 5-9 [facility] Comment on above: Performed By: #### U AMIC ####[facility] Ghpenppcgx[address] [place], [place] [address]Dr. Airam Tripathi RBC 0-2 Normal 0-2 [facility] Comment on above: Performed By: #### U AMIC ####[facility] Jhpvtnfgex454[address] [place], [place] [address]Dr. Airam Tripathi SPEC GRAVITY 1.015 Normal 1.005-<=1. 025 [facility] Comment on above: Performed By: #### U AMIC ####[facility] Labrpfohbv16[address] [place], [place] [address]Dr. Airam Tripathi UA PROTEIN Negative Normal NEGATIVE/ TRACE [facility] Comment on above: Performed By: #### U AMIC ####[facility] Ujgcbxvqcu[address] [place], [place] [address]Dr. Airam Tripathi Urobilinogen Qn (U) 0.2 {Ligia'U}/dL Normal 0.2 - 1. 0 [facility] Comment on above: Performed By: #### U AMIC ####[facility] Agakpkdzrr[address] [place] [address]Dr. Airam Tripathi WBC NONE SEEN Normal NONE SEEN [facility] Comment on above: Performed By: #### U AMIC ####[facility] [address] [place] [address]Dr. Ariam Tripathi XR CHEST 1 Von 10-24-2022 XR CHEST 1 V Normal [facility] CBC AUTO DIFFon 10-19-2022 BASO # 0.0 103/ul Normal 0.0-0.1 [facility] Comment on above: Performed By: #### C BC ####[facility] Gbdirspptk[address] [place], [place] [address]Dr. Airam Tripathi Basophils/100 WBC (Bld) 0.5 % Normal 0.2-2.0 [facility] Comment on above: Performed By: #### C BC ####[facility] Jtpbppzlfw48[address] [place], [place] [address]Dr. Airam Tripathi EO # 0.3 103/ul Normal 0.0-0.7 [facility] Comment on above: Performed By: #### C BC ####[facility] Wewvyxulkd2026[address] [place], [place] [address]Dr. Airam Tripathi Eosinophils/100 WBC (Bld) 3.3 % Normal 0.9-7.0 [facility] Comment on above: Performed By: #### C BC ####[facility] Bampspytsv6434[address] [place], [place] [address]Dr. Airam Tripathi Erythrocyte distribution width (RBC) [Ratio] 15.0 % Normal 11.0-15.0 [facility] Comment on above: Performed By: #### C BC ####[facility] Bozubpoibq07[address] [place], [place] [address]Dr. Airam Tripathi Hematocrit (Bld) [Volume fraction] 32.9 % Critically low 36.0-48.0 [facility] Comment on above: Performed By: #### C BC ####[facility] Ubhivibnll2210[address] [place], [place] [address]Dr. Airam Tripathi Hemoglobin (Bld) [Mass/Vol] 10.1 g/dL Critically low 12.0-16.0 [facility] Comment on above: Performed By: #### C BC ####[facility] Uzjazbwowg[address] [place] [address]DrKianna Tripathi IG # 0.04 10e3/ul Critically high 0.00-0.03 [facility] Comment on above: Performed By: #### C BC ####[facility] Kivgqvkzic5622 [place] [address]DrKianna Tripathi IG % 0.5 % Normal 0.0-0.5 [facility] Comment on above: Performed By: #### C BC ####[facility] Aewhqopizo6838[address] [place], [place] [address]DrKianna Tripathi LYMPH # 1.5 103/ul Normal 1.2-3.8 [facility] Comment on above: Performed By: #### C BC ####[facility] Kzprztymcs9[address] [place], [place] [address]DrKianna Tripathi Lymphocytes/100 WBC (Bld) 18.1 % Critically low 20.5-60.0 [facility] Comment on above: Performed By: #### C BC ####[facility] Zkfmmfobwl1320[address] [place], [place] [address]DrKianna Selenaneil Tripathi MANUAL DIFF REQ NO Normal [facility] Comment on above: Performed By: #### C BC ####[facility] Rxzxazbuea529[address] [place], [place] [address]DrKianna Tripathi MCH (RBC) [Entitic mass] 28.3 pg Normal 26.7-34.0 [facility] Comment on above: Performed By: #### C BC ####[facility] Svpztmduvb0699[address] [place], [place] [address]DrKianna Tripathi MCHC (RBC) [Mass/Vol] 30.7 g/dL Normal 29.9-35.2 [facility] Comment on above: Performed By: #### C BC ####[facility] Iiyiiznuex766[address] [place], [place] [address]DrKianna Tripathi MCV (RBC) [Entitic vol] 92.2 fL Normal 81.0-99.0 [facility] Comment on above: Performed By: #### C BC ####[facility] Cgmuwvvqsf[address] [place] [address] Airam Tripathi MONO # 0.7 103/ul Normal 0.3-0.8 [facility] Comment on above: Performed By: #### C BC ####[facility] Ggcjdeswic[address] [place] [address]DrKianna Tripathi Monocytes/100 WBC (Bld) 7.7 % Normal 1.7-12.0 [facility] Comment on above: Performed By: #### C BC ####[facility] Cfwotszvcf6585[address] [place], [place] [address]DrKianna Airam Tripathi NEUT # 5.9 103/ul Normal 1.4-6.5 [facility] Comment on above: Performed By: #### C BC ####[facility] Qcmbxxxrnv8288[address] [place], [place] [address]DrKianna Tripathi Neutrophils/100 WBC (Bld) 69.9 % Normal 43.0-75.0 [facility] Comment on above: Performed By: #### C BC ####[facility] Ftcsxunxax4208[address] [place], [place] [address]DrKianna Selenaneil Tripathi Platelet mean volume (Bld) [Entitic vol] 9.3 fL Critically low 9.5-13.5 [facility] Comment on above: Performed By: #### C BC ####[facility] Parmslzmhn566[address] [place], [place] [address]DrKianna Tripathi PLT 293 103/ul Normal 150-450 [facility] Comment on above: Performed By: #### C BC ####[facility] Xzcstzxlbc0313[address] [place], [place] [address]DrKianna Tripathi RBC 3.57 106/ul Critically low 4.20-5.40 [facility] Comment on above: Performed By: #### C BC ####[facility] Aqkxtzsidf773[address] [place], [place] [address]DrKianna Tripathi WBC 8.4 103/ul Normal 4.0-11.0 [facility] Comment on above: Performed By: #### C BC ####[facility] Khvhyrplvx6[address] [place] [address]Dr. Airam Tripathi PROF 14(COMP METB)on 023 Albumin [Mass/Vol] 3.1 g/dL Critically low 3.4-5.0 [facility] Comment on above: Performed By: #### C MP ####[facility] Wcemopaomq3[address] [place] [address]Dr. Airam Tripathi Albumin/Globulin [Mass ratio] 0.9 {ratio} Normal [facility] Comment on above: Performed By: #### C MP ####[facility] Ioieiuimie2124 [place] [address]Dr. Airam Tripathi ALP [Catalytic activity/Vol] 117 U/L Critically high 46-116 [facility] Comment on above: Performed By: #### C MP ####[facility] Jgibevuxzs0014[address] [place], [place] [address]Dr. Airam Tripathi ALT [Catalytic activity/Vol] 24 U/L Normal 14-59 [facility] Comment on above: Performed By: #### C MP ####[facility] Sebwzcizbf7777[address] [place], [place] [address]Dr. Airam Tripathi Anion gap [Moles/Vol] 11.1 mmol/L Normal Th [facility] Comment on above: Performed By: #### C MP ####[facility] Rojsncliql1398 [place] [address]Dr. Airam Tripathi AST [Catalytic activity/Vol] 22 U/L Normal 15-37 [facility] Comment on above: Performed By: #### C MP ####[facility] Nnszyjyptd32[address] [place] [address]Dr. Airam Tripathi Bilirubin [Mass/Vol] 0.2 mg/dL Normal 0.2-1.0 [facility] Comment on above: Performed By: #### C MP ####[facility] Dnfppuotcx6357 [place] [address]Dr. Airam Tripathi Calcium [Mass/Vol] 8.4 mg/dL Critically low 8.5-10.1 Th [facility] Comment on above: Performed By: #### C MP ####[facility] Yfnstxsmst2140 [place] [address]Dr. Airam Deuce Chloride [Moles/Vol] 103 mmol/L Normal 98-107 [facility] Comment on above: Performed By: #### C MP ####[facility] Mdfuuyjzef1709 [place] [address]Dr. Airam Deuce CO2 [Moles/Vol] 25.0 mmol/L Normal 21.0-32.0 [facility] Comment on above: Performed By: #### C MP ####[facility] Rqnuhwxxvg389[address] [place], [place] [address]Dr. Airam Deuce Creatinine [Mass/Vol] 1.27 mg/dL Critically high 0.55-1.02 [facility] Comment on above: Performed By: #### C MP ####[facility] Kswaalatkh9837[address] [place], [place] [address]Dr. Airam Deuce EGFR-AF LUXEMBOURGER 52 mL/min/1.73m2 Critically low >=60 [facility] Comment on above: Performed By: #### C MP ####[facility] Ubhlejxtqz0004[address] [place], [place] [address]Dr. Airam Deuce EGFR-NON AF LUXEMBOURGER 43 mL/min/1.73m2 Critically low >=60 [facility] Comment on above: Performed By: #### C MP ####[facility] Ljuvpcmyyp148[address] [place], [place] [address]Dr. Airam Deuce Globulin (S) [Mass/Vol] 3.3 g/dL Normal [facility] Comment on above: Performed By: #### C MP ####[facility] Wdxvdybirb507[address] [place], [place] [address]Dr. Airam Tripathi Glucose [Mass/Vol] 90 mg/dL Normal 74-106 [facility] Comment on above: Performed By: #### C MP ####[facility] Rstsoceoou917[address] [place], [place] [address]Dr. Airam Tripathi Potassium [Moles/Vol] 5.1 mmol/L Normal 3.5-5.1 [facility] Comment on above: Performed By: #### C MP ####[facility] Ypaxsytkyi049[address] [place], [place] [address]Dr. Airam Tripathi Protein [Mass/Vol] 6.4 g/dL Normal 6.4-8.2 [facility] Comment on above: Performed By: #### C MP ####[facility] Jnqysytyqb500[address] [place], [place] [address]Dr. Airam Tripathi Sodium [Moles/Vol] 134 mmol/L Critically low 136-145 Th [facility] Comment on above: Performed By: #### C MP ####[facility] Hzzdewdavv8488[address] [place], [place] [address]Dr. Airam Tripathi Urea nitrogen [Mass/Vol] 33.0 mg/dL Critically high 7.0-18.0 [facility] Comment on above: Performed By: #### C MP ####[facility] Aowzswokmm8447[address] [place], [place] [address]Dr. Airam Tripathi Urea nitrogen/Creatinine [Mass ratio] 26.0 mg/mg Normal [facility] Comment on above: Performed By: #### C MP ####[facility] Yfjriqnbsm365[address] [place], [place] [address]Dr. Airam Tripathi OSMOLALITYon 10-15-2022 Osmolality [Osmolality] 272 mosm/kg Critically low 275-295 [facility] Comment on above: Performed By: #### O SMO ####[facility] Xdyhoiamjk387[address] [place], [place] [address]Dr. Airam Tripathi BNPon 10-12-2022 Natriuretic peptide B (Bld) [Mass/Vol] 1337.0 pg/mL Critically high <=900.0 [facility] Comment on above: Performed By: #### B COPYHOLDER ####[facility] Eulvgdiwqd3550[address] [place], [place] [address]Dr. Airam Tripathi CBC AUTO DIFFon 10-12-2022 BASO # 0.0 103/ul Normal 0.0-0.1 [facility] Comment on above: Performed By: #### C BC ####[facility] Euvcsjbalv47[address] [place] [address]Dr. Airam Tripathi Basophils/100 WBC (Bld) 0.6 % Normal 0.2-2.0 [facility] Comment on above: Performed By: #### C BC ####[facility] Uvigrvirif13[address] [place] [address]Dr. Airam Tripathi EO # 0.2 103/ul Normal 0.0-0.7 [facility] Comment on above: Performed By: #### C BC ####[facility] Abdhsnwupg2814[address] [place], [place] [address]Dr. Airam Tripathi Eosinophils/100 WBC (Bld) 2.3 % Normal 0.9-7.0 [facility] Comment on above: Performed By: #### C BC ####[facility] Varkzeiejr6480[address] [place], [place] [address]Dr. Airam Tripathi Erythrocyte distribution width (RBC) [Ratio] 15.1 % Critically high 11.0-15.0 [facility] Comment on above: Performed By: #### C BC ####[facility] Orloerlvzw114[address] [place], [place] [address]Dr. Airam Tripathi Hematocrit (Bld) [Volume fraction] 35.9 % Critically low 36.0-48.0 [facility] Comment on above: Performed By: #### C BC ####[facility] Sljbdqwwyr2115[address] [place], [place] [address]Dr. Airam Tripathi Hemoglobin (Bld) [Mass/Vol] 11.4 g/dL Critically low 12.0-16.0 [facility] Comment on above: Performed By: #### C BC ####[facility] Xrcickpkgk6626[address] [place], [place] [address]Dr. Airam Tripathi IG # 0.03 10e3/ul Normal 0.00-0.03 [facility] Comment on above: Performed By: #### C BC ####[facility] Oxdytbzlwg620[address] [place], [place] [address]Dr. Airam Tripathi IG % 0.5 % Normal 0.0-0.5 [facility] Comment on above: Performed By: #### C BC ####[facility] Ssuodwjjrd[address] [place] [address]Dr. Airam Tripathi LYMPH # 1.1 103/ul Critically low 1.2-3.8 [facility] Comment on above: Performed By: #### C BC ####[facility] Aezrgydfjb5620 [place] [address]Dr. Airam Tripathi Lymphocytes/100 WBC (Bld) 17.2 % Critically low 20.5-60.0 [facility] Comment on above: Performed By: #### C BC ####[facility] Vewwklplmf70[address] [place] [id number]. Airam Deuce MANUAL DIFF REQ NO Normal [facility] Comment on above: Performed By: #### C BC ####[facility] Krjxdxqtar5585 [place] [id number]. Airam Tripathi MCH (RBC) [Entitic mass] 28.8 pg Normal 26.7-34.0 [facility] Comment on above: Performed By: #### C BC ####[facility] Izunifqila3720 [place] [id number]. Airam Tripathi MCHC (RBC) [Mass/Vol] 31.8 g/dL Normal 29.9-35.2 [facility] Comment on above: Performed By: #### C BC ####[facility] Fqfmhqxyst8563 [place] [id number]. Airam Tripathi MCV (RBC) [Entitic vol] 90.7 fL Normal 81.0-99.0 [facility] Comment on above: Performed By: #### C BC ####[facility] Xqztvumyzf2146 [place] [address]Dr. Airam Tripathi MONO # 0.5 103/ul Normal 0.3-0.8 [facility] Comment on above: Performed By: #### C BC ####[facility] Ofboafpbgc8255 [place] [id number]. Airam Deuce Monocytes/100 WBC (Bld) 7.7 % Normal 1.7-12.0 [facility] Comment on above: Performed By: #### C BC ####[facility] Lipnumqgpy5928 [place] [id number]. Airam Tripathi NEUT # 4.7 103/ul Normal 1.4-6.5 [facility] Comment on above: Performed By: #### C BC ####[facility] Vwoastdjui[address] [place] [phone]. Airam Tripathi Neutrophils/100 WBC (Bld) 71.7 % Normal 43.0-75.0 [facility] Comment on above: Performed By: #### C BC ####[facility] Dbwtehttxx5192 [place] [address]Dr. Airam Tripathi Platelet mean volume (Bld) [Entitic vol] 8.2 fL Critically low 9.5-13.5 [facility] Comment on above: Performed By: #### C BC ####[facility] Dalxlekwmq44[address] [place] [address]Dr. Airam Deuce PLT 292 103/ul Normal 150-450 [facility] Comment on above: Performed By: #### C BC ####[facility] Jwcdufebqc4126 [place] [address]Dr. Airam Deuce RBC 3.96 106/ul Critically low 4.20-5.40 [facility] Comment on above: Performed By: #### C BC ####[facility] Hpfqgkbunt30[address] [place] [address]Dr. Airam Tripathi WBC 6.6 103/ul Normal 4.0-11.0 [facility] Comment on above: Performed By: #### C BC ####[facility] Nxbussmmbi20[address] [place] [address]Dr. Airam Tripathi PROF 14(COMP METB)on 023 Albumin [Mass/Vol] 3.3 g/dL Critically low 3.4-5.0 [facility] Comment on above: Performed By: #### C MP ####[facility] Dxcxwlkrqc5311 [place] [id number]. Airam Tripathi Albumin/Globulin [Mass ratio] 0.9 {ratio} Normal [facility] Comment on above: Performed By: #### C MP ####[facility] Afvvskbdfm0882 [place] [id number]. Airam Tripathi ALP [Catalytic activity/Vol] 130 U/L Critically high 46-116 [facility] Comment on above: Performed By: #### C MP ####[facility] Qwjthmugwq6055 [place] [id number]. Airam Tripathi ALT [Catalytic activity/Vol] 23 U/L Normal 14-59 [facility] Comment on above: Performed By: #### C MP ####[facility] Xmohyzphem32[address] [place] [address]Dr. Airam Tripathi Anion gap [Moles/Vol] 11.7 mmol/L Normal Th e [facility] Comment on above: Performed By: #### C MP ####[facility] Hdmbichiup5[address] [place] [address]Dr. Airam Tripathi AST [Catalytic activity/Vol] 23 U/L Normal 15-37 [facility] Comment on above: Performed By: #### C MP ####[facility] Dcvwxjozat8410 [place] [address]Dr. Airam Tripathi Bilirubin [Mass/Vol] 0.3 mg/dL Normal 0.2-1.0 [facility] Comment on above: Performed By: #### C MP ####[facility] Jrervxbwgm7372 [place] [address]Dr. Airam Tripathi Calcium [Mass/Vol] 8.7 mg/dL Normal 8.5-10.1 [facility] Comment on above: Performed By: #### C MP ####[facility] Nuuqiufqbj7708 [place] [address]Dr. Airam Tripathi Chloride [Moles/Vol] 99 mmol/L Normal 98-107 [facility] Comment on above: Performed By: #### C MP ####[facility] Mywvnptqyf5387 [place] [address]Dr. Airam Tripathi CO2 [Moles/Vol] 28.5 mmol/L Normal 21.0-32.0 [facility] Comment on above: Performed By: #### C MP ####[facility] Ljcjehgcvc7717 [place] [address]Dr. Airam Tripathi Creatinine [Mass/Vol] 1.06 mg/dL Critically high 0.55-1.02 [facility] Comment on above: Performed By: #### C MP ####[facility] Tmslrspkfo3957[address] [place], [place] [address]Dr. Airam Tripathi EGFR-AF LUXEMBOURGER >60 Normal >=60 [facility] Comment on above: Performed By: #### C MP ####[facility] Ggxpecgchq9704[address] [place], [place] [address]Dr. Airam Tripathi EGFR-NON AF LUXEMBOURGER 53 mL/min/1.73m2 Critically low >=60 [facility] Comment on above: Performed By: #### C MP ####[facility] Gjdyawjyry793[address] [place], [place] [address]Dr. Airam Tripathi Globulin (S) [Mass/Vol] 3.5 g/dL Normal [facility] Comment on above: Performed By: #### C MP ####[facility] Posmlgnocs312[address] [place], [place] [address]Dr. Airam Tripathi Glucose [Mass/Vol] 79 mg/dL Normal 74-106 [facility] Comment on above: Performed By: #### C MP ####[facility] Cawgvcqyil818[address] [place], [place] [address]Dr. Airam Tripathi Potassium [Moles/Vol] 4.2 mmol/L Normal 3.5-5.1 [facility] Comment on above: Performed By: #### C MP ####[facility] Ygpsqjugxg257[address] [place], [place] [address]Dr. Airam Tripathi Protein [Mass/Vol] 6.8 g/dL Normal 6.4-8.2 [facility] Comment on above: Performed By: #### C MP ####[facility] Sopgscrqpr8867[address] [place], [place] [address]Dr. Airam Tripathi Sodium [Moles/Vol] 135 mmol/L Critically low 136-145 Th [facility] Comment on above: Performed By: #### C MP ####[facility] Jjatabusai278[address] [place], [place] [address]Dr. Airam Tripathi Urea nitrogen [Mass/Vol] 16.0 mg/dL Normal 7.0-18.0 [facility] Comment on above: Performed By: #### C MP ####[facility] Hhvzrprbwq2130 [place] [address]Dr. Airam Tripathi Urea nitrogen/Creatinine [Mass ratio] 15.1 mg/mg Normal [facility] Comment on above: Performed By: #### C MP ####[facility] Rswnorwdqe1497[address] [place], [place] [address]Dr. Airam Tripathi XR CHEST 1 Von 10-12-2022 XR CHEST 1 V Normal [facility] PRBC LEUKOREDUCEDon 10-10-19 PRBC LEUKOREDUCED Normal [facility] Comment on above: Performed By: #### P RBC ####[facility] Exnukhhcxf313[address] [place], [place] [address]Dr. Airam Tripathi CULTURE URINEon 10-08-2022 CULTURE URINE Normal [facility] Comment on above: Performed By: #### U RCX ####[facility] Ygmlywnaof6832[address] [place], [place] [address]Dr. Airam Tripathi OSMOLALITYon 10-08-2022 Osmolality [Osmolality] 282 mosm/kg Normal 275-295 [facility] Comment on above: Performed By: #### O SMO ####[facility] Vnbbgkggci998[address] [place], [place] [address]Dr. Airam Tripathi CBC AUTO DIFFon 10-07-2022 BASO # 0.0 103/ul Normal 0.0-0.1 [facility] Comment on above: Performed By: #### C BC ####[facility] Vpwvwdibjp7150[address] [place], [place] [address]Dr. Airam Deuce Basophils/100 WBC (Bld) 0.3 % Normal 0.2-2.0 [facility] Comment on above: Performed By: #### C BC ####[facility] Zssudqoixa28[address] [place] [address]Dr. Airam Deuce EO # 0.2 103/ul Normal 0.0-0.7 [facility] Comment on above: Performed By: #### C BC ####[facility] Jgplhmmabw4302 [place] [id number]. Airam Tripathi Eosinophils/100 WBC (Bld) 3.4 % Normal 0.9-7.0 [facility] Comment on above: Performed By: #### C BC ####[facility] Sqwsnsusqg9693 [place] [address]Dr. Airam Tripathi Erythrocyte distribution width (RBC) [Ratio] 15.2 % Critically high 11.0-15.0 [facility] Comment on above: Performed By: #### C BC ####[facility] Iusymhpovo858[address] [place], [place] [address]Dr. Airam Tripathi Hematocrit (Bld) [Volume fraction] 31.3 % Critically low 36.0-48.0 [facility] Comment on above: Performed By: #### C BC ####[facility] Vzhtzzeiwz2757[address] [place], [place] [address]Dr. Airam Tripathi Hemoglobin (Bld) [Mass/Vol] 9.9 g/dL Critically low 12.0-16.0 [facility] Comment on above: Performed By: #### C BC ####[facility] Ogvlikqarn4457[address] [place], [place] [address]Dr. Airam Tripathi IG # 0.03 10e3/ul Normal 0.00-0.03 [facility] Comment on above: Performed By: #### C BC ####[facility] Cddjmcibkk2933[address] [place], [place] [address]Dr. Airam Tripathi IG % 0.4 % Normal 0.0-0.5 [facility] Comment on above: Performed By: #### C BC ####[facility] Jjdoynynjc741[address] [place], [place] [address]Dr. Airam Tripathi LYMPH # 1.3 103/ul Normal 1.2-3.8 [facility] Comment on above: Performed By: #### C BC ####[facility] Jloahpzwoe[address] [place], [place] [address]Dr. Airam Tripathi Lymphocytes/100 WBC (Bld) 19.0 % Critically low 20.5-60.0 [facility] Comment on above: Performed By: #### C BC ####[facility] Zgelthaicj[address] [place] [address]Dr. Airam Tripathi MANUAL DIFF REQ NO Normal [facility] Comment on above: Performed By: #### C BC ####[facility] Onzdxpsase0906 [place] [id number]. Airam Tripathi MCH (RBC) [Entitic mass] 28.1 pg Normal 26.7-34.0 [facility] Comment on above: Performed By: #### C BC ####[facility] Jfcpsotxnw[address] [place], [place] [address]Dr. Airam Tripathi MCHC (RBC) [Mass/Vol] 31.6 g/dL Normal 29.9-35.2 [facility] Comment on above: Performed By: #### C BC ####[facility] Gfoocjnylm[address] [place], [place] [address]Dr. Airam Deuce MCV (RBC) [Entitic vol] 88.9 fL Normal 81.0-99.0 [facility] Comment on above: Performed By: #### C BC ####[facility] Rzpkvurfbn2[address] [place], [place] [address]Dr. Airam Tripathi MONO # 0.6 103/ul Normal 0.3-0.8 [facility] Comment on above: Performed By: #### C BC ####[facility] Leurdgtpze7[address] [place], [place] [address]Dr. Selenaneil Tripathi Monocytes/100 WBC (Bld) 9.0 % Normal 1.7-12.0 [facility] Comment on above: Performed By: #### C BC ####[facility] Cpffarfwie[address] [place], [place] [address]Dr. Airam Tripathi NEUT # 4.5 103/ul Normal 1.4-6.5 [facility] Comment on above: Performed By: #### C BC ####[facility] Lethggougq023[address] [place], [place] [address]Dr. Airam Tripathi Neutrophils/100 WBC (Bld) 67.9 % Normal 43.0-75.0 [facility] Comment on above: Performed By: #### C BC ####[facility] C[address]zd[address]qrv[address] [place] [address]Dr. Airam Tripathi Platelet mean volume (Bld) [Entitic vol] 9.1 fL Critically low 9.5-13.5 [facility] Comment on above: Performed By: #### C BC ####[facility] Pimyuzvqoo38[address] [place] [address]Dr. Airam Tripathi PLT 256 103/ul Normal 150-450 [facility] Comment on above: Performed By: #### C BC ####[facility] Wcdhucfmtl9862 [place] [address]Dr. Airam Tripathi RBC 3.52 106/ul Critically low 4.20-5.40 [facility] Comment on above: Performed By: #### C BC ####[facility] Olrfzsaach26[address] [place] [address]Dr. Airam Tripathi WBC 6.7 103/ul Normal 4.0-11.0 [facility] Comment on above: Performed By: #### C BC ####[facility] Ustetqomey78[address] [place], [place] [address]Dr. Airam Tripathi PROF 14(COMP METB)on 023 Albumin [Mass/Vol] 2.8 g/dL Critically low 3.4-5.0 [facility] Comment on above: Performed By: #### C MP ####[facility] Vcmxwcvaum24[address] [place] [address]Dr. Airam Tripathi Albumin/Globulin [Mass ratio] 0.9 {ratio} Normal [facility] Comment on above: Performed By: #### C MP ####[facility] Satfuhykvi28[address] [place] [address]Dr. Airam Tripathi ALP [Catalytic activity/Vol] 118 U/L Critically high 46-116 [facility] Comment on above: Performed By: #### C MP ####[facility] Zmmbyhncfm9413 [place] [address]Dr. Airam Tripathi ALT [Catalytic activity/Vol] 23 U/L Normal 14-59 [facility] Comment on above: Performed By: #### C MP ####[facility] Hwakwdoxpi0373 [place] [id number]. Airam Tripathi Anion gap [Moles/Vol] 12.5 mmol/L Normal [facility] Comment on above: Performed By: #### C MP ####[facility] Nfatoabzpa9510 [place] [id number]. Airam Tripathi AST [Catalytic activity/Vol] 21 U/L Normal 15-37 [facility] Comment on above: Performed By: #### C MP ####[facility] Dfppcfwsdi0798 [place] [id number]. Airam Tripathi Bilirubin [Mass/Vol] 0.4 mg/dL Normal 0.2-1.0 [facility] Comment on above: Performed By: #### C MP ####[facility] Fmaclbrpcr4649 [place] [phone]. Airam Tripathi Calcium [Mass/Vol] 8.2 mg/dL Critically low 8.5-10.1 [facility] Comment on above: Performed By: #### C MP ####[facility] Gwolfwooro9205[address] [place], [place] [address]Dr. Airam Tripathi Chloride [Moles/Vol] 99 mmol/L Normal 98-107 [facility] Comment on above: Performed By: #### C MP ####[facility] Xkmjnbnutb9892 [place] [phone]. Airam Tripathi CO2 [Moles/Vol] 24.9 mmol/L Normal 21.0-32.0 [facility] Comment on above: Performed By: #### C MP ####[facility] Yynzqxcnbf6865 [place] [phone]. Airam Tripathi Creatinine [Mass/Vol] 1.61 mg/dL Critically high 0.55-1.02 [facility] Comment on above: Performed By: #### C MP ####[facility] Rwsqisyguj7995 [place] [id number]. Airam Tripathi EGFR-AF LUXEMBOURGER 40 mL/min/1.73m2 Critically low >=60 [facility] Comment on above: Performed By: #### C MP ####[facility] Ulkugmslfe3000 [place] [id number]. Airam Tripathi EGFR-NON AF LUXEMBOURGER 33 mL/min/1.73m2 Critically low >=60 [facility] Comment on above: Performed By: #### C MP ####[facility] Jhyqobiudi0196 [place] [id number]. Airam Tripathi Globulin (S) [Mass/Vol] 3.2 g/dL Normal [facility] Comment on above: Performed By: #### C MP ####[facility] Fzapinyfly[address] [place] [phone]. Airam Tripathi Glucose [Mass/Vol] 67 mg/dL Critically low 74-106 [facility] Comment on above: Performed By: #### C MP ####[facility] Vdcsjxiobm1420 [place] [address]Dr. Airam Tripathi Potassium [Moles/Vol] 5.4 mmol/L Critically high 3.5-5.1 [facility] Comment on above: Performed By: #### C MP ####[facility] Mlyfbegehd9[address] [place], [place] [address]Dr. Airam Tripathi Protein [Mass/Vol] 6.0 g/dL Critically low 6.4-8.2 [facility] Comment on above: Performed By: #### C MP ####[facility] Fuhucnzhre[address] [place], [place] [address]Dr. Airam Tripathi Sodium [Moles/Vol] 131 mmol/L Critically low 136-145 [facility] Comment on above: Performed By: #### C MP ####[facility] Utchvuyupa[address] [place], [place] [address]Dr. Airam Tripathi Urea nitrogen [Mass/Vol] 43.0 mg/dL Critically high 7.0-18.0 [facility] Comment on above: Performed By: #### C MP ####[facility] Pucwthrtav2[address] [place], [place] [address]Dr. Airam Tripathi Urea nitrogen/Creatinine [Mass ratio] 26.7 mg/mg Normal [facility] Comment on above: Performed By: #### C MP ####[facility] Pswubbribw2971 [place] [address]Dr. Airam Tripathi CBC AUTO DIFFon 10-06-2022 BASO # 0.0 103/ul Normal 0.0-0.1 [facility] Comment on above: Performed By: #### C BC ####[facility] Nlftapphom3449 [place] [address]Dr. Airam Tripathi Basophils/100 WBC (Bld) 0.3 % Normal 0.2-2.0 [facility] Comment on above: Performed By: #### C BC ####[facility] Czddlimspc[address] [place], [place] [address]Dr. Airam Tripathi EO # 0.2 103/ul Normal 0.0-0.7 [facility] Comment on above: Performed By: #### C BC ####[facility] Tgxdwfkffg708[address] [place], [place] [address]Dr. Airam Tripathi Eosinophils/100 WBC (Bld) 3.1 % Normal 0.9-7.0 [facility] Comment on above: Performed By: #### C BC ####[facility] Cqmvsojubo8648[address] [place], [place] [address]Dr. Airam Tripathi Erythrocyte distribution width (RBC) [Ratio] 15.0 % Normal 11.0-15.0 [facility] Comment on above: Performed By: #### C BC ####[facility] Izlefjymyi7547[address] [place], [place] [address]Dr. Airam Tripathi Hematocrit (Bld) [Volume fraction] 30.9 % Critically low 36.0-48.0 [facility] Comment on above: Performed By: #### C BC ####[facility] Ayvzxwlmrp513[address] [place], [place] [address]Dr. Airam Tripathi Hemoglobin (Bld) [Mass/Vol] 10.1 g/dL Critically low 12.0-16.0 [facility] Comment on above: Result Comment: BIJU ENT RECIEVED 2 UNITS PRBC'S Performed By: #### C BC ####[facility] Xrcgmhxjzs6540[address] [place], [place] [address]Dr. Airam Tripathi IG # 0.03 10e3/ul Normal 0.00-0.03 [facility] Comment on above: Performed By: #### C BC ####[facility] Ezcqintvzi4198 [place] [address]DrKianna Airam Tripathi IG % 0.4 % Normal 0.0-0.5 [facility] Comment on above: Performed By: #### C BC ####[facility] Gwsbcdsmtj6432 [place] [address]DrKianna Airam Deuce LYMPH # 1.1 103/ul Critically low 1.2-3.8 [facility] Comment on above: Performed By: #### C BC ####[facility] Unopfztxul317[address] [place], [place] [address]DrKianna Airam Deuce Lymphocytes/100 WBC (Bld) 14.4 % Critically low 20.5-60.0 [facility] Comment on above: Performed By: #### C BC ####[facility] Xvkvbqpplv959[address] [place], [place] [address]DrKianna Airam Deuce MANUAL DIFF REQ NO Normal [facility] Comment on above: Performed By: #### C BC ####[facility] Nskmgoisfo7534[address] [place], [place] [address]DrKianna Airam Deuce MCH (RBC) [Entitic mass] 28.9 pg Normal 26.7-34.0 [facility] Comment on above: Performed By: #### C BC ####[facility] Nzvioqwfsa396[address] [place], [place] [address]DrKianna Airam Deuce MCHC (RBC) [Mass/Vol] 32.7 g/dL Normal 29.9-35.2 [facility] Comment on above: Performed By: #### C BC ####[facility] Crwlugqeqr906[address] [place], [place] [address]DrKianna Airam Deuce MCV (RBC) [Entitic vol] 88.3 fL Normal 81.0-99.0 [facility] Comment on above: Performed By: #### C BC ####[facility] Ajyjsuxooh0540[address] [place], [place] [address]DrKianna Tripathi MONO # 0.6 103/ul Normal 0.3-0.8 [facility] Comment on above: Performed By: #### C BC ####[facility] Yhdnupgfkm6518 [place] [address]Dr. Airam Tripathi Monocytes/100 WBC (Bld) 7.8 % Normal 1.7-12.0 [facility] Comment on above: Performed By: #### C BC ####[facility] Rornwkzqfm5338 [place] [address]Dr. Airam Tripathi NEUT # 5.5 103/ul Normal 1.4-6.5 [facility] Comment on above: Performed By: #### C BC ####[facility] Ymtgofldoi1906 [place] [address]Dr. Airam Tripathi Neutrophils/100 WBC (Bld) 74.0 % Normal 43.0-75.0 [facility] Comment on above: Performed By: #### C BC ####[facility] Flgbymesom[address] [place], [place] [address]Dr. Airam Tripathi Platelet mean volume (Bld) [Entitic vol] 9.2 fL Critically low 9.5-13.5 [facility] Comment on above: Performed By: #### C BC ####[facility] Vemztawznf9760[address] [place], [place] [address]Dr. Airam Tripathi PLT 275 103/ul Normal 150-450 [facility] Comment on above: Performed By: #### C BC ####[facility] Elgijrxfta4306 [place] [address]Dr. Airam Tripathi RBC 3.50 106/ul Critically low 4.20-5.40 [facility] Comment on above: Performed By: #### C BC ####[facility] Mpzvxvrvrb606[address] [place], [place] [address]Dr. Airam Tripathi WBC 7.4 103/ul Normal 4.0-11.0 [facility] Comment on above: Performed By: #### C BC ####[facility] Vgofmmauqw0838[address] [place], [place] [address]Dr. Airam Tripathi BASO # 0.0 103/ul Normal 0.0-0.1 [facility] Comment on above: Performed By: #### C BC ####[facility] Cirkfyjpsw7772 [place] [address]Dr. Airam Deuce Basophils/100 WBC (Bld) 0.4 % Normal 0.2-2.0 [facility] Comment on above: Performed By: #### C BC ####[facility] Wwbaugytis1514[address] [place], [place] [address]Dr. Airam Tripathi EO # 0.2 103/ul Normal 0.0-0.7 [facility] Comment on above: Performed By: #### C BC ####[facility] Tmytbzfohi265[address] [place], [place] [address]Dr. Airam Deuce Eosinophils/100 WBC (Bld) 4.5 % Normal 0.9-7.0 [facility] Comment on above: Performed By: #### C BC ####[facility] Rhoixqfstx9950[address] [place], [place] [address]Dr. Airam Tripathi Erythrocyte distribution width (RBC) [Ratio] 15.1 % Critically high 11.0-15.0 [facility] Comment on above: Performed By: #### C BC ####[facility] Gvvsooalzs4210[address] [place], [place] [address]Dr. Airam Tripathi Hematocrit (Bld) [Volume fraction] 23.0 % Critically low 36.0-48.0 [facility] Comment on above: Performed By: #### C BC ####[facility] Wyujsthovw633[address] [place], [place] [address]Dr. Airam Tripathi Hemoglobin (Bld) [Mass/Vol] 7.2 g/dL Critically low 12.0-16.0 [facility] Comment on above: Performed By: #### C BC ####[facility] Vvzfxyzuxf5816[address] [place], [place] [address]Dr. Selenaneil Tripathi IG # 0.02 10e3/ul Normal 0.00-0.03 [facility] Comment on above: Performed By: #### C BC ####[facility] Hbjmizwalw0124[address] [place], [place] [address]Dr. Airam Tripathi IG % 0.4 % Normal 0.0-0.5 [facility] Comment on above: Performed By: #### C BC ####[facility] Ytbzgfkged1289 [place] [address]Dr. Airam Deuce LYMPH # 1.0 103/ul Critically low 1.2-3.8 [facility] Comment on above: Performed By: #### C BC ####[facility] Uibaztcisq3531 [place] [address]Dr. Airam Deuce Lymphocytes/100 WBC (Bld) 22.5 % Normal 20.5-60.0 [facility] Comment on above: Performed By: #### C BC ####[facility] Cosnficnmi1494 [place] [address]DrKianna Selenaneil Tripathi MANUAL DIFF REQ NO Normal [facility] Comment on above: Performed By: #### C BC ####[facility] Jrydewbzzl498[address] [place], [place] [address]Dr. Airam Deuce MCH (RBC) [Entitic mass] 28.3 pg Normal 26.7-34.0 [facility] Comment on above: Performed By: #### C BC ####[facility] Ryeknhlfxp070[address] [place], [place] [address]Dr. Airam Tripathi MCHC (RBC) [Mass/Vol] 31.3 g/dL Normal 29.9-35.2 [facility] Comment on above: Performed By: #### C BC ####[facility] Wrqsxgsxcq954[address] [place], [place] [address]DrKianna Tripathi MCV (RBC) [Entitic vol] 90.6 fL Normal 81.0-99.0 [facility] Comment on above: Performed By: #### C BC ####[facility] Vywrmrrpxy87[address] [place], [place] [address]DrKianna Tripathi MONO # 0.5 103/ul Normal 0.3-0.8 [facility] Comment on above: Performed By: #### C BC ####[facility] Pmzcdrdddn6238[address] [place], [place] [address]Dr. Airam Tripathi Monocytes/100 WBC (Bld) 9.7 % Normal 1.7-12.0 [facility] Comment on above: Performed By: #### C BC ####[facility] Mrexjyujoi0999 [place] [address]Dr. Airam Tripathi NEUT # 2.9 103/ul Normal 1.4-6.5 [facility] Comment on above: Performed By: #### C BC ####[facility] Ylqqgvlssh3469 [place] [address]Dr. Airam Tripathi Neutrophils/100 WBC (Bld) 62.5 % Normal 43.0-75.0 [facility] Comment on above: Performed By: #### C BC ####[facility] Mfeonheban3273 [place] [address]Dr. Airam Tripathi Platelet mean volume (Bld) [Entitic vol] 8.9 fL Critically low 9.5-13.5 [facility] Comment on above: Performed By: #### C BC ####[facility] Inselnkjem9482 [place] [address]Dr. Airam Tripathi PLT 210 103/ul Normal 150-450 [facility] Comment on above: Performed By: #### C BC ####[facility] Eizvlirgvv7914 [place] [address]Dr. Airam Tripathi RBC 2.54 106/ul Critically low 4.20-5.40 [facility] Comment on above: Performed By: #### C BC ####[facility] Dpfvnmtemo0571 [place] [address]Dr. Airam Tripathi WBC 4.6 103/ul Normal 4.0-11.0 [facility] Comment on above: Performed By: #### C BC ####[facility] Wttjwitwid5640 [place] [id number]. Airam Tripathi OSMOLALITYon 10-06-2022 Osmolality [Osmolality] 279 mosm/kg Normal 275-295 [facility] Comment on above: Performed By: #### O SMO ####[facility] Yztwpewjgd2135 [place] [address]Dr. Airam Tripathi POINT OF CARE GLUCOSEon 09-24 Glucose [Mass/Vol] 72 mg/dL Critically low 74-106 [facility] Comment on above: Performed By: #### P OCGLUC ####[facility] Xaijikfljh4592 [place] [address]Dr. Airam Tripathi Glucose [Mass/Vol] 102 mg/dL Normal 74-106 [facility] Comment on above: Performed By: #### P OCGLUC ####[facility] Cktedrvclt9299 [place] [address]Dr. Airam Tripathi Glucose [Mass/Vol] 165 mg/dL Critically high 74-106 [facility] Comment on above: Performed By: #### P OCGLUC ####[facility] Volcrmgfre6738[address] [place], [place] [address]Dr. Airam Triptahi PROF 14(COMP METB)on 023 Albumin [Mass/Vol] 2.6 g/dL Critically low 3.4-5.0 [facility] Comment on above: Performed By: #### C MP ####[facility] Ghxtogyzio6918[address] [place], [place] [address]Dr. Airam Tripathi Albumin/Globulin [Mass ratio] 0.9 {ratio} Normal [facility] Comment on above: Performed By: #### C MP ####[facility] Xngcfljqyk788[address] [place], [place] [address]Dr. Airam Tripathi ALP [Catalytic activity/Vol] 107 U/L Normal 46-116 [facility] Comment on above: Performed By: #### C MP ####[facility] Mnlijstswz2526[address] [place], [place] [address]Dr. Airam Tripathi ALT [Catalytic activity/Vol] 22 U/L Normal 14-59 [facility] Comment on above: Performed By: #### C MP ####[facility] Ugxetrqpdl1518[address] [place], [place] [address]Dr. Airam Tripathi Anion gap [Moles/Vol] 10.0 mmol/L Normal [facility] Comment on above: Performed By: #### C MP ####[facility] Wlezelrzye786[address] [place], [place] [address]Dr. Airam Tripathi AST [Catalytic activity/Vol] 19 U/L Normal 15-37 [facility] Comment on above: Performed By: #### C MP ####[facility] Etxdfcralm5335 [place] [address]Dr. Airam Deuce Bilirubin [Mass/Vol] 0.2 mg/dL Normal 0.2-1.0 [facility] Comment on above: Performed By: #### C MP ####[facility] Atnexqlihy8864 [place] [address]Dr. Airam Deuce Calcium [Mass/Vol] 8.1 mg/dL Critically low 8.5-10.1 [facility] Comment on above: Performed By: #### C MP ####[facility] Xzgnuibgzp109[address] [place], [place] [address]Dr. Airam Deuce Chloride [Moles/Vol] 100 mmol/L Normal 98-107 [facility] Comment on above: Performed By: #### C MP ####[facility] Wlofwbkyub255[address] [place], [place] [address]Dr. Airam Deuce CO2 [Moles/Vol] 26.2 mmol/L Normal 21.0-32.0 [facility] Comment on above: Performed By: #### C MP ####[facility] Zqectwqsut1148[address] [place], [place] [address]Dr. Airam Deuce Creatinine [Mass/Vol] 1.90 mg/dL Critically high 0.55-1.02 [facility] Comment on above: Performed By: #### C MP ####[facility] Tohoetsazy8732[address] [place], [place] [address]Dr. Airam Deuce EGFR-AF LUXEMBOURGER 33 mL/min/1.73m2 Critically low >=60 [facility] Comment on above: Performed By: #### C MP ####[facility] Afcqnpkrkh7655[address] [place], [place] [address]Dr. Airam Tripathi EGFR-NON AF LUXEMBOURGER 27 mL/min/1.73m2 Critically low >=60 [facility] Comment on above: Performed By: #### C MP ####[facility] Cekzgnrlas4154[address] [place], [place] [address]Dr. Airam Tripathi Globulin (S) [Mass/Vol] 2.8 g/dL Normal [facility] Comment on above: Performed By: #### C MP ####[facility] Oimozwpsyx3364 [place] [address]Dr. Selenaneil Tripathi Glucose [Mass/Vol] 115 mg/dL Critically high 74-106 [facility] Comment on above: Performed By: #### C MP ####[facility] Vvyyryhbqo118[address] [place], [place] [address]Dr. Airam Tripathi Potassium [Moles/Vol] 5.2 mmol/L Critically high 3.5-5.1 [facility] Comment on above: Performed By: #### C MP ####[facility] Iqikxsqrsu9420[address] [place], [place] [address]Dr. Airam Tripathi Protein [Mass/Vol] 5.4 g/dL Critically low 6.4-8.2 [facility] Comment on above: Performed By: #### C MP ####[facility] Hwakohboal1855[address] [place], [place] [address]Dr. Airam Tripathi Sodium [Moles/Vol] 131 mmol/L Critically low 136-145 [facility] Comment on above: Performed By: #### C MP ####[facility] Kadmxjzjal4037[address] [place], [place] [address]Dr. Airam Tripathi Urea nitrogen [Mass/Vol] 41.0 mg/dL Critically high 7.0-18.0 [facility] Comment on above: Performed By: #### C MP ####[facility] Zczwkyfbyi5478[address] [place], [place] [address]Dr. Airam Tripathi Urea nitrogen/Creatinine [Mass ratio] 21.6 mg/mg Normal [facility] Comment on above: Performed By: #### C MP ####[facility] Fzhtdkgwhi7487[address] [place], [place] [address]Dr. Airam Tripathi TYPE AND SCREENon 10-06-2022 TYPE AND SCREEN Negative Normal [facility] Comment on above: Performed By: #### T NS ####[facility] Ndlknwijxi549[address] [place], [place] [address]Dr. Airam Tripathi CBC AUTO DIFFon 10-05-2022 BASO # 0.0 103/ul Normal 0.0-0.1 [facility] Comment on above: Performed By: #### C BC ####[facility] Hrydsrkvqt9594[address] [place], [place] [address]Dr. Airam Deuce Basophils/100 WBC (Bld) 0.5 % Normal 0.2-2.0 [facility] Comment on above: Performed By: #### C BC ####[facility] Pmhmvafhxn706[address] [place], [place] [address]Dr. Selenaneil Deuce EO # 0.2 103/ul Normal 0.0-0.7 [facility] Comment on above: Performed By: #### C BC ####[facility] Gsuzyyqywg4[address] [place], [place] [address]Dr. Airam Tripathi Eosinophils/100 WBC (Bld) 3.2 % Normal 0.9-7.0 [facility] Comment on above: Performed By: #### C BC ####[facility] Rpzuzthlep50[address] [place], [place] [address]Dr. Airam Tripathi Erythrocyte distribution width (RBC) [Ratio] 15.2 % Critically high 11.0-15.0 [facility] Comment on above: Performed By: #### C BC ####[facility] Blwnapfgrc[address] [place], [place] [address]Dr. Airam Tripathi Hematocrit (Bld) [Volume fraction] 24.7 % Critically low 36.0-48.0 [facility] Comment on above: Performed By: #### C BC ####[facility] Wpbotlamlm[address] [place], [place] [address]Dr. Airam Tripathi Hemoglobin (Bld) [Mass/Vol] 7.6 g/dL Critically low 12.0-16.0 [facility] Comment on above: Performed By: #### C BC ####[facility] Texrakjhda[address] [place], [place] [address]Dr. Airam Tripathi IG # 0.02 10e3/ul Normal 0.00-0.03 [facility] Comment on above: Performed By: #### C BC ####[facility] Xcdbzqnvnr8[address] [place], [place] [address]Dr. Airam Triapthi IG % 0.3 % Normal 0.0-0.5 [facility] Comment on above: Performed By: #### C BC ####[facility] Jdsxedrkjj[address] [place] [address]DrKianna Tripathi LYMPH # 1.1 103/ul Critically low 1.2-3.8 [facility] Comment on above: Performed By: #### C BC ####[facility] Qertvfdjms7647 [place] [address]DrKianna Tripathi Lymphocytes/100 WBC (Bld) 18.4 % Critically low 20.5-60.0 [facility] Comment on above: Performed By: #### C BC ####[facility] Uoabjgkxyk45[address] [place] [address]DrKianna Tripathi MANUAL DIFF REQ NO Normal [facility] Comment on above: Performed By: #### C BC ####[facility] Cdvneaualq4422 [place] [address]DrKianna Selenaneil Tripathi MCH (RBC) [Entitic mass] 28.5 pg Normal 26.7-34.0 [facility] Comment on above: Performed By: #### C BC ####[facility] Wkvjzgnqcz8719 [place] [address]DrKianna Airam Deuce MCHC (RBC) [Mass/Vol] 30.8 g/dL Normal 29.9-35.2 [facility] Comment on above: Performed By: #### C BC ####[facility] Zqwrtwwfif1838 [place] [address]DrKianna Tripathi MCV (RBC) [Entitic vol] 92.5 fL Normal 81.0-99.0 [facility] Comment on above: Performed By: #### C BC ####[facility] Snstdfzcra5676 [place] [address]DrKianna Tripathi MONO # 0.6 103/ul Normal 0.3-0.8 [facility] Comment on above: Performed By: #### C BC ####[facility] Uejnydmqmq9511 [place] [address]DrKianna Tripathi Monocytes/100 WBC (Bld) 10.0 % Normal 1.7-12.0 [facility] Comment on above: Performed By: #### C BC ####[facility] Kjkyignbgo9666 [place] [id number]. Airam Tripathi NEUT # 4.0 103/ul Normal 1.4-6.5 [facility] Comment on above: Performed By: #### C BC ####[facility] Wtfuweesig9974 [place] [address]Dr. Airam Tripathi Neutrophils/100 WBC (Bld) 67.6 % Normal 43.0-75.0 [facility] Comment on above: Performed By: #### C BC ####[facility] Yglamqvtra4770 [place] [phone]. Airam Tripathi Platelet mean volume (Bld) [Entitic vol] 8.8 fL Critically low 9.5-13.5 [facility] Comment on above: Performed By: #### C BC ####[facility] Frpkqjwfly3154 [place] [id number]. Airam Tripathi PLT 226 103/ul Normal 150-450 [facility] Comment on above: Performed By: #### C BC ####[facility] Lakjkcuysx[address] [place], [place] [address]Dr. Airam Tripathi RBC 2.67 106/ul Critically low 4.20-5.40 [facility] Comment on above: Performed By: #### C BC ####[facility] Bpdrsjzdcc8[address] [place], [place] [address]Dr. Airam Tripathi WBC 5.9 103/ul Normal 4.0-11.0 [facility] Comment on above: Performed By: #### C BC ####[facility] Appodosvfu[address] [place], [place] [address]Dr. Airam Tripathi [facility] PCR ([facility]on [facility]-24 SARS-CoV-2 (COVID-19) RNA MIKE+probe Ql (Unsp spec) Not detected Normal NOT DETECTED [facility] Comment on above: Result Comment: When [...] for this test is supported by the [place] of Health and Human Service's declaration that [...] longer be used). Performed By: #### C VDTB ####[facility] Imgdxmnetj20[address] [place], [place] [address]DrKianna Tripathi MAGNESIUMon 10-05-2022 Magnesium [Mass/Vol] 1.7 mg/dL Critically low 1.8-2.4 [facility] Comment on above: Performed By: #### M G, CMP ####[facility] Hvidjkmxvm5[address] [place], [place] [address]DrKianna Tripathi POINT OF CARE GLUCOSEon 09-24 Glucose [Mass/Vol] 92 mg/dL Normal 74-106 [facility] Comment on above: Performed By: #### P OCGLUC ####[facility] Kwaskikazl[address] [place], [place] [address]DrKianna Tripathi PROF 14(COMP METB)on 023 Albumin [Mass/Vol] 2.9 g/dL Critically low 3.4-5.0 Th e [facility] Comment on above: Performed By: #### M G, CMP ####[facility] Nsfezjjcbp054[address] [place], [place] [address]DrKianna Tripathi Albumin/Globulin [Mass ratio] 0.9 {ratio} Normal [facility] Comment on above: Performed By: #### M G, CMP ####[facility] Sbxeccceah9025[address] [place], [place] [address]DrKianna Tripathi ALP [Catalytic activity/Vol] 122 U/L Critically high 46-116 [facility] Comment on above: Performed By: #### M Yumiko, CMP ####[facility] Srpinjpgzi210[address] [place], [place] [address]Dr. Airam Tripathi ALT [Catalytic activity/Vol] 24 U/L Normal 14-59 [facility] Comment on above: Performed By: #### Nadya Calderon, CMP ####[facility] Qhrbmnwqlm545[address] [place], [place] [address]Dr. Airam Tripathi Anion gap [Moles/Vol] 13.1 mmol/L Normal [facility] Comment on above: Performed By: #### Nadya Calderon, CMP ####[facility] Lxqqsoilki774[address] [place], [place] [address]Dr. Airam Tripathi AST [Catalytic activity/Vol] 21 U/L Normal 15-37 [facility] Comment on above: Performed By: #### Nadya Calderon, CMP ####[facility] Ztdgckmrdz6768[address] [place], [place] [address]Dr. Airam Deuce Bilirubin [Mass/Vol] 0.2 mg/dL Normal 0.2-1.0 [facility] Comment on above: Performed By: #### Nadya Calderon, CMP ####[facility] Avfocbqqev29029[address] [place], [place] [address]Dr. Airam Deuce Calcium [Mass/Vol] 8.4 mg/dL Critically low 8.5-10.1 [facility] Comment on above: Performed By: #### Nadya Calderon, CMP ####[facility] Pbucyvkbln9244[address] [place], [place] [address]Dr. Airam Deuce Chloride [Moles/Vol] 102 mmol/L Normal 98-107 [facility] Comment on above: Performed By: #### Nadya Calderon, CMP ####[facility] Fyrdtidzia4067[address] [place], [place] [address]Dr. Airam Tripathi CO2 [Moles/Vol] 23.2 mmol/L Normal 21.0-32.0 [facility] Comment on above: Performed By: #### Nadya Calderon, CMP ####[facility] Fsrvaygoyh0647 [place] [address]Dr. Airam Tripathi Creatinine [Mass/Vol] 1.96 mg/dL Critically high 0.55-1.02 [facility] Comment on above: Performed By: #### M Yumiko, CMP ####[facility] Laxguljjwp877[address] [place], [place] [address]Dr. Airam Tripathi EGFR-AF LUXEMBOURGER 32 mL/min/1.73m2 Critically low >=60 [facility] Comment on above: Performed By: #### M Yumiko, CMP ####[facility] Saebgaopwy4208[address] [place], [place] [address]Dr. Airam Deuce EGFR-NON AF LUXEMBOURGER 26 mL/min/1.73m2 Critically low >=60 [facility] Comment on above: Performed By: #### Nadya Calderon, CMP ####[facility] Hswoherhqd3212[address] [place], [place] [address]Dr. Airam Tripathi Globulin (S) [Mass/Vol] 3.2 g/dL Normal [facility] Comment on above: Performed By: #### Nadya Calderon, CMP ####[facility] Tuygthfmfp8850[address] [place], [place] [address]Dr. Airam Tripathi Glucose [Mass/Vol] 68 mg/dL Critically low 74-106 [facility] Comment on above: Performed By: #### Nadya Calderon, CMP ####[facility] Ckydlxuyzs9[address] [place], [place] [address]Dr. Selenaneil Tripathi Potassium [Moles/Vol] 5.3 mmol/L Critically high 3.5-5.1 [facility] Comment on above: Performed By: #### Nadya Calderon, CMP ####[facility] Groihvujxx[address] [place], [place] [address]Dr. Airam Tripathi Protein [Mass/Vol] 6.1 g/dL Critically low 6.4-8.2 Th [facility] Comment on above: Performed By: #### Nadya Calderon, CMP ####[facility] Taavgwgzik[address] [place], [place] [address]Dr. Airam Tripathi Sodium [Moles/Vol] 133 mmol/L Critically low 136-145 [facility] Comment on above: Performed By: #### M Yumiko, CMP ####[facility] Cugdhcpxmm5998[address] [place], [place] [address]Dr. Airam Tripathi Urea nitrogen [Mass/Vol] 39.0 mg/dL Critically high 7.0-18.0 [facility] Comment on above: Performed By: #### M G, CMP ####[facility] Xwapdhcige974[address] [place], [place] [address]Dr. Airam Tripathi Urea nitrogen/Creatinine [Mass ratio] 19.9 mg/mg Normal [facility] Comment on above: Performed By: #### M G, CMP ####[facility] Yhthewggzp5685[address] [place], [place] [address]Dr. Airam Tripathi SODIUM RANDOM URINEon 2022 Sodium (U) [Moles/Vol] 37 mmol/L Normal 30-90 [facility] Comment on above: Performed By: #### N AU ####[facility] Etgrbizuvz966[address] [place], [place] [address]Dr. Airam Tripathi UA RANDOM W/MICROSCOPICon BACTERIA TRACE Abnormal NONE SEEN [facility] Comment on above: Performed By: #### U AMIC ####[facility] Sjbqwyqlyw[address] [place], [place] [address]Dr. Airam Tripathi Bilirubin Ql (U) Negative Normal NEGATIVE [facility] Comment on above: Performed By: #### U AMIC ####[facility] Krkqsejonh859[address] [place], [place] [address]Dr. Airam Tripathi CAST SEEN Abnormal NONE SEEN [facility] Comment on above: Performed By: #### U AMIC ####[facility] Cfdgrxzvld1507[address] [place], [place] [address]Dr. Airam Tripathi Clarity (U) CLEAR Normal CLEAR [facility] Comment on above: Performed By: #### U AMIC ####[facility] Cqzvgpaxpd0470[address] [place], [place] [address]Dr. Airam Tripathi Color (U) YELLOW Normal YELLOW [facility] Comment on above: Performed By: #### U AMIC ####[facility] Cztlszgeip[address] [place], [place] [address]Dr. Airam Tripathi Crystals LM Nom (Urine sed) NONE SEEN Normal NONE SEEN [facility] Comment on above: Performed By: #### U AMIC ####[facility] Oqonihzzqv8264 [place] [address]Dr. Airam Tripathi Epithelial cells LM Ql (Urine sed) RARE Normal NONE SEEN /RARE [facility] Comment on above: Performed By: #### U AMIC ####[facility] Kqauscmxho0916 [place] [address]Dr. Airam Tripathi Glucose Ql (U) Negative Normal NEGATIVE [facility] Comment on above: Performed By: #### U AMIC ####[facility] Heasphsquu308[address] [place], [place] [address]Dr. Airam Tripathi Hemoglobin Ql (U) Negative Normal NEGATIVE [facility] Comment on above: Performed By: #### U AMIC ####[facility] Eeyqxozygb314[address] [place], [place] [address]Dr. Airam Tripathi HYALINE CAST RARE Normal [facility] Comment on above: Performed By: #### U AMIC ####[facility] Ifaofhayab95[address] [place], [place] [address]Dr. Airam Tripathi Ketones Ql (U) TRACE Abnormal NEGATIVE [facility] Comment on above: Performed By: #### U AMIC ####[facility] Lyqsskhnuo8933[address] [place], [place] [address]Dr. Airam Tripathi LEUKOCYTES Negative Normal NEGATIVE [facility] Comment on above: Performed By: #### U AMIC ####[facility] Ikhmblsdxj0494[address] [place], [place] [address]Dr. Airam Tripathi MUCOUS NONE SEEN Normal NONE SEEN [facility] Comment on above: Performed By: #### U AMIC ####[facility] Utwsbgngrc0776 [place] [address]Dr. Airam Tripathi Nitrite Ql (U) Negative Normal NEGATIVE [facility] Comment on above: Performed By: #### U AMIC ####[facility] Xfdpdbzdrv5146 [place] [address]Dr. Airam Tripathi pH (U) 5.0 [pH] Normal 5-9 [facility] Comment on above: Performed By: #### U AMIC ####[facility] Dcndgewiav9344 [place] [id number]. Airam Tripathi RBC 0-2 Normal 0-2 [facility] Comment on above: Performed By: #### U AMIC ####[facility] Mkxabfudhw4394 [place] [id number]. Airam Tripathi SPEC GRAVITY 1.015 Normal 1.005-<=1. 025 [facility] Comment on above: Performed By: #### U AMIC ####[facility] Ynmyfoulpd5286 [place] [address]Dr. Selenaneil Tripathi UA PROTEIN Negative Normal NEGATIVE/ TRACE [facility] Comment on above: Performed By: #### U AMIC ####[facility] Pkonvnsnnd8191 [place] [address]Dr. Airam Deuce Urobilinogen Qn (U) 0.2 {Ligia'U}/dL Normal 0.2 - 1. 0 [facility] Comment on above: Performed By: #### U AMIC ####[facility] Ndrfyjzqpa9747 [place] [address]Dr. Airam Tripathi WBC NONE SEEN Normal NONE SEEN [facility] Comment on above: Performed By: #### U AMIC ####[facility] Zuhcbfwxsw008[address] [place], [place] [address]Dr. Airam Tripathi CBC AUTO DIFFon 10-04-2022 BASO # 0.0 103/ul Normal 0.0-0.1 [facility] Comment on above: Performed By: #### C BC ####[facility] Cfmgutomdd7[address] [place], [place] [address]Dr. Selenaneil Tripathi Basophils/100 WBC (Bld) 0.3 % Normal 0.2-2.0 [facility] Comment on above: Performed By: #### C BC ####[facility] Onkurnokxe1260[address] [place], [place] [address]Dr. Airam Tripathi EO # 0.2 103/ul Normal 0.0-0.7 [facility] Comment on above: Performed By: #### C BC ####[facility] Sfmxbzdahb9397 [place] [id number]. Airam Tripathi Eosinophils/100 WBC (Bld) 3.2 % Normal 0.9-7.0 [facility] Comment on above: Performed By: #### C BC ####[facility] Qpobhncouw9282 [place] [phone]. Airam Tripathi Erythrocyte distribution width (RBC) [Ratio] 15.1 % Critically high 11.0-15.0 [facility] Comment on above: Performed By: #### C BC ####[facility] Rniekvrcru5258[address] [place], [place] [address]Dr. Airam Tripathi Hematocrit (Bld) [Volume fraction] 27.6 % Critically low 36.0-48.0 [facility] Comment on above: Performed By: #### C BC ####[facility] Isvnfkztat839[address] [place], [place] [address]Dr. Airam Tripathi Hemoglobin (Bld) [Mass/Vol] 8.7 g/dL Critically low 12.0-16.0 [facility] Comment on above: Performed By: #### C BC ####[facility] Fbqzufvdru644[address] [place], [place] [address]Dr. Airam Tripathi IG # 0.03 10e3/ul Normal 0.00-0.03 [facility] Comment on above: Performed By: #### C BC ####[facility] Cpqyxvmmya778[address] [place], [place] [address]Dr. Airam Tripathi IG % 0.4 % Normal 0.0-0.5 [facility] Comment on above: Performed By: #### C BC ####[facility] Thfxcovsuu786[address] [place], [place] [address]Dr. Airam Tripathi LYMPH # 1.2 103/ul Normal 1.2-3.8 [facility] Comment on above: Performed By: #### C BC ####[facility] Pyxselstkg235[address] [place], [place] [address]Dr. Airam Tripathi Lymphocytes/100 WBC (Bld) 16.4 % Critically low 20.5-60.0 [facility] Comment on above: Performed By: #### C BC ####[facility] Sdekfnzkcn03[address] [place] [address]Dr. Airam Tripathi MANUAL DIFF REQ NO Normal [facility] Comment on above: Performed By: #### C BC ####[facility] Uhdmmlpmwj4953 [place] [address]Dr. Airam Tripathi MCH (RBC) [Entitic mass] 28.5 pg Normal 26.7-34.0 [facility] Comment on above: Performed By: #### C BC ####[facility] Ssvzvjjohp5917[address] [place], [place] [address]Dr. Airam Tripathi MCHC (RBC) [Mass/Vol] 31.5 g/dL Normal 29.9-35.2 [facility] Comment on above: Performed By: #### C BC ####[facility] Kjmdxpkcbb686[address] [place], [place] [address]Dr. Airam Tripathi MCV (RBC) [Entitic vol] 90.5 fL Normal 81.0-99.0 [facility] Comment on above: Performed By: #### C BC ####[facility] Xmroflcepa8164[address] [place], [place] [address]Dr. Airam Tripathi MONO # 0.5 103/ul Normal 0.3-0.8 [facility] Comment on above: Performed By: #### C BC ####[facility] Cakdertmjj[address] [place], [place] [address]Dr. Airam Deuce Monocytes/100 WBC (Bld) 7.3 % Normal 1.7-12.0 [facility] Comment on above: Performed By: #### C BC ####[facility] Ooalnsrdfi8164[address] [place], [place] [address]Dr. Airam Tripathi NEUT # 5.4 103/ul Normal 1.4-6.5 [facility] Comment on above: Performed By: #### C BC ####[facility] Cciwsztqjy0307[address] [place], [place] [address]Dr. Airam Tripathi Neutrophils/100 WBC (Bld) 72.4 % Normal 43.0-75.0 [facility] Comment on above: Performed By: #### C BC ####[facility] Ojhdztqhnj8284 [place] [id number]. Selenaneil Deuce Platelet mean volume (Bld) [Entitic vol] 9.1 fL Critically low 9.5-13.5 [facility] Comment on above: Performed By: #### C BC ####[facility] Zlhvcoaiou8144 [place] [phone]. Airam Tripathi PLT 304 103/ul Normal 150-450 [facility] Comment on above: Performed By: #### C BC ####[facility] Awotstzmwo1481 [place] [address]Dr. Airam Tripathi RBC 3.05 106/ul Critically low 4.20-5.40 [facility] Comment on above: Performed By: #### C BC ####[facility] Kceliskpvg8771 [place] [address]Dr. Airam Tripathi WBC 7.4 103/ul Normal 4.0-11.0 [facility] Comment on above: Performed By: #### C BC ####[facility] Votvmsmkju67[address] [place] [address]Dr. Airam Tripathi PROF 14(COMP METB)on 023 Albumin [Mass/Vol] 3.3 g/dL Critically low 3.4-5.0 [facility] Comment on above: Performed By: #### C MP ####[facility] Zpqqrhihhz0859 [place] [address]Dr. Airam Tripathi Albumin/Globulin [Mass ratio] 0.9 {ratio} Normal [facility] Comment on above: Performed By: #### C MP ####[facility] Tgrisikoru67[address] [place] [address]Dr. Airam Tripathi ALP [Catalytic activity/Vol] 127 U/L Critically high 46-116 [facility] Comment on above: Performed By: #### C MP ####[facility] Zshdkcfwmo1774 [place] [address]Dr. Airam Tripathi ALT [Catalytic activity/Vol] 29 U/L Normal 14-59 [facility] Comment on above: Performed By: #### C MP ####[facility] Jaguxkitsg7608 [place] [phone]. Airam Tripathi Anion gap [Moles/Vol] 14.6 mmol/L Normal Th e [facility] Comment on above: Performed By: #### C MP ####[facility] Tvnusvhtiq[address] [place] [phone]. Airam Tripathi AST [Catalytic activity/Vol] 28 U/L Normal 15-37 [facility] Comment on above: Performed By: #### C MP ####[facility] Anhmbltcps3575 [place] [phone]. Airam Tripathi Bilirubin [Mass/Vol] 0.3 mg/dL Normal 0.2-1.0 [facility] Comment on above: Performed By: #### C MP ####[facility] Zeggeqeazn9047 [place] [phone]. Airam Tripathi Calcium [Mass/Vol] 8.9 mg/dL Normal 8.5-10.1 [facility] Comment on above: Performed By: #### C MP ####[facility] Yycyptbknt8858 [place] [phone]. Airam Tripathi Chloride [Moles/Vol] 99 mmol/L Normal 98-107 [facility] Comment on above: Performed By: #### C MP ####[facility] Thjisldqmg0995 [place] [phone]. Airam Tripathi CO2 [Moles/Vol] 25.1 mmol/L Normal 21.0-32.0 [facility] Comment on above: Performed By: #### C MP ####[facility] Vhquxtxrmp5708 [place] [phone]. Airam Tripathi Creatinine [Mass/Vol] 1.42 mg/dL Critically high 0.55-1.02 [facility] Comment on above: Performed By: #### C MP ####[facility] Mzbmccalgu8803 [place] [phone]. Airam Tripathi EGFR-AF LUXEMBOURGER 46 mL/min/1.73m2 Critically low >=60 [facility] Comment on above: Performed By: #### C MP ####[facility] Dzzpeaifff7595 [place], [place] [address]Lu. Airam Tripathi EGFR-NON AF LUXEMBOURGER 38 mL/min/1.73m2 Critically low >=60 [facility] Comment on above: Performed By: #### C MP ####[facility] Arlbwefskn9453 [place], [place] [address]Us. Airam Tripathi Globulin (S) [Mass/Vol] 3.6 g/dL Normal [facility] Comment on above: Performed By: #### C MP ####[facility] Nayuthguaq1083 [place], [place] [address]Ii. Airam Tripathi Glucose [Mass/Vol] 79 mg/dL Normal 74-106 [facility] Comment on above: Performed By: #### C MP ####[facility] Gpssyvscmm2345 [place], [place] [address]Vt. Airam Tripathi Potassium [Moles/Vol] 5.7 mmol/L Critically high 3.5-5.1 [facility] Comment on above: Performed By: #### C MP ####[facility] Fxxormpkgv2794 [place] [phone]. Airam Tripathi Protein [Mass/Vol] 6.9 g/dL Normal 6.4-8.2 [facility] Comment on above: Performed By: #### C MP ####[facility] Pracufeliu6793 [place] [phone]. Airam Tripathi Sodium [Moles/Vol] 133 mmol/L Critically low 136-145 [facility] Comment on above: Performed By: #### C MP ####[facility] Tuxrojhyef9042 [place], [place] [address]Uu. Airam Tripathi Urea nitrogen [Mass/Vol] 35.0 mg/dL Critically high 7.0-18.0 [facility] Comment on above: Performed By: #### C MP ####[facility] V[address]isyimlq4437 [place], [place] [address]Pm. Airam Tripathi Urea nitrogen/Creatinine [Mass ratio] 24.6 mg/mg Normal [facility] Comment on above: Performed By: #### C MP ####[facility] Ahegfrsgfb75[address] [place] [address]Dr. Airam Tripathi OSMOLALITYon 10-02-2022 Osmolality [Osmolality] 277 mosm/kg Normal 275-295 [facility] Comment on above: Performed By: #### O SMO ####[facility] Kmqygftiob[address] [place], [place] [address]Dr. Airam Tripathi CBC AUTO DIFFon 09-29-2022 BASO # 0.0 103/ul Normal 0.0-0.1 [facility] Comment on above: Performed By: #### C BC ####[facility] Wytfdclxvc8864[address] [place], [place] [address]Dr. Airam Tripathi Basophils/100 WBC (Bld) 0.5 % Normal 0.2-2.0 [facility] Comment on above: Performed By: #### C BC ####[facility] Mjgmmfctxi4[address] [place], [place] [address]Dr. Airam Tripathi EO # 0.2 103/ul Normal 0.0-0.7 [facility] Comment on above: Performed By: #### C BC ####[facility] Girymtkywl9613[address] [place], [place] [address]Dr. Airam Tripathi Eosinophils/100 WBC (Bld) 3.2 % Normal 0.9-7.0 [facility] Comment on above: Performed By: #### C BC ####[facility] Bikpovzqxe73[address] [place], [place] [address]Dr. Airam Tripathi Erythrocyte distribution width (RBC) [Ratio] 15.1 % Critically high 11.0-15.0 [facility] Comment on above: Performed By: #### C BC ####[facility] Gnmigfhqfl7725[address] [place], [place] [address]Dr. Airam Tripathi Hematocrit (Bld) [Volume fraction] 26.2 % Critically low 36.0-48.0 [facility] Comment on above: Performed By: #### C BC ####[facility] Othdfxawtk6525[address] [place], [place] [address]Dr. Airam Tripathi Hemoglobin (Bld) [Mass/Vol] 8.1 g/dL Critically low 12.0-16.0 [facility] Comment on above: Performed By: #### C BC ####[facility] Ridv[address]qu[address] [place] [address]Dr. Airam Tripathi IG # 0.02 10e3/ul Normal 0.00-0.03 [facility] Comment on above: Performed By: #### C BC ####[facility] Otwgctspyl[address] [place] [address]Dr. Airam Tripathi IG % 0.4 % Normal 0.0-0.5 [facility] Comment on above: Performed By: #### C BC ####[facility] Ibvowipufy[address] [place] [address]Dr. Airam Tripathi LYMPH # 1.3 103/ul Normal 1.2-3.8 [facility] Comment on above: Performed By: #### C BC ####[facility] Zizxzpnaub[address] [place] [address]Dr. Airam Tripathi Lymphocytes/100 WBC (Bld) 22.6 % Normal 20.5-60.0 [facility] Comment on above: Performed By: #### C BC ####[facility] Crauoqjzcc[address] [place] [address]DrKianna Tripathi MANUAL DIFF REQ NO Normal [facility] Comment on above: Performed By: #### C BC ####[facility] Vspyrqoqgq7[address] [place] [address]Dr. Airam Tripathi MCH (RBC) [Entitic mass] 28.0 pg Normal 26.7-34.0 [facility] Comment on above: Performed By: #### C BC ####[facility] Bgoutfaoif738[address] [place], [place] [address]Dr. Airam Tripathi MCHC (RBC) [Mass/Vol] 30.9 g/dL Normal 29.9-35.2 [facility] Comment on above: Performed By: #### C BC ####[facility] Lhlvkskgah1499[address] [place], [place] [address]Dr. Airam Tripathi MCV (RBC) [Entitic vol] 90.7 fL Normal 81.0-99.0 [facility] Comment on above: Performed By: #### C BC ####[facility] Jvdktollds16[address] [place] [id number]. Airam Tripathi MONO # 0.5 103/ul Normal 0.3-0.8 [facility] Comment on above: Performed By: #### C BC ####[facility] Kgqwomegeq99[address] [place] [id number]. Airam Tripathi Monocytes/100 WBC (Bld) 9.6 % Normal 1.7-12.0 [facility] Comment on above: Performed By: #### C BC ####[facility] Chxhfkjnhi32[address] [place] [id number]. Airam Tripathi NEUT # 3.6 103/ul Normal 1.4-6.5 [facility] Comment on above: Performed By: #### C BC ####[facility] Yaytszvvfx10[address] [place] [address]Dr. Airam Tripathi Neutrophils/100 WBC (Bld) 63.7 % Normal 43.0-75.0 [facility] Comment on above: Performed By: #### C BC ####[facility] Kcpiorzmxg59[address] [place] [address]Dr. Airam Tripathi Platelet mean volume (Bld) [Entitic vol] 9.4 fL Critically low 9.5-13.5 [facility] Comment on above: Performed By: #### C BC ####[facility] Pofiioywez6[address] [place] [address]Dr. Airam Tripathi PLT 258 103/ul Normal 150-450 [facility] Comment on above: Performed By: #### C BC ####[facility] Bllgzfbrux72[address] [place], [place] [address]Dr. Airam Tripathi RBC 2.89 106/ul Critically low 4.20-5.40 [facility] Comment on above: Performed By: #### C BC ####[facility] Gfooclzlea5398 [place] [id number]. Airam Tripathi WBC 5.6 103/ul Normal 4.0-11.0 [facility] Comment on above: Performed By: #### C BC ####[facility] Banrozklfy34[address] [place] [address]Dr. Airam Tripathi PROF 14(COMP METB)on 023 Albumin [Mass/Vol] 3.0 g/dL Critically low 3.4-5.0 [facility] Comment on above: Performed By: #### C MP ####[facility] Umxdhpmcaz[address] [place] [address]Dr. Airam Tripathi Albumin/Globulin [Mass ratio] 1.1 {ratio} Normal [facility] Comment on above: Performed By: #### C MP ####[facility] Mhakzlllkz698[address] [place], [place] [address]Dr. Airam Tripathi ALP [Catalytic activity/Vol] 102 U/L Normal 46-116 [facility] Comment on above: Performed By: #### C MP ####[facility] Qljfawivpe7277[address] [place], [place] [address]Dr. Airam Tripathi ALT [Catalytic activity/Vol] 20 U/L Normal 14-59 [facility] Comment on above: Performed By: #### C MP ####[facility] Ltsrfhdjce5770[address] [place], [place] [address]Dr. Airam Tripathi Anion gap [Moles/Vol] 11.1 mmol/L Normal [facility] Comment on above: Performed By: #### C MP ####[facility] Ruxzddugkp947[address] [place], [place] [address]Dr. Airam Tripathi AST [Catalytic activity/Vol] 18 U/L Normal 15-37 [facility] Comment on above: Performed By: #### C MP ####[facility] Irbjocsgiz8245[address] [place], [place] [address]Dr. Airam Tripathi Bilirubin [Mass/Vol] 0.2 mg/dL Normal 0.2-1.0 [facility] Comment on above: Performed By: #### C MP ####[facility] Nkopsyvwpb9905[address] [place], [place] [address]Dr. Airam Tripathi Calcium [Mass/Vol] 8.0 mg/dL Critically low 8.5-10.1 [facility] Comment on above: Performed By: #### C MP ####[facility] Qioywjlhns9682 [place] [phone]. Airam Tripathi Chloride [Moles/Vol] 100 mmol/L Normal 98-107 [facility] Comment on above: Performed By: #### C MP ####[facility] Wwdljmtwnb6[address] [place] [phone]. Airam Tripathi CO2 [Moles/Vol] 24.8 mmol/L Normal 21.0-32.0 [facility] Comment on above: Performed By: #### C MP ####[facility] Xvpyeqpcgz0648 [place] [address]Dr. Airam Tripathi Creatinine [Mass/Vol] 1.11 mg/dL Critically high 0.55-1.02 [facility] Comment on above: Performed By: #### C MP ####[facility] Udsdrdbtes601[address] [place], [place] [address]Dr. Airam Tripathi EGFR-AF LUXEMBOURGER >60 Normal >=60 [facility] Comment on above: Performed By: #### C MP ####[facility] Iyeazgramy3674[address] [place], [place] [address]Dr. Airam Tripathi EGFR-NON AF LUXEMBOURGER 50 mL/min/1.73m2 Critically low >=60 [facility] Comment on above: Performed By: #### C MP ####[facility] Kvzntzyjqc479[address] [place], [place] [address]Dr. Airam Tripathi Globulin (S) [Mass/Vol] 2.8 g/dL Normal [facility] Comment on above: Performed By: #### C MP ####[facility] Aeqoslkpdf897[address] [place], [place] [address]Dr. Airam Tripathi Glucose [Mass/Vol] 77 mg/dL Normal 74-106 [facility] Comment on above: Performed By: #### C MP ####[facility] Hekoybkkpy8234[address] [place], [place] [address]Dr. Airam Tripathi Potassium [Moles/Vol] 4.9 mmol/L Normal 3.5-5.1 [facility] Comment on above: Performed By: #### C MP ####[facility] Yajbrmrzks8[address] [place] [address]Dr. Airam Tripathi Protein [Mass/Vol] 5.8 g/dL Critically low 6.4-8.2 [facility] Comment on above: Performed By: #### C MP ####[facility] Kwtqylmstl1308[address] [place], [place] [address]Dr. Airam Tripathi Sodium [Moles/Vol] 131 mmol/L Critically low 136-145 [facility] Comment on above: Performed By: #### C MP ####[facility] Uecktjoeyh955[address] [place], [place] [address]Dr. Airam Tripathi Urea nitrogen [Mass/Vol] 33.0 mg/dL Critically high 7.0-18.0 [facility] Comment on above: Performed By: #### C MP ####[facility] Fxtzjqmdjn6975[address] [place], [place] [address]Dr. Airam Tripathi Urea nitrogen/Creatinine [Mass ratio] 29.7 mg/mg Normal [facility] Comment on above: Performed By: #### C MP ####[facility] Vlrxjqlgjq975[address] [place], [place] [address]Dr. Airam Tripathi ECHOCARDIO M/2D COMPLETEon 0 09-21-2022 ECHOCARDIO M/2D COMPLETE Normal [facility] OSMOLALITYon 09-21-2022 Osmolality [Osmolality] 282 mosm/kg Normal 275-295 [facility] Comment on above: Performed By: #### O SMO ####[facility] Hpiomifbnz512[address] [place], [place] [address]Dr. Airam Tripathi PHOSPHOLIPIDSon 09-21-2022 Phospholipids, Serum 249 mg/dL Normal 151-288 [facility] Comment on above: Performed By: #### P HOSLIP ####[facility] Eniyiktpke9215[address] [place], [place] [address]Dr. Airam Tripathi CBC AUTO DIFFon 09-20-2022 BASO # 0.0 103/ul Normal 0.0-0.1 [facility] Comment on above: Performed By: #### C BC ####[facility] Phnfredrpf3004[address] [place], [place] [address]Dr. Airam Tripathi Basophils/100 WBC (Bld) 0.5 % Normal 0.2-2.0 [facility] Comment on above: Performed By: #### C BC ####[facility] Xpleyejrqo364[address] [place], [place] [address]Dr. Selenaneil Tripathi EO # 0.2 103/ul Normal 0.0-0.7 [facility] Comment on above: Performed By: #### C BC ####[facility] Ugzxyiudjp8526[address] [place], [place] [address]Dr. Airam Tripathi Eosinophils/100 WBC (Bld) 2.9 % Normal 0.9-7.0 [facility] Comment on above: Performed By: #### C BC ####[facility] Vjdqntgbss9423[address] [place], [place] [address]Dr. Airam Tripathi Erythrocyte distribution width (RBC) [Ratio] 15.4 % Critically high 11.0-15.0 [facility] Comment on above: Performed By: #### C BC ####[facility] Jocyqzdcho6244[address] [place], [place] [address]Dr. Airam Tripathi Hematocrit (Bld) [Volume fraction] 26.3 % Critically low 36.0-48.0 [facility] Comment on above: Performed By: #### C BC ####[facility] Exlpxzlmpu1505[address] [place], [place] [address]Dr. Airam Tripathi Hemoglobin (Bld) [Mass/Vol] 8.2 g/dL Critically low 12.0-16.0 [facility] Comment on above: Performed By: #### C BC ####[facility] Ysvdyhzscc6220[address] [place], [place] [address]Dr. Airam Tripathi IG # 0.03 10e3/ul Normal 0.00-0.03 [facility] Comment on above: Performed By: #### C BC ####[facility] Jmjgxsxcni0744[address] [place], [place] [address]Dr. Airam Tripathi IG % 0.4 % Normal 0.0-0.5 [facility] Comment on above: Performed By: #### C BC ####[facility] Ycrdcncynz7928[address] [place], [place] [address]DrKianna Tripathi LYMPH # 1.9 103/ul Normal 1.2-3.8 [facility] Comment on above: Performed By: #### C BC ####[facility] Yrzmkpgdsd78[address] [place] [address]DrKianna Tripathi Lymphocytes/100 WBC (Bld) 23.0 % Normal 20.5-60.0 [facility] Comment on above: Performed By: #### C BC ####[facility] Vukimiznit[address] [place] [address]DrKianna Tripathi MANUAL DIFF REQ NO Normal [facility] Comment on above: Performed By: #### C BC ####[facility] Eilnecbkcy0685 [place] [address]DrKianna Tripathi MCH (RBC) [Entitic mass] 28.5 pg Normal 26.7-34.0 [facility] Comment on above: Performed By: #### C BC ####[facility] Mxrpdcuszx8385[address] [place], [place] [address]DrKianna Tripathi MCHC (RBC) [Mass/Vol] 31.2 g/dL Normal 29.9-35.2 [facility] Comment on above: Performed By: #### C BC ####[facility] Wdkyubnvbp354[address] [place], [place] [address]DrKianna Tripathi MCV (RBC) [Entitic vol] 91.3 fL Normal 81.0-99.0 [facility] Comment on above: Performed By: #### C BC ####[facility] Kivwvmfjkp8008[address] [place], [place] [address]DrKianna Tripathi MONO # 0.7 103/ul Normal 0.3-0.8 [facility] Comment on above: Performed By: #### C BC ####[facility] Gexskpmvoq597[address] [place], [place] [address]DrKianna Tripathi Monocytes/100 WBC (Bld) 7.7 % Normal 1.7-12.0 [facility] Comment on above: Performed By: #### C BC ####[facility] Ypaxxzoprb9164[address] [place], [place] [address]Dr. Airam Tripathi NEUT # 5.5 103/ul Normal 1.4-6.5 [facility] Comment on above: Performed By: #### C BC ####[facility] Ayxipiwxhf56[address] [place] [address]Dr. Airam Tripathi Neutrophils/100 WBC (Bld) 65.5 % Normal 43.0-75.0 [facility] Comment on above: Performed By: #### C BC ####[facility] Wmpzlruspt0220[address] [place], [place] [address]Dr. Airam Tripathi Platelet mean volume (Bld) [Entitic vol] 9.1 fL Critically low 9.5-13.5 [facility] Comment on above: Performed By: #### C BC ####[facility] Ktzlsimwcd996[address] [place], [place] [address]Dr. Airam Tripathi PLT 258 103/ul Normal 150-450 [facility] Comment on above: Performed By: #### C BC ####[facility] Tkplcouijz4787[address] [place], [place] [address]Dr. Airam Tripathi RBC 2.88 106/ul Critically low 4.20-5.40 [facility] Comment on above: Performed By: #### C BC ####[facility] Gmcgenobtl196[address] [place], [place] [address]Dr. Airam Tripathi WBC 8.4 103/ul Normal 4.0-11.0 [facility] Comment on above: Performed By: #### C BC ####[facility] Fqzivnrkiw4735[address] [place], [place] [address]Dr. Airam Tripathi PROF CHEM 8 (BAS METB)on Anion gap [Moles/Vol] 10.3 mmol/L Normal [facility] Comment on above: Performed By: #### B MP ####[facility] Okcsijgtam212[address] [place], [place] [address]Dr. Airam Tripathi Calcium [Mass/Vol] 7.9 mg/dL Critically low 8.5-10.1 [facility] Comment on above: Performed By: #### B MP ####[facility] Ptqsyhmyly859[address] [place], [place] [address]Dr. Airam Tripathi Chloride [Moles/Vol] 98 mmol/L Normal 98-107 [facility] Comment on above: Performed By: #### B MP ####[facility] Gzbydvsonu014[address] [place], [place] [address]Dr. Airam Tripathi CO2 [Moles/Vol] 27.5 mmol/L Normal 21.0-32.0 [facility] Comment on above: Performed By: #### B MP ####[facility] Dbbuhsnkow7723[address] [place], [place] [address]Dr. Airam Tripathi Creatinine [Mass/Vol] 1.44 mg/dL Critically high 0.55-1.02 [facility] Comment on above: Performed By: #### B MP ####[facility] Yaerfyegkk279[address] [place], [place] [address]Dr. Airam Tripathi EGFR-AF LUXEMBOURGER 45 mL/min/1.73m2 Critically low >=60 [facility] Comment on above: Performed By: #### B MP ####[facility] Vuofbyjbdi068[address] [place], [place] [address]Dr. Airam Tripathi EGFR-NON AF LUXEMBOURGER 37 mL/min/1.73m2 Critically low >=60 [facility] Comment on above: Performed By: #### B MP ####[facility] Zbledvrxab428[address] [place], [place] [address]Dr. Airam Tripathi Glucose [Mass/Vol] 91 mg/dL Normal 74-106 [facility] Comment on above: Performed By: #### B MP ####[facility] Yhlmjgwsrz8033[address] [place], [place] [address]Dr. Airam Tripathi Potassium [Moles/Vol] 4.8 mmol/L Normal 3.5-5.1 [facility] Comment on above: Performed By: #### B MP ####[facility] Eqyjeaxdyt5536[address] [place], [place] [address]Dr. Airam Tripathi Sodium [Moles/Vol] 131 mmol/L Critically low 136-145 [facility] Comment on above: Performed By: #### B MP ####[facility] Oaolfqmujb8899[address] [place], [place] [address]Dr. Airam Tripathi Urea nitrogen [Mass/Vol] 40.0 mg/dL Critically high 7.0-18.0 [facility] Comment on above: Performed By: #### B MP ####[facility] Ghsyjrdugv297[address] [place], [place] [address]Dr. Airam Tripathi Urea nitrogen/Creatinine [Mass ratio] 27.8 mg/mg Normal [facility] Comment on above: Performed By: #### B MP ####[facility] Jyjcwzzsuj022[address] [place], [place] [address]Dr. Airam Tripathi Anion gap [Moles/Vol] 10.6 mmol/L Normal [facility] Comment on above: Performed By: #### B MP ####[facility] Biocjncnlz4340[address] [place], [place] [address]Dr. Airam Tripathi Calcium [Mass/Vol] 7.9 mg/dL Critically low 8.5-10.1 [facility] Comment on above: Performed By: #### B MP ####[facility] Ficzufsanz7114[address] [place], [place] [address]Dr. Airam Tripathi Chloride [Moles/Vol] 101 mmol/L Normal 98-107 [facility] Comment on above: Performed By: #### B MP ####[facility] Tylijfnxee5778[address] [place], [place] [address]Dr. Airam Tripathi CO2 [Moles/Vol] 27.4 mmol/L Normal 21.0-32.0 [facility] Comment on above: Performed By: #### B MP ####[facility] Lcndzrxkpj230[address] [place], [place] [address]Dr. Airam Tripathi Creatinine [Mass/Vol] 1.35 mg/dL Critically high 0.55-1.02 [facility] Comment on above: Performed By: #### B MP ####[facility] Xhmsduwvxt0808[address] [place], [place] [address]Dr. Airam Tripathi EGFR-AF LUXEMBOURGER 48 mL/min/1.73m2 Critically low >=60 [facility] Comment on above: Performed By: #### B MP ####[facility] Mmdrkpqgcl405[address] [place], [place] [address]Dr. Airam Tripathi EGFR-NON AF LUXEMBOURGER 40 mL/min/1.73m2 Critically low >=60 [facility] Comment on above: Performed By: #### B MP ####[facility] Aywzowiplf7615[address] [place], [place] [address]Dr. Airam Tripathi Glucose [Mass/Vol] 114 mg/dL Critically high 74-106 [facility] Comment on above: Performed By: #### B MP ####[facility] Chbuulcoug7010[address] [place], [place] [address]Dr. Airma Tripathi Potassium [Moles/Vol] 5.0 mmol/L Normal 3.5-5.1 [facility] Comment on above: Performed By: #### B MP ####[facility] Xxlbvelmqc1845[address] [place], [place] [address]Dr. Airam Tripathi Sodium [Moles/Vol] 134 mmol/L Critically low 136-145 [facility] Comment on above: Performed By: #### B MP ####[facility] Fiazekxggv2516[address] [place], [place] [address]Dr. Airam Tripathi Urea nitrogen [Mass/Vol] 40.0 mg/dL Critically high 7.0-18.0 [facility] Comment on above: Performed By: #### B MP ####[facility] Vrvknzyoqu508[address] [place], [place] [address]Dr. Airam Tripathi Urea nitrogen/Creatinine [Mass ratio] 29.6 mg/mg Normal [facility] Comment on above: Performed By: #### B MP ####[facility] Uzdjvbbnsk9416[address] [place], [place] [address]Dr. Airam Tripathi PTH INTACTon 09-20-2022 PTH, Intact 104 pg/mL Critically high 15-65 [facility] Comment on above: Performed By: #### P THINT ####[facility] Vbiqbmjhtm4530[address] [place], [place] [address]Dr. Airam Tripathi BNPon 09-19-2022 Natriuretic peptide B (Bld) [Mass/Vol] 1272.0 pg/mL Critically high <=900.0 [facility] Comment on above: Performed By: #### H STROPN, TSH, K, BNP ####[facility] Qfpumhoivq[address] [place] [id number]. Airam Triptahi CBC AUTO DIFFon 09-19-2022 BASO # 0.0 103/ul Normal 0.0-0.1 [facility] Comment on above: Performed By: #### C BC ####[facility] Qnewqucacy[address] [place] [id number]. Selenaneil Tripathi Basophils/100 WBC (Bld) 0.5 % Normal 0.2-2.0 [facility] Comment on above: Performed By: #### C BC ####[facility] [address]zbtxx[address] [place] [address]Dr. Selenaneil Tripathi EO # 0.2 103/ul Normal 0.0-0.7 [facility] Comment on above: Performed By: #### C BC ####[facility] Mmalrpgpyy5[address] [place] [address]Dr. Selenaneil Tripathi Eosinophils/100 WBC (Bld) 2.6 % Normal 0.9-7.0 [facility] Comment on above: Performed By: #### C BC ####[facility] Mqambwzftd214[address] [place], [place] [address]Dr. Airam Deuce Erythrocyte distribution width (RBC) [Ratio] 15.5 % Critically high 11.0-15.0 [facility] Comment on above: Performed By: #### C BC ####[facility] Zddscovfxd384[address] [place], [place] [address]Dr. Selenaneil Tripathi Hematocrit (Bld) [Volume fraction] 31.1 % Critically low 36.0-48.0 [facility] Comment on above: Performed By: #### C BC ####[facility] Wmhrmakpum[address] [place] [address]Dr. Selenaneil Tripathi Hemoglobin (Bld) [Mass/Vol] 9.6 g/dL Critically low 12.0-16.0 [facility] Comment on above: Performed By: #### C BC ####[facility] Lpsdsbzlcw9394[address] [place], [place] [address]Dr. Airam Tripathi IG # 0.04 10e3/ul Critically high 0.00-0.03 [facility] Comment on above: Performed By: #### C BC ####[facility] Puoqpwllyv[address] [place] [address]DrKianna Tripathi IG % 0.5 % Normal 0.0-0.5 [facility] Comment on above: Performed By: #### C BC ####[facility] Vwszcylxej[address] [place] [address]DrKianna Tripathi LYMPH # 1.0 103/ul Critically low 1.2-3.8 [facility] Comment on above: Performed By: #### C BC ####[facility] Beiksyumtz[address] [place] [address]DrKianna Tripathi Lymphocytes/100 WBC (Bld) 12.0 % Critically low 20.5-60.0 [facility] Comment on above: Performed By: #### C BC ####[facility] Qhhriigctk[address] [place], [place] [address]DrKianna Tripathi MANUAL DIFF REQ NO Normal [facility] Comment on above: Performed By: #### C BC ####[facility] Tvpjrvfbue[address] [place], [place] [address]DrKianna Airam Deuce MCH (RBC) [Entitic mass] 28.2 pg Normal 26.7-34.0 [facility] Comment on above: Performed By: #### C BC ####[facility] Fztgtnezkq[address] [place], [place] [address]DrKianna Selenaneil Tripathi MCHC (RBC) [Mass/Vol] 30.9 g/dL Normal 29.9-35.2 [facility] Comment on above: Performed By: #### C BC ####[facility] Vqddyumfcj[address] [place], [place] [address]DrKianna Selenaneil Tripathi MCV (RBC) [Entitic vol] 91.5 fL Normal 81.0-99.0 [facility] Comment on above: Performed By: #### C BC ####[facility] Gedsaceczn[address] [place], [place] [address]DrKianna Tripathi MONO # 0.5 103/ul Normal 0.3-0.8 [facility] Comment on above: Performed By: #### C BC ####[facility] Rkvlkvmdwr[address] [place] [address]Dr. Airam Tripathi Monocytes/100 WBC (Bld) 6.4 % Normal 1.7-12.0 [facility] Comment on above: Performed By: #### C BC ####[facility] Ghgizzkpub39[address] [place] [id number]. Airam Tripathi NEUT # 6.4 103/ul Normal 1.4-6.5 [facility] Comment on above: Performed By: #### C BC ####[facility] Zujlzuegga[address] [place] [address]Dr. Airam Tripathi Neutrophils/100 WBC (Bld) 78.0 % Critically high 43.0-75.0 [facility] Comment on above: Performed By: #### C BC ####[facility] Anfrqjzwwb60[address] [place] [address]Dr. Airam Tripathi Platelet mean volume (Bld) [Entitic vol] 9.1 fL Critically low 9.5-13.5 [facility] Comment on above: Performed By: #### C BC ####[facility] Ymzswicyym18[address] [place], [place] [address]Dr. Airam Tripathi PLT 318 103/ul Normal 150-450 [facility] Comment on above: Performed By: #### C BC ####[facility] Pticisgsjx44[address] [place] [address]Dr. Airam Tripathi RBC 3.40 106/ul Critically low 4.20-5.40 [facility] Comment on above: Performed By: #### C BC ####[facility] Xvwwjebtyi8022 [place] [id number]. Airam Tripathi WBC 8.2 103/ul Normal 4.0-11.0 [facility] Comment on above: Performed By: #### C BC ####[facility] Bgahgsmbff5[address] [place], [place] [address]Dr. Airam Tripathi [facility] PCR [facility]on [facility]25 SARS-CoV-2 (COVID-19) RNA MIKE+probe Ql (Unsp spec) Not detected Normal NOT DETECTED [facility] Comment on above: Result Comment: When [...] for this test is supported by the [place] of Health and Human Service's declaration that [...] be used). Performed By: #### C VDTBH ####[facility] Yxldcaighc[address] [place], [place] [address]Dr. Airam Tripathi LACTATE/LACTIC ACIDon 2022 Lactate [Moles/Vol] 0.4 mmol/L Normal 0.4-2.0 [facility] Comment on above: Performed By: #### L ACT ####[facility] Uocmxzxqcd3045[address] [place], [place] [address]Dr. Airam Tripathi POTASSIUMon 09-19-2022 Potassium [Moles/Vol] 6.3 mmol/L Critically high 3.5-5.1 [facility] Comment on above: Performed By: #### H STROPN, TSH, K, BNP ####[facility] Wjwxbjpmxo[address] [place] [address]Dr. Airam Tripathi PROF 14(COMP METB)on 023 Albumin [Mass/Vol] 3.5 g/dL Normal 3.4-5.0 [facility] Comment on above: Performed By: #### C MP ####[facility] Tskpbaeonw9425[address] [place], [place] [address]Dr. Airam Tripathi Albumin/Globulin [Mass ratio] 1.1 {ratio} Normal [facility] Comment on above: Performed By: #### C MP ####[facility] Bplhibrujg[address] [place] [address]Dr. Airam Deuce ALP [Catalytic activity/Vol] 113 U/L Normal 46-116 [facility] Comment on above: Performed By: #### C MP ####[facility] Erbrwbfxvw025[address] [place] [address]Dr. Airam Deuce ALT [Catalytic activity/Vol] 26 U/L Normal 14-59 [facility] Comment on above: Performed By: #### C MP ####[facility] Fcamwfbtrd028[address] [place], [place] [address]Dr. Selenaneil Deuce Anion gap [Moles/Vol] 11.5 mmol/L Normal [facility] Comment on above: Performed By: #### C MP ####[facility] Zmzwrvmcnw4850[address] [place], [place] [address]Dr. Selenaneil Tripathi AST [Catalytic activity/Vol] 24 U/L Normal 15-37 [facility] Comment on above: Performed By: #### C MP ####[facility] Wkcrveowwh[address] [place], [place] [address]Dr. Airam Deuce Bilirubin [Mass/Vol] 0.3 mg/dL Normal 0.2-1.0 [facility] Comment on above: Performed By: #### C MP ####[facility] Spoblhjyhp5533[address] [place], [place] [address]Dr. Airam Tripathi Calcium [Mass/Vol] 8.9 mg/dL Normal 8.5-10.1 [facility] Comment on above: Performed By: #### C MP ####[facility] Tfgchctjji[address] [place], [place] [address]Dr. Airam Tripathi Chloride [Moles/Vol] 103 mmol/L Normal 98-107 [facility] Comment on above: Performed By: #### C MP ####[facility] Mfmfrwdcbs[address] [place], [place] [address]Dr. Airam Tripathi CO2 [Moles/Vol] 27.8 mmol/L Normal 21.0-32.0 [facility] Comment on above: Performed By: #### C MP ####[facility] Eizqkqmmaa7[address] [place] [phone]. Airam Tripathi Creatinine [Mass/Vol] 1.28 mg/dL Critically high 0.55-1.02 [facility] Comment on above: Performed By: #### C MP ####[facility] Rppcvjheuu23[address] [place] [phone]. Airam Tripathi EGFR-AF LUXEMBOURGER 52 mL/min/1.73m2 Critically low >=60 [facility] Comment on above: Performed By: #### C MP ####[facility] Fwlosteecn8116 [place] [id number]. Airam Tripathi EGFR-NON AF LUXEMBOURGER 43 mL/min/1.73m2 Critically low >=60 [facility] Comment on above: Performed By: #### C MP ####[facility] Qsvxfwxkcx8781 [place] [address]Dr. Airam Tripathi Globulin (S) [Mass/Vol] 3.2 g/dL Normal [facility] Comment on above: Performed By: #### C MP ####[facility] Dvpityqfxt3267 [place] [phone]. Airam Tripathi Glucose [Mass/Vol] 95 mg/dL Normal 74-106 [facility] Comment on above: Performed By: #### C MP ####[facility] Sdiltdviga8205 [place] [phone]. Airam Tripathi Potassium [Moles/Vol] 6.3 mmol/L Critically high 3.5-5.1 [facility] Comment on above: Performed By: #### C MP ####[facility] Fzwjjyoktl7505 [place] [id number]. Airam Tripathi Protein [Mass/Vol] 6.7 g/dL Normal 6.4-8.2 [facility] Comment on above: Performed By: #### C MP ####[facility] Trkkmzejxr6664 [place] [phone]. Airam Tripathi Sodium [Moles/Vol] 135 mmol/L Critically low 136-145 [facility] Comment on above: Performed By: #### C MP ####[facility] Rgunbooeao034[address] [place] [address]Dr. Airam Tripathi Urea nitrogen [Mass/Vol] 42.0 mg/dL Critically high 7.0-18.0 [facility] Comment on above: Performed By: #### C MP ####[facility] Nokvcftptt[address] [place] [address]Dr. Airam Tripathi Urea nitrogen/Creatinine [Mass ratio] 32.8 mg/mg Normal [facility] Comment on above: Performed By: #### C MP ####[facility] Bitoephfdl475[address] [place] [address]Dr. Airam Deuce TROPONIN, HIGH SENSITIVITYon 09-19-2022 HSTROP 7.1 pg/mL Normal 4.0-51.3 [facility] Comment on above: Result Comment: CUT- OFF POINTS HAVE BEEN ESTABLISHED BASED ON THE FOURTH UNIVERSAL DEFINITIONS OF MYOCARDIALINFARCTION. THE UPPER REFERENCE LIMIT (URL) OF TROPONIN, DEFINED THE 99TH PERCENTILE OFcTnI DISTRIBUTION IN A REFERENCE POPULATION, HAS BEEN CONFIRMED THE DECISION THRESHOLDFOR [place] DIAGNOSIS. Performed By: #### H STROPN, TSH, K, BNP ####[facility] Httfacfxhe[address] [place] [address]Dr. Airam Tripathi TSHon 09-19-2022 TSH 0.028 uIU/mL Critically low 0.358-3.74 0 [facility] Comment on above: Performed By: #### H STROPN, TSH, K, BNP ####[facility] Bwowbrkghn14[address] [place] [address]Dr. Airam Deuce UA RANDOMon 09-19-2022 Bilirubin Ql (U) Negative Normal NEGATIVE [facility] Comment on above: Performed By: #### U A ####[facility] Imheoyvcsc1875[address] [place], [place] [address]Dr. Airam Tripathi Clarity (U) CLEAR Normal CLEAR [facility] Comment on above: Performed By: #### U A ####[facility] Vjuuhtuhrr27[address] [place] [address]DrKianna Tripathi Color (U) LT. YELLOW Normal YELLOW [facility] Comment on above: Performed By: #### U A ####[facility] Dbrwkpgmme1435 [place] [address]Dr. Airam Tripathi Glucose Ql (U) Negative Normal NEGATIVE [facility] Comment on above: Performed By: #### U A ####[facility] Dzculerhdq0185 [place] [address]Dr. Selenaneil Tripathi Hemoglobin Ql (U) Negative Normal NEGATIVE [facility] Comment on above: Performed By: #### U A ####[facility] Zkdaxtrysu6547 [place] [address]Dr. Airam Tripathi Ketones Ql (U) Negative Normal NEGATIVE [facility] Comment on above: Performed By: #### U A ####[facility] Wpugryenyq1807[address] [place], [place] [address]Dr. Airam Tripathi LEUKOCYTES TRACE Abnormal NEGATIVE [facility] Comment on above: Performed By: #### U A ####[facility] Yzxxrzuxck6945[address] [place], [place] [address]Dr. Airam Tripathi Nitrite Ql (U) Negative Normal NEGATIVE [facility] Comment on above: Performed By: #### U A ####[facility] Votbhtaojt196[address] [place], [place] [address]Dr. Selenaneil Deuce pH (U) 5.5 [pH] Normal 5-9 [facility] Comment on above: Performed By: #### U A ####[facility] Yvokaapoxf637[address] [place], [place] [address]Dr. Airam Tripathi SPEC GRAVITY 1.010 Normal 1.005-<=1. 025 [facility] Comment on above: Performed By: #### U A ####[facility] Huunqqhvqv0530[address] [place], [place] [address]Dr. Airam Tripathi UA PROTEIN Negative Normal NEGATIVE/ TRACE [facility] Comment on above: Performed By: #### U A ####[facility] Tjzvmtbgud3814[address] [place], [place] [address]Dr. Airam Tripathi Urobilinogen Qn (U) 0.2 {Ligia'U}/dL Normal 0.2 - 1. 0 [facility] Comment on above: Performed By: #### U A ####[facility] Jmnipdcgtt6768[address] [place], [place] [address]Dr. Airam Tripathi URIC ACID SERUMon 09-19-2022 Urate [Mass/Vol] 6.9 mg/dL Critically high 2.6-6.0 [facility] Comment on above: Performed By: #### U TRESSA ####[facility] Qtymgghnmi0145[address] [place], [place] [address]Dr. Airam Tripathi URINE T PROTEIN CREAT RATIOo n 09-19-2022 UR TOTAL PROTEIN <6.0 Normal <=12.0 [facility] Comment on above: Performed By: #### U RTPCR ####[facility] Gybdumzfij4215[address] [place], [place] [address]Dr. Airam Tripathi URINE CREAT 15.12 mg/dL Critically low 20.00-300. 00 [facility] Comment on above: Performed By: #### U RTPCR ####[facility] Sdsqzimklc6515[address] [place], [place] [address]Dr. Airam Tripathi VITAMIN D 25 OHon 09-19-2022 VIT D 25-OH 75.9 ng/mL Normal [facility] Comment on above: Performed By: #### V ITAD ####[facility] Cddceilwof5100[address] [place], [place] [address]Dr. Airam Tripathi VIT D RANGES SEE BELOW Normal [facility] Comment on above: Result Comment: <20 ng/mL Vit D deficient 20 - <30 ng/mL Vit D insufficient 30 - 100 ng/mL Vit D sufficient >100 ng/mL Potential Toxicity Performed By: #### V ITAD ####[facility] Uhjkwpryby1458[address] [place], [place] [address]Dr. Airam Tripathi OSMOLALITYon 09-14-2022 Osmolality [Osmolality] 272 mosm/kg Critically low 275-295 [facility] Comment on above: Performed By: #### O SMO ####[facility] Sqjghizobj819[address] [place], [place] [address]Dr. Airam Tripathi CBC AUTO DIFFon 09-12-2022 BASO # 0.0 103/ul Normal 0.0-0.1 [facility] Comment on above: Performed By: #### C BC ####[facility] Kwzmxdzdxr7111 [place] [address]Dr. Airam Tripathi Basophils/100 WBC (Bld) 0.5 % Normal 0.2-2.0 [facility] Comment on above: Performed By: #### C BC ####[facility] Zctkbjznto417[address] [place], [place] [address]Dr. Airam Tripathi EO # 0.2 103/ul Normal 0.0-0.7 [facility] Comment on above: Performed By: #### C BC ####[facility] Hscoloctxr652[address] [place], [place] [address]Dr. Airam Tripathi Eosinophils/100 WBC (Bld) 2.4 % Normal 0.9-7.0 [facility] Comment on above: Performed By: #### C BC ####[facility] Cigjsfekpj7415[address] [place], [place] [address]Dr. Airam Tripathi Erythrocyte distribution width (RBC) [Ratio] 14.8 % Normal 11.0-15.0 [facility] Comment on above: Performed By: #### C BC ####[facility] Rfoswdigln7130[address] [place], [place] [address]Dr. Airam Tripathi Hematocrit (Bld) [Volume fraction] 32.6 % Critically low 36.0-48.0 [facility] Comment on above: Performed By: #### C BC ####[facility] Qvofghckkz3550[address] [place], [place] [address]Dr. Airam Tripathi Hemoglobin (Bld) [Mass/Vol] 10.1 g/dL Critically low 12.0-16.0 [facility] Comment on above: Performed By: #### C BC ####[facility] Cfxblpmfat3954[address] [place], [place] [address]Dr. Selenaneil Tripathi IG # 0.05 10e3/ul Critically high 0.00-0.03 [facility] Comment on above: Performed By: #### C BC ####[facility] Xdegcwxhnb9980[address] [place], [place] [address]Dr. Selenaneil Tripathi IG % 0.7 % Critically high 0.0-0.5 [facility] Comment on above: Performed By: #### C BC ####[facility] Xwmrcxchze8457 [place] [address]Dr. Airam Trpiathi LYMPH # 1.9 103/ul Normal 1.2-3.8 [facility] Comment on above: Performed By: #### C BC ####[facility] Vdfetovikl5781 [place] [address]Dr. Airam Deuce Lymphocytes/100 WBC (Bld) 24.7 % Normal 20.5-60.0 [facility] Comment on above: Performed By: #### C BC ####[facility] Zjbgwjlwlq[address] [place], [place] [address]DrKianna Airam Deuce MANUAL DIFF REQ NO Normal [facility] Comment on above: Performed By: #### C BC ####[facility] Iqthwmnjaq120[address] [place], [place] [address]Dr. Airam Deuce MCH (RBC) [Entitic mass] 28.0 pg Normal 26.7-34.0 [facility] Comment on above: Performed By: #### C BC ####[facility] Qiobjcusqr486[address] [place], [place] [address]Dr. Airam Tripahti MCHC (RBC) [Mass/Vol] 31.0 g/dL Normal 29.9-35.2 [facility] Comment on above: Performed By: #### C BC ####[facility] Wvrfzhedyo257[address] [place], [place] [address]DrKianna Airam Deuce MCV (RBC) [Entitic vol] 90.3 fL Normal 81.0-99.0 [facility] Comment on above: Performed By: #### C BC ####[facility] Nfvfmhevhr114[address] [place], [place] [address]DrKianna Airam Deuce MONO # 0.5 103/ul Normal 0.3-0.8 [facility] Comment on above: Performed By: #### C BC ####[facility] Inyvxguryx808[address] [place], [place] [address]Dr. Airam Tripathi Monocytes/100 WBC (Bld) 6.0 % Normal 1.7-12.0 [facility] Comment on above: Performed By: #### C BC ####[facility] Lekthmiiyx5271 [place] [address]Dr. Airam Tripathi NEUT # 5.0 103/ul Normal 1.4-6.5 [facility] Comment on above: Performed By: #### C BC ####[facility] Uqjpjvsdhs6913 [place] [id number]. Airam Tripathi Neutrophils/100 WBC (Bld) 65.7 % Normal 43.0-75.0 [facility] Comment on above: Performed By: #### C BC ####[facility] Opydiwbmwl7[address] [place] [address]Dr. Airam Tripathi Platelet mean volume (Bld) [Entitic vol] 9.5 fL Normal 9.5-13.5 [facility] Comment on above: Performed By: #### C BC ####[facility] Ecsrslbdff4492 [place] [address]Dr. Airam Tripathi PLT 307 103/ul Normal 150-450 [facility] Comment on above: Performed By: #### C BC ####[facility] Narhdqhicr0135[address] [place], [place] [address]Dr. Airam Tripathi RBC 3.61 106/ul Critically low 4.20-5.40 [facility] Comment on above: Performed By: #### C BC ####[facility] Dcjckmohen9876 [place] [address]Dr. Airam Tripathi WBC 7.5 103/ul Normal 4.0-11.0 [facility] Comment on above: Performed By: #### C BC ####[facility] Whvikodysg6366 [place] [id number] Tripathi PROF 14(COMP METB)on 023 Albumin [Mass/Vol] 3.5 g/dL Normal 3.4-5.0 [facility] Comment on above: Performed By: #### C MP ####[facility] Xvumvbcqvj4580[address] [place], [place] [address]DrKianna Tripathi Albumin/Globulin [Mass ratio] 1.1 {ratio} Normal [facility] Comment on above: Performed By: #### C MP ####[facility] Lrclcethoj8027 [place] [address]Dr. Airam Deuce ALP [Catalytic activity/Vol] 126 U/L Critically high 46-116 [facility] Comment on above: Performed By: #### C MP ####[facility] Vcytiidxib5283 [place] [address]Dr. Selenaneil Deuce ALT [Catalytic activity/Vol] 18 U/L Normal 14-59 [facility] Comment on above: Performed By: #### C MP ####[facility] Ovzxissrjs0023[address] [place], [place] [address]Dr. Airam Tripathi Anion gap [Moles/Vol] 11.1 mmol/L Normal Th e [facility] Comment on above: Performed By: #### C MP ####[facility] Doopqbiscy6490[address] [place], [place] [address]Dr. Airam Tripathi AST [Catalytic activity/Vol] 26 U/L Normal 15-37 [facility] Comment on above: Performed By: #### C MP ####[facility] Blxbcjyfkl765[address] [place], [place] [address]Dr. Airam Tripathi Bilirubin [Mass/Vol] 0.3 mg/dL Normal 0.2-1.0 [facility] Comment on above: Performed By: #### C MP ####[facility] Vmmwhpeibv907[address] [place], [place] [address]Dr. Airam Tripathi Calcium [Mass/Vol] 8.5 mg/dL Normal 8.5-10.1 [facility] Comment on above: Performed By: #### C MP ####[facility] Vlnvmysjav236[address] [place], [place] [address]Dr. Airam Tripathi Chloride [Moles/Vol] 98 mmol/L Normal 98-107 [facility] Comment on above: Performed By: #### C MP ####[facility] Vapihfbzec6215 [place] [address]Dr. Airam Tripathi CO2 [Moles/Vol] 23.9 mmol/L Normal 21.0-32.0 [facility] Comment on above: Performed By: #### C MP ####[facility] Nxgcrlvcyy4103 [place] [id number]. Airam Tripathi Creatinine [Mass/Vol] 1.40 mg/dL Critically high 0.55-1.02 [facility] Comment on above: Performed By: #### C MP ####[facility] Tmbsdjjhzn6246 [place] [phone]. Airam Tripathi EGFR-AF LUXEMBOURGER 46 mL/min/1.73m2 Critically low >=60 [facility] Comment on above: Performed By: #### C MP ####[facility] Hnucnqrvjb8216 [place] [phone]. Airam Tripathi EGFR-NON AF LUXEMBOURGER 38 mL/min/1.73m2 Critically low >=60 [facility] Comment on above: Performed By: #### C MP ####[facility] Vsmtwimlus9913 [place] [address]Dr. Airam Tripathi Globulin (S) [Mass/Vol] 3.3 g/dL Normal [facility] Comment on above: Performed By: #### C MP ####[facility] Jrqmelikkk0631 [place] [phone]. Airam Tripathi Glucose [Mass/Vol] 72 mg/dL Critically low 74-106 [facility] Comment on above: Performed By: #### C MP ####[facility] Visuygtfxq4804 [place] [phone]. Airam Tripathi Potassium [Moles/Vol] 5.0 mmol/L Normal 3.5-5.1 [facility] Comment on above: Performed By: #### C MP ####[facility] Gspvxeuehg0210 [place] [phone]. Airam Tripathi Protein [Mass/Vol] 6.8 g/dL Normal 6.4-8.2 [facility] Comment on above: Performed By: #### C MP ####[facility] Aqujwjaxqd6914 [place] [id number]. Airam Tripathi Sodium [Moles/Vol] 128 mmol/L Critically low 136-145 Th [facility] Comment on above: Performed By: #### C MP ####[facility] Yllixxbect9478 [place] [address]Dr. Airam Tripathi Urea nitrogen [Mass/Vol] 27.0 mg/dL Critically high 7.0-18.0 [facility] Comment on above: Performed By: #### C MP ####[facility] Enmyajgybr4384[address] [place], [place] [address]Dr. Airam Tripathi Urea nitrogen/Creatinine [Mass ratio] 19.3 mg/mg Normal [facility] Comment on above: Performed By: #### C MP ####[facility] Jskvscprcw6914[address] [place], [place] [address]Dr. Airam Tripathi OSMOLALITYon 09-10-2022 Osmolality [Osmolality] 275 mosm/kg Normal 275-295 [facility] Comment on above: Performed By: #### O SMO ####[facility] Yudxeahxuf038[address] [place], [place] [address]Dr. Airam Tripathi CBC AUTO DIFFon 09-08-2022 BASO # 0.0 103/ul Normal 0.0-0.1 [facility] Comment on above: Performed By: #### C BC ####[facility] Jftttemrme45[address] [place], [place] [address]Dr. Airam Tripathi Basophils/100 WBC (Bld) 0.5 % Normal 0.2-2.0 [facility] Comment on above: Performed By: #### C BC ####[facility] Jstaeobimf6[address] [place], [place] [address]Dr. Airam Tripathi EO # 0.1 103/ul Normal 0.0-0.7 [facility] Comment on above: Performed By: #### C BC ####[facility] Jgflmltobk08[address] [place], [place] [address]Dr. Airam Deuce Eosinophils/100 WBC (Bld) 1.7 % Normal 0.9-7.0 [facility] Comment on above: Performed By: #### C BC ####[facility] Kwhqzzibcr2158[address] [place], [place] [address]Dr. Airam Tripathi Erythrocyte distribution width (RBC) [Ratio] 14.7 % Normal 11.0-15.0 [facility] Comment on above: Performed By: #### C BC ####[facility] [address] [place] [address]DrKianna Tripathi Hematocrit (Bld) [Volume fraction] 30.3 % Critically low 36.0-48.0 [facility] Comment on above: Performed By: #### C BC ####[facility] Wskjmvguqs37[address] [place] [address]DrKianna Tripathi Hemoglobin (Bld) [Mass/Vol] 9.3 g/dL Critically low 12.0-16.0 [facility] Comment on above: Performed By: #### C BC ####[facility] Qrlrgiyzmk176[address] [place], [place] [address]DrKianna Tripathi IG # 0.03 10e3/ul Normal 0.00-0.03 [facility] Comment on above: Performed By: #### C BC ####[facility] Ncvnuzotvv353[address] [place], [place] [address]DrKianna Tripathi IG % 0.5 % Normal 0.0-0.5 [facility] Comment on above: Performed By: #### C BC ####[facility] Frpvnqkvcu22[address] [place], [place] [address]DrKianna Tripathi LYMPH # 0.9 103/ul Critically low 1.2-3.8 [facility] Comment on above: Performed By: #### C BC ####[facility] Vvudgydavw3[address] [place], [place] [address]DrKianna Tripathi Lymphocytes/100 WBC (Bld) 13.6 % Critically low 20.5-60.0 [facility] Comment on above: Performed By: #### C BC ####[facility] Sjwiahlimw15[address] [place], [place] [address]DrKianna Tripathi MANUAL DIFF REQ NO Normal [facility] Comment on above: Performed By: #### C BC ####[facility] Cxbqkbzycp6817[address] [place], [place] [address]DrKianna Tripathi MCH (RBC) [Entitic mass] 27.4 pg Normal 26.7-34.0 [facility] Comment on above: Performed By: #### C BC ####[facility] Lghxfudqtj08[address] [place] [address]Dr. Airam Tripathi MCHC (RBC) [Mass/Vol] 30.7 g/dL Normal 29.9-35.2 [facility] Comment on above: Performed By: #### C BC ####[facility] Qfoywgsvnu025[address] [place] [address]DrKianna Tripathi MCV (RBC) [Entitic vol] 89.4 fL Normal 81.0-99.0 [facility] Comment on above: Performed By: #### C BC ####[facility] Sybdkzwcag017[address] [place], [place] [address]DrKianna Tripathi MONO # 0.5 103/ul Normal 0.3-0.8 [facility] Comment on above: Performed By: #### C BC ####[facility] Gpquziytio0890[address] [place], [place] [address]Dr. Airam Tripathi Monocytes/100 WBC (Bld) 8.0 % Normal 1.7-12.0 [facility] Comment on above: Performed By: #### C BC ####[facility] Zybowngskt9367[address] [place], [place] [address]DrKianna Tripathi NEUT # 5.0 103/ul Normal 1.4-6.5 [facility] Comment on above: Performed By: #### C BC ####[facility] Aosfgpciwz59999[address] [place], [place] [address]Dr. Airam Tripathi Neutrophils/100 WBC (Bld) 75.7 % Critically high 43.0-75.0 [facility] Comment on above: Performed By: #### C BC ####[facility] Sqixbgodje7815[address] [place], [place] [address]DrKianna Tripathi Platelet mean volume (Bld) [Entitic vol] 10.4 fL Normal 9.5-13.5 [facility] Comment on above: Performed By: #### C BC ####[facility] Nnztpzparc028[address] [place], [place] [address]Dr. Airam Tripathi PLT 315 103/ul Normal 150-450 [facility] Comment on above: Performed By: #### C BC ####[facility] Oyvqhyffyg4[address] [place] [address]Dr. Selenaneil Deuce RBC 3.39 106/ul Critically low 4.20-5.40 [facility] Comment on above: Performed By: #### C BC ####[facility] Pkvokwjeez70[address] [place] [address]Dr. Airam Tripathi WBC 6.5 103/ul Normal 4.0-11.0 [facility] Comment on above: Performed By: #### C BC ####[facility] Endcudfhkg7[address] [place] [address]Dr. Airam Tripathi PROF 14(COMP METB)on 023 Albumin [Mass/Vol] 3.1 g/dL Critically low 3.4-5.0 [facility] Comment on above: Performed By: #### C MP ####[facility] Pophoucesb48299[address] [place], [place] [address]Dr. Airam Tripathi Albumin/Globulin [Mass ratio] 1.0 {ratio} Normal [facility] Comment on above: Performed By: #### C MP ####[facility] Lefcgkwpmz0433[address] [place], [place] [address]Dr. Airam Tripathi ALP [Catalytic activity/Vol] 126 U/L Critically high 46-116 [facility] Comment on above: Performed By: #### C MP ####[facility] Nhyijodidh7[address] [place] [address]Dr. Airam Tripathi ALT [Catalytic activity/Vol] 18 U/L Normal 14-59 [facility] Comment on above: Performed By: #### C MP ####[facility] Ikcohfgyth1839 [place] [address]Dr. Airam Tripathi Anion gap [Moles/Vol] 11.4 mmol/L Normal [facility] Comment on above: Performed By: #### C MP ####[facility] Ndtuskrlpm5761 [place] [address]Dr. Airam Tripathi AST [Catalytic activity/Vol] 25 U/L Normal 15-37 [facility] Comment on above: Performed By: #### C MP ####[facility] Hpmzwkjbvs2231 [place] [address]Dr. Airam Tripathi Bilirubin [Mass/Vol] 0.3 mg/dL Normal 0.2-1.0 [facility] Comment on above: Performed By: #### C MP ####[facility] Mnwqwomhor55[address] [place] [address]Dr. Airam Deuce Calcium [Mass/Vol] 8.6 mg/dL Normal 8.5-10.1 [facility] Comment on above: Performed By: #### C MP ####[facility] Obbspxjyed24[address] [place] [address]Dr. Airam Deuce Chloride [Moles/Vol] 97 mmol/L Critically low 98-107 [facility] Comment on above: Performed By: #### C MP ####[facility] Weputdyysh5620[address] [place], [place] [address]Dr. Airam Deuce CO2 [Moles/Vol] 26.1 mmol/L Normal 21.0-32.0 [facility] Comment on above: Performed By: #### C MP ####[facility] Vnikpgcath835[address] [place], [place] [address]Dr. Airam Deuce Creatinine [Mass/Vol] 1.07 mg/dL Critically high 0.55-1.02 [facility] Comment on above: Performed By: #### C MP ####[facility] Phtrlhefwp7522[address] [place], [place] [address]Dr. Selenaneil Deuce EGFR-AF LUXEMBOURGER >60 Normal >=60 [facility] Comment on above: Performed By: #### C MP ####[facility] Wmcicstclp36[address] [place] [id number]. Selenaneil Deuce EGFR-NON AF LUXEMBOURGER 52 mL/min/1.73m2 Critically low >=60 [facility] Comment on above: Performed By: #### C MP ####[facility] Webvbuxxaz362[address] [place], [place] [address]Dr. Airam Tripathi Globulin (S) [Mass/Vol] 3.2 g/dL Normal [facility] Comment on above: Performed By: #### C MP ####[facility] Qxznhtisqk7231 [place] [address]Dr. Airam Tripathi Glucose [Mass/Vol] 83 mg/dL Normal 74-106 [facility] Comment on above: Performed By: #### C MP ####[facility] Wsaunmdceb1275 [place] [address]Dr. Airam Tripathi Potassium [Moles/Vol] 5.5 mmol/L Critically high 3.5-5.1 [facility] Comment on above: Performed By: #### C MP ####[facility] Dnfdwfmygm2964 [place] [address]Dr. Airam Tripathi Protein [Mass/Vol] 6.3 g/dL Critically low 6.4-8.2 [facility] Comment on above: Performed By: #### C MP ####[facility] Hszppuhsxf4195[address] [place], [place] [address]Dr. Airam Tripathi Sodium [Moles/Vol] 129 mmol/L Critically low 136-145 [facility] Comment on above: Performed By: #### C MP ####[facility] Qiftsounso928195 [address] [place], [place] [address]Dr. Airam Tripathi Urea nitrogen [Mass/Vol] 37.0 mg/dL Critically high 7.0-18.0 [facility] Comment on above: Performed By: #### C MP ####[facility] Cnswymdwns9737[address] [place], [place] [address]Dr. Airam Tripathi Urea nitrogen/Creatinine [Mass ratio] 34.6 mg/mg Normal [facility] Comment on above: Performed By: #### C MP ####[facility] Zhqeooccuw54[address] [place] [address]Dr. Airam Tripathi OSMOLALITYon 09-02-2022 Osmolality [Osmolality] 279 mosm/kg Normal 275-295 [facility] Comment on above: Performed By: #### O SMO ####[facility] Vfjaffqczg287[address] [place], [place] [address]Dr. Airam Tripathi CBC AUTO DIFFon 08-31-2022 BASO # 0.0 103/ul Normal 0.0-0.1 [facility] Comment on above: Performed By: #### C BC ####[facility] Geeerbotzd440[address] [place], [place] [address]Dr. Airam Tripathi Basophils/100 WBC (Bld) 0.4 % Normal 0.2-2.0 [facility] Comment on above: Performed By: #### C BC ####[facility] Qosagmiatn4014[address] [place], [place] [address]Dr. Airam Tripathi EO # 0.2 103/ul Normal 0.0-0.7 [facility] Comment on above: Performed By: #### C BC ####[facility] Vpngvvcbvz924[address] [place], [place] [address]Dr. Airam Tripathi Eosinophils/100 WBC (Bld) 3.2 % Normal 0.9-7.0 [facility] Comment on above: Performed By: #### C BC ####[facility] Bxzalexuxq3032[address] [place], [place] [address]Dr. Ariam Tripathi Erythrocyte distribution width (RBC) [Ratio] 14.4 % Normal 11.0-15.0 [facility] Comment on above: Performed By: #### C BC ####[facility] Kxcprahngi847[address] [place], [place] [address]Dr. Airam Tripathi Hematocrit (Bld) [Volume fraction] 27.8 % Critically low 36.0-48.0 [facility] Comment on above: Performed By: #### C BC ####[facility] Fntyfvomrz696[address] [place], [place] [address]Dr. Airam Tripathi Hemoglobin (Bld) [Mass/Vol] 8.7 g/dL Critically low 12.0-16.0 [facility] Comment on above: Performed By: #### C BC ####[facility] Ausgaracow7497[address] [place], [place] [address]Dr. Airam Tripathi IG # 0.05 10e3/ul Critically high 0.00-0.03 [facility] Comment on above: Performed By: #### C BC ####[facility] Xwmsgibzkz245[address] [place], [place] [address]DrKianna Tripathi IG % 0.7 % Critically high 0.0-0.5 [facility] Comment on above: Performed By: #### C BC ####[facility] Zsrwlszdiw4804 [place] [address]DrKianna Tripathi LYMPH # 1.7 103/ul Normal 1.2-3.8 [facility] Comment on above: Performed By: #### C BC ####[facility] Mjyzaovxyj3132 [place] [address]DrKianna Tripathi Lymphocytes/100 WBC (Bld) 23.6 % Normal 20.5-60.0 [facility] Comment on above: Performed By: #### C BC ####[facility] Ieerejlnvn479[address] [place], [place] [address]DrKianna Tripathi MANUAL DIFF REQ NO Normal [facility] Comment on above: Performed By: #### C BC ####[facility] Fcimdhubip9305[address] [place], [place] [address]DrKianna Tripathi MCH (RBC) [Entitic mass] 27.8 pg Normal 26.7-34.0 [facility] Comment on above: Performed By: #### C BC ####[facility] Kohpbcbfdn1077[address] [place], [place] [address]DrKianna Airam Deuce MCHC (RBC) [Mass/Vol] 31.3 g/dL Normal 29.9-35.2 [facility] Comment on above: Performed By: #### C BC ####[facility] Mainetmxac236[address] [place], [place] [address]DrKianna Tripathi MCV (RBC) [Entitic vol] 88.8 fL Normal 81.0-99.0 [facility] Comment on above: Performed By: #### C BC ####[facility] Rrrycpotyw6147[address] [place], [place] [address]DrKianna Tripathi MONO # 0.5 103/ul Normal 0.3-0.8 [facility] Comment on above: Performed By: #### C BC ####[facility] Vleygcfzhz2220[address] [place], [place] [address]DrKianna Tripathi Monocytes/100 WBC (Bld) 6.9 % Normal 1.7-12.0 [facility] Comment on above: Performed By: #### C BC ####[facility] Wseezqlkxu30[address] [place] [address]Dr. Selenaneil Tripathi NEUT # 4.7 103/ul Normal 1.4-6.5 [facility] Comment on above: Performed By: #### C BC ####[facility] Mwksqvhfsc1095 [place] [address]DrKianna Tripathi Neutrophils/100 WBC (Bld) 65.2 % Normal 43.0-75.0 [facility] Comment on above: Performed By: #### C BC ####[facility] Uzltjwparz2397 [place] [address]DrKianna Tripathi Platelet mean volume (Bld) [Entitic vol] 9.8 fL Normal 9.5-13.5 [facility] Comment on above: Performed By: #### C BC ####[facility] Mnxkxhqrkd7615[address] [place], [place] [address]DrKianna Tripathi PLT 225 103/ul Normal 150-450 [facility] Comment on above: Performed By: #### C BC ####[facility] Zcdlszzcpg81969[address] [place], [place] [address]DrKianna Tripathi RBC 3.13 106/ul Critically low 4.20-5.40 [facility] Comment on above: Performed By: #### C BC ####[facility] Iyfutqxits8185 [place] [address]DrKianna Tripathi WBC 7.3 103/ul Normal 4.0-11.0 [facility] Comment on above: Performed By: #### C BC ####[facility] Lknicmtcec7105 [place] [address]Dr. Airam Tripathi PROF 14(COMP METB)on 023 Albumin [Mass/Vol] 3.0 g/dL Critically low 3.4-5.0 [facility] Comment on above: Performed By: #### C MP ####[facility] Myjyijrott7265[address] [place], [place] [address]DrKianna Tripathi Albumin/Globulin [Mass ratio] 1.1 {ratio} Normal [facility] Comment on above: Performed By: #### C MP ####[facility] Edzvmyalqk5673 [place] [address]Dr. Airam Deuce ALP [Catalytic activity/Vol] 132 U/L Critically high 46-116 [facility] Comment on above: Performed By: #### C MP ####[facility] Dtizlhwktm758[address] [place], [place] [address]Dr. Airam Deuce ALT [Catalytic activity/Vol] 20 U/L Normal 14-59 [facility] Comment on above: Performed By: #### C MP ####[facility] Refufzemje0415[address] [place], [place] [address]Dr. Selenaneil Deuce Anion gap [Moles/Vol] 9.5 mmol/L Normal [facility] Comment on above: Performed By: #### C MP ####[facility] Gsuvhpdizs0487[address] [place], [place] [address]Dr. Airam Deuce AST [Catalytic activity/Vol] 25 U/L Normal 15-37 [facility] Comment on above: Performed By: #### C MP ####[facility] Ootcfgnkat7074[address] [place], [place] [address]Dr. Airam Deuce Bilirubin [Mass/Vol] 0.2 mg/dL Normal 0.2-1.0 [facility] Comment on above: Performed By: #### C MP ####[facility] Kboryhoogz32[address] [place], [place] [address]Dr. Airam Tripathi Calcium [Mass/Vol] 7.9 mg/dL Critically low 8.5-10.1 Th [facility] Comment on above: Performed By: #### C MP ####[facility] Rppdzusdqc77299[address] [place], [place] [address]Dr. Airam Tripathi Chloride [Moles/Vol] 97 mmol/L Critically low 98-107 [facility] Comment on above: Performed By: #### C MP ####[facility] Jpudtynhgu601[address] [place], [place] [address]Dr. Airam Tripathi CO2 [Moles/Vol] 27.3 mmol/L Normal 21.0-32.0 [facility] Comment on above: Performed By: #### C MP ####[facility] Xfeojnypod91[address] [place] [address]Dr. Airam Deuce Creatinine [Mass/Vol] 1.58 mg/dL Critically high 0.55-1.02 [facility] Comment on above: Performed By: #### C MP ####[facility] Vajemahgxt12[address] [place] [address]Dr. Airam Tripathi EGFR-AF LUXEMBOURGER 40 mL/min/1.73m2 Critically low >=60 [facility] Comment on above: Performed By: #### C MP ####[facility] Byepmoptjb6057 [place] [address]Dr. Airam Tripathi EGFR-NON AF LUXEMBOURGER 33 mL/min/1.73m2 Critically low >=60 [facility] Comment on above: Performed By: #### C MP ####[facility] Ybixhtfzzq8097[address] [place], [place] [address]Dr. Airam Tripathi Globulin (S) [Mass/Vol] 2.8 g/dL Normal [facility] Comment on above: Performed By: #### C MP ####[facility] Ntwczohwea7348[address] [place], [place] [address]Dr. Airam Tripathi Glucose [Mass/Vol] 111 mg/dL Critically high 74-106 [facility] Comment on above: Performed By: #### C MP ####[facility] Djfowbxnvp815[address] [place], [place] [address]Dr. Airam Tripathi Potassium [Moles/Vol] 4.8 mmol/L Normal 3.5-5.1 [facility] Comment on above: Performed By: #### C MP ####[facility] Eimdjfdctp5595[address] [place], [place] [address]Dr. Airam Tripathi Protein [Mass/Vol] 5.8 g/dL Critically low 6.4-8.2 Th e [facility] Comment on above: Performed By: #### C MP ####[facility] Wttgjdwohr6077[address] [place], [place] [address]Dr. Airam Tripathi Sodium [Moles/Vol] 129 mmol/L Critically low 136-145 Th e [facility] Comment on above: Performed By: #### C MP ####[facility] Aqaaeykiwi6324[address] [place], [place] [address]Dr. Airam Tripathi Urea nitrogen [Mass/Vol] 44.0 mg/dL Critically high 7.0-18.0 [facility] Comment on above: Performed By: #### C MP ####[facility] Sbbajkllfo215[address] [place], [place] [address]Dr. Airam Tripathi Urea nitrogen/Creatinine [Mass ratio] 27.8 mg/mg Normal [facility] Comment on above: Performed By: #### C MP ####[facility] Xrqmnrunid270[address] [place], [place] [address]Dr. Airam Tripathi OSMOLALITYon 08-28-2022 Osmolality [Osmolality] 288 mosm/kg Normal 275-295 [facility] Comment on above: Performed By: #### O SMO ####[facility] Ptilmeztsr224[address] [place], [place] [address]DrKianna Tripathi CBC AUTO DIFFon 08-25-2022 BASO # 0.0 103/ul Normal 0.0-0.1 [facility] Comment on above: Performed By: #### C BC ####[facility] Zzxdebcwrp820[address] [place], [place] [address]Dr. Airam Tripathi Basophils/100 WBC (Bld) 0.5 % Normal 0.2-2.0 [facility] Comment on above: Performed By: #### C BC ####[facility] Zzkvvxtoqh7140[address] [place], [place] [address]DrKianna Tripathi EO # 0.4 103/ul Normal 0.0-0.7 [facility] Comment on above: Performed By: #### C BC ####[facility] Xrkebrarot686[address] [place], [place] [address]Dr. Airam Tripathi Eosinophils/100 WBC (Bld) 4.8 % Normal 0.9-7.0 [facility] Comment on above: Performed By: #### C BC ####[facility] Ssexdmqxbh790[address] [place], [place] [address]DrKianna Tripathi Erythrocyte distribution width (RBC) [Ratio] 14.2 % Normal 11.0-15.0 [facility] Comment on above: Performed By: #### C BC ####[facility] Bmnsvehqic7116 [place] [address]Dr. Airam Tripathi Hematocrit (Bld) [Volume fraction] 31.1 % Critically low 36.0-48.0 [facility] Comment on above: Performed By: #### C BC ####[facility] Exdpfxsgwj0898[address] [place], [place] [address]Dr. Selenaneil Tripathi Hemoglobin (Bld) [Mass/Vol] 9.7 g/dL Critically low 12.0-16.0 [facility] Comment on above: Performed By: #### C BC ####[facility] Cadzsszllj1478[address] [place], [place] [address]Dr. Airam Tripathi IG # 0.05 10e3/ul Critically high 0.00-0.03 [facility] Comment on above: Performed By: #### C BC ####[facility] Ddwalekhau2034[address] [place], [place] [address]Dr. Selenaneil Tripathi IG % 0.6 % Critically high 0.0-0.5 [facility] Comment on above: Performed By: #### C BC ####[facility] Shgudptqcd9927[address] [place], [place] [address]DrKianna Tripathi LYMPH # 1.7 103/ul Normal 1.2-3.8 [facility] Comment on above: Performed By: #### C BC ####[facility] Geskqjmimq4367[address] [place], [place] [address]DrKianna Tripathi Lymphocytes/100 WBC (Bld) 19.6 % Critically low 20.5-60.0 [facility] Comment on above: Performed By: #### C BC ####[facility] Azqbxuidcf079[address] [place], [place] [address]DrKianna Tripathi MANUAL DIFF REQ NO Normal [facility] Comment on above: Performed By: #### C BC ####[facility] Vpnrqfnhuz0357[address] [place], [place] [address]DrKianna Tripathi MCH (RBC) [Entitic mass] 28.2 pg Normal 26.7-34.0 [facility] Comment on above: Performed By: #### C BC ####[facility] Ozzxueqpby6848[address] [place], [place] [address]Dr. Airam Tripathi MCHC (RBC) [Mass/Vol] 31.2 g/dL Normal 29.9-35.2 [facility] Comment on above: Performed By: #### C BC ####[facility] Xpnykovdgh028[address] [place], [place] [address]Dr. Airam Deuce MCV (RBC) [Entitic vol] 90.4 fL Normal 81.0-99.0 [facility] Comment on above: Performed By: #### C BC ####[facility] Lqkztxfagi8168[address] [place], [place] [address]Dr. Airam Tripathi MONO # 0.6 103/ul Normal 0.3-0.8 [facility] Comment on above: Performed By: #### C BC ####[facility] Zpqsceydrc6137[address] [place], [place] [address]Dr. Airam Tripathi Monocytes/100 WBC (Bld) 7.4 % Normal 1.7-12.0 [facility] Comment on above: Performed By: #### C BC ####[facility] Yveexuqgfs050[address] [place], [place] [address]Dr. Selenaneil Deuce NEUT # 5.8 103/ul Normal 1.4-6.5 [facility] Comment on above: Performed By: #### C BC ####[facility] Zgwtubentq062[address] [place], [place] [address]Dr. Airam Tripathi Neutrophils/100 WBC (Bld) 67.1 % Normal 43.0-75.0 [facility] Comment on above: Performed By: #### C BC ####[facility] Gjhxyestow697[address] [place], [place] [address]Dr. Airam Tripathi Platelet mean volume (Bld) [Entitic vol] 9.9 fL Normal 9.5-13.5 [facility] Comment on above: Performed By: #### C BC ####[facility] Vfdkyxifli[address] [place] [address]Dr. Selenaneil Deuce PLT 320 103/ul Normal 150-450 [facility] Comment on above: Performed By: #### C BC ####[facility] Hpeoonjhrk26[address] [place] [address]Dr. Airam Deuce RBC 3.44 106/ul Critically low 4.20-5.40 [facility] Comment on above: Performed By: #### C BC ####[facility] Tzhwqhwpek[address] [place] [address]Dr. Selenaneil Deuce WBC 8.6 103/ul Normal 4.0-11.0 [facility] Comment on above: Performed By: #### C BC ####[facility] Nwnhevubbc[address] [place], [place] [address]DrKianna Tripathi PROF 14(COMP METB)on 023 Albumin [Mass/Vol] 3.4 g/dL Normal 3.4-5.0 [facility] Comment on above: Performed By: #### C MP ####[facility] Vlxjnqsyaz259[address] [place], [place] [address]Dr. Airam Tripathi Albumin/Globulin [Mass ratio] 1.1 {ratio} Normal [facility] Comment on above: Performed By: #### C MP ####[facility] Rqhogzuduk[address] [place], [place] [address]Dr. Airam Tripathi ALP [Catalytic activity/Vol] 170 U/L Critically high 46-116 [facility] Comment on above: Performed By: #### C MP ####[facility] Evzzxzdqyn[address] [place] [address]Dr. Airam Tripathi ALT [Catalytic activity/Vol] 22 U/L Normal 14-59 [facility] Comment on above: Performed By: #### C MP ####[facility] Iqqwwmnbmq7[address] [place], [place] [address]DrKianna Tripathi Anion gap [Moles/Vol] 14.4 mmol/L Normal Th e [facility] Comment on above: Performed By: #### C MP ####[facility] Vkdpdxxwvj45[address] [place], [place] [address]Dr. Airam Tripathi AST [Catalytic activity/Vol] 25 U/L Normal 15-37 [facility] Comment on above: Performed By: #### C MP ####[facility] Qfbhkawhrp3502 [place] [address]Dr. Selenaneil Deuce Bilirubin [Mass/Vol] 0.3 mg/dL Normal 0.2-1.0 [facility] Comment on above: Performed By: #### C MP ####[facility] Srqfndqrai267[address] [place], [place] [address]Dr. Airam Tripathi Calcium [Mass/Vol] 8.2 mg/dL Critically low 8.5-10.1 [facility] Comment on above: Performed By: #### C MP ####[facility] Iuokjkiiiw175[address] [place], [place] [address]Dr. Airam Tripathi Chloride [Moles/Vol] 98 mmol/L Normal 98-107 [facility] Comment on above: Performed By: #### C MP ####[facility] Rptztdioho8957[address] [place], [place] [address]Dr. Airam Tripathi CO2 [Moles/Vol] 27.8 mmol/L Normal 21.0-32.0 [facility] Comment on above: Performed By: #### C MP ####[facility] Efguziaivd178[address] [place], [place] [address]Dr. Airam Tripathi Creatinine [Mass/Vol] 1.82 mg/dL Critically high 0.55-1.02 [facility] Comment on above: Performed By: #### C MP ####[facility] Qfilmcqjkb020[address] [place], [place] [address]Dr. Airam Tripathi EGFR-AF LUXEMBOURGER 34 mL/min/1.73m2 Critically low >=60 [facility] Comment on above: Performed By: #### C MP ####[facility] Ptvpvefdju7397[address] [place], [place] [address]Dr. Airam Tripathi EGFR-NON AF LUXEMBOURGER 28 mL/min/1.73m2 Critically low >=60 [facility] Comment on above: Performed By: #### C MP ####[facility] Jrjemluodq9144[address] [place], [place] [address]Dr. Airam Tripathi Globulin (S) [Mass/Vol] 3.2 g/dL Normal [facility] Comment on above: Performed By: #### C MP ####[facility] Pbdfixjrek5354[address] [place], [place] [address]Dr. Airam Tripathi Glucose [Mass/Vol] 78 mg/dL Normal 74-106 [facility] Comment on above: Performed By: #### C MP ####[facility] Zxjakynlba6397[address] [place], [place] [address]Dr. Airam Tripathi Potassium [Moles/Vol] 5.2 mmol/L Critically high 3.5-5.1 [facility] Comment on above: Performed By: #### C MP ####[facility] Hgcxxqkyrw1205[address] [place], [place] [address]Dr. Airam Tripathi Protein [Mass/Vol] 6.6 g/dL Normal 6.4-8.2 [facility] Comment on above: Performed By: #### C MP ####[facility] Wxalurlwyk6128[address] [place], [place] [address]Dr. Airam Tripathi Sodium [Moles/Vol] 135 mmol/L Critically low 136-145 [facility] Comment on above: Performed By: #### C MP ####[facility] Mhdwmyovrg2404[address] [place], [place] [address]DrKianna Tripathi Urea nitrogen [Mass/Vol] 51.0 mg/dL Critically high 7.0-18.0 [facility] Comment on above: Performed By: #### C MP ####[facility] Lqksydvgyd3098[address] [place], [place] [address]Dr. Airam Tripathi Urea nitrogen/Creatinine [Mass ratio] 28.0 mg/mg Normal [facility] Comment on above: Performed By: #### C MP ####[facility] Meqrbnfrzf[address] [place], [place] [address]DrKianna Tripathi OSMOLALITYon 08-18-2022 Osmolality [Osmolality] 280 mosm/kg Normal 275-295 [facility] Comment on above: Performed By: #### O SMO ####[facility] Sqmsfkgpfd237[address] [place], [place] [address]DrKianna Tripathi CBC AUTO DIFFon 08-16-2022 BASO # 0.0 103/ul Normal 0.0-0.1 [facility] Comment on above: Performed By: #### C BC ####[facility] Xfumheugkp45[address] [place] [address]Dr. Airam Deuce Basophils/100 WBC (Bld) 0.2 % Normal 0.2-2.0 [facility] Comment on above: Performed By: #### C BC ####[facility] Eewhhtpyth[address] [place] [address]Dr. Airam Tripathi EO # 0.2 103/ul Normal 0.0-0.7 [facility] Comment on above: Performed By: #### C BC ####[facility] Iciesdomzs2945[address] [place], [place] [address]Dr. Airam Tripathi Eosinophils/100 WBC (Bld) 2.4 % Normal 0.9-7.0 [facility] Comment on above: Performed By: #### C BC ####[facility] Jzcewloguv6107[address] [place], [place] [address]Dr. Selenaneil Tripathi Erythrocyte distribution width (RBC) [Ratio] 14.2 % Normal 11.0-15.0 [facility] Comment on above: Performed By: #### C BC ####[facility] Codweaptdq2998 [place] [address]Dr. Airam Tripathi Hematocrit (Bld) [Volume fraction] 30.1 % Critically low 36.0-48.0 [facility] Comment on above: Performed By: #### C BC ####[facility] Dcnnwatafk95[address] [place] [address]Dr. Selenaneil Tripathi Hemoglobin (Bld) [Mass/Vol] 9.2 g/dL Critically low 12.0-16.0 [facility] Comment on above: Performed By: #### C BC ####[facility] Svpbjzsotl450[address] [place] [address]Dr. Airam Tripathi IG # 0.04 10e3/ul Critically high 0.00-0.03 [facility] Comment on above: Performed By: #### C BC ####[facility] Sugveyszar7123 [place] [id number]. Airam Tripathi IG % 0.4 % Normal 0.0-0.5 [facility] Comment on above: Performed By: #### C BC ####[facility] Objrofosrm6[address] [place] [address]Dr. Airam Tripathi LYMPH # 0.9 103/ul Critically low 1.2-3.8 [facility] Comment on above: Performed By: #### C BC ####[facility] Ovpkzenria88[address] [place] [address]Dr. Airam Tripathi Lymphocytes/100 WBC (Bld) 9.3 % Critically low 20.5-60.0 [facility] Comment on above: Performed By: #### C BC ####[facility] Xnktrybdsw39[address] [place] [address]Dr. Airam Deuce MANUAL DIFF REQ NO Normal [facility] Comment on above: Performed By: #### C BC ####[facility] Xnityghdej[address] [place] [address]Dr. Airam Tripathi MCH (RBC) [Entitic mass] 27.7 pg Normal 26.7-34.0 [facility] Comment on above: Performed By: #### C BC ####[facility] Krkgymarim4255[address] [place], [place] [address]Dr. Airam Tripathi MCHC (RBC) [Mass/Vol] 30.6 g/dL Normal 29.9-35.2 [facility] Comment on above: Performed By: #### C BC ####[facility] Druudaueei[address]46 [place] [address]Dr. Airam Tripathi MCV (RBC) [Entitic vol] 90.7 fL Normal 81.0-99.0 [facility] Comment on above: Performed By: #### C BC ####[facility] Yiqvwlkjjo320[address] [place], [place] [address]Dr. Airam Deuce MONO # 0.5 103/ul Normal 0.3-0.8 [facility] Comment on above: Performed By: #### C BC ####[facility] Rgddptwtkl9449 [place] [address]Dr. Airam Tripathi Monocytes/100 WBC (Bld) 5.3 % Normal 1.7-12.0 [facility] Comment on above: Performed By: #### C BC ####[facility] Jlktettres1298 [place] [address]Dr. Airam Tripathi NEUT # 7.7 103/ul Critically high 1.4-6.5 [facility] Comment on above: Performed By: #### C BC ####[facility] Qhhbxatmfo4463 [place] [address]Dr. Airam Tripathi Neutrophils/100 WBC (Bld) 82.4 % Critically high 43.0-75.0 [facility] Comment on above: Performed By: #### C BC ####[facility] Cehripkugt2366 [place] [address]Dr. Airam Tripathi Platelet mean volume (Bld) [Entitic vol] 9.8 fL Normal 9.5-13.5 [facility] Comment on above: Performed By: #### C BC ####[facility] Mvuffgdxhz7822[address] [place], [place] [address]Dr. Airam Tripathi PLT 285 103/ul Normal 150-450 [facility] Comment on above: Performed By: #### C BC ####[facility] Wyjcrwfpwn1639 [place] [address]Dr. Airam Tripathi RBC 3.32 106/ul Critically low 4.20-5.40 [facility] Comment on above: Performed By: #### C BC ####[facility] Dgmrctgsni27029[address] [place], [place] [address]Dr. Airam Tripathi WBC 9.4 103/ul Normal 4.0-11.0 [facility] Comment on above: Performed By: #### C BC ####[facility] Vbgtdroeql708[address] [place], [place] [address]Dr. Airam Tripathi MRI WRIST RT WO CONon 2022 MRI WRIST RT WO CON Normal [facility] PROF 14(COMP METB)on 023 Albumin [Mass/Vol] 3.1 g/dL Critically low 3.4-5.0 Th e [facility] Comment on above: Performed By: #### C MP ####[facility] Owubrxuxyx14[address] [place] [address]Dr. Selenaneil Deuce Albumin/Globulin [Mass ratio] 0.9 {ratio} Normal [facility] Comment on above: Performed By: #### C MP ####[facility] Eqnpbsfxjx5998 [place] [address]Dr. Airam Tripathi ALP [Catalytic activity/Vol] 162 U/L Critically high 46-116 [facility] Comment on above: Performed By: #### C MP ####[facility] Ffdzeltzew128[address] [place], [place] [address]Dr. Selenaneil Tripathi ALT [Catalytic activity/Vol] 19 U/L Normal 14-59 [facility] Comment on above: Performed By: #### C MP ####[facility] Nuhumuuzis1433[address] [place], [place] [address]Dr. Airam Tripathi Anion gap [Moles/Vol] 13.0 mmol/L Normal Th [facility] Comment on above: Performed By: #### C MP ####[facility] Vnowhslcvb2775[address] [place], [place] [address]Dr. Airam Deuce AST [Catalytic activity/Vol] 21 U/L Normal 15-37 [facility] Comment on above: Performed By: #### C MP ####[facility] Zggjjlmbyw0790[address] [place], [place] [address]Dr. Airam Tripathi Bilirubin [Mass/Vol] 0.3 mg/dL Normal 0.2-1.0 [facility] Comment on above: Performed By: #### C MP ####[facility] Uksokdjiwq097[address] [place], [place] [address]Dr. Airam Tripathi Calcium [Mass/Vol] 8.4 mg/dL Critically low 8.5-10.1 [facility] Comment on above: Performed By: #### C MP ####[facility] Ohuirtqcyo479[address] [place], [place] [address]Dr. Airam Tripathi Chloride [Moles/Vol] 103 mmol/L Normal 98-107 [facility] Comment on above: Performed By: #### C MP ####[facility] Uuivtjefdi2032 [place] [id number]. Airam Tripathi CO2 [Moles/Vol] 23.3 mmol/L Normal 21.0-32.0 [facility] Comment on above: Performed By: #### C MP ####[facility] Lcltotaqxs4344 [place] [id number]. Airam Tripathi Creatinine [Mass/Vol] 1.02 mg/dL Normal 0.55-1.02 [facility] Comment on above: Performed By: #### C MP ####[facility] Nhalanpxbx6226 [place] [address]Dr. Airam Tripathi EGFR-AF LUXEMBOURGER >60 Normal >=60 [facility] Comment on above: Performed By: #### C MP ####[facility] Cxwhaeoudt1436[address] [place], [place] [address]Dr. Airam Deuce EGFR-NON AF LUXEMBOURGER 55 mL/min/1.73m2 Critically low >=60 [facility] Comment on above: Performed By: #### C MP ####[facility] Uuejpgpuwz0206 [place] [address]Dr. Airam Tripathi Globulin (S) [Mass/Vol] 3.4 g/dL Normal [facility] Comment on above: Performed By: #### C MP ####[facility] Dqtxxieijs7622[address] [place], [place] [address]Dr. Airam Tripathi Glucose [Mass/Vol] 88 mg/dL Normal 74-106 [facility] Comment on above: Performed By: #### C MP ####[facility] Aoyishhmih58[address] [place], [place] [address]Dr. Airam Tripathi Potassium [Moles/Vol] 4.3 mmol/L Normal 3.5-5.1 [facility] Comment on above: Performed By: #### C MP ####[facility] Vscvgfvqwa8604[address] [place], [place] [address]Dr. Airam Tripathi Protein [Mass/Vol] 6.5 g/dL Normal 6.4-8.2 [facility] Comment on above: Performed By: #### C MP ####[facility] Johtywiwsj4952 [place] [phone]. Airam Tripathi Sodium [Moles/Vol] 135 mmol/L Critically low 136-145 [facility] Comment on above: Performed By: #### C MP ####[facility] Ionpiooouw[address] [place], [place] [address]Lo. Airam Tripathi Urea nitrogen [Mass/Vol] 27.0 mg/dL Critically high 7.0-18.0 [facility] Comment on above: Performed By: #### C MP ####[facility] Rlpxntbagq3228 [place] [phone]. Airam Deuce Urea nitrogen/Creatinine [Mass ratio] 26.5 mg/mg Normal [facility] Comment on above: Performed By: #### C MP ####[facility] Bcnokfyykz25[address] [place] [id number]. Selenaneil Tripathi CT HEAD WO CONon 08-06-2022 CT HEAD WO CON Normal [facility] CT LSPINE WO CONon 3 CT LSPINE WO CON Normal [facility] XR HAND RT MIN 3Von 08-06-19 23 XR HAND RT MIN 3V Normal [facility] XR KNEE LT 4V or >on 023 XR KNEE LT 4V or > Normal [facility] XR WRIST RT MIN 3 Von 2022 XR WRIST RT MIN 3 V Normal [facility] OSMOLALITYon 08-05-2022 Osmolality [Osmolality] 282 mosm/kg Normal 275-295 [facility] Comment on above: Performed By: #### O SMO ####[facility] Marqyykycp05[address] [place] [id number]. Airam Deuce CBC AUTO DIFFon 08-03-2022 BASO # 0.0 103/ul Normal 0.0-0.1 [facility] Comment on above: Performed By: #### C BC ####[facility] Hnqqjlimrz5130 [place] [phone]. Airam Deuce Basophils/100 WBC (Bld) 0.5 % Normal 0.2-2.0 [facility] Comment on above: Performed By: #### C BC ####[facility] Mgrjfpmqdm9281 [place] [phone]. Airam Tripathi EO # 0.5 103/ul Normal 0.0-0.7 [facility] Comment on above: Performed By: #### C BC ####[facility] Dtfepcyxmc7531 [place] [phone]. Airam Tripathi Eosinophils/100 WBC (Bld) 5.2 % Normal 0.9-7.0 [facility] Comment on above: Performed By: #### C BC ####[facility] Seyhnjpqwn546[address] [place], [place] [address]Dr. Airam Tripathi Erythrocyte distribution width (RBC) [Ratio] 14.3 % Normal 11.0-15.0 [facility] Comment on above: Performed By: #### C BC ####[facility] Cvvemygwnd605[address] [place], [place] [address]Dr. Airam Tripathi Hematocrit (Bld) [Volume fraction] 31.4 % Critically low 36.0-48.0 [facility] Comment on above: Performed By: #### C BC ####[facility] Wgbvejoysx997[address] [place], [place] [address]Dr. Airam Tripathi Hemoglobin (Bld) [Mass/Vol] 9.5 g/dL Critically low 12.0-16.0 [facility] Comment on above: Performed By: #### C BC ####[facility] Fvyonydzrv6494[address] [place], [place] [address]Dr. Airam Tripathi IG # 0.05 10e3/ul Critically high 0.00-0.03 [facility] Comment on above: Performed By: #### C BC ####[facility] Roblmsngvp8737[address] [place], [place] [address]Dr. Airam Tripathi IG % 0.6 % Critically high 0.0-0.5 [facility] Comment on above: Performed By: #### C BC ####[facility] Zyerrveqtl6097[address] [place], [place] [address]Dr. Airam Tripathi LYMPH # 1.5 103/ul Normal 1.2-3.8 [facility] Comment on above: Performed By: #### C BC ####[facility] Lubrbayywt3396 [place] [id number]. Airam Tripathi Lymphocytes/100 WBC (Bld) 17.6 % Critically low 20.5-60.0 [facility] Comment on above: Performed By: #### C BC ####[facility] Ktcrndocrk6536 [place] [phone]. Airam Deuce MANUAL DIFF REQ NO Normal [facility] Comment on above: Performed By: #### C BC ####[facility] Hroonhzpky[address] [place], [place] [address]Dr. Airam Deuce MCH (RBC) [Entitic mass] 29.0 pg Normal 26.7-34.0 [facility] Comment on above: Performed By: #### C BC ####[facility] Eohrjvvzqo8414[address] [place], [place] [address]Dr. Airam Deuce MCHC (RBC) [Mass/Vol] 30.3 g/dL Normal 29.9-35.2 [facility] Comment on above: Performed By: #### C BC ####[facility] Xcmhdnephg9585[address] [place], [place] [address]Dr. Airam Deuce MCV (RBC) [Entitic vol] 95.7 fL Normal 81.0-99.0 [facility] Comment on above: Performed By: #### C BC ####[facility] Xpiwhlxbgp385[address] [place], [place] [address]Dr. Airma Deuce MONO # 0.7 103/ul Normal 0.3-0.8 [facility] Comment on above: Performed By: #### C BC ####[facility] Ejjikjwgec4723[address] [place], [place] [address]Dr. Airam Deuce Monocytes/100 WBC (Bld) 8.5 % Normal 1.7-12.0 [facility] Comment on above: Performed By: #### C BC ####[facility] Pqmqhfdzfp576[address] [place], [place] [address]Dr. Airam Tripathi NEUT # 5.8 103/ul Normal 1.4-6.5 [facility] Comment on above: Performed By: #### C BC ####[facility] Wroptzddlg[address] [place] [id number]. Airam Tripathi Neutrophils/100 WBC (Bld) 67.6 % Normal 43.0-75.0 [facility] Comment on above: Performed By: #### C BC ####[facility] Ujbgbgevle9686 [place] [phone]. Airam Tripathi Platelet mean volume (Bld) [Entitic vol] 9.5 fL Normal 9.5-13.5 [facility] Comment on above: Performed By: #### C BC ####[facility] Zsdwekmdey2839 [place] [address]Dr. Airam Tripathi PLT 292 103/ul Normal 150-450 [facility] Comment on above: Performed By: #### C BC ####[facility] Mlbmwtpwrl1829 [place] [address]Dr. Airam Tripathi RBC 3.28 106/ul Critically low 4.20-5.40 [facility] Comment on above: Performed By: #### C BC ####[facility] Jgmlujimnk6754[address] [place], [place] [address]Dr. Airam Tripathi WBC 8.6 103/ul Normal 4.0-11.0 [facility] Comment on above: Performed By: #### C BC ####[facility] Jaidvhjdlp2035 [place] [address]Dr. Airam Tripathi PROF 14(COMP METB)on 023 Albumin [Mass/Vol] 3.0 g/dL Critically low 3.4-5.0 [facility] Comment on above: Performed By: #### C MP ####[facility] Votcojtilr232[address] [place], [place] [address]Dr. Airam Tripathi Albumin/Globulin [Mass ratio] 0.9 {ratio} Normal [facility] Comment on above: Performed By: #### C MP ####[facility] Wblufsyrme4785 [place] [address]Dr. Airam Tripathi ALP [Catalytic activity/Vol] 184 U/L Critically high 46-116 [facility] Comment on above: Performed By: #### C MP ####[facility] Tpiricgcbs8930 [place] [phone]. Airam Tripathi ALT [Catalytic activity/Vol] 18 U/L Normal 14-59 [facility] Comment on above: Performed By: #### C MP ####[facility] Voxylvhquk5490 [place] [phone]. Airam Tripathi Anion gap [Moles/Vol] 11.2 mmol/L Normal [facility] Comment on above: Performed By: #### C MP ####[facility] Goynltodma[address] [place], [place] [address]Dr. Airam Tripathi AST [Catalytic activity/Vol] 19 U/L Normal 15-37 [facility] Comment on above: Performed By: #### C MP ####[facility] Muhlynyqhl6575[address] [place], [place] [address]Dr. Airam Tripathi Bilirubin [Mass/Vol] 0.3 mg/dL Normal 0.2-1.0 [facility] Comment on above: Performed By: #### C MP ####[facility] Vnwywpbolu44[address] [place], [place] [address]Dr. Airam Tripathi Calcium [Mass/Vol] 8.8 mg/dL Normal 8.5-10.1 [facility] Comment on above: Performed By: #### C MP ####[facility] Pxtxakltuo[address] [place], [place] [address]Dr. Airam Tripathi Chloride [Moles/Vol] 101 mmol/L Normal 98-107 [facility] Comment on above: Performed By: #### C MP ####[facility] Perxtyvnwj0940[address] [place], [place] [address]Dr. Airam Tripathi CO2 [Moles/Vol] 25.4 mmol/L Normal 21.0-32.0 [facility] Comment on above: Performed By: #### C MP ####[facility] Uvvoeramvn4[address] [place], [place] [address]Dr. Airam Tripathi Creatinine [Mass/Vol] 1.05 mg/dL Critically high 0.55-1.02 [facility] Comment on above: Performed By: #### C MP ####[facility] Wbwfhjoagt7988 [place] [id number]. Airam Tripathi EGFR-AF LUXEMBOURGER >60 Normal >=60 [facility] Comment on above: Performed By: #### C MP ####[facility] Sbdthkjblq7476 [place] [phone]. Airam Tripathi EGFR-NON AF LUXEMBOURGER 53 mL/min/1.73m2 Critically low >=60 [facility] Comment on above: Performed By: #### C MP ####[facility] Yipknwpoqb9584 [place] [phone]. Airam Tripathi Globulin (S) [Mass/Vol] 3.4 g/dL Normal [facility] Comment on above: Performed By: #### C MP ####[facility] Cgalwjqevn10[address] [place] [address]Dr. Airam Tripathi Glucose [Mass/Vol] 78 mg/dL Normal 74-106 [facility] Comment on above: Performed By: #### C MP ####[facility] Iwocsdqxzj14[address] [place] [address]Dr. Airam Tripathi Potassium [Moles/Vol] 4.6 mmol/L Normal 3.5-5.1 [facility] Comment on above: Performed By: #### C MP ####[facility] Ryrbnfwnnx[address] [place], [place] [address]Dr. Airam Tripathi Protein [Mass/Vol] 6.4 g/dL Normal 6.4-8.2 [facility] Comment on above: Performed By: #### C MP ####[facility] M[address]fhejosm[address] [place] [address]Dr. Airam Tripathi Sodium [Moles/Vol] 133 mmol/L Critically low 136-145 [facility] Comment on above: Performed By: #### C MP ####[facility] Xcqhmbtlml47[address] [place] [address]Dr. Airam Tripathi Urea nitrogen [Mass/Vol] 26.0 mg/dL Critically high 7.0-18.0 [facility] Comment on above: Performed By: #### C MP ####[facility] Myvyjquwaf8[address] [place] [address]Dr. Airam Tripathi Urea nitrogen/Creatinine [Mass ratio] 24.8 mg/mg Normal [facility] Comment on above: Performed By: #### C MP ####[facility] Xfevhbtxdc075[address] [place], [place] [address]Dr. Airam Tripathi OSMOLALITYon 07-29-2022 Osmolality [Osmolality] 287 mosm/kg Normal 275-295 [facility] Comment on above: Performed By: #### O SMO ####[facility] Xtjtfnegol9337[address] [place], [place] [address]Dr. Airam Tripathi CBC AUTO DIFFon 07-27-2022 BASO # 0.0 103/ul Normal 0.0-0.1 [facility] Comment on above: Performed By: #### C BC ####[facility] Gvjjpqpdmx578[address] [place], [place] [address]Dr. Airam Deuce Basophils/100 WBC (Bld) 0.4 % Normal 0.2-2.0 [facility] Comment on above: Performed By: #### C BC ####[facility] Pkkpnktzis[address] [place], [place] [address]Dr. Airam Tripathi EO # 0.2 103/ul Normal 0.0-0.7 [facility] Comment on above: Performed By: #### C BC ####[facility] Lxghwidhac165[address] [place], [place] [address]Dr. Airam Tripathi Eosinophils/100 WBC (Bld) 2.6 % Normal 0.9-7.0 [facility] Comment on above: Performed By: #### C BC ####[facility] Onznzqtwig804[address] [place], [place] [address]Dr. Airam Tripathi Erythrocyte distribution width (RBC) [Ratio] 14.2 % Normal 11.0-15.0 [facility] Comment on above: Performed By: #### C BC ####[facility] Ittxejxlep016[address] [place], [place] [address]Dr. Airam Tripathi Hematocrit (Bld) [Volume fraction] 31.3 % Critically low 36.0-48.0 [facility] Comment on above: Performed By: #### C BC ####[facility] Hp[address]alipgx24[address] [place] [address]Dr. Airam Tripathi Hemoglobin (Bld) [Mass/Vol] 9.3 g/dL Critically low 12.0-16.0 [facility] Comment on above: Performed By: #### C BC ####[facility] Smyypgsbgd44[address] [place] [address]Dr. Airam Tripathi IG # 0.05 10e3/ul Critically high 0.00-0.03 [facility] Comment on above: Performed By: #### C BC ####[facility] Bbikdjuvxd8775 [place] [address]Dr. Airam Tripathi IG % 0.7 % Critically high 0.0-0.5 [facility] Comment on above: Performed By: #### C BC ####[facility] Njrhnksjil274[address] [place], [place] [address]Dr. Airam Tripathi LYMPH # 1.0 103/ul Critically low 1.2-3.8 [facility] Comment on above: Performed By: #### C BC ####[facility] Rjvdatgpfy1219 [place] [address]Dr. Airam Tripathi Lymphocytes/100 WBC (Bld) 13.4 % Critically low 20.5-60.0 [facility] Comment on above: Performed By: #### C BC ####[facility] Glqujncofx1126 [place] [address]Dr. Airam Tripathi MANUAL DIFF REQ NO Normal [facility] Comment on above: Performed By: #### C BC ####[facility] Uyljemamqf364[address] [place], [place] [address]Dr. Airam Tripathi MCH (RBC) [Entitic mass] 28.8 pg Normal 26.7-34.0 [facility] Comment on above: Performed By: #### C BC ####[facility] Aqnojaubbe0677[address] [place], [place] [address]Dr. Airam Tripathi MCHC (RBC) [Mass/Vol] 29.7 g/dL Critically low 29.9-35.2 [facility] Comment on above: Performed By: #### C BC ####[facility] Bxdebjufes7647 [place] [id number]. Airam Tripathi MCV (RBC) [Entitic vol] 96.9 fL Normal 81.0-99.0 [facility] Comment on above: Performed By: #### C BC ####[facility] Thhjiytrfp5975 [place] [id number]. Airam Tripathi MONO # 0.5 103/ul Normal 0.3-0.8 [facility] Comment on above: Performed By: #### C BC ####[facility] Vxgnlcbgyr1936[address] [place], [place] [address]Dr. Airam Tripathi Monocytes/100 WBC (Bld) 6.3 % Normal 1.7-12.0 [facility] Comment on above: Performed By: #### C BC ####[facility] Rljdoljidf144[address] [place], [place] [address]Dr. Airam Tripathi NEUT # 5.8 103/ul Normal 1.4-6.5 [facility] Comment on above: Performed By: #### C BC ####[facility] Ilayoqmaun355[address] [place], [place] [address]Dr. Airam Tripathi Neutrophils/100 WBC (Bld) 76.6 % Critically high 43.0-75.0 [facility] Comment on above: Performed By: #### C BC ####[facility] Wcjpcjmgyw826[address] [place], [place] [address]Dr. Airam Tripathi Platelet mean volume (Bld) [Entitic vol] 10.3 fL Normal 9.5-13.5 [facility] Comment on above: Performed By: #### C BC ####[facility] Hpzzlpugjj5[address] [place], [place] [address]Dr. Airam Tripathi PLT 265 103/ul Normal 150-450 [facility] Comment on above: Performed By: #### C BC ####[facility] Jzbvzopxdo9[address] [place], [place] [address]Dr. Airam Tripathi RBC 3.23 106/ul Critically low 4.20-5.40 [facility] Comment on above: Performed By: #### C BC ####[facility] Wuqwccbmhj29[address] [place] [address]Dr. Airam Tripathi WBC 7.6 103/ul Normal 4.0-11.0 [facility] Comment on above: Performed By: #### C BC ####[facility] Xsfoxkxmpw4545 [place] [address]Dr. Airam Tripathi PROF 14(COMP METB)on 023 Albumin [Mass/Vol] 2.9 g/dL Critically low 3.4-5.0 [facility] Comment on above: Performed By: #### C MP ####[facility] Acgsqrtzal0545 [place] [address]Dr. Airam Tripathi Albumin/Globulin [Mass ratio] 0.8 {ratio} Normal [facility] Comment on above: Performed By: #### C MP ####[facility] Jnvseovjif7112[address] [place], [place] [address]Dr. Airam Tripathi ALP [Catalytic activity/Vol] 175 U/L Critically high 46-116 [facility] Comment on above: Performed By: #### C MP ####[facility] Dxwwmgfybt6470 [place] [address]Dr. Airam Tripathi ALT [Catalytic activity/Vol] 24 U/L Normal 14-59 [facility] Comment on above: Performed By: #### C MP ####[facility] Gvelxvqxsx1047 [place] [address]Dr. Airam Tripathi Anion gap [Moles/Vol] 14.3 mmol/L Normal [facility] Comment on above: Performed By: #### C MP ####[facility] Ohhjqdzrwq9017 [place] [address]Dr. Airam Tripathi AST [Catalytic activity/Vol] 25 U/L Normal 15-37 [facility] Comment on above: Performed By: #### C MP ####[facility] Cmptoxvglt0287 [place] [address]Dr. Airam Tripathi Bilirubin [Mass/Vol] 0.2 mg/dL Normal 0.2-1.0 [facility] Comment on above: Performed By: #### C MP ####[facility] Rkzlqldbzr53[address] [place] [id number]. Airam Tripathi Calcium [Mass/Vol] 8.6 mg/dL Normal 8.5-10.1 [facility] Comment on above: Performed By: #### C MP ####[facility] Ghbkdrpnmr5667 [place] [id number]. Airam Tripathi Chloride [Moles/Vol] 102 mmol/L Normal 98-107 [facility] Comment on above: Performed By: #### C MP ####[facility] Yeqpckrzje9414 [place] [id number]. Airam Tripathi CO2 [Moles/Vol] 23.7 mmol/L Normal 21.0-32.0 [facility] Comment on above: Performed By: #### C MP ####[facility] Wjqlcyandg3380[address] [place], [place] [address]Dr. Airam Tripathi Creatinine [Mass/Vol] 1.29 mg/dL Critically high 0.55-1.02 [facility] Comment on above: Performed By: #### C MP ####[facility] Tdkvadupvs866[address] [place], [place] [address]Dr. Airam Tripathi EGFR-AF LUXEMBOURGER 51 mL/min/1.73m2 Critically low >=60 [facility] Comment on above: Performed By: #### C MP ####[facility] Tlghhjxapx7970[address] [place], [place] [address]Dr. Airam Tripathi EGFR-NON AF LUXEMBOURGER 42 mL/min/1.73m2 Critically low >=60 [facility] Comment on above: Performed By: #### C MP ####[facility] Kkvdegkunj833[address] [place], [place] [address]Dr. Airam Tripathi Globulin (S) [Mass/Vol] 3.6 g/dL Normal [facility] Comment on above: Performed By: #### C MP ####[facility] Gqnhnjzlru6274[address] [place], [place] [address]Dr. Airam Tripathi Glucose [Mass/Vol] 84 mg/dL Normal 74-106 [facility] Comment on above: Performed By: #### C MP ####[facility] Gcfbwuverd3120 [place] [address]Dr. Airam Tripathi Potassium [Moles/Vol] 5.0 mmol/L Normal 3.5-5.1 [facility] Comment on above: Performed By: #### C MP ####[facility] Gmjfnzxbmk5684[address] [place], [place] [address]Dr. Airam Tripathi Protein [Mass/Vol] 6.5 g/dL Normal 6.4-8.2 [facility] Comment on above: Performed By: #### C MP ####[facility] Ibrkvrdgdf393[address] [place], [place] [address]Dr. Airam Tripathi Sodium [Moles/Vol] 135 mmol/L Critically low 136-145 [facility] Comment on above: Performed By: #### C MP ####[facility] Fcpeujejcj903[address] [place], [place] [address]Dr. Airam Tripathi Urea nitrogen [Mass/Vol] 28.0 mg/dL Critically high 7.0-18.0 [facility] Comment on above: Performed By: #### C MP ####[facility] Sjkasklqqx4468[address] [place], [place] [address]Dr. Airam Tripathi Urea nitrogen/Creatinine [Mass ratio] 21.7 mg/mg Normal [facility] Comment on above: Performed By: #### C MP ####[facility] Nfmwizrrdn0230[address] [place], [place] [address]Dr. Airam Tripathi XR LSPINE MIN 4 VIEWSon 02-0 XR LSPINE MIN 4 VIEWS Normal [facility] OSMOLALITYon 07-24-2022 Osmolality [Osmolality] 279 mosm/kg Normal 275-295 [facility] Comment on above: Performed By: #### O SMO ####[facility] Mrrngdhwsr6807[address] [place], [place] [address]Dr. Airam Tripathi CBC AUTO DIFFon 07-21-2022 BASO # 0.0 103/ul Normal 0.0-0.1 [facility] Comment on above: Performed By: #### C BC ####[facility] Sgtbckfstz7036[address] [place], [place] [address]Dr. Airam Tripathi Basophils/100 WBC (Bld) 0.4 % Normal 0.2-2.0 [facility] Comment on above: Performed By: #### C BC ####[facility] Ifxuqftget205[address] [place], [place] [address]Dr. Airam Tripathi EO # 0.2 103/ul Normal 0.0-0.7 [facility] Comment on above: Performed By: #### C BC ####[facility] Utmxsawfms5085[address] [place], [place] [address]Dr. Airam Tripathi Eosinophils/100 WBC (Bld) 2.3 % Normal 0.9-7.0 [facility] Comment on above: Performed By: #### C BC ####[facility] Endfpqukiy9135[address] [place], [place] [address]Dr. Airam Tripathi Erythrocyte distribution width (RBC) [Ratio] 13.6 % Normal 11.0-15.0 [facility] Comment on above: Performed By: #### C BC ####[facility] Nhtxduqpmu930[address] [place], [place] [address]Dr. Airam Tripathi Hematocrit (Bld) [Volume fraction] 32.6 % Critically low 36.0-48.0 [facility] Comment on above: Performed By: #### C BC ####[facility] Gjwctzebhh924[address] [place], [place] [address]Dr. Airam Tripathi Hemoglobin (Bld) [Mass/Vol] 9.5 g/dL Critically low 12.0-16.0 [facility] Comment on above: Performed By: #### C BC ####[facility] Hddfwhsqry1832[address] [place], [place] [address]Dr. Selenaneil Deuce IG # 0.03 10e3/ul Normal 0.00-0.03 [facility] Comment on above: Performed By: #### C BC ####[facility] Bfxqqbwccu412[address] [place], [place] [address]Dr. Airam Deuce IG % 0.4 % Normal 0.0-0.5 [facility] Comment on above: Performed By: #### C BC ####[facility] Gupdsgafam389[address] [place], [place] [address]Dr. Airam Tripathi LYMPH # 1.4 103/ul Normal 1.2-3.8 [facility] Comment on above: Performed By: #### C BC ####[facility] Agbicvawpi0327 [place] [address]DrKianna Tripathi Lymphocytes/100 WBC (Bld) 18.2 % Critically low 20.5-60.0 [facility] Comment on above: Performed By: #### C BC ####[facility] Digxfxykeh3328 [place] [address]DrKianna Tripathi MANUAL DIFF REQ NO Normal [facility] Comment on above: Performed By: #### C BC ####[facility] Ttryaktaei5650 [place] [address]Dr. Airam Tripathi MCH (RBC) [Entitic mass] 29.5 pg Normal 26.7-34.0 [facility] Comment on above: Performed By: #### C BC ####[facility] Xfmbvnbqrr0495[address] [place], [place] [address]DrKianna Tripathi MCHC (RBC) [Mass/Vol] 29.1 g/dL Critically low 29.9-35.2 [facility] Comment on above: Performed By: #### C BC ####[facility] Pekprztbdq954[address] [place], [place] [address]DrKianna Tripathi MCV (RBC) [Entitic vol] 101.2 fL Critically high 81.0-99.0 [facility] Comment on above: Performed By: #### C BC ####[facility] Qmxcnyoxoo9900[address] [place], [place] [address]DrKianna Tripathi MONO # 0.6 103/ul Normal 0.3-0.8 [facility] Comment on above: Performed By: #### C BC ####[facility] Ooskquxqny07299[address] [place], [place] [address]DrKianna Tripathi Monocytes/100 WBC (Bld) 7.9 % Normal 1.7-12.0 [facility] Comment on above: Performed By: #### C BC ####[facility] Mjhapyjoms5340[address] [place], [place] [address]DrKianna Tripathi NEUT # 5.5 103/ul Normal 1.4-6.5 [facility] Comment on above: Performed By: #### C BC ####[facility] Cutswxhasl2057 [place] [address]DrKianna Tripathi Neutrophils/100 WBC (Bld) 70.8 % Normal 43.0-75.0 [facility] Comment on above: Performed By: #### C BC ####[facility] Fvquxxscmx2837[address] [place], [place] [address]DrKianna Tripathi Platelet mean volume (Bld) [Entitic vol] 9.6 fL Normal 9.5-13.5 [facility] Comment on above: Performed By: #### C BC ####[facility] Punxjniwuw3401[address] [place], [place] [address]DrKianna Tripathi PLT 265 103/ul Normal 150-450 [facility] Comment on above: Performed By: #### C BC ####[facility] Xztfhxkdck1694[address] [place], [place] [address]DrKianna Tripathi RBC 3.22 106/ul Critically low 4.20-5.40 [facility] Comment on above: Performed By: #### C BC ####[facility] Kbdnfprmsy764[address] [place], [place] [address]DrKianna Tripathi WBC 7.8 103/ul Normal 4.0-11.0 [facility] Comment on above: Performed By: #### C BC ####[facility] Lmeotbzyzs484[address] [place], [place] [address]Dr. Airam Tripathi PROF 14(COMP METB)on 023 Albumin [Mass/Vol] 2.9 g/dL Critically low 3.4-5.0 [facility] Comment on above: Performed By: #### C MP ####[facility] Fgwkzbxfba339[address] [place], [place] [address]DrKianna Tripathi Albumin/Globulin [Mass ratio] 0.9 {ratio} Normal [facility] Comment on above: Performed By: #### C MP ####[facility] Dmgctsfzdj817[address] [place], [place] [address]Dr. Alegria Tripathi ALP [Catalytic activity/Vol] 176 U/L Critically high 46-116 [facility] Comment on above: Performed By: #### C MP ####[facility] Vzaexpgtty9682 [place] [address]Dr. Airam Tripathi ALT [Catalytic activity/Vol] 19 U/L Normal 14-59 [facility] Comment on above: Performed By: #### C MP ####[facility] Cqzuexqmpe8174 [place] [address]Dr. Airam Deuce Anion gap [Moles/Vol] 12.6 mmol/L Normal Th e [facility] Comment on above: Performed By: #### C MP ####[facility] Szmrnqbzom3275[address] [place], [place] [address]Dr. Airam Deuce AST [Catalytic activity/Vol] 25 U/L Normal 15-37 [facility] Comment on above: Performed By: #### C MP ####[facility] Xhcrmuhdfa5018[address] [place], [place] [address]Dr. Airam Deuce Bilirubin [Mass/Vol] 0.2 mg/dL Normal 0.2-1.0 [facility] Comment on above: Performed By: #### C MP ####[facility] Phitouhnwc9278[address] [place], [place] [address]Dr. Airam Deuce Calcium [Mass/Vol] 8.5 mg/dL Normal 8.5-10.1 [facility] Comment on above: Performed By: #### C MP ####[facility] Nronsrdhlm8247[address] [place], [place] [address]Dr. Airam Deuce Chloride [Moles/Vol] 101 mmol/L Normal 98-107 [facility] Comment on above: Performed By: #### C MP ####[facility] Ncteuhphvw2423[address] [place], [place] [address]Dr. Airam Deuce CO2 [Moles/Vol] 25.9 mmol/L Normal 21.0-32.0 [facility] Comment on above: Performed By: #### C MP ####[facility] Xxvmrrpenc048[address] [place], [place] [address]Dr. Airam Deuce Creatinine [Mass/Vol] 1.11 mg/dL Critically high 0.55-1.02 [facility] Comment on above: Performed By: #### C MP ####[facility] Ekeqzstvpx13[address] [place] [address]Dr. Airam Tripathi EGFR-AF LUXEMBOURGER >60 Normal >=60 [facility] Comment on above: Performed By: #### C MP ####[facility] Xzfzbkhkzy7875 [place] [address]Dr. Airam Deuce EGFR-NON AF LUXEMBOURGER 50 mL/min/1.73m2 Critically low >=60 [facility] Comment on above: Performed By: #### C MP ####[facility] Rqrmjuzgik9878[address] [place], [place] [address]Dr. Airam Deuce Globulin (S) [Mass/Vol] 3.2 g/dL Normal [facility] Comment on above: Performed By: #### C MP ####[facility] Idtfzxyvkg533[address] [place], [place] [address]Dr. Airam Tripathi Glucose [Mass/Vol] 80 mg/dL Normal 74-106 [facility] Comment on above: Performed By: #### C MP ####[facility] Sxlwhexamm5110[address] [place], [place] [address]Dr. Airam Deuce Potassium [Moles/Vol] 3.5 mmol/L Normal 3.5-5.1 [facility] Comment on above: Performed By: #### C MP ####[facility] Jfrvjoyvew6947[address] [place], [place] [address]Dr. Selenaneil Deuce Protein [Mass/Vol] 6.1 g/dL Critically low 6.4-8.2 Th [facility] Comment on above: Performed By: #### C MP ####[facility] Deqaocalma596[address] [place], [place] [address]Dr. Airam Tripathi Sodium [Moles/Vol] 136 mmol/L Normal 136-145 [facility] Comment on above: Performed By: #### C MP ####[facility] Eutdhlcotk6732[address] [place], [place] [address]Dr. Airam Tripathi Urea nitrogen [Mass/Vol] 31.0 mg/dL Critically high 7.0-18.0 [facility] Comment on above: Performed By: #### C MP ####[facility] Znkhbmprlt496[address] [place], [place] [address]Dr. Airam Tripathi Urea nitrogen/Creatinine [Mass ratio] 27.9 mg/mg Normal [facility] Comment on above: Performed By: #### C MP ####[facility] Lflxjcyexa027[address] [place], [place] [address]DrKianna Tripathi OSMOLALITYon 07-19-2022 Osmolality [Osmolality] 285 mosm/kg Normal 275-295 [facility] Comment on above: Performed By: #### O SMO ####[facility] Hnphzrwlqq4010[address] [place], [place] [address]Dr. Airam Tripathi CBC AUTO DIFFon 07-15-2022 BASO # 0.0 103/ul Normal 0.0-0.1 [facility] Comment on above: Performed By: #### C BC ####[facility] Okeikowzpl875[address] [place], [place] [address]DrKianna Tripathi Basophils/100 WBC (Bld) 0.2 % Normal 0.2-2.0 [facility] Comment on above: Performed By: #### C BC ####[facility] Cduosfsyff6130[address] [place], [place] [address]DrKianna Tripathi EO # 0.1 103/ul Normal 0.0-0.7 [facility] Comment on above: Performed By: #### C BC ####[facility] Homtqioymd7845[address] [place], [place] [address]DrKianna Tripathi Eosinophils/100 WBC (Bld) 1.4 % Normal 0.9-7.0 [facility] Comment on above: Performed By: #### C BC ####[facility] Awvhgdskzy419[address] [place], [place] [address]DrKianna Tripathi Erythrocyte distribution width (RBC) [Ratio] 13.0 % Normal 11.0-15.0 [facility] Comment on above: Performed By: #### C BC ####[facility] Mxacrwisbh5274[address] [place], [place] [address]Dr. Airam Tripathi Hematocrit (Bld) [Volume fraction] 29.3 % Critically low 36.0-48.0 [facility] Comment on above: Performed By: #### C BC ####[facility] Yhbewsmmit3[address] [place] [address]Dr. Selenaneil Deuce Hemoglobin (Bld) [Mass/Vol] 10.3 g/dL Critically low 12.0-16.0 [facility] Comment on above: Performed By: #### C BC ####[facility] Zlbnfbrxet6214[address] [place], [place] [address]Dr. Airam Tripathi IG # 0.05 10e3/ul Critically high 0.00-0.03 [facility] Comment on above: Performed By: #### C BC ####[facility] Impblyhzii984[address] [place], [place] [address]Dr. Airam Tripathi IG % 0.6 % Critically high 0.0-0.5 [facility] Comment on above: Performed By: #### C BC ####[facility] Wdhunfdvlh266[address] [place], [place] [address]Dr. Airam Tripathi LYMPH # 0.9 103/ul Critically low 1.2-3.8 [facility] Comment on above: Performed By: #### C BC ####[facility] Iidpenrdyb56[address] [place], [place] [address]Dr. Airam Tripathi Lymphocytes/100 WBC (Bld) 10.6 % Critically low 20.5-60.0 [facility] Comment on above: Performed By: #### C BC ####[facility] Fsrmjybykb7[address] [place], [place] [address]Dr. Airam Tripathi MANUAL DIFF REQ NO Normal [facility] [facility] Comment on above: Performed By: #### C BC ####[facility] Egudzewcit[address] [place], [place] [address]Dr. Airam Tripathi MCH (RBC) [Entitic mass] 29.3 pg Normal 26.7-34.0 [facility] Comment on above: Performed By: #### C BC ####[facility] Abqyaywwvo[address] [place], [place] [address]Dr. Airam Tripathi MCHC (RBC) [Mass/Vol] 35.2 g/dL Normal 29.9-35.2 [facility] Comment on above: Performed By: #### C BC ####[facility] J[address]fx[address] [place] [address]DrKianna Airam Deuce MCV (RBC) [Entitic vol] 83.5 fL Normal 81.0-99.0 [facility] Comment on above: Performed By: #### C BC ####[facility] Ogjyhqcgng[address] [place], [place] [address]DrKianna Tripathi MONO # 0.5 103/ul Normal 0.3-0.8 [facility] Comment on above: Performed By: #### C BC ####[facility] Qcdeaxoves7844[address] [place], [place] [address]DrKianna Tripathi Monocytes/100 WBC (Bld) 5.1 % Normal 1.7-12.0 [facility] Comment on above: Performed By: #### C BC ####[facility] Ubkpkbnbua88[address] [place], [place] [address]DrKianna Tripathi NEUT # 7.3 103/ul Critically high 1.4-6.5 [facility] Comment on above: Performed By: #### C BC ####[facility] Lbzntswbtn8[address] [place], [place] [address]DrKianna Tripathi Neutrophils/100 WBC (Bld) 82.1 % Critically high 43.0-75.0 [facility] Comment on above: Performed By: #### C BC ####[facility] Egpjwpwdli4414[address] [place], [place] [address]DrKianna Tripathi Platelet mean volume (Bld) [Entitic vol] 8.9 fL Critically low 9.5-13.5 [facility] Comment on above: Performed By: #### C BC ####[facility] Dtqrlgiqbr5457[address] [place], [place] [address]DrKianna Tripathi PLT 290 103/ul Normal 150-450 [facility] Comment on above: Performed By: #### C BC ####[facility] Syycvqrnjs3060[address] [place], [place] [address]DrKianna Tripathi RBC 3.51 106/ul Critically low 4.20-5.40 [facility] Comment on above: Performed By: #### C BC ####[facility] Gxdkcponsx[address] [place] [address]Dr. Airam Tripathi WBC 8.9 103/ul Normal 4.0-11.0 [facility] Comment on above: Performed By: #### C BC ####[facility] Wofhfgcjro7247[address] [place], [place] [address]DrKianna Tripathi PROF 14(COMP METB)on 023 Albumin [Mass/Vol] 3.2 g/dL Critically low 3.4-5.0 [facility] Comment on above: Performed By: #### C MP ####[facility] Shdurkfoka9732[address] [place], [place] [address]DrKianna Tripathi Albumin/Globulin [Mass ratio] 0.9 {ratio} Normal [facility] Comment on above: Performed By: #### C MP ####[facility] Dqtdzfiake033[address] [place], [place] [address]DrKianna Tripathi ALP [Catalytic activity/Vol] 194 U/L Critically high 46-116 [facility] Comment on above: Performed By: #### C MP ####[facility] Mzocneociv1735[address] [place], [place] [address]DrKianna Tripathi ALT [Catalytic activity/Vol] 19 U/L Normal 14-59 [facility] Comment on above: Performed By: #### C MP ####[facility] Ionbmsrdns2408[address] [place], [place] [address]DrKianna Tripathi Anion gap [Moles/Vol] 11.3 mmol/L Normal Th [facility] Comment on above: Performed By: #### C MP ####[facility] Parrqwhlhf1927[address] [place], [place] [address]DrKianna Tripathi AST [Catalytic activity/Vol] 24 U/L Normal 15-37 [facility] Comment on above: Performed By: #### C MP ####[facility] Jljzielrzq[address] [place], [place] [address]DrKianna Tripathi Bilirubin [Mass/Vol] 0.2 mg/dL Normal 0.2-1.0 [facility] Comment on above: Performed By: #### C MP ####[facility] Oludoxctuk712[address] [place], [place] [address]Dr. Airam Deuce Calcium [Mass/Vol] 8.7 mg/dL Normal 8.5-10.1 [facility] Comment on above: Performed By: #### C MP ####[facility] Xtbzbtimzl2758[address] [place], [place] [address]Dr. Airam Tripathi Chloride [Moles/Vol] 101 mmol/L Normal 98-107 [facility] Comment on above: Performed By: #### C MP ####[facility] Zbfnkvqcyi7975[address] [place], [place] [address]Dr. Selenaneil Deuce CO2 [Moles/Vol] 27.2 mmol/L Normal 21.0-32.0 [facility] Comment on above: Performed By: #### C MP ####[facility] Qdopqfqwsf295[address] [place], [place] [address]Dr. Airam Tripathi Creatinine [Mass/Vol] 1.17 mg/dL Critically high 0.55-1.02 [facility] Comment on above: Performed By: #### C MP ####[facility] Mfpzhntgmo8364[address] [place], [place] [address]Dr. Airam Tripathi EGFR-AF LUXEMBOURGER 57 mL/min/1.73m2 Critically low >=60 [facility] Comment on above: Performed By: #### C MP ####[facility] Fisbxykila958[address] [place], [place] [address]Dr. Airam Tripathi EGFR-NON AF LUXEMBOURGER 47 mL/min/1.73m2 Critically low >=60 [facility] Comment on above: Performed By: #### C MP ####[facility] Pthkuopsho367[address] [place], [place] [address]Dr. Airam Tripathi Globulin (S) [Mass/Vol] 3.5 g/dL Normal [facility] Comment on above: Performed By: #### C MP ####[facility] Qewtclemho488[address] [place], [place] [address]Dr. Airam Tripathi Glucose [Mass/Vol] 86 mg/dL Normal 74-106 [facility] Comment on above: Performed By: #### C MP ####[facility] Ztuacdwwqw60[address] [place] [address]Dr. Selenaneil Deuce Potassium [Moles/Vol] 5.5 mmol/L Critically high 3.5-5.1 [facility] Comment on above: Performed By: #### C MP ####[facility] Kvogsvnwko374[address] [place], [place] [address]Dr. Selenaneil Deuce Protein [Mass/Vol] 6.7 g/dL Normal 6.4-8.2 [facility] Comment on above: Performed By: #### C MP ####[facility] Eepurbajrc3170[address] [place], [place] [address]Dr. Airam Tripathi Sodium [Moles/Vol] 134 mmol/L Critically low 136-145 Th [facility] Comment on above: Performed By: #### C MP ####[facility] Bhyrofdhtk666[address] [place], [place] [address]Dr. Airam Tripathi Urea nitrogen [Mass/Vol] 26.0 mg/dL Critically high 7.0-18.0 [facility] Comment on above: Performed By: #### C MP ####[facility] Thaeirgnma044[address] [place], [place] [address]Dr. Airam Tripathi Urea nitrogen/Creatinine [Mass ratio] 22.2 mg/mg Normal [facility] Comment on above: Performed By: #### C MP ####[facility] Kkrelyqdfp8315[address] [place], [place] [address]Dr. Airam Tripathi OSMOLALITYon 07-08-2022 Osmolality [Osmolality] 273 mosm/kg Critically low 275-295 [facility] Comment on above: Performed By: #### O SMO ####[facility] Xyidqxbfyw6780[address] [place], [place] [address]Dr. Airam Tripathi CBC AUTO DIFFon 07-07-2022 BASO # 0.0 103/ul Normal 0.0-0.1 [facility] Comment on above: Performed By: #### C BC ####[facility] Mysbgfvsad822[address] [place], [place] [address]Dr. Airam Tripathi Basophils/100 WBC (Bld) 0.4 % Normal 0.2-2.0 [facility] Comment on above: Performed By: #### C BC ####[facility] Mhjcpehdkg5020[address] [place], [place] [address]Dr. Airam Tripathi EO # 0.1 103/ul Normal 0.0-0.7 [facility] Comment on above: Performed By: #### C BC ####[facility] Cgsrnjolsn0024[address] [place], [place] [address]Dr. Airam Tripathi Eosinophils/100 WBC (Bld) 1.6 % Normal 0.9-7.0 [facility] Comment on above: Performed By: #### C BC ####[facility] Iasbkrxfjv528[address] [place], [place] [address]Dr. Airam Tripathi Erythrocyte distribution width (RBC) [Ratio] 13.1 % Normal 11.0-15.0 [facility] Comment on above: Performed By: #### C BC ####[facility] Wvdmdftkox3810[address] [place], [place] [address]Dr. Airam Tripathi Hematocrit (Bld) [Volume fraction] 33.7 % Critically low 36.0-48.0 [facility] Comment on above: Performed By: #### C BC ####[facility] Cwwpsoifvu3601[address] [place], [place] [address]Dr. Airam Tripathi Hemoglobin (Bld) [Mass/Vol] 9.9 g/dL Critically low 12.0-16.0 [facility] Comment on above: Performed By: #### C BC ####[facility] Nqbjjfhfbq2437[address] [place], [place] [address]Dr. Airam Deuce IG # 0.05 10e3/ul Critically high 0.00-0.03 [facility] Comment on above: Performed By: #### C BC ####[facility] Zpmdcmjxfr1087[address] [place], [place] [address]Dr. Airam Tripathi IG % 0.6 % Critically high 0.0-0.5 [facility] Comment on above: Performed By: #### C BC ####[facility] B[address]fekgsg[address] [place] [id number]. Selenaneil Tripathi LYMPH # 1.2 103/ul Normal 1.2-3.8 [facility] Comment on above: Performed By: #### C BC ####[facility] Xerqvmzwwv08[address] [place] [id number]. Selenaneil Tripathi Lymphocytes/100 WBC (Bld) 15.5 % Critically low 20.5-60.0 [facility] Comment on above: Performed By: #### C BC ####[facility] Juegytmpcv[address] [place] [address]Dr. Selenaneil Tripathi MANUAL DIFF REQ NO Normal [facility] Comment on above: Performed By: #### C BC ####[facility] Auqwhgwusd54[address] [place] [address]Dr. Airam Deuce MCH (RBC) [Entitic mass] 28.7 pg Normal 26.7-34.0 [facility] Comment on above: Performed By: #### C BC ####[facility] Rbpdofglps20[address] [place] [address]Dr. Selenaneil Tripathi MCHC (RBC) [Mass/Vol] 29.4 g/dL Critically low 29.9-35.2 [facility] Comment on above: Performed By: #### C BC ####[facility] Adpyyzazca[address] [place] [address]Dr. Airam Tripathi MCV (RBC) [Entitic vol] 97.7 fL Normal 81.0-99.0 [facility] Comment on above: Performed By: #### C BC ####[facility] Tryjtzkamn[address] [place] [address]Dr. Airam Tripathi MONO # 0.6 103/ul Normal 0.3-0.8 [facility] Comment on above: Performed By: #### C BC ####[facility] Kgpxveyxeo910[address] [place], [place] [address]Dr. Airam Tripathi Monocytes/100 WBC (Bld) 7.7 % Normal 1.7-12.0 [facility] Comment on above: Performed By: #### C BC ####[facility] Tnufklarxx6598 [place] [id number]. Airam Tripathi NEUT # 5.9 103/ul Normal 1.4-6.5 [facility] Comment on above: Performed By: #### C BC ####[facility] Nieytihoet[address] [place] [address]Dr. Airam Tripathi Neutrophils/100 WBC (Bld) 74.2 % Normal 43.0-75.0 [facility] Comment on above: Performed By: #### C BC ####[facility] Bsfhpknhoe7[address] [place] [address]Dr. Airam Tripathi Platelet mean volume (Bld) [Entitic vol] 9.4 fL Critically low 9.5-13.5 [facility] Comment on above: Performed By: #### C BC ####[facility] Wovpbjtigp1778[address] [place], [place] [address]Dr. Airam Deuce PLT 331 103/ul Normal 150-450 [facility] Comment on above: Performed By: #### C BC ####[facility] Zsaaujuhrj5623[address] [place], [place] [address]Dr. Airam Deuce RBC 3.45 106/ul Critically low 4.20-5.40 [facility] Comment on above: Performed By: #### C BC ####[facility] Umawmqcqii5528[address] [place], [place] [address]Dr. Airam Tripathi WBC 7.9 103/ul Normal 4.0-11.0 [facility] Comment on above: Performed By: #### C BC ####[facility] Bkpujvkqtd3864[address] [place], [place] [address]Dr. Airam Tripathi PROF 14(COMP METB)on 023 Albumin [Mass/Vol] 3.4 g/dL Normal 3.4-5.0 [facility] Comment on above: Performed By: #### C MP ####[facility] Cwanvysnef2[address] [place] [address]Dr. Airam Tripathi Albumin/Globulin [Mass ratio] 1.1 {ratio} Normal [facility] Comment on above: Performed By: #### C MP ####[facility] Jmluydijqk7[address] [place] [address]Dr. Airam Tripathi ALP [Catalytic activity/Vol] 197 U/L Critically high 46-116 [facility] Comment on above: Performed By: #### C MP ####[facility] Bihoknagxl50[address] [place] [address]Dr. Airam Tripathi ALT [Catalytic activity/Vol] 18 U/L Normal 14-59 [facility] Comment on above: Performed By: #### C MP ####[facility] Mupnmoglyo489[address] [place], [place] [address]Dr. Airam Deuce Anion gap [Moles/Vol] 12.3 mmol/L Normal Th e [facility] Comment on above: Performed By: #### C MP ####[facility] Rruarubtna7238[address] [place], [place] [address]Dr. Airam Deuce AST [Catalytic activity/Vol] 26 U/L Normal 15-37 [facility] Comment on above: Performed By: #### C MP ####[facility] Qaumxltswq2701[address] [place], [place] [address]Dr. Airam Deuce Bilirubin [Mass/Vol] 0.3 mg/dL Normal 0.2-1.0 [facility] Comment on above: Performed By: #### C MP ####[facility] Pyjexsoqrx2687[address] [place], [place] [address]Dr. Airam Deuce Calcium [Mass/Vol] 8.6 mg/dL Normal 8.5-10.1 [facility] Comment on above: Performed By: #### C MP ####[facility] Ayrukhxmji517[address] [place], [place] [address]Dr. Airam Deuce Chloride [Moles/Vol] 96 mmol/L Critically low 98-107 [facility] Comment on above: Performed By: #### C MP ####[facility] Ykllxbicco6924[address] [place], [place] [address]Dr. Selenaneil Deuce CO2 [Moles/Vol] 27.8 mmol/L Normal 21.0-32.0 [facility] Comment on above: Performed By: #### C MP ####[facility] Zkwnvniutt7768[address] [place], [place] [address]Dr. Airam Tripathi Creatinine [Mass/Vol] 1.55 mg/dL Critically high 0.55-1.02 [facility] Comment on above: Performed By: #### C MP ####[facility] Giqvcjezee45[address] [place] [address]Dr. Selenaneil Deuce EGFR-AF LUXEMBOURGER 41 mL/min/1.73m2 Critically low >=60 [facility] Comment on above: Performed By: #### C MP ####[facility] Irqogvslmt2798 [place] [address]Dr. Airam Tripathi EGFR-NON AF LUXEMBOURGER 34 mL/min/1.73m2 Critically low >=60 [facility] Comment on above: Performed By: #### C MP ####[facility] Nbwbmpqfoq4701[address] [place], [place] [address]Dr. Airam Tripathi Globulin (S) [Mass/Vol] 3.2 g/dL Normal [facility] Comment on above: Performed By: #### C MP ####[facility] Ekgwjfnwvc5387[address] [place], [place] [address]Dr. Airam Tripathi Glucose [Mass/Vol] 87 mg/dL Normal 74-106 [facility] Comment on above: Performed By: #### C MP ####[facility] Qlidllpjiw4820[address] [place], [place] [address]Dr. Airam Tripathi Potassium [Moles/Vol] 5.1 mmol/L Normal 3.5-5.1 [facility] Comment on above: Performed By: #### C MP ####[facility] Tpvhdxcatc684[address] [place], [place] [address]Dr. Airam Tripathi Protein [Mass/Vol] 6.6 g/dL Normal 6.4-8.2 [facility] Comment on above: Performed By: #### C MP ####[facility] Qmvqirjyfv3918[address] [place], [place] [address]Dr. Airam Tripathi Sodium [Moles/Vol] 131 mmol/L Critically low 136-145 Th [facility] Comment on above: Performed By: #### C MP ####[facility] Qvxfemukda220[address] [place], [place] [address]Dr. Airam Tripathi Urea nitrogen [Mass/Vol] 31.0 mg/dL Critically high 7.0-18.0 [facility] Comment on above: Performed By: #### C MP ####[facility] Digerdpdss264[address] [place], [place] [address]Dr. Airam Tripathi Urea nitrogen/Creatinine [Mass ratio] 20.0 mg/mg Normal [facility] Comment on above: Performed By: #### C MP ####[facility] Mbsldfdugr859[address] [place], [place] [address]Dr. Airam Tripathi OSMOLALITYon 07-02-2022 Osmolality [Osmolality] 281 mosm/kg Normal 275-295 [facility] Comment on above: Performed By: #### O SMO ####[facility] Tnotqwqgrz033[address] [place], [place] [address]Dr. Airam Tripathi CBC AUTO DIFFon 06-29-2022 BASO # 0.0 103/ul Normal 0.0-0.1 [facility] Comment on above: Performed By: #### C BC ####[facility] Eurmbaksmk766[address] [place], [place] [address]Dr. Airam Tripathi Basophils/100 WBC (Bld) 0.3 % Normal 0.2-2.0 [facility] Comment on above: Performed By: #### C BC ####[facility] Dmabwpwuan4977[address] [place], [place] [address]Dr. Airam Tripathi EO # 0.2 103/ul Normal 0.0-0.7 [facility] Comment on above: Performed By: #### C BC ####[facility] Mfsjssxlzy1355[address] [place], [place] [address]Dr. Airam Tripathi Eosinophils/100 WBC (Bld) 2.3 % Normal 0.9-7.0 [facility] Comment on above: Performed By: #### C BC ####[facility] Kglhsrlkfa0384[address] [place], [place] [address]Dr. Airam Tripathi Erythrocyte distribution width (RBC) [Ratio] 13.2 % Normal 11.0-15.0 [facility] Comment on above: Performed By: #### C BC ####[facility] Aaqvwfagvs26[address] [place] [address]Dr. Airam Tripathi Hematocrit (Bld) [Volume fraction] 28.2 % Critically low 36.0-48.0 [facility] Comment on above: Performed By: #### C BC ####[facility] Sbmrpmdilh5[address] [place] [address]Dr. Airam Deuce Hemoglobin (Bld) [Mass/Vol] 9.1 g/dL Critically low 12.0-16.0 [facility] Comment on above: Performed By: #### C BC ####[facility] Ncyixuucmn9[address] [place] [address]Dr. Airam Tripathi IG # 0.03 10e3/ul Normal 0.00-0.03 [facility] Comment on above: Performed By: #### C BC ####[facility] Qqoqgyzqok9[address] [place] [address]Dr. Airam Tripathi IG % 0.4 % Normal 0.0-0.5 [facility] Comment on above: Performed By: #### C BC ####[facility] Ppuwfknrae8[address] [place] [address]Dr. Airam Tripathi LYMPH # 1.0 103/ul Critically low 1.2-3.8 [facility] Comment on above: Performed By: #### C BC ####[facility] Odgcfovpqm[address] [place] [address]Dr. Airma Tripathi Lymphocytes/100 WBC (Bld) 12.8 % Critically low 20.5-60.0 [facility] Comment on above: Performed By: #### C BC ####[facility] Cjaeuqnncn[address] [place] [address]Dr. Airam Tripathi MANUAL DIFF REQ NO Normal [facility] Comment on above: Performed By: #### C BC ####[facility] Oxsyvpsjmx020[address] [place], [place] [address]Dr. Selenaneil Tripathi MCH (RBC) [Entitic mass] 29.9 pg Normal 26.7-34.0 [facility] Comment on above: Performed By: #### C BC ####[facility] Qzdghyhuuz13[address] [place] [id number]. Airam Tripathi MCHC (RBC) [Mass/Vol] 32.3 g/dL Normal 29.9-35.2 [facility] Comment on above: Performed By: #### C BC ####[facility] Lophneglai[address] [place] [id number]. Airam Tripathi MCV (RBC) [Entitic vol] 92.8 fL Normal 81.0-99.0 [facility] Comment on above: Performed By: #### C BC ####[facility] Jpromakdaq1696 [place] [id number]. Airam Deuce MONO # 0.5 103/ul Normal 0.3-0.8 [facility] Comment on above: Performed By: #### C BC ####[facility] Samkhczdkv8232[address] [place], [place] [address]Dr. Selenaneil Tripathi Monocytes/100 WBC (Bld) 6.0 % Normal 1.7-12.0 [facility] Comment on above: Performed By: #### C BC ####[facility] Zsgxygwpxx[address] [place], [place] [address]Dr. Airam Tripathi NEUT # 6.0 103/ul Normal 1.4-6.5 [facility] Comment on above: Performed By: #### C BC ####[facility] Suzhgjaafi39[address] [place], [place] [address]Dr. Airam Tripathi Neutrophils/100 WBC (Bld) 78.2 % Critically high 43.0-75.0 [facility] Comment on above: Performed By: #### C BC ####[facility] Hwtsuhsiot69[address] [place] [id number]. Airam Tripathi Platelet mean volume (Bld) [Entitic vol] 9.0 fL Critically low 9.5-13.5 [facility] Comment on above: Performed By: #### C BC ####[facility] Zasugisscl7[address] [place] [id number]. Airam Deuce PLT 332 103/ul Normal 150-450 [facility] Comment on above: Performed By: #### C BC ####[facility] Gdkohhibmt84[address] [place] [address]Dr. Selenaneil Deuce RBC 3.04 106/ul Critically low 4.20-5.40 [facility] Comment on above: Performed By: #### C BC ####[facility] Vtiahtxhcv58[address] [place] [address]Dr. Airam Tripathi WBC 7.7 103/ul Normal 4.0-11.0 [facility] Comment on above: Performed By: #### C BC ####[facility] Bpyblwmqio2[address] [place], [place] [address]Dr. Airam Tripathi PROF 14(COMP METB)on 023 Albumin [Mass/Vol] 3.2 g/dL Critically low 3.4-5.0 e [facility] Comment on above: Performed By: #### C MP ####[facility] Tkcsnssigy3510[address] [place], [place] [address]Dr. Airam Tripathi Albumin/Globulin [Mass ratio] 0.9 {ratio} Normal [facility] Comment on above: Performed By: #### C MP ####[facility] Wwvpmgjvqf82[address] [place], [place] [address]Dr. Airam Tripathi ALP [Catalytic activity/Vol] 135 U/L Critically high 46-116 [facility] Comment on above: Performed By: #### C MP ####[facility] Zcptegfvvo165[address] [place], [place] [address]Dr. Airam Tripathi ALT [Catalytic activity/Vol] 25 U/L Normal 14-59 [facility] Comment on above: Performed By: #### C MP ####[facility] Gyoopgcfwp549[address] [place], [place] [address]Dr. Airam Tripathi Anion gap [Moles/Vol] 9.1 mmol/L Normal [facility] Comment on above: Performed By: #### C MP ####[facility] Jvtjeylgwi[address] [place], [place] [address]Dr. Airam Tripathi AST [Catalytic activity/Vol] 34 U/L Normal 15-37 [facility] Comment on above: Performed By: #### C MP ####[facility] Kitulwcavl991539 [address] [place], [place] [address]Dr. Airam Tripathi Bilirubin [Mass/Vol] 0.3 mg/dL Normal 0.2-1.0 [facility] Comment on above: Performed By: #### C MP ####[facility] Opxbipbdny[address] [place], [place] [address]Dr. Airam Tripathi Calcium [Mass/Vol] 8.6 mg/dL Normal 8.5-10.1 [facility] Comment on above: Performed By: #### C MP ####[facility] Nautvqwurb[address] [place], [place] [address]Dr. Airam Tripathi Chloride [Moles/Vol] 99 mmol/L Normal 98-107 [facility] Comment on above: Performed By: #### C MP ####[facility] Usevpwcicg2623[address] [place], [place] [address]Dr. Airam Tripathi CO2 [Moles/Vol] 29.1 mmol/L Normal 21.0-32.0 [facility] Comment on above: Performed By: #### C MP ####[facility] Qvajniflbw18[address] [place], [place] [address]Dr. Airam Tripathi Creatinine [Mass/Vol] 1.40 mg/dL Critically high 0.55-1.02 [facility] Comment on above: Performed By: #### C MP ####[facility] Ktamyqowar[address] [place], [place] [address]Dr. Airam Tripathi EGFR-AF LUXEMBOURGER 46 mL/min/1.73m2 Critically low >=60 [facility] Comment on above: Performed By: #### C MP ####[facility] Ppuoygzkch604[address] [place], [place] [address]Dr. Airam Deuce EGFR-NON AF LUXEMBOURGER 38 mL/min/1.73m2 Critically low >=60 [facility] Comment on above: Performed By: #### C MP ####[facility] Rfpwcihekp5[address] [place], [place] [address]Dr. Airam Deuce Globulin (S) [Mass/Vol] 3.4 g/dL Normal [facility] Comment on above: Performed By: #### C MP ####[facility] Xjnh[address]si[address] [place] [address]Dr. Airam Tripathi Glucose [Mass/Vol] 83 mg/dL Normal 74-106 [facility] Comment on above: Performed By: #### C MP ####[facility] Xiaszmmqip1925[address] [place], [place] [address]Dr. Airam Tripathi Potassium [Moles/Vol] 4.2 mmol/L Normal 3.5-5.1 [facility] Comment on above: Performed By: #### C MP ####[facility] Pgvnpeoxvd060[address] [place], [place] [address]Dr. Airam Tripathi Protein [Mass/Vol] 6.6 g/dL Normal 6.4-8.2 [facility] Comment on above: Performed By: #### C MP ####[facility] Bebbzezxbf638[address] [place], [place] [address]Dr. Airam Tripathi Sodium [Moles/Vol] 133 mmol/L Critically low 136-145 [facility] Comment on above: Performed By: #### C MP ####[facility] Koprjmdlej9670[address] [place], [place] [address]Dr. Airam Tripathi Urea nitrogen [Mass/Vol] 37.0 mg/dL Critically high 7.0-18.0 [facility] Comment on above: Performed By: #### C MP ####[facility] Xyxkoginrz2737[address] [place], [place] [address]Dr. Airam Tripathi Urea nitrogen/Creatinine [Mass ratio] 26.4 mg/mg Normal [facility] Comment on above: Performed By: #### C MP ####[facility] Rsittacsic7807[address] [place], [place] [address]Dr. Airam Tripathi BNPon 06-18-2022 Natriuretic peptide B (Bld) [Mass/Vol] 5826.0 pg/mL Critically high <=900.0 [facility] Comment on above: Performed By: #### B COPYHOLDER, CMP ####[facility] Bwlmxrqcrl4194[address] [place], [place] [address]Dr. Airam Tripathi CBC AUTO DIFFon 06-18-2022 BASO # 0.0 103/ul Normal 0.0-0.1 [facility] Comment on above: Performed By: #### C BC ####[facility] Njseorjwmq50[address] [place] [id number]. Airam Tripathi Basophils/100 WBC (Bld) 0.4 % Normal 0.2-2.0 [facility] Comment on above: Performed By: #### C BC ####[facility] Teysxcywix5[address] [place] [id number]. Airam Tripathi EO # 0.1 103/ul Normal 0.0-0.7 [facility] Comment on above: Performed By: #### C BC ####[facility] Zwwjstdibs3226 [place] [id number]. Airam Tripathi Eosinophils/100 WBC (Bld) 1.3 % Normal 0.9-7.0 [facility] Comment on above: Performed By: #### C BC ####[facility] Ybankrshmw817[address] [place], [place] [address]Dr. Airam Tripathi Erythrocyte distribution width (RBC) [Ratio] 13.4 % Normal 11.0-15.0 [facility] Comment on above: Performed By: #### C BC ####[facility] Kpoelsirur1335[address] [place], [place] [address]Dr. Airam Tripathi Hematocrit (Bld) [Volume fraction] 27.3 % Critically low 36.0-48.0 [facility] Comment on above: Performed By: #### C BC ####[facility] Cfdmvcctwy[address] [place], [place] [address]Dr. Airam Tripathi Hemoglobin (Bld) [Mass/Vol] 8.6 g/dL Critically low 12.0-16.0 [facility] Comment on above: Performed By: #### C BC ####[facility] Webafxbkie8607[address] [place], [place] [address]Dr. Airam Tripathi IG # 0.08 10e3/ul Critically high 0.00-0.03 [facility] Comment on above: Performed By: #### C BC ####[facility] Hyycqhyovp7[address] [place], [place] [address]Dr. Airam Tripathi IG % 0.8 % Critically high 0.0-0.5 [facility] Comment on above: Performed By: #### C BC ####[facility] Uqwpdawanb7[address] [place] [id number]. Airam Deuce LYMPH # 1.9 103/ul Normal 1.2-3.8 [facility] Comment on above: Performed By: #### C BC ####[facility] Nzstokvzbq9079 [place] [phone]. Airam Tripathi Lymphocytes/100 WBC (Bld) 19.3 % Critically low 20.5-60.0 [facility] Comment on above: Performed By: #### C BC ####[facility] Feixbelhrb[address] [place] [address]Dr. Airam Tripathi MANUAL DIFF REQ NO Normal [facility] Comment on above: Performed By: #### C BC ####[facility] I[address]oigvkos[address] [place] [address]Dr. Airam Tripathi MCH (RBC) [Entitic mass] 29.6 pg Normal 26.7-34.0 [facility] Comment on above: Performed By: #### C BC ####[facility] Rmrshtktao99[address] [place] [address]Dr. Selenaneil Tripathi MCHC (RBC) [Mass/Vol] 31.5 g/dL Normal 29.9-35.2 [facility] Comment on above: Performed By: #### C BC ####[facility] Aitvseqaes490[address] [place], [place] [address]Dr. Airam Tripathi MCV (RBC) [Entitic vol] 93.8 fL Normal 81.0-99.0 [facility] Comment on above: Performed By: #### C BC ####[facility] Judoebcpjq6552 [place] [id number]. Airam Tripathi MONO # 0.6 103/ul Normal 0.3-0.8 [facility] Comment on above: Performed By: #### C BC ####[facility] Dyzzsesnqh6907 [place] [phone]. Airam Tripathi Monocytes/100 WBC (Bld) 6.5 % Normal 1.7-12.0 [facility] Comment on above: Performed By: #### C BC ####[facility] Cekcaaptxn25[address] [place] [id number]. Selenaneil Tripathi NEUT # 6.9 103/ul Critically high 1.4-6.5 [facility] Comment on above: Performed By: #### C BC ####[facility] Floyfhinbp8503 [place] [id number] Tripathi Neutrophils/100 WBC (Bld) 71.7 % Normal 43.0-75.0 [facility] Comment on above: Performed By: #### C BC ####[facility] Tydvanicaa7[address] [place] [phone]. Airam Tripathi Platelet mean volume (Bld) [Entitic vol] 8.5 fL Critically low 9.5-13.5 [facility] Comment on above: Performed By: #### C BC ####[facility] Kqrtphkmdo74[address] [place] [address]Dr. Airam Tripathi PLT 295 103/ul Normal 150-450 [facility] Comment on above: Performed By: #### C BC ####[facility] Vlmbszidhi7235 [place] [id number]. Airam Tripathi RBC 2.91 106/ul Critically low 4.20-5.40 [facility] Comment on above: Performed By: #### C BC ####[facility] Epjbkgzdja1403 [place] [phone]. Airam Tripathi WBC 9.7 103/ul Normal 4.0-11.0 [facility] Comment on above: Performed By: #### C BC ####[facility] Kjuerwvwwz8870 [place] [id number] Tripathi PROF 14(COMP METB)on 022 Albumin [Mass/Vol] 2.8 g/dL Critically low 3.4-5.0 [facility] Comment on above: Performed By: #### B COPYHOLDER, CMP ####[facility] Gesynmvpbp4594 [place] [id number] Tripathi Albumin/Globulin [Mass ratio] 0.9 {ratio} Normal [facility] Comment on above: Performed By: #### B COPYHOLDER, CMP ####[facility] Txfdtsgxdp59[address] [place] [address]Dr. Airam Tripathi ALP [Catalytic activity/Vol] 125 U/L Critically high 46-116 [facility] Comment on above: Performed By: #### B COPYHOLDER, CMP ####[facility] Yftmbpsknn49[address] [place] [address]Dr. Airam Deuce ALT [Catalytic activity/Vol] 16 U/L Normal 14-59 [facility] Comment on above: Performed By: #### B COPYHOLDER, CMP ####[facility] Tkeoyjkket[address] [place] [address]Dr. Selenaneil Deuce Anion gap [Moles/Vol] 11.4 mmol/L Normal [facility] Comment on above: Performed By: #### B COPYHOLDER, CMP ####[facility] Xhudqbjbtb684[address] [place], [place] [address]Dr. Airam Tripathi AST [Catalytic activity/Vol] 23 U/L Normal 15-37 [facility] Comment on above: Performed By: #### B COPYHOLDER, CMP ####[facility] Bjopnsuubc947[address] [place], [place] [address]Dr. Airam Tripathi Bilirubin [Mass/Vol] 0.2 mg/dL Normal 0.2-1.0 [facility] Comment on above: Performed By: #### B COPYHOLDER, CMP ####[facility] Hodujjewyz5940[address] [place], [place] [address]Dr. Airam Tripathi Calcium [Mass/Vol] 8.1 mg/dL Critically low 8.5-10.1 [facility] Comment on above: Performed By: #### B COPYHOLDER, CMP ####[facility] Eqhjnnytrr34[address] [place] [address]Dr. Airam Tripathi Chloride [Moles/Vol] 96 mmol/L Critically low 98-107 [facility] Comment on above: Performed By: #### B COPYHOLDER, CMP ####[facility] Ekhfkkvoze2247[address] [place], [place] [address]Dr. Airam Tripathi CO2 [Moles/Vol] 26.6 mmol/L Normal 21.0-32.0 [facility] Comment on above: Performed By: #### B COPYHOLDER, CMP ####[facility] Kglpbdmhcn8332[address] [place], [place] [address]Dr. Airam Tripathi Creatinine [Mass/Vol] 1.31 mg/dL Critically high 0.55-1.02 [facility] Comment on above: Performed By: #### B COPYHOLDER, CMP ####[facility] Hxxrhznrjt020[address] [place], [place] [address]Dr. Airam Deuce EGFR-AF LUXEMBOURGER 50 mL/min/1.73m2 Critically low >=60 [facility] Comment on above: Performed By: #### B COPYHOLDER, CMP ####[facility] Vkpahytwpk3357[address] [place], [place] [address]Dr. Selenaneil Deuce EGFR-NON AF LUXEMBOURGER 41 mL/min/1.73m2 Critically low >=60 [facility] Comment on above: Performed By: #### B COPYHOLDER, CMP ####[facility] Mmswqysqtc7117[address] [place], [place] [address]Dr. Airam Deuce Globulin (S) [Mass/Vol] 3.0 g/dL Normal [facility] Comment on above: Performed By: #### B COPYHOLDER, CMP ####[facility] Tombpuuzoa8535[address] [place], [place] [address]Dr. Selenaneil Deuce Glucose [Mass/Vol] 82 mg/dL Normal 74-106 [facility] Comment on above: Performed By: #### B COPYHOLDER, CMP ####[facility] Saiozsdqkx710[address] [place], [place] [address]Dr. Airam Deuce Potassium [Moles/Vol] 4.0 mmol/L Normal 3.5-5.1 [facility] Comment on above: Performed By: #### B COPYHOLDER, CMP ####[facility] Cwglkfkqcd836[address] [place], [place] [address]Dr. Selenaenil Deuce Protein [Mass/Vol] 5.8 g/dL Critically low 6.4-8.2 [facility] Comment on above: Performed By: #### B COPYHOLDER, CMP ####[facility] Udptkfjvle089[address] [place], [place] [address]Dr. Airam Tripathi Sodium [Moles/Vol] 130 mmol/L Critically low 136-145 Th e [facility] Comment on above: Performed By: #### B COPYHOLDER, CMP ####[facility] Zbkdapizea213[address] [place], [place] [address]Dr. Airam Tripathi Urea nitrogen [Mass/Vol] 19.0 mg/dL Critically high 7.0-18.0 [facility] Comment on above: Performed By: #### B COPYHOLDER, CMP ####[facility] Ezqirtsfht016[address] [place], [place] [address]Dr. Airam Deuce Urea nitrogen/Creatinine [Mass ratio] 14.5 mg/mg Normal [facility] Comment on above: Performed By: #### B COPYHOLDER, CMP ####[facility] Uvevczznix859[address] [place], [place] [address]Dr. Airam eDuce BNPon 06-17-2022 Natriuretic peptide B (Bld) [Mass/Vol] 2510.0 pg/mL Critically high <=900.0 [facility] Comment on above: Performed By: #### B COPYHOLDER, CMP ####[facility] Mszqzcaaap310[address] [place], [place] [address]Dr. Airam Deuce CBC AUTO DIFFon 06-17-2022 BASO # 0.0 103/ul Normal 0.0-0.1 [facility] Comment on above: Performed By: #### C BC ####[facility] Czeuxkjpch588[address] [place], [place] [address]Dr. Airam Tripathi Basophils/100 WBC (Bld) 0.4 % Normal 0.2-2.0 [facility] Comment on above: Performed By: #### C BC ####[facility] Biwcfhtdbz5804[address] [place], [place] [address]Dr. Airam Tripathi EO # 0.0 103/ul Normal 0.0-0.7 [facility] Comment on above: Performed By: #### C BC ####[facility] Cevdljirgw4868[address] [place], [place] [address]Dr. Airam Tripathi Eosinophils/100 WBC (Bld) 0.3 % Critically low 0.9-7.0 [facility] Comment on above: Performed By: #### C BC ####[facility] Hhfdixpbeu8276 [place] [address]Dr. Airam Tripathi Erythrocyte distribution width (RBC) [Ratio] 13.6 % Normal 11.0-15.0 [facility] Comment on above: Performed By: #### C BC ####[facility] Tqramokkic589[address] [place], [place] [address]Dr. Airam Tripathi Hematocrit (Bld) [Volume fraction] 28.9 % Critically low 36.0-48.0 [facility] Comment on above: Performed By: #### C BC ####[facility] Trppdfrcun0348[address] [place], [place] [address]Dr. Airam Tripathi Hemoglobin (Bld) [Mass/Vol] 8.9 g/dL Critically low 12.0-16.0 [facility] Comment on above: Performed By: #### C BC ####[facility] Kxuzypgeek7308[address] [place], [place] [address]DrKianna Airam Tripathi IG # 0.10 10e3/ul Critically high 0.00-0.03 [facility] Comment on above: Performed By: #### C BC ####[facility] Mqhqzliibk140[address] [place], [place] [address]DrKianna Airam Deuce IG % 1.3 % Critically high 0.0-0.5 [facility] Comment on above: Performed By: #### C BC ####[facility] Dyasropkao6598[address] [place], [place] [address]DrKianna Airam Deuce LYMPH # 0.7 103/ul Critically low 1.2-3.8 [facility] Comment on above: Performed By: #### C BC ####[facility] Slhyovxxgs2490[address] [place], [place] [address]Dr. Selenaneil Trpiathi Lymphocytes/100 WBC (Bld) 8.1 % Critically low 20.5-60.0 [facility] Comment on above: Performed By: #### C BC ####[facility] Sjbvgcxaif1118[address] [place], [place] [address]DrKianna Selenaneil Tripathi MANUAL DIFF REQ NO Normal [facility] Comment on above: Performed By: #### C BC ####[facility] Esjafdwsci70[address] [place] [address]Dr. Airam Deuce MCH (RBC) [Entitic mass] 29.4 pg Normal 26.7-34.0 [facility] Comment on above: Performed By: #### C BC ####[facility] Pgnrkvwywh4819 [place] [address]Dr. Airam Tripathi MCHC (RBC) [Mass/Vol] 30.8 g/dL Normal 29.9-35.2 [facility] Comment on above: Performed By: #### C BC ####[facility] Oktuelsfpt9930 [place] [address]DrKianna Tripathi MCV (RBC) [Entitic vol] 95.4 fL Normal 81.0-99.0 [facility] Comment on above: Performed By: #### C BC ####[facility] Hugeosbrnn[address] [place], [place] [address]DrKianna Tripathi MONO # 0.3 103/ul Normal 0.3-0.8 [facility] Comment on above: Performed By: #### C BC ####[facility] Wdrqjywhwq510[address] [place], [place] [address]DrKianna Tripathi Monocytes/100 WBC (Bld) 3.1 % Normal 1.7-12.0 [facility] Comment on above: Performed By: #### C BC ####[facility] Eipxjnmfct946[address] [place], [place] [address]DrKianna Tripathi NEUT # 7.0 103/ul Critically high 1.4-6.5 [facility] Comment on above: Performed By: #### C BC ####[facility] Lzswkrmptj2210[address] [place], [place] [address]DrKianna Tripathi Neutrophils/100 WBC (Bld) 86.8 % Critically high 43.0-75.0 [facility] Comment on above: Performed By: #### C BC ####[facility] Eitsovuwfx2022[address] [place], [place] [address]DrKianna Tripathi Platelet mean volume (Bld) [Entitic vol] 8.3 fL Critically low 9.5-13.5 [facility] Comment on above: Performed By: #### C BC ####[facility] Tanouhurzl[address] [place] [address]Dr. Airam Tripathi PLT 279 103/ul Normal 150-450 [facility] Comment on above: Performed By: #### C BC ####[facility] Csjuskpmqs3208 [place] [address]Dr. Airam Tripathi RBC 3.03 106/ul Critically low 4.20-5.40 [facility] Comment on above: Performed By: #### C BC ####[facility] Nwtehypgsl0446 [place] [address]Dr. Airam Tripathi WBC 8.0 103/ul Normal 4.0-11.0 [facility] Comment on above: Performed By: #### C BC ####[facility] Dnbznmnznh6465 [place] [address]Dr. Airam Tripathi PROF 14(COMP METB)on 022 Albumin [Mass/Vol] 2.8 g/dL Critically low 3.4-5.0 [facility] Comment on above: Performed By: #### B COPYHOLDER, CMP ####[facility] Xctkgyftpr168[address] [place], [place] [address]Dr. Airam Tripathi Albumin/Globulin [Mass ratio] 0.9 {ratio} Normal [facility] Comment on above: Performed By: #### B COPYHOLDER, CMP ####[facility] Vnsxzfqkrk2797[address] [place], [place] [address]Dr. Airam Tripathi ALP [Catalytic activity/Vol] 136 U/L Critically high 46-116 [facility] Comment on above: Performed By: #### B COPYHOLDER, CMP ####[facility] Swxtdumhpg962[address] [place], [place] [address]Dr. Airam Tripathi ALT [Catalytic activity/Vol] 17 U/L Normal 14-59 [facility] Comment on above: Performed By: #### B COPYHOLDER, CMP ####[facility] Kmmwvxnqrm035[address] [place], [place] [address]Dr. Airam Tripathi Anion gap [Moles/Vol] 12.9 mmol/L Normal Th e [facility] Comment on above: Performed By: #### B COPYHOLDER, CMP ####[facility] Chdnzxnuso5095[address] [place], [place] [address]Dr. Airam Tripathi AST [Catalytic activity/Vol] 24 U/L Normal 15-37 [facility] Comment on above: Performed By: #### B COPYHOLDER, CMP ####[facility] Mkuwgtcngn4367[address] [place], [place] [address]Dr. Airam Tripathi Bilirubin [Mass/Vol] 0.2 mg/dL Normal 0.2-1.0 [facility] Comment on above: Performed By: #### B COPYHOLDER, CMP ####[facility] Ecakchxpnf8070[address] [place], [place] [address]Dr. Airam Tripathi Calcium [Mass/Vol] 8.7 mg/dL Normal 8.5-10.1 [facility] Comment on above: Performed By: #### B COPYHOLDER, CMP ####[facility] Dcrssbimrz7048[address] [place], [place] [address]Dr. Airam Tripathi Chloride [Moles/Vol] 102 mmol/L Normal 98-107 [facility] Comment on above: Performed By: #### B COPYHOLDER, CMP ####[facility] Wxlnkaxgkm9590[address] [place], [place] [address]Dr. Airam Tripathi CO2 [Moles/Vol] 23.8 mmol/L Normal 21.0-32.0 [facility] Comment on above: Performed By: #### B COPYHOLDER, CMP ####[facility] Salyetemza4090[address] [place], [place] [address]Dr. Airam Tripathi Creatinine [Mass/Vol] 1.08 mg/dL Critically high 0.55-1.02 [facility] Comment on above: Performed By: #### B COPYHOLDER, CMP ####[facility] Lkwcuktlxz7238[address] [place], [place] [address]Dr. Airam Tripathi EGFR-AF LUXEMBOURGER >60 Normal >=60 [facility] Comment on above: Performed By: #### B COPYHOLDER, CMP ####[facility] Ykgcrstrok429[address] [place], [place] [address]Dr. Airam Tripathi EGFR-NON AF LUXEMBOURGER 52 mL/min/1.73m2 Critically low >=60 [facility] Comment on above: Performed By: #### B COPYHOLDER, CMP ####[facility] Iunnzrgchm8170[address] [place], [place] [address]Dr. Airam Tripathi Globulin (S) [Mass/Vol] 3.2 g/dL Normal [facility] Comment on above: Performed By: #### B COPYHOLDER, CMP ####[facility] Uirpvbvggy846[address] [place], [place] [address]Dr. Airam Tripathi Glucose [Mass/Vol] 99 mg/dL Normal 74-106 [facility] Comment on above: Performed By: #### B COPYHOLDER, CMP ####[facility] Orauycoqew4145[address] [place], [place] [address]Dr. Airam Tripathi Potassium [Moles/Vol] 4.7 mmol/L Normal 3.5-5.1 [facility] Comment on above: Performed By: #### B COPYHOLDER, CMP ####[facility] Gmningitfk847[address] [place], [place] [address]Dr. Airam Tripathi Protein [Mass/Vol] 6.0 g/dL Critically low 6.4-8.2 [facility] Comment on above: Performed By: #### B COPYHOLDER, CMP ####[facility] Rmefkmycsf4725[address] [place], [place] [address]Dr. Airam Tripathi Sodium [Moles/Vol] 134 mmol/L Critically low 136-145 [facility] Comment on above: Performed By: #### B COPYHOLDER, CMP ####[facility] Mpvcmibwoj[address] [place], [place] [address]Dr. Airam Tripathi Urea nitrogen [Mass/Vol] 19.0 mg/dL Critically high 7.0-18.0 [facility] Comment on above: Performed By: #### B COPYHOLDER, CMP ####[facility] Cgqszamyci9718[address] [place], [place] [address]Dr. Airam Tripathi Urea nitrogen/Creatinine [Mass ratio] 17.6 mg/mg Normal [facility] Comment on above: Performed By: #### B COPYHOLDER, CMP ####[facility] Xwecbsrikl[address] [place], [place] [address]Dr. Airam Tripathi PROTIMEon 06-17-2022 INR Coag (PPP) [Relative time] 1.00 {INR} Normal [facility] Comment on above: Performed By: #### P T ####[facility] Vdxbsufssn[address] [place], [place] [address]Dr. Airam Tripathi INR GUIDELINES SEE BELOW Normal [facility] Comment on above: Result Comment: SIDRA RED INR: 2.0 - 3.0 CONDITIONS NOT LISTED BELOW 2.5 - 3.5 FOR PROSTHETIC HEART VALVE REPLACEMENT 2.5 - 3.5 RECURRENT THROMBOSIS Performed By: #### P T ####[facility] Mkfugrqnus[address] [place] [address]. Airam Tripathi PT Coag (PPP) [Time] 10.8 s Normal 9.0-11.6 [facility] Comment on above: Performed By: #### P T ####[facility] Stbcvexyuc4613[address] [place], [place] [address]Dr. Airam Tripathi PTTon 06-17-2022 aPTT Coag (Bld) [Time] 27.2 s Normal 22.3-36.2 Th [facility] Comment on above: Performed By: #### P TT ####[facility] Oblnngncht[address] [place], [place] [address]Dr. Airam Tripathi BNPon 06-16-2022 Natriuretic peptide B (Bld) [Mass/Vol] 2293.0 pg/mL Critically high <=900.0 [facility] Comment on above: Performed By: #### C MP, BNP ####[facility] Blxryqxvcd[address] [place] [address]. Airam Tripathi CBC AUTO DIFFon 06-16-2022 BASO # 0.0 103/ul Normal 0.0-0.1 [facility] Comment on above: Performed By: #### C BC ####[facility] Mqkfhusfkd[address] [place] [address]. Airam Tripathi Basophils/100 WBC (Bld) 0.4 % Normal 0.2-2.0 [facility] Comment on above: Performed By: #### C BC ####[facility] Vybypqzttg[address] [place] [id number]. Airam Tripathi EO # 0.2 103/ul Normal 0.0-0.7 [facility] Comment on above: Performed By: #### C BC ####[facility] Jvfukjszaz[address] [place] [id number]. Airam Tripathi Eosinophils/100 WBC (Bld) 3.0 % Normal 0.9-7.0 [facility] Comment on above: Performed By: #### C BC ####[facility] Rsezjpceqa[address] [place], [place] [address]Dr. Airam Tripathi Erythrocyte distribution width (RBC) [Ratio] 13.3 % Normal 11.0-15.0 [facility] Comment on above: Performed By: #### C BC ####[facility] Vxcmskvoao[address] [place], [place] [address]Dr. Airam Tripathi Hematocrit (Bld) [Volume fraction] 26.2 % Critically low 36.0-48.0 [facility] Comment on above: Performed By: #### C BC ####[facility] Awvvhukypk[address] [place], [place] [address]Dr. Airam Tripathi Hemoglobin (Bld) [Mass/Vol] 8.3 g/dL Critically low 12.0-16.0 [facility] Comment on above: Performed By: #### C BC ####[facility] Meprsaxgzq[address] [place], [place] [address]Dr. Airam Tripathi IG # 0.08 10e3/ul Critically high 0.00-0.03 [facility] Comment on above: Performed By: #### C BC ####[facility] Gfxieoiyta455[address] [place], [place] [address]Dr. Airam Tripathi IG % 1.1 % Critically high 0.0-0.5 [facility] Comment on above: Performed By: #### C BC ####[facility] Pgpdrsdpsq74[address] [place], [place] [address]Dr. Airam Tripathi LYMPH # 1.2 103/ul Normal 1.2-3.8 [facility] Comment on above: Performed By: #### C BC ####[facility] Hjjriugugz[address] [place] [id number]. Airam Deuce Lymphocytes/100 WBC (Bld) 17.3 % Critically low 20.5-60.0 [facility] Comment on above: Performed By: #### C BC ####[facility] [address]sw[address] [place] [address]Dr. Airam Tripathi MANUAL DIFF REQ NO Normal [facility] Comment on above: Performed By: #### C BC ####[facility] Bwukhqlwcq36[address] [place] [id number]. Selenaneil Tripathi MCH (RBC) [Entitic mass] 30.3 pg Normal 26.7-34.0 [facility] Comment on above: Performed By: #### C BC ####[facility] Aturaudwub3165[address] [place], [place] [address]Dr. Airam Tripathi MCHC (RBC) [Mass/Vol] 31.7 g/dL Normal 29.9-35.2 [facility] Comment on above: Performed By: #### C BC ####[facility] Raeezaueiv0985[address] [place], [place] [address]Dr. Selenaneil Tripathi MCV (RBC) [Entitic vol] 95.6 fL Normal 81.0-99.0 [facility] Comment on above: Performed By: #### C BC ####[facility] Inmqlszbku8074[address] [place], [place] [address]Dr. Airam Tripathi MONO # 0.5 103/ul Normal 0.3-0.8 [facility] Comment on above: Performed By: #### C BC ####[facility] Hyndkusooc9375[address] [place], [place] [address]Dr. Airam Tripathi Monocytes/100 WBC (Bld) 7.1 % Normal 1.7-12.0 [facility] Comment on above: Performed By: #### C BC ####[facility] Lwqcnxosbe8220[address] [place], [place] [address]Dr. Airam Tripathi NEUT # 5.0 103/ul Normal 1.4-6.5 [facility] Comment on above: Performed By: #### C BC ####[facility] Msoyxwmsaw[address] [place] [id number]. Airam Tripathi Neutrophils/100 WBC (Bld) 71.1 % Normal 43.0-75.0 [facility] Comment on above: Performed By: #### C BC ####[facility] Kwqpceudnn[address] [place] [id number]. Airam Tripathi Platelet mean volume (Bld) [Entitic vol] 8.2 fL Critically low 9.5-13.5 [facility] Comment on above: Performed By: #### C BC ####[facility] X[address]choofpy[address] [place] [address]Dr. Airam Tripathi PLT 247 103/ul Normal 150-450 [facility] Comment on above: Performed By: #### C BC ####[facility] Tcvmnprwsa[address] [place] [address]Dr. Airam Tripathi RBC 2.74 106/ul Critically low 4.20-5.40 [facility] Comment on above: Performed By: #### C BC ####[facility] Hyblboiztg6627[address] [place], [place] [address]Dr. Airam Tripathi WBC 7.1 103/ul Normal 4.0-11.0 [facility] Comment on above: Performed By: #### C BC ####[facility] Nhacqgorkr9022[address] [place], [place] [address]Dr. Airam Tripathi CTA CHEST WO W CONon 022 CTA CHEST WO W CON Normal [facility] PROF 14(COMP METB)on 022 Albumin [Mass/Vol] 2.6 g/dL Critically low 3.4-5.0 Th e [facility] Comment on above: Performed By: #### C MP, BNP ####[facility] Nqsrddpuxm9[address] [place], [place] [address]Dr. Airam Tripathi Albumin/Globulin [Mass ratio] 0.8 {ratio} Normal [facility] Comment on above: Performed By: #### C MP, BNP ####[facility] Axwvvkistf[address] [place], [place] [address]Dr. Airam Tripathi ALP [Catalytic activity/Vol] 130 U/L Critically high 46-116 [facility] Comment on above: Performed By: #### C MP, BNP ####[facility] Avhkclxzaf9040[address] [place], [place] [address]Dr. Airam Tripathi ALT [Catalytic activity/Vol] 12 U/L Critically low 14-59 [facility] Comment on above: Performed By: #### C MP, BNP ####[facility] Votvhvxpej3918[address] [place], [place] [address]Dr. Airam Tripathi Anion gap [Moles/Vol] 11.8 mmol/L Normal [facility] Comment on above: Performed By: #### C MP, BNP ####[facility] Djnwtpcdkl0214[address] [place], [place] [address]Dr. Airam Tripathi AST [Catalytic activity/Vol] 22 U/L Normal 15-37 [facility] Comment on above: Performed By: #### C MP, BNP ####[facility] Eomkidfitm54[address] [place], [place] [address]Dr. Airam Deuce Bilirubin [Mass/Vol] 0.2 mg/dL Normal 0.2-1.0 [facility] Comment on above: Performed By: #### C MP, BNP ####[facility] Yyjcaxzpez287[address] [place], [place] [address]Dr. Airam Tripathi Calcium [Mass/Vol] 8.0 mg/dL Critically low 8.5-10.1 [facility] Comment on above: Performed By: #### C MP, BNP ####[facility] Zpcrmribwn[address] [place], [place] [address]Dr. Airam Deuce Chloride [Moles/Vol] 104 mmol/L Normal 98-107 [facility] Comment on above: Performed By: #### C MP, BNP ####[facility] Sooennraqy4245[address] [place], [place] [address]Dr. Airam Deuce CO2 [Moles/Vol] 22.8 mmol/L Normal 21.0-32.0 [facility] Comment on above: Performed By: #### C MP, BNP ####[facility] Sdfmeluqmz[address] [place] [address]Dr. Airam Tripathi Creatinine [Mass/Vol] 1.07 mg/dL Critically high 0.55-1.02 [facility] Comment on above: Performed By: #### C MP, BNP ####[facility] Virfuwaipk[address] [place] [address]Dr. Airam Tripathi EGFR-AF LUXEMBOURGER >60 Normal >=60 [facility] Comment on above: Performed By: #### C MP, BNP ####[facility] Ahqeckrgid46[address] [place] [address]Dr. Airam Tripathi EGFR-NON AF LUXEMBOURGER 52 mL/min/1.73m2 Critically low >=60 [facility] Comment on above: Performed By: #### C MP, BNP ####[facility] Nyiigcqypx499[address] [place], [place] [address]Dr. Airam Tripathi Globulin (S) [Mass/Vol] 3.1 g/dL Normal [facility] Comment on above: Performed By: #### C MP, BNP ####[facility] Xalipypeie14119[address] [place], [place] [address]Dr. Airam Tripathi Glucose [Mass/Vol] 85 mg/dL Normal 74-106 [facility] Comment on above: Performed By: #### C MP, BNP ####[facility] Mlqregoqmk9387[address] [place], [place] [address]Dr. Airam Tripathi Potassium [Moles/Vol] 4.6 mmol/L Normal 3.5-5.1 [facility] Comment on above: Performed By: #### C MP, BNP ####[facility] Tgseqkphxj[address] [place] [address]Dr. Airam Tripathi Protein [Mass/Vol] 5.7 g/dL Critically low 6.4-8.2 [facility] Comment on above: Performed By: #### C MP, BNP ####[facility] Lafmpffkia[address] [place] [address]Dr. Airam Tripathi Sodium [Moles/Vol] 134 mmol/L Critically low 136-145 Th [facility] Comment on above: Performed By: #### C MP, BNP ####[facility] Vaotvtatol[address] [place] [address]Dr. Airam Tripathi Urea nitrogen [Mass/Vol] 24.0 mg/dL Critically high 7.0-18.0 [facility] Comment on above: Performed By: #### C MP, BNP ####[facility] Tdxjhbfylz[address]74[address] [place], [place] [address]Dr. Airam Tripathi Urea nitrogen/Creatinine [Mass ratio] 22.4 mg/mg Normal [facility] Comment on above: Performed By: #### C MP, BNP ####[facility] Wdmsziappj3047[address] [place], [place] [address]Dr. Airam Tripathi BNPon 06-15-2022 Natriuretic peptide B (Bld) [Mass/Vol] 934.0 pg/mL Critically high <=900.0 [facility] Comment on above: Performed By: #### C MP, BNP ####[facility] Cxxujfitrf6347[address] [place], [place] [address]Dr. Airam Tripathi CBC AUTO DIFFon 06-15-2022 BASO # 0.0 103/ul Normal 0.0-0.1 [facility] Comment on above: Performed By: #### C BC ####[facility] Zitkvyoopb1678[address] [place], [place] [address]Dr. Airam Deuce Basophils/100 WBC (Bld) 0.2 % Normal 0.2-2.0 [facility] Comment on above: Performed By: #### C BC ####[facility] Rvydimtfna9[address] [place], [place] [address]Dr. Airam Tripathi EO # 0.1 103/ul Normal 0.0-0.7 [facility] Comment on above: Performed By: #### C BC ####[facility] Cvnkbtbkei175[address] [place], [place] [address]Dr. Airam Deuce Eosinophils/100 WBC (Bld) 2.1 % Normal 0.9-7.0 [facility] Comment on above: Performed By: #### C BC ####[facility] Sdhqfphtha[address] [place], [place] [address]Dr. Airam Tripathi Erythrocyte distribution width (RBC) [Ratio] 12.9 % Normal 11.0-15.0 [facility] Comment on above: Performed By: #### C BC ####[facility] R[address]xlbmhnau[address] [place] [address]DrKianna Tripathi Hematocrit (Bld) [Volume fraction] 24.9 % Critically low 36.0-48.0 [facility] Comment on above: Performed By: #### C BC ####[facility] Siqposudeg0733[address] [place], [place] [address]DrKianna Tripathi Hemoglobin (Bld) [Mass/Vol] 7.9 g/dL Critically low 12.0-16.0 [facility] Comment on above: Performed By: #### C BC ####[facility] Weyqpcvbwx6[address] [place], [place] [address]DrKianna Tripathi IG # 0.05 10e3/ul Critically high 0.00-0.03 [facility] Comment on above: Performed By: #### C BC ####[facility] Dfilcqwlvn184[address] [place], [place] [address]DrKianna Tripathi IG % 0.8 % Critically high 0.0-0.5 [facility] Comment on above: Performed By: #### C BC ####[facility] Phrjhaxefv99[address] [place], [place] [address]DrKianna Tripathi LYMPH # 0.9 103/ul Critically low 1.2-3.8 [facility] Comment on above: Performed By: #### C BC ####[facility] Buqodlwqxp8822[address] [place], [place] [address]DrKianna Tripathi Lymphocytes/100 WBC (Bld) 13.7 % Critically low 20.5-60.0 [facility] Comment on above: Performed By: #### C BC ####[facility] Xezrvrvpbc26[address] [place], [place] [address]DrKianna Tripathi MANUAL DIFF REQ NO Normal [facility] Comment on above: Performed By: #### C BC ####[facility] Edcfnyrsrf2240[address] [place], [place] [address]DrKianna Tripathi MCH (RBC) [Entitic mass] 30.2 pg Normal 26.7-34.0 [facility] Comment on above: Performed By: #### C BC ####[facility] Lvfkamzmeu[address] [place] [address]DrKianna Tripathi MCHC (RBC) [Mass/Vol] 31.7 g/dL Normal 29.9-35.2 [facility] Comment on above: Performed By: #### C BC ####[facility] Guiegvhygo[address] [place] [address]DrKianna Tripathi MCV (RBC) [Entitic vol] 95.0 fL Normal 81.0-99.0 [facility] Comment on above: Performed By: #### C BC ####[facility] Gdkyajvpix109[address] [place], [place] [address]DrKianna Tripathi MONO # 0.4 103/ul Normal 0.3-0.8 [facility] Comment on above: Performed By: #### C BC ####[facility] Girkimbjtk333[address] [place], [place] [address]DrKianna Tripathi Monocytes/100 WBC (Bld) 6.7 % Normal 1.7-12.0 [facility] Comment on above: Performed By: #### C BC ####[facility] Dorgkirrjr8004[address] [place], [place] [address]DrKianna Tripathi NEUT # 5.0 103/ul Normal 1.4-6.5 [facility] Comment on above: Performed By: #### C BC ####[facility] Zwrqhkljpd1910[address] [place], [place] [address]DrKianna Tripathi Neutrophils/100 WBC (Bld) 76.5 % Critically high 43.0-75.0 [facility] Comment on above: Performed By: #### C BC ####[facility] Xccoxymheh314[address] [place], [place] [address]DrKianna Tripathi Platelet mean volume (Bld) [Entitic vol] 8.4 fL Critically low 9.5-13.5 [facility] Comment on above: Performed By: #### C BC ####[facility] Tafwgwcozy3933[address] [place], [place] [address]DrKianna Tripathi PLT 202 103/ul Normal 150-450 [facility] Comment on above: Performed By: #### C BC ####[facility] Rhslcomctm[address] [place] [address]Dr. Airam Tripathi RBC 2.62 106/ul Critically low 4.20-5.40 [facility] Comment on above: Performed By: #### C BC ####[facility] Jgjwzzqddy[address] [place] [address]Dr. Airam Tripathi WBC 6.6 103/ul Normal 4.0-11.0 [facility] Comment on above: Performed By: #### C BC ####[facility] Nesxaodpev[address] [place] [address]DrKianna Tripathi OSMOLALITYon 06-15-2022 Osmolality [Osmolality] 269 mosm/kg Critically low 275-295 [facility] Comment on above: Performed By: #### O SMO ####[facility] Xajhfjsnrd6216[address] [place], [place] [address]DrKianna Tripathi PROF 14(COMP METB)on 022 Albumin [Mass/Vol] 2.5 g/dL Critically low 3.4-5.0 [facility] Comment on above: Performed By: #### C MP, BNP ####[facility] Feqcygodyq35[address] [place] [address]Dr. Airam Tripathi Albumin/Globulin [Mass ratio] 0.9 {ratio} Normal [facility] Comment on above: Performed By: #### C MP, BNP ####[facility] Wkfknzwitk[address] [place] [address]Dr. Airam Tripathi ALP [Catalytic activity/Vol] 128 U/L Critically high 46-116 [facility] Comment on above: Performed By: #### C MP, BNP ####[facility] Xtbxewkajf[address] [place] [address]DrKianna Tripathi ALT [Catalytic activity/Vol] 14 U/L Normal 14-59 [facility] Comment on above: Performed By: #### C MP, BNP ####[facility] Ohxunfamuw9[address] [place], [place] [address]Dr. Airam Tripathi Anion gap [Moles/Vol] 10.4 mmol/L Normal [facility] Comment on above: Performed By: #### C MP, BNP ####[facility] Hlcxnctnpt486[address] [place], [place] [address]Dr. Airam Tripathi AST [Catalytic activity/Vol] 23 U/L Normal 15-37 [facility] Comment on above: Performed By: #### C MP, BNP ####[facility] Ezchfavbpe[address]165[address] [place], [place] [address]Dr. Airam Tripathi Bilirubin [Mass/Vol] 0.2 mg/dL Normal 0.2-1.0 [facility] Comment on above: Performed By: #### C MP, BNP ####[facility] Zxsoflmyrk2125[address] [place], [place] [address]Dr. Airam Tripathi Calcium [Mass/Vol] 7.4 mg/dL Critically low 8.5-10.1 [facility] Comment on above: Performed By: #### C MP, BNP ####[facility] Laigicselw242[address] [place], [place] [address]Dr. Airam Tripathi Chloride [Moles/Vol] 99 mmol/L Normal 98-107 [facility] Comment on above: Performed By: #### C MP, BNP ####[facility] Oxadgpzspn150[address] [place], [place] [address]Dr. Airam Tripathi CO2 [Moles/Vol] 24.1 mmol/L Normal 21.0-32.0 [facility] Comment on above: Performed By: #### C MP, BNP ####[facility] Xmqozrnuww019[address] [place], [place] [address]Dr. Airam Tripathi Creatinine [Mass/Vol] 1.45 mg/dL Critically high 0.55-1.02 [facility] Comment on above: Performed By: #### C MP, BNP ####[facility] Vqovkalhfh[address]32[address] [place], [place] [address]Dr. Airam Tripathi EGFR-AF LUXEMBOURGER 45 mL/min/1.73m2 Critically low >=60 [facility] Comment on above: Performed By: #### C MP, BNP ####[facility] Lqzrrwunzl66[address] [place] [id number]. Airam Tripathi EGFR-NON AF LUXEMBOURGER 37 mL/min/1.73m2 Critically low >=60 [facility] Comment on above: Performed By: #### C MP, BNP ####[facility] Caqxfixpjo04[address] [place] [address]Dr. Airam Tripathi Globulin (S) [Mass/Vol] 2.8 g/dL Normal [facility] Comment on above: Performed By: #### C MP, BNP ####[facility] Hpefimpucr0713[address] [place], [place] [address]Dr. Airam Tripathi Glucose [Mass/Vol] 82 mg/dL Normal 74-106 [facility] Comment on above: Performed By: #### C MP, BNP ####[facility] Arzspjiobf9713[address] [place], [place] [address]Dr. Airam Tripathi Potassium [Moles/Vol] 4.5 mmol/L Normal 3.5-5.1 [facility] Comment on above: Performed By: #### C MP, BNP ####[facility] Ygswmrfdda8430[address] [place], [place] [address]Dr. Airam Tripathi Protein [Mass/Vol] 5.3 g/dL Critically low 6.4-8.2 [facility] Comment on above: Performed By: #### C MP, BNP ####[facility] Vmalnfoyyi[address] [place], [place] [address]Dr. Airam Tripathi Sodium [Moles/Vol] 129 mmol/L Critically low 136-145 Th [facility] Comment on above: Performed By: #### C MP, BNP ####[facility] Bcbuhbvdic[address] [place] [address]Dr. Airam Tripathi Urea nitrogen [Mass/Vol] 35.0 mg/dL Critically high 7.0-18.0 [facility] Comment on above: Performed By: #### C MP, BNP ####[facility] Payywkconq184[address] [place], [place] [address]Dr. Airam Tripathi Urea nitrogen/Creatinine [Mass ratio] 24.1 mg/mg Normal [facility] Comment on above: Performed By: #### C MP, BNP ####[facility] Oilrfqvkjp[address] [place] [address]Dr. Airam Tripathi T3, TOTAL (TRIIODOTHYRONINE) on 06-15-2022 T3, TOTAL 113 ng/dL Normal 71-180 [facility] Comment on above: Performed By: #### T 3TOTAL ####[facility] Ddvozpxnrv907[address] [place], [place] [address]Dr. Airam Tripathi BNPon 06-14-2022 Natriuretic peptide B (Bld) [Mass/Vol] 1024.0 pg/mL Critically high <=900.0 [facility] Comment on above: Performed By: #### B COPYHOLDER, CMP ####[facility] Gosgnxauvd4[address] [place], [place] [address]Dr. Airam Tripathi CARDIAC CONSUELO 3-6on 2 CK [Catalytic activity/Vol] 116 U/L Normal 26-192 [facility] Comment on above: Performed By: #### C MREP ####[facility] Mamhylmeur8[address] [place], [place] [address]Dr. Airam Tripathi CK.MB [Mass/Vol] ng/mL Normal <=3.60 [facility] Comment on above: Performed By: #### C MREP ####[facility] Rbcbobsnnd[address]25[address] [place], [place] [address]Dr. Airam Tripathi HSTROP 6.0 pg/mL Normal 4.0-51.3 [facility] Comment on above: Result Comment: CUT- OFF POINTS HAVE BEEN ESTABLISHED BASED ON THE FOURTH UNIVERSAL DEFINITIONS OF MYOCARDIALINFARCTION. THE UPPER REFERENCE LIMIT (URL) OF TROPONIN, DEFINED THE 99TH PERCENTILE OFcTnI DISTRIBUTION IN A REFERENCE POPULATION, HAS BEEN CONFIRMED THE DECISION THRESHOLDFOR [place] DIAGNOSIS. Performed By: #### C MREP ####[facility] Jtxtepsvta218[address] [place], [place] [address]Dr. Airam Tripathi CBC AUTO DIFFon 06-14-2022 BASO # 0.0 103/ul Normal 0.0-0.1 [facility] Comment on above: Performed By: #### C BC ####[facility] Isrgxtserc[address] [place], [place] [address]Dr. Airam Tripathi Basophils/100 WBC (Bld) 0.3 % Normal 0.2-2.0 [facility] Comment on above: Performed By: #### C BC ####[facility] Isvyomufjl[address] [place] [address]Dr. Airam Tripathi EO # 0.2 103/ul Normal 0.0-0.7 [facility] Comment on above: Performed By: #### C BC ####[facility] Dwkeyqjqff[address] [place], [place] [address]Dr. Airam Tripathi Eosinophils/100 WBC (Bld) 2.0 % Normal 0.9-7.0 [facility] Comment on above: Performed By: #### C BC ####[facility] Bqpznepido[address] [place], [place] [address]Dr. Airam Tripathi Erythrocyte distribution width (RBC) [Ratio] 12.8 % Normal 11.0-15.0 [facility] Comment on above: Performed By: #### C BC ####[facility] Srovwnhxtl[address] [place], [place] [address]Dr. Airam Tripathi Hematocrit (Bld) [Volume fraction] 27.4 % Critically low 36.0-48.0 [facility] Comment on above: Performed By: #### C BC ####[facility] Prgihiyiuj[address] [place], [place] [address]Dr. Airam Tripathi Hemoglobin (Bld) [Mass/Vol] 8.7 g/dL Critically low 12.0-16.0 [facility] Comment on above: Performed By: #### C BC ####[facility] Uopxxwctkv[address] [place], [place] [address]Dr. Airam Tripathi IG # 0.11 10e3/ul Critically high 0.00-0.03 [facility] Comment on above: Performed By: #### C BC ####[facility] Tsphjpbvxx[address] [place], [place] [address]Dr. Airam Tripathi IG % 1.1 % Critically high 0.0-0.5 [facility] Comment on above: Performed By: #### C BC ####[facility] Cxsynadrge3726 [place] [id number]. Airam Tripathi LYMPH # 0.9 103/ul Critically low 1.2-3.8 [facility] Comment on above: Performed By: #### C BC ####[facility] Ifvityocxv1798 [place] [id number]. Airam Tripathi Lymphocytes/100 WBC (Bld) 9.7 % Critically low 20.5-60.0 [facility] Comment on above: Performed By: #### C BC ####[facility] Eymksffpdu[address] [place] [id number]. Airam Deuce MANUAL DIFF REQ NO Normal [facility] Comment on above: Performed By: #### C BC ####[facility] Mubovvwaxc2[address] [place] [address]Dr. Airam Deuce MCH (RBC) [Entitic mass] 30.0 pg Normal 26.7-34.0 [facility] Comment on above: Performed By: #### C BC ####[facility] Wqkpljmkty9[address] [place] [address]Dr. Airam Tripathi MCHC (RBC) [Mass/Vol] 31.8 g/dL Normal 29.9-35.2 [facility] Comment on above: Performed By: #### C BC ####[facility] Ynhcofkokc9648 [place] [phone]. Airam Tripathi MCV (RBC) [Entitic vol] 94.5 fL Normal 81.0-99.0 [facility] Comment on above: Performed By: #### C BC ####[facility] Eemguxnxdr6[address] [place] [address]Dr. Airam Deuce MONO # 0.6 103/ul Normal 0.3-0.8 [facility] Comment on above: Performed By: #### C BC ####[facility] Omtxquunjj549[address] [place] [address]Dr. Airam Deuce Monocytes/100 WBC (Bld) 5.7 % Normal 1.7-12.0 [facility] Comment on above: Performed By: #### C BC ####[facility] Nfmmqiagsj5357 [place] [id number]. Airam Tripathi NEUT # 7.8 103/ul Critically high 1.4-6.5 [facility] Comment on above: Performed By: #### C BC ####[facility] Ulaugirelw[address] [place] [address]Dr. Airam Tripathi Neutrophils/100 WBC (Bld) 81.2 % Critically high 43.0-75.0 [facility] Comment on above: Performed By: #### C BC ####[facility] Uvgeocramk7407 [place] [address]Dr. Airam Tripathi Platelet mean volume (Bld) [Entitic vol] 8.6 fL Critically low 9.5-13.5 [facility] Comment on above: Performed By: #### C BC ####[facility] Fqabhfyaqo[address] [place] [address]Dr. Airam Tripathi PLT 283 103/ul Normal 150-450 [facility] Comment on above: Performed By: #### C BC ####[facility] Yzsdqlviyd6087 [place] [address]Dr. Airam Tripathi RBC 2.90 106/ul Critically low 4.20-5.40 [facility] Comment on above: Performed By: #### C BC ####[facility] Prwqgjkfha5968 [place] [address]Dr. Airam Tripathi WBC 9.6 103/ul Normal 4.0-11.0 [facility] Comment on above: Performed By: #### C BC ####[facility] Cnnaggkwqc5415 [place] [address]Dr. Airam Tripathi OSMOLALITYon 06-14-2022 Osmolality [Osmolality] 273 mosm/kg Critically low 275-295 [facility] Comment on above: Performed By: #### O SMO ####[facility] Mujjjdmqaz[address] [place], [place] [address]Dr. Selenaneil Tripathi PROF 14(COMP METB)on 022 Albumin [Mass/Vol] 3.2 g/dL Critically low 3.4-5.0 [facility] Comment on above: Performed By: #### B COPYHOLDER, CMP ####[facility] Cdbgkazfrh00[address] [place] [address]Dr. Airam Tripathi Albumin/Globulin [Mass ratio] 1.0 {ratio} Normal [facility] Comment on above: Performed By: #### B COPYHOLDER, CMP ####[facility] Rgudannjld2620 [place] [phone]. Airam Tripathi ALP [Catalytic activity/Vol] 154 U/L Critically high 46-116 [facility] Comment on above: Performed By: #### B COPYHOLDER, CMP ####[facility] Nsixkhrmth5927 [place] [address]Dr. Airam Tripathi ALT [Catalytic activity/Vol] 17 U/L Normal 14-59 [facility] Comment on above: Performed By: #### B COPYHOLDER, CMP ####[facility] Nkwnwlpuvz9085 [place] [address]Dr. Airam Tripathi Anion gap [Moles/Vol] 12.0 mmol/L Normal [facility] Comment on above: Performed By: #### B COPYHOLDER, CMP ####[facility] Ftuotzmcuu6811 [place] [address]Dr. Airam Tripathi AST [Catalytic activity/Vol] 25 U/L Normal 15-37 [facility] Comment on above: Performed By: #### B COPYHOLDER, CMP ####[facility] Kzkhgngiiw2382 [place] [address]Dr. Airam Tripathi Bilirubin [Mass/Vol] 0.3 mg/dL Normal 0.2-1.0 [facility] Comment on above: Performed By: #### B COPYHOLDER, CMP ####[facility] Flqljmmjgv5474 [place] [phone]. Airam Tripathi Calcium [Mass/Vol] 7.6 mg/dL Critically low 8.5-10.1 [facility] Comment on above: Performed By: #### B COPYHOLDER, CMP ####[facility] Plzzfgyngx9831 [place] [phone]. Airam Tripathi Chloride [Moles/Vol] 92 mmol/L Critically low 98-107 [facility] Comment on above: Performed By: #### B COPYHOLDER, CMP ####[facility] Vexhxmzfnk2315 [place] [phone]. Airam Tripathi CO2 [Moles/Vol] 25.2 mmol/L Normal 21.0-32.0 [facility] Comment on above: Performed By: #### B COPYHOLDER, CMP ####[facility] Zjnciloubc6465 [place] [address]Dr. Airam Tripathi Creatinine [Mass/Vol] 1.83 mg/dL Critically high 0.55-1.02 [facility] Comment on above: Performed By: #### B COPYHOLDER, CMP ####[facility] Csrauxurlc46[address] [place], [place] [address]Dr. Airam Deuce EGFR-AF LUXEMBOURGER 34 mL/min/1.73m2 Critically low >=60 [facility] Comment on above: Performed By: #### B COPYHOLDER, CMP ####[facility] Wrahkvsycg9084[address] [place], [place] [address]Dr. Airam Deuce EGFR-NON AF LUXEMBOURGER 28 mL/min/1.73m2 Critically low >=60 [facility] Comment on above: Performed By: #### B COPYHOLDER, CMP ####[facility] Sphdsssuhl1667[address] [place], [place] [address]Dr. Airam Tripathi Globulin (S) [Mass/Vol] 3.1 g/dL Normal [facility] Comment on above: Performed By: #### B COPYHOLDER, CMP ####[facility] Glklxqandj105[address] [place], [place] [address]Dr. Airam Deuce Glucose [Mass/Vol] 77 mg/dL Normal 74-106 [facility] Comment on above: Performed By: #### B COPYHOLDER, CMP ####[facility] Puuaafqtos[address] [place], [place] [address]Dr. Airam Tripathi Potassium [Moles/Vol] 4.2 mmol/L Normal 3.5-5.1 [facility] Comment on above: Performed By: #### B COPYHOLDER, CMP ####[facility] Bnguisgxpt4[address] [place], [place] [address]Dr. Airam Tripathi Protein [Mass/Vol] 6.3 g/dL Critically low 6.4-8.2 [facility] Comment on above: Performed By: #### B COPYHOLDER, CMP ####[facility] Bkvnfkccex4799[address] [place], [place] [address]Dr. Airam Tripathi Sodium [Moles/Vol] 125 mmol/L Critically low 136-145 [facility] Comment on above: Performed By: #### B COPYHOLDER, CMP ####[facility] Erppxldbeo1605[address] [place], [place] [address]Dr. Airam Tripathi Urea nitrogen [Mass/Vol] 35.0 mg/dL Critically high 7.0-18.0 [facility] Comment on above: Performed By: #### B COPYHOLDER, CMP ####[facility] Uuapgfopws5[address] [place], [place] [address]Dr. Airam Tripathi Urea nitrogen/Creatinine [Mass ratio] 19.1 mg/mg Normal [facility] Comment on above: Performed By: #### B COPYHOLDER, CMP ####[facility] Ftkcdotuan[address] [place], [place] [address]Dr. Airam Tripathi UA RANDOM W/MICROSCOPICon BACTERIA TRACE Abnormal NONE SEEN [facility] Comment on above: Performed By: #### U AMIC ####[facility] Hkgdhnlqhi[address] [place], [place] [address]Dr. Airam Tripathi Bilirubin Ql (U) Negative Normal NEGATIVE [facility] Comment on above: Performed By: #### U AMIC ####[facility] Lmmbamtfqz575[address] [place], [place] [address]Dr. Airam Tripathi CAST NONE SEEN Normal NONE SEEN [facility] Comment on above: Performed By: #### U AMIC ####[facility] Oyqdaobncy26[address] [place], [place] [address]Dr. Airam Tripathi Clarity (U) CLEAR Normal CLEAR [facility] Comment on above: Performed By: #### U AMIC ####[facility] Pcfovcmfkw7036[address] [place], [place] [address]Dr. Airam Tripathi Color (U) LT. YELLOW Normal YELLOW [facility] Comment on above: Performed By: #### U AMIC ####[facility] Bawncvvjkp0604 [place] [address]Dr. Airam Tripathi Crystals LM Nom (Urine sed) NONE SEEN Normal NONE SEEN [facility] Comment on above: Performed By: #### U AMIC ####[facility] Mjogeuvqed9032 [place] [address]Dr. Airam Tripathi Epithelial cells LM Ql (Urine sed) FEW Abnormal NONE SEEN /RARE [facility] Comment on above: Performed By: #### U AMIC ####[facility] Otjgispngy9974[address] [place], [place] [address]Dr. Airam Tripathi Glucose Ql (U) Negative Normal NEGATIVE [facility] Comment on above: Performed By: #### U AMIC ####[facility] Zkdasbdiyr9[address] [place], [place] [address]Dr. Airam Tripathi Hemoglobin Ql (U) Negative Normal NEGATIVE [facility] Comment on above: Performed By: #### U AMIC ####[facility] Omoczypjps34[address] [place], [place] [address]Dr. Airam Tripathi Ketones Ql (U) Negative Normal NEGATIVE [facility] Comment on above: Performed By: #### U AMIC ####[facility] Ymmbnfgqpx7664[address] [place], [place] [address]Dr. Airam Tripathi LEUKOCYTES MODERATE Abnormal NEGATIVE [facility] Comment on above: Performed By: #### U AMIC ####[facility] Dffkottkyl94[address] [place] [address]Dr. Airam Tripathi MUCOUS NONE SEEN Normal NONE SEEN [facility] Comment on above: Performed By: #### U AMIC ####[facility] Clnrersnep5434[address] [place], [place] [address]Dr. Airam Tripathi Nitrite Ql (U) Negative Normal NEGATIVE [facility] Comment on above: Performed By: #### U AMIC ####[facility] Ghditzkgrs396[address] [place], [place] [address]Dr. Airam Tripathi pH (U) 5.5 [pH] Normal 5-9 [facility] Comment on above: Performed By: #### U AMIC ####[facility] Nawxqtjjhv[address] [place], [place] [address]Dr. Airam Tripathi RBC 0-2 Normal 0-2 [facility] Comment on above: Performed By: #### U AMIC ####[facility] Brpfuxymcr3[address] [place] [address]Dr. Selenaneil Deuce SPEC GRAVITY 1.020 Normal 1.005-<=1. 025 [facility] Comment on above: Performed By: #### U AMIC ####[facility] Dgsoqtgucd8582 [place] [address]Dr. Airam Tripathi UA PROTEIN Negative Normal NEGATIVE/ TRACE [facility] Comment on above: Performed By: #### U AMIC ####[facility] Jxnzihmpcr6309 [place] [address]Dr. Airam Tripathi Urobilinogen Qn (U) 0.2 {Ligia'U}/dL Normal 0.2 - 1. 0 [facility] Comment on above: Performed By: #### U AMIC ####[facility] Xlhrvirvbz[address] [place], [place] [address]Dr. Airam Tripathi WBC 5-10 Abnormal NONE SEEN [facility] Comment on above: Performed By: #### U AMIC ####[facility] Hhpfhwllzk4[address] [place] [address]Dr. Selenaneil Tripathi BNPon 2 Natriuretic peptide B (Bld) [Mass/Vol] 1496.0 pg/mL Critically high <=900.0 [facility] Comment on above: Performed By: #### T 4, BNP, MG, TSH, CMADM, CRP, CMP ####[facility] Esvihxqchv7[address] [place] [address]Dr. Airam Tripathi CARDIAC CONSUELO 3-6on 2 CK [Catalytic activity/Vol] 125 U/L Normal 26-192 [facility] Comment on above: Performed By: #### C MREP ####[facility] Mrowtddeow2448 [place] [address]Dr. Airam Tripathi CK.MB [Mass/Vol] ng/mL Normal <=3.60 [facility] Comment on above: Performed By: #### C MREP ####[facility] Gdldvlzcrl55[address] [place] [address]Dr. Selenaneil Deuce HSTROP 5.8 pg/mL Normal 4.0-51.3 [facility] Comment on above: Result Comment: CUT- OFF POINTS HAVE BEEN ESTABLISHED BASED ON THE FOURTH UNIVERSAL DEFINITIONS OF MYOCARDIALINFARCTION. THE UPPER REFERENCE LIMIT (URL) OF TROPONIN, DEFINED THE 99TH PERCENTILE OFcTnI DISTRIBUTION IN A REFERENCE POPULATION, HAS BEEN CONFIRMED THE DECISION THRESHOLDFOR [place] DIAGNOSIS. Performed By: #### C MREP ####[facility] Mdvqgaszeg[address] [place] [address]Dr. Airam Tripathi CARDIAC CONSUELO ADMITon 06-13- 022 CK [Catalytic activity/Vol] 121 U/L Normal 26-192 [facility] Comment on above: Performed By: #### T 4, BNP, MG, TSH, CMADM, CRP, CMP ####[facility] Tgrdatloss6696 [place] [address]Dr. Airam Tripathi CK.MB [Mass/Vol] 3.06 ng/mL Normal <=3.60 [facility] Comment on above: Performed By: #### T 4, BNP, MG, TSH, CMADM, CRP, CMP ####[facility] Hzztrbjjsy[address] [place] [address]Dr. Airam Tripathi HSTROP 6.9 pg/mL Normal 4.0-51.3 [facility] Comment on above: Result Comment: CUT- OFF POINTS HAVE BEEN ESTABLISHED BASED ON THE FOURTH UNIVERSAL DEFINITIONS OF MYOCARDIALINFARCTION. THE UPPER REFERENCE LIMIT (URL) OF TROPONIN, DEFINED THE 99TH PERCENTILE OFcTnI DISTRIBUTION IN A REFERENCE POPULATION, HAS BEEN CONFIRMED THE DECISION THRESHOLDFOR [place] DIAGNOSIS. Performed By: #### T 4, BNP, MG, TSH, CMADM, CRP, CMP ####[facility] Spirayaybh35[address] [place] [address]Dr. Airam Tripathi KATHY 124 ng/mL Critically high 9-82 [facility] Comment on above: Performed By: #### T 4, BNP, MG, TSH, CMADM, CRP, CMP ####[facility] Zuwakxcmgl9497 [place] [address]Dr. Airam Tripathi CBC AUTO DIFFon 06-13-2022 BASO # 0.0 103/ul Normal 0.0-0.1 [facility] Comment on above: Performed By: #### C BC ####[facility] Oeeikwubqr4185 [place] [phone]. Airam Tripathi Basophils/100 WBC (Bld) 0.2 % Normal 0.2-2.0 [facility] Comment on above: Performed By: #### C BC ####[facility] Xtjotqhbna2464 [place] [id number]. Airam Tripathi EO # 0.2 103/ul Normal 0.0-0.7 [facility] Comment on above: Performed By: #### C BC ####[facility] Ulcirkumqh[address] [place], [place] [address]Dr. Airam Tripathi Eosinophils/100 WBC (Bld) 1.5 % Normal 0.9-7.0 [facility] Comment on above: Performed By: #### C BC ####[facility] Ikuajmijuf[address] [place], [place] [address]Dr. Airam Tripathi Erythrocyte distribution width (RBC) [Ratio] 12.7 % Normal 11.0-15.0 [facility] Comment on above: Performed By: #### C BC ####[facility] Hgskdqkaoo1938 [place] [phone]. Airam Tripathi Hematocrit (Bld) [Volume fraction] 30.0 % Critically low 36.0-48.0 [facility] Comment on above: Performed By: #### C BC ####[facility] Hnmkejaoti[address] [place], [place] [address]Dr. Airam Tripathi Hemoglobin (Bld) [Mass/Vol] 9.6 g/dL Critically low 12.0-16.0 [facility] Comment on above: Performed By: #### C BC ####[facility] Liucshjppz1223 [place] [phone]. Airam Tripathi IG # 0.11 10e3/ul Critically high 0.00-0.03 [facility] Comment on above: Performed By: #### C BC ####[facility] Eadqikgmgo7436 [place] [phone]. Airam Tripathi IG % 1.1 % Critically high 0.0-0.5 [facility] Comment on above: Performed By: #### C BC ####[facility] Ydbqoawcco8356 [place] [phone]. Airam Tripathi LYMPH # 1.5 103/ul Normal 1.2-3.8 [facility] Comment on above: Performed By: #### C BC ####[facility] Awzxffgpbl0733 [place] [phone]. Airam Tripathi Lymphocytes/100 WBC (Bld) 14.9 % Critically low 20.5-60.0 [facility] Comment on above: Performed By: #### C BC ####[facility] Vudrhmpidv13[address] [place] [address]Dr. Airam Deuce MANUAL DIFF REQ NO Normal [facility] Comment on above: Performed By: #### C BC ####[facility] Boblbiyrta28[address] [place] [address]Dr. Airam Tripathi MCH (RBC) [Entitic mass] 30.0 pg Normal 26.7-34.0 [facility] Comment on above: Performed By: #### C BC ####[facility] Fkcaxkhdmw0837 [place] [address]Dr. Airam Tripathi MCHC (RBC) [Mass/Vol] 32.0 g/dL Normal 29.9-35.2 [facility] Comment on above: Performed By: #### C BC ####[facility] Nrrjfyaeor4779 [place] [address]Dr. Airam Tripathi MCV (RBC) [Entitic vol] 93.8 fL Normal 81.0-99.0 [facility] Comment on above: Performed By: #### C BC ####[facility] Udimitzorz[address] [place], [place] [address]Dr. Airam Deuce MONO # 0.8 103/ul Normal 0.3-0.8 [facility] Comment on above: Performed By: #### C BC ####[facility] Zmhmzzhafk4371 [place] [phone]. Airam Tripathi Monocytes/100 WBC (Bld) 7.3 % Normal 1.7-12.0 [facility] Comment on above: Performed By: #### C BC ####[facility] Xfrcsyidwq23[address] [place] [address]Dr. Airam Tripathi NEUT # 7.8 103/ul Critically high 1.4-6.5 [facility] Comment on above: Performed By: #### C BC ####[facility] Mrudzytnqv5884 [place] [address]Dr. Airam Tripathi Neutrophils/100 WBC (Bld) 75.0 % Normal 43.0-75.0 [facility] Comment on above: Performed By: #### C BC ####[facility] Rkcyohfmul5982 [place] [address]Dr. Airam Tripathi Platelet mean volume (Bld) [Entitic vol] 9.1 fL Critically low 9.5-13.5 [facility] Comment on above: Performed By: #### C BC ####[facility] Tpbrwmntme[address] [place], [place] [address]Dr. Airam Tripathi PLT 341 103/ul Normal 150-450 [facility] Comment on above: Performed By: #### C BC ####[facility] Gvrgrmhcfp[address] [place], [place] [address]Dr. Airam Tripathi RBC 3.20 106/ul Critically low 4.20-5.40 [facility] Comment on above: Performed By: #### C BC ####[facility] Elzgskpdti89[address] [place], [place] [address]Dr. Airam Tripathi WBC 10.4 103/ul Normal 4.0-11.0 [facility] Comment on above: Performed By: #### C BC ####[facility] Rghncyxhye[address] [place], [place] [address]Dr. Airam Tripathi CRPon 06-13-2022 CRP [Mass/Vol] mg/L Normal <=1.0 [facility] Comment on above: Performed By: #### T 4, BNP, MG, TSH, CMADM, CRP, CMP ####[facility] Vxiievqxtu[address] [place] [phone]. Airam Tripathi CT HEAD WO CONon 06-13-2022 CT HEAD WO CON Normal [facility] Covid-19 PCR (CVDTB)on 05-26 SARS-CoV-2 (COVID-19) RNA MIKE+probe Ql (Unsp spec) Not detected Normal NOT DETECTED [facility] Comment on above: Result Comment: When [...] for this test is supported by the [employer] and Human Service's declaration that [...] be used). Performed By: #### C VDTBH ####[facility] Xmkziwbymo2487 [place] [phone]. Airam Tripathi LACTATE/LACTIC ACIDon 2021 Lactate [Moles/Vol] 0.5 mmol/L Normal 0.4-1.9 [facility] Comment on above: Performed By: #### L ACT ####[facility] Hgiuojmxnb1517 [place] [phone]. Airam Tripathi MAGNESIUMon 06-13-2022 Magnesium [Mass/Vol] 1.9 mg/dL Normal 1.8-2.4 [facility] Comment on above: Performed By: #### T 4, BNP, MG, TSH, CMADM, CRP, CMP ####[facility] Rzhhrmxyxs8[address] [place] [phone]. Airam Tripathi PROF 14(COMP METB)on 022 Albumin [Mass/Vol] 3.8 g/dL Normal 3.4-5.0 [facility] Comment on above: Performed By: #### T 4, BNP, MG, TSH, CMADM, CRP, CMP ####[facility] Zexansedgo[address]384 [place] [address]Dr. Airam Tripathi Albumin/Globulin [Mass ratio] 1.1 {ratio} Normal [facility] Comment on above: Performed By: #### T 4, BNP, MG, TSH, CMADM, CRP, CMP ####[facility] Qabszbfgdq9162 [place] [address]Dr. Airam Tripathi ALP [Catalytic activity/Vol] 161 U/L Critically high 46-116 [facility] Comment on above: Performed By: #### T 4, BNP, MG, TSH, CMADM, CRP, CMP ####[facility] Akavetcavz[address] [place] [address]Dr. Airam Tripathi ALT [Catalytic activity/Vol] 21 U/L Normal 14-59 [facility] Comment on above: Performed By: #### T 4, BNP, MG, TSH, CMADM, CRP, CMP ####[facility] Qikuxidmob5937 [place] [address]Dr. Airam Tripathi Anion gap [Moles/Vol] 12.6 mmol/L Normal [facility] Comment on above: Performed By: #### T 4, BNP, MG, TSH, CMADM, CRP, CMP ####[facility] Dpqagzvuij2896 [place] [address]Dr. Airam Tripathi AST [Catalytic activity/Vol] 30 U/L Normal 15-37 [facility] Comment on above: Performed By: #### T 4, BNP, MG, TSH, CMADM, CRP, CMP ####[facility] Ygojoawbzn[address] [place] [address]Dr. Airam Tripathi Bilirubin [Mass/Vol] 0.3 mg/dL Normal 0.2-1.0 [facility] Comment on above: Performed By: #### T 4, BNP, MG, TSH, CMADM, CRP, CMP ####[facility] Hnqjxsiplu46[address] [place] [address]Dr. Airam Tripathi Calcium [Mass/Vol] 8.8 mg/dL Normal 8.5-10.1 [facility] Comment on above: Performed By: #### T 4, BNP, MG, TSH, CMADM, CRP, CMP ####[facility] Crqlqounti[address] [place] [address]Dr. Airam Tripathi Chloride [Moles/Vol] 91 mmol/L Critically low 98-107 [facility] Comment on above: Performed By: #### T 4, BNP, MG, TSH, CMADM, CRP, CMP ####[facility] Rxyieorlhs[address] [place], [place] [address]Dr. Airam Tripathi CO2 [Moles/Vol] 26.9 mmol/L Normal 21.0-32.0 [facility] Comment on above: Performed By: #### T 4, BNP, MG, TSH, CMADM, CRP, CMP ####[facility] Udibfyplgj[address] [place], [place] [address]Dr. Airam Tripathi Creatinine [Mass/Vol] 1.83 mg/dL Critically high 0.55-1.02 [facility] Comment on above: Performed By: #### T 4, BNP, MG, TSH, CMADM, CRP, CMP ####[facility] Uzbophacmi[address] [place], [place] [address]Dr. Airam Tripathi EGFR-AF LUXEMBOURGER 34 mL/min/1.73m2 Critically low >=60 [facility] Comment on above: Performed By: #### T 4, BNP, MG, TSH, CMADM, CRP, CMP ####[facility] Yodzyaktzu[address] [place], [place] [address]Dr. Airam Tripathi EGFR-NON AF LUXEMBOURGER 28 mL/min/1.73m2 Critically low >=60 [facility] Comment on above: Performed By: #### T 4, BNP, MG, TSH, CMADM, CRP, CMP ####[facility] Alzjecwipo[address] [place], [place] [address]Dr. Airam Tripathi Globulin (S) [Mass/Vol] 3.5 g/dL Normal [facility] Comment on above: Performed By: #### T 4, BNP, MG, TSH, CMADM, CRP, CMP ####[facility] Bfirgvpybi[address] [place] [address]Dr. Airam Tripathi Glucose [Mass/Vol] 96 mg/dL Normal 74-106 [facility] Comment on above: Performed By: #### T 4, BNP, MG, TSH, CMADM, CRP, CMP ####[facility] Ioozknsyyy224[address] [place], [place] [address]Dr. Selenalan Tripathi Potassium [Moles/Vol] 4.5 mmol/L Normal 3.5-5.1 [facility] Comment on above: Performed By: #### T 4, BNP, MG, TSH, CMADM, CRP, CMP ####[facility] Zhozucyeou16[address] [place], [place] [address]Dr. Airam Tripathi Protein [Mass/Vol] 7.3 g/dL Normal 6.4-8.2 [facility] Comment on above: Performed By: #### T 4, BNP, MG, TSH, CMADM, CRP, CMP ####[facility] Rjkjmduhfv364[address] [place], [place] [address]Dr. Selenalan Tripathi Sodium [Moles/Vol] 126 mmol/L Critically low 136-145 [facility] Comment on above: Performed By: #### T 4, BNP, MG, TSH, CMADM, CRP, CMP ####[facility] Sdblsbvqkc[address] [place], [place] [address]Dr. Selenalan Tripathi Urea nitrogen [Mass/Vol] 34.0 mg/dL Critically high 7.0-18.0 [facility] Comment on above: Performed By: #### T 4, BNP, MG, TSH, CMADM, CRP, CMP ####[facility] Lklcmbpskn226[address] [place], [place] [address]Dr. Airam Tripathi Urea nitrogen/Creatinine [Mass ratio] 18.6 mg/mg Normal [facility] Comment on above: Performed By: #### T 4, BNP, MG, TSH, CMADM, CRP, CMP ####[facility] Psmveorxic4110[address] [place], [place] [address]Dr. Yilan Tripathi Albumin [Mass/Vol] 3.4 g/dL Normal 3.4-5.0 [facility] Comment on above: Performed By: #### C MP ####[facility] Ioolrqjxva[address] [place] [address]Dr. Airam Tripathi Albumin/Globulin [Mass ratio] 1.0 {ratio} Normal [facility] Comment on above: Performed By: #### C MP ####[facility] Sobwlbbydd[address] [place] [address]Dr. Airam Tripathi ALP [Catalytic activity/Vol] 151 U/L Critically high 46-116 [facility] Comment on above: Performed By: #### C MP ####[facility] Bmwzcpyxyv93[address] [place], [place] [address]Dr. Airam Deuce ALT [Catalytic activity/Vol] 20 U/L Normal 14-59 [facility] Comment on above: Performed By: #### C MP ####[facility] Wdrezebcam16[address] [place], [place] [address]Dr. Airam Deuce Anion gap [Moles/Vol] 11.7 mmol/L Normal [facility] Comment on above: Performed By: #### C MP ####[facility] Zvtvmmsshe238[address] [place], [place] [address]Dr. Airam Deuce AST [Catalytic activity/Vol] 28 U/L Normal 15-37 [facility] Comment on above: Performed By: #### C MP ####[facility] Ioeutzlgvq[address] [place] [address]Dr. Airam Deuce Bilirubin [Mass/Vol] 0.3 mg/dL Normal 0.2-1.0 [facility] Comment on above: Performed By: #### C MP ####[facility] Rrnelolwbb[address] [place] [id number]. Airam Deuce Calcium [Mass/Vol] 8.5 mg/dL Normal 8.5-10.1 [facility] Comment on above: Performed By: #### C MP ####[facility] Qyiwbatpvv9246 [place] [id number]. Airam Deuce Chloride [Moles/Vol] 91 mmol/L Critically low 98-107 [facility] Comment on above: Performed By: #### C MP ####[facility] Sdolimbuom[address] [place] [address]Dr. Airam Tripathi CO2 [Moles/Vol] 28.3 mmol/L Normal 21.0-32.0 [facility] Comment on above: Performed By: #### C MP ####[facility] Izszoagguq4[address] [place] [address]Dr. Airam Deuce Creatinine [Mass/Vol] 1.68 mg/dL Critically high 0.55-1.02 [facility] Comment on above: Performed By: #### C MP ####[facility] Jckmmunxtf[address] [place] [address]Dr. Airam Deuce EGFR-AF LUXEMBOURGER 38 mL/min/1.73m2 Critically low >=60 [facility] Comment on above: Performed By: #### C MP ####[facility] Covnvwvwta[address] [place] [address]Dr. Airam Deuce EGFR-NON AF LUXEMBOURGER 31 mL/min/1.73m2 Critically low >=60 [facility] Comment on above: Performed By: #### C MP ####[facility] Kjyxqrtejo[address] [place], [place] [address]Dr. Airam Deuce Globulin (S) [Mass/Vol] 3.5 g/dL Normal [facility] Comment on above: Performed By: #### C MP ####[facility] Dhymlehwib[address] [place] [address]Dr. Airam Tripathi Glucose [Mass/Vol] 74 mg/dL Normal 74-106 [facility] Comment on above: Performed By: #### C MP ####[facility] Mriveepdyq5766 [place] [id number]. Airam Deuce Potassium [Moles/Vol] 4.0 mmol/L Normal 3.5-5.1 [facility] Comment on above: Performed By: #### C MP ####[facility] Qcotslvwlp0745 [place] [id number]. iAram Tripathi Protein [Mass/Vol] 6.9 g/dL Normal 6.4-8.2 [facility] Comment on above: Performed By: #### C MP ####[facility] Bzldhtxoqv[address] [place] [address]Dr. Airam Tripathi Sodium [Moles/Vol] 127 mmol/L Critically low 136-145 [facility] Comment on above: Performed By: #### C MP ####[facility] Qizsfmmugt3[address] [place] [address]Dr. Airam Tripathi Urea nitrogen [Mass/Vol] 29.0 mg/dL Critically high 7.0-18.0 [facility] Comment on above: Performed By: #### C MP ####[facility] Bkiyxklhkz2417[address] [place], [place] [address]Dr. Airam Tripathi Urea nitrogen/Creatinine [Mass ratio] 17.3 mg/mg Normal [facility] Comment on above: Performed By: #### C MP ####[facility] Sbogqtjaug27[address] [place], [place] [address]Dr. Airam Tripathi T4on 06-13-2022 T4 [Mass/Vol] 6.80 ug/dL Normal 4.80-13.90 [facility] Comment on above: Performed By: #### T 4, BNP, MG, TSH, CMADM, CRP, CMP ####[facility] Hwwcgfjnje758[address] [place], [place] [address]Dr. Airam Tripathi TSHon 06-13-2022 TSH 0.101 uIU/mL Critically low 0.358-3.74 0 [facility] Comment on above: Performed By: #### T 4, BNP, MG, TSH, CMADM, CRP, CMP ####[facility] Vosuyzsdbz7964[address] [place], [place] [address]Dr. Airam Tripathi OSMOLALITYon 06-08-2022 Osmolality [Osmolality] 272 mosm/kg Critically low 275-295 [facility] Comment on above: Performed By: #### O SMO ####[facility] Wpjeojdpsr8620[address] [place], [place] [address]Dr. Airam Tripathi CBC AUTO DIFFon 06-06-2022 BASO # 0.0 103/ul Normal 0.0-0.1 [facility] Comment on above: Performed By: #### C BC ####[facility] Bloomzanzg[address] [place] [id number]. Airam Tripathi Basophils/100 WBC (Bld) 0.3 % Normal 0.2-2.0 [facility] Comment on above: Performed By: #### C BC ####[facility] Szvhwfzaan[address] [place], [place] [address]Dr. Airam Tripathi EO # 0.2 103/ul Normal 0.0-0.7 [facility] Comment on above: Performed By: #### C BC ####[facility] Cziuskvdzq6567[address] [place], [place] [address]Dr. Airam Tripathi Eosinophils/100 WBC (Bld) 2.5 % Normal 0.9-7.0 [facility] Comment on above: Performed By: #### C BC ####[facility] Vjormdudqw9[address] [place], [place] [address]Dr. Airam Tripathi Erythrocyte distribution width (RBC) [Ratio] 12.9 % Normal 11.0-15.0 [facility] Comment on above: Performed By: #### C BC ####[facility] Omyrckdiax[address] [place], [place] [address]Dr. Airam Tripathi Hematocrit (Bld) [Volume fraction] 29.8 % Critically low 36.0-48.0 [facility] Comment on above: Performed By: #### C BC ####[facility] Bjbtpdilkf[address] [place], [place] [address]Dr. Airam Tripathi Hemoglobin (Bld) [Mass/Vol] 9.7 g/dL Critically low 12.0-16.0 [facility] Comment on above: Performed By: #### C BC ####[facility] Zqzwazwpqu30[address] [place], [place] [address]Dr. Airam Tripathi IG # 0.03 10e3/ul Normal 0.00-0.03 [facility] Comment on above: Performed By: #### C BC ####[facility] Moetofftgp4540[address] [place], [place] [address]Dr. Airam Tripathi IG % 0.3 % Normal 0.0-0.5 [facility] Comment on above: Performed By: #### C BC ####[facility] Xdoezgwqgf[address] [place] [address]Dr. Airam Deuce LYMPH # 1.3 103/ul Normal 1.2-3.8 [facility] Comment on above: Performed By: #### C BC ####[facility] Elvvxupmmv7[address] [place] [id number]. Airam Tripathi Lymphocytes/100 WBC (Bld) 14.6 % Critically low 20.5-60.0 [facility] Comment on above: Performed By: #### C BC ####[facility] Plpbwkryvy3254[address] [place], [place] [address]Dr. Airam Tripathi MANUAL DIFF REQ NO Normal [facility] Comment on above: Performed By: #### C BC ####[facility] Lhxuzrkflx[address] [place], [place] [address]Dr. Airam Tripathi MCH (RBC) [Entitic mass] 30.6 pg Normal 26.7-34.0 [facility] Comment on above: Performed By: #### C BC ####[facility] Aghqmgtlyi[address] [place], [place] [address]Dr. Selenaneil Tripathi MCHC (RBC) [Mass/Vol] 32.6 g/dL Normal 29.9-35.2 [facility] Comment on above: Performed By: #### C BC ####[facility] Hggayseikj[address] [place], [place] [address]DrKianna Tripathi MCV (RBC) [Entitic vol] 94.0 fL Normal 81.0-99.0 [facility] Comment on above: Performed By: #### C BC ####[facility] Obhfecvxnq17[address] [place], [place] [address]DrKianna Tripathi MONO # 0.5 103/ul Normal 0.3-0.8 [facility] Comment on above: Performed By: #### C BC ####[facility] Zhopklqhkv80[address] [place] [id number] Tripathi Monocytes/100 WBC (Bld) 5.7 % Normal 1.7-12.0 [facility] Comment on above: Performed By: #### C BC ####[facility] Syynvribpx[address] [place] [id number] Airam Tripathi NEUT # 6.9 103/ul Critically high 1.4-6.5 [facility] Comment on above: Performed By: #### C BC ####[facility] Ywrylnspsl6805 [place] [id number] Tripathi Neutrophils/100 WBC (Bld) 76.6 % Critically high 43.0-75.0 [facility] Comment on above: Performed By: #### C BC ####[facility] Glylqxhohm[address] [place] [address]DrKianna Tripathi Platelet mean volume (Bld) [Entitic vol] 9.2 fL Critically low 9.5-13.5 [facility] Comment on above: Performed By: #### C BC ####[facility] Vkamsgeqqd98[address] [place] [address]DrKianna Tripathi PLT 271 103/ul Normal 150-450 [facility] Comment on above: Performed By: #### C BC ####[facility] Qlrmqkqydb4[address] [place] [address]DrKianna Tripathi RBC 3.17 106/ul Critically low 4.20-5.40 [facility] Comment on above: Performed By: #### C BC ####[facility] Dmmyurzwil[address] [place] [address]DrKianna Tripathi WBC 9.1 103/ul Normal 4.0-11.0 [facility] Comment on above: Performed By: #### C BC ####[facility] Pzcodgihbw45[address] [place] [id number] Tripathi PROF 14(COMP METB)on 022 Albumin [Mass/Vol] 3.4 g/dL Normal 3.4-5.0 [facility] Comment on above: Performed By: #### C MP ####[facility] Rynrjctbyh[address] [place] [address]DrKianna Tripathi Albumin/Globulin [Mass ratio] 1.0 {ratio} Normal [facility] Comment on above: Performed By: #### C MP ####[facility] Mqtrrnrurw75[address] [place] [address]Dr. Airam Tripathi ALP [Catalytic activity/Vol] 156 U/L Critically high 46-116 [facility] Comment on above: Performed By: #### C MP ####[facility] Zwklnfbuiw8356 [place] [address]Dr. Airam Deuce ALT [Catalytic activity/Vol] 18 U/L Normal 14-59 [facility] Comment on above: Performed By: #### C MP ####[facility] Lmrassnazp9299 [place] [address]Dr. Airam Tripathi Anion gap [Moles/Vol] 10.8 mmol/L Normal [facility] Comment on above: Performed By: #### C MP ####[facility] Vgcizycueq4[address] [place], [place] [address]Dr. Airam Tripathi AST [Catalytic activity/Vol] 27 U/L Normal 15-37 [facility] Comment on above: Performed By: #### C MP ####[facility] Ijwailufvl98[address] [place] [address]Dr. Airam Tripathi Bilirubin [Mass/Vol] 0.2 mg/dL Normal 0.2-1.0 [facility] Comment on above: Performed By: #### C MP ####[facility] Nffnemputp86[address] [place] [address]Dr. Airam Tripathi Calcium [Mass/Vol] 8.1 mg/dL Critically low 8.5-10.1 [facility] Comment on above: Performed By: #### C MP ####[facility] Gihotbnczm45[address] [place] [address]Dr. Airam Tripathi Chloride [Moles/Vol] 92 mmol/L Critically low 98-107 [facility] Comment on above: Performed By: #### C MP ####[facility] Tvhsohnxpu16[address] [place] [address]Dr. Airam Tripathi CO2 [Moles/Vol] 27.4 mmol/L Normal 21.0-32.0 [facility] Comment on above: Performed By: #### C MP ####[facility] Rzxjfsghgn4554 [place] [id number]. Airam Tripathi Creatinine [Mass/Vol] 1.57 mg/dL Critically high 0.55-1.02 [facility] Comment on above: Performed By: #### C MP ####[facility] Fjnsvwdemq88[address] [place] [phone]. Airam Tripathi EGFR-AF LUXEMBOURGER 41 mL/min/1.73m2 Critically low >=60 [facility] Comment on above: Performed By: #### C MP ####[facility] Wmqbxedunt6386 [place] [phone]. Airam Tripathi EGFR-NON AF LUXEMBOURGER 34 mL/min/1.73m2 Critically low >=60 [facility] Comment on above: Performed By: #### C MP ####[facility] Hximasbhxh16[address] [place] [address]Dr. Airam Tripathi Globulin (S) [Mass/Vol] 3.4 g/dL Normal [facility] Comment on above: Performed By: #### C MP ####[facility] Vjhiqlynms5763 [place] [address]Dr. Airam Tripathi Glucose [Mass/Vol] 82 mg/dL Normal 74-106 [facility] Comment on above: Performed By: #### C MP ####[facility] Syelrlmagm9537 [place] [address]Dr. Airam Tripathi Potassium [Moles/Vol] 4.2 mmol/L Normal 3.5-5.1 [facility] Comment on above: Performed By: #### C MP ####[facility] Wtkjdihdko0140 [place] [id number]. Airam Tripathi Protein [Mass/Vol] 6.8 g/dL Normal 6.4-8.2 [facility] Comment on above: Performed By: #### C MP ####[facility] Kvdjtxkzkf7[address] [place] [address]Dr. Airam Tripathi Sodium [Moles/Vol] 126 mmol/L Critically low 136-145 [facility] Comment on above: Performed By: #### C MP ####[facility] Putiawxdwp6019 [place] [address]Dr. Airam Tripathi Urea nitrogen [Mass/Vol] 35.0 mg/dL Critically high 7.0-18.0 [facility] Comment on above: Performed By: #### C MP ####[facility] Krqjdohgtj11[address] [place], [place] [address]Dr. Airam Tripathi Urea nitrogen/Creatinine [Mass ratio] 22.3 mg/mg Normal [facility] Comment on above: Performed By: #### C MP ####[facility] Izwppstmwj3548[address] [place], [place] [address]Dr. Airam Tripathi OSMOLALITYon 06-02-2022 Osmolality [Osmolality] 276 mosm/kg Normal 275-295 [facility] Comment on above: Performed By: #### O SMO ####[facility] Cuoqbxrige208[address] [place], [place] [address]Dr. Airam Tripathi CBC AUTO DIFFon 06-01-2022 BASO # 0.1 103/ul Normal 0.0-0.1 [facility] Comment on above: Performed By: #### C BC ####[facility] Sfpomaslbi20[address] [place], [place] [address]Dr. Airam Tripathi Basophils/100 WBC (Bld) 0.7 % Normal 0.2-2.0 [facility] Comment on above: Performed By: #### C BC ####[facility] Ftajsbkimz[address] [place], [place] [address]Dr. Airam Tripathi EO # 0.3 103/ul Normal 0.0-0.7 [facility] Comment on above: Performed By: #### C BC ####[facility] Npsutphvgi7360[address] [place], [place] [address]Dr. Airam Tripathi Eosinophils/100 WBC (Bld) 3.3 % Normal 0.9-7.0 [facility] Comment on above: Performed By: #### C BC ####[facility] Jqwpqlkdtf835[address] [place], [place] [address]Dr. Airam Tripathi Erythrocyte distribution width (RBC) [Ratio] 13.2 % Normal 11.0-15.0 [facility] Comment on above: Performed By: #### C BC ####[facility] Xzltxaoege6270 [place] [address]DrKianna Tripathi Hematocrit (Bld) [Volume fraction] 32.0 % Critically low 36.0-48.0 [facility] Comment on above: Performed By: #### C BC ####[facility] Twyocnxipt750[address] [place], [place] [address]DrKianna Tripathi Hemoglobin (Bld) [Mass/Vol] 10.3 g/dL Critically low 12.0-16.0 [facility] Comment on above: Performed By: #### C BC ####[facility] Cdrdgiiree034[address] [place], [place] [address]DrKianna Tripathi IG # 0.05 10e3/ul Critically high 0.00-0.03 [facility] Comment on above: Performed By: #### C BC ####[facility] Glwqttjzom1844[address] [place], [place] [address]DrKianna Tripathi IG % 0.7 % Critically high 0.0-0.5 [facility] Comment on above: Performed By: #### C BC ####[facility] Azajjzniuk23[address] [place], [place] [address]DrKianna Tripathi LYMPH # 1.7 103/ul Normal 1.2-3.8 [facility] Comment on above: Performed By: #### C BC ####[facility] Zrmsbhceaz5384[address] [place], [place] [address]DrKianna Tripathi Lymphocytes/100 WBC (Bld) 22.6 % Normal 20.5-60.0 [facility] Comment on above: Performed By: #### C BC ####[facility] Ekubbskqqk7258[address] [place], [place] [address]DrKianna Tripathi MANUAL DIFF REQ NO Normal [facility] Comment on above: Performed By: #### C BC ####[facility] Pdrnoruhkf[address] [place], [place] [address]DrKianna rTipathi MCH (RBC) [Entitic mass] 30.8 pg Normal 26.7-34.0 [facility] Comment on above: Performed By: #### C BC ####[facility] Emkharmqpb5[address] [place] [address]Dr. Airam Tripathi MCHC (RBC) [Mass/Vol] 32.2 g/dL Normal 29.9-35.2 [facility] Comment on above: Performed By: #### C BC ####[facility] Bjmoellavh7830 [place] [address]Dr. Airam Tripathi MCV (RBC) [Entitic vol] 95.8 fL Normal 81.0-99.0 [facility] Comment on above: Performed By: #### C BC ####[facility] Mskkqohxsp39[address] [place], [place] [address]Dr. Airam Tripathi MONO # 0.6 103/ul Normal 0.3-0.8 [facility] Comment on above: Performed By: #### C BC ####[facility] Gjjdlslhai[address] [place], [place] [address]Dr. Airam Tripathi Monocytes/100 WBC (Bld) 8.6 % Normal 1.7-12.0 [facility] Comment on above: Performed By: #### C BC ####[facility] Owjebotswa248[address] [place], [place] [address]Dr. Airam Tripathi NEUT # 4.8 103/ul Normal 1.4-6.5 [facility] Comment on above: Performed By: #### C BC ####[facility] Uysbjqvtdu42[address] [place], [place] [address]Dr. Airam Tripathi Neutrophils/100 WBC (Bld) 64.1 % Normal 43.0-75.0 [facility] Comment on above: Performed By: #### C BC ####[facility] Fycmddbjbo[address] [place], [place] [address]Dr. Airam Tripathi Platelet mean volume (Bld) [Entitic vol] 10.0 fL Normal 9.5-13.5 [facility] Comment on above: Performed By: #### C BC ####[facility] Smpanzuesg[address] [place], [place] [address]Dr. Airam Tripathi PLT 322 103/ul Normal 150-450 [facility] Comment on above: Performed By: #### C BC ####[facility] Xvxvksxhjs3[address] [place] [address]Dr. Selenaneil Deuce RBC 3.34 106/ul Critically low 4.20-5.40 [facility] Comment on above: Performed By: #### C BC ####[facility] Shlvgvxfwu8535 [place] [id number] Tripathi WBC 7.5 103/ul Normal 4.0-11.0 [facility] Comment on above: Performed By: #### C BC ####[facility] Mzxwmfrrbl6964 [place] [address]DrKianna Tripathi PROF 14(COMP METB)on 022 Albumin [Mass/Vol] 3.5 g/dL Normal 3.4-5.0 [facility] Comment on above: Performed By: #### C MP ####[facility] Mmqiuhuxfr[address] [place] [address]DrKianna Tripathi Albumin/Globulin [Mass ratio] 1.1 {ratio} Normal [facility] Comment on above: Performed By: #### C MP ####[facility] Mfkrpvmikg[address] [place] [place] [address]DrKianna Tripathi ALP [Catalytic activity/Vol] 167 U/L Critically high 46-116 [facility] Comment on above: Performed By: #### C MP ####[facility] Jlbwbdpaem8267 [place] [address]DrKianna Tripathi ALT [Catalytic activity/Vol] 24 U/L Normal 14-59 [facility] Comment on above: Performed By: #### C MP ####[facility] Lakucebilr9643 [place] [id number] Tripathi Anion gap [Moles/Vol] 14.1 mmol/L Normal Th e [facility] Comment on above: Performed By: #### C MP ####[facility] Jcvrmtyudv5615 [place] [id number] Tripathi AST [Catalytic activity/Vol] 27 U/L Normal 15-37 [facility] Comment on above: Performed By: #### C MP ####[facility] Yjekdqtliy5312 [place] [id number]. Airam Tripathi Bilirubin [Mass/Vol] 0.3 mg/dL Normal 0.2-1.0 [facility] Comment on above: Performed By: #### C MP ####[facility] Trvixsckro8584 [place] [id number]. Airam Tripathi Calcium [Mass/Vol] 8.0 mg/dL Critically low 8.5-10.1 Th e [facility] Comment on above: Performed By: #### C MP ####[facility] Syrkbkncdq2776 [place] [address]Dr. Airam Tripathi Chloride [Moles/Vol] 96 mmol/L Critically low 98-107 [facility] Comment on above: Performed By: #### C MP ####[facility] Tbborlfurp2687[address] [place], [place] [address]Dr. Airam Deuce CO2 [Moles/Vol] 24.6 mmol/L Normal 21.0-32.0 [facility] Comment on above: Performed By: #### C MP ####[facility] Mearokqqtj27[address] [place], [place] [address]Dr. Airam Deuce Creatinine [Mass/Vol] 1.79 mg/dL Critically high 0.55-1.02 [facility] Comment on above: Performed By: #### C MP ####[facility] Gcgbuymjkl8110 [place] [address]Dr. Airam Deuce EGFR-AF LUXEMBOURGER 35 mL/min/1.73m2 Critically low >=60 [facility] Comment on above: Performed By: #### C MP ####[facility] Vfvlcaatev6199 [place] [id number]. Airam Deuce EGFR-NON AF LUXEMBOURGER 29 mL/min/1.73m2 Critically low >=60 [facility] Comment on above: Performed By: #### C MP ####[facility] Mfwsxyjmvr[address] [place], [place] [id number]. Airam Tripathi Globulin (S) [Mass/Vol] 3.3 g/dL Normal [facility] Comment on above: Performed By: #### C MP ####[facility] Mwnilymbap2500 [place] [address]Dr. Airam Tripathi Glucose [Mass/Vol] 58 mg/dL Critically low 74-106 [facility] Comment on above: Performed By: #### C MP ####[facility] Rkhthbnedc8790 [place] [address]Dr. Airam Deuce Potassium [Moles/Vol] 4.7 mmol/L Normal 3.5-5.1 [facility] Comment on above: Performed By: #### C MP ####[facility] Juthuryehq8683 [place] [address]Dr. Airam Deuce Protein [Mass/Vol] 6.8 g/dL Normal 6.4-8.2 [facility] Comment on above: Performed By: #### C MP ####[facility] Kejmnwkixr935[address] [place], [place] [address]Dr. Airam Deuce Sodium [Moles/Vol] 130 mmol/L Critically low 136-145 [facility] Comment on above: Performed By: #### C MP ####[facility] Nkjaargvcq3337[address] [place], [place] [address]Dr. Airam Deuce Urea nitrogen [Mass/Vol] 30.0 mg/dL Critically high 7.0-18.0 [facility] Comment on above: Performed By: #### C MP ####[facility] Jxpialqgvj175[address] [place], [place] [address]Dr. Airam Deuce Urea nitrogen/Creatinine [Mass ratio] 16.8 mg/mg Normal [facility] Comment on above: Performed By: #### C MP ####[facility] Ozzkvtrcms[address] [place], [place] [address]Dr. Selenaneil Deuce OSMOLALITYon 05-28-2022 Osmolality [Osmolality] 275 mosm/kg Normal 275-295 [facility] Comment on above: Performed By: #### O SMO ####[facility] Owxlmyslqx8067[address] [place], [place] [address]Dr. Airam Deuce CBC AUTO DIFFon 12-01-2022 BASO # 0.0 103/ul Normal 0.0-0.1 [facility] Comment on above: Performed By: #### C BC ####[facility] Cjnibviici6344 [place] [address]DrKianna Tripathi Basophils/100 WBC (Bld) 0.4 % Normal 0.2-2.0 [facility] Comment on above: Performed By: #### C BC ####[facility] Mpzilytanj894[address] [place], [place] [address]DrKianna Tripathi EO # 0.3 103/ul Normal 0.0-0.7 [facility] Comment on above: Performed By: #### C BC ####[facility] Judokixtbj17[address] [place], [place] [address]DrKianna Tripathi Eosinophils/100 WBC (Bld) 3.2 % Normal 0.9-7.0 [facility] Comment on above: Performed By: #### C BC ####[facility] Swqwcbtbhw994[address] [place], [place] [address]DrKianna Tripathi Erythrocyte distribution width (RBC) [Ratio] 13.0 % Normal 11.0-15.0 [facility] Comment on above: Performed By: #### C BC ####[facility] Fgflfpwcwb759[address] [place], [place] [address]DrKianna Tripathi Hematocrit (Bld) [Volume fraction] 30.4 % Critically low 36.0-48.0 [facility] Comment on above: Performed By: #### C BC ####[facility] Fewjahhuqs857[address] [place], [place] [address]DrKianna Tripathi Hemoglobin (Bld) [Mass/Vol] 9.6 g/dL Critically low 12.0-16.0 [facility] Comment on above: Performed By: #### C BC ####[facility] Parwzlwdej5[address] [place], [place] [address]DrKianna Tripathi IG # 0.06 10e3/ul Critically high 0.00-0.03 [facility] Comment on above: Performed By: #### C BC ####[facility] Ujumgouuwy8524[address] [place], [place] [address]Dr. Airam Tripathi IG % 0.7 % Critically high 0.0-0.5 [facility] Comment on above: Performed By: #### C BC ####[facility] Nvsjkgznbx9830 [place] [address]DrKianna Tripathi LYMPH # 1.9 103/ul Normal 1.2-3.8 [facility] Comment on above: Performed By: #### C BC ####[facility] Wnwzvzeqzw5255 [place] [address]DrKianna Tripathi Lymphocytes/100 WBC (Bld) 20.6 % Normal 20.5-60.0 [facility] Comment on above: Performed By: #### C BC ####[facility] Vhscohygwj38[address] [place], [place] [address]DrKianna Tripathi MANUAL DIFF REQ NO Normal [facility] Comment on above: Performed By: #### C BC ####[facility] Aihcebpjjs5337 [place] [address]DrKianna Tripathi MCH (RBC) [Entitic mass] 30.1 pg Normal 26.7-34.0 [facility] Comment on above: Performed By: #### C BC ####[facility] Voaqvshtbl2398[address] [place], [place] [address]DrKianna Tripathi MCHC (RBC) [Mass/Vol] 31.6 g/dL Normal 29.9-35.2 [facility] Comment on above: Performed By: #### C BC ####[facility] Kzyfifsknw410[address] [place], [place] [address]DrKianna Tripathi MCV (RBC) [Entitic vol] 95.3 fL Normal 81.0-99.0 [facility] Comment on above: Performed By: #### C BC ####[facility] Pqarhotqei3545[address] [place], [place] [address]DrKianna Tripathi MONO # 0.6 103/ul Normal 0.3-0.8 [facility] Comment on above: Performed By: #### C BC ####[facility] Ksvonvvrnn8084[address] [place], [place] [address]DrKianna Tripathi Monocytes/100 WBC (Bld) 6.9 % Normal 1.7-12.0 [facility] Comment on above: Performed By: #### C BC ####[facility] Zbqcanapxs7187 [place] [address]Dr. Airam Tripathi NEUT # 6.1 103/ul Normal 1.4-6.5 [facility] Comment on above: Performed By: #### C BC ####[facility] Scqoynrflo1580 [place] [address]Dr. Airam Deuce Neutrophils/100 WBC (Bld) 68.2 % Normal 43.0-75.0 [facility] Comment on above: Performed By: #### C BC ####[facility] Hinxaxhxyw186[address] [place], [place] [address]Dr. Airam Tripathi Platelet mean volume (Bld) [Entitic vol] 9.7 fL Normal 9.5-13.5 [facility] Comment on above: Performed By: #### C BC ####[facility] Pacfzogmxq022[address] [place], [place] [address]Dr. Airam Deuce PLT 317 103/ul Normal 150-450 [facility] Comment on above: Performed By: #### C BC ####[facility] Gkxgygtgre475[address] [place], [place] [address]Dr. Selenaneil Deuce RBC 3.19 106/ul Critically low 4.20-5.40 [facility] Comment on above: Performed By: #### C BC ####[facility] Qtlgekxpqp8678[address] [place], [place] [address]Dr. Airam Tripathi WBC 9.0 103/ul Normal 4.0-11.0 [facility] Comment on above: Performed By: #### C BC ####[facility] Pgvsipnehd1310[address] [place], [place] [address]DrKianna Tripathi PROF 14(COMP METB)on 022 Albumin [Mass/Vol] 3.4 g/dL Normal 3.4-5.0 [facility] Comment on above: Performed By: #### C MP ####[facility] Iajwowdzwj2777[address] [place], [place] [address]Dr. Airam Tripathi Albumin/Globulin [Mass ratio] 1.0 {ratio} Normal [facility] Comment on above: Performed By: #### C MP ####[facility] Uyocagzndi3030 [place] [address]Dr. Airam Deuce ALP [Catalytic activity/Vol] 153 U/L Critically high 46-116 [facility] Comment on above: Performed By: #### C MP ####[facility] Oiiqbgpakg8098[address] [place], [place] [address]Dr. Airam Deuce ALT [Catalytic activity/Vol] 21 U/L Normal 14-59 [facility] Comment on above: Performed By: #### C MP ####[facility] Ebvsyxikkj401[address] [place], [place] [address]Dr. Airam Tripathi Anion gap [Moles/Vol] 13.6 mmol/L Normal Th [facility] Comment on above: Performed By: #### C MP ####[facility] Xetojanxvb9927[address] [place], [place] [address]Dr. Airam Deuce AST [Catalytic activity/Vol] 23 U/L Normal 15-37 [facility] Comment on above: Performed By: #### C MP ####[facility] Grhszhxapl679[address] [place], [place] [address]Dr. Airam Tripathi Bilirubin [Mass/Vol] 0.2 mg/dL Normal 0.2-1.0 [facility] Comment on above: Performed By: #### C MP ####[facility] Qcohvayfot1512[address] [place], [place] [address]Dr. Airam Tripathi Calcium [Mass/Vol] 8.4 mg/dL Critically low 8.5-10.1 Th [facility] Comment on above: Performed By: #### C MP ####[facility] Uncpvajskm998[address] [place], [place] [address]Dr. Airam Tripathi Chloride [Moles/Vol] 97 mmol/L Critically low 98-107 [facility] Comment on above: Performed By: #### C MP ####[facility] Gxcyjpowfc3432[address] [place], [place] [address]Dr. Airam Tripathi CO2 [Moles/Vol] 25.2 mmol/L Normal 21.0-32.0 [facility] Comment on above: Performed By: #### C MP ####[facility] Bmxxlxwiru4379 [place] [address]Dr. Airam Deuce Creatinine [Mass/Vol] 1.58 mg/dL Critically high 0.55-1.02 [facility] Comment on above: Performed By: #### C MP ####[facility] Lhhkrpayez8601 [place] [address]Dr. Airam Tripathi EGFR-AF LUXEMBOURGER 40 mL/min/1.73m2 Critically low >=60 [facility] Comment on above: Performed By: #### C MP ####[facility] Rnmclmmnvk740[address] [place], [place] [address]Dr. Airam Tripathi EGFR-NON AF LUXEMBOURGER 33 mL/min/1.73m2 Critically low >=60 [facility] Comment on above: Performed By: #### C MP ####[facility] Qvgizojbpc1295[address] [place], [place] [address]Dr. Airam Tripathi Globulin (S) [Mass/Vol] 3.4 g/dL Normal [facility] Comment on above: Performed By: #### C MP ####[facility] Uaqdtdutun7457[address] [place], [place] [address]Dr. Airam Tripathi Glucose [Mass/Vol] 74 mg/dL Normal 74-106 [facility] Comment on above: Performed By: #### C MP ####[facility] Vhzavdwrea108[address] [place], [place] [address]Dr. Airam Tripathi Potassium [Moles/Vol] 4.8 mmol/L Normal 3.5-5.1 [facility] Comment on above: Performed By: #### C MP ####[facility] Qhpwvwnrjk6457[address] [place], [place] [address]Dr. Airam Tripathi Protein [Mass/Vol] 6.8 g/dL Normal 6.4-8.2 [facility] Comment on above: Performed By: #### C MP ####[facility] Zorzibwywr2384[address] [place], [place] [address]Dr. Airam Tripathi Sodium [Moles/Vol] 131 mmol/L Critically low 136-145 Th e [facility] Comment on above: Performed By: #### C MP ####[facility] Ytbzuyryyw277[address] [place], [place] [address]Dr. Airam Deuce Urea nitrogen [Mass/Vol] 31.0 mg/dL Critically high 7.0-18.0 [facility] Comment on above: Performed By: #### C MP ####[facility] Wogqeuxquu3654[address] [place], [place] [address]Dr. Airam Tripathi Urea nitrogen/Creatinine [Mass ratio] 19.6 mg/mg Normal [facility] Comment on above: Performed By: #### C MP ####[facility] Tbcjqoroeo413[address] [place], [place] [address]Dr. Selenaneil Deuce OSMOLALITYon 05-19-2022 Osmolality [Osmolality] 281 mosm/kg Normal 275-295 [facility] Comment on above: Performed By: #### O SMO ####[facility] Vesjxjoxjc4538[address] [place], [place] [address]Dr. Airam Deuce CBC AUTO DIFFon 05-17-2022 BASO # 0.1 103/ul Normal 0.0-0.1 [facility] Comment on above: Performed By: #### C BC ####[facility] Ciewovgcxf3207[address] [place], [place] [address]Dr. Airam Tripathi Basophils/100 WBC (Bld) 0.6 % Normal 0.2-2.0 [facility] Comment on above: Performed By: #### C BC ####[facility] Tffztykqhd3970[address] [place], [place] [address]DrKianna Tripathi EO # 0.2 103/ul Normal 0.0-0.7 [facility] Comment on above: Performed By: #### C BC ####[facility] Fexztyydjm477[address] [place], [place] [address]Dr. Airam Tripathi Eosinophils/100 WBC (Bld) 1.9 % Normal 0.9-7.0 [facility] Comment on above: Performed By: #### C BC ####[facility] Gjyucfufdw605[address] [place], [place] [address]Dr. Airam Tripathi Erythrocyte distribution width (RBC) [Ratio] 12.9 % Normal 11.0-15.0 [facility] Comment on above: Performed By: #### C BC ####[facility] Zergysrbyq2724 [place] [address]Dr. Airam Tripathi Hematocrit (Bld) [Volume fraction] 32.1 % Critically low 36.0-48.0 [facility] Comment on above: Performed By: #### C BC ####[facility] Udpictpivq5847[address] [place], [place] [address]Dr. Selenaneil Tripathi Hemoglobin (Bld) [Mass/Vol] 9.9 g/dL Critically low 12.0-16.0 [facility] Comment on above: Performed By: #### C BC ####[facility] Bxkdhithgr8094[address] [place], [place] [address]Dr. Airam Tripathi IG # 0.05 10e3/ul Critically high 0.00-0.03 [facility] Comment on above: Performed By: #### C BC ####[facility] Xrzlodnwwr2723[address] [place], [place] [address]Dr. Selenaneil Tripathi IG % 0.6 % Critically high 0.0-0.5 [facility] Comment on above: Performed By: #### C BC ####[facility] Cgmqtuxajm917[address] [place], [place] [address]Dr. Airam Tripathi LYMPH # 1.3 103/ul Normal 1.2-3.8 [facility] Comment on above: Performed By: #### C BC ####[facility] Zjegifyuii9310[address] [place], [place] [address]DrKianna Tripathi Lymphocytes/100 WBC (Bld) 15.2 % Critically low 20.5-60.0 [facility] Comment on above: Performed By: #### C BC ####[facility] Dtgamlsgxm62[address] [place], [place] [address]DrKianna Tripathi MANUAL DIFF REQ NO Normal [facility] Comment on above: Performed By: #### C BC ####[facility] Tdmsuaedls097[address] [place], [place] [address]DrKianna Tripathi MCH (RBC) [Entitic mass] 30.0 pg Normal 26.7-34.0 [facility] Comment on above: Performed By: #### C BC ####[facility] Zzeradqxsu7144 [place] [address]Dr. Airam Tripathi MCHC (RBC) [Mass/Vol] 30.8 g/dL Normal 29.9-35.2 [facility] Comment on above: Performed By: #### C BC ####[facility] Yzcwkpyfgb2120[address] [place], [place] [address]Dr. Airam Deuce MCV (RBC) [Entitic vol] 97.3 fL Normal 81.0-99.0 [facility] Comment on above: Performed By: #### C BC ####[facility] Qjcvcgocuf005[address] [place], [place] [address]Dr. Airam Tripathi MONO # 0.5 103/ul Normal 0.3-0.8 [facility] Comment on above: Performed By: #### C BC ####[facility] Ugglthtkxy7044[address] [place], [place] [address]Dr. Selenaneil Tripathi Monocytes/100 WBC (Bld) 5.4 % Normal 1.7-12.0 [facility] Comment on above: Performed By: #### C BC ####[facility] Ircleftzag6922[address] [place], [place] [address]Dr. Airam Deuce NEUT # 6.5 103/ul Normal 1.4-6.5 [facility] Comment on above: Performed By: #### C BC ####[facility] Aqryxafdjm9557[address] [place], [place] [address]Dr. Selenaneil Tripathi Neutrophils/100 WBC (Bld) 76.3 % Critically high 43.0-75.0 [facility] Comment on above: Performed By: #### C BC ####[facility] Quhwaztzea24[address] [place], [place] [address]Dr. Selenaneil Tripathi Platelet mean volume (Bld) [Entitic vol] 10.1 fL Normal 9.5-13.5 [facility] Comment on above: Performed By: #### C BC ####[facility] Dbsvcpoubk6044 [place] [address]Dr. Airam Tripathi PLT 284 103/ul Normal 150-450 [facility] Comment on above: Performed By: #### C BC ####[facility] Jbnyqkduqf6970 [place] [address]Dr. Airam Deuce RBC 3.30 106/ul Critically low 4.20-5.40 [facility] Comment on above: Performed By: #### C BC ####[facility] Hqnrdkkbmg8866 [place] [address]Dr. Selenaneil Deuce WBC 8.5 103/ul Normal 4.0-11.0 [facility] Comment on above: Performed By: #### C BC ####[facility] Mqfkcewdik3517[address] [place], [place] [address]DrKianna Tripathi PROF 14(COMP METB)on 05-17- 022 Albumin [Mass/Vol] 3.1 g/dL Critically low 3.4-5.0 Th [facility] Comment on above: Performed By: #### C MP ####[facility] Ycfnivtmwv5158 [place] [address]Dr. Airam Tripathi Albumin/Globulin [Mass ratio] 0.9 {ratio} Normal [facility] Comment on above: Performed By: #### C MP ####[facility] Pqlgmjbvpu1014 [place] [address]Dr. Airam Tripathi ALP [Catalytic activity/Vol] 162 U/L Critically high 46-116 [facility] Comment on above: Performed By: #### C MP ####[facility] Bqryxbrugl7608 [place] [address]Dr. Airam Tripathi ALT [Catalytic activity/Vol] 22 U/L Normal 14-59 [facility] Comment on above: Performed By: #### C MP ####[facility] Ejawtnzdwc2963 [place] [address]DrKianna Tripathi Anion gap [Moles/Vol] 9.4 mmol/L Normal [facility] Comment on above: Performed By: #### C MP ####[facility] Clomsvhoht044[address] [place], [place] [address]Dr. Airam Tripathi AST [Catalytic activity/Vol] 26 U/L Normal 15-37 [facility] Comment on above: Performed By: #### C MP ####[facility] Owbtzuxbcm2986 [place] [address]Dr. Airam Deuce Bilirubin [Mass/Vol] 0.2 mg/dL Normal 0.2-1.0 [facility] Comment on above: Performed By: #### C MP ####[facility] Imakjvmsqt9974[address] [place], [place] [address]Dr. Airam Deuce Calcium [Mass/Vol] 8.2 mg/dL Critically low 8.5-10.1 Th e [facility] Comment on above: Performed By: #### C MP ####[facility] Gqfjpcrjgn5990[address] [place], [place] [address]Dr. Airam Tripathi Chloride [Moles/Vol] 103 mmol/L Normal 98-107 [facility] Comment on above: Performed By: #### C MP ####[facility] Ecreoiwgeu3205[address] [place], [place] [address]Dr. Airam Tripathi CO2 [Moles/Vol] 24.8 mmol/L Normal 21.0-32.0 [facility] Comment on above: Performed By: #### C MP ####[facility] Mgluhnnqov110[address] [place], [place] [address]Dr. Airam Tripathi Creatinine [Mass/Vol] 1.19 mg/dL Critically high 0.55-1.02 [facility] Comment on above: Performed By: #### C MP ####[facility] Kfmruvnifq4138[address] [place], [place] [address]Dr. Airam Tripathi EGFR-AF LUXEMBOURGER 56 mL/min/1.73m2 Critically low >=60 [facility] Comment on above: Performed By: #### C MP ####[facility] Fdmrdcisdp720[address] [place], [place] [address]Dr. Airam Tripathi EGFR-NON AF LUXEMBOURGER 46 mL/min/1.73m2 Critically low >=60 [facility] Comment on above: Performed By: #### C MP ####[facility] Aefdliiqqc8597[address] [place], [place] [address]Dr. Airam Tripathi Globulin (S) [Mass/Vol] 3.6 g/dL Normal [facility] Comment on above: Performed By: #### C MP ####[facility] Kgpgfcnefk5816[address] [place], [place] [address]Dr. Airam Tripathi Glucose [Mass/Vol] 75 mg/dL Normal 74-106 [facility] Comment on above: Performed By: #### C MP ####[facility] Eyzpeyqziw1916[address] [place], [place] [address]Dr. Airam Tripathi Potassium [Moles/Vol] 5.2 mmol/L Critically high 3.5-5.1 [facility] Comment on above: Performed By: #### C MP ####[facility] Luakmfiqtx692[address] [place], [place] [address]Dr. Airam Tripathi Protein [Mass/Vol] 6.7 g/dL Normal 6.4-8.2 [facility] Comment on above: Performed By: #### C MP ####[facility] Uzznketbhe803[address] [place], [place] [address]Dr. Airam Tripathi Sodium [Moles/Vol] 132 mmol/L Critically low 136-145 Th [facility] Comment on above: Performed By: #### C MP ####[facility] Gsoyznzpnj7157[address] [place], [place] [address]DrKianna Tripathi Urea nitrogen [Mass/Vol] 28.0 mg/dL Critically high 7.0-18.0 [facility] Comment on above: Performed By: #### C MP ####[facility] Kzswrvhhcv8520[address] [place], [place] [address]DrKianna Tripathi Urea nitrogen/Creatinine [Mass ratio] 23.5 mg/mg Normal [facility] Comment on above: Performed By: #### C MP ####[facility] Okfyyghsvl[address] [place], [place] [address]DrKianna Tripathi OSMOLALITYon 05-16-2022 Osmolality [Osmolality] 281 mosm/kg Normal 275-295 [facility] Comment on above: Performed By: #### O SMO ####[facility] Wlriaxmiso[address] [place], [place] [address]DrKianna Tripathi CBC AUTO DIFFon 05-13-2022 BASO # 0.1 103/ul Normal 0.0-0.1 [facility] Comment on above: Performed By: #### C BC ####[facility] Lyzdrsotxw12[address] [place] [id number]. Airam Tripathi Basophils/100 WBC (Bld) 0.5 % Normal 0.2-2.0 [facility] Comment on above: Performed By: #### C BC ####[facility] Zqdczaotvk4982 [place] [id number]. Airam Tripathi EO # 0.2 103/ul Normal 0.0-0.7 [facility] Comment on above: Performed By: #### C BC ####[facility] Qwsnejwpwd8[address] [place], [place] [address]Dr. Airam Tripathi Eosinophils/100 WBC (Bld) 2.1 % Normal 0.9-7.0 [facility] Comment on above: Performed By: #### C BC ####[facility] Qtcvcgljju10[address] [place], [place] [address]Dr. Airam Tripathi Erythrocyte distribution width (RBC) [Ratio] 12.9 % Normal 11.0-15.0 [facility] Comment on above: Performed By: #### C BC ####[facility] Drmdtuxags1465 [place] [phone]. Airam Tripathi Hematocrit (Bld) [Volume fraction] 31.9 % Critically low 36.0-48.0 [facility] Comment on above: Performed By: #### C BC ####[facility] Hgjycwvhhz[address] [place], [place] [address]Dr. Airam Tripathi Hemoglobin (Bld) [Mass/Vol] 9.7 g/dL Critically low 12.0-16.0 [facility] Comment on above: Performed By: #### C BC ####[facility] Yioskanwjd6210 [place] [id number]. Airam Tripathi IG # 0.06 10e3/ul Critically high 0.00-0.03 [facility] Comment on above: Performed By: #### C BC ####[facility] Weluvlyeoc9293 [place] [phone]. Airam Tripathi IG % 0.7 % Critically high 0.0-0.5 [facility] Comment on above: Performed By: #### C BC ####[facility] Qtvukcuvuv5[address] [place] [address]Dr. Airam Tripathi LYMPH # 1.9 103/ul Normal 1.2-3.8 [facility] Comment on above: Performed By: #### C BC ####[facility] Unekurgtmg9898 [place] [address]Dr. Airam Deuce Lymphocytes/100 WBC (Bld) 21.1 % Normal 20.5-60.0 [facility] Comment on above: Performed By: #### C BC ####[facility] Yjmhwnsgza2041 [place] [address]Dr. Airam Deuce MANUAL DIFF REQ NO Normal [facility] Comment on above: Performed By: #### C BC ####[facility] Yjiyawybxj8016 [place] [address]Dr. Airam Tripathi MCH (RBC) [Entitic mass] 29.7 pg Normal 26.7-34.0 [facility] Comment on above: Performed By: #### C BC ####[facility] Otpetswyvd16[address] [place], [place] [address]Dr. Airam Tripathi MCHC (RBC) [Mass/Vol] 30.4 g/dL Normal 29.9-35.2 [facility] Comment on above: Performed By: #### C BC ####[facility] Caszekcjhx30[address] [place] [address]Dr. Airam Tripathi MCV (RBC) [Entitic vol] 97.6 fL Normal 81.0-99.0 [facility] Comment on above: Performed By: #### C BC ####[facility] Pecqahufxo640[address] [place], [place] [address]Dr. Selenaneil Deuce MONO # 0.6 103/ul Normal 0.3-0.8 [facility] Comment on above: Performed By: #### C BC ####[facility] Npiostanlj3086 [place] [address]Dr. Airam Tripathi Monocytes/100 WBC (Bld) 6.8 % Normal 1.7-12.0 [facility] Comment on above: Performed By: #### C BC ####[facility] Ptmhtwckqg0749 [place] [address]Dr. Airam Tripathi NEUT # 6.3 103/ul Normal 1.4-6.5 [facility] Comment on above: Performed By: #### C BC ####[facility] Cmyeqrwhyb9420 [place] [address]Dr. Airam Tripathi Neutrophils/100 WBC (Bld) 68.8 % Normal 43.0-75.0 [facility] Comment on above: Performed By: #### C BC ####[facility] Yzqfenjmpf7413 [place] [address]Dr. Airam Tripathi Platelet mean volume (Bld) [Entitic vol] 9.6 fL Normal 9.5-13.5 [facility] Comment on above: Performed By: #### C BC ####[facility] Ldvnxsyaxa6582 [place] [address]Dr. Airam Tripathi PLT 295 103/ul Normal 150-450 [facility] Comment on above: Performed By: #### C BC ####[facility] Wyvrqxqirg[address] [place] [address]Dr. Airam Tripathi RBC 3.27 106/ul Critically low 4.20-5.40 [facility] Comment on above: Performed By: #### C BC ####[facility] Pnbuhkqcga3515 [place] [address]Dr. Airam Tripathi WBC 9.1 103/ul Normal 4.0-11.0 [facility] Comment on above: Performed By: #### C BC ####[facility] Mrdjamzuar9723 [place] [address]Dr. Airam Tripathi PROF 14(COMP METB)on 05-13- 022 Albumin [Mass/Vol] 3.3 g/dL Critically low 3.4-5.0 [facility] Comment on above: Performed By: #### C MP ####[facility] Qmwlgeeuif0395 [place] [address]Dr. Airam Deuce Albumin/Globulin [Mass ratio] 1.0 {ratio} Normal [facility] Comment on above: Performed By: #### C MP ####[facility] Inpjnrbxco7169 [place] [address]Dr. Selenaneil Tripathi ALP [Catalytic activity/Vol] 152 U/L Critically high 46-116 [facility] Comment on above: Performed By: #### C MP ####[facility] Fktxhvqsmx5508[address] [place], [place] [address]Dr. Airam Tripathi ALT [Catalytic activity/Vol] 23 U/L Normal 14-59 [facility] Comment on above: Performed By: #### C MP ####[facility] Sjbcklftsy283[address] [place], [place] [address]Dr. Airam Tripathi Anion gap [Moles/Vol] 12.0 mmol/L Normal [facility] Comment on above: Performed By: #### C MP ####[facility] Araqbhoyff3057[address] [place], [place] [address]Dr. Selenaneil Tripathi AST [Catalytic activity/Vol] 25 U/L Normal 15-37 [facility] Comment on above: Performed By: #### C MP ####[facility] Bbrztvmkzv557[address] [place], [place] [address]Dr. Airam Tripathi Bilirubin [Mass/Vol] 0.2 mg/dL Normal 0.2-1.0 [facility] Comment on above: Performed By: #### C MP ####[facility] Wwhqrssrlx627[address] [place], [place] [address]Dr. Airam Tripathi Calcium [Mass/Vol] 8.2 mg/dL Critically low 8.5-10.1 [facility] Comment on above: Performed By: #### C MP ####[facility] Lwekbsndmg3298[address] [place], [place] [address]Dr. Airam Tripathi Chloride [Moles/Vol] 100 mmol/L Normal 98-107 [facility] Comment on above: Performed By: #### C MP ####[facility] Yhnkyycdcv4778[address] [place], [place] [address]Dr. Airam Deuce CO2 [Moles/Vol] 24.8 mmol/L Normal 21.0-32.0 [facility] Comment on above: Performed By: #### C MP ####[facility] Mpabbwdsjm7498 [place] [address]Dr. Airam Deuce Creatinine [Mass/Vol] 1.46 mg/dL Critically high 0.55-1.02 [facility] Comment on above: Performed By: #### C MP ####[facility] Uztoeipfrg7597[address] [place], [place] [address]Dr. Airam Deuce EGFR-AF LUXEMBOURGER 44 mL/min/1.73m2 Critically low >=60 [facility] Comment on above: Performed By: #### C MP ####[facility] Nnzeokshrz7235[address] [place], [place] [address]Dr. Airam Tripathi EGFR-NON AF LUXEMBOURGER 37 mL/min/1.73m2 Critically low >=60 [facility] Comment on above: Performed By: #### C MP ####[facility] Mdkvbopijy938[address] [place], [place] [address]Dr. Selenaneil Tripathi Globulin (S) [Mass/Vol] 3.3 g/dL Normal [facility] Comment on above: Performed By: #### C MP ####[facility] Tzybbxgant810[address] [place], [place] [address]Dr. Airam Tripathi Glucose [Mass/Vol] 86 mg/dL Normal 74-106 [facility] Comment on above: Performed By: #### C MP ####[facility] Yadctmachn452[address] [place], [place] [address]Dr. Airam Deuce Potassium [Moles/Vol] 4.8 mmol/L Normal 3.5-5.1 [facility] Comment on above: Performed By: #### C MP ####[facility] Zfgcdpkndp9524[address] [place], [place] [address]Dr. Airam Deuce Protein [Mass/Vol] 6.6 g/dL Normal 6.4-8.2 [facility] Comment on above: Performed By: #### C MP ####[facility] Vzxmmmaxzz2700[address] [place], [place] [address]Dr. Airam Tripathi Sodium [Moles/Vol] 132 mmol/L Critically low 136-145 [facility] Comment on above: Performed By: #### C MP ####[facility] Rtycfycozl7899[address] [place], [place] [address]Dr. Airam Tripathi Urea nitrogen [Mass/Vol] 34.0 mg/dL Critically high 7.0-18.0 [facility] Comment on above: Performed By: #### C MP ####[facility] Fvblycevmf3047[address] [place], [place] [address]Dr. Airam Tripathi Urea nitrogen/Creatinine [Mass ratio] 23.3 mg/mg Normal [facility] Comment on above: Performed By: #### C MP ####[facility] Ydeekdseco7334[address] [place], [place] [address]Dr. Airam Tripathi OSMOLALITYon 05-06-2022 Osmolality [Osmolality] 284 mosm/kg Normal 275-295 [facility] Comment on above: Performed By: #### O SMO ####[facility] Jkmhsaekvp6112[address] [place], [place] [address]Dr. Airam Tripathi XR LSPINE MIN 4 VIEWSon XR LSPINE MIN 4 VIEWS Normal [facility] CBC AUTO DIFFon 05-03-2022 BASO # 0.1 103/ul Normal 0.0-0.1 [facility] Comment on above: Performed By: #### C BC ####[facility] Eotnsgxhfx098[address] [place], [place] [address]Dr. Airam Deuce Basophils/100 WBC (Bld) 0.6 % Normal 0.2-2.0 [facility] Comment on above: Performed By: #### C BC ####[facility] Pcdisjmytg734[address] [place], [place] [address]Dr. Airam Deuce EO # 0.3 103/ul Normal 0.0-0.7 [facility] Comment on above: Performed By: #### C BC ####[facility] Mghexptcjp123[address] [place], [place] [address]Dr. Selenaneil Tripathi Eosinophils/100 WBC (Bld) 4.2 % Normal 0.9-7.0 [facility] Comment on above: Performed By: #### C BC ####[facility] Zcaakhlxpu3712 [place] [address]Dr. Airam Tripathi Erythrocyte distribution width (RBC) [Ratio] 13.4 % Normal 11.0-15.0 [facility] Comment on above: Performed By: #### C BC ####[facility] Solnmzjukj5053 [place] [address]Dr. Airam Tripathi Hematocrit (Bld) [Volume fraction] 30.7 % Critically low 36.0-48.0 [facility] Comment on above: Performed By: #### C BC ####[facility] Ebwtxrvpct740[address] [place], [place] [address]DrKianna Airam Tripathi Hemoglobin (Bld) [Mass/Vol] 9.6 g/dL Critically low 12.0-16.0 [facility] Comment on above: Performed By: #### C BC ####[facility] Ayvoskuwtf3314[address] [place], [place] [address]DrKianna Airam Tripathi IG # 0.05 10e3/ul Critically high 0.00-0.03 [facility] Comment on above: Performed By: #### C BC ####[facility] Mikevsvqmy7805[address] [place], [place] [address]DrKianna Airam Tripathi IG % 0.6 % Critically high 0.0-0.5 [facility] Comment on above: Performed By: #### C BC ####[facility] Zuqanscwra564[address] [place], [place] [address]DrKianna Airam Deuce LYMPH # 1.9 103/ul Normal 1.2-3.8 [facility] Comment on above: Performed By: #### C BC ####[facility] Ihabfdcwag105[address] [place], [place] [address]DrKianna Selenaneil Tripathi Lymphocytes/100 WBC (Bld) 23.5 % Normal 20.5-60.0 [facility] Comment on above: Performed By: #### C BC ####[facility] Iwlayxkfpp7936[address] [place], [place] [address]DrKianna Selenaneil Tripathi MANUAL DIFF REQ NO Normal [facility] Comment on above: Performed By: #### C BC ####[facility] Dkngqymxce3018 [place] [id number]. Airam Deuce MCH (RBC) [Entitic mass] 30.8 pg Normal 26.7-34.0 [facility] Comment on above: Performed By: #### C BC ####[facility] Hmhecdmwrl6587 [place] [address]Dr. Airam Tripathi MCHC (RBC) [Mass/Vol] 31.3 g/dL Normal 29.9-35.2 [facility] Comment on above: Performed By: #### C BC ####[facility] Dwvmnwekep9676 [place] [address]Dr. Airam Tripathi MCV (RBC) [Entitic vol] 98.4 fL Normal 81.0-99.0 [facility] Comment on above: Performed By: #### C BC ####[facility] Gxpsmqnftc3864[address] [place], [place] [address]Dr. Airam Tripathi MONO # 0.6 103/ul Normal 0.3-0.8 [facility] Comment on above: Performed By: #### C BC ####[facility] Zvsrwjayob4274[address] [place], [place] [address]Dr. Airam Tripathi Monocytes/100 WBC (Bld) 7.4 % Normal 1.7-12.0 [facility] Comment on above: Performed By: #### C BC ####[facility] Rwthxdxcxf566[address] [place], [place] [address]Dr. Airam Tripathi NEUT # 5.0 103/ul Normal 1.4-6.5 [facility] Comment on above: Performed By: #### C BC ####[facility] Wfjqooxuor6330[address] [place], [place] [address]DrKianna Tripathi Neutrophils/100 WBC (Bld) 63.7 % Normal 43.0-75.0 [facility] Comment on above: Performed By: #### C BC ####[facility] Fupzqiubnp2918[address] [place], [place] [address]DrKianna Tripathi Platelet mean volume (Bld) [Entitic vol] 9.5 fL Normal 9.5-13.5 [facility] Comment on above: Performed By: #### C BC ####[facility] Jnuqcitdyj5274 [place] [id number]. Selenaneil Deuce PLT 280 103/ul Normal 150-450 [facility] Comment on above: Performed By: #### C BC ####[facility] Sohtaolorb8430 [place] [phone]. Selenaneil Deuce RBC 3.12 106/ul Critically low 4.20-5.40 [facility] Comment on above: Performed By: #### C BC ####[facility] Zcmbxdvsfm3863 [place] [phone]. Selenaneil Deuce WBC 7.9 103/ul Normal 4.0-11.0 [facility] Comment on above: Performed By: #### C BC ####[facility] Nnzysonywc8059 [place] [address]Dr. Airam Tripathi PROF 14(COMP METB)on 022 Albumin [Mass/Vol] 3.1 g/dL Critically low 3.4-5.0 [facility] Comment on above: Performed By: #### C MP ####[facility] Qcexsdhyjd3462 [place] [address]Dr. Airam Tripathi Albumin/Globulin [Mass ratio] 0.9 {ratio} Normal [facility] Comment on above: Performed By: #### C MP ####[facility] Wsviinsuqm3585 [place] [address]Dr. Airam Tripathi ALP [Catalytic activity/Vol] 140 U/L Critically high 46-116 [facility] Comment on above: Performed By: #### C MP ####[facility] Acrzdklrwr1029 [place] [id number]. Airam Tripathi ALT [Catalytic activity/Vol] 24 U/L Normal 14-59 [facility] Comment on above: Performed By: #### C MP ####[facility] Oxrqejmjbh0350 [place] [phone]. Airam Tripathi Anion gap [Moles/Vol] 11.2 mmol/L Normal [facility] Comment on above: Performed By: #### C MP ####[facility] Mxjsufwbmg7070 [place] [phone]. Airam Tripathi AST [Catalytic activity/Vol] 26 U/L Normal 15-37 [facility] Comment on above: Performed By: #### C MP ####[facility] Nosamzsjed2130 [place] [phone]. Airam Tripathi Bilirubin [Mass/Vol] 0.2 mg/dL Normal 0.2-1.0 [facility] Comment on above: Performed By: #### C MP ####[facility] Eqwfrxqyww7672 [place] [phone]. Airam Tripathi Calcium [Mass/Vol] 8.3 mg/dL Critically low 8.5-10.1 [facility] Comment on above: Performed By: #### C MP ####[facility] Zjvmoanxtw0654[address] [place], [place] [address]Dr. Airam Tripathi Chloride [Moles/Vol] 101 mmol/L Normal 98-107 [facility] Comment on above: Performed By: #### C MP ####[facility] Awstbykalq986[address] [place], [place] [address]Dr. Airam Tripathi CO2 [Moles/Vol] 25.5 mmol/L Normal 21.0-32.0 [facility] Comment on above: Performed By: #### C MP ####[facility] Wodzemmuue65[address] [place], [place] [address]Dr. Airam Tripathi Creatinine [Mass/Vol] 1.43 mg/dL Critically high 0.55-1.02 [facility] Comment on above: Performed By: #### C MP ####[facility] Dlicnlllvp6680 [place] [phone]. Airam Deuce EGFR-AF LUXEMBOURGER 45 mL/min/1.73m2 Critically low >=60 [facility] Comment on above: Performed By: #### C MP ####[facility] Nekdfixwrt3469 [place] [phone]. Airam Tripathi EGFR-NON AF LUXEMBOURGER 37 mL/min/1.73m2 Critically low >=60 [facility] Comment on above: Performed By: #### C MP ####[facility] Aevkeldhvq6627 [place] [address]Dr. Airam Tripathi Globulin (S) [Mass/Vol] 3.3 g/dL Normal [facility] Comment on above: Performed By: #### C MP ####[facility] Hgfkubfsir2146 [place] [phone]. Airam Deuce Glucose [Mass/Vol] 74 mg/dL Normal 74-106 [facility] Comment on above: Performed By: #### C MP ####[facility] Jylgwrkshv5437 [place] [address]Dr. Airam Deuce Potassium [Moles/Vol] 4.7 mmol/L Normal 3.5-5.1 [facility] Comment on above: Performed By: #### C MP ####[facility] Hekpjklgwk065[address] [place], [place] [address]Dr. Airam Deuce Protein [Mass/Vol] 6.4 g/dL Normal 6.4-8.2 [facility] Comment on above: Performed By: #### C MP ####[facility] Yraybbcgna8888[address] [place], [place] [address]Dr. Airam Deuce Sodium [Moles/Vol] 133 mmol/L Critically low 136-145 [facility] Comment on above: Performed By: #### C MP ####[facility] Tofajaehbl5924 [place] [address]Dr. Airam Deuce Urea nitrogen [Mass/Vol] 38.0 mg/dL Critically high 7.0-18.0 [facility] Comment on above: Performed By: #### C MP ####[facility] Hvwmfhlyzy1075 [place] [address]Dr. Airam Deuce Urea nitrogen/Creatinine [Mass ratio] 26.6 mg/mg Normal [facility] Comment on above: Performed By: #### C MP ####[facility] Oejfwvtacf2128 [place] [address]Dr. Selenaneil Deuce OSMOLALITYon 04-29-2022 Osmolality [Osmolality] 292 mosm/kg Normal 275-295 [facility] Comment on above: Performed By: #### O SMO ####[facility] Gkhavcvidw386[address] [place], [place] [address]Dr. Airam Tripathi CBC AUTO DIFFon 04-28-2022 BASO # 0.0 103/ul Normal 0.0-0.1 [facility] Comment on above: Performed By: #### C BC ####[facility] Bpduxukumv9305[address] [place], [place] [address]Dr. Airam Tripathi Basophils/100 WBC (Bld) 0.5 % Normal 0.2-2.0 [facility] Comment on above: Performed By: #### C BC ####[facility] Rpewkrphmh6224[address] [place], [place] [address]Dr. Airam Tripathi EO # 0.2 103/ul Normal 0.0-0.7 [facility] Comment on above: Performed By: #### C BC ####[facility] Cizgukhrvy669[address] [place], [place] [address]Dr. Airam Tripathi Eosinophils/100 WBC (Bld) 3.4 % Normal 0.9-7.0 [facility] Comment on above: Performed By: #### C BC ####[facility] Awbsvvbags5664[address] [place], [place] [address]Dr. Airam Tripathi Erythrocyte distribution width (RBC) [Ratio] 13.4 % Normal 11.0-15.0 [facility] Comment on above: Performed By: #### C BC ####[facility] Giczzvbliw9517[address] [place], [place] [address]Dr. Airam Tripathi Hematocrit (Bld) [Volume fraction] 31.6 % Critically low 36.0-48.0 [facility] Comment on above: Performed By: #### C BC ####[facility] Hrvxbbwbxn1267[address] [place], [place] [address]Dr. Airam Tripathi Hemoglobin (Bld) [Mass/Vol] 9.8 g/dL Critically low 12.0-16.0 [facility] Comment on above: Performed By: #### C BC ####[facility] Jqelnbeptr600[address] [place], [place] [address]Dr. Airam Tripathi IG # 0.02 10e3/ul Normal 0.00-0.03 [facility] Comment on above: Performed By: #### C BC ####[facility] Fgnoxwtsgl9701 [place] [address]DrKianna Airam Tripathi IG % 0.3 % Normal 0.0-0.5 [facility] Comment on above: Performed By: #### C BC ####[facility] Hntszyaeqy3267 [place] [address]DrKianna Waltersneil Deuce LYMPH # 1.3 103/ul Normal 1.2-3.8 [facility] Comment on above: Performed By: #### C BC ####[facility] Dzeuxfohly1639 [place] [address]DrKianna Airam Deuce Lymphocytes/100 WBC (Bld) 21.7 % Normal 20.5-60.0 [facility] Comment on above: Performed By: #### C BC ####[facility] Yysnblgode88[address] [place], [place] [address]DrKianna Tripathi MANUAL DIFF REQ NO Normal [facility] Comment on above: Performed By: #### C BC ####[facility] Fkuvtfkkqy8016 [place] [address]DrKianna Airam Deuce MCH (RBC) [Entitic mass] 30.7 pg Normal 26.7-34.0 [facility] Comment on above: Performed By: #### C BC ####[facility] Hheetfttuy26[address] [place], [place] [address]DrKianna Airam Deuce MCHC (RBC) [Mass/Vol] 31.0 g/dL Normal 29.9-35.2 [facility] Comment on above: Performed By: #### C BC ####[facility] Uxpigqwhrr3640 [place] [address]DrKianna Airam Deuce MCV (RBC) [Entitic vol] 99.1 fL Critically high 81.0-99.0 [facility] Comment on above: Performed By: #### C BC ####[facility] Jfzueffysw[address] [place], [place] [address]DrKianna Waltersneil Deuce MONO # 0.3 103/ul Normal 0.3-0.8 [facility] Comment on above: Performed By: #### C BC ####[facility] Nolwjhnyec1189 [place] [address]Dr. Airam Tripathi Monocytes/100 WBC (Bld) 5.2 % Normal 1.7-12.0 [facility] Comment on above: Performed By: #### C BC ####[facility] Zuypiwtqaj[address] [place] [address]Dr. Airam Tripathi NEUT # 4.1 103/ul Normal 1.4-6.5 [facility] Comment on above: Performed By: #### C BC ####[facility] Crnfebogao[address] [place] [address]Dr. Airam Tripathi Neutrophils/100 WBC (Bld) 68.9 % Normal 43.0-75.0 [facility] Comment on above: Performed By: #### C BC ####[facility] Jmctoofvgs[address] [place] [address]Dr. Airam Tripathi Platelet mean volume (Bld) [Entitic vol] 9.8 fL Normal 9.5-13.5 [facility] Comment on above: Performed By: #### C BC ####[facility] Affqcdhnzs[address] [place], [place] [address]Dr. Airam Tripathi PLT 329 103/ul Normal 150-450 [facility] Comment on above: Performed By: #### C BC ####[facility] Ytqbegkmhu068[address] [place], [place] [address]Dr. Airam Tripathi RBC 3.19 106/ul Critically low 4.20-5.40 [facility] Comment on above: Performed By: #### C BC ####[facility] Cxwykstmcc[address] [place], [place] [address]Dr. Airam Tripathi WBC 5.9 103/ul Normal 4.0-11.0 [facility] Comment on above: Performed By: #### C BC ####[facility] Hldnzfiegd[address] [place] [address]DrKianna Tripathi PROF 14(COMP METB)on 022 Albumin [Mass/Vol] 2.9 g/dL Critically low 3.4-5.0 [facility] Comment on above: Performed By: #### C MP ####[facility] Ihdbebsiwq68[address] [place] [address]Dr. Airam Tripathi Albumin/Globulin [Mass ratio] 0.9 {ratio} Normal [facility] Comment on above: Performed By: #### C MP ####[facility] Luilmvinzd40[address] [place] [address]Dr. Airam Tripathi ALP [Catalytic activity/Vol] 127 U/L Critically high 46-116 [facility] Comment on above: Performed By: #### C MP ####[facility] Fqlszdtaku457[address] [place], [place] [address]Dr. Airam Tripathi ALT [Catalytic activity/Vol] 22 U/L Normal 14-59 [facility] Comment on above: Performed By: #### C MP ####[facility] Divxvmpmbs228[address] [place], [place] [address]Dr. Airam Tripathi Anion gap [Moles/Vol] 6.7 mmol/L Normal [facility] Comment on above: Performed By: #### C MP ####[facility] Uwvevmigve84[address] [place], [place] [address]Dr. Airam Tripathi AST [Catalytic activity/Vol] 24 U/L Normal 15-37 [facility] Comment on above: Performed By: #### C MP ####[facility] Zvgmtajkwq9[address] [place], [place] [address]Dr. Airam Tripathi Bilirubin [Mass/Vol] 0.2 mg/dL Normal 0.2-1.0 [facility] Comment on above: Performed By: #### C MP ####[facility] Kzbwuortjk419[address] [place], [place] [address]Dr. Airam Tripathi Calcium [Mass/Vol] 8.2 mg/dL Critically low 8.5-10.1 Th [facility] Comment on above: Performed By: #### C MP ####[facility] Cbcecwvtxy06[address] [place], [place] [address]Dr. Airam Tripathi Chloride [Moles/Vol] 105 mmol/L Normal 98-107 [facility] Comment on above: Performed By: #### C MP ####[facility] Qedmazxwpm4[address] [place] [id number]. Airam Tripathi CO2 [Moles/Vol] 28.2 mmol/L Normal 21.0-32.0 [facility] Comment on above: Performed By: #### C MP ####[facility] Rzotumtivj3[address] [place] [address]Dr. Airam Deuce Creatinine [Mass/Vol] 1.22 mg/dL Critically high 0.55-1.02 [facility] Comment on above: Performed By: #### C MP ####[facility] Etxwetacyn[address] [place] [address]Dr. Airam Deuce EGFR-AF LUXEMBOURGER 54 mL/min/1.73m2 Critically low >=60 [facility] Comment on above: Performed By: #### C MP ####[facility] Rdahpbtugc94[address] [place] [address]Dr. Airam Deuce EGFR-NON AF LUXEMBOURGER 45 mL/min/1.73m2 Critically low >=60 [facility] Comment on above: Performed By: #### C MP ####[facility] Kobqxwsrno09[address] [place] [address]Dr. Airam Deuce Globulin (S) [Mass/Vol] 3.2 g/dL Normal [facility] Comment on above: Performed By: #### C MP ####[facility] Kiyyefrrqh0536 [place] [address]Dr. Airam Deuce Glucose [Mass/Vol] 77 mg/dL Normal 74-106 [facility] Comment on above: Performed By: #### C MP ####[facility] Kvsjapwmvp5561 [place] [id number]. Airam Deuce Potassium [Moles/Vol] 4.9 mmol/L Normal 3.5-5.1 [facility] Comment on above: Performed By: #### C MP ####[facility] Yprzgtebrj8797 [place] [address]Dr. Selenaneil Tripathi Protein [Mass/Vol] 6.1 g/dL Critically low 6.4-8.2 [facility] Comment on above: Performed By: #### C MP ####[facility] Cdrzbkiwgh499[address] [place], [place] [address]DrKianna Airam Deuce Sodium [Moles/Vol] 135 mmol/L Critically low 136-145 Th [facility] Comment on above: Performed By: #### C MP ####[facility] Dhnqkiysgl1377[address] [place], [place] [address]Dr. Airam Deuce Urea nitrogen [Mass/Vol] 30.0 mg/dL Critically high 7.0-18.0 [facility] Comment on above: Performed By: #### C MP ####[facility] Stdtgwgnxt2115[address] [place], [place] [address]Dr. Airam Tripathi Urea nitrogen/Creatinine [Mass ratio] 24.6 mg/mg Normal [facility] Comment on above: Performed By: #### C MP ####[facility] Lvzyqbtuas739[address] [place], [place] [address]DrKianna Tripathi OSMOLALITYon 04-23-2022 Osmolality [Osmolality] 289 mosm/kg Normal 275-295 [facility] Comment on above: Performed By: #### O SMO ####[facility] Gjkyfjkfse624[address] [place], [place] [address]DrKianna Airam Deuce CBC AUTO DIFFon 04-20-2022 BASO # 0.0 103/ul Normal 0.0-0.1 [facility] Comment on above: Performed By: #### C BC ####[facility] Ozyjvtjnok4108[address] [place], [place] [address]Dr. Airam Tripathi Basophils/100 WBC (Bld) 0.4 % Normal 0.2-2.0 [facility] Comment on above: Performed By: #### C BC ####[facility] Uhrhhmgrbg7087[address] [place], [place] [address]DrKianna Tripathi EO # 0.2 103/ul Normal 0.0-0.7 [facility] Comment on above: Performed By: #### C BC ####[facility] Wbadufeciq5755[address] [place], [place] [address]Dr. Airam Tripathi Eosinophils/100 WBC (Bld) 3.1 % Normal 0.9-7.0 [facility] Comment on above: Performed By: #### C BC ####[facility] Clymiiychp066[address] [place], [place] [address]Dr. Airam Tripathi Erythrocyte distribution width (RBC) [Ratio] 13.8 % Normal 11.0-15.0 [facility] Comment on above: Performed By: #### C BC ####[facility] Ilvwcmiltd6036[address] [place], [place] [address]DrKianna Tripathi Hematocrit (Bld) [Volume fraction] 29.5 % Critically low 36.0-48.0 [facility] Comment on above: Performed By: #### C BC ####[facility] Pacminomjs7788[address] [place], [place] [address]DrKianna Tripathi Hemoglobin (Bld) [Mass/Vol] 9.2 g/dL Critically low 12.0-16.0 [facility] Comment on above: Performed By: #### C BC ####[facility] Vppijripsh3620[address] [place], [place] [address]Dr. Airam Tripathi IG # 0.02 10e3/ul Normal 0.00-0.03 [facility] Comment on above: Performed By: #### C BC ####[facility] Fjigutpqft3195[address] [place], [place] [address]DrKianna Tripathi IG % 0.4 % Normal 0.0-0.5 [facility] Comment on above: Performed By: #### C BC ####[facility] Vloezjayou496[address] [place], [place] [address]DrKianna Tripathi LYMPH # 0.8 103/ul Critically low 1.2-3.8 [facility] Comment on above: Performed By: #### C BC ####[facility] Yjvukdyuna5150[address] [place], [place] [address]DrKianna Tripathi Lymphocytes/100 WBC (Bld) 14.0 % Critically low 20.5-60.0 [facility] Comment on above: Performed By: #### C BC ####[facility] Oaueozgmoq917[address] [place], [place] [address]DrKianna Tripathi MANUAL DIFF REQ NO Normal [facility] Comment on above: Performed By: #### C BC ####[facility] Iduyyxnzcx6096 [place] [address]DrKianna Tripathi MCH (RBC) [Entitic mass] 30.4 pg Normal 26.7-34.0 [facility] Comment on above: Performed By: #### C BC ####[facility] Etcemnxtof6147[address] [place], [place] [address]DrKianna Tripathi MCHC (RBC) [Mass/Vol] 31.2 g/dL Normal 29.9-35.2 [facility] Comment on above: Performed By: #### C BC ####[facility] Sehbipsazm0345[address] [place], [place] [address]DrKianna Tripathi MCV (RBC) [Entitic vol] 97.4 fL Normal 81.0-99.0 [facility] Comment on above: Performed By: #### C BC ####[facility] Dmpmyideba970[address] [place], [place] [address]DrKinana Tripathi MONO # 0.3 103/ul Normal 0.3-0.8 [facility] Comment on above: Performed By: #### C BC ####[facility] Mmkyvtmukc410[address] [place], [place] [address]DrKianna Tripathi Monocytes/100 WBC (Bld) 5.6 % Normal 1.7-12.0 [facility] Comment on above: Performed By: #### C BC ####[facility] Ijyyffuxtf0120[address] [place], [place] [address]DrKianna Tripathi NEUT # 4.2 103/ul Normal 1.4-6.5 [facility] Comment on above: Performed By: #### C BC ####[facility] Banbayaogn2912[address] [place], [place] [address]DrKianna Tripathi Neutrophils/100 WBC (Bld) 76.5 % Critically high 43.0-75.0 [facility] Comment on above: Performed By: #### C BC ####[facility] Kpmvutmaez31[address] [place], [place] [address]DrKianna Tripathi Platelet mean volume (Bld) [Entitic vol] 9.4 fL Critically low 9.5-13.5 [facility] Comment on above: Performed By: #### C BC ####[facility] Gnnzlrcdhg38[address] [place] [address]Dr. Airam Tripathi PLT 250 103/ul Normal 150-450 [facility] Comment on above: Performed By: #### C BC ####[facility] Lwfoxgtmoc4393 [place] [address]Dr. Airam Tripathi RBC 3.03 106/ul Critically low 4.20-5.40 [facility] Comment on above: Performed By: #### C BC ####[facility] Sbpeyvyjnp9990[address] [place], [place] [address]Dr. Airam Tripathi WBC 5.5 103/ul Normal 4.0-11.0 [facility] Comment on above: Performed By: #### C BC ####[facility] Ntzmnpthil6989 [place] [address]DrKianna Tripathi PROF 14(COMP METB)on 022 Albumin [Mass/Vol] 2.7 g/dL Critically low 3.4-5.0 [facility] Comment on above: Performed By: #### C MP ####[facility] Zrfcrrdkbq6922[address] [place], [place] [address]Dr. Airam Tripathi Albumin/Globulin [Mass ratio] 0.9 {ratio} Normal [facility] Comment on above: Performed By: #### C MP ####[facility] Enufhgdsbf9526[address] [place], [place] [address]Dr. Airam Tripathi ALP [Catalytic activity/Vol] 113 U/L Normal 46-116 [facility] Comment on above: Performed By: #### C MP ####[facility] Jocvotfwno3487[address] [place], [place] [address]Dr. Airam Tripathi ALT [Catalytic activity/Vol] 20 U/L Normal 14-59 [facility] Comment on above: Performed By: #### C MP ####[facility] Cjnqyrpuer1999[address] [place], [place] [address]Dr. Airam Tripathi Anion gap [Moles/Vol] 11.1 mmol/L Normal Th [facility] Comment on above: Performed By: #### C MP ####[facility] Qhfstkczts657[address] [place], [place] [address]Dr. Airam Tripathi AST [Catalytic activity/Vol] 19 U/L Normal 15-37 [facility] Comment on above: Performed By: #### C MP ####[facility] Mfycbwtcsn178[address] [place], [place] [address]Dr. Airam Deuce Bilirubin [Mass/Vol] 0.2 mg/dL Normal 0.2-1.0 [facility] Comment on above: Performed By: #### C MP ####[facility] Xmjwcskugm508[address] [place], [place] [address]Dr. Airam Tripathi Calcium [Mass/Vol] 8.3 mg/dL Critically low 8.5-10.1 [facility] Comment on above: Performed By: #### C MP ####[facility] Jndxjnyvdb9430[address] [place], [place] [address]Dr. Airam Tripathi Chloride [Moles/Vol] 104 mmol/L Normal 98-107 [facility] Comment on above: Performed By: #### C MP ####[facility] Gofsgooino397[address] [place], [place] [address]Dr. Selenaneil Tripathi CO2 [Moles/Vol] 25.3 mmol/L Normal 21.0-32.0 [facility] Comment on above: Performed By: #### C MP ####[facility] Apzxdhjttd539[address] [place], [place] [address]Dr. Airam Tripathi Creatinine [Mass/Vol] 1.33 mg/dL Critically high 0.55-1.02 [facility] Comment on above: Performed By: #### C MP ####[facility] Vdwrqpsuwk2905[address] [place], [place] [address]Dr. Airam Tripathi EGFR-AF LUXEMBOURGER 49 mL/min/1.73m2 Critically low >=60 [facility] Comment on above: Performed By: #### C MP ####[facility] Mgpjtmffdk6760[address] [place], [place] [address]Dr. Airam Tripathi EGFR-NON AF LUXEMBOURGER 41 mL/min/1.73m2 Critically low >=60 [facility] Comment on above: Performed By: #### C MP ####[facility] Yqkorgeylx5483 [place] [address]Dr. Airam Tripathi Globulin (S) [Mass/Vol] 3.1 g/dL Normal [facility] Comment on above: Performed By: #### C MP ####[facility] Rbpsmyjiiu5776 [place] [address]Dr. Airam Tripathi Glucose [Mass/Vol] 88 mg/dL Normal 74-106 [facility] Comment on above: Performed By: #### C MP ####[facility] Zedduczcvt8527[address] [place], [place] [address]Dr. Airam Tripathi Potassium [Moles/Vol] 5.4 mmol/L Critically high 3.5-5.1 [facility] Comment on above: Performed By: #### C MP ####[facility] Wffhhimkuv5823[address] [place], [place] [address]Dr. Airam Tripathi Protein [Mass/Vol] 5.8 g/dL Critically low 6.4-8.2 Th [facility] Comment on above: Performed By: #### C MP ####[facility] Ialhqhzgjc686[address] [place], [place] [address]Dr. Airam Triapthi Sodium [Moles/Vol] 135 mmol/L Critically low 136-145 Th [facility] Comment on above: Performed By: #### C MP ####[facility] Pmedqguzrp684[address] [place], [place] [address]Dr. Airam Tripathi Urea nitrogen [Mass/Vol] 38.0 mg/dL Critically high 7.0-18.0 [facility] Comment on above: Performed By: #### C MP ####[facility] Smwjiuskmc1710[address] [place], [place] [address]Dr. Airam Tripathi Urea nitrogen/Creatinine [Mass ratio] 28.6 mg/mg Normal [facility] Comment on above: Performed By: #### C MP ####[facility] Dslzwtpstk3597[address] [place], [place] [address]Dr. Airam Tripathi OSMOLALITYon 04-15-2022 Osmolality [Osmolality] 284 mosm/kg Normal 275-295 [facility] Comment on above: Performed By: #### O SMO ####[facility] Ubuzrybfrm8832[address] [place], [place] [address]Dr. Airam Tripathi CBC AUTO DIFFon 04-14-2022 BASO # 0.0 103/ul Normal 0.0-0.1 [facility] Comment on above: Performed By: #### C BC ####[facility] Acyogljvhf0638[address] [place], [place] [address]Dr. Airam Tripathi Basophils/100 WBC (Bld) 0.5 % Normal 0.2-2.0 [facility] Comment on above: Performed By: #### C BC ####[facility] Qptrfgipcp499[address] [place], [place] [address]Dr. Airam Tripathi EO # 0.3 103/ul Normal 0.0-0.7 [facility] Comment on above: Performed By: #### C BC ####[facility] Oxxxwbkeod253[address] [place], [place] [address]Dr. Airam Tripathi Eosinophils/100 WBC (Bld) 3.6 % Normal 0.9-7.0 [facility] Comment on above: Performed By: #### C BC ####[facility] Lpnmfxfjof6687[address] [place], [place] [address]Dr. Airam Tripathi Erythrocyte distribution width (RBC) [Ratio] 13.4 % Normal 11.0-15.0 [facility] Comment on above: Performed By: #### C BC ####[facility] Chbewyccdl5715[address] [place], [place] [address]Dr. Airam Tripathi Hematocrit (Bld) [Volume fraction] 30.6 % Critically low 36.0-48.0 [facility] Comment on above: Performed By: #### C BC ####[facility] Gtezveqwtg4640[address] [place], [place] [address]Dr. Airam Tripathi Hemoglobin (Bld) [Mass/Vol] 9.7 g/dL Critically low 12.0-16.0 [facility] Comment on above: Performed By: #### C BC ####[facility] Ynaxhgaajg[address] [place] [address]Dr. Selenaneil Deuce IG # 0.08 10e3/ul Critically high 0.00-0.03 [facility] Comment on above: Performed By: #### C BC ####[facility] Mpfypzlicu90[address] [place] [address]Dr. Airam Deuce IG % 0.9 % Critically high 0.0-0.5 [facility] Comment on above: Performed By: #### C BC ####[facility] Cwwnfwgbyb05[address] [place] [address]Dr. Airam Tripathi LYMPH # 2.1 103/ul Normal 1.2-3.8 [facility] Comment on above: Performed By: #### C BC ####[facility] Hphcbubjqo34[address] [place] [address]Dr. Airam Tripathi Lymphocytes/100 WBC (Bld) 24.2 % Normal 20.5-60.0 [facility] Comment on above: Performed By: #### C BC ####[facility] Sonxmqdjjd00[address] [place] [address]Dr. Selenaneil Tripathi MANUAL DIFF REQ NO Normal [facility] Comment on above: Performed By: #### C BC ####[facility] Oixkrxllkw5[address] [place] [address]Dr. Airam Tripathi MCH (RBC) [Entitic mass] 30.4 pg Normal 26.7-34.0 [facility] Comment on above: Performed By: #### C BC ####[facility] Sitpffmxji[address] [place] [address]Dr. Airam Deuce MCHC (RBC) [Mass/Vol] 31.7 g/dL Normal 29.9-35.2 [facility] Comment on above: Performed By: #### C BC ####[facility] Yvstndqmyr4146 [place] [address]Dr. Airam Deuce MCV (RBC) [Entitic vol] 95.9 fL Normal 81.0-99.0 [facility] Comment on above: Performed By: #### C BC ####[facility] Eeddkonzzd[address] [place], [place] [address]Dr. Airam Tripathi MONO # 0.5 103/ul Normal 0.3-0.8 [facility] Comment on above: Performed By: #### C BC ####[facility] Fbwdcrapav26[address] [place] [address]Dr. Airam Tripathi Monocytes/100 WBC (Bld) 6.0 % Normal 1.7-12.0 [facility] Comment on above: Performed By: #### C BC ####[facility] Eluysiygnv[address] [place] [address]Dr. Airam Tripathi NEUT # 5.6 103/ul Normal 1.4-6.5 [facility] Comment on above: Performed By: #### C BC ####[facility] Eiepmzlfkc1613[address] [place], [place] [address]Dr. Airam Tripathi Neutrophils/100 WBC (Bld) 64.8 % Normal 43.0-75.0 [facility] Comment on above: Performed By: #### C BC ####[facility] Poxbbqabkq5135[address] [place], [place] [address]Dr. Airam Tripathi Platelet mean volume (Bld) [Entitic vol] 9.2 fL Critically low 9.5-13.5 [facility] Comment on above: Performed By: #### C BC ####[facility] Briirewukf[address] [place] [address]Dr. Airam Deuce PLT 296 103/ul Normal 150-450 [facility] Comment on above: Performed By: #### C BC ####[facility] Zsvlyealgd3865[address] [place], [place] [address]Dr. Airam Tripathi RBC 3.19 106/ul Critically low 4.20-5.40 [facility] Comment on above: Performed By: #### C BC ####[facility] Lyxuyqmmzy301[address] [place], [place] [address]Dr. Airam Deuce WBC 8.6 103/ul Normal 4.0-11.0 [facility] Comment on above: Performed By: #### C BC ####[facility] Sarioabmxl[address] [place] [address]Dr. Airam Tripathi PROF 14(COMP METB)on 04-14- 022 Albumin [Mass/Vol] 3.2 g/dL Critically low 3.4-5.0 [facility] Comment on above: Performed By: #### C MP ####[facility] Ssfjedmtnb[address] [place] [address]DrKianna Tripathi Albumin/Globulin [Mass ratio] 1.0 {ratio} Normal [facility] Comment on above: Performed By: #### C MP ####[facility] Rtwhyddemq8404[address] [place], [place] [address]Dr. Airam Tripathi ALP [Catalytic activity/Vol] 126 U/L Critically high 46-116 [facility] Comment on above: Performed By: #### C MP ####[facility] Fdwkmtixea9590[address] [place], [place] [address]Dr. Airam Tripathi ALT [Catalytic activity/Vol] 27 U/L Normal 14-59 [facility] Comment on above: Performed By: #### C MP ####[facility] Ctqnobzxqz556[address] [place], [place] [address]Dr. Airam Tripathi Anion gap [Moles/Vol] 9.6 mmol/L Normal [facility] Comment on above: Performed By: #### C MP ####[facility] Nrrzhignno677[address] [place], [place] [address]DrKianna Tripathi AST [Catalytic activity/Vol] 25 U/L Normal 15-37 [facility] Comment on above: Performed By: #### C MP ####[facility] Xihctcqxza432[address] [place], [place] [address]DrKianna Tripathi Bilirubin [Mass/Vol] 0.3 mg/dL Normal 0.2-1.0 [facility] Comment on above: Performed By: #### C MP ####[facility] Hkhfkkjmly7464[address] [place], [place] [address]DrKianna Tripathi Calcium [Mass/Vol] 8.1 mg/dL Critically low 8.5-10.1 Th [facility] Comment on above: Performed By: #### C MP ####[facility] Xxgapuhbwy4404[address] [place], [place] [address]Dr. Airam Tripathi Chloride [Moles/Vol] 100 mmol/L Normal 98-107 [facility] Comment on above: Performed By: #### C MP ####[facility] Lkgyowsxpm[address] [place] [address]Dr. Airam Deuce CO2 [Moles/Vol] 26.5 mmol/L Normal 21.0-32.0 [facility] Comment on above: Performed By: #### C MP ####[facility] Kjbhljmakq[address] [place], [place] [address]Dr. Airam Deuce Creatinine [Mass/Vol] 1.52 mg/dL Critically high 0.55-1.02 [facility] Comment on above: Performed By: #### C MP ####[facility] Kraevuosvl29[address] [place], [place] [address]Dr. Selenaneil Deuce EGFR-AF LUXEMBOURGER 42 mL/min/1.73m2 Critically low >=60 [facility] Comment on above: Performed By: #### C MP ####[facility] Uuqhkweilb[address] [place], [place] [address]Dr. Airam Deuce EGFR-NON AF LUXEMBOURGER 35 mL/min/1.73m2 Critically low >=60 [facility] Comment on above: Performed By: #### C MP ####[facility] Dpoqctisdv34[address] [place], [place] [address]Dr. Airam Tripathi Globulin (S) [Mass/Vol] 3.3 g/dL Normal [facility] Comment on above: Performed By: #### C MP ####[facility] Xadlqdauyb127[address] [place], [place] [address]Dr. Airam Tripathi Glucose [Mass/Vol] 75 mg/dL Normal 74-106 [facility] Comment on above: Performed By: #### C MP ####[facility] Taixrwakiy5740[address] [place], [place] [address]Dr. Airam Tripathi Potassium [Moles/Vol] 4.1 mmol/L Normal 3.5-5.1 [facility] Comment on above: Performed By: #### C MP ####[facility] Fyhhpwqhtx69[address] [place], [place] [address]Dr. Airam Tripathi Protein [Mass/Vol] 6.5 g/dL Normal 6.4-8.2 [facility] Comment on above: Performed By: #### C MP ####[facility] Uybsfhdqcg9624[address] [place], [place] [address]DrKianna Airam Deuce Sodium [Moles/Vol] 132 mmol/L Critically low 136-145 [facility] Comment on above: Performed By: #### C MP ####[facility] Zxmgitywis[address] [place], [place] [address]DrKianna Airam Deuce Urea nitrogen [Mass/Vol] 40.0 mg/dL Critically high 7.0-18.0 [facility] Comment on above: Performed By: #### C MP ####[facility] Vkpibtwznn34[address] [place], [place] [address]Dr. Airam Tripathi Urea nitrogen/Creatinine [Mass ratio] 26.3 mg/mg Normal [facility] Comment on above: Performed By: #### C MP ####[facility] Kwxbjlgeeg2375[address] [place], [place] [address]DrKianna Airam Deuce OSMOLALITYon 04-10-2022 Osmolality [Osmolality] 280 mosm/kg Normal 275-295 [facility] Comment on above: Performed By: #### O SMO ####[facility] Iacuvkzohf25[address] [place], [place] [address]DrKianna Airam Deuce PTH INTACTon 04-09-2022 PTH, Intact 89 pg/mL Critically high 15-65 [facility] Comment on above: Performed By: #### P THINT ####[facility] Phcoxjlslc257[address] [place], [place] [address]DrKianna Airam Deuce CBC W MANUAL DIFFon 04-08-20 22 ATYPICAL LYMPH # Normal [facility] Comment on above: Performed By: #### C BCMAN ####[facility] Keaejoyjhm64[address] [place], [place] [address]DrKianna Tripathi ATYPICAL LYMPH % Normal [facility] Comment on above: Performed By: #### C BCMAN ####[facility] Xvwtmyscdn[address] [place], [place] [address]DrKianna Tripathi BAND # Normal 0.0-0.3 [facility] Comment on above: Performed By: #### C BCMAN ####[facility] Enxirajqzt[address] [place] [address]Dr. Yilan Tripathi BAND % Normal 0-5 [facility] Comment on above: Performed By: #### C BCMAN ####[facility] Huqytbluhh[address] [place] [id number]. Yineil Tripathi BASOM # 0.00 103/ul Normal 0.00-0.10 [facility] Comment on above: Performed By: #### C BCMAN ####[facility] Vipffmnlkn[address] [place] [address]Dr. Yineil Tripathi BASOM % 0.0 % Critically low 0.2-2.0 [facility] Comment on above: Performed By: #### C BCGERALDINE ####[facility] Cnidspcuka3[address] [place], [place] [address]Dr. Yineil Tripathi BLAST # Normal [facility] Comment on above: Performed By: #### C BCMAN ####[facility] Vebnfgwbuh112[address] [place], [place] [address]Dr. Yineil Tripathi BLAST % Normal [facility] Comment on above: Performed By: #### C BCMAN ####[facility] Lbzwaivexe4301[address] [place], [place] [address]Dr. Airam Tripathi CORRECTED WBC Normal 4.0-11.0 [facility] Comment on above: Performed By: #### C BCMAN ####[facility] Vcvjojsysi[address] [place], [place] [address]Dr. Yineil Tripathi EOS # 0.00 103/ul Normal 0.00-0.70 [facility] Comment on above: Performed By: #### C BCMAN ####[facility] Nxhoaokxfp[address] [place], [place] [address]Dr. Airam Tripathi EOS% 0.0 % Critically low 0.9-7.0 [facility] Comment on above: Performed By: #### C BCMAN ####[facility] Afhotewdjw[address] [place], [place] [address]Dr. Yilan Tripathi HCT 29.7 % Critically low 36.0-48.0 [facility] Comment on above: Performed By: #### C CHRISTEN ####[facility] Ashazdgnif[address] [place] [id number]. Airam Tripathi HGB 9.5 g/dl Critically low 12.0-16.0 [facility] Comment on above: Performed By: #### C CHRISTEN ####[facility] Rcwpozothq67[address] [place] [phone]. Airam Tripathi LYMPHM # 0.42 103/ul Critically low 1.20-3.80 [facility] Comment on above: Performed By: #### C CHRISTEN ####[facility] Dukrxjrbng[address] [place] [phone]. Airam Tripathi LYMPHM% 7.0 % Critically low 20.5-60.0 [facility] Comment on above: Performed By: #### C CHRISTEN ####[facility] Vclftbkcrw[address] [place] [phone]. Airam Tripathi MCH 30.9 pg Normal 26.7-34.0 [facility] Comment on above: Performed By: #### C CHRISTEN ####[facility] Dnrmobtaer3[address] [place] [phone]. Airam Tripathi MCHC 32.0 g/dl Normal 29.9-35.2 [facility] Comment on above: Performed By: #### C CHRISTEN ####[facility] Alxnlklqrz32[address] [place] [phone]. Airam Tripathi MCV 96.7 fL Normal 81.0-99.0 [facility] Comment on above: Performed By: #### C CHRISTEN ####[facility] Fftcjsntru9320 [place] [phone]. Airam Tripathi METAMYELOCYTE # Normal [facility] Comment on above: Performed By: #### C CHRISTEN ####[facility] Lntrtvvavz45[address] [place], [place] [address]Ns. Airam Tripathi METAMYELOCYTE % Normal [facility] Comment on above: Performed By: #### C CHRISTEN ####[facility] Hnprwfpwka7057 [place] [phone]. Airam Tripathi MONOM# 0.36 103/ul Normal 0.30-0.80 [facility] Comment on above: Performed By: #### C CHRISTEN ####[facility] Yuygloeont[address] [place] [phone]. Airam Tripathi MONOM% 6.0 % Normal 1.7-12.0 [facility] Comment on above: Performed By: #### C CHRISTEN ####[facility] Cdevejsskw[address] [place] [address]Dr. Airam Tripathi MPV 9.5 fL Normal 9.5-13.5 [facility] Comment on above: Performed By: #### C CHRISTEN ####[facility] Lnnuzkvbaf[address] [place], [place] [address]Dr. Airam Tripathi MYELOCYTE # Normal [facility] Comment on above: Performed By: #### C CHRISTEN ####[facility] Kquhdxbssz3432[address] [place], [place] [address]Dr. Airam Tripathi MYELOCYTE % Normal [facility] Comment on above: Performed By: #### Joede VELÁSQUEZ ####[facility] Drnnzsgcuv7875[address] [place], [place] [address]Dr. Airam Tripathi NRBC Normal [facility] Comment on above: Performed By: #### C CHRISTEN ####[facility] Zefxbxheej76[address] [place] [phone]. Airam Tripathi PLT 185 103/ul Normal 150-450 [facility] Comment on above: Performed By: #### C CHRISTEN ####[facility] Lfqpxqdxgi[address] [place], [place] [address]Dr. Airam Tripathi RBC 3.07 106/ul Critically low 4.20-5.40 [facility] Comment on above: Performed By: #### C CHRISTEN ####[facility] Vqjlzashkr124[address] [place], [place] [address]Dr. Airam Tripathi RDW 13.6 % Normal 11.0-15.0 [facility] Comment on above: Performed By: #### C CHRISTEN ####[facility] Pfpetefffq15[address] [place] [phone]. Airam Tripathi SEG # 5.22 103/ul Normal 1.40-6.50 [facility] Comment on above: Performed By: #### C CHRISTEN ####[facility] Ijyqdneeir5[address] [place] [phone]. Airam Tripathi SEG % 87.0 % Critically high 43.0-75.0 [facility] Comment on above: Performed By: #### C CHRISTEN ####[facility] Evtqqsanym8984 [place] [phone]. Airam Tripathi WBC 6.0 103/ul Normal 4.0-11.0 [facility] Comment on above: Performed By: #### C CHRISTEN ####[facility] Zpuavossya[address] [place] [address]Dr. Airam Tripathi FREE THYROXINE INDEX T7on FTI 1.57 Normal 1.30-4.50 [facility] Comment on above: Performed By: #### T 7, TSH, CMP ####[facility] Krgoqahheq9454[address] [place], [place] [address]Dr. Airam Tripathi T3U 32.0 % Normal 30.0-39.0 [facility] Comment on above: Performed By: #### T 7, TSH, CMP ####[facility] Nsjjapnsxq9168 [place] [phone]. Airam Tripathi T4 [Mass/Vol] 4.90 ug/dL Normal 4.80-13.90 [facility] Comment on above: Performed By: #### T 7, TSH, CMP ####[facility] Oxdwzcixfu7[address] [place], [place] [address]DrKianna Selenaneil Tripathi PROF 14(COMP METB)on 022 Albumin [Mass/Vol] 3.0 g/dL Critically low 3.4-5.0 e [facility] Comment on above: Performed By: #### T 7, TSH, CMP ####[facility] Bergqtwnrw[address] [place] [id number]. Airam Tripathi Albumin/Globulin [Mass ratio] 1.0 {ratio} Normal [facility] Comment on above: Performed By: #### T 7, TSH, CMP ####[facility] Fmccxsrnda35[address] [place] [address]Dr. Airam Tripathi ALP [Catalytic activity/Vol] 106 U/L Normal 46-116 [facility] Comment on above: Performed By: #### T 7, TSH, CMP ####[facility] Lqgpeubqgx9[address] [place], [place] [address]Dr. Airam Tripathi ALT [Catalytic activity/Vol] 20 U/L Normal 14-59 [facility] Comment on above: Performed By: #### T 7, TSH, CMP ####[facility] Ukaqzwltne9940[address] [place], [place] [address]Dr. Airam Tripathi Anion gap [Moles/Vol] 10.8 mmol/L Normal [facility] Comment on above: Performed By: #### T 7, TSH, CMP ####[facility] Vmgvfdnyvt865[address] [place], [place] [address]Dr. Airam Tripathi AST [Catalytic activity/Vol] 19 U/L Normal 15-37 [facility] Comment on above: Performed By: #### T 7, TSH, CMP ####[facility] Vfzterjsof7485[address] [place], [place] [address]Dr. Airam Tripathi Bilirubin [Mass/Vol] 0.3 mg/dL Normal 0.2-1.0 [facility] Comment on above: Performed By: #### T 7, TSH, CMP ####[facility] Aztomiwomq735[address] [place], [place] [address]Dr. Airam Tripathi Calcium [Mass/Vol] 8.0 mg/dL Critically low 8.5-10.1 [facility] Comment on above: Performed By: #### T 7, TSH, CMP ####[facility] Khjlyolgpn5638[address] [place], [place] [address]Dr. Airam Tripathi Chloride [Moles/Vol] 100 mmol/L Normal 98-107 [facility] Comment on above: Performed By: #### T 7, TSH, CMP ####[facility] Pyjglpnnzm414[address] [place], [place] [address]Dr. Airam Tripathi CO2 [Moles/Vol] 24.3 mmol/L Normal 21.0-32.0 [facility] Comment on above: Performed By: #### T 7, TSH, CMP ####[facility] Fbafvwvbcz217[address] [place], [place] [address]Dr. Airam Tripathi Creatinine [Mass/Vol] 1.12 mg/dL Critically high 0.55-1.02 [facility] Comment on above: Performed By: #### T 7, TSH, CMP ####[facility] Lrbanfbllr358[address] [place], [place] [address]Dr. Airam Tripathi EGFR-AF LUXEMBOURGER 60 mL/min/1.73m2 Normal >=60 [facility] Comment on above: Performed By: #### T 7, TSH, CMP ####[facility] Cnezaffkto7501[address] [place], [place] [address]Dr. Airam Tripathi EGFR-NON AF LUXEMBOURGER 50 mL/min/1.73m2 Critically low >=60 [facility] Comment on above: Performed By: #### T 7, TSH, CMP ####[facility] Lrzuuqynkp8575[address] [place], [place] [address]Dr. Airam Tripathi Globulin (S) [Mass/Vol] 3.0 g/dL Normal [facility] Comment on above: Performed By: #### T 7, TSH, CMP ####[facility] Cbglcyqgly074[address] [place], [place] [address]Dr. Airam Tripathi Glucose [Mass/Vol] 76 mg/dL Normal 74-106 [facility] Comment on above: Performed By: #### T 7, TSH, CMP ####[facility] Bwihdkpnkb1084[address] [place], [place] [address]Dr. Airam Tripathi Potassium [Moles/Vol] 4.1 mmol/L Normal 3.5-5.1 [facility] Comment on above: Performed By: #### T 7, TSH, CMP ####[facility] Obvwgtxzec0515[address] [place], [place] [address]Dr. Airam Tripathi Protein [Mass/Vol] 6.0 g/dL Critically low 6.4-8.2 [facility] Comment on above: Performed By: #### T 7, TSH, CMP ####[facility] Tipmqcdxte4385[address] [place], [place] [address]Dr. Airam Tripathi Sodium [Moles/Vol] 131 mmol/L Critically low 136-145 Th [facility] Comment on above: Performed By: #### T 7, TSH, CMP ####[facility] Frusizktct0440[address] [place], [place] [address]Dr. Airam Deuce Urea nitrogen [Mass/Vol] 32.0 mg/dL Critically high 7.0-18.0 [facility] Comment on above: Performed By: #### T 7, TSH, CMP ####[facility] Ibkbjjwywe3204[address] [place], [place] [address]Dr. Selenaneil Tripathi Urea nitrogen/Creatinine [Mass ratio] 28.6 mg/mg Normal [facility] Comment on above: Performed By: #### T 7, TSH, CMP ####[facility] Ksiunvssck[address] [place], [place] [address]Dr. Airam Tripathi TSHon 04-08-2022 TSH 0.027 uIU/mL Critically low 0.358-3.74 0 [facility] Comment on above: Performed By: #### T 7, TSH, CMP ####[facility] Axhgwgfiyb0118[address] [place], [place] [address]Dr. Airam Tripathi UA RANDOMon 04-08-2022 Bilirubin Ql (U) Negative Normal NEGATIVE [facility] Comment on above: Performed By: #### U A ####[facility] Sbonxqdwti[address] [place], [place] [address]Dr. Airam Tripathi Clarity (U) CLEAR Normal CLEAR [facility] Comment on above: Performed By: #### U A ####[facility] Oojoxzexmm5774[address] [place], [place] [address]Dr. Airam Tripathi Color (U) LT. YELLOW Normal YELLOW [facility] Comment on above: Performed By: #### U A ####[facility] Pswayqlxui640[address] [place], [place] [address]Dr. Airam Tripathi Glucose Ql (U) Negative Normal NEGATIVE [facility] Comment on above: Performed By: #### U A ####[facility] Jouxjuwuhf[address] [place] [address]Dr. Airam Tripathi Hemoglobin Ql (U) Negative Normal NEGATIVE [facility] Comment on above: Performed By: #### U A ####[facility] Eleuxvkdkd012[address] [place], [place] [address]Dr. Airam Tripathi Ketones Ql (U) Negative Normal NEGATIVE [facility] Comment on above: Performed By: #### U A ####[facility] Igisoqlzqg095[address] [place], [place] [address]Dr. Airam Tripathi LEUKOCYTES Negative Normal NEGATIVE [facility] Comment on above: Performed By: #### U A ####[facility] Lvovptawqe2694[address] [place], [place] [address]Dr. Airam Tripathi Nitrite Ql (U) Negative Normal NEGATIVE [facility] Comment on above: Performed By: #### U A ####[facility] Fehttptfrj6036[address] [place], [place] [address]Dr. Airam Tripathi pH (U) 6.0 [pH] Normal 5-9 [facility] Comment on above: Performed By: #### U A ####[facility] Rrkfkxgulp9[address] [place], [place] [address]Dr. Airam Tripathi SPEC GRAVITY 1.010 Normal 1.005-<=1. 025 [facility] Comment on above: Performed By: #### U A ####[facility] Xnmqpkuwae5754[address] [place], [place] [address]Dr. Airam Tripathi UA PROTEIN Negative Normal NEGATIVE/ TRACE [facility] Comment on above: Performed By: #### U A ####[facility] Uqjzdgkdpj8308[address] [place], [place] [address]Dr. Airam Tripathi Urobilinogen Qn (U) 0.2 {Ligia'U}/dL Normal 0.2 - 1. 0 [facility] Comment on above: Performed By: #### U A ####[facility] Mzzowadojp149[address] [place], [place] [address]Dr. iAram Tripathi URINE T PROTEIN CREAT RATIOo n 04-08-2022 UR PROT CREAT RAT 0.32 Normal [facility] Comment on above: Performed By: #### U RTPCR ####[facility] L[address]uebe[address]tc[address] [place] [address]Dr. Airam Tripathi UR TOTAL PROTEIN <6.0 Normal <=12.0 [facility] Comment on above: Performed By: #### U RTPCR ####[facility] Hdkqbjhfip[address] [place] [address]Dr. Airam Tripathi URINE CREAT 18.75 mg/dL Critically low 20.00-300. 00 [facility] Comment on above: Performed By: #### U RTPCR ####[facility] Fiircwsyyg4654[address] [place], [place] [address]Dr. Airam Tripathi FERRITINon 04-06-2022 Ferritin [Mass/Vol] 99.0 ng/mL Normal 8.0-252.0 [facility] Comment on above: Performed By: #### F ETIBC, VITAD, FERR ####[facility] Iyixocjoea2125[address] [place], [place] [address]Dr. Airam Tripathi IRON AND TIBCon 04-06-2022 % SATURATION 15.4 % Normal [facility] Comment on above: Performed By: #### F ETIBC, VITAD, FERR ####[facility] Osgsyreujc650[address] [place], [place] [address]Dr. Airam Tripathi Iron [Mass/Vol] 43.0 ug/dL Critically low 50.0-170.0 [facility] Comment on above: Performed By: #### F ETIBC, VITAD, FERR ####[facility] Zbgltijiet769[address] [place], [place] [address]Dr. Airam Tripathi TIBC DIRECT 280.0 ug/dL Normal 250.0-450. 0 [facility] Comment on above: Performed By: #### F ETIBC, VITAD, FERR ####[facility] Zyooaunocv1050[address] [place], [place] [address]Dr. Airam Tripathi PROF 14(COMP METB)on 022 Albumin [Mass/Vol] 3.2 g/dL Critically low 3.4-5.0 [facility] Comment on above: Performed By: #### C MP, URIC ####[facility] Bnoomnpjyh[address] [place] [phone]. Airam Tripathi Albumin/Globulin [Mass ratio] 1.0 {ratio} Normal [facility] Comment on above: Performed By: #### C MP, URIC ####[facility] Ihpnsijrtp0064 [place], [place] [address]Zm. Airam Tripathi ALP [Catalytic activity/Vol] 118 U/L Critically high 46-116 [facility] Comment on above: Performed By: #### C MP, URIC ####[facility] Snsrptvkde90[address] [place] [phone]. Airam Deuce ALT [Catalytic activity/Vol] 24 U/L Normal 14-59 [facility] Comment on above: Performed By: #### C MP, URIC ####[facility] Zsibeoypwc4819 [place] [phone]. Airam Tripathi Anion gap [Moles/Vol] 14.4 mmol/L Normal [facility] Comment on above: Performed By: #### C MP, URIC ####[facility] Bfsvuzlyrm1734 [place] [phone]. Airam Deuce AST [Catalytic activity/Vol] 21 U/L Normal 15-37 [facility] Comment on above: Performed By: #### C MP, URIC ####[facility] Tkebqkqwoi35[address] [place] [phone]. Selenaneil Tripathi Bilirubin [Mass/Vol] 0.3 mg/dL Normal 0.2-1.0 [facility] Comment on above: Performed By: #### C MP, URIC ####[facility] Nzumorwgrs85[address] [place] [phone]. Selenaneil Tripathi Calcium [Mass/Vol] 8.0 mg/dL Critically low 8.5-10.1 [facility] Comment on above: Performed By: #### C MP, URIC ####[facility] Ggwerzlbip27[address] [place] [phone]. Airam Tripathi Chloride [Moles/Vol] 98 mmol/L Normal 98-107 [facility] Comment on above: Performed By: #### C MP, URIC ####[facility] Kmetjxxriv95[address] [place] [phone]. Airam Tripathi CO2 [Moles/Vol] 22.0 mmol/L Normal 21.0-32.0 [facility] Comment on above: Performed By: #### C MP, URIC ####[facility] Abmlttobzh[address] [place] [address]Dr. Airam Tripathi Creatinine [Mass/Vol] 1.86 mg/dL Critically high 0.55-1.02 [facility] Comment on above: Performed By: #### C MP, URIC ####[facility] Ecqsabyoec[address] [place] [address]Dr. Airam Tripathi EGFR-AF LUXEMBOURGER 33 mL/min/1.73m2 Critically low >=60 [facility] Comment on above: Performed By: #### C MP, URIC ####[facility] Ugbgbjciok[address] [place], [place] [address]Dr. Airam Tripathi EGFR-NON AF LUXEMBOURGER 28 mL/min/1.73m2 Critically low >=60 [facility] Comment on above: Performed By: #### C MP, URIC ####[facility] Yuyfgjcdde3734[address] [place], [place] [address]Dr. Airam Tripathi Globulin (S) [Mass/Vol] 3.1 g/dL Normal [facility] Comment on above: Performed By: #### C MP, URIC ####[facility] Spbptnitty8078[address] [place], [place] [address]Dr. Airam Tripathi Glucose [Mass/Vol] 93 mg/dL Normal 74-106 [facility] Comment on above: Performed By: #### C MP, URIC ####[facility] Qpcjyqynto318[address] [place], [place] [address]Dr. Airam Tripathi Potassium [Moles/Vol] 4.4 mmol/L Normal 3.5-5.1 [facility] Comment on above: Performed By: #### C MP, URIC ####[facility] Kevhcorqpy23[address] [place], [place] [address]Dr. Airam Tripathi Protein [Mass/Vol] 6.3 g/dL Critically low 6.4-8.2 Th [facility] Comment on above: Performed By: #### C MP, URIC ####[facility] Ixotfqaggq[address] [place] [address]Dr. Airam Tripathi Sodium [Moles/Vol] 130 mmol/L Critically low 136-145 Th [facility] Comment on above: Performed By: #### C MP, URIC ####[facility] Etlikwwkip[address] [place] [address]Dr. Airam Tripathi Urea nitrogen [Mass/Vol] 49.0 mg/dL Critically high 7.0-18.0 [facility] Comment on above: Performed By: #### C MP, URIC ####[facility] Eekyspjfjs[address] [place], [place] [address]Dr. Airam Tripathi Urea nitrogen/Creatinine [Mass ratio] 26.3 mg/mg Normal [facility] Comment on above: Performed By: #### C MP, URIC ####[facility] Skjvkdwbgn[address] [place], [place] [address]Dr. Airam Tripathi URIC ACID SERUMon 04-06-2022 Urate [Mass/Vol] 6.5 mg/dL Critically high 2.6-6.0 [facility] Comment on above: Performed By: #### C MP, URIC ####[facility] Bidabmyffe[address] [place], [place] [address]Dr. Airam Tripathi VITAMIN D 25 OHon 04-06-2022 VIT D 25-OH 74.5 ng/mL Normal [facility] Comment on above: Performed By: #### F ETIBC, VITAD, FERR ####[facility] Roxzxnysud78[address] [place], [place] [address]Dr. Airam Tripathi VIT D RANGES SEE BELOW Normal [facility] Comment on above: Result Comment: <20 ng/mL Vit D deficient 20 - <30 ng/mL Vit D insufficient 30 - 100 ng/mL Vit D sufficient >100 ng/mL Potential Toxicity Performed By: #### F ETIBC, VITAD, FERR ####[facility] Umcwjnpzui[address] [place], [place] [address]Dr. Airam Tripathi OSMOLALITYon 04-01-2022 Osmolality [Osmolality] 284 mosm/kg Normal 275-295 [facility] Comment on above: Performed By: #### O SMO ####[facility] [address]vzb[address] [place] [address]Dr. Airam Tripathi CBC AUTO DIFFon 03-31-2022 BASO # 0.0 103/ul Normal 0.0-0.1 [facility] Comment on above: Performed By: #### C BC ####[facility] Aenybcolsq[address] [place], [place] [address]Dr. Airam Tripathi Basophils/100 WBC (Bld) 0.3 % Normal 0.2-2.0 [facility] Comment on above: Performed By: #### C BC ####[facility] Ohpixvdzdt[address] [place], [place] [address]Dr. Airam Tripathi EO # 0.1 103/ul Normal 0.0-0.7 [facility] Comment on above: Performed By: #### C BC ####[facility] Yelhzpwzam119[address] [place], [place] [address]Dr. Airam Tripathi Eosinophils/100 WBC (Bld) 2.0 % Normal 0.9-7.0 [facility] Comment on above: Performed By: #### C BC ####[facility] Vqtavvheml1317[address] [place], [place] [address]Dr. Airam Tripathi Erythrocyte distribution width (RBC) [Ratio] 13.5 % Normal 11.0-15.0 [facility] Comment on above: Performed By: #### C BC ####[facility] Zklmzlaafs[address] [place], [place] [address]Dr. Airam Tripathi Hematocrit (Bld) [Volume fraction] 32.5 % Critically low 36.0-48.0 [facility] Comment on above: Performed By: #### C BC ####[facility] Wgnchjlpzn058[address] [place], [place] [address]Dr. Airam Tripathi Hemoglobin (Bld) [Mass/Vol] 10.1 g/dL Critically low 12.0-16.0 [facility] Comment on above: Performed By: #### C BC ####[facility] Xzyfwwmhur8515[address] [place], [place] [address]Dr. Airam Tripathi IG # 0.03 10e3/ul Normal 0.00-0.03 [facility] Comment on above: Performed By: #### C BC ####[facility] Dagzenjebp[address] [place] [address]DrKianna Airam Tripathi IG % 0.4 % Normal 0.0-0.5 [facility] Comment on above: Performed By: #### C BC ####[facility] Qcxbcmnmkg6697 [place] [address]DrKianna Airam Deuce LYMPH # 1.6 103/ul Normal 1.2-3.8 [facility] Comment on above: Performed By: #### C BC ####[facility] Qkdhsejxeq056[address] [place], [place] [address]DrKianna Airam Deuce Lymphocytes/100 WBC (Bld) 22.6 % Normal 20.5-60.0 [facility] Comment on above: Performed By: #### C BC ####[facility] Gpnodepsuo[address] [place], [place] [address]DrKianna Airam Deuce MANUAL DIFF REQ NO Normal [facility] Comment on above: Performed By: #### C BC ####[facility] Heglfccotg0057[address] [place], [place] [address]DrKianna Airam Deuce MCH (RBC) [Entitic mass] 30.5 pg Normal 26.7-34.0 [facility] Comment on above: Performed By: #### C BC ####[facility] Imtfpizrsx4915[address] [place], [place] [address]DrKianna Airam Deuce MCHC (RBC) [Mass/Vol] 31.1 g/dL Normal 29.9-35.2 [facility] Comment on above: Performed By: #### C BC ####[facility] Lxoxloglhj15[address] [place] [address]DrKianna Airam Deuce MCV (RBC) [Entitic vol] 98.2 fL Normal 81.0-99.0 [facility] Comment on above: Performed By: #### C BC ####[facility] Ztfbfaktad8815[address] [place], [place] [address]DrKianna Tripathi MONO # 0.5 103/ul Normal 0.3-0.8 [facility] Comment on above: Performed By: #### C BC ####[facility] Ryxdxemxwm2249 [place] [address]Dr. Airam Tripathi Monocytes/100 WBC (Bld) 7.3 % Normal 1.7-12.0 [facility] Comment on above: Performed By: #### C BC ####[facility] Ogdygdcypg9200 [place] [address]Dr. Airam Tripathi NEUT # 4.7 103/ul Normal 1.4-6.5 [facility] Comment on above: Performed By: #### C BC ####[facility] Ciszfxifes8960 [place] [address]Dr. Airam Tripathi Neutrophils/100 WBC (Bld) 67.4 % Normal 43.0-75.0 [facility] Comment on above: Performed By: #### C BC ####[facility] Jdbizpbtsu318[address] [place], [place] [address]Dr. Airam Tripathi Platelet mean volume (Bld) [Entitic vol] 9.5 fL Normal 9.5-13.5 [facility] Comment on above: Performed By: #### C BC ####[facility] Zobextuvne7799[address] [place], [place] [address]Dr. Airam Tripathi PLT 273 103/ul Normal 150-450 [facility] Comment on above: Performed By: #### C BC ####[facility] Wrzqncfifo2713 [place] [address]Dr. Airam Tripathi RBC 3.31 106/ul Critically low 4.20-5.40 [facility] Comment on above: Performed By: #### C BC ####[facility] Eigfguugvz175[address] [place], [place] [address]Dr. Airam Tripathi WBC 7.0 103/ul Normal 4.0-11.0 [facility] Comment on above: Performed By: #### C BC ####[facility] Nyddzyirkc1593 [place] [address]DrKianna Tripathi PROF 14(COMP METB)on 022 Albumin [Mass/Vol] 3.4 g/dL Normal 3.4-5.0 [facility] Comment on above: Performed By: #### C MP ####[facility] Tlqyfzhpdc69[address] [place] [address]Dr. Airam Deuce Albumin/Globulin [Mass ratio] 1.1 {ratio} Normal [facility] Comment on above: Performed By: #### C MP ####[facility] Efpvknxbln2947 [place] [address]Dr. Selenaneil Tripathi ALP [Catalytic activity/Vol] 107 U/L Normal 46-116 [facility] Comment on above: Performed By: #### C MP ####[facility] Qwtuemdjjb668[address] [place], [place] [address]Dr. Selenaneil Tripathi ALT [Catalytic activity/Vol] 22 U/L Normal 14-59 [facility] Comment on above: Performed By: #### C MP ####[facility] Echakkqrlu6137[address] [place], [place] [address]Dr. Airam Tripathi Anion gap [Moles/Vol] 6.8 mmol/L Normal [facility] Comment on above: Performed By: #### C MP ####[facility] Vqdmpuwrhs7299[address] [place], [place] [address]Dr. Selenaneil Tripathi AST [Catalytic activity/Vol] 23 U/L Normal 15-37 [facility] Comment on above: Performed By: #### C MP ####[facility] Qkvnlsywll9023[address] [place], [place] [address]Dr. Airam Tripathi Bilirubin [Mass/Vol] 0.2 mg/dL Normal 0.2-1.0 [facility] Comment on above: Performed By: #### C MP ####[facility] Hidrvlwefr021[address] [place], [place] [address]Dr. Airam Tripathi Calcium [Mass/Vol] 8.4 mg/dL Critically low 8.5-10.1 [facility] Comment on above: Performed By: #### C MP ####[facility] Pnwhpmrgck529[address] [place], [place] [address]Dr. Airam Tripathi Chloride [Moles/Vol] 100 mmol/L Normal 98-107 [facility] Comment on above: Performed By: #### C MP ####[facility] Edupquysws[address] [place] [id number]. Airam Tripathi CO2 [Moles/Vol] 29.9 mmol/L Normal 21.0-32.0 [facility] Comment on above: Performed By: #### C MP ####[facility] Xftjfosuvo0751 [place] [id number]. Airam Tripathi Creatinine [Mass/Vol] 1.20 mg/dL Critically high 0.55-1.02 [facility] Comment on above: Performed By: #### C MP ####[facility] Raooetqrec6[address] [place] [id number]. Airam Tripathi EGFR-AF LUXEMBOURGER 56 mL/min/1.73m2 Critically low >=60 [facility] Comment on above: Performed By: #### C MP ####[facility] Ykgdvzokgr[address] [place] [address]Dr. Airam Tripathi EGFR-NON AF LUXEMBOURGER 46 mL/min/1.73m2 Critically low >=60 [facility] Comment on above: Performed By: #### C MP ####[facility] Uauqbhevue15[address] [place] [address]Dr. Airam Tripathi Globulin (S) [Mass/Vol] 3.0 g/dL Normal [facility] Comment on above: Performed By: #### C MP ####[facility] Yrkezjalvy2196 [place] [address]Dr. Airam Deuce Glucose [Mass/Vol] 57 mg/dL Critically low 74-106 [facility] Comment on above: Performed By: #### C MP ####[facility] Ptibtolmkk9527 [place] [id number]. Airam Tripathi Potassium [Moles/Vol] 3.7 mmol/L Normal 3.5-5.1 [facility] Comment on above: Performed By: #### C MP ####[facility] Vaauosxskt8235 [place] [id number]. Airam Deuce Protein [Mass/Vol] 6.4 g/dL Normal 6.4-8.2 [facility] Comment on above: Performed By: #### C MP ####[facility] Bwcrnbnabz24[address] [place], [place] [address]Dr. Airam Tripathi Sodium [Moles/Vol] 133 mmol/L Critically low 136-145 [facility] Comment on above: Performed By: #### C MP ####[facility] Vztkuibwub8285[address] [place], [place] [address]Dr. Airam Deuce Urea nitrogen [Mass/Vol] 39.0 mg/dL Critically high 7.0-18.0 [facility] Comment on above: Performed By: #### C MP ####[facility] Tnkluscxyy917[address] [place], [place] [address]Dr. Airam Deuce Urea nitrogen/Creatinine [Mass ratio] 32.5 mg/mg Normal [facility] Comment on above: Performed By: #### C MP ####[facility] Mvnwoxsohn6315[address] [place], [place] [address]DrKianna Airam Deuce OSMOLALITYon 03-24-2022 Osmolality [Osmolality] 285 mosm/kg Normal 275-295 [facility] Comment on above: Performed By: #### O SMO ####[facility] Auzaorhudk6[address] [place], [place] [address]Dr. Airam Deuce CBC AUTO DIFFon 03-22-2022 BASO # 0.0 103/ul Normal 0.0-0.1 [facility] Comment on above: Performed By: #### C BC ####[facility] Djgggmbyqp736[address] [place], [place] [address]Dr. Airam Deuce Basophils/100 WBC (Bld) 0.4 % Normal 0.2-2.0 [facility] Comment on above: Performed By: #### C BC ####[facility] Vgejbjbkty218[address] [place], [place] [address]Dr. Airam Tripathi EO # 0.2 103/ul Normal 0.0-0.7 [facility] Comment on above: Performed By: #### C BC ####[facility] Toedihvuvi622[address] [place], [place] [address]Dr. Selenaneil Tripathi Eosinophils/100 WBC (Bld) 2.3 % Normal 0.9-7.0 [facility] Comment on above: Performed By: #### C BC ####[facility] Mejiunyoty1974[address] [place], [place] [address]Dr. Airam Tripathi Erythrocyte distribution width (RBC) [Ratio] 13.9 % Normal 11.0-15.0 [facility] Comment on above: Performed By: #### C BC ####[facility] Xqtiovjvzd955[address] [place], [place] [address]DrKianna Tripathi Hematocrit (Bld) [Volume fraction] 32.6 % Critically low 36.0-48.0 [facility] Comment on above: Performed By: #### C BC ####[facility] Ylntxsgnpn6790[address] [place], [place] [address]DrKianna Tripathi Hemoglobin (Bld) [Mass/Vol] 10.3 g/dL Critically low 12.0-16.0 [facility] Comment on above: Performed By: #### C BC ####[facility] Lefigbkzgz9560[address] [place], [place] [address]DrKianna Tripathi IG # 0.11 10e3/ul Critically high 0.00-0.03 [facility] Comment on above: Performed By: #### C BC ####[facility] Nqhibsxhlh4623[address] [place], [place] [address]DrKianna Tripathi IG % 1.4 % Critically high 0.0-0.5 [facility] Comment on above: Performed By: #### C BC ####[facility] Scadyxisru457[address] [place], [place] [address]DrKianna Tripathi LYMPH # 1.3 103/ul Normal 1.2-3.8 [facility] Comment on above: Performed By: #### C BC ####[facility] Xzrawimxwy1616[address] [place], [place] [address]DrKianna Tripathi Lymphocytes/100 WBC (Bld) 15.9 % Critically low 20.5-60.0 [facility] Comment on above: Performed By: #### C BC ####[facility] Jtdahqtbdq0044[address] [place], [place] [address]DrKianna Tripathi MANUAL DIFF REQ NO Normal [facility] Comment on above: Performed By: #### C BC ####[facility] Jxlvahatjx1823 [place] [id number]. Airam Tripathi MCH (RBC) [Entitic mass] 30.7 pg Normal 26.7-34.0 [facility] Comment on above: Performed By: #### C BC ####[facility] Styuqqlqvk7[address] [place] [address]Dr. Airam Tripathi MCHC (RBC) [Mass/Vol] 31.6 g/dL Normal 29.9-35.2 [facility] Comment on above: Performed By: #### C BC ####[facility] Gtsifjvvej287[address] [place], [place] [address]DrKianna Tripathi MCV (RBC) [Entitic vol] 97.0 fL Normal 81.0-99.0 [facility] Comment on above: Performed By: #### C BC ####[facility] Dzeievicqq7210[address] [place], [place] [address]DrKianna Tripathi MONO # 0.6 103/ul Normal 0.3-0.8 [facility] Comment on above: Performed By: #### C BC ####[facility] Jqhqtbyxtf674[address] [place], [place] [address]DrKianna Tripathi Monocytes/100 WBC (Bld) 6.9 % Normal 1.7-12.0 [facility] Comment on above: Performed By: #### C BC ####[facility] Smykwbxmmp5499[address] [place], [place] [address]DrKianna Tripathi NEUT # 5.9 103/ul Normal 1.4-6.5 [facility] Comment on above: Performed By: #### C BC ####[facility] Ibffjtprvk697[address] [place], [place] [address]DrKianna Tripathi Neutrophils/100 WBC (Bld) 73.1 % Normal 43.0-75.0 [facility] Comment on above: Performed By: #### C BC ####[facility] Zxbotdszsn3608[address] [place], [place] [address]DrKianna Tripathi Platelet mean volume (Bld) [Entitic vol] 9.5 fL Normal 9.5-13.5 [facility] Comment on above: Performed By: #### C BC ####[facility] Pbhwgnqjks4676 [place] [address]Dr. Selenaneil Deuce PLT 313 103/ul Normal 150-450 [facility] Comment on above: Performed By: #### C BC ####[facility] Deccgkhwga1393 [place] [address]Dr. Selenaneil Deuce RBC 3.36 106/ul Critically low 4.20-5.40 [facility] Comment on above: Performed By: #### C BC ####[facility] Koikitxfjr4340 [place] [address]Dr. Airam Tripathi WBC 8.1 103/ul Normal 4.0-11.0 [facility] Comment on above: Performed By: #### C BC ####[facility] Kkvaxeiwfr0073 [place] [address]DrKianna Tripathi PROF 14(COMP METB)on 022 Albumin [Mass/Vol] 3.3 g/dL Critically low 3.4-5.0 [facility] Comment on above: Performed By: #### C MP ####[facility] Bdntkyncmn2658[address] [place], [place] [address]Dr. Airam Tripathi Albumin/Globulin [Mass ratio] 1.0 {ratio} Normal [facility] Comment on above: Performed By: #### C MP ####[facility] Dkgpcnslpo6199 [place] [address]Dr. Airam Tripathi ALP [Catalytic activity/Vol] 113 U/L Normal 46-116 [facility] Comment on above: Performed By: #### C MP ####[facility] Aaygzyzfiu225[address] [place], [place] [address]Dr. Airam Tripathi ALT [Catalytic activity/Vol] 21 U/L Normal 14-59 [facility] Comment on above: Performed By: #### C MP ####[facility] Ifulriwboz2688[address] [place], [place] [address]Dr. Airam Tripathi Anion gap [Moles/Vol] 12.2 mmol/L Normal Th [facility] Comment on above: Performed By: #### C MP ####[facility] Diidweqeeb8830 [place] [address]Dr. Airam Tripathi AST [Catalytic activity/Vol] 21 U/L Normal 15-37 [facility] Comment on above: Performed By: #### C MP ####[facility] Ieskblildy1888[address] [place], [place] [address]Dr. Airam Tripathi Bilirubin [Mass/Vol] 0.2 mg/dL Normal 0.2-1.0 [facility] Comment on above: Performed By: #### C MP ####[facility] Gdvsxvvcrk824[address] [place], [place] [address]Dr. Airam Tripathi Calcium [Mass/Vol] 8.4 mg/dL Critically low 8.5-10.1 [facility] Comment on above: Performed By: #### C MP ####[facility] Gviwgblear1732[address] [place], [place] [address]Dr. Airam Tripathi Chloride [Moles/Vol] 103 mmol/L Normal 98-107 [facility] Comment on above: Performed By: #### C MP ####[facility] Roedftojvk660[address] [place], [place] [address]Dr. Airam Tripathi CO2 [Moles/Vol] 24.4 mmol/L Normal 21.0-32.0 [facility] Comment on above: Performed By: #### C MP ####[facility] Llzxwqsdeo4768[address] [place], [place] [address]Dr. Airam Tripathi Creatinine [Mass/Vol] 1.11 mg/dL Critically high 0.55-1.02 [facility] Comment on above: Performed By: #### C MP ####[facility] Jgzospcupo646[address] [place], [place] [address]Dr. Airam Tripathi EGFR-AF LUXEMBOURGER >60 Normal >=60 [facility] Comment on above: Performed By: #### C MP ####[facility] Ccxywavepl5412 [place] [address]Dr. Airam Tripathi EGFR-NON AF LUXEMBOURGER 50 mL/min/1.73m2 Critically low >=60 [facility] Comment on above: Performed By: #### C MP ####[facility] Hvslagiklh65[address] [place] [address]Dr. Airam Tripathi Globulin (S) [Mass/Vol] 3.2 g/dL Normal [facility] Comment on above: Performed By: #### C MP ####[facility] Kwwptuhzdu[address] [place] [address]Dr. Airam Tripathi Glucose [Mass/Vol] 84 mg/dL Normal 74-106 [facility] Comment on above: Performed By: #### C MP ####[facility] Pbgmvhxbty8624 [place] [address]Dr. Airam Deuce Potassium [Moles/Vol] 4.6 mmol/L Normal 3.5-5.1 [facility] Comment on above: Performed By: #### C MP ####[facility] Cygzwjfksg1027[address] [place], [place] [address]Dr. Airam Deuce Protein [Mass/Vol] 6.5 g/dL Normal 6.4-8.2 [facility] Comment on above: Performed By: #### C MP ####[facility] Qcerlmapjj330[address] [place], [place] [address]Dr. Airam Deuce Sodium [Moles/Vol] 135 mmol/L Critically low 136-145 [facility] Comment on above: Performed By: #### C MP ####[facility] Eprvqxmkdd2084 [place] [address]Dr. Airam Deuce Urea nitrogen [Mass/Vol] 39.0 mg/dL Critically high 7.0-18.0 [facility] Comment on above: Performed By: #### C MP ####[facility] Lwlwznbqys557[address] [place], [place] [address]Dr. Airam Deuce Urea nitrogen/Creatinine [Mass ratio] 35.1 mg/mg Normal [facility] Comment on above: Performed By: #### C MP ####[facility] Reezqtxjxh9129 [place] [address]Dr. Airam Deuce OSMOLALITYon 03-17-2022 Osmolality [Osmolality] 277 mosm/kg Normal 275-295 [facility] Comment on above: Performed By: #### O SMO ####[facility] Nnaeiwzdig526[address] [place], [place] [address]Dr. Airam Tripathi CBC AUTO DIFFon 03-15-2022 BASO # 0.0 103/ul Normal 0.0-0.1 [facility] Comment on above: Performed By: #### C BC ####[facility] Vmzoestsky1110[address] [place], [place] [address]Dr. Airam Tripathi Basophils/100 WBC (Bld) 0.4 % Normal 0.2-2.0 [facility] Comment on above: Performed By: #### C BC ####[facility] Ezpumeimli08119[address] [place], [place] [address]DrKianna Tripathi EO # 0.1 103/ul Normal 0.0-0.7 [facility] Comment on above: Performed By: #### C BC ####[facility] Iavmkargjz0823[address] [place], [place] [address]Dr. Airam Tripathi Eosinophils/100 WBC (Bld) 2.4 % Normal 0.9-7.0 [facility] Comment on above: Performed By: #### C BC ####[facility] Hyskcrupja4816[address] [place], [place] [address]Dr. Airam Tripathi Erythrocyte distribution width (RBC) [Ratio] 13.9 % Normal 11.0-15.0 [facility] Comment on above: Performed By: #### C BC ####[facility] Oppmafdwyt0665[address] [place], [place] [address]Dr. Airam Tripathi Hematocrit (Bld) [Volume fraction] 31.2 % Critically low 36.0-48.0 [facility] Comment on above: Performed By: #### C BC ####[facility] Oavefnhbkp459[address] [place], [place] [address]Dr. Airam Tripathi Hemoglobin (Bld) [Mass/Vol] 9.9 g/dL Critically low 12.0-16.0 [facility] Comment on above: Performed By: #### C BC ####[facility] Hzwxmgnnmz1550[address] [place], [place] [address]Dr. Airam Tripathi IG # 0.03 10e3/ul Normal 0.00-0.03 [facility] Comment on above: Performed By: #### C BC ####[facility] Iklqewpkmh6[address] [place] [address]Dr. Airam Deuce IG % 0.6 % Critically high 0.0-0.5 [facility] Comment on above: Performed By: #### C BC ####[facility] Nodilymvxh5106 [place] [address]DrKianna Airam Deuce LYMPH # 1.5 103/ul Normal 1.2-3.8 [facility] Comment on above: Performed By: #### C BC ####[facility] Qnsnvhmwkp6406 [place] [address]DrKianna Selenaneil Tripathi Lymphocytes/100 WBC (Bld) 29.4 % Normal 20.5-60.0 [facility] Comment on above: Performed By: #### C BC ####[facility] Ehsxjauhla[address] [place], [place] [address]DrKianna Airam Deuce MANUAL DIFF REQ NO Normal [facility] Comment on above: Performed By: #### C BC ####[facility] Rrcgxsjdvg974[address] [place], [place] [address]DrKianna Airam Deuce MCH (RBC) [Entitic mass] 30.5 pg Normal 26.7-34.0 [facility] Comment on above: Performed By: #### C BC ####[facility] Tebuiouobt[address] [place] [address]DrKianna Waltersneil Deuce MCHC (RBC) [Mass/Vol] 31.7 g/dL Normal 29.9-35.2 [facility] Comment on above: Performed By: #### C BC ####[facility] Sotgziahik[address] [place], [place] [address]DrKianna Tripathi MCV (RBC) [Entitic vol] 96.0 fL Normal 81.0-99.0 [facility] Comment on above: Performed By: #### C BC ####[facility] Iwgpzuiacu[address] [place], [place] [address]DrKianna Tripathi MONO # 0.4 103/ul Normal 0.3-0.8 [facility] Comment on above: Performed By: #### C BC ####[facility] Vfmnyoftzo[address] [place] [address]Dr. Airam Tripathi Monocytes/100 WBC (Bld) 7.0 % Normal 1.7-12.0 [facility] Comment on above: Performed By: #### C BC ####[facility] Ozegcpmxdx[address] [place] [address]Dr. Airam Tripathi NEUT # 3.0 103/ul Normal 1.4-6.5 [facility] Comment on above: Performed By: #### C BC ####[facility] Eqipcrgglf77[address] [place] [address]Dr. Airam Tripathi Neutrophils/100 WBC (Bld) 60.2 % Normal 43.0-75.0 [facility] Comment on above: Performed By: #### C BC ####[facility] Tjxjcwbsfr[address] [place], [place] [address]Dr. Airam Tripathi Platelet mean volume (Bld) [Entitic vol] 9.6 fL Normal 9.5-13.5 [facility] Comment on above: Performed By: #### C BC ####[facility] Rtpabqigbg1994[address] [place], [place] [address]Dr. Airam Tripathi PLT 258 103/ul Normal 150-450 [facility] Comment on above: Performed By: #### C BC ####[facility] Mqlglhewbw[address] [place] [address]Dr. Airam Tripathi RBC 3.25 106/ul Critically low 4.20-5.40 [facility] Comment on above: Performed By: #### C BC ####[facility] Vdrmxekfab[address] [place] [address]Dr. Airam Tripathi WBC 5.0 103/ul Normal 4.0-11.0 [facility] Comment on above: Performed By: #### C BC ####[facility] Fzcrqeearc[address] [place] [address]DrKianna Tripathi PROF 14(COMP METB)on 09-20-2 022 Albumin [Mass/Vol] 3.3 g/dL Critically low 3.4-5.0 Th [facility] Comment on above: Performed By: #### C MP ####[facility] Tosixlytue[address] [place] [address]Dr. Selenaneil Deuce Albumin/Globulin [Mass ratio] 1.1 {ratio} Normal [facility] Comment on above: Performed By: #### C MP ####[facility] Snqsootvye69[address] [place] [address]Dr. Airam Tripathi ALP [Catalytic activity/Vol] 106 U/L Normal 46-116 [facility] Comment on above: Performed By: #### C MP ####[facility] Xdvxjbjvjk6[address] [place], [place] [address]Dr. Airam Tripathi ALT [Catalytic activity/Vol] 22 U/L Normal 14-59 [facility] Comment on above: Performed By: #### C MP ####[facility] Bzqanoiove4450[address] [place], [place] [address]Dr. Ariam Tripathi Anion gap [Moles/Vol] 11.4 mmol/L Normal Th [facility] Comment on above: Performed By: #### C MP ####[facility] Wzuzcsgjay[address] [place], [place] [address]Dr. Airam Tripathi AST [Catalytic activity/Vol] 22 U/L Normal 15-37 [facility] Comment on above: Performed By: #### C MP ####[facility] Sysstaiblw070[address] [place], [place] [address]Dr. Airam Tripathi Bilirubin [Mass/Vol] 0.3 mg/dL Normal 0.2-1.0 [facility] Comment on above: Performed By: #### C MP ####[facility] Olfdqioyvg174[address] [place], [place] [address]Dr. Airam Tripathi Calcium [Mass/Vol] 8.1 mg/dL Critically low 8.5-10.1 Th [facility] Comment on above: Performed By: #### C MP ####[facility] Vdqpzxtavb9090[address] [place], [place] [address]Dr. Airam Tripathi Chloride [Moles/Vol] 100 mmol/L Normal 98-107 [facility] Comment on above: Performed By: #### C MP ####[facility] Mjeffhrjon4[address] [place] [address]Dr. Airam Tripathi CO2 [Moles/Vol] 25.6 mmol/L Normal 21.0-32.0 [facility] Comment on above: Performed By: #### C MP ####[facility] Iogdamdsrn7[address] [place] [address]Dr. Airam Deuce Creatinine [Mass/Vol] 1.21 mg/dL Critically high 0.55-1.02 [facility] Comment on above: Performed By: #### C MP ####[facility] Kvmozmlkwg01[address] [place] [address]Dr. Airam Deuce EGFR-AF LUXEMBOURGER 55 mL/min/1.73m2 Critically low >=60 [facility] Comment on above: Performed By: #### C MP ####[facility] Gdicewfouo9[address] [place] [address]Dr. Airam Deuce EGFR-NON AF LUXEMBOURGER 45 mL/min/1.73m2 Critically low >=60 [facility] Comment on above: Performed By: #### C MP ####[facility] Tzrjhsxdoc255[address] [place], [place] [address]Dr. Airam Deuce Globulin (S) [Mass/Vol] 3.0 g/dL Normal [facility] Comment on above: Performed By: #### C MP ####[facility] Ouljcxaktn8471 [place] [address]Dr. Airam Tripathi Glucose [Mass/Vol] 84 mg/dL Normal 74-106 [facility] Comment on above: Performed By: #### C MP ####[facility] Vyycfqmzml3281 [place] [address]Dr. Selenaneil Tripathi Potassium [Moles/Vol] 4.0 mmol/L Normal 3.5-5.1 [facility] Comment on above: Performed By: #### C MP ####[facility] Pussaamnuj4[address] [place] [address]Dr. Airam Tripathi Protein [Mass/Vol] 6.3 g/dL Critically low 6.4-8.2 Th [facility] Comment on above: Performed By: #### C MP ####[facility] Vgkprimfbj737[address] [place], [place] [address]Dr. Airam Tripathi Sodium [Moles/Vol] 133 mmol/L Critically low 136-145 Th [facility] Comment on above: Performed By: #### C MP ####[facility] Nwdfbqxxrk9668[address] [place], [place] [address]Dr. Airam Tripathi Urea nitrogen [Mass/Vol] 29.0 mg/dL Critically high 7.0-18.0 [facility] Comment on above: Performed By: #### C MP ####[facility] Fvmvuthzxx0138[address] [place], [place] [address]Dr. Airam Tripathi Urea nitrogen/Creatinine [Mass ratio] 24.0 mg/mg Normal [facility] Comment on above: Performed By: #### C MP ####[facility] Qbecwajkcq966[address] [place], [place] [address]Dr. Airam Tripathi OSMOLALITYon 03-12-2022 Osmolality [Osmolality] 285 mosm/kg Normal 275-295 [facility] Comment on above: Performed By: #### O SMO ####[facility] Ekflndnbwh9930[address] [place], [place] [address]Dr. Airam Tripathi CBC AUTO DIFFon 03-10-2022 BASO # 0.0 103/ul Normal 0.0-0.1 [facility] Comment on above: Performed By: #### C BC ####[facility] Tpliijicnk674[address] [place], [place] [address]Dr. Airam Tripathi Basophils/100 WBC (Bld) 0.3 % Normal 0.2-2.0 [facility] Comment on above: Performed By: #### C BC ####[facility] Tmwmwhonmj716[address] [place], [place] [address]DrKianna Tripathi EO # 0.2 103/ul Normal 0.0-0.7 [facility] Comment on above: Performed By: #### C BC ####[facility] Ufvhbcvhlp4135[address] [place], [place] [address]Dr. Airam Tripathi Eosinophils/100 WBC (Bld) 2.7 % Normal 0.9-7.0 [facility] Comment on above: Performed By: #### C BC ####[facility] Vyexpqgkdl3733[address] [place], [place] [address]Dr. Airam Tripathi Erythrocyte distribution width (RBC) [Ratio] 14.4 % Normal 11.0-15.0 [facility] Comment on above: Performed By: #### C BC ####[facility] Hibfkgvrpb6112[address] [place], [place] [address]Dr. Airam Tripathi Hematocrit (Bld) [Volume fraction] 32.5 % Critically low 36.0-48.0 [facility] Comment on above: Performed By: #### C BC ####[facility] Zmliobixny0484[address] [place], [place] [address]Dr. Airam Tripathi Hemoglobin (Bld) [Mass/Vol] 10.1 g/dL Critically low 12.0-16.0 [facility] Comment on above: Performed By: #### C BC ####[facility] Znhwuoxegc4030[address] [place], [place] [address]Dr. Airam Tripathi IG # 0.03 10e3/ul Normal 0.00-0.03 [facility] Comment on above: Performed By: #### C BC ####[facility] Vmmzhomqsl064[address] [place], [place] [address]Dr. Airam Tripathi IG % 0.4 % Normal 0.0-0.5 [facility] Comment on above: Performed By: #### C BC ####[facility] Ezmwzttjno0835[address] [place], [place] [address]Dr. Airam Tripathi LYMPH # 1.4 103/ul Normal 1.2-3.8 [facility] Comment on above: Performed By: #### C BC ####[facility] Kgwcpuizwx9397[address] [place], [place] [address]Dr. Airam Tripathi Lymphocytes/100 WBC (Bld) 19.4 % Critically low 20.5-60.0 [facility] Comment on above: Performed By: #### C BC ####[facility] Inkedmcouq2380[address] [place], [place] [address]DrKianna Tripathi MANUAL DIFF REQ NO Normal [facility] Comment on above: Performed By: #### C BC ####[facility] Etuhkwseut[address] [place] [address]Dr. Airam Tripathi MCH (RBC) [Entitic mass] 30.6 pg Normal 26.7-34.0 [facility] Comment on above: Performed By: #### C BC ####[facility] Okbtmihxgy299[address] [place], [place] [address]DrKianna Tripathi MCHC (RBC) [Mass/Vol] 31.1 g/dL Normal 29.9-35.2 [facility] Comment on above: Performed By: #### C BC ####[facility] Xmraoitaxq465[address] [place], [place] [address]DrKianna Tripathi MCV (RBC) [Entitic vol] 98.5 fL Normal 81.0-99.0 [facility] Comment on above: Performed By: #### C BC ####[facility] Ubavnclsfu0016[address] [place], [place] [address]DrKianna Tripathi MONO # 0.5 103/ul Normal 0.3-0.8 [facility] Comment on above: Performed By: #### C BC ####[facility] Ygwxpbemqu623[address] [place], [place] [address]DrKianna Tripathi Monocytes/100 WBC (Bld) 6.7 % Normal 1.7-12.0 [facility] Comment on above: Performed By: #### C BC ####[facility] Weqvplhygt3970[address] [place], [place] [address]DrKianna Tripathi NEUT # 5.2 103/ul Normal 1.4-6.5 [facility] Comment on above: Performed By: #### C BC ####[facility] Hnhbssctie7734[address] [place], [place] [address]DrKianna Tripathi Neutrophils/100 WBC (Bld) 70.5 % Normal 43.0-75.0 [facility] Comment on above: Performed By: #### C BC ####[facility] Dvlveasquf960[address] [place], [place] [address]DrKianna Tripathi Platelet mean volume (Bld) [Entitic vol] 9.8 fL Normal 9.5-13.5 [facility] Comment on above: Performed By: #### C BC ####[facility] Dwcdzxstri47[address] [place] [id number] Tripathi PLT 277 103/ul Normal 150-450 [facility] Comment on above: Performed By: #### C BC ####[facility] Qnidmpqvve5063 [place] [address]DrKianna Tripathi RBC 3.30 106/ul Critically low 4.20-5.40 [facility] Comment on above: Performed By: #### C BC ####[facility] Jcyrwvplfx3936 [place] [address]DrKianna Tripathi WBC 7.4 103/ul Normal 4.0-11.0 [facility] Comment on above: Performed By: #### C BC ####[facility] Ngdjfrsrvw7440 [place] [address]Dr. Airam Tripathi PROF 14(COMP METB)on 022 Albumin [Mass/Vol] 3.6 g/dL Normal 3.4-5.0 [facility] Comment on above: Performed By: #### C MP ####[facility] Mhptcuueca2268[address] [place], [place] [address]DrKianna Tripathi Albumin/Globulin [Mass ratio] 1.1 {ratio} Normal [facility] Comment on above: Performed By: #### C MP ####[facility] Tbluyxzaus[address] [place] [address]DrKianna Tripathi ALP [Catalytic activity/Vol] 112 U/L Normal 46-116 [facility] Comment on above: Performed By: #### C MP ####[facility] Wvstvjcxtk2152 [place] [address]DrKianna Tripathi ALT [Catalytic activity/Vol] 26 U/L Normal 14-59 [facility] Comment on above: Performed By: #### C MP ####[facility] Mxsbwsefse704[address] [place], [place] [address]DrKianna Tripathi Anion gap [Moles/Vol] 12.0 mmol/L Normal Th e [facility] Comment on above: Performed By: #### C MP ####[facility] Qnrqqrtxyh8926 [place] [address]Dr. Airam Deuce AST [Catalytic activity/Vol] 25 U/L Normal 15-37 [facility] Comment on above: Performed By: #### C MP ####[facility] Vbijkvlzwg3190[address] [place], [place] [address]Dr. Airam Tripathi Bilirubin [Mass/Vol] 0.4 mg/dL Normal 0.2-1.0 [facility] Comment on above: Performed By: #### C MP ####[facility] Tovatlbvyt997[address] [place], [place] [address]Dr. Airam Tripathi Calcium [Mass/Vol] 8.9 mg/dL Normal 8.5-10.1 [facility] Comment on above: Performed By: #### C MP ####[facility] Gptmwglslo563[address] [place], [place] [address]Dr. Airam Tripathi Chloride [Moles/Vol] 101 mmol/L Normal 98-107 [facility] Comment on above: Performed By: #### C MP ####[facility] Gnaiqfbhsf579695 [address] [place], [place] [address]Dr. Airam Tripathi CO2 [Moles/Vol] 24.0 mmol/L Normal 21.0-32.0 [facility] Comment on above: Performed By: #### C MP ####[facility] Cwtgqjmzht2188[address] [place], [place] [address]Dr. Airam Tripathi Creatinine [Mass/Vol] 1.51 mg/dL Critically high 0.55-1.02 [facility] Comment on above: Performed By: #### C MP ####[facility] Utttnqddyz6948[address] [place], [place] [address]Dr. Airam Tripathi EGFR-AF LUXEMBOURGER 43 mL/min/1.73m2 Critically low >=60 [facility] Comment on above: Performed By: #### C MP ####[facility] Ltwzdfwcxr432[address] [place], [place] [address]Dr. Airam Tripathi EGFR-NON AF LUXEMBOURGER 35 mL/min/1.73m2 Critically low >=60 [facility] Comment on above: Performed By: #### C MP ####[facility] Vuaafdftif6411 [place] [address]Dr. Airam Tripathi Globulin (S) [Mass/Vol] 3.2 g/dL Normal [facility] Comment on above: Performed By: #### C MP ####[facility] Tigobveazu4998 [place] [address]Dr. Airam Tripathi Glucose [Mass/Vol] 82 mg/dL Normal 74-106 [facility] Comment on above: Performed By: #### C MP ####[facility] Pvlclghocw039[address] [place], [place] [address]Dr. Airam Tripathi Potassium [Moles/Vol] 4.0 mmol/L Normal 3.5-5.1 [facility] Comment on above: Performed By: #### C MP ####[facility] Ctisuvxjyg444[address] [place], [place] [address]Dr. Airam Tripathi Protein [Mass/Vol] 6.8 g/dL Normal 6.4-8.2 [facility] Comment on above: Performed By: #### C MP ####[facility] Xfoztjmexs4928[address] [place], [place] [address]Dr. Airam Tripathi Sodium [Moles/Vol] 133 mmol/L Critically low 136-145 [facility] Comment on above: Performed By: #### C MP ####[facility] Itmhjgzjbm422[address] [place], [place] [address]Dr. Airam Tripathi Urea nitrogen [Mass/Vol] 37.0 mg/dL Critically high 7.0-18.0 [facility] Comment on above: Performed By: #### C MP ####[facility] Pfssdhwdav3437[address] [place], [place] [address]Dr. Airam Tripathi Urea nitrogen/Creatinine [Mass ratio] 24.5 mg/mg Normal [facility] Comment on above: Performed By: #### C MP ####[facility] Sjlxzmtyig4447[address] [place], [place] [address]Dr. Airam Tripathi OSMOLALITYon 03-07-2022 Osmolality [Osmolality] 284 mosm/kg Normal 275-295 [facility] Comment on above: Performed By: #### O SMO ####[facility] Rtivltqyne7587 [place] [address]Dr. Airam Tripathi CBC AUTO DIFFon 03-04-2022 BASO # 0.0 103/ul Normal 0.0-0.1 [facility] Comment on above: Performed By: #### C BC ####[facility] Ejssvyxove2887[address] [place], [place] [address]Dr. Airam Tripathi Basophils/100 WBC (Bld) 0.3 % Normal 0.2-2.0 [facility] Comment on above: Performed By: #### C BC ####[facility] Sjssdysftg652[address] [place], [place] [address]Dr. Airam Tripathi EO # 0.1 103/ul Normal 0.0-0.7 [facility] Comment on above: Performed By: #### C BC ####[facility] Mehdgqtupy1658[address] [place], [place] [address]Dr. Airam Tripathi Eosinophils/100 WBC (Bld) 2.0 % Normal 0.9-7.0 [facility] Comment on above: Performed By: #### C BC ####[facility] Idjbkszcsk2967[address] [place], [place] [address]Dr. Airam Tripathi Erythrocyte distribution width (RBC) [Ratio] 14.5 % Normal 11.0-15.0 [facility] Comment on above: Performed By: #### C BC ####[facility] Zuaizirdrm202[address] [place], [place] [address]Dr. Airam Tripathi Hematocrit (Bld) [Volume fraction] 35.4 % Critically low 36.0-48.0 [facility] Comment on above: Performed By: #### C BC ####[facility] Emgmoultqh257[address] [place], [place] [address]Dr. Airam Tripathi Hemoglobin (Bld) [Mass/Vol] 11.0 g/dL Critically low 12.0-16.0 [facility] Comment on above: Performed By: #### C BC ####[facility] Mtvicpfodv6549 [place] [address]Dr. Airam Tripathi IG # 0.03 10e3/ul Normal 0.00-0.03 [facility] Comment on above: Performed By: #### C BC ####[facility] Necsftrdmt2183 [place] [address]Dr. Airam Tripathi IG % 0.4 % Normal 0.0-0.5 [facility] Comment on above: Performed By: #### C BC ####[facility] Iawlzsuobm7607[address] [place], [place] [address]DrKianna Tripathi LYMPH # 1.7 103/ul Normal 1.2-3.8 [facility] Comment on above: Performed By: #### C BC ####[facility] Wymwnnlkje537[address] [place], [place] [address]DrKianna Tripathi Lymphocytes/100 WBC (Bld) 23.8 % Normal 20.5-60.0 [facility] Comment on above: Performed By: #### C BC ####[facility] Pwnqtnpoyv5214[address] [place], [place] [address]DrKianna Tripathi MANUAL DIFF REQ NO Normal [facility] Comment on above: Performed By: #### C BC ####[facility] Bqytdypejz230[address] [place], [place] [address]DrKianna Tripathi MCH (RBC) [Entitic mass] 30.0 pg Normal 26.7-34.0 [facility] Comment on above: Performed By: #### C BC ####[facility] Ehrkjysyvc213[address] [place], [place] [address]DrKianna Tripathi MCHC (RBC) [Mass/Vol] 31.1 g/dL Normal 29.9-35.2 [facility] Comment on above: Performed By: #### C BC ####[facility] Mxatfoykxh566[address] [place], [place] [address]DrKianna Tripathi MCV (RBC) [Entitic vol] 96.5 fL Normal 81.0-99.0 [facility] Comment on above: Performed By: #### C BC ####[facility] Fbjssowclm8615[address] [place], [place] [address]DrKianna Tripathi MONO # 0.5 103/ul Normal 0.3-0.8 [facility] Comment on above: Performed By: #### C BC ####[facility] Zxyhhzswsh7208 [place] [address]DrKianna Tripathi Monocytes/100 WBC (Bld) 6.6 % Normal 1.7-12.0 [facility] Comment on above: Performed By: #### C BC ####[facility] Otcqjwnajd238[address] [place], [place] [address]DrKianna Tripathi NEUT # 4.7 103/ul Normal 1.4-6.5 [facility] Comment on above: Performed By: #### C BC ####[facility] Ihnhniyilq3685[address] [place], [place] [address]DrKianna Airam Tripathi Neutrophils/100 WBC (Bld) 66.9 % Normal 43.0-75.0 [facility] Comment on above: Performed By: #### C BC ####[facility] Jymwrfyxqg230[address] [place], [place] [address]DrKianna Airam Tripathi Platelet mean volume (Bld) [Entitic vol] 10.2 fL Normal 9.5-13.5 [facility] Comment on above: Performed By: #### C BC ####[facility] Uzuksnfyoh244[address] [place], [place] [address]Dr. Airam Tripathi PLT 270 103/ul Normal 150-450 [facility] Comment on above: Performed By: #### C BC ####[facility] Hflegscytc18[address] [place], [place] [address]DrKianna Airam Tripathi RBC 3.67 106/ul Critically low 4.20-5.40 [facility] Comment on above: Performed By: #### C BC ####[facility] Itasmehmuf0[address] [place], [place] [address]DrKianna Airam Tripathi WBC 7.0 103/ul Normal 4.0-11.0 [facility] Comment on above: Performed By: #### C BC ####[facility] Ozrfdzyxyj7836[address] [place], [place] [address]DrKianna Tripathi PROF 14(COMP METB)on 022 Albumin [Mass/Vol] 3.3 g/dL Critically low 3.4-5.0 [facility] Comment on above: Performed By: #### C MP ####[facility] Pgkjkouiln80[address] [place] [address]Dr. Airam Tripathi Albumin/Globulin [Mass ratio] 1.0 {ratio} Normal [facility] Comment on above: Performed By: #### C MP ####[facility] Nqtqtsdcsx2684[address] [place], [place] [address]Dr. Airam Tripathi ALP [Catalytic activity/Vol] 107 U/L Normal 46-116 [facility] Comment on above: Performed By: #### C MP ####[facility] Njrnclnzzb894[address] [place], [place] [address]Dr. Airam Tripathi ALT [Catalytic activity/Vol] 23 U/L Normal 14-59 [facility] Comment on above: Performed By: #### C MP ####[facility] Uglhhltrbf3816[address] [place], [place] [address]Dr. Airam Tripathi Anion gap [Moles/Vol] 13.0 mmol/L Normal Th [facility] Comment on above: Performed By: #### C MP ####[facility] Hukepisihx5237[address] [place], [place] [address]Dr. Airam Tripathi AST [Catalytic activity/Vol] 30 U/L Normal 15-37 [facility] Comment on above: Performed By: #### C MP ####[facility] Vzccjfiotq314[address] [place], [place] [address]Dr. Airam Tripathi Bilirubin [Mass/Vol] 0.2 mg/dL Normal 0.2-1.0 [facility] Comment on above: Performed By: #### C MP ####[facility] Ikjdiadhjj729[address] [place], [place] [address]Dr. Airam Tripathi Calcium [Mass/Vol] 8.8 mg/dL Normal 8.5-10.1 [facility] Comment on above: Performed By: #### C MP ####[facility] Llwnyucjcu06[address] [place], [place] [address]Dr. Airam Tripathi Chloride [Moles/Vol] 103 mmol/L Normal 98-107 [facility] Comment on above: Performed By: #### C MP ####[facility] Rmjsxldzlp[address] [place] [address]Dr. Airam Deuce CO2 [Moles/Vol] 24.9 mmol/L Normal 21.0-32.0 [facility] Comment on above: Performed By: #### C MP ####[facility] Pjzpnlcyvk28[address] [place] [address]Dr. Airam Tripathi Creatinine [Mass/Vol] 1.06 mg/dL Critically high 0.55-1.02 [facility] Comment on above: Performed By: #### C MP ####[facility] Dvnmenbaib[address] [place], [place] [address]Dr. Airam Tripathi EGFR-AF LUXEMBOURGER >60 Normal >=60 [facility] Comment on above: Performed By: #### C MP ####[facility] Csvynrrkau[address] [place] [address]Dr. Airam Tripathi EGFR-NON AF LUXEMBOURGER 53 mL/min/1.73m2 Critically low >=60 [facility] Comment on above: Performed By: #### C MP ####[facility] Onvigklobm[address] [place], [place] [address]Dr. Airam Tripathi Globulin (S) [Mass/Vol] 3.2 g/dL Normal [facility] Comment on above: Performed By: #### C MP ####[facility] Eayfzefcoo[address] [place] [address]Dr. Airam Tripathi Glucose [Mass/Vol] 91 mg/dL Normal 74-106 [facility] Comment on above: Performed By: #### C MP ####[facility] Vrzvtxleyo7[address] [place] [address]Dr. Airam Tripathi Potassium [Moles/Vol] 3.9 mmol/L Normal 3.5-5.1 [facility] Comment on above: Performed By: #### C MP ####[facility] Uzrclgtwyd5[address] [place] [address]Dr. Airam Tripathi Protein [Mass/Vol] 6.5 g/dL Normal 6.4-8.2 [facility] Comment on above: Performed By: #### C MP ####[facility] Qbhdhxmwhj43[address] [place], [place] [address]DrKianna Tripathi Sodium [Moles/Vol] 137 mmol/L Normal 136-145 [facility] Comment on above: Performed By: #### C MP ####[facility] Mhwoxjnetb5[address] [place], [place] [address]DrKianna Tripathi Urea nitrogen [Mass/Vol] 27.0 mg/dL Critically high 7.0-18.0 [facility] Comment on above: Performed By: #### C MP ####[facility] Lbbmpnxehe0[address] [place], [place] [address]Dr. Airam Tripathi Urea nitrogen/Creatinine [Mass ratio] 25.5 mg/mg Normal [facility] Comment on above: Performed By: #### C MP ####[facility] Kozvxgonij9[address] [place], [place] [address]DrKianna Tripathi OSMOLALITYon 03-03-2022 Osmolality [Osmolality] 383 mosm/kg Invalid Interpretation Code [id number] [facility] Comment on above: Result Comment: Ve rified by repeat analysis Performed By: #### O SMO ####[facility] Dwnedvpfpy225[address] [place], [place] [address]DrKianna Tripathi CBC AUTO DIFFon 02-22-2022 BASO # 0.0 103/ul Normal 0.0-0.1 [facility] Comment on above: Performed By: #### C BC ####[facility] Nqzxsmeyvr3[address] [place], [place] [address]DrKianna Tripathi Basophils/100 WBC (Bld) 0.4 % Normal 0.2-2.0 [facility] Comment on above: Performed By: #### C BC ####[facility] Jiwvujyike9098[address] [place], [place] [address]DrKianna Tripathi EO # 0.2 103/ul Normal 0.0-0.7 [facility] Comment on above: Performed By: #### C BC ####[facility] Rwoqbwhagl[address] [place], [place] [address]DrKianna Tripathi Eosinophils/100 WBC (Bld) 3.9 % Normal 0.9-7.0 [facility] Comment on above: Performed By: #### C BC ####[facility] Qzhrfsartn6637 [place] [address]Dr. Airam Tripathi Erythrocyte distribution width (RBC) [Ratio] 13.9 % Normal 11.0-15.0 [facility] Comment on above: Performed By: #### C BC ####[facility] Jsuthzjshe710[address] [place], [place] [address]Dr. Airam Tripathi Hematocrit (Bld) [Volume fraction] 32.7 % Critically low 36.0-48.0 [facility] Comment on above: Performed By: #### C BC ####[facility] Ozhoepjxlx146[address] [place], [place] [address]Dr. Airam Tripathi Hemoglobin (Bld) [Mass/Vol] 10.7 g/dL Critically low 12.0-16.0 [facility] Comment on above: Performed By: #### C BC ####[facility] Mqzcvnzyvt4901[address] [place], [place] [address]Dr. Airam Tripathi IG # 0.02 10e3/ul Normal 0.00-0.03 [facility] Comment on above: Performed By: #### C BC ####[facility] Dulfszaayo478[address] [place], [place] [address]Dr. Airam Tripathi IG % 0.4 % Normal 0.0-0.5 [facility] Comment on above: Performed By: #### C BC ####[facility] Urelicjczz9099[address] [place], [place] [address]Dr. Airam Tripathi LYMPH # 1.2 103/ul Normal 1.2-3.8 [facility] Comment on above: Performed By: #### C BC ####[facility] Upgknsppau317[address] [place], [place] [address]Dr. Airam Tripathi Lymphocytes/100 WBC (Bld) 25.0 % Normal 20.5-60.0 [facility] Comment on above: Performed By: #### C BC ####[facility] Shavgdvblp6[address] [place] [address]Dr. Selenaneil Tripathi MANUAL DIFF REQ NO Normal [facility] Comment on above: Performed By: #### C BC ####[facility] Scxvtowpud7348[address] [place], [place] [address]Dr. Airam Deuce MCH (RBC) [Entitic mass] 30.7 pg Normal 26.7-34.0 [facility] Comment on above: Performed By: #### C BC ####[facility] Tporbmplcf0925[address] [place], [place] [address]Dr. Airam Deuce MCHC (RBC) [Mass/Vol] 32.7 g/dL Normal 29.9-35.2 [facility] Comment on above: Performed By: #### C BC ####[facility] Ehwciglopb0458[address] [place], [place] [address]Dr. Airam Tripathi MCV (RBC) [Entitic vol] 93.7 fL Normal 81.0-99.0 [facility] Comment on above: Performed By: #### C BC ####[facility] Thxwrkvyiw09119[address] [place], [place] [address]Dr. Airam Tripathi MONO # 0.4 103/ul Normal 0.3-0.8 [facility] Comment on above: Performed By: #### C BC ####[facility] Vbhgidrrtj422[address] [place], [place] [address]Dr. Airam Tripathi Monocytes/100 WBC (Bld) 7.5 % Normal 1.7-12.0 [facility] Comment on above: Performed By: #### C BC ####[facility] Cequjdkstr3854[address] [place], [place] [address]Dr. Airam Tripathi NEUT # 3.1 103/ul Normal 1.4-6.5 [facility] Comment on above: Performed By: #### C BC ####[facility] Etfninffka8604[address] [place], [place] [address]Dr. Airam Tripathi Neutrophils/100 WBC (Bld) 62.8 % Normal 43.0-75.0 [facility] Comment on above: Performed By: #### C BC ####[facility] Kplrpgjxaz4470[address] [place], [place] [address]Dr. Airam Tripathi Platelet mean volume (Bld) [Entitic vol] 9.5 fL Normal 9.5-13.5 [facility] Comment on above: Performed By: #### C BC ####[facility] Ubutobipxc38[address] [place] [address]Dr. Airam Tripathi PLT 250 103/ul Normal 150-450 [facility] Comment on above: Performed By: #### C BC ####[facility] Tdcdixjklr9711 [place] [address]Dr. Airam Tripathi RBC 3.49 106/ul Critically low 4.20-5.40 [facility] Comment on above: Performed By: #### C BC ####[facility] Hbajwjfede7807 [place] [address]DrKianna Tripathi WBC 4.9 103/ul Normal 4.0-11.0 [facility] Comment on above: Performed By: #### C BC ####[facility] Xjvsynzgze8123 [place] [address]DrKianna Tripathi PROF 14(COMP METB)on 022 Albumin [Mass/Vol] 3.3 g/dL Critically low 3.4-5.0 [facility] Comment on above: Performed By: #### C MP ####[facility] Hzjamkamwu7989 [place] [address]DrKianna Tripathi Albumin/Globulin [Mass ratio] 1.0 {ratio} Normal [facility] Comment on above: Performed By: #### C MP ####[facility] Emtclrxqiw6583 [place] [address]DrKianna Tripathi ALP [Catalytic activity/Vol] 127 U/L Critically high 46-116 [facility] Comment on above: Performed By: #### C MP ####[facility] Qbvldhezxp447[address] [place], [place] [address]DrKianna Tripathi ALT [Catalytic activity/Vol] 22 U/L Normal 14-59 [facility] Comment on above: Performed By: #### C MP ####[facility] Hqlcvxpwda3377[address] [place], [place] [address]Dr. Airam Tripathi Anion gap [Moles/Vol] 11.9 mmol/L Normal Th e [facility] Comment on above: Performed By: #### C MP ####[facility] Zafiyuoxau0878 [place] [address]Dr. Airam Tripathi AST [Catalytic activity/Vol] 21 U/L Normal 15-37 [facility] Comment on above: Performed By: #### C MP ####[facility] Xlvcodhwkl3304[address] [place], [place] [address]Dr. Airam Deuce Bilirubin [Mass/Vol] 0.3 mg/dL Normal 0.2-1.0 [facility] Comment on above: Performed By: #### C MP ####[facility] Iuwxuyiauq8680[address] [place], [place] [address]Dr. Airam Deuce Calcium [Mass/Vol] 8.6 mg/dL Normal 8.5-10.1 [facility] Comment on above: Performed By: #### C MP ####[facility] Rsxurignyh84299[address] [place], [place] [address]Dr. Selenaneil Tripathi Chloride [Moles/Vol] 105 mmol/L Normal 98-107 [facility] Comment on above: Performed By: #### C MP ####[facility] Cxugsttjot9516[address] [place], [place] [address]Dr. Airam Deuce CO2 [Moles/Vol] 23.6 mmol/L Normal 21.0-32.0 [facility] Comment on above: Performed By: #### C MP ####[facility] Qnslousypp696[address] [place], [place] [address]Dr. Airam Deuce Creatinine [Mass/Vol] 1.29 mg/dL Critically high 0.55-1.02 [facility] Comment on above: Performed By: #### C MP ####[facility] Csbugkfxnq855[address] [place], [place] [address]Dr. Airam Tripathi EGFR-AF LUXEMBOURGER 51 mL/min/1.73m2 Critically low >=60 [facility] Comment on above: Performed By: #### C MP ####[facility] Lukbiqkpcs327[address] [place], [place] [address]Dr. Airam Tripathi EGFR-NON AF LUXEMBOURGER 42 mL/min/1.73m2 Critically low >=60 [facility] Comment on above: Performed By: #### C MP ####[facility] Zcvqlziboh9364 [place] [address]Dr. Airam Deuce Globulin (S) [Mass/Vol] 3.2 g/dL Normal [facility] Comment on above: Performed By: #### C MP ####[facility] Fhudivymxr2389 [place] [address]Dr. Airam Deuce Glucose [Mass/Vol] 94 mg/dL Normal 74-106 [facility] Comment on above: Performed By: #### C MP ####[facility] Bwkeycddas526[address] [place], [place] [address]Dr. Airam Tripathi Potassium [Moles/Vol] 3.5 mmol/L Normal 3.5-5.1 [facility] Comment on above: Performed By: #### C MP ####[facility] Mdvczbxnsp6184[address] [place], [place] [address]Dr. Airam Deuce Protein [Mass/Vol] 6.5 g/dL Normal 6.4-8.2 [facility] Comment on above: Performed By: #### C MP ####[facility] Tejaawopxe3877[address] [place], [place] [address]Dr. Airam Tripathi Sodium [Moles/Vol] 137 mmol/L Normal 136-145 [facility] Comment on above: Performed By: #### C MP ####[facility] Bkwschgnbb953[address] [place], [place] [address]Dr. Airam Deuce Urea nitrogen [Mass/Vol] 37.0 mg/dL Critically high 7.0-18.0 [facility] Comment on above: Performed By: #### C MP ####[facility] Gnpeovhutp0705[address] [place], [place] [address]Dr. Airam Tripathi Urea nitrogen/Creatinine [Mass ratio] 28.7 mg/mg Normal [facility] Comment on above: Performed By: #### C MP ####[facility] Dumusxccpm1908[address] [place], [place] [address]Dr. Airam Tripathi OSMOLALITYon 02-20-2022 Osmolality [Osmolality] 283 mosm/kg Normal 275-295 [facility] Comment on above: Performed By: #### O SMO ####[facility] Rpxoladihn315[address] [place], [place] [address]Dr. Airam Tripathi CBC AUTO DIFFon 02-17-2022 BASO # 0.0 103/ul Normal 0.0-0.1 [facility] Comment on above: Performed By: #### C BC ####[facility] Dsfejzqpzl588[address] [place], [place] [address]Dr. Ariam Tripathi Basophils/100 WBC (Bld) 0.3 % Normal 0.2-2.0 [facility] Comment on above: Performed By: #### C BC ####[facility] Gfyryqawij0325[address] [place], [place] [address]Dr. Airam Tripathi EO # 0.1 103/ul Normal 0.0-0.7 [facility] Comment on above: Performed By: #### C BC ####[facility] Jyhuavglqh080[address] [place], [place] [address]Dr. Airam Tripathi Eosinophils/100 WBC (Bld) 1.6 % Normal 0.9-7.0 [facility] Comment on above: Performed By: #### C BC ####[facility] Ihhlxyywwf8947[address] [place], [place] [address]Dr. Airam Tripathi Erythrocyte distribution width (RBC) [Ratio] 13.4 % Normal 11.0-15.0 [facility] Comment on above: Performed By: #### C BC ####[facility] Nyyiglzebd724[address] [place], [place] [address]Dr. Airam Tripathi Hematocrit (Bld) [Volume fraction] 31.4 % Critically low 36.0-48.0 [facility] Comment on above: Performed By: #### C BC ####[facility] Uirqvqhivb5616[address] [place], [place] [address]Dr. Airam Tripathi Hemoglobin (Bld) [Mass/Vol] 10.0 g/dL Critically low 12.0-16.0 [facility] Comment on above: Performed By: #### C BC ####[facility] Dwvlaxkoaj5638 [place] [address]Dr. Airam Tripathi IG # 0.03 10e3/ul Normal 0.00-0.03 [facility] Comment on above: Performed By: #### C BC ####[facility] Onoaqkxtyk4671 [place] [address]Dr. Airam Tripathi IG % 0.4 % Normal 0.0-0.5 [facility] Comment on above: Performed By: #### C BC ####[facility] Fdkutadayu9697 [place] [address]Dr. Airam Deuce LYMPH # 1.6 103/ul Normal 1.2-3.8 [facility] Comment on above: Performed By: #### C BC ####[facility] Teeiuuwfrs7117 [place] [address]Dr. Airam Tripathi Lymphocytes/100 WBC (Bld) 24.5 % Normal 20.5-60.0 [facility] Comment on above: Performed By: #### C BC ####[facility] Hrrwuyoehb8[address] [place] [address]Dr. Selenaneil Tripathi MANUAL DIFF REQ NO Normal [facility] Comment on above: Performed By: #### C BC ####[facility] Dxhcqxiojb5287 [place] [address]Dr. Airam Tripathi MCH (RBC) [Entitic mass] 30.2 pg Normal 26.7-34.0 [facility] Comment on above: Performed By: #### C BC ####[facility] Upgjsobvpb0624 [place] [address]Dr. Airam Tripathi MCHC (RBC) [Mass/Vol] 31.8 g/dL Normal 29.9-35.2 [facility] Comment on above: Performed By: #### C BC ####[facility] Euhngbqsag250[address] [place], [place] [address]Dr. Airam Deuce MCV (RBC) [Entitic vol] 94.9 fL Normal 81.0-99.0 [facility] Comment on above: Performed By: #### C BC ####[facility] Jgsxmwlqzy7[address] [place], [place] [address]Dr. Airam Tripathi MONO # 0.4 103/ul Normal 0.3-0.8 [facility] Comment on above: Performed By: #### C BC ####[facility] Anbbjcdaux2812 [place] [address]Dr. Airam Tripathi Monocytes/100 WBC (Bld) 5.8 % Normal 1.7-12.0 [facility] Comment on above: Performed By: #### C BC ####[facility] Sfcmxrrlxb2235 [place] [address]Dr. Airam Tripathi NEUT # 4.5 103/ul Normal 1.4-6.5 [facility] Comment on above: Performed By: #### C BC ####[facility] Crqemmdegc5348[address] [place], [place] [address]Dr. Airam Tripathi Neutrophils/100 WBC (Bld) 67.4 % Normal 43.0-75.0 [facility] Comment on above: Performed By: #### C BC ####[facility] Glsbwhbyob9922[address] [place], [place] [address]Dr. Airam Tripathi Platelet mean volume (Bld) [Entitic vol] 9.6 fL Normal 9.5-13.5 [facility] Comment on above: Performed By: #### C BC ####[facility] Jpvpszgmrp4520 [place] [address]Dr. Airam Tripathi PLT 251 103/ul Normal 150-450 [facility] Comment on above: Performed By: #### C BC ####[facility] Ypgvfonwko989[address] [place], [place] [address]Dr. Airam Tripathi RBC 3.31 106/ul Critically low 4.20-5.40 [facility] Comment on above: Performed By: #### C BC ####[facility] Piqhguyiqj833[address] [place], [place] [address]Dr. Airam Tripathi WBC 6.7 103/ul Normal 4.0-11.0 [facility] Comment on above: Performed By: #### C BC ####[facility] Wawsscciuw[address] [place] [address]Dr. Airam Tripathi PROF 14(COMP METB)on 022 Albumin [Mass/Vol] 3.5 g/dL Normal 3.4-5.0 [facility] Comment on above: Performed By: #### C MP ####[facility] Gdxpikcsjc4188[address] [place], [place] [address]Dr. Airam Tripathi Albumin/Globulin [Mass ratio] 1.2 {ratio} Normal [facility] Comment on above: Performed By: #### C MP ####[facility] Wldccxarxm9924[address] [place], [place] [address]Dr. Airam Tripathi ALP [Catalytic activity/Vol] 130 U/L Critically high 46-116 [facility] Comment on above: Performed By: #### C MP ####[facility] Vnsrrbvlhr9932[address] [place], [place] [address]Dr. Airam Tripathi ALT [Catalytic activity/Vol] 18 U/L Normal 14-59 [facility] Comment on above: Performed By: #### C MP ####[facility] Oayyffhjwa48299[address] [place], [place] [address]Dr. Airam Tripathi Anion gap [Moles/Vol] 14.0 mmol/L Normal [facility] Comment on above: Performed By: #### C MP ####[facility] Vowyzupemy4095[address] [place], [place] [address]Dr. Airam Tripathi AST [Catalytic activity/Vol] 20 U/L Normal 15-37 [facility] Comment on above: Performed By: #### C MP ####[facility] Dhzelvzdha074[address] [place], [place] [address]Dr. Airam Tripathi Bilirubin [Mass/Vol] 0.3 mg/dL Normal 0.2-1.0 [facility] Comment on above: Performed By: #### C MP ####[facility] Sjewuaycjs9234[address] [place], [place] [address]Dr. Airam Tripathi Calcium [Mass/Vol] 8.5 mg/dL Normal 8.5-10.1 [facility] Comment on above: Performed By: #### C MP ####[facility] Eazzztsfsi1399[address] [place], [place] [address]Dr. Airam Tripathi Chloride [Moles/Vol] 100 mmol/L Normal 98-107 [facility] Comment on above: Performed By: #### C MP ####[facility] Qzdjpsywzt3002 [place] [address]Dr. Airam Deuce CO2 [Moles/Vol] 22.7 mmol/L Normal 21.0-32.0 [facility] Comment on above: Performed By: #### C MP ####[facility] Yjiijndrbs836[address] [place], [place] [address]Dr. Airam Deuce Creatinine [Mass/Vol] 1.28 mg/dL Critically high 0.55-1.02 [facility] Comment on above: Performed By: #### C MP ####[facility] Irmppxodhq405[address] [place], [place] [address]Dr. Airam Deuce EGFR-AF LUXEMBOURGER 52 mL/min/1.73m2 Critically low >=60 [facility] Comment on above: Performed By: #### C MP ####[facility] Ykylfurrym1555[address] [place], [place] [address]Dr. Airam Deuce EGFR-NON AF LUXEMBOURGER 43 mL/min/1.73m2 Critically low >=60 [facility] Comment on above: Performed By: #### C MP ####[facility] Nnweekcmwb6244[address] [place], [place] [address]Dr. Selenaneil Tripathi Globulin (S) [Mass/Vol] 2.9 g/dL Normal [facility] Comment on above: Performed By: #### C MP ####[facility] Kzpnqookzo4108[address] [place], [place] [address]Dr. Selneaneil Tripathi Glucose [Mass/Vol] 93 mg/dL Normal 74-106 [facility] Comment on above: Performed By: #### C MP ####[facility] Akuuiumjxt737[address] [place], [place] [address]Dr. Airam Tripathi Potassium [Moles/Vol] 3.7 mmol/L Normal 3.5-5.1 [facility] Comment on above: Performed By: #### C MP ####[facility] Amwuolxdum645[address] [place], [place] [address]Dr. Airam Tripathi Protein [Mass/Vol] 6.4 g/dL Normal 6.4-8.2 [facility] Comment on above: Performed By: #### C MP ####[facility] Hdbmjvwlej248[address] [place], [place] [address]Dr. Airam Tripathi Sodium [Moles/Vol] 133 mmol/L Critically low 136-145 [facility] Comment on above: Performed By: #### C MP ####[facility] Cyjkmobwuq0755[address] [place], [place] [address]Dr. Airam Tripathi Urea nitrogen [Mass/Vol] 44.0 mg/dL Critically high 7.0-18.0 [facility] Comment on above: Performed By: #### C MP ####[facility] Hbxedojzet749[address] [place], [place] [address]Dr. Airam Tripathi Urea nitrogen/Creatinine [Mass ratio] 34.4 mg/mg Normal [facility] Comment on above: Performed By: #### C MP ####[facility] Hnplmbwodi5478[address] [place], [place] [address]Dr. Airam Tripathi OSMOLALITYon 02-10-2022 Osmolality [Osmolality] 288 mosm/kg Normal 275-295 [facility] Comment on above: Performed By: #### O SMO ####[facility] Pxqytrlbsl9565[address] [place], [place] [address]DrKianna Selenaneil Tripathi CBC AUTO DIFFon 02-08-2022 BASO # 0.0 103/ul Normal 0.0-0.1 [facility] Comment on above: Performed By: #### C BC ####[facility] Lhqpvjaufh[address] [place], [place] [address]Dr. Airam Tripathi Basophils/100 WBC (Bld) 0.3 % Normal 0.2-2.0 [facility] Comment on above: Performed By: #### C BC ####[facility] Ilgzjhftzx4413[address] [place], [place] [address]DrKianna Tripathi EO # 0.2 103/ul Normal 0.0-0.7 [facility] Comment on above: Performed By: #### C BC ####[facility] Hvkchthmcb6[address] [place], [place] [address]Dr. Airam Tripathi Eosinophils/100 WBC (Bld) 2.1 % Normal 0.9-7.0 [facility] Comment on above: Performed By: #### C BC ####[facility] Pboegoyfhr[address] [place] [address]Dr. Airam Tripathi Erythrocyte distribution width (RBC) [Ratio] 13.4 % Normal 11.0-15.0 [facility] Comment on above: Performed By: #### C BC ####[facility] Hvfovdycbz5[address] [place] [address]Dr. Airam Tripathi Hematocrit (Bld) [Volume fraction] 35.1 % Critically low 36.0-48.0 [facility] Comment on above: Performed By: #### C BC ####[facility] Bdxushejci3[address] [place], [place] [address]Dr. Airam Tripathi Hemoglobin (Bld) [Mass/Vol] 10.9 g/dL Critically low 12.0-16.0 [facility] Comment on above: Performed By: #### C BC ####[facility] Ebieoujlhd434[address] [place], [place] [address]Dr. Airam Tripathi IG # 0.03 10e3/ul Normal 0.00-0.03 [facility] Comment on above: Performed By: #### C BC ####[facility] Ylmbhloakv026[address] [place], [place] [address]Dr. Airam Tripathi IG % 0.3 % Normal 0.0-0.5 [facility] Comment on above: Performed By: #### C BC ####[facility] Mafznkrmuv3565[address] [place], [place] [address]Dr. Airam Tripathi LYMPH # 1.3 103/ul Normal 1.2-3.8 [facility] Comment on above: Performed By: #### C BC ####[facility] Ygocqtvcqj767[address] [place], [place] [address]Dr. Airam Tripathi Lymphocytes/100 WBC (Bld) 13.1 % Critically low 20.5-60.0 [facility] Comment on above: Performed By: #### C BC ####[facility] Jbbupansta[address] [place] [address]Dr. Airam Deuce MANUAL DIFF REQ NO Normal [facility] Comment on above: Performed By: #### C BC ####[facility] Scmcziamut[address] [place] [address]Dr. Airam Tripathi MCH (RBC) [Entitic mass] 30.4 pg Normal 26.7-34.0 [facility] Comment on above: Performed By: #### C BC ####[facility] Btlgzrnvrs97[address] [place] [address]Dr. Airam Deuce MCHC (RBC) [Mass/Vol] 31.1 g/dL Normal 29.9-35.2 [facility] Comment on above: Performed By: #### C BC ####[facility] Cjlfeafgnf534[address] [place], [place] [address]Dr. Airam Deuce MCV (RBC) [Entitic vol] 98.0 fL Normal 81.0-99.0 [facility] Comment on above: Performed By: #### C BC ####[facility] Hfbpnacsgt16[address] [place], [place] [address]Dr. Airam Deuce MONO # 0.5 103/ul Normal 0.3-0.8 [facility] Comment on above: Performed By: #### C BC ####[facility] Kzgdrscsqr5254[address] [place], [place] [address]Dr. Selenaneil Tripathi Monocytes/100 WBC (Bld) 4.7 % Normal 1.7-12.0 [facility] Comment on above: Performed By: #### C BC ####[facility] Nobtrlxcnp[address] [place] [address]Dr. Selenaneil Deuce NEUT # 7.7 103/ul Critically high 1.4-6.5 [facility] Comment on above: Performed By: #### C BC ####[facility] Nibhkxwqse040[address] [place], [place] [address]Dr. Airam Tripathi Neutrophils/100 WBC (Bld) 79.5 % Critically high 43.0-75.0 [facility] Comment on above: Performed By: #### C BC ####[facility] Xmqlrkugxh6974 [place] [address]Dr. Airam Tripathi Platelet mean volume (Bld) [Entitic vol] 9.6 fL Normal 9.5-13.5 [facility] Comment on above: Performed By: #### C BC ####[facility] Wfpkceailc76[address] [place] [address]Dr. Airam Deuce PLT 268 103/ul Normal 150-450 [facility] Comment on above: Performed By: #### C BC ####[facility] Zxweeatfiz0905 [place] [address]Dr. Airam Deuce RBC 3.58 106/ul Critically low 4.20-5.40 [facility] Comment on above: Performed By: #### C BC ####[facility] Qzbwwsolgz0180[address] [place], [place] [address]Dr. Selenaneil Deuce WBC 9.7 103/ul Normal 4.0-11.0 [facility] Comment on above: Performed By: #### C BC ####[facility] Cscqewefbv5[address] [place] [address]Dr. Airam Tripathi PROF 14(COMP METB)on 022 Albumin [Mass/Vol] 3.6 g/dL Normal 3.4-5.0 [facility] Comment on above: Performed By: #### C MP ####[facility] Yykrsfytxa6765[address] [place], [place] [address]Dr. Airam Tripathi Albumin/Globulin [Mass ratio] 1.1 {ratio} Normal [facility] Comment on above: Performed By: #### C MP ####[facility] Tpeirtbhel7[address] [place] [address]Dr. Airam Tripathi ALP [Catalytic activity/Vol] 131 U/L Critically high 46-116 [facility] Comment on above: Performed By: #### C MP ####[facility] Vbnfojzxch736[address] [place], [place] [address]Dr. Airam Tripathi ALT [Catalytic activity/Vol] 22 U/L Normal 14-59 [facility] Comment on above: Performed By: #### C MP ####[facility] Canpsesnmt899[address] [place], [place] [address]Dr. Airam Deuce Anion gap [Moles/Vol] 13.3 mmol/L Normal [facility] Comment on above: Performed By: #### C MP ####[facility] Qqftcvznrd4230 [place] [address]Dr. Airam Tripathi AST [Catalytic activity/Vol] 23 U/L Normal 15-37 [facility] Comment on above: Performed By: #### C MP ####[facility] Nmkxepokbi429[address] [place], [place] [address]Dr. Airam Deuce Bilirubin [Mass/Vol] 0.3 mg/dL Normal 0.2-1.0 [facility] Comment on above: Performed By: #### C MP ####[facility] Xduwjfzqnd7190[address] [place], [place] [address]Dr. Airam Tripathi Calcium [Mass/Vol] 8.7 mg/dL Normal 8.5-10.1 [facility] Comment on above: Performed By: #### C MP ####[facility] Zfdluhpwqb286[address] [place], [place] [address]Dr. Airam Tripathi Chloride [Moles/Vol] 104 mmol/L Normal 98-107 [facility] Comment on above: Performed By: #### C MP ####[facility] Qwalnpvvnr170395 [address] [place], [place] [address]Dr. Airam Tripathi CO2 [Moles/Vol] 22.0 mmol/L Normal 21.0-32.0 [facility] Comment on above: Performed By: #### C MP ####[facility] Rekkgiuamt688[address] [place], [place] [address]Dr. Airam Tripathi Creatinine [Mass/Vol] 1.20 mg/dL Critically high 0.55-1.02 [facility] Comment on above: Performed By: #### C MP ####[facility] Hbzxxhgwxe929[address] [place], [place] [address]Dr. Selenaneil Deuce EGFR-AF LUXEMBOURGER 56 mL/min/1.73m2 Critically low >=60 [facility] Comment on above: Performed By: #### C MP ####[facility] Wokwkhvrep246[address] [place], [place] [address]Dr. Airam Tripathi EGFR-NON AF LUXEMBOURGER 46 mL/min/1.73m2 Critically low >=60 [facility] Comment on above: Performed By: #### C MP ####[facility] Dqmzpnasuf5[address] [place] [address]Dr. Airam Tripathi Globulin (S) [Mass/Vol] 3.2 g/dL Normal [facility] Comment on above: Performed By: #### C MP ####[facility] Hkedxywsqp6977 [place] [address]Dr. Airam Tripathi Glucose [Mass/Vol] 98 mg/dL Normal 74-106 [facility] Comment on above: Performed By: #### C MP ####[facility] Vydosvhued058[address] [place], [place] [address]Dr. Airam Tripathi Potassium [Moles/Vol] 4.3 mmol/L Normal 3.5-5.1 [facility] Comment on above: Performed By: #### C MP ####[facility] Nkmokovyle7705[address] [place], [place] [address]Dr. Airam Tripathi Protein [Mass/Vol] 6.8 g/dL Normal 6.4-8.2 [facility] Comment on above: Performed By: #### C MP ####[facility] Dpnnpeqktb9532[address] [place], [place] [address]Dr. Airam Tripathi Sodium [Moles/Vol] 135 mmol/L Critically low 136-145 [facility] Comment on above: Performed By: #### C MP ####[facility] Rlhrixwqfm334[address] [place], [place] [address]Dr. Airam Tripathi Urea nitrogen [Mass/Vol] 33.0 mg/dL Critically high 7.0-18.0 [facility] Comment on above: Performed By: #### C MP ####[facility] Eqdhrnljki6022[address] [place], [place] [address]Dr. Airam Tripathi Urea nitrogen/Creatinine [Mass ratio] 27.5 mg/mg Normal [facility] Comment on above: Performed By: #### C MP ####[facility] Olhrmclscb0138[address] [place], [place] [address]Dr. Airam Tripathi OSMOLALITYon 08-15-2022 Osmolality [Osmolality] 299 mosm/kg Critically high 275-295 [facility] Comment on above: Performed By: #### O SMO ####[facility] Emziqxlypz8155[address] [place], [place] [address]Dr. Airam Tripathi CBC AUTO DIFFon 02-03-2022 BASO # 0.0 103/ul Normal 0.0-0.1 [facility] Comment on above: Performed By: #### C BC ####[facility] Hmeylkknnb985[address] [place], [place] [address]Dr. Airam Tripathi Basophils/100 WBC (Bld) 0.4 % Normal 0.2-2.0 [facility] Comment on above: Performed By: #### C BC ####[facility] Eemhtnrppv7717[address] [place], [place] [address]Dr. Airam Tripathi EO # 0.3 103/ul Normal 0.0-0.7 [facility] Comment on above: Performed By: #### C BC ####[facility] Tqjskoadlx2490[address] [place], [place] [address]Dr. Airam Tripathi Eosinophils/100 WBC (Bld) 3.6 % Normal 0.9-7.0 [facility] Comment on above: Performed By: #### C BC ####[facility] Wvsosmnvqd5570[address] [place], [place] [address]Dr. Airam Tripathi Erythrocyte distribution width (RBC) [Ratio] 13.2 % Normal 11.0-15.0 [facility] Comment on above: Performed By: #### C BC ####[facility] Lzyeizhkqm6214[address] [place], [place] [address]Dr. Airam Tripathi Hematocrit (Bld) [Volume fraction] 32.0 % Critically low 36.0-48.0 [facility] Comment on above: Performed By: #### C BC ####[facility] Edrpsztoln734[address] [place], [place] [address]Dr. Airam Tripathi Hemoglobin (Bld) [Mass/Vol] 9.8 g/dL Critically low 12.0-16.0 [facility] Comment on above: Performed By: #### C BC ####[facility] Kehtrcrmff[address] [place] [id number]. Airam Tripathi IG # 0.03 10e3/ul Normal 0.00-0.03 [facility] Comment on above: Performed By: #### C BC ####[facility] Sbjviateqi8917 [place] [id number]. Selenaneil Tripathi IG % 0.4 % Normal 0.0-0.5 [facility] Comment on above: Performed By: #### C BC ####[facility] Finbkdewif7[address] [place] [address]Dr. Airam Deuce LYMPH # 1.7 103/ul Normal 1.2-3.8 [facility] Comment on above: Performed By: #### C BC ####[facility] Xnbvfnilea16[address] [place] [address]Dr. Airam Tripathi Lymphocytes/100 WBC (Bld) 24.8 % Normal 20.5-60.0 [facility] Comment on above: Performed By: #### C BC ####[facility] Jeqwvuklco4284[address] [place], [place] [address]Dr. Selenaneil Tripathi MANUAL DIFF REQ NO Normal [facility] Comment on above: Performed By: #### C BC ####[facility] Mbexxjlcpr8237 [place] [address]Dr. Selenaneil Tripathi MCH (RBC) [Entitic mass] 29.6 pg Normal 26.7-34.0 [facility] Comment on above: Performed By: #### C BC ####[facility] Llqmsgepyi0699 [place] [address]Dr. Airam Deuce MCHC (RBC) [Mass/Vol] 30.6 g/dL Normal 29.9-35.2 [facility] Comment on above: Performed By: #### C BC ####[facility] Bxvqgxbcge9[address] [place] [address]Dr. Selenaneil Tripathi MCV (RBC) [Entitic vol] 96.7 fL Normal 81.0-99.0 [facility] Comment on above: Performed By: #### C BC ####[facility] Hczfhjkpkc0948 [place] [id number]. Airam Tripathi MONO # 0.4 103/ul Normal 0.3-0.8 [facility] Comment on above: Performed By: #### C BC ####[facility] Goyamevyyf9103 [place] [id number]. Airam Tripathi Monocytes/100 WBC (Bld) 6.3 % Normal 1.7-12.0 [facility] Comment on above: Performed By: #### C BC ####[facility] Uoajaksalf4824 [place] [phone]. Airam Tripathi NEUT # 4.5 103/ul Normal 1.4-6.5 [facility] Comment on above: Performed By: #### C BC ####[facility] Wjthgzhyid7955 [place] [phone]. Airam Tripathi Neutrophils/100 WBC (Bld) 64.5 % Normal 43.0-75.0 [facility] Comment on above: Performed By: #### C BC ####[facility] Exvfldmxwa7465 [place] [phone]. Airam Tripathi Platelet mean volume (Bld) [Entitic vol] 9.3 fL Critically low 9.5-13.5 [facility] Comment on above: Performed By: #### C BC ####[facility] Tjedmohrjf27[address] [place] [id number]. Airam Tripathi PLT 243 103/ul Normal 150-450 [facility] Comment on above: Performed By: #### C BC ####[facility] Ajpzfcyuix4435 [place] [id number]. Airam Tripathi RBC 3.31 106/ul Critically low 4.20-5.40 [facility] Comment on above: Performed By: #### C BC ####[facility] Axvfmkaztr6009 [place] [id number]. Airam Tripathi WBC 7.0 103/ul Normal 4.0-11.0 [facility] Comment on above: Performed By: #### C BC ####[facility] Wnbuwrixkn20[address] [place], [place] [address]Dr. Airam Tripathi PROF 14(COMP METB)on 022 Albumin [Mass/Vol] 3.3 g/dL Critically low 3.4-5.0 [facility] Comment on above: Performed By: #### C MP ####[facility] Ntqscasavk36[address] [place] [address]Dr. Airam Tripathi Albumin/Globulin [Mass ratio] 1.1 {ratio} Normal [facility] Comment on above: Performed By: #### C MP ####[facility] Shgetejkbv8534 [place] [address]Dr. Airam Tripathi ALP [Catalytic activity/Vol] 126 U/L Critically high 46-116 [facility] Comment on above: Performed By: #### C MP ####[facility] Xosuyqrjep6157[address] [place], [place] [address]Dr. Airam Tripathi ALT [Catalytic activity/Vol] 21 U/L Normal 14-59 [facility] Comment on above: Performed By: #### C MP ####[facility] Aqtfpmuarg327[address] [place], [place] [address]Dr. Airam Tripathi Anion gap [Moles/Vol] 11.8 mmol/L Normal [facility] Comment on above: Performed By: #### C MP ####[facility] Fiuaeponal738[address] [place], [place] [address]Dr. Airam Tripathi AST [Catalytic activity/Vol] 22 U/L Normal 15-37 [facility] Comment on above: Performed By: #### C MP ####[facility] Ouodihisch099[address] [place], [place] [address]Dr. Airam Tripathi Bilirubin [Mass/Vol] 0.3 mg/dL Normal 0.2-1.0 [facility] Comment on above: Performed By: #### C MP ####[facility] Taefcycxjg522[address] [place], [place] [address]Dr. Airam Tripathi Calcium [Mass/Vol] 8.7 mg/dL Normal 8.5-10.1 [facility] Comment on above: Performed By: #### C MP ####[facility] Sdncaguizp285[address] [place], [place] [address]Dr. Airam Tripathi Chloride [Moles/Vol] 102 mmol/L Normal 98-107 [facility] Comment on above: Performed By: #### C MP ####[facility] Jmgxoaompr6451 [place] [address]Dr. Airam Tripathi CO2 [Moles/Vol] 25.5 mmol/L Normal 21.0-32.0 [facility] Comment on above: Performed By: #### C MP ####[facility] Zwbzzejdsf0861 [place] [address]Dr. Airam Tripathi Creatinine [Mass/Vol] 1.43 mg/dL Critically high 0.55-1.02 [facility] Comment on above: Performed By: #### C MP ####[facility] Fqewaeaixc8121 [place] [address]Dr. Airam Tripathi EGFR-AF LUXEMBOURGER 46 mL/min/1.73m2 Critically low >=60 [facility] Comment on above: Performed By: #### C MP ####[facility] Nedfrhlzqp6750 [place] [address]Dr. Airam Tripathi EGFR-NON AF LUXEMBOURGER 38 mL/min/1.73m2 Critically low >=60 [facility] Comment on above: Performed By: #### C MP ####[facility] Xcbauezosh7126 [place] [address]Dr. Airam Tripathi Globulin (S) [Mass/Vol] 2.9 g/dL Normal [facility] Comment on above: Performed By: #### C MP ####[facility] Mlgsjwhmqr1612 [place] [address]Dr. Airam Deuce Glucose [Mass/Vol] 83 mg/dL Normal 74-106 [facility] Comment on above: Performed By: #### C MP ####[facility] Pqtbbzqdjc2790 [place] [address]Dr. Airam Tripathi Potassium [Moles/Vol] 4.3 mmol/L Normal 3.5-5.1 [facility] Comment on above: Performed By: #### C MP ####[facility] Kudzbtoiyn8034 [place] [address]Dr. Airam Tripathi Protein [Mass/Vol] 6.2 g/dL Critically low 6.4-8.2 [facility] Comment on above: Performed By: #### C MP ####[facility] Gajikbsolq3337[address] [place], [place] [address]Dr. Airam Tripathi Sodium [Moles/Vol] 135 mmol/L Critically low 136-145 [facility] Comment on above: Performed By: #### C MP ####[facility] Spsvqafauf44[address] [place], [place] [address]Dr. Airam Deuce Urea nitrogen [Mass/Vol] 39.0 mg/dL Critically high 7.0-18.0 [facility] Comment on above: Performed By: #### C MP ####[facility] Osftoaneim0850[address] [place], [place] [address]Dr. Airam Deuce Urea nitrogen/Creatinine [Mass ratio] 27.3 mg/mg Normal [facility] Comment on above: Performed By: #### C MP ####[facility] Ebdkrmymlc3284[address] [place], [place] [address]Dr. Airam Tripathi OSMOLALITYon 02-02-2022 Osmolality [Osmolality] 292 mosm/kg Normal 275-295 [facility] Comment on above: Performed By: #### O SMO ####[facility] Qlhnduqiwn3490[address] [place], [place] [address]Dr. Airam Tripathi CBC AUTO DIFFon 01-27-2022 BASO # 0.0 103/ul Normal 0.0-0.1 [facility] Comment on above: Performed By: #### C BC ####[facility] Ogtczgvnuh8560[address] [place], [place] [address]Dr. Airam Deuce Basophils/100 WBC (Bld) 0.4 % Normal 0.2-2.0 [facility] Comment on above: Performed By: #### C BC ####[facility] Xyzjrfiqyw504[address] [place], [place] [address]Dr. Selenaneil Tripathi EO # 0.2 103/ul Normal 0.0-0.7 [facility] Comment on above: Performed By: #### C BC ####[facility] Yrxvtzqtio5456 [place] [id number]. Airam Tripathi Eosinophils/100 WBC (Bld) 3.4 % Normal 0.9-7.0 [facility] Comment on above: Performed By: #### C BC ####[facility] Upnrottnhc85[address] [place] [address]Dr. Airam Tripathi Erythrocyte distribution width (RBC) [Ratio] 13.1 % Normal 11.0-15.0 [facility] Comment on above: Performed By: #### C BC ####[facility] Lpgktkhbva7927[address] [place], [place] [address]Dr. Airam Tripathi Hematocrit (Bld) [Volume fraction] 31.6 % Critically low 36.0-48.0 [facility] Comment on above: Performed By: #### C BC ####[facility] Hbhfftqull7848[address] [place], [place] [address]Dr. Airam Tripathi Hemoglobin (Bld) [Mass/Vol] 9.9 g/dL Critically low 12.0-16.0 [facility] Comment on above: Performed By: #### C BC ####[facility] Ajdveriggm207[address] [place], [place] [address]Dr. Airam Tripathi IG # 0.02 10e3/ul Normal 0.00-0.03 [facility] Comment on above: Performed By: #### C BC ####[facility] Lssmuzvwdx2042 [place] [address]Dr. Airam Tripathi IG % 0.4 % Normal 0.0-0.5 [facility] Comment on above: Performed By: #### C BC ####[facility] Dcxvbdylgi4508[address] [place], [place] [address]Dr. Airam Tripathi LYMPH # 1.0 103/ul Critically low 1.2-3.8 [facility] Comment on above: Performed By: #### C BC ####[facility] Jupoemsrbl395[address] [place], [place] [address]Dr. Airam Tripathi Lymphocytes/100 WBC (Bld) 17.4 % Critically low 20.5-60.0 [facility] Comment on above: Performed By: #### C BC ####[facility] Ovsyfcfrkl6924 [place] [id number]. Airam Tripathi MANUAL DIFF REQ NO Normal [facility] Comment on above: Performed By: #### C BC ####[facility] Tlpvvsxfyb6056 [place] [phone]. Airam Tripathi MCH (RBC) [Entitic mass] 30.1 pg Normal 26.7-34.0 [facility] Comment on above: Performed By: #### C BC ####[facility] Pcqozwtqsa38[address] [place] [address]Dr. Airam Tripathi MCHC (RBC) [Mass/Vol] 31.3 g/dL Normal 29.9-35.2 [facility] Comment on above: Performed By: #### C BC ####[facility] Fdtnndigvf274[address] [place], [place] [address]Dr. Airam Tripathi MCV (RBC) [Entitic vol] 96.0 fL Normal 81.0-99.0 [facility] Comment on above: Performed By: #### C BC ####[facility] Aptcdlzenq9826[address] [place], [place] [address]Dr. Airam Tripathi MONO # 0.5 103/ul Normal 0.3-0.8 [facility] Comment on above: Performed By: #### C BC ####[facility] Ughkafrxak5[address] [place], [place] [address]Dr. Airam Deuce Monocytes/100 WBC (Bld) 8.6 % Normal 1.7-12.0 [facility] Comment on above: Performed By: #### C BC ####[facility] Cqbvaaetar5827[address] [place], [place] [address]Dr. Airam Tripathi NEUT # 3.9 103/ul Normal 1.4-6.5 [facility] Comment on above: Performed By: #### C BC ####[facility] Dcbxtcgdlw0734[address] [place], [place] [address]Dr. Airam Deuce Neutrophils/100 WBC (Bld) 69.8 % Normal 43.0-75.0 [facility] Comment on above: Performed By: #### C BC ####[facility] Ldfppxskfr1142 [place] [phone]. Airam Deuce Platelet mean volume (Bld) [Entitic vol] 9.6 fL Normal 9.5-13.5 [facility] Comment on above: Performed By: #### C BC ####[facility] Dhbuynmbhx7807 [place] [phone]. Selenaneil Deuce PLT 228 103/ul Normal 150-450 [facility] Comment on above: Performed By: #### C BC ####[facility] Kyaltwaefo8686 [place] [phone]. Airam Tripathi RBC 3.29 106/ul Critically low 4.20-5.40 [facility] Comment on above: Performed By: #### C BC ####[facility] Fycjbtyswi1808 [place] [phone]. Airam Tripathi WBC 5.6 103/ul Normal 4.0-11.0 [facility] Comment on above: Performed By: #### C BC ####[facility] Jcmsljwyhc5225 [place] [address]Dr. Airam Tripathi PROF 14(COMP METB)on 022 Albumin [Mass/Vol] 3.1 g/dL Critically low 3.4-5.0 [facility] Comment on above: Performed By: #### C MP ####[facility] Dzhrmbxbwp8298 [place] [id number]. Airam Tripathi Albumin/Globulin [Mass ratio] 1.0 {ratio} Normal [facility] Comment on above: Performed By: #### C MP ####[facility] Nkzfkaigaj[address] [place] [id number]. Airam Tripathi ALP [Catalytic activity/Vol] 131 U/L Critically high 46-116 [facility] Comment on above: Performed By: #### C MP ####[facility] Gdxlybxnsf8855 [place] [id number]. Airam Tripathi ALT [Catalytic activity/Vol] 19 U/L Normal 14-59 [facility] Comment on above: Performed By: #### C MP ####[facility] Ntxleyjvwm3102 [place] [id number]. Airam Tripathi Anion gap [Moles/Vol] 12.9 mmol/L Normal [facility] Comment on above: Performed By: #### C MP ####[facility] Qwxxonjamp5439 [place] [id number]. Airam Tripathi AST [Catalytic activity/Vol] 21 U/L Normal 15-37 [facility] Comment on above: Performed By: #### C MP ####[facility] Yodcqldkqm55[address] [place] [phone]. Airam Tripathi Bilirubin [Mass/Vol] 0.2 mg/dL Normal 0.2-1.0 [facility] Comment on above: Performed By: #### C MP ####[facility] Ieyejdsocg23[address] [place] [address]Dr. Airam Tripathi Calcium [Mass/Vol] 8.4 mg/dL Critically low 8.5-10.1 [facility] Comment on above: Performed By: #### C MP ####[facility] Opoxfmqwky[address] [place], [place] [address]Dr. Airam Tripathi Chloride [Moles/Vol] 103 mmol/L Normal 98-107 [facility] Comment on above: Performed By: #### C MP ####[facility] Udchenzxzj76[address] [place] [address]Dr. Airam Tripathi CO2 [Moles/Vol] 23.7 mmol/L Normal 21.0-32.0 [facility] Comment on above: Performed By: #### C MP ####[facility] Nhjcrjfcuy6[address] [place] [address]Dr. Airam Tripathi Creatinine [Mass/Vol] 1.37 mg/dL Critically high 0.55-1.02 [facility] Comment on above: Performed By: #### C MP ####[facility] Itmimsxknf67[address] [place] [address]Dr. Airam Tripathi EGFR-AF LUXEMBOURGER 48 mL/min/1.73m2 Critically low >=60 [facility] Comment on above: Performed By: #### C MP ####[facility] Bfykiyqkqt7[address] [place] [id number]. Airam Tripathi EGFR-NON AF LUXEMBOURGER 39 mL/min/1.73m2 Critically low >=60 [facility] Comment on above: Performed By: #### C MP ####[facility] Vvrmumlexw4323 [place] [phone]. Airam Tripathi Globulin (S) [Mass/Vol] 3.1 g/dL Normal [facility] Comment on above: Performed By: #### C MP ####[facility] Uwoaajzvqw13[address] [place] [phone]. Airam Tripathi Glucose [Mass/Vol] 88 mg/dL Normal 74-106 [facility] Comment on above: Performed By: #### C MP ####[facility] Uxyojpmafs9384 [place] [address]Dr. Airam Tripathi Potassium [Moles/Vol] 4.6 mmol/L Normal 3.5-5.1 [facility] Comment on above: Performed By: #### C MP ####[facility] Vwdfgwgwxt4709 [place] [phone]. Airam Tripathi Protein [Mass/Vol] 6.2 g/dL Critically low 6.4-8.2 [facility] Comment on above: Performed By: #### C MP ####[facility] Puahodvgxp6832 [place] [address]Dr. Airam Tripathi Sodium [Moles/Vol] 135 mmol/L Critically low 136-145 [facility] Comment on above: Performed By: #### C MP ####[facility] Qazlyhyuit5871 [place] [address]Dr. Airam Tripathi Urea nitrogen [Mass/Vol] 34.0 mg/dL Critically high 7.0-18.0 [facility] Comment on above: Performed By: #### C MP ####[facility] Gxespfrnjq9353 [place] [phone]. Airam Tripathi Urea nitrogen/Creatinine [Mass ratio] 24.8 mg/mg Normal [facility] Comment on above: Performed By: #### C MP ####[facility] Fvyvzhuuor[address] [place] [address]Dr. Airam Tripathi OSMOLALITYon 01-21-2022 Osmolality [Osmolality] 276 mosm/kg Normal 275-295 [facility] Comment on above: Performed By: #### O SMO ####[facility] Sjssufbqqj5[address] [place] [address]Dr. Airam Tripathi MRI CSPINE WO CONon 01-21-20 MRI CSPINE WO CON Normal [facility] CBC AUTO DIFFon 01-19-2022 BASO # 0.0 103/ul Normal 0.0-0.1 [facility] Comment on above: Performed By: #### C BC ####[facility] Mnbobkoooh6240 [place] [address]Dr. Airam Tripathi Basophils/100 WBC (Bld) 0.2 % Normal 0.2-2.0 [facility] Comment on above: Performed By: #### C BC ####[facility] Qucqoonijc84[address] [place], [place] [address]Dr. Airam Tripathi EO # 0.2 103/ul Normal 0.0-0.7 [facility] Comment on above: Performed By: #### C BC ####[facility] Qdbtujbyvd128[address] [place], [place] [address]Dr. Airam Tripathi Eosinophils/100 WBC (Bld) 2.1 % Normal 0.9-7.0 [facility] Comment on above: Performed By: #### C BC ####[facility] Cqcerwwesz07[address] [place], [place] [address]Dr. Airam Tripathi Erythrocyte distribution width (RBC) [Ratio] 12.7 % Normal 11.0-15.0 [facility] Comment on above: Performed By: #### C BC ####[facility] Snarniplce68[address] [place], [place] [address]Dr. Airam Tripathi Hematocrit (Bld) [Volume fraction] 32.2 % Critically low 36.0-48.0 [facility] Comment on above: Performed By: #### C BC ####[facility] Hanhrcgvxo655[address] [place], [place] [address]Dr. Airam Tripathi Hemoglobin (Bld) [Mass/Vol] 10.4 g/dL Critically low 12.0-16.0 [facility] Comment on above: Performed By: #### C BC ####[facility] Bsssqxcvsi3[address] [place] [address]DrKianna Tripathi IG # 0.03 10e3/ul Normal 0.00-0.03 [facility] Comment on above: Performed By: #### C BC ####[facility] Oimfdgodgf3144 [place] [address]DrKianna Tripathi IG % 0.3 % Normal 0.0-0.5 [facility] Comment on above: Performed By: #### C BC ####[facility] Dancuazlna8[address] [place], [place] [address]DrKianna Tripathi LYMPH # 1.4 103/ul Normal 1.2-3.8 [facility] Comment on above: Performed By: #### C BC ####[facility] Rwkxtdfwvl0930[address] [place], [place] [address]DrKianna Tripathi Lymphocytes/100 WBC (Bld) 16.0 % Critically low 20.5-60.0 [facility] Comment on above: Performed By: #### C BC ####[facility] Mdumdvbszy[address] [place], [place] [address]DrKianna Tripathi MANUAL DIFF REQ NO Normal [facility] Comment on above: Performed By: #### C BC ####[facility] Mfderpbjtp1527[address] [place], [place] [address]DrKianna Tripathi MCH (RBC) [Entitic mass] 30.0 pg Normal 26.7-34.0 [facility] Comment on above: Performed By: #### C BC ####[facility] Jkbvafkwok[address] [place], [place] [address]DrKianna Tripathi MCHC (RBC) [Mass/Vol] 32.3 g/dL Normal 29.9-35.2 [facility] Comment on above: Performed By: #### C BC ####[facility] Rsszndiwzz[address] [place], [place] [address]DrKianna Tripathi MCV (RBC) [Entitic vol] 92.8 fL Normal 81.0-99.0 [facility] Comment on above: Performed By: #### C BC ####[facility] Gqsdiqzmvt6758 [place] [address]DrKianna Airam Deuce MONO # 0.4 103/ul Normal 0.3-0.8 [facility] Comment on above: Performed By: #### C BC ####[facility] Flndfsmooh6730 [place] [address]DrKianna Tripathi Monocytes/100 WBC (Bld) 4.9 % Normal 1.7-12.0 [facility] Comment on above: Performed By: #### C BC ####[facility] Efqdzlwcqz16[address] [place], [place] [address]Dr. Selenaneil Deuce NEUT # 6.6 103/ul Critically high 1.4-6.5 [facility] Comment on above: Performed By: #### C BC ####[facility] Fwiaecdgse423[address] [place], [place] [address]Dr. Airam Tripathi Neutrophils/100 WBC (Bld) 76.5 % Critically high 43.0-75.0 [facility] Comment on above: Performed By: #### C BC ####[facility] Crjgbhjtjw[address] [place], [place] [address]DrKianna Selenaneil Tripathi Platelet mean volume (Bld) [Entitic vol] 9.8 fL Normal 9.5-13.5 [facility] Comment on above: Performed By: #### C BC ####[facility] Jpckgayduy547[address] [place], [place] [address]Dr. Airam Tripathi PLT 262 103/ul Normal 150-450 [facility] Comment on above: Performed By: #### C BC ####[facility] Yalwtntfre4860[address] [place], [place] [address]DrKianna Tripathi RBC 3.47 106/ul Critically low 4.20-5.40 [facility] Comment on above: Performed By: #### C BC ####[facility] Owjxizcuzo6309 [place] [phone] Tripathi WBC 8.7 103/ul Normal 4.0-11.0 [facility] Comment on above: Performed By: #### C BC ####[facility] Ahwlpvudan9915 [place] [address]DrKianna Tripathi PROF 14(COMP METB)on 022 Albumin [Mass/Vol] 3.3 g/dL Critically low 3.4-5.0 [facility] Comment on above: Performed By: #### C MP ####[facility] Fveumsmtwd4422 [place] [address]DrKianna Tripathi Albumin/Globulin [Mass ratio] 1.1 {ratio} Normal [facility] Comment on above: Performed By: #### C MP ####[facility] Lhdmbjjyot[address] [place], [place] [address]DrKianna Tripathi ALP [Catalytic activity/Vol] 114 U/L Normal 46-116 [facility] Comment on above: Performed By: #### C MP ####[facility] Rujmwgbfoh60[address] [place], [place] [address]Dr. Airam Tripathi ALT [Catalytic activity/Vol] 20 U/L Normal 14-59 [facility] Comment on above: Performed By: #### C MP ####[facility] Lvqwcuvamc[address] [place], [place] [address]DrKianna Tripathi Anion gap [Moles/Vol] 14.7 mmol/L Normal [facility] Comment on above: Performed By: #### C MP ####[facility] Xrilrcxkmf45[address] [place], [place] [address]DrKianna Tripathi AST [Catalytic activity/Vol] 22 U/L Normal 15-37 [facility] Comment on above: Performed By: #### C MP ####[facility] Evfldheaom8127 [place] [address]DrKianna Tripathi Bilirubin [Mass/Vol] 0.3 mg/dL Normal 0.2-1.0 [facility] Comment on above: Performed By: #### C MP ####[facility] Qaeejqpqoq9727 [place] [address]DrKianna Tripathi Calcium [Mass/Vol] 8.8 mg/dL Normal 8.5-10.1 [facility] Comment on above: Performed By: #### C MP ####[facility] Qwonelmdge4813 [place] [address]Dr. Airam Tripathi Chloride [Moles/Vol] 97 mmol/L Critically low 98-107 [facility] Comment on above: Performed By: #### C MP ####[facility] Grdgiaxeua5035 [place] [address]Dr. Airam Tripathi CO2 [Moles/Vol] 24.5 mmol/L Normal 21.0-32.0 [facility] Comment on above: Performed By: #### C MP ####[facility] Llwnonhhmz9469 [place] [address]Dr. Airam Tripathi Creatinine [Mass/Vol] 1.28 mg/dL Critically high 0.55-1.02 [facility] Comment on above: Performed By: #### C MP ####[facility] Qlrptblmiw[address] [place], [place] [address]Dr. Airam Tripathi EGFR-AF LUXEMBOURGER 52 mL/min/1.73m2 Critically low >=60 [facility] Comment on above: Performed By: #### C MP ####[facility] Ggyxtczdgp964[address] [place], [place] [address]Dr. Airam Tripathi EGFR-NON AF LUXEMBOURGER 43 mL/min/1.73m2 Critically low >=60 [facility] Comment on above: Performed By: #### C MP ####[facility] Nspcaqjtgt0343 [place] [address]Dr. Airam Tripathi Globulin (S) [Mass/Vol] 3.1 g/dL Normal [facility] Comment on above: Performed By: #### C MP ####[facility] Xpdunbchxj3701 [place] [address]Dr. Airam Tripathi Glucose [Mass/Vol] 87 mg/dL Normal 74-106 [facility] Comment on above: Performed By: #### C MP ####[facility] Xqzheqmmic5420 [place] [address]Dr. Airam Deuce Potassium [Moles/Vol] 4.2 mmol/L Normal 3.5-5.1 [facility] Comment on above: Performed By: #### C MP ####[facility] Kvazikoesr11[address] [place], [place] [address]Dr. Airam Tripathi Protein [Mass/Vol] 6.4 g/dL Normal 6.4-8.2 [facility] Comment on above: Performed By: #### C MP ####[facility] Ethftmatla5099[address] [place], [place] [address]Dr. Airam Tripathi Sodium [Moles/Vol] 132 mmol/L Critically low 136-145 Th [facility] Comment on above: Performed By: #### C MP ####[facility] Zhrncypkic9916[address] [place], [place] [address]Dr. Airam Tripathi Urea nitrogen [Mass/Vol] 36.0 mg/dL Critically high 7.0-18.0 [facility] Comment on above: Performed By: #### C MP ####[facility] Uweetrhanu017[address] [place], [place] [address]Dr. Airam Tripathi Urea nitrogen/Creatinine [Mass ratio] 28.1 mg/mg Normal [facility] Comment on above: Performed By: #### C MP ####[facility] Qfjlajbqiu35[address] [place], [place] [address]Dr. Airam Tripathi XR DEXA BONE DENSITYon 01-19 XR DEXA BONE DENSITY Normal [facility] OSMOLALITYon 01-13-2022 Osmolality [Osmolality] 277 mosm/kg Normal 275-295 [facility] Comment on above: Performed By: #### O SMO ####[facility] Gtxojkeloe9330[address] [place], [place] [address]Dr. Airam Tripathi CBC AUTO DIFFon 01-11-2022 BASO # 0.0 103/ul Normal 0.0-0.1 [facility] Comment on above: Performed By: #### C BC ####[facility] Gvrgzeohbd9[address] [place], [place] [address]Dr. Airam Tripathi Basophils/100 WBC (Bld) 0.5 % Normal 0.2-2.0 [facility] Comment on above: Performed By: #### C BC ####[facility] Tgnwzpjutj4173 [place] [phone]. Airam Tripathi EO # 0.2 103/ul Normal 0.0-0.7 [facility] Comment on above: Performed By: #### C BC ####[facility] Zlesbhdrov2386 [place] [address]Dr. Airam Tripathi Eosinophils/100 WBC (Bld) 3.1 % Normal 0.9-7.0 [facility] Comment on above: Performed By: #### C BC ####[facility] Tdebkgzaqf2460 [place] [address]Dr. Airam Tripathi Erythrocyte distribution width (RBC) [Ratio] 12.5 % Normal 11.0-15.0 [facility] Comment on above: Performed By: #### C BC ####[facility] Ogdphacpmp7350[address] [place], [place] [address]Dr. Airam Tripathi Hematocrit (Bld) [Volume fraction] 34.4 % Critically low 36.0-48.0 [facility] Comment on above: Performed By: #### C BC ####[facility] Lecdnfeslg020[address] [place], [place] [address]Dr. Airam Tripathi Hemoglobin (Bld) [Mass/Vol] 11.0 g/dL Critically low 12.0-16.0 [facility] Comment on above: Performed By: #### C BC ####[facility] Pnuralntfc0847 [place] [address]Dr. Airam Tripathi IG # 0.03 10e3/ul Normal 0.00-0.03 [facility] Comment on above: Performed By: #### C BC ####[facility] Mjwjdmzcma9833 [place] [address]Dr. Airam Tripathi IG % 0.5 % Normal 0.0-0.5 [facility] Comment on above: Performed By: #### C BC ####[facility] Plxwmrnbrn[address] [place], [place] [address]Dr. Selenaneil Tripathi LYMPH # 1.6 103/ul Normal 1.2-3.8 [facility] Comment on above: Performed By: #### C BC ####[facility] Fhluayjlhp4637 [place] [phone]. Airam Tripathi Lymphocytes/100 WBC (Bld) 28.0 % Normal 20.5-60.0 [facility] Comment on above: Performed By: #### C BC ####[facility] Kaqusxujhm1281 [place] [phone]. Airam Deuce MANUAL DIFF REQ NO Normal [facility] Comment on above: Performed By: #### C BC ####[facility] Hmhukumqeg9112 [place] [address]Dr. Airam Deuce MCH (RBC) [Entitic mass] 30.1 pg Normal 26.7-34.0 [facility] Comment on above: Performed By: #### C BC ####[facility] Gzbifdhiyt5322 [place] [address]Dr. Airam Deuce MCHC (RBC) [Mass/Vol] 32.0 g/dL Normal 29.9-35.2 [facility] Comment on above: Performed By: #### C BC ####[facility] Vunneottic19[address] [place], [place] [address]Dr. Airam Deuce MCV (RBC) [Entitic vol] 94.0 fL Normal 81.0-99.0 [facility] Comment on above: Performed By: #### C BC ####[facility] Ybsnjlzvkw38[address] [place], [place] [address]Dr. Selenaneil Deuce MONO # 0.4 103/ul Normal 0.3-0.8 [facility] Comment on above: Performed By: #### C BC ####[facility] Pqqzucignx1366 [place] [address]Dr. Airam Deuce Monocytes/100 WBC (Bld) 7.5 % Normal 1.7-12.0 [facility] Comment on above: Performed By: #### C BC ####[facility] Mdqjwpaujd1219 [place] [address]Dr. Airam Tripathi NEUT # 3.5 103/ul Normal 1.4-6.5 [facility] Comment on above: Performed By: #### C BC ####[facility] Ajovvqjwyx8786 [place] [id number]. Airam Tripathi Neutrophils/100 WBC (Bld) 60.4 % Normal 43.0-75.0 [facility] Comment on above: Performed By: #### C BC ####[facility] Bkmbctypet6164 [place] [phone]. Airam Tripathi Platelet mean volume (Bld) [Entitic vol] 10.0 fL Normal 9.5-13.5 [facility] Comment on above: Performed By: #### C BC ####[facility] Xxudgbdesq6404 [place] [phone]. Airam Tripathi PLT 300 103/ul Normal 150-450 [facility] Comment on above: Performed By: #### C BC ####[facility] Dwfujywdek9906 [place] [phone]. Selenaneil Deuce RBC 3.66 106/ul Critically low 4.20-5.40 [facility] Comment on above: Performed By: #### C BC ####[facility] Odharxyiab1048 [place] [phone]. Airam Deuce WBC 5.7 103/ul Normal 4.0-11.0 [facility] Comment on above: Performed By: #### C BC ####[facility] Qjgliyhkkn1047 [place] [address]Dr. Airam Tripathi PROF 14(COMP METB)on 022 Albumin [Mass/Vol] 3.3 g/dL Critically low 3.4-5.0 [facility] Comment on above: Performed By: #### C MP ####[facility] Mejahqqoim2232 [place] [phone]. Airam Tripathi Albumin/Globulin [Mass ratio] 1.0 {ratio} Normal [facility] Comment on above: Performed By: #### C MP ####[facility] Mlgkenzjyt2878 [place] [phone]. Airam Tripathi ALP [Catalytic activity/Vol] 138 U/L Critically high 46-116 [facility] Comment on above: Performed By: #### C MP ####[facility] Flbdazafji4672 [place] [phone]. Airam Tripathi ALT [Catalytic activity/Vol] 25 U/L Normal 14-59 [facility] Comment on above: Performed By: #### C MP ####[facility] Cioanzduhg7495 [place] [address]Dr. Airam Tripathi Anion gap [Moles/Vol] 14.0 mmol/L Normal Th e [facility] Comment on above: Performed By: #### C MP ####[facility] Ayvbsqdmhk5370 [place] [address]Dr. Airam Tripathi AST [Catalytic activity/Vol] 19 U/L Normal 15-37 [facility] Comment on above: Performed By: #### C MP ####[facility] Gsolvumqli6[address] [place], [place] [address]Dr. Airam Tripathi Bilirubin [Mass/Vol] 0.3 mg/dL Normal 0.2-1.0 [facility] Comment on above: Performed By: #### C MP ####[facility] Oxzdvmujpv30[address] [place], [place] [address]Dr. Airam Tripathi Calcium [Mass/Vol] 8.7 mg/dL Normal 8.5-10.1 [facility] Comment on above: Performed By: #### C MP ####[facility] Qlhgjpchfq62[address] [place], [place] [address]Dr. Airam Tripathi Chloride [Moles/Vol] 99 mmol/L Normal 98-107 [facility] Comment on above: Performed By: #### C MP ####[facility] Qpeamyunba4560[address] [place], [place] [address]Dr. Airam Tripathi CO2 [Moles/Vol] 25.4 mmol/L Normal 21.0-32.0 [facility] Comment on above: Performed By: #### C MP ####[facility] Edgzcazxsf500[address] [place], [place] [address]Dr. Airam Tripathi Creatinine [Mass/Vol] 1.22 mg/dL Critically high 0.55-1.02 [facility] Comment on above: Performed By: #### C MP ####[facility] Ilbfoctuja4261 [place] [address]Dr. Airam Tripathi EGFR-AF LUXEMBOURGER 55 mL/min/1.73m2 Critically low >=60 [facility] Comment on above: Performed By: #### C MP ####[facility] Iyolwzedjh6276 [place] [address]Dr. Airam Tripathi EGFR-NON AF LUXEMBOURGER 45 mL/min/1.73m2 Critically low >=60 [facility] Comment on above: Performed By: #### C MP ####[facility] Kgyfpwfuzs1500 [place] [address]Dr. Airam Tripathi Globulin (S) [Mass/Vol] 3.2 g/dL Normal [facility] Comment on above: Performed By: #### C MP ####[facility] Lhbimehtgs7759 [place] [address]Dr. Airam Tripathi Glucose [Mass/Vol] 111 mg/dL Critically high 74-106 [facility] Comment on above: Performed By: #### C MP ####[facility] Bmmlmzitvh[address] [place], [place] [address]Dr. Airam Tripathi Potassium [Moles/Vol] 4.4 mmol/L Normal 3.5-5.1 [facility] Comment on above: Performed By: #### C MP ####[facility] Dlwypvfsgq[address] [place], [place] [address]Dr. Airam Tripathi Protein [Mass/Vol] 6.5 g/dL Normal 6.4-8.2 [facility] Comment on above: Performed By: #### C MP ####[facility] Fnyzzwxkpa110[address] [place] [address]Dr. Airam Tripathi Sodium [Moles/Vol] 134 mmol/L Critically low 136-145 Th [facility] Comment on above: Performed By: #### C MP ####[facility] Hgpcceaeih[address] [place], [place] [address]Dr. Airam Tripathi Urea nitrogen [Mass/Vol] 27.0 mg/dL Critically high 7.0-18.0 [facility] Comment on above: Performed By: #### C MP ####[facility] Hgvebglvvv7008 [place], [place] [address]KbKianna Tripathi Urea nitrogen/Creatinine [Mass ratio] 22.1 mg/mg Normal [facility] Comment on above: Performed By: #### C ####[facility] [address] [place], [place] [address] Tri[address]i CT CERVICAL SPINE WITHOUT CO NTRASTon 01-10-2022 CT CERVICAL SPINE WITHOUT CONTRAST [facility] Department of Radiology [address] [place] [id number] Patient Name: MABEL MOSER : 1960 Sex: F Age: Race: White Pt. Location: 29 Patient Status: D Ordered Date: 08/17/2021 10:00:00 AM Completed Date: 01/10/2022 10:24 AM Requesting Provider: ROBERT JOHNSTON Attending Provider: ROBERT JOHNSTON Report Copy To: YURI SANTANA Signs & Symptoms: M54.12 Radiculopathy, cervical region I10 History: [place] seeing Dr. Johnston after Comments: Exam: CT [...] achievable. Electronically signed: Ayleen Ny. Transcribed by: [email or web address], User Resident: Electronically Signed by: AYLEEN [place] @ 01/12/2022 12:32 PM Normal [facility] OSMOLALITYon 01-07-2022 Osmolality [Osmolality] 286 mosm/kg Normal 275-295 [facility] Comment on above: Performed By: #### O SMO ####[facility] V[address] [place] [address]Dr. Airam Tripathi CBC AUTO DIFFon 01-06-2022 BASO # 0.0 103/ul Normal 0.0-0.1 [facility] Comment on above: Performed By: #### C BC ####[facility] Xzywkhxbwo[address] [place] [id number] Tripathi Basophils/100 WBC (Bld) 0.3 % Normal 0.2-2.0 [facility] Comment on above: Performed By: #### C BC ####[facility] Zawohwxfak65[address] [place] [id number]. Airam Tripathi EO # 0.2 103/ul Normal 0.0-0.7 [facility] Comment on above: Performed By: #### C BC ####[facility] Jmzcnigvuy[address] [place] [address]Dr. Airam Tripathi Eosinophils/100 WBC (Bld) 4.1 % Normal 0.9-7.0 [facility] Comment on above: Performed By: #### C BC ####[facility] Ypueatqowi[address] [place] [address]Dr. Airam Tripathi Erythrocyte distribution width (RBC) [Ratio] 12.9 % Normal 11.0-15.0 [facility] Comment on above: Performed By: #### C BC ####[facility] Vdmckntufz[address] [place] [address]Dr. Airam Tripathi Hematocrit (Bld) [Volume fraction] 34.2 % Critically low 36.0-48.0 [facility] Comment on above: Performed By: #### C BC ####[facility] Umtqaebuyb[address] [place], [place] [address]Dr. Airam Tripathi Hemoglobin (Bld) [Mass/Vol] 10.6 g/dL Critically low 12.0-16.0 [facility] Comment on above: Performed By: #### C BC ####[facility] Txkhqwhyqa[address] [place], [place] [address]Dr. Airam Tripathi IG # 0.03 10e3/ul Normal 0.00-0.03 [facility] Comment on above: Performed By: #### C BC ####[facility] Sangjfiemg[address] [place], [place] [address]Dr. Airam Tripathi IG % 0.5 % Normal 0.0-0.5 [facility] Comment on above: Performed By: #### C BC ####[facility] Mqrellfgpd[address] [place], [place] [address]DrKianna Waltersneil Deuce LYMPH # 1.1 103/ul Critically low 1.2-3.8 [facility] Comment on above: Performed By: #### C BC ####[facility] Gimyfkddol[address] [place], [place] [address]Dr. Airam Deuce Lymphocytes/100 WBC (Bld) 18.2 % Critically low 20.5-60.0 [facility] Comment on above: Performed By: #### C BC ####[facility] [address]jwur[address]zkh[address] [place] [address]DrKianna Tripathi MANUAL DIFF REQ NO Normal [facility] Comment on above: Performed By: #### C BC ####[facility] Lzumyzoxbe36[address] [place] [address]Dr. Airam Tripathi MCH (RBC) [Entitic mass] 29.6 pg Normal 26.7-34.0 [facility] Comment on above: Performed By: #### C BC ####[facility] Wmixrjitbm2228[address] [place], [place] [address]Dr. Airam Tripathi MCHC (RBC) [Mass/Vol] 31.0 g/dL Normal 29.9-35.2 [facility] Comment on above: Performed By: #### C BC ####[facility] Bayxrpkxxz5[address] [place], [place] [address]Dr. Airam Tripathi MCV (RBC) [Entitic vol] 95.5 fL Normal 81.0-99.0 [facility] Comment on above: Performed By: #### C BC ####[facility] Cylwulrrpf[address] [place], [place] [address]DrKianna Tripathi MONO # 0.5 103/ul Normal 0.3-0.8 [facility] Comment on above: Performed By: #### C BC ####[facility] Scjgimmevi8[address] [place], [place] [address]DrKianna Tripathi Monocytes/100 WBC (Bld) 8.5 % Normal 1.7-12.0 [facility] Comment on above: Performed By: #### C BC ####[facility] Xfcjjxsqty4555[address] [place], [place] [address]DrKianna Tripathi NEUT # 4.0 103/ul Normal 1.4-6.5 [facility] Comment on above: Performed By: #### C BC ####[facility] Zhbzemtrwc3032[address] [place], [place] [address]DrKianna Tripathi Neutrophils/100 WBC (Bld) 68.4 % Normal 43.0-75.0 [facility] Comment on above: Performed By: #### C BC ####[facility] Kuv[address]orj[address] [place] [address]Dr. Airam Tripathi Platelet mean volume (Bld) [Entitic vol] 10.1 fL Normal 9.5-13.5 [facility] Comment on above: Performed By: #### C BC ####[facility] Cnhexczuyp[address] [place] [address]Dr. Airam Tripathi PLT 304 103/ul Normal 150-450 [facility] Comment on above: Performed By: #### C BC ####[facility] Jzkevefodg20[address] [place], [place] [address]Dr. Selenaneil Deuce RBC 3.58 106/ul Critically low 4.20-5.40 [facility] Comment on above: Performed By: #### C BC ####[facility] Crwttexmrt6427[address] [place], [place] [address]Dr. Airam Tripathi WBC 5.9 103/ul Normal 4.0-11.0 [facility] Comment on above: Performed By: #### C BC ####[facility] Bskhcwzntx[address] [place], [place] [address]Dr. Airam Tripathi MG MAMM RT DIAG FUon 022 MG MAMM RT DIAG FU Normal [facility] PROF 14(COMP METB)on 022 Albumin [Mass/Vol] 3.1 g/dL Critically low 3.4-5.0 [facility] Comment on above: Performed By: #### C MP ####[facility] Mxrwykvbvo9432[address] [place], [place] [address]Dr. Selenaneil Deuce Albumin/Globulin [Mass ratio] 1.0 {ratio} Normal [facility] Comment on above: Performed By: #### C MP ####[facility] Hgsxrxdtum9964[address] [place], [place] [address]Dr. Airam Deuce ALP [Catalytic activity/Vol] 143 U/L Critically high 46-116 [facility] Comment on above: Performed By: #### C MP ####[facility] Vhhmodbmcf27[address] [place] [address]Dr. Airam Tripathi ALT [Catalytic activity/Vol] 23 U/L Normal 14-59 [facility] Comment on above: Performed By: #### C MP ####[facility] Ubnxisygtj217[address] [place], [place] [address]Dr. Airam Tripathi Anion gap [Moles/Vol] 13.2 mmol/L Normal [facility] Comment on above: Performed By: #### C MP ####[facility] Kwdchtlwnc47[address] [place], [place] [address]Dr. Airam Tripathi AST [Catalytic activity/Vol] 20 U/L Normal 15-37 [facility] Comment on above: Performed By: #### C MP ####[facility] Suyeanuhnu6427[address] [place], [place] [address]Dr. Airam Tripathi Bilirubin [Mass/Vol] 0.3 mg/dL Normal 0.2-1.0 [facility] Comment on above: Performed By: #### C MP ####[facility] Efayanlnjx6725[address] [place], [place] [address]Dr. Airam Tripathi Calcium [Mass/Vol] 8.2 mg/dL Critically low 8.5-10.1 [facility] Comment on above: Performed By: #### C MP ####[facility] Jeolmmqkwz65[address] [place], [place] [address]Dr. Airam Tripathi Chloride [Moles/Vol] 100 mmol/L Normal 98-107 [facility] Comment on above: Performed By: #### C MP ####[facility] Ycctclknxs5[address] [place], [place] [address]Dr. Airam Tripathi CO2 [Moles/Vol] 26.0 mmol/L Normal 21.0-32.0 [facility] Comment on above: Performed By: #### C MP ####[facility] Vcfgkmanbm6787[address] [place], [place] [address]Dr. Airam Tripathi Creatinine [Mass/Vol] 1.52 mg/dL Critically high 0.55-1.02 [facility] Comment on above: Performed By: #### C MP ####[facility] Egjjgdfxhh[address] [place] [address]Dr. Airam Tripathi EGFR-AF LUXEMBOURGER 42 mL/min/1.73m2 Critically low >=60 [facility] Comment on above: Performed By: #### C MP ####[facility] Dzczbuivnf52[address] [place] [address]Dr. Airam Tripathi EGFR-NON AF LUXEMBOURGER 35 mL/min/1.73m2 Critically low >=60 [facility] Comment on above: Performed By: #### C MP ####[facility] Xpreyzlvtw398[address] [place], [place] [address]Dr. Airam Tripathi Globulin (S) [Mass/Vol] 3.2 g/dL Normal [facility] Comment on above: Performed By: #### C MP ####[facility] Fmqnlmrfbb0960[address] [place], [place] [address]Dr. Airam Tripathi Glucose [Mass/Vol] 84 mg/dL Normal 74-106 [facility] Comment on above: Performed By: #### C MP ####[facility] Xszmtpzuft4726[address] [place], [place] [address]Dr. Airam Deuce Potassium [Moles/Vol] 4.2 mmol/L Normal 3.5-5.1 [facility] Comment on above: Performed By: #### C MP ####[facility] Lwljjrcnmg504[address] [place], [place] [address]Dr. Airam Tripathi Protein [Mass/Vol] 6.3 g/dL Critically low 6.4-8.2 [facility] Comment on above: Performed By: #### C MP ####[facility] Bdmqqlymvg59999[address] [place], [place] [address]Dr. Airam Tripathi Sodium [Moles/Vol] 135 mmol/L Critically low 136-145 [facility] Comment on above: Performed By: #### C MP ####[facility] Chcljicbqz348[address] [place], [place] [address]Dr. Airam Tripathi Urea nitrogen [Mass/Vol] 36.0 mg/dL Critically high 7.0-18.0 [facility] Comment on above: Performed By: #### C MP ####[facility] Ohmvceuzhz[address] [place] [address]Dr. Airam Tripathi Urea nitrogen/Creatinine [Mass ratio] 23.7 mg/mg Normal [facility] Comment on above: Performed By: #### C MP ####[facility] Jltkqvczfe112[address] [place], [place] [address]Dr. Airam Tripathi US BREAST RIGHT LIMITEDon US BREAST RIGHT LIMITED Normal [facility] OSMOLALITYon 12-31-2021 Osmolality [Osmolality] 280 mosm/kg Normal 275-295 [facility] Comment on above: Performed By: #### O SMO ####[facility] Vqbrappdoa7238[address] [place], [place] [address]Dr. Airam Tripathi CBC AUTO DIFFon 12-30-2021 BASO # 0.0 103/ul Normal 0.0-0.1 [facility] Comment on above: Performed By: #### C BC ####[facility] Fxligznufu7857[address] [place], [place] [address]Dr. Airam Tripathi Basophils/100 WBC (Bld) 0.5 % Normal 0.2-2.0 [facility] Comment on above: Performed By: #### C BC ####[facility] Wxhncjasyk7668[address] [place], [place] [address]Dr. Airam Tripathi EO # 0.3 103/ul Normal 0.0-0.7 [facility] Comment on above: Performed By: #### C BC ####[facility] Wjbpthuypt9310[address] [place], [place] [address]Dr. Airam Tripathi Eosinophils/100 WBC (Bld) 3.5 % Normal 0.9-7.0 [facility] Comment on above: Performed By: #### C BC ####[facility] Dyahkgfekt2697[address] [place], [place] [address]Dr. Airam Tripathi Erythrocyte distribution width (RBC) [Ratio] 13.0 % Normal 11.0-15.0 [facility] Comment on above: Performed By: #### C BC ####[facility] Stynhgohnu9710[address] [place], [place] [address]Dr. Airam Tripathi Hematocrit (Bld) [Volume fraction] 34.2 % Critically low 36.0-48.0 [facility] Comment on above: Performed By: #### C BC ####[facility] Cfdaptczqj7136 [place] [address]Dr. Airam Tripathi Hemoglobin (Bld) [Mass/Vol] 10.4 g/dL Critically low 12.0-16.0 [facility] Comment on above: Performed By: #### C BC ####[facility] Hueprxqujt[address] [place] [address]Dr. Airam Tripathi IG # 0.04 10e3/ul Critically high 0.00-0.03 [facility] Comment on above: Performed By: #### C BC ####[facility] Niowanvfnw6[address] [place] [address]Dr. Airam Tripathi IG % 0.5 % Normal 0.0-0.5 [facility] Comment on above: Performed By: #### C BC ####[facility] Bhpmdfcozw6388[address] [place], [place] [address]Dr. Airam Tripathi LYMPH # 2.1 103/ul Normal 1.2-3.8 [facility] Comment on above: Performed By: #### C BC ####[facility] Okaflqwail[address] [place], [place] [address]Dr. Airam Tripathi Lymphocytes/100 WBC (Bld) 23.5 % Normal 20.5-60.0 [facility] Comment on above: Performed By: #### C BC ####[facility] Kbfgkjcyyj5684[address] [place], [place] [address]Dr. Airam Tripathi MANUAL DIFF REQ NO Normal [facility] Comment on above: Performed By: #### C BC ####[facility] Cplxbyczgg1026[address] [place], [place] [address]Dr. Airam Tripathi MCH (RBC) [Entitic mass] 29.4 pg Normal 26.7-34.0 [facility] Comment on above: Performed By: #### C BC ####[facility] Ryxnwvyuhq6227[address] [place], [place] [address]Dr. Airam Tripathi MCHC (RBC) [Mass/Vol] 30.4 g/dL Normal 29.9-35.2 [facility] Comment on above: Performed By: #### C BC ####[facility] Knwtxpcqow2146 [place] [id number]. Airam Tripathi MCV (RBC) [Entitic vol] 96.6 fL Normal 81.0-99.0 [facility] Comment on above: Performed By: #### C BC ####[facility] Odyhcfzgcc95[address] [place] [address]Dr. Airam Tripathi MONO # 0.6 103/ul Normal 0.3-0.8 [facility] Comment on above: Performed By: #### C BC ####[facility] Ypfoudmdty5726[address] [place], [place] [address]Dr. Airam Tripathi Monocytes/100 WBC (Bld) 6.4 % Normal 1.7-12.0 [facility] Comment on above: Performed By: #### C BC ####[facility] Dstnetdeyn3065[address] [place], [place] [address]Dr. Airam Tripathi NEUT # 5.8 103/ul Normal 1.4-6.5 [facility] Comment on above: Performed By: #### C BC ####[facility] Mjrctqgqzg9475[address] [place], [place] [address]Dr. Airam Deuce Neutrophils/100 WBC (Bld) 65.6 % Normal 43.0-75.0 [facility] Comment on above: Performed By: #### C BC ####[facility] Pattxpdqtg276[address] [place], [place] [address]Dr. Airam Deuce Platelet mean volume (Bld) [Entitic vol] 9.2 fL Critically low 9.5-13.5 [facility] Comment on above: Performed By: #### C BC ####[facility] Jmxxtupwgl1230[address] [place], [place] [address]Dr. Airam Tripathi PLT 338 103/ul Normal 150-450 [facility] Comment on above: Performed By: #### C BC ####[facility] Stapvhidvv41[address] [place] [address]Dr. Airam Tripathi RBC 3.54 106/ul Critically low 4.20-5.40 [facility] Comment on above: Performed By: #### C BC ####[facility] Spzwqgqnhc8664 [place] [address]Dr. Airam Tripathi WBC 8.9 103/ul Normal 4.0-11.0 [facility] Comment on above: Performed By: #### C BC ####[facility] Jvlhjqoval97[address] [place] [address]Dr. Airam Tripathi MG MAMM SCREEN 3D GUMARO CADon 12-30-2021 MG MAMM SCREEN 3D GUMARO CAD Normal [facility] PROF 14(COMP METB)on 022 Albumin [Mass/Vol] 3.6 g/dL Normal 3.4-5.0 [facility] Comment on above: Performed By: #### C MP ####[facility] Eaeapuhqmm801[address] [place], [place] [address]Dr. Airam Tripathi Albumin/Globulin [Mass ratio] 1.1 {ratio} Normal [facility] Comment on above: Performed By: #### C MP ####[facility] Lhsnrfuwkp5526[address] [place], [place] [address]Dr. Airam Tripathi ALP [Catalytic activity/Vol] 117 U/L Critically high 46-116 [facility] Comment on above: Performed By: #### C MP ####[facility] Tibpuickpl6690[address] [place], [place] [address]Dr. Airam Tripathi ALT [Catalytic activity/Vol] 26 U/L Normal 14-59 [facility] Comment on above: Performed By: #### C MP ####[facility] Chgmcltmbr1125[address] [place], [place] [address]Dr. Airam Tripathi Anion gap [Moles/Vol] 11.2 mmol/L Normal [facility] Comment on above: Performed By: #### C MP ####[facility] Xoiygniuka379[address] [place], [place] [address]Dr. Airam Tripathi AST [Catalytic activity/Vol] 29 U/L Normal 15-37 [facility] Comment on above: Performed By: #### C MP ####[facility] Tbopgtsdqv0413[address] [place], [place] [address]Dr. Airam Tripathi Bilirubin [Mass/Vol] 0.3 mg/dL Normal 0.2-1.0 [facility] Comment on above: Performed By: #### C MP ####[facility] Fcsniqghdp201[address] [place], [place] [address]Dr. Airam Deuce Calcium [Mass/Vol] 9.1 mg/dL Normal 8.5-10.1 [facility] Comment on above: Performed By: #### C MP ####[facility] Rvgfkizrxh7580[address] [place], [place] [address]Dr. Airam Tripathi Chloride [Moles/Vol] 101 mmol/L Normal 98-107 [facility] Comment on above: Performed By: #### C MP ####[facility] Wpnxkemvzm9117[address] [place], [place] [address]Dr. Selenaneil Deuce CO2 [Moles/Vol] 26.8 mmol/L Normal 21.0-32.0 [facility] Comment on above: Performed By: #### C MP ####[facility] Dwjhkqjeeg444[address] [place], [place] [address]Dr. Airam Tripathi Creatinine [Mass/Vol] 1.56 mg/dL Critically high 0.55-1.02 [facility] Comment on above: Performed By: #### C MP ####[facility] Jqwrborldi12[address] [place], [place] [address]Dr. Selenaneil Deuce EGFR-AF LUXEMBOURGER 41 mL/min/1.73m2 Critically low >=60 [facility] Comment on above: Performed By: #### C MP ####[facility] Wivzcsvreu8675[address] [place], [place] [address]Dr. Airam Tripathi EGFR-NON AF LUXEMBOURGER 34 mL/min/1.73m2 Critically low >=60 [facility] Comment on above: Performed By: #### C MP ####[facility] Dgsruawuiw2750[address] [place], [place] [address]Dr. Airam Tripathi Globulin (S) [Mass/Vol] 3.3 g/dL Normal [facility] Comment on above: Performed By: #### C MP ####[facility] Tilewlvfgp929[address] [place], [place] [address]Dr. Airam Tripathi Glucose [Mass/Vol] 84 mg/dL Normal 74-106 [facility] Comment on above: Performed By: #### C MP ####[facility] Fczkqlkrky[address] [place] [address]Dr. Airam Tripathi Potassium [Moles/Vol] 5.0 mmol/L Normal 3.5-5.1 [facility] Comment on above: Performed By: #### C MP ####[facility] Afkssqgotk2177[address] [place], [place] [address]Dr. Airam Tripathi Protein [Mass/Vol] 6.9 g/dL Normal 6.4-8.2 [facility] Comment on above: Performed By: #### C MP ####[facility] Xabgjnvdwu3038[address] [place], [place] [address]Dr. Airam Tripathi Sodium [Moles/Vol] 134 mmol/L Critically low 136-145 [facility] Comment on above: Performed By: #### C MP ####[facility] Ktebdqvwud1044[address] [place], [place] [address]Dr. Airam Tripathi Urea nitrogen [Mass/Vol] 28.0 mg/dL Critically high 7.0-18.0 [facility] Comment on above: Performed By: #### C MP ####[facility] Vtmxxkybbl7364[address] [place], [place] [address]Dr. Airam Tripathi Urea nitrogen/Creatinine [Mass ratio] 17.9 mg/mg Normal [facility] Comment on above: Performed By: #### C MP ####[facility] Yjbwxdazwh3204[address] [place], [place] [address]Dr. Airam Tripathi OSMOLALITYon 12-24-2021 Osmolality [Osmolality] 287 mosm/kg Normal 275-295 [facility] Comment on above: Performed By: #### O SMO ####[facility] Dxmkdaewom3470[address] [place], [place] [address]DrKianna Tripathi CBC AUTO DIFFon 12-22-2021 BASO # 0.0 103/ul Normal 0.0-0.1 [facility] Comment on above: Performed By: #### C BC ####[facility] Fxqjzyrnnk5036[address] [place], [place] [address]Dr. Airam Tripathi Basophils/100 WBC (Bld) 0.5 % Normal 0.2-2.0 [facility] Comment on above: Performed By: #### C BC ####[facility] Zxknlmchgl[address] [place] [address]Dr. Airam Tripathi EO # 0.4 103/ul Normal 0.0-0.7 [facility] Comment on above: Performed By: #### C BC ####[facility] Zhvlragott2436[address] [place], [place] [address]Dr. Airam Tripathi Eosinophils/100 WBC (Bld) 6.4 % Normal 0.9-7.0 [facility] Comment on above: Performed By: #### C BC ####[facility] Bbgenvidwu416[address] [place], [place] [address]Dr. Airam Tripathi Erythrocyte distribution width (RBC) [Ratio] 13.2 % Normal 11.0-15.0 [facility] Comment on above: Performed By: #### C BC ####[facility] Cpfdptktur[address] [place], [place] [address]Dr. Airam Tripathi Hematocrit (Bld) [Volume fraction] 32.2 % Critically low 36.0-48.0 [facility] Comment on above: Performed By: #### C BC ####[facility] Tnvzowfgjb8888[address] [place], [place] [address]Dr. Airam Tripathi Hemoglobin (Bld) [Mass/Vol] 10.1 g/dL Critically low 12.0-16.0 [facility] Comment on above: Performed By: #### C BC ####[facility] Tshpwbqgjx0654[address] [place], [place] [address]Dr. Airam Tripathi IG # 0.03 10e3/ul Normal 0.00-0.03 [facility] Comment on above: Performed By: #### C BC ####[facility] Irdcylnhwp19[address] [place], [place] [address]Dr. Airam Tripathi IG % 0.5 % Normal 0.0-0.5 [facility] Comment on above: Performed By: #### C BC ####[facility] Tfhctjmdlz[address] [place] [address]Dr. Airam Deuce LYMPH # 1.3 103/ul Normal 1.2-3.8 [facility] Comment on above: Performed By: #### C BC ####[facility] Dqkmhbwkrx3926 [place] [address]Dr. Selenaneil Tripathi Lymphocytes/100 WBC (Bld) 20.5 % Normal 20.5-60.0 [facility] Comment on above: Performed By: #### C BC ####[facility] Chlobmautf55[address] [place], [place] [address]Dr. Selenaneil Tripathi MANUAL DIFF REQ NO Normal [facility] Comment on above: Performed By: #### C BC ####[facility] [facility] [address]sjizohnzd[address] [place] [address]Dr. Airam Deuce MCH (RBC) [Entitic mass] 30.1 pg Normal 26.7-34.0 [facility] Comment on above: Performed By: #### C BC ####[facility] Nrtvsxszbz[address] [place], [place] [address]Dr. Airam Deuce MCHC (RBC) [Mass/Vol] 31.4 g/dL Normal 29.9-35.2 [facility] Comment on above: Performed By: #### C BC ####[facility] Kdxjsrondd[address] [place], [place] [address]Dr. Selenaneil Tripathi MCV (RBC) [Entitic vol] 95.8 fL Normal 81.0-99.0 [facility] Comment on above: Performed By: #### C BC ####[facility] Lsxrlolcqi466[address] [place], [place] [address]Dr. Airam Tripathi MONO # 0.5 103/ul Normal 0.3-0.8 [facility] Comment on above: Performed By: #### C BC ####[facility] Szavyghllg[address] [place], [place] [address]Dr. Selenaneil Tripathi Monocytes/100 WBC (Bld) 7.4 % Normal 1.7-12.0 [facility] Comment on above: Performed By: #### C BC ####[facility] Fuedcbhgtr[address] [place], [place] [address]Dr. Airam Tripathi NEUT # 3.9 103/ul Normal 1.4-6.5 [facility] Comment on above: Performed By: #### C BC ####[facility] Uighmwrwqi[address] [place] [address]Dr. Airam Tripathi Neutrophils/100 WBC (Bld) 64.7 % Normal 43.0-75.0 [facility] Comment on above: Performed By: #### C BC ####[facility] Lpoevbngqy[address] [place] [address]Dr. Airam Tripathi Platelet mean volume (Bld) [Entitic vol] 9.2 fL Critically low 9.5-13.5 [facility] Comment on above: Performed By: #### C BC ####[facility] Desgzcoioo[address] [place] [address]Dr. Airam Deuce PLT 309 103/ul Normal 150-450 [facility] Comment on above: Performed By: #### C BC ####[facility] Twxanxixej8307 [place] [address]Dr. Airam Deuce RBC 3.36 106/ul Critically low 4.20-5.40 [facility] Comment on above: Performed By: #### C BC ####[facility] Keimdsoewb[address] [place] [address]Dr. Airam Tripathi WBC 6.1 103/ul Normal 4.0-11.0 [facility] Comment on above: Performed By: #### C BC ####[facility] Rwrayevxrh2[address] [place] [address]DrKianna Tripathi PROF 14(COMP METB)on 022 Albumin [Mass/Vol] 3.2 g/dL Critically low 3.4-5.0 [facility] Comment on above: Performed By: #### C MP ####[facility] Wzkbxbuegk3[address] [place] [address]Dr. Selenaneil Deuce Albumin/Globulin [Mass ratio] 1.1 {ratio} Normal [facility] Comment on above: Performed By: #### C MP ####[facility] Asdyqmvnxx75[address] [place] [address]Dr. Airam Tripathi ALP [Catalytic activity/Vol] 123 U/L Critically high 46-116 [facility] Comment on above: Performed By: #### C MP ####[facility] Jnmgkvfmkk957[address] [place], [place] [address]Dr. Airam Tripathi ALT [Catalytic activity/Vol] 26 U/L Normal 14-59 [facility] Comment on above: Performed By: #### C MP ####[facility] Ucyqskifaw05[address] [place], [place] [address]Dr. Airam Deuce Anion gap [Moles/Vol] 14.5 mmol/L Normal Th [facility] Comment on above: Performed By: #### C MP ####[facility] Marpmntkox4030[address] [place], [place] [address]Dr. Airam Deuce AST [Catalytic activity/Vol] 23 U/L Normal 15-37 [facility] Comment on above: Performed By: #### C MP ####[facility] Ktdmrakgtu8084[address] [place], [place] [address]Dr. Airam Deuce Bilirubin [Mass/Vol] 0.3 mg/dL Normal 0.2-1.0 [facility] Comment on above: Performed By: #### C MP ####[facility] Jcltcxabbd536[address] [place], [place] [address]Dr. Airam Deuce Calcium [Mass/Vol] 8.2 mg/dL Critically low 8.5-10.1 [facility] Comment on above: Performed By: #### C MP ####[facility] Fucwohuqzu6454[address] [place], [place] [address]Dr. Selenaneil Tripathi Chloride [Moles/Vol] 102 mmol/L Normal 98-107 [facility] Comment on above: Performed By: #### C MP ####[facility] Dythysaqha4148[address] [place], [place] [address]Dr. Airam Tripathi CO2 [Moles/Vol] 23.2 mmol/L Normal 21.0-32.0 [facility] Comment on above: Performed By: #### C MP ####[facility] Kedtfejguc96[address] [place], [place] [address]Dr. Airam Tripathi Creatinine [Mass/Vol] 1.98 mg/dL Critically high 0.55-1.02 [facility] Comment on above: Performed By: #### C MP ####[facility] Mjfsdpffsk[address] [place] [address]Dr. Airam Tripathi EGFR-AF LUXEMBOURGER 31 mL/min/1.73m2 Critically low >=60 [facility] Comment on above: Performed By: #### C MP ####[facility] Tpvtfidqxc1702 [place] [address]Dr. Airam Deuce EGFR-NON AF LUXEMBOURGER 26 mL/min/1.73m2 Critically low >=60 [facility] Comment on above: Performed By: #### C MP ####[facility] Wmkrugqvpo7378[address] [place], [place] [address]Dr. Airam Tripathi Globulin (S) [Mass/Vol] 3.0 g/dL Normal [facility] Comment on above: Performed By: #### C MP ####[facility] Qqbrjlompt3500[address] [place], [place] [address]Dr. Selenaneil Deuce Glucose [Mass/Vol] 131 mg/dL Critically high 74-106 [facility] Comment on above: Performed By: #### C MP ####[facility] Hwiqfyejyu455[address] [place], [place] [address]Dr. Airam Tripathi Potassium [Moles/Vol] 4.7 mmol/L Normal 3.5-5.1 [facility] Comment on above: Performed By: #### C MP ####[facility] Crhzjorjpe5057[address] [place], [place] [address]Dr. Airam Tripathi Protein [Mass/Vol] 6.2 g/dL Critically low 6.4-8.2 Th [facility] Comment on above: Performed By: #### C MP ####[facility] Mczyavmclg7505[address] [place], [place] [address]Dr. Airam Tripathi Sodium [Moles/Vol] 135 mmol/L Critically low 136-145 Th [facility] Comment on above: Performed By: #### C MP ####[facility] Upnvdhsmcl267[address] [place], [place] [address]Dr. Airam Tripathi Urea nitrogen [Mass/Vol] 37.0 mg/dL Critically high 7.0-18.0 [facility] Comment on above: Performed By: #### C MP ####[facility] Xopuwdcqyh10[address] [place] [address]Dr. Airam Tripathi Urea nitrogen/Creatinine [Mass ratio] 18.7 mg/mg Normal [facility] Comment on above: Performed By: #### C MP ####[facility] Ugqjklyhvq444[address] [place], [place] [address]Dr. Airam Tripathi OSMOLALITYon 12-18-2021 Osmolality [Osmolality] 271 mosm/kg Critically low 275-295 [facility] Comment on above: Performed By: #### O SMO ####[facility] Cwbqxxrbuk2124[address] [place], [place] [address]Dr. Airam Tripathi CBC AUTO DIFFon 12-16-2021 BASO # 0.0 103/ul Normal 0.0-0.1 [facility] Comment on above: Performed By: #### C BC ####[facility] Okqazrbsjt8690[address] [place], [place] [address]Dr. Airam Deuce Basophils/100 WBC (Bld) 0.6 % Normal 0.2-2.0 [facility] Comment on above: Performed By: #### C BC ####[facility] Onhbbfrnbg1060[address] [place], [place] [address]Dr. Airam Tripathi EO # 0.1 103/ul Normal 0.0-0.7 [facility] Comment on above: Performed By: #### C BC ####[facility] Uwkmrkovux038[address] [place], [place] [address]Dr. Airam Deuce Eosinophils/100 WBC (Bld) 2.1 % Normal 0.9-7.0 [facility] Comment on above: Performed By: #### C BC ####[facility] Itxgmhypaa8617[address] [place], [place] [address]Dr. Airam Tripathi Erythrocyte distribution width (RBC) [Ratio] 13.1 % Normal 11.0-15.0 [facility] Comment on above: Performed By: #### C BC ####[facility] [address]shp[address] [place] [address]Dr. Airam Tripathi Hematocrit (Bld) [Volume fraction] 33.8 % Critically low 36.0-48.0 [facility] Comment on above: Performed By: #### C BC ####[facility] Ydhnjuspsd44[address] [place] [address]Dr. Airam Tripathi Hemoglobin (Bld) [Mass/Vol] 10.7 g/dL Critically low 12.0-16.0 [facility] Comment on above: Performed By: #### C BC ####[facility] Knrnatqsvj6[address] [place] [address]Dr. Airam Tripathi IG # 0.02 10e3/ul Normal 0.00-0.03 [facility] Comment on above: Performed By: #### C BC ####[facility] Hqvoocdjde0337[address] [place], [place] [address]Dr. Airam Tripathi IG % 0.3 % Normal 0.0-0.5 [facility] Comment on above: Performed By: #### C BC ####[facility] Uabaqfcpdg7916[address] [place], [place] [address]Dr. Airam Tripathi LYMPH # 1.2 103/ul Normal 1.2-3.8 [facility] Comment on above: Performed By: #### C BC ####[facility] Plzcemziwx617[address] [place], [place] [address]Dr. Airam Tripathi Lymphocytes/100 WBC (Bld) 17.3 % Critically low 20.5-60.0 [facility] Comment on above: Performed By: #### C BC ####[facility] Dndjjtqbuk644[address] [place], [place] [address]Dr. Airam Tripathi MANUAL DIFF REQ NO Normal [facility] Comment on above: Performed By: #### C BC ####[facility] Dxtpvwxxts1284[address] [place], [place] [address]Dr. Airam Tripathi MCH (RBC) [Entitic mass] 30.2 pg Normal 26.7-34.0 [facility] Comment on above: Performed By: #### C BC ####[facility] Omuecswvmc216[address] [place] [id number]. Airam Tripathi MCHC (RBC) [Mass/Vol] 31.7 g/dL Normal 29.9-35.2 [facility] Comment on above: Performed By: #### C BC ####[facility] Wcyeqvpnkn5662 [place] [id number]. Airam Tripathi MCV (RBC) [Entitic vol] 95.5 fL Normal 81.0-99.0 [facility] Comment on above: Performed By: #### C BC ####[facility] Oktxnwlhqa3[address] [place] [id number]. Airam Tripathi MONO # 0.5 103/ul Normal 0.3-0.8 [facility] Comment on above: Performed By: #### C BC ####[facility] Vxjzvdpspc17[address] [place] [address]Dr. Airam Deuce Monocytes/100 WBC (Bld) 6.8 % Normal 1.7-12.0 [facility] Comment on above: Performed By: #### C BC ####[facility] Pdgjysamfl[address] [place], [place] [address]Dr. Airam Tripathi NEUT # 4.9 103/ul Normal 1.4-6.5 [facility] Comment on above: Performed By: #### C BC ####[facility] Lqpvhnbiem9539 [place] [id number]. Airam Tripathi Neutrophils/100 WBC (Bld) 72.9 % Normal 43.0-75.0 [facility] Comment on above: Performed By: #### C BC ####[facility] Tozcggqyft0731 [place] [phone]. Airam Tripathi Platelet mean volume (Bld) [Entitic vol] 9.0 fL Critically low 9.5-13.5 [facility] Comment on above: Performed By: #### C BC ####[facility] Fzrrxcqvgn5732 [place] [phone]. Airam Deuce PLT 297 103/ul Normal 150-450 [facility] Comment on above: Performed By: #### C BC ####[facility] Gfqoujxnhc11[address] [place] [phone]. Selenaneil Deuce RBC 3.54 106/ul Critically low 4.20-5.40 [facility] Comment on above: Performed By: #### C BC ####[facility] Ogq[address]wov[address] [place] [address]Dr. Airam Tripathi WBC 6.8 103/ul Normal 4.0-11.0 [facility] Comment on above: Performed By: #### C BC ####[facility] Yxdvsxeqbt1661 [place] [address]Dr. Airam Tripathi PROF 14(COMP METB)on 022 Albumin [Mass/Vol] 3.2 g/dL Critically low 3.4-5.0 [facility] Comment on above: Performed By: #### C MP ####[facility] Mqsbavbqqg2285[address] [place], [place] [address]Dr. Airam Tripathi Albumin/Globulin [Mass ratio] 1.0 {ratio} Normal [facility] Comment on above: Performed By: #### C MP ####[facility] Zfeyvaajxs2537[address] [place], [place] [address]Dr. Airam Tripathi ALP [Catalytic activity/Vol] 109 U/L Normal 46-116 [facility] Comment on above: Performed By: #### C MP ####[facility] Dhaoqlwcpg6088[address] [place], [place] [address]Dr. Airam Tripathi ALT [Catalytic activity/Vol] 23 U/L Normal 14-59 [facility] Comment on above: Performed By: #### C MP ####[facility] Agstzfjaqp379[address] [place], [place] [address]Dr. Airam Tripathi Anion gap [Moles/Vol] 11.6 mmol/L Normal [facility] Comment on above: Performed By: #### C MP ####[facility] Rtrtpxligz2814[address] [place], [place] [address]Dr. Airam Tripathi AST [Catalytic activity/Vol] 24 U/L Normal 15-37 [facility] Comment on above: Performed By: #### C MP ####[facility] Fvmlftiiuy0[address] [place] [address]Dr. Airam Deuce Bilirubin [Mass/Vol] 0.2 mg/dL Normal 0.2-1.0 [facility] Comment on above: Performed By: #### C MP ####[facility] Rkabquzmkl6498[address] [place], [place] [address]Dr. Airam Deuce Calcium [Mass/Vol] 8.6 mg/dL Normal 8.5-10.1 [facility] Comment on above: Performed By: #### C MP ####[facility] Pxqspvdklt8557[address] [place], [place] [address]Dr. Airam Tripathi Chloride [Moles/Vol] 100 mmol/L Normal 98-107 [facility] Comment on above: Performed By: #### C MP ####[facility] Nuwqcwbump2150[address] [place], [place] [address]Dr. Airam Tripathi CO2 [Moles/Vol] 24.7 mmol/L Normal 21.0-32.0 [facility] Comment on above: Performed By: #### C MP ####[facility] Lacvaqoawe575[address] [place], [place] [address]Dr. Selenaneil Tripathi Creatinine [Mass/Vol] 1.11 mg/dL Critically high 0.55-1.02 [facility] Comment on above: Performed By: #### C MP ####[facility] Aambrlbgjj8240[address] [place], [place] [address]Dr. Airam Tripathi EGFR-AF LUXEMBOURGER >60 Normal >=60 [facility] Comment on above: Performed By: #### C MP ####[facility] Deqlivcasj8848[address] [place], [place] [address]Dr. Airam Tripathi EGFR-NON AF LUXEMBOURGER 50 mL/min/1.73m2 Critically low >=60 [facility] Comment on above: Performed By: #### C MP ####[facility] Gsvqzxygsf786[address] [place], [place] [address]Dr. Airam Tripathi Globulin (S) [Mass/Vol] 3.1 g/dL Normal [facility] Comment on above: Performed By: #### C MP ####[facility] Qwuzpyuxne[address] [place], [place] [address]Dr. Airam Tripathi Glucose [Mass/Vol] 79 mg/dL Normal 74-106 [facility] Comment on above: Performed By: #### C MP ####[facility] Yxvbayhoid329[address] [place], [place] [address]Dr. Airam Tripathi Potassium [Moles/Vol] 5.3 mmol/L Critically high 3.5-5.1 [facility] Comment on above: Performed By: #### C MP ####[facility] Znlbjeyhxe4823[address] [place], [place] [address]Dr. Airam Tripathi Protein [Mass/Vol] 6.3 g/dL Critically low 6.4-8.2 Th [facility] Comment on above: Performed By: #### C MP ####[facility] Ouamclbati[address] [place], [place] [address]Dr. Airam Tripathi Sodium [Moles/Vol] 131 mmol/L Critically low 136-145 Th [facility] Comment on above: Performed By: #### C MP ####[facility] Ijgyqrfhfk718[address] [place], [place] [address]Dr. Airam Tripathi Urea nitrogen [Mass/Vol] 20.0 mg/dL Critically high 7.0-18.0 [facility] Comment on above: Performed By: #### C MP ####[facility] Jpqzqrkvcx586[address] [place], [place] [address]Dr. Airam Tripathi Urea nitrogen/Creatinine [Mass ratio] 18.0 mg/mg Normal [facility] Comment on above: Performed By: #### C MP ####[facility] Djnfreehtq017[address] [place], [place] [address]Dr. Airam Deuce OSMOLALITYon 12-09-2021 Osmolality [Osmolality] 279 mosm/kg Normal 275-295 [facility] Comment on above: Performed By: #### O SMO ####[facility] Unthuwnhsb403[address] [place], [place] [address]Dr. Airam Tripathi CBC AUTO DIFFon 12-07-2021 BASO # 0.0 103/ul Normal 0.0-0.1 [facility] Comment on above: Performed By: #### C BC ####[facility] Dreolksmxn18[address] [place] [id number]. Airam Tripathi Basophils/100 WBC (Bld) 0.5 % Normal 0.2-2.0 [facility] Comment on above: Performed By: #### C BC ####[facility] Gyrrsqfkcb4425 [place] [phone]. Airam Tripathi EO # 0.4 103/ul Normal 0.0-0.7 [facility] Comment on above: Performed By: #### C BC ####[facility] Mllgicmzpe[address] [place], [place] [address]Dr. Airam Tripathi Eosinophils/100 WBC (Bld) 6.3 % Normal 0.9-7.0 [facility] Comment on above: Performed By: #### C BC ####[facility] Utalvqmoyo8432[address] [place], [place] [address]Dr. Airam Tripathi Erythrocyte distribution width (RBC) [Ratio] 13.3 % Normal 11.0-15.0 [facility] Comment on above: Performed By: #### C BC ####[facility] Anzvrjyydj[address] [place], [place] [address]Dr. Airam Tripathi Hematocrit (Bld) [Volume fraction] 29.5 % Critically low 36.0-48.0 [facility] Comment on above: Performed By: #### C BC ####[facility] Ghigxusucr[address] [place], [place] [address]Dr. Airam Tripathi Hemoglobin (Bld) [Mass/Vol] 9.1 g/dL Critically low 12.0-16.0 [facility] Comment on above: Performed By: #### C BC ####[facility] Uvlpyencxz98[address] [place] [id number]. Airam Tripathi IG # 0.04 10e3/ul Critically high 0.00-0.03 [facility] Comment on above: Performed By: #### C BC ####[facility] Bseerjrlzw[address] [place], [place] [address]Dr. Airam Tripathi IG % 0.7 % Critically high 0.0-0.5 [facility] Comment on above: Performed By: #### C BC ####[facility] Ocxwwxhnil7[address] [place] [phone]. Airam Deuce LYMPH # 1.3 103/ul Normal 1.2-3.8 [facility] Comment on above: Performed By: #### C BC ####[facility] Fjxdsojsop9747 [place] [phone]. Airam Deuce Lymphocytes/100 WBC (Bld) 20.9 % Normal 20.5-60.0 [facility] Comment on above: Performed By: #### C BC ####[facility] Mwhypwatcy[address] [place] [address]Dr. Selenaneil Tripathi MANUAL DIFF REQ NO Normal [facility] Comment on above: Performed By: #### C BC ####[facility] Bsoeeckemz[address] [place] [address]Dr. Airam Deuce MCH (RBC) [Entitic mass] 30.1 pg Normal 26.7-34.0 [facility] Comment on above: Performed By: #### C BC ####[facility] Qhxkjsbwam7913 [place] [phone]. Airam Tripathi MCHC (RBC) [Mass/Vol] 30.8 g/dL Normal 29.9-35.2 [facility] Comment on above: Performed By: #### C BC ####[facility] Mhkhllhirl9164 [place] [phone]. Airam Deuce MCV (RBC) [Entitic vol] 97.7 fL Normal 81.0-99.0 [facility] Comment on above: Performed By: #### C BC ####[facility] Zzdnqdsbhb9318 [place] [phone]. Airam Deuce MONO # 0.4 103/ul Normal 0.3-0.8 [facility] Comment on above: Performed By: #### C BC ####[facility] Cmgkmpepxc7[address] [place] [address]Dr. Airam Deuce Monocytes/100 WBC (Bld) 6.6 % Normal 1.7-12.0 [facility] Comment on above: Performed By: #### C BC ####[facility] Fizsjiztmi9[address] [place] [phone]. Airam Tripathi NEUT # 4.0 103/ul Normal 1.4-6.5 [facility] Comment on above: Performed By: #### C BC ####[facility] Rbfeckkbsw7175 [place] [phone]. Airam Tripathi Neutrophils/100 WBC (Bld) 65.0 % Normal 43.0-75.0 [facility] Comment on above: Performed By: #### C BC ####[facility] Movjkiexlv2[address] [place] [phone]. Airam Tripathi Platelet mean volume (Bld) [Entitic vol] 9.4 fL Critically low 9.5-13.5 [facility] Comment on above: Performed By: #### C BC ####[facility] Atdpcbqbpp8[address] [place] [address]Dr. Airam Deuce PLT 224 103/ul Normal 150-450 [facility] Comment on above: Performed By: #### C BC ####[facility] Bnycrvcoud9807 [place] [phone]. Airam Tripathi RBC 3.02 106/ul Critically low 4.20-5.40 [facility] Comment on above: Performed By: #### C BC ####[facility] Igerqhwwxg3236 [place] [phone]. Airam Tripathi WBC 6.1 103/ul Normal 4.0-11.0 [facility] Comment on above: Performed By: #### C BC ####[facility] Dcbobuijcy1485 [place] [address]DrKianna Tripathi PROF 14(COMP METB)on 022 Albumin [Mass/Vol] 2.8 g/dL Critically low 3.4-5.0 [facility] Comment on above: Performed By: #### C MP ####[facility] Xlemzvbjhk23[address] [place] [phone]. Airam Deuce Albumin/Globulin [Mass ratio] 1.1 {ratio} Normal [facility] Comment on above: Performed By: #### C MP ####[facility] Oqnkqolvlg08[address] [place] [phone]. Airam Tripathi ALP [Catalytic activity/Vol] 116 U/L Normal 46-116 [facility] Comment on above: Performed By: #### C MP ####[facility] Hpdlwdogee39[address] [place] [phone]. Airam Tripathi ALT [Catalytic activity/Vol] 23 U/L Normal 14-59 [facility] Comment on above: Performed By: #### C MP ####[facility] Dfmlxgztsu27[address] [place] [address]Dr. Airam Tripathi Anion gap [Moles/Vol] 12.1 mmol/L Normal [facility] Comment on above: Performed By: #### C MP ####[facility] Hkbyhknhgg59[address] [place] [address]Dr. Airam Tripathi AST [Catalytic activity/Vol] 23 U/L Normal 15-37 [facility] Comment on above: Performed By: #### C MP ####[facility] Usdieqlkhe[address] [place] [address]Dr. Airam Tripathi Bilirubin [Mass/Vol] 0.2 mg/dL Normal 0.2-1.0 [facility] Comment on above: Performed By: #### C MP ####[facility] Icujxvdktk[address] [place], [place] [address]Dr. Airam Tripathi Calcium [Mass/Vol] 8.1 mg/dL Critically low 8.5-10.1 [facility] Comment on above: Performed By: #### C MP ####[facility] [facility] [address] [place] [address]Dr. Airam Tripathi Chloride [Moles/Vol] 105 mmol/L Normal 98-107 [facility] Comment on above: Performed By: #### C MP ####[facility] [address] [address]Dr. Airam Tripathi CO2 [Moles/Vol] 22.1 mmol/L Normal 21.0-32.0 [facility] Comment on above: Performed By: #### C MP ####[facility] [address] [address]Dr. Airam Tripathi Creatinine [Mass/Vol] 1.06 mg/dL Critically high 0.55-1.02 [facility] Comment on above: Performed By: #### C MP ####[facility] [address] [address]Dr. Airam Tripathi EGFR-AF LUXEMBOURGER >60 Normal >=60 [facility] Comment on above: Performed By: #### C MP ####[facility] [address] [place], [place] [address]Dr. Airam Tripathi EGFR-NON AF LUXEMBOURGER 53 mL/min/1.73m2 Critically low >=60 [facility] Comment on above: Performed By: #### C MP ####[facility] [address] [place], [place] [address]Dr. Airam Tripathi Globulin (S) [Mass/Vol] 2.6 g/dL Normal [facility] Comment on above: Performed By: #### C MP ####[facility] [address] [place], [place] [address]Dr. Airam Tripathi Glucose [Mass/Vol] 109 mg/dL Critically high 74-106 [facility] Comment on above: Performed By: #### C MP ####[facility] [address] [place], [place] [address]Dr. Airam Tripathi Potassium [Moles/Vol] 4.2 mmol/L Normal 3.5-5.1 [facility] Comment on above: Performed By: #### C MP ####[facility] [address] [place], [place] [address]Dr. Airam Deuce Protein [Mass/Vol] 5.4 g/dL Critically low 6.4-8.2 Th [facility] Comment on above: Performed By: #### C MP ####[facility] [address] [place], [place] [address]Dr. Airam Tripathi Sodium [Moles/Vol] 135 mmol/L Critically low 136-145 Th [facility] Comment on above: Performed By: #### C MP ####[facility] [address] [place], [place] [address]Dr. Airam Tripathi Urea nitrogen [Mass/Vol] 15.0 mg/dL Normal 7.0-18.0 [facility] Comment on above: Performed By: #### C MP ####[facility] [address] [place], [place] [address]Nz. Airam Tripathi Urea nitrogen/Creatinine [Mass ratio] 14.2 mg/mg Normal [facility] Comment on above: Performed By: #### C MP ####[facility] [address] [place], [place] [address]Bb. Airam Tripathi Operative Reporton Operative Report MR#: [id number] S [facility] Pt. Name: Mabel Moser Room [...] subscapularis. 3. Right shoulder proximal biceps tenotomy. RECRUITING INTERN: Alex Serra M.D. ANESTHESIA: General. INDICATIONS: The [...] Reza M.D. Date Trans: 08/19/2021 11:37 A/carter [id number] cc: Yuri Santana M.D. [address] [place] [address] Normal [facility] POC GLUCOSE LABon 08-19-2021 Glucose [Mass/Vol] 77 mg/dL Normal 70-100 [facility] Comment on above: Performed By: #### 8 [id number] #### [facility] [address] [place], [place] [address] [place] [address] 04-05-2021 CNPN Telephone (HEMASA) -- MABEL MOSER ([id number]) 1960 F Date Time Provider Department 04/05/21 YEVGENIY FORD During your visit today, we recorded the following information about you: Chana Gallegos [facility] 04/05/2021 7:57 AM Signed Records faxed to the cancer center at [facility]. Patient to follow with Dr. Liu. Release [...] Status:Closed by CHANA LEE on 04/05/21 Normal [facility] OBSOLETEon 01-11-2021 OBSOLETE Refill (HEMASA) -- MABEL MOSER Ivy ([id number]) 1960 F Date Time Provider Department 01/11/21 [...] Status:Closed by YEVGENIY FORD on 01/12/21 Normal [facility] Vital Signs Date Time Vital Sign Value Performing Clinician Facility 03-26-2024 11:47-0400 Body mass index (BMI) [Ratio] 41.1 kg/m2 [facility] 03-26-2024 11:47-0400 Diastolic blood pressure 77 mm[Hg] [facility] 03-26-2024 11:47-0400 Heart rate 81 /min [facility] 03-26-2024 11:47-0400 Respiratory rate 18 /min [facility] 03-26-2024 11:47-0400 SaO2% (BldA) [Mass fraction] 92 % [facility] 03-26-2024 11:47-0400 Systolic blood pressure 140 mm[Hg] [facility] 03-26-2024 08:52-0400 Body height 157.48 cm [facility] 03-26-2024 08:52-0400 Body temperature 98.1 [degF] [facility] 03-26-2024 08:52-0400 Body weight 102.05 kg [facility] 03-05-2024 13:52-0400 Blood Pressure Location Migel AHUMADAL [facility] 03-05-2024 13:52-0400 Diastolic blood pressure 80 mm[Hg] Migel NILL [facility] 03-05-2024 13:52-0400 Heart rate 77 /min Migel AHUMADAL [facility] 03-05-2024 13:52-0400 Respiratory rate 16 /min Migel NILL [facility] 03-05-2024 13:52-0400 Systolic blood pressure 116 mm[Hg] Migel AHUMADAL [facility] 07-03-2023 12:00-0500 Body temperature 97.9 [degF] MD Yuri Santana Work Phone: [facility] 07-03-2023 12:00-0500 Diastolic blood pressure 71 mm[Hg] MD Yuri Santana Work Phone: [facility] 07-03-2023 12:00-0500 Heart rate 68 /min MD Yuri Santana Work Phone: [facility] 07-03-2023 12:00-0500 Respiratory rate 16 /min MD Yuri Santana Work Phone: [facility] 07-03-2023 12:00-0500 SaO2% (BldA) [Mass fraction] 100 % MD Yuri Santana Work Phone: [facility] 07-03-2023 12:00-0500 Systolic blood pressure 121 mm[Hg] MD Yuri Santana Work Phone: [facility] 07-03-2023 04:49-0500 Body weight 85.8 kg MD Yuri Santana Work Phone: [facility] 06-30-2023 14:44-0500 Body height 157.48 cm MD Yuri Santana Work Phone: [facility] 04-04-2023 16:20-0400 Body height 158.75 cm Raeann Mishras Other [facility] Other 04-04-2023 16:20-0400 Body mass index (BMI) [Ratio] 31.46 kg/m2 Azariel Mishras Other [facility] Other 04-04-2023 16:20-0400 Body temperature 98 [degF] Raeann Mishras Other [facility] Other 04-04-2023 16:20-0400 Body weight 79.29 kg Raeann Mishras Other [facility] Other 04-04-2023 16:20-0400 Diastolic blood pressure 81 mm[Hg] Azariel Mishras Other [facility] Other 04-04-2023 16:20-0400 Respiratory rate 18 /min Raeann Mishras Other [facility] Other 04-04-2023 16:20-0400 SaO2% (BldA) [Mass fraction] 98 % Azariel Harrisonhous Other [facility] Other 04-04-2023 16:20-0400 Systolic blood pressure 133 mm[Hg] Azariel Mishras Other [facility] Other 10-28-2022 22:23-0400 Body temperature 97.4 [degF] MD Yuri Santana Work Phone: [facility] 10-28-2022 22:00-0400 Diastolic blood pressure 74 mm[Hg] MD Yuri Santana Work Phone: [facility] 10-28-2022 22:00-0400 Heart rate 72 /min MD Yuri Santana Work Phone: [facility] 10-28-2022 22:00-0400 Respiratory rate 20 /min MD Yuri Santana Work Phone: [facility] 10-28-2022 22:00-0400 SaO2% (BldA) [Mass fraction] 97 % MD Yuri Santana Work Phone: [facility] 10-28-2022 22:00-0400 Systolic blood pressure 169 mm[Hg] MD Yuri Santana Work Phone: [facility] 10-28-2022 17:54-0400 Body height 157.48 cm MD Yuri Santana Work Phone: [facility] 10-28-2022 17:54-0400 Body weight 83.7 kg MD Yuri Santana Work Phone: [facility] 09-27-2022 12:00-0400 Body height 158.75 cm Raeann Hachimenroppikendalljohnnie Other [facility] Other 09-27-2022 12:00-0400 Body mass index (BMI) [Ratio] 31.78 kg/m2 Vivartesariel [employer] Other [employer] [facility] Other 09-27-2022 12:00-0400 Body temperature 96.1 [degF] Donnieariel [employer] Other [facility] Other 09-27-2022 12:00-0400 Body weight 80.11 kg Vivartesariel Bakhous Other [facility] Other 09-27-2022 12:00-0400 Diastolic blood pressure 82 mm[Hg] Aziz Bakhous Other [facility] Other 09-27-2022 12:00-0400 Respiratory rate 18 /min Aziz Bakhous Other [facility] Other 09-27-2022 12:00-0400 SaO2% (BldA) [Mass fraction] 99 % Aziz Bakhous Other [facility] Other 09-27-2022 12:00-0400 Systolic blood pressure 140 mm[Hg] Aziz Bakhous Other [facility] Other 04-12-2022 14:00-0400 Body height 158.75 cm Aziz Bakhous Other [facility] Other 04-12-2022 14:00-0400 Body mass index (BMI) [Ratio] 30.13 kg/m2 Aziz Bakhous Other [facility] Other 04-12-2022 14:00-0400 Body temperature 97.6 [degF] Aziz Bakhous Other [facility] Other 04-12-2022 14:00-0400 Body weight 75.93 kg Aziz Bakhous Other [facility] Other 04-12-2022 14:00-0400 Diastolic blood pressure 95 mm[Hg] Aziz Bakhous Other [facility] Other 04-12-2022 14:00-0400 Respiratory rate 18 /min Aziz Bakhous Other [facility] Other 04-12-2022 14:00-0400 SaO2% (BldA) [Mass fraction] 98 % Raeann Kirkpatrick Other [facility] Other 04-12-2022 14:00-0400 Systolic blood pressure 175 mm[Hg] Raeann Kirkpatrick Other [facility] Other 06-16-2021 16:20-0500 Body height 158.75 cm Los Grissom Other [facility] Other 06-16-2021 16:20-0500 Body mass index (BMI) [Ratio] 30.88 kg/m2 Los Grissom Other [facility] Other 06-16-2021 16:20-0500 Body temperature 96.4 [degF] Los Grissom Other [facility] Other 06-16-2021 16:20-0500 Body weight 77.84 kg Los Grissom Other [facility] Other 06-16-2021 16:20-0500 Diastolic blood pressure 88 mm[Hg] Los Grissom Other [facility] Other 06-16-2021 16:20-0500 Respiratory rate 18 /min Los Grissom Other [facility] Other 06-16-2021 16:20-0500 SaO2% (BldA) [Mass fraction] 99 % Los Grissom Other [facility] Other 06-16-2021 16:20-0500 Systolic blood pressure 137 mm[Hg] Los Grissom Other [facility] Other Encounters Encounter Date Encounter Type Care Provider Facility Start: 09-09-2024 End: 09-09-2024 ambulatory [facility] Start: 09-09-2024 End: 09-09-2024 ambulatory [facility] Start: 08-08-2024 End: 08-08-2024 ambulatory [facility] Start: 05-31-2024 ambulatory [facility] Start: 04-29-2024 ambulatory [facility] Start: 04-17-2024 ambulatory [facility] Start: 03-27-2024 End: 03-27-2024 ambulatory [facility] Start: 03-26-2024 End: 03-26-2024 ambulatory [facility] Work Phone: Start: 03-26-2024 End: 03-26-2024 Patient encounter procedure [facility] Physician [facility] Work Phone: Start: 03-05-2024 End: 03-05-2024 ambulatory Migel MCKINNEY Facility: [place] Start: 03-05-2024 End: 03-05-2024 Patient encounter procedure Migel MCKINNEY [facility] [place] Start: 01-22-2024 End: 01-30-2024 Evaluation and management of inpatient SAPPHIRE CHAPMAN [facility] Start: 12-21-2023 End: 12-21-2023 ambulatory [facility] Start: 10-13-2023 ambulatory [facility] Start: 09-30-2023 End: 10-01-2023 Evaluation and management of inpatient [facility] Start: 07-11-2023 End: 07-11-2023 ambulatory Aziz Bakhous Other [facility] Other Start: 07-11-2023 Telephone encounter Aziz Bakhous [facility] Start: 06-29-2023 End: 07-03-2023 Evaluation and management of inpatient Jim Randhawa Facility:[facility] Start: 06-29-2023 End: 07-03-2023 Evaluation and management of inpatient MD Yuri Santana Work Phone: [facility] [place] [facility] Work Phone: Start: 04-04-2023 End: 04-04-2023 ambulatory Aziz Bakhous Other [facility] Other Start: 04-04-2023 Office outpatient visit 25 minutes Aziz Bakhous [facility] Start: 04-03-2023 End: 04-03-2023 ambulatory Aziz Bakhous Other [facility] Other Start: 04-03-2023 Telephone encounter Aziz Bakhous [facility] Start: 12-12-2022 End: 12-12-2022 ambulatory Aziz Bakhous Other [facility] Other Start: 12-12-2022 Telephone encounter Aziz Bakhous [facility] Start: 12-08-2022 End: 12-08-2022 ambulatory Aziz Bakhous Other [facility] Other Start: 12-08-2022 Telephone encounter Aziz Bakhous [facility] Start: 11-22-2022 End: 11-22-[address] YURI SANTANA . Facility:[facility] Start: 11-22-2022 End: 11-22-2022 ambulatory SADIE MURILLOSHMIPATHKristen . Facility:[facility] Start: 11-16-2022 End: 11-16-[address] YURI SANTANA . Facility:[facility] Start: 11-04-2022 End: 11-05-2022 ambulatory SADIE DEL CASTILLO . Facility:[facility] Start: 11-03-2022 End: 11-03-[address] YURI SANTANA . Facility:[facility] Start: 10-31-2022 ambulatory SANTOS ONELIA . Facili ty:[facility] Start: 10-28-2022 End: 10-29-2022 Emergency department patient visit Favian Helm Facility:[facility] Start: 10-28-2022 End: 10-28-2022 Emergency department patient visit MD Yuri Santana Work Phone: [facility] Work Phone: Start: 10-27-2022 End: 10-28-2022 ambulatory SADIE DEL CASTILLO . Facility:[facility] Start: 10-25-2022 End: 10-26-2022 Evaluation and management of inpatient DR YURI SANTANA . Facility:[facility] Start: 10-19-2022 End: 10-19-[address] YURI SANTANA . Facility:[facility] Start: 10-12-2022 End: 10-13-[address] YURI SANTANA . Facility:[facility] Start: 10-12-2022 End: 10-12-2022 ambulatory FELECIA MILIAN . Facility:[facility] Start: 10-11-2022 End: 10-11-2022 ambulatory SADIE DEL CASTILLO . Facility:[facility] Start: 10-05-2022 End: 10-07-[address] YURI SANTANA . Facility:[facility] Start: 10-05-2022 ambulatory FELECIA MILIAN . Facility: [facility] Start: 09-29-2022 End: 10-04-[address] YURI SANTANA . Facility:[facility] Start: 09-27-2022 End: 09-27-2022 ambulatory Raeann Kirkpatrick Other [facility] Other Start: 09-27-2022 Office outpatient visit 25 minutes Raeann Kirkpatrick [facility] Start: 09-21-2022 End: 09-22-[address] YURI SANTANA . Facility:[facility] Start: 09-20-2022 End: 09-21-2022 ambulatory SADIE PHOENIXKEONCONSTANTINO . Facility:[facility] Start: 09-19-2022 End: 09-20-[address] YURI SANTANA . Facility:[facility] Start: 09-19-2022 End: 09-20-2022 ambulatory RAEANN KIRKPATRICK Facility:[facility] Start: 08-24-2022 End: 09-12-[address] YURI SANTANA . Facility:[facility] Start: 08-23-2022 End: 08-23-2022 ambulatory Sue Leiva Other [facility] Other Start: 08-23-2022 Office outpatient ne w 30 minutes Sue Leiva [facility] Start: 08-16-2022 End: 08-17-[address] YURI SANTANA . Facility:[facility] Start: 08-06-2022 End: 08-06-2022 ambulatory NIKKIE DIAB . Facility:[facility] Start: 07-27-2022 End: 07-28-[address] YURI SANTANA . Facility:[facility] Start: 07-27-2022 End: 08-16-[address] YURI SANTANA . Facility:[facility] Start: 06-29-2022 End: 07-21-[address] YURI SANTANA . Facility:[facility] Start: 06-16-2022 End: 06-18-2022 Evaluation and management of inpatient DR YURI SANTANA . Facility:[facility] Start: 06-07-2022 End: 06-08-[address] YURI SANTANA . Facility:[facility] Start: 05-26-2022 End: 06-13-[address] YURI SANTANA . Facility:[facility] Start: 05-17-2022 End: 05-18-[address] YURI SANTANA . Facility:[facility] Start: 05-03-2022 End: 05-04-[address] YURI SANTANA . Facility:[facility] Start: 04-28-2022 End: 04-29-[address] YURI SANTANA . Facility:[facility] Start: 04-28-2022 End: 05-17-[address] YURI SANTANA . Facility:[facility] Start: 04-12-2022 End: 04-12-2022 ambulatory Raeann Harrisoncristin Other [facility] Other Start: 04-12-2022 Office outpatient visit 25 minutes Raeann Harrisoncristin [facility] [place] Start: 04-06-[address] YURI SANTANA . Facili ty:[facility] Start: 03-31-2022 End: 04-20-[address] YURI SANTANA . Facility:[facility] Start: 03-03-2022 End: 03-22-[address] YURI SANTANA . Facility:[facility] Start: 01-27-2022 End: 01-28-[address] YURI SANTANA . Facility:[facility] Start: 01-27-2022 End: 02-22-[address] YURI SANTANA . Facility:[facility] Start: 01-19-2022 End: 01-20-2022 ambulatory ROBERT JOHNSTON Facility:[facility] Start: 01-11-2022 End: 01-11-[address] YURI SANTANA . Facility:[facility] Start: 01-10-2022 End: 01-11-2022 ambulatory Robert Johnston Facility:[facility] Start: 01-06-2022 End: 01-07-[address] YURI SANTANA . Facility:[facility] Start: 12-30-2021 End: 01-19-[address] YURI SANTANA . Facility:[facility] Start: 12-23-2021 End: 12-24-2021 ambulatory NNAMDI DEJESUS . Facility:[facility] Start: 12-07-2021 End: 12-22-[address] YURI SANTANA . Facility:[facility] Start: 12-07-2021 End: 12-07-[address] YURI SANTANA . Facility:[facility] Start: 08-19-2021 End: 08-20-2021 ambulatory CARLOS REZA Facility:[facility] Start: 06-16-2021 End: 06-16-2021 ambulatory Los Grissom Other [facility] Other Start: 06-16-2021 Office outpatient visit 25 minutes Los Grissom [facility] Start: 01-14-2019 End: 01-14-2019 Patient encounter procedure [facility] Start: 12-03-2018 End: 12-03-2018 Patient encounter procedure [facility] Procedures Date Procedure Procedure Detail Performing Clinician Start: 10-28-2022 CT of head without contrast MD Yuri Santana Work Phone: Start: 10-28-2022 Plain chest X-ray MD Romero Work Phone: Start: 09-24-2022 Insertion of implant able venous access port Migel NILL Start: 01-14-2019 DISCHARGE PATIENT NIRMAL Start: 01-14-2019 [...] CONSENT NIRMAL Start: 12-03-2018 VITAL SIGNS NIRMAL Start: 06-26-2016 Insertion of implant able venous access port Migel NILL Start: 06-26-1999 Vikki-en-Y - action ( qualifier value) Migel NILL Arthroplasty of knee Migel NILL Cardiac catheterization Jorge dubon NILL Cervical arthrodesis Migel NILL Cervical laminectomy Migel NILL Cholecystectomy Migel NILL Removal of implantab le venous access port Migel AHUMADAL Repair of musculoten dinous cuff of shoulder Migel AHUMADAL Plan of Treatment Date Care Activity Detail Author Start: 07-03-2023 [facility] Start: 06-29-2023 Hospital admission [facility] Start: 06-29-2023 Referral to suction worker [facility] Blood chemistry [facility] Patient Education [facility] Work Phone: Patient referral [facility] Work Phone: Renal function 2000 panel - Serum or Plasma [facility] Immunizations Immunization Date Immunization Notes Care Provider Fa cility 03-11-2023 influenza virus vaccine, unspecified formulation Migel AHUMADAL [facility] 04-07-2022 SARS-CoV-2 (COVID-19 ) mRNAMUL.[id number] Migel MCKINNEY [facility] 09-24-2020 SARS-CoV-2 (COVID-19 ) mRNA-1273 vaccine Migel AHUMADAL [facility] Comment on above: Result Comment: 2023: [id number] 08-27-2020 SARS-CoV-2 (COVID-19 ) mRNA-1273 vaccine Migel AHUMADAL [facility] 05-18-2011 pneumococcal conjuga te vaccine, 13 valent Migel AHUMADAL [facility] NEGATED: Highlighted row has not occurred!09-16-2020 influenza virus vaccine, unspecified formulation Migel AHUMADAL [facility] Payers Date Payer Category Payer Medicare [id number] 2022 [facility]-pay [id number] 2017 Medicare [id number] 2017 Unknown [id number] 1960 Unknown [id number] 2.16.8 40.1.818106.3.579.2.173 1962 Unknown [id number] 2.16.8 40.1.714146.3.579.2.173 1962 Unknown [id number] 2.16.8 40.1.785223.3.579.2.647 1960 Unknown [id number] 2.16.8 40.1.632425.3.579.2.647 1960 Unknown [id number] 2.16.84 0.1.755161.3.579.2.593 1962 Unknown [id number] 2.16.84 0.1.570252.3.579.2.593 1962 Unknown [id number] 2.16.84 0.1.719505.3.579.2.593 1962 Unknown [id number] 2.16.84 0.1.934901.3.579.2.593 1962 Unknown [id number] 2.16.84 0.1.467551.3.579.2.593 1962 Unknown [id number] 2.16.84 0.1.463848.3.579.2.593 1962 Unknown [id number] 2.16.84 0.1.187426.3.579.2.593 1962 Unknown [id number] 2.16.84 0.1.366537.3.579.2.593 1962 Unknown [id number] 2.16.84 0.1.089172.3.579.2.593 1962 Unknown [id number] 2.16.84 0.1.063581.3.579.2.593 1962 Unknown [id number] 2.16.84 0.1.932928.3.579.2.593 1962 Unknown [id number] 2.16.84 0.1.022757.3.579.2.593 1962 Unknown [id number] 2.16.84 0.1.359300.3.579.2.593 1962 Unknown [id number] 2.16.84 0.1.321048.3.579.2.593 1962 Unknown [id number] 2.16.84 0.1.682431.3.579.2.593 1962 Unknown [id number] 2.16.84 0.1.852355.3.579.2.593 1962 Unknown [id number] 2.16.84 0.1.962442.3.579.2.593 1962 Unknown [id number] 2.16.84 0.1.599958.3.579.2.593 1962 Unknown [id number] 2.16.84 0.1.541401.3.579.2.593 1962 Unknown [id number] 2.16.84 0.1.670664.3.579.2.593 1962 Unknown [id number] 2.16.84 0.1.289218.3.579.2.593 1962 Unknown [id number] 2.16.84 0.1.793726.3.579.2.593 1962 Unknown [id number] 2.16.84 0.1.142979.3.579.2.593 1962 Unknown [id number] 2.16.84 0.1.995104.3.579.2.593 1962 Unknown [id number] 2.16.84 0.1.336309.3.579.2.593 1962 Unknown [id number] 2.16.84 0.1.922776.3.579.2.593 1962 Unknown [id number] 2.16.84 0.1.531742.3.579.2.593 1962 Unknown [id number] 2.16.84 0.1.210320.3.579.2.593 1962 Unknown [id number] 2.16.84 0.1.698813.3.579.2.593 1962 Unknown [id number] 2.16.84 0.1.415681.3.579.2.593 1962 Unknown [id number] 2.16.84 0.1.826798.3.579.2.593 1962 Unknown [id number] 2.16.84 0.1.971964.3.579.2.593 1962 Unknown [id number] 2.16.84 0.1.258370.3.579.2.593 1962 Unknown [id number] 2.16.84 0.1.407988.3.579.2.593 1962 Unknown [id number] 2.16.84 0.1.157044.3.579.2.593 1962 Unknown [id number] 2.16.84 0.1.833988.3.579.2.593 1962 Unknown [id number] 2.16.84 0.1.063995.3.579.2.593 1962 Unknown [id number] 2.16.84 0.1.308100.3.579.2.593 1962 Unknown [id number] 2.16.84 0.1.892870.3.579.2.593 1962 Unknown [id number] 2.16.84 0.1.244220.3.579.2.593 1962 Unknown [id number] 2.16.84 0.1.569015.3.579.2.593 1962 Unknown [id number] 2.16.84 0.1.894718.3.579.2.593 1962 Unknown [id number] 2.16.84 0.1.122799.3.579.2.593 1962 Unknown [id number] 2.16.84 0.1.853165.3.579.2.593 1962 Unknown [id number] 2.16.84 0.1.301042.3.579.2.593 1962 Unknown [id number] 2.16.84 0.1.020628.3.579.2.593 1962 Unknown [id number] 2.16.8 40.1.702187.3.579.2.1286 1962 Unknown [id number] 2.16.8 40.1.172853.3.579.2.727 1962 Unknown [id number] 2.16. 840.1.962529.3.579.2.175 1962 Unknown [id number] 2.16. 840.1.644222.3.579.2.175 1962 Unknown [id number] 2.16.8 40.1.302553.3.579.2.1286 1962 Unknown [id number] 2.16.8 40.1.043460.3.579.2.1286 1962 Unknown [id number] 2.16.8 40.1.941196.3.579.2.1286 1962 Unknown [id number] 2.16.8 40.1.622882.3.579.2.1286 1959 Medicaid [id number] Unknown [id number] 2.1 6.840.1.579580.19 Unknown [place] [id number] Unknown [id number] 2.16.8 40.1.469247.3.579.2.531 Unknown [id number] 2.16.8 40.1.902619.3.579.2.531 Social History Date Type Detail Facility Unknown if ever smoked [facility] Other Sex Assigned At [facility] Start: 10-28-2022 End: 03-26-2024 Tobacco smoking status NHIS Never smoked tobacco (finding) [facility] Start: 1960 Sex Assigned At Female F [facility] Tobacco smoking status Never Fishe [facility] Goals Date Patient Goal Desired Activity /State Functional Status Date Assessment Result Facility 03-05-2024 Functional Status N/A [facility] 07-03-2023 Functional status Patient at Baseline [facility] Work Phone: Mental Status Date Assessment Result Facility 07-03-2023 Cognitive function Cognitive Sta tus Patient at Baseline [facility] Work Phone: Clinical Notes 06-16-2021 to 03-27-2024 Note Date & Type Note Facility 03-27-2024 Note [facility] Subjective Mabel Msoer is a 64 y.o. year old female patient being seen for 3 mo follow up HFpEF, hypertension, and mild pulmonary hypertension. She was admitted last month to [facility] for CHF and fluid overload. She was diagnosed with DVT and Eliquis was increased to 5mg bid. She's using lymphedema pumps 2-[address] Santana gave her RX of spironolactone 200mg bid x3 days. She took first dose this morning. Denies chest pain, palpitations, and lightheadedness. C/o worsening JO. Patient Active Problem List Diagnosis Abnormal weight loss Acute sinusitis Amnesia Anxiety Other specified anxiety disorders Mitral valve regurgitation Pulmonic valve regurgitation Aortic valve regurgitation Arthritis of right knee Benign essential hypertension Bilateral hearing loss Chronic obstructive pulmonary disease (CMS/HCC) CKD (chronic kidney disease) stage 3, GFR 30-59 ml/min ([facility]) Closed fracture of trochanter of femur ([facility]) Clostridium difficile colitis Coronary arteriosclerosis Diffuse thyroid 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 thyrotoxicosis Fluid overload Dehydration Cortical age-related cataract of left eye COVID-19 Displacement of lumbar intervertebral disc without myelopathy Edema of lower extremity Edema Orthopnea Dyspnea Endogenous obesity Essential tremor ACC/AHA stage C heart failure with preserved ejection fraction ([facility]) H/O gastric bypass Gouty arthropathy Gastroesophageal reflux disease Full thickness rotator cuff tear Fibromyalgia Low back pain Hip pain Hyperparathyroidism due to renal insufficiency ([facility]) Hypocalcemia Hypertensive disorder Hypoglycemia Hyponatremia Hypothyroidism Impingement syndrome of shoulder region Insomnia Anemia due to vitamin B12 deficiency Pulmonary hypertension ([facility]) Other fatigue Osteoarthritis of knee Morbid (severe) obesity due to excess calories ([facility]) Left atrial enlargement Lumbosacral neuritis Lumbosacral spondylosis without myelopathy Intractable migraine without status migrainosus Migraine Rheumatic tricuspid valve regurgitation Vitamin D deficiency Tympanic membrane perforation, right Transient ischemic attack Thoracic neuritis Tear of right rotator cuff Swallowing problem Sunburn of second degree Status post tympanoplasty Sprain of shoulder Seizure disorder ([facility]) Polyneuropathy associated with critical illness ([facility]) Polyneuropathy Osteoarthritis of spine with radiculopathy, lumbar region Obesity (BMI 30.0-34.9) Lumbar paraspinal muscle spasm Lateral femoral cutaneous neuropathy, left Internal derangement of right shoulder History of total right knee replacement Hemiparesis, left ([facility]) Hemiparesis due to old stroke ([facility]) Difficulty walking Depression Constipation Abnormal blood chemistry 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 ([facility]) Pre-operative cardiovascular examination Acute on chronic systolic CHF (congestive heart failure) ([facility]) History of CVA in adulthood Hyperkalemia Hypomagnesemia Metabolic acidosis LEEANN (acute kidney injury) ([facility]) Cardiorenal disease Acute heart failure ([facility]) Polypharmacy Cerebral artery occlusion with cerebral infarction ([facility]) Chronic CHF (congestive heart failure) ([facility]) Fall at home, initial encounter Irritable bowel syndrome Restless leg syndrome Traumatic closed fracture of C2 vertebra with minimal displacement, initial encounter ([facility]) Cervical stenosis of spine Compression fracture of C2 vertebra with delayed healing History of Clostridium difficile colitis History of DVT of lower extremity Lymphedema MDD (major depressive disorder), recurrent episode, moderate (CMS/HCC) Mild neurocognitive disorder Osteoporosis Peripheral venous insufficiency Poor venous access S/P cervical spinal fusion Simple goiter Syncope Vertebral artery dissection (CMS/HCC) Family History Family history unknown: Yes Social History Tobacco Use Smoking status: Never Smokeless tobacco: Never Substance Use Topics Alcohol use: Not Currently Drug use: Not Currently HPI Mabel is seen in follow-up. She is a 64-year-old woman with prior history of obesity status post bariatric surgery in 1999. In the past she was admitted to [facility] in 2019 with fluid overload and [...] headache and echocardiogram had shown severely elevated r (more content not included)... [facility] 03-05-2024 Note General Surgery Offi ce/Clinic Note Chief Complaint consultation for nonhealing skin abrasion HPI Staff 64 year old female presents on consultation from Dr. Santana for nonhealing skin abrasion to right mid abdomen. Reports several months ago, she received an abrasion to abdomen from removal of EKG pad. Area is scabbed but has not healed completely. On Eliquis for history of DVT. History of Present Illness 64 yo female with multiple medical problems, including ESRD, DVT, on Eliquis, referred for nonhealing wound right lower abd wall; patient reports it started several months ago after EKG pad was pulled off area; open and sore, now is healing, in skin fold, no drainage currently. Review of Systems PHQ Score Initial Depression Screen Score: 0 SCORE ROS - Provider Constitutional: no fever, no sweats, no weight loss. Eyes: no glasses, no blurred vision, no visual loss. ENMT: no dentures, no hoarseness, no swallowing difficulties, no hearing loss, no ear infection(s), no nose bleeds. Cardiovascular: normal blood pressure, no chest pain, regular heartbeat, no heart murmur. Respiratory: no shortness of breath, no cough, no asthma, no wheezing. Gastrointestinal: no nausea, no vomiting, no diarrhea, no constipation, no blood in stool, no change in bowel habits, no abdominal pain, no hepatitis. Genitourinary: no kidney stones, no urine infection, no dysuria. Musculoskeletal: no pain, no weakness. Skin: no changing moles, no rash, no skin lumps. Neurologic: no seizures, no epilepsy, no headache. Psychiatric: no emotional or psychiatric problem. Heme/Lymph: no bleeding problems, no anemia, no blood clots, no transfusions. Allergy/Immunologic: no swollen lymph nodes/glands, no IV drug abuse. Other: Additional ROS info: Except as noted in the above Review of Systems and in the History of Present Illness, all other systems have been reviewed and are negative or noncontributory. Physical Exam Vitals & Measurements HR: 77(Peripheral) RR: 16 BP: 116/80 HT: 62 in HT: 157.4 cm WT: 94.5 kg WT: 207.9 lb BMI: 38.14 abd: obese soft, RLQ in area of skin fold, 2 cm area of scar, no open areas, no fluctuance or cellulitis, no drainage. Assessment/Plan 1. Abrasion of abdominal wall, sequela (S30.811S: Abrasion of abdominal wall, sequela) healing now; avoid rubbing to area and moisture; keep area clean and dry; no evidence of cyst or abscess; call with problems/questions. Follow-up No qualifying data available Problem List/Past Medical History Ongoing Abdominal wall skin ulcer Anemia Anxiety Aortic valve regurgitation Benign essential hypertension Bilateral hearing loss BMI 38.0-38.9,adult Cardiomegaly Cervical stenosis of spine Chronic congestive heart failure Chronic kidney disease stage 3 Class 3 obesity Coronary arteriosclerosis Depressive disorder Edema of lower extremity Essential hypertension Essential tremor. Fibromyalgia Flaccid hemiplegia of right dominant side Gastroesophageal reflux disease Gouty arthropathy History of Clostridium difficile colitis History of DVT of lower extremity Hyperparathyroidism Hypothyroidism Insomnia Irritable bowel syndrome Left atrial enlargement Lumbosacral radiculopathy Lymphedema Migraine Mild neurocognitive disorder Mitral valve regurgitation Neurogenic claudication Occlusion of cerebral artery with stroke. Osteoporosis Peripheral venous insufficiency Polyneuropathy Poor venous access Pulmonary hypertension Pulmonic valve regurgitation Restless legs Severe tricuspid valve regurgitation Simple goiter Spinal stenosis of lumbar region Vascular insufficiency Vitamin D deficiency Historical No qualifying data Procedure/Surgical History Insertion of implantable venous access port (09/2022), Insertion of implantable venous access port (06/26/2016), Vikki-en-Y (06/26/1999), Cardiac catheterization, Cervical laminectomy, Cervical spinal fusion, Cholecystectomy, Knee replacement, Removal of implantable venous access port, Repair of rotator cuff of shoulder. Medications alprazolam 0.5 mg Tab, 0.5 mg= 1 tab(s), Oral, BID, PRN amitriptyline 150 mg Tab, 300 mg= 2 tab(s), Oral, Once a day (at bedtime) aspirin 81 mg Chew Tab, 81 mg= 1 tab(s), Chewed, Daily atorvastatin 40 mg Tab, 40 mg= 1 tab(s), Oral, Daily Breo Ellipta 100 mcg-25 mcg inhalation powder, 1 puff(s), Inhalation, Daily bumetanide 2 mg Tab, 2 mg= 1 tab(s), Oral, BID butorphanol 10 mg/mL Nasal [place], 1 spray(s), Nasal, Daily, PRN cyanocobalamin 1000 mcg/mL Inj, 1000 mcg, IntraMuscular, qMonth Cytomel 25 mcg Tab, 25 mcg= 1 tab(s), Oral, Daily desvenlafaxine 50 mg Tab-, 50 mg= 1 tab(s), Oral, Daily doxepin 10 mg Cap, 1-2 caps, Oral, Once a day (at bedtime) Duragesic-100 transdermal film, extended release, 1 patch(es), Topical, q72hr Eliquis 5 mg oral tablet, 5 mg= 1 tab(s), Oral, BID Entresto 97 mg-103 mg oral tablet, 1 tab(s), Oral, BID Fioricet or (more content not included)... [facility] Comment on above: Result Comment: Elec tronically Signed By: FAYE ASCENCIO, Migel Cruz\Date and Time Signed: 03/05/24 14:27 EDT 12-21-2023 Note [place] [facility] Subjective Mabel Moser is a 63 y.o. [...] Bilateral hearing loss Chronic obstructive pulmonary disease ([facility]) CKD (chronic kidney disease) stage 3, GFR 30-59 ml/min ([facility]) Closed fracture of trochanter of femur ([facility]) Clostridium difficile colitis Coronary arteriosclerosis Diffuse thyroid 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 thyrotoxicosis Fluid overload Dehydration Cortical age-related cataract of left eye COVID-19 Displacement of lumbar intervertebral disc without myelopathy Edema of lower extremity Edema Orthopnea Dyspnea Endogenous obesity Essential tremor ACC/AHA stage C heart failure with preserved ejection fraction ([facility]) H/O gastric bypass Gouty arthropathy Gastroesophageal reflux disease Full thickness rotator cuff tear Fibromyalgia Low back pain Hip pain Hyperparathyroidism due to renal insufficiency ([facility]) Hypocalcemia Hypertensive disorder Hypoglycemia Hyponatremia Hypothyroidism Impingement syndrome of shoulder region Insomnia Anemia due to vitamin B12 deficiency Pulmonary hypertension ([facility]) Other fatigue Osteoarthritis of knee Morbid (severe) obesity due to excess calories ([facility]) Left atrial enlargement Lumbosacral neuritis Lumbosacral spondylosis without myelopathy Intractable migraine without status migrainosus Migraine Rheumatic tricuspid valve regurgitation Vitamin D deficiency Tympanic membrane perforation, right Transient ischemic attack Thoracic neuritis Tear of right rotator cuff Swallowing problem Sunburn of second degree Status post tympanoplasty Sprain of shoulder Seizure disorder ([facility]) Polyneuropathy associated with critical illness ([facility]) Polyneuropathy Osteoarthritis of spine with radiculopathy, lumbar region Obesity (BMI 30.0-34.9) Lumbar paraspinal muscle spasm Lateral femoral cutaneous neuropathy, left Internal derangement of right shoulder History of total right knee replacement Hemiparesis, left ([facility]) Hemiparesis due to old stroke ([facility]) Difficulty walking Depression Constipation Abnormal blood chemistry 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 ([facility]) Pre-operative cardiovascular examination Acute on chronic systolic CHF (congestive heart failure) ([facility]) History of CVA in adulthood Hyperkalemia Hypomagnesemia Metabolic acidosis LEEANN (acute kidney injury) ([facility]) Cardiorenal disease Acute heart failure (CMS/HCC) Polypharmacy Cerebral artery occlusion with cerebral infarction (CMS/HCC) Chronic CHF (congestive heart failure) (CMS/HCC) Fall at home, initial encounter Irritable bowel syndrome Restless leg syndrome Traumatic closed fracture of C2 vertebra with minimal displacement, initial encounter ([facility]) Family History Family history unknown: Yes Social History Tobacco Use Smoking status: Never Smokeless tobacco: Never Substance Use Topics Alcohol use: Not Currently Drug use: Not Currently HPI Mabel is seen in follow-up. She is a 63-year-old woman with prior history of obesity status post bariatric surgery in 1999. In the past she was admitted to [facility] in 2019 with fluid overload and [...] recommended to t (more content not included)... [facility] 07-03-2023 Progress note Note Date/Time July 03, 2023 12:18pm [facility] [address] [place] [address] Nephrology Progress Note Signed Patient: Mabel Moser MR#: [id number] : 1960 Acct:[id number] Age/Sex: 63 / F Adm Date: 4 Loc: 3T Room: [address] [place] [address] Type: ADM IN Attending Dr: Jim Randhawa [...] Total 1175 / 1175 1620 / 1620 [id number] 500 / 500 Balance 1175 / 1175 [...] Mg Tablet) 150 mg PO QHS [facility] Stop: 06/29/24 21:59 Last Admin: 07/02/23 21:00 Dose: 150 mg Aripiprazole (Aripiprazole 2 Mg Tablet) 2 mg PO DAILY [facility] Stop: 06/29/24 08:59 Last Admin: 07/03/23 08:13 Dose: 2 mg Bisacodyl (Bisacodyl 5 Mg Tablet.) 10 mg PO DAILY PRN PRN Reason: Constipation Stop: 06/28/24 21:34 Bumetanide (Bumetanide 1 Mg/4 Ml Vial) 1 mg IV-PUSH BID@0800,1600 [facility] Stop: 06/29/24 07:59 Last Admin: 07/03/23 08:14 Dose: 1 mg Calcium Acetate (Calcium Acetate 667 Mg Capsule) 667 mg PO BID.WITH.MEALS [facility] Stop: 06/29/24 07:59 Last Admin: 07/03/23 08:13 Dose: 667 mg Duloxetine HCl (Duloxetine 60 Mg Capsule.) 120 mg PO DAILY [facility] Stop: 06/29/24 08:59 Last Admin: 07/03/23 08:13 Dose: 120 mg Fentanyl (Fentanyl Patch 100 Mcg/Hour Patch.Td72) 100 mcg TRANSDERML Q72H [facility]; Protocol Last Admin: 07/03/23 08:12 Dose: 100 mcg Ferrous Sulfate (Ferrous Sulfate 324 Mg Tablet.) 324 mg PO DAILY [facility] Stop: 06/29/24 08:59 Last Admin: 07/03/23 08:13 Dose: 324 mg Gabapentin (Gabapentin 100 Mg Capsule) 100 mg PO TID [facility] Stop: 06/29/24 08:59 Last Admin: 07/03/23 08:13 Dose: 100 mg Guaifenesin/Dextromethorphan (Guaif/Dextromethorphan Syrup 10 Ml Udc) 10 ml PO Q8H PRN PRN Reason: Cough Stop: 06/28/24 21:34 Heparin Sodium (Porcine) (Heparin 5,000 Unit/Ml Vial) 5,000 unit SUBCUT Q12HR [facility] Stop: 06/29/24 08:59 Last Admin: 07/03/23 08:14 Dose: 5,000 unit Levothyroxine Sodium (Levothyroxine 100 Mcg Tablet) 100 mcg PO DAILY@0630 [facility] Stop: 06/29/24 06:29 Last Admin: 07/03/23 06:23 Dose: 100 mcg Linaclotide (Linaclotide 290 Mcg Capsule) 290 mcg PO Q48HR [facility] Stop: 06/29/24 08:59 Last Admin: 07/02/23 08:59 Dose: 290 mcg Liothyronine Sodium (Liothyronine 25 Mcg Tablet) 25 mcg PO DAILY@0630 [facility] Stop: 06/29/24 10:59 Last Admin: 07/03/23 06:23 Dose: 25 mcg Loratadine (Loratadine 10 Mg Tablet) 10 mg PO DAILY PRN PRN Reason: Allergy Symptoms Stop: 06/29/24 06:54 Melatonin (Melatonin 5 Mg Tablet) 5 mg PO QHS PRN PRN Reason: Insomnia Stop: 06/28/24 21:34 Metoprolol Tartrate (Metoprolol Tartrate 25 Mg Tablet) 25 mg PO BID [facility] Stop: 06/29/24 20:59 Last Admin: 07/03/23 [...] signed by Raeann Kirkpatrick MD> 07/03/23 1218 [facility] Work Phone: 1(501) 840-237601-07-2024 Progress note Author Jim Randhawa [facility] July 02, 2023 11:26am Note Date/Time July 02, 2023 11 :26am [facility] [address] [place] [address] Hospitalist Progress Note Signed Patient: Mabel Moser MR#: [id number] : 1960 Acct:[id number] Age/Sex: 63 / F Adm Date: 4 Loc: 3T Room: [address] [place] [address] Type: ADM IN Attending Dr: Jim Randhawa [...] signed by Jim Randhawa DO> 07/02/23 1126 [facility] Work Phone: 1(714) 807-856501-07-2024 Progress note Author Los Grissom [facility] July 02, 2023 10:42am Note Date/Time July 02, 2023 10 :42am [facility] [address] [place] [address] Nephrology Progress Note Signed Patient: Mabel Moser MR#: [id number] : 1960 Acct:[id number] Age/Sex: 63 / F Adm Date: 4 Loc: 3T Room: [address] [place] [address] Type: ADM IN Attending Dr: Jim Randhawa [...] Mg Tablet) 150 mg PO QHS [facility] Stop: 06/29/24 21:59 Last Admin: 07/01/23 21:21 Dose: 150 mg Aripiprazole (Aripiprazole 2 Mg Tablet) 2 mg PO DAILY [facility] Stop: 06/29/24 08:59 Last Admin: 07/02/23 08:55 Dose: 2 mg Bisacodyl (Bisacodyl 5 Mg Tablet.Dr) 10 mg PO DAILY PRN PRN Reason: Constipation Stop: 06/28/24 21:34 Bumetanide (Bumetanide 1 Mg/4 Ml Vial) 1 mg IV-PUSH BID@0800,1600 [facility] Stop: 06/29/24 07:59 Last Admin: 07/02/23 08:55 Dose: 1 mg Calcium Acetate (Calcium Acetate 667 Mg Capsule) 667 mg PO BID.WITH.MEALS [facility] Stop: 06/29/24 07:59 Last Admin: 07/02/23 08:55 Dose: 667 mg Duloxetine HCl (Duloxetine 60 Mg Capsule.Dr) 120 mg PO DAILY [facility] Stop: 06/29/24 08:59 Last Admin: 07/02/23 08:59 Dose: 120 mg Fentanyl (Fentanyl Patch 100 Mcg/Hour Patch.Td72) 100 mcg TRANSDERML Q72H [facility]; Protocol Last Admin: 06/30/23 09:31 Dose: 100 mcg Ferrous Sulfate (Ferrous Sulfate 324 Mg Tablet.) 324 mg PO DAILY [facility] Stop: 06/29/24 08:59 Last Admin: 07/02/23 08:55 Dose: 324 mg Gabapentin (Gabapentin 100 Mg Capsule) 100 mg PO TID [facility] Stop: 06/29/24 08:59 Last Admin: 07/02/23 08:55 Dose: 100 mg Guaifenesin/Dextromethorphan (Guaif/Dextromethorphan Syrup 10 Ml Udc) 10 ml PO Q8H PRN PRN Reason: Cough Stop: 06/28/24 21:34 Heparin Sodium (Porcine) (Heparin 5,000 Unit/Ml Vial) 5,000 unit SUBCUT Q12HR [facility] Stop: 06/29/24 08:59 Last Admin: 07/02/23 08:55 Dose: 5,000 unit Levothyroxine Sodium (Levothyroxine 100 Mcg Tablet) 100 mcg PO DAILY@0630 [facility] Stop: 06/29/24 06:29 Last Admin: 07/02/23 05:48 Dose: 100 mcg Linaclotide (Linaclotide 290 Mcg Capsule) 290 mcg PO Q48HR [facility] Stop: 06/29/24 08:59 Last Admin: 07/02/23 08:59 Dose: 290 mcg Liothyronine Sodium (Liothyronine 25 Mcg Tablet) 25 mcg PO DAILY@0630 [facility] Stop: 06/29/24 10:59 Last Admin: 07/02/23 05:48 Dose: 25 mcg Loratadine (Loratadine 10 Mg Tablet) 10 mg PO DAILY PRN PRN Reason: Allergy Symptoms Stop: 06/29/24 06:54 Melatonin (Melatonin 5 Mg Tablet) 5 mg PO QHS PRN PRN Reason: Insomnia Stop: 06/28/24 21:34 Metoprolol Tartrate (Metoprolol Tartrate 25 Mg Tablet) 25 mg PO BID [facility] Stop: 06/29/24 20:59 Last Admin: 07/02/23 08:55 Dose: 25 mg Ondansetron HCl (Ondansetron 4 Mg/2 Ml Vial) 4 mg IV-PUSH Q8H PRN PRN Reason: Nausea And Vomiting Stop: 06/28/24 21:34 Oxycodone/Acetaminophen (Oxycodone/Acetaminophen 5-325 Mg Tablet) 2 tab PO Q6H PRN PRN Reason: Pain Last Admin: 07/02/23 02:00 Dose: 2 tab Pantoprazole Sodium (Pantoprazole 40 Mg Tablet.Dr) 40 mg PO BID [facility] Stop: 06/29/24 08:59 Last Admin: 07/02/23 08:55 Dose: 40 mg Primidone (Primidone 50 Mg Tablet) 100 mg PO HS [facility] Stop: 06/29/24 21:59 Last Admin: 07/01/23 21:21 Dose: 100 mg Sevelamer Carbonate (Sevelamer Carbonate 800 Mg Tablet) 800 mg PO TID.WITH.MEALS [facility] Stop: 06/29/24 11:59 Last Admin: 07/02/23 [...] into a diagnostic report(s) for Mabel Haynes Larobert. I have reviewed the report(s) and am [...] by MD Los Grissom> 07/02/23 1042 [facility] Work Phone: 1(830) 448-736301-06-2024 Progress note Author Jim Randhawa [facility] July 01, 2023 1:52pm Note Date/Time July 01, 2023 1: 37pm [facility] [address] [place] [address] Hospitalist Progress Note Signed Patient: Mabel Moser MR#: [id number] : 1960 Acct:[id number] Age/Sex: 63 / F Adm Date: 4 Loc: Room: [address] [place] [address] Type: ADM IN Attending Dr: Jim Randhawa [...] signed by Jim Randhawa DO> 07/01/23 1352 [facility] Work Phone: [phone]) 983-123701-06-2024 Progress note Author [facility] July 01, 2023 10:16am Note Date/Time July 01, 2023 10 :16am [facility] [address] [place] [address] Nephrology Progress Note Signed Patient: Mabel Moser MR#: [id number] : 1960 Acct:[id number] Age/Sex: 63 / F Adm Date: 4 Loc: 3T Room: [address] [place] [address] Type: ADM IN Attending Dr: Jim Randhawa [...] Mg Tablet) 150 mg PO QHS [facility] Stop: 06/29/24 21:59 Last Admin: 06/30/23 21:17 Dose: 150 mg Aripiprazole (Aripiprazole 2 Mg Tablet) 2 mg PO DAILY [facility] Stop: 06/29/24 08:59 Last Admin: 07/01/23 08:21 Dose: 2 mg Bisacodyl (Bisacodyl 5 Mg Tablet.) 10 mg PO DAILY PRN PRN Reason: Constipation Stop: 06/28/24 21:34 Bumetanide (Bumetanide 1 Mg/4 Ml Vial) 1 mg IV-PUSH BID@0800,1600 [facility] Stop: 06/29/24 07:59 Last Admin: 07/01/23 08:21 Dose: 1 mg Calcium Acetate (Calcium Acetate 667 Mg Capsule) 667 mg PO BID.WITH.MEALS [facility] Stop: 06/29/24 07:59 Last Admin: 07/01/23 08:20 Dose: 667 mg Duloxetine HCl (Duloxetine 60 Mg Capsule.) 120 mg PO DAILY [facility] Stop: 06/29/24 08:59 Last Admin: 07/01/23 08:20 Dose: 120 mg Fentanyl (Fentanyl Patch 100 Mcg/Hour Patch.Td72) 100 mcg TRANSDERML Q72H [facility]; Protocol Last Admin: 06/30/23 09:31 Dose: 100 mcg Ferrous Sulfate (Ferrous Sulfate 324 Mg Tablet.) 324 mg PO DAILY [facility] Stop: 06/29/24 08:59 Last Admin: 07/01/23 08:20 Dose: 324 mg Gabapentin (Gabapentin 100 Mg Capsule) 100 mg PO TID [facility] Stop: 06/29/24 08:59 Last Admin: 07/01/23 08:20 Dose: 100 mg Guaifenesin/Dextromethorphan (Guaif/Dextromethorphan Syrup 10 Ml Udc) 10 ml PO Q8H PRN PRN Reason: Cough Stop: 06/28/24 21:34 Heparin Sodium (Porcine) (Heparin 5,000 Unit/Ml Vial) 5,000 unit SUBCUT Q12HR [facility] Stop: 06/29/24 08:59 Last Admin: 07/01/23 08:21 Dose: 5,000 unit Levothyroxine Sodium (Levothyroxine 100 Mcg Tablet) 100 mcg PO DAILY@30 [facility] Stop: 06/29/24 06:29 Last Admin: 07/01/23 05:46 Dose: 100 mcg Linaclotide (Linaclotide 290 Mcg Capsule) 290 mcg PO Q48HR [facility] Stop: 06/29/24 08:59 Last Admin: 06/30/23 09:33 Dose: 290 mcg Liothyronine Sodium (Liothyronine 25 Mcg Tablet) 25 mcg PO DAILY@30 [facility] Stop: 06/29/24 10:59 Last Admin: 07/01/23 05:46 Dose: 25 mcg Loratadine (Loratadine 10 Mg Tablet) 10 mg PO DAILY PRN PRN Reason: Allergy Symptoms Stop: 06/29/24 06:54 Melatonin (Melatonin 5 Mg Tablet) 5 mg PO QHS PRN PRN Reason: Insomnia Stop: 06/28/24 21:34 Metoprolol Tartrate (Metoprolol Tartrate 25 Mg Tablet) 25 mg PO BID [facility] Stop: 06/29/24 20:59 Last Admin: 07/01/23 08:20 Dose: 25 mg Ondansetron HCl (Ondansetron 4 Mg/2 Ml Vial) 4 mg IV-PUSH Q8H PRN PRN Reason: Nausea And Vomiting Stop: 06/28/24 21:34 Oxycodone/Acetaminophen (Oxycodone/Acetaminophen 5-325 Mg Tablet) 2 tab PO Q6H PRN PRN Reason: Pain Last Admin: 07/01/23 03:35 Dose: 2 tab Pantoprazole Sodium (Pantoprazole 40 Mg Tablet.) 40 mg PO BID [facility] Stop: 06/29/24 08:59 Last Admin: 07/01/23 [...] signed by MD Los Grissom> 07/01/23 1016 [facility] Work Phone: 1(789) 872-766501-05-2024 Progress note Author Jim Randhawa [facility] June 30, 2023 1:13pm Note Date/Time June 30, 2023 1: 13pm [facility] [address] [place] [address] Hospitalist Progress Note Signed Patient: Mabel Moser MR#: [id number] : 1960 Acct:[id number] Age/Sex: 63 / F Adm Date: 4 Loc: Room: [address] [place] [address] Type: ADM IN Attending Dr: Jim Randhawa [...] 1309 Signed By: <Electronically signed by Jim Randhawa, DO> 06/30/23 1313 [facility] Work Phone: 1(120) 932-807801-05-2024 Consult note Author Los Grissom [facility] June 30, 2023 10:45am Note Date/Time June 30, 2023 10 :26am [facility] [address] [place] [address] Nephrology Consult Note Signed Patient: Mabel Moser MR#: [id number] : 1960 Acct:[id number] Age/Sex: 63 / F Adm Date: 4 Loc: Room: [address] [place] [address] Type: ADM IN Attending Dr: Jim Randhawa DO Copies to: MD Los Mensah MD Shawn J Warner, DO~ Providers Consult Date: 06/30/23 Requesting Provider: Jim Randhawa DO Primary Care Provider: Yuri Santana MD [facility] Reason for Consult: LEEANN with creatinine 3.16 [...] and no additional complaints, except as documented [facility] Medical History CAD (coronary artery disease) Geraldine filter in place Hypertension Surgical History History [...] Ml Vial) 1 mg IV-PUSH BID@0800,1600 [facility] Stop: 06/29/24 07:59 Last Admin: 06/30/23 09:31 Dose: 1 mg Calcium Acetate (Calcium Acetate 667 Mg Capsule) 667 mg PO BID.WITH.MEALS LOREN Stop: 06/29/24 07:59 Last Admin: 06/30/23 09:30 Dose: 667 mg Duloxetine HCl (Duloxetine 60 Mg Capsule.) 120 mg PO DAILY [facility] Stop: 06/29/24 08:59 Last Admin: 06/30/23 09:30 Dose: 120 mg Escitalopram Oxalate (Escitalopram 20 Mg Tablet) 20 mg PO DAILY [facility] Stop: 06/29/24 08:59 Last Admin: 06/30/23 09:31 Dose: 20 mg Fentanyl (Fentanyl Patch 100 Mcg/Hour Patch.Td72) 100 mcg TRANSDERML Q72H [facility]; Protocol Last Admin: 06/30/23 09:31 Dose: 100 mcg Ferrous Sulfate (Ferrous Sulfate 324 Mg Tablet.) 324 mg PO DAILY [facility] Stop: 06/29/24 08:59 Last Admin: 06/30/23 09:31 Dose: 324 mg Gabapentin (Gabapentin 100 Mg Capsule) 100 mg PO TID LOREN Stop: 06/29/24 08:59 Last Admin: 06/30/23 09:31 Dose: 100 mg Guaifenesin/Dextromethorphan (Guaif/Dextromethorphan Syrup 10 Ml Udc) 10 ml PO Q8H PRN PRN Reason: Cough Stop: 06/28/24 21:34 Heparin Sodium (Porcine) (Heparin 5,000 Unit/Ml Vial) 5,000 unit SUBCUT Q12HR [facility] Stop: 06/29/24 08:59 Last Admin: 06/30/23 09:32 Dose: 5,000 unit Levothyroxine Sodium (Levothyroxine 100 Mcg Tablet) 100 mcg PO DAILY@0630 [facility] Stop: 06/29/24 06:29 Last Admin: 06/30/23 05:55 Dose: 100 mcg Linaclotide (Linaclotide 290 Mcg Capsule) 290 mcg PO Q48HR [facility] Stop: 06/29/24 08:59 Last Admin: 06/30/23 09:33 Dose: 290 mcg Liothyronine Sodium (Liothyronine 25 Mcg Tablet) 25 mcg PO DAILY [facility] Stop: 06/29/24 08:59 Loratadine (Loratadine 10 [...] Mg Tablet.Dr) 40 mg PO BID [facility] Stop: 06/29/24 08:59 Last Admin: 06/30/23 09:31 Dose: 40 mg Primidone (Primidone 50 Mg Tablet) 100 mg PO HS [facility] Stop: 06/29/24 21:59 Sevelamer Carbonate (Sevelamer Carbonate 800 Mg Tablet) 800 mg PO TID [facility] Stop: 06/29/24 08:59 Tizanidine HCl (Tizanidine [...] signed by MD Los Grissom> 06/30/23 1045 [facility] Work Phone: 1(240) 546-223901-04-2024 History and physical note Author Beatriz Oh [facility] June 29, 2023 9:51pm Note Date/Time June 29, 2023 9: 47pm [facility] [address] [place] [address] Hospitalist H&P Signed Patient: Mabel Moser MR#: [id number] : 1960 Acct:[id number] Age/Sex: 63 / F Adm Date: 4 Loc: Room: [address] [place] [address] Type: ADM IN Attending Dr: Papito Garces [...] She denies having dysuria, hematuria, or frequency. [facility] Medical History CAD (coronary artery disease) [...] mg PO BID 08/31/18 [History Confirmed 10/28/22] qonizvce-tfkbnbc-wilz-iron fum 18 mg-folic 600 mcg-vit K 80 [...] TID PRN Edema 10/28/22 [History Confirmed 10/28/22] brjpxpbysd-ilnqnebaotijd-eoofandy 50 mg-325 mg-40 mg capsule 1 cap [...] signed by Beatriz Oh MD> 06/29/23 215 [facility] Work Phone: 1(506) 277-799010-10-2023 Evaluation note* Encounter Date Diagnosis Assessment Notes [...] G43.519) Advised the patient to follow with [facility] neurology clinic Mar, Chronic kidney disea [...] (ICD-10 - E83.39) Continue PhosLo with meals [facility] Other 04-04-2023 Evaluation note* Encounter Date Diagnosis Assessment Notes [...] G43.519) Advised the patient to follow with [facility] neurology clinic [facility] Other 03-28-2023 [facility]The [id number] Evaluation note* Encounter Date Diagnosis Assessment Notes Treatment Notes Treatment Clinical Notes Jul, Contusion of right wrist, initial encounter (ICD-10 - S60.211A) Patient placed in cock up wrist splint. Activities 2-5 lbs ADLs [facility] Other 12-13-2022 NoteThe [facility] [id number] NoteThe [facility] [id number] [facility]-20[facility] Evaluation note * Encounter Date Diagnosis Assessment [...] pressure. Advised the patient to follow-up with [facility] neurology clinic I will try to reach to Dr. Santana's office about fludrocortisone I would continue same blood pressure medications. Advised the patient to follow a low-salt diet and to monitor her blood pressure at home Mar, Migraine aura, persistent, intractable (ICD-10 - G43.519) Advised the patient to follow with [facility] neurology clinic [facility] Other 08-04-2022 NoteThe [facility] [id number] NoteThe [facility] [id number] Evaluation note* Encounter Date Diagnosis Assessment Notes [...] reviewed and medications being adjusted by Dr. Yuri Santana May, Hyperkalemia (ICD-10 - E87.5) Potassium [...] off all diuretics metolazone, spironolactone and bumetanide. [facility] Other Discharge summary Author Jim Randhawa [facility] July 03, 2023 3:03pm Note Date/Time July 03, 2023 2: 55pm [facility] [address] [place] [address] Discharge Summary Signed Patient: Mabel Moser MR#: [id number] : 1960 Acct:[id number] Age/Sex: 63 / F Adm Date: 4 Loc: Room: [address] [place] [address]: Jim Randhawa DO Copies to: MD Jim Mensah, DO~ Providers Date of Admission: 06/29/23 Date of Discharge: 07/03/23 Discharging Provider: Jim Randhawa Primary Care Provider: Yuri Santana Consults: 06/29/23 21:35 Consult to Nephrology [...] Patient Ordered By: Jim Randhawa Follow Up: Yuri Santana MD [Primary Care Provider] - (Office [...] signed by Jim Randhawa, > 07/03/23 1503 [facility] Work Phone: Evaluation + Plan note No data available for this section [facility] Evaluation noteNo assessment information available [facility] Work Phone: Evaluation noteNo InformationNort [employer] Other Evaluation note* Diagnosis Onset Date Resolution Status Acute heart failure acute LEEANN (acute kidney injury) ac isela Anemia chronic CKD (chronic kidney disease) stage 3, GFR 30-59 ml/min chronic Hypertension chronic [facility] Work Phone: Evaluation note* Diagnosis Onset Date Resolution Status CHF (congestive heart failure) acute Chronic kidney disease, stage 3b acute Fluid overload acute Hyperkalemia acute Secondary hyperparathyroidism acute Vitamin D deficiency acute Anemia chronic Hyponatremia chronic [facility] Work Phone: History general Narrative - Reported* [...] Medical History C- DIFF 03/2021 Medical History [facility] 04/2021 Surgical History rotator cuff tear repair [...] History COVID 05/2020 Hospitalization History COVID 04/2021 [facility] Other [employer] general Narrative - Reported* Type Description Date [...] Medical History C- DIFF 03/2021 Medical History [facility] 04/2021 Surgical History rotator cuff tear repair [...] History COVID 05/2020 Hospitalization History COVID 04/2021 [facility] Other history general Narrative - Reported* Type [...] 04/2021 Hospitalization History ELEVATED POTASSIUM LEVEL 09/19/2022 [facility] Other Hospital Discharge instructions Additional Instructions Home health to manage: - PT/OT to eval and treat - Monitor VS routine - Dx. HTN - CHF assessments/education - Urinary assessments - Dx. CKD on LEEANN - Fall precautions - high [facility] Work Phone: Hospital Discharge instructions No data available for this section [facility] Progress note No data available for this section [facility] Summary Purpose Family History No Family History Records Found Relationship Condition Age at Onset Recorded Date/T gama father Heart disease Unknown Hypertension Unknown Diabetes mellitus Unknown Unknown family member Unknown mother History of stroke Unknown Malignant neoplasm Unknown Family history of mental disorder Unknown Heart disease Unknown Advance Directives No Advanced Directives Records Found [...] disease) stage 3, GFR 30-59 ml/min Hypertension Chief Complaint RENAL F/U Reason for Visit CHF (congestive hear t failure) Chronic kidney disease, stage 3b Fluid overload Hyperkalemia Secondary hyperparathyroidism Vitamin D deficiency Anemia Hyponatremia Additional Source Comments INFORMATION SOURCE (unrecogn ized section and content) DATE CREATED AUTHOR 01/14/2019 [facility] DATE CREATED AUTHOR AUTHOR'S ORGANIZ ATION 07/24/2021 [facility] DATE CREATED AUTHOR AUTHOR'S ORGANIZ ATION 01/17/2022 [facility] DATE CREATED AUTHOR AUTHOR'S ORGANIZ ATION 12/05/2022 [facility] DATE CREATED AUTHOR AUTHOR'S ORGANIZ ATION 08/04/2023 [facility] DATE CREATED AUTHOR AUTHOR'S ORGANIZ ATION 10/19/[address] [facility] DATE CREATED AUTHOR AUTHOR'S ORGANIZ ATION 03/07/2024 [facility] DATE CREATED AUTHOR AUTHOR'S ORGANIZ ATION 03/27/2024 [facility] DATE CREATED AUTHOR AUTHOR'S ORGANIZ ATION 06/05/2024 [facility] DATE CREATED AUTHOR AUTHOR'S ORGANIZ ATION 09/10/2024 [facility] REASON FOR VISIT (unrecogniz ed section and content) RENAL 6 month f/u for CKD st age [age] with recurrent LEEANN on diureticsRENAL 4 month Follow up, NO LABSRight Wrist InjuryRENAL 6 month Follow upClinicalClinicalTELEVISIT VS OVRENAL F/USWELLING Care Teams (unrecognized sec tion and content) Team Status: Active Member Role Status Dates Yuri Santana MD Primary Care Provider Active Team Status: Inactive Member Role Status Dates Yuri Santana MD Primary Care Provider Active Favian Helm PA-C Emergency Provider Active Team Status: Inactive Member Role Status Dates Yuri Santana MD Primary Care Provider Active Beatriz Oh MD Admit Provider Active Jim Randhawa DO Attending Provider Active Los Grissom MD Other Provider Active Team Status: Inactive Member Role Status Dates Yuri Santana MD Primary Care Provider Active Start: March 26, 2024 End: March 26, 2024 Raeann Kirkpatrick MD Attending Provider Active Star t: March 26, 2024 End: March 26, 2024 Goals (unrecognized section and content) Goals may [...] BE BASED ON THE PRIMARY CLINICAL RECORDS. [facility] [employer] [facility]. provides no warranty or guarantee of the accuracy or completeness of information in this document.
--- NOTE | 2025-01-21 10:25 | CT_ITS ---
The [address] [address] Patient Name: JOSE CLEMENTS MRN: [id number] date: 1960 Sex: F Assigned Patient Location: CT Current Patient Location: CT Accession/Order Number: [id number] Exam Date: 01/21/2025 11:45 Report Date: 01/21/2025 11:54 At the request of: ANGLE SANTANA MD Procedure: CT abdomen pelvis w con CT ABDOMEN AND PELVIS WITH CONTRAST CLINICAL DATA: Right upper quadrant pain for the past 6 months. COMPARISON: 01/21/2024 Spiral images were obtained through the abdomen and pelvis following 100 mL of Omnipaque 300. This CT exam was performed using one or more following dose reduction techniques: Automated exposure control, adjustment of the mA and/or kV according to patient size, or use of iterative reconstruction technique. Limited cuts through the lung bases show minor atelectasis and/or scarring. The gallbladder is surgically absent. There is continued intra and extrahepatic biliary dilatation. No common duct stones are noted. No hepatic or splenic abnormalities are identified within limits of streak artifact. The pancreas is somewhat atrophic. No adrenal nodularity is seen. The renal left glands are symmetric. No hydronephrosis is identified. The abdominal aorta is normal caliber. A low-lying IVC filter is again visualized extending into the right common iliac vein. There is no pathologic lymphadenopathy or ascites. There are postoperative changes suggesting previous bariatric surgery. The small bowel loops are not disproportionately distended. There is a large amount of stool throughout the colon. There are sutures at the midline at the anterior abdominal wall. Postoperative and degenerative changes are seen at the spine. Images through the pelvis show no dilated small bowel. The appendix is not obvious. There is mild stool at the distal colon as well as stool at the cecum. No diverticular disease is noted. The uterus appears to be surgically absent. The urinary bladder shows no abnormalities for the degree of distention. There is no ascites. CT/CT abdomen pelvis w con IMPRESSION: CONTINUED BILIARY DILATATION THAT MAY BE RELATED TO PREVIOUS CHOLECYSTECTOMY. NO BOWEL OR URINARY TRACT OBSTRUCTION. INCREASED COLONIC STOOL SUGGESTING CONSTIPATION. NO OTHER ACUTE FINDINGS. Impression dictated by: Alysia Brunner M.D. 01/21/2025 11:54 AM Dictation Location: [id number] Electronically authenticated by: [id number] Y Date: 01/21/2025 11:54
== END 2025-01-21 09:56 | disposition home or self-care (01) ==
LOC: CT 09:55
PROVIDERS: PCP Family Medicine; Visit Provider Family Medicine
DX: R10.9 Unspecified abdominal pain (principal); Z90.49 Acquired absence of other specified parts of digestive tract
CPT/HCPCS: 36591; 74177; Q9967

== ENCOUNTER 2025-01-27 13:53 | Outpatient (OUT) | payer MEDICARE, MEDICAID, SELFPAY ==
--- OUTSIDE RECORDS SUMMARY | 2025-01-20 07:23 | XMS_ITS ---
Author Organization [facility] in [place] Address [address] [place] [address] Care Team Providers Care Bath Steward/Stewardess Name Role Phone Vinay Godinez Primary Care Provider [phone] REASON FOR VISIT XR- Encounters Encounter Location Date Provider Diagnosis [facility] [address] [place] [address] 01/20/2025 Vinay Godinez Low back pain at multiple sites M54.50 Assessments Encounter Date Diagnosis (ICD Code) Assessment Notes Treatment Notes Treatment Clinical Notes Section Notes 01/20/2025 Low back pain at multiple sites (ICD-10 - M54.50) Plan Of Treatment Pending Test Test Name Order Date XR Lumbar Spine (2-3 views) * 01/20/2025 Next Appt Details Provider Name:Ny Rae , 02/18/2025 11:00:00 AM, [address] [place], [address], Provider Name:Ny Rae , 02/18/2025 11:15:00 AM, [address] [place], [address], Progress Notes * Mabel CLEMENTS ADOB:1959 (64 yo F)Acc No.[id number]:01/20/2025 Patient: Mabel CLAYTON :1960 A ge:64 Y S ex:Female Address:[address] [place] [address] [address] , [place], [address] Subjective: * Chief Complaints: * X R- * Medical History: * Surgical History: * Hospitalization/Major Diagno stic Procedure: * Medications: Objective: * Vitals: * Physical Examination: Assessment: * Assessment: 1. L ow back pain at multiple sites - M54.50 Plan: * Treatment: * Procedure Codes: * true * Date: Generated for Inocente gann/Vonda/Josesmitting on: 0 01/27/2025 01:55 PM EDT
--- OUTSIDE RECORDS SUMMARY | 2025-01-21 10:20 | XMS_ITS ---
Author Organization [facility] in [place] Address [address] [place] [address] Care Team Providers Care Interior Design Professor Name Role Phone Vinay Godinez Primary Care Provider [phone] and lab results Encounters Encounter Location Date Provider Diagnosis [facility] [address] [facility] [place] [address] 01/21/2025 Vinay Herbert Plan Of Treatment Next Appt Details Provider Name:Ny Rae , 02/18/2025 11:00:00 AM, [address] [place], [address], Provider Name:Ny Rae , 02/18/2025 11:15:00 AM, [address] [place], [address], Progress Notes * Mabel CLEMENTS ADOB:1959 (64 yo F)Acc No.[id number]:01/21/2025 Patient: Bob Mabel BURGOS :1960 A ge:64 Y S ex:Female Address:[address] [place] [address], [address] * true * Date: Generated for Printi ng/Faxing/eTransmitting on: 0 01/27/2025 01:54 PM EDT
--- OUTSIDE RECORDS SUMMARY | 2025-01-24 07:48 | XMS_ITS ---
Author Organization [facility] in [place] Address [address] [place] [address] Care Team Providers Care Piece Goods Packer Name Role Phone Vinay Godinez Primary Care Provider [phone] REASON FOR VISIT rf xanax and fentanyl Medications Medication SIG (Take, Route, Fr equency, Duration) Notes Start Date End Date Status fentaNYL 100 MCG/HR 1 patch to skin Terry sdermal every 72 hours 01/24/2025 Active ALPRAZolam 0.5 MG TAKE 1 TABLET BY HARRY TH TWICE A DAY NEEDED for 30 01/24/2025 Active Encounters Encounter Location Date Provider Diagnosis [facility] [address] [place] [address] 01/24/2025 Vinay Godinez Cellulitis L03.9 0 Assessments Encounter Date Diagnosis (ICD Code) Assessment Notes Treatment Notes Treatment Clinical Notes Section Notes 01/24/2025 Cellulitis (ICD-10 - L03.90) Plan Of Treatment Medication Medication Name Sig Start Date Stop Date Notes fentaNYL 100 MCG/HR 1 patch to skin Terry sdermal every 72 hours 01/24/2025 ALPRAZolam 0.5 MG TAKE 1 TABLET BY HARRY TH TWICE A DAY NEEDED for 30 01/24/2025 Next Appt Details Provider Name:Ny Rae , 02/18/2025 11:00:00 AM, [address] [place], [address], Provider Name:Ny Rae , 02/18/2025 11:15:00 AM, [address] [place], [address], Progress Notes * Mabel CLEMENTS ADOB:1959 (64 yo F)Acc No.[id number]:01/24/2025 Patient: Mabel CLAYTON :1960 A ge:64 Y S ex:Female Address:[address] [place] [address], [address] * Refills Refill fentaNYL Patch 72 Hour, 100 MCG/HR, Transdermal, 10, 1 patch to skin, every 72 hours, Refills=0 Refill ALPRAZolam Tablet, 0.5 MG, 60 Tablet, TAKE 1 TABLET BY MOUTH TWICE A DAY NEEDED, 30, Refills=0 * true * Date: Generated for Inocente gann/Vonda/Florinaitting on: 0 01/27/2025 01:55 PM EDT
--- OUTSIDE RECORDS SUMMARY | 2025-01-27 13:54 | XMS_ITS | Clinical Summary ---
Author Organization [facility] Address [address], [address] [place] [address] Care Team Providers Care File Drawer Finisher Name Role Phone Yuri Godinez MD Primary Care Provider [phone] Allergies Active Allergy Reactions Criticality Noted Date Comments Amoxicillin-Pot Clavulanate Nausea And Vomiting Low 01/14/2019 Povidone Iodine 09/07/2018 Sulfa Antibiotics 09/07/2018 Medications fentaNYL (DURAGESIC) 100 MCG/HR Place 1 patch onto the skin every 72 hours. Active albuterol (PROVENTIL) (2.5 MG/3ML) 0.083% nebulizer solution Take 3 mLs by nebulization every 6 hours as needed for Wheezing Active ALPRAZolam (XANAX) 0.25 MG tablet Take 2 tablets by mouth 2 times daily. Patient takes it 0.5 takes nighty Active azelastine (OPTIVAR) 0.05 % ophthalmic solution Place 1 drop into both eyes daily Active calcium carbonate (TUMS) 500 MG chewable tablet Take 1 tablet by mouth 4 times daily Active fluticasone-vilant malik (BREO ELLIPTA) 100-25 MCG/INH AEPB inhaler Inhale into the lungs as needed Active hydrOXYzine (VISTARIL) 25 MG capsule Take 1 capsule by mouth 4 times daily as needed for Itching Active levothyroxine (SYNTHROID) 100 MCG tablet Take 1 tablet by mouth Daily Active metoclopramide (REGLAN) 5 MG tablet Take 1 tablet by mouth 3 times daily (before meals) As needed Active Multiple Vitamins-Minerals (THERAPEUTIC MULTIVITAMIN-AUTOMOBILE ACCESSORIES INSTALLER ALS) tablet Take 1 tablet by mouth daily Active ondansetron (ZOFRAN-ODT) 4 MG disintegrating tablet Take 1 tablet by mouth every 8 hours as needed for Nausea or Vomiting Active oxyCODONE-acetamin ophen (PERCOCET) 5-325 MG per tablet Take 2 tablets by mouth every 6 hours as needed for Pain (1-2 tablets). Active potassium chloride (MICRO-K) 10 MEQ extended release capsule Take 1 capsule by mouth as needed Active tiZANidine (ZANAFLEX) 4 MG tablet Take 1 tablet by mouth every 6 hours as needed Patient takes 2 tablets at night Active b complex vitamins capsule Take 1 capsule by mouth daily Active bumetanide (BUMEX) 1 MG tablet Take 2 tablets by mouth 2 times daily Patient takes 4 tablets twice a day. Active rizatriptan (MAXALT-RUBBER STAMP ASSEMBLER) 10 MG disintegrating tablet Take 1 tablet by mouth 3 times daily as needed for Migraine May repeat in 2 hours if needed Active citalopram (CELEXA) 40 MG tablet Take 0.5 tablets by mouth daily Active liothyronine (CYTOMEL) 5 MCG tablet Take 5 tablets by mouth daily Active apixaban (ELIQUIS) 2.5 MG TABS tabletIndications: DO NOT RESUME UNTIL 824 AM Take 2 tablets by mouth 2 times daily Indications: DO NOT RESUME UNTIL 8824 AM Active primidone (MYSOLINE) 50 MG tablet Take 3 tablets by mouth nightly Active amitriptyline (ELAVIL) 150 MG tablet Take 1 tablet by mouth nightly Active spironolactone (ALDACTONE) 50 MG tablet Take 1 tablet by mouth daily Patient takes PRN Active metoprolol succinate (TOPROL XL) 50 MG extended release tablet Take 1 tablet by mouth daily Active desvenlafaxine succinate (PRISTIQ) 50 MG TB24 extended release tablet Take 1 tablet by mouth daily Active ARIPiprazole (ABILIFY) 2 MG tablet Take 1 tablet by mouth daily Active pramipexole (MIRAPEX) 1 MG tablet Take 1 tablet by mouth Daily Active diclofenac sodium (VOLTAREN) 1 % GEL Apply topically 4 times daily as needed for Pain Active aspirin 81 MG chewable tablet Take 1 tablet by mouth daily 30 tablet 3 01/31/20 24 Active butalbital-acetami nophen-caffeine (FIORICET, ESGIC) 50-325-40 MG per tabletIndications: Vertebral artery dissection Take 1 tablet by mouth every 4 hours as needed for Headaches Max Daily Amount: 6 tablets 180 tablet 3 01/30/20 24 Active atorvastatin (LIPITOR) 40 MG tablet Take 1 tablet by mouth nightly 30 tablet 3 01/30/20 24 Active Ergocalciferol (VITAMIN D) 37124 units CAPS Take 50,000 Units by mouth once a week 5 capsule 01/31/20 24 Active Active Problems Problem Noted Date Diagnosed Date S/P cervical spinal fusion 03/12/2024 Overview (03/12/2024): C1-2 Closed displaced fracture of first cervical vertebra with routine healing 03/12/2024 MDD (major depressive disord er), recurrent episode, moderate 01/26/2024 Compression fracture of C2 vertebra with delayed healing 01/22/2024 History of stroke 01/22/2024 Other displaced dens fracture, sequela Syncope 01/22/2024 Vertebral artery dissection 01/22/2024 Closed nondisplaced fracture of second cervical vertebra 09/30/2023 Fall at home, initial encounter 09/30/2023 Restless leg syndrome 09/30/2023 Peripheral vascular disease 09/30/2023 Neuropathy 09/30/2023 Hypertension 09/30/2023 Depression 09/30/2023 Chronic kidney disease 09/30/2023 CHF (congestive heart failure) 09/30/2023 Fibromyalgia 09/30/2023 Irritable bowel syndrome 09/30/2023 Arthritis 09/30/2023 Cortical age-related cataract of left eye 2018 Cerebral artery occlusion with cerebral infarcti on 06/26/2011 Resolved Problems Problem Noted Date Diagnosed Date Resolved Date Pre-operative cardiovascular examination 01/22/2024 02/21/2024 Combined forms of age-relate d cataract of right eye 12/02/2018 12/03/2018 Family History Medical History Relation Name Comments Arthritis Father High Blood Pressure Father Stroke Father Arthritis Mother Cancer Mother Coronary Art Dis Mother Diabetes Mother Heart Disease Mother High Blood Pressure Mother Relation Name Status Comments Father Mother Social History Tobacco Use Types Packs/Day Years Used Date Smoking Tobacco: Never Smokeless Tobacco: Never Alcohol Use Standard Drinks/Week Comments Never 0 (1 standard drink = 0.6 oz pur e alcohol) [facility] Utilities Answer Date Recorded In the past 12 months has th e electric, gas, oil, or water company threatened to shut off services in your home? No 01/22/2024 AUDIT-C Answer Date Recorded Frequency of Alcohol Consumption Never 12/03/2018 Average Number of Drinks Not on file 019 Frequency of Binge Drinking Not on file 11/24 Hunger Vital Sign Answer Date Recorded Within the past 12 months, y ou worried that your food would run out before you got the money to buy more. Never true 01/22/20 24 Within the past 12 months, t he food you bought just didn't last and you didn't have money to get more. Never true 01/22/2024 PRAPARE - Transportation Answer Date Re corded In the past 12 months, has l ack of transportation kept you from medical appointments or from getting medications? No 12/25 In the past 12 months, has l ack of transportation kept you from meetings, work, or from getting things needed for daily living? No 01/22/2024 Housing Stability Vital Sign Answer Walter e Recorded In the last 12 months, was t here a time when you were not able to pay the mortgage or rent on time? No 01/22/2024 In the last 12 months, how many places have you lived? 1 01/22/2024 In the last 12 months, was t here a time when you did not have a steady place to sleep or slept in a usp (including now)? No 01/22/2024 Food Insecurity Answer Date Recorded Within the past 12 months, y ou worried that your food would run out before you got the money to buy more. 1 01/22/2024 Within the past 12 months, t he food you bought just didn't last and you didn't have money to get more. 1 01/22/2024 Interpersonal Safety Domain Source: IP Abuse Scr eening Answer Date Recorded Physical abuse Denies 01/22/2024 Verbal abuse Denies 01/22/2024 Emotional abuse Denies 01/22/2024 Financial abuse Denies 01/22/2024 Sexual abuse Denies 01/22/2024 Comments No Sex and Gender Information Value Date Recorded Sex Assigned at Not on file Legal Sex Female 10:51 AM EST Gender Identity Not on file Sexual Orientation Not on file Last Filed Vital Signs Vital Sign Reading Time Taken Comments Blood Pressure 129/78 03/12/2024 8:43 AM EDT Pulse 67 03/12/2024 8:43 AM EDT Temperature 36.7 C (98 F) 03/12/2024 8:43 AM EDT Respiratory Rate 14 01/30/2024 3:31 PM EDT Oxygen Saturation 98% 01/30/2024 3:31 PM EDT Inhaled Oxygen Concentration - - Weight 96.2 kg (212 lb) 03/12/2024 8:43 AM EDT Height 157.5 cm (5' 2.01 ) 03/12/2024 8:43 AM ED T Body Mass Index 38.76 03/12/2024 8:43 AM EDT Plan of Treatment Health Maintenance Due Date Last Done Comments Lipids 02/24/1972 Depression Monitoring 1974 HIV screen 1977 Hepatitis C screen 02/24/1980 DTaP/Tdap/Td vaccine (1 - Tdap) 1981 Pap smear 1983 Cervical cancer screen 02/24/1992 HPV (without or with Pap) 02/24/1992 Breast cancer screen 2002 Colonoscopy 2007 Colorectal Cancer Screen 2007 FIT/FOBT: Average risk 2007 Fecal-DNA (Cologuard): Average risk 2007 Sigmoidoscopy/CT colonography 2007 Respiratory Syncytial Virus (RSV) or age 60 yrs+ (1 - Risk 60-74 years 1-dose series) 2022 COVID-19 Vaccine ( season) 2024 04/07/2022, 09/24/2020, 08/27/2020 Flu vaccine (#1) 01/24/2025 03/11/2023, 10/2021, 04/07/2022, Additional history exists GFR test (Diabetes, CKD 3-4, OR last GFR 15-59) 01/28/2025 01/29/2024, 01/28/2024, 01/27/2024, Additional history exists Pneumococcal 0-49 years Vaccine Discontinued 08/19/2022, 04/12/2016 Pneumococcal 50+ years Vaccine Completed 08/19/2022, 04/12/2016 Shingles vaccine Completed 08/19/2022, 04/07/2022 Hepatitis A vaccine Aged Out No longe r eligible based on patient's age to complete this topic Hepatitis B vaccine Aged Out No longe r eligible based on patient's age to complete this topic Hib vaccine Aged Out No longer eligi ble based on patient's age to complete this topic Meningococcal (ACWY) vaccine Aged Out No longer eligible based on patient's age to complete this topic Meningococcal B vaccine Aged Out No l onger eligible based on patient's age to complete this topic Polio vaccine Aged Out No longer elig ible based on patient's age to complete this topic Medical Devices Implanted Type Area Asbestos Abatement Worker Device Identifier Shelf Expiration Date Model / Serial / Lot Lens Iol [id number] 13.00mm 14.50 D - [id number] Implanted:Qty: 1 on 12/03/2018 by Sebas Carpenter MD at [facility] Eye Right: Eye BAUSCH -PMM 10/23/2022 [id number] 14.50D / [id number] / Lens Iol Li61ao 13.00mm 15.50 D - [id number] Implanted:Qty: 1 on 01/14/2019 by Sebas Carpenter MD at [facility] Eye Left: Eye BAUSCH -PMM [id number] 15.50D / [id number] / Impl Spine Alphonso Pre-Cut 3.5x25mm - [id number] Implanted:Qty: 1 on 01/25/2024 by Jackie Mejia DO at [facility] Spine N/A: Spine Cervical [employer]-PMM [id number] / / Alphonso Spnl L35mm Od35mm Ti Cervicothoracic Precut Prebent - [id number] Implanted:Qty: 1 on 01/25/2024 by Jackie Mejia DO at [facility] N/A: Spine Cervical [employer] TADOR TRACY-WD [id number] / / Kit Bne Grft Xsm 1.4cc Rhbmp-2 Absrb Cllgn Spng Infuse - [id number] Implanted:Qty: 1 on 01/25/2024 by Jackie Mejia DO at [facility] N/A: Spine Cervical [employer] SPINALGRAFT TECH-WD [id number] 03/25/2025 [id number] / / [id number] Q Description:Cervical 1-2 Graft Cellr Bne Matrx Influx Sparc 5cc - [id number] Implanted:Qty: 1 on 01/25/2024 by Jackie Mejia DO at [facility] N/A: Spine Cervical [employer]-WD 08/14/2025 [id number] / / [id number] Graft Cellr Bne Matrx Influx Sparc 5cc - [id number] Implanted:Qty: 1 on 01/25/2024 by Jackie Mejia DO at [facility] N/A: Spine Cervical [employer]-WD 04/05/2026 [id number] / / [id number] Medtronic 3.5x32 Pt Screw Implanted:Qty: 1 on 01/25/2024 by Jackie Mejia DO at [facility] N/A: Spine Cervical [id number] / / Medtronic 3.5x34 Pt Screw Implanted:Qty: 1 on 01/25/2024 by Jackie Mejia DO at [facility] N/A: Spine Cervical [id number] / / Screw Spnl Multaxl 3.5x26 Mm Infin - [id number] Implanted:Qty: 2 on 01/25/2024 by Jackie Mejia DO at [facility] N/A: Spine Cervical [employer] SOFAMOR DANEK-WD [id number] / / Set Screw Spinal M6 - [id number] Implanted:Qty: 4 on 01/25/2024 by Jackie Mejia DO at [facility] N/A: Spine Cervical [employer] SOFAMOR DANEK-WD [id number] / / Procedures Procedure Name Priority Date/Time Associated Diagnosis Comments COMPREHENSIVE METABOLIC PANEL W/ REFLEX TO MG FOR LOW K [facility] Label Print 01/29/2024 11:57 AM EDT from Last 3 Months or Most Recently Relevant to Health Maintenance Results * (ABNORMAL) Comprehensive Metabolic Panel w/ Reflex to MG (01/29/2024 11:57 AM EDT) Sodium 131(L) 136 - 145 mmol/L 01/29/2024 11:57 AM EDT [facility] Potassium 4.4 3.7 - 5.3 mmol/L 01/29/2024 11:57 AM EDT [facility] Chloride 101 98 - 107 mmol/L 01/29/2024 11:57 AM EDT [facility] CO2 19(L) 20 - 31 mmol/L 01/29/2024 11:57 AM EDT [facility] Anion Gap 11 9 - 16 mmol/L 01/29/2024 11:57 AM EDT [facility] Glucose 90 74 - 99 mg/dL 01/29/2024 11:57 AM EDT [facility] BUN 46(H) 8 - 23 mg/dL 01/29/2024 11:57 AM EDT [facility] Creatinine 1.6(H) 0.50 - 0.90 mg/dL 01/29/2024 11:57 AM EDT [facility] Est, Glom Filt Rate 38(L) >60 mL/min/1. 73m2 01/29/2024 11:57 AM EDT [facility] Comment: These results are not intended for [...] following therapy that affects renal tubular secretion. Calcium 8.0(L) 8.6 - 10.4 mg/dL 01/29/2024 11:57 AM EDT [facility] Total Protein 5.4(L) 6.6 - 8.7 g/dL 01/29/2024 11:57 AM EDT [facility] Albumin 3.0(L) 3.5 - 5.2 g/dL 01/29/2024 11:57 AM EDT [facility] Albumin/Globulin Ratio 1.0 1.0 - 2.5 01/29/2024 11:57 AM EDT [facility] Total Bilirubin 0.2 0.00 - 1.20 mg/dL 01/29/2024 11:57 AM EDT [facility] Alkaline Phosphatase 205(H) 35 - 104 U/L 01/29/2024 11:57 AM EDT [facility] ALT <5(L) 10 - 35 U/L 01/29/2024 11:57 AM EDT [facility] AST 27 10 - 35 U/L 01/29/2024 11:57 AM EDT [facility] Blood BLOOD SPECIMEN / Unknown 01/29/2024 11:57 AM EDT 01/29/2024 11:57 AM EDT Frida Osborne DO CHEMISTRY ORDERABLES Final R esult [facility] [address] [phone] from Last 3 Months or Most Recently Relevant to Health Maintenance [place] [facility] [place] [address] [address] MEDICAID [place] Advance Directives * Full Code (Latest Code Status on File) Date Activated Date Inactivated Comments 01/22/2024 5:17 AM 01/31/2024 2:43 AM * Full Code Date Activated Date Inactivated Comments 09/30/2023 1:23 AM 10/01/2023 4:43 PM * Full Code Date Activated Date Inactivated Comments 01/14/2019 9:35 AM 01/14/2019 1:23 PM * Full Code Date Activated Date Inactivated Comments 12/03/2018 1:14 PM 12/03/2018 4:49 PM Care Teams File Drawer Finisher Relationship Specialty Start Date End Date Yuri Godinez MD [address] [place] [address] PCP - General Family Medicine 09/07/18
--- OUTSIDE RECORDS SUMMARY | 2025-01-27 13:54 | XMS_ITS | Clinical Summary ---
Author Organization Punctil s tem Address [id number] [address] [place] [address] Care Team Providers Care Channeler Runner Name Role Phone Yuri Godinez MD Primary Care Provider [phone] Allergies Active Allergy Reactions Criticality Noted Date Comments Amoxicillin-Pot Clavulanate Diarrhea,Abdominal Pain,Nausea And Vomiting Low 08/15/2016 Povidone-Iodine 08/15/2016 PEELS TOP LAYER OF SKIN Sulfa (Sulfonamide Antibiotics) Vomiting 08/15/2016 Medications butorphanol (STADOL) 10 mg/mL nasal spray Administer 1 spray into each nostril as needed for pain. Active levothyroxine (SYNTHROID) 88 MCG tablet Take 88 mcg by mouth daily. Active tiZANidine (ZANAFLEX) 4 mg tablet Take 4 mg by mouth every 6 (six) hours as needed. Active metoclopramide (REGLAN) 5 mg tablet Take 5 mg by mouth 4 (four) times a day. Active potassium chloride (K-DUR,KLOR-CON) 10 MEQ CR tablet Take 10 mEq by mouth daily. Active ondansetron (ZOFRAN) 4 mg tablet Take 4 mg by mouth every 8 (eight) hours as needed for nausea or vomiting. Active oxyCODONE-acetamin ophen (PERCOCET) 5-325 mg per tablet Take 1 tablet by mouth 2 (two) times a day as needed for pain. Active fentaNYL (DURAGESIC) 50 mcg/hr Place 1 patch on the skin every third day. Active b complex vitamins capsule Take 1 capsule by mouth daily. Active hyoscyamine (LEVSIN) 0.125 mg SL tablet Take 0.125 mg by mouth every 4 (four) hours as needed for cramping. Active acetaminophen (TYLENOL) 325 mg tablet Take 650 mg by mouth every 6 (six) hours as needed for pain. Active albuterol (ACCUNEB) 0.63 mg/3 mL nebulizer solution Inhale 1 ampule by nebulization every 6 (six) hours as needed for wheezing. Active alendronate (FOSAMAX) 70 mg tablet Take 70 mg by mouth every 7 days. In a.m. with water on empty stomach, nothing else by mouth and remain upright for 30min Active ALPRAZolam (XANAX) 0.25 mg tablet Take 0.25 mg by mouth 3 (three) times a day as needed for anxiety. Active calcium carbonate-vitamin D3 (OSCAL 500 + D) 500 mg(1,250mg) -200 units per tablet Take 1 tablet by mouth 2 (two) times a day with meals. Active fluticasone-vilant malik (BREO ELLIPTA) 100-25 mcg/dose blister with device Inhale 1 puff daily. Active hydrOXYzine (VISTARIL) 25 mg capsule Take 25 mg by mouth 4 (four) times a day as needed for itching. Active metoprolol tartrate (LOPRESSOR) 50 mg tablet Take 50 mg by mouth 2 (two) times a day. Active lzbpbbss-ique-DH-c alcium &mins (THERAGRAN-M) 9 mg iron-400 mcg tablet Take 1 tablet by mouth daily. Active rizatriptan CASHIER SELF SERVICE GASOLINE (MAXALT-CASHIER SELF SERVICE GASOLINE) 10 mg disintegrating tablet Dissolve 10 mg on tongue once as needed for migraine. May repeat in 2 hours if unresolved. Do not exceed 30 mg in 24 hours. Active epoetin tae (EPOGEN,PROCRIT) 10,000 unit/mL injection Inject under the skin every 30 (thirty) days. Active liothyronine (CYTOMEL) 5 MCG tablet Take 5 mcg by mouth daily. Active desvenlafaxine (PRISTIQ) 50 mg 24 hr tablet Take 50 mg by mouth daily. Active levocetirizine (XYZAL) 5 mg tablet Take 5 mg by mouth every evening. Active Active Problems Problem Noted Date Diagnosed Date Status post tympanoplasty 08/05/2019 Stenosis of cervical spine 06/05/2019 Overview (06/05/2019): Added automatically from request for surgery [id number] Tympanic membrane perforation, right 07/31/2018 Bilateral hearing loss 07/31/2018 Arthritis of right knee 08/11/2017 Spinal stenosis, lumbar aaron on, without neurogenic claudication 08/15/2016 Displacement of lumbar inter vertebral disc without myelopathy 08/15/2016 Pain in joint, pelvic region and thigh 7 Lumbosacral spondylosis without myelopathy 08/15 Low back pain 08/15/2016 Lumbosacral neuritis 08/15/2016 Fibromyalgia 08/15/2016 Family History Medical History Relation Name Comments Diabetes Father Heart disease Father COPD Mother Cancer Mother Diabetes Mother Relation Name Status Comments Father Mother Alive Social History Tobacco Use Types Packs/Day Years Used Date Smoking Tobacco: Former Smokeless Tobacco: Never Alcohol Use Standard Drinks/Week Comments Yes 0 (1 standard drink = 0.6 oz pure alcohol) very rare; special occasions only PHQ-2 Answer Date Recorded Total Score 0 08/28/2019 Childcare Answer Date Recorded Childcare Unknown 12/03/2018 Employment Answer Date Recorded Employment Unknown 12/03/2018 Purpose - Life Answer Date Recorded Purpose and direction in life Unknown Comments No Sex and Gender Information Value Date Recorded Sex Assigned at Not on file Legal Sex Female 11:57 AM EDT Gender Identity Not on file Sexual Orientation Not on file Last Filed Vital Signs Vital Sign Reading Time Taken Comments Blood Pressure 128/84 11/27/2019 11:12 AM EDT Pulse 81 08/01/2019 1:43 PM EST Temperature 36.5 C (97.7 F) 08/01/2019 11:45 AM EST Respiratory Rate 13 08/01/2019 12:55 PM EST Oxygen Saturation 97% 08/01/2019 1:43 PM EST Inhaled Oxygen Concentration - - Weight 88 kg (194 lb) 11/27/2019 11:12 AM EDT Height 157.5 cm (5' 2 ) 11/27/2019 11:12 AM EDT Body Mass Index 35.48 11/27/2019 11:12 AM EDT Plan of Treatment Health Maintenance Due Date Last Done Comments Depression Screening 1974 Tobacco Screening 1974 Adult BMI Screening 02/24/1980 DTaP,Tdap and Td Vaccines (1 - Tdap) 1981 COVID-19 Vaccine (4 2023-2 5 season) 2024 04/07/2022, 09/24/2020, 08/27/2020 Influenza Vaccine 02/24/2025 03/11/2023, , 04/07/2022, Additional history exists Zoster (Shingles) Vaccine Completed 08/19/2022, Medical Devices Implanted Type Area Soda Maker Device Identifier Shelf Expiration Date Model / Serial / Lot Soft Tissue Device [place] 5.2m M - Sna - [id number] Implanted:Qty: 1 on 08/11/2017 by Patrick Lala MD at [facility] Warren Right: Knee [employer] 06/25/2019 [id number] / NA / [id number] Cmnt Bn Plc R+Ggnta 40gm Grn Rpl [id number] - Sna - [id number] Implanted:Qty: 1 on 08/11/2017 by Patrick Lala MD at [facility] Cement Right: Knee [employer] 09/23/2020 [id number] 1 / NA / [id number] Cmnt Bn Plc R+Ggnta 40gm Grn Rpl [id number] - Sna - [id number] Implanted:Qty: 1 on 08/11/2017 by Patrick Lala MD at [facility] Cement Right: Knee [employer] 11/23/2020 [id number] 1 / NA / [id number] Cmnt Bn Plc R+Ggnta 40gm Grn Rpl [id number] - Sna - [id number] Implanted:Qty: 1 on 08/11/2017 by Patrick Lala MD at [facility] Cement Right: Knee [employer] [id number] 09/23/2020 [id number] 1 / NA / [id number] Tiss Aldrm Gft 2x4cm 6-12 Ea=1 Sheet=8 Cm2 - [id number] Implanted:Qty: 8 on 08/01/2019 by Anuj Mcallister MD PhD at [facility] Graft Right: Ear [employer] 10/23/2020 [id number] / [id number] / [id number] Description:AlloDerm Regener ative Tissue Matrix Cmpt Ptlr 32mm Nxgn Alply Rpl [id number] - Sna - [id number] Implanted:Qty: 1 on 08/11/2017 by Patrick Lala MD at [facility] Orthopedic Implant Right: Knee [employer] 03/25/2025 [id number] 2 / NA / [id number] Cmpt Fem E Kn Rt Lpsflx Gndr Rpl [id number] - Sna - [id number] Implanted:Qty: 1 on 08/11/2017 by Patrick Lala MD at [facility] Orthopedic Implant Right: Knee [employer] 03/25/2027 [id number] / NA / [id number] Ins Artc 3-4 E-F 12mm Kn Fx Rpl [id number] - Sna - [id number] Implanted:Qty: 1 on 08/11/2017 by Patrick Lala MD at [facility] Orthopedic Implant Right: Knee [employer] 01/23/2022 [id number] 2 / NA / [id number] Plt Tib [id number] Nxgn Kn Cmnt Rpl [id number] - Sna - [id number] Implanted:Qty: 1 on 08/11/2017 by Patrick Lala MD at [facility] Plate Right: Knee [employer] [id number] 07/26/[id number] 2 / NA / [id number] Port Port Description:indwelling right chest port for ongoing iron infusions Cancellous Screw 4.0 - Sna - [id number] Implanted:Qty: 1 on 08/11/2017 by Patrick Lala MD at [facility] Screw Right: Knee [employer] 08/11/2021 [id number] / NA / NA Port Description:right chest port for iron infusions Insurance [employer] MEDICARE MEDICAID [place] Care Teams Channeler Runner Relationship Specialty Start Date End Date Yuri Godinez MD PCP - General 12/06/16
--- OUTSIDE RECORDS SUMMARY | 2025-01-27 13:55 | XMS_ITS | Encounter Summary ---
Author Organization [facility] Address [address], [address] [place] [address] Care Team Providers Care Certified Hearing Instrument Dispenser Name Role Phone Yuri Godinez MD Primary Care Provider [phone] Encounter Details Date Type Department Care Team (Late st Contact Info) Description 09/29/2023 Direct Admit Orders [facility] INT MED [address] [place] [address] Luzma Gaspar PA Social History Tobacco Use Types Packs/Day Years Used Date Smoking Tobacco: Never Smokeless Tobacco: Never Alcohol Use Standard Drinks/Week Comments Never 0 (1 standard drink = 0.6 oz pur e alcohol) [facility] Utilities Answer Date Recorded In the past 12 months has e electric, gas, oil, or water company threatened to shut off services in your home? No 09/30/2023 AUDIT-C Answer Date Recorded Frequency of Alcohol Consumption Never 12/03/2018 Average Number of Drinks Not on file 019 Frequency of Binge Drinking Not on file 11/24 Hunger Vital Sign Answer Date Recorded Within the past 12 months, y ou worried that your food would run out before you got the money to buy more. Never true 09/30/19 24 Within the past 12 months, t he food you bought just didn't last and you didn't have money to get more. Never true 09/30/2023 PRAPARE - Transportation Answer Date Re corded In the past 12 months, has l ack of transportation kept you from medical appointments or from getting medications? No 11/2023 In the past 12 months, has l ack of transportation kept you from meetings, work, or from getting things needed for daily living? No 09/30/2023 Housing Stability Vital Sign Answer Walter e Recorded In the last 12 months, was t here a time when you were not able to pay the mortgage or rent on time? No 09/30/2023 In the last 12 months, how many places have you lived? 1 09/30/2023 In the last 12 months, was t here a time when you did not have a steady place to sleep or slept in a care home (including now)? No 09/30/2023 Food Insecurity Answer Date Recorded Within the past 12 months, y ou worried that your food would run out before you got the money to buy more. 1 09/30/2023 Within the past 12 months, t he food you bought just didn't last and you didn't have money to get more. 1 09/30/2023 Interpersonal Safety Domain Source: IP Abuse Scr eening Answer Date Recorded Read-Only, Retired: Physical Abuse Denies 09/30/2023 Read-Only, Retired: Verbal Abuse Denies 09/30/2023 Read-Only, Retired: Emotional abuse Denies 09/30/2023 Read-Only, Retired: Financial Abuse Denies 09/30/2023 Read-Only, Retired: Sexual abuse Denies 09/30/2023 Comments No Sex and Gender Information Value Date Recorded Sex Assigned at Not on file Legal Sex Female 10:51 AM EST Gender Identity Not on file Sexual Orientation Not on file documented as of this encounter Plan of Treatment Not on file documented as of this encounter Visit Diagnoses Not on filedocumented in this encounter Care Teams Certified Hearing Instrument Dispenser Relationship Specialty Start Date End Date Yuri Godinez MD [address] [id number] PCP - General Family Medicine 09/07/18 documented as of this encounter
--- OUTSIDE RECORDS SUMMARY | 2025-01-27 13:55 | XMS_ITS | Clinical Summary ---
Author Organization [facility] Address [address] [place] [address] Care Team Providers Care Scraper Hand Name Role Phone Yuri Godinez MD Primary Care Provider [phone] Social History Tobacco Use Types Packs/Day Years Used Date Smoking Tobacco: Never Assessed Comments Unknown Sex and Gender Information Value Date Recorded Sex Assigned at Not on file Legal Sex Female 2:43 PM EDT Gender Identity Not on file Sexual Orientation Not on file Plan of Treatment Health Maintenance Due Date Last Done Comments HEPATITIS C VIRUS SCREENING 1962 TETANUS 1962 HIV SCREENING DISCUSSION 1977 TDAP (ADULT) 1981 CERVICAL CANCER SCREENING DISCUSSION 1983 LIPID SCREENING 2002 MAMMOGRAM SCREENING DISCUSSION 2002 HEP B VACCINE (3 of 3 - 19+ 3-dose series) 01/29/2007 10/27/2006, 08/01/2006 COLORECTAL CANCER SCREENING DISCUSSION 2007 COVID-19 VACCINE (2 - 2023-2 5 season) 2024 04/07/2022 INFLUENZA VACCINE (#1) 2025 2, 04/07/2022, 03/24/2021, Additional history exists RSV VACCINE (1 - 1-dose 75+ series) 2037 PNEUMOCOCCAL VACCINE SERIES Discontinued 08/19/2022, 1 PNEUMOCOCCAL VACCINE SERIES Completed 08/19/2022, 1 ZOSTER (SHINGLES) VACCINE Completed 08/19/2022, Care Teams Scraper Hand Relationship Specialty Start Date End Date Yuri Godinez MD PCP - General Family Medicine 12/09/22
--- OUTSIDE RECORDS SUMMARY | 2025-01-27 13:55 | XMS_ITS | Clinical Summary ---
Author Organization [facility] Address [address] [place], [place] [address] Support Name Relationship Address Phone Delio Moser Spouse 06/[address] [place] [address] Jyothi Perez Daughter Unknown [phone] Care Team Providers Care Vp Software Engineering Name Role Phone Yuri Godinez MD Primary Care Provider [phone] Allergies Active Allergy Reactions Criticality Noted Date Comments Amoxicillin-Pot Clavulanate Diarrhea,Vomiting 0 03/18/2016 Povidone-Iodine Other: See Comments 03/18/2016 Peels skin Sulfa (Sulfonamide Antibiotics) Vomiting 03/18/[address] (PROTONIX) 40 mg tablet Take 40 mg by mouth twice daily. 02/16/20 16 Active tiZANidine (ZANAFLEX) 4 mg tablet Take 4 mg by mouth every 6 hours as needed. 02/21/20 16 Active VIIBRYD 40 mg 40 mg daily with breakfast. 02/22/20 16 Active levothyroxine (SYNTHROID) 88 mcg tablet Take 88 mcg by mouth once daily. 02/26/20 16 Active hydrOXYzine pamoate (VISTARIL) 25 mg capsule Take 25 mg by mouth three times daily as needed. 02/22/20 16 Active dicyclomine (BENTYL) 20 mg tablet Take 20 mg by mouth every 6 hours as needed. 02/22/20 16 Active ALPRAZolam (XANAX) 0.25 mg tablet Take 0.25 mg by mouth at bedtime as needed. 02/24/20 16 Active fluticasone-salme terol (ADVAIR DISKUS) 500-50 mcg/dose dsdv Inhale 1 Puff as instructed twice daily. Active temazepam (RESTORIL) 30 mg cap 30 mg daily at bedtime. 03/28/20 16 Active ondansetron orally disintegrating (ZOFRAN ODT) 4 mg disintegrating tabletIndications :Anemia, unspecified type,Renal insufficiency,Oth er vitamin B12 deficiency anemia,Iron deficiency anemia, unspecified iron deficiency anemia type Take 4 mg by mouth every 8 hours as needed. 08/01/19 17 Active alendronate (FOSAMAX) 70 mg tabletIndications :Anemia, unspecified type,Renal insufficiency,Iro n deficiency anemia, unspecified iron deficiency anemia type,Other vitamin B12 deficiency anemia,H/O gastric bypass Take 70 mg by mouth once each week. 08/12/19 18 Active amitriptyline (ELAVIL) 100 mg tabletIndications :Anemia, unspecified type,Renal insufficiency,Iro n deficiency anemia, unspecified iron deficiency anemia type,Other vitamin B12 deficiency anemia,H/O gastric bypass Take 150 mg by mouth daily at bedtime. 08/14/19 18 Active butorphanol (STADOL NS) 10 mg/mL nasal sprayIndications: Anemia, unspecified type,Renal insufficiency,Iro n deficiency anemia, unspecified iron deficiency anemia type,Other vitamin B12 deficiency anemia,H/O gastric bypass as directed. 0 07/26/19 18 Active calcitriol (ROCALTROL) 0.25 mcg capsuleIndication s:Anemia, unspecified type,Renal insufficiency,Iro n deficiency anemia, unspecified iron deficiency anemia type,Other vitamin B12 deficiency anemia,H/O gastric bypass TAKE 1 CAPSULE ONCE A DAY ORALLY 90 DAY(S)( TO SOON) 1 07/31/19 18 Active fentaNYL (DURAGESIC) 50 mcg/hrIndications :Anemia, unspecified type,Renal insufficiency,Iro n deficiency anemia, unspecified iron deficiency anemia type,Other vitamin B12 deficiency anemia,H/O gastric bypass 1 Patch every 72 hours. 0 08/07/19 18 Active metoclopramide HCl (REGLAN) 5 mg tabletIndications :Anemia, unspecified type,Renal insufficiency,Iro n deficiency anemia, unspecified iron deficiency anemia type,Other vitamin B12 deficiency anemia,H/O gastric bypass TAKE 1 TABLET BY MOUTH 30 MINUTES BEFORE EACH MEAL AND AT BEDTIME 11 06/17/20 17 Active oxyCODONE-acetami nophen (PERCOCET) 5-325 mg tabletIndications :Anemia, unspecified type,Renal insufficiency,Iro n deficiency anemia, unspecified iron deficiency anemia type,Other vitamin B12 deficiency anemia,H/O gastric bypass TAKE 1 TABLET BY MOUTH EVERY 6 HOURS NEEDED FOR LUMBAR DISC DISEASE 0 07/26/19 18 Active KLOR-CON 10 10 mEq tabletIndications :Anemia, unspecified type,Renal insufficiency,Iro n deficiency anemia, unspecified iron deficiency anemia type,Other vitamin B12 deficiency anemia,H/O gastric bypass Take 10 mEq by mouth twice daily. 11 07/30/19 18 Active primidone (MYSOLINE) 50 mg tabletIndications :Anemia, unspecified type,Renal insufficiency,Iro n deficiency anemia, unspecified iron deficiency anemia type,Other vitamin B12 deficiency anemia,H/O gastric bypass TAKE 4 TABLETS BY MOUTH EVERY DAY AT BEDTIME 4 07/30/19 18 Active B Complex Vitamins capsule Take 1 capsule by mouth once daily. Active Cholecalciferol, Vitamin D3, 2,000 unit cap Take 1.25 Units by mouth. Active rizatriptan (MAXALT) 10 mg tablet TAKE 1 TABLET BY MOUTH AT ONSET OF MIGRAINE-MAY REPEAT IN 2 HOURS- 11 02/26/20 18 Active ferrous sulfate 325 mg (65 mg iron) tablet Take 325 mg by mouth daily with breakfast. Active metoprolol succinate ER (TOPROL XL) 25 mg 24 hr tablet Take 25 mg by mouth once daily. Active liothyronine (CYTOMEL) 5 mcg tablet 04/08/20 19 Active desvenlafaxine ER (PRISTIQ) 50 mg 24 hr tabletIndications :H/O gastric bypass,Other vitamin B12 deficiency anemia,Iron deficiency anemia, unspecified iron deficiency anemia type,CKD (chronic kidney disease) stage 3, GFR 30-59 ml/min (HCC) Take 50 mg by mouth. Active furosemide (LASIX) 40 mg tabletIndications :H/O gastric bypass,Other vitamin B12 deficiency anemia,Iron deficiency anemia, unspecified iron deficiency anemia type,CKD (chronic kidney disease) stage 3, GFR 30-59 ml/min (HCC) Take 40 mg by mouth once daily. 11/04/19 20 Active triamterene-hydro chlorothiazide (MAXZIDE) 75-50 mg per tabletIndications :H/O gastric bypass,Other vitamin B12 deficiency anemia,Iron deficiency anemia, unspecified iron deficiency anemia type,CKD (chronic kidney disease) stage 3, GFR 30-59 ml/min (HCC) Take 1 tablet by mouth once daily. 09/09/19 20 Active predniSONE (DELTASONE) 20 mg tabletIndications :H/O gastric bypass,Other vitamin B12 deficiency anemia,Iron deficiency anemia, unspecified iron deficiency anemia type,CKD (chronic kidney disease) stage 3, GFR 30-59 ml/min (HCC) 10/28/19 20 Active cyanocobalamin 1,000 mcg/mLIndications :H/O gastric bypass,Other vitamin B12 deficiency anemia,Iron deficiency anemia, unspecified iron deficiency anemia type,CKD (chronic kidney disease) stage 3, GFR 30-59 ml/min (HCC) INJECT 1 ML INTRAMUSCULARLY ONCE EVERY MONTH 12 mL 01/13/20 21 Active Active Problems Problem Noted Date Diagnosed Date Chronic obstructive pulmonary disease 03/02/2017 Hypothyroidism 03/02/2017 Other specified anxiety disorders 03/02/2017 Morbid (severe) obesity due to excess calories 0 02/17/2017 Other fatigue 01/13/2017 Fluid overload 12/12/2016 Heart failure 12/12/2016 Intractable migraine without status migrainosus 11/16/2016 Displacement of lumbar inter vertebral disc without myelopathy 08/15/2016 Fibromyalgia 08/15/2016 Spinal stenosis, lumbar aaron on, without neurogenic claudication 08/15/2016 CKD (chronic kidney disease) stage 3, GFR 30-59 ml/min 07/21/2016 Anemia 03/18/2016 Renal insufficiency 03/18/2016 Abnormal weight loss 03/18/2016 Iron deficiency anemia 03/18/2016 Anemia due to vitamin B12 deficiency 03/18/2016 H/O gastric bypass 03/18/2016 Family History Medical History Relation Comments Diabetes Father Hypertension Father No Ocular Disease Father Cancer Mother Cataract Mother Diabetes Mother Glaucoma Mother Heart Mother Hypertension Mother Relation Status Comments Father Mother Social History Tobacco Use Types Packs/Day Years Used Date Smoking Tobacco: Never Smokeless Tobacco: Never Alcohol Use Standard Drinks/Week Comments Yes 0 (1 standard drink = 0.6 oz pur e alcohol) rarely Area Deprivation Index Answer Date Sanket rded National Score (1-100), lower number is lower ri sk Not on file 06/03/2020 State Score (1-10), lower number is lower risk N ot on file 06/03/2020 Data from: https://www.neighborhoodatlas.medicine.[facility].edu/. Last address used for calculation Not on file 06/03/2020 Comments No Sex and Gender Information Value Date Recorded Sex Assigned at Not on file Legal Sex Female 9:35 AM EDT Gender Identity Not on file Sexual Orientation Not on file Last Filed Vital Signs Vital Sign Reading Time Taken Comments Blood Pressure 167/80 11/06/2019 2:32 PM EDT Pulse 69 11/06/2019 2:32 PM EDT Temperature 36.6 C (97.8 F) 11/06/2019 2:32 PM EDT Respiratory Rate 18 11/06/2019 2:32 PM EDT Oxygen Saturation 99% 11/06/2019 2:32 PM EDT Inhaled Oxygen Concentration - - Weight 91.4 kg (201 lb 9.6 oz) 11/06/2019 2:32 P M EDT Height 158.8 cm (5' 2.52 ) 11/06/2019 2:32 PM ED T Body Mass Index 36.26 11/06/2019 2:32 PM EDT Plan of Treatment Health Maintenance Due Date Last Done Comments Anxiety Screening 02/24/1980 Depression Screening 02/24/1980 HIV Screening 02/24/1980 Hepatitis C Screening 02/24/1980 DTaP,Tdap,Td Vaccine (1 - Tdap) 1981 Cervical Cancer Screening [address] Colonography 2007 Cologuard (FIT-DNA) 2007 Colonoscopy 2007 Colorectal Cancer Screening 2007 Fecal Occult Blood 2007 Lipid Screening 2007 Sigmoidoscopy 2007 Shingrix Vaccine (1 of 2) 02/24/2012 Pneumococcal Vaccine: 50+ (2 of 2 - PCV) 04/12/2017 04/12/2016 Diabetes Screening 11/05/2022 11/06/2019, 0 08/26/2019, 07/22/2019, Additional history exists Influenza Vaccine (#1) 2025 04/03/2018, 2016 RSV Vaccine (1 - 1-dose 75+ series) 2037 Procedures Procedure Name Priority Date/Time Associated Diagnosis Comments COMPREHENSIVE METABOLIC PANEL Routine 11/06/2019 2:29 PM EDT Anemia, unspecified type Renal insufficiency H/O gastric bypass from Last 3 Months or Most Recently Relevant to Health Maintenance Results * (ABNORMAL) COMP METABOLIC PANEL (11/06/2019 2:29 PM EDT) Protein, Total 6.0(L) 6.3 - 8.0 g/dL 11/06/2019 2:52 PM EDT [facility] Albumin 4.0 3.9 - 4.9 g/dL 11/06/2019 2:52 PM EDT [facility] Calcium 8.1(L) 8.5 - 10.2 mg/dL 11/06/2019 2:52 PM EDT [facility] Bilirubin, Total 0.2 0.2 - 1.3 mg/dL 11/06/2019 2:52 PM EDT [facility] Alkaline Phosphatase 147(H) 34 - 123 U/L 11/06/2019 2:52 PM EDT [facility] AST 27 13 - 35 U/L 11/06/2019 2:52 PM EDT [facility] Glucose 90 74 - 99 mg/dL 11/06/2019 2:52 PM EDT [facility] Comment: The [place] Diabetes Association (ADA) provides guidance for cutoff values for fasting glucose and random glucose. The ADA defines fasting as no caloric intake for at least 8 hours. Fasting plasma glucose results between 100 to 125 mg/dL indicate increased risk for diabetes (prediabetes). Fasting plasma glucose results greater than or equal to 126 mg/dL meet the criteria for diagnosis of diabetes. In the absence of unequivocal hyperglycemia, results should be confirmed by repeat testing. In a patient with classic symptoms of hyperglycemia or hyperglycemic crisis, random plasma glucose results greater than or equal to 200 mg/dL meet the criteria for diagnosis of diabetes. Reference: Standards of Medical Care in Diabetes 2016, [place] Diabetes Association. Diabetes Care. 2016.39(Suppl 1). BUN 19 7 - 21 mg/dL 11/06/2019 2:52 PM EDT [facility] Creatinine 0.96 0.58 - 0.96 mg/dL 11/06/2019 2:52 PM EDT [facility] Sodium 122(L) 136 - 144 mmol/L 11/06/2019 2:52 PM EDT [facility] Potassium 4.2 3.7 - 5.1 mmol/L 11/06/2019 2:52 PM EDT [facility] Chloride 88(L) 97 - 105 mmol/L 11/06/2019 2:52 PM EDT [facility] CO2 26 22 - 30 mmol/L 11/06/2019 2:52 PM EDT [facility] Anion Gap 8(L) 9 - 18 mmol/L 11/06/2019 2:52 PM EDT [facility] ALT 20 7 - 38 U/L 11/06/2019 2:52 PM EDT [facility] eGFR- >60 11/06/2019 2:52 PM EDT [facility] eGFR-All Other Races 60 . 11/06/2019 2:52 PM EDT [facility] Comment: eGFR (Estimated GFR) Units of measure: mL/min/1.73 meters squared eGFR is derived from the reexpressed MDRD Study equation using the following parameters: serum creatinine, age, gender and race. The creatinine assay has been calibrated to be traceable to IDMS. An eGFR <60 mL/min/1.73m2 for >3 months is consistent with chronic kidney disease. Refer to KDOQI guidelines for clinical interpretation. In patients with unstable renal function, e.g. those with acute kidney injury, the eGFR may not accurately reflect actual GFR. Blood specimen (specimen) BLOOD SPECIMEN / Unknown 11/06/2019 2:29 PM EDT 11/06/2019 2:31 PM EDT Charles Tesfaye MD LABORATORY Final Result [facility] [address] [place] [address] [facility] [address] [place], [place] from Last 3 Months or Most Recently Relevant to Health Maintenance Insurance [facility] DUAL COMPLETE HMO SNP Member Subscriber Plan / Payer ( fective 2018-Present) Name:Mabel Moser Relation to Subscriber:Self Name:Mabel Moser Payer ID:[id number] (NAIC) Group ID:[id number] Type:Medicare Address: [address] [id number] MEDICAID [place] Care Teams Vp Software Engineering Relationship Specialty Start Date End Date Yuri Godinez MD PCP - General Family Medicine 09/24/12
--- OUTSIDE RECORDS SUMMARY | 2025-01-27 13:55 | XMS_ITS | Patient Health Record ---
Author Organization [facility] Address [address] [place] [address] Care Team Providers Care Crusher Feeder Name Role Phone Herbert Yuri Primary Care Provider Therese Diaz ClaLoi kam Unavailable [phone] CatLaurie Unavailable Allergies Allergen (clinical drug ingredient) Drug/Non Drug Allergy documented on EMR Reaction Allergy Type Onset Date Status amoxicillin / clavulanate Augmentin diarrhea Drug Allergy Active Reason For Referral No Information Social History Tobacco Use: Social History Observation [...] Problem Status W/U Status Risk Notes Problem 69979528 Cervical spinal stenosis (M48.02) Active confirmed Problem 586098891 Cervical myelopathy (G95.9) Active confirmed Problem [id number] Primary osteoarthritis of left knee (M17.12) Active confirmed Problem Primary osteoarthritis, left shoulder (M19.012) Active confirmed Problem 043575178 Unspecified nondisplaced fracture of second cervical vertebra, initial encounter for closed fracture (S12.101A) Active confirmed Problem 679566394 Unspecified nondisplaced fracture of second cervical vertebra, subsequent encounter for fracture with routine healing (S12.101D) Active confirmed Problem 021101429703021 Sciatica of left side (M54.32) Active confirmed Problem Fall, initial encounter (W19.XXXA) Active confirmed Problem 16354078 Lumbar stenosis with neurogenic claudication (M48.062) Active confirmed Problem [id number] Tear of left rotator cuff, unspecified tear extent, unspecified whether traumatic (M75.102) Active confirmed Encounters Encounter Location Date Provider Diagnosis [facility] [address] [place] [address] [place] [address] 05/06/2024 Laurie Shelton Tear of left rotator cuff, unspecified tear extent, unspecified whether traumatic M75.102 and Primary osteoarthritis, left shoulder M19.012 Assessments Encounter Date Diagnosis (ICD Code) Assessment Notes Treatment Notes Treatment Clinical Notes Section Notes 05/06/2024 Primary osteoarthritis, left shoulder (ICD-10 - M19.012) Left shoulder osteoarthrit is Left rotator cuff tear 05/06/2024 Tear of left rotator cuff, unspecified tear extent, unspecified whether traumatic (ICD-10 - M75.102) Left shoulder osteoarthrit is Left rotator cuff tear 05/06/2024 Other Today I reviewe d patient's MRI results with her and at this time given her rotator cuff in the setting of glenohumeral osteoarthritis I recommend referral to a surgeon who does reverse total shoulders. Patient is interested in referral and will call when she is ready to make an appointment. Left shoulder osteoarthrit is Left rotator cuff tear Plan Of Treatment Pending Test Test Name Order Date CT Cervical Spine W/O Contrast SCC- KNEE 4 VIEW [id number] 12/18/2023 MRI : Cervical Spine W/O Contrast - 7214 1 10/27/2023 MRI : Cervical Spine W/O Contrast - 7214 1 01/12/2024 Insurance Providers Payer Name Payer Address Payer Phone Subscriber Number Group Number Insured Name Patient Relationship to Insured Coverage Start Date Coverage End Date MEDICARE UHC DUAL COMPLETE [address] [place] [address] [id number] JOSE CLEMENTS Self - [facility] the [facility] [address] [place] [address] [phone] [id number] JOSE CLEMENTS Self - patient is the insured Medical (General) History Medical History History ICD Code High Blood Pressure Heart Attack Heart Failure Asthma Bronchitis Thyroid disease Stomach ulcers Gastric Reflux Irritable bowel syndrome Stroke Seizures Kidney failure Osteoporosis Osteoarthritis Bleeding Disorders Anemia Blood Clots in Legs/Lungs Endometriosis Ovarian Cysts Anxiety Depression Seen a Psychiatrist Healthcare worker Drug Allergies Surgical History Surgery Date(Month/Year) Cholecystectomy (gallbladder removal) 19 80 Hysterectomy 2004 Gastric bypass surgery 1999 Rotator cuff surgery 2022 Back surgery 2022 Knee replacement 2017
--- OUTSIDE RECORDS SUMMARY | 2025-01-27 13:56 | XMS_ITS | Patient Health Record ---
Author Organization The [facility] in [place] Address [address] [place] [address] Care Team Providers Care Child Support Officer Name Role Phone Vinay Godinez Primary Care Provider [phone] Rae Unavailable [phone] Sheridan Love Unavailable [phone] Allergies Allergen (clinical drug ingredient) Drug/Non Drug Allergy documented on EMR Reaction Allergy Type Onset Date Status amoxicillin / clavulanate Augmentin vomiting Drug Allergy Active povidone-iodine Betadine blisters Drug Allergy A ctive Substance with sulfonamide structure and antibacterial mechanism of action (substance) Sulfa Antibiotics vomiting Drug Allergy Active Results Component Value Reference Range Notes CBC AUTO DIFF Reviewed date:02/11/2024 04:53:27 PM Interpretation: Performing Lab: Notes/Report: [facility] , White Blood Count 8.3 4.0-11.0 10 3/uL Red Blood Count 2.76 4.20-5.40 10 6/uL Hemoglobin 8.3 12.0-16.0 g/dL Hematocrit 26.6 36.0-48.0 % Mean Corpuscular Volume 96.4 81.0-99.0 fL Mean Corpuscular Hemoglobin 30.1 26.7-34.0 pg Mean Corpuscular HGB Conc 31.2 29.9-35.2 g/dL Red Cell Distribution Width 15.0 11.0-15.0 % Platelet Count 419 150-450 10 3/uL Mean Platelet Volume 9.0 9.5-13.5 fL Neutrophils Percent Auto 78.4 43.0-75.0 % Lymphocytes Percent Auto 12.8 20.5-60.0 % Monocytes Percent Auto 5.8 1.7-12.0 % Eosinophils Percent Auto 1.6 0.9-7.0 % Basophils Percent Auto 0.6 0.2-2.0 % Immature Granulocytes Pct Auto 0.8 0.0-0.5 % Neutrophils Absolute Auto 6.5 1.4-6.5 10 3/uL Lymphocytes Absolute Auto 1.1 1.2-3.8 10 3/uL Monocytes Absolute Auto 0.5 0.3-0.8 10 3/uL Eosinophils Absolute Auto 0.1 0.0-0.7 10 3/uL Basophils Absolute Auto 0.1 0.0-0.1 10 3/uL Immature Granulocytes Abs Auto 0.07 0.00-0.03 10 3/uL Performing Lab: see note ML - [facility] LB PROF 14(COMP METB) Reviewed date:02/11/2024 04:53:27 PM Interpretation: Performing Lab: Notes/Report: [facility] , Sodium 131 136-145 mmol/L Potassium 4.6 3.5-5.1 mmol/L Chloride 98 98-107 mmol/L Carbon Dioxide 23.4 21.0-32.0 mmol/L Anion Gap 14.2 Glucose 84 74-106 mg/dL Blood Urea Nitrogen 49.0 7.0-18.0 mg/dL Creatinine 1.36 0.55-1.02 mg/dL Estimated GFR ( Catarina 48 >=60 Estimated GFR (Non- Oma 40 >=60 BUN Creatinine Ratio 36.0 Calcium 8.2 8.5-10.1 mg/dL Bilirubin Total 0.2 0.2-1.0 mg/dL Aspartate Amino Transferase 21 15-37 U/L Alanine Aminotransferase 19 14-59 U/L Alkaline Phosphatase 228 46-116 U/L Total Protein 6.4 6.4-8.2 g/dL Albumin Level 2.9 3.4-5.0 g/dL Globulin 3.5 Albumin Globulin Ratio 0.8 Performing Lab: see note ML - [facility] LB Osmolality Reviewed date:02/12/2024 08:53:12 PM Interpretation: Performing Lab: Notes/Report: [facility] , Osmolality 286 280-301 mOsmol/kg Performed at: BN - [facility] [address] [id number] Psychotherapist: Nicolas Arenas MD, Phone: [phone] Performing Lab: see note - [facility] LB Osmolality Reviewed date:02/29/2024 06:05:33 PM Interpretation: Performing Lab: Notes/Report: [facility] , Osmolality 292 280-301 mOsmol/kg Performed at: - [facility] [address] [id number] Psychotherapist: Nicolas Arenas MD, Phone: [phone] Performing Lab: see note - [facility] LB Troponin I High Sensitivity Reviewed date:02/28/2024 07:15:28 PM Interpretation: Performing Lab: Notes/Report: [facility] , Troponin I High Sensitivity 7.4 4.0-51.3 pg/mL CUT-OFF POINTS HAVE BEEN ESTABLISHED BASED ON THE FOURTH UNIVERSAL DEFINITION OF MYOCARDIAL INFARCTION. THE UPPER REFERENCE LIMIT (URL) OF TROPONIN, DEFINED THE 99TH PERCENTILE OF cTnI DISTRIBUTION IN A REFERENCE POPULATION, HAS BEEN CONFIRMED THE DECISION THRESHOLD FOR SD DIAGNOSIS. 99TH PERCENTILE = 51.4 PG/ML NOTE: HIGH-SENSITIVITY TROPONIN ASSAY IS NOT INTENDED TO BE USED IN ISOLATION BUT SHOULD BE INTERPRETED IN CONJUNCTION WITH OTHER DIAGNOSTIC AND CLINICAL INFORMATION. Performing Lab: see note ML - [facility] LB BNP Reviewed date:02/29/2024 06:05:33 PM Interpretation: Performing Lab: Notes/Report: [facility] , NT Pro B Type Natriuretic Pept 802.0 <=900.0 pg/mL Performing Lab: see note ML - [facility] LB CBC AUTO DIFF Reviewed date:02/29/2024 06:05:33 PM Interpretation: Performing Lab: Notes/Report: [facility] , White Blood Count 5.7 4.0-11.0 10 3/uL Red Blood Count 2.60 4.20-5.40 10 6/uL Hemoglobin 7.4 12.0-16.0 g/dL Hematocrit 24.5 36.0-48.0 % Mean Corpuscular Volume 94.2 81.0-99.0 fL Mean Corpuscular Hemoglobin 28.5 26.7-34.0 pg Mean Corpuscular HGB Conc 30.2 29.9-35.2 g/dL Red Cell Distribution Width 14.6 11.0-15.0 % Platelet Count 240 150-450 10 3/uL Mean Platelet Volume 8.9 9.5-13.5 fL Neutrophils Percent Auto 58.9 43.0-75.0 % Lymphocytes Percent Auto 25.8 20.5-60.0 % Monocytes Percent Auto 10.2 1.7-12.0 % Eosinophils Percent Auto 4.2 0.9-7.0 % Basophils Percent Auto 0.5 0.2-2.0 % Immature Granulocytes Pct Auto 0.4 0.0-0.5 % Neutrophils Absolute Auto 3.4 1.4-6.5 10 3/uL Lymphocytes Absolute Auto 1.5 1.2-3.8 10 3/uL Monocytes Absolute Auto 0.6 0.3-0.8 10 3/uL Eosinophils Absolute Auto 0.2 0.0-0.7 10 3/uL Basophils Absolute Auto 0.0 0.0-0.1 10 3/uL Immature Granulocytes Abs Auto 0.02 0.00-0.03 10 3/uL Performing Lab: see note ML - [facility] LB PROF 14(COMP METB) Reviewed date:02/29/2024 06:05:33 PM Interpretation: Performing Lab: Notes/Report: [facility] , Sodium 134 136-145 mmol/L Potassium 4.9 3.5-5.1 mmol/L Chloride 100 98-107 mmol/L Carbon Dioxide 26.0 21.0-32.0 mmol/L Anion Gap 12.9 Glucose 102 74-106 mg/dL Blood Urea Nitrogen 53.0 7.0-18.0 mg/dL Creatinine 1.59 0.55-1.02 mg/dL Estimated GFR ( Catarina 40 >=60 Estimated GFR (Non- Oma 33 >=60 BUN Creatinine Ratio 33.3 Calcium 8.3 8.5-10.1 mg/dL Bilirubin Total 0.2 0.2-1.0 mg/dL Aspartate Amino Transferase 22 15-37 U/L Alanine Aminotransferase 21 14-59 U/L Alkaline Phosphatase 211 46-116 U/L Total Protein 5.7 6.4-8.2 g/dL Albumin Level 2.7 3.4-5.0 g/dL Globulin 3.0 Albumin Globulin Ratio 0.9 Performing Lab: see note ML - [facility] LB Second ABO/RH Type Reviewed date:02/29/2024 06:05:33 PM Interpretation: Performing Lab: Notes/Report: [facility] , Blood Type #2 A Positive Type and Screen Reviewed date:02/29/2024 06:05:33 PM Interpretation: Performing Lab: Notes/Report: [facility] , Blood Type A Positive Antibody Screen NEGATIVE Osmolality Reviewed date:03/07/2024 09:26:42 PM Interpretation: Performing Lab: Notes/Report: [facility] , Osmolality 294 280-301 mOsmol/kg Performed at: [address] [id number] Psychotherapist: Nicolas Arenas MD, Phone: [phone] Performing Lab: see note - [facility] LB PROF 14(COMP METB) Reviewed date:03/27/2024 09:16:56 PM Interpretation: Performing Lab: Notes/Report: [facility] , Sodium 132 136-145 mmol/L Potassium 4.3 3.5-5.1 mmol/L Chloride 98 98-107 mmol/L Carbon Dioxide 24.0 21.0-32.0 mmol/L Anion Gap 14.3 Glucose 89 74-106 mg/dL Blood Urea Nitrogen 57.0 7.0-18.0 mg/dL Creatinine 1.73 0.55-1.02 mg/dL Estimated GFR ( Catarina 36 >=60 mL/min/1.73m 2 Estimated GFR (Non- Oma 30 >=60 mL/min/1.73m 2 BUN Creatinine Ratio 32.9 Calcium 8.8 8.5-10.1 mg/dL Bilirubin Total 0.2 0.2-1.0 mg/dL Aspartate Amino Transferase 34 15-37 U/L Alanine Aminotransferase 27 14-59 U/L Alkaline Phosphatase 291 46-116 U/L Total Protein 6.7 6.4-8.2 g/dL Albumin Level 3.3 3.4-5.0 g/dL Globulin 3.4 Albumin Globulin Ratio 1.0 Performing Lab: see note - [facility] LB Osmolality Reviewed date:04/01/2024 09:32:13 AM Interpretation: Performing Lab: Notes/Report: [facility] , Osmolality 288 280-301 mOsmol/kg Performed at: BN - [facility] [address] [id number] Psychotherapist: Nicolas Arenas MD, Phone: [phone] Performing Lab: see note - [facility] LB MR shoulder LT w con Reviewed date:04/01/2024 07:43:07 PM Interpretation: Performing Lab: Notes/Report: Source Facility: [place] [address] Magnetic Resonance Report Signed Patient: JOSE MOSER MR#: [id number] : 1960 Acct:[id number] Age/Sex: 64 / F ADM Date: 03/29/24 Loc: MRI Attending Dr: Angle Godinez M.D. Ordering Physician: Angle Godinez M.D. Date of Service: 03/29/24 Procedure(s): MR shoulder LT w con Accession Number(s): [id number] cc: Angle Godinez M.D. [place] [address] Patient Name: JOSE MOSER MRN: [id number] date: 1960 Sex: F Assigned Patient Location: MRI Current Patient Location: MRI Accession/Order Number: [id number] Exam Date: 03/29/2024 10:00 Report Date: 03/29/2024 15:51 At the request of: ANGLE GODINEZ Procedure: MR shoulder LT w con EXAMINATION: MR shoulder RT w con HISTORY: Left Shoulder Pain COMPARISON: No relevant comparison available. TECHNIQUE: A variety of imaging planes and parameters were utilized for visualization of suspected pathology. Images were performed with intra-articular contrast. FINDINGS: ROTATOR CUFF REGION CUFF TENDONS: Tear or retraction of the supraspinatus tendon. Suspect tear of the subscapularis tendon allowing medial displacement of the biceps tendon. CUFF MUSCLES: No significant atrophy. DELTOID: Normal. No significant atrophy or tear. LONG BICEPS TENDON: Suspect medial displacement and possible marked attrition. LABRUM/BICEPS ANCHOR SUPERIOR: No visible labral tear or biceps anchor pathology. ANTERIOR/INFERIOR: No visible tear or attrition. POSTERIOR: No posterior labrum abnormality. CAPSULE ANTERIOR/INFERIOR: No visible capsular laxity or thickening. Type I origin of the middle glenohumeral ligament. POSTERIOR: No visible capsular laxity or thickening. 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 AC LIGAMENTS: No appreciable disruption. CC LIGAMENTS: No appreciable disruption. ACROMION: Normal horizontal (Type I) configuration. SUBACROMIAL BURSA: Moderate amount of fluid within the bursa. HYALINE CARTILAGE: Thinning. OTHER BONES: No appreciable fracture or marrow edema. OTHER OBSERVATIONS: No other appreciable abnormality. MR/MR shoulder LT w con IMPRESSION: 1. Examination is significantly limited by patient motion and positioning. 2. Tear and retraction supraspinous tendon and suspected tear of the subscapularis tendon allowing medial subluxation of the biceps tendon. There may be marked attrition of the biceps tendon. 3. Marked degenerative changes of acromioclavicular joint. 4. Cartilage thinning throughout. Electronically authenticated by: ANG DAVENPORT Date: 03/29/2024 15:51 Dictated By: Ang Davenport M.D. Signed By: 04/01/24 1448 DD/ 1551 TD/TT: Bus Starter: [place] [address] Magnetic Resonance Report Signed Patient: ARSLAN MOSER MR#: [id number] : 1960 Acct:[id number] Age/Sex: 64 / F ADM Date: 03/29/24 Loc: MRI Attending Dr: Charlette Godinez M.D. Ordering Physician: Angle Godinez M.D. Date of Service: 03/29/24 Procedure(s): MR allyssa bauer LT w con Accession Number(s): [id number] cc: Angle Godinez M.D. [place] [id number] Patient Name: JOSE MOSER MRN: [id number] date: 1960 Sex: F Assigned Patient Location: MRI Current Patient Loca tion: MRI Accession/Order Numb er: [id number] Exam Date: 10/04/202 4 10:00 Report Date: 03/29/2024 15:51 At the request of: ANGLE GODINEZ Procedure: MR should er LT w con EXAMINATION: MR dhillon ldrobert RT w con HISTORY: Left Should er Pain COMPARISON: No relev ant comparison available. TECHNIQUE: A variety of imaging planes and parameters were utilized for visualization of suspected pathology. Images were performed with intra-articular contrast. FINDINGS: ROTATOR CUFF REGION CUFF TENDONS: Tear o r retraction of the supraspinatus tendon. Suspect tear of the subscapularis te ndon allowing medial displacement of the biceps tendon. CUFF MUSCLES: No significant atrophy. DELTOID: Normal. No significant atrophy or tear. LONG BICEPS TENDON: Suspect medial displacement and possible marked attrition. LABRUM/BICEPS ANCHOR SUPERIOR: No visible labral tear or biceps anchor pathology. ANTERIOR/INFERIOR: N o visible tear or attrition. POSTERIOR: No material mixer ior labrum abnormality. CAPSULE ANTERIOR/INFERIOR: N o visible capsular laxity or thickening. Type I origin of the middle glenohume ral ligament. POSTERIOR: No visibl e capsular laxity or thickening. AC JOINT REGION AC JOINT: Severe osteoarthropathy with moderate to severe narrowing of the underlying coracoacr omial arch. AC LIGAMENTS: No appreciable disruption. CC LIGAMENTS: No appreciable disruption. ACROMION: Normal horizontal (Type I) configuration. SUBACROMIAL BURSA: Moderate amount of fluid within the bursa. HYALINE CARTILAGE: Thinning. OTHER BONES: No appreciable fracture or marrow edema. OTHER OBSERVATIONS: No other appreciable abnormality. M R/MR shoulder LT w con IMPRESSION: 1. Examination is significantly limited by patient motion and positioning. 2. Tear and retracti on supraspinous tendon and suspected tear of the subscapularis tendon allowing medial subluxation of the biceps tendon. There may be marked attrit ion of the biceps tendon. 3. Marked degenerati ve changes of acromioclavicular joint. 4. Cartilage thinnin g throughout. Electronically authenticated by: ANG DAVENPORT Date: 03/29/2024 15:51 Dictated By: Ang Davenport M.D. Signed By: 04/01/24 1448 DD/ 1551 TD/TT: Bus Starter: OLEGARIO PACHECO Reviewed date:04/01/2024 09:32:13 AM Interpretation: Performing Lab: Notes/Report: [facility] , White Blood Count 6.9 4.0-11.0 10 3/uL Red Blood Count 3.18 4.20-5.40 10 6/uL Hemoglobin 9.2 12.0-16.0 g/dL Hematocrit 30.0 36.0-48.0 % Mean Corpuscular Volume 94.3 81.0-99.0 fL Mean Corpuscular Hemoglobin 28.9 26.7-34.0 pg Mean Corpuscular HGB Conc 30.7 29.9-35.2 g/dL Red Cell Distribution Width 14.9 11.0-15.0 % Platelet Count 264 150-450 10 3/uL Mean Platelet Volume 8.9 9.5-13.5 fL Neutrophils Percent Auto 68.7 43.0-75.0 % Lymphocytes Percent Auto 18.8 20.5-60.0 % Monocytes Percent Auto 8.2 1.7-12.0 % Eosinophils Percent Auto 3.5 0.9-7.0 % Basophils Percent Auto 0.4 0.2-2.0 % Immature Granulocytes Pct Auto 0.4 0.0-0.5 % Neutrophils Absolute Auto 4.7 1.4-6.5 10 3/uL Lymphocytes Absolute Auto 1.3 1.2-3.8 10 3/uL Monocytes Absolute Auto 0.6 0.3-0.8 10 3/uL Eosinophils Absolute Auto 0.2 0.0-0.7 10 3/uL Basophils Absolute Auto 0.0 0.0-0.1 10 3/uL Immature Granulocytes Abs Auto 0.03 0.00-0.03 10 3/uL Performing Lab: see note ML - [facility] LB PROF CHEM 8 (BAS METB) Reviewed date:04/01/2024 09:32:13 AM Interpretation: Performing Lab: Notes/Report: [facility] , Sodium 135 136-145 mmol/L Potassium 3.9 3.5-5.1 mmol/L Chloride 99 98-107 mmol/L Carbon Dioxide 25.5 21.0-32.0 mmol/L Anion Gap 14.4 Glucose 142 74-106 mg/dL Blood Urea Nitrogen 57.0 7.0-18.0 mg/dL Creatinine 1.81 0.55-1.02 mg/dL Estimated GFR ( Catarina 34 >=60 mL/min/1.73m 2 Estimated GFR (Non- Oma 28 >=60 mL/min/1.73m 2 BUN Creatinine Ratio 31.5 Calcium 8.2 8.5-10.1 mg/dL Performing Lab: see note ML - [facility] LB CBC AUTO DIFF Reviewed date:04/01/2024 09:32:13 AM Interpretation: Performing Lab: Notes/Report: [facility] , White Blood Count 6.0 4.0-11.0 10 3/uL Red Blood Count 2.80 4.20-5.40 10 6/uL Hemoglobin 8.1 12.0-16.0 g/dL Hematocrit 26.3 36.0-48.0 % Mean Corpuscular Volume 93.9 81.0-99.0 fL Mean Corpuscular Hemoglobin 28.9 26.7-34.0 pg Mean Corpuscular HGB Conc 30.8 29.9-35.2 g/dL Red Cell Distribution Width 15.1 11.0-15.0 % Platelet Count 231 150-450 10 3/uL Mean Platelet Volume 8.7 9.5-13.5 fL Neutrophils Percent Auto 57.7 43.0-75.0 % Lymphocytes Percent Auto 25.5 20.5-60.0 % Monocytes Percent Auto 11.7 1.7-12.0 % Eosinophils Percent Auto 4.3 0.9-7.0 % Basophils Percent Auto 0.3 0.2-2.0 % Immature Granulocytes Pct Auto 0.5 0.0-0.5 % Neutrophils Absolute Auto 3.5 1.4-6.5 10 3/uL Lymphocytes Absolute Auto 1.5 1.2-3.8 10 3/uL Monocytes Absolute Auto 0.7 0.3-0.8 10 3/uL Eosinophils Absolute Auto 0.3 0.0-0.7 10 3/uL Basophils Absolute Auto 0.0 0.0-0.1 10 3/uL Immature Granulocytes Abs Auto 0.03 0.00-0.03 10 3/uL Performing Lab: see note ML - [facility] LB PROF CHEM 8 (BAS METB) Reviewed date:04/01/2024 09:32:13 AM Interpretation: Performing Lab: Notes/Report: [facility] , Sodium 131 136-145 mmol/L Potassium 4.2 3.5-5.1 mmol/L Chloride 99 98-107 mmol/L Carbon Dioxide 29.0 21.0-32.0 mmol/L Anion Gap 7.2 Glucose 96 74-106 mg/dL Blood Urea Nitrogen 57.0 7.0-18.0 mg/dL Creatinine 1.92 0.55-1.02 mg/dL Estimated GFR ( Catarina 32 >=60 mL/min/1.73m 2 Estimated GFR (Non- Oma 26 >=60 mL/min/1.73m 2 BUN Creatinine Ratio 29.7 Calcium 8.0 8.5-10.1 mg/dL Performing Lab: see note ML - [facility] LB Osmolality Reviewed date:07/04/2024 12:33:49 PM Interpretation: Performing Lab: Notes/Report: [facility] , Osmolality 285 280-301 mOsmol/kg Performed at: [facility] [address] [id number] Psychotherapist: Nicolas Arenas MD, Phone: [phone] Performing Lab: see note - [facility] LB CBC AUTO DIFF Reviewed date:04/16/2024 04:01:23 PM Interpretation: Performing Lab: Notes/Report: [facility] , White Blood Count 7.7 4.0-11.0 10 3/uL Red Blood Count 3.28 4.20-5.40 10 6/uL Hemoglobin 9.3 12.0-16.0 g/dL Hematocrit 30.4 36.0-48.0 % Mean Corpuscular Volume 92.7 81.0-99.0 fL Mean Corpuscular Hemoglobin 28.4 26.7-34.0 pg Mean Corpuscular HGB Conc 30.6 29.9-35.2 g/dL Red Cell Distribution Width 15.0 11.0-15.0 % Platelet Count 316 150-450 10 3/uL Mean Platelet Volume 8.9 9.5-13.5 fL Neutrophils Percent Auto 77.4 43.0-75.0 % Lymphocytes Percent Auto 11.3 20.5-60.0 % Monocytes Percent Auto 7.4 1.7-12.0 % Eosinophils Percent Auto 3.0 0.9-7.0 % Basophils Percent Auto 0.3 0.2-2.0 % Immature Granulocytes Pct Auto 0.6 0.0-0.5 % Neutrophils Absolute Auto 6.0 1.4-6.5 10 3/uL Lymphocytes Absolute Auto 0.9 1.2-3.8 10 3/uL Monocytes Absolute Auto 0.6 0.3-0.8 10 3/uL Eosinophils Absolute Auto 0.2 0.0-0.7 10 3/uL Basophils Absolute Auto 0.0 0.0-0.1 10 3/uL Immature Granulocytes Abs Auto 0.05 0.00-0.03 10 3/uL Performing Lab: see note [facility] LB PROF 14(COMP METB) Reviewed date:04/16/2024 04:01:23 PM Interpretation: Performing Lab: Notes/Report: [facility] , Sodium 138 136-145 mmol/L Potassium 4.5 3.5-5.1 mmol/L Chloride 103 98-107 mmol/L Carbon Dioxide 26.4 21.0-32.0 mmol/L Anion Gap 13.1 Glucose 89 74-106 mg/dL Blood Urea Nitrogen 48.0 7.0-18.0 mg/dL Creatinine 1.50 0.55-1.02 mg/dL Estimated GFR ( Catarina 43 >=60 mL/min/1.73m 2 Estimated GFR (Non- Oma 35 >=60 mL/min/1.73m 2 BUN Creatinine Ratio 32.0 Calcium 8.6 8.5-10.1 mg/dL Bilirubin Total 0.2 0.2-1.0 mg/dL Aspartate Amino Transferase 23 15-37 U/L Alanine Aminotransferase 19 14-59 U/L Alkaline Phosphatase 271 46-116 U/L Total Protein 6.8 6.4-8.2 g/dL Albumin Level 3.1 3.4-5.0 g/dL Globulin 3.7 Albumin Globulin Ratio 0.8 Performing Lab: see note - [facility] LB Osmolality Reviewed date:04/24/2024 06:21:05 PM Interpretation: Performing Lab: Notes/Report: [facility] , Osmolality 288 280-301 mOsmol/kg Performed at: [facility] [address] [id number] Psychotherapist: Nicolas Arenas MD, Phone: [phone] Performing Lab: see note - [facility] LB CBC AUTO DIFF Reviewed date:04/28/2024 10:46:46 AM Interpretation: Performing Lab: Notes/Report: [facility] , White Blood Count 6.8 4.0-11.0 10 3/uL Red Blood Count 2.88 4.20-5.40 10 6/uL Hemoglobin 8.1 12.0-16.0 g/dL Hematocrit 26.4 36.0-48.0 % Mean Corpuscular Volume 91.7 81.0-99.0 fL Mean Corpuscular Hemoglobin 28.1 26.7-34.0 pg Mean Corpuscular HGB Conc 30.7 29.9-35.2 g/dL Red Cell Distribution Width 14.7 11.0-15.0 % Platelet Count 236 150-450 10 3/uL Mean Platelet Volume 9.7 9.5-13.5 fL Neutrophils Percent Auto 73.1 43.0-75.0 % Lymphocytes Percent Auto 12.4 20.5-60.0 % Monocytes Percent Auto 10.2 1.7-12.0 % Eosinophils Percent Auto 3.4 0.9-7.0 % Basophils Percent Auto 0.3 0.2-2.0 % Immature Granulocytes Pct Auto 0.6 0.0-0.5 % Neutrophils Absolute Auto 5.0 1.4-6.5 10 3/uL Lymphocytes Absolute Auto 0.8 1.2-3.8 10 3/uL Monocytes Absolute Auto 0.7 0.3-0.8 10 3/uL Eosinophils Absolute Auto 0.2 0.0-0.7 10 3/uL Basophils Absolute Auto 0.0 0.0-0.1 10 3/uL Immature Granulocytes Abs Auto 0.04 0.00-0.03 10 3/uL Performing Lab: see note ML - [facility] LB PROF 14(COMP METB) Reviewed date:04/28/2024 10:46:46 AM Interpretation: Performing Lab: Notes/Report: [facility] , Sodium 134 136-145 mmol/L Potassium 3.5 3.5-5.1 mmol/L Chloride 97 98-107 mmol/L Carbon Dioxide 25.0 21.0-32.0 mmol/L Anion Gap 15.5 Glucose 96 74-106 mg/dL Blood Urea Nitrogen 70.0 7.0-18.0 mg/dL Creatinine 2.44 0.55-1.02 mg/dL Estimated GFR ( Catarina 24 >=60 mL/min/1.73m 2 Estimated GFR (Non- Oma 20 >=60 mL/min/1.73m 2 BUN Creatinine Ratio 28.7 Calcium 8.2 8.5-10.1 mg/dL Bilirubin Total 0.4 0.2-1.0 mg/dL Aspartate Amino Transferase 25 15-37 U/L Alanine Aminotransferase 20 14-59 U/L Alkaline Phosphatase 239 46-116 U/L Total Protein 6.7 6.4-8.2 g/dL Albumin Level 3.2 3.4-5.0 g/dL Globulin 3.5 Albumin Globulin Ratio 0.9 Performing Lab: see note - [facility] LB Osmolality Reviewed date:05/08/2024 07:33:10 PM Interpretation: Performing Lab: Notes/Report: [facility] , Osmolality 288 280-301 mOsmol/kg Performed at: - [facility] [address] [id number] Psychotherapist: Nicolas Arenas MD, Phone: [phone] Performing Lab: see note - [facility] LB FERRITIN Reviewed date:04/28/2024 10:46:46 AM Interpretation: Performing Lab: Notes/Report: [facility] , Ferritin 20.0 8.0-252.0 ng/mL Performing Lab: see note [facility] LB PROF 14(COMP METB) Reviewed date:05/12/2024 01:25:34 PM Interpretation: Performing Lab: Notes/Report: [facility] , Sodium 136 136-145 mmol/L Potassium 3.6 3.5-5.1 mmol/L Chloride 98 98-107 mmol/L Carbon Dioxide 26.4 21.0-32.0 mmol/L Anion Gap 15.2 Glucose 82 74-106 mg/dL Blood Urea Nitrogen 58.0 7.0-18.0 mg/dL Creatinine 2.01 0.55-1.02 mg/dL Estimated GFR ( Catarina 30 >=60 mL/min/1.73m 2 Estimated GFR (Non- Oma 25 >=60 mL/min/1.73m 2 BUN Creatinine Ratio 28.9 Calcium 7.9 8.5-10.1 mg/dL Bilirubin Total 0.2 0.2-1.0 mg/dL Aspartate Amino Transferase 26 15-37 U/L Alanine Aminotransferase 18 14-59 U/L Alkaline Phosphatase 240 46-116 U/L Total Protein 6.8 6.4-8.2 g/dL Albumin Level 3.0 3.4-5.0 g/dL Globulin 3.8 Albumin Globulin Ratio 0.8 Performing Lab: see note [facility] LB PROF 14(COMP METB) Reviewed date:05/14/2024 08:03:43 PM Interpretation: Performing Lab: Notes/Report: [facility] , Sodium 134 136-145 mmol/L Potassium 4.4 3.5-5.1 mmol/L Chloride 100 98-107 mmol/L Carbon Dioxide 23.7 21.0-32.0 mmol/L Anion Gap 14.7 Glucose 81 74-106 mg/dL Blood Urea Nitrogen 53.0 7.0-18.0 mg/dL Creatinine 1.74 0.55-1.02 mg/dL Estimated GFR ( Catarina 36 >=60 mL/min/1.73m 2 Estimated GFR (Non- Oma 30 >=60 mL/min/1.73m 2 BUN Creatinine Ratio 30.5 Calcium 8.5 8.5-10.1 mg/dL Bilirubin Total 0.2 0.2-1.0 mg/dL Aspartate Amino Transferase 26 15-37 U/L Alanine Aminotransferase 18 14-59 U/L Alkaline Phosphatase 235 46-116 U/L Total Protein 6.9 6.4-8.2 g/dL Albumin Level 3.2 3.4-5.0 g/dL Globulin 3.7 Albumin Globulin Ratio 0.9 Performing Lab: see note - [facility] LB Osmolality Reviewed date:05/30/2024 12:43:32 PM Interpretation: Performing Lab: Notes/Report: [facility] , Osmolality 290 280-301 mOsmol/kg Performed at: [address] [id number] Psychotherapist: Nicolas Arenas MD, Phone: [phone] Performing Lab: see note [facility] LB Osmolality Reviewed date:06/17/2024 07:08:27 PM Interpretation: Performing Lab: Notes/Report: [facility] , Osmolality 296 280-301 mOsmol/kg Performed at: BN - [facility] [address] [id number] Psychotherapist: Nicolas Arenas MD, Phone: [phone] Performing Lab: see note - [facility] LB CBC AUTO DIFF Reviewed date:07/02/2024 03:26:48 PM Interpretation: Performing Lab: Notes/Report: [facility] , White Blood Count 4.2 4.0-11.0 10 3/uL Red Blood Count 3.56 4.20-5.40 10 6/uL Hemoglobin 10.4 12.0-16.0 g/dL Hematocrit 33.2 36.0-48.0 % Mean Corpuscular Volume 93.3 81.0-99.0 fL Mean Corpuscular Hemoglobin 29.2 26.7-34.0 pg Mean Corpuscular HGB Conc 31.3 29.9-35.2 g/dL Red Cell Distribution Width 16.4 11.0-15.0 % Platelet Count 238 150-450 10 3/uL Mean Platelet Volume 9.5 9.5-13.5 fL Neutrophils Percent Auto 56.9 43.0-75.0 % Lymphocytes Percent Auto 28.8 20.5-60.0 % Monocytes Percent Auto 11.0 1.7-12.0 % Eosinophils Percent Auto 2.4 0.9-7.0 % Basophils Percent Auto 0.2 0.2-2.0 % Immature Granulocytes Pct Auto 0.7 0.0-0.5 % Neutrophils Absolute Auto 2.4 1.4-6.5 10 3/uL Lymphocytes Absolute Auto 1.2 1.2-3.8 10 3/uL Monocytes Absolute Auto 0.5 0.3-0.8 10 3/uL Eosinophils Absolute Auto 0.1 0.0-0.7 10 3/uL Basophils Absolute Auto 0.0 0.0-0.1 10 3/uL Immature Granulocytes Abs Auto 0.03 0.00-0.03 10 3/uL Performing Lab: see note ML - [facility] LB CBC AUTO DIFF Reviewed date:07/09/2024 03:58:21 PM Interpretation: Performing Lab: Notes/Report: [facility] , White Blood Count 9.9 4.0-11.0 10 3/uL Red Blood Count 3.97 4.20-5.40 10 6/uL Hemoglobin 11.5 12.0-16.0 g/dL Hematocrit 37.5 36.0-48.0 % Mean Corpuscular Volume 94.5 81.0-99.0 fL Mean Corpuscular Hemoglobin 29.0 26.7-34.0 pg Mean Corpuscular HGB Conc 30.7 29.9-35.2 g/dL Red Cell Distribution Width 16.5 11.0-15.0 % Platelet Count 378 150-450 10 3/uL Mean Platelet Volume 8.9 9.5-13.5 fL Neutrophils Percent Auto 70.6 43.0-75.0 % Lymphocytes Percent Auto 17.7 20.5-60.0 % Monocytes Percent Auto 7.8 1.7-12.0 % Eosinophils Percent Auto 1.9 0.9-7.0 % Basophils Percent Auto 0.6 0.2-2.0 % Immature Granulocytes Pct Auto 1.4 0.0-0.5 % Neutrophils Absolute Auto 7.0 1.4-6.5 10 3/uL Lymphocytes Absolute Auto 1.8 1.2-3.8 10 3/uL Monocytes Absolute Auto 0.8 0.3-0.8 10 3/uL Eosinophils Absolute Auto 0.2 0.0-0.7 10 3/uL Basophils Absolute Auto 0.1 0.0-0.1 10 3/uL Immature Granulocytes Abs Auto 0.14 0.00-0.03 10 3/uL Performing Lab: see note ML - [facility] LB PROF 14(COMP METB) Reviewed date:07/09/2024 03:58:21 PM Interpretation: Performing Lab: Notes/Report: [facility] , Sodium 134 136-145 mmol/L Potassium 4.8 3.5-5.1 mmol/L Chloride 101 98-107 mmol/L Carbon Dioxide 23.0 21.0-32.0 mmol/L Anion Gap 14.8 Glucose 83 74-106 mg/dL Blood Urea Nitrogen 48.0 7.0-18.0 mg/dL Creatinine 2.26 0.55-1.02 mg/dL Estimated GFR ( Catarina 27 >=60 mL/min/1.73m 2 Estimated GFR (Non- Oma 22 >=60 mL/min/1.73m 2 BUN Creatinine Ratio 21.2 Calcium 8.4 8.5-10.1 mg/dL Bilirubin Total 0.2 0.2-1.0 mg/dL Aspartate Amino Transferase 19 15-37 U/L Alanine Aminotransferase 18 14-59 U/L Alkaline Phosphatase 317 46-116 U/L Total Protein 7.2 6.4-8.2 g/dL Albumin Level 3.5 3.4-5.0 g/dL Globulin 3.7 Albumin Globulin Ratio 0.9 Performing Lab: see note [facility] LB PROF 14(COMP METB) Reviewed date:07/18/2024 05:32:07 PM Interpretation: Performing Lab: Notes/Report: [facility] , Sodium 137 136-145 mmol/L Potassium 4.4 3.5-5.1 mmol/L Chloride 102 98-107 mmol/L Carbon Dioxide 24.3 21.0-32.0 mmol/L Anion Gap 15.1 Glucose 79 74-106 mg/dL Blood Urea Nitrogen 51.0 7.0-18.0 mg/dL Creatinine 1.77 0.55-1.02 mg/dL Estimated GFR ( Catarina 35 >=60 mL/min/1.73m 2 Estimated GFR (Non- Oma 29 >=60 mL/min/1.73m 2 BUN Creatinine Ratio 28.8 Calcium 8.4 8.5-10.1 mg/dL Bilirubin Total 0.1 0.2-1.0 mg/dL Aspartate Amino Transferase 25 15-37 U/L Alanine Aminotransferase 16 14-59 U/L Alkaline Phosphatase 271 46-116 U/L Total Protein 6.8 6.4-8.2 g/dL Albumin Level 3.1 3.4-5.0 g/dL Globulin 3.7 Albumin Globulin Ratio 0.8 Performing Lab: see note ML - [facility] LB Osmolality Reviewed date:07/21/2024 12:00:58 PM Interpretation: Performing Lab: Notes/Report: [facility] , Osmolality 290 280-301 mOsmol/kg Performed at: [address] [id number] Psychotherapist: Nicolas Arenas MD, Phone: [phone] Performing Lab: see note - [facility] LB CBC AUTO DIFF Reviewed date:07/27/2024 04:09:36 PM Interpretation: Performing Lab: Notes/Report: [facility] , White Blood Count 6.5 4.0-11.0 10 3/uL Red Blood Count 3.68 4.20-5.40 10 6/uL Hemoglobin 11.0 12.0-16.0 g/dL Hematocrit 35.5 36.0-48.0 % Mean Corpuscular Volume 96.5 81.0-99.0 fL Mean Corpuscular Hemoglobin 29.9 26.7-34.0 pg Mean Corpuscular HGB Conc 31.0 29.9-35.2 g/dL Red Cell Distribution Width 15.6 11.0-15.0 % Platelet Count 295 150-450 10 3/uL Mean Platelet Volume 8.9 9.5-13.5 fL Neutrophils Percent Auto 70.6 43.0-75.0 % Lymphocytes Percent Auto 18.3 20.5-60.0 % Monocytes Percent Auto 7.2 1.7-12.0 % Eosinophils Percent Auto 2.8 0.9-7.0 % Basophils Percent Auto 0.5 0.2-2.0 % Immature Granulocytes Pct Auto 0.6 0.0-0.5 % Neutrophils Absolute Auto 4.6 1.4-6.5 10 3/uL Lymphocytes Absolute Auto 1.2 1.2-3.8 10 3/uL Monocytes Absolute Auto 0.5 0.3-0.8 10 3/uL Eosinophils Absolute Auto 0.2 0.0-0.7 10 3/uL Basophils Absolute Auto 0.0 0.0-0.1 10 3/uL Immature Granulocytes Abs Auto 0.04 0.00-0.03 10 3/uL Performing Lab: see note ML - [facility] LB PROF 14(COMP METB) Reviewed date:07/27/2024 04:09:36 PM Interpretation: Performing Lab: Notes/Report: [facility] , Sodium 136 136-145 mmol/L Potassium 4.4 3.5-5.1 mmol/L Chloride 103 98-107 mmol/L Carbon Dioxide 24.4 21.0-32.0 mmol/L Anion Gap 13.0 Glucose 85 74-106 mg/dL Blood Urea Nitrogen 45.0 7.0-18.0 mg/dL Creatinine 1.84 0.55-1.02 mg/dL Estimated GFR ( Catarina 34 >=60 mL/min/1.73m 2 Estimated GFR (Non- Oma 28 >=60 mL/min/1.73m 2 BUN Creatinine Ratio 24.5 Calcium 8.4 8.5-10.1 mg/dL Bilirubin Total 0.1 0.2-1.0 mg/dL Aspartate Amino Transferase 25 15-37 U/L Alanine Aminotransferase 17 14-59 U/L Alkaline Phosphatase 280 46-116 U/L Total Protein 7.0 6.4-8.2 g/dL Albumin Level 3.3 3.4-5.0 g/dL Globulin 3.7 Albumin Globulin Ratio 0.9 Performing Lab: see note ML - [facility] LB Osmolality Reviewed date:07/29/2024 07:44:52 PM Interpretation: Performing Lab: Notes/Report: [facility] , Osmolality 290 280-301 mOsmol/kg Performed at: - [facility] [address] [id number] Psychotherapist: Nicolas Arenas MD, Phone: [phone] Performing Lab: see note - [facility] LB CBC AUTO DIFF Reviewed date:08/04/2024 11:09:08 AM Interpretation: Performing Lab: Notes/Report: [facility] , White Blood Count 6.4 4.0-11.0 10 3/uL Red Blood Count 3.41 4.20-5.40 10 6/uL Hemoglobin 10.2 12.0-16.0 g/dL Hematocrit 32.6 36.0-48.0 % Mean Corpuscular Volume 95.6 81.0-99.0 fL Mean Corpuscular Hemoglobin 29.9 26.7-34.0 pg Mean Corpuscular HGB Conc 31.3 29.9-35.2 g/dL Red Cell Distribution Width 15.4 11.0-15.0 % Platelet Count 273 150-450 10 3/uL Mean Platelet Volume 9.3 9.5-13.5 fL Neutrophils Percent Auto 76.5 43.0-75.0 % Lymphocytes Percent Auto 13.4 20.5-60.0 % Monocytes Percent Auto 7.3 1.7-12.0 % Eosinophils Percent Auto 1.9 0.9-7.0 % Basophils Percent Auto 0.3 0.2-2.0 % Immature Granulocytes Pct Auto 0.6 0.0-0.5 % Neutrophils Absolute Auto 4.9 1.4-6.5 10 3/uL Lymphocytes Absolute Auto 0.9 1.2-3.8 10 3/uL Monocytes Absolute Auto 0.5 0.3-0.8 10 3/uL Eosinophils Absolute Auto 0.1 0.0-0.7 10 3/uL Basophils Absolute Auto 0.0 0.0-0.1 10 3/uL Immature Granulocytes Abs Auto 0.04 0.00-0.03 10 3/uL Performing Lab: see note [facility] LB PROF 14(COMP METB) Reviewed date:08/04/2024 11:09:08 AM Interpretation: Performing Lab: Notes/Report: [facility] , Sodium 138 136-145 mmol/L Potassium 4.4 3.5-5.1 mmol/L Chloride 102 98-107 mmol/L Carbon Dioxide 25.6 21.0-32.0 mmol/L Anion Gap 14.8 Glucose 85 74-106 mg/dL Blood Urea Nitrogen 68.0 7.0-18.0 mg/dL Creatinine 2.37 0.55-1.02 mg/dL Estimated GFR ( Catarina 25 >=60 mL/min/1.73m 2 Estimated GFR (Non- Oma 21 >=60 mL/min/1.73m 2 BUN Creatinine Ratio 28.7 Calcium 8.2 8.5-10.1 mg/dL Bilirubin Total 0.1 0.2-1.0 mg/dL Aspartate Amino Transferase 23 15-37 U/L Alanine Aminotransferase 17 14-59 U/L Alkaline Phosphatase 252 46-116 U/L Total Protein 6.9 6.4-8.2 g/dL Albumin Level 3.2 3.4-5.0 g/dL Globulin 3.7 Albumin Globulin Ratio 0.9 Performing Lab: see note - [facility] LB Osmolality Reviewed date:08/05/2024 01:00:46 PM Interpretation: Performing Lab: Notes/Report: [facility] , Osmolality 297 280-301 mOsmol/kg Performed at: - [facility] [id number] Psychotherapist: Nicolas Arenas MD, Phone: [phone] Performing Lab: see note LC - [facility] LB XR HAND LT MIN 3V Reviewed date:08/05/2024 01:00:46 PM Interpretation: Performing Lab: Notes/Report: Source Facility: [place] [address] [place] [address] XRay Report Signed Patient: JOSE MOSER MR#: [id number] : 1960 Acct:[id number] Age/Sex: 64 / F ADM Date: 08/02/24 Loc: RAD Attending Dr: Angle Godinez M.D. Ordering Physician: Angle Godinez M.D. Date of Service: 08/02/24 Procedure(s): XR hand LT min 3V Accession Number(s): [id number] cc: Angle Godinez M.D. [place] [address] Patient Name: JOSE MOSER MRN: [id number] date: 1960 Sex: F Assigned Patient Location: [facility] Current Patient Location: Accession/Order Number: [id number] Exam Date: 08/02/2024 12:30 Report Date: 08/05/2024 08:53 At the request of: ANGLE GODINEZ Procedure: XR hand LT min 3V PROCEDURE: XR hand LT min 3V COMPARISON: None. HISTORY: Left hand pain FINDINGS: BONES:No acute fracture or dislocation. Mild degenerative changes with joint space narrowing marginal osteophyte formation most significant first carpal metacarpal joint SOFT TISSUES:Negative. No visible soft tissue swelling. EFFUSION:None visible. OTHER: Negative. XR/XR hand LT min 3V IMPRESSION: Mild osteoarthritis. Electronically authenticated by: CARLOS ALCALA Date: 08/05/2024 08:53 Dictated By: Carlos Alcala M.D. Signed By: 08/05/24854 DD/ 2 TD/TT: Bus Starter: [place] [address] XRay Report Signed Patient: ARSLAN MOSER MR#: [id number] : 1960 Acct:[id number] Age/Sex: 64 / F ADM Date: 08/02/24 Loc: RAD Attending Dr: Charlette Godinez M.D. Ordering Physician: Angle Godinez M.D. Date of Service: 08/02/24 Procedure(s): XR kilpatrick d LT min 3V Accession Number(s): [id number] cc: Angle Godinez M.D. [place] [address] Patient Name: JOSE MOSER MRN: [id number] date: 1960 Sex: F Assigned Patient Location: [facility] Current Patient Location: Accession/Order Numb er: [id number] Exam Date: 08/02/2024 12:30 Report Date: 08/05/2024 08:53 At the request of: ANGLE GODINEZ Procedure: XR hand L T min 3V PROCEDURE: XR hand L T min 3V COMPARISON: None. HISTORY: Left hand pain FINDINGS: BONES:No acute fract ure or dislocation. Mild degenerative changes with joint space narrowing elizabeth inal osteophyte formation most significant first carpal metacarpal joint SOFT TISSUES:Negativ e. No visible soft tissue swelling. EFFUSION:None visible. OTHER: Negative. X R/XR hand LT min 3V IMPRESSION: Mild osteoarthritis. Electronically authenticated by: CARLOS ALCALA Date: 08/05/2024 08:53 Dictated By: Yayo Alcala M.D. Signed By: 08/05/2455 DD/ TD/TT: Bus Starter: CBC AUTO DIFF Reviewed date:09/01/2024 09:49:36 AM Interpretation: Performing Lab: Notes/Report: [facility] , White Blood Count 6.7 4.0-11.0 10 3/uL Red Blood Count 3.47 4.20-5.40 10 6/uL Hemoglobin 10.8 12.0-16.0 g/dL Hematocrit 34.2 36.0-48.0 % Mean Corpuscular Volume 98.6 81.0-99.0 fL Mean Corpuscular Hemoglobin 31.1 26.7-34.0 pg Mean Corpuscular HGB Conc 31.6 29.9-35.2 g/dL Red Cell Distribution Width 14.3 11.0-15.0 % Platelet Count 262 150-450 10 3/uL Mean Platelet Volume 8.7 9.5-13.5 fL Neutrophils Percent Auto 63.2 43.0-75.0 % Lymphocytes Percent Auto 23.7 20.5-60.0 % Monocytes Percent Auto 8.5 1.7-12.0 % Eosinophils Percent Auto 3.6 0.9-7.0 % Basophils Percent Auto 0.4 0.2-2.0 % Immature Granulocytes Pct Auto 0.6 0.0-0.5 % Neutrophils Absolute Auto 4.3 1.4-6.5 10 3/uL Lymphocytes Absolute Auto 1.6 1.2-3.8 10 3/uL Monocytes Absolute Auto 0.6 0.3-0.8 10 3/uL Eosinophils Absolute Auto 0.2 0.0-0.7 10 3/uL Basophils Absolute Auto 0.0 0.0-0.1 10 3/uL Immature Granulocytes Abs Auto 0.04 0.00-0.03 10 3/uL Performing Lab: see note ML - [facility] LB PROF 14(COMP METB) Reviewed date:09/01/2024 09:49:36 AM Interpretation: Performing Lab: Notes/Report: [facility] , Sodium 135 136-145 mmol/L Potassium 3.8 3.5-5.1 mmol/L Chloride 100 98-107 mmol/L Carbon Dioxide 25.1 21.0-32.0 mmol/L Anion Gap 13.7 Glucose 89 74-106 mg/dL Blood Urea Nitrogen 48.0 7.0-18.0 mg/dL Creatinine 1.87 0.55-1.02 mg/dL Estimated GFR ( Catarina 33 >=60 mL/min/1.73m 2 Estimated GFR (Non- Oma 27 >=60 mL/min/1.73m 2 BUN Creatinine Ratio 25.7 Calcium 8.1 8.5-10.1 mg/dL Bilirubin Total 0.2 0.2-1.0 mg/dL Aspartate Amino Transferase 22 15-37 U/L Alanine Aminotransferase 18 14-59 U/L Alkaline Phosphatase 268 46-116 U/L Total Protein 7.2 6.4-8.2 g/dL Albumin Level 3.4 3.4-5.0 g/dL Globulin 3.8 Albumin Globulin Ratio 0.9 Performing Lab: see note - [facility] LB Osmolality Reviewed date:09/03/2024 09:28:43 AM Interpretation: Performing Lab: Notes/Report: [facility] , Osmolality 286 280-301 mOsmol/kg Performed at: [facility] [address] [id number] Psychotherapist: Nicolas Arenas MD, Phone: [phone] Performing Lab: see note - [facility] LB CBC AUTO DIFF Reviewed date:09/05/2024 06:43:23 PM Interpretation: Performing Lab: Notes/Report: [facility] , White Blood Count 6.0 4.0-11.0 10 3/uL Red Blood Count 3.42 4.20-5.40 10 6/uL Hemoglobin 10.6 12.0-16.0 g/dL Hematocrit 33.6 36.0-48.0 % Mean Corpuscular Volume 98.2 81.0-99.0 fL Mean Corpuscular Hemoglobin 31.0 26.7-34.0 pg Mean Corpuscular HGB Conc 31.5 29.9-35.2 g/dL Red Cell Distribution Width 14.2 11.0-15.0 % Platelet Count 246 150-450 10 3/uL Mean Platelet Volume 9.0 9.5-13.5 fL Neutrophils Percent Auto 67.2 43.0-75.0 % Lymphocytes Percent Auto 22.4 20.5-60.0 % Monocytes Percent Auto 7.7 1.7-12.0 % Eosinophils Percent Auto 2.0 0.9-7.0 % Basophils Percent Auto 0.5 0.2-2.0 % Immature Granulocytes Pct Auto 0.2 0.0-0.5 % Neutrophils Absolute Auto 4.0 1.4-6.5 10 3/uL Lymphocytes Absolute Auto 1.3 1.2-3.8 10 3/uL Monocytes Absolute Auto 0.5 0.3-0.8 10 3/uL Eosinophils Absolute Auto 0.1 0.0-0.7 10 3/uL Basophils Absolute Auto 0.0 0.0-0.1 10 3/uL Immature Granulocytes Abs Auto 0.01 0.00-0.03 10 3/uL Performing Lab: see note - [facility] LB Osmolality Reviewed date:09/08/2024 02:59:02 PM Interpretation: Performing Lab: Notes/Report: [facility] , Osmolality 290 280-301 mOsmol/kg [address] [place], [place] [id number] Psychotherapist: Nicolas Arenas MD, Phone: [phone] Performed at: [facility] [place] Performing Lab: see note - [facility] LB PROF 14(COMP METB) Reviewed date:09/11/2024 05:38:12 PM Interpretation: Performing Lab: Notes/Report: [facility] , Sodium 136 136-145 mmol/L Potassium 3.5 3.5-5.1 mmol/L Chloride 100 98-107 mmol/L Carbon Dioxide 26.9 21.0-32.0 mmol/L Anion Gap 12.6 Glucose 90 74-106 mg/dL Blood Urea Nitrogen 58.0 7.0-18.0 mg/dL Creatinine 2.19 0.55-1.02 mg/dL Estimated GFR ( Catarina 28 >=60 mL/min/1.73m 2 Estimated GFR (Non- Oma 23 >=60 mL/min/1.73m 2 BUN Creatinine Ratio 26.5 Calcium 8.6 8.5-10.1 mg/dL Bilirubin Total 0.3 0.2-1.0 mg/dL Aspartate Amino Transferase 34 15-37 U/L Alanine Aminotransferase 18 14-59 U/L Alkaline Phosphatase 289 46-116 U/L Total Protein 7.1 6.4-8.2 g/dL Albumin Level 3.6 3.4-5.0 g/dL Globulin 3.5 Albumin Globulin Ratio 1.0 Performing Lab: see note - [facility] LB Osmolality Reviewed date:09/16/2024 08:39:55 PM Interpretation: Performing Lab: Notes/Report: [facility] , Osmolality 292 280-301 mOsmol/kg Performed at: [facility] [facility] [address] [place], [place] [id number] Psychotherapist: Nicolas Arenas MD, Phone: [phone] Performing Lab: see note [facility] LB BNP Reviewed date:09/16/2024 08:39:55 PM Interpretation: Performing Lab: Notes/Report: [facility] , NT Pro B Type Natriuretic Pept 749.0 <=900.0 pg/mL Performing Lab: see note ML - [facility] LB Blood Culture 1 Reviewed date:09/22/2024 03:51:35 PM Interpretation: Performing Lab: Notes/Report: [facility] , Blood Culture 1 See Below For Report Blood Culture 1 NG5D NO GROWTH AT 5 DAYS.^NO GROWTH AT 5 DAYS. Performing Lab: see note ML - [facility] LB Blood Culture 2 Reviewed date:09/22/2024 03:51:35 PM Interpretation: Performing Lab: Notes/Report: [facility] , Blood Culture 2 See Below For Report Blood Culture 2 NG5D NO GROWTH AT 5 DAYS.^NO GROWTH AT 5 DAYS. Performing Lab: see note ML - [facility] LB Troponin I High Sensitivity Reviewed date:09/16/2024 08:39:55 PM Interpretation: Performing Lab: Notes/Report: [facility] , Troponin I High Sensitivity 15.1 4.0-51.3 pg/mL CUT-OFF POINTS HAVE BEEN ESTABLISHED BASED ON THE FOURTH UNIVERSAL DEFINITION OF MYOCARDIAL INFARCTION. THE UPPER REFERENCE LIMIT (URL) OF TROPONIN, DEFINED THE 99TH PERCENTILE OF cTnI DISTRIBUTION IN A REFERENCE POPULATION, HAS BEEN CONFIRMED THE DECISION THRESHOLD FOR SD DIAGNOSIS. 99TH PERCENTILE = 51.4 PG/ML NOTE: HIGH-SENSITIVITY TROPONIN ASSAY IS NOT INTENDED TO BE USED IN ISOLATION BUT SHOULD BE INTERPRETED IN CONJUNCTION WITH OTHER DIAGNOSTIC AND CLINICAL INFORMATION. Performing Lab: see note ML - [facility] LB Venous Blood Gas Reviewed date:09/16/2024 08:39:55 PM Interpretation: Performing Lab: Notes/Report: [facility] , pH VBG 7.346 7.330-7.430 PCO2 VBG 47.8 40.0-52.0 mmHg Performing Lab: see note ML - [facility] LB SARS-CoV-2 Ag* Reviewed date:09/15/2024 07:34:53 PM Interpretation: Performing Lab: Notes/Report: [facility] , SARS-CoV-2 Ag NEGATIVE NEGATIVE This test has not been FDA cleared or approved, but has been authorized by the FDA under an Emergency Use Authorization (EUA) for use by authorized laboratories certified under CLIA that meet the requirements to perform moderate or high complexity testing. This test has been authorized only for the detection of proteins from SARS-CoV-2, not for any other viruses or pathogens. The emergency use of this test is authorized for the duration of the declaration that circumstances exist justifying the authorization of emergency use of in vitro diagnostic tests for detection and/or diagnosis of Covid-19 under section 564(b)(1) of the Act, 21 U.S.C. 360bbb-3(b)(1), unless the declaration is terminated or authorization is revoked sooner. Performing Lab: see note ML - [facility] LB ECG 12 lead Reviewed date:09/16/2024 08:39:55 PM Interpretation: Performing Lab: Notes/Report: Source Facility: [place] [address] [place] [address] Electrocardiograph Report Signed Patient: JOSE MOSER MR#: [id number] : 1960 Acct:[id number] Age/Sex: 64 / F ADM Date: 09/15/24 Loc: [place] 218-[address]: Angle Godinez M.D. Ordering Physician: Jade Maya Date of Service: 09/15/24 Procedure(s): ECG 12 lead Accession Number(s): [id number] cc: [facility] Test Date: 2024-09-15 Pat Name: JOSE MOSER Department: Room: - Gender: Female [employer] Operator: : 1960 Requested By: 0929 Order Number: [id number] Reading MD: BENJIE DANG M.D. Measurements Intervals [place] Rate: 84 P: 90 GA: 142 QRS: -4 QRSD: 98 T: -6 QT: 384 QTc: 424 Interpretive Statements NORMAL SINUS RHYTHM Minimal voltage criteria for LVH, may be normal variant ARTIFACT IN LEAD(S) Borderline ECG Compared to ECG 03/29/2024 14:03:36 No significant change Electronically Signed On 09-16-2024 7:08:51 EDT by BENJIE DANG M.D. Dictated By: BENJIE DANG Signed By: 09/16/24708 DD/ 19 TD/TT: Bus Starter: The [address] [address] Electrocardiograph Report Signed Patient: ARSLAN MOSER MR#: [id number] : 1960 Acct:[id number] Age/Sex: 64 / F ADM Date: 09/15/24 Loc: MS 218-[address]: Charlette Godinez M.D. 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 Measurements Intervals [place] Rate: 84 P: 90 GA: 142 QRS: -4 QRSD: 98 T: -6 QT: 384 QTc: 424 Interpretive Statements NORMAL SINUS RHYTHM Minimal voltage crit eria for LVH, may be normal variant ARTIFACT IN LEAD(S) Borderline ECG Compared to ECG 03/29/2024 14:03:36 No significant change Electronically Jenny d On 09-16-2024 7:08:51 EDT by BENJIE DANG M.D. Dictated By: BENJIE DANG Signed By: 09/16/24 0709 DD/ 19 TD/TT: Bus Starter: CBC AUTO DIFF Reviewed date:09/17/2024 12:10:47 PM Interpretation: Performing Lab: Notes/Report: [facility] , White Blood Count 4.5 4.0-11.0 10 3/uL Red Blood Count 3.15 4.20-5.40 10 6/uL Hemoglobin 9.6 12.0-16.0 g/dL Hematocrit 31.3 36.0-48.0 % Mean Corpuscular Volume 99.4 81.0-99.0 fL Mean Corpuscular Hemoglobin 30.5 26.7-34.0 pg Mean Corpuscular HGB Conc 30.7 29.9-35.2 g/dL Red Cell Distribution Width 14.0 11.0-15.0 % Platelet Count 244 150-450 10 3/uL Mean Platelet Volume 8.9 9.5-13.5 fL Neutrophils Percent Auto 70.0 43.0-75.0 % Lymphocytes Percent Auto 18.9 20.5-60.0 % Monocytes Percent Auto 9.0 1.7-12.0 % Eosinophils Percent Auto 1.5 0.9-7.0 % Basophils Percent Auto 0.4 0.2-2.0 % Immature Granulocytes Pct Auto 0.2 0.0-0.5 % Neutrophils Absolute Auto 3.2 1.4-6.5 10 3/uL Lymphocytes Absolute Auto 0.9 1.2-3.8 10 3/uL Monocytes Absolute Auto 0.4 0.3-0.8 10 3/uL Eosinophils Absolute Auto 0.1 0.0-0.7 10 3/uL Basophils Absolute Auto 0.0 0.0-0.1 10 3/uL Immature Granulocytes Abs Auto 0.01 0.00-0.03 10 3/uL Performing Lab: see note ML - [facility] LB PROF CHEM 8 (BAS METB) Reviewed date:09/17/2024 12:10:47 PM Interpretation: Performing Lab: Notes/Report: [facility] , Sodium 138 136-145 mmol/L Potassium 3.5 3.5-5.1 mmol/L Chloride 102 98-107 mmol/L Carbon Dioxide 29.3 21.0-32.0 mmol/L Anion Gap 10.2 Glucose 111 74-106 mg/dL Blood Urea Nitrogen 43.0 7.0-18.0 mg/dL Creatinine 1.78 0.55-1.02 mg/dL Estimated GFR ( Catarina 35 >=60 mL/min/1.73m 2 Estimated GFR (Non- Oma 29 >=60 mL/min/1.73m 2 BUN Creatinine Ratio 24.2 Calcium 8.3 8.5-10.1 mg/dL Performing Lab: see note - [facility] IRON AND TIBC Reviewed date:09/29/2024 03:19:39 PM Interpretation: Performing Lab: Notes/Report: [facility] , Iron 71.0 50.0-170.0 ug/dL Total Iron Binding Capacity 271.0 250.0-450.0 ug/dL Percent Iron Saturation 26.2 Performing Lab: see note [facility] LB PROF 14(COMP METB) Reviewed date:10/07/2024 08:19:45 PM Interpretation: Performing Lab: Notes/Report: [facility] , Sodium 133 136-145 mmol/L Potassium 4.3 3.5-5.1 mmol/L Chloride 100 98-107 mmol/L Carbon Dioxide 25.3 21.0-32.0 mmol/L Anion Gap 12.0 Glucose 93 74-106 mg/dL Blood Urea Nitrogen 61.0 7.0-18.0 mg/dL Creatinine 1.63 0.55-1.02 mg/dL Estimated GFR ( Catarina 39 >=60 mL/min/1.73m 2 Estimated GFR (Non- Oma 32 >=60 mL/min/1.73m 2 BUN Creatinine Ratio 37.4 Calcium 8.5 8.5-10.1 mg/dL Bilirubin Total 0.2 0.2-1.0 mg/dL Aspartate Amino Transferase 26 15-37 U/L Alanine Aminotransferase 15 14-59 U/L Alkaline Phosphatase 277 46-116 U/L Total Protein 7.0 6.4-8.2 g/dL Albumin Level 3.4 3.4-5.0 g/dL Globulin 3.6 Albumin Globulin Ratio 0.9 Performing Lab: see note - [facility] LB Osmolality Reviewed date:10/08/2024 01:04:41 PM Interpretation: Performing Lab: Notes/Report: [facility] , Osmolality 293 280-301 mOsmol/kg Performed at: [address] [id number] Psychotherapist: Nicolas Arenas MD, Phone: [phone] Performing Lab: see note - [facility] LB Osmolality Reviewed date:10/17/2024 01:08:03 PM Interpretation: Performing Lab: Notes/Report: [facility] , Osmolality 294 280-301 mOsmol/kg Performed at: [address] [id number] Psychotherapist: Nicolas Arenas MD, Phone: [phone] Performing Lab: see note - [facility] LB ECG 12 lead Reviewed date:10/15/2024 08:28:30 PM Interpretation: Performing Lab: Notes/Report: Source Facility: [place] [address] [place] [address] Electrocardiograph Report Signed Patient: JOSE MOSER MR#: [id number] : 1960 Acct:[id number] Age/Sex: 64 / F ADM Date: 10/15/24 Loc: ER Attending Dr: Ordering Physician: Teressa Gregory M.D. Date of Service: 10/15/24 Procedure(s): ECG 12 lead Accession Number(s): [id number] cc: [facility] Test Date: 2024-10-15 Pat Name: JOSE MOSER Department: Room: - Gender: Female [employer] Operator: : 1960 Requested By: 1030 Order Number: [id number] Reading MD: NEHEMIAH CAMPBELL Measurements Intervals [place] Rate: 83 P: 80 GA: 170 QRS: 20 QRSD: 98 T: 22 QT: 364 QTc: 404 Interpretive Statements 1100 Sinus rhythm 9110 normal ECG Compared to ECG 09/15/2024 19:20:09 Left ventricular hypertrophy no longer present Electronically Signed On 10-15-2024 18:22:52 EDT by NEHEMIAH CAMPBELL Dictated By: Nehemiah Campbell M.D. Signed By: 10/15/24 1823 DD/ 1622 TD/TT: Bus Starter: [place] [address] Electrocardiograph Report Signed Patient: ARSLAN MOSER MR#: [id number] : 1960 Acct:[id number] Age/Sex: 64 / F ADM Date: 10/15/24 Loc: ER Attending Dr: Ordering Physician: Teressa Gregory M.D. 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 Signed By: 10/15/24 182 DD/ 1622 TD/TT: Bus Starter: PROF ZAMORA 8 ([facility]) Reviewed date:10/16/2024 10:15:17 AM Interpretation: Performing Lab: Notes/Report: [facility] , Sodium 139 136-145 mmol/L Potassium 3.9 3.5-5.1 mmol/L Chloride 103 98-107 mmol/L Carbon Dioxide 24.5 21.0-32.0 mmol/L Anion Gap 15.4 Glucose 116 74-106 mg/dL Blood Urea Nitrogen 67.0 7.0-18.0 mg/dL Creatinine 2.04 0.55-1.02 mg/dL Estimated GFR ( Catarina 30 >=60 mL/min/1.73m 2 Estimated GFR (Non- Oma 25 >=60 mL/min/1.73m 2 BUN Creatinine Ratio 32.8 Calcium 8.4 8.5-10.1 mg/dL Performing Lab: see note ML - [facility] LB CBC AUTO DIFF Reviewed date:10/18/2024 08:57:23 AM Interpretation: Performing Lab: Notes/Report: [facility] , White Blood Count 5.9 4.0-11.0 10 3/uL Red Blood Count 2.85 4.20-5.40 10 6/uL Hemoglobin 8.7 12.0-16.0 g/dL Hematocrit 28.9 36.0-48.0 % Mean Corpuscular Volume 101.4 81.0-99.0 fL Mean Corpuscular Hemoglobin 30.5 26.7-34.0 pg Mean Corpuscular HGB Conc 30.1 29.9-35.2 g/dL Red Cell Distribution Width 13.7 11.0-15.0 % Platelet Count 195 150-450 10 3/uL Mean Platelet Volume 9.2 9.5-13.5 fL Neutrophils Percent Auto 61.5 43.0-75.0 % Lymphocytes Percent Auto 24.6 20.5-60.0 % Monocytes Percent Auto 10.3 1.7-12.0 % Eosinophils Percent Auto 2.7 0.9-7.0 % Basophils Percent Auto 0.2 0.2-2.0 % Immature Granulocytes Pct Auto 0.7 0.0-0.5 % Neutrophils Absolute Auto 3.7 1.4-6.5 10 3/uL Lymphocytes Absolute Auto 1.5 1.2-3.8 10 3/uL Monocytes Absolute Auto 0.6 0.3-0.8 10 3/uL Eosinophils Absolute Auto 0.2 0.0-0.7 10 3/uL Basophils Absolute Auto 0.0 0.0-0.1 10 3/uL Immature Granulocytes Abs Auto 0.04 0.00-0.03 10 3/uL Performing Lab: see note - [facility] PROF CHEM 8 (BAS METB) Reviewed date:10/18/2024 08:57:23 AM Interpretation: Performing Lab: Notes/Report: [facility] , Sodium 139 136-145 mmol/L Potassium 3.9 3.5-5.1 mmol/L Chloride 103 98-107 mmol/L Carbon Dioxide 28.6 21.0-32.0 mmol/L Anion Gap 11.3 Glucose 80 74-106 mg/dL Blood Urea Nitrogen 63.0 7.0-18.0 mg/dL Creatinine 2.06 0.55-1.02 mg/dL Estimated GFR ( Catarina 30 >=60 mL/min/1.73m 2 Estimated GFR (Non- Oma 24 >=60 mL/min/1.73m 2 BUN Creatinine Ratio 30.6 Calcium 8.0 8.5-10.1 mg/dL Performing Lab: see note - [facility] LB PROF 14(COMP METB) Reviewed date:10/22/2024 03:59:28 PM Interpretation: Performing Lab: Notes/Report: [facility] , Sodium 133 136-145 mmol/L Potassium 4.6 3.5-5.1 mmol/L Chloride 96 98-107 mmol/L Carbon Dioxide 28.6 21.0-32.0 mmol/L Anion Gap 13.0 Glucose 86 74-106 mg/dL Blood Urea Nitrogen 63.0 7.0-18.0 mg/dL Creatinine 1.83 0.55-1.02 mg/dL Estimated GFR ( Catarina 34 >=60 mL/min/1.73m 2 Estimated GFR (Non- Oma 28 >=60 mL/min/1.73m 2 BUN Creatinine Ratio 34.4 Calcium 8.3 8.5-10.1 mg/dL Bilirubin Total 0.2 0.2-1.0 mg/dL Aspartate Amino Transferase 23 15-37 U/L Alanine Aminotransferase 17 14-59 U/L Alkaline Phosphatase 277 46-116 U/L Total Protein 7.3 6.4-8.2 g/dL Albumin Level 3.6 3.4-5.0 g/dL Globulin 3.7 Albumin Globulin Ratio 1.0 Performing Lab: see note ML - [facility] LB CBC AUTO DIFF Reviewed date:11/12/2024 08:06:12 PM Interpretation: Performing Lab: Notes/Report: [facility] , White Blood Count 5.2 4.0-11.0 10 3/uL Red Blood Count 3.33 4.20-5.40 10 6/uL Hemoglobin 10.3 12.0-16.0 g/dL Hematocrit 31.8 36.0-48.0 % Mean Corpuscular Volume 95.5 81.0-99.0 fL Mean Corpuscular Hemoglobin 30.9 26.7-34.0 pg Mean Corpuscular HGB Conc 32.4 29.9-35.2 g/dL Red Cell Distribution Width 13.4 11.0-15.0 % Platelet Count 253 150-450 10 3/uL Mean Platelet Volume 9.2 9.5-13.5 fL Neutrophils Percent Auto 63.5 43.0-75.0 % Lymphocytes Percent Auto 24.2 20.5-60.0 % Monocytes Percent Auto 8.6 1.7-12.0 % Eosinophils Percent Auto 2.7 0.9-7.0 % Basophils Percent Auto 0.6 0.2-2.0 % Immature Granulocytes Pct Auto 0.4 0.0-0.5 % Neutrophils Absolute Auto 3.3 1.4-6.5 10 3/uL Lymphocytes Absolute Auto 1.3 1.2-3.8 10 3/uL Monocytes Absolute Auto 0.5 0.3-0.8 10 3/uL Eosinophils Absolute Auto 0.1 0.0-0.7 10 3/uL Basophils Absolute Auto 0.0 0.0-0.1 10 3/uL Immature Granulocytes Abs Auto 0.02 0.00-0.03 10 3/uL Performing Lab: see note ML - [facility] LB PROF 14(COMP METB) Reviewed date:11/12/2024 08:06:12 PM Interpretation: Performing Lab: Notes/Report: [facility] , Sodium 136 136-145 mmol/L Potassium 3.4 3.5-5.1 mmol/L Chloride 98 98-107 mmol/L Carbon Dioxide 25.5 21.0-32.0 mmol/L Anion Gap 15.9 Glucose 102 74-106 mg/dL Blood Urea Nitrogen 102.0 7.0-18.0 mg/dL RESULT S CALLED TO JEREL ALVES RN Creatinine 2.56 0.55-1.02 mg/dL Estimated GFR ( Catarina 23 >=60 mL/min/1.73m 2 Estimated GFR (Non- Oma 19 >=60 mL/min/1.73m 2 BUN Creatinine Ratio 39.8 Calcium 8.7 8.5-10.1 mg/dL Bilirubin Total 0.2 0.2-1.0 mg/dL Aspartate Amino Transferase 47 15-37 U/L Alanine Aminotransferase 27 14-59 U/L Alkaline Phosphatase 270 46-116 U/L Total Protein 7.3 6.4-8.2 g/dL Albumin Level 3.4 3.4-5.0 g/dL Globulin 3.9 Albumin Globulin Ratio 0.9 Performing Lab: see note ML - [facility] LB PROF 14(COMP METB) Reviewed date:11/26/2024 04:03:27 PM Interpretation: Performing Lab: Notes/Report: [facility] , Sodium 134 136-145 mmol/L Potassium 4.8 3.5-5.1 mmol/L Chloride 97 98-107 mmol/L Carbon Dioxide 24.7 21.0-32.0 mmol/L Anion Gap 17.1 Glucose 81 74-106 mg/dL Blood Urea Nitrogen 101.0 7.0-18.0 mg/dL RESULT S CALLED TO JEREL ALVES RN at 1145 Creatinine 2.70 0.55-1.02 mg/dL Estimated GFR ( Catarina 22 >=60 mL/min/1.73m 2 Estimated GFR (Non- Oma 18 >=60 mL/min/1.73m 2 BUN Creatinine Ratio 37.4 Calcium 8.4 8.5-10.1 mg/dL Bilirubin Total 0.2 0.2-1.0 mg/dL Aspartate Amino Transferase 23 15-37 U/L Alanine Aminotransferase 20 14-59 U/L Alkaline Phosphatase 298 46-116 U/L Total Protein 6.9 6.4-8.2 g/dL Albumin Level 3.1 3.4-5.0 g/dL Globulin 3.8 Albumin Globulin Ratio 0.8 Performing Lab: see note ML - [facility] LB CBC AUTO DIFF Reviewed date:12/10/2024 12:40:51 PM Interpretation: Performing Lab: Notes/Report: [facility] , White Blood Count 5.3 4.0-11.0 10 3/uL Red Blood Count 3.76 4.20-5.40 10 6/uL Hemoglobin 11.6 12.0-16.0 g/dL Hematocrit 36.2 36.0-48.0 % Mean Corpuscular Volume 96.3 81.0-99.0 fL Mean Corpuscular Hemoglobin 30.9 26.7-34.0 pg Mean Corpuscular HGB Conc 32.0 29.9-35.2 g/dL Red Cell Distribution Width 13.7 11.0-15.0 % Platelet Count 259 150-450 10 3/uL Mean Platelet Volume 9.1 9.5-13.5 fL Neutrophils Percent Auto 60.4 43.0-75.0 % Lymphocytes Percent Auto 26.5 20.5-60.0 % Monocytes Percent Auto 9.5 1.7-12.0 % Eosinophils Percent Auto 2.6 0.9-7.0 % Basophils Percent Auto 0.4 0.2-2.0 % Immature Granulocytes Pct Auto 0.6 0.0-0.5 % Neutrophils Absolute Auto 3.2 1.4-6.5 10 3/uL Lymphocytes Absolute Auto 1.4 1.2-3.8 10 3/uL Monocytes Absolute Auto 0.5 0.3-0.8 10 3/uL Eosinophils Absolute Auto 0.1 0.0-0.7 10 3/uL Basophils Absolute Auto 0.0 0.0-0.1 10 3/uL Immature Granulocytes Abs Auto 0.03 0.00-0.03 10 3/uL Performing Lab: see note ML - [facility] LB Osmolality Reviewed date:12/12/2024 09:19:03 AM Interpretation: Performing Lab: Notes/Report: [facility] , Osmolality 288 280-301 mOsmol/kg Performed at: [facility] [address] [id number] Psychotherapist: Nicolas Arenas MD, Phone: [phone] Performing Lab: see note - [facility] LB CBC AUTO DIFF Reviewed date:01/02/2025 06:15:12 PM Interpretation: Performing Lab: Notes/Report: [facility] , White Blood Count 5.7 4.0-11.0 10 3/uL Red Blood Count 3.68 4.20-5.40 10 6/uL Hemoglobin 11.4 12.0-16.0 g/dL Hematocrit 34.5 36.0-48.0 % Mean Corpuscular Volume 93.8 81.0-99.0 fL Mean Corpuscular Hemoglobin 31.0 26.7-34.0 pg Mean Corpuscular HGB Conc 33.0 29.9-35.2 g/dL Red Cell Distribution Width 12.9 11.0-15.0 % Platelet Count 233 150-450 10 3/uL Mean Platelet Volume 9.9 9.5-13.5 fL Neutrophils Percent Auto 70.2 43.0-75.0 % Lymphocytes Percent Auto 19.6 20.5-60.0 % Monocytes Percent Auto 6.8 1.7-12.0 % Eosinophils Percent Auto 2.8 0.9-7.0 % Basophils Percent Auto 0.3 0.2-2.0 % Immature Granulocytes Pct Auto 0.3 0.0-0.5 % Neutrophils Absolute Auto 4.0 1.4-6.5 10 3/uL Lymphocytes Absolute Auto 1.1 1.2-3.8 10 3/uL Monocytes Absolute Auto 0.4 0.3-0.8 10 3/uL Eosinophils Absolute Auto 0.2 0.0-0.7 10 3/uL Basophils Absolute Auto 0.0 0.0-0.1 10 3/uL Immature Granulocytes Abs Auto 0.02 0.00-0.03 10 3/uL Performing Lab: see note ML - [facility] FERRITIN Reviewed date:01/02/2025 06:15:12 PM Interpretation: Performing Lab: Notes/Report: [facility] , Ferritin 181.0 8.0-252.0 ng/mL Performing Lab: see note - [facility] IRON AND TIBC Reviewed date:01/02/2025 06:15:12 PM Interpretation: Performing Lab: Notes/Report: [facility] , Iron 100.0 50.0-170.0 ug/dL Total Iron Binding Capacity 259.0 250.0-450.0 ug/dL Percent Iron Saturation 38.6 Performing Lab: see note [facility] PROF 14(COMP METB) Reviewed date:01/02/2025 06:15:12 PM Interpretation: Performing Lab: Notes/Report: [facility] , Sodium 131 136-145 mmol/L Potassium 4.0 3.5-5.1 mmol/L Chloride 93 98-107 mmol/L Carbon Dioxide 30.4 21.0-32.0 mmol/L Anion Gap 11.6 Glucose 96 74-106 mg/dL Blood Urea Nitrogen 96.0 7.0-18.0 mg/dL RESULT S CALLED TO GENE HORNER RN Creatinine 2.13 0.55-1.02 mg/dL Estimated GFR ( Catarina 28 >=60 mL/min/1.73m 2 Estimated GFR (Non- Oma 23 >=60 mL/min/1.73m 2 BUN Creatinine Ratio 45.1 Calcium 8.9 8.5-10.1 mg/dL Bilirubin Total 0.3 0.2-1.0 mg/dL Aspartate Amino Transferase 20 15-37 U/L Alanine Aminotransferase 19 14-59 U/L Alkaline Phosphatase 278 46-116 U/L Total Protein 6.8 6.4-8.2 g/dL Albumin Level 3.1 3.4-5.0 g/dL Globulin 3.7 Albumin Globulin Ratio 0.8 Performing Lab: see note ML - [facility] LB Osmolality Reviewed date:01/02/2025 06:15:12 PM Interpretation: Performing Lab: Notes/Report: [facility] , Osmolality 296 280-301 mOsmol/kg Performed at: [facility] [address] [id number] Psychotherapist: Nicolas Arenas MD, Phone: [phone] Performing Lab: see note LC - [facility] LB CBC AUTO DIFF Reviewed date:01/02/2025 06:15:12 PM Interpretation: Performing Lab: Notes/Report: [facility] , White Blood Count 4.9 4.0-11.0 10 3/uL Red Blood Count 3.56 4.20-5.40 10 6/uL Hemoglobin 10.9 12.0-16.0 g/dL Hematocrit 34.1 36.0-48.0 % Mean Corpuscular Volume 95.8 81.0-99.0 fL Mean Corpuscular Hemoglobin 30.6 26.7-34.0 pg Mean Corpuscular HGB Conc 32.0 29.9-35.2 g/dL Red Cell Distribution Width 13.0 11.0-15.0 % Platelet Count 208 150-450 10 3/uL Mean Platelet Volume 9.6 9.5-13.5 fL Neutrophils Percent Auto 60.1 43.0-75.0 % Lymphocytes Percent Auto 27.8 20.5-60.0 % Monocytes Percent Auto 8.0 1.7-12.0 % Eosinophils Percent Auto 3.3 0.9-7.0 % Basophils Percent Auto 0.6 0.2-2.0 % Immature Granulocytes Pct Auto 0.2 0.0-0.5 % Neutrophils Absolute Auto 2.9 1.4-6.5 10 3/uL Lymphocytes Absolute Auto 1.4 1.2-3.8 10 3/uL Monocytes Absolute Auto 0.4 0.3-0.8 10 3/uL Eosinophils Absolute Auto 0.2 0.0-0.7 10 3/uL Basophils Absolute Auto 0.0 0.0-0.1 10 3/uL Immature Granulocytes Abs Auto 0.01 0.00-0.03 10 3/uL Performing Lab: see note ML - [facility] LB VITAMIN D 25 [place] Reviewed date:01/02/2025 06:15:12 PM Interpretation: Performing Lab: Notes/Report: [facility] , Vitamin D 69.4 <20 ng/mL Vit D deficient 20-<30 ng/mL Vit D insufficient 30-100 ng/mL Vit D sufficient >100 ng/mL Potential Toxicity Performing Lab: see note - [facility] LB Osmolality Reviewed date:01/06/2025 12:29:14 PM Interpretation: Performing Lab: Notes/Report: [facility] , Osmolality 275 280-301 mOsmol/kg Performed at: [address] [id number] Psychotherapist: Nicolas Arenas MD, Phone: [phone] Performing Lab: see note [facility] LB PTH, Intact Reviewed date:01/03/2025 12:58:41 PM Interpretation: Performing Lab: Notes/Report: [facility] , PTH, Intact 87 15-65 pg/mL Performed at: [address] [id number] Psychotherapist: Josué Crouch PhD, Phone: [phone] Performing Lab: see note [facility] LB CBC AUTO DIFF Reviewed date:01/07/2025 04:38:56 PM Interpretation: Performing Lab: Notes/Report: [facility] , White Blood Count 5.3 4.0-11.0 10 3/uL Red Blood Count 3.52 4.20-5.40 10 6/uL Hemoglobin 10.9 12.0-16.0 g/dL Hematocrit 34.1 36.0-48.0 % Mean Corpuscular Volume 96.9 81.0-99.0 fL Mean Corpuscular Hemoglobin 31.0 26.7-34.0 pg Mean Corpuscular HGB Conc 32.0 29.9-35.2 g/dL Red Cell Distribution Width 13.3 11.0-15.0 % Platelet Count 186 150-450 10 3/uL Mean Platelet Volume 9.3 9.5-13.5 fL Neutrophils Percent Auto 61.3 43.0-75.0 % Lymphocytes Percent Auto 25.4 20.5-60.0 % Monocytes Percent Auto 9.3 1.7-12.0 % Eosinophils Percent Auto 3.2 0.9-7.0 % Basophils Percent Auto 0.6 0.2-2.0 % Immature Granulocytes Pct Auto 0.2 0.0-0.5 % Neutrophils Absolute Auto 3.2 1.4-6.5 10 3/uL Lymphocytes Absolute Auto 1.3 1.2-3.8 10 3/uL Monocytes Absolute Auto 0.5 0.3-0.8 10 3/uL Eosinophils Absolute Auto 0.2 0.0-0.7 10 3/uL Basophils Absolute Auto 0.0 0.0-0.1 10 3/uL Immature Granulocytes Abs Auto 0.01 0.00-0.03 10 3/uL Performing Lab: see note [facility] LB PROF 14(COMP METB) Reviewed date:01/21/2025 02:22:57 PM Interpretation: Performing Lab: Notes/Report: [facility] , Sodium 136 136-145 mmol/L Potassium 5.3 3.5-5.1 mmol/L Chloride 105 98-107 mmol/L Carbon Dioxide 23.5 21.0-32.0 mmol/L Anion Gap 12.8 Glucose 110 74-106 mg/dL Blood Urea Nitrogen 29.0 7.0-18.0 mg/dL Creatinine 1.52 0.55-1.02 mg/dL Estimated GFR ( Catarina 42 >=60 mL/min/1.73m 2 Estimated GFR (Non- Oma 35 >=60 mL/min/1.73m 2 BUN Creatinine Ratio 19.1 Calcium 8.5 8.5-10.1 mg/dL Bilirubin Total 0.2 0.2-1.0 mg/dL Aspartate Amino Transferase 23 15-37 U/L Alanine Aminotransferase 28 14-59 U/L Alkaline Phosphatase 222 46-116 U/L Total Protein 6.3 6.4-8.2 g/dL Albumin Level 2.9 3.4-5.0 g/dL Globulin 3.4 Albumin Globulin Ratio 0.9 Performing Lab: see note - [facility] LB Osmolality Reviewed date:01/26/2025 07:39:37 PM Interpretation: Performing Lab: Notes/Report: [facility] , Osmolality 286 280-301 mOsmol/kg Performed at: [address] [id number] Psychotherapist: Nicolas Arenas MD, Phone: [phone] Performing Lab: see note - [facility] LB CT abdomen pelvis w con Reviewed date:01/21/2025 02:22:57 PM Interpretation: Performing Lab: Notes/Report: Source Facility: [place] [address] CT Scan Report Signed Patient: JOSE MOSER MR#: [id number] : 1960 Acct:[id number] Age/Sex: 64 / F ADM Date: 01/21/25 Loc: CT Attending Dr: Angle Godinez M.D. Ordering Physician: Angle Godinez M.D. Date of Service: 01/21/25 Procedure(s): CT abdomen pelvis w con Accession Number(s): [id number] cc: Angle Godinez M.D. [place] [address] Patient Name: JOSE MOSER MRN: [id number] date: 1960 Sex: F Assigned Patient Location: CT Current Patient Location: CT Accession/Order Number: [id number] Exam Date: 01/21/2025 11:45 Report Date: 01/21/2025 11:54 At the request of: ANGLE GODINEZ MD Procedure: CT abdomen pelvis w con CT ABDOMEN AND PELVIS WITH CONTRAST CLINICAL DATA: Right upper quadrant pain for the past 6 months. COMPARISON: 01/21/2024 Spiral images were obtained through the abdomen and pelvis following 100 mL of Omnipaque 300. This CT exam was performed using one or more following dose reduction techniques: Automated exposure control, adjustment of the mA and/or kV according to patient size, or use of iterative reconstruction technique. Limited cuts through the lung bases show minor atelectasis and/or scarring. The gallbladder is surgically absent. There is continued intra and extrahepatic biliary dilatation. No common duct stones are noted. No hepatic or splenic abnormalities are identified within limits of streak artifact. The pancreas is somewhat atrophic. No adrenal nodularity is seen. The renal left glands are symmetric. No hydronephrosis is identified. The abdominal aorta is normal caliber. A low-lying IVC filter is again visualized extending into the right common iliac vein. There is no pathologic lymphadenopathy or ascites. There are postoperative changes suggesting previous bariatric surgery. The small bowel loops are not disproportionately distended. There is a large amount of stool throughout the colon. There are sutures at the midline at the anterior abdominal wall. Postoperative and degenerative changes are seen at the spine. Images through the pelvis show no dilated small bowel. The appendix is not obvious. There is mild stool at the distal colon as well as stool at the cecum. No diverticular disease is noted. The uterus appears to be surgically absent. The urinary bladder shows no abnormalities for the degree of distention. There is no ascites. CT/CT abdomen pelvis w con IMPRESSION: CONTINUED BILIARY DILATATION THAT MAY BE RELATED TO PREVIOUS CHOLECYSTECTOMY. NO BOWEL OR URINARY TRACT OBSTRUCTION. INCREASED COLONIC STOOL SUGGESTING CONSTIPATION. NO OTHER ACUTE FINDINGS. Impression dictated by: Alysia Brunner M.D. 01/21/2025 11:54 AM Dictation Location: [place] [address] Electronically authenticated by: [id number] Y Date: 01/21/2025 11:54 Dictated By: Alysia Brunner M.D. Signed By: 01/21/25 1156 DD/ 1154 TD/TT: Bus Starter: [place] [address] CT Scan Report Signed Patient: ARSLAN MOSER MR#: [id number] : 1960 Acct:[id number] Age/Sex: 64 / F ADM Date: 01/21/25 Loc: CT Attending Dr: Charlette Godinez M.D. Ordering Physician: Angle Godinez M.D. Date of Service: 01/21/25 Procedure(s): CT abd omen pelvis w con Accession Number(s): [id number] cc: Angle Godinez M.D. [place] [address] Patient Name: JOSE MOSER MRN: [id number] date: 1960 Sex: F Assigned Patient Location: CT Current Patient Loca tion: CT Accession/Order Numb er: [id number] Exam Date: 01/21/2025 11:45 Report Date: 01/21/2025 11:54 At the request of: ANGLE GODINEZ MD Procedure: CT abdome n pelvis w con CT ABDOMEN AND PELVI S WITH CONTRAST CLINICAL DATA: Right upper quadrant pain for the past 6 months. COMPARISON: 01/21/2024 Spiral images were obtained through the abdomen and pelvis following 100 mL of Omnipaque 300. This CT exam was performed using one or more following dose reduction techniques : Automated exposure control, adjustment of the mA and/or kV according to burton ent size, or use of iterative reconstruction technique. Limited cuts through the lung bases show minor atelectasis and/or scarring. The gallbladder is surgically absent. There is continued intra and extrahepatic biliary dilatation. No common duct stones are noted. No hepatic or splenic abnormali ties are identified within limits of streak artifact. The pancreas is somewhat atrophic. No adrenal nodularity is seen. The renal left glands are symmetric . No hydronephrosis is identified. The abdominal aorta is normal caliber. A low-lying IVC filter is again visualized extending into the right common iliac vein. There is no pathologic lymphadenopathy or ascites. There are postoperative changes suggesting previous bariatric surgery. The small bowel loops are not disproportionately distended. There is a large amount of stool throughout the colon. There are sutures at the midli ne at the anterior abdominal wall. Postoperative and degenerative changes are seen at the spine. Images through the p david show no dilated small bowel. The appendix is not obvious. There is mi ld stool at the distal colon as well as stool at the cecum. No diverticul ar disease is noted. The uterus appears to be surgically absent. The urinary bladder shows no abnormalities for the degree of distention. There is no ascites. C T/CT abdomen pelvis w con IMPRESSION: CONTINUED BILIARY DILATATION THAT MAY BE RELATED TO PREVIOUS CHOLECYSTECTOMY. NO BOWEL OR URINARY TRACT OBSTRUCTION. INCREASED COLONIC ST OOL SUGGESTING CONSTIPATION. NO OTHER ACUTE FINDINGS. Impression dictated by: Alysia Brunner M.D. 01/21/2025 11:54 AM Dictation Location: [place] [address] Electronically authenticated by: [id number] Y Date: 01/21/2025 11:54 Dictated By: Alysia Brunner M.D. Signed By: 01/21/25 1156 DD/ 1154 TD/TT: Bus Starter: CBC AUTO DIFF Reviewed date:02/22/2024 12:47:23 PM Interpretation: Performing Lab: Notes/Report: [facility] , White Blood Count 6.6 4.0-11.0 10 3/uL Red Blood Count 2.95 4.20-5.40 10 6/uL Hemoglobin 8.6 12.0-16.0 g/dL Hematocrit 28.2 36.0-48.0 % Mean Corpuscular Volume 95.6 81.0-99.0 fL Mean Corpuscular Hemoglobin 29.2 26.7-34.0 pg Mean Corpuscular HGB Conc 30.5 29.9-35.2 g/dL Red Cell Distribution Width 14.6 11.0-15.0 % Platelet Count 299 150-450 10 3/uL Mean Platelet Volume 9.0 9.5-13.5 fL Neutrophils Percent Auto 66.8 43.0-75.0 % Lymphocytes Percent Auto 18.5 20.5-60.0 % Monocytes Percent Auto 9.2 1.7-12.0 % Eosinophils Percent Auto 4.5 0.9-7.0 % Basophils Percent Auto 0.5 0.2-2.0 % Immature Granulocytes Pct Auto 0.5 0.0-0.5 % Neutrophils Absolute Auto 4.4 1.4-6.5 10 3/uL Lymphocytes Absolute Auto 1.2 1.2-3.8 10 3/uL Monocytes Absolute Auto 0.6 0.3-0.8 10 3/uL Eosinophils Absolute Auto 0.3 0.0-0.7 10 3/uL Basophils Absolute Auto 0.0 0.0-0.1 10 3/uL Immature Granulocytes Abs Auto 0.03 0.00-0.03 10 3/uL Performing Lab: see note ML - [facility] LB PROF 14(COMP METB) Reviewed date:02/22/2024 04:23:38 PM Interpretation: Performing Lab: Notes/Report: [facility] , Sodium 136 136-145 mmol/L Potassium 4.8 3.5-5.1 mmol/L Chloride 104 98-107 mmol/L Carbon Dioxide 21.9 21.0-32.0 mmol/L Anion Gap 14.9 Glucose 82 74-106 mg/dL Blood Urea Nitrogen 29.0 7.0-18.0 mg/dL Creatinine 1.30 0.55-1.02 mg/dL Estimated GFR ( Catarina 50 >=60 Estimated GFR (Non- Oma 42 >=60 BUN Creatinine Ratio 22.3 Calcium 8.4 8.5-10.1 mg/dL Bilirubin Total 0.2 0.2-1.0 mg/dL Aspartate Amino Transferase 22 15-37 U/L Alanine Aminotransferase 23 14-59 U/L Alkaline Phosphatase 254 46-116 U/L Total Protein 6.6 6.4-8.2 g/dL Albumin Level 3.3 3.4-5.0 g/dL Globulin 3.3 Albumin Globulin Ratio 1.0 Performing Lab: see note ML - [facility] LB BNP Reviewed date:02/28/2024 07:15:28 PM Interpretation: Performing Lab: Notes/Report: [facility] , NT Pro B Type Natriuretic Pept 1082.0 <=900.0 pg/mL Performing Lab: see note - [facility] LB CBC AUTO DIFF Reviewed date:02/28/2024 07:15:28 PM Interpretation: Performing Lab: Notes/Report: [facility] , White Blood Count 7.0 4.0-11.0 10 3/uL Red Blood Count 2.60 4.20-5.40 10 6/uL Hemoglobin 7.7 12.0-16.0 g/dL Hematocrit 25.1 36.0-48.0 % Mean Corpuscular Volume 96.5 81.0-99.0 fL Mean Corpuscular Hemoglobin 29.6 26.7-34.0 pg Mean Corpuscular HGB Conc 30.7 29.9-35.2 g/dL Red Cell Distribution Width 14.7 11.0-15.0 % Platelet Count 232 150-450 10 3/uL Mean Platelet Volume 8.8 9.5-13.5 fL Neutrophils Percent Auto 67.0 43.0-75.0 % Lymphocytes Percent Auto 17.8 20.5-60.0 % Monocytes Percent Auto 10.6 1.7-12.0 % Eosinophils Percent Auto 3.6 0.9-7.0 % Basophils Percent Auto 0.6 0.2-2.0 % Immature Granulocytes Pct Auto 0.4 0.0-0.5 % Neutrophils Absolute Auto 4.7 1.4-6.5 10 3/uL Lymphocytes Absolute Auto 1.2 1.2-3.8 10 3/uL Monocytes Absolute Auto 0.7 0.3-0.8 10 3/uL Eosinophils Absolute Auto 0.3 0.0-0.7 10 3/uL Basophils Absolute Auto 0.0 0.0-0.1 10 3/uL Immature Granulocytes Abs Auto 0.03 0.00-0.03 10 3/uL Performing Lab: see note ML - [facility] LB D-DIMER Reviewed date:02/28/2024 07:15:28 PM Interpretation: Performing Lab: Notes/Report: [facility] , D Dimer 1.09 <=0.59 mg/L FEU RESULTS CALLED TO DANAY YODER RN @BY Roseann Rowe at 0352 Increases in D-Dimer concentration observed with thromboembolic events can be variable due to localization, size, and age of the thrombus. Therefore, a thromboembolic event cannot be diagnosed with certainty on the basis of the reference range. D-Dimers may also be elevated for a variety of disorders including advanced age, , coronary disease, cancer, liver disease, infection, inflammation, hematoma, DIC, trauma, post-surgery, diabetes, thrombolytic or anticoagulant therapy, stress, and generalized hospitalization. Performing Lab: see note ML - [facility] LB PROF 14(COMP METB) Reviewed date:02/28/2024 07:15:28 PM Interpretation: Performing Lab: Notes/Report: [facility] , Sodium 134 136-145 mmol/L Potassium 5.2 3.5-5.1 mmol/L Chloride 103 98-107 mmol/L Carbon Dioxide 24.5 21.0-32.0 mmol/L Anion Gap 11.7 Glucose 82 74-106 mg/dL Blood Urea Nitrogen 52.0 7.0-18.0 mg/dL Creatinine 2.10 0.55-1.02 mg/dL Estimated GFR ( Catarina 29 >=60 Estimated GFR (Non- Oma 24 >=60 BUN Creatinine Ratio 24.8 Calcium 8.0 8.5-10.1 mg/dL Bilirubin Total 0.2 0.2-1.0 mg/dL Aspartate Amino Transferase 22 15-37 U/L Alanine Aminotransferase 22 14-59 U/L Alkaline Phosphatase 240 46-116 U/L Total Protein 6.1 6.4-8.2 g/dL Albumin Level 2.9 3.4-5.0 g/dL Globulin 3.2 Albumin Globulin Ratio 0.9 Performing Lab: see note - [facility] LB Prothrombin Time INR Reviewed date:02/28/2024 07:15:28 PM Interpretation: Performing Lab: Notes/Report: [facility] , Prothrombin Time 10.3 9.0-11.6 sec INR 0.97 DESIRED INR: 2.0-3.0 CONDITIONS NOT LISTED BELOW 2.5-3.5 FOR PROSTHETIC HEART VALVE REPLACEMENT 2.5-3.5 RECURRENT THROMBOSIS Performing Lab: see note - [facility] LB Packed Red Blood Cells Reviewed date:02/29/2024 06:05:33 PM Interpretation: Performing Lab: Notes/Report: Packed Red Blood Cells [id number] OP RC TRANSFUSED 02/29/24 1020 CBC AUTO DIFF Reviewed date:03/03/2024 08:04:10 PM Interpretation: Performing Lab: Notes/Report: [facility] , White Blood Count 6.6 4.0-11.0 10 3/uL Red Blood Count 2.86 4.20-5.40 10 6/uL Hemoglobin 8.2 12.0-16.0 g/dL Hematocrit 27.0 36.0-48.0 % Mean Corpuscular Volume 94.4 81.0-99.0 fL Mean Corpuscular Hemoglobin 28.7 26.7-34.0 pg Mean Corpuscular HGB Conc 30.4 29.9-35.2 g/dL Red Cell Distribution Width 14.6 11.0-15.0 % Platelet Count 254 150-450 10 3/uL Mean Platelet Volume 8.8 9.5-13.5 fL Neutrophils Percent Auto 65.2 43.0-75.0 % Lymphocytes Percent Auto 20.0 20.5-60.0 % Monocytes Percent Auto 10.0 1.7-12.0 % Eosinophils Percent Auto 3.9 0.9-7.0 % Basophils Percent Auto 0.3 0.2-2.0 % Immature Granulocytes Pct Auto 0.6 0.0-0.5 % Neutrophils Absolute Auto 4.3 1.4-6.5 10 3/uL Lymphocytes Absolute Auto 1.3 1.2-3.8 10 3/uL Monocytes Absolute Auto 0.7 0.3-0.8 10 3/uL Eosinophils Absolute Auto 0.3 0.0-0.7 10 3/uL Basophils Absolute Auto 0.0 0.0-0.1 10 3/uL Immature Granulocytes Abs Auto 0.04 0.00-0.03 10 3/uL Performing Lab: see note ML - [facility] LB PROF 14(COMP METB) Reviewed date:03/03/2024 08:04:10 PM Interpretation: Performing Lab: Notes/Report: [facility] , Sodium 131 136-145 mmol/L Potassium 4.5 3.5-5.1 mmol/L Chloride 98 98-107 mmol/L Carbon Dioxide 27.3 21.0-32.0 mmol/L Anion Gap 10.2 Glucose 80 74-106 mg/dL Blood Urea Nitrogen 48.0 7.0-18.0 mg/dL Creatinine 1.59 0.55-1.02 mg/dL Estimated GFR ( Catarina 40 >=60 Estimated GFR (Non- Oma 33 >=60 BUN Creatinine Ratio 30.2 Calcium 8.0 8.5-10.1 mg/dL Bilirubin Total 0.1 0.2-1.0 mg/dL Aspartate Amino Transferase 20 15-37 U/L Alanine Aminotransferase 19 14-59 U/L Alkaline Phosphatase 216 46-116 U/L Total Protein 5.9 6.4-8.2 g/dL Albumin Level 2.7 3.4-5.0 g/dL Globulin 3.2 Albumin Globulin Ratio 0.8 Performing Lab: see note ML - [facility] LB CBC AUTO DIFF Reviewed date:03/05/2024 10:17:14 PM Interpretation: Performing Lab: Notes/Report: [facility] , White Blood Count 7.6 4.0-11.0 10 3/uL Red Blood Count 3.07 4.20-5.40 10 6/uL Hemoglobin 8.9 12.0-16.0 g/dL Hematocrit 28.3 36.0-48.0 % Mean Corpuscular Volume 92.2 81.0-99.0 fL Mean Corpuscular Hemoglobin 29.0 26.7-34.0 pg Mean Corpuscular HGB Conc 31.4 29.9-35.2 g/dL Red Cell Distribution Width 14.6 11.0-15.0 % Platelet Count 314 150-450 10 3/uL Mean Platelet Volume 9.1 9.5-13.5 fL Neutrophils Percent Auto 76.4 43.0-75.0 % Lymphocytes Percent Auto 14.3 20.5-60.0 % Monocytes Percent Auto 7.6 1.7-12.0 % Eosinophils Percent Auto 1.0 0.9-7.0 % Basophils Percent Auto 0.4 0.2-2.0 % Immature Granulocytes Pct Auto 0.3 0.0-0.5 % Neutrophils Absolute Auto 5.8 1.4-6.5 10 3/uL Lymphocytes Absolute Auto 1.1 1.2-3.8 10 3/uL Monocytes Absolute Auto 0.6 0.3-0.8 10 3/uL Eosinophils Absolute Auto 0.1 0.0-0.7 10 3/uL Basophils Absolute Auto 0.0 0.0-0.1 10 3/uL Immature Granulocytes Abs Auto 0.02 0.00-0.03 10 3/uL Performing Lab: see note ML - [facility] LB PROF 14(COMP METB) Reviewed date:03/05/2024 10:17:14 PM Interpretation: Performing Lab: Notes/Report: [facility] , Sodium 133 136-145 mmol/L Potassium 4.0 3.5-5.1 mmol/L Chloride 98 98-107 mmol/L Carbon Dioxide 26.5 21.0-32.0 mmol/L Anion Gap 12.5 Glucose 106 74-106 mg/dL Blood Urea Nitrogen 60.0 7.0-18.0 mg/dL Creatinine 1.54 0.55-1.02 mg/dL Estimated GFR ( Catarina 41 >=60 Estimated GFR (Non- Oma 34 >=60 BUN Creatinine Ratio 39.0 Calcium 8.3 8.5-10.1 mg/dL Bilirubin Total 0.4 0.2-1.0 mg/dL Aspartate Amino Transferase 23 15-37 U/L Alanine Aminotransferase 21 14-59 U/L Alkaline Phosphatase 217 46-116 U/L Total Protein 6.6 6.4-8.2 g/dL Albumin Level 3.2 3.4-5.0 g/dL Globulin 3.4 Albumin Globulin Ratio 0.9 Performing Lab: see note ML - [facility] LB CBC AUTO DIFF Reviewed date:03/13/2024 05:07:26 PM Interpretation: Performing Lab: Notes/Report: [facility] , White Blood Count 6.9 4.0-11.0 10 3/uL Red Blood Count 3.12 4.20-5.40 10 6/uL Hemoglobin 9.0 12.0-16.0 g/dL Hematocrit 29.2 36.0-48.0 % Mean Corpuscular Volume 93.6 81.0-99.0 fL Mean Corpuscular Hemoglobin 28.8 26.7-34.0 pg Mean Corpuscular HGB Conc 30.8 29.9-35.2 g/dL Red Cell Distribution Width 14.7 11.0-15.0 % Platelet Count 334 150-450 10 3/uL Mean Platelet Volume 9.0 9.5-13.5 fL Neutrophils Percent Auto 71.5 43.0-75.0 % Lymphocytes Percent Auto 15.2 20.5-60.0 % Monocytes Percent Auto 9.8 1.7-12.0 % Eosinophils Percent Auto 2.8 0.9-7.0 % Basophils Percent Auto 0.4 0.2-2.0 % Immature Granulocytes Pct Auto 0.3 0.0-0.5 % Neutrophils Absolute Auto 4.9 1.4-6.5 10 3/uL Lymphocytes Absolute Auto 1.0 1.2-3.8 10 3/uL Monocytes Absolute Auto 0.7 0.3-0.8 10 3/uL Eosinophils Absolute Auto 0.2 0.0-0.7 10 3/uL Basophils Absolute Auto 0.0 0.0-0.1 10 3/uL Immature Granulocytes Abs Auto 0.02 0.00-0.03 10 3/uL Performing Lab: see note ML - [facility] LB PROF 14(COMP METB) Reviewed date:03/13/2024 05:07:26 PM Interpretation: Performing Lab: Notes/Report: [facility] , Sodium 133 136-145 mmol/L Potassium 4.4 3.5-5.1 mmol/L Chloride 100 98-107 mmol/L Carbon Dioxide 24.2 21.0-32.0 mmol/L Anion Gap 13.2 Glucose 92 74-106 mg/dL Blood Urea Nitrogen 64.0 7.0-18.0 mg/dL Creatinine 1.51 0.55-1.02 mg/dL Estimated GFR ( Catarina 42 >=60 Estimated GFR (Non- Oma 35 >=60 BUN Creatinine Ratio 42.4 Calcium 8.2 8.5-10.1 mg/dL Bilirubin Total 0.3 0.2-1.0 mg/dL Aspartate Amino Transferase 29 15-37 U/L Alanine Aminotransferase 23 14-59 U/L Alkaline Phosphatase 254 46-116 U/L Total Protein 7.0 6.4-8.2 g/dL Albumin Level 3.5 3.4-5.0 g/dL Globulin 3.5 Albumin Globulin Ratio 1.0 Performing Lab: see note ML - [facility] LB Osmolality Reviewed date:03/17/2024 08:58:04 PM Interpretation: Performing Lab: Notes/Report: [facility] , Osmolality 301 280-301 mOsmol/kg Performed at: [facility] [address] [id number] Psychotherapist: Nicolas Arenas MD, Phone: [phone] Performing Lab: see note LC - [facility] LB XR shoulder LT min 2V Reviewed date:03/15/2024 08:16:20 AM Interpretation: Performing Lab: Notes/Report: Source Facility: [place] [address] XRay Report Signed Patient: JOSE MOSER MR#: [id number] : 1960 Acct:[id number] Age/Sex: 64 / F ADM Date: 03/13/24 Loc: RAD Attending Dr: Angle Godinez M.D. Ordering Physician: Angle Godinez M.D. Date of Service: 03/13/24 Procedure(s): XR shoulder LT min 2V Accession Number(s): [id number] cc: Angle Godinez M.D. [place] [address] Patient Name: JOSE MOSER MRN: [id number] date: 1960 Sex: F Assigned Patient Location: RAD Current Patient Location: RAD Accession/Order Number: [id number] Exam Date: 03/13/2024 11:45 Report Date: 03/15/2024 07:38 At the request of: ANGLE GODINEZ Procedure: XR shoulder LT min 2V PROCEDURE: XR shoulder LT min 2V COMPARISON: None. HISTORY: shoulder pain, left M25.512 FINDINGS: BONES:No acute fracture or dislocation. Mild degenerative changes with joint space narrowing. Moderate degenerative changes of the spine with dextrocurvature. SOFT TISSUES:Negative. No visible soft tissue swelling. EFFUSION:None visible. OTHER: Negative. XR/XR shoulder LT min 2V IMPRESSION: Mild glenohumeral joint osteoarthritis Electronically authenticated by: CARLOS ALCALA Date: 03/15/2024 07:38 Dictated By: Carlos Alcala M.D. Signed By: 03/15/2440 DD/ TD/TT: Bus Starter: [place] [address] XRay Report Signed Patient: ARSLAN MOSER MR#: [id number] : 1960 Acct:[id number] Age/Sex: 64 / F ADM Date: 03/13/24 Loc: RAD Attending Dr: Charlette Godinez M.D. Ordering Physician: Angle Godinez M.D. Date of Service: 03/13/24 Procedure(s): XR allyssa ulder LT min 2V Accession Number(s): [id number] cc: Angle Godinez M.D. [place] [id number] Patient Name: JOSE MOSER MRN: [id number] date: 1960 Sex: F Assigned Patient Location: RAD Current Patient Loca tion: RAD Accession/Order Numb er: [id number] Exam Date: 03/13/2024 11:45 Report Date: 03/15/2024 07:38 At the request of: ANGLE GODINEZ Procedure: XR should er LT min 2V PROCEDURE: XR should er LT min 2V COMPARISON: None. HISTORY: shoulder pa in, left M25.512 FINDINGS: BONES:No acute fract ure or dislocation. Mild degenerative changes with joint space narrowing. Mod erate degenerative changes of the spine with dextrocurvature. SOFT TISSUES:Negativ e. No visible soft tissue swelling. EFFUSION:None visible. OTHER: Negative. X R/XR shoulder LT min 2V IMPRESSION: Mild glenohumeral anthony int osteoarthritis Electronically authenticated by: CARLOS ALCALA Date: 03/15/2024 07:38 Dictated By: Yayo Alcala M.D. Signed By: 03/15/2440 DD/ TD/TT: Bus Starter: CBC AUTO DIFF Reviewed date:03/19/2024 07:55:12 PM Interpretation: Performing Lab: Notes/Report: [facility] , White Blood Count 6.6 4.0-11.0 10 3/uL Red Blood Count 2.99 4.20-5.40 10 6/uL Hemoglobin 8.8 12.0-16.0 g/dL Hematocrit 28.3 36.0-48.0 % Mean Corpuscular Volume 94.6 81.0-99.0 fL Mean Corpuscular Hemoglobin 29.4 26.7-34.0 pg Mean Corpuscular HGB Conc 31.1 29.9-35.2 g/dL Red Cell Distribution Width 14.9 11.0-15.0 % Platelet Count 268 150-450 10 3/uL Mean Platelet Volume 8.8 9.5-13.5 fL Neutrophils Percent Auto 67.5 43.0-75.0 % Lymphocytes Percent Auto 19.1 20.5-60.0 % Monocytes Percent Auto 10.0 1.7-12.0 % Eosinophils Percent Auto 2.6 0.9-7.0 % Basophils Percent Auto 0.5 0.2-2.0 % Immature Granulocytes Pct Auto 0.3 0.0-0.5 % Neutrophils Absolute Auto 4.5 1.4-6.5 10 3/uL Lymphocytes Absolute Auto 1.3 1.2-3.8 10 3/uL Monocytes Absolute Auto 0.7 0.3-0.8 10 3/uL Eosinophils Absolute Auto 0.2 0.0-0.7 10 3/uL Basophils Absolute Auto 0.0 0.0-0.1 10 3/uL Immature Granulocytes Abs Auto 0.02 0.00-0.03 10 3/uL Performing Lab: see note ML - [facility] LB PROF 14(COMP METB) Reviewed date:03/19/2024 07:55:12 PM Interpretation: Performing Lab: Notes/Report: [facility] , Sodium 133 136-145 mmol/L Potassium 4.1 3.5-5.1 mmol/L Chloride 101 98-107 mmol/L Carbon Dioxide 24.2 21.0-32.0 mmol/L Anion Gap 11.9 Glucose 74 74-106 mg/dL Blood Urea Nitrogen 66.0 7.0-18.0 mg/dL Creatinine 1.60 0.55-1.02 mg/dL Estimated GFR ( Catarina 40 >=60 Estimated GFR (Non- Oma 33 >=60 BUN Creatinine Ratio 41.3 Calcium 8.3 8.5-10.1 mg/dL Bilirubin Total 0.2 0.2-1.0 mg/dL Aspartate Amino Transferase 26 15-37 U/L Alanine Aminotransferase 26 14-59 U/L Alkaline Phosphatase 270 46-116 U/L Total Protein 6.7 6.4-8.2 g/dL Albumin Level 3.3 3.4-5.0 g/dL Globulin 3.4 Albumin Globulin Ratio 1.0 Performing Lab: see note ML - [facility] LB Osmolality Reviewed date:03/22/2024 08:05:29 AM Interpretation: Performing Lab: Notes/Report: [facility] , Osmolality 301 280-301 mOsmol/kg Performed at: [facility] [address] [id number] Psychotherapist: Nicolas Arenas MD, Phone: [phone] Performing Lab: see note - [facility] LB CBC AUTO DIFF Reviewed date:03/27/2024 09:16:56 PM Interpretation: Performing Lab: Notes/Report: [facility] , White Blood Count 7.1 4.0-11.0 10 3/uL Red Blood Count 3.24 4.20-5.40 10 6/uL Hemoglobin 9.3 12.0-16.0 g/dL Hematocrit 30.2 36.0-48.0 % Mean Corpuscular Volume 93.2 81.0-99.0 fL Mean Corpuscular Hemoglobin 28.7 26.7-34.0 pg Mean Corpuscular HGB Conc 30.8 29.9-35.2 g/dL Red Cell Distribution Width 14.7 11.0-15.0 % Platelet Count 263 150-450 10 3/uL Mean Platelet Volume 9.6 9.5-13.5 fL Neutrophils Percent Auto 77.1 43.0-75.0 % Lymphocytes Percent Auto 12.1 20.5-60.0 % Monocytes Percent Auto 7.7 1.7-12.0 % Eosinophils Percent Auto 2.5 0.9-7.0 % Basophils Percent Auto 0.3 0.2-2.0 % Immature Granulocytes Pct Auto 0.3 0.0-0.5 % Neutrophils Absolute Auto 5.5 1.4-6.5 10 3/uL Lymphocytes Absolute Auto 0.9 1.2-3.8 10 3/uL Monocytes Absolute Auto 0.6 0.3-0.8 10 3/uL Eosinophils Absolute Auto 0.2 0.0-0.7 10 3/uL Basophils Absolute Auto 0.0 0.0-0.1 10 3/uL Immature Granulocytes Abs Auto 0.02 0.00-0.03 10 3/uL Performing Lab: see note ML - [facility] LB BNP Reviewed date:03/30/2024 11:38:06 AM Interpretation: Performing Lab: Notes/Report: [facility] , NT Pro B Type Natriuretic Pept 805.0 <=900.0 pg/mL Performing Lab: see note ML - [facility] LB CBC AUTO DIFF Reviewed date:03/30/2024 11:38:06 AM Interpretation: Performing Lab: Notes/Report: [facility] , White Blood Count 6.9 4.0-11.0 10 3/uL Red Blood Count 3.00 4.20-5.40 10 6/uL Hemoglobin 8.7 12.0-16.0 g/dL Hematocrit 28.3 36.0-48.0 % Mean Corpuscular Volume 94.3 81.0-99.0 fL Mean Corpuscular Hemoglobin 29.0 26.7-34.0 pg Mean Corpuscular HGB Conc 30.7 29.9-35.2 g/dL Red Cell Distribution Width 14.8 11.0-15.0 % Platelet Count 244 150-450 10 3/uL Mean Platelet Volume 9.3 9.5-13.5 fL Neutrophils Percent Auto 72.2 43.0-75.0 % Lymphocytes Percent Auto 15.3 20.5-60.0 % Monocytes Percent Auto 9.6 1.7-12.0 % Eosinophils Percent Auto 2.2 0.9-7.0 % Basophils Percent Auto 0.4 0.2-2.0 % Immature Granulocytes Pct Auto 0.3 0.0-0.5 % Neutrophils Absolute Auto 5.0 1.4-6.5 10 3/uL Lymphocytes Absolute Auto 1.1 1.2-3.8 10 3/uL Monocytes Absolute Auto 0.7 0.3-0.8 10 3/uL Eosinophils Absolute Auto 0.2 0.0-0.7 10 3/uL Basophils Absolute Auto 0.0 0.0-0.1 10 3/uL Immature Granulocytes Abs Auto 0.02 0.00-0.03 10 3/uL Performing Lab: see note - [facility] PROF CHEM 8 (BAS METB) Reviewed date:03/30/2024 11:38:06 AM Interpretation: Performing Lab: Notes/Report: [facility] , Sodium 133 136-145 mmol/L Potassium 4.1 3.5-5.1 mmol/L Chloride 100 98-107 mmol/L Carbon Dioxide 24.4 21.0-32.0 mmol/L Anion Gap 12.7 Glucose 102 74-106 mg/dL Blood Urea Nitrogen 62.0 7.0-18.0 mg/dL Creatinine 1.93 0.55-1.02 mg/dL Estimated GFR ( Catarina 32 >=60 mL/min/1.73m 2 Estimated GFR (Non- Oma 26 >=60 mL/min/1.73m 2 BUN Creatinine Ratio 32.1 Calcium 8.5 8.5-10.1 mg/dL Performing Lab: see note - [facility] Troponin I High Sensitivity Reviewed date:03/30/2024 11:38:06 AM Interpretation: Performing Lab: Notes/Report: [facility] , Troponin I High Sensitivity 11.2 4.0-51.3 pg/mL CUT-OFF POINTS HAVE BEEN ESTABLISHED BASED ON THE FOURTH UNIVERSAL DEFINITION OF MYOCARDIAL INFARCTION. THE UPPER REFERENCE LIMIT (URL) OF TROPONIN, DEFINED THE 99TH PERCENTILE OF cTnI DISTRIBUTION IN A REFERENCE POPULATION, HAS BEEN CONFIRMED THE DECISION THRESHOLD FOR SD DIAGNOSIS. 99TH PERCENTILE = 51.4 PG/ML NOTE: HIGH-SENSITIVITY TROPONIN ASSAY IS NOT INTENDED TO BE USED IN ISOLATION BUT SHOULD BE INTERPRETED IN CONJUNCTION WITH OTHER DIAGNOSTIC AND CLINICAL INFORMATION. Performing Lab: see note ML - [facility] LB ECG 12 lead Reviewed date:03/30/2024 11:38:06 AM Interpretation: Performing Lab: Notes/Report: Source Facility: [facility]-[address] [place] [address] [place] [address] Electrocardiograph Report Signed Patient: JOSE MOSER MR#: [id number] : 1960 Acct:[id number] Age/Sex: 64 / F ADM Date: 03/29/24 Loc: MS 220-[address]: Angle Godinez M.D. Ordering Physician: Teressa Gregory M.D. Date of Service: 03/29/24 Procedure(s): ECG 12 lead Accession Number(s): [id number] cc: [facility] Test Date: 2024-03-29 Pat Name: JOSE MOSER Department: Room: - Gender: Female [employer] Operator: : 1960 Requested By: ANGLE GODINEZ Order Number: [id number] Reading MD: ANGLE GODINEZ Measurements Intervals [place] Rate: 72 P: 55 GA: 164 QRS: 29 QRSD: 98 T: 33 QT: 374 QTc: 399 Interpretive Statements 1100 Sinus rhythm 9110 normal ECG Compared to ECG 02/28/2024 02:49:37 Left ventricular hypertrophy no longer present T-wave abnormality no longer present Electronically Signed On 03-30-2024 7:45:25 EDT by ANGLE GODINEZ Dictated By: Angle Godinez M.D. Signed By: 03/30/24 0745 DD/ 1403 TD/TT: Bus Starter: [place] [address] Electrocardiograph Report Signed Patient: ARSLAN MOSER MR#: [id number] : 1960 Acct:[id number] Age/Sex: 64 / F ADM Date: 03/29/24 Loc: MS 220-[address]: Charlette Godinez M.D. Ordering Physician: Teressa Gregory M.D. 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 Signed By: 03/30/24 0745 DD/ 1403 TD/TT: Bus Starter: FL guided needle placement Reviewed date:03/30/2024 11:38:06 AM Interpretation: Performing Lab: Notes/Report: Source Facility: [place] [address] Fluoroscopy Report Signed Patient: JOSE MOSER MR#: [id number] : 1960 Acct:[id number] Age/Sex: 64 / F ADM Date: 03/29/24 Loc: MRI Attending Dr: Angel Godinez M.D. Ordering Physician: Angle Godinez M.D. Date of Service: 03/29/24 Procedure(s): FL guided needle placement Accession Number(s): [id number] cc: Angle Godinez M.D. [place] [id number] Patient Name: JOSE MOSER MRN: TBH:[id number] date: 1960 Sex: F Assigned Patient Location: MRI Current Patient Location: MRI Accession/Order Number: [id number] Exam Date: 03/29/2024 08:45 Report Date: 03/29/2024 10:18 At the request of: ANGLE GODINEZ Procedure: FL guided needle placement EXAMINATION: FL arthrogram shoulder, FL guided needle placement HISTORY: Left Shoulder Pain FLUORO DOSE: 3.85 mGy Reference air kerma (Ka,r) COMPARISON: No relevant comparison available. TECHNIQUE: An arthrogram was performed under fluoroscopic guidance using non-ionic contrast material in the usual sterile manner after obtaining informed consent. Standard level fluoroscopic mode of operation utilized. FINDINGS: JOINT: Left shoulder NEEDLE: 25 gauge, 3.5 spinal needle. MEDICATION: 2 mL buffered 1% lidocaine for subcutaneous anesthesia. Approximately 8 mL injected into joint space consisting of a mixture of 5 mL Omnipaque-240, 5 mL 1% Xylocaine and 0.2 mL Dotarem. TECHNIQUE: Anterior approach under fluoroscopic guidance. CLINICAL: Decreased pain following the injection (7/10 preinjection; 2/10 post injection). COMPLICATIONS: None. OTHER: Negative. FL/FL guided needle placement IMPRESSION: 1. Technically successful arthrogram without complication. 2. Please see separate MRI arthrogram report. Electronically authenticated by: ANG DAVENPORT Date: 03/29/2024 10:18 Dictated By: Ang Davenport M.D. Signed By: 03/29/24 1020 DD/ 1018 TD/TT: Bus Starter: [place] [address] Fluoroscopy Report Signed Patient: ARSLAN MOSER MR#: [id number] : 1960 Acct:[id number] Age/Sex: 64 / F ADM Date: 03/29/24 Loc: MRI Attending Dr: Charlette Godinez M.D. Ordering Physician: Angle Godinez M.D. Date of Service: 03/29/24 Procedure(s): FL joey ded needle placement Accession Number(s): [id number] cc: Angle Godinez M.D. [address] [address] Patient Name: JOSE MOSER MRN: [facility]:[id number] date: 1960 Sex: F Assigned Patient Location: MRI Current Patient Loca tion: MRI Accession/Order Numb er: [id number] Exam Date: 08:45 Report Date: 03/29/2024 10:18 At the request of: ANGLE GODINEZ Procedure: FL guided needle placement EXAMINATION: FL arthrogram shoulder, FL guided needle placement HISTORY: Left Should er Pain FLUORO DOSE: 3.85 mG y Reference air kerma (Ka,r) COMPARISON: No relev ant comparison available. TECHNIQUE: An arthro gram was performed under fluoroscopic guidance using non-ionic contrast material in the usual sterile manner after obtaining informed consent. Standard level fluoroscopic mode of operation utilized. FINDINGS: JOINT: Left shoulder NEEDLE: 25 gauge, 3. 5 spinal needle. MEDICATION: 2 mL buf fered 1% lidocaine for subcutaneous anesthesia. Approximately 8 mL injected into joint space consisting of a mixture of 5 mL Omnipaque-240, 5 mL 1% Xylocaine and 0.2 mL Dotarem. TECHNIQUE: Anterior approach under fluoroscopic guidance. CLINICAL: Decreased pain following the injection (7/10 preinjection; 2/10 post injection). COMPLICATIONS: None. OTHER: Negative. F L/FL guided needle placement IMPRESSION: 1. Technically succe ssful arthrogram without complication. 2. Please see separa te MRI arthrogram report. Electronically authenticated by: ANG DAVENPORT Date: 03/29/2024 10:18 Dictated By: Ang Davenport M.D. Signed By: 03/29/24 1020 DD/ 1018 TD/TT: Bus Starter: SALVADOR pedersen 1V Reviewed date:03/30/2024 11:38:06 AM Interpretation: Performing Lab: Notes/Report: Source Facility: [place] [address] [place] [address] XRay Report Signed Patient: JOSE MOSER MR#: [id number] : 1960 Acct:[id number] Age/Sex: 64 / F ADM Date: 03/29/24 Loc: ER Attending Dr: Ordering Physician: Teressa Gregory M.D. Date of Service: 03/29/24 Procedure(s): XR chest 1V Accession Number(s): [id number] cc: Angle Godinez M.D.; Teressa Gregory M.D. The [address] [address] Patient Name: JOSE MOSER MRN: [facility]:[id number] date: 1960 Sex: F Assigned Patient Location: ED.MAIN Current Patient Location: ER Accession/Order Number: [id number] Exam Date: 03/29/2024 14:07 Report Date: 03/29/2024 14:43 At the request of: TERESSA GREGORY Procedure: XR chest 1V EXAMINATION: XR chest 1V HISTORY: Fluid retention, shortness of breath COMPARISON: XR chest 02/28/2024 FINDINGS: LUNGS: Lungs with mild stranding in right lung base and minimal haziness within lateral left lung base. VASCULATURE: No increased pulmonary vasculature. PLEURA: No pneumothorax, effusion, or pleural thickening. CARDIAC: Stable cardiomegaly. MEDIASTINUM: No visible mass or adenopathy. BONES: No fracture or visible bone lesion. OTHER: Right chest wall Port-A-Cath with tip in superior vena cava. XR/XR chest 1V IMPRESSION: 1. Low lung volume examination with trace amount of bibasilar atelectasis versus infiltrates; slightly changed compared to prior study. Electronically authenticated by: ANG DAVENPORT Date: 03/29/2024 14:43 Dictated By: Ang Davenport M.D. Signed By: 03/29/24 1445 DD/ 1443 TD/TT: Bus Starter: [place] [address] XRay Report Signed Patient: ARSLAN MOSER MR#: [id number] : 1960 Acct:[id number] Age/Sex: 64 / F ADM Date: 03/29/24 Loc: ER Attending Dr: Ordering Physician: Teressa Gregory M.D. Date of Service: 03/29/24 Procedure(s): XR chest 1V Accession Number(s): [id number] cc: Angle Godinez M.D. ; Teressa Gregory M.D. The [place] [address] Patient Name: JOSE MOSER MRN: [id number]:[id number] date: 1960 Sex: F Assigned Patient Location: ED.MAIN Current Patient Loca tion: ER Accession/Order Numb er: [id number] Exam Date: 14:07 Report Date: 03/29/2024 14:43 At the request of: TERESSA GREGORY Procedure: XR chest 1V EXAMINATION: XR chest 1V HISTORY: Fluid reten tion, shortness of breath COMPARISON: XR chest 02/28/2024 FINDINGS: LUNGS: Lungs with mild stra nding in right lung base and minimal haziness within lateral left lung base. VASCULATURE: No incr eased pulmonary vasculature. PLEURA: No pneumotho rax, effusion, or pleural thickening. CARDIAC: Stable cardiomegaly. MEDIASTINUM: No visi ble mass or adenopathy. BONES: No fracture o r visible bone lesion. OTHER: Right chest w all Port-A-Cath with tip in superior vena cava. X R/XR chest 1V IMPRESSION: 1. Low lung volume examination with trace amount of bibasilar atelectasis versus infiltrates; slightly changed compared to prior study. Electronically authenticated by: ANG DAVENPORT Date: 03/29/2024 14:43 Dictated By: Ang Davenport M.D. Signed By: 03/29/24 1445 DD/ 1443 TD/TT: Bus Starter: KIARA arthrogram shoulder Reviewed date:03/30/2024 11:38:06 AM Interpretation: Performing Lab: Notes/Report: Source Facility: [facility]-[address] [place] [address] [place] [address] Fluoroscopy Report Signed Patient: JOSE MOSER MR#: [id number] : 1960 Acct:[id number] Age/Sex: 64 / F ADM Date: 03/29/24 Loc: MRI Attending Dr: Angle Godinez M.D. Ordering Physician: Angle Godinez M.D. Date of Service: 03/29/24 Procedure(s): FL arthrogram shoulder Accession Number(s): [id number] cc: Angle Godinez M.D. [place] [address] Patient Name: JOSE MOSER MRN: [facility]:[id number] date: 1960 Sex: F Assigned Patient Location: MRI Current Patient Location: MRI Accession/Order Number: [id number] Exam Date: 03/29/2024 08:45 Report Date: 03/29/2024 10:18 At the request of: ANGLE GODINEZ Procedure: FL arthrogram shoulder EXAMINATION: FL arthrogram shoulder, FL guided needle placement HISTORY: Left Shoulder Pain FLUORO DOSE: 3.85 mGy Reference air kerma (Ka,r) COMPARISON: No relevant comparison available. TECHNIQUE: An arthrogram was performed under fluoroscopic guidance using non-ionic contrast material in the usual sterile manner after obtaining informed consent. Standard level fluoroscopic mode of operation utilized. FINDINGS: JOINT: Left shoulder NEEDLE: 25 gauge, 3.5 spinal needle. MEDICATION: 2 mL buffered 1% lidocaine for subcutaneous anesthesia. Approximately 8 mL injected into joint space consisting of a mixture of 5 mL Omnipaque-240, 5 mL 1% Xylocaine and 0.2 mL Dotarem. TECHNIQUE: Anterior approach under fluoroscopic guidance. CLINICAL: Decreased pain following the injection (7/10 preinjection; 2/10 post injection). COMPLICATIONS: None. OTHER: Negative. FL/FL arthrogram shoulder IMPRESSION: 1. Technically successful arthrogram without complication. 2. Please see separate MRI arthrogram report. Electronically authenticated by: ANG DAVENPORT Date: 03/29/2024 10:18 Dictated By: Ang Davenport M.D. Signed By: 03/29/24 1020 DD/ 1018 TD/TT: Bus Starter: [place] [address] Fluoroscopy Report Signed Patient: ARSLAN MOSER MR#: [id number] : 1960 Acct:[id number] Age/Sex: 64 / F ADM Date: 03/29/24 Loc: MRI Attending Dr: Charlette Godinez M.D. Ordering Physician: Angle Godinez M.D. Date of Service: 03/29/24 Procedure(s): FL arthrogram shoulder Accession Number(s): [id number] cc: Angle Godinez M.D. [place] [address] Patient Name: JOSE MOSER MRN: [id number] date: 1960 Sex: F Assigned Patient Location: MRI Current Patient Loca tion: MRI Accession/Order Numb er: [id number] Exam Date: 08:45 Report Date: 03/29/2024 10:18 At the request of: ANGLE GODINEZ Procedure: FL arthro gram shoulder EXAMINATION: FL arthrogram shoulder, FL guided needle placement HISTORY: Left Should er Pain FLUORO DOSE: 3.85 mG y Reference air kerma (Ka,r) COMPARISON: No relev ant comparison available. TECHNIQUE: An arthro gram was performed under fluoroscopic guidance using non-ionic contrast material in the usual sterile manner after obtaining informed consent. Standard level fluoroscopic mode of operation utilized. FINDINGS: JOINT: Left shoulder NEEDLE: 25 gauge, 3. 5 spinal needle. MEDICATION: 2 mL buf fered 1% lidocaine for subcutaneous anesthesia. Approximately 8 mL injected into joint space consisting of a mixture of 5 mL Omnipaque-240, 5 mL 1% Xylocaine and 0.2 mL Dotarem. TECHNIQUE: Anterior approach under fluoroscopic guidance. CLINICAL: Decreased pain following the injection (7/10 preinjection; 2/10 post injection). COMPLICATIONS: None. OTHER: Negative. F L/FL arthrogram shoulder IMPRESSION: 1. Technically succe ssful arthrogram without complication. 2. Please see separa te MRI arthrogram report. Electronically authenticated by: ANG DAVENPORT Date: 03/29/2024 10:18 Dictated By: Ang Davenport M.D. Signed By: 03/29/24 1020 DD/ 1018 TD/TT: Bus Starter: MR shoulder RT w con Reviewed date:03/30/2024 11:38:06 AM Interpretation: Performing Lab: Notes/Report: Source Facility: [place] [address] Magnetic Resonance Report Signed Patient: JOSE MOSER MR#: [id number] : 1960 Acct:[id number] Age/Sex: 64 / F ADM Date: 03/29/24 Loc: MRI Attending Dr: Angle Godinez M.D. Ordering Physician: Angle Godinez M.D. Date of Service: 03/29/24 Procedure(s): MR shoulder RT w con Accession Number(s): [id number] cc: Angle Godinez M.D. [place] [address] Patient Name: JOSE MOSER MRN: [facility]:[id number] date: 1960 Sex: F Assigned Patient Location: MRI Current Patient Location: ED.MAIN Accession/Order Number: [id number] Exam Date: 03/29/2024 10:00 Report Date: 03/29/2024 15:51 At the request of: ANGLE GODINEZ Procedure: MR shoulder RT w con EXAMINATION: MR shoulder RT w con HISTORY: Left Shoulder Pain COMPARISON: No relevant comparison available. TECHNIQUE: A variety of imaging planes and parameters were utilized for visualization of suspected pathology. Images were performed with intra-articular contrast. FINDINGS: ROTATOR CUFF REGION CUFF TENDONS: Tear or retraction of the supraspinatus tendon. Suspect tear of the subscapularis tendon allowing medial displacement of the biceps tendon. CUFF MUSCLES: No significant atrophy. DELTOID: Normal. No significant atrophy or tear. LONG BICEPS TENDON: Suspect medial displacement and possible marked attrition. LABRUM/BICEPS ANCHOR SUPERIOR: No visible labral tear or biceps anchor pathology. ANTERIOR/INFERIOR: No visible tear or attrition. POSTERIOR: No posterior labrum abnormality. CAPSULE ANTERIOR/INFERIOR: No visible capsular laxity or thickening. Type I origin of the middle glenohumeral ligament. POSTERIOR: No visible capsular laxity or thickening. 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 AC LIGAMENTS: No appreciable disruption. CC LIGAMENTS: No appreciable disruption. ACROMION: Normal horizontal (Type I) configuration. SUBACROMIAL BURSA: Moderate amount of fluid within the bursa. HYALINE CARTILAGE: Thinning. OTHER BONES: No appreciable fracture or marrow edema. OTHER OBSERVATIONS: No other appreciable abnormality. MR/MR shoulder RT w con IMPRESSION: 1. Examination is significantly limited by patient motion and positioning. 2. Tear and retraction supraspinous tendon and suspected tear of the subscapularis tendon allowing medial subluxation of the biceps tendon. There may be marked attrition of the biceps tendon. 3. Marked degenerative changes of acromioclavicular joint. 4. Cartilage thinning throughout. Electronically authenticated by: ANG DAVENPORT Date: 03/29/2024 15:51 Dictated By: Ang Davenport M.D. Signed By: 03/29/241552 DD/ 50 TD/TT: Bus Starter: [place] [address] Magnetic Resonance Report Signed Patient: ARSLAN MOSER MR#: [id number] : 1960 Acct:[id number] Age/Sex: 64 / F ADM Date: 03/29/24 Loc: MRI Attending Dr: Charlette Godinez M.D. Ordering Physician: Angle Godinez M.D. Date of Service: 03/29/24 Procedure(s): MR allyssa bauer RT w con Accession Number(s): [id number] cc: Angle Godinez M.D. [place] [address] Patient Name: JOSE MOSER MRN: [id number] date: 1960 Sex: F Assigned Patient Location: MRI Current Patient Loca tion: ED.MAIN Accession/Order Numb er: [id number] Exam Date: 10:00 Report Date: 03/29/2024 15:51 At the request of: ANGLE GODINEZ Procedure: MR miguel er RT w con EXAMINATION: MR dhillon lder RT w con HISTORY: Left Should er Pain COMPARISON: No relev ant comparison available. TECHNIQUE: A variety of imaging planes and parameters were utilized for visualization of suspected pathology. Images were performed with intra-articular contrast. FINDINGS: ROTATOR CUFF REGION CUFF TENDONS: Tear o r retraction of the supraspinatus tendon. Suspect tear of the subscapularis te ndon allowing medial displacement of the biceps tendon. CUFF MUSCLES: No significant atrophy. DELTOID: Normal. No significant atrophy or tear. LONG BICEPS TENDON: Suspect medial displacement and possible marked attrition. LABRUM/BICEPS ANCHOR SUPERIOR: No visible labral tear or biceps anchor pathology. ANTERIOR/INFERIOR: N o visible tear or attrition. POSTERIOR: No material mixer ior labrum abnormality. CAPSULE ANTERIOR/INFERIOR: N o visible capsular laxity or thickening. Type I origin of the middle glenohume ral ligament. POSTERIOR: No visibl e capsular laxity or thickening. AC JOINT REGION AC JOINT: Severe osteoarthropathy with moderate to severe narrowing of the underlying coracoacr omial arch. AC LIGAMENTS: No appreciable disruption. CC LIGAMENTS: No appreciable disruption. ACROMION: Normal horizontal (Type I) configuration. SUBACROMIAL BURSA: Moderate amount of fluid within the bursa. HYALINE CARTILAGE: Thinning. OTHER BONES: No appreciable fracture or marrow edema. OTHER OBSERVATIONS: No other appreciable abnormality. M R/MR shoulder RT w con IMPRESSION: 1. Examination is significantly limited by patient motion and positioning. 2. Tear and retracti on supraspinous tendon and suspected tear of the subscapularis tendon allowing medial subluxation of the biceps tendon. There may be marked attrit ion of the biceps tendon. 3. Marked degenerati ve changes of acromioclavicular joint. 4. Cartilage thinnin g throughout. Electronically authenticated by: ANG DAVENPORT Date: 03/29/2024 15:51 Dictated By: Ang Davenport M.D. Signed By: 03/29/24 1553 DD/ 1551 TD/TT: Bus Starter: OLEGARIO AUTO DIFF Reviewed date:03/30/2024 11:38:06 AM Interpretation: Performing Lab: Notes/Report: [facility] , White Blood Count 5.2 4.0-11.0 10 3/uL Red Blood Count 2.90 4.20-5.40 10 6/uL Hemoglobin 8.3 12.0-16.0 g/dL Hematocrit 27.3 36.0-48.0 % Mean Corpuscular Volume 94.1 81.0-99.0 fL Mean Corpuscular Hemoglobin 28.6 26.7-34.0 pg Mean Corpuscular HGB Conc 30.4 29.9-35.2 g/dL Red Cell Distribution Width 15.0 11.0-15.0 % Platelet Count 225 150-450 10 3/uL Mean Platelet Volume 9.1 9.5-13.5 fL Neutrophils Percent Auto 67.2 43.0-75.0 % Lymphocytes Percent Auto 18.5 20.5-60.0 % Monocytes Percent Auto 10.1 1.7-12.0 % Eosinophils Percent Auto 3.6 0.9-7.0 % Basophils Percent Auto 0.2 0.2-2.0 % Immature Granulocytes Pct Auto 0.4 0.0-0.5 % Neutrophils Absolute Auto 3.5 1.4-6.5 10 3/uL Lymphocytes Absolute Auto 1.0 1.2-3.8 10 3/uL Monocytes Absolute Auto 0.5 0.3-0.8 10 3/uL Eosinophils Absolute Auto 0.2 0.0-0.7 10 3/uL Basophils Absolute Auto 0.0 0.0-0.1 10 3/uL Immature Granulocytes Abs Auto 0.02 0.00-0.03 10 3/uL Performing Lab: see note ML - [facility] LB PROF CHEM 8 (BAS METB) Reviewed date:03/30/2024 11:38:06 AM Interpretation: Performing Lab: Notes/Report: [facility] , Sodium 133 136-145 mmol/L Potassium 3.8 3.5-5.1 mmol/L Chloride 101 98-107 mmol/L Carbon Dioxide 25.3 21.0-32.0 mmol/L Anion Gap 10.5 Glucose 94 74-106 mg/dL Blood Urea Nitrogen 62.0 7.0-18.0 mg/dL Creatinine 1.74 0.55-1.02 mg/dL Estimated GFR ( Catarina 36 >=60 mL/min/1.73m 2 Estimated GFR (Non- Oma 30 >=60 mL/min/1.73m 2 BUN Creatinine Ratio 35.6 Calcium 8.3 8.5-10.1 mg/dL Performing Lab: see note [facility] LB UA RANDOM W or MICROSCOPIC Reviewed date:03/30/2024 11:38:06 AM Interpretation: Performing Lab: Notes/Report: [facility] , Color Urine LT. YELLOW YELLOW Clarity Urine CLEAR CLEAR Specific [place] Urine 1.010 1.005-1.025 pH Urine 6.0 5.0-9.0 Protein Urine NEGATIVE NEG/TRACE mg/dL Glucose Urine UA NEGATIVE NEGATIVE mg/dL Bilirubin Urine NEGATIVE NEGATIVE Ketones Urine NEGATIVE NEGATIVE mg/dL Blood Urine NEGATIVE NEGATIVE Nitrite Urine NEGATIVE NEGATIVE Urobilinogen Urine 0.2 0.2-1.0 EU/dL Leukocyte Esterase Urine NEGATIVE NEGATIVE WBC Urine NONE SEEN NONE SEEN #/HPF RBC Urine NONE SEEN 0-2 #/HPF Bacteria Urine NONE SEEN NONE SEEN #/HPF Mucus Urine NONE SEEN NONE SEEN Squamous Epithelial Cell Urine RARE NONE/RARE #/LPF Crystals Seen? None Seen None Seen #/HPF Cast Seen? NONE SEEN NONE SEEN #/LPF Urine Culture Indicated NO Performing Lab: see note - [facility] LB US venous doppler LE BI Reviewed date:03/30/2024 08:22:14 PM Interpretation: Performing Lab: Notes/Report: Source Facility: [place] [address] Ultrasound Report Signed Patient: JOSE MOSER MR#: [id number] : 1960 Acct:[id number] Age/Sex: 64 / F ADM Date: 03/29/24 Loc: MS 220-[address]: Angle Godinez M.D. Ordering Physician: Angle Godinez M.D. Date of Service: 03/30/24 Procedure(s): US venous doppler LE LT Accession Number(s): [id number] cc: Angle Godinez M.D. [place] [address] Patient Name: JOSE MOSER MRN: [id number] date: 1960 Sex: F Assigned Patient Location: MS Current Patient Location: MS Accession/Order Number: [id number] Exam Date: 03/30/2024 12:15 Report Date: 03/30/2024 15:41 At the request of: ANGLE GODINEZ Procedure: US venous doppler LE LT EXAM: US venous doppler LE LT HISTORY: Left lower post thigh pain, edema COMPARISON: 02/28/2024 TECHNIQUE: Multiple sonographic images of the deep veins of the left lower extremity were obtained, supplemented with Doppler. FINDINGS: The deep veins of the left lower extremity are fairly well-visualized the groin to the mid calf. No filling defect is identified to indicate a thrombus. There is normal compression augmentation of flow throughout. US/US venous doppler LE LT IMPRESSION: There is no direct or indirect evidence of deep vein thrombosis in the left lower extremity at this time. Similar findings were noted in the prior study. Electronically authenticated by: RAGINI LIMON Date: 03/30/2024 15:41 Dictated By: Ragini Limon M.D. Signed By: 03/30/24 1544 DD/ 154 TD/TT: Bus Starter: [place] [address] Ultrasound Report Signed Patient: ARSLAN MOSER MR#: [id number] : 1960 Acct:[id number] Age/Sex: 64 / F ADM Date: 03/29/24 Loc: MS 220-[address]: Charlette Godinez M.D. Ordering Physician: Angle Godinez M.D. Date of Service: 03/30/24 Procedure(s): US saw ous doppler LE LT Accession Number(s): [id number] cc: Angle Godinez M.D. [place] [id number] Patient Name: JOSE MOSER MRN: [id number] date: 1960 Sex: F Assigned Patient Location: MS Current Patient Loca tion: MS Accession/Order Numb er: [id number] Exam Date: 12:15 Report Date: 03/30/2024 15:41 At the request of: ANGLE GODINEZ Procedure: US venous doppler LE LT EXAM: US venous dopp ler LE LT HISTORY: Left lower post thigh pain, edema COMPARISON: 02/28/2024 TECHNIQUE: Multiple sonographic images of the deep veins of the left lower extremity were obtai will, supplemented with Doppler. FINDINGS: The deep v eins of the left lower extremity are fairly well-visualized the groin to the mid calf. No filling defect is identified to indicate a thrombus. There is n ormal compression augmentation of flow throughout. U S/US venous doppler LE LT IMPRESSION: There is no direct o r indirect evidence of deep vein thrombosis in the left lower extremity at t his time. Similar findings were noted in the prior study. Electronically authenticated by: RAGINI LIMON Date: 03/30/2024 15:41 Dictated By: Troy Limon M.D. Signed By: 03/30/24 1544 DD/ 1541 TD/TT: Bus Starter: CBC AUTO DIFF Reviewed date:04/06/2024 03:22:17 PM Interpretation: Performing Lab: Notes/Report: [facility] , White Blood Count 7.1 4.0-11.0 10 3/uL Red Blood Count 2.98 4.20-5.40 10 6/uL Hemoglobin 8.4 12.0-16.0 g/dL Hematocrit 28.0 36.0-48.0 % Mean Corpuscular Volume 94.0 81.0-99.0 fL Mean Corpuscular Hemoglobin 28.2 26.7-34.0 pg Mean Corpuscular HGB Conc 30.0 29.9-35.2 g/dL Red Cell Distribution Width 14.7 11.0-15.0 % Platelet Count 288 150-450 10 3/uL Mean Platelet Volume 9.4 9.5-13.5 fL Neutrophils Percent Auto 71.8 43.0-75.0 % Lymphocytes Percent Auto 14.8 20.5-60.0 % Monocytes Percent Auto 9.9 1.7-12.0 % Eosinophils Percent Auto 2.8 0.9-7.0 % Basophils Percent Auto 0.3 0.2-2.0 % Immature Granulocytes Pct Auto 0.4 0.0-0.5 % Neutrophils Absolute Auto 5.1 1.4-6.5 10 3/uL Lymphocytes Absolute Auto 1.0 1.2-3.8 10 3/uL Monocytes Absolute Auto 0.7 0.3-0.8 10 3/uL Eosinophils Absolute Auto 0.2 0.0-0.7 10 3/uL Basophils Absolute Auto 0.0 0.0-0.1 10 3/uL Immature Granulocytes Abs Auto 0.03 0.00-0.03 10 3/uL Performing Lab: see note - [facility] LB PROF 14(COMP METB) Reviewed date:04/06/2024 03:22:17 PM Interpretation: Performing Lab: Notes/Report: [facility] , Sodium 133 136-145 mmol/L Potassium 3.8 3.5-5.1 mmol/L Chloride 99 98-107 mmol/L Carbon Dioxide 25.6 21.0-32.0 mmol/L Anion Gap 12.2 Glucose 87 74-106 mg/dL Blood Urea Nitrogen 77.0 7.0-18.0 mg/dL RESULT S CALLED TO Creatinine 1.93 0.55-1.02 mg/dL Estimated GFR ( Catarina 32 >=60 mL/min/1.73m 2 Estimated GFR (Non- Oma 26 >=60 mL/min/1.73m 2 BUN Creatinine Ratio 39.9 Calcium 8.7 8.5-10.1 mg/dL Bilirubin Total 0.3 0.2-1.0 mg/dL Aspartate Amino Transferase 28 15-37 U/L Alanine Aminotransferase 24 14-59 U/L Alkaline Phosphatase 253 46-116 U/L Total Protein 6.9 6.4-8.2 g/dL Albumin Level 3.3 3.4-5.0 g/dL Globulin 3.6 Albumin Globulin Ratio 0.9 Performing Lab: see note ML - [facility] LB Osmolality Reviewed date:04/11/2024 12:49:17 PM Interpretation: Performing Lab: Notes/Report: [facility] , Osmolality TNP . mOsmol/kg Test not performed. Insufficient specimen to perform or complete analysis. CONTACTED GUNNAR AT YOUR FACILITY ON 04-11-2024 Performing Lab: see note LC - [facility] LB IRON AND TIBC Reviewed date:04/28/2024 10:46:46 AM Interpretation: Performing Lab: Notes/Report: [facility] , Iron 48.0 50.0-170.0 ug/dL Total Iron Binding Capacity 362.0 250.0-450.0 ug/dL Percent Iron Saturation 13.3 Performing Lab: see note ML - [facility] LB CBC AUTO DIFF Reviewed date:05/22/2024 05:24:02 PM Interpretation: Performing Lab: Notes/Report: [facility] , White Blood Count 5.5 4.0-11.0 10 3/uL Red Blood Count 3.33 4.20-5.40 10 6/uL Hemoglobin 9.5 12.0-16.0 g/dL Hematocrit 31.4 36.0-48.0 % Mean Corpuscular Volume 94.3 81.0-99.0 fL Mean Corpuscular Hemoglobin 28.5 26.7-34.0 pg Mean Corpuscular HGB Conc 30.3 29.9-35.2 g/dL Red Cell Distribution Width 16.4 11.0-15.0 % Platelet Count 220 150-450 10 3/uL Mean Platelet Volume 8.8 9.5-13.5 fL Neutrophils Percent Auto 68.2 43.0-75.0 % Lymphocytes Percent Auto 16.2 20.5-60.0 % Monocytes Percent Auto 9.7 1.7-12.0 % Eosinophils Percent Auto 5.1 0.9-7.0 % Basophils Percent Auto 0.4 0.2-2.0 % Immature Granulocytes Pct Auto 0.4 0.0-0.5 % Neutrophils Absolute Auto 3.8 1.4-6.5 10 3/uL Lymphocytes Absolute Auto 0.9 1.2-3.8 10 3/uL Monocytes Absolute Auto 0.5 0.3-0.8 10 3/uL Eosinophils Absolute Auto 0.3 0.0-0.7 10 3/uL Basophils Absolute Auto 0.0 0.0-0.1 10 3/uL Immature Granulocytes Abs Auto 0.02 0.00-0.03 10 3/uL Performing Lab: see note ML - [facility] LB PROF 14(COMP METB) Reviewed date:05/22/2024 05:24:02 PM Interpretation: Performing Lab: Notes/Report: [facility] , Sodium 135 136-145 mmol/L Potassium 4.5 3.5-5.1 mmol/L Chloride 102 98-107 mmol/L Carbon Dioxide 22.8 21.0-32.0 mmol/L Anion Gap 14.7 Glucose 83 74-106 mg/dL Blood Urea Nitrogen 48.0 7.0-18.0 mg/dL Creatinine 1.72 0.55-1.02 mg/dL Estimated GFR ( Catarina 36 >=60 mL/min/1.73m 2 Estimated GFR (Non- Oma 30 >=60 mL/min/1.73m 2 BUN Creatinine Ratio 27.9 Calcium 8.1 8.5-10.1 mg/dL Bilirubin Total 0.2 0.2-1.0 mg/dL Aspartate Amino Transferase 26 15-37 U/L Alanine Aminotransferase 26 14-59 U/L Alkaline Phosphatase 240 46-116 U/L Total Protein 6.6 6.4-8.2 g/dL Albumin Level 3.2 3.4-5.0 g/dL Globulin 3.4 Albumin Globulin Ratio 0.9 Performing Lab: see note ML - [facility] LB Osmolality Reviewed date:05/26/2024 12:15:00 PM Interpretation: Performing Lab: Notes/Report: [facility] , Osmolality 288 280-301 mOsmol/kg Performed at: - [facility] [address] [id number] Psychotherapist: Nicolas Arenas MD, Phone: [phone] Performing Lab: see note - [facility] LB CBC AUTO DIFF Reviewed date:05/28/2024 08:26:27 PM Interpretation: Performing Lab: Notes/Report: [facility] , White Blood Count 6.8 4.0-11.0 10 3/uL Red Blood Count 3.38 4.20-5.40 10 6/uL Hemoglobin 9.7 12.0-16.0 g/dL Hematocrit 31.6 36.0-48.0 % Mean Corpuscular Volume 93.5 81.0-99.0 fL Mean Corpuscular Hemoglobin 28.7 26.7-34.0 pg Mean Corpuscular HGB Conc 30.7 29.9-35.2 g/dL Red Cell Distribution Width 16.5 11.0-15.0 % Platelet Count 250 150-450 10 3/uL Mean Platelet Volume 9.4 9.5-13.5 fL Neutrophils Percent Auto 77.1 43.0-75.0 % Lymphocytes Percent Auto 9.6 20.5-60.0 % Monocytes Percent Auto 9.1 1.7-12.0 % Eosinophils Percent Auto 3.5 0.9-7.0 % Basophils Percent Auto 0.3 0.2-2.0 % Immature Granulocytes Pct Auto 0.4 0.0-0.5 % Neutrophils Absolute Auto 5.3 1.4-6.5 10 3/uL Lymphocytes Absolute Auto 0.7 1.2-3.8 10 3/uL Monocytes Absolute Auto 0.6 0.3-0.8 10 3/uL Eosinophils Absolute Auto 0.2 0.0-0.7 10 3/uL Basophils Absolute Auto 0.0 0.0-0.1 10 3/uL Immature Granulocytes Abs Auto 0.03 0.00-0.03 10 3/uL Performing Lab: see note - [facility] LB PROF 14(COMP METB) Reviewed date:05/28/2024 08:26:27 PM Interpretation: Performing Lab: Notes/Report: [facility] , Sodium 135 136-145 mmol/L Potassium 4.4 3.5-5.1 mmol/L Chloride 100 98-107 mmol/L Carbon Dioxide 25.3 21.0-32.0 mmol/L Anion Gap 14.1 Glucose 100 74-106 mg/dL Blood Urea Nitrogen 65.0 7.0-18.0 mg/dL Creatinine 1.98 0.55-1.02 mg/dL Estimated GFR ( Catarina 31 >=60 mL/min/1.73m 2 Estimated GFR (Non- Oma 26 >=60 mL/min/1.73m 2 BUN Creatinine Ratio 32.8 Calcium 8.6 8.5-10.1 mg/dL Bilirubin Total 0.2 0.2-1.0 mg/dL Aspartate Amino Transferase 22 15-37 U/L Alanine Aminotransferase 26 14-59 U/L Alkaline Phosphatase 260 46-116 U/L Total Protein 7.2 6.4-8.2 g/dL Albumin Level 3.3 3.4-5.0 g/dL Globulin 3.9 Albumin Globulin Ratio 0.8 Performing Lab: see note ML - [facility] LB CBC AUTO DIFF Reviewed date:06/12/2024 03:53:07 PM Interpretation: Performing Lab: Notes/Report: [facility] , White Blood Count 6.6 4.0-11.0 10 3/uL Red Blood Count 3.52 4.20-5.40 10 6/uL Hemoglobin 10.0 12.0-16.0 g/dL Hematocrit 32.8 36.0-48.0 % Mean Corpuscular Volume 93.2 81.0-99.0 fL Mean Corpuscular Hemoglobin 28.4 26.7-34.0 pg Mean Corpuscular HGB Conc 30.5 29.9-35.2 g/dL Red Cell Distribution Width 17.1 11.0-15.0 % Platelet Count 264 150-450 10 3/uL Mean Platelet Volume 8.8 9.5-13.5 fL Neutrophils Percent Auto 63.2 43.0-75.0 % Lymphocytes Percent Auto 23.8 20.5-60.0 % Monocytes Percent Auto 8.0 1.7-12.0 % Eosinophils Percent Auto 3.9 0.9-7.0 % Basophils Percent Auto 0.6 0.2-2.0 % Immature Granulocytes Pct Auto 0.5 0.0-0.5 % Neutrophils Absolute Auto 4.2 1.4-6.5 10 3/uL Lymphocytes Absolute Auto 1.6 1.2-3.8 10 3/uL Monocytes Absolute Auto 0.5 0.3-0.8 10 3/uL Eosinophils Absolute Auto 0.3 0.0-0.7 10 3/uL Basophils Absolute Auto 0.0 0.0-0.1 10 3/uL Immature Granulocytes Abs Auto 0.03 0.00-0.03 10 3/uL Performing Lab: see note ML - [facility] LB PROF 14(COMP METB) Reviewed date:06/12/2024 03:53:07 PM Interpretation: Performing Lab: Notes/Report: [facility] , Sodium 136 136-145 mmol/L Potassium 4.5 3.5-5.1 mmol/L Chloride 103 98-107 mmol/L Carbon Dioxide 23.3 21.0-32.0 mmol/L Anion Gap 14.2 Glucose 86 74-106 mg/dL Blood Urea Nitrogen 71.0 7.0-18.0 mg/dL Creatinine 2.02 0.55-1.02 mg/dL Estimated GFR ( Catarina 30 >=60 mL/min/1.73m 2 Estimated GFR (Non- Oma 25 >=60 mL/min/1.73m 2 BUN Creatinine Ratio 35.1 Calcium 8.6 8.5-10.1 mg/dL Bilirubin Total 0.2 0.2-1.0 mg/dL Aspartate Amino Transferase 21 15-37 U/L Alanine Aminotransferase 23 14-59 U/L Alkaline Phosphatase 259 46-116 U/L Total Protein 7.3 6.4-8.2 g/dL Albumin Level 3.4 3.4-5.0 g/dL Globulin 3.9 Albumin Globulin Ratio 0.9 Performing Lab: see note - [facility] LB PROF 14(COMP METB) Reviewed date:07/02/2024 03:26:48 PM Interpretation: Performing Lab: Notes/Report: [facility] , Sodium 137 136-145 mmol/L Potassium 3.2 3.5-5.1 mmol/L Chloride 105 98-107 mmol/L Carbon Dioxide 21.8 21.0-32.0 mmol/L Anion Gap 13.4 Glucose 80 74-106 mg/dL Blood Urea Nitrogen 47.0 7.0-18.0 mg/dL Creatinine 1.68 0.55-1.02 mg/dL Estimated GFR ( Catarina 37 >=60 mL/min/1.73m 2 Estimated GFR (Non- Oma 31 >=60 mL/min/1.73m 2 BUN Creatinine Ratio 28.0 Calcium 7.9 8.5-10.1 mg/dL Bilirubin Total 0.3 0.2-1.0 mg/dL Aspartate Amino Transferase 30 15-37 U/L Alanine Aminotransferase 23 14-59 U/L Alkaline Phosphatase 212 46-116 U/L Total Protein 6.0 6.4-8.2 g/dL Albumin Level 2.8 3.4-5.0 g/dL Globulin 3.2 Albumin Globulin Ratio 0.9 Performing Lab: see note - [facility] LB Osmolality Reviewed date:07/12/2024 10:41:16 AM Interpretation: Performing Lab: Notes/Report: [facility] , Osmolality 285 280-301 mOsmol/kg Performed at: - [facility] [id number] Psychotherapist: Nicolas Arenas MD, Phone: [phone] Performing Lab: see note - [facility] LB CBC AUTO DIFF Reviewed date:07/18/2024 12:12:59 PM Interpretation: Performing Lab: Notes/Report: [facility] , White Blood Count 5.7 4.0-11.0 10 3/uL Red Blood Count 3.66 4.20-5.40 10 6/uL Hemoglobin 10.5 12.0-16.0 g/dL Hematocrit 35.1 36.0-48.0 % Mean Corpuscular Volume 95.9 81.0-99.0 fL Mean Corpuscular Hemoglobin 28.7 26.7-34.0 pg Mean Corpuscular HGB Conc 29.9 29.9-35.2 g/dL Red Cell Distribution Width 15.9 11.0-15.0 % Platelet Count 304 150-450 10 3/uL Mean Platelet Volume 8.9 9.5-13.5 fL Neutrophils Percent Auto 70.9 43.0-75.0 % Lymphocytes Percent Auto 16.4 20.5-60.0 % Monocytes Percent Auto 8.9 1.7-12.0 % Eosinophils Percent Auto 2.8 0.9-7.0 % Basophils Percent Auto 0.7 0.2-2.0 % Immature Granulocytes Pct Auto 0.3 0.0-0.5 % Neutrophils Absolute Auto 4.1 1.4-6.5 10 3/uL Lymphocytes Absolute Auto 0.9 1.2-3.8 10 3/uL Monocytes Absolute Auto 0.5 0.3-0.8 10 3/uL Eosinophils Absolute Auto 0.2 0.0-0.7 10 3/uL Basophils Absolute Auto 0.0 0.0-0.1 10 3/uL Immature Granulocytes Abs Auto 0.02 0.00-0.03 10 3/uL Performing Lab: see note ML - [facility] LB CBC AUTO DIFF Reviewed date:08/25/2024 12:31:05 PM Interpretation: Performing Lab: Notes/Report: [facility] , White Blood Count 6.9 4.0-11.0 10 3/uL Red Blood Count 3.41 4.20-5.40 10 6/uL Hemoglobin 10.3 12.0-16.0 g/dL Hematocrit 32.9 36.0-48.0 % Mean Corpuscular Volume 96.5 81.0-99.0 fL Mean Corpuscular Hemoglobin 30.2 26.7-34.0 pg Mean Corpuscular HGB Conc 31.3 29.9-35.2 g/dL Red Cell Distribution Width 14.2 11.0-15.0 % Platelet Count 235 150-450 10 3/uL Mean Platelet Volume 9.5 9.5-13.5 fL Neutrophils Percent Auto 69.9 43.0-75.0 % Lymphocytes Percent Auto 18.5 20.5-60.0 % Monocytes Percent Auto 7.7 1.7-12.0 % Eosinophils Percent Auto 3.1 0.9-7.0 % Basophils Percent Auto 0.4 0.2-2.0 % Immature Granulocytes Pct Auto 0.4 0.0-0.5 % Neutrophils Absolute Auto 4.8 1.4-6.5 10 3/uL Lymphocytes Absolute Auto 1.3 1.2-3.8 10 3/uL Monocytes Absolute Auto 0.5 0.3-0.8 10 3/uL Eosinophils Absolute Auto 0.2 0.0-0.7 10 3/uL Basophils Absolute Auto 0.0 0.0-0.1 10 3/uL Immature Granulocytes Abs Auto 0.03 0.00-0.03 10 3/uL Performing Lab: see note ML - [facility] LB PROF 14(COMP METB) Reviewed date:08/25/2024 12:31:05 PM Interpretation: Performing Lab: Notes/Report: [facility] , Sodium 131 136-145 mmol/L Potassium 4.2 3.5-5.1 mmol/L Chloride 97 98-107 mmol/L Carbon Dioxide 27.9 21.0-32.0 mmol/L Anion Gap 10.3 Glucose 93 74-106 mg/dL Blood Urea Nitrogen 59.0 7.0-18.0 mg/dL Creatinine 2.14 0.55-1.02 mg/dL Estimated GFR ( Catarina 28 >=60 mL/min/1.73m 2 Estimated GFR (Non- Oma 23 >=60 mL/min/1.73m 2 BUN Creatinine Ratio 27.6 Calcium 8.0 8.5-10.1 mg/dL Bilirubin Total 0.1 0.2-1.0 mg/dL Aspartate Amino Transferase 27 15-37 U/L Alanine Aminotransferase 20 14-59 U/L Alkaline Phosphatase 263 46-116 U/L Total Protein 6.9 6.4-8.2 g/dL Albumin Level 3.2 3.4-5.0 g/dL Globulin 3.7 Albumin Globulin Ratio 0.9 Performing Lab: see note ML - [facility] LB Osmolality Reviewed date:08/28/2024 09:03:48 PM Interpretation: Performing Lab: Notes/Report: [facility] , Osmolality 290 280-301 mOsmol/kg Performed at: - [facility] [address] [id number] Psychotherapist: Nicolas Arenas MD, Phone: [phone] Performing Lab: see note - [facility] LB PROF 14(COMP METB) Reviewed date:09/05/2024 06:43:23 PM Interpretation: Performing Lab: Notes/Report: [facility] , Sodium 134 136-145 mmol/L Potassium 3.8 3.5-5.1 mmol/L Chloride 99 98-107 mmol/L Carbon Dioxide 25.5 21.0-32.0 mmol/L Anion Gap 13.3 Glucose 84 74-106 mg/dL Blood Urea Nitrogen 53.0 7.0-18.0 mg/dL Creatinine 2.05 0.55-1.02 mg/dL Estimated GFR ( Catarina 30 >=60 mL/min/1.73m 2 Estimated GFR (Non- Oma 25 >=60 mL/min/1.73m 2 BUN Creatinine Ratio 25.9 Calcium 8.4 8.5-10.1 mg/dL Bilirubin Total 0.2 0.2-1.0 mg/dL Aspartate Amino Transferase 24 15-37 U/L Alanine Aminotransferase 19 14-59 U/L Alkaline Phosphatase 268 46-116 U/L Total Protein 7.1 6.4-8.2 g/dL Albumin Level 3.3 3.4-5.0 g/dL Globulin 3.8 Albumin Globulin Ratio 0.9 Performing Lab: see note ML - [facility] LB CBC AUTO DIFF Reviewed date:09/11/2024 05:38:12 PM Interpretation: Performing Lab: Notes/Report: [facility] , White Blood Count 4.8 4.0-11.0 10 3/uL Red Blood Count 3.25 4.20-5.40 10 6/uL Hemoglobin 9.9 12.0-16.0 g/dL Hematocrit 32.0 36.0-48.0 % Mean Corpuscular Volume 98.5 81.0-99.0 fL Mean Corpuscular Hemoglobin 30.5 26.7-34.0 pg Mean Corpuscular HGB Conc 30.9 29.9-35.2 g/dL Red Cell Distribution Width 14.0 11.0-15.0 % Platelet Count 239 150-450 10 3/uL Mean Platelet Volume 9.0 9.5-13.5 fL Neutrophils Percent Auto 63.2 43.0-75.0 % Lymphocytes Percent Auto 21.3 20.5-60.0 % Monocytes Percent Auto 11.6 1.7-12.0 % Eosinophils Percent Auto 2.9 0.9-7.0 % Basophils Percent Auto 0.6 0.2-2.0 % Immature Granulocytes Pct Auto 0.4 0.0-0.5 % Neutrophils Absolute Auto 3.0 1.4-6.5 10 3/uL Lymphocytes Absolute Auto 1.0 1.2-3.8 10 3/uL Monocytes Absolute Auto 0.6 0.3-0.8 10 3/uL Eosinophils Absolute Auto 0.1 0.0-0.7 10 3/uL Basophils Absolute Auto 0.0 0.0-0.1 10 3/uL Immature Granulocytes Abs Auto 0.02 0.00-0.03 10 3/uL Performing Lab: see note ML - [facility] LB CBC AUTO DIFF Reviewed date:09/15/2024 07:34:53 PM Interpretation: Performing Lab: Notes/Report: [facility] , White Blood Count 4.3 4.0-11.0 10 3/uL Red Blood Count 3.18 4.20-5.40 10 6/uL Hemoglobin 9.8 12.0-16.0 g/dL Hematocrit 31.4 36.0-48.0 % Mean Corpuscular Volume 98.7 81.0-99.0 fL Mean Corpuscular Hemoglobin 30.8 26.7-34.0 pg Mean Corpuscular HGB Conc 31.2 29.9-35.2 g/dL Red Cell Distribution Width 13.7 11.0-15.0 % Platelet Count 219 150-450 10 3/uL Mean Platelet Volume 8.8 9.5-13.5 fL Neutrophils Percent Auto 59.3 43.0-75.0 % Lymphocytes Percent Auto 22.4 20.5-60.0 % Monocytes Percent Auto 14.8 1.7-12.0 % Eosinophils Percent Auto 2.8 0.9-7.0 % Basophils Percent Auto 0.5 0.2-2.0 % Immature Granulocytes Pct Auto 0.2 0.0-0.5 % Neutrophils Absolute Auto 2.6 1.4-6.5 10 3/uL Lymphocytes Absolute Auto 1.0 1.2-3.8 10 3/uL Monocytes Absolute Auto 0.6 0.3-0.8 10 3/uL Eosinophils Absolute Auto 0.1 0.0-0.7 10 3/uL Basophils Absolute Auto 0.0 0.0-0.1 10 3/uL Immature Granulocytes Abs Auto 0.01 0.00-0.03 10 3/uL Performing Lab: see note ML - [facility] LB INFLUENZA A AND B AG Reviewed date:09/15/2024 07:34:53 PM Interpretation: Performing Lab: Notes/Report: [facility] , Influenza Virus A Antigen Negative Negative for Flu A protein antigen. Infection due to Flu A cannot be ruled out. Flu A antigen in the sample may be below the detection limit of the test. Influenza Virus B Antigen Negative Negative for Flu B protein antigen. Infection due to Flu B cannot be ruled out. Flu B antigen in the sample may be below the detection limit of the test. Performing Lab: see note ML - [facility] LB LACTATE or LACTIC ACID Reviewed date:09/16/2024 08:39:55 PM Interpretation: Performing Lab: Notes/Report: [facility] , Lactate/Lactic Acid 0.6 0.4-2.0 mmol/L Performing Lab: see note ML - [facility] LB PROF 14(COMP METB) Reviewed date:09/16/2024 08:39:55 PM Interpretation: Performing Lab: Notes/Report: [facility] , Sodium 135 136-145 mmol/L Potassium 3.7 3.5-5.1 mmol/L Chloride 99 98-107 mmol/L Carbon Dioxide 26.4 21.0-32.0 mmol/L Anion Gap 13.3 Glucose 86 74-106 mg/dL Blood Urea Nitrogen 48.0 7.0-18.0 mg/dL Creatinine 1.88 0.55-1.02 mg/dL Estimated GFR ( Catarina 33 >=60 mL/min/1.73m 2 Estimated GFR (Non- Oma 27 >=60 mL/min/1.73m 2 BUN Creatinine Ratio 25.5 Calcium 8.5 8.5-10.1 mg/dL Bilirubin Total 0.3 0.2-1.0 mg/dL Aspartate Amino Transferase 33 15-37 U/L Alanine Aminotransferase 20 14-59 U/L Alkaline Phosphatase 289 46-116 U/L Total Protein 6.9 6.4-8.2 g/dL Albumin Level 3.2 3.4-5.0 g/dL Globulin 3.7 Albumin Globulin Ratio 0.9 Performing Lab: see note - [facility] LB Prothrombin Time INR Reviewed date:09/16/2024 08:39:55 PM Interpretation: Performing Lab: Notes/Report: [facility] , Prothrombin Time 10.9 9.0-11.6 sec INR 1.03 DESIRED INR: 2.0-3.0 CONDITIONS NOT LISTED BELOW 2.5-3.5 FOR PROSTHETIC HEART VALVE REPLACEMENT 2.5-3.5 RECURRENT THROMBOSIS Performing Lab: see note - [facility] LB MAGNESIUM Reviewed date:09/16/2024 08:39:55 PM Interpretation: Performing Lab: Notes/Report: Comment use blood this am? [facility] , Magnesium 2.1 1.8-2.4 mg/dL Performing Lab: see note [facility] LB PROF CHEM 8 (BAS METB) Reviewed date:09/16/2024 08:39:55 PM Interpretation: Performing Lab: Notes/Report: [facility] , Sodium 137 136-145 mmol/L Potassium 3.5 3.5-5.1 mmol/L Chloride 101 98-107 mmol/L Carbon Dioxide 30.0 21.0-32.0 mmol/L Anion Gap 9.5 Glucose 88 74-106 mg/dL Blood Urea Nitrogen 45.0 7.0-18.0 mg/dL Creatinine 1.76 0.55-1.02 mg/dL Estimated GFR ( Catarina 35 >=60 mL/min/1.73m 2 Estimated GFR (Non- Oma 29 >=60 mL/min/1.73m 2 BUN Creatinine Ratio 25.6 Calcium 8.0 8.5-10.1 mg/dL Performing Lab: see note - [facility] LB CBC no Diff (Hemogram) Reviewed date:09/16/2024 08:39:55 PM Interpretation: Performing Lab: Notes/Report: [facility] , White Blood Count 3.6 4.0-11.0 10 3/uL Red Blood Count 2.98 4.20-5.40 10 6/uL Hemoglobin 9.2 12.0-16.0 g/dL Hematocrit 29.4 36.0-48.0 % Mean Corpuscular Volume 98.7 81.0-99.0 fL Mean Corpuscular Hemoglobin 30.9 26.7-34.0 pg Mean Corpuscular HGB Conc 31.3 29.9-35.2 g/dL Red Cell Distribution Width 13.8 11.0-15.0 % Platelet Count 218 150-450 10 3/uL Mean Platelet Volume 8.9 9.5-13.5 fL Performing Lab: see note ML - [facility] LB CBC AUTO DIFF Reviewed date:09/18/2024 10:55:14 AM Interpretation: Performing Lab: Notes/Report: [facility] , White Blood Count 3.3 4.0-11.0 10 3/uL Red Blood Count 3.02 4.20-5.40 10 6/uL Hemoglobin 9.2 12.0-16.0 g/dL Hematocrit 30.3 36.0-48.0 % Mean Corpuscular Volume 100.3 81.0-99.0 fL Mean Corpuscular Hemoglobin 30.5 26.7-34.0 pg Mean Corpuscular HGB Conc 30.4 29.9-35.2 g/dL Red Cell Distribution Width 13.8 11.0-15.0 % Platelet Count 227 150-450 10 3/uL Mean Platelet Volume 8.9 9.5-13.5 fL Neutrophils Percent Auto 54.0 43.0-75.0 % Lymphocytes Percent Auto 31.9 20.5-60.0 % Monocytes Percent Auto 9.6 1.7-12.0 % Eosinophils Percent Auto 3.3 0.9-7.0 % Basophils Percent Auto 0.6 0.2-2.0 % Immature Granulocytes Pct Auto 0.6 0.0-0.5 % Neutrophils Absolute Auto 1.8 1.4-6.5 10 3/uL Lymphocytes Absolute Auto 1.1 1.2-3.8 10 3/uL Monocytes Absolute Auto 0.3 0.3-0.8 10 3/uL Eosinophils Absolute Auto 0.1 0.0-0.7 10 3/uL Basophils Absolute Auto 0.0 0.0-0.1 10 3/uL Immature Granulocytes Abs Auto 0.02 0.00-0.03 10 3/uL Performing Lab: see note - [facility] LB PROF CHEM 8 (BAS METB) Reviewed date:09/18/2024 10:55:14 AM Interpretation: Performing Lab: Notes/Report: [facility] , Sodium 138 136-145 mmol/L Potassium 3.6 3.5-5.1 mmol/L Chloride 102 98-107 mmol/L Carbon Dioxide 31.1 21.0-32.0 mmol/L Anion Gap 8.5 Glucose 150 74-106 mg/dL Blood Urea Nitrogen 47.0 7.0-18.0 mg/dL Creatinine 1.99 0.55-1.02 mg/dL Estimated GFR ( Catarina 31 >=60 mL/min/1.73m 2 Estimated GFR (Non- Oma 25 >=60 mL/min/1.73m 2 BUN Creatinine Ratio 23.6 Calcium 8.1 8.5-10.1 mg/dL Performing Lab: see note - [facility] LB CBC AUTO DIFF Reviewed date:09/29/2024 03:19:39 PM Interpretation: Performing Lab: Notes/Report: [facility] , White Blood Count 6.7 4.0-11.0 10 3/uL Red Blood Count 3.09 4.20-5.40 10 6/uL Hemoglobin 9.4 12.0-16.0 g/dL Hematocrit 29.8 36.0-48.0 % Mean Corpuscular Volume 96.4 81.0-99.0 fL Mean Corpuscular Hemoglobin 30.4 26.7-34.0 pg Mean Corpuscular HGB Conc 31.5 29.9-35.2 g/dL Red Cell Distribution Width 13.1 11.0-15.0 % Platelet Count 282 150-450 10 3/uL Mean Platelet Volume 8.6 9.5-13.5 fL Neutrophils Percent Auto 73.0 43.0-75.0 % Lymphocytes Percent Auto 14.3 20.5-60.0 % Monocytes Percent Auto 9.3 1.7-12.0 % Eosinophils Percent Auto 2.3 0.9-7.0 % Basophils Percent Auto 0.5 0.2-2.0 % Immature Granulocytes Pct Auto 0.6 0.0-0.5 % Neutrophils Absolute Auto 4.9 1.4-6.5 10 3/uL Lymphocytes Absolute Auto 1.0 1.2-3.8 10 3/uL Monocytes Absolute Auto 0.6 0.3-0.8 10 3/uL Eosinophils Absolute Auto 0.2 0.0-0.7 10 3/uL Basophils Absolute Auto 0.0 0.0-0.1 10 3/uL Immature Granulocytes Abs Auto 0.04 0.00-0.03 10 3/uL Performing Lab: see note - [facility] LB PROF 14(COMP METB) Reviewed date:09/29/2024 03:19:39 PM Interpretation: Performing Lab: Notes/Report: [facility] , Sodium 131 136-145 mmol/L Potassium 4.3 3.5-5.1 mmol/L Chloride 98 98-107 mmol/L Carbon Dioxide 24.9 21.0-32.0 mmol/L Anion Gap 12.4 Glucose 89 74-106 mg/dL Blood Urea Nitrogen 58.0 7.0-18.0 mg/dL Creatinine 2.12 0.55-1.02 mg/dL Estimated GFR ( Catarina 29 >=60 mL/min/1.73m 2 Estimated GFR (Non- Oma 24 >=60 mL/min/1.73m 2 BUN Creatinine Ratio 27.4 Calcium 8.2 8.5-10.1 mg/dL Bilirubin Total 0.2 0.2-1.0 mg/dL Aspartate Amino Transferase 19 15-37 U/L Alanine Aminotransferase 17 14-59 U/L Alkaline Phosphatase 253 46-116 U/L Total Protein 6.7 6.4-8.2 g/dL Albumin Level 3.0 3.4-5.0 g/dL Globulin 3.7 Albumin Globulin Ratio 0.8 Performing Lab: see note ML - [facility] LB Osmolality Reviewed date:09/30/2024 07:08:29 PM Interpretation: Performing Lab: Notes/Report: [facility] , Osmolality 286 280-301 mOsmol/kg Performed at: - [facility] [id number] Psychotherapist: Nicolas Arenas MD, Phone: [phone] Performing Lab: see note LC - [facility] LB FERRITIN Reviewed date:09/29/2024 03:19:39 PM Interpretation: Performing Lab: Notes/Report: [facility] , Ferritin 141.0 8.0-252.0 ng/mL Performing Lab: see note ML - [facility] LB CBC AUTO DIFF Reviewed date:10/07/2024 08:19:45 PM Interpretation: Performing Lab: Notes/Report: [facility] , White Blood Count 7.7 4.0-11.0 10 3/uL Red Blood Count 3.34 4.20-5.40 10 6/uL Hemoglobin 10.1 12.0-16.0 g/dL Hematocrit 32.2 36.0-48.0 % Mean Corpuscular Volume 96.4 81.0-99.0 fL Mean Corpuscular Hemoglobin 30.2 26.7-34.0 pg Mean Corpuscular HGB Conc 31.4 29.9-35.2 g/dL Red Cell Distribution Width 13.3 11.0-15.0 % Platelet Count 279 150-450 10 3/uL Mean Platelet Volume 8.9 9.5-13.5 fL Neutrophils Percent Auto 77.9 43.0-75.0 % Lymphocytes Percent Auto 12.6 20.5-60.0 % Monocytes Percent Auto 7.0 1.7-12.0 % Eosinophils Percent Auto 2.0 0.9-7.0 % Basophils Percent Auto 0.1 0.2-2.0 % Immature Granulocytes Pct Auto 0.4 0.0-0.5 % Neutrophils Absolute Auto 6.0 1.4-6.5 10 3/uL Lymphocytes Absolute Auto 1.0 1.2-3.8 10 3/uL Monocytes Absolute Auto 0.5 0.3-0.8 10 3/uL Eosinophils Absolute Auto 0.2 0.0-0.7 10 3/uL Basophils Absolute Auto 0.0 0.0-0.1 10 3/uL Immature Granulocytes Abs Auto 0.03 0.00-0.03 10 3/uL Performing Lab: see note ML - [facility] LB BNP Reviewed date:10/15/2024 08:28:30 PM Interpretation: Performing Lab: Notes/Report: [facility] , NT Pro B Type Natriuretic Pept 433.0 <=900.0 pg/mL Performing Lab: see note ML - [facility] LB CBC AUTO DIFF Reviewed date:10/15/2024 02:22:26 PM Interpretation: Performing Lab: Notes/Report: [facility] , White Blood Count 5.3 4.0-11.0 10 3/uL Red Blood Count 3.24 4.20-5.40 10 6/uL Hemoglobin 9.8 12.0-16.0 g/dL Hematocrit 31.9 36.0-48.0 % Mean Corpuscular Volume 98.5 81.0-99.0 fL Mean Corpuscular Hemoglobin 30.2 26.7-34.0 pg Mean Corpuscular HGB Conc 30.7 29.9-35.2 g/dL Red Cell Distribution Width 13.4 11.0-15.0 % Platelet Count 235 150-450 10 3/uL Mean Platelet Volume 8.9 9.5-13.5 fL Neutrophils Percent Auto 64.1 43.0-75.0 % Lymphocytes Percent Auto 24.0 20.5-60.0 % Monocytes Percent Auto 8.1 1.7-12.0 % Eosinophils Percent Auto 3.0 0.9-7.0 % Basophils Percent Auto 0.6 0.2-2.0 % Immature Granulocytes Pct Auto 0.2 0.0-0.5 % Neutrophils Absolute Auto 3.4 1.4-6.5 10 3/uL Lymphocytes Absolute Auto 1.3 1.2-3.8 10 3/uL Monocytes Absolute Auto 0.4 0.3-0.8 10 3/uL Eosinophils Absolute Auto 0.2 0.0-0.7 10 3/uL Basophils Absolute Auto 0.0 0.0-0.1 10 3/uL Immature Granulocytes Abs Auto 0.01 0.00-0.03 10 3/uL Performing Lab: see note ML - [facility] LB PROF 14(COMP METB) Reviewed date:10/15/2024 02:22:26 PM Interpretation: Performing Lab: Notes/Report: [facility] , Sodium 135 136-145 mmol/L Potassium 4.3 3.5-5.1 mmol/L Chloride 99 98-107 mmol/L Carbon Dioxide 27.1 21.0-32.0 mmol/L Anion Gap 13.2 Glucose 100 74-106 mg/dL Blood Urea Nitrogen 67.0 7.0-18.0 mg/dL Creatinine 2.11 0.55-1.02 mg/dL Estimated GFR ( Catarina 29 >=60 mL/min/1.73m 2 Estimated GFR (Non- Oma 24 >=60 mL/min/1.73m 2 BUN Creatinine Ratio 31.8 Calcium 8.3 8.5-10.1 mg/dL Bilirubin Total 0.2 0.2-1.0 mg/dL Aspartate Amino Transferase 24 15-37 U/L Alanine Aminotransferase 22 14-59 U/L Alkaline Phosphatase 272 46-116 U/L Total Protein 6.9 6.4-8.2 g/dL Albumin Level 3.3 3.4-5.0 g/dL Globulin 3.6 Albumin Globulin Ratio 0.9 Performing Lab: see note ML - [facility] LB CBC AUTO DIFF Reviewed date:10/16/2024 10:15:17 AM Interpretation: Performing Lab: Notes/Report: [facility] , White Blood Count 4.5 4.0-11.0 10 3/uL Red Blood Count 2.95 4.20-5.40 10 6/uL Hemoglobin 8.9 12.0-16.0 g/dL Hematocrit 29.3 36.0-48.0 % Mean Corpuscular Volume 99.3 81.0-99.0 fL Mean Corpuscular Hemoglobin 30.2 26.7-34.0 pg Mean Corpuscular HGB Conc 30.4 29.9-35.2 g/dL Red Cell Distribution Width 13.4 11.0-15.0 % Platelet Count 185 150-450 10 3/uL Mean Platelet Volume 8.8 9.5-13.5 fL Neutrophils Percent Auto 59.9 43.0-75.0 % Lymphocytes Percent Auto 26.6 20.5-60.0 % Monocytes Percent Auto 10.0 1.7-12.0 % Eosinophils Percent Auto 2.9 0.9-7.0 % Basophils Percent Auto 0.4 0.2-2.0 % Immature Granulocytes Pct Auto 0.2 0.0-0.5 % Neutrophils Absolute Auto 2.7 1.4-6.5 10 3/uL Lymphocytes Absolute Auto 1.2 1.2-3.8 10 3/uL Monocytes Absolute Auto 0.5 0.3-0.8 10 3/uL Eosinophils Absolute Auto 0.1 0.0-0.7 10 3/uL Basophils Absolute Auto 0.0 0.0-0.1 10 3/uL Immature Granulocytes Abs Auto 0.01 0.00-0.03 10 3/uL Performing Lab: see note ML - [facility] LB CBC AUTO DIFF Reviewed date:10/17/2024 01:08:03 PM Interpretation: Performing Lab: Notes/Report: [facility] , White Blood Count 5.9 4.0-11.0 10 3/uL Red Blood Count 2.97 4.20-5.40 10 6/uL Hemoglobin 9.1 12.0-16.0 g/dL Hematocrit 29.7 36.0-48.0 % Mean Corpuscular Volume 100.0 81.0-99.0 fL Mean Corpuscular Hemoglobin 30.6 26.7-34.0 pg Mean Corpuscular HGB Conc 30.6 29.9-35.2 g/dL Red Cell Distribution Width 13.6 11.0-15.0 % Platelet Count 190 150-450 10 3/uL Mean Platelet Volume 9.0 9.5-13.5 fL Neutrophils Percent Auto 74.8 43.0-75.0 % Lymphocytes Percent Auto 15.5 20.5-60.0 % Monocytes Percent Auto 8.1 1.7-12.0 % Eosinophils Percent Auto 1.0 0.9-7.0 % Basophils Percent Auto 0.3 0.2-2.0 % Immature Granulocytes Pct Auto 0.3 0.0-0.5 % Neutrophils Absolute Auto 4.4 1.4-6.5 10 3/uL Lymphocytes Absolute Auto 0.9 1.2-3.8 10 3/uL Monocytes Absolute Auto 0.5 0.3-0.8 10 3/uL Eosinophils Absolute Auto 0.1 0.0-0.7 10 3/uL Basophils Absolute Auto 0.0 0.0-0.1 10 3/uL Immature Granulocytes Abs Auto 0.02 0.00-0.03 10 3/uL Performing Lab: see note ML - [facility] LB PROF CHEM 8 (BAS METB) Reviewed date:10/17/2024 01:08:03 PM Interpretation: Performing Lab: Notes/Report: [facility] , Sodium 141 136-145 mmol/L Potassium 3.8 3.5-5.1 mmol/L Chloride 104 98-107 mmol/L Carbon Dioxide 29.4 21.0-32.0 mmol/L Anion Gap 11.4 Glucose 105 74-106 mg/dL Blood Urea Nitrogen 64.0 7.0-18.0 mg/dL Creatinine 1.80 0.55-1.02 mg/dL Estimated GFR ( Catarina 35 >=60 mL/min/1.73m 2 Estimated GFR (Non- Oma 29 >=60 mL/min/1.73m 2 BUN Creatinine Ratio 35.6 Calcium 8.2 8.5-10.1 mg/dL Performing Lab: see note ML - [facility] LB CBC AUTO DIFF Reviewed date:10/22/2024 03:59:28 PM Interpretation: Performing Lab: Notes/Report: [facility] , White Blood Count 6.5 4.0-11.0 10 3/uL Red Blood Count 3.51 4.20-5.40 10 6/uL Hemoglobin 10.8 12.0-16.0 g/dL Hematocrit 34.2 36.0-48.0 % Mean Corpuscular Volume 97.4 81.0-99.0 fL Mean Corpuscular Hemoglobin 30.8 26.7-34.0 pg Mean Corpuscular HGB Conc 31.6 29.9-35.2 g/dL Red Cell Distribution Width 14.2 11.0-15.0 % Platelet Count 273 150-450 10 3/uL Mean Platelet Volume 9.0 9.5-13.5 fL Neutrophils Percent Auto 71.5 43.0-75.0 % Lymphocytes Percent Auto 19.3 20.5-60.0 % Monocytes Percent Auto 6.9 1.7-12.0 % Eosinophils Percent Auto 1.7 0.9-7.0 % Basophils Percent Auto 0.3 0.2-2.0 % Immature Granulocytes Pct Auto 0.3 0.0-0.5 % Neutrophils Absolute Auto 4.7 1.4-6.5 10 3/uL Lymphocytes Absolute Auto 1.3 1.2-3.8 10 3/uL Monocytes Absolute Auto 0.5 0.3-0.8 10 3/uL Eosinophils Absolute Auto 0.1 0.0-0.7 10 3/uL Basophils Absolute Auto 0.0 0.0-0.1 10 3/uL Immature Granulocytes Abs Auto 0.02 0.00-0.03 10 3/uL Performing Lab: see note ML - [facility] LB Osmolality Reviewed date:10/24/2024 12:21:56 PM Interpretation: Performing Lab: Notes/Report: [facility] , Osmolality 290 280-301 mOsmol/kg Performed at: [address] [id number] Psychotherapist: Nicolas Arenas MD, Phone: [phone] Performing Lab: see note [facility] LB Osmolality Reviewed date:11/16/2024 11:46:04 AM Interpretation: Performing Lab: Notes/Report: [facility] , Osmolality 302 280-301 mOsmol/kg Performed at: [address] [id number] Psychotherapist: Nicolas Arenas MD, Phone: [phone] Performing Lab: see note [facility] LB CBC AUTO DIFF Reviewed date:11/26/2024 04:03:27 PM Interpretation: Performing Lab: Notes/Report: [facility] , White Blood Count 7.4 4.0-11.0 10 3/uL Red Blood Count 3.17 4.20-5.40 10 6/uL Hemoglobin 9.7 12.0-16.0 g/dL Hematocrit 30.6 36.0-48.0 % Mean Corpuscular Volume 96.5 81.0-99.0 fL Mean Corpuscular Hemoglobin 30.6 26.7-34.0 pg Mean Corpuscular HGB Conc 31.7 29.9-35.2 g/dL Red Cell Distribution Width 13.5 11.0-15.0 % Platelet Count 339 150-450 10 3/uL Mean Platelet Volume 8.8 9.5-13.5 fL Neutrophils Percent Auto 73.3 43.0-75.0 % Lymphocytes Percent Auto 14.0 20.5-60.0 % Monocytes Percent Auto 10.7 1.7-12.0 % Eosinophils Percent Auto 1.1 0.9-7.0 % Basophils Percent Auto 0.4 0.2-2.0 % Immature Granulocytes Pct Auto 0.5 0.0-0.5 % Neutrophils Absolute Auto 5.4 1.4-6.5 10 3/uL Lymphocytes Absolute Auto 1.0 1.2-3.8 10 3/uL Monocytes Absolute Auto 0.8 0.3-0.8 10 3/uL Eosinophils Absolute Auto 0.1 0.0-0.7 10 3/uL Basophils Absolute Auto 0.0 0.0-0.1 10 3/uL Immature Granulocytes Abs Auto 0.04 0.00-0.03 10 3/uL Performing Lab: see note - [facility] LB Osmolality Reviewed date:11/30/2024 05:03:08 PM Interpretation: Performing Lab: Notes/Report: [facility] , Osmolality 298 280-301 mOsmol/kg Performed at: [facility] [id number] Psychotherapist: Nicolas Arenas MD, Phone: [phone] Performing Lab: see note - [facility] LB PROF 14(COMP METB) Reviewed date:12/10/2024 12:40:51 PM Interpretation: Performing Lab: Notes/Report: [facility] , Sodium 133 136-145 mmol/L Potassium 4.2 3.5-5.1 mmol/L Chloride 96 98-107 mmol/L Carbon Dioxide 31.7 21.0-32.0 mmol/L Anion Gap 9.5 Glucose 70 74-106 mg/dL Blood Urea Nitrogen 63.0 7.0-18.0 mg/dL Creatinine 1.77 0.55-1.02 mg/dL Estimated GFR ( Catarina 35 >=60 mL/min/1.73m 2 Estimated GFR (Non- Oma 29 >=60 mL/min/1.73m 2 BUN Creatinine Ratio 35.6 Calcium 9.1 8.5-10.1 mg/dL Bilirubin Total 0.2 0.2-1.0 mg/dL Aspartate Amino Transferase 19 15-37 U/L Alanine Aminotransferase 18 14-59 U/L Alkaline Phosphatase 298 46-116 U/L Total Protein 7.0 6.4-8.2 g/dL Albumin Level 3.0 3.4-5.0 g/dL Globulin 4.0 Albumin Globulin Ratio 0.8 Performing Lab: see note ML - [facility] LB MAGNESIUM Reviewed date:01/02/2025 06:15:12 PM Interpretation: Performing Lab: Notes/Report: [facility] , Magnesium 2.9 1.8-2.4 mg/dL Performing Lab: see note ML - [facility] LB MICROALB CREAT RATIO RANDOM Reviewed date:01/02/2025 06:15:12 PM Interpretation: Performing Lab: Notes/Report: [facility] , Microalbumin Urine Random <1.3 <=30.0 mg/dL Creatinine Urine Random 34.82 20.00-30 0.00 mg/dL Performing Lab: see note ML - [facility] LB PHOSPHORUS Reviewed date:01/02/2025 06:15:12 PM Interpretation: Performing Lab: Notes/Report: [facility] , Phosphorus 5.2 2.6-4.7 mg/dL Performing Lab: see note ML - [facility] LB PROF 14(COMP METB) Reviewed date:01/02/2025 06:15:12 PM Interpretation: Performing Lab: Notes/Report: [facility] , Sodium 135 136-145 mmol/L Potassium 4.8 3.5-5.1 mmol/L Chloride 101 98-107 mmol/L Carbon Dioxide 23.0 21.0-32.0 mmol/L Anion Gap 15.8 Glucose 42 74-106 mg/dL RESULTS CALLED TO Leidy Raya Blood Urea Nitrogen 30.0 7.0-18.0 mg/dL Creatinine 1.25 0.55-1.02 mg/dL Estimated GFR ( Catarina 53 >=60 mL/min/1.73m 2 Estimated GFR (Non- Oma 43 >=60 mL/min/1.73m 2 BUN Creatinine Ratio 24.0 Calcium 8.3 8.5-10.1 mg/dL Bilirubin Total 0.2 0.2-1.0 mg/dL Aspartate Amino Transferase 21 15-37 U/L Alanine Aminotransferase 20 14-59 U/L Alkaline Phosphatase 247 46-116 U/L Total Protein 6.1 6.4-8.2 g/dL Albumin Level 2.9 3.4-5.0 g/dL Globulin 3.2 Albumin Globulin Ratio 0.9 Performing Lab: see note ML - [facility] LB UA RANDOM Reviewed date:01/02/2025 06:15:12 PM Interpretation: Performing Lab: Notes/Report: [facility] , Color Urine LT. YELLOW YELLOW Clarity Urine CLEAR CLEAR Specific [place] Urine <=1.005 1.005-1.025 pH Urine 7.0 5.0-9.0 Protein Urine NEGATIVE NEG/TRACE mg/dL Glucose Urine UA NEGATIVE NEGATIVE mg/dL Bilirubin Urine NEGATIVE NEGATIVE Ketones Urine NEGATIVE NEGATIVE mg/dL Blood Urine TRACE-I NEGATIVE Nitrite Urine NEGATIVE NEGATIVE Urobilinogen Urine 0.2 0.2-1.0 EU/dL Leukocyte Esterase Urine TRACE NEGATIVE Performing Lab: see note ML - [facility] LB URIC ACID SERUM Reviewed date:01/02/2025 06:15:12 PM Interpretation: Performing Lab: Notes/Report: [facility] , Uric Acid 5.8 2.6-6.0 mg/dL Performing Lab: see note ML - [facility] LB URINE T PROTEIN CREAT RATIO Reviewed date:01/02/2025 06:15:12 PM Interpretation: Performing Lab: Notes/Report: [facility] , Total Protein Urine Random 11.2 <=11.9 mg/dL Protein Creatinine Ratio Urine 0.32 Performing Lab: see note [facility] LB PROF 14(COMP METB) Reviewed date:01/07/2025 04:38:56 PM Interpretation: Performing Lab: Notes/Report: [facility] , Sodium 132 136-145 mmol/L Potassium 4.7 3.5-5.1 mmol/L Chloride 100 98-107 mmol/L Carbon Dioxide 25.9 21.0-32.0 mmol/L Anion Gap 10.8 Glucose 65 74-106 mg/dL Blood Urea Nitrogen 34.0 7.0-18.0 mg/dL Creatinine 1.54 0.55-1.02 mg/dL Estimated GFR ( Catarina 41 >=60 mL/min/1.73m 2 Estimated GFR (Non- Oma 34 >=60 mL/min/1.73m 2 BUN Creatinine Ratio 22.1 Calcium 8.4 8.5-10.1 mg/dL Bilirubin Total 0.2 0.2-1.0 mg/dL Aspartate Amino Transferase 21 15-37 U/L Alanine Aminotransferase 26 14-59 U/L Alkaline Phosphatase 230 46-116 U/L Total Protein 6.2 6.4-8.2 g/dL Albumin Level 2.5 3.4-5.0 g/dL Globulin 3.7 Albumin Globulin Ratio 0.7 Performing Lab: see note ML - [facility] LB Osmolality Reviewed date:01/11/2025 02:47:53 PM Interpretation: Performing Lab: Notes/Report: [facility] , Osmolality 277 280-301 mOsmol/kg Performed at: - [facility] [address] [id number] Psychotherapist: Nicolas Arenas MD, Phone: [phone] Performing Lab: see note - [facility] LB CBC AUTO DIFF Reviewed date:01/21/2025 02:22:57 PM Interpretation: Performing Lab: Notes/Report: [facility] , White Blood Count 4.3 4.0-11.0 10 3/uL Red Blood Count 3.33 4.20-5.40 10 6/uL Hemoglobin 9.9 12.0-16.0 g/dL Hematocrit 32.9 36.0-48.0 % Mean Corpuscular Volume 98.8 81.0-99.0 fL Mean Corpuscular Hemoglobin 29.7 26.7-34.0 pg Mean Corpuscular HGB Conc 30.1 29.9-35.2 g/dL Red Cell Distribution Width 13.7 11.0-15.0 % Platelet Count 212 150-450 10 3/uL Mean Platelet Volume 8.9 9.5-13.5 fL Neutrophils Percent Auto 58.9 43.0-75.0 % Lymphocytes Percent Auto 29.3 20.5-60.0 % Monocytes Percent Auto 7.9 1.7-12.0 % Eosinophils Percent Auto 3.5 0.9-7.0 % Basophils Percent Auto 0.2 0.2-2.0 % Immature Granulocytes Pct Auto 0.2 0.0-0.5 % Neutrophils Absolute Auto 2.6 1.4-6.5 10 3/uL Lymphocytes Absolute Auto 1.3 1.2-3.8 10 3/uL Monocytes Absolute Auto 0.3 0.3-0.8 10 3/uL Eosinophils Absolute Auto 0.2 0.0-0.7 10 3/uL Basophils Absolute Auto 0.0 0.0-0.1 10 3/uL Immature Granulocytes Abs Auto 0.01 0.00-0.03 10 3/uL Performing Lab: see note ML - [facility] LB CBC AUTO DIFF Reviewed date:05/12/2024 01:25:34 PM Interpretation: Performing Lab: Notes/Report: [facility] , White Blood Count 7.5 4.0-11.0 10 3/uL Red Blood Count 3.16 4.20-5.40 10 6/uL Hemoglobin 8.7 12.0-16.0 g/dL Hematocrit 28.6 36.0-48.0 % Mean Corpuscular Volume 90.5 81.0-99.0 fL Mean Corpuscular Hemoglobin 27.5 26.7-34.0 pg Mean Corpuscular HGB Conc 30.4 29.9-35.2 g/dL Red Cell Distribution Width 14.5 11.0-15.0 % Platelet Count 296 150-450 10 3/uL Mean Platelet Volume 8.9 9.5-13.5 fL Neutrophils Percent Auto 76.6 43.0-75.0 % Lymphocytes Percent Auto 10.9 20.5-60.0 % Monocytes Percent Auto 7.6 1.7-12.0 % Eosinophils Percent Auto 4.0 0.9-7.0 % Basophils Percent Auto 0.4 0.2-2.0 % Immature Granulocytes Pct Auto 0.5 0.0-0.5 % Neutrophils Absolute Auto 5.7 1.4-6.5 10 3/uL Lymphocytes Absolute Auto 0.8 1.2-3.8 10 3/uL Monocytes Absolute Auto 0.6 0.3-0.8 10 3/uL Eosinophils Absolute Auto 0.3 0.0-0.7 10 3/uL Basophils Absolute Auto 0.0 0.0-0.1 10 3/uL Immature Granulocytes Abs Auto 0.04 0.00-0.03 10 3/uL Performing Lab: see note - [facility] LB Osmolality Reviewed date:07/03/2024 06:52:37 PM Interpretation: Performing Lab: Notes/Report: [facility] , Osmolality 285 mOsmol/kg Reference Interval: 280-301 mOsmol/kg Performing Labs 01: BN - [facility] [place], [address] [place] [id number] Dir: Nicolas Arenas MD For inquiries, the physician may contact Branch: [phone] Lab: [phone] Performing Lab: see note - [facility] LB CBC AUTO DIFF Reviewed date:05/14/2024 08:03:43 PM Interpretation: Performing Lab: Notes/Report: [facility] , White Blood Count 6.5 4.0-11.0 10 3/uL Red Blood Count 3.33 4.20-5.40 10 6/uL Hemoglobin 9.6 12.0-16.0 g/dL Hematocrit 30.9 36.0-48.0 % Mean Corpuscular Volume 92.8 81.0-99.0 fL Mean Corpuscular Hemoglobin 28.8 26.7-34.0 pg Mean Corpuscular HGB Conc 31.1 29.9-35.2 g/dL Red Cell Distribution Width 15.6 11.0-15.0 % Platelet Count 338 150-450 10 3/uL Mean Platelet Volume 9.1 9.5-13.5 fL Neutrophils Percent Auto 73.8 43.0-75.0 % Lymphocytes Percent Auto 13.1 20.5-60.0 % Monocytes Percent Auto 8.8 1.7-12.0 % Eosinophils Percent Auto 3.7 0.9-7.0 % Basophils Percent Auto 0.3 0.2-2.0 % Immature Granulocytes Pct Auto 0.3 0.0-0.5 % Neutrophils Absolute Auto 4.8 1.4-6.5 10 3/uL Lymphocytes Absolute Auto 0.9 1.2-3.8 10 3/uL Monocytes Absolute Auto 0.6 0.3-0.8 10 3/uL Eosinophils Absolute Auto 0.2 0.0-0.7 10 3/uL Basophils Absolute Auto 0.0 0.0-0.1 10 3/uL Immature Granulocytes Abs Auto 0.02 0.00-0.03 10 3/uL Performing Lab: see note ML - [facility] LB Osmolality Reviewed date:05/20/2024 02:02:21 PM Interpretation: Performing Lab: Notes/Report: [facility] , Osmolality 286 280-301 mOsmol/kg Performed at: BN - [facility] [address] [id number] Psychotherapist: Nicolas Arenas MD, Phone: [phone] Performing Lab: see note LC - [facility] LB Reason For Referral Diagnosis 1 Sebaceous cyst (L72. 3) Referral Organization [facility] Referring Provider First Name Vinay Referring Provider Last Name Herbert [facility] Referred Provider Gerald Yanes Referred Provider Specialty General Surg nona Referral Priority Routine Diagnosis 1 Supraspinatus tendon tear (S46.819A) Referral Organization [facility] Referring Provider First Name Vinay Referring Provider Last Name [facility]erred Provider Ang Swan Referred Provider Specialty Orthopedic S urgery Referral Priority Routine Medications Medication SIG (Take, Route, Frequency, Duration) Notes Start Date End Date Status Ondansetron 4 MG DISSOLVE ONE TABLET BY MOUTH EVERY 6 HOURS NEEDED for 10 Active LymphaPress use daily for Lymphe denise for 90 days 10/17/2023 Active Aspirin 81 MG 1 tablet Orally Once a day Active One Touch Ultra Test Strips Active Amitriptyline HCl 150 MG TAKE 2 TABLETS BY MOUTH DAILY for 90 Active One Touch Delica Lancets Active Liothyronine Sodium 25 MCG 1 tablet on a n empty stomach Orally Once a day for 90 days 10/11/2023 Active Linzess 290 MCG TAKE 1 CAPSULE BY [facility] DAILY for 90 Active Butorphanol Tartrate 10 MG/ML 1 spray in one nostril Nasally once daily as needed Active Pramipexole Dihydrochloride 1 MG TAKE 1 TABLET BY MOUTH DAILY for 60 Active Breo Ellipta 100-25 MCG/ACT INHALE ONE P UFF BY MOUTH DAILY for 30 Active Pantoprazole Sodium 40 MG 1 tablet Orall y Once a day Active Azelastine HCl 0.05 % 1 drop into affect ed eye Ophthalmic Twice a day 08/28/2023 Active Cypyrizozr-SRQK-Itysgngj 50-325-40 MG 1 tablet as needed Orally every 4 hrs Active Primidone 50 MG TAKE THREE TABLETS B Y MOUTH EVERY EVENING for 30 Active Bumetanide 2 MG TAKE 2 TABLET BY HARRY 2 TIMES A DAY FOR SWELLING for 30 days Active Entresto 49-51 MG TAKE 1 TABLET BY HARRY 2 TIMES A DAY for 30 days Active fentaNYL 100 MCG/HR 1 patch to skin Transdermal every 72 hours 01/24/2025 Active ALPRAZolam 0.5 MG TAKE 1 TABLET BY HARRY TH TWICE A DAY NEEDED for 30 01/24/2025 Active Diclofenac Sodium 1 % Apply 0.5 gram Externally twice daily Active Desvenlafaxine Succinate ER 50 MG 1 tablet Orally Once a day for 90 days Active Eliquis 5 MG 1 tablet Orally Twic e a day for 30 07/20/2023 Active Doxepin HCl 10 MG 1-2 capsule at bedti me Orally Once a day for 30 09/20/2023 Active Cyanocobalamin 1000 MCG/ML 1 mL Injectio n IM every month for 90 days 11/27/2023 Active Vitamin D (Ergocalciferol) 38123 UNIT 1 capsule Orally once a week Active Levothyroxine Sodium 100 MCG 1 tablet in the morning on an empty stomach Orally Once a day for 90 days Active Ciprofloxacin HCl 500 MG 1 tablet Orally every 12 hrs for 10 days 11/20/2024 Active tiZANidine HCl 4 MG TAKE 1 TABLET BY HARRY TWO TIMES A DAY AND 2 TABLETS AT BEDTIME (MAX DAILY AMOUNT 4 TABLETS) for Active oxyCODONE-Acetaminophen 5-325 MG 2 tablet Orally every 6 hrs as needed 12/31/2024 Active Doxycycline Monohydrate 100 MG 1 capsule Orally bid for 10 days 11/20/2024 Active Entresto 97-103 MG 1 tablet Orally Twic e a day Active hydrOXYzine HCl 25 MG 1 tablet as needed Orally qid for 10 days 04/05/2024 Active Diflucan 100 MG 1 tablet Orally montrell y for 10 days 11/20/2024 Active Immunizations Vaccine Route Administration Date Status Comme nts Flu, Flublok (24077) 18yr+, single-dose (9679-3420) Unknown 03/11/2023 Administered Pneumococcal (Pneumovax 23) Unknown 04/12/2016 Administ ered Pneumococcal (Prevnar 20) Unknown 08/19/2022 Administer ed SARS-COV-2 (COVID 19 Moderna - 100mcg/0.5mL) Unknown 08/27/2020 Administered SARS-COV-2 (COVID 19 Moderna - 100mcg/0.5mL) Unknown 09/24/2020 Administered SARS-COV-2 (COVID 19) bivale nt 30 mcg/0.3 ml dose Unknown 04/07/2022 Administered Shingrix (Zoster) Unknown 04/07/2022 Administered Shingrix (Zoster) Unknown 08/19/2022 Administered Social History Tobacco Use: Social History Observation Description Date Details (start date - stop date) Never Smoker NA - NA Tobacco Use/Smoking Question Answer Notes Patient is a nonsmoker Alcohol Screen (Audit-C) Question Answer Notes Did you have a drink containing alcohol in the p ast year? No Points 0 Interpretation Negative AUDIT-C (Standard) Question Answer Notes Did you have a drink containing alcohol in the p ast year? No Points 0 Interpretation Negative Problems Problem Type SNOMED Code ICD Code Onset Dates Problem Status W/U Status Risk Notes Problem 241404469 Chronic kidney disease, unspecified (N18.9) Active confirmed Problem 96531590 Other bacterial infections of unspecified site (A49.8) Active confirmed Problem 975761795 Anemia in chroni c kidney disease (D63.1) Active confirmed Problem Dehydration (30071494) Dehydration (E86.0) Active confirmed Problem Moderate recurrent major depression (49632828) Major depressive disorder, recurrent, moderate (F33.1) Active confirmed Problem Essential tremor (305912402) Essential tremor (G25.0) Active confirmed Problem 582573891821253 Migraine, unspecified, not intractable, without status migrainosus (G43.909) Active confirmed Problem Flaccid hemiplegia o f dominant side (094106407) Flaccid hemiplegia affecting right dominant side (G81.01) Active confirmed Problem Rheumatic tricuspid insufficiency (38330332) Rheumatic tricuspid insufficiency (I07.1) Active confirmed Problem 20420502 Venous insuffici ency (chronic) (peripheral) (I87.2) Active confirmed Problem 816914454 Lymphedema, not elsewhere classified (I89.0) Active confirmed Problem Sunburn of second degree (844905032) Sunburn of second degree (L55.1) Active confirmed Problem Sebaceous cyst (534032214) Sebaceous cyst (L72.3) Active confirmed Problem Shortness of breath (521032427) Shortness of breath (R06.02) Active confirmed Problem Sprain of shoulder joint (0405327) Other sprain of right shoulder joint, initial encounter (S43.939Q) Active confirmed Problem History of fall (441816086) History of falling (Z91.81) Active confirmed Problem Morbid obesity (695694290) Morbid obesity (E66.01) Active confirmed Problem COPD - Chronic obstructive pulmonary disease (02360988) COPD (chronic obstructive pulmonary disease) (J44.9) Active confirmed Problem Gastroesophageal reflux disease (562225038) GERD (gastroesophageal reflux disease) (K21.9) Active confirmed Problem Anxiety (67671696) Anxiety (F41.9) Active confi rmed Problem Neck pain (47244269) Neck pain (M54.2) Active c onfirmed Problem Edema (97659676) Edema (R60.9) Active confirmed Problem Lymphedema (08835384) Lymphedema (I89.0) Active confirmed Problem Chronic kidney disease (005453502) CKD (chronic kidney disease) (N18.9) Active confirmed Problem Essential hypertension (28290586) Benign essential HTN (I10) Active confirmed Problem Mitral valve disorde r (17107292) Mild mitral regurgitation (I34.0) Active confirmed Problem Insomnia (985030783) Insomnia (G47.00) Active c onfirmed Problem Chronic kidney disease stage 2 (543539283) Chronic kidney disease (CKD) stage G2/A1, mildly decreased glomerular filtration rate (GFR) between 60-89 mL/min/1.73 square meter and albuminuria creatinine ratio less than 30 mg/g (N18.2) Active confirmed Problem Knee pain (3771501060) Knee pain (M25.569) Active confirmed Problem Hip pain (30317255) Hip pain (M25.559) Active c onfirmed Problem Hyponatremia (22629672) Hyponatremia (E87.1) Active confirmed Problem Spinal stenosis in cervical region (55897807) Spinal stenosis in cervical region (M48.02) Active confirmed Problem Altered thought processes (53762422) Cognitive changes (R41.89) Active confirmed Problem Osteoarthritis of knee (449111261) Knee osteoarthritis (M17.9) Active confirmed Problem Migraine (56374892) Migraine (G43.909) Active c onfirmed Problem Degeneration of cervical intervertebral disc (21887380) Degenerative disc disease, cervical (M50.30) Active confirmed Problem Tricuspid valve disorder (55342665) Mild tricuspid regurgitation (I07.1) Active confirmed Problem Acute sinusitis (65311039) Acute sinusitis (J01.90) Active confirmed Problem Mild cognitive impairment (589083356) Mild cognitive impairment (G31.84) Active confirmed Problem Osteoporosis (07705500) Osteoporosis (M81.0) Active confirmed Problem Acquired hypothyroidism (699395818) Acquired hypothyroidism (E03.9) Active confirmed Problem Pain of left knee region (finding) (841555686237902) Knee pain, left (M25.562) Active confirmed Problem Hypoglycemia (989033037) Hypoglycemia (E16.2) Active confirmed Problem Acquired spondylolisthesis (045164635) Lumbar spondylolysis (M43.06) Active confirmed Problem Chronic pain (23248032) Chronic pain (G89.29) Active confirmed Problem Iron deficiency anemia (75709378) Iron deficiency anemia (D50.9) Active confirmed Problem Pain in limb (58042639) Hand pain, left (M79.642) Active confirmed Problem Peripheral venous insufficiency (82128016) Peripheral venous insufficiency (I87.2) Active confirmed Problem Aortic cusp regurgitation (741901180) Aortic cusp regurgitation (I35.1) Active confirmed Problem Overweight (704940091) Over weight (E66.3) Active confirmed Problem Tear of right rotato r cuff (22343852643283975) Right rotator cuff tear (M75.101) Active confirmed Problem Iron deficiency anemia (21261510) Anemia, iron deficiency (D50.9) Active confirmed Problem Anemia of chronic disease (972933299) Anemia of chronic disease (D63.8) Active confirmed Problem Otitis media (00370919) Acute otitis media, right (H66.91) Active confirmed Problem Fluid overload (85063020) Fluid overload (E87.70) Active confirmed Problem Endogenous obesity (202022862) Endogenous obesity (E66.8) Active confirmed Problem Chronic renal failur e syndrome (93684342) Chronic kidney insufficiency (N18.9) Active confirmed Problem Dyspnea (822465105) Acute dyspne a (R06.00) Active confirmed Problem Double vision (57721494) Double vision (H53.2) Active confirmed Problem Acute diarrhea (052828483) Acute diarrhea (R19.7) Active confirmed Problem Idiopathic gout (18522761) Acute gouty arthritis (M10.00) Active confirmed Problem Iron deficiency anemia (87346490) Iron (Fe) deficiency anemia (D50.9) Active confirmed Problem Impingement syndrome of shoulder (705491028) Impingement syndrome of shoulder (M75.40) Active confirmed Problem C2 cervical frac ture (S12.100A) Active confirmed Problem Hyperparathyroidism due to renal insufficiency (07086441) Hyperparathyroidism due to renal insufficiency (N25.81) Active confirmed Problem Edema (936233155) Bilateral leg edema (R60.0) Active confirmed Problem Arthritis of lumbosacral spine (disorder) (349574584) Lumbar and sacral osteoarthritis (M47.817) Active confirmed Problem Abnormal renal function (33107153) Abnormal renal function (N28.9) Active confirmed Problem Chronic heart failur e (14577854) Chronic heart failure (I50.9) Active confirmed Problem Acute arthritis (33470619) Acute arthritis (M19.90) Active confirmed Problem 276324353 Port-a-cath in [place] (Z95.828) Active confirmed Problem Acute congestive heart failure (84448664) Acute CHF (I50.9) Active confirmed Problem Lumbosacral radiculopathy (2353387) Left lumbosacral radiculopathy (M54.17) Active confirmed Problem Gastroesophageal reflux disease (disorder) (747285483) Chronic GERD (K21.9) Active confirmed Problem Cardiomegaly (3346113) Atrial enlargement, left (I51.7) Active confirmed Problem Pulmonary valve insufficiency (92324873) Pulmonary valve insufficiency (I37.1) Active confirmed Problem Transient ischemic attack (disorder) (127823597) Brain TIA (G45.9) Active confirmed Problem Vitamin D deficiency (52161870) Unspecified vitamin D deficiency (E55.9) Active confirmed Problem Essential hypertension (73424985) BP (high blood pressure) (I10) Active confirmed Problem Bad memory (442988385) Bad memory (R41.3) Active confirmed Problem Abnormal swallowing (31160269) Abnormal swallowing (R13.10) Active confirmed Problem Chronic kidney disease stage 2 (177629689) Chronic kidney disease (CKD), stage 2 (mild) (N18.2) Active confirmed Problem Simple goiter (187212858) 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 difficile colitis (A04.72) Active confirmed Problem Clostridium difficil e colitis (998764484) Clostridium difficile colitis (A04.72) Active confirmed Problem Pulmonary hypertension (disorder) (21460495) Chronic pulmonary hypertension (I27.20) Active confirmed Problem Cervical arthritis (625176478) Cervical arthritis (M47.812) Active confirmed Problem Acute repetitive seizure (862732432144735) Acute repetitive seizure (G40.909) Active confirmed Problem Chronic kidney disease stage 3 (disorder) (959698307) Chronic kidney disease, stage 3 unspecified (N18.30) Active confirmed Problem Acute worsening of stage 3 chronic kidney disease (N18.30) Active confirmed Problem Headache above t he eye region (R51.9) Active confirmed Problem Disease caused by Severe acute respiratory syndrome coronavirus 2 (disorder) (979001902) COVID (U07.1) Active confirmed Vital Signs Blood pressure diastolic 82 mm Hg 11/20/2024 Height 62 in 11/20/2024 Blood pressure systolic 142 mm Hg 11/20/2024 Weight 216 lbs 11/20/2024 BMI 39.5 kg/m2 11/20/2024 Encounters Encounter Location Date Provider Diagnosis [facility] [address] [place] [address] 07/31/2024 Vinay Hoy Hand pain, left M79.642 [facility] [address] [place] [address] 11/20/2024 Vinay Hoy Cellulitis L03.90 an d Acute repetitive seizure G40.909 [facility] [address] [place] [address] 11/12/2024 Ny Rae [facility] [address] [place] [facility] [place] [address] 11/26[facility] [address] [place] [place] [address] 12/10/2024 [facility] [address] [place] [place] [address] 12/24/2024 [facility] [address] [place] [address] 05/14/2024 [facility] [address] [place] [place] [address] 07/16/2024 [facility] [address] [place] [place] [address] 10/15/2024 [facility] [address] [place] [place] [address] 10/29/2024 Nykhushboo Rae [facility] [address] [facility] [place] [address] 11/22/2024 Vinay Hoy Cellulitis L03.90 [facility] [address] [place] [place] [address] 10/15/2024 [facility] [address] [place] [place] [address] 12/24/2024 [facility] [address] [place] [place] [address] 04/16/2024 [facility] [address] [place] [place] [address] 07/02/2024 Ny Butch [facility] [address] [facility] [place] [address] 08/06/2024 Vinay Hoy Acute CHF I50.9 ; Chronic heart failure I50.9 ; History of falling Z91.81 and Right sided abdominal pain R10.9 [facility] [address] [facility] [place] [address] 09/20/2024 Vinay Hoy Edema R60.9 ; Benign essential HTN I10 ; Hyponatremia E87.1 and CHF (congestive heart failure), NYHA class I, acute, combined I50.41 [facility] [address] [place] [address] 11/13/2024 Vinay Hoy Acute repetitive seizure G40.909 ; Major depressive disorder, recurrent, moderate F33.1 and Cellulitis L03.90 [facility] [address] [place] [address] 02/09/2024 Vinay Hoy Benign essential HTN I10 ; Bilateral leg edema R60.0 ; Lymphedema, not elsewhere classified I89.0 and Sebaceous cyst L72.3 [facility] [address] [address] [place] [address] 02/22/2024 Vinay Hoy Edema R60.9 ; Benign essential HTN I10 ; Hyponatremia E87.1 ; Lumbar spondylolysis M43.06 and Migraine G43.909 [facility] [address] [place] [address] 03/08/2024 Vinay Hoy Shoulder pain, left M25.512 [facility] [address] [place] [address] 03/29/2024 Vinay Hoy Fluid overload E87.[address] [address] 04/05/2024 Vinay Hoy Edema R60.9 ; Benign essential HTN I10 ; Acute CHF I50.9 ; Left lumbosacral radiculopathy M54.17 ; Cervical arthritis M47.812 and Hyperglycemia R73.9 [facility] [address] [place] [address] 01/21/2025 Vinay Hoy [facility] [address] [place] [address] 01/24/2025 Vinay Hoy Cellulitis L03.90 [facility] [address] [place] [address] 12/03/2024 Vinay Hoy Right sided abdomina l pain R10.9 [facility] [address] [place] [address] 12/20/2024 Vinay Hoy Cellulitis L03.90 [facility] [address] [place] [address] 12/31/2024 Vinay Hoy Right sided abdomina l pain R10.9 [facility] [address] [place] [address] 01/02/2025 Vinay Hoy [facility] [address] [place] [address] 01/02/2025 Vinay Hoy [facility] [address] [place] [address] 01/20/2025 Vinay Hoy Low back pain at multiple sites M54.50 [facility] [address] [place] [address] 09/27/2024 Vinay Hoy [facility] [address] [place] [address] 10/03/2024 Vinay Hoy Right sided abdomina l pain R10.9 [facility] [address] [place] [address] 10/22/2024 Vinay Hoy Edema R60.9 [facility] [address] [place] [address] 11/04/2024 Vinay Hoy Right sided abdomina l pain R10.9 [facility] [address] [place] [address] 11/22/2024 Vinay Hoy [facility] [address] [place] [address] 11/26/2024 Vinay Hoy [facility] [address] [place] [address] 08/21/2024 Vinay Hoy C2 cervical fracture S12.100A and Lumbar radiculopathy M54.16 [facility] [address] [place] [address] 09/04/2024 Vinay Hoy Right sided abdomina l pain R10.9 [facility] [address] [facility] [place] [address] 09/05/2024 Vinay Hoy [facility] [address] [facility] [place] [address] 09/05/2024 Vinay Hoy [facility] [address] [facility] [place] [address] 09/11/2024 Vinay Hoy Right sided abdomina l pain R10.9 ; Hand pain, left M79.642 ; Hyperglycemia R73.9 ; Edema R60.9 and Elevated creatine kinase R74.8 [facility] [address] [facility] [place] [address] 09/18/2024 Vinay Hoy [facility] [address] [facility] [place] [place] [address] 07/05/2024 Vinay Hoy Sebaceous cyst L72.3 [facility] [address] [facility] [place] [place] [address] 07/18/2024 Vinay Hoy Anxiety F41.9 [facility] [address] [facility] [place] [address] 07/22/2024 Vinay Hoy Sebaceous cyst L72.3 and Lumbar radiculopathy M54.16 [facility] [address] [facility] [place] [address] 07/22/2024 Vinay Hoy [facility] [address] [facility] [place] [address] 08/06/2024 Vinay Hoy [facility] [address] [facility] [place] [place] [address] 08/15/2024 Vinay Hoy [facility] [address] [facility] [place] [place] [address] 05/20/2024 Vinay Hoy Lumbar radiculopathy M54.16 [facility] [address] [facility] [place] [address] 05/20/2024 Vinay Hoy [facility] [address] [facility] [place] [address] 05/30/2024 Vinay Hoy [facility] [address] [place] [address] 06/06/2024 Vinay Hoy Sebaceous cyst L72.3 [facility] [address] [place] [address] 06/13/2024 Vinay Hoy [facility] [address] [place] [address] 07/02/2024 Vinay Hoy Fluid overload E87.7 0 ; Benign essential HTN I10 and Hyponatremia E87.1 [facility] [address] [place] [address] 04/05/2024 Vinay Hoy [facility] [address] [place] [address] 04/09/2024 Vinay Hoy [facility] [address] [place] [address] 04/10/2024 Vinay Hoy Sebaceous cyst L72.3 [facility] [address] [place] [address] 04/16/2024 Vinay Hoy [facility] [address] [place] [address] 04/22/2024 Sheridan Love Lumbar radiculopathy M54.16 [facility] [address] [place] [address] 05/09/2024 Vinay Hoy Sebaceous cyst L72.3 [facility] [address] [place] [address] 03/18/2024 Vinay Hoy Benign essential HTN I10 [facility] [address] [place] [address] 03/18/2024 Vinay Hoy [facility] [address] [place] [address] 03/18/2024 Ivnay Hoy Benign essential HTN I10 [facility] [address] [place] [address] 03/18/2024 Vinay Godinez [facility] [address] [facility] [place] [address] 03/27/2024 Vinay Duvaly [facility] [address] [facility] [place] [address] 04/01/2024 Vinay Hoy Supraspinatus tendon tear S46.819A [facility] [address] [place] [address] 02/14/2024 Vinay Duvaly [facility] [address] [facility] [place] [address] 02/15/2024 Vinay Hoy [facility] [address] [place] [address] 02/21/2024 Vinay Hoy Benign essential HTN I10 [facility] [address] [facility] [place] [address] 03/01/2024 Vinay Duvaly [facility] [address] [place] [address] 03/12/2024 Vinay Hoy Sebaceous cyst L72.3 [facility] [address] [facility] [place] [address] 03/15/2024 Vinay Hoy Shoulder pain, left M25.512 Assessments Encounter Date Diagnosis (ICD Code) Assessment Notes Treatment Notes Treatment Clinical Notes Section Notes 11/20/2024 Cellulitis (ICD-10 - L03.90) 11/20/2024 Acute repetitive seizure (ICD-10 - G40.909) 11/22/2024 Cellulitis (ICD-10 - L03.90) 07/05/2024 Sebaceous cyst (ICD-10 - L72.3) 07/18/2024 Anxiety (ICD-10 - F41.9) 07/22/2024 Sebaceous cyst (ICD-10 - L72.3) 08/21/2024 C2 cervical fracture (ICD-10 - S12.100A) 02/21/2024 Benign essential HTN (ICD-10 - I10) 03/12/2024 Sebaceous cyst (ICD-10 - L72.3) 03/15/2024 Shoulder pain, left (ICD-10 - M25.512) 03/18/2024 Benign essential HTN (ICD-10 - I10) 03/18/2024 Benign essential HTN (ICD-10 - I10) 04/01/2024 Supraspinatus tendon tear (ICD-10 - S46.819A) 04/10/2024 Sebaceous cyst (ICD-10 - L72.3) 04/22/2024 Lumbar radiculopathy (ICD-10 - M54.16) 05/09/2024 Sebaceous cyst (ICD-10 - L72.3) 05/20/2024 Lumbar radiculopathy (ICD-10 - M54.16) 06/06/2024 Sebaceous cyst (ICD-10 - L72.3) 07/02/2024 Fluid overload (ICD-10 - E87.70) 07/02/2024 Benign essential HTN (ICD-10 - I10) 10/03/2024 Right sided abdominal pain (ICD-10 - R10.9) 10/22/2024 Edema (ICD-10 - R60.9) 11/04/2024 Right sided abdominal pain (ICD-10 - R10.9) 12/03/2024 Right sided abdominal pain (ICD-10 - R10.9) 12/20/2024 Cellulitis (ICD-10 - L03.90) 12/31/2024 Right sided abdominal pain (ICD-10 - R10.9) 01/20/2025 Low back pain at multiple sites (ICD-10 - M54.50) 01/24/2025 Cellulitis (ICD-10 - L03.90) 09/04/2024 Right sided abdominal pain (ICD-10 - R10.9) 09/11/2024 Right sided abdominal pain (ICD-10 - R10.9) 02/09/2024 Benign essential HTN (ICD-10 - I10) 02/09/2024 Bilateral leg edema (ICD-10 - R60.0) 03/08/2024 Shoulder pain, left (ICD-10 - M25.512) 03/29/2024 Fluid overload (ICD-10 - E87.70) 04/05/2024 Edema (ICD-10 - R60.9) 04/05/2024 Benign essential HTN (ICD-10 - I10) keep bumex - latoya add back spironolactone 50 mg a day 02/22/2024 Edema (ICD-10 - R60.9) inc meds to TID 02/22/2024 Benign essential HTN (ICD-10 - I10) low here - monitor at home 07/31/2024 Hand pain, left (ICD-10 - M79.642) 08/06/2024 Acute CHF (ICD-10 - I50.9) 08/06/2024 Chronic heart failure (ICD-10 - I50.9) 09/20/2024 Edema (ICD-10 - R60.9) 09/20/2024 Benign essential HTN (ICD-10 - I10) 11/13/2024 Acute repetitive seizure (ICD-10 - G40.909) 11/13/2024 Major depressive disorder, recurrent, moderate (ICD-10 - F33.1) 11/13/2024 Cellulitis (ICD-10 - L03.90) 09/20/2024 Hyponatremia (ICD-10 - E87.1) 08/06/2024 History of falling (ICD-10 - Z91.81) 02/22/2024 Hyponatremia (ICD-10 - E87.1) likely low again 04/05/2024 Acute CHF (ICD-10 - I50.9) sed above 02/09/2024 Lymphedema, not elsewhere classified (ICD-10 - I89.0) 09/11/2024 Hand pain, left (ICD-10 - M79.642) 07/02/2024 Hyponatremia (ICD-10 - E87.1) 08/21/2024 Lumbar radiculopathy (ICD-10 - M54.16) 07/22/2024 Lumbar radiculopathy (ICD-10 - M54.16) 09/11/2024 Hyperglycemia (ICD-10 - R73.9) 02/09/2024 Sebaceous cyst (ICD-10 - L72.3) setting up darin Yanes 04/05/2024 Left lumbosacral radiculopathy (ICD-10 - M54.17) stabel 02/22/2024 Lumbar spondylolysis (ICD-10 - M43.06) 08/06/2024 Right sided abdominal pain (ICD-10 - R10.9) 09/20/2024 CHF (congestive heart failure), NYHA class I, acute, combined (ICD-10 - I50.41) 02/22/2024 Migraine (ICD-10 - G43.909) 04/05/2024 Cervical arthritis (ICD-10 - M47.812) deteriorated toda - headache 09/11/2024 Edema (ICD-10 - R60.9) 09/11/2024 Elevated creatine kinase (ICD-10 - R74.8) 04/05/2024 Hyperglycemia (ICD-10 - R73.9) Plan Of Treatment Pending Test Test Name Order Date XR Lumbar Spine (2-3 views) * 01/20/2025 CT Lumbar w/o contrast * 10/16/2023 IONIZED CALCIUM 12/06/2022 COMPREHENSIVE METABOLIC PROFILE WITH GFR 07/02/2024 BMP - Basic Metabolic Panel 09/11/2024 CBC W/AUTO DIFF 07/02/2024 XR Hand 3 Views Left 07/31/2024 MAGNESIUM 12/06/2022 PHOSPHORUS 12/06/2022 CT ABD and PELV W CON 08/06/2024 CT CSPINE WO CON 01/14/2024 US ARTERY LEG GUMARO 12/06/2022 VC VENOUS REFLUX GUMARO LMT 12/06/2022 XR HIP RT 2 3V W PELVIS 06/09/2023 XR KNEE LT 1_2 V 09/15/2023 XR RIBS RT NO CH 2V 03/22/2023 XR SHOULDER LT 2V or > 03/08/2024 XR TIB_FIB LT 2V 09/15/2023 XR thoracic spine 3V 03/22/2023 MRI Arthrogram LT Shoulder 03/15/2024 Next Appt Details Provider Name:Ny Rae , 02/18/2025 11:00:00 AM, [address] [place], [address], Provider Name:Ny Rae , 02/18/2025 11:15:00 AM, [address] [place], [address], Insurance Providers Payer Name Payer Address Payer Phone Subscriber Number Group Number Insured Name Patient Relationship to Insured Coverage Start Date Coverage End Date [facility] [employer] [employer] [address] [place] [address] [id number] [facility] 2 Jose Moser Self - patient is the insured 4 MEDICAID [place] 2ND INS [address] [facility] [place] [id number] Jose Moser Self - patient is the insured 5 Medications Administered Medication Instructions Date of Administration Dosage Notes Ceftriaxone 1 gram 11/13/2024 1 g Ceftriaxone 1 gram 11/20/2024 1 g Kenalog-40 03/08/2023 120 mg Kenalog-40 05/10/2023 60 mg Kenalog-40 06/12/2023 120 mg 120 Kenalog-40 09/20/2023 160 mg 80 mg wiht 1 c c lidocaine Ketorolac Tromethamine 10/05/2022 60 mg 60 mg Ketorolac Tromethamine 10/19/2022 60 mg Ketorolac Tromethamine 11/04/2022 60 mg 60 mg Ketorolac Tromethamine 11/24/2022 60 mg Ketorolac Tromethamine 02/03/2023 60 mg 60 Ketorolac Tromethamine 03/08/2023 60 mg Ketorolac Tromethamine 05/10/2023 60 mg Ketorolac Tromethamine 06/12/2023 30 mg 30 - yep Ketorolac Tromethamine 06/28/2023 30 mg Ketorolac Tromethamine 08/18/2023 60 mg Ketorolac Tromethamine 09/28/2023 60 mg Ketorolac Tromethamine 09/29/2023 60 mg Ketorolac Tromethamine 10/09/2023 60 mg Ketorolac Tromethamine 11/09/2023 60 mg 60 Ketorolac Tromethamine 02/22/2024 60 mg 60 Ketorolac Tromethamine 04/05/2024 60 mg 60 Ketorolac Tromethamine 11/13/2024 30 mg Ketorolac Tromethamine 11/20/2024 30 mg Ketorolac Tromethamine 11/22/2024 30 mg Lidocaine HCl 11/20/2024 2.1 mL Norflex 10/05/2022 60 mg 60 Ondansetron HCl 02/03/2023 60 mg 60 Orphenadrine Citrate 10/19/2022 60 mg Orphenadrine Citrate 11/04/2022 60 mg 60 Orphenadrine Citrate 11/24/2022 60 mg Orphenadrine Citrate 03/08/2023 60 mg Orphenadrine Citrate 06/12/2023 60 mg 60 Orphenadrine Citrate 06/28/2023 60 mg Orphenadrine Citrate 08/18/2023 60 mg Orphenadrine Citrate 09/28/2023 60 mg Orphenadrine Citrate 09/29/2023 60 mg Orphenadrine Citrate 10/09/2023 60 mg Orphenadrine Citrate 11/09/2023 60 mg 60 Orphenadrine Citrate 02/22/2024 60 mg 60 Phenergan 11/24/2022 50 mg Phenergan 09/29/2023 50 mg Phenergan 08/18/2023 25 mg Promethazine 25mg 10/05/2022 25 mg 25 mg I M Promethazine 25mg 10/19/2022 25 mg Promethazine 25mg 03/08/2023 25 mg Promethazine 25mg 05/10/2023 1 mL Promethazine 25mg 09/28/2023 50 mg Promethazine, 25 mg 11/04/2022 25 mg 25 Promethazine, 25 mg 02/03/2023 25 mg 25 Promethazine, 25 mg 11/09/2023 2 mL 50 Promethazine, 25 mg 02/22/2024 50 mg 50 Promethazine, up to 50 mg 10/09/2023 50 mg Medical (General) History Medical History History ICD Code Edema R60.9 Migraine G43.909 Acute otitis media, right H66.91 Over weight E66.3 Osteoporosis M81.0 Double vision H53.2 Right rotator cuff tear M75.101 Clostridium difficile colitis A04.72 Other sprain of right shoulder joint, in itial encounter S43.491A Closed displaced fracture of greater trochanter of left femur, initial encounter S72.112A COVID U07.1 Acute sinusitis J01.90 Mild cognitive impairment G31.84 Bad memory R41.3 Acute diarrhea R19.7 Cognitive changes R41.89 Hypoglycemia E16.2 Sunburn of second degree L55.1 Spinal stenosis in cervical region M48.0 2 Cervical arthritis M47.812 C. 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 Chronic pulmonary hypertension I27.20 Pulmonary valve insufficiency I37.1 Aortic cusp regurgitation I35.1 Mild tricuspid regurgitation I07.1 Atrial enlargement, left I51.7 Benign essential HTN I10 Abnormal swallowing R13.10 Dehydration E86.0 Hyponatremia E87.1 Hyperparathyroidism due to renal insuffi ciency N25.81 Unspecified vitamin D deficiency E55.9 Abnormal renal function N28.9 Acute CHF I50.9 Chronic kidney disease, stage 3 unspecif ied N18.30 Bilateral leg edema R60.0 Acute dyspnea R06.00 Acute dyspnea R06.00 Essential tremor G25.0 Acute dyspnea R06.00 Nontoxic (diffuse) goiter E04.0 Flaccid hemiplegia affecting right domin ant side G81.01 Lumbar and sacral osteoarthritis M47.817 Spinal stenosis at L4-L5 level M48.061 Left lumbosacral radiculopathy M54.17 Acute gouty arthritis M10.00 Brain TIA G45.9 Impingement syndrome of shoulder M75.40 Iron (Fe) deficiency anemia D50.9 Chronic GERD K21.9 Hip pain M25.559 Migraine G43.909 Acute arthritis M19.90 Insomnia G47.00 Hypoglycemia E16.2 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
--- NOTE | 2025-01-27 13:59 | XR_ITS ---
The [address] [address] Patient Name: JOSE CLEMENTS MRN: [id number] date: 1960 Sex: F Assigned Patient Location: [facility] Current Patient Location: [facility] Accession/Order Number: [id number] Exam Date: 01/27/2025 14:32 Report Date: 01/27/2025 14:35 At the request of: ANGLE SANTANA MD Procedure: XR lumbar spine 2-3V LUMBAR SPINE - 3 views CLINICAL HISTORY: Low back pain worsening over the past 6 months. COMPARISON: Lumbar spine 11/11/2023 FINDINGS: Lumbar spine posterior fixation L3-L5 without hardware complication. An IVC filter is seen projecting over the right sacrum. Vertebral body heights appear maintained. Disc heights appear unchanged from the prior study. SI joints demonstrate degenerative change. XR/XR lumbar spine 2-3V IMPRESSION: POSTERIOR FIXATION L3-L5 WITHOUT HARDWARE COMPLICATION. NO SIGNIFICANT CHANGE IN LUMBAR SPINE FINDINGS COMPARED TO THE 2023 STUDY. Impression dictated by: Chris Puri Jr., D.O. 01/27/2025 2:35 PM Dictation Location: [place] [address] Electronically authenticated by: [id number] Y Date: 01/27/2025 14:35
== END 2025-01-27 13:54 | disposition home or self-care (01) ==
LOC: RAD 13:53
PROVIDERS: PCP Family Medicine; Visit Provider Family Medicine
DX: M54.50 Low back pain, unspecified (principal); M43.26 Fusion of spine, lumbar region
CPT/HCPCS: 72100

== ENCOUNTER 2025-02-04 07:16 | Outpatient (RCR) | payer MEDICARE, MEDICAID, SELFPAY ==
[2025-02-04 11:10] VITALS: BP 160/71; PULSE 72; TEMP 36.8; O2SAT 98
[2025-02-04 11:44] LABS: Hematocrit 34.4 % (36.0-48.0); Hemoglobin 10.6 g/dL (12.0-16.0); Immature Granulocytes Abs Auto 0.01 10^3/uL (0.00-0.03); Immature Granulocytes Pct Auto 0.2 % (0.0-0.5); Lymphocytes Absolute Auto 1.3 10^3/uL (1.2-3.8); Mean Corpuscular HGB Conc 30.8 g/dL (29.9-35.2); Mean Corpuscular Hemoglobin 29.7 pg (26.7-34.0); Mean Corpuscular Volume 96.4 fL (81.0-99.0); Platelet Count 226 10^3/uL (150-450); Red Blood Count 3.57 10^6/uL (4.20-5.40); White Blood Count 5.1 10^3/uL (4.0-11.0)
--- NOTE | 2025-02-04 11:53 | PC.NURSE ---
patient is 10.6 on her HGB which means no injection needed
[2025-02-04 12:00] LABS: Alanine Aminotransferase 35 U/L (14-59); Albumin Globulin Ratio 0.9; Albumin Level 3.1 g/dL (3.4-5.0); Alkaline Phosphatase 230 U/L (46-116); Anion Gap 10.1; Aspartate Amino Transferase 30 U/L (15-37); Blood Urea Nitrogen 23.0 mg/dL (7.0-18.0); Calcium 8.4 mg/dL (8.5-10.1); Carbon Dioxide 21.3 mmol/L (21.0-32.0); Chloride 106 mmol/L (98-107); Estimated GFR (African America 46 (>=60 mL/min/1.73m^2); Estimated GFR (Non-African Ame 38 (>=60 mL/min/1.73m^2); Globulin 3.4 g/dL; Glucose 69 mg/dL (74-106); Potassium 4.4 mmol/L (3.5-5.1); Sodium 133 mmol/L (136-145); Total Protein 6.5 g/dL (6.4-8.2)
== END 2025-02-23 23:59 | disposition home or self-care (01) ==
LOC: INF 07:16
PROVIDERS: PCP Family Medicine; Visit Provider Family Medicine
DX: E87.70 Fluid overload, unspecified (principal); I10 Essential (primary) hypertension; E87.1 Hypo-osmolality and hyponatremia
CPT/HCPCS: 36415; 36591; 80053; 83930; 85025

== ENCOUNTER 2025-02-10 10:56 | Day surgery (SDC) | payer MEDICARE, MEDICAID, SELFPAY ==
--- OUTSIDE RECORDS SUMMARY | 2025-01-27 14:31 | XMS_ITS ---
Author Organization [facility] [place] Address [address] [place] [address] Care Team Providers Care Pre Fabricator Name Role Phone Vinay Godinez Primary Care Provider REASON FOR VISIT review MRI Encounters Encounter Location Date Provider Diagnosis [facility] [address] [facility] [place] [address] 01/27/2025 Vinay Godinez Plan Of Treatment Next Appt Details Provider Name:Ny Rae , 02/18/2025 11:00:00 AM, [address] [place], [address], Provider Name:Ny Rae , 02/18/2025 11:15:00 AM, [address] [place], [address], Progress Notes * Mabel CLEMENTS ADOB:1959 (64 yo F)Acc No.[id number]:01/27/2025 Patient: Bob Mabel BURGOS :1960 A ge:64 Y S ex:Female Address:[address] [place] [address], [address] * true * Date: Generated for Printi ng/Faxing/eTransmitting on: 0 02/10/2025 10:59 AM EDT
--- OUTSIDE RECORDS SUMMARY | 2025-01-30 04:24 | XMS_ITS ---
Author Organization [facility] [place] Address [address] [place] [address] Care Team Providers Care Access Assoc Name Role Phone Vinay Godinez Primary Care Provider REASON FOR VISIT refill Medications Medication SIG (Take, Route, Frequency, Duration) Notes Start Date End Date Status oxyCODONE-Acetaminophen 5-325 MG 2 tablet Orally every 6 hrs as needed 01/30/2025 Active Encounters Encounter Location Date Provider Diagnosis [facility] [address] [place] [address] 01/30/2025 Vinay Godinez Right sided abdomin al pain R10.9 Assessments Encounter Date Diagnosis (ICD Code) Assessment Notes Treatment Notes Treatment Clinical Notes Section Notes 01/30/2025 Right sided abdominal pain (ICD-10 - R10.9) Plan Of Treatment Medication Medication Name Sig Start Date Stop Date Notes oxyCODONE-Acetaminophen 5-32 5 MG 2 tablet Orally every 6 hrs as needed 01/30/2025 Next Appt Details Provider Name:Ny Rae , 02/18/2025 11:00:00 AM, [address] [place], [address], Provider Name:Ny Rae , 02/18/2025 11:15:00 AM, [address] [place], [address], Progress Notes * Mabel CLEMENTS ADOB:1959 (64 yo F)Acc No.[id number]:01/30/2025 Patient: Mabel CLAYTON :1960 A ge:64 Y S ex:Female Address:[address] [place] [address], [id number] * Refills Refill oxyCODONE-Acetaminophen Tablet, 5-325 MG, Orally, 180, 2 tablet, every 6 hrs as needed, Refills=0 * true * Date: Generated for Inocente gann/Vonda/eTransmitting on: 0 02/10/2025 11:01 AM EDT
--- OUTSIDE RECORDS SUMMARY | 2025-02-04 08:30 | XMS_ITS ---
Author Organization [facility] in [place] Address [address] [place] [address] Care Team Providers Care Rawhide Trimmer Name Role Phone Vinay Godinez Primary Care Provider [phone] Ny Rae Unavailable [phone] REASON FOR VISIT CS Encounters Encounter Location Date Provider Diagnosis [facility] [address] [place] [phone] 02/04/2025 Ny Rae Plan Of Treatment Next Appt Details Provider Name:Ny Rae , 02/18/2025 11:00:00 AM, [address] [place] [address], [phone], Provider Name:Ny Rae , 02/18/2025 11:15:00 AM, [address] [place] [address], [phone], Progress Notes * Mabel CLEMENTS ADOB:1959 (64 yo F)Acc No.[id number]:02/04/2025 UNLOCKED PROGRESS NOTE Progress Note Patient: Bob Mabel BURGOS Ivy Provider: Ivy Rae M.D. :1960 A ge:64 Y S ex:Female Date:02/04/2025 Address:[address] [place] [id number] Pcp:Vinay Godinez Subjective: * Chief Complaints: * 1 . CS. * Medical History: Objective: * Vitals: Assessment: Plan: * Treatment: * * Electronic signature of Jonny Rae MD, [id number] on 02/10/2025 at 10:59 AM EDT Sign off status: Pending Visit Status: P EN (Pending) * Provider: Ivy Rae M.D. Date: 0 02/04/2025 Generated for Inocente gann/Vonda/eTransmitting on: 0 02/10/2025 10:59 AM EDT
--- OUTSIDE RECORDS SUMMARY | 2025-02-10 10:59 | XMS_ITS | Patient Health Record ---
Author Organization [facility] Address [address] [place] [address] Care Team Providers Care Hiv Nurse Name Role Phone Herbert Yuri Primary Care Provider Therese Diaz ClaLoi kam Unavailable [phone] MichelLaurie borja Unavailable [phone] Allergies Allergen (clinical drug ingredient) Drug/Non Drug [...] Problem Status W/U Status Risk Notes Problem 84141857 Cervical spinal stenosis (M48.02) Active confirmed Problem 161344389 Cervical myelopathy (G95.9) Active confirmed Problem 214031486788605 Primary osteoarthritis of left knee (M17.12) Active confirmed Problem Localized, primary osteoarthritis of the shoulder region (687532862) Primary osteoarthritis, left shoulder (M19.012) Active confirmed Problem 539668519 Unspecified nondisplaced fracture of second cervical vertebra, initial encounter for closed fracture (S12.101A) Active confirmed Problem 939696450 Unspecified nondisplaced fracture of second cervical vertebra, subsequent encounter for fracture with routine healing (S12.101D) Active confirmed Problem 181367293618794 Sciatica of left side (M54.32) Active confirmed Problem Fall, initial encounter (W19.XXXA) Active confirmed Problem 82546333 Lumbar stenosis with neurogenic claudication (M48.062) Active confirmed Problem 94225337522534428 Tear of left rotator cuff, unspecified tear extent, unspecified whether traumatic (M75.102) Active confirmed Encounters Encounter Location Date Provider Diagnosis [facility] [address] [address] [place] [address] 05/06/2024 [facility] Tear of left rotator cuff, unspecified tear [...] Spine W/O Contrast SCC- KNEE 4 VIEW LEFT-[id number] 12/18/2023 MRI : Cervical Spine W/O Contrast - 7214 1 10/27/2023 MRI : Cervical Spine W/O Contrast - 7214 1 01/12/2024 Insurance Providers Payer Name Payer Address Payer Phone Subscriber Number Group Number Insured Name Patient Relationship to Insured Coverage Start Date Coverage End Date MEDICARE UHC DUAL COMPLETE [address] [place] [address] [phone] [id number] DEONKANDICE JOSE Self - [facility] the [facility] [address] [place] [address] [id number] DEONKANDICE JOSE Self - patient is the insured Medical (General) History Medical History History ICD Code High Blood Pressure Heart Attack Heart Failure Asthma Bronchitis Thyroid disease Stomach ulcers Gastric Reflux Irritable bowel syndrome Stroke Seizures Kidney failure Osteoporosis Osteoarthritis Bleeding Disorders Anemia Blood Clots in Legs/Lungs Endometriosis Ovarian Cysts Anxiety Depression Seen a Psychiatrist Healthcare worker Drug Allergies Surgical History Surgery Date(Month/Year) Knee replacement 2018 Back surgery 2022 Rotator cuff surgery 2022 Gastric bypass surgery 2000 Hysterectomy 2005 Cholecystectomy (gallbladder removal) 19 80
--- OUTSIDE RECORDS SUMMARY | 2025-02-10 10:59 | XMS_ITS | Clinical Summary ---
Author Organization [employer] [facility] [employer] Address [id number] [address] [place] [address] Care Team Providers Care Operations Vocational Instructor Name Role Phone Yuri Godinez MD Primary Care Provider [phone] Allergies Active Allergy Reactions Criticality Noted Date [...] mouth 2 (two) times a day. Active yiuthhwb-btnm-QD-c alcium &mins (THERAGRAN-M) 9 mg iron-400 mcg tablet Take 1 tablet by mouth daily. Active rizatriptan BLOW MOLDER (MAXALT-BLOW MOLDER) 10 mg disintegrating tablet Dissolve 10 mg [...] (06/05/2019): Added automatically from request for surgery [id number] Tympanic membrane perforation, right 07/31/2018 Bilateral hearing [...] Completed 08/19/2022, Medical Devices Implanted Type Area K 12 [employer] Principal Device Identifier Shelf Expiration Date Model / Serial / Lot Soft Tissue Device [place] 5.2m M - Sna - [id number] Implanted:Qty: 1 on 08/11/2017 by Patrick Lala MD at [facility] [place] Right: Knee [employer] 06/25/2019 [id number] / NA / [id number] Cmnt Bn Plc R+Ggnta 40gm Grn Rpl [id number] - Sna - [id number] Implanted:Qty: 1 on 08/11/2017 by Patrick Lala MD at [facility] Cement Right: Knee [employer] 09/23/2020 55-6030-778-0 1 / NA / [id number] Cmnt Bn Plc R+Ggnta 40gm Grn Rpl [id number] - Sna - [id number] Implanted:Qty: 1 on 08/11/2017 by Patrick Lala MD at [facility] Cement Right: Knee [employer] 11/23/2020 00-0511-905-0 1 / NA / [id number] Cmnt Bn Plc R+Ggnta 40gm Grn Rpl [id number] - Sna - [id number] Implanted:Qty: 1 on 08/11/2017 by Patrick Lala MD at [facility] Cement Right: Knee [employer] [id number] 09/23/2020 41-8887-348-0 1 / NA / [id number] Tiss Aldrm Gft 2x4cm 6-12 Ea=1 Sheet=8 Cm2 - [id number] - [id number] Implanted:Qty: 8 on 08/01/2019 by Anuj Mcallister MD PhD at [facility] Graft Right: Ear [employer] 10/23/2020 [id number] / [id number] / [id number] Description:AlloDerm Regener ative Tissue Matrix Cmpt Ptlr 32mm Nxgn Alply Rpl [id number] - Sna - [id number] Implanted:Qty: 1 on 08/11/2017 by Patrick Lala MD at [facility] Orthopedic Implant Right: Knee [employer] 03/25/2025 30-2720-002-3 2 / NA / [id number] Cmpt Fem E Kn Rt Lpsflx Gndr Rpl [id number] - Sna - [id number] Implanted:Qty: 1 on 08/11/2017 by Patrick Lala MD at [facility] Orthopedic Implant Right: Knee [employer] 03/25/2027 [id number] / NA / [id number] Ins Artc 3-4 E-F 12mm Kn Fx Rpl [id number] - Sna - [id number] Implanted:Qty: 1 on 08/11/2017 by Patrick Lala MD at [facility] Orthopedic Implant Right: Knee [employer] 01/23/2022 [id number] 2 / NA / [id number] Plt Tib 38a11x2vw Nxgn Kn Cmnt Rpl [id number] + [id number] - Sna - [id number] Implanted:Qty: 1 on 08/11/2017 by Patrick Lala MD at [facility] Plate Right: Knee [employer] [id number] 07/26/202711-5173-335-0 2 / NA / [id number] [place] Port Description:indwelling right chest port for ongoing iron infusions Cancellous Screw 4.0 - Sna - [id number] Implanted:Qty: 1 on 08/11/2017 by Patrick Lala MD at [facility] Screw Right: Knee [employer] 08/11/2021 [id number] / NA / NA Port Description:right chest port for iron infusions Insurance [employer] MEDICARE MEDICAID [place] Care Teams Operations Vocational Instructor Relationship Specialty Start Date End Date Yuri Godinez MD PCP - General 12/06/16
--- OUTSIDE RECORDS SUMMARY | 2025-02-10 11:00 | XMS_ITS | Clinical Summary ---
Author Organization [facility] Address [address] [place] [address] Care Team Providers Care Vascular Technologist Sonographer Name Role Phone Yuri Godinez MD Primary Care Provider [phone] Social History Tobacco Use Types Packs/Day Years [...] ZOSTER (SHINGLES) VACCINE Completed 08/19/2022, Care Teams Vascular Technologist Sonographer Relationship Specialty Start Date End Date Yuri Godinez MD PCP - General Family Medicine 12/09/22
--- OUTSIDE RECORDS SUMMARY | 2025-02-10 11:00 | XMS_ITS | Encounter Summary ---
Author Organization [facility] Address [address], [address] [place] [address] Care Team Providers Care Property Maintenance Supervisor Name Role Phone Yuri Godinez MD Primary Care Provider [phone] Encounter Details Date Type Department Care Team (Late st Contact Info) Description 09/29/2023 Direct Admit Orders [facility] [address] [place] [address] Luzma Gaspar PA Social History Tobacco Use Types Packs/Day Years Used Date Smoking Tobacco: Never Smokeless Tobacco: Never Alcohol Use Standard Drinks/Week Comments Never 0 (1 standard drink = 0.6 oz pur e alcohol) [facility] Utilities Answer Date Recorded In the [...] place to sleep or slept in a fci (including now)? No 09/30/2023 Food Insecurity Answer [...] on filedocumented in this encounter Care Teams Property Maintenance Supervisor Relationship Specialty Start Date End Date Yuri Godinez MD [address] [id number] PCP - General Family Medicine 09/07/18 documented as of this encounter
--- OUTSIDE RECORDS SUMMARY | 2025-02-10 11:00 | XMS_ITS | Clinical Summary ---
Author Organization [facility] Address [address] [place], [place] [address] Support Name Relationship Address Phone Delio Moser Spouse [address] [place] [address] Jyothi Perez Daughter Unknown [phone] Care Team Providers Care Manager Social Work Name Role Phone Yuri Godinez MD Primary Care Provider [phone] Allergies Active Allergy Reactions Criticality Noted Date [...] N ot on file 06/03/2020 Data from: https://[email or web address].medicine.[email or web address].edu/. Last address used for calculation Not on [...] - 8.0 g/dL 11/06/2019 2:52 PM EDT [facility] Albumin 4.0 3.9 - 4.9 g/dL 11/06/2019 2:52 PM EDT [facility] Calcium 8.1(L) 8.5 - 10.2 mg/dL 11/06/2019 2:52 PM EDT [facility] Bilirubin, Total 0.2 0.2 - 1.3 mg/dL 11/06/2019 2:52 PM EDT [facility] Alkaline Phosphatase 147(H) 34 - 123 U/L 11/06/2019 2:52 PM EDT [facility] AST 27 13 - 35 U/L 11/06/2019 2:52 PM EDT [facility] Glucose 90 74 - 99 mg/dL 11/06/2019 2:52 PM EDT [facility] Comment: The [place] Diabetes Association (ADA) provides guidance for cutoff [...] Standards of Medical Care in Diabetes 2016, [place] Diabetes Association. Diabetes Care. 2016.39(Suppl 1). BUN 19 7 - 21 mg/dL 11/06/2019 2:52 PM EDT [facility] Creatinine 0.96 0.58 - 0.96 mg/dL 11/06/2019 2:52 PM EDT [facility] Sodium 122(L) 136 - 144 mmol/L 11/06/2019 2:52 PM EDT [facility] Potassium 4.2 3.7 - 5.1 mmol/L 11/06/2019 2:52 PM EDT [facility] Chloride 88(L) 97 - 105 mmol/L 11/06/2019 2:52 PM EDT [facility] CO2 26 22 - 30 mmol/L 11/06/2019 2:52 PM EDT [facility] Anion Gap 8(L) 9 - 18 mmol/L 11/06/2019 2:52 PM EDT [facility] ALT 20 7 - 38 U/L 11/06/2019 2:52 PM EDT [facility] eGFR- >60 11/06/2019 2:52 PM EDT [facility] eGFR-All Other Races 60 . 11/06/2019 2:52 PM EDT [facility] Comment: eGFR (Estimated GFR) Units of measure: [...] EDT Charles Tesfaye MD LABORATORY Final Result [facility] [address] [place] [address] [facility] [address] [place], [place] from Last 3 Months or Most Recently Relevant to Health Maintenance Insurance [facility] DUAL COMPLETE HMO SNP Member Subscriber Plan / Payer ( fective 2018-Present) Name:Mabel Moser Relation to Subscriber:Self Name:Mabel Moser Payer ID:[id number] (NAIC) Group ID:[id number] Type:Medicare Address: [address] [address] MEDICAID [place] Care Teams Manager Social Work Relationship Specialty Start Date End Date Yuri Godinez MD PCP - General Family Medicine 09/24/12
--- OUTSIDE RECORDS SUMMARY | 2025-02-10 11:01 | XMS_ITS | Patient Health Record ---
Author Organization The [facility] [place] Address [address] [place] [address] Care Team Providers Care Rig Builder Helper Name Role Phone Vinay Godinez Primary Care Provider [phone] Ny Rae Unavailable [phone] Sheridan Love Unavailable [phone] Allergies Allergen (clinical drug ingredient) Drug/Non Drug Allergy documented on EMR Reaction Allergy Type Onset Date Status amoxicillin / clavulanate Augmentin vomiting Drug Allergy Active povidone-iodine Betadine blisters Drug Allergy A ctive Substance with sulfonamide structure and antibacterial mechanism of action (substance) Sulfa Antibiotics vomiting Drug Allergy Active Results Component Value Reference Range Notes Osmolality Reviewed date:07/04/2024 12:33:49 PM Interpretation: Performing Lab: Notes/Report: [facility] , Osmolality 285 280-301 mOsmol/kg Performed at: - [facility] [id number] Developer Advocate: Nicolas rAenas MD, Phone: [phone] Performing Lab: see note LC - [facility] LB BNP Reviewed date:02/28/2024 07:15:28 PM Interpretation: Performing Lab: Notes/Report: [facility] , NT Pro B Type Natriuretic Pept 1082.0 <=900.0 pg/mL Performing Lab: see note ML - [facility] LB CBC AUTO DIFF Reviewed date:02/28/2024 07:15:28 PM Interpretation: Performing Lab: Notes/Report: [facility] , White Blood Count 7.0 4.0-11.0 10 [...] Performing Lab: see note ML - [facility] LB D-DIMER Reviewed date:02/28/2024 07:15:28 PM Interpretation: Performing Lab: Notes/Report: [facility] , D Dimer 1.09 <=0.59 mg/L FEU [...] hospitalization. Performing Lab: see note ML - [facility] LB PROF 14(COMP METB) Reviewed date:02/28/2024 07:15:28 PM Interpretation: Performing Lab: Notes/Report: [facility] , Sodium 134 136-145 mmol/L Potassium 5.2 [...] 0.9 Performing Lab: see note ML - [facility] LB Prothrombin Time INR Reviewed date:02/28/2024 07:15:28 PM Interpretation: Performing Lab: Notes/Report: [facility] , Prothrombin Time 10.3 9.0-11.6 sec INR 0.97 DESIRED INR: 2.0-3.0 CONDITIONS NOT LISTED BELOW 2.5-3.5 FOR PROSTHETIC HEART VALVE REPLACEMENT 2.5-3.5 RECURRENT THROMBOSIS Performing Lab: see note ML - [facility] LB PROF 14(COMP METB) Reviewed date:03/05/2024 10:17:14 PM Interpretation: Performing Lab: Notes/Report: [facility] , Sodium 133 136-145 mmol/L Potassium 4.0 [...] Ratio 0.9 Performing Lab: see note - [facility] LB Osmolality Reviewed date:03/07/2024 09:26:42 PM Interpretation: Performing Lab: Notes/Report: [facility] , Osmolality 294 280-301 mOsmol/kg Performed at: [facility] [id number] Developer Advocate: Nicolas Arenas MD, Phone: [phone] Performing Lab: see note - [facility] LB PROF 14(COMP METB) Reviewed date:03/19/2024 07:55:12 PM Interpretation: Performing Lab: Notes/Report: [facility] , Sodium 133 136-145 mmol/L Potassium 4.1 [...] Ratio 1.0 Performing Lab: see note - [facility] LB XR chest 1V Reviewed date:03/30/2024 11:38:06 AM Interpretation: Performing Lab: Notes/Report: Source Facility: [place] [address] [place] [address] XRay Report Signed Patient: JOSE MOSER MR#: [id number] : 1960 Acct:[id number] Age/Sex: 64 / F ADM Date: 03/29/24 Loc: ER Attending Dr: Ordering Physician: Teressa Gregory M.D. Date of Service: 03/29/24 Procedure(s): XR chest 1V Accession Number(s): [id number] cc: Angle Godinez M.D.; Teressa Gregory M.D. [place] [address] Patient Name: JOSE MOSER MRN: [facility]:[id number] date: 1960 Sex: F Assigned Patient Location: ED.MAIN Current Patient Location: ER Accession/Order Number: [id number] Exam Date: 03/29/2024 14:07 Report Date: 03/29/2024 [...] Dictated By: Ang Davenport M.D. Signed By: 03/29/241444 DD/ 42 TD/TT: Medical Officer: [place] [address] XRay Report Signed Patient: ARSLAN MOSER MR#: [id number] : 1960 Acct:[id number] Age/Sex: 64 / F ADM Date: 03/29/24 Loc: ER Attending Dr: Ordering Physician: Teressa Gregory M.D. Date of Service: 03/29/24 Procedure(s): XR chest 1V Accession Number(s): [id number] cc: Angle Godinez M.D. ; Teressa Gregory M.D. [place] [address] Patient Name: JOSE MOSER MRN: [facility]:[id number] date: 1960 Sex: F Assigned Patient Location: ED.MAIN Current Patient Loca tion: ER Accession/Order Numb er: [id number] Exam Date: 14:07 Report Date: 03/29/2024 14:43 [...] Dictated By: Ang Davenport M.D. Signed By: 03/29/241444 DD/ 144 TD/TT: Medical Officer: CBC AUTO DIFF Reviewed date:04/01/2024 09:32:13 AM Interpretation: Performing Lab: Notes/Report: [facility] , White Blood Count 6.9 4.0-11.0 10 [...] Performing Lab: see note ML - [facility] LB PROF CHEM 8 (BAS METB) Reviewed date:04/01/2024 09:32:13 AM Interpretation: Performing Lab: Notes/Report: [facility] , Sodium 135 136-145 mmol/L Potassium 3.9 [...] mg/dL Performing Lab: see note ML - [facility] LB CBC AUTO DIFF Reviewed date:04/01/2024 09:32:13 AM Interpretation: Performing Lab: Notes/Report: [facility] , White Blood Count 6.0 4.0-11.0 10 [...] Performing Lab: see note ML - [facility] LB PROF CHEM 8 (BAS METB) Reviewed date:04/01/2024 09:32:13 AM Interpretation: Performing Lab: Notes/Report: [facility] , Sodium 131 136-145 mmol/L Potassium 4.2 [...] mg/dL Performing Lab: see note ML - [facility] LB CBC AUTO DIFF Reviewed date:04/06/2024 03:22:17 PM Interpretation: Performing Lab: Notes/Report: [facility] , White Blood Count 7.1 4.0-11.0 10 [...] 3/uL Performing Lab: see note ML - [facility] LB PROF 14(COMP METB) Reviewed date:04/06/2024 03:22:17 PM Interpretation: Performing Lab: Notes/Report: [facility] , Sodium 133 136-145 mmol/L Potassium 3.8 [...] Performing Lab: see note ML - [facility] LB CBC AUTO DIFF Reviewed date:04/16/2024 04:01:23 PM Interpretation: Performing Lab: Notes/Report: [facility] , White Blood Count 7.7 4.0-11.0 10 [...] Performing Lab: see note ML - [facility] LB PROF 14(COMP METB) Reviewed date:04/28/2024 10:46:46 AM Interpretation: Performing Lab: Notes/Report: [facility] , Sodium 134 136-145 mmol/L Potassium 3.5 [...] 0.9 Performing Lab: see note ML - [facility] LB FERRITIN Reviewed date:04/28/2024 10:46:46 AM Interpretation: Performing Lab: Notes/Report: [facility] , Ferritin 20.0 8.0-252.0 ng/mL Performing Lab: see note [facility] LB IRON AND TIBC Reviewed date:04/28/2024 10:46:46 AM Interpretation: Performing Lab: Notes/Report: [facility] , Iron 48.0 50.0-170.0 ug/dL Total Iron Binding Capacity 362.0 250.0-450.0 ug/dL Percent Iron Saturation 13.3 Performing Lab: see note - [facility] LB Osmolality Reviewed date:05/20/2024 02:02:21 PM Interpretation: Performing Lab: Notes/Report: [facility] , Osmolality 286 280-301 mOsmol/kg Performed at: - [facility] [address] [id number] Developer Advocate: Nicolas Arenas MD, Phone: [phone] Performing Lab: see note LC - [facility] LB PROF 14(COMP METB) Reviewed date:05/22/2024 05:24:02 PM Interpretation: Performing Lab: Notes/Report: [facility] , Sodium 135 136-145 mmol/L Potassium 4.5 3.5-5.1 mmol/L Chloride 102 98-107 mmol/L Carbon Dioxide 22.8 21.0-32.0 mmol/L Anion Gap 14.7 Glucose 83 74-106 mg/dL Blood Urea Nitrogen 48.0 7.0-18.0 mg/dL Creatinine 1.72 0.55-1.02 mg/dL Estimated GFR ( [place] 36 >=60 mL/min/1.73m 2 Estimated GFR (Non- Oma 30 >=60 mL/min/1.73m 2 BUN Creatinine Ratio 27.9 Calcium 8.1 8.5-10.1 mg/dL Bilirubin Total 0.2 0.2-1.0 mg/dL Aspartate Amino Transferase 26 15-37 U/L Alanine Aminotransferase 26 14-59 U/L Alkaline Phosphatase 240 46-116 U/L Total Protein 6.6 6.4-8.2 g/dL Albumin Level 3.2 3.4-5.0 g/dL Globulin 3.4 Albumin Globulin Ratio 0.9 Performing Lab: see note ML - [facility] LB PROF 14(COMP METB) Reviewed date:05/28/2024 08:26:27 PM Interpretation: Performing Lab: Notes/Report: [facility] , Sodium 135 136-145 mmol/L Potassium 4.4 [...] 0.8 Performing Lab: see note ML - [facility] LB PROF 14(COMP METB) Reviewed date:06/12/2024 03:53:07 PM Interpretation: Performing Lab: Notes/Report: [facility] , Sodium 136 136-145 mmol/L Potassium 4.5 [...] Performing Lab: see note ML - [facility] LB CBC AUTO DIFF Reviewed date:08/04/2024 11:09:08 AM Interpretation: Performing Lab: Notes/Report: [facility] , White Blood Count 6.4 4.0-11.0 10 [...] 3/uL Performing Lab: see note ML - [facility] LB Osmolality Reviewed date:08/05/2024 01:00:46 PM Interpretation: Performing Lab: Notes/Report: [facility] , Osmolality 297 280-301 mOsmol/kg Performed at: - [facility] [address] [id number] Developer Advocate: Nicolas Arenas MD, Phone: [phone] Performing Lab: see note LC - [facility] LB XR HAND LT MIN 3V Reviewed date:08/05/2024 01:00:46 PM Interpretation: Performing Lab: Notes/Report: Source Facility: [place] [address] XRay Report Signed Patient: JOSE MOSER MR#: [id number] : 1960 Acct:[id number] Age/Sex: 64 / F ADM Date: 08/02/24 Loc: RAD Attending Dr: Angle Godinez M.D. Ordering Physician: Angle Godinez M.D. Date of Service: 08/02/24 Procedure(s): XR hand LT min 3V Accession Number(s): [id number] cc: Angle Godinez M.D. [place] [address] Patient Name: JOSE MOSER MRN: [id number] date: 1960 Sex: F Assigned Patient Location: [facility] Current Patient Location: Accession/Order Number: [id number] Exam Date: 08/02/2024 12:30 Report Date: 08/05/2024 [...] M.D. Signed By: 08/05/24854 DD/ 2 TD/TT: Medical Officer: [place] [address] XRay Report Signed Patient: ARSLAN MOSER MR#: [id number] : 1960 Acct:[id number] Age/Sex: 64 / F ADM Date: 08/02/24 Loc: RAD Attending Dr: Charlette Godinez M.D. Ordering Physician: Angle Godinez M.D. Date of Service: 08/02/24 Procedure(s): XR kilpatrick d LT min 3V Accession Number(s): [id number] cc: Angle Godinez M.D. [place] [address] Patient Name: JOSE MOSER MRN: [id number] date: 1960 Sex: F Assigned Patient Location: [facility] Current Patient Location: Accession/Order Numb er: [id number] Exam Date: 08/02/2024 12:30 Report Date: 08/05/2024 [...] Dictated By: Yayo Alcala M.D. Signed By: 08/05/24854 DD/ 2 TD/TT: Medical Officer: CBC AUTO DIFF Reviewed date:08/25/2024 12:31:05 PM Interpretation: Performing Lab: Notes/Report: [facility] , White Blood Count 6.9 4.0-11.0 10 [...] 3/uL Performing Lab: see note ML - [facility] LB CBC AUTO DIFF Reviewed date:09/01/2024 09:49:36 AM Interpretation: Performing Lab: Notes/Report: [facility] , White Blood Count 6.7 4.0-11.0 10 [...] 0.00-0.03 10 3/uL Performing Lab: see note [facility] LB Osmolality Reviewed date:09/03/2024 09:28:43 AM Interpretation: Performing Lab: Notes/Report: [facility] , Osmolality 286 280-301 mOsmol/kg Performed at: [facility] [address] [id number] Developer Advocate: Nicolas Arenas MD, Phone: [phone] Performing Lab: see note [facility] LB Blood Culture 1 Reviewed date:09/22/2024 03:51:35 PM Interpretation: Performing Lab: Notes/Report: [facility] , Blood Culture 1 See Below For Report Blood Culture 1 NG5D NO GROWTH AT 5 DAYS.^NO GROWTH AT 5 DAYS. Performing Lab: see note [facility] LB Blood Culture 2 Reviewed date:09/22/2024 03:51:35 PM Interpretation: Performing Lab: Notes/Report: [facility] , Blood Culture 2 See Below For Report Blood Culture 2 NG5D NO GROWTH AT 5 DAYS.^NO GROWTH AT 5 DAYS. Performing Lab: see note [facility] LB CBC AUTO DIFF Reviewed date:02/22/2024 12:47:23 PM Interpretation: Performing Lab: Notes/Report: [facility] , White Blood Count 6.6 4.0-11.0 10 [...] Performing Lab: see note ML - [facility] LB PROF 14(COMP METB) Reviewed date:02/22/2024 04:23:38 PM Interpretation: Performing Lab: Notes/Report: [facility] , Sodium 136 136-145 mmol/L Potassium 4.8 [...] Ratio 1.0 Performing Lab: see note - [facility] LB Osmolality Reviewed date:02/29/2024 06:05:33 PM Interpretation: Performing Lab: Notes/Report: [facility] , Osmolality 292 280-301 mOsmol/kg Performed at: [facility] [address] [id number] Developer Advocate: Nicolas Arenas MD, Phone: [phone] Performing Lab: see note - [facility] LB PROF 14(COMP METB) Reviewed date:09/29/2024 03:19:39 PM Interpretation: Performing Lab: Notes/Report: [facility] , Sodium 131 136-145 mmol/L Potassium 4.3 [...] Ratio 0.8 Performing Lab: see note - [facility] LB Osmolality Reviewed date:09/30/2024 07:08:29 PM Interpretation: Performing Lab: Notes/Report: [facility] , Osmolality 286 280-301 mOsmol/kg Performed at: - [facility] [address] [id number] Developer Advocate: Nicolas Arenas MD, Phone: [phone] Performing Lab: see note - [facility] LB Troponin I High Sensitivity Reviewed date:02/28/2024 07:15:28 PM Interpretation: Performing Lab: Notes/Report: [facility] , Troponin I High Sensitivity 7.4 4.0-51.3 pg/mL CUT-OFF POINTS HAVE BEEN ESTABLISHED BASED ON THE FOURTH UNIVERSAL DEFINITION OF MYOCARDIAL INFARCTION. THE UPPER REFERENCE LIMIT (URL) OF TROPONIN, DEFINED THE 99TH PERCENTILE OF cTnI DISTRIBUTION IN A REFERENCE POPULATION, HAS BEEN CONFIRMED THE DECISION THRESHOLD FOR IN DIAGNOSIS. 99TH PERCENTILE = 51.4 PG/ML NOTE: HIGH-SENSITIVITY TROPONIN ASSAY IS NOT INTENDED TO BE USED IN ISOLATION BUT SHOULD BE INTERPRETED IN CONJUNCTION WITH OTHER DIAGNOSTIC AND CLINICAL INFORMATION. Performing Lab: see note ML - [facility] LB BNP Reviewed date:02/29/2024 06:05:33 PM Interpretation: Performing Lab: Notes/Report: [facility] , NT Pro B Type Natriuretic Pept 802.0 <=900.0 pg/mL Performing Lab: see note ML - [facility] LB CBC AUTO DIFF Reviewed date:10/07/2024 08:19:45 PM Interpretation: Performing Lab: Notes/Report: [facility] , White Blood Count 7.7 4.0-11.0 10 [...] 10 3/uL Performing Lab: see note - [facility] LB PROF 14(COMP METB) Reviewed date:10/07/2024 08:19:45 PM Interpretation: Performing Lab: Notes/Report: [facility] , Sodium 133 136-145 mmol/L Potassium 4.3 [...] Ratio 0.9 Performing Lab: see note - [facility] LB Osmolality Reviewed date:10/08/2024 01:04:41 PM Interpretation: Performing Lab: Notes/Report: [facility] , Osmolality 293 280-301 mOsmol/kg Performed at: [facility] [address] [id number] Developer Advocate: Nicolas Arenas MD, Phone: [phone] Performing Lab: see note LC - [facility] LB CBC AUTO DIFF Reviewed date:02/29/2024 06:05:33 PM Interpretation: Performing Lab: Notes/Report: [facility] , White Blood Count 5.7 4.0-11.0 10 [...] Performing Lab: see note ML - [facility] LB PROF 14(COMP METB) Reviewed date:02/29/2024 06:05:33 PM Interpretation: Performing Lab: Notes/Report: [facility] , Sodium 134 136-145 mmol/L Potassium 4.9 [...] 0.9 Performing Lab: see note ML - [facility] LB PROF 14(COMP METB) Reviewed date:10/15/2024 02:22:26 PM Interpretation: Performing Lab: Notes/Report: [facility] , Sodium 135 136-145 mmol/L Potassium 4.3 [...] 0.9 Performing Lab: see note ML - [facility] Second ABO/RH Type Reviewed date:02/29/2024 06:05:33 PM Interpretation: Performing Lab: Notes/Report: [facility] , Blood Type #2 A Positive ECG 12 lead Reviewed date:10/15/2024 08:28:30 PM Interpretation: Performing Lab: Notes/Report: Source Facility: [place] [address] [place] [address] Electrocardiograph Report Signed Patient: JOSE MOSER MR#: [id number] : 1960 Acct:[id number] Age/Sex: 64 / F ADM Date: 10/15/24 Loc: ER Attending Dr: Ordering Physician: Teressa Gregory M.D. 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 Signed By: 10/15/24 1823 DD/ 1622 TD/TT: Medical Officer: [place] [address] Electrocardiograph Report Signed Patient: ARSLAN MOSER MR#: [id number] : 1960 Acct:[id number] Age/Sex: 64 / F ADM Date: 10/15/24 Loc: ER Attending Dr: Ordering Physician: Teressa Gregory M.D. 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 Signed By: 10/15/24 1823 DD/ 1622 TD/TT: Medical Officer: Packed Red Blood Cells Reviewed date:02/29/2024 06:05:33 PM Interpretation: Performing Lab: Notes/Report: Packed Red Blood Cells [id number] OP RC TRANSFUSED 02/29/24 1020 Type and Screen Reviewed date:02/29/2024 06:05:33 PM Interpretation: Performing Lab: Notes/Report: [facility] , Blood Type A Positive Antibody Screen NEGATIVE CBC AUTO DIFF Reviewed date:03/03/2024 08:04:10 PM Interpretation: Performing Lab: Notes/Report: [facility] , White Blood Count 6.6 4.0-11.0 10 [...] 3/uL Performing Lab: see note ML - [facility] LB PROF 14(COMP METB) Reviewed date:03/03/2024 08:04:10 PM Interpretation: Performing Lab: Notes/Report: [facility] , Sodium 131 136-145 mmol/L Potassium 4.5 [...] 0.8 Performing Lab: see note ML - [facility] LB CBC AUTO DIFF Reviewed date:03/05/2024 10:17:14 PM Interpretation: Performing Lab: Notes/Report: [facility] , White Blood Count 7.6 4.0-11.0 10 [...] Performing Lab: see note ML - [facility] LB CBC AUTO DIFF Reviewed date:03/13/2024 05:07:26 PM Interpretation: Performing Lab: Notes/Report: [facility] , White Blood Count 6.9 4.0-11.0 10 [...] Performing Lab: see note ML - [facility] LB CBC AUTO DIFF Reviewed date:10/22/2024 03:59:28 PM Interpretation: Performing Lab: Notes/Report: [facility] , White Blood Count 6.5 4.0-11.0 10 [...] 3/uL Performing Lab: see note ML - [facility] LB PROF 14(COMP METB) Reviewed date:03/13/2024 05:07:26 PM Interpretation: Performing Lab: Notes/Report: [facility] , Sodium 133 136-145 mmol/L Potassium 4.4 [...] 1.0 Performing Lab: see note ML - [facility] LB Osmolality Reviewed date:03/17/2024 08:58:04 PM Interpretation: Performing Lab: Notes/Report: [facility] , Osmolality 301 280-301 mOsmol/kg Performed at: - [facility] [address] [id number] Developer Advocate: Nicolas Arenas MD, Phone: [phone] Performing Lab: see note LC - [facility] LB XR shoulder LT min 2V Reviewed date:03/15/2024 08:16:20 AM Interpretation: Performing Lab: Notes/Report: Source Facility: [facility] [place] [address] [place] [address] XRay Report Signed Patient: JOSE MOSER MR#: [id number] : 1960 Acct:[id number] Age/Sex: 64 / F ADM Date: 03/13/24 Loc: RAD Attending Dr: Angle Godinez M.D. Ordering Physician: Angle Godinez M.D. Date of Service: 03/13/24 Procedure(s): XR shoulder LT min 2V Accession Number(s): [id number] cc: Angle Godinez M.D. [place] [address] Patient Name: JOSE MOSER MRN: [id number] date: 1960 Sex: F Assigned Patient Location: [facility] Current Patient Location: [facility] Accession/Order Number: [id number] Exam Date: 03/13/2024 11:45 Report Date: 03/15/2024 07:38 At the request of: AGNLE GODINEZ Procedure: XR shoulder LT min 2V [...] Dictated By: Carlos Alcala M.D. Signed By: 03/15/24 0740 DD/ 0738 TD/TT: Medical Officer: [place] [address] XRay Report Signed Patient: ARSLAN MOSER MR#: [id number] : 1960 Acct:[id number] Age/Sex: 64 / F ADM Date: 03/13/24 Loc: RAD Attending Dr: Charlette Godinez M.D. Ordering Physician: Angle Godinez M.D. Date of Service: 03/13/24 Procedure(s): XR allyssa chelitader LT min 2V Accession Number(s): [id number] cc: Angle Godinez M.D. The [address] [address] Patient Name: JOSE MOSER MRN: [id number] date: 1960 Sex: F Assigned Patient Location: RAD Current Patient Loca tion: RAD Accession/Order Numb er: [id number] Exam Date: 03/13/2024 11:45 Report Date: 03/15/2024 [...] Dictated By: Yayo Alcala M.D. Signed By: 03/15/24 0740 DD/ 0738 TD/TT: Medical Officer: PROF Pascal(COMP METB) Reviewed date:11/12/2024 08:06:12 PM Interpretation: Performing Lab: Notes/Report: [facility] , Sodium 136 136-145 mmol/L Potassium 3.4 [...] 0.9 Performing Lab: see note ML - [facility] LB Osmolality Reviewed date:11/16/2024 11:46:04 AM Interpretation: Performing Lab: Notes/Report: [facility] , Osmolality 302 280-301 mOsmol/kg Performed at: [facility] [address] [id number] Developer Advocate: Nicolas Arenas MD, Phone: [phone] Performing Lab: see note - [facility] LB CBC AUTO DIFF Reviewed date:11/26/2024 04:03:27 PM Interpretation: Performing Lab: Notes/Report: [facility] , White Blood Count 7.4 4.0-11.0 10 [...] 3/uL Performing Lab: see note ML - [facility] LB CBC AUTO DIFF Reviewed date:03/19/2024 07:55:12 PM Interpretation: Performing Lab: Notes/Report: [facility] , White Blood Count 6.6 4.0-11.0 10 [...] 10 3/uL Performing Lab: see note - [facility] LB Osmolality Reviewed date:11/30/2024 05:03:08 PM Interpretation: Performing Lab: Notes/Report: [facility] , Osmolality 298 280-301 mOsmol/kg Performed at: [facility] [address] [id number] Developer Advocate: Nicolas Arenas MD, Phone: [phone] Performing Lab: see note LC - [facility] LB Osmolality Reviewed date:03/22/2024 08:05:29 AM Interpretation: Performing Lab: Notes/Report: [facility] , Osmolality 301 280-301 mOsmol/kg Performed at: [facility] [address] [id number] Developer Advocate: Nicolas Arenas MD, Phone: [phone] Performing Lab: see note - [facility] LB CBC AUTO DIFF Reviewed date:03/27/2024 09:16:56 PM Interpretation: Performing Lab: Notes/Report: [facility] , White Blood Count 7.1 4.0-11.0 10 [...] 0.00-0.03 10 3/uL Performing Lab: see note [facility] LB Osmolality Reviewed date:12/12/2024 09:19:03 AM Interpretation: Performing Lab: Notes/Report: [facility] , Osmolality 288 280-301 mOsmol/kg Performed at: [address] [id number] Developer Advocate: Nicolas Arenas MD, Phone: [phone] Performing Lab: see note [facility] 14(COMP METB) Reviewed date:03/27/2024 09:16:56 PM Interpretation: Performing Lab: Notes/Report: [facility] , Sodium 132 136-145 mmol/L Potassium 4.3 [...] Ratio 1.0 Performing Lab: see note - [facility] LB Osmolality Reviewed date:04/01/2024 09:32:13 AM Interpretation: Performing Lab: Notes/Report: [facility] , Osmolality 288 280-301 mOsmol/kg Performed at: [address] [id number] Developer Advocate: Nicolas Arenas MD, Phone: [phone] Performing Lab: see note - [facility] LB BNP Reviewed date:03/30/2024 11:38:06 AM Interpretation: Performing Lab: Notes/Report: [facility] , NT Pro B Type Natriuretic Pept 805.0 <=900.0 pg/mL Performing Lab: see note ML - [facility] LB PROF 14(COMP METB) Reviewed date:01/02/2025 06:15:12 PM Interpretation: Performing Lab: Notes/Report: [facility] , Sodium 131 136-145 mmol/L Potassium 4.0 [...] 0.8 Performing Lab: see note ML - [facility] LB CBC AUTO DIFF Reviewed date:03/30/2024 11:38:06 AM Interpretation: Performing Lab: Notes/Report: [facility] , White Blood Count 6.9 4.0-11.0 10 [...] 10 3/uL Performing Lab: see note - [facility] PROF CHEM 8 (BAS METB) Reviewed date:03/30/2024 11:38:06 AM Interpretation: Performing Lab: Notes/Report: [facility] , Sodium 133 136-145 mmol/L Potassium 4.1 [...] 8.5-10.1 mg/dL Performing Lab: see note - [facility] MAGNESIUM Reviewed date:01/02/2025 06:15:12 PM Interpretation: Performing Lab: Notes/Report: [facility] , Magnesium 2.9 1.8-2.4 mg/dL Performing Lab: see note - [facility] MICROALB CREAT RATIO RANDOM Reviewed date:01/02/2025 06:15:12 PM Interpretation: Performing Lab: Notes/Report: [facility] , Microalbumin Urine Random <1.3 <=30.0 mg/dL Creatinine Urine Random 34.82 20.00-30 0.00 mg/dL Performing Lab: see note ML - [facility] LB PHOSPHORUS Reviewed date:01/02/2025 06:15:12 PM Interpretation: Performing Lab: Notes/Report: [facility] , Phosphorus 5.2 2.6-4.7 mg/dL Performing Lab: see note ML - [facility] LB PROF 14(COMP METB) Reviewed date:01/02/2025 06:15:12 PM Interpretation: Performing Lab: Notes/Report: [facility] , Sodium 135 136-145 mmol/L Potassium 4.8 [...] Performing Lab: see note ML - [facility] LB UA RANDOM Reviewed date:01/02/2025 06:15:12 PM Interpretation: Performing Lab: Notes/Report: [facility] , Color Urine LT. YELLOW YELLOW Clarity Urine CLEAR CLEAR Specific [place] Urine <=1.005 1.005-1.025 pH Urine 7.0 5.0-9.0 Protein Urine NEGATIVE NEG/TRACE mg/dL Glucose Urine UA NEGATIVE NEGATIVE mg/dL Bilirubin Urine NEGATIVE NEGATIVE Ketones Urine NEGATIVE NEGATIVE mg/dL Blood Urine TRACE-I NEGATIVE Nitrite Urine NEGATIVE NEGATIVE Urobilinogen Urine 0.2 0.2-1.0 EU/dL Leukocyte Esterase Urine TRACE NEGATIVE Performing Lab: see note [facility] LB URIC ACID SERUM Reviewed date:01/02/2025 06:15:12 PM Interpretation: Performing Lab: Notes/Report: [facility] , Uric Acid 5.8 2.6-6.0 mg/dL Performing Lab: see note - [facility] URINE T PROTEIN CREAT RATIO Reviewed date:01/02/2025 06:15:12 PM Interpretation: Performing Lab: Notes/Report: [facility] , Total Protein Urine Random 11.2 <=11.9 mg/dL Protein Creatinine Ratio Urine 0.32 Performing Lab: see note [facility] VITAMIN D 25 [place] Reviewed date:01/02/2025 06:15:12 PM Interpretation: Performing Lab: Notes/Report: [facility] , Vitamin D 69.4 <20 ng/mL Vit D deficient 20-<30 ng/mL Vit D insufficient 30-100 ng/mL Vit D sufficient >100 ng/mL Potential Toxicity Performing Lab: see note [facility] LB Osmolality Reviewed date:01/06/2025 12:29:14 PM Interpretation: Performing Lab: Notes/Report: [facility] , Osmolality 275 280-301 mOsmol/kg Performed at: [facility] [address] [id number] Developer Advocate: Nicolas Arenas MD, Phone: [phone] Performing Lab: see note [facility] LB PTH, Intact Reviewed date:01/03/2025 12:58:41 PM Interpretation: Performing Lab: Notes/Report: [facility] , PTH, Intact 87 15-65 pg/mL Performed at: [address] [id number] Developer Advocate: Josué Crouch PhD, Phone: [phone] Performing Lab: see note [facility] CBC AUTO DIFF Reviewed date:01/07/2025 04:38:56 PM Interpretation: Performing Lab: Notes/Report: [facility] , White Blood Count 5.3 4.0-11.0 10 [...] Performing Lab: see note ML - [facility] LB Troponin I High Sensitivity Reviewed date:03/30/2024 11:38:06 AM Interpretation: Performing Lab: Notes/Report: [facility] , Troponin I High Sensitivity 11.2 4.0-51.3 pg/mL CUT-OFF POINTS HAVE BEEN ESTABLISHED BASED ON THE FOURTH UNIVERSAL DEFINITION OF MYOCARDIAL INFARCTION. THE UPPER REFERENCE LIMIT (URL) OF TROPONIN, DEFINED THE 99TH PERCENTILE OF cTnI DISTRIBUTION IN A REFERENCE POPULATION, HAS BEEN CONFIRMED THE DECISION THRESHOLD FOR IN DIAGNOSIS. 99TH PERCENTILE = 51.4 PG/ML NOTE: HIGH-SENSITIVITY TROPONIN ASSAY IS NOT INTENDED TO BE USED IN ISOLATION BUT SHOULD BE INTERPRETED IN CONJUNCTION WITH OTHER DIAGNOSTIC AND CLINICAL INFORMATION. Performing Lab: see note ML - [facility] LB ECG 12 lead Reviewed date:03/30/2024 11:38:06 AM Interpretation: Performing Lab: Notes/Report: Source Facility: [facility]-[address] [place] [address] [place] [address] Electrocardiograph Report Signed Patient: JOSE MOSER MR#: [id number] : 1960 Acct:[id number] Age/Sex: 64 / F ADM Date: 03/29/24 Loc: MS 220-[address]: Angle Godinez M.D. Ordering Physician: Teressa Gregory M.D. 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 Signed By: 03/30/24 0745 DD/ 1403 TD/TT: Medical Officer: [place] [address] Electrocardiograph Report Signed Patient: ARSLAN MOSER MR#: [id number] : 1960 Acct:[id number] Age/Sex: 64 / F ADM Date: 03/29/24 Loc: MS 220-[address]: Charlette Godinez M.D. Ordering Physician: Teressa Gregory M.D. 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 Signed By: 03/30/24 0745 DD/ 1403 TD/TT: Medical Officer: CBC AUTO DIFF Reviewed date:01/21/2025 02:22:57 PM Interpretation: Performing Lab: Notes/Report: [facility] , White Blood Count 4.3 4.0-11.0 10 [...] 3/uL Performing Lab: see note ML - [facility] LB FL guided needle placement Reviewed date:03/30/2024 11:38:06 AM Interpretation: Performing Lab: Notes/Report: Source Facility: [place] [address] Fluoroscopy Report Signed Patient: JOSE MOSER MR#: [id number] : 1960 Acct:[id number] Age/Sex: 64 / F ADM Date: 03/29/24 Loc: MRI Attending Dr: Angle Godinez M.D. Ordering Physician: Angle Godinez M.D. Date of Service: 03/29/24 Procedure(s): FL guided needle placement Accession Number(s): [id number] cc: Angle Godinez M.D. [place] [address] Patient Name: JOSE MOSER MRN: [id number] date: 1960 Sex: F Assigned Patient Location: MRI Current Patient Location: MRI Accession/Order Number: [id number] Exam Date: 03/29/2024 08:45 Report Date: 03/29/2024 [...] Signed By: 03/29/24 1020 DD/ 1018 TD/TT: Medical Officer: [place] [address] Fluoroscopy Report Signed Patient: ARSLAN MOSER MR#: [id number] : 1960 Acct:[id number] Age/Sex: 64 / F ADM Date: 03/29/24 Loc: MRI Attending Dr: Charlette Godinez M.D. Ordering Physician: Angle Godinez M.D. Date of Service: 03/29/24 Procedure(s): FL joey ded needle placement Accession Number(s): [id number] cc: Angle Godinez M.D. [place] [id number] Patient Name: JOSE MOSER MRN: [id number] date: 1960 Sex: F Assigned Patient Location: MRI Current Patient Loca tion: MRI Accession/Order Numb er: [id number] Exam Date: 08:45 Report Date: 03/29/2024 10:18 [...] ssful arthrogram without complication. 2. Please see [facility] MRI arthrogram report. Electronically authenticated by: ANG DAVENPORT Date: 03/29/2024 10:18 Dictated By: Ang Davenport M.D. Signed By: 03/29/24 1020 DD/ 1018 TD/TT: Medical Officer: FL arthrogram shoulder Reviewed date:03/30/2024 11:38:06 AM Interpretation: Performing Lab: Notes/Report: Source Facility: [place] [address] Fluoroscopy Report Signed Patient: JOSE MOSER MR#: [id number] : 1960 Acct:[id number] Age/Sex: 64 / F ADM Date: 03/29/24 Loc: MRI Attending Dr: Angle Godinez M.D. Ordering Physician: Angle Godinez M.D. Date of Service: 03/29/24 Procedure(s): FL arthrogram shoulder Accession Number(s): [id number] cc: Angle Godinez M.D. [place] [address] Patient Name: JOSE MOSER MRN: [id number] date: 1960 Sex: F Assigned Patient Location: MRI Current Patient Location: MRI Accession/Order Number: [id number] Exam Date: 03/29/2024 08:45 Report Date: 03/29/2024 [...] Signed By: 03/29/24 1020 DD/ 1018 TD/TT: Medical Officer: [place] [address] Fluoroscopy Report Signed Patient: ARSLAN MOSER MR#: [id number] : 1960 Acct:[id number] Age/Sex: 64 / F ADM Date: 03/29/24 Loc: MRI Attending Dr: Charlette Godinez M.D. Ordering Physician: Angle Godinez M.D. Date of Service: 03/29/24 Procedure(s): FL arthrogram shoulder Accession Number(s): [id number] cc: Angle Godinez M.D. [address] [address] Patient Name: JOSE MOSER MRN: [facility]:[id number] date: 1960 Sex: F Assigned Patient Location: MRI Current Patient Loca tion: MRI Accession/Order Numb er: [id number] Exam Date: 08:45 Report Date: 03/29/2024 10:18 [...] Signed By: 03/29/24 1020 DD/ 1018 TD/TT: Medical Officer: MR nunez RT shaun daniels Reviewed date:03/30/2024 11:38:06 AM Interpretation: Performing Lab: Notes/Report: Source Facility: [place] [address] [place] [address] Magnetic Resonance Report Signed Patient: JOSE MOSER MR#: [id number] : 1960 Acct:[id number] Age/Sex: 64 / F ADM Date: 03/29/24 Loc: MRI Attending Dr: Angle Hoy M.D. Ordering Physician: Angle Godinez M.D. Date of Service: 03/29/24 Procedure(s): MR shoulder RT w con Accession Number(s): [id number] cc: Angle Godinez M.D. [address] [address] Patient Name: JOSE MOSER MRN: [facility]:[id number] date: 1960 Sex: F Assigned Patient Location: MRI Current Patient Location: ED.MAIN Accession/Order Number: [id number] Exam Date: 03/29/2024 10:00 Report Date: 03/29/2024 [...] M.D. Signed By: 03/29/241552 DD/ 50 TD/TT: Medical Officer: [place] [address] Magnetic Resonance Report Signed Patient: ARSLAN MOSER MR#: [id number] : 1960 Acct:[id number] Age/Sex: 64 / F ADM Date: 03/29/24 Loc: MRI Attending Dr: Charlette Godinez M.D. Ordering Physician: Angle Gdoinez M.D. Date of Service: 03/29/24 Procedure(s): MR allyssa bauer RT w con Accession Number(s): [id number] cc: Angle Godinez M.D. [place] [address] Patient Name: JOSE MOSER MRN: [id number] date: 1960 Sex: F Assigned Patient Location: MRI Current Patient Loca tion: ED.MAIN Accession/Order Numb er: [id number] Exam Date: 10:00 Report Date: 03/29/2024 15:51 At the request of: ANGLE GODINEZ Procedure: MR should er RT w con EXAMINATION: MR dhillon ldrobert RT [...] o visible tear or attrition. POSTERIOR: No educational psychology teacher ior labrum abnormality. CAPSULE ANTERIOR/INFERIOR: N o [...] Davenport M.D. Signed By: 03/29/24 1553 DD/ 155 TD/TT: Medical Officer: XR lumbar spine 2-3V Reviewed date:01/27/2025 06:31:59 PM Interpretation: Performing Lab: Notes/Report: Source Facility: [place] [address] [place] [address] XRay Report Signed Patient: JOSE MOSER MR#: [id number] : 1960 Acct:[id number] Age/Sex: 64 / F ADM Date: 01/27/25 Loc: RAD Attending Dr: Angle Godinez M.D. Ordering Physician: Angle Godinez M.D. Date of Service: 01/27/25 Procedure(s): XR lumbar spine 2-3V Accession Number(s): [id number] cc: Angle Godinez M.D. [place] [id number] Patient Name: JOSE MOSER MRN: [id number] date: 1960 Sex: F Assigned Patient Location: [facility] Current Patient Location: [facility] Accession/Order Number: [id number] Exam Date: 01/27/2025 14:32 Report Date: 01/27/2025 14:35 At the request of: ANGLE GODINEZ MD Procedure: XR lumbar spine 2-3V LUMBAR SPINE - 3 views CLINICAL HISTORY: Low back pain worsening over the past 6 months. COMPARISON: Lumbar spine 11/11/2023 FINDINGS: Lumbar spine posterior fixation L3-L5 without hardware complication. An IVC filter is seen projecting over the right sacrum. Vertebral body heights appear maintained. Disc heights appear unchanged from the prior study. SI joints demonstrate degenerative change. XR/XR lumbar spine 2-3V IMPRESSION: POSTERIOR FIXATION L3-L5 WITHOUT HARDWARE COMPLICATION. NO SIGNIFICANT CHANGE IN LUMBAR SPINE FINDINGS COMPARED TO THE 2023 STUDY. Impression dictated by: Chris Puri Jr., DChristie 01/27/2025 2:35 PM Dictation Location: [place] [address] Electronically authenticated by: [id number] Y Date: 01/27/2025 14:35 Dictated By: Chris Puri M.D. Signed By: 01/27/251437 DD/ 34 TD/TT: Medical Officer: [place] [address] XRay Report Signed Patient: ARSLAN MOSER MR#: [id number] : 1960 Acct:[id number] Age/Sex: 64 / F ADM Date: 01/27/25 Loc: SYBIL Attending Dr: Charlette Godinez M.D. Ordering Physician: Angle Godinez M.D. Date of Service: 01/27/25 Procedure(s): XR lum bar spine 2-3V Accession Number(s): [id number] cc: Angle Godinez M.D. [place] [id number] Patient Name: JOSE MOSER MRN: [id number] date: 1960 Sex: F Assigned Patient Location: [facility] Current Patient Loca tion: RAD Accession/Order Numb er: [id number] Exam Date: 01/27/2025 14:32 Report Date: 01/27/2025 14:35 At the request of: ANGLE GODINEZ MD Procedure: XR lumbar spine 2-3V LUMBAR SPINE - 3 views CLINICAL HISTORY: Lo w back pain worsening over the past 6 months. COMPARISON: Lumbar s pine 11/11/2023 FINDINGS: Lumbar spi ne posterior fixation L3-L5 without hardware complication. An IVC filter is see n projecting over the right sacrum. Vertebral body heights appear maintained. Disc heights appear unchanged from the prior study. SI joints demonstrate degenerative change. X R/XR lumbar spine 2-3V IMPRESSION: POSTERIOR FIXATION L 3-L5 WITHOUT HARDWARE COMPLICATION. NO SIGNIFICANT CHANGE IN LUMBAR SPINE FIND INGS COMPARED TO THE 2023 STUDY. Impression dictated by: Chris Puri Jr., D.O. 01/27/2025 2:35 PM Dictation Location: [place] [address] Electronically authenticated by: [id number] Y Date: 01/27/2025 14:35 Dictated By: Chris Puri M.D. Signed By: 01/27/25 1438 DD/ 34 TD/TT: Medical Officer: CBC AUTO DIFF Reviewed date:02/04/2025 04:08:34 PM Interpretation: Performing Lab: Notes/Report: [facility] , White Blood Count 5.1 4.0-11.0 10 3/uL Red Blood Count 3.57 4.20-5.40 10 6/uL Hemoglobin 10.6 12.0-16.0 g/dL Hematocrit 34.4 36.0-48.0 % Mean Corpuscular Volume 96.4 81.0-99.0 fL Mean Corpuscular Hemoglobin 29.7 26.7-34.0 pg Mean Corpuscular HGB Conc 30.8 29.9-35.2 g/dL Red Cell Distribution Width 14.7 11.0-15.0 % Platelet Count 226 150-450 10 3/uL Mean Platelet Volume 9.7 9.5-13.5 fL Neutrophils Percent Auto 63.9 43.0-75.0 % Lymphocytes Percent Auto 25.8 20.5-60.0 % Monocytes Percent Auto 7.0 1.7-12.0 % Eosinophils Percent Auto 2.5 0.9-7.0 % Basophils Percent Auto 0.6 0.2-2.0 % Immature Granulocytes Pct Auto 0.2 0.0-0.5 % Neutrophils Absolute Auto 3.3 1.4-6.5 10 3/uL Lymphocytes Absolute Auto 1.3 1.2-3.8 10 3/uL Monocytes Absolute Auto 0.4 0.3-0.8 10 3/uL Eosinophils Absolute Auto 0.1 0.0-0.7 10 3/uL Basophils Absolute Auto 0.0 0.0-0.1 10 3/uL Immature Granulocytes Abs Auto 0.01 0.00-0.03 10 3/uL Performing Lab: see note - [facility] LB PROF 14(COMP METB) Reviewed date:02/04/2025 04:08:34 PM Interpretation: Performing Lab: Notes/Report: [facility] , Sodium 133 136-145 mmol/L Potassium 4.4 3.5-5.1 mmol/L Chloride 106 98-107 mmol/L Carbon Dioxide 21.3 21.0-32.0 mmol/L Anion Gap 10.1 Glucose 69 74-106 mg/dL Blood Urea Nitrogen 23.0 7.0-18.0 mg/dL Creatinine 1.41 0.55-1.02 mg/dL Estimated GFR ( Catarina 46 >=60 mL/min/1.73m 2 Estimated GFR (Non- Oma 38 >=60 mL/min/1.73m 2 BUN Creatinine Ratio 16.3 Calcium 8.4 8.5-10.1 mg/dL Bilirubin Total 0.2 0.2-1.0 mg/dL Aspartate Amino Transferase 30 15-37 U/L Alanine Aminotransferase 35 14-59 U/L Alkaline Phosphatase 230 46-116 U/L Total Protein 6.5 6.4-8.2 g/dL Albumin Level 3.1 3.4-5.0 g/dL Globulin 3.4 Albumin Globulin Ratio 0.9 Performing Lab: see note ML - [facility] LB MR shoulder LT w con Reviewed date:04/01/2024 07:43:07 PM Interpretation: Performing Lab: Notes/Report: Source Facility: [place] [address] Magnetic Resonance Report Signed Patient: JOSE MOSER MR#: [id number] : 1960 Acct:[id number] Age/Sex: 64 / F ADM Date: 03/29/24 Loc: MRI Attending Dr: Angle Godinez M.D. Ordering Physician: Angle Godinez M.D. Date of Service: 03/29/24 Procedure(s): MR shoulder LT w con Accession Number(s): [id number] cc: Angle Godinez M.D. [place] [address] Patient Name: JOSE MOSER MRN: [id number] date: 1960 Sex: F Assigned Patient Location: MRI Current Patient Location: MRI Accession/Order Number: [id number] Exam Date: 03/29/2024 10:00 Report Date: 03/29/2024 [...] Signed By: 04/01/24 1448 DD/ 1551 TD/TT: Medical Officer: [place] [address] Magnetic Resonance Report Signed Patient: ARSLAN MOSER MR#: [id number] : 1960 Acct:[id number] Age/Sex: 64 / F ADM Date: 03/29/24 Loc: MRI Attending Dr: Charlette Godinez M.D. Ordering Physician: Angle Godinez M.D. Date of Service: 03/29/24 Procedure(s): MR allyssa bauer LT w con Accession Number(s): [id number] cc: Angle Godinez M.D. [place] [id number] Patient Name: JOSE MOSER MRN: [id number] date: 1960 Sex: F Assigned Patient Location: MRI Current Patient Loca tion: MRI Accession/Order Numb er: [id number] Exam Date: 10:00 Report Date: 03/29/2024 15:51 At the request of: ANGLE GODINEZ Procedure: MR should er LT w con EXAMINATION: MR dhillon lder RT [...] o visible tear or attrition. POSTERIOR: No educational psychology teacher ior labrum abnormality. CAPSULE ANTERIOR/INFERIOR: N o [...] Signed By: 04/01/24 1448 DD/ 1551 TD/TT: Medical Officer: CBC AUTO DIFF Reviewed date:03/30/2024 11:38:06 AM Interpretation: Performing Lab: Notes/Report: [facility] , White Blood Count 5.2 4.0-11.0 10 [...] Performing Lab: see note ML - [facility] LB PROF CHEM 8 (BAS METB) Reviewed date:03/30/2024 11:38:06 AM Interpretation: Performing Lab: Notes/Report: [facility] , Sodium 133 136-145 mmol/L Potassium 3.8 3.5-5.1 mmol/L Chloride 101 98-107 mmol/L Carbon Dioxide 25.3 21.0-32.0 mmol/L Anion Gap 10.5 Glucose 94 74-106 mg/dL Blood Urea Nitrogen 62.0 7.0-18.0 mg/dL Creatinine 1.74 0.55-1.02 mg/dL Estimated GFR ( Catarina 36 >=60 mL/min/1.73m 2 Estimated GFR (Non- Oma 30 >=60 mL/min/1.73m 2 BUN Creatinine Ratio 35.6 Calcium 8.3 8.5-10.1 mg/dL Performing Lab: see note ML - [facility] LB UA RANDOM W or MICROSCOPIC Reviewed date:03/30/2024 11:38:06 AM Interpretation: Performing Lab: Notes/Report: [facility] , Color Urine LT. YELLOW YELLOW Clarity Urine CLEAR CLEAR Specific [place] Urine 1.010 1.005-1.025 pH Urine 6.0 5.0-9.0 [...] Culture Indicated NO Performing Lab: see note ML - [facility] US venous doppler LE BI Reviewed date:03/30/2024 08:22:14 PM Interpretation: Performing Lab: Notes/Report: Source Facility: [place] [address] Ultrasound Report Signed Patient: JOSE MOSER MR#: [id number] : 1960 Acct:[id number] Age/Sex: 64 / F ADM Date: 03/29/24 Loc: MS 220-[address]: Angle Godinez M.D. Ordering Physician: Angle Godinez M.D. Date of Service: 03/30/24 Procedure(s): US venous doppler LE LT Accession Number(s): [id number] cc: Angle Godinez M.D. [place] [address] Patient Name: JOSE MOSER MRN: [id number] date: 1960 Sex: F Assigned Patient Location: MS Current Patient Location: MS Accession/Order Number: [id number] Exam Date: 03/30/2024 12:15 Report Date: 03/30/2024 [...] Dictated By: Ragini Limon M.D. Signed By: 03/30/241543 DD/ 40 TD/TT: Medical Officer: [place] [address] Ultrasound Report Signed Patient: ARSLAN MOSER MR#: [id number] : 1960 Acct:[id number] Age/Sex: 64 / F ADM Date: 03/29/24 Loc: MS 220-[address]: Charlette Godinez M.D. Ordering Physician: Angle Godinez M.D. Date of Service: 03/30/24 Procedure(s): US saw ous doppler LE LT Accession Number(s): [id number] cc: Angle Godinez M.D. [place] [id number] Patient Name: JOSE MOSER MRN: [id number] date: 1960 Sex: F Assigned Patient Location: MS Current Patient Loca tion: MS Accession/Order Numb er: [id number] Exam Date: 12:15 Report Date: 03/30/2024 15:41 [...] Signed By: 03/30/24 1544 DD/ 154 TD/TT: Medical Officer: Osmolality Reviewed date:04/11/2024 12:49:17 PM Interpretation: Performing Lab: Notes/Report: [facility] , Osmolality TNP . mOsmol/kg Test not performed. Insufficient specimen to perform or complete analysis. CONTACTED [facility] ON 04-11-2024 Performing Lab: see note LC - [facility] LB PROF 14(COMP METB) Reviewed date:04/16/2024 04:01:23 PM Interpretation: Performing Lab: Notes/Report: [facility] , Sodium 138 136-145 mmol/L Potassium 4.5 [...] Ratio 0.8 Performing Lab: see note - [facility] LB Osmolality Reviewed date:04/24/2024 06:21:05 PM Interpretation: Performing Lab: Notes/Report: [facility] , Osmolality 288 280-301 mOsmol/kg Performed at: [address] [id number] Developer Advocate: Nicolas Arenas MD, Phone: [phone] Performing Lab: see note - [facility] LB CBC AUTO DIFF Reviewed date:04/28/2024 10:46:46 AM Interpretation: Performing Lab: Notes/Report: [facility] , White Blood Count 6.8 4.0-11.0 10 [...] 10 3/uL Performing Lab: see note - [facility] LB Osmolality Reviewed date:05/08/2024 07:33:10 PM Interpretation: Performing Lab: Notes/Report: [facility] , Osmolality 288 280-301 mOsmol/kg Performed at: [address] [id number] Developer Advocate: Nicolas Arenas MD, Phone: [phone] Performing Lab: see note - [facility] LB CBC AUTO DIFF Reviewed date:05/12/2024 01:25:34 PM Interpretation: Performing Lab: Notes/Report: [facility] , White Blood Count 7.5 4.0-11.0 10 [...] 10 3/uL Performing Lab: see note - [facility] LB PROF 14(COMP METB) Reviewed date:05/12/2024 01:25:34 PM Interpretation: Performing Lab: Notes/Report: [facility] , Sodium 136 136-145 mmol/L Potassium 3.6 [...] 0.8 Performing Lab: see note ML - [facility] LB Osmolality Reviewed date:07/03/2024 06:52:37 PM Interpretation: Performing Lab: Notes/Report: [facility] , Osmolality 285 mOsmol/kg Reference Interval: 280-301 mOsmol/kg Performing Labs 01: BN - [facility] [address] [id number] Dir: Nicolas Arenas MD For inquiries, the physician may contact Branch: [phone] Lab: [phone] Performing Lab: see note LC - [facility] LB CBC AUTO DIFF Reviewed date:05/14/2024 08:03:43 PM Interpretation: Performing Lab: Notes/Report: [facility] , White Blood Count 6.5 4.0-11.0 10 [...] Performing Lab: see note ML - [facility] LB PROF 14(COMP METB) Reviewed date:05/14/2024 08:03:43 PM Interpretation: Performing Lab: Notes/Report: [facility] , Sodium 134 136-145 mmol/L Potassium 4.4 [...] Ratio 0.9 Performing Lab: see note - [facility] LB CBC AUTO DIFF Reviewed date:05/22/2024 05:24:02 PM Interpretation: Performing Lab: Notes/Report: [facility] , White Blood Count 5.5 4.0-11.0 10 [...] 10 3/uL Performing Lab: see note - [facility] LB Osmolality Reviewed date:05/26/2024 12:15:00 PM Interpretation: Performing Lab: Notes/Report: [facility] , Osmolality 288 280-301 mOsmol/kg Performed at: [facility] [address] [id number] Developer Advocate: Nicolas Arenas MD, Phone: [phone] Performing Lab: see note - [facility] LB CBC AUTO DIFF Reviewed date:05/28/2024 08:26:27 PM Interpretation: Performing Lab: Notes/Report: [facility] , White Blood Count 6.8 4.0-11.0 10 [...] 10 3/uL Performing Lab: see note - [facility] LB Osmolality Reviewed date:05/30/2024 12:43:32 PM Interpretation: Performing Lab: Notes/Report: [facility] , Osmolality 290 280-301 mOsmol/kg Performed at: [address] [id number] Developer Advocate: Nicolas Arenas MD, Phone: [phone] Performing Lab: see note - [facility] LB CBC AUTO DIFF Reviewed date:06/12/2024 03:53:07 PM Interpretation: Performing Lab: Notes/Report: [facility] , White Blood Count 6.6 4.0-11.0 10 [...] 3/uL Performing Lab: see note ML - [facility] LB Osmolality Reviewed date:06/17/2024 07:08:27 PM Interpretation: Performing Lab: Notes/Report: [facility] , Osmolality 296 280-301 mOsmol/kg Performed at: [address] [id number] Developer Advocate: Nicolas Arenas MD, Phone: [phone] Performing Lab: see note - [facility] LB CBC AUTO DIFF Reviewed date:07/02/2024 03:26:48 PM Interpretation: Performing Lab: Notes/Report: [facility] , White Blood Count 4.2 4.0-11.0 10 [...] Performing Lab: see note ML - [facility] LB PROF 14(COMP METB) Reviewed date:07/02/2024 03:26:48 PM Interpretation: Performing Lab: Notes/Report: [facility] , Sodium 137 136-145 mmol/L Potassium 3.2 [...] 0.9 Performing Lab: see note ML - [facility] LB CBC AUTO DIFF Reviewed date:07/09/2024 03:58:21 PM Interpretation: Performing Lab: Notes/Report: [facility] , White Blood Count 9.9 4.0-11.0 10 [...] 3/uL Performing Lab: see note ML - [facility] LB PROF 14(COMP METB) Reviewed date:07/09/2024 03:58:21 PM Interpretation: Performing Lab: Notes/Report: [facility] , Sodium 134 136-145 mmol/L Potassium 4.8 [...] 0.9 Performing Lab: see note ML - [facility] LB Osmolality Reviewed date:07/12/2024 10:41:16 AM Interpretation: Performing Lab: Notes/Report: [facility] , Osmolality 285 280-301 mOsmol/kg Performed at: - [facility] [id number] Developer Advocate: Nicolas Arenas MD, Phone: [phone] Performing Lab: see note - [facility] LB CBC AUTO DIFF Reviewed date:07/18/2024 12:12:59 PM Interpretation: Performing Lab: Notes/Report: [facility] , White Blood Count 5.7 4.0-11.0 10 [...] Performing Lab: see note ML - [facility] LB PROF 14(COMP METB) Reviewed date:07/18/2024 05:32:07 PM Interpretation: Performing Lab: Notes/Report: [facility] , Sodium 137 136-145 mmol/L Potassium 4.4 [...] 0.8 Performing Lab: see note ML - [facility] LB Osmolality Reviewed date:07/21/2024 12:00:58 PM Interpretation: Performing Lab: Notes/Report: [facility] , Osmolality 290 280-301 mOsmol/kg Performed at: [facility] [address] [id number] Developer Advocate: Nicolas Arenas MD, Phone: [phone] Performing Lab: see note - [facility] LB CBC AUTO DIFF Reviewed date:07/27/2024 04:09:36 PM Interpretation: Performing Lab: Notes/Report: [facility] , White Blood Count 6.5 4.0-11.0 10 [...] 3/uL Performing Lab: see note ML - [facility] LB Osmolality Reviewed date:08/28/2024 09:03:48 PM Interpretation: Performing Lab: Notes/Report: [facility] , Osmolality 290 280-301 mOsmol/kg Performed at: - [facility] [id number] Developer Advocate: Nicolas Arenas MD, Phone: [phone] Performing Lab: see note - [facility] LB PROF 14(COMP METB) Reviewed date:09/01/2024 09:49:36 AM Interpretation: Performing Lab: Notes/Report: [facility] , Sodium 135 136-145 mmol/L Potassium 3.8 [...] 0.9 Performing Lab: see note ML - [facility] LB CBC AUTO DIFF Reviewed date:09/05/2024 06:43:23 PM Interpretation: Performing Lab: Notes/Report: [facility] , White Blood Count 6.0 4.0-11.0 10 [...] Performing Lab: see note ML - [facility] LB PROF 14(COMP METB) Reviewed date:09/05/2024 06:43:23 PM Interpretation: Performing Lab: Notes/Report: [facility] , Sodium 134 136-145 mmol/L Potassium 3.8 [...] 0.9 Performing Lab: see note ML - [facility] LB Osmolality Reviewed date:09/08/2024 02:59:02 PM Interpretation: Performing Lab: Notes/Report: [facility] , Osmolality 290 280-301 mOsmol/kg [facility] [place], [place] [id number] Developer Advocate: Nicolas Arenas MD, Phone: [phone] Performed at: [facility] Performing Lab: see note - [facility] LB CBC AUTO DIFF Reviewed date:09/11/2024 05:38:12 PM Interpretation: Performing Lab: Notes/Report: [facility] , White Blood Count 4.8 4.0-11.0 10 [...] 0.00-0.03 10 3/uL Performing Lab: see note [facility] LB PROF 14(COMP METB) Reviewed date:09/11/2024 05:38:12 PM Interpretation: Performing Lab: Notes/Report: [facility] , Sodium 136 136-145 mmol/L Potassium 3.5 [...] 1.0 Performing Lab: see note ML - [facility] Osmolality Reviewed date:09/16/2024 08:39:55 PM Interpretation: Performing Lab: Notes/Report: [facility] , Osmolality 292 280-301 mOsmol/kg Performed at: - [facility] [id number] Developer Advocate: Nicolas Arenas MD, Phone: [phone] Performing Lab: see note - [facility] LB BNP Reviewed date:09/16/2024 08:39:55 PM Interpretation: Performing Lab: Notes/Report: [facility] , NT Pro B Type Natriuretic Pept 749.0 <=900.0 pg/mL Performing Lab: see note ML - [facility] LB CBC AUTO DIFF Reviewed date:09/15/2024 07:34:53 PM Interpretation: Performing Lab: Notes/Report: [facility] , White Blood Count 4.3 4.0-11.0 10 [...] Performing Lab: see note ML - [facility] LB INFLUENZA A AND B AG Reviewed date:09/15/2024 07:34:53 PM Interpretation: Performing Lab: Notes/Report: [facility] , Influenza Virus A Antigen Negative Negative [...] Performing Lab: see note ML - [facility] LB LACTATE or LACTIC ACID Reviewed date:09/16/2024 08:39:55 PM Interpretation: Performing Lab: Notes/Report: [facility] , Lactate/Lactic Acid 0.6 0.4-2.0 mmol/L Performing Lab: see note - [facility] LB PROF 14(COMP METB) Reviewed date:09/16/2024 08:39:55 PM Interpretation: Performing Lab: Notes/Report: [facility] , Sodium 135 136-145 mmol/L Potassium 3.7 [...] 0.9 Performing Lab: see note ML - [facility] LB Prothrombin Time INR Reviewed date:09/16/2024 08:39:55 PM Interpretation: Performing Lab: Notes/Report: [facility] , Prothrombin Time 10.9 9.0-11.6 sec INR 1.03 DESIRED INR: 2.0-3.0 CONDITIONS NOT LISTED BELOW 2.5-3.5 FOR PROSTHETIC HEART VALVE REPLACEMENT 2.5-3.5 RECURRENT THROMBOSIS Performing Lab: see note - [facility] LB Troponin I High Sensitivity Reviewed date:09/16/2024 08:39:55 PM Interpretation: Performing Lab: Notes/Report: [facility] , Troponin I High Sensitivity 15.1 4.0-51.3 pg/mL CUT-OFF POINTS HAVE BEEN ESTABLISHED BASED ON THE FOURTH UNIVERSAL DEFINITION OF MYOCARDIAL INFARCTION. THE UPPER REFERENCE LIMIT (URL) OF TROPONIN, DEFINED THE 99TH PERCENTILE OF cTnI DISTRIBUTION IN A REFERENCE POPULATION, HAS BEEN CONFIRMED THE DECISION THRESHOLD FOR IN DIAGNOSIS. 99TH PERCENTILE = 51.4 PG/ML NOTE: HIGH-SENSITIVITY TROPONIN ASSAY IS NOT INTENDED TO BE USED IN ISOLATION BUT SHOULD BE INTERPRETED IN CONJUNCTION WITH OTHER DIAGNOSTIC AND CLINICAL INFORMATION. Performing Lab: see note ML - [facility] LB Venous Blood Gas Reviewed date:09/16/2024 08:39:55 PM Interpretation: Performing Lab: Notes/Report: [facility] , pH VBG 7.346 7.330-7.430 PCO2 VBG 47.8 40.0-52.0 mmHg Performing Lab: see note ML - [facility] LB SARS-CoV-2 Ag* Reviewed date:09/15/2024 07:34:53 PM Interpretation: Performing Lab: Notes/Report: [facility] , SARS-CoV-2 Ag NEGATIVE NEGATIVE This test [...] Performing Lab: see note ML - [facility] LB ECG 12 lead Reviewed date:09/16/2024 08:39:55 PM Interpretation: Performing Lab: Notes/Report: Source Facility: [facility]-[address] [place] [address] [place] [address] Electrocardiograph Report Signed Patient: JOSE MOSER MR#: [id number] : 1960 Acct:[id number] Age/Sex: 64 / F ADM Date: 09/15/24 Loc: [place] 218-[address]: Angle Godinez M.D. 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 Measurements Intervals [place] Rate: 84 P: 90 MS: 142 QRS: -4 QRSD: 98 T: -6 QT: 384 QTc: 424 Interpretive Statements NORMAL SINUS RHYTHM Minimal voltage criteria for LVH, may be normal variant ARTIFACT IN LEAD(S) Borderline ECG Compared to ECG 03/29/2024 14:03:36 No significant change Electronically Signed On 09-16-2024 7:08:51 EDT by BENJIE DANG M.D. Dictated By: BENJIE DANG Signed By: 09/16/24708 DD/ 19 TD/TT: Medical Officer: [place] [address] Electrocardiograph Report Signed Patient: ARSLAN MOSER MR#: [id number] : 1960 Acct:[id number] Age/Sex: 64 / F ADM Date: 09/15/24 Loc: [place] 218-[address]: Charlette Godinez M.D. 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 Measurements Intervals [place] Rate: 84 P: 90 MS: 142 QRS: -4 QRSD: 98 T: -6 QT: 384 QTc: 424 Interpretive Statements NORMAL SINUS RHYTHM Minimal voltage crit eria for LVH, may be normal variant ARTIFACT IN LEAD(S) Borderline ECG Compared to ECG 03/29/2024 14:03:36 No significant change Electronically Jenny d On 09-16-2024 7:08:51 EDT by BENJIE DANG M.D. Dictated By: BENJIE DANG Signed By: 09/16/24708 DD/ 19 TD/TT: Medical Officer: MAGNESIUM Reviewed date:09/16/2024 08:39:55 PM Interpretation: Performing Lab: Notes/Report: Comment use blood this am? [facility] , Magnesium 2.1 1.8-2.4 mg/dL Performing Lab: see note - [facility] LB PROF CHEM 8 (BAS METB) Reviewed date:09/16/2024 08:39:55 PM Interpretation: Performing Lab: Notes/Report: [facility] , Sodium 137 136-145 mmol/L Potassium 3.5 [...] mg/dL Performing Lab: see note ML - [facility] LB CBC no Diff (Hemogram) Reviewed date:09/16/2024 08:39:55 PM Interpretation: Performing Lab: Notes/Report: [facility] , White Blood Count 3.6 4.0-11.0 10 [...] fL Performing Lab: see note ML - [facility] LB CBC AUTO DIFF Reviewed date:09/17/2024 12:10:47 PM Interpretation: Performing Lab: Notes/Report: [facility] , White Blood Count 4.5 4.0-11.0 10 [...] 3/uL Performing Lab: see note ML - [facility] LB PROF CHEM 8 (BAS METB) Reviewed date:09/17/2024 12:10:47 PM Interpretation: Performing Lab: Notes/Report: [facility] , Sodium 138 136-145 mmol/L Potassium 3.5 3.5-5.1 mmol/L Chloride 102 98-107 mmol/L Carbon Dioxide 29.3 21.0-32.0 mmol/L Anion Gap 10.2 Glucose 111 74-106 mg/dL Blood Urea Nitrogen 43.0 7.0-18.0 mg/dL Creatinine 1.78 0.55-1.02 mg/dL Estimated GFR ( Catarina 35 >=60 mL/min/1.73m 2 Estimated GFR (Non- Oma 29 >=60 mL/min/1.73m 2 BUN Creatinine Ratio 24.2 Calcium 8.3 8.5-10.1 mg/dL Performing Lab: see note ML - [facility] LB CBC AUTO DIFF Reviewed date:09/18/2024 10:55:14 AM Interpretation: Performing Lab: Notes/Report: [facility] , White Blood Count 3.3 4.0-11.0 10 [...] 3/uL Performing Lab: see note ML - [facility] LB PROF CHEM 8 (BAS METB) Reviewed date:09/18/2024 10:55:14 AM Interpretation: Performing Lab: Notes/Report: [facility] , Sodium 138 136-145 mmol/L Potassium 3.6 3.5-5.1 mmol/L Chloride 102 98-107 mmol/L Carbon Dioxide 31.1 21.0-32.0 mmol/L Anion Gap 8.5 Glucose 150 74-106 mg/dL Blood Urea Nitrogen 47.0 7.0-18.0 mg/dL Creatinine 1.99 0.55-1.02 mg/dL Estimated GFR ( Catarina 31 >=60 mL/min/1.73m 2 Estimated GFR (Non- Oma 25 >=60 mL/min/1.73m 2 BUN Creatinine Ratio 23.6 Calcium 8.1 8.5-10.1 mg/dL Performing Lab: see note ML - [facility] LB CBC AUTO DIFF Reviewed date:09/29/2024 03:19:39 PM Interpretation: Performing Lab: Notes/Report: [facility] , White Blood Count 6.7 4.0-11.0 10 [...] 3/uL Performing Lab: see note ML - [facility] LB FERRITIN Reviewed date:09/29/2024 03:19:39 PM Interpretation: Performing Lab: Notes/Report: [facility] , Ferritin 141.0 8.0-252.0 ng/mL Performing Lab: see note ML - [facility] LB IRON AND TIBC Reviewed date:09/29/2024 03:19:39 PM Interpretation: Performing Lab: Notes/Report: [facility] , Iron 71.0 50.0-170.0 ug/dL Total Iron Binding Capacity 271.0 250.0-450.0 ug/dL Percent Iron Saturation 26.2 Performing Lab: see note ML - [facility] LB BNP Reviewed date:10/15/2024 08:28:30 PM Interpretation: Performing Lab: Notes/Report: [facility] , NT Pro B Type Natriuretic Pept 433.0 <=900.0 pg/mL Performing Lab: see note ML - [facility] LB CBC AUTO DIFF Reviewed date:10/15/2024 02:22:26 PM Interpretation: Performing Lab: Notes/Report: [facility] , White Blood Count 5.3 4.0-11.0 10 [...] 3/uL Performing Lab: see note ML - [facility] LB Osmolality Reviewed date:10/17/2024 01:08:03 PM Interpretation: Performing Lab: Notes/Report: [facility] , Osmolality 294 280-301 mOsmol/kg Performed at: [address] [id number] Developer Advocate: Nicolas Arenas MD, Phone: [phone] Performing Lab: see note - [facility] LB CBC AUTO DIFF Reviewed date:10/16/2024 10:15:17 AM Interpretation: Performing Lab: Notes/Report: [facility] , White Blood Count 4.5 4.0-11.0 10 [...] 3/uL Performing Lab: see note ML - [facility] LB PROF CHEM 8 (BAS METB) Reviewed date:10/16/2024 10:15:17 AM Interpretation: Performing Lab: Notes/Report: [facility] , Sodium 139 136-145 mmol/L Potassium 3.9 3.5-5.1 mmol/L Chloride 103 98-107 mmol/L Carbon Dioxide 24.5 21.0-32.0 mmol/L Anion Gap 15.4 Glucose 116 74-106 mg/dL Blood Urea Nitrogen 67.0 7.0-18.0 mg/dL Creatinine 2.04 0.55-1.02 mg/dL Estimated GFR ( Catarina 30 >=60 mL/min/1.73m 2 Estimated GFR (Non- Oma 25 >=60 mL/min/1.73m 2 BUN Creatinine Ratio 32.8 Calcium 8.4 8.5-10.1 mg/dL Performing Lab: see note - [facility] LB CBC AUTO DIFF Reviewed date:10/17/2024 01:08:03 PM Interpretation: Performing Lab: Notes/Report: [facility] , White Blood Count 5.9 4.0-11.0 10 [...] Performing Lab: see note ML - [facility] LB PROF CHEM 8 (BAS METB) Reviewed date:10/17/2024 01:08:03 PM Interpretation: Performing Lab: Notes/Report: [facility] , Sodium 141 136-145 mmol/L Potassium 3.8 [...] Performing Lab: see note ML - [facility] LB CBC AUTO DIFF Reviewed date:10/18/2024 08:57:23 AM Interpretation: Performing Lab: Notes/Report: [facility] , White Blood Count 5.9 4.0-11.0 10 [...] Performing Lab: see note ML - [facility] LB PROF CHEM 8 (BAS METB) Reviewed date:10/18/2024 08:57:23 AM Interpretation: Performing Lab: Notes/Report: [facility] , Sodium 139 136-145 mmol/L Potassium 3.9 3.5-5.1 mmol/L Chloride 103 98-107 mmol/L Carbon Dioxide 28.6 21.0-32.0 mmol/L Anion Gap 11.3 Glucose 80 74-106 mg/dL Blood Urea Nitrogen 63.0 7.0-18.0 mg/dL Creatinine 2.06 0.55-1.02 mg/dL Estimated GFR ( Catarina 30 >=60 mL/min/1.73m 2 Estimated GFR (Non- Oma 24 >=60 mL/min/1.73m 2 BUN Creatinine Ratio 30.6 Calcium 8.0 8.5-10.1 mg/dL Performing Lab: see note [facility] LB PROF 14(COMP METB) Reviewed date:10/22/2024 03:59:28 PM Interpretation: Performing Lab: Notes/Report: [facility] , Sodium 133 136-145 mmol/L Potassium 4.6 [...] 1.0 Performing Lab: see note ML - [facility] LB Osmolality Reviewed date:10/24/2024 12:21:56 PM Interpretation: Performing Lab: Notes/Report: [facility] , Osmolality 290 280-301 mOsmol/kg Performed at: [address] [id number] Developer Advocate: Nicolas Arenas MD, Phone: [phone] Performing Lab: see note - [facility] LB CBC AUTO DIFF Reviewed date:11/12/2024 08:06:12 PM Interpretation: Performing Lab: Notes/Report: [facility] , White Blood Count 5.2 4.0-11.0 10 [...] Performing Lab: see note ML - [facility] LB PROF 14(COMP METB) Reviewed date:11/26/2024 04:03:27 PM Interpretation: Performing Lab: Notes/Report: [facility] , Sodium 134 136-145 mmol/L Potassium 4.8 [...] 0.8 Performing Lab: see note ML - [facility] LB CBC AUTO DIFF Reviewed date:12/10/2024 12:40:51 PM Interpretation: Performing Lab: Notes/Report: [facility] , White Blood Count 5.3 4.0-11.0 10 [...] 3/uL Performing Lab: see note ML - [facility] LB PROF 14(COMP METB) Reviewed date:12/10/2024 12:40:51 PM Interpretation: Performing Lab: Notes/Report: [facility] , Sodium 133 136-145 mmol/L Potassium 4.2 [...] 0.8 Performing Lab: see note ML - [facility] LB CBC AUTO DIFF Reviewed date:01/02/2025 06:15:12 PM Interpretation: Performing Lab: Notes/Report: [facility] , White Blood Count 5.7 4.0-11.0 10 [...] 3/uL Performing Lab: see note ML - [facility] LB FERRITIN Reviewed date:01/02/2025 06:15:12 PM Interpretation: Performing Lab: Notes/Report: [facility] , Ferritin 181.0 8.0-252.0 ng/mL Performing Lab: see note - [facility] LB IRON AND TIBC Reviewed date:01/02/2025 06:15:12 PM Interpretation: Performing Lab: Notes/Report: [facility] , Iron 100.0 50.0-170.0 ug/dL Total Iron Binding Capacity 259.0 250.0-450.0 ug/dL Percent Iron Saturation 38.6 Performing Lab: see note ML - [facility] LB Osmolality Reviewed date:01/02/2025 06:15:12 PM Interpretation: Performing Lab: Notes/Report: [facility] , Osmolality 296 280-301 mOsmol/kg Performed at: - [facility] [id number] Developer Advocate: Nicolas Arenas MD, Phone: [phone] Performing Lab: see note - [facility] LB CBC AUTO DIFF Reviewed date:01/02/2025 06:15:12 PM Interpretation: Performing Lab: Notes/Report: [facility] , White Blood Count 4.9 4.0-11.0 10 [...] Performing Lab: see note ML - [facility] LB PROF 14(COMP METB) Reviewed date:01/07/2025 04:38:56 PM Interpretation: Performing Lab: Notes/Report: [facility] , Sodium 132 136-145 mmol/L Potassium 4.7 [...] Globulin Ratio 0.7 Performing Lab: see note - [facility] [facility] LB Osmolality Reviewed date:01/11/2025 02:47:53 PM Interpretation: Performing Lab: Notes/Report: [facility] , Osmolality 277 280-301 mOsmol/kg Performed at: [facility] [address] [id number] Developer Advocate: Nicolas Arenas MD, Phone: [phone] Performing Lab: see note - [facility] LB PROF 14(COMP METB) Reviewed date:01/21/2025 02:22:57 PM Interpretation: Performing Lab: Notes/Report: [facility] , Sodium 136 136-145 mmol/L Potassium 5.3 [...] Ratio 0.9 Performing Lab: see note - [facility] LB Osmolality Reviewed date:01/26/2025 07:39:37 PM Interpretation: Performing Lab: Notes/Report: [facility] , Osmolality 286 280-301 mOsmol/kg Performed at: - [facility] [address] [id number] Developer Advocate: Nicolas Arenas MD, Phone: [phone] Performing Lab: see note - [facility] LB CT abdomen pelvis w con Reviewed date:01/21/2025 02:22:57 PM Interpretation: Performing Lab: Notes/Report: Source Facility: [place] [address] CT Scan Report Signed Patient: JOSE MOSER MR#: [id number] : 1960 Acct:[id number] Age/Sex: 64 / F ADM Date: 01/21/25 Loc: CT Attending Dr: Angle Godinez M.D. Ordering Physician: Angle Godinez M.D. Date of Service: 01/21/25 Procedure(s): CT abdomen pelvis w con Accession Number(s): [id number] cc: Angle Godinez M.D. [place] [address] Patient Name: JOSE MOSER MRN: [id number] date: 1960 Sex: F Assigned Patient Location: CT Current Patient Location: CT Accession/Order Number: [id number] Exam Date: 01/21/2025 11:45 Report Date: 01/21/2025 [...] Brunner M.D. 01/21/2025 11:54 AM Dictation Location: [place] [address] Electronically authenticated by: [id number] Y Date: 01/21/2025 11:54 Dictated By: Alysia Brunner M.D. Signed By: 01/21/25 1156 DD/ 1154 TD/TT: Medical Officer: [place] [address] CT Scan Report Signed Patient: ARSLAN MOSER MR#: [id number] : 1960 Acct:[id number] Age/Sex: 64 / F ADM Date: 01/21/25 Loc: CT Attending Dr: Charlette Godinez M.D. Ordering Physician: Angle Godinez M.D. Date of Service: 01/21/25 Procedure(s): CT abd omen pelvis w con Accession Number(s): [id number] cc: Angle Godinez M.D. [place] [id number] Patient Name: JOSE MOSER MRN: [facility]:[id number] date: 1960 Sex: F Assigned Patient Location: CT Current Patient Loca tion: CT Accession/Order Numb er: [id number] Exam Date: 01/21/2025 11:45 Report Date: 01/21/2025 [...] Brunner M.D. 01/21/2025 11:54 AM Dictation Location: [place] [address] Electronically authenticated by: [id number] Y Date: 01/21/2025 11:54 Dictated By: Alysia Brunner M.D. Signed By: 01/21/25 1156 DD/ 1154 TD/TT: Medical Officer: Osmolality Reviewed date:02/07/2025 08:30:33 AM Interpretation: Performing Lab: Notes/Report: [facility] , Osmolality 279 280-301 mOsmol/kg Performed at: [address] [id number] Developer Advocate: Nicolas Arenas MD, Phone: [phone] Performing Lab: see note - [facility] LB PROF 14(COMP METB) Reviewed date:07/27/2024 04:09:36 PM Interpretation: Performing Lab: Notes/Report: [facility] , Sodium 136 136-145 mmol/L Potassium 4.4 [...] Ratio 0.9 Performing Lab: see note - [facility] LB Osmolality Reviewed date:07/29/2024 07:44:52 PM Interpretation: Performing Lab: Notes/Report: [facility] , Osmolality 290 280-301 mOsmol/kg Performed at: [address] [id number] Developer Advocate: Nicolas Arenas MD, Phone: [phone] Performing Lab: see note LC - [facility] LB PROF 14(COMP METB) Reviewed date:08/04/2024 11:09:08 AM Interpretation: Performing Lab: Notes/Report: [facility] , Sodium 138 136-145 mmol/L Potassium 4.4 [...] 0.9 Performing Lab: see note ML - [facility] LB PROF 14(COMP METB) Reviewed date:08/25/2024 12:31:05 PM Interpretation: Performing Lab: Notes/Report: [facility] , Sodium 131 136-145 mmol/L Potassium 4.2 [...] Performing Lab: see note ML - [facility] LB Reason For Referral Diagnosis 1 Supraspinatus tendon tear (S46.819A) Referral Organization [facility] Medicine Referring Provider First Name Vinay Referring Provider Last Name Mukundstefan Referring Provider Speciality Family Med jagdeep Referred Provider Ang Swan Referred Provider Specialty [...] Linzess 290 MCG TAKE 1 CAPSULE BY [facility] DAILY for 90 Active Butorphanol Tartrate 10 MG/ML 1 spray in one nostril Nasally once daily as needed Active Pramipexole Dihydrochloride 1 MG TAKE 1 TABLET BY MOUTH DAILY for 60 Active tiZANidine HCl 4 MG TAKE 1 TABLET BY HARRY TH TWO TIMES A DAY AND 2 TABLETS AT BEDTIME (MAX DAILY AMOUNT 4 TABLETS) for 30 days Active Breo Ellipta 100-25 MCG/ACT INHALE ONE P UFF BY MOUTH DAILY for 30 Active Pantoprazole Sodium 40 MG 1 tablet Orall y Once a day Active Azelastine HCl 0.05 % 1 drop into affect ed eye Ophthalmic Twice a day 08/28/2023 Active oxyCODONE-Acetaminophen 5-325 MG 2 tablet Orally every 6 hrs as needed 01/30/2025 Active Vvfaoavtfo-BHBW-Ozgovnlf 50-325-40 MG 1 tablet as needed Orally every 4 hrs Active Bumetanide 2 MG TAKE 2 TABLET BY HARRY TH 2 TIMES A DAY FOR SWELLING for 30 days Active Entresto 49-51 MG TAKE 1 TABLET BY HARRY TH 2 TIMES A DAY for 30 days Active fentaNYL 100 MCG/HR 1 patch to skin Transdermal every 72 hours 01/24/2025 Active ALPRAZolam 0.5 MG TAKE 1 TABLET BY [facility] TWICE A DAY NEEDED for 30 01/24/2025 Active Diclofenac Sodium 1 % Apply 0.5 gram Externally twice daily Active Desvenlafaxine Succinate ER 50 MG 1 tablet Orally Once a day for 90 days Active Eliquis 5 MG 1 tablet Orally Twic e a day for 07/20/2023 Active Doxepin HCl 10 MG 1-2 capsule at bedti mn Orally Once a day for 30 09/20/2023 Active Cyanocobalamin 1000 MCG/ML 1 mL Injectio n IM every month for 90 days 11/27/2023 Active Vitamin D (Ergocalciferol) 98756 UNIT 1 capsule Orally once a week Active Levothyroxine Sodium 100 MCG 1 tablet in the morning on an empty stomach Orally Once a day for 90 days Active Ciprofloxacin HCl 500 MG 1 tablet Orally every 12 hrs for 10 days 11/20/2024 Active Doxycycline Monohydrate 100 MG 1 capsule Orally bid for 10 days 11/20/2024 Active Entresto 97-103 MG 1 tablet Orally Twic e a day Active hydrOXYzine HCl 25 MG 1 tablet as needed Orally qid for 10 days 04/05/2024 Active Diflucan 100 MG 1 tablet Orally montrell y for 10 days 11/20/2024 Active Primidone 50 MG TAKE THREE TABLETS B Y MOUTH EVERY EVENING for 30 Active Immunizations Vaccine Route Administration Date Status Comme nts Flu, Flublok (73539) 18yr+, single-dose (9380-7881) Unknown 03/11/2023 Administered Pneumococcal (Pneumovax 23) Unknown [...] Problem Status W/U Status Risk Notes Problem 179250022 Chronic kidney disease, unspecified (N18.9) Active confirmed Problem 65466740 Other bacterial infections of unspecified site (A49.8) Active confirmed Problem 961251043 Anemia in chroni c kidney disease (D63.1) Active confirmed Problem Dehydration (88012222) Dehydration (E86.0) Active confirmed Problem Moderate recurrent major depression (43074366) Major depressive disorder, recurrent, moderate (F33.1) Active confirmed Problem Essential tremor (006068275) Essential tremor (G25.0) Active confirmed Problem 048082621936003 Migraine, unspecified, not intractable, without status migrainosus (G43.909) Active confirmed Problem Flaccid hemiplegia o f dominant side (518713941) Flaccid hemiplegia affecting right dominant side (G81.01) Active confirmed Problem Rheumatic tricuspid insufficiency (71116052) Rheumatic tricuspid insufficiency (I07.1) Active confirmed Problem 36017566 Venous insuffici ency (chronic) (peripheral) (I87.2) Active confirmed Problem 267015113 Lymphedema, not elsewhere classified (I89.0) Active confirmed Problem Sunburn of second degree (540657608) Sunburn of second degree (L55.1) Active confirmed Problem Sebaceous cyst (048248792) Sebaceous cyst (L72.3) Active confirmed Problem Shortness of breath (275481139) Shortness of breath (R06.02) Active confirmed Problem Sprain of shoulder joint (1978483) Other sprain of right shoulder joint, initial encounter (S43.659A) Active confirmed Problem History of fall (999888859) History of falling (Z91.81) Active confirmed Problem Morbid obesity (572980084) Morbid obesity (E66.01) Active confirmed Problem COPD - Chronic obstructive pulmonary disease (64597823) COPD (chronic obstructive pulmonary disease) (J44.9) Active confirmed Problem Gastroesophageal reflux disease (768165754) GERD (gastroesophageal reflux disease) (K21.9) Active confirmed Problem Anxiety (63372918) Anxiety (F41.9) Active confi rmed Problem Neck pain (68074253) Neck pain (M54.2) Active c onfirmed Problem Edema (88334897) Edema (R60.9) Active confirmed Problem Lymphedema (85999905) Lymphedema (I89.0) Active confirmed Problem Chronic kidney disease (952863534) CKD (chronic kidney disease) (N18.9) Active confirmed Problem Essential hypertension (28420365) Benign essential HTN (I10) Active confirmed Problem Mitral valve disorde r (35302399) Mild mitral regurgitation (I34.0) Active confirmed Problem Insomnia (281178787) Insomnia (G47.00) Active c onfirmed Problem Chronic kidney disease stage 2 (203882148) Chronic kidney disease (CKD) stage G2/A1, mildly decreased glomerular filtration rate (GFR) between 60-89 mL/min/1.73 square meter and albuminuria creatinine ratio less than 30 mg/g (N18.2) Active confirmed Problem Knee pain (6184577634) Knee pain (M25.569) Active confirmed Problem Hip pain (38194960) Hip pain (M25.559) Active c onfirmed Problem Hyponatremia (81351728) Hyponatremia (E87.1) Active confirmed Problem Spinal stenosis in cervical region (72363489) Spinal stenosis in cervical region (M48.02) Active confirmed Problem Altered thought processes (22542365) Cognitive changes (R41.89) Active confirmed Problem Osteoarthritis of knee (597599504) Knee osteoarthritis (M17.9) Active confirmed Problem Migraine (65242798) Migraine (G43.909) Active c onfirmed Problem Degeneration of cervical intervertebral disc (45240681) Degenerative disc disease, cervical (M50.30) Active confirmed Problem Tricuspid valve disorder (10532331) Mild tricuspid regurgitation (I07.1) Active confirmed Problem Acute sinusitis (22511957) Acute sinusitis (J01.90) Active confirmed Problem Mild cognitive impairment (424378897) Mild cognitive impairment (G31.84) Active confirmed Problem Osteoporosis (76940118) Osteoporosis (M81.0) Active confirmed Problem Acquired hypothyroidism (166526000) Acquired hypothyroidism (E03.9) Active confirmed Problem Pain of left knee region (finding) (910026861669486) Knee pain, left (M25.562) Active confirmed Problem Hypoglycemia (927083173) Hypoglycemia (E16.2) Active confirmed Problem Acquired spondylolisthesis (098096393) Lumbar spondylolysis (M43.06) Active confirmed Problem Chronic pain (58288996) Chronic pain (G89.29) Active confirmed Problem Iron deficiency anemia (06075195) Iron deficiency anemia (D50.9) Active confirmed Problem Pain in limb (33732926) Hand pain, left (M79.642) Active confirmed Problem Peripheral venous insufficiency (76481500) Peripheral venous insufficiency (I87.2) Active confirmed Problem Aortic cusp regurgitation (229403543) Aortic cusp regurgitation (I35.1) Active confirmed Problem Overweight (101553676) Over weight (E66.3) Active confirmed Problem Tear of right rotato r cuff (85155833227741687) Right rotator cuff tear (M75.101) Active confirmed Problem Iron deficiency anemia (40366244) Anemia, iron deficiency (D50.9) Active confirmed Problem Anemia of chronic disease (033966092) Anemia of chronic disease (D63.8) Active confirmed Problem Otitis media (72690523) Acute otitis media, right (H66.91) Active confirmed Problem Fluid overload (22441081) Fluid overload (E87.70) Active confirmed Problem Endogenous obesity (970066702) Endogenous obesity (E66.8) Active confirmed Problem Chronic renal failur e syndrome (68720127) Chronic kidney insufficiency (N18.9) Active confirmed Problem Dyspnea (722778963) Acute dyspne a (R06.00) Active confirmed Problem Double vision (38482956) Double vision (H53.2) Active confirmed Problem Acute diarrhea (886752975) Acute diarrhea (R19.7) Active confirmed Problem Idiopathic gout (17519196) Acute gouty arthritis (M10.00) Active confirmed Problem Iron deficiency anemia (98760126) Iron (Fe) deficiency anemia (D50.9) Active confirmed Problem Impingement syndrome of shoulder (765797027) Impingement syndrome of shoulder (M75.40) Active confirmed Problem C2 cervical frac ture (S12.100A) Active confirmed Problem Hyperparathyroidism due to renal insufficiency (12560898) Hyperparathyroidism due to renal insufficiency (N25.81) Active confirmed Problem Edema (474133182) Bilateral leg edema (R60.0) Active confirmed Problem Arthritis of lumbosacral spine (disorder) (798029783) Lumbar and sacral osteoarthritis (M47.817) Active confirmed Problem Abnormal renal function (22126854) Abnormal renal function (N28.9) Active confirmed Problem Chronic heart failur e (50495907) Chronic heart failure (I50.9) Active confirmed Problem Acute arthritis (62024629) Acute arthritis (M19.90) Active confirmed Problem 389259652 Port-a-cath in [place] (Z95.828) Active confirmed Problem Acute congestive heart failure (20956470) Acute CHF (I50.9) Active confirmed Problem Lumbosacral radiculopathy (2219082) Left lumbosacral radiculopathy (M54.17) Active confirmed Problem Gastroesophageal reflux disease (disorder) (085110450) Chronic GERD (K21.9) Active confirmed Problem Cardiomegaly (9112536) Atrial enlargement, left (I51.7) Active confirmed Problem Pulmonary valve insufficiency (84802458) Pulmonary valve insufficiency (I37.1) Active confirmed Problem Transient ischemic attack (disorder) (184955688) Brain TIA (G45.9) Active confirmed Problem Vitamin D deficiency (13990693) Unspecified vitamin D deficiency (E55.9) Active confirmed Problem Essential hypertension (50088372) BP (high blood pressure) (I10) Active confirmed Problem Bad memory (008904193) Bad memory (R41.3) Active confirmed Problem Abnormal swallowing (91196442) Abnormal swallowing (R13.10) Active confirmed Problem Chronic kidney disease stage 2 (998873610) Chronic kidney disease (CKD), stage 2 (mild) (N18.2) Active confirmed Problem Simple goiter (186482242) Nontoxic (diffuse) goiter (E04.0) Active confirmed Problem CHF (congestive heart failure), NYHA class I, acute, combined (I50.41) Active confirmed Problem Closed fracture of trochanter of femur (722573848) Closed displaced fracture of greater trochanter of left femur, initial encounter (S72.112A) Active confirmed Problem Spinal stenosis of lumbar region (38571367) Spinal stenosis at L4-L5 level (M48.061) Active confirmed Problem Neurogenic claudication (930261934) Lumbar stenosis with neurogenic claudication (M48.062) Active confirmed Problem Clostridium difficil e colitis (disorder) (622588694) C. difficile colitis (A04.72) Active confirmed Problem Clostridium difficil e colitis (889845552) Clostridium difficile colitis (A04.72) Active confirmed Problem Pulmonary hypertension (disorder) (61390982) Chronic pulmonary hypertension (I27.20) Active confirmed Problem Cervical arthritis (137501364) Cervical arthritis (M47.812) Active confirmed Problem Acute repetitive seizure (108740003398580) Acute repetitive seizure (G40.909) Active confirmed Problem Chronic kidney disease stage 3 (disorder) (660429640) Chronic kidney disease, stage 3 unspecified (N18.30) Active confirmed Problem Acute worsening of stage 3 chronic kidney disease (N18.30) Active confirmed Problem Headache above t he eye region (R51.9) Active confirmed Problem Disease caused by Severe acute respiratory syndrome coronavirus 2 (disorder) (860599285) COVID (U07.1) Active confirmed Vital Signs Blood pressure diastolic 82 mm Hg 11/20/2024 Height 62 in 11/20/2024 Blood pressure systolic 142 mm Hg 11/20/2024 Weight 216 lbs 11/20/2024 BMI 39.5 kg/m2 11/20/2024 Encounters Encounter Location Date Provider Diagnosis [facility] [address] [place] [address] 01/21/2025 Vinay Godinez [facility] [address] [place] [address] 01/24/2025 Vinay Godinez Cellulitis L03.90 [facility] [address] [place] [address] 01/27/2025 Vinay Duvaly [facility] [address] [place] [address] 01/30/2025 Vinay Godinez Right sided abdomina l pain R10.9 [facility] [address] [place] [address] 12/03/2024 Vinay Hoy Right sided abdomina l pain R10.9 [facility] [address] [place] [address] 12/20/2024 Vinay Hoy Cellulitis L03.90 [facility] [address] [place] [address] 12/31/2024 Vinay Hoy Right sided abdomina l pain R10.9 [facility] [address] [place] [address] 01/02/2025 Vinay Hoy [facility] [address] [place] [address] 01/02/2025 Vinay Hoy [facility] [address] [place] [address] 01/20/2025 Vinay Hoy Low back pain at multiple sites M54.50 [facility] [address] [place] [address] 09/27/2024 Vinay Hoy [facility] [address] [place] [address] 10/03/2024 Vinay Hoy Right sided abdomina l pain R10.9 [facility] [address] [place] [address] 10/22/2024 Vinay Hoy Edema R60.9 [facility] [address] [place] [address] 11/04/2024 Vinay Hoy Right sided abdomina l pain R10.9 [facility] [address] [place] [address] 11/22/2024 Vinay Hoy [facility] [address] [place] [address] 11/26/2024 Vinay Hoy [facility] [address] [place] [address] 08/21/2024 Vinay Hoy C2 cervical fracture S12.100A and Lumbar radiculopathy M54.16 [facility] [address] [facility] [place] [address] 09/04/2024 Vinay Hoy Right sided abdomina l pain R10.9 [facility] [address] [facility] [place] [address] 09/05/2024 Vinay Hoy [facility] [address] [facility] [place] [address] 09/05/2024 Vinay Hoy [facility] [address] [facility] [place] [address] 09/11/2024 Vinay Hoy Right sided abdomina l pain R10.9 ; Hand pain, left M79.642 ; Hyperglycemia R73.9 ; Edema R60.9 and Elevated creatine kinase R74.8 [facility] [address] [facility] [place] [address] 09/18/2024 Vinay Hoy [facility] [address] [place] [address] 07/05/2024 Vinay Hoy Sebaceous cyst L72.3 [facility] [address] [place] [address] 07/18/2024 Vinay Hoy Anxiety F41.9 [facility] [address] [place] [address] 07/22/2024 Vinay Hoy Sebaceous cyst L72.3 and Lumbar radiculopathy M54.16 [facility] [address] [facility] [place] [address] 07/22/2024 Vinay Hoy [facility] [address] [facility] [place] [address] 08/06/2024 Vinay Hoy [facility] [address] [place] [address] 08/15/2024 Vinay Hoy [facility] [address] [facility] [place] [address] 05/20/2024 Vinay Hoy Lumbar radiculopathy M54.16 [place] [address] [place] [address] 05/20/2024 Vinay Hoy [facility] [address] [place] [address] 05/30/2024 Vinay Hoy [facility] [address] [place] [address] 06/06/2024 Vinay Hoy Sebaceous cyst L72.3 [facility] [address] [place] [address] 06/13/2024 Vinay Hoy [facility] [address] [place] [address] 07/02/2024 Vinay Hoy Fluid overload E87.7 0 ; Benign essential HTN I10 and Hyponatremia E87.1 [facility] [address] [place] [address] 04/05/2024 Vinay Hoy [facility] [address] [place] [address] 04/09/2024 Vinay Hoy [facility] [address] [place] [address] 04/10/2024 Vinay Hoy Sebaceous cyst L72.3 [facility] [address] [place] [address] 04/16/2024 Vinay Hoy [facility] [address] [place] [address] 04/22/2024 Sheridan Love Lumbar radiculopathy M54.16 [facility] [address] [place] [address] 05/09/2024 Vinay Hoy Sebaceous cyst L72.3 [facility] [address] [place] [address] 03/18/2024 Vinay Hoy Benign essential HTN I10 [facility] [address] [place] [address] 03/18/2024 Vinay Hoy [facility] [address] [facility] [place] [address] 03/18/2024 Vinay Hoy Benign essential HTN I10 [facility] [address] [facility] [place] [address] 03/18/2024 Vinay Duvaly [facility] [address] [facility] [place] [address] 03/27/2024 Vinay Mukundy [facility] [address] [facility] [place] [address] 04/01/2024 Vinay Hoy Supraspinatus tendon tear S46.819A [facility] [address] [place] [address] 02/14/2024 Vinay Mukundy [facility] [address] [facility] [place] [address] 02/15/2024 Vinay Duvaly [facility] [address] [place] [address] 02/21/2024 Vinay Hoy Benign essential HTN I10 [facility] [address] [facility] [place] [address] 03/01/2024 Vinay Hoy [facility] [address] [place] [address] 03/12/2024 Vinay Hoy Sebaceous cyst L72.3 [facility] [address] [facility] [place] [address] 03/15/2024 Vinay Hoy Shoulder pain, left M25.512 [facility] Oncology [address] [place] [facility] [place] [address] 12/24/2024 Ny Butch [facility] [address] [facility] [place] [address] 08/06/2024 Vinay Hoy Acute CHF I50.9 ; Chronic heart failure I50.9 ; History of falling Z91.81 and Right sided abdominal pain R10.9 [facility] [address] [facility] [place] [address] 09/20/2024 Vinay Hoy Edema R60.9 ; Benign essential HTN I10 ; Hyponatremia E87.1 and CHF (congestive heart failure), NYHA class I, acute, combined I50.41 [facility] [address] [place] [address] 11/13/2024 Vinay Hoy Acute repetitive seizure G40.909 ; Major depressive disorder, recurrent, moderate F33.1 and Cellulitis L03.90 [facility] [address] [place] [address] 02/22/2024 Vinay Hoy Edema R60.9 ; Benign essential HTN I10 ; Hyponatremia E87.1 ; Lumbar spondylolysis M43.06 and Migraine G43.909 [facility] [address] [place] [address] 03/08/2024 Vinay Hoy Shoulder pain, left M25.512 [facility] [address] [place] [address] 03/29/2024 Vinay Hoy Fluid overload E87.7 0 [facility] [address] [place] [address] 04/05/2024 Vinay Hoy Edema R60.9 ; Benign essential HTN I10 ; Acute CHF I50.9 ; Left lumbosacral radiculopathy M54.17 ; Cervical arthritis M47.812 and Hyperglycemia R73.9 [facility] [address] [place] [address] 07/31/2024 Vinay Hoy Hand pain, left M79.642 [facility] [address] [place] [address] 11/20/2024 Vinay Hoy Cellulitis L03.90 an d Acute repetitive seizure G40.909 [facility] [address] [place] [address] 11/22/2024 Vinay Hoy Cellulitis L03.90 [facility] On[facility] [address] [place] [address] 10/15/2024 [facility] On[facility] [address] [place] [address] 04/16/2024 [facility] [address] [place] [facility] [place] [place] [address] 07/02/2024 [facility] [address] [place] [facility] [place] [place] [place] [address] 05/14/2024 [facility] [address] [place] [facility] [place] [place] [address] 07/16/2024 [facility] [address] [facility] [place] [address] [facility] [address] [place] [facility] [place] [address] 10/29/2024 [facility] [address] [place] [facility] [place] [place] [address] 11/12/2024 [facility] [address] [place] [facility] [place] [place] [address] 11/26/2024 [facility] [address] [place] [facility] [place] [place] [address] 12/10/2024 [facility] [address] [place] [facility] [place] [place] [address] 12/24/2024 [facility] [address] [place] [facility] [place] [place] [address] 02/04/2025 Nykhushboo Rae Assessments Encounter Date Diagnosis (ICD Code) Assessment [...] - M54.50) 01/24/2025 Cellulitis (ICD-10 - L03.90) 01/30/2025 Right sided abdominal pain (ICD-10 - R10.9) 09/04/2024 Right sided abdominal pain (ICD-10 - R10.9) 09/11/2024 Right sided abdominal pain (ICD-10 - R10.9) 03/08/2024 Shoulder pain, left (ICD-10 - M25.512) [...] Acute CHF (ICD-10 - I50.9) sed above 09/11/2024 Hand pain, left (ICD-10 - M79.642) 07/02/2024 Hyponatremia (ICD-10 - E87.1) 08/21/2024 Lumbar radiculopathy (ICD-10 - M54.16) 07/22/2024 Lumbar radiculopathy (ICD-10 - M54.16) 09/11/2024 Hyperglycemia (ICD-10 - R73.9) 04/05/2024 Left lumbosacral radiculopathy (ICD-10 - M54.17) [...] CSPINE WO CON 01/14/2024 US ARTERY LEG GUMRAO 12/06/2022 VC VENOUS REFLUX GUMARO LMT 12/06/2022 XR HIP RT 2 3V W PELVIS 06/09/2023 XR KNEE LT 1_2 V 09/15/2023 XR RIBS RT NO CH 2V 03/22/2023 XR SHOULDER LT 2V or > 03/08/2024 XR TIB_FIB LT 2V 09/15/2023 XR thoracic spine 3V 03/22/2023 MRI Arthrogram LT Shoulder 03/15/2024 Next Appt Details Provider Name:Ny Rae , 02/18/2025 11:00:00 AM, [address] [place], [address], Provider Name:Ny Rae , 02/18/2025 11:15:00 AM, [address] [place], [address], Insurance Providers Payer Name Payer Address Payer Phone Subscriber Number Group Number Insured Name Patient Relationship to Insured Coverage Start Date Coverage End Date F [facility] [employer] [address] [place] [address] [id number] Jose Moser Self - patient is the insured 4 [place] 2ND INS [address] [facility] [place] [id number] Jose Moser Self - patient is the [...] regurgitation I34.0 epilepsy Surgical History Surgery Date(Month/Year) knee replacement rotator cuff Right Heart Cath 11/30/22 cervical one to cervical two fusion gastric bypass port gallbladder back surgery port placement 10/12/2022 Hospitalization History Reason Date(Month/Year) fluid overload 08/2024 fluid overload 04/18 Fluid Overload 12/2023 fluid overload 10/17 e colie 01/2023
--- OUTSIDE RECORDS SUMMARY | 2025-02-10 11:15 | XMS_ITS | CCD ---
Author Organization [facility]iniSym[facility] Care Team Providers Care Order Runner Name Role Phone NIRMAL LEWIS Admitting Unavailable [...] Primary Care Provider WALLY Helm Emergency Provider [phone] ROBERT JOHNSTON Attending Unavailable ROBERT JOHNSTON Admitting [...] HOY ., DR BARBOUR Consulting Unavailable VITALEAPRIL ROGERS Consulting Unavailable HOY ., DR BARBOUR Consulting [...] Unavailable MD Angle Santana Primary Care Provider [phone] MD Beatriz Oh Admit Provider DO Jim Randhawa Attending Provider [phone] MD [place] Other Provider Jim Randhawa Attending Unavailable Beatriz Oh Admitting Unavailable [place] Consulting Unavailable Angle Santana Primary Care Unavailable Favian Helm Admitting Unavailable Favian Helm Attending Unavailable Angle Santana Primary Care Unavailable ANGLE SANTANA Referring Unavailable ANGLE SANTANA Primary Care Unavailable Angle Santana Primary Care Physician Migel MCKINNEY Attending Unavailable Angle Santana Referring Unavailable LORAMSES, MERE Admitting Unavailable LORAMSES, MERE Attending Unavailable BALJINDER HUGHES Referring Unavailable ARMAND, ARMAND MOON Consulting Unavailable ANGLE SANTANA M Primary Care Unavailable AFANEH, AMER JEISON-HAFIZ Admitting Unavail able AFANEH, AMER JEISON-HAFIZ Attending Unavail able ARMAND, ARMAND MOON Consulting Unavailable ESTHER, ANGLE M Primary Care Unavailable BUNNY PARIKH Consulting Unavailable YASMIN, JENNY S Consulting Unavailable ALIPNIEDAL Consulting Unavailable ZAIDAT, OSAMA O Consulting Unavailable RADHA WADE J Consulting Unavailable LUCIANO WEISS Consulting Unavailable THUMMALAPADAPHNE KOCHHEETH Consulting Unavaila ble JULIO CÉSARUKASAUL Castillo, BENJIE Referring Unavailable ESTHER, ANGLE M Primary Care Unavailable MOUKARBSUE Castillo, BENJIE Referring Unavailable ESTHER, ANGLE M Primary Care Unavailable MOUKASAUL Castillo, BENJIE Referring Unavailable ESTHER, ANGLE M Primary Care Unavailable MOUKARBEL Anna, BENJIE Referring Unavailable ESTHER, ANGLE M Primary Care Unavailable BENJIE DANG Attending Unavailable MOUKARBSUE, BENJIE Attending Unavailable MOUKASAUL, BENJIE Attending Unavailable ELATTAR, OSAMA Attending Unavailable ELATTAR, OSAMA Referring Unavailable ELATTAR, OSAMA Referring Unavailable ELATTAR, OSAMA Referring Unavailable Luis ASCENCIO, Riki Timmons Attending Unavailable Luis ASCENCIO, Riki Timmons Attending Unavailable Angle Santana MD Primary Care Provider [phone] Raeann Kirkpatrick MD Attending Provider Allergies Allergy Classification Reported Allergen(s) Allergy Type Date of Onset Reaction(s) Facility (14 sources) Amoxicillin Drug Allergy 10-29-19 23 Unknown, Diarrhea [facility] (6 sources) Amoxicillin / Clavulanate; Translations: [amoxicillin-clavul anate] Drug Allergy Weal (disorder) [facility] (18 sources) Povidone-Iodine; Translations: [POVIDONE-IODINE] Drug Allergy 08-15-19 17 Eruption of skin (disorder) [facility] (9 sources) Sulfamethoxazole / Trimethoprim Drug Allergy Unknown [facility] Other (1 source) sulfaSALAzine Drug Allergy Unknown [facility] Other (8 sources) Amoxicillin / Clavulanate; Translations: [Augmentin] Drug Allergy 11-26-19 13 Unknown [facility] (1 source) Bumetanide Drug Allergy 03-22-20 16 [facility] (1 source) Cephalexin Drug Allergy 01-15-20 14 [facility] (2 sources) gabapentin; Translations: [GABAPENTIN] Drug Allergy 08-19-19 22 [facility] (4 sources) Povidone-Iodine; Translations: [Betadine] Drug Allergy 11-26-19 13 [facility] (1 source) pregabalin; Translations: [LYRICA] Drug Allergy 08-19-19 22 [facility] (11 sources) Sulfonamides (Antibiotic); Translations: [SULFA (SULFONAMIDE ANTIBIOTICS)] Drug allergy (disorder) 11-26-19 13 Rash [facility] (1 source) Sulfonamide Drug allergy Unknown [facility] Other (7 sources) Substance with sulfonamide structure and antibacterial mechanism of action (substance) Drug allergy Unknown [facility] Other (6 sources) Clavulanate; Translations: [clavulanic acid] Drug Allergy 10-29-19 23 Diarrhea [facility] (1 source) Ciprofloxacin Drug Allergy 05-26-20 20 [facility] (1 source) Amoxicillin Drug Allergy 04-04-20 23 [facility] (1 source) Povidone-Iodine Drug Allergy 04-04-20 23 [facility] (4 sources) Sulfamethoxazole Drug Allergy 04-04-20 23 Unknown Reaction [facility] (1 source) Sulfonamides (Antibiotic) Drug allergy (disorder) 04-04-20 23 [facility] (4 sources) Trimethoprim Drug Allergy 04-04-20 23 Unknown Reaction [facility] (3 sources) AMOXICILLIN-POT CLAVULANATE; Translations: [AMOXICILLIN-POT CLAVULANATE] Propensity to adverse reactions to drug (disorder) 06-13-20 [facility] (2 sources) Sulfonamides (Antibiotic); Translations: [sulfa drugs] Drug allergy Eruption of skin (disorder) [facility] [place] (1 source) carvedilol; Translations: [CARVEDILOL] Drug Allergy 12-21-19 [facility] (1 source) Cephalexin; Translations: [CEPHALEXIN] Drug Allergy 06-13-20 14 [facility] (1 source) Ciprofloxacin; Translations: [CIPROFLOXACIN] Drug Allergy 10-11-19 [facility] (1 source) Iodine; Translations: [IODINE] Drug Allergy 11-28-19 [facility] (1 source) pregabalin; Translations: [PREGABALIN] Drug Allergy 10-11-19 [facility] (1 source) Sulfamethoxazole / Trimethoprim; Translations: [SULFAMETHOXAZOLE-T RIMETHOPRIM] Drug Allergy 11-28-19 [facility] Medications Current Medications Medication Drug Class(es) Dates Sig (Normalized) Sig (Original) acetaminophen 300 mg / butalbital 50 mg / caffeine 40 mg oral capsule (6 sources) Barbiturate, Central Nervous System Stimulant, Methylxanthine Start: 02-12-2024 take 1 capsule by mouth every four hours Fioricet oral capsule 1 cap(s), Oral, q4hr Migraine headache, Refill(s) 0 Start Date: 02/12/24 Status: Ordered Start: 10-28-2022 End: 06-30-2023 Mplcopiamg-Kimptnmiqajgi-Xun f 50-325-40 mg capsule Discontinued 1 CAP PO As Directed as needed for Migraine Headache October 28, 2022 12:00am June 30, 2023 1:27am 200 actuat albuterol 0.09 mg/actuat dry powder inhaler (8 sources) beta2-Adrenergic Agonist Start: 03-26-2024 Albut malik Sulfate 90 mcg/actuation aerosol powdr breath activated Active 2 INH INHALATION Every 6 hours as needed March 26, 2024 12:00am Complies with drug therapy Start: 10-28-2022 End: 06-30-2023 take 1 puff(s) by inhalation every six hours as needed Albuterol Sulfate 90 mcg/actuation Hfa Aerosol Inhaler Discontinued 1 PUFF INHALATION Q6H as needed for Shortness Of Breath October 28, 2022 12:00am June 30, 2023 1:25am albuterol 0.833 mg/ml / ipratropium bromide 0.167 mg/ml inhalation solution (8 sources) Anticholinergic, beta2-Adrenergic Agonist Start: 03-26-2024 Ipratropium-Albuterol 0.5 mg-3 mg(2.5 mg base)/3 mL solution for nebulization Active 3 ML INHALATION every 6 to 8 hours as needed March 26, 2024 12:00am Complies with drug therapy Start: 10-28-2022 End: 06-30-2023 take 1 mL by inhalation every six hours as needed Ipratropium-Albuterol 0.5 mg-3 mg(2.5 mg base)/3 mL Solution For Nebulization Discontinued 3 ML INHALATION Q6H as needed for Shortness Of Breath October 28, 2022 12:00am June 30, 2023 1:26am ALPRAZolam 0.5 mg oral tablet (19 sources) Benzodiazepine Start: 01-14-2025 take 1 tablet by mouth once daily at bedtime Alprazolam 0.5 mg tablet Active 0.5 MG PO Daily at bedtime January 14, 2025 11:09am Complies with drug therapy Start: 03-26-2024 End: 01-14-2025 take 1 tablet by mouth twice daily Alprazolam 0.5 mg tablet Discontinued 0.5 MG PO Twice daily March 26, 2024 12:00am January 14, 2025 11:14am Start: 02-12-2024 take 1 tablet by joseph twice daily as needed for anxiety alprazolam 0.5 mg Tab 0.5 mg = 1 tab(s), Oral, BID, PRN for anxiety, Refills(s) 0 Start Date: 02/12/24 Status: Ordered Start: 08-31-2018 End: 03-26-2024 take 2 tablets by mouth twice daily as needed for anxiety Alprazolam (Xanax) 0.25 mg Tablet Discontinued 0.5 MG PO Twice daily as needed for Anxiety August 31, 2018 1:00am March 26, 2024 [...] Active amitriptyline hydrochloride 150 mg oral tablet (20 sources) Tricyclic Antidepressant Start: 01-14-2025 take 2 tablets by mouth once daily at bedtime Amitriptyline 150 mg tablet Active 300 MG PO Daily at bedtime January 14, 2025 11:09am Complies with drug therapy Start: 10-02-2024 End: 01-14-2025 take 1 tablet by mouth twice daily Amitriptyline 150 mg tablet Discontinued 150 MG PO Twice daily October 02, 2024 2:48pm January 14, 2025 11:14am Start: 10-28-2022 End: 10-02-2024 take 2 tablets by mouth at bedtime Amitriptyline 150 mg tablet Discontinued 300 MG PO Bedtime October 28, 2022 12:00am October 02, 2024 2:58pm Start: 10-28-2022 take 300 mg by mouth at bedtim e Amitriptyline Active 300 MG PO Bedtime October 28, 2022 12:00am Start: 10-28-2022 take 150 mg by mouth once montrell y Amitriptyline Active 150 MG PO Daily October 28, 2022 12:00am Start: 08-31-2018 End: 09-04-2018 take 2 tablets by mouth once daily Amitriptyline 100 mg Tablet Discontinued 200 MG PO Daily August 31, 2018 1:00am September 04, 2018 7:59am Start: 08-31-2018 End: 09-04-2018 take 200 mg by mouth once daily Amitriptyline Disconti nued 200 MG PO Daily August 31, 2018 1:00am September 04, 2018 7:59am atorvastatin 40 mg oral tablet (1 source) HMG-CoA Reductase Inhibitor Start: 02-12-2024 take 1 tablet by mouth once daily atorvastatin 40 mg Tab 40 mg = 1 tab(s), Oral, Daily, Refills(s) 0 Start Date: 02/12/24 Status: Ordered azelastine hydrochloride 0.5 mg/ml ophthalmic solution (3 sources) Histamine-1 Receptor Antagonist Start: 01-14-2025 take 1 drop(s) into the eye(s) once daily Azelastine 0.05 % drops Active 1 DROPS EYE-BOTH Daily January 14, 2025 11:10am Complies with drug therapy Start: 10-02-2024 End: 01-14-2025 take 1 drop(s) into the eye(s) twice daily Azelastine 0.05 % drops Discontinued 1 DROPS EYE-BOTH Twice daily October 02, 2024 12:00am January 14, 2025 11:14am Start: 10-02-2024 take 1 drop(s) into the eye(s) twice daily Azelastine 0.05 % drops Active 1 DROPS EYE-BOTH Twice daily October 02, 2024 12:00am B Complex (Folic Acid) - (9 sources) B Complex (Folic Acid) - as directed Orally ONCE A DAY Active butorphanol tartrate 1 mg/actuat metered dose nasal spray (10 sources) Opioid Agonist/Antagonist Start: 02-12-2024 butorphanol 10 mg/mL Nasal [place] = 1 spray(s), Nasal, Daily, PRN as needed for pain, Refills(s) 0 Start Date: 02/12/24 Status: Ordered Start: 10-28-2022 End: 06-30-2023 Butorphanol 10 mg/mL spray,n on-aerosol Active 1 SPRAY INTRANASAL Daily as needed for Migraine Headache June 30, 2023 1:00am Complies with drug therapy Start: 10-28-2022 End: 06-30-2023 Butorphanol Active 1 SPRAY I NTRANASAL Daily June 30, 2023 1:00am calcitriol 0.0005 mg oral capsule (2 sources) Vitamin D3 Analog Start: 10-02-2024 take 1 capsule by mouth once daily Calcitriol 0.5 mcg capsule Active 0.5 MCG PO Daily 90 October 02, 2024 12:00am administer after dialysis on dialysis days Complies with drug therapy calcium carbonate 500 mg chewable tablet (9 sources) take 2 tablets by mouth twice daily as needed Calcium Carbonate Antacid 500 MG 2 tablets Orally Twice a day PRN Active cetirizine hydrochloride 10 mg oral tablet (1 source) Histamine-1 Receptor Antagonist take 1 tablet by mouth every twenty-four hours Cetirizine HCl 10 MG 1 tablet Orally Once a day Active cholecalciferol 1.25 mg oral capsule (11 sources) Vitamin D Start: 10-02-2024 take 1 capsule by mouth every week Cholecalciferol (Vitamin D3) 1,250 mcg (50,000 unit) capsule Active 1250 MCG PO every week October 02, 2024 12:00am Complies with drug therapy take 1 capsule by mouth once hima ly Cholecalciferol 25 MCG (1000 UT) 1 capsule Orally Once a day Active take 1 capsule by mouth once hima ly Cholecalciferol 125 MCG (5000 UT) 1 capsule Orally Once a day Active 24 hr desvenlafaxine succinate 50 mg extended release oral tablet (10 sources) Serotonin and Norepinephrine Reuptake Inhibitor Start: 02-12-2024 take 1 tablet by mouth once daily desvenlafaxine 50 mg Tab- 50 mg = 1 tab(s), Oral, Daily, Refills(s) 0 Start Date: 02/12/24 Status: Ordered Start: 06-30-2023 End: 01-14-2025 take 1 tablet by mouth once daily Desvenlafaxine Succinate 100 mg tablet extended release 24 hr Discontinued 100 MG PO Daily June 30, 2023 1:00am January 14, 2025 11:11am Start: 10-28-2022 End: 06-30-2023 take 1 tablet by mouth once daily Desvenlafaxine Succinate 50 mg tablet extended release 24 hr Discontinued 50 MG PO Daily October 28, 2022 12:00am June 30, 2023 1:30am docusate sodium 250 mg oral capsule (1 source) take 1 capsule by mouth once daily as needed Docusate Sodium 250 MG 1 capsule as needed Orally Once a day NEEDED Active escitalopram 20 mg oral tablet (6 sources) Serotonin Reuptake Inhibitor Start: 02-12-2024 take 1 tablet by mouth once daily Lexapro 20 mg Tab 20 mg = 1 tab(s), Oral, Daily, Refills(s) 0 Start Date: 02/12/24 Status: Ordered Start: 10-28-2022 End: 06-30-2023 take 1 tablet by mouth once daily Escitalopram Oxalate 20 mg tablet Discontinued 20 MG PO Daily October 28, 2022 12:00am June 30, 2023 1:27am 72 hr fentaNYL 0.1 mg/hr transdermal system (20 sources) Opioid Agonist Start: 10-28-2022 Fentanyl 100 m cg/hr patch 72 hour Active 1 PATCH TRANSDERML Q72H October 28, 2022 12:00am Complies with drug therapy Start: 09-16-2020 Duragesic-100 transdermal film, extended release = 1 patch(es), Topical, q72hr, EA, Refills(s) 0 Start Date: 09/16/20 Status: Ordered Start: 08-31-2018 End: 10-28-2022 Fentanyl 50 mcg/hr Patch 72 Hour Discontinued 1 PATCH TRANSDERML Q72H August 31, 2018 1:00am October 28, 2022 7:54pm fentaNYL 100 MCG /HR 1 patch to skin Transdermal EVERY 72 HOURS Active fentaNYL 50 MCG/ HR 1 patch to skin Transdermal CHANGE EVERY 72 HOURS Active ferrous sulfate 325 mg oral tablet (10 sources) Start: 01-14-2025 take 1 tablet by mouth once daily Ferrous Sulfate (Ferosul) 325 mg (65 mg iron) tablet Active 325 MG PO Daily January 14, 2025 12:00am Complies with drug therapy Start: 07-03-2023 End: 03-26-2024 take 1 tablet by mouth once daily Ferrous Sulfate 324 mg (65 mg iron) Tablet,Delayed Release (Dr/Ec) Discontinued 324 MG PO Daily July 03, 2023 1:00am March 26, 2024 12:10pm Start: 08-31-2018 End: 06-30-2023 take 1 tablet by mouth once daily Ferrous Sulfate 325 mg (65 mg iron) Tablet Discontinued 325 MG PO Daily August 31, 2018 1:00am June 30, 2023 1:30am fludrocortisone acetate 0.1 mg oral tablet (6 sources) take 2 tablets by mouth in the morning, then take 1 tablet by mouth twice daily in the evening Fludrocortisone Acetate 0.1 MG 2 tablets in am, 1 tablet in pm Orally twice a day Active 30 actuat fluticasone furoate 0.1 mg/actuat / vilanterol 0.025 mg/actuat dry powder inhaler (11 sources) Corticosteroid, beta2-Adrenergi c Agonist Start: 03-26-20 End: 07-22-20 25 Fluticasone Furoate-Vilanterol (Breo Ellipta) 100-25 mcg/dose blister with device Active 1 INH INHALATION Daily as needed January 14, 2025 11:11am Complies with drug therapy Start: 09-08-2020 take 1 puff(s) by in [...] the morning Orally Once a day Active levothyroxine sodium 0.1 mg oral tablet (20 sources) l-Thyroxine Star t: 050 11-12 take 1 tablet by mouth once daily Levothyroxine 100 mcg tablet Active 100 MCG PO Daily October 28, 2022 12:00am Complies with drug therapy Start: 09-08-2020 take 1 tablet by joseph th once daily levothyroxine 100 mcg (0.1 mg) Tab 100 mcg = 1 tab(s), Oral, Daily Start Date: 09/08/20 Status: Ordered Start: 08-31-2018 End: 10-28-2022 take 1 tablet by mouth once daily Levothyroxine (Synthroid) 88 mcg Tablet Discontinued 88 MCG PO Daily August 31, 2018 1:00am October 28, 2022 9:37pm linaclotide 0.29 mg oral capsule (18 sources) Guanylate Cyclase-C Agonist Start: 10-02-2024 End: 01-14-2025 take 1 capsule by mouth once daily as needed Linaclotide (Linzess) 290 mcg capsule Active 290 MCG PO Daily as needed January 14, 2025 11:12am Complies with drug therapy Start: 02-12-2024 take 1 capsule by [facility] once daily Linzess 290 mcg oral capsule 290 mcg = 1 cap(s), Oral, Daily, Refills(s) 0 Start Date: 02/12/24 Status: Ordered Start: 10-28-2022 End: 10-02-2024 Linaclotide (Linzess) 290 mc g capsule Discontinued 290 MCG PO Every 48 hours October 28, 2022 12:00am October 02, 2024 2:58pm Start: 10-28-2022 take 1 capsule by [facility] once daily Linaclotide (Linzess) 290 mcg capsule Active 290 MCG PO Daily October 28, 2022 12:00am Linzess 290 290m cg 1 PO every other day Active Linzess 290 290m cg 1 PO Every AM Active liothyronine sodium 0.025 mg oral tablet (20 sources) l-Triiodothyronine Start: 02-12-2024 take 1 tablet by mouth once daily Cytomel 25 mcg Tab 25 mcg = 1 tab(s), Oral, Daily, Refills(s) 0 Start Date: 02/12/24 Status: Ordered Start: 10-28-2022 End: 03-26-2024 take 1 tablet by mouth once daily Liothyronine 25 mcg Tablet Discontinued 25 MCG PO Daily June 30, 2023 1:00am March 26, 2024 12:09pm take 1 tablet by [facility] every twenty-four hours Liothyronine Sodium 25 MCG 1 tablet on an empty stomach Orally Once a day Active loratadine 10 mg oral tablet (7 sources) Start: 06-29-2023 take 1 tablet by mouth once daily as needed Loratadine (Claritin) 10 mg Tablet Active 10 MG PO Daily as needed for Allergy Symptoms June 29, 2023 1:00am Complies with drug therapy Multi For Her - (9 sources) Multi For Her - as directed Orally Active ondansetron 4 mg disintegrating oral tablet (15 sources) Serotonin-3 Receptor Antagonist Start: 02-12-2024 take 1 tablet by mouth every six hours as needed for nausea ondansetron 4 mg Dis Tab 4 mg = 1 tab(s), Oral, q6hr, PRN Nausea/Vomiting, Refills(s) 0 Start Date: 02/12/24 Status: Ordered Start: 08-31-2018 Ondansetron Hc l (Zofran) 4 mg Tablet Active 4 MG PO every 6 to 8 hours as needed for Nausea And Vomiting August 31, 2018 1:00am Complies with drug therapy take 1 tablet by joseph once daily as needed Ondansetron 4 MG 1 tablet on the tongue and allow to dissolve Orally Once a day PRN Active primidone 50 mg oral tablet (20 sources) Anti-epileptic Agent Start: 03-26-2024 take 150 mg by mouth at bedtime Primidone Active 150 MG PO Bedtime March 26, 2024 12:08pm Start: 02-12-2024 take 3 tablets by mo [facility] once daily primidone 50 mg Tab 150 mg = 3 tab(s), Oral, Daily, Refills(s) 0 Start Date: 02/12/24 Status: Ordered Start: 06-29-2023 End: 03-26-2024 take 1 tablet by mouth at bedtime Primidone 50 mg tablet Active 150 MG PO Bedtime March 26, 2024 12:08pm Complies with drug therapy Start: 06-29-2023 End: 03-26-2024 take 100 mg by mouth at bedtime Primidone Discontinued 100 MG PO Bedtime June 29, 2023 1:00am March 26, 2024 12:11pm Start: 08-31-2018 End: 09-04-2018 take 1 tablet by mouth twice daily Primidone 50 mg Tablet Discontinued 100 MG PO Twice daily August 31, 2018 1:00am September 04, 2018 7:59am Start: 08-31-2018 End: 09-04-2018 take 100 mg by mouth twice daily Primidone Discontinued 100 MG PO Twice daily August 31, 2018 1:00am September 04, 2018 7:59am take 2 tablets by mo ut every twenty-four hours Primidone 50 MG 2 [...] mg / valsartan 51 mg oral tablet (20 sources) Angiotensin 2 Receptor Catrachita Start: take 1 tablet by mouth twice daily Sacubitril-Valsartan (Entresto) 49-51 mg tablet Active 1 TAB PO Twice daily October 02, 2024 12:00am Complies with drug therapy Start: 06-29-2023 End: 03-26-2024 take 1 tablet by mouth twice daily Sacubitril-Valsartan (Entresto) 97-103 mg tablet Discontinued 1 TAB PO Twice daily June 29, 2023 1:00am March 26, 2024 12:10pm On Hold: Resume when kidney function has returned to baseline per nephrology Start: 10-28-2022 End: 06-29-2023 take 1 tablet by mouth twice daily Sacubitril-Valsartan (Entresto) 49-51 mg tablet Discontinued 1 TAB PO Twice daily October 28, 2022 12:00am June 30, 2023 12:34am take 3 tablets by mo ut twice daily Sacubitril-Valsartan 97-103 MG 3 tablet Orally Twice a day Active take 3 tablets by mo uth twice daily Sacubitril-Valsartan 24-26 MG 3 tablet Orally Twice a day Active tiZANidine 4 mg oral capsule (17 sources) Central alpha-2 Adrenergic Agonist Start: 10-02-2024 take 1 capsule by mouth twice daily as needed Tizanidine 4 mg capsule Active 4 MG PO Twice daily as needed October 02, 2024 12:00am Complies with drug therapy Start: 09-08-2020 take 2 tablets by mo uth every eight hours tiZANidine 4 mg Tab 8 mg = 2 tab(s), Oral, q8hr Start Date: 09/08/20 Status: Ordered Start: 08-31-2018 End: 03-26-2024 take 1 capsule by mouth three times daily as needed Tizanidine 4 mg Capsule Discontinued 4 MG PO Three times daily as needed for Muscle Spasticity August 31, 2018 1:00am March 26, 2024 12:10pm Start: 08-31-2018 Tizanidine Act ankur 4 MG PO every 6 to 8 hours August 31, 2018 1:00am take 1 tablet by joseph th every six hours tiZANidine HCl 4 MG 1 tablet as needed Orally four times a day Active vitamin b12 1 mg/ml injectable solution (3 sources) Vitamin B12 Start: 10-02-2024 inject 100 ug by subcutaneous injection every month Cyanocobalamin (Vitamin B-12) 1,000 mcg/mL kit Active 100 MCG SUBCUT every month October 02, 2024 12:00am Complies with drug therapy Start: 02-12-2024 inject 1000 ug by in tramuscular injection every month cyanocobalamin 1000 mcg/mL Inj 1,000 mcg, IntraMuscular, qMonth, Refills(s) 0 Start Date: 02/12/24 Status: Ordered vitamin e 180 mg oral capsule (1 source) Start: 01-14-2025 take 1 capsule by mouth once daily Vitamin E (Dl, Acetate) 180 mg (400 unit) capsule Active 180 MG PO Daily January 14, 2025 12:00am Complies with drug therapy Completed/Discontinued Medications Medication Drug Class(es) Dates Sig (Normalized) Sig (Original) acetaminophen 325 mg / oxyCODONE hydrochloride 5 mg oral tablet (19 sources) Opioid Agonist Start: 06-29-2023 End: 06-30-2023 take 1 tablet by mouth twice daily as needed for pain Oxycodone-Acetamino phen (Percocet) 5-325 mg tablet Discontinued 1 TAB PO 2 times daily as needed for Pain June 29, 2023 1:00am June 30, 2023 11:41am Start: 08-31-2018 take 1 tablet by joseph th every six hours as needed for pain Oxycodone-Acetaminophen (Percocet) 5-325 mg Tablet Active 1 - 2 TAB PO Q6H as needed for Pain August 31, 2018 1:00am Complies with drug therapy Start: 08-31-2018 take 2 tablets by mo uth every four to six hours Oxycodone-Acetaminophen (Percocet) 5-325 mg Tablet Active 2 TAB PO EVERY 4-6 HOURS August 31, 2018 1:00am take 2 tablets by mo uth every four hours as needed oxyCODONE-Acetaminophen 5-325 MG 2 table t as needed Orally every 4 hrs PRN Active apixaban 5 mg oral tablet (4 sources) Factor Xa Inhibitor Start: 03-26-2024 End: 01-14-2025 take 1 tablet by mouth twice daily Apixaban (Eliquis) 5 mg tablet Discontinued 5 MG PO Twice daily March 26, 2024 12:00am January 14, 2025 11:10am Start: 02-12-2024 take 1 tablet by joseph twice daily Eliquis 5 mg oral tablet 5 mg = 1 tab(s), Oral, BID, Refills(s) 0 Start Date: 02/12/24 Status: Ordered ARIPiprazole 2 mg oral tablet (14 sources) Atypical Antipsychotic Start: 10-28-2022 End: 10-02-2024 take 1 tablet by mouth once daily Aripiprazole 2 mg tablet Discontinued 2 MG PO Daily October 28, 2022 12:00am October 02, 2024 2:49pm aspirin 81 mg delayed release oral tablet (3 sources) Platelet Aggregation Inhibitor, Nonsteroidal Anti-inflammatory Drug Start: 10-02-2024 End: 01-14-2025 take 1 tablet by mouth once daily Aspirin (Adult Aspirin Regimen) 81 mg tablet,delayed release (DR/EC) Discontinued 81 MG PO Daily October 02, 2024 12:00am January 14, 2025 11:10am Start: 02-12-2024 aspirin 81 mg Chew Tab 81 mg = 1 tab(s), Chewed, Daily, Refills(s) 0 Start Date: 02/12/24 Status: Ordered bumetanide 1 mg oral tablet (20 sources) Loop Diuretic Start: 10-02-2024 End: 10-02-2024 take 1 tablet by mouth twice daily Bumetanide 1 mg tablet Discontinued 2 MG PO Twice daily October 02, 2024 2:50pm October 02, 2024 3:17pm Start: 03-26-2024 End: 10-02-2024 take 1 tablet by mouth three times daily as needed Bumetanide 1 mg tablet Discontinued 2 MG PO Three times daily as needed March 26, 2024 12:03pm October 02, 2024 2:58pm Start: 03-26-2024 take 2 mg by mouth t hree times daily Bumetanide Active 2 MG PO Three times daily March 26, 2024 12:03pm Start: 02-12-2024 take 1 tablet by joseph th twice daily bumetanide 2 mg Tab 2 mg = 1 tab(s), Oral, BID, Refills(s) 0 Start Date: 02/12/24 Status: Ordered Start: 07-03-2023 End: 03-26-2024 take 1 tablet by mouth twice daily Bumetanide 1 mg tablet Discontinued 2 MG PO Twice daily 60 July 03, 2023 2:00pm March 26, 2024 12:11pm Take twice daily Start: 07-03-2023 End: 07-03-2023 take 6 mg by mouth once daily as needed Bumetanide 1 mg tablet Discontinued 2 MG PO Twice daily 60 July 03, 2023 2:00pm July 03, 2023 1:50pm MAY TAKE UP TO 6 MG DAILY PRN Start: 07-03-2023 End: 07-03-2023 take 6 mg by mouth once daily as needed Bumetanide 1 mg tablet Discontinued 2 MG PO Twice daily 60 July 03, 2023 2:00pm July 03, 2023 1:50pm MAY TAKE UP TO 6 MG DAILY PRN Start: 07-03-2023 End: 07-03-2023 take 6 mg [...] mg by mouth once daily as needed for edema Bumetanide 1 mg tablet Discontinued 2 MG PO Daily as needed for Edema October 28, 2022 12:00am July 03, 2023 [...] take 1 tablet by mouth once daily Bumetanide 2 mg Tablet Discontinued 2 MG PO Daily August 31, 2018 1:00am October 28, 2022 7:46pm take 1 tablet by joseph th every twenty-four hours Bumetanide 1 MG 1 tablet Orally Once a day Active 24 hr buPROPion hydrochloride 300 mg extended release oral tablet (5 sources) Aminoketone Start: 08-31-2018 End: 06-30-2023 take 1 tablet by mouth once daily in the morning Bupropion Hcl (Wellbutrin Xl) 300 mg Tablet Extended Release 24 Hr Discontinued 300 MG PO Every morning August 31, 2018 1:00am June 30, 2023 1:27am calcium acetate 667 mg oral capsule (9 sources) Start: 10-28-2022 End: 01-14-2025 take 1 capsule by mouth twice daily at mealtime Calcium Acetate(Phosphat Bind) 667 mg capsule Discontinued 667 MG PO Twice daily October 28, 2022 12:00am January 14, 2025 11:10am WITH MEALS take 2 tablets by mouth every ei ght hours Calcium Acetate (Phos Binder) 667 MG 2 tablets with meals Orally Three times a day Active take 2 capsules by m outh every twelve hours Calcium Acetate (Phos Binder) 667 MG 2 capsules with meals Orally TWICE A DAY Active diclofenac sodium 0.01 mg/mg topical gel (1 source) Nonsteroidal Anti-inflammatory Drug Start: 02-12-2024 Voltaren Gel 1% G el 2 gm, Topical, BID, Refill(s) 0 Start Date: 02/12/24 Status: Ordered dicyclomine hydrochloride 20 mg oral tablet (6 sources) Anticholinergic Start: 10-28-2022 End: 06-30-2023 Dicyclomine 20 mg Tablet Discontinued 20 MG PO As Directed as needed for Abdominal Pain October 28, 2022 12:00am June 30, 2023 1:30am [facility] daily as needed Dicyclomine HCl 20 MG 1 tablet Orally Fo ur times a day NEEDED Active doxepin hydrochloride 10 mg oral capsule (3 sources) Tricyclic Antidepressant Start: 10-02-2024 End: 01-14-2025 take 1 capsule by mouth once daily Doxepin 10 mg capsule Discontinued 10 MG PO Daily October 02, 2024 12:00am January 14, 2025 11:11am Start: 02-12-2024 take 1-2 capsules by mouth once daily at bedtime doxepin 10 mg Cap 1-2 caps, Oral, Once a day (at bedtime), Refills(s) 0 Start Date: 02/12/24 Status: Ordered DULoxetine 60 mg delayed release oral capsule (14 sources) Serotonin and Norepinephrine Reuptake Inhibitor Start: 10-28-2022 End: 03-26-2024 take 2 capsules by mouth once daily Duloxetine 60 mg capsule,delayed release(DR/EC) Discontinued 120 MG PO Daily October 28, 2022 12:00am March 26, 2024 12:05pm Start: 10-28-2022 End: 03-26-2024 take 120 mg by mouth once daily Duloxetine Discontinue d 120 MG PO Daily October 28, 2022 12:00am March 26, 2024 12:05pm take 1 capsule by [facility] every twelve hours DULoxetine HCl 60 MG 1 capsule Orally Twice a day Active fluconazole 100 mg oral tablet (5 sources) Azole Antifungal Start: 08-31-2018 End: 09-04-2018 take 1 tablet by mouth once daily Fluconazole 100 mg Tablet Discontinued 100 MG PO Daily August 31, 2018 1:00am September 04, 2018 7:59am gabapentin 100 mg oral capsule (4 sources) Anti-epileptic Agent Start: 06-29-2023 End: 03-26-2024 take 1 tablet by mouth three times daily Gabapentin 100 mg Tablet Discontinued 100 MG PO Three times daily June 29, 2023 1:00am March 26, 2024 12:05pm hydrALAZINE hydrochloride 25 mg oral tablet (19 sources) Arteriolar Vasodilator Start: 10-02-2024 End: 01-14-2025 take 1 tablet by mouth four times daily Hydralazine 25 mg tablet Discontinued 25 MG PO Four times daily October 02, 2024 12:00am January 14, 2025 11:12am Start: 09-08-2020 End: 06-30-2023 take 1 tablet by mouth three times daily Hydralazine 50 mg Tablet Discontinued 50 MG PO Three times daily October 28, 2022 12:00am June 30, 2023 1:22am hyoscyamine sulfate 0.125 mg oral tablet (12 sources) Start: 03-26-2024 End: 10-02-2024 take 1 tablet by mouth once daily as needed Hyoscyamine Sulfate 0.125 mg tablet Discontinued 0.125 MG PO Daily as needed March 26, 2024 12:00am October 02, 2024 2:55pm take 1 tablet by mouth every six hours Hyoscyamine Sulfate 0.125 MG 1 tablet on the tongue and allow to dissolve Orally Four times a day Active levoFLOXacin 750 mg oral tablet (5 sources) Quinolone Antimicrobial Start: 08-31-2018 End: 09-04-2018 take 1 tablet by mouth once daily Levofloxacin 750 mg Tablet Discontinued 750 MG PO Daily August 31, 2018 1:00am September 04, 2018 7:59am metoclopramide 5 mg oral tablet (13 sources) Dopamine-2 Receptor Antagonist Start: 08-31-2018 End: 06-30-2023 take 1 tablet by mouth once daily Metoclopramide Hcl (Reglan) 5 mg Tablet Discontinued 5 MG PO Daily August 31, 2018 1:00am June 30, 2023 1:26am take 1 tablet by mouth every six hours Metoclopramide HCl 10 MG 1 tablet before meals Orally Four times a day Active metoprolol tartrate 25 mg oral tablet (14 sources) beta-Adrenergic Catrachita Start: 08-31-2018 End: 03-26-2024 take 1 tablet by mouth twice daily Metoprolol Tartrate 25 mg Tablet Discontinued 25 MG PO Twice daily August 31, 2018 1:00am March 26, 2024 12:10pm Start: 08-31-2018 take 50 mg by mouth twice montrell y Metoprolol Tartrate Active 50 MG PO Twice daily August 31, 2018 1:00am take 1 tablet by joseph every twelve hours Metoprolol Tartrate 50 MG 1 tablet with food Orally Twice a day Not-Taking/PRN Xk-Xcxwxwm-Gdy-Iron Fm-Fa-Vitk (Multi For Her) 18 mg iron-600 mcg-80 mcg Tablet (5 sources) Start: 08-31-2018 End: 06-30-2023 take 1 tablet by mouth once daily Hf-Inpbrdr-Ybe-Iron Fm-Fa-Vitk (Multi For Her) 18 mg iron-600 mcg-80 mcg Tablet Discontinued 1 TAB PO Daily August 31, 2018 1:00am June 30, 2023 1:26am Start: 08-31-2018 End: 06-30-2023 take 1 tablet by mouth once daily Dt-Cakvmww-Yry-Iron Fm-Fa-Vitk (Multi For Her) 18 mg iron-600 mcg-80 mcg Tablet Discontinued 1 TAB PO Daily August 31, 2018 12:00am June 30, 2023 12:26am Start: 08-31-2018 take 1 tablet by joseph once daily Oe-Zjpsyle-Npq-Iron Fm-Fa-Vitk (Multi For Her) 18 mg iron-600 mcg-80 mcg Tablet Active 1 TAB PO Daily August 31, 2018 1:00am pantoprazole 40 mg delayed release oral tablet (20 sources) Proton Pump Inhibitor Start: 10-02-2024 End: 01-14-2025 take 1 tablet by mouth once daily Pantoprazole 40 mg tablet,delayed release (DR/EC) Discontinued 40 MG PO Daily October 02, 2024 12:00am January 14, 2025 11:13am Start: 02-12-2024 take 1 tablet by joseph once daily Protonix 40 mg Tab-DR 40 [...] MG PO Daily August 31, 2018 1:00am potassium chloride 10 meq extended release oral capsule (9 sources) Start: 08-31-2018 End: 06-30-2023 take 1 capsule by mouth once daily Potassium Chloride 10 mEq Capsule, Extended Release Discontinued 10 MEQ PO Daily August 31, 2018 1:00am June 30, 2023 1:30am take 1 tablet by joseph th every twenty-four hours Klor-Con 10 10 MEQ 1 tablet with food Orally daily Active take 1 tablet by mouth every twe lve hours Potassium Chloride ER 10 MEQ 1 tablet with food Orally Twice a day Active pramipexole dihydrochloride 1 mg oral tablet (5 sources) Nonergot Dopamine Agonist Start: 06-30-2023 End: 01-14-2025 take 1 tablet by mouth once daily Pramipexole (Mirapex) 1 mg Tablet Discontinued 1 MG PO Daily June 30, 2023 1:00am January 14, 2025 11:13am rosuvastatin calcium 20 mg oral tablet (3 sources) HMG-CoA Reductase Inhibitor Start: 03-26-2024 End: 10-02-2024 take 1 tablet by mouth once daily Rosuvastatin 20 mg tablet Discontinued 20 MG PO Daily March 26, 2024 12:00am October 02, 2024 2:57pm sevelamer carbonate 800 mg oral tablet (15 sources) Phosphate Binder Start: 06-29-2023 End: 03-26-2024 take 1 tablet by mouth three times daily at mealtime Sevelamer Carbonate (Renvela) 800 mg tablet Discontinued 800 MG PO Three times daily January 18, 2024 9:55am March 26, 2024 12:10pm must administer with a meal/food sodium chloride 1000 mg oral tablet (5 sources) Start: 08-31-2018 End: 09-04-2018 Sodium Chloride 1 gram Tablet Discontinued 1000 MG PO 1 to 4 times daily as needed for Electrolyte Replenishment August 31, 2018 1:00am September 04, 2018 8:01am Start: 08-31-2018 End: 09-04-2018 Sodium Chloride Discontinued 1000 MG PO 1 to 4 times daily August 31, 2018 1:00am September 04, 2018 8:01am spironolactone 50 mg oral tablet (8 sources) Aldosterone Antagonist Start: 10-02-2024 End: 01-14-2025 take 1 tablet by mouth twice daily Spironolactone 50 mg tablet Discontinued 50 MG PO Twice daily 60 October 02, 2024 12:00am January 14, 2025 11:14am Start: 02-12-2024 take 1 tablet by joseph th twice daily spironolactone 100 mg Tab 100 mg = 1 tab(s), Oral, BID, Refills(s) 0 Start Date: 02/12/24 Status: Ordered Start: 08-31-2018 End: 06-30-2023 take 2 tablets by mouth once daily Spironolactone 50 mg Tablet Discontinued 100 MG PO Daily August 31, 2018 1:00am June 30, 2023 1:31am Start: 08-31-2018 End: 06-30-2023 take 100 mg by mouth once daily Spironolactone Discontinued 100 MG PO Daily August 31, 2018 1:00am June 30, 2023 1:31am torsemide 100 mg oral tablet (2 sources) Loop Diuretic Start: 10-02-2024 End: 01-14-2025 Torsemide 100 mg tablet Discontinued 50 MG PO Twice daily 60 October 02, 2024 12:00am January 14, 2025 11:14am Urea (Ure-Na) 15 gram Powder In Packet (5 sources) Start: 09-04-2018 End: 06-30-2023 Urea (Ure-Na) [...] Date Episodic/Chronic Acute and unspecified renal failure (9 sources) Acute kidney failure, unspecified; Translations: [Acute renal failure syndrome] Onset: 3 06-30-2023 Episodic Acute cerebrovascular disease (1 source) Occlusion of [...] stage 3 (moderate)] Onset: 1 10-28-2022 Chronic Comment on above: Problem List clean-u p per request of Phys. EHR Cmte Chronic obstructive pulmonary disease and bronchiectasis (1 [...] failure, unspecified] Onset: 1 Resolved: 1 Chronic Comment on above: Problem List clean-u p per request of Phys. EHR Cmte Coronary atherosclerosis and other heart disease (2 sources) Atherosclerotic heart disease of [place] coronary artery without angina pectoris; Translations: [Coronary [...] Onset: 3 Chronic Deficiency and other anemia (7 sources) Anemia; Translations: [Anemia, unspecified] 10-28-2022 Episodic Deficiency and other anemia (5 sources) Anemia, unspecified; Translations: [Anemia, unspecified] Onset: 3 07-03-2023 Episodic Deficiency and other anemia (1 source) Iron deficiency anemia, unspecified; Translations: [IRON DEFICIENCY ANEMIA UNSPECIFIED] Onset: 3 Episodic E Codes: Adverse effects of medical drugs (1 source) Adverse effect of xuyetsbbqeh-gwzeoljbgm-z nzyme inhibitors, initial encounter; Translations: [ADVERSE EFFECT ACEI INITIAL ENCNTR] Onset: 3 Episodic Epilepsy; convulsions (1 source) Epilepsy, unspecified, not intractable, without status epilepticus; Translations: [EPILEPSY UNS NOT INTRACT W/O SE] Onset: 3 Chronic Esophageal disorders (2 sources) Gastro-esophageal reflux disease without esophagitis; Translations: [Gastroesophageal reflux disease] Onset: 1 02-12-2024 Chronic Essential hypertension (16 sources) Hypertensive disorder; Translations: [Essential (primary) hypertension] [...] kidney disease] Onset: 1 Resolved: 1 Chronic Comment on above: Problem List clean-u p per request of Phys. EHR Cmte Joint disorders and dislocations; trauma-related (1 source) Subluxation of unspecified cervical vertebrae, initial encounter; Translations: [Subluxation of unspecified cervical vertebrae, initial encounter] Onset: 4 Episodic Malaise and fatigue (10 sources) Asthenia; Translations: [Weakness] Onset: 2 09-04-2018 Episodic Menopausal disorders (4 sources) Postmenopausal bleeding; Translations: [POSTMENOPAUSAL BLEEDING] Onset: 2 Chronic Mood disorders (1 source) Depressive disorder Onset: 3 02-12-2024 Chronic Mood disorders (1 source) Mood disorders; Translations: [DEPRESSION UNSPECIFIED] Onset: 3 Nausea and vomiting (9 sources) Nausea; Translations: [Nausea] Episodic Nutritional deficiencies (20 sources) Vitamin D deficiency; Translations: [Vitamin D deficiency, unspecified] Onset: 1 Resolved: 1 Chronic Osteoarthritis (2 sources) Bilateral primary osteoarthritis of hip; Translations: [Unilateral primary osteoarthritis, left knee] Onset: 3 Chronic Osteoporosis (2 sources) Age-related osteoporosis without current pathological fracture; Translations: [Osteoporosis] Onset: 3 02-12-2024 Chronic Other aftercare (5 sources) Polypharmacy ; Translations: [Other fci (current) drug therapy] 09-04-2018 Episodic Other aftercare (1 source) Other fci (current) drug therapy; Translations: [OTH NURSING HOME 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 THERAPY] Onset: 3 Episodic Other [...] Onset: 3 Episodic Other connective tissue disease (3 sources) History of cervical spine fusion; Translations: [Arthrodesis status] 03-26-2024 Episodic Other diseases of kidney and ureters (9 sources) Hyperparathyroidism due to renal insufficiency; Translations: [Secondary hyperparathyroidism of renal origin] Chronic Other diseases of kidney and ureters (7 sources) Secondary hyperparathyroidism of renal origin; Translations: [Secondary hyperparathyroidism (of renal origin)] Onset: 1 Resolved: 1 Chronic Other diseases of kidney and ureters (4 sources) Secondary hyperparathyroidism; Translations: [Secondary hyperparathyroidism of renal [...] right dominant side] Onset: 1 02-12-2024 Chronic Phlebitis; thrombophlebitis and thromboembolism (6 sources) Personal history of other venous thrombosis and embolism; Translations: [H/O: Deep vein thrombosis] Onset: 3 09-16-2020 Episodic Pulmonary heart disease (8 sources) Pulmonary hypertension, [...] malignant neoplasm of breast] Onset: 12-30-2021 Episodic Residual codes; unclassified (1 source) Edema of lower extremity Onset: 01-11-2021 02-12-2024 Episodic Residual codes; unclassified (1 source) Insomnia Onset: 01-11-2021 02-12-2024 Episodic Unclassified (1 source) LOW BACK PAIN, UNSPECIFIED; Translations: [LOW BACK PAIN, UNSPECIFIED] Onset: 10-27-2022 Results Test Name Value Interpretation Reference Range Facility Laboratory - Chemistry and C hemistry - challengeOrdered By: Raeann Kirkpatrick on 01-02-2025 Bilirubin Ql (U) Negative NEGATIVE [facility] Glucose (U) [Mass/Vol] Negative NEGATIVE [facility] Ketones Ql (U) Negative NEGATIVE [facility] pH (U) 7.0 [pH] 5.0-9.0 [facility] Specific gravity (U) [Rel density] <=1.005 Abnormal 1.005-1.02 5 [facility] Urobilinogen Qn (U) 0.2 {Ligia'U}/dL 0.2-1.0 [facility] Magnesium [Mass/Vol] 2.9 mg/dL High 1.8-2.4 [facility] Urate [Mass/Vol] 5.8 mg/dL 2.6-6.0 [facility] Laboratory - Specimen inform ationOrdered By: Raeann Kirkpatrick on 01-02-2025 Appearance (U) CLEAR CLEAR [facility] Color (U) LT. YELLOW YELLOW [facility] Laboratory - UrinalysisOrder ed By: Raeann Kirkpatrick on 01-02-2025 Leukocyte esterase Test strip Ql (U) TRACE Abnormal NEGATIVE [facility] Nitrite Ql (U) Negative NEGATIVE [facility] Protein (U) [Mass/Vol] 11.2 mg/dL <=11.9 [facility] Protein Ql (U) Negative NEG/TRACE [facility] Microalbumin [Mass/volume] i n UrineOrdered By: Raeann Kirkpatrick on 01-02-2025 Albumin DL <= 20 mg/L (U) [Mass/Vol] mg/dL <=30.0 [facility] No Panel InformationOrdered By: Raeann Kirkpatrick on 01-02-2025 Urine Occult Blood TRACE-I NEGATIVE [facility] Urine Random Creatinine 34.82 mg/dL 20.00-300. 00 [facility] 25-Hydroxy Vitamin D Total 69.4 ng/mL [facility] Comment on above: <20 ng/mL Vit D defi cient20-<30 ng/mL Vit D kghxpokbzvye16-432 ng/mL Vit D sufficient>100 ng/mL Potential Toxicity Parathyroid Hormone (Intact) 87 pg/mL Abnormal 15-65 [facility] Comment on above: Performed at: [facility] [address] [id number] Director: Josué Crouch PhD, Phone: [phone] Phosphorus Level 5.2 mg/dL High 2.6-4.7 [facility] Urine protein/creatinine rat ioOrdered By: Raeann Kirkpatrick on 01-02-2025 Protein/Creatinine (U) [Ratio] 0.32 [facility] Office Visiton 10-11-2024 Follow-up visit [id number] Loren Moser A 1960 F Date Provider Department Center 10/11/2024 [facility] Family History Problem Relation Age of Onset Stroke Mother Heart failure Father Family Status - Relation Status Age at Mother Father Sister Brother Alive Level of Service:29728 [place] OFFICE/OUTPATIENT ESTABLISHED LOW MDM 20 MIN Normal [facility] Follow-Upon 09-09-2024 Follow-Up [id number] Loren Moser A 1960 F Date Provider Department Center 09/09/2024 Hemant-MATTHEW BROOKS MP ORTHO MPORTHO Family History Family history unknown: Yes Level of Service:80194 [place] OFFICE/OUTPATIENT ESTABLISHED LOW MDM 20 MIN (GC) Normal [facility] Laboratory - Chemistry and C hemistry - challengeon 07-18-2024 Bilirubin Ql (U) Negative NEGATIVE [facility] Glucose (U) [Mass/Vol] Negative NEGATIVE [facility] Ketones Ql (U) Negative NEGATIVE [facility] pH (U) 5.5 [pH] 5.0-9.0 [facility] Specific gravity (U) [Rel density] 1.010 1.005-1.02 5 [facility] Urobilinogen Qn (U) 0.2 {Ligia'U}/dL 0.2-1.0 [facility] Magnesium [Mass/Vol] 2.0 mg/dL 1.8-2.4 [facility] Urate [Mass/Vol] 7.8 mg/dL High 2.6-6.0 [facility] Laboratory - Specimen inform ationon 07-18-2024 Appearance (U) CLEAR CLEAR [facility] Color (U) LT. YELLOW YELLOW [facility] Laboratory - Urinalysison Leukocyte esterase Test strip Ql (U) Negative NEGATIVE [facility] Nitrite Ql (U) Negative NEGATIVE [facility] Protein (U) [Mass/Vol] 7.6 mg/dL <=11.9 [facility] Protein Ql (U) Negative NEG/TRACE [facility] Microalbumin [Mass/volume] i n Urineon 07-18-2024 Albumin DL <= 20 mg/L (U) [Mass/Vol] Microalbumin [Mass/volume] in Urine <=30.0 [facility] No Panel Informationon 07-18 Urine Occult Blood Negative NEGATIVE [facility] Urine Random Creatinine 19.27 mg/dL Low 20.00-300. 00 [facility] 25-Hydroxy Vitamin D Total 49.9 ng/mL [facility] Comment on above: <20 ng/mL Vit D defi cient20-<30 ng/mL Vit D [id number] ng/mL Vit D sufficient>100 ng/mL Potential Toxicity Parathyroid Hormone (Intact) 266 pg/mL Abnormal 15-65 [facility] Comment on above: Performed at: [facility] [employer] [place] [id number] Director: Josué Crouch PhD, Phone: [phone] Phosphorus Level 5.3 mg/dL High 2.6-4.7 [facility] Urine protein/creatinine rat ioon 07-18-2024 Protein/Creatinine (U) [Ratio] Urine protein/creatinine ratio [facility] Office Visiton 03-27-2024 Follow-up visit [id number] Loren Moser 1960 F Date Provider Department [facility] Family History Family history unknown: Yes Level of Service:70221 [place] OFFICE/OUTPATIENT ESTABLISHED LOW MDM 20 MIN Normal [facility] Ambulatory Visit Summaryon 0 03-05-2024 Ambulatory Visit Summary Ambulatory Visit Summary MABEL MOSER :1960 Visit Date:03/05/2024 Ambulatory Visit Instructions Your Care Team Attending Physician - FAYE ASCENCIO, Migel Trujillo Primary Care Physician - Esther ASCENCIO, Angle Referring Physician - Esther ASCENCIO, Angle This Is Your Medications List APAP/butalbital/caffeine (Fioricet oral capsule) acetaminophen-oxycodone (Percocet 5 mg-325 mg oral tablet) alprazolam (alprazolam 0.5 mg Tab) amitriptyline (amitriptyline 150 mg Tab) apixaban (Eliquis 5 mg oral tablet) aspirin (aspirin 81 mg Chew Tab) atorvastatin (atorvastatin 40 mg Tab) bumetanide (bumetanide 2 mg Tab) butorphanol (butorphanol 10 mg/mL Nasal [place]) cyanocobalamin (cyanocobalamin 1000 mcg/mL Inj) desvenlafaxine (desvenlafaxine [...] Unchanged butorphanol (butorphanol 10 mg/ mL Nasal [place]) 1 Sprays Nasal Inhalation Every day as [...] hypertension Bilate (more content not included)... Normal [facility] Magnesiumon 01-30-2024 Magnesium [Mass/Vol] 2.0 mg/dL Normal 1.6-2.4 [facility] Comment on above: Performed By: #### C OBIE CMPX #### [facility] [employer] [address] [place] [id number] [employer] [place] Recorder: Michael Chen MD CBC with Diffon 01-29-2024 Abs. Basophil 0.00 k/uL Normal 0.0-0.2 [facility] Comment on above: Performed By: #### C DP, CMPX #### [facility] [address] [place] [id number] [employer] [place] Recorder: Michael Chen MD Abs.Imm.Granulocyte 0.09 k/uL Normal 0.00-0.30 [facility] Comment on above: Performed By: #### C DP, CMPX #### [facility] [address] [place] [id number] [employer] [place] Recorder: Michael Chen MD Abs.Neutrophil (Seg) 6.87 k/uL Normal 1.8-7.7 [facility] Comment on above: Performed By: #### C DP, CMPX #### [facility] [employer] [address] [place] [id number] [employer] [place] Recorder: Michael Chen MD Basophils/100 WBC (Bld) 0 % Normal 0-2 [facility] Comment on above: Performed By: #### C DP, CMPX #### [address] [address] [employer] [place] [employer] Recorder: Michael Chen MD Eosinophils (Bld) [#/Vol] 0.26 10*3/uL Normal 0.0-0.4 [facility] Comment on above: Performed By: #### C DP, CMPX #### [address] [address] [employer] Recorder: Michael Chen MD Eosinophils/100 WBC (Bld) 3 % Normal 1-4 [facility] Comment on above: Performed By: #### C DP, CMPX #### [address] [address] [employer] [place] Recorder: Michael Chen MD Immature granulocytes/100 WBC (Bld) 1 % High 0 [facility] Comment on above: Performed By: #### C DP, CMPX #### [address] [address] [employer] [place] Recorder: Michael Chen MD Lymphocytes (Bld) [#/Vol] 0.95 10*3/uL Low 1.0-4.8 [facility] Comment on above: Performed By: #### C DP, CMPX #### [address] [address] [employer] Recorder: Michael Chen MD Lymphocytes/100 WBC (Bld) 11 % Low 24-44 [facility] Comment on above: Performed By: #### C DP, CMPX #### [address] [address] [employer] Recorder: Michael Chen MD Monocytes (Bld) [#/Vol] 0.43 10*3/uL Normal 0.1-0.8 [facility] Comment on above: Performed By: #### C DP, CMPX #### [address] [address] [employer] Recorder: Michael Chen MD Monocytes/100 WBC (Bld) 5 % Normal 1-7 [facility] Comment on above: Performed By: #### C DP, CMPX #### [address] [address] [employer]: Michael Chen MD Morphology Pedro (Bld) [Interp] Normal Normal [facility] Comment on above: Performed By: #### C DP, CMPX #### [address] [address] [employer]: Michael Chen MD Neutrophil (Seg) 80 % High 36-66 [facility] Comment on above: Performed By: #### C DP, CMPX #### [address] [address] [employer]: Michael Chen MD Platelet, Fluoresc. 288 k/uL Normal 138-453 [facility] Comment on above: Performed By: #### C DP, CMPX #### [address] [address] [employer]: Michael Chen MD PLT, Immature Fract. 1.5 % Normal 1.1-10.3 [facility] Comment on above: Performed By: #### C DP, CMPX #### [address] [address] [employer]: Michael Chen MD Erythrocyte distribution width (RBC) [Ratio] 13.6 % Normal 11.8-14.4 [facility] Comment on above: Performed By: #### C DP, CMPX #### [address] [address] [employer]: Michael Chen MD Hematocrit (Bld) [Volume fraction] 25.9 % Low 36.3-47.1 [facility] Comment on above: Performed By: #### C DP, CMPX #### [address] [address] [employer]: Michael Chen MD Hemoglobin (Bld) [Mass/Vol] 7.8 g/dL Low 11.9-15.1 [facility] Comment on above: Performed By: #### C DP, CMPX #### [address] [address] [employer]: Michael Chen MD MCH (RBC) [Entitic mass] 29.8 pg Normal 25.2-33.5 [facility] Comment on above: Performed By: #### C DP, CMPX #### [address] [address] [employer]: Michael Chen MD MCHC (RBC) [Mass/Vol] 30.1 g/dL Normal 28.4-34.[address] [facility] Comment on above: Performed By: #### C DP, CMPX #### [address] [address] [employer]: Michael Chen MD MCV (RBC) [Entitic vol] 98.9 fL Normal 82.6-102.9 [facility] Comment on above: Performed By: #### C DP, CMPX #### [address] [address] [employer]: Michael Chen MD NRBC Automated 0.0 per 100 WBC Normal 0.0 [facility] Comment on above: Performed By: #### C DP, CMPX #### [address] [address] [employer]: Michael Chen MD Platelet Count See Reflexed IPF Result Normal 138-453 [facility] Comment on above: Performed By: #### C DP, CMPX #### [facility] [address] [place] [address] [employer]: Michael Chen MD RBC (Bld) [#/Vol] 2.62 10*6/uL Low 3.95-5.11 [facility] Comment on above: Performed By: #### C DP, CMPX #### [facility] [address] [place] [address] [employer]: Michael Chen MD WBC (Bld) [#/Vol] 8.6 10*3/uL Normal 3.5-11.3 [facility] Comment on above: Performed By: #### C DP, CMPX #### [facility] [place] [address] [employer]: Michael Chen MD CTA HEAD NECK W [...] Flavio Pierson MD 01/29/24 Final result Normal [facility] Comp Metabolic Pr/rfx MGon 0 01-29-2024 Albumin [Mass/Vol] 3.0 g/dL Low 3.5-5.2 [facility] Comment on above: Performed By: #### C DP, CMPX #### [facility] [employer] [address] [place] [address] [employer]: Michael Chen MD Albumin/Glob Ratio 1.0 Normal 1.0-2.5 [facility] Comment on above: Performed By: #### C DP, CMPX #### [facility] [address] [place] [id number] [employer]: Michael Chen MD Alkaline Phos 205 U/L High 35-104 [facility] Comment on above: Performed By: #### C DP, CMPX #### [facility] [employer] [address] [place] [address] [employer]: Michael Chen MD ALT [Catalytic activity/Vol] U/L Low 10-35 [facility] Comment on above: Performed By: #### C DP, CMPX #### [address] [address] [employer]: Michael Chen MD Anion gap [Moles/Vol] 11 mmol/L Normal 9-[address] [facility] Comment on above: Performed By: #### C DP, CMPX #### [address] [address] [employer]: Michael Chen MD AST [Catalytic activity/Vol] 27 U/L Normal 10-35 [facility] Comment on above: Performed By: #### C DP, CMPX #### [address] [address] [employer]: Michael Chen MD Bilirubin [Mass/Vol] 0.2 mg/dL Normal 0.00-1.20 [facility] Comment on above: Performed By: #### C DP, CMPX #### [address] [address] [employer]: Michael Chen MD Calcium [Mass/Vol] 8.0 mg/dL Low 8.6-10.4 [facility] Comment on above: Performed By: #### C DP, CMPX #### [address] [address] [employer]: Michael Chen MD Chloride [Moles/Vol] 101 mmol/L Normal 98-107 [facility] Comment on above: Performed By: #### C DP, CMPX #### [address] [address] [employer]: Michael Chen MD CO2 [Moles/Vol] 19 mmol/L Low 20-31 [facility] Comment on above: Performed By: #### C DP, CMPX #### [facility] [employer] [address] [place] [address] [employer]: Michael Chen MD Creatinine [Mass/Vol] 1.6 mg/dL High 0.50-0.[address] [facility] Comment on above: Performed By: #### C DP, CMPX #### [address] [address] [employer]: Michael Chen MD GFR/1.73 sq M.predicted among non-blacks MDRD (S/P/Bld) [Vol rate/Area] 38 mL/min/{1.73_m2} Low >60 [facility] Comment on above: Result Comment: [...] Performed By: #### C DP, CMPX #### [address] [address] [employer]: Michael Chen MD Glucose [Mass/Vol] 90 mg/dL Normal 74-99 [facility] Comment on above: Performed By: #### C DP, CMPX #### [address] [address] [employer]: Michael Chen MD Potassium [Moles/Vol] 4.4 mmol/L Normal 3.7-5.[address] [facility] Comment on above: Performed By: #### C DP, CMPX #### [facility] [employer] [address] [place] [address] [employer]: Michael Chen MD Protein [Mass/Vol] 5.4 g/dL Low 6.6-8.7 [facility] Comment on above: Performed By: #### C DP, CMPX #### [address] [address] [employer]: Michael Chen MD Sodium [Moles/Vol] 131 mmol/L Low 136-145 [facility] Comment on above: Performed By: #### C DP, CMPX #### [address] [address] [employer]: Michael Chen MD Urea nitrogen [Mass/Vol] 46 mg/dL High 8-23 [facility] Comment on above: Performed By: #### C DP, CMPX #### [address] [address] [employer]: Michael Chen MD Magnesiumon 01-29-2024 Magnesium [Mass/Vol] 2.1 mg/dL Normal 1.6-2.4 [facility] Comment on above: Performed By: #### M G #### [address] [address] [employer]: Michael Chne MD Basic Metab w/rfx MGon 01-27 Anion gap [Moles/Vol] 10 mmol/L Normal 9-[address] [facility] Comment on above: Performed By: #### C DP, CMPX #### [address] [address] [employer]: Michael Chen MD Calcium [Mass/Vol] 7.5 mg/dL Low 8.6-10.4 [facility] Comment on above: Performed By: #### C DP, CMPX #### [address] [address] [employer]: Michael Chen MD Chloride [Moles/Vol] 101 mmol/L Normal 98-107 [facility] Comment on above: Performed By: #### C DP, CMPX #### [address] [address] [employer]: Michael Chen MD CO2 [Moles/Vol] 22 mmol/L Normal 20-31 [facility] Comment on above: Performed By: #### C DP, CMPX #### [address] [address] [employer]: Michael Chen MD Creatinine [Mass/Vol] 1.8 mg/dL High 0.50-0.[address] [facility] Comment on above: Performed By: #### C DP, CMPX #### [address] [address] [employer]: Michael Chen MD GFR/1.73 sq M.predicted among non-blacks MDRD (S/P/Bld) [Vol rate/Area] 33 mL/min/{1.73_m2} Low >60 [facility] Comment on above: Result Comment: [...] Performed By: #### C DP, CMPX #### [address] [address] [employer]: Michael Chen MD Glucose [Mass/Vol] 92 mg/dL Normal 74-99 [facility] Comment on above: Performed By: #### C DP, CMPX #### [address] [address] [employer]: Michael Chen MD Potassium [Moles/Vol] 4.6 mmol/L Normal 3.7-5.[address] [facility] Comment on above: Performed By: #### C DP, CMPX #### [address] [address] [employer]: Michael Chen MD Sodium [Moles/Vol] 133 mmol/L Low 136-145 [facility] Comment on above: Performed By: #### C DP, CMPX #### [address] [address] [employer]: Michael Chen MD Urea nitrogen [Mass/Vol] 46 mg/dL High 8-23 [facility] Comment on above: Performed By: #### C DP, CMPX #### [address] [address] [employer]: Michael Chen MD CBC with Diffon 01-28-2024 Abs. Basophil <0.03 Normal 0.00-0.20 [facility] Comment on above: Performed By: #### C DP, CMPX #### [address] [address] [employer]: Michael Chen MD Abs.Imm.Granulocyte 0.13 k/uL Normal 0.00-0.30 [facility] Comment on above: Performed By: #### C DP, CMPX #### [address] [address] [employer]: Michael Chen MD Abs.Neutrophil (Seg) 4.37 k/uL Normal 1.50-8.10 [facility] Comment on above: Performed By: #### C DP, CMPX #### [address] [address] [employer]: Michael Chen MD Basophils/100 WBC (Bld) 0 % Normal 0-2 [facility] Comment on above: Performed By: #### C DP, CMPX #### [address] [address] [employer]: Michael Chen MD Eosinophils (Bld) [#/Vol] 0.25 10*3/uL Normal 0.00-0.44 [facility] Comment on above: Performed By: #### C DP, CMPX #### [address] [address] [employer]: Michael Chen MD Eosinophils/100 WBC (Bld) 4 % Normal 1-4 [facility] Comment on above: Performed By: #### C DP, CMPX #### [address] [address] [employer]: Michael Chen MD Immature granulocytes/100 WBC (Bld) 2 % High 0 [facility] Comment on above: Performed By: #### C DP, CMPX #### [address] [address] [employer]: Michael Chen MD Lymphocytes (Bld) [#/Vol] 1.15 10*3/uL Normal 1.10-3.70 [facility] Comment on above: Performed By: #### C DP, CMPX #### [address] [address] [employer]: Michael Chen MD Lymphocytes/100 WBC (Bld) 18 % Low 24-43 [facility] Comment on above: Performed By: #### C DP, CMPX #### [address] [address] [employer]: Michael Chen MD Monocytes (Bld) [#/Vol] 0.59 10*3/uL Normal 0.10-1.20 [facility] Comment on above: Performed By: #### C DP, CMPX #### [address] [address] [employer]: Michael Chen MD Monocytes/100 WBC (Bld) 9 % Normal 3-12 [facility] Comment on above: Performed By: #### C DP, CMPX #### [address] [address] [employer]: Michael Chen MD Neutrophil (Seg) 67 % High 36-65 [facility] Comment on above: Performed By: #### C DP, CMPX #### [place] [address] [employer]: Michael Chen MD Erythrocyte distribution width (RBC) [Ratio] 13.6 % Normal 11.8-14.4 [facility] Comment on above: Performed By: #### C DP, CMPX #### [place] [address] [employer]: Michael Chen MD Hematocrit (Bld) [Volume fraction] 24.0 % Low 36.3-47.1 [facility] Comment on above: Performed By: #### C DP, CMPX #### [address] [address] [employer]: Michael Chen MD Hemoglobin (Bld) [Mass/Vol] 7.1 g/dL Low 11.9-15.1 [facility] Comment on above: Performed By: #### C DP, CMPX #### [place] [address] [employer]: Michael Chen MD MCH (RBC) [Entitic mass] 29.6 pg Normal 25.2-33.5 [facility] Comment on above: Performed By: #### C DP, CMPX #### [address] [address] [employer]: Michael Chen MD MCHC (RBC) [Mass/Vol] 29.6 g/dL Normal 28.4-34.[address] [facility] Comment on above: Performed By: #### C DP, CMPX #### [address] [place] [address] [employer]: Michael Chen MD MCV (RBC) [Entitic vol] 100.0 fL Normal 82.6-102.9 [facility] Comment on above: Performed By: #### C DP, CMPX #### [address] [address] [employer]: Michael Chen MD NRBC Automated 0.0 per 100 WBC Normal 0.0 [facility] Comment on above: Performed By: #### C DP, CMPX #### [address] [address] [employer]: Michael Chen MD Platelet mean volume (Bld) [Entitic vol] 9.2 fL Normal 8.1-13.5 [facility] Comment on above: Performed By: #### C DP, CMPX #### [address] [address] [employer]: Michael Chen MD Platelets (Bld) [#/Vol] 222 10*3/uL Normal 138-453 [facility] Comment on above: Performed By: #### C DP, CMPX #### [address] [address] [employer]: Michael Chen MD RBC (Bld) [#/Vol] 2.40 10*6/uL Low 3.95-5.11 [facility] Comment on above: Performed By: #### C DP, CMPX #### [address] [address] [employer]: Michael Chen MD WBC (Bld) [#/Vol] 6.5 10*3/uL Normal 3.5-11.3 [facility] Comment on above: Performed By: #### C DP, CMPX #### [address] [place] [address] [employer]: Michael Chen MD Magnesiumon 01-28-2024 Magnesium [Mass/Vol] 1.6 mg/dL Normal 1.6-2.4 [facility] Comment on above: Performed By: #### C DP, CMPX #### [facility] [address] [place] [address] [employer]: Michael Chen MD Basic Metab w/rfx MGon 01-26 Anion gap [Moles/Vol] 11 mmol/L Normal 9-[address] [facility] Comment on above: Performed By: #### C DP, CMPX #### [facility] [address] [place] [address] [employer]: Michael Chen MD Calcium [Mass/Vol] 7.4 mg/dL Low 8.6-10.4 [facility] Comment on above: Performed By: #### C DP, CMPX #### [facility] [address] [place] [address] [employer] Recorder: Michael Chen MD Chloride [Moles/Vol] 102 mmol/L Normal 98-107 [facility] Comment on above: Performed By: #### C DP, CMPX #### [facility] [address] [place] [address] [employer]: Michael Chen MD CO2 [Moles/Vol] 21 mmol/L Normal 20-31 [facility] Comment on above: Performed By: #### C DP, CMPX #### [facility] [address] [place] [address] [employer]: Michael Chen MD Creatinine [Mass/Vol] 1.6 mg/dL High 0.50-0.[address] [facility] Comment on above: Performed By: #### C DP, CMPX #### [facility] [address] [place] [address] [employer]: Michael Chen MD GFR/1.73 sq M.predicted among non-blacks MDRD (S/P/Bld) [Vol rate/Area] 36 mL/min/{1.73_m2} Low >60 [facility] Comment on above: Result Comment: [...] Performed By: #### C DP, CMPX #### [address] [address] [employer]: Michael Chen MD Glucose [Mass/Vol] 169 mg/dL High 74-99 [facility] Comment on above: Performed By: #### C DP, CMPX #### [address] [address] [employer]: Michael Chen MD Potassium [Moles/Vol] 4.4 mmol/L Normal 3.7-5.[address] [facility] Comment on above: Performed By: #### C DP, CMPX #### [address] [address] [employer]: Michael Chen MD Sodium [Moles/Vol] 134 mmol/L Low 136-145 [facility] Comment on above: Performed By: #### C DP, CMPX #### [facility] [employer] [address] [place] [address] [employer]: Michael Chen MD Urea nitrogen [Mass/Vol] 42 mg/dL High 8-23 [facility] Comment on above: Performed By: #### C DP, CMPX #### [facility] [employer] [address] [place] [address] [employer]: Michael Chen MD CBC with Diffon 01-27-2024 Abs. Basophil <0.03 Normal 0.00-0.20 [facility] Comment on above: Performed By: #### C DP, CMPX #### [place] [address] [employer]: Michael Chen MD Abs.Imm.Granulocyte 0.06 k/uL Normal 0.00-0.30 [facility] Comment on above: Performed By: #### C DP, CMPX #### [place] [address] [employer]: Michael Chen MD Abs.Neutrophil (Seg) 5.93 k/uL Normal 1.50-8.10 [facility] Comment on above: Performed By: #### C DP, CMPX #### [place] [address] [employer] Rec[employer]: Michael Chen MD Basophils/100 WBC (Bld) 0 % Normal 0-2 [facility] Comment on above: Performed By: #### C DP, CMPX #### [place] [address] [employer]: Michael Chen MD Eosinophils (Bld) [#/Vol] 0.17 10*3/uL Normal 0.00-0.44 [facility] Comment on above: Performed By: #### C DP, CMPX #### [place] [address] [employer]: Michael Chen MD Eosinophils/100 WBC (Bld) 2 % Normal 1-4 [facility] Comment on above: Performed By: #### C DP, CMPX #### [place] [address] [employer]: Michael Chen MD Erythrocyte distribution width (RBC) [Ratio] 13.8 % Normal 11.8-14.4 [facility] Comment on above: Performed By: #### C DP, CMPX #### [address] [address] [employer]: Michael Chen MD Hematocrit (Bld) [Volume fraction] 26.3 % Low 36.3-47.1 [facility] Comment on above: Performed By: #### C DP, CMPX #### [place] [address] [employer] Rec[employer]: Michael Chen MD Hemoglobin (Bld) [Mass/Vol] 7.8 g/dL Low 11.9-15.1 [facility] Comment on above: Performed By: #### C DP, CMPX #### [place] [address] [employer]: Michael Chen MD Immature granulocytes/100 WBC (Bld) 1 % High 0 [facility] Comment on above: Performed By: #### C DP, CMPX #### [place] [address] [employer]: Michael Chen MD Lymphocytes (Bld) [#/Vol] 0.79 10*3/uL Low 1.10-3.70 [facility] Comment on above: Performed By: #### C DP, CMPX #### [address] [address] [employer]: Michael Chen MD Lymphocytes/100 WBC (Bld) 11 % Low 24-43 [facility] Comment on above: Performed By: #### C DP, CMPX #### [place] [address] [employer] Rec[employer]: Michael Chen MD MCH (RBC) [Entitic mass] 29.8 pg Normal 25.2-33.5 [facility] Comment on above: Performed By: #### C DP, CMPX #### [address] [address] [employer]: Michael Chen MD MCHC (RBC) [Mass/Vol] 29.7 g/dL Normal 28.4-34.[address] [facility] Comment on above: Performed By: #### C DP, CMPX #### [place] [address] [employer]: Michael Chen MD MCV (RBC) [Entitic vol] 100.4 fL Normal 82.6-102.9 [facility] Comment on above: Performed By: #### C DP, CMPX #### [place] [address] [employer]: Michael Chen MD Monocytes (Bld) [#/Vol] 0.38 10*3/uL Normal 0.10-1.20 [facility] Comment on above: Performed By: #### C DP, CMPX #### [place] [address] [employer]: Michael Chen MD Monocytes/100 WBC (Bld) 5 % Normal 3-12 [facility] Comment on above: Performed By: #### C DP, CMPX #### [place] [address] [employer]: Michael Chen MD Neutrophil (Seg) 81 % High 36-65 [facility] Comment on above: Performed By: #### C DP, CMPX #### [place] [address] [employer]: Michael Chen MD NRBC Automated 0.0 per 100 WBC Normal 0.0 [facility] Comment on above: Performed By: #### C DP, CMPX #### [place] [address] [employer]: Michael Chen MD Platelet mean volume (Bld) [Entitic vol] 9.6 fL Normal 8.1-13.5 [facility] Comment on above: Performed By: #### C DP, CMPX #### [address] [address] [employer]: Michael Chen MD Platelets (Bld) [#/Vol] 239 10*3/uL Normal 138-453 [facility] Comment on above: Performed By: #### C DP, CMPX #### [address] [address] [employer]: Michael Chen MD RBC (Bld) [#/Vol] 2.62 10*6/uL Low 3.95-5.11 [facility] Comment on above: Performed By: #### C DP, CMPX #### [address] [address] [employer]: Michael Chen MD WBC (Bld) [#/Vol] 7.3 10*3/uL Normal 3.5-11.3 [facility] Comment on above: Performed By: #### C DP, CMPX #### [address] [address] [employer] Recorder: Michael Chen MD CT CERVICAL SPINE WO [...] Alex Hickman MD 01/27/24 Final result Normal [facility] Basic Metab w/rfx MGon 01-25 Anion gap [Moles/Vol] 8 mmol/L Low 9-16 [facility] Comment on above: Performed By: #### B MPX, CDP #### [facility] [address] [place] [address] [employer]: Michael Chen MD Calcium [Mass/Vol] 7.8 mg/dL Low 8.6-10.4 [facility] Comment on above: Performed By: #### B MPX, CDP #### [facility] [address] [place] [address] [employer]: Michael Chen MD Chloride [Moles/Vol] 104 mmol/L Normal 98-107 [facility] Comment on above: Performed By: #### B MPX, CDP #### [facility] [address] [place] [address] [employer]: Michael Chen MD CO2 [Moles/Vol] 23 mmol/L Normal 20-31 [facility] Comment on above: Performed By: #### B MPX, CDP #### [address] [address] [employer]: Michael Chen MD Creatinine [Mass/Vol] 1.6 mg/dL High 0.50-0.[address] [facility] Comment on above: Performed By: #### B MPX, CDP #### [address] [address] [employer]: Michael Chen MD GFR/1.73 sq M.predicted among non-blacks MDRD (S/P/Bld) [Vol rate/Area] 38 mL/min/{1.73_m2} Low >60 [facility] Comment on above: Result Comment: [...] Performed By: #### B MPX, CDP #### [address] [address] [employer]: Michael Chen MD Glucose [Mass/Vol] 109 mg/dL High 74-99 [facility] Comment on above: Performed By: #### B MPX, CDP #### [facility] [address] [place] [address] [employer]: Michael Chen MD Potassium [Moles/Vol] 5.3 mmol/L Normal 3.7-5.[address] [facility] Comment on above: Performed By: #### B MPX, CDP #### [facility] [address] [place] [address] [employer]: Michael Chen MD Sodium [Moles/Vol] 135 mmol/L Low 136-145 [facility] Comment on above: Performed By: #### B MPX, CDP #### [facility] [address] [place] [address] [employer]: Michael Chen MD Urea nitrogen [Mass/Vol] 40 mg/dL High 8-23 [facility] Comment on above: Performed By: #### B MPX, CDP #### [facility] [employer] [address] [place] [address] [employer]: Michael Chen MD Anion gap [Moles/Vol] 11 mmol/L Normal 9-[address] [facility] Comment on above: Performed By: #### B MPX, CDP #### [facility] [employer] [address] [place] [address] [employer]: Michael Chen MD Calcium [Mass/Vol] 7.6 mg/dL Low 8.6-10.4 [facility] Comment on above: Performed By: #### B MPX, CDP #### [facility] [address] [place] [address] [employer]: Michael Chen MD Chloride [Moles/Vol] 102 mmol/L Normal 98-107 [facility] Comment on above: Performed By: #### B MPX, CDP #### [facility] [address] [employer]: Michael Chen MD CO2 [Moles/Vol] 20 mmol/L Normal 20-31 [facility] Comment on above: Performed By: #### B MPX, CDP #### [address] [address] [employer]: Michael Chen MD Creatinine [Mass/Vol] 1.7 mg/dL High 0.50-0.[address] [facility] Comment on above: Performed By: #### B MPX, CDP #### [address] [address] [employer]: Michael Chen MD GFR/1.73 sq M.predicted among non-blacks MDRD (S/P/Bld) [Vol rate/Area] 35 mL/min/{1.73_m2} Low >60 [facility] Comment on above: Result Comment: [...] Performed By: #### B MPX, CDP #### [address] [address] [employer]: Michael Chen MD Glucose [Mass/Vol] 106 mg/dL High 74-99 [facility] Comment on above: Performed By: #### B MPX, CDP #### [address] [address] [employer]: Michael Chen MD Potassium [Moles/Vol] 5.0 mmol/L Normal 3.7-5.[address] [facility] Comment on above: Performed By: #### B MPX, CDP #### [address] [address] [employer]: Michael Chen MD Sodium [Moles/Vol] 133 mmol/L Low 136-145 [facility] Comment on above: Performed By: #### B MPX, CDP #### [address] [address] [employer]: Michael Chen MD Urea nitrogen [Mass/Vol] 46 mg/dL High 8-23 [facility] Comment on above: Performed By: #### B MPX, CDP #### [address] [address] [employer]: Michael Chen MD CBC with Diffon 01-26-2024 Abs. Basophil <0.03 Normal 0.00-0.20 [facility] Comment on above: Performed By: #### B MPX, CDP #### [address] [address] [employer]: Michael Chen MD Abs.Imm.Granulocyte 0.13 k/uL Normal 0.00-0.30 [facility] Comment on above: Performed By: #### B MPX, CDP #### [address] [address] [employer]: Michael Chen MD Abs.Neutrophil (Seg) 8.21 k/uL High 1.50-8.10 [facility] Comment on above: Performed By: #### B MPX, CDP #### [facility] [employer] [address] [place] [address] [employer]: Michael Chen MD Basophils/100 WBC (Bld) 0 % Normal 0-2 [facility] Comment on above: Performed By: #### B MPX, CDP #### [address] [address] [employer]: Michael Chen MD Eosinophils (Bld) [#/Vol] 0.19 10*3/uL Normal 0.00-0.44 [facility] Comment on above: Performed By: #### B MPX, CDP #### [address] [address] [employer]: Michael Chen MD Eosinophils/100 WBC (Bld) 2 % Normal 1-4 [facility] Comment on above: Performed By: #### B MPX, CDP #### [facility] [employer] [address] [place] [address] [employer]: Michael Chen MD Erythrocyte distribution width (RBC) [Ratio] 13.9 % Normal 11.8-14.4 [facility] Comment on above: Performed By: #### B MPX, CDP #### [address] [address] [employer]: Michael Chen MD Hematocrit (Bld) [Volume fraction] 28.3 % Low 36.3-47.1 [facility] Comment on above: Performed By: #### B MPX, CDP #### [address] [address] [employer]: Michael Chen MD Hemoglobin (Bld) [Mass/Vol] 8.6 g/dL Low 11.9-15.1 [facility] Comment on above: Performed By: #### B MPX, CDP #### [address] [address] [employer]: Michael Chen MD Immature granulocytes/100 WBC (Bld) 1 % High 0 [facility] Comment on above: Performed By: #### B MPX, CDP #### [address] [address] [employer]: Michael Chen MD Lymphocytes (Bld) [#/Vol] 1.09 10*3/uL Low 1.10-3.70 [facility] Comment on above: Performed By: #### B MPX, CDP #### [address] [address] [employer]: Michael Chen MD Lymphocytes/100 WBC (Bld) 10 % Low 24-43 [facility] Comment on above: Performed By: #### B MPX, CDP #### [place] [address] [employer]: Michael Chen MD MCH (RBC) [Entitic mass] 29.5 pg Normal 25.2-33.5 [facility] Comment on above: Performed By: #### B MPX, CDP #### [address] [address] [employer]: Michael Chen MD MCHC (RBC) [Mass/Vol] 30.4 g/dL Normal 28.4-34.[address] [facility] Comment on above: Performed By: #### B MPX, CDP #### [address] [address] [employer]: Michael Chen MD MCV (RBC) [Entitic vol] 96.9 fL Normal 82.6-102.9 [facility] Comment on above: Performed By: #### B MPX, CDP #### [place] [address] [employer]: Michael Chen MD Monocytes (Bld) [#/Vol] 0.85 10*3/uL Normal 0.10-1.20 [facility] Comment on above: Performed By: #### B MPX, CDP #### [address] [address] [employer]: Michael Chen MD Monocytes/100 WBC (Bld) 8 % Normal 3-12 [facility] Comment on above: Performed By: #### B MPX, CDP #### [facility] [address] [place] [address] [employer]: Michael Chen MD Neutrophil (Seg) 79 % High 36-65 [facility] Comment on above: Performed By: #### B MPX, CDP #### [facility] [address] [place] [address] [employer]: Michael Chen MD NRBC Automated 0.0 per 100 WBC Normal 0.0 [facility] Comment on above: Performed By: #### B MPX, CDP #### [address] [address] [employer]: Michael Chen MD Platelet mean volume (Bld) [Entitic vol] 9.7 fL Normal 8.1-13.5 [facility] Comment on above: Performed By: #### B MPX, CDP #### [address] [address] [employer]: Michael Chen MD Platelets (Bld) [#/Vol] 270 10*3/uL Normal 138-453 [facility] Comment on above: Performed By: #### B MPX, CDP #### [address] [address] [employer]: Michael Chen MD RBC (Bld) [#/Vol] 2.92 10*6/uL Low 3.95-5.11 [facility] Comment on above: Performed By: #### B MPX, CDP #### [address] [address] [employer]: Michael Chen MD WBC (Bld) [#/Vol] 10.5 10*3/uL Normal 3.5-11.3 [facility] Comment on above: Performed By: #### B MPX, CDP #### [facility] [employer] [address] [place] [address] [employer]: Michael Chen MD Abs. Basophil 0.03 k/uL Normal 0.00-0.20 [facility] Comment on above: Performed By: #### B MPX, CDP #### [facility] [employer] [address] [place] [address] [employer]: Michael Chen MD Abs.Imm.Granulocyte 0.08 k/uL Normal 0.00-0.30 [facility] Comment on above: Performed By: #### B MPX, CDP #### [address] [address] [employer]: Michael Chen MD Abs.Neutrophil (Seg) 12.75 k/uL High 1.50-8.10 [facility] Comment on above: Performed By: #### B MPX, CDP #### [facility] [employer] [address] [place] [address] [employer]: Michael Chen MD Basophils/100 WBC (Bld) 0 % Normal 0-2 [facility] Comment on above: Performed By: #### B MPX, CDP #### [address] [address] [employer]: Michael Chen MD Eosinophils (Bld) [#/Vol] 0.16 10*3/uL Normal 0.00-0.44 [facility] Comment on above: Performed By: #### B MPX, CDP #### [address] [address] [employer]: Michael Chen MD Eosinophils/100 WBC (Bld) 1 % Normal 1-4 [facility] Comment on above: Performed By: #### B MPX, CDP #### [facility] [employer] [address] [place] [address] [employer]: Michael Chen MD Erythrocyte distribution width (RBC) [Ratio] 13.7 % Normal 11.8-14.4 [facility] Comment on above: Performed By: #### B MPX, CDP #### [address] [address] [employer]: Michael Chen MD Hematocrit (Bld) [Volume fraction] 28.8 % Low 36.3-47.1 [facility] Comment on above: Performed By: #### B MPX, CDP #### [facility] [employer] [address] [place] [address] [employer]: Michael Chen MD Hemoglobin (Bld) [Mass/Vol] 8.8 g/dL Low 11.9-15.1 [facility] Comment on above: Performed By: #### B MPX, CDP #### [address] [address] [employer]: Michael Chen MD Immature granulocytes/100 WBC (Bld) 1 % High 0 [facility] Comment on above: Performed By: #### B MPX, CDP #### [address] [address] [employer]: Michael Chen MD Lymphocytes (Bld) [#/Vol] 1.15 10*3/uL Normal 1.10-3.70 [facility] Comment on above: Performed By: #### B MPX, CDP #### [address] [address] [employer]: Michael Chen MD Lymphocytes/100 WBC (Bld) 8 % Low 24-43 [facility] Comment on above: Performed By: #### B MPX, CDP #### [address] [address] [employer]: Michael Chen MD MCH (RBC) [Entitic mass] 29.6 pg Normal 25.2-33.5 [facility] Comment on above: Performed By: #### B MPX, CDP #### [facility] [address] [place] [address] [employer]: Michael Chen MD MCHC (RBC) [Mass/Vol] 30.6 g/dL Normal 28.4-34.[address] [facility] Comment on above: Performed By: #### B MPX, CDP #### [facility] [employer] [address] [place] [address] [employer]: Michael Chen MD MCV (RBC) [Entitic vol] 97.0 fL Normal 82.6-102.9 [facility] Comment on above: Performed By: #### B MPX, CDP #### [facility] [employer] [address] [place] [address] [employer]: Michael Chen MD Monocytes (Bld) [#/Vol] 0.77 10*3/uL Normal 0.10-1.20 [facility] Comment on above: Performed By: #### B MPX, CDP #### [address] [address] [employer]: Michael Chen MD Monocytes/100 WBC (Bld) 5 % Normal 3-12 [facility] Comment on above: Performed By: #### B MPX, CDP #### [address] [address] [employer]: Michael Chen MD Neutrophil (Seg) 85 % High 36-65 [facility] Comment on above: Performed By: #### B MPX, CDP #### [facility] [employer] [address] [place] [address] [employer]: Michael Chen MD NRBC Automated 0.0 per 100 WBC Normal 0.0 [facility] Comment on above: Performed By: #### B MPX, CDP #### [facility] [employer] [address] [place] [address] [employer]: Michael Chen MD Platelet mean volume (Bld) [Entitic vol] 9.1 fL Normal 8.1-13.5 [facility] Comment on above: Performed By: #### B MPX, CDP #### [address] [address] [employer]: Michael Chen MD Platelets (Bld) [#/Vol] 269 10*3/uL Normal 138-453 [facility] Comment on above: Performed By: #### B MPX, CDP #### [address] [address] [employer]: Michael Chen MD RBC (Bld) [#/Vol] 2.97 10*6/uL Low 3.95-5.11 [facility] Comment on above: Performed By: #### B MPX, CDP #### [address] [address] [employer]: Michael Chen MD WBC (Bld) [#/Vol] 14.9 10*3/uL High 3.5-11.3 [facility] Comment on above: Performed By: #### B MPX, CDP #### [address] [address] [employer]: Michael Chen MD Cult,Urineon 01-26-2024 Cult,Urine Specimen Description .INDWELLING CATH URINE Special Requests FIRST INSERTION Culture NO GROWTH Report Status FINAL 01/26/2024 Normal [facility] Comment on above: Performed By: #### U RC #### [address] [address] [employer]: Michael Chen MD XR CERVICAL SPINE (2-3 [...] DO 01/26/24 Edited Result - FINAL Normal [facility] Basic Metab w/rfx MGon 01-24 Anion gap [Moles/Vol] 9 mmol/L Normal 9-[address] [facility] Comment on above: Performed By: #### C DP BMPX #### [facility] [employer] [address] [place] [address] [employer]: Michael Chen MD Calcium [Mass/Vol] 7.9 mg/dL Low 8.6-10.4 [facility] Comment on above: Performed By: #### C DP, BMPX #### [facility] [address] [place] [address] [employer]: Michael Chen MD Chloride [Moles/Vol] 105 mmol/L Normal 98-107 [facility] Comment on above: Performed By: #### C DP, BMPX #### [facility] [employer] [address] [place] [phone] [employer]: Michael Chen MD CO2 [Moles/Vol] 22 mmol/L Normal 20-31 [facility] Comment on above: Performed By: #### C DP, BMPX #### [facility] [employer] [address] [place] [address] [employer]: Michael Chen MD Creatinine [Mass/Vol] 1.7 mg/dL High 0.50-0.[address] [facility] Comment on above: Performed By: #### C DP, BMPX #### [address] [address] [employer]: Michael Chen MD GFR/1.73 sq M.predicted among non-blacks MDRD (S/P/Bld) [Vol rate/Area] 33 mL/min/{1.73_m2} Low >60 [facility] Comment on above: Result Comment: [...] Performed By: #### C DP, BMPX #### [address] [address] [employer]: Michael Chen MD Glucose [Mass/Vol] 104 mg/dL High 74-99 [facility] Comment on above: Performed By: #### C DP, BMPX #### [facility] [employer] [address] [place] [address] [employer]: Michael Chen MD Potassium [Moles/Vol] 5.1 mmol/L Normal 3.7-5.[address] [facility] Comment on above: Performed By: #### C DP, BMPX #### [facility] [employer] [address] [place] [address] [employer]: Michael Chen MD Sodium [Moles/Vol] 136 mmol/L Normal 136-145 [facility] Comment on above: Performed By: #### C DP, BMPX #### [address] [address] [employer]: Michael Chen MD Urea nitrogen [Mass/Vol] 51 mg/dL High 8-23 [facility] Comment on above: Performed By: #### C DP, BMPX #### [place] [address] [employer]: Michael Chen MD CBC with Diffon 01-25-2024 Abs. Basophil <0.03 Normal 0.00-0.20 [facility] Comment on above: Performed By: #### C DP, BMPX #### [facility] [employer] [address] [place] [address] [employer]: Michael Chen MD Abs.Imm.Granulocyte 0.03 k/uL Normal 0.00-0.30 [facility] Comment on above: Performed By: #### C DP, BMPX #### [facility] [employer] [address] [place] [address] [employer]: Michael Chen MD Abs.Neutrophil (Seg) 3.64 k/uL Normal 1.50-8.10 [facility] Comment on above: Performed By: #### C DP, BMPX #### [place] [address] [employer]: Michael Chen MD Basophils/100 WBC (Bld) 0 % Normal 0-2 [facility] Comment on above: Performed By: #### C DP, BMPX #### [facility] [employer] [address] [place] [address] [employer]: Michael Chen MD Eosinophils (Bld) [#/Vol] 0.23 10*3/uL Normal 0.00-0.44 [facility] Comment on above: Performed By: #### C DP, BMPX #### [address] [address] [employer]: Michael Chen MD Eosinophils/100 WBC (Bld) 4 % Normal 1-4 [facility] Comment on above: Performed By: #### C DP, BMPX #### [address] [address] [employer]: Michael hCen MD Erythrocyte distribution width (RBC) [Ratio] 13.7 % Normal 11.8-14.4 [facility] Comment on above: Performed By: #### C DP, BMPX #### [address] [address] [employer]: Michael Chen MD Hematocrit (Bld) [Volume fraction] 26.8 % Low 36.3-47.1 [facility] Comment on above: Performed By: #### C DP, BMPX #### [address] [address] [employer]: Michael Chen MD Hemoglobin (Bld) [Mass/Vol] 8.0 g/dL Low 11.9-15.1 [facility] Comment on above: Performed By: #### C DP, BMPX #### [address] [address] [employer]: Michael Chen MD Immature granulocytes/100 WBC (Bld) 1 % High 0 [facility] Comment on above: Performed By: #### C DP, BMPX #### [address] [address] [employer]: Michael Chen MD Lymphocytes (Bld) [#/Vol] 1.38 10*3/uL Normal 1.10-3.70 [facility] Comment on above: Performed By: #### C DP, BMPX #### [address] [address] [employer]: Michael Chen MD Lymphocytes/100 WBC (Bld) 24 % Normal 24-43 [facility] Comment on above: Performed By: #### C DP, BMPX #### [address] [address] [employer]: Michael Chen MD MCH (RBC) [Entitic mass] 29.3 pg Normal 25.2-33.5 [facility] Comment on above: Performed By: #### C DP, BMPX #### [address] [address] [employer]: Michael Chen MD MCHC (RBC) [Mass/Vol] 29.9 g/dL Normal 28.4-34.[address] [facility] Comment on above: Performed By: #### C DP, BMPX #### [address] [address] [employer]: Michael Chen MD MCV (RBC) [Entitic vol] 98.2 fL Normal 82.6-102.9 [facility] Comment on above: Performed By: #### C DP, BMPX #### [address] [address] [employer]: Michael Chen MD Monocytes (Bld) [#/Vol] 0.58 10*3/uL Normal 0.10-1.20 [facility] Comment on above: Performed By: #### C DP, BMPX #### [address] [address] [employer]: Michael Chen MD Monocytes/100 WBC (Bld) 10 % Normal 3-12 [facility] Comment on above: Performed By: #### C DP, BMPX #### [address] [address] [employer]: Michael Chen MD Neutrophil (Seg) 61 % Normal 36-65 [facility] Comment on above: Performed By: #### C DP, BMPX #### [address] [address] [employer]: Michael Chen MD NRBC Automated 0.0 per 100 WBC Normal 0.0 [facility] Comment on above: Performed By: #### C DP, BMPX #### [address] [address] [employer]: Michael Chen MD Platelet mean volume (Bld) [Entitic vol] 9.1 fL Normal 8.1-13.5 [facility] Comment on above: Performed By: #### C DP, BMPX #### [address] [address] [employer]: Michael Chen MD Platelets (Bld) [#/Vol] 227 10*3/uL Normal 138-453 [facility] Comment on above: Performed By: #### C DP, BMPX #### [address] [address] [employer]: Michael Chen MD RBC (Bld) [#/Vol] 2.73 10*6/uL Low 3.95-5.11 [facility] Comment on above: Performed By: #### C DP, BMPX #### [address] [address] [employer]: Michael Chen MD WBC (Bld) [#/Vol] 5.9 10*3/uL Normal 3.5-11.3 [facility] Comment on above: Performed By: #### C DP, BMPX #### [address] [address] [employer]: Michael Chen MD FLUORO FOR SURGICAL PROCEDUR ESon 01-25-2024 FLUORO FOR SURGICAL PROCEDURES Radiology exam is complete. No Radiologist dictation. Please follow up with ordering provider. Final result Normal [facility] Hgb/Hcton 01-25-2024 Hematocrit (Bld) [Volume fraction] 30.8 % Low 36.3-47.1 [facility] Comment on above: Performed By: #### B MPX, CDP #### [facility] [employer] [address] [place] [address] [employer]: Michael Chen MD Hemoglobin (Bld) [Mass/Vol] 9.5 g/dL Low 11.9-15.1 [facility] Comment on above: Performed By: #### B MPX, CDP #### [facility] [employer] [address] [place] [address] [employer]: Michael Chen MD Basic Metab w/rfx MGon 01-23 Anion gap [Moles/Vol] 10 mmol/L Normal 9-[address] [facility] Comment on above: Performed By: #### B MPX, CDP #### [facility] [employer] [address] [place] [address] 41920 [employer] Recorder: Michael Chen MD Calcium [Mass/Vol] 8.2 mg/dL Low 8.6-10.4 [facility] Comment on above: Performed By: #### B MPX, CDP #### [facility] [employer] [address] [place] [address] 48169 [employer] Recorder: Michael Chen MD Chloride [Moles/Vol] 104 mmol/L Normal 98-107 [facility] Comment on above: Performed By: #### B MPX, CDP #### [facility] [employer] [address] [place] [address] 39349 [employer] Recorder: Michael Chen MD CO2 [Moles/Vol] 22 mmol/L Normal 20-31 [facility] Comment on above: Performed By: #### B MPX, CDP #### [facility] [employer] [address] [place] [address] 43226 [employer] Recorder: Michael Chen MD Creatinine [Mass/Vol] 1.7 mg/dL High 0.50-0.[address] [facility] Comment on above: Performed By: #### B GERTRUDEX, CDP #### [facility] [employer] [address] [place] [address] 78032 [employer] Recorder: Michael Chen MD GFR/1.73 sq M.predicted among non-blacks MDRD (S/P/Bld) [Vol rate/Area] 34 mL/min/{1.73_m2} Low >60 [facility] Comment on above: Result Comment: [...] Performed By: #### B GERTRUDEX, CDP #### [facility] [employer] [address] [place] [address] 67173 [employer]: Michael Chen MD Glucose [Mass/Vol] 100 mg/dL High 74-99 [facility] Comment on above: Performed By: #### B GERTRUDEX, CDP #### [facility] [employer] [address] [place] [address] 54958 [employer] Recorder: Michael Chen MD Potassium [Moles/Vol] 4.9 mmol/L Normal 3.7-5.[address] [facility] Comment on above: Result Comment: SPEC IMEN SLIGHTLY HEMOLYZED, RESULTS MAY BE ADVERSELY AFFECTED. Performed By: #### B MPX, CDP #### [facility] [employer] [address] [place] [address] 30761 [employer] Recorder: iMchael Chen MD Sodium [Moles/Vol] 136 mmol/L Normal 136-145 [facility] Comment on above: Performed By: #### B MPX, CDP #### [employer] [address] [place] [address] 66484 [employer] Recorder: Michael Chen MD Urea nitrogen [Mass/Vol] 51 mg/dL High 8-23 [facility] Comment on above: Performed By: #### B MPX, CDP #### [address] [address] [employer]: Michael Chen MD CBC with Diffon 01-24-2024 Abs. Basophil 0.03 k/uL Normal 0.00-0.20 [facility] Comment on above: Performed By: #### B MPX, CDP #### [address] [address] [employer]: Michael Chen MD Abs.Imm.Granulocyte 0.11 k/uL Normal 0.00-0.30 [facility] Comment on above: Performed By: #### B MPX, CDP #### [address] [address] [employer] Recorder: Michael Chen MD Abs.Neutrophil (Seg) 3.73 k/uL Normal 1.50-8.10 [facility] Comment on above: Performed By: #### B MPX, CDP #### [address] [address] [employer]: Michael Chen MD Basophils/100 WBC (Bld) 1 % Normal 0-2 [facility] Comment on above: Performed By: #### B MPX, CDP #### [address] [address] [employer]: Michael Chen MD Eosinophils (Bld) [#/Vol] 0.24 10*3/uL Normal 0.00-0.44 [facility] Comment on above: Performed By: #### B MPX, CDP #### [address] [address] [employer]: Michael Chen MD Eosinophils/100 WBC (Bld) 4 % Normal 1-4 [facility] Comment on above: Performed By: #### B MPX, CDP #### [facility] [employer] [address] [place] [address] 12400 [employer] Recorder: Michael Chen MD Erythrocyte distribution width (RBC) [Ratio] 13.8 % Normal 11.8-14.4 [facility] Comment on above: Performed By: #### B MPX, CDP #### [facility] [employer] [address] [place] [address] 05661 [employer] Recorder: Michael Chen MD Hematocrit (Bld) [Volume fraction] 29.4 % Low 36.3-47.1 [facility] Comment on above: Performed By: #### B MPX, CDP #### [facility] [employer] [address] [place] [address] 59470 [employer] Recorder: Michael Chen MD Hemoglobin (Bld) [Mass/Vol] 9.2 g/dL Low 11.9-15.1 [facility] Comment on above: Performed By: #### B MPX, CDP #### [facility] [employer] [address] [place] [address] 74891 [employer] Recorder: Michael Chen MD Immature granulocytes/100 WBC (Bld) 2 % High 0 [facility] Comment on above: Performed By: #### B MPX, CDP #### [facility] [employer] [address] [place] [address] 10222 [employer] Recorder: Michael Chen MD Lymphocytes (Bld) [#/Vol] 1.63 10*3/uL Normal 1.10-3.70 [facility] Comment on above: Performed By: #### B MPX, CDP #### [facility] [employer] [address] [place] [address] 44351 [employer] Recorder: Michael Chen MD Lymphocytes/100 WBC (Bld) 25 % Normal 24-43 [facility] Comment on above: Performed By: #### B MPX, CDP #### [address] [address]239 [employer]order: Michael Chen MD MCH (RBC) [Entitic mass] 30.8 pg Normal 25.2-33.5 [facility] Comment on above: Performed By: #### B MPX, CDP #### [address] [address] [employer]: Michael Chen MD MCHC (RBC) [Mass/Vol] 31.3 g/dL Normal 28.4-34.[address] [facility] Comment on above: Performed By: #### B MPX, CDP #### [address] [address]60 [employer]: Michael Chen MD MCV (RBC) [Entitic vol] 98.3 fL Normal 82.6-102.9 [facility] Comment on above: Performed By: #### B MPX, CDP #### [address] [address]16 [employer]: Michael Chen MD Monocytes (Bld) [#/Vol] 0.74 10*3/uL Normal 0.10-1.20 [facility] Comment on above: Performed By: #### B MPX, CDP #### [address] [address]48 [employer]: Michael Chen MD Monocytes/100 WBC (Bld) 11 % Normal 3-12 [facility] Comment on above: Performed By: #### B MPX, CDP #### [address] [address] [employer]: Michael Chen MD Neutrophil (Seg) 57 % Normal 36-65 [facility] Comment on above: Performed By: #### B MPX, CDP #### [address] 6[address]67 [employer]order: Michael Chen MD NRBC Automated 0.0 per 100 WBC Normal 0.0 [facility] Comment on above: Performed By: #### B MPX, CDP #### [address] [address] [employer]: Michael Chen MD Platelet mean volume (Bld) [Entitic vol] 9.9 fL Normal 8.1-13.5 [facility] Comment on above: Performed By: #### B MPX, CDP #### [address] [address] [employer]: Michael Chen MD Platelets (Bld) [#/Vol] 234 10*3/uL Normal 138-453 [facility] Comment on above: Performed By: #### B MPX, CDP #### [address] [address] [employer]: Michael Chen MD RBC (Bld) [#/Vol] 2.99 10*6/uL Low 3.95-5.11 [facility] Comment on above: Performed By: #### B MPX, CDP #### [address] [address]508 [employer]order: Michael Chen MD WBC (Bld) [#/Vol] 6.5 10*3/uL Normal 3.5-11.3 [facility] Comment on above: Performed By: #### B MPX, CDP #### [address] [address] [employer] Recorder: Michael Chen MD REINALDO Screen w/reflexon 2023 REINALDO Screen Negative Normal NEG [facility] Comment on above: Performed By: #### B MPX, CDP #### [place] [address] [employer]: Michael Chen MD Anti-dsDNA <0.5 Normal <10.0 [facility] Comment on above: Result Comment: Reference Range: <10.0 Negative 10.0-15.0 Equivocal >15.0 Positive Performed By: #### B MPX, CDP #### [place] [address] [employer]: Michael Chen MD CHINA Screen 0.1 U/mL Normal <0.[address] [place] [address] Comment on above: Result Comment: Reference Range: <0.7 Negative 0.7-1.0 Equivocal >1.0 Positive [place] Screen includes U1RNP,RNP70,Sm,Ro(SS-A),La(SS-B),CENP,Scl-70,Elli-1 Performed By: #### B MPX, CDP #### [place] [address] [employer] Recorder: Michael Chen MD REINALDO Screen Negative Normal NEG [facility] Comment on above: Performed By: #### C DP, CMPX #### [place] [address] [employer] Recorder: Michael Chen MD Anti-dsDNA 0.7 IU/mL Normal <10.0 [facility] Comment on above: Result Comment: Reference Range: <10.0 Negative 10.0-15.0 Equivocal >15.0 Positive Performed By: #### C DP, CMPX #### [facility] [employer] [address] [place] [address] [employer] Recorder: Michael Chen MD CHINA Screen 0.2 U/mL Normal <0.[address] [place] [address] Comment on above: Result Comment: Reference Range: <0.7 Negative 0.7-1.0 Equivocal >1.0 Positive [place] Screen includes U1RNP,RNP70,Sm,Ro(SS-A),La(SS-B),CENP,Scl-70,Elli-1 Performed By: #### C DP, CMPX #### [facility] [employer] [address] [place] [address] 60710 [employer] Recorder: Michael Chen MD Anti CCPon 01-23-2024 Anti CCP 0.6 U/mL Normal 0.0-7.0 [facility] Comment on above: Result Comment: Reference Range: <7.0 Negative 7.0-10.0 Equivocal >10.0 Positive Performed By: #### B MPX, CDP #### [facility] [address] [place] [address] 60190 [employer] Recorder: Michael Chen MD Basic Metab w/rfx MGon 01-22 Anion gap [Moles/Vol] 8 mmol/L Low 9-16 [facility] Comment on above: Performed By: #### B MPX, CDP #### [facility] [address] [place] [address] 79520 [employer] Recorder: Michael Chen MD Calcium [Mass/Vol] 8.2 mg/dL Low 8.6-10.4 [facility] Comment on above: Performed By: #### B MPX, CDP #### [facility] [address] [place] [address] 29264 [employer] Recorder: Michael Chen MD Chloride [Moles/Vol] 106 mmol/L Normal 98-107 [facility] Comment on above: Performed By: #### B MPX, CDP #### [facility] [address] [place] [address] 42191 [employer] Recorder: Michael Chen MD CO2 [Moles/Vol] 21 mmol/L Normal 20-31 [facility] Comment on above: Performed By: #### B MPX, CDP #### [facility] [address] [place] [address] 30783 [employer] Recorder: Michael Chen MD Creatinine [Mass/Vol] 1.7 mg/dL High 0.50-0.90 [facility] Comment on above: Performed By: #### B MPX, CDP #### [facility] [employer] [address] [place] [address] 08524 [employer] Recorder: Michael Chen MD GFR/1.73 sq M.predicted among non-blacks MDRD (S/P/Bld) [Vol rate/Area] 33 mL/min/{1.73_m2} Low >60 [facility] Comment on above: Result Comment: [...] By: #### B MPX, CDP #### [facility] [address] [place] [address] 32666 [employer] Recorder: Michael Chen MD Glucose [Mass/Vol] 88 mg/dL Normal 74-99 [facility] Comment on above: Performed By: #### B MPX, CDP #### [facility] [employer] [address] [place] [address] 91844 [employer] Recorder: Michael Chen MD Potassium [Moles/Vol] 4.8 mmol/L Normal 3.7-5.[address] [facility] Comment on above: Performed By: #### B MPX, CDP #### [facility] [address] [place] [address] 04298 [employer] Recorder: Michael Chen MD Sodium [Moles/Vol] 135 mmol/L Low 136-145 [facility] Comment on above: Performed By: #### B MPX, CDP #### [facility] [address] [place] [address] 83959 [employer] Recorder: Michael Chen MD Urea nitrogen [Mass/Vol] 56 mg/dL High 8-23 [facility] Comment on above: Performed By: #### B MPX, CDP #### [facility] [address] [place] [address] 84416 [employer] Recorder: Michael Chen MD CBC with Diffon 01-23-2024 Abs. Basophil <0.03 Normal 0.00-0.20 [facility] Comment on above: Performed By: #### B MPX, CDP #### [facility] [address] [place] [address] [employer] Recorder: Michael Chen MD Abs.Imm.Granulocyte 0.03 k/uL Normal 0.00-0.30 [facility] Comment on above: Performed By: #### B MPX, CDP #### [facility] [address] [place] [address] [employer] Recorder: Michael Chen MD Abs.Neutrophil (Seg) 5.50 k/uL Normal 1.50-8.10 [facility] Comment on above: Performed By: #### B MPX, CDP #### [facility] [address] [place] [address] [employer] Recorder: Michael Chen MD Basophils/100 WBC (Bld) 0 % Normal 0-2 [facility] Comment on above: Performed By: #### B MPX, CDP #### [facility] [address] [place] [address] [employer] Recorder: Michael Chen MD Eosinophils (Bld) [#/Vol] 0.15 10*3/uL Normal 0.00-0.44 [facility] Comment on above: Performed By: #### B MPX, CDP #### [facility] [address] [place] [address] 53493 [employer] Recorder: Michael Chen MD Eosinophils/100 WBC (Bld) 2 % Normal 1-4 [facility] Comment on above: Performed By: #### B MPX, CDP #### [facility] [employer] [address] [place] [address] 26630 [employer] Recorder: Michael Chen MD Erythrocyte distribution width (RBC) [Ratio] 13.7 % Normal 11.8-14.4 [facility] Comment on above: Performed By: #### B MPX, CDP #### [facility] [employer] [address] [place] [address] 69905 [employer] Recorder: Michael Chen MD Hematocrit (Bld) [Volume fraction] 28.9 % Low 36.3-47.1 [facility] Comment on above: Performed By: #### B MPX, CDP #### [facility] [employer] [address] [place] [address] 97227 [employer] Recorder: Michael Chen MD Hemoglobin (Bld) [Mass/Vol] 8.6 g/dL Low 11.9-15.1 [facility] Comment on above: Performed By: #### B MPX, CDP #### [facility] [employer] [address] [place] [address] 41854 [employer] Recorder: Michael Chen MD Immature granulocytes/100 WBC (Bld) 0 % Normal 0 [facility] Comment on above: Performed By: #### B MPX, CDP #### [facility] [employer] [address] [place] [address] 91349 [employer] Recorder: Michael Chen MD Lymphocytes (Bld) [#/Vol] 1.07 10*3/uL Low 1.10-3.70 [facility] Comment on above: Performed By: #### B MPX, CDP #### [facility] [employer] [address] [place] [address] 25730 [employer] Recorder: Michael Chen MD Lymphocytes/100 WBC (Bld) 14 % Low 24-43 [facility] Comment on above: Performed By: #### B MPX, CDP #### [facility] [employer] [address] [place] [address] 31470 [employer] Recorder: Michael Chen MD MCH (RBC) [Entitic mass] 30.2 pg Normal 25.2-33.5 [facility] Comment on above: Performed By: #### B MPX, CDP #### [facility] [address] [place] [address] 40577 [employer] Recorder: Michael Chen MD MCHC (RBC) [Mass/Vol] 29.8 g/dL Normal 28.4-34.[address] [facility] Comment on above: Performed By: #### B MPX, CDP #### [address] [address] [employer] Recorder: Michael Chen MD MCV (RBC) [Entitic vol] 101.4 fL Normal 82.6-102.9 [facility] Comment on above: Performed By: #### B MPX, CDP #### [address] [address] [employer] Recorder: Michael Chen MD Monocytes (Bld) [#/Vol] 0.72 10*3/uL Normal 0.10-1.20 [facility] Comment on above: Performed By: #### B MPX, CDP #### [address] [address] [employer] Recorder: Michael Chen MD Monocytes/100 WBC (Bld) 10 % Normal 3-12 [facility] Comment on above: Performed By: #### B MPX, CDP #### [facility] [address] [place] [address] 10221 [employer] Recorder: Michael Chen MD Neutrophil (Seg) 74 % High 36-65 [facility] Comment on above: Performed By: #### B MPX, CDP #### [facility] [address] [place] [address] 67686 [employer] Recorder: Michael Chen MD NRBC Automated 0.0 per 100 WBC Normal 0.0 [facility] Comment on above: Performed By: #### B MPX, CDP #### [address] [address] [employer] Recorder: Michael Chen MD Platelet mean volume (Bld) [Entitic vol] 9.9 fL Normal 8.1-13.5 [facility] Comment on above: Performed By: #### B MPX, CDP #### [address] [address] [employer] Recorder: Michael Chen MD Platelets (Bld) [#/Vol] 292 10*3/uL Normal 138-453 [facility] Comment on above: Performed By: #### B MPX, CDP #### [address] [address] [employer] Recorder: Michael Chen MD RBC (Bld) [#/Vol] 2.85 10*6/uL Low 3.95-5.11 [facility] Comment on above: Performed By: #### B MPX, CDP #### [address] [address] [employer] Recorder: Michael Chen MD WBC (Bld) [#/Vol] 7.5 10*3/uL Normal 3.5-11.3 [facility] Comment on above: Performed By: #### B MPX, CDP #### [address] [address] [employer] Recorder: Michael Chen MD APTTon 01-22-2024 aPTT Coag (Bld) [Time] 29.1 s Normal 23.0-36.5 [facility] Comment on above: Result Comment: IV Heparin Therapy Range: 66.0-92.0 sec Performed By: #### C DP, CMPX #### [address] [address] [employer] Recorder: Michael Chen MD Basic Metab w/rfx MGon 01-21 Anion gap [Moles/Vol] 10 mmol/L Normal 9-[address] [facility] Comment on above: Performed By: #### C DP, CMPX #### [facility] [employer] [address] [place] [address] 26628 [employer] Recorder: Michael Chen MD Calcium [Mass/Vol] 8.3 mg/dL Low 8.6-10.4 [facility] Comment on above: Performed By: #### C DP, CMPX #### [facility] [employer] [address] [place] [address] 72125 [employer] Recorder: Michael Chen MD Chloride [Moles/Vol] 107 mmol/L Normal 98-107 [facility] Comment on above: Performed By: #### C DP, CMPX #### [facility] [address] [place] [address] 40169 [employer] Recorder: Michael Chen MD CO2 [Moles/Vol] 21 mmol/L Normal 20-31 [facility] Comment on above: Performed By: #### C DP, CMPX #### [facility] [address] [place] [address] 62418 [employer] Recorder: Michael Chen MD Creatinine [Mass/Vol] 1.8 mg/dL High 0.50-0.[address] [facility] Comment on above: Performed By: #### C DP, CMPX #### [facility] [address] [place] [address] 46067 [employer] Recorder: Michael Chen MD GFR/1.73 sq M.predicted among non-blacks MDRD (S/P/Bld) [Vol rate/Area] 32 mL/min/{1.73_m2} Low >60 [facility] Comment on above: Result Comment: [...] Performed By: #### C DP, CMPX #### [facility] [address] [place] [address] 85754 [employer] Recorder: Michael Chen MD Glucose [Mass/Vol] 86 mg/dL Normal 74-99 [facility] Comment on above: Performed By: #### C DP, CMPX #### [facility] [employer] [address] [place] [address] 91494 [employer] Recorder: Michael Chen MD Potassium [Moles/Vol] 4.1 mmol/L Normal 3.7-5.[address] [facility] Comment on above: Performed By: #### C DP, CMPX #### [facility] [employer] [address] [place] [address] 86985 [employer] Recorder: Michael Chen MD Sodium [Moles/Vol] 138 mmol/L Normal 136-145 [facility] Comment on above: Performed By: #### C DP, CMPX #### [facility] [address] [place] [address] 91794 [employer] Recorder: Michael Chen MD Urea nitrogen [Mass/Vol] 66 mg/dL High 8-23 [facility] Comment on above: Performed By: #### C DP, CMPX #### [facility] [address] [place] [address] 39801 [employer] Recorder: Michael Chen MD C-Reactive Proteinon 024 CRP [Mass/Vol] 31.7 mg/L High 0.0-5.0 [facility] Comment on above: Performed By: #### B MPX, CDP #### [facility] [address] [place] [address] 95169 [employer] Recorder: Michael Chen MD C3on 01-22-2024 C3 111 mg/dL Normal 90-180 [facility] Comment on above: Performed By: #### B MPX, CDP #### [place] [address] [employer] Recorder: Michael Chen MD C4on 01-22-2024 C4 21 mg/dL Normal 10-40 [facility] Comment on above: Performed By: #### B MPX, CDP #### [place] [address] [employer] Recorder: Michael Chen MD CBC with Diffon 01-22-2024 Abs. Basophil 0.00 k/uL Normal 0.00-0.20 [facility] Comment on above: Performed By: #### C DP, CMPX #### [place] [address] [employer] Recorder: Michael Chen MD Abs.Imm.Granulocyte 0.00 k/uL Normal 0.00-0.30 [facility] Comment on above: Performed By: #### C DP, CMPX #### [place] [address] [employer] Recorder: Michael Chen MD Abs.Neutrophil (Seg) 6.12 k/uL Normal 1.50-8.10 [facility] Comment on above: Performed By: #### C DP, CMPX #### [place] [address] [employer] Recorder: Michael Chen MD Basophils/100 WBC (Bld) 0 % Normal 0-2 [facility] Comment on above: Performed By: #### C DP, CMPX #### [place] [address] [employer] Recorder: Michael Chen MD Eosinophils (Bld) [#/Vol] 0.07 10*3/uL Normal 0.00-0.44 [facility] Comment on above: Performed By: #### C DP, CMPX #### [address] [address] [employer] Recorder: Michael Chen MD Eosinophils/100 WBC (Bld) 1 % Normal 1-4 [facility] Comment on above: Performed By: #### C DP, CMPX #### [address] [address] [employer] Recorder: Michael Chen MD Immature granulocytes/100 WBC (Bld) 0 % Normal 0 [facility] Comment on above: Performed By: #### C DP, CMPX #### [address] [address] [employer] Recorder: Michael Chen MD Lymphocytes (Bld) [#/Vol] 0.58 10*3/uL Low 1.10-3.70 [facility] Comment on above: Performed By: #### C DP, CMPX #### [address] [address] [employer]: Michael Chen MD Lymphocytes/100 WBC (Bld) 8 % Low 24-43 [facility] Comment on above: Performed By: #### C DP, CMPX #### [address] [address] [employer]: Michael Chen MD Monocytes (Bld) [#/Vol] 0.43 10*3/uL Normal 0.10-1.20 [facility] Comment on above: Performed By: #### C DP, CMPX #### [address] [address] [employer]: Michael Chen MD Monocytes/100 WBC (Bld) 6 % Normal 3-12 [facility] Comment on above: Performed By: #### C DP, CMPX #### [address] [address] [employer] Recorder: Michael Chen MD Morphology Pedro (Bld) [Interp] Normal Normal [facility] Comment on above: Performed By: #### C DP, CMPX #### [address] [address] [employer]: Michael Chen MD Neutrophil (Seg) 85 % High 36-65 [facility] Comment on above: Performed By: #### C DP, CMPX #### [address] [address] [employer] Recorder: Michael Chen MD Erythrocyte distribution width (RBC) [Ratio] 13.6 % Normal 11.8-14.4 [facility] Comment on above: Performed By: #### C DP, CMPX #### [address] [address] [employer] Recorder: Michael Chen MD Hematocrit (Bld) [Volume fraction] 30.3 % Low 36.3-47.1 [facility] Comment on above: Performed By: #### C DP, CMPX #### [address] [address] [employer]: Michael Chen MD Hemoglobin (Bld) [Mass/Vol] 9.3 g/dL Low 11.9-15.1 [facility] Comment on above: Performed By: #### C DP, CMPX #### [address] [address] [employer]: Michael Chen MD MCH (RBC) [Entitic mass] 30.8 pg Normal 25.2-33.5 [facility] Comment on above: Performed By: #### C DP, CMPX #### [address] [address] [employer] Recorder: Michael Chen MD MCHC (RBC) [Mass/Vol] 30.7 g/dL Normal 28.4-34.[address] [facility] Comment on above: Performed By: #### C DP, CMPX #### [address] [address] [employer] Recorder: Michael Chen MD MCV (RBC) [Entitic vol] 100.3 fL Normal 82.6-102.9 [facility] Comment on above: Performed By: #### C DP, CMPX #### [address] [address] [employer] Recorder: Michael Chen MD NRBC Automated 0.0 per 100 WBC Normal 0.0 [facility] Comment on above: Performed By: #### C DP, CMPX #### [address] [address] [employer] Recorder: Michael Chen MD Platelet mean volume (Bld) [Entitic vol] 9.6 fL Normal 8.1-13.5 [facility] Comment on above: Performed By: #### C DP, CMPX #### [address] [address] [employer]order: Michael Chen MD Platelets (Bld) [#/Vol] 329 10*3/uL Normal 138-453 [facility] Comment on above: Performed By: #### C DP, CMPX #### [address] [address] [employer]: Michael Chen MD RBC (Bld) [#/Vol] 3.02 10*6/uL Low 3.95-5.11 [facility] Comment on above: Performed By: #### C DP, CMPX #### [address] [address] [employer] Recorder: Michael Chen MD WBC (Bld) [#/Vol] 7.2 10*3/uL Normal 3.5-11.3 [facility] Comment on above: Performed By: #### C DP, CMPX #### [facility] [address] [place] [address] [employer] Recorder: Michael Chen MD CT CERVICAL SPINE WO CONTRLILIYA Ton 01-22-2024 CT CERVICAL SPINE WO CONTRAST [...] Anuj Paniagua MD 01/22/24 Final result Normal [facility] CT CHEST ABDOMEN PELVIS W CO NTRASTon 07-29-2024 CT CHEST ABDOMEN PELVIS W CONTRAST EXAMINATION: [...] Anuj Paniagua MD 01/22/24 Final result Normal [facility] CT HEAD WO CONTRASTon 2023 CT HEAD [...] Anuj Paniagua MD 01/22/24 Final result Normal [facility] CT LUMBAR SPINE BONY RECONST RUCTIONon 01-22-2024 [...] Anuj Paniagua MD 01/22/24 Final result Normal [facility] CT THORACIC SPINE BONY RECON STRUCTIONon 01-22-2024 [...] Anuj Paniagua MD 01/22/24 Final result Normal [facility] CTA HEAD NECK W CONTRASTon 0 01-22-2024 [...] Anuj Paniagua MD 01/22/24 Final result Normal [facility] Creatine Kinaseon 01-22-2024 CK [Catalytic activity/Vol] 38 U/L Normal 26-192 [facility] Comment on above: Performed By: #### B MPX, CDP #### [address] [address] [employer]: Michael Chen MD MRI BRAIN WO CONTRASTon [...] Shabbir Martin MD 01/22/24 Final result Normal [facility] MRI CERVICAL SPINE WO CONTRA STon 01-22-2024 [...] Kirby Adames MD 01/22/24 Final result Normal [facility] PTon 01-22-2024 INR Coag (PPP) [Relative time] 1.1 {INR} Normal [facility] Comment on above: Result Comment: Therapeutic Range: Moderate Anticoagulant Intensity: INR = 2.0-3.0 High Anticoagulant Intensity: INR = 2.5-3.5 Performed By: #### C DP, CMPX #### [employer] [address] [place] [address] [employer] Recorder: Michael Chen MD PT Coag (PPP) [Time] 14.2 s Normal 11.7-14.9 [facility] Comment on above: Performed By: #### C DP, CMPX #### [employer] [address] [place] [address] [employer] Recorder: Michael Chen MD RA Screenon 01-22-2024 RA Screen <10 Normal 0-13 [facility] Comment on above: Performed By: #### B MPX, CDP #### [facility] [address] [place] [address] [employer]: Michael Chen MD Sedimentation Rateon 024 Sedimentation Rate 11 mm/Hr Normal 0-30 [facility] Comment on above: Performed By: #### B MPX, CDP #### [employer] [address] [place] [address] [employer] Rec[employer]: Michael Chen MD Type + Screenon 01-22-2024 Type + Screen Sample Expiration 01/25/2024,2359 Arm Band Number [id number] ABO/Rh(D) A POSITIVE Antibody Screen NEGATIVE Normal [facility] Comment on above: Performed By: #### B MPX, CDP #### [employer] [address] [place] [address] [employer] Recorder: Michael Chen MD Uric Acidon 01-22-2024 Urate [Mass/Vol] 9.6 mg/dL High 2.4-5.7 [facility] Comment on above: Performed By: #### B MPX, CDP #### [employer] [address] [place] [address] [employer] Recorder: Michael Chen MD Vitamin D 25 OHon 01-22-2024 Vitamin D 25 OH 30.3 ng/mL Normal 30.0-100.0 [facility] Comment on above: Result Comment: Reference Range: Vitamin D status Range Deficiency <20 ng/mL Mild Deficiency 20-30 ng/mL Sufficiency 30-100 ng/mL Toxicity >100 ng/mL Performed By: #### B MPX, CDP #### [employer] [address] [place] [address] [employer] Recorder: Michael Chen MD XR CHEST (SINGLE VIEW FRONTA L)on 01-22-2024 XR CHEST (SINGLE VIEW FRONTAL) EXAMINATION: ONE XRAY VIEW OF THE CHEST 01/22/2024 10:06 am COMPARISON: Chest radiograph 09/30/2023 HISTORY: ORDERING SYSTEM PROVIDED HISTORY: pre-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 imaging technician PROVIDED HISTORY: Pre-op imaging FINDINGS: Lines/tubes: Right [...] Migel Price MD 01/22/24 Final result Normal [facility] Office Visiton 12-21-2023 Follow-up visit [id number] Loren Moser 1960 F Date Provider Department Center 12/21/2023 BENJIE LERMA YVONNE Barrios [facility] Family History Family history unknown: Yes Level of Service:12619 [place] OFFICE/OUTPATIENT ESTABLISHED MOD MDM 30 MIN Normal [facility] Orders Onlyon 12-21-2023 Orders Only [id number] Loren Moser 1960 F Date Provider Department Center 12/21/2023 MIKAYLA BURGER YVONNE Barrios [facility] Family History Family history unknown: Yes Normal [facility] Basic Metab w/rfx MGon 09-30 Anion gap [Moles/Vol] 8 mmol/L Low 9-16 [facility] Comment on above: Performed By: #### C DP, BMPX #### [facility] [address] [place] [address] [employer]order: Michael Chen MD Calcium [Mass/Vol] 8.1 mg/dL Low 8.6-10.4 [facility] Comment on above: Performed By: #### C DP, BMPX #### [address] [address] [employer] Recorder: Michael Chen MD Chloride [Moles/Vol] 101 mmol/L Normal 98-107 [facility] Comment on above: Performed By: #### C DP, BMPX #### [facility] [address] [place] [address] [employer] Recorder: Michael Chen MD CO2 [Moles/Vol] 23 mmol/L Normal 20-31 [facility] Comment on above: Performed By: #### C DP, BMPX #### [address] [address] [employer] Recorder: Michael Chen MD Creatinine [Mass/Vol] 1.5 mg/dL High 0.50-0.[address] [facility] Comment on above: Performed By: #### C DP, BMPX #### [address] [address] [employer] Recorder: Michael Chen MD GFR/1.73 sq M.predicted among non-blacks MDRD (S/P/Bld) [Vol rate/Area] 39 mL/min/{1.73_m2} Low >60 [facility] Comment on above: Result Comment: [...] Performed By: #### C DP, BMPX #### [address] [address] [employer] Recorder: Michael Chen MD Glucose [Mass/Vol] 100 mg/dL High 74-99 [facility] Comment on above: Performed By: #### C DP, BMPX #### [facility] [address] [place] [address] [employer] Recorder: Michael Chen MD Potassium [Moles/Vol] 4.4 mmol/L Normal 3.7-5.[address] [facility] Comment on above: Performed By: #### C DP, BMPX #### [facility] [address] [place] [address] [employer] Recorder: Michael Chen MD Sodium [Moles/Vol] 132 mmol/L Low 136-145 [facility] Comment on above: Performed By: #### C DP, BMPX #### [facility] [address] [place] [address] [employer] Recorder: Michael Chen MD Urea nitrogen [Mass/Vol] 56 mg/dL High 8-23 [facility] Comment on above: Performed By: #### C DP, BMPX #### [place] [address] [employer] Recorder: Michael Chen MD CBC with Diffon 10-01-2023 Abs. Basophil 0.03 k/uL Normal 0.00-0.20 [facility] Comment on above: Performed By: #### C DP, BMPX #### [facility] [address] [place] [address] [employer] Recorder: Michael Chen MD Abs.Imm.Granulocyte 0.05 k/uL Normal 0.00-0.30 [facility] Comment on above: Performed By: #### C DP, BMPX #### [facility] [address] [place] [address] [employer] Recorder: Michael Chen MD Abs.Neutrophil (Seg) 6.55 k/uL Normal 1.50-8.10 [facility] Comment on above: Performed By: #### C DP, BMPX #### [address] [address] [employer] Recorder: Michael Chen MD Basophils/100 WBC (Bld) 0 % Normal 0-2 [facility] Comment on above: Performed By: #### C DP, BMPX #### [address] [address] [employer] Recorder: Michael Chen MD Eosinophils (Bld) [#/Vol] 0.10 10*3/uL Normal 0.00-0.44 [facility] Comment on above: Performed By: #### C DP, BMPX #### [address] [address] [employer] Recorder: Michale Chen MD Eosinophils/100 WBC (Bld) 1 % Normal 1-4 [facility] Comment on above: Performed By: #### C DP, BMPX #### [address] [address] [employer] Recorder: Michael Chen MD Erythrocyte distribution width (RBC) [Ratio] 13.6 % Normal 11.8-14.4 [facility] Comment on above: Performed By: #### C DP, BMPX #### [facility] [address] [place] [address] [employer] Recorder: Michael Chen MD Hematocrit (Bld) [Volume fraction] 27.9 % Low 36.3-47.1 [facility] Comment on above: Performed By: #### C DP, BMPX #### [facility] [address] [place] [address] [employer] Recorder: Michael Chen MD Hemoglobin (Bld) [Mass/Vol] 8.4 g/dL Low 11.9-15.1 [facility] Comment on above: Performed By: #### C DP, BMPX #### [facility] [address] [place] [id number] [employer] Recorder: Michael Chen MD Immature granulocytes/100 WBC (Bld) 1 % High 0 [facility] Comment on above: Performed By: #### C DP, BMPX #### [address] [address] [employer] Recorder: Michael Chen MD Lymphocytes (Bld) [#/Vol] 0.94 10*3/uL Low 1.10-3.70 [facility] Comment on above: Performed By: #### C DP, BMPX #### [place] [address] [employer] Recorder: Michael Chen MD Lymphocytes/100 WBC (Bld) 11 % Low 24-43 [facility] Comment on above: Performed By: #### C DP, BMPX #### [place] [address] [employer] Recorder: Michael Chen MD MCH (RBC) [Entitic mass] 30.5 pg Normal 25.2-33.5 [facility] Comment on above: Performed By: #### C DP, BMPX #### [place] [address] [employer] Recorder: Michael Chen MD MCHC (RBC) [Mass/Vol] 30.1 g/dL Normal 28.4-34.[address] [facility] Comment on above: Performed By: #### C DP, BMPX #### [place] [address] [employer] Recorder: Michael Chen MD MCV (RBC) [Entitic vol] 101.5 fL Normal 82.6-102.9 [facility] Comment on above: Performed By: #### C DP, BMPX #### [address] [address] [employer] Recorder: Michael Chen MD Monocytes (Bld) [#/Vol] 0.54 10*3/uL Normal 0.10-1.20 [facility] Comment on above: Performed By: #### C DP, BMPX #### [address] [address] Computerized [employer] Recorder: Michael Chen MD Monocytes/100 WBC (Bld) 7 % Normal 3-12 [facility] Comment on above: Performed By: #### C DP, BMPX #### [place] [address] [employer] Recorder: Michael Chen MD Neutrophil (Seg) 80 % High 36-65 [facility] Comment on above: Performed By: #### C DP, BMPX #### [place] [address] [employer] Recorder: Michael Chen MD NRBC Automated 0.0 per 100 WBC Normal 0.0 [facility] Comment on above: Performed By: #### C DP, BMPX #### [place] [address] [employer] Recorder: Michael Chen MD Platelet mean volume (Bld) [Entitic vol] 8.9 fL Normal 8.1-13.5 [facility] Comment on above: Performed By: #### C DP, BMPX #### [place] [address] [employer] Recorder: Michael Chen MD Platelets (Bld) [#/Vol] 281 10*3/uL Normal 138-453 [facility] Comment on above: Performed By: #### C DP, BMPX #### [address] [address] [employer] Recorder: Michael Chen MD RBC (Bld) [#/Vol] 2.75 10*6/uL Low 3.95-5.11 [facility] Comment on above: Performed By: #### C DP, BMPX #### [facility] [address] [place] [address] [employer] Recorder: Michael Chen MD WBC (Bld) [#/Vol] 8.2 10*3/uL Normal 3.5-11.3 [facility] Comment on above: Performed By: #### C DP, BMPX #### [facility] [address] [place] [address] [employer] Recorder: Michael Chen MD Basic Metab w/rfx MGon 09-29 Anion gap [Moles/Vol] 12 mmol/L Normal 9-[address] [facility] Comment on above: Performed By: #### C DP, BMPX #### [facility] [address] [place] [address] [employer] Recorder: Michael Chen MD Calcium [Mass/Vol] 8.2 mg/dL Low 8.6-10.4 [facility] Comment on above: Performed By: #### C DP, BMPX #### [facility] [address] [place] [address] [employer] Recorder: Michael Chen MD Chloride [Moles/Vol] 103 mmol/L Normal 98-107 [facility] Comment on above: Performed By: #### C DP, BMPX #### [facility] [address] [place] [address] [employer] Recorder: Michael Chen MD CO2 [Moles/Vol] 23 mmol/L Normal 20-31 [facility] Comment on above: Performed By: #### C DP, BMPX #### [facility] [address] [place] [address] [employer] Recorder: Michael Chen MD Creatinine [Mass/Vol] 1.6 mg/dL High 0.50-0.[address] [facility] Comment on above: Performed By: #### C DP, BMPX #### [address] [address] [employer] Recorder: Michael Chen MD GFR/1.73 sq M.predicted among non-blacks MDRD (S/P/Bld) [Vol rate/Area] 35 mL/min/{1.73_m2} Low >60 [facility] Comment on above: Result Comment: [...] Performed By: #### C DP, BMPX #### [address] [address] [employer] Recorder: Michael Chen MD Glucose [Mass/Vol] 89 mg/dL Normal 74-99 [facility] Comment on above: Performed By: #### C DP, BMPX #### [address] [address] [employer] Recorder: Michael Chen MD Potassium [Moles/Vol] 4.6 mmol/L Normal 3.7-5.[address] [facility] Comment on above: Result Comment: SPEC IMEN SLIGHTLY HEMOLYZED, RESULTS MAY BE ADVERSELY AFFECTED. Performed By: #### C DP, BMPX #### [address] [address] [employer] Recorder: Michael Chen MD Sodium [Moles/Vol] 138 mmol/L Normal 136-145 [facility] Comment on above: Performed By: #### C DP, BMPX #### [facility] [address] [place] [address] [employer] Recorder: Michael Chen MD Urea nitrogen [Mass/Vol] 57 mg/dL High 8-23 [facility] Comment on above: Performed By: #### C DP, BMPX #### [facility] [address] [place] [address] [employer] Recorder: Michael Chen MD Brain Natri. Peptideon 09-29 Natriuretic peptide B (Bld) [Mass/Vol] 1428 pg/mL High 0-300 [facility] Comment on above: Result Comment: An a ge-independent cutoff point of 300 pg/ml has a 98% negative predictive value excluding acute heart failure. Performed By: #### C DP, BMPX #### [facility] [address] [place] [address] [employer] Recorder: Michael Chen MD Liver Profileon 09-30-2023 Albumin [Mass/Vol] 3.5 g/dL Normal 3.5-5.2 [facility] Comment on above: Performed By: #### C DP, BMPX #### [facility] [address] [place] [address] [employer] Recorder: Michael Chen MD Albumin/Glob Ratio 2.0 Normal 1.0-2.5 [facility] Comment on above: Performed By: #### C DP, BMPX #### [facility] [address] [place] [address] [employer] Recorder: Michael Chen MD Alkaline Phos 301 U/L High 35-104 [facility] Comment on above: Performed By: #### C DP, BMPX #### [facility] [address] [place] [address] [employer] Recorder: Michael Chen MD ALT [Catalytic activity/Vol] 17 U/L Normal 10-35 [facility] Comment on above: Performed By: #### C DP, BMPX #### [facility] [address] [place] [address] [employer] Recorder: Michael Chen MD AST [Catalytic activity/Vol] 33 U/L Normal 10-35 [facility] Comment on above: Result Comment: SPEC IMEN SLIGHTLY HEMOLYZED, RESULTS MAY BE ADVERSELY AFFECTED. Performed By: #### C DP, BMPX #### [facility] [address] [place] [address] [employer] Recorder: Michael Chen MD Bilirubin [Mass/Vol] 0.2 mg/dL Normal 0.00-1.20 [facility] Comment on above: Performed By: #### C DP, BMPX #### [facility] [address] [place] [address] [employer] Recorder: Michael Chen MD Bilirubin, Indirect 0.1 mg/dL Normal 0.0-1.0 [facility] Comment on above: Performed By: #### C DP, BMPX #### [facility] [address] [place] [address] [employer] Recorder: Michael Chen MD Bilirubin.indirect [Mass/Vol] mg/dL Normal 0.00-0.30 [facility] Comment on above: Performed By: #### C DP, BMPX #### [facility] [address] [place] [address] [employer] Recorder: Michael Chen MD Globulin (S) [Mass/Vol] 2.1 g/dL Normal [facility] Comment on above: Performed By: #### C DP, BMPX #### [facility] [address] [place] [address] [employer] Recorder: Michael Chen MD Protein [Mass/Vol] 5.6 g/dL Low 6.6-8.7 [facility] Comment on above: Performed By: #### C DP, BMPX #### [facility] [address] [place] [address] [employer] Recorder: Michael Chen MD Specimen Rejectionon 024 Reason for rejection Unable to perform t esting: Specimen clotted. Normal [facility] Comment on above: Performed By: #### C DP, BMPX #### [employer] [address] [place] [address] [employer] Recorder: Michael Chen MD Source of sample .BLOOD Normal [facility] Comment on above: Performed By: #### C DP, BMPX #### [employer] [address] [place], [place] [id number] [employer] Rec[employer]: Michael Chen MD Test ordered CDP Normal [facility] Comment on above: Performed By: #### C DP, BMPX #### [employer] [address] [place], [place] [id number] [employer] Recorder: Michael Chen MD XR CERVICAL SPINE (2-3 [...] MD 09/30/23 Final result Normal [facility] XR CHEST PORTABLEon 09-30-19 XR [...] MD 09/30/23 Final result Normal [facility] Absolute reticulocyte countO rdered By: [place] on 07-03-2023 Reticulocytes (Bld) [#/Vol] 0.039 10*6/uL 0.024-0.08 4 [facility] Basic Metabolic Panelon Creatinine Clr Calc Pharmacy 25.88 [facility] Comment on above: Performed By: #### V [id number], MG, BMP, JOSE, FE and TIBC, RETIC #### [address] GFR/1.73 sq M.predicted MDRD (S/P/Bld) [Vol rate/Area] 23.348 mL/min/{1.73_m2} Normal [facility] Comment on above: Performed By: #### V [id number], MG, BMP, JOSE, FE and TIBC, RETIC #### [facility] [address] [place] [address] [place] Calcium [Mass/volume] in Ser um or PlasmaOrdered By: Jim Randhawa on 07-03-2023 Calcium [Mass/Vol] 8.3 mg/dL Low 8.6-10.3 [facility] Comment on above: Performed By: #### V [id number], MG, BMP, JOSE, FE and TIBC, RETIC #### [facility] [address] [place] [address] [place] Carbon dioxide, total [Moles /volume] in Serum or PlasmaOrdered By: Jim Randhawa on 07-03-2023 CO2 [Moles/Vol] 20.4 mmol/L Low 21.0-31.0 [facility] Comment on above: Performed By: #### V [id number], MG, BMP, JOSE, FE and TIBC, RETIC #### [facility] [address] [place] [address] [place] Chloride [Moles/volume] in S andrea or PlasmaOrdered By: Jim Randhawa on 07-03-2023 Chloride [Moles/Vol] 106 mmol/L Normal 98-107 [facility] Comment on above: Performed By: #### V [id number], MG, BMP, JOSE, FE and TIBC, RETIC #### [facility] [address] [place] [address] [facility] Creatinine [Mass/volume] in Serum or PlasmaOrdered By: Jim Randhawa on 07-03-2023 Creatinine [Mass/Vol] 2.32 mg/dL High 0.60-1.20 [facility] Comment on above: Performed By: #### V [id number], MG, BMP, JOSE, FE and TIBC, RETIC #### [facility] [address] [place] [address] [facility] echo transthoracicon [facility] echo transthoracic [facility] Main Fay [address] [place] [address] Echocardiogram Signed Patient: Mabel Moser MR#: [id number] : 1960 Acct:[id number] Age/Sex: 63 / F ADM Date: 06/29/23 Loc: Room: [address] [place] [address] Type: DIS IN Attending Dr: Jim Randhawa DO Ordering Provider: Jim Randhawa DO Date of Service: 07/02/2301/16/859 [facility] echo transthoracic: swelling Copies to: MD Jim Meyer DO Weight: 189 lb Performed By: Judah Pinto [facility] BSA: 1.9 m2 BP: 112/75 [...] FS: 40.8 % Ao root area: 7.8 [id number] ap4: 8.4 cm TAPSE: 2.6 cm EDV(Teich): [...] mmHg RAP systole: 3.0 mmHg Transcribed By: SCAnna Performed At: 07/03/23 1155 Signed By: Benjie Leach MD 07/03/23 1445 [facility] Ferritin [Mass/volume] in Se rum or PlasmaOrdered By: Los Grissom on 07-03-2023 Ferritin [Mass/Vol] 71.9 ng/mL Normal 11.0-306.8 [facility] Comment on above: Performed By: #### V [id number], MG, BMP, JOSE, FE and TIBC, RETIC #### [facility] [address] Folate [Mass/volume] in Seru m or PlasmaOrdered By: Los Grissom on 07-03-2023 Folate [Mass/Vol] 11.1 ng/mL >5.9 [facility] Comment on above: Folate reference ran ge: >5.9 ng/mlThe WHO technical consultation on folate and vitamin [id number] has determined that folate concentrations lessthan 4 ng/ml are considered deficient. Glucose [Mass/volume] in Ser um or PlasmaOrdered By: Jim Randhawa on 07-03-2023 Glucose [Mass/Vol] 99 mg/dL Normal 70-100 [facility] Comment on above: ADA recommended refe rence rangeRandom Glucose Reference Range is dependent on time and content of last meal. Glucose of more than 200 mg/dL in a nonstressed, ambulatory subject supports the diagnosis of Diabetes Mellitus. Result Comment: [place] om Glucose Reference Range is dependent on time and content of last meal. Glucose of more than 200 mg/dL in a nonstressed, ambulatory subject supports the diagnosis of Diabetes Mellitus. ADA recommended reference range Performed By: #### V [id number], MG, BMP, JOSE, FE and TIBC, RETIC #### [facility] [address] Iron [Mass/volume] in Serum or PlasmaOrdered By: Los Grissom on 07-03-2023 Iron [Mass/Vol] 59 ug/dL Normal 50-212 [facility] Comment on above: Performed By: #### V [id number], MG, BMP, JOSE, FE and TIBC, RETIC #### [facility] [address] [place] [id number] [place] Iron and TIBC Profileon % Iron Saturation 22.8 % Normal 20-50 [facility] Comment on above: Performed By: #### V [id number], MG, BMP, JOSE, FE and TIBC, RETIC #### [facility] [address] [place] [id number] [facility] Total Iron Binding Capacity 259 ug/dL Normal 255-450 [facility] Comment on above: Performed By: #### V [id number], MG, BMP, JOSE, FE and TIBC, RETIC #### [facility] [address] Iron binding capacity [Mass/ volume] in Serum or PlasmaOrdered By: Los Grissom on 07-03-2023 Iron binding capacity [Mass/Vol] 259 ug/dL 255-450 [facility] Iron saturation [Mass Fracti on] in Serum or PlasmaOrdered By: Los Grissom on 07-03-2023 Iron saturation [Mass fraction] 22.8 % 20-50 [facility] Magnesium [Mass/volume] in S andrea or PlasmaOrdered By: Jim Randhawa on 07-03-2023 Magnesium [Mass/Vol] 2.0 mg/dL Normal 1.9-2.7 [facility] Comment on above: Performed By: #### V [id number], MG, BMP, JOSE, FE and TIBC, RETIC #### [facility] [address] [place] [address] No Panel InformationOrdered By: Jim Randhawa on 07-03-2023 Estimated GFR (CKD-EPI) 23.348 mL/Min [facility] Creatinine Clearance (Chem 25.88 [facility] Potassium [Moles/volume] in Serum or PlasmaOrdered By: Jim Randhawa on 07-03-2023 Potassium [Moles/Vol] 3.9 mmol/L Normal 3.5-5.1 [facility] Comment on above: Performed By: #### V [id number], MG, BMP, JOSE, FE and TIBC, RETIC #### [facility] [address] [place] [address] Reticulocyte Counton 024 Reticulocyte Number 0.039 10*6/uL Normal 0.024-0 .08 4 [facility] Comment on above: Result Comment: PERF ORMED BY: [place] [address] PATHOLOGIST [employer] LEASING MANAGER TANNER GAVIN M.D. Performed By: #### V [id number], MG, BMP, JOSE, FE and TIBC, RETIC #### [facility] [address] [place] [address] [place] Reticulocyte Percent 1.5 % Normal 0.5-1.5 [facility] Comment on above: Performed By: #### V [id number], MG, BMP, JOSE, FE and TIBC, RETIC #### [place] [address] [place] Reticulocytes/100 RBC Auto ( Bld)Ordered By: Los Grissom on 07-03-2023 Reticulocytes/100 RBC (Bld) 1.5 % 0.5-1.5 [facility] Serum or plasma anion gap de terminationOrdered By: Jim Randhawa on 07-03-2023 Anion gap [Moles/Vol] 11.5 mmol/L Normal 6.0-15.0 [facility] Comment on above: Performed By: #### V [id number], MG, BMP, JOSE, FE and TIBC, RETIC #### [place] [address] [place] Sodium [Moles/volume] in Ser um or PlasmaOrdered By: Jim Randhawa on 07-03-2023 Sodium [Moles/Vol] 134 mmol/L Low 136-145 [facility] Comment on above: Performed By: #### V [id number], MG, BMP, JOSE, FE and TIBC, RETIC #### [place] [address] [place] Transferrin [Mass/volume] in Serum or PlasmaOrdered By: Los Grissom on 07-03-2023 Transferrin [Mass/Vol] 185 mg/dL Low 203-362 [facility] Comment on above: Performed By: #### V [id number], MG, BMP, JOSE, FE and TIBC, RETIC #### [facility] [address] [place] [address] [place] Urea nitrogen [Mass/volume] in Serum or PlasmaOrdered By: Jim Randhawa on 07-03-2023 Urea nitrogen [Mass/Vol] 95 mg/dL High 7-25 [facility] Comment on above: Performed By: #### V [id number], MG, BMP, JOSE, FE and TIBC, RETIC #### [address] Vit. B12/Folate Profileon Folate 11.1 ng/mL Normal >5.9 [facility] Comment on above: Result Comment: [place] te reference range: >5.9 ng/ml The WHO technical consultation on folate and vitamin b12 deficiencies has determined that folate concentrations less than 4 ng/ml are considered deficient. PERFORMED BY: [place] [address] PATHOLOGIST [employer] LEASING MANAGER TANNER GAVIN M.D. Performed By: #### V [id number], MG, BMP, JOSE, FE and TIBC, RETIC #### [address] Vitamin B12 ser/plasOrdered By: Los Grissom on 07-03-2023 Cobalamin (Vitamin B12) [Mass/Vol] 3564 pg/mL High 180-914 [facility] Comment on above: Performed By: #### V [id number], MG, BMP, JOSE, FE and TIBC, RETIC #### [address] Basic Metabolic Panelon 0 Anion gap [Moles/Vol] 11.0 mmol/L Normal 6.0-15.0 [facility] Comment on above: Performed By: #### V [id number], MG, BMP, JOSE, FE and TIBC, RETIC #### [address] Calcium [Mass/Vol] 8.4 mg/dL Low 8.6-10.3 [facility] Comment on above: Performed By: #### V [id number], MG, BMP, JOSE, FE and TIBC, RETIC #### [address] Chloride [Moles/Vol] 104 mmol/L Normal 98-107 [facility] Comment on above: Performed By: #### V [id number], MG, BMP, JOSE, FE and TIBC, RETIC #### [facility] [address] CO2 [Moles/Vol] 20.2 mmol/L Low 21.0-31.0 [facility] Comment on above: Performed By: #### V [id number], MG, BMP, JOSE, FE and TIBC, RETIC #### [facility] [address] Creatinine [Mass/Vol] 2.31 mg/dL High 0.60-1.20 [facility] Comment on above: Performed By: #### V [id number], MG, BMP, JOSE, FE and TIBC, RETIC #### [facility] [address] Creatinine Clr Calc Pharmacy 26.22 [facility] Comment on above: Performed By: #### V [id number], MG, BMP, JOSE, FE and TIBC, RETIC #### [facility] [address] GFR/1.73 sq M.predicted MDRD (S/P/Bld) [Vol rate/Area] 23.469 mL/min/{1.73_m2} [facility] Comment on above: Performed By: #### V [id number], MG, BMP, JOSE, FE and TIBC, RETIC #### [address] Glucose [Mass/Vol] 89 mg/dL Normal 70-100 [facility] Comment on above: Result Comment: [place] Glucose Reference Range is dependent on time and content of last meal. Glucose of more than 200 mg/dL in a nonstressed, ambulatory subject supports the diagnosis of Diabetes Mellitus. ADA recommended reference range Performed By: #### V [id number], MG, BMP, JOSE, FE and TIBC, RETIC #### [facility] [address] Potassium [Moles/Vol] 4.2 mmol/L Normal 3.5-5.1 [facility] Comment on above: Performed By: #### V [id number], MG, BMP, JOSE, FE and TIBC, RETIC #### [facility] [address] Sodium [Moles/Vol] 131 mmol/L Low 136-145 [facility] Comment on above: Performed By: #### V [id number], MG, BMP, JOSE, FE and TIBC, RETIC #### [facility] [address] Urea nitrogen [Mass/Vol] 100 mg/dL High 7-25 [facility] Comment on above: Performed By: #### V [id number], MG, BMP, JOSE, FE and TIBC, RETIC #### [address] Erythrocyte distribution wid th Auto (RBC) [Ratio]Ordered By: Jim Randhawa on 07-02-2023 Erythrocyte distribution width (RBC) [Ratio] 14.2 % 11.9-15.3 [facility] Hematocrit Auto (Bld) [Volum e fraction]Ordered By: Jim Randhawa on 07-02-2023 Hematocrit (Bld) [Volume fraction] 25.0 % 34.0-46.4 [facility] Hemoglobin [Mass/volume] in BloodOrdered By: Jim Randhawa on 07-02-2023 Hemoglobin (Bld) [Mass/Vol] 8.4 g/dL 11.8-15.4 [facility] Hemogram CBC Without Diffon 07-02-2023 Erythrocyte distribution width (RBC) [Ratio] 14.2 % Normal 11.9-15.3 [facility] Comment on above: Performed By: #### V [id number], MG, BMP, JOSE, FE and TIBC, RETIC #### [address] Hematocrit (Bld) [Volume fraction] 25.0 % Low 34.0-46.4 [facility] Comment on above: Performed By: #### V [id number], MG, BMP, JOSE, FE and TIBC, RETIC #### [address] Hemoglobin (Bld) [Mass/Vol] 8.4 g/dL Low 11.8-15.4 [facility] Comment on above: Performed By: #### V [id number], MG, BMP, JOSE, FE and TIBC, RETIC #### [address] MCH (RBC) [Entitic mass] 32.3 pg Normal 24.7-34.3 [facility] Comment on above: Performed By: #### V [id number], MG, BMP, JOSE, FE and TIBC, RETIC #### [address] MCV (RBC) [Entitic vol] 96.6 fL Normal 80-100 [facility] Comment on above: Performed By: #### V [id number], MG, BMP, JOSE, FE and TIBC, RETIC #### [address] Mean Corpuscular HGB Conc 33.4 g/dL Normal 32.0-35.0 [facility] Comment on above: Performed By: #### V [id number], MG, BMP, JOSE, FE and TIBC, RETIC #### [address] Platelet mean volume (Bld) [Entitic vol] 7.7 fL Normal 6.3-10.7 [facility] Comment on above: Result Comment: PERF ORMED BY: [place] [address] PATHOLOGIST [employer] LEASING MANAGER TANNER GAVIN M.D. Performed By: #### V [id number], MG, BMP, JOSE, FE and TIBC, RETIC #### [address] Platelets (Bld) [#/Vol] 217 10*3/uL Normal 150-450 [facility] Comment on above: Performed By: #### V [id number], MG, BMP, JOSE, FE and TIBC, RETIC #### [facility] [address] RBC (Bld) [#/Vol] 2.59 10*6/uL Low 3.60-5.00 [facility] Comment on above: Performed By: #### V [id number], MG, BMP, JOSE, FE and TIBC, RETIC #### [facility] [address] WBC (Bld) [#/Vol] 6.1 10*3/uL Normal 3.8-11.6 [facility] Comment on above: Performed By: #### V [id number], MG, BMP, JOSE, FE and TIBC, RETIC #### [facility] [address] Leukocytes [#/volume] correc nicol for nucleated erythrocytes in Blood by Automated counOrdered By: Jim Randhawa on 07-02-2023 WBC corrected for nucl RBC Auto (Bld) [#/Vol] 6.1 10*3/uL 3.8-11.6 [facility] MCH Auto (RBC) [Entitic mass ]Ordered By: Jim Randhawa on 07-02-2023 MCH (RBC) [Entitic mass] 32.3 pg 24.7-34.3 [facility] MCHC Auto (RBC) [Mass/Vol]Or dered By: Jim Randhawa on 07-02-2023 MCHC (RBC) [Mass/Vol] 33.4 g/dL 32.0-35.0 [facility] MCV Auto (RBC) [Entitic vol] Ordered By: Jim Randhawa on 07-02-2023 MCV (RBC) [Entitic vol] 96.6 fL 80-100 [facility] Magnesiumon 07-02-2023 Magnesium [Mass/Vol] 2.1 mg/dL Normal 1.9-2.7 [facility] Comment on above: Result Comment: PERF ORMED BY: [place] [address] PATHOLOGIST [employer] LEASING MANAGER TANNER GAVIN M.D. Performed By: #### V [id number], MG, BMP, JOSE, FE and TIBC, RETIC #### [facility] [address] [place] [address] [place] Platelet mean volume Auto (B ld) [Entitic vol]Ordered By: Jim Randhawa on 07-02-2023 Platelet mean volume (Bld) [Entitic vol] 7.7 fL 6.3-10.7 [facility] Platelets Auto (Bld) [#/Vol] Ordered By: Jim Randhawa on 07-02-2023 Platelets (Bld) [#/Vol] 217 10*3/uL 150-450 [facility] RBC Auto (Bld) [#/Vol]Ordere d By: Jim Randhawa on 07-02-2023 RBC (Bld) [#/Vol] 2.59 10*6/uL 3.60-5.00 [facility] Basic Metabolic Panelon Anion gap [Moles/Vol] 11.9 mmol/L Normal 6.0-15.0 [facility] Comment on above: Order Comment: LINE DRAW Performed By: #### V [id number], MG, BMP, JOSE, FE and TIBC, RETIC #### [facility] [address] Calcium [Mass/Vol] 8.9 mg/dL Normal 8.6-10.3 [facility] Comment on above: Order Comment: LINE DRAW Performed By: #### V [id number], MG, BMP, JOSE, FE and TIBC, RETIC #### [facility] [address] [place] [address] [place] Chloride [Moles/Vol] 108 mmol/L High 98-107 [facility] Comment on above: Order Comment: LINE DRAW Performed By: #### V [id number], MG, BMP, JOSE, FE and TIBC, RETIC #### [facility] [address] [place] [address] [place] CO2 [Moles/Vol] 18.5 mmol/L Low 21.0-31.0 [facility] Comment on above: Order Comment: LINE DRAW Performed By: #### V [id number], MG, BMP, JOSE, FE and TIBC, RETIC #### [facility] [address] Creatinine [Mass/Vol] 2.63 mg/dL Significan t change up 0.60-1.20 [facility] Comment on above: Order Comment: LINE DRAW Performed By: #### V [id number], MG, BMP, JOSE, FE and TIBC, RETIC #### [facility] [address] Creatinine Clr Calc Pharmacy 23.09 [facility] Comment on above: Order Comment: LINE DRAW Performed By: #### V [id number], MG, BMP, JOSE, FE and TIBC, RETIC #### [facility] [address] GFR/1.73 sq M.predicted MDRD (S/P/Bld) [Vol rate/Area] 20.085 mL/min/{1.73_m2} [facility] Comment on above: Order Comment: LINE DRAW Performed By: #### V [id number], MG, BMP, JOSE, FE and TIBC, RETIC #### [address] Glucose [Mass/Vol] 128 mg/dL High 70-100 [facility] Comment on above: Order Comment: LINE DRAW Result Comment: [place] Glucose Reference Range is dependent on time and content of last meal. Glucose of more than 200 mg/dL in a nonstressed, ambulatory subject supports the diagnosis of Diabetes Mellitus. ADA recommended reference range Performed By: #### V [id number], MG, BMP, JOSE, FE and TIBC, RETIC #### [facility] [address] Potassium [Moles/Vol] 4.4 mmol/L Normal 3.5-5.1 [facility] Comment on above: Order Comment: LINE DRAW Performed By: #### V [id number], MG, BMP, JOSE, FE and TIBC, RETIC #### [address] Sodium [Moles/Vol] 134 mmol/L Low 136-145 [facility] Comment on above: Order Comment: LINE DRAW Performed By: #### V [id number], MG, BMP, JOSE, FE and TIBC, RETIC #### [address] Urea nitrogen [Mass/Vol] 104 mg/dL High 7-25 [facility] Comment on above: Order Comment: LINE DRAW Performed By: #### V [id number], MG, BMP, JOSE, FE and TIBC, RETIC #### [address] Magnesiumon 07-01-2023 Magnesium [Mass/Vol] 2.3 mg/dL Normal 1.9-2.7 [facility] Comment on above: Order Comment: LINE DRAW Result Comment: PERF ORMED BY: [place] [address] PATHOLOGIST [employer] LEASING MANAGER TANNER GAVIN M.D. Performed By: #### V [id number], MG, BMP, JOSE, FE and TIBC, RETIC #### [address] Basic Metabolic Panelon Anion gap [Moles/Vol] 14.6 mmol/L Normal 6.0-15.0 [facility] Comment on above: Performed By: #### V [id number], MG, BMP, JOSE, FE and TIBC, RETIC #### [address] Calcium [Mass/Vol] 8.6 mg/dL Normal 8.6-10.3 [facility] Comment on above: Performed By: #### V [id number], MG, BMP, JOSE, FE and TIBC, RETIC #### [address] Chloride [Moles/Vol] 109 mmol/L High 98-107 [facility] Comment on above: Performed By: #### V [id number], MG, BMP, JOSE, FE and TIBC, RETIC #### [facility] [address] CO2 [Moles/Vol] 15.0 mmol/L Low 21.0-31.0 [facility] Comment on above: Performed By: #### V [id number], MG, BMP, JOSE, FE and TIBC, RETIC #### [facility] [address] Creatinine [Mass/Vol] 3.16 mg/dL High 0.60-1.20 [facility] Comment on above: Performed By: #### V [id number], MG, BMP, JOSE, FE and TIBC, RETIC #### [facility] [address] Creatinine Clr Calc Pharmacy 19.26 [facility] Comment on above: Performed By: #### V [id number], MG, BMP, JOSE, FE and TIBC, RETIC #### [facility] [address] GFR/1.73 sq M.predicted MDRD (S/P/Bld) [Vol rate/Area] 16.114 mL/min/{1.73_m2} [facility] Comment on above: Performed By: #### V [id number], MG, BMP, JOSE, FE and TIBC, RETIC #### [facility] [address] Glucose [Mass/Vol] 79 mg/dL Normal 70-100 [facility] Comment on above: Result Comment: [place] Glucose Reference Range is dependent on time and content of last meal. Glucose of more than 200 mg/dL in a nonstressed, ambulatory subject supports the diagnosis of Diabetes Mellitus. ADA recommended reference range Performed By: #### V [id number], MG, BMP, JOSE, FE and TIBC, RETIC #### [facility] [address] Potassium [Moles/Vol] 4.6 mmol/L Normal 3.5-5.1 [facility] Comment on above: Performed By: #### V [id number], MG, BMP, JOSE, FE and TIBC, RETIC #### [address] Sodium [Moles/Vol] 134 mmol/L Low 136-145 [facility] Comment on above: Performed By: #### V [id number], MG, BMP, JOSE, FE and TIBC, RETIC #### [address] Urea nitrogen [Mass/Vol] 117 mg/dL High 7-25 [facility] Comment on above: Performed By: #### V [id number], MG, BMP, JOSE, FE and TIBC, RETIC #### [address] Magnesiumon 06-30-2023 Magnesium [Mass/Vol] 2.5 mg/dL Normal 1.9-2.7 [facility] Comment on above: Result Comment: PERF ORMED BY: [place] [address] PATHOLOGIST [employer] LEASING MANAGER TANNER GAVIN M.D. Performed By: #### V [id number], MG, BMP, JOSE, FE and TIBC, RETIC #### [address] CBC AUTO DIFFon 11-22-2022 BASO # 0.0 103/ul Normal 0.0-0.1 [facility] Comment on above: Performed By: #### C BC ####[facility] [address] [place] [address]Dr. Airam Tripathi Basophils/100 WBC (Bld) 0.6 % Normal 0.2-2.0 [facility] Comment on above: Performed By: #### C BC ####[facility] [address] [place] [address]Dr. Airam Tripathi EO # 0.1 103/ul Normal 0.0-0.7 [facility] Comment on above: Performed By: #### C BC ####[facility] [address] [place] [address]Dr. Airam Tripathi Eosinophils/100 WBC (Bld) 1.7 % Normal 0.9-7.0 [facility] Comment on above: Performed By: #### C BC ####[facility] [address] [place] [address]Dr. Airam Tripathi Erythrocyte distribution width (RBC) [Ratio] 15.2 % Critically high 11.0-15.0 [facility] Comment on above: Performed By: #### C BC ####[facility] [address] [place], [place] [address]Dr. Airam Tripathi Hematocrit (Bld) [Volume fraction] 31.6 % Critically low 36.0-48.0 [facility] Comment on above: Performed By: #### C BC ####[facility] [address] [place], [place] [address]Dr. Airam Tripathi Hemoglobin (Bld) [Mass/Vol] 9.9 g/dL Critically low 12.0-16.0 [facility] Comment on above: Performed By: #### C BC ####[facility] [address] [place], [place] [address]Dr. Airam Tripathi IG # 0.02 10e3/ul Normal 0.00-0.03 [facility] Comment on above: Performed By: #### C BC ####[facility] [address] [place], [place] [address]Dr. Airam Tripathi IG % 0.4 % Normal 0.0-0.5 [facility] Comment on above: Performed By: #### C BC ####[facility] [address] [place], [place] [address]Dr. Airam Tripathi LYMPH # 0.8 103/ul Critically low 1.2-3.8 [facility] Comment on above: Performed By: #### C BC ####[facility] [address] [place], [place] [address]Dr. Airam Tripathi Lymphocytes/100 WBC (Bld) 16.9 % Critically low 20.5-60.0 [facility] Comment on above: Performed By: #### C BC ####[facility] [address] [place] [address]Dr. Airam Tripathi MANUAL DIFF REQ NO Normal [facility] Comment on above: Performed By: #### C BC ####[facility] [address] [place] [id number]. Airam Tripathi MCH (RBC) [Entitic mass] 28.4 pg Normal 26.7-34.0 [facility] Comment on above: Performed By: #### C BC ####[facility] [address] [place], [place] [address]Dr. Airam Tripathi MCHC (RBC) [Mass/Vol] 31.3 g/dL Normal 29.9-35.2 [facility] Comment on above: Performed By: #### C BC ####[facility] Ruesxbffxk145[address] [place], [place] [address]Dr. Airam Tripathi MCV (RBC) [Entitic vol] 90.8 fL Normal 81.0-99.0 [facility] Comment on above: Performed By: #### C BC ####[facility] Bcfyzhbutm332[address] [place], [place] [address]Dr. Airam Tripathi MONO # 0.4 103/ul Normal 0.3-0.8 [facility] Comment on above: Performed By: #### C BC ####[facility] Epnkjknmap2115[address] [place], [place] [address]Dr. Airam Tripathi Monocytes/100 WBC (Bld) 8.9 % Normal 1.7-12.0 [facility] Comment on above: Performed By: #### C BC ####[facility] Cbzldsahej54[address] [place], [place] [address]Dr. Airam Tripathi NEUT # 3.4 103/ul Normal 1.4-6.5 The [facility] Comment on above: Performed By: #### C BC ####[facility] Hcdzgxuyke9617[address] [place], [place] [address]Dr. Airam Tripathi Neutrophils/100 WBC (Bld) 71.5 % Normal 43.0-75.0 The [facility] Comment on above: Performed By: #### C BC ####[facility] Qyfbvcsrtm[address] [place] [address]Dr. Airam Tripathi Platelet mean volume (Bld) [Entitic vol] 9.4 fL Critically low 9.5-13.5 [facility] Comment on above: Performed By: #### C BC ####[facility] Kvhplahgee[address] [place] [address]Dr. Airam Tripathi PLT 302 103/ul Normal 150-450 [facility] Comment on above: Performed By: #### C BC ####[facility] Zpjfufmuxg1916 [place] [address]Dr. Airam Tripathi RBC 3.48 106/ul Critically low 4.20-5.40 The [facility] Comment on above: Performed By: #### C BC ####[facility] Wfefhxgskb8649 [place] [address]Dr. Airam Tripathi WBC 4.7 103/ul Normal 4.0-11.0 The [facility] Comment on above: Performed By: #### C BC ####[facility] Pxtowgjgnw5308 [place] [address]Dr. Airam Tripathi PROF 14(COMP METB)on 023 Albumin [Mass/Vol] 3.4 g/dL Normal 3.4-5.0 [facility] Comment on above: Performed By: #### C MP ####[facility] Uvipaciyyc[address] [place], [place] [address]Dr. Airam Tripathi Albumin/Globulin [Mass ratio] 1.0 {ratio} Normal The [facility] Comment on above: Performed By: #### C MP ####[facility] Vimgglbayb[address] [place] [address]Dr. Airam Tripathi ALP [Catalytic activity/Vol] 123 U/L Critically high 46-116 The [facility] Comment on above: Performed By: #### C MP ####[facility] Svhdvgufam5[address] [place] [address]Dr. Airam Tripathi ALT [Catalytic activity/Vol] 24 U/L Normal 14-59 The [facility] Comment on above: Performed By: #### C MP ####[facility] Nlttkxocic6927 [place] [address]Dr. Airam Tripathi Anion gap [Moles/Vol] 12.1 mmol/L Normal Th e [facility] Comment on above: Performed By: #### C MP ####[facility] Yawiqdwdnx5757 [place] [address]Dr. Airam Tripathi AST [Catalytic activity/Vol] 30 U/L Normal 15-37 The [facility] Comment on above: Performed By: #### C MP ####[facility] Zakogualvf05364[address] [place], [place] [address]Dr. Airam Tripathi Bilirubin [Mass/Vol] 0.4 mg/dL Normal 0.2-1.0 [facility] Comment on above: Performed By: #### C MP ####[facility] Rwtprbzktk6411[address] [place], [place] [address]Dr. Selenaneil Tripathi Calcium [Mass/Vol] 8.9 mg/dL Normal 8.5-10.1 [facility] Comment on above: Performed By: #### C MP ####[facility] Rspyvbqfty140447 [address] [place], [place] [address]Dr. Airam Tripathi Chloride [Moles/Vol] 95 mmol/L Critically low 98-107 The [facility] Comment on above: Performed By: #### C MP ####[facility] Aunswymovj974[address] [place], [place] [address]Dr. Selenaneil Tripathi CO2 [Moles/Vol] 28.7 mmol/L Normal 21.0-32.0 The [facility] Comment on above: Performed By: #### C MP ####[facility] Jkhbcevhnt866[address] [place], [place] [address]Dr. Airam Tripathi Creatinine [Mass/Vol] 1.25 mg/dL Critically high 0.55-1.02 [facility] Comment on above: Performed By: #### C MP ####[facility] Vcuquntkxl390547 [address] [place], [place] [address]Dr. Selenaneil Deuce EGFR-AF QATARI 53 mL/min/1.73m2 Critically low >=60 The [facility] Comment on above: Performed By: #### C MP ####[facility] Fheaptanrk5[address] [place] [id number]. Airam Tripathi EGFR-NON AF QATARI 44 mL/min/1.73m2 Critically low >=60 [facility] Comment on above: Performed By: #### C MP ####[facility] Lugkthfcfl8434 [place] [id number]. Airam Tripathi Globulin (S) [Mass/Vol] 3.5 g/dL Normal [facility] Comment on above: Performed By: #### C MP ####[facility] Gobwxlhtor4418 [place] [address]Dr. Airam Tripathi Glucose [Mass/Vol] 89 mg/dL Normal 74-106 [facility] Comment on above: Performed By: #### C MP ####[facility] Swbaubtkpl1584 [place] [address]Dr. Airam Tripathi Potassium [Moles/Vol] 4.8 mmol/L Normal 3.5-5.1 [facility] Comment on above: Performed By: #### C MP ####[facility] Nzqsrulgky3970 [place] [address]Dr. Airam Tripathi Protein [Mass/Vol] 6.9 g/dL Normal 6.4-8.2 [facility] Comment on above: Performed By: #### C MP ####[facility] Velxpcwyri1839 [place] [address]Dr. Airam Tripathi Sodium [Moles/Vol] 131 mmol/L Critically low 136-145 Th [facility] Comment on above: Performed By: #### C MP ####[facility] Yreniveqdl3351 [place] [address]Dr. Airam Tripathi Urea nitrogen [Mass/Vol] 37.0 mg/dL Critically high 7.0-18.0 [facility] Comment on above: Performed By: #### C MP ####[facility] Mxlbsziamv[address] [place], [place] [address]Dr. Airam Tripathi Urea nitrogen/Creatinine [Mass ratio] 29.6 mg/mg Normal [facility] Comment on above: Performed By: #### C MP ####[facility] Slbkrzgbpt4657[address] [place], [place] [address]Dr. Airam Tripathi OSMOLALITYon 11-18-2022 Osmolality [Osmolality] 293 mosm/kg Normal 275-295 The [facility] Comment on above: Performed By: #### O SMO ####[facility] Oldsubpbxp8745[address] [place], [place] [address]Dr. Airam Tripathi BNPon 11-16-2022 Natriuretic peptide B (Bld) [Mass/Vol] 1142.0 pg/mL Critically high <=900.0 [facility] Comment on above: Performed By: #### B SURFBOARD MAKER ####[facility] Lcwepejcip895247 [address] [place], [place] [address]Dr. Airam Deuce CBC AUTO DIFFon 11-16-2022 BASO # 0.0 103/ul Normal 0.0-0.1 [facility] Comment on above: Performed By: #### C BC ####[facility] Zxmadcddcj215047 [address] [place], [place] [address]Dr. Airam Tripathi Basophils/100 WBC (Bld) 0.3 % Normal 0.2-2.0 [facility] Comment on above: Performed By: #### C BC ####[facility] Ycplxfbadf718047 [address] [place], [place] [address]Dr. Airam Tripathi EO # 0.3 103/ul Normal 0.0-0.7 [facility] Comment on above: Performed By: #### C BC ####[facility] Esngfpikuf646647 [address] [place], [place] [address]Dr. Selenaneil Tripathi Eosinophils/100 WBC (Bld) 4.6 % Normal 0.9-7.0 The [facility] Comment on above: Performed By: #### C BC ####[facility] Ieukbjiqtu214747 [address] [place], [place] [address]Dr. Airam Tripathi Erythrocyte distribution width (RBC) [Ratio] 16.1 % Critically high 11.0-15.0 [facility] Comment on above: Performed By: #### C BC ####[facility] Onlplsfejq074647 [address] [place], [place] [address]Dr. Airam Tripathi Hematocrit (Bld) [Volume fraction] 28.0 % Critically low 36.0-48.0 [facility] Comment on above: Performed By: #### C BC ####[facility] Wwrmiitnfy5[address] [place] [address]DrKianna Airam Tripathi Hemoglobin (Bld) [Mass/Vol] 8.9 g/dL Critically low 12.0-16.0 [facility] Comment on above: Performed By: #### C BC ####[facility] Wqztvdnvsz790[address] [place], [place] [address]DrKianna Airam Tripathi IG # 0.02 10e3/ul Normal 0.00-0.03 [facility] Comment on above: Performed By: #### C BC ####[facility] Yweqckncos660847 [address] [place], [place] [address]DrKianna Airam Deuce IG % 0.3 % Normal 0.0-0.5 [facility] Comment on above: Performed By: #### C BC ####[facility] Dlzzhgxatl245247 [address] [place], [place] [address]DrKianna Airam Deuce LYMPH # 1.5 103/ul Normal 1.2-3.8 The [facility] Comment on above: Performed By: #### C BC ####[facility] Jbjlzrxyqx702747 [address] [place], [place] [address]DrKianna Airam Tripathi Lymphocytes/100 WBC (Bld) 24.2 % Normal 20.5-60.0 [facility] Comment on above: Performed By: #### C BC ####[facility] Hckhjltjsw1545[address] [place], [place] [address]DrKianna Airam Deuce MANUAL DIFF REQ NO Normal The [facility] Comment on above: Performed By: #### C BC ####[facility] Hrqufxuhbk217447 [address] [place], [place] [address]DrKianna Airam Deuce MCH (RBC) [Entitic mass] 29.3 pg Normal 26.7-34.0 [facility] Comment on above: Performed By: #### C BC ####[facility] Csyqvqxpns7949[address] [place], [place] [address]DrKianna Airam Deuce MCHC (RBC) [Mass/Vol] 31.8 g/dL Normal 29.9-35.2 [facility] Comment on above: Performed By: #### C BC ####[facility] Jqyutpfyom8724 [place] [address]DrKianna Tripathi MCV (RBC) [Entitic vol] 92.1 fL Normal 81.0-99.0 The [facility] Comment on above: Performed By: #### C BC ####[facility] Hcshcqfjwr7769[address] [place], [place] [address]DrKianna Tripathi MONO # 0.6 103/ul Normal 0.3-0.8 The [facility] Comment on above: Performed By: #### C BC ####[facility] Sjhxnuzjwm0564[address] [place], [place] [address]DrKianna Tripathi Monocytes/100 WBC (Bld) 10.0 % Normal 1.7-12.0 The [facility] Comment on above: Performed By: #### C BC ####[facility] Dzrhecqukm1208[address] [place], [place] [address]DrKianna Tripathi NEUT # 3.7 103/ul Normal 1.4-6.5 The [facility] Comment on above: Performed By: #### C BC ####[facility] Vonwqyjpfd4567[address] [place], [place] [address]DrKianna Tripathi Neutrophils/100 WBC (Bld) 60.6 % Normal 43.0-75.0 The [facility] Comment on above: Performed By: #### C BC ####[facility] Ddgbulates1185[address] [place], [place] [address]DrKianna Tripathi Platelet mean volume (Bld) [Entitic vol] 9.1 fL Critically low 9.5-13.5 The [facility] Comment on above: Performed By: #### C BC ####[facility] Ontfdjlvyp735947 [address] [place], [place] [address]DrKianna Tripathi PLT 242 103/ul Normal 150-450 The [facility] Comment on above: Performed By: #### C BC ####[facility] Jfbixqivtr[address] [place], [place] [address]DrKianna Tripathi RBC 3.04 106/ul Critically low 4.20-5.40 [facility] Comment on above: Performed By: #### C BC ####[facility] Epinvyhpdi3100 [place] [address]Dr. Airam Deuce WBC 6.1 103/ul Normal 4.0-11.0 [facility] Comment on above: Performed By: #### C BC ####[facility] Wkvjgbembm6444 [place] [id number]. Selenaneil Tripathi CT STROKE HEAD WOon 11-17-19 CT STROKE HEAD WO Normal The [facility] PROF CHEM 8 (BAS METB)on Anion gap [Moles/Vol] 9.8 mmol/L Normal [facility] Comment on above: Performed By: #### B GERTRUDE, HSTROPN ####[facility] Jcknlpxraq5460 [place] [address]Dr. Airam Tripathi Calcium [Mass/Vol] 8.4 mg/dL Critically low 8.5-10.1 [facility] Comment on above: Performed By: #### B GERTRUDE, HSTROPN ####[facility] Pnidqsaptr8858 [place] [address]Dr. Airam Tripathi Chloride [Moles/Vol] 99 mmol/L Normal 98-107 [facility] Comment on above: Performed By: #### B GERTRUDE, HSTROPN ####[facility] Mlwhgkbcyq2567 [place] [address]Dr. Airam Tripathi CO2 [Moles/Vol] 28.3 mmol/L Normal 21.0-32.0 [facility] Comment on above: Performed By: #### B GERTRUDE, HSTROPN ####[facility] Ljkpimuefe7308 [place] [phone]. Airam Tripathi Creatinine [Mass/Vol] 1.40 mg/dL Critically high 0.55-1.02 [facility] Comment on above: Performed By: #### B GERTRUDE, HSTROPN ####[facility] Lmmucepqut8000 [place] [phone]. Airam Tripathi EGFR-AF QATARI 46 mL/min/1.73m2 Critically low >=60 [facility] Comment on above: Performed By: #### B GERTRUDE, HSTROPN ####[facility] Shfoppjpog4842 [place] [address]Dr. Airam Tripathi EGFR-NON AF QATARI 38 mL/min/1.73m2 Critically low >=60 [facility] Comment on above: Performed By: #### B GERTRUDE, HSTROPN ####[facility] Cyeornssqy3998 [place] [address]Dr. Airam Tripathi Glucose [Mass/Vol] 88 mg/dL Normal 74-106 The [facility] Comment on above: Performed By: #### B GERTRUDE, HSTROPN ####[facility] Uucrlaxoef713[address] [place], [place] [address]Dr. Airam Tripathi Potassium [Moles/Vol] 5.1 mmol/L Normal 3.5-5.1 [facility] Comment on above: Performed By: #### B GERTRUDE, HSTROPN ####[facility] Vifkslfdpo9058[address] [place], [place] [address]Dr. Airam Tripathi Sodium [Moles/Vol] 132 mmol/L Critically low 136-145 Th [facility] Comment on above: Performed By: #### B GERTRUDE, HSTROPN ####[facility] Wifnghjxaf0953 [place] [address]Dr. Airam Tripathi Urea nitrogen [Mass/Vol] 56.0 mg/dL Critically high 7.0-18.0 [facility] Comment on above: Performed By: #### B GERTRUDE, HSTROPN ####[facility] Rcvzqilbjw1039[address] [place], [place] [address]Dr. Airam Tripathi Urea nitrogen/Creatinine [Mass ratio] 40.0 mg/mg Normal [facility] Comment on above: Performed By: #### B GERTRUDE, HSTROPN ####[facility] Qliyxojpjy0620[address] [place], [place] [address]Dr. Airam Tripathi TROPONIN, HIGH SENSITIVITYon 11-16-2022 HSTROP 9.9 pg/mL Normal 4.0-51.3 The [facility] Comment on above: Result Comment: CUT- OFF POINTS HAVE BEEN ESTABLISHED BASED ON THE FOURTH UNIVERSAL DEFINITIONS OF MYOCARDIALINFARCTION. THE UPPER REFERENCE LIMIT (URL) OF TROPONIN, DEFINED THE 99TH PERCENTILE OFcTnI DISTRIBUTION IN A REFERENCE POPULATION, HAS BEEN CONFIRMED THE DECISION THRESHOLDFOR LA DIAGNOSIS. Performed By: #### B GERTRUDE, HSTROPN ####[facility] Madmzhhrld0512 [place] [address]Dr. Airam Tripathi XR CHEST 1 Von 11-16-2022 XR CHEST 1 V Normal [facility] CBC AUTO DIFFon 11-11-2022 BASO # 0.0 103/ul Normal 0.0-0.1 [facility] Comment on above: Performed By: #### C BC ####[facility] Tntdzmmtdl163147 [address] [place], [place] [address]Dr. Airam Tripathi Basophils/100 WBC (Bld) 0.4 % Normal 0.2-2.0 [facility] Comment on above: Performed By: #### C BC ####[facility] Xotcvscvje877847 [address] [place], [place] [address]Dr. Airam Tripathi EO # 0.4 103/ul Normal 0.0-0.7 The [facility] Comment on above: Performed By: #### C BC ####[facility] Figxvwpwgu317847 [address] [place], [place] [address]Dr. Airam Tripathi Eosinophils/100 WBC (Bld) 4.6 % Normal 0.9-7.0 [facility] Comment on above: Performed By: #### C BC ####[facility] Wvhimhjmzx969547 [address] [place], [place] [address]Dr. Airam Tripathi Erythrocyte distribution width (RBC) [Ratio] 15.8 % Critically high 11.0-15.0 The [facility] Comment on above: Performed By: #### C BC ####[facility] Tqcfdabbof0311[address] [place], [place] [address]Dr. Airam Tripathi Hematocrit (Bld) [Volume fraction] 30.3 % Critically low 36.0-48.0 [facility] Comment on above: Performed By: #### C BC ####[facility] Ycrouuvhsb019347 [address] [place], [place] [address]DrKianna Tripathi Hemoglobin (Bld) [Mass/Vol] 9.3 g/dL Critically low 12.0-16.0 [facility] Comment on above: Performed By: #### C BC ####[facility] Izmoinicmo7202 [place] [address]DrKianna Tripathi IG # 0.03 10e3/ul Normal 0.00-0.03 [facility] Comment on above: Performed By: #### C BC ####[facility] Vmvbsahiph70364[address] [place], [place] [address]DrKianna Tripathi IG % 0.4 % Normal 0.0-0.5 [facility] Comment on above: Performed By: #### C BC ####[facility] Ytbqmntmgu5410[address] [place], [place] [address]DrKianna Tripathi LYMPH # 2.0 103/ul Normal 1.2-3.8 The [facility] Comment on above: Performed By: #### C BC ####[facility] Ebeeffepto164647 [address] [place], [place] [address]DrKianna Tripathi Lymphocytes/100 WBC (Bld) 24.5 % Normal 20.5-60.0 [facility] Comment on above: Performed By: #### C BC ####[facility] Jnedmhacvy064647 [address] [place], [place] [address]DrKianna Tripathi MANUAL DIFF REQ NO Normal [facility] Comment on above: Performed By: #### C BC ####[facility] Ownqcntscg337147 [address] [place], [place] [address]DrKianna Tripathi MCH (RBC) [Entitic mass] 28.9 pg Normal 26.7-34.0 [facility] Comment on above: Performed By: #### C BC ####[facility] Ngwhiqyfir201647 [address] [place], [place] [address]DrKianna Tripathi MCHC (RBC) [Mass/Vol] 30.7 g/dL Normal 29.9-35.2 [facility] Comment on above: Performed By: #### C BC ####[facility] Pvdiykntoa3357[address] [place], [place] [address]DrKianna Tripathi MCV (RBC) [Entitic vol] 94.1 fL Normal 81.0-99.0 [facility] Comment on above: Performed By: #### C BC ####[facility] Yqlfjdwqmf1464[address] [place], [place] [address]DrKianna Airam Tripathi MONO # 0.7 103/ul Normal 0.3-0.8 [facility] Comment on above: Performed By: #### C BC ####[facility] Bgfnalpgxc0158[address] [place], [place] [address]Dr. Airam Deuce Monocytes/100 WBC (Bld) 8.3 % Normal 1.7-12.0 [facility] Comment on above: Performed By: #### C BC ####[facility] Cgaexvfhxk880247 [address] [place], [place] [address]Dr. Airam Tripathi NEUT # 5.0 103/ul Normal 1.4-6.5 [facility] Comment on above: Performed By: #### C BC ####[facility] Alwbgcjhqr69364[address] [place], [place] [address]Dr. Airam Tripathi Neutrophils/100 WBC (Bld) 61.8 % Normal 43.0-75.0 [facility] Comment on above: Performed By: #### C BC ####[facility] Ywhntruapg3015[address] [place], [place] [address]DrKianna Airam Tripathi Platelet mean volume (Bld) [Entitic vol] 9.4 fL Critically low 9.5-13.5 The [facility] Comment on above: Performed By: #### C BC ####[facility] Euqzkjzpef486[address] [place], [place] [address]Dr. Airam Deuce PLT 270 103/ul Normal 150-450 [facility] Comment on above: Performed By: #### C BC ####[facility] Chncgtjfwc780947 [address] [place], [place] [address]Dr. Airam Deuce RBC 3.22 106/ul Critically low 4.20-5.40 [facility] Comment on above: Performed By: #### C BC ####[facility] Doqonrhprk6337[address] [place], [place] [address]Dr. Airam Tripathi WBC 8.1 103/ul Normal 4.0-11.0 [facility] Comment on above: Performed By: #### C BC ####[facility] Xfotbhnbod4244 [place] [address]Dr. Airam Tripathi PROF 14(COMP METB)on 023 Albumin [Mass/Vol] 3.2 g/dL Critically low 3.4-5.0 [facility] Comment on above: Performed By: #### C MP ####[facility] Rpbigtbfbt226247 [address] [place], [place] [address]Dr. Airam Tripathi Albumin/Globulin [Mass ratio] 1.0 {ratio} Normal [facility] Comment on above: Performed By: #### C MP ####[facility] Trreqpzzxn181447 [address] [place], [place] [address]Dr. Airam Tripathi ALP [Catalytic activity/Vol] 108 U/L Normal 46-116 [facility] Comment on above: Performed By: #### C MP ####[facility] Zlfdkkqtiv995447 [address] [place], [place] [address]Dr. Airam Tripathi ALT [Catalytic activity/Vol] 30 U/L Normal 14-59 [facility] Comment on above: Performed By: #### C MP ####[facility] Jbdzkloqau7589[address] [place], [place] [address]Dr. Airam Tripathi Anion gap [Moles/Vol] 12.8 mmol/L Normal [facility] Comment on above: Performed By: #### C MP ####[facility] Otsfldhjjd3824[address] [place], [place] [address]Dr. Airam Tripathi AST [Catalytic activity/Vol] 33 U/L Normal 15-37 [facility] Comment on above: Performed By: #### C MP ####[facility] Ynpnacwkmb814[address] [place], [place] [address]Dr. Airam Tripathi Bilirubin [Mass/Vol] 0.2 mg/dL Normal 0.2-1.0 [facility] Comment on above: Performed By: #### C MP ####[facility] Ucpifiyvtf2632[address] [place], [place] [address]Dr. Airam Tripathi Calcium [Mass/Vol] 8.3 mg/dL Critically low 8.5-10.1 Th e [facility] Comment on above: Performed By: #### C MP ####[facility] Ldryvuqofi[address] [place] [address]Dr. Airam Tripathi Chloride [Moles/Vol] 99 mmol/L Normal 98-107 [facility] Comment on above: Performed By: #### C MP ####[facility] Nwcwkkiqtg9987[address] [place], [place] [address]Dr. Airam Tripathi CO2 [Moles/Vol] 27.6 mmol/L Normal 21.0-32.0 [facility] Comment on above: Performed By: #### C MP ####[facility] Hfxlvimpkh2610[address] [place], [place] [address]Dr. Airam Tripathi Creatinine [Mass/Vol] 2.01 mg/dL Critically high 0.55-1.02 [facility] Comment on above: Performed By: #### C MP ####[facility] Ffjviqcxol80[address] [place], [place] [address]Dr. Airam Tripathi EGFR-AF QATARI 31 mL/min/1.73m2 Critically low >=60 [facility] Comment on above: Performed By: #### C MP ####[facility] Mtytnqfnlv114[address] [place], [place] [address]Dr. Airam Tripathi EGFR-NON AF QATARI 25 mL/min/1.73m2 Critically low >=60 [facility] Comment on above: Performed By: #### C MP ####[facility] Bqevhjaabm135[address] [place], [place] [address]Dr. Airam Tripathi Globulin (S) [Mass/Vol] 3.2 g/dL Normal [facility] Comment on above: Performed By: #### C MP ####[facility] Guqbsvxumo125[address] [place], [place] [address]Dr. Airam Tripathi Glucose [Mass/Vol] 158 mg/dL Critically high 74-106 T [facility] Comment on above: Performed By: #### C MP ####[facility] Awwhhzeqcr84[address] [place], [place] [address]Dr. Airam Tripathi Potassium [Moles/Vol] 5.4 mmol/L Critically high 3.5-5.1 [facility] Comment on above: Performed By: #### C MP ####[facility] Hgiupvxtqf[address] [place] [address]Dr. Airam Tripathi Protein [Mass/Vol] 6.4 g/dL Normal 6.4-8.2 [facility] Comment on above: Performed By: #### C MP ####[facility] Xecdauygrv[address] [place], [place] [address]Dr. Airam Tripathi Sodium [Moles/Vol] 134 mmol/L Critically low 136-145 Th [facility] Comment on above: Performed By: #### C MP ####[facility] Odjrcashfi[address] [place], [place] [address]Dr. Airam Tripathi Urea nitrogen [Mass/Vol] 52.0 mg/dL Critically high 7.0-18.0 [facility] Comment on above: Performed By: #### C MP ####[facility] Chjeupcfmp[address] [place], [place] [address]Dr. Airam Tripathi Urea nitrogen/Creatinine [Mass ratio] 25.9 mg/mg Normal [facility] Comment on above: Performed By: #### C MP ####[facility] Rzqcnqeqpf18[address] [place], [place] [address]Dr. Airam Tripathi OSMOLALITYon 11-06-2022 Osmolality [Osmolality] 261 mosm/kg Critically low 275-295 [facility] Comment on above: Performed By: #### O SMO ####[facility] Ucqciuxrlu[address] [place], [place] [address]Dr. Airam Tripathi XR HIPS GUMARO 3_4V WO PELVISon 11-04-2022 XR HIPS GUMARO 3_4V WO PELVIS Normal The [facility] XR KNEE LT 4V or >on 023 XR KNEE LT 4V or > Normal The [facility] BNPon 11-03-2022 Natriuretic peptide B (Bld) [Mass/Vol] 1168.0 pg/mL Critically high <=900.0 [facility] Comment on above: Performed By: #### B SURFBOARD MAKER, BMP ####[facility] Sdtrlmdiqt32[address] [place], [place] [address]Dr. Airam Tripathi CBC AUTO DIFFon 11-03-2022 BASO # 0.0 103/ul Normal 0.0-0.1 The [facility] Comment on above: Performed By: #### C BC ####[facility] Giglflanlx6[address] [place] [phone]. Airam Tripathi Basophils/100 WBC (Bld) 0.3 % Normal 0.2-2.0 The [facility] Comment on above: Performed By: #### C BC ####[facility] Qwghhlgqud4485 [place] [address]Dr. Airam Tripathi EO # 0.2 103/ul Normal 0.0-0.7 The [facility] Comment on above: Performed By: #### C BC ####[facility] Gqlcybbqbc9228 [place] [address]Dr. Airam Deuce Eosinophils/100 WBC (Bld) 1.9 % Normal 0.9-7.0 The [facility] Comment on above: Performed By: #### C BC ####[facility] Ebozutjvxo5[address] [place] [address]Dr. Airam Tripathi Erythrocyte distribution width (RBC) [Ratio] 15.2 % Critically high 11.0-15.0 The [facility] Comment on above: Performed By: #### C BC ####[facility] Gfpdvluyqm5344 [place] [address]Dr. Airam Tripathi Hematocrit (Bld) [Volume fraction] 34.3 % Critically low 36.0-48.0 The [facility] Comment on above: Performed By: #### C BC ####[facility] Dnfeqibqap8[address] [place] [address]Dr. Airam Tripathi Hemoglobin (Bld) [Mass/Vol] 11.0 g/dL Critically low 12.0-16.0 The [facility] Comment on above: Performed By: #### C BC ####[facility] Lnhppldeny6[address] [place] [address]Dr. Airam Tripathi IG # 0.06 10e3/ul Critically high 0.00-0.03 The [facility] Comment on above: Performed By: #### C BC ####[facility] Lhnsbmmivt24[address] [place] [phone]. Airam Tripathi IG % 0.5 % Normal 0.0-0.5 [facility] Comment on above: Performed By: #### C BC ####[facility] Scdpyujlfv5573 [place] [phone]. Airam Tripathi LYMPH # 2.3 103/ul Normal 1.2-3.8 The [facility] Comment on above: Performed By: #### C BC ####[facility] Ciuhxbtxuo54[address] [place] [phone]. Airam Tripathi Lymphocytes/100 WBC (Bld) 20.4 % Critically low 20.5-60.0 [facility] Comment on above: Performed By: #### C BC ####[facility] Xdfwcixrsh17[address] [place] [address]Dr. Airam Tripathi MANUAL DIFF REQ NO Normal The [facility] Comment on above: Performed By: #### C BC ####[facility] Fczkzigozs35[address] [place] [phone]. Airam Tripathi MCH (RBC) [Entitic mass] 28.7 pg Normal 26.7-34.0 The [facility] Comment on above: Performed By: #### C BC ####[facility] Bkyxqjtzcm5[address] [place] [phone]. Airam Tripathi MCHC (RBC) [Mass/Vol] 32.1 g/dL Normal 29.9-35.2 The [facility] Comment on above: Performed By: #### C BC ####[facility] Rimtvxyiyk6[address] [place], [place] [address]Dr. Airam Tripathi MCV (RBC) [Entitic vol] 89.6 fL Normal 81.0-99.0 The [facility] Comment on above: Performed By: #### C BC ####[facility] Uukmhzgqog30[address] [place] [phone]. Airam Tripathi MONO # 0.9 103/ul Critically high 0.3-0.8 The [facility] Comment on above: Performed By: #### C BC ####[facility] Mrbxnrvjow6260 [place] [phone]. Airam Tripathi Monocytes/100 WBC (Bld) 8.3 % Normal 1.7-12.0 The [facility] Comment on above: Performed By: #### C BC ####[facility] Fdxcyrufss3806 [place] [phone]. Airam Tripathi NEUT # 7.8 103/ul Critically high 1.4-6.5 The [facility] Comment on above: Performed By: #### C BC ####[facility] Htjvecimgv9185 [place] [phone]. Airam Tripathi Neutrophils/100 WBC (Bld) 68.6 % Normal 43.0-75.0 The [facility] Comment on above: Performed By: #### C BC ####[facility] Reegpyhuia9030 [place] [address]Dr. Airam Tripathi Platelet mean volume (Bld) [Entitic vol] 8.9 fL Critically low 9.5-13.5 The [facility] Comment on above: Performed By: #### C BC ####[facility] Bhdlfdcytl8495 [place] [phone]. Airam Tripathi PLT 323 103/ul Normal 150-450 The [facility] Comment on above: Performed By: #### C BC ####[facility] Kbpimjourw6409 [place] [address]Dr. Airam Tripathi RBC 3.83 106/ul Critically low 4.20-5.40 The [facility] Comment on above: Performed By: #### C BC ####[facility] Pczraswzfp[address] [place], [place] [address]Dr. Airam Tripathi WBC 11.4 103/ul Critically high 4.0-11.0 The [facility] Comment on above: Performed By: #### C BC ####[facility] Soearapgvs44[address] [place], [place] [address]Dr. Airam Tripathi BASO # 0.0 103/ul Normal 0.0-0.1 The [facility] Comment on above: Performed By: #### C BC ####[facility] Sgdczmorsi01[address] [place], [place] [address]Dr. Airam Tripathi Basophils/100 WBC (Bld) 0.2 % Normal 0.2-2.0 The [facility] Comment on above: Performed By: #### C BC ####[facility] Nlzbqacdqi3538[address] [place], [place] [address]Dr. Airam Tripathi EO # 0.1 103/ul Normal 0.0-0.7 The [facility] Comment on above: Performed By: #### C BC ####[facility] Duajslsbva9723[address] [place], [place] [address]Dr. Airam Tripathi Eosinophils/100 WBC (Bld) 0.7 % Critically low 0.9-7.0 The [facility] Comment on above: Performed By: #### C BC ####[facility] Nuluayhvch[address] [place], [place] [address]Dr. Airam Tripathi Erythrocyte distribution width (RBC) [Ratio] 15.4 % Critically high 11.0-15.0 The [facility] Comment on above: Performed By: #### C BC ####[facility] Nxpcbyjdhh457[address] [place], [place] [address]Dr. Airam Tripathi Hematocrit (Bld) [Volume fraction] 33.6 % Critically low 36.0-48.0 The [facility] Comment on above: Performed By: #### C BC ####[facility] Vnmkdfsozx34[address] [place], [place] [address]Dr. Airam Tripathi Hemoglobin (Bld) [Mass/Vol] 10.9 g/dL Critically low 12.0-16.0 The [facility] Comment on above: Performed By: #### C BC ####[facility] Bsdeevutlz4[address] [place], [place] [address]Dr. Airam Tripathi IG # 0.04 10e3/ul Critically high 0.00-0.03 The [facility] Comment on above: Performed By: #### C BC ####[facility] Kfgqrjqiqs3[address] [place], [place] [address]Dr. Airam Tripathi IG % 0.5 % Normal 0.0-0.5 The [facility] Comment on above: Performed By: #### C BC ####[facility] Kjbpxkywbu40[address] [place] [phone]. Airam Deuce LYMPH # 1.1 103/ul Critically low 1.2-3.8 The [facility] Comment on above: Performed By: #### C BC ####[facility] Yqlobmincx0448 [place] [phone]. Airam Deuce Lymphocytes/100 WBC (Bld) 13.3 % Critically low 20.5-60.0 The [facility] Comment on above: Performed By: #### C BC ####[facility] Orelekqscp1424 [place] [phone]. Selenaneil Tripathi MANUAL DIFF REQ NO Normal The [facility] Comment on above: Performed By: #### C BC ####[facility] Zhirbxygap6894 [place] [phone]. Airam Deuce MCH (RBC) [Entitic mass] 29.1 pg Normal 26.7-34.0 The [facility] Comment on above: Performed By: #### C BC ####[facility] Gckzyywjjf2144 [place] [phone]. Airam Tripathi MCHC (RBC) [Mass/Vol] 32.4 g/dL Normal 29.9-35.2 The [facility] Comment on above: Performed By: #### C BC ####[facility] Ishymlxuax6287 [place] [phone]. Airam Deuce MCV (RBC) [Entitic vol] 89.6 fL Normal 81.0-99.0 The [facility] Comment on above: Performed By: #### C BC ####[facility] Virsmqaydr9313 [place] [phone]. Airam Deuce MONO # 0.5 103/ul Normal 0.3-0.8 The [facility] Comment on above: Performed By: #### C BC ####[facility] Zrpvntemho1503 [place] [phone]. Selenaneil Tripathi Monocytes/100 WBC (Bld) 6.4 % Normal 1.7-12.0 The [facility] Comment on above: Performed By: #### C BC ####[facility] Zdnymlszvs3550 [place] [phone]. Airam Tripathi NEUT # 6.5 103/ul Normal 1.4-6.5 The [facility] Comment on above: Performed By: #### C BC ####[facility] Xccrwtmucw8731 [place] [phone]. Airam Tripathi Neutrophils/100 WBC (Bld) 78.9 % Critically high 43.0-75.0 The [facility] Comment on above: Performed By: #### C BC ####[facility] Silzegovqw8[address] [place] [phone]. Airam Tripathi Platelet mean volume (Bld) [Entitic vol] 9.4 fL Critically low 9.5-13.5 The [facility] Comment on above: Performed By: #### C BC ####[facility] Gucwhsywte0714 [place] [phone]. Airam Tripathi PLT 314 103/ul Normal 150-450 The [facility] Comment on above: Performed By: #### C BC ####[facility] Sybuckeaeb4853 [place] [phone]. Airam Tripathi RBC 3.75 106/ul Critically low 4.20-5.40 The [facility] Comment on above: Performed By: #### C BC ####[facility] Zbeqnkjscc7645 [place] [phone]. Airam Tripathi WBC 8.3 103/ul Normal 4.0-11.0 The [facility] Comment on above: Performed By: #### C BC ####[facility] Kfzextqlbk4452 [place] [phone]. Airam Tripathi CT HEAD WO CONon 11-03-2022 CT HEAD WO CON Normal The [facility] PROF 14(COMP METB)on 023 Albumin [Mass/Vol] 3.2 g/dL Critically low 3.4-5.0 Th e [facility] Comment on above: Performed By: #### C MP ####[facility] Nhecmpaaif[address] [place] [address]Dr. Airam Tripathi Albumin/Globulin [Mass ratio] 0.9 {ratio} Normal [facility] Comment on above: Performed By: #### C MP ####[facility] Ohbdhlcoex40[address] [place] [address]Dr. Airam Deuce ALP [Catalytic activity/Vol] 109 U/L Normal 46-116 [facility] Comment on above: Performed By: #### C MP ####[facility] Hytvgrpace64[address] [place] [address]Dr. Selenaneil Deuce ALT [Catalytic activity/Vol] 25 U/L Normal 14-59 The [facility] Comment on above: Performed By: #### C MP ####[facility] Gzuhfhsatk80[address] [place] [address]Dr. Airam Tripathi Anion gap [Moles/Vol] 10.9 mmol/L Normal Th e [facility] Comment on above: Performed By: #### C MP ####[facility] Oieaqdnfbe[address] [place], [place] [address]Dr. Airam Tripathi AST [Catalytic activity/Vol] 24 U/L Normal 15-37 The [facility] Comment on above: Performed By: #### C MP ####[facility] Uytlfmpxit[address] [place], [place] [address]Dr. Airam Tripathi Bilirubin [Mass/Vol] 0.3 mg/dL Normal 0.2-1.0 [facility] Comment on above: Performed By: #### C MP ####[facility] Myhrrdkmzx8[address] [place] [address]Dr. Airam Tripathi Calcium [Mass/Vol] 8.6 mg/dL Normal 8.5-10.1 The [facility] Comment on above: Performed By: #### C MP ####[facility] Nugobptrlj7539 [place] [address]Dr. Airam Tripathi Chloride [Moles/Vol] 95 mmol/L Critically low 98-107 The [facility] Comment on above: Performed By: #### C MP ####[facility] Ddfiurgeqz4961 [place] [address]Dr. Airam rTipathi CO2 [Moles/Vol] 27.8 mmol/L Normal 21.0-32.0 The [facility] Comment on above: Performed By: #### C MP ####[facility] Noyncysnmo1425 [place] [address]Dr. Airam Tripathi Creatinine [Mass/Vol] 1.07 mg/dL Critically high 0.55-1.02 [facility] Comment on above: Performed By: #### C MP ####[facility] Seqqpnrjgz8376 [place] [phone]. Airam Deuce EGFR-AF QATARI >60 Normal >=60 The [facility] Comment on above: Performed By: #### C MP ####[facility] Encmewsugd1666 [place] [address]Dr. Airam Deuce EGFR-NON AF QATARI 52 mL/min/1.73m2 Critically low >=60 [facility] Comment on above: Performed By: #### C MP ####[facility] Rxzawhbhen4397 [place] [address]Dr. Airam Deuce Globulin (S) [Mass/Vol] 3.5 g/dL Normal [facility] Comment on above: Performed By: #### C MP ####[facility] Wpjihpsjhh9870 [place] [address]Dr. Airam Deuce Glucose [Mass/Vol] 86 mg/dL Normal 74-106 [facility] Comment on above: Performed By: #### C MP ####[facility] Puopmflfxu6863 [place] [address]Dr. Airam Deuce Potassium [Moles/Vol] 4.7 mmol/L Normal 3.5-5.1 The [facility] Comment on above: Performed By: #### C MP ####[facility] Otftcfjdpl2357 [place] [address]Dr. Airam Tripathi Protein [Mass/Vol] 6.7 g/dL Normal 6.4-8.2 The [facility] Comment on above: Performed By: #### C MP ####[facility] Anynrypnkw3121 [place] [address]Dr. Airam Deuce Sodium [Moles/Vol] 129 mmol/L Critically low 136-145 Th [facility] Comment on above: Performed By: #### C MP ####[facility] Xspnlufytb9024 [place] [address]Dr. Airam Tripathi Urea nitrogen [Mass/Vol] 19.0 mg/dL Critically high 7.0-18.0 [facility] Comment on above: Performed By: #### C MP ####[facility] Ylhlavnuqy7710 [place] [address]Dr. Airam Tripathi Urea nitrogen/Creatinine [Mass ratio] 17.8 mg/mg Normal [facility] Comment on above: Performed By: #### C MP ####[facility] Spmjhmnlyv9439 [place] [address]Dr. Airam Tripathi PROF CHEM 8 (BAS METB)on Anion gap [Moles/Vol] 9.0 mmol/L Normal [facility] Comment on above: Performed By: #### B SURFBOARD MAKER, BMP ####[facility] Qypmlzwgwx[address] [place], [place] [address]Dr. Airam Tripathi Calcium [Mass/Vol] 8.5 mg/dL Normal 8.5-10.1 [facility] Comment on above: Performed By: #### B SURFBOARD MAKER, BMP ####[facility] Acevbbsiip7[address] [place], [place] [address]Dr. Airam Tripathi Chloride [Moles/Vol] 93 mmol/L Critically low 98-107 The [facility] Comment on above: Performed By: #### B SURFBOARD MAKER, BMP ####[facility] Vmeowhixsh06[address] [place], [place] [address]Dr. Airam Tripathi CO2 [Moles/Vol] 28.1 mmol/L Normal 21.0-32.0 The [facility] Comment on above: Performed By: #### B SURFBOARD MAKER, BMP ####[facility] Pyldrlmbju97[address] [place], [place] [address]Dr. Airam Tripathi Creatinine [Mass/Vol] 1.17 mg/dL Critically high 0.55-1.02 [facility] Comment on above: Performed By: #### B SURFBOARD MAKER, BMP ####[facility] Stvsdwfoep[address] [place], [place] [address]Dr. Airam Tripathi EGFR-AF QATARI 57 mL/min/1.73m2 Critically low >=60 [facility] Comment on above: Performed By: #### B SURFBOARD MAKER, BMP ####[facility] Hjrmugrbix[address] [place], [place] [address]Dr. Selenaneil Deuce EGFR-NON AF QATARI 47 mL/min/1.73m2 Critically low >=60 [facility] Comment on above: Performed By: #### B SURFBOARD MAKER, BMP ####[facility] Vinkohdmgf6[address] [place], [place] [address]Dr. Airam Tripathi Glucose [Mass/Vol] 107 mg/dL Critically high 74-106 T [facility] Comment on above: Performed By: #### B SURFBOARD MAKER, BMP ####[facility] Bokhxoveeq[address] [place], [place] [address]Dr. Airam Tripathi Potassium [Moles/Vol] 4.1 mmol/L Normal 3.5-5.1 [facility] Comment on above: Performed By: #### B SURFBOARD MAKER, BMP ####[facility] Kucajdtrof[address] [place], [place] [address]Dr. Airam Tripathi Sodium [Moles/Vol] 126 mmol/L Critically low 136-145 Th [facility] Comment on above: Performed By: #### B SURFBOARD MAKER, BMP ####[facility] Tuiyshzcau[address] [place], [place] [address]Dr. Airam Tripathi Urea nitrogen [Mass/Vol] 20.0 mg/dL Critically high 7.0-18.0 [facility] Comment on above: Performed By: #### B SURFBOARD MAKER, BMP ####[facility] Ppuksrcstx[address] [place], [place] [address]Dr. Airam Tripatih Urea nitrogen/Creatinine [Mass ratio] 17.1 mg/mg Normal [facility] Comment on above: Performed By: #### B SURFBOARD MAKER, BMP ####[facility] Tngfjqvjcs[address] [place], [place] [address]Dr. Selenaneil Deuce XR CHEST 1 Von 11-03-2022 XR CHEST 1 V Normal [facility] Activated partial thrombopla stin time (aPTT) in platelet poor plasma by coagulation aOrdered By: Favian Helm on 10-28-2022 aPTT Coag (PPP) [Time] 31.7 s 25.1-36.5 [facility] Alanine aminotransferase [En zymatic activity/volume] in Serum or PlasmaOrdered By: Favian Helm on 10-28-2022 ALT [Catalytic activity/Vol] 14 U/L 7-52 [facility] Albumin [Mass/volume] in Ser um or Plasma by Bromocresol green (BCG) dye binding methoOrdered By: Favian Helm on 10-28-2022 Albumin BCG dye [Mass/Vol] 3.6 g/dL 3.5-5.7 [facility] Alkaline phosphatase [Enzyma tic activity/volume] in Serum or PlasmaOrdered By: Favian Helm on 10-28-2022 ALP [Catalytic activity/Vol] 84 U/L 34-104 [facility] Aspartate aminotransferase [ Enzymatic activity/volume] in Serum or PlasmaOrdered By: Favian Helm on 10-28-2022 AST [Catalytic activity/Vol] 21 U/L 13-39 [facility] B-Type Natriuretic Peptideon 10-28-2022 Natriuretic peptide B (Bld) [Mass/Vol] 551.0 pg/mL High 5-100 [facility] Comment on above: Result Comment: PERF ORMED BY: [facility] [address] [place] [address] PATHOLOGIST [employer]ING MANAGER TANNER GAVIN M.D. Performed By: #### V [id number], MG, BMP, JOSE, FE and TIBC, RETIC #### [facility] [address] Basophils Auto (Bld) [#/Vol] Ordered By: Favian Helm on 10-28-2022 Basophils (Bld) [#/Vol] 0.0 10*3/uL 0.0-0.2 [facility] Basophils/100 WBC Auto (Bld) Ordered By: Favian Helm on 10-28-2022 Basophils/100 WBC (Bld) 0.4 % . [facility] Bilirubin.total [Mass/volume ] in Serum or PlasmaOrdered By: Favian Helm on 10-28-2022 Bilirubin [Mass/Vol] 0.3 mg/dL 0.3-1.[address] [facility] [address] head/brain wo conon 10-28 CT head/brain wo con [facility] [address] [place] [address] CT Scan Report Signed Patient: Mabel Moser MR#: [id number] : 1960 Acct:[id number] Age/Sex: 62 / F ADM Date: 10/28/22 Loc: ER Room: Type: [facility] ER Attending Dr: Copies to: Favian [...] Baljinder Ball M.D.10/28/2022 7:46 PM Dictation Location: [place] [address] Transcribed By: [facility] 10/28/221945 Dictated By: Baljinder Ball DO 10/28/221934 Signed By: 10/28/221945 Normal [facility] Calcium [Mass/volume] in Ser um or PlasmaOrdered By: Favian Helm on 10-28-2022 Calcium [Mass/Vol] 8.2 mg/dL 8.6-10.3 [facility] Carbon dioxide, total [Moles /volume] in Serum or PlasmaOrdered By: Favian Helm on 10-28-2022 CO2 [Moles/Vol] 25.7 mmol/L 21.0-31.0 [facility] Chloride [Moles/volume] in S andrea or PlasmaOrdered By: Favian Volodymyr on 10-28-2022 Chloride [Moles/Vol] 98 mmol/L 98-107 [facility] Complete Blood Count Auto Di ffon 10-28-2022 Basophils (Bld) [#/Vol] 0.0 10*3/uL Normal 0.0-0.2 [facility] Comment on above: Result Comment: PERF ORMED BY: [place] [address] PATHOLOGIST [employer] LEASING MANAGER TANNER GAVIN M.D. Performed By: #### V [id number], MG, BMP, JOSE, FE and TIBC, RETIC #### [address] Basophils/100 WBC (Bld) 0.4 % Normal . [facility] Comment on above: Performed By: #### V [id number], MG, BMP, JOSE, FE and TIBC, RETIC #### [address] Eosinophils (Bld) [#/Vol] 0.1 10*3/uL Normal 0.0-0.45 [facility] Comment on above: Performed By: #### V [id number], MG, BMP, JOSE, FE and TIBC, RETIC #### [address] Eosinophils/100 WBC (Bld) 1.0 % Normal . [facility] Comment on above: Performed By: #### V [id number], MG, BMP, JOSE, FE and TIBC, RETIC #### [address] Erythrocyte distribution width (RBC) [Ratio] 16.5 % High 11.9-15.3 [facility] Comment on above: Performed By: #### V [id number], MG, BMP, JOSE, FE and TIBC, RETIC #### [address] [place] [address] [place] Hematocrit (Bld) [Volume fraction] 29.9 % Low 34.0-46.4 [facility] Comment on above: Performed By: #### V [id number], MG, BMP, JOSE, FE and TIBC, RETIC #### [address] Hemoglobin (Bld) [Mass/Vol] 9.6 g/dL Low 11.8-15.4 [facility] Comment on above: Performed By: #### V [id number], MG, BMP, JOSE, FE and TIBC, RETIC #### [address] Lymphocytes (Bld) [#/Vol] 0.8 10*3/uL Low 1.00-4.8 [facility] Comment on above: Performed By: #### V [id number], MG, BMP, JOSE, FE and TIBC, RETIC #### [address] Lymphocytes/100 WBC (Bld) 12.8 % Normal . [facility] Comment on above: Performed By: #### V [id number], MG, BMP, JOSE, FE and TIBC, RETIC #### [address] MCH (RBC) [Entitic mass] 28.3 pg Normal 24.7-34.3 [facility] Comment on above: Performed By: #### V [id number], MG, BMP, JOSE, FE and TIBC, RETIC #### [address] MCV (RBC) [Entitic vol] 88.3 fL Normal 80-100 [facility] Comment on above: Performed By: #### V [id number], MG, BMP, JOSE, FE and TIBC, RETIC #### [address] Mean Corpuscular HGB Conc 32.0 g/dL Normal 32.0-35.0 [facility] Comment on above: Performed By: #### V [id number], MG, BMP, JOSE, FE and TIBC, RETIC #### [place], [place] [address] [place] Monocytes (Bld) [#/Vol] 0.2 10*3/uL Normal 0.0-0.8 [facility] Comment on above: Performed By: #### V [id number], MG, BMP, JOSE, FE and TIBC, RETIC #### [address] Monocytes/100 WBC (Bld) 17.29 % Normal 0.00-20.00 [facility] Comment on above: Performed By: #### V [id number], MG, BMP, JOSE, FE and TIBC, RETIC #### [address] Monocytes/100 WBC (Bld) 2.5 % Normal . [facility] Comment on above: Performed By: #### V [id number], MG, BMP, JOSE, FE and TIBC, RETIC #### [place] [address] [place] Neutrophils (Bld) [#/Vol] 5.5 10*3/uL Normal 1.8-7.7 [facility] Comment on above: Performed By: #### V [id number], MG, BMP, JOSE, FE and TIBC, RETIC #### [place] [address] [place] Neutrophils/100 WBC (Bld) 83.3 % Normal . [facility] Comment on above: Performed By: #### V [id number], MG, BMP, JOSE, FE and TIBC, RETIC #### [place] [address] [place] NRBC% 0.0 /100{WBC} Normal 0-0.5 [facility] Comment on above: Performed By: #### V [id number], MG, BMP, JOSE, FE and TIBC, RETIC #### [place] [address] [place] Platelet mean volume (Bld) [Entitic vol] 7.3 fL Normal 6.3-10.7 [facility] Comment on above: Performed By: #### V [id number], MG, BMP, JOSE, FE and TIBC, RETIC #### [facility] [address] Platelets (Bld) [#/Vol] 260 10*3/uL Normal 150-450 [facility] Comment on above: Performed By: #### V [id number], MG, BMP, JOSE, FE and TIBC, RETIC #### [facility] [address] RBC (Bld) [#/Vol] 3.38 10*6/uL Low 3.60-5.00 [facility] Comment on above: Performed By: #### V [id number], MG, BMP, JOSE, FE and TIBC, RETIC #### [address] WBC (Bld) [#/Vol] 6.6 10*3/uL Normal 3.8-11.6 [facility] Comment on above: Performed By: #### V [id number], MG, BMP, JOSE, FE and TIBC, RETIC #### [address] Comprehensive Metabolic Pane elena 10-28-2022 Albumin [Mass/Vol] 3.6 g/dL Normal 3.5-5.7 [facility] Comment on above: Performed By: #### V [id number], MG, BMP, JOSE, FE and TIBC, RETIC #### [address] Albumin/Globulin [Mass ratio] 1.6 {ratio} Normal [facility] Comment on above: Performed By: #### V [id number], MG, BMP, JOSE, FE and TIBC, RETIC #### [address] ALP [Catalytic activity/Vol] 84 U/L Normal 34-104 [facility] Comment on above: Performed By: #### V [id number], MG, BMP, JOSE, FE and TIBC, RETIC #### [address] ALT [Catalytic activity/Vol] 14 U/L Normal 7-52 [facility] Comment on above: Performed By: #### V [id number], MG, BMP, JOSE, FE and TIBC, RETIC #### [address] Anion gap [Moles/Vol] 10.0 mmol/L Normal 6.0-15.0 [facility] Comment on above: Performed By: #### V [id number], MG, BMP, JOSE, FE and TIBC, RETIC #### [address] AST [Catalytic activity/Vol] 21 U/L Normal 13-39 [facility] Comment on above: Performed By: #### V [id number], MG, BMP, JOSE, FE and TIBC, RETIC #### [address] Bilirubin [Mass/Vol] 0.3 mg/dL Normal 0.3-1.0 [facility] Comment on above: Performed By: #### V [id number], MG, BMP, JOSE, FE and TIBC, RETIC #### [address] Calcium [Mass/Vol] 8.2 mg/dL Low 8.6-10.3 [facility] Comment on above: Performed By: #### V [id number], MG, BMP, JOSE, FE and TIBC, RETIC #### [address] Chloride [Moles/Vol] 98 mmol/L Normal 98-107 [facility] Comment on above: Performed By: #### V [id number], MG, BMP, JOSE, FE and TIBC, RETIC #### [address] CO2 [Moles/Vol] 25.7 mmol/L Normal 21.0-31.0 [facility] Comment on above: Performed By: #### V [id number], MG, BMP, JOSE, FE and TIBC, RETIC #### [facility] [address] Creatinine [Mass/Vol] 1.23 mg/dL High 0.60-1.20 [facility] Comment on above: Performed By: #### V [id number], MG, BMP, JOSE, FE and TIBC, RETIC #### [facility] [address] Creatinine Clr Calc Pharmacy 48.79 [facility] Comment on above: Performed By: #### V [id number], MG, BMP, JOSE, FE and TIBC, RETIC #### [facility] [address] GFR/1.73 sq M.predicted MDRD (S/P/Bld) [Vol rate/Area] 50.309 mL/min/{1.73_m2} [facility] Comment on above: Performed By: #### V [id number], MG, BMP, JOSE, FE and TIBC, RETIC #### [facility] [address] Globulin (S) [Mass/Vol] 2.3 g/dL [facility] Comment on above: Performed By: #### V [id number], MG, BMP, JOSE, FE and TIBC, RETIC #### [facility] [address] Glucose [Mass/Vol] 98 mg/dL Normal 70-100 [facility] Comment on above: Result Comment: [place] Glucose Reference Range is dependent on time and content of last meal. Glucose of more than 200 mg/dL in a nonstressed, ambulatory subject supports the diagnosis of Diabetes Mellitus. ADA recommended reference range Performed By: #### V [id number], MG, BMP, JOSE, FE and TIBC, RETIC #### [facility] [address] [place] [address] Potassium [Moles/Vol] 4.7 mmol/L Normal 3.5-5.1 [facility] Comment on above: Performed By: #### V [id number], MG, BMP, JOSE, FE and TIBC, RETIC #### [address] Protein [Mass/Vol] 5.9 g/dL Low 6.4-8.9 [facility] Comment on above: Performed By: #### V [id number], MG, BMP, JOSE, FE and TIBC, RETIC #### [address] Sodium [Moles/Vol] 129 mmol/L Low 136-145 [facility] Comment on above: Performed By: #### V [id number], MG, BMP, JOSE, FE and TIBC, RETIC #### [address] Urea nitrogen [Mass/Vol] 36 mg/dL High 7-25 [facility] Comment on above: Performed By: #### V [id number], MG, BMP, JOSE, FE and TIBC, RETIC #### [address] Creatine Kinaseon 10-28-2022 CK [Catalytic activity/Vol] 45 U/L Normal [facility] Comment on above: Performed By: #### V [id number], MG, BMP, JOSE, FE and TIBC, RETIC #### [address] Creatine kinase [Enzymatic a ctivity/volume] in Serum or PlasmaOrdered By: Favian Helm on 10-28-2022 CK [Catalytic activity/Vol] 45 U/L [facility] Creatinine [Mass/volume] in Serum or PlasmaOrdered By: Favian Helm on 10-28-2022 Creatinine [Mass/Vol] 1.23 mg/dL 0.60-1.20 [facility] ECG 12 lead ECGon 10-28-[address]22 [address] [facility] [place] [address] Electrocardiograph Report Signed Patient: Mabel Moser MR#: [id number] : 1960 Acct:[id number] Age/Sex: 62 / F ADM Date: 10/28/22 Loc: ER Room: Type: [facility] ER Attending Dr: Ordering Provider: [...] normal variant Confirmed by Chris MAURO DO ([id number]) on 10/28/2022 8:40:44 PM Referred By: Electronically Signed By:Chris MAURO DO Transcribed By: MUS Signed By Chris Mauro DO 0 10/28/222039 Normal [facility] Eosinophils Auto (Bld) [#/Vo l]Ordered By: Favian Helm on 10-28-2022 Eosinophils (Bld) [#/Vol] 0.1 10*3/uL 0.0-0.45 [facility] Eosinophils/100 WBC Auto (Bl d)Ordered By: Favian Helm on 10-28-2022 Eosinophils/100 WBC (Bld) 1.0 % . [facility] Erythrocyte distribution wid th Auto (RBC) [Ratio]Ordered By: Favian Helm on 10-28-2022 Erythrocyte distribution width (RBC) [Ratio] 16.5 % 11.9-15.3 [facility] Globulin Calc (S) [Mass/Vol] Ordered By: Favian Helm on 10-28-2022 Globulin (S) [Mass/Vol] 2.3 g/dL [facility] Glucose [Mass/volume] in Ser um or PlasmaOrdered By: Favian Helm on 10-28-2022 Glucose [Mass/Vol] 98 mg/dL 70-100 [facility] Comment on above: ADA recommended refe rence rangeRandom Glucose Reference Range is dependent on time and content of last meal. Glucose of more than 200 mg/dL in a nonstressed, ambulatory subject supports the diagnosis of Diabetes Mellitus. Hematocrit Auto (Bld) [Volum e fraction]Ordered By: Favian Helm on 10-28-2022 Hematocrit (Bld) [Volume fraction] 29.9 % 34.0-46.4 [facility] Hemoglobin [Mass/volume] in BloodOrdered By: Favian Helm on 10-28-2022 Hemoglobin (Bld) [Mass/Vol] 9.6 g/dL 11.8-15.4 [facility] Laboratory - CoagulationOrde red By: Favian Helm on 10-28-2022 PT Coag (PPP) [Time] 11.0 s 9.0-12.9 [facility] Leukocytes [#/volume] correc nicol for nucleated erythrocytes in Blood by Automated counOrdered By: Favian Helm on 10-28-2022 WBC corrected for nucl RBC Auto (Bld) [#/Vol] 6.6 10*3/uL 3.8-11.6 [facility] Lymphocytes Auto (Bld) [#/Vo l]Ordered By: Favian Helm on 10-28-2022 Lymphocytes (Bld) [#/Vol] 0.8 10*3/uL 1.00-4.8 [facility] Lymphocytes/100 WBC Auto (Bl d)Ordered By: Favian Helm on 10-28-2022 Lymphocytes/100 WBC (Bld) 12.8 % . [facility] MCH Auto (RBC) [Entitic mass ]Ordered By: Favian Helm on 10-28-2022 MCH (RBC) [Entitic mass] 28.3 pg 24.7-34.3 [facility] MCHC Auto (RBC) [Mass/Vol]Or dered By: Favian Helm on 10-28-2022 MCHC (RBC) [Mass/Vol] 32.0 g/dL 32.0-35.0 [facility] MCV Auto (RBC) [Entitic vol] Ordered By: Favian Helm on 10-28-2022 MCV (RBC) [Entitic vol] 88.3 fL 80-100 [facility] Magnesiumon 10-28-2022 Magnesium [Mass/Vol] 1.9 mg/dL Normal 1.9-2.7 [facility] Comment on above: Result Comment: PERF ORMED BY: [facility] [address] [place] [address] PATHOLOGIST [employer]ING [employer] TANNER GAVIN M.D. Performed By: #### V [id number], MG, BMP, JOSE, FE and TIBC, RETIC #### [facility] [address] Magnesium [Mass/volume] in S andrea or PlasmaOrdered By: Favian Helm on 10-28-2022 Magnesium [Mass/Vol] 1.9 mg/dL 1.9-2.7 [facility] Monocyte distribution width [Entitic volume] in Blood by AutomatedOrdered By: Favian Helm on 10-28-2022 Monocyte distribution width Auto (Bld) [Entitic vol] 17.29 % 0.00-20.00 [facility] Monocytes Auto (Bld) [#/Vol] Ordered By: Favian Helm on 10-28-2022 Monocytes (Bld) [#/Vol] 0.2 10*3/uL 0.0-0.8 [facility] Monocytes/100 WBC Auto (Bld) Ordered By: Favian Helm on 10-28-2022 Monocytes/100 WBC (Bld) 2.5 % . [facility] Natriuretic peptide B [Mass/ Vol]Ordered By: Favian Helm on 10-28-2022 Natriuretic peptide B (Bld) [Mass/Vol] 551.0 pg/mL 5-100 [facility] Neutrophils Auto (Bld) [#/Vo l]Ordered By: Favian Helm on 10-28-2022 Neutrophils (Bld) [#/Vol] 5.5 10*3/uL 1.8-7.7 [facility] Neutrophils/100 WBC Auto (Bl d)Ordered By: Favian Helm on 10-28-2022 Neutrophils/100 WBC (Bld) 83.3 % . [facility] No Panel InformationOrdered By: Favian Helm on 10-28-2022 Estimated GFR (CKD-EPI) 50.309 mL/Min [facility] Creatinine Clearance (Chem 48.79 [facility] Nucleated erythrocytes [Pres ence] in Blood by Automated countOrdered By: Favian Helm on 10-28-2022 Nucleated RBC Auto Ql (Bld) 0.0 /100{WBC} 0-0.5 [facility] Partial Thromboplastin Timeo n 10-28-2022 aPTT Coag (Bld) [Time] 31.7 s Normal 25.1-36.5 [facility] Comment on above: Result Comment: PERF ORMED BY: [place] [address] PATHOLOGIST [employer]ING MANAGER TANNER GAVIN M.D. Performed By: #### V [id number], MG, BMP, JOSE, FE and TIBC, RETIC #### [address] Platelet mean volume Auto (B ld) [Entitic vol]Ordered By: Favian Helm on 10-28-2022 Platelet mean volume (Bld) [Entitic vol] 7.3 fL 6.3-10.7 [facility] Platelet poor plasma interna tional normalized ratio (INR) by coagulation assay (relatOrdered By: Favian Helm on 10-28-2022 INR Coag (PPP) [Relative time] 1.0 {INR} [facility] Comment on above: INR Therapeutic [...] 10-28-2022 Platelets (Bld) [#/Vol] 260 10*3/uL 150-450 [facility] Potassium [Moles/volume] in Serum or PlasmaOrdered By: Favian Helm on 10-28-2022 Potassium [Moles/Vol] 4.7 mmol/L 3.5-5.1 [facility] Protein [Mass/volume] in Ser um or PlasmaOrdered By: Favian Helm on 10-28-2022 Protein [Mass/Vol] 5.9 g/dL 6.4-8.9 [facility] Prothrombin Time INRon 10-28 INR Coag (PPP) [Relative time] 1.0 {INR} Normal [facility] Comment on above: Result Comment: [...] 3 - 4.5 Performed By: #### V [id number], MG, BMP, JOSE, FE and TIBC, RETIC #### [facility] [address] PT Coag (PPP) [Time] 11.0 s Normal 9.0-12.9 [facility] Comment on above: Performed By: #### V [id number], MG, BMP, JOSE, FE and TIBC, RETIC #### [facility] [address] RBC Auto (Bld) [#/Vol]Ordere d By: Favian Helm on 10-28-2022 RBC (Bld) [#/Vol] 3.38 10*6/uL 3.60-5.00 [facility] Serum or plasma albumin/glob ulin mass ratioOrdered By: Favian Helm on 10-28-2022 Albumin/Globulin [Mass ratio] 1.6 {ratio} [facility] Serum or plasma anion gap de terminationOrdered By: Favian Helm on 10-28-2022 Anion gap [Moles/Vol] 10.0 mmol/L 6.0-15.0 [facility] Sodium [Moles/volume] in Ser um or PlasmaOrdered By: Favian Helm on 10-28-2022 Sodium [Moles/Vol] 129 mmol/L 136-145 [facility] Troponin I High Sensitivityo n 05-05-2023 Troponin I High Sensitivity 5.8 pg/mL Normal 0.0-15.0 [facility] Comment on above: Result Comment: PERF ORMED BY: [place] [address] PATHOLOGIST [employer]ING MANAGER TANNER GAVIN M.D. Performed By: #### V [id number], MG, BMP, JOSE, FE and TIBC, RETIC #### [address] Troponin I.cardiac [Mass/vol ume] in Serum or Plasma by Detection limit <= 0.01 ng/Ordered By: Favian Helm on 10-28-2022 Troponin I.cardiac DL <= 0.01 ng/mL [Mass/Vol] 5.8 pg/mL 0.0-15.0 [facility] Urea nitrogen [Mass/volume] in Serum or PlasmaOrdered By: Favian Helm on 10-28-2022 Urea nitrogen [Mass/Vol] 36 mg/dL 7-25 [facility] WBC Auto (Bld) [#/Vol]Ordere d By: Favian Helm on 10-28-2022 WBC (Bld) [#/Vol] 6.6 10*3/uL 3.8-11.6 [facility] XR chest 2V*on 10-28-2022 XR chest 2V* [facility] [address] [place] [address] XRay Report Signed Patient: Mabel Moser MR#: [id number] : 1960 Acct:[id number] Age/Sex: 62 / F ADM Date: 10/28/22 Loc: ER Room: Type: [facility] ER Attending Dr: Copies to: Favian Helm PA-C Ordering Provider: Favian Helm PA-C Date of Service: 10/28/22 XR/XR chest 2V*: Shortness of Breath/Dyspnea Plain film chest 2 view HISTORY: Fluid overload. Shortness of breath. Headache. COMPARISON: 08/31/2018 FINDINGS: SUPPORT DEVICES: None POSTSURGICAL CHANGES: Right Ijyngu-k-Sipa intact with tip overlying the distal SVC. HEART: Within normal limits PULMONARY RAI: Within normal limits MEDIASTINUM: Unremarkable LUNGS AND PLEURA: No acute lung process, pleural effusion or pneumothorax identified. BONY STRUCTURES: Intact ADDITIONAL FINDINGS None XR/XR chest 2V* IMPRESSION: No acute process. Impression dictated by: Baljinder Ball M.D.10/28/2022 7:50 PM Dictation Location: [place] [address] Transcribed By: [facility] 10/28/221949 Dictated By: Baljinder Ball DO 10/28/221945 Signed By: 10/28/221949 [facility] BNPon 10-26-2022 Natriuretic peptide B (Bld) [Mass/Vol] 2657.0 pg/mL Critically high <=900.0 [facility] Comment on above: Performed By: #### C MP, BNP ####[facility] [address] [place], [place] [address]DrKianna Tripathi CBC AUTO DIFFon 10-26-2022 BASO # 0.0 103/ul Normal 0.0-0.1 [facility] Comment on above: Performed By: #### C BC ####[facility] [address] [place], [place] [address]Dr. Airam Tripathi Basophils/100 WBC (Bld) 0.5 % Normal 0.2-2.0 [facility] Comment on above: Performed By: #### C BC ####[facility] [address] [place], [place] [address]DrKianna Tripathi EO # 0.3 103/ul Normal 0.0-0.7 [facility] Comment on above: Performed By: #### C BC ####[facility] [address] [place], [place] [address]DrKianna Tripathi Eosinophils/100 WBC (Bld) 4.8 % Normal 0.9-7.0 [facility] Comment on above: Performed By: #### C BC ####[facility] [address] [place], [place] [address]DrKianna Tripathi Erythrocyte distribution width (RBC) [Ratio] 15.5 % Critically high 11.0-15.0 [facility] Comment on above: Performed By: #### C BC ####[facility] [address] [place] [address]Dr. Airam Tripathi Hematocrit (Bld) [Volume fraction] 27.7 % Critically low 36.0-48.0 [facility] Comment on above: Performed By: #### C BC ####[facility] [address] [place] [address]Dr. Airam Tripathi Hemoglobin (Bld) [Mass/Vol] 8.8 g/dL Critically low 12.0-16.0 [facility] Comment on above: Performed By: #### C BC ####[facility] [address] [place], [place] [address]Dr. Airam Tripathi IG # 0.03 10e3/ul Normal 0.00-0.03 [facility] Comment on above: Performed By: #### C BC ####[facility] [address] [place], [place] [address]Dr. Airam Tripathi IG % 0.5 % Normal 0.0-0.5 [facility] Comment on above: Performed By: #### C BC ####[facility] [address] [place], [place] [address]DrKianna Tripathi LYMPH # 1.6 103/ul Normal 1.2-3.8 [facility] Comment on above: Performed By: #### C BC ####[facility] [address] [place], [place] [address]Dr. Airam Tripathi Lymphocytes/100 WBC (Bld) 25.5 % Normal 20.5-60.0 [facility] Comment on above: Performed By: #### C BC ####[facility] [address] [place], [place] [address]DrKianna Tripathi MANUAL DIFF REQ NO Normal [facility] Comment on above: Performed By: #### C BC ####[facility] [address] [place], [place] [address]Dr. Airam Tripathi MCH (RBC) [Entitic mass] 29.0 pg Normal 26.7-34.0 [facility] Comment on above: Performed By: #### C BC ####[facility] [address] [place] [id number]. Airam Deuce MCHC (RBC) [Mass/Vol] 31.8 g/dL Normal 29.9-35.2 [facility] Comment on above: Performed By: #### C BC ####[facility] [address] [place] [id number]. Airam Tripathi MCV (RBC) [Entitic vol] 91.4 fL Normal 81.0-99.0 [facility] Comment on above: Performed By: #### C BC ####[facility] [address] [place] [address]DrKianna Tripathi MONO # 0.5 103/ul Normal 0.3-0.8 [facility] Comment on above: Performed By: #### C BC ####[facility] [address] [place] [address]Dr. Airam Tripathi Monocytes/100 WBC (Bld) 7.5 % Normal 1.7-12.0 [facility] Comment on above: Performed By: #### C BC ####[facility] [address] [place], [place] [address]Dr. Airam Tripathi NEUT # 3.9 103/ul Normal 1.4-6.5 [facility] Comment on above: Performed By: #### C BC ####[facility] [address] [place], [place] [address]Dr. Airam Tripathi Neutrophils/100 WBC (Bld) 61.2 % Normal 43.0-75.0 [facility] Comment on above: Performed By: #### C BC ####[facility] [address] [place], [place] [address]DrKianna Tripathi Platelet mean volume (Bld) [Entitic vol] 9.4 fL Critically low 9.5-13.5 [facility] Comment on above: Performed By: #### C BC ####[facility] [address] [place], [place] [address]Dr. Airam Tripathi PLT 247 103/ul Normal 150-450 [facility] Comment on above: Performed By: #### C BC ####[facility] [address] [place] [address]Dr. Airam Tripathi RBC 3.03 106/ul Critically low 4.20-5.40 [facility] Comment on above: Performed By: #### C BC ####[facility] [address] [place] [id number]. Airma Tripathi WBC 6.4 103/ul Normal 4.0-11.0 [facility] Comment on above: Performed By: #### C BC ####[facility] [address] [place] [address]Dr. Airam Tripathi PROF 14(COMP METB)on 023 Albumin [Mass/Vol] 2.5 g/dL Critically low 3.4-5.0 [facility] Comment on above: Performed By: #### C MP, BNP ####[facility] [address] [place], [place] [address]Dr. Airam Tripathi Albumin/Globulin [Mass ratio] 0.9 {ratio} Normal [facility] Comment on above: Performed By: #### C MP, BNP ####[facility] [address] [place], [place] [address]Dr. Airam Tripathi ALP [Catalytic activity/Vol] 108 U/L Normal 46-116 [facility] Comment on above: Performed By: #### C MP, BNP ####[facility] [address] [place] [address]Dr. Airam Tripathi ALT [Catalytic activity/Vol] 20 U/L Normal 14-59 [facility] Comment on above: Performed By: #### C MP, BNP ####[facility] [address] [place] [address]Dr. Airam Tripathi Anion gap [Moles/Vol] 10.4 mmol/L Normal [facility] Comment on above: Performed By: #### C MP, BNP ####[facility] [address]ctq[address] [place], [place] [address]Dr. Airam Tripathi AST [Catalytic activity/Vol] 20 U/L Normal 15-37 [facility] Comment on above: Performed By: #### C MP, BNP ####[facility] T[address] [place], [place] [address]Dr. Airam Tripathi Bilirubin [Mass/Vol] 0.2 mg/dL Normal 0.2-1.0 [facility] Comment on above: Performed By: #### C MP, BNP ####[facility] [address] [place], [place] [address]Dr. Airam Tripathi Calcium [Mass/Vol] 8.0 mg/dL Critically low 8.5-10.1 [facility] Comment on above: Performed By: #### C MP, BNP ####[facility] [address] [place], [place] [address]Dr. Airam Tripathi Chloride [Moles/Vol] 100 mmol/L Normal 98-107 [facility] Comment on above: Performed By: #### C MP, BNP ####[facility] [address]fec[address] [place], [place] [address]Dr. Airam Tripathi CO2 [Moles/Vol] 28.6 mmol/L Normal 21.0-32.0 [facility] Comment on above: Performed By: #### C MP, BNP ####[facility] [address] [place], [place] [address]Dr. Airam Tripathi Creatinine [Mass/Vol] 1.66 mg/dL Critically high 0.55-1.02 [facility] Comment on above: Performed By: #### C MP, BNP ####[facility] [address] [place], [place] [address]Dr. Airam Tripathi EGFR-AF QATARI 38 mL/min/1.73m2 Critically low >=60 [facility] Comment on above: Performed By: #### C MP, BNP ####[facility] [address] [place], [place] [address]Dr. Airam Tripathi EGFR-NON AF QATARI 32 mL/min/1.73m2 Critically low >=60 [facility] Comment on above: Performed By: #### C MP, BNP ####[facility] [address] [place], [place] [address]Dr. Airam Tripathi Globulin (S) [Mass/Vol] 2.8 g/dL Normal [facility] Comment on above: Performed By: #### C MP, BNP ####[facility] [address] [place], [place] [address]Dr. Airam Tripathi Glucose [Mass/Vol] 102 mg/dL Normal 74-106 [facility] Comment on above: Performed By: #### C MP, BNP ####[facility] [address] [place], [place] [address]Dr. Airam Tripathi Potassium [Moles/Vol] 5.0 mmol/L Normal 3.5-5.1 [facility] Comment on above: Performed By: #### C MP, BNP ####[facility] Gzxpjagaug027[address] [place], [place] [address]Dr. Airam Tripathi Protein [Mass/Vol] 5.3 g/dL Critically low 6.4-8.2 [facility] Comment on above: Performed By: #### C MP, BNP ####[facility] [id number] [place], [place] [address]Dr. Airam Tripathi Sodium [Moles/Vol] 134 mmol/L Critically low 136-145 [facility] Comment on above: Performed By: #### C MP, BNP ####[facility] Bdfyyxzulh0215[address] [place], [place] [address]Dr. Airam Tripathi Urea nitrogen [Mass/Vol] 45.0 mg/dL Critically high 7.0-18.0 [facility] Comment on above: Performed By: #### C MP, BNP ####[facility] Avxcihfxvo658[address] [place], [place] [address]Dr. Airam Tripathi Urea nitrogen/Creatinine [Mass ratio] 27.1 mg/mg Normal [facility] Comment on above: Performed By: #### C MP, BNP ####[facility] Kffwhuzsln725[address] [place], [place] [address]Dr. Airam Tripathi BNPon 10-25-2022 Natriuretic peptide B (Bld) [Mass/Vol] 4569.0 pg/mL Critically high <=900.0 [facility] Comment on above: Performed By: #### C MP, BNP ####[facility] Ooclrjjaqb938[address] [place], [place] [address]Dr. Selenaneil Tripathi CBC AUTO DIFFon 10-25-2022 BASO # 0.0 103/ul Normal 0.0-0.1 [facility] Comment on above: Performed By: #### C BC ####[facility] Vocuyilobw0014[address] [place], [place] [address]Dr. Airam Tripathi Basophils/100 WBC (Bld) 0.5 % Normal 0.2-2.0 [facility] Comment on above: Performed By: #### C BC ####[facility] Xgmgarlxlu1667[address] [place], [place] [address]Dr. Airam Tripathi EO # 0.3 103/ul Normal 0.0-0.7 [facility] Comment on above: Performed By: #### C BC ####[facility] Ghmhpgzbqa5649[address] [place], [place] [address]Dr. Airam Tripathi Eosinophils/100 WBC (Bld) 5.6 % Normal 0.9-7.0 [facility] Comment on above: Performed By: #### C BC ####[facility] Wgxetxiywb29224[address] [place], [place] [address]Dr. Airam Tripathi Erythrocyte distribution width (RBC) [Ratio] 15.7 % Critically high 11.0-15.0 [facility] Comment on above: Performed By: #### C BC ####[facility] Nhjujjkuym5312[address] [place], [place] [address]Dr. Airam Tripathi Hematocrit (Bld) [Volume fraction] 30.1 % Critically low 36.0-48.0 [facility] Comment on above: Performed By: #### C BC ####[facility] Ncajfqgfsb526[address] [place], [place] [address]Dr. Airam Tripathi Hemoglobin (Bld) [Mass/Vol] 9.2 g/dL Critically low 12.0-16.0 [facility] Comment on above: Performed By: #### C BC ####[facility] Bbmlwkxxiu014347 [address] [place], [place] [address]Dr. Airam Tripathi IG # 0.03 10e3/ul Normal 0.00-0.03 [facility] Comment on above: Performed By: #### C BC ####[facility] [address] [place] [address]DrKianna Airam Tripathi IG % 0.5 % Normal 0.0-0.5 [facility] Comment on above: Performed By: #### C BC ####[facility] Ibocchjazu45[address] [place] [address]DrKianna Waltersneil Deuce LYMPH # 1.7 103/ul Normal 1.2-3.8 [facility] Comment on above: Performed By: #### C BC ####[facility] Qmdowjlajg8313[address] [place], [place] [address]DrKianna Airam Deuce Lymphocytes/100 WBC (Bld) 28.9 % Normal 20.5-60.0 [facility] Comment on above: Performed By: #### C BC ####[facility] Qbpxwgmnbq1209[address] [place], [place] [address]DrKianna Tripathi MANUAL DIFF REQ NO Normal [facility] Comment on above: Performed By: #### C BC ####[facility] Cqkrnoiffz824[address] [place], [place] [address]DrKianna Airam Deuce MCH (RBC) [Entitic mass] 28.4 pg Normal 26.7-34.0 [facility] Comment on above: Performed By: #### C BC ####[facility] Yebgqtxwoe609[address] [place], [place] [address]DrKianna Airam eDuce MCHC (RBC) [Mass/Vol] 30.6 g/dL Normal 29.9-35.2 [facility] Comment on above: Performed By: #### C BC ####[facility] Seaexqyiqi600[address] [place], [place] [address]DrKianna Airam Deuce MCV (RBC) [Entitic vol] 92.9 fL Normal 81.0-99.0 [facility] Comment on above: Performed By: #### C BC ####[facility] Bqecgmchen49224[address] [place], [place] [address]DrKianna Tripathi MONO # 0.5 103/ul Normal 0.3-0.8 [facility] Comment on above: Performed By: #### C BC ####[facility] R[address]aoyvfze[address] [place] [address]Dr. Airam Tripathi Monocytes/100 WBC (Bld) 8.5 % Normal 1.7-12.0 [facility] Comment on above: Performed By: #### C BC ####[facility] Jrgkshlcan80[address] [place] [address]Dr. Airam Tripathi NEUT # 3.2 103/ul Normal 1.4-6.5 [facility] Comment on above: Performed By: #### C BC ####[facility] Eqtrjesxhc1804 [place] [address]Dr. Airam Tripathi Neutrophils/100 WBC (Bld) 56.0 % Normal 43.0-75.0 [facility] Comment on above: Performed By: #### C BC ####[facility] Eebsedqhdl2833 [place] [address]Dr. Airam Tripathi Platelet mean volume (Bld) [Entitic vol] 9.4 fL Critically low 9.5-13.5 [facility] Comment on above: Performed By: #### C BC ####[facility] Ghwtcrfxyi9235[address] [place], [place] [address]Dr. Airam Tripathi PLT 272 103/ul Normal 150-450 [facility] Comment on above: Performed By: #### C BC ####[facility] Kudicobfef750[address] [place] [address]Dr. Airam Tripathi RBC 3.24 106/ul Critically low 4.20-5.40 [facility] Comment on above: Performed By: #### C BC ####[facility] Rarudhtbsi7227 [place] [address]Dr. Airam Tripathi WBC 5.8 103/ul Normal 4.0-11.0 The [facility] Comment on above: Performed By: #### C BC ####[facility] [address]knk[address] [place] [address]Dr. Airam Tripathi OSMOLALITYon 10-25-2022 Osmolality [Osmolality] 282 mosm/kg Normal 275-295 [facility] Comment on above: Performed By: #### O SMO ####[facility] Wsgwlucpzh3[address] [place] [address]Dr. Airam Tripathi PROF 14(COMP METB)on 023 Albumin [Mass/Vol] 2.7 g/dL Critically low 3.4-5.0 [facility] Comment on above: Performed By: #### C MP, BNP ####[facility] Lvwykjeybz8887 [place] [address]Dr. Airam Tripathi Albumin/Globulin [Mass ratio] 0.9 {ratio} Normal [facility] Comment on above: Performed By: #### C MP, BNP ####[facility] Lbtnmrcons763447 [address] [place], [place] [address]Dr. Airam Tripathi ALP [Catalytic activity/Vol] 122 U/L Critically high 46-116 [facility] Comment on above: Performed By: #### C MP, BNP ####[facility] Xzscntpczh9095[address] [place], [place] [address]Dr. Airam Tripathi ALT [Catalytic activity/Vol] 23 U/L Normal 14-59 [facility] Comment on above: Performed By: #### C MP, BNP ####[facility] Iqhzydxbll3701[address] [place], [place] [address]Dr. Airam Tripathi Anion gap [Moles/Vol] 10.5 mmol/L Normal Th [facility] Comment on above: Performed By: #### C MP, BNP ####[facility] Yyvenbnrfu576847 [address] [place], [place] [address]Dr. Airam Tripathi AST [Catalytic activity/Vol] 22 U/L Normal 15-37 [facility] Comment on above: Performed By: #### C MP, BNP ####[facility] Lxrofkpmhq7489[address] [place], [place] [address]Dr. Airam Tripathi Bilirubin [Mass/Vol] 0.2 mg/dL Normal 0.2-1.0 [facility] Comment on above: Performed By: #### C MP, BNP ####[facility] Udljboktrf019747 [address] [place], [place] [address]Dr. Airam Tripathi Calcium [Mass/Vol] 8.3 mg/dL Critically low 8.5-10.1 Th e [facility] Comment on above: Performed By: #### C MP, BNP ####[facility] Eihyxgoosl001247 [address] [place], [place] [address]Dr. Airam Tripathi Chloride [Moles/Vol] 102 mmol/L Normal 98-107 [facility] Comment on above: Performed By: #### C MP, BNP ####[facility] Qucpedtmcu5310[address] [place], [place] [address]Dr. Airam Tripathi CO2 [Moles/Vol] 29.7 mmol/L Normal 21.0-32.0 The [facility] Comment on above: Performed By: #### C MP, BNP ####[facility] Xmpklzathn2879[address] [place], [place] [address]Dr. Airam Tripathi Creatinine [Mass/Vol] 1.31 mg/dL Critically high 0.55-1.02 [facility] Comment on above: Performed By: #### C MP, BNP ####[facility] Brhadtoufs5310[address] [place], [place] [address]Dr. Airam Tripathi EGFR-AF QATARI 50 mL/min/1.73m2 Critically low >=60 The [facility] Comment on above: Performed By: #### C MP, BNP ####[facility] Crfebpztiw880[address] [place], [place] [address]Dr. Airam Tripathi EGFR-NON AF QATARI 41 mL/min/1.73m2 Critically low >=60 The [facility] Comment on above: Performed By: #### C MP, BNP ####[facility] Yyaukxpoyh8815[address] [place], [place] [address]Dr. Airam Tripathi Globulin (S) [Mass/Vol] 2.9 g/dL Normal [facility] Comment on above: Performed By: #### C MP, BNP ####[facility] Cjfvfungaf387947 [address] [place], [place] [address]Dr. Airam Tripathi Glucose [Mass/Vol] 94 mg/dL Normal 74-106 [facility] Comment on above: Performed By: #### C MP, BNP ####[facility] Xevjzzznoi[address] [place] [address]Dr. Airam Tripathi Potassium [Moles/Vol] 4.2 mmol/L Normal 3.5-5.1 [facility] Comment on above: Performed By: #### C MP, BNP ####[facility] Ldfjbsbjwa926547 [address] [place], [place] [address]Dr. Airam Tripathi Protein [Mass/Vol] 5.6 g/dL Critically low 6.4-8.2 Th [facility] Comment on above: Performed By: #### C MP, BNP ####[facility] Crdxwdhjzp632647 [address] [place], [place] [address]Dr. Airam Tripathi Sodium [Moles/Vol] 138 mmol/L Normal 136-145 [facility] Comment on above: Performed By: #### C MP, BNP ####[facility] Wncksgfmas818047 [address] [place], [place] [address]Dr. Airam Tripathi Urea nitrogen [Mass/Vol] 33.0 mg/dL Critically high 7.0-18.0 [facility] Comment on above: Performed By: #### C MP, BNP ####[facility] Ymieietjlv234447 [address] [place], [place] [address]Dr. Airam Tripathi Urea nitrogen/Creatinine [Mass ratio] 25.2 mg/mg Normal [facility] Comment on above: Performed By: #### C MP, BNP ####[facility] Mngouyjhwn3244[address] [place], [place] [address]Dr. Selenaneil Tripathi BNPon 10-24-2022 Natriuretic peptide B (Bld) [Mass/Vol] 3805.0 pg/mL Critically high <=900.0 [facility] Comment on above: Performed By: #### H STROPN, BNP, CMP ####[facility] Ylkirdeqhy7957[address] [place], [place] [address]Dr. Airam Deuce CBC AUTO DIFFon 10-24-2022 BASO # 0.0 103/ul Normal 0.0-0.1 [facility] Comment on above: Performed By: #### C BC ####[facility] Rfumjmuqdi037247 [address] [place], [place] [address]Dr. Airam Deuce Basophils/100 WBC (Bld) 0.3 % Normal 0.2-2.0 [facility] Comment on above: Performed By: #### C BC ####[facility] Jsaynzjheq789347 [address] [place], [place] [address]Dr. Airam Tripathi EO # 0.3 103/ul Normal 0.0-0.7 [facility] Comment on above: Performed By: #### C BC ####[facility] Myalhzhpyu197847 [address] [place], [place] [address]Dr. Airam Tripathi Eosinophils/100 WBC (Bld) 4.2 % Normal 0.9-7.0 [facility] Comment on above: Performed By: #### C BC ####[facility] Rrwvufrufb512047 [address] [place], [place] [address]Dr. Airam Tripathi Erythrocyte distribution width (RBC) [Ratio] 15.6 % Critically high 11.0-15.0 [facility] Comment on above: Performed By: #### C BC ####[facility] Adnzycbstc414547 [address] [place], [place] [address]Dr. Airam Tripathi Hematocrit (Bld) [Volume fraction] 30.0 % Critically low 36.0-48.0 [facility] Comment on above: Performed By: #### C BC ####[facility] Qwmfsjzzth1627[address] [place], [place] [address]Dr. Airam Tripathi Hemoglobin (Bld) [Mass/Vol] 9.3 g/dL Critically low 12.0-16.0 [facility] Comment on above: Performed By: #### C BC ####[facility] Hltxfrwast3050[address] [place], [place] [address]Dr. Airam Tripathi IG # 0.03 10e3/ul Normal 0.00-0.03 [facility] Comment on above: Performed By: #### C BC ####[facility] Dckmeyfmfx605[address] [place], [place] [address]Dr. Airam Tripathi IG % 0.5 % Normal 0.0-0.5 [facility] Comment on above: Performed By: #### C BC ####[facility] Rotizrumjt8685[address] [place], [place] [address]Dr. Airam Tripathi LYMPH # 1.4 103/ul Normal 1.2-3.8 [facility] Comment on above: Performed By: #### C BC ####[facility] Frjrwxsfaj7031 [place] [address]Dr. Airam Tripathi Lymphocytes/100 WBC (Bld) 22.5 % Normal 20.5-60.0 [facility] Comment on above: Performed By: #### C BC ####[facility] Giyfwpzuuc962[address] [place], [place] [address]Dr. Airam Tripathi MANUAL DIFF REQ NO Normal [facility] Comment on above: Performed By: #### C BC ####[facility] Ufmvmovmfh0399[address] [place], [place] [address]Dr. Airam Tripathi MCH (RBC) [Entitic mass] 28.7 pg Normal 26.7-34.0 [facility] Comment on above: Performed By: #### C BC ####[facility] Jatwoxlpmv2649[address] [place], [place] [address]Dr. Airam Tripathi MCHC (RBC) [Mass/Vol] 31.0 g/dL Normal 29.9-35.2 [facility] Comment on above: Performed By: #### C BC ####[facility] Tanvwayquo2633[address] [place], [place] [address]Dr. Airam Tripathi MCV (RBC) [Entitic vol] 92.6 fL Normal 81.0-99.0 [facility] Comment on above: Performed By: #### C BC ####[facility] Ffangperng2399[address] [place], [place] [address]Dr. Airam Tripathi MONO # 0.4 103/ul Normal 0.3-0.8 [facility] Comment on above: Performed By: #### C BC ####[facility] Iywjxzobmg68364[address] [place], [place] [address]Dr. Airam Tripathi Monocytes/100 WBC (Bld) 7.3 % Normal 1.7-12.0 [facility] Comment on above: Performed By: #### C BC ####[facility] Dqtwkejsdq1420[address] [place], [place] [address]Dr. Airam Tripathi NEUT # 3.9 103/ul Normal 1.4-6.5 [facility] Comment on above: Performed By: #### C BC ####[facility] Ssrdwkoyup[address] [place] [address]Dr. Airam Tripathi Neutrophils/100 WBC (Bld) 65.2 % Normal 43.0-75.0 [facility] Comment on above: Performed By: #### C BC ####[facility] Oqheuakpuf2945 [place] [address]Dr. Airam Tripathi Platelet mean volume (Bld) [Entitic vol] 9.0 fL Critically low 9.5-13.5 [facility] Comment on above: Performed By: #### C BC ####[facility] Jjpygbkmqb312[address] [place], [place] [address]Dr. Airam Tripathi PLT 247 103/ul Normal 150-450 [facility] Comment on above: Performed By: #### C BC ####[facility] Ihqbwasxtc0837[address] [place], [place] [address]DrKianna Tripathi RBC 3.24 106/ul Critically low 4.20-5.40 [facility] Comment on above: Performed By: #### C BC ####[facility] Myrbkptrxw37024[address] [place], [place] [address]Dr. Airam Tripathi WBC 6.0 103/ul Normal 4.0-11.0 [facility] Comment on above: Performed By: #### C BC ####[facility] Yenqpsdrbk[address]64[address] [place], [place] [address]DrKianna Tripathi CULTURE URINEon 10-24-2022 CULTURE URINE Culture Observations : LIGHT GROWTH OF MIXED GENITAL GREGORY. NO POTENTIAL PATHOGENS SEEN. Normal [facility] Comment on above: Performed By: #### U RCX ####[facility] Luistbevji9[address] [place], [place] [address]DrKianna Tripathi POINT OF CARE GLUCOSEon Glucose [Mass/Vol] 118 mg/dL Critically high 74-106 T [facility] Comment on above: Performed By: #### P OCGLUC ####[facility] Hlwijhmigx01[address] [place], [place] [address]Dr. Airam Tripathi PROF 14(COMP METB)on 023 Albumin [Mass/Vol] 3.1 g/dL Critically low 3.4-5.0 [facility] Comment on above: Performed By: #### H STROPN, BNP, CMP ####[facility] Wxntvpbbyk75[address] [place] [address]Dr. Airam Tripathi Albumin/Globulin [Mass ratio] 1.0 {ratio} Normal [facility] Comment on above: Performed By: #### H STROPN, BNP, CMP ####[facility] Qszhuzfnvr0985 [place] [address]Dr. Airam Tripathi ALP [Catalytic activity/Vol] 131 U/L Critically high 46-116 [facility] Comment on above: Performed By: #### H STROPN, BNP, CMP ####[facility] Jkmjzqdvou1558 [place] [address]Dr. Airam Tripathi ALT [Catalytic activity/Vol] 26 U/L Normal 14-59 [facility] Comment on above: Performed By: #### H STROPN, BNP, CMP ####[facility] Gofgyitnlm2090 [place] [address]Dr. Airam Tripathi Anion gap [Moles/Vol] 11.2 mmol/L Normal [facility] Comment on above: Performed By: #### H STROPN, BNP, CMP ####[facility] Kfxaqldait2917 [place] [address]Dr. Airam Tripathi AST [Catalytic activity/Vol] 31 U/L Normal 15-37 [facility] Comment on above: Performed By: #### H STROPN, BNP, CMP ####[facility] Nuggargchr6064 [place] [address]Dr. Airam Tripathi Bilirubin [Mass/Vol] 0.2 mg/dL Normal 0.2-1.0 [facility] Comment on above: Performed By: #### H STROPN, BNP, CMP ####[facility] Hlolfdbgzr3341 [place] [address]Dr. Airam Tripathi Calcium [Mass/Vol] 8.6 mg/dL Normal 8.5-10.1 [facility] Comment on above: Performed By: #### H STROPN, BNP, CMP ####[facility] Cdevpopyzo0921 [place] [address]Dr. Airam Tripathi Chloride [Moles/Vol] 102 mmol/L Normal 98-107 [facility] Comment on above: Performed By: #### H STROPN, BNP, CMP ####[facility] Uuuvfzopoh37[address] [place] [address]Dr. Airam Tripathi CO2 [Moles/Vol] 27.4 mmol/L Normal 21.0-32.0 [facility] Comment on above: Performed By: #### H STROPN, BNP, CMP ####[facility] Yeemjnnlmm9[address] [place], [place] [address]Dr. Airam Tripathi Creatinine [Mass/Vol] 1.23 mg/dL Critically high 0.55-1.02 [facility] Comment on above: Performed By: #### H STROPN, BNP, CMP ####[facility] Hopgcecupu3823[address] [place], [place] [address]Dr. Ariam Tripathi EGFR-AF QATARI 54 mL/min/1.73m2 Critically low >=60 [facility] Comment on above: Performed By: #### H STROPN, BNP, CMP ####[facility] Fiuezfeiyh090[address] [place], [place] [address]Dr. Airam Tripathi EGFR-NON AF QATARI 45 mL/min/1.73m2 Critically low >=60 The [facility] Comment on above: Performed By: #### H STROPN, BNP, CMP ####[facility] Tjmdekaujf12[address] [place], [place] [address]Dr. Airam Tripathi Globulin (S) [Mass/Vol] 3.1 g/dL Normal [facility] Comment on above: Performed By: #### H STROPN, BNP, CMP ####[facility] Qvqxkiianw20[address] [place], [place] [address]Dr. Airam Tripathi Glucose [Mass/Vol] 90 mg/dL Normal 74-106 [facility] Comment on above: Performed By: #### H STROPN, BNP, CMP ####[facility] Ujknnhbuxu22[address] [place] [address]Dr. Airam Tripathi Potassium [Moles/Vol] 5.6 mmol/L Critically high 3.5-5.1 [facility] Comment on above: Performed By: #### H STROPN, BNP, CMP ####[facility] Kzzjwbhnwz2127 [place] [address]Dr. Airam Tripathi Protein [Mass/Vol] 6.2 g/dL Critically low 6.4-8.2 Th [facility] Comment on above: Performed By: #### H STROPN, BNP, CMP ####[facility] Udbqghbsfe1089 [place] [address]Dr. Airam Tripathi Sodium [Moles/Vol] 135 mmol/L Critically low 136-145 Th [facility] Comment on above: Performed By: #### H STROPN, BNP, CMP ####[facility] Xjaksyfidt6140 [place] [address]Dr. Selenaneil Tripathi Urea nitrogen [Mass/Vol] 38.0 mg/dL Critically high 7.0-18.0 [facility] Comment on above: Performed By: #### H STROPN, BNP, CMP ####[facility] Ukpkrdkglc3551 [place] [address]Dr. Selenaneil Tripathi Urea nitrogen/Creatinine [Mass ratio] 30.9 mg/mg Normal [facility] Comment on above: Performed By: #### H STROPN, BNP, CMP ####[facility] Koiujpekff89[address] [place] [address]Dr. Airam Tripathi TROPONIN, HIGH SENSITIVITYon 10-24-2022 HSTROP 8.0 pg/mL Normal 4.0-51.3 [facility] Comment on above: Result Comment: CUT- OFF POINTS HAVE BEEN ESTABLISHED BASED ON THE FOURTH UNIVERSAL DEFINITIONS OF MYOCARDIALINFARCTION. THE UPPER REFERENCE LIMIT (URL) OF TROPONIN, DEFINED THE 99TH PERCENTILE OFcTnI DISTRIBUTION IN A REFERENCE POPULATION, HAS BEEN CONFIRMED THE DECISION THRESHOLDFOR LA DIAGNOSIS. Performed By: #### H STROPN, BNP, CMP ####[facility] Sacnuwpfpa[address] [place] [address]Dr. Airam Tripathi UA RANDOM W/MICROSCOPICon BACTERIA NONE SEEN Normal NONE SEEN [facility] Comment on above: Performed By: #### U AMIC ####[facility] Ewiiralfwh[address] [place], [place] [address]Dr. Airam Tripathi Bilirubin Ql (U) Negative Normal NEGATIVE [facility] Comment on above: Performed By: #### U AMIC ####[facility] Ftlzmwbzxn72[address] [place] [address]Dr. Airam Tripathi CAST NONE SEEN Normal NONE SEEN [facility] Comment on above: Performed By: #### U AMIC ####[facility] Yavflpddvl03[address] [place], [place] [address]Dr. Airam Tripathi Clarity (U) CLEAR Normal CLEAR [facility] Comment on above: Performed By: #### U AMIC ####[facility] Gizdnkvrlp[address] [place], [place] [address]Dr. Airam Tripathi Color (U) LT. YELLOW Normal YELLOW [facility] Comment on above: Performed By: #### U AMIC ####[facility] Nyjesymrws84[address] [place], [place] [address]Dr. Airam Tripathi Crystals LM Nom (Urine sed) NONE SEEN Normal NONE SEEN [facility] Comment on above: Performed By: #### U AMIC ####[facility] Bdwlfcpbav[address] [place], [place] [address]Dr. Airam Tripathi Epithelial cells LM Ql (Urine sed) RARE Normal NONE SEEN /RARE [facility] Comment on above: Performed By: #### U AMIC ####[facility] Xufisxpohj09[address] [place], [place] [address]Dr. Airam Tripathi Glucose Ql (U) Negative Normal NEGATIVE [facility] Comment on above: Performed By: #### U AMIC ####[facility] [id number] [address] [place], [place] [address]Dr. Airam Tripathi Hemoglobin Ql (U) Negative Normal NEGATIVE [facility] Comment on above: Performed By: #### U AMIC ####[facility] Udeveynvwy[address] [place], [place] [address]Dr. Airam Tripathi Ketones Ql (U) Negative Normal NEGATIVE [facility] Comment on above: Performed By: #### U AMIC ####[facility] [address]asnq[address] [place] [address]Dr. Airam Deuce LEUKOCYTES Negative Normal NEGATIVE The [facility] Comment on above: Performed By: #### U AMIC ####[facility] Lhaprhowbm[address] [place] [address]Dr. Airam Tripathi MUCOUS NONE SEEN Normal NONE SEEN [facility] Comment on above: Performed By: #### U AMIC ####[facility] Wmwapiniay037[address] [place] [address]Dr. Airam Tripathi Nitrite Ql (U) Negative Normal NEGATIVE The [facility] Comment on above: Performed By: #### U AMIC ####[facility] Hmtzbsfmhk6[address] [place], [place] [address]Dr. Airam Tripathi pH (U) 7.0 [pH] Normal 5-9 [facility] Comment on above: Performed By: #### U AMIC ####[facility] Tucaphzgsf2964[address] [place], [place] [address]Dr. Airam Tripathi RBC 0-2 Normal 0-2 [facility] Comment on above: Performed By: #### U AMIC ####[facility] Pfhsxtqypz8947[address] [place], [place] [address]Dr. Airam Tripathi SPEC GRAVITY 1.015 Normal 1.005-<=1. 025 The [facility] Comment on above: Performed By: #### U AMIC ####[facility] Vdtglsdncf7[address] [place], [place] [address]Dr. Airam Tripathi UA PROTEIN Negative Normal NEGATIVE/ TRACE The [facility] Comment on above: Performed By: #### U AMIC ####[facility] Gxuqhesdtg5[address] [place], [place] [address]Dr. Airam Tripathi Urobilinogen Qn (U) 0.2 {Ligia'U}/dL Normal 0.2 - 1. 0 The [facility] Comment on above: Performed By: #### U AMIC ####[facility] Wjacizlwbf509[address] [place], [place] [address]Dr. Airam Tripathi WBC NONE SEEN Normal NONE SEEN The [facility] Comment on above: Performed By: #### U AMIC ####[facility] Bgxvqvgmex[address] [place] [address]Dr. Airam Tripathi XR CHEST 1 Von 10-24-2022 XR CHEST 1 V Normal [facility] CBC AUTO DIFFon 10-19-2022 BASO # 0.0 103/ul Normal 0.0-0.1 [facility] Comment on above: Performed By: #### C BC ####[facility] Ntsqtrcems[address] [place] [address]Dr. Airam Tripathi Basophils/100 WBC (Bld) 0.5 % Normal 0.2-2.0 The [facility] Comment on above: Performed By: #### C BC ####[facility] Cylukdajlt69[address] [place], [place] [address]Dr. Airam Tripathi EO # 0.3 103/ul Normal 0.0-0.7 The [facility] Comment on above: Performed By: #### C BC ####[facility] Knuqdqfekl6055[address] [place], [place] [address]Dr. Airam Tripathi Eosinophils/100 WBC (Bld) 3.3 % Normal 0.9-7.0 The [facility] Comment on above: Performed By: #### C BC ####[facility] Cotvlxtwcb469547 [address] [place], [place] [address]Dr. Airam Tripathi Erythrocyte distribution width (RBC) [Ratio] 15.0 % Normal 11.0-15.0 The [facility] Comment on above: Performed By: #### C BC ####[facility] Gqhsqoirfo6[address] [place], [place] [address]Dr. Airam Tripathi Hematocrit (Bld) [Volume fraction] 32.9 % Critically low 36.0-48.0 The [facility] Comment on above: Performed By: #### C BC ####[facility] Zzbdpnfzdr8435[address] [place], [place] [address]Dr. Airam Tripathi Hemoglobin (Bld) [Mass/Vol] 10.1 g/dL Critically low 12.0-16.0 The [facility] Comment on above: Performed By: #### C BC ####[facility] Ejvccvonlf[address] [place] [phone]. Airam Tripathi IG # 0.04 10e3/ul Critically high 0.00-0.03 The [facility] Comment on above: Performed By: #### C BC ####[facility] Jffeigplgg22[address] [place] [phone]. Airam Tripathi IG % 0.5 % Normal 0.0-0.5 The [facility] Comment on above: Performed By: #### C BC ####[facility] Fcdcvzvigu0720 [place] [address]Dr. Airam Deuce LYMPH # 1.5 103/ul Normal 1.2-3.8 The [facility] Comment on above: Performed By: #### C BC ####[facility] Fftlswihgf9773 [place] [address]Dr. Airam Tripathi Lymphocytes/100 WBC (Bld) 18.1 % Critically low 20.5-60.0 The [facility] Comment on above: Performed By: #### C BC ####[facility] Khjnnfduqy1935[address] [place], [place] [address]Dr. Selenaneil Tripathi MANUAL DIFF REQ NO Normal [facility] Comment on above: Performed By: #### C BC ####[facility] Wcqfjumtel7130 [place] [address]Dr. Airam Deuce MCH (RBC) [Entitic mass] 28.3 pg Normal 26.7-34.0 The [facility] Comment on above: Performed By: #### C BC ####[facility] Icxmvbcfff6875 [place] [address]Dr. Airam Deuce MCHC (RBC) [Mass/Vol] 30.7 g/dL Normal 29.9-35.2 The [facility] Comment on above: Performed By: #### C BC ####[facility] Mrhbampniw0693 [place] [address]Dr. Airam Deuce MCV (RBC) [Entitic vol] 92.2 fL Normal 81.0-99.0 The [facility] Comment on above: Performed By: #### C BC ####[facility] Phkcgixwzn27[address] [place] [phone]. Airam Tripathi MONO # 0.7 103/ul Normal 0.3-0.8 The [facility] Comment on above: Performed By: #### C BC ####[facility] Ldhvjgzkhl1641 [place] [phone]. Airam Tripathi Monocytes/100 WBC (Bld) 7.7 % Normal 1.7-12.0 The [facility] Comment on above: Performed By: #### C BC ####[facility] Fslwkgyqid6405 [place] [phone]. Airam Tripathi NEUT # 5.9 103/ul Normal 1.4-6.5 The [facility] Comment on above: Performed By: #### C BC ####[facility] Ktknbkalap2443 [place] [phone]. Airam Tripathi Neutrophils/100 WBC (Bld) 69.9 % Normal 43.0-75.0 The [facility] Comment on above: Performed By: #### C BC ####[facility] Szhmxnfhud9774 [place] [phone]. Airam Tripathi Platelet mean volume (Bld) [Entitic vol] 9.3 fL Critically low 9.5-13.5 The [facility] Comment on above: Performed By: #### C BC ####[facility] Irfngvaltn8857 [place] [phone]. Airam Tripathi PLT 293 103/ul Normal 150-450 The [facility] Comment on above: Performed By: #### C BC ####[facility] Nxodmndiqu8048 [place] [phone]. Airam Tripathi RBC 3.57 106/ul Critically low 4.20-5.40 The [facility] Comment on above: Performed By: #### C BC ####[facility] Vtviusklfv5987 [place] [phone]. Airam Tripathi WBC 8.4 103/ul Normal 4.0-11.0 [facility] Comment on above: Performed By: #### C BC ####[facility] Dxlvximtta[address] [place], [place] [address]Dr. Airam Tripathi PROF 14(COMP METB)on 023 Albumin [Mass/Vol] 3.1 g/dL Critically low 3.4-5.0 Th [facility] Comment on above: Performed By: #### C MP ####[facility] Qziufjxusm07[address] [place] [address]Dr. Airam Tripathi Albumin/Globulin [Mass ratio] 0.9 {ratio} Normal [facility] Comment on above: Performed By: #### C MP ####[facility] Ddcrjmykix0816[address] [place], [place] [address]Dr. Airam Tripathi ALP [Catalytic activity/Vol] 117 U/L Critically high 46-116 [facility] Comment on above: Performed By: #### C MP ####[facility] Fvtmqudrep0829[address] [place], [place] [address]Dr. Airam Tripathi ALT [Catalytic activity/Vol] 24 U/L Normal 14-59 [facility] Comment on above: Performed By: #### C MP ####[facility] Rlevhecelp895547 [address] [place], [place] [address]Dr. Airam Tripathi Anion gap [Moles/Vol] 11.1 mmol/L Normal Th [facility] Comment on above: Performed By: #### C MP ####[facility] Cobwlyfmbo357[address] [place], [place] [address]Dr. Airam Tripathi AST [Catalytic activity/Vol] 22 U/L Normal 15-37 [facility] Comment on above: Performed By: #### C MP ####[facility] Cumtwkcodx19[address] [place], [place] [address]Dr. Airam Tripathi Bilirubin [Mass/Vol] 0.2 mg/dL Normal 0.2-1.0 [facility] Comment on above: Performed By: #### C MP ####[facility] Qfwesuvltt9008[address] [place], [place] [address]Dr. Airam Tripathi Calcium [Mass/Vol] 8.4 mg/dL Critically low 8.5-10.1 Th [facility] Comment on above: Performed By: #### C MP ####[facility] Diqmpqaaxp[address] [place] [address]Xx. Airam Tripathi Chloride [Moles/Vol] 103 mmol/L Normal 98-107 The [facility] Comment on above: Performed By: #### C MP ####[facility] Wvaamggapx6[address] [place] [address]Dr. Airam Tripathi CO2 [Moles/Vol] 25.0 mmol/L Normal 21.0-32.0 The [facility] Comment on above: Performed By: #### C MP ####[facility] Kakvzvpntn5359 [place] [address]Dr. Airam Tripathi Creatinine [Mass/Vol] 1.27 mg/dL Critically high 0.55-1.02 The [facility] Comment on above: Performed By: #### C MP ####[facility] Bubouornri3306 [place] [address]Dr. Airam Tripathi EGFR-AF QATARI 52 mL/min/1.73m2 Critically low >=60 The [facility] Comment on above: Performed By: #### C MP ####[facility] Uyfycgmfpf4305[address] [place], [place] [address]Dr. Airam Tripathi EGFR-NON AF QATARI 43 mL/min/1.73m2 Critically low >=60 The [facility] Comment on above: Performed By: #### C MP ####[facility] Nuzrczbejk144[address] [place], [place] [address]Dr. Airam Tripathi Globulin (S) [Mass/Vol] 3.3 g/dL Normal [facility] Comment on above: Performed By: #### C MP ####[facility] Svmpjlryqa2044 [place] [address]Dr. Airam Deuce Glucose [Mass/Vol] 90 mg/dL Normal 74-106 The [facility] Comment on above: Performed By: #### C MP ####[facility] Zrfuieoxck125[address] [place], [place] [address]Dr. Ariam Tripathi Potassium [Moles/Vol] 5.1 mmol/L Normal 3.5-5.1 The [facility] Comment on above: Performed By: #### C MP ####[facility] Tmvzaduwke9265[address] [place], [place] [address]Dr. Airam Tripathi Protein [Mass/Vol] 6.4 g/dL Normal 6.4-8.2 [facility] Comment on above: Performed By: #### C MP ####[facility] Nnotawunyp4301[address] [place], [place] [address]Dr. Airam Tripathi Sodium [Moles/Vol] 134 mmol/L Critically low 136-145 Th [facility] Comment on above: Performed By: #### C MP ####[facility] Djxjdoetig0578[address] [place], [place] [address]Dr. Airam Tripathi Urea nitrogen [Mass/Vol] 33.0 mg/dL Critically high 7.0-18.0 [facility] Comment on above: Performed By: #### C MP ####[facility] Mtfklvxqrf705547 [address] [place], [place] [address]Dr. Airam Tripathi Urea nitrogen/Creatinine [Mass ratio] 26.0 mg/mg Normal [facility] Comment on above: Performed By: #### C MP ####[facility] Yilbwhredj913[address] [place], [place] [address]Dr. Airam Tripathi OSMOLALITYon 10-15-2022 Osmolality [Osmolality] 272 mosm/kg Critically low 275-295 [facility] Comment on above: Performed By: #### O SMO ####[facility] Cbtgycoxeq879[address] [place], [place] [address]Dr. Airam Tripathi BNPon 10-12-2022 Natriuretic peptide B (Bld) [Mass/Vol] 1337.0 pg/mL Critically high <=900.0 [facility] Comment on above: Performed By: #### B SURFBOARD MAKER ####[facility] Jitkhtxfdl9[address] [place], [place] [address]Dr. Airam Tripathi CBC AUTO DIFFon 10-12-2022 BASO # 0.0 103/ul Normal 0.0-0.1 [facility] Comment on above: Performed By: #### C BC ####[facility] Blygizxcee429[address] [place], [place] [address]Dr. Airam Deuce Basophils/100 WBC (Bld) 0.6 % Normal 0.2-2.0 The [facility] Comment on above: Performed By: #### C BC ####[facility] Drpwqtwokh5[address] [place] [address]Dr. Airam Tripathi EO # 0.2 103/ul Normal 0.0-0.7 The [facility] Comment on above: Performed By: #### C BC ####[facility] Dlkmkrhcqn9256 [place] [address]Dr. Airam Tripathi Eosinophils/100 WBC (Bld) 2.3 % Normal 0.9-7.0 The [facility] Comment on above: Performed By: #### C BC ####[facility] Thefyiyonv37[address] [place], [place] [address]Dr. Airam Tripathi Erythrocyte distribution width (RBC) [Ratio] 15.1 % Critically high 11.0-15.0 [facility] Comment on above: Performed By: #### C BC ####[facility] Izhnnjqrun078147 [address] [place], [place] [address]Dr. Airam Tripathi Hematocrit (Bld) [Volume fraction] 35.9 % Critically low 36.0-48.0 [facility] Comment on above: Performed By: #### C BC ####[facility] Fslclckqhj445[address] [place], [place] [address]Dr. Airam Tripathi Hemoglobin (Bld) [Mass/Vol] 11.4 g/dL Critically low 12.0-16.0 The [facility] Comment on above: Performed By: #### C BC ####[facility] Vfugbcupmi36[address] [place], [place] [address]Dr. Airam Tripathi IG # 0.03 10e3/ul Normal 0.00-0.03 The [facility] Comment on above: Performed By: #### C BC ####[facility] Bjbqatuqcu3520[address] [place], [place] [address]Dr. Airam Tripathi IG % 0.5 % Normal 0.0-0.5 The [facility] Comment on above: Performed By: #### C BC ####[facility] Ppbhmdjyrt528[address] [place], [place] [address]Dr. Selenaneil Tripathi LYMPH # 1.1 103/ul Critically low 1.2-3.8 The [facility] Comment on above: Performed By: #### C BC ####[facility] Pihddlulgz5445 [place] [phone]. Selenaneil Tripathi Lymphocytes/100 WBC (Bld) 17.2 % Critically low 20.5-60.0 [facility] Comment on above: Performed By: #### C BC ####[facility] Magxctezwi0697 [place] [address]Dr. Airam Tripathi MANUAL DIFF REQ NO Normal [facility] Comment on above: Performed By: #### C BC ####[facility] Ntzqjwmlbf5025 [place] [phone]. Airam Tripathi MCH (RBC) [Entitic mass] 28.8 pg Normal 26.7-34.0 [facility] Comment on above: Performed By: #### C BC ####[facility] Vgcexhxspa5040[address] [place], [place] [address]Dr. Airam Tripathi MCHC (RBC) [Mass/Vol] 31.8 g/dL Normal 29.9-35.2 The [facility] Comment on above: Performed By: #### C BC ####[facility] Uvglkeebje[address] [place], [place] [address]Dr. Airam Tripathi MCV (RBC) [Entitic vol] 90.7 fL Normal 81.0-99.0 [facility] Comment on above: Performed By: #### C BC ####[facility] Wjmoybsvgq890[address] [place], [place] [address]Dr. Airam Tripathi MONO # 0.5 103/ul Normal 0.3-0.8 The [facility] Comment on above: Performed By: #### C BC ####[facility] Iyjgxewoco[address] [place], [place] [address]Dr. Airam Tripathi Monocytes/100 WBC (Bld) 7.7 % Normal 1.7-12.0 The [facility] Comment on above: Performed By: #### C BC ####[facility] Owgahyxqrw20[address] [place], [place] [address]Dr. Airam Tripathi NEUT # 4.7 103/ul Normal 1.4-6.5 The [facility] Comment on above: Performed By: #### C BC ####[facility] Clttmumtbv3578 [place] [phone]. Airam Tripathi Neutrophils/100 WBC (Bld) 71.7 % Normal 43.0-75.0 [facility] Comment on above: Performed By: #### C BC ####[facility] Pmieelrpzc5107 [place] [phone]. Airam Tripathi Platelet mean volume (Bld) [Entitic vol] 8.2 fL Critically low 9.5-13.5 [facility] Comment on above: Performed By: #### C BC ####[facility] Rsbbrsxalg6740 [place] [address]Dr. Airam Tripathi PLT 292 103/ul Normal 150-450 [facility] Comment on above: Performed By: #### C BC ####[facility] Btvpexbbnt6462 [place] [address]Dr. Airam Tripathi RBC 3.96 106/ul Critically low 4.20-5.40 [facility] Comment on above: Performed By: #### C BC ####[facility] Zhocwzqnyw1590 [place] [phone]. Airam Tripathi WBC 6.6 103/ul Normal 4.0-11.0 [facility] Comment on above: Performed By: #### C BC ####[facility] Vbioztuxip8731 [place] [address]DrKianna Tripathi PROF 14(COMP METB)on 023 Albumin [Mass/Vol] 3.3 g/dL Critically low 3.4-5.0 Th e [facility] Comment on above: Performed By: #### C MP ####[facility] Jhppsbleck1265 [place] [phone] Tripathi Albumin/Globulin [Mass ratio] 0.9 {ratio} Normal [facility] Comment on above: Performed By: #### C MP ####[facility] Wlyfgbabwq5199 [place] [phone] Tripathi ALP [Catalytic activity/Vol] 130 U/L Critically high 46-116 The [facility] Comment on above: Performed By: #### C MP ####[facility] Uduujtwral1381 [place] [phone]. Airam Tripathi ALT [Catalytic activity/Vol] 23 U/L Normal 14-59 [facility] Comment on above: Performed By: #### C MP ####[facility] Vnoohuoilm0830 [place] [phone]. Airam Tripathi Anion gap [Moles/Vol] 11.7 mmol/L Normal Th e [facility] Comment on above: Performed By: #### C MP ####[facility] Ccgmcybgyq6811 [place] [phone]. Airam Tripathi AST [Catalytic activity/Vol] 23 U/L Normal 15-37 [facility] Comment on above: Performed By: #### C MP ####[facility] Hhuzkgyhto01[address] [place] [address]Dr. Airam Deuce Bilirubin [Mass/Vol] 0.3 mg/dL Normal 0.2-1.0 [facility] Comment on above: Performed By: #### C MP ####[facility] Lfoibbdrjo[address] [place], [place] [address]Dr. Airam Deuce Calcium [Mass/Vol] 8.7 mg/dL Normal 8.5-10.1 The [facility] Comment on above: Performed By: #### C MP ####[facility] Krmplwjeho5564 [place] [address]Dr. Airam Deuce Chloride [Moles/Vol] 99 mmol/L Normal 98-107 The [facility] Comment on above: Performed By: #### C MP ####[facility] Lscntkuyru1678 [place] [phone]. Airam Tripathi CO2 [Moles/Vol] 28.5 mmol/L Normal 21.0-32.0 The [facility] Comment on above: Performed By: #### C MP ####[facility] Jzqdqzpqzl8173 [place] [phone]. Selenaneil Tripathi Creatinine [Mass/Vol] 1.06 mg/dL Critically high 0.55-1.02 [facility] Comment on above: Performed By: #### C MP ####[facility] Dpjznopukv0787 [place] [phone]. Airam Tripathi EGFR-AF QATARI >60 Normal >=60 [facility] Comment on above: Performed By: #### C MP ####[facility] Ktivpthbuj6679 [place] [phone]. Airam Tripathi EGFR-NON AF QATARI 53 mL/min/1.73m2 Critically low >=60 [facility] Comment on above: Performed By: #### C MP ####[facility] Wtjvwozcci1234 [place] [phone]. Airam Tripathi Globulin (S) [Mass/Vol] 3.5 g/dL Normal [facility] Comment on above: Performed By: #### C MP ####[facility] Hauxhygccc1874 [place] [address]Dr. Airam Tripathi Glucose [Mass/Vol] 79 mg/dL Normal 74-106 [facility] Comment on above: Performed By: #### C MP ####[facility] Hpixcutssr9753 [place] [phone]. Airam Tripathi Potassium [Moles/Vol] 4.2 mmol/L Normal 3.5-5.1 [facility] Comment on above: Performed By: #### C MP ####[facility] Cxxznzlgmk0253 [place] [address]Dr. Airam Tripathi Protein [Mass/Vol] 6.8 g/dL Normal 6.4-8.2 The [facility] Comment on above: Performed By: #### C MP ####[facility] Neeuixuqor1827 [place] [address]Dr. Airam Tripathi Sodium [Moles/Vol] 135 mmol/L Critically low 136-145 [facility] Comment on above: Performed By: #### C MP ####[facility] Pkwypwovwf5558 [place] [address]Dr. Airam Tripathi Urea nitrogen [Mass/Vol] 16.0 mg/dL Normal 7.0-18.0 The [facility] Comment on above: Performed By: #### C MP ####[facility] Nkcwenawao1439 [place] [phone]. Airam Tripathi Urea nitrogen/Creatinine [Mass ratio] 15.1 mg/mg Normal [facility] Comment on above: Performed By: #### C MP ####[facility] Nakzcjdtym698[address] [place], [place] [address]Dr. Airam Tripathi XR CHEST 1 Von 10-12-2022 XR CHEST 1 V Normal [facility] PRBC LEUKOREDUCEDon 10-10-19 23 PRBC LEUKOREDUCED Normal [facility] Comment on above: Performed By: #### P RBC ####[facility] Vrkrunbcyo15[address] [place], [place] [address]Dr. Airam Tripathi CULTURE URINEon 10-08-2022 CULTURE URINE Normal [facility] Comment on above: Performed By: #### U RCX ####[facility] Swhjfldlvl497[address] [place], [place] [address]Dr. Airam Tripathi OSMOLALITYon 10-08-2022 Osmolality [Osmolality] 282 mosm/kg Normal 275-295 [facility] Comment on above: Performed By: #### O SMO ####[facility] Tdhowojvqm[address] [place], [place] [address]Dr. Airam Deuce CBC AUTO DIFFon 10-07-2022 BASO # 0.0 103/ul Normal 0.0-0.1 [facility] Comment on above: Performed By: #### C BC ####[facility] Gtcdurvsvc[address] [place], [place] [address]Dr. Airam Tripathi Basophils/100 WBC (Bld) 0.3 % Normal 0.2-2.0 The [facility] Comment on above: Performed By: #### C BC ####[facility] Tvkllywuvd11[address] [place], [place] [address]Dr. Airam Tripathi EO # 0.2 103/ul Normal 0.0-0.7 [facility] Comment on above: Performed By: #### C BC ####[facility] Onjkhgxifp7575[address] [place], [place] [address]Dr. Airam Tripathi Eosinophils/100 WBC (Bld) 3.4 % Normal 0.9-7.0 [facility] Comment on above: Performed By: #### C BC ####[facility] Orztxzogme3326 [place] [address]Dr. Airam Deuce Erythrocyte distribution width (RBC) [Ratio] 15.2 % Critically high 11.0-15.0 [facility] Comment on above: Performed By: #### C BC ####[facility] Hfjtbgjoul[address] [place], [place] [address]Dr. Airam Tripathi Hematocrit (Bld) [Volume fraction] 31.3 % Critically low 36.0-48.0 The [facility] Comment on above: Performed By: #### C BC ####[facility] Jidcxchxwo69[address] [place], [place] [address]Dr. Airam Tripathi Hemoglobin (Bld) [Mass/Vol] 9.9 g/dL Critically low 12.0-16.0 [facility] Comment on above: Performed By: #### C BC ####[facility] Kvnlqwebic[address] [place], [place] [address]DrKianna Tripathi IG # 0.03 10e3/ul Normal 0.00-0.03 [facility] [facility] Comment on above: Performed By: #### C BC ####[facility] Kofufdpahq[address] [place], [place] [address]DrKianna Tripathi IG % 0.4 % Normal 0.0-0.5 [facility] Comment on above: Performed By: #### C BC ####[facility] Xzlztxyhou[address] [place], [place] [address]DrKianna Tripathi LYMPH # 1.3 103/ul Normal 1.2-3.8 [facility] Comment on above: Performed By: #### C BC ####[facility] Hskscijuci8[address] [place], [place] [address]DrKianna Tripathi Lymphocytes/100 WBC (Bld) 19.0 % Critically low 20.5-60.0 [facility] Comment on above: Performed By: #### C BC ####[facility] Fkyugmnocp9509[address] [place], [place] [address]Dr. Airam Tripathi MANUAL DIFF REQ NO Normal [facility] Comment on above: Performed By: #### C BC ####[facility] Zlrhxomssw8002 [place] [address]Dr. Airam Deuce MCH (RBC) [Entitic mass] 28.1 pg Normal 26.7-34.0 [facility] Comment on above: Performed By: #### C BC ####[facility] Frhmkwaxzr9669 [place] [address]Dr. Airam Tripathi MCHC (RBC) [Mass/Vol] 31.6 g/dL Normal 29.9-35.2 [facility] Comment on above: Performed By: #### C BC ####[facility] Gqwhwemnnq1206 [place] [address]DrKianna Tripathi MCV (RBC) [Entitic vol] 88.9 fL Normal 81.0-99.0 [facility] Comment on above: Performed By: #### C BC ####[facility] Kunqcrysol594[address] [place], [place] [address]DrKianna Tripathi MONO # 0.6 103/ul Normal 0.3-0.8 [facility] Comment on above: Performed By: #### C BC ####[facility] Syflwovmvo347[address] [place], [place] [address]DrKianna Tripathi Monocytes/100 WBC (Bld) 9.0 % Normal 1.7-12.0 [facility] Comment on above: Performed By: #### C BC ####[facility] Gcsnrvjtda50[address] [place], [place] [address]DrKianna Tripathi NEUT # 4.5 103/ul Normal 1.4-6.5 [facility] Comment on above: Performed By: #### C BC ####[facility] Lokodpbpwb479[address] [place], [place] [address]DrKianna Tripathi Neutrophils/100 WBC (Bld) 67.9 % Normal 43.0-75.0 [facility] Comment on above: Performed By: #### C BC ####[facility] Nsmdddmurp3445[address] [place], [place] [address]DrKianna Tripathi Platelet mean volume (Bld) [Entitic vol] 9.1 fL Critically low 9.5-13.5 [facility] Comment on above: Performed By: #### C BC ####[facility] Zhbfhrrszp5020 [place] [address]Dr. Airam Tripathi PLT 256 103/ul Normal 150-450 [facility] Comment on above: Performed By: #### C BC ####[facility] Xpofdxvuxg5017 [place] [address]Dr. Airam Tripathi RBC 3.52 106/ul Critically low 4.20-5.40 [facility] Comment on above: Performed By: #### C BC ####[facility] Hxzmrjmlop5562 [place] [address]Dr. Airam Tripathi WBC 6.7 103/ul Normal 4.0-11.0 [facility] Comment on above: Performed By: #### C BC ####[facility] Tofuqweijb5128 [place] [address]DrKianna Tripathi PROF 14(COMP METB)on 023 Albumin [Mass/Vol] 2.8 g/dL Critically low 3.4-5.0 [facility] Comment on above: Performed By: #### C MP ####[facility] Fvtupfcjfq594[address] [place], [place] [address]DrKianna Tripathi Albumin/Globulin [Mass ratio] 0.9 {ratio} Normal [facility] Comment on above: Performed By: #### C MP ####[facility] Mkyrvtcidp3092 [place] [address]Dr. Airam Tripathi ALP [Catalytic activity/Vol] 118 U/L Critically high 46-116 [facility] Comment on above: Performed By: #### C MP ####[facility] Kkgsjtwjgx0066 [place] [address]DrKianna Tripathi ALT [Catalytic activity/Vol] 23 U/L Normal 14-59 [facility] Comment on above: Performed By: #### C MP ####[facility] Lexqxiayog8306 [place] [address]DrKianna Tripathi Anion gap [Moles/Vol] 12.5 mmol/L Normal [facility] Comment on above: Performed By: #### C MP ####[facility] Phiahlhtzg2541 [place] [phone]. Airam Tripathi AST [Catalytic activity/Vol] 21 U/L Normal 15-37 [facility] Comment on above: Performed By: #### C MP ####[facility] Pymlfhkbch8268 [place] [id number]. Airam Tripathi Bilirubin [Mass/Vol] 0.4 mg/dL Normal 0.2-1.0 [facility] Comment on above: Performed By: #### C MP ####[facility] Quwcmoxkpf1191 [place] [address]Dr. Airam Tripathi Calcium [Mass/Vol] 8.2 mg/dL Critically low 8.5-10.1 Th [facility] Comment on above: Performed By: #### C MP ####[facility] Stxullbrrc850847 [address] [place], [place] [address]Dr. Airam Tripathi Chloride [Moles/Vol] 99 mmol/L Normal 98-107 [facility] Comment on above: Performed By: #### C MP ####[facility] Rifwuggupg0710[address] [place], [place] [address]Dr. Airam Tripathi CO2 [Moles/Vol] 24.9 mmol/L Normal 21.0-32.0 [facility] Comment on above: Performed By: #### C MP ####[facility] Xvcdsxtqdn88[address] [place], [place] [address]Dr. Airam Tripathi Creatinine [Mass/Vol] 1.61 mg/dL Critically high 0.55-1.02 [facility] Comment on above: Performed By: #### C MP ####[facility] Ngovwxdvqa6808 [place] [phone]. Selenaneil Deuce EGFR-AF QATARI 40 mL/min/1.73m2 Critically low >=60 [facility] Comment on above: Performed By: #### C MP ####[facility] Kgdpgniuon9438[address] [place], [place] [address]Dr. Airam Tripathi EGFR-NON AF QATARI 33 mL/min/1.73m2 Critically low >=60 [facility] Comment on above: Performed By: #### C MP ####[facility] Ffufauhzvv4647 [place] [address]Dr. Airam Tripathi Globulin (S) [Mass/Vol] 3.2 g/dL Normal [facility] Comment on above: Performed By: #### C MP ####[facility] Scmdkiufid0678 [place] [address]Dr. Airam Deuce Glucose [Mass/Vol] 67 mg/dL Critically low 74-106 Th [facility] Comment on above: Performed By: #### C MP ####[facility] Uhdtvrjete5312 [place] [address]Dr. Selenaneil Deuce Potassium [Moles/Vol] 5.4 mmol/L Critically high 3.5-5.1 [facility] Comment on above: Performed By: #### C MP ####[facility] Adcnoswvyj4398 [place] [address]Dr. Airam Deuce Protein [Mass/Vol] 6.0 g/dL Critically low 6.4-8.2 Th [facility] Comment on above: Performed By: #### C MP ####[facility] Quupoeapbs754947 [address] [place], [place] [address]Dr. Airam Deuce Sodium [Moles/Vol] 131 mmol/L Critically low 136-145 Th [facility] Comment on above: Performed By: #### C MP ####[facility] Ejikcmtbpr7593 [place] [address]Dr. Airam Deuce Urea nitrogen [Mass/Vol] 43.0 mg/dL Critically high 7.0-18.0 [facility] Comment on above: Performed By: #### C MP ####[facility] Vlvmyebprm4857[address] [place], [place] [address]Dr. Airam Tripathi Urea nitrogen/Creatinine [Mass ratio] 26.7 mg/mg Normal [facility] Comment on above: Performed By: #### C MP ####[facility] Fqkzcjsqin7126[address] [place], [place] [address]Dr. Airam Tripathi CBC AUTO DIFFon 10-06-2022 BASO # 0.0 103/ul Normal 0.0-0.1 [facility] Comment on above: Performed By: #### C BC ####[facility] Lrbiobflkc5823 [place] [address]Dr. Airam Deuce Basophils/100 WBC (Bld) 0.3 % Normal 0.2-2.0 [facility] Comment on above: Performed By: #### C BC ####[facility] Qzzngpkzdm963247 [address] [place], [place] [address]Dr. Selenaneil Deuce EO # 0.2 103/ul Normal 0.0-0.7 [facility] Comment on above: Performed By: #### C BC ####[facility] Jvwwamtsss4380[address] [place], [place] [address]Dr. Airam Tripathi Eosinophils/100 WBC (Bld) 3.1 % Normal 0.9-7.0 [facility] Comment on above: Performed By: #### C BC ####[facility] Bnyhrsnqpo0909[address] [place], [place] [address]Dr. Airam Tripathi Erythrocyte distribution width (RBC) [Ratio] 15.0 % Normal 11.0-15.0 [facility] Comment on above: Performed By: #### C BC ####[facility] Frgkvmsumz2815[address] [place], [place] [address]Dr. Selenaneil Deuce Hematocrit (Bld) [Volume fraction] 30.9 % Critically low 36.0-48.0 [facility] Comment on above: Performed By: #### C BC ####[facility] Toizfjiwnk9050[address] [place], [place] [address]Dr. Airam Tripathi Hemoglobin (Bld) [Mass/Vol] 10.1 g/dL Critically low 12.0-16.0 [facility] Comment on above: Result Comment: BIJU ENT RECIEVED 2 UNITS PRBC'S Performed By: #### C BC ####[facility] Fsjcpeeopo984647 [address] [place], [place] [address]Dr. Airam Tripathi IG # 0.03 10e3/ul Normal 0.00-0.03 [facility] Comment on above: Performed By: #### C BC ####[facility] Bownvyncpo0197 [place] [phone]. Airam Tripathi IG % 0.4 % Normal 0.0-0.5 [facility] Comment on above: Performed By: #### C BC ####[facility] Ciwwotwqbc5807 [place] [address]Dr. Airam Deuce LYMPH # 1.1 103/ul Critically low 1.2-3.8 [facility] Comment on above: Performed By: #### C BC ####[facility] Oydbgepnvs0453 [place] [address]Dr. Airam Deuce Lymphocytes/100 WBC (Bld) 14.4 % Critically low 20.5-60.0 [facility] Comment on above: Performed By: #### C BC ####[facility] Blltahsjse0077 [place] [address]Dr. Airam Deuce MANUAL DIFF REQ NO Normal [facility] Comment on above: Performed By: #### C BC ####[facility] Nmwfybvlba3231 [place] [address]Dr. Airam Tripathi MCH (RBC) [Entitic mass] 28.9 pg Normal 26.7-34.0 [facility] Comment on above: Performed By: #### C BC ####[facility] Mwhftgpshu7285 [place] [address]Dr. Airam Tripathi MCHC (RBC) [Mass/Vol] 32.7 g/dL Normal 29.9-35.2 [facility] Comment on above: Performed By: #### C BC ####[facility] Obsqsszoha1228 [place] [address]Dr. Airam Tripathi MCV (RBC) [Entitic vol] 88.3 fL Normal 81.0-99.0 [facility] Comment on above: Performed By: #### C BC ####[facility] Wsqghzzrvw194247 [address] [place], [place] [address]Dr. Airam Deuce MONO # 0.6 103/ul Normal 0.3-0.8 [facility] Comment on above: Performed By: #### C BC ####[facility] Gigjveuqnv9330 [place] [phone]. Airam Tripathi Monocytes/100 WBC (Bld) 7.8 % Normal 1.7-12.0 [facility] Comment on above: Performed By: #### C BC ####[facility] Xirzgwuciv8485 [place] [address]Dr. Airam Tripathi NEUT # 5.5 103/ul Normal 1.4-6.5 [facility] Comment on above: Performed By: #### C BC ####[facility] Wxmntnfnjy9960 [place] [address]Dr. Airam Tripathi Neutrophils/100 WBC (Bld) 74.0 % Normal 43.0-75.0 [facility] Comment on above: Performed By: #### C BC ####[facility] Rysldpezzf4470 [place] [address]Dr. Airam Tripathi Platelet mean volume (Bld) [Entitic vol] 9.2 fL Critically low 9.5-13.5 [facility] Comment on above: Performed By: #### C BC ####[facility] Yhrxdowdsg615147 [address] [place], [place] [address]Dr. Airam Tripathi PLT 275 103/ul Normal 150-450 [facility] Comment on above: Performed By: #### C BC ####[facility] Cymcmdxdiv251747 [address] [place], [place] [address]Dr. Airam Tripathi RBC 3.50 106/ul Critically low 4.20-5.40 [facility] Comment on above: Performed By: #### C BC ####[facility] Acmqdsnptu2355[address] [place], [place] [address]Dr. Airam Tripathi WBC 7.4 103/ul Normal 4.0-11.0 [facility] Comment on above: Performed By: #### C BC ####[facility] Hmxzliepwh754447 [address] [place], [place] [address]Dr. Airam Deuce BASO # 0.0 103/ul Normal 0.0-0.1 [facility] Comment on above: Performed By: #### C BC ####[facility] Fuqlcwzioz891747 [address] [place], [place] [address]Dr. Airam Deuce Basophils/100 WBC (Bld) 0.4 % Normal 0.2-2.0 [facility] Comment on above: Performed By: #### C BC ####[facility] Zvfxtkgziy924747 [address] [place], [place] [address]Dr. Airam Tripathi EO # 0.2 103/ul Normal 0.0-0.7 [facility] Comment on above: Performed By: #### C BC ####[facility] Lbsvejphsw327847 [address] [place], [place] [address]Dr. Airam Tripathi Eosinophils/100 WBC (Bld) 4.5 % Normal 0.9-7.0 [facility] Comment on above: Performed By: #### C BC ####[facility] Avdcmprrbd357547 [address] [place], [place] [address]Dr. Airam Tripathi Erythrocyte distribution width (RBC) [Ratio] 15.1 % Critically high 11.0-15.0 [facility] Comment on above: Performed By: #### C BC ####[facility] Rdgmlrbwxl046147 [address] [place], [place] [address]Dr. Airam Tripathi Hematocrit (Bld) [Volume fraction] 23.0 % Critically low 36.0-48.0 [facility] Comment on above: Performed By: #### C BC ####[facility] Yawngwjyfb623147 [address] [place], [place] [address]Dr. Airam Tripathi Hemoglobin (Bld) [Mass/Vol] 7.2 g/dL Critically low 12.0-16.0 [facility] Comment on above: Performed By: #### C BC ####[facility] Nhhzbgjzwm223647 [address] [place], [place] [address]Dr. Airam Tripathi IG # 0.02 10e3/ul Normal 0.00-0.03 [facility] Comment on above: Performed By: #### C BC ####[facility] Ikfbnroovh966747 [address] [place], [place] [address]Dr. Airam Tripathi IG % 0.4 % Normal 0.0-0.5 [facility] Comment on above: Performed By: #### C BC ####[facility] Dzrpgeoiah9879 [place] [address]Dr. Selenaneil Tripathi LYMPH # 1.0 103/ul Critically low 1.2-3.8 [facility] Comment on above: Performed By: #### C BC ####[facility] Nsrrwmuiww8236 [place] [address]Dr. Selenaneil Tripathi Lymphocytes/100 WBC (Bld) 22.5 % Normal 20.5-60.0 [facility] Comment on above: Performed By: #### C BC ####[facility] Ygpumflxqt0198 [place] [address]Dr. Airam Tripathi MANUAL DIFF REQ NO Normal [facility] Comment on above: Performed By: #### C BC ####[facility] Lwrecldmds6892 [place] [address]Dr. Selenaneil Tripathi MCH (RBC) [Entitic mass] 28.3 pg Normal 26.7-34.0 [facility] Comment on above: Performed By: #### C BC ####[facility] Islmlhcxeu557147 [address] [place], [place] [address]Dr. Airam Deuce MCHC (RBC) [Mass/Vol] 31.3 g/dL Normal 29.9-35.2 [facility] Comment on above: Performed By: #### C BC ####[facility] Peglbufawb0977[address] [place], [place] [address]Dr. Airam Tripathi MCV (RBC) [Entitic vol] 90.6 fL Normal 81.0-99.0 [facility] Comment on above: Performed By: #### C BC ####[facility] Lqvmdbhzjz7618[address] [place], [place] [address]Dr. Airam Tripathi MONO # 0.5 103/ul Normal 0.3-0.8 [facility] Comment on above: Performed By: #### C BC ####[facility] Tywdyycqhx475[address] [place], [place] [address]Dr. Airam Tripathi Monocytes/100 WBC (Bld) 9.7 % Normal 1.7-12.0 [facility] Comment on above: Performed By: #### C BC ####[facility] Vjddhnyrsk47[address] [place], [place] [address]Dr. Airam Tripathi NEUT # 2.9 103/ul Normal 1.4-6.5 [facility] Comment on above: Performed By: #### C BC ####[facility] Aavdhfmfzy7078 [place] [address]Dr. Airam Tripathi Neutrophils/100 WBC (Bld) 62.5 % Normal 43.0-75.0 [facility] Comment on above: Performed By: #### C BC ####[facility] Cfjfswblxc4363 [place] [address]Dr. Airam Tripathi Platelet mean volume (Bld) [Entitic vol] 8.9 fL Critically low 9.5-13.5 [facility] Comment on above: Performed By: #### C BC ####[facility] Fknuuttgut3462 [place] [address]Dr. Airam Tripathi PLT 210 103/ul Normal 150-450 [facility] Comment on above: Performed By: #### C BC ####[facility] Gmxbkmpsvk4820[address] [place], [place] [address]Dr. Airam Tripathi RBC 2.54 106/ul Critically low 4.20-5.40 [facility] Comment on above: Performed By: #### C BC ####[facility] Wyhkjmdgrt489[address] [place], [place] [address]Dr. Airam Tripathi WBC 4.6 103/ul Normal 4.0-11.0 [facility] Comment on above: Performed By: #### C BC ####[facility] Efygmjdhpu0531 [place] [address]Dr. Airam Tripathi OSMOLALITYon 10-06-2022 Osmolality [Osmolality] 279 mosm/kg Normal 275-295 [facility] Comment on above: Performed By: #### O SMO ####[facility] Pugcvldgwn1410[address] [place], [place] [address]Dr. Airam Tripathi POINT OF CARE GLUCOSEon 09-24 Glucose [Mass/Vol] 72 mg/dL Critically low 74-106 Th [facility] Comment on above: Performed By: #### P OCGLUC ####[facility] Zubexvmame97[address] [place], [place] [address]Dr. Airam Deuce Glucose [Mass/Vol] 102 mg/dL Normal 74-106 [facility] Comment on above: Performed By: #### P OCGLUC ####[facility] Lfpyofgmnz5377 [place] [address]Dr. Airam Tripathi Glucose [Mass/Vol] 165 mg/dL Critically high 74-106 [facility] Comment on above: Performed By: #### P OCGLUC ####[facility] Oirbfjwabx9782 [place] [address]Dr. Airam Tripathi PROF 14(COMP METB)on 023 Albumin [Mass/Vol] 2.6 g/dL Critically low 3.4-5.0 [facility] Comment on above: Performed By: #### C MP ####[facility] Kgygywckti1137[address] [place], [place] [address]Dr. Airam Tripathi Albumin/Globulin [Mass ratio] 0.9 {ratio} Normal [facility] Comment on above: Performed By: #### C MP ####[facility] Hoslrylrsa1244[address] [place], [place] [address]Dr. Selenaneil Tripathi ALP [Catalytic activity/Vol] 107 U/L Normal 46-116 [facility] Comment on above: Performed By: #### C MP ####[facility] Mipjqxppoy747147 [address] [place], [place] [address]Dr. Airam Tripathi ALT [Catalytic activity/Vol] 22 U/L Normal 14-59 [facility] Comment on above: Performed By: #### C MP ####[facility] Tqxraaznpv5723[address] [place], [place] [address]Dr. Airam Tripathi Anion gap [Moles/Vol] 10.0 mmol/L Normal [facility] Comment on above: Performed By: #### C MP ####[facility] Joroirxkbf520347 [address] [place], [place] [address]Dr. Airam Tripathi AST [Catalytic activity/Vol] 19 U/L Normal 15-37 [facility] Comment on above: Performed By: #### C MP ####[facility] Thexrmenwc2159[address] [place], [place] [address]Dr. Airam Tripathi Bilirubin [Mass/Vol] 0.2 mg/dL Normal 0.2-1.0 [facility] Comment on above: Performed By: #### C MP ####[facility] Rzoaldgfgq2339[address] [place], [place] [address]Dr. Airam Tripathi Calcium [Mass/Vol] 8.1 mg/dL Critically low 8.5-10.1 Th e [facility] Comment on above: Performed By: #### C MP ####[facility] Iyamkullmu6912[address] [place], [place] [address]Dr. Airam Tripathi Chloride [Moles/Vol] 100 mmol/L Normal 98-107 [facility] Comment on above: Performed By: #### C MP ####[facility] Cushlvuibc1444[address] [place], [place] [address]Dr. Airam Tripathi CO2 [Moles/Vol] 26.2 mmol/L Normal 21.0-32.0 [facility] Comment on above: Performed By: #### C MP ####[facility] Wrrwydkkfs7578[address] [place], [place] [address]Dr. Airam Tripathi Creatinine [Mass/Vol] 1.90 mg/dL Critically high 0.55-1.02 [facility] Comment on above: Performed By: #### C MP ####[facility] Azpsgtxlnw4911[address] [place], [place] [address]Dr. Airam Tripathi EGFR-AF QATARI 33 mL/min/1.73m2 Critically low >=60 [facility] Comment on above: Performed By: #### C MP ####[facility] Loxbdiqtmj6434[address] [place], [place] [address]Dr. Airam Deuce EGFR-NON AF QATARI 27 mL/min/1.73m2 Critically low >=60 The [facility] Comment on above: Performed By: #### C MP ####[facility] Xpadyeoopf3201[address] [place], [place] [address]Dr. Airam Tripathi Globulin (S) [Mass/Vol] 2.8 g/dL Normal [facility] Comment on above: Performed By: #### C MP ####[facility] Xlvbsmxyfo45224[address] [place], [place] [address]Dr. Airam Tripathi Glucose [Mass/Vol] 115 mg/dL Critically high 74-106 T [facility] Comment on above: Performed By: #### C MP ####[facility] Xrrjyjlqdc4611 [place] [address]Dr. Airam Tripathi Potassium [Moles/Vol] 5.2 mmol/L Critically high 3.5-5.1 [facility] Comment on above: Performed By: #### C MP ####[facility] Tccuqlcxja8566 [place] [address]Dr. Airam Tripathi Protein [Mass/Vol] 5.4 g/dL Critically low 6.4-8.2 Th [facility] Comment on above: Performed By: #### C MP ####[facility] Jrdvsfvuzx0199 [place] [address]Dr. Airam Tripathi Sodium [Moles/Vol] 131 mmol/L Critically low 136-145 Th [facility] Comment on above: Performed By: #### C MP ####[facility] Mcgtfwvbap20[address] [place], [place] [address]Dr. Airam Tripathi Urea nitrogen [Mass/Vol] 41.0 mg/dL Critically high 7.0-18.0 [facility] Comment on above: Performed By: #### C MP ####[facility] Pjoybghzlo13[address] [place], [place] [address]Dr. Airam Tripathi Urea nitrogen/Creatinine [Mass ratio] 21.6 mg/mg Normal [facility] Comment on above: Performed By: #### C MP ####[facility] Lsexzjdjob9243 [place] [address]Dr. Airam Tripathi TYPE AND SCREENon 10-06-2022 TYPE AND SCREEN Negative Normal [facility] Comment on above: Performed By: #### T NS ####[facility] Losrlavrzv[address] [place], [place] [address]Dr. Airam Tripathi CBC AUTO DIFFon 10-05-2022 BASO # 0.0 103/ul Normal 0.0-0.1 [facility] Comment on above: Performed By: #### C BC ####[facility] Tfxeirvwhp2496 [place] [id number]. Airam Tripathi Basophils/100 WBC (Bld) 0.5 % Normal 0.2-2.0 [facility] Comment on above: Performed By: #### C BC ####[facility] Ulnrywjcuf6348 [place] [id number]. Airam Tripathi EO # 0.2 103/ul Normal 0.0-0.7 [facility] Comment on above: Performed By: #### C BC ####[facility] Atawjdmnzp[address] [place] [address]Dr. Airam Tripathi Eosinophils/100 WBC (Bld) 3.2 % Normal 0.9-7.0 [facility] Comment on above: Performed By: #### C BC ####[facility] [address] [place], [place] [address]Dr. Airam Tripathi Erythrocyte distribution width (RBC) [Ratio] 15.2 % Critically high 11.0-15.0 [facility] Comment on above: Performed By: #### C BC ####[facility] [address] [place], [place] [address]Dr. Airam Tripathi Hematocrit (Bld) [Volume fraction] 24.7 % Critically low 36.0-48.0 [facility] Comment on above: Performed By: #### C BC ####[facility] [address] [place] [phone]. Airam Tripathi Hemoglobin (Bld) [Mass/Vol] 7.6 g/dL Critically low 12.0-16.0 [facility] Comment on above: Performed By: #### C BC ####[facility] Oenmmuypzl8[address] [place] [phone]. Airam Tripathi IG # 0.02 10e3/ul Normal 0.00-0.03 [facility] Comment on above: Performed By: #### C BC ####[facility] Farndyoszu[address] [place], [place] [address]Dr. Airam Tripathi IG % 0.3 % Normal 0.0-0.5 [facility] Comment on above: Performed By: #### C BC ####[facility] Zlgyjasyrl9[address] [place] [phone]. Airam Deuce LYMPH # 1.1 103/ul Critically low 1.2-3.8 The [facility] Comment on above: Performed By: #### C BC ####[facility] Tlmahyufcf[address] [place] [phone]. Airam Deuce Lymphocytes/100 WBC (Bld) 18.4 % Critically low 20.5-60.0 [facility] Comment on above: Performed By: #### C BC ####[facility] Qqamtupxhj5953 [place] [phone]. Selenaneil Tripathi MANUAL DIFF REQ NO Normal [facility] Comment on above: Performed By: #### C BC ####[facility] Yqutmwozsx8816 [place] [address]Dr. Airam Deuce MCH (RBC) [Entitic mass] 28.5 pg Normal 26.7-34.0 [facility] Comment on above: Performed By: #### C BC ####[facility] Rbgfjztbuc2574 [place] [phone]. Airam Deuce MCHC (RBC) [Mass/Vol] 30.8 g/dL Normal 29.9-35.2 The [facility] Comment on above: Performed By: #### C BC ####[facility] Ydisoxrqqo1750 [place] [phone]. Airam Tripathi MCV (RBC) [Entitic vol] 92.5 fL Normal 81.0-99.0 The [facility] Comment on above: Performed By: #### C BC ####[facility] Usfcczfrdl2742 [place] [phone]. Airam Tripathi MONO # 0.6 103/ul Normal 0.3-0.8 The [facility] Comment on above: Performed By: #### C BC ####[facility] Khgbcorayn9435 [place] [phone]. Airam Tripathi Monocytes/100 WBC (Bld) 10.0 % Normal 1.7-12.0 [facility] Comment on above: Performed By: #### C BC ####[facility] Xgftkubosl0563 [place], [place] [address]Dv. Airam Tripathi NEUT # 4.0 103/ul Normal 1.4-6.5 The [facility] Comment on above: Performed By: #### C BC ####[facility] Tnuaqvaigr8014 [place], [place] [address]Kq. Airam Tripathi Neutrophils/100 WBC (Bld) 67.6 % Normal 43.0-75.0 The [facility] Comment on above: Performed By: #### C BC ####[facility] Gdunouyfqk4387 [place] [phone]. Airam Tripathi Platelet mean volume (Bld) [Entitic vol] 8.8 fL Critically low 9.5-13.5 The [facility] Comment on above: Performed By: #### C BC ####[facility] Elebimsdxy7587 [place] [phone]. Airam Tripathi PLT 226 103/ul Normal 150-450 The [facility] Comment on above: Performed By: #### C BC ####[facility] Gmtdvfdwvs7420 [place] [phone]. Airam Tripathi RBC 2.67 106/ul Critically low 4.20-5.40 The [facility] Comment on above: Performed By: #### C BC ####[facility] Enachnnahc1178 [place] [phone]. Airam Tripathi WBC 5.9 103/ul Normal 4.0-11.0 The [facility] Comment on above: Performed By: #### C BC ####[facility] Epzdreveba6315 [place] [phone]. Airam Tripathi [facility]on [facility]-24 SARS-CoV-2 (COVID-19) RNA MIKE+probe Ql (Unsp spec) Not detected Normal NOT DETECTED The [facility] Comment on above: Result Comment: When [...] for this test is supported by the Industrial Trainer of Health and Human Service's declaration that [...] Performed By: #### C VDTBH ####[facility] Gbmfamnged[address] [place], [place] [address]Dr. Airam Tripathi MAGNESIUMon 10-05-2022 Magnesium [Mass/Vol] 1.7 mg/dL Critically low 1.8-2.4 [facility] Comment on above: Performed By: #### M G, CMP ####[facility] Bhmcukjadu33[address] [place], [place] [address]Dr. Airam Tripathi POINT OF CARE GLUCOSEon 09-24 Glucose [Mass/Vol] 92 mg/dL Normal 74-106 [facility] Comment on above: Performed By: #### P OCGLUC ####[facility] Sylwgmtpjm4[address] [place], [place] [address]Dr. Airam Tripathi PROF 14(COMP METB)on 023 Albumin [Mass/Vol] 2.9 g/dL Critically low 3.4-5.0 Th e [facility] Comment on above: Performed By: #### M G, CMP ####[facility] Xtxjahtczi173[address] [place], [place] [address]Dr. Airam Tripathi Albumin/Globulin [Mass ratio] 0.9 {ratio} Normal [facility] Comment on above: Performed By: #### M G, CMP ####[facility] Rrkcpiccbq993[address] [place], [place] [address]Dr. Airam Tripathi ALP [Catalytic activity/Vol] 122 U/L Critically high 46-116 The [facility] Comment on above: Performed By: #### M G, CMP ####[facility] Icjrttfswj7955 [place] [phone]. Airam Tripathi ALT [Catalytic activity/Vol] 24 U/L Normal 14-59 [facility] Comment on above: Performed By: #### M Yumiko, CMP ####[facility] Qmpzwilhsl88[address] [place], [place] [address]Dr. Airam Tripathi Anion gap [Moles/Vol] 13.1 mmol/L Normal [facility] Comment on above: Performed By: #### Nadya Calderon, CMP ####[facility] Dvxlvpfkcy01[address] [place], [place] [address]Dr. Airam Tripathi AST [Catalytic activity/Vol] 21 U/L Normal 15-37 [facility] Comment on above: Performed By: #### Nadya Calderon, CMP ####[facility] Bogxjqmfst725[address] [place], [place] [address]Dr. Airam Tripathi Bilirubin [Mass/Vol] 0.2 mg/dL Normal 0.2-1.0 [facility] Comment on above: Performed By: #### Nadya Calderon, CMP ####[facility] Qnqdmylhds96[address] [place], [place] [address]Dr. Airam Tripathi Calcium [Mass/Vol] 8.4 mg/dL Critically low 8.5-10.1 [facility] Comment on above: Performed By: #### Nadya Calderon, CMP ####[facility] Xiiunhophr9[address] [place], [place] [address]Dr. Airam Tripathi Chloride [Moles/Vol] 102 mmol/L Normal 98-107 [facility] Comment on above: Performed By: #### Nadya Calderon, CMP ####[facility] Xidgkdbxtd[address] [place], [place] [address]Dr. Selenaneil Tripathi CO2 [Moles/Vol] 23.2 mmol/L Normal 21.0-32.0 [facility] Comment on above: Performed By: #### Nadya Calderon, CMP ####[facility] Mumzmvouus258[address] [place], [place] [address]Dr. Airam Tripathi Creatinine [Mass/Vol] 1.96 mg/dL Critically high 0.55-1.02 [facility] Comment on above: Performed By: #### M G, CMP ####[facility] Uxdhltlfqe1078 [place] [address]Dr. Selenaneil Deuce EGFR-AF QATARI 32 mL/min/1.73m2 Critically low >=60 [facility] Comment on above: Performed By: #### M G, CMP ####[facility] Oknyjzxtlf7324 [place] [address]Dr. Airam Tripathi EGFR-NON AF QATARI 26 mL/min/1.73m2 Critically low >=60 [facility] Comment on above: Performed By: #### M G, CMP ####[facility] Oqlwmxojhc3550 [place] [address]Dr. Airam Tripathi Globulin (S) [Mass/Vol] 3.2 g/dL Normal [facility] Comment on above: Performed By: #### M G, CMP ####[facility] Vvrvgvrmts[address] [place], [place] [address]Dr. Airam Tripathi Glucose [Mass/Vol] 68 mg/dL Critically low 74-106 Th [facility] Comment on above: Performed By: #### M G, CMP ####[facility] Ezprsxvjnz15[address] [place], [place] [address]Dr. Airam Tripathi Potassium [Moles/Vol] 5.3 mmol/L Critically high 3.5-5.1 [facility] Comment on above: Performed By: #### M G, CMP ####[facility] Mzxlitjybl[address] [place], [place] [address]Dr. Airam Tripathi Protein [Mass/Vol] 6.1 g/dL Critically low 6.4-8.2 Th [facility] Comment on above: Performed By: #### M G, CMP ####[facility] Xyhzvrygcq[address] [place], [place] [address]Dr. Airam Tripathi Sodium [Moles/Vol] 133 mmol/L Critically low 136-145 Th [facility] Comment on above: Performed By: #### M G, CMP ####[facility] Dnnjbweewg[address] [place], [place] [address]Dr. Airam Tripathi Urea nitrogen [Mass/Vol] 39.0 mg/dL Critically high 7.0-18.0 The [facility] Comment on above: Performed By: #### M G, CMP ####[facility] Osujszuqts[address] [place], [place] [address]Dr. Airam Tripathi Urea nitrogen/Creatinine [Mass ratio] 19.9 mg/mg Normal The [facility] Comment on above: Performed By: #### M G, CMP ####[facility] Cyqmimtglj[address] [place], [place] [address]Dr. Airam Tripathi SODIUM RANDOM URINEon 2022 Sodium (U) [Moles/Vol] 37 mmol/L Normal 30-90 e [facility] Comment on above: Performed By: #### N AU ####[facility] Qtjnqimyxj67[address] [place], [place] [address]Dr. Airam Tripathi UA RANDOM W/MICROSCOPICon BACTERIA TRACE Abnormal NONE SEEN [facility] Comment on above: Performed By: #### U AMIC ####[facility] Tuqtysltxk[address] [place], [place] [address]Dr. Airam Tripathi Bilirubin Ql (U) Negative Normal NEGATIVE [facility] Comment on above: Performed By: #### U AMIC ####[facility] Ojxuhhxtaf228[address] [place], [place] [address]Dr. Airam Tripathi CAST SEEN Abnormal NONE SEEN [facility] Comment on above: Performed By: #### U AMIC ####[facility] Klodirdqen2112[address] [place], [place] [address]Dr. Airam Tripathi Clarity (U) CLEAR Normal CLEAR [facility] Comment on above: Performed By: #### U AMIC ####[facility] Wbaqqsbzwx414[address] [place], [place] [address]Dr. Airam Tripathi Color (U) YELLOW Normal YELLOW [facility] Comment on above: Performed By: #### U AMIC ####[facility] Krstfeavui175[address] [place], [place] [address]Dr. Airam Tripathi Crystals LM Nom (Urine sed) NONE SEEN Normal NONE SEEN The [facility] Comment on above: Performed By: #### U AMIC ####[facility] Vnkpnovpyq6731 [place] [address]Dr. Airam Tripathi Epithelial cells LM Ql (Urine sed) RARE Normal NONE SEEN /RARE The [facility] Comment on above: Performed By: #### U AMIC ####[facility] Gkabpsjutc4922 [place] [address]Dr. Airam Tripathi Glucose Ql (U) Negative Normal NEGATIVE The [facility] Comment on above: Performed By: #### U AMIC ####[facility] Exmppaifgk101[address] [place], [place] [address]Dr. Airam Tripathi Hemoglobin Ql (U) Negative Normal NEGATIVE The [facility] Comment on above: Performed By: #### U AMIC ####[facility] Omwuenlqmp[address] [place], [place] [address]Dr. Airam Tripathi HYALINE CAST RARE Normal [facility] Comment on above: Performed By: #### U AMIC ####[facility] Amuftxgajp684[address] [place], [place] [address]Dr. Airam Tripathi Ketones Ql (U) TRACE Abnormal NEGATIVE The [facility] Comment on above: Performed By: #### U AMIC ####[facility] Wmsuzolngs096[address] [place], [place] [address]Dr. Airam Tripathi LEUKOCYTES Negative Normal NEGATIVE The [facility] Comment on above: Performed By: #### U AMIC ####[facility] Fcflfbwzcb9297 [place] [address]Dr. Airam Tripathi MUCOUS NONE SEEN Normal NONE SEEN The [facility] Comment on above: Performed By: #### U AMIC ####[facility] Udqabrrihz426[address] [place], [place] [address]Dr. Airam Tripathi Nitrite Ql (U) Negative Normal NEGATIVE The [facility] Comment on above: Performed By: #### U AMIC ####[facility] Kmeywdfmnv[address] [place], [place] [address]Dr. Airam Tripathi pH (U) 5.0 [pH] Normal 5-9 [facility] Comment on above: Performed By: #### U AMIC ####[facility] Hvkkifugxp1134[address] [place], [place] [address]Dr. Airam Tripathi RBC 0-2 Normal 0-2 [facility] Comment on above: Performed By: #### U AMIC ####[facility] Rvqchnhuzb8891 [place] [address]Dr. Airam Tripathi SPEC GRAVITY 1.015 Normal 1.005-<=1. 025 The [facility] Comment on above: Performed By: #### U AMIC ####[facility] Igtvdnkbmh6820 [place] [address]Dr. Airam Deuce UA PROTEIN Negative Normal NEGATIVE/ TRACE The [facility] Comment on above: Performed By: #### U AMIC ####[facility] Avxmkblsch4408 [place] [phone]. Airam Deuce Urobilinogen Qn (U) 0.2 {Ligia'U}/dL Normal 0.2 - 1. 0 The [facility] Comment on above: Performed By: #### U AMIC ####[facility] Jfklnxpsin8220[address] [place], [place] [address]Dr. Airam Deuce WBC NONE SEEN Normal NONE SEEN The [facility] Comment on above: Performed By: #### U AMIC ####[facility] Urdhfpexgi[address] [place], [place] [address]Dr. Airam Tripathi CBC AUTO DIFFon 10-04-2022 BASO # 0.0 103/ul Normal 0.0-0.1 [facility] Comment on above: Performed By: #### C BC ####[facility] Snvlijsvuz6032[address] [place], [place] [address]Dr. Airam Deuce Basophils/100 WBC (Bld) 0.3 % Normal 0.2-2.0 The [facility] Comment on above: Performed By: #### C BC ####[facility] Dhrekmjbij4835[address] [place], [place] [address]Dr. Airam Tripathi EO # 0.2 103/ul Normal 0.0-0.7 The [facility] Comment on above: Performed By: #### C BC ####[facility] Geznvpwntw7288[address] [place], [place] [address]Dr. Selenaneil Tripathi Eosinophils/100 WBC (Bld) 3.2 % Normal 0.9-7.0 [facility] Comment on above: Performed By: #### C BC ####[facility] Owcwyuztpo5453 [place] [address]Dr. Airam Tripathi Erythrocyte distribution width (RBC) [Ratio] 15.1 % Critically high 11.0-15.0 [facility] Comment on above: Performed By: #### C BC ####[facility] Ggtilkjiha68[address] [place], [place] [address]Dr. Airam Tripathi Hematocrit (Bld) [Volume fraction] 27.6 % Critically low 36.0-48.0 [facility] Comment on above: Performed By: #### C BC ####[facility] Twpduzzrkp21[address] [place], [place] [address]Dr. Airam Tripathi Hemoglobin (Bld) [Mass/Vol] 8.7 g/dL Critically low 12.0-16.0 [facility] Comment on above: Performed By: #### C BC ####[facility] Nvoceudahp65[address] [place], [place] [address]Dr. Airam Tripathi IG # 0.03 10e3/ul Normal 0.00-0.03 [facility] Comment on above: Performed By: #### C BC ####[facility] Stoktdqurc[address] [place], [place] [address]Dr. Airam Tripathi IG % 0.4 % Normal 0.0-0.5 [facility] Comment on above: Performed By: #### C BC ####[facility] Sfxjncirnb697[address] [place], [place] [address]Dr. Airam Tripathi LYMPH # 1.2 103/ul Normal 1.2-3.8 [facility] Comment on above: Performed By: #### C BC ####[facility] Wlesftebtp1218[address] [place], [place] [address]Dr. Airam Tripathi Lymphocytes/100 WBC (Bld) 16.4 % Critically low 20.5-60.0 [facility] Comment on above: Performed By: #### C BC ####[facility] Dktwjpuwma[address] [place], [place] [address]Dr. Airam Tripathi MANUAL DIFF REQ NO Normal [facility] Comment on above: Performed By: #### C BC ####[facility] Jubtdwjiua2151 [place] [phone]. Airam Deuce MCH (RBC) [Entitic mass] 28.5 pg Normal 26.7-34.0 [facility] Comment on above: Performed By: #### C BC ####[facility] Ozvvqyavlx4206 [place] [address]Dr. Airam Deuce MCHC (RBC) [Mass/Vol] 31.5 g/dL Normal 29.9-35.2 [facility] Comment on above: Performed By: #### C BC ####[facility] Cblauvnmsu8919 [place] [address]Dr. Airam Tripathi MCV (RBC) [Entitic vol] 90.5 fL Normal 81.0-99.0 [facility] Comment on above: Performed By: #### C BC ####[facility] Cjqxhmaets9[address] [place], [place] [address]Dr. Airam Tripathi MONO # 0.5 103/ul Normal 0.3-0.8 [facility] Comment on above: Performed By: #### C BC ####[facility] Eumfngcfxv[address] [place], [place] [address]Dr. Airam Tripathi Monocytes/100 WBC (Bld) 7.3 % Normal 1.7-12.0 [facility] Comment on above: Performed By: #### C BC ####[facility] Uhhhimmwbp[address] [place], [place] [address]DrKianna Tripathi NEUT # 5.4 103/ul Normal 1.4-6.5 [facility] Comment on above: Performed By: #### C BC ####[facility] Iayefznkoy523[address] [place], [place] [address]DrKianna Tripathi Neutrophils/100 WBC (Bld) 72.4 % Normal 43.0-75.0 [facility] Comment on above: Performed By: #### C BC ####[facility] Tmmcjlfgff[address] [place], [place] [address]DrKianna Tripathi Platelet mean volume (Bld) [Entitic vol] 9.1 fL Critically low 9.5-13.5 [facility] Comment on above: Performed By: #### C BC ####[facility] Cehwndgncj9035 [place] [address]Dr. Airam Tripathi PLT 304 103/ul Normal 150-450 [facility] Comment on above: Performed By: #### C BC ####[facility] Mimiwelybf6595 [place] [phone]. Airam Tripathi RBC 3.05 106/ul Critically low 4.20-5.40 [facility] Comment on above: Performed By: #### C BC ####[facility] Esnivuphpm3553 [place] [phone]. Airam Tripathi WBC 7.4 103/ul Normal 4.0-11.0 [facility] Comment on above: Performed By: #### C BC ####[facility] Ixgkggaxxu1215 [place] [address]DrKianna Tripathi PROF 14(COMP METB)on 023 Albumin [Mass/Vol] 3.3 g/dL Critically low 3.4-5.0 [facility] Comment on above: Performed By: #### C MP ####[facility] Zzzxedaatj1515 [place] [address]DrKianna Tripathi Albumin/Globulin [Mass ratio] 0.9 {ratio} Normal [facility] Comment on above: Performed By: #### C MP ####[facility] Mzbigcyayx9736 [place] [address]Dr. Airam Tripathi ALP [Catalytic activity/Vol] 127 U/L Critically high 46-116 [facility] Comment on above: Performed By: #### C MP ####[facility] Exfrbtpelv0934 [place] [phone] Tripathi ALT [Catalytic activity/Vol] 29 U/L Normal 14-59 [facility] Comment on above: Performed By: #### C MP ####[facility] Vmfvhufesa8325 [place] [phone] Tripathi Anion gap [Moles/Vol] 14.6 mmol/L Normal [facility] Comment on above: Performed By: #### C MP ####[facility] Oerraupyfy8505 [place] [phone]. Airam Tripathi AST [Catalytic activity/Vol] 28 U/L Normal 15-37 [facility] Comment on above: Performed By: #### C MP ####[facility] Tevjdnaahe2112 [place] [phone]. Airam Tripathi Bilirubin [Mass/Vol] 0.3 mg/dL Normal 0.2-1.0 [facility] Comment on above: Performed By: #### C MP ####[facility] Jhdnpcgsod9018 [place] [phone]. Airam Tripathi Calcium [Mass/Vol] 8.9 mg/dL Normal 8.5-10.1 [facility] Comment on above: Performed By: #### C MP ####[facility] [address]jzebgeylf[address] [place], [place] [address]Dr. Airam Tripathi Chloride [Moles/Vol] 99 mmol/L Normal 98-107 [facility] Comment on above: Performed By: #### C MP ####[facility] Kjaqvlhhnm5865 [place] [phone]. Airam Tripathi CO2 [Moles/Vol] 25.1 mmol/L Normal 21.0-32.0 [facility] Comment on above: Performed By: #### C MP ####[facility] Fxwrxhdbun6732 [place] [phone]. Airam Tripathi Creatinine [Mass/Vol] 1.42 mg/dL Critically high 0.55-1.02 [facility] Comment on above: Performed By: #### C MP ####[facility] Aqyfoszwjk9927 [place] [phone]. Airam Tripathi EGFR-AF QATARI 46 mL/min/1.73m2 Critically low >=60 The [facility] Comment on above: Performed By: #### C MP ####[facility] Jkosrkyzwk9494 [place] [phone]. Airam Deuce EGFR-NON AF QATARI 38 mL/min/1.73m2 Critically low >=60 The [facility] Comment on above: Performed By: #### C MP ####[facility] Ywsopmzwlt8870 [place] [address]Dr. Airam Deuce Globulin (S) [Mass/Vol] 3.6 g/dL Normal [facility] Comment on above: Performed By: #### C MP ####[facility] Ibwigaizjq4783 [place] [address]Dr. Selenaneil Deuce Glucose [Mass/Vol] 79 mg/dL Normal 74-106 [facility] Comment on above: Performed By: #### C MP ####[facility] Qdhxhytqvb0365 [place] [address]Dr. Airam Tripathi Potassium [Moles/Vol] 5.7 mmol/L Critically high 3.5-5.1 [facility] Comment on above: Performed By: #### C MP ####[facility] Qmoaqmomha4016 [place] [address]Dr. Airam Tripathi Protein [Mass/Vol] 6.9 g/dL Normal 6.4-8.2 [facility] Comment on above: Performed By: #### C MP ####[facility] Sgonuflrpf0927 [place] [address]Dr. Airam Tripathi Sodium [Moles/Vol] 133 mmol/L Critically low 136-145 Th [facility] Comment on above: Performed By: #### C MP ####[facility] Foraitgwud6162 [place] [address]Dr. Airam Tripathi Urea nitrogen [Mass/Vol] 35.0 mg/dL Critically high 7.0-18.0 [facility] Comment on above: Performed By: #### C MP ####[facility] Excixwusnj1427 [place] [address]Dr. Airam Tripathi Urea nitrogen/Creatinine [Mass ratio] 24.6 mg/mg Normal [facility] Comment on above: Performed By: #### C MP ####[facility] Okhonldihg7001 [place] [address]Dr. Airam Tripathi OSMOLALITYon 10-02-2022 Osmolality [Osmolality] 277 mosm/kg Normal 275-295 [facility] Comment on above: Performed By: #### O SMO ####[facility] Lskcazwemq4310 [place] [address]Dr. Airam Tripathi CBC AUTO DIFFon 09-29-2022 BASO # 0.0 103/ul Normal 0.0-0.1 [facility] Comment on above: Performed By: #### C BC ####[facility] Ctguuqcaol1092 [place] [address]Dr. Airam Tripathi Basophils/100 WBC (Bld) 0.5 % Normal 0.2-2.0 [facility] Comment on above: Performed By: #### C BC ####[facility] Piaieluluj[address] [place], [place] [address]Dr. Airam Tripathi EO # 0.2 103/ul Normal 0.0-0.7 [facility] Comment on above: Performed By: #### C BC ####[facility] Pchxnwufrz236[address] [place], [place] [address]Dr. Airam Tripathi Eosinophils/100 WBC (Bld) 3.2 % Normal 0.9-7.0 [facility] Comment on above: Performed By: #### C BC ####[facility] Tqfxrepqyp309647 [address] [place], [place] [address]Dr. Airam Tripathi Erythrocyte distribution width (RBC) [Ratio] 15.1 % Critically high 11.0-15.0 [facility] Comment on above: Performed By: #### C BC ####[facility] Taxbxmrgxv537347 [address] [place], [place] [address]Dr. Airam Tripathi Hematocrit (Bld) [Volume fraction] 26.2 % Critically low 36.0-48.0 [facility] Comment on above: Performed By: #### C BC ####[facility] Nqogfnfxwr3864[address] [place], [place] [address]Dr. Airam Tripathi Hemoglobin (Bld) [Mass/Vol] 8.1 g/dL Critically low 12.0-16.0 [facility] Comment on above: Performed By: #### C BC ####[facility] Azkojffmug8840[address] [place], [place] [address]Dr. Airam Tripathi IG # 0.02 10e3/ul Normal 0.00-0.03 [facility] Comment on above: Performed By: #### C BC ####[facility] Kgowotovar[address] [place] [address]DrKianna Airam Tripathi IG % 0.4 % Normal 0.0-0.5 [facility] Comment on above: Performed By: #### C BC ####[facility] Snmgnwjjsk3698 [place] [address]DrKianna Airam Deuce LYMPH # 1.3 103/ul Normal 1.2-3.8 [facility] Comment on above: Performed By: #### C BC ####[facility] Jqiwnuaxhb7550[address] [place], [place] [address]DrKianna Airam Deuce Lymphocytes/100 WBC (Bld) 22.6 % Normal 20.5-60.0 [facility] Comment on above: Performed By: #### C BC ####[facility] Bnddmhmldb636[address] [place], [place] [address]DrKianna Airam Deuce MANUAL DIFF REQ NO Normal [facility] Comment on above: Performed By: #### C BC ####[facility] Izhplzweoe5398[address] [place], [place] [address]DrKianna Airam Deuce MCH (RBC) [Entitic mass] 28.0 pg Normal 26.7-34.0 [facility] Comment on above: Performed By: #### C BC ####[facility] Rhfhxenwxu7655[address] [place], [place] [address]DrKianna Airam Deuce MCHC (RBC) [Mass/Vol] 30.9 g/dL Normal 29.9-35.2 [facility] Comment on above: Performed By: #### C BC ####[facility] Qqzbkayevp786447 [address] [place], [place] [address]DrKianna Airam Deuce MCV (RBC) [Entitic vol] 90.7 fL Normal 81.0-99.0 [facility] Comment on above: Performed By: #### C BC ####[facility] Wnicrwitia319147 [address] [place], [place] [address]DrKianna Tripathi MONO # 0.5 103/ul Normal 0.3-0.8 [facility] Comment on above: Performed By: #### C BC ####[facility] Lcplryodxd[address] [place] [address]Dr. Airam Tripathi Monocytes/100 WBC (Bld) 9.6 % Normal 1.7-12.0 [facility] Comment on above: Performed By: #### C BC ####[facility] Dfchgakodx3449 [place] [address]Dr. Airam Tripathi NEUT # 3.6 103/ul Normal 1.4-6.5 [facility] Comment on above: Performed By: #### C BC ####[facility] Jnpilcvuki6304 [place] [address]Dr. Airam Tripathi Neutrophils/100 WBC (Bld) 63.7 % Normal 43.0-75.0 [facility] Comment on above: Performed By: #### C BC ####[facility] Vehsrawcnt8701[address] [place], [place] [address]Dr. Airam Tripathi Platelet mean volume (Bld) [Entitic vol] 9.4 fL Critically low 9.5-13.5 [facility] Comment on above: Performed By: #### C BC ####[facility] Mxifzceuyk457447 [address] [place], [place] [address]Dr. Airam Tripathi PLT 258 103/ul Normal 150-450 [facility] Comment on above: Performed By: #### C BC ####[facility] Onxoryefrg3944 [place] [address]Dr. Airam Tripathi RBC 2.89 106/ul Critically low 4.20-5.40 [facility] Comment on above: Performed By: #### C BC ####[facility] Qoldhzabca6595 [place] [address]Dr. Airam Tripathi WBC 5.6 103/ul Normal 4.0-11.0 [facility] Comment on above: Performed By: #### C BC ####[facility] Rpweqyddlj7148 [place] [address]DrKianna Tripathi PROF 14(COMP METB)on 04-06-2 023 Albumin [Mass/Vol] 3.0 g/dL Critically low 3.4-5.0 [facility] Comment on above: Performed By: #### C MP ####[facility] Pmmlvrekug0250 [place] [address]Dr. Airam Tripathi Albumin/Globulin [Mass ratio] 1.1 {ratio} Normal [facility] Comment on above: Performed By: #### C MP ####[facility] Unirybtbzd[address] [place] [address]Dr. Airam Tripathi ALP [Catalytic activity/Vol] 102 U/L Normal 46-116 [facility] Comment on above: Performed By: #### C MP ####[facility] Pjathuclmi509[address] [place], [place] [address]Dr. Airam Tripathi ALT [Catalytic activity/Vol] 20 U/L Normal 14-59 [facility] Comment on above: Performed By: #### C MP ####[facility] Izmkmmhssp397647 [address] [place], [place] [address]Dr. Airam Tripathi Anion gap [Moles/Vol] 11.1 mmol/L Normal Th [facility] Comment on above: Performed By: #### C MP ####[facility] Pgjjsliwjl6969[address] [place], [place] [address]Dr. Airam Tripathi AST [Catalytic activity/Vol] 18 U/L Normal 15-37 [facility] Comment on above: Performed By: #### C MP ####[facility] Mvhanrxhmz426447 [address] [place], [place] [address]Dr. Airam Tripathi Bilirubin [Mass/Vol] 0.2 mg/dL Normal 0.2-1.0 [facility] Comment on above: Performed By: #### C MP ####[facility] Iyfqqpurlp3064[address] [place], [place] [address]Dr. Airam Tripathi Calcium [Mass/Vol] 8.0 mg/dL Critically low 8.5-10.1 [facility] Comment on above: Performed By: #### C MP ####[facility] Ehrfwzrzbv827[address] [place], [place] [address]Dr. Airam Tripathi Chloride [Moles/Vol] 100 mmol/L Normal 98-107 [facility] Comment on above: Performed By: #### C MP ####[facility] Uqliuhffux5333 [place] [address]Dr. Airam Tripathi CO2 [Moles/Vol] 24.8 mmol/L Normal 21.0-32.0 [facility] Comment on above: Performed By: #### C MP ####[facility] Yfcivolohz5229 [place] [address]Dr. Airam Tripathi Creatinine [Mass/Vol] 1.11 mg/dL Critically high 0.55-1.02 [facility] Comment on above: Performed By: #### C MP ####[facility] Snpezopzsz5310 [place] [address]Dr. Airam Tripathi EGFR-AF QATARI >60 Normal >=60 [facility] Comment on above: Performed By: #### C MP ####[facility] Qkcnjykrdw3806 [place] [address]Dr. Airam Deuce EGFR-NON AF QATARI 50 mL/min/1.73m2 Critically low >=60 [facility] Comment on above: Performed By: #### C MP ####[facility] Lzlqpazuls0477 [place] [address]Dr. Airam Tripathi Globulin (S) [Mass/Vol] 2.8 g/dL Normal [facility] Comment on above: Performed By: #### C MP ####[facility] Jvvtcqubso8153 [place] [address]Dr. Airam Tripathi Glucose [Mass/Vol] 77 mg/dL Normal 74-106 [facility] Comment on above: Performed By: #### C MP ####[facility] Ntjwifjszh1056 [place] [address]Dr. Airam Tripathi Potassium [Moles/Vol] 4.9 mmol/L Normal 3.5-5.1 [facility] Comment on above: Performed By: #### C MP ####[facility] Dkqnxvizhb0214 [place] [address]Dr. Airam Tripathi Protein [Mass/Vol] 5.8 g/dL Critically low 6.4-8.2 Th [facility] Comment on above: Performed By: #### C MP ####[facility] Dcfkgwryba061647 [address] [place], [place] [address]Dr. Airam Tripathi Sodium [Moles/Vol] 131 mmol/L Critically low 136-145 [facility] Comment on above: Performed By: #### C MP ####[facility] Yzcgdtojya784047 [address] [place], [place] [address]Dr. Airam Tripathi Urea nitrogen [Mass/Vol] 33.0 mg/dL Critically high 7.0-18.0 [facility] Comment on above: Performed By: #### C MP ####[facility] Tiwbrzmgvo128447 [address] [place], [place] [address]Dr. Airam Tripathi Urea nitrogen/Creatinine [Mass ratio] 29.7 mg/mg Normal [facility] Comment on above: Performed By: #### C MP ####[facility] Zmfcfifldc468547 [address] [place], [place] [address]Dr. Airam Tripathi ECHOCARDIO M/2D COMPLETEon 0 09-21-2022 ECHOCARDIO M/2D COMPLETE Normal [facility] OSMOLALITYon 09-21-2022 Osmolality [Osmolality] 282 mosm/kg Normal 275-295 [facility] Comment on above: Performed By: #### O SMO ####[facility] Medkrzjqnb212047 [address] [place], [place] [address]Dr. Airam Tripathi PHOSPHOLIPIDSon 09-21-2022 Phospholipids, Serum 249 mg/dL Normal 151-288 [facility] Comment on above: Performed By: #### P HOSLIP ####[facility] Hnyiunopjk978747 [address] [place], [place] [address]Dr. Airam Tripathi CBC AUTO DIFFon 09-20-2022 BASO # 0.0 103/ul Normal 0.0-0.1 [facility] Comment on above: Performed By: #### C BC ####[facility] Jquqmhrgnl096047 [address] [place], [place] [address]Dr. Airam Tripathi Basophils/100 WBC (Bld) 0.5 % Normal 0.2-2.0 [facility] Comment on above: Performed By: #### C BC ####[facility] Jvywvdzipp7274 [place] [id number]. Airam Tripathi EO # 0.2 103/ul Normal 0.0-0.7 [facility] Comment on above: Performed By: #### C BC ####[facility] Hqprayjjzn9173 [place] [address]Dr. Airam Tripathi Eosinophils/100 WBC (Bld) 2.9 % Normal 0.9-7.0 [facility] Comment on above: Performed By: #### C BC ####[facility] Njameduxkk579[address] [place], [place] [address]Dr. Airam Tripathi Erythrocyte distribution width (RBC) [Ratio] 15.4 % Critically high 11.0-15.0 [facility] Comment on above: Performed By: #### C BC ####[facility] Vnihfbjiqs431347 [address] [place], [place] [address]Dr. Airam Tripathi Hematocrit (Bld) [Volume fraction] 26.3 % Critically low 36.0-48.0 [facility] Comment on above: Performed By: #### C BC ####[facility] Pwlcdgdftm326647 [address] [place], [place] [address]Dr. Airam Tripathi Hemoglobin (Bld) [Mass/Vol] 8.2 g/dL Critically low 12.0-16.0 [facility] Comment on above: Performed By: #### C BC ####[facility] Yirdrchsuo5392 [place] [address]Dr. Airam Tripathi IG # 0.03 10e3/ul Normal 0.00-0.03 [facility] Comment on above: Performed By: #### C BC ####[facility] Svtuvokmix764[address] [place], [place] [address]Dr. Airam Tripathi IG % 0.4 % Normal 0.0-0.5 [facility] Comment on above: Performed By: #### C BC ####[facility] Lxwkqmqzmv728747 [address] [place], [place] [address]Dr. Selenaneil Tripathi LYMPH # 1.9 103/ul Normal 1.2-3.8 [facility] Comment on above: Performed By: #### C BC ####[facility] Grjiokeauz7256 [place] [phone]. Airam Tripathi Lymphocytes/100 WBC (Bld) 23.0 % Normal 20.5-60.0 [facility] Comment on above: Performed By: #### C BC ####[facility] Qiasmcwqcu6701 [place] [phone]. Airam Deuce MANUAL DIFF REQ NO Normal [facility] Comment on above: Performed By: #### C BC ####[facility] Tifghhjewn0881 [place] [phone]. Airam Deuce MCH (RBC) [Entitic mass] 28.5 pg Normal 26.7-34.0 [facility] Comment on above: Performed By: #### C BC ####[facility] Jjvltttexf1059 [place] [address]Dr. Airam Deuce MCHC (RBC) [Mass/Vol] 31.2 g/dL Normal 29.9-35.2 [facility] Comment on above: Performed By: #### C BC ####[facility] Zxczhluuuz74[address] [place], [place] [address]Dr. Airam Deuce MCV (RBC) [Entitic vol] 91.3 fL Normal 81.0-99.0 [facility] Comment on above: Performed By: #### C BC ####[facility] Kdqcarkysj7547[address] [place], [place] [address]Dr. Selenaneil Deuce MONO # 0.7 103/ul Normal 0.3-0.8 [facility] Comment on above: Performed By: #### C BC ####[facility] Ispgswrdqh3038 [place] [address]Dr. Airam Deuce Monocytes/100 WBC (Bld) 7.7 % Normal 1.7-12.0 [facility] Comment on above: Performed By: #### C BC ####[facility] Gulhdinczh5314 [place] [address]Dr. Selenaneil Deuce NEUT # 5.5 103/ul Normal 1.4-6.5 [facility] Comment on above: Performed By: #### C BC ####[facility] Hkzclamauw7112 [place] [phone]. Airam Tripathi Neutrophils/100 WBC (Bld) 65.5 % Normal 43.0-75.0 [facility] Comment on above: Performed By: #### C BC ####[facility] Zajutzqacu0499 [place] [address]Dr. Airam Deuce Platelet mean volume (Bld) [Entitic vol] 9.1 fL Critically low 9.5-13.5 [facility] Comment on above: Performed By: #### C BC ####[facility] Hmaohacoik7066 [place] [address]Dr. Airam Tripathi PLT 258 103/ul Normal 150-450 [facility] Comment on above: Performed By: #### C BC ####[facility] Bxeuytrbwd6305 [place] [address]Dr. Airam Tripathi RBC 2.88 106/ul Critically low 4.20-5.40 [facility] Comment on above: Performed By: #### C BC ####[facility] Oqhkqemjlq3503 [place] [phone]. Airam Tripathi WBC 8.4 103/ul Normal 4.0-11.0 [facility] Comment on above: Performed By: #### C BC ####[facility] Ystvqfeejt0752 [place] [address]Dr. Airam Tripathi PROF CHEM 8 (BAS METB)on Anion gap [Moles/Vol] 10.3 mmol/L Normal [facility] Comment on above: Performed By: #### B MP ####[facility] Iutogclisx0991 [place] [address]Dr. Airam Tripathi Calcium [Mass/Vol] 7.9 mg/dL Critically low 8.5-10.1 [facility] Comment on above: Performed By: #### B MP ####[facility] Evxuvcmvwc1928 [place] [address]Dr. Airam Tripathi Chloride [Moles/Vol] 98 mmol/L Normal 98-107 [facility] Comment on above: Performed By: #### B MP ####[facility] Xbtazowray6046 [place] [phone]. Airam Tripathi CO2 [Moles/Vol] 27.5 mmol/L Normal 21.0-32.0 [facility] Comment on above: Performed By: #### B MP ####[facility] Ckonswjiel1838 [place] [phone]. Airam Tripathi Creatinine [Mass/Vol] 1.44 mg/dL Critically high 0.55-1.02 [facility] Comment on above: Performed By: #### B MP ####[facility] Iturljjkhs6456 [place] [phone]. Airam Tripathi EGFR-AF QATARI 45 mL/min/1.73m2 Critically low >=60 [facility] Comment on above: Performed By: #### B MP ####[facility] Oxqwfwxhwb786[address] [place], [place] [address]Dr. Selenaneil Deuce EGFR-NON AF QATARI 37 mL/min/1.73m2 Critically low >=60 [facility] Comment on above: Performed By: #### B MP ####[facility] Rancskjjgx3290 [place] [phone]. Airam Tripathi Glucose [Mass/Vol] 91 mg/dL Normal 74-106 [facility] Comment on above: Performed By: #### B MP ####[facility] Xfwhymjyua[address] [place], [place] [address]Dr. Selenaneil Tripathi Potassium [Moles/Vol] 4.8 mmol/L Normal 3.5-5.1 [facility] Comment on above: Performed By: #### B MP ####[facility] Qtwxfbhipc7218 [place] [phone]. Selenaneil Tripathi Sodium [Moles/Vol] 131 mmol/L Critically low 136-145 Th [facility] Comment on above: Performed By: #### B MP ####[facility] Pjtueqwxwv504[address] [place], [place] [address]Dr. Selenaneil Tripathi Urea nitrogen [Mass/Vol] 40.0 mg/dL Critically high 7.0-18.0 [facility] Comment on above: Performed By: #### B MP ####[facility] Qjpcugooaq5107 [place] [phone]. Airam Tripathi Urea nitrogen/Creatinine [Mass ratio] 27.8 mg/mg Normal [facility] Comment on above: Performed By: #### B MP ####[facility] Vblgkcymcg7566 [place] [phone]. Airam Tripathi Anion gap [Moles/Vol] 10.6 mmol/L Normal [facility] Comment on above: Performed By: #### B MP ####[facility] Rwtvyzvfdg[address] [place], [place] [address]Dr. Airam Tripathi Calcium [Mass/Vol] 7.9 mg/dL Critically low 8.5-10.1 [facility] Comment on above: Performed By: #### B MP ####[facility] Obwuglvnis7928[address] [place], [place] [address]Dr. Airam Tripathi Chloride [Moles/Vol] 101 mmol/L Normal 98-107 [facility] Comment on above: Performed By: #### B MP ####[facility] Fhxgqfvfns50[address] [place], [place] [address]Dr. Airam Tripathi CO2 [Moles/Vol] 27.4 mmol/L Normal 21.0-32.0 [facility] Comment on above: Performed By: #### B MP ####[facility] Lbedimaphr2625[address] [place], [place] [address]Dr. Airam Tripathi Creatinine [Mass/Vol] 1.35 mg/dL Critically high 0.55-1.02 [facility] Comment on above: Performed By: #### B MP ####[facility] Whjihfgswq5208 [place] [phone]. Airam Deuce EGFR-AF QATARI 48 mL/min/1.73m2 Critically low >=60 [facility] Comment on above: Performed By: #### B MP ####[facility] Dduhbdwcvl34[address] [place], [place] [address]Dr. Selenaneil Deuce EGFR-NON AF QATARI 40 mL/min/1.73m2 Critically low >=60 [facility] Comment on above: Performed By: #### B MP ####[facility] Wbnpbqdyfk5232 [place] [address]Dr. Airam Tripathi Glucose [Mass/Vol] 114 mg/dL Critically high 74-106 [facility] Comment on above: Performed By: #### B MP ####[facility] Xvcvjkykzw1428 [place] [address]Dr. Airam Tripathi Potassium [Moles/Vol] 5.0 mmol/L Normal 3.5-5.1 [facility] Comment on above: Performed By: #### B MP ####[facility] Flvxajtcdo988[address] [place], [place] [address]Dr. Airam Tripathi Sodium [Moles/Vol] 134 mmol/L Critically low 136-145 Th [facility] Comment on above: Performed By: #### B MP ####[facility] Snvbmjrfru8338[address] [place], [place] [address]Dr. Airam Tripathi Urea nitrogen [Mass/Vol] 40.0 mg/dL Critically high 7.0-18.0 [facility] Comment on above: Performed By: #### B MP ####[facility] Ysvaiovirw6532[address] [place], [place] [address]Dr. Airam Tripathi Urea nitrogen/Creatinine [Mass ratio] 29.6 mg/mg Normal [facility] Comment on above: Performed By: #### B MP ####[facility] Wnuahcjjpy1517[address] [place], [place] [address]Dr. Airam Tripathi PTH INTACTon 09-20-2022 PTH, Intact 104 pg/mL Critically high 15-65 [facility] Comment on above: Performed By: #### P THINT ####[facility] Bthgssfbpq510[address] [place], [place] [address]Dr. Airam Tripathi BNPon 09-19-2022 Natriuretic peptide B (Bld) [Mass/Vol] 1272.0 pg/mL Critically high <=900.0 [facility] Comment on above: Performed By: #### H STROPN, TSH, K, BNP ####[facility] Lkvgifuyrd9169[address] [place], [place] [address]Dr. Selenaneil Deuce CBC AUTO DIFFon 09-19-2022 BASO # 0.0 103/ul Normal 0.0-0.1 [facility] Comment on above: Performed By: #### C BC ####[facility] Khhdrtzmqf0026 [place] [address]Dr. Selenaneil Deuce Basophils/100 WBC (Bld) 0.5 % Normal 0.2-2.0 [facility] Comment on above: Performed By: #### C BC ####[facility] Mfkduajsfn367[address] [place], [place] [address]Dr. Airam Tripathi EO # 0.2 103/ul Normal 0.0-0.7 [facility] Comment on above: Performed By: #### C BC ####[facility] Vmddrpgluf916[address] [place], [place] [address]Dr. Airam Tripathi Eosinophils/100 WBC (Bld) 2.6 % Normal 0.9-7.0 [facility] Comment on above: Performed By: #### C BC ####[facility] Xkoajtupyj3333[address] [place], [place] [address]Dr. Airam Tripathi Erythrocyte distribution width (RBC) [Ratio] 15.5 % Critically high 11.0-15.0 [facility] Comment on above: Performed By: #### C BC ####[facility] Vynotnttcl39[address] [place], [place] [address]Dr. Airam Tripathi Hematocrit (Bld) [Volume fraction] 31.1 % Critically low 36.0-48.0 [facility] Comment on above: Performed By: #### C BC ####[facility] Erkpeejflr207[address] [place], [place] [address]Dr. Airam Tripathi Hemoglobin (Bld) [Mass/Vol] 9.6 g/dL Critically low 12.0-16.0 [facility] Comment on above: Performed By: #### C BC ####[facility] Phpkcykyad5049[address] [place], [place] [address]Dr. Airam Tripathi IG # 0.04 10e3/ul Critically high 0.00-0.03 [facility] Comment on above: Performed By: #### C BC ####[facility] Zuubtvdwra40[address] [place], [place] [address]Dr. Airam Tripathi IG % 0.5 % Normal 0.0-0.5 [facility] Comment on above: Performed By: #### C BC ####[facility] Ikoooaozyq0895 [place] [address]DrKianna Tripathi LYMPH # 1.0 103/ul Critically low 1.2-3.8 [facility] Comment on above: Performed By: #### C BC ####[facility] Idejygasvf8962 [place] [address]DrKianna Tripathi Lymphocytes/100 WBC (Bld) 12.0 % Critically low 20.5-60.0 [facility] Comment on above: Performed By: #### C BC ####[facility] Cmtodieohh[address] [place], [place] [address]DrKianna Tripathi MANUAL DIFF REQ NO Normal [facility] Comment on above: Performed By: #### C BC ####[facility] Ejzqupqmry[address] [place], [place] [address]DrKianna Tripathi MCH (RBC) [Entitic mass] 28.2 pg Normal 26.7-34.0 [facility] Comment on above: Performed By: #### C BC ####[facility] Djgtrlippa314[address] [place], [place] [address]DrKianna Tripathi MCHC (RBC) [Mass/Vol] 30.9 g/dL Normal 29.9-35.2 [facility] Comment on above: Performed By: #### C BC ####[facility] Gjonsbmfej[address] [place], [place] [address]DrKianna Tripathi MCV (RBC) [Entitic vol] 91.5 fL Normal 81.0-99.0 [facility] Comment on above: Performed By: #### C BC ####[facility] Nrbaegzhub[address] [place], [place] [address]DrKianna Tripathi MONO # 0.5 103/ul Normal 0.3-0.8 [facility] Comment on above: Performed By: #### C BC ####[facility] Mxsbqwufyu[address] [place], [place] [address]DrKianna Tripathi Monocytes/100 WBC (Bld) 6.4 % Normal 1.7-12.0 [facility] Comment on above: Performed By: #### C BC ####[facility] [address] [place] [address]Dr. Airam Tripathi NEUT # 6.4 103/ul Normal 1.4-6.5 [facility] Comment on above: Performed By: #### C BC ####[facility] [address]twgrjp[address] [place] [address]Dr. Airam Tripathi Neutrophils/100 WBC (Bld) 78.0 % Critically high 43.0-75.0 The [facility] Comment on above: Performed By: #### C BC ####[facility] [address]wnsixc[address] [place] [address]Dr. Airam Tripathi Platelet mean volume (Bld) [Entitic vol] 9.1 fL Critically low 9.5-13.5 The [facility] Comment on above: Performed By: #### C BC ####[facility] Kiqpjecthi[address] [place], [place] [address]Dr. Airam Tripathi PLT 318 103/ul Normal 150-450 [facility] Comment on above: Performed By: #### C BC ####[facility] Vwqixegber[address] [place], [place] [address]Dr. Airam Tripathi RBC 3.40 106/ul Critically low 4.20-5.40 The [facility] Comment on above: Performed By: #### C BC ####[facility] Flqwmivyub78[address] [place], [place] [address]Dr. Airam Tripathi WBC 8.2 103/ul Normal 4.0-11.0 The [facility] Comment on above: Performed By: #### C BC ####[facility] Tkcgbriqeu[address] [place], [place] [address]Dr. Airam Tripathi [facility]25 SARS-CoV-2 (COVID-19) RNA MIKE+probe Ql (Unsp spec) Not detected Normal NOT DETECTED [facility] Comment on above: Result Comment: When [...] for this test is supported by the Industrial Trainer of Health and Human Service's declaration that [...] Performed By: #### C VDTBH ####[facility] Htczmsxisg089[address] [place], [place] [address]Dr. Airam Tripathi LACTATE/LACTIC ACIDon 2022 Lactate [Moles/Vol] 0.4 mmol/L Normal 0.4-2.0 [facility] Comment on above: Performed By: #### L ACT ####[facility] Scuvqozxxh8[address] [place], [place] [address]Dr. Airam Tripathi POTASSIUMon 09-19-2022 Potassium [Moles/Vol] 6.3 mmol/L Critically high 3.5-5.1 The [facility] Comment on above: Performed By: #### H STROPN, TSH, K, BNP ####[facility] Vnxxjxdvbc5[address] [place], [place] [address]Dr. Airam Tripathi PROF 14(COMP METB)on 023 Albumin [Mass/Vol] 3.5 g/dL Normal 3.4-5.0 The [facility] Comment on above: Performed By: #### C MP ####[facility] Odvighsltf65[address] [place], [place] [address]Dr. Airam Tripathi Albumin/Globulin [Mass ratio] 1.1 {ratio} Normal The [facility] Comment on above: Performed By: #### C MP ####[facility] Mbdhoikjve7[address] [place], [place] [address]Dr. Airam Tripathi ALP [Catalytic activity/Vol] 113 U/L Normal 46-116 The [facility] Comment on above: Performed By: #### C MP ####[facility] Zdjrzcllat[address] [place] [address]Dr. Airam Tripathi ALT [Catalytic activity/Vol] 26 U/L Normal 14-59 The [facility] Comment on above: Performed By: #### C MP ####[facility] Vgtffymxig8732[address] [place], [place] [address]Dr. Airam Deuce Anion gap [Moles/Vol] 11.5 mmol/L Normal Th e [facility] Comment on above: Performed By: #### C MP ####[facility] Fpoamofses2480[address] [place], [place] [address]Dr. Airam Deuce AST [Catalytic activity/Vol] 24 U/L Normal 15-37 [facility] Comment on above: Performed By: #### C MP ####[facility] Cjhswmrxvw865[address] [place], [place] [address]Dr. Airam Deuce Bilirubin [Mass/Vol] 0.3 mg/dL Normal 0.2-1.0 The [facility] Comment on above: Performed By: #### C MP ####[facility] Nylvjytphm425[address] [place], [place] [address]Dr. Airam Deuce Calcium [Mass/Vol] 8.9 mg/dL Normal 8.5-10.1 The [facility] Comment on above: Performed By: #### C MP ####[facility] Jtklruhqqm428[address] [place], [place] [address]Dr. Airam Deuce Chloride [Moles/Vol] 103 mmol/L Normal 98-107 The [facility] Comment on above: Performed By: #### C MP ####[facility] Xbojtjxuwy117747 [address] [place], [place] [address]Dr. Airam Tripathi CO2 [Moles/Vol] 27.8 mmol/L Normal 21.0-32.0 The [facility] Comment on above: Performed By: #### C MP ####[facility] Tazkinmokd1432[address] [place], [place] [address]Dr. Airam Tripathi Creatinine [Mass/Vol] 1.28 mg/dL Critically high 0.55-1.02 [facility] Comment on above: Performed By: #### C MP ####[facility] Zzwzqrlqdx[address] [place] [address]Dr. eSlenaneil Deuce EGFR-AF QATARI 52 mL/min/1.73m2 Critically low >=60 [facility] Comment on above: Performed By: #### C MP ####[facility] Zvkfkjuawy65[address] [place] [address]Dr. Airam Tripathi EGFR-NON AF QATARI 43 mL/min/1.73m2 Critically low >=60 [facility] Comment on above: Performed By: #### C MP ####[facility] Wsxkvqpitb5625[address] [place], [place] [address]Dr. Airam Tripathi Globulin (S) [Mass/Vol] 3.2 g/dL Normal [facility] Comment on above: Performed By: #### C MP ####[facility] Aajdundamq656447 [address] [place], [place] [address]Dr. Airam Tripathi Glucose [Mass/Vol] 95 mg/dL Normal 74-106 [facility] Comment on above: Performed By: #### C MP ####[facility] Vvypgyfuqn8730[address] [place], [place] [address]Dr. Airam Tripathi Potassium [Moles/Vol] 6.3 mmol/L Critically high 3.5-5.1 [facility] Comment on above: Performed By: #### C MP ####[facility] Edzbbhyqod190[address] [place], [place] [address]Dr. Airam Tripathi Protein [Mass/Vol] 6.7 g/dL Normal 6.4-8.2 The [facility] Comment on above: Performed By: #### C MP ####[facility] Vjnrokxksz122[address] [place], [place] [address]Dr. Airam Tripathi Sodium [Moles/Vol] 135 mmol/L Critically low 136-145 Th [facility] Comment on above: Performed By: #### C MP ####[facility] Woayxqusey462[address] [place], [place] [address]Dr. Airam Tripathi Urea nitrogen [Mass/Vol] 42.0 mg/dL Critically high 7.0-18.0 [facility] Comment on above: Performed By: #### C MP ####[facility] Jxmaecryyt312747 [address] [place], [place] [address]Dr. Airam Tripathi Urea nitrogen/Creatinine [Mass ratio] 32.8 mg/mg Normal The [facility] Comment on above: Performed By: #### C MP ####[facility] Vprcslgwxo5832[address] [place], [place] [address]Dr. Airam Deuce TROPONIN, HIGH SENSITIVITYon 09-19-2022 HSTROP 7.1 pg/mL Normal 4.0-51.3 [facility] Comment on above: Result Comment: CUT- OFF POINTS HAVE BEEN ESTABLISHED BASED ON THE FOURTH UNIVERSAL DEFINITIONS OF MYOCARDIALINFARCTION. THE UPPER REFERENCE LIMIT (URL) OF TROPONIN, DEFINED THE 99TH PERCENTILE OFcTnI DISTRIBUTION IN A REFERENCE POPULATION, HAS BEEN CONFIRMED THE DECISION THRESHOLDFOR LA DIAGNOSIS. Performed By: #### H STROPN, TSH, K, BNP ####[facility] Eyxlxkrrgp489[address] [place], [place] [address]Dr. Airam Tripathi TSHon 09-19-2022 TSH 0.028 uIU/mL Critically low 0.358-3.74 0 [facility] Comment on above: Performed By: #### H STROPN, TSH, K, BNP ####[facility] Egxsqshlqf[address] [place] [address]Dr. Airam Tripathi UA RANDOMon 09-19-2022 Bilirubin Ql (U) Negative Normal NEGATIVE The [facility] Comment on above: Performed By: #### U A ####[facility] Xvqvpwfmpz549[address] [place], [place] [address]Dr. Airam Tripathi Clarity (U) CLEAR Normal CLEAR The [facility] Comment on above: Performed By: #### U A ####[facility] Bxbjwcwgox7927[address] [place], [place] [address]Dr. Airam Tripathi Color (U) LT. YELLOW Normal YELLOW The [facility] Comment on above: Performed By: #### U A ####[facility] Rwabjopklx887[address] [place], [place] [address]Dr. Airam Tripathi Glucose Ql (U) Negative Normal NEGATIVE The [facility] Comment on above: Performed By: #### U A ####[facility] Wbcaoxdakg5034[address] [place], [place] [address]Dr. Airam Tripathi Hemoglobin Ql (U) Negative Normal NEGATIVE The [facility] Comment on above: Performed By: #### U A ####[facility] Tkogqtpenk268747 [address] [place], [place] [address]Dr. Airam Tripathi Ketones Ql (U) Negative Normal NEGATIVE The [facility] Comment on above: Performed By: #### U A ####[facility] Qbcwxvjnif429947 [address] [place], [place] [address]Dr. Airam Tripathi LEUKOCYTES TRACE Abnormal NEGATIVE The [facility] Comment on above: Performed By: #### U A ####[facility] Pysgphydrg4629[address] [place], [place] [address]Dr. Airam Tripathi Nitrite Ql (U) Negative Normal NEGATIVE The [facility] Comment on above: Performed By: #### U A ####[facility] Qxgkxablqj201147 [address] [place], [place] [address]Dr. Airam Tripathi pH (U) 5.5 [pH] Normal 5-9 The [facility] Comment on above: Performed By: #### U A ####[facility] Wjllayxvnl9[address] [place], [place] [address]DrKianna Tripathi SPEC GRAVITY 1.010 Normal 1.005-<=1. 025 The [facility] Comment on above: Performed By: #### U A ####[facility] Donwwnough3034[address] [place], [place] [address]Dr. Airam Tripathi UA PROTEIN Negative Normal NEGATIVE/ TRACE The [facility] Comment on above: Performed By: #### U A ####[facility] Vmnirhsniw781347 [address] [place], [place] [address]Dr. Airam Tripathi Urobilinogen Qn (U) 0.2 {Ligia'U}/dL Normal 0.2 - 1. 0 The [facility] Comment on above: Performed By: #### U A ####[facility] Kxthlzftic4832[address] [place], [place] [address]Dr. Airam Tripathi URIC ACID SERUMon 09-19-2022 Urate [Mass/Vol] 6.9 mg/dL Critically high 2.6-6.0 The [facility] Comment on above: Performed By: #### U TRESSA ####[facility] [address]juftrz[address] [place] [address]Dr. Airam Tripathi URINE T PROTEIN CREAT RATIOo n 09-19-2022 UR TOTAL PROTEIN <6.0 Normal <=12.0 The [facility] Comment on above: Performed By: #### U RTPCR ####[facility] Zamutctkiv9669[address] [place], [place] [address]Dr. Airam Tripathi URINE CREAT 15.12 mg/dL Critically low 20.00-300. 00 The [facility] Comment on above: Performed By: #### U RTPCR ####[facility] Yzuipkmoud7738[address] [place], [place] [address]Dr. Airam Deuce VITAMIN D 25 OHon 09-19-2022 VIT D 25-OH 75.9 ng/mL Normal The [facility] Comment on above: Performed By: #### V ITAD ####[facility] Dusgyhzael139[address] [place], [place] [address]Dr. Airam Deuce VIT D RANGES SEE BELOW Normal The [facility] Comment on above: Result Comment: <20 ng/mL Vit D deficient 20 - <30 ng/mL Vit D insufficient 30 - 100 ng/mL Vit D sufficient >100 ng/mL Potential Toxicity Performed By: #### V ITAD ####[facility] Uhlxmbwcvl7828[address] [place], [place] [address]Dr. Airam Tripathi OSMOLALITYon 09-14-2022 Osmolality [Osmolality] 272 mosm/kg Critically low 275-295 The [facility] Comment on above: Performed By: #### O SMO ####[facility] Iesewpgobp3647[address] [place], [place] [address]Dr. Selenaneil Deuce CBC AUTO DIFFon 09-12-2022 BASO # 0.0 103/ul Normal 0.0-0.1 [facility] Comment on above: Performed By: #### C BC ####[facility] Hgajphdofu746[address] [place], [place] [address]Dr. Airam Tripathi Basophils/100 WBC (Bld) 0.5 % Normal 0.2-2.0 The [facility] Comment on above: Performed By: #### C BC ####[facility] Bqeuredfgs[address] [place], [place] [address]Dr. Airam Tripathi EO # 0.2 103/ul Normal 0.0-0.7 The [facility] Comment on above: Performed By: #### C BC ####[facility] Lolurzgxho924147 [address] [place], [place] [address]Dr. Airam Tripathi Eosinophils/100 WBC (Bld) 2.4 % Normal 0.9-7.0 The [facility] Comment on above: Performed By: #### C BC ####[facility] Nehsvpspsc987[address] [place], [place] [address]Dr. Airam Tripathi Erythrocyte distribution width (RBC) [Ratio] 14.8 % Normal 11.0-15.0 The [facility] Comment on above: Performed By: #### C BC ####[facility] Ehhkyaxide8710[address] [place], [place] [address]Dr. Airam Tripathi Hematocrit (Bld) [Volume fraction] 32.6 % Critically low 36.0-48.0 The [facility] Comment on above: Performed By: #### C BC ####[facility] Supwwkquuy919[address] [place], [place] [address]Dr. Airam Tripathi Hemoglobin (Bld) [Mass/Vol] 10.1 g/dL Critically low 12.0-16.0 [facility] Comment on above: Performed By: #### C BC ####[facility] Zvhqmnkdwo801[address] [place], [place] [address]Dr. Airam Tripathi IG # 0.05 10e3/ul Critically high 0.00-0.03 The [facility] Comment on above: Performed By: #### C BC ####[facility] Zfbwluqoow4520[address] [place], [place] [address]Dr. Airam Tripathi IG % 0.7 % Critically high 0.0-0.5 The [facility] Comment on above: Performed By: #### C BC ####[facility] Imszmnpskr[address] [place] [address]Dr. Airam Deuce LYMPH # 1.9 103/ul Normal 1.2-3.8 The [facility] Comment on above: Performed By: #### C BC ####[facility] Uxxjrlejtj[address] [place] [address]Dr. Selenaneil Tripathi Lymphocytes/100 WBC (Bld) 24.7 % Normal 20.5-60.0 The [facility] Comment on above: Performed By: #### C BC ####[facility] Spflxdjixc[address] [place] [address]Dr. Selenaneil Tripathi MANUAL DIFF REQ NO Normal [facility] Comment on above: Performed By: #### C BC ####[facility] Rsfwmbhpwt7[address] [place] [address]Dr. Airam Deuce MCH (RBC) [Entitic mass] 28.0 pg Normal 26.7-34.0 The [facility] Comment on above: Performed By: #### C BC ####[facility] Opkwecuqyg467347 [address] [place], [place] [address]Dr. Airam Deuce MCHC (RBC) [Mass/Vol] 31.0 g/dL Normal 29.9-35.2 The [facility] Comment on above: Performed By: #### C BC ####[facility] Ljvleishyf27[address] [place], [place] [address]Dr. Selenaneil Tripathi MCV (RBC) [Entitic vol] 90.3 fL Normal 81.0-99.0 The [facility] Comment on above: Performed By: #### C BC ####[facility] Wrbudmozfo534[address] [place], [place] [address]Dr. Airam Tripathi MONO # 0.5 103/ul Normal 0.3-0.8 The [facility] Comment on above: Performed By: #### C BC ####[facility] Nfmgrngqup2544[address] [place], [place] [address]Dr. Selenaneil Tripathi Monocytes/100 WBC (Bld) 6.0 % Normal 1.7-12.0 The [facility] Comment on above: Performed By: #### C BC ####[facility] Bqjkjshkig6[address] [place], [place] [address]Dr. Airam Tripathi NEUT # 5.0 103/ul Normal 1.4-6.5 The [facility] Comment on above: Performed By: #### C BC ####[facility] Qjzrhymyik[address] [place] [address]Dr. Airam Tripathi Neutrophils/100 WBC (Bld) 65.7 % Normal 43.0-75.0 The [facility] Comment on above: Performed By: #### C BC ####[facility] Lllihaclgz13[address] [place] [address]Dr. Airam Tripathi Platelet mean volume (Bld) [Entitic vol] 9.5 fL Normal 9.5-13.5 The [facility] Comment on above: Performed By: #### C BC ####[facility] Yarnqsdwhk[address] [place] [address]Dr. Airam Deuce PLT 307 103/ul Normal 150-450 The [facility] Comment on above: Performed By: #### C BC ####[facility] Drwprluacb5[address] [place] [address]Dr. Airam Deuce RBC 3.61 106/ul Critically low 4.20-5.40 The [facility] Comment on above: Performed By: #### C BC ####[facility] Bwwcjhnzmj101[address] [place], [place] [address]Dr. Airam Tripathi WBC 7.5 103/ul Normal 4.0-11.0 The [facility] Comment on above: Performed By: #### C BC ####[facility] Lvdznuxmuv05[address] [place] [address]DrKianna Tripathi PROF 14(COMP METB)on 023 Albumin [Mass/Vol] 3.5 g/dL Normal 3.4-5.0 The [facility] Comment on above: Performed By: #### C MP ####[facility] Awnjegannr082[address] [place], [place] [address]Dr. Selenaneil Deuce Albumin/Globulin [Mass ratio] 1.1 {ratio} Normal The [facility] Comment on above: Performed By: #### C MP ####[facility] Aizydpouox28[address] [place] [address]Dr. Airam Tripathi ALP [Catalytic activity/Vol] 126 U/L Critically high 46-116 The [facility] Comment on above: Performed By: #### C MP ####[facility] Qvlfifqkbe5[address] [place] [address]Dr. Airam Tripathi ALT [Catalytic activity/Vol] 18 U/L Normal 14-59 The [facility] Comment on above: Performed By: #### C MP ####[facility] Bzdgpafgnv5[address] [place] [address]Dr. Airam Deuce Anion gap [Moles/Vol] 11.1 mmol/L Normal Th e [facility] Comment on above: Performed By: #### C MP ####[facility] Egjigcegaw3108[address] [place], [place] [address]Dr. Airam Tripathi AST [Catalytic activity/Vol] 26 U/L Normal 15-37 The [facility] Comment on above: Performed By: #### C MP ####[facility] Wiyxyfizuf6198[address] [place], [place] [address]Dr. Airam Deuce Bilirubin [Mass/Vol] 0.3 mg/dL Normal 0.2-1.0 The [facility] Comment on above: Performed By: #### C MP ####[facility] Eojbxujbfs7447[address] [place], [place] [address]Dr. Airam Deuce Calcium [Mass/Vol] 8.5 mg/dL Normal 8.5-10.1 The [facility] Comment on above: Performed By: #### C MP ####[facility] Nbmmmyfwhy1444[address] [place], [place] [address]Dr. Airam Deuce Chloride [Moles/Vol] 98 mmol/L Normal 98-107 The [facility] Comment on above: Performed By: #### C MP ####[facility] Rrgagkddbn024[address] [place], [place] [address]Dr. Airam Deuce CO2 [Moles/Vol] 23.9 mmol/L Normal 21.0-32.0 The [facility] Comment on above: Performed By: #### C MP ####[facility] Qxkpiobdke697[address] [place], [place] [address]Dr. Airam Tripathi Creatinine [Mass/Vol] 1.40 mg/dL Critically high 0.55-1.02 [facility] Comment on above: Performed By: #### C MP ####[facility] Tezyvnalse[address] [place] [address]Dr. Selenaneil Deuce EGFR-AF QATARI 46 mL/min/1.73m2 Critically low >=60 [facility] Comment on above: Performed By: #### C MP ####[facility] Lcxmelgjwr6148 [place] [address]Dr. Airam Tripathi EGFR-NON AF QATARI 38 mL/min/1.73m2 Critically low >=60 [facility] Comment on above: Performed By: #### C MP ####[facility] Neqfqzqzwn3299[address] [place], [place] [address]Dr. Airam Tripathi Globulin (S) [Mass/Vol] 3.3 g/dL Normal [facility] Comment on above: Performed By: #### C MP ####[facility] Squbnuijhy9699[address] [place], [place] [address]Dr. Airam Tripathi Glucose [Mass/Vol] 72 mg/dL Critically low 74-106 Th [facility] Comment on above: Performed By: #### C MP ####[facility] Wnvwrqliuh778[address] [place], [place] [address]Dr. Airam Tripathi Potassium [Moles/Vol] 5.0 mmol/L Normal 3.5-5.1 [facility] Comment on above: Performed By: #### C MP ####[facility] Ullvmsigst8834[address] [place], [place] [address]Dr. Airam Tripathi Protein [Mass/Vol] 6.8 g/dL Normal 6.4-8.2 The [facility] Comment on above: Performed By: #### C MP ####[facility] Nkpwcczehq356[address] [place], [place] [address]Dr. Airam Tripathi Sodium [Moles/Vol] 128 mmol/L Critically low 136-145 Th [facility] Comment on above: Performed By: #### C MP ####[facility] Punaeawcby04[address] [place], [place] [address]Dr. Airam Tripathi Urea nitrogen [Mass/Vol] 27.0 mg/dL Critically high 7.0-18.0 The [facility] Comment on above: Performed By: #### C MP ####[facility] Edjxvtfcmg[address] [place], [place] [address]Dr. Airam Tripathi Urea nitrogen/Creatinine [Mass ratio] 19.3 mg/mg Normal The [facility] Comment on above: Performed By: #### C MP ####[facility] Xcdsjvbfqr6734[address] [place], [place] [address]Dr. Airam Tripathi OSMOLALITYon 09-10-2022 Osmolality [Osmolality] 275 mosm/kg Normal 275-295 The [facility] Comment on above: Performed By: #### O SMO ####[facility] Yfqymyynjb587[address] [place], [place] [address]Dr. Airam Tripathi CBC AUTO DIFFon 09-08-2022 BASO # 0.0 103/ul Normal 0.0-0.1 The [facility] Comment on above: Performed By: #### C BC ####[facility] Spqlrzheqe80224[address] [place], [place] [address]Dr. Airam Deuce Basophils/100 WBC (Bld) 0.5 % Normal 0.2-2.0 The [facility] Comment on above: Performed By: #### C BC ####[facility] Vpqcexqvns299[address] [place], [place] [address]Dr. Airam Tripathi EO # 0.1 103/ul Normal 0.0-0.7 The [facility] Comment on above: Performed By: #### C BC ####[facility] Muvqszligv022[address] [place], [place] [address]Dr. Airam Deuce Eosinophils/100 WBC (Bld) 1.7 % Normal 0.9-7.0 The [facility] Comment on above: Performed By: #### C BC ####[facility] Qaaptbzqhl022[address] [place], [place] [address]Dr. Airam Tripathi Erythrocyte distribution width (RBC) [Ratio] 14.7 % Normal 11.0-15.0 The [facility] Comment on above: Performed By: #### C BC ####[facility] [address]qggeitp[address] [place] [address]Dr. Airam Tripathi Hematocrit (Bld) [Volume fraction] 30.3 % Critically low 36.0-48.0 The [facility] Comment on above: Performed By: #### C BC ####[facility] Avzbkikdzo360[address] [place] [address]Dr. Airam Deuce Hemoglobin (Bld) [Mass/Vol] 9.3 g/dL Critically low 12.0-16.0 The [facility] Comment on above: Performed By: #### C BC ####[facility] Hlmdadvykb[address] [place], [place] [address]Dr. Airam Tripathi IG # 0.03 10e3/ul Normal 0.00-0.03 [facility] Comment on above: Performed By: #### C BC ####[facility] Hezeyyqutw2[address] [place], [place] [address]Dr. Airam Tripathi IG % 0.5 % Normal 0.0-0.5 [facility] Comment on above: Performed By: #### C BC ####[facility] Xcwapwogen[address] [place], [place] [address]DrKianna Tripathi LYMPH # 0.9 103/ul Critically low 1.2-3.8 [facility] Comment on above: Performed By: #### C BC ####[facility] Mqifhaeetc[address] [place], [place] [address]DrKianna Tripathi Lymphocytes/100 WBC (Bld) 13.6 % Critically low 20.5-60.0 [facility] Comment on above: Performed By: #### C BC ####[facility] Rckfduvqzm6[address] [place], [place] [address]DrKianna Selenaneil Tripathi MANUAL DIFF REQ NO Normal [facility] Comment on above: Performed By: #### C BC ####[facility] Dexoaytxhf5713[address] [place], [place] [address]DrKianna Tripathi MCH (RBC) [Entitic mass] 27.4 pg Normal 26.7-34.0 [facility] Comment on above: Performed By: #### C BC ####[facility] Tsddnznnwi3820[address] [place], [place] [address]Dr. Airam Tripathi MCHC (RBC) [Mass/Vol] 30.7 g/dL Normal 29.9-35.2 [facility] Comment on above: Performed By: #### C BC ####[facility] Kcuaeboexg12[address] [place] [id number]. Airam Tripathi MCV (RBC) [Entitic vol] 89.4 fL Normal 81.0-99.0 [facility] Comment on above: Performed By: #### C BC ####[facility] Virkgoqnvn7578 [place] [address]Dr. Airam Deuce MONO # 0.5 103/ul Normal 0.3-0.8 [facility] Comment on above: Performed By: #### C BC ####[facility] Ejlnbmedot7374 [place] [address]Dr. Airam Tripathi Monocytes/100 WBC (Bld) 8.0 % Normal 1.7-12.0 [facility] Comment on above: Performed By: #### C BC ####[facility] Rsqbdmjqrf3837[address] [place], [place] [address]Dr. Airam Tripathi NEUT # 5.0 103/ul Normal 1.4-6.5 [facility] Comment on above: Performed By: #### C BC ####[facility] Dxoyqnzdxy1832 [place] [address]Dr. Airam Tripathi Neutrophils/100 WBC (Bld) 75.7 % Critically high 43.0-75.0 [facility] Comment on above: Performed By: #### C BC ####[facility] Vgeienbdbv8243 [place] [address]Dr. Airam Tripathi Platelet mean volume (Bld) [Entitic vol] 10.4 fL Normal 9.5-13.5 [facility] Comment on above: Performed By: #### C BC ####[facility] Ywrlupwofd4469 [place] [address]Dr. Airam Tripathi PLT 315 103/ul Normal 150-450 [facility] Comment on above: Performed By: #### C BC ####[facility] Bdbqvrarui1573 [place] [address]Dr. Selenaneil Deuce RBC 3.39 106/ul Critically low 4.20-5.40 [facility] Comment on above: Performed By: #### C BC ####[facility] Vbwxublqkj1219 [place] [address]Dr. Airam Tripathi WBC 6.5 103/ul Normal 4.0-11.0 [facility] Comment on above: Performed By: #### C BC ####[facility] Nshgdqhtpu8245 [place] [address]DrKianna Tripathi PROF 14(COMP METB)on 023 Albumin [Mass/Vol] 3.1 g/dL Critically low 3.4-5.0 [facility] Comment on above: Performed By: #### C MP ####[facility] Vhaeoddcar1160 [place] [address]Dr. Airam Tripathi Albumin/Globulin [Mass ratio] 1.0 {ratio} Normal [facility] Comment on above: Performed By: #### C MP ####[facility] Xvbpdiajqu1847 [place] [address]Dr. Airam Tripathi ALP [Catalytic activity/Vol] 126 U/L Critically high 46-116 [facility] Comment on above: Performed By: #### C MP ####[facility] Ayxiyyhzxz1886 [place] [address]Dr. Airam Tripathi ALT [Catalytic activity/Vol] 18 U/L Normal 14-59 [facility] Comment on above: Performed By: #### C MP ####[facility] Qrckxbxivr4780 [place] [address]Dr. Airam Tripathi Anion gap [Moles/Vol] 11.4 mmol/L Normal [facility] Comment on above: Performed By: #### C MP ####[facility] Zaiuupflug7082 [place] [address]DrKianna Tripathi AST [Catalytic activity/Vol] 25 U/L Normal 15-37 [facility] Comment on above: Performed By: #### C MP ####[facility] Lmhmdzmdpb5083 [place] [address]Dr. Airam Tripathi Bilirubin [Mass/Vol] 0.3 mg/dL Normal 0.2-1.0 [facility] Comment on above: Performed By: #### C MP ####[facility] Qoezrvyvew643[address] [place], [place] [address]Dr. Airam Tripathi Calcium [Mass/Vol] 8.6 mg/dL Normal 8.5-10.1 [facility] Comment on above: Performed By: #### C MP ####[facility] Iruynutqdy5297[address] [place], [place] [address]Dr. Selenaneil Deuce Chloride [Moles/Vol] 97 mmol/L Critically low 98-107 [facility] Comment on above: Performed By: #### C MP ####[facility] Oadoxmeqit4309[address] [place], [place] [address]Dr. Airam Tripathi CO2 [Moles/Vol] 26.1 mmol/L Normal 21.0-32.0 [facility] Comment on above: Performed By: #### C MP ####[facility] Hudshdcoej2650[address] [place], [place] [address]Dr. Airam Deuce Creatinine [Mass/Vol] 1.07 mg/dL Critically high 0.55-1.02 [facility] Comment on above: Performed By: #### C MP ####[facility] Pdlkysskdr9499[address] [place], [place] [address]Dr. Selenaneil Deuce EGFR-AF QATARI >60 Normal >=60 [facility] Comment on above: Performed By: #### C MP ####[facility] Rwearlufdx068247 [address] [place], [place] [address]Dr. Airam Tripathi EGFR-NON AF QATARI 52 mL/min/1.73m2 Critically low >=60 [facility] Comment on above: Performed By: #### C MP ####[facility] Xcdkjcksft204147 [address] [place], [place] [address]Dr. Airam Tripathi Globulin (S) [Mass/Vol] 3.2 g/dL Normal [facility] Comment on above: Performed By: #### C MP ####[facility] Fdtpksgeru444247 [address] [place], [place] [address]Dr. Airam Tripathi Glucose [Mass/Vol] 83 mg/dL Normal 74-106 [facility] Comment on above: Performed By: #### C MP ####[facility] Pngscnfzoe2037 [place] [address]Dr. Airam Deuce Potassium [Moles/Vol] 5.5 mmol/L Critically high 3.5-5.1 [facility] Comment on above: Performed By: #### C MP ####[facility] Qlcvmhajyr8528[address] [place], [place] [address]Dr. Airam Deuce Protein [Mass/Vol] 6.3 g/dL Critically low 6.4-8.2 Th [facility] Comment on above: Performed By: #### C MP ####[facility] Lntyeskgej4697[address] [place], [place] [address]Dr. Selenaneil Tripathi Sodium [Moles/Vol] 129 mmol/L Critically low 136-145 Th [facility] Comment on above: Performed By: #### C MP ####[facility] Cbhiafyqmb758[address] [place], [place] [address]DrKianna Selenaneil Tripathi Urea nitrogen [Mass/Vol] 37.0 mg/dL Critically high 7.0-18.0 [facility] Comment on above: Performed By: #### C MP ####[facility] Vhnbtskfpd244347 [address] [place], [place] [address]Dr. Airam Deuce Urea nitrogen/Creatinine [Mass ratio] 34.6 mg/mg Normal [facility] Comment on above: Performed By: #### C MP ####[facility] Jhwgqufkvb547247 [address] [place], [place] [address]Dr. Airam Deuce OSMOLALITYon 09-02-2022 Osmolality [Osmolality] 279 mosm/kg Normal 275-295 [facility] Comment on above: Performed By: #### O SMO ####[facility] Qqgqohlpjx33[address] [place], [place] [address]DrKianna Airam Deuce CBC AUTO DIFFon 08-31-2022 BASO # 0.0 103/ul Normal 0.0-0.1 [facility] Comment on above: Performed By: #### C BC ####[facility] Jxiuencdqg9[address] [place], [place] [address]Dr. Airam Tripathi Basophils/100 WBC (Bld) 0.4 % Normal 0.2-2.0 [facility] Comment on above: Performed By: #### C BC ####[facility] Iaeiksypfu4179 [place] [address]Dr. Airam Tripathi EO # 0.2 103/ul Normal 0.0-0.7 [facility] Comment on above: Performed By: #### C BC ####[facility] Fawogvvkrv1032[address] [place], [place] [address]Dr. Airam Tripathi Eosinophils/100 WBC (Bld) 3.2 % Normal 0.9-7.0 [facility] Comment on above: Performed By: #### C BC ####[facility] Auplkvmmtz300[address] [place], [place] [address]Dr. Airam Tripathi Erythrocyte distribution width (RBC) [Ratio] 14.4 % Normal 11.0-15.0 [facility] Comment on above: Performed By: #### C BC ####[facility] Ioxejnavrj897[address] [place], [place] [address]Dr. Airam Tripathi Hematocrit (Bld) [Volume fraction] 27.8 % Critically low 36.0-48.0 [facility] Comment on above: Performed By: #### C BC ####[facility] Hwrnjxdlne5355[address] [place], [place] [address]Dr. Airam Tripathi Hemoglobin (Bld) [Mass/Vol] 8.7 g/dL Critically low 12.0-16.0 [facility] Comment on above: Performed By: #### C BC ####[facility] Mmdglrlomg649[address] [place], [place] [address]Dr. Airam Tripathi IG # 0.05 10e3/ul Critically high 0.00-0.03 [facility] Comment on above: Performed By: #### C BC ####[facility] Hutibkohxv2257[address] [place], [place] [address]Dr. Airam Tripathi IG % 0.7 % Critically high 0.0-0.5 [facility] Comment on above: Performed By: #### C BC ####[facility] Irqazdokbu8[address] [place] [phone]. Airam Deuce LYMPH # 1.7 103/ul Normal 1.2-3.8 [facility] Comment on above: Performed By: #### C BC ####[facility] Qkjstppcfm5247 [place] [phone]. Airam Deuce Lymphocytes/100 WBC (Bld) 23.6 % Normal 20.5-60.0 [facility] Comment on above: Performed By: #### C BC ####[facility] Lathllivpj6686 [place] [address]Dr. Airam Deuce MANUAL DIFF REQ NO Normal [facility] Comment on above: Performed By: #### C BC ####[facility] Jwbmdouhqo0516 [place] [address]Dr. Airam Deuce MCH (RBC) [Entitic mass] 27.8 pg Normal 26.7-34.0 [facility] Comment on above: Performed By: #### C BC ####[facility] Dfjxtpyazt3757 [place] [address]Dr. Airam Tripathi MCHC (RBC) [Mass/Vol] 31.3 g/dL Normal 29.9-35.2 [facility] Comment on above: Performed By: #### C BC ####[facility] Ucurhifqum6462 [place] [address]Dr. Airam Deuce MCV (RBC) [Entitic vol] 88.8 fL Normal 81.0-99.0 [facility] Comment on above: Performed By: #### C BC ####[facility] Xblwpfohvy6880 [place] [address]Dr. Airam Deuce MONO # 0.5 103/ul Normal 0.3-0.8 [facility] Comment on above: Performed By: #### C BC ####[facility] Ordzfprtwi1430 [place] [address]Dr. Airam Deuce Monocytes/100 WBC (Bld) 6.9 % Normal 1.7-12.0 [facility] Comment on above: Performed By: #### C BC ####[facility] Dlhnbkhpgb2123 [place] [phone]. Airam Tripathi NEUT # 4.7 103/ul Normal 1.4-6.5 [facility] Comment on above: Performed By: #### C BC ####[facility] Iomuwiyhui5982 [place] [address]Dr. Airam Tripathi Neutrophils/100 WBC (Bld) 65.2 % Normal 43.0-75.0 [facility] Comment on above: Performed By: #### C BC ####[facility] Tlejbgdahc9126 [place] [address]Dr. Airam Tripathi Platelet mean volume (Bld) [Entitic vol] 9.8 fL Normal 9.5-13.5 [facility] Comment on above: Performed By: #### C BC ####[facility] Dqdvayqqst7641 [place] [address]Dr. Airam Deuce PLT 225 103/ul Normal 150-450 [facility] Comment on above: Performed By: #### C BC ####[facility] Icewebduuq3248 [place] [address]Dr. Airam Deuce RBC 3.13 106/ul Critically low 4.20-5.40 [facility] Comment on above: Performed By: #### C BC ####[facility] Luszmjpjlb3833[address] [place], [place] [address]Dr. Airam Tripathi WBC 7.3 103/ul Normal 4.0-11.0 [facility] Comment on above: Performed By: #### C BC ####[facility] Ysvqpgnlad6660 [place] [address]Dr. Airam Tripathi PROF 14(COMP METB)on 023 Albumin [Mass/Vol] 3.0 g/dL Critically low 3.4-5.0 [facility] Comment on above: Performed By: #### C MP ####[facility] Jlsxcsxptm3999 [place] [address]Dr. Airam Deuce Albumin/Globulin [Mass ratio] 1.1 {ratio} Normal [facility] Comment on above: Performed By: #### C MP ####[facility] Tsmrjhdqvf7787 [place] [address]Dr. Airam Tripathi ALP [Catalytic activity/Vol] 132 U/L Critically high 46-116 [facility] Comment on above: Performed By: #### C MP ####[facility] Kxbuusvhme9062 [place] [address]Dr. Airam Tripathi ALT [Catalytic activity/Vol] 20 U/L Normal 14-59 [facility] Comment on above: Performed By: #### C MP ####[facility] Nnrjjklqqf434[address] [place], [place] [address]Dr. Airam Tripathi Anion gap [Moles/Vol] 9.5 mmol/L Normal [facility] Comment on above: Performed By: #### C MP ####[facility] Fdpmlxviyf248[address] [place], [place] [address]Dr. Airam Tripathi AST [Catalytic activity/Vol] 25 U/L Normal 15-37 [facility] Comment on above: Performed By: #### C MP ####[facility] Cuvwaytnvi0728[address] [place], [place] [address]Dr. Airam Tripathi Bilirubin [Mass/Vol] 0.2 mg/dL Normal 0.2-1.0 [facility] Comment on above: Performed By: #### C MP ####[facility] Wahttikptv924[address] [place], [place] [address]Dr. Airam Tripathi Calcium [Mass/Vol] 7.9 mg/dL Critically low 8.5-10.1 Th [facility] Comment on above: Performed By: #### C MP ####[facility] Gzstosrrdp30264[address] [place], [place] [address]Dr. Airam Deuce Chloride [Moles/Vol] 97 mmol/L Critically low 98-107 [facility] Comment on above: Performed By: #### C MP ####[facility] Xlyfkipwuf928[address] [place], [place] [address]Dr. Airam Tripathi CO2 [Moles/Vol] 27.3 mmol/L Normal 21.0-32.0 [facility] Comment on above: Performed By: #### C MP ####[facility] Utmqhhqnqq947[address] [place], [place] [address]Dr. Airam Tripathi Creatinine [Mass/Vol] 1.58 mg/dL Critically high 0.55-1.02 [facility] Comment on above: Performed By: #### C MP ####[facility] Etvfznnqtg8865 [place] [address]Dr. Airam Tripathi EGFR-AF QATARI 40 mL/min/1.73m2 Critically low >=60 [facility] Comment on above: Performed By: #### C MP ####[facility] Mnnwsdjpmg3502 [place] [address]Dr. Airam Tripathi EGFR-NON AF QATARI 33 mL/min/1.73m2 Critically low >=60 [facility] Comment on above: Performed By: #### C MP ####[facility] Fikqngohyk0548 [place] [address]Dr. Airam Tripathi Globulin (S) [Mass/Vol] 2.8 g/dL Normal [facility] Comment on above: Performed By: #### C MP ####[facility] Tpdqfjhxmz9941 [place] [address]Dr. Airam Tripathi Glucose [Mass/Vol] 111 mg/dL Critically high 74-106 T [facility] Comment on above: Performed By: #### C MP ####[facility] Fbvxcotbjb2453 [place] [address]Dr. Airam Tripathi Potassium [Moles/Vol] 4.8 mmol/L Normal 3.5-5.1 [facility] Comment on above: Performed By: #### C MP ####[facility] Ohbbtpvqxa4188 [place] [address]Dr. Airam Tripathi Protein [Mass/Vol] 5.8 g/dL Critically low 6.4-8.2 Th [facility] Comment on above: Performed By: #### C MP ####[facility] Expcbarlpa2198 [place] [address]Dr. Airam Tripathi Sodium [Moles/Vol] 129 mmol/L Critically low 136-145 Th [facility] Comment on above: Performed By: #### C MP ####[facility] Lhgvkjjqov1467 [place] [address]Dr. Airam Tripathi Urea nitrogen [Mass/Vol] 44.0 mg/dL Critically high 7.0-18.0 [facility] Comment on above: Performed By: #### C MP ####[facility] Osyjodfcye26[address] [place], [place] [address]Dr. Airam Tripathi Urea nitrogen/Creatinine [Mass ratio] 27.8 mg/mg Normal [facility] Comment on above: Performed By: #### C MP ####[facility] Hfbudkqxvs9317[address] [place], [place] [address]Dr. Airam Tripathi OSMOLALITYon 08-28-2022 Osmolality [Osmolality] 288 mosm/kg Normal 275-295 [facility] Comment on above: Performed By: #### O SMO ####[facility] Opemkjpnko4545[address] [place], [place] [address]Dr. Airam Tripathi CBC AUTO DIFFon 08-25-2022 BASO # 0.0 103/ul Normal 0.0-0.1 [facility] Comment on above: Performed By: #### C BC ####[facility] Lcrjccomit516[address] [place], [place] [address]Dr. Airam Tripathi Basophils/100 WBC (Bld) 0.5 % Normal 0.2-2.0 [facility] Comment on above: Performed By: #### C BC ####[facility] Xrsorycdkd9650[address] [place], [place] [address]Dr. Airam Tripathi EO # 0.4 103/ul Normal 0.0-0.7 [facility] Comment on above: Performed By: #### C BC ####[facility] Kvwfnwolps27[address] [place], [place] [address]Dr. Airam Tripathi Eosinophils/100 WBC (Bld) 4.8 % Normal 0.9-7.0 [facility] Comment on above: Performed By: #### C BC ####[facility] Cakdvsdicm1207[address] [place], [place] [address]Dr. Airam Tripathi Erythrocyte distribution width (RBC) [Ratio] 14.2 % Normal 11.0-15.0 [facility] Comment on above: Performed By: #### C BC ####[facility] Bsbqgknhuv5756 [place] [address]Dr. Selenaneil Tripathi Hematocrit (Bld) [Volume fraction] 31.1 % Critically low 36.0-48.0 [facility] Comment on above: Performed By: #### C BC ####[facility] Mrkulbjqga0209 [place] [address]Dr. Airam Tripathi Hemoglobin (Bld) [Mass/Vol] 9.7 g/dL Critically low 12.0-16.0 [facility] Comment on above: Performed By: #### C BC ####[facility] Spqaryvxps3635 [place] [address]Dr. Airam Tripathi IG # 0.05 10e3/ul Critically high 0.00-0.03 [facility] Comment on above: Performed By: #### C BC ####[facility] Wijsynqeef489[address] [place], [place] [address]Dr. Airam Tripathi IG % 0.6 % Critically high 0.0-0.5 [facility] Comment on above: Performed By: #### C BC ####[facility] Eijzrapcji4257[address] [place], [place] [address]Dr. Airam Tripathi LYMPH # 1.7 103/ul Normal 1.2-3.8 [facility] Comment on above: Performed By: #### C BC ####[facility] Eitbfnfvws1697 [place] [address]Dr. Airam Tripathi Lymphocytes/100 WBC (Bld) 19.6 % Critically low 20.5-60.0 [facility] Comment on above: Performed By: #### C BC ####[facility] Shknuqzsyt8564 [place] [address]Dr. Airam Tripathi MANUAL DIFF REQ NO Normal [facility] Comment on above: Performed By: #### C BC ####[facility] Cmziosrvhc427[address] [place], [place] [address]Dr. Airam Tripathi MCH (RBC) [Entitic mass] 28.2 pg Normal 26.7-34.0 [facility] Comment on above: Performed By: #### C BC ####[facility] Xaakdsdxka1977 [place] [phone]. Airam Tripathi MCHC (RBC) [Mass/Vol] 31.2 g/dL Normal 29.9-35.2 [facility] Comment on above: Performed By: #### C BC ####[facility] Pbsicxclxo2155 [place] [phone]. Airam Tripathi MCV (RBC) [Entitic vol] 90.4 fL Normal 81.0-99.0 [facility] Comment on above: Performed By: #### C BC ####[facility] Fjqybdaibx1999 [place] [phone]. Airam Tripathi MONO # 0.6 103/ul Normal 0.3-0.8 [facility] Comment on above: Performed By: #### C BC ####[facility] Adbzxkrtpj269[address] [place], [place] [address]Dr. Airam Tripathi Monocytes/100 WBC (Bld) 7.4 % Normal 1.7-12.0 [facility] Comment on above: Performed By: #### C BC ####[facility] Gobcgisgpj5[address] [place], [place] [address]Dr. Selenaneil Tripathi NEUT # 5.8 103/ul Normal 1.4-6.5 [facility] Comment on above: Performed By: #### C BC ####[facility] Ogweddthtq[address] [place], [place] [address]Dr. Airam Tripathi Neutrophils/100 WBC (Bld) 67.1 % Normal 43.0-75.0 [facility] Comment on above: Performed By: #### C BC ####[facility] Pamqbehlqu8[address] [place], [place] [address]Dr. Airam Tripathi Platelet mean volume (Bld) [Entitic vol] 9.9 fL Normal 9.5-13.5 [facility] Comment on above: Performed By: #### C BC ####[facility] Icmntfanqi4213[address] [place], [place] [address]Dr. Airam Tripathi PLT 320 103/ul Normal 150-450 [facility] Comment on above: Performed By: #### C BC ####[facility] Cewxrpzpeu5191 [place] [phone]. Selenaneil Deuce RBC 3.44 106/ul Critically low 4.20-5.40 [facility] Comment on above: Performed By: #### C BC ####[facility] Oktuaprlup9837 [place] [address]Dr. Airam Tripathi WBC 8.6 103/ul Normal 4.0-11.0 [facility] Comment on above: Performed By: #### C BC ####[facility] Mkeoptjadt7181 [place] [address]Dr. Airam Tripathi PROF 14(COMP METB)on 023 Albumin [Mass/Vol] 3.4 g/dL Normal 3.4-5.0 [facility] Comment on above: Performed By: #### C MP ####[facility] Qqblavkbag528[address] [place], [place] [address]Dr. Airam Tripathi Albumin/Globulin [Mass ratio] 1.1 {ratio} Normal [facility] Comment on above: Performed By: #### C MP ####[facility] Quwwxgiaar0958 [place] [address]Dr. Airam Tripathi ALP [Catalytic activity/Vol] 170 U/L Critically high 46-116 [facility] Comment on above: Performed By: #### C MP ####[facility] Zjhbryrrjo7891 [place] [address]Dr. Airam Tripathi ALT [Catalytic activity/Vol] 22 U/L Normal 14-59 [facility] Comment on above: Performed By: #### C MP ####[facility] Bchcqwzsil4824 [place] [address]Dr. Airam Tripathi Anion gap [Moles/Vol] 14.4 mmol/L Normal [facility] Comment on above: Performed By: #### C MP ####[facility] Knvypikoes[address] [place], [place] [address]Dr. Airam Tripathi AST [Catalytic activity/Vol] 25 U/L Normal 15-37 [facility] Comment on above: Performed By: #### C MP ####[facility] Dbjqjdkagq7834 [place] [phone]. Airam Tripathi Bilirubin [Mass/Vol] 0.3 mg/dL Normal 0.2-1.0 [facility] Comment on above: Performed By: #### C MP ####[facility] Jpwzbfdvxp4724 [place] [phone]. Airam Tripathi Calcium [Mass/Vol] 8.2 mg/dL Critically low 8.5-10.1 Th [facility] Comment on above: Performed By: #### C MP ####[facility] Xkautuhvsy[address] [place] [phone]. Airam Tripathi Chloride [Moles/Vol] 98 mmol/L Normal 98-107 [facility] Comment on above: Performed By: #### C MP ####[facility] Zuoobsotqq[address] [place], [place] [address]Dr. Airam Tripathi CO2 [Moles/Vol] 27.8 mmol/L Normal 21.0-32.0 The [facility] Comment on above: Performed By: #### C MP ####[facility] Mcocxlbvtm[address] [place], [place] [address]Dr. Airam Tripathi Creatinine [Mass/Vol] 1.82 mg/dL Critically high 0.55-1.02 [facility] Comment on above: Performed By: #### C MP ####[facility] Kcuwzvqzij74[address] [place] [phone]. Airam Tripathi EGFR-AF QATARI 34 mL/min/1.73m2 Critically low >=60 The [facility] Comment on above: Performed By: #### C MP ####[facility] Hxmfqcarxk7104 [place] [phone]. Airam Tripathi EGFR-NON AF QATARI 28 mL/min/1.73m2 Critically low >=60 The [facility] Comment on above: Performed By: #### C MP ####[facility] Rnjznafevm1284 [place] [phone]. Airam Tripathi Globulin (S) [Mass/Vol] 3.2 g/dL Normal The [facility] Comment on above: Performed By: #### C MP ####[facility] Rgiqmztphl3165 [place] [phone]. Airam Tripathi Glucose [Mass/Vol] 78 mg/dL Normal 74-106 [facility] Comment on above: Performed By: #### C MP ####[facility] Cajldilwcf34[address] [place] [address]Dr. Airam Tripathi Potassium [Moles/Vol] 5.2 mmol/L Critically high 3.5-5.1 [facility] Comment on above: Performed By: #### C MP ####[facility] Isbczqrkkp023[address] [place], [place] [address]Dr. Airam Tripathi Protein [Mass/Vol] 6.6 g/dL Normal 6.4-8.2 [facility] Comment on above: Performed By: #### C MP ####[facility] Btgsmvkjxt77[address] [place] [address]Dr. Airam Tripathi Sodium [Moles/Vol] 135 mmol/L Critically low 136-145 Th [facility] Comment on above: Performed By: #### C MP ####[facility] Foktippdjg7[address] [place], [place] [address]Dr. Airam Tripathi Urea nitrogen [Mass/Vol] 51.0 mg/dL Critically high 7.0-18.0 [facility] Comment on above: Performed By: #### C MP ####[facility] Kxhssmrtpe9[address] [place], [place] [address]Dr. Airam Tripathi Urea nitrogen/Creatinine [Mass ratio] 28.0 mg/mg Normal The [facility] Comment on above: Performed By: #### C MP ####[facility] Qjoyijruqn04[address] [place], [place] [address]Dr. Airam Tripathi OSMOLALITYon 08-18-2022 Osmolality [Osmolality] 280 mosm/kg Normal 275-295 [facility] Comment on above: Performed By: #### O SMO ####[facility] Khzzmhjmhx5[address] [place], [place] [address]Dr. Airam Tripathi CBC AUTO DIFFon 08-16-2022 BASO # 0.0 103/ul Normal 0.0-0.1 [facility] Comment on above: Performed By: #### C BC ####[facility] Bclztpgowi[address] [place] [phone]. Airam Tripathi Basophils/100 WBC (Bld) 0.2 % Normal 0.2-2.0 The [facility] Comment on above: Performed By: #### C BC ####[facility] Nmxefostwa[address] [place], [place] [address]Dr. Airam Tripathi EO # 0.2 103/ul Normal 0.0-0.7 The [facility] Comment on above: Performed By: #### C BC ####[facility] Wyhxgjvwyc[address] [place], [place] [address]Dr. Airam Tripathi Eosinophils/100 WBC (Bld) 2.4 % Normal 0.9-7.0 The [facility] Comment on above: Performed By: #### C BC ####[facility] Kndqzilzao[address] [place], [place] [address]Dr. Airam Tripathi Erythrocyte distribution width (RBC) [Ratio] 14.2 % Normal 11.0-15.0 The [facility] Comment on above: Performed By: #### C BC ####[facility] Bkqbgoujvd7[address] [place], [place] [address]Dr. Airam Tripathi Hematocrit (Bld) [Volume fraction] 30.1 % Critically low 36.0-48.0 [facility] Comment on above: Performed By: #### C BC ####[facility] Pduiapmapn9[address] [place], [place] [address]Dr. Airam Tripathi Hemoglobin (Bld) [Mass/Vol] 9.2 g/dL Critically low 12.0-16.0 The [facility] Comment on above: Performed By: #### C BC ####[facility] Wdapzjiatu539[address] [place], [place] [address]Dr. Airam Tripathi IG # 0.04 10e3/ul Critically high 0.00-0.03 The [facility] Comment on above: Performed By: #### C BC ####[facility] Unaltadhjj[address] [place], [place] [address]Dr. Airam Tripathi IG % 0.4 % Normal 0.0-0.5 The [facility] Comment on above: Performed By: #### C BC ####[facility] Imksheqkbv8530 [place] [phone]. Airam Deuce LYMPH # 0.9 103/ul Critically low 1.2-3.8 [facility] Comment on above: Performed By: #### C BC ####[facility] Ehguhpoycb4130 [place] [phone]. Airam Deuce Lymphocytes/100 WBC (Bld) 9.3 % Critically low 20.5-60.0 [facility] Comment on above: Performed By: #### C BC ####[facility] Fhwmtwlhrf5[address] [place] [address]Dr. Airam Tripathi MANUAL DIFF REQ NO Normal [facility] Comment on above: Performed By: #### C BC ####[facility] Qxhhremfha6[address] [place], [place] [address]Dr. Selenaneil Tripathi MCH (RBC) [Entitic mass] 27.7 pg Normal 26.7-34.0 [facility] Comment on above: Performed By: #### C BC ####[facility] Eviaucoqwi120[address] [place], [place] [address]Dr. Airam Deuce MCHC (RBC) [Mass/Vol] 30.6 g/dL Normal 29.9-35.2 The [facility] Comment on above: Performed By: #### C BC ####[facility] Rtvyoyeali9750 [place] [address]Dr. Airam Tripathi MCV (RBC) [Entitic vol] 90.7 fL Normal 81.0-99.0 The [facility] Comment on above: Performed By: #### C BC ####[facility] Maephqnfau9423[address] [place], [place] [address]Dr. Selenaneil Deuce MONO # 0.5 103/ul Normal 0.3-0.8 The [facility] Comment on above: Performed By: #### C BC ####[facility] Kgdjiaqxeq7059 [place] [phone]. Airam Tripathi Monocytes/100 WBC (Bld) 5.3 % Normal 1.7-12.0 The [facility] Comment on above: Performed By: #### C BC ####[facility] Arwyudqrcv2804 [place] [phone]. Airam Tripathi NEUT # 7.7 103/ul Critically high 1.4-6.5 [facility] Comment on above: Performed By: #### C BC ####[facility] Qdjgxmvses2028 [place] [phone]. Airam Tripathi Neutrophils/100 WBC (Bld) 82.4 % Critically high 43.0-75.0 [facility] Comment on above: Performed By: #### C BC ####[facility] Hnpxcktkmx5360 [place] [address]Dr. Airam Tripathi Platelet mean volume (Bld) [Entitic vol] 9.8 fL Normal 9.5-13.5 [facility] Comment on above: Performed By: #### C BC ####[facility] Pidtzmyvix8472 [place] [address]Dr. Airam Tripathi PLT 285 103/ul Normal 150-450 The [facility] Comment on above: Performed By: #### C BC ####[facility] Iuqhntmaxb4604 [place] [phone]. Airam Tripathi RBC 3.32 106/ul Critically low 4.20-5.40 [facility] Comment on above: Performed By: #### C BC ####[facility] Zowbukonvx3472 [place] [address]Dr. Airam Tripathi WBC 9.4 103/ul Normal 4.0-11.0 The [facility] Comment on above: Performed By: #### C BC ####[facility] Pcayirizli2798 [place] [phone]. Airam Tripathi MRI WRIST RT WO CONon 2022 MRI WRIST RT WO CON Normal The [facility] PROF 14(COMP METB)on 023 Albumin [Mass/Vol] 3.1 g/dL Critically low 3.4-5.0 Th [facility] Comment on above: Performed By: #### C MP ####[facility] Vzwlwpdyrz[address] [place], [place] [address]Dr. Airam Tripathi Albumin/Globulin [Mass ratio] 0.9 {ratio} Normal [facility] Comment on above: Performed By: #### C MP ####[facility] Opkxnuyaon8120 [place] [address]Dr. Airam Deuce ALP [Catalytic activity/Vol] 162 U/L Critically high 46-116 [facility] Comment on above: Performed By: #### C MP ####[facility] Ftyxtpthga94[address] [place], [place] [address]Dr. Airam Deuce ALT [Catalytic activity/Vol] 19 U/L Normal 14-59 [facility] Comment on above: Performed By: #### C MP ####[facility] Icjiryftkt0428[address] [place], [place] [address]Dr. Airam Tripathi Anion gap [Moles/Vol] 13.0 mmol/L Normal Th [facility] Comment on above: Performed By: #### C MP ####[facility] Cygemwnhle227[address] [place], [place] [address]Dr. Airam Deuce AST [Catalytic activity/Vol] 21 U/L Normal 15-37 [facility] Comment on above: Performed By: #### C MP ####[facility] Xymqifsssf5[address] [place], [place] [address]Dr. Airam Tripathi Bilirubin [Mass/Vol] 0.3 mg/dL Normal 0.2-1.0 [facility] Comment on above: Performed By: #### C MP ####[facility] Avdscgzfkc213[address] [place], [place] [address]Dr. Airam Tripathi Calcium [Mass/Vol] 8.4 mg/dL Critically low 8.5-10.1 [facility] Comment on above: Performed By: #### C MP ####[facility] Wqicreaxbr859[address] [place], [place] [address]Dr. Airam Tripathi Chloride [Moles/Vol] 103 mmol/L Normal 98-107 [facility] Comment on above: Performed By: #### C MP ####[facility] Jacrrhfrpp9[address] [place], [place] [address]Dr. Airam Tripathi CO2 [Moles/Vol] 23.3 mmol/L Normal 21.0-32.0 [facility] Comment on above: Performed By: #### C MP ####[facility] Wzgrqakcfy9831 [place] [address]Dr. Airam Deuce Creatinine [Mass/Vol] 1.02 mg/dL Normal 0.55-1.02 [facility] Comment on above: Performed By: #### C MP ####[facility] Cjgjnxnbfu3272 [place] [address]Dr. Airam Deuce EGFR-AF QATARI >60 Normal >=60 The [facility] Comment on above: Performed By: #### C MP ####[facility] Yywlgdmktf3117 [place] [address]Dr. Airam Tripathi EGFR-NON AF QATARI 55 mL/min/1.73m2 Critically low >=60 [facility] Comment on above: Performed By: #### C MP ####[facility] Llluvtftax[address] [place], [place] [address]Dr. Airam Tripathi Globulin (S) [Mass/Vol] 3.4 g/dL Normal [facility] Comment on above: Performed By: #### C MP ####[facility] Xvswizeeba325[address] [place], [place] [address]Dr. Airam Tripathi Glucose [Mass/Vol] 88 mg/dL Normal 74-106 [facility] Comment on above: Performed By: #### C MP ####[facility] Zoujtgeabp45[address] [place], [place] [address]Dr. Airam Tripathi Potassium [Moles/Vol] 4.3 mmol/L Normal 3.5-5.1 The [facility] Comment on above: Performed By: #### C MP ####[facility] Glrzrfiquu6019 [place] [phone]. Airam Tripathi Protein [Mass/Vol] 6.5 g/dL Normal 6.4-8.2 The [facility] Comment on above: Performed By: #### C MP ####[facility] Vbckyrtloe2170 [place] [address]Dr. Airam Tripathi Sodium [Moles/Vol] 135 mmol/L Critically low 136-145 Th [facility] Comment on above: Performed By: #### C MP ####[facility] Tjywsjrtxy3365 [place] [phone]. Airam Tripathi Urea nitrogen [Mass/Vol] 27.0 mg/dL Critically high 7.0-18.0 [facility] Comment on above: Performed By: #### C MP ####[facility] Kxvrfeeyam5834 [place] [phone]. Airam Tripathi Urea nitrogen/Creatinine [Mass ratio] 26.5 mg/mg Normal [facility] Comment on above: Performed By: #### C MP ####[facility] Xeqpkdgvgz6324 [place] [phone]. Airam Tripathi CT HEAD WO CONon 08-06-2022 CT HEAD WO CON Normal The [facility] CT LSPINE WO CONon 3 CT LSPINE WO CON Normal The [facility] XR HAND RT MIN 3Von 08-06-19 23 XR HAND RT MIN 3V Normal [facility] XR KNEE LT 4V or >on 023 XR KNEE LT 4V or > Normal [facility] XR WRIST RT MIN 3 Von 2022 XR WRIST RT MIN 3 V Normal [facility] OSMOLALITYon 08-05-2022 Osmolality [Osmolality] 282 mosm/kg Normal 275-295 The [facility] Comment on above: Performed By: #### O SMO ####[facility] Dvtpgagylv1290 [place] [phone]. Airam Tripathi CBC AUTO DIFFon 08-03-2022 BASO # 0.0 103/ul Normal 0.0-0.1 [facility] Comment on above: Performed By: #### C BC ####[facility] Jbvcnsberu5958 [place] [phone]. Airam Tripathi Basophils/100 WBC (Bld) 0.5 % Normal 0.2-2.0 The [facility] Comment on above: Performed By: #### C BC ####[facility] Pqqogfwoow6603 [place] [phone]. Airam Tripathi EO # 0.5 103/ul Normal 0.0-0.7 The [facility] Comment on above: Performed By: #### C BC ####[facility] Tdjbvsjkfx6824 [place] [address]Dr. Airam Tripathi Eosinophils/100 WBC (Bld) 5.2 % Normal 0.9-7.0 [facility] Comment on above: Performed By: #### C BC ####[facility] Xtujnrbpco5[address] [place], [place] [address]Dr. Airam Tripathi Erythrocyte distribution width (RBC) [Ratio] 14.3 % Normal 11.0-15.0 [facility] Comment on above: Performed By: #### C BC ####[facility] Kxntfwqzol4148[address] [place], [place] [address]Dr. Airam Tripathi Hematocrit (Bld) [Volume fraction] 31.4 % Critically low 36.0-48.0 [facility] Comment on above: Performed By: #### C BC ####[facility] Ujkwhqqfuf24[address] [place], [place] [address]DrKianna Airam Tripathi Hemoglobin (Bld) [Mass/Vol] 9.5 g/dL Critically low 12.0-16.0 The [facility] Comment on above: Performed By: #### C BC ####[facility] Lglpfgmarv41[address] [place], [place] [address]DrKianna Airam Tripathi IG # 0.05 10e3/ul Critically high 0.00-0.03 The [facility] Comment on above: Performed By: #### C BC ####[facility] Bdduvfgojk6468[address] [place], [place] [address]DrKianna Airam Tirpathi IG % 0.6 % Critically high 0.0-0.5 The [facility] Comment on above: Performed By: #### C BC ####[facility] Xmnsxtgghr850[address] [place], [place] [address]DrKianna Tripathi LYMPH # 1.5 103/ul Normal 1.2-3.8 The [facility] Comment on above: Performed By: #### C BC ####[facility] Nsdoeeobgd19[address] [place], [place] [address]Dr. Airam Deuce Lymphocytes/100 WBC (Bld) 17.6 % Critically low 20.5-60.0 [facility] Comment on above: Performed By: #### C BC ####[facility] Exvgoihdmb6983 [place] [address]DrKianna Tripathi MANUAL DIFF REQ NO Normal [facility] Comment on above: Performed By: #### C BC ####[facility] Shyawpkdvx0016 [place] [address]Dr. Airam Tripathi MCH (RBC) [Entitic mass] 29.0 pg Normal 26.7-34.0 [facility] Comment on above: Performed By: #### C BC ####[facility] Wwbgkdovbr24[address] [place], [place] [address]Dr. Airam Tripathi MCHC (RBC) [Mass/Vol] 30.3 g/dL Normal 29.9-35.2 [facility] Comment on above: Performed By: #### C BC ####[facility] Fcfsjhjhng714[address] [place], [place] [address]Dr. Airam Tripathi MCV (RBC) [Entitic vol] 95.7 fL Normal 81.0-99.0 [facility] Comment on above: Performed By: #### C BC ####[facility] Wtbybirbks[address] [place], [place] [address]DrKianna Tripathi MONO # 0.7 103/ul Normal 0.3-0.8 The [facility] Comment on above: Performed By: #### C BC ####[facility] Gcpqjwlreo44[address] [place], [place] [address]Dr. Airam Tripathi Monocytes/100 WBC (Bld) 8.5 % Normal 1.7-12.0 The [facility] Comment on above: Performed By: #### C BC ####[facility] Hfozweylba5[address] [place], [place] [address]DrKianna Tripathi NEUT # 5.8 103/ul Normal 1.4-6.5 The [facility] Comment on above: Performed By: #### C BC ####[facility] Hfkhcnlutb7[address] [place], [place] [address]DrKianna Tripathi Neutrophils/100 WBC (Bld) 67.6 % Normal 43.0-75.0 [facility] Comment on above: Performed By: #### C BC ####[facility] Ezvtoqbotq9561 [place] [address]DrKianna Tripathi Platelet mean volume (Bld) [Entitic vol] 9.5 fL Normal 9.5-13.5 [facility] Comment on above: Performed By: #### C BC ####[facility] Kqsfaitbtf2528 [place] [address]DrKianna Tripathi PLT 292 103/ul Normal 150-450 [facility] Comment on above: Performed By: #### C BC ####[facility] Myiaqxjtqm6178 [place] [address]Dr. Airam Tripathi RBC 3.28 106/ul Critically low 4.20-5.40 [facility] Comment on above: Performed By: #### C BC ####[facility] Tvjjatxrqh7[address] [place], [place] [address]DrKianna Tripathi WBC 8.6 103/ul Normal 4.0-11.0 [facility] Comment on above: Performed By: #### C BC ####[facility] Shyjbtqqqh2416 [place] [address]DrKianna Tripathi PROF 14(COMP METB)on 023 Albumin [Mass/Vol] 3.0 g/dL Critically low 3.4-5.0 Th [facility] Comment on above: Performed By: #### C MP ####[facility] Chlothdeyl1816 [place] [address]DrKianna Tripathi Albumin/Globulin [Mass ratio] 0.9 {ratio} Normal [facility] Comment on above: Performed By: #### C MP ####[facility] Upnutxhlil7501 [place] [address]DrKianna Tripathi ALP [Catalytic activity/Vol] 184 U/L Critically high 46-116 [facility] Comment on above: Performed By: #### C MP ####[facility] Mcyriuwnik[address] [place], [place] [address]DrKianna Tripathi ALT [Catalytic activity/Vol] 18 U/L Normal 14-59 [facility] Comment on above: Performed By: #### C MP ####[facility] Huexdezywb4494 [place] [phone]. Airam Tripathi Anion gap [Moles/Vol] 11.2 mmol/L Normal Th e [facility] Comment on above: Performed By: #### C MP ####[facility] Nghxvllxpz2460 [place] [phone]. Airam Tripathi AST [Catalytic activity/Vol] 19 U/L Normal 15-37 The [facility] Comment on above: Performed By: #### C MP ####[facility] Rebwokhgwu7964 [place] [phone]. Airam Tripathi Bilirubin [Mass/Vol] 0.3 mg/dL Normal 0.2-1.0 [facility] Comment on above: Performed By: #### C MP ####[facility] Ymuxshytlu[address] [place], [place] [address]Dr. Airam Deuce Calcium [Mass/Vol] 8.8 mg/dL Normal 8.5-10.1 [facility] Comment on above: Performed By: #### C MP ####[facility] Swmemruklz7624 [place] [address]Dr. Airam Deuce Chloride [Moles/Vol] 101 mmol/L Normal 98-107 The [facility] Comment on above: Performed By: #### C MP ####[facility] Bnvoessopa0091 [place] [phone]. Airam Tripathi CO2 [Moles/Vol] 25.4 mmol/L Normal 21.0-32.0 The [facility] Comment on above: Performed By: #### C MP ####[facility] Qprgqgeojq8140 [place] [phone]. Airam Tripathi Creatinine [Mass/Vol] 1.05 mg/dL Critically high 0.55-1.02 The [facility] Comment on above: Performed By: #### C MP ####[facility] Aolnzkfzjt1504 [place] [phone]. Airam Deuce EGFR-AF QATARI >60 Normal >=60 The [facility] Comment on above: Performed By: #### C MP ####[facility] Yquekageok8983 [place] [phone]. Airam Tripathi EGFR-NON AF QATARI 53 mL/min/1.73m2 Critically low >=60 [facility] Comment on above: Performed By: #### C MP ####[facility] Hwynnjpnra2433 [place] [phone]. Airam Tripathi Globulin (S) [Mass/Vol] 3.4 g/dL Normal [facility] Comment on above: Performed By: #### C MP ####[facility] Diicviusxx2202 [place] [phone]. Airam Tripathi Glucose [Mass/Vol] 78 mg/dL Normal 74-106 [facility] Comment on above: Performed By: #### C MP ####[facility] Bziqmsrmta1766 [place] [address]Dr. Airam Deuce Potassium [Moles/Vol] 4.6 mmol/L Normal 3.5-5.1 [facility] Comment on above: Performed By: #### C MP ####[facility] Drquzijuom0895 [place] [phone]. Airam Tripathi Protein [Mass/Vol] 6.4 g/dL Normal 6.4-8.2 [facility] Comment on above: Performed By: #### C MP ####[facility] Ersyfkrdnm1745 [place] [phone]. Airam Tripathi Sodium [Moles/Vol] 133 mmol/L Critically low 136-145 Th [facility] Comment on above: Performed By: #### C MP ####[facility] Pmwyggsxdn2573 [place] [phone]. Airam Tripathi Urea nitrogen [Mass/Vol] 26.0 mg/dL Critically high 7.0-18.0 [facility] Comment on above: Performed By: #### C MP ####[facility] Slxkylyoku3423 [place] [address]Dr. Airam eDuce Urea nitrogen/Creatinine [Mass ratio] 24.8 mg/mg Normal [facility] Comment on above: Performed By: #### C MP ####[facility] Vatgstfqbw1826 [place] [address]Dr. Airam Tripathi OSMOLALITYon 07-29-2022 Osmolality [Osmolality] 287 mosm/kg Normal 275-295 The [facility] Comment on above: Performed By: #### O SMO ####[facility] Zdjfyyvrkh16[address] [place], [place] [address]Dr. Airam Tripathi CBC AUTO DIFFon 07-27-2022 BASO # 0.0 103/ul Normal 0.0-0.1 [facility] Comment on above: Performed By: #### C BC ####[facility] Tqezklrree16[address] [place], [place] [address]Dr. Airam Tripathi Basophils/100 WBC (Bld) 0.4 % Normal 0.2-2.0 [facility] Comment on above: Performed By: #### C BC ####[facility] Ubxqplswcv9038[address] [place], [place] [address]Dr. Selenaneil Deuce EO # 0.2 103/ul Normal 0.0-0.7 The [facility] Comment on above: Performed By: #### C BC ####[facility] Qwbhckrxzh665[address] [place], [place] [address]Dr. Selenaneil Tripathi Eosinophils/100 WBC (Bld) 2.6 % Normal 0.9-7.0 [facility] Comment on above: Performed By: #### C BC ####[facility] Lexgccmujq1360[address] [place], [place] [address]Dr. Selenaneil Deuce Erythrocyte distribution width (RBC) [Ratio] 14.2 % Normal 11.0-15.0 The [facility] Comment on above: Performed By: #### C BC ####[facility] Iqrytdcvau[address] [place], [place] [address]Dr. Airam Tripathi Hematocrit (Bld) [Volume fraction] 31.3 % Critically low 36.0-48.0 [facility] Comment on above: Performed By: #### C BC ####[facility] Okbgpbdsul49[address] [place], [place] [address]Dr. Airam Tripathi Hemoglobin (Bld) [Mass/Vol] 9.3 g/dL Critically low 12.0-16.0 [facility] Comment on above: Performed By: #### C BC ####[facility] Ukbrdlnnis1565 [place] [address]Dr. Airam Tripathi IG # 0.05 10e3/ul Critically high 0.00-0.03 [facility] Comment on above: Performed By: #### C BC ####[facility] Lhvenquvjg1450 [place] [address]Dr. Airam Tripathi IG % 0.7 % Critically high 0.0-0.5 [facility] Comment on above: Performed By: #### C BC ####[facility] Aeiapbjzoq23[address] [place] [address]Dr. Airam Tripathi LYMPH # 1.0 103/ul Critically low 1.2-3.8 [facility] Comment on above: Performed By: #### C BC ####[facility] Dfcuokzwed6158 [place] [address]Dr. Airam Tripathi Lymphocytes/100 WBC (Bld) 13.4 % Critically low 20.5-60.0 [facility] Comment on above: Performed By: #### C BC ####[facility] Imlxyaedlu[address] [place], [place] [address]Dr. Airam Tripathi MANUAL DIFF REQ NO Normal [facility] Comment on above: Performed By: #### C BC ####[facility] Feqklexjsl[address] [place], [place] [address]DrKianna Tripathi MCH (RBC) [Entitic mass] 28.8 pg Normal 26.7-34.0 [facility] Comment on above: Performed By: #### C BC ####[facility] Lhzzfhkban85[address] [place] [address]DrKianna Tripathi MCHC (RBC) [Mass/Vol] 29.7 g/dL Critically low 29.9-35.2 The [facility] Comment on above: Performed By: #### C BC ####[facility] Eulsuvqbwc6414 [place] [address]DrKianna Tripathi MCV (RBC) [Entitic vol] 96.9 fL Normal 81.0-99.0 The [facility] Comment on above: Performed By: #### C BC ####[facility] Nhrshiyfli49[address] [place] [address]Dr. Airam Tripathi MONO # 0.5 103/ul Normal 0.3-0.8 The [facility] Comment on above: Performed By: #### C BC ####[facility] Urgthrrtgu09[address] [place] [address]Dr. Airam Deuce Monocytes/100 WBC (Bld) 6.3 % Normal 1.7-12.0 The [facility] Comment on above: Performed By: #### C BC ####[facility] Uqmlxhxdhr3920 [place] [address]Dr. Airam Tripathi NEUT # 5.8 103/ul Normal 1.4-6.5 The [facility] Comment on above: Performed By: #### C BC ####[facility] Bqajkwitmp2956 [place] [address]Dr. Selenaneil Tripathi Neutrophils/100 WBC (Bld) 76.6 % Critically high 43.0-75.0 The [facility] Comment on above: Performed By: #### C BC ####[facility] Reimublehr1925[address] [place], [place] [address]Dr. Airam Deuce Platelet mean volume (Bld) [Entitic vol] 10.3 fL Normal 9.5-13.5 The [facility] Comment on above: Performed By: #### C BC ####[facility] Ivgnkibyjx14[address] [place], [place] [address]Dr. Airam Deuce PLT 265 103/ul Normal 150-450 The [facility] Comment on above: Performed By: #### C BC ####[facility] Vnyvmvcfln[address] [place], [place] [address]Dr. Airam Tripathi RBC 3.23 106/ul Critically low 4.20-5.40 The [facility] Comment on above: Performed By: #### C BC ####[facility] Kjhtpgysiw7339 [place] [phone]. Airam Tripathi WBC 7.6 103/ul Normal 4.0-11.0 The [facility] Comment on above: Performed By: #### C BC ####[facility] Rpfoudsngp6309 [place] [address]DrKianna Tripathi PROF 14(COMP METB)on 023 Albumin [Mass/Vol] 2.9 g/dL Critically low 3.4-5.0 [facility] Comment on above: Performed By: #### C MP ####[facility] Zdwfyjnkdi5440 [place] [address]Dr. Airam Tripathi Albumin/Globulin [Mass ratio] 0.8 {ratio} Normal [facility] Comment on above: Performed By: #### C MP ####[facility] Qoarabpjet9519 [place] [address]Dr. Airam Tripathi ALP [Catalytic activity/Vol] 175 U/L Critically high 46-116 [facility] Comment on above: Performed By: #### C MP ####[facility] Gqaqijbwmw47[address] [place], [place] [address]Dr. Airam Tripathi ALT [Catalytic activity/Vol] 24 U/L Normal 14-59 [facility] Comment on above: Performed By: #### C MP ####[facility] Cyypepyfaw9616[address] [place], [place] [address]Dr. Airam Tripathi Anion gap [Moles/Vol] 14.3 mmol/L Normal Th [facility] Comment on above: Performed By: #### C MP ####[facility] Bbiybtuiwj34[address] [place] [address]Dr. Airam Tripathi AST [Catalytic activity/Vol] 25 U/L Normal 15-37 [facility] Comment on above: Performed By: #### C MP ####[facility] Ayaxdwfmin5097 [place] [address]DrKianna Tripathi Bilirubin [Mass/Vol] 0.2 mg/dL Normal 0.2-1.0 [facility] Comment on above: Performed By: #### C MP ####[facility] Khcecpqkfd3747 [place] [address]Dr. Airam Tripathi Calcium [Mass/Vol] 8.6 mg/dL Normal 8.5-10.1 [facility] Comment on above: Performed By: #### C MP ####[facility] Ezoalxyzbv1336 [place] [address]Dr. Airam Tripathi Chloride [Moles/Vol] 102 mmol/L Normal 98-107 The [facility] Comment on above: Performed By: #### C MP ####[facility] Oladbtoczd7198 [place] [address]Dr. Airam Tripathi CO2 [Moles/Vol] 23.7 mmol/L Normal 21.0-32.0 The [facility] Comment on above: Performed By: #### C MP ####[facility] Aewabolzsa0637 [place] [address]Dr. Airam Tripathi Creatinine [Mass/Vol] 1.29 mg/dL Critically high 0.55-1.02 The [facility] Comment on above: Performed By: #### C MP ####[facility] Yqdjewppxv17[address] [place], [place] [address]Dr. Airam Deuce EGFR-AF QATARI 51 mL/min/1.73m2 Critically low >=60 The [facility] Comment on above: Performed By: #### C MP ####[facility] Uaxxjlmjgs185[address] [place], [place] [address]Dr. Airam Tripathi EGFR-NON AF QATARI 42 mL/min/1.73m2 Critically low >=60 The [facility] Comment on above: Performed By: #### C MP ####[facility] Akehhbostp[address] [place] [address]Dr. Airam Deuce Globulin (S) [Mass/Vol] 3.6 g/dL Normal The [facility] Comment on above: Performed By: #### C MP ####[facility] Rzzgymcfrx6593 [place] [address]Dr. Airam Deuce Glucose [Mass/Vol] 84 mg/dL Normal 74-106 The [facility] Comment on above: Performed By: #### C MP ####[facility] Rafpfihavn7948 [place] [address]Dr. Airam Deuce Potassium [Moles/Vol] 5.0 mmol/L Normal 3.5-5.1 The [facility] Comment on above: Performed By: #### C MP ####[facility] Caisgonqvu1620 [place] [address]Dr. Selenaneil Deuce Protein [Mass/Vol] 6.5 g/dL Normal 6.4-8.2 The [facility] Comment on above: Performed By: #### C MP ####[facility] Hgnckpuqjo760[address] [place], [place] [address]Dr. Airam Tripathi Sodium [Moles/Vol] 135 mmol/L Critically low 136-145 Th [facility] Comment on above: Performed By: #### C MP ####[facility] Nteigpmzya0869[address] [place], [place] [address]Dr. Airam Tripathi Urea nitrogen [Mass/Vol] 28.0 mg/dL Critically high 7.0-18.0 [facility] Comment on above: Performed By: #### C MP ####[facility] Fknqwqfhdq0289[address] [place], [place] [address]Dr. Airam Tripathi Urea nitrogen/Creatinine [Mass ratio] 21.7 mg/mg Normal [facility] Comment on above: Performed By: #### C MP ####[facility] Uphzmpnyrt77[address] [place], [place] [address]Dr. Selenaneil Deuce XR LSPINE MIN 4 VIEWSon 02-0 XR LSPINE MIN 4 VIEWS Normal [facility] OSMOLALITYon 07-24-2022 Osmolality [Osmolality] 279 mosm/kg Normal 275-295 The [facility] Comment on above: Performed By: #### O SMO ####[facility] Ubwwopbvcn7[address] [place], [place] [address]Dr. Selenaneil Deuce CBC AUTO DIFFon 07-21-2022 BASO # 0.0 103/ul Normal 0.0-0.1 The [facility] Comment on above: Performed By: #### C BC ####[facility] Scjeqxtpir7449[address] [place], [place] [address]Dr. Airam Tripathi Basophils/100 WBC (Bld) 0.4 % Normal 0.2-2.0 The [facility] Comment on above: Performed By: #### C BC ####[facility] Aosqjfjkvk9119 [place] [phone]. Airam Tripathi EO # 0.2 103/ul Normal 0.0-0.7 The [facility] Comment on above: Performed By: #### C BC ####[facility] Tmenfvybkr3562 [place] [phone]. Airam Tripathi Eosinophils/100 WBC (Bld) 2.3 % Normal 0.9-7.0 The [facility] Comment on above: Performed By: #### C BC ####[facility] Ctkasgyddy0570 [place] [address]Dr. Airam Tripathi Erythrocyte distribution width (RBC) [Ratio] 13.6 % Normal 11.0-15.0 The [facility] Comment on above: Performed By: #### C BC ####[facility] Mklgzqabtb5137[address] [place], [place] [address]Dr. Airam Tripathi Hematocrit (Bld) [Volume fraction] 32.6 % Critically low 36.0-48.0 The [facility] Comment on above: Performed By: #### C BC ####[facility] Jgtpqufdil34[address] [place], [place] [address]Dr. Airam Tripathi Hemoglobin (Bld) [Mass/Vol] 9.5 g/dL Critically low 12.0-16.0 The [facility] Comment on above: Performed By: #### C BC ####[facility] Vxndatvglk7191 [place] [address]Dr. Airam Tripathi IG # 0.03 10e3/ul Normal 0.00-0.03 The [facility] Comment on above: Performed By: #### C BC ####[facility] Iouzzpythm0601 [place] [address]Dr. Airam Tripathi IG % 0.4 % Normal 0.0-0.5 The [facility] Comment on above: Performed By: #### C BC ####[facility] Hnwfvoxqlo305[address] [place], [place] [address]Dr. Airam Tripathi LYMPH # 1.4 103/ul Normal 1.2-3.8 The [facility] Comment on above: Performed By: #### C BC ####[facility] Alyugcvozb2342 [place] [phone]. Airam Tripathi Lymphocytes/100 WBC (Bld) 18.2 % Critically low 20.5-60.0 The [facility] Comment on above: Performed By: #### C BC ####[facility] Cwlhfopvav8958 [place] [phone]. Airam Tripathi MANUAL DIFF REQ NO Normal The [facility] Comment on above: Performed By: #### C BC ####[facility] Fkmjrvtxrj5694 [place] [phone]. Airam Tripathi MCH (RBC) [Entitic mass] 29.5 pg Normal 26.7-34.0 The [facility] Comment on above: Performed By: #### C BC ####[facility] Aqlzocyoxv1883 [place] [address]Dr. Airam Tripathi MCHC (RBC) [Mass/Vol] 29.1 g/dL Critically low 29.9-35.2 The [facility] Comment on above: Performed By: #### C BC ####[facility] Jrkrxlhknr2444 [place] [address]Dr. Airam Tripathi MCV (RBC) [Entitic vol] 101.2 fL Critically high 81.0-99.0 The [facility] Comment on above: Performed By: #### C BC ####[facility] Vweqfpsrfa4403 [place] [phone]. Airam Deuce MONO # 0.6 103/ul Normal 0.3-0.8 The [facility] Comment on above: Performed By: #### C BC ####[facility] Jrymbdqfki1754 [place] [phone]. Airam Tripathi Monocytes/100 WBC (Bld) 7.9 % Normal 1.7-12.0 The [facility] Comment on above: Performed By: #### C BC ####[facility] Ncdqhdjemp244[address] [place], [place] [address]Dr. Airam Tripathi NEUT # 5.5 103/ul Normal 1.4-6.5 The [facility] Comment on above: Performed By: #### C BC ####[facility] Xkxfzcqjly7591 [place] [phone]. Airam Tripathi Neutrophils/100 WBC (Bld) 70.8 % Normal 43.0-75.0 [facility] Comment on above: Performed By: #### C BC ####[facility] Dfntjordsr1309 [place] [phone]. Airam Tripathi Platelet mean volume (Bld) [Entitic vol] 9.6 fL Normal 9.5-13.5 [facility] Comment on above: Performed By: #### C BC ####[facility] Lsvytejqwp6368 [place] [phone]. Airam Deuce PLT 265 103/ul Normal 150-450 [facility] Comment on above: Performed By: #### C BC ####[facility] Xmznizqzid8110 [place] [address]Dr. Selenaneil Deuce RBC 3.22 106/ul Critically low 4.20-5.40 [facility] Comment on above: Performed By: #### C BC ####[facility] Tgggrkvinx4542 [place] [address]Dr. Airam Tripathi WBC 7.8 103/ul Normal 4.0-11.0 [facility] Comment on above: Performed By: #### C BC ####[facility] Afqymeqzbd6597 [place] [address]Dr. Airam Tripathi PROF 14(COMP METB)on 023 Albumin [Mass/Vol] 2.9 g/dL Critically low 3.4-5.0 [facility] Comment on above: Performed By: #### C MP ####[facility] Hasgobokrx9601 [place] [address]Dr. Airam Deuce Albumin/Globulin [Mass ratio] 0.9 {ratio} Normal [facility] Comment on above: Performed By: #### C MP ####[facility] Nyqjukovlw8609 [place] [address]Dr. Airam Tripathi ALP [Catalytic activity/Vol] 176 U/L Critically high 46-116 [facility] Comment on above: Performed By: #### C MP ####[facility] Yjyrqffexb7374 [place] [phone]. Airam Tripathi ALT [Catalytic activity/Vol] 19 U/L Normal 14-59 The [facility] Comment on above: Performed By: #### C MP ####[facility] Fjwsqnmbpf1949 [place] [phone]. Airam Tripathi Anion gap [Moles/Vol] 12.6 mmol/L Normal Th e [facility] Comment on above: Performed By: #### C MP ####[facility] Kmzyzeetcm5847 [place] [address]Dr. Airam Tripathi AST [Catalytic activity/Vol] 25 U/L Normal 15-37 The [facility] Comment on above: Performed By: #### C MP ####[facility] Wpyxizhavz8007[address] [place], [place] [address]Dr. Airam Tripathi Bilirubin [Mass/Vol] 0.2 mg/dL Normal 0.2-1.0 The [facility] Comment on above: Performed By: #### C MP ####[facility] Edotzniawb786[address] [place], [place] [address]Dr. Airam Tripathi Calcium [Mass/Vol] 8.5 mg/dL Normal 8.5-10.1 The [facility] Comment on above: Performed By: #### C MP ####[facility] Yqlpiyivkj790[address] [place], [place] [address]Dr. Airam Tripathi Chloride [Moles/Vol] 101 mmol/L Normal 98-107 The [facility] Comment on above: Performed By: #### C MP ####[facility] Eolvqxpxev8928 [place] [address]Dr. Airam Tripathi CO2 [Moles/Vol] 25.9 mmol/L Normal 21.0-32.0 The [facility] Comment on above: Performed By: #### C MP ####[facility] Lbqyvenqzc0612[address] [place], [place] [address]Dr. Airam Tripathi Creatinine [Mass/Vol] 1.11 mg/dL Critically high 0.55-1.02 The [facility] Comment on above: Performed By: #### C MP ####[facility] Yigchbstzq7916 [place] [phone]. Airam Tripathi EGFR-AF QATARI >60 Normal >=60 The [facility] Comment on above: Performed By: #### C MP ####[facility] Unxdnhkhxs0146 [place] [address]Dr. Airam Tripathi EGFR-NON AF QATARI 50 mL/min/1.73m2 Critically low >=60 The [facility] Comment on above: Performed By: #### C MP ####[facility] Ymlqmocxxy2963 [place] [address]Dr. Airam Tripathi Globulin (S) [Mass/Vol] 3.2 g/dL Normal [facility] Comment on above: Performed By: #### C MP ####[facility] Wwclzlbevm[address] [place], [place] [address]Dr. Airam Tripathi Glucose [Mass/Vol] 80 mg/dL Normal 74-106 The [facility] Comment on above: Performed By: #### C MP ####[facility] Cubeievmlo232[address] [place], [place] [address]Dr. Airam Tripathi Potassium [Moles/Vol] 3.5 mmol/L Normal 3.5-5.1 [facility] Comment on above: Performed By: #### C MP ####[facility] Lqyjvgqjcn9827[address] [place], [place] [address]Dr. Airam Tripathi Protein [Mass/Vol] 6.1 g/dL Critically low 6.4-8.2 Th [facility] Comment on above: Performed By: #### C MP ####[facility] Ibndfdlyze228[address] [place], [place] [address]Dr. Airam Tripathi Sodium [Moles/Vol] 136 mmol/L Normal 136-145 The [facility] Comment on above: Performed By: #### C MP ####[facility] Uemfwggevz[address] [place], [place] [address]Dr. Airam Tripathi Urea nitrogen [Mass/Vol] 31.0 mg/dL Critically high 7.0-18.0 [facility] Comment on above: Performed By: #### C MP ####[facility] Ssxugaxkbo330[address] [place], [place] [address]Dr. Airam Tripathi Urea nitrogen/Creatinine [Mass ratio] 27.9 mg/mg Normal The [facility] Comment on above: Performed By: #### C MP ####[facility] Zidyppoplp4936 [place] [address]Dr. Airam Tripathi OSMOLALITYon 07-19-2022 Osmolality [Osmolality] 285 mosm/kg Normal 275-295 The [facility] Comment on above: Performed By: #### O SMO ####[facility] Hwmkvwdpcn7388 [place] [address]Dr. Airam Tripathi CBC AUTO DIFFon 07-15-2022 BASO # 0.0 103/ul Normal 0.0-0.1 The [facility] Comment on above: Performed By: #### C BC ####[facility] Sbapqldaog1591 [place] [address]Dr. Airam Tripathi Basophils/100 WBC (Bld) 0.2 % Normal 0.2-2.0 The [facility] Comment on above: Performed By: #### C BC ####[facility] Lmyqjjkplh1255 [place] [address]Dr. Airam Tripathi EO # 0.1 103/ul Normal 0.0-0.7 The [facility] Comment on above: Performed By: #### C BC ####[facility] Pgnbcmkqwm1336 [place] [address]Dr. Airam Tripathi Eosinophils/100 WBC (Bld) 1.4 % Normal 0.9-7.0 The [facility] Comment on above: Performed By: #### C BC ####[facility] Ylrigpbjlb6316 [place] [address]Dr. Airam Tripathi Erythrocyte distribution width (RBC) [Ratio] 13.0 % Normal 11.0-15.0 The [facility] Comment on above: Performed By: #### C BC ####[facility] Uptzytelnb6673 [place] [address]Dr. Airam Tripathi Hematocrit (Bld) [Volume fraction] 29.3 % Critically low 36.0-48.0 The [facility] Comment on above: Performed By: #### C BC ####[facility] Uqcmbmeivi5502 [place] [address]Dr. Airam Tripathi Hemoglobin (Bld) [Mass/Vol] 10.3 g/dL Critically low 12.0-16.0 The [facility] Comment on above: Performed By: #### C BC ####[facility] Adknvbmaei4268 [place] [address]Dr. Airam Tripathi IG # 0.05 10e3/ul Critically high 0.00-0.03 The [facility] Comment on above: Performed By: #### C BC ####[facility] Jxszdlbxdv[address] [place], [place] [address]Dr. Airam Tripathi IG % 0.6 % Critically high 0.0-0.5 The [facility] Comment on above: Performed By: #### C BC ####[facility] Gotzgspcuf1158[address] [place], [place] [address]Dr. Airam Tripathi LYMPH # 0.9 103/ul Critically low 1.2-3.8 The [facility] Comment on above: Performed By: #### C BC ####[facility] Ytzjbfhovc0[address] [place], [place] [address]Dr. Airam Tripathi Lymphocytes/100 WBC (Bld) 10.6 % Critically low 20.5-60.0 The [facility] Comment on above: Performed By: #### C BC ####[facility] Gptkjltass99[address] [place], [place] [address]Dr. Airam Tripathi MANUAL DIFF REQ NO Normal [facility] Comment on above: Performed By: #### C BC ####[facility] Mjjutidpyd0634[address] [place], [place] [address]Dr. Airam Tripathi MCH (RBC) [Entitic mass] 29.3 pg Normal 26.7-34.0 The [facility] Comment on above: Performed By: #### C BC ####[facility] Ikjmucrxiu6269[address] [place], [place] [address]Dr. Airam Tripathi MCHC (RBC) [Mass/Vol] 35.2 g/dL Normal 29.9-35.2 The [facility] Comment on above: Performed By: #### C BC ####[facility] Zocxhijbhv1568 [place] [phone]. Airam Tripathi MCV (RBC) [Entitic vol] 83.5 fL Normal 81.0-99.0 The [facility] Comment on above: Performed By: #### C BC ####[facility] Nzifusvsqc3106 [place] [phone]. Airam Tripathi MONO # 0.5 103/ul Normal 0.3-0.8 The [facility] Comment on above: Performed By: #### C BC ####[facility] Eqbtwzdoyl[address] [place], [place] [address]Dr. Airam Tripathi Monocytes/100 WBC (Bld) 5.1 % Normal 1.7-12.0 The [facility] Comment on above: Performed By: #### C BC ####[facility] Zfrdzrvpjk417[address] [place], [place] [address]Dr. Airam Tripathi NEUT # 7.3 103/ul Critically high 1.4-6.5 The [facility] Comment on above: Performed By: #### C BC ####[facility] Aiymgemcrd6[address] [place], [place] [address]Dr. Airam Tripathi Neutrophils/100 WBC (Bld) 82.1 % Critically high 43.0-75.0 The [facility] Comment on above: Performed By: #### C BC ####[facility] Dzglshoifm[address] [place], [place] [address]Dr. Airam Tripathi Platelet mean volume (Bld) [Entitic vol] 8.9 fL Critically low 9.5-13.5 The [facility] Comment on above: Performed By: #### C BC ####[facility] Ehgehwqwau7128 [place] [phone]. Airam Tripathi PLT 290 103/ul Normal 150-450 The [facility] Comment on above: Performed By: #### C BC ####[facility] Arzvcgtquy3384 [place] [phone]. Airam Tripathi RBC 3.51 106/ul Critically low 4.20-5.40 The [facility] Comment on above: Performed By: #### C BC ####[facility] Ylxvxlezgn6142 [place] [address]Dr. Airam Tripathi WBC 8.9 103/ul Normal 4.0-11.0 [facility] Comment on above: Performed By: #### C BC ####[facility] Upkrfdiphj95[address] [place], [place] [address]Dr. Airam Tripathi PROF 14(COMP METB)on 023 Albumin [Mass/Vol] 3.2 g/dL Critically low 3.4-5.0 [facility] Comment on above: Performed By: #### C MP ####[facility] Chojyvhjit4616[address] [place], [place] [address]Dr. Airam Tripathi Albumin/Globulin [Mass ratio] 0.9 {ratio} Normal [facility] Comment on above: Performed By: #### C MP ####[facility] Xdtvobcwjg[address] [place], [place] [address]Dr. Airam Tripathi ALP [Catalytic activity/Vol] 194 U/L Critically high 46-116 [facility] Comment on above: Performed By: #### C MP ####[facility] Ngvhkajwuc[address] [place], [place] [address]Dr. Airam Tripathi ALT [Catalytic activity/Vol] 19 U/L Normal 14-59 [facility] Comment on above: Performed By: #### C MP ####[facility] Cflpzsaqdb[address] [place], [place] [address]Dr. Airam Tripathi Anion gap [Moles/Vol] 11.3 mmol/L Normal [facility] Comment on above: Performed By: #### C MP ####[facility] Ijhkbmpflz2264[address] [place], [place] [address]Dr. Airam Tripathi AST [Catalytic activity/Vol] 24 U/L Normal 15-37 [facility] Comment on above: Performed By: #### C MP ####[facility] Ggvrbuosdd9[address] [place], [place] [address]Dr. Airam Tripathi Bilirubin [Mass/Vol] 0.2 mg/dL Normal 0.2-1.0 [facility] Comment on above: Performed By: #### C MP ####[facility] Tgcvpttens0733 [place] [phone]. Airam Tripathi Calcium [Mass/Vol] 8.7 mg/dL Normal 8.5-10.1 [facility] [facility] Comment on above: Performed By: #### C MP ####[facility] Jkpacedliv6742 [place] [phone]. Airam Tripathi Chloride [Moles/Vol] 101 mmol/L Normal 98-107 [facility] Comment on above: Performed By: #### C MP ####[facility] Qjkpeokqzu3457 [place] [phone]. Airam Tripathi CO2 [Moles/Vol] 27.2 mmol/L Normal 21.0-32.0 [facility] Comment on above: Performed By: #### C MP ####[facility] Nkhjzadkcw6[address] [place] [address]Dr. Airam Tripathi Creatinine [Mass/Vol] 1.17 mg/dL Critically high 0.55-1.02 [facility] Comment on above: Performed By: #### C MP ####[facility] Yhnvmdobrr5439 [place] [phone]. Airam Tripathi EGFR-AF QATARI 57 mL/min/1.73m2 Critically low >=60 [facility] Comment on above: Performed By: #### C MP ####[facility] Dmxamcwkhg2486 [place] [phone]. Airam Tripathi EGFR-NON AF QATARI 47 mL/min/1.73m2 Critically low >=60 [facility] Comment on above: Performed By: #### C MP ####[facility] Ipfrniaybs5178 [place] [phone]. Airam Tripathi Globulin (S) [Mass/Vol] 3.5 g/dL Normal [facility] Comment on above: Performed By: #### C MP ####[facility] Mecfscojsx8714 [place] [phone]. Airam Deuce Glucose [Mass/Vol] 86 mg/dL Normal 74-106 [facility] Comment on above: Performed By: #### C MP ####[facility] Jvxhghyymq4055 [place] [address]Dr. Airam Tripathi Potassium [Moles/Vol] 5.5 mmol/L Critically high 3.5-5.1 [facility] Comment on above: Performed By: #### C MP ####[facility] Ccckqbwfda[address] [place], [place] [address]Dr. Airam Tripathi Protein [Mass/Vol] 6.7 g/dL Normal 6.4-8.2 [facility] Comment on above: Performed By: #### C MP ####[facility] Botqiegpra8460[address] [place], [place] [address]Dr. Airam Tripathi Sodium [Moles/Vol] 134 mmol/L Critically low 136-145 Th [facility] Comment on above: Performed By: #### C MP ####[facility] Wfimxtckzu28[address] [place], [place] [address]Dr. Airam Tripathi Urea nitrogen [Mass/Vol] 26.0 mg/dL Critically high 7.0-18.0 [facility] Comment on above: Performed By: #### C MP ####[facility] Vggpfmbrqr70[address] [place], [place] [address]Dr. Airam Tripathi Urea nitrogen/Creatinine [Mass ratio] 22.2 mg/mg Normal [facility] Comment on above: Performed By: #### C MP ####[facility] Rdocyjutlt605347 [address] [place], [place] [address]Dr. Airam Tripathi OSMOLALITYon 07-08-2022 Osmolality [Osmolality] 273 mosm/kg Critically low 275-295 [facility] Comment on above: Performed By: #### O SMO ####[facility] Irhdkkeotq39[address] [place], [place] [address]Dr. Airam Tripathi CBC AUTO DIFFon 07-07-2022 BASO # 0.0 103/ul Normal 0.0-0.1 [facility] Comment on above: Performed By: #### C BC ####[facility] Ozqyijsite958347 [address] [place], [place] [address]Dr. Airam Tripathi Basophils/100 WBC (Bld) 0.4 % Normal 0.2-2.0 [facility] Comment on above: Performed By: #### C BC ####[facility] Qkkohbhvnl0077 [place] [phone]. Airam Tripathi EO # 0.1 103/ul Normal 0.0-0.7 [facility] Comment on above: Performed By: #### C BC ####[facility] Jvqhstteqp9751 [place] [address]Dr. Airam Tripathi Eosinophils/100 WBC (Bld) 1.6 % Normal 0.9-7.0 The [facility] Comment on above: Performed By: #### C BC ####[facility] Smstxhibzi8520[address] [place], [place] [address]Dr. Airam Tripathi Erythrocyte distribution width (RBC) [Ratio] 13.1 % Normal 11.0-15.0 [facility] Comment on above: Performed By: #### C BC ####[facility] Cgfritnakr694[address] [place], [place] [address]Dr. Airam Tripathi Hematocrit (Bld) [Volume fraction] 33.7 % Critically low 36.0-48.0 [facility] Comment on above: Performed By: #### C BC ####[facility] Lhvowxuaak78[address] [place], [place] [address]Dr. Airam Tripathi Hemoglobin (Bld) [Mass/Vol] 9.9 g/dL Critically low 12.0-16.0 [facility] Comment on above: Performed By: #### C BC ####[facility] Mqqfwgfhoz505[address] [place], [place] [address]Dr. Airam Tripathi IG # 0.05 10e3/ul Critically high 0.00-0.03 The [facility] Comment on above: Performed By: #### C BC ####[facility] Mzdcpjdcqx4947[address] [place], [place] [address]Dr. Airam Tripathi IG % 0.6 % Critically high 0.0-0.5 The [facility] Comment on above: Performed By: #### C BC ####[facility] Ckmzpmebep198[address] [place], [place] [address]Dr. Airam Tripathi LYMPH # 1.2 103/ul Normal 1.2-3.8 The [facility] Comment on above: Performed By: #### C BC ####[facility] Jsxynxdyoq3678 [place] [phone]. Airam Tripathi Lymphocytes/100 WBC (Bld) 15.5 % Critically low 20.5-60.0 [facility] Comment on above: Performed By: #### C BC ####[facility] Saappdlnuc8[address] [place] [address]Dr. Airam Tripathi MANUAL DIFF REQ NO Normal [facility] Comment on above: Performed By: #### C BC ####[facility] Zxpuecgjtl0253 [place] [address]Dr. Airam Deuce MCH (RBC) [Entitic mass] 28.7 pg Normal 26.7-34.0 [facility] Comment on above: Performed By: #### C BC ####[facility] Tahpcdixyj0978[address] [place], [place] [address]Dr. Airam Deuce MCHC (RBC) [Mass/Vol] 29.4 g/dL Critically low 29.9-35.2 The [facility] Comment on above: Performed By: #### C BC ####[facility] Jphnmmkhmf2534[address] [place], [place] [address]Dr. Selenaneil Tripathi MCV (RBC) [Entitic vol] 97.7 fL Normal 81.0-99.0 The [facility] Comment on above: Performed By: #### C BC ####[facility] Nacyzoeanc24[address] [place], [place] [address]Dr. Airam Tripathi MONO # 0.6 103/ul Normal 0.3-0.8 The [facility] Comment on above: Performed By: #### C BC ####[facility] Npbvyfpfsu5235[address] [place], [place] [address]Dr. Selenaneil Tripathi Monocytes/100 WBC (Bld) 7.7 % Normal 1.7-12.0 [facility] Comment on above: Performed By: #### C BC ####[facility] Dlacqilfvm2137[address] [place], [place] [address]Dr. Airam Tripathi NEUT # 5.9 103/ul Normal 1.4-6.5 The [facility] Comment on above: Performed By: #### C BC ####[facility] Rxukbgfdgu9980 [place] [phone]. Airam Deuce Neutrophils/100 WBC (Bld) 74.2 % Normal 43.0-75.0 [facility] Comment on above: Performed By: #### C BC ####[facility] Fkjwoozpkt5855 [place] [phone]. Airam Tripathi Platelet mean volume (Bld) [Entitic vol] 9.4 fL Critically low 9.5-13.5 [facility] Comment on above: Performed By: #### C BC ####[facility] Tuyfoqngbp2928 [place] [address]Dr. Airam Tripathi PLT 331 103/ul Normal 150-450 The [facility] Comment on above: Performed By: #### C BC ####[facility] Rzozyhpaab3464 [place] [address]Dr. Airam Tripathi RBC 3.45 106/ul Critically low 4.20-5.40 The [facility] Comment on above: Performed By: #### C BC ####[facility] Yaubkcszoc9940 [place] [address]Dr. Airam Tripathi WBC 7.9 103/ul Normal 4.0-11.0 The [facility] Comment on above: Performed By: #### C BC ####[facility] Ahdkibgroo4855 [place] [address]Dr. Airam Tripathi PROF 14(COMP METB)on 023 Albumin [Mass/Vol] 3.4 g/dL Normal 3.4-5.0 [facility] Comment on above: Performed By: #### C MP ####[facility] Wqyilwkawf8404 [place] [address]Dr. Airam Tripathi Albumin/Globulin [Mass ratio] 1.1 {ratio} Normal [facility] Comment on above: Performed By: #### C MP ####[facility] Qcayvfmvli6368 [place] [address]Dr. Airam Tripathi ALP [Catalytic activity/Vol] 197 U/L Critically high 46-116 The [facility] Comment on above: Performed By: #### C MP ####[facility] Struuuuccd3589 [place] [phone]. Airam Tripathi ALT [Catalytic activity/Vol] 18 U/L Normal 14-59 The [facility] Comment on above: Performed By: #### C MP ####[facility] Ohkjvbkyjd1899 [place] [phone]. Airam Tripathi Anion gap [Moles/Vol] 12.3 mmol/L Normal Th [facility] Comment on above: Performed By: #### C MP ####[facility] Rauucfdutb5806 [place] [phone]. Airam Tripathi AST [Catalytic activity/Vol] 26 U/L Normal 15-37 [facility] Comment on above: Performed By: #### C MP ####[facility] Qjmlwsmdfc028[address] [place], [place] [address]Dr. Airam Tripathi Bilirubin [Mass/Vol] 0.3 mg/dL Normal 0.2-1.0 [facility] Comment on above: Performed By: #### C MP ####[facility] Fqywibosyr[address] [place], [place] [address]Dr. Airam Tripathi Calcium [Mass/Vol] 8.6 mg/dL Normal 8.5-10.1 [facility] Comment on above: Performed By: #### C MP ####[facility] Csuwyktoaa14[address] [place], [place] [address]Dr. Airam Tripathi Chloride [Moles/Vol] 96 mmol/L Critically low 98-107 The [facility] Comment on above: Performed By: #### C MP ####[facility] Vhwicwllno[address] [place], [place] [address]Dr. Airam Tripathi CO2 [Moles/Vol] 27.8 mmol/L Normal 21.0-32.0 The [facility] Comment on above: Performed By: #### C MP ####[facility] Typtfqpuze6[address] [place], [place] [address]Dr. Airam Tripathi Creatinine [Mass/Vol] 1.55 mg/dL Critically high 0.55-1.02 [facility] Comment on above: Performed By: #### C MP ####[facility] Mkjuoabnko7446 [place] [phone]. Airam Tripathi EGFR-AF QATARI 41 mL/min/1.73m2 Critically low >=60 [facility] Comment on above: Performed By: #### C MP ####[facility] Xixramqzbe2930 [place] [phone]. Airam Tripathi EGFR-NON AF QATARI 34 mL/min/1.73m2 Critically low >=60 [facility] Comment on above: Performed By: #### C MP ####[facility] Zpjzkkkdry0667 [place] [address]Dr. Airam Tripathi Globulin (S) [Mass/Vol] 3.2 g/dL Normal [facility] Comment on above: Performed By: #### C MP ####[facility] Hbubotggbz0231 [place] [address]Dr. Airam Tripathi Glucose [Mass/Vol] 87 mg/dL Normal 74-106 [facility] Comment on above: Performed By: #### C MP ####[facility] Joanahdcoe7013 [place] [address]Dr. Airam Tripathi Potassium [Moles/Vol] 5.1 mmol/L Normal 3.5-5.1 [facility] Comment on above: Performed By: #### C MP ####[facility] Xsdmlmrqnt2257 [place] [address]Dr. Airam Tripathi Protein [Mass/Vol] 6.6 g/dL Normal 6.4-8.2 The [facility] Comment on above: Performed By: #### C MP ####[facility] Kyddzfxaex0990 [place] [address]Dr. Airam Tripathi Sodium [Moles/Vol] 131 mmol/L Critically low 136-145 Th [facility] Comment on above: Performed By: #### C MP ####[facility] Faoawazgnz3225 [place] [address]Dr. Airam Tripathi Urea nitrogen [Mass/Vol] 31.0 mg/dL Critically high 7.0-18.0 [facility] Comment on above: Performed By: #### C MP ####[facility] Iseykxnehc8271 [place] [phone]. Airam Tripathi Urea nitrogen/Creatinine [Mass ratio] 20.0 mg/mg Normal [facility] Comment on above: Performed By: #### C MP ####[facility] Cnarvnywqo90[address] [place], [place] [address]Dr. Airam Tripathi OSMOLALITYon 07-02-2022 Osmolality [Osmolality] 281 mosm/kg Normal 275-295 The [facility] Comment on above: Performed By: #### O SMO ####[facility] Lggvpkeydy4327[address] [place], [place] [address]Dr. Aiarm Deuce CBC AUTO DIFFon 06-29-2022 BASO # 0.0 103/ul Normal 0.0-0.1 [facility] Comment on above: Performed By: #### C BC ####[facility] Nwlughcfsc026[address] [place], [place] [address]Dr. Airam Tripathi Basophils/100 WBC (Bld) 0.3 % Normal 0.2-2.0 The [facility] Comment on above: Performed By: #### C BC ####[facility] Bsgbzqemsg6320[address] [place], [place] [address]Dr. Selenaneil Tripathi EO # 0.2 103/ul Normal 0.0-0.7 [facility] Comment on above: Performed By: #### C BC ####[facility] Skfcaekvay[address] [place], [place] [address]Dr. Airam Tripathi Eosinophils/100 WBC (Bld) 2.3 % Normal 0.9-7.0 The [facility] Comment on above: Performed By: #### C BC ####[facility] Cgcypbekqu22224[address] [place], [place] [address]Dr. Airam Tripathi Erythrocyte distribution width (RBC) [Ratio] 13.2 % Normal 11.0-15.0 The [facility] Comment on above: Performed By: #### C BC ####[facility] Linqihaian780[address] [place], [place] [address]Dr. Airam Tripathi Hematocrit (Bld) [Volume fraction] 28.2 % Critically low 36.0-48.0 The [facility] Comment on above: Performed By: #### C BC ####[facility] Cxzneqwamr2349 [place] [address]Dr. Airam Tripathi Hemoglobin (Bld) [Mass/Vol] 9.1 g/dL Critically low 12.0-16.0 [facility] Comment on above: Performed By: #### C BC ####[facility] Qzyjimavid6669 [place] [address]Dr. Airam Tripathi IG # 0.03 10e3/ul Normal 0.00-0.03 [facility] Comment on above: Performed By: #### C BC ####[facility] Anntxuscje3640[address] [place], [place] [address]Dr. Airam Tripathi IG % 0.4 % Normal 0.0-0.5 [facility] Comment on above: Performed By: #### C BC ####[facility] Kjgotcaofi927[address] [place], [place] [address]Dr. Airam Tripathi LYMPH # 1.0 103/ul Critically low 1.2-3.8 [facility] Comment on above: Performed By: #### C BC ####[facility] Gwltftewza1815[address] [place], [place] [address]Dr. Airam Tripathi Lymphocytes/100 WBC (Bld) 12.8 % Critically low 20.5-60.0 [facility] Comment on above: Performed By: #### C BC ####[facility] Hwrbdxptoh198[address] [place], [place] [address]Dr. Airam Tripathi MANUAL DIFF REQ NO Normal [facility] Comment on above: Performed By: #### C BC ####[facility] Yzeuljxccg193[address] [place], [place] [address]Dr. Airam Tripathi MCH (RBC) [Entitic mass] 29.9 pg Normal 26.7-34.0 The [facility] Comment on above: Performed By: #### C BC ####[facility] Knsnkssnsg86[address] [place], [place] [address]Dr. Airam Tripathi MCHC (RBC) [Mass/Vol] 32.3 g/dL Normal 29.9-35.2 The [facility] Comment on above: Performed By: #### C BC ####[facility] Wstwyrflcq6638 [place] [phone]. Airam Tripathi MCV (RBC) [Entitic vol] 92.8 fL Normal 81.0-99.0 The [facility] Comment on above: Performed By: #### C BC ####[facility] Qfsvbtpnzw9439 [place] [phone]. Airam Tripathi MONO # 0.5 103/ul Normal 0.3-0.8 The [facility] Comment on above: Performed By: #### C BC ####[facility] Affudmopml7258 [place] [phone]. Airam Deuce Monocytes/100 WBC (Bld) 6.0 % Normal 1.7-12.0 The [facility] Comment on above: Performed By: #### C BC ####[facility] Chnsdfdban9[address] [place], [place] [address]Dr. Airam Tripathi NEUT # 6.0 103/ul Normal 1.4-6.5 The [facility] Comment on above: Performed By: #### C BC ####[facility] Ovglfchghc1497 [place] [phone]. Selenaneil Tripathi Neutrophils/100 WBC (Bld) 78.2 % Critically high 43.0-75.0 The [facility] Comment on above: Performed By: #### C BC ####[facility] Wqixirycgb3919[address] [place], [place] [address]Dr. Airam Tripathi Platelet mean volume (Bld) [Entitic vol] 9.0 fL Critically low 9.5-13.5 The [facility] Comment on above: Performed By: #### C BC ####[facility] Ztpputvhij9988 [place] [phone]. Airam Tripathi PLT 332 103/ul Normal 150-450 The [facility] Comment on above: Performed By: #### C BC ####[facility] Mjjalxuusj3212 [place] [phone]. Airam Tripathi RBC 3.04 106/ul Critically low 4.20-5.40 The [facility] Comment on above: Performed By: #### C BC ####[facility] Kauolpfvot5040 [place] [address]Dr. Airam Tripathi WBC 7.7 103/ul Normal 4.0-11.0 [facility] Comment on above: Performed By: #### C BC ####[facility] Brlfkxkbft3184 [place] [address]Dr. Airam Tripathi PROF 14(COMP METB)on 023 Albumin [Mass/Vol] 3.2 g/dL Critically low 3.4-5.0 Th e [facility] Comment on above: Performed By: #### C MP ####[facility] Wjibszpcdw504[address] [place], [place] [address]Dr. Airam Tripathi Albumin/Globulin [Mass ratio] 0.9 {ratio} Normal [facility] Comment on above: Performed By: #### C MP ####[facility] Dzkgpmdwhg588[address] [place], [place] [address]Dr. Airam Tripathi ALP [Catalytic activity/Vol] 135 U/L Critically high 46-116 [facility] Comment on above: Performed By: #### C MP ####[facility] Ludalysaxr8395[address] [place], [place] [address]Dr. Airam Tripathi ALT [Catalytic activity/Vol] 25 U/L Normal 14-59 [facility] Comment on above: Performed By: #### C MP ####[facility] Wxymmwuxvr833[address] [place], [place] [address]Dr. Airam Tripathi Anion gap [Moles/Vol] 9.1 mmol/L Normal [facility] Comment on above: Performed By: #### C MP ####[facility] Pssrhgahmm2009[address] [place], [place] [address]Dr. Airam Tripathi AST [Catalytic activity/Vol] 34 U/L Normal 15-37 [facility] Comment on above: Performed By: #### C MP ####[facility] Ehvqpwvxha8389[address] [place], [place] [address]Dr. Airam Tripathi Bilirubin [Mass/Vol] 0.3 mg/dL Normal 0.2-1.0 [facility] Comment on above: Performed By: #### C MP ####[facility] Mrmkamebwh7651 [place] [address]Dr. Airam Tripathi Calcium [Mass/Vol] 8.6 mg/dL Normal 8.5-10.1 The [facility] Comment on above: Performed By: #### C MP ####[facility] Areylqytwf5775 [place] [address]Dr. Airam Tripathi Chloride [Moles/Vol] 99 mmol/L Normal 98-107 The [facility] Comment on above: Performed By: #### C MP ####[facility] Jdsiotevnz3047 [place] [address]Dr. Airam Tripathi CO2 [Moles/Vol] 29.1 mmol/L Normal 21.0-32.0 The [facility] Comment on above: Performed By: #### C MP ####[facility] Vdsxilctbu1911[address] [place], [place] [address]Dr. Airam Tripathi Creatinine [Mass/Vol] 1.40 mg/dL Critically high 0.55-1.02 The [facility] Comment on above: Performed By: #### C MP ####[facility] Lzrlumwdiy8468[address] [place], [place] [address]Dr. Airam Tripathi EGFR-AF QATARI 46 mL/min/1.73m2 Critically low >=60 The [facility] Comment on above: Performed By: #### C MP ####[facility] Snxlmxyotx9069[address] [place], [place] [address]Dr. Airam Tripathi EGFR-NON AF QATARI 38 mL/min/1.73m2 Critically low >=60 The [facility] Comment on above: Performed By: #### C MP ####[facility] Vopbemwhtu149[address] [place], [place] [address]Dr. Airam Tripathi Globulin (S) [Mass/Vol] 3.4 g/dL Normal The [facility] Comment on above: Performed By: #### C MP ####[facility] Cvokzowsaz844[address] [place], [place] [address]Dr. Airam Tripathi Glucose [Mass/Vol] 83 mg/dL Normal 74-106 The [facility] Comment on above: Performed By: #### C MP ####[facility] Jzjqhaxdjv436[address] [place], [place] [address]Dr. Airam Tripathi Potassium [Moles/Vol] 4.2 mmol/L Normal 3.5-5.1 The [facility] Comment on above: Performed By: #### C MP ####[facility] Apxdlkkvrm317[address] [place], [place] [address]Dr. Airam Tripathi Protein [Mass/Vol] 6.6 g/dL Normal 6.4-8.2 The [facility] Comment on above: Performed By: #### C MP ####[facility] Psskkpewnl345[address] [place], [place] [address]Dr. Airam Tripathi Sodium [Moles/Vol] 133 mmol/L Critically low 136-145 Th [facility] Comment on above: Performed By: #### C MP ####[facility] Ajjpmojiyt604[address] [place], [place] [address]Dr. Airam Deuce Urea nitrogen [Mass/Vol] 37.0 mg/dL Critically high 7.0-18.0 [facility] Comment on above: Performed By: #### C MP ####[facility] Ybbvazbebz174[address] [place], [place] [address]Dr. Airam Tripathi Urea nitrogen/Creatinine [Mass ratio] 26.4 mg/mg Normal [facility] Comment on above: Performed By: #### C MP ####[facility] Qsrbmwwlys7945[address] [place], [place] [address]Dr. Airam Tripathi BNPon 06-18-2022 Natriuretic peptide B (Bld) [Mass/Vol] 5826.0 pg/mL Critically high <=900.0 [facility] Comment on above: Performed By: #### B SURFBOARD MAKER, CMP ####[facility] Enmjushajd2400[address] [place], [place] [address]Dr. Airam Deuce CBC AUTO DIFFon 06-18-2022 BASO # 0.0 103/ul Normal 0.0-0.1 [facility] Comment on above: Performed By: #### C BC ####[facility] Llqsgeynqp4632[address] [place], [place] [address]Dr. Airam Deuce Basophils/100 WBC (Bld) 0.4 % Normal 0.2-2.0 The [facility] Comment on above: Performed By: #### C BC ####[facility] Szvonlfphp673[address] [place], [place] [address]DrKianna Tripathi EO # 0.1 103/ul Normal 0.0-0.7 The [facility] Comment on above: Performed By: #### C BC ####[facility] Wbzudvwfcn01[address] [place], [place] [address]DrKianna Tripathi Eosinophils/100 WBC (Bld) 1.3 % Normal 0.9-7.0 The [facility] Comment on above: Performed By: #### C BC ####[facility] Kiapfabvgm4025[address] [place], [place] [address]Dr. Airam Tripathi Erythrocyte distribution width (RBC) [Ratio] 13.4 % Normal 11.0-15.0 The [facility] Comment on above: Performed By: #### C BC ####[facility] Cydfxzwylw[address] [place], [place] [address]Dr. Airam Tripathi Hematocrit (Bld) [Volume fraction] 27.3 % Critically low 36.0-48.0 [facility] Comment on above: Performed By: #### C BC ####[facility] Loqxgwanxk84[address] [place], [place] [address]Dr. Airam Tripathi Hemoglobin (Bld) [Mass/Vol] 8.6 g/dL Critically low 12.0-16.0 The [facility] Comment on above: Performed By: #### C BC ####[facility] Deghenbqty[address] [place], [place] [address]DrKianna Tripathi IG # 0.08 10e3/ul Critically high 0.00-0.03 The [facility] Comment on above: Performed By: #### C BC ####[facility] Ysjdwebdut[address] [place], [place] [address]DrKianna Tripathi IG % 0.8 % Critically high 0.0-0.5 [facility] Comment on above: Performed By: #### C BC ####[facility] Hngkgakjxa[address] [place], [place] [address]DrKianna Tripathi LYMPH # 1.9 103/ul Normal 1.2-3.8 [facility] Comment on above: Performed By: #### C BC ####[facility] Pvuowwbhsb[address] [place] [address]DrKianna Tripathi Lymphocytes/100 WBC (Bld) 19.3 % Critically low 20.5-60.0 [facility] Comment on above: Performed By: #### C BC ####[facility] Yrgvvjayek2249[address] [place], [place] [address]DrKianna Tripathi MANUAL DIFF REQ NO Normal [facility] Comment on above: Performed By: #### C BC ####[facility] Qhykvbmcgo5865 [place] [address]DrKianna Tripathi MCH (RBC) [Entitic mass] 29.6 pg Normal 26.7-34.0 [facility] Comment on above: Performed By: #### C BC ####[facility] Npmjwmhbkk13[address] [place], [place] [address]DrKianna Tripathi MCHC (RBC) [Mass/Vol] 31.5 g/dL Normal 29.9-35.2 [facility] Comment on above: Performed By: #### C BC ####[facility] Jhqzxxenru10[address] [place], [place] [address]DrKianna Tripathi MCV (RBC) [Entitic vol] 93.8 fL Normal 81.0-99.0 [facility] Comment on above: Performed By: #### C BC ####[facility] Xhqihiuadl38[address] [place], [place] [address]DrKianna Tripathi MONO # 0.6 103/ul Normal 0.3-0.8 [facility] Comment on above: Performed By: #### C BC ####[facility] Jrfjujwpdo921047 [address] [place], [place] [address]DrKianna Tripathi Monocytes/100 WBC (Bld) 6.5 % Normal 1.7-12.0 [facility] Comment on above: Performed By: #### C BC ####[facility] Smglgbmswt4615[address] [place], [place] [address]DrKianna Tripathi NEUT # 6.9 103/ul Critically high 1.4-6.5 [facility] Comment on above: Performed By: #### C BC ####[facility] Qkra[address]jbvk[address] [place] [id number] Airam Deuce Neutrophils/100 WBC (Bld) 71.7 % Normal 43.0-75.0 [facility] Comment on above: Performed By: #### C BC ####[facility] Zjeqtjiurs5214 [place] [address]DrKianna Tripathi Platelet mean volume (Bld) [Entitic vol] 8.5 fL Critically low 9.5-13.5 [facility] Comment on above: Performed By: #### C BC ####[facility] Rkxhoixxvt4166 [place] [address]DrKianna Tripathi PLT 295 103/ul Normal 150-450 [facility] Comment on above: Performed By: #### C BC ####[facility] Boyrlsutgj474[address] [place], [place] [address]DrKianna Tripathi RBC 2.91 106/ul Critically low 4.20-5.40 [facility] Comment on above: Performed By: #### C BC ####[facility] Gxabeiibha7416[address] [place], [place] [address]DrKianna Waltersneil Deuce WBC 9.7 103/ul Normal 4.0-11.0 [facility] Comment on above: Performed By: #### C BC ####[facility] Qantulkpbh842447 [address] [place], [place] [address]DrKianna Tripathi PROF 14(COMP METB)on 022 Albumin [Mass/Vol] 2.8 g/dL Critically low 3.4-5.0 [facility] Comment on above: Performed By: #### B SURFBOARD MAKER, CMP ####[facility] Umjcvpykat675[address] [place], [place] [address]DrKianna Tripathi Albumin/Globulin [Mass ratio] 0.9 {ratio} Normal [facility] Comment on above: Performed By: #### B SURFBOARD MAKER, CMP ####[facility] Oliqqbhmax2337[address] [place], [place] [address]Dr. Airam Tripathi ALP [Catalytic activity/Vol] 125 U/L Critically high 46-116 [facility] Comment on above: Performed By: #### B SURFBOARD MAKER, CMP ####[facility] Irfnyturtd239347 [address] [place], [place] [address]Dr. Airam Tripathi ALT [Catalytic activity/Vol] 16 U/L Normal 14-59 [facility] Comment on above: Performed By: #### B SURFBOARD MAKER, CMP ####[facility] Afeabvexat2068[address] [place], [place] [address]Dr. Airam Tripathi Anion gap [Moles/Vol] 11.4 mmol/L Normal [facility] Comment on above: Performed By: #### B SURFBOARD MAKER, CMP ####[facility] Gafxybszwx558747 [address] [place], [place] [address]Dr. Airam Tripathi AST [Catalytic activity/Vol] 23 U/L Normal 15-37 [facility] Comment on above: Performed By: #### B SURFBOARD MAKER, CMP ####[facility] Wwxriiksbd784747 [address] [place], [place] [address]Dr. Airam Tripathi Bilirubin [Mass/Vol] 0.2 mg/dL Normal 0.2-1.0 [facility] Comment on above: Performed By: #### B SURFBOARD MAKER, CMP ####[facility] Twjqiirxro323647 [address] [place], [place] [address]Dr. Airam Tripathi Calcium [Mass/Vol] 8.1 mg/dL Critically low 8.5-10.1 [facility] Comment on above: Performed By: #### B SURFBOARD MAKER, CMP ####[facility] Rrpngpioyi1179[address] [place], [place] [address]Dr. Airam Tripathi Chloride [Moles/Vol] 96 mmol/L Critically low 98-107 [facility] Comment on above: Performed By: #### B SURFBOARD MAKER, CMP ####[facility] Usmkljbsix226[address] [place], [place] [address]Dr. Airam Tripathi CO2 [Moles/Vol] 26.6 mmol/L Normal 21.0-32.0 [facility] Comment on above: Performed By: #### B SURFBOARD MAKER, CMP ####[facility] Meufxjgwkf3008 [place] [id number]. Airam Tripathi Creatinine [Mass/Vol] 1.31 mg/dL Critically high 0.55-1.02 [facility] Comment on above: Performed By: #### B SURFBOARD MAKER, CMP ####[facility] Tdnhmhslud[address] [place], [place] [address]Dr. Airam Tripathi EGFR-AF QATARI 50 mL/min/1.73m2 Critically low >=60 [facility] Comment on above: Performed By: #### B SURFBOARD MAKER, CMP ####[facility] Fgyzxhsnhs9999[address] [place], [place] [address]Dr. Airam Tripathi EGFR-NON AF QATARI 41 mL/min/1.73m2 Critically low >=60 [facility] Comment on above: Performed By: #### B SURFBOARD MAKER, CMP ####[facility] Viphwxwvmd0598[address] [place], [place] [address]Dr. Airam Tripathi Globulin (S) [Mass/Vol] 3.0 g/dL Normal [facility] Comment on above: Performed By: #### B SURFBOARD MAKER, CMP ####[facility] Rezkhxaygj3787[address] [place], [place] [address]Dr. Airam Tripathi Glucose [Mass/Vol] 82 mg/dL Normal 74-106 [facility] Comment on above: Performed By: #### B SURFBOARD MAKER, CMP ####[facility] Xxmcwluicf7187[address] [place], [place] [address]Dr. Airam Tripathi Potassium [Moles/Vol] 4.0 mmol/L Normal 3.5-5.1 [facility] Comment on above: Performed By: #### B SURFBOARD MAKER, CMP ####[facility] Bhpbwcjlrt1314[address] [place], [place] [address]Dr. Airam Tripathi Protein [Mass/Vol] 5.8 g/dL Critically low 6.4-8.2 Th [facility] Comment on above: Performed By: #### B SURFBOARD MAKER, CMP ####[facility] Imeugooait50264[address] [place], [place] [address]Dr. Airam Tripathi Sodium [Moles/Vol] 130 mmol/L Critically low 136-145 Th [facility] Comment on above: Performed By: #### B SURFBOARD MAKER, CMP ####[facility] Niaplgvzlo757[address] [place], [place] [address]Dr. Airam Tripathi Urea nitrogen [Mass/Vol] 19.0 mg/dL Critically high 7.0-18.0 [facility] Comment on above: Performed By: #### B SURFBOARD MAKER, CMP ####[facility] Grikbpcrgq607747 [address] [place], [place] [address]Dr. Airam Deuce Urea nitrogen/Creatinine [Mass ratio] 14.5 mg/mg Normal [facility] Comment on above: Performed By: #### B SURFBOARD MAKER, CMP ####[facility] Floturmmgc091647 [address] [place], [place] [address]Dr. Airam Deuce BNPon 06-17-2022 Natriuretic peptide B (Bld) [Mass/Vol] 2510.0 pg/mL Critically high <=900.0 [facility] Comment on above: Performed By: #### B SURFBOARD MAKER, CMP ####[facility] Tgdbtltlld723047 [address] [place], [place] [address]Dr. Airam Deuce CBC AUTO DIFFon 06-17-2022 BASO # 0.0 103/ul Normal 0.0-0.1 [facility] Comment on above: Performed By: #### C BC ####[facility] Wrviywlnil513[address] [place], [place] [address]Dr. Airam Tripathi Basophils/100 WBC (Bld) 0.4 % Normal 0.2-2.0 [facility] Comment on above: Performed By: #### C BC ####[facility] Pggpshvnkf487[address] [place], [place] [address]Dr. Selenaneil Deuce EO # 0.0 103/ul Normal 0.0-0.7 [facility] Comment on above: Performed By: #### C BC ####[facility] Ultvsphoml883347 [address] [place], [place] [address]Dr. Airam Tripathi Eosinophils/100 WBC (Bld) 0.3 % Critically low 0.9-7.0 [facility] Comment on above: Performed By: #### C BC ####[facility] Vuyeigaosn650347 [address] [place], [place] [address]Dr. Airam Tripathi Erythrocyte distribution width (RBC) [Ratio] 13.6 % Normal 11.0-15.0 [facility] Comment on above: Performed By: #### C BC ####[facility] Ovnpocatar[address] [place] [address]Dr. Airam Tripathi Hematocrit (Bld) [Volume fraction] 28.9 % Critically low 36.0-48.0 [facility] Comment on above: Performed By: #### C BC ####[facility] Fpoacmrexd162947 [address] [place], [place] [address]Dr. Airam Tripathi Hemoglobin (Bld) [Mass/Vol] 8.9 g/dL Critically low 12.0-16.0 [facility] Comment on above: Performed By: #### C BC ####[facility] Mjbybmhqvm548747 [address] [place], [place] [address]Dr. Airam Tripathi IG # 0.10 10e3/ul Critically high 0.00-0.03 [facility] Comment on above: Performed By: #### C BC ####[facility] Rntrnrjrjg656247 [address] [place], [place] [address]Dr. Selenaneil Tripathi IG % 1.3 % Critically high 0.0-0.5 [facility] Comment on above: Performed By: #### C BC ####[facility] Qeszmizpeh584[address] [place], [place] [address]DrKianna Airam Deuce LYMPH # 0.7 103/ul Critically low 1.2-3.8 [facility] Comment on above: Performed By: #### C BC ####[facility] Tevcwblwes37034[address] [place], [place] [address]DrKianna Selenaneil Tripathi Lymphocytes/100 WBC (Bld) 8.1 % Critically low 20.5-60.0 [facility] Comment on above: Performed By: #### C BC ####[facility] Svynlitfqw658647 [address] [place], [place] [address]DrKianna Tripathi MANUAL DIFF REQ NO Normal [facility] Comment on above: Performed By: #### C BC ####[facility] Wgqsgtyxje264747 [address] [place], [place] [address]DrKianna Tripathi MCH (RBC) [Entitic mass] 29.4 pg Normal 26.7-34.0 [facility] Comment on above: Performed By: #### C BC ####[facility] Tfwuzcypgr7649 [place] [address]Dr. Airam Tripathi MCHC (RBC) [Mass/Vol] 30.8 g/dL Normal 29.9-35.2 [facility] Comment on above: Performed By: #### C BC ####[facility] Vpgmvelild206747 [address] [place], [place] [address]Dr. Airam Deuce MCV (RBC) [Entitic vol] 95.4 fL Normal 81.0-99.0 [facility] Comment on above: Performed By: #### C BC ####[facility] Kwvpydthxc069447 [address] [place], [place] [address]DrKianna Tripathi MONO # 0.3 103/ul Normal 0.3-0.8 [facility] Comment on above: Performed By: #### C BC ####[facility] Zipjohbpkv961947 [address] [place], [place] [address]Dr. Airam Tripathi Monocytes/100 WBC (Bld) 3.1 % Normal 1.7-12.0 [facility] Comment on above: Performed By: #### C BC ####[facility] Vpbxxbdgys941547 [address] [place], [place] [address]Dr. Airam Tripathi NEUT # 7.0 103/ul Critically high 1.4-6.5 [facility] Comment on above: Performed By: #### C BC ####[facility] Cpriwcqmlo836747 [address] [place], [place] [address]Dr. Airam Tripathi Neutrophils/100 WBC (Bld) 86.8 % Critically high 43.0-75.0 [facility] Comment on above: Performed By: #### C BC ####[facility] Wuuwctjpgh783347 [address] [place], [place] [address]DrKianna Selenaneil Tripathi Platelet mean volume (Bld) [Entitic vol] 8.3 fL Critically low 9.5-13.5 [facility] Comment on above: Performed By: #### C BC ####[facility] Jxrdgbpbej75[address] [place] [address]Dr. Airam Deuce PLT 279 103/ul Normal 150-450 [facility] Comment on above: Performed By: #### C BC ####[facility] Pvhassfivm8340 [place] [address]Dr. Airam Tripathi RBC 3.03 106/ul Critically low 4.20-5.40 [facility] Comment on above: Performed By: #### C BC ####[facility] Wrvywibtkt5725 [place] [address]Dr. Airam Deuce WBC 8.0 103/ul Normal 4.0-11.0 [facility] Comment on above: Performed By: #### C BC ####[facility] Jxteacntvx494747 [address] [place], [place] [address]Dr. Airam Tripathi PROF 14(COMP METB)on 06-17- 022 Albumin [Mass/Vol] 2.8 g/dL Critically low 3.4-5.0 [facility] Comment on above: Performed By: #### B SURFBOARD MAKER, CMP ####[facility] Gtezkghgfk2957[address] [place], [place] [address]Dr. Airam Tripathi Albumin/Globulin [Mass ratio] 0.9 {ratio} Normal [facility] Comment on above: Performed By: #### B SURFBOARD MAKER, CMP ####[facility] Ecjuqyhibj2355[address] [place], [place] [address]Dr. Airam Tripathi ALP [Catalytic activity/Vol] 136 U/L Critically high 46-116 [facility] Comment on above: Performed By: #### B SURFBOARD MAKER, CMP ####[facility] Xrabntmsqe060747 [address] [place], [place] [address]Dr. Airam Tripathi ALT [Catalytic activity/Vol] 17 U/L Normal 14-59 [facility] Comment on above: Performed By: #### B SURFBOARD MAKER, CMP ####[facility] Brcijgkhyx196547 [address] [place], [place] [address]Dr. Airam Tripathi Anion gap [Moles/Vol] 12.9 mmol/L Normal [facility] Comment on above: Performed By: #### B SURFBOARD MAKER, CMP ####[facility] Efbudrqvym016647 [address] [place], [place] [address]Dr. Airam Tripathi AST [Catalytic activity/Vol] 24 U/L Normal 15-37 [facility] Comment on above: Performed By: #### B SURFBOARD MAKER, CMP ####[facility] Aikobwwceq940747 [address] [place], [place] [address]Dr. Airam Tripathi Bilirubin [Mass/Vol] 0.2 mg/dL Normal 0.2-1.0 [facility] Comment on above: Performed By: #### B SURFBOARD MAKER, CMP ####[facility] Tynmlcjcfa108[address] [place], [place] [address]Dr. Airam Tripathi Calcium [Mass/Vol] 8.7 mg/dL Normal 8.5-10.1 [facility] Comment on above: Performed By: #### B SURFBOARD MAKER, CMP ####[facility] Jrvirmyyhq755147 [address] [place], [place] [address]Dr. Airam Tripathi Chloride [Moles/Vol] 102 mmol/L Normal 98-107 [facility] Comment on above: Performed By: #### B SURFBOARD MAKER, CMP ####[facility] Guowpfvtlc1579[address] [place], [place] [address]Dr. Airam Tripathi CO2 [Moles/Vol] 23.8 mmol/L Normal 21.0-32.0 [facility] Comment on above: Performed By: #### B SURFBOARD MAKER, CMP ####[facility] Xruaqltqwd457947 [address] [place], [place] [address]Dr. Airam Tripathi Creatinine [Mass/Vol] 1.08 mg/dL Critically high 0.55-1.02 [facility] Comment on above: Performed By: #### B SURFBOARD MAKER, CMP ####[facility] Xpysprhztc0735[address] [place], [place] [address]Dr. Airam Deuce EGFR-AF QATARI >60 Normal >=60 [facility] Comment on above: Performed By: #### B SURFBOARD MAKER, CMP ####[facility] Ffkpeewqdp9969[address] [place], [place] [address]Dr. Airam Deuce EGFR-NON AF QATARI 52 mL/min/1.73m2 Critically low >=60 [facility] Comment on above: Performed By: #### B SURFBOARD MAKER, CMP ####[facility] Mtbdpimksy4941 [place] [address]Dr. Airam Tripathi Globulin (S) [Mass/Vol] 3.2 g/dL Normal [facility] Comment on above: Performed By: #### B SURFBOARD MAKER, CMP ####[facility] Taobvjndbx511147 [address] [place], [place] [address]Dr. Airam Tripathi Glucose [Mass/Vol] 99 mg/dL Normal 74-106 [facility] Comment on above: Performed By: #### B SURFBOARD MAKER, CMP ####[facility] Dqjjdsweph736947 [address] [place], [place] [address]Dr. Airam Tripathi Potassium [Moles/Vol] 4.7 mmol/L Normal 3.5-5.1 [facility] Comment on above: Performed By: #### B SURFBOARD MAKER, CMP ####[facility] Hmebujddbw110[address] [place], [place] [address]Dr. Airam Tripathi Protein [Mass/Vol] 6.0 g/dL Critically low 6.4-8.2 [facility] Comment on above: Performed By: #### B SURFBOARD MAKER, CMP ####[facility] Scfentuxqq000[address] [place], [place] [address]Dr. Airam Tripathi Sodium [Moles/Vol] 134 mmol/L Critically low 136-145 [facility] Comment on above: Performed By: #### B SURFBOARD MAKER, CMP ####[facility] Fzzzqzrdgo633347 [address] [place], [place] [address]Dr. Airam Tripathi Urea nitrogen [Mass/Vol] 19.0 mg/dL Critically high 7.0-18.0 [facility] Comment on above: Performed By: #### B SURFBOARD MAKER, CMP ####[facility] Ntbuhbeffp046647 [address] [place], [place] [address]Dr. Airam Tripathi Urea nitrogen/Creatinine [Mass ratio] 17.6 mg/mg Normal [facility] Comment on above: Performed By: #### B SURFBOARD MAKER, CMP ####[facility] Mzqsfxxrjx9665[address] [place], [place] [address]Dr. Airam Tripathi PROTIMEon 06-17-2022 INR Coag (PPP) [Relative time] 1.00 {INR} Normal [facility] Comment on above: Performed By: #### P T ####[facility] Gyuawqcjyp1138[address] [place], [place] [address]Dr. Airam Tripathi INR GUIDELINES SEE BELOW Normal [facility] Comment on above: Result Comment: SIDRA RED INR: 2.0 - 3.0 CONDITIONS NOT LISTED BELOW 2.5 - 3.5 FOR PROSTHETIC HEART VALVE REPLACEMENT 2.5 - 3.5 RECURRENT THROMBOSIS Performed By: #### P T ####[facility] Ijixwmjhaj882[address] [place], [place] [address]Dr. Airam Tripathi PT Coag (PPP) [Time] 10.8 s Normal 9.0-11.6 [facility] Comment on above: Performed By: #### P T ####[facility] Qcbagfixbk5538[address] [place], [place] [address]Dr. Airam Tripathi PTTon 06-17-2022 aPTT Coag (Bld) [Time] 27.2 s Normal 22.3-36.2 [facility] Comment on above: Performed By: #### P TT ####[facility] Bkhjrobvpo7047[address] [place], [place] [address]Dr. Airam Tripathi BNPon 06-16-2022 Natriuretic peptide B (Bld) [Mass/Vol] 2293.0 pg/mL Critically high <=900.0 [facility] Comment on above: Performed By: #### C MP, BNP ####[facility] Ydlnrtzrys7[address] [place], [place] [address]Dr. Airam Tripathi CBC AUTO DIFFon 06-16-2022 BASO # 0.0 103/ul Normal 0.0-0.1 [facility] Comment on above: Performed By: #### C BC ####[facility] Eygojjaclv517[address] [place], [place] [address]Dr. Airam Tripathi Basophils/100 WBC (Bld) 0.4 % Normal 0.2-2.0 [facility] Comment on above: Performed By: #### C BC ####[facility] Tozqjotavj2465[address] [place], [place] [address]Dr. Airam Tripathi EO # 0.2 103/ul Normal 0.0-0.7 [facility] Comment on above: Performed By: #### C BC ####[facility] Qoinkjuqgi45[address] [place] [address]Dr. Airam Tripathi Eosinophils/100 WBC (Bld) 3.0 % Normal 0.9-7.0 [facility] Comment on above: Performed By: #### C BC ####[facility] Omhfmaezyh5[address] [place] [address]Dr. Airam Tripathi Erythrocyte distribution width (RBC) [Ratio] 13.3 % Normal 11.0-15.0 [facility] Comment on above: Performed By: #### C BC ####[facility] Jekqosrbgl[address]66 [place] [address]Dr. Airam Tripathi Hematocrit (Bld) [Volume fraction] 26.2 % Critically low 36.0-48.0 [facility] Comment on above: Performed By: #### C BC ####[facility] Qhtyftqhoq0939[address] [place], [place] [address]Dr. Airam Tripathi Hemoglobin (Bld) [Mass/Vol] 8.3 g/dL Critically low 12.0-16.0 [facility] Comment on above: Performed By: #### C BC ####[facility] Jffzentjsf9330[address] [place], [place] [address]Dr. Airam Tripathi IG # 0.08 10e3/ul Critically high 0.00-0.03 [facility] Comment on above: Performed By: #### C BC ####[facility] Cjyqqkxnck8139[address] [place], [place] [address]Dr. Airam Tripathi IG % 1.1 % Critically high 0.0-0.5 [facility] Comment on above: Performed By: #### C BC ####[facility] Woxsfmvwzs939[address] [place], [place] [address]DrKianna Waltersneil Deuce LYMPH # 1.2 103/ul Normal 1.2-3.8 [facility] Comment on above: Performed By: #### C BC ####[facility] Fpdnuoyecj48364[address] [place], [place] [address]Dr. Airam Deuce Lymphocytes/100 WBC (Bld) 17.3 % Critically low 20.5-60.0 [facility] Comment on above: Performed By: #### C BC ####[facility] [address]zyptr[address] [place] [address]DrKianna rTipathi MANUAL DIFF REQ NO Normal [facility] Comment on above: Performed By: #### C BC ####[facility] Qerqjbmyob9583 [place] [address]DrKianna Tripathi MCH (RBC) [Entitic mass] 30.3 pg Normal 26.7-34.0 [facility] Comment on above: Performed By: #### C BC ####[facility] Fghbjfeyso408[address] [place], [place] [address]DrKianna Tripathi MCHC (RBC) [Mass/Vol] 31.7 g/dL Normal 29.9-35.2 [facility] Comment on above: Performed By: #### C BC ####[facility] Dhalrhyogq3223[address] [place], [place] [address]DrKianna Tripathi MCV (RBC) [Entitic vol] 95.6 fL Normal 81.0-99.0 [facility] Comment on above: Performed By: #### C BC ####[facility] Xaokyjaqlv7[address] [place], [place] [address]DrKianna Tripathi MONO # 0.5 103/ul Normal 0.3-0.8 [facility] Comment on above: Performed By: #### C BC ####[facility] Eqdwunlvtl0211[address] [place], [place] [address]DrKianna Tripathi Monocytes/100 WBC (Bld) 7.1 % Normal 1.7-12.0 [facility] Comment on above: Performed By: #### C BC ####[facility] Jvbjcrjrdf17[address] [place], [place] [address]DrKianna Tripathi NEUT # 5.0 103/ul Normal 1.4-6.5 [facility] Comment on above: Performed By: #### C BC ####[facility] Aqzgwksxff8[address] [place], [place] [address]DrKianna Tripathi Neutrophils/100 WBC (Bld) 71.1 % Normal 43.0-75.0 [facility] [facility] Comment on above: Performed By: #### C BC ####[facility] [address]ijtytooo[address] [place] [address]Dr. Airam Tripathi Platelet mean volume (Bld) [Entitic vol] 8.2 fL Critically low 9.5-13.5 [facility] Comment on above: Performed By: #### C BC ####[facility] Crrpyqcinm[address] [place] [address]Dr. Airam Tripathi PLT 247 103/ul Normal 150-450 [facility] Comment on above: Performed By: #### C BC ####[facility] Fmgzzesevq129[address] [place], [place] [address]Dr. Selenaneil Tripathi RBC 2.74 106/ul Critically low 4.20-5.40 [facility] Comment on above: Performed By: #### C BC ####[facility] Ovpabedudc[address] [place], [place] [address]Dr. Airam Tripathi WBC 7.1 103/ul Normal 4.0-11.0 [facility] Comment on above: Performed By: #### C BC ####[facility] Thxdpsrhdw313347 [address] [place], [place] [address]Dr. Airam Tripathi CTA CHEST WO W CONon 022 CTA CHEST WO W CON Normal [facility] PROF 14(COMP METB)on 022 Albumin [Mass/Vol] 2.6 g/dL Critically low 3.4-5.0 e [facility] Comment on above: Performed By: #### C MP, BNP ####[facility] Lwchdlrytc885[address] [place], [place] [address]Dr. Airam Tripathi Albumin/Globulin [Mass ratio] 0.8 {ratio} Normal [facility] Comment on above: Performed By: #### C MP, BNP ####[facility] Fyqmubuydm[address] [place] [address]Dr. Airam Tripathi ALP [Catalytic activity/Vol] 130 U/L Critically high 46-116 [facility] Comment on above: Performed By: #### C MP, BNP ####[facility] Jmnnnebdti[address] [place] [address]Dr. Airam Tripathi ALT [Catalytic activity/Vol] 12 U/L Critically low 14-59 [facility] Comment on above: Performed By: #### C MP, BNP ####[facility] Jlmsqyrfyp9950[address] [place], [place] [address]Dr. Airam Tripathi Anion gap [Moles/Vol] 11.8 mmol/L Normal Th [facility] Comment on above: Performed By: #### C MP, BNP ####[facility] Pxlgypjfvt0834[address] [place], [place] [address]Dr. Airam Tripathi AST [Catalytic activity/Vol] 22 U/L Normal 15-37 [facility] Comment on above: Performed By: #### C MP, BNP ####[facility] Usgppguyuf2229[address] [place], [place] [address]Dr. Airam Tripathi Bilirubin [Mass/Vol] 0.2 mg/dL Normal 0.2-1.0 [facility] Comment on above: Performed By: #### C MP, BNP ####[facility] Gfecvzrcnp352147 [address] [place], [place] [address]Dr. Airam Tripathi Calcium [Mass/Vol] 8.0 mg/dL Critically low 8.5-10.1 [facility] Comment on above: Performed By: #### C MP, BNP ####[facility] Zutmxqpsvh813247 [address] [place], [place] [address]Dr. Airam Tripathi Chloride [Moles/Vol] 104 mmol/L Normal 98-107 [facility] Comment on above: Performed By: #### C MP, BNP ####[facility] Mfuzmntqkx7[address] [place], [place] [address]Dr. Airam Tripathi CO2 [Moles/Vol] 22.8 mmol/L Normal 21.0-32.0 [facility] Comment on above: Performed By: #### C MP, BNP ####[facility] Dkpsuznbqi198247 [address] [place], [place] [address]Dr. Airam Tripathi Creatinine [Mass/Vol] 1.07 mg/dL Critically high 0.55-1.02 [facility] Comment on above: Performed By: #### C MP, BNP ####[facility] Qu[address]idtbih[address] [place] [phone]. Airam Tripathi EGFR-AF QATARI >60 Normal >=60 [facility] Comment on above: Performed By: #### C MP, BNP ####[facility] Hlmltwiygr6[address] [place] [id number]. Airam Tripathi EGFR-NON AF QATARI 52 mL/min/1.73m2 Critically low >=60 [facility] Comment on above: Performed By: #### C MP, BNP ####[facility] Bsqtyikjxi[address] [place] [address]Dr. Airam Tripathi Globulin (S) [Mass/Vol] 3.1 g/dL Normal [facility] Comment on above: Performed By: #### C MP, BNP ####[facility] Agvlrxkfus673547 [address] [place], [place] [address]Dr. Selenaneil Tripathi Glucose [Mass/Vol] 85 mg/dL Normal 74-106 [facility] Comment on above: Performed By: #### C MP, BNP ####[facility] Reysmiyfnh220347 [address] [place], [place] [address]Dr. Airam Tripathi Potassium [Moles/Vol] 4.6 mmol/L Normal 3.5-5.1 [facility] Comment on above: Performed By: #### C MP, BNP ####[facility] Uwzihumbpn664347 [address] [place], [place] [address]Dr. Airam Tripathi Protein [Mass/Vol] 5.7 g/dL Critically low 6.4-8.2 [facility] Comment on above: Performed By: #### C MP, BNP ####[facility] Wonkvyskmk212447 [address] [place], [place] [address]Dr. Airam Tripathi Sodium [Moles/Vol] 134 mmol/L Critically low 136-145 [facility] Comment on above: Performed By: #### C MP, BNP ####[facility] Jugqywokpa4148[address] [place], [place] [address]Dr. Selenaneil Tripathi Urea nitrogen [Mass/Vol] 24.0 mg/dL Critically high 7.0-18.0 [facility] Comment on above: Performed By: #### C MP, BNP ####[facility] Rdytnsvcir152947 [address] [place], [place] [address]Dr. Airam Tripathi Urea nitrogen/Creatinine [Mass ratio] 22.4 mg/mg Normal [facility] Comment on above: Performed By: #### C MP, BNP ####[facility] Eexrrajuwl37024[address] [place], [place] [address]Dr. Airam Tripathi BNPon 06-15-2022 Natriuretic peptide B (Bld) [Mass/Vol] 934.0 pg/mL Critically high <=900.0 [facility] Comment on above: Performed By: #### C MP, BNP ####[facility] Ldwettdxyw873447 [address] [place], [place] [address]Dr. Airam Tripathi CBC AUTO DIFFon 06-15-2022 BASO # 0.0 103/ul Normal 0.0-0.1 [facility] Comment on above: Performed By: #### C BC ####[facility] Mejogjsvim411147 [address] [place], [place] [address]Dr. Airam Tripathi Basophils/100 WBC (Bld) 0.2 % Normal 0.2-2.0 [facility] Comment on above: Performed By: #### C BC ####[facility] Xpuqtnszrs830047 [address] [place], [place] [address]Dr. Airam Tripathi EO # 0.1 103/ul Normal 0.0-0.7 [facility] Comment on above: Performed By: #### C BC ####[facility] Phhlxceipz404147 [address] [place], [place] [address]Dr. Airam Tripathi Eosinophils/100 WBC (Bld) 2.1 % Normal 0.9-7.0 [facility] Comment on above: Performed By: #### C BC ####[facility] Xaefiltvny151047 [address] [place], [place] [address]Dr. Airam Tripathi Erythrocyte distribution width (RBC) [Ratio] 12.9 % Normal 11.0-15.0 [facility] Comment on above: Performed By: #### C BC ####[facility] Bqsocaqstd98[address] [place], [place] [address]Dr. Selenaneil Tripathi Hematocrit (Bld) [Volume fraction] 24.9 % Critically low 36.0-48.0 [facility] Comment on above: Performed By: #### C BC ####[facility] C[address]ivxjeng[address] [place] [address]Dr. Selenaneil Tripathi Hemoglobin (Bld) [Mass/Vol] 7.9 g/dL Critically low 12.0-16.0 [facility] Comment on above: Performed By: #### C BC ####[facility] Jhbfiuomwg[address] [place] [address]Dr. Airam Tripathi IG # 0.05 10e3/ul Critically high 0.00-0.03 [facility] Comment on above: Performed By: #### C BC ####[facility] Sobrzzfpid24[address] [place] [address]Dr. Airam Tripathi IG % 0.8 % Critically high 0.0-0.5 [facility] Comment on above: Performed By: #### C BC ####[facility] Ztfinhvxrl430447 [address] [place], [place] [address]Dr. Airam Tripathi LYMPH # 0.9 103/ul Critically low 1.2-3.8 [facility] Comment on above: Performed By: #### C BC ####[facility] Qeazuueaul01[address] [place] [address]Dr. Airam Tripathi Lymphocytes/100 WBC (Bld) 13.7 % Critically low 20.5-60.0 [facility] Comment on above: Performed By: #### C BC ####[facility] Rcijhnsfmv3[address] [place] [address]Dr. Airam Tripathi MANUAL DIFF REQ NO Normal [facility] Comment on above: Performed By: #### C BC ####[facility] Whljghssjh8375 [place] [address]DrKianna Tripathi MCH (RBC) [Entitic mass] 30.2 pg Normal 26.7-34.0 [facility] Comment on above: Performed By: #### C BC ####[facility] [address]qhqhgs[address] [place], [place] [address]Dr. Airam Tripathi MCHC (RBC) [Mass/Vol] 31.7 g/dL Normal 29.9-35.2 [facility] Comment on above: Performed By: #### C BC ####[facility] Ptqhehjruj[address] [place] [phone]. Airam Tripathi MCV (RBC) [Entitic vol] 95.0 fL Normal 81.0-99.0 [facility] Comment on above: Performed By: #### C BC ####[facility] Hhtwlqbfkx87[address] [place] [address]Dr. Airam Deuce MONO # 0.4 103/ul Normal 0.3-0.8 [facility] Comment on above: Performed By: #### C BC ####[facility] Ltrfpkalfp350[address] [place] [address]Dr. Airam Tripathi Monocytes/100 WBC (Bld) 6.7 % Normal 1.7-12.0 [facility] Comment on above: Performed By: #### C BC ####[facility] Vsiizzlekf[address] [place] [address]Dr. Airam Deuce NEUT # 5.0 103/ul Normal 1.4-6.5 [facility] Comment on above: Performed By: #### C BC ####[facility] Vdmxdfmtcd1303 [place] [address]Dr. Airam Deuce Neutrophils/100 WBC (Bld) 76.5 % Critically high 43.0-75.0 [facility] Comment on above: Performed By: #### C BC ####[facility] Fbfgzuolqo07[address] [place] [address]Dr. Airam Deuce Platelet mean volume (Bld) [Entitic vol] 8.4 fL Critically low 9.5-13.5 [facility] Comment on above: Performed By: #### C BC ####[facility] Jdjasiljli25[address] [place] [address]Dr. Airam Tripathi PLT 202 103/ul Normal 150-450 [facility] Comment on above: Performed By: #### C BC ####[facility] Xqzxdhfeih7468 [place] [address]Dr. Airam Tripathi RBC 2.62 106/ul Critically low 4.20-5.40 [facility] Comment on above: Performed By: #### C BC ####[facility] Rctehpzxkp888[address] [place], [place] [address]Dr. Airam Tripathi WBC 6.6 103/ul Normal 4.0-11.0 [facility] Comment on above: Performed By: #### C BC ####[facility] Edgzwcqiim324147 [address] [place], [place] [address]Dr. Selenaneil Deuce OSMOLALITYon 06-15-2022 Osmolality [Osmolality] 269 mosm/kg Critically low 275-295 [facility] Comment on above: Performed By: #### O SMO ####[facility] Wiglvntdeu869447 [address] [place], [place] [address]Dr. Airam Tripathi PROF 14(COMP METB)on 022 Albumin [Mass/Vol] 2.5 g/dL Critically low 3.4-5.0 [facility] Comment on above: Performed By: #### C MP, BNP ####[facility] Cobaxryplq478247 [address] [place], [place] [address]Dr. Airam Tripathi Albumin/Globulin [Mass ratio] 0.9 {ratio} Normal [facility] Comment on above: Performed By: #### C MP, BNP ####[facility] Mmyfgoeipb471247 [address] [place], [place] [address]Dr. Airam Tripathi ALP [Catalytic activity/Vol] 128 U/L Critically high 46-116 [facility] Comment on above: Performed By: #### C MP, BNP ####[facility] Aqsmagjvit511647 [address] [place], [place] [address]Dr. Airam Tripathi ALT [Catalytic activity/Vol] 14 U/L Normal 14-59 [facility] Comment on above: Performed By: #### C MP, BNP ####[facility] Trtdjhjhws427647 [address] [place], [place] [address]Dr. Airam Tripathi Anion gap [Moles/Vol] 10.4 mmol/L Normal [facility] Comment on above: Performed By: #### C MP, BNP ####[facility] Ihgezzjinf8[address] [place] [address]Dr. Airam Tripathi AST [Catalytic activity/Vol] 23 U/L Normal 15-37 [facility] Comment on above: Performed By: #### C MP, BNP ####[facility] Dnkjpgqxjz462847 [address] [place], [place] [address]Dr. Airam Tripathi Bilirubin [Mass/Vol] 0.2 mg/dL Normal 0.2-1.0 [facility] Comment on above: Performed By: #### C MP, BNP ####[facility] Mpcvnqawub244547 [address] [place], [place] [address]Dr. Airam Tripathi Calcium [Mass/Vol] 7.4 mg/dL Critically low 8.5-10.1 Th e [facility] Comment on above: Performed By: #### C MP, BNP ####[facility] Aczxpayybd148847 [address] [place], [place] [address]Dr. Airam Tripathi Chloride [Moles/Vol] 99 mmol/L Normal 98-107 [facility] Comment on above: Performed By: #### C MP, BNP ####[facility] Xrrjjkjdwk509347 [address] [place], [place] [address]Dr. Airam Tripathi CO2 [Moles/Vol] 24.1 mmol/L Normal 21.0-32.0 [facility] Comment on above: Performed By: #### C MP, BNP ####[facility] Omwffcwfvl972247 [address] [place], [place] [address]Dr. Airam Tripathi Creatinine [Mass/Vol] 1.45 mg/dL Critically high 0.55-1.02 [facility] Comment on above: Performed By: #### C MP, BNP ####[facility] Mmxbiozuhk79264[address] [place], [place] [address]Dr. Airam Tripathi EGFR-AF QATARI 45 mL/min/1.73m2 Critically low >=60 [facility] Comment on above: Performed By: #### C MP, BNP ####[facility] Xhusnzukth044147 [address] [place], [place] [address]Dr. Airam Deuce EGFR-NON AF QATARI 37 mL/min/1.73m2 Critically low >=60 [facility] Comment on above: Performed By: #### C MP, BNP ####[facility] Znylzqlmzh28[address] [place] [address]Dr. Airam Tripathi Globulin (S) [Mass/Vol] 2.8 g/dL Normal [facility] Comment on above: Performed By: #### C MP, BNP ####[facility] Muopyxomcs189447 [address] [place], [place] [address]Dr. Airam Tripathi Glucose [Mass/Vol] 82 mg/dL Normal 74-106 [facility] Comment on above: Performed By: #### C MP, BNP ####[facility] Ixxqwgjovo363947 [address] [place], [place] [address]Dr. Airam Tripathi Potassium [Moles/Vol] 4.5 mmol/L Normal 3.5-5.1 [facility] Comment on above: Performed By: #### C MP, BNP ####[facility] Auzcybikep457647 [address] [place], [place] [address]Dr. Airam Tripathi Protein [Mass/Vol] 5.3 g/dL Critically low 6.4-8.2 Th [facility] Comment on above: Performed By: #### C MP, BNP ####[facility] Vnrpdjacpm2030[address] [place], [place] [address]Dr. Airam Tripathi Sodium [Moles/Vol] 129 mmol/L Critically low 136-145 Th [facility] Comment on above: Performed By: #### C MP, BNP ####[facility] Hntgfyuhmi830[address] [place], [place] [address]Dr. Airam Tripathi Urea nitrogen [Mass/Vol] 35.0 mg/dL Critically high 7.0-18.0 [facility] Comment on above: Performed By: #### C MP, BNP ####[facility] Zzmlbtbrrj807247 [address] [place], [place] [address]Dr. Airam Tripathi Urea nitrogen/Creatinine [Mass ratio] 24.1 mg/mg Normal [facility] Comment on above: Performed By: #### C MP, BNP ####[facility] Tktothfspc305947 [address] [place], [place] [address]Dr. Airam Tripathi T3, TOTAL (TRIIODOTHYRONINE) on 12--2022 T3, TOTAL 113 ng/dL Normal 71-180 [facility] Comment on above: Performed By: #### T 3TOTAL ####[facility] Iybmxopktz37[address] [place] [address]Dr. Airam Tripathi BNPon 06-14-2022 Natriuretic peptide B (Bld) [Mass/Vol] 1024.0 pg/mL Critically high <=900.0 The [facility] Comment on above: Performed By: #### B SURFBOARD MAKER, CMP ####[facility] Lfrmifkhzc7516[address] [place], [place] [address]Dr. Airam Tripathi CARDIAC CONSUELO 3-6on 2 CK [Catalytic activity/Vol] 116 U/L Normal 26-192 [facility] Comment on above: Performed By: #### C MREP ####[facility] Jyacduhxeb764347 [address] [place], [place] [address]Dr. Airam Tripathi CK.MB [Mass/Vol] ng/mL Normal <=3.60 [facility] Comment on above: Performed By: #### C MREP ####[facility] Xnevqtjorw489[address] [place], [place] [address]Dr. Airam Tripathi HSTROP 6.0 pg/mL Normal 4.0-51.3 [facility] Comment on above: Result Comment: CUT- OFF POINTS HAVE BEEN ESTABLISHED BASED ON THE FOURTH UNIVERSAL DEFINITIONS OF MYOCARDIALINFARCTION. THE UPPER REFERENCE LIMIT (URL) OF TROPONIN, DEFINED THE 99TH PERCENTILE OFcTnI DISTRIBUTION IN A REFERENCE POPULATION, HAS BEEN CONFIRMED THE DECISION THRESHOLDFOR LA DIAGNOSIS. Performed By: #### C MREP ####[facility] Mebmaispyt1435[address] [place], [place] [address]Dr. Airam Tripathi CBC AUTO DIFFon 06-14-2022 BASO # 0.0 103/ul Normal 0.0-0.1 [facility] Comment on above: Performed By: #### C BC ####[facility] Dofiuudoyd13[address] [place] [address]Dr. Airam Tripathi Basophils/100 WBC (Bld) 0.3 % Normal 0.2-2.0 [facility] Comment on above: Performed By: #### C BC ####[facility] Owjabnvgim8247 [place] [phone]. Airam Tripathi EO # 0.2 103/ul Normal 0.0-0.7 [facility] Comment on above: Performed By: #### C BC ####[facility] Lbgqgngute24224[address] [place], [place] [address]Dr. Airam Tripathi Eosinophils/100 WBC (Bld) 2.0 % Normal 0.9-7.0 [facility] Comment on above: Performed By: #### C BC ####[facility] Hjbatnodwo0301[address] [place], [place] [address]Dr. Airam Tripathi Erythrocyte distribution width (RBC) [Ratio] 12.8 % Normal 11.0-15.0 [facility] Comment on above: Performed By: #### C BC ####[facility] Iuujyarbnx275[address] [place], [place] [address]Dr. Airam Tripathi Hematocrit (Bld) [Volume fraction] 27.4 % Critically low 36.0-48.0 [facility] Comment on above: Performed By: #### C BC ####[facility] Mroxbtffhv5032[address] [place], [place] [address]Dr. Airam Tripathi Hemoglobin (Bld) [Mass/Vol] 8.7 g/dL Critically low 12.0-16.0 [facility] Comment on above: Performed By: #### C BC ####[facility] Debtzduzzp2037[address] [place], [place] [address]Dr. Airam Tripathi IG # 0.11 10e3/ul Critically high 0.00-0.03 [facility] Comment on above: Performed By: #### C BC ####[facility] Plffdxbtzk898347 [address] [place], [place] [address]Dr. Airam Tripathi IG % 1.1 % Critically high 0.0-0.5 [facility] Comment on above: Performed By: #### C BC ####[facility] Maxyenyhrv780[address] [place], [place] [address]Dr. Selenaneil Tripathi LYMPH # 0.9 103/ul Critically low 1.2-3.8 [facility] Comment on above: Performed By: #### C BC ####[facility] Kuaigxrcqz4586 [place] [phone]. Selenaneil Tripathi Lymphocytes/100 WBC (Bld) 9.7 % Critically low 20.5-60.0 [facility] Comment on above: Performed By: #### C BC ####[facility] Ptvgemgtyf6[address] [place] [phone]. Airam Tripathi MANUAL DIFF REQ NO Normal [facility] Comment on above: Performed By: #### C BC ####[facility] Rxpbukovbb7556 [place] [phone]. Airam Tripathi MCH (RBC) [Entitic mass] 30.0 pg Normal 26.7-34.0 [facility] Comment on above: Performed By: #### C BC ####[facility] Rnytiispqd0835[address] [place], [place] [address]Dr. Airam Tripathi MCHC (RBC) [Mass/Vol] 31.8 g/dL Normal 29.9-35.2 [facility] Comment on above: Performed By: #### C BC ####[facility] Ehuzzkplcj865[address] [place], [place] [address]Dr. Airam Tripathi MCV (RBC) [Entitic vol] 94.5 fL Normal 81.0-99.0 [facility] Comment on above: Performed By: #### C BC ####[facility] Rgsdhdpjsu99[address] [place], [place] [address]Dr. Airam Tripathi MONO # 0.6 103/ul Normal 0.3-0.8 [facility] Comment on above: Performed By: #### C BC ####[facility] Tvnnswggrd886[address] [place], [place] [address]Dr. Airam Tripathi Monocytes/100 WBC (Bld) 5.7 % Normal 1.7-12.0 [facility] Comment on above: Performed By: #### C BC ####[facility] Xlatmvwryl7213[address] [place], [place] [address]Dr. Airam Tripathi NEUT # 7.8 103/ul Critically high 1.4-6.5 [facility] Comment on above: Performed By: #### C BC ####[facility] Xjzhyeoqkw3559 [place] [phone]. Airam Tripathi Neutrophils/100 WBC (Bld) 81.2 % Critically high 43.0-75.0 [facility] Comment on above: Performed By: #### C BC ####[facility] Nbkbshoawy9817 [place] [phone] Tripathi Platelet mean volume (Bld) [Entitic vol] 8.6 fL Critically low 9.5-13.5 [facility] Comment on above: Performed By: #### C BC ####[facility] Aftemneekk[address] [place] [address]Dr. Airam Tripathi PLT 283 103/ul Normal 150-450 [facility] Comment on above: Performed By: #### C BC ####[facility] Snmdmbgoef5746 [place] [address]Dr. Airam Tripathi RBC 2.90 106/ul Critically low 4.20-5.40 [facility] Comment on above: Performed By: #### C BC ####[facility] Gfosjsikyt9203 [place] [address]Dr. Airam Tripathi WBC 9.6 103/ul Normal 4.0-11.0 [facility] Comment on above: Performed By: #### C BC ####[facility] Ftvpmmfpfl68[address] [place] [address]DrKianna Tripathi OSMOLALITYon 06-14-2022 Osmolality [Osmolality] 273 mosm/kg Critically low 275-295 [facility] Comment on above: Performed By: #### O SMO ####[facility] Qrzlvwgdqo[address] [place] [address]DrKianna Tripathi PROF 14(COMP METB)on 022 Albumin [Mass/Vol] 3.2 g/dL Critically low 3.4-5.0 Th e [facility] Comment on above: Performed By: #### B SURFBOARD MAKER, CMP ####[facility] Juywpnggmr7421 [place] [address]DrKianna Tripathi Albumin/Globulin [Mass ratio] 1.0 {ratio} Normal [facility] Comment on above: Performed By: #### B SURFBOARD MAKER, CMP ####[facility] Fnozfcriri8162 [place] [address]Dr. Airam Tripathi ALP [Catalytic activity/Vol] 154 U/L Critically high 46-116 [facility] Comment on above: Performed By: #### B SURFBOARD MAKER, CMP ####[facility] Twezwlmgpo5749 [place] [address]Dr. Airam Deuce ALT [Catalytic activity/Vol] 17 U/L Normal 14-59 [facility] Comment on above: Performed By: #### B SURFBOARD MAKER, CMP ####[facility] Okxgpyploc0088 [place] [address]Dr. Selenaneil Deuce Anion gap [Moles/Vol] 12.0 mmol/L Normal [facility] Comment on above: Performed By: #### B SURFBOARD MAKER, CMP ####[facility] Ingovwtdvj33[address] [place], [place] [address]Dr. Airam Deuce AST [Catalytic activity/Vol] 25 U/L Normal 15-37 [facility] Comment on above: Performed By: #### B SURFBOARD MAKER, CMP ####[facility] Jxxkxyykqw11[address] [place], [place] [address]Dr. Airam Deuce Bilirubin [Mass/Vol] 0.3 mg/dL Normal 0.2-1.0 [facility] Comment on above: Performed By: #### B SURFBOARD MAKER, CMP ####[facility] [id number] [address] [place], [place] [address]Dr. Airam Tripathi Calcium [Mass/Vol] 7.6 mg/dL Critically low 8.5-10.1 [facility] Comment on above: Performed By: #### B SURFBOARD MAKER, CMP ####[facility] Fynrjkbryi[address] [place], [place] [address]Dr. Airam Tripathi Chloride [Moles/Vol] 92 mmol/L Critically low 98-107 [facility] Comment on above: Performed By: #### B SURFBOARD MAKER, CMP ####[facility] Zxibbgopmv8039[address] [place], [place] [address]Dr. Airam Tripathi CO2 [Moles/Vol] 25.2 mmol/L Normal 21.0-32.0 [facility] Comment on above: Performed By: #### B SURFBOARD MAKER, CMP ####[facility] Bsxsjmyoge6377[address] [place], [place] [address]Dr. Airam Tripathi Creatinine [Mass/Vol] 1.83 mg/dL Critically high 0.55-1.02 [facility] Comment on above: Performed By: #### B SURFBOARD MAKER, CMP ####[facility] Atmzxdsjkh29[address] [place], [place] [address]Dr. Airam Deuce EGFR-AF QATARI 34 mL/min/1.73m2 Critically low >=60 [facility] Comment on above: Performed By: #### B SURFBOARD MAKER, CMP ####[facility] Eyzfvypxzv5455[address] [place], [place] [address]Dr. Airam Deuce EGFR-NON AF QATARI 28 mL/min/1.73m2 Critically low >=60 [facility] Comment on above: Performed By: #### B SURFBOARD MAKER, CMP ####[facility] Rrqodferab9148[address] [place], [place] [address]Dr. Airam Deuce Globulin (S) [Mass/Vol] 3.1 g/dL Normal [facility] Comment on above: Performed By: #### B SURFBOARD MAKER, CMP ####[facility] Dkcnpjztmv288[address] [place], [place] [address]Dr. Airam Deuce Glucose [Mass/Vol] 77 mg/dL Normal 74-106 [facility] Comment on above: Performed By: #### B SURFBOARD MAKER, CMP ####[facility] Hlkyeikfrj3655[address] [place], [place] [address]Dr. Airam Deuce Potassium [Moles/Vol] 4.2 mmol/L Normal 3.5-5.1 [facility] Comment on above: Performed By: #### B SURFBOARD MAKER, CMP ####[facility] Cejijorkfa319247 [address] [place], [place] [address]Dr. Selenaneil Deuce Protein [Mass/Vol] 6.3 g/dL Critically low 6.4-8.2 [facility] Comment on above: Performed By: #### B SURFBOARD MAKER, CMP ####[facility] Jsqihrwnbq0805 [place] [address]Dr. Airam Tripathi Sodium [Moles/Vol] 125 mmol/L Critically low 136-145 Th e [facility] Comment on above: Performed By: #### B SURFBOARD MAKER, CMP ####[facility] Ebbvwkesfq030[address] [place], [place] [address]Dr. Airam Tripathi Urea nitrogen [Mass/Vol] 35.0 mg/dL Critically high 7.0-18.0 The [facility] Comment on above: Performed By: #### B SURFBOARD MAKER, CMP ####[facility] Qoquzjuqod587347 [address] [place], [place] [address]Dr. Airam Tripathi Urea nitrogen/Creatinine [Mass ratio] 19.1 mg/mg Normal The [facility] Comment on above: Performed By: #### B SURFBOARD MAKER, CMP ####[facility] Jupzskjlgt2710[address] [place], [place] [address]Dr. Airam Tripathi UA RANDOM W/MICROSCOPICon BACTERIA TRACE Abnormal NONE SEEN The [facility] Comment on above: Performed By: #### U AMIC ####[facility] Tzcejmrnqr959[address] [place], [place] [address]Dr. Airam Tripathi Bilirubin Ql (U) Negative Normal NEGATIVE The [facility] Comment on above: Performed By: #### U AMIC ####[facility] Nukxzcopne425747 [address] [place], [place] [address]Dr. Airam Tripathi CAST NONE SEEN Normal NONE SEEN The [facility] Comment on above: Performed By: #### U AMIC ####[facility] Ddijvrrssu6457[address] [place], [place] [address]Dr. Airam Tripathi Clarity (U) CLEAR Normal CLEAR The [facility] Comment on above: Performed By: #### U AMIC ####[facility] Hiemijcbim482447 [address] [place], [place] [address]Dr. Airam Tripathi Color (U) LT. YELLOW Normal YELLOW The [facility] Comment on above: Performed By: #### U AMIC ####[facility] Utgcrwlftd212147 [address] [place], [place] [address]Dr. Airam Tripathi Crystals LM Nom (Urine sed) NONE SEEN Normal NONE SEEN The [facility] Comment on above: Performed By: #### U AMIC ####[facility] Nxlkmgptwz1234 [place] [address]Dr. Airam Tripathi Epithelial cells LM Ql (Urine sed) FEW Abnormal NONE SEEN /RARE The [facility] Comment on above: Performed By: #### U AMIC ####[facility] Yvnpnhxdmb4757 [place] [address]Dr. Airam Tripathi Glucose Ql (U) Negative Normal NEGATIVE The [facility] Comment on above: Performed By: #### U AMIC ####[facility] Qopgzllnuv088547 [address] [place], [place] [address]Dr. Airam Tripathi Hemoglobin Ql (U) Negative Normal NEGATIVE The [facility] Comment on above: Performed By: #### U AMIC ####[facility] Xqnbbcekdo819547 [address] [place], [place] [address]Dr. Airam Tripathi Ketones Ql (U) Negative Normal NEGATIVE The [facility] Comment on above: Performed By: #### U AMIC ####[facility] Hbofujjlxk974547 [address] [place], [place] [address]Dr. Airam Tripathi LEUKOCYTES MODERATE Abnormal NEGATIVE The [facility] Comment on above: Performed By: #### U AMIC ####[facility] Pmepudwlay760[address] [place], [place] [address]Dr. Airam Tripathi MUCOUS NONE SEEN Normal NONE SEEN The [facility] Comment on above: Performed By: #### U AMIC ####[facility] Bspdqjbdzm164347 [address] [place], [place] [address]Dr. Airam Tripathi Nitrite Ql (U) Negative Normal NEGATIVE The [facility] Comment on above: Performed By: #### U AMIC ####[facility] Cgpxawztwj808247 [address] [place], [place] [address]Dr. Airam Tripathi pH (U) 5.5 [pH] Normal 5-9 The [facility] Comment on above: Performed By: #### U AMIC ####[facility] Bugtgncuon653747 [address] [place], [place] [address]Dr. Airam Tripathi RBC 0-2 Normal 0-2 The [facility] Comment on above: Performed By: #### U AMIC ####[facility] Rzpwsbwdpb4742 [place] [address]Dr. Airam Tripathi SPEC GRAVITY 1.020 Normal 1.005-<=1. 025 The [facility] Comment on above: Performed By: #### U AMIC ####[facility] Kgfjoyinak2233 [place] [address]Dr. Airam Tripathi UA PROTEIN Negative Normal NEGATIVE/ TRACE The [facility] Comment on above: Performed By: #### U AMIC ####[facility] Nklwoasyfa8738 [place] [address]Dr. Airam Tripathi Urobilinogen Qn (U) 0.2 {Ligia'U}/dL Normal 0.2 - 1. 0 The [facility] Comment on above: Performed By: #### U AMIC ####[facility] Qpgkbuhugy0061 [place] [address]Dr. Airam Tripathi WBC 5-10 Abnormal NONE SEEN The [facility] Comment on above: Performed By: #### U AMIC ####[facility] Dpqtpkntwa276047 [address] [place], [place] [address]Dr. Airam Tripathi BNPon 06-13-2022 Natriuretic peptide B (Bld) [Mass/Vol] 1496.0 pg/mL Critically high <=900.0 The [facility] Comment on above: Performed By: #### T 4, BNP, MG, TSH, CMADM, CRP, CMP ####[facility] Quabihyfxt7180 [place] [address]Dr. Airam Tripathi CARDIAC CONSUELO 3-6on 2 CK [Catalytic activity/Vol] 125 U/L Normal 26-192 The [facility] Comment on above: Performed By: #### C MREP ####[facility] Uqomsiycoz2930 [place] [address]Dr. Airam Tripathi CK.MB [Mass/Vol] ng/mL Normal <=3.60 The [facility] Comment on above: Performed By: #### C MREP ####[facility] Ftcgqsducc4921 [place] [address]Dr. Airam Tripathi HSTROP 5.8 pg/mL Normal 4.0-51.3 The [facility] Comment on above: Result Comment: CUT- OFF POINTS HAVE BEEN ESTABLISHED BASED ON THE FOURTH UNIVERSAL DEFINITIONS OF MYOCARDIALINFARCTION. THE UPPER REFERENCE LIMIT (URL) OF TROPONIN, DEFINED THE 99TH PERCENTILE OFcTnI DISTRIBUTION IN A REFERENCE POPULATION, HAS BEEN CONFIRMED THE DECISION THRESHOLDFOR LA DIAGNOSIS. Performed By: #### C MREP ####[facility] Vpyqkgdexu6624 [place] [address]Dr. Selenaneil Deuce CARDIAC CONSUELO ADMITon 022 CK [Catalytic activity/Vol] 121 U/L Normal 26-192 The [facility] Comment on above: Performed By: #### T 4, BNP, MG, TSH, CMADM, CRP, CMP ####[facility] Zrozauygye1633 [place] [address]Dr. Selenaneil Tripathi CK.MB [Mass/Vol] 3.06 ng/mL Normal <=3.60 The [facility] Comment on above: Performed By: #### T 4, BNP, MG, TSH, CMADM, CRP, CMP ####[facility] Nawerqxbru0417 [place] [address]Dr. Selenaneil Tripathi HSTROP 6.9 pg/mL Normal 4.0-51.3 The [facility] Comment on above: Result Comment: CUT- OFF POINTS HAVE BEEN ESTABLISHED BASED ON THE FOURTH UNIVERSAL DEFINITIONS OF MYOCARDIALINFARCTION. THE UPPER REFERENCE LIMIT (URL) OF TROPONIN, DEFINED THE 99TH PERCENTILE OFcTnI DISTRIBUTION IN A REFERENCE POPULATION, HAS BEEN CONFIRMED THE DECISION THRESHOLDFOR LA DIAGNOSIS. Performed By: #### T 4, BNP, MG, TSH, CMADM, CRP, CMP ####[facility] Gtbscxosgw5533 [place] [address]Dr. Airam Tripathi KATHY 124 ng/mL Critically high 9-82 The [facility] Comment on above: Performed By: #### T 4, BNP, MG, TSH, CMADM, CRP, CMP ####[facility] Pcwbvormyk2360 [place] [address]Dr. Airam Tripathi CBC AUTO DIFFon 06-13-2022 BASO # 0.0 103/ul Normal 0.0-0.1 The [facility] Comment on above: Performed By: #### C BC ####[facility] Nfynulvphl6081 [place] [id number]. Airam Tripathi Basophils/100 WBC (Bld) 0.2 % Normal 0.2-2.0 The [facility] Comment on above: Performed By: #### C BC ####[facility] Jlzcepzhhi[address] [place], [place] [address]Dr. Airam Tripathi EO # 0.2 103/ul Normal 0.0-0.7 The [facility] Comment on above: Performed By: #### C BC ####[facility] Jukmubvtlb4[address] [place], [place] [address]Dr. Airam Tripathi Eosinophils/100 WBC (Bld) 1.5 % Normal 0.9-7.0 The [facility] Comment on above: Performed By: #### C BC ####[facility] Wkdsucobdm690147 [address] [place], [place] [address]Dr. Airam Tripathi Erythrocyte distribution width (RBC) [Ratio] 12.7 % Normal 11.0-15.0 The [facility] Comment on above: Performed By: #### C BC ####[facility] Pkiqqemmuh0723[address] [place], [place] [address]Dr. Airam Tripathi Hematocrit (Bld) [Volume fraction] 30.0 % Critically low 36.0-48.0 [facility] Comment on above: Performed By: #### C BC ####[facility] Bnmgsqnzfm10[address] [place], [place] [address]Dr. Airam Tripathi Hemoglobin (Bld) [Mass/Vol] 9.6 g/dL Critically low 12.0-16.0 The [facility] Comment on above: Performed By: #### C BC ####[facility] Ooligikwpm2100[address] [place], [place] [address]Dr. Airam Tripathi IG # 0.11 10e3/ul Critically high 0.00-0.03 The [facility] Comment on above: Performed By: #### C BC ####[facility] Wijpavbkhr2047[address] [place], [place] [address]Dr. Selenaneil Tripathi IG % 1.1 % Critically high 0.0-0.5 The [facility] Comment on above: Performed By: #### C BC ####[facility] Hpugknqqlt4623 [place] [phone]. Airam Deuce LYMPH # 1.5 103/ul Normal 1.2-3.8 [facility] Comment on above: Performed By: #### C BC ####[facility] Ehivrhiskc5300 [place] [phone]. Airam Tripathi Lymphocytes/100 WBC (Bld) 14.9 % Critically low 20.5-60.0 [facility] Comment on above: Performed By: #### C BC ####[facility] Hwzjulpnvt9407 [place] [address]Dr. Airam Tripathi MANUAL DIFF REQ NO Normal [facility] Comment on above: Performed By: #### C BC ####[facility] Nprstatydg175347 [address] [place], [place] [address]Dr. Airam Tripathi MCH (RBC) [Entitic mass] 30.0 pg Normal 26.7-34.0 [facility] Comment on above: Performed By: #### C BC ####[facility] Facgbobera1509[address] [place], [place] [address]Dr. Selenaneil Tripathi MCHC (RBC) [Mass/Vol] 32.0 g/dL Normal 29.9-35.2 The [facility] Comment on above: Performed By: #### C BC ####[facility] Fczjdkczbh[address] [place], [place] [address]Dr. Airam Tripathi MCV (RBC) [Entitic vol] 93.8 fL Normal 81.0-99.0 The [facility] Comment on above: Performed By: #### C BC ####[facility] Pomeimqlpc447347 [address] [place], [place] [address]Dr. Airam Tripathi MONO # 0.8 103/ul Normal 0.3-0.8 The [facility] Comment on above: Performed By: #### C BC ####[facility] Czbbntkagt[address] [place], [place] [address]Dr. Airam Tripathi Monocytes/100 WBC (Bld) 7.3 % Normal 1.7-12.0 The [facility] Comment on above: Performed By: #### C BC ####[facility] Ckszjhikqu9888 [place] [phone]. Airam Tripathi NEUT # 7.8 103/ul Critically high 1.4-6.5 The [facility] Comment on above: Performed By: #### C BC ####[facility] Wjtlkpgysq9378 [place] [phone]. Airam Tripathi Neutrophils/100 WBC (Bld) 75.0 % Normal 43.0-75.0 The [facility] Comment on above: Performed By: #### C BC ####[facility] Mtwvxrhlfp7099 [place] [phone]. Airam Tripathi Platelet mean volume (Bld) [Entitic vol] 9.1 fL Critically low 9.5-13.5 The [facility] Comment on above: Performed By: #### C BC ####[facility] Prwvkgfrry4196 [place] [address]Dr. Airam Tripathi PLT 341 103/ul Normal 150-450 The [facility] Comment on above: Performed By: #### C BC ####[facility] Jdixrmuxja2112 [place] [phone]. Airam Tripathi RBC 3.20 106/ul Critically low 4.20-5.40 The [facility] Comment on above: Performed By: #### C BC ####[facility] Xrhdcdugec6798 [place] [address]Dr. Airam Tripathi WBC 10.4 103/ul Normal 4.0-11.0 The [facility] Comment on above: Performed By: #### C BC ####[facility] Ptbxpviuol9617 [place] [phone]. Airam Tripathi CRPon 06-13-2022 CRP [Mass/Vol] mg/L Normal <=1.0 The [facility] Comment on above: Performed By: #### T 4, BNP, MG, TSH, CMADM, CRP, CMP ####[facility] Unpjingsrd2324 [place] [phone]. Airam Tripathi CT HEAD WO CONon 06-13-2022 CT HEAD WO CON Normal [facility] Covid-19 PCR (CVDTB)on 05-26 SARS-CoV-2 (COVID-19) RNA MIKE+probe Ql (Unsp spec) Not detected Normal NOT DETECTED The [facility] Comment on above: Result Comment: When [...] for this test is supported by the [place] of [employer] and Human Service's declaration that [...] Performed By: #### C VDTBH ####[facility] Ouewwwpugq100[address] [place], [place] [address]Dr. Airam Tripathi LACTATE/LACTIC ACIDon 2021 Lactate [Moles/Vol] 0.5 mmol/L Normal 0.4-1.9 The [facility] Comment on above: Performed By: #### L ACT ####[facility] Adeyyjqmoh715[address] [place], [place] [address]Dr. Airam Tripathi MAGNESIUMon 06-13-2022 Magnesium [Mass/Vol] 1.9 mg/dL Normal 1.8-2.4 The [facility] Comment on above: Performed By: #### T 4, BNP, MG, TSH, CMADM, CRP, CMP ####[facility] Rtvnyljkjz8573 [place] [address]Dr. Airam Tripathi PROF 14(COMP METB)on 022 Albumin [Mass/Vol] 3.8 g/dL Normal 3.4-5.0 The [facility] Comment on above: Performed By: #### T 4, BNP, MG, TSH, CMADM, CRP, CMP ####[facility] Fjlyxbuxso9871 [place] [address]Dr. Airam Tripathi Albumin/Globulin [Mass ratio] 1.1 {ratio} Normal [facility] Comment on above: Performed By: #### T 4, BNP, MG, TSH, CMADM, CRP, CMP ####[facility] Scbosgmacp1886 [place] [address]Dr. Airam Tripathi ALP [Catalytic activity/Vol] 161 U/L Critically high 46-116 The [facility] Comment on above: Performed By: #### T 4, BNP, MG, TSH, CMADM, CRP, CMP ####[facility] Ffsflhjhfz924[address] [place], [place] [address]Dr. Airam Tripathi ALT [Catalytic activity/Vol] 21 U/L Normal 14-59 [facility] Comment on above: Performed By: #### T 4, BNP, MG, TSH, CMADM, CRP, CMP ####[facility] Edeecnlhza5187[address] [place], [place] [address]Dr. Airam Tripathi Anion gap [Moles/Vol] 12.6 mmol/L Normal Th e [facility] Comment on above: Performed By: #### T 4, BNP, MG, TSH, CMADM, CRP, CMP ####[facility] Mzyiulotzv8956 [place] [address]Dr. Selenaneil Tripathi AST [Catalytic activity/Vol] 30 U/L Normal 15-37 The [facility] Comment on above: Performed By: #### T 4, BNP, MG, TSH, CMADM, CRP, CMP ####[facility] Supsjwxkqk9336 [place] [address]Dr. Airam Tripathi Bilirubin [Mass/Vol] 0.3 mg/dL Normal 0.2-1.0 The [facility] Comment on above: Performed By: #### T 4, BNP, MG, TSH, CMADM, CRP, CMP ####[facility] Ubvyppokiy5043 [place] [address]Dr. Airam Tripathi Calcium [Mass/Vol] 8.8 mg/dL Normal 8.5-10.1 The [facility] Comment on above: Performed By: #### T 4, BNP, MG, TSH, CMADM, CRP, CMP ####[facility] Bghtkougea8594 [place] [address]Dr. Airam Tripathi Chloride [Moles/Vol] 91 mmol/L Critically low 98-107 The [facility] Comment on above: Performed By: #### T 4, BNP, MG, TSH, CMADM, CRP, CMP ####[facility] Pdmehacamt1625[address] [place], [place] [address]Dr. Airam Tripathi CO2 [Moles/Vol] 26.9 mmol/L Normal 21.0-32.0 The [facility] Comment on above: Performed By: #### T 4, BNP, MG, TSH, CMADM, CRP, CMP ####[facility] Benvzztdir24224[address] [place], [place] [address]Dr. Airam Tripathi Creatinine [Mass/Vol] 1.83 mg/dL Critically high 0.55-1.02 The [facility] Comment on above: Performed By: #### T 4, BNP, MG, TSH, CMADM, CRP, CMP ####[facility] Yfvsgqxwwv545[address] [place], [place] [address]Dr. Airam Tripathi EGFR-AF QATARI 34 mL/min/1.73m2 Critically low >=60 The [facility] Comment on above: Performed By: #### T 4, BNP, MG, TSH, CMADM, CRP, CMP ####[facility] Mnubfdmorp1133[address] [place], [place] [address]Dr. Airam Tripathi EGFR-NON AF QATARI 28 mL/min/1.73m2 Critically low >=60 The [facility] Comment on above: Performed By: #### T 4, BNP, MG, TSH, CMADM, CRP, CMP ####[facility] Ldfbvatotg293[address] [place], [place] [address]Dr. Airam Tripathi Globulin (S) [Mass/Vol] 3.5 g/dL Normal The [facility] Comment on above: Performed By: #### T 4, BNP, MG, TSH, CMADM, CRP, CMP ####[facility] Gmmwsniudq954[address] [place], [place] [address]Dr. Airam Tripathi Glucose [Mass/Vol] 96 mg/dL Normal 74-106 The [facility] Comment on above: Performed By: #### T 4, BNP, MG, TSH, CMADM, CRP, CMP ####[facility] Xunlnyxtxi6502 [place] [address]Dr. Airam Tripathi Potassium [Moles/Vol] 4.5 mmol/L Normal 3.5-5.1 The [facility] Comment on above: Performed By: #### T 4, BNP, MG, TSH, CMADM, CRP, CMP ####[facility] Hcilkgwetg3781 [place] [address]Dr. Airam Tripathi Protein [Mass/Vol] 7.3 g/dL Normal 6.4-8.2 The [facility] Comment on above: Performed By: #### T 4, BNP, MG, TSH, CMADM, CRP, CMP ####[facility] Oexxbleusn1080[address] [place], [place] [address]Dr. Airam Tripathi Sodium [Moles/Vol] 126 mmol/L Critically low 136-145 Th [facility] Comment on above: Performed By: #### T 4, BNP, MG, TSH, CMADM, CRP, CMP ####[facility] Rjzzhueafk39[address] [place], [place] [address]Dr. Airam Tripathi Urea nitrogen [Mass/Vol] 34.0 mg/dL Critically high 7.0-18.0 The [facility] Comment on above: Performed By: #### T 4, BNP, MG, TSH, CMADM, CRP, CMP ####[facility] Rvndnkxgtp0034[address] [place], [place] [address]Dr. Airam Tripathi Urea nitrogen/Creatinine [Mass ratio] 18.6 mg/mg Normal The [facility] Comment on above: Performed By: #### T 4, BNP, MG, TSH, CMADM, CRP, CMP ####[facility] Duejdkfqbq4824[address] [place], [place] [address]Dr. Airam Tripathi Albumin [Mass/Vol] 3.4 g/dL Normal 3.4-5.0 The [facility] Comment on above: Performed By: #### C MP ####[facility] Ikmdslbczq3918 [place] [address]Dr. Airam Deuce Albumin/Globulin [Mass ratio] 1.0 {ratio} Normal [facility] Comment on above: Performed By: #### C MP ####[facility] Ajnadehytr3194 [place] [address]Dr. Airam Deuce ALP [Catalytic activity/Vol] 151 U/L Critically high 46-116 The [facility] Comment on above: Performed By: #### C MP ####[facility] Yolmlmzpuh0178 [place] [address]Dr. Selenaneil Tripathi ALT [Catalytic activity/Vol] 20 U/L Normal 14-59 [facility] Comment on above: Performed By: #### C MP ####[facility] Pnxidysedf7[address] [place], [place] [address]Dr. Airam Tripathi Anion gap [Moles/Vol] 11.7 mmol/L Normal [facility] Comment on above: Performed By: #### C MP ####[facility] Rksyzwybdv458[address] [place], [place] [address]Dr. Selenaneil Tripathi AST [Catalytic activity/Vol] 28 U/L Normal 15-37 [facility] Comment on above: Performed By: #### C MP ####[facility] Urkpmjnbdt094[address] [place], [place] [address]Dr. Airam Tripathi Bilirubin [Mass/Vol] 0.3 mg/dL Normal 0.2-1.0 The [facility] Comment on above: Performed By: #### C MP ####[facility] Liyoakfndj[address] [place], [place] [address]Dr. Airam Tripathi Calcium [Mass/Vol] 8.5 mg/dL Normal 8.5-10.1 The [facility] Comment on above: Performed By: #### C MP ####[facility] Eivhtbujfc12[address] [place], [place] [address]Dr. Airam Tripathi Chloride [Moles/Vol] 91 mmol/L Critically low 98-107 The [facility] Comment on above: Performed By: #### C MP ####[facility] Mbwfrmhmtr[address] [place], [place] [address]Dr. Airam Tripathi CO2 [Moles/Vol] 28.3 mmol/L Normal 21.0-32.0 The [facility] Comment on above: Performed By: #### C MP ####[facility] Idspiyxyur6025 [place] [address]Dr. Airam Tripathi Creatinine [Mass/Vol] 1.68 mg/dL Critically high 0.55-1.02 The [facility] Comment on above: Performed By: #### C MP ####[facility] Iuzjkckpoi7539 [place] [address]Dr. Airam Deuce EGFR-AF QATARI 38 mL/min/1.73m2 Critically low >=60 The [facility] Comment on above: Performed By: #### C MP ####[facility] Mmtvhotgsr5118 [place] [address]Dr. Selenaneil Deuce EGFR-NON AF QATARI 31 mL/min/1.73m2 Critically low >=60 [facility] Comment on above: Performed By: #### C MP ####[facility] Qraqmvzgro299[address] [place], [place] [address]Dr. Airam Deuce Globulin (S) [Mass/Vol] 3.5 g/dL Normal [facility] Comment on above: Performed By: #### C MP ####[facility] Xrywnzzmuq4477[address] [place], [place] [address]Dr. Selenaneil Tripathi Glucose [Mass/Vol] 74 mg/dL Normal 74-106 [facility] Comment on above: Performed By: #### C MP ####[facility] Twzpcqunbc189347 [address] [place], [place] [address]Dr. Airam Deuce Potassium [Moles/Vol] 4.0 mmol/L Normal 3.5-5.1 [facility] Comment on above: Performed By: #### C MP ####[facility] Tekytjlsyr0818[address] [place], [place] [address]Dr. Airam Deuce Protein [Mass/Vol] 6.9 g/dL Normal 6.4-8.2 [facility] Comment on above: Performed By: #### C MP ####[facility] Gyheffzsge0177[address] [place], [place] [address]Dr. Airam Tripathi Sodium [Moles/Vol] 127 mmol/L Critically low 136-145 Th e [facility] Comment on above: Performed By: #### C MP ####[facility] Scpkpbmhqe725747 [address] [place], [place] [address]Dr. Airam Tripathi Urea nitrogen [Mass/Vol] 29.0 mg/dL Critically high 7.0-18.0 [facility] Comment on above: Performed By: #### C MP ####[facility] Sidclfrdsy6428[address] [place], [place] [address]Dr. Airam Tripathi Urea nitrogen/Creatinine [Mass ratio] 17.3 mg/mg Normal [facility] Comment on above: Performed By: #### C MP ####[facility] Zhbqnigrgf644547 [address] [place], [place] [address]Dr. Airam Deuce T4on 06-13-2022 T4 [Mass/Vol] 6.80 ug/dL Normal 4.80-13.90 [facility] Comment on above: Performed By: #### T 4, BNP, MG, TSH, CMADM, CRP, CMP ####[facility] Yibzxcrqam4624[address] [place], [place] [address]Dr. Airam Deuce TSHon 06-13-2022 TSH 0.101 uIU/mL Critically low 0.358-3.74 0 [facility] Comment on above: Performed By: #### T 4, BNP, MG, TSH, CMADM, CRP, CMP ####[facility] Qkrwspivch075147 [address] [place], [place] [address]Dr. Airam Deuce OSMOLALITYon 06-08-2022 Osmolality [Osmolality] 272 mosm/kg Critically low 275-295 [facility] Comment on above: Performed By: #### O SMO ####[facility] Rrjzxzvfsy9320[address] [place], [place] [address]Dr. Airam Deuce CBC AUTO DIFFon 06-06-2022 BASO # 0.0 103/ul Normal 0.0-0.1 [facility] Comment on above: Performed By: #### C BC ####[facility] Bfcpenebeg879547 [address] [place], [place] [address]Dr. Airam Deuce Basophils/100 WBC (Bld) 0.3 % Normal 0.2-2.0 [facility] Comment on above: Performed By: #### C BC ####[facility] Sjjmsztjlq9035[address] [place], [place] [address]Dr. Airam Tripathi EO # 0.2 103/ul Normal 0.0-0.7 [facility] Comment on above: Performed By: #### C BC ####[facility] Vbqubvdqxe119447 [address] [place], [place] [address]Dr. Airam Tripathi Eosinophils/100 WBC (Bld) 2.5 % Normal 0.9-7.0 [facility] Comment on above: Performed By: #### C BC ####[facility] Lhzdbppllk850647 [address] [place], [place] [address]Dr. Airam Tripathi Erythrocyte distribution width (RBC) [Ratio] 12.9 % Normal 11.0-15.0 [facility] Comment on above: Performed By: #### C BC ####[facility] Ltqhfpxrrd277947 [address] [place], [place] [address]Dr. Airam Tripathi Hematocrit (Bld) [Volume fraction] 29.8 % Critically low 36.0-48.0 [facility] Comment on above: Performed By: #### C BC ####[facility] Vlsucvreuq654347 [address] [place], [place] [address]Dr. Airam Tripathi Hemoglobin (Bld) [Mass/Vol] 9.7 g/dL Critically low 12.0-16.0 [facility] Comment on above: Performed By: #### C BC ####[facility] Swkiirehuf423947 [address] [place], [place] [address]Dr. Airam Tripathi IG # 0.03 10e3/ul Normal 0.00-0.03 [facility] Comment on above: Performed By: #### C BC ####[facility] Aaoorhflon20264[address] [place], [place] [address]Dr. Airam Tripathi IG % 0.3 % Normal 0.0-0.5 [facility] Comment on above: Performed By: #### C BC ####[facility] Nrvbdpcrpx093447 [address] [place], [place] [address]Dr. Airam Tripathi LYMPH # 1.3 103/ul Normal 1.2-3.8 [facility] Comment on above: Performed By: #### C BC ####[facility] R[address]jxc[address] [place] [address]DrKianna Tripathi Lymphocytes/100 WBC (Bld) 14.6 % Critically low 20.5-60.0 [facility] Comment on above: Performed By: #### C BC ####[facility] Jequukcvwr9309 [place] [address]DrKianna Tripathi MANUAL DIFF REQ NO Normal [facility] Comment on above: Performed By: #### C BC ####[facility] Uwhhwxklsv1782 [place] [address]DrKianna Tripathi MCH (RBC) [Entitic mass] 30.6 pg Normal 26.7-34.0 [facility] Comment on above: Performed By: #### C BC ####[facility] Htqtvnfiya512347 [address] [place], [place] [address]DrKianna Tripathi MCHC (RBC) [Mass/Vol] 32.6 g/dL Normal 29.9-35.2 [facility] Comment on above: Performed By: #### C BC ####[facility] Fiigplscpz32264[address] [place], [place] [address]DrKianna Tripathi MCV (RBC) [Entitic vol] 94.0 fL Normal 81.0-99.0 [facility] Comment on above: Performed By: #### C BC ####[facility] Vttglfouah678347 [address] [place], [place] [address]DrKianna Tripathi MONO # 0.5 103/ul Normal 0.3-0.8 [facility] Comment on above: Performed By: #### C BC ####[facility] Ofxgrowagg472847 [address] [place], [place] [address]DrKianna Tripathi Monocytes/100 WBC (Bld) 5.7 % Normal 1.7-12.0 [facility] Comment on above: Performed By: #### C BC ####[facility] Bouxlhaeir228147 [address] [place], [place] [address]Dr. Airam Tripathi NEUT # 6.9 103/ul Critically high 1.4-6.5 [facility] Comment on above: Performed By: #### C BC ####[facility] Xzjddznsax4441 [place] [address]Dr. Airam Tripathi Neutrophils/100 WBC (Bld) 76.6 % Critically high 43.0-75.0 [facility] Comment on above: Performed By: #### C BC ####[facility] Oiedypkult150547 [address] [place], [place] [address]Dr. Airam Tripathi Platelet mean volume (Bld) [Entitic vol] 9.2 fL Critically low 9.5-13.5 [facility] Comment on above: Performed By: #### C BC ####[facility] Ffjlxkkzzl899547 [address] [place], [place] [address]Dr. Airam Tripathi PLT 271 103/ul Normal 150-450 [facility] Comment on above: Performed By: #### C BC ####[facility] Hgqkydhrki732847 [address] [place], [place] [address]DrKianna Tripathi RBC 3.17 106/ul Critically low 4.20-5.40 [facility] Comment on above: Performed By: #### C BC ####[facility] Ktxqbngzex5887[address] [place], [place] [address]Dr. Airam Tripathi WBC 9.1 103/ul Normal 4.0-11.0 [facility] Comment on above: Performed By: #### C BC ####[facility] Mesolznfgg009647 [address] [place], [place] [address]Dr. Airam Tripathi PROF 14(COMP METB)on 022 Albumin [Mass/Vol] 3.4 g/dL Normal 3.4-5.0 [facility] Comment on above: Performed By: #### C MP ####[facility] Evagjlwrci057947 [address] [place], [place] [address]Dr. Airam Tripathi Albumin/Globulin [Mass ratio] 1.0 {ratio} Normal [facility] Comment on above: Performed By: #### C MP ####[facility] Mxufapgzvf695847 [address] [place], [place] [address]Dr. Alegria Tripathi ALP [Catalytic activity/Vol] 156 U/L Critically high 46-116 [facility] Comment on above: Performed By: #### C MP ####[facility] Nucfdqgmfs183547 [address] [place], [place] [address]Dr. Airam Tripathi ALT [Catalytic activity/Vol] 18 U/L Normal 14-59 [facility] Comment on above: Performed By: #### C MP ####[facility] Iumtmdhnlk212347 [address] [place], [place] [address]Dr. Airam Deuce Anion gap [Moles/Vol] 10.8 mmol/L Normal [facility] Comment on above: Performed By: #### C MP ####[facility] Vwvcvzovbs680447 [address] [place], [place] [address]Dr. Airam Deuce AST [Catalytic activity/Vol] 27 U/L Normal 15-37 [facility] Comment on above: Performed By: #### C MP ####[facility] Ajeoigieqn564047 [address] [place], [place] [address]Dr. Airam Deuce Bilirubin [Mass/Vol] 0.2 mg/dL Normal 0.2-1.0 [facility] Comment on above: Performed By: #### C MP ####[facility] Thlundcpmz876947 [address] [place], [place] [address]Dr. Airam Deuce Calcium [Mass/Vol] 8.1 mg/dL Critically low 8.5-10.1 [facility] Comment on above: Performed By: #### C MP ####[facility] Ougrrguclg632447 [address] [place], [place] [address]Dr. Airam Deuce Chloride [Moles/Vol] 92 mmol/L Critically low 98-107 [facility] Comment on above: Performed By: #### C MP ####[facility] Vqtvnygxme917447 [address] [place], [place] [address]Dr. Airam Tripathi CO2 [Moles/Vol] 27.4 mmol/L Normal 21.0-32.0 [facility] Comment on above: Performed By: #### C MP ####[facility] Kvshwuszrw586047 [address] [place], [place] [address]Dr. Airam Tripathi Creatinine [Mass/Vol] 1.57 mg/dL Critically high 0.55-1.02 [facility] Comment on above: Performed By: #### C MP ####[facility] Lfvmccqioo[address] [place] [address]Dr. Airam Deuce EGFR-AF QATARI 41 mL/min/1.73m2 Critically low >=60 [facility] Comment on above: Performed By: #### C MP ####[facility] Aoutydlgqg8705 [place] [address]Dr. Selenaneil Deuce EGFR-NON AF QATARI 34 mL/min/1.73m2 Critically low >=60 [facility] Comment on above: Performed By: #### C MP ####[facility] Hgtmbkwidt956147 [address] [place], [place] [address]Dr. Airam Tripathi Globulin (S) [Mass/Vol] 3.4 g/dL Normal [facility] Comment on above: Performed By: #### C MP ####[facility] Pxmfrysdle698147 [address] [place], [place] [address]Dr. Airam Tripathi Glucose [Mass/Vol] 82 mg/dL Normal 74-106 [facility] Comment on above: Performed By: #### C MP ####[facility] Vjupbtlttq493447 [address] [place], [place] [address]Dr. Airam Tripathi Potassium [Moles/Vol] 4.2 mmol/L Normal 3.5-5.1 [facility] Comment on above: Performed By: #### C MP ####[facility] Iwqmhbspmc201547 [address] [place], [place] [address]Dr. Airam Tripathi Protein [Mass/Vol] 6.8 g/dL Normal 6.4-8.2 [facility] Comment on above: Performed By: #### C MP ####[facility] Bxkqehljal861147 [address] [place], [place] [address]Dr. Airam Tripathi Sodium [Moles/Vol] 126 mmol/L Critically low 136-145 Th [facility] Comment on above: Performed By: #### C MP ####[facility] Gibeibarcc226547 [address] [place], [place] [address]Dr. Airam Tripathi Urea nitrogen [Mass/Vol] 35.0 mg/dL Critically high 7.0-18.0 [facility] Comment on above: Performed By: #### C MP ####[facility] Oyjknbrhiv2518[address] [place], [place] [address]Dr. Airam Tripathi Urea nitrogen/Creatinine [Mass ratio] 22.3 mg/mg Normal [facility] Comment on above: Performed By: #### C MP ####[facility] Sujuqendwu295[address] [place], [place] [address]Dr. Airam Tripathi OSMOLALITYon 06-02-2022 Osmolality [Osmolality] 276 mosm/kg Normal 275-295 [facility] Comment on above: Performed By: #### O SMO ####[facility] Geezuvlxkw296847 [address] [place], [place] [address]Dr. Airam Tripathi CBC AUTO DIFFon 06-01-2022 BASO # 0.1 103/ul Normal 0.0-0.1 [facility] Comment on above: Performed By: #### C BC ####[facility] Jbosjxnvbr7033[address] [place], [place] [address]Dr. Airam Tripathi Basophils/100 WBC (Bld) 0.7 % Normal 0.2-2.0 [facility] Comment on above: Performed By: #### C BC ####[facility] Mvicdnlyuz0930[address] [place], [place] [address]Dr. Airam Tripathi EO # 0.3 103/ul Normal 0.0-0.7 [facility] Comment on above: Performed By: #### C BC ####[facility] Krawjuegfj9616[address] [place], [place] [address]Dr. Airam Tripathi Eosinophils/100 WBC (Bld) 3.3 % Normal 0.9-7.0 [facility] Comment on above: Performed By: #### C BC ####[facility] Fdfqtvfajd8795[address] [place], [place] [address]Dr. Airam Tripathi Erythrocyte distribution width (RBC) [Ratio] 13.2 % Normal 11.0-15.0 [facility] Comment on above: Performed By: #### C BC ####[facility] Rfhdtyhnmf500[address] [place], [place] [address]Dr. Airam Deuce Hematocrit (Bld) [Volume fraction] 32.0 % Critically low 36.0-48.0 [facility] Comment on above: Performed By: #### C BC ####[facility] Epjngqnbar7[address] [place] [address]Dr. Airam Tripathi Hemoglobin (Bld) [Mass/Vol] 10.3 g/dL Critically low 12.0-16.0 [facility] Comment on above: Performed By: #### C BC ####[facility] Tujhozlere[address] [place] [address]Dr. Airam Tripathi IG # 0.05 10e3/ul Critically high 0.00-0.03 [facility] Comment on above: Performed By: #### C BC ####[facility] Mcgffqogny8674 [place] [address]Dr. Airam Tripathi IG % 0.7 % Critically high 0.0-0.5 [facility] Comment on above: Performed By: #### C BC ####[facility] Oxzmnoyqso[address] [place] [address]Dr. Airam Tripathi LYMPH # 1.7 103/ul Normal 1.2-3.8 [facility] Comment on above: Performed By: #### C BC ####[facility] Bqjnncxckt5892 [place] [address]DrKianna Tripathi Lymphocytes/100 WBC (Bld) 22.6 % Normal 20.5-60.0 [facility] Comment on above: Performed By: #### C BC ####[facility] Zeockkthuo[address] [place] [address]DrKianna Tripathi MANUAL DIFF REQ NO Normal [facility] Comment on above: Performed By: #### C BC ####[facility] Fonjkojsml6869 [place] [address]DrKianna Tripathi MCH (RBC) [Entitic mass] 30.8 pg Normal 26.7-34.0 [facility] Comment on above: Performed By: #### C BC ####[facility] Febeffbfdn9369 [place] [address]DrKianna Tripathi MCHC (RBC) [Mass/Vol] 32.2 g/dL Normal 29.9-35.2 [facility] Comment on above: Performed By: #### C BC ####[facility] Rybruvdejv8464 [place] [id number]. Airam Deuce MCV (RBC) [Entitic vol] 95.8 fL Normal 81.0-99.0 [facility] Comment on above: Performed By: #### C BC ####[facility] Jgfctmrpyg6041 [place] [address]Dr. Airam Tripathi MONO # 0.6 103/ul Normal 0.3-0.8 [facility] Comment on above: Performed By: #### C BC ####[facility] Mkxyoueiqw980[address] [place], [place] [address]Dr. Airam Tripathi Monocytes/100 WBC (Bld) 8.6 % Normal 1.7-12.0 [facility] Comment on above: Performed By: #### C BC ####[facility] Lbsujenoyy087847 [address] [place], [place] [address]Dr. Airam Tripathi NEUT # 4.8 103/ul Normal 1.4-6.5 [facility] Comment on above: Performed By: #### C BC ####[facility] Oqsypounsd870947 [address] [place], [place] [address]Dr. Airam Tripathi Neutrophils/100 WBC (Bld) 64.1 % Normal 43.0-75.0 [facility] Comment on above: Performed By: #### C BC ####[facility] Zyjbcrjqjo8865[address] [place], [place] [address]Dr. Airam Tripathi Platelet mean volume (Bld) [Entitic vol] 10.0 fL Normal 9.5-13.5 [facility] Comment on above: Performed By: #### C BC ####[facility] Naqawcktjx989[address] [place], [place] [address]Dr. Airam Tripathi PLT 322 103/ul Normal 150-450 [facility] Comment on above: Performed By: #### C BC ####[facility] Yolhdcxuxq[address] [place], [place] [address]Dr. Selenaneil Deuce RBC 3.34 106/ul Critically low 4.20-5.40 [facility] Comment on above: Performed By: #### C BC ####[facility] Rhxbdlxkld2985 [place] [address]Dr. Airam Tripathi WBC 7.5 103/ul Normal 4.0-11.0 [facility] Comment on above: Performed By: #### C BC ####[facility] Lenxpehulv8813 [place] [address]Dr. Airam Tripathi PROF 14(COMP METB)on 022 Albumin [Mass/Vol] 3.5 g/dL Normal 3.4-5.0 [facility] Comment on above: Performed By: #### C MP ####[facility] Wjemobfopx4775[address] [place], [place] [address]Dr. Airam Tripathi Albumin/Globulin [Mass ratio] 1.1 {ratio} Normal [facility] Comment on above: Performed By: #### C MP ####[facility] Vlsshrbjxp202147 [address] [place], [place] [address]Dr. Airam Tripathi ALP [Catalytic activity/Vol] 167 U/L Critically high 46-116 [facility] Comment on above: Performed By: #### C MP ####[facility] Wcbfxrnbtd780347 [address] [place], [place] [address]Dr. Airam Tripathi ALT [Catalytic activity/Vol] 24 U/L Normal 14-59 [facility] Comment on above: Performed By: #### C MP ####[facility] Aaweiejwgp6164 [place] [address]Dr. Airam Tripathi Anion gap [Moles/Vol] 14.1 mmol/L Normal Th [facility] Comment on above: Performed By: #### C MP ####[facility] Ywpvodwkip1310[address] [place], [place] [address]Dr. Airam Tripathi AST [Catalytic activity/Vol] 27 U/L Normal 15-37 [facility] Comment on above: Performed By: #### C MP ####[facility] Njjikefvbb067947 [address] [place], [place] [address]Dr. Airam Tripathi Bilirubin [Mass/Vol] 0.3 mg/dL Normal 0.2-1.0 [facility] Comment on above: Performed By: #### C MP ####[facility] Jhcuxzktui994347 [address] [place], [place] [address]Dr. Airam Deuce Calcium [Mass/Vol] 8.0 mg/dL Critically low 8.5-10.1 Th e [facility] Comment on above: Performed By: #### C MP ####[facility] Uhdcrzctqq4695[address] [place], [place] [address]Dr. Airam Tripathi Chloride [Moles/Vol] 96 mmol/L Critically low 98-107 [facility] Comment on above: Performed By: #### C MP ####[facility] Dyamtdsols4107[address] [place], [place] [address]Dr. Airam Tripathi CO2 [Moles/Vol] 24.6 mmol/L Normal 21.0-32.0 [facility] Comment on above: Performed By: #### C MP ####[facility] Jzdwphxrdy604[address] [place], [place] [address]Dr. Airam Tripathi Creatinine [Mass/Vol] 1.79 mg/dL Critically high 0.55-1.02 [facility] Comment on above: Performed By: #### C MP ####[facility] Kmqgdivbar6510[address] [place], [place] [address]Dr. Airam Tripathi EGFR-AF QATARI 35 mL/min/1.73m2 Critically low >=60 [facility] Comment on above: Performed By: #### C MP ####[facility] Afijvqpwru4030[address] [place], [place] [address]Dr. Airam Tripathi EGFR-NON AF QATARI 29 mL/min/1.73m2 Critically low >=60 [facility] Comment on above: Performed By: #### C MP ####[facility] Gloppgojku7364[address] [place], [place] [address]Dr. Airam Tripathi Globulin (S) [Mass/Vol] 3.3 g/dL Normal [facility] Comment on above: Performed By: #### C MP ####[facility] Wftbtixwve4760[address] [place], [place] [address]Dr. Airam Tripathi Glucose [Mass/Vol] 58 mg/dL Critically low 74-106 Th [facility] Comment on above: Performed By: #### C MP ####[facility] Euscxjyydq27[address] [place] [address]Dr. Airam Tripathi Potassium [Moles/Vol] 4.7 mmol/L Normal 3.5-5.1 [facility] Comment on above: Performed By: #### C MP ####[facility] Dajwwswsbj5279[address] [place], [place] [address]Dr. Airam Tripathi Protein [Mass/Vol] 6.8 g/dL Normal 6.4-8.2 [facility] Comment on above: Performed By: #### C MP ####[facility] Rekdcjicgo897347 [address] [place], [place] [address]Dr. Airam Tripathi Sodium [Moles/Vol] 130 mmol/L Critically low 136-145 Th [facility] Comment on above: Performed By: #### C MP ####[facility] Gsyhmeipqo9825[address] [place], [place] [address]Dr. Airam Tripathi Urea nitrogen [Mass/Vol] 30.0 mg/dL Critically high 7.0-18.0 [facility] Comment on above: Performed By: #### C MP ####[facility] Aqwducefgc3715[address] [place], [place] [address]Dr. Airam Tripathi Urea nitrogen/Creatinine [Mass ratio] 16.8 mg/mg Normal [facility] Comment on above: Performed By: #### C MP ####[facility] Jvoyqsltvb1101[address] [place], [place] [address]Dr. Airam Tripathi OSMOLALITYon 05-28-2022 Osmolality [Osmolality] 275 mosm/kg Normal 275-295 [facility] Comment on above: Performed By: #### O SMO ####[facility] Iuojhrbcce7368[address] [place], [place] [address]Dr. Airam Tripathi CBC AUTO DIFFon 05-26-2022 BASO # 0.0 103/ul Normal 0.0-0.1 [facility] Comment on above: Performed By: #### C BC ####[facility] C[address]ok[address]ix[address] [place] [id number]. Airam Tripathi Basophils/100 WBC (Bld) 0.4 % Normal 0.2-2.0 [facility] Comment on above: Performed By: #### C BC ####[facility] Rympaeswjd3[address] [place] [address]Dr. Airam Tripathi EO # 0.3 103/ul Normal 0.0-0.7 [facility] Comment on above: Performed By: #### C BC ####[facility] Ozserpyvlb350[address] [place], [place] [address]Dr. Airam Tripathi Eosinophils/100 WBC (Bld) 3.2 % Normal 0.9-7.0 [facility] Comment on above: Performed By: #### C BC ####[facility] Niadsituvo945[address] [place], [place] [address]Dr. Airam Tripathi Erythrocyte distribution width (RBC) [Ratio] 13.0 % Normal 11.0-15.0 [facility] Comment on above: Performed By: #### C BC ####[facility] Drpschrkfl7339[address] [place], [place] [address]Dr. Airam Tripathi Hematocrit (Bld) [Volume fraction] 30.4 % Critically low 36.0-48.0 [facility] Comment on above: Performed By: #### C BC ####[facility] Xxacdaqgyi539[address] [place], [place] [address]Dr. Airam Tripathi Hemoglobin (Bld) [Mass/Vol] 9.6 g/dL Critically low 12.0-16.0 [facility] Comment on above: Performed By: #### C BC ####[facility] [facility] [address] [place], [place] [address]Dr. Airam Tripathi IG # 0.06 10e3/ul Critically high 0.00-0.03 [facility] Comment on above: Performed By: #### C BC ####[facility] Qqztdrglhd[address] [place], [place] [address]Dr. Airam Tripathi IG % 0.7 % Critically high 0.0-0.5 [facility] Comment on above: Performed By: #### C BC ####[facility] Vquiqeasou[address] [place] [phone]. Airam Tripathi LYMPH # 1.9 103/ul Normal 1.2-3.8 [facility] Comment on above: Performed By: #### C BC ####[facility] Rkrangwuay3927 [place] [phone]. Airam Tripathi Lymphocytes/100 WBC (Bld) 20.6 % Normal 20.5-60.0 [facility] Comment on above: Performed By: #### C BC ####[facility] Ewjbmmedvo9726 [place] [phone]. Airam Deuce MANUAL DIFF REQ NO Normal [facility] Comment on above: Performed By: #### C BC ####[facility] Rxqnkvvijz6752 [place] [phone]. Airam Tripathi MCH (RBC) [Entitic mass] 30.1 pg Normal 26.7-34.0 [facility] Comment on above: Performed By: #### C BC ####[facility] Nbhuwalxld1292 [place] [phone]. Airam Tripathi MCHC (RBC) [Mass/Vol] 31.6 g/dL Normal 29.9-35.2 [facility] Comment on above: Performed By: #### C BC ####[facility] Zfjqedhfvk3284 [place] [phone]. Airam Tripathi MCV (RBC) [Entitic vol] 95.3 fL Normal 81.0-99.0 [facility] Comment on above: Performed By: #### C BC ####[facility] Jsqscdgmxi3372 [place] [phone]. Airam Tripathi MONO # 0.6 103/ul Normal 0.3-0.8 [facility] Comment on above: Performed By: #### C BC ####[facility] Bspbaivlzc8082 [place] [phone]. Airam Deuce Monocytes/100 WBC (Bld) 6.9 % Normal 1.7-12.0 [facility] Comment on above: Performed By: #### C BC ####[facility] Yfwhojiwty9865 [place] [phone]. Airam Tripathi NEUT # 6.1 103/ul Normal 1.4-6.5 [facility] Comment on above: Performed By: #### C BC ####[facility] Uzhuionxal7718 [place] [phone]. Airam Tripathi Neutrophils/100 WBC (Bld) 68.2 % Normal 43.0-75.0 [facility] Comment on above: Performed By: #### C BC ####[facility] Jcsicwgbcx6248 [place] [phone]. Airam Deuce Platelet mean volume (Bld) [Entitic vol] 9.7 fL Normal 9.5-13.5 The [facility] Comment on above: Performed By: #### C BC ####[facility] Vnixbklijp8616 [place] [phone]. Selenaneil Deuce PLT 317 103/ul Normal 150-450 [facility] Comment on above: Performed By: #### C BC ####[facility] Usmyfsbjkq8535 [place] [phone]. Airam Deuce RBC 3.19 106/ul Critically low 4.20-5.40 [facility] Comment on above: Performed By: #### C BC ####[facility] Yhooxjpszt4532 [place] [phone]. Airam Tripathi WBC 9.0 103/ul Normal 4.0-11.0 [facility] Comment on above: Performed By: #### C BC ####[facility] Gozxalrmim7638 [place] [address]Dr. Airam Tripathi PROF 14(COMP METB)on 022 Albumin [Mass/Vol] 3.4 g/dL Normal 3.4-5.0 [facility] Comment on above: Performed By: #### C MP ####[facility] Wsfpwgthzc8821 [place] [address]Dr. Airam Tripathi Albumin/Globulin [Mass ratio] 1.0 {ratio} Normal [facility] Comment on above: Performed By: #### C MP ####[facility] Wozqxqwakw8948 [place] [phone]. Airam Tripathi ALP [Catalytic activity/Vol] 153 U/L Critically high 46-116 The [facility] Comment on above: Performed By: #### C MP ####[facility] Vcsdbgjmfw8299 [place] [address]Dr. Airam Tripathi ALT [Catalytic activity/Vol] 21 U/L Normal 14-59 [facility] Comment on above: Performed By: #### C MP ####[facility] Kcsrindhwq8[address] [place], [place] [address]Dr. Airam Tripathi Anion gap [Moles/Vol] 13.6 mmol/L Normal [facility] Comment on above: Performed By: #### C MP ####[facility] Oksijyawlp198[address] [place], [place] [address]Dr. Airam Tripathi AST [Catalytic activity/Vol] 23 U/L Normal 15-37 [facility] Comment on above: Performed By: #### C MP ####[facility] Jjmeooqkwb255[address] [place], [place] [address]Dr. Airam Tripathi Bilirubin [Mass/Vol] 0.2 mg/dL Normal 0.2-1.0 [facility] Comment on above: Performed By: #### C MP ####[facility] Aongwylhwv66[address] [place], [place] [address]Dr. Airam Tripathi Calcium [Mass/Vol] 8.4 mg/dL Critically low 8.5-10.1 [facility] Comment on above: Performed By: #### C MP ####[facility] Djlepeerho468[address] [place], [place] [address]Dr. Airam Tripathi Chloride [Moles/Vol] 97 mmol/L Critically low 98-107 [facility] Comment on above: Performed By: #### C MP ####[facility] Cjhfauozss9264[address] [place], [place] [address]Dr. Airam Tripathi CO2 [Moles/Vol] 25.2 mmol/L Normal 21.0-32.0 The [facility] Comment on above: Performed By: #### C MP ####[facility] Spatamilwp9768 [place] [address]Dr. Airam Tripathi Creatinine [Mass/Vol] 1.58 mg/dL Critically high 0.55-1.02 The [facility] Comment on above: Performed By: #### C MP ####[facility] Jngatdntoz5403 [place] [address]Dr. Airam Tripathi EGFR-AF QATARI 40 mL/min/1.73m2 Critically low >=60 The [facility] Comment on above: Performed By: #### C MP ####[facility] Yupyrfbntl294[address] [place], [place] [address]Dr. Airam Tripathi EGFR-NON AF QATARI 33 mL/min/1.73m2 Critically low >=60 The [facility] Comment on above: Performed By: #### C MP ####[facility] Vvypgghnuj3[address] [place], [place] [address]Dr. Airam Tripathi Globulin (S) [Mass/Vol] 3.4 g/dL Normal [facility] Comment on above: Performed By: #### C MP ####[facility] Gjgmmopvpc2923[address] [place], [place] [address]Dr. Airam Tripathi Glucose [Mass/Vol] 74 mg/dL Normal 74-106 [facility] Comment on above: Performed By: #### C MP ####[facility] Dxflligyqg051447 [address] [place], [place] [address]Dr. Airam Tripathi Potassium [Moles/Vol] 4.8 mmol/L Normal 3.5-5.1 [facility] Comment on above: Performed By: #### C MP ####[facility] Nhuykvhcpw75[address] [place], [place] [address]Dr. Airam Tripathi Protein [Mass/Vol] 6.8 g/dL Normal 6.4-8.2 [facility] Comment on above: Performed By: #### C MP ####[facility] Saxpalznux647[address] [place], [place] [address]Dr. Airam Tripathi Sodium [Moles/Vol] 131 mmol/L Critically low 136-145 [facility] Comment on above: Performed By: #### C MP ####[facility] Cpjldyaowj[address] [place], [place] [address]Dr. Airam Tripathi Urea nitrogen [Mass/Vol] 31.0 mg/dL Critically high 7.0-18.0 [facility] Comment on above: Performed By: #### C MP ####[facility] Koyshfwnrb010[address] [place], [place] [address]Dr. Airam Tripathi Urea nitrogen/Creatinine [Mass ratio] 19.6 mg/mg Normal [facility] Comment on above: Performed By: #### C MP ####[facility] Wimmrelcjj856[address] [place], [place] [address]Dr. Airam Tripathi OSMOLALITYon 05-19-2022 Osmolality [Osmolality] 281 mosm/kg Normal 275-295 [facility] Comment on above: Performed By: #### O SMO ####[facility] Eyezmehvql037447 [address] [place], [place] [address]Dr. Airam Tripathi CBC AUTO DIFFon 05-17-2022 BASO # 0.1 103/ul Normal 0.0-0.1 [facility] Comment on above: Performed By: #### C BC ####[facility] Mqhmzjnrwq7[address] [place], [place] [address]Dr. Airam Tripathi Basophils/100 WBC (Bld) 0.6 % Normal 0.2-2.0 [facility] Comment on above: Performed By: #### C BC ####[facility] Vvrqnolofg340[address] [place], [place] [address]Dr. Airam Tripathi EO # 0.2 103/ul Normal 0.0-0.7 [facility] Comment on above: Performed By: #### C BC ####[facility] Azidmqnfnt2728[address] [place], [place] [address]Dr. Airam Tripathi Eosinophils/100 WBC (Bld) 1.9 % Normal 0.9-7.0 [facility] Comment on above: Performed By: #### C BC ####[facility] Hnfthphaoe7980[address] [place], [place] [address]Dr. Airam Tripathi Erythrocyte distribution width (RBC) [Ratio] 12.9 % Normal 11.0-15.0 [facility] Comment on above: Performed By: #### C BC ####[facility] Ksrddgihkt1798 [place] [address]Dr. Selenaneil Tripathi Hematocrit (Bld) [Volume fraction] 32.1 % Critically low 36.0-48.0 [facility] Comment on above: Performed By: #### C BC ####[facility] Gddvqhiltd7779 [place] [address]Dr. Airam Tripathi Hemoglobin (Bld) [Mass/Vol] 9.9 g/dL Critically low 12.0-16.0 [facility] Comment on above: Performed By: #### C BC ####[facility] Suegmxroor4438 [place] [address]Dr. Airam Tripathi IG # 0.05 10e3/ul Critically high 0.00-0.03 [facility] Comment on above: Performed By: #### C BC ####[facility] Yzwpebaeqf1949[address] [place], [place] [address]Dr. Airam Tripathi IG % 0.6 % Critically high 0.0-0.5 [facility] Comment on above: Performed By: #### C BC ####[facility] Movrgucspl77[address] [place], [place] [address]Dr. Airam Tripathi LYMPH # 1.3 103/ul Normal 1.2-3.8 [facility] Comment on above: Performed By: #### C BC ####[facility] Awdddsnubt8835 [place] [address]Dr. Airam Tripathi Lymphocytes/100 WBC (Bld) 15.2 % Critically low 20.5-60.0 [facility] Comment on above: Performed By: #### C BC ####[facility] Ygwliasvtf7112[address] [place], [place] [address]Dr. Airam Tripathi MANUAL DIFF REQ NO Normal [facility] Comment on above: Performed By: #### C BC ####[facility] Ltegsznqjr535[address] [place], [place] [address]Dr. Airam Tripathi MCH (RBC) [Entitic mass] 30.0 pg Normal 26.7-34.0 [facility] Comment on above: Performed By: #### C BC ####[facility] Dtcnccsyeh8999 [place] [phone]. Airam Tripathi MCHC (RBC) [Mass/Vol] 30.8 g/dL Normal 29.9-35.2 [facility] Comment on above: Performed By: #### C BC ####[facility] Lwogigqkfv5571 [place] [phone]. Airam Tripathi MCV (RBC) [Entitic vol] 97.3 fL Normal 81.0-99.0 [facility] Comment on above: Performed By: #### C BC ####[facility] Saadhfmbcd1750 [place] [phone]. Airam Deuce MONO # 0.5 103/ul Normal 0.3-0.8 [facility] Comment on above: Performed By: #### C BC ####[facility] Bzdzveqniw9[address] [place], [place] [address]Dr. Airam Tripathi Monocytes/100 WBC (Bld) 5.4 % Normal 1.7-12.0 [facility] Comment on above: Performed By: #### C BC ####[facility] Ewuwtocaie7[address] [place], [place] [address]Dr. Airam Tripathi NEUT # 6.5 103/ul Normal 1.4-6.5 [facility] Comment on above: Performed By: #### C BC ####[facility] Kdelwixxyx3214 [place] [phone]. Airam Tripathi Neutrophils/100 WBC (Bld) 76.3 % Critically high 43.0-75.0 [facility] Comment on above: Performed By: #### C BC ####[facility] Xtucmkqopm[address] [place], [place] [address]Dr. Airam Tripathi Platelet mean volume (Bld) [Entitic vol] 10.1 fL Normal 9.5-13.5 [facility] Comment on above: Performed By: #### C BC ####[facility] Gwzndeblqo4[address] [place], [place] [address]Dr. Airam Tripathi PLT 284 103/ul Normal 150-450 [facility] Comment on above: Performed By: #### C BC ####[facility] Rfcwotmmjr6030 [place] [phone]. Airam Tripathi RBC 3.30 106/ul Critically low 4.20-5.40 [facility] Comment on above: Performed By: #### C BC ####[facility] Zedszjqkrl9105 [place] [phone]. Airam Tripathi WBC 8.5 103/ul Normal 4.0-11.0 [facility] Comment on above: Performed By: #### C BC ####[facility] Oxfqcjimoz9875 [place] [address]Dr. Airam Tripathi PROF 14(COMP METB)on 022 Albumin [Mass/Vol] 3.1 g/dL Critically low 3.4-5.0 Th e [facility] Comment on above: Performed By: #### C MP ####[facility] Fqgqalnchw[address] [place], [place] [address]Dr. Airam Tripathi Albumin/Globulin [Mass ratio] 0.9 {ratio} Normal [facility] Comment on above: Performed By: #### C MP ####[facility] Ntcorxlqsl9325 [place] [address]Dr. Airam Tripathi ALP [Catalytic activity/Vol] 162 U/L Critically high 46-116 [facility] Comment on above: Performed By: #### C MP ####[facility] Ksjzyvxrxx6342 [place] [address]Dr. Airam Tripathi ALT [Catalytic activity/Vol] 22 U/L Normal 14-59 [facility] Comment on above: Performed By: #### C MP ####[facility] Uskukfdcnf7882 [place] [address]Dr. Airam Tripathi Anion gap [Moles/Vol] 9.4 mmol/L Normal [facility] Comment on above: Performed By: #### C MP ####[facility] Qstziuamtj5412 [place] [address]Dr. Airam Tripathi AST [Catalytic activity/Vol] 26 U/L Normal 15-37 [facility] Comment on above: Performed By: #### C MP ####[facility] Dcikwalyog6181 [place] [phone]. Airam Tripathi Bilirubin [Mass/Vol] 0.2 mg/dL Normal 0.2-1.0 [facility] Comment on above: Performed By: #### C MP ####[facility] Yodlfnicnn6498 [place] [phone]. Airam Tripathi Calcium [Mass/Vol] 8.2 mg/dL Critically low 8.5-10.1 Th [facility] Comment on above: Performed By: #### C MP ####[facility] Bphdpmqiqu3817 [place] [phone]. Airam Tripathi Chloride [Moles/Vol] 103 mmol/L Normal 98-107 [facility] Comment on above: Performed By: #### C MP ####[facility] Qvtkaaaoce1355 [place] [phone]. Airam Tripathi CO2 [Moles/Vol] 24.8 mmol/L Normal 21.0-32.0 [facility] Comment on above: Performed By: #### C MP ####[facility] Ogfhnfdjlq8148 [place] [phone]. Airam Tripathi Creatinine [Mass/Vol] 1.19 mg/dL Critically high 0.55-1.02 [facility] Comment on above: Performed By: #### C MP ####[facility] Djrnqxlqld8676 [place] [phone]. Airam Tripathi EGFR-AF QATARI 56 mL/min/1.73m2 Critically low >=60 The [facility] Comment on above: Performed By: #### C MP ####[facility] Tadkgurvup7938 [place] [phone]. Airam Tripathi EGFR-NON AF QATARI 46 mL/min/1.73m2 Critically low >=60 [facility] Comment on above: Performed By: #### C MP ####[facility] Vumeisycmi8525 [place] [phone]. Airam Tripathi Globulin (S) [Mass/Vol] 3.6 g/dL Normal [facility] Comment on above: Performed By: #### C MP ####[facility] Bmipficoxz5353 [place] [phone]. Airam Tripathi Glucose [Mass/Vol] 75 mg/dL Normal 74-106 [facility] Comment on above: Performed By: #### C MP ####[facility] Qtpkbrcipo9336 [place] [address]Dr. Airam Tripathi Potassium [Moles/Vol] 5.2 mmol/L Critically high 3.5-5.1 [facility] Comment on above: Performed By: #### C MP ####[facility] Pfzccmunft36[address] [place], [place] [address]Dr. Airam Tripathi Protein [Mass/Vol] 6.7 g/dL Normal 6.4-8.2 [facility] Comment on above: Performed By: #### C MP ####[facility] Vlmqbjqfvs60[address] [place], [place] [address]Dr. Airam Tripathi Sodium [Moles/Vol] 132 mmol/L Critically low 136-145 Th [facility] Comment on above: Performed By: #### C MP ####[facility] Libcqzvcfn9315[address] [place], [place] [address]Dr. Airam Tripathi Urea nitrogen [Mass/Vol] 28.0 mg/dL Critically high 7.0-18.0 [facility] Comment on above: Performed By: #### C MP ####[facility] Bcffoigjji20[address] [place], [place] [address]Dr. Airam Tripathi Urea nitrogen/Creatinine [Mass ratio] 23.5 mg/mg Normal [facility] Comment on above: Performed By: #### C MP ####[facility] Omvuroqzrn5349[address] [place], [place] [address]Dr. Airam Tripathi OSMOLALITYon 05-16-2022 Osmolality [Osmolality] 281 mosm/kg Normal 275-295 [facility] Comment on above: Performed By: #### O SMO ####[facility] Cvpmsolita1857[address] [place], [place] [address]Dr. Airam Tripathi CBC AUTO DIFFon 05-13-2022 BASO # 0.1 103/ul Normal 0.0-0.1 [facility] Comment on above: Performed By: #### C BC ####[facility] Gckzlqurlv2728 [place] [phone]. Airam Tripathi Basophils/100 WBC (Bld) 0.5 % Normal 0.2-2.0 [facility] Comment on above: Performed By: #### C BC ####[facility] Rodperaoqo6465[address] [place], [place] [address]Dr. Airam Tripathi EO # 0.2 103/ul Normal 0.0-0.7 [facility] Comment on above: Performed By: #### C BC ####[facility] Yjjarrfntz636[address] [place], [place] [address]Dr. Airam Tripathi Eosinophils/100 WBC (Bld) 2.1 % Normal 0.9-7.0 [facility] Comment on above: Performed By: #### C BC ####[facility] Uqqcfeitur040[address] [place], [place] [address]Dr. Airam Tripathi Erythrocyte distribution width (RBC) [Ratio] 12.9 % Normal 11.0-15.0 [facility] Comment on above: Performed By: #### C BC ####[facility] Afczbrkdbr440[address] [place], [place] [address]Dr. Airam Tripathi Hematocrit (Bld) [Volume fraction] 31.9 % Critically low 36.0-48.0 [facility] Comment on above: Performed By: #### C BC ####[facility] Strhxgcigh15[address] [place], [place] [address]Dr. Airam Tripathi Hemoglobin (Bld) [Mass/Vol] 9.7 g/dL Critically low 12.0-16.0 [facility] Comment on above: Performed By: #### C BC ####[facility] Qoxdxudsan6710[address] [place], [place] [address]Dr. Airam Tripathi IG # 0.06 10e3/ul Critically high 0.00-0.03 [facility] Comment on above: Performed By: #### C BC ####[facility] Kasazxegwn[address] [place], [place] [address]Dr. Airam Tripathi IG % 0.7 % Critically high 0.0-0.5 [facility] Comment on above: Performed By: #### C BC ####[facility] Knjifkuffm3919 [place] [phone]. Airam Deuce LYMPH # 1.9 103/ul Normal 1.2-3.8 [facility] Comment on above: Performed By: #### C BC ####[facility] Kqaztjzmje5864 [place] [phone]. Selenaneil Tripathi Lymphocytes/100 WBC (Bld) 21.1 % Normal 20.5-60.0 [facility] Comment on above: Performed By: #### C BC ####[facility] Hvypyzqlpj3181 [place] [address]Dr. Airam Tripathi MANUAL DIFF REQ NO Normal [facility] Comment on above: Performed By: #### C BC ####[facility] Kykdvfaumo[address] [place], [place] [address]Dr. Airam Tripathi MCH (RBC) [Entitic mass] 29.7 pg Normal 26.7-34.0 [facility] Comment on above: Performed By: #### C BC ####[facility] Dzpqbmbnrw[address] [place], [place] [address]Dr. Airam Deuce MCHC (RBC) [Mass/Vol] 30.4 g/dL Normal 29.9-35.2 [facility] Comment on above: Performed By: #### C BC ####[facility] Armmiuohft6857 [place] [address]Dr. Airam Tripathi MCV (RBC) [Entitic vol] 97.6 fL Normal 81.0-99.0 [facility] Comment on above: Performed By: #### C BC ####[facility] Zffsgklmhb63[address] [place], [place] [address]Dr. Airam Tripathi MONO # 0.6 103/ul Normal 0.3-0.8 [facility] Comment on above: Performed By: #### C BC ####[facility] Zopusfydse2[address] [place], [place] [address]Dr. Airam Tripathi Monocytes/100 WBC (Bld) 6.8 % Normal 1.7-12.0 [facility] Comment on above: Performed By: #### C BC ####[facility] Kvbulusyoj5725 [place] [phone]. Airam Tripathi NEUT # 6.3 103/ul Normal 1.4-6.5 [facility] Comment on above: Performed By: #### C BC ####[facility] Jbuzotoymq9274 [place] [phone]. Airam Tripathi Neutrophils/100 WBC (Bld) 68.8 % Normal 43.0-75.0 [facility] Comment on above: Performed By: #### C BC ####[facility] Hjwwxxakne5341 [place] [address]Dr. Selenaneil Deuce Platelet mean volume (Bld) [Entitic vol] 9.6 fL Normal 9.5-13.5 [facility] Comment on above: Performed By: #### C BC ####[facility] Kevpzrqigw[address] [place], [place] [address]Dr. Airam Tripathi PLT 295 103/ul Normal 150-450 [facility] Comment on above: Performed By: #### C BC ####[facility] Dtbbdjezze8616 [place] [address]Dr. Airam Tripathi RBC 3.27 106/ul Critically low 4.20-5.40 [facility] Comment on above: Performed By: #### C BC ####[facility] Cbtwgjuiyy3253 [place] [address]Dr. Selenaneil Deuce WBC 9.1 103/ul Normal 4.0-11.0 [facility] Comment on above: Performed By: #### C BC ####[facility] Skxthdfzua[address] [place], [place] [address]DrKianna Tripathi PROF 14(COMP METB)on 05-13- 022 Albumin [Mass/Vol] 3.3 g/dL Critically low 3.4-5.0 [facility] Comment on above: Performed By: #### C MP ####[facility] Sarvvqpllt4685 [place] [address]Dr. Airam Tripathi Albumin/Globulin [Mass ratio] 1.0 {ratio} Normal [facility] Comment on above: Performed By: #### C MP ####[facility] Fvzpharinl5030 [place] [address]Dr. Airam Tripathi ALP [Catalytic activity/Vol] 152 U/L Critically high 46-116 [facility] Comment on above: Performed By: #### C MP ####[facility] Ywhhicnbbr7858 [place] [address]Dr. Airam Tripathi ALT [Catalytic activity/Vol] 23 U/L Normal 14-59 [facility] Comment on above: Performed By: #### C MP ####[facility] Aworqaxuly8133 [place] [address]Dr. Airam Tripathi Anion gap [Moles/Vol] 12.0 mmol/L Normal [facility] Comment on above: Performed By: #### C MP ####[facility] Odsfknivjb[address] [place], [place] [address]Dr. Airam Tripathi AST [Catalytic activity/Vol] 25 U/L Normal 15-37 [facility] Comment on above: Performed By: #### C MP ####[facility] Bvvinycvwi23[address] [place], [place] [address]Dr. Airam Tripathi Bilirubin [Mass/Vol] 0.2 mg/dL Normal 0.2-1.0 [facility] Comment on above: Performed By: #### C MP ####[facility] Bztbhjqmei[address] [place], [place] [address]Dr. Airam Tripathi Calcium [Mass/Vol] 8.2 mg/dL Critically low 8.5-10.1 [facility] Comment on above: Performed By: #### C MP ####[facility] Kpzasllflt[address] [place], [place] [address]Dr. Airam Tripathi Chloride [Moles/Vol] 100 mmol/L Normal 98-107 [facility] Comment on above: Performed By: #### C MP ####[facility] Jplgpbojop[address] [place], [place] [address]Dr. Airam Tripathi CO2 [Moles/Vol] 24.8 mmol/L Normal 21.0-32.0 [facility] Comment on above: Performed By: #### C MP ####[facility] Sryofmogsg39[address] [place] [id number]. Airam Tripathi Creatinine [Mass/Vol] 1.46 mg/dL Critically high 0.55-1.02 [facility] Comment on above: Performed By: #### C MP ####[facility] Cepxvisuxg34[address] [place] [id number]. Airam Tripathi EGFR-AF QATARI 44 mL/min/1.73m2 Critically low >=60 [facility] Comment on above: Performed By: #### C MP ####[facility] Ydwmtygmxt5916 [place] [address]Dr. Airam Tripathi EGFR-NON AF QATARI 37 mL/min/1.73m2 Critically low >=60 [facility] Comment on above: Performed By: #### C MP ####[facility] Zjsmnzsyva9220[address] [place], [place] [address]Dr. Airam Tripathi Globulin (S) [Mass/Vol] 3.3 g/dL Normal [facility] Comment on above: Performed By: #### C MP ####[facility] Nmkecdkgyi86[address] [place] [address]Dr. Airam Tripathi Glucose [Mass/Vol] 86 mg/dL Normal 74-106 [facility] Comment on above: Performed By: #### C MP ####[facility] Yzvlanysld0816[address] [place], [place] [address]Dr. Airam Tripathi Potassium [Moles/Vol] 4.8 mmol/L Normal 3.5-5.1 The [facility] Comment on above: Performed By: #### C MP ####[facility] Qnpztotpfk711[address] [place], [place] [address]Dr. Airam Tripathi Protein [Mass/Vol] 6.6 g/dL Normal 6.4-8.2 The [facility] Comment on above: Performed By: #### C MP ####[facility] Dpixolfvsw1132[address] [place], [place] [address]Dr. Airam Tripathi Sodium [Moles/Vol] 132 mmol/L Critically low 136-145 Th [facility] Comment on above: Performed By: #### C MP ####[facility] Ccnhwqoawq1187[address] [place], [place] [address]Dr. Airam Deuce Urea nitrogen [Mass/Vol] 34.0 mg/dL Critically high 7.0-18.0 The [facility] Comment on above: Performed By: #### C MP ####[facility] Yyijfiwpho024[address] [place] [address]Dr. Airam Deuce Urea nitrogen/Creatinine [Mass ratio] 23.3 mg/mg Normal [facility] Comment on above: Performed By: #### C MP ####[facility] Bxbgqoracq4420[address] [place], [place] [address]Dr. Airam Deuce OSMOLALITYon 05-06-2022 Osmolality [Osmolality] 284 mosm/kg Normal 275-295 [facility] Comment on above: Performed By: #### O SMO ####[facility] Gnsvvbizve680347 [address] [place], [place] [address]Dr. Airam Tripathi XR LSPINE MIN 4 VIEWSon XR LSPINE MIN 4 VIEWS Normal [facility] CBC AUTO DIFFon 05-03-2022 BASO # 0.1 103/ul Normal 0.0-0.1 The [facility] Comment on above: Performed By: #### C BC ####[facility] Frkzaayerr7439[address] [place], [place] [address]Dr. Airam Tripathi Basophils/100 WBC (Bld) 0.6 % Normal 0.2-2.0 The [facility] Comment on above: Performed By: #### C BC ####[facility] Xakjkxailh687347 [address] [place], [place] [address]Dr. Airam Tripathi EO # 0.3 103/ul Normal 0.0-0.7 [facility] Comment on above: Performed By: #### C BC ####[facility] Agruwsuivo840[address] [place], [place] [address]Dr. Airam Tripathi Eosinophils/100 WBC (Bld) 4.2 % Normal 0.9-7.0 The [facility] Comment on above: Performed By: #### C BC ####[facility] Kxcllvcyeq44364[address] [place], [place] [address]Dr. Airam Tripathi Erythrocyte distribution width (RBC) [Ratio] 13.4 % Normal 11.0-15.0 The [facility] Comment on above: Performed By: #### C BC ####[facility] Mhdxluksrj2726 [place] [address]Dr. Airam Tripathi Hematocrit (Bld) [Volume fraction] 30.7 % Critically low 36.0-48.0 [facility] Comment on above: Performed By: #### C BC ####[facility] Pserrmfzms242547 [address] [place], [place] [address]Dr. Selenaneil Tripathi Hemoglobin (Bld) [Mass/Vol] 9.6 g/dL Critically low 12.0-16.0 [facility] Comment on above: Performed By: #### C BC ####[facility] Oitlmwdgnv357847 [address] [place], [place] [address]Dr. Ariam Tripathi IG # 0.05 10e3/ul Critically high 0.00-0.03 [facility] Comment on above: Performed By: #### C BC ####[facility] Mymqmrvrkm918[address] [place], [place] [address]Dr. Selenaneil Tripathi IG % 0.6 % Critically high 0.0-0.5 The [facility] Comment on above: Performed By: #### C BC ####[facility] Cftdhgrzlh436[address] [place], [place] [address]Dr. Selenaneil Tripathi LYMPH # 1.9 103/ul Normal 1.2-3.8 The [facility] Comment on above: Performed By: #### C BC ####[facility] Pvzzwmczhr4165[address] [place], [place] [address]DrKianna Tripathi Lymphocytes/100 WBC (Bld) 23.5 % Normal 20.5-60.0 The [facility] Comment on above: Performed By: #### C BC ####[facility] Xrnfouiedj287[address] [place], [place] [address]DrKianna Tripathi MANUAL DIFF REQ NO Normal [facility] Comment on above: Performed By: #### C BC ####[facility] Ttyxawjvcx813347 [address] [place], [place] [address]DrKianna Tripathi MCH (RBC) [Entitic mass] 30.8 pg Normal 26.7-34.0 The [facility] Comment on above: Performed By: #### C BC ####[facility] Jjdpgtvhrj3138 [place] [address]Dr. Airam Tripathi MCHC (RBC) [Mass/Vol] 31.3 g/dL Normal 29.9-35.2 [facility] Comment on above: Performed By: #### C BC ####[facility] Rigjsybbar956747 [address] [place], [place] [address]Dr. Airam Tripathi MCV (RBC) [Entitic vol] 98.4 fL Normal 81.0-99.0 The [facility] Comment on above: Performed By: #### C BC ####[facility] Edfwwhlhlx039847 [address] [place], [place] [address]Dr. Airam Deuce MONO # 0.6 103/ul Normal 0.3-0.8 The [facility] Comment on above: Performed By: #### C BC ####[facility] Wlshelfdhi0232[address] [place], [place] [address]Dr. Selenaneil Tripathi Monocytes/100 WBC (Bld) 7.4 % Normal 1.7-12.0 The [facility] Comment on above: Performed By: #### C BC ####[facility] Oorcqzlagm1288[address] [place], [place] [address]Dr. Airam Tripathi NEUT # 5.0 103/ul Normal 1.4-6.5 The [facility] Comment on above: Performed By: #### C BC ####[facility] Qrvqclkfaa197647 [address] [place], [place] [address]Dr. Selenaneil Tripathi Neutrophils/100 WBC (Bld) 63.7 % Normal 43.0-75.0 The [facility] Comment on above: Performed By: #### C BC ####[facility] Ageloiynxw615547 [address] [place], [place] [address]Dr. Airam Deuce Platelet mean volume (Bld) [Entitic vol] 9.5 fL Normal 9.5-13.5 The [facility] Comment on above: Performed By: #### C BC ####[facility] Kphgikrecx116247 [address] [place], [place] [address]Dr. Selenaneil Deuce PLT 280 103/ul Normal 150-450 The [facility] Comment on above: Performed By: #### C BC ####[facility] Gmcujumxri4642 [place] [address]Dr. Airam Deuce RBC 3.12 106/ul Critically low 4.20-5.40 [facility] Comment on above: Performed By: #### C BC ####[facility] Xxqlvuvlnn8153 [place] [address]Dr. Selenaneil Deuce WBC 7.9 103/ul Normal 4.0-11.0 [facility] Comment on above: Performed By: #### C BC ####[facility] Lxycdpcrhp2948 [place] [address]DrKianna Tripathi PROF 14(COMP METB)on 022 Albumin [Mass/Vol] 3.1 g/dL Critically low 3.4-5.0 [facility] Comment on above: Performed By: #### C MP ####[facility] Gfnxonvvqd8871 [place] [address]Dr. Airam Tripathi Albumin/Globulin [Mass ratio] 0.9 {ratio} Normal [facility] Comment on above: Performed By: #### C MP ####[facility] Qrijihegcf2400 [place] [address]Dr. Airam Tripathi ALP [Catalytic activity/Vol] 140 U/L Critically high 46-116 [facility] Comment on above: Performed By: #### C MP ####[facility] Dwungqshqx4133 [place] [address]Dr. Airam Tripathi ALT [Catalytic activity/Vol] 24 U/L Normal 14-59 [facility] Comment on above: Performed By: #### C MP ####[facility] Iejgifrklo9292 [place] [address]DrKianna Tripathi Anion gap [Moles/Vol] 11.2 mmol/L Normal [facility] Comment on above: Performed By: #### C MP ####[facility] Sbloghglcc4506 [place] [address]Dr. Airam Tripathi AST [Catalytic activity/Vol] 26 U/L Normal 15-37 [facility] Comment on above: Performed By: #### C MP ####[facility] Mrbtsnruct8057 [place] [address]Dr. Selenaneil Deuce Bilirubin [Mass/Vol] 0.2 mg/dL Normal 0.2-1.0 [facility] Comment on above: Performed By: #### C MP ####[facility] Gykhkfnjsh088347 [address] [place], [place] [address]Dr. Airam Tripathi Calcium [Mass/Vol] 8.3 mg/dL Critically low 8.5-10.1 Th [facility] Comment on above: Performed By: #### C MP ####[facility] Smnxhnpikr69024[address] [place], [place] [address]Dr. Airam Tripathi Chloride [Moles/Vol] 101 mmol/L Normal 98-107 [facility] Comment on above: Performed By: #### C MP ####[facility] Bnqvzvlhel583547 [address] [place], [place] [address]Dr. Airam Tripathi CO2 [Moles/Vol] 25.5 mmol/L Normal 21.0-32.0 [facility] Comment on above: Performed By: #### C MP ####[facility] Xchvsuakst459247 [address] [place], [place] [address]Dr. Airam Tripathi Creatinine [Mass/Vol] 1.43 mg/dL Critically high 0.55-1.02 [facility] Comment on above: Performed By: #### C MP ####[facility] Zrzsjmpswf899947 [address] [place], [place] [address]Dr. Airam Tripathi EGFR-AF QATARI 45 mL/min/1.73m2 Critically low >=60 The [facility] Comment on above: Performed By: #### C MP ####[facility] Uurmjdkcda04264[address] [place], [place] [address]Dr. Airam Tripathi EGFR-NON AF QATARI 37 mL/min/1.73m2 Critically low >=60 The [facility] Comment on above: Performed By: #### C MP ####[facility] Njhbhsajlj7829[address] [place], [place] [address]Dr. Airam Tripathi Globulin (S) [Mass/Vol] 3.3 g/dL Normal [facility] Comment on above: Performed By: #### C MP ####[facility] Qhayugfeii514847 [address] [place], [place] [address]Dr. Airam Tripathi Glucose [Mass/Vol] 74 mg/dL Normal 74-106 [facility] Comment on above: Performed By: #### C MP ####[facility] Ncrkfqbefo751047 [address] [place], [place] [address]Dr. Airam Tripathi Potassium [Moles/Vol] 4.7 mmol/L Normal 3.5-5.1 [facility] Comment on above: Performed By: #### C MP ####[facility] Btrehwusfx746747 [address] [place], [place] [address]Dr. Airam Tripathi Protein [Mass/Vol] 6.4 g/dL Normal 6.4-8.2 [facility] Comment on above: Performed By: #### C MP ####[facility] Prncgukucu559[address] [place], [place] [address]Dr. Airam Tripathi Sodium [Moles/Vol] 133 mmol/L Critically low 136-145 Th [facility] Comment on above: Performed By: #### C MP ####[facility] Ashfatakim832547 [address] [place], [place] [address]Dr. Airam Tripathi Urea nitrogen [Mass/Vol] 38.0 mg/dL Critically high 7.0-18.0 [facility] Comment on above: Performed By: #### C MP ####[facility] Uxgkkbbkif263347 [address] [place], [place] [address]Dr. Airam Tripathi Urea nitrogen/Creatinine [Mass ratio] 26.6 mg/mg Normal [facility] Comment on above: Performed By: #### C MP ####[facility] Arbtljofyl6364[address] [place], [place] [address]DrKianna Tripathi OSMOLALITYon 04-29-2022 Osmolality [Osmolality] 292 mosm/kg Normal 275-295 [facility] Comment on above: Performed By: #### O SMO ####[facility] Ezmkxaonwu0830[address] [place], [place] [address]DrKianna Tripathi CBC AUTO DIFFon 04-28-2022 BASO # 0.0 103/ul Normal 0.0-0.1 [facility] Comment on above: Performed By: #### C BC ####[facility] Ngilymagar2564 [place] [address]Dr. Airam Tripathi Basophils/100 WBC (Bld) 0.5 % Normal 0.2-2.0 The [facility] Comment on above: Performed By: #### C BC ####[facility] Dmrpxcpwsb3824[address] [place], [place] [address]Dr. Airam Tripathi EO # 0.2 103/ul Normal 0.0-0.7 The [facility] Comment on above: Performed By: #### C BC ####[facility] Jwbfqflfpd532147 [address] [place], [place] [address]Dr. Airam Tripathi Eosinophils/100 WBC (Bld) 3.4 % Normal 0.9-7.0 The [facility] Comment on above: Performed By: #### C BC ####[facility] Igncunbqkk314[address] [place], [place] [address]Dr. Airam Tripathi Erythrocyte distribution width (RBC) [Ratio] 13.4 % Normal 11.0-15.0 [facility] Comment on above: Performed By: #### C BC ####[facility] Pipgocvraq9620[address] [place], [place] [address]Dr. Airam Tripathi Hematocrit (Bld) [Volume fraction] 31.6 % Critically low 36.0-48.0 The [facility] Comment on above: Performed By: #### C BC ####[facility] Nvauktpvqa9933[address] [place], [place] [address]Dr. Airam Tripahti Hemoglobin (Bld) [Mass/Vol] 9.8 g/dL Critically low 12.0-16.0 The [facility] Comment on above: Performed By: #### C BC ####[facility] Nedgxiboib3767[address] [place], [place] [address]Dr. Airam Tripathi IG # 0.02 10e3/ul Normal 0.00-0.03 The [facility] Comment on above: Performed By: #### C BC ####[facility] Gkkowcfbga3320 [place] [id number]. Selenaneil Tripathi IG % 0.3 % Normal 0.0-0.5 The [facility] Comment on above: Performed By: #### C BC ####[facility] Umbmalvdca5972 [place] [address]Dr. Selenaneil Tripathi LYMPH # 1.3 103/ul Normal 1.2-3.8 The [facility] Comment on above: Performed By: #### C BC ####[facility] Olawvykhvk7633 [place] [address]Dr. Selenaneil Tripathi Lymphocytes/100 WBC (Bld) 21.7 % Normal 20.5-60.0 The [facility] Comment on above: Performed By: #### C BC ####[facility] Bdvrvmejqd8138 [place] [address]Dr. Selenaneil Tripathi MANUAL DIFF REQ NO Normal [facility] Comment on above: Performed By: #### C BC ####[facility] Quaafwceza6862 [place] [address]Dr. Airam Deuce MCH (RBC) [Entitic mass] 30.7 pg Normal 26.7-34.0 The [facility] Comment on above: Performed By: #### C BC ####[facility] Dmemosufuz5485[address] [place], [place] [address]Dr. Airam Deuce MCHC (RBC) [Mass/Vol] 31.0 g/dL Normal 29.9-35.2 The [facility] Comment on above: Performed By: #### C BC ####[facility] Rhequtetuz6295 [place] [address]Dr. Selenaneil Tripathi MCV (RBC) [Entitic vol] 99.1 fL Critically high 81.0-99.0 The [facility] Comment on above: Performed By: #### C BC ####[facility] Gthynumqqh1330[address] [place], [place] [address]Dr. Airam Tripathi MONO # 0.3 103/ul Normal 0.3-0.8 The [facility] Comment on above: Performed By: #### C BC ####[facility] Wlnwvunftt4665[address] [place], [place] [address]Dr. Airam Tripathi Monocytes/100 WBC (Bld) 5.2 % Normal 1.7-12.0 The [facility] Comment on above: Performed By: #### C BC ####[facility] Uuuwkziuwj2719 [place] [id number]. Airam Tripathi NEUT # 4.1 103/ul Normal 1.4-6.5 The [facility] Comment on above: Performed By: #### C BC ####[facility] Afavtvrgdl9796 [place] [address]Dr. Airam Tripathi Neutrophils/100 WBC (Bld) 68.9 % Normal 43.0-75.0 The [facility] Comment on above: Performed By: #### C BC ####[facility] Bzuklmgxub7104 [place] [address]Dr. Airam Tripathi Platelet mean volume (Bld) [Entitic vol] 9.8 fL Normal 9.5-13.5 The [facility] Comment on above: Performed By: #### C BC ####[facility] Ihkwwvfwoq4096 [place] [address]Dr. Airam Tripathi PLT 329 103/ul Normal 150-450 [facility] Comment on above: Performed By: #### C BC ####[facility] Zynhgmtuhh7563 [place] [address]Dr. Airam Tripathi RBC 3.19 106/ul Critically low 4.20-5.40 The [facility] Comment on above: Performed By: #### C BC ####[facility] Enragqqziu8581 [place] [id number]. Airam Tripathi WBC 5.9 103/ul Normal 4.0-11.0 The [facility] Comment on above: Performed By: #### C BC ####[facility] Ffutkrbzjf3320 [place] [address]Dr. Airam Deuce PROF 14(COMP METB)on 022 Albumin [Mass/Vol] 2.9 g/dL Critically low 3.4-5.0 Th [facility] Comment on above: Performed By: #### C MP ####[facility] Aljhzapyan5700 [place] [address]Dr. Airam Tripathi Albumin/Globulin [Mass ratio] 0.9 {ratio} Normal [facility] Comment on above: Performed By: #### C MP ####[facility] Fwbcumicvl458[address] [place], [place] [address]Dr. Airam Tripathi ALP [Catalytic activity/Vol] 127 U/L Critically high 46-116 [facility] Comment on above: Performed By: #### C MP ####[facility] Hylhpbrrfb140347 [address] [place], [place] [address]Dr. Aiarm Tripathi ALT [Catalytic activity/Vol] 22 U/L Normal 14-59 [facility] Comment on above: Performed By: #### C MP ####[facility] Fiprzxvkyo0864[address] [place], [place] [address]Dr. Airam Tripathi Anion gap [Moles/Vol] 6.7 mmol/L Normal [facility] Comment on above: Performed By: #### C MP ####[facility] Bhhnullznc999[address] [place], [place] [address]Dr. Airam Tripathi AST [Catalytic activity/Vol] 24 U/L Normal 15-37 The [facility] Comment on above: Performed By: #### C MP ####[facility] Eluhktkgqs499347 [address] [place], [place] [address]Dr. Airam Tripathi Bilirubin [Mass/Vol] 0.2 mg/dL Normal 0.2-1.0 [facility] Comment on above: Performed By: #### C MP ####[facility] Vwmyjpnfic200[address] [place], [place] [address]Dr. Airam Tripathi Calcium [Mass/Vol] 8.2 mg/dL Critically low 8.5-10.1 Th e [facility] Comment on above: Performed By: #### C MP ####[facility] Meciaeubke8764[address] [place], [place] [address]Dr. Airam Tripathi Chloride [Moles/Vol] 105 mmol/L Normal 98-107 The [facility] Comment on above: Performed By: #### C MP ####[facility] Bedjzodylv780647 [address] [place], [place] [address]Dr. Airam Tripathi CO2 [Moles/Vol] 28.2 mmol/L Normal 21.0-32.0 [facility] Comment on above: Performed By: #### C MP ####[facility] Igktsioync3893 [place] [address]Dr. Airam Tripathi Creatinine [Mass/Vol] 1.22 mg/dL Critically high 0.55-1.02 [facility] Comment on above: Performed By: #### C MP ####[facility] Pdujfzsdos1800[address] [place], [place] [address]Dr. Airam Deuce EGFR-AF QATARI 54 mL/min/1.73m2 Critically low >=60 [facility] Comment on above: Performed By: #### C MP ####[facility] Giyzclangj7795[address] [place], [place] [address]Dr. Airam Deuce EGFR-NON AF QATARI 45 mL/min/1.73m2 Critically low >=60 [facility] Comment on above: Performed By: #### C MP ####[facility] Ycfqruywvl932247 [address] [place], [place] [address]Dr. Airam Deuce Globulin (S) [Mass/Vol] 3.2 g/dL Normal [facility] Comment on above: Performed By: #### C MP ####[facility] Xneuxzsjuq6425[address] [place], [place] [address]Dr. Airam Deuce Glucose [Mass/Vol] 77 mg/dL Normal 74-106 The [facility] Comment on above: Performed By: #### C MP ####[facility] Nnipsrpxwz085947 [address] [place], [place] [address]Dr. Airam Deuce Potassium [Moles/Vol] 4.9 mmol/L Normal 3.5-5.1 The [facility] Comment on above: Performed By: #### C MP ####[facility] Tcxtybngtz306[address] [place], [place] [address]Dr. Airam Deuce Protein [Mass/Vol] 6.1 g/dL Critically low 6.4-8.2 Th [facility] Comment on above: Performed By: #### C MP ####[facility] Dglaxuarjd5239[address] [place], [place] [address]Dr. Airam Tripathi Sodium [Moles/Vol] 135 mmol/L Critically low 136-145 Th [facility] Comment on above: Performed By: #### C MP ####[facility] Fijablqpag[address] [place], [place] [address]Dr. Airam Tripathi Urea nitrogen [Mass/Vol] 30.0 mg/dL Critically high 7.0-18.0 [facility] Comment on above: Performed By: #### C MP ####[facility] Iszvdpaaub7315[address] [place], [place] [address]Dr. Airam Tripathi Urea nitrogen/Creatinine [Mass ratio] 24.6 mg/mg Normal [facility] Comment on above: Performed By: #### C MP ####[facility] Yubnuaenlj118[address] [place], [place] [address]Dr. Airam Tripathi OSMOLALITYon 04-23-2022 Osmolality [Osmolality] 289 mosm/kg Normal 275-295 [facility] Comment on above: Performed By: #### O SMO ####[facility] Uzbzrblapp1033[address] [place], [place] [address]Dr. Airam Tripathi CBC AUTO DIFFon 04-20-2022 BASO # 0.0 103/ul Normal 0.0-0.1 [facility] Comment on above: Performed By: #### C BC ####[facility] Qskcouifsn525[address] [place], [place] [address]Dr. Airam Tripathi Basophils/100 WBC (Bld) 0.4 % Normal 0.2-2.0 The [facility] Comment on above: Performed By: #### C BC ####[facility] Myyhbmtrsw[address] [place], [place] [address]Dr. Airam Tripathi EO # 0.2 103/ul Normal 0.0-0.7 The [facility] Comment on above: Performed By: #### C BC ####[facility] Mqdwwkbxlu9[address] [place], [place] [address]Dr. Airam Deuce Eosinophils/100 WBC (Bld) 3.1 % Normal 0.9-7.0 The [facility] Comment on above: Performed By: #### C BC ####[facility] Knqejnymzn6414[address] [place], [place] [address]Dr. Airam Tripathi Erythrocyte distribution width (RBC) [Ratio] 13.8 % Normal 11.0-15.0 [facility] [facility] Comment on above: Performed By: #### C BC ####[facility] Rkvidyzkga[address] [place], [place] [address]Dr. Airam Tripathi Hematocrit (Bld) [Volume fraction] 29.5 % Critically low 36.0-48.0 [facility] Comment on above: Performed By: #### C BC ####[facility] Wpekzcqevn[address] [place], [place] [address]Dr. Airam Tripathi Hemoglobin (Bld) [Mass/Vol] 9.2 g/dL Critically low 12.0-16.0 [facility] Comment on above: Performed By: #### C BC ####[facility] Rmckeajqeh37[address] [place], [place] [address]Dr. Airam Tripathi IG # 0.02 10e3/ul Normal 0.00-0.03 [facility] Comment on above: Performed By: #### C BC ####[facility] Skhcxmclfc5840[address] [place], [place] [address]Dr. Selenaneil Tripathi IG % 0.4 % Normal 0.0-0.5 [facility] Comment on above: Performed By: #### C BC ####[facility] Cgbfgviqzn582[address] [place], [place] [address]Dr. Airam Tripathi LYMPH # 0.8 103/ul Critically low 1.2-3.8 [facility] Comment on above: Performed By: #### C BC ####[facility] Juwhwghiir075[address] [place], [place] [address]Dr. Airam Tripathi Lymphocytes/100 WBC (Bld) 14.0 % Critically low 20.5-60.0 [facility] Comment on above: Performed By: #### C BC ####[facility] Eevrejhvfm788[address] [place], [place] [address]Dr. Selenaenil Tripathi MANUAL DIFF REQ NO Normal [facility] Comment on above: Performed By: #### C BC ####[facility] Thvddeolep264[address] [place], [place] [address]Dr. Airam Tripathi MCH (RBC) [Entitic mass] 30.4 pg Normal 26.7-34.0 [facility] Comment on above: Performed By: #### C BC ####[facility] Xfunxkdvpr89[address] [place] [phone]. Airam Tripathi MCHC (RBC) [Mass/Vol] 31.2 g/dL Normal 29.9-35.2 [facility] Comment on above: Performed By: #### C BC ####[facility] Ltsjsreuay9[address] [place] [address]Dr. Airam Tripathi MCV (RBC) [Entitic vol] 97.4 fL Normal 81.0-99.0 [facility] Comment on above: Performed By: #### C BC ####[facility] Wxlawvtgzc0827 [place] [address]Dr. Airam Tripathi MONO # 0.3 103/ul Normal 0.3-0.8 [facility] Comment on above: Performed By: #### C BC ####[facility] Iywuppgiip1432 [place] [address]Dr. Airam Deuce Monocytes/100 WBC (Bld) 5.6 % Normal 1.7-12.0 [facility] Comment on above: Performed By: #### C BC ####[facility] Jgkocealmk3590 [place] [address]Dr. Airam Tripathi NEUT # 4.2 103/ul Normal 1.4-6.5 [facility] Comment on above: Performed By: #### C BC ####[facility] Ukfmzluhwj2327 [place] [address]Dr. Airam Deuce Neutrophils/100 WBC (Bld) 76.5 % Critically high 43.0-75.0 [facility] Comment on above: Performed By: #### C BC ####[facility] Nizkqqwdao3205 [place] [address]Dr. Airam Deuce Platelet mean volume (Bld) [Entitic vol] 9.4 fL Critically low 9.5-13.5 [facility] Comment on above: Performed By: #### C BC ####[facility] Gdgdhoifgk3678 [place] [phone]. Selenaneil Deuce PLT 250 103/ul Normal 150-450 [facility] Comment on above: Performed By: #### C BC ####[facility] Flfeiqhdzk2015 [place] [phone]. Airam Tripathi RBC 3.03 106/ul Critically low 4.20-5.40 [facility] Comment on above: Performed By: #### C BC ####[facility] Jhwaahanst7438 [place] [address]Dr. Airam Tripathi WBC 5.5 103/ul Normal 4.0-11.0 [facility] Comment on above: Performed By: #### C BC ####[facility] Abkfcwlbyx1451 [place] [address]Dr. Airam Tripathi PROF 14(COMP METB)on 022 Albumin [Mass/Vol] 2.7 g/dL Critically low 3.4-5.0 [facility] Comment on above: Performed By: #### C MP ####[facility] Tuhuxzxbzf2574 [place] [address]Dr. Airam Tripathi Albumin/Globulin [Mass ratio] 0.9 {ratio} Normal [facility] Comment on above: Performed By: #### C MP ####[facility] Ynvgplpaxf9001 [place] [address]Dr. Airam Tripathi ALP [Catalytic activity/Vol] 113 U/L Normal 46-116 [facility] Comment on above: Performed By: #### C MP ####[facility] Aiggwqslqs7064 [place] [address]Dr. Airam Tripathi ALT [Catalytic activity/Vol] 20 U/L Normal 14-59 [facility] Comment on above: Performed By: #### C MP ####[facility] Ktbbxlglvm4536 [place] [address]Dr. Airam Tripathi Anion gap [Moles/Vol] 11.1 mmol/L Normal [facility] Comment on above: Performed By: #### C MP ####[facility] Ojmwczzhki6191 [place] [address]Dr. Airam Tripathi AST [Catalytic activity/Vol] 19 U/L Normal 15-37 [facility] Comment on above: Performed By: #### C MP ####[facility] Kzrizojhzz0124 [place] [address]Dr. Airam Tripathi Bilirubin [Mass/Vol] 0.2 mg/dL Normal 0.2-1.0 [facility] Comment on above: Performed By: #### C MP ####[facility] Xxwaabwcnw7105[address] [place], [place] [address]Dr. Airam Tripathi Calcium [Mass/Vol] 8.3 mg/dL Critically low 8.5-10.1 Th e [facility] Comment on above: Performed By: #### C MP ####[facility] Busksupdqe1860[address] [place], [place] [address]Dr. Airam Tripathi Chloride [Moles/Vol] 104 mmol/L Normal 98-107 [facility] Comment on above: Performed By: #### C MP ####[facility] Snqslwlejy3624[address] [place], [place] [address]Dr. Airam Tripathi CO2 [Moles/Vol] 25.3 mmol/L Normal 21.0-32.0 [facility] Comment on above: Performed By: #### C MP ####[facility] Herozaveow229[address] [place], [place] [address]Dr. Airam Tripathi Creatinine [Mass/Vol] 1.33 mg/dL Critically high 0.55-1.02 [facility] Comment on above: Performed By: #### C MP ####[facility] Lqvspxshtf0105[address] [place], [place] [address]Dr. Airam Tripathi EGFR-AF QATARI 49 mL/min/1.73m2 Critically low >=60 The [facility] Comment on above: Performed By: #### C MP ####[facility] Wntessgqsl185047 [address] [place], [place] [address]Dr. Airam Tripathi EGFR-NON AF QATARI 41 mL/min/1.73m2 Critically low >=60 The [facility] Comment on above: Performed By: #### C MP ####[facility] Udblmmalgq4745 [place] [address]Dr. Airam Tripathi Globulin (S) [Mass/Vol] 3.1 g/dL Normal [facility] Comment on above: Performed By: #### C MP ####[facility] Sbiypklhdj2023 [place] [address]Dr. Airam Tripathi Glucose [Mass/Vol] 88 mg/dL Normal 74-106 [facility] Comment on above: Performed By: #### C MP ####[facility] Oepunoaloa239[address] [place], [place] [address]Dr. Airam Tripathi Potassium [Moles/Vol] 5.4 mmol/L Critically high 3.5-5.1 [facility] Comment on above: Performed By: #### C MP ####[facility] Xvnnqjsyze328247 [address] [place], [place] [address]Dr. Airam Tripathi Protein [Mass/Vol] 5.8 g/dL Critically low 6.4-8.2 [facility] Comment on above: Performed By: #### C MP ####[facility] Ipqeylcgkr623[address] [place], [place] [address]Dr. Airam Tripathi Sodium [Moles/Vol] 135 mmol/L Critically low 136-145 [facility] Comment on above: Performed By: #### C MP ####[facility] Msvqfadipp443347 [address] [place], [place] [address]Dr. Airam Tripathi Urea nitrogen [Mass/Vol] 38.0 mg/dL Critically high 7.0-18.0 [facility] Comment on above: Performed By: #### C MP ####[facility] Kcnjyfhsyc311[address] [place], [place] [address]Dr. Airam Tripathi Urea nitrogen/Creatinine [Mass ratio] 28.6 mg/mg Normal [facility] Comment on above: Performed By: #### C MP ####[facility] Eopdntpbnj309247 [address] [place], [place] [address]Dr. Airam Tripathi OSMOLALITYon 04-15-2022 Osmolality [Osmolality] 284 mosm/kg Normal 275-295 [facility] Comment on above: Performed By: #### O SMO ####[facility] Drnfkvukaw9117 [place] [address]Dr. Airam Tripathi CBC AUTO DIFFon 04-14-2022 BASO # 0.0 103/ul Normal 0.0-0.1 [facility] Comment on above: Performed By: #### C BC ####[facility] Gbtaekwrgy095[address] [place], [place] [address]Dr. Airam Deuce Basophils/100 WBC (Bld) 0.5 % Normal 0.2-2.0 [facility] Comment on above: Performed By: #### C BC ####[facility] Oqjywkyctq218347 [address] [place], [place] [address]Dr. Selenaneil Tripathi EO # 0.3 103/ul Normal 0.0-0.7 [facility] Comment on above: Performed By: #### C BC ####[facility] Ofblhcdqkb278347 [address] [place], [place] [address]Dr. Selenaneil Tripathi Eosinophils/100 WBC (Bld) 3.6 % Normal 0.9-7.0 [facility] Comment on above: Performed By: #### C BC ####[facility] Mcijehivno6059[address] [place], [place] [address]Dr. Selenaneil Tripathi Erythrocyte distribution width (RBC) [Ratio] 13.4 % Normal 11.0-15.0 [facility] Comment on above: Performed By: #### C BC ####[facility] Djcwksblgr432847 [address] [place], [place] [address]Dr. Selenaneil Tripathi Hematocrit (Bld) [Volume fraction] 30.6 % Critically low 36.0-48.0 [facility] Comment on above: Performed By: #### C BC ####[facility] Kfaxsmknld224347 [address] [place], [place] [address]Dr. Selenaneil Tripathi Hemoglobin (Bld) [Mass/Vol] 9.7 g/dL Critically low 12.0-16.0 [facility] Comment on above: Performed By: #### C BC ####[facility] Opamgztskw197847 [address] [place], [place] [address]Dr. Airam Tripathi IG # 0.08 10e3/ul Critically high 0.00-0.03 [facility] Comment on above: Performed By: #### C BC ####[facility] Izmzkqumwz5193 [place] [phone]. Airam Tripathi IG % 0.9 % Critically high 0.0-0.5 [facility] Comment on above: Performed By: #### C BC ####[facility] Pagfshbhsq2680 [place] [phone]. Airam Tripathi LYMPH # 2.1 103/ul Normal 1.2-3.8 [facility] Comment on above: Performed By: #### C BC ####[facility] Ufynrxahur1983 [place] [address]Dr. Airam Tripathi Lymphocytes/100 WBC (Bld) 24.2 % Normal 20.5-60.0 [facility] Comment on above: Performed By: #### C BC ####[facility] Jpbfdlkatp417[address] [place], [place] [address]Dr. Airam Tripathi MANUAL DIFF REQ NO Normal [facility] Comment on above: Performed By: #### C BC ####[facility] Lbrdvhuljw[address] [place], [place] [address]Dr. Airam Tripathi MCH (RBC) [Entitic mass] 30.4 pg Normal 26.7-34.0 [facility] Comment on above: Performed By: #### C BC ####[facility] Fodzkcncjq8[address] [place], [place] [address]Dr. Airam Tripathi MCHC (RBC) [Mass/Vol] 31.7 g/dL Normal 29.9-35.2 [facility] Comment on above: Performed By: #### C BC ####[facility] Gquqqtgsxc[address] [place], [place] [address]Dr. Airam Tripathi MCV (RBC) [Entitic vol] 95.9 fL Normal 81.0-99.0 [facility] Comment on above: Performed By: #### C BC ####[facility] Rggwgfbkbi7586[address] [place], [place] [address]Dr. Airam Deuce MONO # 0.5 103/ul Normal 0.3-0.8 [facility] Comment on above: Performed By: #### C BC ####[facility] Hsznxucigi8596 [place] [phone]. Airam Tripathi Monocytes/100 WBC (Bld) 6.0 % Normal 1.7-12.0 [facility] Comment on above: Performed By: #### C BC ####[facility] Fsairkkhnb6906 [place] [phone]. Airam Tripathi NEUT # 5.6 103/ul Normal 1.4-6.5 [facility] Comment on above: Performed By: #### C BC ####[facility] Cawfrklqka2734 [place] [phone]. Airam Tripathi Neutrophils/100 WBC (Bld) 64.8 % Normal 43.0-75.0 [facility] Comment on above: Performed By: #### C BC ####[facility] Ymbmyacjkf3956 [place] [address]Dr. Selenaneil Tripathi Platelet mean volume (Bld) [Entitic vol] 9.2 fL Critically low 9.5-13.5 [facility] Comment on above: Performed By: #### C BC ####[facility] Vugmhpdutd3329 [place] [address]Dr. Airam Tripathi PLT 296 103/ul Normal 150-450 [facility] Comment on above: Performed By: #### C BC ####[facility] Otinxcauyi2642 [place] [phone]. Airam Tripathi RBC 3.19 106/ul Critically low 4.20-5.40 [facility] Comment on above: Performed By: #### C BC ####[facility] Ftfwymubdk[address] [place], [place] [address]Dr. Airam Tripathi WBC 8.6 103/ul Normal 4.0-11.0 [facility] Comment on above: Performed By: #### C BC ####[facility] Jdcdmcidwt0389 [place] [address]Dr. Airam Tripathi PROF 14(COMP METB)on 022 Albumin [Mass/Vol] 3.2 g/dL Critically low 3.4-5.0 [facility] Comment on above: Performed By: #### C MP ####[facility] Yjksojvqxq5049 [place] [phone]. Selenaneil Deuce Albumin/Globulin [Mass ratio] 1.0 {ratio} Normal [facility] Comment on above: Performed By: #### C MP ####[facility] Ovxotyluig1106 [place] [phone]. Airam Tripathi ALP [Catalytic activity/Vol] 126 U/L Critically high 46-116 [facility] Comment on above: Performed By: #### C MP ####[facility] Kyvsfcyzkz1373 [place] [address]Dr. Airam Tripathi ALT [Catalytic activity/Vol] 27 U/L Normal 14-59 [facility] Comment on above: Performed By: #### C MP ####[facility] Zypzslsiwx17[address] [place], [place] [address]Dr. Airam Tripathi Anion gap [Moles/Vol] 9.6 mmol/L Normal [facility] Comment on above: Performed By: #### C MP ####[facility] Xdsmyuihud7535[address] [place], [place] [address]Dr. Airam Tripathi AST [Catalytic activity/Vol] 25 U/L Normal 15-37 [facility] Comment on above: Performed By: #### C MP ####[facility] Ldmwllgpui2275[address] [place], [place] [address]Dr. Airam Tripathi Bilirubin [Mass/Vol] 0.3 mg/dL Normal 0.2-1.0 [facility] Comment on above: Performed By: #### C MP ####[facility] Nrurenwlrx219147 [address] [place], [place] [address]Dr. Airam Tripatih Calcium [Mass/Vol] 8.1 mg/dL Critically low 8.5-10.1 Th [facility] Comment on above: Performed By: #### C MP ####[facility] Trhpfpvgki[address] [place], [place] [address]Dr. Airam Tripathi Chloride [Moles/Vol] 100 mmol/L Normal 98-107 [facility] Comment on above: Performed By: #### C MP ####[facility] Pevkirwazc2069 [place] [phone]. Airam Tripathi CO2 [Moles/Vol] 26.5 mmol/L Normal 21.0-32.0 [facility] Comment on above: Performed By: #### C MP ####[facility] Mxidoytfvx9738 [place] [phone]. Airam Tripathi Creatinine [Mass/Vol] 1.52 mg/dL Critically high 0.55-1.02 [facility] Comment on above: Performed By: #### C MP ####[facility] Zjjacqjtbl1457 [place] [phone]. Airam Tripathi EGFR-AF QATARI 42 mL/min/1.73m2 Critically low >=60 [facility] Comment on above: Performed By: #### C MP ####[facility] Yasqnwnebp5275 [place] [address]Dr. Airam Tripathi EGFR-NON AF QATARI 35 mL/min/1.73m2 Critically low >=60 [facility] Comment on above: Performed By: #### C MP ####[facility] Mcvztipkhl1869 [place] [phone]. Airam Tripathi Globulin (S) [Mass/Vol] 3.3 g/dL Normal [facility] Comment on above: Performed By: #### C MP ####[facility] Lnakqblkve3621 [place] [phone]. Airam Tripathi Glucose [Mass/Vol] 75 mg/dL Normal 74-106 [facility] Comment on above: Performed By: #### C MP ####[facility] Hlyhmzkmll89[address] [place], [place] [address]Dr. Airam Tripathi Potassium [Moles/Vol] 4.1 mmol/L Normal 3.5-5.1 [facility] Comment on above: Performed By: #### C MP ####[facility] Cgtqzsmvpz7683 [place] [phone]. Airam Tripathi Protein [Mass/Vol] 6.5 g/dL Normal 6.4-8.2 [facility] Comment on above: Performed By: #### C MP ####[facility] Kkwoxwgfyk3701 [place] [phone]. Airam Tripathi Sodium [Moles/Vol] 132 mmol/L Critically low 136-145 Th [facility] Comment on above: Performed By: #### C MP ####[facility] Mmgykxkhyn4625 [place] [address]Dr. Airam Tripathi Urea nitrogen [Mass/Vol] 40.0 mg/dL Critically high 7.0-18.0 [facility] Comment on above: Performed By: #### C MP ####[facility] Dvpimwulgi0472 [place] [address]Dr. Airam Tripathi Urea nitrogen/Creatinine [Mass ratio] 26.3 mg/mg Normal [facility] Comment on above: Performed By: #### C MP ####[facility] Wygflpowtn309[address] [place], [place] [address]Dr. Airam Tripathi OSMOLALITYon 04-10-2022 Osmolality [Osmolality] 280 mosm/kg Normal 275-295 [facility] Comment on above: Performed By: #### O SMO ####[facility] Jtlgypauom0168[address] [place], [place] [address]Dr. Airam Tripathi PTH INTACTon 04-09-2022 PTH, Intact 89 pg/mL Critically high 15-65 [facility] Comment on above: Performed By: #### P THINT ####[facility] Spueqkavnt74[address] [place], [place] [address]Dr. Airam Tripathi CBC W MANUAL DIFFon 04-08-20 22 ATYPICAL LYMPH # Normal [facility] Comment on above: Performed By: #### C BCMAN ####[facility] Lngtwxfkeo1540[address] [place], [place] [address]Dr. Airam Tripathi ATYPICAL LYMPH % Normal [facility] Comment on above: Performed By: #### C BCMAN ####[facility] Iqqopwucqe237[address] [place], [place] [address]Dr. Airam Tripathi BAND # Normal 0.0-0.3 [facility] Comment on above: Performed By: #### C BCMAN ####[facility] Yfovlubnfx1850[address] [place], [place] [address]Dr. Yilan Tripathi BAND % Normal 0-5 [facility] Comment on above: Performed By: #### C BCMAN ####[facility] Klhzxpqzbi8933 [place] [address]Dr. Airam Tripathi BASOM # 0.00 103/ul Normal 0.00-0.10 [facility] Comment on above: Performed By: #### C BCMAN ####[facility] Ykrorpotft9926 [place] [address]Dr. Airam Tripathi BASOM % 0.0 % Critically low 0.2-2.0 [facility] Comment on above: Performed By: #### C BCMAN ####[facility] Qsrkaqnskc0774 [place] [address]Dr. Airam Tripathi BLAST # Normal [facility] Comment on above: Performed By: #### C BCGERALDINE ####[facility] Aiheevybdb04[address] [place], [place] [address]Dr. Airam Tripathi BLAST % Normal [facility] Comment on above: Performed By: #### C BCMAN ####[facility] Dsplswrnqa6388[address] [place], [place] [address]Dr. Airam Tripathi CORRECTED WBC Normal 4.0-11.0 [facility] Comment on above: Performed By: #### C BCMAN ####[facility] Fejliupjsu[address] [place], [place] [address]Dr. Airam Tripathi EOS # 0.00 103/ul Normal 0.00-0.70 [facility] Comment on above: Performed By: #### C BCMAN ####[facility] Fnzxipjiqw2907 [place] [address]Dr. Airam Tripathi EOS% 0.0 % Critically low 0.9-7.0 [facility] Comment on above: Performed By: #### C BCMAN ####[facility] Wrynovhoaf65[address] [place], [place] [address]Dr. Airam Tripathi HCT 29.7 % Critically low 36.0-48.0 [facility] Comment on above: Performed By: #### C BCMAN ####[facility] Wxaididjux0034[address] [place], [place] [address]Dr. Airam Tripathi HGB 9.5 g/dl Critically low 12.0-16.0 [facility] Comment on above: Performed By: #### Jodee VELÁSQUEZ ####[facility] Serhzlsidk2096 [place] [address]Dr. Airam Tripathi LYMPHM # 0.42 103/ul Critically low 1.20-3.80 [facility] Comment on above: Performed By: #### C CHRISTEN ####[facility] Oajjtqnsuc7620 [place] [address]Dr. Airam Tripathi LYMPHM% 7.0 % Critically low 20.5-60.0 [facility] Comment on above: Performed By: #### Jodee VELÁSQUEZ ####[facility] Nvqyrpdzsq9211 [place] [address]Dr. Airam Tripathi MCH 30.9 pg Normal 26.7-34.0 [facility] Comment on above: Performed By: #### Jodee VELÁSQUEZ ####[facility] Twtitlsqmt552[address] [place], [place] [address]Dr. Airam Tripathi MCHC 32.0 g/dl Normal 29.9-35.2 [facility] Comment on above: Performed By: #### Jodee VELÁSQUEZ ####[facility] Uwnctlmygi9322 [place] [address]Dr. Airam Tripathi MCV 96.7 fL Normal 81.0-99.0 [facility] Comment on above: Performed By: #### Jodee VELÁSQUEZ ####[facility] Qxibfpzmte812[address] [place], [place] [address]Dr. Airam Tripathi METAMYELOCYTE # Normal [facility] Comment on above: Performed By: #### Jodee VELÁSQUEZ ####[facility] Jyibgzvvkj[address] [place], [place] [address]Dr. Airam Tripathi METAMYELOCYTE % Normal [facility] Comment on above: Performed By: #### C CHRISTEN ####[facility] Uwjazqngre3450 [place] [address]Dr. Airam Tripathi MONOM# 0.36 103/ul Normal 0.30-0.80 [facility] Comment on above: Performed By: #### C CHRISTEN ####[facility] Ctjhhmbzhg4325 [place], [place] [address]Mq. Airam Tripathi MONOM% 6.0 % Normal 1.7-12.0 [facility] Comment on above: Performed By: #### C CHRISTEN ####[facility] Fwojirtpfk6087 [place], [place] [address]Hj. Airam Tripathi MPV 9.5 fL Normal 9.5-13.5 [facility] Comment on above: Performed By: #### C CHRISTEN ####[facility] Mjwxrabpsu4267 [place] [phone]. Airam Tripathi MYELOCYTE # Normal [facility] Comment on above: Performed By: #### C CHRISTEN ####[facility] Dnhnjrtagz9588 [place] [phone]. Airam Tripathi MYELOCYTE % Normal [facility] Comment on above: Performed By: #### Jodee VELÁSQUEZ ####[facility] Lnrs[address]chw[address] [place], [place] [address]Dr. Airam Tripathi NRBC Normal [facility] Comment on above: Performed By: #### C CHRISTEN ####[facility] Blgbteecdj2504 [place] [phone]. Airam Tripathi PLT 185 103/ul Normal 150-450 [facility] Comment on above: Performed By: #### C CHRISTEN ####[facility] Wtrqrwflxp8527 [place] [phone]. Airam Tripathi RBC 3.07 106/ul Critically low 4.20-5.40 [facility] Comment on above: Performed By: #### C CHRISTEN ####[facility] [address]kk[address] [place] [phone]. Airam Tripathi RDW 13.6 % Normal 11.0-15.0 [facility] Comment on above: Performed By: #### C CHRISTEN ####[facility] Onwiisgzat7[address] [place] [phone]. Selenaneil Tripathi SEG # 5.22 103/ul Normal 1.40-6.50 [facility] Comment on above: Performed By: #### C CHRISTEN ####[facility] Vrjialkkjd24[address] [place] [phone]. Airam Tripathi SEG % 87.0 % Critically high 43.0-75.0 [facility] Comment on above: Performed By: #### C CHRISTEN ####[facility] Anzbxnkiok04[address] [place] [phone]. Airam Tripathi WBC 6.0 103/ul Normal 4.0-11.0 [facility] Comment on above: Performed By: #### C CHRISTEN ####[facility] Wjewqrkgip34[address] [place] [phone]. Airam Tripathi FREE THYROXINE INDEX T7on FTI 1.57 Normal 1.30-4.50 [facility] Comment on above: Performed By: #### T 7, TSH, CMP ####[facility] Azpsqavqkf[address] [place], [place] [address]Dr. Airam Tripathi T3U 32.0 % Normal 30.0-39.0 [facility] Comment on above: Performed By: #### T 7, TSH, CMP ####[facility] Hlpwaplpii[address] [place], [place] [id number]. Airam Tripathi T4 [Mass/Vol] 4.90 ug/dL Normal 4.80-13.90 [facility] Comment on above: Performed By: #### T 7, TSH, CMP ####[facility] Xlezqxfkrs38[address] [place] [phone]. Airam Tripathi PROF 14(COMP METB)on 022 Albumin [Mass/Vol] 3.0 g/dL Critically low 3.4-5.0 Th e [facility] Comment on above: Performed By: #### T 7, TSH, CMP ####[facility] Jkdftescrz[address] [place], [place] [address]Dr. Airam Tripathi Albumin/Globulin [Mass ratio] 1.0 {ratio} Normal [facility] Comment on above: Performed By: #### T 7, TSH, CMP ####[facility] Pesubflxdx6243 [place] [phone]. Airam Tripathi ALP [Catalytic activity/Vol] 106 U/L Normal 46-116 [facility] Comment on above: Performed By: #### T 7, TSH, CMP ####[facility] Eytpnfbipz24[address] [place], [place] [address]Dr. Airam Tripathi ALT [Catalytic activity/Vol] 20 U/L Normal 14-59 [facility] Comment on above: Performed By: #### T 7, TSH, CMP ####[facility] Ltsxalfzsb08364[address] [place], [place] [address]Dr. Airam Tripathi Anion gap [Moles/Vol] 10.8 mmol/L Normal [facility] Comment on above: Performed By: #### T 7, TSH, CMP ####[facility] Kzrblaoriq16[address] [place], [place] [address]Dr. Airam Tripathi AST [Catalytic activity/Vol] 19 U/L Normal 15-37 [facility] Comment on above: Performed By: #### T 7, TSH, CMP ####[facility] Ffgvtgqxvd6825[address] [place], [place] [address]Dr. Airam Tripathi Bilirubin [Mass/Vol] 0.3 mg/dL Normal 0.2-1.0 [facility] Comment on above: Performed By: #### T 7, TSH, CMP ####[facility] Gyejioegxy[address]264[address] [place], [place] [address]Dr. Airam Tripathi Calcium [Mass/Vol] 8.0 mg/dL Critically low 8.5-10.1 [facility] Comment on above: Performed By: #### T 7, TSH, CMP ####[facility] Ckcypopnyt5[address] [place], [place] [address]Dr. Airam Tripathi Chloride [Moles/Vol] 100 mmol/L Normal 98-107 [facility] Comment on above: Performed By: #### T 7, TSH, CMP ####[facility] Qlzuhxmntm[address] [place], [place] [address]Dr. Airam Tripathi CO2 [Moles/Vol] 24.3 mmol/L Normal 21.0-32.0 [facility] Comment on above: Performed By: #### T 7, TSH, CMP ####[facility] Ikmscyatuh16[address] [place] [phone]. Airam Deuce Creatinine [Mass/Vol] 1.12 mg/dL Critically high 0.55-1.02 [facility] Comment on above: Performed By: #### T 7, TSH, CMP ####[facility] Jzzrmkwonr40[address] [place] [phone]. Selenaneil Tripathi EGFR-AF QATARI 60 mL/min/1.73m2 Normal >=60 [facility] Comment on above: Performed By: #### T 7, TSH, CMP ####[facility] Aoexiteqaf7[address] [place] [phone]. Airam Tripathi EGFR-NON AF QATARI 50 mL/min/1.73m2 Critically low >=60 [facility] Comment on above: Performed By: #### T 7, TSH, CMP ####[facility] Dvczvmsops6400[address] [place], [place] [address]Dr. Airam Tripathi Globulin (S) [Mass/Vol] 3.0 g/dL Normal [facility] Comment on above: Performed By: #### T 7, TSH, CMP ####[facility] Noyoricqxc59364[address] [place], [place] [address]Dr. Airam Tripathi Glucose [Mass/Vol] 76 mg/dL Normal 74-106 [facility] Comment on above: Performed By: #### T 7, TSH, CMP ####[facility] Ctjlwcibfb[address] [place] [address]Dr. Airam Tripathi Potassium [Moles/Vol] 4.1 mmol/L Normal 3.5-5.1 [facility] Comment on above: Performed By: #### T 7, TSH, CMP ####[facility] Voydrnnznv225[address] [place] [address]Dr. Airam Tripathi Protein [Mass/Vol] 6.0 g/dL Critically low 6.4-8.2 Th [facility] Comment on above: Performed By: #### T 7, TSH, CMP ####[facility] Cfnbjyhlyh[address] [place] [address]Dr. Airam Tripathi Sodium [Moles/Vol] 131 mmol/L Critically low 136-145 Th e [facility] Comment on above: Performed By: #### T 7, TSH, CMP ####[facility] Tuirgwqrrm8316[address] [place], [place] [address]Dr. Airam Tripathi Urea nitrogen [Mass/Vol] 32.0 mg/dL Critically high 7.0-18.0 [facility] Comment on above: Performed By: #### T 7, TSH, CMP ####[facility] Fgefixyudo3069[address] [place], [place] [address]Dr. Airam Tripathi Urea nitrogen/Creatinine [Mass ratio] 28.6 mg/mg Normal [facility] Comment on above: Performed By: #### T 7, TSH, CMP ####[facility] Kucxqvjbnv9632[address] [place], [place] [address]Dr. Airam Tripathi TSHon 04-08-2022 TSH 0.027 uIU/mL Critically low 0.358-3.74 0 [facility] Comment on above: Performed By: #### T 7, TSH, CMP ####[facility] Sdyzwhpaea[address] [place], [place] [address]Dr. Airam Tripathi UA RANDOMon 04-08-2022 Bilirubin Ql (U) Negative Normal NEGATIVE [facility] Comment on above: Performed By: #### U A ####[facility] Qenihmeyhd0159[address] [place], [place] [address]Dr. Airam Tripathi Clarity (U) CLEAR Normal CLEAR [facility] Comment on above: Performed By: #### U A ####[facility] Plddhairzs1407[address] [place], [place] [address]Dr. Airam Tripathi Color (U) LT. YELLOW Normal YELLOW [facility] Comment on above: Performed By: #### U A ####[facility] Nxgijdmhze7545[address] [place], [place] [address]Dr. Airam Tripathi Glucose Ql (U) Negative Normal NEGATIVE [facility] Comment on above: Performed By: #### U A ####[facility] Xzllhphcnj4865[address] [place], [place] [address]Dr. Airam Tripathi Hemoglobin Ql (U) Negative Normal NEGATIVE [facility] Comment on above: Performed By: #### U A ####[facility] Cfqarhwohh[address] [place] [address]Dr. Airam Tripathi Ketones Ql (U) Negative Normal NEGATIVE [facility] Comment on above: Performed By: #### U A ####[facility] Rcrjvpkiwr20[address] [place] [address]Dr. Airam Tripathi LEUKOCYTES Negative Normal NEGATIVE [facility] Comment on above: Performed By: #### U A ####[facility] Mtnnhffztn7[address] [place], [place] [address]Dr. Airam Tripathi Nitrite Ql (U) Negative Normal NEGATIVE [facility] Comment on above: Performed By: #### U A ####[facility] Vxqmmsoqxn5[address] [place], [place] [address]Dr. Airam Tripathi pH (U) 6.0 [pH] Normal 5-9 [facility] Comment on above: Performed By: #### U A ####[facility] Xgyymyuklz8235[address] [place], [place] [address]Dr. Ariam Tripathi SPEC GRAVITY 1.010 Normal 1.005-<=1. 025 [facility] Comment on above: Performed By: #### U A ####[facility] Nhintfgizu6135[address] [place], [place] [address]Dr. Airam Tripathi UA PROTEIN Negative Normal NEGATIVE/ TRACE [facility] Comment on above: Performed By: #### U A ####[facility] Xwxzbxpsrj1089[address] [place], [place] [address]Dr. Airam Tripathi Urobilinogen Qn (U) 0.2 {Ligia'U}/dL Normal 0.2 - 1. 0 [facility] Comment on above: Performed By: #### U A ####[facility] Oadjwfdtzi54[address] [place], [place] [address]Dr. Airam Tripathi URINE T PROTEIN CREAT RATIOo n 04-08-2022 UR PROT CREAT RAT 0.32 Normal [facility] Comment on above: Performed By: #### U RTPCR ####[facility] Zqtfwccoms9[address] [place], [place] [address]Dr. Airam Tripathi UR TOTAL PROTEIN <6.0 Normal <=12.0 [facility] Comment on above: Performed By: #### U RTPCR ####[facility] Yqibhycxvk[address] [place] [address]Dr. Airam Tripathi URINE CREAT 18.75 mg/dL Critically low 20.00-300. 00 [facility] Comment on above: Performed By: #### U RTPCR ####[facility] Scfandpfzd23[address] [place], [place] [address]Dr. Airam Tripathi FERRITINon 04-06-2022 Ferritin [Mass/Vol] 99.0 ng/mL Normal 8.0-252.0 [facility] Comment on above: Performed By: #### F ETIBC, VITAD, FERR ####[facility] Hkvzncflsl7[address] [place], [place] [address]Dr. Airam Tripathi IRON AND TIBCon 04-06-2022 % SATURATION 15.4 % Normal [facility] Comment on above: Performed By: #### F ETIBC, VITAD, FERR ####[facility] Dmpijtigpf0050[address] [place], [place] [address]Dr. Airam Tripathi Iron [Mass/Vol] 43.0 ug/dL Critically low 50.0-170.0 [facility] Comment on above: Performed By: #### F ETIBC, VITAD, FERR ####[facility] Ceesrvxpzb07[address] [place], [place] [address]Dr. Airam Tripathi TIBC DIRECT 280.0 ug/dL Normal 250.0-450. 0 [facility] Comment on above: Performed By: #### F ETIBC, VITAD, FERR ####[facility] Pvgcftgnvc[address] [place], [place] [address]Dr. Selenaneil Tripathi PROF 14(COMP METB)on 022 Albumin [Mass/Vol] 3.2 g/dL Critically low 3.4-5.0 e [facility] Comment on above: Performed By: #### C MP, URIC ####[facility] Daokvtqitm656[address] [place], [place] [address]Dr. Airam Tripathi Albumin/Globulin [Mass ratio] 1.0 {ratio} Normal [facility] Comment on above: Performed By: #### C MP, URIC ####[facility] Ifyreytydc07[address] [place] [phone]. Airam Tripathi ALP [Catalytic activity/Vol] 118 U/L Critically high 46-116 [facility] Comment on above: Performed By: #### C MP, URIC ####[facility] Woicoujmnt4316 [place] [phone]. Airam Deuce ALT [Catalytic activity/Vol] 24 U/L Normal 14-59 [facility] Comment on above: Performed By: #### C MP, URIC ####[facility] Mbtpnwqpvj0734 [place] [phone]. Selenaneil Tripathi Anion gap [Moles/Vol] 14.4 mmol/L Normal [facility] Comment on above: Performed By: #### C MP, URIC ####[facility] Nztaulqtkd7022 [place] [phone]. Airam Tripathi AST [Catalytic activity/Vol] 21 U/L Normal 15-37 [facility] Comment on above: Performed By: #### C MP, URIC ####[facility] Hbxclpijhw9925 [place] [phone]. Airam Tripathi Bilirubin [Mass/Vol] 0.3 mg/dL Normal 0.2-1.0 [facility] Comment on above: Performed By: #### C MP, URIC ####[facility] Pwlfdppezb5204 [place] [phone]. Airam Tripathi Calcium [Mass/Vol] 8.0 mg/dL Critically low 8.5-10.1 [facility] Comment on above: Performed By: #### C MP, URIC ####[facility] Cjlxxbfvlx9306 [place] [phone]. Airam Tripathi Chloride [Moles/Vol] 98 mmol/L Normal 98-107 [facility] Comment on above: Performed By: #### C MP, URIC ####[facility] Tbdwpoqzgm5003 [place] [phone]. Airam Tripathi CO2 [Moles/Vol] 22.0 mmol/L Normal 21.0-32.0 [facility] Comment on above: Performed By: #### C MP, URIC ####[facility] Vwzclbizvz04[address] [place] [address]Dr. Airam Tripathi Creatinine [Mass/Vol] 1.86 mg/dL Critically high 0.55-1.02 [facility] Comment on above: Performed By: #### C MP, URIC ####[facility] Gumtrtacfa9022 [place] [address]Dr. Airam Tripathi EGFR-AF QATARI 33 mL/min/1.73m2 Critically low >=60 [facility] Comment on above: Performed By: #### C MP, URIC ####[facility] Quggolvbie9[address] [place], [place] [address]Dr. Airam Tripathi EGFR-NON AF QATARI 28 mL/min/1.73m2 Critically low >=60 [facility] Comment on above: Performed By: #### C MP, URIC ####[facility] Rpaiphkakw215[address] [place], [place] [address]Dr. Airam Tripathi Globulin (S) [Mass/Vol] 3.1 g/dL Normal [facility] Comment on above: Performed By: #### C MP, URIC ####[facility] Ysrhhqunil5587[address] [place], [place] [address]Dr. Airam Tripathi Glucose [Mass/Vol] 93 mg/dL Normal 74-106 [facility] Comment on above: Performed By: #### C MP, URIC ####[facility] Hpcsrpnbhx1465[address] [place], [place] [address]Dr. Airam Tripathi Potassium [Moles/Vol] 4.4 mmol/L Normal 3.5-5.1 [facility] Comment on above: Performed By: #### C MP, URIC ####[facility] Xvllktxqfk517[address] [place], [place] [address]Dr. Airam Tripathi Protein [Mass/Vol] 6.3 g/dL Critically low 6.4-8.2 Th [facility] Comment on above: Performed By: #### C MP, URIC ####[facility] Yjoenptkab10[address] [place], [place] [address]Dr. Airam Tripathi Sodium [Moles/Vol] 130 mmol/L Critically low 136-145 Th e [facility] Comment on above: Performed By: #### C MP, URIC ####[facility] Pkaigtnplv0123 [place] [phone]. Airam Tripathi Urea nitrogen [Mass/Vol] 49.0 mg/dL Critically high 7.0-18.0 [facility] Comment on above: Performed By: #### C MP, URIC ####[facility] Kagnacgtbv4460 [place] [address]Dr. Airam Tripathi Urea nitrogen/Creatinine [Mass ratio] 26.3 mg/mg Normal [facility] Comment on above: Performed By: #### C MP, URIC ####[facility] Nftvtxefqb0315[address] [place], [place] [address]Dr. Airam Tripathi URIC ACID SERUMon 04-06-2022 Urate [Mass/Vol] 6.5 mg/dL Critically high 2.6-6.0 [facility] Comment on above: Performed By: #### C MP, URIC ####[facility] Asezyrpnnd04[address] [place], [place] [address]Dr. Airam Tripathi VITAMIN D 25 OHon 04-06-2022 VIT D 25-OH 74.5 ng/mL Normal [facility] Comment on above: Performed By: #### F ETIBC, VITAD, FERR ####[facility] Rfonzqahdl2[address] [place], [place] [address]Dr. Airam Tripathi VIT D RANGES SEE BELOW Normal [facility] Comment on above: Result Comment: <20 ng/mL Vit D deficient 20 - <30 ng/mL Vit D insufficient 30 - 100 ng/mL Vit D sufficient >100 ng/mL Potential Toxicity Performed By: #### F ETIBC, VITAD, FERR ####[facility] Kccimtrypb[address] [place], [place] [address]Dr. Airam Tripathi OSMOLALITYon 04-01-2022 Osmolality [Osmolality] 284 mosm/kg Normal 275-295 [facility] Comment on above: Performed By: #### O SMO ####[facility] Fiimfenrqk32224[address] [place], [place] [address]Dr. Airam Tripathi CBC AUTO DIFFon 03-31-2022 BASO # 0.0 103/ul Normal 0.0-0.1 [facility] Comment on above: Performed By: #### C BC ####[facility] Mknalcbtrv038[address] [place] [phone]. Airam Tripathi Basophils/100 WBC (Bld) 0.3 % Normal 0.2-2.0 [facility] Comment on above: Performed By: #### C BC ####[facility] Hvbucdgiza2356 [place] [phone]. Airam Tripathi EO # 0.1 103/ul Normal 0.0-0.7 [facility] Comment on above: Performed By: #### C BC ####[facility] Zazztsnkjz7[address] [place] [address]Dr. Airam Tripathi Eosinophils/100 WBC (Bld) 2.0 % Normal 0.9-7.0 [facility] Comment on above: Performed By: #### C BC ####[facility] Dzktluofbo2492 [place] [address]Dr. Airam Tripathi Erythrocyte distribution width (RBC) [Ratio] 13.5 % Normal 11.0-15.0 [facility] Comment on above: Performed By: #### C BC ####[facility] Cousrsqaal6835 [place] [phone]. Airam Tripathi Hematocrit (Bld) [Volume fraction] 32.5 % Critically low 36.0-48.0 [facility] Comment on above: Performed By: #### C BC ####[facility] Gvoiewouqs4166 [place] [phone]. Airam Tripathi Hemoglobin (Bld) [Mass/Vol] 10.1 g/dL Critically low 12.0-16.0 [facility] Comment on above: Performed By: #### C BC ####[facility] Xegqqnfzvv5272 [place] [phone]. Airam Tripathi IG # 0.03 10e3/ul Normal 0.00-0.03 [facility] Comment on above: Performed By: #### C BC ####[facility] Twyfmeaxgg2604 [place] [address]Dr. Selenaneil Tripathi IG % 0.4 % Normal 0.0-0.5 [facility] Comment on above: Performed By: #### C BC ####[facility] Jcogplrorj06[address] [place] [address]Dr. Airam Deuce LYMPH # 1.6 103/ul Normal 1.2-3.8 [facility] Comment on above: Performed By: #### C BC ####[facility] Mydfsnxygf6119 [place] [address]Dr. Selenaneil Tripathi Lymphocytes/100 WBC (Bld) 22.6 % Normal 20.5-60.0 [facility] Comment on above: Performed By: #### C BC ####[facility] Pqnjifwcaj0645 [place] [address]Dr. Airam Tripathi MANUAL DIFF REQ NO Normal [facility] Comment on above: Performed By: #### C BC ####[facility] Nxfnpsmfut4559 [place] [address]Dr. Airam Deuce MCH (RBC) [Entitic mass] 30.5 pg Normal 26.7-34.0 [facility] Comment on above: Performed By: #### C BC ####[facility] Xupehwrmok[address] [place], [place] [address]Dr. Airam Deuce MCHC (RBC) [Mass/Vol] 31.1 g/dL Normal 29.9-35.2 [facility] Comment on above: Performed By: #### C BC ####[facility] Uhlxlksvta754[address] [place], [place] [address]Dr. Airam Decue MCV (RBC) [Entitic vol] 98.2 fL Normal 81.0-99.0 [facility] Comment on above: Performed By: #### C BC ####[facility] Twwtpihhhv30[address] [place], [place] [address]Dr. Airam Tripathi MONO # 0.5 103/ul Normal 0.3-0.8 [facility] Comment on above: Performed By: #### C BC ####[facility] Jkooxfmxvf1[address] [place], [place] [address]Dr. Airam Tripathi Monocytes/100 WBC (Bld) 7.3 % Normal 1.7-12.0 [facility] Comment on above: Performed By: #### C BC ####[facility] Oxfnbawuin22[address] [place] [address]Dr. Airam Tripathi NEUT # 4.7 103/ul Normal 1.4-6.5 [facility] Comment on above: Performed By: #### C BC ####[facility] Ozaafddzng3405 [place] [address]Dr. Airam Tripathi Neutrophils/100 WBC (Bld) 67.4 % Normal 43.0-75.0 [facility] Comment on above: Performed By: #### C BC ####[facility] Zymgoxdkcw7686 [place] [address]Dr. Airam Tripathi Platelet mean volume (Bld) [Entitic vol] 9.5 fL Normal 9.5-13.5 [facility] Comment on above: Performed By: #### C BC ####[facility] Tnwfrrhqqr58[address] [place], [place] [address]Dr. Airam Tripathi PLT 273 103/ul Normal 150-450 [facility] Comment on above: Performed By: #### C BC ####[facility] Oygztvwrod6935[address] [place], [place] [address]Dr. Airam Tripathi RBC 3.31 106/ul Critically low 4.20-5.40 [facility] Comment on above: Performed By: #### C BC ####[facility] Wsfemhjdcc99[address] [place], [place] [address]Dr. Airam Tripathi WBC 7.0 103/ul Normal 4.0-11.0 [facility] Comment on above: Performed By: #### C BC ####[facility] Hqhqkujzzs175[address] [place], [place] [address]Dr. Airam Deuce PROF 14(COMP METB)on 022 Albumin [Mass/Vol] 3.4 g/dL Normal 3.4-5.0 [facility] Comment on above: Performed By: #### C MP ####[facility] Knyvyppsfb74[address] [place] [address]Dr. Selenaneil Tripathi Albumin/Globulin [Mass ratio] 1.1 {ratio} Normal [facility] Comment on above: Performed By: #### C MP ####[facility] Watzrpsmcq6049[address] [place], [place] [address]Dr. Airam Tripathi ALP [Catalytic activity/Vol] 107 U/L Normal 46-116 [facility] Comment on above: Performed By: #### C MP ####[facility] Aexohhbczj175[address] [place], [place] [address]Dr. Airam Tripathi ALT [Catalytic activity/Vol] 22 U/L Normal 14-59 [facility] Comment on above: Performed By: #### C MP ####[facility] Tguxnealgx1801[address] [place], [place] [address]Dr. Airam Tripathi Anion gap [Moles/Vol] 6.8 mmol/L Normal [facility] Comment on above: Performed By: #### C MP ####[facility] Qfbhkicuin606[address] [place], [place] [address]Dr. Airam Tripathi AST [Catalytic activity/Vol] 23 U/L Normal 15-37 [facility] Comment on above: Performed By: #### C MP ####[facility] Fzxpxswefv3714[address] [place], [place] [address]Dr. Airam Tripathi Bilirubin [Mass/Vol] 0.2 mg/dL Normal 0.2-1.0 [facility] Comment on above: Performed By: #### C MP ####[facility] Jighfngkhv5799[address] [place], [place] [address]Dr. Airam Tripathi Calcium [Mass/Vol] 8.4 mg/dL Critically low 8.5-10.1 Th [facility] Comment on above: Performed By: #### C MP ####[facility] Iommvluyhc4[address] [place], [place] [address]Dr. Airam Tripathi Chloride [Moles/Vol] 100 mmol/L Normal 98-107 [facility] Comment on above: Performed By: #### C MP ####[facility] Hyyvhhphab[address] [place], [place] [address]Dr. Airam Tripathi CO2 [Moles/Vol] 29.9 mmol/L Normal 21.0-32.0 [facility] Comment on above: Performed By: #### C MP ####[facility] Comqfwtqku4[address] [place] [address]Dr. Airam Tripathi Creatinine [Mass/Vol] 1.20 mg/dL Critically high 0.55-1.02 [facility] Comment on above: Performed By: #### C MP ####[facility] Ebfjtgpxef[address] [place], [place] [address]Dr. Airam Tripathi EGFR-AF QATARI 56 mL/min/1.73m2 Critically low >=60 [facility] Comment on above: Performed By: #### C MP ####[facility] Lfhwytbpcc[address] [place], [place] [address]Dr. Airam Tripathi EGFR-NON AF QATARI 46 mL/min/1.73m2 Critically low >=60 [facility] Comment on above: Performed By: #### C MP ####[facility] Zsdqvtnape[address] [place], [place] [address]Dr. Airam Tripathi Globulin (S) [Mass/Vol] 3.0 g/dL Normal [facility] Comment on above: Performed By: #### C MP ####[facility] Xusfbgsgya[address] [place], [place] [address]Dr. Airam Tripathi Glucose [Mass/Vol] 57 mg/dL Critically low 74-106 Th [facility] Comment on above: Performed By: #### C MP ####[facility] Ggfuhuhfdr5225[address] [place], [place] [address]Dr. Airam Tripathi Potassium [Moles/Vol] 3.7 mmol/L Normal 3.5-5.1 The [facility] Comment on above: Performed By: #### C MP ####[facility] Xepkafxeqc0614[address] [place], [place] [address]Dr. Airam Tripathi Protein [Mass/Vol] 6.4 g/dL Normal 6.4-8.2 The [facility] Comment on above: Performed By: #### C MP ####[facility] Uujixpylxx188[address] [place], [place] [address]Dr. Airam Tripathi Sodium [Moles/Vol] 133 mmol/L Critically low 136-145 Th [facility] Comment on above: Performed By: #### C MP ####[facility] Tbeqtzwivp2712[address] [place], [place] [address]Dr. Airam Tripathi Urea nitrogen [Mass/Vol] 39.0 mg/dL Critically high 7.0-18.0 [facility] Comment on above: Performed By: #### C MP ####[facility] Sesfcwzkwy3060[address] [place], [place] [address]Dr. Airam Tripathi Urea nitrogen/Creatinine [Mass ratio] 32.5 mg/mg Normal [facility] Comment on above: Performed By: #### C MP ####[facility] Prmywadxpj4187[address] [place], [place] [address]Dr. Airam Tripathi OSMOLALITYon 03-24-2022 Osmolality [Osmolality] 285 mosm/kg Normal 275-295 [facility] Comment on above: Performed By: #### O SMO ####[facility] Pcauopjolw185[address] [place], [place] [address]Dr. Airam Tripathi CBC AUTO DIFFon 03-22-2022 BASO # 0.0 103/ul Normal 0.0-0.1 [facility] Comment on above: Performed By: #### C BC ####[facility] Dguusollyc617047 [address] [place], [place] [address]Dr. Airam Tripathi Basophils/100 WBC (Bld) 0.4 % Normal 0.2-2.0 The [facility] Comment on above: Performed By: #### C BC ####[facility] Ditoinqmhx26224[address] [place], [place] [address]Dr. Airam Tripathi EO # 0.2 103/ul Normal 0.0-0.7 The [facility] Comment on above: Performed By: #### C BC ####[facility] Fnitvzirhh086147 [address] [place], [place] [address]Dr. Airam Tripathi Eosinophils/100 WBC (Bld) 2.3 % Normal 0.9-7.0 The [facility] Comment on above: Performed By: #### C BC ####[facility] Zmnhvvtzhz680647 [address] [place], [place] [address]Dr. Airam Tripathi Erythrocyte distribution width (RBC) [Ratio] 13.9 % Normal 11.0-15.0 The [facility] Comment on above: Performed By: #### C BC ####[facility] Bqrqcqftic733447 [address] [place], [place] [address]Dr. Airam Tripathi Hematocrit (Bld) [Volume fraction] 32.6 % Critically low 36.0-48.0 The [facility] Comment on above: Performed By: #### C BC ####[facility] Eshnafkmsr350247 [address] [place], [place] [address]Dr. Selenaneil Tripathi Hemoglobin (Bld) [Mass/Vol] 10.3 g/dL Critically low 12.0-16.0 The [facility] Comment on above: Performed By: #### C BC ####[facility] Uhxfzxafvy240747 [address] [place], [place] [address]Dr. Airam Tripathi IG # 0.11 10e3/ul Critically high 0.00-0.03 [facility] Comment on above: Performed By: #### C BC ####[facility] Ryxrpxcqqx806147 [address] [place], [place] [address]Dr. Airam Tripathi IG % 1.4 % Critically high 0.0-0.5 [facility] Comment on above: Performed By: #### C BC ####[facility] Nogdgsilif835[address] [place], [place] [address]Dr. Airam Tripathi LYMPH # 1.3 103/ul Normal 1.2-3.8 The [facility] Comment on above: Performed By: #### C BC ####[facility] Sbybelnpqm389047 [address] [place], [place] [address]Dr. Airam Tripathi Lymphocytes/100 WBC (Bld) 15.9 % Critically low 20.5-60.0 The [facility] Comment on above: Performed By: #### C BC ####[facility] Sjjjjayttr840[address] [place], [place] [address]Dr. Airam Tripathi MANUAL DIFF REQ NO Normal The [facility] Comment on above: Performed By: #### C BC ####[facility] Apghhamzay657447 [address] [place], [place] [address]Dr. Airam Tripathi MCH (RBC) [Entitic mass] 30.7 pg Normal 26.7-34.0 The [facility] Comment on above: Performed By: #### C BC ####[facility] J[address]rmrpfla[address] [place] [address]Dr. Airam Tripathi MCHC (RBC) [Mass/Vol] 31.6 g/dL Normal 29.9-35.2 The [facility] Comment on above: Performed By: #### C BC ####[facility] Uhmlshorta9957 [place] [address]Dr. Airam Tripathi MCV (RBC) [Entitic vol] 97.0 fL Normal 81.0-99.0 The [facility] Comment on above: Performed By: #### C BC ####[facility] Hfamrgisip9309 [place] [address]Dr. Airam Deuce MONO # 0.6 103/ul Normal 0.3-0.8 The [facility] Comment on above: Performed By: #### C BC ####[facility] Lektklmhjv7124 [place] [address]Dr. Airam Deuce Monocytes/100 WBC (Bld) 6.9 % Normal 1.7-12.0 The [facility] Comment on above: Performed By: #### C BC ####[facility] Kqiktxysdj7855[address] [place], [place] [address]Dr. Airam Tripathi NEUT # 5.9 103/ul Normal 1.4-6.5 The [facility] Comment on above: Performed By: #### C BC ####[facility] Lqrvazllfd393447 [address] [place], [place] [address]Dr. Airam Deuce Neutrophils/100 WBC (Bld) 73.1 % Normal 43.0-75.0 The [facility] Comment on above: Performed By: #### C BC ####[facility] Ozroewtcjn2965 [place] [address]Dr. Airam Deuce Platelet mean volume (Bld) [Entitic vol] 9.5 fL Normal 9.5-13.5 The [facility] Comment on above: Performed By: #### C BC ####[facility] Qkeajjjobz8708 [place] [id number]. Airam Tripathi PLT 313 103/ul Normal 150-450 [facility] Comment on above: Performed By: #### C BC ####[facility] Fmrtzgotnq2818 [place] [id number]. Airam Tripathi RBC 3.36 106/ul Critically low 4.20-5.40 [facility] Comment on above: Performed By: #### C BC ####[facility] Nwtvjhdcah2194 [place] [id number]. Airam Tripathi WBC 8.1 103/ul Normal 4.0-11.0 [facility] Comment on above: Performed By: #### C BC ####[facility] Yanmwuhupz9439 [place] [address]Dr. Airam Tripathi PROF 14(COMP METB)on 022 Albumin [Mass/Vol] 3.3 g/dL Critically low 3.4-5.0 [facility] Comment on above: Performed By: #### C MP ####[facility] Jmqtsznukb983447 [address] [place], [place] [address]Dr. Airam Tripathi Albumin/Globulin [Mass ratio] 1.0 {ratio} Normal [facility] Comment on above: Performed By: #### C MP ####[facility] Txynivehuk14[address] [place] [address]Dr. Airam Tripathi ALP [Catalytic activity/Vol] 113 U/L Normal 46-116 The [facility] Comment on above: Performed By: #### C MP ####[facility] Gdtxngwgzn2955 [place] [address]Dr. Airam Tripathi ALT [Catalytic activity/Vol] 21 U/L Normal 14-59 [facility] Comment on above: Performed By: #### C MP ####[facility] Cybvmztwxk4280 [place] [address]Dr. Airam Tripathi Anion gap [Moles/Vol] 12.2 mmol/L Normal [facility] Comment on above: Performed By: #### C MP ####[facility] Oggnediari[address] [place], [place] [address]Dr. Airam Tripathi AST [Catalytic activity/Vol] 21 U/L Normal 15-37 The [facility] Comment on above: Performed By: #### C MP ####[facility] Qhnydqnkjw9051 [place] [address]Dr. Airam Tripathi Bilirubin [Mass/Vol] 0.2 mg/dL Normal 0.2-1.0 [facility] Comment on above: Performed By: #### C MP ####[facility] Yfbriimpgg496147 [address] [place], [place] [address]Dr. Airam Tripathi Calcium [Mass/Vol] 8.4 mg/dL Critically low 8.5-10.1 Th e [facility] Comment on above: Performed By: #### C MP ####[facility] Wkcsqjhych890647 [address] [place], [place] [address]Dr. Airam Tripathi Chloride [Moles/Vol] 103 mmol/L Normal 98-107 [facility] Comment on above: Performed By: #### C MP ####[facility] Sbbiavcqiv845947 [address] [place], [place] [address]Dr. Airam Tripathi CO2 [Moles/Vol] 24.4 mmol/L Normal 21.0-32.0 The [facility] Comment on above: Performed By: #### C MP ####[facility] Blkhgfsuur951647 [address] [place], [place] [address]Dr. Airam Tripathi Creatinine [Mass/Vol] 1.11 mg/dL Critically high 0.55-1.02 [facility] Comment on above: Performed By: #### C MP ####[facility] Hyszqqkajs4897[address] [place], [place] [address]Dr. Airam Deuce EGFR-AF QATARI >60 Normal >=60 The [facility] Comment on above: Performed By: #### C MP ####[facility] Pmqcvowenk074647 [address] [place], [place] [address]Dr. Airam Deuce EGFR-NON AF QATARI 50 mL/min/1.73m2 Critically low >=60 The [facility] Comment on above: Performed By: #### C MP ####[facility] Jpwmldbviz632647 [address] [place], [place] [address]Dr. Airam Tripathi Globulin (S) [Mass/Vol] 3.2 g/dL Normal [facility] Comment on above: Performed By: #### C MP ####[facility] Cjxovzdjra3289 [place] [address]Dr. iAram Tripathi Glucose [Mass/Vol] 84 mg/dL Normal 74-106 [facility] Comment on above: Performed By: #### C MP ####[facility] Cutaeplugt131247 [address] [place], [place] [address]Dr. Airam Tripathi Potassium [Moles/Vol] 4.6 mmol/L Normal 3.5-5.1 [facility] Comment on above: Performed By: #### C MP ####[facility] Dpgrzrkigi138847 [address] [place], [place] [address]Dr. Airam Tripathi Protein [Mass/Vol] 6.5 g/dL Normal 6.4-8.2 [facility] Comment on above: Performed By: #### C MP ####[facility] Neaonkbwcs783447 [address] [place], [place] [address]Dr. Airam Tripathi Sodium [Moles/Vol] 135 mmol/L Critically low 136-145 Th [facility] Comment on above: Performed By: #### C MP ####[facility] Jmszovngxi517147 [address] [place], [place] [address]Dr. Airam Tripathi Urea nitrogen [Mass/Vol] 39.0 mg/dL Critically high 7.0-18.0 [facility] Comment on above: Performed By: #### C MP ####[facility] Tdnrfojztw246547 [address] [place], [place] [address]Dr. Airam Tripathi Urea nitrogen/Creatinine [Mass ratio] 35.1 mg/mg Normal [facility] Comment on above: Performed By: #### C MP ####[facility] Ccjllxowox962247 [address] [place], [place] [address]Dr. Airam Tripathi OSMOLALITYon 03-17-2022 Osmolality [Osmolality] 277 mosm/kg Normal 275-295 [facility] Comment on above: Performed By: #### O SMO ####[facility] Dymdjtscdn75[address] [place], [place] [address]Dr. Airam Tripathi CBC AUTO DIFFon 03-15-2022 BASO # 0.0 103/ul Normal 0.0-0.1 The [facility] Comment on above: Performed By: #### C BC ####[facility] Tgxcbozicp7930 [place] [address]Dr. Airam Tripathi Basophils/100 WBC (Bld) 0.4 % Normal 0.2-2.0 The [facility] Comment on above: Performed By: #### C BC ####[facility] Iuwrmsqjrq4058 [place] [address]Dr. Airam Tripathi EO # 0.1 103/ul Normal 0.0-0.7 The [facility] Comment on above: Performed By: #### C BC ####[facility] Idkbdrhnzi942047 [address] [place], [place] [address]Dr. Airam Tripathi Eosinophils/100 WBC (Bld) 2.4 % Normal 0.9-7.0 The [facility] Comment on above: Performed By: #### C BC ####[facility] Vdvmbzxoxs768947 [address] [place], [place] [address]Dr. Airam Tripathi Erythrocyte distribution width (RBC) [Ratio] 13.9 % Normal 11.0-15.0 The [facility] Comment on above: Performed By: #### C BC ####[facility] Ffeoahfgxy007[address] [place], [place] [address]Dr. Airam Tripathi Hematocrit (Bld) [Volume fraction] 31.2 % Critically low 36.0-48.0 The [facility] Comment on above: Performed By: #### C BC ####[facility] Egxxwjrhnn4478[address] [place], [place] [address]Dr. Airam Tripathi Hemoglobin (Bld) [Mass/Vol] 9.9 g/dL Critically low 12.0-16.0 The [facility] Comment on above: Performed By: #### C BC ####[facility] Vtlakujllr7838[address] [place], [place] [address]Dr. Airam Tripathi IG # 0.03 10e3/ul Normal 0.00-0.03 The [facility] Comment on above: Performed By: #### C BC ####[facility] Apqxvivsde8720 [place] [phone]. Airam Tripathi IG % 0.6 % Critically high 0.0-0.5 The [facility] Comment on above: Performed By: #### C BC ####[facility] Wdunwdnxfi0224 [place] [address]Dr. Airam Deuce LYMPH # 1.5 103/ul Normal 1.2-3.8 The [facility] Comment on above: Performed By: #### C BC ####[facility] Opwrddsduo6118 [place] [address]Dr. Airam Deuce Lymphocytes/100 WBC (Bld) 29.4 % Normal 20.5-60.0 The [facility] Comment on above: Performed By: #### C BC ####[facility] Lztcwcgoup9944 [place] [address]Dr. Airam Deuce MANUAL DIFF REQ NO Normal The [facility] Comment on above: Performed By: #### C BC ####[facility] Nhvfqmorrq6918 [place] [address]Dr. Airam Tripathi MCH (RBC) [Entitic mass] 30.5 pg Normal 26.7-34.0 The [facility] Comment on above: Performed By: #### C BC ####[facility] Ldvfjcvnin6823 [place] [address]Dr. Airam Tripathi MCHC (RBC) [Mass/Vol] 31.7 g/dL Normal 29.9-35.2 The [facility] Comment on above: Performed By: #### C BC ####[facility] Tnxdtxwuvw4904 [place] [address]Dr. Airam Tripathi MCV (RBC) [Entitic vol] 96.0 fL Normal 81.0-99.0 The [facility] Comment on above: Performed By: #### C BC ####[facility] Kardfvxohw697[address] [place], [place] [address]Dr. Airam Deuce MONO # 0.4 103/ul Normal 0.3-0.8 The [facility] Comment on above: Performed By: #### C BC ####[facility] Xsxdprfpkl7118 [place] [address]Dr. Airam Tripathi Monocytes/100 WBC (Bld) 7.0 % Normal 1.7-12.0 The [facility] Comment on above: Performed By: #### C BC ####[facility] Ebjohbtkta0388 [place] [address]Dr. Airam Tripathi NEUT # 3.0 103/ul Normal 1.4-6.5 The [facility] Comment on above: Performed By: #### C BC ####[facility] Jplqquxfwu0372 [place] [address]Dr. Airam Tripathi Neutrophils/100 WBC (Bld) 60.2 % Normal 43.0-75.0 The [facility] Comment on above: Performed By: #### C BC ####[facility] Fzornqeoxm7180 [place] [address]Dr. Aiarm Tripathi Platelet mean volume (Bld) [Entitic vol] 9.6 fL Normal 9.5-13.5 The [facility] Comment on above: Performed By: #### C BC ####[facility] Geapkuwjpm0847 [place] [address]Dr. Airam Tripathi PLT 258 103/ul Normal 150-450 [facility] Comment on above: Performed By: #### C BC ####[facility] Xqszcfufql7649 [place] [address]Dr. Airam Tripathi RBC 3.25 106/ul Critically low 4.20-5.40 The [facility] Comment on above: Performed By: #### C BC ####[facility] Sbivkfrlny5471 [place] [address]Dr. Airam Tripathi WBC 5.0 103/ul Normal 4.0-11.0 The [facility] Comment on above: Performed By: #### C BC ####[facility] Dcgwretggk2592 [place] [address]Dr. Airam Deuce PROF 14(COMP METB)on 022 Albumin [Mass/Vol] 3.3 g/dL Critically low 3.4-5.0 [facility] Comment on above: Performed By: #### C MP ####[facility] Ckgtbxsrun1696 [place] [address]Dr. Airam Deuce Albumin/Globulin [Mass ratio] 1.1 {ratio} Normal [facility] Comment on above: Performed By: #### C MP ####[facility] Cuatcxaoug8439 [place] [address]Dr. Airam Deuce ALP [Catalytic activity/Vol] 106 U/L Normal 46-116 [facility] Comment on above: Performed By: #### C MP ####[facility] Ihldanetan2137 [place] [address]Dr. Selenaneil Tripathi ALT [Catalytic activity/Vol] 22 U/L Normal 14-59 [facility] Comment on above: Performed By: #### C MP ####[facility] Slkpwcdogp186047 [address] [place], [place] [address]Dr. Airam Tripathi Anion gap [Moles/Vol] 11.4 mmol/L Normal [facility] Comment on above: Performed By: #### C MP ####[facility] Hatgxzcpqs884847 [address] [place], [place] [address]Dr. Selenaneil Tripathi AST [Catalytic activity/Vol] 22 U/L Normal 15-37 [facility] Comment on above: Performed By: #### C MP ####[facility] Bkufwksqjs6101[address] [place], [place] [address]Dr. Airam Tripathi Bilirubin [Mass/Vol] 0.3 mg/dL Normal 0.2-1.0 [facility] Comment on above: Performed By: #### C MP ####[facility] Wqdyohukyo337647 [address] [place], [place] [address]Dr. Airam Tripathi Calcium [Mass/Vol] 8.1 mg/dL Critically low 8.5-10.1 [facility] Comment on above: Performed By: #### C MP ####[facility] Ttlhwgxfyx932747 [address] [place], [place] [address]Dr. Airam Tripathi Chloride [Moles/Vol] 100 mmol/L Normal 98-107 The [facility] Comment on above: Performed By: #### C MP ####[facility] Uolgotcimc723447 [address] [place], [place] [address]Dr. Airam Deuce CO2 [Moles/Vol] 25.6 mmol/L Normal 21.0-32.0 [facility] Comment on above: Performed By: #### C MP ####[facility] Lsoezrezvz8659 [place] [address]Dr. Airam Tripathi Creatinine [Mass/Vol] 1.21 mg/dL Critically high 0.55-1.02 [facility] Comment on above: Performed By: #### C MP ####[facility] Hmfzsbpmah4598[address] [place], [place] [address]Dr. Airam Deuce EGFR-AF QATARI 55 mL/min/1.73m2 Critically low >=60 [facility] Comment on above: Performed By: #### C MP ####[facility] Fhoedbkjqd414547 [address] [place], [place] [address]Dr. Selenaneil Deuce EGFR-NON AF QATARI 45 mL/min/1.73m2 Critically low >=60 The [facility] Comment on above: Performed By: #### C MP ####[facility] Iwvskdvuvi1364[address] [place], [place] [address]Dr. Airam Deuce Globulin (S) [Mass/Vol] 3.0 g/dL Normal [facility] Comment on above: Performed By: #### C MP ####[facility] Trmxyaxpql207[address] [place], [place] [address]Dr. Selenaneil Tripathi Glucose [Mass/Vol] 84 mg/dL Normal 74-106 The [facility] Comment on above: Performed By: #### C MP ####[facility] Mrosxysdqg652147 [address] [place], [place] [address]Dr. Airam Deuce Potassium [Moles/Vol] 4.0 mmol/L Normal 3.5-5.1 The [facility] Comment on above: Performed By: #### C MP ####[facility] Xemrazhzwx283447 [address] [place], [place] [address]Dr. Airam Deuce Protein [Mass/Vol] 6.3 g/dL Critically low 6.4-8.2 Th [facility] Comment on above: Performed By: #### C MP ####[facility] Qndqwwjuea642947 [address] [place], [place] [address]Dr. Airam Tripathi Sodium [Moles/Vol] 133 mmol/L Critically low 136-145 Th [facility] Comment on above: Performed By: #### C MP ####[facility] Yinxmtsxus4157[address] [place], [place] [address]Dr. Airam Tripathi Urea nitrogen [Mass/Vol] 29.0 mg/dL Critically high 7.0-18.0 [facility] Comment on above: Performed By: #### C MP ####[facility] Wvfvdstqjt179347 [address] [place], [place] [address]Dr. Airam Tripathi Urea nitrogen/Creatinine [Mass ratio] 24.0 mg/mg Normal [facility] Comment on above: Performed By: #### C MP ####[facility] Ohxedsmeya340747 [address] [place], [place] [address]Dr. Airam Tripathi OSMOLALITYon 03-12-2022 Osmolality [Osmolality] 285 mosm/kg Normal 275-295 [facility] Comment on above: Performed By: #### O SMO ####[facility] Rzazjhoupl1830[address] [place], [place] [address]Dr. Airam Tripathi CBC AUTO DIFFon 03-10-2022 BASO # 0.0 103/ul Normal 0.0-0.1 The [facility] Comment on above: Performed By: #### C BC ####[facility] Eiioocwyhh4575[address] [place], [place] [address]Dr. Airam Deuce Basophils/100 WBC (Bld) 0.3 % Normal 0.2-2.0 The [facility] Comment on above: Performed By: #### C BC ####[facility] Rzmnhitbbt3647[address] [place], [place] [address]Dr. Airam Tripathi EO # 0.2 103/ul Normal 0.0-0.7 The [facility] Comment on above: Performed By: #### C BC ####[facility] Snlqdikqil2568[address] [place], [place] [address]Dr. Airam Deuce Eosinophils/100 WBC (Bld) 2.7 % Normal 0.9-7.0 The [facility] Comment on above: Performed By: #### C BC ####[facility] Yzvfmawqin5315 [place] [address]Dr. Airam Tripathi Erythrocyte distribution width (RBC) [Ratio] 14.4 % Normal 11.0-15.0 The [facility] Comment on above: Performed By: #### C BC ####[facility] Jnpoqbmuro5860 [place] [address]Dr. Airam Tripathi Hematocrit (Bld) [Volume fraction] 32.5 % Critically low 36.0-48.0 The [facility] Comment on above: Performed By: #### C BC ####[facility] Afnyfpdmhl39034[address] [place], [place] [address]Dr. Airam Tripathi Hemoglobin (Bld) [Mass/Vol] 10.1 g/dL Critically low 12.0-16.0 [facility] Comment on above: Performed By: #### C BC ####[facility] Reigziajjq1965[address] [place], [place] [address]Dr. Selenaneil Tripathi IG # 0.03 10e3/ul Normal 0.00-0.03 The [facility] Comment on above: Performed By: #### C BC ####[facility] Laowisvtnm2355[address] [place], [place] [address]Dr. Airam Tripathi IG % 0.4 % Normal 0.0-0.5 The [facility] Comment on above: Performed By: #### C BC ####[facility] Mansjhlkxu035[address] [place], [place] [address]Dr. Selenaneil Tripathi LYMPH # 1.4 103/ul Normal 1.2-3.8 The [facility] Comment on above: Performed By: #### C BC ####[facility] Diitawofnk647[address] [place], [place] [address]Dr. Selenaneil Tripathi Lymphocytes/100 WBC (Bld) 19.4 % Critically low 20.5-60.0 The [facility] Comment on above: Performed By: #### C BC ####[facility] Bujwwwcrgw045[address] [place], [place] [address]Dr. Selenaneil Tripathi MANUAL DIFF REQ NO Normal [facility] Comment on above: Performed By: #### C BC ####[facility] Cfpkytrupv5300 [place] [address]Dr. Airam Tripathi MCH (RBC) [Entitic mass] 30.6 pg Normal 26.7-34.0 [facility] Comment on above: Performed By: #### C BC ####[facility] Whumcyscom[address] [place] [address]Dr. Airam Tripathi MCHC (RBC) [Mass/Vol] 31.1 g/dL Normal 29.9-35.2 [facility] Comment on above: Performed By: #### C BC ####[facility] Igmxnkzmqp40[address] [place], [place] [address]Dr. Airam Tripathi MCV (RBC) [Entitic vol] 98.5 fL Normal 81.0-99.0 [facility] Comment on above: Performed By: #### C BC ####[facility] Xdiwjlhfda3[address] [place], [place] [address]Dr. Airam Deuce MONO # 0.5 103/ul Normal 0.3-0.8 [facility] Comment on above: Performed By: #### C BC ####[facility] Qkpvuecwcj2907[address] [place], [place] [address]Dr. Airam Deuce Monocytes/100 WBC (Bld) 6.7 % Normal 1.7-12.0 [facility] Comment on above: Performed By: #### C BC ####[facility] Kdlhekojku95[address] [place], [place] [address]Dr. Airam Tripathi NEUT # 5.2 103/ul Normal 1.4-6.5 [facility] Comment on above: Performed By: #### C BC ####[facility] Wigmrgbbyn[address] [place], [place] [address]Dr. Airam Deuce Neutrophils/100 WBC (Bld) 70.5 % Normal 43.0-75.0 [facility] Comment on above: Performed By: #### C BC ####[facility] Kfcctxefpt1327[address] [place], [place] [address]Dr. Airam Deuce Platelet mean volume (Bld) [Entitic vol] 9.8 fL Normal 9.5-13.5 [facility] Comment on above: Performed By: #### C BC ####[facility] Rudnzijhwa[address] [place] [phone]. Airam Tripathi PLT 277 103/ul Normal 150-450 [facility] Comment on above: Performed By: #### C BC ####[facility] Opquhakjwm2480 [place] [phone]. Airam Tripathi RBC 3.30 106/ul Critically low 4.20-5.40 [facility] Comment on above: Performed By: #### C BC ####[facility] Czdvjfuenc0165 [place] [address]Dr. Airam Tripathi WBC 7.4 103/ul Normal 4.0-11.0 [facility] Comment on above: Performed By: #### C BC ####[facility] Segxznvtdd8746 [place] [address]Dr. Airam Tripathi PROF 14(COMP METB)on 022 Albumin [Mass/Vol] 3.6 g/dL Normal 3.4-5.0 [facility] Comment on above: Performed By: #### C MP ####[facility] Vpzertqsni4365 [place] [address]Dr. Airam Tripathi Albumin/Globulin [Mass ratio] 1.1 {ratio} Normal [facility] Comment on above: Performed By: #### C MP ####[facility] Jrrdxxfeis2796 [place] [address]Dr. Airam Tripathi ALP [Catalytic activity/Vol] 112 U/L Normal 46-116 [facility] Comment on above: Performed By: #### C MP ####[facility] Whqrodimqt9625 [place] [address]Dr. Airam Tripathi ALT [Catalytic activity/Vol] 26 U/L Normal 14-59 [facility] Comment on above: Performed By: #### C MP ####[facility] Oylztsaewq8748 [place] [address]Dr. Airam Tripathi Anion gap [Moles/Vol] 12.0 mmol/L Normal [facility] Comment on above: Performed By: #### C MP ####[facility] Dfbqepenbw4146 [place] [address]Dr. Airam Tripathi AST [Catalytic activity/Vol] 25 U/L Normal 15-37 [facility] Comment on above: Performed By: #### C MP ####[facility] Ewhromnwud429[address] [place], [place] [address]Dr. Airam Tripathi Bilirubin [Mass/Vol] 0.4 mg/dL Normal 0.2-1.0 [facility] Comment on above: Performed By: #### C MP ####[facility] Udmsyxiqft80[address] [place], [place] [address]Dr. Airam Tripathi Calcium [Mass/Vol] 8.9 mg/dL Normal 8.5-10.1 [facility] Comment on above: Performed By: #### C MP ####[facility] Xeuymxtvub1844[address] [place], [place] [address]Dr. Airam Tripathi Chloride [Moles/Vol] 101 mmol/L Normal 98-107 [facility] Comment on above: Performed By: #### C MP ####[facility] Udbsmjhdjk700847 [address] [place], [place] [address]Dr. Airam Tripathi CO2 [Moles/Vol] 24.0 mmol/L Normal 21.0-32.0 [facility] Comment on above: Performed By: #### C MP ####[facility] Qoknnlrlhk1188[address] [place], [place] [address]Dr. Airam Tripathi Creatinine [Mass/Vol] 1.51 mg/dL Critically high 0.55-1.02 [facility] Comment on above: Performed By: #### C MP ####[facility] Ejonaochrt8980[address] [place], [place] [address]Dr. Airam Tripathi EGFR-AF QATARI 43 mL/min/1.73m2 Critically low >=60 [facility] Comment on above: Performed By: #### C MP ####[facility] Qwobtoqbky144[address] [place], [place] [address]Dr. Airam Tripathi EGFR-NON AF QATARI 35 mL/min/1.73m2 Critically low >=60 [facility] Comment on above: Performed By: #### C MP ####[facility] Sedybeghes[address] [place] [address]Dr. Airam Tripathi Globulin (S) [Mass/Vol] 3.2 g/dL Normal [facility] Comment on above: Performed By: #### C MP ####[facility] Mefvionyuo0624[address] [place], [place] [address]Dr. Airam Tripathi Glucose [Mass/Vol] 82 mg/dL Normal 74-106 [facility] Comment on above: Performed By: #### C MP ####[facility] Wplfpqhxip7707[address] [place], [place] [address]Dr. Airam Tripathi Potassium [Moles/Vol] 4.0 mmol/L Normal 3.5-5.1 [facility] Comment on above: Performed By: #### C MP ####[facility] Orvadanyvs6907[address] [place], [place] [address]Dr. Airam Tripathi Protein [Mass/Vol] 6.8 g/dL Normal 6.4-8.2 [facility] Comment on above: Performed By: #### C MP ####[facility] Bnhyvmmzvx964[address] [place], [place] [address]Dr. Airam Tripathi Sodium [Moles/Vol] 133 mmol/L Critically low 136-145 [facility] Comment on above: Performed By: #### C MP ####[facility] Vjbqugorka0312[address] [place], [place] [address]Dr. Airam Tripathi Urea nitrogen [Mass/Vol] 37.0 mg/dL Critically high 7.0-18.0 [facility] Comment on above: Performed By: #### C MP ####[facility] Bvohhnrdjl568347 [address] [place], [place] [address]Dr. Airam Tripathi Urea nitrogen/Creatinine [Mass ratio] 24.5 mg/mg Normal [facility] Comment on above: Performed By: #### C MP ####[facility] Yplmcgghta1085[address] [place], [place] [address]Dr. Airam Tripathi OSMOLALITYon 03-07-2022 Osmolality [Osmolality] 284 mosm/kg Normal 275-295 [facility] Comment on above: Performed By: #### O SMO ####[facility] Ngqwjmijei86[address] [place], [place] [address]Dr. Airam Tripathi CBC AUTO DIFFon 03-04-2022 BASO # 0.0 103/ul Normal 0.0-0.1 [facility] Comment on above: Performed By: #### C BC ####[facility] Zandyhhmac[address] [place] [phone]. Airam Tripathi Basophils/100 WBC (Bld) 0.3 % Normal 0.2-2.0 [facility] Comment on above: Performed By: #### C BC ####[facility] Pnhgcspdnp9974 [place] [address]Dr. Airam Tripathi EO # 0.1 103/ul Normal 0.0-0.7 [facility] Comment on above: Performed By: #### C BC ####[facility] Mkpfynpoeg297[address] [place], [place] [address]Dr. Airam Deuce Eosinophils/100 WBC (Bld) 2.0 % Normal 0.9-7.0 [facility] Comment on above: Performed By: #### C BC ####[facility] Ynecyslqpw12[address] [place], [place] [address]Dr. Airam Tripathi Erythrocyte distribution width (RBC) [Ratio] 14.5 % Normal 11.0-15.0 [facility] Comment on above: Performed By: #### C BC ####[facility] Ognqrugqef6729 [place] [address]Dr. Airam Tripathi Hematocrit (Bld) [Volume fraction] 35.4 % Critically low 36.0-48.0 [facility] Comment on above: Performed By: #### C BC ####[facility] Fqmgfpnanf2228 [place] [address]Dr. Airam Tripathi Hemoglobin (Bld) [Mass/Vol] 11.0 g/dL Critically low 12.0-16.0 [facility] Comment on above: Performed By: #### C BC ####[facility] Jcxqginnhe4510[address] [place], [place] [address]Dr. Airam Tripathi IG # 0.03 10e3/ul Normal 0.00-0.03 [facility] Comment on above: Performed By: #### C BC ####[facility] Qzlrhecsxn8047 [place] [phone]. Airam Tripathi IG % 0.4 % Normal 0.0-0.5 [facility] Comment on above: Performed By: #### C BC ####[facility] Eppantlakt8948 [place] [phone]. Airam Tripathi LYMPH # 1.7 103/ul Normal 1.2-3.8 [facility] Comment on above: Performed By: #### C BC ####[facility] Wlmhwswsyy9489 [place] [phone]. Airam Tripathi Lymphocytes/100 WBC (Bld) 23.8 % Normal 20.5-60.0 [facility] Comment on above: Performed By: #### C BC ####[facility] Ppsxmitmgx0286 [place] [address]Dr. Airam Tripathi MANUAL DIFF REQ NO Normal [facility] Comment on above: Performed By: #### C BC ####[facility] Zpuavpxtdq1659 [place] [phone]. Airam Tripathi MCH (RBC) [Entitic mass] 30.0 pg Normal 26.7-34.0 [facility] Comment on above: Performed By: #### C BC ####[facility] Udsgkuteqj8782 [place] [phone]. Airam Tripathi MCHC (RBC) [Mass/Vol] 31.1 g/dL Normal 29.9-35.2 [facility] Comment on above: Performed By: #### C BC ####[facility] Pgtmnwqyna1225 [place] [phone]. Airam Tripathi MCV (RBC) [Entitic vol] 96.5 fL Normal 81.0-99.0 [facility] Comment on above: Performed By: #### C BC ####[facility] Ncwjgislhw7379 [place] [phone]. Airam Tripathi MONO # 0.5 103/ul Normal 0.3-0.8 [facility] Comment on above: Performed By: #### C BC ####[facility] Arlrmhmemj5040 [place] [phone]. Airam Tripathi Monocytes/100 WBC (Bld) 6.6 % Normal 1.7-12.0 [facility] Comment on above: Performed By: #### C BC ####[facility] Wnbqjjihnz3240 [place] [phone]. Airam Tripathi NEUT # 4.7 103/ul Normal 1.4-6.5 [facility] Comment on above: Performed By: #### C BC ####[facility] Vfjrjqrxlz8407 [place] [phone]. Airam Tripathi Neutrophils/100 WBC (Bld) 66.9 % Normal 43.0-75.0 [facility] Comment on above: Performed By: #### C BC ####[facility] Gfktlzfrgv3074 [place] [address]Dr. Airam Tripathi Platelet mean volume (Bld) [Entitic vol] 10.2 fL Normal 9.5-13.5 [facility] Comment on above: Performed By: #### C BC ####[facility] Yxpbznqnxy8785 [place] [phone]. Airam Tripathi PLT 270 103/ul Normal 150-450 [facility] Comment on above: Performed By: #### C BC ####[facility] Njwjhizawx7238 [place] [phone]. Airam Tripathi RBC 3.67 106/ul Critically low 4.20-5.40 [facility] Comment on above: Performed By: #### C BC ####[facility] Wcimrnsmmw1386 [place] [address]Dr. Airam Tripathi WBC 7.0 103/ul Normal 4.0-11.0 [facility] Comment on above: Performed By: #### C BC ####[facility] Nvshkcpnwj6681 [place] [address]Dr. Airam Tripathi PROF 14(COMP METB)on 022 Albumin [Mass/Vol] 3.3 g/dL Critically low 3.4-5.0 [facility] Comment on above: Performed By: #### C MP ####[facility] Kicfmanyni2041 [place] [phone]. Airam Tripathi Albumin/Globulin [Mass ratio] 1.0 {ratio} Normal [facility] Comment on above: Performed By: #### C MP ####[facility] Zvefahyjcz5510 [place] [phone]. Airam Tripathi ALP [Catalytic activity/Vol] 107 U/L Normal 46-116 [facility] Comment on above: Performed By: #### C MP ####[facility] Gqulxhhywa6614 [place] [address]Dr. Airam Deuce ALT [Catalytic activity/Vol] 23 U/L Normal 14-59 [facility] Comment on above: Performed By: #### C MP ####[facility] Ndpomvobtb48[address] [place], [place] [address]Dr. Airam Deuce Anion gap [Moles/Vol] 13.0 mmol/L Normal [facility] Comment on above: Performed By: #### C MP ####[facility] Tkgblhtvsm475[address] [place], [place] [address]Dr. Airam Deuce AST [Catalytic activity/Vol] 30 U/L Normal 15-37 [facility] Comment on above: Performed By: #### C MP ####[facility] Sdtmnsfhuw514[address] [place], [place] [address]Dr. Airam Deuce Bilirubin [Mass/Vol] 0.2 mg/dL Normal 0.2-1.0 [facility] Comment on above: Performed By: #### C MP ####[facility] Exsgqenlxt1729[address] [place], [place] [address]Dr. Airam Deuce Calcium [Mass/Vol] 8.8 mg/dL Normal 8.5-10.1 [facility] Comment on above: Performed By: #### C MP ####[facility] Kycavofsfu711[address] [place], [place] [address]Dr. Airam Deuce Chloride [Moles/Vol] 103 mmol/L Normal 98-107 [facility] Comment on above: Performed By: #### C MP ####[facility] Crzfzfyjiv400[address] [place], [place] [address]Dr. Airam Deuce CO2 [Moles/Vol] 24.9 mmol/L Normal 21.0-32.0 [facility] Comment on above: Performed By: #### C MP ####[facility] Jdomxblydo7039 [place] [address]Dr. Selenaneil Tripathi Creatinine [Mass/Vol] 1.06 mg/dL Critically high 0.55-1.02 [facility] Comment on above: Performed By: #### C MP ####[facility] Jlituexcml876[address] [place], [place] [address]Dr. Airam Deuce EGFR-AF QATARI >60 Normal >=60 [facility] Comment on above: Performed By: #### C MP ####[facility] Aepdudmqhp8495[address] [place], [place] [address]Dr. Airam Tripathi EGFR-NON AF QATARI 53 mL/min/1.73m2 Critically low >=60 [facility] Comment on above: Performed By: #### C MP ####[facility] Crrdjuozls26[address] [place], [place] [address]Dr. Selenaneil Tripathi Globulin (S) [Mass/Vol] 3.2 g/dL Normal [facility] Comment on above: Performed By: #### C MP ####[facility] Kmljwnmsow717[address] [place], [place] [address]Dr. Airam Tripathi Glucose [Mass/Vol] 91 mg/dL Normal 74-106 [facility] Comment on above: Performed By: #### C MP ####[facility] Kpmiodxicr008[address] [place], [place] [address]Dr. Airam Tripathi Potassium [Moles/Vol] 3.9 mmol/L Normal 3.5-5.1 [facility] Comment on above: Performed By: #### C MP ####[facility] Ezagaxiphf298247 [address] [place], [place] [address]Dr. Airam Tripathi Protein [Mass/Vol] 6.5 g/dL Normal 6.4-8.2 [facility] Comment on above: Performed By: #### C MP ####[facility] Ipzzmhjjsv5987[address] [place], [place] [address]Dr. Airam Tripathi Sodium [Moles/Vol] 137 mmol/L Normal 136-145 [facility] Comment on above: Performed By: #### C MP ####[facility] Qahmfxnwep8548 [place] [address]Dr. Airam Tripathi Urea nitrogen [Mass/Vol] 27.0 mg/dL Critically high 7.0-18.0 [facility] Comment on above: Performed By: #### C MP ####[facility] Ocmqpknwdt6073 [place] [address]Dr. Airam Tripathi Urea nitrogen/Creatinine [Mass ratio] 25.5 mg/mg Normal [facility] Comment on above: Performed By: #### C MP ####[facility] Rzykcxfmxe2234[address] [place], [place] [address]Dr. Airam Tripathi OSMOLALITYon 03-03-2022 Osmolality [Osmolality] 383 mosm/kg Invalid Interpretation Code [id number] [facility] Comment on above: Result Comment: Ve rified by repeat analysis Performed By: #### O SMO ####[facility] Hiqapkpllw6414[address] [place], [place] [address]Dr. Airam Tripathi CBC AUTO DIFFon 02-22-2022 BASO # 0.0 103/ul Normal 0.0-0.1 [facility] Comment on above: Performed By: #### C BC ####[facility] Qialqammfa4312 [place] [address]Dr. Airam Tripathi Basophils/100 WBC (Bld) 0.4 % Normal 0.2-2.0 [facility] Comment on above: Performed By: #### C BC ####[facility] Jtdgjyijkx670[address] [place], [place] [address]Dr. Airam Tripathi EO # 0.2 103/ul Normal 0.0-0.7 [facility] Comment on above: Performed By: #### C BC ####[facility] Maumsuazja6603 [place] [address]Dr. Airam Tripathi Eosinophils/100 WBC (Bld) 3.9 % Normal 0.9-7.0 [facility] Comment on above: Performed By: #### C BC ####[facility] Zwbymfhmmy7145 [place] [address]Dr. Airam Tripathi Erythrocyte distribution width (RBC) [Ratio] 13.9 % Normal 11.0-15.0 [facility] Comment on above: Performed By: #### C BC ####[facility] Uzamfwchvq4309 [place] [address]Dr. Airam Tripathi Hematocrit (Bld) [Volume fraction] 32.7 % Critically low 36.0-48.0 [facility] Comment on above: Performed By: #### C BC ####[facility] Pgeaofftqb499[address] [place], [place] [address]Dr. Airam Tripathi Hemoglobin (Bld) [Mass/Vol] 10.7 g/dL Critically low 12.0-16.0 [facility] Comment on above: Performed By: #### C BC ####[facility] Phxixshdta0413[address] [place], [place] [address]Dr. Airam Tripathi IG # 0.02 10e3/ul Normal 0.00-0.03 [facility] Comment on above: Performed By: #### C BC ####[facility] Wbjucmojbf543[address] [place], [place] [address]Dr. Airam Tripathi IG % 0.4 % Normal 0.0-0.5 [facility] Comment on above: Performed By: #### C BC ####[facility] Owmjrxjqco[address] [place], [place] [address]Dr. Airam Tripathi LYMPH # 1.2 103/ul Normal 1.2-3.8 [facility] Comment on above: Performed By: #### C BC ####[facility] Eacmppodit08[address] [place], [place] [address]Dr. Airam Tripathi Lymphocytes/100 WBC (Bld) 25.0 % Normal 20.5-60.0 [facility] Comment on above: Performed By: #### C BC ####[facility] Lzrpcxbmcq9427[address] [place], [place] [address]Dr. Airam Tripathi MANUAL DIFF REQ NO Normal [facility] Comment on above: Performed By: #### C BC ####[facility] Mgiyxbwvxm5817 [place] [phone]. Airam Tripathi MCH (RBC) [Entitic mass] 30.7 pg Normal 26.7-34.0 [facility] Comment on above: Performed By: #### C BC ####[facility] Olhsohxnlb1568 [place] [phone]. Airam Tripathi MCHC (RBC) [Mass/Vol] 32.7 g/dL Normal 29.9-35.2 [facility] Comment on above: Performed By: #### C BC ####[facility] Aumnrmygbj8456 [place] [phone]. Airam Tripathi MCV (RBC) [Entitic vol] 93.7 fL Normal 81.0-99.0 [facility] Comment on above: Performed By: #### C BC ####[facility] Lswewuzpxx4600[address] [place], [place] [address]Dr. Airam Tripathi MONO # 0.4 103/ul Normal 0.3-0.8 [facility] Comment on above: Performed By: #### C BC ####[facility] Uoblgsolii298[address] [place], [place] [address]Dr. Selenaneil Tripathi Monocytes/100 WBC (Bld) 7.5 % Normal 1.7-12.0 [facility] Comment on above: Performed By: #### C BC ####[facility] Bhrbnpgrba[address] [place], [place] [address]Dr. Airam Tripathi NEUT # 3.1 103/ul Normal 1.4-6.5 [facility] Comment on above: Performed By: #### C BC ####[facility] Dltbqczioh[address] [place], [place] [address]Dr. Selenaneil Tripathi Neutrophils/100 WBC (Bld) 62.8 % Normal 43.0-75.0 [facility] Comment on above: Performed By: #### C BC ####[facility] Dwmayvujbl8[address] [place], [place] [address]Dr. Selenaneil Deuce Platelet mean volume (Bld) [Entitic vol] 9.5 fL Normal 9.5-13.5 [facility] Comment on above: Performed By: #### C BC ####[facility] Tvxglphohx5893 [place] [phone]. Airam Tripathi PLT 250 103/ul Normal 150-450 [facility] Comment on above: Performed By: #### C BC ####[facility] Ggsidglysp1688 [place] [phone]. Airam Tripathi RBC 3.49 106/ul Critically low 4.20-5.40 [facility] Comment on above: Performed By: #### C BC ####[facility] Zhedwwpcoa9395 [place] [phone]. Airam Tripathi WBC 4.9 103/ul Normal 4.0-11.0 [facility] Comment on above: Performed By: #### C BC ####[facility] Bhemsejasf4039 [place] [address]Dr. Selenaneil Tripathi PROF 14(COMP METB)on 022 Albumin [Mass/Vol] 3.3 g/dL Critically low 3.4-5.0 [facility] Comment on above: Performed By: #### C MP ####[facility] Atnfcinqss7515 [place] [phone]. Airam Deuce Albumin/Globulin [Mass ratio] 1.0 {ratio} Normal [facility] Comment on above: Performed By: #### C MP ####[facility] Nncxtfzygh1831 [place] [address]Dr. Airam Deuce ALP [Catalytic activity/Vol] 127 U/L Critically high 46-116 [facility] Comment on above: Performed By: #### C MP ####[facility] Nvxzawbhts0935 [place] [phone]. Airam Deuce ALT [Catalytic activity/Vol] 22 U/L Normal 14-59 [facility] Comment on above: Performed By: #### C MP ####[facility] Drspcijcpj2672 [place] [phone]. Selenaneil Deuce Anion gap [Moles/Vol] 11.9 mmol/L Normal [facility] Comment on above: Performed By: #### C MP ####[facility] Qmhfimkzjh0071 [place] [phone]. Airam Tripathi AST [Catalytic activity/Vol] 21 U/L Normal 15-37 [facility] Comment on above: Performed By: #### C MP ####[facility] Itsivnyglq4043 [place] [phone]. Airam Tripathi Bilirubin [Mass/Vol] 0.3 mg/dL Normal 0.2-1.0 [facility] Comment on above: Performed By: #### C MP ####[facility] Totlicqgfq1207 [place] [phone]. Airam Tripathi Calcium [Mass/Vol] 8.6 mg/dL Normal 8.5-10.1 [facility] Comment on above: Performed By: #### C MP ####[facility] Ccwvopaekc7807 [place] [phone]. Airam Tripathi Chloride [Moles/Vol] 105 mmol/L Normal 98-107 [facility] Comment on above: Performed By: #### C MP ####[facility] Ikrwdkeqbp2427 [place] [phone]. Airam Tripathi CO2 [Moles/Vol] 23.6 mmol/L Normal 21.0-32.0 [facility] Comment on above: Performed By: #### C MP ####[facility] Xsatilmceu0654 [place] [phone]. Airam Tripathi Creatinine [Mass/Vol] 1.29 mg/dL Critically high 0.55-1.02 [facility] Comment on above: Performed By: #### C MP ####[facility] Uasdsufbwp8420 [place] [phone]. Airam Tripathi EGFR-AF QATARI 51 mL/min/1.73m2 Critically low >=60 [facility] Comment on above: Performed By: #### C MP ####[facility] Wmrcvbtumh94[address] [place] [id number]. Airam Tripathi EGFR-NON AF QATARI 42 mL/min/1.73m2 Critically low >=60 [facility] Comment on above: Performed By: #### C MP ####[facility] Qiqobgrvyh2247 [place] [phone]. Airam Tripathi Globulin (S) [Mass/Vol] 3.2 g/dL Normal [facility] Comment on above: Performed By: #### C MP ####[facility] Famjfrvdny36[address] [place] [address]Dr. Airam Tripathi Glucose [Mass/Vol] 94 mg/dL Normal 74-106 [facility] Comment on above: Performed By: #### C MP ####[facility] Ryesrpgqbj2378 [place] [address]Dr. Airam Tripathi Potassium [Moles/Vol] 3.5 mmol/L Normal 3.5-5.1 [facility] Comment on above: Performed By: #### C MP ####[facility] Yqwycnbzkz[address] [place], [place] [address]Dr. Airam Tripathi Protein [Mass/Vol] 6.5 g/dL Normal 6.4-8.2 [facility] Comment on above: Performed By: #### C MP ####[facility] Ejvjjtyrts[address] [place], [place] [address]Dr. Airam Tripathi Sodium [Moles/Vol] 137 mmol/L Normal 136-145 [facility] Comment on above: Performed By: #### C MP ####[facility] Oxphvlrler[address] [place], [place] [address]Dr. Airam Tripathi Urea nitrogen [Mass/Vol] 37.0 mg/dL Critically high 7.0-18.0 [facility] Comment on above: Performed By: #### C MP ####[facility] Htgefalpvz[address] [place], [place] [address]Dr. Airam Tripathi Urea nitrogen/Creatinine [Mass ratio] 28.7 mg/mg Normal [facility] Comment on above: Performed By: #### C MP ####[facility] Ayxskwltte7567[address] [place], [place] [address]Dr. Airam Tripathi OSMOLALITYon 02-20-2022 Osmolality [Osmolality] 283 mosm/kg Normal 275-295 [facility] Comment on above: Performed By: #### O SMO ####[facility] Wukdcbkvmk1594 [place] [phone]. Airam Tripathi CBC AUTO DIFFon 02-17-2022 BASO # 0.0 103/ul Normal 0.0-0.1 [facility] Comment on above: Performed By: #### C BC ####[facility] Asdmrzcdbb4[address] [place], [place] [address]Dr. Selenaneil Tripathi Basophils/100 WBC (Bld) 0.3 % Normal 0.2-2.0 [facility] Comment on above: Performed By: #### C BC ####[facility] Bmrnageaet[address] [place], [place] [address]Dr. Selenaneil Tripathi EO # 0.1 103/ul Normal 0.0-0.7 [facility] Comment on above: Performed By: #### C BC ####[facility] Wheoxygqze782[address] [place], [place] [address]Dr. Airam Tripathi Eosinophils/100 WBC (Bld) 1.6 % Normal 0.9-7.0 [facility] Comment on above: Performed By: #### C BC ####[facility] Bpsiuezppw498[address] [place], [place] [address]Dr. Selenaneil Tripathi Erythrocyte distribution width (RBC) [Ratio] 13.4 % Normal 11.0-15.0 [facility] Comment on above: Performed By: #### C BC ####[facility] Tntouzfzcn094[address] [place], [place] [address]Dr. Selenaneil Tripathi Hematocrit (Bld) [Volume fraction] 31.4 % Critically low 36.0-48.0 [facility] Comment on above: Performed By: #### C BC ####[facility] Mskjmqvgan[address] [place], [place] [address]Dr. Airam Tripathi Hemoglobin (Bld) [Mass/Vol] 10.0 g/dL Critically low 12.0-16.0 [facility] Comment on above: Performed By: #### C BC ####[facility] Fybcumphea2924[address] [place], [place] [address]Dr. Airam Tripathi IG # 0.03 10e3/ul Normal 0.00-0.03 [facility] Comment on above: Performed By: #### C BC ####[facility] Tbbmbewfgk6878 [place] [phone]. Airam Tripathi IG % 0.4 % Normal 0.0-0.5 [facility] Comment on above: Performed By: #### C BC ####[facility] Amsnqtgptb4220 [place] [phone]. Airam Tripathi LYMPH # 1.6 103/ul Normal 1.2-3.8 [facility] Comment on above: Performed By: #### C BC ####[facility] Abhywwhwvk3070[address] [place], [place] [address]Dr. Airam Deuce Lymphocytes/100 WBC (Bld) 24.5 % Normal 20.5-60.0 [facility] Comment on above: Performed By: #### C BC ####[facility] Ccnlrymjga0[address] [place], [place] [address]Dr. Airam Tripathi MANUAL DIFF REQ NO Normal [facility] Comment on above: Performed By: #### C BC ####[facility] Bjzvhmayru4264[address] [place], [place] [address]Dr. Airam Tripathi MCH (RBC) [Entitic mass] 30.2 pg Normal 26.7-34.0 [facility] Comment on above: Performed By: #### C BC ####[facility] Taxptiklix[address] [place], [place] [address]Dr. Airam Tripathi MCHC (RBC) [Mass/Vol] 31.8 g/dL Normal 29.9-35.2 [facility] Comment on above: Performed By: #### C BC ####[facility] Ylavdxihlt[address] [place], [place] [address]Dr. Airam Tripathi MCV (RBC) [Entitic vol] 94.9 fL Normal 81.0-99.0 [facility] Comment on above: Performed By: #### C BC ####[facility] Wypiqwzmbw1737[address] [place], [place] [address]Dr. Airam Deuce MONO # 0.4 103/ul Normal 0.3-0.8 [facility] Comment on above: Performed By: #### C BC ####[facility] Geyxghfeol8489 [place] [phone]. Airam Tripathi Monocytes/100 WBC (Bld) 5.8 % Normal 1.7-12.0 [facility] Comment on above: Performed By: #### C BC ####[facility] Soymwnbgkn1039 [place] [phone]. Airam Tripathi NEUT # 4.5 103/ul Normal 1.4-6.5 [facility] Comment on above: Performed By: #### C BC ####[facility] Hlgbmprjsp7798 [place] [phone]. Airam Tripathi Neutrophils/100 WBC (Bld) 67.4 % Normal 43.0-75.0 [facility] Comment on above: Performed By: #### C BC ####[facility] Rydhfqkyyn7008 [place] [address]Dr. Airam Tripathi Platelet mean volume (Bld) [Entitic vol] 9.6 fL Normal 9.5-13.5 [facility] Comment on above: Performed By: #### C BC ####[facility] Oxzqrawqbi8276 [place] [address]Dr. Airam Tripathi PLT 251 103/ul Normal 150-450 [facility] Comment on above: Performed By: #### C BC ####[facility] Tvqxhyzozm7139 [place] [phone]. Airam Tripathi RBC 3.31 106/ul Critically low 4.20-5.40 [facility] Comment on above: Performed By: #### C BC ####[facility] Xedadovcmw95[address] [place], [place] [address]Dr. Airam Tripathi WBC 6.7 103/ul Normal 4.0-11.0 [facility] Comment on above: Performed By: #### C BC ####[facility] Ecvrchlxzp0626 [place] [address]Dr. Airam Tripathi PROF 14(COMP METB)on 022 Albumin [Mass/Vol] 3.5 g/dL Normal 3.4-5.0 [facility] Comment on above: Performed By: #### C MP ####[facility] Rjljgvrmuk2985 [place] [address]Dr. Airam Deuce Albumin/Globulin [Mass ratio] 1.2 {ratio} Normal [facility] Comment on above: Performed By: #### C MP ####[facility] Kerzseliun8800 [place] [address]Dr. Airam Tripathi ALP [Catalytic activity/Vol] 130 U/L Critically high 46-116 [facility] Comment on above: Performed By: #### C MP ####[facility] Chdddnepwz5812 [place] [address]Dr. Airam Deuce ALT [Catalytic activity/Vol] 18 U/L Normal 14-59 [facility] Comment on above: Performed By: #### C MP ####[facility] Uxhqseckgq5[address] [place], [place] [address]Dr. Airam Tripathi Anion gap [Moles/Vol] 14.0 mmol/L Normal [facility] Comment on above: Performed By: #### C MP ####[facility] Pnipjbkidn196[address] [place], [place] [address]Dr. Selenaneil Tripathi AST [Catalytic activity/Vol] 20 U/L Normal 15-37 [facility] Comment on above: Performed By: #### C MP ####[facility] Buklexvjpo10[address] [place], [place] [address]Dr. Airam Tripathi Bilirubin [Mass/Vol] 0.3 mg/dL Normal 0.2-1.0 [facility] Comment on above: Performed By: #### C MP ####[facility] Rzngopliwq813[address] [place], [place] [address]Dr. Airam Tripathi Calcium [Mass/Vol] 8.5 mg/dL Normal 8.5-10.1 [facility] Comment on above: Performed By: #### C MP ####[facility] Vammybfqrz18[address] [place], [place] [address]Dr. Airam Tripathi Chloride [Moles/Vol] 100 mmol/L Normal 98-107 [facility] Comment on above: Performed By: #### C MP ####[facility] Zoiibywjuz6033 [place] [phone]. Airam Tripathi CO2 [Moles/Vol] 22.7 mmol/L Normal 21.0-32.0 [facility] Comment on above: Performed By: #### C MP ####[facility] Txyycahyyl4592 [place] [phone]. Airam Tripathi Creatinine [Mass/Vol] 1.28 mg/dL Critically high 0.55-1.02 [facility] Comment on above: Performed By: #### C MP ####[facility] Abnuwlawdk9501 [place] [phone]. Airam Tripathi EGFR-AF QATARI 52 mL/min/1.73m2 Critically low >=60 [facility] Comment on above: Performed By: #### C MP ####[facility] Dzopcmkfth8610 [place] [phone]. Airam Tripathi EGFR-NON AF QATARI 43 mL/min/1.73m2 Critically low >=60 [facility] Comment on above: Performed By: #### C MP ####[facility] Sbetgbibjl0412 [place] [phone]. Airam Tripathi Globulin (S) [Mass/Vol] 2.9 g/dL Normal [facility] Comment on above: Performed By: #### C MP ####[facility] Wsimswqslm1417 [place] [phone]. Airam Tripathi Glucose [Mass/Vol] 93 mg/dL Normal 74-106 [facility] Comment on above: Performed By: #### C MP ####[facility] Zarwkrsyly9127 [place] [phone]. Airam Tripathi Potassium [Moles/Vol] 3.7 mmol/L Normal 3.5-5.1 [facility] Comment on above: Performed By: #### C MP ####[facility] Lbtdibqqfn1437 [place] [phone]. Airam Tripathi Protein [Mass/Vol] 6.4 g/dL Normal 6.4-8.2 [facility] Comment on above: Performed By: #### C MP ####[facility] Vwzghnsapr7955 [place] [phone]. Airam Tripathi Sodium [Moles/Vol] 133 mmol/L Critically low 136-145 [facility] Comment on above: Performed By: #### C MP ####[facility] Fwyldcqnwa8[address] [place], [place] [address]Dr. Airam Tripathi Urea nitrogen [Mass/Vol] 44.0 mg/dL Critically high 7.0-18.0 [facility] Comment on above: Performed By: #### C MP ####[facility] Ftmkoygfhq5[address] [place], [place] [address]Dr. Airam Tripathi Urea nitrogen/Creatinine [Mass ratio] 34.4 mg/mg Normal [facility] Comment on above: Performed By: #### C MP ####[facility] Zyhgqxhiar6869[address] [place], [place] [address]Dr. Airam Tripathi OSMOLALITYon 02-10-2022 Osmolality [Osmolality] 288 mosm/kg Normal 275-295 [facility] Comment on above: Performed By: #### O SMO ####[facility] Atjitzkttl[address] [place], [place] [address]Dr. Airam Tripathi CBC AUTO DIFFon 02-08-2022 BASO # 0.0 103/ul Normal 0.0-0.1 [facility] Comment on above: Performed By: #### C BC ####[facility] Zmiwjuyplh5233 [place] [address]Dr. Airam Deuce Basophils/100 WBC (Bld) 0.3 % Normal 0.2-2.0 [facility] Comment on above: Performed By: #### C BC ####[facility] Mbypllqhjs5630 [place] [address]Dr. Airam Tripathi EO # 0.2 103/ul Normal 0.0-0.7 [facility] Comment on above: Performed By: #### C BC ####[facility] Muhzspdbbs5347[address] [place], [place] [address]Dr. Airam Tripathi Eosinophils/100 WBC (Bld) 2.1 % Normal 0.9-7.0 [facility] Comment on above: Performed By: #### C BC ####[facility] Zvtuackbfe9354 [place] [address]Dr. Airam Tripathi Erythrocyte distribution width (RBC) [Ratio] 13.4 % Normal 11.0-15.0 [facility] Comment on above: Performed By: #### C BC ####[facility] Akuzjzsarg514[address] [place], [place] [address]Dr. Ariam Tripathi Hematocrit (Bld) [Volume fraction] 35.1 % Critically low 36.0-48.0 [facility] Comment on above: Performed By: #### C BC ####[facility] Aqovtshiug049[address] [place], [place] [address]Dr. Airam Tripathi Hemoglobin (Bld) [Mass/Vol] 10.9 g/dL Critically low 12.0-16.0 [facility] Comment on above: Performed By: #### C BC ####[facility] Ofuxaxaiak5435[address] [place], [place] [address]Dr. Airam Tripathi IG # 0.03 10e3/ul Normal 0.00-0.03 [facility] Comment on above: Performed By: #### C BC ####[facility] Qyzydagwto9397[address] [place], [place] [address]Dr. Airam Tripathi IG % 0.3 % Normal 0.0-0.5 [facility] Comment on above: Performed By: #### C BC ####[facility] Wiukydoyxq9568[address] [place], [place] [address]Dr. Airam Tripathi LYMPH # 1.3 103/ul Normal 1.2-3.8 [facility] Comment on above: Performed By: #### C BC ####[facility] Ixuzeqasgt2288[address] [place], [place] [address]Dr. Airam Tripathi Lymphocytes/100 WBC (Bld) 13.1 % Critically low 20.5-60.0 [facility] Comment on above: Performed By: #### C BC ####[facility] Tvytysyjci694[address] [place], [place] [address]Dr. Airam Tripathi MANUAL DIFF REQ NO Normal [facility] Comment on above: Performed By: #### C BC ####[facility] Dtvdzkiluj5421 [place] [phone]. Airam Deuce MCH (RBC) [Entitic mass] 30.4 pg Normal 26.7-34.0 [facility] Comment on above: Performed By: #### C BC ####[facility] Ujfsoxewlz3960 [place] [phone]. Airam Deuce MCHC (RBC) [Mass/Vol] 31.1 g/dL Normal 29.9-35.2 [facility] Comment on above: Performed By: #### C BC ####[facility] Ubpvdgxapd0867 [place] [phone]. Airam Deuce MCV (RBC) [Entitic vol] 98.0 fL Normal 81.0-99.0 [facility] Comment on above: Performed By: #### C BC ####[facility] Pybcawvftl28[address] [place], [place] [address]Dr. Airam Tripathi MONO # 0.5 103/ul Normal 0.3-0.8 [facility] Comment on above: Performed By: #### C BC ####[facility] Dqiytkawmo6994 [place] [address]Dr. Airam Tripathi Monocytes/100 WBC (Bld) 4.7 % Normal 1.7-12.0 [facility] Comment on above: Performed By: #### C BC ####[facility] Dmkaoohetl9[address] [place], [place] [address]Dr. Airam Tripathi NEUT # 7.7 103/ul Critically high 1.4-6.5 [facility] Comment on above: Performed By: #### C BC ####[facility] Kdzyobzruk[address] [place], [place] [address]Dr. Airam Tripathi Neutrophils/100 WBC (Bld) 79.5 % Critically high 43.0-75.0 [facility] Comment on above: Performed By: #### C BC ####[facility] Nrhamsuerm9[address] [place], [place] [address]Dr. Airam Tripathi Platelet mean volume (Bld) [Entitic vol] 9.6 fL Normal 9.5-13.5 [facility] Comment on above: Performed By: #### C BC ####[facility] Wyqmhhoqkr8465 [place] [address]Dr. Airam Tripathi PLT 268 103/ul Normal 150-450 [facility] Comment on above: Performed By: #### C BC ####[facility] Grtryjcxid4315 [place] [phone]. Airam Tripathi RBC 3.58 106/ul Critically low 4.20-5.40 [facility] Comment on above: Performed By: #### C BC ####[facility] Qbjpaooexb4340 [place] [address]Dr. Airam Deuce WBC 9.7 103/ul Normal 4.0-11.0 [facility] Comment on above: Performed By: #### C BC ####[facility] Spwdcxqwef5266 [place] [address]Dr. Airam Tripathi PROF 14(COMP METB)on 022 Albumin [Mass/Vol] 3.6 g/dL Normal 3.4-5.0 [facility] Comment on above: Performed By: #### C MP ####[facility] Vipmtaumms[address] [place], [place] [address]Dr. Airam Deuce Albumin/Globulin [Mass ratio] 1.1 {ratio} Normal [facility] Comment on above: Performed By: #### C MP ####[facility] Mlrbqgdwuv6007 [place] [address]Dr. Airam Tripathi ALP [Catalytic activity/Vol] 131 U/L Critically high 46-116 [facility] Comment on above: Performed By: #### C MP ####[facility] Wbzdrhatlz1705 [place] [address]Dr. Airam Tripathi ALT [Catalytic activity/Vol] 22 U/L Normal 14-59 [facility] Comment on above: Performed By: #### C MP ####[facility] Hovwqzpbrf3477 [place] [address]Dr. Airam Tripathi Anion gap [Moles/Vol] 13.3 mmol/L Normal [facility] Comment on above: Performed By: #### C MP ####[facility] Ubzjbzwqsb7990 [place] [phone]. Airam Tripathi AST [Catalytic activity/Vol] 23 U/L Normal 15-37 [facility] Comment on above: Performed By: #### C MP ####[facility] Fltodjnegp9894 [place], [place] [address]Jl. Airam Tripathi Bilirubin [Mass/Vol] 0.3 mg/dL Normal 0.2-1.0 [facility] Comment on above: Performed By: #### C MP ####[facility] Nuqqngnjhe4327 [place] [phone]. Airam Tripathi Calcium [Mass/Vol] 8.7 mg/dL Normal 8.5-10.1 [facility] Comment on above: Performed By: #### C MP ####[facility] Pwzrnajmuv6514 [place] [phone]. Airam Tripathi Chloride [Moles/Vol] 104 mmol/L Normal 98-107 [facility] Comment on above: Performed By: #### C MP ####[facility] Epzjogadny9675 [place] [phone]. Airam Tripathi CO2 [Moles/Vol] 22.0 mmol/L Normal 21.0-32.0 [facility] Comment on above: Performed By: #### C MP ####[facility] Ogwssrpjza1405 [place] [phone]. Airam Tripathi Creatinine [Mass/Vol] 1.20 mg/dL Critically high 0.55-1.02 [facility] Comment on above: Performed By: #### C MP ####[facility] Yhvykjnglu9798 [place] [phone]. Airam Tripathi EGFR-AF QATARI 56 mL/min/1.73m2 Critically low >=60 [facility] Comment on above: Performed By: #### C MP ####[facility] Dleuncpjqo6406 [place] [phone]. Airam Tripathi EGFR-NON AF QATARI 46 mL/min/1.73m2 Critically low >=60 [facility] Comment on above: Performed By: #### C MP ####[facility] Beiatfxqzq0945 [place] [phone]. Airam Tripathi Globulin (S) [Mass/Vol] 3.2 g/dL Normal [facility] Comment on above: Performed By: #### C MP ####[facility] Svmwzklqzx2689 [place] [phone]. Airam Tripathi Glucose [Mass/Vol] 98 mg/dL Normal 74-106 [facility] Comment on above: Performed By: #### C MP ####[facility] Oxxppihmaj7020 [place] [address]Dr. Airam Tripathi Potassium [Moles/Vol] 4.3 mmol/L Normal 3.5-5.1 [facility] Comment on above: Performed By: #### C MP ####[facility] Wseakovmwq739[address] [place], [place] [address]Dr. Airam Tripathi Protein [Mass/Vol] 6.8 g/dL Normal 6.4-8.2 [facility] Comment on above: Performed By: #### C MP ####[facility] Fkhnmnmpso4751 [place] [address]Dr. Airam Tripathi Sodium [Moles/Vol] 135 mmol/L Critically low 136-145 Th [facility] Comment on above: Performed By: #### C MP ####[facility] Ozjsosorbn1389[address] [place], [place] [address]Dr. Airam Tripathi Urea nitrogen [Mass/Vol] 33.0 mg/dL Critically high 7.0-18.0 [facility] Comment on above: Performed By: #### C MP ####[facility] Qdbvfkaolt9410 [place] [address]Dr. Airam Tripatih Urea nitrogen/Creatinine [Mass ratio] 27.5 mg/mg Normal [facility] Comment on above: Performed By: #### C MP ####[facility] Vslzlcdqvr[address] [place], [place] [address]Dr. Airam Tripathi OSMOLALITYon 02-07-2022 Osmolality [Osmolality] 299 mosm/kg Critically high 275-295 [facility] Comment on above: Performed By: #### O SMO ####[facility] Dszkspormh8117 [place] [phone]. Airam Tripathi CBC AUTO DIFFon 02-03-2022 BASO # 0.0 103/ul Normal 0.0-0.1 [facility] Comment on above: Performed By: #### C BC ####[facility] Ocklghjlmm3849 [place] [phone]. Selenaneil Tripathi Basophils/100 WBC (Bld) 0.4 % Normal 0.2-2.0 [facility] Comment on above: Performed By: #### C BC ####[facility] Xpkjuukexd687[address] [place], [place] [address]Dr. Selenaneil Tripathi EO # 0.3 103/ul Normal 0.0-0.7 [facility] Comment on above: Performed By: #### C BC ####[facility] Hpbgsdlxqf8464[address] [place], [place] [address]Dr. Airam Tripathi Eosinophils/100 WBC (Bld) 3.6 % Normal 0.9-7.0 [facility] Comment on above: Performed By: #### C BC ####[facility] Iuquoklzqo255[address] [place], [place] [address]Dr. Airam Tripathi Erythrocyte distribution width (RBC) [Ratio] 13.2 % Normal 11.0-15.0 [facility] Comment on above: Performed By: #### C BC ####[facility] Mlhlzustew9[address] [place], [place] [address]Dr. Airam Tripathi Hematocrit (Bld) [Volume fraction] 32.0 % Critically low 36.0-48.0 [facility] Comment on above: Performed By: #### C BC ####[facility] Pszelkqgoo9[address] [place], [place] [address]Dr. Selenaneil Tripathi Hemoglobin (Bld) [Mass/Vol] 9.8 g/dL Critically low 12.0-16.0 [facility] Comment on above: Performed By: #### C BC ####[facility] Qrcrxdkacv[address] [place], [place] [address]Dr. Airam Tripathi IG # 0.03 10e3/ul Normal 0.00-0.03 [facility] Comment on above: Performed By: #### C BC ####[facility] Xwyoxogaop0827 [place] [address]Dr. Selenaneil Tripathi IG % 0.4 % Normal 0.0-0.5 [facility] Comment on above: Performed By: #### C BC ####[facility] Xthcpunlbq8[address] [place], [place] [address]Dr. Selenaneil Tripathi LYMPH # 1.7 103/ul Normal 1.2-3.8 [facility] Comment on above: Performed By: #### C BC ####[facility] Tvseczxhec5[address] [place], [place] [address]Dr. Selenaneil Tripathi Lymphocytes/100 WBC (Bld) 24.8 % Normal 20.5-60.0 [facility] Comment on above: Performed By: #### C BC ####[facility] Gxepwbqkcj[address] [place], [place] [address]Dr. Airam Tripathi MANUAL DIFF REQ NO Normal [facility] Comment on above: Performed By: #### C BC ####[facility] [id number] [place], [place] [address]Dr. Selenaneil Tripathi MCH (RBC) [Entitic mass] 29.6 pg Normal 26.7-34.0 [facility] Comment on above: Performed By: #### C BC ####[facility] Sldhjzejbb[address] [place], [place] [address]Dr. Selenaneil Tripathi MCHC (RBC) [Mass/Vol] 30.6 g/dL Normal 29.9-35.2 [facility] Comment on above: Performed By: #### C BC ####[facility] Ocmbgmmqxy2[address] [place], [place] [address]Dr. Selenaneil Tripathi MCV (RBC) [Entitic vol] 96.7 fL Normal 81.0-99.0 [facility] Comment on above: Performed By: #### C BC ####[facility] Wrsdnzpfcz[address] [place], [place] [address]Dr. Airam Tripathi MONO # 0.4 103/ul Normal 0.3-0.8 [facility] Comment on above: Performed By: #### C BC ####[facility] Paewlawjot[address] [place] [phone]. Airam Tripathi Monocytes/100 WBC (Bld) 6.3 % Normal 1.7-12.0 [facility] Comment on above: Performed By: #### C BC ####[facility] Lfvnjztpsl5951 [place] [phone]. Airam Tripathi NEUT # 4.5 103/ul Normal 1.4-6.5 [facility] Comment on above: Performed By: #### C BC ####[facility] Vrdafxfbdm[address] [place] [phone]. Airam Tripathi Neutrophils/100 WBC (Bld) 64.5 % Normal 43.0-75.0 [facility] Comment on above: Performed By: #### C BC ####[facility] Mxqzcpabay1150 [place] [phone]. Airam Tripathi Platelet mean volume (Bld) [Entitic vol] 9.3 fL Critically low 9.5-13.5 [facility] Comment on above: Performed By: #### C BC ####[facility] Vkmcihloqc22[address] [place] [address]Dr. Airam Tripathi PLT 243 103/ul Normal 150-450 [facility] Comment on above: Performed By: #### C BC ####[facility] Wsmcfpszck0859 [place] [phone]. Airam Tripathi RBC 3.31 106/ul Critically low 4.20-5.40 [facility] Comment on above: Performed By: #### C BC ####[facility] Igvzvhpjfv6198 [place] [phone]. Airam Tripathi WBC 7.0 103/ul Normal 4.0-11.0 [facility] Comment on above: Performed By: #### C BC ####[facility] Vjgourzkxj6284 [place] [phone] Selenaneil Tripathi PROF 14(COMP METB)on 022 Albumin [Mass/Vol] 3.3 g/dL Critically low 3.4-5.0 [facility] Comment on above: Performed By: #### C MP ####[facility] Fxpgpfuwri4683 [place] [address]Dr. Airam Deuce Albumin/Globulin [Mass ratio] 1.1 {ratio} Normal [facility] Comment on above: Performed By: #### C MP ####[facility] Ijqifzxmcb2750 [place] [address]Dr. Airam Deuce ALP [Catalytic activity/Vol] 126 U/L Critically high 46-116 [facility] Comment on above: Performed By: #### C MP ####[facility] Frpdfencvi930[address] [place], [place] [address]Dr. Airam Deuce ALT [Catalytic activity/Vol] 21 U/L Normal 14-59 [facility] Comment on above: Performed By: #### C MP ####[facility] Dmwucpemxd639847 [address] [place], [place] [address]Dr. Airam Tripathi Anion gap [Moles/Vol] 11.8 mmol/L Normal [facility] Comment on above: Performed By: #### C MP ####[facility] Vmwubgkxnp744[address] [place], [place] [address]Dr. Airam Deuce AST [Catalytic activity/Vol] 22 U/L Normal 15-37 [facility] Comment on above: Performed By: #### C MP ####[facility] Syzpbrpeib135[address] [place], [place] [address]Dr. Airam Tripathi Bilirubin [Mass/Vol] 0.3 mg/dL Normal 0.2-1.0 [facility] Comment on above: Performed By: #### C MP ####[facility] Ukhubjqwyj533347 [address] [place], [place] [address]Dr. Airam Tripathi Calcium [Mass/Vol] 8.7 mg/dL Normal 8.5-10.1 [facility] Comment on above: Performed By: #### C MP ####[facility] Yeminttxib5833[address] [place], [place] [address]Dr. Airam Tripathi Chloride [Moles/Vol] 102 mmol/L Normal 98-107 [facility] Comment on above: Performed By: #### C MP ####[facility] Kjhssilejb5834 [place] [phone]. Airam Tripathi CO2 [Moles/Vol] 25.5 mmol/L Normal 21.0-32.0 [facility] Comment on above: Performed By: #### C MP ####[facility] Gtdbynrwmc8071 [place] [phone]. Airam Tripathi Creatinine [Mass/Vol] 1.43 mg/dL Critically high 0.55-1.02 [facility] Comment on above: Performed By: #### C MP ####[facility] Wljnwoegxe1791 [place] [phone]. Airam Tripathi EGFR-AF QATARI 46 mL/min/1.73m2 Critically low >=60 [facility] Comment on above: Performed By: #### C MP ####[facility] Fbltsmmvjm8940[address] [place], [place] [address]Dr. Airam Tripathi EGFR-NON AF QATARI 38 mL/min/1.73m2 Critically low >=60 [facility] Comment on above: Performed By: #### C MP ####[facility] Ghsprimciq714847 [address] [place], [place] [address]Dr. Airam Tripathi Globulin (S) [Mass/Vol] 2.9 g/dL Normal [facility] Comment on above: Performed By: #### C MP ####[facility] Uhzfglfahs8[address] [place], [place] [address]Dr. Airam Tripathi Glucose [Mass/Vol] 83 mg/dL Normal 74-106 [facility] Comment on above: Performed By: #### C MP ####[facility] Plpgtsfntg378047 [address] [place], [place] [address]Dr. Airam Tripathi Potassium [Moles/Vol] 4.3 mmol/L Normal 3.5-5.1 [facility] Comment on above: Performed By: #### C MP ####[facility] Nwwoatphza9348[address] [place], [place] [address]Dr. Airam Tripathi Protein [Mass/Vol] 6.2 g/dL Critically low 6.4-8.2 Th [facility] Comment on above: Performed By: #### C MP ####[facility] Kkxvlbfabu6053 [place] [address]Dr. Airam Tripathi Sodium [Moles/Vol] 135 mmol/L Critically low 136-145 Th [facility] Comment on above: Performed By: #### C MP ####[facility] Xwtzwjbefr417047 [address] [place], [place] [address]Dr. Airam Deuce Urea nitrogen [Mass/Vol] 39.0 mg/dL Critically high 7.0-18.0 [facility] Comment on above: Performed By: #### C MP ####[facility] Djwefvlird638947 [address] [place], [place] [address]Dr. Airam Tripathi Urea nitrogen/Creatinine [Mass ratio] 27.3 mg/mg Normal [facility] Comment on above: Performed By: #### C MP ####[facility] Seyzpaaglf373247 [address] [place], [place] [address]Dr. Airam Deuce OSMOLALITYon 02-02-2022 Osmolality [Osmolality] 292 mosm/kg Normal 275-295 [facility] Comment on above: Performed By: #### O SMO ####[facility] Xmmzodfpcg1827[address] [place], [place] [address]Dr. Airam Deuce CBC AUTO DIFFon 01-27-2022 BASO # 0.0 103/ul Normal 0.0-0.1 [facility] Comment on above: Performed By: #### C BC ####[facility] Sqlavnroux798047 [address] [place], [place] [address]Dr. Airam Deuce Basophils/100 WBC (Bld) 0.4 % Normal 0.2-2.0 [facility] Comment on above: Performed By: #### C BC ####[facility] Evwvmtxtyw820147 [address] [place], [place] [address]Dr. Airam Deuce EO # 0.2 103/ul Normal 0.0-0.7 [facility] Comment on above: Performed By: #### C BC ####[facility] Cdvfhwkxtz060947 [address] [place], [place] [address]Dr. Airam Tripathi Eosinophils/100 WBC (Bld) 3.4 % Normal 0.9-7.0 [facility] Comment on above: Performed By: #### C BC ####[facility] Vzlaazvlgc36[address] [place] [address]Dr. Airam Tripathi Erythrocyte distribution width (RBC) [Ratio] 13.1 % Normal 11.0-15.0 [facility] Comment on above: Performed By: #### C BC ####[facility] Ubilhnvlfe900647 [address] [place], [place] [address]Dr. Airam Tripathi Hematocrit (Bld) [Volume fraction] 31.6 % Critically low 36.0-48.0 [facility] Comment on above: Performed By: #### C BC ####[facility] Fiudnzwpnf526847 [address] [place], [place] [address]Dr. Airam Tripathi Hemoglobin (Bld) [Mass/Vol] 9.9 g/dL Critically low 12.0-16.0 [facility] Comment on above: Performed By: #### C BC ####[facility] Mhdiupazpm3027[address] [place], [place] [address]Dr. Airam Tripathi IG # 0.02 10e3/ul Normal 0.00-0.03 [facility] Comment on above: Performed By: #### C BC ####[facility] Kycgauhkzj653347 [address] [place], [place] [address]Dr. Airam Tripathi IG % 0.4 % Normal 0.0-0.5 [facility] Comment on above: Performed By: #### C BC ####[facility] Pdiduxqckx993147 [address] [place], [place] [address]Dr. Airam Tripathi LYMPH # 1.0 103/ul Critically low 1.2-3.8 [facility] Comment on above: Performed By: #### C BC ####[facility] Mnmqotkaul9369[address] [place], [place] [address]DrKianna Airam Tripathi Lymphocytes/100 WBC (Bld) 17.4 % Critically low 20.5-60.0 [facility] Comment on above: Performed By: #### C BC ####[facility] Hvbibxrioh096[address] [place], [place] [address]DrKianna Airam Tripathi MANUAL DIFF REQ NO Normal [facility] Comment on above: Performed By: #### C BC ####[facility] Vfgykrfgbw9831 [place] [phone]. Airam Tripathi MCH (RBC) [Entitic mass] 30.1 pg Normal 26.7-34.0 [facility] Comment on above: Performed By: #### C BC ####[facility] Efsxxwyufv4813 [place] [address]Dr. Airam Tripathi MCHC (RBC) [Mass/Vol] 31.3 g/dL Normal 29.9-35.2 [facility] Comment on above: Performed By: #### C BC ####[facility] Drtvvcgehu3115[address] [place], [place] [address]Dr. Selenaneil Tripathi MCV (RBC) [Entitic vol] 96.0 fL Normal 81.0-99.0 [facility] Comment on above: Performed By: #### C BC ####[facility] Hnjeptlsnv5055[address] [place], [place] [address]Dr. Airam Tripathi MONO # 0.5 103/ul Normal 0.3-0.8 [facility] Comment on above: Performed By: #### C BC ####[facility] Qkjglerdut3457[address] [place], [place] [address]Dr. Selenaneil Tripathi Monocytes/100 WBC (Bld) 8.6 % Normal 1.7-12.0 [facility] Comment on above: Performed By: #### C BC ####[facility] Qneofgogxf128647 [address] [place], [place] [address]Dr. Selenaneil Tripathi NEUT # 3.9 103/ul Normal 1.4-6.5 [facility] Comment on above: Performed By: #### C BC ####[facility] Iirdaerkym897[address] [place], [place] [address]DrKianna Tripathi Neutrophils/100 WBC (Bld) 69.8 % Normal 43.0-75.0 [facility] Comment on above: Performed By: #### C BC ####[facility] Rrewowszpf3875[address] [place], [place] [address]Dr. Airam Tripathi Platelet mean volume (Bld) [Entitic vol] 9.6 fL Normal 9.5-13.5 [facility] Comment on above: Performed By: #### C BC ####[facility] Fmfbaqephj6485 [place] [address]Dr. Selenaneil Deuce PLT 228 103/ul Normal 150-450 [facility] Comment on above: Performed By: #### C BC ####[facility] Cotsjwqtto7735 [place] [phone]. Selenaneil Tripathi RBC 3.29 106/ul Critically low 4.20-5.40 [facility] Comment on above: Performed By: #### C BC ####[facility] Rtmdyhrbug5439 [place] [phone]. Selenaneil Tripathi WBC 5.6 103/ul Normal 4.0-11.0 [facility] Comment on above: Performed By: #### C BC ####[facility] Dzphzdignn0856 [place] [address]Dr. Airam Tripathi PROF 14(COMP METB)on 022 Albumin [Mass/Vol] 3.1 g/dL Critically low 3.4-5.0 [facility] Comment on above: Performed By: #### C MP ####[facility] Ostbpwpqtr9187 [place] [address]Dr. Airam Tripathi Albumin/Globulin [Mass ratio] 1.0 {ratio} Normal [facility] Comment on above: Performed By: #### C MP ####[facility] Fvedulqhvk7395 [place] [address]Dr. Airam Tripathi ALP [Catalytic activity/Vol] 131 U/L Critically high 46-116 [facility] Comment on above: Performed By: #### C MP ####[facility] Ztrfiuehjq0546 [place] [address]Dr. Airam Tripathi ALT [Catalytic activity/Vol] 19 U/L Normal 14-59 [facility] Comment on above: Performed By: #### C MP ####[facility] Mgwganwdzz9406 [place] [address]DrKianna Tripathi Anion gap [Moles/Vol] 12.9 mmol/L Normal [facility] Comment on above: Performed By: #### C MP ####[facility] Odlfcgcbhd8394 [place] [phone]. Airam Tripathi AST [Catalytic activity/Vol] 21 U/L Normal 15-37 [facility] Comment on above: Performed By: #### C MP ####[facility] Zszhxenmrg6492 [place] [phone]. Airam Tripathi Bilirubin [Mass/Vol] 0.2 mg/dL Normal 0.2-1.0 [facility] Comment on above: Performed By: #### C MP ####[facility] Hctfbiqfke8750 [place] [address]Dr. Airam Tripathi Calcium [Mass/Vol] 8.4 mg/dL Critically low 8.5-10.1 Th e [facility] Comment on above: Performed By: #### C MP ####[facility] Udgegzpxsi17[address] [place], [place] [address]Dr. Airam Tripathi Chloride [Moles/Vol] 103 mmol/L Normal 98-107 [facility] Comment on above: Performed By: #### C MP ####[facility] Jcvtggymof16[address] [place], [place] [address]Dr. Airam Tripathi CO2 [Moles/Vol] 23.7 mmol/L Normal 21.0-32.0 [facility] Comment on above: Performed By: #### C MP ####[facility] Wqeixbcuqq605[address] [place], [place] [address]Dr. Airam Tripathi Creatinine [Mass/Vol] 1.37 mg/dL Critically high 0.55-1.02 [facility] Comment on above: Performed By: #### C MP ####[facility] Bcqtepjdkh7590 [place] [phone]. Airam Deuce EGFR-AF QATARI 48 mL/min/1.73m2 Critically low >=60 [facility] Comment on above: Performed By: #### C MP ####[facility] Bkznzelwuk045[address] [place], [place] [address]Dr. Selenaneil Deuce EGFR-NON AF QATARI 39 mL/min/1.73m2 Critically low >=60 [facility] Comment on above: Performed By: #### C MP ####[facility] Wwqumdlcvz2592 [place] [address]Dr. Airam Tripathi Globulin (S) [Mass/Vol] 3.1 g/dL Normal [facility] Comment on above: Performed By: #### C MP ####[facility] Zbkjjkrfvn8397 [place] [phone]. Airam Tripathi Glucose [Mass/Vol] 88 mg/dL Normal 74-106 [facility] Comment on above: Performed By: #### C MP ####[facility] Nydrgolvsh4053 [place] [address]Dr. Airam Deuce Potassium [Moles/Vol] 4.6 mmol/L Normal 3.5-5.1 [facility] Comment on above: Performed By: #### C MP ####[facility] Hekjspcsvv1446 [place] [address]Dr. Airam Deuce Protein [Mass/Vol] 6.2 g/dL Critically low 6.4-8.2 [facility] Comment on above: Performed By: #### C MP ####[facility] Acifaezfaf4210 [place] [address]Dr. Airam Deuce Sodium [Moles/Vol] 135 mmol/L Critically low 136-145 Th [facility] Comment on above: Performed By: #### C MP ####[facility] Hqcbqnflei7737 [place] [address]Dr. Airam Deuce Urea nitrogen [Mass/Vol] 34.0 mg/dL Critically high 7.0-18.0 [facility] Comment on above: Performed By: #### C MP ####[facility] Xajwlxiaat9200 [place] [address]Dr. Airam Deuce Urea nitrogen/Creatinine [Mass ratio] 24.8 mg/mg Normal [facility] Comment on above: Performed By: #### C MP ####[facility] Tndsfmeaxu7625 [place] [address]Dr. Airam Deuce OSMOLALITYon 01-21-2022 Osmolality [Osmolality] 276 mosm/kg Normal 275-295 [facility] Comment on above: Performed By: #### O SMO ####[facility] Yrmjjwvtnl9100 [place] [address]Dr. Selenaneil Deuce MRI CSPINE WO CONon 01-21-20 MRI CSPINE WO CON Normal [facility] CBC AUTO DIFFon 01-19-2022 BASO # 0.0 103/ul Normal 0.0-0.1 [facility] Comment on above: Performed By: #### C BC ####[facility] Bwlmkvleaz4725[address] [place], [place] [address]Dr. Airam Tripathi Basophils/100 WBC (Bld) 0.2 % Normal 0.2-2.0 [facility] Comment on above: Performed By: #### C BC ####[facility] Dataxghhxy919[address] [place], [place] [address]Dr. Airam Tripathi EO # 0.2 103/ul Normal 0.0-0.7 [facility] Comment on above: Performed By: #### C BC ####[facility] Azkhbtbvtd7067[address] [place], [place] [address]Dr. Airam Tripathi Eosinophils/100 WBC (Bld) 2.1 % Normal 0.9-7.0 [facility] Comment on above: Performed By: #### C BC ####[facility] Obqqcarhru147[address] [place], [place] [address]Dr. Airam Tripathi Erythrocyte distribution width (RBC) [Ratio] 12.7 % Normal 11.0-15.0 [facility] Comment on above: Performed By: #### C BC ####[facility] Wlhwbsdlht15[address] [place], [place] [address]Dr. Airam Tripathi Hematocrit (Bld) [Volume fraction] 32.2 % Critically low 36.0-48.0 [facility] Comment on above: Performed By: #### C BC ####[facility] Jcclphryqr3223[address] [place], [place] [address]Dr. Airam Tripathi Hemoglobin (Bld) [Mass/Vol] 10.4 g/dL Critically low 12.0-16.0 [facility] Comment on above: Performed By: #### C BC ####[facility] Skiyrghylp6090 [place] [phone]. Airam Tripathi IG # 0.03 10e3/ul Normal 0.00-0.03 [facility] Comment on above: Performed By: #### C BC ####[facility] Onlnxslycm9497 [place] [address]Dr. Airma Tripathi IG % 0.3 % Normal 0.0-0.5 [facility] Comment on above: Performed By: #### C BC ####[facility] Vdlawobyzl0029 [place] [address]Dr. Airam Deuce LYMPH # 1.4 103/ul Normal 1.2-3.8 [facility] Comment on above: Performed By: #### C BC ####[facility] Okboyixpux4487 [place] [address]Dr. Airam Tripathi Lymphocytes/100 WBC (Bld) 16.0 % Critically low 20.5-60.0 [facility] Comment on above: Performed By: #### C BC ####[facility] Avfzdlradk7522 [place] [address]Dr. Selenaneil Tripathi MANUAL DIFF REQ NO Normal [facility] Comment on above: Performed By: #### C BC ####[facility] Ftbkwdtynn2217 [place] [address]Dr. Airam Tripathi MCH (RBC) [Entitic mass] 30.0 pg Normal 26.7-34.0 [facility] Comment on above: Performed By: #### C BC ####[facility] Llzuapswfq7935 [place] [address]Dr. Airam Tripathi MCHC (RBC) [Mass/Vol] 32.3 g/dL Normal 29.9-35.2 [facility] Comment on above: Performed By: #### C BC ####[facility] Rqajhitjmp6083 [place] [address]Dr. Airam Tripathi MCV (RBC) [Entitic vol] 92.8 fL Normal 81.0-99.0 [facility] Comment on above: Performed By: #### C BC ####[facility] Owrsyvvfdo3647 [place] [phone]. Airam Tripathi MONO # 0.4 103/ul Normal 0.3-0.8 [facility] Comment on above: Performed By: #### C BC ####[facility] Dbejyttxoy4921 [place] [address]Dr. Airam Tripathi Monocytes/100 WBC (Bld) 4.9 % Normal 1.7-12.0 [facility] Comment on above: Performed By: #### C BC ####[facility] Uvbvawpysh50[address] [place], [place] [address]Dr. Selenaneil Deuce NEUT # 6.6 103/ul Critically high 1.4-6.5 [facility] Comment on above: Performed By: #### C BC ####[facility] Hylzqekldg4534[address] [place], [place] [address]Dr. Airam Tripathi Neutrophils/100 WBC (Bld) 76.5 % Critically high 43.0-75.0 [facility] Comment on above: Performed By: #### C BC ####[facility] Hynpayojoc5177[address] [place], [place] [address]Dr. Airam Tripathi Platelet mean volume (Bld) [Entitic vol] 9.8 fL Normal 9.5-13.5 [facility] Comment on above: Performed By: #### C BC ####[facility] Wwdlvzoqtx5437[address] [place], [place] [address]Dr. Airam Tripathi PLT 262 103/ul Normal 150-450 [facility] Comment on above: Performed By: #### C BC ####[facility] Wqyrteubnc339047 [address] [place], [place] [address]Dr. Airam Tripathi RBC 3.47 106/ul Critically low 4.20-5.40 [facility] Comment on above: Performed By: #### C BC ####[facility] Hernrphaxk[address] [place], [place] [address]Dr. Airam Tripathi WBC 8.7 103/ul Normal 4.0-11.0 [facility] Comment on above: Performed By: #### C BC ####[facility] Cmhrnjmfhi7[address] [place], [place] [address]Dr. Airam Tripathi PROF 14(COMP METB)on 022 Albumin [Mass/Vol] 3.3 g/dL Critically low 3.4-5.0 [facility] Comment on above: Performed By: #### C MP ####[facility] Tobzpjoqet2368 [place] [address]Dr. Airam Tripathi Albumin/Globulin [Mass ratio] 1.1 {ratio} Normal [facility] Comment on above: Performed By: #### C MP ####[facility] Dlwzvmzgnc3663 [place] [address]Dr. Airam Tripathi ALP [Catalytic activity/Vol] 114 U/L Normal 46-116 [facility] Comment on above: Performed By: #### C MP ####[facility] Myvdpihasb8745[address] [place], [place] [address]Dr. Airam Tripathi ALT [Catalytic activity/Vol] 20 U/L Normal 14-59 [facility] Comment on above: Performed By: #### C MP ####[facility] Zimlimeglx7000[address] [place], [place] [address]Dr. Airam Tripathi Anion gap [Moles/Vol] 14.7 mmol/L Normal [facility] Comment on above: Performed By: #### C MP ####[facility] Budeueuoju915[address] [place], [place] [address]Dr. Airam Tripathi AST [Catalytic activity/Vol] 22 U/L Normal 15-37 [facility] Comment on above: Performed By: #### C MP ####[facility] Czyzlrximu9534[address] [place], [place] [address]DrKianna Tripathi Bilirubin [Mass/Vol] 0.3 mg/dL Normal 0.2-1.0 [facility] Comment on above: Performed By: #### C MP ####[facility] Qlqerhyrbx701[address] [place], [place] [address]Dr. Airam Tripathi Calcium [Mass/Vol] 8.8 mg/dL Normal 8.5-10.1 [facility] Comment on above: Performed By: #### C MP ####[facility] Vxnrwbwhfw03[address] [place], [place] [address]DrKianna Waltersneil Tripathi Chloride [Moles/Vol] 97 mmol/L Critically low 98-107 [facility] Comment on above: Performed By: #### C MP ####[facility] Hzszppfeij9677 [place] [address]Dr. Airam Tripathi CO2 [Moles/Vol] 24.5 mmol/L Normal 21.0-32.0 [facility] Comment on above: Performed By: #### C MP ####[facility] Ghibszuxsg8[address] [place], [place] [address]Dr. Airam Deuce Creatinine [Mass/Vol] 1.28 mg/dL Critically high 0.55-1.02 [facility] Comment on above: Performed By: #### C MP ####[facility] Uptdlqkboh30[address] [place], [place] [address]Dr. Selenaneil Deuce EGFR-AF QATARI 52 mL/min/1.73m2 Critically low >=60 [facility] Comment on above: Performed By: #### C MP ####[facility] Mzzafiqzdp308[address] [place], [place] [address]Dr. Airam Deuce EGFR-NON AF QATARI 43 mL/min/1.73m2 Critically low >=60 The [facility] Comment on above: Performed By: #### C MP ####[facility] Kdelrkrvks165[address] [place], [place] [address]Dr. Selenaneil Tripathi Globulin (S) [Mass/Vol] 3.1 g/dL Normal The [facility] Comment on above: Performed By: #### C MP ####[facility] Jgqczlmctk5227[address] [place], [place] [address]Dr. Airam Tripathi Glucose [Mass/Vol] 87 mg/dL Normal 74-106 The [facility] Comment on above: Performed By: #### C MP ####[facility] Wynjvvgvle946[address] [place], [place] [address]Dr. Airam Tripathi Potassium [Moles/Vol] 4.2 mmol/L Normal 3.5-5.1 The [facility] Comment on above: Performed By: #### C MP ####[facility] Ojmadtpral6[address] [place], [place] [address]Dr. Airam Tripathi Protein [Mass/Vol] 6.4 g/dL Normal 6.4-8.2 [facility] Comment on above: Performed By: #### C MP ####[facility] Blbbknqjgc5505[address] [place], [place] [address]Dr. Airam Tripathi Sodium [Moles/Vol] 132 mmol/L Critically low 136-145 Th [facility] Comment on above: Performed By: #### C MP ####[facility] Bkpqlpkexe084247 [address] [place], [place] [address]Dr. Airam Tripathi Urea nitrogen [Mass/Vol] 36.0 mg/dL Critically high 7.0-18.0 [facility] Comment on above: Performed By: #### C MP ####[facility] Pjlwsdwlsr6657[address] [place], [place] [address]Dr. Airam Tripathi Urea nitrogen/Creatinine [Mass ratio] 28.1 mg/mg Normal [facility] Comment on above: Performed By: #### C MP ####[facility] Mvrcyszrlu777247 [address] [place], [place] [address]Dr. Airam Tripathi XR DEXA BONE DENSITYon 01-19 XR DEXA BONE DENSITY Normal [facility] OSMOLALITYon 01-13-2022 Osmolality [Osmolality] 277 mosm/kg Normal 275-295 [facility] Comment on above: Performed By: #### O SMO ####[facility] Yledroiltg458347 [address] [place], [place] [address]Dr. Airam Tripathi CBC AUTO DIFFon 01-11-2022 BASO # 0.0 103/ul Normal 0.0-0.1 [facility] Comment on above: Performed By: #### C BC ####[facility] Utzfmdaazh3030[address] [place], [place] [address]Dr. Airam Tripathi Basophils/100 WBC (Bld) 0.5 % Normal 0.2-2.0 The [facility] Comment on above: Performed By: #### C BC ####[facility] Fetpilwnnv025347 [address] [place], [place] [address]Dr. Airam Tripathi EO # 0.2 103/ul Normal 0.0-0.7 [facility] Comment on above: Performed By: #### C BC ####[facility] Vqweavdoky[address] [place] [address]Dr. Airam Tripathi Eosinophils/100 WBC (Bld) 3.1 % Normal 0.9-7.0 The [facility] Comment on above: Performed By: #### C BC ####[facility] Fnvxoobqvc4114 [place] [address]Dr. Airam Tripathi Erythrocyte distribution width (RBC) [Ratio] 12.5 % Normal 11.0-15.0 The [facility] Comment on above: Performed By: #### C BC ####[facility] Pqqnexpwxc626547 [address] [place], [place] [address]Dr. Airam Tripathi Hematocrit (Bld) [Volume fraction] 34.4 % Critically low 36.0-48.0 The [facility] Comment on above: Performed By: #### C BC ####[facility] Fhypbmftgy768847 [address] [place], [place] [address]Dr. Airam Tripathi Hemoglobin (Bld) [Mass/Vol] 11.0 g/dL Critically low 12.0-16.0 The [facility] Comment on above: Performed By: #### C BC ####[facility] Argplfwmdm507947 [address] [place], [place] [address]Dr. Airam Tripathi IG # 0.03 10e3/ul Normal 0.00-0.03 [facility] Comment on above: Performed By: #### C BC ####[facility] Fajietewod405847 [address] [place], [place] [address]Dr. Airam Tripathi IG % 0.5 % Normal 0.0-0.5 The [facility] Comment on above: Performed By: #### C BC ####[facility] Infqajpqbz775947 [address] [place], [place] [address]Dr. Airam Tripathi LYMPH # 1.6 103/ul Normal 1.2-3.8 The [facility] Comment on above: Performed By: #### C BC ####[facility] Wdbfuejofl744747 [address] [place], [place] [address]Dr. Airam Tripathi Lymphocytes/100 WBC (Bld) 28.0 % Normal 20.5-60.0 The [facility] Comment on above: Performed By: #### C BC ####[facility] Wjfsziqihx3889 [place] [address]Dr. Airam Tripathi MANUAL DIFF REQ NO Normal The [facility] Comment on above: Performed By: #### C BC ####[facility] Proazrjxfq3318 [place] [id number]. Airam Tripathi MCH (RBC) [Entitic mass] 30.1 pg Normal 26.7-34.0 [facility] Comment on above: Performed By: #### C BC ####[facility] Plavjoqzez7060 [place] [address]Dr. Airam Tripathi MCHC (RBC) [Mass/Vol] 32.0 g/dL Normal 29.9-35.2 The [facility] Comment on above: Performed By: #### C BC ####[facility] Kdxoewmbqc414[address] [place], [place] [address]Dr. Airam Tripathi MCV (RBC) [Entitic vol] 94.0 fL Normal 81.0-99.0 [facility] Comment on above: Performed By: #### C BC ####[facility] Etcrysocul2435[address] [place], [place] [address]Dr. Airam Tripathi MONO # 0.4 103/ul Normal 0.3-0.8 [facility] Comment on above: Performed By: #### C BC ####[facility] Eqvodrhrnz479347 [address] [place], [place] [address]Dr. Airam Tripathi Monocytes/100 WBC (Bld) 7.5 % Normal 1.7-12.0 The [facility] Comment on above: Performed By: #### C BC ####[facility] Blfwfkgbdd564147 [address] [place], [place] [address]DrKianna Tripathi NEUT # 3.5 103/ul Normal 1.4-6.5 The [facility] Comment on above: Performed By: #### C BC ####[facility] Qwcpyekvse578747 [address] [place], [place] [address]Dr. Airam Tripathi Neutrophils/100 WBC (Bld) 60.4 % Normal 43.0-75.0 The [facility] Comment on above: Performed By: #### C BC ####[facility] Qmfjvczldd2005 [place] [address]Dr. Airam Tripathi Platelet mean volume (Bld) [Entitic vol] 10.0 fL Normal 9.5-13.5 [facility] Comment on above: Performed By: #### C BC ####[facility] Taemxeivgl3269 [place] [address]Dr. Airam Tripathi PLT 300 103/ul Normal 150-450 The [facility] Comment on above: Performed By: #### C BC ####[facility] Betuoqemwp0808 [place] [address]Dr. Airam Tripathi RBC 3.66 106/ul Critically low 4.20-5.40 [facility] Comment on above: Performed By: #### C BC ####[facility] Jzjzpjzwlw6447 [place] [address]Dr. Airam Tripathi WBC 5.7 103/ul Normal 4.0-11.0 [facility] Comment on above: Performed By: #### C BC ####[facility] Ofgwvcuiiz7731 [place] [address]DrKianna Tripathi PROF 14(COMP METB)on 022 Albumin [Mass/Vol] 3.3 g/dL Critically low 3.4-5.0 Th [facility] Comment on above: Performed By: #### C MP ####[facility] Lwgpxtghmc8275 [place] [address]DrKianna Tripathi Albumin/Globulin [Mass ratio] 1.0 {ratio} Normal [facility] Comment on above: Performed By: #### C MP ####[facility] Ktnaeztsnl6882 [place] [address]DrKianna Tripathi ALP [Catalytic activity/Vol] 138 U/L Critically high 46-116 [facility] Comment on above: Performed By: #### C MP ####[facility] Bfaxowtcpu8165 [place] [address]DrKianna Tripathi ALT [Catalytic activity/Vol] 25 U/L Normal 14-59 [facility] Comment on above: Performed By: #### C MP ####[facility] Rcbwfmwaha5598 [place] [address]Dr. Airam Tripathi Anion gap [Moles/Vol] 14.0 mmol/L Normal Th e [facility] Comment on above: Performed By: #### C MP ####[facility] Mqczrrqcjb9057 [place] [address]Dr. Airam Tripathi AST [Catalytic activity/Vol] 19 U/L Normal 15-37 The [facility] Comment on above: Performed By: #### C MP ####[facility] Yslpmkintp414147 [address] [place], [place] [address]Dr. Airam Tripathi Bilirubin [Mass/Vol] 0.3 mg/dL Normal 0.2-1.0 [facility] Comment on above: Performed By: #### C MP ####[facility] Yzbjdfzmmx0345[address] [place], [place] [address]Dr. Airam Tripathi Calcium [Mass/Vol] 8.7 mg/dL Normal 8.5-10.1 [facility] Comment on above: Performed By: #### C MP ####[facility] Qldiqssihd605547 [address] [place], [place] [address]Dr. Airam Tripathi Chloride [Moles/Vol] 99 mmol/L Normal 98-107 [facility] Comment on above: Performed By: #### C MP ####[facility] Ytovfyoimb3717[address] [place], [place] [address]Dr. Selenaneil Deuce CO2 [Moles/Vol] 25.4 mmol/L Normal 21.0-32.0 The [facility] Comment on above: Performed By: #### C MP ####[facility] Tbptnrnwxm131147 [address] [place], [place] [address]Dr. Selenaneil Deuce Creatinine [Mass/Vol] 1.22 mg/dL Critically high 0.55-1.02 [facility] Comment on above: Performed By: #### C MP ####[facility] Jievghggpv616347 [address] [place], [place] [address]Dr. Selenaneil Deuce EGFR-AF QATARI 55 mL/min/1.73m2 Critically low >=60 The [facility] Comment on above: Performed By: #### C MP ####[facility] Pksnsgyltb4605 [place] [phone]. Airam Tripathi EGFR-NON AF QATARI 45 mL/min/1.73m2 Critically low >=60 [facility] Comment on above: Performed By: #### C MP ####[facility] Atfusngkdy0333 [place] [phone]. Airam Tripathi Globulin (S) [Mass/Vol] 3.2 g/dL Normal [facility] Comment on above: Performed By: #### C MP ####[facility] Qguffgwjjl9613 [place] [address]Dr. Airam Tripathi Glucose [Mass/Vol] 111 mg/dL Critically high 74-106 T [facility] Comment on above: Performed By: #### C MP ####[facility] Tncknmzvgp1595 [place] [address]Dr. Airam Tripathi Potassium [Moles/Vol] 4.4 mmol/L Normal 3.5-5.1 [facility] Comment on above: Performed By: #### C MP ####[facility] Iweqpxycao95[address] [place], [place] [address]Dr. Airam Tripathi Protein [Mass/Vol] 6.5 g/dL Normal 6.4-8.2 [facility] Comment on above: Performed By: #### C MP ####[facility] Usrbiiecjg032447 [address] [place], [place] [address]Dr. Airam Tripathi Sodium [Moles/Vol] 134 mmol/L Critically low 136-145 Th [facility] Comment on above: Performed By: #### C MP ####[facility] Gradznofto878[address] [place], [place] [address]Dr. Airam Tripathi Urea nitrogen [Mass/Vol] 27.0 mg/dL Critically high 7.0-18.0 [facility] Comment on above: Performed By: #### C MP ####[facility] Blgwitnauc45364[address] [place], [place] [address]Dr. Airam Tripathi Urea nitrogen/Creatinine [Mass ratio] 22.1 mg/mg Normal [facility] Comment on above: Performed By: #### C ####[facility] Eunhugffez1079 [place], [place] [address]XvK[address] Tri[address] CT CERVICAL SPINE WITHOUT CO NTRASTon 01-10-2022 CT CERVICAL SPINE WITHOUT CONTRAST [facility] Department of Radiology [address] [place] [id number] Patient Name: MABEL MOSER : 1960 Sex: F Age: Race: White Pt. Location: Patient Status: D Ordered Date: 08/17/2021 10:00:00 AM Completed Date: 01/10/2022 10:24 AM Requesting Provider: ROBERT JOHNSTON Attending Provider: ROBERT JOHNSTON Report Copy To: ANGLE SANTANA Signs & Symptoms: M54.12 Radiculopathy, cervical region I10 History: [place] seeing Dr. Johnston after Comments: Exam: CT [...] achievable. Electronically signed: Ayleen Ny. Transcribed by: [email or web address], User Resident: Electronically Signed by: AYLEEN [place] @ 01/12/2022 12:32 PM Normal The [facility] OSMOLALITYon 01-07-2022 Osmolality [Osmolality] 286 mosm/kg Normal 275-295 The [facility] Comment on above: Performed By: #### O SMO ####[facility] Kzljndctco542[address] [place], [place] [address]Dr. Airam Tripathi CBC AUTO DIFFon 01-06-2022 BASO # 0.0 103/ul Normal 0.0-0.1 The [facility] Comment on above: Performed By: #### C BC ####[facility] Qxpqnetobz4551 [place] [address]DrKianna Tripathi Basophils/100 WBC (Bld) 0.3 % Normal 0.2-2.0 The [facility] Comment on above: Performed By: #### C BC ####[facility] Hkisvllaaw9909[address] [place], [place] [address]DrKianna Tripathi EO # 0.2 103/ul Normal 0.0-0.7 The [facility] Comment on above: Performed By: #### C BC ####[facility] Mvqkwkooua8936 [place] [address]Dr. Airam Tripathi Eosinophils/100 WBC (Bld) 4.1 % Normal 0.9-7.0 The [facility] Comment on above: Performed By: #### C BC ####[facility] Gfxhfbhjro4165 [place] [address]Dr. Airam Tripathi Erythrocyte distribution width (RBC) [Ratio] 12.9 % Normal 11.0-15.0 The [facility] Comment on above: Performed By: #### C BC ####[facility] Rjabyiutwi2145[address] [place], [place] [address]Dr. Airam Tripathi Hematocrit (Bld) [Volume fraction] 34.2 % Critically low 36.0-48.0 The [facility] Comment on above: Performed By: #### C BC ####[facility] Gwwwqyecwp4257[address] [place], [place] [address]Dr. Airam Tripathi Hemoglobin (Bld) [Mass/Vol] 10.6 g/dL Critically low 12.0-16.0 The [facility] Comment on above: Performed By: #### C BC ####[facility] Icywghvqai2428[address] [place], [place] [address]Dr. Airam Tripathi IG # 0.03 10e3/ul Normal 0.00-0.03 The [facility] Comment on above: Performed By: #### C BC ####[facility] Bjqayxxjzn4745[address] [place], [place] [address]Dr. Airam Tripathi IG % 0.5 % Normal 0.0-0.5 The [facility] Comment on above: Performed By: #### C BC ####[facility] Vaktyfkscw865[address] [place], [place] [address]Dr. Airam Tripathi LYMPH # 1.1 103/ul Critically low 1.2-3.8 The [facility] Comment on above: Performed By: #### C BC ####[facility] Qiczwnjkrq840047 [address] [place], [place] [address]Dr. Airam Tripathi Lymphocytes/100 WBC (Bld) 18.2 % Critically low 20.5-60.0 The [facility] Comment on above: Performed By: #### C BC ####[facility] Ydnahskehe4872 [place] [address]Dr. Airam Deuce MANUAL DIFF REQ NO Normal The [facility] Comment on above: Performed By: #### C BC ####[facility] Wmrmxsbegw0062 [place] [address]Dr. Airam Deuce MCH (RBC) [Entitic mass] 29.6 pg Normal 26.7-34.0 The [facility] Comment on above: Performed By: #### C BC ####[facility] Vcfcfcndsk3508 [place] [address]Dr. Airam Deuce MCHC (RBC) [Mass/Vol] 31.0 g/dL Normal 29.9-35.2 The [facility] Comment on above: Performed By: #### C BC ####[facility] Kzgljagzus3714[address] [place], [place] [address]Dr. Selenaneil Tripathi MCV (RBC) [Entitic vol] 95.5 fL Normal 81.0-99.0 The [facility] Comment on above: Performed By: #### C BC ####[facility] Fylzjosrac4855[address] [place], [place] [address]Dr. Airam Deuce MONO # 0.5 103/ul Normal 0.3-0.8 The [facility] Comment on above: Performed By: #### C BC ####[facility] Slxuamhwti5[address] [place], [place] [address]Dr. Airam Tripathi Monocytes/100 WBC (Bld) 8.5 % Normal 1.7-12.0 The [facility] Comment on above: Performed By: #### C BC ####[facility] Ybnvrqzfxz4905[address] [place], [place] [address]Dr. Airam Tripathi NEUT # 4.0 103/ul Normal 1.4-6.5 The [facility] Comment on above: Performed By: #### C BC ####[facility] Thtovublvk8749[address] [place], [place] [address]Dr. Airam Tripathi Neutrophils/100 WBC (Bld) 68.4 % Normal 43.0-75.0 The [facility] Comment on above: Performed By: #### C BC ####[facility] Kwpxayfcqa15[address] [place], [place] [address]Dr. Airam Tripathi Platelet mean volume (Bld) [Entitic vol] 10.1 fL Normal 9.5-13.5 [facility] Comment on above: Performed By: #### C BC ####[facility] Apvdebsmvu2643 [place] [address]Dr. Airam Tripathi PLT 304 103/ul Normal 150-450 The [facility] Comment on above: Performed By: #### C BC ####[facility] Ynsqzmlbzq7581 [place] [address]Dr. Airam Tripathi RBC 3.58 106/ul Critically low 4.20-5.40 [facility] Comment on above: Performed By: #### C BC ####[facility] Owedndcqqo9939[address] [place], [place] [address]Dr. Airam Tripathi WBC 5.9 103/ul Normal 4.0-11.0 [facility] Comment on above: Performed By: #### C BC ####[facility] Qzjjwrmwro822[address] [place], [place] [address]Dr. Airam Deuce MG MAMM RT DIAG FUon 022 MG MAMM RT DIAG FU Normal [facility] PROF 14(COMP METB)on 022 Albumin [Mass/Vol] 3.1 g/dL Critically low 3.4-5.0 Th e [facility] Comment on above: Performed By: #### C MP ####[facility] Nyfjivmvxs9139[address] [place], [place] [address]Dr. Selenaneil Deuce Albumin/Globulin [Mass ratio] 1.0 {ratio} Normal The [facility] Comment on above: Performed By: #### C MP ####[facility] Ixlrdztvcn5724 [place] [address]Dr. Airam Tripathi ALP [Catalytic activity/Vol] 143 U/L Critically high 46-116 The [facility] Comment on above: Performed By: #### C MP ####[facility] Nvkkbwxfbz9243 [place] [address]Dr. Airam Tripathi ALT [Catalytic activity/Vol] 23 U/L Normal 14-59 The [facility] Comment on above: Performed By: #### C MP ####[facility] Vbmbwnxodw8337 [place] [phone]. Airam Tripathi Anion gap [Moles/Vol] 13.2 mmol/L Normal [facility] Comment on above: Performed By: #### C MP ####[facility] Tmzrkrpbzf1063 [place] [phone]. Airam Tripathi AST [Catalytic activity/Vol] 20 U/L Normal 15-37 [facility] Comment on above: Performed By: #### C MP ####[facility] Umyglhouwq0160[address] [place], [place] [address]Dr. Airam Tripathi Bilirubin [Mass/Vol] 0.3 mg/dL Normal 0.2-1.0 [facility] Comment on above: Performed By: #### C MP ####[facility] Lwbsokqcbd7714[address] [place], [place] [address]Dr. Airam Tripathi Calcium [Mass/Vol] 8.2 mg/dL Critically low 8.5-10.1 [facility] Comment on above: Performed By: #### C MP ####[facility] Fvdfcqjybc589[address] [place], [place] [address]Dr. Airam Tripathi Chloride [Moles/Vol] 100 mmol/L Normal 98-107 [facility] Comment on above: Performed By: #### C MP ####[facility] Xdrihgmbsl579[address] [place], [place] [address]Dr. Airam Tripathi CO2 [Moles/Vol] 26.0 mmol/L Normal 21.0-32.0 [facility] Comment on above: Performed By: #### C MP ####[facility] Zlcmejwdxt477447 [address] [place], [place] [address]Dr. Airam Tripathi Creatinine [Mass/Vol] 1.52 mg/dL Critically high 0.55-1.02 [facility] Comment on above: Performed By: #### C MP ####[facility] Bhsfwbkskt956847 [address] [place], [place] [address]Dr. Airam Tripathi EGFR-AF QATARI 42 mL/min/1.73m2 Critically low >=60 [facility] Comment on above: Performed By: #### C MP ####[facility] Kegegfjyel7216 [place] [phone]. Airam Tripathi EGFR-NON AF QATARI 35 mL/min/1.73m2 Critically low >=60 [facility] Comment on above: Performed By: #### C MP ####[facility] Xklsrttexi5845 [place] [phone]. Airam Tripathi Globulin (S) [Mass/Vol] 3.2 g/dL Normal [facility] Comment on above: Performed By: #### C MP ####[facility] Lcksdzibxx712847 [address] [place], [place] [address]Dr. Airam Tripathi Glucose [Mass/Vol] 84 mg/dL Normal 74-106 [facility] Comment on above: Performed By: #### C MP ####[facility] Jbeyeebbxx119947 [address] [place], [place] [address]Dr. Airam Tripathi Potassium [Moles/Vol] 4.2 mmol/L Normal 3.5-5.1 [facility] Comment on above: Performed By: #### C MP ####[facility] Uoxbbywzdw2611[address] [place], [place] [address]Dr. Airam Tripathi Protein [Mass/Vol] 6.3 g/dL Critically low 6.4-8.2 [facility] Comment on above: Performed By: #### C MP ####[facility] Xgzzmtdcto908647 [address] [place], [place] [address]Dr. Airam Tripathi Sodium [Moles/Vol] 135 mmol/L Critically low 136-145 [facility] Comment on above: Performed By: #### C MP ####[facility] Uezdsbtels1155[address] [place], [place] [address]Dr. Airam Tripathi Urea nitrogen [Mass/Vol] 36.0 mg/dL Critically high 7.0-18.0 [facility] Comment on above: Performed By: #### C MP ####[facility] Berpopkhtb866347 [address] [place], [place] [address]Dr. Airam Tripathi Urea nitrogen/Creatinine [Mass ratio] 23.7 mg/mg Normal [facility] Comment on above: Performed By: #### C MP ####[facility] Ijlntmpyfc6424 [place] [address]Dr. Airam Tripathi US BREAST RIGHT LIMITEDon US BREAST RIGHT LIMITED Normal [facility] OSMOLALITYon 12-31-2021 Osmolality [Osmolality] 280 mosm/kg Normal 275-295 The [facility] Comment on above: Performed By: #### O SMO ####[facility] Lovstxaxqp8317[address] [place], [place] [address]Dr. Airam Tripathi CBC AUTO DIFFon 12-30-2021 BASO # 0.0 103/ul Normal 0.0-0.1 The [facility] Comment on above: Performed By: #### C BC ####[facility] Jnnnqlapsy6359[address] [place], [place] [address]DrKianna Tripathi Basophils/100 WBC (Bld) 0.5 % Normal 0.2-2.0 The [facility] Comment on above: Performed By: #### C BC ####[facility] Issoxjlkab5533[address] [place], [place] [address]DrKianna Tripathi EO # 0.3 103/ul Normal 0.0-0.7 The [facility] Comment on above: Performed By: #### C BC ####[facility] Hgegntphoq483[address] [place], [place] [address]DrKianna Tripathi Eosinophils/100 WBC (Bld) 3.5 % Normal 0.9-7.0 The [facility] Comment on above: Performed By: #### C BC ####[facility] Xwhoivggqi0138[address] [place], [place] [address]DrKianna Tripathi Erythrocyte distribution width (RBC) [Ratio] 13.0 % Normal 11.0-15.0 [facility] Comment on above: Performed By: #### C BC ####[facility] Dhkrzrenxu857[address] [place], [place] [address]DrKianna Tripathi Hematocrit (Bld) [Volume fraction] 34.2 % Critically low 36.0-48.0 The [facility] Comment on above: Performed By: #### C BC ####[facility] Avrpseyvib7780[address] [place], [place] [address]Dr. Airam Tripathi Hemoglobin (Bld) [Mass/Vol] 10.4 g/dL Critically low 12.0-16.0 [facility] [facility] Comment on above: Performed By: #### C BC ####[facility] Towtdpbuej[address] [place] [address]DrKianna Tripathi IG # 0.04 10e3/ul Critically high 0.00-0.03 [facility] Comment on above: Performed By: #### C BC ####[facility] Ixswqznysa[address] [place], [place] [address]Dr. Airam Tripathi IG % 0.5 % Normal 0.0-0.5 [facility] Comment on above: Performed By: #### C BC ####[facility] Grzyohtmjh[address] [place], [place] [address]DrKianna Tripathi LYMPH # 2.1 103/ul Normal 1.2-3.8 [facility] Comment on above: Performed By: #### C BC ####[facility] Ihlpxojmvz552947 [address] [place], [place] [address]Dr. Airma Tripathi Lymphocytes/100 WBC (Bld) 23.5 % Normal 20.5-60.0 [facility] Comment on above: Performed By: #### C BC ####[facility] Ydyoqzmxqz9069[address] [place], [place] [address]DrKianna Tripathi MANUAL DIFF REQ NO Normal [facility] Comment on above: Performed By: #### C BC ####[facility] Oorjlprabx655[address] [place], [place] [address]DrKianna Tripathi MCH (RBC) [Entitic mass] 29.4 pg Normal 26.7-34.0 [facility] Comment on above: Performed By: #### C BC ####[facility] Xjyjhdutbr[address] [place], [place] [address]DrKianna Tripathi MCHC (RBC) [Mass/Vol] 30.4 g/dL Normal 29.9-35.2 [facility] Comment on above: Performed By: #### C BC ####[facility] Xgonghrqgc778[address] [place], [place] [address]DrKianna Tripathi MCV (RBC) [Entitic vol] 96.6 fL Normal 81.0-99.0 [facility] Comment on above: Performed By: #### C BC ####[facility] Tboooleybe260[address] [place], [place] [address]DrKianna Tripathi MONO # 0.6 103/ul Normal 0.3-0.8 [facility] Comment on above: Performed By: #### C BC ####[facility] Tzdkwvygci2929[address] [place], [place] [address]DrKianna Airam Tripathi Monocytes/100 WBC (Bld) 6.4 % Normal 1.7-12.0 [facility] Comment on above: Performed By: #### C BC ####[facility] Rqjwmigkou017447 [address] [place], [place] [address]DrKianna Airam Tripathi NEUT # 5.8 103/ul Normal 1.4-6.5 [facility] Comment on above: Performed By: #### C BC ####[facility] Uymoxowiaq0165[address] [place], [place] [address]DrKianna Airam Tripathi Neutrophils/100 WBC (Bld) 65.6 % Normal 43.0-75.0 [facility] Comment on above: Performed By: #### C BC ####[facility] Kxgbqicsyz769747 [address] [place], [place] [address]DrKianna Airam Tripathi Platelet mean volume (Bld) [Entitic vol] 9.2 fL Critically low 9.5-13.5 [facility] Comment on above: Performed By: #### C BC ####[facility] Jfdocbwgji08224[address] [place], [place] [address]DrKianna Airam Tripathi PLT 338 103/ul Normal 150-450 [facility] Comment on above: Performed By: #### C BC ####[facility] Qelpmymwuk4615[address] [place], [place] [address]DrKianna Airam Deuce RBC 3.54 106/ul Critically low 4.20-5.40 [facility] Comment on above: Performed By: #### C BC ####[facility] Vvpmdhbsvl538047 [address] [place], [place] [address]DrKianna Waltersneil Tripathi WBC 8.9 103/ul Normal 4.0-11.0 [facility] Comment on above: Performed By: #### C BC ####[facility] Dbkswbazpp597947 [address] [place], [place] [address]Dr. Airam Tripathi MG MAMM SCREEN 3D GUMARO CADon 12-30-2021 MG MAMM SCREEN 3D GUMARO CAD Normal [facility] PROF 14(COMP METB)on 022 Albumin [Mass/Vol] 3.6 g/dL Normal 3.4-5.0 [facility] Comment on above: Performed By: #### C MP ####[facility] Stpqnwqsfb111447 [address] [place], [place] [address]Dr. Airam Tripathi Albumin/Globulin [Mass ratio] 1.1 {ratio} Normal [facility] Comment on above: Performed By: #### C MP ####[facility] Jjupvqkorm6312[address] [place], [place] [address]Dr. Airam Tripathi ALP [Catalytic activity/Vol] 117 U/L Critically high 46-116 [facility] Comment on above: Performed By: #### C MP ####[facility] Kgewxiahed084947 [address] [place], [place] [address]Dr. Airam Tripathi ALT [Catalytic activity/Vol] 26 U/L Normal 14-59 [facility] Comment on above: Performed By: #### C MP ####[facility] Jzkqlushxb079247 [address] [place], [place] [address]Dr. Airam Tripathi Anion gap [Moles/Vol] 11.2 mmol/L Normal [facility] Comment on above: Performed By: #### C MP ####[facility] Cxpudqmpzs366247 [address] [place], [place] [address]Dr. Airam Tripathi AST [Catalytic activity/Vol] 29 U/L Normal 15-37 [facility] Comment on above: Performed By: #### C MP ####[facility] Uoheyfomsl444447 [address] [place], [place] [address]Dr. Airam Tripathi Bilirubin [Mass/Vol] 0.3 mg/dL Normal 0.2-1.0 [facility] Comment on above: Performed By: #### C MP ####[facility] Nnibrtgokc5[address] [place] [phone]. Airam Tripathi Calcium [Mass/Vol] 9.1 mg/dL Normal 8.5-10.1 [facility] Comment on above: Performed By: #### C MP ####[facility] Vurbpubhrv38[address] [place] [phone]. Airam Tripathi Chloride [Moles/Vol] 101 mmol/L Normal 98-107 [facility] Comment on above: Performed By: #### C MP ####[facility] Xmfjjrcumj8179 [place] [phone]. Airam Tripathi CO2 [Moles/Vol] 26.8 mmol/L Normal 21.0-32.0 [facility] Comment on above: Performed By: #### C MP ####[facility] Yanmnfejam5705 [place] [address]Dr. Airam Tripathi Creatinine [Mass/Vol] 1.56 mg/dL Critically high 0.55-1.02 [facility] Comment on above: Performed By: #### C MP ####[facility] Xhnkpomvac5988 [place] [phone]. Airam Tripathi EGFR-AF QATARI 41 mL/min/1.73m2 Critically low >=60 [facility] Comment on above: Performed By: #### C MP ####[facility] Zgfpkozddv9324 [place] [phone]. Airam Tripathi EGFR-NON AF QATARI 34 mL/min/1.73m2 Critically low >=60 [facility] Comment on above: Performed By: #### C MP ####[facility] Ncmizgzyfk4594 [place] [phone]. Airam Tripathi Globulin (S) [Mass/Vol] 3.3 g/dL Normal [facility] Comment on above: Performed By: #### C MP ####[facility] Yzpnirnfvm2931 [place] [address]Dr. Airam Deuce Glucose [Mass/Vol] 84 mg/dL Normal 74-106 [facility] Comment on above: Performed By: #### C MP ####[facility] Aniyjjkiig7707 [place] [address]Dr. Airam Tripathi Potassium [Moles/Vol] 5.0 mmol/L Normal 3.5-5.1 [facility] Comment on above: Performed By: #### C MP ####[facility] Utfrglkdho9205 [place] [address]Dr. iAram Tripathi Protein [Mass/Vol] 6.9 g/dL Normal 6.4-8.2 [facility] Comment on above: Performed By: #### C MP ####[facility] Wlgcudzyha301347 [address] [place], [place] [address]Dr. Airam Tripathi Sodium [Moles/Vol] 134 mmol/L Critically low 136-145 Th [facility] Comment on above: Performed By: #### C MP ####[facility] Tlrzuxwrks300947 [address] [place], [place] [address]Dr. Airam Tripathi Urea nitrogen [Mass/Vol] 28.0 mg/dL Critically high 7.0-18.0 [facility] Comment on above: Performed By: #### C MP ####[facility] Xujybpeopz0316[address] [place], [place] [address]Dr. Airam Tripathi Urea nitrogen/Creatinine [Mass ratio] 17.9 mg/mg Normal [facility] Comment on above: Performed By: #### C MP ####[facility] Engkslpeoe803747 [address] [place], [place] [address]Dr. Airam Tripathi OSMOLALITYon 12-24-2021 Osmolality [Osmolality] 287 mosm/kg Normal 275-295 [facility] Comment on above: Performed By: #### O SMO ####[facility] Ttjfdnwkgi680547 [address] [place], [place] [address]Dr. Airam Tripathi CBC AUTO DIFFon 12-22-2021 BASO # 0.0 103/ul Normal 0.0-0.1 [facility] Comment on above: Performed By: #### C BC ####[facility] Xhlshkwwgi864147 [address] [place], [place] [address]Dr. Airam Tripathi Basophils/100 WBC (Bld) 0.5 % Normal 0.2-2.0 [facility] Comment on above: Performed By: #### C BC ####[facility] Teebstfqjy7[address] [place] [phone]. Airam Tripathi EO # 0.4 103/ul Normal 0.0-0.7 [facility] Comment on above: Performed By: #### C BC ####[facility] Tfviboixsl3886 [place] [address]Dr. Airam Tripathi Eosinophils/100 WBC (Bld) 6.4 % Normal 0.9-7.0 [facility] Comment on above: Performed By: #### C BC ####[facility] Rvzfgtndki098047 [address] [place], [place] [address]Dr. Airam Tripathi Erythrocyte distribution width (RBC) [Ratio] 13.2 % Normal 11.0-15.0 [facility] Comment on above: Performed By: #### C BC ####[facility] Jjdxtcuomz190947 [address] [place], [place] [address]Dr. Airam Tripathi Hematocrit (Bld) [Volume fraction] 32.2 % Critically low 36.0-48.0 [facility] Comment on above: Performed By: #### C BC ####[facility] Aiwdptlqgw883447 [address] [place], [place] [address]Dr. Airam Tripathi Hemoglobin (Bld) [Mass/Vol] 10.1 g/dL Critically low 12.0-16.0 [facility] Comment on above: Performed By: #### C BC ####[facility] Ojmcxcotbv280747 [address] [place], [place] [address]Dr. Airam Tripathi IG # 0.03 10e3/ul Normal 0.00-0.03 [facility] Comment on above: Performed By: #### C BC ####[facility] Ndoyowkmuu7697[address] [place], [place] [address]Dr. Airam Tripathi IG % 0.5 % Normal 0.0-0.5 [facility] Comment on above: Performed By: #### C BC ####[facility] Fxfzqurgok303347 [address] [place], [place] [address]Dr. Airam Tripathi LYMPH # 1.3 103/ul Normal 1.2-3.8 [facility] Comment on above: Performed By: #### C BC ####[facility] Nlyyoxqsob9712 [place] [phone]. Airam Tripathi Lymphocytes/100 WBC (Bld) 20.5 % Normal 20.5-60.0 [facility] Comment on above: Performed By: #### C BC ####[facility] Lyxqkdnvam6221 [place] [phone]. Airam Tripathi MANUAL DIFF REQ NO Normal [facility] Comment on above: Performed By: #### C BC ####[facility] Ywnqhzihcz[address] [place], [place] [address]Dr. Airam Deuce MCH (RBC) [Entitic mass] 30.1 pg Normal 26.7-34.0 [facility] Comment on above: Performed By: #### C BC ####[facility] Nwhqfzybtx1127[address] [place], [place] [address]Dr. Airam Deuce MCHC (RBC) [Mass/Vol] 31.4 g/dL Normal 29.9-35.2 [facility] Comment on above: Performed By: #### C BC ####[facility] Zymqtfevxc80[address] [place] [address]Dr. Airam Tripathi MCV (RBC) [Entitic vol] 95.8 fL Normal 81.0-99.0 [facility] Comment on above: Performed By: #### C BC ####[facility] Omfysizlid69[address] [place], [place] [address]Dr. Airam Deuce MONO # 0.5 103/ul Normal 0.3-0.8 [facility] Comment on above: Performed By: #### C BC ####[facility] Urfpgziysp708[address] [place], [place] [address]Dr. Airam Deuce Monocytes/100 WBC (Bld) 7.4 % Normal 1.7-12.0 [facility] Comment on above: Performed By: #### C BC ####[facility] Pkprxfmhqr28[address] [place], [place] [address]Dr. Airam Tripathi NEUT # 3.9 103/ul Normal 1.4-6.5 [facility] Comment on above: Performed By: #### C BC ####[facility] Bkkkhgyvfj2866 [place] [phone]. Airam Tripathi Neutrophils/100 WBC (Bld) 64.7 % Normal 43.0-75.0 [facility] Comment on above: Performed By: #### C BC ####[facility] Coqeeinlhd2285 [place] [phone]. Airam Tripathi Platelet mean volume (Bld) [Entitic vol] 9.2 fL Critically low 9.5-13.5 [facility] Comment on above: Performed By: #### C BC ####[facility] Rjazhlzbji5224 [place] [address]Dr. Airam Tripathi PLT 309 103/ul Normal 150-450 [facility] Comment on above: Performed By: #### C BC ####[facility] Qjjvoxhffw2849 [place] [address]Dr. Airam Tripathi RBC 3.36 106/ul Critically low 4.20-5.40 [facility] Comment on above: Performed By: #### C BC ####[facility] Qgajzahfav6721 [place] [address]Dr. Airam Tripathi WBC 6.1 103/ul Normal 4.0-11.0 [facility] Comment on above: Performed By: #### C BC ####[facility] Wcjrynlirk1198 [place] [address]Dr. Airam Tripathi PROF 14(COMP METB)on 022 Albumin [Mass/Vol] 3.2 g/dL Critically low 3.4-5.0 [facility] Comment on above: Performed By: #### C MP ####[facility] Llvcmobuna0291 [place] [address]Dr. Airam Tripathi Albumin/Globulin [Mass ratio] 1.1 {ratio} Normal [facility] Comment on above: Performed By: #### C MP ####[facility] Kaqokyiaun7334 [place] [address]Dr. Airam Tripathi ALP [Catalytic activity/Vol] 123 U/L Critically high 46-116 [facility] Comment on above: Performed By: #### C MP ####[facility] Knvizgqhnf4712 [place] [phone]. Airam Tripathi ALT [Catalytic activity/Vol] 26 U/L Normal 14-59 [facility] Comment on above: Performed By: #### C MP ####[facility] Cgwxsuauec1618 [place], [place] [address]Qn. Airam Tripathi Anion gap [Moles/Vol] 14.5 mmol/L Normal Th [facility] Comment on above: Performed By: #### C MP ####[facility] Dbzxorrnqw8946 [place] [phone]. Airam Tripathi AST [Catalytic activity/Vol] 23 U/L Normal 15-37 [facility] Comment on above: Performed By: #### C MP ####[facility] Wedsbxhyrx9272 [place] [phone]. Airam Tripathi Bilirubin [Mass/Vol] 0.3 mg/dL Normal 0.2-1.0 [facility] Comment on above: Performed By: #### C MP ####[facility] Rhsjnroxjn3469 [place] [phone]. Airam Tripathi Calcium [Mass/Vol] 8.2 mg/dL Critically low 8.5-10.1 [facility] Comment on above: Performed By: #### C MP ####[facility] Jpgnhzfois2127 [place] [phone]. Airam Tripathi Chloride [Moles/Vol] 102 mmol/L Normal 98-107 [facility] Comment on above: Performed By: #### C MP ####[facility] Cefazxkhjx4282 [place] [phone]. Airam Tripathi CO2 [Moles/Vol] 23.2 mmol/L Normal 21.0-32.0 [facility] Comment on above: Performed By: #### C MP ####[facility] Zlylucntjn17[address] [place], [place] [address]Dr. Airam Tripathi Creatinine [Mass/Vol] 1.98 mg/dL Critically high 0.55-1.02 [facility] Comment on above: Performed By: #### C MP ####[facility] Ezbohcjxfd8162 [place], [place] [address]Uq. Airam Tripathi EGFR-AF QATARI 31 mL/min/1.73m2 Critically low >=60 [facility] Comment on above: Performed By: #### C MP ####[facility] Oyrgxmmlui9348 [place] [phone]. Airam Tripathi EGFR-NON AF QATARI 26 mL/min/1.73m2 Critically low >=60 [facility] Comment on above: Performed By: #### C MP ####[facility] Hxiujeaphi2985 [place] [phone]. Airam Tripathi Globulin (S) [Mass/Vol] 3.0 g/dL Normal [facility] Comment on above: Performed By: #### C MP ####[facility] Rlclajwupv4792 [place] [phone]. Airam Tripathi Glucose [Mass/Vol] 131 mg/dL Critically high 74-106 T [facility] Comment on above: Performed By: #### C MP ####[facility] Kngouhyjst1641 [place] [phone]. Airam Tripathi Potassium [Moles/Vol] 4.7 mmol/L Normal 3.5-5.1 [facility] Comment on above: Performed By: #### C MP ####[facility] Fwcitbxibj3284 [place] [phone]. Airam Tripathi Protein [Mass/Vol] 6.2 g/dL Critically low 6.4-8.2 Th [facility] Comment on above: Performed By: #### C MP ####[facility] Sczytbyxah6720 [place] [phone]. Airam Tripathi Sodium [Moles/Vol] 135 mmol/L Critically low 136-145 Th [facility] Comment on above: Performed By: #### C MP ####[facility] Zeqrbkudxu0896 [place] [phone]. Airam Tripathi Urea nitrogen [Mass/Vol] 37.0 mg/dL Critically high 7.0-18.0 [facility] Comment on above: Performed By: #### C MP ####[facility] Cjphmmfwns7194 [place] [phone]. Airam Tripathi Urea nitrogen/Creatinine [Mass ratio] 18.7 mg/mg Normal [facility] Comment on above: Performed By: #### C MP ####[facility] Ftjnslpifa3543 [place] [phone]. Airam Tripathi OSMOLALITYon 12-18-2021 Osmolality [Osmolality] 271 mosm/kg Critically low 275-295 [facility] Comment on above: Performed By: #### O SMO ####[facility] Cydjcfvdvz24[address] [place], [place] [address]Dr. Airam Deuce CBC AUTO DIFFon 12-16-2021 BASO # 0.0 103/ul Normal 0.0-0.1 [facility] Comment on above: Performed By: #### C BC ####[facility] Hjlmwmlpzi450[address] [place], [place] [address]Dr. Airam Tripathi Basophils/100 WBC (Bld) 0.6 % Normal 0.2-2.0 [facility] Comment on above: Performed By: #### C BC ####[facility] Jbptmldjdz7460[address] [place], [place] [address]Dr. Airam Tripathi EO # 0.1 103/ul Normal 0.0-0.7 [facility] Comment on above: Performed By: #### C BC ####[facility] Eswwzqvbxb1316[address] [place], [place] [address]Dr. Airam Tripathi Eosinophils/100 WBC (Bld) 2.1 % Normal 0.9-7.0 [facility] Comment on above: Performed By: #### C BC ####[facility] Kueqlqfwre087[address] [place], [place] [address]Dr. Selenaneil Tripathi Erythrocyte distribution width (RBC) [Ratio] 13.1 % Normal 11.0-15.0 [facility] Comment on above: Performed By: #### C BC ####[facility] Zaudiaqmfx7714[address] [place], [place] [address]Dr. Airam Tripathi Hematocrit (Bld) [Volume fraction] 33.8 % Critically low 36.0-48.0 [facility] Comment on above: Performed By: #### C BC ####[facility] Ixdqwhxeof2894 [place] [address]Dr. Airam Tripathi Hemoglobin (Bld) [Mass/Vol] 10.7 g/dL Critically low 12.0-16.0 [facility] Comment on above: Performed By: #### C BC ####[facility] Wkkgrcirxf4074 [place] [address]Dr. Airam Tripathi IG # 0.02 10e3/ul Normal 0.00-0.03 [facility] Comment on above: Performed By: #### C BC ####[facility] Znybbxjblm508[address] [place], [place] [address]Dr. Airam Tripathi IG % 0.3 % Normal 0.0-0.5 [facility] Comment on above: Performed By: #### C BC ####[facility] Wvnmmhxsij179[address] [place], [place] [address]Dr. Airam Tripathi LYMPH # 1.2 103/ul Normal 1.2-3.8 [facility] Comment on above: Performed By: #### C BC ####[facility] Eoezjrzrgv1733[address] [place], [place] [address]Dr. Airam Tripathi Lymphocytes/100 WBC (Bld) 17.3 % Critically low 20.5-60.0 [facility] Comment on above: Performed By: #### C BC ####[facility] Acesdmabhv083[address] [place], [place] [address]Dr. Airam Trpiathi MANUAL DIFF REQ NO Normal [facility] Comment on above: Performed By: #### C BC ####[facility] Muhnjomehf5911[address] [place], [place] [address]Dr. Airam Tripathi MCH (RBC) [Entitic mass] 30.2 pg Normal 26.7-34.0 [facility] Comment on above: Performed By: #### C BC ####[facility] Qfhfmllgyy4775[address] [place], [place] [address]Dr. Airam Tripathi MCHC (RBC) [Mass/Vol] 31.7 g/dL Normal 29.9-35.2 [facility] Comment on above: Performed By: #### C BC ####[facility] Ynpiosblzz1162 [place] [phone]. Airam Tripathi MCV (RBC) [Entitic vol] 95.5 fL Normal 81.0-99.0 [facility] Comment on above: Performed By: #### C BC ####[facility] Obmamvtcos4215 [place] [phone]. Airam Deuce MONO # 0.5 103/ul Normal 0.3-0.8 [facility] Comment on above: Performed By: #### C BC ####[facility] Hjwuuxmozl0104 [place] [phone]. Airam Deuce Monocytes/100 WBC (Bld) 6.8 % Normal 1.7-12.0 [facility] Comment on above: Performed By: #### C BC ####[facility] Dropwrxkll1334[address] [place], [place] [address]Dr. Airam Deuce NEUT # 4.9 103/ul Normal 1.4-6.5 [facility] Comment on above: Performed By: #### C BC ####[facility] Ppxfcdvagj39[address] [place], [place] [address]Dr. Selenaneil Tripathi Neutrophils/100 WBC (Bld) 72.9 % Normal 43.0-75.0 [facility] Comment on above: Performed By: #### C BC ####[facility] Hfbworwitd367[address] [place], [place] [address]Dr. Airam Tripathi Platelet mean volume (Bld) [Entitic vol] 9.0 fL Critically low 9.5-13.5 [facility] Comment on above: Performed By: #### C BC ####[facility] Ecwkuanbek0934[address] [place], [place] [address]Dr. Airam Tripathi PLT 297 103/ul Normal 150-450 [facility] Comment on above: Performed By: #### C BC ####[facility] Lhwdktnjow7251 [place] [phone]. Airam Tripathi RBC 3.54 106/ul Critically low 4.20-5.40 [facility] Comment on above: Performed By: #### C BC ####[facility] Xurffedevn5328 [place] [address]Dr. Airam Tripathi WBC 6.8 103/ul Normal 4.0-11.0 [facility] Comment on above: Performed By: #### C BC ####[facility] Otiipdjtdc1404 [place] [address]Dr. Airam Tripathi PROF 14(COMP METB)on 022 Albumin [Mass/Vol] 3.2 g/dL Critically low 3.4-5.0 [facility] Comment on above: Performed By: #### C MP ####[facility] Haefexynad320[address] [place], [place] [address]Dr. Airam Tripathi Albumin/Globulin [Mass ratio] 1.0 {ratio} Normal [facility] Comment on above: Performed By: #### C MP ####[facility] Tbqqqpmprr[address] [place], [place] [address]Dr. Airam Tripahti ALP [Catalytic activity/Vol] 109 U/L Normal 46-116 [facility] Comment on above: Performed By: #### C MP ####[facility] Wtdozcneoo376[address] [place], [place] [address]Dr. Airam Tripathi ALT [Catalytic activity/Vol] 23 U/L Normal 14-59 [facility] Comment on above: Performed By: #### C MP ####[facility] Kjinrzaipg033[address] [place], [place] [address]Dr. Airam Tripathi Anion gap [Moles/Vol] 11.6 mmol/L Normal [facility] Comment on above: Performed By: #### C MP ####[facility] [facility] [id number] [place], [place] [address]Dr. Airam Tripathi AST [Catalytic activity/Vol] 24 U/L Normal 15-37 [facility] Comment on above: Performed By: #### C MP ####[facility] [address] [place], [place] [address]Dr. Airam Tripathi Bilirubin [Mass/Vol] 0.2 mg/dL Normal 0.2-1.0 [facility] Comment on above: Performed By: #### C MP ####[facility] [address]qbpav[address] [place] [address]Dr. Airam Tripathi Calcium [Mass/Vol] 8.6 mg/dL Normal 8.5-10.1 [facility] Comment on above: Performed By: #### C MP ####[facility] Dymcazyvsu4[address] [place] [address]Dr. iAram Tripathi Chloride [Moles/Vol] 100 mmol/L Normal 98-107 [facility] Comment on above: Performed By: #### C MP ####[facility] [address]uykfwmchp76[address] [place] [address]Dr. Airam Tripathi CO2 [Moles/Vol] 24.7 mmol/L Normal 21.0-32.0 [facility] Comment on above: Performed By: #### C MP ####[facility] Doicm[address] [place], [place] [address]Dr. Airam Tripathi Creatinine [Mass/Vol] 1.11 mg/dL Critically high 0.55-1.02 [facility] Comment on above: Performed By: #### C MP ####[facility] W[address] [place], [place] [address]Dr. Airam Tripathi EGFR-AF QATARI >60 Normal >=60 [facility] Comment on above: Performed By: #### C MP ####[facility] [address] [place] [address]Dr. Airam Tripathi EGFR-NON AF QATARI 50 mL/min/1.73m2 Critically low >=60 [facility] Comment on above: Performed By: #### C MP ####[facility] Dnapxdbvnm0759 [place] [address]Dr. Airam Tripathi Globulin (S) [Mass/Vol] 3.1 g/dL Normal [facility] Comment on above: Performed By: #### C MP ####[facility] Vraiwurjpu50[address] [place] [address]Dr. Airam Tripathi Glucose [Mass/Vol] 79 mg/dL Normal 74-106 [facility] Comment on above: Performed By: #### C MP ####[facility] Sclhanoefb8622 [place] [address]Dr. Airam Tripathi Potassium [Moles/Vol] 5.3 mmol/L Critically high 3.5-5.1 [facility] Comment on above: Performed By: #### C MP ####[facility] W[address]az[address] [place], [place] [address]Dr. Selenaneil Deuce Protein [Mass/Vol] 6.3 g/dL Critically low 6.4-8.2 Th [facility] Comment on above: Performed By: #### C MP ####[facility] Mjgqnteaw[address] [place], [place] [address]Dr. Airam Tripathi Sodium [Moles/Vol] 131 mmol/L Critically low 136-145 Th [facility] Comment on above: Performed By: #### C MP ####[facility] Kz[address]umq[address] [place], [place] [address]Dr. Airam Tripathi Urea nitrogen [Mass/Vol] 20.0 mg/dL Critically high 7.0-18.0 [facility] Comment on above: Performed By: #### C MP ####[facility] Ynvlnosjtl[address] [place], [place] [address]Dr. Airam Tripathi Urea nitrogen/Creatinine [Mass ratio] 18.0 mg/mg Normal [facility] Comment on above: Performed By: #### C MP ####[facility] V[address]agszonx[address] [place], [place] [address]Dr. Selenaneil Deuce OSMOLALITYon 12-09-2021 Osmolality [Osmolality] 279 mosm/kg Normal 275-295 [facility] Comment on above: Performed By: #### O SMO ####[facility] Qjvctmwvim4[address] [place], [place] [address]Dr. Selenaneil Deuce CBC AUTO DIFFon 12-07-2021 BASO # 0.0 103/ul Normal 0.0-0.1 [facility] Comment on above: Performed By: #### C BC ####[facility] Ygvaxsitej[address] [place], [place] [address]Dr. Airam Tripathi Basophils/100 WBC (Bld) 0.5 % Normal 0.2-2.0 [facility] Comment on above: Performed By: #### C BC ####[facility] [address]oshqkbgl04[address] [place] [id number]. Airam Tripathi EO # 0.4 103/ul Normal 0.0-0.7 [facility] Comment on above: Performed By: #### C BC ####[facility] Wbymeryjlv5659 [place] [address]Dr. Airam Tripathi Eosinophils/100 WBC (Bld) 6.3 % Normal 0.9-7.0 [facility] Comment on above: Performed By: #### C BC ####[facility] Xahfqealky7714 [place] [address]Dr. Airam Tripathi Erythrocyte distribution width (RBC) [Ratio] 13.3 % Normal 11.0-15.0 [facility] Comment on above: Performed By: #### C BC ####[facility] Agtjfvsscl[address] [place], [place] [address]Dr. Airam Tripathi Hematocrit (Bld) [Volume fraction] 29.5 % Critically low 36.0-48.0 [facility] Comment on above: Performed By: #### C BC ####[facility] Mijlx[address]iuw[address] [place], [place] [address]Dr. Airam Tripathi Hemoglobin (Bld) [Mass/Vol] 9.1 g/dL Critically low 12.0-16.0 [facility] Comment on above: Performed By: #### C BC ####[facility] [address] [place], [place] [address]Dr. Airam Tripathi IG # 0.04 10e3/ul Critically high 0.00-0.03 [facility] Comment on above: Performed By: #### C BC ####[facility] R[address]fs[address]ip[address] [place], [place] [address]Dr. Airam Tripathi IG % 0.7 % Critically high 0.0-0.5 The [facility] Comment on above: Performed By: #### C BC ####[facility] K[address]cekxfgc[address] [place], [place] [address]Dr. Selenaneil Tripathi LYMPH # 1.3 103/ul Normal 1.2-3.8 The [facility] Comment on above: Performed By: #### C BC ####[facility] Ykdgphosuq0679 [place] [phone]. Airam Tripathi Lymphocytes/100 WBC (Bld) 20.9 % Normal 20.5-60.0 [facility] Comment on above: Performed By: #### C BC ####[facility] Oyeqwjilpg98[address] [place] [address]Dr. Airam Tripathi MANUAL DIFF REQ NO Normal [facility] Comment on above: Performed By: #### C BC ####[facility] Qhtfdkxtnu2794 [place] [phone]. Airam Tripathi MCH (RBC) [Entitic mass] 30.1 pg Normal 26.7-34.0 [facility] Comment on above: Performed By: #### C BC ####[facility] Wnokfvuflt[address] [place], [place] [address]Dr. Airam Tripathi MCHC (RBC) [Mass/Vol] 30.8 g/dL Normal 29.9-35.2 [facility] Comment on above: Performed By: #### C BC ####[facility] Nfkyxwx[address]xe[address] [place], [place] [address]Dr. Airam Tripathi MCV (RBC) [Entitic vol] 97.7 fL Normal 81.0-99.0 [facility] Comment on above: Performed By: #### C BC ####[facility] Peuh[address]udiz[address] [place], [place] [address]Dr. Airam Tripathi MONO # 0.4 103/ul Normal 0.3-0.8 [facility] Comment on above: Performed By: #### C BC ####[facility] [address]sw[address] [place], [place] [address]Dr. Airam Tripathi Monocytes/100 WBC (Bld) 6.6 % Normal 1.7-12.0 The [facility] Comment on above: Performed By: #### C BC ####[facility] Craquy[address]fa[address] [place], [place] [address]Dr. Airam Tripathi NEUT # 4.0 103/ul Normal 1.4-6.5 The [facility] Comment on above: Performed By: #### C BC ####[facility] Xzwmcganrl5685 [place] [phone]. Selenaneil Deuce Neutrophils/100 WBC (Bld) 65.0 % Normal 43.0-75.0 [facility] Comment on above: Performed By: #### C BC ####[facility] Laykqmyrlg0519 [place] [phone]. Selenaneil Deuce Platelet mean volume (Bld) [Entitic vol] 9.4 fL Critically low 9.5-13.5 [facility] Comment on above: Performed By: #### C BC ####[facility] Cjimtmsebf75[address] [place] [phone]. Airam Tripathi PLT 224 103/ul Normal 150-450 [facility] Comment on above: Performed By: #### C BC ####[facility] Ghljfgaubl5410 [place] [phone]. Airam Tripathi RBC 3.02 106/ul Critically low 4.20-5.40 [facility] Comment on above: Performed By: #### C BC ####[facility] Dtifavgfda7459 [place] [phone]. Airam Tripathi WBC 6.1 103/ul Normal 4.0-11.0 [facility] Comment on above: Performed By: #### C BC ####[facility] Amqfszhppk7[address] [place] [phone] Tripathi PROF 14(COMP METB)on 022 Albumin [Mass/Vol] 2.8 g/dL Critically low 3.4-5.0 [facility] Comment on above: Performed By: #### C MP ####[facility] Vuxnhavasz53[address] [place] [phone] Tripathi Albumin/Globulin [Mass ratio] 1.1 {ratio} Normal [facility] Comment on above: Performed By: #### C MP ####[facility] Njrjjtkdtw7155 [place] [phone] Tripathi ALP [Catalytic activity/Vol] 116 U/L Normal 46-116 [facility] Comment on above: Performed By: #### C MP ####[facility] Ywsbsvvgxg8052 [place] [phone]. Airam Tripathi ALT [Catalytic activity/Vol] 23 U/L Normal 14-59 [facility] Comment on above: Performed By: #### C MP ####[facility] Ivexjxwgti3396 [place] [phone]. Airam Tripathi Anion gap [Moles/Vol] 12.1 mmol/L Normal Th [facility] Comment on above: Performed By: #### C MP ####[facility] Kxopanyyhw0239 [place] [phone]. Airam Tripathi AST [Catalytic activity/Vol] 23 U/L Normal 15-37 [facility] Comment on above: Performed By: #### C MP ####[facility] Bczkirqsuq0545 [place] [address]Dr. Airam Deuce Bilirubin [Mass/Vol] 0.2 mg/dL Normal 0.2-1.0 [facility] Comment on above: Performed By: #### C MP ####[facility] Qscopeswse6422 [place] [address]Dr. Airam Deuce Calcium [Mass/Vol] 8.1 mg/dL Critically low 8.5-10.1 [facility] Comment on above: Performed By: #### C MP ####[facility] Dmsnntvbuz2381 [place] [address]Dr. Airam Deuce Chloride [Moles/Vol] 105 mmol/L Normal 98-107 [facility] Comment on above: Performed By: #### C MP ####[facility] Necuaglymf3952 [place] [phone]. Airam Deuce CO2 [Moles/Vol] 22.1 mmol/L Normal 21.0-32.0 [facility] Comment on above: Performed By: #### C MP ####[facility] Lqrzhdarwf9768 [place] [phone]. Selenaneil Tripathi Creatinine [Mass/Vol] 1.06 mg/dL Critically high 0.55-1.02 [facility] Comment on above: Performed By: #### C MP ####[facility] Aarzmihess58[address] [place] [phone]. Airam Tripathi EGFR-AF QATARI >60 Normal >=60 [facility] Comment on above: Performed By: #### C MP ####[facility] Zvbcnjiqbs0647 [place] [phone]. Airam Rtipathi EGFR-NON AF QATARI 53 mL/min/1.73m2 Critically low >=60 [facility] Comment on above: Performed By: #### C MP ####[facility] Gegxvlqhxf1749 [place] [phone]. Airam Tripathi Globulin (S) [Mass/Vol] 2.6 g/dL Normal [facility] Comment on above: Performed By: #### C MP ####[facility] Hzlcudkmjn9275 [place] [address]Dr. Selenaneil Tripathi Glucose [Mass/Vol] 109 mg/dL Critically high 74-106 T [facility] Comment on above: Performed By: #### C MP ####[facility] Qykxuupjlh4434 [place] [address]Dr. Airam Tripathi Potassium [Moles/Vol] 4.2 mmol/L Normal 3.5-5.1 [facility] Comment on above: Performed By: #### C MP ####[facility] Lpwmrrwwez5164 [place] [address]Dr. Selenaneil Deuce Protein [Mass/Vol] 5.4 g/dL Critically low 6.4-8.2 Th [facility] Comment on above: Performed By: #### C MP ####[facility] Rqehtbjydr1225 [place] [address]Dr. Airam Tripathi Sodium [Moles/Vol] 135 mmol/L Critically low 136-145 Th [facility] Comment on above: Performed By: #### C MP ####[facility] Ipipuiezju1190 [place] [phone]. Selenaneil Deuce Urea nitrogen [Mass/Vol] 15.0 mg/dL Normal 7.0-18.0 [facility] Comment on above: Performed By: #### C MP ####[facility] Ozmawfkwka5549 [place], [place] [address]Xt. Airam Tripathi Urea nitrogen/Creatinine [Mass ratio] 14.2 mg/mg Normal [facility] Comment on above: Performed By: #### C MP ####[facility] K[address]brimjr[address] [place], [place] [address]Mp. Airam Tripathi Operative Reporton Operative Report MR#: [id number] [facility] Pt. Name: Mabel Moser Room #: [...] subscapularis. 3. Right shoulder proximal biceps tenotomy. CONSTRUCTION CODE ADMINISTRATOR: Alex Serra M.D. ANESTHESIA: General. INDICATIONS: The [...] Reza M.D. Date Trans: 08/19/2021 11:37 A/carter [id number] cc: Angle Hoy, M.D. [place] [id number] [facility] [place] [address] Normal [facility] POC GLUCOSE LABon 08-19-2021 Glucose [Mass/Vol] 77 mg/dL Normal 70-100 [facility] Comment on above: Performed By: #### 8 [id number] #### [facility] [address] [place], [place] [id number] [place] [address] 04-05-2021 CNPN Telephone (HEMASA) -- MABEL MOSER ([id number]) 1960 F Date Time Provider Department 04/05/21 YEVGENIY FORD During your visit today, we recorded the following information about you: Chana Gallegos [facility] 04/05/2021 7:57 AM Signed Records faxed to the cancer center at [facility]. Patient to follow with Dr. Liu. Release [...] Status:Closed by CHANA LEE on 04/05/21 Normal [facility] OBSOLETEon 01-11-2021 OBSOLETE Refill (HEMASA) -- MABEL MOSER ([id number]) 1960 F Date Time Provider Department 01/11/21 [...] kidney disease) stage 3, GFR 30-59 ml/min ([facility]) [N18.30] Order(s):cyanocobalamin 1,000 mcg/mLINJECT 1 ML [...] Status:Closed by YEVGENIY FORD on 01/12/21 Normal [facility] Vital Signs Date Time Vital Sign Value Performing Clinician Facility 01-14-2025 11:06-0400 Body height 157.48 cm Angle Santana MD Work Phone: [facility] 01-14-2025 11:06-0400 Body mass index (BMI) [Ratio] 35.5 kg/m2 Angle Santana MD Work Phone: [facility] 01-14-2025 11:06-0400 Body weight 88.22 kg Angle Santana MD Work Phone: [facility] 01-14-2025 11:06-0400 Diastolic blood pressure 92 mm[Hg] Angle Santana MD Work Phone: [facility] 01-14-2025 11:06-0400 Heart rate 79 /min Angle Santana MD Work Phone: [facility] 01-14-2025 11:06-0400 Respiratory rate 16 /min Angle Santana MD Work Phone: [facility] 01-14-2025 11:06-0400 SaO2% (BldA) [Mass fraction] 98 % Angle Santana MD Work Phone: [facility] 01-14-2025 11:06-0400 Systolic blood pressure 125 mm[Hg] Angle Santana MD Work Phone: [facility] 10-02-2024 14:44-0400 Body height 157.48 cm [facility] 10-02-2024 14:44-0400 Body mass index (BMI) [Ratio] 42.2 kg/m2 [facility] 10-02-2024 14:44-0400 Body weight 104.77 kg [facility] 10-02-2024 14:44-0400 Diastolic blood pressure 75 mm[Hg] [facility] 10-02-2024 14:44-0400 Heart rate 76 /min [facility] 10-02-2024 14:44-0400 Respiratory rate 16 /min [facility] 10-02-2024 14:44-0400 SaO2% (BldA) [Mass fraction] 100 % [facility] 10-02-2024 14:44-0400 Systolic blood pressure 122 mm[Hg] [facility] 03-26-2024 11:47-0400 Body mass index (BMI) [Ratio] 41.1 kg/m2 [facility] 03-26-2024 11:47-0400 Diastolic blood pressure 77 mm[Hg] [facility] 03-26-2024 11:47-0400 Heart rate 81 /min [facility] 03-26-2024 11:47-0400 Respiratory rate 18 /min [facility] 03-26-2024 11:47-0400 SaO2% (BldA) [Mass fraction] 92 % [facility] 03-26-2024 11:47-0400 Systolic blood pressure 140 mm[Hg] [facility] 03-26-2024 08:52-0400 Body height 157.48 cm [facility] 03-26-2024 08:52-0400 Body temperature 98.1 [degF] [facility] 03-26-2024 08:52-0400 Body weight 102.05 kg [facility] 03-05-2024 13:52-0400 Blood Pressure Location Migel NILL [facility] 03-05-2024 13:52-0400 Diastolic blood pressure 80 mm[Hg] Migel NILL [facility] 03-05-2024 13:52-0400 Heart rate 77 /min Migel NILL [facility] 03-05-2024 13:52-0400 Respiratory rate 16 /min Migel NILL [facility] 03-05-2024 13:52-0400 Systolic blood pressure 116 mm[Hg] Migel NILL [facility] 07-03-2023 12:00-0500 Body temperature 97.9 [degF] MD Angle Santana Work Phone: [facility] 07-03-2023 12:00-0500 Diastolic blood pressure 71 mm[Hg] MD Angle Santana Work Phone: [facility] 07-03-2023 12:00-0500 Heart rate 68 /min MD Angle Santana Work Phone: [facility] 07-03-2023 12:00-0500 Respiratory rate 16 /min MD Angle Santana Work Phone: [facility] 07-03-2023 12:00-0500 SaO2% (BldA) [Mass fraction] 100 % MD Angle Santana Work Phone: [facility] 07-03-2023 12:00-0500 Systolic blood pressure 121 mm[Hg] MD Angle Santana Work Phone: [facility] 07-03-2023 04:49-0500 Body weight 85.8 kg MD Angle Santana Work Phone: [facility] 06-30-2023 14:44-0500 Body height 157.48 cm MD Angle Santana Work Phone: [facility] 04-04-2023 16:20-0400 Body height 158.75 cm Aziz Bakhous Other [employer] Other 04-04-2023 16:20-0400 Body mass index (BMI) [Ratio] 31.46 kg/m2 Aziz Bakhous Other [employer] Other 04-04-2023 16:20-0400 Body temperature 98 [degF] Aziz Bakhous Other [employer] Other 04-04-2023 16:20-0400 Body weight 79.29 kg Aziz Bakhous Other [employer] Other 04-04-2023 16:20-0400 Diastolic blood pressure 81 mm[Hg] Aziz Bakhous Other [employer] Other 04-04-2023 16:20-0400 Respiratory rate 18 /min Aziz Bakhous Other [employer] Other 04-04-2023 16:20-0400 SaO2% (BldA) [Mass fraction] 98 % Aziz Bakhous Other [employer] Other 04-04-2023 16:20-0400 Systolic blood pressure 133 mm[Hg] Aziz Bakhous Other [employer] Other 10-28-2022 22:23-0400 Body temperature 97.4 [degF] MD Angle Santana Work Phone: [facility] 10-28-2022 22:00-0400 Diastolic blood pressure 74 mm[Hg] MD Angle Santana Work Phone: [facility] 10-28-2022 22:00-0400 Heart rate 72 /min MD Angle Santaan Work Phone: [facility] 10-28-2022 22:00-0400 Respiratory rate 20 /min MD Angle Santana Work Phone: [facility] 10-28-2022 22:00-0400 SaO2% (BldA) [Mass fraction] 97 % MD Angle Santana Work Phone: [facility] 10-28-2022 22:00-0400 Systolic blood pressure 169 mm[Hg] MD Angle Santana Work Phone: [facility] 10-28-2022 17:54-0400 Body height 157.48 cm MD Angle Santana Work Phone: [facility] 10-28-2022 17:54-0400 Body weight 83.7 kg MD Angle Santana Work Phone: [facility] 09-27-2022 12:00-0400 Body height 158.75 cm Raeann Tadjohnnie Other [employer] Other 09-27-2022 12:00-0400 Body mass index (BMI) [Ratio] 31.78 kg/m2 [employer] SKUR[employer] Other [employer] Other 09-27-2022 12:00-0400 Body temperature 96.1 [degF] Donnieariel SKURA Other [employer] Other 09-27-2022 12:00-0400 Body weight 80.11 kg [employer] SKUR[employer] Other [employer] Other 09-27-2022 12:00-0400 Diastolic blood pressure 82 mm[Hg] Aziz Bakhous Other [employer] Other 09-27-2022 12:00-0400 Respiratory rate 18 /min Aziz Bakhous Other [employer] Other 09-27-2022 12:00-0400 SaO2% (BldA) [Mass fraction] 99 % Aziz Bakhous Other [employer] Other 09-27-2022 12:00-0400 Systolic blood pressure 140 mm[Hg] Aziz Bakhous Other [employer] Other 04-12-2022 14:00-0400 Body height 158.75 cm Aziz Bakhous Other [employer] Other 04-12-2022 14:00-0400 Body mass index (BMI) [Ratio] 30.13 kg/m2 Aziz Bakhous Other [employer] Other 04-12-2022 14:00-0400 Body temperature 97.6 [degF] Aziz Bakhous Other [employer] Other 04-12-2022 14:00-0400 Body weight 75.93 kg Aziz Bakhous Other [employer] Other 04-12-2022 14:00-0400 Diastolic blood pressure 95 mm[Hg] Aziz Bakhous Other [employer] Other 04-12-2022 14:00-0400 Respiratory rate 18 /min Aziz Bakhous Other [employer] Other 04-12-2022 14:00-0400 SaO2% (BldA) [Mass fraction] 98 % Raeann Kirkpatrick Other [employer] Other 04-12-2022 14:00-0400 Systolic blood pressure 175 mm[Hg] Raeann Kirkpatrick Other [employer] Other 06-16-2021 16:20-0500 Body height 158.75 cm [place] Other [employer] Other 06-16-2021 16:20-0500 Body mass index (BMI) [Ratio] 30.88 kg/m2 [place] Other [employer] Other 06-16-2021 16:20-0500 Body temperature 96.4 [degF] [place] Other [employer] Other 06-16-2021 16:20-0500 Body weight 77.84 kg [place] Other [employer] Other 06-16-2021 16:20-0500 Diastolic blood pressure 88 mm[Hg] [place] Other [employer] Other 06-16-2021 16:20-0500 Respiratory rate 18 /min [place] Other [employer] Other 06-16-2021 16:20-0500 SaO2% (BldA) [Mass fraction] 99 % [place] Other [employer] Other 06-16-2021 16:20-0500 Systolic blood pressure 137 mm[Hg] [place] Other [facility] [employer] Other Encounters Encounter Date Encounter Type Care Provider Facility Start: 01-14-2025 End: 01-14-2025 ambulatory Angle Santana MD Work Phone: [facility] Work Phone: Start: 01-14-2025 End: 01-14-2025 Patient encounter procedure Raeann Kirkpatrick MD -[facility] [place] Work Phone: Start: 01-02-2025 Non-patient / Non-visit Raeann Kirkpatrick MD -[facility] [employer] Work Phone: Start: 12-09-2024 End: 12-09-2024 ambulatory Riki Smith MD Facility:[facility] Start: 10-11-2024 End: 10-11-2024 ambulatory [facility] Start: 10-07-2024 End: 10-07-2024 ambulatory Riki Smith MD Facility:[facility] Start: 10-02-2024 End: 10-02-2024 ambulatory [facility] Work Phone: Start: 10-02-2024 End: 10-02-2024 Patient encounter procedure [facility] [place] Work Phone: Start: 09-09-2024 End: 09-09-2024 ambulatory [facility] Start: 09-09-2024 End: 09-09-2024 ambulatory [facility] Start: 08-08-2024 End: 08-08-2024 ambulatory [facility] Start: 07-18-2024 Non-patient / Non-visit [facility] [employer] Work Phone: Start: 05-31-2024 ambulatory [facility] Start: 04-29-2024 ambulatory [facility] Start: 04-17-2024 ambulatory [facility] Start: 03-27-2024 End: 03-27-2024 ambulatory [facility] Start: 03-26-2024 End: 03-26-2024 ambulatory [facility] Work Phone: Start: 03-26-2024 End: 03-26-2024 Patient encounter procedure [facility] [place] Work Phone: Start: 03-05-2024 End: 03-05-2024 ambulatory Migel MCKINNEY Facility:[facility] Start: 03-05-2024 End: 03-05-2024 Patient encounter procedure Migel Trujillo BRANDYNTad [facility] [place] Start: 01-22-2024 End: 01-30-2024 Evaluation and management of inpatient CROWKANDICE JEISON-ESTRADA [facility] Start: 12-21-2023 End: 12-21-2023 ambulatory [facility] Start: 10-13-2023 ambulatory [place] Start: 09-30-2023 End: 10-01-2023 Evaluation and management of inpatient MERE [facility]: [facility]23 End: 07-11-2023 ambulatory Raeann Kirkpatrick Other [facility] [employer] Other Start: 07-11-2023 Telephone encounter Raeann Kirkpatrick [facility] Ne[facility] Start: 06-29-2023 End: 07-03-2023 Evaluation and management of inpatient Jim Randhawa Facility:[facility] Start: 06-29-2023 End: 07-03-2023 Evaluation and management of inpatient MD Angle Santana Work Phone: [facility] [place] [facility] Work Phone: Start: 04-04-2023 End: 04-04-2023 ambulatory Aziz Bakhous Other [employer] Other Start: 04-04-2023 Office outpatient visit 25 minutes Aziz Bakhous [facility] Start: 04-03-2023 End: 04-03-2023 ambulatory Aziz Bakhous Other [employer] Other Start: 04-03-2023 Telephone encounter Aziz Bakhous [facility] Start: 12-12-2022 End: 12-12-2022 ambulatory Aziz Bakhous Other [employer] Other Start: 12-12-2022 Telephone encounter Aziz Bakhous [facility] Start: 12-08-2022 End: 12-08-2022 ambulatory Aziz Bakhous Other [employer] Other Start: 12-08-2022 Telephone encounter Aziz Bakhous [facility] Start: 11-22-2022 End: 11-22-[address] ANGLE SANTANA . Facility:[facility] Start: 11-22-2022 End: 11-22-2022 ambulatory NARENDRANATH LAKSHMIPATHY . Facility:[facility] Start: 11-16-2022 End: 11-16-[address] ANGLE SANTANA . Facility:[facility] Start: 11-04-2022 End: 11-05-2022 ambulatory NARENDRANATH LAKSHMIPATHY . Facility:[facility] Start: 11-03-2022 End: 11-03-[address] ANGLE SANTANA . Facility:[facility] Start: 10-31-2022 ambulatory SANTOS ROUSSEAU . Facili ty:[facility]1 Start: 10-28-2022 End: 10-29-2022 Emergency department patient visit Favian Helm Facility:[facility] Start: 10-28-2022 End: 10-28-2022 Emergency department patient visit MD Angle Santana Work Phone: [facility]gency [facility] Work Phone: Start: 10-27-2022 [...] 09-27-2022 End: 09-27-2022 ambulatory Raeann Kirkpatrick Other [employer] Other Start: 09-27-2022 Office outpatient visit 25 minutes Raeann Kirkpatrick [facility] [place] Start: 09-21-2022 End: 09-22-[address] ANGLE SANTANA . Facility:[facility] Start: 09-20-2022 End: 09-21-2022 ambulatory SADIE DEL CASTILLO . Facility:[facility] Start: 09-19-2022 End: 09-20-[address] AGNLE SANTANA . Facility:[facility] Start: 09-19-2022 End: 09-20-2022 ambulatory RAEANN KIRKPATRICK Facility:[facility] Start: 08-24-2022 End: 09-12-[address] ANGLE SANTANA . Facility:[facility] Start: 08-23-2022 End: 08-23-2022 ambulatory Sue Leiva Other [employer] Other Start: 08-23-2022 Office outpatient ne w [...] 04-12-2022 End: 04-12-2022 ambulatory Raeann Kirkpatrick Other [employer] Other Start: 04-12-2022 Office outpatient visit 25 minutes Raeann Kirkpatrick [facility] [place] Start: 04-06-[address] [...] 01-10-2022 End: 01-11-2022 ambulatory Robert Johnston Facility:[facility] Start: 01-06-2022 End: 01-07-[address] ANGLE SANTANA . Facility:[facility] Start: 12-30-2021 End: 01-19-[address] ANGLE SANTANA . Facility:[facility] Start: 12-23-2021 End: 12-24-2021 ambulatory NNAMDI VELIZIS . Facility:[facility] Start: 12-07-2021 End: 12-22-[address] ANGLE SANTANA . Facility:[facility] Start: 12-07-2021 End: 12-07-[address] ANGLE SANTANA . Facility: Start: 08-19-2021 End: 08-20-2021 ambulatory CARLOS Deepak LIBIA Facility:[facility] Start: 06-16-2021 End: 06-16-2021 ambulatory [place] Other [employer] Other Start: 06-16-2021 Office outpatient visit 25 minutes [place] [facility] Neph[facility] Start: 01-14-2019 End: 01-14-2019 Patient encounter procedure [facility] Start: 12-03-2018 End: 12-03-2018 Patient encounter procedure [facility] Procedures Date Procedure Procedure Detail Performing Clinician Start: 10-28-2022 CT of head without contrast MD Angle Santana Work Phone: Start: 10-28-2022 Plain chest X-ray MD Romero Work Phone: Start: 09-24-2022 Insertion of implant able venous access port Migel MCKINNEY Start: 01-14-2019 DISCHARGE PATIENT NIRMAL LEWIS Start: 01-14-2019 DIET NPO, NOW NIRMAL Calderon Start: 01-14-2019 FULL CODE NIRMAL Start: 01-14-2019 INITIATE OXYGEN THER APY PROTOCOL NIRMAL Start: 01-14-2019 NOTIFY PHYSICIAN (SPECIFY) NIRMAL Start: 01-14-2019 NURSING COMMUNICATION Nikita THOMPSON Start: 01-14-2019 VERIFY INFORMED CONSENT Start: 01-14-2019 VITAL SIGNS Start: 12-03-2018 DISCHARGE PATIENT NIRMAL Start: 12-03-2018 DIET NPO, NOW NIRMAL Calderon Start: 12-03-2018 FULL CODE NIRMAL Start: 12-03-2018 INITIATE OXYGEN THER APY PROTOCOL NIRMAL Start: 12-03-2018 NOTIFY PHYSICIAN (SPECIFY) NIRMAL Start: 12-03-2018 NURSING COMMUNICATION W DONNA Start: 12-03-2018 VERIFY INFORMED CONSENT Start: 12-03-2018 VITAL SIGNS NIRMAL Start: 06-26-2016 [...] Date Care Activity Detail Author Start: 07-03-2023 [facility] Start: 06-29-2023 Hospital admission [facility] Start: 06-29-2023 Referral to experimental box tester [facility] Blood chemistry [facility] Patient Education [facility] Work Phone: Patient referral [facility] Work Phone: Renal function 2000 panel - Serum or Plasma [facility] Renal function 1999 panel - Serum or Plasma [facility] Renal function 1999 panel - Serum or Plasma [facility] Immunizations Immunization Date Immunization Notes Care Provider Fa radha 03-11-2023 influenza virus vaccine, unspecified formulation Migel [facility]UMADAL [facility] 04-07-2022 SARS-CoV-2 (COVID-19 ) [id number] Migel [facility]UMADAL [facility] 09-24-2020 SARS-CoV-2 (COVID-19 ) mRNA-1273 vaccine Migel [facility] Comment on above: Result Comment: 2023: [id number] 08-27-2020 SARS-CoV-2 (COVID-19 ) mRNA-1273 vaccine Migel [facility] 05-18-2011 pneumococcal conjuga te vaccine, 13 valent Migel Tolerx [facility] NEGATED: Highlighted row has not occurred!09-16-2020 influenza virus vaccine, unspecified formulation Migel [employer] [facility] Payers Date Payer Category Payer Medicaid 2024 Medicare 2023 Medicare [id number] 2022 Self-pay [id number] 2017 Medicare [id number] 2017 Unknown [id number] 1962 Unknown [id number] 2.16.8 40.1.505211.3.579.2.173 1962 Unknown [id number] 2.16.8 40.1.619403.3.579.2.173 1962 Unknown [id number] 2.16.8 40.1.386303.3.579.2.647 1962 Unknown [id number] 2.16.8 40.1.613828.3.579.2.647 1962 Unknown [id number] 2.16.84 0.1.685779.3.579.2.593 1962 Unknown [id number] 2.16.84 0.1.592531.3.579.2.593 1962 Unknown [id number] 2.16.84 0.1.832419.3.579.2.593 1962 Unknown [id number] 2.16.84 0.1.377596.3.579.2.593 1962 Unknown [id number] 2.16.84 0.1.027987.3.579.2.593 1962 Unknown [id number] 2.16.84 0.1.922674.3.579.2.593 1962 Unknown [id number] 2.16.84 0.1.370607.3.579.2.593 1962 Unknown [id number] 2.16.84 0.1.106903.3.579.2.593 1962 Unknown [id number] 2.16.84 0.1.681667.3.579.2.593 1962 Unknown [id number] 2.16.84 0.1.792719.3.579.2.593 1962 Unknown [id number] 2.16.84 0.1.703328.3.579.2.593 1962 Unknown [id number] 2.16.84 0.1.697809.3.579.2.593 1962 Unknown [id number] 2.16.84 0.1.748833.3.579.2.593 1962 Unknown [id number] 2.16.84 0.1.493424.3.579.2.593 1962 Unknown [id number] 2.16.84 0.1.236839.3.579.2.593 1962 Unknown [id number] 2.16.84 0.1.073569.3.579.2.593 1962 Unknown [id number] 2.16.84 0.1.288154.3.579.2.593 1962 Unknown [id number] 2.16.84 0.1.173761.3.579.2.593 1962 Unknown [id number] 2.16.84 0.1.670151.3.579.2.593 1962 Unknown [id number] 2.16.84 0.1.719197.3.579.2.593 1962 Unknown [id number] 2.16.84 0.1.398290.3.579.2.593 1962 Unknown [id number] 2.16.84 0.1.482553.3.579.2.593 1962 Unknown [id number] 2.16.84 0.1.724921.3.579.2.593 1962 Unknown [id number] 2.16.84 0.1.005551.3.579.2.593 1962 Unknown [id number] 2.16.84 0.1.944930.3.579.2.593 1962 Unknown [id number] 2.16.84 0.1.776515.3.579.2.593 1962 Unknown [id number] 2.16.84 0.1.499958.3.579.2.593 1962 Unknown [id number] 2.16.84 0.1.248806.3.579.2.593 1962 Unknown [id number] 2.16.84 0.1.978673.3.579.2.593 1962 Unknown [id number] 2.16.84 0.1.656015.3.579.2.593 1962 Unknown [id number] 2.16.84 0.1.927766.3.579.2.593 1962 Unknown [id number] 2.16.84 0.1.730276.3.579.2.593 1962 Unknown [id number] 2.16.84 0.1.063123.3.579.2.593 1962 Unknown [id number] 2.16.84 0.1.773630.3.579.2.593 1962 Unknown [id number] 2.16.84 0.1.606043.3.579.2.593 1962 Unknown [id number] 2.16.84 0.1.313174.3.579.2.593 1962 Unknown [id number] 2.16.84 0.1.465860.3.579.2.593 1962 Unknown [id number] 2.16.84 0.1.991615.3.579.2.593 1962 Unknown [id number] 2.16.84 0.1.454774.3.579.2.593 1962 Unknown [id number] 2.16.84 0.1.014660.3.579.2.593 1962 Unknown [id number] 2.16.84 0.1.359244.3.579.2.593 1962 Unknown [id number] 2.16.84 0.1.738866.3.579.2.593 1962 Unknown [id number] 2.16.84 0.1.884467.3.579.2.593 1962 Unknown [id number] 2.16.84 0.1.698333.3.579.2.593 1962 Unknown [id number] 2.16.84 0.1.075591.3.579.2.593 1962 Unknown [id number] 2.16.84 0.1.091407.3.579.2.593 1962 Unknown [id number] 2.16.8 40.1.603465.3.579.2.1286 1962 Unknown [id number] 2.16.8 40.1.561454.3.579.2.727 1962 Unknown [id number] 2.16. 840.1.226664.3.579.2.175 1962 Unknown [id number] 2.16. 840.1.762575.3.579.2.175 1962 Unknown [id number] 2.16.8 40.1.606506.3.579.2.1286 1962 Unknown [id number] 2.16.8 40.1.211310.3.579.2.1286 1962 Unknown [id number] 2.16.8 40.1.159020.3.579.2.1286 1962 Unknown [id number] 2.16.8 40.1.472442.3.579.2.1286 1962 Unknown [id number] 2.16. 840.1.365252.3.579.2.196 1962 Unknown [id number] 2.16. 840.1.868810.3.579.2.196 1959 Medicaid [id number] Unknown [id number] 2.1 6.840.1.811315.19 Unknown [place] /BS [id number] Unknown [id number] 2.16.8 40.1.118386.3.579.2.531 Unknown [id number] 2.16.8 40.1.809384.3.579.2.531 Social History Date Type Detail Facility Unknown if ever smoked [employer] Other Sex Assigned At [facility] Start: 10-28-2022 End: 03-26-2024 Tobacco smoking status NHIS Never smoked tobacco (finding) [facility] Start: 1960 Sex Assigned At Female F [facility] Start: 10-02-2024 Sex Female (finding) [facility] Goals Date Patient Goal Desired Activity /State Functional Status Date Assessment Result Facility 03-05-2024 Functional Status N/A [facility] 07-03-2023 Functional status Patient at Baseline [facility] Work Phone: Mental Status Date Assessment Result Facility 07-03-2023 Cognitive function Cognitive Sta tus Patient at Baseline [facility] Work Phone: Clinical Notes 06-16-2021 to 10-11-2024 Note Date & Type Note Facility 10-11-2024 Note [place] [facility] Subjective Mabel Moser is a 64 y.o. year old female patient being seen for 6 month follow up . Patient states she saw the Lorry Weigher last week and he took her off bumex, and replaced it with Torsemide 50 2 x per day, and Calcitriol 0.5 mcg 1 x per day. Patient states she is very tired not sleeping well due to back pain and fibromyalgia. Patient state she has a large amount of leg swelling, Patient has dyspnea with exertion. Patient denies chest pain, occasional palpitations. Patient Active Problem List Diagnosis Abnormal weight loss Acute sinusitis Amnesia Anxiety Other specified anxiety disorders Mitral valve regurgitation Pulmonic valve regurgitation Aortic valve regurgitation Arthritis of right knee Benign essential hypertension Bilateral hearing loss Chronic obstructive pulmonary disease (CMS/HCC) Chronic kidney disease Closed fracture of trochanter of femur (CMS/HCC) Clostridium difficile colitis Coronary arteriosclerosis Diffuse thyroid 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 thyrotoxicosis Fluid overload Dehydration Cortical age-related cataract of left eye COVID-19 Displacement of lumbar intervertebral disc without myelopathy Edema of lower extremity Edema Orthopnea Dyspnea Endogenous obesity Neuropathy ACC/AHA stage C heart failure with preserved ejection fraction (CMS/HCC) H/O gastric bypass Gouty arthropathy Gastroesophageal reflux disease Full thickness rotator cuff tear Fibromyalgia Low back pain Hip pain Hyperparathyroidism due to renal insufficiency Hypocalcemia Hypertension Hypoglycemia Hyponatremia Hypothyroidism Impingement syndrome of shoulder region Insomnia Anemia due to vitamin B12 deficiency Pulmonary hypertension (CMS/HCC) Other fatigue Osteoarthritis of knee Morbid (severe) obesity due to excess calories (CMS/HCC) Left atrial enlargement Lumbosacral radiculopathy Lumbosacral spondylosis without myelopathy Intractable migraine without status migrainosus Migraine Rheumatic tricuspid valve regurgitation Vitamin D deficiency Tympanic membrane perforation, right Transient ischemic attack Thoracic neuritis Tear of right rotator cuff Swallowing problem Sunburn of second degree Status post tympanoplasty Sprain of shoulder Seizure disorder (CMS/HCC) Polyneuropathy associated with critical illness Polyneuropathy Arthritis Class 3 obesity Lumbar paraspinal muscle spasm Lateral femoral cutaneous neuropathy, left Internal derangement of right shoulder History of total right knee replacement Hemiparesis, left (CMS/HCC) Hemiparesis due to old stroke (CMS/HCC) Difficulty walking Depressive disorder Constipation Abnormal blood chemistry 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 (CMS/HCC) Pre-operative cardiovascular examination Acute on chronic systolic CHF (congestive heart failure) (CMS/HCC) History of stroke Hyperkalemia Hypomagnesemia Metabolic acidosis LEEANN (acute kidney injury) Peripheral vascular disease Acute heart failure (CMS/HCC) Polypharmacy Cerebral artery occlusion with cerebral infarction (CMS/HCC) Chronic congestive heart failure (CMS/HCC) Fall at home, initial encounter Irritable bowel syndrome Restless legs Other displaced dens fracture, sequela Cervical stenosis of spine Compression fracture of C2 vertebra with delayed healing History of Clostridium difficile colitis History of DVT of lower extremity Lymphedema MDD (major depressive disorder), recurrent episode, moderate (CMS/HCC) Mild neurocognitive disorder Osteoporosis Vascular insufficiency Poor venous access S/P cervical spinal fusion Simple goiter Syncope Vertebral artery dissection Abdominal wall skin ulcer (CMS/HCC) Hyperparathyroidism Primary localized osteoarthrosis of shoulder region Tear of left rotator cuff Family History Problem Relation Name Age of Onset Stroke Mother Heart failure Father Social History Tobacco Use Smoking status: Never Smokeless tobacco: Never Substance Use Topics Alcohol use: Not Currently Drug use: Not Currently HPI Mabel is seen in follow-up. She is a 64-year-old woman with prior history of obesity status post bariatric surgery in 2000. In the past she was admitted to [facility] in 2019 with fluid overload and [...] severely elevated right-sided pressures and her blood (more content not included)... [facility] 09-09-2024 Note Orthopedic Surgery Visit Description: New patient Subjective Chief complaint: Chronic left shoulder pain 09/09/24 Mabel Moser is a 64 y.o. year [...] Anxiety Arthritis Asthma CHF (congestive heart failure) ([facility]) Coronary artery disease Depression Gastroenteritis Heart valve disease Hypertension Kidney failure Lumbar spondylolysis Stroke ([facility]) Objective General: BMI 41.34 General: No [...] satisfaction. Pepito Almeida MD Orthopedic Surgery, PGY-5 [facility] Pager: [phone] 09/09/24 This note was created with the [...] be an additional personal documentation from me. [facility] 03-27-2024 Note [place] [facility] Subjective Mabel Moser is a 64 y.o. year old female patient being seen for 3 mo follow up HFpEF, hypertension, and mild pulmonary hypertension. She was admitted last month to [facility] for CHF and fluid overload. She was [...] Hypomagnesemia Metabolic acidosis LEEANN (acute kidney injury) (CMS/HCC) Cardiorenal disease Acute heart failure (CMS/HCC) Polypharmacy Cerebral artery occlusion with cerebral infarction (CMS/HCC) Chronic CHF (congestive heart failure) (CMS/HCC) Fall at home, initial encounter Irritable bowel syndrome Restless leg syndrome Traumatic closed fracture of C2 vertebra with minimal displacement, initial encounter ([facility]/HCC) Cervical stenosis of spine Compression fracture of C2 vertebra with delayed healing History of Clostridium difficile colitis History of DVT of lower extremity Lymphedema MDD (major depressive disorder), recurrent episode, moderate (CMS/HCC) Mild neurocognitive disorder Osteoporosis Peripheral venous insufficiency Poor venous access S/P cervical spinal fusion Simple goiter Syncope Vertebral artery dissection ([facility]/HCC) Family History Family history unknown: Yes Social History Tobacco Use Smoking status: Never Smokeless tobacco: Never Substance Use Topics Alcohol use: Not Currently Drug use: Not Currently HPI Mabel is seen in follow-up. She is a 64-year-old woman with prior history of obesity status post bariatric surgery in 2000. In the past she was admitted to [facility] in 2019 with fluid overload and [...] severely elevated r (more content not included)... [facility] 03-05-2024 Note General Surgery Offi ce/Clinic [...] tab(s), Oral, BID butorphanol 10 mg/mL Nasal [place], 1 spray(s), Nasal, Daily, PRN cyanocobalamin 1000 [...] BID Fioricet or (more content not included)... [facility] Comment on above: Result Comment: Elec tronically Signed By: FAYE ASCENCIO, Migel Cruz\Date and Time Signed: 03/05/24 14:27 EDT 12-21-2023 Note [place] [facility] Subjective Mabel Moser is a 63 [...] side as late effect of cerebral infarction ([facility]/HCC) Pre-operative cardiovascular examination Acute on chronic systolic CHF (congestive heart failure) (CMS/HCC) History of CVA in adulthood Hyperkalemia Hypomagnesemia Metabolic acidosis LEEANN (acute kidney injury) ([facility]/HCC) Cardiorenal disease Acute heart failure ([facility]) Polypharmacy Cerebral artery occlusion with cerebral infarction ([facility]/HCC) Chronic CHF (congestive heart failure) ([facility]) Fall at home, initial encounter Irritable bowel syndrome Restless leg syndrome Traumatic closed fracture of C2 vertebra with minimal displacement, initial encounter ([facility]) Family History Family history unknown: Yes Social History Tobacco Use Smoking status: Never Smokeless tobacco: Never Substance Use Topics Alcohol use: Not Currently Drug use: Not Currently HPI Mabel is seen in follow-up. She is a 63-year-old woman with prior history of obesity status post bariatric surgery in 2000. In the past she was admitted to [facility] in 2019 with fluid overload and [...] recommended to t (more content not included)... [facility] 07-03-2023 Progress note Note Date/Time July 03, 2023 12:18pm [facility] [address] [place] [address] Nephrology Progress Note Signed Patient: Mabel Moser MR#: [id number] : 1960 Acct:[id number] Age/Sex: 63 / F Adm Date: 4 Loc: Room: [address] [place] [address] Type: ADM IN Attending Dr: Jim Randhawa [...] Total 1175 / 1175 1620 / 1620 2050 / 0 500 / 500 Balance 1175 / 1175 [...] Mg/4 Ml Vial) 1 mg IV-PUSH BID@0800,1600 [facility] Stop: 06/29/24 07:59 Last Admin: 07/03/23 08:14 Dose: 1 mg Calcium Acetate (Calcium Acetate 667 Mg Capsule) 667 mg PO BID.WITH.MEALS [facility] Stop: 06/29/24 07:59 Last Admin: 07/03/23 08:13 Dose: 667 mg Duloxetine HCl (Duloxetine 60 Mg Capsule.) 120 mg PO DAILY [facility] Stop: 06/29/24 08:59 Last Admin: 07/03/23 08:13 Dose: 120 mg Fentanyl (Fentanyl Patch 100 Mcg/Hour Patch.Td72) 100 mcg TRANSDERML Q72H [facility]; Protocol Last Admin: 07/03/23 08:12 Dose: 100 mcg Ferrous Sulfate (Ferrous Sulfate 324 Mg Tablet.) 324 mg PO DAILY [facility] Stop: 06/29/24 08:59 Last Admin: 07/03/23 08:13 Dose: 324 mg Gabapentin (Gabapentin 100 Mg Capsule) 100 mg PO TID [facility] Stop: 06/29/24 08:59 Last Admin: 07/03/23 08:13 Dose: 100 mg Guaifenesin/Dextromethorphan (Guaif/Dextromethorphan Syrup 10 Ml Udc) 10 ml PO Q8H PRN PRN Reason: Cough Stop: 06/28/24 21:34 Heparin Sodium (Porcine) (Heparin 5,000 Unit/Ml Vial) 5,000 unit SUBCUT Q12HR [facility] Stop: 06/29/24 08:59 Last Admin: 07/03/23 08:14 Dose: 5,000 unit Levothyroxine Sodium (Levothyroxine 100 Mcg Tablet) 100 mcg PO DAILY@0630 [facility] Stop: 06/29/24 06:29 Last Admin: 07/03/23 06:23 Dose: 100 mcg Linaclotide (Linaclotide 290 Mcg Capsule) 290 mcg PO Q48HR [facility] Stop: 06/29/24 08:59 Last Admin: 07/02/23 08:59 Dose: 290 mcg Liothyronine Sodium (Liothyronine 25 Mcg Tablet) 25 mcg PO DAILY@0630 [facility] Stop: 06/29/24 10:59 Last Admin: 07/03/23 06:23 Dose: 25 mcg Loratadine (Loratadine 10 Mg Tablet) 10 mg PO DAILY PRN PRN Reason: Allergy Symptoms Stop: 06/29/24 06:54 Melatonin (Melatonin 5 Mg Tablet) 5 mg PO QHS PRN PRN Reason: Insomnia Stop: 06/28/24 21:34 Metoprolol Tartrate (Metoprolol Tartrate 25 Mg Tablet) 25 mg PO BID [facility] Stop: 06/29/24 20:59 Last Admin: 07/03/23 08:14 Dose: 25 mg Ondansetron HCl (Ondansetron 4 Mg/2 Ml Vial) 4 mg IV-PUSH Q8H PRN PRN Reason: Nausea And Vomiting Stop: 06/28/24 21:34 Oxycodone/Acetaminophen (Oxycodone/Acetaminophen 5-325 Mg Tablet) 2 tab PO Q6H PRN PRN Reason: Pain Last Admin: 07/03/23 11:25 Dose: 2 tab Pantoprazole Sodium (Pantoprazole 40 Mg Tablet.Dr) 40 mg PO BID [facility] Stop: 06/29/24 08:59 Last Admin: 07/03/23 08:13 Dose: 40 mg Primidone (Primidone 50 Mg Tablet) 100 mg PO HS [facility] Stop: 06/29/24 21:59 Last Admin: 07/02/23 21:00 Dose: 100 mg Sevelamer Carbonate (Sevelamer Carbonate 800 Mg Tablet) 800 mg PO TID.WITH.MEALS [facility] Stop: 06/29/24 11:59 Last Admin: 07/03/23 [...] to baseline Documented By: Raeann Kirkpatrick MD 07/03/231212 Signed By: <Electronically signed by Raeann Kirkpatrick MD> 07/03/23 1218 [facility] Work Phone: 1(839) 485-415801-07-2024 Progress note Author Jim Randhawa [facility] July 02, 2023 11:26am Note Date/Time July 02, 2023 11 :26am [facility] [address] [place] [address] Hospitalist Progress Note Signed Patient: Mabel Moser MR#: [id number] : 1960 Acct:[id number] Age/Sex: 63 / F Adm Date: 4 Loc: Room: [address] [place] [address] Type: ADM IN Attending Dr: Jim Randhawa [...] By: <Electronically signed by Jim Randhawa, DO> 07/02/23 1126 [facility] Work Phone: 1(926) 217-302601-07-2024 Progress note Author [place] [facility] July 02, 2023 10:42am Note Date/Time July 02, 2023 10 :42am [facility] [address] [place] [address] Nephrology Progress Note Signed Patient: Mabel Moser MR#: [id number] : 1960 Acct:[id number] Age/Sex: 63 / F Adm Date: 4 Loc: Room: [address] [place] [address] Type: ADM IN Attending Dr: Jim Randhawa [...] Mg/4 Ml Vial) 1 mg IV-PUSH BID@0800,1600 [facility] Stop: 06/29/24 07:59 Last Admin: 07/02/23 08:55 Dose: 1 mg Calcium Acetate (Calcium Acetate 667 Mg Capsule) 667 mg PO BID.WITH.MEALS [facility] [facility] Stop: 06/29/24 07:59 Last Admin: 07/02/23 08:55 Dose: 667 mg Duloxetine HCl (Duloxetine 60 Mg Capsule.) 120 mg PO DAILY [facility] Stop: 06/29/24 08:59 Last Admin: 07/02/23 08:59 Dose: 120 mg Fentanyl (Fentanyl Patch 100 Mcg/Hour Patch.Td72) 100 mcg TRANSDERML Q72H [facility]; Protocol Last Admin: 06/30/23 09:31 Dose: 100 mcg Ferrous Sulfate (Ferrous Sulfate 324 Mg Tablet.) 324 mg PO DAILY [facility] Stop: 06/29/24 08:59 Last Admin: 07/02/23 08:55 Dose: 324 mg Gabapentin (Gabapentin 100 Mg Capsule) 100 mg PO TID [facility] Stop: 06/29/24 08:59 Last Admin: 07/02/23 08:55 Dose: 100 mg Guaifenesin/Dextromethorphan (Guaif/Dextromethorphan Syrup 10 Ml Udc) 10 ml PO Q8H PRN PRN Reason: Cough Stop: 06/28/24 21:34 Heparin Sodium (Porcine) (Heparin 5,000 Unit/Ml Vial) 5,000 unit SUBCUT Q12HR [facility] Stop: 06/29/24 08:59 Last Admin: 07/02/23 08:55 Dose: 5,000 unit Levothyroxine Sodium (Levothyroxine 100 Mcg Tablet) 100 mcg PO DAILY@0630 [facility] Stop: 06/29/24 06:29 Last Admin: 07/02/23 05:48 Dose: 100 mcg Linaclotide (Linaclotide 290 Mcg Capsule) 290 mcg PO Q48HR [facility] Stop: 06/29/24 08:59 Last Admin: 07/02/23 08:59 Dose: 290 mcg Liothyronine Sodium (Liothyronine 25 Mcg Tablet) 25 mcg PO DAILY@0630 [facility] Stop: 06/29/24 10:59 Last Admin: 07/02/23 05:48 Dose: 25 mcg Loratadine (Loratadine 10 Mg Tablet) 10 mg PO DAILY PRN PRN Reason: Allergy Symptoms Stop: 06/29/24 06:54 Melatonin (Melatonin 5 Mg Tablet) 5 mg PO QHS PRN PRN Reason: Insomnia Stop: 06/28/24 21:34 Metoprolol Tartrate (Metoprolol Tartrate 25 Mg Tablet) 25 mg PO BID [facility] Stop: 06/29/24 20:59 Last Admin: 07/02/23 08:55 Dose: 25 mg Ondansetron HCl (Ondansetron 4 Mg/2 Ml Vial) 4 mg IV-PUSH Q8H PRN PRN Reason: Nausea And Vomiting Stop: 06/28/24 21:34 Oxycodone/Acetaminophen (Oxycodone/Acetaminophen 5-325 Mg Tablet) 2 tab PO Q6H PRN PRN Reason: Pain Last Admin: 07/02/23 02:00 Dose: 2 tab Pantoprazole Sodium (Pantoprazole 40 Mg Tablet.Dr) 40 mg PO BID [facility] Stop: 06/29/24 08:59 Last Admin: 07/02/23 08:55 Dose: 40 mg Primidone (Primidone 50 Mg Tablet) 100 mg PO HS [facility] Stop: 06/29/24 21:59 Last Admin: 07/01/23 21:21 Dose: 100 mg Sevelamer Carbonate (Sevelamer Carbonate 800 Mg Tablet) 800 mg PO TID.WITH.MEALS [facility] Stop: 06/29/24 11:59 Last Admin: 07/02/23 [...] signed by MD Los Grissom> 07/02/23 1042 [facility] Work Phone: 1(106) 627-169701-06-2024 Progress note Author Jmi Randhawa [facility] July 01, 2023 1:52pm Note Date/Time July 01, 2023 1: 37pm [facility] [address] [place] [address] Hospitalist Progress Note Signed Patient: Mabel Moser MR#: [id number] : 1960 Acct:[id number] Age/Sex: 63 / F Adm Date: 4 Loc: Room: [address] [place] [address] Type: ADM IN Attending Dr: Jim Randhawa [...] signed by Jim Randhawa DO> 07/01/23 1352 [facility] Work Phone: 1(523) 708-520801-06-2024 Progress note Author Los Grissom [facility] July 01, 2023 10:16am Note Date/Time July 01, 2023 10 :16am [facility] [address] [place] [address] Nephrology Progress Note Signed Patient: Mabel Moser MR#: [id number] : 1960 Acct:[id number] Age/Sex: 63 / F Adm Date: 4 Loc: Room: [address] [place] [address] Type: ADM IN Attending Dr: Jim Randhawa [...] Mg/4 Ml Vial) 1 mg IV-PUSH BID@0800,1600 [facility] Stop: 06/29/24 07:59 Last Admin: 07/01/23 08:21 Dose: 1 mg Calcium Acetate (Calcium Acetate 667 Mg Capsule) 667 mg PO BID.WITH.MEALS [facility] Stop: 06/29/24 07:59 Last Admin: 07/01/23 08:20 Dose: 667 mg Duloxetine HCl (Duloxetine 60 Mg Capsule.) 120 mg PO DAILY [facility] Stop: 06/29/24 08:59 Last Admin: 07/01/23 08:20 Dose: 120 mg Fentanyl (Fentanyl Patch 100 Mcg/Hour Patch.Td72) 100 mcg TRANSDERML Q72H [facility]; Protocol Last Admin: 06/30/23 09:31 Dose: 100 mcg Ferrous Sulfate (Ferrous Sulfate 324 Mg Tablet.) 324 mg PO DAILY [facility] Stop: 06/29/24 08:59 Last Admin: 07/01/23 08:20 Dose: 324 mg Gabapentin (Gabapentin 100 Mg Capsule) 100 mg PO TID [facility] Stop: 06/29/24 08:59 Last Admin: 07/01/23 08:20 Dose: 100 mg Guaifenesin/Dextromethorphan (Guaif/Dextromethorphan Syrup 10 Ml Udc) 10 ml PO Q8H PRN PRN Reason: Cough Stop: 06/28/24 21:34 Heparin Sodium (Porcine) (Heparin 5,000 Unit/Ml Vial) 5,000 unit SUBCUT Q12HR [facility] Stop: 06/29/24 08:59 Last Admin: 07/01/23 08:21 Dose: 5,000 unit Levothyroxine Sodium (Levothyroxine 100 Mcg Tablet) 100 mcg PO DAILY@0630 [facility] Stop: 06/29/24 06:29 Last Admin: 07/01/23 05:46 Dose: 100 mcg Linaclotide (Linaclotide 290 Mcg Capsule) 290 mcg PO Q48HR [facility] Stop: 06/29/24 08:59 Last Admin: 06/30/23 09:33 Dose: 290 mcg Liothyronine Sodium (Liothyronine 25 Mcg Tablet) 25 mcg PO DAILY@0630 [facility] Stop: 06/29/24 10:59 Last Admin: 07/01/23 05:46 Dose: 25 mcg Loratadine (Loratadine 10 Mg Tablet) 10 mg PO DAILY PRN PRN Reason: Allergy Symptoms Stop: 06/29/24 06:54 Melatonin (Melatonin 5 Mg Tablet) 5 mg PO QHS PRN PRN Reason: Insomnia Stop: 06/28/24 21:34 Metoprolol Tartrate (Metoprolol Tartrate 25 Mg Tablet) 25 mg PO BID [facility] Stop: 06/29/24 20:59 Last Admin: 07/01/23 08:20 Dose: 25 mg Ondansetron HCl (Ondansetron 4 Mg/2 Ml Vial) 4 mg IV-PUSH Q8H PRN PRN Reason: Nausea And Vomiting Stop: 06/28/24 21:34 Oxycodone/Acetaminophen (Oxycodone/Acetaminophen 5-325 Mg Tablet) 2 tab PO Q6H PRN PRN Reason: Pain Last Admin: 07/01/23 03:35 Dose: 2 tab Pantoprazole Sodium (Pantoprazole 40 Mg Tablet.Dr) 40 mg PO BID [facility] Stop: 06/29/24 08:59 Last Admin: 07/01/23 08:21 Dose: 40 mg Primidone (Primidone 50 Mg Tablet) 100 mg PO HS [facility] Stop: 06/29/24 21:59 Last Admin: 06/30/23 21:17 Dose: 100 mg Sevelamer Carbonate (Sevelamer Carbonate 800 Mg Tablet) 800 mg PO TID.WITH.MEALS [facility] Stop: 06/29/24 11:59 Last Admin: 07/01/23 08:20 [...] signed by MD Los Grissom> 07/01/23 1016 [facility] Work Phone: 1([phone] 416-815601-05-2024 Progress note Author Jim Randhawa [facility] June 30, 2023 1:13pm Note Date/Time June 30, 2023 1: 13pm [facility] [address] [place] [address] Hospitalist Progress Note Signed Patient: Mabel Moser MR#: [id number] : 1960 Acct:[id number] Age/Sex: 63 / F Adm Date: 4 Loc: 3T Room: [address] [place] [address] Type: ADM IN Attending Dr: Jim Randhawa [...] signed by Jim Randhawa DO> 06/30/23 1313 [facility] Work Phone: 1(549) 337-958001-05-2024 Consult note Author Los Grissom [facility] June 30, 2023 10:45am Note Date/Time June 30, 2023 10 :26am [facility] [address] [place] [address] Nephrology Consult Note Signed Patient: Mabel Moser MR#: [id number] : 1960 Acct:[id number] Age/Sex: 63 / F Adm Date: 4 Loc: Room: [address] [place] [address] Type: ADM IN Attending Dr: Jim Randhawa [...] and no additional complaints, except as documented [facility] Medical History CAD (coronary artery disease) [...] 60 Mg Capsule.) 120 mg PO DAILY [facility] Stop: 06/29/24 08:59 Last Admin: 06/30/23 09:30 Dose: 120 mg Escitalopram Oxalate (Escitalopram 20 Mg Tablet) 20 mg PO DAILY [facility] Stop: 06/29/24 08:59 Last Admin: 06/30/23 09:31 Dose: 20 mg Fentanyl (Fentanyl Patch 100 Mcg/Hour Patch.Td72) 100 mcg TRANSDERML Q72H [facility]; Protocol Last Admin: 06/30/23 09:31 Dose: 100 mcg Ferrous Sulfate (Ferrous Sulfate 324 Mg Tablet.) 324 mg PO DAILY [facility] Stop: 06/29/24 08:59 Last Admin: 06/30/23 09:31 Dose: 324 mg Gabapentin (Gabapentin 100 Mg Capsule) 100 mg PO TID [facility] Stop: 06/29/24 08:59 Last Admin: 06/30/23 09:31 Dose: 100 mg Guaifenesin/Dextromethorphan (Guaif/Dextromethorphan Syrup 10 Ml Udc) 10 ml PO Q8H PRN PRN Reason: Cough Stop: 06/28/24 21:34 Heparin Sodium (Porcine) (Heparin 5,000 Unit/Ml Vial) 5,000 unit SUBCUT Q12HR [facility] Stop: 06/29/24 08:59 Last Admin: 06/30/23 09:32 Dose: 5,000 unit Levothyroxine Sodium (Levothyroxine 100 Mcg Tablet) 100 mcg PO DAILY@0630 [facility] Stop: 06/29/24 06:29 Last Admin: 06/30/23 05:55 Dose: 100 mcg Linaclotide (Linaclotide 290 Mcg Capsule) 290 mcg PO Q48HR [facility] Stop: 06/29/24 08:59 Last Admin: 06/30/23 09:33 Dose: 290 mcg Liothyronine Sodium (Liothyronine 25 Mcg Tablet) 25 mcg PO DAILY [facility] Stop: 06/29/24 08:59 Loratadine (Loratadine 10 [...] 40 Mg Tablet.Dr) 40 mg PO BID [facility] Stop: 06/29/24 08:59 Last Admin: 06/30/23 09:31 Dose: 40 mg Primidone (Primidone 50 Mg Tablet) 100 mg PO HS [facility] Stop: 06/29/24 21:59 Sevelamer Carbonate (Sevelamer Carbonate 800 Mg Tablet) 800 mg PO TID [facility] Stop: 06/29/24 08:59 Tizanidine HCl (Tizanidine [...] <Electronically signed by MD Los Grissom> 06/30/23 5461 [facility] Work Phone: 1(285) 336-463801-04-2024 History and physical note Author Beatriz Oh [facility] June 29, 2023 9:51pm Note Date/Time June 29, 2023 9: 47pm [facility] [address] [place] [address] Hospitalist H&P Signed Patient: Mabel Moser MR#: [id number] : 1960 Acct:[id number] Age/Sex: 63 / F Adm Date: 4 Loc: Room: [address] [place] [address] Type: ADM IN Attending Dr: Papito Garces [...] She denies having dysuria, hematuria, or frequency. [facility] Medical History CAD (coronary artery disease) [...] mg PO BID 08/31/18 [History Confirmed 10/28/22] zvjcukck-eduowfa-fypt-iron fum 18 mg-folic 600 mcg-vit K 80 [...] TID PRN Edema 10/28/22 [History Confirmed 10/28/22] rlcwbmrxkz-rsxeonedbmzsq-prigmtyx 50 mg-325 mg-40 mg capsule 1 cap [...] days): 3 Documented By: Beatriz Oh MD 06/29/237 Signed By: <Electronically signed by Beatriz Oh MD> 06/29/23 2159 [facility] Work Phone: 1(118) 783-415610-10-2023 Evaluation note* Encounter Date Diagnosis Assessment Notes [...] G43.519) Advised the patient to follow with [facility] neurology clinic Mar, Chronic kidney disea [...] (ICD-10 - E83.39) Continue PhosLo with meals [employer] Other 04-04-2023 Evaluation note* Encounter Date Diagnosis [...] G43.519) Advised the patient to follow with [facility] neurology clinic [employer] Other [id number] NoteThe [facility] [id number] Evaluation note* Encounter Date Diagnosis Assessment Notes Treatment Notes Treatment Clinical Notes Jul, Contusion of right wrist, initial encounter (ICD-10 - S60.211A) Patient placed in cock up wrist splint. Activities 2-5 lbs ADLs [employer] Other 12-13-2022 NoteThe [facility] [id number] NoteThe [facility] [id number] NoteThe [facility] [id number] Evaluation note * Encounter Date Diagnosis Assessment [...] pressure. Advised the patient to follow-up with [facility] neurology clinic I will try to reach to Dr. Santana's office about fludrocortisone I would continue same blood pressure medications. Advised the patient to follow a low-salt diet and to monitor her blood pressure at home Mar, Migraine aura, persistent, intractable (ICD-10 - G43.519) Advised the patient to follow with [facility] neurology clinic [employer] Other 08-04-2022 NoteThe [facility] [id number] NoteThe [facility] [id number] Evaluation note* Encounter Date Diagnosis Assessment Notes [...] off all diuretics metolazone, spironolactone and bumetanide. [employer] Other Discharge summary Author Jim Randhawa [facility] July 03, 2023 3:03pm Note Date/Time July 03, 2023 2: 55pm [facility] [address] [place] [address] Discharge Summary Signed Patient: Mabel Moser MR#: [id number] : 1960 Acct:[id number] Age/Sex: 63 / F Adm Date: 4 Loc: Room: [address] [place] [address]: Jim Randhawa DO Copies to: [...] <Electronically signed by Jim Randhawa DO> 07/03/23 9857 [facility] Work Phone: Evaluation + Plan note No data available for this section [facility] [place] Evaluation noteNo assessment information available [facility] Work Phone: Evaluation noteNo InformationNort [employer] Other Evaluation note* Diagnosis Onset Date Resolution Status Acute heart failure acute LEEANN (acute kidney injury) ac viejas Anemia chronic CKD (chronic kidney disease) stage 3, GFR 30-59 ml/min chronic Hypertension chronic [facility] Work Phone: Evaluation note* Diagnosis Onset Date Resolution Status CHF (congestive heart failure) acute Chronic kidney disease, stage 3b acute Fluid overload acute Hyperkalemia acute Secondary hyperparathyroidism acute Vitamin D deficiency acute Anemia chronic Hyponatremia chronic [facility] Work Phone: Evaluation note* Diagnosis Onset Date Resolution Status Admit Date CHF (congestive heart failure) acute October 02, 2024 2:44pm Chronic kidney disease, stage 3b acu te October 02, 2024 2:44pm Fluid overload acute October 02, 2024 2:44pm Hyperkalemia acute October 02, 2 025 2:44pm Secondary hyperparathyroidism acute October 02, 2024 2:44pm Vitamin D deficiency acute Apr2024 2:44pm Anemia chronic October 02 2:44pm Hyponatremia chronic October 02, 2 025 2:44pm [facility] Work Phone: Evaluation note* Diagnosis Onset Date Resolution Status Admit Date CHF (congestive heart failure) acute January 14, 2025 11:05am Chronic kidney disease, stage 3b acu te January 14, 2025 11:05am Fluid overload acute January 14, 2025 11:05am Hyperkalemia acute January 14, 2 025 11:05am Secondary hyperparathyroidism acute January 14, 2025 11:05am Vitamin D deficiency acute January 14, 2025 11:05am Anemia chronic January 14 11:05am Hyponatremia chronic January 14, 2 025 11:05am [facility] Work Phone: History general Narrative - Reported* [...] History COVID 05/2020 Hospitalization History COVID 04/2021 [employer] Other [employer] general Narrative - Reported* Type Description Date [...] Medical History C- DIFF 03/2021 Medical History [facility] 04/2021 Surgical History rotator cuff tear [...] History COVID 05/2020 Hospitalization History COVID 04/2021 [facility] [facility] Other [employer] general Narrative - Reported* Type Description Date [...] 04/2021 Hospitalization History ELEVATED POTASSIUM LEVEL 09/19/2022 [facility] [facility] Other Hospital Discharge instructions Additional Instructions Home health to manage: - PT/OT to eval and treat - Monitor VS routine - Dx. HTN - CHF assessments/education - Urinary assessments - Dx. CKD on LEEANN - Fall precautions - [facility] Work Phone: Hospital Discharge instructions No data available for this section [facility] Progress note No data available for this section [facility] Reason for referral (narrative)No reason for referral information availableOhio[facility] Work Phone: Summary Purpose Family History Relationship Condition Age at Onset Recorded Date/T gama father Heart disease Unknown Hypertension Unknown Diabetes mellitus Unknown Unknown family member Unknown mother History of stroke Unknown Malignant neoplasm Unknown Family history of mental disorder Unknown Heart disease Unknown Advance Directives Advance Directive Response Recorded Date/ Time Advance Directives No February 3:20pm Advance Directive Response Recorded Date/ Time Advance Directives No February 2:20pm Chief Complaint and Reason for Visit Chief Complaint sent by brandi phillips ues Chief Complaint LEEANN Reason for Visit Acute heart failure LEEANN (acute kidney injury) Anemia CKD (chronic kidney disease) stage 3, GFR 30-59 ml/min Hypertension Chief Complaint RENAL F/U Reason for Visit CHF (congestive hear t failure) Chronic kidney disease, stage 3b Fluid overload Hyperkalemia Secondary hyperparathyroidism Vitamin D deficiency Anemia Hyponatremia Chief Complaint Admit Date RENAL F/U October 02, 2024 2:44 pm Reason for Visit Admit Date CHF (congestive heart failure) September 2:44pm Chronic kidney disease, stage 3b October 022024 2:44pm Fluid overload October 02, 2024 2:44 pm Hyperkalemia October 02, 2024 2:44 pm Secondary hyperparathyroidism October 02, 2024 2:44pm Vitamin D deficiency October 02, 2024 2:4 4pm Anemia October 02, 2024 2:44 pm Hyponatremia October 02, 2024 2:44 pm Chief Complaint Admit Date renal 3 month f/u January 14, 2025 11:0 5am Reason for Visit Admit Date CHF (congestive heart failure) December 11:05am Chronic kidney disease, stage 3b January 142024 11:05am Fluid overload January 14, 2025 11:0 5am Hyperkalemia January 14, 2025 11:0 5am Secondary hyperparathyroidism January 14, 2025 11:05am Vitamin D deficiency January 14, 2025 11: 05am Anemia January 14, 2025 11:0 5am Hyponatremia January 14, 2025 11:0 5am Additional Source Comments INFORMATION SOURCE (unrecogn ized section and content) DATE CREATED AUTHOR 01/14/2019 [facility] DATE CREATED AUTHOR AUTHOR'S ORGANIZ ATION 07/24/2021 [facility] DATE CREATED AUTHOR AUTHOR'S ORGANIZ ATION 01/17/2022 [facility] DATE CREATED AUTHOR AUTHOR'S ORGANIZ ATION 12/05/2022 [facility] DATE CREATED AUTHOR AUTHOR'S ORGANIZ ATION 08/04/2023 [facility] DATE CREATED AUTHOR AUTHOR'S ORGANIZ ATION 10/19/2023 [facility] DATE CREATED AUTHOR AUTHOR'S ORGANIZ ATION 03/07/2024 [facility] DATE CREATED AUTHOR AUTHOR'S ORGANIZ ATION 03/27/2024 [facility] DATE CREATED AUTHOR AUTHOR'S ORGANIZ ATION 06/05/2024 [facility] DATE CREATED AUTHOR AUTHOR'S ORGANIZ ATION 10/13/2024 [facility] DATE CREATED AUTHOR AUTHOR'S ORGANIZ ATION 12/18/2024 [facility] REASON FOR VISIT (unrecogniz ed section and content) RENAL 6 month f/u for CKD st age [age] with recurrent LEEANN on diureticsRENAL 4 month Follow up, NO LABSRight Wrist InjuryRENAL 6 month Follow upClinicalClinicalTELEVISIT VS OVRENAL F/USWELLING Care Teams (unrecognized sec tion and content) Team Status: Active Member Role Status Dates Angle Santana MD Primary Care Provider Active Team Status: Active Member Role Status Dates Angle Santana MD Primary Care Provider Active Start: July 18, 2024 Raeann Kirkpatrick MD Attending Provider Active Star t: July 18, 2024 Team Status: Inactive Member Role Status Dates Angle Santana MD Primary Care Provider Active Start: October 02, 2024 End: October 02, 2024 Raeann Kirkpatrick MD Attending Provider Active Star t: October 02, 2024 End: October 02, 2024 Team Status: Inactive Member Role Status Dates [...] Angle Santana MD Primary Care Provider Active Start: March 26, 2024 End: March 26, 2024 Raeann Kirkpatrick MD Attending Provider Active Star t: March 26, 2024 End: March 26, 2024 Team Status: Active Member Role Status Adriana Santana MD Primary Care Provider Active Start: January 02, 2025 Raeann Kirkpatrick MD Attending Provider Active Star t: January 02, 2025 Team Status: Inactive Member Role Status Adriana Santana MD Primary Care Provider Active Start: January 14, 2025 End: January 14, 2025 Raeann Kirkpatrick MD Attending Provider Active Star t: January 14, 2025 End: January 14, 2025 Goals (unrecognized section and content) Goals may [...] BE BASED ON THE PRIMARY CLINICAL RECORDS. [facility]. provides no warranty or guarantee of the accuracy or completeness of information in this document.
[2025-02-10 11:57] VITALS: BP 179/102; PULSE 80; TEMP 36.2; O2SAT 97
[2025-02-10 12:31] VITALS: BP 208/89; PULSE 66; O2SAT 100
[2025-02-10 12:33] VITALS: BP 209/91; PULSE 70; O2SAT 100
[2025-02-10] MEDS: BUPIVACAINE HCL 0.25% PF 25 MG/10 ML VIAL 8 ML INJ (12:34)
[2025-02-10] MEDS: LIDOCAINE HCL 2% 400 MG/20 ML MDV INJ (12:35)
--- NOTE | 2025-02-10 12:43 | W.PM.PROCNOT ---
Date of procedure: 02/10/25 Pre-op diagnosis: Pain due to thoracic spondylosis without myelopathy Post-op diagnosis: same as pre-op Procedure: Procedure: Bilateral T5-6, 6-7 medial branch block Medications: Bupivacaine 0.25% 6cc The patient was seen and examined in the preoperative holding area.? An informed consent was obtained and placed on the chart.? The patient was brought to the medical procedure unit and placed in the prone position.? A timeout was completed verifying correct patient, procedure site, positioning, plan, and special equipment.? Using aseptic technique, the needle was placed at left T5. Under direct fluoroscopic visualization a Quincke-tipped spinal needle was advanced to the junction of the superior articulating process with the transverse process at the designated medial branch segment.? Preceded by negative aspiration, the above-mentioned injectate was placed in 1 mL aliquots.? The procedure was repeated at left T6, 7.? The needle was removed and insertion site was covered. The same procedure, at the same levels, was completed on the right side. The patient was taken to the postprocedural recovery area and monitored for an appropriate length of time before found suitable for discharge in the company of a responsible adult. Anesthesia: Local Surgeon: Riki Smith Pathology: none sent Condition: stable Disposition: no change
== END 2025-02-10 12:41 | disposition home or self-care (01) ==
PROVIDERS: PCP Family Medicine; Visit Provider Anesthesiology
DX: M47.814 Spondylosis without myelopathy or radiculopathy, thoracic region (principal); M54.6 Pain in thoracic spine
CPT/HCPCS: 64490; 64491; J0665

== ENCOUNTER 2025-03-18 12:20 | Outpatient (RCR) | payer MEDICARE, MEDICAID, SELFPAY ==
[2025-03-11 14:19] LABS: Hematocrit 34.1 % (36.0-48.0); Hemoglobin 10.8 g/dL (12.0-16.0); Immature Granulocytes Abs Auto 0.01 10^3/uL (0.00-0.03); Immature Granulocytes Pct Auto 0.1 % (0.0-0.5); Lymphocytes Absolute Auto 1.6 10^3/uL (1.2-3.8); Mean Corpuscular HGB Conc 31.7 g/dL (29.9-35.2); Mean Corpuscular Hemoglobin 30.5 pg (26.7-34.0); Mean Corpuscular Volume 96.3 fL (81.0-99.0); Platelet Count 196 10^3/uL (150-450); Red Blood Count 3.54 10^6/uL (4.20-5.40); White Blood Count 7.0 10^3/uL (4.0-11.0)
[2025-03-11] MEDS: HEPARIN SODIUM (PORCINE) PF LOCK FLUSH 500 UNIT/5 ML SYRINGE IV (14:35)
[2025-03-11 14:37] LABS: Alanine Aminotransferase 29 U/L (14-59); Albumin Globulin Ratio 1.0; Albumin Level 3.6 g/dL (3.4-5.0); Alkaline Phosphatase 176 U/L (46-116); Anion Gap 15.4; Aspartate Amino Transferase 28 U/L (15-37); Blood Urea Nitrogen 29.0 mg/dL (7.0-18.0); Calcium 8.1 mg/dL (8.5-10.1); Carbon Dioxide 19.7 mmol/L (21.0-32.0); Chloride 106 mmol/L (98-107); Estimated GFR (African America 34 (>=60 mL/min/1.73m^2); Estimated GFR (Non-African Ame 28 (>=60 mL/min/1.73m^2); Globulin 3.6 g/dL; Glucose 83 mg/dL (74-106); Potassium 5.1 mmol/L (3.5-5.1); Sodium 136 mmol/L (136-145); Total Protein 7.2 g/dL (6.4-8.2)
[2025-03-18] MEDS: HEPARIN SODIUM (PORCINE) PF LOCK FLUSH 500 UNIT/5 ML SYRINGE IV (12:30)
[2025-03-18 12:43] VITALS: BP 161/106; PULSE 100; TEMP 36.8; O2SAT 94
[2025-03-18 12:52] LABS: Hematocrit 34.5 % (36.0-48.0); Hemoglobin 10.7 g/dL (12.0-16.0); Immature Granulocytes Abs Auto 0.01 10^3/uL (0.00-0.03); Immature Granulocytes Pct Auto 0.2 % (0.0-0.5); Lymphocytes Absolute Auto 1.5 10^3/uL (1.2-3.8); Mean Corpuscular HGB Conc 31.0 g/dL (29.9-35.2); Mean Corpuscular Hemoglobin 30.2 pg (26.7-34.0); Mean Corpuscular Volume 97.5 fL (81.0-99.0); Platelet Count 208 10^3/uL (150-450); Red Blood Count 3.54 10^6/uL (4.20-5.40); White Blood Count 5.5 10^3/uL (4.0-11.0)
[2025-03-18 13:49] LABS: Alanine Aminotransferase 37 U/L (14-59); Albumin Globulin Ratio 1.3; Albumin Level 4.0 g/dL (3.4-5.0); Alkaline Phosphatase 211 U/L (46-116); Anion Gap 15.1; Aspartate Amino Transferase 27 U/L (15-37); Blood Urea Nitrogen 32.0 mg/dL (7.0-18.0); Calcium 8.3 mg/dL (8.5-10.1); Carbon Dioxide 19.7 mmol/L (21.0-32.0); Chloride 106 mmol/L (98-107); Estimated GFR (African America 36 (>=60 mL/min/1.73m^2); Estimated GFR (Non-African Ame 29 (>=60 mL/min/1.73m^2); Globulin 3.1 g/dL; Glucose 85 mg/dL (74-106); Potassium 4.8 mmol/L (3.5-5.1); Sodium 136 mmol/L (136-145); Total Protein 7.1 g/dL (6.4-8.2)
== END 2025-03-25 23:59 | disposition home or self-care (01) ==
LOC: INF 12:20
PROVIDERS: PCP Family Medicine; Visit Provider Family Medicine
DX: E87.70 Fluid overload, unspecified (principal); I10 Essential (primary) hypertension; E87.1 Hypo-osmolality and hyponatremia; M47.817 Spondylosis without myelopathy or radiculopathy, lumbosacral region; M54.17 Radiculopathy, lumbosacral region; M54.14 Radiculopathy, thoracic region
CPT/HCPCS: 36415; 36591; 72146; 72148; 80053; 83930; 85025; J1642

== ENCOUNTER 2025-03-18 12:45 | Outpatient (OUT) | payer MEDICARE, MEDICAID, SELFPAY ==
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
--- OUTSIDE RECORDS SUMMARY | 2023-12-01 06:00 | XMS_ITS ---
Author Organization [facility] Address [address] [place] [address] Care Team Providers Care Nursery Nurse Name Role Phone Yuri Godinez Primary Care Provider Therese Diaz Loi Daniel Unavailable [phone] Laurie Shelton Unavailable [phone] Allergies Allergen (clinical drug ingredient) Drug/Non Drug Allergy documented on EMR Reaction Allergy Type Onset Date Status amoxicillin / clavulanate Augmentin diarrhea Drug Allergy Active REASON FOR VISIT MRI review of [...] Problem Status W/U Status Risk Notes Problem [id number] Sciatica of left side (M54.32) Active confirmed Problem 08866742 Lumbar stenosis with neurogenic claudication (M48.062) Active confirmed Problem 908017844731399 Primary osteoarthritis of left knee (M17.12) Active confirmed Encounters Encounter Location Date Provider Diagnosis [facility] [place] [facility] [address] [place] [address] [place] [address] [place] [address] 12/01/2023 Laurie escobarglo Closed nondisplaced fracture of second cervical vertebra [...] 1. Chronic C2 odontoid fracture 2. Lumbar stenosis/NC/ left sciatica 3. Left knee OA 12/01/2023 Lumbar stenosis with neurogenic claudication (ICD-10 - M48.062) 1. Chronic C2 odontoid fracture 2. Lumbar stenosis/NC/ left sciatica 3. Left knee OA 12/01/2023 Sciatica of left side (ICD-10 - M54.32) 1. Chronic C2 odontoid fracture 2. Lumbar stenosis/NC/ left sciatica 3. Left knee OA 12/01/2023 Primary osteoarthritis of left knee (ICD-10 - M17.12) 1. Chronic C2 odontoid fracture 2. Lumbar stenosis/NC/ left sciatica 3. Left knee OA 12/01/2023 Other Patient evaluated and plan established by Dr. Feliciano. At this time, Dr. Feliciano discussed MRI results with the patient. Patient can discontinue use of the [place] collar. We will refer her to pain [...] 1. Chronic C2 odontoid fracture 2. Lumbar stenosis/NC/ left sciatica 3. Left knee OA Plan Of Treatment Treatment Notes Assessment Notes Other Patient evaluated and plan established by Dr. Feliciano. At this time, Dr. Feliciano discussed MRI results with the patient. Patient can discontinue use of the [place] collar. We will refer her to pain [...] * JOSE CLEMENTS ADOB:1959 (65 yo F)Acc No.[id number]:12/01/2023 Patient: JOSE CLAYTON Provider: CAR Driscoll :1960 A ge:63 Y S ex:Female Date:12/01/2023 Address:[address] [place], [place] [id number] Pcp:Yuri Godinez Subjective: * Chief Complaints: * 1 . MRI review of the Cervical Spine. * HPI: G eneral Follow Up Information: Dictated by Laurie Don PA-C The patient [...] C2 fracture. She has been in an [place] collar. We set her up with a MRI of the cervical spine. The patient returns to the office today to discuss results. Patient denies bowel or bladder incontinence or urinary retention. * ROS: M usculoskeletal: Admits N murphy Pain. G enitourinary: Denies I ncontinence. * Medical History: H igh Blood Pressure, [...] ugmentin: diarrhea. Objective: * Vitals: * Examination: G eneral examination: O n examination, the patient is well-developed, well-nourished, well-groomed, alert and oriented x3, normal mood. Walks with antalgic gait and uses a walker. She is wearing a [place] collar. Midline tender over the cervical spine. 5/5 muscle strength right upper extremity, 4/5 strength left upper extremity. Decreased sensation to the left upper extremity, cannot actively extend right fifth digit. X -ray Imaging Studies: M RI Imaging Studies: M RI cervical spine without contrast reviewed from the [facility] from 11/03/2023; Impression:Mild degenerative changes of the cervical spine in particular at C6- C7. No note of acute fracture of C2. . Assessment: * Assessment: 1. C losed nondisplaced fracture of second cervical vertebra with routine healing, unspecified fracture morphology, subsequent encounter - S12.101D (Primary) 2 . L umbar stenosis with neurogenic claudication - M48.062 3 . S ciatica of left side - M54.32? 4. P rimary osteoarthritis of left knee - M17.12 1. Chronic C2 odontoid fract ure 2. Lumbar stenosis/NC/left sciatica 3. Left knee OA. Plan: * Treatment: * Follow Up: p rn Forms: * Images: * Electronic signature of Yinka Shelton PA-C on 03/18/2025 at 12:47 PM EDT Sign off status: Pending * Provider: CAR Driscoll Date: 0 12/01/2023 Generated for Inocente gann/Vonda/eTransmitting on: 0 03/18/2025 12:47 PM EDT History and Physical Notes * HPI (History of Present Illness) Category Sub-Category Detail Notes Category Not es General Follow Up Information Dictated by Laurie Don [...] C2 fracture. She has been in an [place] collar. We set her up with a MRI of the cervical spine. The patient returns to the office today to discuss results. Patient denies bowel or bladder incontinence or urinary retention. Examination Category Sub-Category Detail Notes Category Not es General examination On exami nation, the patient is well-developed, well-nourished, well-groomed, alert and oriented x3, normal mood. Walks with antalgic gait and uses a walker. She is wearing a [place] collar. Midline tender over the cervical spine. 5/5 muscle strength right upper extremity, 4/5 strength left upper extremity. Decreased sensation to the left upper extremity, cannot actively extend right fifth digit. X-ray Imaging Studies MRI Imaging Studies MRI cervical spine without contrast reviewed from the [facility] from 11/03/2023; Impression:Mild degenerative changes of the cervical spine in particular at C6-C7. No note of acute fracture of C2.
--- OUTSIDE RECORDS SUMMARY | 2025-02-18 10:30 | XMS_ITS ---
Author Organization The [facility] in [place] Address [address] [place] [address] Care Team Providers Care Pediatric Medical Assistant Name Role Phone Vinay Godinez Primary Care Provider Ny Rae Unavailable [phone] REASON FOR VISIT CS Encounters Encounter Location Date Provider Diagnosis [facility] Oncology [address] [place] [address] 02/18/2025 Ny Rae Plan Of Treatment Next Appt Details Provider Name:Ny Rae , 03/18/2025 02:45:00 PM, [address] [place], [address], Progress Notes * Mabel CLEMENTS ADOB:1959 (65 yo F)Acc No.[id number]:02/18/2025 UNLOCKED PROGRESS NOTE Progress Note Patient: Bob Mabel BURGOS Provider: Ivy Rae M.D. :1960 A ge:64 Y S ex:Female Date:02/18/2025 Address:[address] [place] [phone] Pcp:Vinay Godinez Subjective: * Chief Complaints: * 1 . CS. * Medical History: Objective: * Vitals: Assessment: Plan: * Treatment: * * Electronic signature of Jonny Rae MD, [id number] on 03/18/2025 at 12:47 PM EDT Sign off status: Pending Visit Status: P EN (Pending) * Provider: Ivy Rae M.D. Date: 0 02/18/2025 Generated for Inocente gann/Vonda/Florniaitting on: 0 03/18/2025 12:47 PM EDT
--- OUTSIDE RECORDS SUMMARY | 2025-03-18 12:47 | XMS_ITS | Clinical Summary ---
Author Organization [facility] Address [address] [place], [place] [address] Support Name Relationship Address Phone Delio Moser Spouse 06/[address] [place] [address] Jyothi Perez Daughter Unknown [phone] Care Team Providers Care Search Specialist Name Role Phone Yuri Godinez MD Primary Care Provider [phone] Allergies Active Allergy Reactions Criticality Noted Date [...] N ot on file 06/03/2020 Data from: [email or web address] Last address used for calculation Not [...] - 8.0 g/dL 11/06/2019 2:52 PM EDT [facility] Albumin 4.0 3.9 - 4.9 g/dL 11/06/2019 2:52 PM EDT [facility] Calcium 8.1(L) 8.5 - 10.2 mg/dL 11/06/2019 2:52 PM EDT [facility] Bilirubin, Total 0.2 0.2 - 1.3 mg/dL 11/06/2019 2:52 PM EDT [facility] Alkaline Phosphatase 147(H) 34 - 123 U/L 11/06/2019 2:52 PM EDT [facility] AST 27 13 - 35 U/L 11/06/2019 2:52 PM EDT [facility] Glucose 90 74 - 99 mg/dL 11/06/2019 2:52 PM EDT [facility] Comment: The [employer] Diabetes Association (ADA) provides guidance for cutoff [...] Standards of Medical Care in Diabetes 2016, [employer] Diabetes [employer]. Diabetes Care. 2016.39(Suppl 1). BUN 19 7 - 21 mg/dL 11/06/2019 2:52 PM EDT [facility] Creatinine 0.96 0.58 - 0.96 mg/dL 11/06/2019 2:52 PM EDT [facility] Sodium 122(L) 136 - 144 mmol/L 11/06/2019 2:52 PM EDT [facility] Potassium 4.2 3.7 - 5.1 mmol/L 11/06/2019 2:52 PM EDT [facility] Chloride 88(L) 97 - 105 mmol/L 11/06/2019 2:52 PM EDT [facility] CO2 26 22 - 30 mmol/L 11/06/2019 2:52 PM EDT [facility] Anion Gap 8(L) 9 - 18 mmol/L 11/06/2019 2:52 PM EDT [facility] ALT 20 7 - 38 U/L 11/06/2019 2:52 PM EDT [facility] eGFR- >60 11/06/2019 2:52 PM EDT [facility] eGFR-All Other Races 60 . 11/06/2019 2:52 PM EDT [facility] Comment: eGFR (Estimated GFR) Units of [...] EDT Charles Tesfaye MD LABORATORY Final Result [facility] [address] [place] [address] [facility] [address] [place], [place] from Last 3 Months or Most Recently Relevant to Health Maintenance Insurance [facility] DUAL COMPLETE HMO SNP Member Subscriber Plan / Payer ( fective 2018-Present) Name:Mabel Moser Relation to Subscriber:Self Name:Mabel Moser Payer ID:[id number] (NAIC) Group ID:[id number] Type:Medicare Address: [address] [address] MEDICAID [place] Care Teams Search Specialist Relationship Specialty Start Date End Date Yuri Godinez MD PCP - General Family Medicine 09/24/12
--- NOTE | 2025-03-18 12:48 | MR_ITS ---
[address] [address] Patient Name: JOSE CLEMENTS MRN: [id number] date: 1960 Sex: F Assigned Patient Location: MRI Current Patient Location: MRI Accession/Order Number: [id number] Exam Date: 03/18/2025 13:00 Report Date: 03/18/2025 17:09 At the request of: ANGLE SANTANA MD Procedure: MR thoracic spine wo con MRI thoracic spine performed without contrast INDICATION: Thoracic radiculopathy, chronic thoracic lumbar pain radiates into both shoulders and bilateral lower extremities COMPARISON: None FINDINGS: Mild to moderate dextrocurvature mid thoracic spine. Is minimal loss of height T5 and T7. Otherwise Otherwise the thoracic vertebral heights, alignment and bone marrow signal is unremarkable. Multilevel facet arthropathy lower greatest lower thoracic spine. Moderate changes involving the lower thoracic disc spaces. The thoracic cord demonstrates normal signal morphology. Paraspinal soft tissues demonstrate abnormally dilated common bile duct measuring 2.4 cm T1-T8: Mild facet arthropathy. No significant disease central canal or neural from narrowing identified. T8-T11 moderate severe facet arthropathy. Mild foraminal narrowing. Moderate stenosis at T10-11. T11-12: Moderate arthropathy with moderate foraminal narrowing. Mild to moderate stenosis. T12-L1: Broad-based disc bulge with moderate severe facet arthropathy. There is moderate severe right and moderate left foraminal narrowing. Moderate stenosis. MR/MR thoracic spine wo con IMPRESSION: Bdef-yd-gdbebhln degenerative changes lower thoracic spine predominantly caused by posterior elements degeneration. Moderate canal narrowing at T10-11 due to hypertrophic changes of the ligamentum flavum. Impression dictated by: Carlyle Alexander M.D. 03/18/2025 5:09 PM Dictation Location: [place] [address] Electronically authenticated by: [id number] Y Date: 03/18/2025 17:09
--- NOTE | 2025-03-18 12:48 | MR_ITS ---
The [address] [address] Patient Name: JOSE CLEMENTS MRN: [id number] date: 1960 Sex: F Assigned Patient Location: MRI Current Patient Location: MRI Accession/Order Number: [id number] Exam Date: 03/18/2025 13:00 Report Date: 03/18/2025 17:55 At the request of: ANGLE SANTANA MD Procedure: MR lumbar spine wo con MR lumbar spine wo con 03/18/2025 2:11 PM SIGNS AND SYMPTOMS: Chronic thoracic and lumbar pain radiating into lower extremities with weakness PROTOCOL: Multiplanar multisequence MR images of the lumbar spine without IV contrast COMPARISON: 01/27/2025 FINDINGS: The bones of the lumbar spine are in anatomic alignment. There is preservation of vertebral body heights. There is posterior and intervertebral fusion from L3 through L5. There is a transitional S1 vertebral body segment with a rudimentary S1-S2 intervertebral disc. There is mild disc height loss at L5-S1. There is posterior decompression from L3 through L5. Mild Modic type I endplate edema is noted at L1-L2. The conus terminates at the inferior endplate of the L1 vertebral body level. No epidural or paraspinous fluid collection is appreciated. There is a simple cyst in the right renal cortex requiring no further follow-up. At T12-L1: There is a normal disc, central canal, and neural foramen. At L1-L2: There is a broad-based disc bulge with a right central through foraminal disc protrusion. There is facet hypertrophy and ligamentum flavum thickening. There is mild spinal canal stenosis with moderate right and mild left neural foraminal narrowing. At L2-L3: There is a normal disc, central canal, and neural foramen. At L3-L4: Posterior decompression is noted with posterior and intervertebral fusion. No significant stenosis. At L4-L5: There is posterior decompression with posterior and intervertebral fusion. No significant stenosis. At L5-S1: There is facet hypertrophy left greater than right. There is mild left neural foraminal narrowing without spinal canal narrowing. MR/MR lumbar spine wo con IMPRESSION: At L1-L2: There is a broad-based disc bulge with a right central through foraminal disc protrusion. There is facet hypertrophy and ligamentum flavum thickening. There is mild spinal canal stenosis with moderate right and mild left neural foraminal narrowing. There is posterior and intervertebral fusion from L3 through L5 with posterior decompression. Impression dictated by: Fidel Estrada M.D. 03/18/2025 5:55 PM Dictation Location: [place] [address] Electronically authenticated by: [id number] Y Date: 03/18/2025 17:55
--- OUTSIDE RECORDS SUMMARY | 2025-03-18 12:49 | XMS_ITS | Clinical Summary ---
Author Organization [employer] Address [id number] [address] [place] [address] Care Team Providers Care Slubber Runner Name Role Phone Yuri Godinez MD Primary Care Provider [phone] Allergies Active Allergy Reactions Criticality Noted Date [...] mouth 2 (two) times a day. Active mzznvzmj-qxva-BN-c alcium &mins (THERAGRAN-M) 9 mg iron-400 mcg tablet Take 1 tablet by mouth daily. Active rizatriptan FUEL ISLAND ATTENDANT (MAXALT-FUEL ISLAND ATTENDANT) 10 mg disintegrating tablet Dissolve 10 mg [...] (06/05/2019): Added automatically from request for surgery [id number] Tympanic membrane perforation, right 07/31/2018 Bilateral hearing [...] Vaccines (1 - Tdap) 1981 COVID-19 Vaccine (2024- 6 season) 2025 04/07/2022, 09/24/2020, 08/27/2020 Influenza Vaccine 02/24/2025 03/11/2023, , 04/07/2022, Additional history exists Zoster (Shingles) Vaccine Completed 08/19/2022, Medical Devices Implanted Type Area Senior Officer Device Identifier Shelf Expiration Date Model / Serial / Lot Soft Tissue Device Statak 5.2m M - Sna - [id number] Implanted:Qty: 1 on 08/11/2017 by Patrick Lala MD at [facility] [place] Right: Knee [employer] 06/25/2019 [id number] / NA / [id number] Cmnt Bn Plc R+Ggnta 40gm Grn Rpl [id number] - Sna - [id number] Implanted:Qty: 1 on 08/11/2017 by Patrick Lala MD at [facility] Cement Right: Knee [employer] 09/23/2020 [id number] 1 / NA / [id number] Cmnt Bn Plc R+Ggnta 40gm Grn Rpl [id number] - Sna - [id number] Implanted:Qty: 1 on 08/11/2017 by Patrick Lala MD at [facility] Cement Right: Knee [employer] 11/23/2020 [id number] 1 / NA / [id number] Cmnt Bn Plc R+Ggnta 40gm Grn Rpl [id number] - Sna - [id number] Implanted:Qty: 1 on 08/11/2017 by Patrick Lala MD at [facility] Cement Right: Knee [employer] [id number] 09/23/2020 [id number] 1 / NA / [id number] Tiss Aldrm Gft 2x4cm 6-12 Ea=1 Sheet=8 Cm2 - [id number] - [id number] Implanted:Qty: 8 on 08/01/2019 by Anuj Mcallister MD PhD at [facility] Graft Right: Ear [employer] 10/23/2020 [id number] / [id number] / [id number] Description:AlloDerm Regener ative Tissue Matrix Cmpt Ptlr 32mm Nxgn Alply Rpl [id number] - Sna - [id number] Implanted:Qty: 1 on 08/11/2017 by Patrick Lala MD at [facility] Orthopedic Implant Right: Knee [employer] 03/25/2025 [id number] 2 / NA / [id number] Cmpt Fem E Kn Rt Lpsflx Gndr Rpl [id number] - Sna - [id number] Implanted:Qty: 1 on 08/11/2017 by Patrick Lala MD at [facility] Orthopedic Implant Right: Knee [employer] 03/25/2027 [id number] / NA / [id number] Ins Artc 3-4 E-F 12mm Kn Fx Rpl [id number] - Sna - [id number] Implanted:Qty: 1 on 08/11/2017 by Patrick Lala MD at [facility] Orthopedic Implant Right: Knee [employer] 01/23/2022 [id number] 2 / NA / [id number] Plt Tib [id number] Nxgn Kn Cmnt Rpl [id number] + [id number] - Sna - [id number] Implanted:Qty: 1 on 08/11/2017 by Patrick Lala MD at [facility] Plate Right: Knee [employer] [id number] 07/26/202795-9420-179-0 2 / NA / [id number] Port Port Description:indwelling right chest port for ongoing iron infusions Cancellous Screw 4.0 - Sna - [id number] Implanted:Qty: 1 on 08/11/2017 by Patrick Lala MD at [facility] Screw Right: Knee [employer] 08/11/2021 [id number] / NA / NA Port Description:right chest port for iron infusions Insurance [employer] MEDICARE MEDICAID [place] Care Teams Slubber Runner Relationship Specialty Start Date End Date Yuri Godinez MD PCP - General 12/06/16
--- OUTSIDE RECORDS SUMMARY | 2025-03-18 12:49 | XMS_ITS | Clinical Summary ---
Author Organization [facility] Address [address] [place] [address] Care Team Providers Care Line Up Machine Operator Name Role Phone Yuri Godinez MD Primary Care Provider [phone] Allergies Active Allergy Reactions Criticality Noted Date Comments Amoxicillin-Pot Clavulanate Unknown,GI intolerance,Diarrhea,Naus ea And Vomiting Low 06/13/2014 Gabapentin 10/10/2022 Iodine Unknown 11/27/2022 Povidone Iodine Unknown 11/27/2022 Sulfamethoxazole-Trimethopri m Unknown 11/27/2022 Medications Fluticasone-Salmet malik (Advair Diskus) 500-50 MCG/ACT aerosol powder 1 puff every 12 (twelve) hours. Active fentaNYL (Duragesic) 50 MCG/HR 1 patch to skin Transdermal Active ARIPiprazole (Abilify) 5 MG tablet 1 (one) time each day at the same time. Active atorvastatin (Lipitor) 80 MG tablet 1 (one) time each day at the same time. Active butorphanol (Stadol) 10 MG/ML nasal spray every 8 (eight) hours. Active Cetirizine HCl (ZyrTEC ALLERGY) 10 MG capsule 1 (one) time each day at the same time. Active citalopram (CeleXA) 40 MG tablet 1 (one) time each day at the same time. Active clopidogrel (Plavix) 75 MG tablet TAKE ONE TABLET BY MOUTH DAILY Oral for 30 Active lidocaine (Lidoderm) 5 % patch 1 (one) time each day at the same time. Active metoclopramide (Reglan) 5 MG tablet every 6 (six) hours. Active oxyCODONE-acetamin ophen (Percocet) 5-325 MG tablet every 6 (six) hours. Active pantoprazole (Protonix) 40 MG packet 1 packet every 12 (twelve) hours. Active primidone (Mysoline) 50 MG tablet 2 Orally hs Active spironolactone (Aldactone) 100 MG tablet every 12 (twelve) hours. Active bumetanide (Bumex) 2 MG tablet 1 (one) time each day at the same time. Active albuterol (2.5 MG/3ML) 0.083% nebulizer solution every 8 (eight) hours. Active ALPRAZolam (Xanax) 0.25 MG tablet (Schedule IV Drug) TAKE 1/2 TO 1 TABLET BY MOUTH 3 TIMES DAILY NEEDED Oral for 3 Active Syringe/Needle, Disp, (B-D 3CC LUER-JOSE SYR 25GX1/2 ) 25G X 1-1/2 3 ML misc BD Luer-Jose Syringe 3 mL 25 x 1 1/2 Active Fluticasone Furoate-Vilanterol (BREO ELLIPTA IN) if needed. A ctive glucose blood (Glucose Meter Test) test strip glucose meter,johnnie chambers Active Multiple Vitamins-Minerals (MULTIVITAMIN ADULTS PO) multivitamin Active Lancets (OneTouch Delica Plus [id number]) misc OneTouch Delica Plus Lancet 33 gauge Active B Complex Vitamins (VITAMIN B COMPLEX PO) Daily. Active albuterol HFA (Ventolin HFA) 90 mcg/act inhaler if needed. Act ankur amitriptyline (Elavil) 150 MG tablet amitriptyline 150 mg tablet Active butalbital-acetami oqyzzs-jvzklptc-lh deine (Fioricet W/Codeine) 13-155-87-30 MG capsule every 6 (six) hours. Active calcium acetate (Phoslo) 667 MG capsule calcium acetate(phosphate binders) 667 mg capsule 09/30/19 23 Active calcium carbonate (Os-Gabriel) 1250 (500 Ca) MG chewable tablet Chew 1 tablet in the morning and 1 tablet at noon and 1 tablet in the evening and 1 tablet before bedtime. Active cholecalciferol (Vitamin D-3) 50 MCG (2000 UT) capsule Take 1.25 Units by mouth. Active cyanocobalamin (Vitamin B-12) 1000 MCG/ML injection 1 mL. Active dicyclomine (Bentyl) 20 MG tablet 4 (four) times a day as needed. Active ferrous sulfate 325 (65 Fe) MG tablet Take 325 mg by mouth in the morning. Take with meals. Active Ferrous Sulfate (IRON PO) Take 1 tablet by mouth in the morning. Active fluconazole (Diflucan) 100 MG tablet fluconazole 100 mg tablet Active hydrALAZINE (Apresoline) 50 MG tablet hydralazine 50 mg tablet Active hydrocortisone 2.5 % cream hydrocortisone 2.5 % topical cream APPLY A THIN LAYER TO THE AFFECTED AREA(S) BY TOPICAL ROUTE 2 TIMES PER DAY Active ipratropium-albute rol (Duo-Neb) 0.5-2.5 mg/3 mL nebulizer solution ipratropium 0.5 mg-albuterol 3 mg (2.5 mg base)/3 mL nebulization soln Active levothyroxine (Synthroid, Levoxyl) 100 MCG tablet levothyroxine 100 mcg tablet Active Linzess 290 MCG capsule Linzess 290 mcg capsule Active liothyronine (Cytomel) 25 MCG tablet liothyronine 25 mcg tablet Active metoprolol tartrate (Lopressor) 50 MG tablet metoprolol tartrate 50 mg tablet Active neomycin-polymyxin -dexAMETHasone (Maxitrol) 0.1 % ophthalmic suspension neomycin-polymyxi n-dexameth 3.5 mg/mL-10,000 unit/mL-0.1% eye drops Active ondansetron ODT (Zofran-ODT) 4 MG disintegrating tablet ondansetron 4 mg disintegrating tablet Active Entresto 97-103 MG tablet Take 1 tablet by mouth in the morning and 1 tablet in the evening. Active tiZANidine (Zanaflex) 4 MG tablet tizanidine 4 mg tablet Active Active Problems Problem Noted Date Diagnosed Date Abnormal blood chemistry 11/27/2022 Anxiety 11/27/2022 Arthralgia 11/27/2022 Cerebrovascular accident (CVA) 11/27/2022 Chronic back pain 11/27/2022 Chronic obstructive pulmonary disease 11/27/2022 Constipation 11/27/2022 Depression 11/27/2022 Difficulty walking 11/27/2022 Functional neurologic complaint 11/27/2022 Gastroesophageal reflux disease 11/27/2022 Hemiparesis due to old stroke 11/27/2022 Hemiparesis, left 11/27/2022 History of total right knee replacement 11/28/19 23 Hypothyroidism 11/27/2022 Insomnia 11/27/2022 Internal derangement of right shoulder Lumbar paraspinal muscle spasm 11/27/2022 Lumbar stenosis 11/27/2022 Obesity (BMI 30-39.9) 11/27/2022 Neurogenic pain 11/27/2022 Osteoarthritis of spine with radiculopathy, lumb ar region 11/27/2022 Pain, lower extremity 11/27/2022 Lateral femoral cutaneous neuropathy, left 11/27 Plantar wart, left foot 11/27/2022 Polyneuropathy 11/27/2022 Polyneuropathy associated with critical illness 11/27/2022 Seizure disorder 11/27/2022 Spondylosis of lumbosacral region 11/27/2022 Unilateral primary osteoarthritis, right knee Immunizations Immunization Administration Dates Next Due Influenza, injectable, quadrivalent, preservativ e free 04/03/2018 Pneumococcal Polysaccharide PPSV23 04/12/2016 Family History Medical History Relation Name Comments Diabetes Father Heart disease Father Heart failure Father Hypertension Father Stroke Father Anxiety disorder Mother Cancer Mother Depression Mother Diabetes Mother Heart disease Mother Hyperlipidemia Mother Hypertension Mother Lung disease Mother Relation Name Status Comments Father Mother Alive Social History Tobacco Use Types Packs/Day Years Used Date Smoking Tobacco: Never Assessed Comments Unknown Sex and Gender Information Value Date Recorded Sex Assigned at Not on file Legal Sex Female 7:05 PM EDT Gender Identity Not on file Sexual Orientation Not on file Last Filed Vital Signs Vital Sign Reading Time Taken Comments Blood Pressure 124/70 07/08/2019 12:00 PM EST Pulse - - Temperature - - Respiratory Rate - - Oxygen Saturation - - Inhaled Oxygen Concentration - - Weight 91.2 kg (201 lb) 12/10/2019 12:00 PM EDT Height 162.6 cm (5' 4 ) 12/10/2019 12:00 PM EDT Body Mass Index 34.5 12/10/2019 12:00 PM EDT Plan of Treatment Health Maintenance Due Date Last Done Comments CT Colonography 1962 Colonoscopy 1962 Colorectal Cancer Screening 1962 FIT-DNA 1962 FIT 1962 FOBT 1962 Sigmoidoscopy 1962 Pap Smear 1983 Cervical Cancer Screening 02/24/1992 HPV/Cotest 02/24/1992 Mammogram 2002 Influenza Vaccine (#1) 2025 2, 04/07/2022, 03/24/2021, Additional history exists Insurance [employer]ARE MEDICAID [place] Care Teams Line Up Machine Operator Relationship Specialty Start Date End Date Yuri Godinez MD PCP - General Family Medicine 11/28/22
--- OUTSIDE RECORDS SUMMARY | 2025-03-18 12:49 | XMS_ITS | Encounter Summary ---
Author Organization [facility] Address [address], [address] [place] [address] Care Team Providers Care Senior Medical Technologist Name Role Phone Yuri Godinez MD Primary Care Provider [phone] Encounter Details Date Type Department Care Team (Late st Contact Info) Description 09/29/2023 Direct Admit Orders [facility] INT MED [address] [place] [address] Luzma Gaspar PA Social History Tobacco Use Types Packs/Day Years Used Date Smoking Tobacco: Never Smokeless Tobacco: Never Alcohol Use Standard Drinks/Week Comments Never 0 (1 standard drink = 0.6 oz pur e alcohol) [facility] Utilities Answer Date Recorded In the [...] place to sleep or slept in a alf (including now)? No 09/30/2023 Food Insecurity Answer [...] on filedocumented in this encounter Care Teams Senior Medical Technologist Relationship Specialty Start Date End Date Yuri Godinez MD [address] [phone] PCP - General Family Medicine 09/07/18 documented as of this encounter
--- OUTSIDE RECORDS SUMMARY | 2025-03-18 12:49 | XMS_ITS | Patient Health Record ---
Author Organization [facility] in [place] Address [address] [place] [address] Care Team Providers Care Field Cane Scaler Helper Name Role Phone Vinay Godinez Primary Care Provider [phone] Rae Unavailable [phone] Sheridan Love Unavailable [phone] Allergies Allergen (clinical drug ingredient) Drug/Non Drug [...] Osmolality 285 280-301 mOsmol/kg Performed at: - [facility] [id number] Scroll Saw Operator: Nicolas Arenas MD, Phone: [phone] Performing Lab: see note LC - [facility] LB Osmolality Reviewed date:03/22/2024 08:05:29 AM Interpretation: Performing Lab: Notes/Report: [facility] , Osmolality 301 280-301 mOsmol/kg Performed at: - [facility] [address] [id number] Scroll Saw Operator: Nicolas Arenas MD, Phone: [phone] Performing Lab: see note LC - [facility] LB Osmolality Reviewed date:04/01/2024 09:32:13 AM Interpretation: Performing Lab: Notes/Report: [facility] , Osmolality 288 280-301 mOsmol/kg Performed at: - [facility] [address] [id number] Scroll Saw Operator: Nicolas Arenas MD, Phone: [phone] Performing Lab: see note - [facility] LB BNP Reviewed date:03/30/2024 11:38:06 AM Interpretation: Performing Lab: Notes/Report: [facility] , NT Pro B Type Natriuretic Pept 805.0 <=900.0 pg/mL Performing Lab: see note ML - [facility] LB PROF CHEM 8 (BAS METB) Reviewed date:03/30/2024 11:38:06 AM Interpretation: Performing Lab: Notes/Report: [facility] , Sodium 133 136-145 mmol/L Potassium 4.1 [...] 11:38:06 AM Interpretation: Performing Lab: Notes/Report: [facility] , Troponin I High Sensitivity 11.2 4.0-51.3 pg/m L CUT-OFF POINTS HAVE BEEN ESTABLISHED BASED ON THE FOURTH UNIVERSAL DEFINITION OF MYOCARDIAL INFARCTION. THE UPPER REFERENCE LIMIT (URL) OF TROPONIN, DEFINED THE 99TH PERCENTILE OF cTnI DISTRIBUTION IN A REFERENCE POPULATION, HAS BEEN CONFIRMED THE DECISION THRESHOLD FOR DE DIAGNOSIS. 99TH PERCENTILE = 51.4 PG/ML NOTE: HIGH-SENSITIVITY TROPONIN ASSAY IS NOT INTENDED TO BE USED IN ISOLATION BUT SHOULD BE INTERPRETED IN CONJUNCTION WITH OTHER DIAGNOSTIC AND CLINICAL INFORMATION. Performing Lab: see note ML - [facility] LB ECG 12 lead Reviewed date:03/30/2024 11:38:06 AM Interpretation: Performing Lab: Notes/Report: Source Facility: [place] [address] Electrocardiograph Report Signed Patient: JOSE MOSER MR#: [id number] : 1960 Acct:[id number] Age/Sex: 64 / F ADM Date: 03/29/24 Loc: MS 220-[address]: Angle Godinez M.D. Ordering Physician: Teressa Gregory M.D. Date of Service: 03/29/24 Procedure(s): ECG 12 lead Accession Number(s): [id number] cc: [facility] Test Date: 2024-03-29 Pat Name: JOSE MOSER Department: Room: - Gender: Female Manager It Training: : 1960 Requested By: ANGLE GODINEZ Order Number: [id number] Reading MD: ANGLE GODINEZ Measurements Intervals [place] Rate: 72 P: 55 SD: 164 QRS: 29 QRSD: 98 T: 33 QT: 374 QTc: 399 Interpretive Statements 1100 Sinus rhythm 9110 normal ECG Compared to ECG 02/28/2024 02:49:37 Left ventricular hypertrophy no longer present T-wave abnormality no longer present Electronically Signed On 03-30-2024 7:45:25 EDT by ANGLE GODINEZ Dictated By: Angle Godinez M.D. Signed By: 03/30/24 0745 DD/ 1403 TD/TT: Staff Training And Development Manager: MR mayra daniels Reviewed date:03/30/2024 11:38:06 AM Interpretation: Performing Lab: Notes/Report: Source Facility: [place] [address] [place] [address] Magnetic Resonance Report Signed Patient: JOSE MOSER MR#: [id number] : 1960 Acct:[id number] Age/Sex: 64 / F ADM Date: 03/29/24 Loc: MRI Attending Dr: Angle Godinez M.D. Ordering Physician: Angle Godinez M.D. Date of Service: 03/29/24 Procedure(s): MR shoulder RT w con Accession Number(s): [id number] cc: Angle Godinez M.D. [place] [id number] Patient Name: JOSE MOSER MRN: [facility]:[id number] date: 1960 Sex: F Assigned Patient Location: MRI Current Patient Location: ED.MAIN Accession/Order Number: [id number] Exam Date: 03/29/2024 10:00 Report Date: 03/29/2024 [...] Signed By: 03/29/24 1553 DD/ 155 TD/TT: Staff Training And Development Manager: MR shoulder LT w con Reviewed date:04/01/2024 07:43:07 PM Interpretation: Performing Lab: Notes/Report: Source Facility: [place] [address] Magnetic Resonance Report Signed Patient: JOSE MOSER MR#: [id number] : 1960 Acct:[id number] Age/Sex: 64 / F ADM Date: 03/29/24 Loc: MRI Attending Dr: Angle Godinez M.D. Ordering Physician: Angle Godinez M.D. Date of Service: 03/29/24 Procedure(s): MR shoulder LT w con Accession Number(s): [id number] cc: Angle Godinez M.D. [place] [address] Patient Name: JOSE MOSER MRN: [id number] date: 1960 Sex: F Assigned Patient Location: MRI Current Patient Location: MRI Accession/Order Number: [id number] Exam Date: 03/29/2024 10:00 Report Date: 03/29/2024 [...] Signed By: 04/01/24 1448 DD/ 1551 TD/TT: Staff Training And Development Manager: CBC AUTO DIFF Reviewed date:03/30/2024 11:38:06 AM Interpretation: Performing Lab: Notes/Report: [facility] , White Blood Count 5.2 4.0-11.0 10 [...] Performing Lab: see note - [facility] LB PROF CHEM 8 (BAS METB) Reviewed date:03/30/2024 11:38:06 AM Interpretation: Performing Lab: Notes/Report: [facility] , Sodium 133 136-145 mmol/L Potassium 3.8 [...] Performing Lab: see note ML - [facility] US venous doppler LE BI Reviewed date:03/30/2024 08:22:14 PM Interpretation: Performing Lab: Notes/Report: Source Facility: [facility] [place] [address] [place] [address] Ultrasound Report Signed Patient: JOSE MOSER MR#: [id number] : 1960 Acct:[id number] Age/Sex: 64 / F ADM Date: 03/29/24 Loc: MS 220-[address]: Angle Godinez M.D. Ordering Physician: Angle Godinez M.D. Date of Service: 03/30/24 Procedure(s): US venous doppler LE LT Accession Number(s): [id number] cc: Angle Godinez M.D. The [place] [id number] Patient Name: JOSE MSOER MRN: [id number] date: 1960 Sex: F Assigned Patient Location: MS Current Patient Location: MS Accession/Order Number: [id number] Exam Date: 03/30/2024 12:15 Report Date: 03/30/2024 [...] Signed By: 03/30/24 1544 DD/ 1541 TD/TT: Staff Training And Development Manager: CBC AUTO DIFF Reviewed date:04/01/2024 09:32:13 AM Interpretation: Performing Lab: Notes/Report: [facility] , White Blood Count 6.9 4.0-11.0 10 [...] Lab: see note ML - [facility] LB PROF CHEM 8 (BAS METB) Reviewed date:04/01/2024 09:32:13 AM Interpretation: Performing Lab: Notes/Report: [facility] , Sodium 135 136-145 mmol/L Potassium 3.9 [...] Performing Lab: see note ML - [facility] LB CBC AUTO DIFF Reviewed date:04/01/2024 09:32:13 AM Interpretation: Performing Lab: Notes/Report: [facility] , White Blood Count 6.0 4.0-11.0 10 [...] Performing Lab: see note ML - [facility] LB PROF CHEM 8 (BAS METB) Reviewed date:04/01/2024 09:32:13 AM Interpretation: Performing Lab: Notes/Report: [facility] , Sodium 131 136-145 mmol/L Potassium 4.2 [...] Lab: see note ML - [facility] LB PROF 14(COMP METB) Reviewed date:04/06/2024 03:22:17 PM Interpretation: Performing Lab: Notes/Report: [facility] , Sodium 133 136-145 mmol/L Potassium 3.8 [...] Lab: see note ML - [facility] LB Osmolality Reviewed date:04/11/2024 12:49:17 PM Interpretation: Performing Lab: Notes/Report: [facility] , Osmolality TNP . mOsmol/kg Test not performed. Insufficient specimen to perform or complete analysis. CONTACTED GUNNAR AT YOUR FACILITY ON 04-11-2024 Performing Lab: see note LC - [facility] LB CBC AUTO DIFF Reviewed date:04/16/2024 04:01:23 PM Interpretation: Performing Lab: Notes/Report: [facility] , White Blood Count 7.7 4.0-11.0 10 [...] Lab: see note ML - [facility] LB PROF 14(COMP METB) Reviewed date:04/16/2024 04:01:23 PM Interpretation: Performing Lab: Notes/Report: [facility] , Sodium 138 136-145 mmol/L Potassium 4.5 [...] Lab: see note ML - [facility] LB CBC AUTO DIFF Reviewed date:05/14/2024 08:03:43 PM Interpretation: Performing Lab: Notes/Report: [facility] , White Blood Count 6.5 4.0-11.0 10 [...] Lab: see note ML - [facility] LB PROF 14(COMP METB) Reviewed date:05/22/2024 05:24:02 PM Interpretation: Performing Lab: Notes/Report: [facility] , Sodium 135 136-145 mmol/L Potassium 4.5 [...] Lab: see note ML - [facility] LB CBC AUTO DIFF Reviewed date:05/28/2024 08:26:27 PM Interpretation: Performing Lab: Notes/Report: [facility] , White Blood Count 6.8 4.0-11.0 10 [...] Lab: see note ML - [facility] LB PROF 14(COMP METB) Reviewed date:05/28/2024 08:26:27 PM Interpretation: Performing Lab: Notes/Report: [facility] , Sodium 135 136-145 mmol/L Potassium 4.4 [...] Lab: see note ML - [facility] LB PROF 14(COMP METB) Reviewed date:06/12/2024 03:53:07 PM Interpretation: Performing Lab: Notes/Report: [facility] , Sodium 136 136-145 mmol/L Potassium 4.5 [...] Lab: see note ML - [facility] LB PROF 14(COMP METB) Reviewed date:07/18/2024 05:32:07 PM Interpretation: Performing Lab: Notes/Report: [facility] , Sodium 137 136-145 mmol/L Potassium 4.4 [...] Lab: see note ML - [facility] LB Osmolality Reviewed date:07/21/2024 12:00:58 PM Interpretation: Performing Lab: Notes/Report: [facility] , Osmolality 290 280-301 mOsmol/kg Performed at: [address] [id number] Scroll Saw Operator: Nicolas Arenas MD, Phone: [phone] Performing Lab: [facility] - [facility] Reviewed date:07/29/2024 07:44:52 PM Interpretation: Performing Lab: Notes/Report: [facility] , Osmolality 290 280-301 mOsmol/kg Performed at: [address] [id number] Scroll Saw Operator: Nicolas Arenas MD, Phone: [phone] Performing Lab: see note [facility] PROF 14(COMP METB) Reviewed date:08/04/2024 11:09:08 AM Interpretation: Performing Lab: Notes/Report: [facility] , Sodium 138 136-145 mmol/L Potassium [...] Performing Lab: see note - [facility] LB Osmolality Reviewed date:08/05/2024 01:00:46 PM Interpretation: Performing Lab: Notes/Report: [facility] , Osmolality 297 280-301 mOsmol/kg Performed at: [address] [id number] Scroll Saw Operator: Nicolas Arenas MD, Phone: [phone] Performing Lab: see note - [facility] LB Osmolality Reviewed date:08/28/2024 09:03:48 PM Interpretation: Performing Lab: Notes/Report: [facility] , Osmolality 290 280-301 mOsmol/kg Performed at: [address] [id number] Scroll Saw Operator: Nicolas Arenas MD, Phone: [phone] Performing Lab: see note - [facility] LB CBC AUTO DIFF Reviewed date:09/01/2024 09:49:36 AM Interpretation: Performing Lab: Notes/Report: [facility] , White Blood Count 6.7 4.0-11.0 10 [...] Lab: see note ML - [facility] LB Osmolality Reviewed date:09/03/2024 09:28:43 AM Interpretation: Performing Lab: Notes/Report: [facility] , Osmolality 286 280-301 mOsmol/kg Performed at: [facility] [address] [id number] Scroll Saw Operator: Nicolas Arenas MD, Phone: [phone] Performing Lab: see note - [facility] LB PROF 14(COMP METB) Reviewed date:09/05/2024 06:43:23 PM Interpretation: Performing Lab: Notes/Report: [facility] , Sodium 134 136-145 mmol/L Potassium 3.8 [...] Lab: see note ML - [facility] LB PROF 14(COMP METB) Reviewed date:09/11/2024 05:38:12 PM Interpretation: Performing Lab: Notes/Report: [facility] , Sodium 136 136-145 mmol/L Potassium 3.5 [...] Lab: see note ML - [facility] LB Osmolality Reviewed date:09/16/2024 08:39:55 PM Interpretation: Performing Lab: Notes/Report: [facility] , Osmolality 292 280-301 mOsmol/kg Performed at: - [facility] [id number] Scroll Saw Operator: Nicolas Arenas MD, Phone: [phone] Performing Lab: see note - [facility] LB Troponin I High Sensitivity Reviewed date:09/16/2024 08:39:55 PM Interpretation: Performing Lab: Notes/Report: [facility] , Troponin I High Sensitivity 15.1 4.0-51.3 pg/m L CUT-OFF POINTS HAVE BEEN ESTABLISHED BASED ON THE FOURTH UNIVERSAL DEFINITION OF MYOCARDIAL INFARCTION. THE UPPER REFERENCE LIMIT (URL) OF TROPONIN, DEFINED THE 99TH PERCENTILE OF cTnI DISTRIBUTION IN A REFERENCE POPULATION, HAS BEEN CONFIRMED THE DECISION THRESHOLD FOR DE DIAGNOSIS. 99TH PERCENTILE = 51.4 PG/ML NOTE: HIGH-SENSITIVITY TROPONIN ASSAY IS NOT INTENDED TO BE USED IN ISOLATION BUT SHOULD BE INTERPRETED IN CONJUNCTION WITH OTHER DIAGNOSTIC AND CLINICAL INFORMATION. Performing Lab: see note ML - [facility] LB Venous Blood Gas Reviewed date:09/16/2024 08:39:55 PM Interpretation: Performing Lab: Notes/Report: [facility] , pH VBG 7.346 7.330-7.430 PCO2 VBG 47.8 40.0-52.0 mmHg Performing Lab: see note - [facility] LB SARS-CoV-2 Ag* Reviewed date:09/15/2024 07:34:53 PM Interpretation: Performing Lab: Notes/Report: [facility] , SARS-CoV-2 Ag NEGATIVE NEGATIVE This test [...] Performing Lab: see note ML - [facility] LB ECG 12 lead Reviewed date:09/16/2024 08:39:55 PM Interpretation: Performing Lab: Notes/Report: Source Facility: [facility] [place] [address] [place] [address] Electrocardiograph Report Signed Patient: JOSE MOSER MR#: [id number] : 1960 Acct:[id number] Age/Sex: 64 / F ADM Date: 09/15/24 Loc: MS 218-[address]: Angle Godinez M.D. Ordering Physician: Jade Maya Date of Service: 09/15/24 Procedure(s): ECG 12 lead Accession Number(s): [id number] cc: [facility] Test Date: 2024-09-15 Pat Name: JOSE MOSER Department: Room: - Gender: Female Manager It Training: : 1960 Requested By: 0929 Order Number: [id number] Renee MD: BENJIE DANG M.D. Measurements Intervals [place] Rate: 84 P: 90 SD: 142 QRS: -4 QRSD: 98 T: -6 QT: 384 QTc: 424 Interpretive Statements NORMAL SINUS RHYTHM Minimal voltage criteria for LVH, may be normal variant ARTIFACT IN LEAD(S) Borderline ECG Compared to ECG 03/29/2024 14:03:36 No significant change Electronically Signed On 09-16-2024 7:08:51 EDT by BENJIE DANG M.D. Dictated By: BENJIE DANG Signed By: 09/16/24 0709 DD/ 19 TD/TT: Staff Training And Development Manager: MAGNESIUM Reviewed date:09/16/2024 08:39:55 PM Interpretation: Performing Lab: Notes/Report: Comment use blood this am? [facility] , Magnesium 2.1 1.8-2.4 mg/dL Performing Lab: see note - [facility] LB PROF CHEM 8 (BAS METB) Reviewed date:09/16/2024 08:39:55 PM Interpretation: Performing Lab: Notes/Report: [facility] , Sodium 137 136-145 mmol/L Potassium 3.5 [...] Performing Lab: see note ML - [facility] LB CBC no Diff (Hemogram) Reviewed date:09/16/2024 08:39:55 PM Interpretation: Performing Lab: Notes/Report: [facility] , White Blood Count 3.6 4.0-11.0 10 [...] fL Performing Lab: see note ML - [facility] LB CBC AUTO DIFF Reviewed date:09/18/2024 10:55:14 AM Interpretation: Performing Lab: Notes/Report: [facility] , White Blood Count 3.3 4.0-11.0 10 [...] Lab: see note ML - [facility] LB PROF CHEM 8 (BAS METB) Reviewed date:09/18/2024 10:55:14 AM Interpretation: Performing Lab: Notes/Report: [facility] , Sodium 138 136-145 mmol/L Potassium 3.6 [...] mg/dL Performing Lab: see note ML - [facility] PROF 14(COMP METB) Reviewed date:09/29/2024 03:19:39 PM Interpretation: Performing Lab: Notes/Report: [facility] , Sodium 131 136-145 mmol/L Potassium 4.3 [...] 0.8 Performing Lab: see note ML - [facility] FERRITIN Reviewed date:09/29/2024 03:19:39 PM Interpretation: Performing Lab: Notes/Report: [facility] , Ferritin 141.0 8.0-252.0 ng/mL Performing Lab: see note ML - [facility] CBC AUTO DIFF Reviewed date:10/07/2024 08:19:45 PM Interpretation: Performing Lab: Notes/Report: [facility] , White Blood Count 7.7 4.0-11.0 10 [...] Performing Lab: see note ML - [facility] LB PROF 14(COMP METB) Reviewed date:10/07/2024 08:19:45 PM Interpretation: Performing Lab: Notes/Report: [facility] , Sodium 133 136-145 mmol/L Potassium 4.3 [...] Performing Lab: see note - [facility] LB Osmolality Reviewed date:10/17/2024 01:08:03 PM Interpretation: Performing Lab: Notes/Report: [facility] , Osmolality 294 280-301 mOsmol/kg Performed at: - [facility] [id number] Scroll Saw Operator: Nicolas Arenas MD, Phone: [phone] Performing Lab: see note - [facility] LB CBC AUTO DIFF Reviewed date:10/17/2024 01:08:03 PM Interpretation: Performing Lab: Notes/Report: [facility] , White Blood Count 5.9 4.0-11.0 [...] Performing Lab: see note - [facility] LB PROF CHEM 8 (BAS METB) Reviewed date:10/17/2024 01:08:03 PM Interpretation: Performing Lab: Notes/Report: [facility] , Sodium 141 136-145 mmol/L Potassium 3.8 3.5-5.1 mmol/L Chloride 104 98-107 mmol/L Carbon Dioxide 29.4 21.0-32.0 mmol/L Anion Gap 11.4 Glucose 105 74-106 mg/dL Blood Urea Nitrogen 64.0 7.0-18.0 mg/dL Creatinine 1.80 0.55-1.02 mg/dL Estimated GFR ( Catarina 35 >=60 mL/min/1.73m 2 Estimated GFR (Non- Oma 29 >=60 mL/min/1.73m 2 BUN Creatinine Ratio 35.6 Calcium 8.2 8.5-10.1 mg/dL Performing Lab: see note - [facility] LB CBC AUTO DIFF Reviewed date:10/18/2024 08:57:23 AM Interpretation: Performing Lab: Notes/Report: [facility] , White Blood Count 5.9 4.0-11.0 10 [...] Performing Lab: see note - [facility] LB PROF CHEM 8 (BAS METB) Reviewed date:10/18/2024 08:57:23 AM Interpretation: Performing Lab: Notes/Report: [facility] , Sodium 139 136-145 mmol/L Potassium 3.9 [...] Performing Lab: see note - [facility] LB PROF 14(COMP METB) Reviewed date:10/22/2024 03:59:28 PM Interpretation: Performing Lab: Notes/Report: [facility] , Sodium 133 136-145 mmol/L Potassium 4.6 [...] Lab: see note ML - [facility] LB Osmolality Reviewed date:10/24/2024 12:21:56 PM Interpretation: Performing Lab: Notes/Report: [facility] , Osmolality 290 280-301 mOsmol/kg Performed at: [facility] [id number] Scroll Saw Operator: Nicolas Arenas MD, Phone: [phone] Performing Lab: see note - [facility] LB PROF 14(COMP METB) Reviewed date:11/12/2024 08:06:12 PM Interpretation: Performing Lab: Notes/Report: [facility] , Sodium 136 136-145 mmol/L Potassium [...] Lab: see note ML - [facility] LB CBC AUTO DIFF Reviewed date:11/26/2024 04:03:27 PM Interpretation: Performing Lab: Notes/Report: [facility] , White Blood Count 7.4 4.0-11.0 10 [...] 3/uL Lymphocytes Absolute Auto 1.0 1.2-3.8 10 3/u L Monocytes Absolute Auto 0.8 0.3-0.8 10 3/uL Eosinophils Absolute Auto 0.1 0.0-0.7 10 3/uL Basophils Absolute Auto 0.0 0.0-0.1 10 3/uL Immature Granulocytes Abs Auto 0.04 0.00-0.03 10 3/uL Performing Lab: see note ML - [facility] LB PROF 14(COMP METB) Reviewed date:11/26/2024 04:03:27 PM Interpretation: Performing Lab: Notes/Report: [facility] , Sodium 134 136-145 mmol/L Potassium 4.8 [...] Lab: see note ML - [facility] LB CBC AUTO DIFF Reviewed date:01/02/2025 06:15:12 PM Interpretation: Performing Lab: Notes/Report: [facility] , White Blood Count 5.7 4.0-11.0 [...] Lab: see note ML - [facility] LB FERRITIN Reviewed date:01/02/2025 06:15:12 PM Interpretation: Performing Lab: Notes/Report: [facility] , Ferritin 181.0 8.0-252.0 ng/mL Performing Lab: see note - [facility] LB IRON AND TIBC Reviewed date:01/02/2025 06:15:12 PM Interpretation: Performing Lab: Notes/Report: [facility] , Iron 100.0 50.0-170.0 ug/dL Total Iron Binding Capacity 259.0 250.0-450.0 u g/dL Percent Iron Saturation 38.6 Performing Lab: see note ML - [facility] LB PROF 14(COMP METB) Reviewed date:01/02/2025 06:15:12 PM Interpretation: Performing Lab: Notes/Report: [facility] , Sodium 131 136-145 mmol/L Potassium 4.0 [...] Lab: see note ML - [facility] LB MAGNESIUM Reviewed date:01/02/2025 06:15:12 PM Interpretation: Performing Lab: Notes/Report: [facility] , Magnesium 2.9 1.8-2.4 mg/dL Performing Lab: see note ML - [facility] LB MICROALB CREAT RATIO RANDOM Reviewed date:01/02/2025 06:15:12 PM Interpretation: Performing Lab: Notes/Report: [facility] , Microalbumin Urine Random <1.3 <=30.0 mg/dL Creatinine Urine Random 34.82 20.00-300.00 mg/d L Performing Lab: see note ML - [facility] LB PHOSPHORUS Reviewed date:01/02/2025 06:15:12 PM Interpretation: Performing Lab: Notes/Report: [facility] , Phosphorus 5.2 2.6-4.7 mg/dL Performing Lab: see note ML - [facility] LB PROF 14(COMP METB) Reviewed date:01/02/2025 06:15:12 PM Interpretation: Performing Lab: Notes/Report: [facility] , Sodium 135 136-145 mmol/L Potassium 4.8 [...] Performing Lab: see note - [facility] LB UA RANDOM Reviewed date:01/02/2025 06:15:12 PM Interpretation: Performing Lab: Notes/Report: [facility] , Color Urine LT. YELLOW YELLOW Clarity Urine CLEAR CLEAR Specific [place] Urine <=1.005 1.005-1.025 pH Urine 7.0 5.0-9.0 Protein Urine NEGATIVE NEG/TRACE mg/dL Glucose Urine UA NEGATIVE NEGATIVE mg/dL Bilirubin Urine NEGATIVE NEGATIVE [place] Urine NEGATIVE NEGATIVE mg/dL Blood Urine TRACE-I NEGATIVE Nitrite Urine NEGATIVE NEGATIVE Urobilinogen Urine 0.2 0.2-1.0 EU/dL Leukocyte Esterase Urine TRACE NEGATIVE Performing Lab: see note - [facility] URIC ACID SERUM Reviewed date:01/02/2025 06:15:12 PM Interpretation: Performing Lab: Notes/Report: [facility] , Uric Acid 5.8 2.6-6.0 mg/dL Performing Lab: see note - [facility] LB URINE T PROTEIN CREAT RATIO Reviewed date:01/02/2025 06:15:12 PM Interpretation: Performing Lab: Notes/Report: [facility] , Total Protein Urine Random 11.2 <=11.9 mg/dL Protein Creatinine Ratio Urine 0.32 Performing Lab: see note [facility] LB Osmolality Reviewed date:01/06/2025 12:29:14 PM Interpretation: Performing Lab: Notes/Report: [facility] , Osmolality 275 280-301 mOsmol/kg Performed at: - [facility] [id number] Scroll Saw Operator: Nicolas Arenas MD, Phone: [phone] Performing Lab: see note - [facility] LB CBC AUTO DIFF Reviewed date:01/21/2025 02:22:57 PM Interpretation: Performing Lab: Notes/Report: [facility] , White Blood Count 4.3 4.0-11.0 10 [...] Performing Lab: see note - [facility] LB Osmolality Reviewed date:01/26/2025 07:39:37 PM Interpretation: Performing Lab: Notes/Report: [facility] , Osmolality 286 280-301 mOsmol/kg Performed at: [facility] [address] [id number] Scroll Saw Operator: Nicolas Arenas MD, Phone: [phone] Performing Lab: see note - [facility] LB CT abdomen pelvis w con Reviewed date:01/21/2025 02:22:57 PM Interpretation: Performing Lab: Notes/Report: Source Facility: [facility] [place] [address] [place] [address] CT Scan Report Signed Patient: JOSE MOSER MR#: [id number] : 1960 Acct:[id number] Age/Sex: 64 / F ADM Date: 01/21/25 Loc: CT Attending Dr: Angle Godinez M.D. Ordering Physician: Angle Godinez M.D. Date of Service: 01/21/25 Procedure(s): CT abdomen pelvis w con Accession Number(s): [id number] cc: Angel Godinez M.D. [address] [address] Patient Name: JOSE MOSER MRN: [facility]:[id number] date: 1960 Sex: F Assigned Patient Location: CT Current Patient Location: CT Accession/Order Number: [id number] Exam Date: 01/21/2025 11:45 Report Date: 01/21/2025 [...] Brunner M.D. 01/21/2025 11:54 AM Dictation Location: [place] [address] Electronically authenticated by: [id number] Y Date: 01/21/2025 11:54 Dictated By: Alysia Brunner M.D. Signed By: 01/21/25 1156 DD/ 1154 TD/TT: Staff Training And Development Manager: XR lumbar spine 2-3V Reviewed date:01/27/2025 06:31:59 PM Interpretation: Performing Lab: Notes/Report: Source Facility: [place] [address] XRay Report Signed Patient: JOSE MOSER MR#: [id number] : 1960 Acct:[id number] Age/Sex: 64 / F ADM Date: 01/27/25 Loc: RAD Attending Dr: Angle Godinez M.D. Ordering Physician: Angle Godinez M.D. Date of Service: 01/27/25 Procedure(s): XR lumbar spine 2-3V Accession Number(s): [id number] cc: Angle Godinez M.D. [place] [address] Patient Name: JOSE MOSER MRN: [id number] date: 1960 Sex: F Assigned Patient Location: [facility] Current Patient Location: [facility] Accession/Order Number: [id number] Exam Date: 01/27/2025 14:32 Report Date: 01/27/2025 [...] Jr., D.O. 01/27/2025 2:35 PM Dictation Location: [place] [address] Electronically authenticated by: [id number] Y Date: 01/27/2025 14:35 Dictated By: Chris Puri M.D. Signed By: 01/27/25 1438 DD/ 34 TD/TT: Staff Training And Development Manager: CBC AUTO DIFF Reviewed date:02/04/2025 04:08:34 PM Interpretation: Performing Lab: Notes/Report: The [facility] , White Blood Count 5.1 4.0-11.0 10 [...] Lab: see note ML - [facility] LB PROF 14(COMP METB) Reviewed date:02/04/2025 04:08:34 PM Interpretation: Performing Lab: Notes/Report: The [facility] , Sodium 133 136-145 mmol/L Potassium 4.4 [...] Lab: see note ML - [facility] LB Osmolality Reviewed date:02/07/2025 08:30:33 AM Interpretation: Performing Lab: Notes/Report: [facility] , Osmolality 279 280-301 mOsmol/kg Performed at: - [facility] [id number] Scroll Saw Operator: Nicolas Arenas MD, Phone: [phone] Performing Lab: see note - [facility] LB CBC AUTO DIFF Reviewed date:03/11/2025 02:38:46 PM Interpretation: Performing Lab: Notes/Report: [facility] , White Blood Count 7.0 4.0-11.0 10 3/uL Red Blood Count 3.54 4.20-5.40 10 6/uL Hemoglobin 10.8 12.0-16.0 g/dL Hematocrit 34.1 36.0-48.0 % Mean Corpuscular Volume 96.3 81.0-99.0 fL Mean Corpuscular Hemoglobin 30.5 26.7-34.0 pg Mean Corpuscular HGB Conc 31.7 29.9-35.2 g/dL Red Cell Distribution Width 15.6 11.0-15.0 % Platelet Count 196 150-450 10 3/uL Mean Platelet Volume 9.6 9.5-13.5 fL Neutrophils Percent Auto 69.1 43.0-75.0 % Lymphocytes Percent Auto 22.7 20.5-60.0 % Monocytes Percent Auto 5.9 1.7-12.0 % Eosinophils Percent Auto 1.6 0.9-7.0 % Basophils Percent Auto 0.6 0.2-2.0 % Immature Granulocytes Pct Auto 0.1 0.0-0.5 % Neutrophils Absolute Auto 4.8 1.4-6.5 10 3/uL Lymphocytes Absolute Auto 1.6 1.2-3.8 10 3/uL Monocytes Absolute Auto 0.4 0.3-0.8 10 3/uL Eosinophils Absolute Auto 0.1 0.0-0.7 10 3/uL Basophils Absolute Auto 0.0 0.0-0.1 10 3/uL Immature Granulocytes Abs Auto 0.01 0.00-0.03 10 3/uL Performing Lab: see note ML - [facility] LB PROF 14(COMP METB) Reviewed date:03/11/2025 03:05:23 PM Interpretation: Performing Lab: Notes/Report: [facility] , Sodium 136 136-145 mmol/L Potassium 5.1 3.5-5.1 mmol/L Chloride 106 98-107 mmol/L Carbon Dioxide 19.7 21.0-32.0 mmol/L Anion Gap 15.4 Glucose 83 74-106 mg/dL Blood Urea Nitrogen 29.0 7.0-18.0 mg/dL Creatinine 1.84 0.55-1.02 mg/dL Estimated GFR ( Catarina 34 >=60 mL/min/1.73m 2 Estimated GFR (Non- Oma 28 >=60 mL/min/1.73m 2 BUN Creatinine Ratio 15.8 Calcium 8.1 8.5-10.1 mg/dL Bilirubin Total 0.2 0.2-1.0 mg/dL Aspartate Amino Transferase 28 15-37 U/L Alanine Aminotransferase 29 14-59 U/L Alkaline Phosphatase 176 46-116 U/L Total Protein 7.2 6.4-8.2 g/dL Albumin Level 3.6 3.4-5.0 g/dL Globulin 3.6 Albumin Globulin Ratio 1.0 Performing Lab: see note ML - [facility] LB Osmolality Reviewed date:03/17/2025 02:33:35 PM Interpretation: Performing Lab: Notes/Report: [facility] , Osmolality 284 280-301 mOsmol/kg Performed at: - [facility] [id number] Scroll Saw Operator: Nicolas Arenas MD, Phone: [phone] Performing Lab: see note - [facility] LB CBC AUTO DIFF Reviewed date:03/19/2024 07:55:12 PM Interpretation: Performing Lab: Notes/Report: [facility] , White Blood Count 6.6 4.0-11.0 [...] Lab: see note ML - [facility] LB PROF 14(COMP METB) Reviewed date:03/19/2024 07:55:12 PM Interpretation: Performing Lab: Notes/Report: [facility] , Sodium 133 136-145 mmol/L Potassium 4.1 [...] Performing Lab: see note ML - [facility] LB CBC AUTO DIFF Reviewed date:03/27/2024 09:16:56 PM Interpretation: Performing Lab: Notes/Report: [facility] , White Blood Count 7.1 4.0-11.0 10 [...] Lab: see note ML - [facility] LB PROF 14(COMP METB) Reviewed date:03/27/2024 09:16:56 PM Interpretation: Performing Lab: Notes/Report: [facility] , Sodium 132 136-145 mmol/L Potassium 4.3 [...] Performing Lab: see note ML - [facility] LB CBC AUTO DIFF Reviewed date:03/30/2024 11:38:06 AM Interpretation: Performing Lab: Notes/Report: [facility] , White Blood Count 6.9 4.0-11.0 10 [...] Performing Lab: see note ML - [facility] LB FL guided needle placement Reviewed date:03/30/2024 11:38:06 AM Interpretation: Performing Lab: Notes/Report: Source Facility: [facility] [place] [address] [place] [address] Fluoroscopy Report Signed Patient: JOSE MOSER MR#: [id number] : 1960 Acct:[id number] Age/Sex: 64 / F ADM Date: 03/29/24 Loc: MRI Attending Dr: Angle Godinez M.D. Ordering Physician: Angle Godinez M.D. Date of Service: 03/29/24 Procedure(s): FL guided needle placement Accession Number(s): [id number] cc: Angle Godinez M.D. The [place] [address] Patient Name: JOSE MOSER MRN: [facility]:[id number] date: 1960 Sex: F Assigned Patient Location: MRI Current Patient Location: MRI Accession/Order Number: [id number] Exam Date: 03/29/2024 08:45 Report Date: 03/29/2024 [...] Signed By: 03/29/24 1020 DD/ 1018 TD/TT: Staff Training And Development Manager: SALVADOR chest 1V Reviewed date:03/30/2024 11:38:06 AM Interpretation: Performing Lab: Notes/Report: Source Facility: [place] [address] [address] XRay Report Signed Patient: JOSE MOSER MR#: [id number] : 1960 Acct:[id number] Age/Sex: 64 / F ADM Date: 03/29/24 Loc: ER Attending Dr: Ordering Physician: Teressa Gregory M.D. Date of Service: 03/29/24 Procedure(s): XR chest 1V Accession Number(s): [id number] cc: Angle Godinez M.D.; Teressa Gregory M.D. The [place] [address] Patient Name: JOSE MOSER MRN: [id number] date: 1960 Sex: F Assigned Patient Location: ED.MAIN Current Patient Location: ER Accession/Order Number: [id number] Exam Date: 03/29/2024 14:07 Report Date: 03/29/2024 [...] Davenport M.D. Signed By: 03/29/24 1445 DD/ 144 TD/TT: Staff Training And Development Manager: KIARA arthrogram shoulder Reviewed date:03/30/2024 11:38:06 AM Interpretation: Performing Lab: Notes/Report: Source Facility: [place] [address] Fluoroscopy Report Signed Patient: JOSE MOSER MR#: [id number] : 1960 Acct:[id number] Age/Sex: 64 / F ADM Date: 03/29/24 Loc: MRI Attending Dr: Angle Godinez M.D. Ordering Physician: Angle Godinez M.D. Date of Service: 03/29/24 Procedure(s): FL arthrogram shoulder Accession Number(s): [id number] cc: Angle Godinez M.D. [place] [address] Patient Name: JOSE MOSER MRN: [id number] date: 1960 Sex: F Assigned Patient Location: MRI Current Patient Location: MRI Accession/Order Number: [id number] Exam Date: 03/29/2024 08:45 Report Date: 03/29/2024 [...] Signed By: 03/29/24 1020 DD/ 1018 TD/TT: Staff Training And Development Manager: CINDY RANDOM W or MICROSCOPIC Reviewed date:03/30/2024 11:38:06 AM Interpretation: Performing Lab: Notes/Report: The [facility] , Color Urine LT. YELLOW YELLOW Clarity Urine CLEAR CLEAR Specific [place] Urine 1.010 1.005-1.025 pH Urine 6.0 5.0-9.0 [...] NO Performing Lab: see note ML - [facility] LB CBC AUTO DIFF Reviewed date:04/06/2024 03:22:17 PM Interpretation: Performing Lab: Notes/Report: [facility] , White Blood Count 7.1 4.0-11.0 10 [...] Lab: see note ML - [facility] LB Osmolality Reviewed date:04/24/2024 06:21:05 PM Interpretation: Performing Lab: Notes/Report: [facility] , Osmolality 288 280-301 mOsmol/kg Performed at: [facility] [id number] Scroll Saw Operator: Nicolas Arenas MD, Phone: [phone] Performing Lab: see note - [facility] LB CBC AUTO DIFF Reviewed date:04/28/2024 10:46:46 AM Interpretation: Performing Lab: Notes/Report: [facility] , White Blood Count 6.8 4.0-11.0 [...] Performing Lab: see note - [facility] LB PROF 14(COMP METB) Reviewed date:04/28/2024 10:46:46 AM Interpretation: Performing Lab: Notes/Report: [facility] , Sodium 134 136-145 mmol/L Potassium [...] Lab: see note ML - [facility] LB Osmolality Reviewed date:05/08/2024 07:33:10 PM Interpretation: Performing Lab: Notes/Report: [facility] , Osmolality 288 280-301 mOsmol/kg Performed at: - [facility] [id number] Scroll Saw Operator: Nicolas Arenas MD, Phone: [phone] Performing Lab: see note LC - [facility] LB FERRITIN Reviewed date:04/28/2024 10:46:46 AM Interpretation: Performing Lab: Notes/Report: [facility] , Ferritin 20.0 8.0-252.0 ng/mL Performing Lab: see note - [facility] LB IRON AND TIBC Reviewed date:04/28/2024 10:46:46 AM Interpretation: Performing Lab: Notes/Report: The [facility] , Iron 48.0 50.0-170.0 ug/dL Total Iron Binding Capacity 362.0 250.0-450.0 u g/dL Percent Iron Saturation 13.3 Performing Lab: see note - [facility] LB CBC AUTO DIFF Reviewed date:05/12/2024 01:25:34 PM Interpretation: Performing Lab: Notes/Report: [facility] , White Blood Count 7.5 4.0-11.0 10 [...] Lab: see note ML - [facility] LB PROF 14(COMP METB) Reviewed date:05/12/2024 01:25:34 PM Interpretation: Performing Lab: Notes/Report: [facility] , Sodium 136 136-145 mmol/L Potassium 3.6 [...] Performing Lab: see note ML - [facility] LB Osmolality Reviewed date:07/03/2024 06:52:37 PM Interpretation: Performing Lab: Notes/Report: [facility] , Osmolality 285 mOsmol/kg Reference Interval: 280-301 mOsmol/kg Performing Labs 01: BN - [facility] [address] [id number] Dir: Nicolas Arenas MD For inquiries, the physician may contact Branch: [phone] Lab: [phone] Performing Lab: see note LC - [facility] LB PROF 14(COMP METB) Reviewed date:05/14/2024 08:03:43 PM Interpretation: Performing Lab: Notes/Report: [facility] , Sodium 134 136-145 mmol/L Potassium 4.4 [...] Lab: see note ML - [facility] LB Osmolality Reviewed date:05/20/2024 02:02:21 PM Interpretation: Performing Lab: Notes/Report: [facility] , Osmolality 286 280-301 mOsmol/kg Performed at: [facility] [address] [id number] Scroll Saw Operator: Nicolas Arenas MD, Phone: [phone] Performing Lab: see note - [facility] LB CBC AUTO DIFF Reviewed date:05/22/2024 05:24:02 PM Interpretation: Performing Lab: Notes/Report: [facility] , White Blood Count 5.5 4.0-11.0 [...] Lab: see note ML - [facility] LB Osmolality Reviewed date:05/26/2024 12:15:00 PM Interpretation: Performing Lab: Notes/Report: [facility] , Osmolality 288 280-301 mOsmol/kg Performed at: [facility] [address] [id number] Scroll Saw Operator: Nicolas Arenas MD, Phone: [phone] Performing Lab: see note - [facility] LB CBC AUTO DIFF Reviewed date:07/02/2024 03:26:48 PM Interpretation: Performing Lab: Notes/Report: [facility] , White Blood Count 4.2 4.0-11.0 [...] Lab: see note ML - [facility] LB PROF 14(COMP METB) Reviewed date:07/02/2024 03:26:48 PM Interpretation: Performing Lab: Notes/Report: [facility] , Sodium 137 136-145 mmol/L Potassium 3.2 [...] Lab: see note ML - [facility] LB CBC AUTO DIFF Reviewed date:07/09/2024 03:58:21 PM Interpretation: Performing Lab: Notes/Report: [facility] , White Blood Count 9.9 4.0-11.0 10 [...] Performing Lab: see note ML - [facility] LB PROF 14(COMP METB) Reviewed date:07/09/2024 03:58:21 PM Interpretation: Performing Lab: Notes/Report: [facility] , Sodium 134 136-145 mmol/L Potassium 4.8 [...] Lab: see note ML - [facility] LB Osmolality Reviewed date:07/12/2024 10:41:16 AM Interpretation: Performing Lab: Notes/Report: [facility] , Osmolality 285 280-301 mOsmol/kg Performed at: [facility] [address] [id number] Scroll Saw Operator: Nicolas Arenas MD, Phone: [phone] Performing Lab: see note - [facility] LB CBC AUTO DIFF Reviewed date:07/18/2024 12:12:59 PM Interpretation: Performing Lab: Notes/Report: [facility] , White Blood Count 5.7 4.0-11.0 [...] Performing Lab: see note ML - [facility] LB CBC AUTO DIFF Reviewed date:07/27/2024 04:09:36 PM Interpretation: Performing Lab: Notes/Report: [facility] , White Blood Count 6.5 4.0-11.0 10 [...] Lab: see note ML - [facility] LB PROF 14(COMP METB) Reviewed date:07/27/2024 04:09:36 PM Interpretation: Performing Lab: Notes/Report: [facility] , Sodium 136 136-145 mmol/L Potassium 4.4 [...] Lab: see note ML - [facility] LB CBC AUTO DIFF Reviewed date:08/04/2024 11:09:08 AM Interpretation: Performing Lab: Notes/Report: [facility] , White Blood Count 6.4 4.0-11.0 10 [...] Performing Lab: see note ML - [facility] LB XR HAND LT MIN 3V Reviewed date:08/05/2024 01:00:46 PM Interpretation: Performing Lab: Notes/Report: Source Facility: [facility] [place] [address] [place] [address] XRay Report Signed Patient: JOSE MOSER MR#: [id number] : 1960 Acct:[id number] Age/Sex: 64 / F ADM Date: 08/02/24 Loc: [facility] Attending Dr: Angle Godinez M.D. Ordering Physician: Angle Godinez M.D. Date of Service: 08/02/24 Procedure(s): XR hand LT min 3V Accession Number(s): [id number] cc: Angle Godinez M.D. [place] [address] Patient Name: JOSE MOSER MRN: [id number] date: 1960 Sex: F Assigned Patient Location: [facility] Current Patient Location: Accession/Order Number: [id number] Exam Date: 08/02/2024 12:30 Report Date: 08/05/2024 [...] Dictated By: Carlos Alcala M.D. Signed By: 08/05/2455 DD/ TD/TT: Staff Training And Development Manager: CBC AUTO DIFF Reviewed date:08/25/2024 12:31:05 PM Interpretation: Performing Lab: Notes/Report: [facility] , White Blood Count 6.9 4.0-11.0 10 [...] Performing Lab: see note ML - [facility] LB PROF 14(COMP METB) Reviewed date:08/25/2024 12:31:05 PM Interpretation: Performing Lab: Notes/Report: [facility] , Sodium 131 136-145 mmol/L Potassium 4.2 [...] Lab: see note ML - [facility] LB PROF 14(COMP METB) Reviewed date:09/01/2024 09:49:36 AM Interpretation: Performing Lab: Notes/Report: [facility] , Sodium 135 136-145 mmol/L Potassium 3.8 [...] Lab: see note ML - [facility] LB CBC AUTO DIFF Reviewed date:09/05/2024 06:43:23 PM Interpretation: Performing Lab: Notes/Report: [facility] , White Blood Count 6.0 4.0-11.0 10 [...] Lab: see note ML - [facility] LB Osmolality Reviewed date:09/08/2024 02:59:02 PM Interpretation: Performing Lab: Notes/Report: [facility] , Osmolality 290 280-301 mOsmol/kg [address] [place], [place] [id number] Scroll Saw Operator: Nicolas Arenas MD, Phone: [phone] [facility] Performing Lab: see note - [facility] LB CBC AUTO DIFF Reviewed date:09/11/2024 05:38:12 PM Interpretation: Performing Lab: Notes/Report: [facility] , White Blood Count 4.8 4.0-11.0 10 [...] Performing Lab: see note - [facility] LB BNP Reviewed date:09/16/2024 08:39:55 PM Interpretation: Performing Lab: Notes/Report: [facility] , NT Pro B Type Natriuretic Pept 749.0 <=900.0 pg/mL Performing Lab: see note - [facility] LB CBC AUTO DIFF Reviewed date:09/15/2024 07:34:53 PM Interpretation: Performing Lab: Notes/Report: [facility] , White Blood Count 4.3 4.0-11.0 10 [...] Performing Lab: see note ML - [facility] LB INFLUENZA A AND B AG Reviewed date:09/15/2024 07:34:53 PM Interpretation: Performing Lab: Notes/Report: [facility] , Influenza Virus A Antigen Negative Negative [...] Performing Lab: see note ML - [facility] LB LACTATE or LACTIC ACID Reviewed date:09/16/2024 08:39:55 PM Interpretation: Performing Lab: Notes/Report: [facility] , Lactate/Lactic Acid 0.6 0.4-2.0 mmol/L Performing Lab: see note ML - [facility] LB PROF 14(COMP METB) Reviewed date:09/16/2024 08:39:55 PM Interpretation: Performing Lab: Notes/Report: [facility] , Sodium 135 136-145 mmol/L Potassium 3.7 [...] Lab: see note ML - [facility] LB Blood Culture 1 Reviewed date:09/22/2024 03:51:35 PM Interpretation: Performing Lab: Notes/Report: [facility] , Blood Culture 1 See Below For Report Blood Culture 1 NG5D NO GROWTH AT 5 DAYS.^NO GROWTH AT 5 DAYS. Performing Lab: see note ML - [facility] LB Blood Culture 2 Reviewed date:09/22/2024 03:51:35 PM Interpretation: Performing Lab: Notes/Report: [facility] , Blood Culture 2 See Below For Report Blood Culture 2 NG5D NO GROWTH AT 5 DAYS.^NO GROWTH AT 5 DAYS. Performing Lab: see note ML - [facility] LB Prothrombin Time INR Reviewed date:09/16/2024 08:39:55 PM Interpretation: Performing Lab: Notes/Report: [facility] , Prothrombin Time 10.9 9.0-11.6 sec INR 1.03 DESIRED INR: 2.0-3.0 CONDITIONS NOT LISTED BELOW 2.5-3.5 FOR PROSTHETIC HEART VALVE REPLACEMENT 2.5-3.5 RECURRENT THROMBOSIS Performing Lab: see note ML - [facility] LB CBC AUTO DIFF Reviewed date:09/17/2024 12:10:47 PM Interpretation: Performing Lab: Notes/Report: [facility] , White Blood Count 4.5 4.0-11.0 10 [...] Lab: see note ML - [facility] LB PROF CHEM 8 (BAS METB) Reviewed date:09/17/2024 12:10:47 PM Interpretation: Performing Lab: Notes/Report: [facility] , Sodium 138 136-145 mmol/L Potassium 3.5 [...] Performing Lab: see note ML - [facility] LB CBC AUTO DIFF Reviewed date:09/29/2024 03:19:39 PM Interpretation: Performing Lab: Notes/Report: [facility] , White Blood Count 6.7 4.0-11.0 10 [...] 0.00-0.03 10 3/uL Performing Lab: see note [facility] LB Osmolality Reviewed date:09/30/2024 07:08:29 PM Interpretation: Performing Lab: Notes/Report: [facility] , Osmolality 286 280-301 mOsmol/kg Performed at: [address] [id number] Scroll Saw Operator: Nicolas Arenas MD, Phone: [phone] Performing Lab: see note [facility] LB IRON AND TIBC Reviewed date:09/29/2024 03:19:39 PM Interpretation: Performing Lab: Notes/Report: [facility] , Iron 71.0 50.0-170.0 ug/dL Total Iron Binding Capacity 271.0 250.0-450.0 u g/dL Percent Iron Saturation 26.2 Performing Lab: see note [facility] LB Osmolality Reviewed date:10/08/2024 01:04:41 PM Interpretation: Performing Lab: Notes/Report: [facility] , Osmolality 293 280-301 mOsmol/kg Performed at: [address] [id number] Scroll Saw Operator: Nicolas Arenas MD, Phone: [phone] Performing Lab: see note [facility] LB BNP Reviewed date:10/15/2024 08:28:30 PM Interpretation: Performing Lab: Notes/Report: [facility] , NT Pro B Type Natriuretic Pept 433.0 <=900.0 pg/mL Performing Lab: see note [facility] LB CBC AUTO DIFF Reviewed date:10/15/2024 02:22:26 PM Interpretation: Performing Lab: Notes/Report: [facility] , White Blood Count 5.3 4.0-11.0 10 [...] Performing Lab: see note ML - [facility] LB PROF 14(COMP METB) Reviewed date:10/15/2024 02:22:26 PM Interpretation: Performing Lab: Notes/Report: [facility] , Sodium 135 136-145 mmol/L Potassium 4.3 [...] Performing Lab: see note ML - [facility] LB ECG 12 lead Reviewed date:10/15/2024 08:28:30 PM Interpretation: Performing Lab: Notes/Report: Source Facility: [facility] [place] [address] [place] [address] Electrocardiograph Report Signed Patient: JOSE MOSER MR#: [id number] : 1960 Acct:[id number] Age/Sex: 64 / F ADM Date: 10/15/24 Loc: ER Attending Dr: Ordering Physician: Teressa Gregory M.D. Date of Service: 10/15/24 Procedure(s): ECG 12 lead Accession Number(s): [id number] cc: [facility] Test Date: 2024-10-15 Pat Name: JOSE MOSER Department: Room: - Gender: Female Manager It Training: : 1960 Requested By: 1030 Order Number: [id number] Reading MD: NEHEMIAH CAMPBELL Measurements Intervals [place] Rate: 83 P: 80 SD: 170 QRS: 20 QRSD: 98 T: 22 QT: 364 QTc: 404 Interpretive Statements 1100 Sinus rhythm 9110 normal ECG Compared to ECG 09/15/2024 19:20:09 Left ventricular hypertrophy no longer present Electronically Signed On 10-15-2024 18:22:52 EDT by NEHEMIAH CAMPBELL Dictated By: Nehemiah Campbell M.D. Signed By: 10/15/24 1823 DD/ 1622 TD/TT: Staff Training And Development Manager: CBC AUTO DIFF Reviewed date:10/16/2024 10:15:17 AM Interpretation: Performing Lab: Notes/Report: [facility] , White Blood Count 4.5 4.0-11.0 10 [...] Lab: see note ML - [facility] LB PROF CHEM 8 (BAS METB) Reviewed date:10/16/2024 10:15:17 AM Interpretation: Performing Lab: Notes/Report: [facility] , Sodium 139 136-145 mmol/L Potassium 3.9 [...] Performing Lab: see note ML - [facility] LB CBC AUTO DIFF Reviewed date:10/22/2024 03:59:28 PM Interpretation: Performing Lab: Notes/Report: [facility] , White Blood Count 6.5 4.0-11.0 10 [...] Performing Lab: see note ML - [facility] LB CBC AUTO DIFF Reviewed date:11/12/2024 08:06:12 PM Interpretation: Performing Lab: Notes/Report: [facility] , White Blood Count 5.2 4.0-11.0 10 [...] Performing Lab: see note - [facility] LB Osmolality Reviewed date:11/16/2024 11:46:04 AM Interpretation: Performing Lab: Notes/Report: [facility] , Osmolality 302 280-301 mOsmol/kg Performed at: [address] [id number] Scroll Saw Operator: Nicolas Arenas MD, Phone: [phone] Performing Lab: see note [facility] Osmolality Reviewed date:11/30/2024 05:03:08 PM Interpretation: Performing Lab: Notes/Report: [facility] , Osmolality 298 280-301 mOsmol/kg Performed at: [address] [id number] Scroll Saw Operator: Nicolas Arenas MD, Phone: [phone] Performing Lab: see note [facility] LB CBC AUTO DIFF Reviewed date:12/10/2024 12:40:51 PM Interpretation: Performing Lab: Notes/Report: [facility] , White Blood Count 5.3 4.0-11.0 [...] Performing Lab: see note ML - [facility] LB PROF 14(COMP METB) Reviewed date:12/10/2024 12:40:51 PM Interpretation: Performing Lab: Notes/Report: [facility] , Sodium 133 136-145 mmol/L Potassium 4.2 [...] Performing Lab: see note - [facility] LB Osmolality Reviewed date:12/12/2024 09:19:03 AM Interpretation: Performing Lab: Notes/Report: [facility] , Osmolality 288 280-301 mOsmol/kg Performed at: [address] [id number] Scroll Saw Operator: Nicolas Arenas MD, Phone: [phone] Performing Lab: see note [facility] LB Osmolality Reviewed date:01/02/2025 06:15:12 PM Interpretation: Performing Lab: Notes/Report: [facility] , Osmolality 296 280-301 mOsmol/kg Performed at: [address] [id number] Scroll Saw Operator: Nicolas Arenas MD, Phone: [phone] Performing Lab: see note [facility] LB CBC AUTO DIFF Reviewed date:01/02/2025 06:15:12 PM Interpretation: Performing Lab: Notes/Report: [facility] , White Blood Count 4.9 4.0-11.0 [...] Performing Lab: see note - [facility] LB VITAMIN D 25 [place] Reviewed date:01/02/2025 06:15:12 PM Interpretation: Performing Lab: Notes/Report: [facility] , Vitamin D 69.4 <20 ng/mL Vit D deficient 20-<30 ng/mL Vit D insufficient 30-100 ng/mL Vit D sufficient >100 ng/mL Potential Toxicity Performing Lab: see note [facility] LB PTH, Intact Reviewed date:01/03/2025 12:58:41 PM Interpretation: Performing Lab: Notes/Report: [facility] , PTH, Intact 87 15-65 pg/mL Performed at: [facility] [address] [id number] Scroll Saw Operator: Josué Crouch PhD, Phone: [phone] Performing Lab: see note - [facility] LB CBC AUTO DIFF Reviewed date:01/07/2025 04:38:56 PM Interpretation: Performing Lab: Notes/Report: [facility] , White Blood Count 5.3 4.0-11.0 10 [...] Lab: see note ML - [facility] LB PROF 14(COMP METB) Reviewed date:01/07/2025 04:38:56 PM Interpretation: Performing Lab: Notes/Report: [facility] , Sodium 132 136-145 mmol/L Potassium 4.7 [...] Globulin Ratio 0.7 Performing Lab: see note [facility] LB Osmolality Reviewed date:01/11/2025 02:47:53 PM Interpretation: Performing Lab: Notes/Report: [facility] , Osmolality 277 280-301 mOsmol/kg Performed at: [address] [id number] Scroll Saw Operator: Nicolas Arenas MD, Phone: [phone] Performing Lab: see note - [facility] LB PROF 14(COMP METB) Reviewed date:01/21/2025 02:22:57 PM Interpretation: Performing Lab: Notes/Report: [facility] , Sodium 136 136-145 mmol/L Potassium [...] Performing Lab: see note - [facility] LB Osmolality Reviewed date:05/30/2024 12:43:32 PM Interpretation: Performing Lab: Notes/Report: [facility] , Osmolality 290 280-301 mOsmol/kg Performed at: [address] [id number] Scroll Saw Operator: Nicolas Arenas MD, Phone: [phone] Performing Lab: see note - [facility] LB CBC AUTO DIFF Reviewed date:06/12/2024 03:53:07 PM Interpretation: Performing Lab: Notes/Report: [facility] , White Blood Count 6.6 4.0-11.0 [...] Lab: see note ML - [facility] LB Osmolality Reviewed date:06/17/2024 07:08:27 PM Interpretation: Performing Lab: Notes/Report: [facility] , Osmolality 296 280-301 mOsmol/kg Performed at: [facility] [address] [id number] Scroll Saw Operator: Nicolas Arenas MD, Phone: [phone] Performing Lab: see note - [facility] LB Reason For Referral Diagnosis 1 Supraspinatus tendon tear (S46.819A) Referral Organization [facility] Referring Provider First Name Vinay Referring Provider Last Name Herbert Referring Provider Speciality [facility] [place] donnellne Referred Provider Ang Swan Referred Provider Specialty Orthopedic S urgery Referral Priority Routine Reason Needs new shoulder Diagnosis 1 Shoulder impingement (M75.40) Referral Organization [facility] Referring Provider First Name Vinay Referring Provider Last Name Herbert Referring Provider Speciality [facility] jagdeep Referred Provider Carlos Butterfield Referred Provider Specialty Orthopedic S urgery Referral Priority Routine Medications Medication SIG (Take, Route, Frequency, Duration) Notes Start Date End Date Status oxyCODONE-Acetaminophen 5-325 MG 2 tablet Orally every 6 hrs as needed 03/03/2025 Active Butorphanol Tartrate 10 MG/ML 1 spray in one nostril Nasally once daily as needed Active Pramipexole Dihydrochloride 1 MG TAKE 1 TABLET BY MOUTH DAILY; Duration: 60 PRN Active SEROquel 50 MG 1 tablet at bedtime Orally Once a day; Duration: 30 days 03/18/2025 Active Cyanocobalamin 1000 MCG/ML 1 mL Injectio n IM every month; Duration: 90 days 11/27/2023 Active Primidone 50 MG TAKE THREE TABLETS B Y MOUTH EVERY EVENING; Duration: 30 Active Ondansetron 4 MG DISSOLVE ONE TABLET BY MOUTH EVERY 6 HOURS NEEDED; Duration: 10 Active One Touch Delica Lancets Active One Touch Ultra Test Strips Active Doxepin HCl 25 MG 1-2 capsule at bedti me Orally Once a day; Duration: 30 days 09/20/2023 Active Desvenlafaxine Succinate ER 50 MG 1 tablet Orally Once a day; Duration: 90 days Active tiZANidine HCl 4 MG TAKE 1 TABLET BY HARRY TWO TIMES A DAY AND 2 TABLETS AT BEDTIME (MAX DAILY AMOUNT 4 TABLETS); Duration: 30 days Active Vitamin D (Ergocalciferol) 14710 UNIT 1 capsule Orally once a week Active Diclofenac Sodium 1 % Apply 0.5 gram Externally twice daily Active Entresto 49-51 MG TAKE 1 TABLET BY HARRY 2 TIMES A DAY; Duration: 30 days Active fentaNYL 100 MCG/HR 1 patch to skin Transdermal every 72 hours 03/11/2025 Active Iron Active hydrOXYzine HCl 25 MG 1 tablet as needed Orally qid; Duration: 10 days 04/05/2024 Active ALPRAZolam 0.5 MG TAKE 1 TABLET BY HARRY TH TWICE A DAY NEEDED; Duration: 30 03/11/2025 Active Levothyroxine Sodium 100 MCG 1 tablet in the morning on an empty stomach Orally Once a day; Duration: 90 days Active Amitriptyline HCl 150 MG TAKE 2 TABLETS BY MOUTH DAILY; Duration: 90 Active Linzess 290 MCG TAKE 1 CAPSULE BY MO UT DAILY; Duration: 90 Active Aspirin 81 MG 1 tablet Orally Once a day Active Liothyronine Sodium 25 MCG 1 tablet on a n empty stomach Orally Once a day; Duration: 90 days 10/11/2023 Active Azelastine HCl 0.05 % 1 drop into affect ed eye Ophthalmic Twice a day 08/28/2023 Active LymphaPress use daily for Lymphedema; Duration: 90 days 10/17/2023 Active Immunizations Vaccine Route Administration Date Status Comme nts Flu, Flublok (82283) 18yr+, single-dose (5295-6452) Unknown 03/11/2023 Administered Pneumococcal (Pneumovax 23) Unknown [...] Problem Status W/U Status Risk Notes Problem Chronic kidney disease (525914580) Chronic kidney disease, unspecified (N18.9) Active confirmed Problem Bacterial infection (46075798) Other bacterial infections of unspecified site (A49.8) Active confirmed Problem Anemia in chronic kidney disease (325557410) Anemia in chronic kidney disease (D63.1) Active confirmed Problem Dehydration (91930755) Dehydration (E86.0) Active confirmed Problem Moderate recurrent major depression (72498996) Major depressive disorder, recurrent, moderate (F33.1) Active confirmed Problem Essential tremor (354299084) Essential tremor (G25.0) Active confirmed Problem Migraine without aura, not refractory (disorder) (573487266) Migraine, unspecified, not intractable, without status migrainosus (G43.909) Active confirmed Problem Flaccid hemiplegia o f dominant side (522110201) Flaccid hemiplegia affecting right dominant side (G81.01) Active confirmed Problem Rheumatic tricuspid insufficiency (89450010) Rheumatic tricuspid insufficiency (I07.1) Active confirmed Problem Peripheral venous insufficiency (48462025) Venous insufficiency (chronic) (peripheral) (I87.2) Active confirmed Problem Lymphedema (386507356) Lymphedema, not elsewhere classified (I89.0) Active confirmed Problem Sunburn of second degree (205770038) Sunburn of second degree (L55.1) Active confirmed Problem Sebaceous cyst (983693561) Sebaceous cyst (L72.3) Active confirmed Problem Shortness of breath (245917354) Shortness of breath (R06.02) Active confirmed Problem Sprain of shoulder joint (6641526) Other sprain of right shoulder joint, initial encounter (S43.491A) Active confirmed Problem History of fall (772094423) History of falling (Z91.81) Active confirmed Problem Morbid obesity (561027239) Morbid obesity (E66.01) Active confirmed Problem COPD - Chronic obstructive pulmonary disease (54779164) COPD (chronic obstructive pulmonary disease) (J44.9) Active confirmed Problem Gastroesophageal reflux disease (275676476) GERD (gastroesophageal reflux disease) (K21.9) Active confirmed Problem Anxiety (69286849) Anxiety (F41.9) Active confi rmed Problem Neck pain (75149939) Neck pain (M54.2) Active c onfirmed Problem Edema (31880554) Edema (R60.9) Active confirmed Problem Lymphedema (43712396) Lymphedema (I89.0) Active confirmed Problem Chronic kidney disease (163001038) CKD (chronic kidney disease) (N18.9) Active confirmed Problem Essential hypertension (74642204) Benign essential HTN (I10) Active confirmed Problem Mitral valve disorde r (87360294) Mild mitral regurgitation (I34.0) Active confirmed Problem Insomnia (659409731) Insomnia (G47.00) Active c onfirmed Problem Chronic kidney disease stage 2 (241543407) Chronic kidney disease (CKD) stage G2/A1, mildly decreased glomerular filtration rate (GFR) between 60-89 mL/min/1.73 square meter and albuminuria creatinine ratio less than 30 mg/g (N18.2) Active confirmed Problem Knee pain (9787075727) Knee pain (M25.569) Active confirmed Problem Hip pain (24007476) Hip pain (M25.559) Active c onfirmed Problem Hyponatremia (85697330) Hyponatremia (E87.1) Active confirmed Problem Spinal stenosis in cervical region (20917368) Spinal stenosis in cervical region (M48.02) Active confirmed Problem Altered thought processes (51184909) Cognitive changes (R41.89) Active confirmed Problem Osteoarthritis of knee (503098400) Knee osteoarthritis (M17.9) Active confirmed Problem Migraine (14900281) Migraine (G43.909) Active c onfirmed Problem Degeneration of cervical intervertebral disc (28473815) Degenerative disc disease, cervical (M50.30) Active confirmed Problem Tricuspid valve disorder (38188946) Mild tricuspid regurgitation (I07.1) Active confirmed Problem Acute sinusitis (20192586) Acute sinusitis (J01.90) Active confirmed Problem Mild cognitive impairment (490976011) Mild cognitive impairment (G31.84) Active confirmed Problem Osteoporosis (63735314) Osteoporosis (M81.0) Active confirmed Problem Acquired hypothyroidism (151897183) Acquired hypothyroidism (E03.9) Active confirmed Problem Pain of left knee region (finding) (720908021910445) Knee pain, left (M25.562) Active confirmed Problem Hypoglycemia (590725068) Hypoglycemia (E16.2) Active confirmed Problem Acquired spondylolisthesis (034448560) Lumbar spondylolysis (M43.06) Active confirmed Problem Chronic pain (77340522) Chronic pain (G89.29) Active confirmed Problem Iron deficiency anemia (59236884) Iron deficiency anemia (D50.9) Active confirmed Problem Pain in limb (03459090) Hand pain, left (M79.642) Active confirmed Problem Peripheral venous insufficiency (55492066) Peripheral venous insufficiency (I87.2) Active confirmed Problem Aortic cusp regurgitation (950007635) Aortic cusp regurgitation (I35.1) Active confirmed Problem Overweight (510850094) Over weight (E66.3) Active confirmed Problem Tear of right rotato r cuff (09352304659891944) Right rotator cuff tear (M75.101) Active confirmed Problem Iron deficiency anemia (59734305) Anemia, iron deficiency (D50.9) Active confirmed Problem Anemia of chronic disease (959705239) Anemia of chronic disease (D63.8) Active confirmed Problem Otitis media (67219162) Acute otitis media, right (H66.91) Active confirmed Problem Fluid overload (29787088) Fluid overload (E87.70) Active confirmed Problem Endogenous obesity (079638443) Endogenous obesity (E66.8) Active confirmed Problem Chronic renal failur e syndrome (91129328) Chronic kidney insufficiency (N18.9) Active confirmed Problem Dyspnea (225670679) Acute dyspne a (R06.00) Active confirmed Problem Double vision (16261554) Double vision (H53.2) Active confirmed Problem Acute diarrhea (580198843) Acute diarrhea (R19.7) Active confirmed Problem Idiopathic gout (87384068) Acute gouty arthritis (M10.00) Active confirmed Problem Thoracic radiculopathy (61475815) Thoracic radiculopathy (M54.14) Active confirmed Problem Iron deficiency anemia (92883557) Iron (Fe) deficiency anemia (D50.9) Active confirmed Problem Impingement syndrome of shoulder (936814879) Impingement syndrome of shoulder (M75.40) Active confirmed Problem C2 cervical frac ture (S12.100A) Active confirmed Problem Hyperparathyroidism due to renal insufficiency (17410651) Hyperparathyroidism due to renal insufficiency (N25.81) Active confirmed Problem Edema (231140032) Bilateral leg edema (R60.0) Active confirmed Problem Arthritis of lumbosacral spine (disorder) (488421336) Lumbar and sacral osteoarthritis (M47.817) Active confirmed Problem Abnormal renal function (70951781) Abnormal renal function (N28.9) Active confirmed Problem Chronic heart failur e (23460295) Chronic heart failure (I50.9) Active confirmed Problem Acute arthritis (48318671) Acute arthritis (M19.90) Active confirmed Problem Tunneled central venous catheter in situ (544862902) Port-a-cath in place (Z95.828) Active confirmed Problem Acute congestive heart failure (53080824) Acute CHF (I50.9) Active confirmed Problem Lumbosacral radiculopathy (7207878) Left lumbosacral radiculopathy (M54.17) Active confirmed Problem Gastroesophageal reflux disease (disorder) (951951460) Chronic GERD (K21.9) Active confirmed Problem Cardiomegaly (4549520) Atrial enlargement, left (I51.7) Active confirmed Problem Pulmonary valve insufficiency (98171599) Pulmonary valve insufficiency (I37.1) Active confirmed Problem Transient ischemic attack (disorder) (560079763) Brain TIA (G45.9) Active confirmed Problem Vitamin D deficiency (75331653) Unspecified vitamin D deficiency (E55.9) Active confirmed Problem Essential hypertension (80178556) BP (high blood pressure) (I10) Active confirmed Problem Bad memory (142187326) Bad memory (R41.3) Active confirmed Problem Abnormal swallowing (73902703) Abnormal swallowing (R13.10) Active confirmed Problem Chronic kidney disease stage 2 (815140862) Chronic kidney disease (CKD), stage 2 (mild) (N18.2) Active confirmed Problem Simple goiter (900209268) Nontoxic (diffuse) goiter (E04.0) Active confirmed Problem CHF (congestive heart failure), NYHA class I, acute, combined (I50.41) Active confirmed Problem Closed fracture of trochanter of femur (475019435) Closed displaced fracture of greater trochanter of left femur, initial encounter (S72.112A) Active confirmed Problem Spinal stenosis of lumbar region (42098428) Spinal stenosis at L4-L5 level (M48.061) Active confirmed Problem Neurogenic claudication (723046289) Lumbar stenosis with neurogenic claudication (M48.062) Active confirmed Problem Clostridium difficil e colitis (disorder) (674185748) C. difficile colitis (A04.72) Active confirmed Problem Clostridium difficil e colitis (635238839) Clostridium difficile colitis (A04.72) Active confirmed Problem Pulmonary hypertension (disorder) (00321488) Chronic pulmonary hypertension (I27.20) Active confirmed Problem Cervical arthritis (493744405) Cervical arthritis (M47.812) Active confirmed Problem Acute repetitive seizure (811030090221826) Acute repetitive seizure (G40.909) Active confirmed Problem Chronic kidney disease stage 3 (disorder) (943450500) Chronic kidney disease, stage 3 unspecified (N18.30) Active confirmed Problem Acute worsening of stage 3 chronic kidney disease (N18.30) Active confirmed Problem Headache above t he eye region (R51.9) Active confirmed Problem Disease caused by Severe acute respiratory syndrome coronavirus 2 (disorder) (013454803) COVID (U07.1) Active confirmed Vital Signs Blood pressure diastolic 102 mm Hg 03/18/2025 Height 62 in 03/18/2025 Blood pressure systolic 170 mm Hg 03/18/2025 Weight 183.0 lbs 03/18/2025 BMI 33.47 kg/m2 03/18/2025 Encounters Encounter Location Date Provider Diagnosis [address] [address] 03/29/2024 Vinay Hoy Fluid overload E87.[address] [address] 04/05/2024 Vinay Hoy Edema R60.9 ; Benign essential HTN I10 ; Acute CHF I50.9 ; Left lumbosacral radiculopathy M54.17 ; Cervical arthritis M47.812 and Hyperglycemia R73.9 [facility] [address] [place] [address] 04/16/2024 [facility] [address] [place] [address] 05/14/2024 [facility] [address] [facility] [address] 07/16/20[facility] [address] [place] [address] 07/02/[address] [place] [address] 07/31/2024 Vinay Hoy Hand pain, left M79. 642 [facility] [address] [place] [place] [address] 08/06/2024 Vinay Hoy Acute CHF I50.9 ; Chronic heart failure I50.9 ; History of falling Z91.81 and Right sided abdominal pain R10.9 [facility] [address] [place] [address] 09/20/2024 Vinay Hoy Edema R60.9 ; Benign essential HTN I10 ; Hyponatremia E87.1 and CHF (congestive heart failure), NYHA class I, acute, combined I50.41 [facility] [address] [facility] [place] [address] 10/15/2024 [facility] [address] [facility] [place] [address] 10/15/2024 [facility] [address] [facility] [place] [address] 10/29/2024 [facility] [address] [facility] [place] [address] 11/12/2024 [facility] [address] [facility] [place] [address] 11/26/20[facility] [address] [facility] [place] [address] 12/10/2024 [facility] [address] [facility] [place] [address] 12/24/2024 [facility] [address] [facility] [place] [address] 12/24/[address] [facility] [address] [place] [place] [address] 11/13/2024 Vinay Hoy Acute repetitive seizure G40.909 ; Major depressive disorder, recurrent, moderate F33.1 and Cellulitis L03.90 [facility] [address] [place] [place] [address] 11/20/2024 Vinay Hoy Cellulitis L03.90 an d Acute repetitive seizure G40.909 [facility] [address] [place] [address] 11/22/2024 Vinay Hoy Cellulitis L03.90 [facility] [address] [facility] [place] [address] 02/04/2025 [facility] [address] [facility] [place] [address] 02/18/[address] [facility] [address] [place] [address] 02/19/2025 Vinay Hoy Acute non-recurrent sinusitis, unspecified location J01.90 and Nasal congestion R09.81 [facility] [address] [place] [address] 03/03/2025 Vinay Hoy Benign essential HTN I10 ; Lumbar and sacral osteoarthritis M47.817 ; Left lumbosacral radiculopathy M54.17 and Thoracic radiculopathy M54.14 [facility] [address] [place] [address] 03/18/2025 Vinay Hoy Insomnia G47.00 and Shoulder impingement M75.40 [facility] [address] [facility] [address] 03/18/2024 Vinay Hoy Benign essential HTN I10 [facility] [address] [facility] [address] 03/18/2024 Vinay Hoy [facility] [address] [place] [place] [address] 03/18/2024 Vinay Hoy Benign essential HTN I10 [facility] [address] [place] [address] 03/18/2024 Vinay Hoy [facility] [address] [place] [address] 03/27/2024 Vinay Hoy [facility] [address] [place] [address] 04/01/2024 Vinay Hoy Supraspinatus tendon tear S46.819A [facility] [address] [place] [address] 04/05/2024 Vinay Hoy [facility] [address] [place] [address] 04/09/2024 Vinay Hoy [facility] [address] [place] [address] 04/10/2024 Vinay Hoy Sebaceous cyst L72.3 [facility] [address] [place] [address] 04/16/2024 Vinay Hoy [facility] [address] [place] [address] 04/22/2024 Sheridan Love Lumbar radiculopathy M54.16 [facility] [address] [place] [address] 05/09/2024 Vinay Hoy Sebaceous cyst L72.3 [facility] [address] [place] [address] 05/20/2024 Vinay Hoy Lumbar radiculopathy M54.16 [facility] [address] [facility] [place] [address] 05/20/2024 Vinay Hoy [facility] [address] [facility] [place] [address] 05/30/2024 Vinay Hoy [facility] [address] [place] [address] 06/06/2024 Vinay Hoy Sebaceous cyst L72.3 [facility] [address] [place] [address] 06/13/2024 Vinay Hoy [facility] [address] [place] [address] 07/02/2024 Vinay Hoy Fluid overload E87.7 0 ; Benign essential HTN I10 and Hyponatremia E87.1 [facility] [address] [place] [address] 07/05/2024 Vinay Hoy Sebaceous cyst L72.3 [facility] [address] [place] [address] 07/18/2024 Vinay Hoy Anxiety F41.9 [facility] [address] [facility] [place] [address] 07/22/2024 Vinay Hoy Sebaceous cyst L72.3 and Lumbar radiculopathy M54.16 [facility] [address] [place] [address] 07/22/2024 Vinay Hoy [facility] [address] [place] [address] 08/06/2024 Vinay Hoy [facility] [address] [place] [facility] [place] [address] 08/15/2024 Vinay Hoy [facility] [address] [place] [address] 08/21/2024 Vinay Hoy C2 cervical fracture S12.100A and Lumbar radiculopathy M54.16 [facility] [address] [place] [facility] [place] [address] 09/04/2024 Vinay Hoy Right sided abdomina l pain R10.9 [facility] [address] [place] [place] [address] 09/05/2024 Vinay Hoy [facility] [address] [place] [address] 09/05/2024 Vinay Hoy [facility] [address] [place] [address] 09/11/2024 Vinay Hoy Right sided abdomina l pain R10.9 ; Hand pain, left M79.642 ; Hyperglycemia R73.9 ; Edema R60.9 and Elevated creatine kinase R74.8 [facility] [address] [place] [address] 09/18/2024 Vinay Hoy [facility] [address] [place] [address] 09/27/2024 Vinay Hoy [facility] [address] [place] [address] 10/03/2024 Vinay Hoy Right sided abdomina l pain R10.9 [facility] [address] [place] [address] 10/22/2024 Vinay Hoy Edema R60.9 [facility] [address] [place] [address] 11/04/2024 Vinay Hoy Right sided abdomina l pain R10.9 [facility] [address] [place] [address] 11/22/2024 Vinay Hoy [facility] [address] [place] [address] 11/26/2024 Vinay Hoy [facility] [address] [place] [address] 12/03/2024 Vinay Hoy Right sided abdomina l pain R10.9 [facility] [address] [place] [address] 12/20/2024 Vinay Hoy Cellulitis L03.90 [facility] [address] [place] [address] 12/31/2024 Vinay Hoy Right sided abdomina l pain R10.9 [facility] [address] [place] [address] 01/02/2025 Vinay Hoy [facility] [address] [place] [address] 01/02/2025 Vinay Hoy [facility] [address] [place] [address] 01/20/2025 Vinay Hoy Low back pain at multiple sites M54.50 [facility] [address] [place] [address] 01/21/2025 Vinay Hoy [facility] [address] [place] [address] 01/24/2025 Vinay Hoy Cellulitis L03.90 [facility] [address] [place] [place] [address] 01/27/2025 Vinay Hoy [facility] [address] [facility] [place] [address] 01/30/2025 Vinay Hoy Right sided abdomina l pain R10.9 [facility] [address] [place] [place] [address] 03/11/2025 Vinay Hoy Cellulitis L03.90 [facility] [address] [place] [address] 03/17/2025 Vinay Hoy Assessments Encounter Date Diagnosis (ICD Code) Assessment Notes Treatment Notes Treatment Clinical Notes Section Notes 11/20/2024 Cellulitis (ICD-10 - L03.90) 11/20/2024 Acute repetitive seizure (ICD-10 - G40.909) 11/22/2024 Cellulitis (ICD-10 - L03.90) 07/31/2024 Hand pain, left (ICD-10 - M79.642) 11/13/2024 Major depressive disorder, recurrent, moderate (ICD-10 - F33.1) 04/05/2024 Benign essential HTN (ICD-10 - I10) keep bumex - latoya add back spironolactone 50 mg a day 08/06/2024 Chronic heart failure (ICD-10 - I50.9) 08/06/2024 Acute CHF (ICD-10 - I50.9) 09/20/2024 Edema (ICD-10 - R60.9) 09/20/2024 Benign essential HTN (ICD-10 - I10) 03/29/2024 Fluid overload (ICD-10 - E87.70) 04/05/2024 Edema (ICD-10 - R60.9) 03/18/2024 Benign essential HTN (ICD-10 - I10) 03/18/2024 Benign essential HTN (ICD-10 - I10) 04/01/2024 Supraspinatus tendon tear (ICD-10 - S46.819A) 04/10/2024 Sebaceous cyst (ICD-10 - L72.3) 04/22/2024 Lumbar radiculopathy (ICD-10 - M54.16) 05/09/2024 Sebaceous cyst (ICD-10 - L72.3) 05/20/2024 Lumbar radiculopathy (ICD-10 - M54.16) 06/06/2024 Sebaceous cyst (ICD-10 - L72.3) 07/02/2024 Benign essential HTN (ICD-10 - I10) 11/13/2024 Acute repetitive seizure (ICD-10 - G40.909) 02/19/2025 Acute non-recurrent sinusitis, unspecified location (ICD-10 - J01.90) Rest and drink more liquids, especially water. You may use a humidifier or vaporizer to help keep the drainage moist. Leci-dfw-atxwokh Nasal Saline may help the stuffy and runny nose. Use Ibuprofen and or Tylenol as needed for fever, chills, body aches or pain. Children 5 years old should not be given yxhn-ari-rxeijej cough and cold medications such as guaifenesin and dextromethorphan. If you're over age 5, you may try nhky-wig-tcjlzua cold medications such as guaifenesin and dextromethorphan, or multi-symptom cold reliever such as Dayquil to help reduce the symptoms. Antibiotics have been prescribed. You should take these until completed and follow the directions. Antibiotics can sometimes cause upset stomach, and in rare cases, serious allergic reactions or serious gastrointestinal problems. If you start having severe abdominal pain, severe vomiting, or bloody diarrhea, you should be reevaluated by your physician or urgent care immediately. Follow up with your Primary Care Provider or return to clinic if symptoms do not improve within 3-5 days 03/03/2025 Benign essential HTN (ICD-10 - I10) 03/18/2025 Insomnia (ICD-10 - G47.00) 03/18/2025 Shoulder impingement (ICD-10 - M75.40) 03/03/2025 Lumbar and sacral osteoarthritis (ICD-10 - M47.817) 07/02/2024 Fluid overload (ICD-10 - E87.70) 07/05/2024 Sebaceous cyst (ICD-10 - L72.3) 07/18/2024 Anxiety (ICD-10 - F41.9) 07/22/2024 Sebaceous cyst (ICD-10 - L72.3) 10/03/2024 Right sided abdominal pain (ICD-10 - [...] Right sided abdominal pain (ICD-10 - R10.9) 03/11/2025 Cellulitis (ICD-10 - L03.90) 08/21/2024 C2 cervical fracture (ICD-10 - S12.100A) 09/04/2024 Right sided abdominal pain (ICD-10 - R10.9) 09/11/2024 Right sided abdominal pain (ICD-10 - R10.9) 09/11/2024 Hand pain, left (ICD-10 - M79.642) 07/22/2024 Lumbar radiculopathy (ICD-10 - M54.16) 08/21/2024 Lumbar radiculopathy (ICD-10 - M54.16) 03/03/2025 Left lumbosacral radiculopathy (ICD-10 - M54.17) 07/02/2024 Hyponatremia (ICD-10 - E87.1) 09/20/2024 Hyponatremia (ICD-10 - E87.1) 04/05/2024 Acute CHF (ICD-10 - I50.9) sed above 11/13/2024 Cellulitis (ICD-10 - L03.90) 08/06/2024 History of falling (ICD-10 - Z91.81) 02/19/2025 Nasal congestion (ICD-10 - R09.81) 08/06/2024 Right sided abdominal pain (ICD-10 - R10.9) 04/05/2024 Left lumbosacral radiculopathy (ICD-10 - M54.17) stabel 09/20/2024 CHF (congestive heart failure), NYHA class I, acute, combined (ICD-10 - I50.41) 03/03/2025 Thoracic radiculopathy (ICD-10 - M54.14) 09/11/2024 Hyperglycemia (ICD-10 - R73.9) 09/11/2024 Edema (ICD-10 - R60.9) 04/05/2024 Cervical arthritis (ICD-10 - M47.812) deteriorated toda - headache 04/05/2024 Hyperglycemia (ICD-10 - R73.9) 09/11/2024 Elevated creatine kinase (ICD-10 - R74.8) 03/03/2025 Other Recommended to rest and use a heating pad on the area. Take NSAIDs for pain as needed Plan Of Treatment Pending Test Test Name Order Date XR Lumbar Spine (2-3 views) * 01/20/2025 CT Lumbar w/o contrast * 10/16/2023 IONIZED CALCIUM 12/06/2022 COMPREHENSIVE METABOLIC PROFILE WITH GFR 07/02/2024 BMP - Basic Metabolic Panel 09/11/2024 CBC W/AUTO DIFF 07/02/2024 XR Hand 3 Views Left 07/31/2024 MAGNESIUM 12/06/2022 PHOSPHORUS 12/06/2022 CT ABD and PELV W CON 08/06/2024 CT CSPINE WO CON 01/14/2024 MRI LSPINE WO CON 03/03/2025 MRI TSPINE WO CON 03/03/2025 US ARTERY LEG GUMARO 12/06/2022 VC VENOUS [...] Rae , 03/18/2025 02:45:00 PM, [address] [place], [address], Insurance Providers Payer Name Payer Address Payer Phone Subscriber Number Group Number Insured Name Patient Relationship to Insured Coverage Start Date Coverage End Date [facility] [employer] [address] [place] [address] [phone] [id number] 2 Jose Moser Self - patient is the insured 4 MEDICAID [place] 2ND INS [address] [place], [place] [id number] Jose Moser Self - patient is the [...] 30 mg Ketorolac Tromethamine 11/22/2024 30 mg Ketorolac Tromethamine 02/19/2025 30 mg Lidocaine HCl 11/20/2024 2.1 mL [...] 60 Orphenadrine Citrate 02/22/2024 60 mg 60 Orphenadrine Citrate 02/19/2025 60 mg Phenergan 11/24/2022 50 mg Phenergan 09/29/2023 50 mg Phenergan 08/18/2023 25 mg Promethazine 25mg 10/05/2022 25 mg 25 mg I M Promethazine 25mg 10/19/2022 25 mg Promethazine 25mg 03/08/2023 25 mg Promethazine 25mg 05/10/2023 1 mL Promethazine 25mg 09/28/2023 50 mg Promethazine 25mg 02/19/2025 25 mg Promethazine, 25 mg 11/04/2022 25 mg 25 Promethazine, 25 mg 02/03/2023 25 mg 25 Promethazine, 25 mg 11/09/2023 2 mL 50 Promethazine, 25 mg 02/22/2024 50 mg 50 Promethazine, up to 50 mg 10/09/2023 50 mg Triamcinolone 40 mg/ml 02/19/2025 80 mg Medical (General) History Medical History History [...] regurgitation I34.0 epilepsy Surgical History Surgery Date(Month/Year) cervical one to cervical two fusion Right Heart Cath 11/30/22 port placement 10/12/2022 back surgery gallbladder gastric bypass rotator cuff port knee replacement Trigger pain injection to bilat shoulder blades Hospitalization History Reason Date(Month/Year) fluid overload 08/2024 fluid overload 04/18 Fluid Overload 12/2023 fluid overload 10/17 e colie 01/2023
--- OUTSIDE RECORDS SUMMARY | 2025-03-18 12:49 | XMS_ITS | Patient Health Record ---
Author Organization [facility] Address [address] [place] [address] Care Team Providers Care Project Drilling Engineer Name Role Phone Herbert Yuri Primary Care Provider Therese Diaz ClaLoi kam Unavailable [phone] MichelLaurie borja Unavailable [phone] Allergies Allergen (clinical drug ingredient) Drug/Non Drug [...] Problem Status W/U Status Risk Notes Problem [id number] Cervical spinal stenosis (M48.02) Active confirmed Problem 058020576 Cervical myelopathy (G95.9) Active confirmed Problem 105666320484345 Primary osteoarthritis of left knee (M17.12) Active confirmed Problem Localized, primary osteoarthritis of the shoulder region (001587803) Primary osteoarthritis, left shoulder (M19.012) Active confirmed Problem 535909435 Unspecified nondisplaced fracture of second cervical vertebra, initial encounter for closed fracture (S12.101A) Active confirmed Problem 977492417 Unspecified nondisplaced fracture of second cervical vertebra, subsequent encounter for fracture with routine healing (S12.101D) Active confirmed Problem 988729125533276 Sciatica of left side (M54.32) Active confirmed Problem Fall, initial encounter (W19.XXXA) Active confirmed Problem 88935039 Lumbar stenosis with neurogenic claudication (M48.062) Active confirmed Problem [id number] Tear of left rotator cuff, unspecified tear extent, unspecified whether traumatic (M75.102) Active confirmed Encounters Encounter Location Date Provider Diagnosis [facility] Office [address] [place] [address] [place] [address] 05/06/2024 [place] [facility] Tear of left rotator [...] Spine W/O Contrast SCC- KNEE 4 [id number] [id number] 12/18/2023 MRI : Cervical Spine W/O Contrast - 7214 1 10/27/2023 MRI : Cervical Spine W/O Contrast - 7214 1 01/12/2024 Insurance Providers Payer Name Payer Address Payer Phone Subscriber Number Group Number Insured Name Patient Relationship to Insured Coverage Start Date Coverage End Date MEDICARE UHC DUAL COMPLETE [address] [place] [address] [id number] DEONKANDICE JOSE Self - [facility] the insured [facility] [address] [place] [address] [phone] [id number] DEONKANDICE JOSE Self - patient is the [...] Date(Month/Year) Cholecystectomy (gallbladder removal) 19 80 Hysterectomy 2005 Gastric bypass surgery 1999 Rotator cuff surgery 2022 Back surgery 2022 Knee replacement 2017
--- OUTSIDE RECORDS SUMMARY | 2025-03-18 12:54 | XMS_ITS | CCD ---
Author Organization [facility] Care Team Providers Care Product Expert Name Role Phone NIRMAL LEWIS Admitting Unavailable NIRMAL LEWIS Attending Unavailable YURI SANTANA Primary Care Unavailable NIRMAL LEWIS Admitting Unavailable NIRMAL LEWIS Attending Unavailable UYRI SANTANA Primary Care Unavailable [place] Unavailable CARLOS REZA Admitting Unavailable CARLOS REZA Attending Unavailable YURI SANTANA Primary Care Unavailable YURI SANTANA Referring Unavailable Robert Johnston Admitting Unavailable Robert Johnston Attending Unavailable YURI SANTANA Referring Unavailable YURI SANTANA Primary Care Unavailable TadDonnie blairariel Unavailable Sue Leiva Unavailable MD Yuri Santana Primary Care Provider [phone] WALLY Helm Emergency Provider [phone] ROBERT JOHNSTON Attending Unavailable ROBERT JOHNSTON Admitting [...] Unavailable HOY ., DR BARBOUR Attending Unavailable PURDON, DR CARLOS Castillo Consulting Unavailable LAKSHMIPATHY ., [...] Unavailable AGUBOSIMBRIAN Consulting Unavailable HOY ., DR BAROBUR Primary Care Unavailable HARP ., DR ANIKA [...] ANIKA Blair Consulting Unavailable HARP ., DR NAIKA Blair Attending Unavailable SHAMA ALEXANDRA Consulting Unavailable BUNNY MCMILLAN Consulting Unavailable HOY ., DR BARBOUR Admolena Unavailable HOY ., DR BARBOUR Primary Care Unavailable HOY ., DR BARBOUR Consulting Unavailable MUKUNDY ., DR BARBOUR Attending Unavailable MD Yuri Santana Primary Care Provider [phone] MD Beatriz Oh Admit Provider DO Jim Randhawa Attending Provider [phone] MD [place] Other Provider Jim Randhawa Attending Unavailable Beatriz Oh Admolena Unavailable [place] Consulting Unavailable Yuri Santana Primary Care Unavailable Favian Helm Admitting Unavailable Favian Helm Attending Unavailable Yuri Santana Primary Care Unavailable HOY, YURI M Referring Unavailable HOY, YURI M Primary Care Unavailable Mukundy Yuri Primary Care Physician Migel MCKINNEY Attending Unavailable [...] PARIKH Consulting Unavailable YASMINJENNY Duron Consulting Unavailable ALI, PINEDA HUMMELL Consulting Unavailable ZAIDACr, MATTHEW O Consulting Unavailable RADHA WADE Consulting Unavailable LUCIANO WEISS Consulting Unavailable THUMMALDAPHNE SALVADORHEETH Consulting Unavaila diana DANG V, BENJIE Referring Unavailable HOY, YURI M Primary Care Unavailable MOUKASAUL Castillo, BENJIE Referring Unavailable HOY, YURI M Primary Care Unavailable MOUKARBSUE Castillo, BENJIE Referring Unavailable HOY, YURI M Primary Care Unavailable MOUKARBEL Anna, BENJIE Referring Unavailable HOY, YURI M Primary Care Unavailable ALTON, BENJIE Attending Unavailable MOUKARBSUE, BENJIE Attending Unavailable MOUKARBBENJIE RASCON Attending Unavailable ELATTAR, OSAMA Attending Unavailable ELATTAR, OSAMA Referring Unavailable ELATTAR, OSAMA Referring Unavailable ELATTAR, OSAMA Referring Unavailable Esther ASCENCIO, Yuri M Primary Care Provider [phone] Casimiro ASCENCIO, Raeann Attending Provider Gieditis , Andrius Timmons Attending Unavailable Giedraitis , Andrius Vytopal Attending Unavailable Giedraitis , Andrius Vytopal Attending Unavailable Allergies Allergy Classification Reported Allergen(s) Allergy Type Date of Onset Reaction(s) Facility (14 sources) Amoxicillin Drug Allergy 10-29-19 Unknown, Diarrhea [facility] (6 sources) Amoxicillin / Clavulanate; Translations: [amoxicillin-clavul anate] Drug Allergy Weal (disorder) [facility] (18 sources) Povidone-Iodine; Translations: [POVIDONE-IODINE] Drug Allergy 08-15-19 17 Eruption of skin (disorder) [facility] (9 sources) Sulfamethoxazole / Trimethoprim Drug Allergy Unknown [facility] Other (1 source) sulfaSALAzine Drug Allergy Unknown [facility] Other (8 sources) Amoxicillin / Clavulanate; Translations: [Augmentin] Drug Allergy 11-26-19 13 Unknown [facility] (1 source) Bumetanide Drug Allergy 03-22-20 16 [facility] (1 source) Cephalexin Drug Allergy 01-15-20 14 [facility] (2 sources) gabapentin; Translations: [GABAPENTIN] Drug Allergy 08-19-19 22 [facility] (4 sources) Povidone-Iodine; Translations: [Betadine] Drug Allergy 11-26-19 13 [facility] (1 source) pregabalin; Translations: [LYRICA] Drug Allergy 08-19-19 22 [facility] (11 sources) Sulfonamides (Antibiotic); Translations: [SULFA (SULFONAMIDE ANTIBIOTICS)] Drug allergy (disorder) 11-26-19 13 Rash [facility] (1 source) Sulfonamide Drug allergy Unknown [facility] Other (7 sources) Substance with sulfonamide structure and antibacterial mechanism of action (substance) Drug allergy Unknown [facility] Other (6 sources) Clavulanate; Translations: [clavulanic acid] Drug Allergy 10-29-19 [address] [facility] (1 source) Ciprofloxacin Drug Allergy 05-26-20 20 [facility] (1 source) Amoxicillin Drug Allergy 04-04-[address] [facility] (1 source) Povidone-Iodine Drug Allergy 04-04-[address] [facility] (4 sources) Sulfamethoxazole Drug Allergy 04-04-20 [address] Unknown [address] [facility] (1 source) Sulfonamides (Antibiotic) Drug allergy (disorder) 04-04-[address] [facility] (4 sources) Trimethoprim Drug Allergy 04-04-[address] [facility] (3 sources) AMOXICILLIN-POT CLAVULANATE; Translations: [AMOXICILLIN-POT CLAVULANATE] Propensity to adverse reactions to drug (disorder) 06-13-20 [facility] Rep[facility] (2 sources) Sulfonamides (Antibiotic); Translations: [sulfa drugs] Drug allergy Eruption of skin (disorder) [facility] (1 source) carvedilol; Translations: [CARVEDILOL] Drug Allergy 12-21-19 [facility] (1 source) Cephalexin; Translations: [CEPHALEXIN] Drug Allergy 06-13-20 14 [facility] (1 source) Ciprofloxacin; Translations: [CIPROFLOXACIN] Drug Allergy 10-11-19 [facility] (1 source) Iodine; Translations: [IODINE] Drug Allergy 11-28-19 [facility] (1 source) pregabalin; Translations: [PREGABALIN] Drug Allergy 10-11-19 [facility] (1 source) Sulfamethoxazole / Trimethoprim; Translations: [SULFAMETHOXAZOLE-T RIMETHOPRIM] Drug Allergy 11-28-19 [facility] Medications Current Medications Medication [...] 02/12/24 Status: Ordered Start: 10-28-2022 End: 06-30-2023 Fgtyousyzk-Llncekuvyxpct-Nkb f 50-325-40 mg capsule Discontinued 1 CAP [...] Agonist/Antagonist Start: 02-12-2024 butorphanol 10 mg/mL Nasal [place] = 1 spray(s), Nasal, Daily, PRN as [...] Corticosteroid, beta2-Adrenergi c Agonist Start: 03-26-20 End: 01-15-20 Fluticasone Furoate-Vilanterol (Breo Ellipta) 100-25 mcg/dose blister [...] oral tablet (20 sources) l-Thyroxine Star t: 0511-12 take 1 tablet by mouth once daily [...] therapy Start: 02-12-2024 take 1 capsule by [facility] once daily Linzess 290 mcg oral capsule 290 mcg = 1 cap(s), Oral, Daily, Refills(s) 0 Start Date: 02/12/24 Status: Ordered Start: 10-28-2022 End: 10-02-2024 Linaclotide (Linzess) 290 mc g capsule Discontinued 290 MCG PO Every 48 hours October 28, 2022 12:00am October 02, 2024 2:58pm Start: 10-28-2022 take 1 capsule by [facility] once daily Linaclotide (Linzess) 290 [...] 26, 2024 12:09pm take [address] [facility] every twenty-four hours Liothyronine Sodium 25 MCG [...] 02-12-2024 take 3 tablets by mo [facility] once daily primidone 50 mg Tab 150 [...] 2023 12:34am take 3 tablets by mo [facility] twice [...] 30, 2023 1:30am [facility] needed Dicyclomine HCl [...] 26, 2024 12:05pm take 1 capsule by mo [facility] every twelve hours DULoxetine HCl 60 MG [...] with food Orally Twice a day Not-Taking/PRN Hb-Dvhvvuy-Qva-Iron Fm-Fa-Vitk (Multi For Her) 18 mg iron-600 mcg-80 mcg Tablet (5 sources) Start: 08-31-2018 End: 06-30-2023 take 1 tablet by mouth once daily Th-Izewmtu-Fzd-Iron Fm-Fa-Vitk (Multi For Her) 18 mg iron-600 mcg-80 mcg Tablet Discontinued 1 TAB PO Daily August 31, 2018 1:00am June 30, 2023 1:26am Start: 08-31-2018 End: 06-30-2023 take 1 tablet by mouth once daily Jh-Uhikqef-Hgj-Iron Fm-Fa-Vitk (Multi For Her) 18 mg iron-600 mcg-80 mcg Tablet Discontinued 1 TAB PO Daily August 31, 2018 12:00am June 30, 2023 12:26am Start: 08-31-2018 take 1 tablet by joseph th once daily Pd-Ieubjoc-Rol-Iron Fm-Fa-Vitk (Multi For Her) 18 mg iron-600 [...] 02-12-2024 take 1 tablet by joseph th once daily Protonix 40 mg Tab-DR 40 [...] In Packet Discontinued 30 GM PO Daily 30 September 04, 2018 12:00am June 30, 2023 [...] disease (2 sources) Atherosclerotic heart disease of [place] coronary artery without angina pectoris; Translations: [Coronary [...] medical drugs (1 source) Adverse effect of qvwldlbmmbk-cbyttjmugj-n nzyme inhibitors, initial encounter; Translations: [ADVERSE EFFECT [...] aftercare (5 sources) Polypharmacy ; Translations: [Other long term care social worker (current) drug therapy] 09-04-2018 Episodic Other aftercare (1 source) Other care home (current) drug therapy; Translations: [OTH PRODUCT AMBASSADOR 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 THERAPY] Onset: 3 Episodic Other [...] on 01-02-2025 Bilirubin Ql (U) Negative NEGATIVE [facility] Glucose (U) [Mass/Vol] Negative NEGATIVE [facility] Ketones Ql (U) Negative NEGATIVE [facility] pH (U) 7.0 [pH] 5.0-9.[address] [facility] Specific gravity (U) [Rel density] <=1.005 Abnormal 1.005-1.[address] [facility] Urobilinogen Qn (U) 0.2 {Ligia'U}/dL 0.2-1.[address] [facility] Magnesium [Mass/Vol] 2.9 mg/dL High 1.8-2.4 [facility] Urate [Mass/Vol] 5.8 mg/dL 2.6-6.0 [facility] Laboratory - Specimen inform ationOrdered By: Raeann Kirkpatrick on 01-02-2025 Appearance (U) CLEAR CLEAR [facility] Color (U) LT. YELLOW YELLOW [facility] Laboratory - UrinalysisOrder ed By: Raeann Kirkpatrick on 01-02-2025 Leukocyte esterase Test strip Ql (U) TRACE Abnormal NEGATIVE [facility] Nitrite Ql (U) Negative NEGATIVE [facility] Protein (U) [Mass/Vol] 11.2 mg/dL <=11.9 [facility] Protein Ql (U) Negative NEG/TRACE [facility] Microalbumin [Mass/volume] i n UrineOrdered By: Raeann Kirkpatrick on 01-02-2025 Albumin DL <= 20 mg/L (U) [Mass/Vol] mg/dL <=30.[address] [facility] No Panel InformationOrdered By: Raeann Kirkpatrick on 01-02-2025 Urine Occult Blood TRACE-I NEGATIVE [facility] Urine Random Creatinine 34.82 mg/dL 20.00-300. [address] [facility] 25-Hydroxy Vitamin D Total 69.4 ng/mL [facility] Comment on above: <20 ng/mL Vit D defi cient20-<30 ng/mL Vit D uphkqqqifyer09-090 ng/mL Vit D sufficient>100 ng/mL Potential Toxicity Parathyroid Hormone (Intact) 87 pg/mL Abnormal 15-[address] [facility] Comment on above: Performed at: [address] [id number] Director: Josué Crouch PhD, Phone: [phone] Phosphorus Level 5.2 mg/dL High 2.6-4.7 [facility] Urine protein/creatinine rat ioOrdered By: Raeann Kirkpatrick on 01-02-2025 Protein/Creatinine (U) [Ratio] 0.[address] [facility] Office Visiton 10-11-2024 Follow-up visit [id number] Loren Moser Ivy 1960 Date Provider Department Center 10/11/2024 Kasi-BENJIE DANG [facility] Family History Problem Relation Age of Onset Stroke Mother Heart failure Father Family Status - Relation Status Age at Mother Father Sister Brother Alive Level of Service:20063 [place] OFFICE/OUTPATIENT ESTABLISHED LOW MDM 20 MIN Normal [facility] Follow-Upon 09-09-2024 Follow-Up [id number] Loren Moser 1960 Provider Department Center 09/09/2024 MATTHEW MONTEIRO MP ORTHO MPORTHO Family History Family history unknown: Yes Level of Service:48317 [place] OFFICE/OUTPATIENT ESTABLISHED LOW MDM 20 MIN (GC) Normal [facility] Laboratory - Chemistry and C hemistry - challengeon 07-18-2024 Bilirubin Ql (U) Negative NEGATIVE [facility] Glucose (U) [Mass/Vol] Negative NEGATIVE [facility] Ketones Ql (U) Negative NEGATIVE [facility] pH (U) 5.5 [pH] 5.0-9.[address] [facility] Specific gravity (U) [Rel density] 1.010 1.005-1.[address] [facility] Urobilinogen Qn (U) 0.2 {Ligia'U}/dL 0.2-1.[address] [facility] Magnesium [Mass/Vol] 2.0 mg/dL 1.8-2.4 [facility] Urate [Mass/Vol] 7.8 mg/dL High 2.6-6.0 [facility] Laboratory - Specimen inform ationon 07-18-2024 Appearance (U) CLEAR CLEAR [facility] Color (U) LT. YELLOW YELLOW [facility] Laboratory - Urinalysison Leukocyte esterase Test strip Ql (U) Negative NEGATIVE [facility] Nitrite Ql (U) Negative NEGATIVE [facility] Protein (U) [Mass/Vol] 7.6 mg/dL <=11.9 [facility] Ql (U) Negative NEG/TRACE [facility] Microalbumin [Mass/volume] i n Urineon 07-18-2024 Albumin DL <= 20 mg/L (U) [Mass/Vol] Microalbumin [Mass/volume] in Urine <=30.[address] [facility] No Panel Informationon 07-18 Urine Occult Blood Negative NEGATIVE [facility] Urine Random Creatinine 19.27 mg/dL Low 20.00-300. [address] [facility] 25-Hydroxy Vitamin D Total 49.9 ng/mL [facility] Comment on above: <20 ng/mL Vit D defi cient20-<30 ng/mL Vit D cmpxqasguino52-899 ng/mL Vit D sufficient>100 ng/mL Potential Toxicity Parathyroid Hormone (Intact) 266 pg/mL Abnormal 15-[address] [facility] Comment on above: Performed at: [facility] [employer] [place] [id number] Director: Josué Crouch PhD, Phone: [phone] Phosphorus Level 5.3 mg/dL High 2.6-4.7 [facility] Urine protein/creatinine rat ioon 07-18-2024 Protein/Creatinine (U) [Ratio] Urine protein/creatinine ratio [facility] Office Visiton 03-27-2024 Follow-up visit [id number] Loren Moser 1960 F Date Provider Department [facility] Family History Family history unknown: Yes Level of Service:61346 [place] OFFICE/OUTPATIENT ESTABLISHED LOW MDM 20 MIN Normal [facility] Ambulatory Visit Summaryon 0 03-05-2024 Ambulatory [...] mg Tab) butorphanol (butorphanol 10 mg/mL Nasal [place]an[place]) cyanocobalamin (cyanocobalamin 1000 mcg/mL Inj) desvenlafaxine (desvenlafaxine [...] Unchanged butorphanol (butorphanol 10 mg/ mL Nasal Quan[place]) 1 Sprays Nasal Inhalation Every day as [...] hypertension Bilate (more content not included)... Normal [facility] Magnesiumon 01-30-2024 Magnesium [Mass/Vol] 2.0 mg/dL Normal 1.6-2.4 [facility] Comment on above: Performed By: #### C OBIE CMPX #### [employer] [address] [place] [address] Tank Inspector: Michael Chen MD CBC with Diffon 01-29-2024 Abs. Basophil 0.00 k/uL Normal 0.0-0.[address] [facility] Comment on above: Performed By: #### C OBIE CMPX #### [employer] [address] [place] [address] Tank Inspector: Michael Chen MD Abs.Imm.Granulocyte 0.09 k/uL Normal 0.00-0.[address] [facility] Comment on above: Performed By: #### C OBIE CMPX #### [employer] [address] [place], [place] [id number] Tank Inspector: Michael Chen MD Abs.Neutrophil (Seg) 6.87 k/uL Normal 1.8-7.7 [facility] Comment on above: Performed By: #### C OBIE CMPX #### [address] [address] Tank Inspector: Michael Chen MD Basophils/100 WBC (Bld) 0 % Normal 0-[address] [facility] Comment on above: Performed By: #### C DP, CMPX #### [address] [address] Tank Inspector: Michael Chen MD Eosinophils (Bld) [#/Vol] 0.26 10*3/uL Normal 0.0-0.[address] [facility] Comment on above: Performed By: #### C DP, CMPX #### [address] [address] Tank Inspector: Michael Chen MD Eosinophils/100 WBC (Bld) 3 % Normal 1-[address] [facility] Comment on above: Performed By: #### C DP, CMPX #### [address] [address] Tank Inspector: Michael Chen MD Immature granulocytes/100 WBC (Bld) 1 % High [address] [facility] Comment on above: Performed By: #### C DP, CMPX #### [address] [address] Tank Inspector: Michael Chen MD Lymphocytes (Bld) [#/Vol] 0.95 10*3/uL Low 1.0-4.[address] [facility] Comment on above: Performed By: #### C DP, CMPX #### [address] [address] Tank Inspector: Michael Chen MD Lymphocytes/100 WBC (Bld) 11 % Low 24-[address] [facility] Comment on above: Performed By: #### C DP, CMPX #### [address] [address] Tank Inspector: Michael Chen MD Monocytes (Bld) [#/Vol] 0.43 10*3/uL Normal 0.1-0.[address] [facility] Comment on above: Performed By: #### C DP, CMPX #### [address] [address] Tank Inspector: Michael Chen MD Monocytes/100 WBC (Bld) 5 % Normal 1-[address] [facility] Comment on above: Performed By: #### C DP, CMPX #### [address] [address] Tank Inspector: Michael Chen MD Morphology Pedro (Bld) [Interp] Normal Normal [facility] Comment on above: Performed By: #### C DP, CMPX #### [place] [address] Tank Inspector: Michael Chen MD Neutrophil (Seg) 80 % High 36-66 [facility] Comment on above: Performed By: #### C DP, CMPX #### [address] [address] Tank Inspector: Michael Chen MD Platelet, Fluoresc. 288 k/uL Normal 138-[address] [facility] Comment on above: Performed By: #### C DP, CMPX #### [place] [address] Tank Inspector: Michael Chen MD PLT, Immature Fract. 1.5 % Normal 1.1-10.3 [facility] Comment on above: Performed By: #### C DP, CMPX #### [address] [address] Tank Inspector: Michael Chen MD Erythrocyte distribution width (RBC) [Ratio] 13.6 % Normal 11.8-14.[address] [facility] Comment on above: Performed By: #### C DP, CMPX #### [address] [address] Tank Inspector: Michael Chen MD Hematocrit (Bld) [Volume fraction] 25.9 % Low 36.3-47.[address] [facility] Comment on above: Performed By: #### C DP, CMPX #### [address] [address] Tank Inspector: Michael Chen MD Hemoglobin (Bld) [Mass/Vol] 7.8 g/dL Low 11.9-15.[address] [facility] Comment on above: Performed By: #### C DP, CMPX #### [address] [address] Tank Inspector: Michael Chen MD MCH (RBC) [Entitic mass] 29.8 pg Normal 25.2-33.[address] [facility] Comment on above: Performed By: #### C DP, CMPX #### [address] [address] Tank Inspector: Michael Chen MD MCHC (RBC) [Mass/Vol] 30.1 g/dL Normal 28.4-34.8 [facility] Comment on above: Performed By: #### C DP, CMPX #### [address] [address] Tank Inspector: Michael Chen MD MCV (RBC) [Entitic vol] 98.9 fL Normal 82.6-102.[address] [facility] Comment on above: Performed By: #### C DP, CMPX #### [address] [address] Tank Inspector: Michael Chen MD NRBC Automated 0.0 per 100 WBC Normal 0.[address] [facility] Comment on above: Performed By: #### C DP, CMPX #### [address] [address] Tank Inspector: Michael Chen MD Platelet Count See Reflexed IPF Result Normal 138-[address] [facility] Comment on above: Performed By: #### C DP, CMPX #### [facility] [address] [place] [address] Tank Inspector: Michael Chen MD RBC (Bld) [#/Vol] 2.62 10*6/uL Low 3.95-5.[address] [facility] Comment on above: Performed By: #### C DP, CMPX #### [facility] [employer] [address] [place] [address] Tank Inspector: Michael Chen MD WBC (Bld) [#/Vol] 8.6 10*3/uL Normal 3.5-11.[address] [facility] Comment on above: Performed By: #### C DP, CMPX #### [facility] [address] [place] [address] Tank Inspector: Michael Chen MD CTA HEAD NECK W [...] MD 01/29/24 Final result Normal [facility] Comp Metabolic Pr/rfx MGon 0 01-29-2024 Albumin [Mass/Vol] 3.0 g/dL Low 3.5-5.[address] [facility] Comment on above: Performed By: #### C OBIE CMPX #### [employer] [facility] [place], [place] [id number] Tank Inspector: Michael Chen MD Albumin/Glob Ratio 1.0 Normal 1.0-2.[address] [facility] Comment on above: Performed By: #### C OBIE CMPX #### [facility] [place], [place] [id number] Tank Inspector: Michael Chen MD Alkaline Phos 205 U/L High 35-[address] [facility] Comment on above: Performed By: #### C OBIE CMPX #### [address] [address] Tank Inspector: Michael Chen MD ALT [Catalytic activity/Vol] U/L Low 10-[address] [facility] Comment on above: Performed By: #### C DP, CMPX #### [address] [address] Tank Inspector: Michael Chen MD Anion gap [Moles/Vol] 11 mmol/L Normal 9-16 [facility] Comment on above: Performed By: #### C DP, CMPX #### [address] [address] Tank Inspector: Michael Chen MD AST [Catalytic activity/Vol] 27 U/L Normal 10-[address] [facility] Comment on above: Performed By: #### C DP, CMPX #### [address] [address] Tank Inspector: Michael Chen MD Bilirubin [Mass/Vol] 0.2 mg/dL Normal 0.00-1.20 [facility] Comment on above: Performed By: #### C DP, CMPX #### [address] [address] Tank Inspector: Michael Chen MD Calcium [Mass/Vol] 8.0 mg/dL Low 8.6-10.[address] [facility] Comment on above: Performed By: #### C DP, CMPX #### [address] [address] Tank Inspector: Michael Chen MD Chloride [Moles/Vol] 101 mmol/L Normal 98-107 [facility] Comment on above: Performed By: #### C DP, CMPX #### [address] [address] Tank Inspector: Michael Chen MD CO2 [Moles/Vol] 19 mmol/L Low 20-[address] [facility] Comment on above: Performed By: #### C DP, CMPX #### [address] [address] Tank Inspector: Michael Chen MD Creatinine [Mass/Vol] 1.6 mg/dL High 0.50-0.90 [facility] Comment on above: Performed By: #### C DP, CMPX #### [address] [address] Tank Inspector: Michael Chen MD GFR/1.73 sq M.predicted among non-blacks MDRD (S/P/Bld) [Vol rate/Area] 38 mL/min/{1.73_m2} Low >[address] [facility] Comment on above: Result Comment: [...] Performed By: #### C DP, CMPX #### [address] [address] Tank Inspector: Michael Chen MD Glucose [Mass/Vol] 90 mg/dL Normal 74-[address] [facility] Comment on above: Performed By: #### C DP, CMPX #### [address] [address] Tank Inspector: Michael Chen MD Potassium [Moles/Vol] 4.4 mmol/L Normal 3.7-5.3 [facility] Comment on above: Performed By: #### C DP, CMPX #### [address] [address] Tank Inspector: Michael Chen MD Protein [Mass/Vol] 5.4 g/dL Low 6.6-8.[address] [facility] Comment on above: Performed By: #### C DP, CMPX #### [address] [address] Tank Inspector: Michael Chen MD Sodium [Moles/Vol] 131 mmol/L Low 136-[address] [facility] Comment on above: Performed By: #### C DP, CMPX #### [facility] [address] [place] [id number] Tank Inspector: Michael Chen MD Urea nitrogen [Mass/Vol] 46 mg/dL High 8-[address] [facility] Comment on above: Performed By: #### C DP, CMPX #### [address] [address] Tank Inspector: Michael Chen MD Magnesiumon 01-29-2024 Magnesium [Mass/Vol] 2.1 mg/dL Normal 1.6-2.4 [facility] Comment on above: Performed By: #### M G #### [address] [address] Tank Inspector: Michael Chen MD Basic Metab w/rfx MGon 01-27 Anion gap [Moles/Vol] 10 mmol/L Normal 9-16 [facility] Comment on above: Performed By: #### C DP, CMPX #### [address] [address] Tank Inspector: Michael Chen MD Calcium [Mass/Vol] 7.5 mg/dL Low 8.6-10.[address] [facility] Comment on above: Performed By: #### C DP, CMPX #### [facility] [address] [place] [address] Tank Inspector: Michael Chen MD Chloride [Moles/Vol] 101 mmol/L Normal 98-107 [facility] Comment on above: Performed By: #### C DP, CMPX #### [facility] [address] [place] [address] Tank Inspector: Michael Chen MD CO2 [Moles/Vol] 22 mmol/L Normal 20-[address] [facility] Comment on above: Performed By: #### C DP, CMPX #### [address] [address] Tank Inspector: Michael Chen MD Creatinine [Mass/Vol] 1.8 mg/dL High 0.50-0.90 [facility] Comment on above: Performed By: #### C DP, CMPX #### [address] [address] Tank Inspector: Michael Chen MD GFR/1.73 sq M.predicted among non-blacks MDRD (S/P/Bld) [Vol rate/Area] 33 mL/min/{1.73_m2} Low >[address] [facility] Comment on above: Result Comment: [...] Performed By: #### C DP, CMPX #### [address] [address] Tank Inspector: Michael Chen MD Glucose [Mass/Vol] 92 mg/dL Normal 74-[address] [facility] Comment on above: Performed By: #### C DP, CMPX #### [address] [address] Tank Inspector: Michael Chen MD Potassium [Moles/Vol] 4.6 mmol/L Normal 3.7-5.3 [facility] Comment on above: Performed By: #### C DP, CMPX #### [place] [address] Tank Inspector: Michael Chen MD Sodium [Moles/Vol] 133 mmol/L Low 136-[address] [facility] Comment on above: Performed By: #### C DP, CMPX #### [place] [address] Tank Inspector: Michael Chen MD Urea nitrogen [Mass/Vol] 46 mg/dL High 8-[address] [facility] Comment on above: Performed By: #### C DP, CMPX #### [place] [address] Tank Inspector: Michael Chen MD CBC with Diffon 01-28-2024 Abs. Basophil <0.03 Normal 0.00-0.[address] [facility] Comment on above: Performed By: #### C DP, CMPX #### [place] [address] Tank Inspector: Michael Chen MD Abs.Imm.Granulocyte 0.13 k/uL Normal 0.00-0.[address] [facility] Comment on above: Performed By: #### C DP, CMPX #### [place] [address] Tank Inspector: Michael Chen MD Abs.Neutrophil (Seg) 4.37 k/uL Normal 1.50-8.10 [facility] Comment on above: Performed By: #### C DP, CMPX #### [place] [address] Tank Inspector: Michael Chen MD Basophils/100 WBC (Bld) 0 % Normal 0-[address] [facility] Comment on above: Performed By: #### C DP, CMPX #### [address] [address] Tank Inspector: Michael Chen MD Eosinophils (Bld) [#/Vol] 0.25 10*3/uL Normal 0.00-0.[address] [facility] Comment on above: Performed By: #### C DP, CMPX #### [address] [address] Tank Inspector: Michael Chen MD Eosinophils/100 WBC (Bld) 4 % Normal 1-[address] [facility] Comment on above: Performed By: #### C DP, CMPX #### [address] [address] Tank Inspector: Michael Chen MD Immature granulocytes/100 WBC (Bld) 2 % High [address] [facility] Comment on above: Performed By: #### C DP, CMPX #### [address] [address] Tank Inspector: Michael Chen MD Lymphocytes (Bld) [#/Vol] 1.15 10*3/uL Normal 1.10-3.[address] [facility] Comment on above: Performed By: #### C DP, CMPX #### [address] [address] Tank Inspector: Michael Chen MD Lymphocytes/100 WBC (Bld) 18 % Low 24-[address] [facility] Comment on above: Performed By: #### C DP, CMPX #### [address] [address] Tank Inspector: Michael Chen MD Monocytes (Bld) [#/Vol] 0.59 10*3/uL Normal 0.10-1.[address] [facility] Comment on above: Performed By: #### C DP, CMPX #### [address] [address] Tank Inspector: Michael Chen MD Monocytes/100 WBC (Bld) 9 % Normal 3-[address] [facility] Comment on above: Performed By: #### C DP, CMPX #### [address] [address] Tank Inspector: Michael Chen MD Neutrophil (Seg) 67 % High 36-65 [facility] Comment on above: Performed By: #### C DP, CMPX #### [address] [address] Tank Inspector: Michael Chen MD Erythrocyte distribution width (RBC) [Ratio] 13.6 % Normal 11.8-14.[address] [facility] Comment on above: Performed By: #### C DP, CMPX #### [address] [address] Tank Inspector: Michael Chen MD Hematocrit (Bld) [Volume fraction] 24.0 % Low 36.3-47.[address] [facility] Comment on above: Performed By: #### C DP, CMPX #### [address] [address] Tank Inspector: Michael Chen MD Hemoglobin (Bld) [Mass/Vol] 7.1 g/dL Low 11.9-15.[address] [facility] Comment on above: Performed By: #### C DP, CMPX #### [address] [address] Tank Inspector: Michael Chen MD MCH (RBC) [Entitic mass] 29.6 pg Normal 25.2-33.[address] [facility] Comment on above: Performed By: #### C DP, CMPX #### [address] [address] Tank Inspector: Michael Chen MD MCHC (RBC) [Mass/Vol] 29.6 g/dL Normal 28.4-34.8 [facility] Comment on above: Performed By: #### C DP, CMPX #### [address] [address] Tank Inspector: Michael Chen MD MCV (RBC) [Entitic vol] 100.0 fL Normal 82.6-102.[address] [facility] Comment on above: Performed By: #### C DP, CMPX #### [address] [address] Tank Inspector: Michael Chen MD NRBC Automated 0.0 per 100 WBC Normal 0.[address] [facility] Comment on above: Performed By: #### C DP, CMPX #### [address] [address] Tank Inspector: Michael Chen MD Platelet mean volume (Bld) [Entitic vol] 9.2 fL Normal 8.1-13.[address] [facility] Comment on above: Performed By: #### C DP, CMPX #### [address] [address] Tank Inspector: Michael Chen MD Platelets (Bld) [#/Vol] 222 10*3/uL Normal 138-[address] [facility] Comment on above: Performed By: #### C DP, CMPX #### [address] [address] Tank Inspector: Michael Chen MD RBC (Bld) [#/Vol] 2.40 10*6/uL Low 3.95-5.[address] [facility] Comment on above: Performed By: #### C DP, CMPX #### [address] [address] Tank Inspector: Michael Chen MD WBC (Bld) [#/Vol] 6.5 10*3/uL Normal 3.5-11.[address] [facility] Comment on above: Performed By: #### C DP, CMPX #### [address] [address] Tank Inspector: Michael Chen MD Magnesiumon 01-28-2024 Magnesium [Mass/Vol] 1.6 mg/dL Normal 1.6-2.4 [facility] Comment on above: Performed By: #### C DP, CMPX #### [address] [address] Tank Inspector: Michael Chen MD Basic Metab w/rfx MGon 01-26 Anion gap [Moles/Vol] 11 mmol/L Normal 9-16 [facility] Comment on above: Performed By: #### C DP, CMPX #### [address] [address] Tank Inspector: Michael Chen MD Calcium [Mass/Vol] 7.4 mg/dL Low 8.6-10.[address] [facility] Comment on above: Performed By: #### C DP, CMPX #### [address] [address] Tank Inspector: Michael Chen MD Chloride [Moles/Vol] 102 mmol/L Normal 98-107 [facility] Comment on above: Performed By: #### C DP, CMPX #### [address] [address] Tank Inspector: Michael Chen MD CO2 [Moles/Vol] 21 mmol/L Normal 20-[address] [facility] Comment on above: Performed By: #### C DP, CMPX #### [facility] [address] [place] [address] Tank Inspector: Michael Chen MD Creatinine [Mass/Vol] 1.6 mg/dL High 0.50-0.90 [facility] Comment on above: Performed By: #### C DP, CMPX #### [address] [address] Tank Inspector: Michael Chen MD GFR/1.73 sq M.predicted among non-blacks MDRD (S/P/Bld) [Vol rate/Area] 36 mL/min/{1.73_m2} Low >[address] [facility] Comment on above: Result Comment: [...] Performed By: #### C DP, CMPX #### [place] [address] Tank Inspector: Michael Chen MD Glucose [Mass/Vol] 169 mg/dL High 74-[address] [facility] Comment on above: Performed By: #### C DP, CMPX #### [place] [address] Tank Inspector: Michael Chen MD Potassium [Moles/Vol] 4.4 mmol/L Normal 3.7-5.3 [facility] Comment on above: Performed By: #### C DP, CMPX #### [facility] [address] [place] [address] Tank Inspector: Michael Chen MD Sodium [Moles/Vol] 134 mmol/L Low 136-[address] [facility] Comment on above: Performed By: #### C DP, CMPX #### [facility] [address] [place] [address] Tank Inspector: Michael Chen MD Urea nitrogen [Mass/Vol] 42 mg/dL High 8-[address] [facility] Comment on above: Performed By: #### C DP, CMPX #### [address] [address] Tank Inspector: Michael Chen MD CBC with Diffon 01-27-2024 Abs. Basophil <0.03 Normal 0.00-0.[address] [facility] Comment on above: Performed By: #### C DP, CMPX #### [address] [address] Tank Inspector: Michael Chen MD Abs.Imm.Granulocyte 0.06 k/uL Normal 0.00-0.[address] [facility] Comment on above: Performed By: #### C DP, CMPX #### [address] [address] Tank Inspector: Michael Chen MD Abs.Neutrophil (Seg) 5.93 k/uL Normal 1.50-8.10 [facility] Comment on above: Performed By: #### C DP, CMPX #### [address] [address] Tank Inspector: Michael Chen MD Basophils/100 WBC (Bld) 0 % Normal 0-[address] [facility] Comment on above: Performed By: #### C DP, CMPX #### [address] [address] Tank Inspector: Michael Chen MD Eosinophils (Bld) [#/Vol] 0.17 10*3/uL Normal 0.00-0.[address] [facility] Comment on above: Performed By: #### C DP, CMPX #### [address] [address] Tank Inspector: Michael Chen MD Eosinophils/100 WBC (Bld) 2 % Normal 1-[address] [facility] Comment on above: Performed By: #### C DP, CMPX #### [facility] [address] [place] [address] Tank Inspector: Michael Chen MD Erythrocyte distribution width (RBC) [Ratio] 13.8 % Normal 11.8-14.[address] [facility] Comment on above: Performed By: #### C DP, CMPX #### [address] [address] Tank Inspector: Michael Chen MD Hematocrit (Bld) [Volume fraction] 26.3 % Low 36.3-47.[address] [facility] Comment on above: Performed By: #### C DP, CMPX #### [place] [address] Tank Inspector: Michael Chen MD Hemoglobin (Bld) [Mass/Vol] 7.8 g/dL Low 11.9-15.[address] [facility] Comment on above: Performed By: #### C DP, CMPX #### [place] [address] Tank Inspector: Michael Chen MD Immature granulocytes/100 WBC (Bld) 1 % High [address] [facility] Comment on above: Performed By: #### C DP, CMPX #### [address] [address] Tank Inspector: Michael Chen MD Lymphocytes (Bld) [#/Vol] 0.79 10*3/uL Low 1.10-3.[address] [facility] Comment on above: Performed By: #### C DP, CMPX #### [address] [address] Tank Inspector: Michael Chen MD Lymphocytes/100 WBC (Bld) 11 % Low 24-[address] [facility] Comment on above: Performed By: #### C DP, CMPX #### [address] [address] Tank Inspector: Michael Chen MD MCH (RBC) [Entitic mass] 29.8 pg Normal 25.2-33.[address] [facility] Comment on above: Performed By: #### C DP, CMPX #### [address] [address] Tank Inspector: Michael Chen MD MCHC (RBC) [Mass/Vol] 29.7 g/dL Normal 28.4-34.8 [facility] Comment on above: Performed By: #### C DP, CMPX #### [address] [address] Tank Inspector: Michael Chen MD MCV (RBC) [Entitic vol] 100.4 fL Normal 82.6-102.[address] [facility] Comment on above: Performed By: #### C DP, CMPX #### [address] [address] Tank Inspector: Michael Chen MD Monocytes (Bld) [#/Vol] 0.38 10*3/uL Normal 0.10-1.[address] [facility] Comment on above: Performed By: #### C DP, CMPX #### [address] [address] Tank Inspector: Michael Chen MD Monocytes/100 WBC (Bld) 5 % Normal 3-[address] [facility] Comment on above: Performed By: #### C DP, CMPX #### [address] [address] Tank Inspector: Michael Chen MD Neutrophil (Seg) 81 % High 36-65 [facility] Comment on above: Performed By: #### C DP, CMPX #### [address] [address] Tank Inspector: Michael Chen MD NRBC Automated 0.0 per 100 WBC Normal 0.[address] [facility] Comment on above: Performed By: #### C DP, CMPX #### [address] [address] Tank Inspector: Michael Chen MD Platelet mean volume (Bld) [Entitic vol] 9.6 fL Normal 8.1-13.[address] [facility] Comment on above: Performed By: #### C DP, CMPX #### [address] [address] Tank Inspector: Michael Chen MD Platelets (Bld) [#/Vol] 239 10*3/uL Normal 138-[address] [facility] Comment on above: Performed By: #### C DP, CMPX #### [address] [address] Tank Inspector: Michael Chen MD RBC (Bld) [#/Vol] 2.62 10*6/uL Low 3.95-5.[address] [facility] Comment on above: Performed By: #### C DP, CMPX #### [address] [address] Tank Inspector: Michael Chen MD WBC (Bld) [#/Vol] 7.3 10*3/uL Normal 3.5-11.[address] [facility] Comment on above: Performed By: #### C DP, CMPX #### [address] [address] Tank Inspector: Michael Chen MD CT CERVICAL SPINE WO [...] MD 01/27/24 Final result Normal [facility] Basic Metab w/rfx MGon 01-25 Anion gap [Moles/Vol] 8 mmol/L Low 9-16 [facility] Comment on above: Performed By: #### B MPX, CDP #### [employer] [address] [place] [address] Tank Inspector: Michael Chen MD Calcium [Mass/Vol] 7.8 mg/dL Low 8.6-10.[address] [facility] Comment on above: Performed By: #### B MPX, CDP #### [facility] [address] [place] [address] Tank Inspector: Michael Chen MD Chloride [Moles/Vol] 104 mmol/L Normal 98-107 [facility] Comment on above: Performed By: #### B MPX, CDP #### [facility] [address] [place] [address] Tank Inspector: Michael Chen MD CO2 [Moles/Vol] 23 mmol/L Normal 20-[address] [facility] Comment on above: Performed By: #### B MPX, CDP #### [address] [address] Tank Inspector: Michael Chen MD Creatinine [Mass/Vol] 1.6 mg/dL High 0.50-0.90 [facility] Comment on above: Performed By: #### B MPX, CDP #### [address] [address] Tank Inspector: Michael Chen MD GFR/1.73 sq M.predicted among non-blacks MDRD (S/P/Bld) [Vol rate/Area] 38 mL/min/{1.73_m2} Low >[address] [facility] Comment on above: Result Comment: [...] Performed By: #### B MPX, CDP #### [address] [address] Tank Inspector: Michael Chen MD Glucose [Mass/Vol] 109 mg/dL High 74-[address] [facility] Comment on above: Performed By: #### B MPX, CDP #### [facility] [address] [place] [address] Tank Inspector: Michael Chen MD Potassium [Moles/Vol] 5.3 mmol/L Normal 3.7-5.3 [facility] Comment on above: Performed By: #### B MPX, CDP #### [facility] [address] [place] [address] Tank Inspector: Michael Chen MD Sodium [Moles/Vol] 135 mmol/L Low 136-[address] [facility] Comment on above: Performed By: #### B MPX, CDP #### [facility] [address] [place] [address] Tank Inspector: Michael Chen MD Urea nitrogen [Mass/Vol] 40 mg/dL High 8-[address] [facility] Comment on above: Performed By: #### B MPX, CDP #### [facility] [address] [place] [address] Tank Inspector: Michael Chen MD Anion gap [Moles/Vol] 11 mmol/L Normal 9-16 [facility] Comment on above: Performed By: #### B MPX, CDP #### [facility] [address] [place] [address] Tank Inspector: Michael Chen MD Calcium [Mass/Vol] 7.6 mg/dL Low 8.6-10.[address] [facility] Comment on above: Performed By: #### B MPX, CDP #### [facility] [address] [place] [address] Tank Inspector: Michael Chen MD Chloride [Moles/Vol] 102 mmol/L Normal 98-107 [facility] Comment on above: Performed By: #### B MPX, CDP #### [facility] [address] [place] [address] Tank Inspector: Michael Chen MD CO2 [Moles/Vol] 20 mmol/L Normal 20-[address] [facility] Comment on above: Performed By: #### B MPX, CDP #### [facility] [address] [place] [address] Tank Inspector: Michael Chen MD Creatinine [Mass/Vol] 1.7 mg/dL High 0.50-0.90 [facility] Comment on above: Performed By: #### B MPX, CDP #### [facility] [address] [place] [address] Tank Inspector: Michael Chen MD GFR/1.73 sq M.predicted among non-blacks MDRD (S/P/Bld) [Vol rate/Area] 35 mL/min/{1.73_m2} Low >[address] [facility] Comment on above: Result Comment: [...] Performed By: #### B MPX, CDP #### [facility] [address] [place] [address] Tank Inspector: Michael Chen MD Glucose [Mass/Vol] 106 mg/dL High 74-[address] [facility] Comment on above: Performed By: #### B MPX, CDP #### [facility] [address] [place] [address] Tank Inspector: Michael Chen MD Potassium [Moles/Vol] 5.0 mmol/L Normal 3.7-5.3 [facility] Comment on above: Performed By: #### B MPX, CDP #### [facility] [address] [place] [address] Tank Inspector: Michael Chen MD Sodium [Moles/Vol] 133 mmol/L Low 136-[address] [facility] Comment on above: Performed By: #### B MPX, CDP #### [facility] [address] [place] [address] Tank Inspector: Michael Chen MD Urea nitrogen [Mass/Vol] 46 mg/dL High 8-[address] [facility] Comment on above: Performed By: #### B MPX, CDP #### [facility] [address] [place] [address] Tank Inspector: Michael Chen MD CBC with Diffon 01-26-2024 Abs. Basophil <0.03 Normal 0.00-0.[address] [facility] Comment on above: Performed By: #### B MPX, CDP #### [facility] [address] [place] [address] Tank Inspector: Michael Chen MD Abs.Imm.Granulocyte 0.13 k/uL Normal 0.00-0.[address] [facility] Comment on above: Performed By: #### B MPX, CDP #### [facility] [address] [place] [address] Tank Inspector: Michael Chen MD Abs.Neutrophil (Seg) 8.21 k/uL High 1.50-8.10 [facility] Comment on above: Performed By: #### B MPX, CDP #### [facility] [address] [place] [address] Tank Inspector: Michael Chen MD Basophils/100 WBC (Bld) 0 % Normal 0-[address] [facility] Comment on above: Performed By: #### B MPX, CDP #### [facility] [address] [place] [address] Tank Inspector: Michael Chen MD Eosinophils (Bld) [#/Vol] 0.19 10*3/uL Normal 0.00-0.[address] [facility] Comment on above: Performed By: #### B MPX, CDP #### [facility] [address] [place] [address] Tank Inspector: Michael Chen MD Eosinophils/100 WBC (Bld) 2 % Normal 1-[address] [facility] Comment on above: Performed By: #### B MPX, CDP #### [facility] [address] [place] [address] Tank Inspector: Michael Chen MD Erythrocyte distribution width (RBC) [Ratio] 13.9 % Normal 11.8-14.[address] [facility] Comment on above: Performed By: #### B MPX, CDP #### [facility] [address] [place] [address] Tank Inspector: Michael Chen MD Hematocrit (Bld) [Volume fraction] 28.3 % Low 36.3-47.[address] [facility] Comment on above: Performed By: #### B MPX, CDP #### [facility] [address] [place] [address] Tank Inspector: Michael Chen MD Hemoglobin (Bld) [Mass/Vol] 8.6 g/dL Low 11.9-15.[address] [facility] Comment on above: Performed By: #### B MPX, CDP #### [facility] [address] [place] [address] Tank Inspector: Michael Chen MD Immature granulocytes/100 WBC (Bld) 1 % High [address] [facility] Comment on above: Performed By: #### B MPX, CDP #### [facility] [address] [place] [address] Tank Inspector: Michael Chen MD Lymphocytes (Bld) [#/Vol] 1.09 10*3/uL Low 1.10-3.[address] [facility] Comment on above: Performed By: #### B MPX, CDP #### [address] [address] Tank Inspector: Michael Chen MD Lymphocytes/100 WBC (Bld) 10 % Low 24-[address] [facility] Comment on above: Performed By: #### B MPX, CDP #### [address] [address] Tank Inspector: Michael Chen MD MCH (RBC) [Entitic mass] 29.5 pg Normal 25.2-33.[address] [facility] Comment on above: Performed By: #### B MPX, CDP #### [address] [address] Tank Inspector: Michael Chen MD MCHC (RBC) [Mass/Vol] 30.4 g/dL Normal 28.4-34.8 [facility] Comment on above: Performed By: #### B MPX, CDP #### [address] [address] Tank Inspector: Michael Chen MD MCV (RBC) [Entitic vol] 96.9 fL Normal 82.6-102.[address] [facility] Comment on above: Performed By: #### B MPX, CDP #### [address] [address] Tank Inspector: Michael Chen MD Monocytes (Bld) [#/Vol] 0.85 10*3/uL Normal 0.10-1.[address] [facility] Comment on above: Performed By: #### B MPX, CDP #### [address] [address] Tank Inspector: Michael Chen MD Monocytes/100 WBC (Bld) 8 % Normal 3-[address] [facility] Comment on above: Performed By: #### B MPX, CDP #### [address] [address] Tank Inspector: Michael Chen MD Neutrophil (Seg) 79 % High 36-65 [facility] Comment on above: Performed By: #### B MPX, CDP #### [address] [address] Tank Inspector: Michael Chen MD NRBC Automated 0.0 per 100 WBC Normal 0.[address] [facility] Comment on above: Performed By: #### B MPX, CDP #### [address] [address] Tank Inspector: Michael Chen MD Platelet mean volume (Bld) [Entitic vol] 9.7 fL Normal 8.1-13.[address] [facility] Comment on above: Performed By: #### B MPX, CDP #### [address] [address] [address] Tank Inspector: Michael Chen MD Platelets (Bld) [#/Vol] 270 10*3/uL Normal 138-[address] [facility] Comment on above: Performed By: #### B MPX, CDP #### [address] [address] Tank Inspector: Michael Chen MD RBC (Bld) [#/Vol] 2.92 10*6/uL Low 3.95-5.[address] [facility] Comment on above: Performed By: #### B MPX, CDP #### [address] [address] Tank Inspector: Michael Chen MD WBC (Bld) [#/Vol] 10.5 10*3/uL Normal 3.5-11.[address] [facility] Comment on above: Performed By: #### B MPX, CDP #### [facility] [address] [place] [address] Tank Inspector: Michael Chen MD Abs. Basophil 0.03 k/uL Normal 0.00-0.[address] [facility] Comment on above: Performed By: #### B MPX, CDP #### [facility] [address] [place] [address] Tank Inspector: Michael Chen MD Abs.Imm.Granulocyte 0.08 k/uL Normal 0.00-0.[address] [facility] Comment on above: Performed By: #### B MPX, CDP #### [facility] [address] [place] [address] Tank Inspector: Michael Chen MD Abs.Neutrophil (Seg) 12.75 k/uL High 1.50-8.10 [facility] Comment on above: Performed By: #### B MPX, CDP #### [facility] [address] [place] [address] Tank Inspector: Michael Chen MD Basophils/100 WBC (Bld) 0 % Normal 0-[address] [facility] Comment on above: Performed By: #### B MPX, CDP #### [facility] [address] [place] [address] Tank Inspector: Michael Chen MD Eosinophils (Bld) [#/Vol] 0.16 10*3/uL Normal 0.00-0.[address] [facility] Comment on above: Performed By: #### B MPX, CDP #### [facility] [address] [place] [address] Tank Inspector: Michael Chen MD Eosinophils/100 WBC (Bld) 1 % Normal 1-[address] [facility] Comment on above: Performed By: #### B MPX, CDP #### [facility] [address] [place] [address] Tank Inspector: Michael Chen MD Erythrocyte distribution width (RBC) [Ratio] 13.7 % Normal 11.8-14.[address] [facility] Comment on above: Performed By: #### B MPX, CDP #### [facility] [address] [place] [address] Tank Inspector: Michael Chen MD Hematocrit (Bld) [Volume fraction] 28.8 % Low 36.3-47.[address] [facility] Comment on above: Performed By: #### B MPX, CDP #### [facility] [address] [place] [address] Tank Inspector: Michael Chen MD Hemoglobin (Bld) [Mass/Vol] 8.8 g/dL Low 11.9-15.[address] [facility] Comment on above: Performed By: #### B MPX, CDP #### [address] [address] Tank Inspector: Michael Chen MD Immature granulocytes/100 WBC (Bld) 1 % High [address] [facility] Comment on above: Performed By: #### B MPX, CDP #### [facility] [address] [place] [address] Tank Inspector: Michael Chen MD Lymphocytes (Bld) [#/Vol] 1.15 10*3/uL Normal 1.10-3.[address] [facility] Comment on above: Performed By: #### B MPX, CDP #### [facility] [address] [place] [address] Tank Inspector: Michael Chen MD Lymphocytes/100 WBC (Bld) 8 % Low 24-[address] [facility] Comment on above: Performed By: #### B MPX, CDP #### [facility] [address] [place] [address] Tank Inspector: Michael Chen MD MCH (RBC) [Entitic mass] 29.6 pg Normal 25.2-33.[address] [facility] Comment on above: Performed By: #### B MPX, CDP #### [address] [address] Tank Inspector: Michael Chen MD MCHC (RBC) [Mass/Vol] 30.6 g/dL Normal 28.4-34.8 [facility] Comment on above: Performed By: #### B MPX, CDP #### [address] [address] Tank Inspector: Michael Chen MD MCV (RBC) [Entitic vol] 97.0 fL Normal 82.6-102.[address] [facility] Comment on above: Performed By: #### B MPX, CDP #### [address] [address] Tank Inspector: Michael Chen MD Monocytes (Bld) [#/Vol] 0.77 10*3/uL Normal 0.10-1.[address] [facility] Comment on above: Performed By: #### B MPX, CDP #### [address] [address] Tank Inspector: Michael Chen MD Monocytes/100 WBC (Bld) 5 % Normal 3-[address] [facility] Comment on above: Performed By: #### B MPX, CDP #### [address] [address] Tank Inspector: Michael Chen MD Neutrophil (Seg) 85 % High 36-65 [facility] Comment on above: Performed By: #### B MPX, CDP #### [address] [address] Tank Inspector: Michael Chen MD NRBC Automated 0.0 per 100 WBC Normal 0.[address] [facility] Comment on above: Performed By: #### B MPX, CDP #### [address] [address] Tank Inspector: Michael Chen MD Platelet mean volume (Bld) [Entitic vol] 9.1 fL Normal 8.1-13.[address] [facility] Comment on above: Performed By: #### B MPX, CDP #### [address] [address] Tank Inspector: Michael Chen MD Platelets (Bld) [#/Vol] 269 10*3/uL Normal 138-[address] [facility] Comment on above: Performed By: #### B MPX, CDP #### [address] [address] Tank Inspector: Michael Chen MD RBC (Bld) [#/Vol] 2.97 10*6/uL Low 3.95-5.[address] [facility] Comment on above: Performed By: #### B MPX, CDP #### [address] [address] Tank Inspector: Michael Chen MD WBC (Bld) [#/Vol] 14.9 10*3/uL High 3.5-11.[address] [facility] Comment on above: Performed By: #### B MPX, CDP #### [address] [address] Tank Inspector: Michael Chen MD Cult,Urineon 01-26-2024 Cult,Urine Specimen Description .INDWELLING CATH URINE Special Requests FIRST INSERTION Culture NO GROWTH Report Status FINAL 01/26/[address] [facility] Comment on above: Performed By: #### U RC #### [address] [address] Tank Inspector: Michael Chen MD XR CERVICAL SPINE (2-3 [...] Edited Result - FINAL Normal [facility] Basic Metab w/rfx MGon 01-24 Anion gap [Moles/Vol] 9 mmol/L Normal 9-16 [facility] Comment on above: Performed By: #### C DP, BMPX #### [facility] [address] [place] [address] Tank Inspector: Mcihael Chen MD Calcium [Mass/Vol] 7.9 mg/dL Low 8.6-10.[address] [facility] Comment on above: Performed By: #### C DP, BMPX #### [employer] [address] [place] [address] [id number] Tank Inspector: Michael Chen MD Chloride [Moles/Vol] 105 mmol/L Normal 98-107 [facility] Comment on above: Performed By: #### C DP, BMPX #### [facility] [address] [place] [address] [phone] Tank Inspector: Michael Chen MD CO2 [Moles/Vol] 22 mmol/L Normal 20-[address] [facility] Comment on above: Performed By: #### C DP, BMPX #### [address] [address] Tank Inspector: Michael Chen MD Creatinine [Mass/Vol] 1.7 mg/dL High 0.50-0.90 [facility] Comment on above: Performed By: #### C DP, BMPX #### [address] [address] Tank Inspector: Michael Chen MD GFR/1.73 sq M.predicted among non-blacks MDRD (S/P/Bld) [Vol rate/Area] 33 mL/min/{1.73_m2} Low >[address] [facility] Comment on above: Result Comment: [...] Performed By: #### C DP, BMPX #### [address] [address] Tank Inspector: Michael Chen MD Glucose [Mass/Vol] 104 mg/dL High 74-[address] [facility] Comment on above: Performed By: #### C DP, BMPX #### [facility] [address] [place] [address] Tank Inspector: Michael Chen MD Potassium [Moles/Vol] 5.1 mmol/L Normal 3.7-5.3 [facility] Comment on above: Performed By: #### C DP, BMPX #### [address] [address] Tank Inspector: Michael Chen MD Sodium [Moles/Vol] 136 mmol/L Normal 136-[address] [facility] Comment on above: Performed By: #### C DP, BMPX #### [place] [address] Tank Inspector: Michael Chen MD Urea nitrogen [Mass/Vol] 51 mg/dL High 8-[address] [facility] Comment on above: Performed By: #### C DP, BMPX #### [place] [address] Tank Inspector: Michael Chen MD CBC with Diffon 01-25-2024 Abs. Basophil <0.03 Normal 0.00-0.[address] [facility] Comment on above: Performed By: #### C DP, BMPX #### [place] [address] Tank Inspector: Michael Chen MD Abs.Imm.Granulocyte 0.03 k/uL Normal 0.00-0.[address] [facility] Comment on above: Performed By: #### C DP, BMPX #### [place] [address] Tank Inspector: Michael Chen MD Abs.Neutrophil (Seg) 3.64 k/uL Normal 1.50-8.10 [facility] Comment on above: Performed By: #### C DP, BMPX #### [place] [address] Tank Inspector: Michael Chen MD Basophils/100 WBC (Bld) 0 % Normal 0-[address] [facility] Comment on above: Performed By: #### C DP, BMPX #### [place] [address] Tank Inspector: Michael Chen MD Eosinophils (Bld) [#/Vol] 0.23 10*3/uL Normal 0.00-0.[address] [facility] Comment on above: Performed By: #### C DP, BMPX #### [address] [address] Tank Inspector: Michael Chen MD Eosinophils/100 WBC (Bld) 4 % Normal 1-[address] [facility] Comment on above: Performed By: #### C DP, BMPX #### [place] [address] Tank Inspector: Michael Chen MD Erythrocyte distribution width (RBC) [Ratio] 13.7 % Normal 11.8-14.[address] [facility] Comment on above: Performed By: #### C DP, BMPX #### [facility] [address] [place] [address] Tank Inspector: Michael Chen MD Hematocrit (Bld) [Volume fraction] 26.8 % Low 36.3-47.[address] [facility] Comment on above: Performed By: #### C DP, BMPX #### [place] [address] Tank Inspector: Michael Chen MD Hemoglobin (Bld) [Mass/Vol] 8.0 g/dL Low 11.9-15.[address] [facility] Comment on above: Performed By: #### C DP, BMPX #### [place] [address] Tank Inspector: Michael Chen MD Immature granulocytes/100 WBC (Bld) 1 % High [address] [facility] Comment on above: Performed By: #### C DP, BMPX #### [address] [address] Tank Inspector: Michael Chen MD Lymphocytes (Bld) [#/Vol] 1.38 10*3/uL Normal 1.10-3.[address] [facility] Comment on above: Performed By: #### C DP, BMPX #### [address] [address] Tank Inspector: Michael Chen MD Lymphocytes/100 WBC (Bld) 24 % Normal 24-[address] [facility] Comment on above: Performed By: #### C DP, BMPX #### [address] [address] Tank Inspector: Michael Chen MD MCH (RBC) [Entitic mass] 29.3 pg Normal 25.2-33.[address] [facility] Comment on above: Performed By: #### C DP, BMPX #### [address] [address] Tank Inspector: Michael Chen MD MCHC (RBC) [Mass/Vol] 29.9 g/dL Normal 28.4-34.8 [facility] Comment on above: Performed By: #### C DP, BMPX #### [address] [address] Tank Inspector: Michael Chen MD MCV (RBC) [Entitic vol] 98.2 fL Normal 82.6-102.[address] [facility] Comment on above: Performed By: #### C DP, BMPX #### [address] [address] Tank Inspector: Michael Chen MD Monocytes (Bld) [#/Vol] 0.58 10*3/uL Normal 0.10-1.[address] [facility] Comment on above: Performed By: #### C DP, BMPX #### [address] [address] Tank Inspector: Michael Chen MD Monocytes/100 WBC (Bld) 10 % Normal 3-[address] [facility] Comment on above: Performed By: #### C DP, BMPX #### [address] [address] Tank Inspector: Michael Chen MD Neutrophil (Seg) 61 % Normal 36-65 [facility] Comment on above: Performed By: #### C DP, BMPX #### [address] [address] Tank Inspector: Michael Chen MD NRBC Automated 0.0 per 100 WBC Normal 0.[address] [facility] Comment on above: Performed By: #### C DP, BMPX #### [address] [address] Tank Inspector: Michael hCen MD Platelet mean volume (Bld) [Entitic vol] 9.1 fL Normal 8.1-13.[address] [facility] Comment on above: Performed By: #### C DP, BMPX #### [address] [address] Tank Inspector: Michael Chen MD Platelets (Bld) [#/Vol] 227 10*3/uL Normal 138-[address] [facility] Comment on above: Performed By: #### C DP, BMPX #### [address] [address] Tank Inspector: Michael Chen MD RBC (Bld) [#/Vol] 2.73 10*6/uL Low 3.95-5.[address] [facility] Comment on above: Performed By: #### C DP, BMPX #### [address] [address] Tank Inspector: Michael Chen MD WBC (Bld) [#/Vol] 5.9 10*3/uL Normal 3.5-11.[address] [facility] Comment on above: Performed By: #### C DP, BMPX #### [address] [address] Tank Inspector: Michael Chen MD FLUORO FOR SURGICAL PROCEDUR ESon 01-25-2024 FLUORO FOR SURGICAL PROCEDURES Radiology exam is complete. No Radiologist dictation. Please follow up with ordering provider. Final result Normal [facility] Hgb/Hcton 01-25-2024 Hematocrit (Bld) [Volume fraction] 30.8 % Low 36.3-47.[address] [facility] Comment on above: Performed By: #### B MPX, CDP #### [facility] [address] [place] [address] Tank Inspector: Michael Chen MD Hemoglobin (Bld) [Mass/Vol] 9.5 g/dL Low 11.9-15.[address] [facility] Comment on above: Performed By: #### B MPX, CDP #### [facility] [address] [place] [address] Tank Inspector: Michael Chen MD Basic Metab w/rfx on 01-23 Anion gap [Moles/Vol] 10 mmol/L Normal 9-16 [facility] Comment on above: Performed By: #### B MPX, CDP #### [address] [address] Tank Inspector: Michael Chen MD Calcium [Mass/Vol] 8.2 mg/dL Low 8.6-10.[address] [facility] Comment on above: Performed By: #### B MPX, CDP #### [address] [address] Tank Inspector: Michael Chen MD Chloride [Moles/Vol] 104 mmol/L Normal 98-107 [facility] Comment on above: Performed By: #### B MPX, CDP #### [facility] [address] [place] [address] Tank Inspector: Michael Chen MD CO2 [Moles/Vol] 22 mmol/L Normal 20-[address] [facility] Comment on above: Performed By: #### B MPX, CDP #### [facility] [address] [place] [address] Tank Inspector: Michael Chen MD Creatinine [Mass/Vol] 1.7 mg/dL High 0.50-0.90 [facility] Comment on above: Performed By: #### B MPX, CDP #### [facility] [address] [place] [address] Tank Inspector: Michael Chen MD GFR/1.73 sq M.predicted among non-blacks MDRD (S/P/Bld) [Vol rate/Area] 34 mL/min/{1.73_m2} Low >[address] [facility] Comment on above: Result Comment: [...] Performed By: #### B MPX, CDP #### [facility] [address] [place] [address] Tank Inspector: Michael Chen MD Glucose [Mass/Vol] 100 mg/dL High 74-[address] [facility] Comment on above: Performed By: #### B MPX, CDP #### [facility] [address] [place] [address] Tank Inspector: Michael Chen MD Potassium [Moles/Vol] 4.9 mmol/L Normal 3.7-5.3 [facility] Comment on above: Result Comment: SPEC IMEN SLIGHTLY HEMOLYZED, RESULTS MAY BE ADVERSELY AFFECTED. Performed By: #### B MPX, CDP #### [facility] [address] [place] [address] Tank Inspector: Michael Chen MD Sodium [Moles/Vol] 136 mmol/L Normal 136-[address] [facility] Comment on above: Performed By: #### B MPX, CDP #### [facility] [address] [place] [address] Tank Inspector: Michael Chen MD Urea nitrogen [Mass/Vol] 51 mg/dL High 8-[address] [facility] Comment on above: Performed By: #### B MPX, CDP #### [facility] [address] [place] [address] Tank Inspector: Michael Chen MD CBC with Diffon 01-24-2024 Abs. Basophil 0.03 k/uL Normal 0.00-0.[address] [facility] Comment on above: Performed By: #### B MPX, CDP #### [facility] [address] [place] [address] Tank Inspector: Michael Chen MD Abs.Imm.Granulocyte 0.11 k/uL Normal 0.00-0.[address] [facility] Comment on above: Performed By: #### B MPX, CDP #### [address] [address] Tank Inspector: Michael Chen MD Abs.Neutrophil (Seg) 3.73 k/uL Normal 1.50-8.10 [facility] Comment on above: Performed By: #### B MPX, CDP #### [facility] [address] [place] [address] Tank Inspector: Michael Chen MD Basophils/100 WBC (Bld) 1 % Normal 0-[address] [facility] Comment on above: Performed By: #### B MPX, CDP #### [facility] [address] [place] [address] Tank Inspector: Michael Chen MD Eosinophils (Bld) [#/Vol] 0.24 10*3/uL Normal 0.00-0.[address] [facility] Comment on above: Performed By: #### B MPX, CDP #### [facility] [address] [place] [address] Tank Inspector: Michael Chen MD Eosinophils/100 WBC (Bld) 4 % Normal 1-[address] [facility] Comment on above: Performed By: #### B MPX, CDP #### [facility] [address] [place] [address] Tank Inspector: Michael Chen MD Erythrocyte distribution width (RBC) [Ratio] 13.8 % Normal 11.8-14.[address] [facility] Comment on above: Performed By: #### B MPX, CDP #### [facility] [address] [place] [address] Tank Inspector: Michael Chen MD Hematocrit (Bld) [Volume fraction] 29.4 % Low 36.3-47.[address] [facility] Comment on above: Performed By: #### B MPX, CDP #### [facility] [address] [place] [address] Tank Inspector: Michael Chen MD Hemoglobin (Bld) [Mass/Vol] 9.2 g/dL Low 11.9-15.[address] [facility] Comment on above: Performed By: #### B MPX, CDP #### [facility] [address] [place] [address] Tank Inspector: Michael Chen MD Immature granulocytes/100 WBC (Bld) 2 % High [address] [facility] Comment on above: Performed By: #### B MPX, CDP #### [facility] [address] [place] [address] Tank Inspector: Michael Chen MD Lymphocytes (Bld) [#/Vol] 1.63 10*3/uL Normal 1.10-3.[address] [facility] Comment on above: Performed By: #### B MPX, CDP #### [facility] [address] [place] [address] Tank Inspector: Michael Chen MD Lymphocytes/100 WBC (Bld) 25 % Normal 24-[address] [facility] Comment on above: Performed By: #### B MPX, CDP #### [address] [address] Tank Inspector: Michael Chen MD MCH (RBC) [Entitic mass] 30.8 pg Normal 25.2-33.[address] [facility] Comment on above: Performed By: #### B MPX, CDP #### [address] [address] Tank Inspector: Michael Chen MD MCHC (RBC) [Mass/Vol] 31.3 g/dL Normal 28.4-34.8 [facility] Comment on above: Performed By: #### B MPX, CDP #### [address] [address] Tank Inspector: Michael Chen MD MCV (RBC) [Entitic vol] 98.3 fL Normal 82.6-102.[address] [facility] Comment on above: Performed By: #### B MPX, CDP #### [address] [address] Tank Inspector: Michael Chen MD Monocytes (Bld) [#/Vol] 0.74 10*3/uL Normal 0.10-1.[address] [facility] Comment on above: Performed By: #### B MPX, CDP #### [address] [address] Tank Inspector: Michael Chen MD Monocytes/100 WBC (Bld) 11 % Normal 3-[address] [facility] Comment on above: Performed By: #### B MPX, CDP #### [address] [address] Tank Inspector: Michael Chen MD Neutrophil (Seg) 57 % Normal 36-65 [facility] Comment on above: Performed By: #### B MPX, CDP #### [address] [address] Tank Inspector: Michael Chen MD NRBC Automated 0.0 per 100 WBC Normal 0.[address] [facility] Comment on above: Performed By: #### B MPX, CDP #### [address] [address] Tank Inspector: Michael Chen MD Platelet mean volume (Bld) [Entitic vol] 9.9 fL Normal 8.1-13.[address] [facility] Comment on above: Performed By: #### B MPX, CDP #### [address] [address] Tank Inspector: Michael Chen MD Platelets (Bld) [#/Vol] 234 10*3/uL Normal 138-[address] [facility] Comment on above: Performed By: #### B MPX, CDP #### [address] [address] Tank Inspector: Michael Chen MD RBC (Bld) [#/Vol] 2.99 10*6/uL Low 3.95-5.[address] [facility] Comment on above: Performed By: #### B MPX, CDP #### [address] [address] Tank Inspector: Michael Chen MD WBC (Bld) [#/Vol] 6.5 10*3/uL Normal 3.5-11.[address] [facility] Comment on above: Performed By: #### B MPX, CDP #### [address] [address] Tank Inspector: Michael Chen MD REINALDO Screen w/reflexon 2023 REINALDO Screen Negative Normal NEG [facility] Comment on above: Performed By: #### B MPX, CDP #### [address] [phone] Tank Inspector: Michael Chen MD Anti-dsDNA <0.5 Normal <10.[address] [facility] Comment on above: Result Comment: Reference Range: <10.0 Negative 10.0-15.0 Equivocal >15.0 Positive Performed By: #### B MPX, CDP #### [address] [address] Tank Inspector: Michael Chen MD [place] Screen 0.1 U/mL Normal <0.[address] [facility] Comment on above: Result Comment: Reference Range: <0.7 Negative 0.7-1.0 Equivocal >1.0 Positive [place] Screen includes U1RNP,RNP70,Sm,Ro(SS-A),La(SS-B),CENP,Scl-70,Elli-1 Performed By: #### B MPX, CDP #### [address] [address] Tank Inspector: Michael Chen MD REINALDO Screen Negative Normal NEG [facility] Comment on above: Performed By: #### C DP, CMPX #### [address] [address] Tank Inspector: Michael Chen MD Anti-dsDNA 0.7 IU/mL Normal <10.[address] [facility] Comment on above: Result Comment: Reference Range: <10.0 Negative 10.0-15.0 Equivocal >15.0 Positive Performed By: #### C DP, CMPX #### [address] [address] Tank Inspector: Michael Chen MD [place] Screen 0.2 U/mL Normal <0.[address] [facility] Comment on above: Result Comment: Reference Range: <0.7 Negative 0.7-1.0 Equivocal >1.0 Positive [place] Screen includes U1RNP,RNP70,Sm,Ro(SS-A),La(SS-B),CENP,Scl-70,Elli-1 Performed By: #### C DP, CMPX #### [address] [address] Tank Inspector: Michael Chen MD Anti CCPon 01-23-2024 Anti CCP 0.6 U/mL Normal 0.0-7.[address] [facility] Comment on above: Result Comment: Reference Range: <7.0 Negative 7.0-10.0 Equivocal >10.0 Positive Performed By: #### B MPX, CDP #### [address] [address] Tank Inspector: Michael Chen MD Basic Metab w/rfx MGon 01-22 Anion gap [Moles/Vol] 8 mmol/L Low 9-16 [facility] Comment on above: Performed By: #### B MPX, CDP #### [facility] [address] [place] [address] 12581 Tank Inspector: Michael Chen MD Calcium [Mass/Vol] 8.2 mg/dL Low 8.6-10.[address] [facility] Comment on above: Performed By: #### B MPX, CDP #### [facility] [address] [place] [address] 98455 Tank Inspector: Michael Chen MD Chloride [Moles/Vol] 106 mmol/L Normal 98-107 [facility] Comment on above: Performed By: #### B MPX, CDP #### [facility] [address] [place] [address] 52837 Tank Inspector: Michael Chen MD CO2 [Moles/Vol] 21 mmol/L Normal 20-[address] [facility] Comment on above: Performed By: #### B MPX, CDP #### [facility] [address] [place] [address] 08686 Tank Inspector: Michael Chen MD Creatinine [Mass/Vol] 1.7 mg/dL High 0.50-0.90 [facility] Comment on above: Performed By: #### B MPX, CDP #### [facility] [address] [place] [address] 75681 Tank Inspector: Michael Chen MD GFR/1.73 sq M.predicted among non-blacks MDRD (S/P/Bld) [Vol rate/Area] 33 mL/min/{1.73_m2} Low >[address] [facility] Comment on above: Result Comment: [...] Performed By: #### B MPX, CDP #### [facility] [address] [place] [address] 70480 Tank Inspector: Michael Chen MD Glucose [Mass/Vol] 88 mg/dL Normal 74-[address] [facility] Comment on above: Performed By: #### B MPX, CDP #### [facility] [address] [place] [address] 99134 Tank Inspector: Michael Chen MD Potassium [Moles/Vol] 4.8 mmol/L Normal 3.7-5.3 [facility] Comment on above: Performed By: #### B MPX, CDP #### [facility] [address] [place] [address] 96866 Tank Inspector: Michael Chen MD Sodium [Moles/Vol] 135 mmol/L Low 136-[address] [facility] Comment on above: Performed By: #### B MPX, CDP #### [facility] [address] [place] [address] 19374 Tank Inspector: Michael Chen MD Urea nitrogen [Mass/Vol] 56 mg/dL High 8-[address] [facility] Comment on above: Performed By: #### B MPX, CDP #### [facility] [address] [place] [address] 80842 Tank Inspector: Michael Chen MD CBC with Diffon 01-23-2024 Abs. Basophil <0.03 Normal 0.00-0.[address] [facility] Comment on above: Performed By: #### B MPX, CDP #### [facility] [address] [place] [address] 06654 Tank Inspector: Michael Chen MD Abs.Imm.Granulocyte 0.03 k/uL Normal 0.00-0.[address] [facility] Comment on above: Performed By: #### B MPX, CDP #### [address] [address] Tank Inspector: Michael Chen MD Abs.Neutrophil (Seg) 5.50 k/uL Normal 1.50-8.10 [facility] Comment on above: Performed By: #### B MPX, CDP #### [address] [address] Tank Inspector: Michael Chen MD Basophils/100 WBC (Bld) 0 % Normal 0-[address] [facility] Comment on above: Performed By: #### B MPX, CDP #### [address] [address] Tank Inspector: Michael Chen MD Eosinophils (Bld) [#/Vol] 0.15 10*3/uL Normal 0.00-0.[address] [facility] Comment on above: Performed By: #### B MPX, CDP #### [facility] [address] [place] [address] 57914 Tank Inspector: Michael Chen MD Eosinophils/100 WBC (Bld) 2 % Normal 1-[address] [facility] Comment on above: Performed By: #### B MPX, CDP #### [facility] [address] [place] [address] 28331 Tank Inspector: Michael Chen MD Erythrocyte distribution width (RBC) [Ratio] 13.7 % Normal 11.8-14.[address] [facility] Comment on above: Performed By: #### B MPX, CDP #### [facility] [address] [place] [address] 79690 Tank Inspector: Michael Chen MD Hematocrit (Bld) [Volume fraction] 28.9 % Low 36.3-47.[address] [facility] Comment on above: Performed By: #### B MPX, CDP #### [facility] [address] [place] [address] 33173 Tank Inspector: Michael Chen MD Hemoglobin (Bld) [Mass/Vol] 8.6 g/dL Low 11.9-15.[address] [facility] Comment on above: Performed By: #### B MPX, CDP #### [address] [address] Tank Inspector: Michael Chen MD Immature granulocytes/100 WBC (Bld) 0 % Normal [address] [facility] Comment on above: Performed By: #### B MPX, CDP #### [address] [address] Tank Inspector: Michael Chen MD Lymphocytes (Bld) [#/Vol] 1.07 10*3/uL Low 1.10-3.[address] [facility] Comment on above: Performed By: #### B MPX, CDP #### [facility] [address] [place] [address] 20520 Tank Inspector: Michael Chen MD Lymphocytes/100 WBC (Bld) 14 % Low 24-[address] [facility] Comment on above: Performed By: #### B MPX, CDP #### [facility] [address] [place] [address] 12213 Tank Inspector: Michael Chen MD MCH (RBC) [Entitic mass] 30.2 pg Normal 25.2-33.[address] [facility] Comment on above: Performed By: #### B MPX, CDP #### [facility] [address] [place] [address] 33119 Tank Inspector: Michael Chen MD MCHC (RBC) [Mass/Vol] 29.8 g/dL Normal 28.4-34.8 [facility] Comment on above: Performed By: #### B MPX, CDP #### [address] [address] Tank Inspector: Michael Chen MD MCV (RBC) [Entitic vol] 101.4 fL Normal 82.6-102.[address] [facility] Comment on above: Performed By: #### B MPX, CDP #### [address] [address] Tank Inspector: Michael Chen MD Monocytes (Bld) [#/Vol] 0.72 10*3/uL Normal 0.10-1.[address] [facility] Comment on above: Performed By: #### B MPX, CDP #### [address] [address] Tank Inspector: Michael Chen MD Monocytes/100 WBC (Bld) 10 % Normal 3-[address] [facility] Comment on above: Performed By: #### B MPX, CDP #### [address] [address] Tank Inspector: Michael Chen MD Neutrophil (Seg) 74 % High 36-65 [facility] Comment on above: Performed By: #### B MPX, CDP #### [facility] [address] [place] [address] 07184 Tank Inspector: Michael Chen MD NRBC Automated 0.0 per 100 WBC Normal 0.[address] [facility] Comment on above: Performed By: #### B MPX, CDP #### [facility] [place] [address] Tank Inspector: Michael Chen MD Platelet mean volume (Bld) [Entitic vol] 9.9 fL Normal 8.1-13.[address] [facility] Comment on above: Performed By: #### B MPX, CDP #### [facility] [address] [place] [address] 19708 Tank Inspector: Michael Chen MD Platelets (Bld) [#/Vol] 292 10*3/uL Normal 138-[address] [facility] Comment on above: Performed By: #### B MPX, CDP #### [address] [address] Tank Inspector: Michael Chen MD RBC (Bld) [#/Vol] 2.85 10*6/uL Low 3.95-5.[address] [facility] Comment on above: Performed By: #### B MPX, CDP #### [address] [address] Tank Inspector: Michael Chen MD WBC (Bld) [#/Vol] 7.5 10*3/uL Normal 3.5-11.[address] [facility] Comment on above: Performed By: #### B MPX, CDP #### [facility] [place] [address] Tank Inspector: Michael Chen MD APTTon 01-22-2024 aPTT Coag (Bld) [Time] 29.1 s Normal 23.0-36.5 [facility] Comment on above: Result Comment: IV Heparin Therapy Range: 66.0-92.0 sec Performed By: #### C DP, CMPX #### [facility] [address] [place] [address] 83171 Tank Inspector: Michael Chen MD Basic Metab w/rfx MGon 01-21 Anion gap [Moles/Vol] 10 mmol/L Normal 9-16 [facility] Comment on above: Performed By: #### C DP, CMPX #### [facility] [address] [place] [address] 63597 Tank Inspector: Michael Chen MD Calcium [Mass/Vol] 8.3 mg/dL Low 8.6-10.[address] [facility] Comment on above: Performed By: #### C DP, CMPX #### [facility] [address] [place] [address] 14824 Tank Inspector: Michael Chen MD Chloride [Moles/Vol] 107 mmol/L Normal 98-107 [facility] Comment on above: Performed By: #### C DP, CMPX #### [facility] [address] [place] [address] 90683 Tank Inspector: Michael Chen MD CO2 [Moles/Vol] 21 mmol/L Normal 20-[address] [facility] Comment on above: Performed By: #### C DP, CMPX #### [facility] [address] [place] [address] 12741 Tank Inspector: Michael Chen MD Creatinine [Mass/Vol] 1.8 mg/dL High 0.50-0.90 [facility] Comment on above: Performed By: #### C DP, CMPX #### [facility] [address] [place] [address] 22795 Tank Inspector: Michael Chen MD GFR/1.73 sq M.predicted among non-blacks MDRD (S/P/Bld) [Vol rate/Area] 32 mL/min/{1.73_m2} Low >[address] [facility] Comment on above: Result Comment: [...] Performed By: #### C DP, CMPX #### [facility] [address] [place] [address] 49513 Tank Inspector: Michael Chen MD Glucose [Mass/Vol] 86 mg/dL Normal 74-[address] [facility] Comment on above: Performed By: #### C DP, CMPX #### [facility] [address] [place] [address] 88629 Tank Inspector: Michael Chen MD Potassium [Moles/Vol] 4.1 mmol/L Normal 3.7-5.3 [facility] Comment on above: Performed By: #### C DP, CMPX #### [facility] [address] [place] [address] 77221 Tank Inspector: Michael Chen MD Sodium [Moles/Vol] 138 mmol/L Normal 136-[address] [facility] Comment on above: Performed By: #### C DP, CMPX #### [facility] [address] [place] [address] 17893 Tank Inspector: Mcihael Chen MD Urea nitrogen [Mass/Vol] 66 mg/dL High 8-[address] [facility] Comment on above: Performed By: #### C DP, CMPX #### [facility] [address] [place] [address] 74111 Tank Inspector: Michael Chen MD C-Reactive Proteinon 01-21- 024 CRP [Mass/Vol] 31.7 mg/L High 0.0-5.[address] [facility] Comment on above: Performed By: #### B MPX, CDP #### [facility] [address] [place] [address] 23542 Tank Inspector: Michael Chen MD C3on 01-22-2024 C3 111 mg/dL Normal 90-[address] [facility] Comment on above: Performed By: #### B MPX, CDP #### [facility] [address] [place] [address] 17744 Tank Inspector: Michael Chen MD C4on 01-22-2024 C4 21 mg/dL Normal 10-[address] [facility] Comment on above: Performed By: #### B MPX, CDP #### [facility] [address] [place] [address] 78968 Tank Inspector: Michael Chen MD CBC with Diffon 01-22-2024 Abs. Basophil 0.00 k/uL Normal 0.00-0.[address] [facility] Comment on above: Performed By: #### C DP, CMPX #### [address] [address] Tank Inspector: Michael Chen MD Abs.Imm.Granulocyte 0.00 k/uL Normal 0.00-0.[address] [facility] Comment on above: Performed By: #### C DP, CMPX #### [facility] [address] [place] [address] 49180 Tank Inspector: Michael Chen MD Abs.Neutrophil (Seg) 6.12 k/uL Normal 1.50-8.10 [facility] Comment on above: Performed By: #### C DP, CMPX #### [facility] [address] [place] [address] 86891 Tank Inspector: Michael Chen MD Basophils/100 WBC (Bld) 0 % Normal 0-[address] [facility] Comment on above: Performed By: #### C DP, CMPX #### [facility] [address] [place] [address] 26752 Tank Inspector: Michael Chen MD Eosinophils (Bld) [#/Vol] 0.07 10*3/uL Normal 0.00-0.[address] [facility] Comment on above: Performed By: #### C DP, CMPX #### [address] [address] Tank Inspector: Michael Chen MD Eosinophils/100 WBC (Bld) 1 % Normal 1-[address] [facility] Comment on above: Performed By: #### C DP, CMPX #### [address] [address] Tank Inspector: Michael Chen MD Immature granulocytes/100 WBC (Bld) 0 % Normal [address] [facility] Comment on above: Performed By: #### C DP, CMPX #### [place] [address] Tank Inspector: Michael Chen MD Lymphocytes (Bld) [#/Vol] 0.58 10*3/uL Low 1.10-3.[address] [facility] Comment on above: Performed By: #### C DP, CMPX #### [address] [address] Tank Inspector: Michael Chen MD Lymphocytes/100 WBC (Bld) 8 % Low 24-[address] [facility] Comment on above: Performed By: #### C DP, CMPX #### [address] [address] Tank Inspector: Michael Chen MD Monocytes (Bld) [#/Vol] 0.43 10*3/uL Normal 0.10-1.[address] [facility] Comment on above: Performed By: #### C DP, CMPX #### [address] [address] Tank Inspector: Michael Chen MD Monocytes/100 WBC (Bld) 6 % Normal 3-[address] [facility] Comment on above: Performed By: #### C DP, CMPX #### [address] [address] Tank Inspector: Michael Chen MD Morphology Pedro (Bld) [Interp] Normal Normal [facility] Comment on above: Performed By: #### C DP, CMPX #### [address] [address] Tank Inspector: Michael Chen MD Neutrophil (Seg) 85 % High 36-65 [facility] Comment on above: Performed By: #### C DP, CMPX #### [address] [address] Tank Inspector: Michael Chen MD Erythrocyte distribution width (RBC) [Ratio] 13.6 % Normal 11.8-14.[address] [facility] Comment on above: Performed By: #### C DP, CMPX #### [address] [address] Tank Inspector: Michael Chen MD Hematocrit (Bld) [Volume fraction] 30.3 % Low 36.3-47.[address] [facility] Comment on above: Performed By: #### C DP, CMPX #### [address] [address] Tank Inspector: Michael Chen MD Hemoglobin (Bld) [Mass/Vol] 9.3 g/dL Low 11.9-15.[address] [facility] Comment on above: Performed By: #### C DP, CMPX #### [address] [address] Tank Inspector: Michael Chen MD MCH (RBC) [Entitic mass] 30.8 pg Normal 25.2-33.[address] [facility] Comment on above: Performed By: #### C DP, CMPX #### [address] [address] Tank Inspector: Michael Chen MD MCHC (RBC) [Mass/Vol] 30.7 g/dL Normal 28.4-34.8 [facility] Comment on above: Performed By: #### C DP, CMPX #### [address] [address] Tank Inspector: Michael Chen MD MCV (RBC) [Entitic vol] 100.3 fL Normal 82.6-102.[address] [facility] Comment on above: Performed By: #### C DP, CMPX #### [address] [address] Tank Inspector: Michael Chen MD NRBC Automated 0.0 per 100 WBC Normal 0.[address] [facility] Comment on above: Performed By: #### C DP, CMPX #### [address] [address] Tank Inspector: Michael Chen MD Platelet mean volume (Bld) [Entitic vol] 9.6 fL Normal 8.1-13.[address] [facility] Comment on above: Performed By: #### C DP, CMPX #### [address] [address] Tank Inspector: Michael Chen MD Platelets (Bld) [#/Vol] 329 10*3/uL Normal 138-[address] [facility] Comment on above: Performed By: #### C DP, CMPX #### [address] [address] Tank Inspector: Michael Chen MD RBC (Bld) [#/Vol] 3.02 10*6/uL Low 3.95-5.[address] [facility] Comment on above: Performed By: #### C DP, CMPX #### [address] [address] Tank Inspector: Michael Chen MD WBC (Bld) [#/Vol] 7.2 10*3/uL Normal 3.5-11.[address] [facility] Comment on above: Performed By: #### C DP, CMPX #### [facility] [address] [place] [address] Tank Inspector: Michael Chen MD CT CERVICAL SPINE WO [...] MD 01/22/24 Final result Normal [facility] CT CHEST ABDOMEN PELVIS W [...] MD 01/22/24 Final result Normal [facility] CT HEAD WO CONTRASTon 2023 [...] MD 01/22/24 Final result Normal [facility] CT LUMBAR SPINE BONY RECONST [...] MD 01/22/24 Final result Normal [facility] CT THORACIC SPINE BONY RECON [...] MD 01/22/24 Final result Normal [facility] CTA HEAD NECK W CONTRASTon [...] MD 01/22/24 Final result Normal [facility] Creatine Kinaseon 01-22-2024 CK [Catalytic activity/Vol] 38 U/L Normal 26-[address] [facility] Comment on above: Performed By: #### B MPX, CDP #### [facility] [address] [place], [place] [id number] Tank Inspector: Michael Chen MD MRI BRAIN WO CONTRASTon [...] MD 01/22/24 Final result Normal [facility] MRI CERVICAL SPINE WO CONTRA [...] MD 01/22/24 Final result Normal [facility] PTon 01-22-2024 INR Coag (PPP) [Relative time] 1.1 {INR} Normal [facility] Comment on above: Result Comment: Therapeutic Range: Moderate Anticoagulant Intensity: INR = 2.0-3.0 High Anticoagulant Intensity: INR = 2.5-3.5 Performed By: #### C DP, CMPX #### [facility] [address] [place] [address] 08806 Tank Inspector: Michael Chen MD PT Coag (PPP) [Time] 14.2 s Normal 11.7-14.9 [facility] Comment on above: Performed By: #### C DP, CMPX #### [facility] [address] [place] [address] 56251 Tank Inspector: Michael Chen MD RA Screenon 01-22-2024 RA Screen <10 Normal 0-[address] [facility] Comment on above: Performed By: #### B MPX, CDP #### [facility] [address] [place] [address] 92245 Tank Inspector: Michael Chen MD Sedimentation Rateon 024 Sedimentation Rate 11 mm/Hr Normal 0-[address] [facility] Comment on above: Performed By: #### B MPX, CDP #### [facility] [address] [place] [address] 90686 Tank Inspector: Michael Chen MD Type + Screenon 01-22-2024 Type + Screen Sample Expiration 01/25/2024,2359 Arm Band Number [id number] ABO/Rh(D) A POSITIVE Antibody Screen NEGATIVE Normal [facility] Comment on above: Performed By: #### B MPX, CDP #### [facility] [address] [place] [address] 27951 Tank Inspector: Michael Chen MD Uric Acidon 01-22-2024 Urate [Mass/Vol] 9.6 mg/dL High 2.4-5.7 [facility] Comment on above: Performed By: #### B MPX, CDP #### [facility] [address] [place] [address] 91861 Tank Inspector: Michael Chen MD Vitamin D 25 OHon 01-22-2024 Vitamin D 25 OH 30.3 ng/mL Normal 30.0-100.[address] 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 Office Visiton 12-21-2023 Follow-up visit [id number] Loren Moser 1960 F Date Provider Department Center 12/21/2023 BENJIE LERMA YVONNE [facility] Family History Family history unknown: Yes Level of Service:51906 NC OFFICE/OUTPATIENT ESTABLISHED MOD MDM 30 MIN Normal [facility] Orders Onlyon 12-21-2023 Orders Only [id number] Loren Moesr 1960 F Date Provider Department Center 12/21/2023 MIKAYLA BURGER YVONNE [facility] Family History Family history unknown: Yes Normal [facility] Basic Metab w/rfx MGon 09-30 Anion gap [Moles/Vol] 8 mmol/L Low 9-16 [facility] Comment on above: Performed By: #### C DP, BMPX #### [facility] [address] [place] [address] Tank Inspector: Michael Chen MD Calcium [Mass/Vol] 8.1 mg/dL Low 8.6-10.[address] [facility] Comment on above: Performed By: #### C DP, BMPX #### [address] [address] Tank Inspector: Michael Chen MD Chloride [Moles/Vol] 101 mmol/L Normal 98-107 [facility] Comment on above: Performed By: #### C DP, BMPX #### [address] [address] Tank Inspector: Michael Chen MD CO2 [Moles/Vol] 23 mmol/L Normal 20-[address] [facility] Comment on above: Performed By: #### C DP, BMPX #### [address] [address] Tank Inspector: Michael Chen MD Creatinine [Mass/Vol] 1.5 mg/dL High 0.50-0.90 [facility] Comment on above: Performed By: #### C DP, BMPX #### [address] [address] Tank Inspector: Micahel Chen MD GFR/1.73 sq M.predicted among non-blacks MDRD (S/P/Bld) [Vol rate/Area] 39 mL/min/{1.73_m2} Low >[address] [facility] Comment on above: Result Comment: [...] Performed By: #### C DP, BMPX #### [address] [address] Tank Inspector: Michael Chen MD Glucose [Mass/Vol] 100 mg/dL High 74-[address] [facility] Comment on above: Performed By: #### C DP, BMPX #### [address] [address] Tank Inspector: Michael Chen MD Potassium [Moles/Vol] 4.4 mmol/L Normal 3.7-5.3 [facility] Comment on above: Performed By: #### C DP, BMPX #### [address] [address] Tank Inspector: Michael Chen MD Sodium [Moles/Vol] 132 mmol/L Low 136-[address] [facility] Comment on above: Performed By: #### C DP, BMPX #### [address] [address] Tank Inspector: Michael Chen MD Urea nitrogen [Mass/Vol] 56 mg/dL High 8-[address] [facility] Comment on above: Performed By: #### C DP, BMPX #### [address] [address] Tank Inspector: Michael Chen MD CBC with Diffon 10-01-2023 Abs. Basophil 0.03 k/uL Normal 0.00-0.[address] [facility] Comment on above: Performed By: #### C DP, BMPX #### [address] [address] Tank Inspector: Michael Chen MD Abs.Imm.Granulocyte 0.05 k/uL Normal 0.00-0.[address] [facility] Comment on above: Performed By: #### C DP, BMPX #### [facility] [address] [place] [address]355 Tank Inspector: Michael Chen MD Abs.Neutrophil (Seg) 6.55 k/uL Normal 1.50-8.10 [facility] Comment on above: Performed By: #### C DP, BMPX #### [address] [address] Tank Inspector: Michael Chen MD Basophils/100 WBC (Bld) 0 % Normal 0-[address] [facility] Comment on above: Performed By: #### C DP, BMPX #### [address] [address] Tank Inspector: Michael Chen MD Eosinophils (Bld) [#/Vol] 0.10 10*3/uL Normal 0.00-0.[address] [facility] Comment on above: Performed By: #### C DP, BMPX #### [address] [address] Tank Inspector: Michael Chen MD Eosinophils/100 WBC (Bld) 1 % Normal 1-[address] [facility] Comment on above: Performed By: #### C DP, BMPX #### [address] [address] Tank Inspector: Michael Chen MD Erythrocyte distribution width (RBC) [Ratio] 13.6 % Normal 11.8-14.[address] [facility] Comment on above: Performed By: #### C DP, BMPX #### [address] [address] Tank Inspector: Michael Chen MD Hematocrit (Bld) [Volume fraction] 27.9 % Low 36.3-47.[address] [facility] Comment on above: Performed By: #### C DP, BMPX #### [address] [address] Tank Inspector: Michael Chen MD Hemoglobin (Bld) [Mass/Vol] 8.4 g/dL Low 11.9-15.[address] [facility] Comment on above: Performed By: #### C DP, BMPX #### [address] [address] Tank Inspector: Michael Chen MD Immature granulocytes/100 WBC (Bld) 1 % High [address] [facility] Comment on above: Performed By: #### C DP, BMPX #### [address] [address] Tank Inspector: Michael Chen MD Lymphocytes (Bld) [#/Vol] 0.94 10*3/uL Low 1.10-3.[address] [facility] Comment on above: Performed By: #### C DP, BMPX #### [address] [address] Tank Inspector: Michael Chen MD Lymphocytes/100 WBC (Bld) 11 % Low 24-[address] [facility] Comment on above: Performed By: #### C DP, BMPX #### [address] [address] Tank Inspector: Michael Chen MD MCH (RBC) [Entitic mass] 30.5 pg Normal 25.2-33.[address] [facility] Comment on above: Performed By: #### C DP, BMPX #### [address] [address] Tank Inspector: Michael Chen MD MCHC (RBC) [Mass/Vol] 30.1 g/dL Normal 28.4-34.8 [facility] Comment on above: Performed By: #### C DP, BMPX #### [address] [address] Tank Inspector: Michael Chen MD MCV (RBC) [Entitic vol] 101.5 fL Normal 82.6-102.[address] [facility] Comment on above: Performed By: #### C DP, BMPX #### [place] [address] Tank Inspector: Michael Chen MD Monocytes (Bld) [#/Vol] 0.54 10*3/uL Normal 0.10-1.[address] [facility] Comment on above: Performed By: #### C DP, BMPX #### [address] [address] Tank Inspector: Michael Chen MD Monocytes/100 WBC (Bld) 7 % Normal 3-[address] [facility] Comment on above: Performed By: #### C DP, BMPX #### [address] [address] Tank Inspector: Michael Chen MD Neutrophil (Seg) 80 % High 36-65 [facility] Comment on above: Performed By: #### C DP, BMPX #### [address] [address] Tank Inspector: Michael Chen MD NRBC Automated 0.0 per 100 WBC Normal 0.[address] [facility] Comment on above: Performed By: #### C DP, BMPX #### [address] [address] Tank Inspector: Michael Chen MD Platelet mean volume (Bld) [Entitic vol] 8.9 fL Normal 8.1-13.[address] [facility] Comment on above: Performed By: #### C DP, BMPX #### [address] [address] Tank Inspector: Michael Chen MD Platelets (Bld) [#/Vol] 281 10*3/uL Normal 138-[address] [facility] Comment on above: Performed By: #### C DP, BMPX #### [facility] [address] [place] [address] Tank Inspector: Michael Chen MD RBC (Bld) [#/Vol] 2.75 10*6/uL Low 3.95-5.[address] [facility] Comment on above: Performed By: #### C DP, BMPX #### [address] [address] Tank Inspector: Michael Chen MD WBC (Bld) [#/Vol] 8.2 10*3/uL Normal 3.5-11.[address] [facility] Comment on above: Performed By: #### C DP, BMPX #### [address] [address] Tank Inspector: Michael Chen MD Basic Metab w/rfx MGon 09-29 Anion gap [Moles/Vol] 12 mmol/L Normal 9-16 [facility] Comment on above: Performed By: #### C DP, BMPX #### [address] [address] Tank Inspector: Michael Chen MD Calcium [Mass/Vol] 8.2 mg/dL Low 8.6-10.[address] [facility] Comment on above: Performed By: #### C DP, BMPX #### [address] [address] Tank Inspector: Michael Chen MD Chloride [Moles/Vol] 103 mmol/L Normal 98-107 [facility] Comment on above: Performed By: #### C DP, BMPX #### [facility] [address] [place] [address] Tank Inspector: Michael Chen MD CO2 [Moles/Vol] 23 mmol/L Normal 20-[address] [facility] Comment on above: Performed By: #### C DP, BMPX #### [facility] [address] [place] [address] Tank Inspector: Michael Chen MD Creatinine [Mass/Vol] 1.6 mg/dL High 0.50-0.90 [facility] Comment on above: Performed By: #### C DP, BMPX #### [facility] [address] [place] [address] Tank Inspector: Michael Chen MD GFR/1.73 sq M.predicted among non-blacks MDRD (S/P/Bld) [Vol rate/Area] 35 mL/min/{1.73_m2} Low >[address] [facility] Comment on above: Result Comment: [...] Performed By: #### C DP, BMPX #### [employer] [address] [place] [address] Tank Inspector: Michael Chen MD Glucose [Mass/Vol] 89 mg/dL Normal 74-[address] [facility] Comment on above: Performed By: #### C DP, BMPX #### [facility] [address] [place] [address] Tank Inspector: Michael Chen MD Potassium [Moles/Vol] 4.6 mmol/L Normal 3.7-5.3 [facility] Comment on above: Result Comment: SPEC IMEN SLIGHTLY HEMOLYZED, RESULTS MAY BE ADVERSELY AFFECTED. Performed By: #### C DP, BMPX #### [employer] [address] [place] [address] Tank Inspector: Michael Chen MD Sodium [Moles/Vol] 138 mmol/L Normal 136-[address] [facility] Comment on above: Performed By: #### C DP, BMPX #### [employer] [address] [place] [address] Tank Inspector: Michael Chen MD Urea nitrogen [Mass/Vol] 57 mg/dL High 8-[address] [facility] Comment on above: Performed By: #### C DP, BMPX #### [facility] [address] [place] [address] Tank Inspector: Michael Chen MD Brain Natri. Peptideon 09-29 Natriuretic peptide B (Bld) [Mass/Vol] 1428 pg/mL High 0-[address] [facility] Comment on above: Result Comment: An a ge-independent cutoff point of 300 pg/ml has a 98% negative predictive value excluding acute heart failure. Performed By: #### C DP, BMPX #### [facility] [address] [place] [address] Tank Inspector: Michael Chen MD Liver Profileon 9 Albumin [Mass/Vol] 3.5 g/dL Normal 3.5-5.[address] [facility] Comment on above: Performed By: #### C DP, BMPX #### [facility] [address] [place] [address] Tank Inspector: Michael Chen MD Albumin/Glob Ratio 2.0 Normal 1.0-2.[address] [facility] Comment on above: Performed By: #### C DP, BMPX #### [facility] [address] [place] [address] Tank Inspector: Michael Chen MD Alkaline Phos 301 U/L High 35-[address] [facility] Comment on above: Performed By: #### C DP, BMPX #### [facility] [address] [place] [address] Tank Inspector: Michael Chen MD ALT [Catalytic activity/Vol] 17 U/L Normal 10-[address] [facility] Comment on above: Performed By: #### C DP, BMPX #### [facility] [address] [place] [address] Tank Inspector: Michael Chen MD AST [Catalytic activity/Vol] 33 U/L Normal 10-[address] [facility] Comment on above: Result Comment: SPEC IMEN SLIGHTLY HEMOLYZED, RESULTS MAY BE ADVERSELY AFFECTED. Performed By: #### C DP, BMPX #### [facility] [address] [place] [address] Tank Inspector: Michael Chen MD Bilirubin [Mass/Vol] 0.2 mg/dL Normal 0.00-1.20 [facility] Comment on above: Performed By: #### C DP, BMPX #### [facility] [address] [place] [address] Tank Inspector: Michael Chen MD Bilirubin, Indirect 0.1 mg/dL Normal 0.0-1.[address] [facility] Comment on above: Performed By: #### C DP, BMPX #### [address] [address] Tank Inspector: Michael Chen MD Bilirubin.indirect [Mass/Vol] mg/dL Normal 0.00-0.[address] [facility] Comment on above: Performed By: #### C DP, BMPX #### [facility] [address] [place] [address] Tank Inspector: Michael Chen MD Globulin (S) [Mass/Vol] 2.1 g/dL Normal [facility] Comment on above: Performed By: #### C DP, BMPX #### [facility] [address] [place] [address] Tank Inspector: Michael Chen MD Protein [Mass/Vol] 5.6 g/dL Low 6.6-8.[address] [facility] Comment on above: Performed By: #### C DP, BMPX #### [facility] [address] [place] [address] Tank Inspector: Michael Chen MD Specimen Rejectionon 024 Reason for rejection Unable to perform t esting: Specimen clotted. Normal [facility] Comment on above: Performed By: #### C DP, BMPX #### [facility] [address] [place] [phone] Tank Inspector: Michael Chen MD Source of sample .BLOOD Normal [facility] Comment on above: Performed By: #### C DP, BMPX #### [facility] [address] [place] [address] [phone] Tank Inspector: Michael Chen MD Test ordered CDP Normal [facility] Comment on above: Performed By: #### C DP, BMPX #### [address] [address] Tank Inspector: Michael Chen MD XR CERVICAL SPINE (2-3 [...] MD 09/30/23 Final result Normal [facility] XR CHEST PORTABLEon 09-30-19 XR [...] MD 09/30/23 Final result Normal [facility] Absolute reticulocyte countO rdered By: Los Grissom on 07-03-2023 Reticulocytes (Bld) [#/Vol] 0.039 10*6/uL 0.024-0.[address] [facility] Basic Metabolic Panelon Creatinine Clr Calc Pharmacy 25.88 [facility] Comment on above: Performed By: #### V [id number], MG, BMP, JOSE, FE and TIBC, RETIC #### [facility] [address] [place] [address] [place] GFR/1.73 sq M.predicted MDRD (S/P/Bld) [Vol rate/Area] 23.348 mL/min/{1.73_m2} Normal [facility] Comment on above: Performed By: #### V [id number], MG, BMP, JOSE, FE and TIBC, RETIC #### [facility] [address] [place] [address] [place] Calcium [Mass/volume] in Ser um or PlasmaOrdered By: Jim Randhawa on 07-03-2023 Calcium [Mass/Vol] 8.3 mg/dL Low 8.6-10.3 [facility] Comment on above: Performed By: #### V [id number], MG, BMP, JOSE, FE and TIBC, RETIC #### [facility] [address] [place] [address] [place] Carbon dioxide, total [Moles /volume] in Serum or PlasmaOrdered By: Jim Randhawa on 07-03-2023 CO2 [Moles/Vol] 20.4 mmol/L Low 21.0-31.0 [facility] Comment on above: Performed By: #### V [id number], MG, BMP, JOSE, FE and TIBC, RETIC #### [facility] [address] Chloride [Moles/volume] in S andrea or PlasmaOrdered By: Jim Randhawa on 07-03-2023 Chloride [Moles/Vol] 106 mmol/L Normal 98-107 [facility] Comment on above: Performed By: #### V [id number], MG, BMP, JOSE, FE and TIBC, RETIC #### [facility] [address] Creatinine [Mass/volume] in Serum or PlasmaOrdered By: Jim Randhawa on 07-03-2023 Creatinine [Mass/Vol] 2.32 mg/dL High 0.60-1.20 [facility] Comment on above: Performed By: #### V [id number], MG, BMP, JOSE, FE and TIBC, RETIC #### [facility] [address] ECH echo transthoracicon ECH echo transthoracic [facility] [place] [address] [place] [address] Echocardiogram Signed Patient: Mabel Moser MR#: [id number] : 1960 Acct:[id number] Age/Sex: 63 / F ADM Date: 06/29/23 Loc: Room: [address] [place] [address] Type: DIS IN Attending Dr: Jim Randhawa DO Ordering Provider: Jim Randhawa DO Date of Service: 07/02/2301/16/859 ECH/ECH echo transthoracic: swelling Copies to: MD Jim Meyer DO Weight: 189 lb Performed By: Judah Pinto [facility] BSA: 1.9 m2 BP: 112/75 [...] FS: 40.8 % Ao root area: 7.8 [id number] ap4: 8.4 cm TAPSE: 2.6 cm EDV(Teich): [...] mmHg Transcribed By: SCV Performed At: 07/03/23 1155 Signed By: Benjie Leach MD 07/03/23 1445 [facility] Ferritin [Mass/volume] in Se rum or PlasmaOrdered By: Los Grissom on 07-03-2023 Ferritin [Mass/Vol] 71.9 ng/mL Normal 11.0-306.8 [facility] Comment on above: Performed By: #### V [id number], MG, BMP, JOSE, FE and TIBC, RETIC #### [facility] [address] Folate [Mass/volume] in Seru m or PlasmaOrdered By: Los Grissom on 07-03-2023 Folate [Mass/Vol] 11.1 ng/mL >5.9 [facility] Comment on above: Folate reference ran ge: >5.9 ng/mlThe WHO technical consultation on folate and vitamin [id number] has determined that folate concentrations lessthan 4 ng/ml are considered deficient. Glucose [Mass/volume] in Ser um or PlasmaOrdered By: Jim Randhawa on 07-03-2023 Glucose [Mass/Vol] 99 mg/dL Normal 70-100 [facility] Comment on above: ADA recommended refe rence rangeRandom Glucose Reference Range is dependent on time and content of last meal. Glucose of more than 200 mg/dL in a nonstressed, ambulatory subject supports the diagnosis of Diabetes Mellitus. Result Comment: [place] om Glucose Reference Range is dependent on time and content of last meal. Glucose of more than 200 mg/dL in a nonstressed, ambulatory subject supports the diagnosis of Diabetes Mellitus. ADA recommended reference range Performed By: #### V [id number], MG, BMP, JOSE, FE and TIBC, RETIC #### [facility] [address] Iron [Mass/volume] in Serum or PlasmaOrdered By: Los Grissom on 07-03-2023 Iron [Mass/Vol] 59 ug/dL Normal 50-[address] [facility] Comment on above: Performed By: #### V [id number], MG, BMP, JOSE, FE and TIBC, RETIC #### [facility] [address] Iron and TIBC Profileon % Iron Saturation 22.8 % Normal 20-50 [facility] Comment on above: Performed By: #### V [id number], MG, BMP, JOSE, FE and TIBC, RETIC #### [facility] [address] Total Iron Binding Capacity 259 ug/dL Normal 255-[address] [facility] Comment on above: Performed By: #### V [id number], MG, BMP, JOSE, FE and TIBC, RETIC #### [facility] [address] Iron binding capacity [Mass/ volume] in Serum or PlasmaOrdered By: Los Grissom on 07-03-2023 Iron binding capacity [Mass/Vol] 259 ug/dL 255-[address] [facility] Iron saturation [Mass Fracti on] in Serum or PlasmaOrdered By: Los Grissom on 07-03-2023 Iron saturation [Mass fraction] 22.8 % 20-[address] [facility] Magnesium [Mass/volume] in S andrea or PlasmaOrdered By: Jim Randhawa on 07-03-2023 Magnesium [Mass/Vol] 2.0 mg/dL Normal 1.9-2.7 [facility] Comment on above: Performed By: #### V [id number], MG, BMP, JOSE, FE and TIBC, RETIC #### [facility] [address] [place] [address] No Panel InformationOrdered By: Jim Randhawa on 07-03-2023 Estimated GFR (CKD-EPI) 23.348 mL/Min [facility] Pharmacy Creatinine Clearance (Chem 25.[address] [facility] Potassium [Moles/volume] in Serum or PlasmaOrdered By: Jim Randhawa on 07-03-2023 Potassium [Moles/Vol] 3.9 mmol/L Normal 3.5-5.1 [facility] Comment on above: Performed By: #### V [id number], MG, BMP, JOSE, FE and TIBC, RETIC #### [facility] [address] [place] [address] Reticulocyte Counton 024 Reticulocyte Number 0.039 10*6/uL Normal 0.024-0 .[address] [facility] Comment on above: Result Comment: PERF ORMED BY: [facility] [address] [facility] [place] [address] PATHOLOGIST DOOR [employer] BUILDER TANNER GAVIN M.D. Performed By: #### V [id number], MG, BMP, JOSE, FE and TIBC, RETIC #### [facility] [address] [place] [address] [place] Reticulocyte Percent 1.5 % Normal 0.5-1.5 [facility] Comment on above: Performed By: #### V [id number], MG, BMP, JOSE, FE and TIBC, RETIC #### [facility] [address] [place] [address] [place] Reticulocytes/100 RBC Auto ( Bld)Ordered By: Los Grissom on 07-03-2023 Reticulocytes/100 RBC (Bld) 1.5 % 0.5-1.[address] [facility] Serum or plasma anion gap de terminationOrdered By: Jim Randhawa on 07-03-2023 Anion gap [Moles/Vol] 11.5 mmol/L Normal 6.0-15.0 [facility] Comment on above: Performed By: #### V [id number], MG, BMP, JOSE, FE and TIBC, RETIC #### [place] [address] [place] Sodium [Moles/volume] in Ser um or PlasmaOrdered By: Jim Randhawa on 07-03-2023 Sodium [Moles/Vol] 134 mmol/L Low 136-145 [facility] Comment on above: Performed By: #### V [id number], MG, BMP, JOSE, FE and TIBC, RETIC #### [facility] [address] [place] [address] [place] Transferrin [Mass/volume] in Serum or PlasmaOrdered By: Los Grissom on 07-03-2023 Transferrin [Mass/Vol] 185 mg/dL Low 203-362 [facility] Comment on above: Performed By: #### V [id number], MG, BMP, JOSE, FE and TIBC, RETIC #### [facility] [address] [place] [address] [place] Urea nitrogen [Mass/volume] in Serum or PlasmaOrdered By: Jim Randhawa on 07-03-2023 Urea nitrogen [Mass/Vol] 95 mg/dL High 7-[address] [facility] Comment on above: Performed By: #### V [id number], MG, BMP, JOSE, FE and TIBC, RETIC #### [address] Vit. B12/Folate Profileon Folate 11.1 ng/mL Normal >5.[address] [facility] Comment on above: Result Comment: Sandra te reference range: >5.9 ng/ml The WHO technical consultation on folate and vitamin b12 deficiencies has determined that folate concentrations less than 4 ng/ml are considered deficient. PERFORMED BY: [place] [address] PATHOLOGIST DOOR FR[employer] BUILDER TANNER GAVIN M.D. Performed By: #### V [id number], MG, BMP, JOSE, FE and TIBC, RETIC #### [address] Vitamin B12 ser/plasOrdered By: Los Grissom on 07-03-2023 Cobalamin (Vitamin B12) [Mass/Vol] 3564 pg/mL High 180-[address] [facility] Comment on above: Performed By: #### V [id number], MG, BMP, JOSE, FE and TIBC, RETIC #### [address] Basic Metabolic Panelon Anion gap [Moles/Vol] 11.0 mmol/L Normal 6.0-15.0 [facility] Comment on above: Performed By: #### V [id number], MG, BMP, JOSE, FE and TIBC, RETIC #### [address] Calcium [Mass/Vol] 8.4 mg/dL Low 8.6-10.3 [facility] Comment on above: Performed By: #### V [id number], MG, BMP, JOSE, FE and TIBC, RETIC #### [address] [place] [address] [place] Chloride [Moles/Vol] 104 mmol/L Normal 98-107 [facility] Comment on above: Performed By: #### V [id number], MG, BMP, JOSE, FE and TIBC, RETIC #### [facility] [address] CO2 [Moles/Vol] 20.2 mmol/L Low 21.0-31.0 [facility] Comment on above: Performed By: #### V [id number], MG, BMP, JOSE, FE and TIBC, RETIC #### [facility] [address] Creatinine [Mass/Vol] 2.31 mg/dL High 0.60-1.20 [facility] Comment on above: Performed By: #### V [id number], MG, BMP, JOSE, FE and TIBC, RETIC #### [place] [address] [place] Creatinine Clr Calc Pharmacy 26.22 [facility] Comment on above: Performed By: #### V [id number], MG, BMP, JOSE, FE and TIBC, RETIC #### [address] GFR/1.73 sq M.predicted MDRD (S/P/Bld) [Vol rate/Area] 23.469 mL/min/{1.73_m2} [facility] Comment on above: Performed By: #### V [id number], MG, BMP, JOSE, FE and TIBC, RETIC #### [facility] [address] Glucose [Mass/Vol] 89 mg/dL Normal 70-100 [facility] Comment on above: Result Comment: [facility] Glucose Reference Range is dependent on time and content of last meal. Glucose of more than 200 mg/dL in a nonstressed, ambulatory subject supports the diagnosis of Diabetes Mellitus. ADA recommended reference range Performed By: #### V [id number], MG, BMP, JOSE, FE and TIBC, RETIC #### [facility] [address] Potassium [Moles/Vol] 4.2 mmol/L Normal 3.5-5.1 [facility] Comment on above: Performed By: #### V [id number], MG, BMP, JOSE, FE and TIBC, RETIC #### [facility] [address] Sodium [Moles/Vol] 131 mmol/L Low 136-145 [facility] Comment on above: Performed By: #### V [id number], MG, BMP, JOSE, FE and TIBC, RETIC #### [facility] [address] Urea nitrogen [Mass/Vol] 100 mg/dL High 7-[address] [facility] Comment on above: Performed By: #### V [id number], MG, BMP, JOSE, FE and TIBC, RETIC #### [facility] [address] Erythrocyte distribution wid th Auto (RBC) [Ratio]Ordered By: Jim Randhawa on 07-02-2023 Erythrocyte distribution width (RBC) [Ratio] 14.2 % 11.9-15.[address] [facility] Hematocrit Auto (Bld) [Volum e fraction]Ordered By: Jim Randhawa on 07-02-2023 Hematocrit (Bld) [Volume fraction] 25.0 % 34.0-46.[address] [facility] Hemoglobin [Mass/volume] in BloodOrdered By: Jim Randhawa on 07-02-2023 Hemoglobin (Bld) [Mass/Vol] 8.4 g/dL 11.8-15.[address] [facility] Hemogram CBC Without Diffon 07-02-2023 Erythrocyte distribution width (RBC) [Ratio] 14.2 % Normal 11.9-15.[address] [facility] Comment on above: Performed By: #### V [id number], MG, BMP, JOSE, FE and TIBC, RETIC #### [facility] [address] Hematocrit (Bld) [Volume fraction] 25.0 % Low 34.0-46.[address] [facility] Comment on above: Performed By: #### V [id number], MG, BMP, JOSE, FE and TIBC, RETIC #### [address] Hemoglobin (Bld) [Mass/Vol] 8.4 g/dL Low 11.8-15.[address] [facility] Comment on above: Performed By: #### V [id number], MG, BMP, JOSE, FE and TIBC, RETIC #### [address] MCH (RBC) [Entitic mass] 32.3 pg Normal 24.7-34.[address] [facility] Comment on above: Performed By: #### V [id number], MG, BMP, JOSE, FE and TIBC, RETIC #### [address] MCV (RBC) [Entitic vol] 96.6 fL Normal 80-[address] [facility] Comment on above: Performed By: #### V [id number], MG, BMP, JOSE, FE and TIBC, RETIC #### [address] Mean Corpuscular HGB Conc 33.4 g/dL Normal 32.0-35.[address] [facility] Comment on above: Performed By: #### V [id number], MG, BMP, JOSE, FE and TIBC, RETIC #### [address] Platelet mean volume (Bld) [Entitic vol] 7.7 fL Normal 6.3-10.[address] [facility] Comment on above: Result Comment: PERF ORMED BY: [place] [address] PATHOLOGIST DOOR FR[employer] BUILDER TANNER GAVIN M.D. Performed By: #### V [id number], MG, BMP, JOSE, FE and TIBC, RETIC #### [address] Platelets (Bld) [#/Vol] 217 10*3/uL Normal 150-[address] [facility] Comment on above: Performed By: #### V [id number], MG, BMP, JOSE, FE and TIBC, RETIC #### [facility] [address] RBC (Bld) [#/Vol] 2.59 10*6/uL Low 3.60-5.00 [facility] Comment on above: Performed By: #### V [id number], MG, BMP, JOSE, FE and TIBC, RETIC #### [facility] [address] WBC (Bld) [#/Vol] 6.1 10*3/uL Normal 3.8-11.6 [facility] Comment on above: Performed By: #### V [id number], MG, BMP, JOSE, FE and TIBC, RETIC #### [facility] [address] Leukocytes [#/volume] correc nicol for nucleated erythrocytes in Blood by Automated counOrdered By: Jim Randhawa on 07-02-2023 WBC corrected for nucl RBC Auto (Bld) [#/Vol] 6.1 10*3/uL 3.8-11.[address] [facility] MCH Auto (RBC) [Entitic mass ]Ordered By: Jim Randhawa on 07-02-2023 MCH (RBC) [Entitic mass] 32.3 pg 24.7-34.[address] [facility] MCHC Auto (RBC) [Mass/Vol]Or dered By: Jim Randhawa on 07-02-2023 MCHC (RBC) [Mass/Vol] 33.4 g/dL 32.0-35.0 [facility] MCV Auto (RBC) [Entitic vol] Ordered By: iJm Randhawa on 07-02-2023 MCV (RBC) [Entitic vol] 96.6 fL 80-[address] [facility] Magnesiumon 07-02-2023 Magnesium [Mass/Vol] 2.1 mg/dL Normal 1.9-2.7 [facility] Comment on above: Result Comment: PERF ORMED BY: [place] [address] PATHOLOGIST DOOR FRAME BUILDER TANNER GAVIN M.D. Performed By: #### V [id number], MG, BMP, JOSE, FE and TIBC, RETIC #### [facility] [address] [place] [address] Platelet mean volume Auto (B ld) [Entitic vol]Ordered By: Jim Randhawa on 07-02-2023 Platelet mean volume (Bld) [Entitic vol] 7.7 fL 6.3-10.[address] [facility] Platelets Auto (Bld) [#/Vol] Ordered By: Jim Randhawa on 07-02-2023 Platelets (Bld) [#/Vol] 217 10*3/uL 150-[address] [facility] RBC Auto (Bld) [#/Vol]Ordere d By: Jim Randhawa on 07-02-2023 RBC (Bld) [#/Vol] 2.59 10*6/uL 3.60-5.00 [facility] Basic Metabolic Panelon Anion gap [Moles/Vol] 11.9 mmol/L Normal 6.0-15.0 [facility] Comment on above: Order Comment: LINE DRAW Performed By: #### V [id number], MG, BMP, JOSE, FE and TIBC, RETIC #### [address] Calcium [Mass/Vol] 8.9 mg/dL Normal 8.6-10.3 [facility] Comment on above: Order Comment: LINE DRAW Performed By: #### V [id number], MG, BMP, JOSE, FE and TIBC, RETIC #### [facility] [address] [place] [address] Chloride [Moles/Vol] 108 mmol/L High 98-107 [facility] Comment on above: Order Comment: LINE DRAW Performed By: #### V [id number], MG, BMP, JOSE, FE and TIBC, RETIC #### [place] [id number] [place] CO2 [Moles/Vol] 18.5 mmol/L Low 21.0-31.0 [facility] Comment on above: Order Comment: LINE DRAW Performed By: #### V [id number], MG, BMP, JOSE, FE and TIBC, RETIC #### [facility] [address] Creatinine [Mass/Vol] 2.63 mg/dL Significan t change up 0.60-1.[address] [facility] Comment on above: Order Comment: LINE DRAW Performed By: #### V [id number], MG, BMP, JOSE, FE and TIBC, RETIC #### [facility] [address] Creatinine Clr Calc Pharmacy 23.09 [facility] Comment on above: Order Comment: LINE DRAW Performed By: #### V [id number], MG, BMP, JOSE, FE and TIBC, RETIC #### [address] GFR/1.73 sq M.predicted MDRD (S/P/Bld) [Vol rate/Area] 20.085 mL/min/{1.73_m2} [facility] Comment on above: Order Comment: LINE DRAW Performed By: #### V [id number], MG, BMP, JOSE, FE and TIBC, RETIC #### [address] Glucose [Mass/Vol] 128 mg/dL High 70-100 [facility] Comment on above: Order Comment: LINE DRAW Result Comment: Bailey Glucose Reference Range is dependent on time and content of last meal. Glucose of more than 200 mg/dL in a nonstressed, ambulatory subject supports the diagnosis of Diabetes Mellitus. ADA recommended reference range Performed By: #### V [id number], MG, BMP, JOSE, FE and TIBC, RETIC #### [facility] [address] Potassium [Moles/Vol] 4.4 mmol/L Normal 3.5-5.1 [facility] Comment on above: Order Comment: LINE DRAW Performed By: #### V [id number], MG, BMP, JOSE, FE and TIBC, RETIC #### [address] Sodium [Moles/Vol] 134 mmol/L Low 136-145 [facility] Comment on above: Order Comment: LINE DRAW Performed By: #### V [id number], MG, BMP, JOSE, FE and TIBC, RETIC #### [address] Urea nitrogen [Mass/Vol] 104 mg/dL High 7-[address] [facility] Comment on above: Order Comment: LINE DRAW Performed By: #### V [id number], MG, BMP, JOSE, FE and TIBC, RETIC #### [address] Magnesiumon 07-01-2023 Magnesium [Mass/Vol] 2.3 mg/dL Normal 1.9-2.7 [facility] Comment on above: Order Comment: LINE DRAW Result Comment: PERF ORMED BY: [place] [address] PATHOLOGIST DOOR FRAME BUILDER TANNER GAVIN M.D. Performed By: #### V [id number], MG, BMP, JOSE, FE and TIBC, RETIC #### [address] Basic Metabolic Panelon Anion gap [Moles/Vol] 14.6 mmol/L Normal 6.0-15.0 [facility] Comment on above: Performed By: #### V [id number], MG, BMP, JOSE, FE and TIBC, RETIC #### [address] Calcium [Mass/Vol] 8.6 mg/dL Normal 8.6-10.3 [facility] Comment on above: Performed By: #### V [id number], MG, BMP, JOSE, FE and TIBC, RETIC #### [address] [place] [address] [place] Chloride [Moles/Vol] 109 mmol/L High 98-107 [facility] Comment on above: Performed By: #### V [id number], MG, BMP, JOSE, FE and TIBC, RETIC #### [address] CO2 [Moles/Vol] 15.0 mmol/L Low 21.0-31.0 [facility] Comment on above: Performed By: #### V [id number], MG, BMP, JOSE, FE and TIBC, RETIC #### [address] Creatinine [Mass/Vol] 3.16 mg/dL High 0.60-1.20 [facility] Comment on above: Performed By: #### V [id number], MG, BMP, JOSE, FE and TIBC, RETIC #### [address] Creatinine Clr Calc Pharmacy 19.26 [facility] Comment on above: Performed By: #### V [id number], MG, BMP, JOSE, FE and TIBC, RETIC #### [address] GFR/1.73 sq M.predicted MDRD (S/P/Bld) [Vol rate/Area] 16.114 mL/min/{1.73_m2} [facility] Comment on above: Performed By: #### V [id number], MG, BMP, JOSE, FE and TIBC, RETIC #### [address] Glucose [Mass/Vol] 79 mg/dL Normal 70-100 [facility] Comment on above: Result Comment: [facility] Glucose Reference Range is dependent on time and content of last meal. Glucose of more than 200 mg/dL in a nonstressed, ambulatory subject supports the diagnosis of Diabetes Mellitus. ADA recommended reference range Performed By: #### V [id number], MG, BMP, JOSE, FE and TIBC, RETIC #### [address] [place] [address] [place] Potassium [Moles/Vol] 4.6 mmol/L Normal 3.5-5.1 [facility] Comment on above: Performed By: #### V [id number], MG, BMP, JOSE, FE and TIBC, RETIC #### [address] Sodium [Moles/Vol] 134 mmol/L Low 136-145 [facility] Comment on above: Performed By: #### V [id number], MG, BMP, JOSE, FE and TIBC, RETIC #### [address] Urea nitrogen [Mass/Vol] 117 mg/dL High - [facility] Comment on above: Performed By: #### V [id number], MG, BMP, JOSE, FE and TIBC, RETIC #### [address] Magnesiumon 06-30-2023 Magnesium [Mass/Vol] 2.5 mg/dL Normal 1.9-2.7 [facility] Comment on above: Result Comment: PERF ORMED BY: [place] [address] PATHOLOGIST DOOR FRAME BUILDER TANNER GAVIN M.D. Performed By: #### V [id number], MG, BMP, JOSE, FE and TIBC, RETIC #### [address] CBC AUTO DIFFon 11-22-2022 BASO # 0.0 103/ul Normal 0.0-0.1 [facility] Comment on above: Performed By: #### C BC ####[facility] [address] [place], [place] [address]Dr. Airam Tripahti Basophils/100 WBC (Bld) 0.6 % Normal 0.2-2.0 [facility] Comment on above: Performed By: #### C BC ####[facility] [address] [place] [address]Dr. Airam Tripathi EO # 0.1 103/ul Normal 0.0-0.7 [facility] Comment on above: Performed By: #### C BC ####[facility] [address] [place] [address]Dr. Selenaneil Tripathi Eosinophils/100 WBC (Bld) 1.7 % Normal 0.9-7.0 [facility] Comment on above: Performed By: #### C BC ####[facility] Gik[address]oj[address] [place], [place] [address]Dr. Selenaneil Tripathi Erythrocyte distribution width (RBC) [Ratio] 15.2 % Critically high 11.0-15.0 [facility] Comment on above: Performed By: #### C BC ####[facility] [address] [place], [place] [address]Dr. Airam Tripathi Hematocrit (Bld) [Volume fraction] 31.6 % Critically low 36.0-48.0 [facility] Comment on above: Performed By: #### C BC ####[facility] Tij[address] [place], [place] [address]Dr. Selenaneil Tripathi Hemoglobin (Bld) [Mass/Vol] 9.9 g/dL Critically low 12.0-16.0 [facility] Comment on above: Performed By: #### C BC ####[facility] [address] [place], [place] [address]Dr. Airam Tripathi IG # 0.02 10e3/ul Normal 0.00-0.03 [facility] Comment on above: Performed By: #### C BC ####[facility] [address] [place], [place] [address]Dr. Airam Tripathi IG % 0.4 % Normal 0.0-0.5 [facility] Comment on above: Performed By: #### C BC ####[facility] M[address] [place], [place] [address]Dr. Airam Tripathi LYMPH # 0.8 103/ul Critically low 1.2-3.8 [facility] Comment on above: Performed By: #### C BC ####[facility] T[address] [place], [place] [address]Dr. Airam Tripathi Lymphocytes/100 WBC (Bld) 16.9 % Critically low 20.5-60.0 [facility] Comment on above: Performed By: #### C BC ####[facility] Rceqvx[address]xjp8274 [place] [address]DrKianna Tripathi MANUAL DIFF REQ NO Normal [facility] Comment on above: Performed By: #### C BC ####[facility] Rcztyctnur3764 [place] [address]Dr. Airam Tripathi MCH (RBC) [Entitic mass] 28.4 pg Normal 26.7-34.0 [facility] Comment on above: Performed By: #### C BC ####[facility] [address] [place], [place] [address]DrKianna Tripathi MCHC (RBC) [Mass/Vol] 31.3 g/dL Normal 29.9-35.2 [facility] Comment on above: Performed By: #### C BC ####[facility] Igcc[address] [place], [place] [address]DrKianna Tripathi MCV (RBC) [Entitic vol] 90.8 fL Normal 81.0-99.0 [facility] Comment on above: Performed By: #### C BC ####[facility] [address] [place], [place] [address]DrKianna Tripathi MONO # 0.4 103/ul Normal 0.3-0.8 [facility] Comment on above: Performed By: #### C BC ####[facility] Sk[address] [place], [place] [address]DrKianna Tripathi Monocytes/100 WBC (Bld) 8.9 % Normal 1.7-12.0 [facility] Comment on above: Performed By: #### C BC ####[facility] [address] [place], [place] [address]DrKianna Tripathi NEUT # 3.4 103/ul Normal 1.4-6.5 [facility] Comment on above: Performed By: #### C BC ####[facility] [address] [place], [place] [address]DrKianna Tripathi Neutrophils/100 WBC (Bld) 71.5 % Normal 43.0-75.0 [facility] Comment on above: Performed By: #### C BC ####[facility] Lw[address]ip1438 [place] [address]DrKianna Tripathi Platelet mean volume (Bld) [Entitic vol] 9.4 fL Critically low 9.5-13.5 [facility] Comment on above: Performed By: #### C BC ####[facility] Bbrcdcpxlr2484 [place] [address]DrKianna Tripathi PLT 302 103/ul Normal 150-450 [facility] Comment on above: Performed By: #### C BC ####[facility] Qemfqoyzrb9659 [place] [address]DrKianna Tripathi RBC 3.48 106/ul Critically low 4.20-5.40 [facility] Comment on above: Performed By: #### C BC ####[facility] Ade[address]te[address] [place], [place] [address]DrKianna Tripathi WBC 4.7 103/ul Normal 4.0-11.0 [facility] Comment on above: Performed By: #### C BC ####[facility] Hna[address]segfw[address] [place], [place] [address]Dr. Airam Tripathi PROF 14(COMP METB)on 023 Albumin [Mass/Vol] 3.4 g/dL Normal 3.4-5.0 [facility] Comment on above: Performed By: #### C MP ####[facility] [address]xe32[address] [place] [address]DrKianna Tripathi Albumin/Globulin [Mass ratio] 1.0 {ratio} Normal [facility] Comment on above: Performed By: #### C MP ####[facility] Ltmjaxocho8728 [place] [address]DrKianna Tripathi ALP [Catalytic activity/Vol] 123 U/L Critically high 46-116 [facility] Comment on above: Performed By: #### C MP ####[facility] Zpragfbnaq7144 [place] [address]Dr. Airam Tripathi ALT [Catalytic activity/Vol] 24 U/L Normal 14-59 [facility] Comment on above: Performed By: #### C MP ####[facility] Wo[address]13 [place] [phone]. Selenaneil Deuce Anion gap [Moles/Vol] 12.1 mmol/L Normal Th [facility] Comment on above: Performed By: #### C MP ####[facility] [address] [place], [place] [address]Dr. Selenaneil Tripathi AST [Catalytic activity/Vol] 30 U/L Normal 15-37 [facility] Comment on above: Performed By: #### C MP ####[facility] R[address]jbi[address] [place], [place] [address]Dr. Airam Tripathi Bilirubin [Mass/Vol] 0.4 mg/dL Normal 0.2-1.0 [facility] Comment on above: Performed By: #### C MP ####[facility] Ktfbev[address] [place], [place] [address]Dr. Airam Tripathi Calcium [Mass/Vol] 8.9 mg/dL Normal 8.5-10.1 [facility] Comment on above: Performed By: #### C MP ####[facility] Longwgvjzw[address] [place], [place] [address]Dr. Airam Tripathi Chloride [Moles/Vol] 95 mmol/L Critically low 98-107 [facility] Comment on above: Performed By: #### C MP ####[facility] Y[address] [place], [place] [address]Dr. Airam Tripathi CO2 [Moles/Vol] 28.7 mmol/L Normal 21.0-32.0 [facility] Comment on above: Performed By: #### C MP ####[facility] Klpumb[address]yl[address] [place], [place] [address]Dr. Airam Tripathi Creatinine [Mass/Vol] 1.25 mg/dL Critically high 0.55-1.02 [facility] Comment on above: Performed By: #### C MP ####[facility] Netk[address]cegs[address] [place], [place] [address]Dr. Airam Tripathi EGFR-AF ISRAELI 53 mL/min/1.73m2 Critically low >=60 [facility] Comment on above: Performed By: #### C MP ####[facility] Cmieakoxrx0671 [place] [address]Dr. Airam Deuce EGFR-NON AF ISRAELI 44 mL/min/1.73m2 Critically low >=60 [facility] Comment on above: Performed By: #### C MP ####[facility] Uauspmtien9806 [place] [address]Dr. Airam Deuce Globulin (S) [Mass/Vol] 3.5 g/dL Normal [facility] Comment on above: Performed By: #### C MP ####[facility] [address]ye[address]nxkujc[address] [place], [place] [address]Dr. Airam Tripathi Glucose [Mass/Vol] 89 mg/dL Normal 74-106 [facility] Comment on above: Performed By: #### C MP ####[facility] Qmgxksoyfi1080 [place] [address]Dr. Selenaneil Deuce Potassium [Moles/Vol] 4.8 mmol/L Normal 3.5-5.1 [facility] Comment on above: Performed By: #### C MP ####[facility] [address]usciycee[address] [place], [place] [address]Dr. Selenaneil Tripathi Protein [Mass/Vol] 6.9 g/dL Normal 6.4-8.2 [facility] Comment on above: Performed By: #### C MP ####[facility] Enyebmcxwr0128 [place] [address]Dr. Airam Tripathi Sodium [Moles/Vol] 131 mmol/L Critically low 136-145 Th [facility] Comment on above: Performed By: #### C MP ####[facility] Cxzbcgigly6915 [place] [address]Dr. Airam Tripathi Urea nitrogen [Mass/Vol] 37.0 mg/dL Critically high 7.0-18.0 [facility] Comment on above: Performed By: #### C MP ####[facility] Ak[address]xs[address] [place], [place] [address]Dr. Airam Tripathi Urea nitrogen/Creatinine [Mass ratio] 29.6 mg/mg Normal [facility] Comment on above: Performed By: #### C MP ####[facility] Hbxoupcpou[address] [place], [place] [address]Dr. Airam Tripathi OSMOLALITYon 11-18-2022 Osmolality [Osmolality] 293 mosm/kg Normal 275-295 [facility] Comment on above: Performed By: #### O SMO ####[facility] Nomlxnsgcy[address] [place], [place] [address]Dr. Airam Tripathi BNPon 11-16-2022 Natriuretic peptide B (Bld) [Mass/Vol] 1142.0 pg/mL Critically high <=900.0 [facility] Comment on above: Performed By: #### B QUALITY ASSURANCE CLERK ####[facility] Vsirixwy[address] [place], [place] [address]Dr. Airam Tripathi CBC AUTO DIFFon 11-16-2022 BASO # 0.0 103/ul Normal 0.0-0.1 [facility] Comment on above: Performed By: #### C BC ####[facility] Kn[address]aviuco[address] [place], [place] [address]Dr. Airam Tripathi Basophils/100 WBC (Bld) 0.3 % Normal 0.2-2.0 [facility] Comment on above: Performed By: #### C BC ####[facility] Jmy[address]hy[address] [place], [place] [address]Dr. Airam Tripathi EO # 0.3 103/ul Normal 0.0-0.7 [facility] Comment on above: Performed By: #### C BC ####[facility] [address]vtft[address]jl[address] [place], [place] [address]Dr. Airam Tripathi Eosinophils/100 WBC (Bld) 4.6 % Normal 0.9-7.0 [facility] Comment on above: Performed By: #### C BC ####[facility] C[address]ew[address]orn[address] [place], [place] [address]Dr. Airam Tripathi Erythrocyte distribution width (RBC) [Ratio] 16.1 % Critically high 11.0-15.0 [facility] Comment on above: Performed By: #### C BC ####[facility] Clgyqclimw1805 [place] [address]Dr. Ariam Tripathi Hematocrit (Bld) [Volume fraction] 28.0 % Critically low 36.0-48.0 [facility] Comment on above: Performed By: #### C BC ####[facility] Cbvygdrgmn0464 [place] [address]Dr. Selenaneil Tripathi Hemoglobin (Bld) [Mass/Vol] 8.9 g/dL Critically low 12.0-16.0 [facility] Comment on above: Performed By: #### C BC ####[facility] [address] [place], [place] [address]Dr. Airam Tripathi IG # 0.02 10e3/ul Normal 0.00-0.03 [facility] Comment on above: Performed By: #### C BC ####[facility] P[address]my[address]vumk[address] [place], [place] [address]Dr. Airam Tripathi IG % 0.3 % Normal 0.0-0.5 [facility] Comment on above: Performed By: #### C BC ####[facility] Aoaupkcyfb[address] [place], [place] [address]Dr. Airam Tripathi LYMPH # 1.5 103/ul Normal 1.2-3.8 [facility] Comment on above: Performed By: #### C BC ####[facility] [address]fkuksdn[address] [place], [place] [address]Dr. Airam Tripathi Lymphocytes/100 WBC (Bld) 24.2 % Normal 20.5-60.0 [facility] Comment on above: Performed By: #### C BC ####[facility] W[address]es[address]yvf[address] [place], [place] [address]Dr. Airam Tripathi MANUAL DIFF REQ NO Normal [facility] Comment on above: Performed By: #### C BC ####[facility] K[address]xy[address] [place], [place] [address]Dr. Airam Tripathi MCH (RBC) [Entitic mass] 29.3 pg Normal 26.7-34.0 [facility] Comment on above: Performed By: #### C BC ####[facility] Un[address]qi[address] [place] [phone]. Airam Tripathi MCHC (RBC) [Mass/Vol] 31.8 g/dL Normal 29.9-35.2 [facility] Comment on above: Performed By: #### C BC ####[facility] Nphgvxojjm3288 [place] [phone]. Airam Tripathi MCV (RBC) [Entitic vol] 92.1 fL Normal 81.0-99.0 [facility] Comment on above: Performed By: #### C BC ####[facility] Vthrmofkgw9563 [place] [phone]. Airam Tripathi MONO # 0.6 103/ul Normal 0.3-0.8 [facility] Comment on above: Performed By: #### C BC ####[facility] Fvuapbvixv[address] [place], [place] [address]Dr. Airam Deuce Monocytes/100 WBC (Bld) 10.0 % Normal 1.7-12.0 [facility] Comment on above: Performed By: #### C BC ####[facility] [address] [place], [place] [address]Dr. Airam Tripathi NEUT # 3.7 103/ul Normal 1.4-6.5 [facility] Comment on above: Performed By: #### C BC ####[facility] [address] [place], [place] [address]Dr. Airam Tripathi Neutrophils/100 WBC (Bld) 60.6 % Normal 43.0-75.0 [facility] Comment on above: Performed By: #### C BC ####[facility] Skxhtshnmo5[address] [place] [phone]. Airam Tripathi Platelet mean volume (Bld) [Entitic vol] 9.1 fL Critically low 9.5-13.5 [facility] Comment on above: Performed By: #### C BC ####[facility] [address] [place], [place] [address]Dr. Airam Deuce PLT 242 103/ul Normal 150-450 [facility] Comment on above: Performed By: #### C BC ####[facility] Afnoxqqwup8738 [place] [phone]. Airam Tripathi RBC 3.04 106/ul Critically low 4.20-5.40 [facility] Comment on above: Performed By: #### C BC ####[facility] Nvgqzvmxcm8111 [place] [address]Dr. Airam Tripathi WBC 6.1 103/ul Normal 4.0-11.0 [facility] Comment on above: Performed By: #### C BC ####[facility] Xjjckhcgvs44[address] [place] [address]Dr. Airam Tripathi CT STROKE HEAD WOon 11-17-19 CT STROKE HEAD WO Normal [facility] PROF CHEM 8 (BAS METB)on Anion gap [Moles/Vol] 9.8 mmol/L Normal [facility] Comment on above: Performed By: #### B GERTRUDE, HSTROPN ####[facility] [address]muum[address] [place] [address]Dr. Airam Deuce Calcium [Mass/Vol] 8.4 mg/dL Critically low 8.5-10.1 [facility] Comment on above: Performed By: #### B GERTRUDE HSTROPN ####[facility] Ozyhlusp[address] [place], [place] [address]Dr. Airam Deuce Chloride [Moles/Vol] 99 mmol/L Normal 98-107 [facility] Comment on above: Performed By: #### B GERTRUDE, HSTROPN ####[facility] Nksejnmqbv[address] [place] [address]Dr. Airam Tripathi CO2 [Moles/Vol] 28.3 mmol/L Normal 21.0-32.0 [facility] Comment on above: Performed By: #### B GERTRUDE, HSTROPN ####[facility] Hjehsazpx[address] [place], [place] [address]Dr. Airam Deuce Creatinine [Mass/Vol] 1.40 mg/dL Critically high 0.55-1.02 [facility] Comment on above: Performed By: #### B GERTRUDE, HSTROPN ####[facility] [address]mx[address]do[address] [place] [address]Dr. Airam Deuce EGFR-AF ISRAELI 46 mL/min/1.73m2 Critically low >=60 [facility] Comment on above: Performed By: #### B GERTRUDE, HSTROPN ####[facility] Ej[address]jpx[address] [place] [address]Dr. Airam Tripathi EGFR-NON AF ISRAELI 38 mL/min/1.73m2 Critically low >=60 [facility] Comment on above: Performed By: #### B GERTRUDE, HSTROPN ####[facility] M[address]izfdin[address] [place] [address]Dr. Selenaneil Tripathi Glucose [Mass/Vol] 88 mg/dL Normal 74-106 [facility] Comment on above: Performed By: #### B GERTRUDE, HSTROPN ####[facility] Rjddvjjwab[address] [place], [place] [address]Dr. Airam Tripathi Potassium [Moles/Vol] 5.1 mmol/L Normal 3.5-5.1 [facility] Comment on above: Performed By: #### B GERTRUDE, HSTROPN ####[facility] Tncwhgplog[address] [place] [address]Dr. Selenaneil Tripathi Sodium [Moles/Vol] 132 mmol/L Critically low 136-145 Th [facility] Comment on above: Performed By: #### B GERTRUDE, HSTROPN ####[facility] Dzevxlpium[address] [place], [place] [address]Dr. Airam Deuce Urea nitrogen [Mass/Vol] 56.0 mg/dL Critically high 7.0-18.0 [facility] Comment on above: Performed By: #### Bob LOREDO, HSTROPN ####[facility] [address]xejbin[address] [place] [address]Dr. Airam Tripathi Urea nitrogen/Creatinine [Mass ratio] 40.0 mg/mg Normal [facility] Comment on above: Performed By: #### B GERTRUDE, HSTROPN ####[facility] Dmuznlnjof[address] [place] [address]Dr. Airam Tripathi TROPONIN, HIGH SENSITIVITYon 11-16-2022 HSTROP 9.9 pg/mL Normal 4.0-51.3 [facility] Comment on above: Result Comment: CUT- OFF POINTS HAVE BEEN ESTABLISHED BASED ON THE FOURTH UNIVERSAL DEFINITIONS OF MYOCARDIALINFARCTION. THE UPPER REFERENCE LIMIT (URL) OF TROPONIN, DEFINED THE 99TH PERCENTILE OFcTnI DISTRIBUTION IN A REFERENCE POPULATION, HAS BEEN CONFIRMED THE DECISION THRESHOLDFOR ID DIAGNOSIS. Performed By: #### B MP, HSTROPN ####[facility] Raaclonddr[address] [place] [address]Dr. Airam Tripathi XR CHEST 1 Von 11-16-2022 XR CHEST 1 V Normal [facility] CBC AUTO DIFFon 11-11-2022 BASO # 0.0 103/ul Normal 0.0-0.1 [facility] Comment on above: Performed By: #### C BC ####[facility] Bheggymngq8[address] [place], [place] [address]Dr. Airam Tripathi Basophils/100 WBC (Bld) 0.4 % Normal 0.2-2.0 [facility] Comment on above: Performed By: #### C BC ####[facility] Hoamsqicfc[address] [place], [place] [address]Dr. Airam Deuce EO # 0.4 103/ul Normal 0.0-0.7 [facility] Comment on above: Performed By: #### C BC ####[facility] Cwvqkcrfuh[address] [place], [place] [address]Dr. Airam Tripathi Eosinophils/100 WBC (Bld) 4.6 % Normal 0.9-7.0 [facility] Comment on above: Performed By: #### C BC ####[facility] Fkeyflreoz[address] [place], [place] [address]Dr. Selenaneil Tripathi Erythrocyte distribution width (RBC) [Ratio] 15.8 % Critically high 11.0-15.0 [facility] Comment on above: Performed By: #### C BC ####[facility] Wcbrngxoek[address] [place], [place] [address]Dr. Airam Tripathi Hematocrit (Bld) [Volume fraction] 30.3 % Critically low 36.0-48.0 [facility] Comment on above: Performed By: #### C BC ####[facility] Xrkovyxeys[address] [place] [address]Dr. Airam Tripathi Hemoglobin (Bld) [Mass/Vol] 9.3 g/dL Critically low 12.0-16.0 [facility] Comment on above: Performed By: #### C BC ####[facility] Vahmfrdjsm[address] [place] [address]Dr. Airam Tripathi IG # 0.03 10e3/ul Normal 0.00-0.03 [facility] Comment on above: Performed By: #### C BC ####[facility] Uvxmbjjckw[address] [place], [place] [address]Dr. Airam Tripathi IG % 0.4 % Normal 0.0-0.5 [facility] Comment on above: Performed By: #### C BC ####[facility] Kbyzeudodw[address] [place], [place] [address]Dr. Airam Tripathi LYMPH # 2.0 103/ul Normal 1.2-3.8 [facility] Comment on above: Performed By: #### C BC ####[facility] Kmkarngqpv[address] [place], [place] [address]Dr. Airam Tripathi Lymphocytes/100 WBC (Bld) 24.5 % Normal 20.5-60.0 [facility] Comment on above: Performed By: #### C BC ####[facility] Diqgmhyhzi[address] [place], [place] [address]Dr. Airam Tripathi MANUAL DIFF REQ NO Normal [facility] Comment on above: Performed By: #### C BC ####[facility] Nqkfgqyvti[address] [place], [place] [address]Dr. Airam Tripathi MCH (RBC) [Entitic mass] 28.9 pg Normal 26.7-34.0 [facility] Comment on above: Performed By: #### C BC ####[facility] Yvybxnxrgu[address] [place], [place] [address]Dr. Airam Tripathi MCHC (RBC) [Mass/Vol] 30.7 g/dL Normal 29.9-35.2 [facility] Comment on above: Performed By: #### C BC ####[facility] [address] [place] [phone]. Airam Tripathi MCV (RBC) [Entitic vol] 94.1 fL Normal 81.0-99.0 [facility] Comment on above: Performed By: #### C BC ####[facility] [address]irxdmevh[address] [place] [phone]. Airam Tripathi MONO # 0.7 103/ul Normal 0.3-0.8 [facility] Comment on above: Performed By: #### C BC ####[facility] [address]htdh4[address] [place] [phone]. Airam Tripathi Monocytes/100 WBC (Bld) 8.3 % Normal 1.7-12.0 [facility] Comment on above: Performed By: #### C BC ####[facility] Qjfhkxwcum[address] [place], [place] [address]Dr. Airam Tripathi NEUT # 5.0 103/ul Normal 1.4-6.5 [facility] Comment on above: Performed By: #### C BC ####[facility] T[address]xfi[address] [place], [place] [address]Dr. Airam Tripathi Neutrophils/100 WBC (Bld) 61.8 % Normal 43.0-75.0 [facility] Comment on above: Performed By: #### C BC ####[facility] D[address]robtrla[address] [place], [place] [address]Dr. Airam Tripathi Platelet mean volume (Bld) [Entitic vol] 9.4 fL Critically low 9.5-13.5 [facility] Comment on above: Performed By: #### C BC ####[facility] [address]ir[address] [place] [phone]. Airam Tripathi PLT 270 103/ul Normal 150-450 [facility] Comment on above: Performed By: #### C BC ####[facility] [address]zrclnv[address] [place] [phone]. Airam Tripathi RBC 3.22 106/ul Critically low 4.20-5.40 [facility] Comment on above: Performed By: #### C BC ####[facility] H[address]asukbl[address] [place] [address]Dr. Airam Tripathi WBC 8.1 103/ul Normal 4.0-11.0 [facility] Comment on above: Performed By: #### C BC ####[facility] Zkclthmwqb[address] [place], [place] [address]Dr. Airam Tripathi PROF 14(COMP METB)on 023 Albumin [Mass/Vol] 3.2 g/dL Critically low 3.4-5.0 [facility] Comment on above: Performed By: #### C MP ####[facility] Fwjquiwaju[address] [place], [place] [address]Dr. Airam Tripathi Albumin/Globulin [Mass ratio] 1.0 {ratio} Normal [facility] Comment on above: Performed By: #### C MP ####[facility] Briqstkjsf[address] [place], [place] [address]Dr. Airam Tripathi ALP [Catalytic activity/Vol] 108 U/L Normal 46-116 [facility] Comment on above: Performed By: #### C MP ####[facility] Apqbnabt[address] [place], [place] [address]Dr. Airam Tripathi ALT [Catalytic activity/Vol] 30 U/L Normal 14-59 [facility] Comment on above: Performed By: #### C MP ####[facility] Pfezqlyvsy[address] [place], [place] [address]Dr. iAram Tripathi Anion gap [Moles/Vol] 12.8 mmol/L Normal [facility] Comment on above: Performed By: #### C MP ####[facility] P[address]rz[address] [place], [place] [address]Dr. Airam Tripathi AST [Catalytic activity/Vol] 33 U/L Normal 15-37 [facility] Comment on above: Performed By: #### C MP ####[facility] Munwamtlzj[address] [place], [place] [address]Dr. Airam Tripathi Bilirubin [Mass/Vol] 0.2 mg/dL Normal 0.2-1.0 [facility] Comment on above: Performed By: #### C MP ####[facility] [address] [place] [address]Dr. Airam Tripathi Calcium [Mass/Vol] 8.3 mg/dL Critically low 8.5-10.1 Th [facility] Comment on above: Performed By: #### C MP ####[facility] Z[address]rcmqhdcq87[address] [place] [phone]. Airam Tripathi Chloride [Moles/Vol] 99 mmol/L Normal 98-107 [facility] Comment on above: Performed By: #### C MP ####[facility] Tznmzilvrc35[address] [place] [address]Dr. Airam Tripathi CO2 [Moles/Vol] 27.6 mmol/L Normal 21.0-32.0 [facility] Comment on above: Performed By: #### C MP ####[facility] Ak[address]zp[address]reb[address] [place], [place] [address]Dr. Airam Tripathi Creatinine [Mass/Vol] 2.01 mg/dL Critically high 0.55-1.02 [facility] Comment on above: Performed By: #### C MP ####[facility] [address] [place], [place] [address]Dr. Airam Tripathi EGFR-AF ISRAELI 31 mL/min/1.73m2 Critically low >=60 [facility] Comment on above: Performed By: #### C MP ####[facility] Utozezsqzz[address] [place], [place] [address]Dr. Airam Tripathi EGFR-NON AF ISRAELI 25 mL/min/1.73m2 Critically low >=60 [facility] Comment on above: Performed By: #### C MP ####[facility] [address]pqa[address] [place] [phone]. Airam Tripathi Globulin (S) [Mass/Vol] 3.2 g/dL Normal [facility] Comment on above: Performed By: #### C MP ####[facility] W[address]soyngzpy04[address] [place] [address]Dr. Airam Deuce Glucose [Mass/Vol] 158 mg/dL Critically high 74-106 T [facility] Comment on above: Performed By: #### C MP ####[facility] Ngxigjkuzd86[address] [place] [address]Dr. Airam Tripathi Potassium [Moles/Vol] 5.4 mmol/L Critically high 3.5-5.1 [facility] Comment on above: Performed By: #### C MP ####[facility] Ead[address]rzwez[address] [place] [address]Dr. Airam Tripathi Protein [Mass/Vol] 6.4 g/dL Normal 6.4-8.2 [facility] Comment on above: Performed By: #### C MP ####[facility] L[address]hyxvwtpd7[address] [place] [address]Dr. Airam Tripathi Sodium [Moles/Vol] 134 mmol/L Critically low 136-145 Th [facility] Comment on above: Performed By: #### C MP ####[facility] Ypokmlrgkw[address] [place], [place] [address]Dr. Airam Deuce Urea nitrogen [Mass/Vol] 52.0 mg/dL Critically high 7.0-18.0 [facility] Comment on above: Performed By: #### C MP ####[facility] S[address]fqwaajj[address] [place] [address]Dr. Airam Tripathi Urea nitrogen/Creatinine [Mass ratio] 25.9 mg/mg Normal [facility] Comment on above: Performed By: #### C MP ####[facility] V[address]oyiygkvx8[address] [place] [address]Dr. Airam Tripathi OSMOLALITYon 11-06-2022 Osmolality [Osmolality] 261 mosm/kg Critically low 275-295 [facility] Comment on above: Performed By: #### O SMO ####[facility] Lamobcqwxp233[address] [place], [place] [address]Dr. Airam Deuce XR HIPS GUMARO 3_4V WO PELVISon 11-04-2022 XR HIPS GUMARO 3_4V WO PELVIS Normal [facility] XR KNEE LT 4V or >on 023 XR KNEE LT 4V or > Normal [facility] BNPon 11-03-2022 Natriuretic peptide B (Bld) [Mass/Vol] 1168.0 pg/mL Critically high <=900.0 [facility] Comment on above: Performed By: #### B QUALITY ASSURANCE CLERK, BMP ####[facility] Aagydxdsyh[address] [place] [address]Dr. Airam Tripathi CBC AUTO DIFFon 11-03-2022 BASO # 0.0 103/ul Normal 0.0-0.1 [facility] Comment on above: Performed By: #### C BC ####[facility] Xheksqhmbt[address] [place], [place] [address]Dr. Airam Tripathi Basophils/100 WBC (Bld) 0.3 % Normal 0.2-2.0 [facility] Comment on above: Performed By: #### C BC ####[facility] Tauhusmkfq[address] [place], [place] [address]Dr. Airam Tripathi EO # 0.2 103/ul Normal 0.0-0.7 [facility] Comment on above: Performed By: #### C BC ####[facility] Amzdfmpkzs26[address] [place], [place] [address]Dr. Airam Tripathi Eosinophils/100 WBC (Bld) 1.9 % Normal 0.9-7.0 [facility] Comment on above: Performed By: #### C BC ####[facility] Nrczqpzvem[address] [place], [place] [address]Dr. Airam Trpiathi Erythrocyte distribution width (RBC) [Ratio] 15.2 % Critically high 11.0-15.0 [facility] Comment on above: Performed By: #### C BC ####[facility] Sljpzevppx[address] [place], [place] [address]Dr. Airam Tripathi Hematocrit (Bld) [Volume fraction] 34.3 % Critically low 36.0-48.0 [facility] Comment on above: Performed By: #### C BC ####[facility] Tzfbreltdv022[address] [place], [place] [address]Dr. Airam Tripathi Hemoglobin (Bld) [Mass/Vol] 11.0 g/dL Critically low 12.0-16.0 [facility] Comment on above: Performed By: #### C BC ####[facility] Voxsuaswlq[address] [place], [place] [address]Dr. Airam Deuce IG # 0.06 10e3/ul Critically high 0.00-0.03 [facility] Comment on above: Performed By: #### C BC ####[facility] Vnjxxirlke5699 [place] [address]DrKianna Airam Tripathi IG % 0.5 % Normal 0.0-0.5 [facility] Comment on above: Performed By: #### C BC ####[facility] Pewljktkpc[address] [place], [place] [address]DrKianna Airam Tripathi LYMPH # 2.3 103/ul Normal 1.2-3.8 [facility] Comment on above: Performed By: #### C BC ####[facility] Uqqniraacn[address] [place], [place] [address]DrKianna Airam Deuce Lymphocytes/100 WBC (Bld) 20.4 % Critically low 20.5-60.0 [facility] Comment on above: Performed By: #### C BC ####[facility] Yfzxurbcyc[address] [place], [place] [address]DrKianna Airam Tripathi MANUAL DIFF REQ NO Normal [facility] Comment on above: Performed By: #### C BC ####[facility] J[address]daig[address] [place], [place] [address]DrKianna Airam Tripathi MCH (RBC) [Entitic mass] 28.7 pg Normal 26.7-34.0 [facility] Comment on above: Performed By: #### C BC ####[facility] Ac[address] [place], [place] [address]DrKianna Airam Tripathi MCHC (RBC) [Mass/Vol] 32.1 g/dL Normal 29.9-35.2 [facility] Comment on above: Performed By: #### C BC ####[facility] [address]zaajh[address] [place], [place] [address]DrKianna Airam Tripathi MCV (RBC) [Entitic vol] 89.6 fL Normal 81.0-99.0 [facility] Comment on above: Performed By: #### C BC ####[facility] [address]mb[address]wwx[address] [place], [place] [address]DrKianna Tripathi MONO # 0.9 103/ul Critically high 0.3-0.8 [facility] Comment on above: Performed By: #### C BC ####[facility] Cvhtujpaou[address] [place] [address]Dr. Airam Tripathi Monocytes/100 WBC (Bld) 8.3 % Normal 1.7-12.0 [facility] Comment on above: Performed By: #### C BC ####[facility] Ozmvveahgg7641 [place] [address]Dr. Airam Tripathi NEUT # 7.8 103/ul Critically high 1.4-6.5 [facility] Comment on above: Performed By: #### C BC ####[facility] Anozxdezno[address] [place] [address]Dr. Airam Tripathi Neutrophils/100 WBC (Bld) 68.6 % Normal 43.0-75.0 [facility] Comment on above: Performed By: #### C BC ####[facility] Xspffxteru2442 [place] [address]Dr. Airam Tripathi Platelet mean volume (Bld) [Entitic vol] 8.9 fL Critically low 9.5-13.5 [facility] Comment on above: Performed By: #### C BC ####[facility] Xvurfyoywb[address] [place], [place] [address]Dr. Airam Tripathi PLT 323 103/ul Normal 150-450 [facility] Comment on above: Performed By: #### C BC ####[facility] Qcfkzdjkxa6322 [place] [address]Dr. Airam Tripathi RBC 3.83 106/ul Critically low 4.20-5.40 [facility] Comment on above: Performed By: #### C BC ####[facility] Lqtjipkign6554 [place] [address]Dr. Airam Tripathi WBC 11.4 103/ul Critically high 4.0-11.0 [facility] Comment on above: Performed By: #### C BC ####[facility] Syqyumztqf[address] [place], [place] [address]Dr. Airam Tripathi BASO # 0.0 103/ul Normal 0.0-0.1 [facility] Comment on above: Performed By: #### C BC ####[facility] Vilkmhqdby0172 [place] [address]Dr. Airam Tripathi Basophils/100 WBC (Bld) 0.2 % Normal 0.2-2.0 [facility] Comment on above: Performed By: #### C BC ####[facility] Ocdaeacdsf[address] [place], [place] [address]Dr. Airam Tripathi EO # 0.1 103/ul Normal 0.0-0.7 [facility] Comment on above: Performed By: #### C BC ####[facility] Laeehkafft[address] [place], [place] [address]Dr. Airam Deuce Eosinophils/100 WBC (Bld) 0.7 % Critically low 0.9-7.0 [facility] Comment on above: Performed By: #### C BC ####[facility] Gwzygdrfpk[address] [place], [place] [address]Dr. Airam Tripathi Erythrocyte distribution width (RBC) [Ratio] 15.4 % Critically high 11.0-15.0 [facility] Comment on above: Performed By: #### C BC ####[facility] L[address]inyuuhmh[address] [place], [place] [address]Dr. Airam Tripathi Hematocrit (Bld) [Volume fraction] 33.6 % Critically low 36.0-48.0 [facility] Comment on above: Performed By: #### C BC ####[facility] Kzkgfbyvwd[address] [place], [place] [address]Dr. Airam Tripathi Hemoglobin (Bld) [Mass/Vol] 10.9 g/dL Critically low 12.0-16.0 [facility] Comment on above: Performed By: #### C BC ####[facility] Nsemibttak54[address] [place], [place] [address]Dr. Selenaneil Tripathi IG # 0.04 10e3/ul Critically high 0.00-0.03 [facility] Comment on above: Performed By: #### C BC ####[facility] H[address]lyzurn[address] [place], [place] [address]Dr. Selenaneil Tripathi IG % 0.5 % Normal 0.0-0.5 [facility] Comment on above: Performed By: #### C BC ####[facility] Jneicjkqsh[address] [place] [address]DrKianna Waltersneil Deuce LYMPH # 1.1 103/ul Critically low 1.2-3.8 [facility] Comment on above: Performed By: #### C BC ####[facility] Xfiiezeswk1393 [place] [address]Dr. Airam Tripathi Lymphocytes/100 WBC (Bld) 13.3 % Critically low 20.5-60.0 [facility] Comment on above: Performed By: #### C BC ####[facility] Qsghyxfwiy7646 [place] [address]DrKianna Tripathi MANUAL DIFF REQ NO Normal [facility] Comment on above: Performed By: #### C BC ####[facility] [address]zeudwb[address] [place], [place] [address]Dr. Airam Tripathi MCH (RBC) [Entitic mass] 29.1 pg Normal 26.7-34.0 [facility] Comment on above: Performed By: #### C BC ####[facility] [address]ijfxtxww[address] [place], [place] [address]Dr. Selenaneil Tripathi MCHC (RBC) [Mass/Vol] 32.4 g/dL Normal 29.9-35.2 [facility] Comment on above: Performed By: #### C BC ####[facility] [address]jtrg[address] [place], [place] [address]DrKianna Tripathi MCV (RBC) [Entitic vol] 89.6 fL Normal 81.0-99.0 [facility] Comment on above: Performed By: #### C BC ####[facility] I[address]bqn[address] [place], [place] [address]DrKianna Tripathi MONO # 0.5 103/ul Normal 0.3-0.8 [facility] Comment on above: Performed By: #### C BC ####[facility] Iuypqjxshb6190 [place] [address]Dr. Airam Tripathi Monocytes/100 WBC (Bld) 6.4 % Normal 1.7-12.0 [facility] Comment on above: Performed By: #### C BC ####[facility] Awndxwjhjn74[address] [place] [address]Dr. Airam Tripathi NEUT # 6.5 103/ul Normal 1.4-6.5 [facility] Comment on above: Performed By: #### C BC ####[facility] [id number] [place] [address]Dr. Airam Tripathi Neutrophils/100 WBC (Bld) 78.9 % Critically high 43.0-75.0 [facility] Comment on above: Performed By: #### C BC ####[facility] Tix[address]lo[address] [place] [address]Dr. Airam Tripathi Platelet mean volume (Bld) [Entitic vol] 9.4 fL Critically low 9.5-13.5 [facility] Comment on above: Performed By: #### C BC ####[facility] Rcxrlbcfxh8[address] [place] [address]Dr. Airam Tripathi PLT 314 103/ul Normal 150-450 [facility] Comment on above: Performed By: #### C BC ####[facility] Qqrvdpyqfx[address] [place], [place] [address]Dr. Airam Tripathi RBC 3.75 106/ul Critically low 4.20-5.40 [facility] Comment on above: Performed By: #### C BC ####[facility] Nh[address]cfirlt60[address] [place] [address]Dr. Airam Tripathi WBC 8.3 103/ul Normal 4.0-11.0 [facility] Comment on above: Performed By: #### C BC ####[facility] Cphpaxswgx96[address] [place] [address]Dr[address] Airam Tripathi CT HEAD WO CONon 11-03-2022 CT HEAD WO CON Normal [facility] PROF 14(COMP METB)on 023 Albumin [Mass/Vol] 3.2 g/dL Critically low 3.4-5.0 Th [facility] Comment on above: Performed By: #### C MP ####[facility] Imwprmjhwi[address] [place] [address]Dr. Airam Tripathi Albumin/Globulin [Mass ratio] 0.9 {ratio} Normal [facility] Comment on above: Performed By: #### C MP ####[facility] Ni[address] [place], [place] [address]Dr. Airam Tripathi ALP [Catalytic activity/Vol] 109 U/L Normal 46-116 [facility] Comment on above: Performed By: #### C MP ####[facility] Dhjbgxqr[address] [place], [place] [address]Dr. Airam Tripathi ALT [Catalytic activity/Vol] 25 U/L Normal 14-59 [facility] Comment on above: Performed By: #### C MP ####[facility] Vugeyyjsbu[address] [place], [place] [address]Dr. Airam Tripathi Anion gap [Moles/Vol] 10.9 mmol/L Normal [facility] Comment on above: Performed By: #### C MP ####[facility] T[address]fmezuw[address] [place], [place] [address]Dr. Airam Tripathi AST [Catalytic activity/Vol] 24 U/L Normal 15-37 [facility] Comment on above: Performed By: #### C MP ####[facility] Sagrcylxnh[address] [place], [place] [address]Dr. Airam Tripathi Bilirubin [Mass/Vol] 0.3 mg/dL Normal 0.2-1.0 [facility] Comment on above: Performed By: #### C MP ####[facility] Umrcieikdt[address] [place], [place] [address]Dr. Airam Tripathi Calcium [Mass/Vol] 8.6 mg/dL Normal 8.5-10.1 [facility] Comment on above: Performed By: #### C MP ####[facility] Bxvnhicnbp[address] [place], [place] [address]Dr. Airam Tripathi Chloride [Moles/Vol] 95 mmol/L Critically low 98-107 [facility] Comment on above: Performed By: #### C MP ####[facility] Yhmupdurjs[address] [place], [place] [address]Dr. Airam Tripathi CO2 [Moles/Vol] 27.8 mmol/L Normal 21.0-32.0 [facility] Comment on above: Performed By: #### C MP ####[facility] Hbithiqitm101[address] [place] [address]Dr. Airam Deuce Creatinine [Mass/Vol] 1.07 mg/dL Critically high 0.55-1.02 [facility] Comment on above: Performed By: #### C MP ####[facility] Kcmnkxjlya68[address] [place] [address]Dr. Airam Deuce EGFR-AF ISRAELI >60 Normal >=60 [facility] Comment on above: Performed By: #### C MP ####[facility] Xkbwtdttkg[address] [place], [place] [address]Dr. Airam Deuce EGFR-NON AF ISRAELI 52 mL/min/1.73m2 Critically low >=60 [facility] Comment on above: Performed By: #### C MP ####[facility] U[address]hjzvf[address] [place], [place] [address]Dr. Airam Deuce Globulin (S) [Mass/Vol] 3.5 g/dL Normal [facility] Comment on above: Performed By: #### C MP ####[facility] Qkjugktgzf032[address] [place], [place] [address]Dr. Airam Deuce Glucose [Mass/Vol] 86 mg/dL Normal 74-106 [facility] Comment on above: Performed By: #### C MP ####[facility] Kqgthbpqiz[address] [place], [place] [address]Dr. Selenaneil Tripathi Potassium [Moles/Vol] 4.7 mmol/L Normal 3.5-5.1 [facility] Comment on above: Performed By: #### C MP ####[facility] Jlufaksnrx6[address] [place], [place] [address]Dr. Airam Tripathi Protein [Mass/Vol] 6.7 g/dL Normal 6.4-8.2 [facility] Comment on above: Performed By: #### C MP ####[facility] Briraqfgwu[address] [place], [place] [address]Dr. Selenaneil Tripathi Sodium [Moles/Vol] 129 mmol/L Critically low 136-145 Th e [facility] Comment on above: Performed By: #### C MP ####[facility] Vohewdvsuk[address] [place], [place] [address]Dr. Airam Tripathi Urea nitrogen [Mass/Vol] 19.0 mg/dL Critically high 7.0-18.0 [facility] Comment on above: Performed By: #### C MP ####[facility] Murdpzceul[address] [place], [place] [address]Dr. Airam Tripathi Urea nitrogen/Creatinine [Mass ratio] 17.8 mg/mg Normal [facility] Comment on above: Performed By: #### C MP ####[facility] Pcx[address]hp[address] [place], [place] [address]Dr. Airam Tripathi PROF CHEM 8 (BAS METB)on Anion gap [Moles/Vol] 9.0 mmol/L Normal [facility] Comment on above: Performed By: #### B QUALITY ASSURANCE CLERK, BMP ####[facility] Geinm[address]thf[address] [place], [place] [address]Dr. Airam Tripathi Calcium [Mass/Vol] 8.5 mg/dL Normal 8.5-10.1 [facility] Comment on above: Performed By: #### B QUALITY ASSURANCE CLERK, BMP ####[facility] Cxhyxnhghd[address] [place], [place] [address]Dr. Airam Tripathi Chloride [Moles/Vol] 93 mmol/L Critically low 98-107 [facility] Comment on above: Performed By: #### B QUALITY ASSURANCE CLERK, BMP ####[facility] Dleof[address]zot[address] [place], [place] [address]Dr. Airam Tripathi CO2 [Moles/Vol] 28.1 mmol/L Normal 21.0-32.0 [facility] Comment on above: Performed By: #### B QUALITY ASSURANCE CLERK, BMP ####[facility] V[address]vnz[address] [place], [place] [address]Dr. Airam Tripathi Creatinine [Mass/Vol] 1.17 mg/dL Critically high 0.55-1.02 [facility] Comment on above: Performed By: #### B QUALITY ASSURANCE CLERK, BMP ####[facility] [address]pa[address] [place] [id number]. Airam Tripathi EGFR-AF ISRAELI 57 mL/min/1.73m2 Critically low >=60 [facility] Comment on above: Performed By: #### B QUALITY ASSURANCE CLERK, BMP ####[facility] F[address]vofrzz[address] [place], [place] [address]Dr. Airam Tripathi EGFR-NON AF ISRAELI 47 mL/min/1.73m2 Critically low >=60 [facility] Comment on above: Performed By: #### B QUALITY ASSURANCE CLERK, BMP ####[facility] Cfwegmrstw[address] [place], [place] [address]Dr. Airam Tripathi Glucose [Mass/Vol] 107 mg/dL Critically high 74-106 [facility] Comment on above: Performed By: #### B QUALITY ASSURANCE CLERK, BMP ####[facility] U[address] [place], [place] [address]Dr. Airam Tripathi Potassium [Moles/Vol] 4.1 mmol/L Normal 3.5-5.1 [facility] Comment on above: Performed By: #### B QUALITY ASSURANCE CLERK, BMP ####[facility] Zzgkqvvunk[address] [place] [address]Dr. Airam Tripathi Sodium [Moles/Vol] 126 mmol/L Critically low 136-145 Th [facility] Comment on above: Performed By: #### B QUALITY ASSURANCE CLERK, BMP ####[facility] Ymxqooviss[address] [place], [place] [address]Dr. Selenaneil Deuce Urea nitrogen [Mass/Vol] 20.0 mg/dL Critically high 7.0-18.0 [facility] Comment on above: Performed By: #### B QUALITY ASSURANCE CLERK, BMP ####[facility] Bwlbeescdo32[address] [place] [address]Dr. Airam Tripathi Urea nitrogen/Creatinine [Mass ratio] 17.1 mg/mg Normal [facility] Comment on above: Performed By: #### B QUALITY ASSURANCE CLERK, BMP ####[facility] T[address] [place], [place] [address]Dr. Airam Tripathi XR CHEST 1 Von 11-03-2022 XR CHEST 1 V Normal [facility] Activated partial thrombopla stin time (aPTT) in platelet poor plasma by coagulation aOrdered By: Favian Helm on 10-28-2022 aPTT Coag (PPP) [Time] 31.7 s 25.1-36.5 [facility] Alanine aminotransferase [En zymatic activity/volume] in Serum or PlasmaOrdered By: Favian Helm on 10-28-2022 ALT [Catalytic activity/Vol] 14 U/L 7-[address] [facility] Albumin [Mass/volume] in Ser um or Plasma by Bromocresol green (BCG) dye binding methoOrdered By: Favian Helm on 10-28-2022 Albumin BCG dye [Mass/Vol] 3.6 g/dL 3.5-5.[address] [facility] Alkaline phosphatase [Enzyma tic activity/volume] in Serum or PlasmaOrdered By: Favian Helm on 10-28-2022 ALP [Catalytic activity/Vol] 84 U/L 34-[address] [facility] Aspartate aminotransferase [ Enzymatic activity/volume] in Serum or PlasmaOrdered By: Favian Helm on 10-28-2022 AST [Catalytic activity/Vol] 21 U/L 13-[address] [facility] B-Type Natriuretic Peptideon 10-28-2022 Natriuretic peptide B (Bld) [Mass/Vol] 551.0 pg/mL High 5-[address] [facility] Comment on above: Result Comment: PERF ORMED BY: [place] [address] PATHOLOGIST DOOR FRAME BUILDER TANNER GAVIN M.D. Performed By: #### V [id number], MG, BMP, JOSE, FE and TIBC, RETIC #### [facility] [address] Basophils Auto (Bld) [#/Vol] Ordered By: Favian Helm on 10-28-2022 Basophils (Bld) [#/Vol] 0.0 10*3/uL 0.0-0.[address] [facility] Basophils/100 WBC Auto (Bld) Ordered By: Favian Helm on 10-28-2022 Basophils/100 WBC (Bld) 0.4 % . [facility] Bilirubin.total [Mass/volume ] in Serum or PlasmaOrdered By: Favian Helm on 10-28-2022 Bilirubin [Mass/Vol] 0.3 mg/dL 0.3-1.[address] [facility] [address] head/brain wo conon 10-28 CT head/brain wo con [facility] [place] [address] [place] [address] CT Scan Report Signed Patient: Mabel Moser MR#: [id number] : 1960 Acct:[id number] Age/Sex: 62 / F ADM Date: 10/28/22 Loc: ER Room: Type: [facility] ER Attending Dr: Copies to: Favian [...] Baljinder Ball M.D.10/28/2022 7:46 PM Dictation Location: [place] [address] Transcribed By: [facility] 10/28/221945 Dictated By: Baljinder Ball DO 10/28/221934 Signed By: 10/28/221945 Normal [facility] Calcium [Mass/volume] in Ser um or PlasmaOrdered By: Favian Helm on 10-28-2022 Calcium [Mass/Vol] 8.2 mg/dL 8.6-10.3 [facility] Carbon dioxide, total [Moles /volume] in Serum or PlasmaOrdered By: Favian Helm on 10-28-2022 CO2 [Moles/Vol] 25.7 mmol/L 21.0-31.0 [facility] Chloride [Moles/volume] in S andrea or PlasmaOrdered By: Favian Helm on 10-28-2022 Chloride [Moles/Vol] 98 mmol/L 98-107 [facility] Complete Blood Count Auto Di ffon 10-28-2022 Basophils (Bld) [#/Vol] 0.0 10*3/uL Normal 0.0-0.[address] [facility] Comment on above: Result Comment: PERF ORMED BY: [place] [address] PATHOLOGIST DOOR FRAME BUILDER TANNER GAVIN M.D. Performed By: #### V [id number], MG, BMP, JOSE, FE and TIBC, RETIC #### [address] Basophils/100 WBC (Bld) 0.4 % Normal . [facility] Comment on above: Performed By: #### V [id number], MG, BMP, JOSE, FE and TIBC, RETIC #### [facility] [address] [place] [address] Eosinophils (Bld) [#/Vol] 0.1 10*3/uL Normal 0.0-0.[address] [facility] Comment on above: Performed By: #### V [id number], MG, BMP, JOSE, FE and TIBC, RETIC #### [facility] [address] [place] [address] Eosinophils/100 WBC (Bld) 1.0 % Normal . [facility] Comment on above: Performed By: #### V [id number], MG, BMP, JOSE, FE and TIBC, RETIC #### [address] Erythrocyte distribution width (RBC) [Ratio] 16.5 % High 11.9-15.[address] [facility] Comment on above: Performed By: #### V [id number], MG, BMP, JOSE, FE and TIBC, RETIC #### [address] Hematocrit (Bld) [Volume fraction] 29.9 % Low 34.0-46.[address] [facility] Comment on above: Performed By: #### V [id number], MG, BMP, JOSE, FE and TIBC, RETIC #### [address] Hemoglobin (Bld) [Mass/Vol] 9.6 g/dL Low 11.8-15.[address] [facility] Comment on above: Performed By: #### V [id number], MG, BMP, JOSE, FE and TIBC, RETIC #### [address] Lymphocytes (Bld) [#/Vol] 0.8 10*3/uL Low 1.00-4.[address] [facility] Comment on above: Performed By: #### V [id number], MG, BMP, JOSE, FE and TIBC, RETIC #### [address] Lymphocytes/100 WBC (Bld) 12.8 % Normal . [facility] Comment on above: Performed By: #### V [id number], MG, BMP, JOSE, FE and TIBC, RETIC #### [address] MCH (RBC) [Entitic mass] 28.3 pg Normal 24.7-34.[address] [facility] Comment on above: Performed By: #### V [id number], MG, BMP, JOSE, FE and TIBC, RETIC #### [address] MCV (RBC) [Entitic vol] 88.3 fL Normal 80-[address] [facility] Comment on above: Performed By: #### V [id number], MG, BMP, JOSE, FE and TIBC, RETIC #### [address] Mean Corpuscular HGB Conc 32.0 g/dL Normal 32.0-35.[address] [facility] Comment on above: Performed By: #### V [id number], MG, BMP, JOSE, FE and TIBC, RETIC #### [facility] [address] Monocytes (Bld) [#/Vol] 0.2 10*3/uL Normal 0.0-0.[address] [facility] Comment on above: Performed By: #### V [id number], MG, BMP, JOSE, FE and TIBC, RETIC #### [address] Monocytes/100 WBC (Bld) 17.29 % Normal 0.00-20.[address] [facility] Comment on above: Performed By: #### V [id number], MG, BMP, JOSE, FE and TIBC, RETIC #### [address] Monocytes/100 WBC (Bld) 2.5 % Normal . [facility] Comment on above: Performed By: #### V [id number], MG, BMP, JOSE, FE and TIBC, RETIC #### [address] Neutrophils (Bld) [#/Vol] 5.5 10*3/uL Normal 1.8-7.[address] [facility] Comment on above: Performed By: #### V [id number], MG, BMP, JOSE, FE and TIBC, RETIC #### [place] [address] [place] Neutrophils/100 WBC (Bld) 83.3 % Normal . [facility] Comment on above: Performed By: #### V [id number], MG, BMP, JOSE, FE and TIBC, RETIC #### [place] [address] [place] NRBC% 0.0 /100{WBC} Normal 0-0.[address] [facility] Comment on above: Performed By: #### V [id number], MG, BMP, JOSE, FE and TIBC, RETIC #### [address] Platelet mean volume (Bld) [Entitic vol] 7.3 fL Normal 6.3-10.[address] [facility] Comment on above: Performed By: #### V [id number], MG, BMP, JOSE, FE and TIBC, RETIC #### [address] Platelets (Bld) [#/Vol] 260 10*3/uL Normal 150-[address] [facility] Comment on above: Performed By: #### V [id number], MG, BMP, JOSE, FE and TIBC, RETIC #### [address] RBC (Bld) [#/Vol] 3.38 10*6/uL Low 3.60-5.00 [facility] Comment on above: Performed By: #### V [id number], MG, BMP, JOSE, FE and TIBC, RETIC #### [address] WBC (Bld) [#/Vol] 6.6 10*3/uL Normal 3.8-11.6 [facility] Comment on above: Performed By: #### V [id number], MG, BMP, JOSE, FE and TIBC, RETIC #### [address] Comprehensive Metabolic Pane elena 10-28-2022 Albumin [Mass/Vol] 3.6 g/dL Normal 3.5-5.7 [facility] Comment on above: Performed By: #### V [id number], MG, BMP, JOSE, FE and TIBC, RETIC #### [address] Albumin/Globulin [Mass ratio] 1.6 {ratio} Normal [facility] Comment on above: Performed By: #### V [id number], MG, BMP, JOSE, FE and TIBC, RETIC #### [address] [place] [address] [place] ALP [Catalytic activity/Vol] 84 U/L Normal 34-[address] [facility] Comment on above: Performed By: #### V [id number], MG, BMP, JOSE, FE and TIBC, RETIC #### [facility] [address] ALT [Catalytic activity/Vol] 14 U/L Normal 7-[address] [facility] Comment on above: Performed By: #### V [id number], MG, BMP, JOSE, FE and TIBC, RETIC #### [facility] [address] [place] [address] Anion gap [Moles/Vol] 10.0 mmol/L Normal 6.0-15.0 [facility] Comment on above: Performed By: #### V [id number], MG, BMP, JOSE, FE and TIBC, RETIC #### [facility] [address] [place] [address] AST [Catalytic activity/Vol] 21 U/L Normal 13-[address] [facility] Comment on above: Performed By: #### V [id number], MG, BMP, JOSE, FE and TIBC, RETIC #### [address] Bilirubin [Mass/Vol] 0.3 mg/dL Normal 0.3-1.0 [facility] Comment on above: Performed By: #### V [id number], MG, BMP, JOSE, FE and TIBC, RETIC #### [address] Calcium [Mass/Vol] 8.2 mg/dL Low 8.6-10.3 [facility] Comment on above: Performed By: #### V [id number], MG, BMP, JOSE, FE and TIBC, RETIC #### [address] Chloride [Moles/Vol] 98 mmol/L Normal 98-107 [facility] Comment on above: Performed By: #### V [id number], MG, BMP, JOSE, FE and TIBC, RETIC #### [facility] [address] CO2 [Moles/Vol] 25.7 mmol/L Normal 21.0-31.0 [facility] Comment on above: Performed By: #### V [id number], MG, BMP, JOSE, FE and TIBC, RETIC #### [facility] [address] Creatinine [Mass/Vol] 1.23 mg/dL High 0.60-1.20 [facility] Comment on above: Performed By: #### V [id number], MG, BMP, JOSE, FE and TIBC, RETIC #### [facility] [address] Creatinine Clr Calc Pharmacy 48.79 [facility] Comment on above: Performed By: #### V [id number], MG, BMP, JOSE, FE and TIBC, RETIC #### [address] GFR/1.73 sq M.predicted MDRD (S/P/Bld) [Vol rate/Area] 50.309 mL/min/{1.73_m2} [facility] Comment on above: Performed By: #### V [id number], MG, BMP, JOSE, FE and TIBC, RETIC #### [address] Globulin (S) [Mass/Vol] 2.3 g/dL [facility] Comment on above: Performed By: #### V [id number], MG, BMP, JOSE, FE and TIBC, RETIC #### [address] Glucose [Mass/Vol] 98 mg/dL Normal 70-100 [facility] Comment on above: Result Comment: [place] Glucose Reference Range is dependent on time and content of last meal. Glucose of more than 200 mg/dL in a nonstressed, ambulatory subject supports the diagnosis of Diabetes Mellitus. ADA recommended reference range Performed By: #### V [id number], MG, BMP, JOSE, FE and TIBC, RETIC #### [facility] [address] Potassium [Moles/Vol] 4.7 mmol/L Normal 3.5-5.1 [facility] Comment on above: Performed By: #### V [id number], MG, BMP, JOSE, FE and TIBC, RETIC #### [address] Protein [Mass/Vol] 5.9 g/dL Low 6.4-8.9 [facility] Comment on above: Performed By: #### V [id number], MG, BMP, JOSE, FE and TIBC, RETIC #### [address] Sodium [Moles/Vol] 129 mmol/L Low 136-145 [facility] Comment on above: Performed By: #### V [id number], MG, BMP, JOSE, FE and TIBC, RETIC #### [address] Urea nitrogen [Mass/Vol] 36 mg/dL High 7-[address] [facility] Comment on above: Performed By: #### V [id number], MG, BMP, JOSE, FE and TIBC, RETIC #### [place] [address] [place] Creatine Kinaseon 10-28-2022 CK [Catalytic activity/Vol] 45 U/L Normal [facility] Comment on above: Performed By: #### V [id number], MG, BMP, JOSE, FE and TIBC, RETIC #### [facility] [address] [place] [address] [place] Creatine kinase [Enzymatic a ctivity/volume] in Serum or PlasmaOrdered By: Favian Helm on 10-28-2022 CK [Catalytic activity/Vol] 45 U/L [facility] Creatinine [Mass/volume] in Serum or PlasmaOrdered By: Favian Helm on 10-28-2022 Creatinine [Mass/Vol] 1.23 mg/dL 0.60-1.20 [facility] ECG 12 lead ECGon 10-28-2022 ECG 12 lead ECG [facility] [place] [address] Electrocardiograph Report Signed Patient: Mabel Moser MR#: [id number] : 1960 Acct:[id number] Age/Sex: 62 / F ADM Date: 10/28/22 Loc: ER Room: Type: [facility] ER Attending Dr: Ordering Provider: Favian [...] normal variant Confirmed by Chris MAURO DO ([id number]) on 10/28/2022 8:40:44 PM Referred By: Electronically Signed By:Chris MAURO DO Transcribed By: MUS Signed By Chris Mauro DO 0 10/28/222039 Normal [facility] Eosinophils Auto (Bld) [#/Vo l]Ordered By: Favian Helm on 10-28-2022 Eosinophils (Bld) [#/Vol] 0.1 10*3/uL 0.0-0.[address] [facility] Eosinophils/100 WBC Auto (Bl d)Ordered By: Favian Helm on 10-28-2022 Eosinophils/100 WBC (Bld) 1.0 % . [facility] Erythrocyte distribution wid th Auto (RBC) [Ratio]Ordered By: Favian Helm on 10-28-2022 Erythrocyte distribution width (RBC) [Ratio] 16.5 % 11.9-15.[address] [facility] Globulin Calc (S) [Mass/Vol] Ordered By: Favian Helm on 10-28-2022 Globulin (S) [Mass/Vol] 2.3 g/dL [facility] Glucose [Mass/volume] in Ser um or PlasmaOrdered By: Favian Helm on 10-28-2022 Glucose [Mass/Vol] 98 mg/dL 70-100 [facility] Comment on above: ADA recommended refe rence rangeRandom Glucose Reference Range is dependent on time and content of last meal. Glucose of more than 200 mg/dL in a nonstressed, ambulatory subject supports the diagnosis of Diabetes Mellitus. Hematocrit Auto (Bld) [Volum e fraction]Ordered By: Favian Helm on 10-28-2022 Hematocrit (Bld) [Volume fraction] 29.9 % 34.0-46.[address] [facility] Hemoglobin [Mass/volume] in BloodOrdered By: Favian Helm on 10-28-2022 Hemoglobin (Bld) [Mass/Vol] 9.6 g/dL 11.8-15.[address] [facility] Laboratory - CoagulationOrde red By: Favian Helm on 10-28-2022 PT Coag (PPP) [Time] 11.0 s 9.0-12.9 [facility] Leukocytes [#/volume] correc nicol for nucleated erythrocytes in Blood by Automated counOrdered By: Favian Helm on 10-28-2022 WBC corrected for nucl RBC Auto (Bld) [#/Vol] 6.6 10*3/uL 3.8-11.[address] [facility] Lymphocytes Auto (Bld) [#/Vo l]Ordered By: Favian Helm on 10-28-2022 Lymphocytes (Bld) [#/Vol] 0.8 10*3/uL 1.00-4.[address] [facility] Lymphocytes/100 WBC Auto (Bl d)Ordered By: Favian Helm on 10-28-2022 Lymphocytes/100 WBC (Bld) 12.8 % . [facility] MCH Auto (RBC) [Entitic mass ]Ordered By: Favian Helm on 10-28-2022 MCH (RBC) [Entitic mass] 28.3 pg 24.7-34.[address] [facility] MCHC Auto (RBC) [Mass/Vol]Or dered By: Favian Helm on 10-28-2022 MCHC (RBC) [Mass/Vol] 32.0 g/dL 32.0-35.0 [facility] MCV Auto (RBC) [Entitic vol] Ordered By: Favian Helm on 10-28-2022 MCV (RBC) [Entitic vol] 88.3 fL 80-[address] [facility] Magnesiumon 10-28-2022 Magnesium [Mass/Vol] 1.9 mg/dL Normal 1.9-2.7 [facility] Comment on above: Result Comment: PERF ORMED BY: [facility] [address] [place] [address] PATHOLOGIST DOOR FRAME BUILDER TANNER GAVIN M.D. Performed By: #### V [id number], MG, BMP, JOSE, FE and TIBC, RETIC #### [facility] [address] Magnesium [Mass/volume] in S andrea or PlasmaOrdered By: Favian Helm on 10-28-2022 Magnesium [Mass/Vol] 1.9 mg/dL 1.9-2.7 [facility] Monocyte distribution width [Entitic volume] in Blood by AutomatedOrdered By: Favian Helm on 10-28-2022 Monocyte distribution width Auto (Bld) [Entitic vol] 17.29 % 0.00-20.[address] [facility] Monocytes Auto (Bld) [#/Vol] Ordered By: Favian Helm on 10-28-2022 Monocytes (Bld) [#/Vol] 0.2 10*3/uL 0.0-0.[address] [facility] Monocytes/100 WBC Auto (Bld) Ordered By: Favian Helm on 10-28-2022 Monocytes/100 WBC (Bld) 2.5 % . [facility] Natriuretic peptide B [Mass/ Vol]Ordered By: Favian Helm on 10-28-2022 Natriuretic peptide B (Bld) [Mass/Vol] 551.0 pg/mL 5-[address] [facility] Neutrophils Auto (Bld) [#/Vo l]Ordered By: Favian Helm on 10-28-2022 Neutrophils (Bld) [#/Vol] 5.5 10*3/uL 1.8-7.[address] [facility] Neutrophils/100 WBC Auto (Bl d)Ordered By: Favian Helm on 10-28-2022 Neutrophils/100 WBC (Bld) 83.3 % . [facility] No Panel InformationOrdered By: Favian Helm on 10-28-2022 Estimated GFR (CKD-EPI) 50.309 mL/Min [facility] Creatinine Clearance (Chem 48.[address] [facility] Nucleated erythrocytes [Pres ence] in Blood by Automated countOrdered By: Favian Helm on 10-28-2022 Nucleated RBC Auto Ql (Bld) 0.0 /100{WBC} 0-0.[address] [facility] Partial Thromboplastin Timeo n 10-28-2022 aPTT Coag (Bld) [Time] 31.7 s Normal 25.1-36.5 [facility] Comment on above: Result Comment: PERF ORMED BY: [place] [address] PATHOLOGIST DOOR [employer] TANNER GAVIN M.D. Performed By: #### V [id number], MG, BMP, JOSE, FE and TIBC, RETIC #### [facility] [address] [place] [address] Platelet mean volume Auto (B ld) [Entitic vol]Ordered By: Favian Helm on 10-28-2022 Platelet mean volume (Bld) [Entitic vol] 7.3 fL 6.3-10.[address] [facility] Platelet poor plasma interna tional normalized ratio (INR) by coagulation assay (relatOrdered By: Favian Helm on 10-28-2022 INR Coag (PPP) [Relative time] 1.0 {INR} [facility] Comment on above: INR Therapeutic Rang [...] (Bld) [#/Vol] 260 10*3/uL 150-[address] [facility] Potassium [Moles/volume] in Serum or PlasmaOrdered By: Favian Helm on 10-28-2022 Potassium [Moles/Vol] 4.7 mmol/L 3.5-5.1 [facility] Protein [Mass/volume] in Ser um or PlasmaOrdered By: Favian Helm on 10-28-2022 Protein [Mass/Vol] 5.9 g/dL 6.4-8.9 [facility] Prothrombin Time INRon 10-28 INR Coag (PPP) [Relative time] 1.0 {INR} Normal [facility] Comment on above: Result Comment: INR [...] 3 - 4.5 Performed By: #### V [id number], MG, BMP, JOSE, FE and TIBC, RETIC #### [facility] [address] PT Coag (PPP) [Time] 11.0 s Normal 9.0-12.9 [facility] Comment on above: Performed By: #### V [id number], MG, BMP, JOSE, FE and TIBC, RETIC #### [facility] [address] [place] [address] RBC Auto (Bld) [#/Vol]Ordere d By: Favian Helm on 10-28-2022 RBC (Bld) [#/Vol] 3.38 10*6/uL 3.60-5.00 [facility] Serum or plasma albumin/glob ulin mass ratioOrdered By: Favian Helm on 10-28-2022 Albumin/Globulin [Mass ratio] 1.6 {ratio} [facility] Serum or plasma anion gap de terminationOrdered By: Favian Helm on 10-28-2022 Anion gap [Moles/Vol] 10.0 mmol/L 6.0-15.0 [facility] Sodium [Moles/volume] in Ser um or PlasmaOrdered By: Favian Helm on 10-28-2022 Sodium [Moles/Vol] 129 mmol/L 136-145 [facility] Troponin I High Sensitivityo n 10-28-2022 Troponin I High Sensitivity 5.8 pg/mL Normal 0.0-15.[address] [facility] Comment on above: Result Comment: PERF ORMED BY: [place] [address] PATHOLOGIST DOOR [employer] TANNER GAVIN M.D. Performed By: #### V [id number], MG, BMP, JOSE, FE and TIBC, RETIC #### [address] Troponin I.cardiac [Mass/vol ume] in Serum or Plasma by Detection limit <= 0.01 ng/Ordered By: Favian Helm on 10-28-2022 Troponin I.cardiac DL <= 0.01 ng/mL [Mass/Vol] 5.8 pg/mL 0.0-15.[address] [facility] Urea nitrogen [Mass/volume] in Serum or PlasmaOrdered By: Favian Helm on 10-28-2022 Urea nitrogen [Mass/Vol] 36 mg/dL 7-[address] [facility] WBC Auto (Bld) [#/Vol]Ordere d By: Favian Helm on 10-28-2022 WBC (Bld) [#/Vol] 6.6 10*3/uL 3.8-11.6 [facility] XR chest 2V*on 10-28-2022 XR chest 2V* [facility] [place] [address] [place] [address] XRay Report Signed Patient: Mabel Moser MR#: [id number] : 1960 Acct:[id number] Age/Sex: 62 / F ADM Date: 10/28/22 Loc: ER Room: Type: [facility] ER Attending Dr: Copies to: Favian Helm PA-C Ordering Provider: Favian Helm PA-C Date of Service: 10/28/22 XR/XR chest 2V*: Shortness of Breath/Dyspnea Plain film chest 2 view HISTORY: Fluid overload. Shortness of breath. Headache. COMPARISON: 08/31/2018 FINDINGS: SUPPORT DEVICES: None POSTSURGICAL CHANGES: Right Pqcjcn-p-Nlxb intact with tip overlying the distal SVC. HEART: Within normal limits PULMONARY RAI: Within normal limits MEDIASTINUM: Unremarkable LUNGS AND PLEURA: No acute lung process, pleural effusion or pneumothorax identified. BONY STRUCTURES: Intact ADDITIONAL FINDINGS None XR/XR chest 2V* IMPRESSION: No acute process. Impression dictated by: Baljinder Ball M.D.10/28/2022 7:50 PM Dictation Location: [place] [address] Transcribed By: [facility] 10/28/221949 Dictated By: Baljinder Ball DO 10/28/221945 Signed By: 10/28/221949 [facility] BNPon 10-26-2022 Natriuretic peptide B (Bld) [Mass/Vol] 2657.0 pg/mL Critically high <=900.0 [facility] Comment on above: Performed By: #### C MP, BNP ####[facility] [address] [place], [place] [address]Dr. Selenaneil Tripathi CBC AUTO DIFFon 10-26-2022 BASO # 0.0 103/ul Normal 0.0-0.1 [facility] Comment on above: Performed By: #### C BC ####[facility] [address] [place], [place] [address]Dr. Airam Tripathi Basophils/100 WBC (Bld) 0.5 % Normal 0.2-2.0 [facility] Comment on above: Performed By: #### C BC ####[facility] Ogxv[address]xf[address] [place], [place] [address]Dr. Airam Tripathi EO # 0.3 103/ul Normal 0.0-0.7 [facility] Comment on above: Performed By: #### C BC ####[facility] Rnq[address]ile[address] [place], [place] [address]Dr. Airam Tripathi Eosinophils/100 WBC (Bld) 4.8 % Normal 0.9-7.0 [facility] Comment on above: Performed By: #### C BC ####[facility] [address] [place], [place] [address]Dr. Airam Tripathi Erythrocyte distribution width (RBC) [Ratio] 15.5 % Critically high 11.0-15.0 [facility] Comment on above: Performed By: #### C BC ####[facility] Bsz[address] [place], [place] [address]Dr. Airam Tripathi Hematocrit (Bld) [Volume fraction] 27.7 % Critically low 36.0-48.0 [facility] Comment on above: Performed By: #### C BC ####[facility] [address] [place], [place] [address]Dr. Airam Tripathi Hemoglobin (Bld) [Mass/Vol] 8.8 g/dL Critically low 12.0-16.0 [facility] Comment on above: Performed By: #### C BC ####[facility] N[address] [place], [place] [address]Dr. Airam Tripathi IG # 0.03 10e3/ul Normal 0.00-0.03 [facility] Comment on above: Performed By: #### C BC ####[facility] I[address] [place], [place] [address]Dr. Airam Tripathi IG % 0.5 % Normal 0.0-0.5 [facility] Comment on above: Performed By: #### C BC ####[facility] Z[address] [place], [place] [address]Dr. Airam Tripathi LYMPH # 1.6 103/ul Normal 1.2-3.8 [facility] Comment on above: Performed By: #### C BC ####[facility] I[address] [place], [place] [address]Dr. Airam Tripathi Lymphocytes/100 WBC (Bld) 25.5 % Normal 20.5-60.0 [facility] Comment on above: Performed By: #### C BC ####[facility] [address] [place], [place] [address]Dr. Airam Tripathi MANUAL DIFF REQ NO Normal [facility] Comment on above: Performed By: #### C BC ####[facility] Ilherw[address]fyz[address] [place], [place] [address]Dr. Airam Tripathi MCH (RBC) [Entitic mass] 29.0 pg Normal 26.7-34.0 [facility] Comment on above: Performed By: #### C BC ####[facility] [address] [place] [address]Dr. Airam Tripathi MCHC (RBC) [Mass/Vol] 31.8 g/dL Normal 29.9-35.2 [facility] Comment on above: Performed By: #### C BC ####[facility] [address] [place] [address]Dr. Airam Tripathi MCV (RBC) [Entitic vol] 91.4 fL Normal 81.0-99.0 [facility] Comment on above: Performed By: #### C BC ####[facility] [address]ps[address] [place] [address]Dr. Airam Deuce MONO # 0.5 103/ul Normal 0.3-0.8 [facility] Comment on above: Performed By: #### C BC ####[facility] [address]uf[address] [place] [address]Dr. Airam Tripathi Monocytes/100 WBC (Bld) 7.5 % Normal 1.7-12.0 [facility] Comment on above: Performed By: #### C BC ####[facility] [address] [place] [address]Dr. Airam Tripathi NEUT # 3.9 103/ul Normal 1.4-6.5 [facility] Comment on above: Performed By: #### C BC ####[facility] [address]wl[address]40 [place] [address]Dr. Airam Deuce Neutrophils/100 WBC (Bld) 61.2 % Normal 43.0-75.0 [facility] Comment on above: Performed By: #### C BC ####[facility] Dp[address]zef[address] [place] [address]Dr. Airam Deuce Platelet mean volume (Bld) [Entitic vol] 9.4 fL Critically low 9.5-13.5 [facility] Comment on above: Performed By: #### C BC ####[facility] [address] [place] [phone]. Airam Deuce PLT 247 103/ul Normal 150-450 [facility] Comment on above: Performed By: #### C BC ####[facility] Fr[address]ls[address] [place] [address]Dr. Airam Tripathi RBC 3.03 106/ul Critically low 4.20-5.40 [facility] Comment on above: Performed By: #### C BC ####[facility] Vyalaphisx[address] [place] [address]Dr. Airam Tripathi WBC 6.4 103/ul Normal 4.0-11.0 [facility] Comment on above: Performed By: #### C BC ####[facility] [address] [place], [place] [address]Dr. Airam Tripathi PROF 14(COMP METB)on 023 Albumin [Mass/Vol] 2.5 g/dL Critically low 3.4-5.0 [facility] Comment on above: Performed By: #### C MP, BNP ####[facility] Nowvgch[address]ml[address] [place], [place] [address]Dr. Airam Tripathi Albumin/Globulin [Mass ratio] 0.9 {ratio} Normal [facility] Comment on above: Performed By: #### C MP, BNP ####[facility] Iug[address]xu[address] [place], [place] [address]Dr. Airam Tripathi ALP [Catalytic activity/Vol] 108 U/L Normal 46-116 [facility] Comment on above: Performed By: #### C MP, BNP ####[facility] Yyj[address]creing[address] [place], [place] [address]Dr. Airam Tripathi ALT [Catalytic activity/Vol] 20 U/L Normal 14-59 [facility] Comment on above: Performed By: #### C MP, BNP ####[facility] Jdcwtft[address] [place], [place] [address]Dr. Airam Tripathi Anion gap [Moles/Vol] 10.4 mmol/L Normal [facility] Comment on above: Performed By: #### C MP, BNP ####[facility] Pjvajlabmw8[address] [place] [address]Dr. Airam Tripathi AST [Catalytic activity/Vol] 20 U/L Normal 15-37 [facility] Comment on above: Performed By: #### C MP, BNP ####[facility] W[address]qbs[address]kh[address] [place], [place] [address]Dr. Airam Tripathi Bilirubin [Mass/Vol] 0.2 mg/dL Normal 0.2-1.0 [facility] Comment on above: Performed By: #### C MP, BNP ####[facility] Xpvvbapfij[address] [place], [place] [address]Dr. Airam Tripathi Calcium [Mass/Vol] 8.0 mg/dL Critically low 8.5-10.1 [facility] Comment on above: Performed By: #### C MP, BNP ####[facility] Pr[address]uq[address] [place], [place] [address]Dr. Airam Tripathi Chloride [Moles/Vol] 100 mmol/L Normal 98-107 [facility] Comment on above: Performed By: #### C MP, BNP ####[facility] Wh[address]ctzcq[address] [place], [place] [address]Dr. Airam Tripathi CO2 [Moles/Vol] 28.6 mmol/L Normal 21.0-32.0 [facility] Comment on above: Performed By: #### C MP, BNP ####[facility] Ygzvjrzzmw[address] [place], [place] [address]Dr. Airam Tripathi Creatinine [Mass/Vol] 1.66 mg/dL Critically high 0.55-1.02 [facility] Comment on above: Performed By: #### C MP, BNP ####[facility] Janjwn[address]nz[address] [place], [place] [address]Dr. Airam Tripathi EGFR-AF ISRAELI 38 mL/min/1.73m2 Critically low >=60 [facility] Comment on above: Performed By: #### C MP, BNP ####[facility] Dynas[address]uz[address] [place], [place] [address]Dr. Airam Tripathi EGFR-NON AF ISRAELI 32 mL/min/1.73m2 Critically low >=60 [facility] Comment on above: Performed By: #### C MP, BNP ####[facility] A[address]wr[address] [place] [address]Dr. Airam Tripathi Globulin (S) [Mass/Vol] 2.8 g/dL Normal [facility] Comment on above: Performed By: #### C MP, BNP ####[facility] F[address]ecj[address] [place], [place] [address]Dr. Airam Tripathi Glucose [Mass/Vol] 102 mg/dL Normal 74-106 [facility] Comment on above: Performed By: #### C MP, BNP ####[facility] Xdavftyvkf[address] [place], [place] [address]Dr. Airam Tripathi Potassium [Moles/Vol] 5.0 mmol/L Normal 3.5-5.1 [facility] Comment on above: Performed By: #### C MP, BNP ####[facility] Qcesc[address]zy[address] [place], [place] [address]Dr. Airam Tripathi Protein [Mass/Vol] 5.3 g/dL Critically low 6.4-8.2 [facility] Comment on above: Performed By: #### C MP, BNP ####[facility] [address]bmtehufv[address] [place], [place] [address]Dr. Airam Tripathi Sodium [Moles/Vol] 134 mmol/L Critically low 136-145 [facility] Comment on above: Performed By: #### C MP, BNP ####[facility] Szevez[address]ali[address] [place], [place] [address]Dr. Airam Tripathi Urea nitrogen [Mass/Vol] 45.0 mg/dL Critically high 7.0-18.0 [facility] Comment on above: Performed By: #### C MP, BNP ####[facility] Jtry[address]fxuu4[address] [place], [place] [address]Dr. Airam Tripathi Urea nitrogen/Creatinine [Mass ratio] 27.1 mg/mg [facility] Comment on above: Performed By: #### C MP, BNP ####[facility] U[address]unydfy[address] [place], [place] [address]Dr. Airam Tripathi BNPon 10-25-2022 Natriuretic peptide B (Bld) [Mass/Vol] 4569.0 pg/mL Critically high <=900.0 [facility] Comment on above: Performed By: #### C MP, BNP ####[facility] Iohubwxucr[address] [place], [place] [address]Dr. Airam Tripathi CBC AUTO DIFFon 10-25-2022 BASO # 0.0 103/ul Normal 0.0-0.1 [facility] Comment on above: Performed By: #### C BC ####[facility] Ibvcxvkw[address] [place], [place] [address]Dr. Airam Tripathi Basophils/100 WBC (Bld) 0.5 % Normal 0.2-2.0 [facility] Comment on above: Performed By: #### C BC ####[facility] R[address]noxnk[address] [place], [place] [address]Dr. Airam Tripathi EO # 0.3 103/ul Normal 0.0-0.7 [facility] Comment on above: Performed By: #### C BC ####[facility] Cesllbovqh[address] [place], [place] [address]Dr. Airam Tripathi Eosinophils/100 WBC (Bld) 5.6 % Normal 0.9-7.0 [facility] Comment on above: Performed By: #### C BC ####[facility] [address]za[address] [place], [place] [address]Dr. Airam Tripathi Erythrocyte distribution width (RBC) [Ratio] 15.7 % Critically high 11.0-15.0 [facility] Comment on above: Performed By: #### C BC ####[facility] [address] [place], [place] [address]Dr. Selenaneil Tripathi Hematocrit (Bld) [Volume fraction] 30.1 % Critically low 36.0-48.0 [facility] Comment on above: Performed By: #### C BC ####[facility] [address] [place], [place] [address]Dr. Airam Tripathi Hemoglobin (Bld) [Mass/Vol] 9.2 g/dL Critically low 12.0-16.0 [facility] Comment on above: Performed By: #### C BC ####[facility] [address] [place] [id number]. Selenaneil Tripathi IG # 0.03 10e3/ul Normal 0.00-0.03 [facility] Comment on above: Performed By: #### C BC ####[facility] Dhspdbypui8798 [place] [address]Dr. Airam Tripathi IG % 0.5 % Normal 0.0-0.5 [facility] Comment on above: Performed By: #### C BC ####[facility] Aspzzakjgy9990 [place] [address]Dr. Selenaneil Tripathi LYMPH # 1.7 103/ul Normal 1.2-3.8 [facility] Comment on above: Performed By: #### C BC ####[facility] Jysocirsld9584 [place] [address]Dr. Airam Tripathi Lymphocytes/100 WBC (Bld) 28.9 % Normal 20.5-60.0 [facility] Comment on above: Performed By: #### C BC ####[facility] [address] [place], [place] [address]Dr. Airam Tripathi MANUAL DIFF REQ NO Normal [facility] Comment on above: Performed By: #### C BC ####[facility] Bebzjemlaf[address] [place] [address]Dr. Selenaneil Tripathi MCH (RBC) [Entitic mass] 28.4 pg Normal 26.7-34.0 [facility] Comment on above: Performed By: #### C BC ####[facility] Iumzwlyxis9627 [place] [address]Dr. Airam Deuce MCHC (RBC) [Mass/Vol] 30.6 g/dL Normal 29.9-35.2 [facility] Comment on above: Performed By: #### C BC ####[facility] Nepoevtkpx6978 [place] [address]Dr. Selenaneil Tripathi MCV (RBC) [Entitic vol] 92.9 fL Normal 81.0-99.0 [facility] Comment on above: Performed By: #### C BC ####[facility] Dnsrbejvpz4082 [place] [address]Dr. Airam Tripathi MONO # 0.5 103/ul Normal 0.3-0.8 [facility] Comment on above: Performed By: #### C BC ####[facility] Xpieycgcrk9275 [place] [phone]. Airam Tripathi Monocytes/100 WBC (Bld) 8.5 % Normal 1.7-12.0 [facility] Comment on above: Performed By: #### C BC ####[facility] Mhztowpblz7146 [place] [phone]. Airam Tripathi NEUT # 3.2 103/ul Normal 1.4-6.5 [facility] Comment on above: Performed By: #### C BC ####[facility] Syeanpwxbz6671 [place] [address]Dr. Airam Tripathi Neutrophils/100 WBC (Bld) 56.0 % Normal 43.0-75.0 [facility] Comment on above: Performed By: #### C BC ####[facility] [address]kjjjxpj1583 [place] [phone]. Airam Tripathi Platelet mean volume (Bld) [Entitic vol] 9.4 fL Critically low 9.5-13.5 [facility] Comment on above: Performed By: #### C BC ####[facility] Tsbwmltvzc2004 [place] [phone]. Airam Tripathi PLT 272 103/ul Normal 150-450 [facility] Comment on above: Performed By: #### C BC ####[facility] Czzaoaystv0365 [place] [phone]. Airam Tripathi RBC 3.24 106/ul Critically low 4.20-5.40 [facility] Comment on above: Performed By: #### C BC ####[facility] [address] [place], [place] [address]Dr. Airam Tripathi WBC 5.8 103/ul Normal 4.0-11.0 [facility] Comment on above: Performed By: #### C BC ####[facility] [address] [place], [place] [address]Dr. Airam Tripathi OSMOLALITYon 10-25-2022 Osmolality [Osmolality] 282 mosm/kg Normal 275-295 [facility] Comment on above: Performed By: #### O SMO ####[facility] [address] [place], [place] [address]Dr. Airam Tripathi PROF 14(COMP METB)on 023 Albumin [Mass/Vol] 2.7 g/dL Critically low 3.4-5.0 [facility] Comment on above: Performed By: #### C MP, BNP ####[facility] Gr[address] [place], [place] [address]Dr. Airam Tripathi Albumin/Globulin [Mass ratio] 0.9 {ratio} Normal [facility] Comment on above: Performed By: #### C MP, BNP ####[facility] [address]coc[address]zs[address] [place], [place] [address]Dr. Airam Tripathi ALP [Catalytic activity/Vol] 122 U/L Critically high 46-116 [facility] Comment on above: Performed By: #### C MP, BNP ####[facility] X[address] [place], [place] [address]Dr. Airam Tripathi ALT [Catalytic activity/Vol] 23 U/L Normal 14-59 [facility] Comment on above: Performed By: #### C MP, BNP ####[facility] [address]qr[address]tue[address] [place], [place] [address]Dr. Airam Tripathi Anion gap [Moles/Vol] 10.5 mmol/L Normal [facility] Comment on above: Performed By: #### C MP, BNP ####[facility] Iv[address]asich[address] [place], [place] [address]Dr. Airam Tripathi AST [Catalytic activity/Vol] 22 U/L Normal 15-37 [facility] Comment on above: Performed By: #### C MP, BNP ####[facility] [address] [place], [place] [address]Dr. Airam Tripathi Bilirubin [Mass/Vol] 0.2 mg/dL Normal 0.2-1.0 [facility] Comment on above: Performed By: #### C MP, BNP ####[facility] Xjwazxbvvt0595 [place] [address]Dr. Airam Tripathi Calcium [Mass/Vol] 8.3 mg/dL Critically low 8.5-10.1 [facility] Comment on above: Performed By: #### C MP, BNP ####[facility] Rijdldmglj0022 [place] [address]Dr. Airam Tripathi Chloride [Moles/Vol] 102 mmol/L Normal 98-107 [facility] Comment on above: Performed By: #### C MP, BNP ####[facility] Qpmeruxfkm5[address] [place], [place] [address]Dr. Airam Tripathi CO2 [Moles/Vol] 29.7 mmol/L Normal 21.0-32.0 [facility] Comment on above: Performed By: #### C MP, BNP ####[facility] Rtypbpyvxs0734[address] [place], [place] [address]Dr. Airam Tripathi Creatinine [Mass/Vol] 1.31 mg/dL Critically high 0.55-1.02 [facility] Comment on above: Performed By: #### C MP, BNP ####[facility] Bzbwggnruv65[address] [place], [place] [address]Dr. Airam Tripathi EGFR-AF ISRAELI 50 mL/min/1.73m2 Critically low >=60 [facility] Comment on above: Performed By: #### C MP, BNP ####[facility] Dwxcdhujxy7530[address] [place], [place] [address]Dr. Airam Tripathi EGFR-NON AF ISRAELI 41 mL/min/1.73m2 Critically low >=60 [facility] Comment on above: Performed By: #### C MP, BNP ####[facility] Gmejqxhptn[address] [place], [place] [address]Dr. Airam Tripathi Globulin (S) [Mass/Vol] 2.9 g/dL Normal [facility] Comment on above: Performed By: #### C MP, BNP ####[facility] Qugpsszfuj0040[address] [place], [place] [address]Dr. Airam Tripathi Glucose [Mass/Vol] 94 mg/dL Normal 74-106 [facility] Comment on above: Performed By: #### C MP, BNP ####[facility] Swjkzvvoae9[address] [place], [place] [address]Dr. Airam Tripathi Potassium [Moles/Vol] 4.2 mmol/L Normal 3.5-5.1 [facility] Comment on above: Performed By: #### C MP, BNP ####[facility] Nuexxqmedz0174[address] [place], [place] [address]Dr. Airam Tripathi Protein [Mass/Vol] 5.6 g/dL Critically low 6.4-8.2 [facility] Comment on above: Performed By: #### C MP, BNP ####[facility] Ogwtydkfpz3413[address] [place], [place] [address]Dr. Airam Tripathi Sodium [Moles/Vol] 138 mmol/L Normal 136-145 [facility] Comment on above: Performed By: #### C MP, BNP ####[facility] Zypqeqabgj4[address] [place], [place] [address]Dr. Airam Tripathi Urea nitrogen [Mass/Vol] 33.0 mg/dL Critically high 7.0-18.0 [facility] Comment on above: Performed By: #### C MP, BNP ####[facility] Rmthxfocqd12[address] [place], [place] [address]Dr. Airam Tripathi Urea nitrogen/Creatinine [Mass ratio] 25.2 mg/mg Normal [facility] Comment on above: Performed By: #### C MP, BNP ####[facility] Ybklashykr1770[address] [place], [place] [address]Dr. Airam Tripathi BNPon 10-24-2022 Natriuretic peptide B (Bld) [Mass/Vol] 3805.0 pg/mL Critically high <=900.0 [facility] Comment on above: Performed By: #### H STROPN, BNP, CMP ####[facility] Zcemtvqslz[address] [place], [place] [address]Dr. Airam Tripathi CBC AUTO DIFFon 10-24-2022 BASO # 0.0 103/ul Normal 0.0-0.1 [facility] Comment on above: Performed By: #### C BC ####[facility] Jnawqxzbkw76[address] [place] [id number]. Airam Tripathi Basophils/100 WBC (Bld) 0.3 % Normal 0.2-2.0 [facility] Comment on above: Performed By: #### C BC ####[facility] Dfelofvuaf[address] [place], [place] [address]Dr. Airam Tripathi EO # 0.3 103/ul Normal 0.0-0.7 [facility] Comment on above: Performed By: #### C BC ####[facility] Lgwajrtotq9[address] [place], [place] [address]Dr. Airam Tripathi Eosinophils/100 WBC (Bld) 4.2 % Normal 0.9-7.0 [facility] Comment on above: Performed By: #### C BC ####[facility] Mzseannifd[address] [place], [place] [address]Dr. Airam Tripathi Erythrocyte distribution width (RBC) [Ratio] 15.6 % Critically high 11.0-15.0 [facility] Comment on above: Performed By: #### C BC ####[facility] Hhqsaigtqe[address] [place], [place] [address]Dr. Airam Tripathi Hematocrit (Bld) [Volume fraction] 30.0 % Critically low 36.0-48.0 [facility] Comment on above: Performed By: #### C BC ####[facility] Bdctdtiqxp[address] [place], [place] [address]Dr. Airam Tripathi Hemoglobin (Bld) [Mass/Vol] 9.3 g/dL Critically low 12.0-16.0 [facility] Comment on above: Performed By: #### C BC ####[facility] [address]zitrjvprr4[address] [place] [phone]. Airam Tripathi IG # 0.03 10e3/ul Normal 0.00-0.03 [facility] Comment on above: Performed By: #### C BC ####[facility] [address]vfr[address] [place], [place] [address]Dr. Airam Tripathi IG % 0.5 % Normal 0.0-0.5 [facility] Comment on above: Performed By: #### C BC ####[facility] Zizsadgbmt13[address] [place] [phone]. Airam Tripathi LYMPH # 1.4 103/ul Normal 1.2-3.8 [facility] Comment on above: Performed By: #### C BC ####[facility] Hvtiiujgtz9656 [place] [phone]. Airam Tripathi Lymphocytes/100 WBC (Bld) 22.5 % Normal 20.5-60.0 [facility] Comment on above: Performed By: #### C BC ####[facility] Hwvsjplmio4654 [place] [phone]. Airam Deuce MANUAL DIFF REQ NO Normal [facility] Comment on above: Performed By: #### C BC ####[facility] Sztfqgwoja37[address] [place] [phone]. Airam Deuce MCH (RBC) [Entitic mass] 28.7 pg Normal 26.7-34.0 [facility] Comment on above: Performed By: #### C BC ####[facility] Huliszhpzg5[address] [place] [phone]. Airam Tripathi MCHC (RBC) [Mass/Vol] 31.0 g/dL Normal 29.9-35.2 [facility] Comment on above: Performed By: #### C BC ####[facility] Kszxtloxmo88[address] [place] [phone]. Airam Deuce MCV (RBC) [Entitic vol] 92.6 fL Normal 81.0-99.0 [facility] Comment on above: Performed By: #### C BC ####[facility] Edbytdkijz26[address] [place] [phone]. Airam Tripathi MONO # 0.4 103/ul Normal 0.3-0.8 [facility] Comment on above: Performed By: #### C BC ####[facility] Hvbjshoxdn3134 [place] [phone]. Airam Deuce Monocytes/100 WBC (Bld) 7.3 % Normal 1.7-12.0 [facility] Comment on above: Performed By: #### C BC ####[facility] Qirtfzkfsq8633 [place] [phone]. Airam Tripathi NEUT # 3.9 103/ul Normal 1.4-6.5 [facility] Comment on above: Performed By: #### C BC ####[facility] Rxnhyvwapi3784 [place] [phone]. Airam Tripathi Neutrophils/100 WBC (Bld) 65.2 % Normal 43.0-75.0 [facility] Comment on above: Performed By: #### C BC ####[facility] Aeyriyygpr55[address] [place] [address]Dr. Airam Tripathi Platelet mean volume (Bld) [Entitic vol] 9.0 fL Critically low 9.5-13.5 [facility] Comment on above: Performed By: #### C BC ####[facility] Daozitxmsq1358 [place] [address]Dr. Airam Tripathi PLT 247 103/ul Normal 150-450 [facility] Comment on above: Performed By: #### C BC ####[facility] Afsetzhtev[address] [place], [place] [address]Dr. Airam Tripathi RBC 3.24 106/ul Critically low 4.20-5.40 [facility] Comment on above: Performed By: #### C BC ####[facility] Kwykipllwn8265 [place] [address]Dr. Airam Tripathi WBC 6.0 103/ul Normal 4.0-11.0 [facility] Comment on above: Performed By: #### C BC ####[facility] Vwozblgrjr9526 [place] [address]Dr. Airam Tripathi CULTURE URINEon 10-24-2022 CULTURE URINE Culture Observations : LIGHT GROWTH OF MIXED GENITAL GREGORY. NO POTENTIAL PATHOGENS SEEN. Normal [facility] Comment on above: Performed By: #### U RCX ####[facility] Rrwvzzpbht9975 [place] [address]Dr. Airam Tripathi POINT OF CARE GLUCOSEon 05-0 Glucose [Mass/Vol] 118 mg/dL Critically high 74-106 T [facility] Comment on above: Performed By: #### P OCGLUC ####[facility] Hdwhajhtvq2141 [place] [address]Dr. Airam Tripathi PROF 14(COMP METB)on 023 Albumin [Mass/Vol] 3.1 g/dL Critically low 3.4-5.0 [facility] Comment on above: Performed By: #### H STROPN, BNP, CMP ####[facility] Xztfnrrihg3400 [place] [address]Dr. Airam Tripathi Albumin/Globulin [Mass ratio] 1.0 {ratio} Normal [facility] Comment on above: Performed By: #### H STROPN, BNP, CMP ####[facility] Bukydssuvf[address] [place], [place] [address]Dr. Airam Tripathi ALP [Catalytic activity/Vol] 131 U/L Critically high 46-116 [facility] Comment on above: Performed By: #### H STROPN, BNP, CMP ####[facility] Fvuguhzjjr[address] [place], [place] [address]Dr. Airam Tripathi ALT [Catalytic activity/Vol] 26 U/L Normal 14-59 [facility] Comment on above: Performed By: #### H STROPN, BNP, CMP ####[facility] Vbliqdrsuq[address] [place], [place] [address]Dr. Airam Tripathi Anion gap [Moles/Vol] 11.2 mmol/L Normal [facility] Comment on above: Performed By: #### H STROPN, BNP, CMP ####[facility] Wledqghrzj[address] [place], [place] [address]Dr. Airam Tripathi AST [Catalytic activity/Vol] 31 U/L Normal 15-37 [facility] Comment on above: Performed By: #### H STROPN, BNP, CMP ####[facility] Bbtcccnplf[address] [place], [place] [address]Dr. Airam Tripathi Bilirubin [Mass/Vol] 0.2 mg/dL Normal 0.2-1.0 [facility] Comment on above: Performed By: #### H STROPN, BNP, CMP ####[facility] Scasuinvcm347[address] [place], [place] [address]Dr. Airam Tripathi Calcium [Mass/Vol] 8.6 mg/dL Normal 8.5-10.1 [facility] Comment on above: Performed By: #### H STROPN, BNP, CMP ####[facility] Ulqrajsjfj6972 [place] [address]Dr. Airam Tripathi Chloride [Moles/Vol] 102 mmol/L Normal 98-107 [facility] Comment on above: Performed By: #### H STROPN, BNP, CMP ####[facility] Xsmqszconn0960 [place] [address]Dr. Airam Tripathi CO2 [Moles/Vol] 27.4 mmol/L Normal 21.0-32.0 [facility] Comment on above: Performed By: #### H STROPN, BNP, CMP ####[facility] Rbzftnbuyj[address] [place], [place] [address]Dr. Airam Tripathi Creatinine [Mass/Vol] 1.23 mg/dL Critically high 0.55-1.02 [facility] Comment on above: Performed By: #### H STROPN, BNP, CMP ####[facility] Xlzxqllouu[address] [place], [place] [address]Dr. Airam Tripathi EGFR-AF ISRAELI 54 mL/min/1.73m2 Critically low >=60 [facility] Comment on above: Performed By: #### H STROPN, BNP, CMP ####[facility] Aheiqpcfoc[address] [place], [place] [address]Dr. Airam Tripathi EGFR-NON AF ISRAELI 45 mL/min/1.73m2 Critically low >=60 [facility] Comment on above: Performed By: #### H STROPN, BNP, CMP ####[facility] Dsdouozkhc6690 [place] [address]Dr. Airam Tripathi Globulin (S) [Mass/Vol] 3.1 g/dL Normal [facility] Comment on above: Performed By: #### H STROPN, BNP, CMP ####[facility] Dsxezvdaej1246 [place] [address]Dr. Airam Tripathi Glucose [Mass/Vol] 90 mg/dL Normal 74-106 [facility] Comment on above: Performed By: #### H STROPN, BNP, CMP ####[facility] Fdtluuelky9284 [place] [address]Dr. Airam Tripathi Potassium [Moles/Vol] 5.6 mmol/L Critically high 3.5-5.1 [facility] Comment on above: Performed By: #### H STROPN, BNP, CMP ####[facility] Udhnuogivb8021 [place] [address]Dr. Airam Tripathi Protein [Mass/Vol] 6.2 g/dL Critically low 6.4-8.2 Th [facility] Comment on above: Performed By: #### H STROPN, BNP, CMP ####[facility] Bnbqptbwmv0314 [place] [address]Dr. Airam Tripathi Sodium [Moles/Vol] 135 mmol/L Critically low 136-145 Th [facility] Comment on above: Performed By: #### H STROPN, BNP, CMP ####[facility] Lwjxxsibkn7163 [place] [address]Dr. Airam Tripathi Urea nitrogen [Mass/Vol] 38.0 mg/dL Critically high 7.0-18.0 [facility] Comment on above: Performed By: #### H STROPN, BNP, CMP ####[facility] Rzkclqjudy4956 [place] [address]Dr. Airam Tripatih Urea nitrogen/Creatinine [Mass ratio] 30.9 mg/mg Normal [facility] Comment on above: Performed By: #### H STROPN, BNP, CMP ####[facility] Njjcggixnq0036 [place] [address]Dr. Airam Tripathi TROPONIN, HIGH SENSITIVITYon 10-24-2022 HSTROP 8.0 pg/mL Normal 4.0-51.3 [facility] Comment on above: Result Comment: CUT- OFF POINTS HAVE BEEN ESTABLISHED BASED ON THE FOURTH UNIVERSAL DEFINITIONS OF MYOCARDIALINFARCTION. THE UPPER REFERENCE LIMIT (URL) OF TROPONIN, DEFINED THE 99TH PERCENTILE OFcTnI DISTRIBUTION IN A REFERENCE POPULATION, HAS BEEN CONFIRMED THE DECISION THRESHOLDFOR ID DIAGNOSIS. Performed By: #### H STROPN, BNP, CMP ####[facility] Lanzjmhxtz6626 [place] [address]Dr. Airam Tripathi UA RANDOM W/MICROSCOPICon BACTERIA NONE SEEN Normal NONE SEEN [facility] Comment on above: Performed By: #### U AMIC ####[facility] Wvbnxerfbp2847 [place] [address]Dr. Airam Tripathi Bilirubin Ql (U) Negative Normal NEGATIVE [facility] Comment on above: Performed By: #### U AMIC ####[facility] Swnrusuwml[address] [place], [place] [address]Dr. Airam Tripathi CAST NONE SEEN Normal NONE SEEN [facility] Comment on above: Performed By: #### U AMIC ####[facility] Ciwbvrohvc[address] [place], [place] [address]Dr. Airam Tripathi Clarity (U) CLEAR Normal CLEAR [facility] Comment on above: Performed By: #### U AMIC ####[facility] Zwbohvwbnj24[address] [place], [place] [address]Dr. Airam Tripathi Color (U) LT. YELLOW Normal YELLOW [facility] Comment on above: Performed By: #### U AMIC ####[facility] Wckcdwvvnd[address] [place], [place] [address]Dr. Airam Tripathi Crystals LM Nom (Urine sed) NONE SEEN Normal NONE SEEN [facility] Comment on above: Performed By: #### U AMIC ####[facility] Ksgnepdndi7[address] [place], [place] [address]Dr. Airam Tripathi Epithelial cells LM Ql (Urine sed) RARE Normal NONE SEEN /RARE [facility] Comment on above: Performed By: #### U AMIC ####[facility] Orutowvgyb0439 [place] [address]Dr. Airam Tripathi Glucose Ql (U) Negative Normal NEGATIVE [facility] Comment on above: Performed By: #### U AMIC ####[facility] Abehlgreky[address] [place], [place] [address]Dr. Airam Tripathi Hemoglobin Ql (U) Negative Normal NEGATIVE [facility] Comment on above: Performed By: #### U AMIC ####[facility] Mbpxbkokbx3956 [place] [address]Dr. Airam Tripathi Ketones Ql (U) Negative Normal NEGATIVE [facility] Comment on above: Performed By: #### U AMIC ####[facility] Xtjshjkzqd3974 [place] [address]Dr. Airam Tripathi LEUKOCYTES Negative Normal NEGATIVE [facility] Comment on above: Performed By: #### U AMIC ####[facility] Amrjbueiiu7910 [place] [address]Dr. Airam Tripathi MUCOUS NONE SEEN Normal NONE SEEN [facility] Comment on above: Performed By: #### U AMIC ####[facility] Azjovelrxg4202 [place] [address]Dr. Airam Tripathi Nitrite Ql (U) Negative Normal NEGATIVE [facility] Comment on above: Performed By: #### U AMIC ####[facility] Koddrudkuw2442 [place] [address]Dr. Airam Tripathi pH (U) 7.0 [pH] Normal 5-9 [facility] Comment on above: Performed By: #### U AMIC ####[facility] Jabuelzalk[address] [place], [place] [address]Dr. Airam Tripathi RBC 0-2 Normal 0-2 [facility] Comment on above: Performed By: #### U AMIC ####[facility] Hfifumswoa6582 [place] [address]Dr. Airam Tripathi SPEC GRAVITY 1.015 Normal 1.005-<=1. 025 [facility] Comment on above: Performed By: #### U AMIC ####[facility] Uqciqrmmcc[address] [place], [place] [address]Dr. Airam Tripathi UA PROTEIN Negative Normal NEGATIVE/ TRACE [facility] Comment on above: Performed By: #### U AMIC ####[facility] Irfppwbmnc0460 [place] [address]Dr. Airam Tripathi Urobilinogen Qn (U) 0.2 {Ligia'U}/dL Normal 0.2 - 1. 0 [facility] Comment on above: Performed By: #### U AMIC ####[facility] Ayxvbbncld6728 [place] [phone]. Airam Tripathi WBC NONE SEEN Normal NONE SEEN [facility] Comment on above: Performed By: #### U AMIC ####[facility] Hvuxsnulhe9098 [place] [phone]. Airam Tripathi XR CHEST 1 Von 10-24-2022 XR CHEST 1 V Normal [facility] CBC AUTO DIFFon 10-19-2022 BASO # 0.0 103/ul Normal 0.0-0.1 [facility] Comment on above: Performed By: #### C BC ####[facility] Aquftshqni5817 [place] [address]Dr. Airam Deuce Basophils/100 WBC (Bld) 0.5 % Normal 0.2-2.0 [facility] Comment on above: Performed By: #### C BC ####[facility] Otihbqsllw[address] [place], [place] [address]Dr. Airam Deuce EO # 0.3 103/ul Normal 0.0-0.7 [facility] Comment on above: Performed By: #### C BC ####[facility] Hmxltmurwz5401 [place] [address]Dr. Airam Deuce Eosinophils/100 WBC (Bld) 3.3 % Normal 0.9-7.0 [facility] Comment on above: Performed By: #### C BC ####[facility] Wnrfoffgmn68[address] [place], [place] [address]Dr. Airam Tripathi Erythrocyte distribution width (RBC) [Ratio] 15.0 % Normal 11.0-15.0 [facility] Comment on above: Performed By: #### C BC ####[facility] Jkhqipxrlj[address] [place], [place] [address]Dr. Airam Tripathi Hematocrit (Bld) [Volume fraction] 32.9 % Critically low 36.0-48.0 [facility] Comment on above: Performed By: #### C BC ####[facility] Clqhotznvv7114 [place] [address]Dr. Airam Deuce Hemoglobin (Bld) [Mass/Vol] 10.1 g/dL Critically low 12.0-16.0 [facility] Comment on above: Performed By: #### C BC ####[facility] Urhtfehpdw0988 [place] [address]Dr. Airam Tripathi IG # 0.04 10e3/ul Critically high 0.00-0.03 [facility] Comment on above: Performed By: #### C BC ####[facility] Idoplndcwl0225 [place] [address]Dr. Airam Tripathi IG % 0.5 % Normal 0.0-0.5 [facility] Comment on above: Performed By: #### C BC ####[facility] Rplrximglc7782 [place] [address]Dr. Airam Tripathi LYMPH # 1.5 103/ul Normal 1.2-3.8 [facility] Comment on above: Performed By: #### C BC ####[facility] Zuomgzcans[address] [place], [place] [address]Dr. Airam Tripathi Lymphocytes/100 WBC (Bld) 18.1 % Critically low 20.5-60.0 [facility] Comment on above: Performed By: #### C BC ####[facility] Opwtrnzxld[address] [place], [place] [address]Dr. Airam Tripathi MANUAL DIFF REQ NO Normal [facility] Comment on above: Performed By: #### C BC ####[facility] Ekabsqipva5625 [place] [address]Dr. Airam Tripathi MCH (RBC) [Entitic mass] 28.3 pg Normal 26.7-34.0 [facility] Comment on above: Performed By: #### C BC ####[facility] Przswzkedr[address] [place], [place] [address]Dr. Airam Tripathi MCHC (RBC) [Mass/Vol] 30.7 g/dL Normal 29.9-35.2 [facility] Comment on above: Performed By: #### C BC ####[facility] Bophepfhta4393 [place] [address]Dr. Airam Tripathi MCV (RBC) [Entitic vol] 92.2 fL Normal 81.0-99.0 [facility] Comment on above: Performed By: #### C BC ####[facility] Qemziodqrq6835 [place] [phone]. Airam Tripathi MONO # 0.7 103/ul Normal 0.3-0.8 [facility] Comment on above: Performed By: #### C BC ####[facility] Vklxylhjiv3078 [place] [phone]. Airam Tripathi Monocytes/100 WBC (Bld) 7.7 % Normal 1.7-12.0 [facility] Comment on above: Performed By: #### C BC ####[facility] Tareicoubt3146 [place] [phone]. Airam Tripathi NEUT # 5.9 103/ul Normal 1.4-6.5 [facility] [facility] Comment on above: Performed By: #### C BC ####[facility] [id number] [place], [place] [address]Dr. Airam Tripathi Neutrophils/100 WBC (Bld) 69.9 % Normal 43.0-75.0 [facility] Comment on above: Performed By: #### C BC ####[facility] [address]kw[address]julf[address] [place] [phone]. Airam Tripathi Platelet mean volume (Bld) [Entitic vol] 9.3 fL Critically low 9.5-13.5 [facility] Comment on above: Performed By: #### C BC ####[facility] Puzqpqhczt6[address] [place] [phone]. Airam Tripathi PLT 293 103/ul Normal 150-450 [facility] Comment on above: Performed By: #### C BC ####[facility] Dvwkyjnxra6[address] [place] [phone]. Airam Tripathi RBC 3.57 106/ul Critically low 4.20-5.40 [facility] Comment on above: Performed By: #### C BC ####[facility] Nrevdshcci4[address] [place] [phone]. Airam Tripathi WBC 8.4 103/ul Normal 4.0-11.0 [facility] Comment on above: Performed By: #### C BC ####[facility] Ezjxsbgkqp94[address] [place] [address]Dr. Airam Tripathi PROF 14(COMP METB)on 023 Albumin [Mass/Vol] 3.1 g/dL Critically low 3.4-5.0 [facility] Comment on above: Performed By: #### C MP ####[facility] Qwmzuqirir[address] [place] [address]Dr. Airam Tripathi Albumin/Globulin [Mass ratio] 0.9 {ratio} Normal [facility] Comment on above: Performed By: #### C MP ####[facility] Phaqbzreif[address] [place], [place] [address]Dr. Airam Tripathi ALP [Catalytic activity/Vol] 117 U/L Critically high 46-116 [facility] Comment on above: Performed By: #### C MP ####[facility] Ydsgzgmesy[address] [place], [place] [address]Dr. Airam Tripathi ALT [Catalytic activity/Vol] 24 U/L Normal 14-59 [facility] Comment on above: Performed By: #### C MP ####[facility] Lfjlxbylwf6[address] [place], [place] [address]Dr. Airam Tripathi Anion gap [Moles/Vol] 11.1 mmol/L Normal [facility] Comment on above: Performed By: #### C MP ####[facility] Yniszlxybu7[address] [place], [place] [address]Dr. Airam Tripathi AST [Catalytic activity/Vol] 22 U/L Normal 15-37 [facility] Comment on above: Performed By: #### C MP ####[facility] Mrwdjqpwtf8435[address] [place], [place] [address]Dr. Airam Tripathi Bilirubin [Mass/Vol] 0.2 mg/dL Normal 0.2-1.0 [facility] Comment on above: Performed By: #### C MP ####[facility] Drhnsbcquo510[address] [place], [place] [address]Dr. Airam Tripathi Calcium [Mass/Vol] 8.4 mg/dL Critically low 8.5-10.1 [facility] Comment on above: Performed By: #### C MP ####[facility] Xdjtasoitw8[address] [place] [address]Dr. Airam Tripathi Chloride [Moles/Vol] 103 mmol/L Normal 98-107 [facility] Comment on above: Performed By: #### C MP ####[facility] Ugrxsqlqcp3336 [place] [address]Dr. Airam Tripathi CO2 [Moles/Vol] 25.0 mmol/L Normal 21.0-32.0 [facility] Comment on above: Performed By: #### C MP ####[facility] Jixfkgrhnl8598 [place] [address]Dr. Airam Tripathi Creatinine [Mass/Vol] 1.27 mg/dL Critically high 0.55-1.02 [facility] Comment on above: Performed By: #### C MP ####[facility] Zgivjjnogy[address] [place], [place] [address]Dr. Airam Tripathi EGFR-AF ISRAELI 52 mL/min/1.73m2 Critically low >=60 [facility] Comment on above: Performed By: #### C MP ####[facility] Uxfjksgisa393[address] [place], [place] [address]Dr. Airam Tripathi EGFR-NON AF ISRAELI 43 mL/min/1.73m2 Critically low >=60 [facility] Comment on above: Performed By: #### C MP ####[facility] Lzptgipndr5[address] [place], [place] [address]Dr. Airam Tripathi Globulin (S) [Mass/Vol] 3.3 g/dL Normal [facility] Comment on above: Performed By: #### C MP ####[facility] Repoukmmdv2520 [place] [address]Dr. Airam Deuce Glucose [Mass/Vol] 90 mg/dL Normal 74-106 [facility] Comment on above: Performed By: #### C MP ####[facility] Kuzwkzzbyi[address] [place], [place] [address]Dr. Airam Deuce Potassium [Moles/Vol] 5.1 mmol/L Normal 3.5-5.1 [facility] Comment on above: Performed By: #### C MP ####[facility] Ysdlbbaibp9438[address] [place], [place] [address]Dr. Airam Tripathi Protein [Mass/Vol] 6.4 g/dL Normal 6.4-8.2 [facility] Comment on above: Performed By: #### C MP ####[facility] Nxwtezzndl464[address] [place], [place] [address]Dr. Airam Deuce Sodium [Moles/Vol] 134 mmol/L Critically low 136-145 [facility] Comment on above: Performed By: #### C MP ####[facility] Gyplloriqn8768[address] [place], [place] [address]Dr. Airam Deuce Urea nitrogen [Mass/Vol] 33.0 mg/dL Critically high 7.0-18.0 [facility] Comment on above: Performed By: #### C MP ####[facility] Hqiapgguoa346[address] [place], [place] [address]Dr. Selenaneil Deuce Urea nitrogen/Creatinine [Mass ratio] 26.0 mg/mg Normal [facility] Comment on above: Performed By: #### C MP ####[facility] Eweszrndbv0[address] [place], [place] [address]Dr. Airam Deuce OSMOLALITYon 10-15-2022 Osmolality [Osmolality] 272 mosm/kg Critically low 275-295 [facility] Comment on above: Performed By: #### O SMO ####[facility] Ddbjlxphqn9909[address] [place], [place] [address]Dr. Airam Deuce BNPon 10-12-2022 Natriuretic peptide B (Bld) [Mass/Vol] 1337.0 pg/mL Critically high <=900.0 [facility] Comment on above: Performed By: #### B QUALITY ASSURANCE CLERK ####[facility] Gbbbxxvnqw13[address] [place], [place] [address]Dr. Airam Deuce CBC AUTO DIFFon 10-12-2022 BASO # 0.0 103/ul Normal 0.0-0.1 [facility] Comment on above: Performed By: #### C BC ####[facility] Bysadtltso[address] [place], [place] [address]Dr. Airam Deuce Basophils/100 WBC (Bld) 0.6 % Normal 0.2-2.0 [facility] Comment on above: Performed By: #### C BC ####[facility] Pinvvzptvy809[address] [place], [place] [address]Dr. Airam Tripathi EO # 0.2 103/ul Normal 0.0-0.7 [facility] Comment on above: Performed By: #### C BC ####[facility] Wrbuuhzisj70[address] [place], [place] [address]Dr. Airam Deuce Eosinophils/100 WBC (Bld) 2.3 % Normal 0.9-7.0 [facility] Comment on above: Performed By: #### C BC ####[facility] Yglhmgwocr[address]13[address] [place], [place] [address]Dr. Airam Tripathi Erythrocyte distribution width (RBC) [Ratio] 15.1 % Critically high 11.0-15.0 [facility] Comment on above: Performed By: #### C BC ####[facility] Osujzkpqrg[address] [place], [place] [address]Dr. Airam Tripathi Hematocrit (Bld) [Volume fraction] 35.9 % Critically low 36.0-48.0 [facility] Comment on above: Performed By: #### C BC ####[facility] Srcjtkmcsl[address] [place], [place] [address]Dr. Airam Rtipathi Hemoglobin (Bld) [Mass/Vol] 11.4 g/dL Critically low 12.0-16.0 [facility] Comment on above: Performed By: #### C BC ####[facility] Qxoseikfdg9340[address] [place], [place] [address]Dr. Airam Tripathi IG # 0.03 10e3/ul Normal 0.00-0.03 [facility] Comment on above: Performed By: #### C BC ####[facility] Wbwwzyabum[address] [place], [place] [address]Dr. Airam Deuce IG % 0.5 % Normal 0.0-0.5 [facility] Comment on above: Performed By: #### C BC ####[facility] Gshycfloln8[address] [place], [place] [address]Dr. Airam Tripathi LYMPH # 1.1 103/ul Critically low 1.2-3.8 [facility] Comment on above: Performed By: #### C BC ####[facility] Uwlqd[address]rlb[address] [place] [address]Dr. Airam Tripathi Lymphocytes/100 WBC (Bld) 17.2 % Critically low 20.5-60.0 [facility] Comment on above: Performed By: #### C BC ####[facility] Rsjuaanvep6547 [place] [address]Dr. Airam Tripathi MANUAL DIFF REQ NO Normal [facility] Comment on above: Performed By: #### C BC ####[facility] Rmllnhixgj[address]64[address] [place], [place] [address]Dr. Airam Tripathi MCH (RBC) [Entitic mass] 28.8 pg Normal 26.7-34.0 [facility] Comment on above: Performed By: #### C BC ####[facility] Oxrytzxbio8084[address] [place], [place] [address]Dr. Airam Tripathi MCHC (RBC) [Mass/Vol] 31.8 g/dL Normal 29.9-35.2 [facility] Comment on above: Performed By: #### C BC ####[facility] Hmellvjisj[address] [place], [place] [address]Dr. Airam Tripathi MCV (RBC) [Entitic vol] 90.7 fL Normal 81.0-99.0 [facility] Comment on above: Performed By: #### C BC ####[facility] Uvhfpanbzv[address] [place], [place] [address]Dr. Airam Tripathi MONO # 0.5 103/ul Normal 0.3-0.8 [facility] Comment on above: Performed By: #### C BC ####[facility] Ceysidfwvu[address] [place], [place] [address]Dr. Airam Tripathi Monocytes/100 WBC (Bld) 7.7 % Normal 1.7-12.0 [facility] Comment on above: Performed By: #### C BC ####[facility] Eumsotmxsq6032[address] [place], [place] [address]Dr. Airam Tripathi NEUT # 4.7 103/ul Normal 1.4-6.5 [facility] Comment on above: Performed By: #### C BC ####[facility] Gxjizjcgjs2992 [place] [address]DrKianna Airam Tripathi Neutrophils/100 WBC (Bld) 71.7 % Normal 43.0-75.0 [facility] Comment on above: Performed By: #### C BC ####[facility] Ejmlgpontb5143 [place] [address]Dr. Airam Deuce Platelet mean volume (Bld) [Entitic vol] 8.2 fL Critically low 9.5-13.5 [facility] Comment on above: Performed By: #### C BC ####[facility] Zbychrgmxu5775 [place] [address]DrKianna Airam Deuce PLT 292 103/ul Normal 150-450 [facility] Comment on above: Performed By: #### C BC ####[facility] Iqtvuyjhng[address] [place], [place] [address]DrKianna Airam Deuce RBC 3.96 106/ul Critically low 4.20-5.40 [facility] Comment on above: Performed By: #### C BC ####[facility] Hzemwrlcid914[address] [place], [place] [address]DrKianna Airam Deuce WBC 6.6 103/ul Normal 4.0-11.0 [facility] Comment on above: Performed By: #### C BC ####[facility] Wvfemwlmqz1225[address] [place], [place] [address]DrKianna Tripathi PROF 14(COMP METB)on 023 Albumin [Mass/Vol] 3.3 g/dL Critically low 3.4-5.0 [facility] Comment on above: Performed By: #### C MP ####[facility] Redydepknf[address] [place], [place] [address]Dr. Airam Tripathi Albumin/Globulin [Mass ratio] 0.9 {ratio} Normal [facility] Comment on above: Performed By: #### C MP ####[facility] Odcqdcldtj[address] [place], [place] [address]Dr. Airam Tripathi ALP [Catalytic activity/Vol] 130 U/L Critically high 46-116 [facility] Comment on above: Performed By: #### C MP ####[facility] Yzxbratuci1799 [place] [address]Dr. Airam Tripathi ALT [Catalytic activity/Vol] 23 U/L Normal 14-59 [facility] Comment on above: Performed By: #### C MP ####[facility] Jezbdfpgzo6038 [place] [address]Dr. Airam Deuce Anion gap [Moles/Vol] 11.7 mmol/L Normal Th e [facility] Comment on above: Performed By: #### C MP ####[facility] Khmdqrfbpq5535[address] [place], [place] [address]Dr. Airam Deuce AST [Catalytic activity/Vol] 23 U/L Normal 15-37 [facility] Comment on above: Performed By: #### C MP ####[facility] Mrrugjgyqy157[address] [place], [place] [address]Dr. Airam Deuce Bilirubin [Mass/Vol] 0.3 mg/dL Normal 0.2-1.0 [facility] Comment on above: Performed By: #### C MP ####[facility] Xooqyzetdj[address] [place], [place] [address]Dr. Airam Deuce Calcium [Mass/Vol] 8.7 mg/dL Normal 8.5-10.1 [facility] Comment on above: Performed By: #### C MP ####[facility] Onvzahkcch646[address] [place], [place] [address]Dr. Airam Deuce Chloride [Moles/Vol] 99 mmol/L Normal 98-107 [facility] Comment on above: Performed By: #### C MP ####[facility] Xrtzoaixue2315[address] [place], [place] [address]Dr. Airam Deuce CO2 [Moles/Vol] 28.5 mmol/L Normal 21.0-32.0 [facility] Comment on above: Performed By: #### C MP ####[facility] Fgvxpysbwu69024[address] [place], [place] [address]Dr. Airam Deuce Creatinine [Mass/Vol] 1.06 mg/dL Critically high 0.55-1.02 [facility] Comment on above: Performed By: #### C MP ####[facility] Tksewjalrb9[address] [place] [address]Dr. Airam Deuce EGFR-AF ISRAELI >60 Normal >=60 [facility] Comment on above: Performed By: #### C MP ####[facility] Cygxilwflw1141 [place] [address]Dr. Selenaneil Deuce EGFR-NON AF ISRAELI 53 mL/min/1.73m2 Critically low >=60 [facility] Comment on above: Performed By: #### C MP ####[facility] Bwpeytnqgt4[address] [place], [place] [address]Dr. Airam Tripathi Globulin (S) [Mass/Vol] 3.5 g/dL Normal [facility] Comment on above: Performed By: #### C MP ####[facility] Yxecrxxwpo4170[address] [place], [place] [address]Dr. Airam Tripathi Glucose [Mass/Vol] 79 mg/dL Normal 74-106 [facility] Comment on above: Performed By: #### C MP ####[facility] Cotkwgiebr[address] [place], [place] [address]Dr. Airam Tripathi Potassium [Moles/Vol] 4.2 mmol/L Normal 3.5-5.1 [facility] Comment on above: Performed By: #### C MP ####[facility] Acbfqsikgk295345 [address] [place], [place] [address]Dr. Airam Tripathi Protein [Mass/Vol] 6.8 g/dL Normal 6.4-8.2 [facility] Comment on above: Performed By: #### C MP ####[facility] Qaeijsyplz8060[address] [place], [place] [address]Dr. Airam Tripathi Sodium [Moles/Vol] 135 mmol/L Critically low 136-145 Th [facility] Comment on above: Performed By: #### C MP ####[facility] Kjiqjlbmdl1724[address] [place], [place] [address]Dr. Airam Tripathi Urea nitrogen [Mass/Vol] 16.0 mg/dL Normal 7.0-18.0 [facility] Comment on above: Performed By: #### C MP ####[facility] Atmmzcpkqx[address] [place], [place] [address]Dr. Selenaneil Deuce Urea nitrogen/Creatinine [Mass ratio] 15.1 mg/mg Normal [facility] Comment on above: Performed By: #### C MP ####[facility] Qnjozbayfz[address] [place], [place] [address]Dr. Selenaneil Deuce XR CHEST 1 Von 10-12-2022 XR CHEST 1 V Normal [facility] PRBC LEUKOREDUCEDon 10-10-19 PRBC LEUKOREDUCED Normal [facility] Comment on above: Performed By: #### P RBC ####[facility] Amrwpktols18[address] [place], [place] [address]Dr. Selenaneil Deuce CULTURE URINEon 10-08-2022 CULTURE URINE Normal [facility] Comment on above: Performed By: #### U RCX ####[facility] Mucewoxgjk088[address] [place], [place] [address]Dr. Selenaneil Deuce OSMOLALITYon 10-08-2022 Osmolality [Osmolality] 282 mosm/kg Normal 275-295 [facility] Comment on above: Performed By: #### O SMO ####[facility] Ndxiiomumj94[address] [place], [place] [address]Dr. Airam Deuce CBC AUTO DIFFon 10-07-2022 BASO # 0.0 103/ul Normal 0.0-0.1 [facility] Comment on above: Performed By: #### C BC ####[facility] Weigjxkhiy389[address] [place], [place] [address]Dr. Airam Tripathi Basophils/100 WBC (Bld) 0.3 % Normal 0.2-2.0 [facility] Comment on above: Performed By: #### C BC ####[facility] Kmbeckzsgc06[address] [place], [place] [address]Dr. Airam Tripathi EO # 0.2 103/ul Normal 0.0-0.7 [facility] Comment on above: Performed By: #### C BC ####[facility] Cdfmbjibzl[address] [place], [place] [address]Dr. Airam Tripathi Eosinophils/100 WBC (Bld) 3.4 % Normal 0.9-7.0 [facility] Comment on above: Performed By: #### C BC ####[facility] Xvdhfgzwts5740 [place] [address]Dr. Airam Tripathi Erythrocyte distribution width (RBC) [Ratio] 15.2 % Critically high 11.0-15.0 [facility] Comment on above: Performed By: #### C BC ####[facility] Ettrjecjbm[address] [place] [address]Dr. iAram Tripathi Hematocrit (Bld) [Volume fraction] 31.3 % Critically low 36.0-48.0 [facility] Comment on above: Performed By: #### C BC ####[facility] Apxbfsbsai[address] [place] [address]Dr. Airam Tripathi Hemoglobin (Bld) [Mass/Vol] 9.9 g/dL Critically low 12.0-16.0 [facility] Comment on above: Performed By: #### C BC ####[facility] Gujfulvryt[address] [place] [address]Dr. Airam Tripathi IG # 0.03 10e3/ul Normal 0.00-0.03 [facility] Comment on above: Performed By: #### C BC ####[facility] Zatamcvlxk9229 [place] [address]Dr. Airam Tripathi IG % 0.4 % Normal 0.0-0.5 [facility] Comment on above: Performed By: #### C BC ####[facility] Kvrcyvckcq0521 [place] [address]Dr. Airam Tripathi LYMPH # 1.3 103/ul Normal 1.2-3.8 [facility] Comment on above: Performed By: #### C BC ####[facility] Tdlizccoub[address] [place], [place] [address]Dr. Airam Tripathi Lymphocytes/100 WBC (Bld) 19.0 % Critically low 20.5-60.0 [facility] Comment on above: Performed By: #### C BC ####[facility] Emwsgplpme43[address] [place] [address]Dr. Airam Tripathi MANUAL DIFF REQ NO Normal [facility] Comment on above: Performed By: #### C BC ####[facility] Xqwlguslbj6580 [place] [address]Dr. Airam Tripathi MCH (RBC) [Entitic mass] 28.1 pg Normal 26.7-34.0 [facility] Comment on above: Performed By: #### C BC ####[facility] Jfttqtcbfb9866 [place] [address]Dr. Airam Deuce MCHC (RBC) [Mass/Vol] 31.6 g/dL Normal 29.9-35.2 [facility] Comment on above: Performed By: #### C BC ####[facility] Rmrccxgmux7527 [place] [address]Dr. Selenaneil Tripathi MCV (RBC) [Entitic vol] 88.9 fL Normal 81.0-99.0 [facility] Comment on above: Performed By: #### C BC ####[facility] [address]izgdxezt[address] [place], [place] [address]Dr. Airam Deuce MONO # 0.6 103/ul Normal 0.3-0.8 [facility] Comment on above: Performed By: #### C BC ####[facility] Yjlerlekqb3262 [place] [address]Dr. Selenaneil Tripathi Monocytes/100 WBC (Bld) 9.0 % Normal 1.7-12.0 [facility] Comment on above: Performed By: #### C BC ####[facility] Cjsqkbwxcp5687 [place] [address]Dr. Selenaneil Deuce NEUT # 4.5 103/ul Normal 1.4-6.5 [facility] Comment on above: Performed By: #### C BC ####[facility] Djkgsemlmy3515[address] [place], [place] [address]Dr. Airam Tripathi Neutrophils/100 WBC (Bld) 67.9 % Normal 43.0-75.0 [facility] Comment on above: Performed By: #### C BC ####[facility] Kuqqagmlua2248 [place] [address]Dr. Airam Deuce Platelet mean volume (Bld) [Entitic vol] 9.1 fL Critically low 9.5-13.5 [facility] Comment on above: Performed By: #### C BC ####[facility] Ykzlmdjopk4316 [place] [address]Dr. Airam Tripathi PLT 256 103/ul Normal 150-450 [facility] Comment on above: Performed By: #### C BC ####[facility] Akpvfmdlcs[address] [place] [address]Dr. Airam Tripathi RBC 3.52 106/ul Critically low 4.20-5.40 [facility] Comment on above: Performed By: #### C BC ####[facility] Bpjrylsuyn[address] [place], [place] [address]Dr. Airam Tripathi WBC 6.7 103/ul Normal 4.0-11.0 [facility] Comment on above: Performed By: #### C BC ####[facility] [address]cmoogbfla[address] [place], [place] [address]Dr. Airam Tripathi PROF 14(COMP METB)on 023 Albumin [Mass/Vol] 2.8 g/dL Critically low 3.4-5.0 [facility] Comment on above: Performed By: #### C MP ####[facility] Xliofhbtaf7019 [place] [address]Dr. Airam Tripathi Albumin/Globulin [Mass ratio] 0.9 {ratio} Normal [facility] Comment on above: Performed By: #### C MP ####[facility] Gypezyvhre[address] [place], [place] [address]Dr. Airam Tripathi ALP [Catalytic activity/Vol] 118 U/L Critically high 46-116 [facility] Comment on above: Performed By: #### C MP ####[facility] Trepdsocvh[address] [place], [place] [address]Dr. Airam Tripathi ALT [Catalytic activity/Vol] 23 U/L Normal 14-59 [facility] Comment on above: Performed By: #### C MP ####[facility] Ffrgmyxpth[address] [place], [place] [address]Dr. Airam Tripathi Anion gap [Moles/Vol] 12.5 mmol/L Normal [facility] Comment on above: Performed By: #### C MP ####[facility] Caoysemqxw1233[address] [place], [place] [address]Dr. Airam Tripathi AST [Catalytic activity/Vol] 21 U/L Normal 15-37 [facility] Comment on above: Performed By: #### C MP ####[facility] Bfovdicsto7867[address] [place], [place] [address]Dr. Airam Tripathi Bilirubin [Mass/Vol] 0.4 mg/dL Normal 0.2-1.0 [facility] Comment on above: Performed By: #### C MP ####[facility] Jpddgdganp5[address] [place], [place] [address]Dr. Airam Tripathi Calcium [Mass/Vol] 8.2 mg/dL Critically low 8.5-10.1 [facility] Comment on above: Performed By: #### C MP ####[facility] Rgnjdkauub6047[address] [place], [place] [address]Dr. Airam Tripathi Chloride [Moles/Vol] 99 mmol/L Normal 98-107 [facility] Comment on above: Performed By: #### C MP ####[facility] Zxtlxripyx9[address] [place], [place] [address]Dr. Airam Tripathi CO2 [Moles/Vol] 24.9 mmol/L Normal 21.0-32.0 [facility] Comment on above: Performed By: #### C MP ####[facility] Noqussksdm0798[address] [place], [place] [address]Dr. Airam Tripathi Creatinine [Mass/Vol] 1.61 mg/dL Critically high 0.55-1.02 [facility] Comment on above: Performed By: #### C MP ####[facility] Mmipjomfkr9[address] [place], [place] [address]Dr. Airam Deuce EGFR-AF ISRAELI 40 mL/min/1.73m2 Critically low >=60 [facility] Comment on above: Performed By: #### C MP ####[facility] Pcx[address]hnx4[address] [place] [address]Dr. Airam Tripathi EGFR-NON AF ISRAELI 33 mL/min/1.73m2 Critically low >=60 [facility] Comment on above: Performed By: #### C MP ####[facility] Jacnhfbsfn75[address] [place] [address]Dr. Airam Tripathi Globulin (S) [Mass/Vol] 3.2 g/dL Normal [facility] Comment on above: Performed By: #### C MP ####[facility] Gedlymvcyk6149[address] [place], [place] [address]Dr. Airam Tripathi Glucose [Mass/Vol] 67 mg/dL Critically low 74-106 [facility] Comment on above: Performed By: #### C MP ####[facility] Unkxnodpeb065[address] [place], [place] [address]Dr. Airam Tripathi Potassium [Moles/Vol] 5.4 mmol/L Critically high 3.5-5.1 [facility] Comment on above: Performed By: #### C MP ####[facility] Werybmrcwl5658[address] [place], [place] [address]Dr. Airam Tripathi Protein [Mass/Vol] 6.0 g/dL Critically low 6.4-8.2 [facility] Comment on above: Performed By: #### C MP ####[facility] Plnyaaqpsh5098[address] [place], [place] [address]Dr. Airam Tripathi Sodium [Moles/Vol] 131 mmol/L Critically low 136-145 [facility] Comment on above: Performed By: #### C MP ####[facility] Fwmxxmoknl975[address] [place], [place] [address]Dr. Airam Tripathi Urea nitrogen [Mass/Vol] 43.0 mg/dL Critically high 7.0-18.0 [facility] Comment on above: Performed By: #### C MP ####[facility] Ucyytcizvz5428[address] [place], [place] [address]Dr. Airam Tripathi Urea nitrogen/Creatinine [Mass ratio] 26.7 mg/mg Normal [facility] Comment on above: Performed By: #### C MP ####[facility] Kzbvwhbhko6[address] [place] [address]Dr. Airam Tripathi CBC AUTO DIFFon 10-06-2022 BASO # 0.0 103/ul Normal 0.0-0.1 [facility] Comment on above: Performed By: #### C BC ####[facility] Wtqtdkdrgh4[address] [place], [place] [address]Dr. Selenaneil Tripathi Basophils/100 WBC (Bld) 0.3 % Normal 0.2-2.0 [facility] Comment on above: Performed By: #### C BC ####[facility] Wwxvbnxyqb8745[address] [place], [place] [address]Dr. Airam Deuce EO # 0.2 103/ul Normal 0.0-0.7 [facility] Comment on above: Performed By: #### C BC ####[facility] Ofdsqdaryw576[address] [place], [place] [address]Dr. Selenaneil Tripathi Eosinophils/100 WBC (Bld) 3.1 % Normal 0.9-7.0 [facility] Comment on above: Performed By: #### C BC ####[facility] Wyeoihjgui327[address] [place], [place] [address]Dr. Airam Tripathi Erythrocyte distribution width (RBC) [Ratio] 15.0 % Normal 11.0-15.0 [facility] Comment on above: Performed By: #### C BC ####[facility] Ijtagljxlz1708[address] [place], [place] [address]Dr. Airam Tripathi Hematocrit (Bld) [Volume fraction] 30.9 % Critically low 36.0-48.0 [facility] Comment on above: Performed By: #### C BC ####[facility] Yfkdkkyflu2939[address] [place], [place] [address]Dr. Selenaneil Tripathi Hemoglobin (Bld) [Mass/Vol] 10.1 g/dL Critically low 12.0-16.0 [facility] Comment on above: Result Comment: BIJU ENT RECIEVED 2 UNITS PRBC'S Performed By: #### C BC ####[facility] Jaxtdmdogo8395[address] [place], [place] [address]Dr. Airam Tripathi IG # 0.03 10e3/ul Normal 0.00-0.03 [facility] Comment on above: Performed By: #### C BC ####[facility] Qunghdikpl[address] [place] [address]Dr. Selenaneil Tripathi IG % 0.4 % Normal 0.0-0.5 [facility] Comment on above: Performed By: #### C BC ####[facility] Rmbbncmsxs15[address] [place] [address]DrKianna Selenaneil Tripathi LYMPH # 1.1 103/ul Critically low 1.2-3.8 [facility] Comment on above: Performed By: #### C BC ####[facility] Mifnphxpbc[address] [place] [address]DrKianna Selenaneil Tripathi Lymphocytes/100 WBC (Bld) 14.4 % Critically low 20.5-60.0 [facility] Comment on above: Performed By: #### C BC ####[facility] Kdyfiutvfh[address] [place], [place] [address]DrKianna Tripathi MANUAL DIFF REQ NO Normal [facility] Comment on above: Performed By: #### C BC ####[facility] Fawpnlhfqp[address] [place] [address]Dr. Airam Deuce MCH (RBC) [Entitic mass] 28.9 pg Normal 26.7-34.0 [facility] Comment on above: Performed By: #### C BC ####[facility] Annhxfqkbt53[address] [place] [address]DrKianna Airam Deuce MCHC (RBC) [Mass/Vol] 32.7 g/dL Normal 29.9-35.2 [facility] Comment on above: Performed By: #### C BC ####[facility] Evrziuxogr[address] [place], [place] [address]DrKianna Selenaneil Tripathi MCV (RBC) [Entitic vol] 88.3 fL Normal 81.0-99.0 [facility] Comment on above: Performed By: #### C BC ####[facility] Enbcmcelsp00[address] [place], [place] [address]DrKianna Tripathi MONO # 0.6 103/ul Normal 0.3-0.8 [facility] Comment on above: Performed By: #### C BC ####[facility] Eb[address]ztl[address] [place] [phone]. Airam Tripathi Monocytes/100 WBC (Bld) 7.8 % Normal 1.7-12.0 [facility] Comment on above: Performed By: #### C BC ####[facility] Crqrjctzxq2[address] [place] [phone]. Airam Tripathi NEUT # 5.5 103/ul Normal 1.4-6.5 [facility] Comment on above: Performed By: #### C BC ####[facility] Ecnaixsbks[address] [place] [phone]. Airam Tripathi Neutrophils/100 WBC (Bld) 74.0 % Normal 43.0-75.0 [facility] Comment on above: Performed By: #### C BC ####[facility] Olykfevlnr6[address] [place] [address]Dr. Airam Tripathi Platelet mean volume (Bld) [Entitic vol] 9.2 fL Critically low 9.5-13.5 [facility] Comment on above: Performed By: #### C BC ####[facility] Gqkpdnyiaa87[address] [place] [address]Dr. Airam Tripathi PLT 275 103/ul Normal 150-450 [facility] Comment on above: Performed By: #### C BC ####[facility] Rvvqazvrmn6699 [place] [address]Dr. Airam Tripathi RBC 3.50 106/ul Critically low 4.20-5.40 [facility] Comment on above: Performed By: #### C BC ####[facility] Zguwtllzdb5648 [place] [phone]. Airam Tripathi WBC 7.4 103/ul Normal 4.0-11.0 [facility] Comment on above: Performed By: #### C BC ####[facility] Qj[address]aimgws12[address] [place] [phone]. Airam Tripathi BASO # 0.0 103/ul Normal 0.0-0.1 [facility] Comment on above: Performed By: #### C BC ####[facility] Vzvkcgcgvo1387 [place] [phone]. Airam Tripathi Basophils/100 WBC (Bld) 0.4 % Normal 0.2-2.0 [facility] Comment on above: Performed By: #### C BC ####[facility] Dupmnblalb[address] [place], [place] [address]Dr. Airam Tripathi EO # 0.2 103/ul Normal 0.0-0.7 [facility] Comment on above: Performed By: #### C BC ####[facility] Mhaxintuiq914[address] [place], [place] [address]Dr. Airam Tripathi Eosinophils/100 WBC (Bld) 4.5 % Normal 0.9-7.0 [facility] Comment on above: Performed By: #### C BC ####[facility] Tronuwxzwd9488[address] [place], [place] [address]Dr. Airam Tripathi Erythrocyte distribution width (RBC) [Ratio] 15.1 % Critically high 11.0-15.0 [facility] Comment on above: Performed By: #### C BC ####[facility] Azzhogajdl405[address] [place], [place] [address]Dr. Airam Tripathi Hematocrit (Bld) [Volume fraction] 23.0 % Critically low 36.0-48.0 [facility] Comment on above: Performed By: #### C BC ####[facility] Hkqawftkrj6735[address] [place], [place] [address]Dr. Airam Tripathi Hemoglobin (Bld) [Mass/Vol] 7.2 g/dL Critically low 12.0-16.0 [facility] Comment on above: Performed By: #### C BC ####[facility] Tsnzjiccef2127[address] [place], [place] [address]Dr. Airam Tripathi IG # 0.02 10e3/ul Normal 0.00-0.03 [facility] Comment on above: Performed By: #### C BC ####[facility] Elbimavxym6275[address] [place], [place] [address]Dr. Airam Tripathi IG % 0.4 % Normal 0.0-0.5 [facility] Comment on above: Performed By: #### C BC ####[facility] Olvjcsnyxe37[address] [place] [phone]. Airam Deuce LYMPH # 1.0 103/ul Critically low 1.2-3.8 [facility] Comment on above: Performed By: #### C BC ####[facility] Vxtgyatqgs3178 [place] [phone]. Selenaneil Tripathi Lymphocytes/100 WBC (Bld) 22.5 % Normal 20.5-60.0 [facility] Comment on above: Performed By: #### C BC ####[facility] Jaweztcnml6544 [place] [address]Dr. Airam Tripathi MANUAL DIFF REQ NO Normal [facility] Comment on above: Performed By: #### C BC ####[facility] Tfzvrqdmyv8099[address] [place], [place] [address]Dr. Airam Tripathi MCH (RBC) [Entitic mass] 28.3 pg Normal 26.7-34.0 [facility] Comment on above: Performed By: #### C BC ####[facility] Wtylnxvcaj1833[address] [place], [place] [address]Dr. Airam Deuce MCHC (RBC) [Mass/Vol] 31.3 g/dL Normal 29.9-35.2 [facility] Comment on above: Performed By: #### C BC ####[facility] Rlqnyvfhdz3302 [place] [address]Dr. Airam Tripathi MCV (RBC) [Entitic vol] 90.6 fL Normal 81.0-99.0 [facility] Comment on above: Performed By: #### C BC ####[facility] Mlbtsjyxum964[address] [place], [place] [address]Dr. Airam Tripathi MONO # 0.5 103/ul Normal 0.3-0.8 [facility] Comment on above: Performed By: #### C BC ####[facility] Ocpcmjptfr[address] [place], [place] [address]Dr. Airam Tripathi Monocytes/100 WBC (Bld) 9.7 % Normal 1.7-12.0 [facility] Comment on above: Performed By: #### C BC ####[facility] Rttlqrtxgt450[address] [place] [phone]. Airam Tripathi NEUT # 2.9 103/ul Normal 1.4-6.5 [facility] Comment on above: Performed By: #### C BC ####[facility] Bivvdejlpl9414 [place] [phone]. Airam Tripathi Neutrophils/100 WBC (Bld) 62.5 % Normal 43.0-75.0 [facility] Comment on above: Performed By: #### C BC ####[facility] Sanprdcphg9264 [place] [address]Dr. Airam Tripathi Platelet mean volume (Bld) [Entitic vol] 8.9 fL Critically low 9.5-13.5 [facility] Comment on above: Performed By: #### C BC ####[facility] Maqocxoglj0204 [place] [address]Dr. Airam Tripathi PLT 210 103/ul Normal 150-450 [facility] Comment on above: Performed By: #### C BC ####[facility] Fkislseajt3154 [place] [address]Dr. Airam Tripathi RBC 2.54 106/ul Critically low 4.20-5.40 [facility] Comment on above: Performed By: #### C BC ####[facility] Aipjbjygfv04[address] [place] [address]Dr. Airam Tripathi WBC 4.6 103/ul Normal 4.0-11.0 [facility] Comment on above: Performed By: #### C BC ####[facility] Zwwicdxzch17[address] [place] [phone]. Airam Tripathi OSMOLALITYon 10-06-2022 Osmolality [Osmolality] 279 mosm/kg Normal 275-295 [facility] Comment on above: Performed By: #### O SMO ####[facility] J[address]ohlsc[address] [place] [address]Dr. Airam Tripathi POINT OF CARE GLUCOSEon 09-24 Glucose [Mass/Vol] 72 mg/dL Critically low 74-106 [facility] Comment on above: Performed By: #### P OCGLUC ####[facility] Jfghnypcsk7071 [place] [address]Dr. Airam Tripathi Glucose [Mass/Vol] 102 mg/dL Normal 74-106 [facility] Comment on above: Performed By: #### P OCGLUC ####[facility] Hzdvbeegal8407 [place] [phone]. Airam Tripathi Glucose [Mass/Vol] 165 mg/dL Critically high 74-106 [facility] Comment on above: Performed By: #### P OCGLUC ####[facility] Qxbwvyntyk4685 [place] [address]Dr. Airam Tripathi PROF 14(COMP METB)on 023 Albumin [Mass/Vol] 2.6 g/dL Critically low 3.4-5.0 [facility] Comment on above: Performed By: #### C MP ####[facility] Upchwrafoa[address] [place], [place] [address]Dr. Airam Tripathi Albumin/Globulin [Mass ratio] 0.9 {ratio} Normal [facility] Comment on above: Performed By: #### C MP ####[facility] Tohxdeadsx00[address] [place], [place] [address]Dr. Airam Tripathi ALP [Catalytic activity/Vol] 107 U/L Normal 46-116 [facility] Comment on above: Performed By: #### C MP ####[facility] Zilgzbtvkb020[address] [place], [place] [address]Dr. Airam Tripathi ALT [Catalytic activity/Vol] 22 U/L Normal 14-59 [facility] Comment on above: Performed By: #### C MP ####[facility] Igqsyehaef836[address] [place], [place] [address]Dr. Airam Tripathi Anion gap [Moles/Vol] 10.0 mmol/L Normal [facility] Comment on above: Performed By: #### C MP ####[facility] Arabjoestj[address] [place], [place] [address]Dr. Airam Tripathi AST [Catalytic activity/Vol] 19 U/L Normal 15-37 [facility] Comment on above: Performed By: #### C MP ####[facility] Ogsbkldkui79[address] [place] [address]Dr. Airam Tripathi Bilirubin [Mass/Vol] 0.2 mg/dL Normal 0.2-1.0 [facility] Comment on above: Performed By: #### C MP ####[facility] Yazcbfxnpk2039 [place] [phone]. Airam Tripathi Calcium [Mass/Vol] 8.1 mg/dL Critically low 8.5-10.1 [facility] Comment on above: Performed By: #### C MP ####[facility] Vequyvyamc[address]24[address] [place], [place] [address]Dr. Airam Tripathi Chloride [Moles/Vol] 100 mmol/L Normal 98-107 [facility] Comment on above: Performed By: #### C MP ####[facility] Sjynermljq17[address] [place], [place] [address]Dr. Airam Tripathi CO2 [Moles/Vol] 26.2 mmol/L Normal 21.0-32.0 [facility] Comment on above: Performed By: #### C MP ####[facility] Ylwgelecyf2540[address] [place], [place] [address]Dr. Airam Tripathi Creatinine [Mass/Vol] 1.90 mg/dL Critically high 0.55-1.02 [facility] Comment on above: Performed By: #### C MP ####[facility] Dncilbxbeh04[address] [place], [place] [address]Dr. Airam Tripathi EGFR-AF ISRAELI 33 mL/min/1.73m2 Critically low >=60 [facility] Comment on above: Performed By: #### C MP ####[facility] Uljlqcbumi6785[address] [place], [place] [address]Dr. Airam Tripathi EGFR-NON AF ISRAELI 27 mL/min/1.73m2 Critically low >=60 [facility] Comment on above: Performed By: #### C MP ####[facility] Wxnpygmkvm20[address] [place], [place] [address]Dr. Airam Tripathi Globulin (S) [Mass/Vol] 2.8 g/dL Normal [facility] Comment on above: Performed By: #### C MP ####[facility] Qduxnciiqd3835 [place] [phone]. Airam Tripathi Glucose [Mass/Vol] 115 mg/dL Critically high 74-106 [facility] Comment on above: Performed By: #### C MP ####[facility] Ytrccdfvkg7321 [place] [phone]. Airam Tripathi Potassium [Moles/Vol] 5.2 mmol/L Critically high 3.5-5.1 [facility] Comment on above: Performed By: #### C MP ####[facility] Dcqrvibnwf[address] [place] [address]Dr. Airam Tripathi Protein [Mass/Vol] 5.4 g/dL Critically low 6.4-8.2 [facility] Comment on above: Performed By: #### C MP ####[facility] Ipsvermbmx399[address] [place], [place] [address]Dr. Airam Tripathi Sodium [Moles/Vol] 131 mmol/L Critically low 136-145 [facility] Comment on above: Performed By: #### C MP ####[facility] Hpygvhzljo6108[address] [place], [place] [address]Dr. Airam Tripathi Urea nitrogen [Mass/Vol] 41.0 mg/dL Critically high 7.0-18.0 [facility] Comment on above: Performed By: #### C MP ####[facility] Mbwtxbhzog3723[address] [place], [place] [address]Dr. Airam Tripathi Urea nitrogen/Creatinine [Mass ratio] 21.6 mg/mg Normal [facility] Comment on above: Performed By: #### C MP ####[facility] Yhzfgmcfcy7232[address] [place], [place] [address]Dr. Airam Deuce TYPE AND SCREENon 10-06-2022 TYPE AND SCREEN Negative Normal [facility] Comment on above: Performed By: #### T NS ####[facility] Vrzybbrijs[address] [place], [place] [address]Dr. Airam Deuce CBC AUTO DIFFon 10-05-2022 BASO # 0.0 103/ul Normal 0.0-0.1 [facility] Comment on above: Performed By: #### C BC ####[facility] Xiplrrlbvx23[address] [place] [address]Dr. Airam Tripathi Basophils/100 WBC (Bld) 0.5 % Normal 0.2-2.0 [facility] Comment on above: Performed By: #### C BC ####[facility] Kdoybslikl1559[address] [place], [place] [address]Dr. Airam Tripathi EO # 0.2 103/ul Normal 0.0-0.7 [facility] Comment on above: Performed By: #### C BC ####[facility] Rjbkssyukv9354[address] [place], [place] [address]Dr. Airam Tripathi Eosinophils/100 WBC (Bld) 3.2 % Normal 0.9-7.0 [facility] Comment on above: Performed By: #### C BC ####[facility] Afofnclywf8417[address] [place], [place] [address]Dr. Airam Tripathi Erythrocyte distribution width (RBC) [Ratio] 15.2 % Critically high 11.0-15.0 [facility] Comment on above: Performed By: #### C BC ####[facility] Cmchwnoqvg9[address] [place], [place] [address]Dr. Airam Tripathi Hematocrit (Bld) [Volume fraction] 24.7 % Critically low 36.0-48.0 [facility] Comment on above: Performed By: #### C BC ####[facility] Cqeyuqrubd08[address] [place], [place] [address]Dr. Airam Tripathi Hemoglobin (Bld) [Mass/Vol] 7.6 g/dL Critically low 12.0-16.0 [facility] Comment on above: Performed By: #### C BC ####[facility] Gewpdoxzyl8259[address] [place], [place] [address]Dr. Airam Tripathi IG # 0.02 10e3/ul Normal 0.00-0.03 [facility] Comment on above: Performed By: #### C BC ####[facility] Surpknvfrx[address] [place], [place] [address]Dr. Selenaneil Tripathi IG % 0.3 % Normal 0.0-0.5 [facility] Comment on above: Performed By: #### C BC ####[facility] Hphfgmhnhr9110 [place] [address]DrKianna Tripathi LYMPH # 1.1 103/ul Critically low 1.2-3.8 [facility] Comment on above: Performed By: #### C BC ####[facility] Fajwelusks7547 [place] [address]Dr. Airam Tripathi Lymphocytes/100 WBC (Bld) 18.4 % Critically low 20.5-60.0 [facility] Comment on above: Performed By: #### C BC ####[facility] Gvvfhyvwzx2460 [place] [address]DrKianna Tripathi MANUAL DIFF REQ NO Normal [facility] Comment on above: Performed By: #### C BC ####[facility] Uwdabytoqi[address] [place], [place] [address]Dr. Airam Tripathi MCH (RBC) [Entitic mass] 28.5 pg Normal 26.7-34.0 [facility] Comment on above: Performed By: #### C BC ####[facility] Xbqrypzarh9[address] [place], [place] [address]Dr. Airam Tripathi MCHC (RBC) [Mass/Vol] 30.8 g/dL Normal 29.9-35.2 [facility] Comment on above: Performed By: #### C BC ####[facility] Casbrdsuij4368 [place] [address]DrKianna Tripathi MCV (RBC) [Entitic vol] 92.5 fL Normal 81.0-99.0 [facility] Comment on above: Performed By: #### C BC ####[facility] Wowtkyynbc8[address] [place], [place] [address]DrKianna Tripathi MONO # 0.6 103/ul Normal 0.3-0.8 [facility] Comment on above: Performed By: #### C BC ####[facility] [address] [place] [address]Dr. Airam Tripathi Monocytes/100 WBC (Bld) 10.0 % Normal 1.7-12.0 [facility] Comment on above: Performed By: #### C BC ####[facility] [address] [place] [phone]. Airam Tripathi NEUT # 4.0 103/ul Normal 1.4-6.5 [facility] Comment on above: Performed By: #### C BC ####[facility] Ptftmmhcur[address] [place] [phone]. Airam Triapthi Neutrophils/100 WBC (Bld) 67.6 % Normal 43.0-75.0 [facility] Comment on above: Performed By: #### C BC ####[facility] Zcvuubxvoa96[address] [place] [phone]. Airam Tripathi Platelet mean volume (Bld) [Entitic vol] 8.8 fL Critically low 9.5-13.5 [facility] Comment on above: Performed By: #### C BC ####[facility] Bkns[address]hkqr[address] [place] [address]Dr. Airam Tripathi PLT 226 103/ul Normal 150-450 [facility] Comment on above: Performed By: #### C BC ####[facility] Zadjripjrm[address] [place] [phone]. Airam Tripathi RBC 2.67 106/ul Critically low 4.20-5.40 [facility] Comment on above: Performed By: #### C BC ####[facility] Jdirmmybwy[address] [place] [phone]. Airam Tripathi WBC 5.9 103/ul Normal 4.0-11.0 [facility] Comment on above: Performed By: #### C BC ####[facility] Lsjhchypug[address] [place] [phone]. Airam Tripathi Covid-19 PCR ([facility])on 09-24 SARS-CoV-2 (COVID-19) RNA MIKE+probe Ql (Unsp spec) Not detected Normal NOT DETECTED [facility] Comment on above: Result Comment: [...] for this test is supported by the [place] of Health and Human Service's declaration that [...] be used). Performed By: #### C VDTBH ####[facility] Euwafvguwg[address] [place], [place] [address]Dr. Airam Tripathi MAGNESIUMon 10-05-2022 Magnesium [Mass/Vol] 1.7 mg/dL Critically low 1.8-2.4 [facility] Comment on above: Performed By: #### M G, CMP ####[facility] Kzgqcefrqk[address] [place], [place] [address]Dr. Airam Tripathi POINT OF CARE GLUCOSEon 09-24 Glucose [Mass/Vol] 92 mg/dL Normal 74-106 [facility] Comment on above: Performed By: #### P OCGLUC ####[facility] Tniwccgcpg[address] [place], [place] [address]DrKianna Tripathi PROF 14(COMP METB)on 023 Albumin [Mass/Vol] 2.9 g/dL Critically low 3.4-5.0 Th e [facility] Comment on above: Performed By: #### M G, CMP ####[facility] Vohnwrymvy[address] [place], [place] [address]DrKianna Tripathi Albumin/Globulin [Mass ratio] 0.9 {ratio} Normal [facility] Comment on above: Performed By: #### M G, CMP ####[facility] Jzdyvwiegi[address] [place], [place] [address]DrKianna Tripathi ALP [Catalytic activity/Vol] 122 U/L Critically high 46-116 [facility] Comment on above: Performed By: #### M G, CMP ####[facility] Eavktdhebo[address] [place] [address]Dr. Airam Tripathi ALT [Catalytic activity/Vol] 24 U/L Normal 14-59 [facility] Comment on above: Performed By: #### M G, CMP ####[facility] Ioavdhskew943[address] [place], [place] [address]Dr. Selenaneil Tripathi Anion gap [Moles/Vol] 13.1 mmol/L Normal [facility] Comment on above: Performed By: #### M G, CMP ####[facility] Gpqsfdgeof6[address] [place], [place] [address]Dr. Airam Tripathi AST [Catalytic activity/Vol] 21 U/L Normal 15-37 [facility] Comment on above: Performed By: #### M G, CMP ####[facility] Tetsvslixi[address] [place], [place] [address]Dr. Airam Tripathi Bilirubin [Mass/Vol] 0.2 mg/dL Normal 0.2-1.0 [facility] Comment on above: Performed By: #### M G, CMP ####[facility] Xaxsatnrxh046[address] [place], [place] [address]Dr. Airam Tripathi Calcium [Mass/Vol] 8.4 mg/dL Critically low 8.5-10.1 [facility] Comment on above: Performed By: #### M G, CMP ####[facility] Xqcuonknar7[address] [place], [place] [address]Dr. Airam Tripathi Chloride [Moles/Vol] 102 mmol/L Normal 98-107 [facility] Comment on above: Performed By: #### M G, CMP ####[facility] Fkbtdzlccv136[address] [place], [place] [address]Dr. Airam Tripathi CO2 [Moles/Vol] 23.2 mmol/L Normal 21.0-32.0 [facility] Comment on above: Performed By: #### M G, CMP ####[facility] Tsvcdbspoj[address] [place], [place] [address]Dr. Airam Tripathi Creatinine [Mass/Vol] 1.96 mg/dL Critically high 0.55-1.02 [facility] Comment on above: Performed By: #### Nadya Calderon, CMP ####[facility] Nliflavnvp219[address] [place], [place] [address]Dr. Selenaneil Deuce EGFR-AF ISRAELI 32 mL/min/1.73m2 Critically low >=60 [facility] Comment on above: Performed By: #### Nadya Calderon, CMP ####[facility] Jniwdnqckq4[address] [place], [place] [address]Dr. Airam Tripathi EGFR-NON AF ISRAELI 26 mL/min/1.73m2 Critically low >=60 [facility] Comment on above: Performed By: #### Nadya Calderon, CMP ####[facility] Yanrbzbrlp26[address] [place], [place] [address]Dr. Airam Tripathi Globulin (S) [Mass/Vol] 3.2 g/dL Normal [facility] Comment on above: Performed By: #### Nadya Calderon, CMP ####[facility] Metlopiecz[address] [place], [place] [address]Dr. Airam Tripathi Glucose [Mass/Vol] 68 mg/dL Critically low 74-106 [facility] Comment on above: Performed By: #### Nadya Calderon, CMP ####[facility] Bivcruyhep[address] [place], [place] [address]Dr. Airam Tripathi Potassium [Moles/Vol] 5.3 mmol/L Critically high 3.5-5.1 [facility] Comment on above: Performed By: #### Nadya Calderon, CMP ####[facility] Dxcrgpmgan04[address] [place], [place] [address]Dr. Airam Tripathi Protein [Mass/Vol] 6.1 g/dL Critically low 6.4-8.2 [facility] Comment on above: Performed By: #### Nadya Calderon, CMP ####[facility] Guzighkevn[address] [place], [place] [address]Dr. Airam Tripathi Sodium [Moles/Vol] 133 mmol/L Critically low 136-145 Th [facility] Comment on above: Performed By: #### Nadya Calderon, CMP ####[facility] Znmzhgpzhi[address] [place], [place] [address]Dr. Airam Tripathi Urea nitrogen [Mass/Vol] 39.0 mg/dL Critically high 7.0-18.0 [facility] Comment on above: Performed By: #### M Yumiko, CMP ####[facility] Uypqhozaqd[address] [place], [place] [address]Dr. Airam Tripathi Urea nitrogen/Creatinine [Mass ratio] 19.9 mg/mg Normal [facility] Comment on above: Performed By: #### M Yumiko, CMP ####[facility] Gonmwyyjhu[address] [place], [place] [address]Dr. Airam Tripathi SODIUM RANDOM URINEon 2022 Sodium (U) [Moles/Vol] 37 mmol/L Normal 30- [facility] Comment on above: Performed By: #### N AU ####[facility] Kpvkbuawyb[address] [place], [place] [address]Dr. Airam Tripathi UA RANDOM W/MICROSCOPICon BACTERIA TRACE Abnormal NONE SEEN [facility] Comment on above: Performed By: #### U AMIC ####[facility] Zletbipxkv[address] [place], [place] [address]Dr. Airam Tripathi Bilirubin Ql (U) Negative Normal NEGATIVE [facility] Comment on above: Performed By: #### U AMIC ####[facility] Zvzwhesdzr[address] [place], [place] [address]Dr. Airam Tripathi CAST SEEN Abnormal NONE SEEN [facility] Comment on above: Performed By: #### U AMIC ####[facility] Gfighfshdy[address] [place], [place] [address]Dr. Airam Tripathi Clarity (U) CLEAR Normal CLEAR [facility] Comment on above: Performed By: #### U AMIC ####[facility] Vpobhwsf[address] [place], [place] [address]Dr. Airam Tripathi Color (U) YELLOW Normal YELLOW [facility] Comment on above: Performed By: #### U AMIC ####[facility] Davnwimmvh[address] [place], [place] [address]Dr. Airam Triptahi Crystals LM Nom (Urine sed) NONE SEEN Normal NONE SEEN [facility] Comment on above: Performed By: #### U AMIC ####[facility] [address] [place] [address]Dr. Airam Deuce Epithelial cells LM Ql (Urine sed) RARE Normal NONE SEEN /RARE [facility] Comment on above: Performed By: #### U AMIC ####[facility] [address]ij[address]wrbjb[address] [place] [address]Dr. Selenaneil Deuce Glucose Ql (U) Negative Normal NEGATIVE [facility] Comment on above: Performed By: #### U AMIC ####[facility] Vxoriplxdh6[address] [place] [address]Dr. Airam Tripathi Hemoglobin Ql (U) Negative Normal NEGATIVE [facility] Comment on above: Performed By: #### U AMIC ####[facility] Cl[address]knlz[address] [place] [address]Dr. Airam Tripathi HYALINE CAST RARE Normal [facility] Comment on above: Performed By: #### U AMIC ####[facility] Strms[address]rokc[address] [place], [place] [address]Dr. Airam Tripathi Ketones Ql (U) TRACE Abnormal NEGATIVE [facility] Comment on above: Performed By: #### U AMIC ####[facility] Ubglfvxgok[address] [place], [place] [address]Dr. Airam Tripathi LEUKOCYTES Negative Normal NEGATIVE [facility] Comment on above: Performed By: #### U AMIC ####[facility] Gnubpkfxkd[address] [place] [address]Dr. Airam Tripathi MUCOUS NONE SEEN Normal NONE SEEN [facility] Comment on above: Performed By: #### U AMIC ####[facility] Psxwtpbvac4852 [place] [address]Dr. Airam Tripathi Nitrite Ql (U) Negative Normal NEGATIVE [facility] Comment on above: Performed By: #### U AMIC ####[facility] Mtznzvbqrf64[address] [place] [address]Dr. Airam Tripathi pH (U) 5.0 [pH] Normal 5-9 [facility] Comment on above: Performed By: #### U AMIC ####[facility] [address]qs[address]mpm[address] [place] [phone]. Airam Deuce RBC 0-2 Normal 0-2 [facility] Comment on above: Performed By: #### U AMIC ####[facility] Bu[address]igerw[address] [place] [phone]. Airam Deuce SPEC GRAVITY 1.015 Normal 1.005-<=1. 025 [facility] Comment on above: Performed By: #### U AMIC ####[facility] Oabbbvcrij[address] [place], [place] [address]Dr. Airam Tripathi UA PROTEIN Negative Normal NEGATIVE/ TRACE [facility] Comment on above: Performed By: #### U AMIC ####[facility] Kppueukepo[address] [place], [place] [address]Dr. Selenaneil Tripathi Urobilinogen Qn (U) 0.2 {Ligia'U}/dL Normal 0.2 - 1. 0 [facility] Comment on above: Performed By: #### U AMIC ####[facility] Juydapcsje[address] [place], [place] [address]Dr. Airam Deuce WBC NONE SEEN Normal NONE SEEN [facility] Comment on above: Performed By: #### U AMIC ####[facility] Sdziedyvrz24[address] [place], [place] [address]Dr. Airam Deuce CBC AUTO DIFFon 10-04-2022 BASO # 0.0 103/ul Normal 0.0-0.1 [facility] Comment on above: Performed By: #### C BC ####[facility] Hqpwhdhnyx[address] [place], [place] [address]Dr. Airam Tripathi Basophils/100 WBC (Bld) 0.3 % Normal 0.2-2.0 [facility] Comment on above: Performed By: #### C BC ####[facility] Jxydfwkigj4[address] [place], [place] [address]Dr. Airam Tripathi EO # 0.2 103/ul Normal 0.0-0.7 [facility] Comment on above: Performed By: #### C BC ####[facility] [address]gavzvfz[address] [place], [place] [address]Dr. Airam Tripathi Eosinophils/100 WBC (Bld) 3.2 % Normal 0.9-7.0 [facility] Comment on above: Performed By: #### C BC ####[facility] Scwtmcwevc[address] [place], [place] [address]Dr. Airam Tripathi Erythrocyte distribution width (RBC) [Ratio] 15.1 % Critically high 11.0-15.0 [facility] Comment on above: Performed By: #### C BC ####[facility] Uqhkrbnalx[address] [place], [place] [address]Dr. Airam Tripathi Hematocrit (Bld) [Volume fraction] 27.6 % Critically low 36.0-48.0 [facility] Comment on above: Performed By: #### C BC ####[facility] Esxskwifru[address] [place], [place] [address]Dr. Airam Tripathi Hemoglobin (Bld) [Mass/Vol] 8.7 g/dL Critically low 12.0-16.0 [facility] Comment on above: Performed By: #### C BC ####[facility] Zlefozwxcb[address] [place], [place] [address]Dr. Airam Tripathi IG # 0.03 10e3/ul Normal 0.00-0.03 [facility] Comment on above: Performed By: #### C BC ####[facility] Gmyeakhsbk[address] [place], [place] [address]Dr. Airam Tripathi IG % 0.4 % Normal 0.0-0.5 [facility] Comment on above: Performed By: #### C BC ####[facility] Dgvhhwgcgl[address] [place], [place] [address]Dr. Airam Tripathi LYMPH # 1.2 103/ul Normal 1.2-3.8 [facility] Comment on above: Performed By: #### C BC ####[facility] Rsjijulkzy1425[address] [place], [place] [address]Dr. Airam Tripathi Lymphocytes/100 WBC (Bld) 16.4 % Critically low 20.5-60.0 [facility] Comment on above: Performed By: #### C BC ####[facility] Mpa[address]dcqzj[address] [place] [address]Dr. Selenaneil Tripathi MANUAL DIFF REQ NO Normal [facility] Comment on above: Performed By: #### C BC ####[facility] Yaxfwqxdvq40[address] [place] [address]Dr. Airam Deuce MCH (RBC) [Entitic mass] 28.5 pg Normal 26.7-34.0 [facility] Comment on above: Performed By: #### C BC ####[facility] Vvpicbwjws59[address] [place] [address]Dr. Airam Deuce MCHC (RBC) [Mass/Vol] 31.5 g/dL Normal 29.9-35.2 [facility] Comment on above: Performed By: #### C BC ####[facility] Qigksufdzt[address] [place], [place] [address]Dr. Selenaneil Tripathi MCV (RBC) [Entitic vol] 90.5 fL Normal 81.0-99.0 [facility] Comment on above: Performed By: #### C BC ####[facility] Lyklllrbfq[address] [place], [place] [address]Dr. Selenaneil Deuce MONO # 0.5 103/ul Normal 0.3-0.8 [facility] Comment on above: Performed By: #### C BC ####[facility] Ufhmozcody[address] [place], [place] [address]Dr. Airam Tripathi Monocytes/100 WBC (Bld) 7.3 % Normal 1.7-12.0 [facility] Comment on above: Performed By: #### C BC ####[facility] Mboofawyep[address] [place] [address]Dr. Airam Tripathi NEUT # 5.4 103/ul Normal 1.4-6.5 [facility] Comment on above: Performed By: #### C BC ####[facility] I[address]odnsscs[address] [place], [place] [address]Dr. Airam Tripathi Neutrophils/100 WBC (Bld) 72.4 % Normal 43.0-75.0 [facility] Comment on above: Performed By: #### C BC ####[facility] F[address]emthirc[address] [place] [address]Dr. Airam Deuce Platelet mean volume (Bld) [Entitic vol] 9.1 fL Critically low 9.5-13.5 [facility] Comment on above: Performed By: #### C BC ####[facility] Peakwjcrza[address] [place] [address]Dr. Selenaneil Deuce PLT 304 103/ul Normal 150-450 [facility] Comment on above: Performed By: #### C BC ####[facility] Bzqssjncda32[address] [place] [address]Dr. Selenaneil Decue RBC 3.05 106/ul Critically low 4.20-5.40 [facility] Comment on above: Performed By: #### C BC ####[facility] X[address]rrqnupey[address] [place], [place] [address]Dr. Selenaneil Deuce WBC 7.4 103/ul Normal 4.0-11.0 [facility] Comment on above: Performed By: #### C BC ####[facility] V[address]uipiah[address] [place] [address]Dr. Airam Tripathi PROF 14(COMP METB)on 023 Albumin [Mass/Vol] 3.3 g/dL Critically low 3.4-5.0 [facility] Comment on above: Performed By: #### C MP ####[facility] Ausnfwfqfv[address] [place] [address]Dr. Airam Tripathi Albumin/Globulin [Mass ratio] 0.9 {ratio} Normal [facility] Comment on above: Performed By: #### C MP ####[facility] Pbkcgjgeps70[address] [place] [address]Dr. Airam Tripathi ALP [Catalytic activity/Vol] 127 U/L Critically high 46-116 [facility] Comment on above: Performed By: #### C MP ####[facility] Exlfsooibs[address] [place], [place] [address]Dr. Airam Tripathi ALT [Catalytic activity/Vol] 29 U/L Normal 14-59 [facility] Comment on above: Performed By: #### C MP ####[facility] G[address]ok[address]ok[address] [place], [place] [address]Dr. Airam Tripathi Anion gap [Moles/Vol] 14.6 mmol/L Normal Th e [facility] Comment on above: Performed By: #### C MP ####[facility] Tvcwnmnxfe5[address] [place] [address]Dr. Airam Tripathi AST [Catalytic activity/Vol] 28 U/L Normal 15-37 [facility] Comment on above: Performed By: #### C MP ####[facility] Ylfzljiwxr4598 [place] [address]Dr. Airam Tripathi Bilirubin [Mass/Vol] 0.3 mg/dL Normal 0.2-1.0 [facility] Comment on above: Performed By: #### C MP ####[facility] Gcvqllsypn4197 [place] [address]Dr. Airam Tripathi Calcium [Mass/Vol] 8.9 mg/dL Normal 8.5-10.1 [facility] Comment on above: Performed By: #### C MP ####[facility] K[address]dz[address] [place], [place] [address]Dr. Selenaneil Tripathi Chloride [Moles/Vol] 99 mmol/L Normal 98-107 [facility] Comment on above: Performed By: #### C MP ####[facility] Lcdvjurtug[address] [place], [place] [address]Dr. Selenaneil Deuce CO2 [Moles/Vol] 25.1 mmol/L Normal 21.0-32.0 [facility] Comment on above: Performed By: #### C MP ####[facility] Qypwodgcpi9074 [place] [address]Dr. Airam Tripathi Creatinine [Mass/Vol] 1.42 mg/dL Critically high 0.55-1.02 [facility] Comment on above: Performed By: #### C MP ####[facility] R[address]wwjaect[address] [place], [place] [address]Dr. Selenaneil Deuce EGFR-AF ISRAELI 46 mL/min/1.73m2 Critically low >=60 [facility] Comment on above: Performed By: #### C MP ####[facility] Zpgmfzaium[address] [place], [place] [address]Dr. Selenaneil Deuce EGFR-NON AF ISRAELI 38 mL/min/1.73m2 Critically low >=60 [facility] Comment on above: Performed By: #### C MP ####[facility] Sefhczyilj20[address] [place] [address]Dr. Selenaneil Deuce Globulin (S) [Mass/Vol] 3.6 g/dL Normal [facility] Comment on above: Performed By: #### C MP ####[facility] Dktthdbloe67[address] [place] [address]Dr. Airam Tripathi Glucose [Mass/Vol] 79 mg/dL Normal 74-106 [facility] Comment on above: Performed By: #### C MP ####[facility] Zjrljxpimg[address] [place], [place] [address]Dr. Airam Tripathi Potassium [Moles/Vol] 5.7 mmol/L Critically high 3.5-5.1 [facility] Comment on above: Performed By: #### C MP ####[facility] Isqmwwmszv[address] [place], [place] [address]Dr. Airam Tripathi Protein [Mass/Vol] 6.9 g/dL Normal 6.4-8.2 [facility] Comment on above: Performed By: #### C MP ####[facility] Awbcpxnqrm[address] [place], [place] [address]Dr. Airam Tripathi Sodium [Moles/Vol] 133 mmol/L Critically low 136-145 Th [facility] Comment on above: Performed By: #### C MP ####[facility] Rxeylnxvhr[address] [place], [place] [address]Dr. Airam Tripathi Urea nitrogen [Mass/Vol] 35.0 mg/dL Critically high 7.0-18.0 [facility] Comment on above: Performed By: #### C MP ####[facility] Vrsysoiyyc[address] [place], [place] [address]Dr. Airam Tripathi Urea nitrogen/Creatinine [Mass ratio] 24.6 mg/mg Normal [facility] Comment on above: Performed By: #### C MP ####[facility] [address]xoijdhtmz[address] [place], [place] [address]Dr. Airam Tripathi OSMOLALITYon 10-02-2022 Osmolality [Osmolality] 277 mosm/kg Normal 275-295 [facility] Comment on above: Performed By: #### O SMO ####[facility] [address]zqwnerbiu[address] [place] [address]Dr. Airam Tripathi CBC AUTO DIFFon 09-29-2022 BASO # 0.0 103/ul Normal 0.0-0.1 [facility] Comment on above: Performed By: #### C BC ####[facility] Qrlxisgtpn[address] [place] [address]Dr. Airam Tripathi Basophils/100 WBC (Bld) 0.5 % Normal 0.2-2.0 [facility] Comment on above: Performed By: #### C BC ####[facility] [address]boaf[address] [place], [place] [address]Dr. Airam Tripathi EO # 0.2 103/ul Normal 0.0-0.7 The [facility] [facility] Comment on above: Performed By: #### C BC ####[facility] Lijhdfvyhf[address] [place], [place] [address]Dr. Airam Tripathi Eosinophils/100 WBC (Bld) 3.2 % Normal 0.9-7.0 [facility] Comment on above: Performed By: #### C BC ####[facility] Vobdnoqeuu[address] [place], [place] [address]Dr. Airam Tripathi Erythrocyte distribution width (RBC) [Ratio] 15.1 % Critically high 11.0-15.0 [facility] Comment on above: Performed By: #### C BC ####[facility] Otdagosiqt9[address] [place], [place] [address]Dr. Airam Tripathi Hematocrit (Bld) [Volume fraction] 26.2 % Critically low 36.0-48.0 [facility] Comment on above: Performed By: #### C BC ####[facility] Iardpmlifv9[address] [place], [place] [address]Dr. Airam Tripathi Hemoglobin (Bld) [Mass/Vol] 8.1 g/dL Critically low 12.0-16.0 [facility] Comment on above: Performed By: #### C BC ####[facility] [address]onykkav[address] [place] [phone]. Airam Tripathi IG # 0.02 10e3/ul Normal 0.00-0.03 [facility] Comment on above: Performed By: #### C BC ####[facility] Hrluskjzqi0166 [place] [phone]. Airam Tripathi IG % 0.4 % Normal 0.0-0.5 [facility] Comment on above: Performed By: #### C BC ####[facility] Vyaqcemdni90[address] [place] [address]Dr. Airam Tripathi LYMPH # 1.3 103/ul Normal 1.2-3.8 [facility] Comment on above: Performed By: #### C BC ####[facility] W[address]ihvhs23[address] [place] [address]Dr. Airam Tripathi Lymphocytes/100 WBC (Bld) 22.6 % Normal 20.5-60.0 [facility] Comment on above: Performed By: #### C BC ####[facility] Wwxkzrzxwy3745 [place] [address]Dr. Airam Tripathi MANUAL DIFF REQ NO Normal [facility] Comment on above: Performed By: #### C BC ####[facility] Iycxrskrqz2617 [place] [address]Dr. Airam Tripathi MCH (RBC) [Entitic mass] 28.0 pg Normal 26.7-34.0 [facility] Comment on above: Performed By: #### C BC ####[facility] Xpfiflkvxr2850 [place] [address]Dr. Airam Tripathi MCHC (RBC) [Mass/Vol] 30.9 g/dL Normal 29.9-35.2 [facility] Comment on above: Performed By: #### C BC ####[facility] Ddsmxpzcln7551 [place] [address]Dr. Airam Tripathi MCV (RBC) [Entitic vol] 90.7 fL Normal 81.0-99.0 [facility] Comment on above: Performed By: #### C BC ####[facility] Aakrqmzqcm0845 [place] [phone]. Airam Tripathi MONO # 0.5 103/ul Normal 0.3-0.8 [facility] Comment on above: Performed By: #### C BC ####[facility] Scfocoptjl1593 [place] [phone]. Airam Tripathi Monocytes/100 WBC (Bld) 9.6 % Normal 1.7-12.0 [facility] Comment on above: Performed By: #### C BC ####[facility] Eqmmuxjipf0401 [place] [phone]. Airam Tripathi NEUT # 3.6 103/ul Normal 1.4-6.5 [facility] Comment on above: Performed By: #### C BC ####[facility] Pyzsxdnbnj3521 [place] [phone]. Airam Tripathi Neutrophils/100 WBC (Bld) 63.7 % Normal 43.0-75.0 [facility] Comment on above: Performed By: #### C BC ####[facility] Hhwwagpzpm4324 [place] [phone]. Airam Tripathi Platelet mean volume (Bld) [Entitic vol] 9.4 fL Critically low 9.5-13.5 [facility] Comment on above: Performed By: #### C BC ####[facility] Frfrwwjdzc2572 [place] [phone]. Airam Tripathi PLT 258 103/ul Normal 150-450 [facility] Comment on above: Performed By: #### C BC ####[facility] Wmizoriqwv1686 [place] [phone]. Airam Tripathi RBC 2.89 106/ul Critically low 4.20-5.40 [facility] Comment on above: Performed By: #### C BC ####[facility] Uyxhsigxxd2897 [place] [phone]. Airam Tripathi WBC 5.6 103/ul Normal 4.0-11.0 [facility] Comment on above: Performed By: #### C BC ####[facility] Dbyovcsezg4330 [place] [phone]. Airam Tripathi PROF 14(COMP METB)on 023 Albumin [Mass/Vol] 3.0 g/dL Critically low 3.4-5.0 [facility] Comment on above: Performed By: #### C MP ####[facility] Mfjvkhcqgg95[address] [place] [address]Dr. Airam Tripathi Albumin/Globulin [Mass ratio] 1.1 {ratio} Normal [facility] Comment on above: Performed By: #### C MP ####[facility] Rytqjhafhm[address] [place], [place] [address]Dr. Airam Tripathi ALP [Catalytic activity/Vol] 102 U/L Normal 46-116 [facility] Comment on above: Performed By: #### C MP ####[facility] Omckqzhgvf7[address] [place], [place] [address]Dr. Airam Tripathi ALT [Catalytic activity/Vol] 20 U/L Normal 14-59 [facility] Comment on above: Performed By: #### C MP ####[facility] Cwldxzevhr[address] [place], [place] [address]Dr. Airam Tripathi Anion gap [Moles/Vol] 11.1 mmol/L Normal [facility] Comment on above: Performed By: #### C MP ####[facility] Kreapvmsdn6429[address] [place], [place] [address]Dr. Airam Tripathi AST [Catalytic activity/Vol] 18 U/L Normal 15-37 [facility] Comment on above: Performed By: #### C MP ####[facility] Kuddxyyacc4129[address] [place], [place] [address]Dr. Airam Tripathi Bilirubin [Mass/Vol] 0.2 mg/dL Normal 0.2-1.0 [facility] Comment on above: Performed By: #### C MP ####[facility] Jzdvefdwah170[address] [place], [place] [address]Dr. Airam Tripathi Calcium [Mass/Vol] 8.0 mg/dL Critically low 8.5-10.1 [facility] Comment on above: Performed By: #### C MP ####[facility] Ipnwioftch1453 [place] [phone]. Airam Deuce Chloride [Moles/Vol] 100 mmol/L Normal 98-107 [facility] Comment on above: Performed By: #### C MP ####[facility] Pzxngtynos9614[address] [place], [place] [address]Dr. Airam Tripathi CO2 [Moles/Vol] 24.8 mmol/L Normal 21.0-32.0 [facility] Comment on above: Performed By: #### C MP ####[facility] Iskqwqhbae3639[address] [place], [place] [address]Dr. Airam Deuce Creatinine [Mass/Vol] 1.11 mg/dL Critically high 0.55-1.02 [facility] Comment on above: Performed By: #### C MP ####[facility] Irmsrkpyez3928[address] [place], [place] [address]Dr. Selenaneil Deuce EGFR-AF ISRAELI >60 Normal >=60 [facility] Comment on above: Performed By: #### C MP ####[facility] Beynfhamgh44[address] [place], [place] [address]Dr. Airam Deuce EGFR-NON AF ISRAELI 50 mL/min/1.73m2 Critically low >=60 [facility] Comment on above: Performed By: #### C MP ####[facility] Axivsjueoe3694[address] [place], [place] [address]Dr. Airam Tripathi Globulin (S) [Mass/Vol] 2.8 g/dL Normal [facility] Comment on above: Performed By: #### C MP ####[facility] Xxycgynfzx115[address] [place], [place] [address]Dr. Selenaneil Tripathi Glucose [Mass/Vol] 77 mg/dL Normal 74-106 [facility] Comment on above: Performed By: #### C MP ####[facility] Jeufeggnoa5732[address] [place], [place] [address]Dr. Airam Tripathi Potassium [Moles/Vol] 4.9 mmol/L Normal 3.5-5.1 [facility] Comment on above: Performed By: #### C MP ####[facility] Dyxwjpgela[address] [place], [place] [address]Dr. Airam Tripathi Protein [Mass/Vol] 5.8 g/dL Critically low 6.4-8.2 [facility] Comment on above: Performed By: #### C MP ####[facility] Qsrcfkgwya3049[address] [place], [place] [address]Dr. Airam Tripathi Sodium [Moles/Vol] 131 mmol/L Critically low 136-145 [facility] Comment on above: Performed By: #### C MP ####[facility] Xsdmtyvmck7424[address] [place], [place] [address]Dr. Airam Tripathi Urea nitrogen [Mass/Vol] 33.0 mg/dL Critically high 7.0-18.0 [facility] Comment on above: Performed By: #### C MP ####[facility] Epunlioelg5112[address] [place], [place] [address]Dr. Airam Tripathi Urea nitrogen/Creatinine [Mass ratio] 29.7 mg/mg Normal [facility] Comment on above: Performed By: #### C MP ####[facility] Jxvwzwssts[address] [place], [place] [address]Dr. Airam Tripathi ECHOCARDIO M/2D COMPLETEon 0 09-21-2022 ECHOCARDIO M/2D COMPLETE Normal [facility] OSMOLALITYon 09-21-2022 Osmolality [Osmolality] 282 mosm/kg Normal 275-295 [facility] Comment on above: Performed By: #### O SMO ####[facility] Egvwremsqg08[address] [place], [place] [address]Dr. Airam Tripathi PHOSPHOLIPIDSon 09-21-2022 Phospholipids, Serum 249 mg/dL Normal 151-288 [facility] Comment on above: Performed By: #### P HOSLIP ####[facility] Utkrrsxnwd217[address] [place], [place] [address]Dr. Airam Tripathi CBC AUTO DIFFon 09-20-2022 BASO # 0.0 103/ul Normal 0.0-0.1 [facility] Comment on above: Performed By: #### C BC ####[facility] Wsiopcxzku[address] [place], [place] [address]Dr. Airam Tripathi Basophils/100 WBC (Bld) 0.5 % Normal 0.2-2.0 [facility] Comment on above: Performed By: #### C BC ####[facility] Csmwsufxtj9[address] [place] [address]Dr. Airam Tripathi EO # 0.2 103/ul Normal 0.0-0.7 [facility] Comment on above: Performed By: #### C BC ####[facility] Iqvsvijida25[address] [place], [place] [address]DrKianna Airam Tripathi Eosinophils/100 WBC (Bld) 2.9 % Normal 0.9-7.0 [facility] Comment on above: Performed By: #### C BC ####[facility] Iietiklivf9416[address] [place], [place] [address]Dr. Airam Tripathi Erythrocyte distribution width (RBC) [Ratio] 15.4 % Critically high 11.0-15.0 [facility] Comment on above: Performed By: #### C BC ####[facility] Jvkgewpmvl975[address] [place], [place] [address]Dr. Airam Tripathi Hematocrit (Bld) [Volume fraction] 26.3 % Critically low 36.0-48.0 [facility] Comment on above: Performed By: #### C BC ####[facility] Fbqqwyrhun0[address] [place], [place] [address]Dr. Airam Tripathi Hemoglobin (Bld) [Mass/Vol] 8.2 g/dL Critically low 12.0-16.0 [facility] Comment on above: Performed By: #### C BC ####[facility] Lvlrsocmix[address] [place], [place] [address]Dr. Airam Tripathi IG # 0.03 10e3/ul Normal 0.00-0.03 [facility] Comment on above: Performed By: #### C BC ####[facility] Mqphuziqvo[address] [place], [place] [address]Dr. Airam Tripathi IG % 0.4 % Normal 0.0-0.5 [facility] Comment on above: Performed By: #### C BC ####[facility] Luajxteljb[address] [place], [place] [address]DrKianna Tripathi LYMPH # 1.9 103/ul Normal 1.2-3.8 [facility] Comment on above: Performed By: #### C BC ####[facility] Jakghjybpu9651 [place] [phone]. Airam Deuce Lymphocytes/100 WBC (Bld) 23.0 % Normal 20.5-60.0 [facility] Comment on above: Performed By: #### C BC ####[facility] Caegknxnif6914 [place] [phone] Tripathi MANUAL DIFF REQ NO Normal [facility] Comment on above: Performed By: #### C BC ####[facility] Hdmqfgqmpx2301 [place] [phone]. Airam Tripathi MCH (RBC) [Entitic mass] 28.5 pg Normal 26.7-34.0 [facility] Comment on above: Performed By: #### C BC ####[facility] Qbeoanzikf4587 [place] [address]Dr. Airam Tripathi MCHC (RBC) [Mass/Vol] 31.2 g/dL Normal 29.9-35.2 [facility] Comment on above: Performed By: #### C BC ####[facility] [address] [place], [place] [id number] Selenaneil Tripathi MCV (RBC) [Entitic vol] 91.3 fL Normal 81.0-99.0 [facility] Comment on above: Performed By: #### C BC ####[facility] Ujkalbfncu6765 [place] [address]Dr. Airam Tripathi MONO # 0.7 103/ul Normal 0.3-0.8 [facility] Comment on above: Performed By: #### C BC ####[facility] Tvpdjahsjn4308 [place] [phone] Tripathi Monocytes/100 WBC (Bld) 7.7 % Normal 1.7-12.0 [facility] Comment on above: Performed By: #### C BC ####[facility] Snufbcvioq7666 [place] [phone] Trpiathi NEUT # 5.5 103/ul Normal 1.4-6.5 [facility] Comment on above: Performed By: #### C BC ####[facility] Okuzrbxint[address] [place] [phone]. Airam Deuce Neutrophils/100 WBC (Bld) 65.5 % Normal 43.0-75.0 [facility] Comment on above: Performed By: #### C BC ####[facility] Ekxkwvbzak6139 [place] [phone]. Airam Tripathi Platelet mean volume (Bld) [Entitic vol] 9.1 fL Critically low 9.5-13.5 [facility] Comment on above: Performed By: #### C BC ####[facility] Rajbpofgli4871 [place] [phone]. Airam Tripathi PLT 258 103/ul Normal 150-450 [facility] Comment on above: Performed By: #### C BC ####[facility] Bjxrrnhgvj7[address] [place], [place] [address]Dr. Airam Tripathi RBC 2.88 106/ul Critically low 4.20-5.40 [facility] Comment on above: Performed By: #### C BC ####[facility] Unbkzoevjz9360 [place] [phone]. Airam Tripathi WBC 8.4 103/ul Normal 4.0-11.0 [facility] Comment on above: Performed By: #### C BC ####[facility] Jymhodyhnq1479 [place] [phone] Tripathi PROF CHEM 8 (BAS METB)on Anion gap [Moles/Vol] 10.3 mmol/L Normal [facility] Comment on above: Performed By: #### B MP ####[facility] Eohiegexnr9265 [place] [phone] Tripathi Calcium [Mass/Vol] 7.9 mg/dL Critically low 8.5-10.1 [facility] Comment on above: Performed By: #### B MP ####[facility] Vrwbpnubrq6508 [place] [phone] Tripathi Chloride [Moles/Vol] 98 mmol/L Normal 98-107 [facility] Comment on above: Performed By: #### B MP ####[facility] Zjlfbirret1803 [place] [address]Dr. Selenaneil Deuce CO2 [Moles/Vol] 27.5 mmol/L Normal 21.0-32.0 [facility] Comment on above: Performed By: #### B MP ####[facility] Eskgyogzsb000[address] [place], [place] [address]Dr. Airam Tripathi Creatinine [Mass/Vol] 1.44 mg/dL Critically high 0.55-1.02 [facility] Comment on above: Performed By: #### B MP ####[facility] Nxzsstgyhz518[address] [place], [place] [address]Dr. Airam Tripathi EGFR-AF ISRAELI 45 mL/min/1.73m2 Critically low >=60 [facility] Comment on above: Performed By: #### B MP ####[facility] Bvjbnxfcst6[address] [place], [place] [address]Dr. Airam Tripathi EGFR-NON AF ISRAELI 37 mL/min/1.73m2 Critically low >=60 [facility] Comment on above: Performed By: #### B MP ####[facility] Ohraoyqbsk5[address] [place], [place] [address]Dr. Airam Tripathi Glucose [Mass/Vol] 91 mg/dL Normal 74-106 [facility] Comment on above: Performed By: #### B MP ####[facility] Gbcaypqqej8[address] [place], [place] [address]Dr. Airam Tripathi Potassium [Moles/Vol] 4.8 mmol/L Normal 3.5-5.1 [facility] Comment on above: Performed By: #### B MP ####[facility] Dbmybeqism65[address] [place], [place] [address]Dr. Airam Tripathi Sodium [Moles/Vol] 131 mmol/L Critically low 136-145 [facility] Comment on above: Performed By: #### B MP ####[facility] Ryyetkporo2410[address] [place], [place] [address]Dr. Airam Tripathi Urea nitrogen [Mass/Vol] 40.0 mg/dL Critically high 7.0-18.0 [facility] Comment on above: Performed By: #### B MP ####[facility] Rcwhetdcri4162 [place] [address]Dr. Airam Tripathi Urea nitrogen/Creatinine [Mass ratio] 27.8 mg/mg Normal [facility] Comment on above: Performed By: #### B MP ####[facility] Lsxvxoqiie5027 [place] [address]Dr. Airam Tripathi Anion gap [Moles/Vol] 10.6 mmol/L Normal [facility] Comment on above: Performed By: #### B MP ####[facility] Immakcqzev7948[address] [place], [place] [address]Dr. Airam Tripathi Calcium [Mass/Vol] 7.9 mg/dL Critically low 8.5-10.1 [facility] Comment on above: Performed By: #### B MP ####[facility] Rugcpckvsd337[address] [place], [place] [address]Dr. Airam Tripathi Chloride [Moles/Vol] 101 mmol/L Normal 98-107 [facility] Comment on above: Performed By: #### B MP ####[facility] Qofkkupvov934[address] [place], [place] [address]Dr. Airam Tripathi CO2 [Moles/Vol] 27.4 mmol/L Normal 21.0-32.0 [facility] Comment on above: Performed By: #### B MP ####[facility] Frbcnsunka[address] [place], [place] [address]Dr. Airam Tripathi Creatinine [Mass/Vol] 1.35 mg/dL Critically high 0.55-1.02 [facility] Comment on above: Performed By: #### B MP ####[facility] Qxwkbetdyv401[address] [place], [place] [address]Dr. Airam Tripathi EGFR-AF ISRAELI 48 mL/min/1.73m2 Critically low >=60 [facility] Comment on above: Performed By: #### B MP ####[facility] Bjqpbkthis[address] [place], [place] [address]Dr. Airam Tripathi EGFR-NON AF ISRAELI 40 mL/min/1.73m2 Critically low >=60 [facility] Comment on above: Performed By: #### B MP ####[facility] Gplfjrgnsx2543 [place] [address]Dr. Airam Tripathi Glucose [Mass/Vol] 114 mg/dL Critically high 74-106 [facility] Comment on above: Performed By: #### B MP ####[facility] Gmictcakha33[address] [place], [place] [address]Dr. Airam Tripathi Potassium [Moles/Vol] 5.0 mmol/L Normal 3.5-5.1 [facility] Comment on above: Performed By: #### B MP ####[facility] Zuldezbozq233[address] [place], [place] [address]Dr. Airam Tripathi Sodium [Moles/Vol] 134 mmol/L Critically low 136-145 [facility] Comment on above: Performed By: #### B MP ####[facility] Ugncxupwyu[address] [place], [place] [address]Dr. Airam Tripathi Urea nitrogen [Mass/Vol] 40.0 mg/dL Critically high 7.0-18.0 [facility] Comment on above: Performed By: #### B MP ####[facility] Uocogisvej17[address] [place], [place] [address]Dr. Airam Tripathi Urea nitrogen/Creatinine [Mass ratio] 29.6 mg/mg Normal [facility] Comment on above: Performed By: #### B MP ####[facility] Grpeyduaaf155[address] [place], [place] [address]Dr. Airam Tripathi PTH INTACTon 09-20-2022 PTH, Intact 104 pg/mL Critically high 15-65 [facility] Comment on above: Performed By: #### P THINT ####[facility] Oslmcrfqdn42[address] [place], [place] [address]Dr. Airam Deuce BNPon 09-19-2022 Natriuretic peptide B (Bld) [Mass/Vol] 1272.0 pg/mL Critically high <=900.0 [facility] Comment on above: Performed By: #### H STROPN, TSH, K, BNP ####[facility] Bvegufqdxo8081 [place] [address]Dr. Airam Tripathi CBC AUTO DIFFon 09-19-2022 BASO # 0.0 103/ul Normal 0.0-0.1 [facility] Comment on above: Performed By: #### C BC ####[facility] Anmhkldhpn90[address] [place], [place] [address]Dr. Airam Deuce Basophils/100 WBC (Bld) 0.5 % Normal 0.2-2.0 [facility] Comment on above: Performed By: #### C BC ####[facility] Yznundbtoa6632[address] [place], [place] [address]Dr. Airam Decue EO # 0.2 103/ul Normal 0.0-0.7 [facility] Comment on above: Performed By: #### C BC ####[facility] Cddwcrkzpf168[address] [place], [place] [address]Dr. Selenaneil Tripathi Eosinophils/100 WBC (Bld) 2.6 % Normal 0.9-7.0 [facility] Comment on above: Performed By: #### C BC ####[facility] Hzogsszopg7134[address] [place], [place] [address]Dr. Airam Tripathi Erythrocyte distribution width (RBC) [Ratio] 15.5 % Critically high 11.0-15.0 [facility] Comment on above: Performed By: #### C BC ####[facility] [address]vhmqpquqe[address] [place], [place] [address]Dr. Airam Tripathi Hematocrit (Bld) [Volume fraction] 31.1 % Critically low 36.0-48.0 [facility] Comment on above: Performed By: #### C BC ####[facility] Wgzhotbnbz[address] [place], [place] [address]Dr. Selenaneil Tripathi Hemoglobin (Bld) [Mass/Vol] 9.6 g/dL Critically low 12.0-16.0 [facility] Comment on above: Performed By: #### C BC ####[facility] Bpeyacnccd[address] [place], [place] [address]Dr. Airam Tripathi IG # 0.04 10e3/ul Critically high 0.00-0.03 [facility] Comment on above: Performed By: #### C BC ####[facility] Dncmltqayp5464 [place] [phone]. Airam Tripathi IG % 0.5 % Normal 0.0-0.5 [facility] Comment on above: Performed By: #### C BC ####[facility] Clisolvytx7884 [place] [phone]. Airam Tripathi LYMPH # 1.0 103/ul Critically low 1.2-3.8 [facility] Comment on above: Performed By: #### C BC ####[facility] Rtsgaiimqa5289 [place] [phone]. Airam Tripathi Lymphocytes/100 WBC (Bld) 12.0 % Critically low 20.5-60.0 [facility] Comment on above: Performed By: #### C BC ####[facility] Fltzjnbeac3657 [place] [address]Dr. Selenaneil Tripathi MANUAL DIFF REQ NO Normal [facility] Comment on above: Performed By: #### C BC ####[facility] Uqefubllvy6059 [place] [phone]. Airam Tripathi MCH (RBC) [Entitic mass] 28.2 pg Normal 26.7-34.0 [facility] Comment on above: Performed By: #### C BC ####[facility] Ejbylepzkp6260 [place] [phone]. Airam Tripathi MCHC (RBC) [Mass/Vol] 30.9 g/dL Normal 29.9-35.2 [facility] Comment on above: Performed By: #### C BC ####[facility] Fuzfdegyne3169 [place] [phone]. Airam Tripathi MCV (RBC) [Entitic vol] 91.5 fL Normal 81.0-99.0 [facility] Comment on above: Performed By: #### C BC ####[facility] Fritgrqkkm5463 [place] [phone]. Airam Deuce MONO # 0.5 103/ul Normal 0.3-0.8 [facility] Comment on above: Performed By: #### C BC ####[facility] Lwrdsskvmr0828 [place] [phone]. Airam Tripathi Monocytes/100 WBC (Bld) 6.4 % Normal 1.7-12.0 [facility] Comment on above: Performed By: #### C BC ####[facility] Eewmgrloxk6896 [place] [phone]. Airam Tripathi NEUT # 6.4 103/ul Normal 1.4-6.5 [facility] Comment on above: Performed By: #### C BC ####[facility] Ahxrdvgoah0896 [place] [address]Dr. Airam Tripathi Neutrophils/100 WBC (Bld) 78.0 % Critically high 43.0-75.0 [facility] Comment on above: Performed By: #### C BC ####[facility] Zthgpooqpq48[address] [place], [place] [address]Dr. Airam Tripathi Platelet mean volume (Bld) [Entitic vol] 9.1 fL Critically low 9.5-13.5 [facility] Comment on above: Performed By: #### C BC ####[facility] Hfjtnnyffq05[address] [place], [place] [address]Dr. Airam Tripathi PLT 318 103/ul Normal 150-450 [facility] Comment on above: Performed By: #### C BC ####[facility] Hjltlhpzeb64[address] [place], [place] [address]Dr. Airam Tripathi RBC 3.40 106/ul Critically low 4.20-5.40 [facility] Comment on above: Performed By: #### C BC ####[facility] Sqarcbfmvx[address] [place], [place] [address]Dr. Airam Tripathi WBC 8.2 103/ul Normal 4.0-11.0 [facility] Comment on above: Performed By: #### C BC ####[facility] Qaofuhjvci914[address] [place], [place] [address]Dr. Airam Tripathi [facility] SARS-CoV-2 (COVID-19) RNA MIKE+probe Ql (Unsp spec) Not detected Normal NOT DETECTED [facility] Comment on above: Result Comment: [...] for this test is supported by the Home Economist of Health and Human Service's declaration that [...] be used). Performed By: #### C VDTBH ####[facility] Cegpeydvyj[address] [place], [place] [address]Dr. Airam Tripathi LACTATE/LACTIC ACIDon 2022 Lactate [Moles/Vol] 0.4 mmol/L Normal 0.4-2.0 [facility] Comment on above: Performed By: #### L ACT ####[facility] Rsafdxqqsf8120[address] [place], [place] [address]Dr. Airam Tripathi POTASSIUMon 09-19-2022 Potassium [Moles/Vol] 6.3 mmol/L Critically high 3.5-5.1 [facility] Comment on above: Performed By: #### H STROPN, TSH, K, BNP ####[facility] Nlncmwaogb0732[address] [place], [place] [address]Dr. Airam Tripathi PROF 14(COMP METB)on 023 Albumin [Mass/Vol] 3.5 g/dL Normal 3.4-5.0 [facility] Comment on above: Performed By: #### C MP ####[facility] Zlhaziwnjj145[address] [place], [place] [address]Dr. Airam Tripatih Albumin/Globulin [Mass ratio] 1.1 {ratio} Normal [facility] Comment on above: Performed By: #### C MP ####[facility] Xoruzimsva0011 [place] [address]Dr. Airam Tripathi ALP [Catalytic activity/Vol] 113 U/L Normal 46-116 [facility] Comment on above: Performed By: #### C MP ####[facility] Ojiquvsrub2657 [place] [phone]. Airam Tripathi ALT [Catalytic activity/Vol] 26 U/L Normal 14-59 [facility] Comment on above: Performed By: #### C MP ####[facility] Dshldjopts1253 [place] [address]Dr. Airam Tripathi Anion gap [Moles/Vol] 11.5 mmol/L Normal [facility] Comment on above: Performed By: #### C MP ####[facility] Wzqxciuwcr9[address] [place], [place] [address]Dr. Airam Tripathi AST [Catalytic activity/Vol] 24 U/L Normal 15-37 [facility] Comment on above: Performed By: #### C MP ####[facility] Tuxbyvbqwv5[address] [place], [place] [address]Dr. Airam Tripathi Bilirubin [Mass/Vol] 0.3 mg/dL Normal 0.2-1.0 [facility] Comment on above: Performed By: #### C MP ####[facility] Pvyrjizxoo54[address] [place], [place] [address]Dr. Airam Tripathi Calcium [Mass/Vol] 8.9 mg/dL Normal 8.5-10.1 [facility] Comment on above: Performed By: #### C MP ####[facility] Haqpiwdfbc49[address] [place], [place] [address]Dr. Airam Tripathi Chloride [Moles/Vol] 103 mmol/L Normal 98-107 [facility] Comment on above: Performed By: #### C MP ####[facility] Hsixkhfecs[address] [place], [place] [address]Dr. Selenaneil Deuce CO2 [Moles/Vol] 27.8 mmol/L Normal 21.0-32.0 [facility] Comment on above: Performed By: #### C MP ####[facility] Qqavqhmetg4199 [place] [phone]. Airam Tripathi Creatinine [Mass/Vol] 1.28 mg/dL Critically high 0.55-1.02 [facility] Comment on above: Performed By: #### C MP ####[facility] Vsmghcrues0529 [place] [phone]. Airam Tripathi EGFR-AF ISRAELI 52 mL/min/1.73m2 Critically low >=60 [facility] Comment on above: Performed By: #### C MP ####[facility] Tjixgcyynb3715 [place] [phone]. Airam Tripathi EGFR-NON AF ISRAELI 43 mL/min/1.73m2 Critically low >=60 [facility] Comment on above: Performed By: #### C MP ####[facility] Nucxgdzjvd0307 [place] [phone]. Airam Tripathi Globulin (S) [Mass/Vol] 3.2 g/dL Normal [facility] Comment on above: Performed By: #### C MP ####[facility] Axkpdjwspz7702 [place] [phone]. Airam Tripathi Glucose [Mass/Vol] 95 mg/dL Normal 74-106 [facility] Comment on above: Performed By: #### C MP ####[facility] Mxixhyxsbf9533 [place] [phone]. Airam Tripathi Potassium [Moles/Vol] 6.3 mmol/L Critically high 3.5-5.1 [facility] Comment on above: Performed By: #### C MP ####[facility] Lnyoeepkgw7229 [place] [phone]. Airam Tripathi Protein [Mass/Vol] 6.7 g/dL Normal 6.4-8.2 [facility] Comment on above: Performed By: #### C MP ####[facility] Nqtgsrjtcg9509 [place] [phone]. Airam Tripathi Sodium [Moles/Vol] 135 mmol/L Critically low 136-145 [facility] Comment on above: Performed By: #### C MP ####[facility] Kpjizzecfq1890 [place] [phone]. Airam Tripathi Urea nitrogen [Mass/Vol] 42.0 mg/dL Critically high 7.0-18.0 [facility] Comment on above: Performed By: #### C MP ####[facility] Qhcocqoeta1311 [place] [address]Dr. Airam Tripathi Urea nitrogen/Creatinine [Mass ratio] 32.8 mg/mg Normal [facility] Comment on above: Performed By: #### C MP ####[facility] Vwvvebzjty0291 [place] [address]Dr. Airam Tripathi TROPONIN, HIGH SENSITIVITYon 09-19-2022 HSTROP 7.1 pg/mL Normal 4.0-51.3 [facility] Comment on above: Result Comment: CUT- OFF POINTS HAVE BEEN ESTABLISHED BASED ON THE FOURTH UNIVERSAL DEFINITIONS OF MYOCARDIALINFARCTION. THE UPPER REFERENCE LIMIT (URL) OF TROPONIN, DEFINED THE 99TH PERCENTILE OFcTnI DISTRIBUTION IN A REFERENCE POPULATION, HAS BEEN CONFIRMED THE DECISION THRESHOLDFOR ID DIAGNOSIS. Performed By: #### H STROPN, TSH, K, BNP ####[facility] Delqeybigc0027 [place] [address]Dr. Airam Tripathi TSHon 09-19-2022 TSH 0.028 uIU/mL Critically low 0.358-3.74 0 [facility] Comment on above: Performed By: #### H STROPN, TSH, K, BNP ####[facility] Afhawruwxr2944 [place] [address]Dr. Airam Tripathi UA RANDOMon 09-19-2022 Bilirubin Ql (U) Negative Normal NEGATIVE [facility] Comment on above: Performed By: #### U A ####[facility] Bhemmzblyd27[address] [place], [place] [address]Dr. Airam Tripathi Clarity (U) CLEAR Normal CLEAR [facility] Comment on above: Performed By: #### U A ####[facility] Bcgoxmagqy2180 [place] [address]Dr. Airam Tripathi Color (U) LT. YELLOW Normal YELLOW [facility] Comment on above: Performed By: #### U A ####[facility] Uocfzvrdsm5826 [place] [address]Dr. Airam Tripathi Glucose Ql (U) Negative Normal NEGATIVE [facility] Comment on above: Performed By: #### U A ####[facility] Hpbycvwizm430[address] [place], [place] [address]Dr. Airam Tripathi Hemoglobin Ql (U) Negative Normal NEGATIVE [facility] Comment on above: Performed By: #### U A ####[facility] Tiqfysolrd717[address] [place], [place] [address]Dr. Airam Tripathi Ketones Ql (U) Negative Normal NEGATIVE [facility] Comment on above: Performed By: #### U A ####[facility] Zpfsezltvq139[address] [place], [place] [address]Dr. Airam Tripathi LEUKOCYTES TRACE Abnormal NEGATIVE [facility] Comment on above: Performed By: #### U A ####[facility] Ooxmdzdfhd117[address] [place], [place] [address]Dr. Airam Tripathi Nitrite Ql (U) Negative Normal NEGATIVE [facility] Comment on above: Performed By: #### U A ####[facility] Nwclsvmipr110[address] [place], [place] [address]Dr. Airam Tripathi pH (U) 5.5 [pH] Normal 5-9 [facility] Comment on above: Performed By: #### U A ####[facility] Aagbfuhvee065[address] [place], [place] [address]Dr. Airam Tripathi SPEC GRAVITY 1.010 Normal 1.005-<=1. 025 [facility] Comment on above: Performed By: #### U A ####[facility] Ipbksmednh2489[address] [place], [place] [address]Dr. Airam Tripathi UA PROTEIN Negative Normal NEGATIVE/ TRACE [facility] Comment on above: Performed By: #### U A ####[facility] Pcflwudocd844[address] [place], [place] [address]Dr. Airam Tripathi Urobilinogen Qn (U) 0.2 {Ligia'U}/dL Normal 0.2 - 1. 0 [facility] Comment on above: Performed By: #### U A ####[facility] Apdzsotgqi7402 [place] [address]Dr. Airam Tripathi URIC ACID SERUMon 09-19-2022 Urate [Mass/Vol] 6.9 mg/dL Critically high 2.6-6.0 [facility] Comment on above: Performed By: #### U TRESSA ####[facility] Peorigmdpi2739[address] [place], [place] [address]Dr. Airam Tripathi URINE T PROTEIN CREAT RATIOo n 09-19-2022 UR TOTAL PROTEIN <6.0 Normal <=12.0 [facility] Comment on above: Performed By: #### U RTPCR ####[facility] Yxejmdmemj7764[address] [place], [place] [address]Dr. Airam Tripathi URINE CREAT 15.12 mg/dL Critically low 20.00-300. 00 [facility] Comment on above: Performed By: #### U RTPCR ####[facility] Whymxhjpxv2294[address] [place], [place] [address]Dr. Airam Tripathi VITAMIN D 25 OHon 09-19-2022 VIT D 25-OH 75.9 ng/mL Normal [facility] Comment on above: Performed By: #### V ITAD ####[facility] Kksoukadar2039[address] [place], [place] [address]Dr. Airam Tripathi VIT D RANGES SEE BELOW Normal [facility] Comment on above: Result Comment: <20 ng/mL Vit D deficient 20 - <30 ng/mL Vit D insufficient 30 - 100 ng/mL Vit D sufficient >100 ng/mL Potential Toxicity Performed By: #### V ITAD ####[facility] Typrirqqbq618[address] [place], [place] [address]Dr. Airam Tripathi OSMOLALITYon 09-14-2022 Osmolality [Osmolality] 272 mosm/kg Critically low 275-295 [facility] Comment on above: Performed By: #### O SMO ####[facility] Ukzmgedkre4620[address] [place], [place] [address]Dr. Airam Tripathi CBC AUTO DIFFon 09-12-2022 BASO # 0.0 103/ul Normal 0.0-0.1 [facility] Comment on above: Performed By: #### C BC ####[facility] Hlemyxohxu7634 [place] [phone]. Airam Tripathi Basophils/100 WBC (Bld) 0.5 % Normal 0.2-2.0 [facility] Comment on above: Performed By: #### C BC ####[facility] Sqtppndikt[address] [place], [place] [address]Dr. Airam Tripathi EO # 0.2 103/ul Normal 0.0-0.7 [facility] Comment on above: Performed By: #### C BC ####[facility] Uzmjlamsjr6565[address] [place], [place] [address]Dr. Airam Tripathi Eosinophils/100 WBC (Bld) 2.4 % Normal 0.9-7.0 [facility] Comment on above: Performed By: #### C BC ####[facility] Fcwuvykksq57[address] [place], [place] [address]Dr. Airam Tripathi Erythrocyte distribution width (RBC) [Ratio] 14.8 % Normal 11.0-15.0 [facility] Comment on above: Performed By: #### C BC ####[facility] Bkmrykdtgw9440[address] [place], [place] [address]Dr. Airam Tripathi Hematocrit (Bld) [Volume fraction] 32.6 % Critically low 36.0-48.0 [facility] Comment on above: Performed By: #### C BC ####[facility] Tfzsfjczat2224[address] [place], [place] [address]Dr. Airam Tripathi Hemoglobin (Bld) [Mass/Vol] 10.1 g/dL Critically low 12.0-16.0 [facility] Comment on above: Performed By: #### C BC ####[facility] Iksciqmzgs258[address] [place], [place] [address]Dr. Airam Tripathi IG # 0.05 10e3/ul Critically high 0.00-0.03 [facility] Comment on above: Performed By: #### C BC ####[facility] Nuseabwsye7214[address] [place], [place] [address]Dr. Airam Tripathi IG % 0.7 % Critically high 0.0-0.5 [facility] Comment on above: Performed By: #### C BC ####[facility] Efrzfvunzg0617 [place] [phone]. Airam Deuce LYMPH # 1.9 103/ul Normal 1.2-3.8 [facility] Comment on above: Performed By: #### C BC ####[facility] Ighvupvlhq9307 [place] [phone]. Selenaneil Tripathi Lymphocytes/100 WBC (Bld) 24.7 % Normal 20.5-60.0 [facility] Comment on above: Performed By: #### C BC ####[facility] Kijqtufxhw18[address] [place], [place] [address]Dr. Airam Tripathi MANUAL DIFF REQ NO Normal [facility] Comment on above: Performed By: #### C BC ####[facility] Ktmemupwvd[address] [place], [place] [address]Dr. Airam Tripathi MCH (RBC) [Entitic mass] 28.0 pg Normal 26.7-34.0 [facility] Comment on above: Performed By: #### C BC ####[facility] Aaapmumtge95[address] [place], [place] [address]Dr. Airam Deuce MCHC (RBC) [Mass/Vol] 31.0 g/dL Normal 29.9-35.2 [facility] Comment on above: Performed By: #### C BC ####[facility] Mugitscgiu4930 [place] [address]Dr. Airam Tripathi MCV (RBC) [Entitic vol] 90.3 fL Normal 81.0-99.0 [facility] Comment on above: Performed By: #### C BC ####[facility] Ccqfqvogqa[address] [place], [place] [address]Dr. Airam Tripathi MONO # 0.5 103/ul Normal 0.3-0.8 [facility] Comment on above: Performed By: #### C BC ####[facility] Phnluqpenf[address] [place], [place] [address]Dr. Airam Tripathi Monocytes/100 WBC (Bld) 6.0 % Normal 1.7-12.0 [facility] Comment on above: Performed By: #### C BC ####[facility] Nhgwgbdnrw9988 [place] [phone]. Airam Tripathi NEUT # 5.0 103/ul Normal 1.4-6.5 [facility] Comment on above: Performed By: #### C BC ####[facility] Tefdouzsgm3384 [place] [phone]. Airam Tripathi Neutrophils/100 WBC (Bld) 65.7 % Normal 43.0-75.0 [facility] Comment on above: Performed By: #### C BC ####[facility] Rumcfxywjp4925 [place] [address]Dr. Airam Tripathi Platelet mean volume (Bld) [Entitic vol] 9.5 fL Normal 9.5-13.5 [facility] Comment on above: Performed By: #### C BC ####[facility] Kedudjvsgh8[address] [place], [place] [address]Dr. Airam Tripathi PLT 307 103/ul Normal 150-450 [facility] Comment on above: Performed By: #### C BC ####[facility] Vpybderjdw9499[address] [place], [place] [address]Dr. Selenaneil Deuce RBC 3.61 106/ul Critically low 4.20-5.40 [facility] Comment on above: Performed By: #### C BC ####[facility] Ptagwullph7[address] [place], [place] [address]Dr. Airam Tripathi WBC 7.5 103/ul Normal 4.0-11.0 [facility] Comment on above: Performed By: #### C BC ####[facility] Ulvcsltglw14[address] [place], [place] [address]Dr. Airam Tripathi PROF 14(COMP METB)on 023 Albumin [Mass/Vol] 3.5 g/dL Normal 3.4-5.0 [facility] Comment on above: Performed By: #### C MP ####[facility] Chwmckvooa[address] [place], [place] [address]Dr. Airam Tripathi Albumin/Globulin [Mass ratio] 1.1 {ratio} Normal [facility] Comment on above: Performed By: #### C MP ####[facility] Xgzbvnshay6642 [place] [address]Dr. Airam Tripathi ALP [Catalytic activity/Vol] 126 U/L Critically high 46-116 [facility] Comment on above: Performed By: #### C MP ####[facility] Ixpuyiwxwg4613 [place] [address]Dr. Airam Tripathi ALT [Catalytic activity/Vol] 18 U/L Normal 14-59 [facility] Comment on above: Performed By: #### C MP ####[facility] Qtctjyatzo65[address] [place], [place] [address]Dr. Airam Deuce Anion gap [Moles/Vol] 11.1 mmol/L Normal Th e [facility] Comment on above: Performed By: #### C MP ####[facility] Yhlvjpfylh[address] [place], [place] [address]Dr. Airam Deuce AST [Catalytic activity/Vol] 26 U/L Normal 15-37 [facility] Comment on above: Performed By: #### C MP ####[facility] Qyuskctphu8[address] [place], [place] [address]Dr. Airam Tripathi Bilirubin [Mass/Vol] 0.3 mg/dL Normal 0.2-1.0 [facility] Comment on above: Performed By: #### C MP ####[facility] Dnaubgwyzx210[address] [place], [place] [address]Dr. Airam Deuce Calcium [Mass/Vol] 8.5 mg/dL Normal 8.5-10.1 [facility] Comment on above: Performed By: #### C MP ####[facility] Mzgqiwtmiu9[address] [place], [place] [address]Dr. Airam Tripathi Chloride [Moles/Vol] 98 mmol/L Normal 98-107 [facility] Comment on above: Performed By: #### C MP ####[facility] Warpgywqvw354[address] [place], [place] [address]Dr. Airam Tripathi CO2 [Moles/Vol] 23.9 mmol/L Normal 21.0-32.0 [facility] Comment on above: Performed By: #### C MP ####[facility] Lelxpdqocf6570 [place] [phone]. Airam Tripathi Creatinine [Mass/Vol] 1.40 mg/dL Critically high 0.55-1.02 [facility] Comment on above: Performed By: #### C MP ####[facility] Fxwgwaiugf5194 [place] [phone]. Airam Tripathi EGFR-AF ISRAELI 46 mL/min/1.73m2 Critically low >=60 [facility] Comment on above: Performed By: #### C MP ####[facility] Gtzecdpfik1398 [place] [phone]. Airam Tripathi EGFR-NON AF ISRAELI 38 mL/min/1.73m2 Critically low >=60 [facility] Comment on above: Performed By: #### C MP ####[facility] Azfllzxmbm6898 [place] [phone]. Airam Tripathi Globulin (S) [Mass/Vol] 3.3 g/dL Normal [facility] Comment on above: Performed By: #### C MP ####[facility] Vhbejeqqep7251 [place] [phone]. Airam Tripathi Glucose [Mass/Vol] 72 mg/dL Critically low 74-106 Th [facility] Comment on above: Performed By: #### C MP ####[facility] Rbonyzwdru9383 [place] [phone]. Airam Tripathi Potassium [Moles/Vol] 5.0 mmol/L Normal 3.5-5.1 [facility] Comment on above: Performed By: #### C MP ####[facility] Camomkfrym9860 [place] [phone]. Airam Tripathi Protein [Mass/Vol] 6.8 g/dL Normal 6.4-8.2 [facility] Comment on above: Performed By: #### C MP ####[facility] Xkincysrka2502 [place] [phone]. Airam Tripathi Sodium [Moles/Vol] 128 mmol/L Critically low 136-145 Th [facility] Comment on above: Performed By: #### C MP ####[facility] Zvpzsifkpo[address] [place], [place] [address]Dr. Airam Tripathi Urea nitrogen [Mass/Vol] 27.0 mg/dL Critically high 7.0-18.0 [facility] Comment on above: Performed By: #### C MP ####[facility] Bblusdnanm[address] [place], [place] [address]Dr. Airam Tripathi Urea nitrogen/Creatinine [Mass ratio] 19.3 mg/mg Normal [facility] Comment on above: Performed By: #### C MP ####[facility] Vizpgvscwa5923[address] [place], [place] [address]Dr. Airam Tripathi OSMOLALITYon 09-10-2022 Osmolality [Osmolality] 275 mosm/kg Normal 275-295 [facility] Comment on above: Performed By: #### O SMO ####[facility] Xmotxnyixa058[address] [place], [place] [address]Dr. Airam Tripathi CBC AUTO DIFFon 09-08-2022 BASO # 0.0 103/ul Normal 0.0-0.1 [facility] Comment on above: Performed By: #### C BC ####[facility] Jvtpabpcne[address] [place], [place] [address]Dr. Airam Tripathi Basophils/100 WBC (Bld) 0.5 % Normal 0.2-2.0 [facility] Comment on above: Performed By: #### C BC ####[facility] Bvwijbpquy7[address] [place], [place] [address]Dr. Airam Tripathi EO # 0.1 103/ul Normal 0.0-0.7 [facility] Comment on above: Performed By: #### C BC ####[facility] Ognhopmcrw7478[address] [place], [place] [address]Dr. Airam Tripathi Eosinophils/100 WBC (Bld) 1.7 % Normal 0.9-7.0 [facility] Comment on above: Performed By: #### C BC ####[facility] Kdyksirtpt4387[address] [place], [place] [address]Dr. Airam Tripathi Erythrocyte distribution width (RBC) [Ratio] 14.7 % Normal 11.0-15.0 [facility] Comment on above: Performed By: #### C BC ####[facility] Duoapmewab1889 [place] [address]Dr. Airam Tripathi Hematocrit (Bld) [Volume fraction] 30.3 % Critically low 36.0-48.0 [facility] Comment on above: Performed By: #### C BC ####[facility] Jyvssdjvrm2530 [place] [address]DrKianna Airam Deuce Hemoglobin (Bld) [Mass/Vol] 9.3 g/dL Critically low 12.0-16.0 [facility] Comment on above: Performed By: #### C BC ####[facility] Hdhmwikako4413[address] [place], [place] [address]DrKianna Tripathi IG # 0.03 10e3/ul Normal 0.00-0.03 [facility] Comment on above: Performed By: #### C BC ####[facility] Njtvbxnhol0925[address] [place], [place] [address]DrKianna Tripathi IG % 0.5 % Normal 0.0-0.5 [facility] Comment on above: Performed By: #### C BC ####[facility] Kqftegxhdw3495[address] [place], [place] [address]DrKianna Airam Deuce LYMPH # 0.9 103/ul Critically low 1.2-3.8 [facility] Comment on above: Performed By: #### C BC ####[facility] Dlwsavotes136[address] [place], [place] [address]DrKianna Tripathi Lymphocytes/100 WBC (Bld) 13.6 % Critically low 20.5-60.0 [facility] Comment on above: Performed By: #### C BC ####[facility] Xiatdtvoub4184[address] [place], [place] [address]DrKianna Selenaneil Tripathi MANUAL DIFF REQ NO Normal [facility] Comment on above: Performed By: #### C BC ####[facility] Ztntgipnmk944[address] [place], [place] [address]DrKianna Tripathi MCH (RBC) [Entitic mass] 27.4 pg Normal 26.7-34.0 [facility] Comment on above: Performed By: #### C BC ####[facility] Bfmuitltni2440 [place] [phone]. Airam Tripathi MCHC (RBC) [Mass/Vol] 30.7 g/dL Normal 29.9-35.2 [facility] Comment on above: Performed By: #### C BC ####[facility] Tbfixetchi6653 [place] [phone]. Airam Tripathi MCV (RBC) [Entitic vol] 89.4 fL Normal 81.0-99.0 [facility] Comment on above: Performed By: #### C BC ####[facility] Xvbykxzdoq58[address] [place], [place] [address]Dr. Airam Tripathi MONO # 0.5 103/ul Normal 0.3-0.8 [facility] Comment on above: Performed By: #### C BC ####[facility] Kkvafdjzfu637[address] [place], [place] [address]Dr. Airam Tripathi Monocytes/100 WBC (Bld) 8.0 % Normal 1.7-12.0 [facility] Comment on above: Performed By: #### C BC ####[facility] Ttnpjuxozx2757[address] [place], [place] [address]Dr. Airam Tripathi NEUT # 5.0 103/ul Normal 1.4-6.5 [facility] Comment on above: Performed By: #### C BC ####[facility] Hvhfralmne9420[address] [place], [place] [address]DrKianna Tripathi Neutrophils/100 WBC (Bld) 75.7 % Critically high 43.0-75.0 [facility] Comment on above: Performed By: #### C BC ####[facility] Cmkeddhjtj11[address] [place], [place] [address]DrKianna Tripathi Platelet mean volume (Bld) [Entitic vol] 10.4 fL Normal 9.5-13.5 [facility] Comment on above: Performed By: #### C BC ####[facility] Racdajymdq1380[address] [place], [place] [address]Dr. Airam Tripathi PLT 315 103/ul Normal 150-450 [facility] Comment on above: Performed By: #### C BC ####[facility] Oihnnrzndr2075 [place] [address]Dr. Airam Tripathi RBC 3.39 106/ul Critically low 4.20-5.40 [facility] Comment on above: Performed By: #### C BC ####[facility] Eexwhpgquo5839 [place] [address]Dr. Airam Tripathi WBC 6.5 103/ul Normal 4.0-11.0 [facility] Comment on above: Performed By: #### C BC ####[facility] Hkxvtsascm6300 [place] [address]Dr. Airam Tripathi PROF 14(COMP METB)on 023 Albumin [Mass/Vol] 3.1 g/dL Critically low 3.4-5.0 [facility] Comment on above: Performed By: #### C MP ####[facility] Kcinhmvdla404345 [address] [place], [place] [address]Dr. Airam Tripathi Albumin/Globulin [Mass ratio] 1.0 {ratio} Normal [facility] Comment on above: Performed By: #### C MP ####[facility] Svstinagkh9813[address] [place], [place] [address]Dr. Airam Tripathi ALP [Catalytic activity/Vol] 126 U/L Critically high 46-116 [facility] Comment on above: Performed By: #### C MP ####[facility] Cndaehyduc664[address] [place], [place] [address]Dr. Airam Tripathi ALT [Catalytic activity/Vol] 18 U/L Normal 14-59 [facility] Comment on above: Performed By: #### C MP ####[facility] Jusclvhqgr839[address] [place], [place] [address]Dr. Airam Tripathi Anion gap [Moles/Vol] 11.4 mmol/L Normal [facility] Comment on above: Performed By: #### C MP ####[facility] Eaostwdknu644[address] [place], [place] [address]Dr. Airam Tripathi AST [Catalytic activity/Vol] 25 U/L Normal 15-37 [facility] Comment on above: Performed By: #### C MP ####[facility] Ogloacthvv4234 [place] [address]Dr. Airam Tripathi Bilirubin [Mass/Vol] 0.3 mg/dL Normal 0.2-1.0 [facility] Comment on above: Performed By: #### C MP ####[facility] Elxjmipkhw4579 [place] [address]Dr. Airam Tripathi Calcium [Mass/Vol] 8.6 mg/dL Normal 8.5-10.1 [facility] Comment on above: Performed By: #### C MP ####[facility] Gmzltqbtpg1743 [place] [address]Dr. Airam Tripathi Chloride [Moles/Vol] 97 mmol/L Critically low 98-107 [facility] Comment on above: Performed By: #### C MP ####[facility] Mdvefzaeoi907545 [address] [place], [place] [address]Dr. Airam Tripathi CO2 [Moles/Vol] 26.1 mmol/L Normal 21.0-32.0 [facility] Comment on above: Performed By: #### C MP ####[facility] Bnzombcqyp5839[address] [place], [place] [address]Dr. Airam Tripathi Creatinine [Mass/Vol] 1.07 mg/dL Critically high 0.55-1.02 [facility] Comment on above: Performed By: #### C MP ####[facility] Nqvcqghvsp6120[address] [place], [place] [address]Dr. Airam Deuce EGFR-AF ISRAELI >60 Normal >=60 [facility] Comment on above: Performed By: #### C MP ####[facility] Xvvvycnuat2037[address] [place], [place] [address]Dr. Airam Deuce EGFR-NON AF ISRAELI 52 mL/min/1.73m2 Critically low >=60 [facility] Comment on above: Performed By: #### C MP ####[facility] Kxntuixpgx9929[address] [place], [place] [address]Dr. Airam Deuce Globulin (S) [Mass/Vol] 3.2 g/dL Normal [facility] Comment on above: Performed By: #### C MP ####[facility] Ofrnitcrxy1193 [place] [phone]. Airam Tripathi Glucose [Mass/Vol] 83 mg/dL Normal 74-106 [facility] Comment on above: Performed By: #### C MP ####[facility] Fmhzrwqzcs2947 [place] [address]Dr. Airam Tripathi Potassium [Moles/Vol] 5.5 mmol/L Critically high 3.5-5.1 [facility] Comment on above: Performed By: #### C MP ####[facility] Sdwikrtkhc4796 [place] [address]Dr. Airam Tripathi Protein [Mass/Vol] 6.3 g/dL Critically low 6.4-8.2 [facility] Comment on above: Performed By: #### C MP ####[facility] Cmdzcwakfo632[address] [place], [place] [address]Dr. Airam Tripathi Sodium [Moles/Vol] 129 mmol/L Critically low 136-145 [facility] Comment on above: Performed By: #### C MP ####[facility] Binpfxduxf046245 [address] [place], [place] [address]Dr. Airam Tripathi Urea nitrogen [Mass/Vol] 37.0 mg/dL Critically high 7.0-18.0 [facility] Comment on above: Performed By: #### C MP ####[facility] Sqnealxfus3770[address] [place], [place] [address]Dr. Airam Tripathi Urea nitrogen/Creatinine [Mass ratio] 34.6 mg/mg Normal [facility] Comment on above: Performed By: #### C MP ####[facility] Dyrzvyyevx1336 [place] [address]Dr. Airam Tripathi OSMOLALITYon 09-02-2022 Osmolality [Osmolality] 279 mosm/kg Normal 275-295 [facility] Comment on above: Performed By: #### O SMO ####[facility] Anrhyxaukh5270[address] [place], [place] [address]Dr. Airam Tripathi CBC AUTO DIFFon 08-31-2022 BASO # 0.0 103/ul Normal 0.0-0.1 [facility] Comment on above: Performed By: #### C BC ####[facility] Jdblnqtfwl6403 [place] [phone]. Airam Tripathi Basophils/100 WBC (Bld) 0.4 % Normal 0.2-2.0 [facility] Comment on above: Performed By: #### C BC ####[facility] Uxgewqmycj1947 [place] [address]Dr. Airam Tripathi EO # 0.2 103/ul Normal 0.0-0.7 [facility] Comment on above: Performed By: #### C BC ####[facility] Jkolclkqwl3138[address] [place], [place] [address]Dr. Airam Tripathi Eosinophils/100 WBC (Bld) 3.2 % Normal 0.9-7.0 [facility] Comment on above: Performed By: #### C BC ####[facility] Dezewsluwt923[address] [place], [place] [address]Dr. Airam Tripathi Erythrocyte distribution width (RBC) [Ratio] 14.4 % Normal 11.0-15.0 [facility] Comment on above: Performed By: #### C BC ####[facility] Blfilovqtm483[address] [place], [place] [address]Dr. Airam Tripathi Hematocrit (Bld) [Volume fraction] 27.8 % Critically low 36.0-48.0 [facility] Comment on above: Performed By: #### C BC ####[facility] Jjraxiupgu64[address] [place], [place] [address]Dr. Airam Tripathi Hemoglobin (Bld) [Mass/Vol] 8.7 g/dL Critically low 12.0-16.0 [facility] Comment on above: Performed By: #### C BC ####[facility] Evlrdgiyla050[address] [place], [place] [address]Dr. Airam Tripathi IG # 0.05 10e3/ul Critically high 0.00-0.03 [facility] Comment on above: Performed By: #### C BC ####[facility] Osbjqjaist413[address] [place], [place] [address]Dr. Airam Tripathi IG % 0.7 % Critically high 0.0-0.5 [facility] Comment on above: Performed By: #### C BC ####[facility] Nzocdmakcd6788 [place] [phone]. Airam Deuce LYMPH # 1.7 103/ul Normal 1.2-3.8 [facility] Comment on above: Performed By: #### C BC ####[facility] Mtwarmeizs4227 [place] [phone]. Airam Tripathi Lymphocytes/100 WBC (Bld) 23.6 % Normal 20.5-60.0 [facility] Comment on above: Performed By: #### C BC ####[facility] Stbmdbyxrj4171 [place] [address]Dr. Airam Tripathi MANUAL DIFF REQ NO Normal [facility] Comment on above: Performed By: #### C BC ####[facility] Biyhvqprda8243 [place] [address]Dr. Airam Tripathi MCH (RBC) [Entitic mass] 27.8 pg Normal 26.7-34.0 [facility] Comment on above: Performed By: #### C BC ####[facility] Hjrwatmybe6291 [place] [address]Dr. Selenaneil Tripathi MCHC (RBC) [Mass/Vol] 31.3 g/dL Normal 29.9-35.2 [facility] Comment on above: Performed By: #### C BC ####[facility] Dfbnckqjmf3431 [place] [phone]. Airam Tripathi MCV (RBC) [Entitic vol] 88.8 fL Normal 81.0-99.0 [facility] Comment on above: Performed By: #### C BC ####[facility] Mmqwqijrqh6980 [place] [phone]. Airam Tripathi MONO # 0.5 103/ul Normal 0.3-0.8 [facility] Comment on above: Performed By: #### C BC ####[facility] Uzlhqmpqlt1079 [place] [phone]. Airam Tripathi Monocytes/100 WBC (Bld) 6.9 % Normal 1.7-12.0 [facility] Comment on above: Performed By: #### C BC ####[facility] Aqxetjjmtn3022 [place] [phone]. Airam Tripathi NEUT # 4.7 103/ul Normal 1.4-6.5 [facility] Comment on above: Performed By: #### C BC ####[facility] Gfcfrbkmjz5215 [place] [phone]. Selenaneil Deuce Neutrophils/100 WBC (Bld) 65.2 % Normal 43.0-75.0 [facility] Comment on above: Performed By: #### C BC ####[facility] Iqjjvyuybz3555 [place] [phone]. Airam Tripathi Platelet mean volume (Bld) [Entitic vol] 9.8 fL Normal 9.5-13.5 [facility] Comment on above: Performed By: #### C BC ####[facility] Rguhgbgglt3202 [place] [address]Dr. Airam Tripathi PLT 225 103/ul Normal 150-450 [facility] Comment on above: Performed By: #### C BC ####[facility] Rbhbpiuriq2265 [place] [phone]. Airam Tripathi RBC 3.13 106/ul Critically low 4.20-5.40 [facility] Comment on above: Performed By: #### C BC ####[facility] Bfuelejlxk1496 [place] [phone] Tripathi WBC 7.3 103/ul Normal 4.0-11.0 [facility] Comment on above: Performed By: #### C BC ####[facility] Jfclvkpjxx0246 [place] [phone] Tripathi PROF 14(COMP METB)on 023 Albumin [Mass/Vol] 3.0 g/dL Critically low 3.4-5.0 [facility] Comment on above: Performed By: #### C MP ####[facility] Ptwglhtquy4971 [place] [phone] Tripathi Albumin/Globulin [Mass ratio] 1.1 {ratio} Normal [facility] Comment on above: Performed By: #### C MP ####[facility] Nzkhfjicds2220 [place] [address]Dr. Airam Tripathi ALP [Catalytic activity/Vol] 132 U/L Critically high 46-116 [facility] Comment on above: Performed By: #### C MP ####[facility] Fnnbooijso7129 [place] [address]Dr. Airam Deuce ALT [Catalytic activity/Vol] 20 U/L Normal 14-59 [facility] Comment on above: Performed By: #### C MP ####[facility] Hlbonlhubs8175 [place] [address]Dr. Airam Tripathi Anion gap [Moles/Vol] 9.5 mmol/L Normal [facility] Comment on above: Performed By: #### C MP ####[facility] Qssxfspsih9207[address] [place], [place] [address]Dr. Airam Tripathi AST [Catalytic activity/Vol] 25 U/L Normal 15-37 [facility] Comment on above: Performed By: #### C MP ####[facility] Pmhkceitts919[address] [place], [place] [address]Dr. Airam Tripathi Bilirubin [Mass/Vol] 0.2 mg/dL Normal 0.2-1.0 [facility] Comment on above: Performed By: #### C MP ####[facility] Kbztwbedwy26[address] [place], [place] [address]Dr. Airam Tripathi Calcium [Mass/Vol] 7.9 mg/dL Critically low 8.5-10.1 Th [facility] Comment on above: Performed By: #### C MP ####[facility] Lzntvuakdo733[address] [place], [place] [address]Dr. Airam Tripathi Chloride [Moles/Vol] 97 mmol/L Critically low 98-107 [facility] Comment on above: Performed By: #### C MP ####[facility] Rseuoofbky3398[address] [place], [place] [address]Dr. Airam Tripathi CO2 [Moles/Vol] 27.3 mmol/L Normal 21.0-32.0 [facility] Comment on above: Performed By: #### C MP ####[facility] Rbgyyuwvvo6028 [place] [phone]. Airam Tripathi Creatinine [Mass/Vol] 1.58 mg/dL Critically high 0.55-1.02 [facility] Comment on above: Performed By: #### C MP ####[facility] Yohjpcomzj4716 [place] [phone]. Airam Tripathi EGFR-AF ISRAELI 40 mL/min/1.73m2 Critically low >=60 [facility] Comment on above: Performed By: #### C MP ####[facility] Tjvanbnpwe1069 [place] [phone]. Airam Deuce EGFR-NON AF ISRAELI 33 mL/min/1.73m2 Critically low >=60 [facility] Comment on above: Performed By: #### C MP ####[facility] Ewzttykjzi2793 [place] [address]Dr. iAram Deuce Globulin (S) [Mass/Vol] 2.8 g/dL Normal [facility] Comment on above: Performed By: #### C MP ####[facility] Ersuryyomw5420 [place] [address]Dr. Airam Deuce Glucose [Mass/Vol] 111 mg/dL Critically high 74-106 [facility] Comment on above: Performed By: #### C MP ####[facility] Dapfduevwp6540 [place] [address]Dr. Airam Deuce Potassium [Moles/Vol] 4.8 mmol/L Normal 3.5-5.1 [facility] Comment on above: Performed By: #### C MP ####[facility] Pjxfhiatsp8483 [place] [address]Dr. Airam Deuce Protein [Mass/Vol] 5.8 g/dL Critically low 6.4-8.2 Th [facility] Comment on above: Performed By: #### C MP ####[facility] Ejgvztrcpq3524 [place] [address]Dr. Selenaneil Tripathi Sodium [Moles/Vol] 129 mmol/L Critically low 136-145 Th [facility] Comment on above: Performed By: #### C MP ####[facility] Xazuqcnmcl34[address] [place], [place] [address]Dr. Airam Tripathi Urea nitrogen [Mass/Vol] 44.0 mg/dL Critically high 7.0-18.0 [facility] Comment on above: Performed By: #### C MP ####[facility] Eaqnovrkkp7237[address] [place], [place] [address]Dr. Airam Tripathi Urea nitrogen/Creatinine [Mass ratio] 27.8 mg/mg Normal [facility] Comment on above: Performed By: #### C MP ####[facility] Lkbhudtpnc4038[address] [place], [place] [address]Dr. Airam Tripathi OSMOLALITYon 08-28-2022 Osmolality [Osmolality] 288 mosm/kg Normal 275-295 [facility] Comment on above: Performed By: #### O SMO ####[facility] Mlqksrumsf722[address] [place], [place] [address]Dr. Airam Tripathi CBC AUTO DIFFon 08-25-2022 BASO # 0.0 103/ul Normal 0.0-0.1 [facility] Comment on above: Performed By: #### C BC ####[facility] Vajqhkfqxc075[address] [place], [place] [address]Dr. Airam Deuce Basophils/100 WBC (Bld) 0.5 % Normal 0.2-2.0 [facility] Comment on above: Performed By: #### C BC ####[facility] Vzvcvebvcg2414[address] [place], [place] [address]Dr. Airam Tripathi EO # 0.4 103/ul Normal 0.0-0.7 [facility] Comment on above: Performed By: #### C BC ####[facility] Fcxhmwtckq646[address] [place], [place] [address]Dr. Airam Deuce Eosinophils/100 WBC (Bld) 4.8 % Normal 0.9-7.0 [facility] Comment on above: Performed By: #### C BC ####[facility] Zlqgyofoaq1129[address] [place], [place] [address]Dr. Airam Deuce Erythrocyte distribution width (RBC) [Ratio] 14.2 % Normal 11.0-15.0 [facility] Comment on above: Performed By: #### C BC ####[facility] Luxauckckl9647 [place] [address]Dr. Airam Tripathi Hematocrit (Bld) [Volume fraction] 31.1 % Critically low 36.0-48.0 [facility] Comment on above: Performed By: #### C BC ####[facility] Ttypwzmmas0904[address] [place], [place] [address]DrKianna Tripathi Hemoglobin (Bld) [Mass/Vol] 9.7 g/dL Critically low 12.0-16.0 [facility] Comment on above: Performed By: #### C BC ####[facility] Bwodyvypam96[address] [place], [place] [address]DrKianna Tripathi IG # 0.05 10e3/ul Critically high 0.00-0.03 [facility] Comment on above: Performed By: #### C BC ####[facility] Jmwehpskeg115[address] [place], [place] [address]DrKianna Tripathi IG % 0.6 % Critically high 0.0-0.5 [facility] Comment on above: Performed By: #### C BC ####[facility] Bftvxysair[address] [place], [place] [address]DrKianna Tripathi LYMPH # 1.7 103/ul Normal 1.2-3.8 [facility] Comment on above: Performed By: #### C BC ####[facility] Ywwawvimrq0104[address] [place], [place] [address]DrKianna Tripathi Lymphocytes/100 WBC (Bld) 19.6 % Critically low 20.5-60.0 [facility] Comment on above: Performed By: #### C BC ####[facility] Pxyvizlaow84[address] [place], [place] [address]DrKianna Tripathi MANUAL DIFF REQ NO Normal [facility] Comment on above: Performed By: #### C BC ####[facility] Xzsaasbzzv73[address] [place], [place] [address]DrKianna Tripathi MCH (RBC) [Entitic mass] 28.2 pg Normal 26.7-34.0 [facility] Comment on above: Performed By: #### C BC ####[facility] Yblaittslp[address] [place] [address]Dr. Airam Tripathi MCHC (RBC) [Mass/Vol] 31.2 g/dL Normal 29.9-35.2 [facility] Comment on above: Performed By: #### C BC ####[facility] Tfshgqvgve2594 [place] [address]Dr. Airam Tripathi MCV (RBC) [Entitic vol] 90.4 fL Normal 81.0-99.0 [facility] Comment on above: Performed By: #### C BC ####[facility] Flvzvkwqki[address] [place], [place] [address]Dr. Airam Tripathi MONO # 0.6 103/ul Normal 0.3-0.8 [facility] Comment on above: Performed By: #### C BC ####[facility] Ymcychbchb487[address] [place], [place] [address]Dr. Airam Tripathi Monocytes/100 WBC (Bld) 7.4 % Normal 1.7-12.0 [facility] Comment on above: Performed By: #### C BC ####[facility] Yrwsmyiexi9037[address] [place], [place] [address]Dr. Airam Tripathi NEUT # 5.8 103/ul Normal 1.4-6.5 [facility] Comment on above: Performed By: #### C BC ####[facility] Zxwfqpejky49[address] [place], [place] [address]Dr. Airam Tripathi Neutrophils/100 WBC (Bld) 67.1 % Normal 43.0-75.0 [facility] Comment on above: Performed By: #### C BC ####[facility] Dwmpzhsbjm75[address] [place], [place] [address]Dr. Airam Tripathi Platelet mean volume (Bld) [Entitic vol] 9.9 fL Normal 9.5-13.5 [facility] Comment on above: Performed By: #### C BC ####[facility] Nxhzsmggvk7[address] [place], [place] [address]Dr. Airam Tripathi PLT 320 103/ul Normal 150-450 [facility] Comment on above: Performed By: #### C BC ####[facility] Dnjblvoido9316 [place] [address]Dr. Selenaneil Deuce RBC 3.44 106/ul Critically low 4.20-5.40 [facility] Comment on above: Performed By: #### C BC ####[facility] Utrzvfavfm9[address] [place] [phone]. Airam Tripathi WBC 8.6 103/ul Normal 4.0-11.0 [facility] Comment on above: Performed By: #### C BC ####[facility] Hijfxyzmhb3295 [place] [address]DrKianna Tripathi PROF 14(COMP METB)on 023 Albumin [Mass/Vol] 3.4 g/dL Normal 3.4-5.0 [facility] Comment on above: Performed By: #### C MP ####[facility] Jlfdhymwme4789 [place] [address]DrKianna Tripathi Albumin/Globulin [Mass ratio] 1.1 {ratio} Normal [facility] Comment on above: Performed By: #### C MP ####[facility] Tfzkhelbbh2080 [place] [address]DrKianna Tripathi ALP [Catalytic activity/Vol] 170 U/L Critically high 46-116 [facility] Comment on above: Performed By: #### C MP ####[facility] Bdhwhljkgt7146 [place] [address]DrKianna Tripathi ALT [Catalytic activity/Vol] 22 U/L Normal 14-59 [facility] Comment on above: Performed By: #### C MP ####[facility] Huogfrojxj74[address] [place] [phone] Tripathi Anion gap [Moles/Vol] 14.4 mmol/L Normal Th e [facility] Comment on above: Performed By: #### C MP ####[facility] Mbmvvhxsbe3969 [place] [address]DrKianna Tripathi AST [Catalytic activity/Vol] 25 U/L Normal 15-37 [facility] Comment on above: Performed By: #### C MP ####[facility] Xhesvnznnf1332 [place] [phone]. Airam Tripathi Bilirubin [Mass/Vol] 0.3 mg/dL Normal 0.2-1.0 [facility] Comment on above: Performed By: #### C MP ####[facility] Devfsqagcy2686 [place] [phone]. Airam Tripathi Calcium [Mass/Vol] 8.2 mg/dL Critically low 8.5-10.1 [facility] Comment on above: Performed By: #### C MP ####[facility] Btbpjlpdvb7321 [place] [address]Dr. Airam Tripathi Chloride [Moles/Vol] 98 mmol/L Normal 98-107 [facility] Comment on above: Performed By: #### C MP ####[facility] Oryxrntsqk8[address] [place], [place] [address]Dr. Airam Deuce CO2 [Moles/Vol] 27.8 mmol/L Normal 21.0-32.0 [facility] Comment on above: Performed By: #### C MP ####[facility] Efqtocfczj[address] [place], [place] [address]Dr. Airam Deuce Creatinine [Mass/Vol] 1.82 mg/dL Critically high 0.55-1.02 [facility] Comment on above: Performed By: #### C MP ####[facility] Pazlikiapy1598 [place] [address]Dr. Airam Deuce EGFR-AF ISRAELI 34 mL/min/1.73m2 Critically low >=60 [facility] Comment on above: Performed By: #### C MP ####[facility] Whzcbwiitu[address] [place], [place] [address]Dr. Airam Deuce EGFR-NON AF ISRAELI 28 mL/min/1.73m2 Critically low >=60 [facility] Comment on above: Performed By: #### C MP ####[facility] Bujtearzcq[address] [place], [place] [address]Dr. Selenaneil Deuce Globulin (S) [Mass/Vol] 3.2 g/dL Normal [facility] Comment on above: Performed By: #### C MP ####[facility] Isacguduqu99[address] [place] [address]Dr. iAram Tripathi Glucose [Mass/Vol] 78 mg/dL Normal 74-106 [facility] Comment on above: Performed By: #### C MP ####[facility] Ziyxldefvj7011 [place] [phone]. Airam Tripathi Potassium [Moles/Vol] 5.2 mmol/L Critically high 3.5-5.1 [facility] Comment on above: Performed By: #### C MP ####[facility] Stctdhwbdf9992 [place] [address]Dr. Airam Tripathi Protein [Mass/Vol] 6.6 g/dL Normal 6.4-8.2 [facility] Comment on above: Performed By: #### C MP ####[facility] Ejgszyvrgv14[address] [place], [place] [address]Dr. Airam Tripathi Sodium [Moles/Vol] 135 mmol/L Critically low 136-145 Th [facility] Comment on above: Performed By: #### C MP ####[facility] Kyskthcrlx98[address] [place], [place] [address]Dr. Airam Tripathi Urea nitrogen [Mass/Vol] 51.0 mg/dL Critically high 7.0-18.0 [facility] Comment on above: Performed By: #### C MP ####[facility] Zyooyhdzzi[address] [place], [place] [address]Dr. Airam Tripathi Urea nitrogen/Creatinine [Mass ratio] 28.0 mg/mg Normal [facility] Comment on above: Performed By: #### C MP ####[facility] Gmvhwkdcyw2088 [place] [phone]. Airam Deuce OSMOLALITYon 08-18-2022 Osmolality [Osmolality] 280 mosm/kg Normal 275-295 [facility] Comment on above: Performed By: #### O SMO ####[facility] Oqyhfrepwp12[address] [place], [place] [address]Dr. Airam Deuce CBC AUTO DIFFon 08-16-2022 BASO # 0.0 103/ul Normal 0.0-0.1 [facility] Comment on above: Performed By: #### C BC ####[facility] Ojezhvdrfj248[address] [place], [place] [address]DrKianna Tripathi Basophils/100 WBC (Bld) 0.2 % Normal 0.2-2.0 [facility] Comment on above: Performed By: #### C BC ####[facility] Pefeteuzcf844[address] [place], [place] [address]DrKianna Tripathi EO # 0.2 103/ul Normal 0.0-0.7 [facility] Comment on above: Performed By: #### C BC ####[facility] Vvgqqelebn971145 [address] [place], [place] [address]Dr. Airam Tripathi Eosinophils/100 WBC (Bld) 2.4 % Normal 0.9-7.0 [facility] Comment on above: Performed By: #### C BC ####[facility] Ohqsugxbom6327[address] [place], [place] [address]DrKianna Tripathi Erythrocyte distribution width (RBC) [Ratio] 14.2 % Normal 11.0-15.0 [facility] Comment on above: Performed By: #### C BC ####[facility] Eoyccamndo[address] [place], [place] [address]Dr. Airam Tripathi Hematocrit (Bld) [Volume fraction] 30.1 % Critically low 36.0-48.0 [facility] Comment on above: Performed By: #### C BC ####[facility] Gijacwduen35364[address] [place], [place] [address]Dr. Airam Tripathi Hemoglobin (Bld) [Mass/Vol] 9.2 g/dL Critically low 12.0-16.0 [facility] Comment on above: Performed By: #### C BC ####[facility] Esyclokenr65[address] [place], [place] [address]DrKianna Tripathi IG # 0.04 10e3/ul Critically high 0.00-0.03 [facility] Comment on above: Performed By: #### C BC ####[facility] Eyxhnjsyta7099[address] [place], [place] [address]DrKianna Tripathi IG % 0.4 % Normal 0.0-0.5 [facility] Comment on above: Performed By: #### C BC ####[facility] Tqmczyocwg1656 [place] [address]DrKianna Tripathi LYMPH # 0.9 103/ul Critically low 1.2-3.8 [facility] Comment on above: Performed By: #### C BC ####[facility] Pkxttkywaw5265 [place] [address]DrKianna Tripathi Lymphocytes/100 WBC (Bld) 9.3 % Critically low 20.5-60.0 [facility] Comment on above: Performed By: #### C BC ####[facility] Xigyswzojv[address] [place], [place] [address]DrKianna Tripathi MANUAL DIFF REQ NO Normal [facility] Comment on above: Performed By: #### C BC ####[facility] Ejsqnkpqff33[address] [place], [place] [address]DrKianna Tripathi MCH (RBC) [Entitic mass] 27.7 pg Normal 26.7-34.0 [facility] Comment on above: Performed By: #### C BC ####[facility] Skzjlrlfwc[address] [place], [place] [address]DrKianna Tripathi MCHC (RBC) [Mass/Vol] 30.6 g/dL Normal 29.9-35.2 [facility] Comment on above: Performed By: #### C BC ####[facility] Iiebfrdelf6[address] [place], [place] [address]DrKianna Tripathi MCV (RBC) [Entitic vol] 90.7 fL Normal 81.0-99.0 [facility] Comment on above: Performed By: #### C BC ####[facility] Rwvtjofdzy[address] [place], [place] [address]DrKianna Tripathi MONO # 0.5 103/ul Normal 0.3-0.8 [facility] Comment on above: Performed By: #### C BC ####[facility] Mlaxinutty[address] [place], [place] [address]DrKianna Tripathi Monocytes/100 WBC (Bld) 5.3 % Normal 1.7-12.0 [facility] Comment on above: Performed By: #### C BC ####[facility] Emswqoxson39[address] [place] [address]Dr. Airam Tripathi NEUT # 7.7 103/ul Critically high 1.4-6.5 [facility] Comment on above: Performed By: #### C BC ####[facility] Brlibyvndz5922 [place] [address]Dr. Airam Tripathi Neutrophils/100 WBC (Bld) 82.4 % Critically high 43.0-75.0 [facility] Comment on above: Performed By: #### C BC ####[facility] Bbnfsfmpre23[address] [place], [place] [address]Dr. Airam Tripathi Platelet mean volume (Bld) [Entitic vol] 9.8 fL Normal 9.5-13.5 [facility] Comment on above: Performed By: #### C BC ####[facility] Mvhtlbrfib114[address] [place], [place] [address]Dr. Airam Tripathi PLT 285 103/ul Normal 150-450 [facility] Comment on above: Performed By: #### C BC ####[facility] Sqnrsqxaey405[address] [place], [place] [address]Dr. Airam Tripathi RBC 3.32 106/ul Critically low 4.20-5.40 [facility] Comment on above: Performed By: #### C BC ####[facility] Whyejedrlo5499[address] [place], [place] [address]Dr. Airam Tripathi WBC 9.4 103/ul Normal 4.0-11.0 [facility] Comment on above: Performed By: #### C BC ####[facility] Hlskrpqtrn04[address] [place], [place] [address]Dr. Airam Tripathi MRI WRIST RT WO CONon 2022 MRI WRIST RT WO CON Normal [facility] PROF 14(COMP METB)on 023 Albumin [Mass/Vol] 3.1 g/dL Critically low 3.4-5.0 Th [facility] Comment on above: Performed By: #### C MP ####[facility] Phmmecxzdt23[address] [place] [phone]. Airam Tripathi Albumin/Globulin [Mass ratio] 0.9 {ratio} Normal [facility] Comment on above: Performed By: #### C MP ####[facility] Trbijeqyyh76[address] [place] [phone]. Airam Tripathi ALP [Catalytic activity/Vol] 162 U/L Critically high 46-116 [facility] Comment on above: Performed By: #### C MP ####[facility] Pyzyizyrpe16[address] [place], [place] [address]Dr. Airam Tripathi ALT [Catalytic activity/Vol] 19 U/L Normal 14-59 [facility] Comment on above: Performed By: #### C MP ####[facility] Wxfbeddmtg34[address] [place], [place] [address]Dr. Selenaneil Deuce Anion gap [Moles/Vol] 13.0 mmol/L Normal [facility] Comment on above: Performed By: #### C MP ####[facility] Fcrnmxkyyw25[address] [place], [place] [address]Dr. Airam Deuce AST [Catalytic activity/Vol] 21 U/L Normal 15-37 [facility] Comment on above: Performed By: #### C MP ####[facility] Svutdhpicg9924[address] [place], [place] [address]Dr. Airam Deuce Bilirubin [Mass/Vol] 0.3 mg/dL Normal 0.2-1.0 [facility] Comment on above: Performed By: #### C MP ####[facility] Hjvwvictiv914[address] [place], [place] [address]Dr. Airam Deuce Calcium [Mass/Vol] 8.4 mg/dL Critically low 8.5-10.1 [facility] Comment on above: Performed By: #### C MP ####[facility] Jtrvmmuldm775[address] [place], [place] [address]Dr. Airam Tripathi Chloride [Moles/Vol] 103 mmol/L Normal 98-107 [facility] Comment on above: Performed By: #### C MP ####[facility] Shhfzfspjb2368 [place] [phone]. Airam Tripathi CO2 [Moles/Vol] 23.3 mmol/L Normal 21.0-32.0 [facility] Comment on above: Performed By: #### C MP ####[facility] Xsocfctyhw8465 [place] [address]Dr. Airam Tripathi Creatinine [Mass/Vol] 1.02 mg/dL Normal 0.55-1.02 [facility] Comment on above: Performed By: #### C MP ####[facility] Lgafvjrnbr[address] [place], [place] [address]Dr. Airam Deuce EGFR-AF ISRAELI >60 Normal >=60 [facility] Comment on above: Performed By: #### C MP ####[facility] Qzbfuabnur507[address] [place], [place] [address]Dr. Airam Tripathi EGFR-NON AF ISRAELI 55 mL/min/1.73m2 Critically low >=60 [facility] Comment on above: Performed By: #### C MP ####[facility] Ontkbooryv[address] [place], [place] [address]Dr. Airam Deuce Globulin (S) [Mass/Vol] 3.4 g/dL Normal [facility] Comment on above: Performed By: #### C MP ####[facility] Ixrnbatslu9[address] [place], [place] [address]Dr. Airam Deuce Glucose [Mass/Vol] 88 mg/dL Normal 74-106 [facility] Comment on above: Performed By: #### C MP ####[facility] Vtoyymmhsm01[address] [place], [place] [address]Dr. Airam Deuce Potassium [Moles/Vol] 4.3 mmol/L Normal 3.5-5.1 [facility] Comment on above: Performed By: #### C MP ####[facility] Uudfxcsogt6365[address] [place], [place] [address]Dr. Airam Deuce Protein [Mass/Vol] 6.5 g/dL Normal 6.4-8.2 [facility] Comment on above: Performed By: #### C MP ####[facility] Gcnpsgawje65[address] [place], [place] [address]Dr. Airam Tripathi Sodium [Moles/Vol] 135 mmol/L Critically low 136-145 Th e [facility] Comment on above: Performed By: #### C MP ####[facility] Nhxpisptub9910 [place] [address]Dr. Airam Tripathi Urea nitrogen [Mass/Vol] 27.0 mg/dL Critically high 7.0-18.0 [facility] Comment on above: Performed By: #### C MP ####[facility] Qahtzgxsoi4247 [place] [address]Dr. Airam Tripathi Urea nitrogen/Creatinine [Mass ratio] 26.5 mg/mg Normal [facility] Comment on above: Performed By: #### C MP ####[facility] Ejidxtnmvk[address] [place] [address]Dr[address] Air[address] Tripathi CT HEAD WO CONon 08-06-2022 CT HEAD WO CON Normal [facility] CT LSPINE WO CONon 3 CT LSPINE WO CON Normal [facility] XR HAND RT MIN 3Von 08-06-19 23 XR HAND RT MIN 3V Normal [facility] XR KNEE LT 4V or >on 023 XR KNEE LT 4V or > Normal [facility] XR WRIST RT MIN 3 Von 2022 XR WRIST RT MIN 3 V Normal [facility] OSMOLALITYon 08-05-2022 Osmolality [Osmolality] 282 mosm/kg Normal 275-295 [facility] Comment on above: Performed By: #### O SMO ####[facility] Fidqnnphuk74[address] [place] [address]Dr. Airam Tripathi CBC AUTO DIFFon 08-03-2022 BASO # 0.0 103/ul Normal 0.0-0.1 [facility] Comment on above: Performed By: #### C BC ####[facility] Bdxtctjffv4166 [place] [address]Dr. Airam Tripathi Basophils/100 WBC (Bld) 0.5 % Normal 0.2-2.0 [facility] Comment on above: Performed By: #### C BC ####[facility] Jlhqsgwint7814 [place] [address]Dr. Airam Tripathi EO # 0.5 103/ul Normal 0.0-0.7 [facility] Comment on above: Performed By: #### C BC ####[facility] Vxungbbkpz909[address] [place], [place] [address]Dr. Airam Tripathi Eosinophils/100 WBC (Bld) 5.2 % Normal 0.9-7.0 [facility] Comment on above: Performed By: #### C BC ####[facility] Ecdgxwwhnh22[address] [place], [place] [address]Dr. Airam Tripathi Erythrocyte distribution width (RBC) [Ratio] 14.3 % Normal 11.0-15.0 [facility] Comment on above: Performed By: #### C BC ####[facility] Pvqjkqacnp126[address] [place], [place] [address]Dr. Airam Tripathi Hematocrit (Bld) [Volume fraction] 31.4 % Critically low 36.0-48.0 [facility] Comment on above: Performed By: #### C BC ####[facility] Bojmbpmfkb419[address] [place], [place] [address]Dr. Airam Tripathi Hemoglobin (Bld) [Mass/Vol] 9.5 g/dL Critically low 12.0-16.0 [facility] Comment on above: Performed By: #### C BC ####[facility] Yqysrsprem[address] [place], [place] [address]Dr. Airam Tripathi IG # 0.05 10e3/ul Critically high 0.00-0.03 [facility] Comment on above: Performed By: #### C BC ####[facility] Niyrqggypk9[address] [place], [place] [address]Dr. Airam Tripathi IG % 0.6 % Critically high 0.0-0.5 [facility] Comment on above: Performed By: #### C BC ####[facility] Guizkylrkp[address] [place], [place] [address]Dr. Selenaneil Tripathi LYMPH # 1.5 103/ul Normal 1.2-3.8 [facility] Comment on above: Performed By: #### C BC ####[facility] Dpggsfkeej5692 [place] [phone]. Aiarm Tripathi Lymphocytes/100 WBC (Bld) 17.6 % Critically low 20.5-60.0 [facility] Comment on above: Performed By: #### C BC ####[facility] Eoxmgjlmex1891 [place] [address]Dr. Airam Deuce MANUAL DIFF REQ NO Normal [facility] Comment on above: Performed By: #### C BC ####[facility] Ahigzeoman4950 [place] [address]Dr. Airam Deuce MCH (RBC) [Entitic mass] 29.0 pg Normal 26.7-34.0 [facility] Comment on above: Performed By: #### C BC ####[facility] Kizfxwnxog4573 [place] [address]Dr. Airam Deuce MCHC (RBC) [Mass/Vol] 30.3 g/dL Normal 29.9-35.2 [facility] Comment on above: Performed By: #### C BC ####[facility] Eyozaugahl1391 [place] [address]Dr. Airam Deuce MCV (RBC) [Entitic vol] 95.7 fL Normal 81.0-99.0 [facility] Comment on above: Performed By: #### C BC ####[facility] Qsphazxgqc15[address] [place], [place] [address]Dr. Selenaneil Deuce MONO # 0.7 103/ul Normal 0.3-0.8 [facility] Comment on above: Performed By: #### C BC ####[facility] Ntjwcokout7439 [place] [address]Dr. Selenaneil Tripathi Monocytes/100 WBC (Bld) 8.5 % Normal 1.7-12.0 [facility] Comment on above: Performed By: #### C BC ####[facility] Wvfoxzxfcm9[address] [place], [place] [address]Dr. Airam Tripathi NEUT # 5.8 103/ul Normal 1.4-6.5 [facility] Comment on above: Performed By: #### C BC ####[facility] Epjsypwblk7982 [place] [address]Dr. Airam Tripathi Neutrophils/100 WBC (Bld) 67.6 % Normal 43.0-75.0 [facility] Comment on above: Performed By: #### C BC ####[facility] Nealsichin[address] [place] [address]Dr. Ariam Tripathi Platelet mean volume (Bld) [Entitic vol] 9.5 fL Normal 9.5-13.5 [facility] Comment on above: Performed By: #### C BC ####[facility] Cbqvdsmxtc69[address] [place] [address]Dr. Airam Deuce PLT 292 103/ul Normal 150-450 [facility] Comment on above: Performed By: #### C BC ####[facility] Ynkjtnaslf4999 [place] [address]Dr. Selenaneil Deuce RBC 3.28 106/ul Critically low 4.20-5.40 [facility] Comment on above: Performed By: #### C BC ####[facility] Lysrouvnvf2927 [place] [address]Dr. Airam Deuce WBC 8.6 103/ul Normal 4.0-11.0 [facility] Comment on above: Performed By: #### C BC ####[facility] Cr[address]hdomd[address] [place], [place] [address]Dr. Airam Tripathi PROF 14(COMP METB)on 023 Albumin [Mass/Vol] 3.0 g/dL Critically low 3.4-5.0 [facility] Comment on above: Performed By: #### C MP ####[facility] Eixsgyjcxd[address] [place] [address]Dr. Selenaneil Tripathi Albumin/Globulin [Mass ratio] 0.9 {ratio} Normal [facility] Comment on above: Performed By: #### C MP ####[facility] Iikazkzrnx7762 [place] [address]Dr. Airam Deuce ALP [Catalytic activity/Vol] 184 U/L Critically high 46-116 [facility] Comment on above: Performed By: #### C MP ####[facility] Ocboyrctbc7087 [place] [address]Dr. Airam Tripathi ALT [Catalytic activity/Vol] 18 U/L Normal 14-59 [facility] Comment on above: Performed By: #### C MP ####[facility] Rkwykbnaxf0610 [place] [address]Dr. Airam Tripathi Anion gap [Moles/Vol] 11.2 mmol/L Normal Th e [facility] Comment on above: Performed By: #### C MP ####[facility] Sqofyfzeum[address] [place], [place] [address]Dr. Airam Tripathi AST [Catalytic activity/Vol] 19 U/L Normal 15-37 [facility] Comment on above: Performed By: #### C MP ####[facility] Oeyktcemel[address] [place], [place] [address]Dr. Airam Tripathi Bilirubin [Mass/Vol] 0.3 mg/dL Normal 0.2-1.0 [facility] Comment on above: Performed By: #### C MP ####[facility] Gdghoqkghu[address] [place], [place] [address]Dr. Airam Tripathi Calcium [Mass/Vol] 8.8 mg/dL Normal 8.5-10.1 [facility] Comment on above: Performed By: #### C MP ####[facility] Upxjjyjayy[address] [place], [place] [address]Dr. Airam Tripathi Chloride [Moles/Vol] 101 mmol/L Normal 98-107 [facility] Comment on above: Performed By: #### C MP ####[facility] Hltijmqyhy3[address] [place], [place] [address]Dr. Airam Tripathi CO2 [Moles/Vol] 25.4 mmol/L Normal 21.0-32.0 [facility] Comment on above: Performed By: #### C MP ####[facility] Jucatexjip[address] [place], [place] [address]Dr. Airam Tripathi Creatinine [Mass/Vol] 1.05 mg/dL Critically high 0.55-1.02 [facility] Comment on above: Performed By: #### C MP ####[facility] [address] [place] [address]Yf. Airam Tripathi EGFR-AF ISRAELI >60 Normal >=60 [facility] Comment on above: Performed By: #### C MP ####[facility] Wrtixjydqx2507 [place] [address]Dr. Airam Tripathi EGFR-NON AF ISRAELI 53 mL/min/1.73m2 Critically low >=60 [facility] Comment on above: Performed By: #### C MP ####[facility] Frjovruovy8384 [place] [address]Dr. Airam Tripathi Globulin (S) [Mass/Vol] 3.4 g/dL Normal [facility] Comment on above: Performed By: #### C MP ####[facility] Zjjzpgmshe44[address] [place], [place] [address]Dr. Airam Tripathi Glucose [Mass/Vol] 78 mg/dL Normal 74-106 [facility] Comment on above: Performed By: #### C MP ####[facility] Hskukfoslm[address] [place], [place] [address]Dr. Airam Tripathi Potassium [Moles/Vol] 4.6 mmol/L Normal 3.5-5.1 [facility] Comment on above: Performed By: #### C MP ####[facility] Wleayyjxtv[address] [place], [place] [address]Dr. Airam Tripathi Protein [Mass/Vol] 6.4 g/dL Normal 6.4-8.2 [facility] Comment on above: Performed By: #### C MP ####[facility] Hyfiqjrbbq5720 [place] [address]Dr. Airam Tripathi Sodium [Moles/Vol] 133 mmol/L Critically low 136-145 Th [facility] Comment on above: Performed By: #### C MP ####[facility] Cvksxtwhju[address] [place], [place] [address]Dr. Airam Tripathi Urea nitrogen [Mass/Vol] 26.0 mg/dL Critically high 7.0-18.0 [facility] Comment on above: Performed By: #### C MP ####[facility] Zeauqwezgp0[address] [place], [place] [address]Dr. Airam Tripathi Urea nitrogen/Creatinine [Mass ratio] 24.8 mg/mg Normal [facility] Comment on above: Performed By: #### C MP ####[facility] Jrpmvmccrm[address]01[address] [place], [place] [address]Dr. Airam Tripathi OSMOLALITYon 07-29-2022 Osmolality [Osmolality] 287 mosm/kg Normal 275-295 [facility] Comment on above: Performed By: #### O SMO ####[facility] Ajgwtkdowq063[address] [place], [place] [address]Dr. Airam Tripathi CBC AUTO DIFFon 07-27-2022 BASO # 0.0 103/ul Normal 0.0-0.1 [facility] Comment on above: Performed By: #### C BC ####[facility] Rwgmggrndu[address] [place], [place] [address]Dr. Airam Deuce Basophils/100 WBC (Bld) 0.4 % Normal 0.2-2.0 [facility] Comment on above: Performed By: #### C BC ####[facility] Ofpbzslbua1439[address] [place], [place] [address]Dr. Airam Tripathi EO # 0.2 103/ul Normal 0.0-0.7 [facility] Comment on above: Performed By: #### C BC ####[facility] Ympnrmfpvo[address] [place], [place] [address]Dr. Airam Tripathi Eosinophils/100 WBC (Bld) 2.6 % Normal 0.9-7.0 [facility] Comment on above: Performed By: #### C BC ####[facility] Rxwwjswwdx6640[address] [place], [place] [address]Dr. Airam Tripathi Erythrocyte distribution width (RBC) [Ratio] 14.2 % Normal 11.0-15.0 [facility] Comment on above: Performed By: #### C BC ####[facility] Srfikbqxgj[address] [place], [place] [address]Dr. Airam Tripathi Hematocrit (Bld) [Volume fraction] 31.3 % Critically low 36.0-48.0 [facility] Comment on above: Performed By: #### C BC ####[facility] Ptnhhkntvj9283 [place] [address]Dr. Airam Tripathi Hemoglobin (Bld) [Mass/Vol] 9.3 g/dL Critically low 12.0-16.0 [facility] Comment on above: Performed By: #### C BC ####[facility] Difwrhqcjr7215 [place] [address]Dr. Airam Tripathi IG # 0.05 10e3/ul Critically high 0.00-0.03 [facility] Comment on above: Performed By: #### C BC ####[facility] Fuuwvysnlj2312 [place] [address]Dr. Airam Tripathi IG % 0.7 % Critically high 0.0-0.5 [facility] Comment on above: Performed By: #### C BC ####[facility] M[address]wvqjzfc[address] [place], [place] [address]Dr. Airam Tripathi LYMPH # 1.0 103/ul Critically low 1.2-3.8 [facility] Comment on above: Performed By: #### C BC ####[facility] Bburyeqpeo[address] [place], [place] [address]Dr. Airam Tripathi Lymphocytes/100 WBC (Bld) 13.4 % Critically low 20.5-60.0 [facility] Comment on above: Performed By: #### C BC ####[facility] Xuakqhfgqf1583 [place] [address]Dr. Airam Tripathi MANUAL DIFF REQ NO Normal [facility] Comment on above: Performed By: #### C BC ####[facility] Fnziwznlpy9026 [place] [address]Dr. Airam Tripathi MCH (RBC) [Entitic mass] 28.8 pg Normal 26.7-34.0 [facility] Comment on above: Performed By: #### C BC ####[facility] Poywbpgjzc[address] [place], [place] [address]Dr. Airam Tripathi MCHC (RBC) [Mass/Vol] 29.7 g/dL Critically low 29.9-35.2 [facility] Comment on above: Performed By: #### C BC ####[facility] Lqjshifrvf[address] [place] [address]Dr. Airam Tripathi MCV (RBC) [Entitic vol] 96.9 fL Normal 81.0-99.0 [facility] Comment on above: Performed By: #### C BC ####[facility] Letkezwbpf[address] [place] [phone]. Airam Tripathi MONO # 0.5 103/ul Normal 0.3-0.8 [facility] Comment on above: Performed By: #### C BC ####[facility] Ppxzglwrwo1010 [place] [address]Dr. Airam Tripathi Monocytes/100 WBC (Bld) 6.3 % Normal 1.7-12.0 [facility] Comment on above: Performed By: #### C BC ####[facility] Sabfsupqll18[address] [place], [place] [address]Dr. Airam Tripathi NEUT # 5.8 103/ul Normal 1.4-6.5 [facility] Comment on above: Performed By: #### C BC ####[facility] Zjnnsrdyeq4934 [place] [address]Dr. Airam Tripathi Neutrophils/100 WBC (Bld) 76.6 % Critically high 43.0-75.0 [facility] Comment on above: Performed By: #### C BC ####[facility] Rcmatkxrmo2234 [place] [address]Dr. Airam Tripathi Platelet mean volume (Bld) [Entitic vol] 10.3 fL Normal 9.5-13.5 [facility] Comment on above: Performed By: #### C BC ####[facility] Kxleidbojz9125 [place] [phone]. Airam Tripathi PLT 265 103/ul Normal 150-450 [facility] Comment on above: Performed By: #### C BC ####[facility] [address]sw[address] [place], [place] [address]Dr. Airam Tripathi RBC 3.23 106/ul Critically low 4.20-5.40 [facility] Comment on above: Performed By: #### C BC ####[facility] J[address]warzc[address] [place], [place] [address]Dr. Airam Tripathi WBC 7.6 103/ul Normal 4.0-11.0 [facility] Comment on above: Performed By: #### C BC ####[facility] Dlsmfivdsv2906 [place] [address]Dr. Airam Tripathi PROF 14(COMP METB)on 023 Albumin [Mass/Vol] 2.9 g/dL Critically low 3.4-5.0 [facility] Comment on above: Performed By: #### C MP ####[facility] Crajghhuke0340 [place] [address]Dr. Airam Tripathi Albumin/Globulin [Mass ratio] 0.8 {ratio} Normal [facility] Comment on above: Performed By: #### C MP ####[facility] Jmyuznteyk[address] [place], [place] [address]Dr. Airam Tripathi ALP [Catalytic activity/Vol] 175 U/L Critically high 46-116 [facility] Comment on above: Performed By: #### C MP ####[facility] Oynkubtghq[address] [place], [place] [address]Dr. Airam Tripathi ALT [Catalytic activity/Vol] 24 U/L Normal 14-59 [facility] Comment on above: Performed By: #### C MP ####[facility] Dqetavvrqw[address] [place], [place] [address]Dr. Airam Tripathi Anion gap [Moles/Vol] 14.3 mmol/L Normal [facility] Comment on above: Performed By: #### C MP ####[facility] Hkjmtownzg[address] [place], [place] [address]Dr. Airam Tripathi AST [Catalytic activity/Vol] 25 U/L Normal 15-37 [facility] Comment on above: Performed By: #### C MP ####[facility] J[address]arko[address] [place], [place] [address]Dr. Airam Tripathi Bilirubin [Mass/Vol] 0.2 mg/dL Normal 0.2-1.0 [facility] Comment on above: Performed By: #### C MP ####[facility] Eeanaozope[address] [place], [place] [address]Dr. Airam Tripathi Calcium [Mass/Vol] 8.6 mg/dL Normal 8.5-10.1 [facility] Comment on above: Performed By: #### C MP ####[facility] Xkkxlznxrx8513 [place] [address]Dr. Airam Tripathi Chloride [Moles/Vol] 102 mmol/L Normal 98-107 [facility] Comment on above: Performed By: #### C MP ####[facility] Htodtrjtgn3486 [place] [address]Dr. Airam Tripathi CO2 [Moles/Vol] 23.7 mmol/L Normal 21.0-32.0 [facility] Comment on above: Performed By: #### C MP ####[facility] Dkvmlhsdkc6481 [place] [address]Dr. Airam Deuce Creatinine [Mass/Vol] 1.29 mg/dL Critically high 0.55-1.02 [facility] Comment on above: Performed By: #### C MP ####[facility] Emaoyplqfr5929 [place] [address]Dr. Airam Deuce EGFR-AF ISRAELI 51 mL/min/1.73m2 Critically low >=60 [facility] Comment on above: Performed By: #### C MP ####[facility] Dlvihpifuf6890 [place] [address]Dr. Airam Deuce EGFR-NON AF ISRAELI 42 mL/min/1.73m2 Critically low >=60 [facility] Comment on above: Performed By: #### C MP ####[facility] Pxawcnqpip1565 [place] [address]Dr. Airam Deuce Globulin (S) [Mass/Vol] 3.6 g/dL Normal [facility] Comment on above: Performed By: #### C MP ####[facility] Cdwbfiiczc3833 [place] [address]Dr. Airam Deuce Glucose [Mass/Vol] 84 mg/dL Normal 74-106 [facility] Comment on above: Performed By: #### C MP ####[facility] Xppxprvgzz0335 [place] [address]Dr. Airam Tripathi Potassium [Moles/Vol] 5.0 mmol/L Normal 3.5-5.1 [facility] Comment on above: Performed By: #### C MP ####[facility] Uwqswxfldv[address] [place], [place] [address]Dr. Airam Tripathi Protein [Mass/Vol] 6.5 g/dL Normal 6.4-8.2 [facility] Comment on above: Performed By: #### C MP ####[facility] Bwyyfstciw[address] [place], [place] [address]Dr. Airam Tripathi Sodium [Moles/Vol] 135 mmol/L Critically low 136-145 Th [facility] Comment on above: Performed By: #### C MP ####[facility] Jfladnryie46[address] [place], [place] [address]Dr. Airam Tripathi Urea nitrogen [Mass/Vol] 28.0 mg/dL Critically high 7.0-18.0 [facility] Comment on above: Performed By: #### C MP ####[facility] Bkcuiribra[address] [place], [place] [address]Dr. Airam Tripathi Urea nitrogen/Creatinine [Mass ratio] 21.7 mg/mg Normal [facility] Comment on above: Performed By: #### C MP ####[facility] Bnboahoddy[address] [place], [place] [address]Dr. Airam Tripathi XR LSPINE MIN 4 VIEWSon 02-0 XR LSPINE MIN 4 VIEWS Normal [facility] OSMOLALITYon 07-24-2022 Osmolality [Osmolality] 279 mosm/kg Normal 275-295 [facility] Comment on above: Performed By: #### O SMO ####[facility] Vzdnytwxmg[address] [place], [place] [address]Dr. Airam Tripathi CBC AUTO DIFFon 07-21-2022 BASO # 0.0 103/ul Normal 0.0-0.1 [facility] Comment on above: Performed By: #### C BC ####[facility] Mngmyfargg696[address] [place], [place] [address]Dr. Airam Tripathi Basophils/100 WBC (Bld) 0.4 % Normal 0.2-2.0 [facility] Comment on above: Performed By: #### C BC ####[facility] Nuuqgicqgy2412 [place] [address]Dr. Airam Tripathi EO # 0.2 103/ul Normal 0.0-0.7 [facility] Comment on above: Performed By: #### C BC ####[facility] Mjgxojdcum9916 [place] [address]Dr. Airam Tripathi Eosinophils/100 WBC (Bld) 2.3 % Normal 0.9-7.0 [facility] Comment on above: Performed By: #### C BC ####[facility] Rjwfxf[address]fu[address] [place], [place] [address]Dr. Airam Tripathi Erythrocyte distribution width (RBC) [Ratio] 13.6 % Normal 11.0-15.0 [facility] Comment on above: Performed By: #### C BC ####[facility] Ghlmefswmn66[address] [place], [place] [address]Dr. Airam Tripathi Hematocrit (Bld) [Volume fraction] 32.6 % Critically low 36.0-48.0 [facility] Comment on above: Performed By: #### C BC ####[facility] Qthnsatlhy4[address] [place], [place] [address]Dr. Airam Tripathi Hemoglobin (Bld) [Mass/Vol] 9.5 g/dL Critically low 12.0-16.0 [facility] Comment on above: Performed By: #### C BC ####[facility] Zwsddxuhvz[address] [place], [place] [address]Dr. Airam Tripathi IG # 0.03 10e3/ul Normal 0.00-0.03 [facility] Comment on above: Performed By: #### C BC ####[facility] Bzytjqdhjn[address] [place], [place] [address]Dr. Selenaneil Tripathi IG % 0.4 % Normal 0.0-0.5 [facility] Comment on above: Performed By: #### C BC ####[facility] Grxu[address]fqml[address] [place], [place] [address]DrKianna Tripathi LYMPH # 1.4 103/ul Normal 1.2-3.8 [facility] Comment on above: Performed By: #### C BC ####[facility] Bkumytzjbm1247 [place] [address]Dr. Airam Deuce Lymphocytes/100 WBC (Bld) 18.2 % Critically low 20.5-60.0 [facility] Comment on above: Performed By: #### C BC ####[facility] Mfjqhuilwn9278 [place] [address]DrKianna Tripathi MANUAL DIFF REQ NO Normal [facility] Comment on above: Performed By: #### C BC ####[facility] Gylskdudmm5316 [place] [phone]. Airam Tripathi MCH (RBC) [Entitic mass] 29.5 pg Normal 26.7-34.0 [facility] Comment on above: Performed By: #### C BC ####[facility] Bzhbfiwxkf64[address] [place], [place] [address]Dr. Airam Tripathi MCHC (RBC) [Mass/Vol] 29.1 g/dL Critically low 29.9-35.2 [facility] Comment on above: Performed By: #### C BC ####[facility] Hgneushois[address] [place], [place] [address]DrKianna Tripathi MCV (RBC) [Entitic vol] 101.2 fL Critically high 81.0-99.0 [facility] Comment on above: Performed By: #### C BC ####[facility] Memjlexvmg[address] [place], [place] [address]Dr. Airam Tripathi MONO # 0.6 103/ul Normal 0.3-0.8 [facility] Comment on above: Performed By: #### C BC ####[facility] [address] [place], [place] [address]DrKianna Tripathi Monocytes/100 WBC (Bld) 7.9 % Normal 1.7-12.0 [facility] Comment on above: Performed By: #### C BC ####[facility] Ixflmhbbah[address] [place], [place] [address]DrKianna Tripathi NEUT # 5.5 103/ul Normal 1.4-6.5 [facility] Comment on above: Performed By: #### C BC ####[facility] Faxcyqyxhl3249 [place] [address]Dr. Airam Deuce Neutrophils/100 WBC (Bld) 70.8 % Normal 43.0-75.0 [facility] Comment on above: Performed By: #### C BC ####[facility] Fglyanwlhq0217 [place] [phone]. Selenaneil Deuce Platelet mean volume (Bld) [Entitic vol] 9.6 fL Normal 9.5-13.5 [facility] Comment on above: Performed By: #### C BC ####[facility] Qutziyulvx59[address] [place] [address]Dr. Airam Tripathi PLT 265 103/ul Normal 150-450 [facility] Comment on above: Performed By: #### C BC ####[facility] Bmgzxbukrv2393 [place] [address]Dr. Airam Tripathi RBC 3.22 106/ul Critically low 4.20-5.40 [facility] Comment on above: Performed By: #### C BC ####[facility] Tuksbsroch8797 [place] [address]Dr. Airam Tripathi WBC 7.8 103/ul Normal 4.0-11.0 [facility] Comment on above: Performed By: #### C BC ####[facility] Bzdvfcmasf4523 [place] [address]DrKianna Tripathi PROF 14(COMP METB)on 023 Albumin [Mass/Vol] 2.9 g/dL Critically low 3.4-5.0 [facility] Comment on above: Performed By: #### C MP ####[facility] Aavrnsfyyt8504 [place] [address]DrKianna Tripathi Albumin/Globulin [Mass ratio] 0.9 {ratio} Normal [facility] Comment on above: Performed By: #### C MP ####[facility] Jotoljqeqx3449 [place] [phone] Tripathi ALP [Catalytic activity/Vol] 176 U/L Critically high 46-116 [facility] Comment on above: Performed By: #### C MP ####[facility] Jjxfxecmmv6738 [place] [phone]. Airam Tripathi ALT [Catalytic activity/Vol] 19 U/L Normal 14-59 [facility] Comment on above: Performed By: #### C MP ####[facility] Bgicttjfjv4537 [place] [phone]. Airam Tripathi Anion gap [Moles/Vol] 12.6 mmol/L Normal Th [facility] Comment on above: Performed By: #### C MP ####[facility] Otxzgvwfda5417 [place] [phone]. Airam Tripathi AST [Catalytic activity/Vol] 25 U/L Normal 15-37 [facility] Comment on above: Performed By: #### C MP ####[facility] Xbgpqaclkn1006 [place] [address]Dr. Airam Deuce Bilirubin [Mass/Vol] 0.2 mg/dL Normal 0.2-1.0 [facility] Comment on above: Performed By: #### C MP ####[facility] Bvxmlyrvtt2683 [place] [phone]. Airam Deuce Calcium [Mass/Vol] 8.5 mg/dL Normal 8.5-10.1 [facility] Comment on above: Performed By: #### C MP ####[facility] Pcqznfddsx0033 [place] [address]Dr. Airam Deuce Chloride [Moles/Vol] 101 mmol/L Normal 98-107 [facility] Comment on above: Performed By: #### C MP ####[facility] Wrehywdcxz1423 [place] [phone]. Airam Tripathi CO2 [Moles/Vol] 25.9 mmol/L Normal 21.0-32.0 [facility] Comment on above: Performed By: #### C MP ####[facility] Qhugyjzlpl7181 [place] [phone]. Selenaneil Tripathi Creatinine [Mass/Vol] 1.11 mg/dL Critically high 0.55-1.02 [facility] Comment on above: Performed By: #### C MP ####[facility] [address]seikgp[address] [place] [address]Dr. Airam Tripathi EGFR-AF ISRAELI >60 Normal >=60 [facility] Comment on above: Performed By: #### C MP ####[facility] [address] [place] [phone]. Airam Tripathi EGFR-NON AF ISRAELI 50 mL/min/1.73m2 Critically low >=60 [facility] Comment on above: Performed By: #### C MP ####[facility] Wuueeqmulu[address] [place] [address]Dr. Airam eDuce Globulin (S) [Mass/Vol] 3.2 g/dL Normal [facility] Comment on above: Performed By: #### C MP ####[facility] Rkwjoksrrg[address] [place] [address]Dr. iAram Tripathi Glucose [Mass/Vol] 80 mg/dL Normal 74-106 [facility] Comment on above: Performed By: #### C MP ####[facility] Rikkghwgow[address] [place] [address]Dr. Selenaneil Tripathi Potassium [Moles/Vol] 3.5 mmol/L Normal 3.5-5.1 [facility] Comment on above: Performed By: #### C MP ####[facility] Qnfyceflmj27[address] [place] [address]Dr. Airam Tripathi Protein [Mass/Vol] 6.1 g/dL Critically low 6.4-8.2 [facility] Comment on above: Performed By: #### C MP ####[facility] Fkgnqhriru[address] [place] [address]Dr. Airam Tripathi Sodium [Moles/Vol] 136 mmol/L Normal 136-145 [facility] Comment on above: Performed By: #### C MP ####[facility] Auzclvgtky[address] [place] [address]Dr. Airam Tripathi Urea nitrogen [Mass/Vol] 31.0 mg/dL Critically high 7.0-18.0 [facility] Comment on above: Performed By: #### C MP ####[facility] Tvwfakuisl7164 [place] [address]Dr. Airam Tripathi Urea nitrogen/Creatinine [Mass ratio] 27.9 mg/mg Normal [facility] Comment on above: Performed By: #### C MP ####[facility] Zrrklazyrw[address] [place] [phone]. Airam Tripathi OSMOLALITYon 07-19-2022 Osmolality [Osmolality] 285 mosm/kg Normal 275-295 [facility] Comment on above: Performed By: #### O SMO ####[facility] Ftuiqwkzor[address] [place], [place] [address]Dr. Airam Deuce CBC AUTO DIFFon 07-15-2022 BASO # 0.0 103/ul Normal 0.0-0.1 [facility] Comment on above: Performed By: #### C BC ####[facility] Qrrnmhuixk[address] [place], [place] [address]Dr. Airam Tripathi Basophils/100 WBC (Bld) 0.2 % Normal 0.2-2.0 [facility] Comment on above: Performed By: #### C BC ####[facility] Saffuluxyb[address] [place], [place] [address]Dr. Airam Deuce EO # 0.1 103/ul Normal 0.0-0.7 [facility] Comment on above: Performed By: #### C BC ####[facility] Cquhutybmo[address] [place], [place] [address]Dr. Selenaneil Tripathi Eosinophils/100 WBC (Bld) 1.4 % Normal 0.9-7.0 [facility] Comment on above: Performed By: #### C BC ####[facility] Ueryouqivc[address] [place], [place] [address]Dr. Airam Deuce Erythrocyte distribution width (RBC) [Ratio] 13.0 % Normal 11.0-15.0 [facility] Comment on above: Performed By: #### C BC ####[facility] Tnmtlnwiqr[address] [place], [place] [address]Dr. Selenaneil Deuce Hematocrit (Bld) [Volume fraction] 29.3 % Critically low 36.0-48.0 [facility] Comment on above: Performed By: #### C BC ####[facility] Fshvfupcmz24[address] [place] [address]Dr. Airam Tripathi Hemoglobin (Bld) [Mass/Vol] 10.3 g/dL Critically low 12.0-16.0 [facility] Comment on above: Performed By: #### C BC ####[facility] Ectxejmant[address] [place] [address]DrKianna Airam Tripathi IG # 0.05 10e3/ul Critically high 0.00-0.03 [facility] Comment on above: Performed By: #### C BC ####[facility] Irajpesfuy[address] [place] [address]DrKianna Airam Tripathi IG % 0.6 % Critically high 0.0-0.5 [facility] Comment on above: Performed By: #### C BC ####[facility] Btndsvwxss[address] [place], [place] [address]DrKianna Airam Deuce LYMPH # 0.9 103/ul Critically low 1.2-3.8 [facility] Comment on above: Performed By: #### C BC ####[facility] Evmkyuubfx[address] [place], [place] [address]DrKianna Airam Deuce Lymphocytes/100 WBC (Bld) 10.6 % Critically low 20.5-60.0 [facility] Comment on above: Performed By: #### C BC ####[facility] Rsdirmvxwi3192 [place] [address]DrKianna Airam Deuce MANUAL DIFF REQ NO Normal [facility] Comment on above: Performed By: #### C BC ####[facility] Wujjlghosr365[address] [place], [place] [address]DrKianna Airam Deuce MCH (RBC) [Entitic mass] 29.3 pg Normal 26.7-34.0 [facility] Comment on above: Performed By: #### C BC ####[facility] Sgmbiuqfip9[address] [place] [address]DrKianna Selenaneil Tripathi MCHC (RBC) [Mass/Vol] 35.2 g/dL Normal 29.9-35.2 [facility] Comment on above: Performed By: #### C BC ####[facility] K[address]frqypwdu[address] [place] [phone] Airam Deuce MCV (RBC) [Entitic vol] 83.5 fL Normal 81.0-99.0 [facility] Comment on above: Performed By: #### C BC ####[facility] Nhgyfyqyxc6[address] [place] [phone] Waltersneil Deuce MONO # 0.5 103/ul Normal 0.3-0.8 [facility] Comment on above: Performed By: #### C BC ####[facility] Lbzbvvdwur26[address] [place] [address]Dr. Selenaneil Tripathi Monocytes/100 WBC (Bld) 5.1 % Normal 1.7-12.0 [facility] Comment on above: Performed By: #### C BC ####[facility] Fwezaucodk[address] [place], [place] [address]DrKianna Tripathi NEUT # 7.3 103/ul Critically high 1.4-6.5 [facility] Comment on above: Performed By: #### C BC ####[facility] I[address] [place], [place] [address]Dr. Selenaneil Tripathi Neutrophils/100 WBC (Bld) 82.1 % Critically high 43.0-75.0 [facility] Comment on above: Performed By: #### C BC ####[facility] Sadojvtmnj[address] [place] [address]Dr. Selenaneil Tripathi Platelet mean volume (Bld) [Entitic vol] 8.9 fL Critically low 9.5-13.5 [facility] Comment on above: Performed By: #### C BC ####[facility] Hyowxotm[address] [place], [place] [address]Dr. Airam Tripathi PLT 290 103/ul Normal 150-450 [facility] Comment on above: Performed By: #### C BC ####[facility] [address]tvzfwxcq39[address] [place] [phone]. Airam Tripathi RBC 3.51 106/ul Critically low 4.20-5.40 [facility] Comment on above: Performed By: #### C BC ####[facility] Jnjxhyikbu9[address] [place] [address]Dr. Airam Tripathi WBC 8.9 103/ul Normal 4.0-11.0 [facility] Comment on above: Performed By: #### C BC ####[facility] Zdifitzqvp0143 [place] [address]DrKianna Tripathi PROF 14(COMP METB)on 023 Albumin [Mass/Vol] 3.2 g/dL Critically low 3.4-5.0 [facility] Comment on above: Performed By: #### C MP ####[facility] Oqlnjukhhk6[address] [place] [address]Dr. Airam Tripathi Albumin/Globulin [Mass ratio] 0.9 {ratio} Normal [facility] Comment on above: Performed By: #### C MP ####[facility] Afxicfidlt[address] [place], [place] [address]Dr. Airam Tripathi ALP [Catalytic activity/Vol] 194 U/L Critically high 46-116 [facility] Comment on above: Performed By: #### C MP ####[facility] Juduliiwtq[address] [place], [place] [address]Dr. Airam Tripathi ALT [Catalytic activity/Vol] 19 U/L Normal 14-59 [facility] Comment on above: Performed By: #### C MP ####[facility] Nysvridaws[address] [place] [address]Dr. Airam Tripathi Anion gap [Moles/Vol] 11.3 mmol/L Normal [facility] Comment on above: Performed By: #### C MP ####[facility] Rwrzmgurim5[address] [place] [address]Dr. Airam Tripathi AST [Catalytic activity/Vol] 24 U/L Normal 15-37 [facility] Comment on above: Performed By: #### C MP ####[facility] Smpsllhogr3190 [place] [address]Dr. Airam Tripathi Bilirubin [Mass/Vol] 0.2 mg/dL Normal 0.2-1.0 [facility] Comment on above: Performed By: #### C MP ####[facility] Byvkpfutum2770 [place] [address]Dr. Airam Tripathi Calcium [Mass/Vol] 8.7 mg/dL Normal 8.5-10.1 [facility] Comment on above: Performed By: #### C MP ####[facility] Zngqyevxtw38[address] [place] [address]Dr. Airam Tripathi Chloride [Moles/Vol] 101 mmol/L Normal 98-107 [facility] Comment on above: Performed By: #### C MP ####[facility] Uerzrvljqf4[address] [place] [address]Dr. Airam Tripathi CO2 [Moles/Vol] 27.2 mmol/L Normal 21.0-32.0 [facility] Comment on above: Performed By: #### C MP ####[facility] Ekukemtmgf[address] [place], [place] [address]Dr. Airam Tripathi Creatinine [Mass/Vol] 1.17 mg/dL Critically high 0.55-1.02 [facility] Comment on above: Performed By: #### C MP ####[facility] Tzkwubpwdl4837 [place] [address]Dr. Airam Tripathi EGFR-AF ISRAELI 57 mL/min/1.73m2 Critically low >=60 [facility] Comment on above: Performed By: #### C MP ####[facility] Kdnxlitetm50[address] [place] [address]Dr. Airam Deuce EGFR-NON AF ISRAELI 47 mL/min/1.73m2 Critically low >=60 [facility] Comment on above: Performed By: #### C MP ####[facility] Petrodrprm6246 [place] [address]Dr. Airam Deuce Globulin (S) [Mass/Vol] 3.5 g/dL Normal [facility] Comment on above: Performed By: #### C MP ####[facility] Lxekqarlfh4349 [place] [address]Dr. Airam Deuce Glucose [Mass/Vol] 86 mg/dL Normal 74-106 [facility] Comment on above: Performed By: #### C MP ####[facility] Casepcnfuj8831 [place] [address]Dr. Airam Tripathi Potassium [Moles/Vol] 5.5 mmol/L Critically high 3.5-5.1 [facility] Comment on above: Performed By: #### C MP ####[facility] Oappjwtgpr7762 [place] [address]DrKianna Tripathi Protein [Mass/Vol] 6.7 g/dL Normal 6.4-8.2 [facility] Comment on above: Performed By: #### C MP ####[facility] [address]qtcgxnrn[address] [place], [place] [address]Dr. Airam Tripathi Sodium [Moles/Vol] 134 mmol/L Critically low 136-145 Th [facility] Comment on above: Performed By: #### C MP ####[facility] Yipimwenqv678[address] [place], [place] [address]DrKianna Tripathi Urea nitrogen [Mass/Vol] 26.0 mg/dL Critically high 7.0-18.0 [facility] Comment on above: Performed By: #### C MP ####[facility] Sxinnxoafi[address] [place], [place] [address]Dr. Airam Tripathi Urea nitrogen/Creatinine [Mass ratio] 22.2 mg/mg Normal [facility] Comment on above: Performed By: #### C MP ####[facility] Ebnuapmdbh40[address] [place], [place] [address]Dr. Airam Tripathi OSMOLALITYon 07-08-2022 Osmolality [Osmolality] 273 mosm/kg Critically low 275-295 [facility] Comment on above: Performed By: #### O SMO ####[facility] Krqvkzdglo[address] [place], [place] [address]DrKianna Tripathi CBC AUTO DIFFon 07-07-2022 BASO # 0.0 103/ul Normal 0.0-0.1 [facility] Comment on above: Performed By: #### C BC ####[facility] Xepmfwsgwc[address] [place], [place] [address]DrKianna Tripathi Basophils/100 WBC (Bld) 0.4 % Normal 0.2-2.0 [facility] Comment on above: Performed By: #### C BC ####[facility] Oobrgdhhbz[address] [place], [place] [address]DrKianna Tripathi EO # 0.1 103/ul Normal 0.0-0.7 [facility] Comment on above: Performed By: #### C BC ####[facility] Exxgrjcnai3023[address] [place], [place] [address]DrKianna Tripathi Eosinophils/100 WBC (Bld) 1.6 % Normal 0.9-7.0 [facility] Comment on above: Performed By: #### C BC ####[facility] Oioyymlgsd45[address] [place], [place] [address]DrKianna Tripathi Erythrocyte distribution width (RBC) [Ratio] 13.1 % Normal 11.0-15.0 [facility] Comment on above: Performed By: #### C BC ####[facility] Qcvhcootna47[address] [place], [place] [address]DrKianna Tripathi Hematocrit (Bld) [Volume fraction] 33.7 % Critically low 36.0-48.0 [facility] Comment on above: Performed By: #### C BC ####[facility] Bpukcjmyzj95[address] [place], [place] [address]DrKianna Tripathi Hemoglobin (Bld) [Mass/Vol] 9.9 g/dL Critically low 12.0-16.0 [facility] Comment on above: Performed By: #### C BC ####[facility] Ghqfttdbya[address] [place], [place] [address]DrKianna Tripathi IG # 0.05 10e3/ul Critically high 0.00-0.03 [facility] Comment on above: Performed By: #### C BC ####[facility] Afibrtkyiv0279[address] [place], [place] [address]DrKianna Tripathi IG % 0.6 % Critically high 0.0-0.5 [facility] Comment on above: Performed By: #### C BC ####[facility] Hvxcugplil15[address] [place], [place] [address]DrKianna Tripathi LYMPH # 1.2 103/ul Normal 1.2-3.8 [facility] Comment on above: Performed By: #### C BC ####[facility] Nhjjfnbldd1004 [place] [address]DrKianna Tripathi Lymphocytes/100 WBC (Bld) 15.5 % Critically low 20.5-60.0 [facility] Comment on above: Performed By: #### C BC ####[facility] Mkhlfrdfyv[address] [place], [place] [address]DrKianna Tripathi MANUAL DIFF REQ NO Normal [facility] Comment on above: Performed By: #### C BC ####[facility] Bfbrfoztju36[address] [place], [place] [address]DrKianna Tripathi MCH (RBC) [Entitic mass] 28.7 pg Normal 26.7-34.0 [facility] Comment on above: Performed By: #### C BC ####[facility] Jrqwuwttcm57[address] [place], [place] [address]DrKianna Tripathi MCHC (RBC) [Mass/Vol] 29.4 g/dL Critically low 29.9-35.2 [facility] Comment on above: Performed By: #### C BC ####[facility] Uuruuxamdm15[address] [place], [place] [address]DrKianna Tripathi MCV (RBC) [Entitic vol] 97.7 fL Normal 81.0-99.0 [facility] Comment on above: Performed By: #### C BC ####[facility] Hyjxdunrvq[address] [place], [place] [address]DrKianna Tripathi MONO # 0.6 103/ul Normal 0.3-0.8 [facility] Comment on above: Performed By: #### C BC ####[facility] Eafhtuafeb79[address] [place], [place] [address]DrKianna Tripathi Monocytes/100 WBC (Bld) 7.7 % Normal 1.7-12.0 [facility] Comment on above: Performed By: #### C BC ####[facility] Oqqjfhzzod[address] [place], [place] [address]DrKianna Tripathi NEUT # 5.9 103/ul Normal 1.4-6.5 [facility] Comment on above: Performed By: #### C BC ####[facility] Oxtasykjsl6387 [place] [address]Dr. Airam Tripathi Neutrophils/100 WBC (Bld) 74.2 % Normal 43.0-75.0 [facility] Comment on above: Performed By: #### C BC ####[facility] Yuothdfieu8667 [place] [address]Dr. Airam Tripathi Platelet mean volume (Bld) [Entitic vol] 9.4 fL Critically low 9.5-13.5 [facility] Comment on above: Performed By: #### C BC ####[facility] Roshfbjjln8[address] [place], [place] [address]Dr. Airam Tripathi PLT 331 103/ul Normal 150-450 [facility] Comment on above: Performed By: #### C BC ####[facility] Wbobpftswe[address] [place], [place] [address]DrKianna Tripathi RBC 3.45 106/ul Critically low 4.20-5.40 [facility] Comment on above: Performed By: #### C BC ####[facility] Rqlgmueaaw88[address] [place], [place] [address]DrKianna Tripathi WBC 7.9 103/ul Normal 4.0-11.0 [facility] Comment on above: Performed By: #### C BC ####[facility] Iczvbvexxg24[address] [place], [place] [address]DrKianna Tripathi PROF 14(COMP METB)on 023 Albumin [Mass/Vol] 3.4 g/dL Normal 3.4-5.0 [facility] Comment on above: Performed By: #### C MP ####[facility] Jccjhvqxbp[address] [place], [place] [address]DrKianna Tripathi Albumin/Globulin [Mass ratio] 1.1 {ratio} Normal [facility] Comment on above: Performed By: #### C MP ####[facility] Earciqwmdv[address] [place], [place] [address]DrKianna Tripathi ALP [Catalytic activity/Vol] 197 U/L Critically high 46-116 [facility] Comment on above: Performed By: #### C MP ####[facility] Fxizvaldqw9302 [place] [address]Dr. Airam Tripathi ALT [Catalytic activity/Vol] 18 U/L Normal 14-59 [facility] Comment on above: Performed By: #### C MP ####[facility] Xqyouzontj7443 [place] [address]Dr. Airam Deuce Anion gap [Moles/Vol] 12.3 mmol/L Normal Th e [facility] Comment on above: Performed By: #### C MP ####[facility] Rbsdpkdtsk[address] [place], [place] [address]Dr. Airam Deuce AST [Catalytic activity/Vol] 26 U/L Normal 15-37 [facility] Comment on above: Performed By: #### C MP ####[facility] Xzmsyntzcb[address] [place], [place] [address]Dr. Airam Deuce Bilirubin [Mass/Vol] 0.3 mg/dL Normal 0.2-1.0 [facility] Comment on above: Performed By: #### C MP ####[facility] Qmzucfuyjn[address] [place], [place] [address]Dr. Airam Deuce Calcium [Mass/Vol] 8.6 mg/dL Normal 8.5-10.1 [facility] Comment on above: Performed By: #### C MP ####[facility] Sroigdniur[address] [place], [place] [address]Dr. Airam Deuce Chloride [Moles/Vol] 96 mmol/L Critically low 98-107 [facility] Comment on above: Performed By: #### C MP ####[facility] [address]zwcc[address] [place], [place] [address]Dr. Airam Deuce CO2 [Moles/Vol] 27.8 mmol/L Normal 21.0-32.0 [facility] Comment on above: Performed By: #### C MP ####[facility] Y[address]ouocdefe[address] [place], [place] [address]Dr. Airam Deuce Creatinine [Mass/Vol] 1.55 mg/dL Critically high 0.55-1.02 [facility] Comment on above: Performed By: #### C MP ####[facility] Qdhduvqdom7[address] [place] [address]Dr. Selenaneil Deuce EGFR-AF ISRAELI 41 mL/min/1.73m2 Critically low >=60 [facility] Comment on above: Performed By: #### C MP ####[facility] Pkcpokminw0659 [place] [address]Dr. Airam Tripathi EGFR-NON AF ISRAELI 34 mL/min/1.73m2 Critically low >=60 [facility] Comment on above: Performed By: #### C MP ####[facility] Uwygcsmxkq9680 [place] [address]Dr. Airam Tripathi Globulin (S) [Mass/Vol] 3.2 g/dL Normal [facility] Comment on above: Performed By: #### C MP ####[facility] Emljlxlfcy[address] [place], [place] [address]Dr. Airam Tripathi Glucose [Mass/Vol] 87 mg/dL Normal 74-106 [facility] Comment on above: Performed By: #### C MP ####[facility] Jswuraasrn[address] [place], [place] [address]Dr. Airam Tripathi Potassium [Moles/Vol] 5.1 mmol/L Normal 3.5-5.1 [facility] Comment on above: Performed By: #### C MP ####[facility] Jamelqrxde49[address] [place], [place] [address]Dr. Airam Tripathi Protein [Mass/Vol] 6.6 g/dL Normal 6.4-8.2 [facility] Comment on above: Performed By: #### C MP ####[facility] Rosjjachpn7975 [place] [address]Dr. Airam Tripathi Sodium [Moles/Vol] 131 mmol/L Critically low 136-145 Th [facility] Comment on above: Performed By: #### C MP ####[facility] Kmdxeunfyj5814 [place] [address]Dr. Airam Tripathi Urea nitrogen [Mass/Vol] 31.0 mg/dL Critically high 7.0-18.0 [facility] Comment on above: Performed By: #### C MP ####[facility] Arilyfdxbb[address] [place], [place] [address]DrKianna Tripathi Urea nitrogen/Creatinine [Mass ratio] 20.0 mg/mg Normal [facility] Comment on above: Performed By: #### C MP ####[facility] [address]alyukiiw[address] [place], [place] [address]DrKianna Tripathi OSMOLALITYon 07-02-2022 Osmolality [Osmolality] 281 mosm/kg Normal 275-295 [facility] Comment on above: Performed By: #### O SMO ####[facility] E[address]zraktujx[address] [place], [place] [address]DrKianna Tripathi CBC AUTO DIFFon 06-29-2022 BASO # 0.0 103/ul Normal 0.0-0.1 [facility] Comment on above: Performed By: #### C BC ####[facility] [address]ofqtevl[address] [place], [place] [address]DrKianna Tripathi Basophils/100 WBC (Bld) 0.3 % Normal 0.2-2.0 [facility] Comment on above: Performed By: #### C BC ####[facility] [address]ofhdccde[address] [place], [place] [address]DrKianna Tripathi EO # 0.2 103/ul Normal 0.0-0.7 [facility] Comment on above: Performed By: #### C BC ####[facility] Kzgqlfvssq[address] [place], [place] [address]DrKianna Tripathi Eosinophils/100 WBC (Bld) 2.3 % Normal 0.9-7.0 [facility] Comment on above: Performed By: #### C BC ####[facility] Cgcbqmtncp[address] [place], [place] [address]DrKianna Tripathi Erythrocyte distribution width (RBC) [Ratio] 13.2 % Normal 11.0-15.0 [facility] Comment on above: Performed By: #### C BC ####[facility] Zvejofonen[address] [place], [place] [address]DrKianna Tripathi Hematocrit (Bld) [Volume fraction] 28.2 % Critically low 36.0-48.0 [facility] Comment on above: Performed By: #### C BC ####[facility] [address] [place] [address]DrKianna Airam Deuce Hemoglobin (Bld) [Mass/Vol] 9.1 g/dL Critically low 12.0-16.0 [facility] Comment on above: Performed By: #### C BC ####[facility] Ijypjglino[address] [place], [place] [address]DrKianna Tripathi IG # 0.03 10e3/ul Normal 0.00-0.03 [facility] Comment on above: Performed By: #### C BC ####[facility] Pfrpatygfk897[address] [place], [place] [address]Dr. Airam Tripathi IG % 0.4 % Normal 0.0-0.5 [facility] Comment on above: Performed By: #### C BC ####[facility] Pxwpqttrti07[address] [place], [place] [address]DrKianna Tripathi LYMPH # 1.0 103/ul Critically low 1.2-3.8 [facility] Comment on above: Performed By: #### C BC ####[facility] Gtwyopdfxi7[address] [place], [place] [address]DrKianna Tripathi Lymphocytes/100 WBC (Bld) 12.8 % Critically low 20.5-60.0 [facility] Comment on above: Performed By: #### C BC ####[facility] Oelbrivyzx[address] [place], [place] [address]DrKianna Tripathi MANUAL DIFF REQ NO Normal [facility] Comment on above: Performed By: #### C BC ####[facility] Ozufyldssq8614[address] [place], [place] [address]DrKianna Tripathi MCH (RBC) [Entitic mass] 29.9 pg Normal 26.7-34.0 [facility] Comment on above: Performed By: #### C BC ####[facility] Xdzxqmmtmj201[address] [place], [place] [address]Dr. Airam Tripathi MCHC (RBC) [Mass/Vol] 32.3 g/dL Normal 29.9-35.2 [facility] Comment on above: Performed By: #### C BC ####[facility] Wxxkpwvzht2[address] [place] [address]Dr. Selenaneil Tripathi MCV (RBC) [Entitic vol] 92.8 fL Normal 81.0-99.0 [facility] Comment on above: Performed By: #### C BC ####[facility] Qyyqtyiegz8[address] [place], [place] [address]DrKianna Tripathi MONO # 0.5 103/ul Normal 0.3-0.8 [facility] Comment on above: Performed By: #### C BC ####[facility] Mogqodgtqo1316[address] [place], [place] [address]DrKianna Tripathi Monocytes/100 WBC (Bld) 6.0 % Normal 1.7-12.0 [facility] Comment on above: Performed By: #### C BC ####[facility] Friwfwipxc7[address] [place], [place] [address]Dr. Airam Tripathi NEUT # 6.0 103/ul Normal 1.4-6.5 [facility] Comment on above: Performed By: #### C BC ####[facility] Esabpzkmsw8[address] [place], [place] [address]DrKianna Tripathi Neutrophils/100 WBC (Bld) 78.2 % Critically high 43.0-75.0 [facility] Comment on above: Performed By: #### C BC ####[facility] Xtayckqjfe[address] [place], [place] [address]DrKianna Tripathi Platelet mean volume (Bld) [Entitic vol] 9.0 fL Critically low 9.5-13.5 [facility] Comment on above: Performed By: #### C BC ####[facility] Qkfxlppmwc189[address] [place], [place] [address]DrKianna Tripathi PLT 332 103/ul Normal 150-450 [facility] Comment on above: Performed By: #### C BC ####[facility] Hzhkgfxxny7948[address] [place], [place] [address]Dr. Airam Tripathi RBC 3.04 106/ul Critically low 4.20-5.40 [facility] Comment on above: Performed By: #### C BC ####[facility] [address]kdchdpdxn65[address] [place] [address]Dr. Airam Tripathi WBC 7.7 103/ul Normal 4.0-11.0 [facility] Comment on above: Performed By: #### C BC ####[facility] Wxwleesxyh5[address] [place] [address]DrKianna Tripathi PROF 14(COMP METB)on 023 Albumin [Mass/Vol] 3.2 g/dL Critically low 3.4-5.0 e [facility] Comment on above: Performed By: #### C MP ####[facility] Eothpddnxx399[address] [place], [place] [address]DrKianna Tripathi Albumin/Globulin [Mass ratio] 0.9 {ratio} Normal [facility] Comment on above: Performed By: #### C MP ####[facility] Tnjxlhyhyp[address] [place], [place] [address]DrKianna Tripathi ALP [Catalytic activity/Vol] 135 U/L Critically high 46-116 [facility] Comment on above: Performed By: #### C MP ####[facility] Ysdhpzlngf[address] [place], [place] [address]DrKianna Tripathi ALT [Catalytic activity/Vol] 25 U/L Normal 14-59 [facility] Comment on above: Performed By: #### C MP ####[facility] Rcihecyvtv[address] [place], [place] [address]DrKianna Tripathi Anion gap [Moles/Vol] 9.1 mmol/L Normal [facility] Comment on above: Performed By: #### C MP ####[facility] Jxgvhmlvqk[address] [place], [place] [address]DrKianna Tripathi AST [Catalytic activity/Vol] 34 U/L Normal 15-37 [facility] Comment on above: Performed By: #### C MP ####[facility] Imwgvlveqb7555[address] [place], [place] [address]DrKianna Tripathi Bilirubin [Mass/Vol] 0.3 mg/dL Normal 0.2-1.0 [facility] Comment on above: Performed By: #### C MP ####[facility] Hskubyzzge16[address] [place], [place] [address]Dr. Airam Tripathi Calcium [Mass/Vol] 8.6 mg/dL Normal 8.5-10.1 [facility] Comment on above: Performed By: #### C MP ####[facility] Hohbaphnjc794[address] [place], [place] [address]Dr. Airam Tripathi Chloride [Moles/Vol] 99 mmol/L Normal 98-107 [facility] Comment on above: Performed By: #### C MP ####[facility] Egqynbsrvu6324[address] [place], [place] [address]Dr. Airam Tripathi CO2 [Moles/Vol] 29.1 mmol/L Normal 21.0-32.0 [facility] Comment on above: Performed By: #### C MP ####[facility] Vnbtdzjjaj3230[address] [place], [place] [address]Dr. Airam Tripathi Creatinine [Mass/Vol] 1.40 mg/dL Critically high 0.55-1.02 [facility] Comment on above: Performed By: #### C MP ####[facility] Ubyaggnvgo[address]224[address] [place], [place] [address]Dr. Airam Tripathi EGFR-AF ISRAELI 46 mL/min/1.73m2 Critically low >=60 [facility] Comment on above: Performed By: #### C MP ####[facility] Fmzcumwbwz130[address] [place], [place] [address]Dr. Airam Tripathi EGFR-NON AF ISRAELI 38 mL/min/1.73m2 Critically low >=60 [facility] Comment on above: Performed By: #### C MP ####[facility] Idxcjpumbn599[address] [place], [place] [address]Dr. Airam Tripathi Globulin (S) [Mass/Vol] 3.4 g/dL Normal [facility] Comment on above: Performed By: #### C MP ####[facility] Rajwllcuhp239[address] [place], [place] [address]Dr. Airam Tripathi Glucose [Mass/Vol] 83 mg/dL Normal 74-106 [facility] Comment on above: Performed By: #### C MP ####[facility] [address] [place] [address]Dr. Airam Tripathi Potassium [Moles/Vol] 4.2 mmol/L Normal 3.5-5.1 [facility] Comment on above: Performed By: #### C MP ####[facility] Gqkuvtapof66[address] [place], [place] [address]Dr. Airam Tripathi Protein [Mass/Vol] 6.6 g/dL Normal 6.4-8.2 [facility] Comment on above: Performed By: #### C MP ####[facility] Qkpibwkxwj35[address] [place], [place] [address]Dr. Aiarm Tripathi Sodium [Moles/Vol] 133 mmol/L Critically low 136-145 Th [facility] Comment on above: Performed By: #### C MP ####[facility] Sswigvktyr19[address] [place], [place] [address]Dr. Airam Tripathi Urea nitrogen [Mass/Vol] 37.0 mg/dL Critically high 7.0-18.0 [facility] Comment on above: Performed By: #### C MP ####[facility] Ulkmiwltiz[address] [place], [place] [address]Dr. Airam Tripathi Urea nitrogen/Creatinine [Mass ratio] 26.4 mg/mg Normal [facility] Comment on above: Performed By: #### C MP ####[facility] Uvhndxtjto246[address] [place], [place] [address]Dr. Airam Tripathi BNPon 06-18-2022 Natriuretic peptide B (Bld) [Mass/Vol] 5826.0 pg/mL Critically high <=900.0 [facility] Comment on above: Performed By: #### B QUALITY ASSURANCE CLERK, CMP ####[facility] Bgxfjkwbhj[address] [place], [place] [address]Dr. Airam Tripathi CBC AUTO DIFFon 06-18-2022 BASO # 0.0 103/ul Normal 0.0-0.1 [facility] Comment on above: Performed By: #### C BC ####[facility] [address] [place] [id number]. Airam Tripathi Basophils/100 WBC (Bld) 0.4 % Normal 0.2-2.0 [facility] Comment on above: Performed By: #### C BC ####[facility] [address] [place] [phone]. Airam Tripathi EO # 0.1 103/ul Normal 0.0-0.7 [facility] Comment on above: Performed By: #### C BC ####[facility] Jnufxicmvy[address] [place], [place] [address]Dr. Airam Tripathi Eosinophils/100 WBC (Bld) 1.3 % Normal 0.9-7.0 [facility] Comment on above: Performed By: #### C BC ####[facility] Ikcpylrgmr[address] [place], [place] [address]Dr. Airam Tripathi Erythrocyte distribution width (RBC) [Ratio] 13.4 % Normal 11.0-15.0 [facility] Comment on above: Performed By: #### C BC ####[facility] Tupv[address]ijy[address] [place], [place] [address]Dr. Ariam Tripathi Hematocrit (Bld) [Volume fraction] 27.3 % Critically low 36.0-48.0 [facility] Comment on above: Performed By: #### C BC ####[facility] [address] [place] [phone]. Airam Tripathi Hemoglobin (Bld) [Mass/Vol] 8.6 g/dL Critically low 12.0-16.0 [facility] Comment on above: Performed By: #### C BC ####[facility] [address]ozt[address] [place] [phone]. Airam Tripathi IG # 0.08 10e3/ul Critically high 0.00-0.03 [facility] Comment on above: Performed By: #### C BC ####[facility] [address] [place], [place] [address]Dr. Airam Tripathi IG % 0.8 % Critically high 0.0-0.5 [facility] Comment on above: Performed By: #### C BC ####[facility] [address]qs[address] [place] [phone]. Airam Tripathi LYMPH # 1.9 103/ul Normal 1.2-3.8 [facility] Comment on above: Performed By: #### C BC ####[facility] [address] [place] [phone]. Airam Tripathi Lymphocytes/100 WBC (Bld) 19.3 % Critically low 20.5-60.0 [facility] Comment on above: Performed By: #### C BC ####[facility] [address]hs[address] [place] [phone]. Airam Tripathi MANUAL DIFF REQ NO Normal [facility] Comment on above: Performed By: #### C BC ####[facility] [address] [place] [address]Dr. Airam Tripathi MCH (RBC) [Entitic mass] 29.6 pg Normal 26.7-34.0 [facility] Comment on above: Performed By: #### C BC ####[facility] [address]urtt[address] [place] [phone]. Airam Tripathi MCHC (RBC) [Mass/Vol] 31.5 g/dL Normal 29.9-35.2 [facility] Comment on above: Performed By: #### C BC ####[facility] [address]wh[address]rxv[address] [place] [phone]. Airam Tripathi MCV (RBC) [Entitic vol] 93.8 fL Normal 81.0-99.0 [facility] Comment on above: Performed By: #### C BC ####[facility] [address]me[address] [place] [phone]. Airam Tripathi MONO # 0.6 103/ul Normal 0.3-0.8 [facility] Comment on above: Performed By: #### C BC ####[facility] [address]ph[address] [place] [phone]. Airam Tripathi Monocytes/100 WBC (Bld) 6.5 % Normal 1.7-12.0 [facility] Comment on above: Performed By: #### C BC ####[facility] [address]kgk[address] [place] [phone]. Airam Tripathi NEUT # 6.9 103/ul Critically high 1.4-6.5 [facility] Comment on above: Performed By: #### C BC ####[facility] B[address]wf[address] [place] [phone]. Airam Tripathi Neutrophils/100 WBC (Bld) 71.7 % Normal 43.0-75.0 [facility] Comment on above: Performed By: #### C BC ####[facility] [address]tes[address]v17[address] [place] [phone]. Airam Tripathi Platelet mean volume (Bld) [Entitic vol] 8.5 fL Critically low 9.5-13.5 [facility] Comment on above: Performed By: #### C BC ####[facility] [address] [place] [phone]. Airam Tripathi PLT 295 103/ul Normal 150-450 [facility] Comment on above: Performed By: #### C BC ####[facility] [address]nsn4[address] [place] [phone]. Airam Tripathi RBC 2.91 106/ul Critically low 4.20-5.40 [facility] Comment on above: Performed By: #### C BC ####[facility] Hmidncrcxs16[address] [place] [phone]. Airam Tripathi WBC 9.7 103/ul Normal 4.0-11.0 [facility] Comment on above: Performed By: #### C BC ####[facility] [address]vdrwuqd99[address] [place] [phone]. Selenaneil Tripathi PROF 14(COMP METB)on 06-18- 022 Albumin [Mass/Vol] 2.8 g/dL Critically low 3.4-5.0 [facility] Comment on above: Performed By: #### B QUALITY ASSURANCE CLERK, CMP ####[facility] [address]omrfv[address] [place] [phone]. Airam Tripathi Albumin/Globulin [Mass ratio] 0.9 {ratio} Normal [facility] Comment on above: Performed By: #### B QUALITY ASSURANCE CLERK, CMP ####[facility] [address]jayqz24[address] [place] [address]Dr. Airam Tripathi ALP [Catalytic activity/Vol] 125 U/L Critically high 46-116 [facility] Comment on above: Performed By: #### B QUALITY ASSURANCE CLERK, CMP ####[facility] T[address]wlyjtnn64[address] [place] [address]Dr. Airam Tripathi ALT [Catalytic activity/Vol] 16 U/L Normal 14-59 [facility] Comment on above: Performed By: #### B QUALITY ASSURANCE CLERK, CMP ####[facility] Uzd[address]jfeae[address] [place], [place] [address]Dr. Selenaneil Deuce Anion gap [Moles/Vol] 11.4 mmol/L Normal [facility] Comment on above: Performed By: #### B QUALITY ASSURANCE CLERK, CMP ####[facility] Gaxsvnsgxv8[address] [place], [place] [address]Dr. Airam Tripathi AST [Catalytic activity/Vol] 23 U/L Normal 15-37 [facility] Comment on above: Performed By: #### B QUALITY ASSURANCE CLERK, CMP ####[facility] Pspqvbexno815[address] [place], [place] [address]Dr. Airam Tripathi Bilirubin [Mass/Vol] 0.2 mg/dL Normal 0.2-1.0 [facility] Comment on above: Performed By: #### B QUALITY ASSURANCE CLERK, CMP ####[facility] Skwe[address]aukm[address] [place], [place] [address]Dr. Airam Tripathi Calcium [Mass/Vol] 8.1 mg/dL Critically low 8.5-10.1 [facility] Comment on above: Performed By: #### B QUALITY ASSURANCE CLERK, CMP ####[facility] U[address]wfetxhk15[address] [place], [place] [address]Dr. Airam Tripathi Chloride [Moles/Vol] 96 mmol/L Critically low 98-107 [facility] Comment on above: Performed By: #### B QUALITY ASSURANCE CLERK, CMP ####[facility] Hhxpvlvpqu[address] [place], [place] [address]Dr. Airam Tripathi CO2 [Moles/Vol] 26.6 mmol/L Normal 21.0-32.0 [facility] Comment on above: Performed By: #### B QUALITY ASSURANCE CLERK, CMP ####[facility] O[address]sljox[address] [place] [address]Dr. Airam Deuce Creatinine [Mass/Vol] 1.31 mg/dL Critically high 0.55-1.02 [facility] Comment on above: Performed By: #### B QUALITY ASSURANCE CLERK, CMP ####[facility] J[address]kg[address]zpo45[address] [place] [address]Dr. Selenaneil Deuce EGFR-AF ISRAELI 50 mL/min/1.73m2 Critically low >=60 [facility] Comment on above: Performed By: #### B QUALITY ASSURANCE CLERK, CMP ####[facility] Sooeqxqkpv[address] [place], [place] [address]Dr. Airam Tripathi EGFR-NON AF ISRA[place]I 41 mL/min/1.73m2 Critically low >=60 [facility] Comment on above: Performed By: #### B QUALITY ASSURANCE CLERK, CMP ####[facility] H[address]msksgtqu3870[address] [place], [place] [address]Dr. Airam Tripathi Globulin (S) [Mass/Vol] 3.0 g/dL Normal [facility] Comment on above: Performed By: #### B QUALITY ASSURANCE CLERK, CMP ####[facility] Mnmklxrrhe3750[address] [place], [place] [address]Dr. Airam Tripathi Glucose [Mass/Vol] 82 mg/dL Normal 74-106 [facility] Comment on above: Performed By: #### B QUALITY ASSURANCE CLERK, CMP ####[facility] Xomrssfzhy[address] [place], [place] [address]Dr. Airam Tripathi Potassium [Moles/Vol] 4.0 mmol/L Normal 3.5-5.1 [facility] Comment on above: Performed By: #### B QUALITY ASSURANCE CLERK, CMP ####[facility] V[address]ryhjpen[address]30[address] [place], [place] [address]Dr. Airam Tripathi Protein [Mass/Vol] 5.8 g/dL Critically low 6.4-8.2 Th e [facility] Comment on above: Performed By: #### B QUALITY ASSURANCE CLERK, CMP ####[facility] R[address]fdhztkll6790[address] [place], [place] [address]Dr. Airam Tripathi Sodium [Moles/Vol] 130 mmol/L Critically low 136-145 Th e [facility] Comment on above: Performed By: #### B QUALITY ASSURANCE CLERK, CMP ####[facility] Ovlbjvlgbr[address] [place], [place] [address]Dr. Airam Tripathi Urea nitrogen [Mass/Vol] 19.0 mg/dL Critically high 7.0-18.0 [facility] Comment on above: Performed By: #### B QUALITY ASSURANCE CLERK, CMP ####[facility] Jkmvxnnpfh[address] [place], [place] [address]Dr. Airam Tripathi Urea nitrogen/Creatinine [Mass ratio] 14.5 mg/mg Normal [facility] Comment on above: Performed By: #### B QUALITY ASSURANCE CLERK, CMP ####[facility] Wvpztgiovb9097[address] [place], [place] [address]Dr. Airam Tripathi BNPon 06-17-2022 Natriuretic peptide B (Bld) [Mass/Vol] 2510.0 pg/mL Critically high <=900.0 [facility] Comment on above: Performed By: #### B QUALITY ASSURANCE CLERK, CMP ####[facility] F[address]25[address] [place], [place] [address]Dr. Airam Tripathi CBC AUTO DIFFon 06-17-2022 BASO # 0.0 103/ul Normal 0.0-0.1 [facility] Comment on above: Performed By: #### C BC ####[facility] Rhwhrecrxr9[address] [place], [place] [address]Dr. Airam Deuce Basophils/100 WBC (Bld) 0.4 % Normal 0.2-2.0 [facility] Comment on above: Performed By: #### C BC ####[facility] Mmwlqwmzpw[address] [place], [place] [address]Dr. Airam Tripathi EO # 0.0 103/ul Normal 0.0-0.7 [facility] Comment on above: Performed By: #### C BC ####[facility] Jiwjdvwwer[address] [place], [place] [address]Dr. Airam Tripathi Eosinophils/100 WBC (Bld) 0.3 % Critically low 0.9-7.0 [facility] Comment on above: Performed By: #### C BC ####[facility] Ccigaqhbsn5[address] [place] [address]Dr. Airam Tripathi Erythrocyte distribution width (RBC) [Ratio] 13.6 % Normal 11.0-15.0 [facility] Comment on above: Performed By: #### C BC ####[facility] [address]rtqn[address] [place], [place] [address]Dr. Airam Tripathi Hematocrit (Bld) [Volume fraction] 28.9 % Critically low 36.0-48.0 [facility] Comment on above: Performed By: #### C BC ####[facility] [address]zqnedlcqe[address] [place], [place] [address]Dr. Airam Tripathi Hemoglobin (Bld) [Mass/Vol] 8.9 g/dL Critically low 12.0-16.0 [facility] Comment on above: Performed By: #### C BC ####[facility] [address]visktkar9764[address] [place], [place] [address]Dr. Airam Tripathi IG # 0.10 10e3/ul Critically high 0.00-0.03 [facility] Comment on above: Performed By: #### C BC ####[facility] [address]wfigbey[address] [place], [place] [address]Dr. Airam Tripathi IG % 1.3 % Critically high 0.0-0.5 [facility] Comment on above: Performed By: #### C BC ####[facility] [address]zacvxu[address] [place], [place] [address]Dr. Airam Tripathi LYMPH # 0.7 103/ul Critically low 1.2-3.8 [facility] Comment on above: Performed By: #### C BC ####[facility] Ha[address]esctx7[address] [place], [place] [address]Dr. Airam Tripathi Lymphocytes/100 WBC (Bld) 8.1 % Critically low 20.5-60.0 [facility] Comment on above: Performed By: #### C BC ####[facility] [address]esxnqbw[address] [place], [place] [address]Dr. Airam Tripathi MANUAL DIFF REQ NO Normal [facility] Comment on above: Performed By: #### C BC ####[facility] Cmszdbwedy[address] [place] [phone]. Airam Deuce MCH (RBC) [Entitic mass] 29.4 pg Normal 26.7-34.0 [facility] Comment on above: Performed By: #### C BC ####[facility] Cisdralwvq20[address] [place] [phone]. Airam Deuce MCHC (RBC) [Mass/Vol] 30.8 g/dL Normal 29.9-35.2 [facility] Comment on above: Performed By: #### C BC ####[facility] Hvpjfnavwn69[address] [place] [phone]. Selenaneil Tripathi MCV (RBC) [Entitic vol] 95.4 fL Normal 81.0-99.0 [facility] Comment on above: Performed By: #### C BC ####[facility] Yphyoldn[address] [place], [place] [address]Dr. Airam Tripathi MONO # 0.3 103/ul Normal 0.3-0.8 [facility] Comment on above: Performed By: #### C BC ####[facility] Pnccpbpwnk[address] [place] [address]Dr. Airam Tripathi Monocytes/100 WBC (Bld) 3.1 % Normal 1.7-12.0 [facility] Comment on above: Performed By: #### C BC ####[facility] Gedjnorsve[address] [place], [place] [address]Dr. Airam Tripathi NEUT # 7.0 103/ul Critically high 1.4-6.5 [facility] Comment on above: Performed By: #### C BC ####[facility] Xspmkunwgt8826 [place] [phone]. Airam Tripathi Neutrophils/100 WBC (Bld) 86.8 % Critically high 43.0-75.0 [facility] Comment on above: Performed By: #### C BC ####[facility] Seqzavurig[address] [place] [phone]. Airam Tripathi Platelet mean volume (Bld) [Entitic vol] 8.3 fL Critically low 9.5-13.5 [facility] Comment on above: Performed By: #### C BC ####[facility] Xobzvwacjt9623 [place] [phone]. Airam Tripathi PLT 279 103/ul Normal 150-450 [facility] Comment on above: Performed By: #### C BC ####[facility] Yyraudyghi[address] [place] [phone]. Selenaneil Deuce RBC 3.03 106/ul Critically low 4.20-5.40 [facility] Comment on above: Performed By: #### C BC ####[facility] Dsxujrgepp5[address] [place] [phone]. Airam Tripathi WBC 8.0 103/ul Normal 4.0-11.0 [facility] Comment on above: Performed By: #### C BC ####[facility] Jwmyccvmut9[address] [place] [address]Dr. Airam Tripathi PROF 14(COMP METB)on 022 Albumin [Mass/Vol] 2.8 g/dL Critically low 3.4-5.0 [facility] Comment on above: Performed By: #### B QUALITY ASSURANCE CLERK, CMP ####[facility] Nixhctawhk[address] [place] [address]Dr. Airam Tripathi Albumin/Globulin [Mass ratio] 0.9 {ratio} Normal [facility] Comment on above: Performed By: #### B QUALITY ASSURANCE CLERK, CMP ####[facility] Arnyobygcl[address] [place] [address]Dr. Airam Tripathi ALP [Catalytic activity/Vol] 136 U/L Critically high 46-116 [facility] Comment on above: Performed By: #### B QUALITY ASSURANCE CLERK, CMP ####[facility] Vidrmisfpd5969 [place] [address]Dr. Airam Tripathi ALT [Catalytic activity/Vol] 17 U/L Normal 14-59 [facility] Comment on above: Performed By: #### B QUALITY ASSURANCE CLERK, CMP ####[facility] Cccbrzwdib57[address] [place] [address]Dr. Airam Tripathi Anion gap [Moles/Vol] 12.9 mmol/L Normal [facility] Comment on above: Performed By: #### B QUALITY ASSURANCE CLERK, CMP ####[facility] Swlhbrwfcj9[address] [place] [phone]. Airam Tripathi AST [Catalytic activity/Vol] 24 U/L Normal 15-37 [facility] Comment on above: Performed By: #### B QUALITY ASSURANCE CLERK, CMP ####[facility] Wqnslkedod4312 [place] [phone]. Airam Tripathi Bilirubin [Mass/Vol] 0.2 mg/dL Normal 0.2-1.0 [facility] Comment on above: Performed By: #### B QUALITY ASSURANCE CLERK, CMP ####[facility] Uaffkudxkq[address] [place], [place] [address]Dr. Airam Tripathi Calcium [Mass/Vol] 8.7 mg/dL Normal 8.5-10.1 [facility] Comment on above: Performed By: #### B QUALITY ASSURANCE CLERK, CMP ####[facility] Kltfjsixyi[address] [place], [place] [address]Dr. Airam Tripathi Chloride [Moles/Vol] 102 mmol/L Normal 98-107 [facility] Comment on above: Performed By: #### B QUALITY ASSURANCE CLERK, CMP ####[facility] Tppedstpzv[address] [place], [place] [address]Dr. Airam Tripathi CO2 [Moles/Vol] 23.8 mmol/L Normal 21.0-32.0 [facility] Comment on above: Performed By: #### B QUALITY ASSURANCE CLERK, CMP ####[facility] Bpddcjzgzv[address] [place], [place] [address]Dr. Airam Tripathi Creatinine [Mass/Vol] 1.08 mg/dL Critically high 0.55-1.02 [facility] Comment on above: Performed By: #### B QUALITY ASSURANCE CLERK, CMP ####[facility] Rpszdemaif[address] [place], [place] [address]Dr. Airam Tripathi EGFR-AF ISRAELI >60 Normal >=60 [facility] Comment on above: Performed By: #### B QUALITY ASSURANCE CLERK, CMP ####[facility] [address] [place], [place] [address]Dr. Airam Deuce EGFR-NON AF ISRAELI 52 mL/min/1.73m2 Critically low >=60 [facility] Comment on above: Performed By: #### B QUALITY ASSURANCE CLERK, CMP ####[facility] Fcjofgclwm[address] [place], [place] [address]Dr. Airam Tripathi Globulin (S) [Mass/Vol] 3.2 g/dL Normal [facility] Comment on above: Performed By: #### B QUALITY ASSURANCE CLERK, CMP ####[facility] Egxirttwpn[address] [place], [place] [address]Dr. Airam Tripathi Glucose [Mass/Vol] 99 mg/dL Normal 74-106 [facility] Comment on above: Performed By: #### B QUALITY ASSURANCE CLERK, CMP ####[facility] Pizhjhyxyw[address] [place], [place] [address]Dr. Airam Tripathi Potassium [Moles/Vol] 4.7 mmol/L Normal 3.5-5.1 [facility] Comment on above: Performed By: #### B QUALITY ASSURANCE CLERK, CMP ####[facility] Zjpuvfsrkt8[address] [place], [place] [address]Dr. Airam Tripathi Protein [Mass/Vol] 6.0 g/dL Critically low 6.4-8.2 [facility] Comment on above: Performed By: #### B QUALITY ASSURANCE CLERK, CMP ####[facility] Vyrkcahqcu[address] [place], [place] [address]Dr. Airam Tripathi Sodium [Moles/Vol] 134 mmol/L Critically low 136-145 [facility] Comment on above: Performed By: #### B QUALITY ASSURANCE CLERK, CMP ####[facility] Szjzjzdxdc[address] [place], [place] [address]Dr. Airam Tripathi Urea nitrogen [Mass/Vol] 19.0 mg/dL Critically high 7.0-18.0 [facility] Comment on above: Performed By: #### B QUALITY ASSURANCE CLERK, CMP ####[facility] Mznnlpol[address] [place], [place] [address]Dr. Airam Tripathi Urea nitrogen/Creatinine [Mass ratio] 17.6 mg/mg Normal [facility] Comment on above: Performed By: #### B QUALITY ASSURANCE CLERK, CMP ####[facility] Lgllspftvf[address] [place], [place] [address]Dr. Airam Tripathi PROTIMEon 12-23-2022 INR Coag (PPP) [Relative time] 1.00 {INR} Normal [facility] Comment on above: Performed By: #### P T ####[facility] Sttctkbnkg[address] [place], [place] [address]Dr. Airam Tripathi INR GUIDELINES SEE BELOW Normal [facility] Comment on above: Result Comment: SIDRA RED INR: 2.0 - 3.0 CONDITIONS NOT LISTED BELOW 2.5 - 3.5 FOR PROSTHETIC HEART VALVE REPLACEMENT 2.5 - 3.5 RECURRENT THROMBOSIS Performed By: #### P T ####[facility] Pyjyeoruze[address] [place], [place] [address]Dr. Airam Deuce PT Coag (PPP) [Time] 10.8 s Normal 9.0-11.6 [facility] Comment on above: Performed By: #### P T ####[facility] Tozztipwto[address] [place], [place] [address]Dr. Airam Deuce PTTon 06-17-2022 aPTT Coag (Bld) [Time] 27.2 s Normal 22.3-36.2 [facility] Comment on above: Performed By: #### P TT ####[facility] Rqbihkfv[address] [place], [place] [address]Dr. Airam Tripathi BNPon 06-16-2022 Natriuretic peptide B (Bld) [Mass/Vol] 2293.0 pg/mL Critically high <=900.0 [facility] Comment on above: Performed By: #### C MP, BNP ####[facility] Pxzdqnooni4[address] [place], [place] [address]Dr. Airam Tripathi CBC AUTO DIFFon 06-16-2022 BASO # 0.0 103/ul Normal 0.0-0.1 [facility] Comment on above: Performed By: #### C BC ####[facility] Qaobecdxwj[address] [place], [place] [address]Dr. Airam Deuce Basophils/100 WBC (Bld) 0.4 % Normal 0.2-2.0 [facility] Comment on above: Performed By: #### C BC ####[facility] Zw[address]cejnlr[address] [place] [address]Dr. Airam Tripathi EO # 0.2 103/ul Normal 0.0-0.7 [facility] Comment on above: Performed By: #### C BC ####[facility] Tke[address]lcmev[address] [place] [address]Dr. Airam Tripathi Eosinophils/100 WBC (Bld) 3.0 % Normal 0.9-7.0 [facility] Comment on above: Performed By: #### C BC ####[facility] Bkrhirwhdm5675 [place] [address]Dr. Airam Tripathi Erythrocyte distribution width (RBC) [Ratio] 13.3 % Normal 11.0-15.0 [facility] Comment on above: Performed By: #### C BC ####[facility] Kdtefprmkz[address] [place], [place] [address]Dr. Airam Tripathi Hematocrit (Bld) [Volume fraction] 26.2 % Critically low 36.0-48.0 [facility] Comment on above: Performed By: #### C BC ####[facility] Djyrkjaiei[address] [place], [place] [address]Dr. Airam Tripathi Hemoglobin (Bld) [Mass/Vol] 8.3 g/dL Critically low 12.0-16.0 [facility] Comment on above: Performed By: #### C BC ####[facility] Ectfxevjwh8[address] [place] [address]Dr. Airam Tripathi IG # 0.08 10e3/ul Critically high 0.00-0.03 [facility] Comment on above: Performed By: #### C BC ####[facility] Dicrmsthcc1664 [place] [address]Dr. Airam Tripathi IG % 1.1 % Critically high 0.0-0.5 [facility] Comment on above: Performed By: #### C BC ####[facility] Dytxlfghma[address] [place], [place] [address]Dr. Airam Tripathi LYMPH # 1.2 103/ul Normal 1.2-3.8 [facility] Comment on above: Performed By: #### C BC ####[facility] Xjoirdodib7137 [place] [phone]. Airam Tripathi Lymphocytes/100 WBC (Bld) 17.3 % Critically low 20.5-60.0 [facility] Comment on above: Performed By: #### C BC ####[facility] Dvakccqfso18[address] [place] [address]Dr. Airam Deuce MANUAL DIFF REQ NO Normal [facility] Comment on above: Performed By: #### C BC ####[facility] Jmrehvicpz94[address] [place] [address]Dr. Airam Deuce MCH (RBC) [Entitic mass] 30.3 pg Normal 26.7-34.0 [facility] Comment on above: Performed By: #### C BC ####[facility] Drywxecrhq1186 [place] [address]Dr. Airam Deuce MCHC (RBC) [Mass/Vol] 31.7 g/dL Normal 29.9-35.2 [facility] Comment on above: Performed By: #### C BC ####[facility] Iyfqbeygwk[address] [place], [place] [address]Dr. Airam Deuce MCV (RBC) [Entitic vol] 95.6 fL Normal 81.0-99.0 [facility] Comment on above: Performed By: #### C BC ####[facility] H[address]uzvfapn[address] [place], [place] [address]Dr. Selenaneil Deuce MONO # 0.5 103/ul Normal 0.3-0.8 [facility] Comment on above: Performed By: #### C BC ####[facility] Rzgbubcrgl3578 [place] [address]Dr. Selenaneil Tripathi Monocytes/100 WBC (Bld) 7.1 % Normal 1.7-12.0 [facility] Comment on above: Performed By: #### C BC ####[facility] Lapalecgcv[address] [place], [place] [address]Dr. Airam Tripathi NEUT # 5.0 103/ul Normal 1.4-6.5 [facility] Comment on above: Performed By: #### C BC ####[facility] Ojgpsqewcg8296 [place] [address]Dr. Airam Tripathi Neutrophils/100 WBC (Bld) 71.1 % Normal 43.0-75.0 [facility] Comment on above: Performed By: #### C BC ####[facility] Qdgyfxqjox9298 [place] [address]Dr. Airam Tripathi Platelet mean volume (Bld) [Entitic vol] 8.2 fL Critically low 9.5-13.5 [facility] Comment on above: Performed By: #### C BC ####[facility] Drgvoraclk4872 [place] [address]Dr. Selenaneil Tripathi PLT 247 103/ul Normal 150-450 [facility] Comment on above: Performed By: #### C BC ####[facility] Pcnupbkrwi7090 [place] [address]Dr. Airam Tripathi RBC 2.74 106/ul Critically low 4.20-5.40 [facility] Comment on above: Performed By: #### C BC ####[facility] Miwxwbnsvr7887 [place] [address]Dr. Airam Tripathi WBC 7.1 103/ul Normal 4.0-11.0 [facility] Comment on above: Performed By: #### C BC ####[facility] Sdoxhtqeqe1560 [place] [address]Dr. Airam Deuce CTA CHEST WO W CONon 022 CTA CHEST WO W CON Normal [facility] PROF 14(COMP METB)on 022 Albumin [Mass/Vol] 2.6 g/dL Critically low 3.4-5.0 Th e [facility] Comment on above: Performed By: #### C MP, BNP ####[facility] Wojoqwdtxc1843 [place] [address]Dr. Airam Tripathi Albumin/Globulin [Mass ratio] 0.8 {ratio} Normal [facility] Comment on above: Performed By: #### C MP, BNP ####[facility] Yvxtvnqizk3408 [place] [address]Dr. Airam Tripathi ALP [Catalytic activity/Vol] 130 U/L Critically high 46-116 [facility] Comment on above: Performed By: #### C MP, BNP ####[facility] Lgnoaonptn4551 [place] [address]Dr. Airam Tripathi ALT [Catalytic activity/Vol] 12 U/L Critically low 14-59 [facility] Comment on above: Performed By: #### C MP, BNP ####[facility] Jeqvsgotaf3812 [place] [address]Dr. Selenaneil Tripathi Anion gap [Moles/Vol] 11.8 mmol/L Normal [facility] Comment on above: Performed By: #### C MP, BNP ####[facility] Jtxgjejahj[address] [place], [place] [address]Dr. Airam Deuce AST [Catalytic activity/Vol] 22 U/L Normal 15-37 [facility] Comment on above: Performed By: #### C MP, BNP ####[facility] Mrolopamwf[address] [place], [place] [address]Dr. Airam Tripathi Bilirubin [Mass/Vol] 0.2 mg/dL Normal 0.2-1.0 [facility] Comment on above: Performed By: #### C MP, BNP ####[facility] Ssosmvsynl107[address] [place], [place] [address]Dr. Airam Tripathi Calcium [Mass/Vol] 8.0 mg/dL Critically low 8.5-10.1 [facility] Comment on above: Performed By: #### C MP, BNP ####[facility] Zafyhyxxpx[address] [place], [place] [address]Dr. Airam Tripathi Chloride [Moles/Vol] 104 mmol/L Normal 98-107 [facility] Comment on above: Performed By: #### C MP, BNP ####[facility] Ivezjqxgfq6610[address] [place], [place] [address]Dr. Airam Tripathi CO2 [Moles/Vol] 22.8 mmol/L Normal 21.0-32.0 [facility] Comment on above: Performed By: #### C MP, BNP ####[facility] Hytgwzozab07[address] [place], [place] [address]Dr. Airam Tripathi Creatinine [Mass/Vol] 1.07 mg/dL Critically high 0.55-1.02 [facility] Comment on above: Performed By: #### C MP, BNP ####[facility] Lmbzdpbqdn8464 [place] [address]Dr. Airam Tripathi EGFR-AF ISRAELI >60 Normal >=60 [facility] Comment on above: Performed By: #### C MP, BNP ####[facility] Voxulibupz2002 [place] [address]Dr. Airam Tripathi EGFR-NON AF ISRA[place]I 52 mL/min/1.73m2 Critically low >=60 [facility] Comment on above: Performed By: #### C MP, BNP ####[facility] Onrwudcujg9[address] [place], [place] [address]Dr. Airam Tripathi Globulin (S) [Mass/Vol] 3.1 g/dL Normal [facility] Comment on above: Performed By: #### C MP, BNP ####[facility] Jbxkgjqkhw73[address] [place], [place] [address]Dr. Airam Tripathi Glucose [Mass/Vol] 85 mg/dL Normal 74-106 [facility] Comment on above: Performed By: #### C MP, BNP ####[facility] Yekrcuuygh6970[address] [place], [place] [address]Dr. Airam Tripathi Potassium [Moles/Vol] 4.6 mmol/L Normal 3.5-5.1 [facility] Comment on above: Performed By: #### C MP, BNP ####[facility] Mpfkiutoaw7640[address] [place], [place] [address]Dr. Airam Tripathi Protein [Mass/Vol] 5.7 g/dL Critically low 6.4-8.2 [facility] Comment on above: Performed By: #### C MP, BNP ####[facility] Jbsdqqgcev6[address] [place], [place] [address]Dr. Airam Tripathi Sodium [Moles/Vol] 134 mmol/L Critically low 136-145 Th [facility] Comment on above: Performed By: #### C MP, BNP ####[facility] Cnymiseujj15[address] [place], [place] [address]Dr. Airam Tripathi Urea nitrogen [Mass/Vol] 24.0 mg/dL Critically high 7.0-18.0 [facility] Comment on above: Performed By: #### C MP, BNP ####[facility] Miihauqoat9960[address] [place], [place] [address]Dr. Airam Tripathi Urea nitrogen/Creatinine [Mass ratio] 22.4 mg/mg Normal [facility] Comment on above: Performed By: #### C MP, BNP ####[facility] Izqgdidsbf62[address] [place], [place] [address]Dr. Airam Tripathi BNPon 06-15-2022 Natriuretic peptide B (Bld) [Mass/Vol] 934.0 pg/mL Critically high <=900.0 [facility] Comment on above: Performed By: #### C MP, BNP ####[facility] Qricidnlre20[address] [place], [place] [address]Dr. Airam Tripathi CBC AUTO DIFFon 06-15-2022 BASO # 0.0 103/ul Normal 0.0-0.1 [facility] Comment on above: Performed By: #### C BC ####[facility] Zlotqhxazd624[address] [place], [place] [address]Dr. Airam Tripathi Basophils/100 WBC (Bld) 0.2 % Normal 0.2-2.0 [facility] Comment on above: Performed By: #### C BC ####[facility] Nxbhrmezra32[address] [place], [place] [address]Dr. Airam Tripathi EO # 0.1 103/ul Normal 0.0-0.7 [facility] Comment on above: Performed By: #### C BC ####[facility] Vboemqdczp[address] [place], [place] [address]Dr. Airam Tripathi Eosinophils/100 WBC (Bld) 2.1 % Normal 0.9-7.0 [facility] Comment on above: Performed By: #### C BC ####[facility] Swaihssfci[address] [place], [place] [address]Dr. Airam Tripathi Erythrocyte distribution width (RBC) [Ratio] 12.9 % Normal 11.0-15.0 [facility] Comment on above: Performed By: #### C BC ####[facility] Fslnwwvlaq1346 [place] [address]Dr. Airam Tripathi Hematocrit (Bld) [Volume fraction] 24.9 % Critically low 36.0-48.0 [facility] Comment on above: Performed By: #### C BC ####[facility] Wcursospmr2968 [place] [address]Dr. Airam Tripathi Hemoglobin (Bld) [Mass/Vol] 7.9 g/dL Critically low 12.0-16.0 [facility] Comment on above: Performed By: #### C BC ####[facility] Fomdyepdgx996[address] [place], [place] [address]Dr. Airam Tripathi IG # 0.05 10e3/ul Critically high 0.00-0.03 [facility] Comment on above: Performed By: #### C BC ####[facility] Cwisdekryb6[address] [place], [place] [address]Dr. Airam Tripathi IG % 0.8 % Critically high 0.0-0.5 [facility] Comment on above: Performed By: #### C BC ####[facility] Mnrrvqogfp[address] [place], [place] [address]DrKianna Airam Tripathi LYMPH # 0.9 103/ul Critically low 1.2-3.8 [facility] Comment on above: Performed By: #### C BC ####[facility] Izcjyltgug69[address] [place], [place] [address]DrKianna Airam Tripathi Lymphocytes/100 WBC (Bld) 13.7 % Critically low 20.5-60.0 [facility] Comment on above: Performed By: #### C BC ####[facility] G[address]welvglx[address] [place], [place] [address]DrKianna Airam Tripathi MANUAL DIFF REQ NO Normal [facility] Comment on above: Performed By: #### C BC ####[facility] Kyjtxkmryk[address] [place], [place] [address]DrKianna Airam Tripathi MCH (RBC) [Entitic mass] 30.2 pg Normal 26.7-34.0 [facility] Comment on above: Performed By: #### C BC ####[facility] Ajoxbuyihk6514 [place] [phone] Tripathi MCHC (RBC) [Mass/Vol] 31.7 g/dL Normal 29.9-35.2 [facility] Comment on above: Performed By: #### C BC ####[facility] Vwktndelvo2364 [place] [phone] Tripathi MCV (RBC) [Entitic vol] 95.0 fL Normal 81.0-99.0 [facility] Comment on above: Performed By: #### C BC ####[facility] [address] [place], [place] [address]DrKianna Tripathi MONO # 0.4 103/ul Normal 0.3-0.8 [facility] Comment on above: Performed By: #### C BC ####[facility] W[address]thdciri[address] [place], [place] [address]DrKianna Tripathi Monocytes/100 WBC (Bld) 6.7 % Normal 1.7-12.0 [facility] Comment on above: Performed By: #### C BC ####[facility] Zwpzvggald[address] [place], [place] [address]DrKianna Tripathi NEUT # 5.0 103/ul Normal 1.4-6.5 [facility] Comment on above: Performed By: #### C BC ####[facility] [address] [place], [place] [address]DrKianna Tripathi Neutrophils/100 WBC (Bld) 76.5 % Critically high 43.0-75.0 [facility] Comment on above: Performed By: #### C BC ####[facility] J[address] [place], [place] [address]DrKianna Tripathi Platelet mean volume (Bld) [Entitic vol] 8.4 fL Critically low 9.5-13.5 [facility] Comment on above: Performed By: #### C BC ####[facility] N[address] [place], [place] [address]DrKianna Tripathi PLT 202 103/ul Normal 150-450 [facility] Comment on above: Performed By: #### C BC ####[facility] Rv[address]qjgh60[address] [place] [address]Dr. Airam Tripathi RBC 2.62 106/ul Critically low 4.20-5.40 [facility] Comment on above: Performed By: #### C BC ####[facility] Qontlbimwi40[address] [place] [address]Dr. Airam Tripathi WBC 6.6 103/ul Normal 4.0-11.0 [facility] Comment on above: Performed By: #### C BC ####[facility] Yzgncvrmul1834 [place] [address]Dr. Airam Tripathi OSMOLALITYon 06-15-2022 Osmolality [Osmolality] 269 mosm/kg Critically low 275-295 [facility] Comment on above: Performed By: #### O SMO ####[facility] B[address]wxdc[address] [place], [place] [address]Dr. Airam Tripathi PROF 14(COMP METB)on 022 Albumin [Mass/Vol] 2.5 g/dL Critically low 3.4-5.0 [facility] Comment on above: Performed By: #### C MP, BNP ####[facility] Scydadbmjo[address] [place], [place] [address]Dr. Airam Tripathi Albumin/Globulin [Mass ratio] 0.9 {ratio} Normal [facility] Comment on above: Performed By: #### C MP, BNP ####[facility] Dfxvytbxdt[address] [place] [address]Dr. Airam Tripathi ALP [Catalytic activity/Vol] 128 U/L Critically high 46-116 [facility] Comment on above: Performed By: #### C MP, BNP ####[facility] Ayqebcxspq69[address] [place] [address]Dr. Airam Tripathi ALT [Catalytic activity/Vol] 14 U/L Normal 14-59 [facility] Comment on above: Performed By: #### C MP, BNP ####[facility] Mrsftmslaj3405 [place] [address]Dr. Airam Tripathi Anion gap [Moles/Vol] 10.4 mmol/L Normal [facility] Comment on above: Performed By: #### C MP, BNP ####[facility] Kkqgqruioh5[address] [place], [place] [address]Dr. Airam Deuce AST [Catalytic activity/Vol] 23 U/L Normal 15-37 [facility] Comment on above: Performed By: #### C MP, BNP ####[facility] Qvmuffeelp317[address] [place], [place] [address]Dr. Airam Tripathi Bilirubin [Mass/Vol] 0.2 mg/dL Normal 0.2-1.0 [facility] Comment on above: Performed By: #### C MP, BNP ####[facility] Jqfqqnmbow2439[address] [place], [place] [address]Dr. Airam Tripathi Calcium [Mass/Vol] 7.4 mg/dL Critically low 8.5-10.1 [facility] Comment on above: Performed By: #### C MP, BNP ####[facility] Teftoofulq367[address] [place], [place] [address]Dr. Airam Tripathi Chloride [Moles/Vol] 99 mmol/L Normal 98-107 [facility] Comment on above: Performed By: #### C MP, BNP ####[facility] Cufcxethnu[address] [place], [place] [address]Dr. Airam Tripathi CO2 [Moles/Vol] 24.1 mmol/L Normal 21.0-32.0 [facility] Comment on above: Performed By: #### C MP, BNP ####[facility] Tvktvhqrza7511[address] [place], [place] [address]Dr. Airam Tripathi Creatinine [Mass/Vol] 1.45 mg/dL Critically high 0.55-1.02 [facility] Comment on above: Performed By: #### C MP, BNP ####[facility] Wyosgdyhvr265[address] [place], [place] [address]Dr. Airam Tripathi EGFR-AF ISRAELI 45 mL/min/1.73m2 Critically low >=60 [facility] Comment on above: Performed By: #### C MP, BNP ####[facility] Oxautxdxku[address] [place], [place] [address]Dr. Airam Tripathi EGFR-NON AF ISRAELI 37 mL/min/1.73m2 Critically low >=60 [facility] Comment on above: Performed By: #### C MP, BNP ####[facility] Agpjxhmduv3432[address] [place], [place] [address]Dr. Airam Tripathi Globulin (S) [Mass/Vol] 2.8 g/dL Normal [facility] Comment on above: Performed By: #### C MP, BNP ####[facility] Exlvvwlvmp1433[address] [place], [place] [address]Dr. Airam Tripathi Glucose [Mass/Vol] 82 mg/dL Normal 74-106 [facility] Comment on above: Performed By: #### C MP, BNP ####[facility] Xcsgbyseds9328[address] [place], [place] [address]Dr. Airam Tripathi Potassium [Moles/Vol] 4.5 mmol/L Normal 3.5-5.1 [facility] Comment on above: Performed By: #### C MP, BNP ####[facility] Qjidpujrlf8[address] [place], [place] [address]Dr. Airam Tripathi Protein [Mass/Vol] 5.3 g/dL Critically low 6.4-8.2 [facility] Comment on above: Performed By: #### C MP, BNP ####[facility] Bwueicshlp164[address] [place], [place] [address]Dr. Airam Tripathi Sodium [Moles/Vol] 129 mmol/L Critically low 136-145 [facility] Comment on above: Performed By: #### C MP, BNP ####[facility] Mfrqpdggha[address]17[address] [place], [place] [address]Dr. Airam Tripathi Urea nitrogen [Mass/Vol] 35.0 mg/dL Critically high 7.0-18.0 [facility] Comment on above: Performed By: #### C MP, BNP ####[facility] Udlciqvbxq2294[address] [place], [place] [address]Dr. Airam Tripathi Urea nitrogen/Creatinine [Mass ratio] 24.1 mg/mg Normal [facility] Comment on above: Performed By: #### C MP, BNP ####[facility] Ddslwhltpl[address] [place] [address]Dr. Selenaneil Tripathi T3, TOTAL (TRIIODOTHYRONINE) on 06-15-2022 T3, TOTAL 113 ng/dL Normal 71-180 [facility] Comment on above: Performed By: #### T 3TOTAL ####[facility] Qbjcdqcjxv[address] [place], [place] [address]Dr. Airam Deuce BNPon 06-14-2022 Natriuretic peptide B (Bld) [Mass/Vol] 1024.0 pg/mL Critically high <=900.0 [facility] Comment on above: Performed By: #### B QUALITY ASSURANCE CLERK, CMP ####[facility] Jxgsjkbutc039[address] [place], [place] [address]Dr. Airam Tripathi CARDIAC CONSUELO 3-6on 2 CK [Catalytic activity/Vol] 116 U/L Normal 26-192 [facility] Comment on above: Performed By: #### C MREP ####[facility] Xnfmrpeqkc7169[address] [place], [place] [address]Dr. Selenaneil Tripathi CK.MB [Mass/Vol] ng/mL Normal <=3.60 [facility] Comment on above: Performed By: #### C MREP ####[facility] Vluwfzqjjp0[address] [place], [place] [address]Dr. Airam Deuce HSTROP 6.0 pg/mL Normal 4.0-51.3 [facility] Comment on above: Result Comment: CUT- OFF POINTS HAVE BEEN ESTABLISHED BASED ON THE FOURTH UNIVERSAL DEFINITIONS OF MYOCARDIALINFARCTION. THE UPPER REFERENCE LIMIT (URL) OF TROPONIN, DEFINED THE 99TH PERCENTILE OFcTnI DISTRIBUTION IN A REFERENCE POPULATION, HAS BEEN CONFIRMED THE DECISION THRESHOLDFOR ID DIAGNOSIS. Performed By: #### C MREP ####[facility] Gzlkeegtbn6[address] [place], [place] [address]Dr. Airam Tripathi CBC AUTO DIFFon 06-14-2022 BASO # 0.0 103/ul Normal 0.0-0.1 [facility] Comment on above: Performed By: #### C BC ####[facility] Jmindomnob[address] [place], [place] [address]Dr. Airam Tripathi Basophils/100 WBC (Bld) 0.3 % Normal 0.2-2.0 [facility] Comment on above: Performed By: #### C BC ####[facility] Pxavdewcup53[address] [place], [place] [address]DrKianna Tripathi EO # 0.2 103/ul Normal 0.0-0.7 [facility] Comment on above: Performed By: #### C BC ####[facility] Woaiemgrrd8[address] [place], [place] [address]DrKianna Tripathi Eosinophils/100 WBC (Bld) 2.0 % Normal 0.9-7.0 [facility] Comment on above: Performed By: #### C BC ####[facility] Rdutradyne9548[address] [place], [place] [address]Dr. Airam Tripathi Erythrocyte distribution width (RBC) [Ratio] 12.8 % Normal 11.0-15.0 [facility] Comment on above: Performed By: #### C BC ####[facility] Greyxyxdqv6878[address] [place], [place] [address]Dr. Airam Tripathi Hematocrit (Bld) [Volume fraction] 27.4 % Critically low 36.0-48.0 [facility] Comment on above: Performed By: #### C BC ####[facility] Whxnzahkaj[address]70[address] [place], [place] [address]Dr. Airam Tripathi Hemoglobin (Bld) [Mass/Vol] 8.7 g/dL Critically low 12.0-16.0 [facility] Comment on above: Performed By: #### C BC ####[facility] Yrmidcgrzh[address] [place], [place] [address]DrKianna Tripathi IG # 0.11 10e3/ul Critically high 0.00-0.03 [facility] Comment on above: Performed By: #### C BC ####[facility] Lpngsfhmiz367[address] [place], [place] [address]DrKianna Tripathi IG % 1.1 % Critically high 0.0-0.5 [facility] Comment on above: Performed By: #### C BC ####[facility] Qemswdtwsw8025[address] [place], [place] [address]DrKianna Tripathi LYMPH # 0.9 103/ul Critically low 1.2-3.8 [facility] Comment on above: Performed By: #### C BC ####[facility] Rdmjyatcus55[address] [place] [address]DrKianna Tripathi Lymphocytes/100 WBC (Bld) 9.7 % Critically low 20.5-60.0 [facility] Comment on above: Performed By: #### C BC ####[facility] Ovupoiaklx6167[address] [place], [place] [address]DrKianna Tripathi MANUAL DIFF REQ NO Normal [facility] Comment on above: Performed By: #### C BC ####[facility] Nwrvkldvpn0557 [place] [address]DrKianna Tripathi MCH (RBC) [Entitic mass] 30.0 pg Normal 26.7-34.0 [facility] Comment on above: Performed By: #### C BC ####[facility] Faoqpnfywv4688[address] [place], [place] [address]DrKianna Tripathi MCHC (RBC) [Mass/Vol] 31.8 g/dL Normal 29.9-35.2 [facility] Comment on above: Performed By: #### C BC ####[facility] Htpfpiracc[address] [place], [place] [address]DrKianna Tripathi MCV (RBC) [Entitic vol] 94.5 fL Normal 81.0-99.0 [facility] Comment on above: Performed By: #### C BC ####[facility] Pmtzcvuaih8030[address] [place], [place] [address]DrKianna Tripathi MONO # 0.6 103/ul Normal 0.3-0.8 [facility] Comment on above: Performed By: #### C BC ####[facility] Exraqqkyhi[address] [place], [place] [address]DrKianna Tripathi Monocytes/100 WBC (Bld) 5.7 % Normal 1.7-12.0 [facility] Comment on above: Performed By: #### C BC ####[facility] Etgxaanaoh[address] [place], [place] [address]DrKianna Tripathi NEUT # 7.8 103/ul Critically high 1.4-6.5 [facility] Comment on above: Performed By: #### C BC ####[facility] Clgkgxzeef3096 [place] [address]Dr. Waltersneil Tripathi Neutrophils/100 WBC (Bld) 81.2 % Critically high 43.0-75.0 [facility] Comment on above: Performed By: #### C BC ####[facility] Wnqbhknnmr8272 [place] [address]Dr. Airam Tripathi Platelet mean volume (Bld) [Entitic vol] 8.6 fL Critically low 9.5-13.5 [facility] Comment on above: Performed By: #### C BC ####[facility] Fxsjmojokb3[address] [place], [place] [address]Dr. Airam Tripathi PLT 283 103/ul Normal 150-450 [facility] Comment on above: Performed By: #### C BC ####[facility] Kzegeqwyvl1435[address] [place], [place] [address]Dr. Airam Tripathi RBC 2.90 106/ul Critically low 4.20-5.40 [facility] Comment on above: Performed By: #### C BC ####[facility] Iumwdjupiu[address] [place], [place] [address]Dr. Ariam Tripathi WBC 9.6 103/ul Normal 4.0-11.0 [facility] Comment on above: Performed By: #### C BC ####[facility] Kcchgbmjni043[address] [place], [place] [address]Dr. Airam Tripathi OSMOLALITYon 06-14-2022 Osmolality [Osmolality] 273 mosm/kg Critically low 275-295 [facility] Comment on above: Performed By: #### O SMO ####[facility] Dzvmsovyxn8632[address] [place], [place] [address]Dr. Airam Tripathi PROF 14(COMP METB)on 022 Albumin [Mass/Vol] 3.2 g/dL Critically low 3.4-5.0 e [facility] Comment on above: Performed By: #### B QUALITY ASSURANCE CLERK, CMP ####[facility] Xeibbspczv7032 [place] [address]Dr. Airam Tripathi Albumin/Globulin [Mass ratio] 1.0 {ratio} Normal [facility] Comment on above: Performed By: #### B QUALITY ASSURANCE CLERK, CMP ####[facility] Aiskoiytwe[address]240 [place] [address]Dr. Airam Tripathi ALP [Catalytic activity/Vol] 154 U/L Critically high 46-116 [facility] Comment on above: Performed By: #### B QUALITY ASSURANCE CLERK, CMP ####[facility] Sgdfqtfqzc0712[address] [place], [place] [address]Dr. Airam Tripathi ALT [Catalytic activity/Vol] 17 U/L Normal 14-59 [facility] Comment on above: Performed By: #### B QUALITY ASSURANCE CLERK, CMP ####[facility] Boihzrmwke0627[address] [place], [place] [address]Dr. Selenaneil Deuce Anion gap [Moles/Vol] 12.0 mmol/L Normal [facility] Comment on above: Performed By: #### B QUALITY ASSURANCE CLERK, CMP ####[facility] Tjxecjnwes3616[address] [place], [place] [address]Dr. Airam Deuce AST [Catalytic activity/Vol] 25 U/L Normal 15-37 [facility] Comment on above: Performed By: #### B QUALITY ASSURANCE CLERK, CMP ####[facility] Gziuvyuzam526[address] [place], [place] [address]Dr. Selenaneil Deuce Bilirubin [Mass/Vol] 0.3 mg/dL Normal 0.2-1.0 [facility] Comment on above: Performed By: #### B QUALITY ASSURANCE CLERK, CMP ####[facility] Cquywhtstm4339[address] [place], [place] [address]Dr. Airam Tripathi Calcium [Mass/Vol] 7.6 mg/dL Critically low 8.5-10.1 [facility] Comment on above: Performed By: #### B QUALITY ASSURANCE CLERK, CMP ####[facility] Gvcqqqryoh3757[address] [place], [place] [address]Dr. Airam Tripathi Chloride [Moles/Vol] 92 mmol/L Critically low 98-107 [facility] Comment on above: Performed By: #### B QUALITY ASSURANCE CLERK, CMP ####[facility] [address] [place] [id number]. Airam Deuce CO2 [Moles/Vol] 25.2 mmol/L Normal 21.0-32.0 [facility] Comment on above: Performed By: #### B QUALITY ASSURANCE CLERK, CMP ####[facility] Ybgznzrhwz757[address] [place], [place] [address]Dr. Airam Deuce Creatinine [Mass/Vol] 1.83 mg/dL Critically high 0.55-1.02 [facility] Comment on above: Performed By: #### B QUALITY ASSURANCE CLERK, CMP ####[facility] Crnjkanype542[address] [place], [place] [address]Dr. Airam Tripathi EGFR-AF ISRAELI 34 mL/min/1.73m2 Critically low >=60 [facility] Comment on above: Performed By: #### B QUALITY ASSURANCE CLERK, CMP ####[facility] Rlswqomtxr9254[address] [place], [place] [address]Dr. Airam Tripathi EGFR-NON AF ISRAELI 28 mL/min/1.73m2 Critically low >=60 [facility] Comment on above: Performed By: #### B QUALITY ASSURANCE CLERK, CMP ####[facility] Ixisikwzkf2444[address] [place], [place] [address]Dr. Airam Tripathi Globulin (S) [Mass/Vol] 3.1 g/dL Normal [facility] Comment on above: Performed By: #### B QUALITY ASSURANCE CLERK, CMP ####[facility] Wmgfeefkyx6838[address] [place], [place] [address]Dr. Airam Tripathi Glucose [Mass/Vol] 77 mg/dL Normal 74-106 [facility] Comment on above: Performed By: #### B QUALITY ASSURANCE CLERK, CMP ####[facility] Damnxxkoma1725[address] [place], [place] [address]Dr. Airam Tripathi Potassium [Moles/Vol] 4.2 mmol/L Normal 3.5-5.1 [facility] Comment on above: Performed By: #### B QUALITY ASSURANCE CLERK, CMP ####[facility] Vepkmcblii075[address] [place], [place] [address]Dr. Airam Tripathi Protein [Mass/Vol] 6.3 g/dL Critically low 6.4-8.2 [facility] Comment on above: Performed By: #### B QUALITY ASSURANCE CLERK, CMP ####[facility] Iljvbzzpox94[address] [place] [address]Dr. Airam Tripathi Sodium [Moles/Vol] 125 mmol/L Critically low 136-145 Th e [facility] Comment on above: Performed By: #### B QUALITY ASSURANCE CLERK, CMP ####[facility] Vhxxoqwmkd106[address] [place], [place] [address]Dr. Airam Tripathi Urea nitrogen [Mass/Vol] 35.0 mg/dL Critically high 7.0-18.0 [facility] Comment on above: Performed By: #### B QUALITY ASSURANCE CLERK, CMP ####[facility] Pprjwygweh863[address] [place], [place] [address]Dr. Airam Tripathi Urea nitrogen/Creatinine [Mass ratio] 19.1 mg/mg Normal [facility] Comment on above: Performed By: #### B QUALITY ASSURANCE CLERK, CMP ####[facility] Guduroxewj964[address] [place], [place] [address]Dr. Airam Tripathi UA RANDOM W/MICROSCOPICon BACTERIA TRACE Abnormal NONE SEEN [facility] Comment on above: Performed By: #### U AMIC ####[facility] Foshduqgxy[address] [place], [place] [address]Dr. Airam Tripathi Bilirubin Ql (U) Negative Normal NEGATIVE [facility] Comment on above: Performed By: #### U AMIC ####[facility] Pimwerrspp[address] [place], [place] [address]Dr. Airam Tripathi CAST NONE SEEN Normal NONE SEEN [facility] Comment on above: Performed By: #### U AMIC ####[facility] Pyxybocvwc7137[address] [place], [place] [address]Dr. Airam Tripathi Clarity (U) CLEAR Normal CLEAR [facility] Comment on above: Performed By: #### U AMIC ####[facility] Smpgzcxaxh6365[address] [place], [place] [address]Dr. Airam Tripathi Color (U) LT. YELLOW Normal YELLOW [facility] Comment on above: Performed By: #### U AMIC ####[facility] Lxouuykffk8735[address] [place], [place] [address]Dr. Airam Tripathi Crystals LM Nom (Urine sed) NONE SEEN Normal NONE SEEN [facility] Comment on above: Performed By: #### U AMIC ####[facility] Jjomuxlfux75[address] [place] [address]Dr. Airam Deuce Epithelial cells LM Ql (Urine sed) FEW Abnormal NONE SEEN /RARE [facility] Comment on above: Performed By: #### U AMIC ####[facility] Qzzwuovesu8734 [place] [address]Dr. Airam Tripathi Glucose Ql (U) Negative Normal NEGATIVE [facility] Comment on above: Performed By: #### U AMIC ####[facility] Qraubntrnk54[address] [place], [place] [address]Dr. Selenaneil Tripathi Hemoglobin Ql (U) Negative Normal NEGATIVE [facility] Comment on above: Performed By: #### U AMIC ####[facility] Mnaowaccso4318[address] [place], [place] [address]Dr. Airam Tripathi Ketones Ql (U) Negative Normal NEGATIVE [facility] Comment on above: Performed By: #### U AMIC ####[facility] Tmkdnspwuf167[address] [place], [place] [address]Dr. Airam Tripathi LEUKOCYTES MODERATE Abnormal NEGATIVE [facility] Comment on above: Performed By: #### U AMIC ####[facility] [address]svthhbq[address] [place], [place] [address]Dr. Selenaneil Tripathi MUCOUS NONE SEEN Normal NONE SEEN [facility] Comment on above: Performed By: #### U AMIC ####[facility] Twctzotimw6[address] [place], [place] [address]Dr. Airam Tripathi Nitrite Ql (U) Negative Normal NEGATIVE [facility] Comment on above: Performed By: #### U AMIC ####[facility] Lwcyhgalhf7298[address] [place], [place] [address]Dr. Airam Tripathi pH (U) 5.5 [pH] Normal 5-9 [facility] Comment on above: Performed By: #### U AMIC ####[facility] Mvbaiqppar[address] [place], [place] [address]Dr. Airam Tripathi RBC 0-2 Normal 0-2 [facility] Comment on above: Performed By: #### U AMIC ####[facility] Scqjuqpmjv6[address] [place] [address]Dr. Airam Tripathi SPEC GRAVITY 1.020 Normal 1.005-<=1. 025 [facility] Comment on above: Performed By: #### U AMIC ####[facility] Vercxoxvyc9964 [place] [address]Dr. Airam Tripathi UA PROTEIN Negative Normal NEGATIVE/ TRACE [facility] Comment on above: Performed By: #### U AMIC ####[facility] Jmbeawfaea7798 [place] [address]Dr. Airam Tripathi Urobilinogen Qn (U) 0.2 {Ligia'U}/dL Normal 0.2 - 1. 0 [facility] Comment on above: Performed By: #### U AMIC ####[facility] [address]cxf[address]okjn[address] [place], [place] [address]Dr. Airam Tripathi WBC 5-10 Abnormal NONE SEEN [facility] Comment on above: Performed By: #### U AMIC ####[facility] Kxfmnjrbnn0859 [place] [address]Dr. Airam Tripathi BNPon 06-13-2022 Natriuretic peptide B (Bld) [Mass/Vol] 1496.0 pg/mL Critically high <=900.0 [facility] Comment on above: Performed By: #### T 4, BNP, MG, TSH, CMADM, CRP, CMP ####[facility] Sy[address]axncar[address] [place] [address]Dr. Airam Tripathi CARDIAC CONSUELO 3-6on 2 CK [Catalytic activity/Vol] 125 U/L Normal 26-192 [facility] Comment on above: Performed By: #### C MREP ####[facility] Xxjnptcymg[address] [place], [place] [address]Dr. Airam Tripathi CK.MB [Mass/Vol] ng/mL Normal <=3.60 [facility] Comment on above: Performed By: #### C MREP ####[facility] Rialkzwi[address] [place], [place] [address]Dr. Airam Tripathi HSTROP 5.8 pg/mL Normal 4.0-51.3 [facility] Comment on above: Result Comment: CUT- OFF POINTS HAVE BEEN ESTABLISHED BASED ON THE FOURTH UNIVERSAL DEFINITIONS OF MYOCARDIALINFARCTION. THE UPPER REFERENCE LIMIT (URL) OF TROPONIN, DEFINED THE 99TH PERCENTILE OFcTnI DISTRIBUTION IN A REFERENCE POPULATION, HAS BEEN CONFIRMED THE DECISION THRESHOLDFOR ID DIAGNOSIS. Performed By: #### C MREP ####[facility] [address] [place] [address]Dr. Airam Tripathi CARDIAC CONSUELO ADMITon 022 CK [Catalytic activity/Vol] 121 U/L Normal 26-192 [facility] Comment on above: Performed By: #### T 4, BNP, MG, TSH, CMADM, CRP, CMP ####[facility] Rvsiusifos[address] [place] [address]Dr. Airam Tripathi CK.MB [Mass/Vol] 3.06 ng/mL Normal <=3.60 [facility] Comment on above: Performed By: #### T 4, BNP, MG, TSH, CMADM, CRP, CMP ####[facility] Qkkdbyyszg[address] [place] [address]Dr. Airam Tripathi HSTROP 6.9 pg/mL Normal 4.0-51.3 [facility] Comment on above: Result Comment: CUT- OFF POINTS HAVE BEEN ESTABLISHED BASED ON THE FOURTH UNIVERSAL DEFINITIONS OF MYOCARDIALINFARCTION. THE UPPER REFERENCE LIMIT (URL) OF TROPONIN, DEFINED THE 99TH PERCENTILE OFcTnI DISTRIBUTION IN A REFERENCE POPULATION, HAS BEEN CONFIRMED THE DECISION THRESHOLDFOR ID DIAGNOSIS. Performed By: #### T 4, BNP, MG, TSH, CMADM, CRP, CMP ####[facility] [address]sc[address] [place] [address]Dr. Airam Tripathi KATHY 124 ng/mL Critically high 9-82 [facility] Comment on above: Performed By: #### T 4, BNP, MG, TSH, CMADM, CRP, CMP ####[facility] [address]is[address] [place] [address]Dr. Airam Tripathi CBC AUTO DIFFon 06-13-2022 BASO # 0.0 103/ul Normal 0.0-0.1 [facility] Comment on above: Performed By: #### C BC ####[facility] [address]du[address] [place] [address]Dr. Airam Tripathi Basophils/100 WBC (Bld) 0.2 % Normal 0.2-2.0 [facility] Comment on above: Performed By: #### C BC ####[facility] Vls[address] [place], [place] [address]DrKianna Tripathi EO # 0.2 103/ul Normal 0.0-0.7 [facility] Comment on above: Performed By: #### C BC ####[facility] Vxnqxewk[address] [place], [place] [address]Dr. Airam Tripathi Eosinophils/100 WBC (Bld) 1.5 % Normal 0.9-7.0 [facility] Comment on above: Performed By: #### C BC ####[facility] Wacouwhrfw[address] [place], [place] [address]DrKianna Tripathi Erythrocyte distribution width (RBC) [Ratio] 12.7 % Normal 11.0-15.0 [facility] Comment on above: Performed By: #### C BC ####[facility] Gewknrmxxw[address] [place], [place] [address]Dr. Airam Tripathi Hematocrit (Bld) [Volume fraction] 30.0 % Critically low 36.0-48.0 [facility] Comment on above: Performed By: #### C BC ####[facility] Wegsiclotc[address] [place], [place] [address]Dr. Airam Tripathi Hemoglobin (Bld) [Mass/Vol] 9.6 g/dL Critically low 12.0-16.0 [facility] Comment on above: Performed By: #### C BC ####[facility] Jypfecgqtj[address] [place], [place] [address]DrKianna Tripathi IG # 0.11 10e3/ul Critically high 0.00-0.03 [facility] Comment on above: Performed By: #### C BC ####[facility] Frrwgrnpyh[address] [place], [place] [address]Dr. Airam Tripathi IG % 1.1 % Critically high 0.0-0.5 [facility] Comment on above: Performed By: #### C BC ####[facility] E[address]olleweo[address] [place] [address]DrKianna Tripathi LYMPH # 1.5 103/ul Normal 1.2-3.8 [facility] Comment on above: Performed By: #### C BC ####[facility] Chykdhmpcw6[address] [place] [address]DrKianna Tripathi Lymphocytes/100 WBC (Bld) 14.9 % Critically low 20.5-60.0 [facility] Comment on above: Performed By: #### C BC ####[facility] Lqohdwnnra[address] [place], [place] [address]DrKianna Tripathi MANUAL DIFF REQ NO Normal [facility] Comment on above: Performed By: #### C BC ####[facility] Ogfruvuxdl225[address] [place] [address]DrKianna Tripathi MCH (RBC) [Entitic mass] 30.0 pg Normal 26.7-34.0 [facility] Comment on above: Performed By: #### C BC ####[facility] Sqghcopksd[address] [place], [place] [address]DrKianna Tripathi MCHC (RBC) [Mass/Vol] 32.0 g/dL Normal 29.9-35.2 [facility] Comment on above: Performed By: #### C BC ####[facility] Sxauvzcnwh[address] [place], [place] [address]DrKianna Tripathi MCV (RBC) [Entitic vol] 93.8 fL Normal 81.0-99.0 [facility] Comment on above: Performed By: #### C BC ####[facility] Jagrdyvujn[address] [place], [place] [address]DrKianna Tripathi MONO # 0.8 103/ul Normal 0.3-0.8 [facility] Comment on above: Performed By: #### C BC ####[facility] Pgswptojrp76[address] [place], [place] [address]DrKianna Tripathi Monocytes/100 WBC (Bld) 7.3 % Normal 1.7-12.0 [facility] Comment on above: Performed By: #### C BC ####[facility] Wwpinmoxph[address] [place], [place] [address]Dr. Airam Tripathi NEUT # 7.8 103/ul Critically high 1.4-6.5 [facility] Comment on above: Performed By: #### C BC ####[facility] Byzavsityo0127[address] [place], [place] [address]Dr. Airam Tripathi Neutrophils/100 WBC (Bld) 75.0 % Normal 43.0-75.0 [facility] Comment on above: Performed By: #### C BC ####[facility] Bucikbqbba[address] [place], [place] [address]Dr. Airam Tripathi Platelet mean volume (Bld) [Entitic vol] 9.1 fL Critically low 9.5-13.5 [facility] Comment on above: Performed By: #### C BC ####[facility] Bpujpap[address] [place], [place] [address]Dr. Airam Tripathi PLT 341 103/ul Normal 150-450 [facility] Comment on above: Performed By: #### C BC ####[facility] Oflingtqjc[address] [place], [place] [address]Dr. Airam Tripathi RBC 3.20 106/ul Critically low 4.20-5.40 [facility] Comment on above: Performed By: #### C BC ####[facility] [address]wz[address] [place], [place] [address]Dr. Airam Tripathi WBC 10.4 103/ul Normal 4.0-11.0 [facility] Comment on above: Performed By: #### C BC ####[facility] Gxpe[address]we[address] [place], [place] [address]Dr. Airam Tripathi CRPon 06-13-2022 CRP [Mass/Vol] mg/L Normal <=1.0 [facility] Comment on above: Performed By: #### T 4, BNP, MG, TSH, CMADM, CRP, CMP ####[facility] Trtdoqvbgn[address] [place], [place] [address]Dr. Airam Tripathi CT HEAD WO CONon 06-13-2022 CT HEAD WO CON Normal [facility] Covid-19 PCR (CVDTB)on 05-26 SARS-CoV-2 (COVID-19) RNA MIKE+probe Ql (Unsp spec) Not detected Normal NOT DETECTED [facility] Comment on above: Result Comment: [...] for this test is supported by the Home Economist of Health and Human Service's declaration that [...] be used). Performed By: #### C VDTBH ####[facility] [address] [place] [address]Dr. Airam Tripathi LACTATE/LACTIC ACIDon 2021 Lactate [Moles/Vol] 0.5 mmol/L Normal 0.4-1.9 [facility] Comment on above: Performed By: #### L ACT ####[facility] Nexrojtqcx[address] [place] [address]Dr. Airam Tripathi MAGNESIUMon 06-13-2022 Magnesium [Mass/Vol] 1.9 mg/dL Normal 1.8-2.4 [facility] Comment on above: Performed By: #### T 4, BNP, MG, TSH, CMADM, CRP, CMP ####[facility] [address] [place] [id number]. Airam Tripathi PROF 14(COMP METB)on 022 Albumin [Mass/Vol] 3.8 g/dL Normal 3.4-5.0 [facility] Comment on above: Performed By: #### T 4, BNP, MG, TSH, CMADM, CRP, CMP ####[facility] Unb[address]xost[address] [place] [address]Dr. Airam Tripathi Albumin/Globulin [Mass ratio] 1.1 {ratio} Normal [facility] Comment on above: Performed By: #### T 4, BNP, MG, TSH, CMADM, CRP, CMP ####[facility] [address] [place] [address]Dr. Airam Tripathi ALP [Catalytic activity/Vol] 161 U/L Critically high 46-116 [facility] Comment on above: Performed By: #### T 4, BNP, MG, TSH, CMADM, CRP, CMP ####[facility] C[address]rivao[address] [place] [address]Dr. Airam Triapthi ALT [Catalytic activity/Vol] 21 U/L Normal 14-59 [facility] Comment on above: Performed By: #### T 4, BNP, MG, TSH, CMADM, CRP, CMP ####[facility] R[address]iusk[address] [place] [address]Dr. Airam Tripathi Anion gap [Moles/Vol] 12.6 mmol/L Normal [facility] Comment on above: Performed By: #### T 4, BNP, MG, TSH, CMADM, CRP, CMP ####[facility] Ionp[address]tmqsz[address] [place] [address]Dr. Airam Tripathi AST [Catalytic activity/Vol] 30 U/L Normal 15-37 [facility] Comment on above: Performed By: #### T 4, BNP, MG, TSH, CMADM, CRP, CMP ####[facility] Othz[address]mfmp[address] [place] [address]Dr. Airam Tripathi Bilirubin [Mass/Vol] 0.3 mg/dL Normal 0.2-1.0 [facility] Comment on above: Performed By: #### T 4, BNP, MG, TSH, CMADM, CRP, CMP ####[facility] N[address] [place], [place] [address]Dr. Airam Tripathi Calcium [Mass/Vol] 8.8 mg/dL Normal 8.5-10.1 [facility] Comment on above: Performed By: #### T 4, BNP, MG, TSH, CMADM, CRP, CMP ####[facility] Chrvfcacrx[address] [place] [address]Dr. Airam Tripathi Chloride [Moles/Vol] 91 mmol/L Critically low 98-107 [facility] Comment on above: Performed By: #### T 4, BNP, MG, TSH, CMADM, CRP, CMP ####[facility] Eenqzjkstx[address] [place] [address]Dr. Airam Tripathi CO2 [Moles/Vol] 26.9 mmol/L Normal 21.0-32.0 [facility] Comment on above: Performed By: #### T 4, BNP, MG, TSH, CMADM, CRP, CMP ####[facility] Balaxoprfg[address] [place], [place] [address]Dr. Airam Tripathi Creatinine [Mass/Vol] 1.83 mg/dL Critically high 0.55-1.02 [facility] Comment on above: Performed By: #### T 4, BNP, MG, TSH, CMADM, CRP, CMP ####[facility] Jonhcdeuza[address] [place], [place] [address]Dr. Airam Tripathi EGFR-AF ISRAELI 34 mL/min/1.73m2 Critically low >=60 [facility] Comment on above: Performed By: #### T 4, BNP, MG, TSH, CMADM, CRP, CMP ####[facility] K[address]ftvewyh[address] [place] [address]Dr. Airam Tripathi EGFR-NON AF ISRAELI 28 mL/min/1.73m2 Critically low >=60 [facility] Comment on above: Performed By: #### T 4, BNP, MG, TSH, CMADM, CRP, CMP ####[facility] Pmhmmjedmk[address] [place], [place] [address]Dr. Airam Tripathi Globulin (S) [Mass/Vol] 3.5 g/dL Normal [facility] Comment on above: Performed By: #### T 4, BNP, MG, TSH, CMADM, CRP, CMP ####[facility] Lj[address]aacwa[address] [place] [address]Dr. Airam Tripathi Glucose [Mass/Vol] 96 mg/dL Normal 74-106 [facility] Comment on above: Performed By: #### T 4, BNP, MG, TSH, CMADM, CRP, CMP ####[facility] Sbfltuacnp39[address] [place] [address]Dr. Selenalan Tripathi Potassium [Moles/Vol] 4.5 mmol/L Normal 3.5-5.1 [facility] Comment on above: Performed By: #### T 4, BNP, MG, TSH, CMADM, CRP, CMP ####[facility] Xz[address]ewrpdct[address] [place], [place] [address]Dr. Airam Tripathi Protein [Mass/Vol] 7.3 g/dL Normal 6.4-8.2 [facility] Comment on above: Performed By: #### T 4, BNP, MG, TSH, CMADM, CRP, CMP ####[facility] Frwkhowqkv[address] [place], [place] [address]Dr. Selenalan Tripathi Sodium [Moles/Vol] 126 mmol/L Critically low 136-145 [facility] Comment on above: Performed By: #### T 4, BNP, MG, TSH, CMADM, CRP, CMP ####[facility] Olvfljerdf6674 [place] [address]Dr. Selenalan Tripathi Urea nitrogen [Mass/Vol] 34.0 mg/dL Critically high 7.0-18.0 [facility] Comment on above: Performed By: #### T 4, BNP, MG, TSH, CMADM, CRP, CMP ####[facility] Xnrjfrvcnv9205 [place] [address]Dr. Selenalan Tripathi Urea nitrogen/Creatinine [Mass ratio] 18.6 mg/mg Normal [facility] Comment on above: Performed By: #### T 4, BNP, MG, TSH, CMADM, CRP, CMP ####[facility] Egjfgfwvqv2[address] [place], [place] [address]Dr. Selenalan Tripathi Albumin [Mass/Vol] 3.4 g/dL Normal 3.4-5.0 [facility] Comment on above: Performed By: #### C MP ####[facility] Leqfsjggqj[address] [place] [address]Dr. Airam Tripathi Albumin/Globulin [Mass ratio] 1.0 {ratio} Normal [facility] Comment on above: Performed By: #### C MP ####[facility] Najwnncokq16[address] [place] [address]Dr. Airam Tripathi ALP [Catalytic activity/Vol] 151 U/L Critically high 46-116 [facility] Comment on above: Performed By: #### C MP ####[facility] Yygcqimtrf[address] [place], [place] [address]Dr. Airam Tripathi ALT [Catalytic activity/Vol] 20 U/L Normal 14-59 [facility] Comment on above: Performed By: #### C MP ####[facility] Chnisqnwti[address] [place], [place] [address]Dr. Airam Tripathi Anion gap [Moles/Vol] 11.7 mmol/L Normal [facility] Comment on above: Performed By: #### C MP ####[facility] Yetmakynrd[address] [place], [place] [address]Dr. Airam Tripathi AST [Catalytic activity/Vol] 28 U/L Normal 15-37 [facility] Comment on above: Performed By: #### C MP ####[facility] Jmjq[address]jeyg[address] [place], [place] [address]Dr. Airam Tripathi Bilirubin [Mass/Vol] 0.3 mg/dL Normal 0.2-1.0 [facility] Comment on above: Performed By: #### C MP ####[facility] Yxhgswyqne[address] [place], [place] [address]Dr. Airam Tripathi Calcium [Mass/Vol] 8.5 mg/dL Normal 8.5-10.1 [facility] Comment on above: Performed By: #### C MP ####[facility] Edozwiazwu[address] [place], [place] [address]Dr. Airam Tripathi Chloride [Moles/Vol] 91 mmol/L Critically low 98-107 [facility] Comment on above: Performed By: #### C MP ####[facility] Pxvhizwgzt6369 [place] [address]Dr. Airam Tripathi CO2 [Moles/Vol] 28.3 mmol/L Normal 21.0-32.0 [facility] Comment on above: Performed By: #### C MP ####[facility] Qpdqzzvmtz[address] [place] [id number]. Airam Tripathi Creatinine [Mass/Vol] 1.68 mg/dL Critically high 0.55-1.02 [facility] Comment on above: Performed By: #### C MP ####[facility] Rvqlhekzqt30[address] [place] [address]Dr. Airam Tripathi EGFR-AF ISRAELI 38 mL/min/1.73m2 Critically low >=60 [facility] Comment on above: Performed By: #### C MP ####[facility] Cmq[address]prqpc[address] [place], [place] [address]Dr. Airam Tripathi EGFR-NON AF ISRAELI 31 mL/min/1.73m2 Critically low >=60 [facility] Comment on above: Performed By: #### C MP ####[facility] Dlmuyicnel[address] [place], [place] [address]Dr. Airam Tripathi Globulin (S) [Mass/Vol] 3.5 g/dL Normal [facility] Comment on above: Performed By: #### C MP ####[facility] Jfuzlzqnmb25[address] [place] [address]Dr. Airam Tripathi Glucose [Mass/Vol] 74 mg/dL Normal 74-106 [facility] Comment on above: Performed By: #### C MP ####[facility] Ytdxpbmcsq6708 [place] [phone]. Airam Tripathi Potassium [Moles/Vol] 4.0 mmol/L Normal 3.5-5.1 [facility] Comment on above: Performed By: #### C MP ####[facility] [address] [place], [place] [address]Dr. Airam Tripathi Protein [Mass/Vol] 6.9 g/dL Normal 6.4-8.2 [facility] Comment on above: Performed By: #### C MP ####[facility] Qjwhjctdlx[address] [place], [place] [address]Dr. Airam Tripathi Sodium [Moles/Vol] 127 mmol/L Critically low 136-145 Th [facility] Comment on above: Performed By: #### C MP ####[facility] Stuxlxzfho[address] [place], [place] [address]Dr. Airam Tripathi Urea nitrogen [Mass/Vol] 29.0 mg/dL Critically high 7.0-18.0 [facility] Comment on above: Performed By: #### C MP ####[facility] Jmjbslmxfu[address] [place], [place] [address]Dr. Airam Tripathi Urea nitrogen/Creatinine [Mass ratio] 17.3 mg/mg Normal [facility] Comment on above: Performed By: #### C MP ####[facility] Dmhaq[address]dyyl[address] [place], [place] [address]Dr. Airam Tripathi T4on 06-13-2022 T4 [Mass/Vol] 6.80 ug/dL Normal 4.80-13.90 [facility] Comment on above: Performed By: #### T 4, BNP, MG, TSH, CMADM, CRP, CMP ####[facility] Ymlljyudhm[address] [place], [place] [address]Dr. Airam Tripathi TSHon 06-13-2022 TSH 0.101 uIU/mL Critically low 0.358-3.74 0 [facility] Comment on above: Performed By: #### T 4, BNP, MG, TSH, CMADM, CRP, CMP ####[facility] Fiduadbsnl[address] [place], [place] [address]Dr. Airam Tripathi OSMOLALITYon 06-08-2022 Osmolality [Osmolality] 272 mosm/kg Critically low 275-295 [facility] Comment on above: Performed By: #### O SMO ####[facility] Juodlnqohz[address] [place], [place] [address]Dr. Airam Tripathi CBC AUTO DIFFon 06-06-2022 BASO # 0.0 103/ul Normal 0.0-0.1 [facility] Comment on above: Performed By: #### C BC ####[facility] [address]qymeapdrp4[address] [place] [id number]. Airam Tripathi Basophils/100 WBC (Bld) 0.3 % Normal 0.2-2.0 [facility] Comment on above: Performed By: #### C BC ####[facility] Jlscgzxdgu97[address] [place] [phone]. Airam Tripathi EO # 0.2 103/ul Normal 0.0-0.7 [facility] Comment on above: Performed By: #### C BC ####[facility] Yems[address]on[address] [place], [place] [address]Dr. Airam Tripathi Eosinophils/100 WBC (Bld) 2.5 % Normal 0.9-7.0 [facility] Comment on above: Performed By: #### C BC ####[facility] Xogmefkdub[address] [place], [place] [address]Dr. Airam Tripathi Erythrocyte distribution width (RBC) [Ratio] 12.9 % Normal 11.0-15.0 [facility] Comment on above: Performed By: #### C BC ####[facility] Tyhkconkmk[address] [place], [place] [address]Dr. Airam Tripathi Hematocrit (Bld) [Volume fraction] 29.8 % Critically low 36.0-48.0 [facility] Comment on above: Performed By: #### C BC ####[facility] [address] [place], [place] [address]Dr. Airam Tripathi Hemoglobin (Bld) [Mass/Vol] 9.7 g/dL Critically low 12.0-16.0 [facility] Comment on above: Performed By: #### C BC ####[facility] K[address]csuebc[address] [place], [place] [address]Dr. Airam Tripathi IG # 0.03 10e3/ul Normal 0.00-0.03 [facility] Comment on above: Performed By: #### C BC ####[facility] Yizexpjdhz[address] [place], [place] [address]Dr. Airam Tripathi IG % 0.3 % Normal 0.0-0.5 [facility] Comment on above: Performed By: #### C BC ####[facility] [address]lefclh[address] [place] [phone]. Airam Tripathi LYMPH # 1.3 103/ul Normal 1.2-3.8 [facility] Comment on above: Performed By: #### C BC ####[facility] Ahotnpqxnb3497 [place] [phone]. Airam Tripathi Lymphocytes/100 WBC (Bld) 14.6 % Critically low 20.5-60.0 [facility] Comment on above: Performed By: #### C BC ####[facility] Bkxnucsfdr[address] [place] [address]Dr. Airam Tripathi MANUAL DIFF REQ NO Normal [facility] Comment on above: Performed By: #### C BC ####[facility] Ciwsz[address]uyu[address] [place], [place] [address]Dr. Airam Tripathi MCH (RBC) [Entitic mass] 30.6 pg Normal 26.7-34.0 [facility] Comment on above: Performed By: #### C BC ####[facility] [address]me[address] [place], [place] [address]Dr. Airam Tripathi MCHC (RBC) [Mass/Vol] 32.6 g/dL Normal 29.9-35.2 [facility] Comment on above: Performed By: #### C BC ####[facility] [address]dtxncy[address] [place] [address]Dr. Airam Tripathi MCV (RBC) [Entitic vol] 94.0 fL Normal 81.0-99.0 [facility] [facility] Comment on above: Performed By: #### C BC ####[facility] Vtuhcztvjp[address] [place] [phone]. Airam Tripathi MONO # 0.5 103/ul Normal 0.3-0.8 [facility] Comment on above: Performed By: #### C BC ####[facility] [address]tyx[address] [place], [place] [id number]. Airam Tripathi Monocytes/100 WBC (Bld) 5.7 % Normal 1.7-12.0 [facility] Comment on above: Performed By: #### C BC ####[facility] Nurpvezedg1586 [place] [phone]. Airam Tripathi NEUT # 6.9 103/ul Critically high 1.4-6.5 [facility] Comment on above: Performed By: #### C BC ####[facility] Xvbqwxgdzf4510 [place] [phone]. Airam Tripathi Neutrophils/100 WBC (Bld) 76.6 % Critically high 43.0-75.0 [facility] Comment on above: Performed By: #### C BC ####[facility] Snaabzrcpr4[address] [place] [address]Dr. Airam Tripathi Platelet mean volume (Bld) [Entitic vol] 9.2 fL Critically low 9.5-13.5 [facility] Comment on above: Performed By: #### C BC ####[facility] Agvuaxbgrt24[address] [place] [address]Dr. Airam Tripathi PLT 271 103/ul Normal 150-450 [facility] Comment on above: Performed By: #### C BC ####[facility] Gejatzjcxo1070 [place] [address]Dr. Airam Tripathi RBC 3.17 106/ul Critically low 4.20-5.40 [facility] Comment on above: Performed By: #### C BC ####[facility] Hkfpsoeqwp4134 [place] [address]Dr. Airam Tripathi WBC 9.1 103/ul Normal 4.0-11.0 [facility] Comment on above: Performed By: #### C BC ####[facility] Epvlvqnltk06[address] [place], [place] [address]Dr. Airam Tripathi PROF 14(COMP METB)on 2 022 Albumin [Mass/Vol] 3.4 g/dL Normal 3.4-5.0 [facility] Comment on above: Performed By: #### C MP ####[facility] Msjrxgcsen8237 [place] [address]Dr. Airam Tripathi Albumin/Globulin [Mass ratio] 1.0 {ratio} Normal [facility] Comment on above: Performed By: #### C MP ####[facility] Tkcewpdqrn4224 [place] [phone]. Airam Tripathi ALP [Catalytic activity/Vol] 156 U/L Critically high 46-116 [facility] Comment on above: Performed By: #### C MP ####[facility] Tmbvgwndyc7775 [place] [phone]. Airam Tripathi ALT [Catalytic activity/Vol] 18 U/L Normal 14-59 [facility] Comment on above: Performed By: #### C MP ####[facility] Vmdwdoxdox4235 [place] [phone]. Airam Tripathi Anion gap [Moles/Vol] 10.8 mmol/L Normal [facility] Comment on above: Performed By: #### C MP ####[facility] Ajoxtwddxm[address] [place], [place] [address]Dr. Airam Tripathi AST [Catalytic activity/Vol] 27 U/L Normal 15-37 [facility] Comment on above: Performed By: #### C MP ####[facility] Ezyaycgnpt[address] [place], [place] [address]Dr. Airam Tripathi Bilirubin [Mass/Vol] 0.2 mg/dL Normal 0.2-1.0 [facility] Comment on above: Performed By: #### C MP ####[facility] Lebuwebwkm65[address] [place], [place] [address]Dr. Airam Tripathi Calcium [Mass/Vol] 8.1 mg/dL Critically low 8.5-10.1 [facility] Comment on above: Performed By: #### C MP ####[facility] Zfmbralusj5860 [place] [address]Dr. Airam Tripathi Chloride [Moles/Vol] 92 mmol/L Critically low 98-107 [facility] Comment on above: Performed By: #### C MP ####[facility] Pfchogbxqc4713 [place] [address]Dr. Airam Tripathi CO2 [Moles/Vol] 27.4 mmol/L Normal 21.0-32.0 [facility] Comment on above: Performed By: #### C MP ####[facility] Zjbksqnuho0866 [place] [phone]. Airam Tripathi Creatinine [Mass/Vol] 1.57 mg/dL Critically high 0.55-1.02 [facility] Comment on above: Performed By: #### C MP ####[facility] Dqaojwfody1928 [place] [phone]. Airam Tripathi EGFR-AF ISRAELI 41 mL/min/1.73m2 Critically low >=60 [facility] Comment on above: Performed By: #### C MP ####[facility] Yestyrymnp[address] [place] [phone]. Airam Tripathi EGFR-NON AF ISRAELI 34 mL/min/1.73m2 Critically low >=60 [facility] Comment on above: Performed By: #### C MP ####[facility] Rtlxbitkax8119 [place] [phone]. Airam Tripathi Globulin (S) [Mass/Vol] 3.4 g/dL Normal [facility] Comment on above: Performed By: #### C MP ####[facility] Rpqfilthfo2850 [place] [phone]. Airam Tripathi Glucose [Mass/Vol] 82 mg/dL Normal 74-106 [facility] Comment on above: Performed By: #### C MP ####[facility] Tqhjjiczfn2361 [place] [phone]. Airam Tripathi Potassium [Moles/Vol] 4.2 mmol/L Normal 3.5-5.1 [facility] Comment on above: Performed By: #### C MP ####[facility] Ivmsuoambc9794 [place] [phone]. Airam Tripathi Protein [Mass/Vol] 6.8 g/dL Normal 6.4-8.2 [facility] Comment on above: Performed By: #### C MP ####[facility] Dvkefzazpk7055 [place] [phone]. Airam Tripathi Sodium [Moles/Vol] 126 mmol/L Critically low 136-145 [facility] Comment on above: Performed By: #### C MP ####[facility] Lrtkmfdcpq8182 [place] [address]Dr. Airam Tripathi Urea nitrogen [Mass/Vol] 35.0 mg/dL Critically high 7.0-18.0 [facility] Comment on above: Performed By: #### C MP ####[facility] Ogiaumhiwf91[address] [place], [place] [address]Dr. Airam Tripathi Urea nitrogen/Creatinine [Mass ratio] 22.3 mg/mg Normal [facility] Comment on above: Performed By: #### C MP ####[facility] Jhqpcmwlxq8[address] [place], [place] [address]Dr. Airam Tripathi OSMOLALITYon 06-02-2022 Osmolality [Osmolality] 276 mosm/kg Normal 275-295 [facility] Comment on above: Performed By: #### O SMO ####[facility] Zncwxmtdvt106[address] [place], [place] [address]Dr. Airam Tripathi CBC AUTO DIFFon 06-01-2022 BASO # 0.1 103/ul Normal 0.0-0.1 [facility] Comment on above: Performed By: #### C BC ####[facility] Kumagivnzd3[address] [place], [place] [address]Dr. Airam Tripathi Basophils/100 WBC (Bld) 0.7 % Normal 0.2-2.0 [facility] Comment on above: Performed By: #### C BC ####[facility] Dycdhjlaeg[address] [place], [place] [address]Dr. Airam Tripahti EO # 0.3 103/ul Normal 0.0-0.7 [facility] Comment on above: Performed By: #### C BC ####[facility] Ehithsdimu0415[address] [place], [place] [address]Dr. Airam Tripathi Eosinophils/100 WBC (Bld) 3.3 % Normal 0.9-7.0 [facility] Comment on above: Performed By: #### C BC ####[facility] Gphjleyflz9[address] [place], [place] [address]Dr. Airam Tripathi Erythrocyte distribution width (RBC) [Ratio] 13.2 % Normal 11.0-15.0 [facility] Comment on above: Performed By: #### C BC ####[facility] Jwdvnujwcx9754 [place] [address]Dr. Airam Tripathi Hematocrit (Bld) [Volume fraction] 32.0 % Critically low 36.0-48.0 [facility] Comment on above: Performed By: #### C BC ####[facility] Jueywljplf2376 [place] [address]Dr. Airam Tripathi Hemoglobin (Bld) [Mass/Vol] 10.3 g/dL Critically low 12.0-16.0 [facility] Comment on above: Performed By: #### C BC ####[facility] Brncgmtleq4730[address] [place], [place] [address]Dr. Airam Tripathi IG # 0.05 10e3/ul Critically high 0.00-0.03 [facility] Comment on above: Performed By: #### C BC ####[facility] Rwipwqqkcb4[address] [place], [place] [address]DrKianna Selenaneil Tripathi IG % 0.7 % Critically high 0.0-0.5 [facility] Comment on above: Performed By: #### C BC ####[facility] Utnrhngzdz66[address] [place], [place] [address]DrKianna Airam Deuce LYMPH # 1.7 103/ul Normal 1.2-3.8 [facility] Comment on above: Performed By: #### C BC ####[facility] Guzigdzlrd8260[address] [place], [place] [address]DrKianna Selenaneil Tripathi Lymphocytes/100 WBC (Bld) 22.6 % Normal 20.5-60.0 [facility] Comment on above: Performed By: #### C BC ####[facility] Vjrbgbcbhv43[address] [place], [place] [address]DrKianna Selenaneil Tripathi MANUAL DIFF REQ NO Normal [facility] Comment on above: Performed By: #### C BC ####[facility] Rlmqtnvpfz42[address] [place], [place] [address]DrKianna Airam Deuce MCH (RBC) [Entitic mass] 30.8 pg Normal 26.7-34.0 [facility] Comment on above: Performed By: #### C BC ####[facility] Zktcmstjhp6003 [place] [phone]. Airam Deuce MCHC (RBC) [Mass/Vol] 32.2 g/dL Normal 29.9-35.2 [facility] Comment on above: Performed By: #### C BC ####[facility] Dqfeqalrvk0850[address] [place], [place] [address]Dr. Airam Tripathi MCV (RBC) [Entitic vol] 95.8 fL Normal 81.0-99.0 [facility] Comment on above: Performed By: #### C BC ####[facility] Qjfsudzmuh7[address] [place], [place] [address]Dr. Airam Tripathi MONO # 0.6 103/ul Normal 0.3-0.8 [facility] Comment on above: Performed By: #### C BC ####[facility] Jpaqyvzbru68[address] [place], [place] [address]Dr. Airam Tripathi Monocytes/100 WBC (Bld) 8.6 % Normal 1.7-12.0 [facility] Comment on above: Performed By: #### C BC ####[facility] Hclzfapawy7[address] [place], [place] [address]Dr. Airam Tripathi NEUT # 4.8 103/ul Normal 1.4-6.5 [facility] Comment on above: Performed By: #### C BC ####[facility] Hmeduyzkzm5[address] [place], [place] [address]Dr. Airam Tripathi Neutrophils/100 WBC (Bld) 64.1 % Normal 43.0-75.0 [facility] Comment on above: Performed By: #### C BC ####[facility] Iedtrkrmsj57[address] [place], [place] [address]Dr. Airam Tripathi Platelet mean volume (Bld) [Entitic vol] 10.0 fL Normal 9.5-13.5 [facility] Comment on above: Performed By: #### C BC ####[facility] Qjlhtiyxfz19[address] [place], [place] [address]Dr. Airam Tripathi PLT 322 103/ul Normal 150-450 [facility] Comment on above: Performed By: #### C BC ####[facility] Orncqmfhgy9705 [place] [phone]. Selenaneil Deuce RBC 3.34 106/ul Critically low 4.20-5.40 [facility] Comment on above: Performed By: #### C BC ####[facility] Rrfwumzjtm0950 [place] [phone]. Airam Tripathi WBC 7.5 103/ul Normal 4.0-11.0 [facility] Comment on above: Performed By: #### C BC ####[facility] Bsoctkyzkm3778 [place] [address]Dr. Airam Tripathi PROF 14(COMP METB)on 022 Albumin [Mass/Vol] 3.5 g/dL Normal 3.4-5.0 [facility] Comment on above: Performed By: #### C MP ####[facility] Exisukuvys[address] [place], [place] [address]Dr. Airam Tripathi Albumin/Globulin [Mass ratio] 1.1 {ratio} Normal [facility] Comment on above: Performed By: #### C MP ####[facility] Izmtzejfok50[address] [place], [place] [address]Dr. Airam Tripathi ALP [Catalytic activity/Vol] 167 U/L Critically high 46-116 [facility] Comment on above: Performed By: #### C MP ####[facility] Aubhshbdys9044[address] [place], [place] [address]Dr. Airam Tripathi ALT [Catalytic activity/Vol] 24 U/L Normal 14-59 [facility] Comment on above: Performed By: #### C MP ####[facility] Ncnlgqvcgh6411 [place] [address]Dr. Airam Tripathi Anion gap [Moles/Vol] 14.1 mmol/L Normal [facility] Comment on above: Performed By: #### C MP ####[facility] Pjokbnvdkl4891 [place] [address]Dr. Airam Tripathi AST [Catalytic activity/Vol] 27 U/L Normal 15-37 [facility] Comment on above: Performed By: #### C MP ####[facility] Rbkhffuuxi5478 [place] [phone]. Airam Tripathi Bilirubin [Mass/Vol] 0.3 mg/dL Normal 0.2-1.0 [facility] Comment on above: Performed By: #### C MP ####[facility] Oyfxuvdkfa55[address] [place], [place] [address]Dr. Airam Tripathi Calcium [Mass/Vol] 8.0 mg/dL Critically low 8.5-10.1 Th e [facility] Comment on above: Performed By: #### C MP ####[facility] Qdzjymbgqb3[address] [place], [place] [address]Dr. Airam Tripathi Chloride [Moles/Vol] 96 mmol/L Critically low 98-107 [facility] Comment on above: Performed By: #### C MP ####[facility] Qvzlkeauox4[address] [place], [place] [address]Dr. Airam Tripathi CO2 [Moles/Vol] 24.6 mmol/L Normal 21.0-32.0 [facility] Comment on above: Performed By: #### C MP ####[facility] Mlyjonkejq13[address] [place], [place] [address]Dr. Airam Tripathi Creatinine [Mass/Vol] 1.79 mg/dL Critically high 0.55-1.02 [facility] Comment on above: Performed By: #### C MP ####[facility] Yzqikgesoy9[address] [place], [place] [address]Dr. Airam Tripathi EGFR-AF ISRAELI 35 mL/min/1.73m2 Critically low >=60 [facility] Comment on above: Performed By: #### C MP ####[facility] Wffhvighkg[address] [place], [place] [address]Dr. Airam Tripathi EGFR-NON AF ISRA[place]I 29 mL/min/1.73m2 Critically low >=60 [facility] Comment on above: Performed By: #### C MP ####[facility] Jddbchvbul357[address] [place], [place] [address]Dr. Airam Tripathi Globulin (S) [Mass/Vol] 3.3 g/dL Normal [facility] Comment on above: Performed By: #### C MP ####[facility] Yopyqkpfio7402 [place] [address]Dr. Airam Tripathi Glucose [Mass/Vol] 58 mg/dL Critically low 74-106 Th [facility] Comment on above: Performed By: #### C MP ####[facility] Asnqpwrggm2215 [place] [address]Dr. Airam Tripathi Potassium [Moles/Vol] 4.7 mmol/L Normal 3.5-5.1 [facility] Comment on above: Performed By: #### C MP ####[facility] Nycparhxoa0925 [place] [address]Dr. Airam Tripathi Protein [Mass/Vol] 6.8 g/dL Normal 6.4-8.2 [facility] Comment on above: Performed By: #### C MP ####[facility] Tpfpnodfzy[address] [place], [place] [address]Dr. Airam Tripathi Sodium [Moles/Vol] 130 mmol/L Critically low 136-145 Th [facility] Comment on above: Performed By: #### C MP ####[facility] Vjnsuncsbg475[address] [place], [place] [address]Dr. Airam Tripathi Urea nitrogen [Mass/Vol] 30.0 mg/dL Critically high 7.0-18.0 [facility] Comment on above: Performed By: #### C MP ####[facility] Buccmgjwqp445[address] [place], [place] [address]Dr. Airam Deuce Urea nitrogen/Creatinine [Mass ratio] 16.8 mg/mg Normal [facility] Comment on above: Performed By: #### C MP ####[facility] Hqpjltbzre187[address] [place], [place] [address]Dr. Airam Deuce OSMOLALITYon 05-28-2022 Osmolality [Osmolality] 275 mosm/kg Normal 275-295 [facility] Comment on above: Performed By: #### O SMO ####[facility] Rfceehmbrw06[address] [place], [place] [address]Dr. Airam Deuce CBC AUTO DIFFon 05-26-2022 BASO # 0.0 103/ul Normal 0.0-0.1 [facility] Comment on above: Performed By: #### C BC ####[facility] Dcbttrnnsc3192 [place] [phone]. Airam Tripathi Basophils/100 WBC (Bld) 0.4 % Normal 0.2-2.0 [facility] Comment on above: Performed By: #### C BC ####[facility] Atgnjouyvs1617[address] [place], [place] [address]Dr. Airam Tripathi EO # 0.3 103/ul Normal 0.0-0.7 [facility] Comment on above: Performed By: #### C BC ####[facility] Ycedvtgbej844[address] [place], [place] [address]Dr. Airam Tripathi Eosinophils/100 WBC (Bld) 3.2 % Normal 0.9-7.0 [facility] Comment on above: Performed By: #### C BC ####[facility] Huihowoobw10[address] [place], [place] [address]Dr. Airam Tripathi Erythrocyte distribution width (RBC) [Ratio] 13.0 % Normal 11.0-15.0 [facility] Comment on above: Performed By: #### C BC ####[facility] Bdqkmtgwwy96[address] [place], [place] [address]Dr. Airam Tripathi Hematocrit (Bld) [Volume fraction] 30.4 % Critically low 36.0-48.0 [facility] Comment on above: Performed By: #### C BC ####[facility] Zucmfdjzdv7[address] [place], [place] [address]Dr. Airam Tripathi Hemoglobin (Bld) [Mass/Vol] 9.6 g/dL Critically low 12.0-16.0 [facility] Comment on above: Performed By: #### C BC ####[facility] Vaxznbtfbj37[address] [place], [place] [address]Dr. Airam Deuce IG # 0.06 10e3/ul Critically high 0.00-0.03 [facility] Comment on above: Performed By: #### C BC ####[facility] Hdrgqavfwx[address] [place], [place] [address]Dr. Airam Tripathi IG % 0.7 % Critically high 0.0-0.5 [facility] Comment on above: Performed By: #### C BC ####[facility] Prbxydbwwt4972 [place] [address]Dr. Airam Tripathi LYMPH # 1.9 103/ul Normal 1.2-3.8 [facility] Comment on above: Performed By: #### C BC ####[facility] Hgheezfdhh3443 [place] [address]Dr. Airam Tripathi Lymphocytes/100 WBC (Bld) 20.6 % Normal 20.5-60.0 [facility] Comment on above: Performed By: #### C BC ####[facility] Vypnupyrqk[address] [place], [place] [address]DrKianna Tripathi MANUAL DIFF REQ NO Normal [facility] Comment on above: Performed By: #### C BC ####[facility] [address]jtwcbvvj[address] [place], [place] [address]Dr. Airam Tripathi MCH (RBC) [Entitic mass] 30.1 pg Normal 26.7-34.0 [facility] Comment on above: Performed By: #### C BC ####[facility] Rabuiylofx[address] [place], [place] [address]Dr. Airam Tripathi MCHC (RBC) [Mass/Vol] 31.6 g/dL Normal 29.9-35.2 [facility] Comment on above: Performed By: #### C BC ####[facility] Zmzhmwzzag[address] [place], [place] [address]Dr. Airam Tripathi MCV (RBC) [Entitic vol] 95.3 fL Normal 81.0-99.0 [facility] Comment on above: Performed By: #### C BC ####[facility] [address]jksujebvc[address] [place], [place] [address]DrKianna Tripathi MONO # 0.6 103/ul Normal 0.3-0.8 [facility] Comment on above: Performed By: #### C BC ####[facility] Xhczmlblht6517 [place] [phone]. Airam Tripathi Monocytes/100 WBC (Bld) 6.9 % Normal 1.7-12.0 [facility] Comment on above: Performed By: #### C BC ####[facility] Gmaurhaubb8465 [place] [phone]. Airam Tripathi NEUT # 6.1 103/ul Normal 1.4-6.5 [facility] Comment on above: Performed By: #### C BC ####[facility] Mqjfrdslkc0774 [place] [phone] Tripathi Neutrophils/100 WBC (Bld) 68.2 % Normal 43.0-75.0 [facility] Comment on above: Performed By: #### C BC ####[facility] Mvsjssojfe2193 [place] [address]Dr. Airam Tripathi Platelet mean volume (Bld) [Entitic vol] 9.7 fL Normal 9.5-13.5 [facility] Comment on above: Performed By: #### C BC ####[facility] Kdazwfjemv4548 [place] [address]Dr. Airam Tripathi PLT 317 103/ul Normal 150-450 [facility] Comment on above: Performed By: #### C BC ####[facility] Kihqcbejdb3370 [place] [phone]. Airam Tripathi RBC 3.19 106/ul Critically low 4.20-5.40 [facility] Comment on above: Performed By: #### C BC ####[facility] Lnmnkvxbqz8895 [place] [phone]. Airam Tripathi WBC 9.0 103/ul Normal 4.0-11.0 [facility] Comment on above: Performed By: #### C BC ####[facility] Ejvqtipfbm4744 [place] [phone] Tripathi PROF 14(COMP METB)on 022 Albumin [Mass/Vol] 3.4 g/dL Normal 3.4-5.0 [facility] Comment on above: Performed By: #### C MP ####[facility] Pdylekllza9793 [place] [phone] Tripathi Albumin/Globulin [Mass ratio] 1.0 {ratio} Normal [facility] Comment on above: Performed By: #### C MP ####[facility] Lphtsskjll8419 [place] [address]Dr. Airam Tripathi ALP [Catalytic activity/Vol] 153 U/L Critically high 46-116 [facility] Comment on above: Performed By: #### C MP ####[facility] Xelyvscxmi0571 [place] [address]Dr. Airam Deuce ALT [Catalytic activity/Vol] 21 U/L Normal 14-59 [facility] Comment on above: Performed By: #### C MP ####[facility] Qgditfdnxl7751 [place] [address]Dr. Airam Tripathi Anion gap [Moles/Vol] 13.6 mmol/L Normal [facility] Comment on above: Performed By: #### C MP ####[facility] [address]vqtcykl[address] [place], [place] [address]Dr. Airam Tripathi AST [Catalytic activity/Vol] 23 U/L Normal 15-37 [facility] Comment on above: Performed By: #### C MP ####[facility] Arxzdwfkwl[address] [place], [place] [address]Dr. Airam Tripathi Bilirubin [Mass/Vol] 0.2 mg/dL Normal 0.2-1.0 [facility] Comment on above: Performed By: #### C MP ####[facility] [address] [place] [address]Dr. Airam Tripathi Calcium [Mass/Vol] 8.4 mg/dL Critically low 8.5-10.1 [facility] Comment on above: Performed By: #### C MP ####[facility] Shosipfnhj28[address] [place] [address]Dr. Airam Tripathi Chloride [Moles/Vol] 97 mmol/L Critically low 98-107 [facility] Comment on above: Performed By: #### C MP ####[facility] Ueinhivrzi99[address] [place] [address]Dr. Airam Tripathi CO2 [Moles/Vol] 25.2 mmol/L Normal 21.0-32.0 [facility] Comment on above: Performed By: #### C MP ####[facility] Lnpjtccfkw[address] [place] [phone]. Airam Tripathi Creatinine [Mass/Vol] 1.58 mg/dL Critically high 0.55-1.02 [facility] Comment on above: Performed By: #### C MP ####[facility] Buduyaljfk23[address] [place] [phone]. Airam Tripathi EGFR-AF ISRAELI 40 mL/min/1.73m2 Critically low >=60 [facility] Comment on above: Performed By: #### C MP ####[facility] Hsxzqjrkqi7[address] [place] [address]Dr. Airam Deuce EGFR-NON AF ISRAELI 33 mL/min/1.73m2 Critically low >=60 [facility] Comment on above: Performed By: #### C MP ####[facility] Anbagmkyld[address] [place], [place] [address]Dr. Airam Deuce Globulin (S) [Mass/Vol] 3.4 g/dL Normal [facility] Comment on above: Performed By: #### C MP ####[facility] Aktunokopz50[address] [place] [address]Dr. Airam Deuce Glucose [Mass/Vol] 74 mg/dL Normal 74-106 [facility] Comment on above: Performed By: #### C MP ####[facility] Hgghpelojq9572 [place] [address]Dr. Airam Deuce Potassium [Moles/Vol] 4.8 mmol/L Normal 3.5-5.1 [facility] Comment on above: Performed By: #### C MP ####[facility] Bmwkshdoub9398 [place] [address]Dr. Airam Tripathi Protein [Mass/Vol] 6.8 g/dL Normal 6.4-8.2 [facility] Comment on above: Performed By: #### C MP ####[facility] Ofsihchaso9254 [place] [address]Dr. Selenaneil Tripathi Sodium [Moles/Vol] 131 mmol/L Critically low 136-145 [facility] Comment on above: Performed By: #### C MP ####[facility] Qydefaakbo9499 [place] [address]Dr. Airam Tripathi Urea nitrogen [Mass/Vol] 31.0 mg/dL Critically high 7.0-18.0 [facility] Comment on above: Performed By: #### C MP ####[facility] Oiktnotydj36[address] [place], [place] [address]Dr. Airam Tripathi Urea nitrogen/Creatinine [Mass ratio] 19.6 mg/mg Normal [facility] Comment on above: Performed By: #### C MP ####[facility] Cxduzjufwq8[address] [place], [place] [address]Dr. Airam Tripathi OSMOLALITYon 05-19-2022 Osmolality [Osmolality] 281 mosm/kg Normal 275-295 [facility] Comment on above: Performed By: #### O SMO ####[facility] Qgeweqxcnu8601[address] [place], [place] [address]Dr. Airam Tripathi CBC AUTO DIFFon 05-17-2022 BASO # 0.1 103/ul Normal 0.0-0.1 [facility] Comment on above: Performed By: #### C BC ####[facility] Ofbyvgtzfp398[address] [place], [place] [address]Dr. Airam Tripathi Basophils/100 WBC (Bld) 0.6 % Normal 0.2-2.0 [facility] Comment on above: Performed By: #### C BC ####[facility] Fyolzzxjlt0[address] [place], [place] [address]Dr. Airam Tripathi EO # 0.2 103/ul Normal 0.0-0.7 [facility] Comment on above: Performed By: #### C BC ####[facility] Jftomlfuff9734[address] [place], [place] [address]Dr. Airam Tripathi Eosinophils/100 WBC (Bld) 1.9 % Normal 0.9-7.0 [facility] Comment on above: Performed By: #### C BC ####[facility] Xtfqlkzijw70264[address] [place], [place] [address]Dr. Airam Tripathi Erythrocyte distribution width (RBC) [Ratio] 12.9 % Normal 11.0-15.0 [facility] Comment on above: Performed By: #### C BC ####[facility] Zqsjqzgqbo8382 [place] [address]Dr. Airam Tripathi Hematocrit (Bld) [Volume fraction] 32.1 % Critically low 36.0-48.0 [facility] Comment on above: Performed By: #### C BC ####[facility] Shiintrlge[address] [place], [place] [address]DrKianna Tripathi Hemoglobin (Bld) [Mass/Vol] 9.9 g/dL Critically low 12.0-16.0 [facility] Comment on above: Performed By: #### C BC ####[facility] Ygshmkotgb28[address] [place], [place] [address]DrKianna Tripathi IG # 0.05 10e3/ul Critically high 0.00-0.03 [facility] Comment on above: Performed By: #### C BC ####[facility] Mjonftynwv60[address] [place], [place] [address]DrKianna Tripathi IG % 0.6 % Critically high 0.0-0.5 [facility] Comment on above: Performed By: #### C BC ####[facility] Oajhgyvlei26[address] [place], [place] [address]DrKianna Tripathi LYMPH # 1.3 103/ul Normal 1.2-3.8 [facility] Comment on above: Performed By: #### C BC ####[facility] Fuhrqoduny8864[address] [place], [place] [address]DrKianna Tripathi Lymphocytes/100 WBC (Bld) 15.2 % Critically low 20.5-60.0 [facility] Comment on above: Performed By: #### C BC ####[facility] Dhgmsnakqv13[address] [place], [place] [address]DrKianna Tripathi MANUAL DIFF REQ NO Normal [facility] Comment on above: Performed By: #### C BC ####[facility] Kfwhpmzquz[address] [place], [place] [address]DrKianna Tripathi MCH (RBC) [Entitic mass] 30.0 pg Normal 26.7-34.0 [facility] Comment on above: Performed By: #### C BC ####[facility] Ankxaqhxiu50[address] [place] [address]Dr. Airam Tripathi MCHC (RBC) [Mass/Vol] 30.8 g/dL Normal 29.9-35.2 [facility] Comment on above: Performed By: #### C BC ####[facility] Yotpoofuup5277 [place] [address]Dr. Airam Tripathi MCV (RBC) [Entitic vol] 97.3 fL Normal 81.0-99.0 [facility] Comment on above: Performed By: #### C BC ####[facility] Ywplurlfra[address] [place], [place] [address]Dr. Airam Tripathi MONO # 0.5 103/ul Normal 0.3-0.8 [facility] Comment on above: Performed By: #### C BC ####[facility] Hyddzfbbsi67[address] [place], [place] [address]Dr. Airam Tripathi Monocytes/100 WBC (Bld) 5.4 % Normal 1.7-12.0 [facility] Comment on above: Performed By: #### C BC ####[facility] Iwxytcjggg40[address] [place], [place] [address]Dr. Airam Tripathi NEUT # 6.5 103/ul Normal 1.4-6.5 [facility] Comment on above: Performed By: #### C BC ####[facility] Rcdtydfyqp8[address] [place], [place] [address]Dr. Airam Tripathi Neutrophils/100 WBC (Bld) 76.3 % Critically high 43.0-75.0 [facility] Comment on above: Performed By: #### C BC ####[facility] Lqnmreeyjp9[address] [place], [place] [address]Dr. Airam Tripathi Platelet mean volume (Bld) [Entitic vol] 10.1 fL Normal 9.5-13.5 [facility] Comment on above: Performed By: #### C BC ####[facility] Bprcoahvxq[address] [place], [place] [address]Dr. Airam Tripathi PLT 284 103/ul Normal 150-450 [facility] Comment on above: Performed By: #### C BC ####[facility] Qzxywgprhm3923 [place] [address]Dr. Airam Deuce RBC 3.30 106/ul Critically low 4.20-5.40 [facility] Comment on above: Performed By: #### C BC ####[facility] Oazgnzbufv9988 [place] [phone]. Airam Deuce WBC 8.5 103/ul Normal 4.0-11.0 [facility] Comment on above: Performed By: #### C BC ####[facility] Yvqrfichhk8819 [place] [address]DrKianna Tripathi PROF 14(COMP METB)on 022 Albumin [Mass/Vol] 3.1 g/dL Critically low 3.4-5.0 [facility] Comment on above: Performed By: #### C MP ####[facility] Amowsztadw8707 [place] [address]DrKianna Tripathi Albumin/Globulin [Mass ratio] 0.9 {ratio} Normal [facility] Comment on above: Performed By: #### C MP ####[facility] Tvgomyzqfr5042 [place] [address]DrKianna Selenaneil Tripathi ALP [Catalytic activity/Vol] 162 U/L Critically high 46-116 [facility] Comment on above: Performed By: #### C MP ####[facility] Nllizcejwr6580 [place] [address]DrKianna Tripathi ALT [Catalytic activity/Vol] 22 U/L Normal 14-59 [facility] Comment on above: Performed By: #### C MP ####[facility] Kohlcnmgll9625 [place] [phone] Tripathi Anion gap [Moles/Vol] 9.4 mmol/L Normal [facility] Comment on above: Performed By: #### C MP ####[facility] Pslockqirr2620 [place] [phone]. Airam Tripathi AST [Catalytic activity/Vol] 26 U/L Normal 15-37 [facility] Comment on above: Performed By: #### C MP ####[facility] Wvvkamxoao7664 [place] [phone]. Airam Tripathi Bilirubin [Mass/Vol] 0.2 mg/dL Normal 0.2-1.0 [facility] Comment on above: Performed By: #### C MP ####[facility] Rrhqzinmzo7003 [place] [phone]. Airam Tripathi Calcium [Mass/Vol] 8.2 mg/dL Critically low 8.5-10.1 Th e [facility] Comment on above: Performed By: #### C MP ####[facility] Dnfhgkmmgs[address] [place], [place] [address]Dr. Airam Deuce Chloride [Moles/Vol] 103 mmol/L Normal 98-107 [facility] Comment on above: Performed By: #### C MP ####[facility] Cailgsksug[address] [place], [place] [address]Dr. Airam Deuce CO2 [Moles/Vol] 24.8 mmol/L Normal 21.0-32.0 [facility] Comment on above: Performed By: #### C MP ####[facility] Epjjsquhyw774[address] [place], [place] [address]Dr. Airam Deuce Creatinine [Mass/Vol] 1.19 mg/dL Critically high 0.55-1.02 [facility] Comment on above: Performed By: #### C MP ####[facility] Gzyugyzijk[address] [place], [place] [address]Dr. Airam Deuce EGFR-AF ISRAELI 56 mL/min/1.73m2 Critically low >=60 [facility] Comment on above: Performed By: #### C MP ####[facility] R[address]qj[address]bl[address] [place], [place] [address]Dr. Airam Deuce EGFR-NON AF ISRAELI 46 mL/min/1.73m2 Critically low >=60 [facility] Comment on above: Performed By: #### C MP ####[facility] Qqmofypgtk[address] [place], [place] [address]Dr. Airam Tripathi Globulin (S) [Mass/Vol] 3.6 g/dL Normal [facility] Comment on above: Performed By: #### C MP ####[facility] Fiiwkuswcq2118 [place] [address]Dr. Airam Tripathi Glucose [Mass/Vol] 75 mg/dL Normal 74-106 [facility] Comment on above: Performed By: #### C MP ####[facility] Jwgsijbzyw1735 [place] [phone]. Airam Tripathi Potassium [Moles/Vol] 5.2 mmol/L Critically high 3.5-5.1 [facility] Comment on above: Performed By: #### C MP ####[facility] Ltrxqvhlni4934 [place] [address]Dr. Airam Tripathi Protein [Mass/Vol] 6.7 g/dL Normal 6.4-8.2 [facility] Comment on above: Performed By: #### C MP ####[facility] Nnwlnihfgd1130[address] [place], [place] [address]Dr. Airam Deuce Sodium [Moles/Vol] 132 mmol/L Critically low 136-145 Th [facility] Comment on above: Performed By: #### C MP ####[facility] Dhkgkidenl4213[address] [place], [place] [address]Dr. Airam Deuce Urea nitrogen [Mass/Vol] 28.0 mg/dL Critically high 7.0-18.0 [facility] Comment on above: Performed By: #### C MP ####[facility] Qotfywtrbt20[address] [place], [place] [address]Dr. Airam Deuce Urea nitrogen/Creatinine [Mass ratio] 23.5 mg/mg Normal [facility] Comment on above: Performed By: #### C MP ####[facility] Vncuseoeun0632 [place] [phone]. Airam Deuce OSMOLALITYon 05-16-2022 Osmolality [Osmolality] 281 mosm/kg Normal 275-295 [facility] Comment on above: Performed By: #### O SMO ####[facility] Dnxwbrkqbv1085[address] [place], [place] [address]Dr. Airam Deuce CBC AUTO DIFFon 05-13-2022 BASO # 0.1 103/ul Normal 0.0-0.1 [facility] Comment on above: Performed By: #### C BC ####[facility] Cngbcqysbl1068 [place] [address]Dr. Airam Tripathi Basophils/100 WBC (Bld) 0.5 % Normal 0.2-2.0 [facility] Comment on above: Performed By: #### C BC ####[facility] Sprcyhuseg038[address] [place], [place] [address]DrKianna Tripathi EO # 0.2 103/ul Normal 0.0-0.7 [facility] Comment on above: Performed By: #### C BC ####[facility] Aaimcvpwur6[address] [place], [place] [address]Dr. Airam Tripathi Eosinophils/100 WBC (Bld) 2.1 % Normal 0.9-7.0 [facility] Comment on above: Performed By: #### C BC ####[facility] Tswrgtgadl7250[address] [place], [place] [address]Dr. Airam Tripathi Erythrocyte distribution width (RBC) [Ratio] 12.9 % Normal 11.0-15.0 [facility] Comment on above: Performed By: #### C BC ####[facility] Mxudiquezv4189[address] [place], [place] [address]Dr. Airam Tripathi Hematocrit (Bld) [Volume fraction] 31.9 % Critically low 36.0-48.0 [facility] Comment on above: Performed By: #### C BC ####[facility] Mojsdqhqsc1285[address] [place], [place] [address]Dr. Airam Tripathi Hemoglobin (Bld) [Mass/Vol] 9.7 g/dL Critically low 12.0-16.0 [facility] Comment on above: Performed By: #### C BC ####[facility] Jqptiugyvw[address]15[address] [place], [place] [address]DrKianna Tripathi IG # 0.06 10e3/ul Critically high 0.00-0.03 [facility] Comment on above: Performed By: #### C BC ####[facility] Lldlpnfqch2110[address] [place], [place] [address]Dr. Airam Tripathi IG % 0.7 % Critically high 0.0-0.5 [facility] Comment on above: Performed By: #### C BC ####[facility] Wucihrinve4739 [place] [address]DrKianna Tripathi LYMPH # 1.9 103/ul Normal 1.2-3.8 [facility] Comment on above: Performed By: #### C BC ####[facility] Eknuligioz4995 [place] [address]DrKianna Tripathi Lymphocytes/100 WBC (Bld) 21.1 % Normal 20.5-60.0 [facility] Comment on above: Performed By: #### C BC ####[facility] Bnzvzmpjoy[address] [place], [place] [address]DrKianna Tripathi MANUAL DIFF REQ NO Normal [facility] Comment on above: Performed By: #### C BC ####[facility] Dyppitwsih0712 [place] [address]DrKianna Tripathi MCH (RBC) [Entitic mass] 29.7 pg Normal 26.7-34.0 [facility] Comment on above: Performed By: #### C BC ####[facility] Wxxekrzbmc[address] [place], [place] [address]DrKianna Tripathi MCHC (RBC) [Mass/Vol] 30.4 g/dL Normal 29.9-35.2 [facility] Comment on above: Performed By: #### C BC ####[facility] Hclmfcelsn23[address] [place], [place] [address]DrKianna Tripathi MCV (RBC) [Entitic vol] 97.6 fL Normal 81.0-99.0 [facility] Comment on above: Performed By: #### C BC ####[facility] Prttcrotpl[address] [place], [place] [address]DrKianna Tripathi MONO # 0.6 103/ul Normal 0.3-0.8 [facility] Comment on above: Performed By: #### C BC ####[facility] Omcjbxpvuk8[address] [place], [place] [address]DrKianna Tripathi Monocytes/100 WBC (Bld) 6.8 % Normal 1.7-12.0 [facility] Comment on above: Performed By: #### C BC ####[facility] Pnchzryssj5699 [place] [address]Dr. Airam Tripathi NEUT # 6.3 103/ul Normal 1.4-6.5 [facility] Comment on above: Performed By: #### C BC ####[facility] Cpqjjuqprk6977 [place] [address]DrKianna Airam Deuce Neutrophils/100 WBC (Bld) 68.8 % Normal 43.0-75.0 [facility] Comment on above: Performed By: #### C BC ####[facility] Jmwrsnteri1616 [place] [address]DrKianna Airam Deuce Platelet mean volume (Bld) [Entitic vol] 9.6 fL Normal 9.5-13.5 [facility] Comment on above: Performed By: #### C BC ####[facility] Tdioimriht[address] [place], [place] [address]Dr. Airam Deuce PLT 295 103/ul Normal 150-450 [facility] Comment on above: Performed By: #### C BC ####[facility] Pnwsbgpqrp8827[address] [place], [place] [address]Dr. Airam Deuce RBC 3.27 106/ul Critically low 4.20-5.40 [facility] Comment on above: Performed By: #### C BC ####[facility] Qcwsselidx[address] [place], [place] [address]DrKianna Trpiathi WBC 9.1 103/ul Normal 4.0-11.0 [facility] Comment on above: Performed By: #### C BC ####[facility] Mbsgkdqwfn3906 [place] [address]DrKianna Tripathi PROF 14(COMP METB)on 05-13- 022 Albumin [Mass/Vol] 3.3 g/dL Critically low 3.4-5.0 [facility] Comment on above: Performed By: #### C MP ####[facility] Kjgznxduhs6760[address] [place], [place] [address]DrKianna Tripathi Albumin/Globulin [Mass ratio] 1.0 {ratio} Normal [facility] Comment on above: Performed By: #### C MP ####[facility] Tzgavabzjl6473 [place] [address]Dr. Airam Deuce ALP [Catalytic activity/Vol] 152 U/L Critically high 46-116 [facility] Comment on above: Performed By: #### C MP ####[facility] Ptidklrqcg7410[address] [place], [place] [address]Dr. Airam Deuce ALT [Catalytic activity/Vol] 23 U/L Normal 14-59 [facility] Comment on above: Performed By: #### C MP ####[facility] Qpyvzonmbb7167[address] [place], [place] [address]Dr. Airam Tripathi Anion gap [Moles/Vol] 12.0 mmol/L Normal Th [facility] Comment on above: Performed By: #### C MP ####[facility] Dfbcumtccm9[address] [place], [place] [address]Dr. Selenaneil Tripathi AST [Catalytic activity/Vol] 25 U/L Normal 15-37 [facility] Comment on above: Performed By: #### C MP ####[facility] Zvldedpqtd335[address] [place], [place] [address]Dr. Airam Tripathi Bilirubin [Mass/Vol] 0.2 mg/dL Normal 0.2-1.0 [facility] Comment on above: Performed By: #### C MP ####[facility] Zsysvhbzvt847[address] [place], [place] [address]Dr. Airam Tripathi Calcium [Mass/Vol] 8.2 mg/dL Critically low 8.5-10.1 [facility] Comment on above: Performed By: #### C MP ####[facility] Tfhimfylrt54[address] [place], [place] [address]Dr. Airam Tripathi Chloride [Moles/Vol] 100 mmol/L Normal 98-107 [facility] Comment on above: Performed By: #### C MP ####[facility] Gizvqyoxtg368[address] [place], [place] [address]Dr. Airam Tripathi CO2 [Moles/Vol] 24.8 mmol/L Normal 21.0-32.0 [facility] Comment on above: Performed By: #### C MP ####[facility] Cvcypmmkji7237 [place] [address]Dr. Airam Deuce Creatinine [Mass/Vol] 1.46 mg/dL Critically high 0.55-1.02 [facility] Comment on above: Performed By: #### C MP ####[facility] Xfwihytjvy8122 [place] [address]Dr. Airam Tripathi EGFR-AF ISRAELI 44 mL/min/1.73m2 Critically low >=60 [facility] Comment on above: Performed By: #### C MP ####[facility] Nytqyvpvac28[address] [place], [place] [address]Dr. Airam Tripathi EGFR-NON AF ISRA[place]I 37 mL/min/1.73m2 Critically low >=60 [facility] Comment on above: Performed By: #### C MP ####[facility] Snnkdkiftg770[address] [place], [place] [address]Dr. Airam Tripathi Globulin (S) [Mass/Vol] 3.3 g/dL Normal [facility] Comment on above: Performed By: #### C MP ####[facility] Dunvkzrxte4[address] [place], [place] [address]Dr. Airam Tripathi Glucose [Mass/Vol] 86 mg/dL Normal 74-106 [facility] Comment on above: Performed By: #### C MP ####[facility] Lkztkzpnas078[address] [place], [place] [address]Dr. Airam Tripathi Potassium [Moles/Vol] 4.8 mmol/L Normal 3.5-5.1 [facility] Comment on above: Performed By: #### C MP ####[facility] Mkougxlcgn4932[address] [place], [place] [address]Dr. Airam Tripathi Protein [Mass/Vol] 6.6 g/dL Normal 6.4-8.2 [facility] Comment on above: Performed By: #### C MP ####[facility] Zdhjhnlvke15[address] [place], [place] [address]Dr. Airam Tripathi Sodium [Moles/Vol] 132 mmol/L Critically low 136-145 Th e [facility] Comment on above: Performed By: #### C MP ####[facility] Cgtmvuqiss2261 [place] [address]Dr. Airam Tripathi Urea nitrogen [Mass/Vol] 34.0 mg/dL Critically high 7.0-18.0 [facility] Comment on above: Performed By: #### C MP ####[facility] Figiwfwxyt2194[address] [place], [place] [address]Dr. Airam Tripathi Urea nitrogen/Creatinine [Mass ratio] 23.3 mg/mg Normal [facility] Comment on above: Performed By: #### C MP ####[facility] [address]kcuoqmci74[address] [place], [place] [address]Dr. Airam Tripathi OSMOLALITYon 05-06-2022 Osmolality [Osmolality] 284 mosm/kg Normal 275-295 [facility] Comment on above: Performed By: #### O SMO ####[facility] Aervayviag50[address] [place], [place] [address]Dr. Airam Tripathi XR LSPINE MIN 4 VIEWSon XR LSPINE MIN 4 VIEWS Normal [facility] CBC AUTO DIFFon 05-03-2022 BASO # 0.1 103/ul Normal 0.0-0.1 [facility] Comment on above: Performed By: #### C BC ####[facility] Qqmixlpomd[address] [place], [place] [address]Dr. Airam Duece Basophils/100 WBC (Bld) 0.6 % Normal 0.2-2.0 [facility] Comment on above: Performed By: #### C BC ####[facility] Kcsjeqofdw46[address] [place], [place] [address]Dr. Airam Tripathi EO # 0.3 103/ul Normal 0.0-0.7 [facility] Comment on above: Performed By: #### C BC ####[facility] Mlsiemhajo97[address] [place], [place] [address]Dr. Airam Tripathi Eosinophils/100 WBC (Bld) 4.2 % Normal 0.9-7.0 [facility] Comment on above: Performed By: #### C BC ####[facility] Fzcdcdmroo[address] [place] [address]Dr. Airam Tripathi Erythrocyte distribution width (RBC) [Ratio] 13.4 % Normal 11.0-15.0 [facility] Comment on above: Performed By: #### C BC ####[facility] Hkydlpzrot9821 [place] [address]Dr. Airam Tripathi Hematocrit (Bld) [Volume fraction] 30.7 % Critically low 36.0-48.0 [facility] Comment on above: Performed By: #### C BC ####[facility] Ljcdayfbrd67[address] [place], [place] [address]Dr. Airam Tripathi Hemoglobin (Bld) [Mass/Vol] 9.6 g/dL Critically low 12.0-16.0 [facility] Comment on above: Performed By: #### C BC ####[facility] Orvboctvzm286[address] [place], [place] [address]Dr. Airam Tripathi IG # 0.05 10e3/ul Critically high 0.00-0.03 [facility] Comment on above: Performed By: #### C BC ####[facility] Xgkpgxtsrg8[address] [place], [place] [address]Dr. Airam Tripathi IG % 0.6 % Critically high 0.0-0.5 [facility] Comment on above: Performed By: #### C BC ####[facility] Qzjoushggg38[address] [place], [place] [address]Dr. Airam Tripathi LYMPH # 1.9 103/ul Normal 1.2-3.8 [facility] Comment on above: Performed By: #### C BC ####[facility] Qwsrrnwuze789[address] [place], [place] [address]Dr. Airam Tripathi Lymphocytes/100 WBC (Bld) 23.5 % Normal 20.5-60.0 [facility] Comment on above: Performed By: #### C BC ####[facility] Sttszmyemq932[address] [place], [place] [address]Dr. Airam Tripathi MANUAL DIFF REQ NO Normal [facility] Comment on above: Performed By: #### C BC ####[facility] Icaodtnjrj4462 [place] [phone]. Airam Tripathi MCH (RBC) [Entitic mass] 30.8 pg Normal 26.7-34.0 [facility] Comment on above: Performed By: #### C BC ####[facility] Xprcuqhhlb1400 [place] [phone]. Airam Tripathi MCHC (RBC) [Mass/Vol] 31.3 g/dL Normal 29.9-35.2 [facility] Comment on above: Performed By: #### C BC ####[facility] Innudwugfs35[address] [place] [phone]. Airam Deuce MCV (RBC) [Entitic vol] 98.4 fL Normal 81.0-99.0 [facility] Comment on above: Performed By: #### C BC ####[facility] Ataghditxy26[address] [place], [place] [address]Dr. iAram Tripathi MONO # 0.6 103/ul Normal 0.3-0.8 [facility] Comment on above: Performed By: #### C BC ####[facility] Wxkstujnpn5755 [place] [address]Dr. Airam Tripathi Monocytes/100 WBC (Bld) 7.4 % Normal 1.7-12.0 [facility] Comment on above: Performed By: #### C BC ####[facility] Zfiznpvrmb69[address] [place], [place] [address]Dr. Selenaneil Tripathi NEUT # 5.0 103/ul Normal 1.4-6.5 [facility] Comment on above: Performed By: #### C BC ####[facility] Vxoddrrzos[address] [place], [place] [address]Dr. Airam Tripathi Neutrophils/100 WBC (Bld) 63.7 % Normal 43.0-75.0 [facility] Comment on above: Performed By: #### C BC ####[facility] Rnouvxglax01[address] [place], [place] [address]Dr. Airam Tripathi Platelet mean volume (Bld) [Entitic vol] 9.5 fL Normal 9.5-13.5 [facility] Comment on above: Performed By: #### C BC ####[facility] Usmhbldkou8[address] [place] [phone]. Airam Tripathi PLT 280 103/ul Normal 150-450 [facility] Comment on above: Performed By: #### C BC ####[facility] Iswvidshmu7947 [place] [phone]. Airam Tripathi RBC 3.12 106/ul Critically low 4.20-5.40 [facility] Comment on above: Performed By: #### C BC ####[facility] Vexdadetrb8780 [place] [phone]. Airam Tripathi WBC 7.9 103/ul Normal 4.0-11.0 [facility] Comment on above: Performed By: #### C BC ####[facility] Xkremaggcp1744 [place] [address]Dr. Airam Tripathi PROF 14(COMP METB)on 022 Albumin [Mass/Vol] 3.1 g/dL Critically low 3.4-5.0 [facility] Comment on above: Performed By: #### C MP ####[facility] Nohftibhug1893 [place] [address]Dr. Airam Deuce Albumin/Globulin [Mass ratio] 0.9 {ratio} Normal [facility] Comment on above: Performed By: #### C MP ####[facility] Renqeeelli9320 [place] [address]Dr. Airam Tripathi ALP [Catalytic activity/Vol] 140 U/L Critically high 46-116 [facility] Comment on above: Performed By: #### C MP ####[facility] Gfltsrsdgn0806 [place] [phone]. Airam Tripathi ALT [Catalytic activity/Vol] 24 U/L Normal 14-59 [facility] Comment on above: Performed By: #### C MP ####[facility] Ytkkcpvazs2776 [place] [phone]. Airam Tripathi Anion gap [Moles/Vol] 11.2 mmol/L Normal [facility] Comment on above: Performed By: #### C MP ####[facility] Mtajnplvhh3414 [place] [phone]. Airam Tripathi AST [Catalytic activity/Vol] 26 U/L Normal 15-37 [facility] Comment on above: Performed By: #### C MP ####[facility] Spbpkmqakk4803 [place] [phone]. Airam Tripathi Bilirubin [Mass/Vol] 0.2 mg/dL Normal 0.2-1.0 [facility] Comment on above: Performed By: #### C MP ####[facility] Rezxxtrgzo9230 [place] [phone]. Airam Tripathi Calcium [Mass/Vol] 8.3 mg/dL Critically low 8.5-10.1 [facility] Comment on above: Performed By: #### C MP ####[facility] Qoisszqlvo[address] [place], [place] [address]Dr. Airam Tripathi Chloride [Moles/Vol] 101 mmol/L Normal 98-107 [facility] Comment on above: Performed By: #### C MP ####[facility] Kqxpxtopry8226 [place] [phone]. Airam Tripathi CO2 [Moles/Vol] 25.5 mmol/L Normal 21.0-32.0 [facility] Comment on above: Performed By: #### C MP ####[facility] Vuwybfbmxh9789 [place] [phone]. Airam Tripathi Creatinine [Mass/Vol] 1.43 mg/dL Critically high 0.55-1.02 [facility] Comment on above: Performed By: #### C MP ####[facility] Oefewwunis14[address] [place] [phone]. Airam Tripathi EGFR-AF ISRAELI 45 mL/min/1.73m2 Critically low >=60 [facility] Comment on above: Performed By: #### C MP ####[facility] Xdwxdfbghc[address] [place], [place] [address]Dr. Airam Tripathi EGFR-NON AF ISRAELI 37 mL/min/1.73m2 Critically low >=60 [facility] Comment on above: Performed By: #### C MP ####[facility] Pdamcrndzg5681 [place] [phone]. Airam Tripathi Globulin (S) [Mass/Vol] 3.3 g/dL Normal [facility] Comment on above: Performed By: #### C MP ####[facility] Vlipyncbtm2478 [place] [phone]. Airam Tripathi Glucose [Mass/Vol] 74 mg/dL Normal 74-106 [facility] Comment on above: Performed By: #### C MP ####[facility] Mvlwcdrfsv1799 [place] [address]Dr. Airam Tripathi Potassium [Moles/Vol] 4.7 mmol/L Normal 3.5-5.1 [facility] Comment on above: Performed By: #### C MP ####[facility] Urjiypmbvq052[address] [place], [place] [address]Dr. Airam Tripathi Protein [Mass/Vol] 6.4 g/dL Normal 6.4-8.2 [facility] Comment on above: Performed By: #### C MP ####[facility] Sfrpbstqwd3046 [place] [address]Dr. Airam Tripathi Sodium [Moles/Vol] 133 mmol/L Critically low 136-145 [facility] Comment on above: Performed By: #### C MP ####[facility] Cvwuicocdv7457 [place] [address]Dr. Airam Tripathi Urea nitrogen [Mass/Vol] 38.0 mg/dL Critically high 7.0-18.0 [facility] Comment on above: Performed By: #### C MP ####[facility] Ybsygwinvn0495 [place] [address]Dr. Airam Tripathi Urea nitrogen/Creatinine [Mass ratio] 26.6 mg/mg Normal [facility] Comment on above: Performed By: #### C MP ####[facility] Ipscvlvzbh1301 [place] [address]Dr. Airam Tripathi OSMOLALITYon 04-29-2022 Osmolality [Osmolality] 292 mosm/kg Normal 275-295 [facility] Comment on above: Performed By: #### O SMO ####[facility] Gvnzuwztzv8392 [place] [phone]. Airam Deuce CBC AUTO DIFFon 04-28-2022 BASO # 0.0 103/ul Normal 0.0-0.1 [facility] Comment on above: Performed By: #### C BC ####[facility] Txpxxtrglz6304 [place] [phone]. Selenaneil Tripathi Basophils/100 WBC (Bld) 0.5 % Normal 0.2-2.0 [facility] Comment on above: Performed By: #### C BC ####[facility] Svwkiqhgjf026[address] [place], [place] [address]Dr. Selenaneil Tripathi EO # 0.2 103/ul Normal 0.0-0.7 [facility] Comment on above: Performed By: #### C BC ####[facility] Xzmkzeiekr330[address] [place], [place] [address]Dr. Airam Tripathi Eosinophils/100 WBC (Bld) 3.4 % Normal 0.9-7.0 [facility] Comment on above: Performed By: #### C BC ####[facility] Hfukrswarg6812[address] [place], [place] [address]Dr. Airam Tripathi Erythrocyte distribution width (RBC) [Ratio] 13.4 % Normal 11.0-15.0 [facility] Comment on above: Performed By: #### C BC ####[facility] Efpjtcnlmj396[address] [place], [place] [address]Dr. Airam Tripathi Hematocrit (Bld) [Volume fraction] 31.6 % Critically low 36.0-48.0 [facility] Comment on above: Performed By: #### C BC ####[facility] Ugowcyuaks[address] [place], [place] [address]Dr. Selenaneil Tripathi Hemoglobin (Bld) [Mass/Vol] 9.8 g/dL Critically low 12.0-16.0 [facility] Comment on above: Performed By: #### C BC ####[facility] Rwhugdgqaf0415[address] [place], [place] [address]Dr. Airam Tripathi IG # 0.02 10e3/ul Normal 0.00-0.03 [facility] Comment on above: Performed By: #### C BC ####[facility] Jjzanxbvkv0125 [place] [address]Dr. Airam Tripathi IG % 0.3 % Normal 0.0-0.5 [facility] Comment on above: Performed By: #### C BC ####[facility] Fyfkmnqifi[address] [place], [place] [address]Dr. Airam Tripathi LYMPH # 1.3 103/ul Normal 1.2-3.8 [facility] Comment on above: Performed By: #### C BC ####[facility] Lyetislcvm[address] [place], [place] [address]Dr. Selenaneil Tripathi Lymphocytes/100 WBC (Bld) 21.7 % Normal 20.5-60.0 [facility] Comment on above: Performed By: #### C BC ####[facility] Pahmikfuvo[address] [place], [place] [address]Dr. Airam Tripathi MANUAL DIFF REQ NO Normal [facility] Comment on above: Performed By: #### C BC ####[facility] Jegftzymgv[address] [place], [place] [address]Dr. Selenaneil Tripathi MCH (RBC) [Entitic mass] 30.7 pg Normal 26.7-34.0 [facility] Comment on above: Performed By: #### C BC ####[facility] Cstalxpyis[address] [place], [place] [address]Dr. Airam Tripathi MCHC (RBC) [Mass/Vol] 31.0 g/dL Normal 29.9-35.2 [facility] Comment on above: Performed By: #### C BC ####[facility] Qpfyypytzl[address] [place], [place] [address]Dr. Selenaneil Tripathi MCV (RBC) [Entitic vol] 99.1 fL Critically high 81.0-99.0 [facility] Comment on above: Performed By: #### C BC ####[facility] Hzsqdymioo[address] [place], [place] [address]Dr. Airam Tripathi MONO # 0.3 103/ul Normal 0.3-0.8 [facility] Comment on above: Performed By: #### C BC ####[facility] Kvfwnzpulc8708 [place] [phone]. Airam Tripathi Monocytes/100 WBC (Bld) 5.2 % Normal 1.7-12.0 [facility] Comment on above: Performed By: #### C BC ####[facility] Ofjizegrmm7246 [place] [phone]. Airam Tripathi NEUT # 4.1 103/ul Normal 1.4-6.5 [facility] Comment on above: Performed By: #### C BC ####[facility] Ztqurvyyes2528 [place] [phone]. Airam Tripathi Neutrophils/100 WBC (Bld) 68.9 % Normal 43.0-75.0 [facility] Comment on above: Performed By: #### C BC ####[facility] Nahuefsnsa6245 [place] [phone]. Airam Tripathi Platelet mean volume (Bld) [Entitic vol] 9.8 fL Normal 9.5-13.5 [facility] Comment on above: Performed By: #### C BC ####[facility] Jelxuhjixm3867 [place] [address]Dr. Airam Tripathi PLT 329 103/ul Normal 150-450 [facility] Comment on above: Performed By: #### C BC ####[facility] Vcfbgknsyv7721 [place] [phone]. Airam Tripathi RBC 3.19 106/ul Critically low 4.20-5.40 [facility] Comment on above: Performed By: #### C BC ####[facility] Becbgzznfq0779 [place] [phone]. Airam Tripathi WBC 5.9 103/ul Normal 4.0-11.0 [facility] Comment on above: Performed By: #### C BC ####[facility] Hyqfmxuper2640 [place] [phone] Selenaneil Tripathi PROF 14(COMP METB)on 022 Albumin [Mass/Vol] 2.9 g/dL Critically low 3.4-5.0 [facility] Comment on above: Performed By: #### C MP ####[facility] Kdocgghzgr5094 [place] [address]Dr. Airam Deuce Albumin/Globulin [Mass ratio] 0.9 {ratio} Normal [facility] Comment on above: Performed By: #### C MP ####[facility] Jpseuivuqz5781 [place] [address]Dr. Airam Deuce ALP [Catalytic activity/Vol] 127 U/L Critically high 46-116 [facility] Comment on above: Performed By: #### C MP ####[facility] Jbbwsuvmiw0094 [place] [address]Dr. Airam Deuce ALT [Catalytic activity/Vol] 22 U/L Normal 14-59 [facility] Comment on above: Performed By: #### C MP ####[facility] Trnrybvuty6[address] [place], [place] [address]Dr. Airam Tripathi Anion gap [Moles/Vol] 6.7 mmol/L Normal [facility] Comment on above: Performed By: #### C MP ####[facility] Nsiggbbfes95[address] [place], [place] [address]Dr. Airam Deuce AST [Catalytic activity/Vol] 24 U/L Normal 15-37 [facility] Comment on above: Performed By: #### C MP ####[facility] Qdfvasupqn3100[address] [place], [place] [address]Dr. Airam Tripathi Bilirubin [Mass/Vol] 0.2 mg/dL Normal 0.2-1.0 [facility] Comment on above: Performed By: #### C MP ####[facility] Hejypmxtjv17[address] [place], [place] [address]Dr. Airam Tripathi Calcium [Mass/Vol] 8.2 mg/dL Critically low 8.5-10.1 [facility] Comment on above: Performed By: #### C MP ####[facility] Qfqubnpakw8308 [place] [address]Dr. Airam Tripathi Chloride [Moles/Vol] 105 mmol/L Normal 98-107 [facility] Comment on above: Performed By: #### C MP ####[facility] Qaephfivly5156 [place] [phone]. Airam Tripathi CO2 [Moles/Vol] 28.2 mmol/L Normal 21.0-32.0 [facility] Comment on above: Performed By: #### C MP ####[facility] Zgdtujhlnw7130 [place] [phone]. Airam Tripathi Creatinine [Mass/Vol] 1.22 mg/dL Critically high 0.55-1.02 [facility] Comment on above: Performed By: #### C MP ####[facility] Tmlrcvcqaz1383 [place] [address]Dr. Airam Tripathi EGFR-AF ISRAELI 54 mL/min/1.73m2 Critically low >=60 [facility] Comment on above: Performed By: #### C MP ####[facility] Sptzmvxwxk7[address] [place], [place] [address]Dr. Airam Tripathi EGFR-NON AF ISRA[place]I 45 mL/min/1.73m2 Critically low >=60 [facility] Comment on above: Performed By: #### C MP ####[facility] Qaobqxpdsj0675 [place] [address]Dr. Airam Tripathi Globulin (S) [Mass/Vol] 3.2 g/dL Normal [facility] Comment on above: Performed By: #### C MP ####[facility] Rckzcpfnvf1804[address] [place], [place] [address]Dr. Airam Tripathi Glucose [Mass/Vol] 77 mg/dL Normal 74-106 [facility] Comment on above: Performed By: #### C MP ####[facility] Vdfpcufdor45[address] [place], [place] [address]Dr. Airam Tripathi Potassium [Moles/Vol] 4.9 mmol/L Normal 3.5-5.1 [facility] Comment on above: Performed By: #### C MP ####[facility] Xuwbypdhep389[address] [place], [place] [address]Dr. Airam Tripathi Protein [Mass/Vol] 6.1 g/dL Critically low 6.4-8.2 [facility] Comment on above: Performed By: #### C MP ####[facility] Qkqydpnobd4448 [place] [address]Dr. Airam Tripathi Sodium [Moles/Vol] 135 mmol/L Critically low 136-145 Th [facility] Comment on above: Performed By: #### C MP ####[facility] Jjikongjui2[address] [place], [place] [address]Dr. Airam Tripathi Urea nitrogen [Mass/Vol] 30.0 mg/dL Critically high 7.0-18.0 [facility] Comment on above: Performed By: #### C MP ####[facility] Gbedvgcjhx7518[address] [place], [place] [address]Dr. Airam Tripathi Urea nitrogen/Creatinine [Mass ratio] 24.6 mg/mg Normal [facility] Comment on above: Performed By: #### C MP ####[facility] Eqtfevgjge7540[address] [place], [place] [address]Dr. Airam Deuce OSMOLALITYon 04-23-2022 Osmolality [Osmolality] 289 mosm/kg Normal 275-295 [facility] Comment on above: Performed By: #### O SMO ####[facility] Vyebggodhx[address] [place], [place] [address]Dr. Airam Tripathi CBC AUTO DIFFon 04-20-2022 BASO # 0.0 103/ul Normal 0.0-0.1 [facility] Comment on above: Performed By: #### C BC ####[facility] Xxvlnijkmf328[address] [place], [place] [address]Dr. Airam Deuce Basophils/100 WBC (Bld) 0.4 % Normal 0.2-2.0 [facility] Comment on above: Performed By: #### C BC ####[facility] Yurghuhupy25[address] [place], [place] [address]Dr. Airam Deuce EO # 0.2 103/ul Normal 0.0-0.7 [facility] Comment on above: Performed By: #### C BC ####[facility] Wjuirmvyub5584[address] [place], [place] [address]Dr. Selenaneil Tripathi Eosinophils/100 WBC (Bld) 3.1 % Normal 0.9-7.0 [facility] Comment on above: Performed By: #### C BC ####[facility] Sbotlakgfq6937 [place] [address]Dr. Airam Tripathi Erythrocyte distribution width (RBC) [Ratio] 13.8 % Normal 11.0-15.0 [facility] Comment on above: Performed By: #### C BC ####[facility] Smzlxwuoyk2239[address] [place], [place] [address]DrKianna Airam Tripathi Hematocrit (Bld) [Volume fraction] 29.5 % Critically low 36.0-48.0 [facility] Comment on above: Performed By: #### C BC ####[facility] Hgqgwtakew237[address] [place], [place] [address]DrKianna Airam Tripathi Hemoglobin (Bld) [Mass/Vol] 9.2 g/dL Critically low 12.0-16.0 [facility] Comment on above: Performed By: #### C BC ####[facility] Hcradbyvpb226[address] [place], [place] [address]DrKianna Airam Tripathi IG # 0.02 10e3/ul Normal 0.00-0.03 [facility] Comment on above: Performed By: #### C BC ####[facility] Ebzlzmeccr[address] [place], [place] [address]DrKianna Airam Tripathi IG % 0.4 % Normal 0.0-0.5 [facility] Comment on above: Performed By: #### C BC ####[facility] Sxcszxsfgz[address] [place], [place] [address]DrKianna Airam Tripathi LYMPH # 0.8 103/ul Critically low 1.2-3.8 [facility] Comment on above: Performed By: #### C BC ####[facility] Knxvmhtcbv16[address] [place], [place] [address]DrKianna Airam Deuce Lymphocytes/100 WBC (Bld) 14.0 % Critically low 20.5-60.0 [facility] Comment on above: Performed By: #### C BC ####[facility] Zebbkpetqa[address] [place], [place] [address]DrKianna Selenaneil Tripathi MANUAL DIFF REQ NO Normal [facility] Comment on above: Performed By: #### C BC ####[facility] Pjczfcfzxr3231 [place] [phone]. Airam Tripathi MCH (RBC) [Entitic mass] 30.4 pg Normal 26.7-34.0 [facility] Comment on above: Performed By: #### C BC ####[facility] Ibgyawxuty0961 [place] [address]Dr. Airam Tripathi MCHC (RBC) [Mass/Vol] 31.2 g/dL Normal 29.9-35.2 [facility] Comment on above: Performed By: #### C BC ####[facility] Mxdnmccrpx0124 [place] [address]Dr. Airam Deuce MCV (RBC) [Entitic vol] 97.4 fL Normal 81.0-99.0 [facility] Comment on above: Performed By: #### C BC ####[facility] Eepmkoxcio[address] [place], [place] [address]Dr. Selenaneil Tripathi MONO # 0.3 103/ul Normal 0.3-0.8 [facility] Comment on above: Performed By: #### C BC ####[facility] Bkrlbsacgq[address] [place], [place] [address]Dr. Selenaneil Tripathi Monocytes/100 WBC (Bld) 5.6 % Normal 1.7-12.0 [facility] Comment on above: Performed By: #### C BC ####[facility] Kppkvdxmzu[address] [place], [place] [address]Dr. Airam Deuce NEUT # 4.2 103/ul Normal 1.4-6.5 [facility] Comment on above: Performed By: #### C BC ####[facility] Zywemfxgzk[address] [place], [place] [address]DrKianna Selenaneil Tripathi Neutrophils/100 WBC (Bld) 76.5 % Critically high 43.0-75.0 [facility] Comment on above: Performed By: #### C BC ####[facility] Ruhazwiqip[address] [place], [place] [address]DrKianna Tripathi Platelet mean volume (Bld) [Entitic vol] 9.4 fL Critically low 9.5-13.5 [facility] Comment on above: Performed By: #### C BC ####[facility] Tdkeildyrz99[address] [place] [phone]. Airam Tripathi PLT 250 103/ul Normal 150-450 [facility] Comment on above: Performed By: #### C BC ####[facility] Cyktdwfuys5394 [place] [phone]. Selenaneil Deuce RBC 3.03 106/ul Critically low 4.20-5.40 [facility] Comment on above: Performed By: #### C BC ####[facility] Xhubvwvzjt5055 [place] [phone]. Airam Tripathi WBC 5.5 103/ul Normal 4.0-11.0 [facility] Comment on above: Performed By: #### C BC ####[facility] Grxnvfzrqk0144 [place] [address]Dr. Airam Tripathi PROF 14(COMP METB)on 022 Albumin [Mass/Vol] 2.7 g/dL Critically low 3.4-5.0 [facility] Comment on above: Performed By: #### C MP ####[facility] Iubktjlzfu7349 [place] [address]Dr. Airam Tripathi Albumin/Globulin [Mass ratio] 0.9 {ratio} Normal [facility] Comment on above: Performed By: #### C MP ####[facility] Ewvqjmzhwy2540 [place] [address]Dr. Airam Tripathi ALP [Catalytic activity/Vol] 113 U/L Normal 46-116 [facility] Comment on above: Performed By: #### C MP ####[facility] Bdvwhggtnj8759 [place] [phone]. Airam Tripathi ALT [Catalytic activity/Vol] 20 U/L Normal 14-59 [facility] Comment on above: Performed By: #### C MP ####[facility] Pyagwseshl3612 [place] [phone]. Airam Tripathi Anion gap [Moles/Vol] 11.1 mmol/L Normal [facility] Comment on above: Performed By: #### C MP ####[facility] Whojedqvbk4949 [place] [phone]. Airam Tripathi AST [Catalytic activity/Vol] 19 U/L Normal 15-37 [facility] Comment on above: Performed By: #### C MP ####[facility] Nazdcczpfr4301 [place] [phone]. Airam Tripathi Bilirubin [Mass/Vol] 0.2 mg/dL Normal 0.2-1.0 [facility] Comment on above: Performed By: #### C MP ####[facility] Zqyukyyadc7632 [place] [phone]. Airam Tripathi Calcium [Mass/Vol] 8.3 mg/dL Critically low 8.5-10.1 [facility] Comment on above: Performed By: #### C MP ####[facility] Lrouprdlov7[address] [place], [place] [address]Dr. Airam Tripathi Chloride [Moles/Vol] 104 mmol/L Normal 98-107 [facility] Comment on above: Performed By: #### C MP ####[facility] Onfyldhbyj[address] [place], [place] [address]Dr. Airam Tripathi CO2 [Moles/Vol] 25.3 mmol/L Normal 21.0-32.0 [facility] Comment on above: Performed By: #### C MP ####[facility] Qqzwosmesz44[address] [place], [place] [address]Dr. Airam Tripathi Creatinine [Mass/Vol] 1.33 mg/dL Critically high 0.55-1.02 [facility] Comment on above: Performed By: #### C MP ####[facility] Ndwmxpfnzv3631 [place] [phone]. Airam Deuce EGFR-AF ISRAELI 49 mL/min/1.73m2 Critically low >=60 [facility] Comment on above: Performed By: #### C MP ####[facility] Powxadvbdq5852 [place] [phone]. Selenaneil Deuce EGFR-NON AF ISRAELI 41 mL/min/1.73m2 Critically low >=60 [facility] Comment on above: Performed By: #### C MP ####[facility] Sccewcfsvl2744 [place] [address]Dr. Airam Tripathi Globulin (S) [Mass/Vol] 3.1 g/dL Normal [facility] Comment on above: Performed By: #### C MP ####[facility] Yfbxjmluxs1269 [place] [phone]. Airam Tripathi Glucose [Mass/Vol] 88 mg/dL Normal 74-106 [facility] Comment on above: Performed By: #### C MP ####[facility] Qcbtoshphg4138 [place] [address]Dr. Airam Deuce Potassium [Moles/Vol] 5.4 mmol/L Critically high 3.5-5.1 [facility] Comment on above: Performed By: #### C MP ####[facility] Ubkbagkkuz8105 [place] [address]Dr. Airam Deuce Protein [Mass/Vol] 5.8 g/dL Critically low 6.4-8.2 [facility] Comment on above: Performed By: #### C MP ####[facility] Kxhileybcg3472 [place] [address]Dr. Airam Deuce Sodium [Moles/Vol] 135 mmol/L Critically low 136-145 [facility] Comment on above: Performed By: #### C MP ####[facility] Aqbeqfmogs5211 [place] [address]Dr. Airam Deuce Urea nitrogen [Mass/Vol] 38.0 mg/dL Critically high 7.0-18.0 [facility] Comment on above: Performed By: #### C MP ####[facility] Rcgkkmytwg2430 [place] [address]Dr. Airam Deuce Urea nitrogen/Creatinine [Mass ratio] 28.6 mg/mg Normal [facility] Comment on above: Performed By: #### C MP ####[facility] Dyyrqrzruc8940 [place] [address]Dr. Airam Deuce OSMOLALITYon 04-15-2022 Osmolality [Osmolality] 284 mosm/kg Normal 275-295 [facility] Comment on above: Performed By: #### O SMO ####[facility] Skkbbvbluj0783 [place] [address]Dr. Airam Tripathi CBC AUTO DIFFon 04-14-2022 BASO # 0.0 103/ul Normal 0.0-0.1 [facility] Comment on above: Performed By: #### C BC ####[facility] Hkcnyirkuc8137[address] [place], [place] [address]Dr. Airam Tripathi Basophils/100 WBC (Bld) 0.5 % Normal 0.2-2.0 [facility] Comment on above: Performed By: #### C BC ####[facility] Wxrkqconru4809[address] [place], [place] [address]Dr. Airam Tripathi EO # 0.3 103/ul Normal 0.0-0.7 [facility] Comment on above: Performed By: #### C BC ####[facility] Upejpauxrl[address] [place], [place] [address]Dr. Airam Tripathi Eosinophils/100 WBC (Bld) 3.6 % Normal 0.9-7.0 [facility] Comment on above: Performed By: #### C BC ####[facility] Jemjxoytsc[address] [place], [place] [address]Dr. Airam Tripathi Erythrocyte distribution width (RBC) [Ratio] 13.4 % Normal 11.0-15.0 [facility] Comment on above: Performed By: #### C BC ####[facility] Ngoxbhihvn847845 [address] [place], [place] [address]Dr. Airam Tripathi Hematocrit (Bld) [Volume fraction] 30.6 % Critically low 36.0-48.0 [facility] Comment on above: Performed By: #### C BC ####[facility] Sswvxhdnog6913[address] [place], [place] [address]Dr. Airam Tripathi Hemoglobin (Bld) [Mass/Vol] 9.7 g/dL Critically low 12.0-16.0 [facility] Comment on above: Performed By: #### C BC ####[facility] Ujcsmmdnre9[address] [place], [place] [address]Dr. Airam Tripathi IG # 0.08 10e3/ul Critically high 0.00-0.03 [facility] Comment on above: Performed By: #### C BC ####[facility] Bfqieqlnco0383 [place] [address]DrKianna Airam Tripathi IG % 0.9 % Critically high 0.0-0.5 [facility] Comment on above: Performed By: #### C BC ####[facility] Nayleqeoka4669[address] [place], [place] [address]DrKianna Airam Deuce LYMPH # 2.1 103/ul Normal 1.2-3.8 [facility] Comment on above: Performed By: #### C BC ####[facility] Uwpaywtkod7380[address] [place], [place] [address]DrKianna Airam Deuce Lymphocytes/100 WBC (Bld) 24.2 % Normal 20.5-60.0 [facility] Comment on above: Performed By: #### C BC ####[facility] Qeaejvmdaa39[address] [place], [place] [address]DrKianna Airam Deuce MANUAL DIFF REQ NO Normal [facility] Comment on above: Performed By: #### C BC ####[facility] Tsnevdgajh[address] [place], [place] [address]DrKianna Airam Deuce MCH (RBC) [Entitic mass] 30.4 pg Normal 26.7-34.0 [facility] Comment on above: Performed By: #### C BC ####[facility] Exrjobqbjw5365[address] [place], [place] [address]DrKianna Airam Deuce MCHC (RBC) [Mass/Vol] 31.7 g/dL Normal 29.9-35.2 [facility] Comment on above: Performed By: #### C BC ####[facility] Scsexmupfs45[address] [place], [place] [address]DrKianna Tripathi MCV (RBC) [Entitic vol] 95.9 fL Normal 81.0-99.0 [facility] Comment on above: Performed By: #### C BC ####[facility] Nzlqzkczgo[address] [place], [place] [address]DrKianna Tripathi MONO # 0.5 103/ul Normal 0.3-0.8 [facility] Comment on above: Performed By: #### C BC ####[facility] Ecgsnkcykq2261 [place] [address]Dr. Airam Tripathi Monocytes/100 WBC (Bld) 6.0 % Normal 1.7-12.0 [facility] Comment on above: Performed By: #### C BC ####[facility] Qtoixxebms3595 [place] [address]Dr. Airam Tripathi NEUT # 5.6 103/ul Normal 1.4-6.5 [facility] Comment on above: Performed By: #### C BC ####[facility] Bmxioqgyry3293 [place] [address]Dr. Airam Tripathi Neutrophils/100 WBC (Bld) 64.8 % Normal 43.0-75.0 [facility] Comment on above: Performed By: #### C BC ####[facility] Ftktbrhvrx3914[address] [place], [place] [address]Dr. Airam Tripathi Platelet mean volume (Bld) [Entitic vol] 9.2 fL Critically low 9.5-13.5 [facility] Comment on above: Performed By: #### C BC ####[facility] Vyukkphhwj4[address] [place], [place] [address]Dr. Airam Tripathi PLT 296 103/ul Normal 150-450 [facility] Comment on above: Performed By: #### C BC ####[facility] Beptibaflr1187 [place] [address]Dr. Airam Tripathi RBC 3.19 106/ul Critically low 4.20-5.40 [facility] Comment on above: Performed By: #### C BC ####[facility] Pztosdhwvm8049 [place] [address]Dr. Airam Tripathi WBC 8.6 103/ul Normal 4.0-11.0 [facility] Comment on above: Performed By: #### C BC ####[facility] Frrhjqairm9996 [place] [address]DrKianna Tripathi PROF 14(COMP METB)on 10-20-2 022 Albumin [Mass/Vol] 3.2 g/dL Critically low 3.4-5.0 [facility] Comment on above: Performed By: #### C MP ####[facility] Krulnzujja9882 [place] [address]Dr. Airam Tripathi Albumin/Globulin [Mass ratio] 1.0 {ratio} Normal [facility] Comment on above: Performed By: #### C MP ####[facility] Qwdfkckgrx4816 [place] [address]Dr. Airam Tripathi ALP [Catalytic activity/Vol] 126 U/L Critically high 46-116 [facility] Comment on above: Performed By: #### C MP ####[facility] Ocxbgpkixa2664[address] [place], [place] [address]Dr. Airam Tripathi ALT [Catalytic activity/Vol] 27 U/L Normal 14-59 [facility] Comment on above: Performed By: #### C MP ####[facility] Akzujoeyvu4209[address] [place], [place] [address]Dr. Airam Tripathi Anion gap [Moles/Vol] 9.6 mmol/L Normal [facility] Comment on above: Performed By: #### C MP ####[facility] Mttlwzetjq4177[address] [place], [place] [address]Dr. Airam Tripathi AST [Catalytic activity/Vol] 25 U/L Normal 15-37 [facility] Comment on above: Performed By: #### C MP ####[facility] Ioknfrkgbc963[address] [place], [place] [address]Dr. Airam Tripathi Bilirubin [Mass/Vol] 0.3 mg/dL Normal 0.2-1.0 [facility] Comment on above: Performed By: #### C MP ####[facility] Jfkwqiunma[address] [place], [place] [address]Dr. Airam Tripathi Calcium [Mass/Vol] 8.1 mg/dL Critically low 8.5-10.1 [facility] Comment on above: Performed By: #### C MP ####[facility] Visisajeva8398[address] [place], [place] [address]Dr. Airam Tripathi Chloride [Moles/Vol] 100 mmol/L Normal 98-107 [facility] Comment on above: Performed By: #### C MP ####[facility] Twpihsfpfa8402 [place] [address]Dr. Airam Tripathi CO2 [Moles/Vol] 26.5 mmol/L Normal 21.0-32.0 [facility] Comment on above: Performed By: #### C MP ####[facility] Azpfawttxp4074 [place] [address]Dr. Airam Deuce Creatinine [Mass/Vol] 1.52 mg/dL Critically high 0.55-1.02 [facility] Comment on above: Performed By: #### C MP ####[facility] Ejoywzelxr4695 [place] [address]Dr. Airam Deuce EGFR-AF ISRAELI 42 mL/min/1.73m2 Critically low >=60 [facility] Comment on above: Performed By: #### C MP ####[facility] Mjgbkzxguu8915 [place] [address]Dr. Airam Deuce EGFR-NON AF ISRAELI 35 mL/min/1.73m2 Critically low >=60 [facility] Comment on above: Performed By: #### C MP ####[facility] Ghhxpetefh365[address] [place], [place] [address]Dr. Airam Deuce Globulin (S) [Mass/Vol] 3.3 g/dL Normal [facility] Comment on above: Performed By: #### C MP ####[facility] Camoqlwujr3659 [place] [address]Dr. Airam Tripathi Glucose [Mass/Vol] 75 mg/dL Normal 74-106 [facility] Comment on above: Performed By: #### C MP ####[facility] Oruujebprd5369 [place] [phone]. Airam Deuce Potassium [Moles/Vol] 4.1 mmol/L Normal 3.5-5.1 [facility] Comment on above: Performed By: #### C MP ####[facility] Haznebouuf6297 [place] [address]Dr. Selenaneil Tripathi Protein [Mass/Vol] 6.5 g/dL Normal 6.4-8.2 [facility] Comment on above: Performed By: #### C MP ####[facility] Pgmccoknin55264[address] [place], [place] [address]Dr. Ariam Tripathi Sodium [Moles/Vol] 132 mmol/L Critically low 136-145 Th e [facility] Comment on above: Performed By: #### C MP ####[facility] Siovhejwlx9249[address] [place], [place] [address]Dr. Airam Tripathi Urea nitrogen [Mass/Vol] 40.0 mg/dL Critically high 7.0-18.0 [facility] Comment on above: Performed By: #### C MP ####[facility] Vdareujasw9830[address] [place], [place] [address]Dr. Airam Tripathi Urea nitrogen/Creatinine [Mass ratio] 26.3 mg/mg Normal [facility] Comment on above: Performed By: #### C MP ####[facility] Awltlojwgg6664[address] [place], [place] [address]Dr. Airam Tripathi OSMOLALITYon 04-10-2022 Osmolality [Osmolality] 280 mosm/kg Normal 275-295 [facility] Comment on above: Performed By: #### O SMO ####[facility] Weagoghbek99[address] [place], [place] [address]Dr. Airam Tripathi PTH INTACTon 04-09-2022 PTH, Intact 89 pg/mL Critically high 15-65 [facility] Comment on above: Performed By: #### P THINT ####[facility] Hlmzivxxxh[address] [place], [place] [address]Dr. Airam Tripathi CBC W MANUAL DIFFon 04-08-20 22 ATYPICAL LYMPH # Normal [facility] Comment on above: Performed By: #### C BCMAN ####[facility] Numwctrkjx2940[address] [place], [place] [address]Dr. Airam Tripathi ATYPICAL LYMPH % Normal [facility] Comment on above: Performed By: #### C BCMAN ####[facility] Kefbbxjvxi6937[address] [place], [place] [address]Dr. Airam Tripathi BAND # Normal 0.0-0.3 [facility] Comment on above: Performed By: #### C BCMAN ####[facility] Rhotgfnkmy2656 [place] [phone]. Yilan Tripathi BAND % Normal 0-5 [facility] Comment on above: Performed By: #### C CHRISTEN ####[facility] Mhjwueahxp7103 [place] [phone]. Yineil Tripathi BASOM # 0.00 103/ul Normal 0.00-0.10 [facility] Comment on above: Performed By: #### C CHRISTEN ####[facility] Bvtrhcydfy7475 [place] [address]Dr. Yineil Tripathi BASOM % 0.0 % Critically low 0.2-2.0 [facility] Comment on above: Performed By: #### C CHRISTEN ####[facility] Hmuxxipgou27[address] [place], [place] [address]Dr. Yineil Tripathi BLAST # Normal [facility] Comment on above: Performed By: #### C CHRISTEN ####[facility] Wzsospupgk95[address] [place], [place] [address]Dr. Yilan Tripathi BLAST % Normal [facility] Comment on above: Performed By: #### C CHRISTEN ####[facility] Axhtlbbzgj86[address] [place], [place] [address]Dr. Airam Tripathi CORRECTED WBC Normal 4.0-11.0 [facility] Comment on above: Performed By: #### C CHRISTEN ####[facility] Scgexkykzb3940[address] [place], [place] [address]Dr. Yineil Tripathi EOS # 0.00 103/ul Normal 0.00-0.70 [facility] Comment on above: Performed By: #### C CHRISTEN ####[facility] Lxluelakia1874 [place] [address]Dr. Yineil Tripathi EOS% 0.0 % Critically low 0.9-7.0 [facility] Comment on above: Performed By: #### C CHRISTEN ####[facility] Iiinwgwpag192[address] [place], [place] [address]Dr. Yineil Tripathi HCT 29.7 % Critically low 36.0-48.0 [facility] Comment on above: Performed By: #### Jodee VELÁSQUEZ ####[facility] Hfbavoxxqs8372 [place], [place] [address]Vj. Airam Tripathi HGB 9.5 g/dl Critically low 12.0-16.0 [facility] Comment on above: Performed By: #### Jodee VELÁSQUEZ ####[facility] Kaztqezasu9444 [place], [place] [address]Hc. Airam Tripathi LYMPHM # 0.42 103/ul Critically low 1.20-3.80 [facility] Comment on above: Performed By: #### Jodee VELÁSQUEZ ####[facility] Qgnstycwhy0134 [place] [phone]. Airam Tripathi LYMPHM% 7.0 % Critically low 20.5-60.0 [facility] Comment on above: Performed By: #### Jodee VELÁSQUEZ ####[facility] Vxvmasamzv3135 [place] [phone]. Airam Tripathi MCH 30.9 pg Normal 26.7-34.0 [facility] Comment on above: Performed By: #### Jodee VELÁSQUEZ ####[facility] Shcwnbymdl7843 [place] [phone]. Airam Tripathi MCHC 32.0 g/dl Normal 29.9-35.2 [facility] Comment on above: Performed By: #### Jodee VELÁSQUEZ ####[facility] Nxwypxvkna4811 [place] [phone]. Airam Tripathi MCV 96.7 fL Normal 81.0-99.0 [facility] Comment on above: Performed By: #### Jodee VELÁSQUEZ ####[facility] Iubnnwprsf8998 [place] [phone]. Airam Tripathi METAMYELOCYTE # Normal [facility] Comment on above: Performed By: #### Jodee VELÁSQUEZ ####[facility] Wifijxpqlc6160 [place] [phone]. Airam Tripathi METAMYELOCYTE % Normal [facility] Comment on above: Performed By: #### Jodee VELÁSQUEZ ####[facility] Sayealatkv3113 [place] [phone]. Airam Tripathi MONOM# 0.36 103/ul Normal 0.30-0.80 [facility] Comment on above: Performed By: #### C CHRISTEN ####[facility] Ozkckluzee4168 [place] [phone]. Airam Tripathi MONOM% 6.0 % Normal 1.7-12.0 [facility] Comment on above: Performed By: #### C CHRISTEN ####[facility] Anjdraqefb7500 [place] [phone]. Airam Tripathi MPV 9.5 fL Normal 9.5-13.5 [facility] Comment on above: Performed By: #### C CHRISTEN ####[facility] Ggmzhhsthh8080 [place] [address]Dr. Airam Tripathi MYELOCYTE # Normal [facility] Comment on above: Performed By: #### C CHRISTEN ####[facility] Asnqktdrdc7[address] [place], [place] [address]Dr. Airam Tripathi MYELOCYTE % Normal [facility] Comment on above: Performed By: #### C CHRISTEN ####[facility] Hidbptorzz6142 [place] [address]Dr. Airam Tripathi NRBC Normal [facility] Comment on above: Performed By: #### C CHRISTEN ####[facility] Iontnhfrlt9434 [place] [phone]. Airam Tripathi PLT 185 103/ul Normal 150-450 [facility] Comment on above: Performed By: #### C CHRISTEN ####[facility] Atiqhnrvtw7445 [place] [phone]. Airam Tripathi RBC 3.07 106/ul Critically low 4.20-5.40 [facility] Comment on above: Performed By: #### C CHRISTEN ####[facility] Hsjvkpcgdf[address] [place], [place] [address]Dr. Airam Tripathi RDW 13.6 % Normal 11.0-15.0 [facility] Comment on above: Performed By: #### C CHRISTEN ####[facility] Sxccdxbbrm[address] [place], [place] [address]Dr. Airam Tripathi SEG # 5.22 103/ul Normal 1.40-6.50 [facility] Comment on above: Performed By: #### C CHRISTEN ####[facility] Tdmqizeykb0818 [place] [address]Dr. Airam Tripathi SEG % 87.0 % Critically high 43.0-75.0 [facility] Comment on above: Performed By: #### C CHRISTEN ####[facility] Tqooitzazd7508 [place] [address]Dr. Airam Tripathi WBC 6.0 103/ul Normal 4.0-11.0 [facility] Comment on above: Performed By: #### C CHRISTEN ####[facility] Mvwvfxuykm029[address] [place], [place] [address]Dr. Airam Tripathi FREE THYROXINE INDEX T7on FTI 1.57 Normal 1.30-4.50 [facility] Comment on above: Performed By: #### T 7, TSH, CMP ####[facility] Bkvzhec[address] [place], [place] [address]Dr. Airam Tripathi T3U 32.0 % Normal 30.0-39.0 [facility] Comment on above: Performed By: #### T 7, TSH, CMP ####[facility] Yimckuqgnw[address] [place], [place] [address]Dr. Airam Tripathi T4 [Mass/Vol] 4.90 ug/dL Normal 4.80-13.90 [facility] Comment on above: Performed By: #### T 7, TSH, CMP ####[facility] Vhknyqcslg24[address] [place], [place] [address]Dr. Airam Deuce PROF 14(COMP METB)on 022 Albumin [Mass/Vol] 3.0 g/dL Critically low 3.4-5.0 Th e [facility] Comment on above: Performed By: #### T 7, TSH, CMP ####[facility] Ewlmscagdt364[address] [place], [place] [address]Dr. Airam Tripathi Albumin/Globulin [Mass ratio] 1.0 {ratio} Normal [facility] Comment on above: Performed By: #### T 7, TSH, CMP ####[facility] D[address]kn[address]ns[address] [place] [id number]. Airam Tripathi ALP [Catalytic activity/Vol] 106 U/L Normal 46-116 [facility] Comment on above: Performed By: #### T 7, TSH, CMP ####[facility] Dzjy[address]zloh[address] [place] [address]Dr. Airam Tripathi ALT [Catalytic activity/Vol] 20 U/L Normal 14-59 [facility] Comment on above: Performed By: #### T 7, TSH, CMP ####[facility] Etqhvkpwzp66[address] [place] [address]Dr. Airam Tripathi Anion gap [Moles/Vol] 10.8 mmol/L Normal [facility] Comment on above: Performed By: #### T 7, TSH, CMP ####[facility] Duwaipqmeo[address] [place], [place] [address]Dr. Airam Tripathi AST [Catalytic activity/Vol] 19 U/L Normal 15-37 [facility] Comment on above: Performed By: #### T 7, TSH, CMP ####[facility] Mlpapiopto3615[address] [place], [place] [address]Dr. Airam Tripathi Bilirubin [Mass/Vol] 0.3 mg/dL Normal 0.2-1.0 [facility] Comment on above: Performed By: #### T 7, TSH, CMP ####[facility] Ksrsagsfsz772[address] [place], [place] [address]Dr. Airam Tripathi Calcium [Mass/Vol] 8.0 mg/dL Critically low 8.5-10.1 [facility] Comment on above: Performed By: #### T 7, TSH, CMP ####[facility] Gutwxvqhbi2850[address] [place], [place] [address]Dr. Airam Tripathi Chloride [Moles/Vol] 100 mmol/L Normal 98-107 [facility] Comment on above: Performed By: #### T 7, TSH, CMP ####[facility] Vtremlwyct[address] [place], [place] [address]Dr. Airam Tripathi CO2 [Moles/Vol] 24.3 mmol/L Normal 21.0-32.0 [facility] Comment on above: Performed By: #### T 7, TSH, CMP ####[facility] Jwhyfklxck[address] [place], [place] [address]Dr. Airam Tripathi Creatinine [Mass/Vol] 1.12 mg/dL Critically high 0.55-1.02 [facility] Comment on above: Performed By: #### T 7, TSH, CMP ####[facility] Asnlebggka7564[address] [place], [place] [address]Dr. Airam Deuce EGFR-AF ISRAELI 60 mL/min/1.73m2 Normal >=60 [facility] Comment on above: Performed By: #### T 7, TSH, CMP ####[facility] Lfskhsnodj[address] [place], [place] [address]Dr. Airam Tripathi EGFR-NON AF ISRAELI 50 mL/min/1.73m2 Critically low >=60 [facility] Comment on above: Performed By: #### T 7, TSH, CMP ####[facility] Peghudwcus[address] [place], [place] [address]Dr. Selenaneil Tripathi Globulin (S) [Mass/Vol] 3.0 g/dL Normal [facility] Comment on above: Performed By: #### T 7, TSH, CMP ####[facility] Ezcfjzdefx4305[address] [place], [place] [address]Dr. Airam Tripathi Glucose [Mass/Vol] 76 mg/dL Normal 74-106 [facility] Comment on above: Performed By: #### T 7, TSH, CMP ####[facility] Xsfzspwhcf4429[address] [place], [place] [address]Dr. Selenaneil Tripathi Potassium [Moles/Vol] 4.1 mmol/L Normal 3.5-5.1 [facility] Comment on above: Performed By: #### T 7, TSH, CMP ####[facility] Dhjyfslutq5398[address] [place], [place] [address]Dr. Airam Tripathi Protein [Mass/Vol] 6.0 g/dL Critically low 6.4-8.2 Th [facility] Comment on above: Performed By: #### T 7, TSH, CMP ####[facility] Neoihjudkh[address] [place], [place] [address]Dr. Airam Tripathi Sodium [Moles/Vol] 131 mmol/L Critically low 136-145 Th [facility] Comment on above: Performed By: #### T 7, TSH, CMP ####[facility] Lsyyqlqapf9999[address] [place], [place] [address]Dr. Airam Tripathi Urea nitrogen [Mass/Vol] 32.0 mg/dL Critically high 7.0-18.0 [facility] Comment on above: Performed By: #### T 7, TSH, CMP ####[facility] Yxyfcbklwc[address] [place], [place] [address]Dr. Airam Tripathi Urea nitrogen/Creatinine [Mass ratio] 28.6 mg/mg Normal [facility] Comment on above: Performed By: #### T 7, TSH, CMP ####[facility] Jlsjvlxfni9916[address] [place], [place] [address]Dr. Airam Tripathi TSHon 04-08-2022 TSH 0.027 uIU/mL Critically low 0.358-3.74 0 [facility] Comment on above: Performed By: #### T 7, TSH, CMP ####[facility] Xocvgzwcyd9[address] [place], [place] [address]Dr. Airam Tripathi UA RANDOMon 04-08-2022 Bilirubin Ql (U) Negative Normal NEGATIVE [facility] Comment on above: Performed By: #### U A ####[facility] Fowqlhsqis0532[address] [place], [place] [address]Dr. Airam Tripathi Clarity (U) CLEAR Normal CLEAR [facility] Comment on above: Performed By: #### U A ####[facility] J[address]pt[address] [place], [place] [address]Dr. Airam Tripathi Color (U) LT. YELLOW Normal YELLOW [facility] Comment on above: Performed By: #### U A ####[facility] Hamwhaasfz[address] [place], [place] [address]Dr. Airam Tripathi Glucose Ql (U) Negative Normal NEGATIVE [facility] Comment on above: Performed By: #### U A ####[facility] Ziyftamvna43[address] [place], [place] [address]Dr. Airam Tripathi Hemoglobin Ql (U) Negative Normal NEGATIVE [facility] Comment on above: Performed By: #### U A ####[facility] Gdzpjbonmp[address] [place], [place] [address]Dr. Airam Tripathi Ketones Ql (U) Negative Normal NEGATIVE [facility] Comment on above: Performed By: #### U A ####[facility] Vsyrjshqwu[address] [place], [place] [address]Dr. Airam Tripathi LEUKOCYTES Negative Normal NEGATIVE [facility] Comment on above: Performed By: #### U A ####[facility] Wnmlwnyfxx2840[address] [place], [place] [address]Dr. Airam Tripathi Nitrite Ql (U) Negative Normal NEGATIVE [facility] Comment on above: Performed By: #### U A ####[facility] Cxumoardzs844[address] [place], [place] [address]Dr. Airam Tripathi pH (U) 6.0 [pH] Normal 5-9 [facility] Comment on above: Performed By: #### U A ####[facility] Vszitkxcvd[address] [place], [place] [address]Dr. Airam Tripathi SPEC GRAVITY 1.010 Normal 1.005-<=1. 025 [facility] Comment on above: Performed By: #### U A ####[facility] Qbshoszngz[address] [place], [place] [address]Dr. Airam Tripathi UA PROTEIN Negative Normal NEGATIVE/ TRACE [facility] Comment on above: Performed By: #### U A ####[facility] Tmqzisdwxe202[address] [place], [place] [address]Dr. Airam Tripathi Urobilinogen Qn (U) 0.2 {Ligia'U}/dL Normal 0.2 - 1. 0 [facility] Comment on above: Performed By: #### U A ####[facility] Y[address]ziwuwvek[address] [place], [place] [address]Dr. Airam Tripathi URINE T PROTEIN CREAT RATIOo n 04-08-2022 UR PROT CREAT RAT 0.32 Normal [facility] Comment on above: Performed By: #### U RTPCR ####[facility] P[address] [place] [address]Dr. Airam Tripathi UR TOTAL PROTEIN <6.0 Normal <=12.0 [facility] Comment on above: Performed By: #### U RTPCR ####[facility] Yqxqkzpqvv7[address] [place] [address]Dr. Airam Tripathi URINE CREAT 18.75 mg/dL Critically low 20.00-300. 00 [facility] Comment on above: Performed By: #### U RTPCR ####[facility] Ewrkykxajf[address] [place], [place] [address]Dr. Airam Tripathi FERRITINon 04-06-2022 Ferritin [Mass/Vol] 99.0 ng/mL Normal 8.0-252.0 [facility] Comment on above: Performed By: #### F ETIBC, VITAD, FERR ####[facility] Eygdvtwazh[address]27[address] [place], [place] [address]Dr. Airam Tripathi IRON AND TIBCon 04-06-2022 % SATURATION 15.4 % Normal [facility] Comment on above: Performed By: #### F ETIBC, VITAD, FERR ####[facility] Jcdnlnmwwm[address] [place], [place] [address]Dr. Airam Tripathi Iron [Mass/Vol] 43.0 ug/dL Critically low 50.0-170.0 [facility] Comment on above: Performed By: #### F ETIBC, VITAD, FERR ####[facility] Wusqiadmcf[address] [place], [place] [address]Dr. Airam Tripathi TIBC DIRECT 280.0 ug/dL Normal 250.0-450. 0 [facility] Comment on above: Performed By: #### F ETIBC, VITAD, FERR ####[facility] Lxlbwtwvyj[address] [place], [place] [address]Dr. Airam Deuce PROF 14(COMP METB)on 022 Albumin [Mass/Vol] 3.2 g/dL Critically low 3.4-5.0 Th [facility] Comment on above: Performed By: #### C MP, URIC ####[facility] Mybwlswqwg[address] [place], [place] [address]Dr. Airam Tripathi Albumin/Globulin [Mass ratio] 1.0 {ratio} Normal [facility] Comment on above: Performed By: #### C MP, URIC ####[facility] [address]wia[address] [place] [address]Dr. Airam Tripathi ALP [Catalytic activity/Vol] 118 U/L Critically high 46-116 [facility] Comment on above: Performed By: #### C MP, URIC ####[facility] I[address]jts6[address] [place] [address]Dr. Airam Tripathi ALT [Catalytic activity/Vol] 24 U/L Normal 14-59 [facility] Comment on above: Performed By: #### C MP, URIC ####[facility] L[address]ftptszht4707 [place] [address]Dr. Airam Tripathi Anion gap [Moles/Vol] 14.4 mmol/L Normal [facility] Comment on above: Performed By: #### C MP, URIC ####[facility] Ayjrzxgvfn[address] [place], [place] [address]Dr. Airam Tripathi AST [Catalytic activity/Vol] 21 U/L Normal 15-37 [facility] Comment on above: Performed By: #### C MP, URIC ####[facility] V[address]unfy[address] [place] [address]Dr. Airam Tripathi Bilirubin [Mass/Vol] 0.3 mg/dL Normal 0.2-1.0 [facility] Comment on above: Performed By: #### C MP, URIC ####[facility] Pfdopmgotm4274 [place] [address]Dr. Airam Tripathi Calcium [Mass/Vol] 8.0 mg/dL Critically low 8.5-10.1 [facility] Comment on above: Performed By: #### C MP, URIC ####[facility] Bfbimzfine[address]507 [place] [address]Dr. Airam Tripathi Chloride [Moles/Vol] 98 mmol/L Normal 98-107 [facility] Comment on above: Performed By: #### C MP, URIC ####[facility] Xigmgucyoh[address] [place], [place] [address]Dr. Airam Tripathi CO2 [Moles/Vol] 22.0 mmol/L Normal 21.0-32.0 [facility] Comment on above: Performed By: #### C MP, URIC ####[facility] Armhricjav[address] [place] [address]Dr. Airam Tripathi Creatinine [Mass/Vol] 1.86 mg/dL Critically high 0.55-1.02 [facility] Comment on above: Performed By: #### C MP, URIC ####[facility] Jqzfgjlgdp9414 [place] [address]Dr. Airam Tripathi EGFR-AF ISRAELI 33 mL/min/1.73m2 Critically low >=60 [facility] Comment on above: Performed By: #### C MP, URIC ####[facility] Qhboxfsabn[address] [place], [place] [address]Dr. Airam Tripathi EGFR-NON AF ISRAELI 28 mL/min/1.73m2 Critically low >=60 [facility] Comment on above: Performed By: #### C MP, URIC ####[facility] Qocfnsiwcv[address] [place], [place] [address]Dr. Airam Tripathi Globulin (S) [Mass/Vol] 3.1 g/dL Normal [facility] Comment on above: Performed By: #### C MP, URIC ####[facility] Pfsdowlqnj[address] [place], [place] [address]Dr. Airam Tripathi Glucose [Mass/Vol] 93 mg/dL Normal 74-106 [facility] Comment on above: Performed By: #### C MP, URIC ####[facility] Hkqcorbirv80[address] [place] [address]Dr. Airam Tripathi Potassium [Moles/Vol] 4.4 mmol/L Normal 3.5-5.1 [facility] Comment on above: Performed By: #### C MP, URIC ####[facility] Gttdupztga[address] [place], [place] [address]Dr. Airam Tripathi Protein [Mass/Vol] 6.3 g/dL Critically low 6.4-8.2 Th [facility] Comment on above: Performed By: #### C MP, URIC ####[facility] Esstxcixum[address] [place] [address]Dr. Airam Tripathi Sodium [Moles/Vol] 130 mmol/L Critically low 136-145 Th [facility] Comment on above: Performed By: #### C MP, URIC ####[facility] Mxpirzfcny2750 [place] [address]Dr. Airam Tripathi Urea nitrogen [Mass/Vol] 49.0 mg/dL Critically high 7.0-18.0 [facility] Comment on above: Performed By: #### C MP, URIC ####[facility] Hzhaqughnb2346 [place] [address]Dr. Airam Tripathi Urea nitrogen/Creatinine [Mass ratio] 26.3 mg/mg Normal [facility] Comment on above: Performed By: #### C MP, URIC ####[facility] Pjdezhyozc[address] [place], [place] [address]Dr. Airam Tripathi URIC ACID SERUMon 04-06-2022 Urate [Mass/Vol] 6.5 mg/dL Critically high 2.6-6.0 [facility] Comment on above: Performed By: #### C MP, URIC ####[facility] Zxhznnsmma[address] [place], [place] [address]Dr. Airam Tripathi VITAMIN D 25 OHon 04-06-2022 VIT D 25-OH 74.5 ng/mL Normal [facility] Comment on above: Performed By: #### F ETIBC, VITAD, FERR ####[facility] Zjseupqnft[address] [place], [place] [address]Dr. Airam Tripathi VIT D RANGES SEE BELOW Normal [facility] Comment on above: Result Comment: <20 ng/mL Vit D deficient 20 - <30 ng/mL Vit D insufficient 30 - 100 ng/mL Vit D sufficient >100 ng/mL Potential Toxicity Performed By: #### F ETIBC, VITAD, FERR ####[facility] Bukytqxrza[address] [place], [place] [address]Dr. Airam Tripathi OSMOLALITYon 04-01-2022 Osmolality [Osmolality] 284 mosm/kg Normal 275-295 [facility] Comment on above: Performed By: #### O SMO ####[facility] Y[address]zd16[address] [place] [phone]. Airam Tripathi CBC AUTO DIFFon 03-31-2022 BASO # 0.0 103/ul Normal 0.0-0.1 [facility] Comment on above: Performed By: #### C BC ####[facility] K[address]lkr[address] [place] [address]Dr. Airam Tripathi Basophils/100 WBC (Bld) 0.3 % Normal 0.2-2.0 [facility] Comment on above: Performed By: #### C BC ####[facility] Tpkepnprhi8267[address] [place], [place] [address]Dr. Airam Tripathi EO # 0.1 103/ul Normal 0.0-0.7 [facility] Comment on above: Performed By: #### C BC ####[facility] Kutnwwoldj7[address] [place], [place] [address]Dr. Airam Deuce Eosinophils/100 WBC (Bld) 2.0 % Normal 0.9-7.0 [facility] Comment on above: Performed By: #### C BC ####[facility] Bhzfrhsobo5[address] [place], [place] [address]Dr. Airam Tripathi Erythrocyte distribution width (RBC) [Ratio] 13.5 % Normal 11.0-15.0 [facility] Comment on above: Performed By: #### C BC ####[facility] Kxdmybgtrp8[address] [place], [place] [address]Dr. Airam Tripathi Hematocrit (Bld) [Volume fraction] 32.5 % Critically low 36.0-48.0 [facility] Comment on above: Performed By: #### C BC ####[facility] Gcderowkxb[address] [place], [place] [address]Dr. Airam Tripathi Hemoglobin (Bld) [Mass/Vol] 10.1 g/dL Critically low 12.0-16.0 [facility] Comment on above: Performed By: #### C BC ####[facility] Uiqpzlaprr[address] [place], [place] [address]Dr. Airam Tripathi IG # 0.03 10e3/ul Normal 0.00-0.03 [facility] Comment on above: Performed By: #### C BC ####[facility] Fcxeeynrjs[address] [place] [address]Dr. Airam Tripathi IG % 0.4 % Normal 0.0-0.5 [facility] Comment on above: Performed By: #### C BC ####[facility] Yiqxjuiszl[address] [place], [place] [address]Dr. Airam Tripathi LYMPH # 1.6 103/ul Normal 1.2-3.8 [facility] Comment on above: Performed By: #### C BC ####[facility] Ztcob[address]hmc[address] [place], [place] [address]Dr. Airam Tripathi Lymphocytes/100 WBC (Bld) 22.6 % Normal 20.5-60.0 [facility] Comment on above: Performed By: #### C BC ####[facility] Idevqchnve[address] [place], [place] [address]Dr. Airam Tripathi MANUAL DIFF REQ NO Normal [facility] Comment on above: Performed By: #### C BC ####[facility] Hcripclpvd[address] [place], [place] [address]Dr. Airam Tripathi MCH (RBC) [Entitic mass] 30.5 pg Normal 26.7-34.0 [facility] Comment on above: Performed By: #### C BC ####[facility] Mgwltncnri[address] [place], [place] [address]Dr. Airam Tripathi MCHC (RBC) [Mass/Vol] 31.1 g/dL Normal 29.9-35.2 [facility] Comment on above: Performed By: #### C BC ####[facility] Xcxenwdueu[address] [place], [place] [address]Dr. Airam Tripathi MCV (RBC) [Entitic vol] 98.2 fL Normal 81.0-99.0 [facility] Comment on above: Performed By: #### C BC ####[facility] [address]mbfeynsuf[address] [place], [place] [address]Dr. Airam Tripathi MONO # 0.5 103/ul Normal 0.3-0.8 [facility] Comment on above: Performed By: #### C BC ####[facility] [address]wsixuwsi[address] [place] [phone]. Airam Tripathi Monocytes/100 WBC (Bld) 7.3 % Normal 1.7-12.0 [facility] Comment on above: Performed By: #### C BC ####[facility] Zlfoooooco7[address] [place] [phone]. Airam Triapthi NEUT # 4.7 103/ul Normal 1.4-6.5 [facility] Comment on above: Performed By: #### C BC ####[facility] Bnlznzrfgd6630 [place] [phone]. Airam Tripathi Neutrophils/100 WBC (Bld) 67.4 % Normal 43.0-75.0 [facility] Comment on above: Performed By: #### C BC ####[facility] Xkpznkulbv4428 [place] [phone]. Airam Tripathi Platelet mean volume (Bld) [Entitic vol] 9.5 fL Normal 9.5-13.5 [facility] Comment on above: Performed By: #### C BC ####[facility] Ofqleealgx2691 [place] [address]Dr. Airam Trpiathi PLT 273 103/ul Normal 150-450 [facility] Comment on above: Performed By: #### C BC ####[facility] Pyvifpqmfh8437 [place] [phone]. Airam Tripathi RBC 3.31 106/ul Critically low 4.20-5.40 [facility] Comment on above: Performed By: #### C BC ####[facility] Aloqzbrubg32[address] [place] [phone]. Airam Tripathi WBC 7.0 103/ul Normal 4.0-11.0 [facility] Comment on above: Performed By: #### C BC ####[facility] Cxbrsrqewd1675 [place] [phone] Selenaneil Tripathi PROF 14(COMP METB)on 022 Albumin [Mass/Vol] 3.4 g/dL Normal 3.4-5.0 [facility] Comment on above: Performed By: #### C MP ####[facility] Domyfvibrz6870 [place] [address]Dr. Airam Tripathi Albumin/Globulin [Mass ratio] 1.1 {ratio} Normal [facility] Comment on above: Performed By: #### C MP ####[facility] Yzmpgbhavx7879 [place] [address]Dr. Airam Tripathi ALP [Catalytic activity/Vol] 107 U/L Normal 46-116 [facility] Comment on above: Performed By: #### C MP ####[facility] Khizjsrizx4533 [place] [address]Dr. Airam Tripathi ALT [Catalytic activity/Vol] 22 U/L Normal 14-59 [facility] Comment on above: Performed By: #### C MP ####[facility] Ykmtjpunml[address] [place], [place] [address]Dr. Airam Tripathi Anion gap [Moles/Vol] 6.8 mmol/L Normal [facility] Comment on above: Performed By: #### C MP ####[facility] [address]zxquhcwo[address] [place], [place] [address]Dr. Airam Tripathi AST [Catalytic activity/Vol] 23 U/L Normal 15-37 [facility] Comment on above: Performed By: #### C MP ####[facility] T[address]xwoxuel[address] [place], [place] [address]Dr. Airam Tripathi Bilirubin [Mass/Vol] 0.2 mg/dL Normal 0.2-1.0 [facility] Comment on above: Performed By: #### C MP ####[facility] Pclbxqfvau[address] [place], [place] [address]Dr. Airam Tripathi Calcium [Mass/Vol] 8.4 mg/dL Critically low 8.5-10.1 Th e [facility] Comment on above: Performed By: #### C MP ####[facility] [address]asbgw[address] [place], [place] [address]Dr. Airam Tripathi Chloride [Moles/Vol] 100 mmol/L Normal 98-107 [facility] Comment on above: Performed By: #### C MP ####[facility] Ynnltdzzns40[address] [place] [phone]. Airam Tripathi CO2 [Moles/Vol] 29.9 mmol/L Normal 21.0-32.0 [facility] Comment on above: Performed By: #### C MP ####[facility] Tvuccgxqnc8578 [place] [phone]. Airam Tripathi Creatinine [Mass/Vol] 1.20 mg/dL Critically high 0.55-1.02 [facility] Comment on above: Performed By: #### C MP ####[facility] Oggxxyhhgo5905 [place] [phone]. Airam Tripathi EGFR-AF ISRAELI 56 mL/min/1.73m2 Critically low >=60 [facility] Comment on above: Performed By: #### C MP ####[facility] Ctkejyuyjd[address] [place], [place] [address]Dr. Airam Tripathi EGFR-NON AF ISRAELI 46 mL/min/1.73m2 Critically low >=60 [facility] Comment on above: Performed By: #### C MP ####[facility] [address]ym[address]je[address] [place] [address]Dr. Airam Tripathi Globulin (S) [Mass/Vol] 3.0 g/dL Normal [facility] Comment on above: Performed By: #### C MP ####[facility] Tjobusdthk49[address] [place] [address]Dr. Airam Tripathi Glucose [Mass/Vol] 57 mg/dL Critically low 74-106 [facility] Comment on above: Performed By: #### C MP ####[facility] Yyxgvoleio[address] [place], [place] [address]Dr. Airam Tripathi Potassium [Moles/Vol] 3.7 mmol/L Normal 3.5-5.1 [facility] Comment on above: Performed By: #### C MP ####[facility] Nuunfhsxbd[address] [place], [place] [address]Dr. Airam Tripathi Protein [Mass/Vol] 6.4 g/dL Normal 6.4-8.2 [facility] Comment on above: Performed By: #### C MP ####[facility] Kctbsadfvo99[address] [place] [address]Dr. Airam Tripathi Sodium [Moles/Vol] 133 mmol/L Critically low 136-145 [facility] Comment on above: Performed By: #### C MP ####[facility] Wjqsxlxggj[address] [place], [place] [address]Dr. iAram Tripathi Urea nitrogen [Mass/Vol] 39.0 mg/dL Critically high 7.0-18.0 [facility] Comment on above: Performed By: #### C MP ####[facility] Nmhaxqwabu38[address] [place], [place] [address]Dr. Airam Tripathi Urea nitrogen/Creatinine [Mass ratio] 32.5 mg/mg Normal [facility] Comment on above: Performed By: #### C MP ####[facility] Pmsxlknmma0967[address] [place], [place] [address]Dr. Airam Tripathi OSMOLALITYon 03-24-2022 Osmolality [Osmolality] 285 mosm/kg Normal 275-295 [facility] Comment on above: Performed By: #### O SMO ####[facility] Raygcykkdo7835[address] [place], [place] [address]Dr. Airam Tripathi CBC AUTO DIFFon 03-22-2022 BASO # 0.0 103/ul Normal 0.0-0.1 [facility] Comment on above: Performed By: #### C BC ####[facility] Bwzuswttas[address] [place], [place] [address]Dr. Airam Deuce Basophils/100 WBC (Bld) 0.4 % Normal 0.2-2.0 [facility] Comment on above: Performed By: #### C BC ####[facility] Gsnnvxfdpn[address] [place], [place] [address]Dr. Airam Deuce EO # 0.2 103/ul Normal 0.0-0.7 [facility] Comment on above: Performed By: #### C BC ####[facility] Ywcfgietbi779[address] [place], [place] [address]Dr. Airam Deuce Eosinophils/100 WBC (Bld) 2.3 % Normal 0.9-7.0 [facility] Comment on above: Performed By: #### C BC ####[facility] Agjyjnxuzo3[address] [place] [address]Dr. Airam Tripathi Erythrocyte distribution width (RBC) [Ratio] 13.9 % Normal 11.0-15.0 [facility] Comment on above: Performed By: #### C BC ####[facility] Aombxhmkgj019[address] [place], [place] [address]Dr. Airam Tripathi Hematocrit (Bld) [Volume fraction] 32.6 % Critically low 36.0-48.0 [facility] Comment on above: Performed By: #### C BC ####[facility] Lnnmdbnbqw6784[address] [place], [place] [address]Dr. Airam Tripathi Hemoglobin (Bld) [Mass/Vol] 10.3 g/dL Critically low 12.0-16.0 [facility] Comment on above: Performed By: #### C BC ####[facility] Sdswnrbjgl004[address] [place], [place] [address]Dr. Airam Tripathi IG # 0.11 10e3/ul Critically high 0.00-0.03 [facility] Comment on above: Performed By: #### C BC ####[facility] Gwtmhyykeq5[address] [place], [place] [address]Dr. Airam Tripathi IG % 1.4 % Critically high 0.0-0.5 [facility] Comment on above: Performed By: #### C BC ####[facility] Jhcahchntl99[address] [place], [place] [address]Dr. Airam Tripathi LYMPH # 1.3 103/ul Normal 1.2-3.8 [facility] Comment on above: Performed By: #### C BC ####[facility] Nhmsowgmsa7[address] [place], [place] [address]Dr. Airam Tripathi Lymphocytes/100 WBC (Bld) 15.9 % Critically low 20.5-60.0 [facility] Comment on above: Performed By: #### C BC ####[facility] Etksecfjnw[address] [place], [place] [address]DrKianna Airam Tripathi MANUAL DIFF REQ NO Normal [facility] Comment on above: Performed By: #### C BC ####[facility] Fztggvfmvl8[address] [place] [phone]. Airam Deuce MCH (RBC) [Entitic mass] 30.7 pg Normal 26.7-34.0 [facility] Comment on above: Performed By: #### C BC ####[facility] Uupuaepwlx5[address] [place] [phone]. Airam Deuce MCHC (RBC) [Mass/Vol] 31.6 g/dL Normal 29.9-35.2 [facility] Comment on above: Performed By: #### C BC ####[facility] Mgcfkekznq15[address] [place], [place] [address]Dr. Selenaneil Tripathi MCV (RBC) [Entitic vol] 97.0 fL Normal 81.0-99.0 [facility] Comment on above: Performed By: #### C BC ####[facility] Tqxslmyaxl5[address] [place], [place] [address]Dr. Airam Tripathi MONO # 0.6 103/ul Normal 0.3-0.8 [facility] Comment on above: Performed By: #### C BC ####[facility] Hjdgxbcdee[address] [place], [place] [address]Dr. Selenaneil Tripathi Monocytes/100 WBC (Bld) 6.9 % Normal 1.7-12.0 [facility] Comment on above: Performed By: #### C BC ####[facility] Eelxeofekk[address] [place], [place] [address]Dr. Airam Tripathi NEUT # 5.9 103/ul Normal 1.4-6.5 [facility] Comment on above: Performed By: #### C BC ####[facility] Wvaevtttbp[address] [place], [place] [address]Dr. Airam Tripathi Neutrophils/100 WBC (Bld) 73.1 % Normal 43.0-75.0 [facility] Comment on above: Performed By: #### C BC ####[facility] Tjdbgprdoz[address] [place], [place] [address]Dr. Airam Tripathi Platelet mean volume (Bld) [Entitic vol] 9.5 fL Normal 9.5-13.5 [facility] Comment on above: Performed By: #### C BC ####[facility] Sjxsapcacw[address] [place] [address]Dr. Selenaneil Deuce PLT 313 103/ul Normal 150-450 [facility] Comment on above: Performed By: #### C BC ####[facility] X[address]up[address]isrx23[address] [place] [phone]. Selenaneil Tripathi RBC 3.36 106/ul Critically low 4.20-5.40 [facility] Comment on above: Performed By: #### C BC ####[facility] Coeoxpwzco45[address] [place] [phone]. Selenaneil Tripathi WBC 8.1 103/ul Normal 4.0-11.0 [facility] Comment on above: Performed By: #### C BC ####[facility] Bdxpfdpqba0571 [place] [address]Dr. Airam Tripathi PROF 14(COMP METB)on 022 Albumin [Mass/Vol] 3.3 g/dL Critically low 3.4-5.0 [facility] Comment on above: Performed By: #### C MP ####[facility] Zjuajkmoef7[address] [place] [address]Dr. Airam Tripathi Albumin/Globulin [Mass ratio] 1.0 {ratio} Normal [facility] Comment on above: Performed By: #### C MP ####[facility] Shibzpwygq2[address] [place] [address]Dr. Airam Tripathi ALP [Catalytic activity/Vol] 113 U/L Normal 46-116 [facility] Comment on above: Performed By: #### C MP ####[facility] Sjgjrowhxs4198 [place] [phone]. Airam Tripathi ALT [Catalytic activity/Vol] 21 U/L Normal 14-59 [facility] Comment on above: Performed By: #### C MP ####[facility] Wbegnxhago2939 [place] [address]Dr. Airam Tripathi Anion gap [Moles/Vol] 12.2 mmol/L Normal [facility] Comment on above: Performed By: #### C MP ####[facility] Akjvbkboxu2[address] [place] [phone]. Airam Tripathi AST [Catalytic activity/Vol] 21 U/L Normal 15-37 [facility] Comment on above: Performed By: #### C MP ####[facility] Qqvyjfpsdw5338 [place] [phone]. Airam Tripathi Bilirubin [Mass/Vol] 0.2 mg/dL Normal 0.2-1.0 [facility] Comment on above: Performed By: #### C MP ####[facility] Kswiyddllc4406 [place] [address]Dr. Airam Tripathi Calcium [Mass/Vol] 8.4 mg/dL Critically low 8.5-10.1 [facility] Comment on above: Performed By: #### C MP ####[facility] Uhhejenyqs[address] [place], [place] [address]Dr. Airam Tripathi Chloride [Moles/Vol] 103 mmol/L Normal 98-107 [facility] Comment on above: Performed By: #### C MP ####[facility] Xmdmfiwacw3[address] [place], [place] [address]Dr. Airam Tripathi CO2 [Moles/Vol] 24.4 mmol/L Normal 21.0-32.0 [facility] Comment on above: Performed By: #### C MP ####[facility] Tuzzlywppp[address] [place], [place] [address]Dr. Airam Tripathi Creatinine [Mass/Vol] 1.11 mg/dL Critically high 0.55-1.02 [facility] Comment on above: Performed By: #### C MP ####[facility] Ohomxhyjtw5[address] [place] [phone]. Airam Deuce EGFR-AF ISRAELI >60 Normal >=60 [facility] Comment on above: Performed By: #### C MP ####[facility] [address]hteqj[address] [place] [phone]. Airam Deuce EGFR-NON AF [place]RA[place]I 50 mL/min/1.73m2 Critically low >=60 [facility] Comment on above: Performed By: #### C MP ####[facility] Yvqbdlzaez9890 [place] [address]Dr. Airam Tripathi Globulin (S) [Mass/Vol] 3.2 g/dL Normal [facility] Comment on above: Performed By: #### C MP ####[facility] Aznsjklhky4910 [place] [address]Dr. Airam Tripathi Glucose [Mass/Vol] 84 mg/dL Normal 74-106 [facility] Comment on above: Performed By: #### C MP ####[facility] Uecsozkmnk01[address] [place], [place] [address]Dr. Airam Tripathi Potassium [Moles/Vol] 4.6 mmol/L Normal 3.5-5.1 [facility] Comment on above: Performed By: #### C MP ####[facility] Cgrpcriwzn[address] [place], [place] [address]Dr. Airam Tripathi Protein [Mass/Vol] 6.5 g/dL Normal 6.4-8.2 [facility] Comment on above: Performed By: #### C MP ####[facility] Owdxatnmlb942[address] [place], [place] [address]Dr. Airam Tripathi Sodium [Moles/Vol] 135 mmol/L Critically low 136-145 [facility] Comment on above: Performed By: #### C MP ####[facility] Azyjfajapt769[address] [place], [place] [address]Dr. Airam Tripathi Urea nitrogen [Mass/Vol] 39.0 mg/dL Critically high 7.0-18.0 [facility] Comment on above: Performed By: #### C MP ####[facility] Xbdnqnxenj9569[address] [place], [place] [address]Dr. Airam Tripathi Urea nitrogen/Creatinine [Mass ratio] 35.1 mg/mg Normal [facility] Comment on above: Performed By: #### C MP ####[facility] Thwopnxnjc83[address] [place], [place] [address]Dr. Airam Tripathi OSMOLALITYon 03-17-2022 Osmolality [Osmolality] 277 mosm/kg Normal 275-295 [facility] Comment on above: Performed By: #### O SMO ####[facility] Xcodtvgclx8963 [place] [phone]. Airam Tripathi CBC AUTO DIFFon 03-15-2022 BASO # 0.0 103/ul Normal 0.0-0.1 [facility] Comment on above: Performed By: #### C BC ####[facility] Kdyrhhjfih2249 [place] [address]Dr. Airam Tripathi Basophils/100 WBC (Bld) 0.4 % Normal 0.2-2.0 [facility] Comment on above: Performed By: #### C BC ####[facility] Fwkdhzxqtq[address] [place], [place] [address]Dr. Airam Tripathi EO # 0.1 103/ul Normal 0.0-0.7 [facility] Comment on above: Performed By: #### C BC ####[facility] Ldrhzyhtur[address] [place], [place] [address]Dr. Airam Deuce Eosinophils/100 WBC (Bld) 2.4 % Normal 0.9-7.0 [facility] Comment on above: Performed By: #### C BC ####[facility] Atzjhfwfix[address] [place], [place] [address]Dr. Airam Tripathi Erythrocyte distribution width (RBC) [Ratio] 13.9 % Normal 11.0-15.0 [facility] Comment on above: Performed By: #### C BC ####[facility] Qatheyegqi27[address] [place], [place] [address]Dr. Airam Tripathi Hematocrit (Bld) [Volume fraction] 31.2 % Critically low 36.0-48.0 [facility] Comment on above: Performed By: #### C BC ####[facility] Bylxqejoox167[address] [place], [place] [address]Dr. Airam Tripathi Hemoglobin (Bld) [Mass/Vol] 9.9 g/dL Critically low 12.0-16.0 [facility] Comment on above: Performed By: #### C BC ####[facility] Meuedvjqxb[address] [place], [place] [address]Dr. Airam Tripathi IG # 0.03 10e3/ul Normal 0.00-0.03 [facility] Comment on above: Performed By: #### C BC ####[facility] Cqxuurvxwp0865 [place] [address]Dr. Selenaneil Tripathi IG % 0.6 % Critically high 0.0-0.5 [facility] Comment on above: Performed By: #### C BC ####[facility] Utofhvnkzj5566 [place] [address]Dr. Selenaneil Tripathi LYMPH # 1.5 103/ul Normal 1.2-3.8 [facility] Comment on above: Performed By: #### C BC ####[facility] Ruoxmbilqo6871 [place] [address]DrKianna Selenaneil Tripathi Lymphocytes/100 WBC (Bld) 29.4 % Normal 20.5-60.0 [facility] Comment on above: Performed By: #### C BC ####[facility] Pxvrfeppsm[address] [place], [place] [address]DrKianna Selenaneil Tripathi MANUAL DIFF REQ NO Normal [facility] Comment on above: Performed By: #### C BC ####[facility] Upbwxgjtpg3935 [place] [address]Dr. Airam Deuce MCH (RBC) [Entitic mass] 30.5 pg Normal 26.7-34.0 [facility] Comment on above: Performed By: #### C BC ####[facility] Xbbhaahanq[address] [place], [place] [address]Dr. Airam Deuce MCHC (RBC) [Mass/Vol] 31.7 g/dL Normal 29.9-35.2 [facility] Comment on above: Performed By: #### C BC ####[facility] [address] [place], [place] [address]DrKianna Selenaneil Tripathi MCV (RBC) [Entitic vol] 96.0 fL Normal 81.0-99.0 [facility] Comment on above: Performed By: #### C BC ####[facility] Seylcozaqe[address] [place], [place] [address]DrKianna Tripathi MONO # 0.4 103/ul Normal 0.3-0.8 [facility] Comment on above: Performed By: #### C BC ####[facility] Jfqltdsvll3391 [place] [phone]. Airam Tripathi Monocytes/100 WBC (Bld) 7.0 % Normal 1.7-12.0 [facility] Comment on above: Performed By: #### C BC ####[facility] Hbqnngvwvs2570 [place] [phone]. Airam Tripathi NEUT # 3.0 103/ul Normal 1.4-6.5 [facility] Comment on above: Performed By: #### C BC ####[facility] Pzajjliwch1636 [place] [phone]. Airam Tripathi Neutrophils/100 WBC (Bld) 60.2 % Normal 43.0-75.0 [facility] Comment on above: Performed By: #### C BC ####[facility] Rnrqvqoxte7906 [place] [address]Dr. Airam Deuce Platelet mean volume (Bld) [Entitic vol] 9.6 fL Normal 9.5-13.5 [facility] Comment on above: Performed By: #### C BC ####[facility] Szujtnmlfc6658 [place] [phone]. Airam Tripathi PLT 258 103/ul Normal 150-450 [facility] Comment on above: Performed By: #### C BC ####[facility] Ajwubtiwuv0752 [place] [phone]. Airam Tripathi RBC 3.25 106/ul Critically low 4.20-5.40 [facility] Comment on above: Performed By: #### C BC ####[facility] Ioghdulota5158 [place] [phone]. Airam Tripathi WBC 5.0 103/ul Normal 4.0-11.0 [facility] Comment on above: Performed By: #### C BC ####[facility] Gfsnsxojcp4995 [place] [phone] Tripathi PROF 14(COMP METB)on 022 Albumin [Mass/Vol] 3.3 g/dL Critically low 3.4-5.0 [facility] Comment on above: Performed By: #### C MP ####[facility] Rpwcyksvls0947 [place] [address]Dr. Airam Tripathi Albumin/Globulin [Mass ratio] 1.1 {ratio} Normal [facility] Comment on above: Performed By: #### C MP ####[facility] Cafvkagqvv6828 [place] [phone]. Airam Tripathi ALP [Catalytic activity/Vol] 106 U/L Normal 46-116 [facility] Comment on above: Performed By: #### C MP ####[facility] Rheoljozmb9050 [place] [address]Dr. Airam Tripathi ALT [Catalytic activity/Vol] 22 U/L Normal 14-59 [facility] Comment on above: Performed By: #### C MP ####[facility] Tdwzurpmjs94[address] [place], [place] [address]Dr. Airam Tripathi Anion gap [Moles/Vol] 11.4 mmol/L Normal [facility] Comment on above: Performed By: #### C MP ####[facility] Bthnkujmob15[address] [place], [place] [address]Dr. Selenaneil Tripathi AST [Catalytic activity/Vol] 22 U/L Normal 15-37 [facility] Comment on above: Performed By: #### C MP ####[facility] Ixcaihkrdn[address] [place], [place] [address]Dr. Airam Tripathi Bilirubin [Mass/Vol] 0.3 mg/dL Normal 0.2-1.0 [facility] Comment on above: Performed By: #### C MP ####[facility] Manuuuhkfx[address] [place], [place] [address]Dr. Airam Tripathi Calcium [Mass/Vol] 8.1 mg/dL Critically low 8.5-10.1 [facility] Comment on above: Performed By: #### C MP ####[facility] Tsczoeizdv92[address] [place], [place] [address]Dr. Airam Tripathi Chloride [Moles/Vol] 100 mmol/L Normal 98-107 [facility] Comment on above: Performed By: #### C MP ####[facility] Gmneutxefp7247 [place] [address]Dr. Airam Tripathi CO2 [Moles/Vol] 25.6 mmol/L Normal 21.0-32.0 [facility] Comment on above: Performed By: #### C MP ####[facility] Knpvkbolwm6993 [place] [phone]. Airam Tripathi Creatinine [Mass/Vol] 1.21 mg/dL Critically high 0.55-1.02 [facility] Comment on above: Performed By: #### C MP ####[facility] Mquymghvrh8960 [place] [address]Dr. Ariam Tripathi EGFR-AF ISRAELI 55 mL/min/1.73m2 Critically low >=60 [facility] Comment on above: Performed By: #### C MP ####[facility] Vevbifrvql[address] [place], [place] [address]Dr. Airam Tripathi EGFR-NON AF ISRA[place]I 45 mL/min/1.73m2 Critically low >=60 [facility] Comment on above: Performed By: #### C MP ####[facility] Ybosfnxnrq2667[address] [place], [place] [address]Dr. Airam Tripathi Globulin (S) [Mass/Vol] 3.0 g/dL Normal [facility] Comment on above: Performed By: #### C MP ####[facility] Tbpctqvrnr4549 [place] [address]Dr. Airam Tripathi Glucose [Mass/Vol] 84 mg/dL Normal 74-106 [facility] Comment on above: Performed By: #### C MP ####[facility] Kyzvakqrtl9618 [place] [phone]. Airam Tripathi Potassium [Moles/Vol] 4.0 mmol/L Normal 3.5-5.1 [facility] Comment on above: Performed By: #### C MP ####[facility] Naxmjludeh24[address] [place], [place] [address]Dr. Airam Tripathi Protein [Mass/Vol] 6.3 g/dL Critically low 6.4-8.2 [facility] Comment on above: Performed By: #### C MP ####[facility] Pabtypromk8106 [place] [address]Dr. Airam Deuce Sodium [Moles/Vol] 133 mmol/L Critically low 136-145 Th [facility] Comment on above: Performed By: #### C MP ####[facility] Qzqzzpsctd88[address] [place], [place] [address]Dr. Airam Deuce Urea nitrogen [Mass/Vol] 29.0 mg/dL Critically high 7.0-18.0 [facility] Comment on above: Performed By: #### C MP ####[facility] Wkkqbvreby[address] [place], [place] [address]Dr. Airam Deuce Urea nitrogen/Creatinine [Mass ratio] 24.0 mg/mg Normal [facility] Comment on above: Performed By: #### C MP ####[facility] Ujbcexzuer[address] [place], [place] [address]Dr. Airam Deuce OSMOLALITYon 03-12-2022 Osmolality [Osmolality] 285 mosm/kg Normal 275-295 [facility] Comment on above: Performed By: #### O SMO ####[facility] Iretftcoiv[address] [place], [place] [address]Dr. Airam Deuce CBC AUTO DIFFon 03-10-2022 BASO # 0.0 103/ul Normal 0.0-0.1 [facility] Comment on above: Performed By: #### C BC ####[facility] Ublunjcpvl1620[address] [place], [place] [address]Dr. Airam Tripathi Basophils/100 WBC (Bld) 0.3 % Normal 0.2-2.0 [facility] Comment on above: Performed By: #### C BC ####[facility] Actuyzozck132[address] [place], [place] [address]Dr. Airam Tripathi EO # 0.2 103/ul Normal 0.0-0.7 [facility] Comment on above: Performed By: #### C BC ####[facility] Xibyycdmyj8[address] [place], [place] [address]Dr. Airam Tripathi Eosinophils/100 WBC (Bld) 2.7 % Normal 0.9-7.0 [facility] Comment on above: Performed By: #### C BC ####[facility] Wusqarfjfc8737 [place] [address]Dr. Airam Tripathi Erythrocyte distribution width (RBC) [Ratio] 14.4 % Normal 11.0-15.0 [facility] Comment on above: Performed By: #### C BC ####[facility] Hblpafmxto[address] [place], [place] [address]Dr. Airam Tripathi Hematocrit (Bld) [Volume fraction] 32.5 % Critically low 36.0-48.0 [facility] Comment on above: Performed By: #### C BC ####[facility] [address]qszoszrb[address] [place], [place] [address]Dr. Airam Tripathi Hemoglobin (Bld) [Mass/Vol] 10.1 g/dL Critically low 12.0-16.0 [facility] Comment on above: Performed By: #### C BC ####[facility] [id number] [place], [place] [address]Dr. Airam Tripathi IG # 0.03 10e3/ul Normal 0.00-0.03 [facility] Comment on above: Performed By: #### C BC ####[facility] Xjtnkeozco845[address] [place], [place] [address]Dr. Airam Tripathi IG % 0.4 % Normal 0.0-0.5 [facility] Comment on above: Performed By: #### C BC ####[facility] Xduhlcbamp4707[address] [place], [place] [address]Dr. Airam Tripathi LYMPH # 1.4 103/ul Normal 1.2-3.8 [facility] Comment on above: Performed By: #### C BC ####[facility] Wnreapuyix586[address] [place], [place] [address]Dr. Airam Tripathi Lymphocytes/100 WBC (Bld) 19.4 % Critically low 20.5-60.0 [facility] Comment on above: Performed By: #### C BC ####[facility] Egtxzkbhzm340[address] [place], [place] [address]Dr. Airam Tripathi MANUAL DIFF REQ NO Normal [facility] Comment on above: Performed By: #### C BC ####[facility] Qnwndccoab4372 [place] [phone]. Airam Deuce MCH (RBC) [Entitic mass] 30.6 pg Normal 26.7-34.0 [facility] Comment on above: Performed By: #### C BC ####[facility] Xtvcemuqqg0049 [place] [address]Dr. Airam Tripathi MCHC (RBC) [Mass/Vol] 31.1 g/dL Normal 29.9-35.2 [facility] Comment on above: Performed By: #### C BC ####[facility] Xahewxlprf2364[address] [place], [place] [address]Dr. Airam Tripathi MCV (RBC) [Entitic vol] 98.5 fL Normal 81.0-99.0 [facility] Comment on above: Performed By: #### C BC ####[facility] Nttzmsffrx437[address] [place], [place] [address]Dr. Airam Tripathi MONO # 0.5 103/ul Normal 0.3-0.8 [facility] Comment on above: Performed By: #### C BC ####[facility] Vwrwxxoziw735[address] [place], [place] [address]Dr. Airam Tripathi Monocytes/100 WBC (Bld) 6.7 % Normal 1.7-12.0 [facility] Comment on above: Performed By: #### C BC ####[facility] Cdqhorvblv1137[address] [place], [place] [address]Dr. Airam Tripathi NEUT # 5.2 103/ul Normal 1.4-6.5 [facility] Comment on above: Performed By: #### C BC ####[facility] Fwlokhtgph4129[address] [place], [place] [address]DrKianna Tripathi Neutrophils/100 WBC (Bld) 70.5 % Normal 43.0-75.0 [facility] Comment on above: Performed By: #### C BC ####[facility] Jxahnzfivi5320[address] [place], [place] [address]DrKianna Tripathi Platelet mean volume (Bld) [Entitic vol] 9.8 fL Normal 9.5-13.5 [facility] Comment on above: Performed By: #### C BC ####[facility] Wiipdwugxa3905 [place] [address]Dr. Airam Tripathi PLT 277 103/ul Normal 150-450 [facility] Comment on above: Performed By: #### C BC ####[facility] Ljmkykqgad2434 [place] [phone]. Airam Tripathi RBC 3.30 106/ul Critically low 4.20-5.40 [facility] Comment on above: Performed By: #### C BC ####[facility] Ssojfoxzkf7086 [place] [phone]. Airam Tripathi WBC 7.4 103/ul Normal 4.0-11.0 [facility] Comment on above: Performed By: #### C BC ####[facility] Yfkqgtsnlh5089 [place] [address]Dr. Airam Tripathi PROF 14(COMP METB)on 022 Albumin [Mass/Vol] 3.6 g/dL Normal 3.4-5.0 [facility] Comment on above: Performed By: #### C MP ####[facility] Ssebdbmfly6670 [place] [address]Dr. Airam Tripathi Albumin/Globulin [Mass ratio] 1.1 {ratio} Normal [facility] Comment on above: Performed By: #### C MP ####[facility] Iodiiowxsv5212 [place] [address]Dr. Airam Tripathi ALP [Catalytic activity/Vol] 112 U/L Normal 46-116 [facility] Comment on above: Performed By: #### C MP ####[facility] Qxsjefrxut6560 [place] [phone]. Airam Tripathi ALT [Catalytic activity/Vol] 26 U/L Normal 14-59 [facility] Comment on above: Performed By: #### C MP ####[facility] Mxonbpewfw3707 [place] [address]DrKianna Tripathi Anion gap [Moles/Vol] 12.0 mmol/L Normal [facility] Comment on above: Performed By: #### C MP ####[facility] Dwhqmhzvse2831 [place] [phone]. Airam Tripathi AST [Catalytic activity/Vol] 25 U/L Normal 15-37 [facility] Comment on above: Performed By: #### C MP ####[facility] Sdbgxirswb9862 [place] [phone]. Airam Tripathi Bilirubin [Mass/Vol] 0.4 mg/dL Normal 0.2-1.0 [facility] Comment on above: Performed By: #### C MP ####[facility] Whhgbbxvgo8946 [place] [address]Dr. Airam Tripathi Calcium [Mass/Vol] 8.9 mg/dL Normal 8.5-10.1 [facility] Comment on above: Performed By: #### C MP ####[facility] Lykugnrvtf8640[address] [place], [place] [address]Dr. Airam Tripathi Chloride [Moles/Vol] 101 mmol/L Normal 98-107 [facility] Comment on above: Performed By: #### C MP ####[facility] Eyszalmflj8[address] [place], [place] [address]Dr. Airam Tripathi CO2 [Moles/Vol] 24.0 mmol/L Normal 21.0-32.0 [facility] Comment on above: Performed By: #### C MP ####[facility] Ytmxggerae[address] [place], [place] [address]Dr. Airam Tripathi Creatinine [Mass/Vol] 1.51 mg/dL Critically high 0.55-1.02 [facility] Comment on above: Performed By: #### C MP ####[facility] Gfindfpntg5299 [place] [phone]. Airam Deuce EGFR-AF ISRAELI 43 mL/min/1.73m2 Critically low >=60 [facility] Comment on above: Performed By: #### C MP ####[facility] Bwedujipbs3109 [place] [phone]. Selenaneil Deuce EGFR-NON AF ISRAELI 35 mL/min/1.73m2 Critically low >=60 [facility] Comment on above: Performed By: #### C MP ####[facility] Iyguxexvin2401 [place] [address]Dr. Airam Deuce Globulin (S) [Mass/Vol] 3.2 g/dL Normal [facility] Comment on above: Performed By: #### C MP ####[facility] Nglutzqusi1390 [place] [address]Dr. Airam Deuce Glucose [Mass/Vol] 82 mg/dL Normal 74-106 [facility] Comment on above: Performed By: #### C MP ####[facility] Ntzusosesh9462 [place] [address]Dr. Airam Tripathi Potassium [Moles/Vol] 4.0 mmol/L Normal 3.5-5.1 [facility] Comment on above: Performed By: #### C MP ####[facility] Cdlzsfdrcf10[address] [place], [place] [address]Dr. Airam Tripathi Protein [Mass/Vol] 6.8 g/dL Normal 6.4-8.2 [facility] Comment on above: Performed By: #### C MP ####[facility] Cvkftajyxx1759[address] [place], [place] [address]Dr. Airam Deuce Sodium [Moles/Vol] 133 mmol/L Critically low 136-145 [facility] Comment on above: Performed By: #### C MP ####[facility] Micalcmxiw458645 [address] [place], [place] [address]Dr. Selenaneil Deuce Urea nitrogen [Mass/Vol] 37.0 mg/dL Critically high 7.0-18.0 [facility] Comment on above: Performed By: #### C MP ####[facility] Icdhwtgdso9911[address] [place], [place] [address]Dr. Airam Tripathi Urea nitrogen/Creatinine [Mass ratio] 24.5 mg/mg Normal [facility] Comment on above: Performed By: #### C MP ####[facility] Xchxbegbbc7029[address] [place], [place] [address]Dr. Airam Tripathi OSMOLALITYon 03-07-2022 Osmolality [Osmolality] 284 mosm/kg Normal 275-295 [facility] Comment on above: Performed By: #### O SMO ####[facility] Bpscxizlve4396 [place] [address]Dr. Airam Tripathi CBC AUTO DIFFon 03-04-2022 BASO # 0.0 103/ul Normal 0.0-0.1 [facility] Comment on above: Performed By: #### C BC ####[facility] Hviqycqsao8601[address] [place], [place] [address]Dr. Airam Tripathi Basophils/100 WBC (Bld) 0.3 % Normal 0.2-2.0 [facility] Comment on above: Performed By: #### C BC ####[facility] Edaylbrgmz9005[address] [place], [place] [address]Dr. Airam Tripathi EO # 0.1 103/ul Normal 0.0-0.7 [facility] Comment on above: Performed By: #### C BC ####[facility] Ytsaorjefs4917[address] [place], [place] [address]Dr. Airam Tripathi Eosinophils/100 WBC (Bld) 2.0 % Normal 0.9-7.0 [facility] Comment on above: Performed By: #### C BC ####[facility] Qthbuascoh3810[address] [place], [place] [address]Dr. Selenaneil Tripathi Erythrocyte distribution width (RBC) [Ratio] 14.5 % Normal 11.0-15.0 [facility] Comment on above: Performed By: #### C BC ####[facility] Laykxjmsnz1623[address] [place], [place] [address]Dr. Airam Tripathi Hematocrit (Bld) [Volume fraction] 35.4 % Critically low 36.0-48.0 [facility] Comment on above: Performed By: #### C BC ####[facility] Vezfnablic094[address] [place], [place] [address]Dr. Airam Tripathi Hemoglobin (Bld) [Mass/Vol] 11.0 g/dL Critically low 12.0-16.0 [facility] Comment on above: Performed By: #### C BC ####[facility] Ecmqfipsud9029[address] [place], [place] [address]Dr. Airam Tripathi IG # 0.03 10e3/ul Normal 0.00-0.03 [facility] Comment on above: Performed By: #### C BC ####[facility] Qnaplysvwx2324 [place] [address]DrKianna Airam Tripathi IG % 0.4 % Normal 0.0-0.5 [facility] Comment on above: Performed By: #### C BC ####[facility] Qviwlilwwk187[address] [place], [place] [address]DrKianna Airam Tripathi LYMPH # 1.7 103/ul Normal 1.2-3.8 [facility] Comment on above: Performed By: #### C BC ####[facility] Xrtjeewhqc848345 [address] [place], [place] [address]DrKianna Airam Tripathi Lymphocytes/100 WBC (Bld) 23.8 % Normal 20.5-60.0 [facility] Comment on above: Performed By: #### C BC ####[facility] Qnjkgpixoz1147[address] [place], [place] [address]DrKianna Airam Tripathi MANUAL DIFF REQ NO Normal [facility] Comment on above: Performed By: #### C BC ####[facility] Cgawdgfvcj19[address] [place], [place] [address]DrKianna Airam Tripathi MCH (RBC) [Entitic mass] 30.0 pg Normal 26.7-34.0 [facility] Comment on above: Performed By: #### C BC ####[facility] Gyypgutysk64[address] [place], [place] [address]DrKianna Airam Tripathi MCHC (RBC) [Mass/Vol] 31.1 g/dL Normal 29.9-35.2 [facility] Comment on above: Performed By: #### C BC ####[facility] Nyummmdtie[address] [place], [place] [address]DrKianna Airam Tripathi MCV (RBC) [Entitic vol] 96.5 fL Normal 81.0-99.0 [facility] Comment on above: Performed By: #### C BC ####[facility] Yukwkfrgkg1907[address] [place], [place] [address]DrKianna Airam Deuce MONO # 0.5 103/ul Normal 0.3-0.8 [facility] Comment on above: Performed By: #### C BC ####[facility] Glzpospiqy2879 [place] [address]Dr. Airam Tripathi Monocytes/100 WBC (Bld) 6.6 % Normal 1.7-12.0 [facility] Comment on above: Performed By: #### C BC ####[facility] Gdrzjnzxiu3530 [place] [phone]. Airam Tripathi NEUT # 4.7 103/ul Normal 1.4-6.5 [facility] Comment on above: Performed By: #### C BC ####[facility] Gudrdkkirb7761 [place] [address]Dr. Airam Tripathi Neutrophils/100 WBC (Bld) 66.9 % Normal 43.0-75.0 [facility] Comment on above: Performed By: #### C BC ####[facility] Tfctkfcngv0568 [place] [address]Dr. Airam Tripathi Platelet mean volume (Bld) [Entitic vol] 10.2 fL Normal 9.5-13.5 [facility] Comment on above: Performed By: #### C BC ####[facility] Ztomlzfsqg0718 [place] [address]Dr. Airam Tripathi PLT 270 103/ul Normal 150-450 [facility] Comment on above: Performed By: #### C BC ####[facility] Dzrxyslcdm7059 [place] [address]Dr. Airam Tripathi RBC 3.67 106/ul Critically low 4.20-5.40 [facility] Comment on above: Performed By: #### C BC ####[facility] Phftphaswh6274 [place] [phone]. Airam Tripathi WBC 7.0 103/ul Normal 4.0-11.0 [facility] Comment on above: Performed By: #### C BC ####[facility] Yrlbroopau2998 [place] [address]Dr. Selenaneil Tripathi PROF 14(COMP METB)on 022 Albumin [Mass/Vol] 3.3 g/dL Critically low 3.4-5.0 [facility] Comment on above: Performed By: #### C MP ####[facility] Lpnsivjadt8156 [place] [address]Dr. Airam Tripathi Albumin/Globulin [Mass ratio] 1.0 {ratio} Normal [facility] Comment on above: Performed By: #### C MP ####[facility] Fyayoifgmb150[address] [place], [place] [address]Dr. Airam Tripathi ALP [Catalytic activity/Vol] 107 U/L Normal 46-116 [facility] Comment on above: Performed By: #### C MP ####[facility] Patgrfuist030[address] [place], [place] [address]Dr. Airam Tripathi ALT [Catalytic activity/Vol] 23 U/L Normal 14-59 [facility] Comment on above: Performed By: #### C MP ####[facility] Hvapsspreo[address] [place], [place] [address]Dr. Airam Tripathi Anion gap [Moles/Vol] 13.0 mmol/L Normal [facility] Comment on above: Performed By: #### C MP ####[facility] Hftucepxpm6439[address] [place], [place] [address]Dr. Airam Tripathi AST [Catalytic activity/Vol] 30 U/L Normal 15-37 [facility] Comment on above: Performed By: #### C MP ####[facility] Dyoihjatwh207[address] [place], [place] [address]Dr. Airam Tripathi Bilirubin [Mass/Vol] 0.2 mg/dL Normal 0.2-1.0 [facility] Comment on above: Performed By: #### C MP ####[facility] Fnyafmfdpe9[address] [place], [place] [address]Dr. Airam Tripathi Calcium [Mass/Vol] 8.8 mg/dL Normal 8.5-10.1 [facility] Comment on above: Performed By: #### C MP ####[facility] Krfgmwwfgt6265[address] [place], [place] [address]Dr. Airam Tripathi Chloride [Moles/Vol] 103 mmol/L Normal 98-107 [facility] Comment on above: Performed By: #### C MP ####[facility] Taezjjgchx8872 [place] [phone]. Airam Tripathi CO2 [Moles/Vol] 24.9 mmol/L Normal 21.0-32.0 [facility] Comment on above: Performed By: #### C MP ####[facility] Nbjpzlfudp3774 [place] [phone]. Airam Tripathi Creatinine [Mass/Vol] 1.06 mg/dL Critically high 0.55-1.02 [facility] Comment on above: Performed By: #### C MP ####[facility] Xuqehasplk8293 [place] [phone]. Airam Tripathi EGFR-AF ISRAELI >60 Normal >=60 [facility] Comment on above: Performed By: #### C MP ####[facility] Yhlzobpihk5138 [place] [address]Dr. Airam Deuce EGFR-NON AF ISRAELI 53 mL/min/1.73m2 Critically low >=60 [facility] Comment on above: Performed By: #### C MP ####[facility] Qfbxwpjidf6764 [place] [address]Dr. Airam Tripathi Globulin (S) [Mass/Vol] 3.2 g/dL Normal [facility] Comment on above: Performed By: #### C MP ####[facility] Iozvpewebz0597 [place] [address]Dr. Airam Tripathi Glucose [Mass/Vol] 91 mg/dL Normal 74-106 [facility] Comment on above: Performed By: #### C MP ####[facility] Tsealgodqr7237 [place] [phone]. Airam Tripathi Potassium [Moles/Vol] 3.9 mmol/L Normal 3.5-5.1 [facility] Comment on above: Performed By: #### C MP ####[facility] Yukcjihznr4526 [place] [phone]. Airam Tripathi Protein [Mass/Vol] 6.5 g/dL Normal 6.4-8.2 [facility] Comment on above: Performed By: #### C MP ####[facility] Refwtqmiso4081 [place] [address]Dr. Airam Tripathi Sodium [Moles/Vol] 137 mmol/L Normal 136-145 [facility] Comment on above: Performed By: #### C MP ####[facility] Qyxblnotfx3798[address] [place], [place] [address]Dr. Airam Deuce Urea nitrogen [Mass/Vol] 27.0 mg/dL Critically high 7.0-18.0 [facility] Comment on above: Performed By: #### C MP ####[facility] Ssqwauiuxa589[address] [place], [place] [address]Dr. Airam Deuce Urea nitrogen/Creatinine [Mass ratio] 25.5 mg/mg Normal [facility] Comment on above: Performed By: #### C MP ####[facility] Neqhjhsvlx4288[address] [place], [place] [address]Dr. Airam Deuce OSMOLALITYon 03-03-2022 Osmolality [Osmolality] 383 mosm/kg Invalid Interpretation Code [id number] [facility] Comment on above: Result Comment: Ve rified by repeat analysis Performed By: #### O SMO ####[facility] Idughvhdmu167[address] [place], [place] [address]Dr. Airam Deuce CBC AUTO DIFFon 02-22-2022 BASO # 0.0 103/ul Normal 0.0-0.1 [facility] Comment on above: Performed By: #### C BC ####[facility] Uedgsbbjok717[address] [place], [place] [address]Dr. Airam Tripathi Basophils/100 WBC (Bld) 0.4 % Normal 0.2-2.0 [facility] Comment on above: Performed By: #### C BC ####[facility] Jgzcudjdqi256[address] [place], [place] [address]Dr. Airam Tripathi EO # 0.2 103/ul Normal 0.0-0.7 [facility] Comment on above: Performed By: #### C BC ####[facility] Nlmyxnvuyy3228[address] [place], [place] [address]Dr. Airam Tripathi Eosinophils/100 WBC (Bld) 3.9 % Normal 0.9-7.0 [facility] Comment on above: Performed By: #### C BC ####[facility] Bacwfqeqvh0537[address] [place], [place] [address]Dr. Selenaneil Tripathi Erythrocyte distribution width (RBC) [Ratio] 13.9 % Normal 11.0-15.0 [facility] Comment on above: Performed By: #### C BC ####[facility] Dozumizqkg317[address] [place], [place] [address]Dr. Airam Tripathi Hematocrit (Bld) [Volume fraction] 32.7 % Critically low 36.0-48.0 [facility] Comment on above: Performed By: #### C BC ####[facility] Acfgcqhfdp8508[address] [place], [place] [address]Dr. Airam Tripathi Hemoglobin (Bld) [Mass/Vol] 10.7 g/dL Critically low 12.0-16.0 [facility] Comment on above: Performed By: #### C BC ####[facility] Wyhxowegxq0650[address] [place], [place] [address]Dr. Airam Tripathi IG # 0.02 10e3/ul Normal 0.00-0.03 [facility] Comment on above: Performed By: #### C BC ####[facility] Asicmfvfyt3485[address] [place], [place] [address]Dr. Airam Tripathi IG % 0.4 % Normal 0.0-0.5 [facility] Comment on above: Performed By: #### C BC ####[facility] Nqxncxkfne05[address] [place], [place] [address]Dr. Airam Tripathi LYMPH # 1.2 103/ul Normal 1.2-3.8 [facility] Comment on above: Performed By: #### C BC ####[facility] Wrbyisxogc0340[address] [place], [place] [address]Dr. Airam Tripathi Lymphocytes/100 WBC (Bld) 25.0 % Normal 20.5-60.0 [facility] Comment on above: Performed By: #### C BC ####[facility] Yvtacmberu6239[address] [place], [place] [address]Dr. Airam Tripathi MANUAL DIFF REQ NO Normal [facility] Comment on above: Performed By: #### C BC ####[facility] Jehjjysdup0277 [place] [address]DrKianna Selenaneil Tripathi MCH (RBC) [Entitic mass] 30.7 pg Normal 26.7-34.0 [facility] Comment on above: Performed By: #### C BC ####[facility] Azaedwloos0624 [place] [address]DrKianna Tripathi MCHC (RBC) [Mass/Vol] 32.7 g/dL Normal 29.9-35.2 [facility] Comment on above: Performed By: #### C BC ####[facility] Dkxlmlsmux9140[address] [place], [place] [address]DrKianna Tripathi MCV (RBC) [Entitic vol] 93.7 fL Normal 81.0-99.0 [facility] Comment on above: Performed By: #### C BC ####[facility] Lywjhuftrf360[address] [place], [place] [address]DrKianna Tripathi MONO # 0.4 103/ul Normal 0.3-0.8 [facility] Comment on above: Performed By: #### C BC ####[facility] Jjtcmzyycn8197[address] [place], [place] [address]DrKianna Tripathi Monocytes/100 WBC (Bld) 7.5 % Normal 1.7-12.0 [facility] Comment on above: Performed By: #### C BC ####[facility] Unuhgwasst[address] [place], [place] [address]DrKianna Tripathi NEUT # 3.1 103/ul Normal 1.4-6.5 [facility] Comment on above: Performed By: #### C BC ####[facility] Vajzfqvhkg67[address] [place], [place] [address]DrKianna Tripathi Neutrophils/100 WBC (Bld) 62.8 % Normal 43.0-75.0 [facility] Comment on above: Performed By: #### C BC ####[facility] Lbrevlnxmm50[address] [place], [place] [address]DrKianna Tripathi Platelet mean volume (Bld) [Entitic vol] 9.5 fL Normal 9.5-13.5 [facility] Comment on above: Performed By: #### C BC ####[facility] Kcxsrrlsne4711 [place] [address]Dr. Selenaneil Deuce PLT 250 103/ul Normal 150-450 [facility] Comment on above: Performed By: #### C BC ####[facility] Cslnqrowcm0318 [place] [address]Dr. Selenaneil Deuce RBC 3.49 106/ul Critically low 4.20-5.40 [facility] Comment on above: Performed By: #### C BC ####[facility] Rglwvppdao6[address] [place] [address]Dr. Airam Tripathi WBC 4.9 103/ul Normal 4.0-11.0 [facility] Comment on above: Performed By: #### C BC ####[facility] Gicodwdbgp2203 [place] [address]DrKianna Tripathi PROF 14(COMP METB)on 022 Albumin [Mass/Vol] 3.3 g/dL Critically low 3.4-5.0 [facility] Comment on above: Performed By: #### C MP ####[facility] Krmtlbsz[address] [place], [place] [address]DrKianna Tripathi Albumin/Globulin [Mass ratio] 1.0 {ratio} Normal [facility] Comment on above: Performed By: #### C MP ####[facility] Piwgkssxhg8269 [place] [address]Dr. Airam Tripathi ALP [Catalytic activity/Vol] 127 U/L Critically high 46-116 [facility] Comment on above: Performed By: #### C MP ####[facility] Tebhapwxdi5[address] [place], [place] [address]DrKianna Tripathi ALT [Catalytic activity/Vol] 22 U/L Normal 14-59 [facility] Comment on above: Performed By: #### C MP ####[facility] Ajatfqnstg5[address] [place], [place] [address]DrKianna Tripathi Anion gap [Moles/Vol] 11.9 mmol/L Normal e [facility] Comment on above: Performed By: #### C MP ####[facility] Kpztpqhcyp8[address] [place] [address]Dr. Airam Tripathi AST [Catalytic activity/Vol] 21 U/L Normal 15-37 [facility] Comment on above: Performed By: #### C MP ####[facility] Dmukddygrd6503 [place] [id number]. Airam Tripathi Bilirubin [Mass/Vol] 0.3 mg/dL Normal 0.2-1.0 [facility] Comment on above: Performed By: #### C MP ####[facility] Alteyvjdwm05[address] [place] [address]Dr. Airam Tripathi Calcium [Mass/Vol] 8.6 mg/dL Normal 8.5-10.1 [facility] Comment on above: Performed By: #### C MP ####[facility] Vyaamkdoan[address] [place], [place] [address]Dr. Airam Tripathi Chloride [Moles/Vol] 105 mmol/L Normal 98-107 [facility] Comment on above: Performed By: #### C MP ####[facility] Jjhfxdjkdx049[address] [place], [place] [address]Dr. Airam Tripathi CO2 [Moles/Vol] 23.6 mmol/L Normal 21.0-32.0 [facility] Comment on above: Performed By: #### C MP ####[facility] Aurwfjbunm99[address] [place], [place] [address]Dr. Airam Tripathi Creatinine [Mass/Vol] 1.29 mg/dL Critically high 0.55-1.02 [facility] Comment on above: Performed By: #### C MP ####[facility] Emihujlolp2532 [place] [phone]. Selenaneil Deuce EGFR-AF ISRAELI 51 mL/min/1.73m2 Critically low >=60 [facility] Comment on above: Performed By: #### C MP ####[facility] Tefdaxzjci[address] [place], [place] [id number]. Airam Tripathi EGFR-NON AF ISRAELI 42 mL/min/1.73m2 Critically low >=60 [facility] Comment on above: Performed By: #### C MP ####[facility] Osyhbdekww4313 [place] [address]Dr. Airam Tripathi Globulin (S) [Mass/Vol] 3.2 g/dL Normal [facility] Comment on above: Performed By: #### C MP ####[facility] Rmnuadohzm2086 [place] [address]Dr. Airam Tripathi Glucose [Mass/Vol] 94 mg/dL Normal 74-106 [facility] Comment on above: Performed By: #### C MP ####[facility] Zxltrrcccr0665 [place] [address]Dr. Airam Tripathi Potassium [Moles/Vol] 3.5 mmol/L Normal 3.5-5.1 [facility] Comment on above: Performed By: #### C MP ####[facility] Lgtxmuiknp3570[address] [place], [place] [address]Dr. Airam Tripathi Protein [Mass/Vol] 6.5 g/dL Normal 6.4-8.2 [facility] Comment on above: Performed By: #### C MP ####[facility] Hqnthppelj926[address] [place], [place] [address]Dr. Airam Tripathi Sodium [Moles/Vol] 137 mmol/L Normal 136-145 [facility] Comment on above: Performed By: #### C MP ####[facility] Vzpncdtioa625[address] [place], [place] [address]Dr. Airam Tripathi Urea nitrogen [Mass/Vol] 37.0 mg/dL Critically high 7.0-18.0 [facility] Comment on above: Performed By: #### C MP ####[facility] Bolprdlrje305[address] [place], [place] [address]Dr. Airam Tripathi Urea nitrogen/Creatinine [Mass ratio] 28.7 mg/mg Normal [facility] Comment on above: Performed By: #### C MP ####[facility] Mbiinmfhuu6027 [place] [address]Dr. Airam Tripathi OSMOLALITYon 02-20-2022 Osmolality [Osmolality] 283 mosm/kg Normal 275-295 [facility] Comment on above: Performed By: #### O SMO ####[facility] Azkaejqggv5040 [place] [address]Dr. Airam Tripathi CBC AUTO DIFFon 02-17-2022 BASO # 0.0 103/ul Normal 0.0-0.1 [facility] Comment on above: Performed By: #### C BC ####[facility] Ntiusjigci9[address] [place], [place] [address]Dr. Airam Tripathi Basophils/100 WBC (Bld) 0.3 % Normal 0.2-2.0 [facility] Comment on above: Performed By: #### C BC ####[facility] Ywfbsatbgk301[address] [place], [place] [address]DrKianna Tripathi EO # 0.1 103/ul Normal 0.0-0.7 [facility] Comment on above: Performed By: #### C BC ####[facility] Ahqffbmwbm[address] [place], [place] [address]Dr. Airam Tripathi Eosinophils/100 WBC (Bld) 1.6 % Normal 0.9-7.0 [facility] Comment on above: Performed By: #### C BC ####[facility] Vhrloozekj01[address] [place], [place] [address]Dr. Airam Tripathi Erythrocyte distribution width (RBC) [Ratio] 13.4 % Normal 11.0-15.0 [facility] Comment on above: Performed By: #### C BC ####[facility] Addzmyulof3[address] [place], [place] [address]Dr. Airam Tripathi Hematocrit (Bld) [Volume fraction] 31.4 % Critically low 36.0-48.0 [facility] Comment on above: Performed By: #### C BC ####[facility] Ceowjzqieq23[address] [place], [place] [address]Dr. Airam Tripathi Hemoglobin (Bld) [Mass/Vol] 10.0 g/dL Critically low 12.0-16.0 [facility] Comment on above: Performed By: #### C BC ####[facility] Ijdgslkcfh740[address] [place], [place] [address]Dr. Airam Tripathi IG # 0.03 10e3/ul Normal 0.00-0.03 [facility] Comment on above: Performed By: #### C BC ####[facility] Oivvxqeukz6610 [place] [address]Dr. Airam Tripathi IG % 0.4 % Normal 0.0-0.5 [facility] Comment on above: Performed By: #### C BC ####[facility] Uzchrskome3318 [place] [address]DrKianna Airam Deuce LYMPH # 1.6 103/ul Normal 1.2-3.8 [facility] Comment on above: Performed By: #### C BC ####[facility] Fbdumlccab1452 [place] [address]DrKianna Airam Deuce Lymphocytes/100 WBC (Bld) 24.5 % Normal 20.5-60.0 [facility] Comment on above: Performed By: #### C BC ####[facility] Vcofemnoah[address] [place], [place] [address]DrKianna Airam Deuce MANUAL DIFF REQ NO Normal [facility] Comment on above: Performed By: #### C BC ####[facility] Pgpgxzhkhl[address] [place], [place] [address]DrKianna Airam Deuce MCH (RBC) [Entitic mass] 30.2 pg Normal 26.7-34.0 [facility] Comment on above: Performed By: #### C BC ####[facility] Ybkkatgcvm8809 [place] [address]DrKianna Airam Deuce MCHC (RBC) [Mass/Vol] 31.8 g/dL Normal 29.9-35.2 [facility] Comment on above: Performed By: #### C BC ####[facility] Ctrhfpcwqf1211 [place] [address]DrKianna Selenaneil Tripathi MCV (RBC) [Entitic vol] 94.9 fL Normal 81.0-99.0 [facility] Comment on above: Performed By: #### C BC ####[facility] Hwjvyituqv6[address] [place], [place] [address]DrKianna Tripathi MONO # 0.4 103/ul Normal 0.3-0.8 [facility] Comment on above: Performed By: #### C BC ####[facility] Praniqsfxz9944 [place] [address]DrKianna Airam Tripathi Monocytes/100 WBC (Bld) 5.8 % Normal 1.7-12.0 [facility] Comment on above: Performed By: #### C BC ####[facility] Jwhaegocog3046 [place] [address]Dr. Airam Tripathi NEUT # 4.5 103/ul Normal 1.4-6.5 [facility] Comment on above: Performed By: #### C BC ####[facility] Vglofcfktj2406 [place] [address]DrKianna Airam Tripathi Neutrophils/100 WBC (Bld) 67.4 % Normal 43.0-75.0 [facility] Comment on above: Performed By: #### C BC ####[facility] Yyminoptas[address] [place], [place] [address]DrKianna Airam Tripathi Platelet mean volume (Bld) [Entitic vol] 9.6 fL Normal 9.5-13.5 [facility] Comment on above: Performed By: #### C BC ####[facility] Bspomvzwen025[address] [place], [place] [address]Dr. Airam Tripathi PLT 251 103/ul Normal 150-450 [facility] Comment on above: Performed By: #### C BC ####[facility] Qwlsnyishd5090 [place] [address]DrKianna Waltersneil Tripathi RBC 3.31 106/ul Critically low 4.20-5.40 [facility] Comment on above: Performed By: #### C BC ####[facility] Zebetjmbcm8320 [place] [address]DrKianna Airam Tripathi WBC 6.7 103/ul Normal 4.0-11.0 [facility] Comment on above: Performed By: #### C BC ####[facility] Fadoxxykgz7686 [place] [address]DrKianna Tripathi PROF 14(COMP METB)on 08-25-2 022 Albumin [Mass/Vol] 3.5 g/dL Normal 3.4-5.0 [facility] Comment on above: Performed By: #### C MP ####[facility] Mqxagtelzr5724 [place] [address]Dr. Airam Tripathi Albumin/Globulin [Mass ratio] 1.2 {ratio} Normal [facility] Comment on above: Performed By: #### C MP ####[facility] Oifzhohdar1480 [place] [address]Dr. Airam Tripathi ALP [Catalytic activity/Vol] 130 U/L Critically high 46-116 [facility] Comment on above: Performed By: #### C MP ####[facility] Keqirnmkyq90[address] [place], [place] [address]Dr. Airam Tripathi ALT [Catalytic activity/Vol] 18 U/L Normal 14-59 [facility] Comment on above: Performed By: #### C MP ####[facility] Nmwpuzrgvj24[address] [place], [place] [address]Dr. Airam Tripathi Anion gap [Moles/Vol] 14.0 mmol/L Normal [facility] Comment on above: Performed By: #### C MP ####[facility] Zqsdkbhvsb[address] [place], [place] [address]Dr. Airam Tripathi AST [Catalytic activity/Vol] 20 U/L Normal 15-37 [facility] Comment on above: Performed By: #### C MP ####[facility] Mfggseoitx2667[address] [place], [place] [address]Dr. Airam Tripathi Bilirubin [Mass/Vol] 0.3 mg/dL Normal 0.2-1.0 [facility] Comment on above: Performed By: #### C MP ####[facility] Auakeuftou[address] [place], [place] [address]Dr. Airam Tripathi Calcium [Mass/Vol] 8.5 mg/dL Normal 8.5-10.1 [facility] Comment on above: Performed By: #### C MP ####[facility] Pdxudqunch[address] [place], [place] [address]Dr. Airam Tripathi Chloride [Moles/Vol] 100 mmol/L Normal 98-107 [facility] Comment on above: Performed By: #### C MP ####[facility] Qggbluxosu3927 [place] [phone]. Airam Tripathi CO2 [Moles/Vol] 22.7 mmol/L Normal 21.0-32.0 [facility] Comment on above: Performed By: #### C MP ####[facility] Iximhrghir5856 [place] [phone]. Airam Tripathi Creatinine [Mass/Vol] 1.28 mg/dL Critically high 0.55-1.02 [facility] Comment on above: Performed By: #### C MP ####[facility] Fzxxvivrlb7592 [place] [address]Dr. Airam Tripathi EGFR-AF ISRAELI 52 mL/min/1.73m2 Critically low >=60 [facility] Comment on above: Performed By: #### C MP ####[facility] Gddgqcfykz1088 [place] [address]Dr. Airam Deuce EGFR-NON AF ISRAELI 43 mL/min/1.73m2 Critically low >=60 [facility] Comment on above: Performed By: #### C MP ####[facility] Oefxtqebyv7646 [place] [address]Dr. Airam Tripathi Globulin (S) [Mass/Vol] 2.9 g/dL Normal [facility] Comment on above: Performed By: #### C MP ####[facility] Vzrqhwjudd9443 [place] [address]Dr. Airam Deuce Glucose [Mass/Vol] 93 mg/dL Normal 74-106 [facility] Comment on above: Performed By: #### C MP ####[facility] Ikxsreblac1935 [place] [phone]. Airam Tripathi Potassium [Moles/Vol] 3.7 mmol/L Normal 3.5-5.1 [facility] Comment on above: Performed By: #### C MP ####[facility] Cospzdvtah3514 [place] [phone]. Airam Deuce Protein [Mass/Vol] 6.4 g/dL Normal 6.4-8.2 [facility] Comment on above: Performed By: #### C MP ####[facility] Niblmkzkoe[address] [place], [place] [address]Dr. Airam Tripathi Sodium [Moles/Vol] 133 mmol/L Critically low 136-145 [facility] Comment on above: Performed By: #### C MP ####[facility] Vfjfmrmwzx494[address] [place], [place] [address]Dr. Airam Deuce Urea nitrogen [Mass/Vol] 44.0 mg/dL Critically high 7.0-18.0 [facility] Comment on above: Performed By: #### C MP ####[facility] Itroiitegf1411[address] [place], [place] [address]Dr. Airam Deuce Urea nitrogen/Creatinine [Mass ratio] 34.4 mg/mg Normal [facility] Comment on above: Performed By: #### C MP ####[facility] Wfoxdijmkj039[address] [place], [place] [address]Dr. Airam Deuce OSMOLALITYon 02-10-2022 Osmolality [Osmolality] 288 mosm/kg Normal 275-295 [facility] Comment on above: Performed By: #### O SMO ####[facility] Hdwlqyadqr440[address] [place], [place] [address]Dr. Airam Deuce CBC AUTO DIFFon 02-08-2022 BASO # 0.0 103/ul Normal 0.0-0.1 [facility] Comment on above: Performed By: #### C BC ####[facility] Lfvemsoqtv145[address] [place], [place] [address]Dr. Airam Deuce Basophils/100 WBC (Bld) 0.3 % Normal 0.2-2.0 [facility] Comment on above: Performed By: #### C BC ####[facility] Pukbfvfpnm3484[address] [place], [place] [address]Dr. Airam Tripathi EO # 0.2 103/ul Normal 0.0-0.7 [facility] Comment on above: Performed By: #### C BC ####[facility] Aircdysvmy774[address] [place], [place] [address]Dr. Selenaneil Tripathi Eosinophils/100 WBC (Bld) 2.1 % Normal 0.9-7.0 [facility] Comment on above: Performed By: #### C BC ####[facility] Treccjdmzj4397[address] [place], [place] [address]Dr. Airam Tripathi Erythrocyte distribution width (RBC) [Ratio] 13.4 % Normal 11.0-15.0 [facility] Comment on above: Performed By: #### C BC ####[facility] Ukmqocfdfq3847[address] [place], [place] [address]Dr. Airma Tripathi Hematocrit (Bld) [Volume fraction] 35.1 % Critically low 36.0-48.0 [facility] Comment on above: Performed By: #### C BC ####[facility] Xnggnscszx5178[address] [place], [place] [address]Dr. Airam Tripathi Hemoglobin (Bld) [Mass/Vol] 10.9 g/dL Critically low 12.0-16.0 [facility] Comment on above: Performed By: #### C BC ####[facility] Gssfzslpas1147[address] [place], [place] [address]Dr. Airam Tripathi IG # 0.03 10e3/ul Normal 0.00-0.03 [facility] Comment on above: Performed By: #### C BC ####[facility] Olsncnmidh584[address] [place], [place] [address]Dr. Airam Tripathi IG % 0.3 % Normal 0.0-0.5 [facility] Comment on above: Performed By: #### C BC ####[facility] Llyfgukjvh765[address] [place], [place] [address]Dr. Airam Tripathi LYMPH # 1.3 103/ul Normal 1.2-3.8 [facility] Comment on above: Performed By: #### C BC ####[facility] Iqlxugvhdc1284[address] [place], [place] [address]Dr. Airam Tripathi Lymphocytes/100 WBC (Bld) 13.1 % Critically low 20.5-60.0 [facility] Comment on above: Performed By: #### C BC ####[facility] Mnnqdouwzu5054[address] [place], [place] [address]Dr. Airam Tripathi MANUAL DIFF REQ NO Normal [facility] Comment on above: Performed By: #### C BC ####[facility] Ondvbgywkv8244 [place] [address]Dr. Airam Tripathi MCH (RBC) [Entitic mass] 30.4 pg Normal 26.7-34.0 [facility] Comment on above: Performed By: #### C BC ####[facility] Pjoogkxyue7813 [place] [address]Dr. Airam Tripathi MCHC (RBC) [Mass/Vol] 31.1 g/dL Normal 29.9-35.2 [facility] Comment on above: Performed By: #### C BC ####[facility] Jomsqajrgu6174[address] [place], [place] [address]Dr. Airam Tripathi MCV (RBC) [Entitic vol] 98.0 fL Normal 81.0-99.0 [facility] Comment on above: Performed By: #### C BC ####[facility] Ntxvvpauhy022[address] [place], [place] [address]Dr. Airam Tripathi MONO # 0.5 103/ul Normal 0.3-0.8 [facility] Comment on above: Performed By: #### C BC ####[facility] Cffvcyquct779[address] [place], [place] [address]Dr. Airam Tripathi Monocytes/100 WBC (Bld) 4.7 % Normal 1.7-12.0 [facility] Comment on above: Performed By: #### C BC ####[facility] Kqxuwmgsqy33[address] [place], [place] [address]DrKianna Tripathi NEUT # 7.7 103/ul Critically high 1.4-6.5 [facility] Comment on above: Performed By: #### C BC ####[facility] Pjadrajper[address] [place], [place] [address]Dr. Airam Tripathi Neutrophils/100 WBC (Bld) 79.5 % Critically high 43.0-75.0 [facility] Comment on above: Performed By: #### C BC ####[facility] [address]lqbkaybju[address] [place], [place] [address]Dr. Airam Tripathi Platelet mean volume (Bld) [Entitic vol] 9.6 fL Normal 9.5-13.5 [facility] Comment on above: Performed By: #### C BC ####[facility] Hhgxcfbdns0938 [place] [address]Dr. Selenaneil Deuce PLT 268 103/ul Normal 150-450 [facility] Comment on above: Performed By: #### C BC ####[facility] Hfdeclxnlt7934 [place] [address]Dr. Airam Tripathi RBC 3.58 106/ul Critically low 4.20-5.40 [facility] Comment on above: Performed By: #### C BC ####[facility] Hczsgyhbif3810 [place] [address]Dr. Airam Tripathi WBC 9.7 103/ul Normal 4.0-11.0 [facility] Comment on above: Performed By: #### C BC ####[facility] Pvsxwnjsxd5221 [place] [address]DrKianna Tripathi PROF 14(COMP METB)on 022 Albumin [Mass/Vol] 3.6 g/dL Normal 3.4-5.0 [facility] Comment on above: Performed By: #### C MP ####[facility] V[address]vjvfhzn[address] [place], [place] [address]Dr. Airam Tripathi Albumin/Globulin [Mass ratio] 1.1 {ratio} Normal [facility] Comment on above: Performed By: #### C MP ####[facility] Zmwoytfogy7316 [place] [address]Dr. Airam Tripathi ALP [Catalytic activity/Vol] 131 U/L Critically high 46-116 [facility] Comment on above: Performed By: #### C MP ####[facility] Tyssedygzv5350 [place] [address]DrKianna Tripathi ALT [Catalytic activity/Vol] 22 U/L Normal 14-59 [facility] Comment on above: Performed By: #### C MP ####[facility] Zcttlyngdv107[address] [place], [place] [address]Dr. Airam Tripathi Anion gap [Moles/Vol] 13.3 mmol/L Normal Th e [facility] Comment on above: Performed By: #### C MP ####[facility] Ytyzginqgk9425 [place] [address]Dr. Airam Tripathi AST [Catalytic activity/Vol] 23 U/L Normal 15-37 [facility] Comment on above: Performed By: #### C MP ####[facility] Incseevfbm7703 [place] [address]Dr. Airam Tripathi Bilirubin [Mass/Vol] 0.3 mg/dL Normal 0.2-1.0 [facility] Comment on above: Performed By: #### C MP ####[facility] Xsxnjlsqvc[address] [place], [place] [address]Dr. Airam Tripathi Calcium [Mass/Vol] 8.7 mg/dL Normal 8.5-10.1 [facility] Comment on above: Performed By: #### C MP ####[facility] Ihqsataivp[address] [place], [place] [address]Dr. Airam Tripathi Chloride [Moles/Vol] 104 mmol/L Normal 98-107 [facility] Comment on above: Performed By: #### C MP ####[facility] Baselxyhbk[address] [place], [place] [address]Dr. Airam Tripathi CO2 [Moles/Vol] 22.0 mmol/L Normal 21.0-32.0 [facility] Comment on above: Performed By: #### C MP ####[facility] Zyelhllrql9[address] [place], [place] [address]Dr. Airam Deuce Creatinine [Mass/Vol] 1.20 mg/dL Critically high 0.55-1.02 [facility] Comment on above: Performed By: #### C MP ####[facility] Fwhseuciam[address] [place], [place] [address]Dr. Airam Tripathi EGFR-AF ISRAELI 56 mL/min/1.73m2 Critically low >=60 The [facility] Comment on above: Performed By: #### C MP ####[facility] Fpwpkkbutv[address] [place], [place] [address]Dr. Airam Tripathi EGFR-NON AF ISRAELI 46 mL/min/1.73m2 Critically low >=60 [facility] Comment on above: Performed By: #### C MP ####[facility] [address] [place] [address]Dr. Airam Deuce Globulin (S) [Mass/Vol] 3.2 g/dL Normal [facility] Comment on above: Performed By: #### C MP ####[facility] Ilqzfnzabk7[address] [place], [place] [address]Dr. Selenaneil Deuce Glucose [Mass/Vol] 98 mg/dL Normal 74-106 [facility] Comment on above: Performed By: #### C MP ####[facility] Pxqbbifpjr5[address] [place], [place] [address]Dr. Airam Tripathi Potassium [Moles/Vol] 4.3 mmol/L Normal 3.5-5.1 [facility] Comment on above: Performed By: #### C MP ####[facility] Mxpxmotfwf[address] [place], [place] [address]Dr. Selenaneil Deuce Protein [Mass/Vol] 6.8 g/dL Normal 6.4-8.2 [facility] Comment on above: Performed By: #### C MP ####[facility] Rovuwaumrn[address] [place], [place] [address]Dr. Selenaneil Deuce Sodium [Moles/Vol] 135 mmol/L Critically low 136-145 [facility] Comment on above: Performed By: #### C MP ####[facility] Koyboysphn627[address] [place], [place] [address]Dr. Selenaneil Deuce Urea nitrogen [Mass/Vol] 33.0 mg/dL Critically high 7.0-18.0 [facility] Comment on above: Performed By: #### C MP ####[facility] Ztgrmqkmxy[address] [place], [place] [address]Dr. Airam Tripathi Urea nitrogen/Creatinine [Mass ratio] 27.5 mg/mg Normal [facility] Comment on above: Performed By: #### C MP ####[facility] Aykpnrxoam479[address] [place], [place] [address]Dr. Airam Tripathi OSMOLALITYon 02-07-2022 Osmolality [Osmolality] 299 mosm/kg Critically high 275-295 [facility] Comment on above: Performed By: #### O SMO ####[facility] Eekgxvekjy[address] [place] [address]Dr. Airam Tripathi CBC AUTO DIFFon 02-03-2022 BASO # 0.0 103/ul Normal 0.0-0.1 [facility] Comment on above: Performed By: #### C BC ####[facility] Jvjpyrudjj[address] [place], [place] [address]Dr. Airam Tripathi Basophils/100 WBC (Bld) 0.4 % Normal 0.2-2.0 [facility] Comment on above: Performed By: #### C BC ####[facility] Iwshvxehld20[address] [place], [place] [address]Dr. Airam Tripathi EO # 0.3 103/ul Normal 0.0-0.7 [facility] Comment on above: Performed By: #### C BC ####[facility] Qcgjgaulxc2240[address] [place], [place] [address]Dr. Airam Tripathi Eosinophils/100 WBC (Bld) 3.6 % Normal 0.9-7.0 [facility] Comment on above: Performed By: #### C BC ####[facility] Xyzymyewxz7264[address] [place], [place] [address]Dr. Airam Tripathi Erythrocyte distribution width (RBC) [Ratio] 13.2 % Normal 11.0-15.0 [facility] Comment on above: Performed By: #### C BC ####[facility] Jwszcrgylo2[address] [place], [place] [address]Dr. Airam Tripathi Hematocrit (Bld) [Volume fraction] 32.0 % Critically low 36.0-48.0 [facility] Comment on above: Performed By: #### C BC ####[facility] Zdqkabgkti30[address] [place], [place] [address]Dr. Airam Tripathi Hemoglobin (Bld) [Mass/Vol] 9.8 g/dL Critically low 12.0-16.0 [facility] Comment on above: Performed By: #### C BC ####[facility] Efkzaouzkw39[address] [place], [place] [address]DrKianna Tripathi IG # 0.03 10e3/ul Normal 0.00-0.03 [facility] Comment on above: Performed By: #### C BC ####[facility] Ttzzgidnqb6062 [place] [address]DrKianna Tripathi IG % 0.4 % Normal 0.0-0.5 [facility] Comment on above: Performed By: #### C BC ####[facility] Jepsspksnf50[address] [place] [address]DrKianna Tripathi LYMPH # 1.7 103/ul Normal 1.2-3.8 [facility] Comment on above: Performed By: #### C BC ####[facility] Yvhvlfbiey3746 [place] [address]DrKianna Tripathi Lymphocytes/100 WBC (Bld) 24.8 % Normal 20.5-60.0 [facility] Comment on above: Performed By: #### C BC ####[facility] Ktiwlkxquq1834 [place] [address]DrKianna Tripathi MANUAL DIFF REQ NO Normal [facility] Comment on above: Performed By: #### C BC ####[facility] Nzdbwzroef6607 [place] [address]DrKianna Tripathi MCH (RBC) [Entitic mass] 29.6 pg Normal 26.7-34.0 [facility] Comment on above: Performed By: #### C BC ####[facility] Dbusmovent9016 [place] [address]DrKianna Tripathi MCHC (RBC) [Mass/Vol] 30.6 g/dL Normal 29.9-35.2 [facility] Comment on above: Performed By: #### C BC ####[facility] Bptltfnzvd1793 [place] [address]DrKianan Tripathi MCV (RBC) [Entitic vol] 96.7 fL Normal 81.0-99.0 [facility] Comment on above: Performed By: #### C BC ####[facility] Depyewbwsb6428 [place] [address]DrKianna Tripathi MONO # 0.4 103/ul Normal 0.3-0.8 [facility] Comment on above: Performed By: #### C BC ####[facility] Jjsbonllho70[address] [place] [id number] Tripathi Monocytes/100 WBC (Bld) 6.3 % Normal 1.7-12.0 [facility] Comment on above: Performed By: #### C BC ####[facility] Vtzgtbukub4816 [place] [address]DrKianna Tripathi NEUT # 4.5 103/ul Normal 1.4-6.5 [facility] Comment on above: Performed By: #### C BC ####[facility] Hfllsjbdtv9736 [place] [address]DrKianna Tripathi Neutrophils/100 WBC (Bld) 64.5 % Normal 43.0-75.0 [facility] Comment on above: Performed By: #### C BC ####[facility] Yptdirxucg1474[address] [place], [place] [address]DrKianna Airam Tripathi Platelet mean volume (Bld) [Entitic vol] 9.3 fL Critically low 9.5-13.5 [facility] Comment on above: Performed By: #### C BC ####[facility] Wqmfihpmpi4420[address] [place], [place] [address]Dr. Airam Tripathi PLT 243 103/ul Normal 150-450 [facility] Comment on above: Performed By: #### C BC ####[facility] Pjjvbcwpjd[address] [place], [place] [address]DrKianna Airam Tripathi RBC 3.31 106/ul Critically low 4.20-5.40 [facility] Comment on above: Performed By: #### C BC ####[facility] Ofvdjensid[address] [place], [place] [address]DrKianna Airam Tripathi WBC 7.0 103/ul Normal 4.0-11.0 [facility] Comment on above: Performed By: #### C BC ####[facility] Fejktgdeeo3229[address] [place], [place] [address]DrKianna Airam Deuce PROF 14(COMP METB)on 022 Albumin [Mass/Vol] 3.3 g/dL Critically low 3.4-5.0 [facility] Comment on above: Performed By: #### C MP ####[facility] Qesrwgbjik4762 [place] [address]Dr. Airam Tripathi Albumin/Globulin [Mass ratio] 1.1 {ratio} Normal [facility] Comment on above: Performed By: #### C MP ####[facility] Npzecnmkiy6838 [place] [address]Dr. Airam Tripathi ALP [Catalytic activity/Vol] 126 U/L Critically high 46-116 [facility] Comment on above: Performed By: #### C MP ####[facility] Ecpkuowsuq6844[address] [place], [place] [address]Dr. Airam Tripathi ALT [Catalytic activity/Vol] 21 U/L Normal 14-59 [facility] Comment on above: Performed By: #### C MP ####[facility] Rfyhftlxbz9764[address] [place], [place] [address]Dr. Airam Tripathi Anion gap [Moles/Vol] 11.8 mmol/L Normal [facility] Comment on above: Performed By: #### C MP ####[facility] Macdfiydop97[address] [place], [place] [address]Dr. Airam Tripathi AST [Catalytic activity/Vol] 22 U/L Normal 15-37 [facility] Comment on above: Performed By: #### C MP ####[facility] Jeolapxnlp8369[address] [place], [place] [address]Dr. Airam Tripathi Bilirubin [Mass/Vol] 0.3 mg/dL Normal 0.2-1.0 [facility] Comment on above: Performed By: #### C MP ####[facility] Lnpifmbkro7032[address] [place], [place] [address]Dr. Airam Tripathi Calcium [Mass/Vol] 8.7 mg/dL Normal 8.5-10.1 [facility] Comment on above: Performed By: #### C MP ####[facility] Sxxcbqzpry859[address] [place], [place] [address]Dr. Airam Tripathi Chloride [Moles/Vol] 102 mmol/L Normal 98-107 [facility] Comment on above: Performed By: #### C MP ####[facility] Xzyteqpiuc16[address] [place] [address]Dr. Selenaneil Deuce CO2 [Moles/Vol] 25.5 mmol/L Normal 21.0-32.0 [facility] Comment on above: Performed By: #### C MP ####[facility] Zelwdvyjzz2709 [place] [address]Dr. Airam Tripathi Creatinine [Mass/Vol] 1.43 mg/dL Critically high 0.55-1.02 [facility] Comment on above: Performed By: #### C MP ####[facility] Coqbvodzkv[address] [place], [place] [address]Dr. Airam Tripathi EGFR-AF ISRAELI 46 mL/min/1.73m2 Critically low >=60 [facility] Comment on above: Performed By: #### C MP ####[facility] Avckmjypmw8807[address] [place], [place] [address]Dr. Airam Tripathi EGFR-NON AF ISRAELI 38 mL/min/1.73m2 Critically low >=60 [facility] Comment on above: Performed By: #### C MP ####[facility] Snvrqylfay2765[address] [place], [place] [address]Dr. Airam Tripathi Globulin (S) [Mass/Vol] 2.9 g/dL Normal [facility] Comment on above: Performed By: #### C MP ####[facility] Schfnptabw789345 [address] [place], [place] [address]Dr. Airam Tripathi Glucose [Mass/Vol] 83 mg/dL Normal 74-106 [facility] Comment on above: Performed By: #### C MP ####[facility] Sotujyemkk[address]50[address] [place], [place] [address]Dr. Airam Tripathi Potassium [Moles/Vol] 4.3 mmol/L Normal 3.5-5.1 [facility] Comment on above: Performed By: #### C MP ####[facility] Shwzkadfng4337[address] [place], [place] [address]Dr. Airam Tripathi Protein [Mass/Vol] 6.2 g/dL Critically low 6.4-8.2 [facility] Comment on above: Performed By: #### C MP ####[facility] Mqakyldcde9688[address] [place], [place] [address]DrKianna Tripathi Sodium [Moles/Vol] 135 mmol/L Critically low 136-145 Th [facility] Comment on above: Performed By: #### C MP ####[facility] Ayzlxqvnoe3999[address] [place], [place] [address]DrKianna Tripathi Urea nitrogen [Mass/Vol] 39.0 mg/dL Critically high 7.0-18.0 [facility] Comment on above: Performed By: #### C MP ####[facility] Koyyapaghc2560[address] [place], [place] [address]DrKianna Tripathi Urea nitrogen/Creatinine [Mass ratio] 27.3 mg/mg Normal [facility] Comment on above: Performed By: #### C MP ####[facility] Qhhfsqfkrm64[address] [place], [place] [address]DrKianna Tripathi OSMOLALITYon 02-02-2022 Osmolality [Osmolality] 292 mosm/kg Normal 275-295 [facility] Comment on above: Performed By: #### O SMO ####[facility] Wcvurlljpv31[address] [place], [place] [address]DrKianna Tripathi CBC AUTO DIFFon 01-27-2022 BASO # 0.0 103/ul Normal 0.0-0.1 [facility] Comment on above: Performed By: #### C BC ####[facility] Tpezfjeart70364[address] [place], [place] [address]DrKianna Tripathi Basophils/100 WBC (Bld) 0.4 % Normal 0.2-2.0 [facility] Comment on above: Performed By: #### C BC ####[facility] Vcmkgomivi1494[address] [place], [place] [address]DrKianna Tripathi EO # 0.2 103/ul Normal 0.0-0.7 [facility] Comment on above: Performed By: #### C BC ####[facility] Oomjhbyzfv2069[address] [place], [place] [address]DrKianna Tripathi Eosinophils/100 WBC (Bld) 3.4 % Normal 0.9-7.0 [facility] Comment on above: Performed By: #### C BC ####[facility] Vioiayuyve0[address] [place] [address]Dr. Airam Tripathi Erythrocyte distribution width (RBC) [Ratio] 13.1 % Normal 11.0-15.0 [facility] Comment on above: Performed By: #### C BC ####[facility] Tcuodynyqc[address] [place], [place] [address]Dr. Airam Tripathi Hematocrit (Bld) [Volume fraction] 31.6 % Critically low 36.0-48.0 [facility] Comment on above: Performed By: #### C BC ####[facility] Wbceqgcewz2769[address] [place], [place] [address]Dr. Airam Tripathi Hemoglobin (Bld) [Mass/Vol] 9.9 g/dL Critically low 12.0-16.0 [facility] Comment on above: Performed By: #### C BC ####[facility] Qhowatovmo7454[address] [place], [place] [address]Dr. Airam Tripathi IG # 0.02 10e3/ul Normal 0.00-0.03 [facility] Comment on above: Performed By: #### C BC ####[facility] Wlzfwfceiu11[address] [place], [place] [address]Dr. Airam Tripathi IG % 0.4 % Normal 0.0-0.5 [facility] Comment on above: Performed By: #### C BC ####[facility] Dlztuwbvvs228[address] [place], [place] [address]Dr. Airam Tripathi LYMPH # 1.0 103/ul Critically low 1.2-3.8 [facility] Comment on above: Performed By: #### C BC ####[facility] Lhoogndzwe0177[address] [place], [place] [address]Dr. Airam Tripathi Lymphocytes/100 WBC (Bld) 17.4 % Critically low 20.5-60.0 [facility] Comment on above: Performed By: #### C BC ####[facility] Lqiyoqmsqw[address] [place], [place] [address]Dr. Selenaneil Tripathi MANUAL DIFF REQ NO Normal [facility] Comment on above: Performed By: #### C BC ####[facility] Chdwnqnkqu59[address] [place] [address]Dr. Airam Deuce MCH (RBC) [Entitic mass] 30.1 pg Normal 26.7-34.0 [facility] Comment on above: Performed By: #### C BC ####[facility] Exbefsmmsa680[address] [place], [place] [address]Dr. Airam Deuce MCHC (RBC) [Mass/Vol] 31.3 g/dL Normal 29.9-35.2 [facility] Comment on above: Performed By: #### C BC ####[facility] Dmaevvspam8[address] [place], [place] [address]Dr. Selenaneil Tripathi MCV (RBC) [Entitic vol] 96.0 fL Normal 81.0-99.0 [facility] Comment on above: Performed By: #### C BC ####[facility] Opfzclcsyp1975[address] [place], [place] [address]Dr. Airam Tripathi MONO # 0.5 103/ul Normal 0.3-0.8 [facility] Comment on above: Performed By: #### C BC ####[facility] Ziebuthkiy9357[address] [place], [place] [address]Dr. Airam Tripathi Monocytes/100 WBC (Bld) 8.6 % Normal 1.7-12.0 [facility] Comment on above: Performed By: #### C BC ####[facility] Xedjibpuqo38[address] [place], [place] [address]DrKianna Tripathi NEUT # 3.9 103/ul Normal 1.4-6.5 [facility] Comment on above: Performed By: #### C BC ####[facility] W[address]tamvdjm7145[address] [place], [place] [address]DrKianna Tripathi Neutrophils/100 WBC (Bld) 69.8 % Normal 43.0-75.0 [facility] Comment on above: Performed By: #### C BC ####[facility] Pynapuxgzl23[address] [place], [place] [address]Dr. Airam Tripathi Platelet mean volume (Bld) [Entitic vol] 9.6 fL Normal 9.5-13.5 [facility] Comment on above: Performed By: #### C BC ####[facility] Yfguxvfigy[address] [place] [address]Dr. Airam Tripathi PLT 228 103/ul Normal 150-450 [facility] Comment on above: Performed By: #### C BC ####[facility] Pjwvxylptb3446 [place] [address]Dr. Airam Tripathi RBC 3.29 106/ul Critically low 4.20-5.40 [facility] Comment on above: Performed By: #### C BC ####[facility] Zwoewgjabn7606 [place] [address]Dr. Airam Tripathi WBC 5.6 103/ul Normal 4.0-11.0 [facility] Comment on above: Performed By: #### C BC ####[facility] Covwnofsxa8823 [place] [address]DrKianna Tripathi PROF 14(COMP METB)on 022 Albumin [Mass/Vol] 3.1 g/dL Critically low 3.4-5.0 [facility] Comment on above: Performed By: #### C MP ####[facility] Qydkaazyaa1551 [place] [address]DrKianna Tripathi Albumin/Globulin [Mass ratio] 1.0 {ratio} Normal [facility] Comment on above: Performed By: #### C MP ####[facility] Memiisfruf[address] [place] [address]DrKianna Tripathi ALP [Catalytic activity/Vol] 131 U/L Critically high 46-116 [facility] Comment on above: Performed By: #### C MP ####[facility] Pjafkqbqkr4984 [place] [address]DrKianna Tripathi ALT [Catalytic activity/Vol] 19 U/L Normal 14-59 [facility] Comment on above: Performed By: #### C MP ####[facility] Eujpakkkue[address] [place], [place] [address]DrKianna Tripathi Anion gap [Moles/Vol] 12.9 mmol/L Normal [facility] Comment on above: Performed By: #### C MP ####[facility] Awaeueedco8[address] [place], [place] [address]Dr. Airam Tripathi AST [Catalytic activity/Vol] 21 U/L Normal 15-37 [facility] Comment on above: Performed By: #### C MP ####[facility] Gfdfdtktgk294[address] [place], [place] [address]Dr. Airam Deuce Bilirubin [Mass/Vol] 0.2 mg/dL Normal 0.2-1.0 [facility] Comment on above: Performed By: #### C MP ####[facility] Bwlonokflv455[address] [place], [place] [address]Dr. Airam Tripathi Calcium [Mass/Vol] 8.4 mg/dL Critically low 8.5-10.1 [facility] Comment on above: Performed By: #### C MP ####[facility] Xmptidibkf5127[address] [place], [place] [address]Dr. Airam Tripathi Chloride [Moles/Vol] 103 mmol/L Normal 98-107 [facility] Comment on above: Performed By: #### C MP ####[facility] Nuccdrzsex8[address] [place], [place] [address]Dr. Airam Tripathi CO2 [Moles/Vol] 23.7 mmol/L Normal 21.0-32.0 [facility] Comment on above: Performed By: #### C MP ####[facility] Fkppoxwqev617[address] [place], [place] [address]Dr. Airam Tripathi Creatinine [Mass/Vol] 1.37 mg/dL Critically high 0.55-1.02 [facility] Comment on above: Performed By: #### C MP ####[facility] Iuoykhfvyl[address] [place], [place] [address]Dr. Airam Tripathi EGFR-AF ISRAELI 48 mL/min/1.73m2 Critically low >=60 [facility] Comment on above: Performed By: #### C MP ####[facility] Ifazyslmco05[address] [place], [place] [address]Dr. Airam Tripathi EGFR-NON AF ISRAELI 39 mL/min/1.73m2 Critically low >=60 [facility] Comment on above: Performed By: #### C MP ####[facility] Ccjuubcgdu76[address] [place] [address]Dr. Airam Tripathi Globulin (S) [Mass/Vol] 3.1 g/dL Normal [facility] Comment on above: Performed By: #### C MP ####[facility] Mesozxnpuv0521 [place] [address]Dr. Airam Tripathi Glucose [Mass/Vol] 88 mg/dL Normal 74-106 [facility] Comment on above: Performed By: #### C MP ####[facility] Ccqronguou8732[address] [place], [place] [address]Dr. Airam Tripathi Potassium [Moles/Vol] 4.6 mmol/L Normal 3.5-5.1 [facility] Comment on above: Performed By: #### C MP ####[facility] Fkuzccfufq5040[address] [place], [place] [address]Dr. Airam Tripathi Protein [Mass/Vol] 6.2 g/dL Critically low 6.4-8.2 Th [facility] Comment on above: Performed By: #### C MP ####[facility] Acdhrjkhjs48[address] [place], [place] [address]Dr. Airam Tripathi Sodium [Moles/Vol] 135 mmol/L Critically low 136-145 Th [facility] Comment on above: Performed By: #### C MP ####[facility] Fuokaxfjmk4933[address] [place], [place] [address]Dr. Airam Tripathi Urea nitrogen [Mass/Vol] 34.0 mg/dL Critically high 7.0-18.0 [facility] Comment on above: Performed By: #### C MP ####[facility] [address]pjfkgmjoe4[address] [place], [place] [address]Dr. Airam Tripathi Urea nitrogen/Creatinine [Mass ratio] 24.8 mg/mg Normal [facility] Comment on above: Performed By: #### C MP ####[facility] Pvpxjrmvee[address]64[address] [place], [place] [address]Dr. Airam Tripathi OSMOLALITYon 07-29-2022 Osmolality [Osmolality] 276 mosm/kg Normal 275-295 [facility] Comment on above: Performed By: #### O SMO ####[facility] Whzgmbftxy[address] [place] [address]Dr. Airam Deuce MRI CSPINE WO CONon 01-21-20 22 MRI CSPINE WO CON Normal [facility] CBC AUTO DIFFon 01-19-2022 BASO # 0.0 103/ul Normal 0.0-0.1 [facility] Comment on above: Performed By: #### C BC ####[facility] Zvyzdyfkqy0202 [place] [address]Dr. Airam Tripathi Basophils/100 WBC (Bld) 0.2 % Normal 0.2-2.0 [facility] Comment on above: Performed By: #### C BC ####[facility] [address]gfwddfu[address] [place], [place] [address]Dr. Airam Tripathi EO # 0.2 103/ul Normal 0.0-0.7 [facility] Comment on above: Performed By: #### C BC ####[facility] [id number] [place], [place] [address]Dr. Airam Tripathi Eosinophils/100 WBC (Bld) 2.1 % Normal 0.9-7.0 [facility] Comment on above: Performed By: #### C BC ####[facility] Xlikdznpzb89[address] [place], [place] [address]Dr. Airam Tripathi Erythrocyte distribution width (RBC) [Ratio] 12.7 % Normal 11.0-15.0 [facility] Comment on above: Performed By: #### C BC ####[facility] Vzyesvsnix[address] [place], [place] [address]Dr. Airam Tripathi Hematocrit (Bld) [Volume fraction] 32.2 % Critically low 36.0-48.0 [facility] Comment on above: Performed By: #### C BC ####[facility] Qqffmmtpqb2[address] [place], [place] [address]Dr. Airam Tripathi Hemoglobin (Bld) [Mass/Vol] 10.4 g/dL Critically low 12.0-16.0 [facility] Comment on above: Performed By: #### C BC ####[facility] Ndniilijdp8[address] [place] [address]Dr. Airam Tripathi IG # 0.03 10e3/ul Normal 0.00-0.03 [facility] Comment on above: Performed By: #### C BC ####[facility] Aexasayuij7654 [place] [address]Dr. Airam Tripathi IG % 0.3 % Normal 0.0-0.5 [facility] Comment on above: Performed By: #### C BC ####[facility] Hcfwgkwiju32[address] [place] [address]Dr. Airam Tripathi LYMPH # 1.4 103/ul Normal 1.2-3.8 [facility] Comment on above: Performed By: #### C BC ####[facility] Ecxtkqexyi3235 [place] [address]DrKianna Tripathi Lymphocytes/100 WBC (Bld) 16.0 % Critically low 20.5-60.0 [facility] Comment on above: Performed By: #### C BC ####[facility] Enahrjbuvy0967 [place] [address]DrKianna Tripathi MANUAL DIFF REQ NO Normal [facility] Comment on above: Performed By: #### C BC ####[facility] Pmmdigtsse0177 [place] [address]Dr. Airam Tripathi MCH (RBC) [Entitic mass] 30.0 pg Normal 26.7-34.0 [facility] Comment on above: Performed By: #### C BC ####[facility] Hfnghgvlyz4426 [place] [address]Dr. Airam Tripathi MCHC (RBC) [Mass/Vol] 32.3 g/dL Normal 29.9-35.2 [facility] Comment on above: Performed By: #### C BC ####[facility] Qwexuendro9915 [place] [address]Dr. Airam Tripathi MCV (RBC) [Entitic vol] 92.8 fL Normal 81.0-99.0 [facility] Comment on above: Performed By: #### C BC ####[facility] Wjjvvzpprd90[address] [place] [phone]. Airam Tripathi MONO # 0.4 103/ul Normal 0.3-0.8 [facility] Comment on above: Performed By: #### C BC ####[facility] Seiezlxilb8743 [place] [phone]. Airam Tripathi Monocytes/100 WBC (Bld) 4.9 % Normal 1.7-12.0 [facility] Comment on above: Performed By: #### C BC ####[facility] Qhualztjmb2945 [place] [phone]. Airam Tripathi NEUT # 6.6 103/ul Critically high 1.4-6.5 [facility] Comment on above: Performed By: #### C BC ####[facility] Knmeanqgqq3043 [place] [address]Dr. Airam Tripathi Neutrophils/100 WBC (Bld) 76.5 % Critically high 43.0-75.0 [facility] Comment on above: Performed By: #### C BC ####[facility] Zpeecvtkdx2026 [place] [phone]. Airam Tripathi Platelet mean volume (Bld) [Entitic vol] 9.8 fL Normal 9.5-13.5 [facility] Comment on above: Performed By: #### C BC ####[facility] Voneezygws9726 [place] [phone]. Airam Tripathi PLT 262 103/ul Normal 150-450 [facility] Comment on above: Performed By: #### C BC ####[facility] Fbhlojbuei3516 [place] [phone]. Airam Tripathi RBC 3.47 106/ul Critically low 4.20-5.40 [facility] Comment on above: Performed By: #### C BC ####[facility] Alglzlmouw6154 [place] [phone]. Airam Tripathi WBC 8.7 103/ul Normal 4.0-11.0 [facility] Comment on above: Performed By: #### C BC ####[facility] Vgduatigsz3624 [place] [address]Dr. Airam Tripathi PROF 14(COMP METB)on 022 Albumin [Mass/Vol] 3.3 g/dL Critically low 3.4-5.0 [facility] Comment on above: Performed By: #### C MP ####[facility] Jxfpbgwwdg6910 [place] [address]Dr. Airam Tripathi Albumin/Globulin [Mass ratio] 1.1 {ratio} Normal [facility] Comment on above: Performed By: #### C MP ####[facility] Bjlgrofxzo[address] [place], [place] [address]Dr. Airam Tripathi ALP [Catalytic activity/Vol] 114 U/L Normal 46-116 [facility] Comment on above: Performed By: #### C MP ####[facility] Puzvalleoj022[address] [place], [place] [address]Dr. Airam Tripathi ALT [Catalytic activity/Vol] 20 U/L Normal 14-59 [facility] Comment on above: Performed By: #### C MP ####[facility] Znevcbsikb9[address] [place], [place] [address]Dr. Airam Tripathi Anion gap [Moles/Vol] 14.7 mmol/L Normal [facility] Comment on above: Performed By: #### C MP ####[facility] Idsucfxczu4634[address] [place], [place] [address]Dr. Airam Tripathi AST [Catalytic activity/Vol] 22 U/L Normal 15-37 [facility] Comment on above: Performed By: #### C MP ####[facility] Nttrgjkzpc83[address] [place], [place] [address]Dr. Airam Tripathi Bilirubin [Mass/Vol] 0.3 mg/dL Normal 0.2-1.0 [facility] Comment on above: Performed By: #### C MP ####[facility] Bggzqgpkvj3657[address] [place], [place] [address]Dr. Airam Tripathi Calcium [Mass/Vol] 8.8 mg/dL Normal 8.5-10.1 [facility] Comment on above: Performed By: #### C MP ####[facility] Iinppppusz4902 [place] [address]Dr. Airam Tripathi Chloride [Moles/Vol] 97 mmol/L Critically low 98-107 [facility] Comment on above: Performed By: #### C MP ####[facility] Wpnvuqygjf8913 [place] [address]Dr. Airam Tripathi CO2 [Moles/Vol] 24.5 mmol/L Normal 21.0-32.0 [facility] Comment on above: Performed By: #### C MP ####[facility] Sadiosnktw7[address] [place], [place] [address]Dr. Airam Tripathi Creatinine [Mass/Vol] 1.28 mg/dL Critically high 0.55-1.02 [facility] Comment on above: Performed By: #### C MP ####[facility] Tczcmqhwzn10[address] [place], [place] [address]Dr. Airam Tripathi EGFR-AF ISRAELI 52 mL/min/1.73m2 Critically low >=60 [facility] Comment on above: Performed By: #### C MP ####[facility] Tfpczfwqsd4257[address] [place], [place] [address]Dr. Airam Tripathi EGFR-NON AF ISRAELI 43 mL/min/1.73m2 Critically low >=60 [facility] Comment on above: Performed By: #### C MP ####[facility] Rtnzkthplj[address] [place], [place] [address]Dr. Airam Tripathi Globulin (S) [Mass/Vol] 3.1 g/dL Normal [facility] Comment on above: Performed By: #### C MP ####[facility] Isgavsykdn1549[address] [place], [place] [address]Dr. Airam Tripathi Glucose [Mass/Vol] 87 mg/dL Normal 74-106 [facility] Comment on above: Performed By: #### C MP ####[facility] Icwcwmtlhk61[address] [place], [place] [address]Dr. Airam Tripathi Potassium [Moles/Vol] 4.2 mmol/L Normal 3.5-5.1 [facility] Comment on above: Performed By: #### C MP ####[facility] Hlhwmljxsx1585 [place] [address]Dr. Airam Tripathi Protein [Mass/Vol] 6.4 g/dL Normal 6.4-8.2 [facility] Comment on above: Performed By: #### C MP ####[facility] Stfcbrhwgt5516[address] [place], [place] [address]Dr. Airam Tripathi Sodium [Moles/Vol] 132 mmol/L Critically low 136-145 Th [facility] Comment on above: Performed By: #### C MP ####[facility] Dklvvmudpg5718[address] [place], [place] [address]Dr. Airam Tripathi Urea nitrogen [Mass/Vol] 36.0 mg/dL Critically high 7.0-18.0 [facility] Comment on above: Performed By: #### C MP ####[facility] Pcaqtaeqyx6124[address] [place], [place] [address]Dr. Airam Tripathi Urea nitrogen/Creatinine [Mass ratio] 28.1 mg/mg Normal [facility] Comment on above: Performed By: #### C MP ####[facility] Mdyfzdmzpt8[address] [place], [place] [address]Dr. Airam Tripathi XR DEXA BONE DENSITYon 01-19 XR DEXA BONE DENSITY Normal [facility] OSMOLALITYon 01-13-2022 Osmolality [Osmolality] 277 mosm/kg Normal 275-295 [facility] Comment on above: Performed By: #### O SMO ####[facility] Qktfvqpbtl689[address] [place], [place] [address]Dr. Airam Tripathi CBC AUTO DIFFon 01-11-2022 BASO # 0.0 103/ul Normal 0.0-0.1 [facility] Comment on above: Performed By: #### C BC ####[facility] Vughclopok[address]23[address] [place], [place] [address]Dr. Airam Tripathi Basophils/100 WBC (Bld) 0.5 % Normal 0.2-2.0 [facility] Comment on above: Performed By: #### C BC ####[facility] Iyroebgcdt[address] [place], [place] [address]Dr. Airam Tripathi EO # 0.2 103/ul Normal 0.0-0.7 [facility] Comment on above: Performed By: #### C BC ####[facility] Vafrpwogyg0406 [place] [address]Dr. Airam Tripathi Eosinophils/100 WBC (Bld) 3.1 % Normal 0.9-7.0 [facility] Comment on above: Performed By: #### C BC ####[facility] Fnbaeiklwd230[address] [place], [place] [address]Dr. Airam Tripathi Erythrocyte distribution width (RBC) [Ratio] 12.5 % Normal 11.0-15.0 [facility] Comment on above: Performed By: #### C BC ####[facility] Yllirvqcuh118[address] [place], [place] [address]Dr. Airam Tripathi Hematocrit (Bld) [Volume fraction] 34.4 % Critically low 36.0-48.0 [facility] Comment on above: Performed By: #### C BC ####[facility] Isbtedhpzk9[address] [place], [place] [address]Dr. Airam Tripathi Hemoglobin (Bld) [Mass/Vol] 11.0 g/dL Critically low 12.0-16.0 [facility] Comment on above: Performed By: #### C BC ####[facility] Rokaofwfts63[address] [place], [place] [address]Dr. Airam Tripathi IG # 0.03 10e3/ul Normal 0.00-0.03 [facility] Comment on above: Performed By: #### C BC ####[facility] Rbarfnpusj[address] [place], [place] [address]Dr. Airam Tripathi IG % 0.5 % Normal 0.0-0.5 [facility] Comment on above: Performed By: #### C BC ####[facility] Mtjfiiuhuq978[address] [place], [place] [address]DrKianna Airam Tripathi LYMPH # 1.6 103/ul Normal 1.2-3.8 [facility] Comment on above: Performed By: #### C BC ####[facility] Oomedrdssi9325[address] [place], [place] [address]Dr. Airam Tripathi Lymphocytes/100 WBC (Bld) 28.0 % Normal 20.5-60.0 [facility] Comment on above: Performed By: #### C BC ####[facility] Fkyocwoyky0346 [place] [address]DrKianna Tripathi MANUAL DIFF REQ NO Normal [facility] Comment on above: Performed By: #### C BC ####[facility] Wmsdszwbpy6403 [place] [address]Dr. Airam Tripathi MCH (RBC) [Entitic mass] 30.1 pg Normal 26.7-34.0 [facility] Comment on above: Performed By: #### C BC ####[facility] Vfzfbglmgk9911[address] [place], [place] [address]Dr. Airam Tripathi MCHC (RBC) [Mass/Vol] 32.0 g/dL Normal 29.9-35.2 [facility] Comment on above: Performed By: #### C BC ####[facility] Ftbkinpabg9374[address] [place], [place] [address]Dr. Airam Tripathi MCV (RBC) [Entitic vol] 94.0 fL Normal 81.0-99.0 [facility] Comment on above: Performed By: #### C BC ####[facility] Dxdsmgrcfo40[address] [place], [place] [address]DrKianna Tripathi MONO # 0.4 103/ul Normal 0.3-0.8 [facility] Comment on above: Performed By: #### C BC ####[facility] Ufkhgvdcpi196[address] [place], [place] [address]DrKianna Tripathi Monocytes/100 WBC (Bld) 7.5 % Normal 1.7-12.0 [facility] Comment on above: Performed By: #### C BC ####[facility] Fycwoabhqm[address] [place], [place] [address]DrKianna Tripathi NEUT # 3.5 103/ul Normal 1.4-6.5 [facility] Comment on above: Performed By: #### C BC ####[facility] Athycofqxw8025[address] [place], [place] [address]DrKianna Tripathi Neutrophils/100 WBC (Bld) 60.4 % Normal 43.0-75.0 [facility] Comment on above: Performed By: #### C BC ####[facility] Fkibhicnuu3829 [place] [address]DrKianna Tripathi Platelet mean volume (Bld) [Entitic vol] 10.0 fL Normal 9.5-13.5 [facility] Comment on above: Performed By: #### C BC ####[facility] Pimmwdktnr9818 [place] [address]DrKianna Tripathi PLT 300 103/ul Normal 150-450 [facility] Comment on above: Performed By: #### C BC ####[facility] Bnvfvhglqp079[address] [place], [place] [address]DrKianna Tripathi RBC 3.66 106/ul Critically low 4.20-5.40 [facility] Comment on above: Performed By: #### C BC ####[facility] Hlhiozatcf[address] [place], [place] [address]DrKianna Tripathi WBC 5.7 103/ul Normal 4.0-11.0 [facility] Comment on above: Performed By: #### C BC ####[facility] Xcwyyvpmfv285[address] [place], [place] [address]Dr. Airam Tripathi PROF 14(COMP METB)on 022 Albumin [Mass/Vol] 3.3 g/dL Critically low 3.4-5.0 [facility] Comment on above: Performed By: #### C MP ####[facility] Fkapeiiooz7326 [place] [address]DrKianna Tripathi Albumin/Globulin [Mass ratio] 1.0 {ratio} Normal [facility] Comment on above: Performed By: #### C MP ####[facility] Vezsmysjis[address] [place], [place] [address]DrKianna Tripathi ALP [Catalytic activity/Vol] 138 U/L Critically high 46-116 [facility] Comment on above: Performed By: #### C MP ####[facility] Bhibzsveif8244[address] [place], [place] [address]Dr. Airam Tripathi ALT [Catalytic activity/Vol] 25 U/L Normal 14-59 [facility] Comment on above: Performed By: #### C MP ####[facility] Hflhrnkvbi5559 [place] [address]Dr. Selenaneil Deuce Anion gap [Moles/Vol] 14.0 mmol/L Normal Th e [facility] Comment on above: Performed By: #### C MP ####[facility] Vglzvtfovr0686 [place] [address]Dr. Airam Deuce AST [Catalytic activity/Vol] 19 U/L Normal 15-37 [facility] Comment on above: Performed By: #### C MP ####[facility] Bjudvuzwcv[address] [place], [place] [address]Dr. Airam Tripathi Bilirubin [Mass/Vol] 0.3 mg/dL Normal 0.2-1.0 [facility] Comment on above: Performed By: #### C MP ####[facility] Fqfjzbjchj[address] [place], [place] [address]Dr. Airam Tripathi Calcium [Mass/Vol] 8.7 mg/dL Normal 8.5-10.1 [facility] Comment on above: Performed By: #### C MP ####[facility] Indebqzxqs5324[address] [place], [place] [address]Dr. Airam Tripathi Chloride [Moles/Vol] 99 mmol/L Normal 98-107 [facility] Comment on above: Performed By: #### C MP ####[facility] Dbrirxffgc1180[address] [place], [place] [address]Dr. Airam Tripathi CO2 [Moles/Vol] 25.4 mmol/L Normal 21.0-32.0 [facility] Comment on above: Performed By: #### C MP ####[facility] Dxnupttfsc9[address] [place], [place] [address]Dr. Airam Tripathi Creatinine [Mass/Vol] 1.22 mg/dL Critically high 0.55-1.02 [facility] Comment on above: Performed By: #### C MP ####[facility] Ikkorhkvig463[address] [place], [place] [address]Dr. Airam Tripathi EGFR-AF ISRAELI 55 mL/min/1.73m2 Critically low >=60 [facility] Comment on above: Performed By: #### C MP ####[facility] Grcdkibgys[address] [place] [address]Dr. Selenaneil Deuce EGFR-NON AF ISRAELI 45 mL/min/1.73m2 Critically low >=60 [facility] Comment on above: Performed By: #### C MP ####[facility] Usyzvoizfb4866 [place] [phone]. Airam Tripathi Globulin (S) [Mass/Vol] 3.2 g/dL Normal [facility] Comment on above: Performed By: #### C MP ####[facility] Uehiztmtfh220[address] [place], [place] [address]Dr. Airam Tripathi Glucose [Mass/Vol] 111 mg/dL Critically high 74-106 [facility] Comment on above: Performed By: #### C MP ####[facility] Xbtnurovlb8189[address] [place], [place] [address]Dr. Airam Tripathi Potassium [Moles/Vol] 4.4 mmol/L Normal 3.5-5.1 [facility] Comment on above: Performed By: #### C MP ####[facility] Jrpuzqnfty2339[address] [place], [place] [address]Dr. Airam Tripathi Protein [Mass/Vol] 6.5 g/dL Normal 6.4-8.2 [facility] Comment on above: Performed By: #### C MP ####[facility] Qwxmuusmkq6487 [place] [address]Dr. Airam Tripathi Sodium [Moles/Vol] 134 mmol/L Critically low 136-145 Th [facility] Comment on above: Performed By: #### C MP ####[facility] Swerpzvtnr[address] [place], [place] [address]Dr. Airam Tripathi Urea nitrogen [Mass/Vol] 27.0 mg/dL Critically high 7.0-18.0 [facility] Comment on above: Performed By: #### C MP ####[facility] Vtgodmjtya[address] [place], [place] [address]Dr. Airam Tripathi Urea nitrogen/Creatinine [Mass ratio] 22.1 mg/mg Normal [facility] Comment on above: Performed By: #### C ####[facility] Roc[address] [place], [place] [address]Jw. Airam Tripathi CT CERVICAL SPINE WITHOUT CO NTRASTon 01-10-2022 CT CERVICAL SPINE WITHOUT CONTRAST [facility] Department of Radiology [address] [place] [id number] Patient Name: MABEL MOSER : 1960 Sex: F Age: Race: White Pt. Location: 29 Patient Status: D Ordered Date: 08/17/2021 10:00:00 AM Completed Date: 01/10/2022 10:24 AM Requesting Provider: ROBERT JOHNSTON Attending Provider: ROBERT JOHNSTON Report Copy To: YURI SANTANA Signs & Symptoms: M54.12 Radiculopathy, cervical region I10 History: [place] seeing Dr. Johnston after Comments: Exam: CT [...] achievable. Electronically signed: Ayleen Ny. Transcribed by: [email or web address], User Resident: Electronically Signed by: AYLEEN [place] @ 01/12/2022 12:32 PM Normal [facility] OSMOLALITYon 01-07-2022 Osmolality [Osmolality] 286 mosm/kg Normal 275-295 [facility] Comment on above: Performed By: #### O SMO ####[facility] Khhuphglgf13[address] [place] [address]Dr. Airam Tripathi CBC AUTO DIFFon 01-06-2022 BASO # 0.0 103/ul Normal 0.0-0.1 [facility] Comment on above: Performed By: #### C BC ####[facility] Nddxpdlntg1996 [place] [address]Dr. Airam Tripathi Basophils/100 WBC (Bld) 0.3 % Normal 0.2-2.0 [facility] Comment on above: Performed By: #### C BC ####[facility] Npnsfejmiu7587 [place] [address]Dr. Airam Tripathi EO # 0.2 103/ul Normal 0.0-0.7 [facility] Comment on above: Performed By: #### C BC ####[facility] Ouakjylevh4492 [place] [address]Dr. Airam Tripathi Eosinophils/100 WBC (Bld) 4.1 % Normal 0.9-7.0 [facility] Comment on above: Performed By: #### C BC ####[facility] Iajhvumelf3512 [place] [address]Dr. Airam Tripathi Erythrocyte distribution width (RBC) [Ratio] 12.9 % Normal 11.0-15.0 [facility] Comment on above: Performed By: #### C BC ####[facility] Qtrtqmnnwj6[address] [place], [place] [address]Dr. Airam Tripathi Hematocrit (Bld) [Volume fraction] 34.2 % Critically low 36.0-48.0 [facility] Comment on above: Performed By: #### C BC ####[facility] Txoavmmgif34[address] [place], [place] [address]Dr. Airam Tripathi Hemoglobin (Bld) [Mass/Vol] 10.6 g/dL Critically low 12.0-16.0 [facility] Comment on above: Performed By: #### C BC ####[facility] Bqpfoqysmr[address] [place], [place] [address]Dr. Airam Tripathi IG # 0.03 10e3/ul Normal 0.00-0.03 [facility] Comment on above: Performed By: #### C BC ####[facility] Tixufrbulh22[address] [place], [place] [address]Dr. Airam Tripathi IG % 0.5 % Normal 0.0-0.5 [facility] Comment on above: Performed By: #### C BC ####[facility] Uwytnggati16[address] [place], [place] [address]Dr. Airam Tripathi LYMPH # 1.1 103/ul Critically low 1.2-3.8 [facility] Comment on above: Performed By: #### C BC ####[facility] Qktalpcprp[address] [place], [place] [address]Dr. Airam Tripathi Lymphocytes/100 WBC (Bld) 18.2 % Critically low 20.5-60.0 [facility] Comment on above: Performed By: #### C BC ####[facility] Hsixcfiuiw3551 [place] [address]Dr. Airam Tripathi MANUAL DIFF REQ NO Normal [facility] Comment on above: Performed By: #### C BC ####[facility] Advmjfxbdh10[address] [place] [id number]. Airam Tripathi MCH (RBC) [Entitic mass] 29.6 pg Normal 26.7-34.0 [facility] Comment on above: Performed By: #### C BC ####[facility] Hyuqidscao[address] [place], [place] [address]Dr. Airam Tripathi MCHC (RBC) [Mass/Vol] 31.0 g/dL Normal 29.9-35.2 [facility] Comment on above: Performed By: #### C BC ####[facility] Fexknzkopp226[address] [place], [place] [address]Dr. Airam Tripathi MCV (RBC) [Entitic vol] 95.5 fL Normal 81.0-99.0 [facility] Comment on above: Performed By: #### C BC ####[facility] Vquakbqhri029[address] [place], [place] [address]Dr. Airam Tripathi MONO # 0.5 103/ul Normal 0.3-0.8 [facility] Comment on above: Performed By: #### C BC ####[facility] Nitsaxyeuz409[address] [place], [place] [address]Dr. Airam Tripathi Monocytes/100 WBC (Bld) 8.5 % Normal 1.7-12.0 [facility] Comment on above: Performed By: #### C BC ####[facility] Glnfphbvyo2569[address] [place], [place] [address]Dr. Airam Tripathi NEUT # 4.0 103/ul Normal 1.4-6.5 [facility] Comment on above: Performed By: #### C BC ####[facility] Ekanhzgxak4325[address] [place], [place] [address]Dr. Airam Tripathi Neutrophils/100 WBC (Bld) 68.4 % Normal 43.0-75.0 [facility] Comment on above: Performed By: #### C BC ####[facility] Ugargpfirz4243 [place] [address]Dr. Selenaneil Deuce Platelet mean volume (Bld) [Entitic vol] 10.1 fL Normal 9.5-13.5 [facility] Comment on above: Performed By: #### C BC ####[facility] Qmplgqywls2768 [place] [address]Dr. Airam Tripathi PLT 304 103/ul Normal 150-450 [facility] Comment on above: Performed By: #### C BC ####[facility] Fndgqevsxs7153 [place] [address]Dr. Airam Tripathi RBC 3.58 106/ul Critically low 4.20-5.40 [facility] Comment on above: Performed By: #### C BC ####[facility] Fmndgxgcbu7786 [place] [address]Dr. Airam Tripathi WBC 5.9 103/ul Normal 4.0-11.0 [facility] Comment on above: Performed By: #### C BC ####[facility] Vnqleuadnr53[address] [place], [place] [address]Dr. Airam Tripathi MG MAMM RT DIAG FUon 022 MG MAMM RT DIAG FU Normal [facility] PROF 14(COMP METB)on 022 Albumin [Mass/Vol] 3.1 g/dL Critically low 3.4-5.0 Th e [facility] Comment on above: Performed By: #### C MP ####[facility] Jzvxfwdpsy9409 [place] [address]Dr. Airam Tripathi Albumin/Globulin [Mass ratio] 1.0 {ratio} Normal [facility] Comment on above: Performed By: #### C MP ####[facility] Gdajsjgvxj[address] [place], [place] [address]Dr. Airam Tripathi ALP [Catalytic activity/Vol] 143 U/L Critically high 46-116 [facility] Comment on above: Performed By: #### C MP ####[facility] Kcdatwjden0480[address] [place], [place] [address]Dr. Airam Tripathi ALT [Catalytic activity/Vol] 23 U/L Normal 14-59 [facility] Comment on above: Performed By: #### C MP ####[facility] Xzmbqbrjnb8669 [place] [address]Dr. Selenaneil Deuce Anion gap [Moles/Vol] 13.2 mmol/L Normal [facility] Comment on above: Performed By: #### C MP ####[facility] Lxlurcuzzr7734[address] [place], [place] [address]Dr. Airam Tripathi AST [Catalytic activity/Vol] 20 U/L Normal 15-37 [facility] Comment on above: Performed By: #### C MP ####[facility] Wyggeysebx548[address] [place], [place] [address]Dr. Airam Tripathi Bilirubin [Mass/Vol] 0.3 mg/dL Normal 0.2-1.0 [facility] Comment on above: Performed By: #### C MP ####[facility] Gbrbpazvto8467[address] [place], [place] [address]Dr. Airam Tripathi Calcium [Mass/Vol] 8.2 mg/dL Critically low 8.5-10.1 [facility] Comment on above: Performed By: #### C MP ####[facility] Kktupswett267[address] [place], [place] [address]Dr. Airam Tripathi Chloride [Moles/Vol] 100 mmol/L Normal 98-107 [facility] Comment on above: Performed By: #### C MP ####[facility] Hcalreguyz085745 [address] [place], [place] [address]Dr. Airam Tripathi CO2 [Moles/Vol] 26.0 mmol/L Normal 21.0-32.0 [facility] Comment on above: Performed By: #### C MP ####[facility] Cihtqykhrt6094[address] [place], [place] [address]Dr. Airam Tripathi Creatinine [Mass/Vol] 1.52 mg/dL Critically high 0.55-1.02 [facility] Comment on above: Performed By: #### C MP ####[facility] Akmalnlhqp1208[address] [place], [place] [address]Dr. Airam Tripathi EGFR-AF ISRAELI 42 mL/min/1.73m2 Critically low >=60 [facility] Comment on above: Performed By: #### C MP ####[facility] Tsdkkjzpia75[address] [place] [address]Dr. Airam Deuce EGFR-NON AF ISRAELI 35 mL/min/1.73m2 Critically low >=60 [facility] Comment on above: Performed By: #### C MP ####[facility] Kkfxycairo3[address] [place], [place] [address]Dr. Selenaneil Deuce Globulin (S) [Mass/Vol] 3.2 g/dL Normal [facility] Comment on above: Performed By: #### C MP ####[facility] Yvkiizwioy9045[address] [place], [place] [address]Dr. Airam Tripathi Glucose [Mass/Vol] 84 mg/dL Normal 74-106 [facility] Comment on above: Performed By: #### C MP ####[facility] Yixhcoovtu8279[address] [place], [place] [address]Dr. Airam Tripathi Potassium [Moles/Vol] 4.2 mmol/L Normal 3.5-5.1 [facility] Comment on above: Performed By: #### C MP ####[facility] Efnughjlkp3378[address] [place], [place] [address]Dr. Airam Tripathi Protein [Mass/Vol] 6.3 g/dL Critically low 6.4-8.2 [facility] Comment on above: Performed By: #### C MP ####[facility] Djzrocyszm766645 [address] [place], [place] [address]Dr. Airam Tripathi Sodium [Moles/Vol] 135 mmol/L Critically low 136-145 Th [facility] Comment on above: Performed By: #### C MP ####[facility] Ujjbdpoytf7988[address] [place], [place] [address]Dr. Airam Tripathi Urea nitrogen [Mass/Vol] 36.0 mg/dL Critically high 7.0-18.0 [facility] Comment on above: Performed By: #### C MP ####[facility] Mbfhfoftpt5410[address] [place], [place] [address]Dr. Airam Tripathi Urea nitrogen/Creatinine [Mass ratio] 23.7 mg/mg Normal [facility] Comment on above: Performed By: #### C MP ####[facility] Ontgmdvhlu666745 [address] [place], [place] [address]Dr. Airam Tripathi US BREAST RIGHT LIMITEDon US BREAST RIGHT LIMITED Normal [facility] OSMOLALITYon 12-31-2021 Osmolality [Osmolality] 280 mosm/kg Normal 275-295 [facility] Comment on above: Performed By: #### O SMO ####[facility] Kpqcfhpsmo8110[address] [place], [place] [address]Dr. Airam Tripathi CBC AUTO DIFFon 12-30-2021 BASO # 0.0 103/ul Normal 0.0-0.1 [facility] Comment on above: Performed By: #### C BC ####[facility] Cmsojjoljs450[address] [place], [place] [address]Dr. Airam Tripathi Basophils/100 WBC (Bld) 0.5 % Normal 0.2-2.0 [facility] Comment on above: Performed By: #### C BC ####[facility] Yuaevvydqa[address] [place], [place] [address]Dr. Airam Tripathi EO # 0.3 103/ul Normal 0.0-0.7 [facility] Comment on above: Performed By: #### C BC ####[facility] Bahwirvsrl646[address] [place], [place] [address]Dr. Airam Tripathi Eosinophils/100 WBC (Bld) 3.5 % Normal 0.9-7.0 [facility] Comment on above: Performed By: #### C BC ####[facility] Pucdwtkquz899[address] [place], [place] [address]Dr. Airam Tripathi Erythrocyte distribution width (RBC) [Ratio] 13.0 % Normal 11.0-15.0 [facility] Comment on above: Performed By: #### C BC ####[facility] Zslvvpncbh688[address] [place], [place] [address]Dr. Airam Tripathi Hematocrit (Bld) [Volume fraction] 34.2 % Critically low 36.0-48.0 [facility] Comment on above: Performed By: #### C BC ####[facility] Avprghdjtf77[address] [place] [address]Dr. Airam Tripathi Hemoglobin (Bld) [Mass/Vol] 10.4 g/dL Critically low 12.0-16.0 [facility] Comment on above: Performed By: #### C BC ####[facility] Ioxelehwhd2536 [place] [address]Dr. Airam Tripathi IG # 0.04 10e3/ul Critically high 0.00-0.03 [facility] Comment on above: Performed By: #### C BC ####[facility] Ukupkspqbf4090[address] [place], [place] [address]Dr. Airam Tripathi IG % 0.5 % Normal 0.0-0.5 [facility] Comment on above: Performed By: #### C BC ####[facility] Xyljvtheox8[address] [place], [place] [address]Dr. Airam Tripathi LYMPH # 2.1 103/ul Normal 1.2-3.8 [facility] Comment on above: Performed By: #### C BC ####[facility] Nyzvhjaupk0790[address] [place], [place] [address]Dr. Airam Tripathi Lymphocytes/100 WBC (Bld) 23.5 % Normal 20.5-60.0 [facility] Comment on above: Performed By: #### C BC ####[facility] Kykvvrlsfm967[address] [place], [place] [address]Dr. Airam Tripathi MANUAL DIFF REQ NO Normal [facility] Comment on above: Performed By: #### C BC ####[facility] Qknugpjkrm6704[address] [place], [place] [address]Dr. Airam Tripathi MCH (RBC) [Entitic mass] 29.4 pg Normal 26.7-34.0 [facility] Comment on above: Performed By: #### C BC ####[facility] Vbgqksfswr9715[address] [place], [place] [address]Dr. Airam Tripathi MCHC (RBC) [Mass/Vol] 30.4 g/dL Normal 29.9-35.2 [facility] Comment on above: Performed By: #### C BC ####[facility] Poeunzvnmc44[address] [place] [id number]. Airam Tripathi MCV (RBC) [Entitic vol] 96.6 fL Normal 81.0-99.0 [facility] Comment on above: Performed By: #### C BC ####[facility] Zygpeemmop3673 [place] [id number]. Airam Tripathi MONO # 0.6 103/ul Normal 0.3-0.8 [facility] Comment on above: Performed By: #### C BC ####[facility] Aobuskypvg7778[address] [place], [place] [address]Dr. Airam Tripathi Monocytes/100 WBC (Bld) 6.4 % Normal 1.7-12.0 [facility] Comment on above: Performed By: #### C BC ####[facility] Seglrdpqkn601[address] [place], [place] [address]Dr. Airam Tripathi NEUT # 5.8 103/ul Normal 1.4-6.5 [facility] Comment on above: Performed By: #### C BC ####[facility] Gihokczhwy459[address] [place], [place] [address]Dr. Airam Tripathi Neutrophils/100 WBC (Bld) 65.6 % Normal 43.0-75.0 [facility] Comment on above: Performed By: #### C BC ####[facility] Skyfluewnf5[address] [place], [place] [address]Dr. Airam Tripathi Platelet mean volume (Bld) [Entitic vol] 9.2 fL Critically low 9.5-13.5 [facility] Comment on above: Performed By: #### C BC ####[facility] Qyrkfukwuc8[address] [place], [place] [address]Dr. Airam Tripathi PLT 338 103/ul Normal 150-450 [facility] Comment on above: Performed By: #### C BC ####[facility] Wykxlfplxw[address] [place], [place] [address]Dr. Airam Tripathi RBC 3.54 106/ul Critically low 4.20-5.40 [facility] Comment on above: Performed By: #### C BC ####[facility] Wndcteftpz2204 [place] [address]Dr. Airam Tripathi WBC 8.9 103/ul Normal 4.0-11.0 [facility] Comment on above: Performed By: #### C BC ####[facility] Cglpxtweox4327 [place] [address]Dr. Airam Tripathi MG MAMM SCREEN 3D GUMARO CADon 12-30-2021 MG MAMM SCREEN 3D GUMARO CAD Normal [facility] PROF 14(COMP METB)on 022 Albumin [Mass/Vol] 3.6 g/dL Normal 3.4-5.0 [facility] Comment on above: Performed By: #### C MP ####[facility] Orehfxrelz9877 [place] [address]Dr. Airam Tripathi Albumin/Globulin [Mass ratio] 1.1 {ratio} Normal [facility] Comment on above: Performed By: #### C MP ####[facility] Yzftwterni9[address] [place], [place] [address]Dr. Airam Tripathi ALP [Catalytic activity/Vol] 117 U/L Critically high 46-116 [facility] Comment on above: Performed By: #### C MP ####[facility] Uqthjvfijq[address] [place], [place] [address]Dr. Airam Tripathi ALT [Catalytic activity/Vol] 26 U/L Normal 14-59 [facility] Comment on above: Performed By: #### C MP ####[facility] Bmojdthkrx9749 [place] [address]Dr. Airam Tripathi Anion gap [Moles/Vol] 11.2 mmol/L Normal [facility] Comment on above: Performed By: #### C MP ####[facility] Hjgmxdipan4325 [place] [address]Dr. Airam Tripathi AST [Catalytic activity/Vol] 29 U/L Normal 15-37 [facility] Comment on above: Performed By: #### C MP ####[facility] Alyfqugeng0954 [place] [address]Dr. Airam Tripathi Bilirubin [Mass/Vol] 0.3 mg/dL Normal 0.2-1.0 [facility] Comment on above: Performed By: #### C MP ####[facility] Wiklnnnedn9589 [place] [address]Dr. Airam Tripathi Calcium [Mass/Vol] 9.1 mg/dL Normal 8.5-10.1 [facility] Comment on above: Performed By: #### C MP ####[facility] Zozdadfurn4190 [place] [address]Dr. Airam Tripathi Chloride [Moles/Vol] 101 mmol/L Normal 98-107 [facility] Comment on above: Performed By: #### C MP ####[facility] Kayngsrmut8332 [place] [address]Dr. Airam Tripathi CO2 [Moles/Vol] 26.8 mmol/L Normal 21.0-32.0 [facility] Comment on above: Performed By: #### C MP ####[facility] Wxhiulejam8220[address] [place], [place] [address]Dr. Airam Tripathi Creatinine [Mass/Vol] 1.56 mg/dL Critically high 0.55-1.02 [facility] Comment on above: Performed By: #### C MP ####[facility] Ntyreufvtr63[address] [place], [place] [address]Dr. Airam Tripathi EGFR-AF ISRAELI 41 mL/min/1.73m2 Critically low >=60 [facility] Comment on above: Performed By: #### C MP ####[facility] Qsfzofylcp5251 [place] [address]Dr. Airam Deuce EGFR-NON AF ISRAELI 34 mL/min/1.73m2 Critically low >=60 [facility] Comment on above: Performed By: #### C MP ####[facility] Gsgqvvgwth[address] [place], [place] [address]Dr. Airam Deuce Globulin (S) [Mass/Vol] 3.3 g/dL Normal [facility] Comment on above: Performed By: #### C MP ####[facility] Pvsawblizv2036 [place] [phone]. Airam Deuce Glucose [Mass/Vol] 84 mg/dL Normal 74-106 [facility] Comment on above: Performed By: #### C MP ####[facility] Ziqeceitim7263 [place] [address]Dr. Airam Tripathi Potassium [Moles/Vol] 5.0 mmol/L Normal 3.5-5.1 [facility] Comment on above: Performed By: #### C MP ####[facility] Ggxgmuqcls2601 [place] [address]DrKianna Tripatih Protein [Mass/Vol] 6.9 g/dL Normal 6.4-8.2 [facility] Comment on above: Performed By: #### C MP ####[facility] Gowbhzdddd340[address] [place], [place] [address]Dr. Airam Tripathi Sodium [Moles/Vol] 134 mmol/L Critically low 136-145 Th [facility] Comment on above: Performed By: #### C MP ####[facility] Yhysorszek79[address] [place], [place] [address]DrKianna Tripathi Urea nitrogen [Mass/Vol] 28.0 mg/dL Critically high 7.0-18.0 [facility] Comment on above: Performed By: #### C MP ####[facility] Zdwaknidmm513[address] [place], [place] [address]Dr. Airam Tripathi Urea nitrogen/Creatinine [Mass ratio] 17.9 mg/mg Normal [facility] Comment on above: Performed By: #### C MP ####[facility] Pbtalczizu4[address] [place], [place] [address]Dr. Airam Tripathi OSMOLALITYon 12-24-2021 Osmolality [Osmolality] 287 mosm/kg Normal 275-295 [facility] Comment on above: Performed By: #### O SMO ####[facility] Dydadazynd88[address] [place], [place] [address]DrKianna Tripathi CBC AUTO DIFFon 12-22-2021 BASO # 0.0 103/ul Normal 0.0-0.1 [facility] Comment on above: Performed By: #### C BC ####[facility] Ozdddtacqe225[address] [place], [place] [address]DrKianna Tripathi Basophils/100 WBC (Bld) 0.5 % Normal 0.2-2.0 [facility] Comment on above: Performed By: #### C BC ####[facility] Akhzrlpcbj6[address] [place], [place] [address]Dr. Airam Tripathi EO # 0.4 103/ul Normal 0.0-0.7 [facility] Comment on above: Performed By: #### C BC ####[facility] Grrayrdwyx899[address] [place], [place] [address]Dr. Airam Tripathi Eosinophils/100 WBC (Bld) 6.4 % Normal 0.9-7.0 [facility] Comment on above: Performed By: #### C BC ####[facility] Bemnuliccz998[address] [place], [place] [address]Dr. Airam Tripathi Erythrocyte distribution width (RBC) [Ratio] 13.2 % Normal 11.0-15.0 [facility] Comment on above: Performed By: #### C BC ####[facility] Kaumtyxjxr8711[address] [place], [place] [address]Dr. Airam Tripathi Hematocrit (Bld) [Volume fraction] 32.2 % Critically low 36.0-48.0 [facility] Comment on above: Performed By: #### C BC ####[facility] Mkwuydowgr8974[address] [place], [place] [address]DrKianna Tripathi Hemoglobin (Bld) [Mass/Vol] 10.1 g/dL Critically low 12.0-16.0 [facility] Comment on above: Performed By: #### C BC ####[facility] Psiojwxqze456[address] [place], [place] [address]DrKianna Tripathi IG # 0.03 10e3/ul Normal 0.00-0.03 [facility] Comment on above: Performed By: #### C BC ####[facility] Nbjrdhqdjq14[address] [place], [place] [address]Dr. Airam Tripathi IG % 0.5 % Normal 0.0-0.5 [facility] Comment on above: Performed By: #### C BC ####[facility] Axyemwidea4512[address] [place], [place] [address]DrKianna Tripathi LYMPH # 1.3 103/ul Normal 1.2-3.8 [facility] Comment on above: Performed By: #### C BC ####[facility] Slhdfpisaf2107 [place] [address]Dr. Airam Tripathi Lymphocytes/100 WBC (Bld) 20.5 % Normal 20.5-60.0 [facility] Comment on above: Performed By: #### C BC ####[facility] Oykmepmqdc2554 [place] [address]Dr. Airam Tripathi MANUAL DIFF REQ NO Normal [facility] Comment on above: Performed By: #### C BC ####[facility] Nvvxbtatuo3836 [place] [address]Dr. Airam Tripathi MCH (RBC) [Entitic mass] 30.1 pg Normal 26.7-34.0 [facility] Comment on above: Performed By: #### C BC ####[facility] Wnllahbfbd4918[address] [place], [place] [address]Dr. Airam Tripathi MCHC (RBC) [Mass/Vol] 31.4 g/dL Normal 29.9-35.2 [facility] Comment on above: Performed By: #### C BC ####[facility] Jstgkbbbdu0764[address] [place], [place] [address]DrKianna Tripathi MCV (RBC) [Entitic vol] 95.8 fL Normal 81.0-99.0 [facility] Comment on above: Performed By: #### C BC ####[facility] Yjxnzqelxo[address] [place], [place] [address]Dr. Airam Tripathi MONO # 0.5 103/ul Normal 0.3-0.8 [facility] Comment on above: Performed By: #### C BC ####[facility] Ctuvswvdso9[address] [place], [place] [address]Dr. Airam Tripathi Monocytes/100 WBC (Bld) 7.4 % Normal 1.7-12.0 [facility] Comment on above: Performed By: #### C BC ####[facility] Bnxcybcoxl[address] [place], [place] [address]Dr. Airam Tripathi NEUT # 3.9 103/ul Normal 1.4-6.5 [facility] Comment on above: Performed By: #### C BC ####[facility] Akrgkfokgx7355 [place] [address]Dr. Airam Tripathi Neutrophils/100 WBC (Bld) 64.7 % Normal 43.0-75.0 [facility] Comment on above: Performed By: #### C BC ####[facility] Tiauksubbd0996 [place] [address]Dr. Airam Tripathi Platelet mean volume (Bld) [Entitic vol] 9.2 fL Critically low 9.5-13.5 [facility] Comment on above: Performed By: #### C BC ####[facility] Ptxoltzvhv[address] [place], [place] [address]DrKianna Tripathi PLT 309 103/ul Normal 150-450 [facility] Comment on above: Performed By: #### C BC ####[facility] Ickrszpmec9740 [place] [address]DrKianna Tripathi RBC 3.36 106/ul Critically low 4.20-5.40 [facility] Comment on above: Performed By: #### C BC ####[facility] [facility] Hmbacueemj[address] [place], [place] [address]DrKianna Tripathi WBC 6.1 103/ul Normal 4.0-11.0 [facility] Comment on above: Performed By: #### C BC ####[facility] Qeeuyhbpha366[address] [place], [place] [address]DrKianna Tripathi PROF 14(COMP METB)on 022 Albumin [Mass/Vol] 3.2 g/dL Critically low 3.4-5.0 [facility] Comment on above: Performed By: #### C MP ####[facility] Nsekfyyhia3[address] [place], [place] [address]DrKianna Tripathi Albumin/Globulin [Mass ratio] 1.1 {ratio} Normal [facility] Comment on above: Performed By: #### C MP ####[facility] Svqqalxdwq7[address] [place], [place] [address]DrKianna Tripathi ALP [Catalytic activity/Vol] 123 U/L Critically high 46-116 [facility] Comment on above: Performed By: #### C MP ####[facility] Ywdvxxpvfq27[address] [place] [address]Dr. Airam Tripathi ALT [Catalytic activity/Vol] 26 U/L Normal 14-59 [facility] Comment on above: Performed By: #### C MP ####[facility] Ceirbtvbwq5[address] [place] [address]Dr. Airam Tripathi Anion gap [Moles/Vol] 14.5 mmol/L Normal Th [facility] Comment on above: Performed By: #### C MP ####[facility] Tseheefehv4770[address] [place], [place] [address]Dr. Airam Tripathi AST [Catalytic activity/Vol] 23 U/L Normal 15-37 [facility] Comment on above: Performed By: #### C MP ####[facility] Otnpqrsfzk962[address] [place], [place] [address]Dr. Airam Tripathi Bilirubin [Mass/Vol] 0.3 mg/dL Normal 0.2-1.0 [facility] Comment on above: Performed By: #### C MP ####[facility] Yismvksyps947245 [address] [place], [place] [address]Dr. Airam Tripathi Calcium [Mass/Vol] 8.2 mg/dL Critically low 8.5-10.1 [facility] Comment on above: Performed By: #### C MP ####[facility] Jiporrlsfq3220[address] [place], [place] [address]Dr. Airam Tripathi Chloride [Moles/Vol] 102 mmol/L Normal 98-107 [facility] Comment on above: Performed By: #### C MP ####[facility] Hcttnubjch1744[address] [place], [place] [address]Dr. Airam Tripathi CO2 [Moles/Vol] 23.2 mmol/L Normal 21.0-32.0 [facility] Comment on above: Performed By: #### C MP ####[facility] Obdfphbiga686245 [address] [place], [place] [address]Dr. Airam Deuce Creatinine [Mass/Vol] 1.98 mg/dL Critically high 0.55-1.02 [facility] Comment on above: Performed By: #### C MP ####[facility] Arzuecqxkq9[address] [place] [address]Dr. Selenaneil Deuce EGFR-AF ISRAELI 31 mL/min/1.73m2 Critically low >=60 [facility] Comment on above: Performed By: #### C MP ####[facility] Spjxaysfif5838 [place] [address]Dr. Selenaneil Deuce EGFR-NON AF ISRAELI 26 mL/min/1.73m2 Critically low >=60 [facility] Comment on above: Performed By: #### C MP ####[facility] Cvtntttahy708[address] [place], [place] [address]Dr. Airam Tripathi Globulin (S) [Mass/Vol] 3.0 g/dL Normal [facility] Comment on above: Performed By: #### C MP ####[facility] Tjynpsgiof5498[address] [place], [place] [address]Dr. Airam Tripathi Glucose [Mass/Vol] 131 mg/dL Critically high 74-106 T [facility] Comment on above: Performed By: #### C MP ####[facility] Rivqdioimw032445 [address] [place], [place] [address]Dr. Airam Tripathi Potassium [Moles/Vol] 4.7 mmol/L Normal 3.5-5.1 [facility] Comment on above: Performed By: #### C MP ####[facility] Wlcwhqdpyi965545 [address] [place], [place] [address]Dr. Airam Tripathi Protein [Mass/Vol] 6.2 g/dL Critically low 6.4-8.2 Th [facility] Comment on above: Performed By: #### C MP ####[facility] Rfhuawynaz384[address] [place], [place] [address]Dr. Airam Tripathi Sodium [Moles/Vol] 135 mmol/L Critically low 136-145 Th [facility] Comment on above: Performed By: #### C MP ####[facility] Zeyqafpvzu0737[address] [place], [place] [address]Dr. Airam Tripathi Urea nitrogen [Mass/Vol] 37.0 mg/dL Critically high 7.0-18.0 [facility] Comment on above: Performed By: #### C MP ####[facility] Cgwuxflrjt1838[address] [place], [place] [address]DrKianna Tripathi Urea nitrogen/Creatinine [Mass ratio] 18.7 mg/mg Normal [facility] Comment on above: Performed By: #### C MP ####[facility] Qetrzmxcao90224[address] [place], [place] [address]DrKianna Tripathi OSMOLALITYon 12-18-2021 Osmolality [Osmolality] 271 mosm/kg Critically low 275-295 [facility] Comment on above: Performed By: #### O SMO ####[facility] Axzdgesxxp737[address] [place], [place] [address]Dr. Airam Tripathi CBC AUTO DIFFon 12-16-2021 BASO # 0.0 103/ul Normal 0.0-0.1 [facility] Comment on above: Performed By: #### C BC ####[facility] Gehrrymjir569[address] [place], [place] [address]DrKianna Tripathi Basophils/100 WBC (Bld) 0.6 % Normal 0.2-2.0 [facility] Comment on above: Performed By: #### C BC ####[facility] Degntypeum965[address] [place], [place] [address]DrKianna Tripathi EO # 0.1 103/ul Normal 0.0-0.7 [facility] Comment on above: Performed By: #### C BC ####[facility] Wqvwydqsha[address] [place], [place] [address]DrKianna Tripathi Eosinophils/100 WBC (Bld) 2.1 % Normal 0.9-7.0 [facility] Comment on above: Performed By: #### C BC ####[facility] Shmbglyxnc844345 [address] [place], [place] [address]DrKianna Tripathi Erythrocyte distribution width (RBC) [Ratio] 13.1 % Normal 11.0-15.0 [facility] Comment on above: Performed By: #### C BC ####[facility] Gdhjxtaodg6945[address] [place], [place] [address]Dr. Airam Tripathi Hematocrit (Bld) [Volume fraction] 33.8 % Critically low 36.0-48.0 [facility] Comment on above: Performed By: #### C BC ####[facility] Icjoktcjic9[address] [place] [address]Dr. Airam Tripathi Hemoglobin (Bld) [Mass/Vol] 10.7 g/dL Critically low 12.0-16.0 [facility] Comment on above: Performed By: #### C BC ####[facility] Wsjdftkpkq1423 [place] [address]Dr. Airam Tripathi IG # 0.02 10e3/ul Normal 0.00-0.03 [facility] Comment on above: Performed By: #### C BC ####[facility] Iqglhmhhyj1537[address] [place], [place] [address]Dr. Airam Tripathi IG % 0.3 % Normal 0.0-0.5 [facility] Comment on above: Performed By: #### C BC ####[facility] Oxecqyasxh595[address] [place], [place] [address]DrKianna Tripathi LYMPH # 1.2 103/ul Normal 1.2-3.8 [facility] Comment on above: Performed By: #### C BC ####[facility] Helbkfqbbq1459[address] [place], [place] [address]DrKianna Tripathi Lymphocytes/100 WBC (Bld) 17.3 % Critically low 20.5-60.0 [facility] Comment on above: Performed By: #### C BC ####[facility] Itiheszqkz9808[address] [place], [place] [address]DrKianna Tripathi MANUAL DIFF REQ NO Normal [facility] Comment on above: Performed By: #### C BC ####[facility] Zbzilliubr420045 [address] [place], [place] [address]DrKianna Tripathi MCH (RBC) [Entitic mass] 30.2 pg Normal 26.7-34.0 [facility] Comment on above: Performed By: #### C BC ####[facility] Ustrkeycdj512145 [address] [place], [place] [address]Dr. Airam Tripathi MCHC (RBC) [Mass/Vol] 31.7 g/dL Normal 29.9-35.2 [facility] Comment on above: Performed By: #### C BC ####[facility] Jtrkwihelh0924 [place] [address]Dr. Airam Tripathi MCV (RBC) [Entitic vol] 95.5 fL Normal 81.0-99.0 [facility] Comment on above: Performed By: #### C BC ####[facility] Ofoousjrfg854[address] [place], [place] [address]Dr. Airam Tripathi MONO # 0.5 103/ul Normal 0.3-0.8 [facility] Comment on above: Performed By: #### C BC ####[facility] Eiqmkhaoss708[address] [place], [place] [address]Dr. Airam Tripathi Monocytes/100 WBC (Bld) 6.8 % Normal 1.7-12.0 [facility] Comment on above: Performed By: #### C BC ####[facility] Scrpagzruu8757[address] [place], [place] [address]Dr. Airam Tripathi NEUT # 4.9 103/ul Normal 1.4-6.5 [facility] Comment on above: Performed By: #### C BC ####[facility] Sjcaadoldn0312[address] [place], [place] [address]Dr. Airam Tripathi Neutrophils/100 WBC (Bld) 72.9 % Normal 43.0-75.0 [facility] Comment on above: Performed By: #### C BC ####[facility] Dthywlewqf586[address] [place], [place] [address]Dr. Airam Tripathi Platelet mean volume (Bld) [Entitic vol] 9.0 fL Critically low 9.5-13.5 [facility] Comment on above: Performed By: #### C BC ####[facility] Qpzgzafeql036[address] [place], [place] [address]Dr. Airam Tripathi PLT 297 103/ul Normal 150-450 [facility] Comment on above: Performed By: #### C BC ####[facility] Rurdiozkcy687[address] [place], [place] [address]Dr. Airam Tripathi RBC 3.54 106/ul Critically low 4.20-5.40 [facility] Comment on above: Performed By: #### C BC ####[facility] [address]vdzuphjb[address] [place] [id number]. Airam Tripathi WBC 6.8 103/ul Normal 4.0-11.0 [facility] Comment on above: Performed By: #### C BC ####[facility] Pivwevnmfp1313[address] [place], [place] [address]DrKianna Tripathi PROF 14(COMP METB)on 022 Albumin [Mass/Vol] 3.2 g/dL Critically low 3.4-5.0 [facility] Comment on above: Performed By: #### C MP ####[facility] Roapgkqbgt5454[address] [place], [place] [address]DrKianna Tripathi Albumin/Globulin [Mass ratio] 1.0 {ratio} Normal [facility] Comment on above: Performed By: #### C MP ####[facility] Sknjhkenrh[address] [place], [place] [address]DrKianna Tripathi ALP [Catalytic activity/Vol] 109 U/L Normal 46-116 [facility] Comment on above: Performed By: #### C MP ####[facility] Dxbjusvpnq[address] [place], [place] [address]DrKianna Tripathi ALT [Catalytic activity/Vol] 23 U/L Normal 14-59 [facility] Comment on above: Performed By: #### C MP ####[facility] Gzggfhnhiv186[address] [place], [place] [address]DrKianna Tripathi Anion gap [Moles/Vol] 11.6 mmol/L Normal Th [facility] Comment on above: Performed By: #### C MP ####[facility] Vewqenzkag[address] [place], [place] [address]DrKianna Tripathi AST [Catalytic activity/Vol] 24 U/L Normal 15-37 [facility] Comment on above: Performed By: #### C MP ####[facility] Qwigephzaa026[address] [place], [place] [address]DrKianna Tripathi Bilirubin [Mass/Vol] 0.2 mg/dL Normal 0.2-1.0 [facility] Comment on above: Performed By: #### C MP ####[facility] Bfaxpxarxg6288 [place] [address]Dr. Airam Tripathi Calcium [Mass/Vol] 8.6 mg/dL Normal 8.5-10.1 [facility] Comment on above: Performed By: #### C MP ####[facility] Njhddwfdhi8654[address] [place], [place] [address]Dr. Airam Tripathi Chloride [Moles/Vol] 100 mmol/L Normal 98-107 [facility] Comment on above: Performed By: #### C MP ####[facility] Qugktgmsug3279[address] [place], [place] [address]Dr. Airam Tripathi CO2 [Moles/Vol] 24.7 mmol/L Normal 21.0-32.0 [facility] Comment on above: Performed By: #### C MP ####[facility] Mfgfuxbapa038[address] [place], [place] [address]Dr. Airam Tripathi Creatinine [Mass/Vol] 1.11 mg/dL Critically high 0.55-1.02 [facility] Comment on above: Performed By: #### C MP ####[facility] Pfgxykzdzu300[address] [place], [place] [address]Dr. Airam Tripathi EGFR-AF ISRAELI >60 Normal >=60 [facility] Comment on above: Performed By: #### C MP ####[facility] Roukkzjmwl3912[address] [place], [place] [address]Dr. Airam Deuce EGFR-NON AF ISRA[place]I 50 mL/min/1.73m2 Critically low >=60 [facility] Comment on above: Performed By: #### C MP ####[facility] Tpfkkzmcwz539[address] [place], [place] [address]Dr. Airam Deuce Globulin (S) [Mass/Vol] 3.1 g/dL Normal [facility] Comment on above: Performed By: #### C MP ####[facility] Uiqbxewdop526[address] [place], [place] [address]Dr. Airam Tripathi Glucose [Mass/Vol] 79 mg/dL Normal 74-106 [facility] Comment on above: Performed By: #### C MP ####[facility] Uufmvvwcsg8305 [place] [address]Dr. Airam Tripathi Potassium [Moles/Vol] 5.3 mmol/L Critically high 3.5-5.1 [facility] Comment on above: Performed By: #### C MP ####[facility] Bfcrrolnhk6327[address] [place], [place] [address]Dr. Airam Tripathi Protein [Mass/Vol] 6.3 g/dL Critically low 6.4-8.2 Th [facility] Comment on above: Performed By: #### C MP ####[facility] Dszvynlfbz649[address] [place], [place] [address]Dr. Airam Tripathi Sodium [Moles/Vol] 131 mmol/L Critically low 136-145 Th [facility] Comment on above: Performed By: #### C MP ####[facility] Lvphktciiz069[address] [place], [place] [address]DrKianna Tripathi Urea nitrogen [Mass/Vol] 20.0 mg/dL Critically high 7.0-18.0 [facility] Comment on above: Performed By: #### C MP ####[facility] Rnankzuwqx5617[address] [place], [place] [address]Dr. Airam Tripathi Urea nitrogen/Creatinine [Mass ratio] 18.0 mg/mg Normal [facility] Comment on above: Performed By: #### C MP ####[facility] Hdmneczpmd3469[address] [place], [place] [address]DrKianna Tripathi OSMOLALITYon 12-09-2021 Osmolality [Osmolality] 279 mosm/kg Normal 275-295 [facility] Comment on above: Performed By: #### O SMO ####[facility] Azxxerbnlh975[address] [place], [place] [address]DrKianna Tripathi CBC AUTO DIFFon 12-07-2021 BASO # 0.0 103/ul Normal 0.0-0.1 [facility] Comment on above: Performed By: #### C BC ####[facility] Syrlzdqvof17[address] [place], [place] [address]DrKianna Tripathi Basophils/100 WBC (Bld) 0.5 % Normal 0.2-2.0 [facility] Comment on above: Performed By: #### C BC ####[facility] Uyyaxbyvkt5080[address] [place], [place] [address]Dr. Airam Tripathi EO # 0.4 103/ul Normal 0.0-0.7 [facility] Comment on above: Performed By: #### C BC ####[facility] Rcnhcvtcbk9084[address] [place], [place] [address]Dr. Airam Tripathi Eosinophils/100 WBC (Bld) 6.3 % Normal 0.9-7.0 [facility] Comment on above: Performed By: #### C BC ####[facility] Sstltrtwvt4654[address] [place], [place] [address]Dr. Airam Tripathi Erythrocyte distribution width (RBC) [Ratio] 13.3 % Normal 11.0-15.0 [facility] Comment on above: Performed By: #### C BC ####[facility] Qashicpcca110[address] [place], [place] [address]Dr. Airam Tripathi Hematocrit (Bld) [Volume fraction] 29.5 % Critically low 36.0-48.0 [facility] Comment on above: Performed By: #### C BC ####[facility] Tdwksxzmif067[address] [place], [place] [address]Dr. Airam Tripathi Hemoglobin (Bld) [Mass/Vol] 9.1 g/dL Critically low 12.0-16.0 [facility] Comment on above: Performed By: #### C BC ####[facility] Gwbihftgqv[address] [place], [place] [address]Dr. Airam Tripathi IG # 0.04 10e3/ul Critically high 0.00-0.03 [facility] Comment on above: Performed By: #### C BC ####[facility] Geiroplifk[address] [place], [place] [address]Dr. Airam Tripathi IG % 0.7 % Critically high 0.0-0.5 [facility] Comment on above: Performed By: #### C BC ####[facility] Xrntjexexf[address] [place], [place] [address]Dr. Airam Tripathi LYMPH # 1.3 103/ul Normal 1.2-3.8 [facility] Comment on above: Performed By: #### C BC ####[facility] Slqzrakawv[address] [place] [address]Dr. Airam Tripathi Lymphocytes/100 WBC (Bld) 20.9 % Normal 20.5-60.0 [facility] Comment on above: Performed By: #### C BC ####[facility] M[address]gfslrij3[address] [place] [address]Dr. Airam Tripathi MANUAL DIFF REQ NO Normal [facility] Comment on above: Performed By: #### C BC ####[facility] Kgejzbgilt77[address] [place] [address]Dr. Airam Tripathi MCH (RBC) [Entitic mass] 30.1 pg Normal 26.7-34.0 [facility] Comment on above: Performed By: #### C BC ####[facility] Rdudpahjuo5758 [place] [address]Dr. Airam Tripathi MCHC (RBC) [Mass/Vol] 30.8 g/dL Normal 29.9-35.2 [facility] Comment on above: Performed By: #### C BC ####[facility] Pshzerkzbx0072 [place] [address]Dr. Airam Tripathi MCV (RBC) [Entitic vol] 97.7 fL Normal 81.0-99.0 [facility] Comment on above: Performed By: #### C BC ####[facility] Jeeagxrscu69[address] [place] [address]Dr. Airam Tripathi MONO # 0.4 103/ul Normal 0.3-0.8 [facility] Comment on above: Performed By: #### C BC ####[facility] Aahqxueggk6604 [place] [address]Dr. Airam Tripathi Monocytes/100 WBC (Bld) 6.6 % Normal 1.7-12.0 [facility] Comment on above: Performed By: #### C BC ####[facility] Snkhsqietr8069 [place] [address]Dr. Airam Tripathi NEUT # 4.0 103/ul Normal 1.4-6.5 [facility] Comment on above: Performed By: #### C BC ####[facility] Yrfbvofdru9970 [place] [id number] Airam Tripathi Neutrophils/100 WBC (Bld) 65.0 % Normal 43.0-75.0 [facility] Comment on above: Performed By: #### C BC ####[facility] Cqphfrmyhj3867 [place] [address]Dr. Airam Deuce Platelet mean volume (Bld) [Entitic vol] 9.4 fL Critically low 9.5-13.5 [facility] Comment on above: Performed By: #### C BC ####[facility] Oszelnatuf[address] [place] [address]Dr. Selenaneil Deuce PLT 224 103/ul Normal 150-450 [facility] Comment on above: Performed By: #### C BC ####[facility] Bwtpjmikns1378 [place] [address]Dr. Selenaneil Deuce RBC 3.02 106/ul Critically low 4.20-5.40 [facility] Comment on above: Performed By: #### C BC ####[facility] Tljfwewclm[address] [place], [place] [address]DrKianna Airam Deuce WBC 6.1 103/ul Normal 4.0-11.0 [facility] Comment on above: Performed By: #### C BC ####[facility] Iddctmahrf9561 [place] [address]DrKianna Tripathi PROF 14(COMP METB)on 022 Albumin [Mass/Vol] 2.8 g/dL Critically low 3.4-5.0 [facility] Comment on above: Performed By: #### C MP ####[facility] Ncfvurogsw[address]17[address] [place], [place] [address]DrKianna Tripathi Albumin/Globulin [Mass ratio] 1.1 {ratio} Normal [facility] Comment on above: Performed By: #### C MP ####[facility] Sxqwhrpkst7540[address] [place], [place] [address]Dr. Airam Tripathi ALP [Catalytic activity/Vol] 116 U/L Normal 46-116 [facility] Comment on above: Performed By: #### C MP ####[facility] Brzskrllik48[address] [place] [address]Dr. Airam Tripathi ALT [Catalytic activity/Vol] 23 U/L Normal 14-59 [facility] Comment on above: Performed By: #### C MP ####[facility] Hwahuanicd64[address] [place], [place] [address]Dr. Airam Deuce Anion gap [Moles/Vol] 12.1 mmol/L Normal Th [facility] Comment on above: Performed By: #### C MP ####[facility] Yksaseeiby7723[address] [place], [place] [address]Dr. Airam Deuce AST [Catalytic activity/Vol] 23 U/L Normal 15-37 [facility] Comment on above: Performed By: #### C MP ####[facility] Wdgjcjrssm8[address] [place], [place] [address]Dr. Airam Deuce Bilirubin [Mass/Vol] 0.2 mg/dL Normal 0.2-1.0 [facility] Comment on above: Performed By: #### C MP ####[facility] Ledqnlqyuu7837[address] [place], [place] [address]Dr. Airam Deuce Calcium [Mass/Vol] 8.1 mg/dL Critically low 8.5-10.1 [facility] Comment on above: Performed By: #### C MP ####[facility] Msosxwfwcr360[address] [place], [place] [address]Dr. Airam Deuce Chloride [Moles/Vol] 105 mmol/L Normal 98-107 [facility] Comment on above: Performed By: #### C MP ####[facility] Vpyarldkmm4[address] [place], [place] [address]Dr. Airam Tripathi CO2 [Moles/Vol] 22.1 mmol/L Normal 21.0-32.0 [facility] Comment on above: Performed By: #### C MP ####[facility] Wqmdinoxhl339[address] [place], [place] [address]Dr. Airam Tripathi Creatinine [Mass/Vol] 1.06 mg/dL Critically high 0.55-1.02 [facility] Comment on above: Performed By: #### C MP ####[facility] Iwipovrfmt[address] [place] [address]Dr. Selenaneil Deuce EGFR-AF ISRAELI >60 Normal >=60 [facility] Comment on above: Performed By: #### C MP ####[facility] Npjmfmcaue5880 [place] [address]Dr. Airam Tripathi EGFR-NON AF ISRAELI 53 mL/min/1.73m2 Critically low >=60 [facility] Comment on above: Performed By: #### C MP ####[facility] [address] [place], [place] [address]Dr. Airam Tripathi Globulin (S) [Mass/Vol] 2.6 g/dL Normal [facility] Comment on above: Performed By: #### C MP ####[facility] [address] [place], [place] [address]Dr. Airam Tripathi Glucose [Mass/Vol] 109 mg/dL Critically high 74-106 T [facility] Comment on above: Performed By: #### C MP ####[facility] [address] [place], [place] [address]Dr. Airam Tripathi Potassium [Moles/Vol] 4.2 mmol/L Normal 3.5-5.1 [facility] Comment on above: Performed By: #### C MP ####[facility] [address] [place], [place] [address]Dr. Airam Tripathi Protein [Mass/Vol] 5.4 g/dL Critically low 6.4-8.2 Th [facility] Comment on above: Performed By: #### C MP ####[facility] [address] [place], [place] [address]Dr. Airam Tripathi Sodium [Moles/Vol] 135 mmol/L Critically low 136-145 Th [facility] Comment on above: Performed By: #### C MP ####[facility] [address] [place], [place] [address]Dr. Airam Tripathi Urea nitrogen [Mass/Vol] 15.0 mg/dL Normal 7.0-18.0 [facility] Comment on above: Performed By: #### C MP ####[facility] [address] [place], [place] [address]EmKianna Tripathi Urea nitrogen/Creatinine [Mass ratio] 14.2 mg/mg Normal [facility] Comment on above: Performed By: #### C MP ####[facility] [address] [place], [place] [address]AzKianna Tripathi Operative Reporton Operative Report MR#: [id number] [facility] Pt. Name: Mabel Moser Room #: [...] subscapularis. 3. Right shoulder proximal biceps tenotomy. [employer] SUPERVISOR: Alex Serra M.D. ANESTHESIA: General. INDICATIONS: The [...] Ivy/Carlos Reza M.D. Date Trans: 08/19/2021 11:37 A/mmo [id number] cc: Yuri Santana M.D. [place] [id number] [facility] [place] [id number] Normal [facility] POC GLUCOSE LABon 08-19-2021 Glucose [Mass/Vol] 77 mg/dL Normal 70-100 [facility] [place] [facility] Comment on above: Performed By: #### [id number] #### [facility] [address] [place], [place] [id number] [place] [address] 04-05-2021 CNPN Telephone (HEMASA) -- MABEL MOSER ([id number]) 1960 F Date Time Provider Department 04/05/21 YEVGENIY FORD During your visit today, we recorded the following information about you: Chana Gallegos [facility] 04/05/2021 7:57 AM Signed Records faxed to the cancer center at [facility]. Patient to follow with Dr. [...] Status:Closed by CHANA LEE on 04/05/21 Normal [facility] OBSOLETEon 01-11-2021 OBSOLETE Refill (HEMASA) -- MABEL MOSER ([id number]) 1960 F Date Time Provider Department 01/11/21 [...] Status:Closed by YEVGENIY FORD on 01/12/21 Normal [facility] Vital Signs Date Time Vital Sign Value Performing Clinician Facility 01-14-2025 11:06-0400 Body height 157.48 cm Yuri Santana MD Work Phone: [facility] 01-14-2025 11:06-0400 Body mass index (BMI) [Ratio] 35.5 kg/m2 Yuri Santana MD Work Phone: [facility] 01-14-2025 11:06-0400 Body weight 88.22 kg Yuri Santana MD Work Phone: [facility] 01-14-2025 11:06-0400 Diastolic blood pressure 92 mm[Hg] Yuri Santana MD Work Phone: [facility] 01-14-2025 11:06-0400 Heart rate 79 /min Yuri Santana MD Work Phone: [facility] 01-14-2025 11:06-0400 Respiratory rate 16 /min Yuri Santana MD Work Phone: [facility] 01-14-2025 11:06-0400 SaO2% (BldA) [Mass fraction] 98 % Yuri Santana MD Work Phone: [facility] 01-14-2025 11:06-0400 Systolic blood pressure 125 mm[Hg] Yuri Santana MD Work Phone: [facility] 10-02-2024 14:44-0400 Body height 157.48 cm [facility] 10-02-2024 14:44-0400 Body mass index (BMI) [Ratio] 42.2 kg/m2 [facility] 10-02-2024 14:44-0400 Body weight 104.77 kg [facility] 10-02-2024 14:44-0400 Diastolic blood pressure 75 mm[Hg] [facility] 10-02-2024 14:44-0400 Heart rate 76 /min [facility] 10-02-2024 14:44-0400 Respiratory rate 16 /min [facility] 10-02-2024 14:44-0400 SaO2% (BldA) [Mass fraction] 100 % [facility] 10-02-2024 14:44-0400 Systolic blood pressure 122 mm[Hg] [facility] 03-26-2024 11:47-0400 Body mass index (BMI) [Ratio] 41.1 kg/m2 [facility] 03-26-2024 11:47-0400 Diastolic blood pressure 77 mm[Hg] [facility] 03-26-2024 11:47-0400 Heart rate 81 /min [facility] 03-26-2024 11:47-0400 Respiratory rate 18 /min [facility] 03-26-2024 11:47-0400 SaO2% (BldA) [Mass fraction] 92 % [facility] 03-26-2024 11:47-0400 Systolic blood pressure 140 mm[Hg] [facility] 03-26-2024 08:52-0400 Body height 157.48 cm [facility] 03-26-2024 08:52-0400 Body temperature 98.1 [degF] [facility] 03-26-2024 08:52-0400 Body weight 102.05 kg [facility] 03-05-2024 13:52-0400 Blood Pressure Location Migel NILL [facility] 03-05-2024 13:52-0400 Diastolic blood pressure 80 mm[Hg] Migel NILL [facility] 03-05-2024 13:52-0400 Heart rate 77 /min Migel NILL [facility] 03-05-2024 13:52-0400 Respiratory rate 16 /min Migel NILL [facility] 03-05-2024 13:52-0400 Systolic blood pressure 116 mm[Hg] Migel NILL [facility] 07-03-2023 12:00-0500 Body temperature 97.9 [degF] MD Yuri Santana Work Phone: [facility] 07-03-2023 12:00-0500 Diastolic blood pressure 71 mm[Hg] MD Yuri Santana Work Phone: [facility] 07-03-2023 12:00-0500 Heart rate 68 /min MD Yuri Santana Work Phone: [facility] 07-03-2023 12:00-0500 Respiratory rate 16 /min MD Yuri Santana Work Phone: [facility] 07-03-2023 12:00-0500 SaO2% (BldA) [Mass fraction] 100 % MD Yuri Santana Work Phone: [facility] 07-03-2023 12:00-0500 Systolic blood pressure 121 mm[Hg] MD Yuri Santana Work Phone: [facility] 07-03-2023 04:49-0500 Body weight 85.8 kg MD Yuri Santana Work Phone: [facility] 06-30-2023 14:44-0500 Body height 157.48 cm MD Yuri Santana Work Phone: [facility] 04-04-2023 16:20-0400 Body height 158.75 cm Raeann Tads Other [facility] Other 04-04-2023 16:20-0400 Body mass index (BMI) [Ratio] 31.46 kg/m2 Azariel Mishras Other [facility] Other 04-04-2023 16:20-0400 Body temperature 98 [degF] Raeann Mishras Other [facility] Other 04-04-2023 16:20-0400 Body weight 79.29 kg Azariel Mishras Other [facility] Other 04-04-2023 16:20-0400 Diastolic blood pressure 81 mm[Hg] Azariel Mishras Other [facility] Other 04-04-2023 16:20-0400 Respiratory rate 18 /min Azariel Mishras Other [facility] Other 04-04-2023 16:20-0400 SaO2% (BldA) [Mass fraction] 98 % Azariel Harrisonhous Other [facility] Other 04-04-2023 16:20-0400 Systolic blood pressure 133 mm[Hg] Azariel Bakhous Other [facility] Other 10-28-2022 22:23-0400 Body temperature 97.4 [degF] MD Yuri Santana Work Phone: [facility] 10-28-2022 22:00-0400 Diastolic blood pressure 74 mm[Hg] MD Yuri Santana Work Phone: [facility] 10-28-2022 22:00-0400 Heart rate 72 /min MD Yuri Santana Work Phone: [facility] 10-28-2022 22:00-0400 Respiratory rate 20 /min MD Yuri Santana Work Phone: [facility] 10-28-2022 22:00-0400 SaO2% (BldA) [Mass fraction] 97 % MD Yuri Santana Work Phone: [facility] 10-28-2022 22:00-0400 Systolic blood pressure 169 mm[Hg] MD Yuri Santana Work Phone: [facility] 10-28-2022 17:54-0400 Body height 157.48 cm MD Yuri Santana Work Phone: [facility] 10-28-2022 17:54-0400 Body weight 83.7 kg MD Yuri Santana Work Phone: [facility] 09-27-2022 12:00-0400 Body height 158.75 cm Raeann Kirkpatrick Other [facility] Other 09-27-2022 12:00-0400 Body mass index (BMI) [Ratio] 31.78 kg/m2 Raeann PlayBuzzcristin Other [facility] Other 09-27-2022 12:00-0400 Body temperature 96.1 [degF] Raeann Kirkpatrick Other [facility] Other 09-27-2022 12:00-0400 Body weight 80.11 kg Donnieariel Mishras Other [facility] Other 09-27-2022 12:00-0400 Diastolic blood pressure 82 mm[Hg] Aziz Bakhous Other [facility] Other 09-27-2022 12:00-0400 Respiratory rate 18 /min Raeann Mishras Other [facility] Other 09-27-2022 12:00-0400 SaO2% (BldA) [Mass fraction] 99 % Raeann Mishras Other [facility] Other 09-27-2022 12:00-0400 Systolic blood pressure 140 mm[Hg] Azariel Mishras Other [facility] Other 04-12-2022 14:00-0400 Body height 158.75 cm Raeann Mishras Other [facility] Other 04-12-2022 14:00-0400 Body mass index (BMI) [Ratio] 30.13 kg/m2 Raeann Mishras Other [facility] Other 04-12-2022 14:00-0400 Body temperature 97.6 [degF] Azariel Harrisonhous Other [facility] Other 04-12-2022 14:00-0400 Body weight 75.93 kg Azariel Bakhous Other [facility] Other 04-12-2022 14:00-0400 Diastolic blood pressure 95 mm[Hg] Aziz Bakhous Other [facility] Other 04-12-2022 14:00-0400 Respiratory rate 18 /min Raeann Kirkpatrick Other [facility] Other 04-12-2022 14:00-0400 SaO2% (BldA) [Mass fraction] 98 % Raeann Kirkpatrick Other [facility] Other 04-12-2022 14:00-0400 Systolic blood pressure 175 mm[Hg] Raeann Kirkpatrick Other [facility] Other 06-16-2021 16:20-0500 Body height 158.75 cm [place] Other [facility] Other 06-16-2021 16:20-0500 Body mass index (BMI) [Ratio] 30.88 kg/m2 Los R[place]erald Other [facility] Other 06-16-2021 16:20-0500 Body temperature 96.4 [degF] [facility] Other [facility] Other 06-16-2021 16:20-0500 Body weight 77.84 kg Los Rasc[facility]erald Other [facility] Other 06-16-2021 16:20-0500 Diastolic blood pressure 88 mm[Hg] Los Praveena Other [facility] Other 06-16-2021 16:20-0500 Respiratory rate 18 /min Los Praveena Other [facility] Other 06-16-2021 16:20-0500 SaO2% (BldA) [Mass fraction] 99 % [place] Other [facility] Other 06-16-2021 16:20-0500 Systolic blood pressure 137 mm[Hg] [place] Other [facility] Other Encounters Encounter Date Encounter Type Care Provider Facility Start: 02-10-2025 End: 02-10-2025 ambulatory Riki Smith MD Facility:[facility] Start: 01-14-2025 End: 01-14-2025 ambulatory Yuri Santana MD Work Phone: [facility] Work Phone: Start: 01-14-2025 End: 01-14-2025 Patient encounter procedure Raeann Kirkpatrick MD -[facility] Work Phone: Start: 01-02-2025 Non-patient / Non-visit Raeann Kirkpatrick MD -[facility] Work Phone: Start: 12-09-2024 End: 12-09-2024 ambulatory Riki Smith MD Facility:[facility] Start: 10-11-2024 End: 10-11-2024 ambulatory [facility] Start: 10-07-2024 End: 10-07-2024 ambulatory Riki Smith MD Facility:[facility] Start: 10-02-2024 End: 10-02-2024 ambulatory [facility] Work Phone: Start: 10-02-2024 End: 10-02-2024 Patient encounter procedure [facility] Work Phone: Start: 09-09-2024 End: 09-09-2024 ambulatory [facility] Start: 09-09-2024 End: 09-09-2024 ambulatory [facility] Start: 08-08-2024 End: 08-08-2024 ambulatory [facility] Start: 07-18-2024 Non-patient / Non-visit [facility] Work Phone: Start: 05-31-2024 ambulatory [facility] Start: 04-29-2024 ambulatory [facility] Start: 04-17-2024 ambulatory [facility] Start: 03-27-2024 End: 03-27-2024 ambulatory [facility] Start: 03-26-2024 End: 03-26-2024 ambulatory [facility] Work Phone: Start: 03-26-2024 End: 03-26-2024 Patient encounter procedure [facility] Work Phone: Start: 03-05-2024 End: 03-05-2024 ambulatory Migel MCKINNEY Facility:[facility] Start: 03-05-2024 End: 03-05-2024 Patient encounter procedure Migel MCKINNEY [facility] Start: 01-22-2024 End: 01-30-2024 Evaluation and management [facility] Start: 12-21-2023 End: 12-21-2023 ambulatory [facility] Start: 10-13-2023 ambulatory [facility] Start: 09-30-2023 End: 10-01-2023 Evaluation and management of inpatient MERE OSULLIVAN [facility] Start: 07-11-2023 End: 07-11-2023 ambulatory Raeann Kirkpatrick Other [facility] Other Start: 07-11-2023 Telephone encounter Raeann Kirkpatrick [facility] Start: 06-29-2023 End: 07-03-2023 Evaluation and management of inpatient Jim Randhawa Facility:[facility] Start: 06-29-2023 End: 07-03-2023 Evaluation and management of inpatient MD Yuri Santana Work Phone: [facility] Work Phone: Start: 04-04-2023 End: 04-04-2023 ambulatory Aziz Bakhous Other [facility] Other Start: 04-04-2023 Office outpatient visit 25 minutes Aziz Bakhous [facility] Start: 04-03-2023 End: 04-03-2023 ambulatory Aziz Bakhous Other [facility] Other Start: 04-03-2023 Telephone encounter Aziz Bakhous [facility] Start: 12-12-2022 End: 12-12-2022 ambulatory Aziz Bakhous Other [facility] Other Start: 12-12-2022 Telephone encounter Aziz Bakhous [facility] Start: 12-08-2022 End: 12-08-2022 ambulatory Aziz Bakhous Other [facility] Other Start: 12-08-2022 Telephone encounter Aziz Bakhous [facility] Start: 11-22-2022 End: 11-22-[address] YURI SANTANA . Facility:[facility] Start: 11-22-2022 End: 11-22-2022 ambulatory NARENDRANATH LAKSHMIPATHY . Facility:[facility] Start: 11-16-2022 End: 11-16-[address] YURI SANTANA . Facility:[facility] Start: 11-04-2022 End: 11-05-2022 ambulatory NARENDRANATH LAKSHMIPATHY . Facility:[facility] Start: 11-03-2022 End: 11-03-[address] YURI SANTANA . Facility:[facility] Start: 10-31-2022 ambulatory SANTOS Hutchison Facili ty:[facility] Start: 10-28-2022 End: 10-29-2022 Emergency department patient visit Favian Helm Facility:[facility] Start: 10-28-2022 End: 10-28-2022 Emergency department patient visit MD Yuri Santana Work Phone: [facility] Work Phone: Start: 10-27-2022 End: [...] 09-27-2022 End: 09-27-2022 ambulatory Raeann Kirkpatrick Other [facility] Other Start: 09-27-2022 Office outpatient visit 25 [...] 08-23-2022 End: 08-23-2022 ambulatory Sue Leiva Other [facility] Other Start: 08-23-2022 Office outpatient ne w 30 minutes Sue Leiva [facility] Start: 08-16-2022 End: 08-17-[address] [...] 04-12-2022 End: 04-12-2022 ambulatory Raeann Kirkpatrick Other [facility] Other Start: 04-12-2022 Office outpatient visit 25 minutes Raeann Kirkpatrick [facility] Start: 04-06-[address] YURI SANTANA . [...] Start: 01-10-2022 End: 01-11-2022 ambulatory Robert Johnston Facility:[facility] Start: 01-06-2022 End: 01-07-[address] YURI SANTANA . Facility:[facility] Start: 12-30-2021 End: 01-19-[address] YURI SANTANA . Facility:[facility] Start: 12-23-2021 End: 12-24-2021 ambulatory NNAMDI DEJESUS . Facility:[facility] Start: 12-07-2021 End: 12-22-[address] YURI SANTANA . Facility:[facility] Start: 12-07-2021 End: 12-07-[address] YURI SANTANA . Facility:[facility] Start: 08-19-2021 End: 08-20-2021 ambulatory CARLOS REZA Facility:[facility] Start: 06-16-2021 End: 06-16-2021 ambulatory [place] Other [facility] Other Start: 06-16-2021 Office outpatient visit 25 minutes [place] [facility] Start: 01-14-2019 End: 01-14-2019 Patient encounter procedure [facility] Start: 12-03-2018 End: 12-03-2018 Patient encounter procedure [facility] Procedures Date Procedure Procedure Detail Performing Clinician Start: 10-28-2022 CT of head without contrast MD Yuri Santana Work Phone: Start: 10-28-2022 Plain chest X-ray MD Romero Work Phone: Start: 09-24-2022 Insertion of implant able venous access port Migel AHUMADAL Start: 01-14-2019 DISCHARGE PATIENT NIRMAL LEWIS Start: [...] knee Migel NILL Cardiac catheterization Jorge dubon BRANDYNL Cervical arthrodesis Migel NILL Cervical laminectomy Migel NILL Cholecystectomy Migel NILL Removal of implantab le venous access port Migel NILL Repair of musculoten dinous cuff of shoulder Migel NILL Plan of Treatment Date Care Activity Detail Author Start: 07-03-[address] [facility] Start: 06-29-2023 Hospital admission [facility] Start: 06-29-2023 Referral to activity leader [facility] Blood chemistry [facility] Patient Education [facility] Work Phone: Patient referral [facility] Work Phone: Renal function 1999 panel - Serum or Plasma [facility] Renal function 1999 panel - Serum or Plasma [facility] Renal function 1999 panel - Serum or Plasma [facility] Immunizations Immunization Date Immunization Notes Care Provider Fa cility 03-11-2023 influenza virus vaccine, unspecified formulation Migel BRANDYNL [facility] 04-07-2022 SARS-CoV-2 (COVID-19 ) [id number] Migel BRANDYNL [facility] 09-24-2020 SARS-CoV-2 (COVID-19 ) mRNA-1273 vaccine Migel AHUMADAL [facility] Comment on above: Result Comment: 2023: [id number] 08-27-2020 SARS-CoV-2 (COVID-19 ) mRNA-1273 vaccine Migel AHUMADAL [facility] 05-18-2011 pneumococcal conjuga te vaccine, 13 valent Migel BRANDYNL [facility] NEGATED: Highlighted row has not occurred!09-16-2020 influenza virus vaccine, unspecified formulation Migel NILL [facility] Payers Date Payer Category Payer Medicaid 2024 Medicare 2023 Medicare [id number] 2022 Self-pay [id number] 2017 Medicare [id number] 2017 Unknown [id number] 1960 Unknown [id number] 2.16.8 40.1.675571.3.579.2.173 1962 Unknown [id number] 2.16.8 40.1.020566.3.579.2.173 1960 Unknown [id number] 2.16.8 40.1.241066.3.579.2.647 1960 Unknown [id number] 2.16.8 40.1.043124.3.579.2.647 1960 Unknown [id number] 2.16.84 0.1.677725.3.579.2.593 1962 Unknown [id number] 2.16.84 0.1.576564.3.579.2.593 1962 Unknown [id number] 2.16.84 0.1.904624.3.579.2.593 1962 Unknown [id number] 2.16.84 0.1.803326.3.579.2.593 1962 Unknown [id number] 2.16.84 0.1.193435.3.579.2.593 1962 Unknown [id number] 2.16.84 0.1.706491.3.579.2.593 1962 Unknown [id number] 2.16.84 0.1.509054.3.579.2.593 1962 Unknown [id number] 2.16.84 0.1.028828.3.579.2.593 1962 Unknown [id number] 2.16.84 0.1.653056.3.579.2.593 1962 Unknown [id number] 2.16.84 0.1.709496.3.579.2.593 1962 Unknown [id number] 2.16.84 0.1.507401.3.579.2.593 1962 Unknown [id number] 2.16.84 0.1.128784.3.579.2.593 1962 Unknown [id number] 2.16.84 0.1.530911.3.579.2.593 1962 Unknown [id number] 2.16.84 0.1.287965.3.579.2.593 1962 Unknown [id number] 2.16.84 0.1.358962.3.579.2.593 1962 Unknown [id number] 2.16.84 0.1.518888.3.579.2.593 1962 Unknown [id number] 2.16.84 0.1.616710.3.579.2.593 1962 Unknown [id number] 2.16.84 0.1.665112.3.579.2.593 1962 Unknown [id number] 2.16.84 0.1.038704.3.579.2.593 1962 Unknown [id number] 2.16.84 0.1.603808.3.579.2.593 1962 Unknown [id number] 2.16.84 0.1.600699.3.579.2.593 1962 Unknown [id number] 2.16.84 0.1.770135.3.579.2.593 1962 Unknown [id number] 2.16.84 0.1.353268.3.579.2.593 1962 Unknown [id number] 2.16.84 0.1.626219.3.579.2.593 1962 Unknown [id number] 2.16.84 0.1.121751.3.579.2.593 1962 Unknown [id number] 2.16.84 0.1.736413.3.579.2.593 1962 Unknown [id number] 2.16.84 0.1.205947.3.579.2.593 1962 Unknown [id number] 2.16.84 0.1.705437.3.579.2.593 1962 Unknown [id number] 2.16.84 0.1.156384.3.579.2.593 1962 Unknown [id number] 2.16.84 0.1.996345.3.579.2.593 1962 Unknown [id number] 2.16.84 0.1.686892.3.579.2.593 1962 Unknown [id number] 2.16.84 0.1.547436.3.579.2.593 1962 Unknown [id number] 2.16.84 0.1.491021.3.579.2.593 1962 Unknown [id number] 2.16.84 0.1.014338.3.579.2.593 1962 Unknown [id number] 2.16.84 0.1.104533.3.579.2.593 1962 Unknown [id number] 2.16.84 0.1.016096.3.579.2.593 1962 Unknown [id number] 2.16.84 0.1.359254.3.579.2.593 1962 Unknown [id number] 2.16.84 0.1.076853.3.579.2.593 1962 Unknown [id number] 2.16.84 0.1.576736.3.579.2.593 1962 Unknown [id number] 2.16.84 0.1.552982.3.579.2.593 1962 Unknown [id number] 2.16.84 0.1.442730.3.579.2.593 1962 Unknown [id number] 2.16.84 0.1.008717.3.579.2.593 1962 Unknown [id number] 2.16.84 0.1.219328.3.579.2.593 1962 Unknown [id number] 2.16.84 0.1.163650.3.579.2.593 1962 Unknown [id number] 2.16.84 0.1.901007.3.579.2.593 1962 Unknown [id number] 2.16.84 0.1.794862.3.579.2.593 1962 Unknown [id number] 2.16.8 40.1.973653.3.579.2.1286 1962 Unknown [id number] 2.16.8 40.1.816518.3.579.2.727 1962 Unknown [id number] 2.16. 840.1.698424.3.579.2.175 1962 Unknown [id number] 2.16. 840.1.613461.3.579.2.175 1962 Unknown [id number] 2.16.8 40.1.805527.3.579.2.1286 1962 Unknown [id number] 2.16.8 40.1.906865.3.579.2.1286 1962 Unknown [id number] 2.16.8 40.1.250800.3.579.2.1286 1962 Unknown [id number] 2.16.8 40.1.826060.3.579.2.1286 1962 Unknown [id number] 2.16. 840.1.628974.3.579.2.196 1962 Unknown [id number] 2.16. 840.1.233382.3.579.2.196 1962 Unknown [id number] 2.16. 840.1.562540.3.579.2.196 1959 Medicaid [id number] Unknown [id number] 2.1 6.840.1.074284.19 Unknown Aron BC/BS [id number] Unknown [id number] 2.16.8 40.1.081456.3.579.2.531 Unknown [id number] 2.16.8 40.1.698320.3.579.2.531 Social History Date Type Detail Facility Unknown if ever smoked [facility] Other Sex Assigned At [facility] Start: 10-28-2022 End: 03-26-2024 Tobacco smoking status NHIS Never smoked tobacco (finding) [facility] Start: 1960 Sex Assigned At Female F [facility] Tobacco smoking status Never [facility] Start: 10-02-2024 Sex Female (finding) [facility] Goals Date Patient Goal Desired Activity /State Functional Status Date Assessment Result Facility 03-05-2024 Functional Status N/A [facility] 07-03-2023 Functional status Patient at Baseline [facility] Work Phone: Mental Status Date Assessment Result Facility 07-03-2023 Cognitive function Cognitive Sta tus Patient at Baseline [facility] Work Phone: Clinical Notes 06-16-2021 to 10-11-2024 Note Date & Type Note Facility 10-11-2024 Note [facility] Subjective Mabel Moser is a 64 y.o. year old female patient being seen for 6 month follow up . Patient states she saw the Delineator last week and he took her off [...] Bilateral hearing loss Chronic obstructive pulmonary disease ([facility]) Chronic kidney disease Closed fracture of trochanter of femur ([facility]) Clostridium difficile colitis Coronary arteriosclerosis Diffuse thyroid 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 thyrotoxicosis Fluid overload Dehydration Cortical age-related cataract of left eye COVID-19 Displacement of lumbar intervertebral disc without myelopathy Edema of lower extremity Edema Orthopnea Dyspnea Endogenous obesity Neuropathy ACC/AHA stage C heart failure with preserved ejection fraction ([facility]) H/O gastric bypass Gouty arthropathy Gastroesophageal reflux disease Full thickness rotator cuff tear Fibromyalgia Low back pain Hip pain Hyperparathyroidism due to renal insufficiency Hypocalcemia Hypertension Hypoglycemia Hyponatremia Hypothyroidism Impingement syndrome of shoulder region Insomnia Anemia due to vitamin B12 deficiency Pulmonary hypertension ([facility]) Other fatigue Osteoarthritis of knee Morbid (severe) obesity due to excess calories ([facility]) Left atrial enlargement Lumbosacral radiculopathy Lumbosacral spondylosis without myelopathy Intractable migraine without status migrainosus Migraine Rheumatic tricuspid valve regurgitation Vitamin D deficiency Tympanic membrane perforation, right Transient ischemic attack Thoracic neuritis Tear of right rotator cuff Swallowing problem Sunburn of second degree Status post tympanoplasty Sprain of shoulder Seizure disorder ([facility]) Polyneuropathy associated with critical illness Polyneuropathy Arthritis Class 3 obesity Lumbar paraspinal muscle spasm Lateral femoral cutaneous neuropathy, left Internal derangement of right shoulder History of total right knee replacement Hemiparesis, left ([facility]) Hemiparesis due to old stroke ([facility]) Difficulty walking Depressive disorder Constipation Abnormal blood chemistry 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 ([facility]) Pre-operative cardiovascular examination Acute on chronic systolic CHF (congestive heart failure) ([facility]) History of stroke Hyperkalemia Hypomagnesemia Metabolic acidosis LEEANN (acute kidney injury) Peripheral vascular disease Acute heart failure ([facility]) Polypharmacy Cerebral artery occlusion with cerebral infarction ([facility]) Chronic congestive heart failure ([facility]) Fall at home, initial encounter Irritable bowel syndrome Restless legs Other displaced dens fracture, sequela Cervical stenosis of spine Compression fracture of C2 vertebra with delayed healing History of Clostridium difficile colitis History of DVT of lower extremity Lymphedema MDD (major depressive disorder), recurrent episode, moderate ([facility]) Mild neurocognitive disorder Osteoporosis Vascular insufficiency Poor [...] In the past she was admitted to [facility] in 2019 with fluid overload [...] and her blood (more content not included)... [facility] 09-09-2024 Note Orthopedic Surgery Visit Description: New [...] Anxiety Arthritis Asthma CHF (congestive heart failure) ([facility]) Coronary artery disease Depression Gastroenteritis Heart valve disease Hypertension Kidney failure Lumbar spondylolysis Stroke ([facility]) Objective General: BMI 41.34 General: No [...] satisfaction. Pepito Almeida MD Orthopedic Surgery, PGY-5 [facility] Pager: [phone] 09/09/24 This note was created with the [...] be an additional personal documentation from me. [facility] 03-27-2024 Note [place] [facility] Subjective Mabel Moser is a 64 y.o. year old female patient being seen for 3 mo follow up HFpEF, hypertension, and mild pulmonary hypertension. She was admitted last month to [facility] for CHF and fluid overload. She [...] disorder (CMS/HCC) Polyneuropathy associated with critical illness ([facility]) Polyneuropathy Osteoarthritis of spine with radiculopathy, [...] on chronic systolic CHF (congestive heart failure) ([facility]/HCC) History of CVA in adulthood Hyperkalemia Hypomagnesemia Metabolic acidosis LEEANN (acute kidney injury) ([facility]) Cardiorenal disease Acute heart failure ([facility]) Polypharmacy Cerebral artery occlusion with cerebral infarction ([facility]/HCC) Chronic CHF (congestive heart failure) ([facility]) Fall at home, initial encounter Irritable bowel syndrome Restless leg syndrome Traumatic closed fracture of C2 vertebra with minimal displacement, initial encounter ([facility]) Cervical stenosis of spine Compression fracture of C2 vertebra with delayed healing History of Clostridium difficile colitis History of DVT of lower extremity Lymphedema MDD (major depressive disorder), recurrent episode, moderate ([facility]/HCC) Mild neurocognitive disorder Osteoporosis Peripheral venous insufficiency Poor venous access S/P cervical spinal fusion Simple goiter Syncope Vertebral artery dissection ([facility]) Family History Family history unknown: Yes Social History Tobacco Use Smoking status: Never Smokeless tobacco: Never Substance Use Topics Alcohol use: Not Currently Drug use: Not Currently HPI Mabel is seen in follow-up. She is a 64-year-old woman with prior history of obesity status post bariatric surgery in 2000. In the past she was admitted to [facility] in 2019 with fluid overload [...] severely elevated r (more content not included)... [facility] 03-05-2024 Note General Surgery Offi ce/Clinic [...] tab(s), Oral, BID butorphanol 10 mg/mL Nasal [place]ah, 1 spray(s), Nasal, Daily, PRN cyanocobalamin 1000 [...] BID Fioricet or (more content not included)... [facility] Comment on above: Result Comment: Elec tronically Signed By: FAYE ASCENCIO, Migel Martin.br\Date and Time Signed: 03/05/24 14:27 EDT 12-21-2023 Note [place] [facility] Subjective [...] C heart failure with preserved ejection fraction (CMS/[facility]) H/O gastric bypass Gouty arthropathy Gastroesophageal reflux disease Full thickness rotator cuff tear Fibromyalgia Low back pain Hip pain Hyperparathyroidism due to renal insufficiency (CMS/HCC) Hypocalcemia Hypertensive disorder Hypoglycemia Hyponatremia Hypothyroidism Impingement syndrome of shoulder region Insomnia Anemia due to vitamin B12 deficiency Pulmonary hypertension (CMS/HCC) Other fatigue Osteoarthritis of knee Morbid (severe) obesity due to excess calories ([facility]) Left atrial enlargement Lumbosacral neuritis Lumbosacral spondylosis without myelopathy Intractable migraine without status migrainosus Migraine Rheumatic tricuspid valve regurgitation Vitamin D deficiency Tympanic membrane perforation, right Transient ischemic attack Thoracic neuritis Tear of right rotator cuff Swallowing problem Sunburn of second degree Status post tympanoplasty Sprain of shoulder Seizure disorder ([facility]) Polyneuropathy associated with critical illness ([facility]) Polyneuropathy Osteoarthritis of spine with radiculopathy, lumbar region Obesity (BMI 30.0-34.9) Lumbar paraspinal muscle spasm Lateral femoral cutaneous neuropathy, left Internal derangement of right shoulder History of total right knee replacement Hemiparesis, left ([facility]) Hemiparesis due to old stroke ([facility]) Difficulty walking Depression Constipation Abnormal blood chemistry 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 ([facility]) Pre-operative cardiovascular examination Acute on chronic systolic CHF (congestive heart failure) ([facility]) History of CVA in adulthood Hyperkalemia Hypomagnesemia Metabolic acidosis LEEANN (acute kidney injury) ([facility]) Cardiorenal disease Acute heart failure ([facility]) Polypharmacy Cerebral artery occlusion with cerebral infarction ([facility]) Chronic CHF (congestive heart failure) ([facility]) Fall at home, initial encounter Irritable bowel syndrome Restless leg syndrome Traumatic closed fracture of C2 vertebra with minimal displacement, initial encounter ([facility]) Family History Family history unknown: Yes Social History Tobacco Use Smoking status: Never Smokeless tobacco: Never Substance Use Topics Alcohol use: Not Currently Drug use: Not Currently HPI Mabel is seen in follow-up. She is a 63-year-old woman with prior history of obesity status post bariatric surgery in 1999. In the past she was admitted to [facility] in 2019 with fluid overload [...] recommended to t (more content not included)... [facility] 07-03-2023 Progress note Note Date/Time July 03, 2023 12:18pm [facility] [address] [place] [address] Nephrology Progress Note Signed Patient: Mabel Moser MR#: [id number] : 1960 Acct:[id number] Age/Sex: 63 / F Adm Date: 4 Loc: Room: [address] [place] [address] Type: ADM IN Attending Dr: Jim Randhawa [...] 50 Mg Tablet) 150 mg PO QHS [facility] Stop: 06/29/24 21:59 Last Admin: 07/02/23 21:00 Dose: 150 mg Aripiprazole (Aripiprazole 2 Mg Tablet) 2 mg PO DAILY [facility] Stop: 06/29/24 08:59 Last Admin: 07/03/23 08:13 Dose: 2 mg Bisacodyl (Bisacodyl 5 Mg Tablet.) 10 mg PO DAILY PRN PRN Reason: Constipation Stop: 06/28/24 21:34 Bumetanide (Bumetanide 1 Mg/4 Ml Vial) 1 mg IV-PUSH BID@0800,1600 [facility] Stop: 06/29/24 07:59 Last Admin: 07/03/23 08:14 Dose: 1 mg Calcium Acetate (Calcium Acetate 667 Mg Capsule) 667 mg PO BID.WITH.MEALS [facility] Stop: 06/29/24 07:59 Last Admin: 07/03/23 08:13 Dose: 667 mg Duloxetine HCl (Duloxetine 60 Mg Capsule.) 120 mg PO DAILY [facility] Stop: 06/29/24 08:59 Last Admin: 07/03/23 08:13 Dose: 120 mg Fentanyl (Fentanyl Patch 100 Mcg/Hour Patch.Td72) 100 mcg TRANSDERML Q72H [facility]; Protocol Last Admin: 07/03/23 08:12 Dose: 100 mcg Ferrous Sulfate (Ferrous Sulfate 324 Mg Tablet.) 324 mg PO DAILY [facility] Stop: 06/29/24 08:59 Last Admin: 07/03/23 08:13 Dose: 324 mg Gabapentin (Gabapentin 100 Mg Capsule) 100 mg PO TID [facility] Stop: 06/29/24 08:59 Last Admin: 07/03/23 08:13 Dose: 100 mg Guaifenesin/Dextromethorphan (Guaif/Dextromethorphan Syrup 10 Ml Udc) 10 ml PO Q8H PRN PRN Reason: Cough Stop: 06/28/24 21:34 Heparin Sodium (Porcine) (Heparin 5,000 Unit/Ml Vial) 5,000 unit SUBCUT Q12HR [facility] Stop: 06/29/24 08:59 Last Admin: 07/03/23 08:14 Dose: 5,000 unit Levothyroxine Sodium (Levothyroxine 100 Mcg Tablet) 100 mcg PO DAILY@0630 [facility] Stop: 06/29/24 06:29 Last Admin: 07/03/23 06:23 Dose: 100 mcg Linaclotide (Linaclotide 290 Mcg Capsule) 290 mcg PO Q48HR [facility] Stop: 06/29/24 08:59 Last Admin: 07/02/23 08:59 Dose: 290 mcg Liothyronine Sodium (Liothyronine 25 Mcg Tablet) 25 mcg PO DAILY@0630 [facility] Stop: 06/29/24 10:59 Last Admin: 07/03/23 06:23 Dose: 25 mcg Loratadine (Loratadine 10 Mg Tablet) 10 mg PO DAILY PRN PRN Reason: Allergy Symptoms Stop: 06/29/24 06:54 Melatonin (Melatonin 5 Mg Tablet) 5 mg PO QHS PRN PRN Reason: Insomnia Stop: 06/28/24 21:34 Metoprolol Tartrate (Metoprolol Tartrate 25 Mg Tablet) 25 mg PO BID [facility] Stop: 06/29/24 20:59 Last Admin: 07/03/23 08:14 Dose: 25 mg Ondansetron HCl (Ondansetron 4 Mg/2 Ml Vial) 4 mg IV-PUSH Q8H PRN PRN Reason: Nausea And Vomiting Stop: 06/28/24 21:34 Oxycodone/Acetaminophen (Oxycodone/Acetaminophen 5-325 Mg Tablet) 2 tab PO Q6H PRN PRN Reason: Pain Last Admin: 07/03/23 11:25 Dose: 2 tab Pantoprazole Sodium (Pantoprazole 40 Mg Tablet.Dr) 40 mg PO BID [facility] Stop: 06/29/24 08:59 Last Admin: 07/03/23 08:13 Dose: 40 mg Primidone (Primidone 50 Mg Tablet) 100 mg PO HS [facility] Stop: 06/29/24 21:59 Last Admin: 07/02/23 21:00 Dose: 100 mg Sevelamer Carbonate (Sevelamer Carbonate 800 Mg Tablet) 800 mg PO TID.WITH.MEALS [facility] Stop: 06/29/24 11:59 Last Admin: 07/03/23 11:22 [...] signed by Raeann Kirkpatrick MD> 07/03/23 12[address] [facility] Work Phone: 1(693) 210-853201-07-2024 Progress note Author Jim Randhawa [facility] July 02, 2023 11:26am Note Date/Time July 02, 2023 11 :26am [facility] [address] [place] [address] Hospitalist Progress Note Signed Patient: Mabel Moser MR#: [id number] : 1960 Acct:[id number] Age/Sex: 63 / F Adm Date: 4 Loc: Room: [address] [place] [address] Type: ADM IN Attending Dr: Jim Randhawa [...] signed by Jim Randhawa DO> 07/02/23 1126 [facility] Work Phone: 1(170) 611-470301-07-2024 Progress note Author [facility] July 02, 2023 10:42am Note Date/Time July 02, 2023 10 :42am [facility] [address] [place] [address] Nephrology Progress Note Signed Patient: Mabel Moser MR#: [id number] : 1960 Acct:[id number] Age/Sex: 63 / F Adm Date: 4 Loc: Room: [address] [place] [address] Type: ADM IN Attending Dr: Jim Randhawa [...] 50 Mg Tablet) 150 mg PO QHS [facility] Stop: 06/29/24 21:59 Last Admin: 07/01/23 21:21 Dose: 150 mg Aripiprazole (Aripiprazole 2 Mg Tablet) 2 mg PO DAILY [facility] Stop: 06/29/24 08:59 Last Admin: 07/02/23 08:55 Dose: 2 mg Bisacodyl (Bisacodyl 5 Mg Tablet.) 10 mg PO DAILY PRN PRN Reason: Constipation Stop: 06/28/24 21:34 Bumetanide (Bumetanide 1 Mg/4 Ml Vial) 1 mg IV-PUSH BID@0800,1600 [facility] Stop: 06/29/24 07:59 Last Admin: 07/02/23 08:55 Dose: 1 mg Calcium Acetate (Calcium Acetate 667 Mg Capsule) 667 mg PO BID.WITH.MEALS [facility] Stop: 06/29/24 07:59 Last Admin: 07/02/23 08:55 Dose: 667 mg Duloxetine HCl (Duloxetine 60 Mg Capsule.) 120 mg PO DAILY [facility] Stop: 06/29/24 08:59 Last Admin: 07/02/23 08:59 Dose: 120 mg Fentanyl (Fentanyl Patch 100 Mcg/Hour Patch.Td72) 100 mcg TRANSDERML Q72H [facility]; Protocol Last Admin: 06/30/23 09:31 Dose: 100 mcg Ferrous Sulfate (Ferrous Sulfate 324 Mg Tablet.) 324 mg PO DAILY [facility] Stop: 06/29/24 08:59 Last Admin: 07/02/23 08:55 Dose: 324 mg Gabapentin (Gabapentin 100 Mg Capsule) 100 mg PO TID [facility] Stop: 06/29/24 08:59 Last Admin: 07/02/23 08:55 Dose: 100 mg Guaifenesin/Dextromethorphan (Guaif/Dextromethorphan Syrup 10 Ml Udc) 10 ml PO Q8H PRN PRN Reason: Cough Stop: 06/28/24 21:34 Heparin Sodium (Porcine) (Heparin 5,000 Unit/Ml Vial) 5,000 unit SUBCUT Q12HR [facility] Stop: 06/29/24 08:59 Last Admin: 07/02/23 08:55 Dose: 5,000 unit Levothyroxine Sodium (Levothyroxine 100 Mcg Tablet) 100 mcg PO DAILY@0630 [facility] Stop: 06/29/24 06:29 Last Admin: 07/02/23 05:48 Dose: 100 mcg Linaclotide (Linaclotide 290 Mcg Capsule) 290 mcg PO Q48HR [facility] Stop: 06/29/24 08:59 Last Admin: 07/02/23 08:59 Dose: 290 mcg Liothyronine Sodium (Liothyronine 25 Mcg Tablet) 25 mcg PO DAILY@0630 [facility] Stop: 06/29/24 10:59 Last Admin: 07/02/23 05:48 Dose: 25 mcg Loratadine (Loratadine 10 Mg Tablet) 10 mg PO DAILY PRN PRN Reason: Allergy Symptoms Stop: 06/29/24 06:54 Melatonin (Melatonin 5 Mg Tablet) 5 mg PO QHS PRN PRN Reason: Insomnia Stop: 06/28/24 21:34 Metoprolol Tartrate (Metoprolol Tartrate 25 Mg Tablet) 25 mg PO BID [facility] Stop: 06/29/24 20:59 Last Admin: 07/02/23 08:55 Dose: 25 mg Ondansetron HCl (Ondansetron 4 Mg/2 Ml Vial) 4 mg IV-PUSH Q8H PRN PRN Reason: Nausea And Vomiting Stop: 06/28/24 21:34 Oxycodone/Acetaminophen (Oxycodone/Acetaminophen 5-325 Mg Tablet) 2 tab PO Q6H PRN PRN Reason: Pain Last Admin: 07/02/23 02:00 Dose: 2 tab Pantoprazole Sodium (Pantoprazole 40 Mg Tablet.Dr) 40 mg PO BID [facility] Stop: 06/29/24 08:59 Last Admin: 07/02/23 08:55 Dose: 40 mg Primidone (Primidone 50 Mg Tablet) 100 mg PO HS [facility] Stop: 06/29/24 21:59 Last Admin: 07/01/23 21:21 [...] by MD Los Grissom> 07/02/23 1042 [facility] Work Phone: 1([phone]) 885-341201-06-2024 Progress note Author Jim Randhawa [facility] July 01, 2023 1:52pm Note Date/Time July 01, 2023 1: 37pm [facility] [address] [place] [address] Hospitalist Progress Note Signed Patient: Mabel Moser MR#: [id number] : 1960 Acct:[id number] Age/Sex: 63 / F Adm Date: 4 Loc: Room: [address] [place] [address] Type: ADM IN Attending Dr: Jim Randhawa [...] <Electronically signed by Jim Randhawa DO> 07/01/23 7[address] [facility] Work Phone: 1(251) 847-813901-06-2024 Progress note [facility] July 01, 2023 10:16am Note Date/Time July 01, 2023 10 :16am [facility] [address] [place] [address] Nephrology Progress Note Signed Patient: Mabel Moser MR#: [id number] : 1960 Acct:[id number] Age/Sex: 63 / F Adm Date: 4 Loc: Room: [address] [place] [address] Type: ADM IN Attending Dr: Jim Randhawa [...] 2 Mg Tablet) 2 mg PO DAILY [facility] Stop: 06/29/24 08:59 Last Admin: 07/01/23 08:21 Dose: 2 mg Bisacodyl (Bisacodyl 5 Mg Tablet.) 10 mg PO DAILY PRN PRN Reason: Constipation Stop: 06/28/24 21:34 Bumetanide (Bumetanide 1 Mg/4 Ml Vial) 1 mg IV-PUSH BID@0800,1600 [facility] Stop: 06/29/24 07:59 Last Admin: 07/01/23 08:21 Dose: 1 mg Calcium Acetate (Calcium Acetate 667 Mg Capsule) 667 mg PO BID.WITH.MEALS [facility] Stop: 06/29/24 07:59 Last Admin: 07/01/23 08:20 Dose: 667 mg Duloxetine HCl (Duloxetine 60 Mg Capsule.) 120 mg PO DAILY [facility] Stop: 06/29/24 08:59 Last Admin: 07/01/23 08:20 Dose: 120 mg Fentanyl (Fentanyl Patch 100 Mcg/Hour Patch.Td72) 100 mcg TRANSDERML Q72H [facility]; Protocol Last Admin: 06/30/23 09:31 Dose: 100 mcg Ferrous Sulfate (Ferrous Sulfate 324 Mg Tablet.) 324 mg PO DAILY [facility] Stop: 06/29/24 08:59 Last Admin: 07/01/23 08:20 Dose: 324 mg Gabapentin (Gabapentin 100 Mg Capsule) 100 mg PO TID [facility] Stop: 06/29/24 08:59 Last Admin: 07/01/23 08:20 Dose: 100 mg Guaifenesin/Dextromethorphan (Guaif/Dextromethorphan Syrup 10 Ml Udc) 10 ml PO Q8H PRN PRN Reason: Cough Stop: 06/28/24 21:34 Heparin Sodium (Porcine) (Heparin 5,000 Unit/Ml Vial) 5,000 unit SUBCUT Q12HR [facility] Stop: 06/29/24 08:59 Last Admin: 07/01/23 08:21 Dose: 5,000 unit Levothyroxine Sodium (Levothyroxine 100 Mcg Tablet) 100 mcg PO DAILY@0630 [facility] Stop: 06/29/24 06:29 Last Admin: 07/01/23 05:46 Dose: 100 mcg Linaclotide (Linaclotide 290 Mcg Capsule) 290 mcg PO Q48HR [facility] Stop: 06/29/24 08:59 Last Admin: 06/30/23 09:33 Dose: 290 mcg Liothyronine Sodium (Liothyronine 25 Mcg Tablet) 25 mcg PO DAILY@0630 [facility] Stop: 06/29/24 10:59 Last Admin: 07/01/23 05:46 Dose: 25 mcg Loratadine (Loratadine 10 Mg Tablet) 10 mg PO DAILY PRN PRN Reason: Allergy Symptoms Stop: 06/29/24 06:54 Melatonin (Melatonin 5 Mg Tablet) 5 mg PO QHS PRN PRN Reason: Insomnia Stop: 06/28/24 21:34 Metoprolol Tartrate (Metoprolol Tartrate 25 Mg Tablet) 25 mg PO BID [facility] Stop: 06/29/24 20:59 Last Admin: 07/01/23 08:20 Dose: 25 mg Ondansetron HCl (Ondansetron 4 Mg/2 Ml Vial) 4 mg IV-PUSH Q8H PRN PRN Reason: Nausea And Vomiting Stop: 06/28/24 21:34 Oxycodone/Acetaminophen (Oxycodone/Acetaminophen 5-325 Mg Tablet) 2 tab PO Q6H PRN PRN Reason: Pain Last Admin: 07/01/23 03:35 Dose: 2 tab Pantoprazole Sodium (Pantoprazole 40 Mg Tablet.Dr) 40 mg PO BID [facility] Stop: 06/29/24 08:59 Last Admin: 07/01/23 08:21 Dose: 40 mg Primidone (Primidone 50 Mg Tablet) 100 mg PO HS [facility] Stop: 06/29/24 21:59 Last Admin: 06/30/23 21:17 Dose: 100 mg Sevelamer Carbonate (Sevelamer Carbonate 800 Mg Tablet) 800 mg PO TID.WITH.MEALS [facility] Stop: 06/29/24 11:59 Last Admin: 07/01/23 08:20 [...] by MD Los Grissom> 07/01/23 101[address] [facility] Work Phone: 1(234) 162-470501-05-2024 Progress note Author Jim Randhawa [facility] June 30, 2023 1:13pm Note Date/Time June 30, 2023 1: 13pm [facility] [address] [place] [address] Hospitalist Progress Note Signed Patient: Mabel Moser MR#: [id number] : 1960 Acct:[id number] Age/Sex: 63 / F Adm Date: 4 Loc: Room: [address] [place] [address] Type: ADM IN Attending Dr: Jim Randhawa [...] by Jim Randhawa DO> 06/30/23 1313 [facility] Work Phone: 1(396) 578-785201-05-2024 Consult note Author Los Grissom [facility] June 30, 2023 10:45am Note Date/Time June 30, 2023 10 :26am [facility] [address] [place] [address] Nephrology Consult Note Signed Patient: Mabel Moser MR#: [id number] : 1960 Acct:[id number] Age/Sex: 63 / F Adm Date: 4 Loc: Room: [address] [place] [address] Type: ADM IN Attending Dr: Jim Randhawa DO Copies to: MD Los Mensah MD Shawn J Warner, DO~ Providers Consult Date: 06/30/23 Requesting Provider: Jmi Randhawa DO Primary Care Provider: Yuri Santana MD HPI Reason for Consult: LEEANN [...] Mg/4 Ml Vial) 1 mg IV-PUSH BID@0800,1600 [facility] Stop: 06/29/24 07:59 Last Admin: 06/30/23 09:31 Dose: 1 mg Calcium Acetate (Calcium Acetate 667 Mg Capsule) 667 mg PO BID.WITH.MEALS [facility] Stop: 06/29/24 07:59 Last Admin: 06/30/23 09:30 Dose: 667 mg Duloxetine HCl (Duloxetine 60 Mg Capsule.) 120 mg PO DAILY [facility] Stop: 06/29/24 08:59 Last Admin: 06/30/23 09:30 Dose: 120 mg Escitalopram Oxalate (Escitalopram 20 Mg Tablet) 20 mg PO DAILY [facility] Stop: 06/29/24 08:59 Last Admin: 06/30/23 09:31 Dose: 20 mg Fentanyl (Fentanyl Patch 100 Mcg/Hour Patch.Td72) 100 mcg TRANSDERML Q72H [facility]; Protocol Last Admin: 06/30/23 09:31 Dose: 100 mcg Ferrous Sulfate (Ferrous Sulfate 324 Mg Tablet.) 324 mg PO DAILY [facility] Stop: 06/29/24 08:59 Last Admin: 06/30/23 09:31 Dose: 324 mg Gabapentin (Gabapentin 100 Mg Capsule) 100 mg PO TID [facility] Stop: 06/29/24 08:59 Last Admin: 06/30/23 09:31 Dose: 100 mg Guaifenesin/Dextromethorphan (Guaif/Dextromethorphan Syrup 10 Ml Udc) 10 ml PO Q8H PRN PRN Reason: Cough Stop: 06/28/24 21:34 Heparin Sodium (Porcine) (Heparin 5,000 Unit/Ml Vial) 5,000 unit SUBCUT Q12HR [facility] Stop: 06/29/24 08:59 Last Admin: 06/30/23 09:32 Dose: 5,000 unit Levothyroxine Sodium (Levothyroxine 100 Mcg Tablet) 100 mcg PO DAILY@0630 [facility] Stop: 06/29/24 06:29 Last Admin: 06/30/23 05:55 Dose: 100 mcg Linaclotide (Linaclotide 290 Mcg Capsule) 290 mcg PO Q48HR [facility] Stop: 06/29/24 08:59 Last Admin: 06/30/23 09:33 Dose: 290 mcg Liothyronine Sodium (Liothyronine 25 Mcg Tablet) 25 mcg PO DAILY [facility] Stop: 06/29/24 08:59 Loratadine (Loratadine 10 Mg [...] 40 Mg Tablet.) 40 mg PO BID [facility] Stop: 06/29/24 08:59 Last Admin: 06/30/23 09:31 Dose: 40 mg Primidone (Primidone 50 Mg Tablet) 100 mg PO HS [facility] Stop: 06/29/24 21:59 Sevelamer Carbonate (Sevelamer Carbonate 800 Mg Tablet) 800 mg PO TID [facility] Stop: 06/29/24 08:59 Tizanidine HCl (Tizanidine 4 [...] signed by MD Los Grissom> 06/30/23 1045 [facility] Work Phone: 1(846) 659-907901-04-2024 History and physical note Author Beatriz Oh [facility] June 29, 2023 9:51pm Note Date/Time June 29, 2023 9: 47pm [facility] [address] [place] [address] Hospitalist H&P Signed Patient: Mabel Moser MR#: [id number] : 1960 Acct:[id number] Age/Sex: 63 / F Adm Date: 4 Loc: Room: [address] [place] [address] Type: ADM IN Attending Dr: Papito Garces [...] mg PO BID 08/31/18 [History Confirmed 10/28/22] pqmtpkxj-adzibtf-aott-iron fum 18 mg-folic 600 mcg-vit K 80 [...] TID PRN Edema 10/28/22 [History Confirmed 10/28/22] tobiwrigal-ooilmestkvdgf-vgnxstdr 50 mg-325 mg-40 mg capsule 1 cap [...] days): 3 Documented By: Beatriz Oh MD 06/29/232 Signed By: <Electronically signed by Beatriz Oh MD> 06/29/232150 [facility] Work Phone: 1(640) 645-236610-10-2023 Evaluation note* Encounter Date Diagnosis Assessment Notes [...] G43.519) Advised the patient to follow with [facility] neurology clinic Mar, Chronic kidney disea se, [...] (ICD-10 - E83.39) Continue PhosLo with meals [facility] Other 04-04-2023 Evaluation note* Encounter Date Diagnosis [...] G43.519) Advised the patient to follow with [facility] Other 03-28-2023 NoteThe [facility] [id number] Evaluation note* Encounter Date Diagnosis Assessment Notes Treatment Notes Treatment Clinical Notes Jul, Contusion of right wrist, initial encounter (ICD-10 - S60.211A) Patient placed in cock up wrist splint. Activities 2-5 lbs ADLs [facility] Other 12-13-2022 NoteThe [facility] [id number] NoteThe [facility] [id number] NoteThe [facility] [id number] Evaluation note * Encounter Date Diagnosis Assessment [...] pressure. Advised the patient to follow-up with [facility] neurology clinic I will try to reach to Dr. Santana's office about fludrocortisone I would continue same blood pressure medications. Advised the patient to follow a low-salt diet and to monitor her blood pressure at home Mar, Migraine aura, persistent, intractable (ICD-10 - G43.519) Advised the patient to follow with [facility] Other 08-04-2022 NoteThe [facility] [id number] NoteThe [facility] [id number] Evaluation note* Encounter Date Diagnosis Assessment Notes [...] off all diuretics metolazone, spironolactone and bumetanide. [facility] Other Discharge summary Author Jim Randhawa [facility] July 03, 2023 3:03pm Note Date/Time July 03, 2023 2: 55pm [facility] [address] [place] [id number] Discharge Summary Signed Patient: Mabel Moser MR#: [id number] : 1960 Acct:[id number] Age/Sex: 63 / F Adm Date: 4 Loc: Room: [address] [place] [address]: Jim Randhawa DO Copies to: [...] 07/03/23 12:00 07/03/23 12:00 07/03/23 12:00 07/03/23 12:07/03/23 12:00 Narrative: General: Awake alert, no [...] signed by Jim Randhawa DO> 07/03/23 1503 [facility] Work Phone: Evaluation + Plan note No data available for this section [facility] [place] Evaluuismp noteNo assessment information available [facility] Work Phone: Evaluqquwe noteNo InformationNort Tuebor[employer] Other Evjbefloqp note* Diagnosis Onset Date Resolution Status Acute heart failure acute LEEANN (acute kidney injury) ac kaw Anemia chronic CKD (chronic kidney disease) stage 3, GFR 30-59 ml/min chronic Hypertension chronic [facility] Work Phone: evaluvhalf note* Diagnosis Onset Date Resolution Status CHF (congestive heart failure) acute Chronic kidney disease, stage 3b acute Fluid overload acute Hyperkalemia acute Secondary hyperparathyroidism acute Vitamin D deficiency acute Anemia chronic Hyponatremia chronic [facility] Work Phone: evaluation note* Diagnosis Onset Date Resolution Status Admit Date CHF (congestive heart failure) acute October 02, 2024 2:44pm Chronic kidney disease, stage 3b acu te October 02, 2024 2:44pm Fluid overload acute October 02, 2024 2:44pm Hyperkalemia acute October 02, 2 025 2:44pm Secondary hyperparathyroidism acute October 02, 2024 2:44pm Vitamin D deficiency acute Apri l 2024 2:44pm Anemia chronic October 02 2:44pm Hyponatremia chronic October 02, 2 025 2:44pm [facility] Work Phone: Evaluation note* Diagnosis Onset Date Resolution Status Admit Date CHF (congestive heart failure) acute January 14, 2025 11:05am Chronic kidney disease, stage 3b acu te January 14, 2025 11:05am Fluid overload acute January 14, 2025 11:05am Hyperkalemia acute January 14 025 11:05am Secondary hyperparathyroidism acute January 14, 2025 11:05am Vitamin D deficiency acute January 14, 2025 11:05am Anemia chronic January 14 11:05am Hyponatremia chronic January 14 025 11:05am [facility] Work Phone: Hispeta general Narrative - Reported* Type Description Date [...] History COVID 05/2020 Hospitalization History COVID 04/2021 [facility] Other Hisuubi general Narrative - Reported* Type Description Date [...] History COVID 05/2020 Hospitalization History COVID 04/2021 [facility] Other History general Narrative - Reported* Type [...] 04/2021 Hospitalization History ELEVATED POTASSIUM LEVEL 09/19/2022 [facility] Other Hospital Discharge instructions Additional Instructions Home health to manage: - PT/OT to eval and treat - Monitor VS routine - Dx. HTN - CHF assessments/education - Urinary assessments - Dx. CKD on LEEANN - Fall precautions - [facility] Work Phone: Hospital Discharge instructions No data available for this section [facility] Progress note No data available for this section [facility] Reason for referral (narrative)No reason for referral information availableGlenbeigh Hospital Work Phone: Summary Purpose Family History [...] DATE CREATED AUTHOR AUTHOR'S ORGANIZ ATION 07/24/2021 [facility] DATE CREATED AUTHOR AUTHOR'S ORGANIZ ATION 01/17/2022 [facility] DATE CREATED AUTHOR AUTHOR'S ORGANIZ ATION 12/05/2022 [facility] DATE CREATED AUTHOR AUTHOR'S ORGANIZ ATION 08/04/2023 [facility] DATE CREATED AUTHOR AUTHOR'S ORGANIZ ATION 10/19/2023 [facility] DATE CREATED AUTHOR AUTHOR'S ORGANIZ ATION 03/07/2024 [facility] DATE CREATED AUTHOR AUTHOR'S ORGANIZ ATION 03/27/2024 [facility] DATE CREATED AUTHOR AUTHOR'S ORGANIZ ATION 06/05/2024 [facility] DATE CREATED AUTHOR AUTHOR'S ORGANIZ ATION 10/13/2024 [facility] DATE CREATED AUTHOR AUTHOR'S ORGANIZ ATION 02/16/2025 [facility] REASON FOR VISIT (unrecogniz ed [...] 2024 Team Status: Active Member Role Status Dates Yuri Santana MD Primary Care Provider Active Start: January 02, 2025 Raeann Kirkpatrick MD Attending Provider Active Star t: January 02, 2025 Team Status: Inactive Member Role Status Dates [...] BE BASED ON THE PRIMARY CLINICAL RECORDS. [facility] [employer] provides no warranty or guarantee of the accuracy or completeness of information in this document.
== END 2025-03-18 12:46 | disposition home or self-care (01) ==
LOC: MRI 12:45
PROVIDERS: PCP Family Medicine; Visit Provider Family Medicine
DX: M47.817 Spondylosis without myelopathy or radiculopathy, lumbosacral region (principal); M54.17 Radiculopathy, lumbosacral region; M54.14 Radiculopathy, thoracic region; I10 Essential (primary) hypertension
CPT/HCPCS: 72146; 72148

== ENCOUNTER 2025-04-23 12:20 | Outpatient (RCR) | payer MEDICARE, MEDICAID, SELFPAY ==
[2025-04-23 12:43] LABS: Hematocrit 33.4 % (36.0-48.0); Hemoglobin 10.6 g/dL (12.0-16.0); Immature Granulocytes Abs Auto 0.03 10^3/uL (0.00-0.03); Immature Granulocytes Pct Auto 0.4 % (0.0-0.5); Lymphocytes Absolute Auto 1.2 10^3/uL (1.2-3.8); Mean Corpuscular HGB Conc 31.7 g/dL (29.9-35.2); Mean Corpuscular Hemoglobin 31.3 pg (26.7-34.0); Mean Corpuscular Volume 98.5 fL (81.0-99.0); Platelet Count 241 10^3/uL (150-450); Red Blood Count 3.39 10^6/uL (4.20-5.40); White Blood Count 7.3 10^3/uL (4.0-11.0)
[2025-04-23 13:07] LABS: Alanine Aminotransferase 11 U/L (14-59); Albumin Globulin Ratio 0.9; Albumin Level 3.2 g/dL (3.4-5.0); Alkaline Phosphatase 178 U/L (46-116); Anion Gap 14.4; Aspartate Amino Transferase 22 U/L (15-37); Blood Urea Nitrogen 30.0 mg/dL (7.0-18.0); Calcium 8.4 mg/dL (8.5-10.1); Carbon Dioxide 19.7 mmol/L (21.0-32.0); Chloride 106 mmol/L (98-107); Estimated GFR (African America 30 (>=60 mL/min/1.73m^2); Estimated GFR (Non-African Ame 25 (>=60 mL/min/1.73m^2); Globulin 3.6 g/dL; Glucose 82 mg/dL (74-106); Potassium 5.1 mmol/L (3.5-5.1); Sodium 135 mmol/L (136-145); Total Protein 6.8 g/dL (6.4-8.2)
== END 2025-04-25 23:59 | disposition home or self-care (01) ==
LOC: INF 12:20
PROVIDERS: PCP Family Medicine; Visit Provider Family Medicine
DX: E87.70 Fluid overload, unspecified (principal); I10 Essential (primary) hypertension; E87.1 Hypo-osmolality and hyponatremia
CPT/HCPCS: 36591; 80053; 83930; 85025

== ENCOUNTER 2025-05-10 15:09 | Emergency (ER) | payer MEDICARE, MEDICAID, SELFPAY ==
--- OUTSIDE RECORDS SUMMARY | 2023-12-01 05:00 | XMS_ITS ---
Author Organization [facility] Address [address] [place] [address] Care Team Providers Care Electric Blanket Wirer Name Role Phone Yuri Godinez Primary Care Provider Therese Diaz Loi Daniel Unavailable [phone] Laurie Shelton Unavailable Allergies Allergen (clinical drug [...] alcohol in the p ast year? No Bnjuef0VtelxtteuitfjkXbuocjsxLblmhnx Control (Standard) Question Answer Notes Tobacco use: Nonsmoker Problems Problem Type SNOMED Code ICD Code Onset Dates Problem Status W/U Status Risk Notes Problem Sciatica (54162088) Sciatica of left side (M54.32) ActiveconfirmedProblemNeurogenic claudication (987172495)Lumbar stenosis with neurogenic claudication (M48.062)ActiveconfirmedProblemOsteoarthritis of knee (379585335)Primary osteoarthritis of left knee (M17.12)Activeconfirmed Encounters Encounter Location Date Provider Diagnosis [address] [place] [address] [place] [address] 12/01/2023 [facility] Closed nondisplaced fracture of second cervical [...] patient. Patient can discontinue use of the [place] collar. We will refer her to pain [...] patient. Patient can discontinue use of the [place] collar. We will refer her to pain [...] * JOSE CLEMENTS ADOB:1959 (65 yo F)Acc No.[id number]:12/01/2023 Patient:?JOSE CLEMENTS :?Laurie Don PADOB:1960???Age:63 Y???Sex:FemaleDate:12/01/2023hone:[phone]:[address] [place], [place] [id number]:Yuri Mukundstefan Subjective: * Chief Complaints: * 1 [...] C2 fracture. She has been in an [place] collar. We set her up with a [...] uses a walker. She is wearing a [place] collar. Midline tender over the cervical spine. 5/5 muscle strength right upper extremity, 4/5 strength left upper extremity. Decreased sensation to the left upper extremity, cannot actively extend right fifth digit. ???X-ray Imaging Studies: ?MRI Imaging Studies: ???MRI cervical spine without contrast reviewed from the [facility] from 11/03/2023; Impression:Mild degenerative changes of the [...] patient. Patient can discontinue use of the [place] collar. We will refer her to pain [...] Electronic signature of Laurie Shelton PA-C on 05/10/2025 at 04:10 PM ESTSign off status: Pending * Provider: CAR Driscoll Date: 0 12/01/2023 Generated for Printing/Faxing/eTransmitting on:?05/10/2025 04:10 PM EST History and Physical Notes * HPI [...] C2 fracture. She has been in an [place] collar. We set her up with a MRI of the cervical spine. The patient returns to the office today to discuss results. Patient denies bowel or bladderincontinence or urinary retention. Examination CategorySub-CategoryDetailNotesCategory NotesGeneral examinationOn examination, the patient is well-developed, well-nourished, well-groomed, alert and oriented x3,normal mood. Walks with antalgic gait and uses a walker. She is wearing a [place] collar. Midline tender over the cervical spine. 5/5 muscle strength right upper extremity, 4/5 strength left upper extremity. Decreased sensation to the left upper extremity, cannot actively extend right fifth digit.X-ray Imaging StudiesMRI Imaging Studies MRI cervical spine without contrast reviewed from the [facility] from 11/03/2023; Impression:Mild degenerative changes of the cervical spine in particular at C6- C7. No note of acutefracture of C2.
--- OUTSIDE RECORDS SUMMARY | 2025-02-18 06:00 | XMS_ITS ---
Author Organization [facility] [place] Address [address] [place] [address] Care Team Providers Care Pack Room Operator Name Role Phone Vinay Godinez Primary Care Provider Ny Rae Unavailable [phone] REASON FOR VISIT MD Encounters Encounter Location Date Provider Diagnosis [facility] [address] [place] [phone] 02/18/2025 Ny Rae Plan Of Treatment No Information Progress Notes * Mabel CLEMENTS ADOB:1959 (65 yo F)Acc No.[id number]:02/18/2025 UNLOCKED PROGRESS NOTE Progress Notes Patient: Bob BURGOS Mabel Ivy :?Ny Rae M.D.:1960???Age:64 Y ???Sex:FemaleDate:02/18/2025Phone:[phone]:[address] [place] [id number]:Vinay Godinez Subjective: * Chief Complaints: * 1 . MD. * Medical History: Objective: * Vitals: Assessment: Plan: * Treatment: * * Electronic signature of Ny Rae MD, [phone] on 05/10/2025 at 04:12 PM ESTSign off status: PendingVisit Status:?CANC (Cancelled) * Provider: Ivy Rae M.D. Date: 0 02/18/2025 Generated for Printing/Faxing/eTransmitting on:?05/10/2025 04:12 PM EST
--- OUTSIDE RECORDS SUMMARY | 2025-02-18 06:15 | XMS_ITS ---
Author Organization The [facility] in [place] Address [address] [place] [address] Care Team Providers Care Xerox Machine Operator Name Role Phone Vinay Godinez Primary Care Provider [phone] Ny Rae Unavailable [phone] REASON FOR VISIT CS Encounters Encounter Location Date Provider Diagnosis [facility] Oncology [address] [place] [address] 02/18/2025 Ny Rae Plan Of Treatment No Information Progress Notes * Mabel CLEMENTS ADOB:1959 (65 yo F)Acc No.[id number]:02/18/2025 UNLOCKED PROGRESS NOTE Progress Note Patient: Bob LORETTA Mabel Ivy :?Ny Rae M.D.:1960???Age:64 Y ???Sex:FemaleDate:02/18/2025Phone:[phone]:[address] [place] [address]Pcp:Vinay Godinez Subjective: * Chief Complaints: * 1 . CS. * Medical History: Objective: * Vitals: Assessment: Plan: * Treatment: * * Electronic signature of Ny Rae MD, [id number] on 05/10/2025 at 04:11 PM ESTSign off status: PendingVisit Status:?CANC (Cancelled) * Provider: Ivy Rae M.D. Date: 0 02/18/2025 Generated for Printing/Faxing/eTransmitting on:?05/10/2025 04:11 PM EST
--- OUTSIDE RECORDS SUMMARY | 2025-02-18 09:15 | XMS_ITS ---
Author Organization The [facility] in [place] Address [address] [place] [address] Care Team Providers Care Youth Officer Name Role Phone Vinay Godinez Primary Care Provider [phone] Ny Rae Unavailable [phone] REASON FOR VISIT MD Encounters Encounter Location Date Provider Diagnosis [facility] Oncology [address] [place] [phone] 02/18/2025 Ny Rae Plan Of Treatment No Information Progress Notes * Mabel CLEMENTS ADOB:1959 (65 yo F)Acc No.[id number]:02/18/2025 UNLOCKED PROGRESS NOTE Progress Notes Patient: Bob BURGOS Mabel Ivy :?Ny Rae M.D.:1960???Age:64 Y ???Sex:FemaleDate:02/18/2025Phone:[phone]:[address] [place] [address]Pcp:Vinay Godinez Subjective: * Chief Complaints: * 1 . MD. * Medical History: Objective: * Vitals: Assessment: Plan: * Treatment: * * Electronic signature of Ny Rae MD, [id number] on 05/10/2025 at 04:09 PM ESTSign off status: PendingVisit Status:?CANC (Cancelled) * Provider: Ivy Rae M.D. Date: 0 02/18/2025 Generated for Printing/Faxing/eTransmitting on:?05/10/2025 04:09 PM EST
--- OUTSIDE RECORDS SUMMARY | 2025-02-18 09:30 | XMS_ITS ---
Author Organization The [facility] in [place] Address [address] [place] [address] Care Team Providers Care Ludlow Machine Operator Name Role Phone Vinay Godinez Primary Care Provider Ny Rae Unavailable [phone] REASON FOR VISIT CS Encounters Encounter Location Date Provider Diagnosis [facility] Oncology [address] [place] [address] 02/18/2025 Ny Rae Plan Of Treatment No Information Progress Notes * Mabel CLEMENTS ADOB:1959 (65 yo F)Acc No.[id number]:02/18/2025 UNLOCKED PROGRESS NOTE Progress Note Patient: Bob LUCINDAJOMAR Mabel Ivy :?Ny Rae M.D.:1960???Age:64 Y ???Sex:FemaleDate:02/18/2025Phone:[phone]:[address] [place] [address]Pcp:Vinay Godinez Subjective: * Chief Complaints: * 1 . CS. * Medical History: Objective: * Vitals: Assessment: Plan: * Treatment: * * Electronic signature of Ny Rae MD, [id number] on 05/10/2025 at 04:09 PM ESTSign off status: PendingVisit Status:?PEN (Pending) * Provider: Ivy Rae M.D. Date: 0 02/18/2025 Generated for Printing/Faxing/eTransmitting on:?05/10/2025 04:09 PM EST
--- OUTSIDE RECORDS SUMMARY | 2025-03-18 09:45 | XMS_ITS ---
Author Organization The [facility] in [place] Address [address] [place] [address] Care Team Providers Care Program Coordinator For Residence Life Name Role Phone Vinay Godinez Primary Care Provider [phone] Ny Rae Unavailable [phone] REASON FOR VISIT CS Encounters Encounter Location Date Provider Diagnosis [facility] Oncology [address] [place] [address] 03/18/2025 Ny Rae Plan Of Treatment No Information Progress Notes * Mabel CLEMENTS ADOB:1959 (65 yo F)Acc No.[id number]:03/18/2025 UNLOCKED PROGRESS NOTE Progress Note Patient: Bob LUCINDAJOMAR Mabel Ivy :?Ny Rae M.D.:1960???Age:65 Y ???Sex:FemaleDate:03/18/2025Phone:[phone]:[address] [place] [phone]:Vinay Godinez Subjective: * Chief Complaints: * 1 . CS. * Medical History: Objective: * Vitals: Assessment: Plan: * Treatment: * * Electronic signature of Ny Rae MD, [id number] on 05/10/2025 at 04:11 PM ESTSign off status: PendingVisit Status:?PEN (Pending) * Provider: Ivy Rae M.D. Date: 0 03/18/2025 Generated for Printing/Faxing/eTransmitting on:?05/10/2025 04:11 PM EST
[2025-05-10 15:14] VITALS: BP 131/88; PULSE 97; TEMP 36.7; O2SAT 98; BMI 35.5
--- OUTSIDE RECORDS SUMMARY | 2025-05-10 16:09 | XMS_ITS | CCD ---
Author Organization [facility]ini[facility] Care Team Providers Care Nurse Esthetician Name Role Phone NIRMAL LEWIS Admitting Unavailable [...] Referring Unavailable YURI SANTANA Primary Care Unavailable Raeann Kirkpatrick Unavailable Sue Leiva Unavailable MD Yuri Santana Primary Care Provider [phone] WALLY Helm Emergency Provider ROBERT JOHNSTON [...] Unavailable HOY ., DR BARBOUR Attending Unavailable POCAHONTAS, DR CARLOS Castillo Consulting Unavailable LAKSHMIPATHY ., [...] Unavailable TAMLYN ., FELECIA Attending Unavailable MAICOL ., FELECIA Admitting Unavailable HOY ., DR [...] HOY ., DR BARBOUR Attending Unavailable MD Yuri Santana Primary Care Provider [phone] MD Beatriz Oh Admit Provider DO Jim Randhawa Attending Provider MD [place] Other Provider Jim Randhawa Attending Unavailable Beatriz Oh Admitting Unavailable [place] Consulting Unavailable Yuri Santana Primary Care Unavailable Favian Helm Admitting Unavailable Favian Helm Attending Unavailable Yuri Santana Primary Care Unavailable YURI SANTANA Referring Unavailable HOKristen, YURI M Primary Care Unavailable Esther Yuri Primary Care Physician Migel MCKINNEY Attending Unavailable Mukundy, Yuri Referring Unavailable LORAMSES, MERE Admitting Unavailable LORAMSES, MERE Attending Unavailable BALJINDER HUGHES Referring Unavailable ARMAND, ARMAND MOON Consulting Unavailable HOY, YURI M Primary Care Unavailable AFANEH, AMER JEISON-HAFIZ Admitting Unavail able AFANEH, AMER JEISON-HAFIZ Attending Unavail able ARMAND, ARMAND MOON Consulting Unavailable HOY, YURI M Primary Care Unavailable BUNNY PARIKH Consulting Unavailable YASMINJENNY Duron Consulting Unavailable PINEDA OAKLEY Consulting Unavailable MATTHEW CLOUD Consulting Unavailable RADHA WADE Consulting Unavailable LUCIANO WEISS Consulting Unavailable ZOE EASLEY Consulting Unavaila diana ANGELAUKASAUL Castillo, BENJIE Referring Unavailable HOY, YURI M Primary Care Unavailable MOUKARBABIODUN Castillo, BENJIE Referring Unavailable HOY, YURI M Primary Care Unavailable MOUKARBABIODUN Castillo, BENJIE Referring Unavailable HOY, YURI M Primary Care Unavailable MOUKARBEL Anna, BENJIE Referring Unavailable HOY, YURI M Primary Care Unavailable Yuri Santana MD M Primary Care Provider [phone] Casimiro ASCENCIO, Raeann Attending Provider Gihellenitis , Riki Timmons Attending Unavailable Giedraitis , Androsendo Timmons Attending Unavailable Giedraitis , Riki Timmons Attending Unavailable ELATTAR, OSAMA Referring Unavailable ELATTAR, OSAMA Referring Unavailable ELATTAR, OSAMA Referring Unavailable ELATTAR, OSAMA Attending Unavailable CARLOS REZA Attending Unavailable MUKUNDY, YURI Referring Unavailable JULIO CÉSARUKABENJIE HUGHES Attending Unavailable JULIO CÉSARUKABENJIE HUGHES Attending Unavailable Allergies Allergy ClassificationReported Allergen(s)Allergy TypeDate of OnsetReaction(s) Facility (14 sources)AmoxicillinDrug Eztxhtk17-06-2445Nyrztbr, [facility] (6 sources)Amoxicillin / Clavulanate; Translations: [amoxicillin-clavulanate] Drug AllergyWeal (disorder)[facility] (18 sources)Povidone-Iodine; Translations: [POVIDONE-IODINE]Drug Allergy 64-72-4366Jleisjpg of skin (disorder)[facility] (9 sources)Sulfamethoxazole / TrimethoprimDrug [facility]ergyNew[facility] Other (1 source)sulfaSALAzineDrug AllergyNewport Hospital [facility] Other (8 sources)Amoxicillin / Clavulanate; Translations: [Augmentin]Drug Allergy 73-51-5162XotgamfAwkCity [facility] Rep[facility] (1 source)BumetanideDrug Cjwdavj88-55-7229QusThe [facility] (1 source)CephalexinDrug Lkzoekj85-09-2707Bfi [facility] Repository (2 sources)gabapentin; Translations: [GABAPENTIN]Drug Yxralts36-78-8081Muq [facility] Repository (4 sources)Povidone-Iodine; Translations: [Betadine]Drug Secaumz66-50-0577Trd [facility] Repository (1 source)pregabalin; Translations: [LYRICA]Drug Mcarmxz95-25-3819XkeThe [facility] (11 sources)Sulfonamides (Antibiotic); Translations: [SULFA (SULFONAMIDE ANTIBIOTICS)]Drug allergy (disorder)05-01-4025SlvlRxzSouth[facility] Repository (1 source)SulfonamideDrug allergyNewport Hospital [facility] Other (7 sources)Substance with sulfonamide structure and antibacterial mechanism of action (substance)Drug allergyNewport Hospital [facility] Other (7 sources)Clavulanate; Translations: [clavulanic acid]Drug Mhrkiwj01-64-4807 DiarrheaPomerene Hospital (1 source)CiprofloxacinDrug Iiakhgj39-87-8435TewPark[facility] (1 source)AmoxicillinDrug Rhwycmt60-56-1538ZauyfuvykPomerene Hospital Repository (1 source)Povidone-IodineDrug Ickigxy11-42-0024RxcqetcokPomerene Hospital Repository (4 sources)SulfamethoxazoleDrug Rnlykey44-21-4139Fequwax ReactionPomerene Hospital Repository (1 source)Sulfonamides (Antibiotic)Drug allergy (disorder)68-47-8075NxwltuzhlPomerene Hospital Repository (5 sources)Trimethoprim; Translations: [TRIMETHOPRIM]Drug Ajdhrij14-79-3869 Unknown ReactionPomerene Hospital Repository (3 sources)AMOXICILLIN-POT CLAVULANATE; Translations: [AMOXICILLIN-POT CLAVULANATE]Propensity to adverse reactions to drug (disorder)06-13-2014 [facility] Repository (2 sources)Sulfonamides (Antibiotic); Translations: [sulfa drugs]Drug allergy Eruption of skin (disorder)[facility] (1 source)carvedilol; Translations: [CARVEDILOL]Drug Efallct59-75-9649WvjqquyinlOhioHealth [facility] Rep[facility] (1 source)Cephalexin; Translations: [CEPHALEXIN]Drug Biilnzg82-82-8357UxoqpegfuiOhioHealth Shelby Hospital Repository (1 source)Ciprofloxacin; Translations: [CIPROFLOXACIN]Drug Cbzdyad48-43-8404 [facility] Repository (1 source)Iodine; Translations: [IODINE]Drug Soktlnr66-21-7253KlmzooyxkcOhioHealth Shelby Hospital Repository (1 source)pregabalin; Translations: [PREGABALIN]Drug Fgpvhzd45-38-0089JbosqnmbtjOhioHealth Shelby Hospital Repository (1 source)Sulfamethoxazole / Trimethoprim; Translations: [SULFAMETHOXAZOLE-TRIMETHOPRIM]Drug Uwqvrid51-96-8455PnrzjgzwnyOhioHealth Shelby Hospital Repository Medications Current Medications MedicationDrug Class(es)DatesSig (Normalized)Sig (Original)acetaminophen 300 mg / butalbital 50 mg / caffeine 40 mg oral capsule (6 sources)Barbiturate, Central Nervous System Stimulant, MethylxanthineStart: 93-51-4441uefd 1 capsule by mouth every four hoursFioricet oral capsule 1 cap(s), Oral, q4hr Migraine headache, Refill(s) 0 Start Date: 02/12/24 Status: OrderedStart: 10-28-2022 End: 56-09-3448Kafadwgflj-Acetaminophen-Caff 50-325-40 mg capsule Discontinued 1 CAP PO As Directed as needed for Migraine Headache October 28, 2022 12:00am June 30, 2023 1:08uk294 actuat albuterol 0.09 mg/actuat dry powder inhaler (8 sources)beta2-Adrenergic AgonistStart: 56-62-4823Smfqhwgvk Sulfate 90 mcg/actuation aerosol powdr breath activated Active 2 INH INHALATION Every 6 ho urs as needed March 26, 2024 12:00am Complies with drug therapyStart: 10-28-2022 End: 22-70-7585wyyg 1 puff(s) by inhalation every six hours as neededAlbuterol Sulfate 90 mcg/actuation Hfa Aerosol Inhaler Discontinued 1 PUFF INHALATION Q6H as neededfor Shortness Of Breath October 28, 2022 12:00am June 30, 2023 1:25am albuterol 0.833 mg/ml / ipratropium bromide 0.167 mg/ml inhalation solution (8 sources)Anticholinergic, beta2-Adrenergic AgonistStart: 03-26-2024 Ipratropium-Albuterol 0.5 mg-3 mg(2.5 mg base)/3 mL solution for nebulization Active 3 ML INHALATION every 6 to 8 hours as needed March 26, 2024 12:00am Complies with drug therapyStart: 10-28-2022 End: 53-63-0758pnjf 1 mL by inhalation every six hours as neededIpratropium- Albuterol 0.5 mg-3 mg(2.5 mg base)/3 mL Solution For Nebulization Discontinued 3 ML INHALATION Q6H as needed for Shortness Of Breath October 28, 2022 12:00am June 30, 2023 1:26amALPRAZolam 0.5 mg oral tablet (19 sources)BenzodiazepineStart: 96-04-0976xfuf 1 tablet by mouth once daily at bedtimeAlprazolam 0.5 mg tablet Active 0.5 MG PO Daily at bedtime January 14, 2025 11:09am Complies with drug therapyStart: 03-26-2024 End: 04-68-5454dsfs 1 tablet by mouth twice dailyAlprazolam 0.5 mg tablet Discontinued 0.5 MG PO Twice daily March 26, 2024 12:00am January 14, 2025 11:14amStart: 97-31-4995plzq 1 tablet by mouth twice daily as needed for anxiety alprazolam 0.5 mg Tab 0.5 mg = 1 tab(s), Oral, BID, PRN for anxiety, Refills(s) 0 Start Date: 02/12/24 Status: OrderedStart: 08-31-2018 End: 54-91-5108fasf 2 tablets by mouth twice daily as needed for anxiety Alprazolam (Xanax) 0.25 mg Tablet Discontinued 0.5 MG PO Twice daily as needed for Anxiety August 31, 2018 1:00am March 26, 2024 12:01pmtake 1 tablet by mouth twice daily as neededALPRAZolam 0.25 MG 1 tablet Orally Twice a day NEEDED Activetake 1 tablet by mouth three times daily as neededALPRAZolam 0.25 MG 1 tablet Orally THREE TIMES A DAY PRN Activetake 1 tablet by mouth three times daily as neededALPRAZolam 0.5 MG 1 tablet Orally THREE TIMES A DAY PRN Activeamitriptyline hydrochloride 150 mg oral tablet (20 sources)Tricyclic AntidepressantStart: 92-20-9663uvdc 2 tablets by mouth once daily at bedtimeAmitriptyline 150 mg tablet Active 300 MG PO Daily at bedtime January 14, 2025 11:09am Complies withdrug therapyStart: 10-02-2024 End: 61-25-9015qgfc 1 tablet by mouth twice dailyAmitriptyline 150 mg tablet Discontinued 150 MG PO Twice daily October 02, 2024 2:48pm January 14, 2025 11:14amStart: 10-28-2022 End: 77-73-0170kzxx 2 tablets by mouth at bedtimeAmitriptyline 150 mg tablet Discontinued 300 MG PO Bedtime October 28, 2022 12:00am October 02, 2024 2:58pm Start: 47-75-8927zznh 300 mg by mouth at bedtimeAmitriptyline Active 300 MG PO Bedtime October 28, 2022 12:00amStart: 24-52-9724kxtx 150 mg by mouth once daily Amitriptyline Active 150 MG PO Daily October 28, 2022 12:00amStart: 08-31-2018 End: 60-30-4863wgxr 2 tablets by mouth once dailyAmitriptyline 100 mg Tablet Discontinued 200 MG PO Daily August 31, 2018 1:00am September 04, 2018 7:59am Start: 08-31-2018 End: 87-49-4624ofsf 200 mg by mouth once dailyAmitriptyline Discontinued 200 MG PO Daily August 31, 2018 1:00am September 04, 2018 7:59amatorvastatin 40 mg oral tablet (1 source)HMG-CoA Reductase InhibitorStart: 78-84-7430admg 1 tablet by mouth once dailyatorvastatin 40 mg Tab 40 mg = 1 tab(s), Oral, Daily, Refills(s) 0 Start Date: 02/12/24 Status: Orderedazelastine hydrochloride 0.5 mg/ml ophthalmic solution (3 sources)Histamine-1 Receptor AntagonistStart: 04-06-7085gvms 1 drop(s) into the eye(s) once dailyAzelastine 0.05 % drops Active 1 DROPS EYE-BOTH Daily January 14, 2025 11:10am Complies with drug therapyStart: 10-02-2024 End: 65-24-5214bbot 1 drop(s) into the eye(s) twice dailyAzelastine 0.05 % drops Discontinued 1 DROPS EYE-BOTH Twice daily October 02, 2024 12:00am January 14, 2025 11:14amStart: 37-34-5079nlhc 1 drop(s) into the eye(s) twice daily Azelastine 0.05 % drops Active 1 DROPS EYE-BOTH Twice daily October 02, 2024 12:00amB Complex (Folic Acid) - (9 sources)B Complex (Folic Acid) - as directed Orally ONCE A DAY Active butorphanol tartrate 1 mg/actuat metered dose nasal spray (10 sources)Opioid Agonist/AntagonistStart: 18-15-0859hqdnwqplaqt 10 mg/mL Nasal [place] = 1 spray(s), Nasal, Daily, PRN as needed for pain, Refills(s) 0 Start Date: 02/12/24 Status: OrderedStart: 10-28-2022 End: 61-32-4388Xhmdbexirvc 10 mg/mL spray,non-aerosol Active 1 SPRAY INTRANASAL Daily as needed for Migraine Headache June 30, 2023 1:00am Complies with drug therapyStart: 10-28-2022 End: 50-58-7586Buoqirzbwjb Active 1 SPRAY INTRANASAL Daily June 30, 2023 1:00amcalcitriol 0.0005 mg oral capsule (2 sources)Vitamin D3 AnalogStart: 09-10-0516jkni 1 capsule by mouth once daily Calcitriol 0.5 mcg capsule Active 0.5 MCG PO Daily October 02, 2024 12:00am administer after dialysis on dialysis days Complies with drug therapycalcium carbonate 500 mg chewable tablet (9 sources)take 2 tablets by mouth twice daily as neededCalcium Carbonate Antacid 500 MG 2 tablets Orally Twice a day PRN Activecetirizine hydrochloride 10 mg oral tablet (1 source)Histamine-1 Receptor Antagonisttake 1 tablet by mouth every twenty- four hoursCetirizine HCl 10 MG 1 tablet Orally Once a day Activecholecalciferol 1.25 mg oral capsule (11 sources)Vitamin DStart: 27-39-3882itvb 1 capsule by mouth every week Cholecalciferol (Vitamin D3) 1,250 mcg (50,000 unit) capsule Active 1250 MCG PO every week October 02, 2024 12:00am Complies with drug therapytake 1 capsule by mouth once dailyCholecalciferol 25 MCG (1000 UT) 1 capsule Orally Once a day Activetake 1 capsule by mouth once dailyCholecalciferol 125 MCG (5000 UT) 1 capsule Orally Once a day Aatvww16 hr desvenlafaxine succinate 50 mg extended release oral tablet (10 sources)Serotonin and Norepinephrine Reuptake InhibitorStart: 89-97-8109gobf 1 tablet by mouth once dailydesvenlafaxine 50 mg Tab- 50 mg = 1 tab(s), Oral, Daily, Refills(s) 0 Start Date: 02/12/24 Status: OrderedStart: 06-30-2023 End: 86-64-3108ruux 1 tablet by mouth once dailyDesvenlafaxine Succinate 100 mg tablet extended release 24 hr Discontinued 100 MG PO Daily June 30, 2023 1:00am January 14, 2025 11:11amStart: 10-28-2022 End: 46-45-9303kakr 1 tablet by mouth once dailyDesvenlafaxine Succinate 50 mg tablet extended release 24 hr Discontinued 50 MG PO Daily October 28, 2022 12:00am June 30, 2023 1:30amdocusate sodium 250 mg oral capsule (1 source)take 1 capsule by mouth once daily as neededDocusate Sodium 250 MG 1 capsule as needed Orally Once a day NEEDED Activeescitalopram 20 mg oral tablet (6 sources)Serotonin Reuptake InhibitorStart: 00-31-7155hrws 1 tablet by mouth once dailyLexapro 20 mg Tab 20 mg = 1 tab(s), Oral, Daily, Refills(s) 0 Start Date: 02/12/24 Status: OrderedStart: 10-28-2022 End: 65-51-5228wunx 1 tablet by mouth once dailyEscitalopram Oxalate 20 mg tablet Discontinued 20 MG PO Daily October 28, 2022 12:00am June 30, 2023 1:27am72 hr fentaNYL 0.1 mg/hr transdermal system (20 sources)Opioid AgonistStart: 34-78-8864Fcynpsyf 100 mcg/hr patch 72 hour Active 1 PATCH TRANSDERML Q72H October 28, 2022 12:00am Complies with drug therapy Start: 91-53-8077Uhqsujxmh-100 transdermal film, extended release = 1 patch(es), Topical, q72hr, EA, Refills(s) 0 Start Date: 09/16/20 Status: OrderedStart: 08-31-2018 End: 29-99-6844Dmkakyrs 50 mcg/hr Patch 72 Hour Discontinued 1 PATCH TRANSDERML Q72H August 31, 2018 1:00am October 28, 2022 7:54pmfentaNYL 100 MCG/HR 1 patch to skin Transdermal EVERY 72 HOURS ActivefentaNYL 50 MCG/HR 1 patch to skin Transdermal CHANGE EVERY 72 HOURS Activeferrous sulfate 325 mg oral tablet (10 sources)Start: 49-07-8200vkju 1 tablet by mouth once dailyFerrous Sulfate (Ferosul) 325 mg (65 mg iron) tablet Active 325 MG PO Daily January 14, 2025 12:00amComplies with drug therapyStart: 07-03-2023 End: 81-21-8749yjzr 1 tablet by mouth once dailyFerrous Sulfate 324 mg (65 mg iron) Tablet,Delayed Release (Dr/Ec) Discontinued 324 MG PO Daily July 03, 2023 1:00am March 26, 2024 12:10pmStart: 08-31-2018 End: 93-67-3965wynr 1 tablet by mouth once dailyFerrous Sulfate 325 mg (65 mg iron) Tablet Discontinued 325 MG PO Daily August 31, 2018 1:00am June 30, 2023 1:30amfludrocortisone acetate 0.1 mg oral tablet (6 sources)take 2 tablets by mouth in the morning, then take 1 tablet by mouth twice daily in the eveningFludrocortisone Acetate 0.1 MG 2 tablets in am, 1 tablet in pm Orally twice a day Nwukef20 actuat fluticasone furoate 0.1 mg/actuat / vilanterol 0.025 mg/actuat dry powder inhaler (11 sources)Corticosteroid, beta2-Adrenergic AgonistStart: 03-26-2024 End: 98-56-9885Mvvksoswzvr Furoate-Vilanterol (Breo Ellipta) 100-25 mcg/dose blister with device Active 1 INH INHALATION Daily as needed January 14, 2025 11:11am Complies with drug therapyStart: 51-20-3618ofpe 1 puff(s) by inhalation once dailyBreo Ellipta 100 mcg-25 mcg inhalation powder 1 puff(s), Inhalation, Daily, 30 dose unit Start Date: 09/08/20 Status: OrderedStart: 08-31-2018 End: 83-19-8705Tsdoepesfmq Furoate-Vilanterol (Breo Ellipta) 100-25 mcg/dose Blister With Device Discontinued 1 INH INHALATION Daily August 31, 2018 1:00am June 30, 2023 1:25amStart: 08-31-2018 End: 84-34-8974Ekmadjgdidv Furoate-Vilanterol (Breo Ellipta) 100-25 mcg/dose Blister With Device Discontinued 1 INH INHALATION Daily August 31, 2018 12:00am June 30, 2023 12:25amStart: 16-05-6163Hnedypghste Furoate-Vilanterol (Breo Ellipta) 100-25 mcg/dose Blister With Device Active 1 INH INHALATION Daily August 31, 2018 1:00amtake 1 puff(s) by inhalation once dailyBREO ELLIPTA 100 mcg/25 mcg 1 puff Inhalation daily ActivehydroCHLOROthiazide 50 mg / triamterene 75 mg oral tablet (6 sources)Potassium-sparing Diuretic, Thiazide Diuretictake 1 tablet by mouth every twenty-four hoursTriamterene-HCTZ 75-50 MG 1 tablet in the morning Orally Once a day Activelevothyroxine sodium 0.1 mg oral tablet (20 sources)l-ThyroxineStart: 47-44-9129qlce 1 tablet by mouth once daily Levothyroxine 100 mcg tablet Active 100 MCG PO Daily October 28, 2022 12:00am Complies with drug therapyStart: 30-02-3916iteg 1 tablet by mouth once daily levothyroxine 100 mcg (0.1 mg) Tab 100 mcg = 1 tab(s), Oral, Daily Start Date: 09/08/20 Status: OrderedStart: 08-31-2018 End: 97-16-7941expb 1 tablet by mouth once dailyLevothyroxine (Synthroid) 88 mcg Tablet Discontinued 88 MCG PO Daily August 31, 2018 1:00am October 28, 2022 9:37pm linaclotide 0.29 mg oral capsule (18 sources)Guanylate Cyclase-C AgonistStart: 10-02-2024 End: 69-01-6683evnj 1 capsule by mouth once daily as neededLinaclotide (Linzess) 290 mcg capsule Active 290 MCG PO Daily as needed January 14, 2025 11:12am Comp lies with drug therapyStart: 83-57-5314frfg 1 capsule by mouth once dailyLinzess 290 mcg oral capsule 290 mcg = 1 cap(s), Oral, Daily, Refills(s) 0 Start Date: 02/12/24 Status: OrderedStart: 10-28-2022 End: 73-36-0055Qovooejxrfe (Linzess) 290 mcg capsule Discontinued 290 MCG PO Every 48 hours October 28, 2022 12:00am October 02, 2024 2:58pmStart: 32-25-9098jthb 1 capsule by mouth once dailyLinaclotide (Linzess) 290 mcg capsule Active 290 MCG PO Daily October 28, 2022 12:00amLinzess 290 290mcg 1 PO every other day Active Linzess 290 290mcg 1 PO Every AM Activeliothyronine sodium 0.025 mg oral tablet (20 sources)l-TriiodothyronineStart: 01-85-7726kelu 1 tablet by mouth once daily Cytomel 25 mcg Tab 25 mcg = 1 tab(s), Oral, Daily, Refills(s) 0 Start Date: 02/12/24 Status: OrderedStart: 10-28-2022 End: 86-44-7188mmox 1 tablet by mouth once dailyLiothyronine 25 mcg Tablet Discontinued 25 MCG PO Daily June 30, 2023 1:00am March 26, 2024 12:09pm take 1 tablet by mouth every twenty-four hoursLiothyronine Sodium 25 MCG 1 tablet on an empty stomach Orally Once a day Activeloratadine 10 mg oral tablet (7 sources)Start: 76-45-7438zjad 1 tablet by mouth once daily as needed Loratadine (Claritin) 10 mg Tablet Active 10 MG PO Daily as needed for Allergy Symptoms June 29, 2023 1:00am Complies with drug therapyMulti For Her - (9 sources)Multi For Her - as directed Orally Activeondansetron 4 mg disintegrating oral tablet (15 sources)Serotonin-3 Receptor AntagonistStart: 97-20-0489nbcr 1 tablet by mouth every six hours as needed for nauseaondansetron 4 mg Dis Tab 4 mg = 1 tab(s), Oral, q6hr, PRN Nausea/Vomiting, Refills(s) 0 Start Date:02/12/24 Status: OrderedStart: 55-17-7378Rimqqdlvyos Hcl (Zofran) 4 mg Tablet Active 4 MG PO every 6 to 8 hours as needed for Nausea And Vomiting August 31, 2018 1:00am Complies with drug therapytake 1 tablet by mouth once daily as neededOndansetron 4 MG 1 tablet on the tongue and allow to dissolve Orally Once a day PRN Active primidone 50 mg oral tablet (20 sources)Anti-epileptic AgentStart: 76-16-9396tkrr 150 mg by mouth at bedtime Primidone Active 150 MG PO Bedtime March 26, 2024 12:08pmStart: 02-12-2024 take 3 tablets by mouth once dailyprimidone 50 mg Tab 150 mg = 3 tab(s), Oral, Daily, Refills(s) 0 Start Date: 02/12/24 Status: OrderedStart: 06-29-2023 End: 61-45-3423cfqt 1 tablet by mouth at bedtimePrimidone 50 mg tablet Active 150 MG PO Bedtime March 26, 2024 12:08pm Complies with drug therapyStart: 06-29-2023 End: 02-41-0046tmif 100 mg by mouth at bedtimePrimidone Discontinued 100 MG PO Bedtime June 29, 2023 1:00am March 26, 2024 12:11pmStart: 08-31-2018 End: 18-80-4116ztos 1 tablet by mouth twice dailyPrimidone 50 mg Tablet Discontinued 100 MG PO Twice daily August 31, 2018 1:00am September 04, 2018 7: 59amStart: 08-31-2018 End: 78-29-5835atyr 100 mg by mouth twice dailyPrimidone Discontinued 100 MG PO Twice daily August 31, 2018 1:00am September 04, 2018 7:59amtake 2 tablets by mouth every twenty-four hoursPrimidone 50 MG 2 tablet Orally Once a day Active Probiotic (Lactobacillus) - (1 source)take 3 capsules by mouth once dailyProbiotic (Lactobacillus) - as directed Orally 3 CAPSULES DAILY Activepromethazine hydrochloride 12.5 mg oral tablet (1 source)Phenothiazinetake 1 tablet by mouth every six hoursPromethazine HCl 12.5 MG 1 tablet as needed Orally every 6 hrs Activerizatriptan 10 mg disintegrating oral tablet (1 source)Serotonin-1b and Serotonin-1d Receptor Agonisttake 1 tablet by mouth every two hours as needed, then take 3 tablets by mouth every twenty-four hours as neededRizatriptan Benzoate 10 MG 1 tablet Orally EVERY 2 HOURS PRN, DO NOT EXCEED 3 DOSES PER 24 HRS. Activesacubitril 49 mg / valsartan 51 mg oral tablet (20 sources)Angiotensin 2 Receptor BlockerStart: 00-54-7731gqtj 1 tablet by mouth twice dailySacubitril-Valsartan (Entresto) 49-51 mg tablet Active 1 TAB PO Twice daily October 02, 2024 12:00amComplies with drug therapyStart: 06-29-2023 End: 37-90-6492vicz 1 tablet by mouth twice dailySacubitril-Valsartan (Entresto) 97-103 mg tablet Discontinued 1 TAB PO Twice daily June 29, 2023 1:00am March 26, 2024 12:10pm On Hold: Resume when kidney function has returned to baseline pernephrologyStart: 10-28-2022 End: 09-13-7094muju 1 tablet by mouth twice dailySacubitril-Valsartan (Entresto) 49-51 mg tablet Discontinued 1 TAB PO Twice daily October 28, 2022 12:00am June 30, 2023 12:34amtake 3 tablets by mouth twice dailySacubitril-Valsartan 97-103 MG 3 tablet Orally Twice a day Activetake 3 tablets by mouth twice daily Sacubitril-Valsartan 24-26 MG 3 tablet Orally Twice a day ActivetiZANidine 4 mg oral capsule (17 sources)Central alpha-2 Adrenergic AgonistStart: 05-44-9414mlwu 1 capsule by mouth twice daily as neededTizanidine 4 mg capsule Active 4 MG PO Twice daily as needed October 02, 2024 12:00am Complies with drug therapyStart: 09-08-2020 take 2 tablets by mouth every eight hourstiZANidine 4 mg Tab 8 mg = 2 tab(s), Oral, q8hr Start Date: 09/08/20 Status: OrderedStart: 08-31-2018 End: 12-01-3614mxpa 1 capsule by mouth three times daily as neededTizanidine 4 mg Capsule Discontinued 4 MG PO Three times daily as needed for Muscle Spasticity August 31, 2018 1:00am March 26, 2024 12:10pmStart: 08-31-2018 Tizanidine Active 4 MG PO every 6 to 8 hours August 31, 2018 1:00amtake 1 tablet by mouth every six hourstiZANidine HCl 4 MG 1 tablet as needed Orally four times a day Activevitamin b12 1 mg/ml injectable solution (3 sources)Vitamin X52Hjofj: 27-93-2156zrpjpi 100 ug by subcutaneous injection every monthCyanocobalamin (Vitamin B-12) 1,000 mcg/mL kit Active 100 MCG SUBCUT every month October 02, 2024 12:00am Complies with drug therapyStart: 02-12-2024 inject 1000 ug by intramuscular injection every monthcyanocobalamin 1000 mcg/mL Inj 1,000 mcg, IntraMuscular, qMonth, Refills(s) 0 Start Date: 02/12/24 Status: Orderedvitamin e 180 mg oral capsule (1 source)Start: 97-10-3657qfbj 1 capsule by mouth once dailyVitamin E (Dl, Acetate) 180 mg (400 unit) capsule Active 180 MG PO Daily January 14, 2025 12:00am Complies with drug therapy Completed/Discontinued Medications MedicationDrug Class(es)DatesSig (Normalized)Sig (Original)acetaminophen 325 mg / oxyCODONE hydrochloride 5 mg oral tablet (19 sources)Opioid AgonistStart: 06-29-2023 End: 29-26-0778wtmu 1 tablet by mouth twice daily as needed for painOxycodone- Acetaminophen (Percocet) 5-325 mg tablet Discontinued 1 TAB PO 2 times daily as needed for Pain June 29, 2023 1:00am June 30, 2023 11:41amStart: 43-91-6848llfx 1 tablet by mouth every six hours as needed for painOxycodone- Acetaminophen (Percocet) 5-325 mg Tablet Active 1 - 2 TAB PO Q6H as needed for Pain 2018 1:00am Complies with drug therapyStart: 18-37-1199fvye 2 tablets by mouth every four to six hoursOxycodone-Acetaminophen (Percocet) 5-325 mg Tablet Active 2 TAB PO EVERY 4-6 HOURS August 31, 2018 1:00amtake 2 tablets by mouth every four hours as neededoxyCODONE-Acetaminophen 5-325 MG 2 tablet as needed Orally every 4 hrs PRN Activeapixaban 5 mg oral tablet (4 sources)Factor Xa InhibitorStart: 03-26-2024 End: 21-32-0185ctrj 1 tablet by mouth twice dailyApixaban (Eliquis) 5 mg tablet Discontinued 5 MG PO Twice daily March 26, 2024 12:00am January 14, 2025 11:10amStart: 29-79-0809thum 1 tablet by mouth twice dailyEliquis 5 mg oral tablet 5 mg = 1 tab(s), Oral, BID, Refills(s) 0 Start Date: 02/12/24 Status: OrderedARIPiprazole 2 mg oral tablet (14 sources)Atypical AntipsychoticStart: 10-28-2022 End: 97-58-7057vmch 1 tablet by mouth once dailyAripiprazole 2 mg tablet Discontinued 2 MG PO Daily October 28, 2022 12:00am October 02, 2024 2:49pmaspirin 81 mg delayed release oral tablet (3 sources)Platelet Aggregation Inhibitor, Nonsteroidal Anti-inflammatory Drug Start: 10-02-2024 End: 49-85-5369ojgl 1 tablet by mouth once dailyAspirin (Adult Aspirin Regimen) 81 mg tablet,delayed release (DR/EC) Discontinued 81 MG PO Daily October 02, 2024 12:00am January 14, 2025 11:10amStart: 15-50-6139socvvan 81 mg Chew Tab 81 mg = 1 tab(s), Chewed, Daily, Refills(s) 0 Start Date: 02/12/24 Status: Ordered bumetanide 1 mg oral tablet (20 sources)Loop DiureticStart: 10-02-2024 End: 47-44-4365obtq 1 tablet by mouth twice dailyBumetanide 1 mg tablet Discontinued 2 MG PO Twice daily October 02, 2024 2:50pm October 02, 2024 3:17pm Start: 03-26-2024 End: 64-77-5030ycwy 1 tablet by mouth three times daily as neededBumetanide 1 mg tablet Discontinued 2 MG PO Three times daily as needed March 26, 2024 12:03pm October 02, 2024 2:58pmStart: 39-33-9619lcmz 2 mg by mouth three times dailyBumetanide Active 2 MG PO Three times daily March 26, 2024 12:03pmStart: 31-89-5401nmhd 1 tablet by mouth twice dailybumetanide 2 mg Tab 2 mg = 1 tab(s), Oral, BID, Refills(s) 0 Start Date: 02/12/24 Status: OrderedStart: 07-03-2023 End: 64-67-6607kyqf 1 tablet by mouth twice dailyBumetanide 1 mg tablet Discontinued 2 MG PO Twice daily 60 July 03, 2023 2:00pm March 26, 2024 12:11pm Take twice dailyStart: 07-03-2023 End: 34-40-0055jsdx 6 mg by mouth once daily as neededBumetanide 1 mg tablet Discontinued 2 MG PO Twice daily 60 July 03, 2023 2:00pm July 03, 2023 1:50pm MAY TAKE UP TO 6 MG DAILY PRNStart: 07-03-2023 End: 62-03-1542vvbr 6 mg by mouth once daily as neededBumetanide 1 mg tablet Discontinued 2 MG PO Twice daily 60 July 03, 2023 2:00pm July 03, 2023 1:50pm MAY TAKE UP TO 6 MG DAILY PRNStart: 07-03-2023 End: 07-64-5603wnmm 6 mg by mouth once daily as neededBumetanide Discontinued 2 MG PO Twice daily 60 July 03, 2023 2:00pm July 03, 2023 1:50pm MAY TAKE UP TO 6 MG DAILY PRNStart: 07-03-2023 End: 73-84-1381szmx 2 mg by mouth twice dailyBumetanide Discontinued 2 MG PO Twice daily 60 July 03, 2023 2:00pm March 26, 2024 12:11pm Take twice dailyStart: 07-03-2023 End: 90-10-1945idus 6 mg by mouth once daily as neededBumetanide Discontinued 2 MG PO Twice daily 60 July 03, 2023 1:00pm July 03, 2023 12:50pm MAY TAKE UP TO 6 MG DAILY PRNStart: 10-28-2022 End: 41-02-2296qcux 6 mg by mouth once daily as needed for edemaBumetanide 1 mg tablet Discontinued 2 MG PO Daily as needed for Edema October 28, 2022 12:00am 2023 1:49pm MAY TAKE UP TO 6 MG DAILY PRNStart: 10-28-2022 End: 92-30-4895uapb 6 mg by mouth once daily as neededBumetanide Discontinued 2 MG PO Daily October 28, 2022 12:00am July 03, 2023 1:49pm MAY TAKE UP TO6 MG DAILY PRNStart: 16-88-4196hafw 1 mg by mouth three times dailyBumetanide Active 1 MG PO Three times daily October 28, 2022 12:00amStart: 08-31-2018 End: 59-28-5185irdr 1 tablet by mouth once dailyBumetanide 2 mg Tablet Discontinued 2 MG PO Daily August 31, 2018 1:00am October 28, 2022 7:46pmtake 1 tablet by mouth every twenty-four hoursBumetanide 1 MG 1 tablet Orally Once a day Lpzacx98 hr buPROPion hydrochloride 300 mg extended release oral tablet (5 sources)AminoketoneStart: 08-31-2018 End: 07-30-5380ghnn 1 tablet by mouth once daily in the morningBupropion Hcl (Wellbutrin Xl) 300 mg Tablet Extended Release 24 Hr Discontinued 300 MG PO Every morning August 31, 2018 1:00am June 30, 2023 1:27amcalcium acetate 667 mg oral capsule (9 sources)Start: 10-28-2022 End: 71-64-5087bhxb 1 capsule by mouth twice daily at mealtimeCalcium Acetate(Phosphat Bind) 667 mg capsule Discontinued 667 MG PO Twice daily October 28, 2022 12:00am January 14, 2025 11:10am WITH MEALStake 2 tablets by mouth every eight hoursCalcium Acetate (Phos Binder) 667 MG 2 tablets with meals Orally Three times a day Activetake 2 capsules by mouth every twelve hours Calcium Acetate (Phos Binder) 667 MG 2 capsules with meals Orally TWICE A DAY Activediclofenac sodium 0.01 mg/mg topical gel (1 source)Nonsteroidal Anti-inflammatory DrugStart: 19-45-9864Kebcztox Gel 1% Gel 2 gm, Topical, BID, Refill(s) 0 Start Date: 02/12/24 Status: Ordered dicyclomine hydrochloride 20 mg oral tablet (6 sources)AnticholinergicStart: 10-28-2022 End: 13-65-7319Kngxvtfqgzh 20 mg Tablet Discontinued 20 MG PO As Directed as needed for Abdominal Pain October 28, 2022 12:00am June 30, 2023 1:30amtake 1 tablet by mouth four times daily as neededDicyclomine HCl 20 MG 1 tablet Orally Four times a day NEEDED Activedoxepin hydrochloride 10 mg oral capsule (3 sources)Tricyclic AntidepressantStart: 10-02-2024 End: 03-32-3671rcvk 1 capsule by mouth once dailyDoxepin 10 mg capsule Discontinued 10 MG PO Daily October 02, 2024 12:00am January 14, 2025 11:11am Start: 56-64-3019fbkr 1-2 capsules by mouth once daily at bedtimedoxepin 10 mg Cap 1-2 caps, Oral, Once a day (at bedtime), Refills(s) 0 Start Date: 02/12/24 Status:OrderedDULoxetine 60 mg delayed release oral capsule (14 sources)Serotonin and Norepinephrine Reuptake InhibitorStart: 10-28-2022 End: 92-45-3890dclu 2 capsules by mouth once dailyDuloxetine 60 mg capsule,delayed release(DR/EC) Discontinued 120 MG PO Daily October 28, 2022 12:00am March 26, 2024 12:05pmStart: 10-28-2022 End: 18-79-8966zwzw 120 mg by mouth once dailyDuloxetine Discontinued 120 MG PO Daily October 28, 2022 12:00am March 26, 2024 12:05pmtake 1 capsule by mouth every twelve hoursDULoxetine HCl 60 MG 1 capsule Orally Twice a day Active fluconazole 100 mg oral tablet (5 sources)Azole AntifungalStart: 08-31-2018 End: 20-03-2644hbfu 1 tablet by mouth once dailyFluconazole 100 mg Tablet Discontinued 100 MG PO Daily August 31, 2018 1:00am September 04, 2018 7:59am gabapentin 100 mg oral capsule (4 sources)Anti-epileptic AgentStart: 06-29-2023 End: 02-06-4706sbzr 1 tablet by mouth three times dailyGabapentin 100 mg Tablet Discontinued 100 MG PO Three times daily June 29, 2023 1:00am March 26, 2024 12:05pmhydrALAZINE hydrochloride 25 mg oral tablet (19 sources)Arteriolar VasodilatorStart: 10-02-2024 End: 34-80-5664hdjf 1 tablet by mouth four times dailyHydralazine 25 mg tablet Discontinued 25 MG PO Four times daily October 02, 2024 12:00am January 14, 2025 11:12amStart: 09-08-2020 End: 12-82-4541qlyp 1 tablet by mouth three times dailyHydralazine 50 mg Tablet Discontinued 50 MG PO Three times daily October 28, 2022 12:00am June 1:22amhyoscyamine sulfate 0.125 mg oral tablet (12 sources)Start: 03-26-2024 End: 57-72-4090dqjg 1 tablet by mouth once daily as neededHyoscyamine Sulfate 0.125 mg tablet Discontinued 0.125 MG PO Daily as needed March 26, 2024 12:00 am October 02, 2024 2:55pmtake 1 tablet by mouth every six hoursHyoscyamine Sulfate 0.125 MG 1 tablet on the tongue and allow to dissolve Orally Four times a day ActivelevoFLOXacin 750 mg oral tablet (5 sources)Quinolone AntimicrobialStart: 08-31-2018 End: 68-89-2277idut 1 tablet by mouth once dailyLevofloxacin 750 mg Tablet Discontinued 750 MG PO Daily August 31, 2018 1:00am September 04, 2018 7:59am metoclopramide 5 mg oral tablet (13 sources)Dopamine-2 Receptor AntagonistStart: 08-31-2018 End: 10-07-4449fylz 1 tablet by mouth once dailyMetoclopramide Hcl (Reglan) 5 mg Tablet Discontinued 5 MG PO Daily August 31, 2018 1:00am June 30, 2023 1:26amtake 1 tablet by mouth every six hoursMetoclopramide HCl 10 MG 1 tablet before meals Orally Four times a day Activemetoprolol tartrate 25 mg oral tablet (14 sources)beta-Adrenergic BlockerStart: 08-31-2018 End: 84-24-2469jlxb 1 tablet by mouth twice dailyMetoprolol Tartrate 25 mg Tablet Discontinued 25 MG PO Twice daily August 31, 2018 1:00am March 26, 2024 12:10pmStart: 20-12-2898emsc 50 mg by mouth twice dailyMetoprolol Tartrate Active 50 MG PO Twice daily August 31, 2018 1:00amtake 1 tablet by mouth every twelve hoursMetoprolol Tartrate 50 MG 1 tablet with food Orally Twice a day Not-Taking/LTERh-Ijsjcwq-Jdo-Iron Fm-Fa-Vitk (Multi For Her) 18 mg iron-600 mcg- 80 mcg Tablet (5 sources)Start: 08-31-2018 End: 92-06-5131yora 1 tablet by mouth once fbwifOl-Wqiduqr-Qlv-Iron Fm-Fa-Vitk (Multi For Her) 18 mg iron-600 mcg-80 mcg Tablet Discontinued 1 TAB PO Daily August 31, 2018 1:00am June 30, 2023 1:26amStart: 08-31-2018 End: 00-61-9265zecu 1 tablet by mouth once xbtlbUl-Jxevemf-Sxo-Iron Fm-Fa-Vitk (Multi For Her) 18 mg iron-600 mcg-80 mcg Tablet Discontinued 1 TAB PO Daily August 31, 2018 12:00am June 30, 2023 12:26amStart: 16-61-0922itsp 1 tablet by mouth once qrwgnOf-Zowvyma-Ibz-Iron Fm-Fa-Vitk (Multi For Her) 18 mg iron-600 mcg-80 mcg Tablet Active 1 TAB PO Daily August 31, 2018 1:00ampantoprazole 40 mg delayed release oral tablet (20 sources)Proton Pump InhibitorStart: 10-02-2024 End: 14-99-0763jdoi 1 tablet by mouth once dailyPantoprazole 40 mg tablet,delayed release (DR/EC) Discontinued 40 MG PO Daily October 02, 2024 12:00am January 14, 2025 11:13amStart: 99-43-2094dnfo 1 tablet by mouth once dailyProtonix 40 mg Tab-DR 40 mg = 1 tab(s), Oral, Daily, Refills(s) 0 Start Date: 02/12/24 Status: OrderedStart: 06-30-2023 End: 78-54-7689fwgs 1 tablet by mouth twice dailyPantoprazole (Protonix) 40 mg Tablet,Delayed Release (Dr/Ec) Discontinued 40 MG PO Twice daily June 30, 2023 1:00am March 26, 2024 12:10pmStart: 08-31-2018 End: 35-36-0174wpla 2 tablets by mouth twice dailyPantoprazole (Protonix) 20 mg Tablet,Delayed Release (Dr/Ec) Discontinued 40 MG PO Twice daily August 31, 2018 1:00am June 30, 2023 11:41amStart: 37-33-9061ggky 1 tablet by mouth once dailyPantoprazole (Protonix) 20 mg Tablet,Delayed Release (Dr/Ec) Active 20 MG PO Daily August 31, 2018 1:00ampotassium chloride 10 meq extended release oral capsule (9 sources)Start: 08-31-2018 End: 69-35-2770yajc 1 capsule by mouth once dailyPotassium Chloride 10 mEq Capsule, Extended Release Discontinued 10 MEQ PO Daily August 31, 2018 1:00am June 30, 2023 1:30amtake 1 tablet by mouth every twenty-four hoursKlor-Con 10 10 MEQ 1 tablet with food Orally daily Activetake 1 tablet by mouth every twelve hoursPotassium Chloride ER 10 MEQ 1 tablet with food Orally Twice a day Activepramipexole dihydrochloride 1 mg oral tablet (5 sources)Nonergot Dopamine AgonistStart: 06-30-2023 End: 80-00-3606kceh 1 tablet by mouth once dailyPramipexole (Mirapex) 1 mg Tablet Discontinued 1 MG PO Daily June 30, 2023 1:00am January 14, 2025 11:13amrosuvastatin calcium 20 mg oral tablet (3 sources)HMG-CoA Reductase InhibitorStart: 03-26-2024 End: 76-43-1390xuye 1 tablet by mouth once dailyRosuvastatin 20 mg tablet Discontinued 20 MG PO Daily March 26, 2024 12:00am October 02, 2024 2:57pm sevelamer carbonate 800 mg oral tablet (15 sources)Phosphate BinderStart: 06-29-2023 End: 80-93-6511ggmp 1 tablet by mouth three times daily at mealtimeSevelamer Carbonate (Renvela) 800 mg tablet Discontinued 800 MG PO Three times daily 90 January 18, 2024 9:55am March 26, 2024 12:10pm must administer with a meal/foodsodium chloride 1000 mg oral tablet (5 sources)Start: 08-31-2018 End: 22-63-9646Mwkbfd Chloride 1 gram Tablet Discontinued 1000 MG PO 1 to 4 times daily as needed for Electrolyte Replenishment August 31, 2018 1:00am September 04, 2018 8:01amStart: 08-31-2018 End: 61-33-1219Zthrql Chloride Discontinued 1000 MG PO 1 to 4 times daily August 31, 2018 1:00am September 04, 2018 8:01amspironolactone 50 mg oral tablet (8 sources)Aldosterone AntagonistStart: 10-02-2024 End: 74-32-6756ssrm 1 tablet by mouth twice dailySpironolactone 50 mg tablet Discontinued 50 MG PO Twice daily 60 October 02, 2024 12:00am December 11:14amStart: 25-32-6143aior 1 tablet by mouth twice dailyspironolactone 100 mg Tab 100 mg = 1 tab(s), Oral, BID, Refills(s) 0 Start Date: 02/12/24 Status: Ord eredStart: 08-31-2018 End: 48-72-6441aoba 2 tablets by mouth once dailySpironolactone 50 mg Tablet Discontinued 100 MG PO Daily August 31, 2018 1:00am June 30, 2023 1:31am Start: 08-31-2018 End: 25-75-4753wxlx 100 mg by mouth once dailySpironolactone Discontinued 100 MG PO Daily August 31, 2018 1:00am June 30, 2023 1:31amtorsemide 100 mg oral tablet (2 sources)Loop DiureticStart: 10-02-2024 End: 71-36-4665Camxwzbnc 100 mg tablet Discontinued 50 MG PO Twice daily 60 October 02, 2024 12:00am January 14, 2025 11:14amUrea (Ure-Na) 15 gram Powder In Packet (5 sources)Start: 09-04-2018 End: 36-99-2386Bitc (Ure-Na) 15 gram Powder In Packet Discontinued 30 GM PO Daily September 04, 2018 12:00am June 30, 2023 1:30amStart: 09-04-2018 End: 35-91-7717Gvwd (Ure-Na) 15 gram Powder In Packet Discontinued 30 GM PO Daily September 03, 2018 11:00pm June 30, 2023 12:30amStart: 58-07-7541Axtm (Ure-Na) 15 gram Powder In Packet Active 30 GM PO Daily September 04, 2018 12:00amVitamin D 50,000 intl units (1.25 mg) oral capsule (1 source)Start: 16-90-0574yuhi 1 capsule by mouth every weekVitamin D 50,000 intl units (1.25 mg) oral capsule 50,000 International_Unit = 1 cap(s), Oral, qWeek, Refills(s) 0 Start Date: 02/12/24 Status: Ordered Problems Active Problems Problem ClassificationProblemDateDocumented DateEpisodic/ChronicAcute and unspecified renal failure (7 sources)Acute kidney failure, unspecified; Translations: [Acute renal failure syndrome]Onset: 049761-49-7905YhemuyksTjpeu cerebrovascular disease (1 source)Occlusion of cerebral artery with strokeOnset: ChronicAcute posthemorrhagic anemia (1 source)Acute posthemorrhagic anemia; Translations: [ACUTE POSTHEMORRHAGIC ANEMIA]Onset: 29-99-7355TqrnpbszGazlhfd disorders (2 sources)Anxiety disorder, unspecified; Translations: [Anxiety]Onset: 627551-39-8469DeavjqtYfzajv; peripheral; and visceral artery aneurysms (1 source)Dissection of vertebral artery; 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]Onset: 06-30-2393DjvrgdkJjqwkegow infection; unspecified site (1 source)Unspecified Escherichia coli [E. coli] as the cause of diseases classified elsewhere; Translations:[UNS E COLI CAUSE DX CLASS ELSEWHERE]Onset: 75-49-0768VoqukeaiAljbazo kidney disease (20 sources)Chronic kidney disease stage 3; Translations: [Chronic kidney disease, stage 3 (moderate)]Onset: 951829-94-3160BskhosrFumpmzh on above: Problem List clean-up per request of Phys. EHR CmteChronic obstructive pulmonary disease and bronchiectasis (1 source)Chronic obstructive pulmonary disease, unspecified; Translations: [COPD UNSPECIFIED]Onset: 74-22-5460VqfxfbrVmzglzavmwjm of device; implant or graft (5 sources)Other mechanical complication of infusion catheter, initial encounter; Translations: [Other mechanical complication of other cardiac and vascular devices and implants, initial encounter]Onset: 88-59-0781Spqmaxhr Congestive heart failure; nonhypertensive (20 sources)Congestive heart failure; Translations: [Heart failure, unspecified] Onset: 06-16-2021 Resolved: 61-03-5584GuuumhbQvmdolk on above:Problem List clean-up per request of Phys. 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; Translations: [SEC SIDEROBLASTIC ANEMIA DUE DZ]Onset: 23-78-8753ChtzbyyJtriuxwfcc and other anemia (7 sources)Anemia; Translations: [Anemia, unspecified]65-58-1105Byezjcbp Deficiency and other anemia (5 sources)Anemia, unspecified; Translations: [Anemia, unspecified]Onset: 377083-21-2079IpjgddmqPaczmweuhl and other anemia (1 source)Iron deficiency anemia, unspecified; Translations: [IRON DEFICIENCY ANEMIA UNSPECIFIED]Onset: 81-89-5807FlllydxjZ Codes: Adverse effects of medical drugs (1 source)Adverse effect of vqnnjkonroo-gcnuitlpee-nfqokf inhibitors, initial encounter; Translations: [ADVERSE EFFECT ACEI INITIAL ENCNTR]Onset: 09-22-2022 EpisodicEpilepsy; convulsions (1 source)Epilepsy, unspecified, not intractable, without status epilepticus; Translations: [EPILEPSY UNS NOTINTRACT W/O SE]Onset: 41-20-3652WbpqrzgSvximgqdcp disorders (2 sources)Gastro-esophageal reflux disease without esophagitis; Translations: [Gastroesophageal reflux disease]Onset: 347195-06-3917HwtkydjDgmpihxxu hypertension (16 sources)Hypertensive disorder; Translations: [Essential (primary) hypertension]Onset: 578710-89-9669YlulxrxRorgc and electrolyte disorders (20 sources)Hypervolemia; Translations: [Fluid overload, unspecified]Onset: 06-16-2021 Resolved: 35-03-7000ThwdtdmvLiwy and other crystal arthropathies (1 source)Gouty arthropathyOnset: 841062-55-0448QydgcvmQvyhodva; including migraine (12 sources)Refractory migraine with aura; Translations: [Persistent migraine aura without cerebral infarction,intractable, without status migrainosus]Onset: 26-61-9111VurjxwiNknpsbdy; including migraine (5 sources)Headache; including migraine; Translations: [HEADACHE UNSPECIFIED] Onset: 12-02-8841Ddvqk valve disorders (6 sources)Rheumatic disorders of both mitral and tricuspid valves; Translations: [Rheumatic tricuspid insufficiency]Onset: ChronicHypertension with complications and secondary hypertension (20 sources)Hypertensive renal disease; Translations: [Hypertensive chronic kidney disease with stage 1 throughstage 4 chronic kidney disease, or unspecified chronic kidney disease]Onset: 06-16-2021 Resolved: 38-23-0687JscjjfqOznbzkq on above:Problem List clean-up per request of Phys. EHR CmteJoint disorders and dislocations; trauma-related (1 source)Subluxation of unspecified cervical vertebrae, initial encounter; Translations: [Subluxation of unspecified cervical vertebrae, initial encounter] Onset: 68-12-0420CawgletrUsiydfy and fatigue (10 sources)Asthenia; Translations: [Weakness]Onset: EpisodicMenopausal disorders (4 sources)Postmenopausal bleeding; Translations: [POSTMENOPAUSAL BLEEDING] Onset: 88-64-3438PjnpmugKada disorders (1 source)Depressive disorderOnset: 119415-38-7078AyovdlbPing disorders (1 source)Mood disorders; Translations: [DEPRESSION UNSPECIFIED]Onset: 10-69-2242Vuwock and vomiting (9 sources)Nausea; Translations: [Nausea]EpisodicNutritional deficiencies (20 sources)Vitamin D deficiency; Translations: [Vitamin D deficiency, unspecified]Onset: 01-11-2021 Resolved: 09-81-3275ZvldephZoqjmxltovlkeh (4 sources)Bilateral primary osteoarthritis of hip; Translations: [Unilateral primary osteoarthritis, left knee]Onset: 91-23-2642YcodprhJnpyuxagopuy (2 sources)Age-related osteoporosis without current pathological fracture; Translations: [Osteoporosis]Onset: 419369-16-8126YqzbmahAzvtj aftercare (5 sources)Polypharmacy ; Translations: [Other ad terminal makeup operator (current) drug therapy] 70-31-9928ZvyqkkxeYvhgu aftercare (1 source)Other residential (current) drug therapy; Translations: [OTH GROUP HOME 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 THERAPY]Onset: 99-46-6785AfaptoxeZixfw and ill-defined heart disease (1 source)Waupowliroyw62-99-6542VtjrfgoWzcru and ill-defined heart disease (1 source)Left atrial enlargementOnset: 483049-80-3048CucdusnSuoed circulatory disease (1 source)Personal history of transient ischemic attack (TIA), and cerebral infarction without residual deficits; Translations: [PERS HX TIA AND CI NO RESID DEFICIT]Onset: 22-78-3205BjdirupxOkjsa circulatory disease (1 source)Difficult venous uxhpzm69-54-9605JouogxydBcezv circulatory disease (1 source)Vascular yvomnqveswaoq86-85-1182YctgnvjhJixqv connective tissue disease (1 source)Presence of unspecified artificial knee joint; Translations: [PRESENCE UNS ARTIFICIAL KNEE JOINT]Onset: 66-91-9440HyqsnilXjlvy connective tissue disease (1 source)Myalgia, unspecified site; Translations: [MYALGIA UNSPECIFIED SITE] Onset: 80-01-9345BnsjkortBqeok connective tissue disease (1 source)Neuralgia and neuritis, unspecified; Translations: [NEURALGIA AND NEURITIS UNSPECIFIED]Onset: 93-11-6508AscvscknByclk connective tissue disease (3 sources)History of cervical spine fusion; Translations: [Arthrodesis status] 88-96-4747IfgwhrwqAvvpj diseases of kidney and ureters (9 sources)Hyperparathyroidism due to renal insufficiency; Translations: [Secondary hyperparathyroidism of renal origin]ChronicOther diseases of kidney and ureters (7 sources)Secondary hyperparathyroidism of renal origin; Translations: [Secondary hyperparathyroidism (of renal origin)]Onset: 06-16-2021 Resolved: 91-96-7335EarfjvtUcdco diseases of kidney and ureters (4 sources)Secondary hyperparathyroidism; Translations: [Secondary hyperparathyroidism of renal origin]60-95-5649DjtcpouNmukl diseases of kidney and ureters (1 source)Disorder of kidney and ureter, unspecified; Translations: [DISORDER KIDNEY AND URETER UNS]Onset: 35-21-0468RjttvhauRubtd diseases of veins and lymphatics (1 source)Bsvblmxzte57-74-9381VbxkibyMsesv diseases of veins and lymphatics (3 sources)Lymphedema, not elsewhere classified; Translations: [Lymphedema, not elsewhere classified]Onset: 20-31-8520ZfgdyqiNufrd diseases of veins and lymphatics (1 source)Venous insufficiency (chronic) (peripheral); Translations: [VENOUS INSUFF CHRONIC PERIPHERAL]Onset: 22-94-9129CvyndjzxAfhxh diseases of veins and lymphatics (1 source)Peripheral venous kosblxeifafjl46-85-1130ZvinqtpsJcgcw ear and sense organ disorders (1 source)Bilateral hearing lossOnset: 406956-25-2839FfpvetsXuzay endocrine disorders (18 sources)Hypoglycemia; Translations: [Hypoglycemia, unspecified]ChronicOther endocrine disorders (1 source)Pkoxhdlgyxbvlzlnare71-98-5198YrcbmsjYfrgu fractures (1 source)Other nondisplaced dens fracture, initial encounter for closed fracture; Translations: [Other nondisplaced dens fracture, initial encounter for closed fracture]Onset: 09-77-0344QotqhqwgJutaa fractures (1 source)Other displaced dens fracture, sequela; Translations: [Other displaced dens fracture, sequela]Onset: 48-61-2893KrldzcxvYeqhn fractures (1 source)Other displaced fracture of second cervical vertebra, subsequent encounter for fracture with delayed healing; Translations: [Other displaced fracture of second cervical vertebra, subsequent encounterfor fracture with delayed healing]Onset: 50-33-2650FjliwqgtAccqq gastrointestinal disorders (1 source)Irritable bowel syndromeOnset: 366220-56-5610ZhtjtunHbsbg gastrointestinal disorders (9 sources)Diarrhea; Translations: [Diarrhea, unspecified]EpisodicOther gastrointestinal disorders (1 source)Bariatric surgery status; Translations: [BARIATRIC SURGERY STATUS] Onset: 15-14-5732OwgrqwgdDdukd gastrointestinal disorders (1 source)H/O: nbvuppx53-64-6409BqaansmyUveek hereditary and degenerative nervous system conditions (1 source)Essential tremorOnset: 587810-05-8136PgqmctrPwody hereditary and degenerative nervous system conditions (1 source)Mild cognitive xjjezjgi43-63-5517DklfzmyMrjoh hereditary and degenerative nervous system conditions (1 source)Restless legsOnset: 206180-38-2914VvauawyXgpae lower respiratory disease (4 sources)Shortness of breath; Translations: [SHORTNESS OF BREATH]Onset: 74-06-6234WysihrszSvipo nervous system disorders (1 source)Other chronic pain; Translations: [OTHER CHRONIC PAIN]Onset: 72-53-6025BufkjzhTqxla nervous system disorders (4 sources)Chronic pain syndrome; Translations: [CHRONIC PAIN SYNDROME]Onset: 91-37-7402AaxnpvsWfrpb nervous system disorders (1 source)PolyneuropathyOnset: 802031-92-2620AbzmpxtGhqkh nervous system disorders (1 source)Paresthesia of skin; Translations: [PARESTHESIA OF SKIN]Onset: 62-15-4873YhpandguMmeoc non-traumatic joint disorders (2 sources)Other specific arthropathies, not elsewhere classified, left shoulder; Translations: [Other specific arthropathies, not elsewhere classified, left shoulder]Onset: 95-00-6618BdvovzlRgdpu non-traumatic joint disorders (5 sources)Pain in left knee; Translations: [PAIN IN LEFT KNEE]Onset: 08-17-2022 EpisodicOther non-traumatic joint disorders (1 source)Pain in left hip; Translations: [PAIN IN LEFT HIP]Onset: 11-10-2022 EpisodicOther non-traumatic joint disorders (5 sources)Pain in right hip; Translations: [PAIN IN RIGHT HIP]Onset: 09-20-2022 EpisodicOther nutritional; endocrine; and metabolic disorders (1 source)Morbid (severe) obesity due to excess calories; Translations: [MORBID SEVERE OBES D/T EXCESS ROGER]Onset: 50-21-4380WnnzwtlVkzuz nutritional; endocrine; and metabolic disorders (1 source)Body mass index (BMI) 34.0-34.9, adult; Translations: [BODY MASS INDEX BMI 34.0-34.9 ADULT]Onset: 09-25-7577LxtvbppItocy nutritional; endocrine; and metabolic disorders (1 source)Body mass index (BMI) 31.0-31.9, adult; Translations: [BODY MASS INDEX BMI 31.0-31.9 ADULT]Onset: 86-86-7866PlkjdjcCbykl nutritional; endocrine; and metabolic disorders (3 sources)Hyperphosphatemia; Translations: [Other disorders of phosphorus metabolism]ChronicOther nutritional; endocrine; and metabolic disorders (1 source)Other disorders of phosphorus metabolismChronicOther nutritional; endocrine; and metabolic disorders (1 source)Body mass index 30+ - bhpneno22-38-4639LcpwkpeYacbe nutritional; endocrine; and metabolic disorders (1 source)Obese class TDG34-90-8127VpbwshqQwcylgbji (2 sources)Flaccid hemiplegia affecting right dominant side; Translations: [Flaccid hemiplegia of right dominant side]Onset: 524861-62-0045Msgmpbw Phlebitis; thrombophlebitis and thromboembolism (4 sources)Personal history of other venous thrombosis and embolism; Translations: [H/O: Deep vein thrombosis]Onset: 736431-76-6354Nmajfmmy Pulmonary heart disease (8 sources)Pulmonary hypertension, unspecified; Translations: [Pulmonary hypertension]Onset: 85-35-3996KkarxjgJkogdrflv heart disease (1 source)Personal history of pulmonary embolism; Translations: [PERSONAL HISTORY PULMONARY EMBOLISM]Onset: 98-37-0142GdojvsdlTbvhxucd codes; unclassified (1 source)Acquired absence of both cervix and uterus; Translations: [ACQUIRED ABSENCE BOTH CERVIX AND UTERUS]Onset: 20-68-5824WaukcylyCeiilcvm codes; unclassified (1 source)Acquired absence of other specified parts of digestive tract; Translations: [ACQ ABSENCE OTH PART DIGESTV TRACT]Onset: 84-95-3002Eqfmroop Residual codes; unclassified (1 source)Edema, unspecified; Translations: [EDEMA UNSPECIFIED]Onset: 10-24-2022 EpisodicResidual codes; unclassified (1 source)Pain, unspecified; Translations: [Pain, unspecified]Onset: 10-13-2023 EpisodicSpondylosis; intervertebral disc disorders; other back problems (20 sources)Cervical spondylosis; Translations: [Spondylosis without myelopathy or radiculopathy, cervical region]Onset: 69-23-3723HvpopyiUffhqasliqw; intervertebral disc disorders; other back problems (12 sources)Muscle spasm of back; Translations: [Cervical disc disorder with radiculopathy, unspecified cervical region]Onset: 29-85-8603HmylzwglIlywpbxpwcz injury; contusion (3 sources)Contusion of right wrist, initial encounter; Translations: [Contusion of scalp, initial encounter]Onset: 95-82-7503AdtcahcbMemzuzf (1 source)Syncope and collapse; Translations: [Syncope and collapse]Onset: 35-94-6398CsgjkspkRcbrhaq disorders (3 sources)Hypothyroidism, unspecified; Translations: [Hypothyroidism]Onset: 585577-60-4144RbqsctlEuqibqgvqqhy (4 sources)LOW BACK PAIN, UNSPECIFIED; Translations: [LOW BACK PAIN, UNSPECIFIED]Onset: 24-27-7387Phlsfoihulwp (1 source)PERSONAL HISTORY OF COVID-19; Translations: [PERSONAL HISTORY OF COVID-19]Onset: 45-87-7104Lzdeechjpgta (1 source)CONTACT W/AND (SUSP) EXPOS COVID-19; Translations: [CONTACT W/AND (SUSP) EXPOS COVID-19]Onset: 41-22-3494Idibrwauqlpt (1 source)CHRN KIDNEY DISEASE STG 3 UNSP; Translations: [CHRN KIDNEY DISEASE STG 3 UNSP]Onset: 83-16-4455Toxsukwjvzji (1 source)Abrasion of skin of eactc58-51-7258Chpggwcsxeqr (1 source)Severe tricuspid valve regurgitationOnset: 495145-71-2552Hylcqjt tract infections (1 source)Urinary tract infection, site not specified; Translations: [UTI SITE NOT SPECIFIED]Onset: 75-48-3697Biefnrjj Past or Other Problems Problem ClassificationProblemDateDocumented DateEpisodic/ChronicChronic kidney disease (6 sources)Chronic kidney disease; Translations: [Chronic kidney disease, stage 3a]Onset: 06-16-2021 Resolved: 06-16-2021 Codes: Fall (1 source)Fall (on) (from) unspecified stairs and steps, initial encounter; Translations: [FALL ON FROM UNS STAIRS STEPS INIT]Onset: 04-58-5373Hejytdlm Fracture of upper limb (4 sources)Displaced fracture of triquetrum [cuneiform] bone, right wrist, initial encounter for closed fracture; Translations: [DSPL FX TRIQUETRUM BN RT WR INT ASHWIN]Onset: 50-39-7004OwzbvwmaDpdnhzdmrk disorders (1 source)Hormone replacement therapy; Translations: [HORMONE REPLACEMENT THERAPY]Onset: 26-77-7506WywrinoaTbrnhmolsnww breast conditions (1 source)Unspecified lump in the right breast, unspecified quadrant; Translations: [UNS LUMP IN RT BREAST UNS QUADRANT]Onset: 01-35-2108FcftfcunXatmt connective tissue disease (1 source)Other muscle spasm; Translations: [OTHER MUSCLE SPASM]Onset: 80-38-7772VgdoczvlWnaic connective tissue disease (1 source)FibromyalgiaOnset: 583760-90-9153KrognnksNsgls fractures (1 source)Unspecified displaced fracture of second cervical vertebra, initial encounter for closed fracture; Translations: [Unspecified displaced fracture of second cervical vertebra, initial encounter for closed fracture]Onset: 13-53-0936UzpsxwsdHfehy injuries and conditions due to external causes (3 sources)Unspecified injury of right wrist, hand and finger(s), initial encounter; Translations: [UNS INJ RTWRIST HAND FINGERS INIT]Onset: 08-06-2022 EpisodicOther injuries and conditions due to external causes (1 source)Other specified injuries of head, initial encounter; Translations: [OTH SPEC INJURIES HEAD INITIAL ENC]Onset: 23-52-6266OuaxadauLdmqy lower respiratory disease (1 source)Shortness of breath; Translations: [Shortness of breath]Onset: 93-53-7384IccazxyaDwylc nervous system disorders (1 source)Neurogenic claudicationOnset: 310643-99-8028LvedttfrDkzgl non- traumatic joint disorders (1 source)Pain in unspecified hip; Translations: [PAIN IN UNSPECIFIED HIP]Onset: 22-85-7944MzaosuhwMngrj non-traumatic joint disorders (2 sources)Pain in left shoulder; Translations: [Pain in left shoulder]Onset: 91-85-5602NgtqvhvjMqkzu screening for suspected conditions (not mental disorders or infectious disease) (8 sources)Other abnormal and inconclusive findings on diagnostic imaging of breast; Translations: [Encounter for screening mammogram for malignant neoplasm of breast]Onset: 34-02-0678RxbxvndbOivmdbvx codes; unclassified (1 source)Edema of lower extremityOnset: 816923-70-9048TadgfzefIibodkmz codes; unclassified (1 source)InsomniaOnset: 306484-52-3300LmfnjrpsQdmuhfc and strains (2 sources)Strain of muscle(s) and tendon(s) of the rotator cuff of left shoulder, initial encounter; Translations: [Strain of muscle(s) and tendon(s) of the rotator cuff of left shoulder, initial encounter]Onset: 12-97-9157Zptefedw Unclassified (1 source)LOW BACK PAIN, UNSPECIFIED; Translations: [LOW BACK PAIN, UNSPECIFIED] Onset: 10-27-2022 Results Test NameValueInterpretationReference RangeFacilityOffice Visiton 04-28-2025 Follow-up [id number] Mabel Moser 1960 F Date Provider Department Center 04/28/2025 BENJIE LERMA Family History Problem Relation Age of Onset Stroke Mother Heart failure Father Family Status - Relation Status Age at Mother Father Sister Brother Alive Level of Service:94515 [place] OFFICE/OUTPATIENT ESTABLISHED MOD MDM 30 MIN (25) [facility] [id number] Mabel Moser 1960 F Date Provider Department Center 04/08/2025 CARLOS MENJIVAR MP [facility] Family History Problem Relation Age of Onset Stroke Mother Heart failure Father Family Status - Relation Status Age at Mother Father Sister Brother Alive Level of Service:55772 [place] OFFICE/OUTPATIENT ESTABLISHED MOD MDM 30 MIN (57) Reason for Visit and Comments: Follow-up [841566]NormalTr[facility] CenterLaboratory - Chemistry and Chemistry - challengeOrdered By: Raeann Kirkpatrick on 01-02-2025 Bilirubin Ql (U)NegativeNEGATIVEPomerene HospitalGlucose (U) [Mass/Vol]NegativeNEGATIVEPomerene HospitalKetones Ql (U) NegativeNEGOhioHealth Doctors HospitalpH (U)7.0 [pH]5.0-9.0[facility]leveland Clinic Foundationpecific gravity (U) [Rel density]<=1.005Abnormal 1.005-1.025Pomerene HospitalUrobilinogen Qn (U)0.2 {Ligia'U}/dL0.2-1.0P[facility] HospitalMagnesium [Mass/Vol]2.9 mg/dLHigh1.8-2.4FClinton Memorial HospitalUrate [Mass/Vol]5.8 mg/dL 2.6-6.0[facility] HospitalLaboratory - Specimen informationOrdered By: Raeann Kirkpatrick on 23-92-3996Aqbmrzapqa (U)CLEARCLEARFClinton Memorial HospitalColor (U)LT. YELLOWYELLOWPomerene Hospital Laboratory - UrinalysisOrdered By: Raeann Kirkpatrick on 37-28-1506Qrjlgwzgp esterase Test strip Ql (U)TRACEAbnormalNEGOhioHealth Doctors HospitalNitrite Ql (U)NegativeNEGOhioHealth Doctors HospitalProtein (U) [Mass/Vol] 11.2 mg/dL<=11.9P[facility] HospitalProtein Ql (U)NegativeNEG/TRACE [facility] HospitalMicroalbumin [Mass/volume] in UrineOrdered By: Raeann Kirkpatrick on 84-42-4838Dmmdwcx DL <= 20 mg/L (U) [Mass/Vol]mg/dL<=30.0 [facility]ome[facility] HospitalNo Panel InformationOrdered By: Raeann Kirkpatrick on 61-31-5476Wvjvp Occult BloodTRACE-INEGATIVEPomerene Hospital Urine Random Havcsoforw71.82 mg/dL20.00-300.00[facility] 25-Hydroxy Vitamin D Total69.4 ng/mLPomerene HospitalComment on above:<20 ng/mL Vit D efwlnlktp17-<30 ng/mL Vit D qzrjbzichyrk28-337 ng/mL Vit D sufficient>100 ng/mL Potential ToxicityParathyroid Hormone (Intact)87 pg/mL Qhktovlm54-34WcaeilwizPomerene HospitalComment on above:Performed at: [facility] [id number] Director: Josué Crouch PhD, Phone: [phone] Level5.2 mg/dLHigh2.6-4.7FClinton Memorial HospitalUrine protein/creatinine ratioOrdered By: Raeann Kirkpatrick on 95-69-5803Lmyopsl/Creatinine (U) [Ratio]0.32[facility] Office Visiton 26-79-7362Fpezjt-up [id number] Mabel Moser 1960 F Date Provider Department Center 10/11/2024 BENJIE LERMA Hos Family History Problem Relation Age of Onset Stroke Mother Heart failure Father Family Status - Relation Status Age at Mother Father Sister Brother Alive Level of Service:34049 [place] OFFICE/OUTPATIENT ESTABLISHED LOW MDM 20 MINNormal [facility] CenterFollow-Upon [id number] Mabel Moser 1960 F Date Provider Department Center 09/09/2024 MATTHEW MONTEIRO MP ORTHO MPORTHO Family History Family history unknown: Yes Level of Service:09083 [place] OFFICE/OUTPATIENT ESTABLISHED LOW MDM 20 MIN (GC) NormalUnOhioHealth Shelby HospitalLaboratory - Chemistry and Chemistry - challengeon 49-44-3526Wgtpaothb Ql (U)NegativeNEGATIVEPomerene HospitalGlucose (U) [Mass/Vol]NegativeNEGATIVEPomerene Hospital Ketones Ql (U)NegativeNEGATIVEPomerene HospitalpH (U)5.5 [pH] 5.0-9.0[facility] Clinic Foundationpecific gravity (U) [Rel density]1.010 1.005-1.025Pomerene HospitalUrobilinogen Qn (U)0.2 {Ligia'U}/dL0.2-1.0[facility] HospitalMagnesium [Mass/Vol]2.0 mg/dL1.8-2.4FClinton Memorial HospitalUrate [Mass/Vol]7.8 mg/dLHigh 2.6-6.0[facility] HospitalLaboratory - Specimen informationon 79-35-3124Xlilecsull (U)CLEARCLEARFClinton Memorial HospitalColor (U)LT. YELLOWYELLOWPomerene HospitalLaboratory - Urinalysison 85-11-0055Gcolucnku esterase Test strip Ql (U)NegativeNEGATIVEPomerene HospitalNitrite Ql (U)NegativeNEGATIVEPomerene Hospital Protein (U) [Mass/Vol]7.6 mg/dL<=11.9P[facility] HospitalProtein Ql (U)NegativeNEG/TRACEPomerene HospitalMicroalbumin [Mass/volume] in Urineon 65-28-2484Otglbjz DL <= 20 mg/L (U) [Mass/Vol]Microalbumin [Mass/volume] in Urine<=30.0P[facility] HospitalNo Panel Informationon 51-66-9894Gcycy Occult BloodNegativeNEGOhioHealth Doctors HospitalUrine Random Gkvudpysci81.27 mg/dLLow20.00-300.00[facility] Hospital25-Hydroxy Vitamin D Total49.9 ng/mLPomerene HospitalComment on above:<20 ng/mL Vit D exfasontb61-<30 ng/mL Vit D dfpapgwygiva46-783 ng/mL Vit D sufficient>100 ng/mL Potential Toxicity Parathyroid Hormone (Intact)266 pg/yCGevkafxv72-32IccwzrycnPomerene HospitalComment on above:Performed at: [place] [address] [place], [place] [id number] Director: Josué Crouch PhD, Phone: [phone] Phosphorus Level5.3 mg/dLHigh2.6-4.7FClinton Memorial HospitalUrine protein/creatinine ratioon 48-13-5705Bwcndbt/Creatinine (U) [Ratio]Urine protein/creatinine ratioPomerene HospitalAmbulatory Visit Summaryon 82-55-9826Rzmgjjlkin Visit SummaryAmbulatory Visit Summary MABEL MOSER :1960 Visit Date:03/05/2024 [...] mg Tab) butorphanol (butorphanol 10 mg/mL Nasal [place]) cyanocobalamin (cyanocobalamin 1000 mcg/mL Inj) desvenlafaxine (desvenlafaxine [...] Vikki-en-Y (06/26/1999), Cardiac catheterization, Cervical laminectomy, Cervical spinalfusion, Cholecystectomy, Knee replacement, Removal of implantable venous [...] Unchanged butorphanol (butorphanol 10 mg/ mL Nasal [place]) 1 Sprays Nasal Inhalation Every day as [...] 100 mcg-25 mcg inhalation powder) 1 Puffs InhalationEvery day 30 dose unit Unchanged hydrALAZINE (hydrALAZINE [...] Benign essential hypertension Bilate (more content not included)...NormalFirsthealth Moore Regional Hospital - Richmonder [facility] Hospital CenterMagnesium on 14-93-9109Xuxgbrmyf [Mass/Vol]2.0 mg/dLNormal1.6-2.4[facility] CenterComment on above:Performed By: #### CDP, CMPX #### [employer] [address] [place] [address] Youtuber: Michael Chen [facility] with Diffon 18-80-5868Ymv. Basophil0.00 k/uL Normal0.0-0.2MCentinela Freeman Regional Medical Center, Memorial CampusComment on above:Performed By: #### CDP, CMPX #### [facility] [address] [place] [address] Youtuber: MDAbs. BridgetImm.Granulocyte0.09 k/uLNormal0.00-0.30[facility] HospitalComment on above:Performed By: #### CDP, CMPX #### [facility] [address] [place] [address] Youtuber: Laz Gill.Neutrophil (Seg)6.87 k/uLNormal1.8-7.7[facility] HospitalComment on above:Performed By: #### CDP, CMPX #### [address] [address] Youtuber: Michael Chen MDBasophils/100 WBC (Bld)0 %Normal0-2MCentinela Freeman Regional Medical Center, Memorial CampusComment on above:Performed By: #### CDP, CMPX #### [address] [address] Youtuber: Micahel Chen MDEosinophils (Bld) [#/Vol]0.26 10*3/uLNormal 0.0-0.4[facility] HospitalComment on above:Performed By: #### CDP, CMPX #### [address] [address] Youtuber: LIANA Gillosinophils/100 WBC (Bld)3 %Normal1-4[facility] HospitalComment on above:Performed By: #### CDP, CMPX #### [facility] [employer] [address] [place] [address] Youtuber: Rock Gillture granulocytes/100 WBC (Bld)1 %Tbjv0CxyhzTrihealth Bethesda Butler HospitalComment on above:Performed By: #### CDP, CMPX #### [facility] [address] [place] [address] Youtuber: Michael Chen MDLymphocytes (Bld) [#/Vol]0.95 10*3/uLLow1.0-4.8 [facility] HospitalComment on above:Performed By: #### CDP, CMPX #### [address] [address] Youtuber: Michael Chen MDLymphocytes/100 WBC (Bld)11 %Tql57-41NpyycTrihealth Bethesda Butler HospitalComment on above:Performed By: #### CDP, CMPX #### [address] [address] Youtuber: WALTER Gillonocytes (Bld) [#/Vol]0.43 10*3/uLNormal0.1-0.8 [facility] HospitalComment on above:Performed By: #### CDP, CMPX #### [address] [address] Youtuber: WALTER Gillonocytes/100 WBC (Bld)5 %Normal1-7[facility] HospitalComment on above:Performed By: #### CDP, CMPX #### [facility] [employer] [address] [place] [address] Youtuber: Michael Chen MDMorphology Pedro (Bld) [Interp]NormalNormalTrihealth Bethesda Butler HospitalComment on above:Performed By: #### CDP, CMPX #### [facility] [employer] [address] [place] [address] Youtuber: Michael Chen MDNeutrophil (Seg)80 %Gaqb37-06PikgtTrihealth Bethesda Butler HospitalComment on above:Performed By: #### CDP, CMPX #### [facility] [address] [place] [address] Youtuber: Kwesi Gill Fluoresc.288 k/aKBncdaj787-206MnvncTrihealth Bethesda Butler HospitalComment on above:Performed By: #### CDP, CMPX #### [address] [address] Youtuber: CHIP GillLT, Immature Fract.1.5 %Normal1.1-10.3MCentinela Freeman Regional Medical Center, Memorial CampusComment on above:Performed By: #### CDP, CMPX #### [address] [address] Youtuber: Michael Chen MDErythrocyte distribution width (RBC) [Ratio]13.6 %Kcciqj87.8-14.4[facility] HospitalComment on above:Performed By: #### CDP, CMPX #### [address] [address] Youtuber: Michael Chen MDHematocrit (Bld) [Volume fraction]25.9 %Low 36.3-47.1MCentinela Freeman Regional Medical Center, Memorial CampusComment on above:Performed By: #### CDP, CMPX #### [address] [address] Youtuber: Michael Chen MDHemoglobin (Bld) [Mass/Vol]7.8 g/dLLow11.9-15.1 [facility] HospitalComment on above:Performed By: #### CDP, CMPX #### [address] [address] Youtuber: WALTER GillCH (RBC) [Entitic mass]29.8 wbJmbobe56.2-33.5 [facility] HospitalComment on above:Performed By: #### CDP, CMPX #### [address] [address] Youtuber: WALTER GillCHC (RBC) [Mass/Vol]30.1 g/rOPunhjt09.4-34.8 [facility] HospitalComment on above:Performed By: #### CDP, CMPX #### [address] [address] Youtuber: WALTER GillCV (RBC) [Entitic vol]98.9 hMTqfzpo68.6-102.9 [facility] HospitalComment on above:Performed By: #### CDP, CMPX #### [address] [address] Youtuber: BRIANNA Gill Automated0.0 per 100 WBCNormal0.0[facility] HospitalComment on above:Performed By: #### CDP, CMPX #### [address] [address] Youtuber: Segun Gilltelet CountSee Reflexed IPF ResultNormal 138-453[facility] HospitalComment on above:Performed By: #### CDP, CMPX #### [address] [address] Youtuber: KATHY Gill (Bld) [#/Vol]2.62 10*6/uLLow3.95-5.11[facility] HospitalComment on above:Performed By: #### CDP, CMPX #### [address] [address] Youtuber: SONYA Gill (Bld) [#/Vol]8.6 10*3/uLNormal3.5-11.3MCentinela Freeman Regional Medical Center, Memorial CampusComment on above:Performed By: #### CDP, CMPX #### [address] [address] Youtuber: JUAN Gill HEAD NECK W CONTRASTon 52-09-5295CFB HEAD NECK W CONTRASTEXAMINATION: CTA OF THE HEAD AND NECK WITH [...] Signed by: Flavio Pierson MD 01/29/24 Final resultNormalTrihealth Bethesda Butler HospitalComp Metabolic Pr/rfx MGon 23-09-5046Htqkhox [Mass/Vol]3.0 g/dLLow3.5-5.2Mmansfield hospitaly [facility] Comment on above:Performed By: #### CDP, CMPX #### [facility] [employer] [address] [place] [address] Youtuber: Michael Chen MDAlbumin/Glob Ratio1.0Tlqyss8.0-2.5[facility] HospitalComment on above:Performed By: #### CDP, CMPX #### [facility] [employer] [address] [place] [address] Youtuber: Antione Gillkaline Hpsx058 U/KAbgn07-073KjituTrihealth Bethesda Butler HospitalComment on above:Performed By: #### CDP, CMPX #### [facility] [employer] [address] [place] [address] Youtuber: Michael Chen MDALT [Catalytic activity/Vol]U/AIgk10-64IeuxbTrihealth Bethesda Butler HospitalComment on above:Performed By: #### CDP, CMPX #### [facility] [employer] [address] [place] [address] Youtuber: Michael Chen MDAnion gap [Moles/Vol]11 mmol/LNormal9-16[facility] HospitalComment on above:Performed By: #### CDP, CMPX #### [facility] [address] [place] [address] Youtuber: Michael Chen MDAST [Catalytic activity/Vol]27 U/CWuaarw82-07 [facility] HospitalComment on above:Performed By: #### CDP, CMPX #### [facility] [address] [place] [address] Youtuber: Michael Chen MDBilirubin [Mass/Vol]0.2 mg/dLNormal0.00-1.20 [facility] HospitalComment on above:Performed By: #### CDP, CMPX #### [address] [address] Youtuber: RAH Gillalcium [Mass/Vol]8.0 mg/dLLow8.6-10.4[facility] HospitalComment on above:Performed By: #### CDP, CMPX #### [facility] [employer] [address] [place] [address] Youtuber: RAH Gillhloride [Moles/Vol]101 mmol/UUtsabp06-014OkkjaTrihealth Bethesda Butler HospitalComment on above:Performed By: #### CDP, CMPX #### [facility] [employer] [address] [place] [address] Youtuber: Michael Chen MDCO2 [Moles/Vol]19 mmol/HSdu77-97ZjkycTrihealth Bethesda Butler HospitalComment on above:Performed By: #### CDP, CMPX #### [facility] [employer] [address] [place] [address] Youtuber: RAH Gillreatinine [Mass/Vol]1.6 mg/dLHigh0.50-0.90[facility] HospitalComment on above:Performed By: #### CDP, CMPX #### [facility] [employer] [address] [place] [address] Youtuber: Michael Chen MDGFR/1.73 sq M.predicted among non-blacks MDRD (S/P/Bld) [Vol rate/Area]38 mL/min/{1.73_m2}Low>60MerMercy HospitalComment on above:Result Comment: These results are not intended for [...] or following therapy that affects renal tubular secretion.Performed By: #### CDP, CMPX #### [facility] [address] [place] [address] Youtuber: Michael Chen MDGlucose [Mass/Vol]90 mg/sAPnbnoh47-52PmzegCentinela Freeman Regional Medical Center, Memorial CampusComment on above:Performed By: #### CDP, CMPX #### [facility] [address] [place] [address] Youtuber: Michael Chen MDPotassium [Moles/Vol]4.4 mmol/LNormal3.7-5.3 [facility] HospitalComment on above:Performed By: #### CDP, CMPX #### [facility] [address] [place] [address] Youtuber: Michael Chen MDProtein [Mass/Vol]5.4 g/dLLow6.6-8.7[facility] HospitalComment on above:Performed By: #### CDP, CMPX #### [facility] [employer] [address] [place] [address] Youtuber: Michael Chen MDSodium [Moles/Vol]131 mmol/WGfo247-000TgowoTrihealth Bethesda Butler HospitalComment on above:Performed By: #### CDP, CMPX #### [facility] [employer] [address] [place] [address] Youtuber: Michael Chen MDUrea nitrogen [Mass/Vol]46 mg/dLHigh8-23[facility] HospitalComment on above:Performed By: #### CDP, CMPX #### [facility] [employer] [address] [place] [address] Youtuber: Michael Chen MDMagnesiumon 72-94-3778Wisyqfeow [Mass/Vol]2.1 mg/dLNormal1.6-2.4[facility] HospitalComment on above:Performed By: #### MG #### [facility] [address] [place] [address] Youtuber: Ismael Gill Metab w/rfx MGon 82-14-8527Wnknu gap [Moles/Vol]10 mmol/LNormal9-16[facility] Butler HospitalComment on above: Performed By: #### CDP, CMPX #### [address] [address] Youtuber: Michael Chen MDCalcium [Mass/Vol]7.5 mg/dLLow8.6-10.4[facility] Butler HospitalComment on above:Performed By: #### CDP, CMPX #### [facility] [address] [place] [address] Youtuber: Michael Chen MDChloride [Moles/Vol]101 mmol/NFiaiyi87-653PkpvwTrihealth Bethesda Butler HospitalComment on above:Performed By: #### CDP, CMPX #### [facility] [address] [address] Youtuber: Michael Chen MDCO2 [Moles/Vol]22 mmol/PQgezzq69-41GuqubTrihealth Bethesda Butler HospitalComment on above:Performed By: #### CDP, CMPX #### [facility] [address] [place] [address] Youtuber: RAH Gillreatinine [Mass/Vol]1.8 mg/dLHigh0.50-0.90[facility] Butler HospitalComment on above:Performed By: #### CDP, CMPX #### [facility] [address] [place] [address] Youtuber: Michael Madoff, MDGFR/1.73 sq M.predicted among non-blacks MDRD (S/P/Bld) [Vol rate/Area]33 mL/min/{1.73_m2}Low>60[facility] HospitalComment on above:Result Comment: These results are not intended for [...] or following therapy that affects renal tubular secretion.Performed By: #### CDP, CMPX #### [facility] [employer] [address] [place] [address] Youtuber: Michael Chen MDGlucose [Mass/Vol]92 mg/dUEpqtqg10-27NkphjCentinela Freeman Regional Medical Center, Memorial CampusComment on above:Performed By: #### TERESA, CMPX #### [facility] [employer] [address] [place] [address] Youtuber: CHIP Gillotassium [Moles/Vol]4.6 mmol/LNormal3.7-5.3 [facility] HospitalComment on above:Performed By: #### CDP, CMPX #### [facility] [address] [place] [address] Youtuber: SHALINI Gillodium [Moles/Vol]133 mmol/TYvm502-937UuwgfTrihealth Bethesda Butler HospitalComment on above:Performed By: #### CDP, CMPX #### [facility] [address] [place] [address] Youtuber: Michael Chen MDUrea nitrogen [Mass/Vol]46 mg/dLHigh8-23[facility] HospitalComment on above:Performed By: #### CDP, CMPX #### [facility] [employer] [address] [place] [address] Youtuber: RAH Gill with Diffon [id number]. Basophil<0.03 Normal0.00-0.20[facility] Butler HospitalComment on above:Performed By: #### CDP, CMPX #### [facility] [address] [place] [address] Youtuber: Laz Gill.Imm.Granulocyte0.13 k/uLNormal0.00-0.30[facility] HospitalComment on above:Performed By: #### CDP, CMPX #### [facility] [address] [place] [address] Youtuber: Laz Gill.Neutrophil (Seg)4.37 k/uLNormal1.50-8.10 [facility] HospitalComment on above:Performed By: #### CDP, CMPX #### [facility] [employer] [address] [place] [address] Youtuber: Michael Chen MDBasophils/100 WBC (Bld)0 %Normal0-2MCentinela Freeman Regional Medical Center, Memorial CampusComment on above:Performed By: #### CDP, CMPX #### [facility] [employer] [address] [place] [address] Youtuber: Michael Chen MDEosinophils (Bld) [#/Vol]0.25 10*3/uLNormal 0.00-0.44[facility] HospitalComment on above:Performed By: #### CDP, CMPX #### [facility] [address] [place] [address] Youtuber: Michael Chen MDEosinophils/100 WBC (Bld)4 %Normal1-4[facility] HospitalComment on above:Performed By: #### CDP, CMPX #### [facility] [employer] [address] [place] [address] Youtuber: Michael Madoff, MDImmature granulocytes/100 WBC (Bld)2 %Seqz5TnsrfTrihealth Bethesda Butler HospitalComment on above:Performed By: #### CDP, CMPX #### [address] [address] Youtuber: Kimmy Gillmphocytes (Bld) [#/Vol]1.15 10*3/uLNormal 1.10-3.70[facility] HospitalComment on above:Performed By: #### CDP, CMPX #### [address] [address] Youtuber: Kimmy Gillmphocytes/100 WBC (Bld)18 %Frd07-46QmwbtTrihealth Bethesda Butler HospitalComment on above:Performed By: #### CDP, CMPX #### [address] [address] Youtuber: WALTER Gillonocytes (Bld) [#/Vol]0.59 10*3/uLNormal 0.10-1.20[facility] HospitalComment on above:Performed By: #### CDP, CMPX #### [address] [address] Youtuber: WALTER Gillonocytes/100 WBC (Bld)9 %Normal3-12[facility] HospitalComment on above:Performed By: #### CDP, CMPX #### [address] [address] Youtuber: Michael Chen MDNeutrophil (Seg)67 %Ybwq15-11RlqyaTrihealth Bethesda Butler HospitalComment on above:Performed By: #### CDP, CMPX #### [address] [address] Youtuber: Michael Chen MDErythrocyte distribution width (RBC) [Ratio]13.6 %Gungdw32.8-14.4[facility] HospitalComment on above:Performed By: #### CDP, CMPX #### [address] [address] Youtuber: Michael Chen MDHematocrit (Bld) [Volume fraction]24.0 %Low 36.3-47.1MCentinela Freeman Regional Medical Center, Memorial CampusComment on above:Performed By: #### CDP, CMPX #### [place] [address] Youtuber: Michael Chen MDHemoglobin (Bld) [Mass/Vol]7.1 g/dLLow11.9-15.1 [facility] HospitalComment on above:Performed By: #### CDP, CMPX #### [place] [address] Youtuber: WALTER GillCH (RBC) [Entitic mass]29.6 peMrbwnw75.2-33.5 [facility] HospitalComment on above:Performed By: #### TERESA, CMPX #### [place] [address] Youtuber: WALTER GillCHC (RBC) [Mass/Vol]29.6 g/iWNkrfer87.4-34.8 [facility] HospitalComment on above:Performed By: #### CDP, CMPX #### [place] [address] Youtuber: WALTER GillCV (RBC) [Entitic vol]100.0 lSQyeqes43.6-102.9 [facility] HospitalComment on above:Performed By: #### CDP, CMPX #### [address] [address] Youtuber: Michael Chen MDNRBC Automated0.0 per 100 WBCNormal0.0[facility] HospitalComment on above:Performed By: #### CDP, CMPX #### [address] [address] Youtuber: Kwesi Gill mean volume (Bld) [Entitic vol]9.2 fL Normal8.1-13.5[facility] HospitalComment on above:Performed By: #### CDP, CMPX #### [address] [address] Youtuber: Segun Gilltelets (Bld) [#/Vol]222 10*3/xYPwpfqp369-951 [facility] HospitalComment on above:Performed By: #### CDP, CMPX #### [address] [address] Youtuber: Michael Chen MDRBC (Bld) [#/Vol]2.40 10*6/uLLow3.95-5.11[facility] HospitalComment on above:Performed By: #### TERESA, CMPX #### [address] [address] Youtuber: Michael Chen MDWBC (Bld) [#/Vol]6.5 10*3/uLNormal3.5-11.3MCentinela Freeman Regional Medical Center, Memorial CampusComment on above:Performed By: #### CDP, CMPX #### [address] [address] Youtuber: Michael Chen MDMagnesiumon [id number] [Mass/Vol]1.6 mg/dLNormal1.6-2.4[facility] HospitalComment on above:Performed By: #### CDP, CMPX #### [address] [address] Youtuber: Vonnie Gillsic Metab w/rfx MGon 36-11-7035Utkrg gap [Moles/Vol]11 mmol/LNormal9-16[facility] HospitalComment on above: Performed By: #### CDP, CMPX #### [facility] [employer] [address] [place] [address] Youtuber: RAH Gillalcium [Mass/Vol]7.4 mg/dLLow8.6-10.4[facility] HospitalComment on above:Performed By: #### CDP, CMPX #### [facility] [employer] [address] [place] [address] Youtuber: RAH Gillhloride [Moles/Vol]102 mmol/ZOjfqqz87-071PgjcnTrihealth Bethesda Butler HospitalComment on above:Performed By: #### CDP, CMPX #### [facility] [employer] [address] [place] [address] Youtuber: Michael Chen MDCO2 [Moles/Vol]21 mmol/SSpttml82-14QjcopTrihealth Bethesda Butler HospitalComment on above:Performed By: #### TERESA, CMPX #### [facility] [employer] [address] [place] [address] Youtuber: RAH Gillreatinine [Mass/Vol]1.6 mg/dLHigh0.50-0.90[facility] HospitalComment on above:Performed By: #### CDP, CMPX #### [facility] [address] [place] [address] Youtuber: Michael Chen MDGFR/1.73 sq M.predicted among non-blacks MDRD (S/P/Bld) [Vol rate/Area]36 mL/min/{1.73_m2}Low>60MerMercy HospitalComment on above:Result Comment: These results are not intended for [...] or following therapy that affects renal tubular secretion.Performed By: #### TERESA, CMPX #### [place] [address] Youtuber: Michael Chen MDGlucose [Mass/Vol]169 mg/fRTvvf26-76NviuyCentinela Freeman Regional Medical Center, Memorial CampusComment on above:Performed By: #### CDP, CMPX #### [place] [address] Youtuber: Michael Chen MDPotassium [Moles/Vol]4.4 mmol/LNormal3.7-5.3 [facility] HospitalComment on above:Performed By: #### TERESA, CMPX #### [place] [address] Youtuber: SHALINI Gillodium [Moles/Vol]134 mmol/GYpr249-120LanyqTrihealth Bethesda Butler HospitalComment on above:Performed By: #### TERESA, CMPX #### [place] [address] Youtuber: Michael Chen MDUrea nitrogen [Mass/Vol]42 mg/dLMon Health Medical Center8-23[facility] HospitalComment on above:Performed By: #### TERESA, CMPX #### [place] [address] Youtuber: ROBERT Gill with Diffon [id number]. Basophil<0.03 Normal0.00-0.20[facility] HospitalComment on above:Performed By: #### TERESA, CMPX #### [place] [address] Youtuber: Laz Gill.Imm.Granulocyte0.06 k/uLNormal0.00-0.30[facility] HospitalComment on above:Performed By: #### CDP, CMPX #### [place] [address] Youtuber: Laz Gill.Neutrophil (Seg)5.93 k/uLNormal1.50-8.10 [facility] HospitalComment on above:Performed By: #### CDP, CMPX #### [place] [address] Youtuber: Michael Chen MDBasophils/100 WBC (Bld)0 %Normal0-2MCentinela Freeman Regional Medical Center, Memorial CampusComment on above:Performed By: #### CDP, CMPX #### [place] [address] Youtuber: Michael Chen MDEosinophils (Bld) [#/Vol]0.17 10*3/uLNormal 0.00-0.44[facility] HospitalComment on above:Performed By: #### CDP, CMPX #### [place] [address] Youtuber: Michael Chen MDEosinophils/100 WBC (Bld)2 %Normal1-4[facility] HospitalComment on above:Performed By: #### CDP, CMPX #### [place] [address] Youtuber: Michael Chen MDErythrocyte distribution width (RBC) [Ratio]13.8 %Mweuul97.8-14.4[facility] HospitalComment on above:Performed By: #### CDP, CMPX #### [place] [address] Youtuber: Michael Chen MDHematocrit (Bld) [Volume fraction]26.3 %Low 36.3-47.1MCentinela Freeman Regional Medical Center, Memorial CampusComment on above:Performed By: #### CDP, CMPX #### [place] [address] Youtuber: Michael Chen MDHemoglobin (Bld) [Mass/Vol]7.8 g/dLLow11.9-15.1 [facility] HospitalComment on above:Performed By: #### CDP, CMPX #### [place] [address] Youtuber: Michael Chen MDImmature granulocytes/100 WBC (Bld)1 %Nflj1MypqwTrihealth Bethesda Butler HospitalComment on above:Performed By: #### TERESA, CMPX #### [place] [address] Youtuber: Michael Chen MDLymphocytes (Bld) [#/Vol]0.79 10*3/uLLow 1.10-3.70[facility] HospitalComment on above:Performed By: #### TERESA, CMPX #### [place] [address] Youtuber: Kimmy Gillmphocytes/100 WBC (Bld)11 %Fbs70-60VhmobTrihealth Bethesda Butler HospitalComment on above:Performed By: #### TERESA, CMPX #### [place] [address] Youtuber: WALTER GillCH (RBC) [Entitic mass]29.8 ftKsrwfc54.2-33.5 [facility] HospitalComment on above:Performed By: #### CDP, CMPX #### [address] [address] Youtuber: WALTER GillCHC (RBC) [Mass/Vol]29.7 g/eNUsdwun46.4-34.8 [facility] HospitalComment on above:Performed By: #### CDP, CMPX #### [address] [address] Youtuber: WALTER GillCV (RBC) [Entitic vol]100.4 uKTjrswf30.6-102.9 [facility] HospitalComment on above:Performed By: #### CDP, CMPX #### [place] [address] Youtuber: WALTER Gillonocytes (Bld) [#/Vol]0.38 10*3/uLNormal 0.10-1.20[facility] HospitalComment on above:Performed By: #### CDP, CMPX #### [place] [address] Youtuber: WALTER Gillonocytes/100 WBC (Bld)5 %Normal3-12[facility] HospitalComment on above:Performed By: #### CDP, CMPX #### [place] [address] Youtuber: Antonino Gillophil (Seg)81 %Vmjs86-26EsaqkTrihealth Bethesda Butler HospitalComment on above:Performed By: #### CDP, CMPX #### [place] [address] Youtuber: BRIANNA Gill Automated0.0 per 100 WBCNormal0.0[facility] HospitalComment on above:Performed By: #### CDP, CMPX #### [place] [address] Youtuber: CHIP Gilllatelet mean volume (Bld) [Entitic vol]9.6 fL Normal8.1-13.5[facility] HospitalComment on above:Performed By: #### CDP, CMPX #### [facility] [employer] [address] [place] [address] Youtuber: Thea Gill ([facility]) [#/Vol]239 10*3/hNHrcgam307-739 [facility] HospitalComment on above:Performed By: #### CDP, CMPX #### [facility] [employer] [address] [place] [address] Youtuber: CRIS GillBC (d) [#/Vol]2.62 10*6/uLLow3.95-5.11[facility] HospitalComment on above:Performed By: #### CDP, CMPX #### [facility] [employer] [address] [place] [address] Youtuber: ARIELLE Gill ([facility]) [#/Vol]7.3 10*3/uLNormal3.5-11.3MCentinela Freeman Regional Medical Center, Memorial CampusComment on above:Performed By: #### CDP, CMPX #### [address] [address] Youtuber: BERENICE Gill CERVICAL SPINE WO CONTRASTon [id number] CERVICAL SPINE WO CONTRASTEXAMINATION: CT OF THE CERVICAL SPINE WITHOUT CONTRAST [...] Signed by: Alex Hickman MD 01/27/24 Final resultNormalTrihealth Bethesda Butler HospitalBasic Metab w/rfx MGon [id number] gap [Moles/Vol]8 mmol/LLow9-16[facility] Comment on above:Performed By: #### BMPX, CDP #### [employer] [address] [place] [address] Youtuber: RAH Gillalcium [Mass/Vol]7.8 mg/dLLow8.6-10.4[facility] HospitalComment on above:Performed By: #### BMPX, CDP #### [employer] [address] [place] [address] Youtuber: RAH Gillhloride [Moles/Vol]104 mmol/GRsnqwf74-552XkcgqTrihealth Bethesda Butler HospitalComment on above:Performed By: #### BMPX, CDP #### [facility] [address] [place] [address] Youtuber: Michael Chen MDCO2 [Moles/Vol]23 mmol/UKctdes95-25GvqtoTrihealth Bethesda Butler HospitalComment on above:Performed By: #### BMPX, CDP #### [facility] [address] [place] [address] Youtuber: RAH Gillreatinine [Mass/Vol]1.6 mg/dLHigh0.50-0.90[facility] HospitalComment on above:Performed By: #### BMPX, CDP #### [facility] [employer] [address] [place] [address] Youtuber: Michael Chen MDGFR/1.73 sq M.predicted among non-blacks MDRD (S/P/Bld) [Vol rate/Area]38 mL/min/{1.73_m2}Low>60[facility] HospitalComment on above:Result Comment: These results are not intended for [...] or following therapy that affects renal tubular secretion.Performed By: #### BMPX, CDP #### [facility] [address] [place] [address] Youtuber: Michael Chen MDGlucose [Mass/Vol]109 mg/kIJdyl83-01WviejCentinela Freeman Regional Medical Center, Memorial CampusComment on above:Performed By: #### BMPX, CDP #### [facility] [address] [place] [address] Youtuber: Michael Chen MDPotassium [Moles/Vol]5.3 mmol/LNormal3.7-5.3 [facility] HospitalComment on above:Performed By: #### BMPX, CDP #### [facility] [address] [place] [address] Youtuber: Michael Chen MDSodium [Moles/Vol]135 mmol/WFsx881-659IwhmlTrihealth Bethesda Butler HospitalComment on above:Performed By: #### BMPX, CDP #### [facility] [address] [place] [address] Youtuber: Michael Chen MDUrea nitrogen [Mass/Vol]40 mg/dLHigh8-23[facility] HospitalComment on above:Performed By: #### BMPX, CDP #### [address] [address] Youtuber: Michael Chen MDAnion gap [Moles/Vol]11 mmol/LNormal9-16[facility] HospitalComment on above:Performed By: #### BMPX, CDP #### [facility] [address] [place] [address] Youtuber: Michael Chen MDCalcium [Mass/Vol]7.6 mg/dLLow8.6-10.4[facility] HospitalComment on above:Performed By: #### BMPX, CDP #### [facility] [address] [place] [address] Youtuber: Michael Chen MDChloride [Moles/Vol]102 mmol/RNdlgdx57-576LjghtTrihealth Bethesda Butler HospitalComment on above:Performed By: #### BMPX, CDP #### [facility] [address] [place] [address] Youtuber: Michael Chen MDCO2 [Moles/Vol]20 mmol/BEbtvuy17-21XpfziTrihealth Bethesda Butler HospitalComment on above:Performed By: #### BMPX, CDP #### [facility] [employer] [address] [place] [address] Youtuber: RAH Gillreatinine [Mass/Vol]1.7 mg/dLHigh0.50-0.90[facility] HospitalComment on above:Performed By: #### BMPX, CDP #### [address] [address] Youtuber: Michael Chen MDGFR/1.73 sq M.predicted among non-blacks MDRD (S/P/Bld) [Vol rate/Area]35 mL/min/{1.73_m2}Low>60[facility] HospitalComment on above:Result Comment: These results are not intended for [...] or following therapy that affects renal tubular secretion.Performed By: #### BMPX, CDP #### [facility] [employer] [address] [place] [address] Youtuber: Michael Chen MDGlucose [Mass/Vol]106 mg/jUDxro13-14AherkCentinela Freeman Regional Medical Center, Memorial CampusComment on above:Performed By: #### BMPX, CDP #### [facility] [employer] [address] [place] [address] Youtuber: Michael Chen MDPotassium [Moles/Vol]5.0 mmol/LNormal3.7-5.3 [facility] HospitalComment on above:Performed By: #### BMPX, CDP #### [facility] [employer] [address] [place] [address] Youtuber: Michael Chen MDSodium [Moles/Vol]133 mmol/LXdv033-012IucpeTrihealth Bethesda Butler HospitalComment on above:Performed By: #### BMPX, CDP #### [facility] [address] [place] [address] Youtuber: Michael Chen MDUrea nitrogen [Mass/Vol]46 mg/dLHigh8-23[facility] HospitalComment on above:Performed By: #### BMPX, CDP #### [facility] [address] [place] [address] Youtuber: Michael Chen [facility] with Diffon [id number]. Basophil<0.03 Normal0.00-0.20[facility] HospitalComment on above:Performed By: #### VERONICAX, CDP #### [facility] [employer] [address] [place] [address] Youtuber: Laz Gill.Imm.Granulocyte0.13 k/uLNormal0.00-0.30[facility] HospitalComment on above:Performed By: #### BMPX, CDP #### [facility] [employer] [address] [place] [address] Youtuber: Laz Gill.Neutrophil (Seg)8.21 k/uLHigh1.50-8.10[facility] HospitalComment on above:Performed By: #### BMPX, CDP #### [place] [address] Youtuber: Michael Chen MDBasophils/100 WBC (Bld)0 %Normal0-2MercFairchild Medical CenterComment on above:Performed By: #### BMPX, CDP #### [place] [address] Youtuber: Michael Chen MDEosinophils (Bld) [#/Vol]0.19 10*3/uLNormal 0.00-0.44[facility] HospitalComment on above:Performed By: #### BMPX, CDP #### [facility] [address] [place] [address] Youtuber: Michael Chen MDEosinophils/100 WBC (Bld)2 %Normal1-4[facility] HospitalComment on above:Performed By: #### BMPX, CDP #### [address] [address] Youtuber: Michael Chen MDErythrocyte distribution width (RBC) [Ratio]13.9 %Emcsol44.8-14.4[facility] HospitalComment on above:Performed By: #### BMPX, CDP #### [address] [address] Youtuber: Michael Chen MDHematocrit (Bld) [Volume fraction]28.3 %Low 36.3-47.1MCentinela Freeman Regional Medical Center, Memorial CampusComment on above:Performed By: #### BMPX, CDP #### [address] [address] Youtuber: Michael Chen MDHemoglobin (Bld) [Mass/Vol]8.6 g/dLLow11.9-15.1 [facility] HospitalComment on above:Performed By: #### BMPX, CDP #### [place] [address] Youtuber: Michael Chen MDImmature granulocytes/100 WBC (Bld)1 %Fxjj3KqcheTrihealth Bethesda Butler HospitalComment on above:Performed By: #### BMPX, CDP #### [address] [address] Youtuber: Michael Chen MDLymphocytes (Bld) [#/Vol]1.09 10*3/uLLow 1.10-3.70[facility] HospitalComment on above:Performed By: #### BMPX, CDP #### [address] [address] Youtuber: Michael Chen MDLymphocytes/100 WBC (Bld)10 %Dhx15-72DsqbsTrihealth Bethesda Butler HospitalComment on above:Performed By: #### BMPX, CDP #### [address] [address] Youtuber: WALTER GillCH (RBC) [Entitic mass]29.5 skMxvjrv52.2-33.5 [facility] HospitalComment on above:Performed By: #### BMPX, CDP #### [address] [address] Youtuber: WALTER GillCHC (RBC) [Mass/Vol]30.4 g/rSSeuita42.4-34.8 [facility] HospitalComment on above:Performed By: #### BMPX, CDP #### [place] [address] Youtuber: WALTER GillCV (RBC) [Entitic vol]96.9 oCBdvhfk31.6-102.9 [facility] HospitalComment on above:Performed By: #### BMPX, CDP #### [place] [address] Youtuber: Michael Chen MDMonocytes (Bld) [#/Vol]0.85 10*3/uLNormal 0.10-1.20[facility] HospitalComment on above:Performed By: #### BMPX, CDP #### [address] [address] Youtuber: WALTER Gillonocytes/100 WBC (Bld)8 %Normal3-12[facility] HospitalComment on above:Performed By: #### BMPX, CDP #### [facility] [address] [place] [address] Youtuber: Michael Gill (Seg)79 %Zivz38-12DbkmlTrihealth Bethesda Butler HospitalComment on above:Performed By: #### BMPX, CDP #### [facility] [address] [place] [address] Youtuber: SANGEETA GillBC Automated0.0 per 100 WBCNormal0.0[facility] HospitalComment on above:Performed By: #### BMPX, CDP #### [facility] [employer] [address] [place] [address] Youtuber: Kwesi Gill mean volume (Bld) [Entitic vol]9.7 fL Normal8.1-13.5[facility] Butler HospitalComment on above:Performed By: #### BMPX, CDP #### [facility] [address] [place] [address] Youtuber: Segun Gilltevenu (Bld) [#/Vol]270 10*3/qHOjovse724-385 [facility] HospitalComment on above:Performed By: #### BMPX, CDP #### [facility] [employer] [address] [place] [address] Youtuber: CRIS GillBC (Bld) [#/Vol]2.92 10*6/uLLow3.95-5.11[facility] HospitalComment on above:Performed By: #### BMPX, CDP #### [facility] [employer] [address] [place] [address] Youtuber: SONYA Gill (Bld) [#/Vol]10.5 10*3/uLNormal3.5-11.3MCentinela Freeman Regional Medical Center, Memorial CampusComment on above:Performed By: #### BMPX, CDP #### [address] [place] [address] Youtuber: MDAbs. Bridget Basophil0.03 k/uLNormal0.00-0.20[facility] HospitalComment on above:Performed By: #### BMPX, CDP #### [address] [address] Youtuber: MDAbs. BridgetImm.Granulocyte0.08 k/uLNormal0.00-0.30[facility] HospitalComment on above:Performed By: #### BMPX, CDP #### [address] [address] Youtuber: Laz Gill.Neutrophil (Seg)12.75 k/uLHigh1.50-8.10[facility] HospitalComment on above:Performed By: #### BMPX, CDP #### [address] [address] Youtuber: Michael Chen MDBasophils/100 WBC (Bld)0 %Normal0-2MCentinela Freeman Regional Medical Center, Memorial CampusComment on above:Performed By: #### BMPX, CDP #### [address] [address] Youtuber: Michael Chen MDEosinophils (Bld) [#/Vol]0.16 10*3/uLNormal 0.00-0.44[facility] Butler HospitalComment on above:Performed By: #### BMPX, CDP #### [address] [address] [address] Youtuber: LIANA Gillosinophils/100 WBC (Bld)1 %Normal1-4[facility] Butler HospitalComment on above:Performed By: #### BMPX, CDP #### [address] [address] Youtuber: Michael Chen MDErythrocyte distribution width (RBC) [Ratio]13.7 %Ssimgb58.8-14.4[facility] Butler HospitalComment on above:Performed By: #### BMPX, CDP #### [address] [address] Youtuber: Michael Chen MDHematocrit (Bld) [Volume fraction]28.8 %Low 36.3-47.1MCentinela Freeman Regional Medical Center, Memorial CampusComment on above:Performed By: #### BMPX, CDP #### [address] [address] Youtuber: Michael Chen MDHemoglobin (Bld) [Mass/Vol]8.8 g/dLLow11.9-15.1 [facility] HospitalComment on above:Performed By: #### BMPX, CDP #### [address] [address] Youtuber: Michael Chen MDImmature granulocytes/100 WBC (Bld)1 %Sfyq8JkhreTrihealth Bethesda Butler HospitalComment on above:Performed By: #### BMPX, CDP #### [address] [address] Youtuber: Michael Chen MDLymphocytes (Bld) [#/Vol]1.15 10*3/uLNormal 1.10-3.70[facility] HospitalComment on above:Performed By: #### BMPX, CDP #### [address] [address] Youtuber: Kimmy Gillmphocytes/100 WBC (Bld)8 %Wkl29-96TcnwgTrihealth Bethesda Butler HospitalComment on above:Performed By: #### BMPX, CDP #### [address] [address] Youtuber: WALTER GillCH (RBC) [Entitic mass]29.6 hrUddptd52.2-33.5 [facility] HospitalComment on above:Performed By: #### BMPX, CDP #### [facility] [address] [place] [address] Youtuber: WALTER GillCHC (RBC) [Mass/Vol]30.6 g/aPUnrgzh88.4-34.8 [facility] HospitalComment on above:Performed By: #### BMPX, CDP #### [facility] [address] [place] [address] Youtuber: WALTER GillCV (RBC) [Entitic vol]97.0 xMIgrnyd28.6-102.9 [facility] HospitalComment on above:Performed By: #### BMPX, CDP #### [facility] [employer] [address] [place] [address] Youtuber: WALTER Gillonocytes (Bld) [#/Vol]0.77 10*3/uLNormal 0.10-1.20[facility] HospitalComment on above:Performed By: #### BMPX, CDP #### [facility] [employer] [address] [place] [address] Youtuber: WALTER Gillonocytes/100 WBC (Bld)5 %Normal3-12[facility] HospitalComment on above:Performed By: #### BMPX, CDP #### [facility] [address] [place] [address] Youtuber: Antonino Gillophil (Seg)85 %Qlup83-73QmjltTrihealth Bethesda Butler HospitalComment on above:Performed By: #### BMPX, CDP #### [facility] [employer] [address] [place] [address] Youtuber: BRIANNA Gill Automated0.0 per 100 WBCNormal0.0[facility] Butler HospitalComment on above:Performed By: #### BMPX, CDP #### [facility] [employer] [address] [place] [address] Youtuber: Kwesi Gill mean volume (Bld) [Entitic vol]9.1 fL Normal8.1-13.5[facility] HospitalComment on above:Performed By: #### BMPX, CDP #### [address] [address] Youtuber: Thea Gill (Bld) [#/Vol]269 10*3/kYGfyryh593-197 [facility] HospitalComment on above:Performed By: #### BMPX, CDP #### [address] [address] Youtuber: KATHY Gill (Bld) [#/Vol]2.97 10*6/uLLow3.95-5.11[facility] HospitalComment on above:Performed By: #### BMPX, CDP #### [address] [address] Youtuber: SONYA Gill (Bld) [#/Vol]14.9 10*3/uLHigh3.5-11.3MCentinela Freeman Regional Medical Center, Memorial CampusComment on above:Performed By: #### BMPX, CDP #### [address] [address] Youtuber: Nikki Gill,Urineon [id number],UrineSpecimen Description .INDWELLING CATH URINE Special Requests FIRST INSERTION Culture NO GROWTH Report Status FINAL 01/26/2024NormalTrihealth Bethesda Butler HospitalComment on above:Performed By: #### URC #### [facility] [employer] [address] [place] [address] Youtuber: FELIPA Gill CERVICAL SPINE (2-3 VIEWS)on [id number] CERVICAL SPINE (2-3 VIEWS)ADDENDUM: Additional findings/impression point: Precervical soft tissue swelling, [...] Marcelle Alonso DO 01/26/24 Edited Result - FINALNormalMerMercy HospitalBasic Metab w/rfx MG on 98-41-0486Hnnlc gap [Moles/Vol]9 mmol/LNormal9-16[facility] HospitalComment on above:Performed By: #### TERESA, BMPX #### [employer] [facility] [address] [place], [place] [address] Youtuber: RAH Gillalcium [Mass/Vol]7.9 mg/dLLow8.6-10.4[facility] HospitalComment on above:Performed By: #### TERESA, BMPX #### [employer] [address] [place] [address] Youtuber: RAH Gillhloride [Moles/Vol]105 mmol/GRakasn46-494XxjjfTrihealth Bethesda Butler HospitalComment on above:Performed By: #### CDP, BMPX #### [facility] [address] [place] [address] Youtuber: RAH GillO2 [Moles/Vol]22 mmol/UUqiuxl90-38UcteeTrihealth Bethesda Butler HospitalComment on above:Performed By: #### TERESA, BMPX #### [facility] [address] [place] [address] Youtuber: RAH Gillreatinine [Mass/Vol]1.7 mg/dLHigh0.50-0.90[facility] HospitalComment on above:Performed By: #### TERESA, BMPX #### [facility] [address] [place] [address] Youtuber: Michael Chen MDGFR/1.73 sq M.predicted among non-blacks MDRD (S/P/Bld) [Vol rate/Area]33 mL/min/{1.73_m2}Low>60[facility] HospitalComment on above:Result Comment: These results are not intended for [...] or following therapy that affects renal tubular secretion.Performed By: #### TERESA, BMPX #### [facility] [address] [place] [address] Youtuber: Michael Chen MDGlucose [Mass/Vol]104 mg/hYFqhk54-07HwqhlCentinela Freeman Regional Medical Center, Memorial CampusComment on above:Performed By: #### TERESA, BMPX #### [facility] [address] [place] [address] Youtuber: Michael Chen MDPotassium [Moles/Vol]5.1 mmol/LNormal3.7-5.3 [facility] HospitalComment on above:Performed By: #### CDP, BMPX #### [address] [address] Youtuber: SHALINI Gillodium [Moles/Vol]136 mmol/JXqaxpb679-524HkdosTrihealth Bethesda Butler HospitalComment on above:Performed By: #### TERESA, BMPX #### [place] [address] Youtuber: Michael Chen MDUrea nitrogen [Mass/Vol]51 mg/dLHigh8-23[facility] HospitalComment on above:Performed By: #### TERESA, BMPX #### [facility] [employer] [address] [place] [address] Youtuber: Michael Chen [facility] with Diffon [id number]. Basophil<0.03 Normal0.00-0.20[facility] Butler HospitalComment on above:Performed By: #### TERESA, BMPX #### [address] [address] Youtuber: MDAbs. BridgetImm.Granulocyte0.03 k/uLNormal0.00-0.30[facility] HospitalComment on above:Performed By: #### TERESA, BMPX #### [facility] [employer] [address] [place] [address] Youtuber: Laz Gill.Neutrophil (Seg)3.64 k/uLNormal1.50-8.10 [facility] HospitalComment on above:Performed By: #### TERESA, BMPX #### [facility] [employer] [address] [place] [address] Youtuber: Michael Chen MDBasophils/100 WBC (Bld)0 %Normal0-2MercFairchild Medical CenterComment on above:Performed By: #### TERESA, BMPX #### [address] [address] Youtuber: Michael Chen MDEosinophils (Bld) [#/Vol]0.23 10*3/uLNormal 0.00-0.44[facility] HospitalComment on above:Performed By: #### CDP, BMPX #### [address] [address] Youtuber: LIANA Gillosinophils/100 WBC (Bld)4 %Normal1-4[facility] HospitalComment on above:Performed By: #### TERESA, BMPX #### [address] [address] Youtuber: Michael Chen MDErythrocyte distribution width (RBC) [Ratio]13.7 %Yrqvye80.8-14.4[facility] HospitalComment on above:Performed By: #### TERESA, BMPX #### [place] [address] Youtuber: Michael Chen MDHematocrit (Bld) [Volume fraction]26.8 %Low 36.3-47.1MCentinela Freeman Regional Medical Center, Memorial CampusComment on above:Performed By: #### TERESA, BMPX #### [place] [address] Youtuber: Michael Chen MDHemoglobin (Bld) [Mass/Vol]8.0 g/dLLow11.9-15.1 [facility] HospitalComment on above:Performed By: #### CDP, BMPX #### [address] [address] Youtuber: Michael Chen MDImmature granulocytes/100 WBC (Bld)1 %Goyu6JvgksTrihealth Bethesda Butler HospitalComment on above:Performed By: #### TERESA, BMPX #### [address] [address] Youtuber: Michael Chen MDLymphocytes (Bld) [#/Vol]1.38 10*3/uLNormal 1.10-3.70[facility] HospitalComment on above:Performed By: #### CDP, BMPX #### [place] [address] Youtuber: Kimmy Gillmphocytes/100 WBC (Bld)24 %Rvvelg21-92MxccrTrihealth Bethesda Butler HospitalComment on above:Performed By: #### TERESA, BMPX #### [place] [address] Youtuber: WALTER GillCH (RBC) [Entitic mass]29.3 cpRqkych22.2-33.5 [facility] HospitalComment on above:Performed By: #### TERESA, BMPX #### [place] [address] Youtuber: WALTER GillCHC (RBC) [Mass/Vol]29.9 g/wGPtlsar92.4-34.8 [facility] HospitalComment on above:Performed By: #### CDP, BMPX #### [place] [address] Youtuber: WALTER GillCV (RBC) [Entitic vol]98.2 lMHxrnog87.6-102.9 [facility] HospitalComment on above:Performed By: #### TERESA, BMPX #### [place] [address] Youtuber: WALTER Gillonocytes (Bld) [#/Vol]0.58 10*3/uLNormal 0.10-1.20[facility] HospitalComment on above:Performed By: #### TERESA, BMPX #### [facility] [address] [place] [address] Youtuber: WALTER Gillonocytes/100 WBC (Bld)10 %Normal3-12[facility] HospitalComment on above:Performed By: #### CDP, BMPX #### [facility] [address] [place] [address] Youtuber: Natali Gillutrophil (Seg)61 %Lfifre38-50FxlinTrihealth Bethesda Butler HospitalComment on above:Performed By: #### CDP, BMPX #### [address] [address] Youtuber: Michael Chen MDNRBC Automated0.0 per 100 WBCNormal0.0[facility] HospitalComment on above:Performed By: #### CDP, BMPX #### [address] [address] Youtuber: Segun Gilltekarthik mean volume (Bld) [Entitic vol]9.1 fL Normal8.1-13.5[facility] HospitalComment on above:Performed By: #### CDP, BMPX #### [address] [address] Youtuber: CHIP Gilllatelets (Bld) [#/Vol]227 10*3/vXHjbjrm335-236 [facility] HospitalComment on above:Performed By: #### CDP, BMPX #### [facility] [address] [place] [address] Youtuber: Michael Chen MDRBC (Bld) [#/Vol]2.73 10*6/uLLow3.95-5.11[facility] HospitalComment on above:Performed By: #### CDP, BMPX #### [facility] [employer] [address] [place] [address] Youtuber: Michael Chen MDWBC (Bld) [#/Vol]5.9 10*3/uLNormal3.5-11.3MCentinela Freeman Regional Medical Center, Memorial CampusComment on above:Performed By: #### CDP, BMPX #### [address] [address] Youtuber: Michael Chen MDFLUORO FOR SURGICAL PROCEDURESon 01-25-2024 FLUORO FOR SURGICAL PROCEDURESRadiology exam is complete. No Radiologist dictation. Please follow up with ordering provider. Final resultNormalTrihealth Bethesda Butler HospitalHgb/Hcton [id number] (Bld) [Volume fraction]30.8 %Low36.3-47.1Mmansfield hospitaly [facility] Comment on above:Performed By: #### BMPX, CDP #### [address] [address] Youtuber: Michael Chen MDHemoglobin (Bld) [Mass/Vol]9.5 g/dLLow11.9-15.1 [facility] HospitalComment on above:Performed By: #### BMPX, CDP #### [facility] [employer] [address] [place] [address] Youtuber: Michael Chen MDBasic Metab w/rfx MGon 56-15-2929Mhive gap [Moles/Vol]10 mmol/LNormal9-16[facility] HospitalComment on above: Performed By: #### BMPX, CDP #### [facility] [employer] [address] [place] [address] Youtuber: RAH Gillalcium [Mass/Vol]8.2 mg/dLLow8.6-10.4[facility] HospitalComment on above:Performed By: #### BMPX, CDP #### [facility] [employer] [address] [place] [address] Youtuber: RAH Gillhloride [Moles/Vol]104 mmol/GGsxwpl74-899JhvyqTrihealth Bethesda Butler HospitalComment on above:Performed By: #### BMPX, CDP #### [facility] [address] [place] [address] Youtuber: Michael Chen MDCO2 [Moles/Vol]22 mmol/FUzhflb46-83OqekrTrihealth Bethesda Butler HospitalComment on above:Performed By: #### BMPX, CDP #### [facility] [address] [place] [address] Youtuber: RAH Gillreatinine [Mass/Vol]1.7 mg/dLHigh0.50-0.90[facility] HospitalComment on above:Performed By: #### BMPX, CDP #### [facility] [employer] [address] [place] [address] Youtuber: Michael Chen MDGFR/1.73 sq M.predicted among non-blacks MDRD (S/P/Bld) [Vol rate/Area]34 mL/min/{1.73_m2}Low>60[facility] HospitalComment on above:Result Comment: These results are not intended for [...] or following therapy that affects renal tubular secretion.Performed By: #### BMPX, CDP #### [facility] [address] [place] [address] Youtuber: Michael Chen MDGlucose [Mass/Vol]100 mg/vZCrut10-06ZqfyuCentinela Freeman Regional Medical Center, Memorial CampusComment on above:Performed By: #### BMPX, CDP #### [facility] [employer] [address] [place] [address] Youtuber: CHIP Gillotassium [Moles/Vol]4.9 mmol/LNormal3.7-5.3 [facility] HospitalComment on above:Result Comment: SPECIMEN SLIGHTLY HEMOLYZED, RESULTS MAY BE ADVERSELY AFFECTED.Performed By: #### BMPX, CDP #### [address] [address] Youtuber: SHALINI Gillodium [Moles/Vol]136 mmol/CYbihgl642-382MhhtkTrihealth Bethesda Butler HospitalComment on above:Performed By: #### BMPX, CDP #### [address] [address] Youtuber: Didier Gill nitrogen [Mass/Vol]51 mg/dLHigh8-23[facility] HospitalComment on above:Performed By: #### BMPX, CDP #### [address] [address] Youtuber: Michael Chen [facility] with Diffon [id number]. Basophil0.03 k/uL Normal0.00-0.20[facility] HospitalComment on above:Performed By: #### BMPX, CDP #### [address] [address] Youtuber: Laz Gill.Imm.Granulocyte0.11 k/uLNormal0.00-0.30[facility] HospitalComment on above:Performed By: #### BMPX, CDP #### [address] [address] Youtuber: Laz Gill.Neutrophil (Seg)3.73 k/uLNormal1.50-8.10 [facility] HospitalComment on above:Performed By: #### BMPX, CDP #### [address] [address] Youtuber: Michael Madoff, MDBasophils/100 WBC (Bld)1 %Normal0-2MCentinela Freeman Regional Medical Center, Memorial CampusComment on above:Performed By: #### BMPX, CDP #### [address] [address] Youtuber: Michael Chen MDEosinophils (Bld) [#/Vol]0.24 10*3/uLNormal 0.00-0.44[facility] HospitalComment on above:Performed By: #### BMPX, CDP #### [place] [address] Youtuber: LIANA Gillosinophils/100 WBC (Bld)4 %Normal1-4[facility] HospitalComment on above:Performed By: #### BMPX, CDP #### [place] [address] Youtuber: Michael Chen MDErythrocyte distribution width (RBC) [Ratio]13.8 %Rsisvh81.8-14.4[facility] HospitalComment on above:Performed By: #### BMPX, CDP #### [place] [address] Youtuber: Michael Chen MDHematocrit (Bld) [Volume fraction]29.4 %Low 36.3-47.1MCentinela Freeman Regional Medical Center, Memorial CampusComment on above:Performed By: #### BMPX, CDP #### [place] [address] Youtuber: Michael Chen MDHemoglobin (Bld) [Mass/Vol]9.2 g/dLLow11.9-15.1 [facility] HospitalComment on above:Performed By: #### BMPX, CDP #### [address] [address] Youtuber: Michael Chen MDImmature granulocytes/100 WBC (Bld)2 %Xpsv2DpfedTrihealth Bethesda Butler HospitalComment on above:Performed By: #### BMPX, CDP #### [facility] [employer] [address] [place] [address] Youtuber: Michael Chen MDLymphocytes (Bld) [#/Vol]1.63 10*3/uLNormal 1.10-3.70[facility] HospitalComment on above:Performed By: #### BMPX, CDP #### [facility] [employer] [address] [place] [address] Youtuber: Kimmy Gillmphocytes/100 WBC (Bld)25 %Wimapp82-39QiigrTrihealth Bethesda Butler HospitalComment on above:Performed By: #### BMPX, CDP #### [address] [address] Youtuber: WALTER GillCH (RBC) [Entitic mass]30.8 oePkomsj87.2-33.5 [facility] HospitalComment on above:Performed By: #### BMPX, CDP #### [address] [address] Youtuber: WALTER GillCHC (RBC) [Mass/Vol]31.3 g/hEThmryw80.4-34.8 [facility] HospitalComment on above:Performed By: #### BMPX, CDP #### [address] [address] Youtuber: WALTER GillCV (RBC) [Entitic vol]98.3 yCThtida68.6-102.9 [facility] HospitalComment on above:Performed By: #### BMPX, CDP #### [facility] [employer] [address] [place] [address] Youtuber: Michael Madoff, MDMonocytes (Bld) [#/Vol]0.74 10*3/uLNormal 0.10-1.20[facility] HospitalComment on above:Performed By: #### BMPX, CDP #### [address] [address] Youtuber: Michael Chen MDMonocytes/100 WBC (Bld)11 %Normal3-12[facility] HospitalComment on above:Performed By: #### BMPX, CDP #### [address] [address] Youtuber: Natali Gillutrophil (Seg)57 %Grxisl44-27AjfpbTrihealth Bethesda Butler HospitalComment on above:Performed By: #### BMPX, CDP #### [address] [address] Youtuber: Michael Chen MDNRBC Automated0.0 per 100 WBCNormal0.0[facility] HospitalComment on above:Performed By: #### BMPX, CDP #### [address] [address] Youtuber: Segun Gilltekarthik mean volume (Bld) [Entitic vol]9.9 fL Normal8.1-13.5[facility] HospitalComment on above:Performed By: #### BMPX, CDP #### [address] [address] Youtuber: Michael Chen MDPlatelets (Bld) [#/Vol]234 10*3/rUZzflgj451-965 [facility] HospitalComment on above:Performed By: #### BMPX, CDP #### [address] [address] Youtuber: Michael Chen MDRBC (Bld) [#/Vol]2.99 10*6/uLLow3.95-5.11[facility] HospitalComment on above:Performed By: #### BMPX, CDP #### [facility] [employer] [address] [place] [address] Youtuber: SONYA Gill ([facility]) [#/Vol]6.5 10*3/uLNormal3.5-11.3Mmansfield hospitaly [facility] CenterComment on above:Performed By: #### BMPX, CDP #### [facility] [employer] [address] [place] [address] Youtuber: Michael Chen MDANA Screen w/reflexon [id number] Screen NegativeNormalNEGTrihealth Bethesda Butler HospitalComment on above:Performed By: #### BMPX, CDP #### [place] [address] Youtuber: Barney Gilli-dsDNA<0.5Normal<10.0[facility] HospitalComment on above:Result Comment: Reference Range: <10.0 Negative 10.0-15.0 Equivocal >15.0 PositivePerformed By: #### BMPX, CDP #### [facility] [employer] [address] [place] [address] Youtuber: ARMINDA Gill Screen0.1 U/mLNormal<0.7[facility] HospitalComment on above:Result Comment: Reference Range: <0.7 Negative 0.7-1.0 Equivocal >1.0 Positive [place] Screen includes U1RNP,RNP70,Sm,Ro(SS-A),La(SS-B),CENP,Scl-70,Elli-1Performed By: #### BMPX, CDP #### [facility] [employer] [address] [place] [address] Youtuber: Michael Chen MDANA ScreenNegativeNormalNEGTrihealth Bethesda Butler HospitalComment on above:Performed By: #### CDP, CMPX #### [facility] [address] [place], [place] [id number] Youtuber: Donald Gill-dsDNA0.7 IU/mLNormal<10.0[facility] HospitalComment on above:Result Comment: Reference Range: <10.0 Negative 10.0-15.0 Equivocal >15.0 PositivePerformed By: #### TERESA, CMPX #### [place] [address] Youtuber: ARMINDA Gill Screen0.2 U/mLNormal<0.7[facility] HospitalComment on above:Result Comment: Reference Range: <0.7 Negative 0.7-1.0 Equivocal >1.0 Positive [place] Screen includes U1RNP,RNP70,Sm,Ro(SS-A),La(SS-B),CENP,Scl-70,Elli-1Performed By: #### TERESA CMPX #### [place] [address] Youtuber: Donald Gill CCPon 35-89-9675Pqzt CCP0.6 U/mLNormal 0.0-7.0[facility] HospitalComment on above:Result Comment: Reference Range: <7.0 Negative 7.0-10.0 Equivocal >10.0 PositivePerformed By: #### BMPX, CDP #### [place] [address] Youtuber: Michael Chen MDBasic Metab w/rfx MGon 87-59-7112Lncjx gap [Moles/Vol]8 mmol/LLow9-16[facility] HospitalComment on above: Performed By: #### CECILIA, CDP #### [place] [id number] Youtuber: Michael Chen MDCalcium [Mass/Vol]8.2 mg/dLLow8.6-10.4[facility] HospitalComment on above:Performed By: #### BMPX, CDP #### [facility] [address] [place] [address] Youtuber: RAH Gillhloride [Moles/Vol]106 mmol/TOktqvw38-493XzfyaTrihealth Bethesda Butler HospitalComment on above:Performed By: #### BMPX, CDP #### [facility] [address] [place] [address] Youtuber: Michael Chen MDCO2 [Moles/Vol]21 mmol/CFmkqml78-49BmbglTrihealth Bethesda Butler HospitalComment on above:Performed By: #### BMPX, CDP #### [facility] [address] [place] [address] Youtuber: RAH Gillreatinine [Mass/Vol]1.7 mg/dLHigh0.50-0.90[facility] HospitalComment on above:Performed By: #### BMPX, CDP #### [facility] [address] [place] [address] Youtuber: Michael Chen MDGFR/1.73 sq M.predicted among non-blacks MDRD (S/P/Bld) [Vol rate/Area]33 mL/min/{1.73_m2}Low>60[facility] Butler HospitalComment on above:Result Comment: These results are not intended for [...] or following therapy that affects renal tubular secretion.Performed By: #### BMPX, CDP #### [facility] [employer] [address] [place] [address] Youtuber: Michael Chen MDGlucose [Mass/Vol]88 mg/pWUsntwd00-87GswbaCentinela Freeman Regional Medical Center, Memorial CampusComment on above:Performed By: #### BMPX, CDP #### [address] [address] Youtuber: Michael Chen MDPotassium [Moles/Vol]4.8 mmol/LNormal3.7-5.3 [facility] HospitalComment on above:Performed By: #### BMPX, CDP #### [place] [address] Youtuber: Michael Chen MDSodium [Moles/Vol]135 mmol/SElx205-968NeuwyTrihealth Bethesda Butler HospitalComment on above:Performed By: #### BMPX, CDP #### [address] [address] Youtuber: Michael Chen MDUrea nitrogen [Mass/Vol]56 mg/dLHigh8-23[facility] HospitalComment on above:Performed By: #### BMPX, CDP #### [place] [address] Youtuber: ROBERT Gill with Diffon [id number]. Basophil<0.03 Normal0.00-0.20[facility] Butler HospitalComment on above:Performed By: #### VERONICAX, CDP #### [facility] [employer] [address] [place] [address] Youtuber: Laz Gill.Imm.Granulocyte0.03 k/uLNormal0.00-0.30[facility] HospitalComment on above:Performed By: #### BMPX, CDP #### [address] [address] Youtuber: Laz Gill.Neutrophil (Seg)5.50 k/uLNormal1.50-8.10 [facility] HospitalComment on above:Performed By: #### BMPX, CDP #### [address] [address] Youtuber: Michael Chen MDBasophils/100 WBC (Bld)0 %Normal0-2MCentinela Freeman Regional Medical Center, Memorial CampusComment on above:Performed By: #### BMPX, CDP #### [address] [address] Youtuber: Michael Chen MDEosinophils (Bld) [#/Vol]0.15 10*3/uLNormal 0.00-0.44[facility] Butler HospitalComment on above:Performed By: #### BMPX, CDP #### [address] [address] Youtuber: Michael Chen MDEosinophils/100 WBC (Bld)2 %Normal1-4[facility] Butler HospitalComment on above:Performed By: #### BMPX, CDP #### [place] [address] Youtuber: Michael Chen MDErythrocyte distribution width (RBC) [Ratio]13.7 %Kratrh46.8-14.4[facility] Butler HospitalComment on above:Performed By: #### BMPX, CDP #### [place] [address] Youtuber: Michael Chen MDHematocrit (Bld) [Volume fraction]28.9 %Low 36.3-47.1MCentinela Freeman Regional [facility], Memorial CampusComment on above:Performed By: #### BMPX, CDP #### [place] [address] Youtuber: Michael Chen MDHemoglobin (Bld) [Mass/Vol]8.6 g/dLLow11.9-15.1 [facility] Butler HospitalComment on above:Performed By: #### BMPX, CDP #### [facility] [address] [place] [address] Youtuber: Rock Gillture granulocytes/100 WBC (Bld)0 %Normal0 [facility] Butler HospitalComment on above:Performed By: #### BMPX, CDP #### [address] [address] Youtuber: Michael Chen MDLymphocytes (Bld) [#/Vol]1.07 10*3/uLLow 1.10-3.70[facility] HospitalComment on above:Performed By: #### BMPX, CDP #### [address] [address] Youtuber: Kimmy Gillmphocytes/100 WBC (Bld)14 %Dpm70-39RwludTrihealth Bethesda Butler HospitalComment on above:Performed By: #### BMPX, CDP #### [address] [address] Youtuber: WALTER GillCH (RBC) [Entitic mass]30.2 tvNdfcsr92.2-33.5 [facility] HospitalComment on above:Performed By: #### BMPX, CDP #### [address] [address] Youtuber: WALTER GillCHC (RBC) [Mass/Vol]29.8 g/uBYzkdij16.4-34.8 [facility] HospitalComment on above:Performed By: #### BMPX, CDP #### [address] [address] Youtuber: WALTER GillCV (RBC) [Entitic vol]101.4 eYPkscfa71.6-102.9 [facility] HospitalComment on above:Performed By: #### BMPX, CDP #### [address] [place] [address] Youtuber: WALTER Gillonocytes (Bld) [#/Vol]0.72 10*3/uLNormal 0.10-1.20[facility] HospitalComment on above:Performed By: #### BMPX, CDP #### [address] [address] Youtuber: WALTER Gillonocytes/100 WBC (Bld)10 %Normal3-12[facility] HospitalComment on above:Performed By: #### BMPX, CDP #### [address] [address] Youtuber: Natali Gillutrophil (Seg)74 %Spld85-09LrsvrTrihealth Bethesda Butler HospitalComment on above:Performed By: #### BMPX, CDP #### [address] [address] Youtuber: Michael Chen MDNRBC Automated0.0 per 100 WBCNormal0.0[facility] HospitalComment on above:Performed By: #### BMPX, CDP #### [address] [address] Youtuber: Segun Gilltelet mean volume (Bld) [Entitic vol]9.9 fL Normal8.1-13.5[facility] HospitalComment on above:Performed By: #### BMPX, CDP #### [address] [address] Youtuber: Michael Chen MDPlatelets (Bld) [#/Vol]292 10*3/lEEqgzkj465-266 [facility] HospitalComment on above:Performed By: #### BMPX, CDP #### [address] [address] Youtuber: CRIS GillBC (Bld) [#/Vol]2.85 10*6/uLLow3.95-5.11[facility] HospitalComment on above:Performed By: #### BMPX, CDP #### [address] [address] Youtuber: Michael Chen MDWBC (Bld) [#/Vol]7.5 10*3/uLNormal3.5-11.3MCentinela Freeman Regional [facility] Center, Memorial CampusComment on above:Performed By: #### BMPX, CDP #### [address] [address] Youtuber: Abelardo Gill 79-30-6609tPNW Coag (d) [Time]29.1 s Gvpkta08.0-36.5[facility] HospitalComment on above:Result Comment: IV Heparin Therapy Range: 66.0-92.0 secPerformed By: #### TERESA, CMPX #### [place] [address] Youtuber: Ismael Gill Metab w/rfx MGon 20-87-6861Mzsoj gap [Moles/Vol]10 mmol/LNormal9-16[facility] HospitalComment on above: Performed By: #### TERESA, CMPX #### [address] [address] Youtuber: Michael Chen MDCalcium [Mass/Vol]8.3 mg/dLLow8.6-10.4[facility] HospitalComment on above:Performed By: #### TERESA, CMPX #### [address] [address] Youtuber: Michael Chen MDChloride [Moles/Vol]107 mmol/QFdevsd32-741PjyocTrihealth Bethesda Butler HospitalComment on above:Performed By: #### CDP, CMPX #### [facility] [address] [place] [address] Youtuber: RAH GillO2 [Moles/Vol]21 mmol/NGxikbp73-80GjsqvTrihealth Bethesda Butler HospitalComment on above:Performed By: #### CDP, CMPX #### [facility] [address] [place] [address] Youtuber: RAH Gillreatinine [Mass/Vol]1.8 mg/dLHigh0.50-0.90[facility] HospitalComment on above:Performed By: #### TERESA, CMPX #### [facility] [employer] [address] [place] [address] Youtuber: Michael Chen MDGFR/1.73 sq M.predicted among non-blacks MDRD (S/P/Bld) [Vol rate/Area]32 mL/min/{1.73_m2}Low>60[facility] HospitalComment on above:Result Comment: These results are not intended for [...] or following therapy that affects renal tubular secretion.Performed By: #### TERESA, CMPX #### [facility] [address] [place] [address] Youtuber: Michael Chen MDGlucose [Mass/Vol]86 mg/oDMpskxf11-04KijpsCentinela Freeman Regional Medical Center, Memorial CampusComment on above:Performed By: #### TERESA, CMPX #### [facility] [address] [place] [address] Youtuber: Michael Chen MDPotassium [Moles/Vol]4.1 mmol/LNormal3.7-5.3 [facility] HospitalComment on above:Performed By: #### CDP, CMPX #### [facility] [address] [place] [address] Youtuber: SHALINI Gillodium [Moles/Vol]138 mmol/SYjctht061-642ZqbawTrihealth Bethesda Butler HospitalComment on above:Performed By: #### CDP, CMPX #### [facility] [address] [place] [address] Youtuber: Michael Chen MDUrea nitrogen [Mass/Vol]66 mg/dLHigh8-23[facility] HospitalComment on above:Performed By: #### CDP, CMPX #### [facility] [address] [address] Youtuber: RAH Gill-Reactive Proteinon 98-03-7259JEO [Mass/Vol] 31.7 mg/LHigh0.0-5.0MerMercy HospitalComment on above:Performed By: #### BMPX, CDP #### [address] [address] Youtuber: Michael Chen [facility]3on 87-00-7021Y9574 mg/lEEklksy68-168ZuwijTrihealth Bethesda Butler HospitalComment on above:Performed By: #### BMPX, CDP #### [address] [address] Youtuber: Michael Chen [facility]4on 48-99-9939B711 mg/kULwgykf14-52FinmcTrihealth Bethesda Butler HospitalComment on above:Performed By: #### BMPX, CDP #### [address] [address] Youtuber: RAH Gill with Diffon 28-64-2332Krd. Basophil0.00 k/uL Normal0.00-0.20[facility] HospitalComment on above:Performed By: #### CDP, CMPX #### [address] [address] Youtuber: MDAbs. BridgetImm.Granulocyte0.00 k/uLNormal0.00-0.30[facility] HospitalComment on above:Performed By: #### CDP, CMPX #### [address] [address] Youtuber: MDAbs. BridgetNeutrophil (Seg)6.12 k/uLNormal1.50-8.10 [facility] HospitalComment on above:Performed By: #### CDP, CMPX #### [address] [address] Youtuber: Michael Chen MDBasophils/100 WBC (Bld)0 %Normal0-2MCentinela Freeman Regional Medical Center, Memorial CampusComment on above:Performed By: #### CDP, CMPX #### [address] [address] Youtuber: Michael Chen MDEosinophils (Bld) [#/Vol]0.07 10*3/uLNormal 0.00-0.44[facility] HospitalComment on above:Performed By: #### CDP, CMPX #### [address] [address] Youtuber: Michael Chen MDEosinophils/100 WBC (Bld)1 %Normal1-4[facility] HospitalComment on above:Performed By: #### CDP, CMPX #### [address] [address] Youtuber: Marty Gillmature granulocytes/100 WBC (Bld)0 %Normal0 [facility] HospitalComment on above:Performed By: #### CDP, CMPX #### [facility] [employer] [address] [place] [address] Youtuber: Michael Chen MDLymphocytes (Bld) [#/Vol]0.58 10*3/uLLow 1.10-3.70[facility] HospitalComment on above:Performed By: #### CDP, CMPX #### [facility] [address] [place] [address] Youtuber: Michael Chen MDLymphocytes/100 WBC (Bld)8 %Ktd07-09CbjclTrihealth Bethesda Butler HospitalComment on above:Performed By: #### CDP, CMPX #### [facility] [address] [place] [address] Youtuber: WALTER Gillonocytes (Bld) [#/Vol]0.43 10*3/uLNormal 0.10-1.20[facility] HospitalComment on above:Performed By: #### CDP, CMPX #### [facility] [address] [place] [address] Youtuber: WALTER Gillonocytes/100 WBC (Bld)6 %Normal3-12[facility] HospitalComment on above:Performed By: #### CDP, CMPX #### [facility] [address] [place] [address] Youtuber: WALTER Gillorphology Pedro (Bld) [Interp]NormalNormalTrihealth Bethesda Butler HospitalComment on above:Performed By: #### CDP, CMPX #### [facility] [address] [place] [address] Youtuber: Michael Chen MDNeutrophil (Seg)85 %Omek42-56XgchmTrihealth Bethesda Butler HospitalComment on above:Performed By: #### CDP, CMPX #### [facility] [address] [place] [address] Youtuber: Michael Chen MDErythrocyte distribution width (RBC) [Ratio]13.6 %Mmbifb39.8-14.4[facility] HospitalComment on above:Performed By: #### CDP, CMPX #### [address] [address] Youtuber: Michael Chen MDHematocrit (Bld) [Volume fraction]30.3 %Low 36.3-47.1MCentinela Freeman Regional Medical Center, Memorial CampusComment on above:Performed By: #### CDP, CMPX #### [place] [address] Youtuber: Michael Chen MDHemoglobin (Bld) [Mass/Vol]9.3 g/dLLow11.9-15.1 [facility] HospitalComment on above:Performed By: #### CDP, CMPX #### [place] [address] Youtuber: WALTER GillCH (RBC) [Entitic mass]30.8 tzOkbbps79.2-33.5 [facility] HospitalComment on above:Performed By: #### CDP, CMPX #### [place] [address] Youtuber: WALTER GillCHC (RBC) [Mass/Vol]30.7 g/mZUtfvxn63.4-34.8 [facility] HospitalComment on above:Performed By: #### CDP, CMPX #### [place] [address] Youtuber: WALTER GillCV (RBC) [Entitic vol]100.3 yZUoapbx09.6-102.9 [facility] HospitalComment on above:Performed By: #### CDP, CMPX #### [address] [address] Youtuber: BRIANNA Gill Automated0.0 per 100 WBCNormal0.0[facility] HospitalComment on above:Performed By: #### TERESA, CMPX #### [address] [address] Youtuber: Segun Gilltekarthik mean volume (Bld) [Entitic vol]9.6 fL Normal8.1-13.5[facility] HospitalComment on above:Performed By: #### CDP, CMPX #### [address] [address] Youtuber: Segun Gilltelets (Bld) [#/Vol]329 10*3/aKRrjnex616-190 [facility] HospitalComment on above:Performed By: #### TERESA, CMPX #### [address] [address] Youtuber: CRIS GillBC (Bld) [#/Vol]3.02 10*6/uLLow3.95-5.11[facility] HospitalComment on above:Performed By: #### TERESA, CMPX #### [address] [address] Youtuber: SONYA Gill (Bld) [#/Vol]7.2 10*3/uLNormal3.5-11.3MCentinela Freeman Regional Medical Center, Memorial CampusComment on above:Performed By: #### TERESA, CMPX #### [address] [address] Youtuber: Michael Chen MDCT CERVICAL SPINE WO CONTRASTon 79-25-9343QE CERVICAL SPINE WO CONTRASTEXAMINATION: CT OF THE CERVICAL SPINE WITHOUT CONTRAST [...] Signed by: Anuj Paniagua MD 01/22/24 Final resultNoalTrihealth Bethesda Butler HospitalCT CHEST ABDOMEN PELVIS W CONTRASTon [id number] CHEST ABDOMEN PELVIS W CONTRASTEXAMINATION: CT OF THE CHEST, ABDOMEN, AND PELVIS [...] bladder is markedly distended. Status post hysterectomy. Peritoneum/Retroperitoneum: No evidence of ascites or free air. [...] Signed by: Anuj Paniagua MD 01/22/24 Final resultNormalTrihealth Bethesda Butler HospitalCT HEAD WO CONTRASTon [id number] HEAD WO CONTRASTEXAMINATION: CT OF THE HEAD WITHOUT CONTRAST; CTA [...] Signed by: Anuj Paniagua MD 01/22/24 Final resultNoGood Samaritan HospitalCT LUMBAR SPINE BONY RECONSTRUCTIONon 78-13-4322YY LUMBAR SPINE BONY RECONSTRUCTIONEXAMINATION: CT OF THE LUMBAR SPINE WITHOUT CONTRAST; [...] Signed by: Anuj Paniagua MD 01/22/24 Final resultNormAshtabula County Medical CenterCT THORACIC SPINE BONY RECONSTRUCTIONon [id number] THORACIC SPINE BONY RECONSTRUCTIONEXAMINATION: CT OF THE LUMBAR SPINE WITHOUT CONTRAST; [...] Signed by: Anuj Paniagua MD 01/22/24 Final resultNormalMercy Los Angeles Metropolitan Medical CenterCTA HEAD NECK W CONTRASTon 11-36-1506ITL HEAD NECK W CONTRASTEXAMINATION: CT OF THE HEAD WITHOUT CONTRAST; CTA [...] Signed by: Anuj Paniagua MD 01/22/24 Final resultNormalTrihealth Bethesda Butler HospitalCreatine Kinaseon 56-49-7989FM [Catalytic activity/Vol]38 U/BGuuhfd01-110BpgzcTrihealth Bethesda Butler Hospital Comment on above:Performed By: #### BMPX, CDP #### [employer] [facility] [place] [id number] Youtuber: JOSESITO Gill BRAIN WO CONTRASTon 16-96-8787RLL BRAIN WO CONTRASTEXAMINATION: MRI OF THE BRAIN WITHOUT CONTRAST 01/22/2024 [...] Signed by: Shabbir Martin MD 01/22/24 Final resultNormalMercy Los Angeles Metropolitan Medical CenterMRI CERVICAL SPINE WO CONTRAST on 81-75-7396NWH CERVICAL SPINE WO CONTRASTEXAMINATION: MRI OF THE CERVICAL SPINE WITHOUT CONTRAST [...] Signed by: Kirby Adames MD 01/22/24 Final resultNormalMerMercy HospitalPTon 81-94-9645DNE Coag (PPP) [Relative time]1.1 {INR}NormalTrihealth Bethesda Butler HospitalComment on above: Result Comment: Therapeutic Range: Moderate Anticoagulant Intensity: INR = 2.0-3.0 High Anticoagulant Intensity: INR = 2.5-3.5Performed By: #### CDP, CMPX #### [facility] [employer] [address] [place] [address] Youtuber: WILMAR Gill Coag (PPP) [Time]14.2 uIlpwif99.7-14.9[facility] HospitalComment on above:Performed By: #### CDP, CMPX #### [employer] [address] [place] [address] Youtuber: CRIS GillA Screenon 97-98-9555FS Screen<16Bexowh6-95 [facility] HospitalComment on above:Performed By: #### BMPX, CDP #### [facility] [address] [place], [place] [phone] Youtuber: SHALINI Gilledimentation Rateon 94-03-9913Tvfrwxzpfpyjx Rate11 mm/HrNormal0-30[facility] HospitalComment on above:Performed By: #### BMPX, CDP #### [employer] [address] [place] [address] Youtuber: Michael Chen MDType + Screenon 84-46-0790Yqgv + ScreenSample Expiration 01/25/2024,2359 Arm Band Number [id number] ABO/Rh(D) A POSITIVE Antibody Screen NEGATIVENormalTrihealth Bethesda Butler HospitalComment on above: Performed By: #### BMPX, CDP #### [facility] [address] [place] [address] Youtuber: Michael Chen MDUric Acidon 83-00-5662Pdzae [Mass/Vol]9.6 mg/dL High2.4-5.7[facility] HospitalComment on above:Performed By: #### CECILIA, CDP #### [facility] [address] [place] [address] Youtuber: Michael Chen MDVitamin D 25 OHon 36-86-1606Txrzsct D 25 OH30.3 ng/uRMyaqja27.0-100.0[facility] HospitalComment on above:Result Comment: Reference Range: Vitamin D status Range Deficiency <20 ng/mL Mild Deficiency 20-30 ng/mL Sufficiency 30-100 ng/mL Toxicity >100 ng/mLPerformed By: #### VERONICAX, CDP #### [facility] [employer] [address] [place] [address] Youtuber: SHARONA GillR CHEST (SINGLE VIEW FRONTAL)on 40-14-6839LB CHEST (SINGLE VIEW FRONTAL)EXAMINATION: ONE XRAY VIEW OF THE CHEST 01/22/2024 10:06 am COMPARISON: Chest radiograph 09/30/2023 HISTORY: ORDERING SYSTEM PROVIDED HISTORY: 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-op inventory 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/shipping 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 PROVIDED HISTORY: Pre-op imaging FINDINGS: Lines/tubes: Right [...] Signed by: Migel Price MD 01/22/24 Final resultNormalTrihealth Bethesda Butler HospitalBasic Metab w/rfx MGon 46-91-2653Wisjt gap [Moles/Vol]8 mmol/LLow9-16[facility] Comment on above:Performed By: #### CDP, BMPX #### [facility] [employer] [address] [place] [address] Youtuber: RAH Gillalcium [Mass/Vol]8.1 mg/dLLow8.6-10.4[facility] HospitalComment on above:Performed By: #### CDP, BMPX #### [facility] [address] [place] [address] Youtuber: Michael Chen MDChloride [Moles/Vol]101 mmol/WHggcwb08-998JtfmiTrihealth Bethesda Butler HospitalComment on above:Performed By: #### CDP, BMPX #### [facility] [employer] [address] [place] [address] Youtuber: Michael Chen MDCO2 [Moles/Vol]23 mmol/JFzmucm96-81BmqnpTrihealth Bethesda Butler HospitalComment on above:Performed By: #### CDP, BMPX #### [facility] [address] [place] [address] Youtuber: Michael Chen MDCreatinine [Mass/Vol]1.5 mg/dLHigh0.50-0.90[facility] HospitalComment on above:Performed By: #### CDP, BMPX #### [employer] [address] [place] [address] Youtuber: Michael Chen MDGFR/1.73 sq M.predicted among non-blacks MDRD (S/P/Bld) [Vol rate/Area]39 mL/min/{1.73_m2}Low>60[facility] HospitalComment on above:Result Comment: These results are not intended for [...] or following therapy that affects renal tubular secretion.Performed By: #### TERESA, BMPX #### [facility] [employer] [address] [place] [address] Youtuber: Michael Chen MDGlucose [Mass/Vol]100 mg/dGFcyh59-84TqetwCentinela Freeman Regional Medical Center, Memorial CampusComment on above:Performed By: #### TERESA BMPX #### [facility] [employer] [address] [place] [address] Youtuber: CHIP Gillotassium [Moles/Vol]4.4 mmol/LNormal3.7-5.3 [facility] HospitalComment on above:Performed By: #### CDP, BMPX #### [facility] [employer] [address] [place] [address] Youtuber: Michael Chen MDSodium [Moles/Vol]132 mmol/QSev860-317ClnsbTrihealth Bethesda Butler HospitalComment on above:Performed By: #### CDP, BMPX #### [facility] [employer] [address] [place] [address] Youtuber: Michael Chen MDUrea nitrogen [Mass/Vol]56 mg/dLMon Health Medical Center8-23[facility] HospitalComment on above:Performed By: #### TERESA, BMPX #### [facility] [employer] [address] [place] [address] Youtuber: ROBERT Gill with Diffon 13-16-0220Kdm. Basophil0.03 k/uL Normal0.00-0.20[facility] HospitalComment on above:Performed By: #### CDP, BMPX #### [address] [address] Youtuber: MDAbs. BridgetImm.Granulocyte0.05 k/uLNormal0.00-0.30[facility] HospitalComment on above:Performed By: #### TERESA, BMPX #### [address] [address] Youtuber: Laz Gill.Neutrophil (Seg)6.55 k/uLNormal1.50-8.10 [facility] HospitalComment on above:Performed By: #### TERESA, BMPX #### [address] [address] Youtuber: Michael Chen MDBasophils/100 WBC (Bld)0 %Normal0-2MCentinela Freeman Regional Medical Center, Memorial CampusComment on above:Performed By: #### TERESA, BMPX #### [place] [address] Youtuber: Michael Chen MDEosinophils (Bld) [#/Vol]0.10 10*3/uLNormal 0.00-0.44[facility] HospitalComment on above:Performed By: #### CDP, BMPX #### [facility] [employer] [address] [place] [address] Youtuber: LIANA Gillosinophils/100 WBC (Bld)1 %Normal1-4[facility] HospitalComment on above:Performed By: #### TERESA, BMPX #### [address] [address] Youtuber: Michael Chen MDErythrocyte distribution width (RBC) [Ratio]13.6 %Lrcfqp78.8-14.4[facility] HospitalComment on above:Performed By: #### CDP, BMPX #### [address] [address] Youtuber: Michael Chen MDHematocrit (Bld) [Volume fraction]27.9 %Low 36.3-47.1MCentinela Freeman Regional Medical Center, Memorial CampusComment on above:Performed By: #### TERESA, BMPX #### [place] [address] Youtuber: Michael Chen MDHemoglobin (Bld) [Mass/Vol]8.4 g/dLLow11.9-15.1 [facility] HospitalComment on above:Performed By: #### TERESA, BMPX #### [address] [address] Youtuber: Michael Chen MDImmature granulocytes/100 WBC (Bld)1 %Thik0EckmwTrihealth Bethesda Butler HospitalComment on above:Performed By: #### TERESA, BMPX #### [address] [address] Youtuber: Michael Chen MDLymphocytes (Bld) [#/Vol]0.94 10*3/uLLow 1.10-3.70[facility] HospitalComment on above:Performed By: #### TERESA, BMPX #### [facility] [employer] [address] [place] [address] Youtuber: Kimmy Gillmphocytes/100 WBC (Bld)11 %Hhy59-30MmlziTrihealth Bethesda Butler HospitalComment on above:Performed By: #### TERESA, BMPX #### [facility] [employer] [address] [place] [address] Youtuber: WALTER GillCH (RBC) [Entitic mass]30.5 rsSusqaz11.2-33.5 [facility] HospitalComment on above:Performed By: #### CDP, BMPX #### [facility] [employer] [address] [place] [address] Youtuber: WALTER GillCHC (RBC) [Mass/Vol]30.1 g/oNQgcxqi06.4-34.8 [facility] HospitalComment on above:Performed By: #### CDP, BMPX #### [address] [address] Youtuber: WALTER GillCV (RBC) [Entitic vol]101.5 wSRrwrrv28.6-102.9 [facility] HospitalComment on above:Performed By: #### CDP, BMPX #### [address] [address] Youtuber: WALTER Gillonocytes (Bld) [#/Vol]0.54 10*3/uLNormal 0.10-1.20[facility] HospitalComment on above:Performed By: #### CDP, BMPX #### [facility] [employer] [address] [place] [address] Youtuber: WALTER Gillonocytes/100 WBC (Bld)7 %Normal3-12[facility] HospitalComment on above:Performed By: #### CDP, BMPX #### [address] [address] Youtuber: Antonino Gillophil (Seg)80 %Zuyb54-96HmbuqTrihealth Bethesda Butler HospitalComment on above:Performed By: #### CDP, BMPX #### [facility] [employer] [address] [place] [address] Youtuber: BRIANNA Gill Automated0.0 per 100 WBCNormal0.0[facility] HospitalComment on above:Performed By: #### TERESA, BMPX #### [facility] [employer] [address] [place] [address] Youtuber: Kwesi Gill mean volume (Bld) [Entitic vol]8.9 fL Normal8.1-13.5[facility] HospitalComment on above:Performed By: #### TERESA, BMPX #### [address] [address] Youtuber: Segun Gilltevenu (Bld) [#/Vol]281 10*3/fSXvequs451-832 [facility] HospitalComment on above:Performed By: #### TERESA, BMPX #### [address] [address] Youtuber: CRIS GillBC (Bld) [#/Vol]2.75 10*6/uLLow3.95-5.11[facility] HospitalComment on above:Performed By: #### TERESA, BMPX #### [facility] [employer] [address] [place] [address] Youtuber: SONYA Gill (Bld) [#/Vol]8.2 10*3/uLNormal3.5-11.3MCentinela Freeman Regional Medical Center, Memorial CampusComment on above:Performed By: #### TERESA, BMPX #### [facility] [employer] [address] [place] [address] Youtuber: Vonnie Gillsic Metab w/rfx MGon 80-45-2837Hhoyu gap [Moles/Vol]12 mmol/LNormal9-16[facility] HospitalComment on above: Performed By: #### TERESA, BMPX #### [facility] [employer] [address] [place] [address] Youtuber: RAH Gillalcium [Mass/Vol]8.2 mg/dLLow8.6-10.4[facility] HospitalComment on above:Performed By: #### CDP, BMPX #### [facility] [employer] [address] [place] [address] Youtuber: Michael Chen MDChloride [Moles/Vol]103 mmol/QUywewk03-866SeytqMercy HospitalComment on above:Performed By: #### CDP, BMPX #### [facility] [address] [place] [address] Youtuber: Michael Chen MDCO2 [Moles/Vol]23 mmol/QCmraat79-24PqueyTrihealth Bethesda Butler HospitalComment on above:Performed By: #### TERESA, BMPX #### [facility] [employer] [address] [place] [address] Youtuber: RAH Gillreatinine [Mass/Vol]1.6 mg/dLHigh0.50-0.90[facility] HospitalComment on above:Performed By: #### TERESA, BMPX #### [facility] [employer] [address] [place] [address] Youtuber: Michael Chen MDGFR/1.73 sq M.predicted among non-blacks MDRD (S/P/Bld) [Vol rate/Area]35 mL/min/{1.73_m2}Low>60MerMercy HospitalComment on above:Result Comment: These results are not intended for [...] or following therapy that affects renal tubular secretion.Performed By: #### CDP, BMPX #### [facility] [employer] [address] [place] [address] Youtuber: Michael Chen MDGlucose [Mass/Vol]89 mg/iEBczymn94-98GpqfbCentinela Freeman Regional Medical Center, Memorial CampusComment on above:Performed By: #### CDP, BMPX #### [address] [address] Youtuber: CHIP Gillotassium [Moles/Vol]4.6 mmol/LNormal3.7-5.3 [facility] Butler HospitalComment on above:Result Comment: SPECIMEN SLIGHTLY HEMOLYZED, RESULTS MAY BE ADVERSELY AFFECTED.Performed By: #### CDP, BMPX #### [facility] [address] [place] [address] Youtuber: SHALINI Gillodium [Moles/Vol]138 mmol/KTlznnr052-635TgqarTrihealth Bethesda Butler HospitalComment on above:Performed By: #### TERESA, BMPX #### [facility] [address] [place] [address] Youtuber: Michael Chen MDUrea nitrogen [Mass/Vol]57 mg/dLMon Health Medical Center8-23[facility] HospitalComment on above:Performed By: #### CDP, BMPX #### [address] [address] Youtuber: Michael Chen MDBrain Natri. Peptideon 87-05-7465Zyzmllpkmjx peptide B (Bld) [Mass/Vol]1428 pg/mLMon Health Medical Center0-300[facility] Comment on above:Result Comment: An age-independent cutoff point of 300 pg/ml has a 98% negative predictive value excluding acute heart failure.Performed By: #### CDP, BMPX #### [address] [address] Youtuber: Michael Chen MDLiver Profileon 61-72-1994Ljoenam [Mass/Vol]3.5 g/dLNormal3.5-5.2MCentinela Freeman Regional Medical Center, Memorial CampusComment on above:Performed By: #### CDP, BMPX #### [address] [address] Youtuber: Michael Chen MDAlbumin/Glob Ratio2.7Npgzrb6.0-2.5[facility] HospitalComment on above:Performed By: #### CDP, BMPX #### [address] [address] Youtuber: Antione Gillkaline Qmuw571 U/QTutg83-716UzbxaTrihealth Bethesda Butler HospitalComment on above:Performed By: #### CDP, BMPX #### [address] [address] Youtuber: Michael Chen MDALT [Catalytic activity/Vol]17 U/GIcxlml66-43 [facility] HospitalComment on above:Performed By: #### CDP, BMPX #### [address] [address] Youtuber: Michael Chen MDAST [Catalytic activity/Vol]33 U/SDdijzj28-72 [facility] HospitalComment on above:Result Comment: SPECIMEN SLIGHTLY HEMOLYZED, RESULTS MAY BE ADVERSELY AFFECTED.Performed By: #### CDP, BMPX #### [address] [address] Youtuber: Michael Chen MDBilirubin [Mass/Vol]0.2 mg/dLNormal0.00-1.20 [facility] HospitalComment on above:Performed By: #### CDP, BMPX #### [address] [address] Youtuber: Michael Chen MDBilirubin, Indirect0.1 mg/dLNormal0.0-1.0[facility] Butler HospitalComment on above:Performed By: #### CDP, BMPX #### [facility] [address] [place] [address] Youtuber: Michael Chen MDBilirubin.indirect [Mass/Vol]mg/dLNormal 0.00-0.30[facility] HospitalComment on above:Performed By: #### CDP, BMPX #### [facility] [address] [place] [address] Youtuber: Michael Chen MDGlobulin (S) [Mass/Vol]2.1 g/dLNormalTrihealth Bethesda Butler HospitalComment on above:Performed By: #### CDP, BMPX #### [facility] [address] [place] [address] Youtuber: CHIP Gillrotein [Mass/Vol]5.6 g/dLLow6.6-8.7[facility] HospitalComment on above:Performed By: #### CDP, BMPX #### [facility] [address] [place] [address] Youtuber: Hill Gill Rejectionon 15-21-8469Ozpwiv for rejectionUnable to perform testing: Specimen clotted.NormalTrihealth Bethesda Butler HospitalComment on above:Performed By: #### CDP, BMPX #### [facility] [address] [place] [address] Youtuber: Berkley Gill of sample.BLOODNormalTrihealth Bethesda Butler HospitalComment on above:Performed By: #### CDP, BMPX #### [facility] [address] [place] [address] Youtuber: Michael Chen MDTest orderedCDPNormalTrihealth Bethesda Butler HospitalComment on above:Performed By: #### CDP, BMPX #### [facility] [address] [place] [address] Youtuber: FELIPA Gill CERVICAL SPINE (2-3 VIEWS)on 28-81-5229ED CERVICAL SPINE (2-3 VIEWS)EXAMINATION: 4 XRAY VIEWS OF THE CERVICAL SPINE [...] Signed by: Carlos Peralta MD 09/30/23 Final resultNoGood Samaritan HospitalXR CHEST PORTABLEon 09-30-2023 XR CHEST PORTABLEEXAMINATION: ONE XRAY VIEW OF THE CHEST 09/30/2023 [...] Signed by: Carlos Peralta MD 09/30/23 Final resultNoGood Samaritan HospitalAbsolute reticulocyte count Ordered By: Los Grissom on 12-69-8630Ctmwqeurigguk (Bld) [#/Vol]0.039 10*6/uL 0.024-0.084Pomerene HospitalBasic Metabolic Panelon 07-03-2023 Creatinine Clr Calc Oweeejus63.88NoKindred Hospital LimaComment on above:Performed By: #### [id number], MG, BMP, JOSE, FE and TIBC, RETIC #### [facility] [address] [id number] USAGFR/1.73 sq M.predicted MDRD (S/P/Bld) [Vol rate/Area] 23.348 mL/min/{1.73_m2}NormalPomerene HospitalComment on above: Performed By: #### SKRD66GCI, MG, BMP, JOSE, FE and TIBC, RETIC #### [place] [address] USACalcium [Mass/volume] in Serum or PlasmaOrdered By: Jim Randhawa on 48-25-6810Vjufzca [Mass/Vol]8.3 mg/dLLow8.6-10.3FClinton Memorial HospitalComment on above:Performed By: #### FMNT38CNR, MG, BMP, JOSE, FE and TIBC, RETIC #### [place] [address] USACarbon dioxide, total [Moles/volume] in Serum or Plasma Ordered By: Jim Randhawa on 20-59-5834JP5 [Moles/Vol]20.4 mmol/LLow21.0-31.0 [facility] HospitalComment on above:Performed By: #### DSCR30MTO, MG, BMP, JOSE, FE and TIBC, RETIC #### [place] [address] USAChloride [Moles/volume] in Serum or PlasmaOrdered By: Jim Randhawa on 53-28-6493Xzhfkqgk [Moles/Vol]106 mmol/YDceqbo06-048RyapflqwiPomerene HospitalComment on above:Performed By: #### ACTW64PVG, MG, BMP, JOSE, FE and TIBC, RETIC #### [place] [address] USACreatinine [Mass/volume] in Serum or PlasmaOrdered By: Jim Randhawa on 72-55-6203Xzqfsrctwj [Mass/Vol]2.32 mg/dLHigh0.60-1.20[facility] HospitalComment on above:Performed By: #### DLZQ43CDP, MG, BMP, JOSE, FE and TIBC, RETIC #### [facility] [address] [place] [address] [facility] transthoracicon 06-00-4076GSK echo transthoracic [facility] [address] [place] [address] [place] [address] Echocardiogram Signed Patient: Mabel Moser MR#: [id number] : 1960 Acct:[id number] Age/Sex: 63 / F ADM Date: 06/29/23 Loc: Room: [address] [place] [address] Type: DIS IN Attending Dr: Jim Randhawa DO Ordering Provider: Jim Randhawa DO Date of Service: 07/02/2301/16/859 ECH/ECH echo transthoracic: swelling Copies to: MD Jim Meyer DO Weight: 189 lb Performed By: Judah Pinot [facility] BSA: 1.9 m2 BP: 112/75 mmHg [...] FS: 40.8 % Ao root area: 7.8 fc4RCUn ap4: 8.4 cm TAPSE: 2.6 cm EDV(Teich): [...] 1155 Signed By: Benjie Leach MD 07/03/23 1445NormalPomerene HospitalFerritin [Mass/volume] in Serum or PlasmaOrdered By: [place] on 94-03-4284Dyziqjjb [Mass/Vol]71.9 ng/pBHoksmd90.0-306.8P[facility] HospitalComment on above:Performed By: #### WIFU50ZWJ, MG, BMP, JOSE, FE and TIBC, RETIC #### [place] [address] USAFolate [Mass/volume] in Serum or PlasmaOrdered By: [place] Grissom on 74-50-7077Lccbem [Mass/Vol]11.1 ng/mL>5.9P[facility]rene HospitalComment on above:Folate reference range: >5.9 ng/mlThe WHO technical consultation on folate and vitamin a67ogkdiyqienrk has determined that folate concentrations lessthan 4 ng/ml are considered deficient.Glucose [Mass/volume] in Serum or PlasmaOrdered By: Jim Randhawa on 67-25-9513Pmnkfrn [Mass/Vol]99 mg/pXUlcilw02-167InhplscevPomerene HospitalComment on above:ADA recommended reference rangeRandom Glucose Reference Range is dependent on time and content of last meal. Glucose of more than 200 mg/dL in a nonstressed, ambulatory subject supports the diagnosisof Diabetes Mellitus.Result Comment: Random Glucose Reference Range is dependent on time and content of last meal. Glucose of more than 200 mg/dL in a nonstressed, ambulatory subject supports the diagnosis of Diabetes Mellitus. ADA recommended reference rangePerformed By: #### [id number], MG, BMP, JOSE, FE and TIBC, RETIC #### [facility] [address] [place] [address] USAIron [Mass/volume] in Serum or PlasmaOrdered By: [place] Grissom on 10-78-6439Twca [Mass/Vol]59 ug/zXJtsjjm29-455IduztteiePomerene HospitalComment on above:Performed By: #### [id number], MG, BMP, JOSE, FE and TIBC, RETIC #### [facility] [address] [place] [address] USAIron and TIBC Profileon 07-03-2023% Iron Imffbtxsob25.8 % Gannxa38-39TiqkoctcrPomerene HospitalComment on above:Performed By: #### ETRF63RSX, MG, BMP, JOSE, FE and TIBC, RETIC #### [facility] [address] [place] [address] USATotal Iron Binding Lxslmetn119 ug/cPNwrtpd233-402YfglaxbmjPomerene HospitalComment on above:Performed By: #### NGRP51PYF, MG, BMP, JOSE, FE and TIBC, RETIC #### [facility] [address] [place] [address] USAIron binding capacity [Mass/volume] in Serum or Plasma Ordered By: Los Grissom on 84-76-0419Awiy binding capacity [Mass/Vol]259 ug/dL 255-450Pomerene HospitalIron saturation [Mass Fraction] in Serum or PlasmaOrdered By: [place] Grissom on 57-99-6251Nmng saturation [Mass fraction] 22.8 %20-50Pomerene HospitalMagnesium [Mass/volume] in Serum or PlasmaOrdered By: Jim Randhawa on 37-33-9913Ncrhjbaxu [Mass/Vol]2.0 mg/dLNormal 1.9-2.7FClinton Memorial HospitalComment on above:Performed By: #### UHOZ87DXM, MG, BMP, JOSE, FE and TIBC, RETIC #### [facility] [address] [id number] USANo Panel InformationOrdered By: Jim Randhawa on 07-03-2023 Estimated GFR (CKD-EPI)23.348 mL/MinPomerene HospitalPharmacy Creatinine Clearance (Chem25.88Pomerene HospitalPotassium [Moles/volume] in Serum or PlasmaOrdered By: Jim Randhawa on 71-35-5671Afnwbhnwg [Moles/Vol]3.9 mmol/LNormal3.5-5.1FClinton Memorial HospitalComment on above:Performed By: #### MDKX32MCH, MG, BMP, JOSE, FE and TIBC, RETIC #### [facility] [address] [id number] USAReticulocyte Counton 67-26-3715Vkccajtgimqn Number0.039 10*6/uLNormal0.024-0.084Pomerene HospitalComment on above:Result Comment: PERFORMED BY: [place] [address] PATHOLOGIST [employer]NER GAVIN M.D.Performed By: #### MXGS05NUN, MG, BMP, JOSE, FE and TIBC, RETIC #### [facility] [address] [id number] USAReticulocyte Percent1.5 %Normal0.5-1.5FClinton Memorial HospitalComment on above:Performed By: #### AADQ15KME, MG, BMP, JOSE, FE and TIBC, RETIC #### [facility] [address] [place] [address] USAReticulocytes/100 RBC Auto (Bld)Ordered By: Los Grissom on 86-78-3308Ccamqqyvooiwh/100 RBC (Bld)1.5 %0.5-1.5FFirelands Regional Medical Center South Campuserum or plasma anion gap determinationOrdered By: Jim Randhawa on 96-10-6630Zedke gap [Moles/Vol]11.5 mmol/LNormal6.0-15.0[facility] HospitalComment on above:Performed By: #### UZJQ84IXU, MG, BMP, JOSE, FE and TIBC, RETIC #### [facility] [address] [place] [address] USASodium [Moles/volume] in Serum or PlasmaOrdered By: Jim Randhawa on 93-06-7521Fkfsym [Moles/Vol]134 mmol/HEnl884-158YntctwrhgPomerene HospitalComment on above:Performed By: #### XACI46KHH, MG, BMP, JOSE, FE and TIBC, RETIC #### [facility] [address] [place], [place] [address] USATransferrin [Mass/volume] in Serum or PlasmaOrdered By: Los Grissom on 48-92-2514Fywvswhuqyp [Mass/Vol]185 mg/kLRru286-226BmnidzzmkPomerene HospitalComment on above:Performed By: #### [id number], MG, BMP, JOSE, FE and TIBC, RETIC #### [facility] [address] [place], [place] [address] USAUrea nitrogen [Mass/volume] in Serum or PlasmaOrdered By: Jim Randhawa on 07-49-6738Fikx nitrogen [Mass/Vol]95 mg/dLHigh7-25P[facility] HospitalComment on above:Performed By: #### SILZ11GFR, MG, BMP, JOSE, FE and TIBC, RETIC #### [facility] [address] [place], [place] [address] USAVit. B12/Folate Profileon 76-66-4451Onwwff94.1 ng/mLNormal >5.9P[facility] HospitalComment on above:Result Comment: Folate reference range: >5.9 ng/ml The WHO technical consultation on folate and vitamin b12 deficiencies has determined that folate concentrations less than 4 ng/ml are considered deficient. PERFORMED BY: [place] [address] PATHOLOGIST [employer] T[employer]NER GAVIN M.D.Performed By: #### [id number], MG, BMP, JOSE, FE and TIBC, RETIC #### [place] [address] USAVitamin B12 ser/plasOrdered By: Los Grissom on 07-03-2023 Cobalamin (Vitamin B12) [Mass/Vol]3564 pg/zNRxez393-432YrfqnjkmcPomerene HospitalComment on above:Performed By: #### RKML54PIL, MG, BMP, JOSE, FE and TIBC, RETIC #### [place] [address] USABasic Metabolic Panelon 13-92-8544Ynjpq gap [Moles/Vol] 11.0 mmol/LNormal6.0-15.0P[facility] HospitalComment on above: Performed By: #### OCBD68GPA, MG, BMP, JOSE, FE and TIBC, RETIC #### [place] [address] USACalcium [Mass/Vol]8.4 mg/dLLow8.6-10.3FClinton Memorial HospitalComment on above:Performed By: #### UVEA48NEV, MG, BMP, JOSE, FE and TIBC, RETIC #### [place] [address] USAChloride [Moles/Vol]104 mmol/NUwsvih57-930KahmirmraPomerene HospitalComment on above:Performed By: #### SJDA89EIQ, MG, BMP, JOSE, FE and TIBC, RETIC #### [place] [address] USACO2 [Moles/Vol]20.2 mmol/LLow21.0-31.0P[facility] HospitalComment on above:Performed By: #### OXHF40FDS, MG, BMP, JOSE, FE and TIBC, RETIC #### [address] [place] [address] USACreatinine [Mass/Vol]2.31 mg/dLHigh0.60-1.20P[facility] HospitalComment on above:Performed By: #### UEVH99XCE, MG, BMP, JOSE, FE and TIBC, RETIC #### [facility] [address] [place] [address] USACreatinine Clr Calc Uhdnkzrr11.22NormalPomerene HospitalComment on above:Performed By: #### CKON84DWS, MG, BMP, JOSE, FE and TIBC, RETIC #### [facility] [address] [place] [address] USAGFR/1.73 sq M.predicted MDRD (S/P/Bld) [Vol rate/Area] 23.469 mL/min/{1.73_m2}NormalPomerene HospitalComment on above: Performed By: #### QOXM67UBX, MG, BMP, JOSE, FE and TIBC, RETIC #### [place] [address] USAGlucose [Mass/Vol]89 mg/vTAbwnkj35-999GfhfzsgnjPomerene HospitalComment on above:Result Comment: Random Glucose Reference Range is dependent on time and content of last meal. Glucose of more than 200 mg/dL in a nonstressed, ambulatory subject supports the diagnosis of Diabetes Mellitus. ADA recommended reference rangePerformed By: #### DPYG57DVT, MG, BMP, JOSE, FE and TIBC, RETIC #### [place] [address] USAPotassium [Moles/Vol]4.2 mmol/LNormal3.5-5.1FClinton Memorial HospitalComment on above:Performed By: #### RXVA29LUG, MG, BMP, JOSE, FE and TIBC, RETIC #### [place] [address] USASodium [Moles/Vol]131 mmol/XGyr869-326GyqtzqtgvPomerene HospitalComment on above:Performed By: #### RKJN60HVM, MG, BMP, JOSE, FE and TIBC, RETIC #### [facility] [address] [place] [address] USAUrea nitrogen [Mass/Vol]100 mg/dLHigh7-25P[facility] HospitalComment on above:Performed By: #### SQLQ91GZF, MG, BMP, JOSE, FE and TIBC, RETIC #### [facility] [address] [place] [address] USAErythrocyte distribution width Auto (RBC) [Ratio]Ordered By: Jim Randhawa on 39-59-3915Zuzpgpzloek distribution width (RBC) [Ratio]14.2 % 11.9-15.3FClinton Memorial HospitalHematocrit Auto (Bld) [Volume fraction]Ordered By: Jim Randhawa on 88-25-9541Jcvnsbltxh (Bld) [Volume fraction]25.0 %34.0-46.4FClinton Memorial HospitalHemoglobin [Mass/volume] in BloodOrdered By: Jim Randhawa on 87-69-1911Liwlfvmouy (Bld) [Mass/Vol]8.4 g/dL11.8-15.4FClinton Memorial HospitalHemogram CBC Without Diffon 13-86-8608Dmdpowvckwu distribution width (RBC) [Ratio]14.2 %Normal 11.9-15.3FClinton Memorial HospitalComment on above:Performed By: #### RLPN89PDU, MG, BMP, JOSE, FE and TIBC, RETIC #### [place] [address] USAHematocrit (Bld) [Volume fraction]25.0 %Low34.0-46.4 [facility] HospitalComment on above:Performed By: #### LPLW51AAA, MG, BMP, JOSE, FE and TIBC, RETIC #### [place] [address] USAHemoglobin (Bld) [Mass/Vol]8.4 g/dLLow11.8-15.4FClinton Memorial HospitalComment on above:Performed By: #### XFQC62YOB, MG, BMP, JOSE, FE and TIBC, RETIC #### [address]H (RBC) [Entitic mass]32.3 ueEmadpw13.7-34.3FClinton Memorial HospitalComment on above:Performed By: #### FUGP19TID, MG, BMP, JOSE, FE and TIBC, RETIC #### [place] [address] USAMCV (RBC) [Entitic vol]96.6 zLKbifgt05-407TktyjnhoqPomerene HospitalComment on above:Performed By: #### LTZV45KVD, MG, BMP, JOSE, FE and TIBC, RETIC #### [place] [address] USAMean Corpuscular HGB Conc33.4 g/wMDttddq35.0-35.0Pome[facility] HospitalComment on above:Performed By: #### LASI08DTT, MG, BMP, JOSE, FE and TIBC, RETIC #### [place] [address] USAPlatelet mean volume (Bld) [Entitic vol]7.7 fLNormal 6.3-10.7FClinton Memorial HospitalComment on above:Result Comment: PERFORMED BY: [place] [address] PATHOLOGIST [employer] T[employer]NER GAVIN M.D.Performed By: #### DWWK39ATZ, MG, BMP, JOSE, FE and TIBC, RETIC #### [place] [address] USAPlatelets (Bld) [#/Vol]217 10*3/uZYjelbb001-245JzhgxsvasPomerene HospitalComment on above:Performed By: #### HKJX61TNT, MG, BMP, JOSE, FE and TIBC, RETIC #### [place] [address] USARBC (Bld) [#/Vol]2.59 10*6/uLLow3.60-5.00P[facility] HospitalComment on above:Performed By: #### KFZJ13IQE, MG, BMP, JOSE, FE and TIBC, RETIC #### [facility] [address] [place] [address] USAWBC (Bld) [#/Vol]6.1 10*3/uLNormal3.8-11.6FClinton Memorial HospitalComment on above:Performed By: #### YYQN38OHY, MG, BMP, JOSE, FE and TIBC, RETIC #### [facility] [address] [place] [address] USALeukocytes [#/volume] corrected for nucleated erythrocytes in Blood by Automated counOrdered By: Jim Randhawa on 02-25-3836BLZ corrected for nucl RBC Auto (Bld) [#/Vol]6.1 10*3/uL3.8-11.6FFlower HospitalH Auto (RBC) [Entitic mass]Ordered By: Jim Randhawa on 70-44-2972OYE (RBC) [Entitic mass]32.3 pg24.7-34.3FFlower HospitalHC Auto (RBC) [Mass/Vol]Ordered By: Jim Randhawa on 78-82-2028FTFS (RBC) [Mass/Vol]33.4 g/dL32.0-35.0Pomerene HospitalMCV Auto (RBC) [Entitic vol] Ordered By: Jim Randhawa on 04-41-2267FSJ (RBC) [Entitic vol]96.6 zB77-578 Pomerene HospitalMagnesiumon 43-83-7053Hfzpkzgii [Mass/Vol]2.1 mg/dLNormal1.9-2.7FClinton Memorial HospitalComment on above:Result Comment: PERFORMED BY: [place] [address] PATHOLOGIST [employer] T[employer]NER GAVIN M.D.Performed By: #### BHWP46JCE, MG, BMP, JOSE, FE and TIBC, RETIC #### [facility] [address] [place] [address] USAPlatelet mean volume Auto (Bld) [Entitic vol]Ordered By: Jim Randhawa on 62-13-7536Ccmksiry mean volume (Bld) [Entitic vol]7.7 fL6.3-10.7 Pomerene HospitalPlatelets Auto (Bld) [#/Vol]Ordered By: Jim Randhawa on 98-53-4021Huttzctlq (Bld) [#/Vol]217 10*3/jP832-191FeitnczmhPomerene HospitalRBC Auto (Bld) [#/Vol]Ordered By: Jim Randhawa on 64-34-4171NFW (Bld) [#/Vol]2.59 10*6/uL3.60-5.00Pomerene HospitalBasic Metabolic Panelon 54-47-7439Fapes gap [Moles/Vol]11.9 mmol/LNormal6.0-15.0 [facility] HospitalComment on above:Order Comment: LINE DRAW Performed By: #### NDSV71MOS, MG, BMP, JOSE, FE and TIBC, RETIC #### [facility] [address] [place] [address] USACalcium [Mass/Vol]8.9 mg/dLNormal8.6-10.3FClinton Memorial HospitalComment on above:Order Comment: LINE DRAWPerformed By: #### SPGT16HLH, MG, BMP, JOSE, FE and TIBC, RETIC #### [facility] [address] [place] [address] USAChloride [Moles/Vol]108 mmol/KJaoj72-594KpkpqnmbwPomerene HospitalComment on above:Order Comment: LINE DRAWPerformed By: #### FNHK82VAG, MG, BMP, JOSE, FE and TIBC, RETIC #### [facility] [address] [place] [address] USACO2 [Moles/Vol]18.5 mmol/LLow21.0-31.0P[facility] HospitalComment on above:Order Comment: LINE DRAWPerformed By: #### FYEC04CEV, MG, BMP, JOSE, FE and TIBC, RETIC #### [facility] [address] [id number] USACreatinine [Mass/Vol]2.63 mg/dLSignificant change up 0.60-1.20P[facility] HospitalComment on above:Order Comment: LINE DRAWPerformed By: #### CPSG57LPK, MG, BMP, JOSE, FE and TIBC, RETIC #### [facility] [address] [place] [address] USACreatinine Clr Calc Nfhwsujq42.09NormalPomerene HospitalComment on above:Order Comment: LINE DRAWPerformed By: #### QITW12RHF, MG, BMP, JOSE, FE and TIBC, RETIC #### [facility] [address] [place] [address] USAGFR/1.73 sq M.predicted MDRD (S/P/Bld) [Vol rate/Area] 20.085 mL/min/{1.73_m2}NormalPomerene HospitalComment on above: Order Comment: LINE DRAWPerformed By: #### SQFX61OYY, MG, BMP, JOSE, FE and TIBC, RETIC #### [facility] [address] [place] [address] USAGlucose [Mass/Vol]128 mg/kSZcvl27-812QbtovbmahPomerene HospitalComment on above:Order Comment: LINE DRAWResult Comment: Random Glucose Reference Range is dependent on time and content of last meal. Glucose of more than 200 mg/dL in a nonstressed, ambulatory subject supports the diagnosis of Diabetes Mellitus. ADA recommended reference rangePerformed By: #### ZWZJ62WRC, MG, BMP, JOSE, FE and TIBC, RETIC #### [facility] [address] [place] [address] USAPotassium [Moles/Vol]4.4 mmol/LNormal3.5-5.1FClinton Memorial HospitalComment on above:Order Comment: LINE DRAWPerformed By: #### NGCU64NPN, MG, BMP, JOSE, FE and TIBC, RETIC #### [facility] [address] [id number] USASodium [Moles/Vol]134 mmol/JMzo380-238XexezhrluPomerene HospitalComment on above:Order Comment: LINE DRAWPerformed By: #### HOBQ60MBA, MG, BMP, JOSE, FE and TIBC, RETIC #### [place] [address] USAUrea nitrogen [Mass/Vol]104 mg/dLHigh7-25Pomerene HospitalComment on above:Order Comment: LINE DRAWPerformed By: #### BEQY27XDZ, MG, BMP, JOSE, FE and TIBC, RETIC #### [place] [address] USAMagnesiumon 49-79-6190Mrtevbyqz [Mass/Vol]2.3 mg/dLNormal 1.9-2.7FClinton Memorial HospitalComment on above:Order Comment: LINE DRAWResult Comment: PERFORMED BY: [place] [address] PATHOLOGIST [employer]NER GAVIN M.D.Performed By: #### DJRD99IHC, MG, BMP, JOSE, FE and TIBC, RETIC #### [place] [address] USABasic Metabolic Panelon 91-43-3404Bmnck gap [Moles/Vol] 14.6 mmol/LNormal6.0-15.0P[facility] HospitalComment on above: Performed By: #### [id number], MG, BMP, JOSE, FE and TIBC, RETIC #### [place] [address] USACalcium [Mass/Vol]8.6 mg/dLNormal8.6-10.3FClinton Memorial HospitalComment on above:Performed By: #### DGNT04AXO, MG, BMP, JOSE, FE and TIBC, RETIC #### [place] [address] USAChloride [Moles/Vol]109 mmol/XZlrm06-048DwazerjsnPomerene HospitalComment on above:Performed By: #### IZYI10QUY, MG, BMP, JOSE, FE and TIBC, RETIC #### [address] [place] [address] USACO2 [Moles/Vol]15.0 mmol/LLow21.0-31.0Pomerene HospitalComment on above:Performed By: #### CKIP62XEN, MG, BMP, JOSE, FE and TIBC, RETIC #### [facility] [address] [place] [address] USACreatinine [Mass/Vol]3.16 mg/dLHigh0.60-1.20Pomerene HospitalComment on above:Performed By: #### TERR17SPT, MG, BMP, JOSE, FE and TIBC, RETIC #### [facility] [address] [place] [address] USACreatinine Clr Calc Stkoupdp22.26NormAdena Regional Medical CenterComment on above:Performed By: #### WOJR34JTL, MG, BMP, JOSE, FE and TIBC, RETIC #### [place] [address] USAGFR/1.73 sq M.predicted MDRD (S/P/Bld) [Vol rate/Area] 16.114 mL/min/{1.73_m2}NormalPomerene HospitalComment on above: Performed By: #### [id number], MG, BMP, JOSE, FE and TIBC, RETIC #### [place] [address] USAGlucose [Mass/Vol]79 mg/[id number] HospitalComment on above:Result Comment: Random Glucose Reference Range is dependent on time and content of last meal. Glucose of more than 200 mg/dL in a nonstressed, ambulatory subject supports the diagnosis of Diabetes Mellitus. ADA recommended reference rangePerformed By: #### [id number], MG, BMP, JOSE, FE and TIBC, RETIC #### [place] [address] USAPotassium [Moles/Vol]4.6 mmol/LNormal3.5-5.1FClinton Memorial HospitalComment on above:Performed By: #### [id number], MG, BMP, JOSE, FE and TIBC, RETIC #### [facility] [facility] [address] [place] [address] USASodium [Moles/Vol]134 mmol/UKzg366-843NvezdovghPomerene HospitalComment on above:Performed By: #### [id number], MG, BMP, JOSE, FE and TIBC, RETIC #### [place] [address] USAUrea nitrogen [Mass/Vol]117 mg/dLHigh7-25Pomerene HospitalComment on above:Performed By: #### [id number], MG, BMP, JOSE, FE and TIBC, RETIC #### [place] [address] USAMagnesiumon 58-85-2125Puhjwwtih [Mass/Vol]2.5 mg/dLNormal 1.9-2.7FClinton Memorial HospitalComment on above:Result Comment: PERFORMED BY: [place] [address] PATHOLOGIST [employer] GAVIN M.D.Performed By: #### [id number], MG, BMP, JOSE, FE and TIBC, RETIC #### [place] [address] USACBC AUTO DIFFon 10-91-1227KPGF #0.0 103/ulNormal0.0-0.1The [facility] [place] [facility] CenterComment on above:Performed By: #### CBC ####[facility] [place] [facility] Ftyxmjdxvc[address] [place], [place] [address]Dr.Yilan ChangBasophils/100 WBC (Bld)0.6 %Normal0.2-2.0The [facility] [place] [facility] CenterComment on above:Performed By: #### CBC ####[facility] [place] [facility] Etbycdupoa[address] [place], [place] [address]Dr.Yilan ChangEO #0.1 103/ulNormal0.0-0.7The [facility] [place] [facility] CenterComment on above:Performed By: #### CBC ####[facility] [place] [facility] Ttoy[address]oumdm[address] [place] [address]Dr.Airam ChangEosinophils/100 WBC (Bld)1.7 %Normal 0.9-7.0The [facility] [place] [facility] CenterComment on above:Performed By: #### CBC ####[facility] [place] [facility] Zcgrbjfiyu[address] [place], [place] [address]Dr.Airam Tripathi Erythrocyte distribution width (RBC) [Ratio]15.2 %Critically high11.0-15.0The [facility] [place] [facility] CenterComment on above:Performed By: #### CBC ####[facility] [place] [facility] Iguhlkvxvs236[address] [place], [place] [address]Dr.Airam ChangHematocrit (Bld) [Volume fraction]31.6 %Critically low36.0-48.0The [facility] [place] [facility] CenterComment on above:Performed By: #### CBC ####[facility] [place] [facility] Exwclvfetv5[address] [place], [place] [address]Dr.Airam ChangHemoglobin (Bld) [Mass/Vol]9.9 g/dL Critically low12.0-16.0The [facility] [place] [facility] CenterComment on above:Performed By: #### CBC ####[facility] [place] [facility] Mqqmalgbac[address] [place], [place] [address]Dr. Airam ChangIG #0.02 10e3/ulNormal0.00-0.03The [facility] [place] [facility] CenterComment on above: Performed By: #### CBC ####[facility] [place] [facility] Ulzqulalnv44[address] [place], [place] [address]Dr.Airam ChangIG %0.4 %Normal0.0-0.5The [facility] [place] [facility] CenterComment on above:Performed By: #### CBC ####[facility] [place] [facility] Uhvbevlxwx460[address] [place], [place] [address]Dr.Selenaneil ChangLYMPH #0.8 103/ulCritically low1.2-3.8The [facility] [place] [facility] CenterComment on above:Performed By: #### CBC ####[facility] [place] [facility] Tooaukdpnw7167[address] [place], [place] [address]Dr.Airam ChangLymphocytes/100 WBC (Bld)16.9 %Critically low20.5-60.0The [facility] [place] [facility] CenterComment on above:Performed By: #### CBC ####[facility] [place] [facility] [address]gvz[address] [place] [address]Dr.Airam TripathiMANUAL DIFF REQ NONormalThe [facility] [place] [facility] CenterComment on above:Performed By: #### CBC ####[facility] [place] [facility] Rvgtzxiuzd46[address] [place] [address]Dr. Airam TripathiH (RBC) [Entitic mass]28.4 ylVpnxch81.7-34.0The [facility] [place] [facility] Comment on above:Performed By: #### CBC ####[facility] [place] [facility] Eahzxetinc6[address] [place], [place] [address]Dr.Airam TripathiHC (RBC) [Mass/Vol]31.3 g/dL Cloktx29.9-35.2The [facility] [place] [facility] CenterComment on above:Performed By: #### CBC ####[facility] [place] [facility] Srokqfrdsp8846[address] [place], [place] [address]Dr. Selenaneil TripathiV (RBC) [Entitic vol]90.8 vJGeziln85.0-99.0The [facility] [place] [facility] Comment on above:Performed By: #### CBC ####[facility] [place] [facility] Bpbgaumuqt27[address] [place], [place] [address]Dr.Airam TripathiMONO #0.4 103/ulNormal0.3-0.8 The [facility] [place] [facility] CenterComment on above:Performed By: #### CBC ####[facility] [place] [facility] Clhrwljfzs8713[address] [place], [place] [address]Dr.Airam Deuce Monocytes/100 WBC (Bld)8.9 %Normal1.7-12.0The [facility] [place] [facility] CenterComment on above: Performed By: #### CBC ####[facility] [place] [facility] Ljevlyrqer35[address] [place], [place] [address]Dr.Airam DeuceNEUT #3.4 103/ulNormal1.4-6.5The [facility] [place] [facility] CenterComment on above:Performed By: #### CBC ####[facility] [place] [facility] Atxlrydyhc1055[address] [place], [place] [address]Dr.Selenaneil TripathiNeutrophils/100 WBC (Bld)71.5 %Xfzkcn75.0-75.0The [facility] [place] [facility] CenterComment on above:Performed By: #### CBC ####[facility] [place] [facility] Nofzcenukm5734[address] [place], [place] [address]Dr.Airam TripathiPlatelet mean volume (Bld) [Entitic vol]9.4 fLCritically low 9.5-13.5The [facility] [place] [facility] CenterComment on above:Performed By: #### CBC ####[facility] [place] [facility] Fjgwmacoro2273[address] [place], [place] [address]Dr. Selenaneil TripathiZbzzoHUE077 103/pzYsgzhc287-756Vgn [facility] [place] [facility] CenterComment on above: Performed By: #### CBC ####[facility] [place] [facility] Upmrjtcveb9513[address] [place], [place] [address]Dr.Selenaneil TripathiRBC3.48 106/ulCritically low4.20-5.40The [facility] [place] [facility] CenterComment on above:Performed By: #### CBC ####[facility] [place] [facility] Btoshadiix8225[address] [place], [place] [address]Dr.Selenaneil TripathiWBC4.7 103/ul Normal4.0-11.0The [facility] [place] [facility] CenterComment on above:Performed By: #### CBC ####[facility] [place] [facility] Lsgongaiuh2883[address] [place], [place] [address]Dr. Airam TripathiPROF 14(COMP METB)on 19-91-5826Jmqxrgt [Mass/Vol]3.4 g/dLNormal 3.4-5.0The [facility] [place] [facility] CenterComment on above:Performed By: #### CMP ####[facility] [place] [facility] Pnfdloayck10[address] [place], [place] [address]Dr.Airam Tripathi Albumin/Globulin [Mass ratio]1.0 {ratio}NormalThe [facility] [place] [facility] CenterComment on above:Performed By: #### CMP ####[facility] [place] [facility] Xvarkcphfj4974[address] [place], [place] [address]Dr.Airam TripathiALP [Catalytic activity/Vol]123 U/L Critically odia22-153Goj [facility] [place] [facility] CenterComment on above:Performed By: #### CMP ####[facility] [place] [facility] Fdilweroit392[address] [place], [place] [address]Dr. Airam TripathiALT [Catalytic activity/Vol]24 U/DByczrj95-48Rje [facility] [place] [facility] Comment on above:Performed By: #### CMP ####[facility] [place] [facility] Dtdjrxgays6018[address] [place], [place] [address]Dr.Yilan ChangAnion gap [Moles/Vol]12.1 mmol/LNormalThe [facility] [place] [facility] CenterComment on above:Performed By: #### CMP ####[facility] [place] [facility] Luhuednqfh8295[address] [place], [place] [address]Dr. Yilan ChangAST [Catalytic activity/Vol]30 U/DOfnwfh99-02Thh [facility] [place] [facility] Comment on above:Performed By: #### CMP ####[facility] [place] [facility] Vopkkjvniy7707[address] [place], [place] [address]Dr.Yilan ChangBilirubin [Mass/Vol]0.4 mg/dL Normal0.2-1.0The [facility] [place] [facility] CenterComment on above:Performed By: #### CMP ####[facility] [place] [facility] Zmambyisgf079[address] [place], [place] [address]Dr. Yilan ChangCalcium [Mass/Vol]8.9 mg/dLNormal8.5-10.1The [facility] [place] [facility] CenterComment on above:Performed By: #### CMP ####[facility] [place] [facility] Efqnlmpjoj4556[address] [place], [place] [address]Dr.Yilan ChangChloride [Moles/Vol]95 mmol/LCritically tnv32-559Ufx [facility] [place] [facility] CenterComment on above:Performed By: #### CMP ####[facility] [place] [facility] Kicjprflso[address] [place], [place] [address]Dr. Yilan ChangCO2 [Moles/Vol]28.7 mmol/WZiaecs66.0-32.0The [facility] [place] [facility] CenterComment on above:Performed By: #### CMP ####[facility] [place] [facility] Iaiefnbzow050[address] [place], [place] [address]Dr.Yilan ChangCreatinine [Mass/Vol]1.25 mg/dL Critically high0.55-1.02The [facility] [place] [facility] CenterComment on above:Performed By: #### CMP ####[facility] [place] [facility] Liuczsdycj4023[address] [place], [place] [address]Dr.Yilan ChangEGFR-AF ISIEKXFT99 mL/min/1.43w4Zcngkhcqva low>=60The [facility] [place] [facility] CenterComment on above:Performed By: #### CMP ####[facility] [place] [facility] Uzpeviokty[address] [place], [place] [address]Dr.Yilan ChangEGFR-NON AF YNRDCHPU36 mL/min/1.75n9Cuudlxtfze low>=60The [facility] [place] [facility] CenterComment on above: Performed By: #### CMP ####[facility] [place] [facility] Nopsqosqqj473[address] [place], [place] [address]Dr.Yilan ChangGlobulin (S) [Mass/Vol]3.5 g/dLNormalThe [facility] [place] [facility] CenterComment on above:Performed By: #### CMP ####[facility] [place] [facility] Gobhbgkuss3711[address] [place], [place] [address]Dr.Yilan ChangGlucose [Mass/Vol]89 mg/kUMfsvxs32-051Scc [facility] [place] [facility] CenterComment on above:Performed By: #### CMP ####[facility] [place] [facility] Ykoniypxea679[address] [place], [place] [address]Dr.Yilan ChangPotassium [Moles/Vol]4.8 mmol/LNormal3.5-5.1The [facility] [place] [facility] CenterComment on above:Performed By: #### CMP ####[facility] [place] [facility] Gzzigpmdvg5730[address] [place], [place] [address]Dr.Yilan ChangProtein [Mass/Vol]6.9 g/dLNormal6.4-8.2The [facility] [place] [facility] CenterComment on above:Performed By: #### CMP ####[facility] [place] [facility] Dizntelday350[address] [place], [place] [address]Dr.Yilan ChangSodium [Moles/Vol]131 mmol/LCritically vjk828-197Sgz [facility] [place] [facility] CenterComment on above:Performed By: #### CMP ####[facility] [place] [facility] Ntggxpwqwp5240[address] [place], [place] [address]Dr.Yilan ChangUrea nitrogen [Mass/Vol]37.0 mg/dLCritically high7.0-18.0The [facility] [place] [facility] CenterComment on above:Performed By: #### CMP ####[facility] [place] [facility] Xfouwxiqjd4463[address] [place], [place] [address]Dr.Selenaneil DeuceUrea nitrogen/Creatinine [Mass ratio] 29.6 mg/mgNormalThe [facility] [place] [facility] CenterComment on above:Performed By: #### CMP ####[facility] [place] [facility] Bsrtippxhu8769[address] [place], [place] [address]Dr. Airam TripathiOSMOLALITYon 39-90-9572Pyefxpyhuv [Osmolality]293 mosm/kgNormal 275-295The [facility] HospitalComment on above:Performed By: #### OSMO ####[facility] [place] [facility] Czubdzusbz57[address] [place], [place] [address]Dr. Airam TripathiBNPon 82-23-3170Kijzhkrmxtm peptide B (Bld) [Mass/Vol]1142.0 pg/mL Critically high<=900.0The [facility] [place] [facility] CenterComment on above:Performed By: #### BNP ####[facility] [place] [facility] Jjwglqpcyl2460[address] [place], [place] [address]Dr. Airam TripathiCBC AUTO DIFFon 27-98-0081TMMY #0.0 103/ulNormal0.0-0.1The [facility] [place] [facility] CenterComment on above:Performed By: #### CBC ####[facility] [place] [facility] Gmqsfsaphw3239[address] [place], [place] [address]Dr.Airam TripathiBasophils/100 WBC (Bld)0.3 %Normal0.2-2.0The [facility] [place] [facility] CenterComment on above:Performed By: #### CBC ####[facility] [place] [facility] Xzeneqkqbe7601[address] [place], [place] [address]Dr.Airam ChangEO #0.3 103/ulNormal0.0-0.7The [facility] [place] [facility] CenterComment on above:Performed By: #### CBC ####[facility] [place] [facility] Ryudpjxrod4596[address] [place], [place] [address]Dr.Airam ChangEosinophils/100 WBC (Bld)4.6 %Normal 0.9-7.0The [facility] [place] [facility] CenterComment on above:Performed By: #### CBC ####[facility] [place] [facility] Gqnzzqxmtr7795[address] [place], [place] [address]Dr.Airam Tripathi Erythrocyte distribution width (RBC) [Ratio]16.1 %Critically high11.0-15.0The [facility] [place] [facility] CenterComment on above:Performed By: #### CBC ####[facility] [place] [facility] Qkvsgbrwlj5444[address] [place], [place] [address]Dr.Airam DeuceHematocrit (Bld) [Volume fraction]28.0 %Critically low36.0-48.0The [facility] [place] [facility] CenterComment on above:Performed By: #### CBC ####[facility] [place] [facility] Dvvqbztsmu4223[address] [place], [place] [address]Dr.Airam ChangHemoglobin (Bld) [Mass/Vol]8.9 g/dL Critically low12.0-16.0The [facility] [place] [facility] CenterComment on above:Performed By: #### CBC ####[facility] [place] [facility] Gulseucdef2463[address] [place], [place] [address]Dr. Airam ChangIG #0.02 10e3/ulNormal0.00-0.03The [facility] [place] [facility] CenterComment on above: Performed By: #### CBC ####[facility] [place] [facility] Hbbkrhefac7007[address] [place], [place] [address]Dr.Airam ChangIG %0.3 %Normal0.0-0.5The [facility] [place] [facility] CenterComment on above:Performed By: #### CBC ####[facility] [place] [facility] Mhacdmkhww7940[address] [place], [place] [address]Dr.Airam TripathiLYMPH #1.5 103/ulNormal1.2-3.8The [facility] [place] [facility] CenterComment on above:Performed By: #### CBC ####[facility] [place] [facility] Nojilzpafe2448[address] [place], [place] [address]Dr. Airam TripathiLymphocytes/100 WBC (Bld)24.2 %Ijyupg61.5-60.0The [facility] [place] [facility] Comment on above:Performed By: #### CBC ####[facility] [place] [facility] Xifruysjaf6024[address] [place], [place] [address]Dr.Airam TripathiMANUAL DIFF REQNONormalThe [facility] [place] [facility] CenterComment on above:Performed By: #### CBC ####[facility] [place] [facility] Crocrcmftu[address]157[address] [place], [place] [address]Dr.Airam TripathiMCH (RBC) [Entitic mass]29.3 jkVirpet83.7-34.0The [facility] [place] [facility] CenterComment on above: Performed By: #### CBC ####[facility] [place] [facility] [address]wrme[address] [place] [address]Dr.Airam TripathiHC (RBC) [Mass/Vol]31.8 g/dLNormal 29.9-35.2The [facility] HospitalComment on above:Performed By: #### CBC ####[facility] [place] [facility] Nwsqffphvl04[address] [place] [address]Dr. Airam TripathiV (RBC) [Entitic vol]92.1 eKFjahmh92.0-99.0The [facility] [place] [facility] Comment on above:Performed By: #### CBC ####[facility] [place] [facility] Vqvjrwcnpg9638[address] [place], [place] [address]Dr.Airam TripathiMONO #0.6 103/ulNormal0.3-0.8 The [facility] [place] [facility] CenterComment on above:Performed By: #### CBC ####[facility] [place] [facility] Hwkanmnkis04[address] [place], [place] [address]Dr.Airam Tripathi Monocytes/100 WBC (Bld)10.0 %Normal1.7-12.0The [facility] [place] [facility] CenterComment on above:Performed By: #### CBC ####[facility] [place] [facility] Cgyigaorsg0817[address] [place], [place] [address]Dr.Airam TripathiNEUT #3.7 103/ulNormal1.4-6.5The [facility] [place] [facility] CenterComment on above:Performed By: #### CBC ####[facility] [place] [facility] Mexblsxdsj8830[address] [place], [place] [address]Dr.Airam TripathiNeutrophils/100 WBC (Bld)60.6 %Pmfbsv45.0-75.0The [facility] HospitalComment on above:Performed By: #### CBC ####[facility] [place] [facility] Opgfgsarcn54[address] [place], [place] [address]Dr.Airam TripathiPlatelet mean volume (Bld) [Entitic vol]9.1 fLCritically low 9.5-13.5The [facility] HospitalComment on above:Performed By: #### CBC ####[facility] [place] [facility] Qfuurwvkug[address] [place], [place] [address]Fg. Yilan VtkqfIGK091 103/wqCjoimz263-224Tsy [facility] [place] [facility] CenterComment on above: Performed By: #### CBC ####[facility] [place] [facility] [address]ctrpmyjnk[address] [place] [address]Dr.Yilan ChangRBC3.04 106/ulCritically low4.20-5.40The [facility] [place] [facility] CenterComment on above:Performed By: #### CBC ####[facility] [place] [facility] Rcypskrkeo[address] [place] [address]Dr.Yilan ChangWBC6.1 103/ul Normal4.0-11.0The [facility] [place] [facility] CenterComment on above:Performed By: #### CBC ####[facility] [place] [facility] [address]ng[address]qwhb[address] [place] [address]Dr. Yilan ChangCT STROKE HEAD WOon 13-30-6951HJ STROKE HEAD WONormalThe [facility] [place] [facility] CenterPROF CHEM 8 (BAS METB)on 19-66-0640Vvcjg gap [Moles/Vol]9.8 mmol/LNormal The [facility] [place] [facility] CenterComment on above:Performed By: #### VERONICA, HSTROPN ####[facility] [place] [facility] Lnsvtscoab[address] [place], [place] [id number]. Yilan ChangCalcium [Mass/Vol]8.4 mg/dLCritically low8.5-10.1The [facility] [place] [facility] CenterCombaraga county memorial hospital on above:Performed By: #### VERONICA, HSTROPN ####[facility] [place] [facility] Ymmpxexwna24[address] [place], [place]Dr. Yilan ChangChloride [Moles/Vol]99 mmol/OZfrenw87-482Ozi [facility] [place] [facility] CenterCombaraga county memorial hospital on above:Performed By: #### VERONICA, HSTROPN ####[facility] [place] [facility] [address]yl[address] [place] [address]Dr. Yilan ChangCO2 [Moles/Vol]28.3 mmol/LNormal 21.0-32.0The [facility] [place] [facility] CenterComment on above:Performed By: #### VERONICA, HSTROPN ####[facility] [place] [facility] [address] [place], [place]Dr. Yilan ChangCreatinine [Mass/Vol]1.40 mg/dLCritically high0.55-1.02The [facility] [place] [facility] CenterComment on above:Performed By: #### VERONICA, HSTROPN ####[facility] [place] [facility] Fxggcfjsmz8[address] [place], [place]Dr. Yilan ChangEGFR-AF EPSVJKQB46 mL/min/1.73l3Clqcwgisox low>=60The [facility] HospitalComment on above: Performed By: #### VERONICA, HSTROPN ####[facility] [place] [facility] Ubtyabnsry25[address] [place], [place]Dr. Yilan ChangEGFR-NON AF UZCEVVCE87 mL/min/1.73m2 Critically low>=60The [facility] [place] [facility] CenterComment on above:Performed By: #### VERONICA, HSTROPN ####[facility] [place] [facility] Ygwvgjgsec9[address] [place], [place] [address]Pu. Yilan ChangGlucose [Mass/Vol]88 mg/zNNvezea63-266Bca [facility] [place] [facility] Comment on above:Performed By: #### VERONICA, HSTROPN ####[facility] [place] [facility] Llmmosdojn7[address] [place], [place]Dr. Yilan ChangPotassium [Moles/Vol]5.1 mmol/LNormal3.5-5.1The [facility] [place] [facility] CenterComment on above: Performed By: #### VERONICA, HSTROPN ####[facility] [place] [facility] K[address]owoyihg79[address] [place], [place]Dr. Yilan ChangSodium [Moles/Vol]132 mmol/LCritically tdb035-737Mcv [facility] [place] [facility] CenterComment on above:Performed By: #### VERONICA, HSTROPN ####[facility] [place] [facility] Yolrnrmfom57[address] [place], [place]Dr. Yilan ChangUrea nitrogen [Mass/Vol]56.0 mg/dLCritically high7.0-18.0The [facility] [place] [facility] CenterComment on above:Performed By: #### BMP, HSTROPN ####[facility] [place] [facility] Oxkcstyiic6[address] [place], [place]Dr. Yilan ChangUrea nitrogen/Creatinine [Mass ratio]40.0 mg/mgNormalThe [facility] [place] [facility] CenterComment on above:Performed By: #### VERONICA HSTROPN ####[facility] [place] [facility] Fbhmsyywnv[address] [place], [place] [id number]. Yilan ChangTROPONIN, HIGH SENSITIVITYon 44-84-0490XQUMMZ4.9 pg/mLNormal4.0-51.3The [facility] [place] [facility] CenterComment on above: Result Comment: CUT-OFF POINTS HAVE BEEN ESTABLISHED BASED ON THE FOURTH UNIVERSAL DEFINITIONS OF MYOCARDIALINFARCTION. THE UPPER REFERENCE LIMIT (URL) OF TROPONIN, DEFINED THE 99TH PERCENTILE OFcTnI DISTRIBUTION IN A REFERENCE POPULATION, HAS BEEN CONFIRMED THE DECISION THRESHOLDFOR PA DIAGNOSIS. Performed By: #### VERONICA HSTROPN ####[facility] [place] [facility] Hhttxfsgby[address] [place], [place] [id number]. Yilan ChangXR CHEST 1 Von 63-76-2399QF CHEST 1 V NormalThe [facility] AUTO DIFFon 98-69-9659KBUL #0.0 103/ulNormal 0.0-0.1The [facility] [place] [facility] CenterComment on above:Performed By: #### CBC ####[facility] [place] [facility] Wzzdefxomg[address] [place], [place] [address]Dr.Yilan Tripathi Basophils/100 WBC (Bld)0.4 %Normal0.2-2.0The [facility] [place] [facility] CenterCombaraga [facility] memorial hospital on above: Performed By: #### CBC ####[facility] [place] [facility] Hbfgazvkuv[address] [place], [place] [address]Dr.Yilan ChangEO #0.4 103/ulNormal0.0-0.7The [facility] [place] [facility] CenterCombaraga county memorial hospital on above:Performed By: #### CBC ####[facility] [place] [facility] Eulpyclsqn9[address] [place], [place] [address]Dr.Yilan ChangEosinophils/100 WBC (Bld)4.6 %Normal0.9-7.0The [facility] [place] [facility] CenterCombaraga county memorial hospital on above:Performed By: #### CBC ####[facility] [place] [facility] Tqmoylusag[address] [place], [place] [address]Dr.Yilan ChangErythrocyte distribution width (RBC) [Ratio]15.8 %Critically high11.0-15.0The [facility] [place] [facility] CenterComment on above:Performed By: #### CBC ####[facility] [place] [facility] Rntcmsrbav8[address] [place], [place] [address]Dr. Airam ChangHematocrit (Bld) [Volume fraction]30.3 %Critically low36.0-48.0The [facility] HospitalComment on above:Performed By: #### CBC ####[facility] [place] [facility] Njkyfigmdg[address] [place], [place] [address]Dr.Selenaenil ChangHemoglobin (Bld) [Mass/Vol]9.3 g/dLCritically low12.0-16.0The [facility] [place] [facility] CenterComment on above:Performed By: #### CBC ####[facility] [place] [facility] Jkasfmruad2260[address] [place], [place] [address]Dr.Yineil ChangIG #0.03 10e3/ulNormal0.00-0.03The [facility] [place] [facility] CenterComment on above:Performed By: #### CBC ####[facility] [place] [facility] Najuchkzzw14[address] [place], [place] [address]Dr.Selenaneil ChangIG %0.4 %Normal 0.0-0.5The [facility] [place] [facility] CenterComment on above:Performed By: #### CBC ####[facility] [place] [facility] Yalltkvwry6790[address] [place], [place] [address]Dr.Selenaneil ChangLYMPH #2.0 103/ulNormal1.2-3.8The [facility] [place] [facility] CenterComment on above:Performed By: #### CBC ####[facility] [place] [facility] Wfftpzmxzb29[address] [place], [place] [address]Dr.Airam ChangLymphocytes/100 WBC (Bld)24.5 %Ykgjey77.5-60.0The [facility] [place] [facility] CenterComment on above:Performed By: #### CBC ####[facility] [place] [facility] Btfofumrcb7864[address] [place], [place] [address]Dr.Selenaneil ChangMANUAL DIFF REQ NONormalThe [facility] [place] [facility] CenterComment on above:Performed By: #### CBC ####[facility] [place] [facility] Fnpqjubwkg39[address] [place] [address]Dr. Airam DeuceH (RBC) [Entitic mass]28.9 iyTcshov50.7-34.0The [facility] [place] [facility] Comment on above:Performed By: #### CBC ####[facility] [place] [facility] Oxpkbsvkek304[address] [place], [place] [address]Dr.Airam TripathiHC (RBC) [Mass/Vol]30.7 g/dL Ixxiau14.9-35.2The [facility] [place] [facility] CenterComment on above:Performed By: #### CBC ####[facility] [place] [facility] Smuxrwegux[address] [place], [place] [address]Dr. Airam DeuceV (RBC) [Entitic vol]94.1 pJNddsxm76.0-99.0The [facility] [place] [facility] Comment on above:Performed By: #### CBC ####[facility] [place] [facility] Auwjopncsg77[address] [place], [place] [address]Dr.Airam TripathiMONO #0.7 103/ulNormal0.3-0.8 The [facility] [place] [facility] CenterComment on above:Performed By: #### CBC ####[facility] [place] [facility] Upvzxwonvx[address] [place], [place] [address]Dr.Airam Tripathi Monocytes/100 WBC (Bld)8.3 %Normal1.7-12.0The [facility] [place] [facility] CenterComment on above: Performed By: #### CBC ####[facility] [place] [facility] Lcfdmfijnh9[address] [place], [place] [address]Dr.Selenaneil DeuceNEUT #5.0 103/ulNormal1.4-6.5The [facility] [place] [facility] CenterComment on above:Performed By: #### CBC ####[facility] [place] [facility] Smvhvadmhh5[address] [place], [place] [address]Dr.Selenaneil TripathiNeutrophils/100 WBC (Bld)61.8 %Kamufq83.0-75.0The [facility] [place] [facility] CenterComment on above:Performed By: #### CBC ####[facility] [place] [facility] Ymbgqlorrn[address] [place], [place] [address]Dr.Airam TripathiPlatelet mean volume (Bld) [Entitic vol]9.4 fLCritically low 9.5-13.5The [facility] [place] [facility] CenterComment on above:Performed By: #### CBC ####[facility] [place] [facility] [address]xqkbxgynx[address] [place] [address]Dr. Selenaneil AppteFWT476 103/zdRxujqs599-158Cub [facility] [place] [facility] CenterComment on above: Performed By: #### CBC ####[facility] [place] [facility] Bcmhnudiqn64[address] [place] [address]Dr.Airam ChangRBC3.22 106/ulCritically low4.20-5.40The [facility] [place] [facility] CenterComment on above:Performed By: #### CBC ####[facility] [place] [facility] [address]gpvqdevkf64[address] [place], [place] [address]Dr.Selenaneil ChangWBC8.1 103/ul Normal4.0-11.0The [facility] [place] [facility] CenterComment on above:Performed By: #### CBC ####[facility] [place] [facility] Sxhoibcsqz[address] [place], [place] [address]Dr. Airam ChangPROF 14(COMP METB)on 17-18-8740Zxrqigj [Mass/Vol]3.2 g/dLCritically low3.4-5.0The [facility] [place] [facility] CenterComment on above:Performed By: #### CMP ####[facility] [place] [facility] Syvawcxrof[address] [place], [place] [address]Dr. Airam ChangAlbumin/Globulin [Mass ratio]1.0 {ratio}NormalParkview Health Bryan Hospital Comment on above:Performed By: #### CMP ####[facility] Rfjrmnoygd[address] [place], [place] [address]Dr.Airam ChangALP [Catalytic activity/Vol] 108 U/NVetzwi59-517Api [facility] CenterComment on above:Performed By: #### CMP ####[facility] Ceibrikrht[address] [place], [place] [address]Dr. Yilan ChangALT [Catalytic activity/Vol]30 U/XSqdueh28-73Abv [facility] Comment on above:Performed By: #### CMP ####[facility] Leumhmdztn[address] [place], [place] [address]Dr.Airam TripathiAnion gap [Moles/Vol]12.8 mmol/LNormalThe [facility] CenterComment on above:Performed By: #### CMP ####[facility] [address]chsbkted[address] [place] [id number]. Yilan ChangAST [Catalytic activity/Vol]33 U/ICermpo46-43Sdq [facility] Comment on above:Performed By: #### CMP ####[facility] Yrnomwpeah[address] [place] [address]Dr.Yilan ChangBilirubin [Mass/Vol]0.2 mg/dL Normal0.2-1.0The [facility] CenterComment on above:Performed By: #### CMP ####[facility] Wqrfqqjpnf[address] [place] [address]Dr. Yilan ChangCalcium [Mass/Vol]8.3 mg/dLCritically low8.5-10.1The [facility] CenterComment on above:Performed By: #### CMP ####[facility] Nvqphdkfmj35[address] [place], [place] [address]Dr.Yilan ChangChloride [Moles/Vol]99 mmol/ZLauvmk10-748Hjr [facility] CenterComment on above:Performed By: #### CMP ####[facility] Ponttxdcdo[address]25[address] [place], [place] [address]Dr.Yilan ChangCO2 [Moles/Vol]27.6 mmol/PZxdqrt69.0-32.0The [facility] CenterComment on above:Performed By: #### CMP ####[facility] Qvkhzvqjmw98[address] [place], [place] [address]Dr.Yilan ChangCreatinine [Mass/Vol]2.01 mg/dLCritically high0.55-1.02The [facility] CenterComment on above:Performed By: #### CMP ####[facility] Wrpsguwprq[address] [place], [place] [address]Dr.Yilan ChangEGFR-AF FHIXTGKK51 mL/min/1.73m2 Critically low>=60The [facility] CenterComment on above:Performed By: #### CMP ####[facility] Gyiqvmarmn7766[address] [place], [place] [address]Dr. Yilan ChangEGFR-NON AF OJNGVCUY84 mL/min/1.47c2Ehobamdluu low>=60The [facility] CenterComment on above:Performed By: #### CMP ####[facility] Xuverrvpwa6139[address] [place], [place] [address]Dr.Yilan ChangGlobulin (S) [Mass/Vol]3.2 g/dLNormSelect Medical OhioHealth Rehabilitation HospitalComment on above:Performed By: #### CMP ####[facility] Koauprfxdx3[address] [place], [place] [address]Dr.Yilan ChangGlucose [Mass/Vol]158 mg/dLCritically clsy99-229Yeo [facility] CenterComment on above:Performed By: #### CMP ####[facility] Sairlacuej[address] [place], [place] [address]Dr.Yilan ChangPotassium [Moles/Vol]5.4 mmol/LCritically high3.5-5.1The [facility] CenterComment on above:Performed By: #### CMP ####[facility] Pldtekxsgg6[address] [place], [place] [address]Dr.Yilan ChangProtein [Mass/Vol]6.4 g/dLNormal6.4-8.2 The [facility] HospitalComment on above:Performed By: #### CMP ####[facility] Njxahcqtoi8[address] [place], [place] [address]Dr.Yilan ChangSodium [Moles/Vol]134 mmol/LCritically qpo208-278Dqm [facility] CenterComment on above:Performed By: #### CMP ####[facility] Zkbrzzpntt8086[address] [place], [place] [address]Dr.Yilan ChangUrea nitrogen [Mass/Vol]52.0 mg/dL Critically high7.0-18.0The [facility] HospitalComment on above:Performed By: #### CMP ####[facility] Hfqkzrpced7035[address] [place], [place] [address]Dr. Yilan ChangUrea nitrogen/Creatinine [Mass ratio]25.9 mg/mgNoGood Samaritan HospitalComment on above:Performed By: #### CMP ####[facility] Egzmkcsptn86[address] [place], [place] [address]Dr.Yilan ChangOSMOLALITYon 12-31-0203Dguoainkoj [Osmolality]261 mosm/kgCritically dim593-904Awi [facility] CenterComment on above:Performed By: #### OSMO ####[facility] Ylwpafyvkq6[address] [place], [place] [address]Dr. Airam TripathiXR HIPS GUMARO 3_4V WO PELVISon 00-33-5590CH HIPS GUMARO 3_4V WO PELVISNormalThe [facility] XR KNEE LT 4V or >on 70-08-2490HA KNEE LT 4V or >NormalThe [facility] CenterBNP on 18-12-0833Pdtdyeunuyh peptide B (Bld) [Mass/Vol]1168.0 pg/mLCritically high <=900.0The [facility] CenterComment on above:Performed By: #### BNP, BMP ####[facility] Tlaqkcfcfo[address] [place], [place] [address]Dr. Airam TripathiCBC AUTO DIFFon 51-24-1607WMAR #0.0 103/ulNormal0.0-0.1The [facility] CenterComment on above:Performed By: #### CBC ####[facility] Sakgobwmli8479[address] [place], [place] [address]Dr.Airam TripathiBasophils/100 WBC (Bld)0.3 %Normal0.2-2.0The [facility] CenterComment on above:Performed By: #### CBC ####[facility] Tngsnbbryc0340[address] [place], [place] [address]Dr.Airam ChangEO #0.2 103/ulNormal0.0-0.7The [facility] CenterComment on above:Performed By: #### CBC ####[facility] Bdvmbucqju9715[address] [place], [place] [address]Dr.Airam ChangEosinophils/100 WBC (Bld)1.9 %Normal 0.9-7.0The [facility] CenterComment on above:Performed By: #### CBC ####[facility] Cyebydwpjw7397[address] [place], [place] [address]Dr.Airam Tripathi Erythrocyte distribution width (RBC) [Ratio]15.2 %Critically high11.0-15.0[facility] Bryan HospitalComment on above:Performed By: #### CBC ####[facility] Bnfaexndjj2937[address] [place], [place] [address]Dr.Airam TripathiHematocrit (Bld) [Volume fraction]34.3 %Critically low36.0-48.0The [facility] HospitalComment on above:Performed By: #### CBC ####[facility] Znumadcbqi1813[address] [place], [place] [address]Dr.Airam TripathiHemoglobin (Bld) [Mass/Vol]11.0 g/dL Critically low12.0-16.0The [facility] HospitalComment on above:Performed By: #### CBC ####[facility] Vydeprwfnu3850[address] [place], [place] [address]Dr. Airam TripathiIG #0.06 10e3/ulCritically high0.00-0.03The [facility] CenterComment on above:Performed By: #### CBC ####[facility] Akslnqfozi0620[address] [place], [place] [address]Dr.Airam TripathiIG %0.5 %Normal0.0-0.5The [facility] HospitalComment on above:Performed By: #### CBC ####[facility] Nxkbojjpel2255[address] [place], [place] [address]Dr.Airam TripathiLYMPH #2.3 103/ulNormal1.2-3.8The [facility] CenterComment on above:Performed By: #### CBC ####[facility] Zaxksikxdb0840[address] [place], [place] [address]Dr. Airam TripathiLymphocytes/100 WBC (Bld)20.4 %Critically low20.5-60.0The [facility] HospitalComment on above:Performed By: #### CBC ####[facility] Ybbtreanep[address] [place], [place] [address]Dr.Airam TripathiMANUAL DIFF REQ NONormalThe [facility] CenterComment on above:Performed By: #### CBC ####[facility] Pjggomfega8523[address] [place], [place] [address]Dr. Airam TripathiST. LUKE'S [facility] (RBC) [Entitic mass]28.7 qyWtfxgt94.7-34.0The [facility] Comment on above:Performed By: #### CBC ####[facility] Awlsdkqhmg9805[address] [place], [place] [address]Dr.Airam TripathiMCHC (RBC) [Mass/Vol]32.1 g/dL Bmwype71.9-35.2The [facility] CenterComment on above:Performed By: #### CBC ####[facility] Ndrscjyevd7564[address] [place], [place] [address]Dr. Airam TripathiMCV (RBC) [Entitic vol]89.6 mCUyvkmm06.0-99.0The [facility] Comment on above:Performed By: #### CBC ####[facility] Oqlvpilmhg[address] [place], [place] [address]Dr.Airam TripathiMONO #0.9 103/ulCritically high0.3-0.8The [facility] CenterComment on above:Performed By: #### CBC ####[facility] Wmmhfyfvif3612[address] [place], [place] [address]Dr. Airam TripathiMonocytes/100 WBC (Bld)8.3 %Normal1.7-12.0The [facility] Comment on above:Performed By: #### CBC ####[facility] Lzfgvprfbo8938[address] [place], [place] [address]Dr.Airam TripathiNEUT #7.8 103/ulCritically high1.4-6.5The [facility] CenterComment on above:Performed By: #### CBC ####[facility] Addurkuoun368[address] [place], [place] [address]Dr. Airam TripathiNeutrophils/100 WBC (Bld)68.6 %Mosduf76.0-75.0The [facility] Comment on above:Performed By: #### CBC ####[facility] Dmapqlsubl3457[address] [place], [place] [address]Dr.Airam TripathiPlatelet mean volume (Bld) [Entitic vol]8.9 fLCritically low9.5-13.5The [facility] CenterComment on above: Performed By: #### CBC ####[facility] X[address]znt[address] [place] [address]Dr.Yilan OuuxgHXG271 103/qkVvgusi714-749Jqv [facility] CenterComment on above:Performed By: #### CBC ####[facility] Psqeemuxob4678[address] [place], [place] [address]Dr.Yilan ChangRBC3.83 106/ul Critically low4.20-5.40The [facility] CenterComment on above:Performed By: #### CBC ####[facility] Iktnxjrmur377[address] [place], [place] [address]Dr. Yilan HqniyFSA67.4 103/ulCritically high4.0-11.0The [facility] CenterComment on above:Performed By: #### CBC ####[facility] Qkramigfeh3656[address] [place], [place] [address]Dr.Yilan ChangBASO #0.0 103/ulNormal0.0-0.1The [facility] CenterComment on above:Performed By: #### CBC ####[facility] Yoikdasjxw549[address] [place], [place] [address]Dr.Yilan ChangBasophils/100 WBC (Bld)0.2 %Normal0.2-2.0The [facility] CenterCombaraga county memorial hospital on above:Performed By: #### CBC ####[facility] Ijqhvzcbbn[address] [place], [place] [address]Dr.Yilan ChangEO #0.1 103/ulNormal0.0-0.7The [facility] CenterComment on above:Performed By: #### CBC ####[facility] Ivdkopdpfd0704[address] [place], [place] [address]Dr.Yilan ChangEosinophils/100 WBC (Bld)0.7 %Critically low0.9-7.0The [facility] CenterComment on above:Performed By: #### CBC ####[facility] Frwnlvssmy7239[address] [place], [place] [address]Dr. Yilan ChangErythrocyte distribution width (RBC) [Ratio]15.4 %Critically high 11.0-15.0The [facility] CenterComment on above:Performed By: #### CBC ####[facility] [address]dsyde[address] [place] [address]Dr. Selenaneil DeuceHematocrit (Bld) [Volume fraction]33.6 %Critically low36.0-48.0The [facility] CenterComment on above:Performed By: #### CBC ####[facility] Vqsiniutiy4[address] [place] [address]Dr.Airam TripathiHemoglobin (Bld) [Mass/Vol]10.9 g/dLCritically low12.0-16.0The [facility] HospitalComment on above:Performed By: #### CBC ####[facility] Rdcecuqqlm169[address] [place], [place] [address]Dr.Selenalan ChangIG #0.04 10e3/ulCritically high0.00-0.03 The [facility] CenterComment on above:Performed By: #### CBC ####[facility] Olowicinun1594[address] [place], [place] [address]Dr.Airam ChangIG % 0.5 %Normal0.0-0.5The [facility] CenterComment on above:Performed By: #### CBC ####[facility] Mctxqqtxnu7674[address] [place], [place] [address]Dr. Airam ChangLYMPH #1.1 103/ulCritically low1.2-3.8The [facility] CenterComment on above:Performed By: #### CBC ####[facility] Berqzschdq7090[address] [place], [place] [address]Dr.Airam TrpiathiLymphocytes/100 WBC (Bld)13.3 % Critically low20.5-60.0The [facility] CenterComment on above:Performed By: #### CBC ####[facility] Gsgonnbyzt7029[address] [place], [place] [address]Dr. Airam TripathiMANUAL DIFF REQNONormalThe [facility] CenterComment on above: Performed By: #### CBC ####[facility] Oillwyssix[address] [place], [place] [address]Dr.Airam TripathiMCH (RBC) [Entitic mass]29.1 pgNormal 26.7-34.0The [facility] CenterComment on above:Performed By: #### CBC ####[facility] Yxgbqsrhlt224[address] [place] [address]Dr. Selenaneil TripathiMCHC (RBC) [Mass/Vol]32.4 g/sWZfcrbz52.9-35.2The [facility] Comment on above:Performed By: #### CBC ####[facility] Nnlpbhfuqw6667[address] [place], [place] [address]Dr.Airam TripathiMCV (RBC) [Entitic vol]89.6 fL Bjlhnv65.0-99.0The [facility] HospitalComment on above:Performed By: #### CBC ####[facility] Yrxdzinsgb644[address] [place], [place] [address]Dr. Airam TripathiMONO #0.5 103/ulNormal0.3-0.8The [facility] HospitalComment on above: Performed By: #### CBC ####[facility] Luhqvxyshk8474[address] [place], [place] [address]Dr.Airam TripathiMonocytes/100 WBC (Bld)6.4 %Normal 1.7-12.0The [facility] CenterComment on above:Performed By: #### CBC ####[facility] Kfnadduhzc1273[address] [place], [place] [address]Dr. Airam TripathiNEUT #6.5 103/ulNormal1.4-6.5The [facility] CenterComment on above: Performed By: #### CBC ####[facility] Zaknptqwrf4[address] [place], [place] [address]Dr.Airam TirpathiNeutrophils/100 WBC (Bld)78.9 % Critically high43.0-75.0The [facility] HospitalComment on above:Performed By: #### CBC ####[facility] Kfsqzindps8558[address] [place], [place] [address]Dr. Airam TripathiPlatelet mean volume (Bld) [Entitic vol]9.4 fLCritically low9.5-13.5 The [facility] HospitalComment on above:Performed By: #### CBC ####[facility] Llivqaixrf6497[address] [place], [place] [address]Dr.Yilan LqxnxGEV178 103/mfXxymdz118-877Daa [facility] CenterComment on above:Performed By: #### CBC ####[facility] Yaumutrucv[address] [place] [address]Dr. Airam ChangRBC3.75 106/ulCritically low4.20-5.40The [facility] CenterComment on above:Performed By: #### CBC ####[facility] Ntjywjhhrs22[address] [place] [address]Dr.Airam ChangWBC8.3 103/ulNormal4.0-11.0The [facility] CenterComment on above:Performed By: #### CBC ####[facility] Wwdzlrdxac8[address] [place], [place] [address]Dr.Airam ChangCT HEAD WO CON on 35-34-1169DG HEAD WO CONNormalParkview Health Bryan HospitalPROF 14(COMP METB)on 76-98-4508Cilsmyi [Mass/Vol]3.2 g/dLCritically low3.4-5.0The [facility] Comment on above:Performed By: #### CMP ####[facility] Tlmlxaylwg5[address] [place], [place] [address]Dr.Airam ChangAlbumin/Globulin [Mass ratio] 0.9 {ratio}NormalThe [facility] CenterComment on above:Performed By: #### CMP ####[facility] Poiapceizd5656[address] [place], [place] [address]Dr. Airam TripathiALP [Catalytic activity/Vol]109 U/MHcsxlz03-020Rnu [facility] Comment on above:Performed By: #### CMP ####[facility] F[address]izddr[address] [place] [address]Dr.Airam ChangALT [Catalytic activity/Vol]25 U/RUhfoeh61-78Zjy [facility] CenterComment on above:Performed By: #### CMP ####[facility] Akojqazkmh[address] [place] [address]Dr. Airam TripathiAnion gap [Moles/Vol]10.9 mmol/LNormalThe [facility] CenterComment on above:Performed By: #### CMP ####[facility] Wpdvldqivr3880[address] [place], [place] [address]Dr.Yilan ChangAST [Catalytic activity/Vol]24 U/LNormal 15-37The [facility] on above:Performed By: #### CMP ####[facility] Fkbxnxggee7254[address] [place], [place] [address]Dr.Yilan Tripathi Bilirubin [Mass/Vol]0.3 mg/dLNormal0.2-1.0The [facility] CenterComment on above: Performed By: #### CMP ####[facility] Znbtrveivm[address] [place], [place] [address]Dr.Yilan ChangCalcium [Mass/Vol]8.6 mg/dLNormal 8.5-10.1The [facility] CenterCombaraga county memorial hospital on above:Performed By: #### CMP ####[facility] Uozwgcirys9780[address] [place], [place] [address]Dr. Yilan ChangChloride [Moles/Vol]95 mmol/LCritically wyt48-926Uem [facility] on above:Performed By: #### CMP ####[facility] Alqknzadvz656[address] [place], [place] [address]Dr.Yilan ChangCO2 [Moles/Vol] 27.8 mmol/RZvbywn24.0-32.0The [facility] CenterCombaraga county memorial hospital on above:Performed By: #### CMP ####[facility] Hvkpoeyvqd8190[address] [place], [place] [address]Dr.Yilan ChangCreatinine [Mass/Vol]1.07 mg/dLCritically high0.55-1.02The [facility] CenterCombaraga county memorial hospital on above:Performed By: #### CMP ####[facility] Vrfpfpzmbg164[address] [place], [place] [address]Dr.Yilan ChangEGFR-AF DJIBOUTIAN>60Normal>=60The [facility] on above:Performed By: #### CMP ####[facility] Wxdfbghqdq23[address] [place], [place] [address]Dr. Yilan ChangEGFR-NON AF TSHJELRW88 mL/min/1.15i9Xeyrmdocyy low>=60The [facility] Hospitalment on above:Performed By: #### CMP ####[facility] Cxreshmrrn[address] [place] [address]Dr.Yilan ChangGlobulin (S) [Mass/Vol]3.5 g/dLNormSelect Medical OhioHealth Rehabilitation HospitalComment on above:Performed By: #### CMP ####[facility] Omivczwowf[address] [place] [address]Dr.Yilan ChangGlucose [Mass/Vol]86 mg/eAWibqih41-721Vej [facility] Comment on above:Performed By: #### CMP ####[facility] Iuauotpllf8179[address] [place], [place] [address]Dr.Yilan ChangPotassium [Moles/Vol]4.7 mmol/LNormal3.5-5.1The [facility] CenterComment on above:Performed By: #### CMP ####[facility] Fdwpsbuvfx35[address] [place], [place] [address]Dr. Yilan ChangProtein [Mass/Vol]6.7 g/dLNormal6.4-8.2The [facility] CenterComment on above:Performed By: #### CMP ####[facility] Bnxnbibkya85[address] [place], [place] [address]Dr.Yilan ChangSodium [Moles/Vol]129 mmol/LCritically wfs773-849Shj [facility] CenterComment on above:Performed By: #### CMP ####[facility] Oojqfackkp8[address] [place], [place] [address]Dr. Yilan ChangUrea nitrogen [Mass/Vol]19.0 mg/dLCritically high7.0-18.0The [facility] CenterComment on above:Performed By: #### CMP ####[facility] Qgxfizkaow9[address] [place], [place] [address]Dr.Yilan ChangUrea nitrogen/Creatinine [Mass ratio]17.8 mg/mgNoGood Samaritan HospitalComment on above:Performed By: #### CMP ####[facility] Ssavvhfmap1874[address] [place], [place] [address]Dr.Yilan ChangPROF CHEM 8 (BAS METB)on 68-79-5536Hugoy gap [Moles/Vol]9.0 mmol/LNormalThe [facility] CenterComment on above:Performed By: #### BNP, BMP ####[facility] Yuonxzsluz[address] [place], [place] [address]Dr. Yilan ChangCalcium [Mass/Vol]8.5 mg/dLNormal8.5-10.1The [facility] HospitalComment on above:Performed By: #### BNP, BMP ####[facility] Acueijpxby[address] [place], [place] [address]Dr. Yilan ChangChloride [Moles/Vol]93 mmol/LCritically azm78-768Jkv [facility] CenterComment on above: Performed By: #### BNP, BMP ####[facility] Eukfzeevip5[address] [place], [place] [address]Dr. Yilan ChangCO2 [Moles/Vol]28.1 mmol/LNormal 21.0-32.0The [facility] CenterComment on above:Performed By: #### BNP, BMP ####[facility] Ryrmxcxvhi6[address] [place], [place] [address]Dr. Yilan ChangCreatinine [Mass/Vol]1.17 mg/dLCritically high0.55-1.02The [facility] CenterComment on above:Performed By: #### BNP, BMP ####[facility] Qxypfzwjnp[address] [place], [place] [address]Dr. Yilan ChangEGFR-AF WAJTCVWS88 mL/min/1.77x2Vwatntmoyn low>=60The [facility] CenterComment on above: Performed By: #### BNP, BMP ####[facility] Ztrnujtase[address] [place], [place] [address]Dr. Yilan ChangEGFR-NON AF LYWYBBRC76 mL/min/1.73m2 Critically low>=60The [facility] CenterComment on above:Performed By: #### BNP, BMP ####[facility] Bkweyhfsea[address] [place], [place] [address]Dr. Yilan ChangGlucose [Mass/Vol]107 mg/dLCritically ksqa80-586Srd [facility] CenterComment on above:Performed By: #### BNP, BMP ####[facility] [address]qsvuwkjbv[address] [place] [address]Dr. Airam ChangPotassium [Moles/Vol]4.1 mmol/LNormal3.5-5.1The [facility] CenterComment on above: Performed By: #### BNP, BMP ####[facility] [address]wt[address] [place] [address]Dr. Yilan ChangSodium [Moles/Vol]126 mmol/LCritically tfn771-968Zbv [facility] CenterComment on above:Performed By: #### BNP, BMP ####[facility] [address]ztadyaqax[address] [place] [address]Dr. Yilan ChangUrea nitrogen [Mass/Vol]20.0 mg/dLCritically high7.0-18.0The [facility] CenterComment on above:Performed By: #### BNP, BMP ####[facility] [address]tzfyzahrc[address] [place] [address]Dr. Yilan ChangUrea nitrogen/Creatinine [Mass ratio]17.1 mg/mgNormalThe [facility] CenterComment on above:Performed By: #### BNP, BMP ####[facility] [address]bxxpgpsd68[address] [place] [address]Dr. Yineil ChangXR CHEST 1 Von 74-87-7207EH CHEST 1 V NormalThe [facility] CenterActivated partial thromboplastin time (aPTT) in platelet poor plasma by coagulation aOrdered By: Favian Helm on 83-72-9126dXPJ Coag (PPP) [Time]31.7 s25.1-36.5FClinton Memorial HospitalAlanine aminotransferase [Enzymatic activity/volume] in Serum or PlasmaOrdered By: Favian Helm on 29-56-8051GSC [Catalytic activity/Vol]14 U/L7-52Pomerene HospitalAlbumin [Mass/volume] in Serum or Plasma by Bromocresol green (BCG) dye binding methoOrdered By: Favian Helm on 30-34-2470Zpviiry BCG dye [Mass/Vol]3.6 g/dL3.5-5.7FClinton Memorial HospitalAlkaline phosphatase [Enzymatic activity/volume] in Serum or PlasmaOrdered By: Favian Helm on 29-56-0260VKI [Catalytic activity/Vol]84 U/H71-603VqjdubedkPomerene HospitalAspartate aminotransferase [Enzymatic activity/volume] in Serum or PlasmaOrdered By: Favian Helm on 14-87-3041GTM [Catalytic activity/Vol]21 U/L 13-39Pomerene HospitalB-Type Natriuretic Peptideon 10-28-2022 Natriuretic peptide B (Bld) [Mass/Vol]551.0 pg/mLHigh5-100[facility] HospitalComment on above:Result Comment: PERFORMED BY: [place] [address] PATHOLOGIST [employer] GAVIN M.D.Performed By: #### XPKP70PBJ, MG, BMP, JOSE, FE and TIBC, RETIC #### [place] [address] USABasophils Auto (Bld) [#/Vol]Ordered By: Favian Helm on 11-58-4196Ycsuhqudw (Bld) [#/Vol]0.0 10*3/uL0.0-0.2FClinton Memorial HospitalBasophils/100 WBC Auto (Bld)Ordered By: Favian Helm on 10-28-2022 Basophils/100 WBC (Bld)0.4 %.Pomerene HospitalBilirubin.total [Mass/volume] in Serum or PlasmaOrdered By: Favian Helm on 76-75-7931Xehgrflnz [Mass/Vol]0.3 mg/dL0.3-1.0P[facility] HospitalCT head/brain wo con on 07-93-3972FF head/brain wo [facility] [place] [address] [place] Scan Report Signed Patient: Mabel Moser MR#: [id number] : 1960 Acct:[id number] Age/Sex: 62 / F ADM Date: 10/28/22 Loc: ER Room: Type: [facility] ER Attending Dr: Copies to: Favian [...] Baljinder Ball M.D.10/28/2022 7:46 PM Dictation Location: [place] [address] Transcribed By: [facility] 10/28/221945 Dictated By: Baljinder Ball DO 10/28/221934 Signed By: 10/28/221945NoKindred Hospital LimaCalcium [Mass/volume] in Serum or PlasmaOrdered By: Favian Helm on 93-40-9914Zvykvam [Mass/Vol]8.2 mg/dL 8.6-10.3FClinton Memorial HospitalCarbon dioxide, total [Moles/volume] in Serum or PlasmaOrdered By: Favian Helm on 79-34-5416NT5 [Moles/Vol]25.7 mmol/L 21.0-31.0Pomerene HospitalChloride [Moles/volume] in Serum or PlasmaOrdered By: Favian Helm on 77-42-3989Snbgwude [Moles/Vol]98 mmol/L98-107 [facility]omerene HospitalComplete Blood Count Auto Diffon 10-28-2022 Basophils (Bld) [#/Vol]0.0 10*3/uLNormal0.0-0.2FClinton Memorial Hospital Comment on above:Result Comment: PERFORMED BY: [facility] [address] [place] [address] PATHOLOGIST [employer] T[employer] GAVIN M.D.Performed By: #### [id number], MG, BMP, JOSE, FE and TIBC, RETIC #### [place] [address] USABasophils/100 WBC (Bld)0.4 %Normal.Pomerene HospitalComment on above:Performed By: #### ATHE86ZDS, MG, BMP, JOSE, FE and TIBC, RETIC #### [place] [address] USAEosinophils (Bld) [#/Vol]0.1 10*3/uLNormal0.0-0.45 [facility] HospitalCombaraga county memorial hospital on above:Performed By: #### DTRB56QWR, MG, BMP, JOSE, FE and TIBC, RETIC #### [place] [address] USAEosinophils/100 WBC (Bld)1.0 %Normal.[facility]omerene HospitalComment on above:Performed By: #### CKQA08QPB, MG, BMP, JOSE, FE and TIBC, RETIC #### [place] [address] USAErythrocyte distribution width (RBC) [Ratio]16.5 %High 11.9-15.3FClinton Memorial HospitalComment on above:Performed By: #### HYJK41MCG, MG, BMP, JOSE, FE and TIBC, RETIC #### [place] [address] USAHematocrit (Bld) [Volume fraction]29.9 %Low34.0-46.4 [facility]rene HospitalComment on above:Performed By: #### RQTS23MGT, MG, BMP, JOSE, FE and TIBC, RETIC #### [place] [address] USAHemoglobin (Bld) [Mass/Vol]9.6 g/dLLow11.8-15.4FClinton Memorial HospitalComment on above:Performed By: #### RSQS50LBE, MG, BMP, JOSE, FE and TIBC, RETIC #### [facility] [address] [place] [address] USALymphocytes (Bld) [#/Vol]0.8 10*3/uLLow1.00-4.8Pomerene HospitalComment on above:Performed By: #### YTBK76GNO, MG, BMP, JOSE, FE and TIBC, RETIC #### [facility] [address] [place] [address] USALymphocytes/100 WBC (Bld)12.8 %Normal.Pomerene HospitalComment on above:Performed By: #### FRXM04SLL, MG, BMP, JOSE, FE and TIBC, RETIC #### [place] [address] USAMCH (RBC) [Entitic mass]28.3 mnJasprr57.7-34.3FClinton Memorial HospitalComment on above:Performed By: #### VSCN24PGP, MG, BMP, JOSE, FE and TIBC, RETIC #### [place] [address] USAMCV (RBC) [Entitic vol]88.3 mLCzxlrt98-137NnzalmxxzPomerene HospitalComment on above:Performed By: #### UIGV53NVL, MG, BMP, JOSE, FE and TIBC, RETIC #### [place] [address] USAMean Corpuscular HGB Conc32.0 g/cADvxejq39.0-35.0Pomerene HospitalComment on above:Performed By: #### XJEK21HIG, MG, BMP, JOSE, FE and TIBC, RETIC #### [place] [address] USAMonocytes (Bld) [#/Vol]0.2 10*3/uLNormal0.0-0.8Pomerene HospitalComment on above:Performed By: #### YTSJ65EDF, MG, BMP, JOSE, FE and TIBC, RETIC #### [facility] [address] [place] [address] USAMonocytes/100 WBC (Bld)17.29 %Normal0.00-20.00Pomerene HospitalComment on above:Performed By: #### HZWW12DOB, MG, BMP, JOSE, FE and TIBC, RETIC #### [place] [address] USAMonocytes/100 WBC (Bld)2.5 %Normal.Pomerene HospitalComment on above:Performed By: #### ADQH47ZCB, MG, BMP, JOSE, FE and TIBC, RETIC #### [place] [address] USANeutrophils (Bld) [#/Vol]5.5 10*3/uLNormal1.8-7.7FClinton Memorial HospitalComment on above:Performed By: #### SYDP07NYV, MG, BMP, JOSE, FE and TIBC, RETIC #### [place] [address] USANeutrophils/100 WBC (Bld)83.3 %Normal.[facility] HospitalCombaraga county memorial hospital on above:Performed By: #### EPVP72BWL, MG, BMP, JOSE, FE and TIBC, RETIC #### [place] [address] USANRBC%0.0 /100{WBC}Normal0-0.5FClinton Memorial HospitalCombaraga county memorial hospital on above:Performed By: #### CMEI32GXN, MG, BMP, JOSE, FE and TIBC, RETIC #### [place] [address] USAPlatelet mean volume (Bld) [Entitic vol]7.3 fLNormal 6.3-10.7FClinton Memorial HospitalCombaraga county memorial hospital on above:Performed By: #### RTZY70HJA, MG, BMP, JOSE, FE and TIBC, RETIC #### [place] [address] USAPlatelets (Bld) [#/Vol]260 10*3/hYZxvihf258-349NwednejfvPomerene HospitalComment on above:Performed By: #### BILA45ZSY, MG, BMP, JOSE, FE and TIBC, RETIC #### [facility] [address] [place] [address] USARBC (Bld) [#/Vol]3.38 10*6/uLLow3.60-5.00Pomerene HospitalComment on above:Performed By: #### EYMM68YML, MG, BMP, JOSE, FE and TIBC, RETIC #### [place] [address] USAWBC (Bld) [#/Vol]6.6 10*3/uLNormal3.8-11.6FClinton Memorial HospitalComment on above:Performed By: #### QRKS29ZMN, MG, BMP, JOSE, FE and TIBC, RETIC #### [place] [address] USAComprehensive Metabolic Panelon 00-85-7460Lebbdzm [Mass/Vol]3.6 g/dLNormal3.5-5.7FClinton Memorial HospitalComment on above:Performed By: #### MUFV55WVV, MG, BMP, JOSE, FE and TIBC, RETIC #### [place] [address] USAAlbumin/Globulin [Mass ratio]1.6 {ratio}NormalPomerene HospitalComment on above:Performed By: #### HOZI84KQV, MG, BMP, JOSE, FE and TIBC, RETIC #### [facility] [address] [place] [address] USAALP [Catalytic activity/Vol]84 U/YSblnto48-133MjxqbuhkePomerene HospitalComment on above:Performed By: #### FFEH88NWK, MG, BMP, JOSE, FE and TIBC, RETIC #### [facility] [address] [place] [address] USAALT [Catalytic activity/Vol]14 U/LNormal7-52Pomerene HospitalComment on above:Performed By: #### KDBQ40STY, MG, BMP, JOSE, FE and TIBC, RETIC #### [place] [address] USAAnion gap [Moles/Vol]10.0 mmol/LNormal6.0-15.0Pomerene HospitalComment on above:Performed By: #### LGCC13FXC, MG, BMP, JOSE, FE and TIBC, RETIC #### [place] [address] USAAST [Catalytic activity/Vol]21 U/AXsngmy53-03GvbnpaexePomerene HospitalComment on above:Performed By: #### KQPR94VHT, MG, BMP, JOSE, FE and TIBC, RETIC #### [place] [address] USABilirubin [Mass/Vol]0.3 mg/dLNormal0.3-1.0Pomerene HospitalComment on above:Performed By: #### VIRK17GGH, MG, BMP, JOSE, FE and TIBC, RETIC #### [place] [address] USACalcium [Mass/Vol]8.2 mg/dLLow8.6-10.3FClinton Memorial HospitalComment on above:Performed By: #### QVNS26KZC, MG, BMP, JOSE, FE and TIBC, RETIC #### [place] [address] USAChloride [Moles/Vol]98 mmol/VHkcnhm90-828UryudmfnqPomerene HospitalComment on above:Performed By: #### JWPE62WWH, MG, BMP, JOSE, FE and TIBC, RETIC #### [place] [address] USACO2 [Moles/Vol]25.7 mmol/XZaudrr92.0-31.0Pomerene HospitalComment on above:Performed By: #### LECU10JLA, MG, BMP, JOSE, FE and TIBC, RETIC #### [place] [address] USACreatinine [Mass/Vol]1.23 mg/dLHigh0.60-1.20Pomerene HospitalComment on above:Performed By: #### AHPB80PJI, MG, BMP, JOSE, FE and TIBC, RETIC #### [facility] [address] [place] [address] USACreatinine Clr Calc Texroxcr88.79NoKindred Hospital LimaComment on above:Performed By: #### URJT44NTL, MG, BMP, JOSE, FE and TIBC, RETIC #### [facility] [address] [place] [address] USAGFR/1.73 sq M.predicted MDRD (S/P/Bld) [Vol rate/Area] 50.309 mL/min/{1.73_m2}[facility] Hamilton HospitalComment on above: Performed By: #### PRUE94VSP, MG, BMP, JOSE, FE and TIBC, RETIC #### [facility] [address] [place] [address] USAGlobulin (S) [Mass/Vol]2.3 g/dLNoKindred Hospital LimaComment on above:Performed By: #### PIHL90CBE, MG, BMP, JOSE, FE and TIBC, RETIC #### [facility] [address] [place] [address] USAGlucose [Mass/Vol]98 mg/gPOrklbl28-540FehvwyfmwPomerene HospitalComment on above:Result Comment: Random Glucose Reference Range is dependent on time and content of last meal. Glucose of more than 200 mg/dL in a nonstressed, ambulatory subject supports the diagnosis of Diabetes Mellitus. ADA recommended reference rangePerformed By: #### OUAQ57VXU, MG, BMP, JOSE, FE and TIBC, RETIC #### [facility] [address] [place] [address] USAPotassium [Moles/Vol]4.7 mmol/LNormal3.5-5.1FClinton Memorial HospitalComment on above:Performed By: #### OYIG75ZXJ, MG, BMP, JOSE, FE and TIBC, RETIC #### [facility] [address] [place] [address] USAProtein [Mass/Vol]5.9 g/dLLow6.4-8.9Pomerene HospitalComment on above:Performed By: #### SZAW73ZOI, MG, BMP, JOSE, FE and TIBC, RETIC #### [place] [address] USASodium [Moles/Vol]129 mmol/OTqj903-804UdxhqgxvlPomerene HospitalComment on above:Performed By: #### HWZM18PIY, MG, BMP, JOSE, FE and TIBC, RETIC #### [place] [address] USAUrea nitrogen [Mass/Vol]36 mg/dLHigh7-25Pomerene HospitalComment on above:Performed By: #### YUQF75RQX, MG, BMP, JOSE, FE and TIBC, RETIC #### [place] [address] USACreatine Kinaseon 35-62-6030ND [Catalytic activity/Vol]45 U/HYhgcyn85-533WvrbvwicsPomerene HospitalComment on above:Performed By: #### PTBQ07VAQ, MG, BMP, JOSE, FE and TIBC, RETIC #### [place] [address] USACreatine kinase [Enzymatic activity/volume] in Serum or PlasmaOrdered By: Favian Helm on 00-93-8705CA [Catalytic activity/Vol]45 U/L [facility] HospitalCreatinine [Mass/volume] in Serum or PlasmaOrdered By: Favian Helm on 04-12-5639Vrluijsxsn [Mass/Vol]1.23 mg/dL 0.60-1.20Pomerene HospitalECG 12 lead ECGon 14-14-7170WIW 12 lead ECGMET[facility] [place] [address] [place] [address] Electrocardiograph Report Signed Patient: Mabel Moser MR#: [id number] : 1960 Acct:[id number] Age/Sex: 62 / F ADM Date: 10/28/22 Loc: ER Room: Type: [facility] ER Attending Dr: Ordering Provider: [...] normal variant Confirmed by Chris MAURO DO ([id number]) on 10/28/2022 8:40:44 PM Referred By: Electronically Signed By:Chris MAURO DO Transcribed By: MUS Signed By Chris Mauro DO 0 10/28/222039NormalPomerene HospitalEosinophils Auto (Bld) [#/Vol]Ordered By: Favian Helm on 01-25-3710Itcukwbyrlb (Bld) [#/Vol]0.1 10*3/uL0.0-0.45Pomerene HospitalEosinophils/100 WBC Auto (Bld) Ordered By: Favian Helm on 00-11-8038Wcdhfygrvzb/100 WBC (Bld)1.0 %.Pomerene HospitalErythrocyte distribution width Auto (RBC) [Ratio]Ordered By: Favian Helm on 82-74-9443Bwnnesvhidc distribution width (RBC) [Ratio]16.5 % 11.9-15.3FClinton Memorial HospitalGlobulin Calc (S) [Mass/Vol]Ordered By: Favian Helm on 19-54-6245Bhbnmzwn (S) [Mass/Vol]2.3 g/dLPomerene HospitalGlucose [Mass/volume] in Serum or PlasmaOrdered By: Favian Helm on 30-48-4343Fornbxd [Mass/Vol]98 mg/oS06-124SuukudjmtPomerene Hospital Comment on above:ADA recommended reference rangeRandom Glucose Reference Range is dependent on time and content of last meal. Glucose of more than 200 mg/dL in a nonstressed, ambulatory subject supports the diagnosisof Diabetes Mellitus. Hematocrit Auto (Bld) [Volume fraction]Ordered By: Favian Helm on 10-28-2022 Hematocrit (Bld) [Volume fraction]29.9 %34.0-46.4FClinton Memorial HospitalHemoglobin [Mass/volume] in BloodOrdered By: Favian Helm on 10-28-2022 Hemoglobin (Bld) [Mass/Vol]9.6 g/dL11.8-15.4FClinton Memorial Hospital Laboratory - CoagulationOrdered By: Favian Helm on 74-19-7307BY Coag (PPP) [Time]11.0 s9.0-12.9Pomerene HospitalLeukocytes [#/volume] corrected for nucleated erythrocytes in Blood by Automated counOrdered By: Favian Helm on 25-34-0720FZV corrected for nucl RBC Auto (Bld) [#/Vol]6.6 10*3/uL3.8-11.6FClinton Memorial HospitalLymphocytes Auto (Bld) [#/Vol] Ordered By: Favian Helm on 05-50-4234Pujwporglld (Bld) [#/Vol]0.8 10*3/uL 1.00-4.8Pomerene HospitalLymphocytes/100 WBC Auto (Bld)Ordered By: Favian Helm on 37-12-5845Uhzmkwlwtzj/100 WBC (Bld)12.8 %.[facility] Auto (RBC) [Entitic mass]Ordered By: Favian Helm on 89-02-6841ZBB (RBC) [Entitic mass]28.3 pg24.7-34.3FFlower HospitalHC Auto (RBC) [Mass/Vol]Ordered By: Favian Helm on 00-20-3088GKJE (RBC) [Mass/Vol]32.0 g/dL32.0-35.0Pomerene HospitalMCV Auto (RBC) [Entitic vol]Ordered By: Favian Helm on 69-33-7541EHK (RBC) [Entitic vol]88.3 fF66-779SdnythtkkPomerene HospitalMagnesiumon 72-26-0272Jsguzdzye [Mass/Vol]1.9 mg/dLNormal1.9-2.7FClinton Memorial HospitalComment on above:Result Comment: PERFORMED BY: [facility] [address] [place] [address] PATHOLOGIST [employer] T[employer]NER GAVIN M.D.Performed By: #### ZLJR30INC, MG, BMP, JOSE, FE and TIBC, RETIC #### [facility] [address] [place] [id number] USAMagnesium [Mass/volume] in Serum or PlasmaOrdered By: Favian Helm on 42-01-4271Njojhisuo [Mass/Vol]1.9 mg/dL1.9-2.7FClinton Memorial HospitalMonocyte distribution width [Entitic volume] in Blood by AutomatedOrdered By: Favian Helm on 61-55-2849Gtfktyxw distribution width Auto (Bld) [Entitic vol]17.29 %0.00-20.00Pomerene HospitalMonocytes Auto (Bld) [#/Vol]Ordered By: Favian Helm on 49-62-2715Fnpowqqwl (Bld) [#/Vol] 0.2 10*3/uL0.0-0.8Pomerene HospitalMonocytes/100 WBC Auto (Bld) Ordered By: Favian Helm on 82-00-0432Ejsovbssi/100 WBC (Bld)2.5 %.Pomerene HospitalNatriuretic peptide B [Mass/Vol]Ordered By: Favian Helm on 85-65-4638Tuvmfgpnrut peptide B (Bld) [Mass/Vol]551.0 pg/mL5-100Pomerene HospitalNeutrophils Auto (Bld) [#/Vol]Ordered By: Favian Helm on 32-09-5710Rdvqnrfrbep (Bld) [#/Vol]5.5 10*3/uL1.8-7.7FClinton Memorial HospitalNeutrophils/100 WBC Auto (Bld)Ordered By: Favian Helm on 10-28-2022 Neutrophils/100 WBC (Bld)83.3 %.Pomerene HospitalNo Panel InformationOrdered By: Favian Helm on 59-07-9880Qpwlnhrzx GFR (CKD-EPI)50.309 mL/MinPomerene HospitalPharmacy Creatinine Clearance (Chem48.79 Pome[facility] HospitalNucleated erythrocytes [Presence] in Blood by Automated countOrdered By: Favian Helm on 17-75-0272Atpmvsmso RBC Auto Ql (Bld) 0.0 /100{WBC}0-0.5FClinton Memorial HospitalPartial Thromboplastin Timeon 71-50-9065jMPW Coag (Bld) [Time]31.7 lHedgut87.1-36.5FClinton Memorial HospitalComment on above:Result Comment: PERFORMED BY: [place] [address] PATHOLOGIST [employer] GAVIN M.D.Performed By: #### KBAO70DXC, MG, BMP, JOSE, FE and TIBC, RETIC #### [place] [address] USAPlatelet mean volume Auto (Bld) [Entitic vol]Ordered By: Favian Helm on 00-33-6677Pwhekanj mean volume (Bld) [Entitic vol]7.3 fL6.3-10.7 Pomerene HospitalPlatelet poor plasma international normalized ratio (INR) by coagulation assay (relatOrdered By: Favian Helm on 56-44-1071MON Coag (PPP) [Relative time]1.0 {INR}Pomerene HospitalComment on above:INR Therapeutic Range A) Pre- and Peroperative OAT started two weeks before surgery. NOT HIP SURGERY: 1.5 - 2.5 HIP SURGERY: 2 - 3B) Primary and secondary prevention of venous THROMBOSIS: 2 - 3C) Active venous thrombosis, pulmonary embolismand prevention of recurrent venous thrombosis: 2 - 3D) Preve ntion of arterial thromboembolismincluding patients with mechanical heart valves: 3 - 4.5Platelets Auto (Bld) [#/Vol]Ordered By: Favian Helm on 04-22-6400Bvoimosvs (Bld) [#/Vol]260 10*3/lD199-187TcaeglokiPomerene HospitalPotassium [Moles/volume] in Serum or PlasmaOrdered By: Favian Helm on 68-11-7199Xfmgtxeng [Moles/Vol]4.7 mmol/L3.5-5.1FClinton Memorial HospitalProtein [Mass/volume] in Serum or PlasmaOrdered By: Favian Helm on 17-33-9836Iqkrkcl [Mass/Vol]5.9 g/dL6.4-8.9[facility] Prothrombin Time INRon 45-78-3121FWL Coag (PPP) [Relative time]1.0 {INR}Normal Pomerene HospitalComment on above:Result Comment: INR Therapeutic Range A) Pre- and [...] patients with mechanical heart valves: 3 - 4.5Performed By: #### HYNR71WOE, MG, BMP, JOSE, FE and TIBC, RETIC #### [facility] [address] [place] [address] USAPT Coag (PPP) [Time]11.0 sNormal9.0-12.9Pomerene HospitalComment on above:Performed By: #### OBOJ38CKN, MG, BMP, JOSE, FE and TIBC, RETIC #### [facility] [address] [place] [address] USARBC Auto (Bld) [#/Vol]Ordered By: Favian Helm on 37-56-0462OLW (Bld) [#/Vol]3.38 10*6/uL3.60-5.00[facility] Clinic Foundationerum or plasma albumin/globulin mass ratioOrdered By: Favian Helm on 10-39-6933Cfhjthd/Globulin [Mass ratio]1.6 {ratio}[facility] Foundationerum or plasma anion gap determinationOrdered By: Favian Helm on 49-46-0692Jkppv gap [Moles/Vol]10.0 mmol/L6.0-15.0[facility] Clinic Foundationodium [Moles/volume] in Serum or PlasmaOrdered By: Favian Helm on 25-16-9613Dqnucy [Moles/Vol]129 mmol/P043-230HoohijlprPomerene Hospital Troponin I High Sensitivityon 09-06-8068Wtaxhtfc I High Sensitivity5.8 pg/mL Normal0.0-15.0Pomerene HospitalComment on above:Result Comment: PERFORMED BY: [address] [address] PATHOLOGIST [employer] GAVIN M.D.Performed By: #### FETX26NVS, MG, BMP, JOSE, FE and TIBC, RETIC #### [facility] [address] [place] [address] USATroponin I.cardiac [Mass/volume] in Serum or Plasma by Detection limit <= 0.01 ng/Ordered By: Favian Helm on 23-76-7804Owofhkkn I.cardiac DL <= 0.01 ng/mL [Mass/Vol]5.8 pg/mL0.0-15.0Pomerene HospitalUrea nitrogen [Mass/volume] in Serum or PlasmaOrdered By: Favian Helm on 66-25-7405Yzod nitrogen [Mass/Vol]36 mg/dL7-25[facility] WBC Auto (Bld) [#/Vol]Ordered By: Favian Helm on 77-28-5013FWH (Bld) [#/Vol]6.6 10*3/uL3.8-11.6FClinton Memorial HospitalXR chest 2V*on 00-64-2731CB chest 2V*[facility] Main [place] [address] [place] [address] XRay Report Signed Patient: Mabel Moser MR#: [id number] : 1960 Acct:[id number] Age/Sex: 62 / F ADM Date: 10/28/22 Loc: ER Room: Type: [facility] ER Attending Dr: Copies to: Favian Helm PA-C Ordering Provider: Favian Helm PA-C Date of Service: 10/28/22 XR/XR chest 2V*: Shortness of Breath/Dyspnea Plain film chest 2 view HISTORY: Fluid overload. Shortness of breath. Headache. COMPARISON: 08/31/2018 FINDINGS: SUPPORT DEVICES: None POSTSURGICAL CHANGES: Right Awnzvk-w-Bstl intact with tip overlying the distal SVC. HEART: Within normal limits PULMONARY RAI: Within normal limits MEDIASTINUM: Unremarkable LUNGS AND PLEURA: No acute lung process, pleural effusion or pneumothorax identified. BONY STRUCTURES: Intact ADDITIONAL FINDINGS None XR/XR chest 2V* IMPRESSION: No acute process. Impression dictated by: Baljinder Ball M.D.10/28/2022 7:50 PM Dictation Location: [place] [address] Transcribed By: [facility] 10/28/221949 Dictated By: Baljinder Ball DO 10/28/221945 Signed By: 10/28/221949Fort Hamilton HospitalBNPon 20-38-1198Efcxbjgozdg peptide B (Bld) [Mass/Vol]2657.0 pg/mLCritically high<=900.0The [facility] Medical CenterComment on above:Performed By: #### CMP, BNP ####[facility] [address] [place], [place] [address]Dr. Yilan ChangCBC AUTO DIFF on 02-17-6285DEWQ #0.0 103/ulNormal0.0-0.1The [facility] CenterComment on above: Performed By: #### CBC ####[facility] [address] [place], [place] [address]Dr.Yilan ChangBasophils/100 WBC (Bld)0.5 %Normal 0.2-2.0The [facility] CenterComment on above:Performed By: #### CBC ####[facility] [address] [place], [place] [address]Dr.Yilan ChangEO # 0.3 103/ulNormal0.0-0.7The [facility] CenterComment on above:Performed By: #### CBC ####[facility] [address] [place], [place] [address]Dr. Yilan ChangEosinophils/100 WBC (Bld)4.8 %Normal0.9-7.0[facility] Comment on above:Performed By: #### CBC ####[facility] [address] [place] [address]Dr.Selenaneil ChangErythrocyte distribution width (RBC) [Ratio]15.5 %Critically high11.0-15.0The [facility] CenterComment on above:Performed By: #### CBC ####[facility] [address] [place], [place] [address]Dr.Selenaneil ChangHematocrit (Bld) [Volume fraction]27.7 % Critically low36.0-48.0The Munger HospitalComment on above:Performed By: #### CBC ####[facility] [address] [place], [place] [address]Dr. Airam ChangHemoglobin (Bld) [Mass/Vol]8.8 g/dLCritically low12.0-16.0The [facility] CenterComment on above:Performed By: #### CBC ####[facility] [address] [place], [place] [address]Dr.Airam ChangIG #0.03 10e3/ulNormal0.00-0.03The [facility] CenterComment on above:Performed By: #### CBC ####[facility] [address] [place], [place] [address]Dr. Airam ChangIG %0.5 %Normal0.0-0.5The [facility] CenterComment on above:Performed By: #### CBC ####[facility] [address] [place], [place] [address]Dr.Airam ChangLYMPH #1.6 103/ulNormal1.2-3.8The [facility] Comment on above:Performed By: #### CBC ####[facility] [address] [place], [place] [address]Dr.Airam TripathiLymphocytes/100 WBC (Bld)25.5 %Jpuxbq94.5-60.0The [facility] CenterComment on above:Performed By: #### CBC ####[facility] [address] [place], [place] [address]Dr. Selenalan DeuceMANUAL DIFF REQNONormalThe [facility] Medical CenterComment on above: Performed By: #### CBC ####[facility] [address] [place] [address]Dr.Airam TripathiH (RBC) [Entitic mass]29.0 pgNormal 26.7-34.0The [facility] CenterComment on above:Performed By: #### CBC ####[facility] [address] [place] [address]Dr. Airam TripathiHC (RBC) [Mass/Vol]31.8 g/dEAglszu26.9-35.2The [facility] Comment on above:Performed By: #### CBC ####[facility] [address] [place] [address]Dr.Airam DeuceMCV (RBC) [Entitic vol]91.4 fL Xwldez94.0-99.0The [facility] CenterComment on above:Performed By: #### CBC ####[facility] [address] [place], [place] [address]Dr. Airam DeuceMONO #0.5 103/ulNormal0.3-0.8The [facility] CenterComment on above: Performed By: #### CBC ####[facility] [address]spyductpu[address] [place], [place] [address]Dr.Airam DeuceMonocytes/100 WBC (Bld)7.5 %Normal 1.7-12.0The [facility] CenterComment on above:Performed By: #### CBC ####[facility] K[address]mzf[address] [place], [place] [address]Dr. Airam DeuceNEUT #3.9 103/ulNormal1.4-6.5The [facility] CenterComment on above: Performed By: #### CBC ####[facility] [address] [place], [place] [address]Dr.Airam DeuceNeutrophils/100 WBC (Bld)61.2 %Normal 43.0-75.0The [facility] CenterComment on above:Performed By: #### CBC ####[facility] [address]xe[address] [place], [place] [address]Dr. Airam DeucePlatelet mean volume (Bld) [Entitic vol]9.4 fLCritically low9.5-13.5 The [facility] CenterComment on above:Performed By: #### CBC ####[facility] [address] [place] [address]Dr.Airam TripathiPLT247 103/aaGpkzbp308-469Jsk [facility] CenterComment on above:Performed By: #### CBC ####[facility] [address] [place], [place] [address]Dr. Airam TripathiRBC3.03 106/ulCritically low4.20-5.40The [facility] CenterComment on above:Performed By: #### CBC ####[facility] Pktxxlatmj[address] [place], [place] [address]Dr.Airam TripathiWBC6.4 103/ulNormal4.0-11.0The [facility] CenterComment on above:Performed By: #### CBC ####[facility] [address]wk[address] [place], [place] [address]Dr.Airam TripathiPROF 14(COMP METB)on [id number] [Mass/Vol]2.5 g/dLCritically low3.4-5.0The [facility] CenterComment on above:Performed By: #### CMP, BNP ####[facility] [address] [place], [place] [address]Dr. Airam Tripathi Albumin/Globulin [Mass ratio]0.9 {ratio}NormalThe [facility] CenterComment on above:Performed By: #### CMP, BNP ####[facility] [address] [place], [place] [address]Dr. Airam TripathiALP [Catalytic activity/Vol]108 U/L Dffyfd09-353Nmx [facility] CenterComment on above:Performed By: #### CMP, BNP ####[facility] [address] [place], [place] [address]Dr. Airam TripathiALT [Catalytic activity/Vol]20 U/GXzlvmm26-60Frk [facility] Comment on above:Performed By: #### CMP, BNP ####[facility] [address]rsq[address] [place], [place] [address]Dr. Yilan ChangAnion gap [Moles/Vol]10.4 mmol/LNormalThe [facility] CenterComment on above:Performed By: #### CMP, BNP ####[facility] Jgdsxqnawi[address] [place], [place] [address]Dr. Yilan ChangAST [Catalytic activity/Vol]20 U/HNkxpoi38-00Zgw [facility] CenterComment on above:Performed By: #### CMP, BNP ####[facility] Yegffylwbh6[address] [place], [place] [address]Dr. Yilan Tripathi Bilirubin [Mass/Vol]0.2 mg/dLNormal0.2-1.0The [facility] CenterComment on above: Performed By: #### CMP, BNP ####[facility] Loxsdjgyoc[address] [place], [place] [address]Dr. Yilan ChangCalcium [Mass/Vol]8.0 mg/dLCritically low8.5-10.1The [facility] CenterComment on above:Performed By: #### CMP, BNP ####[facility] Glaqpgnuzw0750[address] [place], [place] [address]Dr. Yilan ChangChloride [Moles/Vol]100 mmol/YXlskqy80-762Int [facility] Comment on above:Performed By: #### CMP, BNP ####[facility] Qkpnyzncbl54[address] [place], [place] [address]Dr. Yilan ChangCO2 [Moles/Vol]28.6 mmol/GDrkutu38.0-32.0The [facility] CenterComment on above: Performed By: #### CMP, BNP ####[facility] Yqidznvnbl94[address] [place], [place] [address]Dr. Yilan ChangCreatinine [Mass/Vol]1.66 mg/dL Critically high0.55-1.02The [facility] CenterComment on above:Performed By: #### CMP, BNP ####[facility] Rdhjfrpumv02[address] [place], [place] [address]Dr. Yilan ChangEGFR-AF FILTRKZO34 mL/min/1.23x9Sxgntdmztu low>=60The [facility] CenterComment on above:Performed By: #### CMP, BNP ####[facility] [address] [place] [address]Dr. Yilan ChangEGFR- NON AF ERHSBLKW20 mL/min/1.11z1Elemmldyiy low>=60The [facility] CenterComment on above:Performed By: #### CMP, BNP ####[facility] T[address]zttorci[address] [place] [address]Dr. Yilan ChangGlobulin (S) [Mass/Vol]2.8 g/dL NormalThe [facility] CenterComment on above:Performed By: #### CMP, BNP ####[facility] Rioltrgqlz4[address] [place], [place] [address]Dr. Yilan ChangGlucose [Mass/Vol]102 mg/cGLgjasb10-408Agd [facility] CenterComment on above:Performed By: #### CMP, BNP ####[facility] Rmratkggti[address] [place], [place] [address]Dr. Yilan ChangPotassium [Moles/Vol]5.0 mmol/L Normal3.5-5.1The [facility] CenterComment on above:Performed By: #### CMP, BNP ####[facility] Fauhdxancz[address] [place], [place] [address]Dr. Yilan ChangProtein [Mass/Vol]5.3 g/dLCritically low6.4-8.2The [facility] Comment on above:Performed By: #### CMP, BNP ####[facility] Djroifdjzt68[address] [place], [place] [address]Dr. Yilan ChangSodium [Moles/Vol]134 mmol/LCritically wbe789-074Fev [facility] CenterComment on above: Performed By: #### CMP, BNP ####[facility] Jolfvqntsx5659[address] [place], [place] [address]Dr. Yilan ChangUrea nitrogen [Mass/Vol]45.0 mg/dL Critically high7.0-18.0The [facility] CenterComment on above:Performed By: #### CMP, BNP ####[facility] Kgtjpnnyib74[address] [place], [place] [address]Dr. Yilan ChangUrea nitrogen/Creatinine [Mass ratio]27.1 mg/mgNormalThe [facility] CenterComment on above:Performed By: #### CMP, BNP ####[facility] [address]zdyhl[address] [place] [address]Dr. Airam TripathiBNPon 47-70-7060Ytkfttnibhj peptide B (Bld) [Mass/Vol]4569.0 pg/mLCritically high <=900.0The [facility] CenterComment on above:Performed By: #### CMP, BNP ####[facility] M[address]qzdzcj[address] [place] [address]Dr. Selenaneil DeuceCBC AUTO DIFFon 05-52-9262ZQEK #0.0 103/ulNormal0.0-0.1The [facility] on above:Performed By: #### CBC ####[facility] Br[address]vfz[address] [place] [address]Dr.Airam ChangBasophils/100 WBC (Bld)0.5 %Normal0.2-2.0The [facility] on above:Performed By: #### CBC ####[facility] Mjmxbszzwm[address] [place], [place] [address]Dr.Selenalan ChangEO #0.3 103/ulNormal0.0-0.7The [facility] on above:Performed By: #### CBC ####[facility] Pndhwomixr[address] [place], [place] [address]Dr.Airam ChangEosinophils/100 WBC (Bld)5.6 %Normal 0.9-7.0The [facility] Hospitalment on above:Performed By: #### CBC ####[facility] Zebrennsjt[address] [place], [place] [address]Dr.Airam Tripathi Erythrocyte distribution width (RBC) [Ratio]15.7 %Critically high11.0-15.0The [facility] on above:Performed By: #### CBC ####[facility] Xcxuhgqwdo54[address] [place], [place] [address]Dr.Airam TripathiHematocrit (Bld) [Volume fraction]30.1 %Critically low36.0-48.0The [facility] CenterComment on above:Performed By: #### CBC ####[facility] C[address]pclrom[address] [place] [address]Dr.Airam ChangHemoglobin (Bld) [Mass/Vol]9.2 g/dL Critically low12.0-16.0The [facility] CenterComment on above:Performed By: #### CBC ####[facility] Naytjdcfat88[address] [place], [place] [address]Dr. Selenalan ChangIG #0.03 10e3/ulNormal0.00-0.03The [facility] CenterComment on above: Performed By: #### CBC ####[facility] Qmhqoxpfsv7[address] [place], [place] [address]Dr.Airam TripathiIG %0.5 %Normal0.0-0.5The [facility] CenterComment on above:Performed By: #### CBC ####[facility] Mwvzdnxgcy224[address] [place], [place] [address]Dr.Airam DeuceLYMPH #1.7 103/ulNormal1.2-3.8The [facility] CenterComment on above:Performed By: #### CBC ####[facility] Nuegeksoee[address] [place], [place] [address]Dr. Selenaneil TripathiLymphocytes/100 WBC (Bld)28.9 %Fzqbbg06.5-60.0The [facility] Comment on above:Performed By: #### CBC ####[facility] Qdetpknyax3312[address] [place], [place] [address]Dr.Airam TripathiMANUAL DIFF REQNONormalThe [facility] CenterComment on above:Performed By: #### CBC ####[facility] Ngxqxtnddo336[address] [place], [place] [address]Dr.Airam TripathiH (RBC) [Entitic mass]28.4 ngOzdxbo15.7-34.0The [facility] CenterComment on above: Performed By: #### CBC ####[facility] Ejjakhjerd6828[address] [place], [place] [address]Dr.Airam TripathiUP[facility] (RBC) [Mass/Vol]30.6 g/dLNormal 29.9-35.2The [facility] CenterComment on above:Performed By: #### CBC ####[facility] Zqbriskqxh[address] [place] [address]Dr. Airam DeuceMCV (RBC) [Entitic vol]92.9 oYOaeapb88.0-99.0The [facility] Comment on above:Performed By: #### CBC ####[facility] Jykoxzagtj25[address] [place], [place] [address]Dr.Airam TripathiMONO #0.5 103/ulNormal0.3-0.8 The [facility] HospitalComment on above:Performed By: #### CBC ####[facility] Jlaelrbuyg[address] [place], [place] [address]Dr.Airam Tripathi Monocytes/100 WBC (Bld)8.5 %Normal1.7-12.0The [facility] CenterComment on above: Performed By: #### CBC ####[facility] Rglypqprbz102[address] [place], [place] [address]Dr.Airam TripathiNEUT #3.2 103/ulNormal1.4-6.5The [facility] CenterComment on above:Performed By: #### CBC ####[facility] Bjehnvnuvv[address] [place], [place] [address]Dr.Selenaneil TripathiNeutrophils/100 WBC (Bld)56.0 %Vobhjq98.0-75.0The [facility] HospitalComment on above:Performed By: #### CBC ####[facility] Iutettacah6[address] [place], [place] [address]Dr.Selenaneil TripathiPlatelet mean volume (Bld) [Entitic vol]9.4 fLCritically low 9.5-13.5The [facility] HospitalComment on above:Performed By: #### CBC ####[facility] Prcpehnvfw39[address] [place], [place] [address]Dr. Airam TripahtiPLT272 103/cfIuahur999-849Gqp [facility] CenterComment on above: Performed By: #### CBC ####[facility] Bhoogknsfv23[address] [place], [place] [address]Dr.Airam TripathiRBC3.24 106/ulCritically low4.20-5.40The [facility] CenterComment on above:Performed By: #### CBC ####[facility] Xsywcmqklo0904[address] [place], [place] [address]Dr.Airam ChangWBC5.8 103/ul Normal4.0-11.0The [facility] CenterComment on above:Performed By: #### CBC ####[facility] Yaklkzxzgb6629[address] [place], [place] [address]Dr. Airam ChangOSMOLALITYon 60-30-3704Vjbgkuvvtr [Osmolality]282 mosm/kgNormal 275-295The [facility] CenterComment on above:Performed By: #### OSMO ####[facility] Mevnmayrgq23[address] [place], [place] [address]Dr. Yilan ChangPROF 14(COMP METB)on 44-79-6819Cpqktlq [Mass/Vol]2.7 g/dLCritically low3.4-5.0The [facility] CenterComment on above:Performed By: #### CMP, BNP ####[facility] Koobyarkwx4078[address] [place], [place] [address]Dr. Selenalan ChangAlbumin/Globulin [Mass ratio]0.9 {ratio}NormalParkview Health Bryan Hospital Comment on above:Performed By: #### CMP, BNP ####[facility] Ddgxjgunna4007[address] [place], [place] [address]Dr. Selenalan ChangALP [Catalytic activity/Vol]122 U/LCritically pfwl85-142Mzi [facility] CenterComment on above: Performed By: #### CMP, BNP ####[facility] Ehgaynoqnb110[address] [place], [place] [address]Dr. Yilan ChangALT [Catalytic activity/Vol]23 U/L Peyxhz17-53Hzf [facility] CenterComment on above:Performed By: #### CMP, BNP ####[facility] Shfsevbvmw1149[address] [place], [place] [address]Dr. Selenalan ChangAnion gap [Moles/Vol]10.5 mmol/LNormalThe [facility] CenterComment on above:Performed By: #### CMP, BNP ####[facility] Datkddimzo[address] [place] [address]Dr. Yilan ChangAST [Catalytic activity/Vol]22 U/L Mpnzug28-90Wwn [facility] CenterComment on above:Performed By: #### CMP, BNP ####[facility] Ozbicljein2734[address] [place], [place] [address]Dr. Yilan ChangBilirubin [Mass/Vol]0.2 mg/dLNormal0.2-1.0The [facility] Comment on above:Performed By: #### CMP, BNP ####[facility] Jsdfgqepkl10[address] [place], [place] [address]Dr. Yilan ChangCalcium [Mass/Vol]8.3 mg/dLCritically low8.5-10.1The [facility] CenterComment on above: Performed By: #### CMP, BNP ####[facility] Ldwolyembl69[address] [place], [place] [address]Dr. Yilan ChangChloride [Moles/Vol]102 mmol/LNormal 98-107The [facility] CenterComment on above:Performed By: #### CMP, BNP ####[facility] Xgmwcxpqau4756[address] [place], [place] [address]Dr. Yilan ChangCO2 [Moles/Vol]29.7 mmol/COqmlez79.0-32.0The [facility] CenterComment on above:Performed By: #### CMP, BNP ####[facility] Kyoiwwqyaw[address] [place], [place] [address]Dr. Yilan ChangCreatinine [Mass/Vol]1.31 mg/dL Critically high0.55-1.02The [facility] CenterComment on above:Performed By: #### CMP, BNP ####[facility] Nvuvzbogwc4834[address] [place], [place] [address]Dr. Yilan ChangEGFR-AF QWBFLCBA93 mL/min/1.80y9Bxafsctpwi low>=60The [facility] CenterComment on above:Performed By: #### CMP, BNP ####[facility] Kponyhouia[address] [place], [place] [address]Dr. Yilan ChangEGFR- NON AF HSMZIWFI00 mL/min/1.07l1Cwoummqyes low>=60The [facility] HospitalComment on above:Performed By: #### CMP, BNP ####[facility] Vhyoaaylng[address] [place], [place] [address]Dr. Yilan ChangGlobulin (S) [Mass/Vol]2.9 g/dL NormalThe [facility] CenterComment on above:Performed By: #### CMP, BNP ####[facility] Ykifnflntk5140[address] [place], [place] [address]Dr. Yilan ChangGlucose [Mass/Vol]94 mg/eTQqjcpd67-046Odi [facility] CenterComment on above:Performed By: #### CMP, BNP ####[facility] Typawgnbid1935[address] [place], [place] [address]Dr. Yilan ChangPotassium [Moles/Vol]4.2 mmol/L Normal3.5-5.1The [facility] CenterComment on above:Performed By: #### CMP, BNP ####[facility] Xlfvtuwmvt5397[address] [place], [place] [address]Dr. Yilan ChangProtein [Mass/Vol]5.6 g/dLCritically low6.4-8.2The [facility] Comment on above:Performed By: #### CMP, BNP ####[facility] Iyobxwwvbh24[address] [place], [place] [address]Dr. Yilan ChangSodium [Moles/Vol]138 mmol/NAhjciy774-456Ttv [facility] CenterComment on above: Performed By: #### CMP, BNP ####[facility] Ymjuwmaxxt2774[address] [place], [place] [address]Dr. Yilan ChangUrea nitrogen [Mass/Vol]33.0 mg/dL Critically high7.0-18.0The [facility] CenterComment on above:Performed By: #### CMP, BNP ####[facility] Mwsesuxbld1153[address] [place], [place] [address]Dr. Yilan ChangUrea nitrogen/Creatinine [Mass ratio]25.2 mg/mgNormalThe [facility] CenterComment on above:Performed By: #### CMP, BNP ####[facility] Vvqxfejhst38[address] [place], [place] [address]Dr. Yilan ChangBNPon 73-42-7722Rahmmnyujpo peptide B (Bld) [Mass/Vol]3805.0 pg/mLCritically high <=900.0The [facility] CenterComment on above:Performed By: #### HSTROPN, BNP, CMP ####[facility] [address] [place] [address]Dr. Airam TripathiCBC AUTO DIFFon 32-37-0141COJP #0.0 103/ulNormal0.0-0.1The [facility] CenterComment on above:Performed By: #### CBC ####[facility] Vsbtobuzmw8317[address] [place], [place] [address]Dr.Airam TripathiBasophils/100 WBC (Bld)0.3 %Normal0.2-2.0The [facility] CenterComment on above:Performed By: #### CBC ####[facility] Iltunrgats0345[address] [place], [place] [address]Dr.Selenalan ChangEO #0.3 103/ulNormal0.0-0.7The [facility] CenterComment on above:Performed By: #### CBC ####[facility] Wqpjtcahsn74[address] [place], [place] [address]Dr.Airam ChangEosinophils/100 WBC (Bld)4.2 %Normal 0.9-7.0The [facility] Hospitalment on above:Performed By: #### CBC ####[facility] Whkunlnlcc2437[address] [place], [place] [address]Dr.Airam Tripathi Erythrocyte distribution width (RBC) [Ratio]15.6 %Critically high11.0-15.0The [facility] CenterComment on above:Performed By: #### CBC ####[facility] Nheocaivva[address] [place], [place] [address]Dr.Airam TripathiHematocrit (Bld) [Volume fraction]30.0 %Critically low36.0-48.0The [facility] CenterComment on above:Performed By: #### CBC ####[facility] Oscnzkamxx123[address] [place], [place] [address]Dr.Airam TripathiHemoglobin (Bld) [Mass/Vol]9.3 g/dL Critically low12.0-16.0The [facility] CenterComment on above:Performed By: #### CBC ####[facility] Gkomgssgny3[address] [place], [place] [address]DrKianna TripathiIG #0.03 10e3/ulNormal0.00-0.03The [facility] CenterComment on above: Performed By: #### CBC ####[facility] Qjqjbccwbx022[address] [place], [place] [address]Dr.Airam TripathiIG %0.5 %Normal0.0-0.5The [facility] CenterComment on above:Performed By: #### CBC ####[facility] Zzkchvoplp38[address] [place], [place] [address]Dr.Airam DossH #1.4 103/ulNormal1.2-3.8The [facility] CenterComment on above:Performed By: #### CBC ####[facility] Rfdscefhxp6405[address] [place], [place] [address]Dr. Airam Dosshocytes/100 WBC (Bld)22.5 %Uahvsx95.5-60.0The [facility] Comment on above:Performed By: #### CBC ####[facility] Pdpgckllvw9[address] [place], [place] [address]Dr.Airam TripathiMANUAL DIFF REQNONormalThe [facility] CenterComment on above:Performed By: #### CBC ####[facility] Hjqeaxrowt[address] [place], [place] [address]Dr.Airam TripathiST. [facility] (RBC) [Entitic mass]28.7 nnWuribv86.7-34.0The [facility] CenterComment on above: Performed By: #### CBC ####[facility] Jlxgfwzpgl1278[address] [place], [place] [address]Dr.Airam TripathiUP[facility] (RBC) [Mass/Vol]31.0 g/dLNormal 29.9-35.2The [facility] CenterComment on above:Performed By: #### CBC ####[facility] Vbjfrkqolv2032[address] [place], [place] [address]Dr. Airam TripathiMCV (RBC) [Entitic vol]92.6 sIFlzyii54.0-99.0The [facility] Comment on above:Performed By: #### CBC ####[facility] Tggxihifgk5406[address] [place], [place] [address]Dr.Airam TripathiMONO #0.4 103/ulNormal0.3-0.8 The [facility] CenterComment on above:Performed By: #### CBC ####[facility] Bchausybur8969[address] [place], [place] [address]Dr.Airam Tripathi Monocytes/100 WBC (Bld)7.3 %Normal1.7-12.0The [facility] CenterComment on above: Performed By: #### CBC ####[facility] Mfcrubimgg77[address] [place], [place] [address]Dr.Airam TripathiNEUT #3.9 103/ulNormal1.4-6.5The [facility] CenterComment on above:Performed By: #### CBC ####[facility] Usosemmkuf[address] [place], [place] [address]Dr.Airam TripathiNeutrophils/100 WBC (Bld)65.2 %Uiaczh41.0-75.0The [facility] CenterComment on above:Performed By: #### CBC ####[facility] Zysyytrvbi395[address] [place], [place] [address]Dr.Airam TripathiPlatelet mean volume (Bld) [Entitic vol]9.0 fLCritically low 9.5-13.5The [facility] CenterComment on above:Performed By: #### CBC ####[facility] Okpprlpusr357[address] [place], [place] [address]Dr. Airam TripathiPLT247 103/ffAarzyb222-004Lao [facility] CenterComment on above: Performed By: #### CBC ####[facility] Gfdjyafvcs[address] [place], [place] [address]Dr.Airam TripathiRBC3.24 106/ulCritically low4.20-5.40The [facility] CenterComment on above:Performed By: #### CBC ####[facility] Jkbiyfsihv8164[address] [place], [place] [address]Dr.Selenaneil TripathiWBC6.0 103/ul Normal4.0-11.0The [facility] CenterComment on above:Performed By: #### CBC ####[facility] [address]idsd[address] [place] [address]Dr. Airam DeuceCULTURE URINEon 81-40-4484TCGMECJ URINECulture Observations: LIGHT GROWTH OF MIXED GENITAL GREGORY. NO POTENTIAL PATHOGENS SEEN.NormalThe [facility] HospitalComment on above:Performed By: #### URCX ####[facility] Lprkfsrfdo[address] [place] [address]Dr. Airam TripathiPOINT OF CARE GLUCOSEon 12-17-8687Ksljans [Mass/Vol]118 mg/dLCritically peip65-537Sln [facility] CenterComment on above:Performed By: #### POCGLUC ####[facility] Jikdmrkaer[address] [place] [address]Dr. Airam TripathiPROF 14(COMP METB)on 45-10-9129Tuooccw [Mass/Vol]3.1 g/dLCritically low3.4-5.0The [facility] CenterComment on above:Performed By: #### HSTROPN, BNP, CMP ####[facility] [address]sjyg[address] [place] [address]Dr. Airam Tripathi Albumin/Globulin [Mass ratio]1.0 {ratio}NormalThe [facility] CenterComment on above:Performed By: #### HSTROPN, BNP, CMP ####[facility] [address]qsxtckp[address] [place] [address]Dr. Airam TripathiALP [Catalytic activity/Vol] 131 U/LCritically wyty50-535Dpc [facility] CenterComment on above:Performed By: #### HSTROPN, BNP, CMP ####[facility] [address] [place] [address]Dr. Airam TripathiALT [Catalytic activity/Vol]26 U/LNormal 14-59The [facility] CenterComment on above:Performed By: #### HSTROPN, BNP, CMP ####[facility] T[address]mmessoh[address] [place] [address]Dr. Airam TripathiAnion gap [Moles/Vol]11.2 mmol/LNormalThe [facility] CenterComment on above:Performed By: #### HSTROPN, BNP, CMP ####[facility] Z[address]mcwxtmp[address] [place] [address]Dr. Airam ChangAST [Catalytic activity/Vol] 31 U/VJiogsi19-43Ite [facility] CenterComment on above:Performed By: #### HSTROPN, BNP, CMP ####[facility] [address]ztognwlth[address] [place] [address]Dr. Airam ChangBilirubin [Mass/Vol]0.2 mg/dLNormal0.2-1.0The [facility] CenterComment on above:Performed By: #### HSTROPN, BNP, CMP ####[facility] [address]oyiopga[address] [place] [address]Dr. Selenaneil Tripathi Calcium [Mass/Vol]8.6 mg/dLNormal8.5-10.1The [facility] CenterComment on above: Performed By: #### HSTROPN, BNP, CMP ####[facility] [address]vhrr[address] [place] [address]Dr. Selenaneil ChangChloride [Moles/Vol]102 mmol/L Jxjpwo57-452Huz [facility] CenterComment on above:Performed By: #### HSTROPN, BNP, CMP ####[facility] [address]hlfbzong[address] [place] [address]Dr. Airam ChangCO2 [Moles/Vol]27.4 mmol/THeieoy22.0-32.0The [facility] CenterComment on above:Performed By: #### HSTROPN, BNP, CMP ####[facility] Enddyltlvq[address] [place] [address]Dr. Airam Tripathi Creatinine [Mass/Vol]1.23 mg/dLCritically high0.55-1.02The [facility] Comment on above:Performed By: #### HSTROPN, BNP, CMP ####[facility] [address]qcdognmwt[address] StreetBellevue,[place] [address]Oq. Yilan ChangEGFR-AF YXEMGATP31 mL/min/1.57w9Mjjinskcoe low>=60The [facility] CenterComment on above: Performed By: #### HSTROPN, BNP, CMP ####[facility] Azhrhqxcrt[address] [place] [address]Dr. Yilan ChangEGFR-NON AF ANPKJSGJ94 mL/min/1.94x9Vbxidtxkte low>=60The [facility] CenterComment on above:Performed By: #### HSTROPN, BNP, CMP ####[facility] Ithudvusdj[address] [place], [place] [address]Dr. Yilan ChangGlobulin (S) [Mass/Vol]3.1 g/dLNormalThCommunity Memorial HospitalComment on above:Performed By: #### HSTROPN, BNP, CMP ####[facility] Kwfuofimtp[address] [place], [place] [address]Dr. Yilan ChangGlucose [Mass/Vol]90 mg/eLEwwnvi69-285Bac [facility] CenterCombaraga [facility] on above:Performed By: #### HSTROPN, BNP, CMP ####[facility] Xnxcsdwobl[address] [place], [place] [address]Dr. Yilan ChangPotassium [Moles/Vol]5.6 mmol/LCritically high3.5-5.1The [facility] CenterCombaraga county memorial hospital on above:Performed By: #### HSTROPN, BNP, CMP ####[facility] Zowxxhyvmo[address] [place], [place] [address]Dr. Yilan ChangProtein [Mass/Vol]6.2 g/dLCritically low 6.4-8.2The [facility] CenterComment on above:Performed By: #### HSTROPN, BNP, CMP ####[facility] Fkzjeqxrba[address] [place], [place] [address]Dr. Yilan ChangSodium [Moles/Vol]135 mmol/LCritically ctk202-687Jzs [facility] Hospitalment on above:Performed By: #### HSTROPN, BNP, CMP ####[facility] [address]cuhrmxjbz[address] [place], [place] [address]Dr. Yilan ChangUrea nitrogen [Mass/Vol]38.0 mg/dLCritically high7.0-18.0The [facility] CenterComment on above:Performed By: #### HSTROPN, BNP, CMP ####[facility] [address]qsjsf[address] [place] [address]Dr. Yilan ChangUrea nitrogen/Creatinine [Mass ratio]30.9 mg/mgNormalThe [facility] CenterComment on above:Performed By: #### HSTROPN, BNP, CMP ####[facility] [address]rjruk[address] [place] [address]Dr. Selenalan ChangTROPONIN, HIGH SENSITIVITYon 32-03-9671WBCWXM9.0 pg/mLNormal4.0-51.3The [facility] CenterCombaraga [facility] memorial hospital on above: Result Comment: CUT-OFF POINTS HAVE BEEN ESTABLISHED BASED ON THE FOURTH UNIVERSAL DEFINITIONS OF MYOCARDIALINFARCTION. THE UPPER REFERENCE LIMIT (URL) OF TROPONIN, DEFINED THE 99TH PERCENTILE OFcTnI DISTRIBUTION IN A REFERENCE POPULATION, HAS BEEN CONFIRMED THE DECISION THRESHOLDFOR PA DIAGNOSIS. Performed By: #### HSTROPN, BNP, CMP ####[facility] [address]aps[address] [address]Dr. Yilan ChangUA RANDOM W/MICROSCOPICon 50-09-7203LNUYLBUNRCEY SEENNormalNONE SEENThe [facility] CenterCombar[facility] on above: Performed By: #### UAMIC ####[facility] [address] [address]Dr. Yilan ChangBilirubin Ql (U)NegativeNormalNEGATIVE The [facility] CenterCombar[facility] on above:Performed By: #### UAMIC ####[facility] Jjmwfkqcgr[address] [address]Dr. Yilan ChangCAST NONE SEENNormalNONE SEENParkview Health Bryan HospitalCombaraga county memorial hospital on above:Performed By: #### UAMIC ####[facility] [address]vtbfisn[address] [address]Dr. Yilan ChangClarity (U)CLEARNormalCLEARThe [facility] CenterComment on above:Performed By: #### UAMIC ####[facility] Lwhhyhajtw[address] [place], [place] [address]Dr. Yilan ChangColor (U)LT. YELLOWNormalYELLOWParkview Health Bryan HospitalComment on above:Performed By: #### UAMIC ####[facility] Krietokago[address] [place], [place] [address]Dr. Yilan ChangCrystals LM Nom (Urine sed)NONE SEENNormalNONE SEENParkview Health Bryan HospitalComment on above: Performed By: #### UAMIC ####[facility] Gannwrshjj78[address] [place], [place] [address]Dr. Yilan ChangEpithelial cells LM Ql (Urine sed)RARE NormalNONE SEEN /RAREParkview Health Bryan HospitalComment on above:Performed By: #### UAMIC ####[facility] Yvfifhupzq[address] [place], [place] [address]Dr. Yilan ChangGlucose Ql (U)NegativeNormalNEGCleveland Clinic Fairview Hospital Comment on above:Performed By: #### UAMIC ####[facility] Uyxkotdqal24[address] [place], [place] [address]Dr. Yilan ChangHemoglobin Ql (U)Negative NormalNEGATIVEParkview Health Bryan HospitalComment on above:Performed By: #### UAMIC ####[facility] Ogrpxmejtf3166[address] [place], [place] [address]Dr. Yilan ChangKetones Ql (U)NegativeNormalNEGATIVEParkview Health Bryan HospitalComment on above:Performed By: #### UAMIC ####[facility] Ekkpawolsw[address] [place], [place] [address]Dr. Yilan ChangLEUKOCYTESNegativeNormalNEGATIVEParkview Health Bryan HospitalComment on above:Performed By: #### UAMIC ####[facility] Rrjzzhjnbv[address] [place], [place] [address]Dr. Yilan ChangMUCOUSNONE SEENNormalNONE SEENParkview Health Bryan HospitalComment on above:Performed By: #### UAMIC ####[facility] Wmxopdtwkg78[address] [place], [place] [address]Dr. Yilan ChangNitrite Ql (U)NegativeNormalNEGATIVEParkview Health Bryan Hospital Comment on above:Performed By: #### UAMIC ####[facility] Ggceahgpkj[address] [address]Dr. Airam ChangpH (U)7.0 [pH]Normal5-9The [facility] CenterComment on above:Performed By: #### UAMIC ####[facility] Dmwxjpcqlq4316[address] [place], [place] [address]Dr. Airam ChangRBC0-2Normal 0-2The [facility] CenterComment on above:Performed By: #### UAMIC ####[facility] Sibrdltalp65[address] [place], [place] [address]Dr. Selenalan ChangSPEC GRAVITY1.581Vrvvbw6.005-<=1.025The [facility] CenterComment on above:Performed By: #### UAMIC ####[facility] Czuypfdlfo6398[address] [place], [place] [address]Dr. Yilan ChangUA PROTEINNegativeNormalNEGATIVE/ TRACEThe [facility] CenterComment on above:Performed By: #### UAMIC ####[facility] Eriyhhzpmk65[address] [place], [place] [address]Dr. Yilan DeuceUrobilinogen Qn (U)0.2 {Ligia'U}/dLNormal0.2 - 1.0The [facility] CenterCombaraga [facility] memorial hospital on above: Performed By: #### UAMIC ####[facility] Vicryigpuk18[address] [place], [place] [address]Dr. Yilan ChangWBCNONE SEENNormalNONE SEENThe [facility] CenterComment on above:Performed By: #### UAMIC ####[facility] Ehtoxpygch9969[address] [place], [place] [address]Dr. Yilan ChangXR CHEST 1 Von 38-12-1128YF CHEST 1 VNormalThe [facility] AUTO DIFFon 65-97-8469TXYK #0.0 103/ulNormal0.0-0.1The [facility] CenterCombaraga county memorial hospital on above:Performed By: #### CBC ####[facility] Buhjrzlytp06[address] [place], [place] [address]Dr.Yilan ChangBasophils/100 WBC (Bld)0.5 %Normal0.2-2.0The [facility] CenterComment on above:Performed By: #### CBC ####[facility] Gtrkodcdau3213[address] [place], [place] [address]Dr.Airam ChangEO #0.3 103/ul Normal0.0-0.7The [facility] CenterComment on above:Performed By: #### CBC ####[facility] Imqpvghhxf9795[address] [place], [place] [address]Dr. Airam ChangEosinophils/100 WBC (Bld)3.3 %Normal0.9-7.0The [facility] Comment on above:Performed By: #### CBC ####[facility] Oytcimngdc1464[address] [place], [place] [address]Dr.Airam ChangErythrocyte distribution width (RBC) [Ratio]15.0 %Jwssmv33.0-15.0The [facility] CenterComment on above: Performed By: #### CBC ####[facility] Ijtbmugdjw3284[address] [place], [place] [address]Dr.Airam ChangHematocrit (Bld) [Volume fraction]32.9 % Critically low36.0-48.0The [facility] CenterComment on above:Performed By: #### CBC ####[facility] Yguegbzoko6744[address] [place], [place] [address]Dr. Airam ChangHemoglobin (Bld) [Mass/Vol]10.1 g/dLCritically low12.0-16.0The [facility] CenterComment on above:Performed By: #### CBC ####[facility] Fcopffvkgs4229[address] [place], [place] [address]Dr.Airam ChangIG #0.04 10e3/ulCritically high0.00-0.03The [facility] CenterComment on above:Performed By: #### CBC ####[facility] Cprtkkmmup6435[address] [place], [place] [address]Dr.Airam ChangIG %0.5 %Normal0.0-0.5The [facility] CenterComment on above: Performed By: #### CBC ####[facility] Bdsfdunhgo1294[address] [place], [place] [address]Dr.Airam TripathiLYMPH #1.5 103/ulNormal1.2-3.8The [facility] CenterComment on above:Performed By: #### CBC ####[facility] As[address]ufuq[address] [address]Dr.Airam TripathiLymphocytes/100 WBC (Bld)18.1 %Critically low20.5-60.0The [facility] CenterComment on above: Performed By: #### CBC ####[facility] Ckltmwnfjd[address] [address]Dr.Airam TripathiMANUAL DIFF REQNONormalThe [facility] CenterComment on above:Performed By: #### CBC ####[facility] Untzwalxlk6904[address] [place], [place] [address]Dr.Airam TripathiMCH (RBC) [Entitic mass]28.3 glBvfxag72.7-34.0The [facility] CenterComment on above: Performed By: #### CBC ####[facility] Gmjluvbgfn4415[address] [place], [place] [address]Dr.Airam TripathiMCHC (RBC) [Mass/Vol]30.7 g/dLNormal 29.9-35.2The [facility] CenterComment on above:Performed By: #### CBC ####[facility] Xdfonntfyf5775[address] [place], [place] [address]Dr. Airam TripathiMCV (RBC) [Entitic vol]92.2 wUMizbgz30.0-99.0The [facility] Comment on above:Performed By: #### CBC ####[facility] Juvblvziwa8413[address] [place], [place] [address]Dr.Airam TripathiMONO #0.7 103/ulNormal0.3-0.8 The [facility] CenterComment on above:Performed By: #### CBC ####[facility] Kxbtzzrfrk[address] [place], [place] [address]Dr.Airam Tripathi Monocytes/100 WBC (Bld)7.7 %Normal1.7-12.0The [facility] CenterComment on above: Performed By: #### CBC ####[facility] [address]wrg[address] [address]Dr.Airam ChangNEUT #5.9 103/ulNormal1.4-6.5The [facility] CenterComment on above:Performed By: #### CBC ####[facility] Avfmvuwusb9898[address] [place], [place] [address]Dr.Airam TripathiNeutrophils/100 WBC (Bld)69.9 %Ucmptg79.0-75.0The [facility] CenterComment on above:Performed By: #### CBC ####[facility] Sogpucuzgw5567[address] [place], [place] [address]Dr.Airam TripathiPlatelet mean volume (Bld) [Entitic vol]9.3 fLCritically low 9.5-13.5The [facility] CenterComment on above:Performed By: #### CBC ####[facility] Wxntkeamqy9685[address] [place], [place] [address]Dr. Airam WasfyMLP465 103/lzHpkveg102-862Mpi [facility] CenterComment on above: Performed By: #### CBC ####[facility] Kcsdfvtxsi7176[address] [place], [place] [address]Dr.Selenaneil ChangRBC3.57 106/ulCritically low4.20-5.40The [facility] CenterComment on above:Performed By: #### CBC ####[facility] Iyouxegtuq258[address] [place], [place] [address]Dr.Airam ChangWBC8.4 103/ul Normal4.0-11.0The [facility] CenterComment on above:Performed By: #### CBC ####[facility] Emmvsokwoc2518[address] [place], [place] [address]Dr. Selenaneil ChangPROF 14(COMP METB)on 88-00-4404Rhsyogr [Mass/Vol]3.1 g/dLCritically low3.4-5.0The [facility] CenterComment on above:Performed By: #### CMP ####[facility] Oqemxfnbmq8196[address] [place], [place] [address]Dr. Airam TripathiAlbumin/Globulin [Mass ratio]0.9 {ratio}NormalThe [facility] Comment on above:Performed By: #### CMP ####[facility] [address]jnssnp[address] [address]Dr.Yilan ChangALP [Catalytic activity/Vol] 117 U/LCritically sbmk61-464Mwe [facility] CenterComment on above:Performed By: #### CMP ####[facility] Danqisrqlw[address] [address]Dr.Yilan ChangALT [Catalytic activity/Vol]24 U/DZtcjuz38-75Mmt [facility] CenterComment on above:Performed By: #### CMP ####[facility] Mixsjefsot[address] [place], [place] [address]Dr.Yilan ChangAnion gap [Moles/Vol]11.1 mmol/LNormalThe [facility] CenterComment on above:Performed By: #### CMP ####[facility] Pkquueuxdq1805[address] [place], [place] [address]Dr.Yilan ChangAST [Catalytic activity/Vol]22 U/FQiaier26-94Dzi [facility] CenterComment on above:Performed By: #### CMP ####[facility] Mmchtziubo5732[address] [place], [place] [address]Dr.Yilan ChangBilirubin [Mass/Vol]0.2 mg/dLNormal0.2-1.0The [facility] CenterComment on above:Performed By: #### CMP ####[facility] Eebzoyhqla95[address] [place], [place] [address]Dr.Yilan ChangCalcium [Mass/Vol]8.4 mg/dLCritically low8.5-10.1The [facility] CenterComment on above:Performed By: #### CMP ####[facility] Qeiimmajcb2653[address] [place], [place] [address]Dr.Yilan ChangChloride [Moles/Vol]103 mmol/QAwnots11-183Waq [facility] CenterComment on above:Performed By: #### CMP ####[facility] Gagqjlhghs362[address] [place], [place] [address]Dr.Yilan ChangCO2 [Moles/Vol]25.0 mmol/AAxktlm94.0-32.0The [facility] CenterComment on above:Performed By: #### CMP ####[facility] [address] [address]Dr.Yilan ChangCreatinine [Mass/Vol]1.27 mg/dLCritically high0.55-1.02The [facility] CenterComment on above:Performed By: #### CMP ####[facility] V[address]knvikvr[address] [address]Dr.Yilan ChangEGFR-AF VZKOKOIZ04 mL/min/1.73m2 Critically low>=60The [facility] CenterComment on above:Performed By: #### CMP ####[facility] V[address]rtgynttk[address] [address]Dr. Yilan ChangEGFR-NON AF UFPMVDLF97 mL/min/1.16b6Leuoaqmwln low>=60The [facility] CenterComment on above:Performed By: #### CMP ####[facility] Ktdkdeyuch6710[address] [place], [place] [address]Dr.Yilan ChangGlobulin (S) [Mass/Vol]3.3 g/dLNormalThe [facility] CenterComment on above:Performed By: #### CMP ####[facility] Rzhydenaxi8[address] [place], [place] [address]Dr.Yilan ChangGlucose [Mass/Vol]90 mg/kXNsaxkh51-819Nnu [facility] Comment on above:Performed By: #### CMP ####[facility] Rdnlztmjnz9036[address] [place], [place] [address]Dr.Yilan ChangPotassium [Moles/Vol]5.1 mmol/LNormal3.5-5.1The [facility] CenterComment on above:Performed By: #### CMP ####[facility] Tfyvtdggst[address] [place], [place] [address]Dr. Yilan ChangProtein [Mass/Vol]6.4 g/dLNormal6.4-8.2The [facility] CenterComment on above:Performed By: #### CMP ####[facility] Yaqfcvyyvi4109[address] [place], [place] [address]Dr.Yilan ChangSodium [Moles/Vol]134 mmol/LCritically ngt045-729Rvg [facility] CenterComment on above:Performed By: #### CMP ####[facility] Zbdvrqetve1867[address] [place], [place] [address]Dr. Airam ChangUrea nitrogen [Mass/Vol]33.0 mg/dLCritically high7.0-18.0The [facility] CenterComment on above:Performed By: #### CMP ####[facility] Qsapsxsmhl8936[address] [place], [place] [address]Dr.Airam ChangUrea nitrogen/Creatinine [Mass ratio]26.0 mg/mgNormalThe [facility] CenterComment on above:Performed By: #### CMP ####[facility] Qxrffoufuu035[address] [place], [place] [address]Dr.Selenaneil ChangOSMOLALITYon 75-91-0419Stfjtngggb [Osmolality]272 mosm/kgCritically fxc549-902Vcy [facility] CenterComment on above:Performed By: #### OSMO ####[facility] Gatcjpkalv7939[address] [place], [place] [address]Dr. Airam ChangBNPon 55-73-0005Zpcguuzuvvs peptide B (Bld) [Mass/Vol]1337.0 pg/mLCritically high<=900.0The [facility] on above:Performed By: #### BNP ####[facility] Iqpkhuakgc37[address] [place], [place] [address]Dr.Airam TripathiCBC AUTO DIFFon 00-66-2707EQIX #0.0 103/ulNormal0.0-0.1The [facility] on above:Performed By: #### CBC ####[facility] Neavmkwlxx4766[address] [place], [place] [address]Dr. Selenaneil DeuceBasophils/100 WBC (Bld)0.6 %Normal0.2-2.0The [facility] on above:Performed By: #### CBC ####[facility] Tmwleepapu9089[address] [place], [place] [address]Dr.Airam ChangEO #0.2 103/ulNormal0.0-0.7The [facility] CenterComment on above:Performed By: #### CBC ####[facility] Kgfixlmgkn3957[address] [place], [place] [address]Dr.Yilan ChangEosinophils/100 WBC (Bld)2.3 %Normal0.9-7.0The [facility] CenterComment on above:Performed By: #### CBC ####[facility] Oumgdyujth352[address] [place], [place] [address]Dr.Yilan ChangErythrocyte distribution width (RBC) [Ratio]15.1 %Critically high11.0-15.0The [facility] HospitalComment on above:Performed By: #### CBC ####[facility] Cfjsvvrsni2495[address] [place], [place] [address]Dr. Yilan ChangHematocrit (Bld) [Volume fraction]35.9 %Critically low36.0-48.0The [facility] CenterComment on above:Performed By: #### CBC ####[facility] Esefxpknqy2158[address] [place], [place] [address]Dr.Airam ChangHemoglobin (Bld) [Mass/Vol]11.4 g/dLCritically low12.0-16.0The [facility] CenterComment on above:Performed By: #### CBC ####[facility] Uoznpvhtol[address] [place], [place] [address]Dr.Yilan ChangIG #0.03 10e3/ulNormal0.00-0.03The [facility] CenterComment on above:Performed By: #### CBC ####[facility] Jiazswljes3027[address] [place], [place] [address]Dr.Yilan ChangIG %0.5 %Normal 0.0-0.5The [facility] CenterComment on above:Performed By: #### CBC ####[facility] Hvimsqihli274[address] [place], [place] [address]Dr.Yilan ChangLYMPH #1.1 103/ulCritically low1.2-3.8The [facility] CenterComment on above:Performed By: #### CBC ####[facility] Gezvmhbcjo2765[address] [place], [place] [address]Dr.Yilan ChangLymphocytes/100 WBC (Bld)17.2 %Critically low20.5-60.0 [facility] HospitalComment on above:Performed By: #### CBC ####[facility] [address]vpvhiw[address] [place] [address]DrKiannaSelenaneil TripathiMANUAL DIFF REQNONormalThe [facility] CenterComment on above:Performed By: #### CBC ####[facility] Oljsxbfjoa[address] [place], [place] [address]Dr. Selenaneil TripathiH (RBC) [Entitic mass]28.8 mrVfmdbu44.7-34.0The [facility] Comment on above:Performed By: #### CBC ####[facility] Knvxsnhmwm9375[address] [place], [place] [address]DrKiannaSelenaneil TripathiHC (RBC) [Mass/Vol]31.8 g/dL Hixffs00.9-35.2The [facility] CenterComment on above:Performed By: #### CBC ####[facility] Lscxegvvsh8889[address] [place], [place] [address]Dr. Airam TripathiV (RBC) [Entitic vol]90.7 jOBshfex67.0-99.0[facility] Comment on above:Performed By: #### CBC ####[facility] Hnautfwtye[address] [place], [place] [address]DrBroderick CandelarioO #0.5 103/ulNormal0.3-0.8 [facility] HospitalComment on above:Performed By: #### CBC ####[facility] Xwhvhilnmp1466[address] [place], [place] [address]DrKiannaSelenaneil Tripathi Monocytes/100 WBC (Bld)7.7 %Normal1.7-12.0The [facility] CenterComment on above: Performed By: #### CBC ####[facility] Tfyiwgvabl85[address] [place], [place] [address]DrBroderick TripathiNEUT #4.7 103/ulNormal1.4-6.5The [facility] CenterComment on above:Performed By: #### CBC ####[facility] Vqmsmtljwl8183[address] [place], [place] [address]Dr.Yilan ChangNeutrophils/100 WBC (Bld)71.7 %Tpobdj09.0-75.0The [facility] CenterComment on above:Performed By: #### CBC ####[facility] Ebenbikqjk9624[address] [place], [place] [address]Dr.Airam TripathiPlatelet mean volume (Bld) [Entitic vol]8.2 fLCritically low 9.5-13.5The [facility] CenterComment on above:Performed By: #### CBC ####[facility] Qdoaepvmht4328[address] [place], [place] [address]Dr. Airam EgxmpNVN507 103/rfTntbmy343-712Umo [facility] CenterComment on above: Performed By: #### CBC ####[facility] Cetgzinldb075[address] [place], [place] [address]Dr.Airam ChangRBC3.96 106/ulCritically low4.20-5.40The [facility] CenterComment on above:Performed By: #### CBC ####[facility] Yavgdoqijy7829[address] [place], [place] [address]Dr.Airam TripathiWBC6.6 103/ul Normal4.0-11.0The [facility] CenterComment on above:Performed By: #### CBC ####[facility] Hfryejdzfy6135[address] [place], [place] [address]Dr. Airam ChangPROF 14(COMP METB)on 92-08-7242Vklhzgr [Mass/Vol]3.3 g/dLCritically low3.4-5.0The [facility] CenterComment on above:Performed By: #### CMP ####[facility] Hydogpxymx9386[address] [place], [place] [address]Dr. Airam TripathiAlbumin/Globulin [Mass ratio]0.9 {ratio}NormalThe [facility] Comment on above:Performed By: #### CMP ####[facility] Idmkwrmwfe1224[address] [place], [place] [address]Dr.Airam TripathiALP [Catalytic activity/Vol] 130 U/LCritically uams54-725Ojd [facility] CenterComment on above:Performed By: #### CMP ####[facility] Mdjgyejtvv[address] [address]Dr.Yilan ChangALT [Catalytic activity/Vol]23 U/GYhndbw96-47Lta [facility] CenterComment on above:Performed By: #### CMP ####[facility] Bnvxwwqyag[address] [place], [place] [address]Dr.Yilan ChangAnion gap [Moles/Vol]11.7 mmol/LNormalThe [facility] CenterComment on above:Performed By: #### CMP ####[facility] Kezrggxigj6970[address] [place], [place] [address]Dr.Yilan ChangAST [Catalytic activity/Vol]23 U/OZzbauy38-36Rsn [facility] CenterComment on above:Performed By: #### CMP ####[facility] Dqqqyynrdv18[address] [place], [place] [address]Dr.Yilan ChangBilirubin [Mass/Vol]0.3 mg/dLNormal0.2-1.0The [facility] CenterComment on above:Performed By: #### CMP ####[facility] Vwjkvgtzqb536[address] [place], [place] [address]Dr.Yilan ChangCalcium [Mass/Vol]8.7 mg/dLNormal8.5-10.1The [facility] CenterComment on above:Performed By: #### CMP ####[facility] Sxynqybdur5347[address] [place], [place] [address]Dr.Yilan ChangChloride [Moles/Vol]99 mmol/CBicjps36-463Kwm [facility] CenterComment on above:Performed By: #### CMP ####[facility] Yqlzkltaoa6016[address] [place], [place] [address]Dr.Yilan ChangCO2 [Moles/Vol]28.5 mmol/YPvvnjh83.0-32.0The [facility] CenterComment on above:Performed By: #### CMP ####[facility] Nmypjetcmq714[address] [place], [place] [address]Dr.Yilan ChangCreatinine [Mass/Vol]1.06 mg/dLCritically high0.55-1.02The [facility] CenterComment on above:Performed By: #### CMP ####[facility] [address]wal[address] [place] [id number].Yilan ChangEGFR-AF DJIBOUTIAN>60Normal>=60The [facility] CenterCombaraga [facility] on above:Performed By: #### CMP ####[facility] Hhyrvgosnq3063[address] [place], [place] [address]Dr.Yilan ChangEGFR-NON AF TIXSTCJH65 mL/min/1.14b3Qjvsfduzmp low>=60The [facility] CenterComment on above: Performed By: #### CMP ####[facility] Xlvrqymkdm[address] [place], [place] [address]Dr.Yilan ChangGlobulin (S) [Mass/Vol]3.5 g/dLNormalThe [facility] CenterCombaraga [facility] hospital on above:Performed By: #### CMP ####[facility] Ehiuiiwjwv0715[address] [place], [place] [address]Dr.Yilan ChangGlucose [Mass/Vol]79 mg/eKXjvlot31-998Pkz [facility] on above:Performed By: #### CMP ####[facility] Pcuwmuvlig6830[address] [place], [place] [address]Dr.Yilan ChangPotassium [Moles/Vol]4.2 mmol/LNormal3.5-5.1The [facility] CenterCombar[facility] hospital on above:Performed By: #### CMP ####[facility] Xzarcfmsfz6632[address] [place], [place] [address]Dr.Yilan ChangProtein [Mass/Vol]6.8 g/dLNormal6.4-8.2The [facility] CenterCombaraga [facility] hospital on above:Performed By: #### CMP ####[facility] Txazctybbl5[address] [place], [place] [address]Dr.Yilan ChangSodium [Moles/Vol]135 mmol/LCritically dtm893-302Wtp [facility] on above:Performed By: #### CMP ####[facility] Rubdpmnply6466[address] [place], [place] [address]Dr.Yilan ChangUrea nitrogen [Mass/Vol]16.0 mg/dLNormal7.0-18.0The [facility] Hospitalment on above: Performed By: #### CMP ####[facility] Ilmdjskmcv9[address] [place], [place] [address]Dr.Airam TripathiUrea nitrogen/Creatinine [Mass ratio] 15.1 mg/mgNoGood Samaritan HospitalComment on above:Performed By: #### CMP ####[facility] Aclmmiwudb[address] [place], [place] [address]Dr. Airam ChangXR CHEST 1 Von 91-29-3151LW CHEST 1 VNormalThe [facility] CenterPRBC LEUKOREDUCEDon 06-36-8618VYSH LEUKOREDUCEDCleveland Clinic Hillcrest HospitalComment on above:Performed By: #### PRBC ####[facility] Shngftfksh[address] [place], [place] [address]Dr. Airam TripathiCULTURE URINEon 70-62-9611XOJBHPY URINE NormalThe [facility] CenterComment on above:Performed By: #### URCX ####[facility] [address]aoqbbkubh[address] [place], [place] [address]Dr. Airam Tripathi OSMOLALITYon 80-93-9530Pioesszedd [Osmolality]282 mosm/mjUrilvi178-239Tuj [facility] CenterComment on above:Performed By: #### OSMO ####[facility] Dylfaglfdr[address] [address] [place], [place] [address]Dr. Airam TripathiCBC AUTO DIFF on [id number] #0.0 103/ulNormal0.0-0.1[facility] HospitalCombar[facility] memorial hospital on above: Performed By: #### CBC ####[facility] Bfjjkzsjle[address] [place], [place] [address]Dr.Airam TripathiBasophils/100 WBC (Bld)0.3 %Normal 0.2-2.0[facility] HospitalComment on above:Performed By: #### CBC ####[facility] Thfrbemsrg82[address] [place], [place] [address]Dr.Airam ChangEO # 0.2 103/ulNormal0.0-0.7The [facility] CenterCombar[facility] memorial hospital on above:Performed By: #### CBC ####[facility] Aczwtvaoos[address] [place], [place] [address]Dr. Airam ChangEosinophils/100 WBC (Bld)3.4 %Normal0.9-7.0The [facility] Comment on above:Performed By: #### CBC ####[facility] [address] [place] [address]Dr.Airam ChangErythrocyte distribution width (RBC) [Ratio]15.2 %Critically high11.0-15.0The [facility] CenterComment on above:Performed By: #### CBC ####[facility] G[address]jbjpllh[address] [place] [address]Dr.Selenalan ChangHematocrit (Bld) [Volume fraction]31.3 % Critically low36.0-48.0The [facility] CenterComment on above:Performed By: #### CBC ####[facility] Gurodjpjst[address] [place] [address]Dr. Airam ChangHemoglobin (Bld) [Mass/Vol]9.9 g/dLCritically low12.0-16.0The [facility] CenterComment on above:Performed By: #### CBC ####[facility] Qljbradapa22[address] [place], [place] [address]Dr.Yilan ChangIG #0.03 10e3/ulNormal0.00-0.03The [facility] CenterComment on above:Performed By: #### CBC ####[facility] Neuadksyjy[address] [place] [address]Dr. Airam ChangIG %0.4 %Normal0.0-0.5The [facility] CenterComment on above:Performed By: #### CBC ####[facility] Vwurhymlvl68[address] [place], [place] [address]Dr.Yilan ChangLYMPH #1.3 103/ulNormal1.2-3.8The [facility] Comment on above:Performed By: #### CBC ####[facility] Thneuqunro09[address] [place], [place] [address]Dr.Yilan ChangLymphocytes/100 WBC (Bld)19.0 %Critically low20.5-60.0The [facility] HospitalComment on above:Performed By: #### CBC ####[facility] Bjvubqjfaf[address] [place] [address]Dr.Airam TripathiMANUAL DIFF REQNONormalThe [facility] CenterComment on above: Performed By: #### CBC ####[facility] Uvmtdtjswj75[address] [place], [place] [address]Dr.Airam TripathiH (RBC) [Entitic mass]28.1 pgNormal 26.7-34.0The [facility] HospitalComment on above:Performed By: #### CBC ####[facility] Uhluwztded9084[address] [place], [place] [address]Dr. Airam TripathiHC (RBC) [Mass/Vol]31.6 g/nQCrwbyu41.9-35.2The [facility] Comment on above:Performed By: #### CBC ####[facility] Svlvhdeflv[address] [place], [place] [address]Dr.Airam TripathiV (RBC) [Entitic vol]88.9 fL Pdeqib21.0-99.0The [facility] CenterComment on above:Performed By: #### CBC ####[facility] Iuiggfsilu5665[address] [place], [place] [address]Dr. Aiarm DeuceMONO #0.6 103/ulNormal0.3-0.8The [facility] CenterComment on above: Performed By: #### CBC ####[facility] Bglsnfdral3[address] [place], [place] [address]Dr.Airam ChangMonocytes/100 WBC (Bld)9.0 %Normal 1.7-12.0The [facility] CenterComment on above:Performed By: #### CBC ####[facility] Rcjtqbpuum18[address] [place], [place] [address]Dr. Airam DeuceNEUT #4.5 103/ulNormal1.4-6.5The [facility] CenterComment on above: Performed By: #### CBC ####[facility] Ofdavllyqd5716[address] [place], [place] [address]Dr.Selenaneil TripathiNeutrophils/100 WBC (Bld)67.9 %Normal 43.0-75.0The [facility] CenterComment on above:Performed By: #### CBC ####[facility] Clgxdummra9196[address] [place], [place] [address]Dr. Selenaneil DeucePlatelet mean volume (Bld) [Entitic vol]9.1 fLCritically low9.5-13.5 The [facility] CenterComment on above:Performed By: #### CBC ####[facility] Kydylzuuae[address] [place], [place] [address]Dr.Airam TripathiPLT256 103/kwSxppqf013-099Fej [facility] CenterComment on above:Performed By: #### CBC ####[facility] Zssdhayxhk0775[address] [place], [place] [address]Dr. Airam TripathiRBC3.52 106/ulCritically low4.20-5.40The [facility] CenterComment on above:Performed By: #### CBC ####[facility] Mpvmtnfisy5027[address] [place], [place] [address]Dr.Airam TripathiWBC6.7 103/ulNormal4.0-11.0The [facility] CenterComment on above:Performed By: #### CBC ####[facility] Rxwllsbhvj3883[address] [place], [place] [address]Dr.Airam TripathiPROF 14(COMP METB)on 80-05-8054Yycxrvh [Mass/Vol]2.8 g/dLCritically low3.4-5.0The [facility] CenterComment on above:Performed By: #### CMP ####[facility] Xkzokrhntg5514[address] [place], [place] [address]Dr.Airam Tripathi Albumin/Globulin [Mass ratio]0.9 {ratio}NormalThe [facility] CenterComment on above:Performed By: #### CMP ####[facility] Lelkgbhmgr8120[address] [place], [place] [address]Dr.Airam TripathiALP [Catalytic activity/Vol]118 U/L Critically vcev31-894Edv [facility] CenterComment on above:Performed By: #### CMP ####[facility] Wxewexnlkt17[address] [place], [place] [address]Dr. Yilan ChangALT [Catalytic activity/Vol]23 U/TChrpsc20-08Hsa [facility] Comment on above:Performed By: #### CMP ####[facility] Uwtzkqemlj24[address] [place], [place] [address]Dr.Yineil ChangAnion gap [Moles/Vol]12.5 mmol/LNormalThe [facility] CenterComment on above:Performed By: #### CMP ####[facility] Bygfiledal05[address] [place], [place] [address]Dr. Yilan ChangAST [Catalytic activity/Vol]21 U/WVrkazs52-54Pvq [facility] Comment on above:Performed By: #### CMP ####[facility] Sltjagdzfw648[address] [place], [place] [address]Dr.Yilan ChangBilirubin [Mass/Vol]0.4 mg/dL Normal0.2-1.0The [facility] CenterComment on above:Performed By: #### CMP ####[facility] Lbivzfnipa1327[address] [place], [place] [address]Dr. Yilan ChangCalcium [Mass/Vol]8.2 mg/dLCritically low8.5-10.1The [facility] CenterComment on above:Performed By: #### CMP ####[facility] Vywjvvhcqj9[address] [place], [place] [address]Dr.Yilan ChangChloride [Moles/Vol]99 mmol/WTnwlue28-412Nwb [facility] CenterComment on above:Performed By: #### CMP ####[facility] Sfcftvtvwf1632[address] [place], [place] [address]Dr.Yilan ChangCO2 [Moles/Vol]24.9 mmol/WBtwpwy30.0-32.0The [facility] CenterComment on above:Performed By: #### CMP ####[facility] Piklwzrnlt2317[address] [place], [place] [address]Dr.Yilan ChangCreatinine [Mass/Vol]1.61 mg/dLCritically high0.55-1.02The [facility] CenterComment on above:Performed By: #### CMP ####[facility] Ehsdmaigve208[address] [place], [place] [address]Dr.Yilan ChangEGFR-AF NRAGBJSU79 mL/min/1.73m2 Critically low>=60The [facility] CenterComment on above:Performed By: #### CMP ####[facility] Wqpaasryct9539[address] [place], [place] [address]Dr. Airam ChangEGFR-NON AF RKFNHYRA76 mL/min/1.49y4Gdezfogcqr low>=60The [facility] CenterComment on above:Performed By: #### CMP ####[facility] Svkjxepopz4309[address] [place], [place] [address]Dr.Selenaneil DeuceGlobulin (S) [Mass/Vol]3.2 g/dLNormalThe [facility] CenterComment on above:Performed By: #### CMP ####[facility] Oqzhaesbai5412[address] [place], [place] [address]Dr.Airam TripathiGlucose [Mass/Vol]67 mg/dLCritically eqc50-903Nqa [facility] CenterComment on above:Performed By: #### CMP ####[facility] Ockevicobk8[address] [place], [place] [address]Dr.Airam TripathiPotassium [Moles/Vol]5.4 mmol/LCritically high3.5-5.1The [facility] CenterComment on above:Performed By: #### CMP ####[facility] Wmujykevnz955[address] [place], [place] [address]Dr.Airam TripathiProtein [Mass/Vol]6.0 g/dLCritically low 6.4-8.2The [facility] CenterComment on above:Performed By: #### CMP ####[facility] Ayobskpwbe2826[address] [place], [place] [address]Dr.Airam Tripathi Sodium [Moles/Vol]131 mmol/LCritically eni374-584Sys [facility] CenterComment on above:Performed By: #### CMP ####[facility] Cmilzadlpl6310[address] [place], [place] [address]Dr.Airam TripathiUrea nitrogen [Mass/Vol]43.0 mg/dL Critically high7.0-18.0The [facility] CenterComment on above:Performed By: #### CMP ####[facility] Qcxienupvg823[address] [place], [place] [address]Dr. Yilan ChangUrea nitrogen/Creatinine [Mass ratio]26.7 mg/mgNormalThe [facility] CenterComment on above:Performed By: #### CMP ####[facility] Bdaoytwhit9538[address] [place], [place] [address]Dr.Yilan ChangCBC AUTO DIFFon 79-76-6549NBKC #0.0 103/ulNormal0.0-0.1The [facility] CenterComment on above: Performed By: #### CBC ####[facility] Xjuyydwdso5674[address] [place], [place] [address]Dr.Yilan ChangBasophils/100 WBC (Bld)0.3 %Normal 0.2-2.0The [facility] CenterComment on above:Performed By: #### CBC ####[facility] Rvbiewrumd9829[address] [place], [place] [address]Dr.Yilan ChangEO # 0.2 103/ulNormal0.0-0.7The [facility] CenterComment on above:Performed By: #### CBC ####[facility] Mtkodxglwc4190[address] [place], [place] [address]Dr. Yilan ChangEosinophils/100 WBC (Bld)3.1 %Normal0.9-7.0The [facility] Comment on above:Performed By: #### CBC ####[facility] Pyitlbjvrx6328[address] [place], [place] [address]Dr.Yilan ChangErythrocyte distribution width (RBC) [Ratio]15.0 %Cpsygi38.0-15.0The [facility] CenterComment on above: Performed By: #### CBC ####[facility] Anupjnviyl8689[address] [place], [place] [address]Dr.Selenalan ChangHematocrit (Bld) [Volume fraction]30.9 % Critically low36.0-48.0The [facility] CenterComment on above:Performed By: #### CBC ####[facility] Ybsmzczdbv6355[address] [place], [place] [address]Dr. Selenalan ChangHemoglobin (Bld) [Mass/Vol]10.1 g/dLCritically low12.0-16.0The [facility] CenterComment on above:Result Comment: PATIENT RECIEVED 2 UNITS PRBC'SPerformed By: #### CBC ####[facility] Rlcstuctge4323[address] [place], [place] [address]Dr.Airam TripathiIG #0.03 10e3/ulNormal0.00-0.03The [facility] CenterComment on above:Performed By: #### CBC ####[facility] Mcpxtbzaay3837[address] [place], [place] [address]Dr.Airam TripathiIG %0.4 %Normal 0.0-0.5The [facility] HospitalComment on above:Performed By: #### CBC ####[facility] Fhswvkrdla162[address] [place], [place] [address]Dr.Airam DossH #1.1 103/ulCritically low1.2-3.8The [facility] CenterComment on above:Performed By: #### CBC ####[facility] Kmicburyij299[address] [place], [place] [address]Dr.Airam Dosshocytes/100 WBC (Bld)14.4 %Critically low20.5-60.0 The [facility] CenterComment on above:Performed By: #### CBC ####[facility] Fqkdykgonr8824[address] [place], [place] [address]Dr.Airam TripathiMANUAL DIFF REQNONormalThe [facility] CenterComment on above:Performed By: #### CBC ####[facility] Pdocddfrtc0729[address] [place], [place] [address]Dr. Airam TripathiST. [facility] (RBC) [Entitic mass]28.9 foKylzdf78.7-34.0The [facility] Comment on above:Performed By: #### CBC ####[facility] Znibltvkdy057[address] [place], [place] [address]Dr.Airam TripathiHC (RBC) [Mass/Vol]32.7 g/dL Nacyyt12.9-35.2The [facility] CenterComment on above:Performed By: #### CBC ####[facility] Ocahuffuix7395[address] [place], [place] [address]Dr. Airam TripathiMCV (RBC) [Entitic vol]88.3 xYNcwndn09.0-99.0The [facility] Comment on above:Performed By: #### CBC ####[facility] Zwbhlkqten6180[address] [place], [place] [address]Dr.Airam TripathiMONO #0.6 103/ulNormal0.3-0.8 The [facility] CenterComment on above:Performed By: #### CBC ####[facility] Xtyvdonyhv5301[address] [place], [place] [address]Dr.Airam Tripathi Monocytes/100 WBC (Bld)7.8 %Normal1.7-12.0The [facility] CenterComment on above: Performed By: #### CBC ####[facility] Fglbroldew3377[address] [place], [place] [address]Dr.Airam TripathiNEUT #5.5 103/ulNormal1.4-6.5The [facility] CenterComment on above:Performed By: #### CBC ####[facility] Asrtsrfxzd9912[address] [place], [place] [address]Dr.Airam TripathiNeutrophils/100 WBC (Bld)74.0 %Fymsui03.0-75.0The [facility] CenterComment on above:Performed By: #### CBC ####[facility] Ythrvxsndw4580[address] [place], [place] [address]Dr.Airam TripathiPlatelet mean volume (Bld) [Entitic vol]9.2 fLCritically low 9.5-13.5The [facility] CenterComment on above:Performed By: #### CBC ####[facility] Wmwjuwiqfj9580[address] [place], [place] [address]Dr. Airam TripathiPLT275 103/kjGtkpix944-940Otl [facility] CenterComment on above: Performed By: #### CBC ####[facility] Acijdoaogi346[address] [place], [place] [address]Dr.Airam TripathiRBC3.50 106/ulCritically low4.20-5.40The [facility] CenterComment on above:Performed By: #### CBC ####[facility] Krydbwsykw[address] [place], [place] [address]Dr.Yilan ChangWBC7.4 103/ul Normal4.0-11.0The [facility] CenterComment on above:Performed By: #### CBC ####[facility] Urjgfneinp[address] [place] [address]Dr. Yilan ChangBASO #0.0 103/ulNormal0.0-0.1The [facility] CenterComment on above: Performed By: #### CBC ####[facility] Ullkjkqfmv8014[address] [place], [place] [address]Dr.Yilan ChangBasophils/100 WBC (Bld)0.4 %Normal 0.2-2.0The [facility] CenterComment on above:Performed By: #### CBC ####[facility] Mhahojlpez0825[address] [place], [place] [address]Dr.Yilan ChangEO # 0.2 103/ulNormal0.0-0.7The [facility] CenterComment on above:Performed By: #### CBC ####[facility] Hygbtsdapb5329[address] [place], [place] [address]Dr. Yilan ChangEosinophils/100 WBC (Bld)4.5 %Normal0.9-7.0The [facility] Comment on above:Performed By: #### CBC ####[facility] Timjqwvork9378[address] [place], [place] [address]Dr.Selenalan ChangErythrocyte distribution width (RBC) [Ratio]15.1 %Critically high11.0-15.0The [facility] CenterComment on above:Performed By: #### CBC ####[facility] Jnvsesbrtl0224[address] [place], [place] [address]Dr.Selenalan ChangHematocrit (Bld) [Volume fraction]23.0 % Critically low36.0-48.0The [facility] CenterComment on above:Performed By: #### CBC ####[facility] Gjehywhzgm5412[address] [place], [place] [address]Dr. Airam ChangHemoglobin (Bld) [Mass/Vol]7.2 g/dLCritically low12.0-16.0The [facility] CenterComment on above:Performed By: #### CBC ####[facility] R[address]hyiekz[address] [place] [address]Dr.Airam TripathiIG #0.02 10e3/ulNormal0.00-0.03The [facility] CenterComment on above:Performed By: #### CBC ####[facility] Inusguadpm25[address] [place] [address]Dr. Airam ChangIG %0.4 %Normal0.0-0.5The [facility] CenterComment on above:Performed By: #### CBC ####[facility] Yzmzvfnekd[address] [place], [place] [address]Dr.Airam DeuceLYMPH #1.0 103/ulCritically low1.2-3.8The [facility] CenterComment on above:Performed By: #### CBC ####[facility] Uofcdouyeu7026[address] [place], [place] [address]Dr.Selenaneil TripathiLymphocytes/100 WBC (Bld)22.5 %Xuxrxz61.5-60.0The [facility] Hospitalment on above:Performed By: #### CBC ####[facility] Uuektzcmpc564[address] [place], [place] [address]Dr.Airam TripathiMANUAL DIFF REQNONormalThe [facility] CenterComment on above:Performed By: #### CBC ####[facility] Sskxfpwsbo[address] [place], [place] [address]Dr.Airam TripathiH (RBC) [Entitic mass]28.3 pgNormal 26.7-34.0The [facility] CenterComment on above:Performed By: #### CBC ####[facility] Xalwsosphz358[address] [place], [place] [address]Dr. Airam TripathiMCHC (RBC) [Mass/Vol]31.3 g/dMMipngu04.9-35.2The [facility] Comment on above:Performed By: #### CBC ####[facility] Xhzltatkhl2785[address] [place], [place] [address]Dr.Airam TripathiMCV (RBC) [Entitic vol]90.6 fL Whxcvj60.0-99.0The [facility] HospitalComment on above:Performed By: #### CBC ####[facility] Uzyqjzqjdv2393[address] [place], [place] [address]Dr. Airam TripathiMONO #0.5 103/ulNormal0.3-0.8The [facility] HospitalComment on above: Performed By: #### CBC ####[facility] Tsvipwkprp4183[address] [place], [place] [address]Dr.Selenalan ChangMonocytes/100 WBC (Bld)9.7 %Normal 1.7-12.0The [facility] CenterComment on above:Performed By: #### CBC ####[facility] Mzlsaqdcgw9927[address] [place], [place] [address]Dr. Airam TripathiNEUT #2.9 103/ulNormal1.4-6.5The [facility] CenterComment on above: Performed By: #### CBC ####[facility] Vctbnnqbbh9056[address] [place], [place] [address]Dr.Selenalan ChangNeutrophils/100 WBC (Bld)62.5 %Normal 43.0-75.0The [facility] HospitalComment on above:Performed By: #### CBC ####[facility] Xinokmjyjv5913[address] [place], [place] [address]Dr. Airam TripathiPlatelet mean volume (Bld) [Entitic vol]8.9 fLCritically low9.5-13.5 The [facility] CenterComment on above:Performed By: #### CBC ####[facility] Iuzvfdizze3467[address] [place], [place] [address]Dr.Selenalan FjbbeRQI911 103/jpWvqvft264-759Hmk [facility] HospitalComment on above:Performed By: #### CBC ####[facility] Vtcodjgtat5076[address] [place], [place] [address]Dr. Selenalan ChangRBC2.54 106/ulCritically low4.20-5.40The [facility] CenterComment on above:Performed By: #### CBC ####[facility] Zzseypfzzn9036[address] [place], [place] [address]Dr.Selenalan ChangWBC4.6 103/ulNormal4.0-11.0[facility] HospitalComment on above:Performed By: #### CBC ####[facility] [address]bovvbaco[address] [place] [address]Dr.Airam ChangOSMOLALITYon 33-17-5513Pkjuknqsoq [Osmolality]279 mosm/kqPpierc121-353IqbParkview Health Bryan Hospital Comment on above:Performed By: #### OSMO ####[facility] Rypkhyuied[address] [place], [place] [address]Dr. Airam ChangPOINT OF CARE GLUCOSEon 00-42-9914Pcciaxx [Mass/Vol]72 mg/dLCritically dsn78-812EiuParkview Health Bryan Hospital Comment on above:Performed By: #### POCGLUC ####[facility] Ywwjhijkoe1030[address] [place], [place] [address]Dr. Airam ChangGlucose [Mass/Vol]102 mg/dL Ladcgm29-356TszParkview Health Bryan HospitalComment on above:Performed By: #### POCGLUC ####[facility] Mrzufjxssu6227[address] [place], [place] [address]Dr. Airam ChangGlucose [Mass/Vol]165 mg/dLCritically tzuv13-196TikParkview Health Bryan Hospital Comment on above:Performed By: #### POCGLUC ####[facility] Oqkwrpndks12[address] [place], [place] [address]Dr. Airam ChangPROF 14(COMP METB)on 01-59-1047Ntcbeyx [Mass/Vol]2.6 g/dLCritically low3.4-5.0[facility] Comment on above:Performed By: #### CMP ####[facility] Ubzhzcqoij4566[address] [place], [place] [address]Dr.Airam ChangAlbumin/Globulin [Mass ratio] 0.9 {ratio}NormalParkview Health Bryan HospitalComment on above:Performed By: #### CMP ####[facility] Nkuocpqoqq8444[address] [place], [place] [address]Dr. Airam ChangALP [Catalytic activity/Vol]107 U/IOyzbrn11-132YeaParkview Health Bryan Hospital Comment on above:Performed By: #### CMP ####[facility] [address]yuewmlm[address] [place] [address]Dr.Yilan ChangALT [Catalytic activity/Vol]22 U/UCgkxpf14-02You [facility] CenterComment on above:Performed By: #### CMP ####[facility] Qrekotkrqg029[address] [place], [place] [address]Dr. Yilan ChangAnion gap [Moles/Vol]10.0 mmol/LNormalThe [facility] CenterComment on above:Performed By: #### CMP ####[facility] Qkydwcrqrc414[address] [place], [place] [address]Dr.Yilan ChangAST [Catalytic activity/Vol]19 U/LNormal 15-37The [facility] CenterComment on above:Performed By: #### CMP ####[facility] Utxtjysist5018[address] [place], [place] [address]Dr.Yilan Tripathi Bilirubin [Mass/Vol]0.2 mg/dLNormal0.2-1.0The [facility] CenterComment on above: Performed By: #### CMP ####[facility] Rwivcvqrtl7180[address] [place], [place] [address]Dr.Yilan ChangCalcium [Mass/Vol]8.1 mg/dLCritically low8.5-10.1The [facility] CenterComment on above:Performed By: #### CMP ####[facility] Chjckqyxmn9[address] [place], [place] [address]Dr. Yilan ChangChloride [Moles/Vol]100 mmol/FSrtpxn30-251Jne [facility] Comment on above:Performed By: #### CMP ####[facility] Ljmokudlxa0988[address] [place], [place] [address]Dr.Yilan ChangCO2 [Moles/Vol]26.2 mmol/L Nwaqug13.0-32.0The [facility] CenterComment on above:Performed By: #### CMP ####[facility] Hqozdkrphv3764[address] [place], [place] [address]Dr. Yilan ChangCreatinine [Mass/Vol]1.90 mg/dLCritically high0.55-1.02The [facility] CenterComment on above:Performed By: #### CMP ####[facility] Qq[address]xfcpc[address] [place] [address]Dr.Yilan ChangEGFR-AF MHJAWUHJ95 mL/min/1.93x9Pzpexthcez low>=60The [facility] CenterCombaraga [facility] memorial hospital on above: Performed By: #### CMP ####[facility] Jstivnxksu27[address] [place], [place] [address]Dr.Yilan ChangEGFR-NON AF YQLOUXMZ56 mL/min/1.73m2 Critically low>=60The [facility] CenterComment on above:Performed By: #### CMP ####[facility] Wcrcskbukc[address] [place], [place] [address]Dr. Yilan ChangGlobulin (S) [Mass/Vol]2.8 g/dLNormalThCommunity Memorial HospitalComment on above:Performed By: #### CMP ####[facility] Fbzdwuryii37[address] [place], [place] [address]Dr.Yilan ChangGlucose [Mass/Vol]115 mg/dLCritically sslx91-330Oyq [facility] CenterCombaraga county memorial hospital on above:Performed By: #### CMP ####[facility] Sqhnygllmy7[address] [place], [place] [address]Dr. Yilan ChangPotassium [Moles/Vol]5.2 mmol/LCritically high3.5-5.1The [facility] CenterCombaraga county memorial hospital on above:Performed By: #### CMP ####[facility] Igcqmjbrgd[address] [place], [place] [address]Dr.Yilan ChangProtein [Mass/Vol]5.4 g/dLCritically low6.4-8.2The [facility] CenterCombaraga county memorial hospital on above: Performed By: #### CMP ####[facility] Jyxfugnsjv[address] [place], [place] [address]Dr.Yilan ChangSodium [Moles/Vol]131 mmol/LCritically bxg226-620Rur [facility] CenterCombaraga county memorial hospital on above:Performed By: #### CMP ####[facility] Iyykzplrmc[address] [place], [place] [address]Dr. Yilan ChangUrea nitrogen [Mass/Vol]41.0 mg/dLCritically high7.0-18.0The [facility] CenterComment on above:Performed By: #### CMP ####[facility] Qmnzruqkhn[address] [place], [place] [address]Dr.Airam TripathiUrea nitrogen/Creatinine [Mass ratio]21.6 mg/mgNoGood Samaritan HospitalComment on above:Performed By: #### CMP ####[facility] Ctpwzrtelb70[address] [place], [place] [address]Dr.Yilan ChangTYPE AND SCREENon 70-83-4196MXOO AND SCREENNegativeNoGood Samaritan HospitalComment on above:Performed By: #### TNS ####[facility] Eerdtlzkfu45[address] [place], [place] [address]Dr. Selenaneil DeuceCBC AUTO DIFFon 28-76-4701XFWK #0.0 103/ulNormal0.0-0.1The [facility] CenterCombaraga [facility] on above:Performed By: #### CBC ####[facility] Fbrdbrnuly12[address] [place], [place] [address]Dr.Selenaneil ChangBasophils/100 WBC (Bld)0.5 %Normal0.2-2.0[facility] on above:Performed By: #### CBC ####[facility] Jyeehobjve40[address] [place], [place] [address]Dr.Selenalan ChangEO #0.2 103/ulNormal0.0-0.7The [facility] CenterCombaraga county memorial hospital on above:Performed By: #### CBC ####[facility] Pcrfeeefnb87[address] [place], [place] [address]Dr.Airam ChangEosinophils/100 WBC (Bld)3.2 %Normal 0.9-7.0The [facility] CenterComment on above:Performed By: #### CBC ####[facility] Zqwrwjgzge3787[address] [place], [place] [address]Dr.Airam Tripathi Erythrocyte distribution width (RBC) [Ratio]15.2 %Critically high11.0-15.0The [facility] CenterComment on above:Performed By: #### CBC ####[facility] Ywipjvondz[address] [place], [place] [address]Dr.Airam ChangHematocrit (Bld) [Volume fraction]24.7 %Critically low36.0-48.0The [facility] CenterComment on above:Performed By: #### CBC ####[facility] Frswfpegom7433[address] [place], [place] [address]Dr.Airam TripathiHemoglobin (Bld) [Mass/Vol]7.6 g/dL Critically low12.0-16.0The [facility] CenterComment on above:Performed By: #### CBC ####[facility] Zzhlbuqwan26[address] [place], [place] [address]Dr. Airam TripathiIG #0.02 10e3/ulNormal0.00-0.03The [facility] CenterComment on above: Performed By: #### CBC ####[facility] Ctnmigdsmt0801[address] [place], [place] [address]Dr.Airam TripathiIG %0.3 %Normal0.0-0.5The [facility] CenterComment on above:Performed By: #### CBC ####[facility] Vmtbidukmk7056[address] [place], [place] [address]Dr.Airam TripathiLYMPH #1.1 103/ulCritically low1.2-3.8The [facility] CenterComment on above:Performed By: #### CBC ####[facility] Xounuzzqeb899[address] [place], [place] [address]Dr.Airam Tripathimphocytes/100 WBC (Bld)18.4 %Critically low20.5-60.0The [facility] CenterComment on above:Performed By: #### CBC ####[facility] Kcpzytluga[address] [place], [place] [address]Dr.Airam TripathiMANUAL DIFF REQ NONormalThe [facility] CenterComment on above:Performed By: #### CBC ####[facility] Wwhkdjobmn8247[address] [place], [place] [address]Dr. Airam TripathiST. LUKE'[facility] (RBC) [Entitic mass]28.5 iaGodeoj84.7-34.0The [facility] Comment on above:Performed By: #### CBC ####[facility] Qijklswdfu7013[address] [place], [place] [address]Dr.Airam TripathiMCHC (RBC) [Mass/Vol]30.8 g/dL Qsusnj45.9-35.2The [facility] CenterComment on above:Performed By: #### CBC ####[facility] Z[address]ynjv[address] [place] [address]Dr. Airam TripathiMCV (RBC) [Entitic vol]92.5 fIOosqpq52.0-99.0The [facility] Comment on above:Performed By: #### CBC ####[facility] Gqkasjtguf9028[address] [place], [place] [address]Dr.Airam TripathiMONO #0.6 103/ulNormal0.3-0.8 The [facility] HospitalComment on above:Performed By: #### CBC ####[facility] Gemevanezs5195[address] [place], [place] [address]Dr.Airam Tripathi Monocytes/100 WBC (Bld)10.0 %Normal1.7-12.0The [facility] CenterComment on above:Performed By: #### CBC ####[facility] Zssfjgyvcl360[address] [place], [place] [address]Dr.Airam TripathiNEUT #4.0 103/ulNormal1.4-6.5The [facility] CenterComment on above:Performed By: #### CBC ####[facility] Keetoxrgxl1427[address] [place], [place] [address]Dr.Airam TripathiNeutrophils/100 WBC (Bld)67.6 %Oezuuu98.0-75.0The [facility] HospitalComment on above:Performed By: #### CBC ####[facility] Ivdihjrjvz7204[address] [place], [place] [address]Dr.Airam TripathiPlatelet mean volume (Bld) [Entitic vol]8.8 fLCritically low 9.5-13.5The [facility] CenterComment on above:Performed By: #### CBC ####[facility] Gqnuppdgia9674[address] [place], [place] [address]Dr. Airam QroffEQS703 103/rbBzdquw284-275Iqy [facility] CenterComment on above: Performed By: #### CBC ####[facility] Ayzfpqmmze[address] [place] [address]Dr.Airam ChangRBC2.67 106/ulCritically low4.20-5.40The [facility] CenterComment on above:Performed By: #### CBC ####[facility] Qlqlzlkiwr11[address] [place] [address]Dr.Airam TripathiWBC5.9 103/ul Normal4.0-11.0The [facility] CenterComment on above:Performed By: #### CBC ####[facility] Jqewapahzd1158[address] [place], [place] [address]Dr. Airam ChangCovid-19 PCR (CVDTBH)on 98-05-0724FATF-CoV-2 (COVID-19) RNA MIKE+probe Ql (Unsp spec)Not detectedNormalNOT DETECTEDThe [facility] on above:Result Comment: When diagnostic testing is negative, the [...] for this test is supported by the Manager Organizational of Health and Human Service's declaration that circumstances exist to justify the emergency use of in vitro diagnostics for the detection and/or diagnosis of the virus that causes COVID-19. This EUA will remain in effect for the duration of the COVID-19declaration justifying emergency of IVDs, unless it is terminated or revoked by the FDA (after which the test may no longer be used).Performed By: #### CVDTBH ####[facility] Y[address]ougajpif[address] [place] [address]Dr. Airam TripathiMAGNESIUMon 29-81-0154Xlgothzad [Mass/Vol]1.7 mg/dLCritically low1.8-2.4The [facility] on above: Performed By: #### MG, CMP ####[facility] Qqhintxweg[address] [place], [place] [address]Dr. Airam TripathiPOINT OF CARE GLUCOSEon 10-05-2022 Glucose [Mass/Vol]92 mg/dKNtsbbn94-143Wur [facility] on above: Performed By: #### POCGLUC ####[facility] Bxfjtjxcrx23[address] [place] [address]Dr. Airam ChangPROF 14(COMP METB)on 92-92-3269Mbggyda [Mass/Vol]2.9 g/dLCritically low3.4-5.0The [facility] CenterComment on above: Performed By: #### MG, CMP ####[facility] Sxbrkhmyin[address] [place] [address]Dr. Airam ChangAlbumin/Globulin [Mass ratio]0.9 {ratio}NormalThe [facility] on above:Performed By: #### MG, CMP ####[facility] Fjegmslvqv3690[address] [place], [place] [address]Dr. Airam ChangALP [Catalytic activity/Vol]122 U/LCritically zqrn41-517Bev [facility] on above:Performed By: #### MG, CMP ####[facility] Ojtuoonpbi[address] [place], [place] [address]Dr. Selenalan ChangALT [Catalytic activity/Vol]24 U/MYdkscw84-36Lxb [facility] on above:Performed By: #### MG, CMP ####[facility] Bqnglwgwys485[address] [place] [address]Dr. Airam ChangAnion gap [Moles/Vol]13.1 mmol/LNormalThe [facility] CenterCombaraga county memorial hospital on above:Performed By: #### MG, CMP ####[facility] Xdymubawbf4438[address] [place], [place] [address]Dr. Selenalan ChangAST [Catalytic activity/Vol]21 U/RZaaarf15-69Rwf [facility] on above:Performed By: #### MG, CMP ####[facility] Zjejidmfzr4538[address] [place], [place] [address]Dr. Airam ChangBilirubin [Mass/Vol]0.2 mg/dLNormal0.2-1.0The [facility] HospitalComment on above:Performed By: #### MG, CMP ####[facility] Akbwrtdlik238[address] [place], [place] [address]Dr. Yilan ChangCalcium [Mass/Vol]8.4 mg/dLCritically low8.5-10.1The [facility] CenterComment on above: Performed By: #### MG, CMP ####[facility] Czduywzxsw7[address] [place], [place] [address]Dr. Yilan ChangChloride [Moles/Vol]102 mmol/LNormal 98-107The [facility] CenterComment on above:Performed By: #### MG, CMP ####[facility] Qrvyjlnokv2869[address] [place], [place] [address]Dr. Yilan ChangCO2 [Moles/Vol]23.2 mmol/ZFimnzg26.0-32.0The [facility] CenterComment on above:Performed By: #### MG, CMP ####[facility] Ozeitaeltd5[address] [place], [place] [address]Dr. Yilan ChangCreatinine [Mass/Vol]1.96 mg/dL Critically high0.55-1.02The [facility] CenterComment on above:Performed By: #### MG, CMP ####[facility] Slpunnnbna15[address] [place], [place] [address]Dr. Yilan ChangEGFR-AF SNWKNVFQ02 mL/min/1.30s4Inbcoyaaoo low>=60The [facility] CenterComment on above:Performed By: #### MG, CMP ####[facility] Iwqvngbwew2175[address] [place], [place] [address]Dr. Yilan ChangEGFR- NON AF USXQAEMZ91 mL/min/1.86n4Sskzdozjai low>=60The [facility] CenterComment on above:Performed By: #### MG, CMP ####[facility] Syevazseiy6[address] [place], [place] [address]Dr. Yilan ChangGlobulin (S) [Mass/Vol]3.2 g/dLNormal The [facility] CenterComment on above:Performed By: #### MG, CMP ####[facility] Drhugmnfgx524[address] [place], [place] [address]Dr. Airam Tripathi Glucose [Mass/Vol]68 mg/dLCritically don31-114Hcd [facility] CenterComment on above:Performed By: #### MG, CMP ####[facility] Cmgosanxta[address] [place] [address]Dr. Airam TripathiPotassium [Moles/Vol]5.3 mmol/L Critically high3.5-5.1The [facility] CenterComment on above:Performed By: #### MG, CMP ####[facility] Omsuxjfzta[address] [place], [place] [address]Dr. Airam TripathiProtein [Mass/Vol]6.1 g/dLCritically low6.4-8.2The [facility] CenterComment on above:Performed By: #### MG, CMP ####[facility] Oltarpfosu4590[address] [place], [place] [address]Dr. Selneaneil ChangSodium [Moles/Vol]133 mmol/LCritically jhu641-942Cvm [facility] CenterComment on above: Performed By: #### MG, CMP ####[facility] Wwckdfgcrq9[address] [place], [place] [address]Dr. Airam ChangUrea nitrogen [Mass/Vol]39.0 mg/dL Critically high7.0-18.0The [facility] CenterComment on above:Performed By: #### MG, CMP ####[facility] Cjicxafift[address] [place], [place] [address]Dr. Selenaneil ChangUrea nitrogen/Creatinine [Mass ratio]19.9 mg/mgNormalThe [facility] CenterComment on above:Performed By: #### MG, CMP ####[facility] Ipprndrvol7488[address] [place], [place] [address]Dr. Selenaneil Tripathi SODIUM RANDOM URINEon 25-55-6799Cqavek (U) [Moles/Vol]37 mmol/JCacguq01-66Sxd [facility] CenterComment on above:Performed By: #### NICKOLAS ####[facility] Krkrzkgtkh7975[address] [place], [place] [address]Dr.Airam TripathiUA RANDOM W/MICROSCOPICon 35-78-5807CMWZPJQFPZHGMKxanpergOHLB SEENThe [facility] Comment on above:Performed By: #### UAMIC ####[facility] Korwsuitqy8078[address] [place], [place] [address]Dr. Yilan ChangBilirubin Ql (U)Negative NormalNEGATIVEParkview Health Bryan HospitalComment on above:Performed By: #### UAMIC ####[facility] Kczjvuqmms8365[address] [place], [place] [address]Dr. Yilan ChangCASTSEENAbnormalNONE SEENThe [facility] CenterComment on above: Performed By: #### UAMIC ####[facility] Rtodhxsiym[address] [place], [place] [address]Dr. Yilan ChangClarity (U)CLEARNormalCLEARParkview Health Bryan HospitalComment on above:Performed By: #### UAMIC ####[facility] Gndgakyaof4[address] [place], [place] [address]Dr. Yilan ChangColor (U) YELLOWNormalYELLOWParkview Health Bryan HospitalComment on above:Performed By: #### UAMIC ####[facility] Qafcivffcd5688[address] [place], [place] [address]Dr. Yilan ChangCrystals LM Nom (Urine sed)NONE SEENNormalNONE SEENParkview Health Bryan HospitalComment on above:Performed By: #### UAMIC ####[facility] Phxppbhlvm217[address] [place], [place] [address]Dr. Yilan ChangEpithelial cells LM Ql (Urine sed)RARENormalNONE SEEN /RAREThe [facility] CenterComment on above:Performed By: #### UAMIC ####[facility] Hengniqlzd3547[address] [place], [place] [address]Dr. Yilan ChangGlucose Ql (U)NegativeNormalNEGATIVEBellevue Hospital HospitalComment on above:Performed By: #### UAMIC ####[facility] Luryjwjuob1439[address] [place], [place] [address]Dr. Yilan Tripathi Hemoglobin Ql (U)NegativeNormalNEGATIVEParkview Health Bryan HospitalComment on above: Performed By: #### UAMIC ####[facility] Affoginmak0786[address] [place], [place] [address]Dr. Yilan ChangHYALINE CASTRARENormalThe Sophie HospitalComment on above:Performed By: #### UAMIC ####[facility] Ly[address]ioeyugp[address] [place] [address]Dr. Yilan ChangKetones Ql (U) TRACEAbnormalNEGATIVEThe [facility] HospitalComment on above:Performed By: #### UAMIC ####[facility] Fsiygvfzjv[address] [place], [place] [address]Dr. Yilan ChangLEUKOCYTESNegativeNormalNEGATIVEThe [facility] HospitalComment on above:Performed By: #### UAMIC ####[facility] Zydhzanyfb4608[address] [place], [place] [address]Dr. Airam TripathiMUCOUSNONE SEENNormalNONE SEENParkview Health Bryan HospitalComment on above:Performed By: #### UAMIC ####[facility] Iyzrmeenlc8[address] [place], [place] [address]Dr. Airam ChangNitrite Ql (U)NegativeNormalNEGATIVEThe [facility] HospitalComment on above:Performed By: #### UAMIC ####[facility] Aiifnolpqm6189[address] [place], [place] [address]Dr. Airam ChangpH (U)5.0 [pH]Normal5-9The [facility] CenterComment on above:Performed By: #### UAMIC ####[facility] Almkxlomuc6760[address] [place], [place] [address]Dr. Selenalan PrwhmDOS2-1Qrmjpg6-5Sme [facility] Comment on above:Performed By: #### UAMIC ####[facility] Wkvlkykukg3675[address] [place], [place] [address]Dr. Airam TripathiSPEC GRAVITY1.015Normal 1.005-<=1.025The [facility] CenterComment on above:Performed By: #### UAMIC ####[facility] Fbddyizjez0063[address] [place], [place] [address]Dr. Selenalan DeuceUA PROTEINNegativeNormalNEGATIVE/ TRACEThe [facility] HospitalComment on above:Performed By: #### UAMIC ####[facility] Qdmtzeahwx7417[address] [place], [place] [address]Dr. Yilan ChangUrobilinogen Qn (U)0.2 {Ligia'U}/dL Normal0.2 - 1.0The [facility] CenterComment on above:Performed By: #### UAMIC ####[facility] Ngqfiriwag[address] [place] [address]Dr. Airam ChangWBCNONE SEENNormalNONE SEENThe [facility] CenterComment on above: Performed By: #### UAMIC ####[facility] P[address]ujakpkj[address] [place], [place] [address]Dr. Airam ChangCBC AUTO DIFFon 17-88-7313GQMN #0.0 103/ulNormal0.0-0.1The [facility] CenterCombaraga county memorial hospital on above:Performed By: #### CBC ####[facility] Hhfxkgvkkp6940[address] [place], [place] [address]Dr. Airam ChangBasophils/100 WBC (Bld)0.3 %Normal0.2-2.0The [facility] on above:Performed By: #### CBC ####[facility] Peywroduky1526[address] [place], [place] [address]Dr.Selenalan ChangEO #0.2 103/ulNormal0.0-0.7The [facility] on above:Performed By: #### CBC ####[facility] Cppqxlewad6607[address] [place], [place] [address]Dr.Airam ChangEosinophils/100 WBC (Bld)3.2 %Normal0.9-7.0The [facility] Hospitalment on above:Performed By: #### CBC ####[facility] Cfuzzdswbd0113[address] [place], [place] [address]Dr.Airam ChangErythrocyte distribution width (RBC) [Ratio]15.1 %Critically high11.0-15.0The [facility] on above:Performed By: #### CBC ####[facility] Pwcnsedibz9211[address] [place], [place] [address]Dr. Airam ChangHematocrit (Bld) [Volume fraction]27.6 %Critically low36.0-48.0The [facility] CenterComment on above:Performed By: #### CBC ####[facility] Vdmxpalghg[address] [place] [address]Dr.Airam TripathiHemoglobin (Bld) [Mass/Vol]8.7 g/dLCritically low12.0-16.0The [facility] HospitalComment on above:Performed By: #### CBC ####[facility] Gfkhmuhpkq7278[address] [place], [place] [address]Dr.Airam ChangIG #0.03 10e3/ulNormal0.00-0.03The [facility] CenterComment on above:Performed By: #### CBC ####[facility] Bzcstokrsu6093[address] [place], [place] [address]Dr.Airam DeuceIG %0.4 %Normal 0.0-0.5The [facility] CenterComment on above:Performed By: #### CBC ####[facility] Zkbeoryvnc987[address] [place], [place] [address]Dr.Airam DeuceLYMPH #1.2 103/ulNormal1.2-3.8The [facility] CenterComment on above:Performed By: #### CBC ####[facility] Jitepiexzt7783[address] [place], [place] [address]Dr.Airam TripathiLymphocytes/100 WBC (Bld)16.4 %Critically low20.5-60.0The [facility] CenterComment on above:Performed By: #### CBC ####[facility] Nvxuaskzvz299[address] [place], [place] [address]Dr.Airam TripathiMANUAL DIFF REQ NONormalThe [facility] CenterComment on above:Performed By: #### CBC ####[facility] Xxsduydsxu109[address] [place], [place] [address]Dr. Airam TripathiST. LUKE'[facility] (RBC) [Entitic mass]28.5 qnXxdpby09.7-34.0The [facility] Comment on above:Performed By: #### CBC ####[facility] Dgvaqinllh0826[address] [place], [place] [address]Dr.Airam TripathiUPSTATE [facility] (RBC) [Mass/Vol]31.5 g/dL Fiwprf52.9-35.2The [facility] CenterComment on above:Performed By: #### CBC ####[facility] Jmiidrjsgq6785[address] [place], [place] [address]Dr. Airam TripathiMCV (RBC) [Entitic vol]90.5 wPKvmzxh11.0-99.0The [facility] Comment on above:Performed By: #### CBC ####[facility] Knpesfhwht4976[address] [place], [place] [address]Dr.Airam TripathiMONO #0.5 103/ulNormal0.3-0.8 The [facility] HospitalComment on above:Performed By: #### CBC ####[facility] Paxtvatole12[address] [place], [place] [address]DrBroderick Tripathi Monocytes/100 WBC (Bld)7.3 %Normal1.7-12.0The [facility] HospitalComment on above: Performed By: #### CBC ####[facility] Esqkdiiyqd8294[address] [place], [place] [address]Dr.Airam TripathiNEUT #5.4 103/ulNormal1.4-6.5The [facility] HospitalComment on above:Performed By: #### CBC ####[facility] Nfnfkdxqqx7947[address] [place], [place] [address]Dr.Airam TripathiNeutrophils/100 WBC (Bld)72.4 %Kkjcqt80.0-75.0The [facility] HospitalComment on above:Performed By: #### CBC ####[facility] Fnuvhotijn8532[address] [place], [place] [address]Dr.Airam TripathiPlatelet mean volume (Bld) [Entitic vol]9.1 fLCritically low 9.5-13.5The [facility] HospitalComment on above:Performed By: #### CBC ####[facility] Xlqfiybzjc2495[address] [place], [place] [address]Dr. Airam CfzdrYIN407 103/ftQxxpff373-981Ojl [facility] HospitalComment on above: Performed By: #### CBC ####[facility] Jekvrhexpn7013[address] [place], [place] [address]Dr.Yilan ChangRBC3.05 106/ulCritically low4.20-5.40The [facility] CenterComment on above:Performed By: #### CBC ####[facility] O[address]rhumvcxf[address] [place] [address]Dr.Yineil ChangWBC7.4 103/ul Normal4.0-11.0The [facility] CenterComment on above:Performed By: #### CBC ####[facility] Fhhnkndulv[address] [place], [place] [address]Dr. Yilan ChangPROF 14(COMP METB)on 88-37-0845Zxfobau [Mass/Vol]3.3 g/dLCritically low3.4-5.0The [facility] CenterComment on above:Performed By: #### CMP ####[facility] Mlujpctjnv1415[address] [place], [place] [address]Dr. Airam ChangAlbumin/Globulin [Mass ratio]0.9 {ratio}NormalThe [facility] Comment on above:Performed By: #### CMP ####[facility] Gdbzitpdpg[address] [place], [place] [address]Dr.Selenalan ChangALP [Catalytic activity/Vol] 127 U/LCritically qfbe71-666Jko [facility] CenterComment on above:Performed By: #### CMP ####[facility] Sxntvoixog5869[address] [place], [place] [address]Dr.Airam ChangALT [Catalytic activity/Vol]29 U/ALezkiw12-68Zuh [facility] CenterComment on above:Performed By: #### CMP ####[facility] Sitdrelaqi5163[address] [place], [place] [address]Dr.Airam ChangAnion gap [Moles/Vol]14.6 mmol/LNormalThe [facility] CenterComment on above:Performed By: #### CMP ####[facility] Uflbqcegze5704[address] [place], [place] [address]Dr.Yilan ChangAST [Catalytic activity/Vol]28 U/IMtavgd82-89Jen [facility] CenterComment on above:Performed By: #### CMP ####[facility] Zikzhqlide[address] StreetB[place]vue, [place] [address]Dr.Yilan ChangBilirubin [Mass/Vol]0.3 mg/dLNormal0.2-1.0The [facility] CenterComment on above:Performed By: #### CMP ####[facility] Pwuzzwqusp6698[address] [place], [place] [address]Dr.Yilan ChangCalcium [Mass/Vol]8.9 mg/dLNormal8.5-10.1The [facility] CenterComment on above:Performed By: #### CMP ####[facility] Xsifxgwdin87[address] [place], [place] [address]Dr.Yilan ChangChloride [Moles/Vol]99 mmol/SLcukrj85-799Wic [facility] CenterComment on above:Performed By: #### CMP ####[facility] Emlpvweulp25[address] [place], [place] [address]Dr.Yilan ChangCO2 [Moles/Vol]25.1 mmol/OGiuasa37.0-32.0The [facility] CenterComment on above:Performed By: #### CMP ####[facility] Remeeuqrsw[address] [place], [place] [address]Dr.Yilan ChangCreatinine [Mass/Vol]1.42 mg/dLCritically high0.55-1.02The [facility] CenterComment on above:Performed By: #### CMP ####[facility] Yavfxlbrtp[address] [place], [place] [address]Dr.Yilan ChangEGFR-AF GLGEYBYI79 mL/min/1.73m2 Critically low>=60The [facility] CenterComment on above:Performed By: #### CMP ####[facility] Cflfkedqnm[address] [place], [place] [address]Dr. Yilan ChangEGFR-NON AF UYQJJLQW47 mL/min/1.54h1Uhslshlgwe low>=60The [facility] CenterComment on above:Performed By: #### CMP ####[facility] Favxwetrad[address] [place], [place] [address]Dr.Yilan ChangGlobulin (S) [Mass/Vol]3.6 g/dLNormalThe [facility] CenterComment on above:Performed By: #### CMP ####[facility] [address]dlkjc[address] [place] [address]Dr.Selenalan ChangGlucose [Mass/Vol]79 mg/sXHrfkee12-937Ckf [facility] Comment on above:Performed By: #### CMP ####[facility] [address]uylsmrpi[address] [place] [address]Dr.Airam ChangPotassium [Moles/Vol]5.7 mmol/LCritically high3.5-5.1The [facility] CenterComment on above:Performed By: #### CMP ####[facility] Xenehyymxt[address] [place], [place] [address]Dr.Yilan ChangProtein [Mass/Vol]6.9 g/dLNormal6.4-8.2The [facility] Comment on above:Performed By: #### CMP ####[facility] Wbuphrslka[address] [place], [place] [address]Dr.Selenalan ChangSodium [Moles/Vol]133 mmol/L Critically vxe291-094Hko [facility] CenterComment on above:Performed By: #### CMP ####[facility] Wfrsdmbdbc11[address] [place], [place] [address]Dr. Selenalan ChangUrea nitrogen [Mass/Vol]35.0 mg/dLCritically high7.0-18.0The [facility] CenterComment on above:Performed By: #### CMP ####[facility] Gmfppzbojo9[address] [place], [place] [address]Dr.Selenalan ChangUrea nitrogen/Creatinine [Mass ratio]24.6 mg/mgNormalThe [facility] CenterComment on above:Performed By: #### CMP ####[facility] Xdzluisxpe95[address] [place], [place] [address]Dr.Selenalan ChangOSMOLALITYon 77-68-1136Kufydrohqp [Osmolality]277 mosm/pyPwznki325-422Vjb [facility] CenterComment on above: Performed By: #### OSMO ####[facility] Bdqklddssm75[address] [place], [place] [address]Dr. Airam ChangCBC AUTO DIFFon 50-60-2389BJFU #0.0 103/ulNormal0.0-0.1The [facility] CenterComment on above:Performed By: #### CBC ####[facility] Yyyqflbzlz47[address] [place], [place] [address]Dr. Selenalan ChangBasophils/100 WBC (Bld)0.5 %Normal0.2-2.0The [facility] CenterComment on above:Performed By: #### CBC ####[facility] Prlmvayhfg[address] [place], [place] [address]Dr.Yilan ChangEO #0.2 103/ulNormal0.0-0.7The [facility] CenterComment on above:Performed By: #### CBC ####[facility] Xobfbzhalu8406[address] [place], [place] [address]Dr.Selenalan ChangEosinophils/100 WBC (Bld)3.2 %Normal0.9-7.0The [facility] CenterComment on above:Performed By: #### CBC ####[facility] Crfylknmoh040[address] [place], [place] [address]Dr.Airam ChangErythrocyte distribution width (RBC) [Ratio]15.1 %Critically high11.0-15.0The [facility] CenterComment on above:Performed By: #### CBC ####[facility] Nfgdicayyy8939[address] [place], [place] [address]Dr. Airam ChangHematocrit (Bld) [Volume fraction]26.2 %Critically low36.0-48.0The [facility] CenterComment on above:Performed By: #### CBC ####[facility] Osktqsxvki7699[address] [place], [place] [address]Dr.Airam ChangHemoglobin (Bld) [Mass/Vol]8.1 g/dLCritically low12.0-16.0The [facility] CenterComment on above:Performed By: #### CBC ####[facility] Bhfgwgbxik[address] [place], [place] [address]Dr.Selenalan ChangIG #0.02 10e3/ulNormal0.00-0.03The [facility] CenterComment on above:Performed By: #### CBC ####[facility] [address]vf[address] [place] [address]Dr.Airam TripathiIG %0.4 %Normal 0.0-0.5The [facility] CenterComment on above:Performed By: #### CBC ####[facility] Fcyaahweap3[address] [place], [place] [address]Dr.Airam TripathiLYMPH #1.3 103/ulNormal1.2-3.8The [facility] CenterComment on above:Performed By: #### CBC ####[facility] Sfqpgihqyw119[address] [place], [place] [address]Dr.Airam TripathiLymphocytes/100 WBC (Bld)22.6 %Nqvkia04.5-60.0The [facility] CenterComment on above:Performed By: #### CBC ####[facility] Xapikipdna5575[address] [place], [place] [address]Dr.Airam TripathiMANUAL DIFF REQ NONormalThe [facility] CenterComment on above:Performed By: #### CBC ####[facility] Ubvyewcwyf1232[address] [place], [place] [address]Dr. Airam TripathiH (RBC) [Entitic mass]28.0 dbUufvcy68.7-34.0The [facility] Comment on above:Performed By: #### CBC ####[facility] Opybpvcmgb849[address] [place], [place] [address]Dr.Airam TripathiHC (RBC) [Mass/Vol]30.9 g/dL Vebjra90.9-35.2The [facility] CenterComment on above:Performed By: #### CBC ####[facility] Etouhhzcsd647[address] [place], [place] [address]Dr. Airam TripathiV (RBC) [Entitic vol]90.7 fPLjqckj14.0-99.0The [facility] Comment on above:Performed By: #### CBC ####[facility] Thpctuadqy6523[address] [place], [place] [address]Dr.Airam TripathiMONO #0.5 103/ulNormal0.3-0.8 The [facility] CenterComment on above:Performed By: #### CBC ####[facility] [address]stxu[address] [place] [address]Dr.Airam Tripathi Monocytes/100 WBC (Bld)9.6 %Normal1.7-12.0The [facility] CenterCom[facility] on above: Performed By: #### CBC ####[facility] Vhpovpfjrd9759[address] [place], [place] [address]Dr.Airam TripathiNEUT #3.6 103/ulNormal1.4-6.5The [facility] CenterComment on above:Performed By: #### CBC ####[facility] Yeumwpgjbg4916[address] [place], [place] [address]Dr.Airam TripathiNeutrophils/100 WBC (Bld)63.7 %Ljefbp62.0-75.0The [facility] on above:Performed By: #### CBC ####[facility] Kkvupdyhew4728[address] [place], [place] [address]Dr.Airam TripathiPlatelet mean volume (Bld) [Entitic vol]9.4 fLCritically low 9.5-13.5The [facility] on above:Performed By: #### CBC ####[facility] Kbphjvshyw12[address] [place], [place] [address]Dr. Airam BurcgRVQ866 103/nyXpqism479-781Ead [facility] on above: Performed By: #### CBC ####[facility] Safqhlpyir0659[address] [place], [place] [address]Dr.Airam ChangRBC2.89 106/ulCritically low4.20-5.40The [facility] on above:Performed By: #### CBC ####[facility] Vnjucerlrw6755[address] [place], [place] [address]Dr.Airam ChangWBC5.6 103/ul Normal4.0-11.0The [facility] CenterCombar[facility] on above:Performed By: #### CBC ####[facility] Ddaoverlbq299[address] [place], [place] [address]Dr. Airam ChangPROF 14(COMP METB)on 60-98-3280Jrmlpys [Mass/Vol]3.0 g/dLCritically low3.4-5.0The [facility] HospitalComment on above:Performed By: #### CMP ####[facility] Psgexiuxcb7[address] [place] [address]Dr. Yilan ChangAlbumin/Globulin [Mass ratio]1.1 {ratio}NormalThe [facility] Comment on above:Performed By: #### CMP ####[facility] Nvhmwaugtz[address] [place] [address]Dr.Yilan ChangALP [Catalytic activity/Vol] 102 U/ISiplou49-452Kqx [facility] CenterComment on above:Performed By: #### CMP ####[facility] Nsefvvxphu5401[address] [place], [place] [address]Dr. Yilan ChangALT [Catalytic activity/Vol]20 U/LCnyfca69-65Zlk [facility] Comment on above:Performed By: #### CMP ####[facility] Mtytphjsai450[address] [place], [place] [address]Dr.Yilan ChangAnion gap [Moles/Vol]11.1 mmol/LNormalThe [facility] CenterComment on above:Performed By: #### CMP ####[facility] Ctlktbmyky[address] [place], [place] [address]Dr. Yilan ChangAST [Catalytic activity/Vol]18 U/BZehlju31-55Fzk [facility] Comment on above:Performed By: #### CMP ####[facility] Ecoizdwrtp2157[address] [place], [place] [address]Dr.Yilan ChangBilirubin [Mass/Vol]0.2 mg/dL Normal0.2-1.0The [facility] CenterComment on above:Performed By: #### CMP ####[facility] Nmakmybfbo9417[address] [place], [place] [address]Dr. Yilan ChangCalcium [Mass/Vol]8.0 mg/dLCritically low8.5-10.1The [facility] CenterComment on above:Performed By: #### CMP ####[facility] Hhlvuhodct6024[address] [place], [place] [address]Dr.Yilan ChangChloride [Moles/Vol]100 mmol/REbdtdj93-211Slk [facility] CenterComment on above:Performed By: #### CMP ####[facility] Yccxdsvirn3237[address] [place], [place] [address]Dr.Yilan ChangCO2 [Moles/Vol]24.8 mmol/QIvfvev64.0-32.0The [facility] CenterComment on above:Performed By: #### CMP ####[facility] Cmbevqorlw4138[address] [place], [place] [address]Dr.Yilan ChangCreatinine [Mass/Vol]1.11 mg/dLCritically high0.55-1.02The [facility] CenterComment on above:Performed By: #### CMP ####[facility] Tdqluylmwb8459[address] [place], [place] [address]Dr.Yilan ChangEGFR-AF DJIBOUTIAN>60Normal>=60The [facility] CenterCombar[facility] on above:Performed By: #### CMP ####[facility] Htdtylbosl7379[address] [place], [place] [address]Dr.Yilan ChangEGFR-NON AF SAMBIKJS74 mL/min/1.89j6Gyvrkkcegc low>=60The [facility] CenterComment on above: Performed By: #### CMP ####[facility] Lxxmjuozeg6086[address] [place], [place] [address]Dr.Yilan ChangGlobulin (S) [Mass/Vol]2.8 g/dLNormalThe [facility] CenterCombar[facility] on above:Performed By: #### CMP ####[facility] Xpdgbedklg939[address] [place], [place] [address]Dr.Yilan ChangGlucose [Mass/Vol]77 mg/vTNkbyeh49-413Poz [facility] CenterComment on above:Performed By: #### CMP ####[facility] Rftmwvmrch5532[address] [place], [place] [address]Dr.Yilan ChangPotassium [Moles/Vol]4.9 mmol/LNormal3.5-5.1The [facility] CenterComment on above:Performed By: #### CMP ####[facility] Vqkoczuden7164[address] [place], [place] [address]Dr.Yilan ChangProtein [Mass/Vol]5.8 g/dLCritically low6.4-8.2The [facility] CenterComment on above: Performed By: #### CMP ####[facility] [address]xtt[address] [place] [address]Dr.Airam ChangSodium [Moles/Vol]131 mmol/LCritically aen801-254Zlx [facility] CenterCom[facility] on above:Performed By: #### CMP ####[facility] Kxyijxomqo86[address] [place] [address]Dr. Airam ChangUrea nitrogen [Mass/Vol]33.0 mg/dLCritically high7.0-18.0The [facility] CenterCom[facility] on above:Performed By: #### CMP ####[facility] Ekivjjjvce035[address] [place], [place] [address]Dr.Selenalan ChangUrea nitrogen/Creatinine [Mass ratio]29.7 mg/mgNoGood Samaritan HospitalCombaraga county memorial hospital on above:Performed By: #### CMP ####[facility] Hdwcinunhw0557[address] [place], [place] [address]Dr.Selenaneil ChangECHOCARDIO M/2D COMPLETEon 09-21-2022 ECHOCARDIO M/2D [facility] HospitalOSMOLALITYon 09-21-2022 Osmolality [Osmolality]282 mosm/jfWamvim149-408Rdu [facility] on above:Performed By: #### OSMO ####[facility] Hqoxcmkwar289[address] [place], [place] [address]Dr. Selenaneil DeucePHOSPHOLIPIDSon 09-21-2022 Phospholipids, Pppsv114 mg/sERlhuuw079-454Jvw [facility] on above: Performed By: #### PHOSLIP ####[facility] Dkjmoibymq2165[address] [place], [place] [address]Dr. Airam TripathiCBC AUTO DIFFon 74-92-7826LIQP #0.0 103/ulNormal0.0-0.1The [facility] on above:Performed By: #### CBC ####[facility] Fvdfefdahq9654[address] [place], [place] [address]Dr. Selenalan ChangBasophils/100 WBC (Bld)0.5 %Normal0.2-2.0The [facility] HospitalComment on above:Performed By: #### CBC ####[facility] Pdohkwztrh3206[address] [place], [place] [address]Dr.Yilan ChangEO #0.2 103/ulNormal0.0-0.7The [facility] HospitalComment on above:Performed By: #### CBC ####[facility] Lwsfoswgvd7733[address] [place], [place] [address]Dr.Selenalan ChangEosinophils/100 WBC (Bld)2.9 %Normal0.9-7.0The [facility] HospitalComment on above:Performed By: #### CBC ####[facility] Xkunrpzszn6939[address] [place], [place] [address]Dr.Selenalan ChangErythrocyte distribution width (RBC) [Ratio]15.4 %Critically high11.0-15.0The [facility] CenterComment on above:Performed By: #### CBC ####[facility] Zdgmfrlksa352[address] [place], [place] [address]Dr. Airam ChangHematocrit (Bld) [Volume fraction]26.3 %Critically low36.0-48.0The [facility] CenterComment on above:Performed By: #### CBC ####[facility] Jwvaxbmtov7930[address] [place], [place] [address]Dr.Airam ChangHemoglobin (Bld) [Mass/Vol]8.2 g/dLCritically low12.0-16.0The [facility] CenterComment on above:Performed By: #### CBC ####[facility] Vxxttwcqzf7574[address] [place], [place] [address]Dr.Yilan ChangIG #0.03 10e3/ulNormal0.00-0.03The [facility] CenterComment on above:Performed By: #### CBC ####[facility] Nceguxpiwi3865[address] [place], [place] [address]Dr.Yilan ChangIG %0.4 %Normal 0.0-0.5The [facility] CenterComment on above:Performed By: #### CBC ####[facility] Nrmvjanesc1899[address] [place], [place] [address]Dr.Yilan ChangLYMPH #1.9 103/ulNormal1.2-3.8The [facility] CenterComment on above:Performed By: #### CBC ####[facility] Azgjzlpecn8645[address] [place], [place] [address]Dr.Airam TripathiLymphocytes/100 WBC (Bld)23.0 %Vsaxms20.5-60.0The [facility] CenterComment on above:Performed By: #### CBC ####[facility] Cnbxqmmvvj8056[address] [place], [place] [address]Dr.Selenaneil DeuceMANUAL DIFF REQ NONormalThe [facility] CenterComment on above:Performed By: #### CBC ####[facility] Sxwunkbxnu4048[address] [place], [place] [address]Dr. Airam TripathiH (RBC) [Entitic mass]28.5 bqLkfrgi44.7-34.0The [facility] Comment on above:Performed By: #### CBC ####[facility] Pzpjadzolh584[address] [place], [place] [address]Dr.Airam TripathiHC (RBC) [Mass/Vol]31.2 g/dL Aqcqua47.9-35.2The [facility] CenterComment on above:Performed By: #### CBC ####[facility] Ugosnixhuh575[address] [place], [place] [address]Dr. Airam TripathiV (RBC) [Entitic vol]91.3 bVIvfauq96.0-99.0The [facility] Comment on above:Performed By: #### CBC ####[facility] Wlggpcyhnz288[address] [place], [place] [address]DrBroderick DeuceMONO #0.7 103/ulNormal0.3-0.8 The [facility] CenterComment on above:Performed By: #### CBC ####[facility] Dieewoutmg5697[address] [place], [place] [address]DrKiannaSelenaneil Tripathi Monocytes/100 WBC (Bld)7.7 %Normal1.7-12.0The [facility] CenterComment on above: Performed By: #### CBC ####[facility] Dsbrakilgg9526[address] [place], [place] [address]DrBroderick TripathiNEUT #5.5 103/ulNormal1.4-6.5The [facility] CenterComment on above:Performed By: #### CBC ####[facility] Rllkvsmmhy[address] [place] [address]Dr.Airam TripathiNeutrophils/100 WBC (Bld)65.5 %Oqqsju84.0-75.0The [facility] CenterComment on above:Performed By: #### CBC ####[facility] Jicchhecub8665[address] [place], [place] [address]Dr.Airam TripathiPlatelet mean volume (Bld) [Entitic vol]9.1 fLCritically low 9.5-13.5The [facility] CenterComment on above:Performed By: #### CBC ####[facility] Movjgsycrz707[address] [place], [place] [address]Dr. Airam OkmitGNA454 103/veUkocvx085-054Bsh [facility] CenterComment on above: Performed By: #### CBC ####[facility] Pqxlnurwxi2745[address] [place], [place] [address]Dr.Airam TripathiRBC2.88 106/ulCritically low4.20-5.40The [facility] CenterComment on above:Performed By: #### CBC ####[facility] Hlkwvrcosg9395[address] [place], [place] [address]Dr.Airam TripathiWBC8.4 103/ul Normal4.0-11.0The [facility] CenterComment on above:Performed By: #### CBC ####[facility] Xcnjkfnlin9069[address] [place], [place] [address]Dr. Airam TripathiPROF CHEM 8 (BAS METB)on 70-81-3615Hxzcu gap [Moles/Vol]10.3 mmol/L NormalThe [facility] CenterComment on above:Performed By: #### BMP ####[facility] Yxfwayosfp999[address] [place], [place] [address]Dr.Airam Tripathi Calcium [Mass/Vol]7.9 mg/dLCritically low8.5-10.1The [facility] CenterComment on above:Performed By: #### BMP ####[facility] Gbgkhyhexd[address] [place] [address]Dr.Yilan ChangChloride [Moles/Vol]98 mmol/LNormal 98-107The [facility] Hospitalment on above:Performed By: #### BMP ####[facility] Xrhenonsmu206[address] [place], [place] [address]Dr.Yilan ChangCO2 [Moles/Vol]27.5 mmol/NHznhsq97.0-32.0The [facility] CenterComment on above: Performed By: #### BMP ####[facility] Mmrlfwmrxx482[address] [place], [place] [address]Dr.Yilan ChangCreatinine [Mass/Vol]1.44 mg/dL Critically high0.55-1.02The [facility] CenterCombar[facility] on above:Performed By: #### BMP ####[facility] Olmcrwqpiv034[address] [place], [place] [address]Dr.Yilan ChangEGFR-AF TGHCIUZO00 mL/min/1.75y7Pjpnlwuyrb low>=60The [facility] Hospitalment on above:Performed By: #### BMP ####[facility] Sqpihzlugt24[address] [place], [place] [address]Dr.Yilan ChangEGFR-NON AF ELQGSRGJ55 mL/min/1.49r7Chikruncdr low>=60The [facility] CenterCombar[facility] on above: Performed By: #### BMP ####[facility] Relffomkpu8469[address] [place], [place] [address]Dr.Yilan ChangGlucose [Mass/Vol]91 mg/eVHleqkd57-863 The [facility] on above:Performed By: #### BMP ####[facility] Ncwmsjmftd484[address] [place], [place] [address]Dr.Yilan Tripathi Potassium [Moles/Vol]4.8 mmol/LNormal3.5-5.1The [facility] CenterComment on above:Performed By: #### BMP ####[facility] Vsygudshko8924[address] [place], [place] [address]Dr.Yilan ChangSodium [Moles/Vol]131 mmol/LCritically rkb470-522Xsn [facility] CenterComment on above:Performed By: #### BMP ####[facility] Xbvtcfnsla25[address] [place] [address]Dr. Yilan ChangUrea nitrogen [Mass/Vol]40.0 mg/dLCritically high7.0-18.0The [facility] CenterComment on above:Performed By: #### BMP ####[facility] Jdciggdigf4264[address] [place], [place] [address]Dr.Yilan ChangUrea nitrogen/Creatinine [Mass ratio]27.8 mg/mgNormalThe [facility] CenterComment on above:Performed By: #### BMP ####[facility] Rywdylimam2988[address] [place], [place] [address]Dr.Yilan ChangAnion gap [Moles/Vol]10.6 mmol/LNormal The [facility] CenterComment on above:Performed By: #### BMP ####[facility] Kcgyismxza9495[address] [place], [place] [address]Dr.Yilan Tripathi Calcium [Mass/Vol]7.9 mg/dLCritically low8.5-10.1The [facility] CenterComment on above:Performed By: #### BMP ####[facility] Oeafvhdgsg3323[address] [place], [place] [address]Dr.Yilan ChangChloride [Moles/Vol]101 mmol/LNormal 98-107The [facility] CenterCombar[facility] on above:Performed By: #### BMP ####[facility] Xbhvqgfxie1917[address] [place], [place] [address]Dr.Yilan ChangCO2 [Moles/Vol]27.4 mmol/ITaenmo58.0-32.0The [facility] CenterComment on above: Performed By: #### BMP ####[facility] Eujvgpsyir6924[address] [place], [place] [address]Dr.Yilan ChangCreatinine [Mass/Vol]1.35 mg/dL Critically high0.55-1.02The [facility] CenterComment on above:Performed By: #### BMP ####[facility] Paajuovrla448[address] [place], [place] [address]Dr.Yilan ChangEGFR-AF RLNKTTUT47 mL/min/1.57h3Phiyypaqnv low>=60The [facility] CenterComment on above:Performed By: #### BMP ####[facility] Umpgwdjmcl[address] [place] [address]Dr.Yilan ChangEGFR-NON AF EAWYDZTD14 mL/min/1.76h5Slgxdkgcku low>=60The [facility] CenterComment on above: Performed By: #### BMP ####[facility] Ovfckrmupq18[address] [place] [address]Dr.Yilan ChangGlucose [Mass/Vol]114 mg/dLCritically mjae14-430Bqo [facility] CenterComment on above:Performed By: #### BMP ####[facility] Toasyrmvci0547[address] [place], [place] [address]Dr. Yilan ChangPotassium [Moles/Vol]5.0 mmol/LNormal3.5-5.1The [facility] Comment on above:Performed By: #### BMP ####[facility] Timiyrnemp0654[address] [place], [place] [address]Dr.Yilan ChangSodium [Moles/Vol]134 mmol/L Critically raf433-722Saa [facility] CenterComment on above:Performed By: #### BMP ####[facility] Jaifqjmaqv65[address] [place], [place] [address]Dr. Selenaneil ChangUrea nitrogen [Mass/Vol]40.0 mg/dLCritically high7.0-18.0The [facility] CenterComment on above:Performed By: #### BMP ####[facility] Yjemlbsemm4328[address] [place], [place] [address]Dr.Yilan ChangUrea nitrogen/Creatinine [Mass ratio]29.6 mg/mgNormalThe [facility] CenterComment on above:Performed By: #### BMP ####[facility] Pgpnfqpbux5[address] [place], [place] [address]Dr.Airam TripathiPTH INTACTon 20-03-7918EXE, Wnnhga106 pg/mLCritically wqil26-59Ecp [facility] CenterComment on above:Performed By: #### PTHINT ####[facility] Ejycyjujyt364[address] [place], [place] [address]Dr. Airam TripathiBNPon 41-88-9514Yuougbmbycc peptide B (Bld) [Mass/Vol]1272.0 pg/mLCritically high<=900.0The [facility] CenterComment on above:Performed By: #### HSTROPN, TSH, K, BNP ####[facility] Lexurobuxz[address] [place] [address]Dr. Airam ChangCBC AUTO DIFFon 55-87-1243QSCS #0.0 103/ulNormal0.0-0.1The [facility] CenterComment on above:Performed By: #### CBC ####[facility] Wbyjgbqxns9[address] [place], [place] [address]Dr. Airam ChangBasophils/100 WBC (Bld)0.5 %Normal0.2-2.0The [facility] CenterComment on above:Performed By: #### CBC ####[facility] Mzhxpoajkk4583[address] [place], [place] [address]Dr.Yilan ChangEO #0.2 103/ulNormal0.0-0.7The [facility] CenterComment on above:Performed By: #### CBC ####[facility] Alqnkayfvb6428[address] [place], [place] [address]Dr.Airam ChangEosinophils/100 WBC (Bld)2.6 %Normal0.9-7.0The [facility] Hospitalment on above:Performed By: #### CBC ####[facility] Hqukoeyjnu4997[address] [place], [place] [address]Dr.Airam ChangErythrocyte distribution width (RBC) [Ratio]15.5 %Critically high11.0-15.0The [facility] CenterComment on above:Performed By: #### CBC ####[facility] Hljwnrxuqz9[address] [place], [place] [address]Dr. Airam ChangHematocrit (Bld) [Volume fraction]31.1 %Critically low36.0-48.0The [facility] CenterComment on above:Performed By: #### CBC ####[facility] Wzwpopbsjj033[address] [place], [place] [address]Dr.Airam ChangHemoglobin (Bld) [Mass/Vol]9.6 g/dLCritically low12.0-16.0The [facility] CenterComment on above:Performed By: #### CBC ####[facility] Mztszxmwoo30[address] [place], [place] [address]Dr.Airam TripathiIG #0.04 10e3/ulCritically high0.00-0.03 [facility]Comment on above:Performed By: #### CBC ####[facility] Kkejqwpxfn7113[address] [place], [place] [address]Dr.Airam TripathiIG % 0.5 %Normal0.0-0.5The [facility] HospitalComment on above:Performed By: #### CBC ####[facility] Mvnkhvywhe2499[address] [place], [place] [address]Dr. Airam TripathiLYMPH #1.0 103/ulCritically low1.2-3.8The [facility] CenterComment on above:Performed By: #### CBC ####[facility] Eqursnpgwk[address] [place], [place] [address]Dr.Airam Dossmphocytes/100 WBC (Bld)12.0 % Critically low20.5-60.0The [facility] CenterComment on above:Performed By: #### CBC ####[facility] Nredwmmypc[address] [place], [place] [address]Dr. Airam TripathiMANUAL DIFF REQNONormalThe [facility] CenterComment on above: Performed By: #### CBC ####[facility] Aoxprikbhe59[address] [place], [place] [address]Dr.Airam [facility]iST[facility] (R[facility]) [Entitic mass]28.2 pgNormal 26.7-34.0The [facility] CenterComment on above:Performed By: #### CBC ####[facility] Nshdifjsrs5[address] [place], [place] [address]Dr. Airam TripathiHC (RBC) [Mass/Vol]30.9 g/qQNzduqv66.9-35.2The [facility] Comment on above:Performed By: #### CBC ####[facility] Ffidutzbyw[address] [place], [place] [address]Dr.Airam TripathiMCV (RBC) [Entitic vol]91.5 fL Hvkqhu70.0-99.0The [facility] CenterComment on above:Performed By: #### CBC ####[facility] Pdnyafbkir4674[address] [place], [place] [address]Dr. Airam TripathiMONO #0.5 103/ulNormal0.3-0.8The [facility] CenterComment on above: Performed By: #### CBC ####[facility] Ywzzhyaffq5490[address] [place], [place] [address]Dr.Airam TripathiMonocytes/100 WBC (Bld)6.4 %Normal 1.7-12.0The [facility] CenterComment on above:Performed By: #### CBC ####[facility] Dqqaehfmfw4495[address] [place], [place] [address]Dr. Airam TripathiNEUT #6.4 103/ulNormal1.4-6.5The [facility] CenterComment on above: Performed By: #### CBC ####[facility] Bpnftszzmn7386[address] [place], [place] [address]Dr.Airam TripathiNeutrophils/100 WBC (Bld)78.0 % Critically high43.0-75.0The [facility] CenterComment on above:Performed By: #### CBC ####[facility] Jyquaeuvnm7[address] [place], [place] [address]Dr. Airam TripathiPlatelet mean volume (Bld) [Entitic vol]9.1 fLCritically low9.5-13.5 The [facility] CenterComment on above:Performed By: #### CBC ####[facility] Tauikwhcky[address] [place], [place] [address]Dr.Airam CgzyhXCG416 103/ayEfkhqk849-739Bfr [facility] CenterComment on above:Performed By: #### CBC ####[facility] Wcablggsst6[address] [place], [place] [address]Dr. Airam ChangRBC3.40 106/ulCritically low4.20-5.40The [facility] CenterComment on above:Performed By: #### CBC ####[facility] Qumpzcowof[address] [place] [address].Airam ChangWBC8.2 103/ulNormal4.0-11.0The [facility] CenterComment on above:Performed By: #### CBC ####[facility] [address] [place] [address]Dr.Airam TripathiCovid-19 PCR (CVDTBH)on 87-23-6493YWWF-CoV-2 (COVID-19) RNA MIKE+probe Ql (Unsp spec)Not detectedNormalNOT DETECTEDThe [facility] CenterComment on above:Result Comment: When diagnostic testing is negative, the [...] for this test is supported by the [place] of Health and Human Service's declaration that circumstances exist to justify the emergency use of in vitro diagnostics for the detection and/or diagnosis of the virus that causes COVID-19. This EUA will remain in effect for the duration of the COVID-19declaration justifying emergency of IVDs, unless it is terminated or revoked by the FDA (after which the test may no longer be used).Performed By: #### CVDTBH ####[facility] [address]whctypz[address] [place] [address]Dr. Airam ChangLACTATE/LACTIC ACIDon 62-33-0603Juppubd [Moles/Vol]0.4 mmol/LNormal0.4-2.0The [facility] CenterComment on above:Performed By: #### LACT ####[facility] Mhphukmlfw[address] [place], [place] [address]Dr. Airam ChangPOTASSIUMon 32-75-9283Qxgtauhwz [Moles/Vol]6.3 mmol/LCritically high 3.5-5.1The [facility] CenterComment on above:Performed By: #### HSTROPN, TSH, K, BNP ####[facility] [address] [place] [id number]. Yilan ChangPROF 14(COMP METB)on 55-27-8955Tqnykjj [Mass/Vol]3.5 g/dL Normal3.4-5.0The [facility] CenterComment on above:Performed By: #### CMP ####[facility] Nfmbhvttbi[address] [place] [address]Dr. Yilan ChangAlbumin/Globulin [Mass ratio]1.1 {ratio}NormalThe [facility] Comment on above:Performed By: #### CMP ####[facility] Whckvdtbdl37[address] [place], [place] [address]Dr.Yilan ChangALP [Catalytic activity/Vol] 113 U/ZKygyeb37-709Ftd [facility] CenterComment on above:Performed By: #### CMP ####[facility] Sprb[address]ekje[address] [place] [address]Dr. Yilan ChangALT [Catalytic activity/Vol]26 U/PXdzfpa57-81Pbv [facility] Comment on above:Performed By: #### CMP ####[facility] Gmqntsqhjg3[address] [place], [place] [address]Dr.Yilan ChangAnion gap [Moles/Vol]11.5 mmol/LNormalThe [facility] CenterComment on above:Performed By: #### CMP ####[facility] Abryliikul3732[address] [place], [place] [address]Dr. Yilan ChangAST [Catalytic activity/Vol]24 U/JSfdhyf94-07Ihi [facility] Comment on above:Performed By: #### CMP ####[facility] Eivapmfkji1360[address] [place], [place] [address]Dr.Yilan ChangBilirubin [Mass/Vol]0.3 mg/dL Normal0.2-1.0The [facility] CenterComment on above:Performed By: #### CMP ####[facility] Raijvhcner6[address] [place], [place] [address]Dr. Yilan ChangCalcium [Mass/Vol]8.9 mg/dLNormal8.5-10.1The [facility] HospitalComment on above:Performed By: #### CMP ####[facility] S[address]qcozil[address] [place] [address]Dr.Yilan ChangChloride [Moles/Vol]103 mmol/LNormal 98-107The [facility] CenterComment on above:Performed By: #### CMP ####[facility] Idohcgmrko[address] [place], [place] [address]Dr.Yilan ChangCO2 [Moles/Vol]27.8 mmol/MZsfkbk43.0-32.0The [facility] CenterComment on above: Performed By: #### CMP ####[facility] Ooruvlvhib[address] [place], [place] [address]Dr.Yilan ChangCreatinine [Mass/Vol]1.28 mg/dL Critically high0.55-1.02The [facility] CenterComment on above:Performed By: #### CMP ####[facility] Khlzsyqkub4543[address] [place], [place] [address]Dr.Yilan ChangEGFR-AF OYFLLXYQ15 mL/min/1.60w7Yiwnjopetm low>=60The [facility] CenterComment on above:Performed By: #### CMP ####[facility] Vaupfgbcwy4785[address] [place], [place] [address]Dr.Yilan ChangEGFR-NON AF QLSMSGQS68 mL/min/1.26k3Knlowpeoea low>=60The [facility] Hospitalment on above: Performed By: #### CMP ####[facility] Nugyesxukf[address] [place], [place] [address]Dr.Yilan ChangGlobulin (S) [Mass/Vol]3.2 g/dLNormalThe [facility] CenterComment on above:Performed By: #### CMP ####[facility] Xhhinpynxr8904[address] [place], [place] [address]Dr.Yilan ChangGlucose [Mass/Vol]95 mg/mHPsekzy28-007Xuy [facility] CenterComment on above:Performed By: #### CMP ####[facility] Rfrdzftfnb3109[address] [place], [place] [address]Dr.Yilan ChangPotassium [Moles/Vol]6.3 mmol/LCritically high3.5-5.1The [facility] CenterComment on above:Performed By: #### CMP ####[facility] Qglkqryiix[address] [place] [address]Dr.Yilan ChangProtein [Mass/Vol]6.7 g/dLNormal6.4-8.2The [facility] CenterComment on above:Performed By: #### CMP ####[facility] Nbkzgcabkn7943[address] [place], [place] [address]Dr.Yilan ChangSodium [Moles/Vol]135 mmol/LCritically tnn476-216Pjt [facility] CenterComment on above:Performed By: #### CMP ####[facility] Lnrnboyxng[address] [place], [place] [address]Dr.Yilan ChangUrea nitrogen [Mass/Vol]42.0 mg/dLCritically high7.0-18.0The [facility] CenterComment on above:Performed By: #### CMP ####[facility] Qwikbhuzlq4078[address] [place], [place] [address]Dr.Yilan ChangUrea nitrogen/Creatinine [Mass ratio] 32.8 mg/mgNormalThe [facility] CenterComment on above:Performed By: #### CMP ####[facility] Vewatacldd[address] [place], [place] [address]Dr. Airam TripathiTROPONIN, HIGH SENSITIVITYon 19-31-4843SJKBIN2.1 pg/mLNormal4.0-51.3 The [facility] CenterCombaraga [facility] memorial hospital on above:Result Comment: CUT-OFF POINTS HAVE BEEN ESTABLISHED BASED ON THE FOURTH UNIVERSAL DEFINITIONS OF MYOCARDIALINFARCTION. THE UPPER REFERENCE LIMIT (URL) OF TROPONIN, DEFINED THE 99TH PERCENTILE OFcT nI DISTRIBUTION IN A REFERENCE POPULATION, HAS BEEN CONFIRMED THE DECISION THRESHOLDFOR PA DIAGNOSIS.Performed By: #### HSTROPN, TSH, K, BNP ####[facility] Jcwmatrfek9[address] [place], [place] [address]Dr. Selenaneil TripathiTSHon 15-61-0973ZKX7.028 uIU/mLCritically low0.358-3.740The [facility] CenterComment on above:Performed By: #### HSTROPN, TSH, K, BNP ####[facility] [address]zuukzok[address] [place] [address]Dr. Airam TripathiUA RANDOMon 95-15-0465Beoquolra Ql (U)NegativeNormalNEGATIVEBellevue Hospital HospitalComment on above:Performed By: #### UA ####[facility] Ybdgihpwei[address] [place] [address]Dr. Yilan ChangClarity (U)CLEARNormalCLEARThe [facility] HospitalComment on above:Performed By: #### UA ####[facility] Cowoqqvjkl1823[address] [place], [place] [address]Dr. Yilan ChangColor (U)LT. YELLOWNormalYELLOWBellevue Hospital HospitalComment on above:Performed By: #### UA ####[facility] Zyrfvkcggt701[address] [place], [place] [address]Dr. Y grayson ChangGlucose Ql (U)NegativeNormalNEGATIVEBellevue Hospital HospitalComment on above:Performed By: #### UA ####[facility] Ragyjcukne26[address] [place], [place] [address]Dr. Yilan ChangHemoglobin Ql (U)NegativeNormalNEGATIVE The [facility] HospitalComment on above:Performed By: #### UA ####[facility] Vvpganfjsm0844[address] [place], [place] [address]Dr. Yilan Tripathi Ketones Ql (U)NegativeNormalNEGATIVEBellevue Hospital HospitalComment on above: Performed By: #### UA ####[facility] Luvekmctkf8830[address] [place], [place] [address]Dr. Yilan ChangLEUKOCYTESTRACEAbnormalNEGATIVEBellevue Hospital HospitalComment on above:Performed By: #### UA ####[facility] Jrwgrgfdex966[address] [place], [place] [address]Dr. Yilan ChangNitrite Ql (U) NegativeNormalNEGATIVEBellevue Hospital HospitalComment on above:Performed By: #### UA ####[facility] Qtezkgtpxp1034[address] [place], [place] [address]Dr. Yilan ChangpH (U)5.5 [pH]Normal5-9The [facility] HospitalComment on above: Performed By: #### UA ####[facility] Bvnejjfhfs[address] [place], [place] [address]Dr. Airam TripathiSPEC GRAVITY1.881Hihcgz4.005-<=1.025The [facility] CenterComment on above:Performed By: #### UA ####[facility] Vetigdvrsv0670[address] [place], [place] [address]Dr. Airam ChangUA PROTEIN NegativeNormalNEGATIVE/ TRACEThe [facility] CenterComment on above:Performed By: #### UA ####[facility] Zkzplpjunm3446[address] [place], [place] [address]Dr. Airam ChangUrobilinogen Qn (U)0.2 {Ligia'U}/dLNormal0.2 - 1.0The [facility] CenterComment on above:Performed By: #### UA ####[facility] Ztgbjbrntf7488[address] [place], [place] [address]Dr. Airam ChangURIC ACID SERUMon 24-99-6474Vokim [Mass/Vol]6.9 mg/dLCritically high2.6-6.0The [facility] CenterComment on above:Performed By: #### URIC ####[facility] Xnijxbvpcj5248[address] [place], [place] [address]Dr. Airam TripathiURINE T PROTEIN CREAT RATIOon 64-07-6409DF TOTAL PROTEIN<6.0Normal<=12.0The [facility] CenterComment on above:Performed By: #### URTPCR ####[facility] Gboyuoudhv997[address] [place], [place] [address]Dr. Selenalan ChangURINE CREAT 15.12 mg/dLCritically low20.00-300.00The [facility] CenterComment on above: Performed By: #### URTPCR ####[facility] Iyomidlnxi7489[address] [place], [place] [address]Dr. Selenalan ChangVITAMIN D 25 OHon 06-06-2700RUT D 25-OH 75.9 ng/mLNormalThe [facility] CenterComment on above:Performed By: #### VITAD ####[facility] Oxyzkmtrgj9495[address] [place], [place] [address]Dr. Airam Maria RANGESSEE BELOWCleveland Clinic Hillcrest HospitalComment on above: Result Comment: <20 ng/mL Vit D deficient 20 - <30 ng/mL Vit D insufficient 30 - 100 ng/mL Vit D sufficient >100 ng/mL Potential ToxicityPerformed By: #### VITAD ####[facility] Twdtlwnnqc3924[address] [place], [place] [address]Dr. Airam TripathiOSMOLALITYon 09-05-0843Jhvqiwbtdw [Osmolality]272 mosm/kg Critically gjg591-211Abj [facility] CenterComment on above:Performed By: #### OSMO ####[facility] Zbybtcnved177[address] [place], [place] [address]Dr. Airam TripathiCBC AUTO DIFFon 27-47-9938INJP #0.0 103/ulNormal0.0-0.1[facility] HospitalComment on above:Performed By: #### CBC ####[facility] Ydjxroaypt4935[address] [place], [place] [address]Dr.Airam TripathiBasophils/100 WBC (Bld)0.5 %Normal0.2-2.0The [facility] CenterComment on above:Performed By: #### CBC ####[facility] Asuyaykjxe0360[address] [place], [place] [address]Dr.Airam ChangEO #0.2 103/ulNormal0.0-0.7The [facility] CenterCombaraga county memorial hospital on above:Performed By: #### CBC ####[facility] Mmbbqkotjx[address] [place], [place] [address]Dr.Airam ChangEosinophils/100 WBC (Bld)2.4 %Normal 0.9-7.0The [facility] CenterComment on above:Performed By: #### CBC ####[facility] Zajekgmsrv199[address] [place], [place] [address]Dr.Airam Tripathi Erythrocyte distribution width (RBC) [Ratio]14.8 %Lfiqrp94.0-15.0The [facility] CenterComment on above:Performed By: #### CBC ####[facility] Csebayyceu2812[address] [place], [place] [address]Dr.Selenaneil DeuceHematocrit (Bld) [Volume fraction]32.6 %Critically low36.0-48.0The [facility] CenterComment on above:Performed By: #### CBC ####[facility] Xwgpldqvlf4204[address] [place], [place] [address]Dr.Airam ChangHemoglobin (Bld) [Mass/Vol]10.1 g/dL Critically low12.0-16.0The [facility] CenterComment on above:Performed By: #### CBC ####[facility] Whtgkayced95[address] [place], [place] [address]Dr. Selenalan ChangIG #0.05 10e3/ulCritically high0.00-0.03The [facility] CenterComment on above:Performed By: #### CBC ####[facility] Vmfijgljdy9580[address] [place], [place] [address]Dr.Airam ChangIG %0.7 %Critically high0.0-0.5The [facility] CenterComment on above:Performed By: #### CBC ####[facility] Alzfrkvvxs3743[address] [place], [place] [address]Dr.Airam ChangLYMPH #1.9 103/ulNormal1.2-3.8The [facility] CenterComment on above:Performed By: #### CBC ####[facility] Ymnbilgjga6840[address] [place], [place] [address]Dr. Airam TripathiLymphocytes/100 WBC (Bld)24.7 %Yexztm71.5-60.0The [facility] Comment on above:Performed By: #### CBC ####[facility] Gylfenxfxu4695[address] [place], [place] [address]Dr.Airam ChangMANUAL DIFF REQNONormalThe [facility] CenterComment on above:Performed By: #### CBC ####[facility] Ccqrfbillc5037[address] [place], [place] [address]Dr.Airam TripathiMCH (RBC) [Entitic mass]28.0 ouHzpqyr27.7-34.0The [facility] CenterComment on above: Performed By: #### CBC ####[facility] [address]ijge[address] [place] [address]Dr.Airam DeuceMCHC (RBC) [Mass/Vol]31.0 g/dLNormal 29.9-35.2The [facility] CenterComment on above:Performed By: #### CBC ####[facility] Jytlsrgwnh64[address] [place] [address]Dr. Airam DeuceMCV (RBC) [Entitic vol]90.3 vHQqikhh45.0-99.0The [facility] Comment on above:Performed By: #### CBC ####[facility] Wnsisggprf020[address] [place], [place] [address]Dr.Selenaneil TripathiMONO #0.5 103/ulNormal0.3-0.8 The [facility] CenterComment on above:Performed By: #### CBC ####[facility] Xawbsizjnu1589[address] [place], [place] [address]Dr.Selenaneil Tripathi Monocytes/100 WBC (Bld)6.0 %Normal1.7-12.0The [facility] CenterComment on above: Performed By: #### CBC ####[facility] Xboidtskfn0177[address] [place], [place] [address]Dr.Airam TripathiNEUT #5.0 103/ulNormal1.4-6.5The [facility] CenterComment on above:Performed By: #### CBC ####[facility] Ofrswymeml5784[address] [place], [place] [address]Dr.Airam DeuceNeutrophils/100 WBC (Bld)65.7 %Bywpvv74.0-75.0The [facility] CenterComment on above:Performed By: #### CBC ####[facility] Aiehsfiiqd2873[address] [place], [place] [address]Dr.Selenaneil TripathiPlatelet mean volume (Bld) [Entitic vol]9.5 fLNormal9.5-13.5 The [facility] CenterComment on above:Performed By: #### CBC ####[facility] Mhbtuhrjkr3794[address] [place], [place] [address]Dr.Airam TripathiPLT307 103/avHxajwy453-851Vev [facility] HospitalComment on above:Performed By: #### CBC ####[facility] Wmvnjwdcut[address] [place] [address]Dr. Airam TripathiRBC3.61 106/ulCritically low4.20-5.40The [facility] CenterComment on above:Performed By: #### CBC ####[facility] Zimgkpfgba[address] [place] [address]Dr.Airam ChangWBC7.5 103/ulNormal4.0-11.0The [facility] CenterComment on above:Performed By: #### CBC ####[facility] Gqernwhiwe[address] [place] [address]Dr.Airam TripathiPROF 14(COMP METB)on 86-25-0330Zdnwqks [Mass/Vol]3.5 g/dLNormal3.4-5.0[facility] Comment on above:Performed By: #### CMP ####[facility] Mbrgrclaoh[address] [place], [place] [address]Dr.Airam ChangAlbumin/Globulin [Mass ratio] 1.1 {ratio}NormalThe [facility] CenterComment on above:Performed By: #### CMP ####[facility] Xbaihgftlr7335[address] [place], [place] [address]Dr. Airam TripathiALP [Catalytic activity/Vol]126 U/LCritically pnmp31-533Ryx [facility] CenterComment on above:Performed By: #### CMP ####[facility] Ampkafzhkv288[address] [place], [place] [address]Dr.Airam ChangALT [Catalytic activity/Vol]18 U/YZrccod29-06Ixo [facility] CenterComment on above:Performed By: #### CMP ####[facility] Pouuysyxya4138[address] [place], [place] [address]Dr.Airam TripathiAnion gap [Moles/Vol]11.1 mmol/LNormalThe [facility] Comment on above:Performed By: #### CMP ####[facility] Wqplnkkhiu01[address] [place], [place] [address]Dr.Airam ChangAST [Catalytic activity/Vol]26 U/ZEavopm25-38Rqo [facility] CenterComment on above:Performed By: #### CMP ####[facility] Mdlkfvwxsq9028[address] [place], [place] [address]Dr. Yilan ChangBilirubin [Mass/Vol]0.3 mg/dLNormal0.2-1.0The [facility] Comment on above:Performed By: #### CMP ####[facility] Iagzgvgxtv5978[address] [place], [place] [address]Dr.Yilan ChangCalcium [Mass/Vol]8.5 mg/dL Normal8.5-10.1The [facility] CenterComment on above:Performed By: #### CMP ####[facility] Vfkkxgelsa7680[address] [place], [place] [address]Dr. Yilan ChangChloride [Moles/Vol]98 mmol/TOhtrjt34-804Dbd [facility] CenterComment on above:Performed By: #### CMP ####[facility] Uiptkcolvf2155[address] [place], [place] [address]Dr.Yilan ChangCO2 [Moles/Vol]23.9 mmol/LNormal 21.0-32.0The [facility] CenterComment on above:Performed By: #### CMP ####[facility] Ogwcmyniue5694[address] [place], [place] [address]Dr. Yilan ChangCreatinine [Mass/Vol]1.40 mg/dLCritically high0.55-1.02The [facility] CenterComment on above:Performed By: #### CMP ####[facility] Pimnafhgqa[address] [place], [place] [address]Dr.Yilan ChangEGFR-AF AHJBRDWN68 mL/min/1.44p8Lackkzgweu low>=60The [facility] CenterComment on above: Performed By: #### CMP ####[facility] Whkylrwikf3125[address] [place], [place] [address]Dr.Yilan ChangEGFR-NON AF ZQNMESYN76 mL/min/1.73m2 Critically low>=60The [facility] CenterComment on above:Performed By: #### CMP ####[facility] Efcgjfjudb7624[address] [place], [place] [address]Dr. Yilan ChangGlobulin (S) [Mass/Vol]3.3 g/dLNoGood Samaritan HospitalComment on above:Performed By: #### CMP ####[facility] Bpjfowbjcz2[address] [place], [place] [address]Dr.Selenaneil ChangGlucose [Mass/Vol]72 mg/dLCritically low 74-106The [facility] CenterComment on above:Performed By: #### CMP ####[facility] Rlymxhosra384[address] [place], [place] [address]Dr.Selenaneil Tripathi Potassium [Moles/Vol]5.0 mmol/LNormal3.5-5.1The [facility] CenterComment on above:Performed By: #### CMP ####[facility] Rvpjkzxtwz4638[address] [place], [place] [address]Dr.Selenaneil ChangProtein [Mass/Vol]6.8 g/dLNormal6.4-8.2 The [facility] CenterComment on above:Performed By: #### CMP ####[facility] Zyogmqqgva9[address] [place], [place] [address]Dr.Airam ChangSodium [Moles/Vol]128 mmol/LCritically iww801-943Cyf [facility] CenterComment on above:Performed By: #### CMP ####[facility] Vynqqylsng257[address] [place], [place] [address]Dr.Selenaneil ChangUrea nitrogen [Mass/Vol]27.0 mg/dL Critically high7.0-18.0The [facility] CenterComment on above:Performed By: #### CMP ####[facility] Yovksbzrck20[address] [place], [place] [address]Dr. Selenalan ChangUrea nitrogen/Creatinine [Mass ratio]19.3 mg/mgNoGood Samaritan HospitalComment on above:Performed By: #### CMP ####[facility] Zzxcsnotmz[address] [place], [place] [address]Dr.Airam ChangOSMOLALITYon 68-83-8305Qqbffhcmus [Osmolality]275 mosm/tdFzxiyb712-164Arq [facility] Comment on above:Performed By: #### OSMO ####[facility] [address]rnjz[address] [place] [address]Dr. Airam TripathiCBC AUTO DIFFon 09-08-2022 BASO #0.0 103/ulNormal0.0-0.1The [facility] CenterComment on above:Performed By: #### CBC ####[facility] Rbfexokmdw7224[address] [place], [place] [address]Dr.Selenalan ChangBasophils/100 WBC (Bld)0.5 %Normal0.2-2.0The [facility] CenterComment on above:Performed By: #### CBC ####[facility] Xzbsxmpzjg69[address] [place], [place] [address]Dr.Selenalan ChangEO #0.1 103/ul Normal0.0-0.7The [facility] CenterComment on above:Performed By: #### CBC ####[facility] Fcvzrtlfno65[address] [place], [place] [address]Dr. Airam ChangEosinophils/100 WBC (Bld)1.7 %Normal0.9-7.0The [facility] Comment on above:Performed By: #### CBC ####[facility] Hdwpumflye19[address] [place], [place] [address]Dr.Airam ChangErythrocyte distribution width (RBC) [Ratio]14.7 %Stqlct75.0-15.0The [facility] CenterComment on above: Performed By: #### CBC ####[facility] Cjiezkagbw[address] [place], [place] [address]Dr.Airam ChangHematocrit (Bld) [Volume fraction]30.3 % Critically low36.0-48.0The [facility] CenterComment on above:Performed By: #### CBC ####[facility] [facility] [address]khmaqrzmm[address] [place], [place] [address]Dr. Airam ChangHemoglobin (Bld) [Mass/Vol]9.3 g/dLCritically low12.0-16.0The [facility] CenterComment on above:Performed By: #### CBC ####[facility] Qpgrlpevyk[address] [place], [place] [address]Dr.Selenalan ChangIG #0.03 10e3/ulNormal0.00-0.03The [facility] CenterComment on above:Performed By: #### CBC ####[facility] [address]sp[address] [place] [address]Dr. Airam TripathiIG %0.5 %Normal0.0-0.5The [facility] CenterComment on above:Performed By: #### CBC ####[facility] Hyrsxesrta32[address] [place], [place] [address]Dr.Airam TripathiLYMPH #0.9 103/ulCritically low1.2-3.8The [facility] CenterComment on above:Performed By: #### CBC ####[facility] Cynzjfwtur[address] [place], [place] [address]Dr.Airam TripathiLymphocytes/100 WBC (Bld)13.6 %Critically low20.5-60.0The [facility] CenterComment on above: Performed By: #### CBC ####[facility] Udoqrytrtt[address] [place], [place] [address]Dr.Airam TripathiMANUAL DIFF REQNONormalThe [facility] CenterComment on above:Performed By: #### CBC ####[facility] Jjmpgxajdq[address] [place], [place] [address]Dr.Airam TripathiH (RBC) [Entitic mass]27.4 icTftspk70.7-34.0The [facility] CenterComment on above: Performed By: #### CBC ####[facility] Tlwdxjpdeu4[address] [place], [place] [address]Dr.Airam TripathiHC (RBC) [Mass/Vol]30.7 g/dLNormal 29.9-35.2The [facility] CenterComment on above:Performed By: #### CBC ####[facility] Ixsrjecdkf13[address] [place], [place] [address]Dr. Airam TripathiV (RBC) [Entitic vol]89.4 vBSfwzpp81.0-99.0[facility] Comment on above:Performed By: #### CBC ####[facility] Fnncvpnqcx[address] [place], [place] [address]Dr.Airam TripathiMONO #0.5 103/ulNormal0.3-0.8 The [facility] CenterComment on above:Performed By: #### CBC ####[facility] Dbmllecdfc8[address] [place], [place] [address]Dr.Airam Tripathi Monocytes/100 WBC (Bld)8.0 %Normal1.7-12.0The [facility] CenterComment on above: Performed By: #### CBC ####[facility] Biqiyaywhb85[address] [place], [place] [address]Dr.Airam ChangNEUT #5.0 103/ulNormal1.4-6.5The [facility] HospitalComment on above:Performed By: #### CBC ####[facility] Weagkitbki32[address] [place], [place] [address]Dr.Airam TripathiNeutrophils/100 WBC (Bld)75.7 %Critically high43.0-75.0The [facility] CenterComment on above: Performed By: #### CBC ####[facility] Oesibctthw3[address] [place], [place] [address]Dr.Airam TripathiPlatelet mean volume (Bld) [Entitic vol] 10.4 fLNormal9.5-13.5The [facility] CenterComment on above:Performed By: #### CBC ####[facility] Ekehpfbkqu6734[address] [place], [place] [address]Dr. Airam NafaiXIB721 103/reEahfie331-765Emh [facility] CenterComment on above: Performed By: #### CBC ####[facility] Lfbuhjxuou87[address] [place], [place] [address]Dr.Airam ChangRBC3.39 106/ulCritically low4.20-5.40The [facility] CenterComment on above:Performed By: #### CBC ####[facility] Ufncamtbpv6[address] [place], [place] [address]Dr.Airam ChangWBC6.5 103/ul Normal4.0-11.0The [facility] CenterComment on above:Performed By: #### CBC ####[facility] Mggozpkqot722[address] [place], [place] [address]Dr. Yilan ChangPROF 14(COMP METB)on 74-85-5930Tlunnld [Mass/Vol]3.1 g/dLCritically low3.4-5.0The [facility] CenterComment on above:Performed By: #### CMP ####[facility] [address] [place] [address]Dr. Yilan ChangAlbumin/Globulin [Mass ratio]1.0 {ratio}NormalThe [facility] Comment on above:Performed By: #### CMP ####[facility] Aeiuwmgrth[address] [place] [address]Dr.Yilan ChangALP [Catalytic activity/Vol] 126 U/LCritically oqlg04-435Dth [facility] CenterComment on above:Performed By: #### CMP ####[facility] Dkaqvcazjh[address] [place], [place] [address]Dr.Yilan ChangALT [Catalytic activity/Vol]18 U/AWdivas02-64Wel [facility] CenterComment on above:Performed By: #### CMP ####[facility] Mauypgyfrv8277[address] [place], [place] [address]Dr.Yilan ChangAnion gap [Moles/Vol]11.4 mmol/LNormalThe [facility] CenterComment on above:Performed By: #### CMP ####[facility] Kmzgjibdcg9[address] [place], [place] [address]Dr.Yilan ChangAST [Catalytic activity/Vol]25 U/RShwuls20-13Kaq [facility] CenterComment on above:Performed By: #### CMP ####[facility] Bkjeswnmdm1997[address] [place], [place] [address]Dr.Yilan ChangBilirubin [Mass/Vol]0.3 mg/dLNormal0.2-1.0The [facility] CenterComment on above:Performed By: #### CMP ####[facility] Izzrnkdhkb2146[address] [place], [place] [address]Dr.Yilan ChangCalcium [Mass/Vol]8.6 mg/dLNormal8.5-10.1The [facility] CenterComment on above:Performed By: #### CMP ####[facility] Xksirifipv77[address] [place], [place] [address]Dr.Yilan ChangChloride [Moles/Vol]97 mmol/LCritically tdl73-215Sas [facility] CenterComment on above: Performed By: #### CMP ####[facility] Zftwlrejsk5[address] [place], [place] [address]Dr.Yilan ChangCO2 [Moles/Vol]26.1 mmol/LNormal 21.0-32.0The [facility] CenterComment on above:Performed By: #### CMP ####[facility] Ikazljduij[address] [place], [place] [address]Dr. Yilan ChangCreatinine [Mass/Vol]1.07 mg/dLCritically high0.55-1.02The [facility] CenterComment on above:Performed By: #### CMP ####[facility] Divvlkaoeb01[address] [place], [place] [address]Dr.Yilan ChangEGFR-AF DJIBOUTIAN>60Normal>=60The [facility] CenterComment on above:Performed By: #### CMP ####[facility] Kkgmjzzkfh7148[address] [place], [place] [address]Dr. Yilan ChangEGFR-NON AF MKMZQBOL79 mL/min/1.63b5Nluvvujbnf low>=60The [facility] CenterComment on above:Performed By: #### CMP ####[facility] Cakdlsnztz7435[address] [place], [place] [address]Dr.Yilan ChangGlobulin (S) [Mass/Vol]3.2 g/dLNormalThe [facility] CenterComment on above:Performed By: #### CMP ####[facility] Oerfgfkdnq773[address] [place], [place] [address]Dr.Yilan ChangGlucose [Mass/Vol]83 mg/wGVmfqli54-706Cff [facility] Comment on above:Performed By: #### CMP ####[facility] Ywqdibcpcz8[address] [place], [place] [address]Dr.Yilan ChangPotassium [Moles/Vol]5.5 mmol/LCritically high3.5-5.1The [facility] CenterComment on above:Performed By: #### CMP ####[facility] Zxndlvcsvq[address] [place] [address]Dr.Airam ChangProtein [Mass/Vol]6.3 g/dLCritically low6.4-8.2The [facility] CenterComment on above:Performed By: #### CMP ####[facility] Sqopmgqxjx4910[address] [place], [place] [address]Dr.Selenalan ChangSodium [Moles/Vol]129 mmol/LCritically idv374-639Rsx [facility] CenterComment on above: Performed By: #### CMP ####[facility] Ubwjjdpkhz5223[address] [place], [place] [address]Dr.Selenalan ChangUrea nitrogen [Mass/Vol]37.0 mg/dL Critically high7.0-18.0The [facility] CenterComment on above:Performed By: #### CMP ####[facility] Gplnwaeqse80[address] [place], [place] [address]Dr. Selenalan ChangUrea nitrogen/Creatinine [Mass ratio]34.6 mg/mgNormalThe [facility] CenterComment on above:Performed By: #### CMP ####[facility] Qcbrlieslx[address] [place], [place] [address]Dr.Airam ChangOSMOLALITYon 64-44-3545Wogznkjjpc [Osmolality]279 mosm/rmUgtjmf034-677Gtd [facility] Comment on above:Performed By: #### OSMO ####[facility] Xbiwqkocxh[address] [place], [place] [address]Dr. Airam TripathiCBC AUTO DIFFon 08-31-2022 BASO #0.0 103/ulNormal0.0-0.1The [facility] Hospitalment on above:Performed By: #### CBC ####[facility] Movxbfcwqa4274[address] [place], [place] [address]Dr.Airam ChangBasophils/100 WBC (Bld)0.4 %Normal0.2-2.0The [facility] CenterComment on above:Performed By: #### CBC ####[facility] Wmbmkdcqsw5834[address] [place], [place] [address]Dr.Selenalan ChangEO #0.2 103/ul Normal0.0-0.7The [facility] CenterComment on above:Performed By: #### CBC ####[facility] Nasoliaglu0912[address] [place], [place] [address]Dr. Airam ChangEosinophils/100 WBC (Bld)3.2 %Normal0.9-7.0The [facility] Comment on above:Performed By: #### CBC ####[facility] Nswwplvnej[address] [place], [place] [address]Dr.Airam ChangErythrocyte distribution width (RBC) [Ratio]14.4 %Spqach59.0-15.0The [facility] HospitalComment on above: Performed By: #### CBC ####[facility] Uecbqwijyv12[address] [place], [place] [address]Dr.Airam ChangHematocrit (Bld) [Volume fraction]27.8 % Critically low36.0-48.0The [facility] CenterComment on above:Performed By: #### CBC ####[facility] Jheljvmxyz9659[address] [place], [place] [address]Dr. Airam ChangHemoglobin (Bld) [Mass/Vol]8.7 g/dLCritically low12.0-16.0The [facility] CenterComment on above:Performed By: #### CBC ####[facility] Tfeccykhto27[address] [place], [place] [address]Dr.Airam ChangIG #0.05 10e3/ulCritically high0.00-0.03The [facility] CenterComment on above:Performed By: #### CBC ####[facility] Llmzasyuch3448[address] [place], [place] [address]Dr.Airam ChangIG %0.7 %Critically high0.0-0.5The [facility] HospitalComment on above:Performed By: #### CBC ####[facility] Klvdwbjkdq[address] [place], [place] [address]Dr.Selenalan ChangLYMPH #1.7 103/ulNormal1.2-3.8The [facility] CenterComment on above:Performed By: #### CBC ####[facility] Fjrfkycgey[address] [place], [place] [address]Dr.Airam TripathiLymphocytes/100 WBC (Bld)23.6 %Toqvzz18.5-60.0The [facility] CenterComment on above:Performed By: #### CBC ####[facility] [address]pru[address] [place] [address]Dr.Airam TripathiMANUAL DIFF REQNONormalThe [facility] CenterComment on above:Performed By: #### CBC ####[facility] Byiaqzhcti[address] [place], [place] [address]Dr.Airam TripathiH (RBC) [Entitic mass]27.8 pgNormal 26.7-34.0The [facility] CenterComment on above:Performed By: #### CBC ####[facility] Eoblwxqzpm6493[address] [place], [place] [address]Dr. Airam TripathiHC (RBC) [Mass/Vol]31.3 g/lEDfddin98.9-35.2The [facility] Comment on above:Performed By: #### CBC ####[facility] Ncwfmlmbdf00[address] [place], [place] [address]Dr.Airam TripathiV (RBC) [Entitic vol]88.8 fL Byvwhg03.0-99.0The [facility] CenterComment on above:Performed By: #### CBC ####[facility] Okkeruavjy4267[address] [place], [place] [address]Dr. Airam TripathiMONO #0.5 103/ulNormal0.3-0.8The [facility] CenterComment on above: Performed By: #### CBC ####[facility] Rnxegelppb9180[address] [place], [place] [address]Dr.Airam TripathiMonocytes/100 WBC (Bld)6.9 %Normal 1.7-12.0The [facility] CenterComment on above:Performed By: #### CBC ####[facility] Lrfrxzzizn3754[address] [place], [place] [address]Dr. Airam TripathiNEUT #4.7 103/ulNormal1.4-6.5The [facility] CenterComment on above: Performed By: #### CBC ####[facility] W[address]smgeuhbn[address] [place] [address]Dr.Airam TripathiNeutrophils/100 WBC (Bld)65.2 %Normal 43.0-75.0The [facility] CenterComment on above:Performed By: #### CBC ####[facility] Pnxbnfybcd[address] [place], [place] [address]Dr. Selenaneil DeucePlatelet mean volume (Bld) [Entitic vol]9.8 fLNormal9.5-13.5The [facility] CenterComment on above:Performed By: #### CBC ####[facility] Esitdstnyf[address] [place], [place] [address]Dr.Selenaneil TripathiJqbcyKLQ108 103/ul Bqawvn415-584Zkm [facility] CenterComment on above:Performed By: #### CBC ####[facility] Dneaovflcb[address] [place], [place] [address]Dr. Airam TripathiRBC3.13 106/ulCritically low4.20-5.40The [facility] CenterComment on above:Performed By: #### CBC ####[facility] Xesdzeaeqv[address] [place], [place] [address]Dr.Selenaneil TripathiWBC7.3 103/ulNormal4.0-11.0The [facility] CenterComment on above:Performed By: #### CBC ####[facility] Gcxdorkrrc35[address] [place], [place] [address]Dr.Airam TripathiPROF 14(COMP METB)on 96-27-9230Reyozjf [Mass/Vol]3.0 g/dLCritically low3.4-5.0The [facility] CenterComment on above:Performed By: #### CMP ####[facility] Aseupifodl[address] [place], [place] [address]Dr.Airam Tripathi Albumin/Globulin [Mass ratio]1.1 {ratio}NormalThe [facility] on above:Performed By: #### CMP ####[facility] Rfgpaqtcce5[address] [place], [place] [address]Dr.Airam TripathiALP [Catalytic activity/Vol]132 U/L Critically fjvn15-662Tpq [facility] CenterComment on above:Performed By: #### CMP ####[facility] [address] [place] [address]Dr. Yilan ChangALT [Catalytic activity/Vol]20 U/RPftckj79-68Bmi [facility] Comment on above:Performed By: #### CMP ####[facility] Rplshtbzmq[address] [place] [address]Dr.Yilan ChangAnion gap [Moles/Vol]9.5 mmol/LNormalThe [facility] CenterComment on above:Performed By: #### CMP ####[facility] Ilxugfnlqo[address] [place], [place] [address]Dr. Yilan ChangAST [Catalytic activity/Vol]25 U/VYsxdoo50-23Nxa [facility] Comment on above:Performed By: #### CMP ####[facility] Rocfabicuj[address] [place] [address]Dr.Yilan ChangBilirubin [Mass/Vol]0.2 mg/dL Normal0.2-1.0The [facility] CenterComment on above:Performed By: #### CMP ####[facility] Ojcbhszsuk[address] [place], [place] [address]Dr. Yilan ChangCalcium [Mass/Vol]7.9 mg/dLCritically low8.5-10.1The [facility] CenterComment on above:Performed By: #### CMP ####[facility] Eatdamjiqy3425[address] [place], [place] [address]Dr.Yilan ChangChloride [Moles/Vol]97 mmol/LCritically rhl96-792Zyu [facility] CenterComment on above: Performed By: #### CMP ####[facility] Evhbpfdnre[address] [place], [place] [address]Dr.Yilan ChangCO2 [Moles/Vol]27.3 mmol/LNormal 21.0-32.0The [facility] CenterComment on above:Performed By: #### CMP ####[facility] Ptkoapbemn13[address] [place], [place] [address]Dr. Yilan ChangCreatinine [Mass/Vol]1.58 mg/dLCritically high0.55-1.02The [facility] CenterComment on above:Performed By: #### CMP ####[facility] [address]vswbl[address] [place] [address]Dr.Yilan ChangEGFR-AF TUIHXZQL83 mL/min/1.49j7Ewhicrkode low>=60The [facility] CenterComment on above: Performed By: #### CMP ####[facility] Qiigudvbyt[address] [place] [address]Dr.Yilan ChangEGFR-NON AF QJQTAAHR61 mL/min/1.73m2 Critically low>=60The [facility]Comment on above:Performed By: #### CMP ####[facility] Kgzggplvsb0028[address] [place], [place] [address]Dr. Yilan ChangGlobulin (S) [Mass/Vol]2.8 g/dLNormalThe [facility] CenterComment on above:Performed By: #### CMP ####[facility] Lgivwsrcct69[address] [place], [place] [address]Dr.Yilan ChangGlucose [Mass/Vol]111 mg/dLCritically cywy80-482Aff [facility] CenterComment on above:Performed By: #### CMP ####[facility] Mzjodkcyid040[address] [place], [place] [address]Dr. Yilan ChangPotassium [Moles/Vol]4.8 mmol/LNormal3.5-5.1The [facility] Comment on above:Performed By: #### CMP ####[facility] Wlxhygmuor1367[address] [place], [place] [address]Dr.Yilan ChangProtein [Mass/Vol]5.8 g/dL Critically low6.4-8.2The [facility] CenterComment on above:Performed By: #### CMP ####[facility] Zpffiselvz[address] [place], [place] [address]Dr. Yilan ChangSodium [Moles/Vol]129 mmol/LCritically bqy872-724Zvn [facility] CenterComment on above:Performed By: #### CMP ####[facility] Zcapwuochw5857[address] [place], [place] [address]Dr.Yilan ChangUrea nitrogen [Mass/Vol]44.0 mg/dLCritically high7.0-18.0The [facility] CenterComment on above:Performed By: #### CMP ####[facility] Qrrcykfnjp626[address] [place], [place] [address]Dr.Selenaneil DeuceUrea nitrogen/Creatinine [Mass ratio] 27.8 mg/mgNormalThe [facility] CenterCombar[facility] on above:Performed By: #### CMP ####[facility] Uxpssseyah3934[address] [place], [place] [address]Dr. Selenaneil DeuceOSMOLALITYon 91-74-6768Augtyvpvsf [Osmolality]288 mosm/kgNormal 275-295The [facility] CenterComment on above:Performed By: #### OSMO ####[facility] Gfzacgbyfx13[address] [place], [place] [address]Dr. Selenaneil DeuceCBC AUTO DIFFon 60-84-1020UCHA #0.0 103/ulNormal0.0-0.1The [facility] on above:Performed By: #### CBC ####[facility] Bdfxlgifet1164[address] [place], [place] [address]Dr.Airam DeuceBasophils/100 WBC (Bld)0.5 %Normal0.2-2.0The [facility] CenterCombar[facility] on above:Performed By: #### CBC ####[facility] Gqcvqbficv01[address] [place], [place] [address]Dr.Selenalan ChangEO #0.4 103/ulNormal0.0-0.7The [facility] CenterCombar[facility] on above:Performed By: #### CBC ####[facility] Puxxvqpwfv[address] [place], [place] [address]Dr.Selenaneil ChangEosinophils/100 WBC (Bld)4.8 %Normal 0.9-7.0The [facility] Hospitalment on above:Performed By: #### CBC ####[facility] Bnozyyarjc8193[address] [place], [place] [address]Dr.Selenaneil Tripathi Erythrocyte distribution width (RBC) [Ratio]14.2 %Muvclk38.0-15.0The [facility] Hospitalment on above:Performed By: #### CBC ####[facility] Lnhoeofwjq7178[address] [place], [place] [address]Dr.Airam TripathiHematocrit (Bld) [Volume fraction]31.1 %Critically low36.0-48.0The [facility] CenterComment on above:Performed By: #### CBC ####[facility] Xjzxtjplvu5535[address] [place], [place] [address]Dr.Airam DeuceHemoglobin (Bld) [Mass/Vol]9.7 g/dL Critically low12.0-16.0The [facility] CenterComment on above:Performed By: #### CBC ####[facility] Sjepovigiw2486[address] [place], [place] [address]Dr. Selenalan ChangIG #0.05 10e3/ulCritically high0.00-0.03The [facility] CenterComment on above:Performed By: #### CBC ####[facility] Rlkfmumjav17[address] [place], [place] [address]Dr.Airam ChangIG %0.6 %Critically high0.0-0.5The [facility] CenterComment on above:Performed By: #### CBC ####[facility] Vuklazhwdz[address] [place], [place] [address]Dr.Airam TripathiLYMPH #1.7 103/ulNormal1.2-3.8The [facility] CenterComment on above:Performed By: #### CBC ####[facility] Uritsmaeqp8876[address] [place], [place] [address]Dr. Airam TripathiLymphocytes/100 WBC (Bld)19.6 %Critically low20.5-60.0The [facility] CenterComment on above:Performed By: #### CBC ####[facility] Fifaafvdgo3656[address] [place], [place] [address]Dr.Selenaneil TripathiMANUAL DIFF REQ NONormalThe [facility] CenterComment on above:Performed By: #### CBC ####[facility] Acazclcatm3578[address] [place], [place] [address]Dr. Airam TripathiMCH (RBC) [Entitic mass]28.2 nlMgzvfo17.7-34.0The [facility] Comment on above:Performed By: #### CBC ####[facility] [address]zet[address]jj[address] [place] [address]Dr.Airam TripathiMCHC (RBC) [Mass/Vol]31.2 g/dL Jdcpvr49.9-35.2The [facility] CenterComment on above:Performed By: #### CBC ####[facility] Sx[address]xgwbqa[address] [place] [address]Dr. Airam TripathiMCV (RBC) [Entitic vol]90.4 xMAvibrv57.0-99.0The [facility] Comment on above:Performed By: #### CBC ####[facility] Yckcyywapi5154[address] [place], [place] [address]Dr.Airam TripathiMONO #0.6 103/ulNormal0.3-0.8 The [facility] CenterComment on above:Performed By: #### CBC ####[facility] Wehppvbimx8855[address] [place], [place] [address]Dr.Airam Tripathi Monocytes/100 WBC (Bld)7.4 %Normal1.7-12.0The [facility] CenterComment on above: Performed By: #### CBC ####[facility] Rsrynzeobw6893[address] [place], [place] [address]Dr.Airam DeuceNEUT #5.8 103/ulNormal1.4-6.5The [facility] CenterComment on above:Performed By: #### CBC ####[facility] Nhbazoqyoj[address] [place], [place] [address]Dr.Airam DeuceNeutrophils/100 WBC (Bld)67.1 %Btqupx87.0-75.0The [facility] CenterComment on above:Performed By: #### CBC ####[facility] Chrnyproda3399[address] [place], [place] [address]Dr.Airam TripathiPlatelet mean volume (Bld) [Entitic vol]9.9 fLNormal9.5-13.5 [facility]Comment on above:Performed By: #### CBC ####[facility] Lmeprkbhjn74[address] [place], [place] [address]Dr.Airam TripahtiPLT320 103/dgBdofzg387-651Lgi [facility] CenterComment on above:Performed By: #### CBC ####[facility] Vbvwtkyopi[address] [place] [address]Dr. Airam ChangRBC3.44 106/ulCritically low4.20-5.40The [facility] CenterComment on above:Performed By: #### CBC ####[facility] Tcitbwnxtp[address] [place] [address]Dr.Airam ChangWBC8.6 103/ulNormal4.0-11.0The [facility] CenterComment on above:Performed By: #### CBC ####[facility] Brvblqqwyj[address] [place] [address]Dr.Airam TripathiPROF 14(COMP METB)on 07-35-2175Lwqcmao [Mass/Vol]3.4 g/dLNormal3.4-5.0[facility] Comment on above:Performed By: #### CMP ####[facility] Vngsirzoou[address] [place], [place] [address]Dr.Airam ChangAlbumin/Globulin [Mass ratio] 1.1 {ratio}NormalThe [facility] CenterComment on above:Performed By: #### CMP ####[facility] Lhvhcclywm6[address] [place], [place] [address]Dr. Airam TripathiALP [Catalytic activity/Vol]170 U/LCritically hiep23-180Pev [facility] CenterComment on above:Performed By: #### CMP ####[facility] Txrxruejee[address] [place], [place] [address]Dr.Airam ChangALT [Catalytic activity/Vol]22 U/DAfxffm15-61Oge [facility] CenterComment on above:Performed By: #### CMP ####[facility] Gezccvsobd[address] [place], [place] [address]Dr.Airam TripathiAnion gap [Moles/Vol]14.4 mmol/LNormalThe [facility] Comment on above:Performed By: #### CMP ####[facility] Opdohibwst[address] [place], [place] [address]Dr.Airam ChangAST [Catalytic activity/Vol]25 U/MTlplrw95-45Qtd [facility] CenterComment on above:Performed By: #### CMP ####[facility] Kxsvuxgdqk6[address] [place], [place] [address]Dr. Yilan ChangBilirubin [Mass/Vol]0.3 mg/dLNormal0.2-1.0The [facility] Comment on above:Performed By: #### CMP ####[facility] Ajkobxxsia[address] [place], [place] [address]Dr.Yilan ChangCalcium [Mass/Vol]8.2 mg/dL Critically low8.5-10.1The [facility] CenterComment on above:Performed By: #### CMP ####[facility] Fcovxyswpe[address] [place], [place] [address]Dr. Yilan ChangChloride [Moles/Vol]98 mmol/BPrbeet78-109Zrq [facility] CenterComment on above:Performed By: #### CMP ####[facility] Ffinbdzibd9[address] [place], [place] [address]Dr.Yilan ChangCO2 [Moles/Vol]27.8 mmol/LNormal 21.0-32.0The [facility] CenterComment on above:Performed By: #### CMP ####[facility] Fkphqnwvqf23[address] [place], [place] [address]Dr. Yilan ChangCreatinine [Mass/Vol]1.82 mg/dLCritically high0.55-1.02The [facility] CenterComment on above:Performed By: #### CMP ####[facility] Kgcahligod[address] [place], [place] [address]Dr.Yilan ChangEGFR-AF IDFXDORG71 mL/min/1.88l0Ojankvrkjw low>=60The [facility] CenterComment on above: Performed By: #### CMP ####[facility] Wtrxcghwbh74[address] [place], [place] [address]Dr.Yilan ChangEGFR-NON AF RMXVBIOP80 mL/min/1.73m2 Critically low>=60The [facility] CenterComment on above:Performed By: #### CMP ####[facility] Aaqvykbnmk[address] [place], [place] [address]Dr. Yilan ChangGlobulin (S) [Mass/Vol]3.2 g/dLNormSelect Medical OhioHealth Rehabilitation HospitalComment on above:Performed By: #### CMP ####[facility] Yidypgiznw85[address] [place], [place] [address]Dr.Airam ChangGlucose [Mass/Vol]78 mg/pRRvjhed27-380 The [facility] CenterComment on above:Performed By: #### CMP ####[facility] Kerwdewhom90[address] [place], [place] [address]Dr.Airam Tripathi Potassium [Moles/Vol]5.2 mmol/LCritically high3.5-5.1The [facility] Comment on above:Performed By: #### CMP ####[facility] Pyzhboyieb229[address] [place], [place] [address]Dr.Airam ChangProtein [Mass/Vol]6.6 g/dL Normal6.4-8.2The [facility] CenterComment on above:Performed By: #### CMP ####[facility] Vdqetfguzw9418[address] [place], [place] [address]Dr. Airam ChangSodium [Moles/Vol]135 mmol/LCritically xkd429-989Aib [facility] CenterComment on above:Performed By: #### CMP ####[facility] Iqdbdpesyu6[address] [place], [place] [address]Dr.Airam ChangUrea nitrogen [Mass/Vol]51.0 mg/dLCritically high7.0-18.0The [facility] CenterComment on above:Performed By: #### CMP ####[facility] Rcitxcuupu033[address] [place], [place] [address]Dr.Selenalan ChangUrea nitrogen/Creatinine [Mass ratio] 28.0 mg/mgNormSelect Medical OhioHealth Rehabilitation HospitalComment on above:Performed By: #### CMP ####[facility] Tuxxiwxpkj2347[address] [place], [place] [address]Dr. Airam ChangOSMOLALITYon 69-12-7447Dolmyhysxf [Osmolality]280 mosm/kgNormal 275-295The [facility] CenterComment on above:Performed By: #### OSMO ####[facility] Hetpcepwuq9958[address] [place], [place] [address]Dr. Airam TripathiCBC AUTO DIFFon 20-66-0341YDSH #0.0 103/ulNormal0.0-0.1The [facility] CenterComment on above:Performed By: #### CBC ####[facility] Udozcbnaow[address] [place], [place] [address]Dr.Airam TripathiBasophils/100 WBC (Bld)0.2 %Normal0.2-2.0The [facility] CenterComment on above:Performed By: #### CBC ####[facility] Dvkjdlylat4450[address] [place], [place] [address]Dr.Selenalan ChangEO #0.2 103/ulNormal0.0-0.7The [facility] CenterComment on above:Performed By: #### CBC ####[facility] Vszlngyvmq2639[address] [place], [place] [address]Dr.Airam ChangEosinophils/100 WBC (Bld)2.4 %Normal 0.9-7.0The [facility] CenterComment on above:Performed By: #### CBC ####[facility] Hwfhyorewf8[address] [place], [place] [address]Dr.Airam Tripathi Erythrocyte distribution width (RBC) [Ratio]14.2 %Hxvzpd62.0-15.0The [facility] CenterComment on above:Performed By: #### CBC ####[facility] Skjiewxlvj1054[address] [place], [place] [address]Dr.Airam TripathiHematocrit (Bld) [Volume fraction]30.1 %Critically low36.0-48.0The [facility] CenterComment on above:Performed By: #### CBC ####[facility] Zljbxvtpzg2020[address] [place], [place] [address]Dr.Airam TripathiHemoglobin (Bld) [Mass/Vol]9.2 g/dL Critically low12.0-16.0The [facility] CenterComment on above:Performed By: #### CBC ####[facility] Akjzxepxyq437[address] [place], [place] [address]Dr. Airam TripathiIG #0.04 10e3/ulCritically high0.00-0.03[facility] HospitalComment on above:Performed By: #### CBC ####[facility] [address] [place] [address]Dr.Airam TripathiIG %0.4 %Normal0.0-0.5The [facility] CenterComment on above:Performed By: #### CBC ####[facility] J[address]uwulkfg[address] [place] [address]Dr.Airam TripathiLYMPH #0.9 103/ulCritically low1.2-3.8The [facility] CenterComment on above:Performed By: #### CBC ####[facility] Ffvxndbdgp3027[address] [place], [place] [address]Dr.Airam TripathiLymphocytes/100 WBC (Bld)9.3 %Critically low20.5-60.0The [facility] CenterComment on above:Performed By: #### CBC ####[facility] Inamsvruiz209[address] [place], [place] [address]Dr.Airam TripathiMANUAL DIFF REQ NONormalThe [facility] CenterComment on above:Performed By: #### CBC ####[facility] Hvmmyxecvc4664[address] [place], [place] [address]Dr. Airam TripathiH (RBC) [Entitic mass]27.7 uhCzchia33.7-34.0[facility] Comment on above:Performed By: #### CBC ####[facility] Gwdumhxgqe4677[address] [place], [place] [address]Dr.Airam TripathiHC (RBC) [Mass/Vol]30.6 g/dL Zgzfvs59.9-35.2The [facility] CenterComment on above:Performed By: #### CBC ####[facility] Nrdgcgcaja1665[address] [place], [place] [address]Dr. Airam TripathiV (RBC) [Entitic vol]90.7 gVYblhxg05.0-99.0The [facility] Comment on above:Performed By: #### CBC ####[facility] Xhisvpvdjc5409[address] [place], [place] [address]Dr.Airam TripathiMISSOURI [facility] #0.5 103/ulNormal0.3-0.8 The [facility] CenterComment on above:Performed By: #### CBC ####[facility] Btbwtttldf9546[address] [place], [place] [address]Dr.Airam Tripathi Monocytes/100 WBC (Bld)5.3 %Normal1.7-12.0The [facility] CenterComment on above: Performed By: #### CBC ####[facility] Vffmyfzorj497[address] [place], [place] [address]Dr.Airam TripathiNEUT #7.7 103/ulCritically high1.4-6.5 The [facility] CenterComment on above:Performed By: #### CBC ####[facility] Edztubtiwg0105[address] [place], [place] [address]Dr.Airam Tripathi Neutrophils/100 WBC (Bld)82.4 %Critically high43.0-75.0The [facility] Comment on above:Performed By: #### CBC ####[facility] Uwqtldsqlq4365[address] [place], [place] [address]Dr.Airam TripathiPlatelet mean volume (Bld) [Entitic vol]9.8 fLNormal9.5-13.5The [facility] CenterComment on above:Performed By: #### CBC ####[facility] Eisulklosx7315[address] [place], [place] [address]Dr.Airam QxtkuCFU038 103/jrLpzixc741-342Jkj [facility] CenterComment on above:Performed By: #### CBC ####[facility] Vdpyyhzxfq5065[address] [place], [place] [address]Dr.Airam DeuceRBC3.32 106/ulCritically low4.20-5.40The [facility] CenterComment on above:Performed By: #### CBC ####[facility] Njngcgyuvn36[address] [place], [place] [address]Dr.Airam DeuceWBC9.4 103/ul Normal4.0-11.0The [facility] CenterComment on above:Performed By: #### CBC ####[facility] Qrnoolkfjy4585[address] [place], [place] [address]Dr. Yilan ChangMRI WRIST RT WO CONon 62-50-4659QNF WRIST RT WO CONNormalThe [facility] CenterPROF 14(COMP METB)on 49-74-7188Oiegefd [Mass/Vol]3.1 g/dLCritically low 3.4-5.0The [facility] CenterComment on above:Performed By: #### CMP ####[facility] Dvzqfxvmzv7087[address] [place], [place] [address]Dr.Airam Tripathi Albumin/Globulin [Mass ratio]0.9 {ratio}NormalThe [facility] CenterComment on above:Performed By: #### CMP ####[facility] Xggmgyftow1516[address] [place], [place] [address]Dr.Airam TripathiALP [Catalytic activity/Vol]162 U/L Critically gncq15-380Tsw [facility] CenterComment on above:Performed By: #### CMP ####[facility] Fxxszkypic5948[address] [place], [place] [address]Dr. Airam TripathiALT [Catalytic activity/Vol]19 U/NBmnnwf01-65Mwp [facility] Comment on above:Performed By: #### CMP ####[facility] Bjroihwvzi8465[address] [place], [place] [address]Dr.Airam TripathiAnion gap [Moles/Vol]13.0 mmol/LNormalThe [facility] CenterComment on above:Performed By: #### CMP ####[facility] Kqnzqcuzla[address] [place], [place] [address]Dr. Airam ChangAST [Catalytic activity/Vol]21 U/WJoojav85-56Zhn [facility] Comment on above:Performed By: #### CMP ####[facility] Xmltybgosi737[address] [place], [place] [address]Dr.Airam ChangBilirubin [Mass/Vol]0.3 mg/dL Normal0.2-1.0The [facility] CenterComment on above:Performed By: #### CMP ####[facility] Geqpfzdptk3969[address] [place], [place] [address]Dr. Airam TripathiCalcium [Mass/Vol]8.4 mg/dLCritically low8.5-10.1The [facility] CenterComment on above:Performed By: #### CMP ####[facility] [address]dhy[address] [place] [address]Dr.Yilan ChangChloride [Moles/Vol]103 mmol/OCwtjhj95-182Ywe [facility] CenterComment on above:Performed By: #### CMP ####[facility] Eurndzvuda[address] [place], [place] [address]Dr.Yilan ChangCO2 [Moles/Vol]23.3 mmol/VXgklbj39.0-32.0The [facility] CenterComment on above:Performed By: #### CMP ####[facility] Qgfatayrcs025[address] [place], [place] [address]Dr.Yilan ChangCreatinine [Mass/Vol]1.02 mg/dLNormal0.55-1.02The [facility] CenterCombar[facility] on above: Performed By: #### CMP ####[facility] Amyakmvcjw[address] [place], [place] [address]Dr.Yilan ChangEGFR-AF DJIBOUTIAN>60Normal>=60The [facility] on above:Performed By: #### CMP ####[facility] Xwmvomdgdh[address] [place], [place] [address]Dr.Yilan ChangEGFR-NON AF WKFIFYJA70 mL/min/1.18t0Cspnwzrmis low>=60The [facility] CenterCombaraga [facility] memorial hospital on above: Performed By: #### CMP ####[facility] Vazhjelgzb35[address] [place], [place] [address]Dr.Yilan ChangGlobulin (S) [Mass/Vol]3.4 g/dLNormalThe [facility] CenterComment on above:Performed By: #### CMP ####[facility] Qzzeaxzuta[address] [place], [place] [address]Dr.Yilan ChangGlucose [Mass/Vol]88 mg/dTGleeom67-997Npx [facility] CenterCombaraga [facility] hospital on above:Performed By: #### CMP ####[facility] Akjslprvrx7[address] [place], [place] [address]Dr.Yilan ChangPotassium [Moles/Vol]4.3 mmol/LNormal3.5-5.1The [facility] CenterComment on above:Performed By: #### CMP ####[facility] [address]qwxrpyo[address] [place] [address]Dr.Yilan ChangProtein [Mass/Vol]6.5 g/dLNormal6.4-8.2The [facility] CenterComment on above:Performed By: #### CMP ####[facility] [address]udkvmdov[address] [place] [address]Dr.Yilan ChangSodium [Moles/Vol]135 mmol/LCritically hoz051-824Wex [facility] CenterComment on above:Performed By: #### CMP ####[facility] Dhcbmvkeuf[address] [place] [address]Dr.Yilan ChangUrea nitrogen [Mass/Vol]27.0 mg/dLCritically high7.0-18.0The [facility] CenterComment on above:Performed By: #### CMP ####[facility] Lksbxojfmf[address] [place] [address]Dr.Selenalan ChangUrea nitrogen/Creatinine [Mass ratio] 26.5 mg/mgNormalThCommunity Memorial HospitalComment on above:Performed By: #### CMP ####[facility] Hftbihwbmz[address] [place] [address]Dr. Airam TripathiCT HEAD WO CONon 56-49-9118IS HEAD WO [facility] CT LSPINE WO CONon 26-76-3842RQ LSPINE WO [facility] HospitalXR HAND RT MIN 3Von 91-21-5117AC HAND RT MIN 3VNormSelect Medical OhioHealth Rehabilitation HospitalXR KNEE LT 4V or >on 73-64-0124HG KNEE LT 4V or >NormalThe [facility] CenterXR WRIST RT MIN 3 Von 14-60-6573QC WRIST RT MIN 3 VNNewark HospitalOSMOLALITYon 64-19-4965Eqxzzgzcik [Osmolality]282 mosm/qwEgipyh686-246Scn [facility] Comment on above:Performed By: #### OSMO ####[facility] Oyrielreyc[address] [place] [address]Dr. Airam BabcockC AUTO DIFFon 02-08-2023 BASO #0.0 103/ulNormal0.0-0.1The [facility] CenterComment on above:Performed By: #### CBC ####[facility] Juixjiyyhy18[address] [place], [place] [address]Dr.Yilan ChangBasophils/100 WBC (Bld)0.5 %Normal0.2-2.0The [facility] CenterComment on above:Performed By: #### CBC ####[facility] Vdoirbdeio5540[address] [place], [place] [address]Dr.Yilan ChangEO #0.5 103/ul Normal0.0-0.7The [facility] CenterComment on above:Performed By: #### CBC ####[facility] Befwddrnob4430[address] [place], [place] [address]Dr. Yilan ChangEosinophils/100 WBC (Bld)5.2 %Normal0.9-7.0The [facility] Comment on above:Performed By: #### CBC ####[facility] Uxjuwvgvuj4467[address] [place], [place] [address]Dr.Selenalan ChangErythrocyte distribution width (RBC) [Ratio]14.3 %Mokzqu19.0-15.0The [facility] CenterComment on above: Performed By: #### CBC ####[facility] Perorvljhr488[address] [place], [place] [address]Dr.Airam ChangHematocrit (Bld) [Volume fraction]31.4 % Critically low36.0-48.0The [facility] CenterComment on above:Performed By: #### CBC ####[facility] Mhydigbkgd8789[address] [place], [place] [address]Dr. Selenalan ChangHemoglobin (Bld) [Mass/Vol]9.5 g/dLCritically low12.0-16.0The [facility] CenterComment on above:Performed By: #### CBC ####[facility] Pcwnwksyua8[address] [place], [place] [address]Dr.Yilan ChangIG #0.05 10e3/ulCritically high0.00-0.03The [facility] CenterComment on above:Performed By: #### CBC ####[facility] Vbdbqwtxqz[address] [place] [id number].Airam TripathiIG %0.6 %Critically high0.0-0.5The [facility] CenterComment on above:Performed By: #### CBC ####[facility] Frwsepvhpv264[address] [place] [address]Dr.Airam TripathiLYMPH #1.5 103/ulNormal1.2-3.8The [facility] CenterComment on above:Performed By: #### CBC ####[facility] Uhuwdlefxg6337[address] [place], [place] [address]Dr.Airam TripathiLymphocytes/100 WBC (Bld)17.6 %Critically low20.5-60.0The [facility] CenterComment on above: Performed By: #### CBC ####[facility] Sajqgdfvry35[address] [place], [place] [address]Dr.Airam TripathiMANUAL DIFF REQNONormalThe [facility] CenterComment on above:Performed By: #### CBC ####[facility] Ldxxgjsord1525[address] [place], [place] [address]Dr.Airam TripathiH (RBC) [Entitic mass]29.0 fpMifegp75.7-34.0The [facility] CenterComment on above: Performed By: #### CBC ####[facility] Ecfsauimsd[address] [place], [place] [address]Dr.Airam TripathiHC (RBC) [Mass/Vol]30.3 g/dLNormal 29.9-35.2The [facility] CenterComment on above:Performed By: #### CBC ####[facility] Dhkbwjoorf9299[address] [place], [place] [address]Dr. Airam TripathiMCV (RBC) [Entitic vol]95.7 vZYtfttm58.0-99.0The [facility] Comment on above:Performed By: #### CBC ####[facility] Dwkccabgol3099[address] [place], [place] [address]Dr.Airam TripathiMONO #0.7 103/ulNormal0.3-0.8 The [facility] CenterComment on above:Performed By: #### CBC ####[facility] Faxympfmha40[address] [place] [address]Dr.Airam Tripathi Monocytes/100 WBC (Bld)8.5 %Normal1.7-12.0The [facility] CenterComment on above: Performed By: #### CBC ####[facility] Zimuiaotsv[address] [place] [address]Dr.Airam TripathiNEUT #5.8 103/ulNormal1.4-6.5The [facility] CenterComment on above:Performed By: #### CBC ####[facility] Abyxlwwivv75[address] [place] [address]Dr.Airam TripathiNeutrophils/100 WBC (Bld)67.6 %Fxiwjb61.0-75.0The [facility] CenterCombaraga county memorial hospital on above:Performed By: #### CBC ####[facility] Clkvbfufmc8332[address] [place], [place] [address]Dr.Airam TripathiPlatelet mean volume (Bld) [Entitic vol]9.5 fLNormal9.5-13.5 The [facility] CenterCombaraga county memorial hospital on above:Performed By: #### CBC ####[facility] Wcuggxpfmj[address] [place], [place] [address]Dr.Airam MazbgECB428 103/kzKbjnzm658-291Wrd [facility] on above:Performed By: #### CBC ####[facility] Nflmoxumjv1027[address] [place], [place] [address]Dr. Airam ChangRBC3.28 106/ulCritically low4.20-5.40The [facility] on above:Performed By: #### CBC ####[facility] Fhkctogbws9[address] [place], [place] [address]Dr.Airam ChangWBC8.6 103/ulNormal4.0-11.0The [facility] on above:Performed By: #### CBC ####[facility] Kskdlaierh5[address] [place], [place] [address]Dr.Airam ChangPROF 14(COMP METB)on 19-90-0280Kjvpksg [Mass/Vol]3.0 g/dLCritically low3.4-5.0The [facility] CenterComment on above:Performed By: #### CMP ####[facility] Ztfvdoojro7[address] [place] [address]Dr.Airam Tripathi Albumin/Globulin [Mass ratio]0.9 {ratio}NormalThe [facility] CenterComment on above:Performed By: #### CMP ####[facility] Hivulwecwl[address] [place] [address]Dr.Yineil ChangALP [Catalytic activity/Vol]184 U/L Critically qrjw51-863Ukh [facility] CenterComment on above:Performed By: #### CMP ####[facility] Usnnuodthg78[address] [place], [place] [address]Dr. Yineil ChangALT [Catalytic activity/Vol]18 U/KBhheuo73-96Pjt [facility] Comment on above:Performed By: #### CMP ####[facility] Nhhpblkvhs5135[address] [place], [place] [address]Dr.Airam ChangAnion gap [Moles/Vol]11.2 mmol/LNormalThe [facility] CenterComment on above:Performed By: #### CMP ####[facility] Jaocyqbjsv1044[address] [place], [place] [address]Dr. Yineil ChangAST [Catalytic activity/Vol]19 U/MMlbemk38-63Okk [facility] Comment on above:Performed By: #### CMP ####[facility] Gmrpcqzpha2489[address] [place], [place] [address]Dr.Airam ChangBilirubin [Mass/Vol]0.3 mg/dL Normal0.2-1.0The [facility] CenterComment on above:Performed By: #### CMP ####[facility] Tydqgixqmi85[address] [place], [place] [address]Dr. Yineil ChangCalcium [Mass/Vol]8.8 mg/dLNormal8.5-10.1The [facility] CenterComment on above:Performed By: #### CMP ####[facility] Hbgnhrenfm9329[address] [place], [place] [address]Dr.Yilan ChangChloride [Moles/Vol]101 mmol/LNormal 98-107The [facility] Hospitalment on above:Performed By: #### CMP ####[facility] Kpqmzzzgxc2849[address] [place], [place] [address]Dr.Airam ChangCO2 [Moles/Vol]25.4 mmol/YGniygv20.0-32.0The [facility] CenterComment on above: Performed By: #### CMP ####[facility] Xihswqypxb7232[address] [place], [place] [address]Dr.Airam ChangCreatinine [Mass/Vol]1.05 mg/dL Critically high0.55-1.02The [facility] CenterCombaraga [facility] hospital on above:Performed By: #### CMP ####[facility] Jrhkdihvar4679[address] [place], [place] [address]Dr.Selenalan ChangEGFR-AF DJIBOUTIAN>60Normal>=60[facility] on above:Performed By: #### CMP ####[facility] Pztipdfxqm550[address] [place], [place] [address]Dr.Selenalan ChangEGFR-NON AF QSCLKXOR21 mL/min/1.73m2 Critically low>=60The [facility] CenterCombaraga [facility] memorial hospital on above:Performed By: #### CMP ####[facility] Vvduimxfpj9295[address] [place], [place] [address]Dr. Airam ChangGlobulin (S) [Mass/Vol]3.4 g/dLNormalThe [facility] CenterCombaraga county memorial hospital on above:Performed By: #### CMP ####[facility] Fezccfywkw2504[address] [place], [place] [address]Dr.Airam ChangGlucose [Mass/Vol]78 mg/qUOxhtmm83-841 The [facility] CenterComment on above:Performed By: #### CMP ####[facility] Urmiqohxda9149[address] [place], [place] [address]Dr.Selenalan Tripathi Potassium [Moles/Vol]4.6 mmol/LNormal3.5-5.1The [facility] on above:Performed By: #### CMP ####[facility] Vitauirabc8796[address] [place], [place] [address]Dr.Yilan ChangProtein [Mass/Vol]6.4 g/dLNormal6.4-8.2 The [facility] CenterComment on above:Performed By: #### CMP ####[facility] Ccoltzimyn8549[address] [place], [place] [address]Dr.Yilan ChangSodium [Moles/Vol]133 mmol/LCritically fmw790-470Mhl [facility] CenterComment on above:Performed By: #### CMP ####[facility] Vvlluvtwra0817[address] [place], [place] [address]Dr.Yilan ChangUrea nitrogen [Mass/Vol]26.0 mg/dL Critically high7.0-18.0The [facility] CenterComment on above:Performed By: #### CMP ####[facility] Ibspnnqkhh3720[address] [place], [place] [address]Dr. Selenalan ChangUrea nitrogen/Creatinine [Mass ratio]24.8 mg/mgNormalThe [facility] CenterComment on above:Performed By: #### CMP ####[facility] Sitasikgau02[address] [place], [place] [address]Dr.Airam ChangOSMOLALITYon 08-90-8615Ciolvswcuw [Osmolality]287 mosm/cyIzcupb542-557Njf [facility] Comment on above:Performed By: #### OSMO ####[facility] Meqgucnrvr6[address] [place], [place] [address]Dr. Airam DeuceCBC AUTO DIFFon 07-27-2022 BASO #0.0 103/ulNormal0.0-0.1The [facility] CenterComment on above:Performed By: #### CBC ####[facility] Iccmjcobiq6[address] [place], [place] [address]Dr.Selenalan ChangBasophils/100 WBC (Bld)0.4 %Normal0.2-2.0The [facility] CenterComment on above:Performed By: #### CBC ####[facility] Argffzzhup65[address] [place], [place] [address]Dr.Selenalan ChangEO #0.2 103/ul Normal0.0-0.7The [facility] CenterComment on above:Performed By: #### CBC ####[facility] Hlnxegviuj[address] [place] [address]Dr. Selenaneil ChangEosinophils/100 WBC (Bld)2.6 %Normal0.9-7.0The [facility] Comment on above:Performed By: #### CBC ####[facility] Rcpnikzpjm[address] [place], [place] [address]Dr.Selenaneil ChangErythrocyte distribution width (RBC) [Ratio]14.2 %Xnumdi56.0-15.0The [facility] CenterComment on above: Performed By: #### CBC ####[facility] Ltgdfrlrbp[address] [place], [place] [address]Dr.Selenaneil ChangHematocrit (Bld) [Volume fraction]31.3 % Critically low36.0-48.0The [facility] CenterComment on above:Performed By: #### CBC ####[facility] Lomjuzxhyf[address] [place], [place] [address]Dr. Airam ChangHemoglobin (Bld) [Mass/Vol]9.3 g/dLCritically low12.0-16.0The [facility] CenterComment on above:Performed By: #### CBC ####[facility] Zodgbkfthn[address] [place], [place] [address]Dr.Selenaneil ChangIG #0.05 10e3/ulCritically high0.00-0.03The [facility] CenterComment on above:Performed By: #### CBC ####[facility] Owrhnoqiko[address] [place], [place] [address]Dr.Airam ChangIG %0.7 %Critically high0.0-0.5The [facility] CenterComment on above:Performed By: #### CBC ####[facility] Gpgzypaxen59[address] [place], [place] [address]Dr.Yilan ChangLYMPH #1.0 103/ulCritically low1.2-3.8 The [facility] CenterComment on above:Performed By: #### CBC ####[facility] Vgljbbvltt[address] [place], [place] [address]Dr.Airam Tripathi Lymphocytes/100 WBC (Bld)13.4 %Critically low20.5-60.0The [facility] Comment on above:Performed By: #### CBC ####[facility] [address] [place] [address]Dr.Airam TripathiMANUAL DIFF REQNONormalThe [facility] CenterComment on above:Performed By: #### CBC ####[facility] Efwnuzwrqk[address] [place] [address]Dr.Airam TripathiH (RBC) [Entitic mass]28.8 cfEfxyhx61.7-34.0The [facility] CenterComment on above: Performed By: #### CBC ####[facility] Vyyqrwsrcr[address] [place] [address]Dr.Airam TripathiMCHC (RBC) [Mass/Vol]29.7 g/dLCritically low29.9-35.2The [facility] CenterComment on above:Performed By: #### CBC ####[facility] Keenbfcziu6[address] [place], [place] [address]Dr. Airam TripathiV (RBC) [Entitic vol]96.9 tSLkmuoy36.0-99.0The [facility] Comment on above:Performed By: #### CBC ####[facility] Paekekbsbg[address] [place], [place] [address]Dr.Airam TripathiMONO #0.5 103/ulNormal0.3-0.8 The [facility] CenterComment on above:Performed By: #### CBC ####[facility] Ztxbcjqdun17[address] [place], [place] [address]Dr.Airam Tripathi Monocytes/100 WBC (Bld)6.3 %Normal1.7-12.0The [facility] CenterComment on above: Performed By: #### CBC ####[facility] Jmdfstupgz35[address] [place], [place] [address]Dr.Airam DeuceNEUT #5.8 103/ulNormal1.4-6.5The [facility] CenterComment on above:Performed By: #### CBC ####[facility] Kqpnmznilo9[address] [place], [place] [address]Dr.Airam DeuceNeutrophils/100 WBC (Bld)76.6 %Critically high43.0-75.0The [facility] CenterComment on above: Performed By: #### CBC ####[facility] [address]hesydivby[address] [place] [address]Dr.Airam TripathiPlatelet mean volume (Bld) [Entitic vol] 10.3 fLNormal9.5-13.5The [facility] CenterComment on above:Performed By: #### CBC ####[facility] [address]ftlmlzuld[address] [place] [address]Dr. Airam GwftlYKX450 103/bnMpxjqu408-751Duj [facility] CenterComment on above: Performed By: #### CBC ####[facility] Ocnpmbxskh00[address] [place], [place] [address]Dr.Airam ChangRBC3.23 106/ulCritically low4.20-5.40The [facility] CenterComment on above:Performed By: #### CBC ####[facility] Sukwflpuaq35[address] [place], [place] [address]Dr.Airam TripathiWBC7.6 103/ul Normal4.0-11.0The [facility] CenterComment on above:Performed By: #### CBC ####[facility] Pztqszctir[address] [place], [place] [address]Dr. Airam TripathiPROF 14(COMP METB)on [id number] [Mass/Vol]2.9 g/dLCritically low3.4-5.0The [facility] CenterComment on above:Performed By: #### CMP ####[facility] Rboxvbnfse9[address] [place], [place] [address]Dr. Airam TripathiAlbumin/Globulin [Mass ratio]0.8 {ratio}NormalThe [facility] Comment on above:Performed By: #### CMP ####[facility] Ruzsrrubda5[address] [place], [place] [address]Dr.Airam TripathiALP [Catalytic activity/Vol] 175 U/LCritically bjqw10-497Fyh [facility] CenterComment on above:Performed By: #### CMP ####[facility] Kxdqupbeab1060[address] [place], [place] [address]Dr.Yilan ChangALT [Catalytic activity/Vol]24 U/FJjmsqm09-54Rur [facility] CenterComment on above:Performed By: #### CMP ####[facility] Yhsuvvrmcb[address] [place], [place] [address]Dr.Airam ChangAnion gap [Moles/Vol]14.3 mmol/LNormalThe Munger HospitalComment on above:Performed By: #### CMP ####[facility] Ukyllevpcd64[address] [place], [place] [address]Dr.Yineil ChangAST [Catalytic activity/Vol]25 U/PXtojgk09-63Kcj [facility] CenterComment on above:Performed By: #### CMP ####[facility] Bjnjdoqzty8[address] [place], [place] [address]Dr.Airam ChangBilirubin [Mass/Vol]0.2 mg/dLNormal0.2-1.0The [facility] CenterComment on above:Performed By: #### CMP ####[facility] Sfddypufpi[address] [place], [place] [address]Dr.Airam ChangCalcium [Mass/Vol]8.6 mg/dLNormal8.5-10.1The [facility] CenterComment on above:Performed By: #### CMP ####[facility] Smrnvtbqua[address] [place], [place] [address]Dr.Airam ChangChloride [Moles/Vol]102 mmol/UPshhrw16-958Jfq [facility] CenterComment on above:Performed By: #### CMP ####[facility] Rkfqushltk4[address] [place], [place] [address]Dr.Yilan ChangCO2 [Moles/Vol]23.7 mmol/BMeavbh65.0-32.0The [facility] HospitalComment on above:Performed By: #### CMP ####[facility] Cloueanxfj5525[address] [place], [place] [address]Dr.Selenalan ChangCreatinine [Mass/Vol]1.29 mg/dLCritically high0.55-1.02The [facility] CenterComment on above:Performed By: #### CMP ####[facility] Shxbcrzeny5320[address] [place], [place] [address]Dr.Yilan ChangEGFR-AF GMSOEYLC07 mL/min/1.73m2 Critically low>=60The [facility] CenterComment on above:Performed By: #### CMP ####[facility] Vedwjbsowd307[address] [place], [place] [address]Dr. Selenalan ChangEGFR-NON AF TOPDBYNG92 mL/min/1.23d6Vnbiijkdrp low>=60The [facility] CenterComment on above:Performed By: #### CMP ####[facility] Kkpzhxtmrm6553[address] [place], [place] [address]Dr.Airam ChangGlobulin (S) [Mass/Vol]3.6 g/dLNormalThe [facility] CenterComment on above:Performed By: #### CMP ####[facility] Oeutteeezc9293[address] [place], [place] [address]Dr.Sleenalan ChangGlucose [Mass/Vol]84 mg/oCFlznfj48-209Wmv [facility] Comment on above:Performed By: #### CMP ####[facility] Ygjtlmkdlg1907[address] [place], [place] [address]Dr.Ariam ChangPotassium [Moles/Vol]5.0 mmol/LNormal3.5-5.1The [facility] CenterComment on above:Performed By: #### CMP ####[facility] Gaqthrywbq722[address] [place], [place] [address]Dr. Yilan ChangProtein [Mass/Vol]6.5 g/dLNormal6.4-8.2The [facility] CenterComment on above:Performed By: #### CMP ####[facility] Hnewzpqdcj4432[address] [place], [place] [address]Dr.Yilan ChangSodium [Moles/Vol]135 mmol/LCritically yjd641-290Yvz [facility] CenterComment on above:Performed By: #### CMP ####[facility] Xknbtyiuhy[address] [place], [place] [address]Dr. Yilan ChangUrea nitrogen [Mass/Vol]28.0 mg/dLCritically high7.0-18.0The [facility] CenterComment on above:Performed By: #### CMP ####[facility] Zbvpridobb[address] [place] [address]Dr.Selenaneil ChangUrea nitrogen/Creatinine [Mass ratio]21.7 mg/mgNoGood Samaritan HospitalComment on above:Performed By: #### CMP ####[facility] Bxjmkeeleb39[address] [place], [place] [address]Dr.Yilan ChangXR LSPINE MIN 4 VIEWSon [id number] LSPINE MIN 4 VIEWSNoGood Samaritan HospitalOSMOLALITYon 99-25-5097Udcwxbhica [Osmolality]279 mosm/xhFdbrne453-488Hnk [facility] CenterComment on above: Performed By: #### OSMO ####[facility] Hflcbvgwkg18[address] [place], [place] [address]Dr. Selenalan ChangCBC AUTO DIFFon [id number] #0.0 103/ulNormal0.0-0.1The [facility] CenterCombaraga [facility] on above:Performed By: #### CBC ####[facility] Wqfwnizdcf2299[address] [place], [place] [address]Dr. Yilan ChangBasophils/100 WBC (Bld)0.4 %Normal0.2-2.0[facility] HospitalCombar[facility] hospital on above:Performed By: #### CBC ####[facility] Ddgkvbvcpi2413[address] [place], [place] [address]Dr.Yilan ChangEO #0.2 103/ulNormal0.0-0.7The [facility] CenterCombaraga county memorial hospital on above:Performed By: #### CBC ####[facility] Iaoebxlmjp3108[address] [place], [place] [address]Dr.Yilan ChangEosinophils/100 WBC (Bld)2.3 %Normal0.9-7.0[facility] HospitalComment on above:Performed By: #### CBC ####[facility] Vsbopustqw5644[address] [place], [place] [address]Dr.Selenalan ChangErythrocyte distribution width (RBC) [Ratio]13.6 %Normal 11.0-15.0The [facility] CenterComment on above:Performed By: #### CBC ####[facility] Ckvcdrikpg[address] [place], [place] [address]Dr. Selenaneil DeuceHematocrit (Bld) [Volume fraction]32.6 %Critically low36.0-48.0The [facility] CenterComment on above:Performed By: #### CBC ####[facility] Tmxlhawsww388[address] [place], [place] [address]Dr.Selenaneil ChangHemoglobin (Bld) [Mass/Vol]9.5 g/dLCritically low12.0-16.0The [facility] HospitalComment on above:Performed By: #### CBC ####[facility] Yzlpkaijau53[address] [place], [place] [address]Dr.Yilan ChangIG #0.03 10e3/ulNormal0.00-0.03The [facility] CenterComment on above:Performed By: #### CBC ####[facility] Ngtincpjiv2946[address] [place], [place] [address]Dr.Airam ChangIG %0.4 %Normal 0.0-0.5The [facility] CenterComment on above:Performed By: #### CBC ####[facility] Jgaseovjtg[address] [place], [place] [address]Dr.Selenaneil ChangLYMPH #1.4 103/ulNormal1.2-3.8The [facility] CenterComment on above:Performed By: #### CBC ####[facility] Dspnvtsprd77[address] [place], [place] [address]Dr.Selenaneil DeuceLymphocytes/100 WBC (Bld)18.2 %Critically low20.5-60.0The [facility] CenterComment on above:Performed By: #### CBC ####[facility] Acfgirsypo5[address] [place], [place] [address]Dr.Selenaneil ChangMANUAL DIFF REQ NONormalThe [facility] CenterComment on above:Performed By: #### CBC ####[facility] Pyvhtzwugz2020[address] [place], [place] [address]Dr. Airam TripathiMCH (RBC) [Entitic mass]29.5 rpAnedkw60.7-34.0The [facility] Comment on above:Performed By: #### CBC ####[facility] Sm[address]ihxgj[address] [place] [address]Dr.Airam CoxHC (RBC) [Mass/Vol]29.1 g/dL Critically low29.9-35.2The [facility] CenterComment on above:Performed By: #### CBC ####[facility] Xgnxchuumh450[address] [place] [address]Dr. Airam TripathiMCV (RBC) [Entitic vol]101.2 fLCritically high81.0-99.0The [facility] HospitalComment on above:Performed By: #### CBC ####[facility] Dnjecxykop2789[address] [place], [place] [address]Dr.Airam TripathiMONO #0.6 103/ulNormal0.3-0.8The [facility] CenterComment on above:Performed By: #### CBC ####[facility] Adllogudhx157[address] [place], [place] [address]Dr. Airam TripathiMonocytes/100 WBC (Bld)7.9 %Normal1.7-12.0The [facility] Comment on above:Performed By: #### CBC ####[facility] Quulcftcmw5309[address] [place], [place] [address]Dr.Airam TripathiNEUT #5.5 103/ulNormal1.4-6.5 The [facility] CenterComment on above:Performed By: #### CBC ####[facility] Maydwdewrx406[address] [place], [place] [address]Dr.Airam Tripathi Neutrophils/100 WBC (Bld)70.8 %Nsifhx28.0-75.0The [facility] CenterComment on above:Performed By: #### CBC ####[facility] Cdeejclrfy7133[address] [place], [place] [address]Dr.Airam TripathiPlatelet mean volume (Bld) [Entitic vol] 9.6 fLNormal9.5-13.5The [facility] CenterComment on above:Performed By: #### CBC ####[facility] Uystpxznnk9914[address] [place], [place] [address]Dr. Airam TripathiPLT265 103/kxFkwtrz481-311Zbf [facility] CenterComment on above: Performed By: #### CBC ####[facility] Dhdwoowxzh[address] [place] [address]Dr.Yineil ChangRBC3.22 106/ulCritically low4.20-5.40The [facility] CenterComment on above:Performed By: #### CBC ####[facility] Fhemlkaegh[address] [place] [address]Dr.Yineil ChangWBC7.8 103/ul Normal4.0-11.0The [facility] CenterComment on above:Performed By: #### CBC ####[facility] Iwlqwkqick8895[address] [place], [place] [address]Dr. Yilan ChangPROF 14(COMP METB)on 95-49-8628Syzeidv [Mass/Vol]2.9 g/dLCritically low3.4-5.0The [facility] CenterComment on above:Performed By: #### CMP ####[facility] Rigozqximy1383[address] [place], [place] [address]Dr. Airam ChangAlbumin/Globulin [Mass ratio]0.9 {ratio}NormalThe [facility] Comment on above:Performed By: #### CMP ####[facility] Pbnixoutam7165[address] [place], [place] [address]Dr.Yilan ChangALP [Catalytic activity/Vol] 176 U/LCritically smdd32-558Gwf [facility] CenterComment on above:Performed By: #### CMP ####[facility] Xgziazvnfv8506[address] [place], [place] [address]Dr.Yilan ChangALT [Catalytic activity/Vol]19 U/UXapgpx90-43Awy [facility] CenterComment on above:Performed By: #### CMP ####[facility] Mmpcmrjpkg1774[address] [place], [place] [address]Dr.Selenalan ChangAnion gap [Moles/Vol]12.6 mmol/LNormalThe [facility] CenterComment on above:Performed By: #### CMP ####[facility] Fouftbobqg2403[address] [place], [place] [address]Dr.Yilan ChangAST [Catalytic activity/Vol]25 U/VSupagy51-27Erk [facility] CenterComment on above:Performed By: #### CMP ####[facility] Ipcmktbyuk6213[address] [place], [place] [address]Dr.Yilan ChangBilirubin [Mass/Vol]0.2 mg/dLNormal0.2-1.0The [facility] CenterComment on above:Performed By: #### CMP ####[facility] Swpphgrayp[address] [place], [place] [address]Dr.Yilan ChangCalcium [Mass/Vol]8.5 mg/dLNormal8.5-10.1The [facility] CenterComment on above:Performed By: #### CMP ####[facility] Ipisrfhwun3128[address] [place], [place] [address]Dr.Yilan ChangChloride [Moles/Vol]101 mmol/NNwhgpi66-889Hyr [facility] CenterComment on above:Performed By: #### CMP ####[facility] Ixnrrmnzxq7984[address] [place], [place] [address]Dr.Yilan ChangCO2 [Moles/Vol]25.9 mmol/JEzsezx14.0-32.0The [facility] CenterComment on above:Performed By: #### CMP ####[facility] Ohcklmaklf1213[address] [place], [place] [address]Dr.Yilan ChangCreatinine [Mass/Vol]1.11 mg/dLCritically high0.55-1.02The [facility] CenterCombaraga [facility] hospital on above:Performed By: #### CMP ####[facility] Aqasjcrzsi549[address] [place], [place] [address]Dr.Yilan ChangEGFR-AF DJIBOUTIAN>60Normal>=60The [facility] CenterComment on above:Performed By: #### CMP ####[facility] Rmuuhgullc2189[address] [place], [place] [address]Dr.Yilan ChangEGFR-NON AF TGDVPEYO33 mL/min/1.91r9Rxwpvragio low>=60The [facility] CenterComment on above: Performed By: #### CMP ####[facility] Kvgdsgjkei58[address] [place], [place] [address]Dr.Yilan ChangGlobulin (S) [Mass/Vol]3.2 g/dLNormalThe [facility] HospitalComment on above:Performed By: #### CMP ####[facility] Bnqdzaertb2238[address] [place], [place] [address]Dr.Yineil ChangGlucose [Mass/Vol]80 mg/lOMvxtmx10-301Yvi [facility] CenterComment on above:Performed By: #### CMP ####[facility] Empjflsuwc7839[address] [place], [place] [address]Dr.Yilan ChangPotassium [Moles/Vol]3.5 mmol/LNormal3.5-5.1The [facility] CenterComment on above:Performed By: #### CMP ####[facility] Pgcbwxovqn040[address] [place], [place] [address]Dr.Yilan ChangProtein [Mass/Vol]6.1 g/dLCritically low6.4-8.2The [facility] CenterComment on above: Performed By: #### CMP ####[facility] Exbeqrveaj4478[address] [place], [place] [address]Dr.Yilan ChangSodium [Moles/Vol]136 mmol/LNormal 136-145The [facility] CenterComment on above:Performed By: #### CMP ####[facility] Jninfeteyf154[address] [place], [place] [address]Dr.Selenalan ChangUrea nitrogen [Mass/Vol]31.0 mg/dLCritically high7.0-18.0The [facility] CenterComment on above:Performed By: #### CMP ####[facility] Dzsmxktrhu30[address] [place], [place] [address]Dr.Yilan ChangUrea nitrogen/Creatinine [Mass ratio] 27.9 mg/mgNormSelect Medical OhioHealth Rehabilitation HospitalComment on above:Performed By: #### CMP ####[facility] Tqnetndanc1597[address] [place], [place] [address]Dr. Airam ChangOSMOLALITYon 52-34-4158Nxzspopjaa [Osmolality]285 mosm/kgNormal 275-295The [facility] CenterComment on above:Performed By: #### OSMO ####[facility] Iwqehjcmha8880[address] [place], [place] [address]Dr. Yilan ChangCBC AUTO DIFFon 50-98-0092FKWL #0.0 103/ulNormal0.0-0.1The [facility] CenterComment on above:Performed By: #### CBC ####[facility] Igfhjfnqzp3214[address] [place], [place] [address]Dr.Airam ChangBasophils/100 WBC (Bld)0.2 %Normal0.2-2.0The [facility] CenterComment on above:Performed By: #### CBC ####[facility] Qstwknyewc5799[address] [place], [place] [address]Dr.Selenalan ChangEO #0.1 103/ulNormal0.0-0.7The [facility] CenterComment on above:Performed By: #### CBC ####[facility] Hadieibkzu3675[address] [place], [place] [address]Dr.Airam ChangEosinophils/100 WBC (Bld)1.4 %Normal 0.9-7.0The [facility] CenterComment on above:Performed By: #### CBC ####[facility] Lavqeoztso1856[address] [place], [place] [address]Dr.Airam Tripathi Erythrocyte distribution width (RBC) [Ratio]13.0 %Qsnexq49.0-15.0The [facility] CenterComment on above:Performed By: #### CBC ####[facility] Xapkctjjcw3397[address] [place], [place] [address]Dr.Airam TripathiHematocrit (Bld) [Volume fraction]29.3 %Critically low36.0-48.0The [facility] CenterComment on above:Performed By: #### CBC ####[facility] Qordrhtuyx2914[address] [place], [place] [address]Dr.Airam TripathiHemoglobin (Bld) [Mass/Vol]10.3 g/dL Critically low12.0-16.0The [facility] CenterComment on above:Performed By: #### CBC ####[facility] Fcbtukuvpm2124[address] [place], [place] [address]Dr. Airam ChangIG #0.05 10e3/ulCritically high0.00-0.03The [facility] CenterComment on above:Performed By: #### CBC ####[facility] Rjftokbmsm[address] [place] [address]Dr.Airam TripathiIG %0.6 %Critically high0.0-0.5The [facility] CenterComment on above:Performed By: #### CBC ####[facility] Yrisbwbsod90[address] [place] [address]Dr.Airam TripathiLYMPH #0.9 103/ulCritically low1.2-3.8The [facility] CenterComment on above:Performed By: #### CBC ####[facility] Xyzureyukp84[address] [place] [address]Dr.Airam TripathiLymphocytes/100 WBC (Bld)10.6 %Critically low20.5-60.0The [facility] CenterComment on above:Performed By: #### CBC ####[facility] Rtmulqwzqh9918[address] [place], [place] [address]Dr.Airam TripathiMANUAL DIFF REQ NONormalThe [facility] CenterComment on above:Performed By: #### CBC ####[facility] Ynbtebwenh2211[address] [place], [place] [address]Dr. Airam DeuceH (RBC) [Entitic mass]29.3 naVryfcg56.7-34.0[facility] Comment on above:Performed By: #### CBC ####[facility] Mmbggyzsnf242[address] [place], [place] [address]Dr.Airam DeuceHC (RBC) [Mass/Vol]35.2 g/dL Jogdgj23.9-35.2[facility] HospitalComment on above:Performed By: #### CBC ####[facility] Foruvdvgap0124[address] [place], [place] [address]Dr. Airam DeuceV (RBC) [Entitic vol]83.5 hSHqtamb82.0-99.0The [facility] Comment on above:Performed By: #### CBC ####[facility] Dbfnqdthdu9688[address] [place], [place] [address]Dr.Airam KodakO #0.5 103/ulNormal0.3-0.8 The [facility] HospitalComment on above:Performed By: #### CBC ####[facility] Xoekqpxlvz39[address] [place] [address]Dr.Airam Tripathi Monocytes/100 WBC (Bld)5.1 %Normal1.7-12.0The [facility] CenterComment on above: Performed By: #### CBC ####[facility] Qufnewmvbk6701[address] [place], [place] [address]Dr.Airam TripathiNEUT #7.3 103/ulCritically high1.4-6.5 The [facility] CenterComment on above:Performed By: #### CBC ####[facility] Gwjithzhoi[address] [place], [place] [address]Dr.Airam Tripathi Neutrophils/100 WBC (Bld)82.1 %Critically high43.0-75.0The [facility] Comment on above:Performed By: #### CBC ####[facility] Pdjavslpsr9[address] [place], [place] [address]Dr.Airam TripathiPlatelet mean volume (Bld) [Entitic vol]8.9 fLCritically low9.5-13.5The [facility] CenterComment on above: Performed By: #### CBC ####[facility] Iyseunitni20[address] [place], [place] [address]Dr.Airam TripathiPLT290 103/bwJprcip514-537Ddq [facility] CenterComment on above:Performed By: #### CBC ####[facility] Tmsebhknxe6806[address] [place], [place] [address]Dr.Airam TripathiRBC3.51 106/ul Critically low4.20-5.40The [facility] CenterComment on above:Performed By: #### CBC ####[facility] Ryhznxhwcp4593[address] [place], [place] [address]Dr. Airam TripathiWBC8.9 103/ulNormal4.0-11.0[facility] HospitalComment on above: Performed By: #### CBC ####[facility] Lqjkkkdtlr64[address] [place], [place] [address]Dr.Airam TripathiPROF 14(COMP METB)on 45-99-6649Okxoerq [Mass/Vol]3.2 g/dLCritically low3.4-5.0The [facility] CenterComment on above: Performed By: #### CMP ####[facility] Booabdohvc5[address] [place], [place] [address]Dr.Yilan ChangAlbumin/Globulin [Mass ratio]0.9 {ratio} NormalThe [facility] CenterComment on above:Performed By: #### CMP ####[facility] Igwznjeylz9490[address] [place], [place] [address]Dr.Yilan ChangALP [Catalytic activity/Vol]194 U/LCritically gclt24-612Lhc [facility] CenterComment on above:Performed By: #### CMP ####[facility] Kmayraxrfl[address] [place], [place] [address]Dr.Yilan ChangALT [Catalytic activity/Vol]19 U/LNormal 14-59The [facility] CenterComment on above:Performed By: #### CMP ####[facility] Oeataepwuj37[address] [place], [place] [address]Dr.Yilan ChangAnion gap [Moles/Vol]11.3 mmol/LNormalThe [facility] CenterComment on above:Performed By: #### CMP ####[facility] Tmsgxznuen17[address] [place], [place] [address]Dr.Yilan ChangAST [Catalytic activity/Vol]24 U/ZReptar77-31[facility] Medical CenterComment on above:Performed By: #### CMP ####[facility] Omyxzhalvo[address] [place], [place] [address]Dr.Yilan ChangBilirubin [Mass/Vol]0.2 mg/dLNormal0.2-1.0The [facility] CenterComment on above:Performed By: #### CMP ####[facility] Ygxnmuacvd[address] [place], [place] [address]Dr.Yilan ChangCalcium [Mass/Vol]8.7 mg/dLNormal8.5-10.1The [facility] CenterComment on above:Performed By: #### CMP ####[facility] Biguyrvxqe4664[address] [place], [place] [address]Dr.Yilan ChangChloride [Moles/Vol]101 mmol/MJithrr14-003Sdw [facility] CenterComment on above:Performed By: #### CMP ####[facility] Kmbmymewbx[address] [place], [place] [address]Dr.Selenalan ChangCO2 [Moles/Vol]27.2 mmol/RRylmga46.0-32.0The [facility] CenterComment on above:Performed By: #### CMP ####[facility] Smjhdjvukf[address] [place], [place] [address]Dr.Airam ChangCreatinine [Mass/Vol]1.17 mg/dLCritically high0.55-1.02The [facility] CenterComment on above:Performed By: #### CMP ####[facility] Gbosndcbmr[address] [place], [place] [address]Dr.Selenalan ChangEGFR-AF DVQUGSDW45 mL/min/1.73m2 Critically low>=60The [facility] CenterComment on above:Performed By: #### CMP ####[facility] Mehgglobdq[address] [place], [place] [address]Dr. Selenalan ChangEGFR-NON AF FGEEZXEX52 mL/min/1.98u1Vnzwokkgcn low>=60The [facility] CenterComment on above:Performed By: #### CMP ####[facility] Mxukwhescq[address] [place], [place] [address]Dr.Airam ChangGlobulin (S) [Mass/Vol]3.5 g/dLNormalThe [facility] CenterComment on above:Performed By: #### CMP ####[facility] Ijqzdojqrm[address] [place], [place] [address]Dr.Selenalan ChangGlucose [Mass/Vol]86 mg/nNLogdhj42-100Xpg [facility] Comment on above:Performed By: #### CMP ####[facility] Xqibfbnsea[address] [place], [place] [address]Dr.Selenalan ChangPotassium [Moles/Vol]5.5 mmol/LCritically high3.5-5.1The [facility] CenterComment on above:Performed By: #### CMP ####[facility] [address]eyou[address]ulx[address] [place] [address]Dr.Airam ChangProtein [Mass/Vol]6.7 g/dLNormal6.4-8.2The [facility] Comment on above:Performed By: #### CMP ####[facility] Idcplkphqj5[address] [place], [place] [address]Dr.Airam ChangSodium [Moles/Vol]134 mmol/L Critically sdm417-208Mao [facility] CenterComment on above:Performed By: #### CMP ####[facility] Osjptjhbre35[address] [place], [place] [address]Dr. Selenalan ChangUrea nitrogen [Mass/Vol]26.0 mg/dLCritically high7.0-18.0The [facility] CenterComment on above:Performed By: #### CMP ####[facility] Yeilixyunh85[address] [place], [place] [address]Dr.Selenalan ChangUrea nitrogen/Creatinine [Mass ratio]22.2 mg/mgNormalThe [facility] CenterComment on above:Performed By: #### CMP ####[facility] Dkradaziul2425[address] [place], [place] [address]Dr.Airam ChangOSMOLALITYon 18-85-3465Zltqdkgzbr [Osmolality]273 mosm/kgCritically gws922-543Lwn [facility] CenterComment on above:Performed By: #### OSMO ####[facility] Xnxofljnfw29[address] [place], [place] [address]Dr. Selenaneil DeuceCBC AUTO DIFFon 84-42-5042RWKF #0.0 103/ulNormal0.0-0.1The [facility] CenterComment on above:Performed By: #### CBC ####[facility] Stdnxtkfug95[address] [place], [place] [address]Dr. Airam ChangBasophils/100 WBC (Bld)0.4 %Normal0.2-2.0The [facility] CenterComment on above:Performed By: #### CBC ####[facility] Jdwgtxdglj940[address] [place], [place] [address]Dr.Selenalan ChangEO #0.1 103/ulNormal0.0-0.7The Sophie HospitalComment on above:Performed By: #### CBC ####[facility] Vhnaodvfkc26[address] [place], [place] [address]Dr.Airam ChangEosinophils/100 WBC (Bld)1.6 %Normal0.9-7.0The [facility] CenterComment on above:Performed By: #### CBC ####[facility] Cyexaniiuj3728[address] [place], [place] [address]Dr.Airam ChangErythrocyte distribution width (RBC) [Ratio]13.1 %Normal 11.0-15.0The [facility] HospitalComment on above:Performed By: #### CBC ####[facility] Bwblcjydcw7332[address] [place], [place] [address]Dr. Airam ChangHematocrit (Bld) [Volume fraction]33.7 %Critically low36.0-48.0The [facility] HospitalComment on above:Performed By: #### CBC ####[facility] Jixojfflex8970[address] [place], [place] [address]Dr.Airam ChangHemoglobin (Bld) [Mass/Vol]9.9 g/dLCritically low12.0-16.0The [facility] HospitalComment on above:Performed By: #### CBC ####[facility] Sdtslbpjlk74[address] [place], [place] [address]Dr.Airam ChangIG #0.05 10e3/ulCritically high0.00-0.03 The [facility] CenterComment on above:Performed By: #### CBC ####[facility] Hrdtajjthd3839[address] [place], [place] [address]Dr.Airam ChangIG % 0.6 %Critically high0.0-0.5The [facility] HospitalComment on above:Performed By: #### CBC ####[facility] Wcegttoxgm2313[address] [place], [place] [address]Dr.Selenalan ChangLYMPH #1.2 103/ulNormal1.2-3.8The [facility] HospitalComment on above:Performed By: #### CBC ####[facility] Wzoprlgort5054[address] [place], [place] [address]Dr.Yilan ChangLymphocytes/100 WBC (Bld)15.5 % Critically low20.5-60.0The [facility] CenterComment on above:Performed By: #### CBC ####[facility] Dmzaoarsox5732[address] [place], [place] [address]Dr. Airam TripathiMANUAL DIFF REQNONormalThe [facility] CenterComment on above: Performed By: #### CBC ####[facility] Pvwfmnujdc8164[address] [place], [place] [address]Dr.Airam TripathiH (RBC) [Entitic mass]28.7 pgNormal 26.7-34.0The [facility] HospitalComment on above:Performed By: #### CBC ####[facility] Owcpogapdl232[address] [place], [place] [address]Dr. Airam TripathiHC (RBC) [Mass/Vol]29.4 g/dLCritically low29.9-35.2The [facility] CenterComment on above:Performed By: #### CBC ####[facility] Yqivcvccet3690[address] [place], [place] [address]Dr.Airam TripathiV (RBC) [Entitic vol]97.7 xBDaxyes25.0-99.0The [facility] CenterComment on above: Performed By: #### CBC ####[facility] Ouigwwihcz[address] [place], [place] [address]Dr.Airam TripathiMONO #0.6 103/ulNormal0.3-0.8The [facility] HospitalComment on above:Performed By: #### CBC ####[facility] Ccpyuhrouv4424[address] [place], [place] [address]Dr.Airam TripathiMonocytes/100 WBC (Bld)7.7 %Normal1.7-12.0The [facility] CenterComment on above:Performed By: #### CBC ####[facility] Xjiyktpqsb350[address] [place], [place] [address]Dr.Airam TripathiNEUT #5.9 103/ulNormal1.4-6.5The [facility] HospitalComment on above:Performed By: #### CBC ####[facility] [address]rgv[address] [place] [address]Dr.Selenaneil DeuceNeutrophils/100 WBC (Bld)74.2 %Normal 43.0-75.0The [facility] CenterComment on above:Performed By: #### CBC ####[facility] Jlecblgcmr[address] [place] [address]Dr. Airam DeucePlatelet mean volume (Bld) [Entitic vol]9.4 fLCritically low9.5-13.5 The [facility] CenterComment on above:Performed By: #### CBC ####[facility] Vhimasczhw065[address] [place], [place] [address]Dr.Airam VdutuCBD118 103/piFsgzph408-236Elx [facility] CenterComment on above:Performed By: #### CBC ####[facility] Gpnnwvfgnr[address] [place], [place] [address]Dr. Airam ChangRBC3.45 106/ulCritically low4.20-5.40The [facility] CenterComment on above:Performed By: #### CBC ####[facility] Walzblqzvj8337[address] [place], [place] [address]Dr.Airam TripathiWBC7.9 103/ulNormal4.0-11.0The [facility] CenterComment on above:Performed By: #### CBC ####[facility] Fporpiefvx8269[address] [place], [place] [address]Dr.Airam TripathiPROF 14(COMP METB)on 32-80-1427Coynmwd [Mass/Vol]3.4 g/dLNormal3.4-5.0The [facility] Comment on above:Performed By: #### CMP ####[facility] Hzmjhijnpj7597[address] [place], [place] [address]Dr.Airam TripathiAlbumin/Globulin [Mass ratio] 1.1 {ratio}NormalThe [facility] CenterComment on above:Performed By: #### CMP ####[facility] Zcgsrpjwpx4[address] [place], [place] [address]Dr. Airam TripathiALP [Catalytic activity/Vol]197 U/LCritically hfct08-510Ctv [facility] CenterComment on above:Performed By: #### CMP ####[facility] Xdoklyxkyn[address] [place] [address]Dr.Yilan ChangALT [Catalytic activity/Vol]18 U/TZmhhqm44-88Wlc [facility] CenterComment on above:Performed By: #### CMP ####[facility] Beeeudozsf[address] [place] [address]Dr.Yilan ChangAnion gap [Moles/Vol]12.3 mmol/LNormalThe [facility] Comment on above:Performed By: #### CMP ####[facility] Pmdylsafzn[address] [place], [place] [address]Dr.Yilan ChangAST [Catalytic activity/Vol]26 U/MWxgurj46-66Rbz [facility] CenterCom[facility] on above:Performed By: #### CMP ####[facility] Vwikmmlrgb8074[address] [place], [place] [address]Dr. Yilan ChangBilirubin [Mass/Vol]0.3 mg/dLNormal0.2-1.0The [facility] Comment on above:Performed By: #### CMP ####[facility] Puvgsztcqh3064[address] [place], [place] [address]Dr.Yilan ChangCalcium [Mass/Vol]8.6 mg/dL Normal8.5-10.1The [facility] CenterComment on above:Performed By: #### CMP ####[facility] Mrtxjaclow4[address] [place], [place] [address]Dr. Yilan ChangChloride [Moles/Vol]96 mmol/LCritically gji85-856Sfn [facility] CenterComment on above:Performed By: #### CMP ####[facility] Eivlomgjpy[address] [place], [place] [address]Dr.Yilan ChangCO2 [Moles/Vol] 27.8 mmol/DWpyuwd15.0-32.0The [facility] CenterComment on above:Performed By: #### CMP ####[facility] Yltmeagrjc3487[address] [place], [place] [address]Dr.Yilan ChangCreatinine [Mass/Vol]1.55 mg/dLCritically high0.55-1.02The [facility] CenterComment on above:Performed By: #### CMP ####[facility] [address]qm[address] [place] [address]Dr.Yilan ChangEGFR-AF MOGDGXXE10 mL/min/1.93n9Prntsidzqp low>=60The [facility] CenterCom[facility] on above: Performed By: #### CMP ####[facility] Xd[address]ldpfrp[address] [place] [address]Dr.Yilan ChangEGFR-NON AF PCDBMYBH69 mL/min/1.73m2 Critically low>=60The [facility] CenterComment on above:Performed By: #### CMP ####[facility] Hucnftgnei[address] [place] [address]Dr. Airam ChangGlobulin (S) [Mass/Vol]3.2 g/dLNormalThCommunity Memorial HospitalCombaraga [facility] hospital on above:Performed By: #### CMP ####[facility] Gvklloygqe4949[address] [place], [place] [address]Dr.Airam ChangGlucose [Mass/Vol]87 mg/uREewqun55-169 [facility]Com[facility] on above:Performed By: #### CMP ####[facility] Flxsakawax[address] [place], [place] [address]Dr.Airam Tripathi Potassium [Moles/Vol]5.1 mmol/LNormal3.5-5.1[facility] on above:Performed By: #### CMP ####[facility] Kchztrckca175[address] [place], [place] [address]Dr.Airam ChangProtein [Mass/Vol]6.6 g/dLNormal6.4-8.2 [facility] HospitalCom[facility] on above:Performed By: #### CMP ####[facility] Ypevfpxjvz9401[address] [place], [place] [address]Dr.Airam ChangSodium [Moles/Vol]131 mmol/LCritically mfw550-887JwzLicking Memorial Hospital on above:Performed By: #### CMP ####[facility] Jedqavtrri1678[address] [place], [place] [address]Dr.Airam ChangUrea nitrogen [Mass/Vol]31.0 mg/dL Critically high7.0-18.0The [facility] CenterComment on above:Performed By: #### CMP ####[facility] Swvsgcfwvq7711[address] [place], [place] [address]Dr. Yilan ChangUrea nitrogen/Creatinine [Mass ratio]20.0 mg/mgNormalThe [facility] CenterComment on above:Performed By: #### CMP ####[facility] Qspjacnyps6665[address] [place], [place] [address]Dr.Airam ChangOSMOLALITYon 80-76-1909Cuocfubkfi [Osmolality]281 mosm/fhPgvdet665-101Mcs [facility] Comment on above:Performed By: #### OSMO ####[facility] Esljlcarkk4936[address] [place], [place] [address]Dr. Selenaneil ChangCBC AUTO DIFFon 06-29-2022 BASO #0.0 103/ulNormal0.0-0.1The [facility] CenterComment on above:Performed By: #### CBC ####[facility] Mbikjlmnuk9716[address] [place], [place] [address]Dr.Yilan ChangBasophils/100 WBC (Bld)0.3 %Normal0.2-2.0The [facility] CenterComment on above:Performed By: #### CBC ####[facility] Unvvhcrlzp1153[address] [place], [place] [address]Dr.Yilan ChangEO #0.2 103/ul Normal0.0-0.7The [facility] CenterComment on above:Performed By: #### CBC ####[facility] Qprfqwejla478[address] [place], [place] [address]Dr. Yilan ChangEosinophils/100 WBC (Bld)2.3 %Normal0.9-7.0The [facility] Comment on above:Performed By: #### CBC ####[facility] Lcawcudvuj8[address] [place], [place] [address]Dr.Yilan ChangErythrocyte distribution width (RBC) [Ratio]13.2 %Qwvvum43.0-15.0The [facility] CenterComment on above: Performed By: #### CBC ####[facility] Abyqiehnrz7584[address] [place], [place] [address]Dr.Airam TripathiHematocrit (Bld) [Volume fraction]28.2 % Critically low36.0-48.0The [facility] CenterComment on above:Performed By: #### CBC ####[facility] Wxtpirgrgg9145[address] [place], [place] [address]Dr. Airam ChangHemoglobin (Bld) [Mass/Vol]9.1 g/dLCritically low12.0-16.0The [facility] HospitalComment on above:Performed By: #### CBC ####[facility] Zyjdtioary5732[address] [place], [place] [address]Dr.Yilan ChangIG #0.03 10e3/ulNormal0.00-0.03The [facility] CenterComment on above:Performed By: #### CBC ####[facility] Akmgtvbzqw390[address] [place], [place] [address]Dr. Airam ChangIG %0.4 %Normal0.0-0.5The [facility] CenterComment on above:Performed By: #### CBC ####[facility] Kcasafhyhf[address]64[address] [place], [place] [address]Dr.Airam ChangLYMPH #1.0 103/ulCritically low1.2-3.8The [facility] CenterComment on above:Performed By: #### CBC ####[facility] Hyhfjupdnm124[address] [place], [place] [address]Dr.Airam TripathiLymphocytes/100 WBC (Bld)12.8 %Critically low20.5-60.0The [facility] HospitalComment on above: Performed By: #### CBC ####[facility] Hsdcmxpjgr[address] [place], [place] [address]Dr.Selenalan DeuceMANUAL DIFF REQNONormalThe [facility] CenterComment on above:Performed By: #### CBC ####[facility] Aruzovjyye40[address] [place], [place] [address]Dr.Airam TripathiMCH (RBC) [Entitic mass]29.9 lbOyhtyr55.7-34.0The [facility] HospitalComment on above: Performed By: #### CBC ####[facility] [address]okmf[address] [place] [address]Dr.Airam TripathiMCHC (RBC) [Mass/Vol]32.3 g/dLNormal 29.9-35.2The [facility] CenterComment on above:Performed By: #### CBC ####[facility] [address]awhrytzq[address] [place] [address]Dr. Airam TripathiMCV (RBC) [Entitic vol]92.8 bRGcquld61.0-99.0The [facility] Comment on above:Performed By: #### CBC ####[facility] Puomkdjlus9[address] [place], [place] [address]Dr.Airam TripathiMONO #0.5 103/ulNormal0.3-0.8 The [facility] CenterComment on above:Performed By: #### CBC ####[facility] Tiutitzxuf2766[address] [place], [place] [address]Dr.Airam Tripathi Monocytes/100 WBC (Bld)6.0 %Normal1.7-12.0The [facility] CenterComment on above: Performed By: #### CBC ####[facility] Ticvsbqjqw[address] [place], [place] [address]Dr.Airam TripathiNEUT #6.0 103/ulNormal1.4-6.5The [facility] CenterComment on above:Performed By: #### CBC ####[facility] Ynezfjlhye1393[address] [place], [place] [address]Dr.Airam TripathiNeutrophils/100 WBC (Bld)78.2 %Critically high43.0-75.0The [facility] CenterComment on above: Performed By: #### CBC ####[facility] Jsimfmreqn322[address] [place], [place] [address]Dr.Airam TripathiPlatelet mean volume (Bld) [Entitic vol] 9.0 fLCritically low9.5-13.5The [facility] CenterComment on above:Performed By: #### CBC ####[facility] Kjfxnefalr4101[address] [place], [place] [address]Dr.Airam TripathiPLT332 103/yaVjulqk800-633Wku [facility] CenterComment on above:Performed By: #### CBC ####[facility] Yzhlanwxpt[address] [place] [address]Dr.Yineil ChangRBC3.04 106/ulCritically low4.20-5.40The [facility] CenterComment on above:Performed By: #### CBC ####[facility] Nfiqlfxgjk899[address] [place], [place] [address]Dr.Yineil ChangWBC7.7 103/ul Normal4.0-11.0The [facility] CenterComment on above:Performed By: #### CBC ####[facility] Rytueqobnv402[address] [place], [place] [address]Dr. Selenalan ChangPROF 14(COMP METB)on 69-61-8915Ehteowy [Mass/Vol]3.2 g/dLCritically low3.4-5.0The [facility] CenterComment on above:Performed By: #### CMP ####[facility] Usijywpuov8934[address] [place], [place] [address]Dr. Airma ChangAlbumin/Globulin [Mass ratio]0.9 {ratio}NormalThe [facility] Comment on above:Performed By: #### CMP ####[facility] Cezoougybr92[address] [place], [place] [address]Dr.Selenalan ChangALP [Catalytic activity/Vol] 135 U/LCritically vnwv66-156Dom [facility] CenterComment on above:Performed By: #### CMP ####[facility] Xnxyqtttpv0[address] [place], [place] [address]Dr.Yilan ChangALT [Catalytic activity/Vol]25 U/IApodok28-06Vgb [facility] CenterComment on above:Performed By: #### CMP ####[facility] Depeujxrex222[address] [place], [place] [address]Dr.Airam ChangAnion gap [Moles/Vol]9.1 mmol/LNormalThe [facility] CenterComment on above:Performed By: #### CMP ####[facility] Weejckrilk6895[address] [place], [place] [address]Dr.Yilan ChangAST [Catalytic activity/Vol]34 U/ZPuwqvv74-59Hsj [facility] CenterComment on above:Performed By: #### CMP ####[facility] Vqtljhdvja2146[address] [place], [place] [address]Dr.Yilan ChangBilirubin [Mass/Vol]0.3 mg/dLNormal0.2-1.0The [facility] CenterComment on above:Performed By: #### CMP ####[facility] Abohmhacby[address] [place], [place] [address]Dr.Yilan ChangCalcium [Mass/Vol]8.6 mg/dLNormal8.5-10.1The [facility] CenterComment on above:Performed By: #### CMP ####[facility] Xcmrtmzyjc9987[address] [place], [place] [address]Dr.Yilan ChangChloride [Moles/Vol]99 mmol/MCxhhvf35-970Czm [facility] CenterComment on above:Performed By: #### CMP ####[facility] Cbhgryeffs7656[address] [place], [place] [address]Dr.Yilan ChangCO2 [Moles/Vol]29.1 mmol/HSkfgwq01.0-32.0The [facility] CenterComment on above:Performed By: #### CMP ####[facility] Clxacmmdxs1970[address] [place], [place] [address]Dr.Yilan ChangCreatinine [Mass/Vol]1.40 mg/dLCritically high0.55-1.02The [facility] CenterComment on above:Performed By: #### CMP ####[facility] Gmsjkfomhu11[address] [place], [place] [address]Dr.Yilan ChangEGFR-AF UENBADPT19 mL/min/1.73m2 Critically low>=60The [facility] CenterComment on above:Performed By: #### CMP ####[facility] Ludwfxhihy9[address] [place], [place] [address]Dr. Yilan ChangEGFR-NON AF MPJZDOPG80 mL/min/1.98f1Zsxbtchprz low>=60The [facility] CenterComment on above:Performed By: #### CMP ####[facility] Sbwjonqanc8035[address] [place], [place] [address]Dr.Yilan ChangGlobulin (S) [Mass/Vol]3.4 g/dLNormSelect Medical [facility] Rehabilitation HospitalComment on above:Performed By: #### CMP ####[facility] Dpizlkphqi7107[address] [place], [place] [address]Dr.Yilan ChangGlucose [Mass/Vol]83 mg/xXQnnsux46-900Xwq [facility] Comment on above:Performed By: #### CMP ####[facility] Hqwnikqgpx7432[address] [place], [place] [address]Dr.Selenalan ChangPotassium [Moles/Vol]4.2 mmol/LNormal3.5-5.1The [facility] CenterComment on above:Performed By: #### CMP ####[facility] Uonzjgwxos6265[address] [place], [place] [address]Dr. Yilan ChangProtein [Mass/Vol]6.6 g/dLNormal6.4-8.2The [facility] CenterComment on above:Performed By: #### CMP ####[facility] Dqxmkcygqq9678[address] [place], [place] [address]Dr.Airam ChangSodium [Moles/Vol]133 mmol/LCritically ugb035-909Yoz [facility] CenterComment on above:Performed By: #### CMP ####[facility] Jwvsmgnkqj8548[address] [place], [place] [address]Dr. Selenalan ChangUrea nitrogen [Mass/Vol]37.0 mg/dLCritically high7.0-18.0The [facility] CenterComment on above:Performed By: #### CMP ####[facility] Xzrbytxwbw9088[address] [place], [place] [address]Dr.Yilan ChangUrea nitrogen/Creatinine [Mass ratio]26.4 mg/mgNormSelect Medical [facility] Rehabilitation HospitalComment on above:Performed By: #### CMP ####[facility] Tiksbvgmiq0137[address] [place], [place] [address]Dr.Airam ChangBNPon 54-09-4026Zbcypntyxtg peptide B (Bld) [Mass/Vol]5826.0 pg/mLCritically high<=900.0The [facility] CenterComment on above:Performed By: #### BNP, CMP ####[facility] Idmafnbxtn[address] [place], [place] [address]Dr. Airam ChangCBC AUTO DIFFon 86-46-7938GCBX # 0.0 103/ulNormal0.0-0.1The [facility] CenterComment on above:Performed By: #### CBC ####[facility] Fkrobixaiv14[address] [place], [place] [address]Dr. Airam ChangBasophils/100 WBC (Bld)0.4 %Normal0.2-2.0The [facility] CenterComment on above:Performed By: #### CBC ####[facility] Nxyrppruhl5769[address] [place], [place] [address]Dr.Yilan ChangEO #0.1 103/ulNormal0.0-0.7The [facility] CenterComment on above:Performed By: #### CBC ####[facility] Sitoeeizzl24[address] [place], [place] [address]Dr.Airam ChangEosinophils/100 WBC (Bld)1.3 %Normal0.9-7.0The [facility] CenterComment on above:Performed By: #### CBC ####[facility] Icflpkucbl62[address] [place], [place] [address]Dr.Airam ChangErythrocyte distribution width (RBC) [Ratio]13.4 %Normal 11.0-15.0The [facility] CenterComment on above:Performed By: #### CBC ####[facility] Trzrynqfca7[address] [place], [place] [address]Dr. Airam ChangHematocrit (Bld) [Volume fraction]27.3 %Critically low36.0-48.0The [facility] CenterComment on above:Performed By: #### CBC ####[facility] Ozkjyigpkv[address] [place], [place] [address]Dr.Airam ChangHemoglobin (Bld) [Mass/Vol]8.6 g/dLCritically low12.0-16.0The [facility] CenterComment on above:Performed By: #### CBC ####[facility] Yraihtfydn[address] [place], [place] [address]Dr.Airam TripathiIG #0.08 10e3/ulCritically high0.00-0.03 The [facility] CenterComment on above:Performed By: #### CBC ####[facility] [address] [place] [address]Dr.Airam TripathiIG % 0.8 %Critically high0.0-0.5The [facility] CenterComment on above:Performed By: #### CBC ####[facility] [address]ntgwkyhbn[address] [place], [place] [address]Dr.Airam TripathiLYMPH #1.9 103/ulNormal1.2-3.8The [facility] CenterComment on above:Performed By: #### CBC ####[facility] Dlbmcypjmq[address] [place], [place] [address]Dr.Airam TripathiLymphocytes/100 WBC (Bld)19.3 % Critically low20.5-60.0The [facility] CenterComment on above:Performed By: #### CBC ####[facility] Uhvckwailh64[address] [place], [place] [address]Dr. Airam TripathiMANUAL DIFF REQNONormalThe [facility] CenterComment on above: Performed By: #### CBC ####[facility] Cdqwbmgpbr29[address] [place], [place] [address]Dr.Airam TripathiST. [facility]KE'[facility] (RBC) [Entitic mass]29.6 pgNormal 26.7-34.0The [facility] CenterComment on above:Performed By: #### CBC ####[facility] Sphhalvfmu[address] [place], [place] [address]Dr. Airam TripathiUPSTATE UNIV[facility] (RBC) [Mass/Vol]31.5 g/fSQjftyf84.9-35.2The [facility] Comment on above:Performed By: #### CBC ####[facility] Adykhlgxnv45[address] [place], [place] [address]Dr.Airam TripathiV (RBC) [Entitic vol]93.8 fL Ggvalg07.0-99.0The [facility] CenterComment on above:Performed By: #### CBC ####[facility] [address]ockxsk[address] [place] [address]Dr. Airam TripathiMONO #0.6 103/ulNormal0.3-0.8The [facility] CenterComment on above: Performed By: #### CBC ####[facility] C[address]rhjyxb[address] [place] [address]Dr.Yilan ChangMonocytes/100 WBC (Bld)6.5 %Normal 1.7-12.0The [facility] CenterComment on above:Performed By: #### CBC ####[facility] Igjnvebzwp5636[address] [place], [place] [address]Dr. Selenalan ChangNEUT #6.9 103/ulCritically high1.4-6.5The [facility] CenterComment on above:Performed By: #### CBC ####[facility] Hwfoznhdyp9827[address] [place], [place] [address]Dr.Yilan ChangNeutrophils/100 WBC (Bld)71.7 %Normal 43.0-75.0The [facility] CenterComment on above:Performed By: #### CBC ####[facility] Lnjfcejwhg94[address] [place], [place] [address]Dr. Yilan ChangPlatelet mean volume (Bld) [Entitic vol]8.5 fLCritically low9.5-13.5 The [facility] CenterComment on above:Performed By: #### CBC ####[facility] Okjgvxtrgk32[address] [place], [place] [address]Dr.Selenalan EpzlfHLG294 103/gpCjpydb970-837Olf [facility] CenterCombaraga [facility] memorial [facility] on above:Performed By: #### CBC ####[facility] Ltgfocarnz70[address] [place], [place] [address]Dr. Yilan ChangRBC2.91 106/ulCritically low4.20-5.40The [facility] CenterCombaraga county memorial hospital on above:Performed By: #### CBC ####[facility] Nwatfuzhho0497[address] [place], [place] [address]Dr.Selenalan ChangWBC9.7 103/ulNormal4.0-11.0The [facility] CenterComment on above:Performed By: #### CBC ####[facility] Ol[address]klvrpv[address] [place] [address]Dr.Airam ChangPROF 14(COMP METB)on 79-86-0451Ztcdlbd [Mass/Vol]2.8 g/dLCritically low3.4-5.0The [facility] CenterComment on above:Performed By: #### BNP, CMP ####[facility] Ovlmiopnfq[address] [place] [address]Dr. Airam Tripathi Albumin/Globulin [Mass ratio]0.9 {ratio}NormalThe [facility] CenterComment on above:Performed By: #### BNP, CMP ####[facility] Ilyxfarxgw[address] [place] [address]Dr. Airam ChangALP [Catalytic activity/Vol]125 U/L Critically yqis08-524Lpl [facility] CenterComment on above:Performed By: #### BNP, CMP ####[facility] Nngfivempq4004[address] [place], [place] [address]Dr. Airam ChangALT [Catalytic activity/Vol]16 U/OPrmsex78-23Xnx [facility] CenterComment on above:Performed By: #### BNP, CMP ####[facility] Nnadkqvjbn4533[address] [place], [place] [address]Dr. Airam TripathiAnion gap [Moles/Vol]11.4 mmol/LNormalThe [facility] CenterComment on above:Performed By: #### BNP, CMP ####[facility] Spymppsnuw[address] [place] [address]Dr. Airam ChangAST [Catalytic activity/Vol]23 U/NLsjjtq81-79Hwu [facility] CenterComment on above:Performed By: #### BNP, CMP ####[facility] Kbeaameobq16[address] [place], [place] [address]Dr. Airam Tripathi Bilirubin [Mass/Vol]0.2 mg/dLNormal0.2-1.0The [facility] CenterComment on above: Performed By: #### BNP, CMP ####[facility] Rtbnkxdcae476[address] [place], [place] [address]Dr. Airam ChangCalcium [Mass/Vol]8.1 mg/dLCritically low8.5-10.1The [facility] CenterComment on above:Performed By: #### BNP, CMP ####[facility] Vhnzvnfiqv[address] [place], [place] [address]Dr. Yilan ChangChloride [Moles/Vol]96 mmol/LCritically glr73-211Vux [facility] CenterComment on above:Performed By: #### BNP, CMP ####[facility] Gdguxrnbnh3347[address] [place], [place] [address]Dr. Yilan ChangCO2 [Moles/Vol]26.6 mmol/TGmdczd40.0-32.0The [facility] CenterComment on above: Performed By: #### BNP, CMP ####[facility] Pjjzfdtkmh54[address] [place], [place] [address]Dr. Yilan ChangCreatinine [Mass/Vol]1.31 mg/dL Critically high0.55-1.02The [facility] CenterComment on above:Performed By: #### BNP, CMP ####[facility] Vpekwvkxva76[address] [place], [place] [address]Dr. Yilan ChangEGFR-AF LHMFKSPA90 mL/min/1.70p0Wlnoqimioj low>=60The [facility] CenterComment on above:Performed By: #### BNP, CMP ####[facility] Oxklovhukt038[address] [place], [place] [address]Dr. Yilan ChangEGFR- NON AF IVXTSAAG77 mL/min/1.94s9Lmudvqkvoh low>=60The [facility] CenterComment on above:Performed By: #### BNP, CMP ####[facility] Eblsgpoadl100[address] [place], [place] [address]Dr. Yilan ChangGlobulin (S) [Mass/Vol]3.0 g/dL NormalThe [facility] CenterComment on above:Performed By: #### BNP, CMP ####[facility] Zrzgauvapd6[address] [place], [place] [address]Dr. Yilan ChangGlucose [Mass/Vol]82 mg/dASwwime30-608Rfj [facility] CenterComment on above:Performed By: #### BNP, CMP ####[facility] Fxnunxazvu8963[address] [place], [place] [address]Dr. Selenalan ChangPotassium [Moles/Vol]4.0 mmol/L Normal3.5-5.1The [facility] CenterComment on above:Performed By: #### BNP, CMP ####[facility] [address]ecufonvjj[address] [place] [address]Dr. Yilan ChangProtein [Mass/Vol]5.8 g/dLCritically low6.4-8.2The [facility] Comment on above:Performed By: #### BNP, CMP ####[facility] Hdehyxvdda[address] [place], [place] [address]Dr. Yilan ChangSodium [Moles/Vol]130 mmol/LCritically veq928-223Qdw [facility] CenterComment on above: Performed By: #### BNP, CMP ####[facility] Iexfntctqo8[address] [place], [place] [address]Dr. Selenalan ChangUrea nitrogen [Mass/Vol]19.0 mg/dL Critically high7.0-18.0The [facility] CenterComment on above:Performed By: #### BNP, CMP ####[facility] Kkwhqhonxz8470[address] [place], [place] [address]Dr. Yilan ChangUrea nitrogen/Creatinine [Mass ratio]14.5 mg/mgNormalThe [facility] CenterComment on above:Performed By: #### BNP, CMP ####[facility] Wctjjzmqzy8815[address] [place], [place] [address]Dr. Airam TripathiBNPon 82-22-3516Oltgpwbnnhr peptide B (Bld) [Mass/Vol]2510.0 pg/mLCritically high <=900.0The [facility] CenterComment on above:Performed By: #### BNP, CMP ####[facility] Uarbaypgla7[address] [place], [place] [address]Dr. Airam TripathiCBC AUTO DIFFon 80-56-6975LSTJ #0.0 103/ulNormal0.0-0.1The [facility] CenterComment on above:Performed By: #### CBC ####[facility] Ifzazdeyeb17[address] [place], [place] [address]Dr.Yilan ChangBasophils/100 WBC (Bld)0.4 %Normal0.2-2.0The [facility] CenterComment on above:Performed By: #### CBC ####[facility] L[address]fxsxlieg[address] [place] [address]Dr.Yilan ChangEO #0.0 103/ulNormal0.0-0.7The [facility] CenterComment on above:Performed By: #### CBC ####[facility] Bjdmhiruxh3637[address] [place], [place] [address]Dr.Yilan ChangEosinophils/100 WBC (Bld)0.3 %Critically low0.9-7.0The [facility] CenterComment on above:Performed By: #### CBC ####[facility] Nyeoxbqqwg0163[address] [place], [place] [address]Dr. Yilan ChangErythrocyte distribution width (RBC) [Ratio]13.6 %Mpqaiv49.0-15.0The [facility] CenterComment on above:Performed By: #### CBC ####[facility] Yfiakhinkl42[address] [place], [place] [address]Dr.Selenalan ChangHematocrit (Bld) [Volume fraction]28.9 %Critically low36.0-48.0The [facility] CenterComment on above:Performed By: #### CBC ####[facility] Alwnqzfwrr[address] [place], [place] [address]Dr.Selenalan ChangHemoglobin (Bld) [Mass/Vol]8.9 g/dL Critically low12.0-16.0The [facility] CenterComment on above:Performed By: #### CBC ####[facility] Nqedboagag9[address] [place], [place] [address]Dr. Yilan ChangIG #0.10 10e3/ulCritically high0.00-0.03The [facility] CenterComment on above:Performed By: #### CBC ####[facility] Bofshgilxm9333[address] [place], [place] [address]Dr.Yilan ChangIG %1.3 %Critically high0.0-0.5The [facility] CenterComment on above:Performed By: #### CBC ####[facility] [address]gdop[address] [place] [address]Dr.Airam TripathiLYMPH #0.7 103/ulCritically low1.2-3.8The [facility] CenterComment on above:Performed By: #### CBC ####[facility] [address]jbbha[address] [place] [address]Dr.Airam TripathiLymphocytes/100 WBC (Bld)8.1 %Critically low20.5-60.0The [facility] CenterComment on above:Performed By: #### CBC ####[facility] Acxqlwdnus[address] [place] [address]Dr.Airam TripathiMANUAL DIFF REQ NONormalThe [facility] CenterComment on above:Performed By: #### CBC ####[facility] L[address]azhlzfo[address] [place] [address]Dr. Airam TripathiMCH (RBC) [Entitic mass]29.4 duWibqmt18.7-34.0The [facility] Comment on above:Performed By: #### CBC ####[facility] Evhflwruje22[address] [place], [place] [address]Dr.Airam TripathiMCHC (RBC) [Mass/Vol]30.8 g/dL Fbvfwk09.9-35.2The [facility] CenterComment on above:Performed By: #### CBC ####[facility] Soytkxqrzl[address] [place] [address]Dr. Airam TripathiMCV (RBC) [Entitic vol]95.4 hZBsycfp50.0-99.0The [facility] Comment on above:Performed By: #### CBC ####[facility] Anmczrzqsu[address] [place] [address]Dr.Airam TripathiMONO #0.3 103/ulNormal0.3-0.8 The [facility] CenterComment on above:Performed By: #### CBC ####[facility] Xdaznbgsom27[address] [place], [place] [address]Dr.Airam Tripathi Monocytes/100 WBC (Bld)3.1 %Normal1.7-12.0The [facility] CenterComment on above: Performed By: #### CBC ####[facility] Xcxicfpawg[address] [place] [address]Dr.Selenaneil DeuceNEUT #7.0 103/ulCritically high1.4-6.5 The [facility] CenterComment on above:Performed By: #### CBC ####[facility] Wicjevgzrx[address] [place] [address]Dr.Airam Tripathi Neutrophils/100 WBC (Bld)86.8 %Critically high43.0-75.0The [facility] Comment on above:Performed By: #### CBC ####[facility] Nfelkvdzqy5414[address] [place], [place] [address]Dr.Airam TripathiPlatelet mean volume (Bld) [Entitic vol]8.3 fLCritically low9.5-13.5The [facility] CenterComment on above: Performed By: #### CBC ####[facility] Cssfrubvlg[address] [place], [place] [address]Dr.Airam UastdZYL094 103/iaIraije112-900Ebj [facility] CenterComment on above:Performed By: #### CBC ####[facility] Crrdvhwcwk14[address] [place], [place] [address]Dr.Airam TripathiRBC3.03 106/ul Critically low4.20-5.40The [facility] CenterComment on above:Performed By: #### CBC ####[facility] Voxeojrqcb1840[address] [place], [place] [address]Dr. Airam ChangWBC8.0 103/ulNormal4.0-11.0The [facility] HospitalComment on above: Performed By: #### CBC ####[facility] Xcagkctgvw6[address] [place], [place] [address]Dr.Airam TripathiPROF 14(COMP METB)on 46-40-6008Wtvlxgy [Mass/Vol]2.8 g/dLCritically low3.4-5.0The [facility] CenterComment on above: Performed By: #### BNP, CMP ####[facility] Yoltxfemuf1370[address] [place], [place] [address]Dr. Airam TripathiAlbumin/Globulin [Mass ratio]0.9 {ratio}NormalThe [facility] CenterComment on above:Performed By: #### BNP, CMP ####[facility] Eldnjfjdio2498[address] [place], [place] [address]Dr. Yilan ChangALP [Catalytic activity/Vol]136 U/LCritically tmyl47-063Vnp [facility] CenterComment on above:Performed By: #### BNP, CMP ####[facility] Xgptpibgst64[address] [place], [place] [address]Dr. Yilan ChangALT [Catalytic activity/Vol]17 U/CSuwkbx61-55Rmd [facility] CenterComment on above:Performed By: #### BNP, CMP ####[facility] Arcwtvqoqv0475[address] [place], [place] [address]Dr. Yilan ChangAnion gap [Moles/Vol]12.9 mmol/LNormalThe [facility] CenterComment on above:Performed By: #### BNP, CMP ####[facility] Xqmpgwuyyl0828[address] [place], [place] [address]Dr. Yilan ChangAST [Catalytic activity/Vol]24 U/AGobqci23-32Emj [facility] CenterComment on above:Performed By: #### BNP, CMP ####[facility] Vnnouaeavf906[address] [place], [place] [address]Dr. Yilan ChangBilirubin [Mass/Vol]0.2 mg/dLNormal0.2-1.0The [facility] CenterComment on above:Performed By: #### BNP, CMP ####[facility] Ffpqmrxmty8423[address] [place], [place] [address]Dr. Yilan ChangCalcium [Mass/Vol]8.7 mg/dLNormal8.5-10.1The [facility] CenterComment on above:Performed By: #### BNP, CMP ####[facility] Kpzsdovdjc14[address] [place], [place] [address]Dr. Yilan ChangChloride [Moles/Vol]102 mmol/LNormal 98-107The [facility] CenterComment on above:Performed By: #### BNP, CMP ####[facility] Eshfygckep8248[address] [place], [place] [address]Dr. Yilan ChangCO2 [Moles/Vol]23.8 mmol/ZUyphar64.0-32.0The [facility] CenterComment on above:Performed By: #### BNP, CMP ####[facility] Xqklmyaxse0837[address] [place], [place] [address]Dr. Yilan ChangCreatinine [Mass/Vol]1.08 mg/dL Critically high0.55-1.02The [facility] CenterComment on above:Performed By: #### BNP, CMP ####[facility] Qhokpnjnvu5235[address] [place], [place] [address]Dr. Yilan ChangEGFR-AF DJIBOUTIAN>60Normal>=60The [facility] CenterComment on above:Performed By: #### BNP, CMP ####[facility] Kdoivccwrt6790[address] [place], [place] [address]Dr. Yilan ChangEGFR-NON AF EJTMOIVD00 mL/min/1.55v8Hatfjnpenp low>=60The [facility] CenterCombaraga [facility] on above:Performed By: #### BNP, CMP ####[facility] Ijgavcouca7368[address] [place], [place] [address]Dr. Yilan ChangGlobulin (S) [Mass/Vol]3.2 g/dLNormalThe [facility] CenterCombaraga [facility] memorial hospital on above:Performed By: #### BNP, CMP ####[facility] Yhzbfggygg1789[address] [place], [place] [address]Dr. Yilan ChangGlucose [Mass/Vol]99 mg/uHLemcfy08-378Fip [facility] CenterComment on above:Performed By: #### BNP, CMP ####[facility] Zvbvbrkfae3350[address] [place], [place] [address]Dr. Yilan ChangPotassium [Moles/Vol]4.7 mmol/LNormal3.5-5.1The [facility] CenterCombaraga [facility] hospital on above:Performed By: #### BNP, CMP ####[facility] Izynwjnmls8085[address] [place], [place] [address]Dr. Selenalan Tirpathi Protein [Mass/Vol]6.0 g/dLCritically low6.4-8.2The [facility] CenterComment on above:Performed By: #### BNP, CMP ####[facility] Glhwixfdcu[address] [place] [address]Dr. Yilan ChangSodium [Moles/Vol]134 mmol/LCritically bfm636-854Eyb [facility] on above:Performed By: #### BNP, CMP ####[facility] Sckfevnufh4[address] [place] [address]Dr. Yilan ChangUrea nitrogen [Mass/Vol]19.0 mg/dLCritically high7.0-18.0The [facility] CenterComment on above:Performed By: #### BNP, CMP ####[facility] Gsvmfamtfb8155[address] [place], [place] [address]Dr. Yilan ChangUrea nitrogen/Creatinine [Mass ratio]17.6 mg/mgNoGood Samaritan HospitalComment on above:Performed By: #### BNP, CMP ####[facility] Ylxqiydqkv7595[address] [place], [place] [address]Dr. Yilan ChangPROTIMEon 65-20-2758YYX Coag (PPP) [Relative time]1.00 {INR}NormalLicking Memorial Hospital on above:Performed By: #### PT ####[facility] Xmbjhrgwqn8199[address] [place], [place] [address]Dr. Yilan ChangINR GUIDELINESSEE BELOWCleveland Clinic Hillcrest HospitalComment on above:Result Comment: DESIRED INR: 2.0 - 3.0 CONDITIONS NOT LISTED BELOW 2.5 - 3.5 FOR PROSTHETIC HEART VALVE REPLACEMENT 2.5 - 3.5 RECURRENT THROMBOSIS Performed By: #### PT ####[facility] Gzdlhoxqly86[address] [place], [place] [address]Dr. Yilan ChangPT Coag (PPP) [Time]10.8 sNormal 9.0-11.6The [facility] CenterComment on above:Performed By: #### PT ####[facility] Hzvusglfat1885[address] [place], [place] [address]Dr. Yilan ChangPTT on 33-82-8699xYMJ Coag (Bld) [Time]27.2 zMljbvv03.3-36.2The [facility] Comment on above:Performed By: #### PTT ####[facility] R[address]bdymeyt[address] [place] [address]Dr.Airam ChangBNPon 55-29-0524Zfpvdqwlznz peptide B (Bld) [Mass/Vol]2293.0 pg/mLCritically high<=900.0The [facility] CenterComment on above:Performed By: #### CMP, BNP ####[facility] Mphbhimnjp28[address] [place], [place] [address]Dr. Airam ChangCBC AUTO DIFF on 11-59-2141CGCL #0.0 103/ulNormal0.0-0.1The [facility] CenterComment on above: Performed By: #### CBC ####[facility] Uumbtbcnav[address] [place], [place] [address]Dr.Airam ChangBasophils/100 WBC (Bld)0.4 %Normal 0.2-2.0The [facility] CenterComment on above:Performed By: #### CBC ####[facility] Hwatbpuksm4558[address] [place], [place] [address]Dr.Selenalan ChangEO # 0.2 103/ulNormal0.0-0.7The [facility] CenterComment on above:Performed By: #### CBC ####[facility] Wgpxztujks9967[address] [place], [place] [address]Dr. Airam ChangEosinophils/100 WBC (Bld)3.0 %Normal0.9-7.0The [facility] Comment on above:Performed By: #### CBC ####[facility] Ddtfytomuz9[address] [place], [place] [address]Dr.Airam ChangErythrocyte distribution width (RBC) [Ratio]13.3 %Btayji69.0-15.0The [facility] CenterComment on above: Performed By: #### CBC ####[facility] Grmwrtbbyb[address] [place], [place] [address]Dr.Airam ChangHematocrit (Bld) [Volume fraction]26.2 % Critically low36.0-48.0The [facility] CenterComment on above:Performed By: #### CBC ####[facility] [address]evsdcda[address] [place] [address]Dr. Airam TripathiHemoglobin (Bld) [Mass/Vol]8.3 g/dLCritically low12.0-16.0The [facility] CenterComment on above:Performed By: #### CBC ####[facility] Quqganmfjr60[address] [place], [place] [address]Dr.Selenalan ChangIG #0.08 10e3/ulCritically high0.00-0.03The [facility] HospitalComment on above:Performed By: #### CBC ####[facility] Kzknnmmvdy42[address] [place], [place] [address]Dr.Airam ChangIG %1.1 %Critically high0.0-0.5The [facility] CenterComment on above:Performed By: #### CBC ####[facility] Nigitwhjcn0870[address] [place], [place] [address]Dr.Airam ChangLYMPH #1.2 103/ulNormal1.2-3.8The [facility] CenterComment on above:Performed By: #### CBC ####[facility] Tkutnbmgbn5017[address] [place], [place] [address]Dr.Airam TripathiLymphocytes/100 WBC (Bld)17.3 %Critically low20.5-60.0The [facility] CenterComment on above: Performed By: #### CBC ####[facility] Npbtuwdozx[address] [place], [place] [address]Dr.Airam TripathiMANUAL DIFF REQNONormalThe [facility] CenterComment on above:Performed By: #### CBC ####[facility] Pogtpttvxg18[address] [place], [place] [address]Dr.Airam TripathiMCH (RBC) [Entitic mass]30.3 cgWtnuxj66.7-34.0The [facility] CenterComment on above: Performed By: #### CBC ####[facility] Fmppudxspp20[address] [place], [place] [address]Dr.Airam TripathiMCHC (RBC) [Mass/Vol]31.7 g/dLNormal 29.9-35.2The [facility] HospitalComment on above:Performed By: #### CBC ####[facility] Z[address]wwjmulv4[address] [place] [address]Dr. Airam TripathiMCV (RBC) [Entitic vol]95.6 rLXwhtab39.0-99.0The [facility] Comment on above:Performed By: #### CBC ####[facility] Kbdngsibfa2784[address] [place], [place] [address]Dr.Airam TripathiMONO #0.5 103/ulNormal0.3-0.8 The [facility] CenterComment on above:Performed By: #### CBC ####[facility] Dxbqcefpqd1364[address] [place], [place] [address]Dr.Airam Tripathi Monocytes/100 WBC (Bld)7.1 %Normal1.7-12.0The [facility] CenterComment on above: Performed By: #### CBC ####[facility] Timrpoqgjr95[address] [place], [place] [address]Dr.Airam TripathiNEUT #5.0 103/ulNormal1.4-6.5The [facility] CenterComment on above:Performed By: #### CBC ####[facility] Ttxwsdcior35[address] [place], [place] [address]Dr.Airam TripathiNeutrophils/100 WBC (Bld)71.1 %Vxztsa01.0-75.0The [facility] CenterComment on above:Performed By: #### CBC ####[facility] Lahwnieayu20[address] [place], [place] [address]Dr.Airam TripathiPlatelet mean volume (Bld) [Entitic vol]8.2 fLCritically low 9.5-13.5The [facility] CenterComment on above:Performed By: #### CBC ####[facility] Reunmjkrbn[address] [place], [place] [address]Dr. Selenalan BbxjxVSA197 103/nzFegzmn208-049Xdb [facility] CenterComment on above: Performed By: #### CBC ####[facility] Aswhffxcvs85[address] [place], [place] [address]Dr.Selenaneil TripathiRBC2.74 106/ulCritically low4.20-5.40The [facility] CenterComment on above:Performed By: #### CBC ####[facility] [address]wdybyv[address] [place] [address]Dr.Yilan ChangWBC7.1 103/ul Normal4.0-11.0The [facility] CenterComment on above:Performed By: #### CBC ####[facility] Qxiobsrxue[address] [place] [address]Dr. Selenalan ChangCTA CHEST WO W CONon 81-29-2383PJK CHEST WO W CONNormalThe [facility] CenterPROF 14(COMP METB)on 24-71-2172Xkjngfx [Mass/Vol]2.6 g/dLCritically low 3.4-5.0The [facility] CenterComment on above:Performed By: #### CMP, BNP ####[facility] Omusqiitvl4[address] [place], [place] [address]Dr. Airam ChangAlbumin/Globulin [Mass ratio]0.8 {ratio}NormalThe [facility] Comment on above:Performed By: #### CMP, BNP ####[facility] [facility] Ayrhblmygz[address] [place], [place] [address]Dr. Selenalan ChangALP [Catalytic activity/Vol]130 U/LCritically gutt39-758Psi [facility] CenterComment on above: Performed By: #### CMP, BNP ####[facility] Dyfavfitgf[address] [place], [place] [address]Dr. Airam ChangALT [Catalytic activity/Vol]12 U/L Critically tvu72-43Dhm [facility] CenterComment on above:Performed By: #### CMP, BNP ####[facility] Uvoodarrvk69[address] [place], [place] [address]Dr. Airam TripathiAnion gap [Moles/Vol]11.8 mmol/LNormalThe [facility] CenterComment on above:Performed By: #### CMP, BNP ####[facility] Mliimpkbcb9307[address] [place], [place] [address]Dr. Yilan ChangAST [Catalytic activity/Vol]22 U/L Xeprmy83-03Dbb [facility] CenterComment on above:Performed By: #### CMP, BNP ####[facility] Ydi[address]iotipz[address] [place] [address]Dr. Yilan ChangBilirubin [Mass/Vol]0.2 mg/dLNormal0.2-1.0The [facility] Comment on above:Performed By: #### CMP, BNP ####[facility] Mqifhdddgj[address] [place], [place] [address]Dr. Yilan ChangCalcium [Mass/Vol]8.0 mg/dLCritically low8.5-10.1The [facility] CenterComment on above: Performed By: #### CMP, BNP ####[facility] Vskvnpjfft[address] [place], [place] [address]Dr. Yilan ChangChloride [Moles/Vol]104 mmol/LNormal 98-107The [facility] CenterComment on above:Performed By: #### CMP, BNP ####[facility] Zfkskogmor[address] [place], [place] [address]Dr. Yilan ChangCO2 [Moles/Vol]22.8 mmol/IEtuzsq10.0-32.0The [facility] CenterComment on above:Performed By: #### CMP, BNP ####[facility] Gvsawfpznc[address] [place], [place] [address]Dr. Yilan ChangCreatinine [Mass/Vol]1.07 mg/dL Critically high0.55-1.02The [facility] CenterComment on above:Performed By: #### CMP, BNP ####[facility] Qcslygqbex[address] [place], [place] [address]Dr. Yilan ChangEGFR-AF DJIBOUTIAN>60Normal>=60The [facility] CenterComment on above:Performed By: #### CMP, BNP ####[facility] Itxwewcsed8340[address] [place], [place] [address]Dr. Yilan ChangEGFR-NON AF CHCTFYUO54 mL/min/1.55l9Ozfdaxegse low>=60The [facility] CenterCom[facility] on above:Performed By: #### CMP, BNP ####[facility] Enfkxfldrz9[address] [place], [place] [address]Dr. Yilan ChangGlobulin (S) [Mass/Vol]3.1 g/dLNormalThe [facility] HospitalComment on above:Performed By: #### CMP, BNP ####[facility] Aerlnwgemi[address] [place], [place] [address]Dr. Yilan ChangGlucose [Mass/Vol]85 mg/dKJwmpue50-469Uju [facility] CenterComment on above:Performed By: #### CMP, BNP ####[facility] Xjlndrcprp2338[address] [place], [place] [address]Dr. Yineil ChangPotassium [Moles/Vol]4.6 mmol/LNormal3.5-5.1The [facility] HospitalComment on above:Performed By: #### CMP, BNP ####[facility] Rlpirtjfes1714[address] [place], [place] [address]Dr. Yilan Tripathi Protein [Mass/Vol]5.7 g/dLCritically low6.4-8.2The [facility] CenterComment on above:Performed By: #### CMP, BNP ####[facility] Auciqgopze2683[address] [place], [place] [address]Dr. Yilan ChangSodium [Moles/Vol]134 mmol/LCritically mfw933-179Mbd [facility] CenterComment on above:Performed By: #### CMP, BNP ####[facility] Pkijwkiydw0678[address] [place], [place] [address]Dr. Yilan ChangUrea nitrogen [Mass/Vol]24.0 mg/dLCritically high7.0-18.0The [facility] CenterComment on above:Performed By: #### CMP, BNP ####[facility] Wcfcdfxsmq5165[address] [place], [place] [address]Dr. Yilan ChangUrea nitrogen/Creatinine [Mass ratio]22.4 mg/mgNormalThe [facility] CenterComment on above:Performed By: #### CMP, BNP ####[facility] Pyiqgeqflv6284[address] [place], [place] [address]Dr. Selenalan ChangBNPon 60-44-5317Wkvktpwefym peptide B (Bld) [Mass/Vol]934.0 pg/mLCritically high<=900.0The [facility] CenterComment on above:Performed By: #### CMP, BNP ####[facility] Gfqadobnww450[address] [place], [place] [address]Dr. Airam TripathiCBC AUTO DIFFon 77-94-4933VSTU # 0.0 103/ulNormal0.0-0.1[facility] Hospitalment on above:Performed By: #### CBC ####[facility] Qqsxakpdww4698[address] [place], [place] [address]Dr. Airam ChangBasophils/100 WBC (Bld)0.2 %Normal0.2-2.0The [facility] CenterComment on above:Performed By: #### CBC ####[facility] Vzkmziymbj8043[address] [place], [place] [address]Dr.Selenalan ChangEO #0.1 103/ulNormal0.0-0.7The [facility] CenterComment on above:Performed By: #### CBC ####[facility] Ycxbucosno25[address] [place], [place] [address]Dr.Airam ChangEosinophils/100 WBC (Bld)2.1 %Normal0.9-7.0The [facility] CenterComment on above:Performed By: #### CBC ####[facility] Cpfpbdsvan0060[address] [place], [place] [address]Dr.Airam ChangErythrocyte distribution width (RBC) [Ratio]12.9 %Normal 11.0-15.0The [facility] on above:Performed By: #### CBC ####[facility] Aixuzctehk[address] [place], [place] [address]Dr. Airam ChangHematocrit (Bld) [Volume fraction]24.9 %Critically low36.0-48.0The [facility] CenterComment on above:Performed By: #### CBC ####[facility] Fzlyvnpnyl9978[address] [place], [place] [address]Dr.Airam ChangHemoglobin (Bld) [Mass/Vol]7.9 g/dLCritically low12.0-16.0The [facility] CenterComment on above:Performed By: #### CBC ####[facility] Dvdapnrgud974[address] [place], [place] [address]Dr.Airam ChangIG #0.05 10e3/ulCritically high0.00-0.03 The [facility] CenterComment on above:Performed By: #### CBC ####[facility] Aguqbvbvmr2535[address] [place], [place] [address]Dr.Airam DeuceIG % 0.8 %Critically high0.0-0.5The [facility] CenterComment on above:Performed By: #### CBC ####[facility] Utifanwcws3176[address] [place], [place] [address]Dr.Airam DeuceLYMPH #0.9 103/ulCritically low1.2-3.8The [facility] Comment on above:Performed By: #### CBC ####[facility] Qrmqcintww6190[address] [place], [place] [address]Dr.Airam TripathiLymphocytes/100 WBC (Bld)13.7 %Critically low20.5-60.0The [facility] CenterComment on above:Performed By: #### CBC ####[facility] Afhxiuyyug6223[address] [place], [place] [address]Dr.Airam TripathiMANUAL DIFF REQNONormalThe [facility] CenterComment on above: Performed By: #### CBC ####[facility] Slchuxekjz7014[address] [place], [place] [address]Dr.Airam TripathiST. [facility] (RBC) [Entitic mass]30.2 pgNormal 26.7-34.0[facility] HospitalComment on above:Performed By: #### CBC ####[facility] Xyuydcfhgk519[address] [place], [place] [address]Dr. Airam TripathiHC (RBC) [Mass/Vol]31.7 g/aZBpjfrr28.9-35.2[facility] Comment on above:Performed By: #### CBC ####[facility] Ahzbhxcbic9015[address] [place], [place] [address]Dr.Airam TripathiV (RBC) [Entitic vol]95.0 fL Wdrmnp65.0-99.0The [facility] CenterComment on above:Performed By: #### CBC ####[facility] Vwuvxbavtv6725[address] [place], [place] [address]Dr. Yilan ChangMONO #0.4 103/ulNormal0.3-0.8The [facility] HospitalComment on above: Performed By: #### CBC ####[facility] [address]kfqv[address] [place] [address]Dr.Selenalan ChangMonocytes/100 WBC (Bld)6.7 %Normal 1.7-12.0The [facility] CenterComment on above:Performed By: #### CBC ####[facility] Xsergdpprr934[address] [place], [place] [address]Dr. Selenalan ChangNEUT #5.0 103/ulNormal1.4-6.5The [facility] HospitalComment on above: Performed By: #### CBC ####[facility] Pvvimbppcs6986[address] [place], [place] [address]Dr.Selenalan ChangNeutrophils/100 WBC (Bld)76.5 % Critically high43.0-75.0The [facility] CenterComment on above:Performed By: #### CBC ####[facility] Hooovjyvpo5225[address] [place], [place] [address]Dr. Airam ChangPlatelet mean volume (Bld) [Entitic vol]8.4 fLCritically low9.5-13.5 The [facility] CenterComment on above:Performed By: #### CBC ####[facility] Iifacxjete3739[address] [place], [place] [address]Dr.Airam MnupvHVG644 103/tnRwaqrp452-897Mkg [facility] CenterComment on above:Performed By: #### CBC ####[facility] Kiqrnhljob867[address] [place], [place] [address]Dr. Airam ChangRBC2.62 106/ulCritically low4.20-5.40The [facility] CenterComment on above:Performed By: #### CBC ####[facility] Hupsdloquy3238[address] [place], [place] [address]Dr.Selenalan ChangWBC6.6 103/ulNormal4.0-11.0The [facility] CenterComment on above:Performed By: #### CBC ####[facility] Acttwewjoe0826[address] [place], [place] [address]Dr.Airam TripathiOSMOLALITYon 81-33-9622Cedmocrfma [Osmolality]269 mosm/kgCritically fxe871-466Xhq [facility] CenterComment on above:Performed By: #### OSMO ####[facility] [address]vjfeaoh[address] [place] [address]Dr. Airam DeucePROF 14(COMP METB)on 87-68-4769Ikkpsps [Mass/Vol]2.5 g/dLCritically low3.4-5.0The [facility] HospitalComment on above:Performed By: #### CMP, BNP ####[facility] Uytcwgdkiu[address] [place] [address]Dr. Airam Tripathi Albumin/Globulin [Mass ratio]0.9 {ratio}NormalThe [facility] CenterComment on above:Performed By: #### CMP, BNP ####[facility] Boggeygvkq1928[address] [place], [place] [address]Dr. Airam TripathiALP [Catalytic activity/Vol]128 U/L Critically yjua46-988Nsy [facility] CenterComment on above:Performed By: #### CMP, BNP ####[facility] Tvhqanwxlr485[address] [place], [place] [address]Dr. Airam TripathiALT [Catalytic activity/Vol]14 U/SLgnmvk98-69Xkw [facility] CenterComment on above:Performed By: #### CMP, BNP ####[facility] Dfdqvkoyjn5533[address] [place], [place] [address]Dr. Airam TripathiAnion gap [Moles/Vol]10.4 mmol/LNormalThe [facility] HospitalComment on above:Performed By: #### CMP, BNP ####[facility] Grgfqmakjc9360[address] [place], [place] [address]Dr. Airam ChangAST [Catalytic activity/Vol]23 U/CZyaxoe02-61Fyx [facility] CenterComment on above:Performed By: #### CMP, BNP ####[facility] Popxxdpcqn9380[address] [place], [place] [address]Dr. Airam Tripathi Bilirubin [Mass/Vol]0.2 mg/dLNormal0.2-1.0The [facility] CenterComment on above: Performed By: #### CMP, BNP ####[facility] Gubgovvthb94[address] [place], [place] [address]Dr. Yilan ChangCalcium [Mass/Vol]7.4 mg/dLCritically low8.5-10.1The [facility] CenterComment on above:Performed By: #### CMP, BNP ####[facility] Ipseohltqd4212[address] [place], [place] [address]Dr. Yilan ChangChloride [Moles/Vol]99 mmol/SXljjhx43-387Dez [facility] CenterComment on above:Performed By: #### CMP, BNP ####[facility] Lkhpvfxdqy4456[address] [place], [place] [address]Dr. Yilan ChangCO2 [Moles/Vol]24.1 mmol/LNormal 21.0-32.0The [facility] HospitalComment on above:Performed By: #### CMP, BNP ####[facility] Bmjlhirmpe5866[address] [place], [place] [address]Dr. Yilan ChangCreatinine [Mass/Vol]1.45 mg/dLCritically high0.55-1.02The [facility] CenterComment on above:Performed By: #### CMP, BNP ####[facility] Bggbmnzcec9360[address] [place], [place] [address]Dr. Yilan ChangEGFR-AF LYLHRTPJ81 mL/min/1.89n3Hwofutrfsh low>=60The [facility] CenterComment on above: Performed By: #### CMP, BNP ####[facility] Ceurilaanr7030[address] [place], [place] [address]Dr. Yilan ChangEGFR-NON AF BNMZWJGH54 mL/min/1.73m2 Critically low>=60The [facility] CenterComment on above:Performed By: #### CMP, BNP ####[facility] Biangxpjmd4534[address] [place], [place] [address]Dr. Yilan ChangGlobulin (S) [Mass/Vol]2.8 g/dLNormalThe [facility] CenterComment on above:Performed By: #### CMP, BNP ####[facility] Nqsgzhipdr1303[address] [place], [place] [address]Dr. Yilan ChangGlucose [Mass/Vol]82 mg/dLNormal 74-106The [facility] CenterComment on above:Performed By: #### CMP, BNP ####[facility] H[address]wfquhhv[address] [place] [address]Dr. Yilan ChangPotassium [Moles/Vol]4.5 mmol/LNormal3.5-5.1The [facility] Comment on above:Performed By: #### CMP, BNP ####[facility] Avhpgmzkzk[address] [place], [place] [address]Dr. Yilan ChangProtein [Mass/Vol]5.3 g/dLCritically low6.4-8.2The [facility] CenterComment on above: Performed By: #### CMP, BNP ####[facility] Istfwenuft6168[address] [place], [place] [address]Dr. Yilan ChangSodium [Moles/Vol]129 mmol/LCritically hid860-082Srt [facility] CenterComment on above:Performed By: #### CMP, BNP ####[facility] Bqrecdiugy8239[address] [place], [place] [address]Dr. Yilan ChangUrea nitrogen [Mass/Vol]35.0 mg/dLCritically high7.0-18.0The [facility] CenterComment on above:Performed By: #### CMP, BNP ####[facility] Igzmwgezyv2780[address] [place], [place] [address]Dr. Yilan ChangUrea nitrogen/Creatinine [Mass ratio]24.1 mg/mgNormalThe [facility] CenterComment on above:Performed By: #### CMP, BNP ####[facility] Mjwtcpfcyk1733[address] [place], [place] [address]Dr. Yilan ChangT3, TOTAL (TRIIODOTHYRONINE)on 97-73-4605F3, VOVAD149 ng/rNDxvyvr82-488Fyn [facility] CenterComment on above: Performed By: #### J7QKOUW ####[facility] Jptriennzs[address]70[address] [place], [place] [address]Dr. Yilan ChangBNPon 87-94-0182Bcvlbklpxwt peptide B (Bld) [Mass/Vol]1024.0 pg/mLCritically high<=900.0The [facility] CenterComment on above:Performed By: #### BNP, CMP ####[facility] Mijyetzrqt9169[address] [place], [place] [address]Dr. Selenaneil DeuceCARDIAC CONSUELO 3-6on 39-54-0814CK [Catalytic activity/Vol]116 U/QJmdosj20-113Cot [facility] CenterComment on above:Performed By: #### CMREP ####[facility] Nmokmudklp6097[address] [place], [place] [address]Dr. Airam TripathiCK.MB [Mass/Vol]ng/mLNormal<=3.60The [facility] Hospitalment on above:Performed By: #### CMREP ####[facility] Sjigpxvfzy5356[address] [place], [place] [address]Dr. Selenaneil TripathiHSTROP6.0 pg/mLNormal4.0-51.3The [facility] CenterComment on above:Result Comment: CUT-OFF POINTS HAVE BEEN ESTABLISHED BASED ON THE FOURTH UNIVERSAL DEFINITIONS OF MY OCARDIALINFARCTION. THE UPPER REFERENCE LIMIT (URL) OF TROPONIN, DEFINED THE 99TH PERCENTILE OFcTnI DISTRIBUTION IN A REFERENCE POPULATION, HAS BEEN CONFIRMED THE DECISION THRESHOLDFOR PA DIAGNOSIS.Performed By: #### CMREP ####[facility] Jwyeczuagg3147[address] [place], [place] [address]Dr. Airam TripathiCBC AUTO DIFFon 33-73-5167MRGA #0.0 103/ulNormal0.0-0.1The [facility] CenterComment on above:Performed By: #### CBC ####[facility] Nettlewept[address] [place], [place] [address]Dr.Airam DeuceBasophils/100 WBC (Bld)0.3 %Normal0.2-2.0The [facility] CenterCombar[facility] on above:Performed By: #### CBC ####[facility] Edtnhslkdm9050[address] [place], [place] [address]Dr.Airam ChangEO #0.2 103/ulNormal0.0-0.7The [facility] CenterCombaraga [facility] hospital on above:Performed By: #### CBC ####[facility] U[address]bmjsbt[address] [place] [address]Dr.Airam ChangEosinophils/100 WBC (Bld)2.0 %Normal 0.9-7.0The [facility] CenterComment on above:Performed By: #### CBC ####[facility] Gtwmfibzpr5148[address] [place], [place] [address]Dr.Airam Tripathi Erythrocyte distribution width (RBC) [Ratio]12.8 %Kwjxvy62.0-15.0The [facility] CenterComment on above:Performed By: #### CBC ####[facility] Arzykuteme1576[address] [place], [place] [address]Dr.Airam ChangHematocrit (Bld) [Volume fraction]27.4 %Critically low36.0-48.0The [facility] CenterComment on above:Performed By: #### CBC ####[facility] Ruffpqvuqo0165[address] [place], [place] [address]Dr.Airam ChangHemoglobin (Bld) [Mass/Vol]8.7 g/dL Critically low12.0-16.0The [facility] CenterComment on above:Performed By: #### CBC ####[facility] Rmnkkltjyw2186[address] [place], [place] [address]Dr. Airam ChangIG #0.11 10e3/ulCritically high0.00-0.03The [facility] CenterComment on above:Performed By: #### CBC ####[facility] Lcrpvzkjxd6439[address] [place], [place] [address]Dr.Airam ChangIG %1.1 %Critically high0.0-0.5The [facility] CenterComment on above:Performed By: #### CBC ####[facility] Ormhqkhfco9[address] [place], [place] [address]Dr.Airam ChangLYMPH #0.9 103/ulCritically low1.2-3.8The [facility] CenterComment on above:Performed By: #### CBC ####[facility] Pyqrxdyzmz040[address] [place], [place] [address]Dr.Airam ChangLymphocytes/100 WBC (Bld)9.7 %Critically low20.5-60.0The [facility] CenterComment on above:Performed By: #### CBC ####[facility] [address]uxsqmwyyf[address] [place] [address]Dr.Airam TripathiMANUAL DIFF REQ NONormalThe [facility] CenterComment on above:Performed By: #### CBC ####[facility] Kjynsddsbn64[address] [place] [address]Dr. Airam TripathiH (RBC) [Entitic mass]30.0 nbNhdpio72.7-34.0The [facility] Comment on above:Performed By: #### CBC ####[facility] Cvytaaruvr0427[address] [place], [place] [address]Dr.Selenaneil TripathiHC (RBC) [Mass/Vol]31.8 g/dL Sgegrq60.9-35.2The [facility] CenterComment on above:Performed By: #### CBC ####[facility] Sislkswsbl0255[address] [place], [place] [address]Dr. Airam TripathiV (RBC) [Entitic vol]94.5 tXIlprti64.0-99.0The [facility] Comment on above:Performed By: #### CBC ####[facility] Pokmtgmlrm3233[address] [place], [place] [address]Dr.Selenaneil TripathiMONO #0.6 103/ulNormal0.3-0.8 [facility] HospitalComment on above:Performed By: #### CBC ####[facility] Hkogoumser1359[address] [place], [place] [address]Dr.Airam Tripathi Monocytes/100 WBC (Bld)5.7 %Normal1.7-12.0The [facility] CenterComment on above: Performed By: #### CBC ####[facility] Gfmumzsdut[address] [place], [place] [address]DrBroderick TripathiNEUT #7.8 103/ulCritically high1.4-6.5 [facility] HospitalComment on above:Performed By: #### CBC ####[facility] Qzvrxnqoin3611[address] [place], [place] [address]Dr.Airam Tripathi Neutrophils/100 WBC (Bld)81.2 %Critically high43.0-75.0The [facility] Comment on above:Performed By: #### CBC ####[facility] Yrfzxuxagb5757[address] [place], [place] [address]Dr.Airam TripathiPlatelet mean volume (Bld) [Entitic vol]8.6 fLCritically low9.5-13.5The [facility] CenterComment on above: Performed By: #### CBC ####[facility] Yvcypvjzjf[address] [place], [place] [address]Dr.Airam SmdcuPWQ364 103/mxKtpimv649-955Wna [facility] CenterComment on above:Performed By: #### CBC ####[facility] Amgupjodyy1638[address] [place], [place] [address]Dr.Selenaneil ChangRBC2.90 106/ul Critically low4.20-5.40The [facility] CenterComment on above:Performed By: #### CBC ####[facility] Gohjoyshfb6306[address] [place], [place] [address]Dr. Selenaneil ChangWBC9.6 103/ulNormal4.0-11.0The [facility] CenterComment on above: Performed By: #### CBC ####[facility] Lubttygnbt3280[address] [place], [place] [address]Dr.Sleenaneil DeuceOSMOLALITYon 77-11-7653Eeifgnmntx [Osmolality]273 mosm/kgCritically pxy442-730Umi [facility] CenterComment on above:Performed By: #### OSMO ####[facility] Hhmpiqpwyu0380[address] [place], [place] [address]Dr. Selenaneil ChangPROF 14(COMP METB)on 43-69-7327Zuplynv [Mass/Vol]3.2 g/dLCritically low3.4-5.0The [facility] CenterComment on above: Performed By: #### BNP, CMP ####[facility] Mvertypymx1970[address] [place], [place] [address]Dr. Airam TripathiAlbumin/Globulin [Mass ratio]1.0 {ratio}NormalThe [facility] CenterComment on above:Performed By: #### BNP, CMP ####[facility] [address]cfpafs[address] [place] [address]Dr. Yilan ChangALP [Catalytic activity/Vol]154 U/LCritically xrya19-291Iqq [facility] CenterComment on above:Performed By: #### BNP, CMP ####[facility] Njsprlkbax64[address] [place] [address]Dr. Yilan ChangALT [Catalytic activity/Vol]17 U/RMzwxpt15-50Aly [facility] CenterComment on above:Performed By: #### BNP, CMP ####[facility] Qbzheyjhvk4000[address] [place], [place] [address]Dr. Yilan ChangAnion gap [Moles/Vol]12.0 mmol/LNormalThe [facility] CenterComment on above:Performed By: #### BNP, CMP ####[facility] Qnbozafkzv4713[address] [place], [place] [address]Dr. Yilan ChangAST [Catalytic activity/Vol]25 U/MWkkbum07-49Kgm [facility] CenterComment on above:Performed By: #### BNP, CMP ####[facility] Fswgluvlkt8[address] [place], [place] [address]Dr. Yilan ChangBilirubin [Mass/Vol]0.3 mg/dLNormal0.2-1.0The [facility] CenterCombaraga [facility] on above:Performed By: #### BNP, CMP ####[facility] Cnkljtwabw0201[address] [place], [place] [address]Dr. Yilan ChangCalcium [Mass/Vol]7.6 mg/dLCritically low8.5-10.1The [facility] CenterComment on above: Performed By: #### BNP, CMP ####[facility] [address]cksptcyu[address] [place] [address]Dr. Yilan ChangChloride [Moles/Vol]92 mmol/LCritically wkw97-989Pak [facility] CenterComment on above:Performed By: #### BNP, CMP ####[facility] Tcofvikslw[address] [place], [place] [address]Dr. Yilan ChangCO2 [Moles/Vol]25.2 mmol/GJcgxgf37.0-32.0The [facility] CenterComment on above:Performed By: #### BNP, CMP ####[facility] Srhielfygj5[address] [place], [place] [address]Dr. Yilan ChangCreatinine [Mass/Vol]1.83 mg/dL Critically high0.55-1.02The [facility] CenterComment on above:Performed By: #### BNP, CMP ####[facility] Gcoypzsjxy[address] [place], [place] [address]Dr. Yilan ChangEGFR-AF DRWMOFUF26 mL/min/1.56i0Efwfwzgrfm low>=60The [facility] CenterComment on above:Performed By: #### BNP, CMP ####[facility] Fwgxxhtyyb[address] [place], [place] [address]Dr. Yilan ChangEGFR- NON AF ODBPFRNB46 mL/min/1.87u7Qwvqlrgaxg low>=60The [facility] CenterComment on above:Performed By: #### BNP, CMP ####[facility] Vjjcycrfqm[address] [place], [place] [address]Dr. Yilan ChangGlobulin (S) [Mass/Vol]3.1 g/dL NormalThe [facility] CenterComment on above:Performed By: #### BNP, CMP ####[facility] Ouhlicxepf[address] [place], [place] [address]Dr. Yilan ChangGlucose [Mass/Vol]77 mg/oSRnlaaa55-590Kcy [facility] CenterComment on above:Performed By: #### BNP, CMP ####[facility] Nqehmyezov34[address] [place], [place] [address]Dr. Yilan ChangPotassium [Moles/Vol]4.2 mmol/L Normal3.5-5.1The [facility] CenterComment on above:Performed By: #### BNP, CMP ####[facility] Pjykclfeyl[address] [place], [place] [address]Dr. Yilan ChangProtein [Mass/Vol]6.3 g/dLCritically low6.4-8.2The [facility] Comment on above:Performed By: #### BNP, CMP ####[facility] Vqqtwcpkyb034[address] [place], [place] [address]Dr. Yilan ChangSodium [Moles/Vol]125 mmol/LCritically fru683-881Zdj [facility]ger HospitalComment on above: Performed By: #### BNP, CMP ####[facility] Cgvxknryxy[address] [place], [place] [address]Dr. Selenalan ChangUrea nitrogen [Mass/Vol]35.0 mg/dL Critically high7.0-18.0The [facility] CenterComment on above:Performed By: #### BNP, CMP ####[facility] Hinawrbrgl[address] [place], [place] [address]Dr. Selenalan ChangUrea nitrogen/Creatinine [Mass ratio]19.1 mg/mgNormalThe [facility] CenterComment on above:Performed By: #### BNP, CMP ####[facility] Jrwycjvhvo4858[address] [place], [place] [address]Dr. Selenalan ChangUA RANDOM W/MICROSCOPICon 45-25-5616XNOTWNCSMXJHQIofznredZHRE SEENParkview Health Bryan HospitalComment on above:Performed By: #### UAMIC ####[facility] Twndtqmmgw[address] [place], [place] [address]Dr. Airam ChangBilirubin Ql (U)NegativeNormalNEGATIVEThe [facility] CenterComment on above:Performed By: #### UAMIC ####[facility] Phsgiumspy8[address] [place], [place] [address]Dr. Selenalan ChangCASTNONE SEENNormalNONE SEENParkview Health Bryan HospitalComment on above:Performed By: #### UAMIC ####[facility] Torpznqlok4[address] [place], [place] [address]Dr. Airam ChangClarity (U)CLEARNormalCLEARThe [facility] CenterComment on above:Performed By: #### UAMIC ####[facility] Tstqoatjan[address] [place], [place] [address]Dr. Airam ChangColor (U)LT. YELLOWNormalYELLOWParkview Health Bryan HospitalComment on above:Performed By: #### UAMIC ####[facility] Rjjnosbfjd2887[address] [place], [place] [address]Dr. Airam ChangCrystals LM Nom (Urine sed)NONE SEENNormalNONE SEENThe [facility] HospitalComment on above:Performed By: #### UAMIC ####[facility] [address] [place] [address]Dr. Yilan ChangEpithelial cells LM Ql (Urine sed)FEWAbnormalNONE SEEN /RAREThe [facility] CenterComment on above:Performed By: #### UAMIC ####[facility] Barttejpmk[address] [place] [address]Dr. Yilan ChangGlucose Ql (U)NegativeNormalNEGATIVEBellevue Hospital HospitalComment on above:Performed By: #### UAMIC ####[facility] Mfghqhhozm68[address] [place], [place] [address]Dr. Yilan ChangHemoglobin Ql (U)NegativeNormalNEGATIVEParkview Health Bryan HospitalComment on above:Performed By: #### UAMIC ####[facility] Idikmfujwd009[address] [place], [place] [address]Dr. Yilan ChangKetones Ql (U)NegativeNormalNEGATIVEThe [facility] Comment on above:Performed By: #### UAMIC ####[facility] Zivijqgowo[address] [place], [place] [address]Dr. Yilan ChangLEUKOCYTESMODERATEAbnormal NEGATIVEParkview Health Bryan HospitalComment on above:Performed By: #### UAMIC ####[facility] Dbtnfrbtie1609[address] [place], [place] [address]Dr. Yilan ChangMUCOUSNONE SEENNormalNONE SEENThe [facility] CenterComment on above: Performed By: #### UAMIC ####[facility] Gdxchdabsc7586[address] [place], [place] [address]Dr. Yilan ChangNitrite Ql (U)NegativeNormalNEGATIVEParkview Health Bryan HospitalComment on above:Performed By: #### UAMIC ####[facility] Hiskddvqlz7253[address] [place], [place] [address]Dr. Yilan ChangpH (U)5.5 [pH] Normal5-9Parkview Health Bryan HospitalComment on above:Performed By: #### UAMIC ####[facility] Gfxzpvnrrg9036[address] [place], [place] [address]Dr. Yilan IzqyzXQB9-9Jvwyii3-9Kjy [facility] CenterComment on above:Performed By: #### UAMIC ####[facility] Zpllndeedt014[address] [place], [place] [address]Dr. Selenaneil DeuceSPEC GRAVITY1.530Gpnzum3.005-<=1.025The [facility] Comment on above:Performed By: #### UAMIC ####[facility] Ljenxdqcab7847[address] [place], [place] [address]Dr. Airam TripathiUA PROTEINNegativeNormal NEGATIVE/ TRACEThe [facility] CenterComment on above:Performed By: #### UAMIC ####[facility] Teapumcpep8827[address] [place], [place] [address]Dr. Airam TripathiUrobilinogen Qn (U)0.2 {Ligia'U}/dLNormal0.2 - 1.0The [facility] CenterComment on above:Performed By: #### UAMIC ####[facility] Etplahithh5[address] [place], [place] [address]Dr. Airam TripathiWBC5-10 AbnormalNONE SEENThe [facility] CenterComment on above:Performed By: #### UAMIC ####[facility] Wapzuxnrtk13[address] [place], [place] [address]Dr. Airam FerrerPon 60-13-8570Kiftnohhsun peptide B (Bld) [Mass/Vol]1496.0 pg/mL Critically high<=900.0The [facility] CenterComment on above:Performed By: #### T4, BNP, MG, TSH, CMADM, CRP, CMP ####[facility] H[address]gjmkuxw[address] [place], [place] [address]Dr. Airam TripathiCARDIAC CONSUELO 3-6on 39-66-9807AC [Catalytic activity/Vol]125 U/BCelvnz01-675Faz [facility] CenterComment on above:Performed By: #### CMREP ####[facility] Snebcvjxwy663[address] [place], [place] [address]Dr. Airam Phillips.MB [Mass/Vol]ng/mLNormal<=3.60The [facility] CenterComment on above:Performed By: #### CMREP ####[facility] Krh[address]vraaoi[address] [place] [address]Dr. Airam TripathiHSTROP5.8 pg/mLNormal4.0-51.3The [facility] CenterComment on above:Result Comment: CUT-OFF POINTS HAVE BEEN ESTABLISHED BASED ON THE FOURTH UNIVERSAL DEFINITIONS OF MY OCARDIALINFARCTION. THE UPPER REFERENCE LIMIT (URL) OF TROPONIN, DEFINED THE 99TH PERCENTILE OFcTnI DISTRIBUTION IN A REFERENCE POPULATION, HAS BEEN CONFIRMED THE DECISION THRESHOLDFOR PA DIAGNOSIS.Performed By: #### CMREP ####[facility] Tevwugrqbn[address] [place] [address]Dr. Airam TripathiCARDIAC CONSUELO ADMITon 49-97-1668YI [Catalytic activity/Vol]121 U/L Esxyyp94-539Syr [facility] CenterComment on above:Performed By: #### T4, BNP, MG, TSH, CMADM, CRP, CMP ####[facility] Rrhntgthdi[address] [place] [address]Dr. Airam TripathiCK.MB [Mass/Vol]3.06 ng/mLNormal<=3.60 The [facility] CenterComment on above:Performed By: #### T4, BNP, MG, TSH, CMADM, CRP, CMP ####[facility] Qpdcihhewc[address] [place] [address]Dr. Selenaneil DeuceHSTROP6.9 pg/mLNormal4.0-51.3TRegency Hospital Company Comment on above:Result Comment: CUT-OFF POINTS HAVE BEEN ESTABLISHED BASED ON THE FOURTH UNIVERSAL DEFINITIONS OF MYOCARDIALINFARCTION. THE UPPER REFERENCE LIMIT (URL) OF TROPONIN, DEFINED THE 99TH PERCENTILE OFcTnI DISTRIBUTION IN A REFERENCE POPULATION, HAS BEEN CONFIRMED THE DECISION THRESHOLDFOR PA DIAGNO SIS.Performed By: #### T4, BNP, MG, TSH, CMADM, CRP, CMP ####[facility] Qzkvumkofc17[address] [place] [address]Dr. Airam UehbmNFZ343 ng/mL Critically high9-82The [facility] CenterComment on above:Performed By: #### T4, BNP, MG, TSH, CMADM, CRP, CMP ####[facility] Shiwagjdtb7[address] [place], [place] [address]Dr. Airam TripathiCBC AUTO DIFFon 73-21-2666LCGO #0.0 103/ulNormal0.0-0.1The [facility] CenterComment on above:Performed By: #### CBC ####[facility] Ymrtwngvtu856[address] [place], [place] [address]Dr. Airam ChangBasophils/100 WBC (Bld)0.2 %Normal0.2-2.0The [facility] CenterComment on above:Performed By: #### CBC ####[facility] Zaaohcfiru6646[address] [place], [place] [address]Dr.Selenalan ChangEO #0.2 103/ulNormal0.0-0.7The [facility] CenterComment on above:Performed By: #### CBC ####[facility] Pquzyzylqn5589[address] [place], [place] [address]Dr.Airam ChangEosinophils/100 WBC (Bld)1.5 %Normal0.9-7.0The [facility] CenterComment on above:Performed By: #### CBC ####[facility] Jpxmbuiyhx504[address] [place], [place] [address]Dr.Airam ChangErythrocyte distribution width (RBC) [Ratio]12.7 %Normal 11.0-15.0The [facility] CenterComment on above:Performed By: #### CBC ####[facility] Knogznwydu6739[address] [place], [place] [address]Dr. Airam ChangHematocrit (Bld) [Volume fraction]30.0 %Critically low36.0-48.0The [facility] CenterComment on above:Performed By: #### CBC ####[facility] Vyljycwpch2889[address] [place], [place] [address]Dr.Airam ChangHemoglobin (Bld) [Mass/Vol]9.6 g/dLCritically low12.0-16.0The [facility] CenterComment on above:Performed By: #### CBC ####[facility] Jgmsrtwvxc[address] [place], [place] [address]Dr.Yilan ChangIG #0.11 10e3/ulCritically high0.00-0.03 The [facility] CenterComment on above:Performed By: #### CBC ####[facility] Ffvytfageu[address] [place] [address]DrBroderick TripathiIG % 1.1 %Critically high0.0-0.5The [facility] HospitalComment on above:Performed By: #### CBC ####[facility] Jvdealamqy8606[address] [place], [place] [address]Dr.Airam DossH #1.5 103/ulNormal1.2-3.8The [facility] HospitalComment on above:Performed By: #### CBC ####[facility] Evdaywqccy3615[address] [place], [place] [address]DrBroderick Dosshocytes/100 WBC (Bld)14.9 % Critically low20.5-60.0The [facility] CenterComment on above:Performed By: #### CBC ####[facility] Omvdlbdrwx8[address] [place], [place] [address]Dr. Airam TripathiKELLERUAL DIFF REQNONormalThe [facility] CenterComment on above: Performed By: #### CBC ####[facility] Dwcljcxfkd035[address] [place], [place] [address]Dr.Airam TripathiST. LUKE'[facility] (RBC) [Entitic mass]30.0 pgNormal 26.7-34.0The [facility] CenterComment on above:Performed By: #### CBC ####[facility] Yfbijplial103[address] [place], [place] [address]Dr. Airam TripathiUPSTATE [facility] (RBC) [Mass/Vol]32.0 g/dAFaibhn72.9-35.2The [facility] Comment on above:Performed By: #### CBC ####[facility] Kuqqzdsbqd4938[address] [place], [place] [address]DrBroderick TripathiMEM[facility] [place] (RBC) [Entitic vol]93.8 fL Gloraz09.0-99.0The [facility] CenterComment on above:Performed By: #### CBC ####[facility] Ritunokdsg9288[address] [place], [place] [address]DrKianna TripathiMONO #0.8 103/ulNormal0.3-0.8The [facility] CenterComment on above: Performed By: #### CBC ####[facility] Baipwjcdbz[address] [place] [address]Dr.Selenalan ChangMonocytes/100 WBC (Bld)7.3 %Normal 1.7-12.0The [facility] CenterComment on above:Performed By: #### CBC ####[facility] Ljuobsewsq1756[address] [place], [place] [address]Dr. Yilan ChangNEUT #7.8 103/ulCritically high1.4-6.5The [facility] CenterComment on above:Performed By: #### CBC ####[facility] Bigybbrnbm2316[address] [place], [place] [address]Dr.Yilan ChangNeutrophils/100 WBC (Bld)75.0 %Normal 43.0-75.0The [facility] CenterComment on above:Performed By: #### CBC ####[facility] Bhylqoutzh7398[address] [place], [place] [address]Dr. Airam ChangPlatelet mean volume (Bld) [Entitic vol]9.1 fLCritically low9.5-13.5 The [facility] CenterComment on above:Performed By: #### CBC ####[facility] Zpoqmlusic[address] [place], [place] [address]Dr.Yilan EmovuFGV302 103/qsSvcjqx619-930Gqp [facility] CenterComment on above:Performed By: #### CBC ####[facility] Wvuhudowkl65[address] [place], [place] [address]Dr. Yineil ChangRBC3.20 106/ulCritically low4.20-5.40The [facility] CenterComment on above:Performed By: #### CBC ####[facility] Sciqjnrdyh1230[address] [place], [place] [address]Dr.Selenalan HxbalLVI78.4 103/ulNormal4.0-11.0The [facility] CenterComment on above:Performed By: #### CBC ####[facility] Auezvimghy[address] [place] [address]Dr.Airam TripathiCRPon 10-34-4317DFN [Mass/Vol]mg/LNormal<=1.0The [facility] CenterComment on above: Performed By: #### T4, BNP, MG, TSH, CMADM, CRP, CMP ####[facility] Refykfeqep79[address] [place] [address]Dr. Airam ChangCT HEAD WO CON on 16-75-4226NY HEAD WO CONNormalThe [facility] CenterCovid-19 PCR (CVDTBH)on 08-56-1071SCJT-CoV-2 (COVID-19) RNA MIKE+probe Ql (Unsp spec)Not detectedNormal NOT DETECTEDThe [facility] CenterComment on above:Result Comment: When diagnostic testing is negative, the possibility of a false negative should be c onsidered inthe context of a patient's recent exposures [...] for this test is supported by the [place] of Health and Human Service's declaration that circumstances exist to justify the emergency use of in vitro diagnostics for the detection and/or diagnosis of the virus that causes COVID-19. This EUA will remain in effect for the duration of the COVID-19declaration justifying emergency of IVDs, unless it is terminated or revoked by the FDA (after which the test may no longer be used).Performed By: #### CVDTBH ####[facility] Ehnczlyixt[address] [place] [address]Dr. Airam ChangLACTATE/LACTIC ACIDon 50-96-8989Zeoqbqf [Moles/Vol]0.5 mmol/LNormal0.4-1.9The [facility] CenterComment on above:Performed By: #### LACT ####[facility] Dwnelegzdo64[address] [place], [place] [address]Dr. Airam TripathiMAGNESIUMon 37-14-6171Yjfhoovew [Mass/Vol]1.9 mg/dLNormal1.8-2.4The [facility] CenterComment on above:Performed By: #### T4, BNP, MG, TSH, CMADM, CRP, CMP ####[facility] Snjenbwixt[address] [place] [address]Dr. Selenalan ChangPROF 14(COMP METB)on 15-68-2246Jlocfzy [Mass/Vol]3.8 g/dL Normal3.4-5.0The [facility] CenterComment on above:Performed By: #### T4, BNP, MG, TSH, CMADM, CRP, CMP ####[facility] Oavitzevzb[address] [place] [address]Dr. Airam ChangAlbumin/Globulin [Mass ratio]1.1 {ratio}NormalThe [facility] CenterCombaraga county memorial hospital on above:Performed By: #### T4, BNP, MG, TSH, CMADM, CRP, CMP ####[facility] Ymxxsyjsvi3189[address] [place], [place] [address]Dr. Selenalan ChangALP [Catalytic activity/Vol]161 U/L Critically fmsu94-317Epk [facility] CenterComment on above:Performed By: #### T4, BNP, MG, TSH, CMADM, CRP, CMP ####[facility] Lyurwchrrr[address] [place] [address]Dr. Selenalan ChangALT [Catalytic activity/Vol]21 U/L Uibesi00-43Wig [facility] CenterComment on above:Performed By: #### T4, BNP, MG, TSH, CMADM, CRP, CMP ####[facility] Plheiahghh[address] [place] [address]Dr. Selenalan DeuceAnion gap [Moles/Vol]12.6 mmol/LNormal The [facility] CenterComment on above:Performed By: #### T4, BNP, MG, TSH, CMADM, CRP, CMP ####[facility] Hclqqqprbp9[address] [place] [address]Dr. Selenalan ChangAST [Catalytic activity/Vol]30 U/BVvntzk14-42Rai [facility] CenterComment on above:Performed By: #### T4, BNP, MG, TSH, CMADM, CRP, CMP ####[facility] Qqtabwsmqc17[address] [place] [address]Dr. Yilan ChangBilirubin [Mass/Vol]0.3 mg/dLNormal0.2-1.0The [facility] CenterComment on above:Performed By: #### T4, BNP, MG, TSH, CMADM, CRP, CMP ####[facility] Ezwekumgaq70[address] [place] [address]Dr. Yilan ChangCalcium [Mass/Vol]8.8 mg/dLNormal8.5-10.1The [facility] CenterComment on above:Performed By: #### T4, BNP, MG, TSH, CMADM, CRP, CMP ####[facility] Utfyjumisl[address] [place], [place] [address]Dr. Yilan Tripathi Chloride [Moles/Vol]91 mmol/LCritically vww88-663Wlu [facility] on above:Performed By: #### T4, BNP, MG, TSH, CMADM, CRP, CMP ####[facility] Tdwpuleala[address] [place], [place] [address]Dr. Yilan ChangCO2 [Moles/Vol]26.9 mmol/IMkulhe74.0-32.0The [facility] CenterCombaraga county memorial hospital on above: Performed By: #### T4, BNP, MG, TSH, CMADM, CRP, CMP ####[facility] Mjrtgskycs[address] [place], [place] [address]Dr. Yilan ChangCreatinine [Mass/Vol]1.83 mg/dLCritically high0.55-1.02The [facility] on above:Performed By: #### T4, BNP, MG, TSH, CMADM, CRP, CMP ####[facility] Qizdanrrin772[address] [place], [place] [address]Dr. Yilan ChangEGFR-AF DAGGHIIW91 mL/min/1.73e9Aagwhshagp low>=60The [facility] CenterComment on above: Performed By: #### T4, BNP, MG, TSH, CMADM, CRP, CMP ####[facility] Shpsfoutxp26[address] [place] [address]Dr. Yilan ChangEGFR-NON AF OEGUPPDX45 mL/min/1.96k7Qwejnycloq low>=60The [facility] CenterComment on above: Performed By: #### T4, BNP, MG, TSH, CMADM, CRP, CMP ####[facility] Ksywaickft46[address] [place] [address]Dr. Yilan ChangGlobulin (S) [Mass/Vol]3.5 g/dLNormalThe [facility] CenterComment on above:Performed By: #### T4, BNP, MG, TSH, CMADM, CRP, CMP ####[facility] Mhlsasrbkt[address] [place] [address]Dr. Yilan ChangGlucose [Mass/Vol]96 mg/dLNormal 74-106The [facility] CenterComment on above:Performed By: #### T4, BNP, MG, TSH, CMADM, CRP, CMP ####[facility] Eligohztij47[address] [place] [address]Dr. Yilan ChangPotassium [Moles/Vol]4.5 mmol/LNormal3.5-5.1The [facility] CenterComment on above:Performed By: #### T4, BNP, MG, TSH, CMADM, CRP, CMP ####[facility] Wsvmhxuuiu16[address] [place] [address]Dr. Yilan ChangProtein [Mass/Vol]7.3 g/dLNormal6.4-8.2The [facility] Comment on above:Performed By: #### T4, BNP, MG, TSH, CMADM, CRP, CMP ####[facility] Qnablmowdl[address] [place] [address]Dr. Yilan ChangSodium [Moles/Vol]126 mmol/LCritically naa100-827Wqb [facility] CenterComment on above:Performed By: #### T4, BNP, MG, TSH, CMADM, CRP, CMP ####[facility] Tjuxmgzbyk7[address] [place] [address]Dr. Yilan ChangUrea nitrogen [Mass/Vol]34.0 mg/dLCritically high7.0-18.0The [facility] CenterComment on above:Performed By: #### T4, BNP, MG, TSH, CMADM, CRP, CMP ####[facility] Gddddjquap[address] [place], [place] [address]Dr. Yilan ChangUrea nitrogen/Creatinine [Mass ratio]18.6 mg/mgNormalThe [facility] CenterComment on above:Performed By: #### T4, BNP, MG, TSH, CMADM, CRP, CMP ####[facility] Hrqcsshttg[address] [place], [place] [address]Dr. Yilan ChangAlbumin [Mass/Vol]3.4 g/dLNormal3.4-5.0The [facility] CenterComment on above:Performed By: #### CMP ####[facility] Xwneiebvbb9[address] [place], [place] [address]Dr.Yilan ChangAlbumin/Globulin [Mass ratio]1.0 {ratio} NormalThe [facility] CenterComment on above:Performed By: #### CMP ####[facility] Msewfpcouy9[address] [place], [place] [address]Dr.Yilan ChangALP [Catalytic activity/Vol]151 U/LCritically rfnl40-416Ukn [facility] CenterComment on above:Performed By: #### CMP ####[facility] Bvpaiwjffi78[address] [place], [place] [address]Dr.Yilan ChangALT [Catalytic activity/Vol]20 U/LNormal 14-59The [facility] CenterComment on above:Performed By: #### CMP ####[facility] Nsgusamkug9[address] [place], [place] [address]Dr.Yilan ChangAnion gap [Moles/Vol]11.7 mmol/LNormalParkview Health Bryan HospitalComment on above:Performed By: #### CMP ####[facility] Pvwyhiogco[address] [place], [place] [address]Dr.Yilan ChangAST [Catalytic activity/Vol]28 U/ISpdynh30-56Ptw [facility] CenterComment on above:Performed By: #### CMP ####[facility] Vpubfkfsgq18[address] [place], [place] [address]Dr.Yilan ChangBilirubin [Mass/Vol]0.3 mg/dLNormal0.2-1.0The [facility] CenterComment on above:Performed By: #### CMP ####[facility] Pvmajinrag[address] [place], [place] [address]Dr.Yilan ChangCalcium [Mass/Vol]8.5 mg/dLNormal8.5-10.1The [facility] CenterComment on above:Performed By: #### CMP ####[facility] Mbvlpmapno247[address] [place], [place] [address]Dr.Yilan ChangChloride [Moles/Vol]91 mmol/LCritically uwp83-530Zfm [facility] CenterComment on above: Performed By: #### CMP ####[facility] Mnovgnghqw8[address] [place], [place] [address]Dr.Yilan ChangCO2 [Moles/Vol]28.3 mmol/LNormal 21.0-32.0The [facility] CenterComment on above:Performed By: #### CMP ####[facility] Cqcueepmkw17[address] [place], [place] [address]Dr. Yilan ChangCreatinine [Mass/Vol]1.68 mg/dLCritically high0.55-1.02The [facility] CenterComment on above:Performed By: #### CMP ####[facility] Flhpgclaty[address] [place], [place] [address]Dr.Yilan ChangEGFR-AF FXEQPRLU84 mL/min/1.15x8Reidhqpxxs low>=60The [facility] CenterComment on above: Performed By: #### CMP ####[facility] Oobljsrkny5[address] [place], [place] [address]Dr.Yilan ChangEGFR-NON AF DLJMMPTS53 mL/min/1.73m2 Critically low>=60The [facility] CenterComment on above:Performed By: #### CMP ####[facility] Ptewqkjxik35[address] [place], [place] [address]Dr. Yilan ChangGlobulin (S) [Mass/Vol]3.5 g/dLNormalThe [facility] CenterComment on above:Performed By: #### CMP ####[facility] Wgfozxiggc[address] [place] [address]Dr.Airam ChangGlucose [Mass/Vol]74 mg/nGWgdrvx36-835 The [facility] CenterComment on above:Performed By: #### CMP ####[facility] Wellbibrxh95[address] [place], [place] [address]Dr.Airam Tripathi Potassium [Moles/Vol]4.0 mmol/LNormal3.5-5.1The [facility] CenterComment on above:Performed By: #### CMP ####[facility] Jfzmwlctom[address] [place], [place] [address]Dr.Airam ChangProtein [Mass/Vol]6.9 g/dLNormal6.4-8.2 The [facility] CenterCombaraga county memorial hospital on above:Performed By: #### CMP ####[facility] Yncoijqoxa27[address] [place], [place] [address]Dr.Airam ChangSodium [Moles/Vol]127 mmol/LCritically iil763-301Zee [facility] CenterComment on above:Performed By: #### CMP ####[facility] Puooqrthbn65[address] [place], [place] [address]Dr.Airam ChangUrea nitrogen [Mass/Vol]29.0 mg/dL Critically high7.0-18.0The [facility] CenterCombaraga county memorial hospital on above:Performed By: #### CMP ####[facility] Opshdwbqtm[address] [place], [place] [address]Dr. Airam ChangUrea nitrogen/Creatinine [Mass ratio]17.3 mg/mgNormalThe [facility] CenterComment on above:Performed By: #### CMP ####[facility] Zliabzrqar65[address] [place], [place] [address]Dr.Airam KvrnsK6fz 06-13-2022 T4 [Mass/Vol]6.80 ug/dLNormal4.80-13.90The [facility] on above: Performed By: #### T4, BNP, MG, TSH, CMADM, CRP, CMP ####[facility] [address]ddmthqzbo[address] [place], [place] [address]Dr. Airam ChangTSHon 29-08-1371NKF4.101 uIU/mLCritically low0.358-3.740The [facility] CenterComment on above:Performed By: #### T4, BNP, MG, TSH, CMADM, CRP, CMP ####[facility] [address]rldmhdz[address] [place] [address]Dr. Airam Tripathi OSMOLALITYon 80-79-1724Wyzhglsszx [Osmolality]272 mosm/kgCritically cpt181-577 The [facility] Medical CenterComment on above:Performed By: #### OSMO ####[facility] Ptorxutjhg[address] [place], [place] [address]Dr. Airam TripathiCBC AUTO DIFFon [id number] #0.0 103/ulNormal0.0-0.1The [facility] CenterComment on above:Performed By: #### CBC ####[facility] Vpohfugegn[address] [place], [place] [address]Dr.Airam ChangBasophils/100 WBC (Bld)0.3 %Normal 0.2-2.0The [facility] CenterComment on above:Performed By: #### CBC ####[facility] Dgvwdicivl[address] [place], [place] [address]Dr.Airam ChangEO # 0.2 103/ulNormal0.0-0.7The [facility] CenterComment on above:Performed By: #### CBC ####[facility] Aepfxmwsti9406[address] [place], [place] [address]Dr. Airam ChangEosinophils/100 WBC (Bld)2.5 %Normal0.9-7.0The [facility] Comment on above:Performed By: #### CBC ####[facility] Unomnkdyim62[address] [place], [place] [address]Dr.Airam ChangErythrocyte distribution width (RBC) [Ratio]12.9 %Ozdqxk81.0-15.0The [facility] CenterComment on above: Performed By: #### CBC ####[facility] Ixtshncbrd24[address] [place], [place] [address]Dr.Airam TripathiHematocrit (Bld) [Volume fraction]29.8 % Critically low36.0-48.0The [facility] CenterComment on above:Performed By: #### CBC ####[facility] R[address]ell[address] [place] [address]DrKianna TripathiHemoglobin (Bld) [Mass/Vol]9.7 g/dLCritically low12.0-16.0The [facility] HospitalComment on above:Performed By: #### CBC ####[facility] Szwqztunzq[address] [place], [place] [address]DrBroderick TripathiIG #0.03 10e3/ulNormal0.00-0.03The [facility] HospitalComment on above:Performed By: #### CBC ####[facility] Vlgjyqpuvm064[address] [place], [place] [address]DrKianna TripathiIG %0.3 %Normal0.0-0.5The [facility] CenterComment on above:Performed By: #### CBC ####[facility] Ckyffzbgem8368[address] [place], [place] [address]Dr.Airam TripathiLYMPH #1.3 103/ulNormal1.2-3.8The [facility] Comment on above:Performed By: #### CBC ####[facility] Wyxxhrymbu1234[address] [place], [place] [address]DrBroderick TripathiLymphocytes/100 WBC (Bld)14.6 %Critically low20.5-60.0The [facility] CenterComment on above:Performed By: #### CBC ####[facility] Kgmbvhpsqe8[address] [place], [place] [address]Dr.Airam TripathiMANUAL DIFF REQNONormalThe [facility] CenterComment on above: Performed By: #### CBC ####[facility] Oqpiujgqlz84[address] [place], [place] [address]DrBroderick TripathiST. [facility] (RBC) [Entitic mass]30.6 pgNormal 26.7-34.0The [facility] CenterComment on above:Performed By: #### CBC ####[facility] Duphynjzmm12[address] [place], [place] [address]Dr. Airam TripathiUP[facility] (RBC) [Mass/Vol]32.6 g/hZQjonbh91.9-35.2The [facility] Comment on above:Performed By: #### CBC ####[facility] Rauinjuloo[address] [place], [place] [address]Dr.Airam TripathiMCV (RBC) [Entitic vol]94.0 fL Jtgzld49.0-99.0The [facility] CenterComment on above:Performed By: #### CBC ####[facility] Nidmfhhuvv5646[address] [place], [place] [address]Dr. Airam ChangMONO #0.5 103/ulNormal0.3-0.8The [facility] HospitalComment on above: Performed By: #### CBC ####[facility] Xqcmteokee9469[address] [place], [place] [address]Dr.Airam ChangMonocytes/100 WBC (Bld)5.7 %Normal 1.7-12.0The [facility] CenterComment on above:Performed By: #### CBC ####[facility] Qpfmjgjhww2565[address] [place], [place] [address]Dr. Airam ChangNEUT #6.9 103/ulCritically high1.4-6.5The [facility] CenterComment on above:Performed By: #### CBC ####[facility] Oyzmubnfvw9[address] [place], [place] [address]Dr.Airam ChangNeutrophils/100 WBC (Bld)76.6 % Critically high43.0-75.0The [facility] HospitalComment on above:Performed By: #### CBC ####[facility] Nqgslodves4685[address] [place], [place] [address]Dr. Selenaneil ChangPlatelet mean volume (Bld) [Entitic vol]9.2 fLCritically low9.5-13.5 The [facility] CenterComment on above:Performed By: #### CBC ####[facility] Bkvewgmxpr8212[address] [place], [place] [address]Dr.Selenalan ZkbpaRNK907 103/hsHgfamm821-321Zsq [facility] CenterComment on above:Performed By: #### CBC ####[facility] Azqjexjsel94[address] [place], [place] [address]Dr. Airam ChangRBC3.17 106/ulCritically low4.20-5.40The [facility] CenterComment on above:Performed By: #### CBC ####[facility] Jjmauksaqq2836[address] [place], [place] [address]Dr.Airam ChangWBC9.1 103/ulNormal4.0-11.0The [facility] CenterComment on above:Performed By: #### CBC ####[facility] Ytqurseedo213[address] [place], [place] [address]Dr.Airam ChangPROF 14(COMP METB)on 14-89-5502Axbluwo [Mass/Vol]3.4 g/dLNormal3.4-5.0The [facility] Comment on above:Performed By: #### CMP ####[facility] Hxhdrervqz8[address] [place], [place] [address]Dr.Airam ChangAlbumin/Globulin [Mass ratio] 1.0 {ratio}NormalThe [facility] CenterComment on above:Performed By: #### CMP ####[facility] Vnmoceeejl5969[address] [place], [place] [address]Dr. Airam ChangALP [Catalytic activity/Vol]156 U/LCritically egez91-929Fno [facility] CenterComment on above:Performed By: #### CMP ####[facility] Owkcyghudn2234[address] [place], [place] [address]Dr.Airam ChangALT [Catalytic activity/Vol]18 U/UNkyfxw48-29Exg [facility] CenterComment on above:Performed By: #### CMP ####[facility] Riczupdhhm4698[address] [place], [place] [address]Dr.Airam TripathiAnion gap [Moles/Vol]10.8 mmol/LNormalThe [facility] Comment on above:Performed By: #### CMP ####[facility] Bddjfbsnxl0048[address] [place], [place] [address]Dr.Selenalan ChangAST [Catalytic activity/Vol]27 U/DAhtngm87-45Xdg [facility] CenterComment on above:Performed By: #### CMP ####[facility] T[address]edmdnup[address] [place] [address]Dr. Yilan ChangBilirubin [Mass/Vol]0.2 mg/dLNormal0.2-1.0The [facility] Comment on above:Performed By: #### CMP ####[facility] Cwkacyccyv9612[address] [place], [place] [address]Dr.Yilan ChangCalcium [Mass/Vol]8.1 mg/dL Critically low8.5-10.1The [facility] CenterComment on above:Performed By: #### CMP ####[facility] Uylnumrltq915[address] [place], [place] [address]Dr. Yilan ChangChloride [Moles/Vol]92 mmol/LCritically lyk91-826Nat [facility] CenterComment on above:Performed By: #### CMP ####[facility] Rhidyngggk711[address] [place], [place] [address]Dr.Yilan ChangCO2 [Moles/Vol] 27.4 mmol/VCvsvby01.0-32.0The [facility] CenterComment on above:Performed By: #### CMP ####[facility] Rjhmippula[address] [place], [place] [address]Dr.Yilan ChangCreatinine [Mass/Vol]1.57 mg/dLCritically high0.55-1.02The [facility] CenterComment on above:Performed By: #### CMP ####[facility] Kffczgcryo[address] [place], [place] [address]Dr.Yilan ChangEGFR-AF RYFBVFZI42 mL/min/1.02r7Mvkyxyzkta low>=60The [facility] CenterComment on above: Performed By: #### CMP ####[facility] Duygypuses1250[address] [place], [place] [address]Dr.Yilan ChangEGFR-NON AF HGHVFTQI07 mL/min/1.73m2 Critically low>=60The [facility] CenterComment on above:Performed By: #### CMP ####[facility] Tlbikemuqd6038[address] [place], [place] [address]Dr. Yilan ChangGlobulin (S) [Mass/Vol]3.4 g/dLNormalThe [facility] CenterComment on above:Performed By: #### CMP ####[facility] F[address]dqrq[address] [place] [address]Dr.Airam ChangGlucose [Mass/Vol]82 mg/uNZmpguk10-678 The [facility] CenterComment on above:Performed By: #### CMP ####[facility] Isibovhaum8440[address] [place], [place] [address]Dr.Airam Tripathi Potassium [Moles/Vol]4.2 mmol/LNormal3.5-5.1The [facility] CenterComment on above:Performed By: #### CMP ####[facility] Hdosfudpzm4412[address] [place], [place] [address]Dr.Airam TripathiProtein [Mass/Vol]6.8 g/dLNormal6.4-8.2 The [facility] CenterComment on above:Performed By: #### CMP ####[facility] Bauyeipaxt[address] [place], [place] [address]Dr.Airam TripathiSodium [Moles/Vol]126 mmol/LCritically mwb681-890Vfg [facility] CenterComment on above:Performed By: #### CMP ####[facility] Mfozdtgsze9306[address] [place], [place] [address]Dr.Airam ChangUrea nitrogen [Mass/Vol]35.0 mg/dL Critically high7.0-18.0The [facility] CenterComment on above:Performed By: #### CMP ####[facility] Zqxlavlceb95[address] [place], [place] [address]Dr. Airam ChangUrea nitrogen/Creatinine [Mass ratio]22.3 mg/mgNormalThe [facility] CenterComment on above:Performed By: #### CMP ####[facility] Pxczyptqpu8827[address] [place], [place] [address]Dr.Airam ChangOSMOLALITYon 18-48-3920Okpahlriet [Osmolality]276 mosm/qpDkzpeg809-926Mzf [facility] Comment on above:Performed By: #### OSMO ####[facility] Osqbtvjydh[address] [place], [place] [address]Dr. Airam TripathiCBC AUTO DIFFon 06-01-2022 BASO #0.1 103/ulNormal0.0-0.1The [facility] CenterComment on above:Performed By: #### CBC ####[facility] Khtelngzbt[address] [place], [place] [address]Dr.Yilan ChangBasophils/100 WBC (Bld)0.7 %Normal0.2-2.0The [facility] CenterComment on above:Performed By: #### CBC ####[facility] Xivocexyof9970[address] [place], [place] [address]Dr.Yilan ChangEO #0.3 103/ul Normal0.0-0.7The [facility] CenterComment on above:Performed By: #### CBC ####[facility] Bmtmpsbcuu4113[address] [place], [place] [address]Dr. Selenalan ChangEosinophils/100 WBC (Bld)3.3 %Normal0.9-7.0The [facility] Comment on above:Performed By: #### CBC ####[facility] Omafartksy[address] [place], [place] [address]Dr.Airam ChangErythrocyte distribution width (RBC) [Ratio]13.2 %Qfkyxm36.0-15.0The [facility] CenterComment on above: Performed By: #### CBC ####[facility] Ahmzxjskoe9148[address] [place], [place] [address]Dr.Airam ChangHematocrit (Bld) [Volume fraction]32.0 % Critically low36.0-48.0The [facility] CenterComment on above:Performed By: #### CBC ####[facility] Plhytxtteb1994[address] [place], [place] [address]Dr. Selenalan ChangHemoglobin (Bld) [Mass/Vol]10.3 g/dLCritically low12.0-16.0The [facility] CenterComment on above:Performed By: #### CBC ####[facility] Yoxzbdhorn4868[address] [place], [place] [address]Dr.Selenalan ChangIG #0.05 10e3/ulCritically high0.00-0.03The [facility] CenterComment on above:Performed By: #### CBC ####[facility] [address]vu[address] [place] [address]Dr.Airam TripathiIG %0.7 %Critically high0.0-0.5The [facility] CenterComment on above:Performed By: #### CBC ####[facility] Rjryvfwrdy[address] [place] [address]Dr.Airam TripathiLYMPH #1.7 103/ulNormal1.2-3.8The [facility] CenterComment on above:Performed By: #### CBC ####[facility] Ejyofguwqr939[address] [place], [place] [address]Dr.Airam TripathiLymphocytes/100 WBC (Bld)22.6 %Yquief30.5-60.0The [facility] CenterComment on above:Performed By: #### CBC ####[facility] Imxjkbmtwl3901[address] [place], [place] [address]Dr.Airam TripathiMANUAL DIFF REQNONormalThe [facility] CenterComment on above:Performed By: #### CBC ####[facility] Fufsnwzrpm0440[address] [place], [place] [address]Dr.Airam TripathiST. LU[facility] (RBC) [Entitic mass]30.8 pgNormal 26.7-34.0The [facility] CenterComment on above:Performed By: #### CBC ####[facility] Sixdulrobt5617[address] [place], [place] [address]Dr. Airam TripathiUP[facility] (RBC) [Mass/Vol]32.2 g/tGCkmyro56.9-35.2The [facility] Comment on above:Performed By: #### CBC ####[facility] Vqhpiuztyf4129[address] [place], [place] [address]Dr.Airam TripathiV (RBC) [Entitic vol]95.8 fL Ypxlqv84.0-99.0The [facility] CenterComment on above:Performed By: #### CBC ####[facility] Rypanatgcg9464[address] [place], [place] [address]Dr. Airam TripathiMONO #0.6 103/ulNormal0.3-0.8The [facility] CenterComment on above: Performed By: #### CBC ####[facility] [address]gtqd[address] [place] [address]Dr.Airam ChangMonocytes/100 WBC (Bld)8.6 %Normal 1.7-12.0The [facility] on above:Performed By: #### CBC ####[facility] Bsvvapcitz[address] [place] [address]Dr. Airam ChangNEUT #4.8 103/ulNormal1.4-6.5The [facility] CenterComment on above: Performed By: #### CBC ####[facility] Wfetzkbmse94[address] [place] [address]Dr.Airam ChangNeutrophils/100 WBC (Bld)64.1 %Normal 43.0-75.0The [facility] CenterCombar[facility] on above:Performed By: #### CBC ####[facility] Yrhheintbg7109[address] [place], [place] [address]Dr. Airam TripathiPlatelet mean volume (Bld) [Entitic vol]10.0 fLNormal9.5-13.5The [facility] CenterCombar[facility] on above:Performed By: #### CBC ####[facility] Uqcdfhnuzt2928[address] [place], [place] [address]Dr.Airam XbakkDWM086 103/ul Rqywzj895-344Rmv [facility] CenterCombaraga [facility] on above:Performed By: #### CBC ####[facility] Sktsqitaeb752[address] [place], [place] [address]Dr. Airam ChangRBC3.34 106/ulCritically low4.20-5.40The [facility] CenterCombar[facility] on above:Performed By: #### CBC ####[facility] Qxrowfecuu[address] [place], [place] [address]Dr.Airam ChangWBC7.5 103/ulNormal4.0-11.0The [facility] CenterCombar[facility] on above:Performed By: #### CBC ####[facility] Vifhrpzdwb5120[address] [place], [place] [address]Dr.Selenalan ChangPROF 14(COMP METB)on 81-79-6441Fxtfrah [Mass/Vol]3.5 g/dLNormal3.4-5.0The [facility] Comment on above:Performed By: #### CMP ####[facility] Gmcqjyzqhx76[address] [place] [address]Dr.Yilan ChangAlbumin/Globulin [Mass ratio] 1.1 {ratio}NormalThe [facility] CenterComment on above:Performed By: #### CMP ####[facility] [address]psxg[address] [place] [address]Dr. Yilan ChangALP [Catalytic activity/Vol]167 U/LCritically mfyn38-087Std [facility] CenterComment on above:Performed By: #### CMP ####[facility] Wpileghhqs314[address] [place], [place] [address]Dr.Yilan ChangALT [Catalytic activity/Vol]24 U/EPrfcrl71-78Zjm [facility] CenterComment on above:Performed By: #### CMP ####[facility] Ilsbdmgtnc1453[address] [place], [place] [address]Dr.Yilan ChangAnion gap [Moles/Vol]14.1 mmol/LNormalThe [facility] Comment on above:Performed By: #### CMP ####[facility] Kjjuijbkdi8611[address] [place], [place] [address]Dr.Yilan ChangAST [Catalytic activity/Vol]27 U/EUdoqdi01-13Upn [facility] CenterComment on above:Performed By: #### CMP ####[facility] Gpyylcuehp724[address] [place], [place] [address]Dr. Yilan ChangBilirubin [Mass/Vol]0.3 mg/dLNormal0.2-1.0The [facility] Comment on above:Performed By: #### CMP ####[facility] Ewlcpulrkt2112[address] [place], [place] [address]Dr.Yilan ChangCalcium [Mass/Vol]8.0 mg/dL Critically low8.5-10.1The [facility] CenterComment on above:Performed By: #### CMP ####[facility] Eogfwzwxxj9524[address] [place], [place] [address]Dr. Yilan ChangChloride [Moles/Vol]96 mmol/LCritically byc97-076Uex [facility] CenterComment on above:Performed By: #### CMP ####[facility] Epobpgplen625[address] [place], [place] [address]Dr.Yilan ChangCO2 [Moles/Vol] 24.6 mmol/RQxpdmh22.0-32.0The [facility] CenterComment on above:Performed By: #### CMP ####[facility] Mdfrpzqjan6446[address] [place], [place] [address]Dr.Yilan ChangCreatinine [Mass/Vol]1.79 mg/dLCritically high0.55-1.02The [facility] CenterComment on above:Performed By: #### CMP ####[facility] Xnwecdgxij162[address] [place], [place] [address]Dr.Yilan ChangEGFR-AF SPHGXCOU33 mL/min/1.72q7Igmlbyrhnl low>=60The [facility] CenterComment on above: Performed By: #### CMP ####[facility] Llvevmimpm3274[address] [place], [place] [address]Dr.Yilan ChangEGFR-NON AF NBDHDNXH66 mL/min/1.73m2 Critically low>=60The [facility] CenterComment on above:Performed By: #### CMP ####[facility] Qrxcxevqej4498[address] [place], [place] [address]Dr. Airam ChangGlobulin (S) [Mass/Vol]3.3 g/dLNormalThe [facility] CenterComment on above:Performed By: #### CMP ####[facility] Vnuvcmcnyc447[address] [place], [place] [address]Dr.Yilan ChangGlucose [Mass/Vol]58 mg/dLCritically low 74-106The [facility] CenterComment on above:Performed By: #### CMP ####[facility] Ccdipolffk[address] [place], [place] [address]Dr.Yilan Tripathi Potassium [Moles/Vol]4.7 mmol/LNormal3.5-5.1The [facility] CenterComment on above:Performed By: #### CMP ####[facility] Vuksgfwyet8625[address] [place], [place] [address]Dr.Yilan ChangProtein [Mass/Vol]6.8 g/dLNormal6.4-8.2 The [facility] CenterComment on above:Performed By: #### CMP ####[facility] Zyhvgjtqpb3188[address] [place], [place] [address]Dr.Airam ChangSodium [Moles/Vol]130 mmol/LCritically qtj994-744Gcd [facility] CenterComment on above:Performed By: #### CMP ####[facility] Umfcferkoi583[address] [place], [place] [address]Dr.Airam ChangUrea nitrogen [Mass/Vol]30.0 mg/dL Critically high7.0-18.0The [facility] CenterComment on above:Performed By: #### CMP ####[facility] Rcgfsdczxn6903[address] [place], [place] [address]Dr. Selenalan ChangUrea nitrogen/Creatinine [Mass ratio]16.8 mg/mgNormalThe [facility] CenterComment on above:Performed By: #### CMP ####[facility] Wzewiofnee5526[address] [place], [place] [address]Dr.Airam ChangOSMOLALITYon 31-49-2819Hztjanoupk [Osmolality]275 mosm/vzEhdkpf293-151Nbo [facility] Comment on above:Performed By: #### OSMO ####[facility] Ghvmanbhzr6057[address] [place], [place] [address]Dr. Airam TripathiCBC AUTO DIFFon 05-26-2022 BASO #0.0 103/ulNormal0.0-0.1The [facility] CenterComment on above:Performed By: #### CBC ####[facility] Wrngdqemck10[address] [place], [place] [address]Dr.Airam TripathiBasophils/100 WBC (Bld)0.4 %Normal0.2-2.0The [facility] CenterComment on above:Performed By: #### CBC ####[facility] Gwzqghefrg027[address] [place], [place] [address]Dr.Selenalan ChangEO #0.3 103/ul Normal0.0-0.7The [facility] CenterComment on above:Performed By: #### CBC ####[facility] Qfngpvzeww[address] [place] [address]Dr. Airam ChangEosinophils/100 WBC (Bld)3.2 %Normal0.9-7.0The [facility] Comment on above:Performed By: #### CBC ####[facility] Lfihtvblwy9364[address] [place], [place] [address]Dr.Airam ChangErythrocyte distribution width (RBC) [Ratio]13.0 %Lkyzfq04.0-15.0The [facility] CenterComment on above: Performed By: #### CBC ####[facility] Tdlugsgqak7133[address] [place], [place] [address]Dr.Airam ChangHematocrit (Bld) [Volume fraction]30.4 % Critically low36.0-48.0The [facility] CenterComment on above:Performed By: #### CBC ####[facility] Mgboluaiwj3125[address] [place], [place] [address]Dr. Selenaneil ChangHemoglobin (Bld) [Mass/Vol]9.6 g/dLCritically low12.0-16.0The [facility] CenterComment on above:Performed By: #### CBC ####[facility] Cseemskmqr4157[address] [place], [place] [address]Dr.Selenalan ChangIG #0.06 10e3/ulCritically high0.00-0.03The [facility] CenterComment on above:Performed By: #### CBC ####[facility] Calflowxzu4366[address] [place], [place] [address]Dr.Airam ChangIG %0.7 %Critically high0.0-0.5The [facility] CenterComment on above:Performed By: #### CBC ####[facility] Qimpgjglzi034[address] [place], [place] [address]Dr.Selenalan ChangLYMPH #1.9 103/ulNormal1.2-3.8The [facility] CenterComment on above:Performed By: #### CBC ####[facility] Ytgbjxunwj7112[address] [place], [place] [address]Dr.Airam ChangLymphocytes/100 WBC (Bld)20.6 %Qcjuaw17.5-60.0The [facility] HospitalComment on above:Performed By: #### CBC ####[facility] [address]ky[address] [place] [address]Dr.Airam TripathiMANUAL DIFF REQNONormalThe [facility] CenterComment on above:Performed By: #### CBC ####[facility] Iujrgfbler84[address] [place] [address]Dr.Airam TripathiH (RBC) [Entitic mass]30.1 pgNormal 26.7-34.0The [facility] HospitalComment on above:Performed By: #### CBC ####[facility] Cfspxqisgv2467[address] [place], [place] [address]Dr. Airam TripathiHC (RBC) [Mass/Vol]31.6 g/oPDznmpi49.9-35.2The [facility] Comment on above:Performed By: #### CBC ####[facility] Jurzyinvgu0[address] [place], [place] [address]Dr.Airam TripathiV (RBC) [Entitic vol]95.3 fL Pycogh98.0-99.0The [facility] CenterComment on above:Performed By: #### CBC ####[facility] Anpfcfjaup4609[address] [place], [place] [address]Dr. Airam TripathiMONO #0.6 103/ulNormal0.3-0.8The [facility] CenterComment on above: Performed By: #### CBC ####[facility] Blwgzzvdpo7234[address] [place], [place] [address]Dr.Airam ChangMonocytes/100 WBC (Bld)6.9 %Normal 1.7-12.0The [facility] CenterComment on above:Performed By: #### CBC ####[facility] Wfzpryszlk[address] [place], [place] [address]Dr. Airam TripathiNEUT #6.1 103/ulNormal1.4-6.5The [facility] CenterComment on above: Performed By: #### CBC ####[facility] Lcprbdocqa6514[address] [place], [place] [address]Dr.Airam DeuceNeutrophils/100 WBC (Bld)68.2 %Normal 43.0-75.0The [facility] CenterComment on above:Performed By: #### CBC ####[facility] Ehgcrgogll[address] [place] [address]Dr. Airam TripathiPlatelet mean volume (Bld) [Entitic vol]9.7 fLNormal9.5-13.5The [facility] CenterComment on above:Performed By: #### CBC ####[facility] Sisknbtxcq70[address] [place], [place] [address]Dr.Airam GmjryXNA608 103/ul Nvzbkp574-407Nzm [facility] CenterComment on above:Performed By: #### CBC ####[facility] Zlrwrpgoyu5[address] [place], [place] [address]Dr. Airam TripathiRBC3.19 106/ulCritically low4.20-5.40The [facility] CenterComment on above:Performed By: #### CBC ####[facility] Aaievuhlnr07[address] [place], [place] [address]Dr.Airam ChangWBC9.0 103/ulNormal4.0-11.0The [facility] Medical CenterComment on above:Performed By: #### CBC ####[facility] Emdarapoft[address] [place], [place] [address]Dr.Airam TripathiPROF 14(COMP METB)on 64-12-2510Tjlatsm [Mass/Vol]3.4 g/dLNormal3.4-5.0The [facility] Comment on above:Performed By: #### CMP ####[facility] Focdebojmf[address] [place], [place] [address]Dr.Airam TripathiAlbumin/Globulin [Mass ratio] 1.0 {ratio}NormalThe [facility] CenterComment on above:Performed By: #### CMP ####[facility] Ebuhszfvgi[address] [place], [place] [address]Dr. Airam TripathiALP [Catalytic activity/Vol]153 U/LCritically dcim25-833Weo [facility] CenterComment on above:Performed By: #### CMP ####[facility] Uqekvedhqc[address] [place], [place] [address]Dr.Yilan ChangALT [Catalytic activity/Vol]21 U/WSycafo38-57Jgf [facility] CenterComment on above:Performed By: #### CMP ####[facility] Yiwruyizrp[address] [place], [place] [address]Dr.Airam ChangAnion gap [Moles/Vol]13.6 mmol/LNormalThe [facility] Comment on above:Performed By: #### CMP ####[facility] Oacjjniism[address] [place], [place] [address]Dr.Airam ChangAST [Catalytic activity/Vol]23 U/HVkxrvb84-80Xjb [facility] CenterComment on above:Performed By: #### CMP ####[facility] Imrlokdskv[address] [place], [place] [address]Dr. Airam ChangBilirubin [Mass/Vol]0.2 mg/dLNormal0.2-1.0The [facility] Comment on above:Performed By: #### CMP ####[facility] Mztocbitrk[address] [place], [place] [address]Dr.Yineil ChangCalcium [Mass/Vol]8.4 mg/dL Critically low8.5-10.1The [facility] CenterComment on above:Performed By: #### CMP ####[facility] Fslrjhewzw[address] [place], [place] [address]Dr. Yineil ChangChloride [Moles/Vol]97 mmol/LCritically rsp55-069Tlc [facility] CenterComment on above:Performed By: #### CMP ####[facility] Tknlndxfjq[address] [place], [place] [address]Dr.Yineil ChangCO2 [Moles/Vol] 25.2 mmol/LMuxznp72.0-32.0The [facility] CenterComment on above:Performed By: #### CMP ####[facility] Ruaynokczc[address] [place], [place] [address]Dr.Yilan ChangCreatinine [Mass/Vol]1.58 mg/dLCritically high0.55-1.02The [facility] CenterComment on above:Performed By: #### CMP ####[facility] Bvrnqkdgnq[address] [place], [place] [address]Dr.Airam ChangEGFR-AF QNMMRSNX42 mL/min/1.25j3Lrqlartrnh low>=60The [facility] CenterComment on above: Performed By: #### CMP ####[facility] Mhovbcummq3863[address] [place], [place] [address]Dr.Selenalan ChangEGFR-NON AF PWAHKNXL25 mL/min/1.73m2 Critically low>=60The [facility] CenterComment on above:Performed By: #### CMP ####[facility] Atyhjzqyqx9[address] [place], [place] [address]Dr. Airam TripathiGlobulin (S) [Mass/Vol]3.4 g/dLNormalThe [facility] CenterComment on above:Performed By: #### CMP ####[facility] Eyfmbnkurs8897[address] [place], [place] [address]Dr.Airam ChangGlucose [Mass/Vol]74 mg/bADhsnek94-148 The [facility] CenterComment on above:Performed By: #### CMP ####[facility] Pcffhmqzsu5[address] [place], [place] [address]Dr.Airam Tripathi Potassium [Moles/Vol]4.8 mmol/LNormal3.5-5.1The [facility] CenterComment on above:Performed By: #### CMP ####[facility] Hngowabdgp276[address] [place], [place] [address]Dr.Airam TripathiProtein [Mass/Vol]6.8 g/dLNormal6.4-8.2 The [facility] CenterComment on above:Performed By: #### CMP ####[facility] Thjtpulgda5[address] [place], [place] [address]Dr.iAram ChangSodium [Moles/Vol]131 mmol/LCritically ufy035-459Vil [facility] CenterComment on above:Performed By: #### CMP ####[facility] Xyjqasosax[address] [place], [place] [address]Dr.Airam TripathiUrea nitrogen [Mass/Vol]31.0 mg/dL Critically high7.0-18.0The [facility] CenterComment on above:Performed By: #### CMP ####[facility] [address] [place] [address]Dr. Airam ChangUrea nitrogen/Creatinine [Mass ratio]19.6 mg/mgNormalThe [facility] CenterComment on above:Performed By: #### CMP ####[facility] Qzlmixasqw48[address] [place], [place] [address]Dr.Airam ChangOSMOLALITYon 14-24-5678Ooyyelvfvb [Osmolality]281 mosm/ugIdwelx334-830Hcp [facility] Comment on above:Performed By: #### OSMO ####[facility] Ioghczhdsa1479[address] [place], [place] [address]Dr. Airam ChangCBC AUTO DIFFon 05-17-2022 BASO #0.1 103/ulNormal0.0-0.1The [facility] CenterComment on above:Performed By: #### CBC ####[facility] Peolnqdiwy[address] [place], [place] [address]Dr.Airam ChangBasophils/100 WBC (Bld)0.6 %Normal0.2-2.0The [facility] CenterComment on above:Performed By: #### CBC ####[facility] Zlenkpjbxi8303[address] [place], [place] [address]Dr.Selenalan ChangEO #0.2 103/ul Normal0.0-0.7The [facility] CenterComment on above:Performed By: #### CBC ####[facility] Qkytccblhh16[address] [place], [place] [address]Dr. Airam ChangEosinophils/100 WBC (Bld)1.9 %Normal0.9-7.0The [facility] Comment on above:Performed By: #### CBC ####[facility] Khlxfuualg[address] [place], [place] [address]Dr.Airam ChangErythrocyte distribution width (RBC) [Ratio]12.9 %Lwgfqf35.0-15.0The [facility] CenterComment on above: Performed By: #### CBC ####[facility] Txvseqmfiz[address] [place], [place] [address]Dr.Airam ChangHematocrit (Bld) [Volume fraction]32.1 % Critically low36.0-48.0The [facility] HospitalComment [facility] above:Performed By: #### CBC ####[facility] Fnmleoiyik9[address] [place], [place] [address]Dr. Airam TripathiHemoglobin (Bld) [Mass/Vol]9.9 g/dLCritically low12.0-16.0The [facility] HospitalComment on above:Performed By: #### CBC ####[facility] Imslzlrzaj17[address] [place], [place] [address]Dr.Airam TripathiIG #0.05 10e3/ulCritically high0.00-0.03The [facility] HospitalComment on above:Performed By: #### CBC ####[facility] Oghoufpupq4135[address] [place], [place] [address]Dr.Airam TripathiIG %0.6 %Critically high0.0-0.5The [facility] HospitalComment on above:Performed By: #### CBC ####[facility] Kcgorqybeo466[address] [place], [place] [address]Dr.Airam TripathiLYMPH #1.3 103/ulNormal1.2-3.8The [facility] HospitalComment on above:Performed By: #### CBC ####[facility] Kxgwadczea8375[address] [place], [place] [address]Dr.Airam TripathiLymphocytes/100 WBC (Bld)15.2 %Critically low20.5-60.0The [facility] HospitalComment on above: Performed By: #### CBC ####[facility] Koigknwqzp7000[address] [place], [place] [address]Dr.Airam TripathiMANUAL DIFF REQNONormalThe [facility] HospitalComment on above:Performed By: #### CBC ####[facility] Txccedcawh0644[address] [place], [place] [address]Dr.Airam TripathiST. [facility] (RBC) [Entitic mass]30.0 jwNyiwov43.7-34.0The [facility] HospitalComment on above: Performed By: #### CBC ####[facility] Rbjpsjqsnt6295[address] [place], [place] [address]Dr.Airam TripathiMCHC (RBC) [Mass/Vol]30.8 g/dLNormal 29.9-35.2The [facility] CenterComment on above:Performed By: #### CBC ####[facility] Lltnijuohk0747[address] [place], [place] [address]Dr. Airam TripathiMCV (RBC) [Entitic vol]97.3 jTUevjdu09.0-99.0The [facility] Comment on above:Performed By: #### CBC ####[facility] Mwqbpztmda1048[address] [place], [place] [address]Dr.Airam TripathiMONO #0.5 103/ulNormal0.3-0.8 The [facility] CenterComment on above:Performed By: #### CBC ####[facility] Bakdwfztux9506[address] [place], [place] [address]Dr.Airam Tripathi Monocytes/100 WBC (Bld)5.4 %Normal1.7-12.0The [facility] CenterComment on above: Performed By: #### CBC ####[facility] Rxpzdhyugo5118[address] [place], [place] [address]Dr.Airam TripathiNEUT #6.5 103/ulNormal1.4-6.5The [facility] CenterComment on above:Performed By: #### CBC ####[facility] Iasqwgrvuh2566[address] [place], [place] [address]Dr.Airam TripathiNeutrophils/100 WBC (Bld)76.3 %Critically high43.0-75.0The [facility] HospitalComment on above: Performed By: #### CBC ####[facility] Alrehjrzle30[address] [place], [place] [address]Dr.Airam TripathiPlatelet mean volume (Bld) [Entitic vol] 10.1 fLNormal9.5-13.5The [facility] CenterComment on above:Performed By: #### CBC ####[facility] Bgnaaxiczs4[address] [place], [place] [address]Dr. Selenalan FkwvaTOG022 103/thKriyih035-758Jzz [facility] CenterComment on above: Performed By: #### CBC ####[facility] [address] [place] [address]Dr.Airam ChangRBC3.30 106/ulCritically low4.20-5.40The [facility] CenterComment on above:Performed By: #### CBC ####[facility] Wybtotiwbf5069[address] [place], [place] [address]Dr.Airam ChangWBC8.5 103/ul Normal4.0-11.0The [facility] CenterComment on above:Performed By: #### CBC ####[facility] Wcawcrnkcj11[address] [place], [place] [address]Dr. Selenalan ChangPROF 14(COMP METB)on 72-41-6746Jfhlfjt [Mass/Vol]3.1 g/dLCritically low3.4-5.0The [facility] CenterComment on above:Performed By: #### CMP ####[facility] Nbroojgweu3256[address] [place], [place] [address]Dr. Airam ChangAlbumin/Globulin [Mass ratio]0.9 {ratio}NormalThe [facility] Comment on above:Performed By: #### CMP ####[facility] Yunbxofuvf8385[address] [place], [place] [address]Dr.Selenalan ChangALP [Catalytic activity/Vol] 162 U/LCritically ztld98-375Ebr [facility] CenterComment on above:Performed By: #### CMP ####[facility] Xsezuvbpdt1446[address] [place], [place] [address]Dr.Yilan ChangALT [Catalytic activity/Vol]22 U/ERizcse35-53Vnw [facility] CenterComment on above:Performed By: #### CMP ####[facility] Yosdxwlqjx4090[address] [place], [place] [address]Dr.Selenalan ChangAnion gap [Moles/Vol]9.4 mmol/LNormalThe [facility] CenterComment on above:Performed By: #### CMP ####[facility] Tuxwjkphxm9730[address] [place], [place] [address]Dr.Yilan ChangAST [Catalytic activity/Vol]26 U/SNqcsym58-38Ekt [facility] CenterComment on above:Performed By: #### CMP ####[facility] [address]raikq[address] [place] [address]Dr.Yilan ChangBilirubin [Mass/Vol]0.2 mg/dLNormal0.2-1.0The [facility] CenterComment on above:Performed By: #### CMP ####[facility] Augmugiboo[address] [place], [place] [address]Dr.Yilan ChangCalcium [Mass/Vol]8.2 mg/dLCritically low8.5-10.1The [facility] CenterComment on above:Performed By: #### CMP ####[facility] Quaxlvornp7254[address] [place], [place] [address]Dr.Yilan ChangChloride [Moles/Vol]103 mmol/JNzfohn92-794Dzs [facility] CenterCombaraga [facility] on above:Performed By: #### CMP ####[facility] Bjtmvbqkue8356[address] [place], [place] [address]Dr.Yilan ChangCO2 [Moles/Vol]24.8 mmol/PDurhlb74.0-32.0The [facility] CenterComment on above:Performed By: #### CMP ####[facility] Hzlzzpkwba3667[address] [place], [place] [address]Dr.Yilan ChangCreatinine [Mass/Vol]1.19 mg/dLCritically high0.55-1.02The [facility] CenterCombar[facility] on above:Performed By: #### CMP ####[facility] Ekxtbpylwx[address] [place], [place] [address]Dr.Yilan ChangEGFR-AF ASGQQMEJ35 mL/min/1.73m2 Critically low>=60The [facility] CenterComment on above:Performed By: #### CMP ####[facility] Ihwpvczrzc3427[address] [place], [place] [address]Dr. Yilan ChangEGFR-NON AF VQMUDIPB62 mL/min/1.01x6Nyahbbbagz low>=60The [facility] on above:Performed By: #### CMP ####[facility] Cfkpilkeuy5135[address] [place], [place] [address]Dr.Yilan ChangGlobulin (S) [Mass/Vol]3.6 g/dLNormalThe [facility] CenterComment on above:Performed By: #### CMP ####[facility] Cf[address]kxnfcz[address] [place] [address]Dr.Airam ChangGlucose [Mass/Vol]75 mg/vWUjhpgl20-577RonParkview Health Bryan Hospital Comment on above:Performed By: #### CMP ####[facility] Zlvxromtms[address] [place] [address]Dr.Airam ChangPotassium [Moles/Vol]5.2 mmol/LCritically high3.5-5.1The [facility] CenterComment on above:Performed By: #### CMP ####[facility] Ccgxekqrkm7233[address] [place], [place] [address]Dr.Yilan ChangProtein [Mass/Vol]6.7 g/dLNormal6.4-8.2The [facility] Comment on above:Performed By: #### CMP ####[facility] Phhpmhucrw[address] [place], [place] [address]Dr.Selenalan ChangSodium [Moles/Vol]132 mmol/L Critically jfw016-201Prg [facility] CenterComment on above:Performed By: #### CMP ####[facility] Lndvvghphf[address] [place], [place] [address]Dr. Airam ChangUrea nitrogen [Mass/Vol]28.0 mg/dLCritically high7.0-18.0The [facility] CenterComment on above:Performed By: #### CMP ####[facility] Cbxebhgnbm9609[address] [place], [place] [address]Dr.Selenalan ChangUrea nitrogen/Creatinine [Mass ratio]23.5 mg/mgNormalThe [facility] CenterComment on above:Performed By: #### CMP ####[facility] Crkpsysbbb7654[address] [place], [place] [address]Dr.Airam ChangOSMOLALITYon 81-15-9763Kvxxarnfus [Osmolality]281 mosm/gfVtrlke683-986Svp [facility] CenterComment on above: Performed By: #### OSMO ####[facility] Atphbjbogv6835[address] [place], [place] [address]Dr. Airam TripathiCBC AUTO DIFFon 02-64-7128IZTQ #0.1 103/ulNormal0.0-0.1The [facility] CenterComment on above:Performed By: #### CBC ####[facility] Mtjolcwsin4338[address] [place], [place] [address]Dr. Yilan ChangBasophils/100 WBC (Bld)0.5 %Normal0.2-2.0The [facility] CenterComment on above:Performed By: #### CBC ####[facility] Tncruckqdc5583[address] [place], [place] [address]Dr.Yilan ChangEO #0.2 103/ulNormal0.0-0.7The [facility] CenterComment on above:Performed By: #### CBC ####[facility] Htgfdfeblt4095[address] [place], [place] [address]Dr.Yilan ChangEosinophils/100 WBC (Bld)2.1 %Normal0.9-7.0The [facility] CenterComment on above:Performed By: #### CBC ####[facility] Kgfszamypx9406[address] [place], [place] [address]Dr.Yilan ChangErythrocyte distribution width (RBC) [Ratio]12.9 %Normal 11.0-15.0The [facility] CenterComment on above:Performed By: #### CBC ####[facility] Ceyhgilabm4166[address] [place], [place] [address]Dr. Yilan ChangHematocrit (Bld) [Volume fraction]31.9 %Critically low36.0-48.0The [facility] CenterComment on above:Performed By: #### CBC ####[facility] Tfnzoaredq3026[address] [place], [place] [address]Dr.Yilan ChangHemoglobin (Bld) [Mass/Vol]9.7 g/dLCritically low12.0-16.0The [facility] CenterComment on above:Performed By: #### CBC ####[facility] Cwazzzuxmo8197[address] [place], [place] [address]Dr.Yilan ChangIG #0.06 10e3/ulCritically high0.00-0.03 The [facility] CenterComment on above:Performed By: #### CBC ####[facility] [address]xth[address] [place] [address]Dr.Airam TripathiIG % 0.7 %Critically high0.0-0.5The [facility] CenterComment on above:Performed By: #### CBC ####[facility] Yoxmmgfwow9126[address] [place], [place] [address]Dr.Airam TripathiLYMPH #1.9 103/ulNormal1.2-3.8The [facility] CenterComment on above:Performed By: #### CBC ####[facility] Kmjtqdwfan4083[address] [place], [place] [address]Dr.Airam TripathiLymphocytes/100 WBC (Bld)21.1 %Normal 20.5-60.0The [facility] CenterComment on above:Performed By: #### CBC ####[facility] Pmkkeyfvsk7517[address] [place], [place] [address]Dr. Airam TripathiMANUAL DIFF REQNONormalThe [facility] CenterComment on above: Performed By: #### CBC ####[facility] Rendpiqqas[address] [place], [place] [address]Dr.Airam TripathiMCH (RBC) [Entitic mass]29.7 pgNormal 26.7-34.0The [facility] CenterComment on above:Performed By: #### CBC ####[facility] Dietgvujku707[address] [place], [place] [address]Dr. Airam TripathiMCHC (RBC) [Mass/Vol]30.4 g/fZJwcwrg55.9-35.2The [facility] Comment on above:Performed By: #### CBC ####[facility] Dtdhcxspyo9[address] [place], [place] [address]Dr.Airam TripathiMCV (RBC) [Entitic vol]97.6 fL Nyibri65.0-99.0The [facility] CenterComment on above:Performed By: #### CBC ####[facility] Yemmepycas1829[address] [place], [place] [address]Dr. Airam TripathiMONO #0.6 103/ulNormal0.3-0.8The [facility] CenterComment on above: Performed By: #### CBC ####[facility] Eddlwztvkz[address] [place] [address]Dr.Selenalan ChangMonocytes/100 WBC (Bld)6.8 %Normal 1.7-12.0The [facility] CenterComment on above:Performed By: #### CBC ####[facility] Ym[address]tfrt[address] [place] [address]Dr. Selenalan ChangNEUT #6.3 103/ulNormal1.4-6.5The [facility] CenterComment on above: Performed By: #### CBC ####[facility] [address]qswgq[address] [place] [address]Dr.Selenalan ChangNeutrophils/100 WBC (Bld)68.8 %Normal 43.0-75.0The [facility] CenterComment on above:Performed By: #### CBC ####[facility] Cwbvisnhph0625[address] [place], [place] [address]Dr. Airam TripathiPlatelet mean volume (Bld) [Entitic vol]9.6 fLNormal9.5-13.5The [facility] CenterComment on above:Performed By: #### CBC ####[facility] Mixddolrpi9724[address] [place], [place] [address]Dr.Airam GqnftYVN410 103/ul Ovhdiy069-053Zpc [facility] CenterComment on above:Performed By: #### CBC ####[facility] I[address]qzflkovz[address] [place] [address]Dr. Airam ChangRBC3.27 106/ulCritically low4.20-5.40The [facility] CenterCombaraga [facility] hospital on above:Performed By: #### CBC ####[facility] Vinzbtjtzf[address] [place], [place] [address]Dr.Airam ChangWBC9.1 103/ulNormal4.0-11.0The [facility] CenterCombaraga county memorial hospital on above:Performed By: #### CBC ####[facility] Tfndujjsos3925[address] [place], [place] [address]Dr.Selenalan ChangPROF 14(COMP METB)on 73-71-1652Kvjidwm [Mass/Vol]3.3 g/dLCritically low3.4-5.0The [facility] CenterComment on above:Performed By: #### CMP ####[facility] Qtyfvkfekw[address] [place] [address]Dr.Airam Tripathi Albumin/Globulin [Mass ratio]1.0 {ratio}NormalThe [facility] CenterComment on above:Performed By: #### CMP ####[facility] Zeynrwimpx2876[address] [place], [place] [address]Dr.Selenaneil DeuceALP [Catalytic activity/Vol]152 U/L Critically ovkv31-014Qdo [facility] CenterComment on above:Performed By: #### CMP ####[facility] Sdwwubtzsi8314[address] [place], [place] [address]Dr. Airam DeuceALT [Catalytic activity/Vol]23 U/QFcmdat25-59Reg [facility] Comment on above:Performed By: #### CMP ####[facility] Omiyfounln0850[address] [place], [place] [address]Dr.Airam DeuceAnion gap [Moles/Vol]12.0 mmol/LNormalThe [facility] CenterComment on above:Performed By: #### CMP ####[facility] Zzcfozxwon8176[address] [place], [place] [address]Dr. Airam ChangAST [Catalytic activity/Vol]25 U/ZXbmtfj37-45Vtz [facility] Comment on above:Performed By: #### CMP ####[facility] Esgmcujsxj4711[address] [place], [place] [address]Dr.Airam ChangBilirubin [Mass/Vol]0.2 mg/dL Normal0.2-1.0The [facility] CenterComment on above:Performed By: #### CMP ####[facility] Zpvrekkoef6439[address] [place], [place] [address]Dr. Airam ChangCalcium [Mass/Vol]8.2 mg/dLCritically low8.5-10.1The [facility] CenterComment on above:Performed By: #### CMP ####[facility] Lyxnawswxu20[address] [place], [place] [address]Dr.Airam ChangChloride [Moles/Vol]100 mmol/VZrcfgd89-654Cmg [facility] CenterComment on above:Performed By: #### CMP ####[facility] Swkvhdopwb4776[address] [place], [place] [address]Dr.Yilan ChangCO2 [Moles/Vol]24.8 mmol/CJnehty37.0-32.0The [facility] CenterComment on above:Performed By: #### CMP ####[facility] Rvvnjxoyvb20[address] [place], [place] [address]Dr.Yilan ChangCreatinine [Mass/Vol]1.46 mg/dLCritically high0.55-1.02The [facility] CenterComment on above:Performed By: #### CMP ####[facility] Jspszgpciv9213[address] [place], [place] [address]Dr.Yilan ChangEGFR-AF JCRQSXLX78 mL/min/1.73m2 Critically low>=60The [facility] CenterComment on above:Performed By: #### CMP ####[facility] Iqusxtqfbb[address] [place], [place] [address]Dr. Yilan ChangEGFR-NON AF EGQGQBCW10 mL/min/1.08j3Chzjkzhndl low>=60The [facility] CenterComment on above:Performed By: #### CMP ####[facility] Vsyoppjmzk6126[address] [place], [place] [address]Dr.Yilan ChangGlobulin (S) [Mass/Vol]3.3 g/dLNormalThe [facility] CenterComment on above:Performed By: #### CMP ####[facility] Jghlcngfge2698[address] [place], [place] [address]Dr.Yilan ChangGlucose [Mass/Vol]86 mg/rGYjiyzp35-068Idt [facility] Comment on above:Performed By: #### CMP ####[facility] Xhqbcsdzyu50[address] [place], [place] [address]Dr.Yilan ChangPotassium [Moles/Vol]4.8 mmol/LNormal3.5-5.1The [facility] CenterComment on above:Performed By: #### CMP ####[facility] Hbunuiafen8207[address] [place], [place] [address]Dr. Yilan ChangProtein [Mass/Vol]6.6 g/dLNormal6.4-8.2The [facility] CenterComment on above:Performed By: #### CMP ####[facility] Ibgulqxcdu679[address] [place], [place] [address]Dr.Airam ChangSodium [Moles/Vol]132 mmol/LCritically lve168-423Mzb [facility] CenterComment on above:Performed By: #### CMP ####[facility] Ccntbcnlpx15[address] [place], [place] [address]Dr. Airam ChangUrea nitrogen [Mass/Vol]34.0 mg/dLCritically high7.0-18.0The [facility] CenterComment on above:Performed By: #### CMP ####[facility] Hnzcdtzstd0825[address] [place], [place] [address]Dr.Airam ChangUrea nitrogen/Creatinine [Mass ratio]23.3 mg/mgNoGood Samaritan HospitalComment on above:Performed By: #### CMP ####[facility] Mwzfzgfhez[address] [place], [place] [address]Dr.Airam ChangOSMOLALITYon 58-48-3512Tirlxombgt [Osmolality]284 mosm/onJeyirc144-446Fpa [facility] CenterComment on above: Performed By: #### OSMO ####[facility] Igcosggjta025[address] [place], [place] [address]Dr. Airam ChangXR LSPINE MIN 4 VIEWSon 77-46-6552HN LSPINE MIN 4 VIEWSNormSelect Medical [facility] Rehabilitation HospitalCB AUTO DIFFon 77-06-2202ZAMM #0.1 103/ulNormal0.0-0.1[facility] HospitalCombaraga county memorial hospital on above:Performed By: #### CBC ####[facility] Wztaucavkx[address] [place], [place] [address]Dr. Airam ChangBasophils/100 WBC (Bld)0.6 %Normal0.2-2.0[facility] Bryan HospitalComment on above:Performed By: #### CBC ####[facility] Ccmmxblybd85[address] [place], [place] [address]Dr.Yilan ChangEO #0.3 103/ulNormal0.0-0.7The Munger HospitalComment on above:Performed By: #### CBC ####[facility] Eqvrmzaomz79[address] [place], [place] [address]Dr.Yilan ChangEosinophils/100 WBC (Bld)4.2 %Normal0.9-7.0The [facility] HospitalComment on above:Performed By: #### CBC ####[facility] Qsmjurgepv[address] [place], [place] [address]Dr.Yilan ChangErythrocyte distribution width (RBC) [Ratio]13.4 %Normal 11.0-15.0The [facility] HospitalComment on above:Performed By: #### CBC ####[facility] Whzshflgtl7[address] [place], [place] [address]Dr. Yilan ChangHematocrit (Bld) [Volume fraction]30.7 %Critically low36.0-48.0The [facility] HospitalComment on above:Performed By: #### CBC ####[facility] Vzwlzldzgz[address] [place], [place] [address]Dr.Selenalan ChangHemoglobin (Bld) [Mass/Vol]9.6 g/dLCritically low12.0-16.0The [facility] CenterComment on above:Performed By: #### CBC ####[facility] Erlhyexajt60[address] [place], [place] [address]Dr.Yilan ChangIG #0.05 10e3/ulCritically high0.00-0.03 The [facility] CenterComment on above:Performed By: #### CBC ####[facility] Cftgaqckiu9656[address] [place], [place] [address]Dr.Yilan ChangIG % 0.6 %Critically high0.0-0.5The [facility] HospitalComment on above:Performed By: #### CBC ####[facility] Djylymmtla9336[address] [place], [place] [address]Dr.Yilan ChangLYMPH #1.9 103/ulNormal1.2-3.8The [facility] CenterComment on above:Performed By: #### CBC ####[facility] [address]qu[address] [place] [address]Dr.Airam TripathiLymphocytes/100 WBC (Bld)23.5 %Normal 20.5-60.0The [facility] CenterComment on above:Performed By: #### CBC ####[facility] Domrychtjn1434[address] [place], [place] [address]Dr. Airam TripathiMANUAL DIFF REQNONormalThe [facility] CenterComment on above: Performed By: #### CBC ####[facility] Dlstxvljgu7897[address] [place], [place] [address]Dr.Airam TripathiH (RBC) [Entitic mass]30.8 pgNormal 26.7-34.0The [facility] CenterComment on above:Performed By: #### CBC ####[facility] Bqrczellms036[address] [place], [place] [address]Dr. Airam TripathiHC (RBC) [Mass/Vol]31.3 g/qJGxcumb20.9-35.2The [facility] Comment on above:Performed By: #### CBC ####[facility] Vrqeoushah7169[address] [place], [place] [address]Dr.Airam TripathiMCV (RBC) [Entitic vol]98.4 fL Nwsidk58.0-99.0The [facility] CenterComment on above:Performed By: #### CBC ####[facility] Kqdvrhhpes964[address] [place], [place] [address]Dr. Airam TripathiMONO #0.6 103/ulNormal0.3-0.8The [facility] CenterComment on above: Performed By: #### CBC ####[facility] Vadtscxkuy8413[address] [place], [place] [address]Dr.Airam ChangMonocytes/100 WBC (Bld)7.4 %Normal 1.7-12.0The [facility] CenterComment on above:Performed By: #### CBC ####[facility] Tbraugqgoz326[address] [place], [place] [address]Dr. Airam TripathiNEUT #5.0 103/ulNormal1.4-6.5The [facility] CenterComment on above: Performed By: #### CBC ####[facility] [address]vequqqx[address] [place] [address]Dr.Airam TripathiNeutrophils/100 WBC (Bld)63.7 %Normal 43.0-75.0The [facility]ier Hospitalment on above:Performed By: #### CBC ####[facility] Gtagqrvnrg[address] [place] [address]Dr. Airam TripathiPlatelet mean volume (Bld) [Entitic vol]9.5 fLNormal9.5-13.5The [facility] CenterComment on above:Performed By: #### CBC ####[facility] Xaehcxgqus1943[address] [place], [place] [address]Dr.Airam TripathiPLT280 103/ul Alxoql801-324Xkx [facility] CenterComment on above:Performed By: #### CBC ####[facility] Nvrqqjjljs4415[address] [place], [place] [address]Dr. Selenaneil DeuceRBC3.12 106/ulCritically low4.20-5.40The [facility] CenterComment on above:Performed By: #### CBC ####[facility] Exfjabgoqg364[address] [place], [place] [address]Dr.Airam TripathiWBC7.9 103/ulNormal4.0-11.0The [facility] on above:Performed By: #### CBC ####[facility] Rdoxbkoyeg1580[address] [place], [place] [address]Dr.Selenaneil TripathiPROF 14(COMP METB)on 16-66-5442Wrijajl [Mass/Vol]3.1 g/dLCritically low3.4-5.0The [facility] CenterComment on above:Performed By: #### CMP ####[facility] Sahepwsmwr[address] [place], [place] [address]Dr.Selenaneil Tripathi Albumin/Globulin [Mass ratio]0.9 {ratio}NormalThe [facility] on above:Performed By: #### CMP ####[facility] Tockfkgejq114[address] [place], [place] [address]Dr.Airam TripathiALP [Catalytic activity/Vol]140 U/L Critically yohs66-512Uhc Sophie HospitalComment on above:Performed By: #### CMP ####[facility] X[address]wauepa[address] [place] [id number]. Yilan ChangALT [Catalytic activity/Vol]24 U/PIlhiwv70-74Ywr [facility] Comment on above:Performed By: #### CMP ####[facility] Ubuxzlfubs[address] [place] [id number].Yilan ChangAnion gap [Moles/Vol]11.2 mmol/LNormalThe [facility] CenterComment on above:Performed By: #### CMP ####[facility] Prvwvjclqw54[address] [place] [address]Dr. Yilan ChangAST [Catalytic activity/Vol]26 U/HRtghrr49-07Hkf [facility] Comment on above:Performed By: #### CMP ####[facility] Boncwypfhw[address] [place] [address]Dr.Yilan ChangBilirubin [Mass/Vol]0.2 mg/dL Normal0.2-1.0The [facility] CenterComment on above:Performed By: #### CMP ####[facility] Wxovamxroe[address] [place], [place] [address]Dr. Yilan ChangCalcium [Mass/Vol]8.3 mg/dLCritically low8.5-10.1The [facility] CenterComment on above:Performed By: #### CMP ####[facility] Vzwmynpxjb[address] [place] [address]Dr.Yilan ChangChloride [Moles/Vol]101 mmol/RIwlsoi33-361Sgr [facility] CenterComment on above:Performed By: #### CMP ####[facility] Zqstnlkyqe08[address] [place] [address]Dr.Yilan ChangCO2 [Moles/Vol]25.5 mmol/BFszuih37.0-32.0The [facility] CenterComment on above:Performed By: #### CMP ####[facility] Bsrcfzvitg260[address] [place] [address]Dr.Yilan ChangCreatinine [Mass/Vol]1.43 mg/dLCritically high0.55-1.02The [facility] CenterComment on above:Performed By: #### CMP ####[facility] Vugmoyqjir46[address] [place] [address]Dr.Yilan ChangEGFR-AF GJXJUQEW57 mL/min/1.73m2 Critically low>=60The [facility] CenterComment on above:Performed By: #### CMP ####[facility] Ehezrntvmh6[address] [place] [address]Dr. Yilan ChangEGFR-NON AF EEOAPKQT58 mL/min/1.90r0Pzghylmyny low>=60The [facility] CenterComment on above:Performed By: #### CMP ####[facility] Bgeudjwyft[address] [place], [place] [address]Dr.Yilan ChangGlobulin (S) [Mass/Vol]3.3 g/dLNormalThe [facility] CenterComment on above:Performed By: #### CMP ####[facility] Fzbifhnxiq8533[address] [place], [place] [address]Dr.Yilan ChangGlucose [Mass/Vol]74 mg/pQGivmdr25-991Ohj [facility] Comment on above:Performed By: #### CMP ####[facility] Uloauiqmwx620[address] [place], [place] [address]Dr.Yilan ChangPotassium [Moles/Vol]4.7 mmol/LNormal3.5-5.1The [facility] CenterComment on above:Performed By: #### CMP ####[facility] Bbcqfqpcpa5[address] [place], [place] [address]Dr. Yilan ChangProtein [Mass/Vol]6.4 g/dLNormal6.4-8.2The [facility] CenterComment on above:Performed By: #### CMP ####[facility] Estrzeihrl8535[address] [place], [place] [address]Dr.Yilan ChangSodium [Moles/Vol]133 mmol/LCritically luv836-965Xqp [facility] CenterComment on above:Performed By: #### CMP ####[facility] Awfzayvwwa086[address] [place], [place] [address]Dr. Yilan ChangUrea nitrogen [Mass/Vol]38.0 mg/dLCritically high7.0-18.0The [facility] CenterComment on above:Performed By: #### CMP ####[facility] Abamjwbfiw3617[address] [place], [place] [address]Dr.Selenalan ChangUrea nitrogen/Creatinine [Mass ratio]26.6 mg/mgNormalThCommunity Memorial HospitalComment on above:Performed By: #### CMP ####[facility] Agplzoofsb4227[address] [place], [place] [address]Dr.Selenaneil ChangOSMOLALITYon 17-92-0914Rdzfiytjqa [Osmolality]292 mosm/buIaxpbz627-573Cic [facility] CenterComment on above: Performed By: #### OSMO ####[facility] Ebxkfkxlir868[address] [place], [place] [address]Dr. Selenaneil ChangCBC AUTO DIFFon 18-64-4225JMNL #0.0 103/ulNormal0.0-0.1The [facility] CenterCombaraga [facility] memorial hospital on above:Performed By: #### CBC ####[facility] Flnehrvfps4[address] [place], [place] [address]Dr. Yilan ChangBasophils/100 WBC (Bld)0.5 %Normal0.2-2.0The [facility] on above:Performed By: #### CBC ####[facility] Nbkspvsnfx4717[address] [place], [place] [address]Dr.Yilan ChangEO #0.2 103/ulNormal0.0-0.7The [facility] CenterCombaraga [facility] memorial hospital on above:Performed By: #### CBC ####[facility] Uwhhrgptyu5649[address] [place], [place] [address]Dr.Selenalan ChangEosinophils/100 WBC (Bld)3.4 %Normal0.9-7.0The [facility] CenterComment on above:Performed By: #### CBC ####[facility] Oevoclsssx398[address] [place], [place] [address]Dr.Selenalan ChangErythrocyte distribution width (RBC) [Ratio]13.4 %Normal 11.0-15.0The [facility] CenterComment on above:Performed By: #### CBC ####[facility] Lyfqofeelh25[address] [place] [address]Dr. Airam TripathiHematocrit (Bld) [Volume fraction]31.6 %Critically low36.0-48.0The [facility] CenterComment on above:Performed By: #### CBC ####[facility] Qohycqdffn0[address] [place] [address]Dr.Airam TripathiHemoglobin (Bld) [Mass/Vol]9.8 g/dLCritically low12.0-16.0The [facility] HospitalComment on above:Performed By: #### CBC ####[facility] Xmtkrgotuy0364[address] [place], [place] [address]Dr.Selenalan ChangIG #0.02 10e3/ulNormal0.00-0.03The [facility] CenterComment on above:Performed By: #### CBC ####[facility] Fqokipxswk9687[address] [place], [place] [address]Dr.Airam ChangIG %0.3 %Normal 0.0-0.5The [facility] CenterComment on above:Performed By: #### CBC ####[facility] Znhcjymryx8496[address] [place], [place] [address]Dr.Airam TripathiLYMPH #1.3 103/ulNormal1.2-3.8The [facility] CenterComment on above:Performed By: #### CBC ####[facility] Qhhdmmbeji7044[address] [place], [place] [address]Dr.Airam TripathiLymphocytes/100 WBC (Bld)21.7 %Epomho88.5-60.0The [facility] CenterComment on above:Performed By: #### CBC ####[facility] Hjuahopedp312[address] [place], [place] [address]Dr.Selenaneil TripathiMANUAL DIFF REQ NONormalThe [facility] CenterComment on above:Performed By: #### CBC ####[facility] Rjvsipahun[address] [place], [place] [address]Dr. Airam TripathiMCH (RBC) [Entitic mass]30.7 ibFxayqv28.7-34.0The [facility] Comment on above:Performed By: #### CBC ####[facility] Jhsfjpxprb[address] [place] [address]Dr.Airam BrookeHC (RBC) [Mass/Vol]31.0 g/dL Hifdng67.9-35.2The [facility] CenterComment on above:Performed By: #### CBC ####[facility] Wsvurcmqer4750[address] [place], [place] [address]Dr. Airam TripathiMCV (RBC) [Entitic vol]99.1 fLCritically high81.0-99.0The [facility] CenterComment on above:Performed By: #### CBC ####[facility] Gowtbczqtu8233[address] [place], [place] [address]Dr.Airam TripathiMONO #0.3 103/ulNormal0.3-0.8The [facility] CenterComment on above:Performed By: #### CBC ####[facility] Bmrjeftymo811[address] [place], [place] [address]Dr. Airam TripathiMonocytes/100 WBC (Bld)5.2 %Normal1.7-12.0The [facility] Comment on above:Performed By: #### CBC ####[facility] Frxbxrkfqd1574[address] [place], [place] [address]Dr.Airam TripathiNEUT #4.1 103/ulNormal1.4-6.5 The [facility] CenterComment on above:Performed By: #### CBC ####[facility] Hujiuctopc9286[address] [place], [place] [address]Dr.Airam Tripathi Neutrophils/100 WBC (Bld)68.9 %Sbxlzq10.0-75.0The [facility] CenterComment on above:Performed By: #### CBC ####[facility] Fmxrowzrhl3918[address] [place], [place] [address]Dr.Airam TripathiPlatelet mean volume (Bld) [Entitic vol] 9.8 fLNormal9.5-13.5The [facility] CenterComment on above:Performed By: #### CBC ####[facility] Kcuhjzcbul9228[address] [place], [place] [address]Dr. Yilan CerdzQIG740 103/orKnrfiq142-688Kwb [facility] CenterComment on above: Performed By: #### CBC ####[facility] Sulzzpmmps79[address] [place] [address]Dr.Yineil ChangRBC3.19 106/ulCritically low4.20-5.40The [facility] CenterComment on above:Performed By: #### CBC ####[facility] Pldkhxpnlw0911[address] [place], [place] [address]Dr.Yineil ChangWBC5.9 103/ul Normal4.0-11.0The [facility] CenterComment on above:Performed By: #### CBC ####[facility] Qdolciicau942[address] [place], [place] [address]Dr. Selenalan ChangPROF 14(COMP METB)on 63-39-8924Exourys [Mass/Vol]2.9 g/dLCritically low3.4-5.0The [facility] CenterComment on above:Performed By: #### CMP ####[facility] Ffqvhkmapy742[address] [place], [place] [address]Dr. Airam ChangAlbumin/Globulin [Mass ratio]0.9 {ratio}NormalThe [facility] Comment on above:Performed By: #### CMP ####[facility] Ussaldmxoo4[address] [place], [place] [address]Dr.Airam ChangALP [Catalytic activity/Vol] 127 U/LCritically hhac38-151Eic [facility] CenterComment on above:Performed By: #### CMP ####[facility] Ptvbmezdce53[address] [place], [place] [address]Dr.Airam ChangALT [Catalytic activity/Vol]22 U/AJzyvkh48-56Wvw [facility] CenterComment on above:Performed By: #### CMP ####[facility] Jvcuadzzng0704[address] [place], [place] [address]Dr.Airam TripathiAnion gap [Moles/Vol]6.7 mmol/LNormalThe [facility] CenterComment on above:Performed By: #### CMP ####[facility] Agevsbzyfd2393[address] [place], [place] [address]Dr.Yilan ChangAST [Catalytic activity/Vol]24 U/FKocqpw40-75Oam [facility] CenterComment on above:Performed By: #### CMP ####[facility] Dlwvlmewxn5359[address] [place], [place] [address]Dr.Yilan ChangBilirubin [Mass/Vol]0.2 mg/dLNormal0.2-1.0The [facility] CenterComment on above:Performed By: #### CMP ####[facility] Wtxnboraxz4183[address] [place], [place] [address]Dr.Yilan ChangCalcium [Mass/Vol]8.2 mg/dLCritically low8.5-10.1The [facility] CenterComment on above:Performed By: #### CMP ####[facility] Ptsilbpkzn4699[address] [place], [place] [address]Dr.Yilan ChangChloride [Moles/Vol]105 mmol/YEgrall23-103Nxu [facility] CenterComment on above:Performed By: #### CMP ####[facility] Muxlxfwlgt5558[address] [place], [place] [address]Dr.Yilan ChangCO2 [Moles/Vol]28.2 mmol/ABgjvsm83.0-32.0The [facility] CenterComment on above:Performed By: #### CMP ####[facility] Tlajvsciyi7316[address] [place], [place] [address]Dr.Yilan ChangCreatinine [Mass/Vol]1.22 mg/dLCritically high0.55-1.02The [facility] CenterComment on above:Performed By: #### CMP ####[facility] Plyreofrvz744[address] [place], [place] [address]Dr.Yilan ChangEGFR-AF GJODDPTR05 mL/min/1.73m2 Critically low>=60The [facility] CenterComment on above:Performed By: #### CMP ####[facility] Bthgmrlzqa112[address] [place], [place] [address]Dr. Yilan ChangEGFR-NON AF TXBQFKAE61 mL/min/1.05p9Kopeurocdi low>=60The [facility] CenterComment on above:Performed By: #### CMP ####[facility] Cnoltxbbyf911[address] [place], [place] [address]Dr.Yilan ChangGlobulin (S) [Mass/Vol]3.2 g/dLNoGood Samaritan HospitalComment on above:Performed By: #### CMP ####[facility] Uzupeouadw773[address] [place], [place] [address]Dr.Selenalan ChangGlucose [Mass/Vol]77 mg/wAPwtzlz53-032Vyd [facility] Comment on above:Performed By: #### CMP ####[facility] Zldflkquto9760[address] [place], [place] [address]Dr.Selenalan ChangPotassium [Moles/Vol]4.9 mmol/LNormal3.5-5.1The [facility] CenterComment on above:Performed By: #### CMP ####[facility] Cwtdhegamp6798[address] [place], [place] [address]Dr. Selenalan ChangProtein [Mass/Vol]6.1 g/dLCritically low6.4-8.2The [facility] Comment on above:Performed By: #### CMP ####[facility] Zqfpahborp5374[address] [place], [place] [address]Dr.Selenalan ChangSodium [Moles/Vol]135 mmol/L Critically gfw839-514Lcg [facility] CenterComment on above:Performed By: #### CMP ####[facility] Vmqdpbhqsz7289[address] [place], [place] [address]Dr. Selenalan ChangUrea nitrogen [Mass/Vol]30.0 mg/dLCritically high7.0-18.0The [facility] CenterComment on above:Performed By: #### CMP ####[facility] Jjamajkdjb4046[address] [place], [place] [address]Dr.Selenalan ChangUrea nitrogen/Creatinine [Mass ratio]24.6 mg/mgNoGood Samaritan HospitalComment on above:Performed By: #### CMP ####[facility] Yidgnsachj3425[address] [place], [place] [address]Dr.Selenalan ChangOSMOLALITYon 75-87-2194Sarptdpuze [Osmolality]289 mosm/fpGwwxwl934-136Hcg [facility] CenterComment on above: Performed By: #### OSMO ####[facility] Bcbwcaczdn23[address] [place] [address]Dr. Airam TripathiCBC AUTO DIFFon 19-24-3347HYJL #0.0 103/ulNormal0.0-0.1The [facility] CenterComment on above:Performed By: #### CBC ####[facility] Jlglbwlaio2233[address] [place], [place] [address]Dr. Airam ChangBasophils/100 WBC (Bld)0.4 %Normal0.2-2.0The [facility] CenterComment on above:Performed By: #### CBC ####[facility] Mvtpzmovlm7229[address] [place], [place] [address]Dr.Selenalan ChangEO #0.2 103/ulNormal0.0-0.7The [facility] CenterComment on above:Performed By: #### CBC ####[facility] Etlrsemhbp778[address] [place], [place] [address]Dr.Airam ChangEosinophils/100 WBC (Bld)3.1 %Normal0.9-7.0The [facility] CenterComment on above:Performed By: #### CBC ####[facility] Mdiqmajdzk3912[address] [place], [place] [address]Dr.Airam ChangErythrocyte distribution width (RBC) [Ratio]13.8 %Normal 11.0-15.0The [facility] CenterComment on above:Performed By: #### CBC ####[facility] Yojvpnmule8736[address] [place], [place] [address]Dr. Airam ChangHematocrit (Bld) [Volume fraction]29.5 %Critically low36.0-48.0The [facility] CenterComment on above:Performed By: #### CBC ####[facility] Gjmhnncadg3755[address] [place], [place] [address]Dr.Airam ChangHemoglobin (Bld) [Mass/Vol]9.2 g/dLCritically low12.0-16.0The [facility] CenterComment on above:Performed By: #### CBC ####[facility] Jdqjkfehrg4627[address] [place], [place] [address]Dr.Airam ChangIG #0.02 10e3/ulNormal0.00-0.03The [facility] CenterComment on above:Performed By: #### CBC ####[facility] Lrigbjnqxh4[address] [place] [address]Dr.Airam TripathiIG %0.4 %Normal 0.0-0.5The [facility] HospitalComment on above:Performed By: #### CBC ####[facility] Znjhvjujyr4059[address] [place], [place] [address]Dr.Airam TripathiLYMPH #0.8 103/ulCritically low1.2-3.8The [facility] CenterComment on above:Performed By: #### CBC ####[facility] Obeuhbizgk0170[address] [place], [place] [address]Dr.Airam Dossmphocytes/100 WBC (Bld)14.0 %Critically low20.5-60.0 The [facility] CenterComment on above:Performed By: #### CBC ####[facility] Jjpsqxfqjy4418[address] [place], [place] [address]Dr.Airam TripathiMANUAL DIFF REQNONormalThe [facility] CenterComment on above:Performed By: #### CBC ####[facility] Daxibqknlj4466[address] [place], [place] [address]Dr. Selenaneil TripathiST. LUKE'[facility] (RBC) [Entitic mass]30.4 fiGkrnwa08.7-34.0[facility] Comment on above:Performed By: #### CBC ####[facility] Uwtkrvlmqg910[address] [place], [place] [address]Dr.Airam DeuceUPSTATE UNIVERSITY [facility] (RBC) [Mass/Vol]31.2 g/dL Odykqv56.9-35.2The [facility] CenterComment on above:Performed By: #### CBC ####[facility] Zsbhmnqeqq4794[address] [place], [place] [address]Dr. Airam DeuceV (RBC) [Entitic vol]97.4 yMRjupgh03.0-99.0[facility] Comment on above:Performed By: #### CBC ####[facility] Ryxyumoxxy4628[address] [place], [place] [address]Dr.Airam TripathiMONO #0.3 103/ulNormal0.3-0.8 The [facility] CenterComment on above:Performed By: #### CBC ####[facility] Mfiwnntmhl0[address] [place] [address]Dr.Airam Tripathi Monocytes/100 WBC (Bld)5.6 %Normal1.7-12.0The [facility] CenterComment on above: Performed By: #### CBC ####[facility] Tojmwpcoxv95[address] [place], [place] [address]Dr.Airam TripathiNEUT #4.2 103/ulNormal1.4-6.5The [facility] CenterComment on above:Performed By: #### CBC ####[facility] Fqrmhobmwh0325[address] [place], [place] [address]Dr.Airam TripathiNeutrophils/100 WBC (Bld)76.5 %Critically high43.0-75.0The [facility] CenterComment on above: Performed By: #### CBC ####[facility] Uvqtaxtjxm2735[address] [place], [place] [address]Dr.Airam TripathiPlatelet mean volume (Bld) [Entitic vol] 9.4 fLCritically low9.5-13.5The [facility] CenterComment on above:Performed By: #### CBC ####[facility] Njmnhcxxeb4624[address] [place], [place] [address]Dr.Selenalan ZtyheITH925 103/vjQwgjfv328-885Ztf [facility] CenterComment on above:Performed By: #### CBC ####[facility] Xjjdhuymdd7[address] [place], [place] [address]Dr.Airam ChangRBC3.03 106/ulCritically low4.20-5.40The [facility] CenterComment on above:Performed By: #### CBC ####[facility] Lgwaztyzpq79[address] [place], [place] [address]Dr.Selenalan ChangWBC5.5 103/ul Normal4.0-11.0The [facility] CenterComment on above:Performed By: #### CBC ####[facility] Hdhuhmcbfw[address] [place], [place] [address]Dr. Yilan ChangPROF 14(COMP METB)on 04-40-4166Ofbzeuz [Mass/Vol]2.7 g/dLCritically low3.4-5.0The [facility] CenterComment on above:Performed By: #### CMP ####[facility] Gqotiafaig[address] [place], [place] [address]Dr. Yilan ChangAlbumin/Globulin [Mass ratio]0.9 {ratio}NormalThe [facility] Comment on above:Performed By: #### CMP ####[facility] Qsbqfozjqf[address] [place], [place] [address]Dr.Yilan ChangALP [Catalytic activity/Vol] 113 U/EMxlghr46-444Nzs [facility] [place] [facility] CenterComment on above:Performed By: #### CMP ####[facility] Zykwlsxckr77[address] [place], [place] [address]Dr. Yilan ChangALT [Catalytic activity/Vol]20 U/ACrupgi92-73Res [facility] Comment on above:Performed By: #### CMP ####[facility] Sjreclolov[address] [place], [place] [address]Dr.Yilan ChangAnion gap [Moles/Vol]11.1 mmol/LNormalThe [facility] [place] [facility] CenterComment on above:Performed By: #### CMP ####[facility] Fdrkesyksw8190[address] [place], [place] [address]Dr. Yilan ChangAST [Catalytic activity/Vol]19 U/QEqkrir38-21Hoq [facility] Comment on above:Performed By: #### CMP ####[facility] Pjsixmczfx6935[address] [place], [place] [address]Dr.Yilan ChangBilirubin [Mass/Vol]0.2 mg/dL Normal0.2-1.0The [facility] [place] [facility] CenterComment on above:Performed By: #### CMP ####[facility] Osolbfpmns7888[address] [place], [place] [address]Dr. Yilan ChangCalcium [Mass/Vol]8.3 mg/dLCritically low8.5-10.1The [facility] [place] [facility] CenterComment on above:Performed By: #### CMP ####[facility] [place] [facility] Jvueftroxk[address] [place] [id number].Yilan ChangChloride [Moles/Vol]104 mmol/GAaalcm59-225Jov [facility] [place] [facility] CenterComment on above:Performed By: #### CMP ####[facility] Tfjwibhqrs33[address] [place], [place] [address]Dr.Yilan ChangCO2 [Moles/Vol]25.3 mmol/ZGobxpk39.0-32.0The [facility] [place] [facility] CenterComment on above:Performed By: #### CMP ####[facility] Tdnnzatahe5566[address] [place], [place] [address]Dr.Yilan ChangCreatinine [Mass/Vol]1.33 mg/dLCritically high0.55-1.02The [facility] [place] [facility] CenterComment on above:Performed By: #### CMP ####[facility] Xmsnupjuun4810[address] [place], [place] [address]Dr.Yilan ChangEGFR-AF MVVFFDTK15 mL/min/1.73m2 Critically low>=60The [facility] [place] [facility] CenterComment on above:Performed By: #### CMP ####[facility] Quodsofyrv6428[address] [place], [place] [address]Dr. Yilan ChangEGFR-NON AF OYBPIHKO10 mL/min/1.16y0Ukvprjywdh low>=60The [facility] [place] [facility] CenterComment on above:Performed By: #### CMP ####[facility] Xzdofrqkls8[address] [place], [place] [address]Dr.Yilan ChangGlobulin (S) [Mass/Vol]3.1 g/dLNormalThe [facility] [place] [facility] CenterComment on above:Performed By: #### CMP ####[facility] Ufmzyqshlh[address] [place], [place] [address]Dr.Yilan ChangGlucose [Mass/Vol]88 mg/xCTpffgj52-045Fyb [facility] Comment on above:Performed By: #### CMP ####[facility] Fbsgyvuvjf0416[address] [place], [place] [address]Dr.Yilan ChangPotassium [Moles/Vol]5.4 mmol/LCritically high3.5-5.1The [facility] [place] [facility] CenterComment on above:Performed By: #### CMP ####[facility] Vvxrcjgxiu85[address] [place] [address]Dr.Yilan ChangProtein [Mass/Vol]5.8 g/dLCritically low6.4-8.2The [facility] [place] [facility] CenterComment on above:Performed By: #### CMP ####[facility] Zchyrjfatp8540[address] [place], [place] [address]Dr.Yilan ChangSodium [Moles/Vol]135 mmol/LCritically gog403-048Hpk [facility] [place] [facility] CenterComment on above: Performed By: #### CMP ####[facility] Fdsfiuvlqg9657[address] [place], [place] [address]Dr.Yilan ChangUrea nitrogen [Mass/Vol]38.0 mg/dL Critically high7.0-18.0The [facility] [place] [facility] CenterComment on above:Performed By: #### CMP ####[facility] Igxpvmcnod8888[address] [place], [place] [address]Dr. Yilan ChangUrea nitrogen/Creatinine [Mass ratio]28.6 mg/mgNormalThe [facility] [place] [facility] CenterComment on above:Performed By: #### CMP ####[facility] Wqnwpvblvi9548[address] [place], [place] [address]Dr.Selenalan ChangOSMOLALITYon 33-76-6402Dtmvhcxxzs [Osmolality]284 mosm/tiXaibdl201-152Tst [facility] Comment on above:Performed By: #### OSMO ####[facility] Foygrbnnzt3269[address] [place], [place] [address]Dr. Selenalan ChangCBC AUTO DIFFon 04-14-2022 BASO #0.0 103/ulNormal0.0-0.1The [facility] [place] [facility] CenterComment on above:Performed By: #### CBC ####[facility] Kopkegzvqr996[address] [place], [place] [address]Dr.Yilan ChangBasophils/100 WBC (Bld)0.5 %Normal0.2-2.0The [facility] [place] [facility] CenterComment on above:Performed By: #### CBC ####[facility] Myqjrfuqug0588[address] [place], [place] [address]Dr.Yilan ChangEO #0.3 103/ul Normal0.0-0.7The [facility] [place] [facility] CenterComment on above:Performed By: #### CBC ####[facility] Njnicpguxa7908[address] [place], [place] [address]Dr. Yilan ChangEosinophils/100 WBC (Bld)3.6 %Normal0.9-7.0The [facility] Comment on above:Performed By: #### CBC ####[facility] Lxpzqkzzkp6794[address] [place], [place] [address]Dr.Yilan ChangErythrocyte distribution width (RBC) [Ratio]13.4 %Ajbbeu57.0-15.0The [facility] [place] [facility] CenterComment on above: Performed By: #### CBC ####[facility] Vbbtklykek2340[address] [place], [place] [address]Dr.Yilan ChangHematocrit (Bld) [Volume fraction]30.6 % Critically low36.0-48.0The [facility] [place] [facility] CenterComment on above:Performed By: #### CBC ####[facility] Vrwoowbfuc2507[address] [place], [place] [address]Dr. Airam ChangHemoglobin (Bld) [Mass/Vol]9.7 g/dLCritically low12.0-16.0The [facility] [place] [facility] CenterComment on above:Performed By: #### CBC ####[facility] Buxthutmtg224[address] [place], [place] [address]Dr.Yilan ChangIG #0.08 10e3/ulCritically high0.00-0.03The [facility] [place] [facility] CenterComment on above:Performed By: #### CBC ####[facility] Ueldsjdorj5[address] [place], [place] [address]Dr.Yilan ChangIG %0.9 %Critically high0.0-0.5The [facility] HospitalComment on above:Performed By: #### CBC ####[facility] Kwxhjbwvcy9[address] [place], [place] [address]Dr.Yilan ChangLYMPH #2.1 103/ulNormal1.2-3.8The [facility] [place] [facility] CenterComment on above:Performed By: #### CBC ####[facility] Lsxdwkkgej[address] [place] [address]Dr.Airam TripathiLymphocytes/100 WBC (Bld)24.2 %Jupatz90.5-60.0The [facility] [place] [facility] CenterComment on above:Performed By: #### CBC ####[facility] Epzpotemip5149[address] [place], [place] [address]Dr.Airam TripathiMANUAL DIFF REQNONormalThe [facility] [place] [facility] CenterComment on above:Performed By: #### CBC ####[facility] Lpznitowub5306[address] [place], [place] [address]Dr.Airam TripathiH (RBC) [Entitic mass]30.4 pgNormal 26.7-34.0The [facility] [place] [facility] CenterComment on above:Performed By: #### CBC ####[facility] Uukfrgjucd6345[address] [place], [place] [address]Dr. Airam TripathiHC (RBC) [Mass/Vol]31.7 g/iWPzmueg33.9-35.2The [facility] Comment on above:Performed By: #### CBC ####[facility] Gtwtvwvcgn3877[address] [place], [place] [address]Dr.Airam TripathiMCV (RBC) [Entitic vol]95.9 fL Xqaehw39.0-99.0The [facility] [place] [facility] CenterComment on above:Performed By: #### CBC ####[facility] Uvagxowirx[address] [place], [place] [address]Dr. Airam TripathiMONO #0.5 103/ulNormal0.3-0.8The [facility] [place] [facility] CenterComment on above: Performed By: #### CBC ####[facility] Fwkmvyvjyk2349[address] [place], [place] [address]Dr.Airam ChangMonocytes/100 WBC (Bld)6.0 %Normal 1.7-12.0The [facility] [place] [facility] CenterComment on above:Performed By: #### CBC ####[facility] Qepbcklehm6536[address] [place], [place] [address]Dr. Airam TripathiNEUT #5.6 103/ulNormal1.4-6.5The [facility] [place] [facility] CenterComment on above: Performed By: #### CBC ####[facility] Lngtmntedg[address] [place] [address]Dr.Airam TripathiNeutrophils/100 WBC (Bld)64.8 %Normal 43.0-75.0The [facility] [place] [facility] CenterComment on above:Performed By: #### CBC ####[facility] Gpxsrcfepf1[address] [place] [address]Dr. Selenaneil DeucePlatelet mean volume (Bld) [Entitic vol]9.2 fLCritically low9.5-13.5 The [facility] [place] [facility] CenterComment on above:Performed By: #### CBC ####[facility] Ocozpofdsd6027[address] [place], [place] [address]Dr.Airam TripathiPLT296 103/aeUqbisi136-739Djw [facility] [place] [facility] CenterComment on above:Performed By: #### CBC ####[facility] Lihvbdmbwf3525[address] [place], [place] [address]Dr. Airam TripathiRBC3.19 106/ulCritically low4.20-5.40The [facility] [place] [facility] CenterComment on above:Performed By: #### CBC ####[facility] Utjyiyhwwx4097[address] [place], [place] [address]Dr.Airam TripathiWBC8.6 103/ulNormal4.0-11.0The [facility] [place] [facility] CenterComment on above:Performed By: #### CBC ####[facility] Rthsiavyuc[address] [place], [place] [address]Dr.Airam TripathiPROF 14(COMP METB)on 15-78-1187Wyxyhbq [Mass/Vol]3.2 g/dLCritically low3.4-5.0The [facility] [place] [facility] CenterComment on above:Performed By: #### CMP ####[facility] Sxffhkkfem2574[address] [place], [place] [address]Dr.Airam Tripathi Albumin/Globulin [Mass ratio]1.0 {ratio}NormalThe [facility] [place] [facility] CenterCombaraga county memorial hospital on above:Performed By: #### CMP ####[facility] Jljlrwktjt4199[address] [place], [place] [address]Dr.Airam TripathiALP [Catalytic activity/Vol]126 U/L Critically vpzn88-765Mbo [facility] [place] [facility] CenterComment on above:Performed By: #### CMP ####[facility] [address]yz[address] [place] [id number]. Yilan ChangALT [Catalytic activity/Vol]27 U/GDbmctq90-32Cny [facility] Comment on above:Performed By: #### CMP ####[facility] Lanceqxdui[address] [place] [id number].Yilan ChangAnion gap [Moles/Vol]9.6 mmol/LNormalThe [facility] [place] [facility] CenterComment on above:Performed By: #### CMP ####[facility] Nrlkikwbeg[address] [place] [address]Dr. Yilan ChangAST [Catalytic activity/Vol]25 U/EWclcjq53-74Zoy [facility] Comment on above:Performed By: #### CMP ####[facility] Pkeydjloiq47[address] [place] [address]Dr.Yilan ChangBilirubin [Mass/Vol]0.3 mg/dL Normal0.2-1.0The [facility] [place] [facility] CenterComment on above:Performed By: #### CMP ####[facility] Gcusutscov[address] [place], [place] [address]Dr. Yilan ChangCalcium [Mass/Vol]8.1 mg/dLCritically low8.5-10.1The [facility] [place] [facility] CenterComment on above:Performed By: #### CMP ####[facility] Ooccywgwxf[address] [place] [address]Dr.Yilan ChangChloride [Moles/Vol]100 mmol/UIgxrvw12-956Xne [facility] [place] [facility] CenterComment on above:Performed By: #### CMP ####[facility] Xpaqvqrgya37[address] [place] [address]Dr.Yilan ChangCO2 [Moles/Vol]26.5 mmol/NEvjbgx88.0-32.0The [facility] [place] [facility] CenterComment on above:Performed By: #### CMP ####[facility] Rnrqaxyrmy5[address] [place] [address]Dr.Yilan ChangCreatinine [Mass/Vol]1.52 mg/dLCritically high0.55-1.02The [facility] [place] [facility] CenterComment on above:Performed By: #### CMP ####[facility] Vcylyrgsrp4[address] [place] [address]Dr.Yilan ChangEGFR-AF JLZSAERF23 mL/min/1.73m2 Critically low>=60The [facility] [place] [facility] CenterComment on above:Performed By: #### CMP ####[facility] Tmtknutcro9[address] [place], [place] [address]Dr. Yilan ChangEGFR-NON AF GRTIQICM76 mL/min/1.24l8Phppblagyu low>=60The [facility] [place] [facility] CenterComment on above:Performed By: #### CMP ####[facility] Bmemuikree2557[address] [place], [place] [address]Dr.Yilan ChangGlobulin (S) [Mass/Vol]3.3 g/dLNormalThe [facility] [place] [facility] CenterComment on above:Performed By: #### CMP ####[facility] Frpbhhcbll032[address] [place], [place] [address]Dr.Yilan ChangGlucose [Mass/Vol]75 mg/nYEzniej42-280Joe [facility] Comment on above:Performed By: #### CMP ####[facility] Nmpirmhahj393[address] [place], [place] [address]Dr.Yilan ChangPotassium [Moles/Vol]4.1 mmol/LNormal3.5-5.1The [facility] [place] [facility] CenterComment on above:Performed By: #### CMP ####[facility] Zvcjckylmz4706[address] [place], [place] [address]Dr. Yilan ChangProtein [Mass/Vol]6.5 g/dLNormal6.4-8.2The [facility] [place] [facility] CenterComment on above:Performed By: #### CMP ####[facility] Rtlsxiievg7401[address] [place], [place] [address]Dr.Yilan ChangSodium [Moles/Vol]132 mmol/LCritically crm302-284Qdx [facility] [place] [facility] CenterComment on above:Performed By: #### CMP ####[facility] Zdvggzzltq2678[address] [place], [place] [address]Dr. Yilan ChangUrea nitrogen [Mass/Vol]40.0 mg/dLCritically high7.0-18.0The [facility] [place] [facility] CenterComment on above:Performed By: #### CMP ####[facility] Gbunloglci0590[address] [place], [place] [address]Dr.Selenaneil DeuceUrea nitrogen/Creatinine [Mass ratio]26.3 mg/mgNormalThe [facility] [place] [facility] CenterComment on above:Performed By: #### CMP ####[facility] Ttnfwvqirl0917[address] [place], [place] [address]Dr.Airam TripathiOSMOLALITYon 56-46-0144Eyiozeuywt [Osmolality]280 mosm/jdToxpkq760-076Qqu [facility] [place] [facility] CenterComment on above: Performed By: #### OSMO ####[facility] Gvjtbiqygh002[address] [place], [place] [address]Dr. Selenaneil DeucePTH INTACTon 20-28-5565GJJ, Iriebb85 pg/mLCritically xipc56-44Nrz [facility] [place] [facility] CenterComment on above:Performed By: #### PTHINT ####[facility] Tarrooxpor11[address] [place], [place] [address]Dr. Airam DeuceCBC W MANUAL DIFFon 75-05-1571KAWLKUVR LYMPH #NormalThe [facility] [place] [facility] CenterComment on above:Performed By: #### CBCMAN ####[facility] Sbaosyvwai[address] [place], [place] [address]Dr. Selenaneil Tripathi ATYPICAL LYMPH %NormalThe [facility] [place] [facility] CenterComment on above:Performed By: #### CBCMAN ####[facility] Dxlrrthbei0066[address] [place], [place] [address]Dr. Airam TripathiBAND #Normal0.0-0.3The [facility] [place] [facility] CenterComment on above: Performed By: #### CBCMAN ####[facility] Tobljdqxpj6014[address] [place], [place] [address]Dr. Airam TripathiBAND %Normal0-5The [facility] on above:Performed By: #### CBCMAN ####[facility] Fzuormlzze7[address] [place], [place] [address]Dr. Airam TripathiBASOM #0.00 103/ulNormal 0.00-0.10The [facility] [place] [facility] CenterComment on above:Performed By: #### CBCMAN ####[facility] Kftgvwpqms[address] [place] [address]Dr. Yilan ChangBASOM %0.0 %Critically low0.2-2.0The [facility] [place] [facility] CenterComment on above:Performed By: #### CBCGERALDINE ####[facility] Comuupndly[address] [place] [address]Dr. Yilan ChangBLAST #NormalThe [facility] Comment on above:Performed By: #### CBCGERALDINE ####[facility] Kdxoxsqspf5[address] [place] [address]Dr. Yilan ChangBLAST %NormalThe [facility] [place] [facility] CenterComment on above:Performed By: #### CBCGERALDINE ####[facility] Leyeggicba9435[address] [place], [place] [address]Dr. Yilan ChangCORRECTED WBC Normal4.0-11.0[facility] HospitalComment on above:Performed By: #### CBCGERALDINE ####[facility] Lavemrfods8976[address] [place], [place] [address]Dr. Yilan ChangEOS #0.00 103/ulNormal0.00-0.70The [facility] [place] [facility] CenterComment on above: Performed By: #### CBCGERALDINE ####[facility] Nrvydtkmmu4366[address] [place], [place] [address]Dr. Yilan ChangEOS%0.0 %Critically low0.9-7.0The [facility] [place] [facility] CenterComment on above:Performed By: #### CBCGERALDINE ####[facility] Jnmxgzmfam[address] [place], [place] [address]Dr. Yilan ChangHCT 29.7 %Critically low36.0-48.0The [facility] [place] [facility] CenterComment on above:Performed By: #### CBCGERALDINE ####[facility] Efjvhtkxas04[address] [place], [place] [address]Dr. Yilan ChangHGB9.5 g/dlCritically low12.0-16.0The [facility] Comment on above:Performed By: #### CBCGERALDINE ####[facility] Ymoqvcpkew1520[address] [place], [place] [address]Dr. Yilan ChangLYMPHM #0.42 103/ulCritically low1.20-3.80The [facility] HospitalComment on above:Performed By: #### CBCGERALDINE ####[facility] Qcmivggbdw9[address] [place] [address]Dr. Airam TripathiLYMPHM%7.0 %Critically low20.5-60.0The [facility] HospitalComment on above:Performed By: #### CBCGERALDINE ####[facility] Sulwlvmtmu1263[address] [place], [place] [address]Dr. Airam TripathiMCH30.9 skPgokdi67.7-34.0The [facility] [place] [facility] CenterComment on above:Performed By: #### CBCGERALDINE ####[facility] Opmosfffrf0733[address] [place], [place] [address]Dr. Airam TripathiMCHC32.0 g/dl Ezrmaw33.9-35.2The [facility] [place] [facility] CenterComment on above:Performed By: #### CBCGERALDINE ####[facility] Onjblfgarl2966[address] [place], [place] [address]Dr. Airam TripathiMCV96.7 zBFbchsz31.0-99.0The [facility] [place] [facility] CenterComment on above: Performed By: #### CBCGERALDINE ####[facility] Huubtxzpuf9[address] [place], [place] [address]Dr. Airam ChangMETAMYELOCYTE #NormalThe [facility] [place] [facility] CenterCombaraga county memorial hospital on above:Performed By: #### CBCMAN ####[facility] Ykpvorevsd[address] [place], [place] [address]Dr. Airam ChangMETAMYELOCYTE %NormalThe [facility] HospitalComment on above:Performed By: #### CBCMAN ####[facility] Yuzrulxqmj17[address] [place], [place] [address]Dr. Airam TripathiMONOM#0.36 103/ulNormal0.30-0.80The [facility] [place] [facility] CenterComment on above:Performed By: #### CBCMAN ####[facility] Rxsdfpqvtk3857[address] [place], [place] [address]Dr. Airam TripathiMONOM%6.0 %Normal1.7-12.0The [facility] HospitalComment on above:Performed By: #### CBCGERALDINE ####[facility] Hpvukemmot[address] [place] [id number]. Yilan ChangMPV9.5 fL Normal9.5-13.5The [facility] HospitalComment on above:Performed By: #### CBCGERALDINE ####[facility] Ybsnjcpslx9[address] [place] [id number]. Yilan ChangMYELOCYTE #NormalThe [facility] HospitalComment on above:Performed By: #### CBCGERALDINE ####[facility] Yzluhdwfaq90[address] [place] [address]Dr. Yilan ChangMYELOCYTE %NormalThe [facility] HospitalComment on above: Performed By: #### CBCGERALDINE ####[facility] Cqrgyggebp5[address] [place] [address]Dr. Yilan ChangNRBCNormalThe [facility] HospitalComment on above:Performed By: #### CBCGERALDINE ####[facility] Cwrzcwzrfg57[address] [place], [place] [address]Dr. Yilan BgeybIGL769 103/loAapjbv624-411Ibu [facility] HospitalComment on above:Performed By: #### CBCGERALDINE ####[facility] Gwhpkqljsc10[address] [place], [place] [address]Dr. Selenalan ChangRBC 3.07 106/ulCritically low4.20-5.40The [facility] [place] [facility] CenterComment on above: Performed By: #### CBCGERALDINE ####[facility] Bgnxvhzaic[address] [place], [place] [address]Dr. Yilan UyfywBVP66.6 %Nfzgoc01.0-15.0The [facility] HospitalComment on above:Performed By: #### CBCGERALDINE ####[facility] Znnsemrcsx[address] [place], [place] [address]Dr. Yilan ChangSEG #5.22 103/ulNormal1.40-6.50The [facility] HospitalComment on above:Performed By: #### CBCGERALDINE ####[facility] Wxzhogebyp[address] [place], [place] [address]Dr. Yilan ChangSEG %87.0 %Critically high43.0-75.0The [facility] Comment on above:Performed By: #### CBCMAN ####[facility] Edqwrzekuw0086 [place], [place] [address]Vd. Yilan ChangWBC6.0 103/ulNormal4.0-11.0 The [facility] [place] [facility] CenterComment on above:Performed By: #### CBCMAN ####[facility] Hluzqnyfts06[address] [place] [address]Dr. Yilan ChangFREE THYROXINE INDEX T7on 71-49-7707LZT7.80Tzfmlm4.30-4.50The [facility] Comment on above:Performed By: #### T7, TSH, CMP ####[facility] Wqyadnshpq[address] [place], [place] [id number]. Selenaneil WrrqkH8M36.0 %Normal 30.0-39.0The [facility] [place] [facility] CenterComment on above:Performed By: #### T7, TSH, CMP ####[facility] F[address]nyjksnh[address] [place], [place] [id number]. Airam ChangT4 [Mass/Vol]4.90 ug/dLNormal4.80-13.90The [facility] [place] [facility] CenterComment on above:Performed By: #### T7, TSH, CMP ####[facility] Ymsxgwfgwr3936 [place], [place]Dr. Yilan ChangPROF 14(COMP METB)on 36-54-6798Yhhliqk [Mass/Vol]3.0 g/dLCritically low3.4-5.0The [facility] Comment on above:Performed By: #### T7, TSH, CMP ####[facility] Xtbveqjzzc2816 [place], [place]Dr. Airam Tripathi Albumin/Globulin [Mass ratio]1.0 {ratio}NormalThe [facility] [place] [facility] CenterComment on above:Performed By: #### T7, TSH, CMP ####[facility] Msrotidjel6105 [place], [place]Dr. Airam ChangALP [Catalytic activity/Vol]106 U/L Znobqb64-075Seg [facility] [place] [facility] CenterComment on above:Performed By: #### T7, TSH, CMP ####[facility] Scdkagxfer[address] [place] [id number]. Yilan ChangALT [Catalytic activity/Vol]20 U/FOykvgw21-64Ran [facility] Comment on above:Performed By: #### T7, TSH, CMP ####[facility] Rmkvkaawvr47[address] [place] [id number]. Yilan ChangAnion gap [Moles/Vol]10.8 mmol/LNormalThe [facility] [place] [facility] CenterComment on above:Performed By: #### T7, TSH, CMP ####[facility] Tdwfphnmbx[address] [place] [address]Dr. Yilan ChangAST [Catalytic activity/Vol]19 U/UPpjezx32-48Yxn [facility] [place] [facility] CenterComment on above:Performed By: #### T7, TSH, CMP ####[facility] Rsvsqtigno[address] [place], [place] [address]Dr. Yilan Tripathi Bilirubin [Mass/Vol]0.3 mg/dLNormal0.2-1.0The [facility] [place] [facility] CenterComment on above: Performed By: #### T7, TSH, CMP ####[facility] Eytzloixuv[address] [place], [place] [address]Dr. Yilan ChangCalcium [Mass/Vol]8.0 mg/dLCritically low8.5-10.1The [facility] [place] [facility] CenterComment on above:Performed By: #### T7, TSH, CMP ####[facility] Phojfmayqk[address] [place], [place] [address]Dr. Yilan ChangChloride [Moles/Vol]100 mmol/MGhnbyx94-603Mal [facility] Comment on above:Performed By: #### T7, TSH, CMP ####[facility] Hadnjkcwnl[address] [place], [place] [address]Dr. Yilan ChangCO2 [Moles/Vol] 24.3 mmol/WUldcwq49.0-32.0The [facility] [place] [facility] CenterComment on above:Performed By: #### T7, TSH, CMP ####[facility] Ourzxafzwt[address] [place], [place] [address]Dr. Yilan ChangCreatinine [Mass/Vol]1.12 mg/dLCritically high0.55-1.02 The [facility] [place] [facility] CenterComment on above:Performed By: #### T7, TSH, CMP ####[facility] Dsnlnfjccg0719 [place], [place]Dr. Yilan ChangEGFR-AF RKXMEMMI79 mL/min/1.43n2Lubuzl>=60The [facility] [place] [facility] Comment on above:Performed By: #### T7, TSH, CMP ####[facility] Qslykvamhx[address] [place], [place] [id number]. Yilan ChangEGFR-NON AF QMCBFXWA60 mL/min/1.34z0Qnhbpnxomk low>=60The [facility] [place] [facility] CenterComment on above: Performed By: #### T7, TSH, CMP ####[facility] Zwqubeoeyj75[address] [place], [place] [id number]. Airam ChangGlobulin (S) [Mass/Vol]3.0 g/dLNormalThe [facility] [place] [facility] CenterComment on above:Performed By: #### T7, TSH, CMP ####[facility] [place] [facility] Enginkdbdg[address] [place], [place] [id number]. Airam Tripathi Glucose [Mass/Vol]76 mg/fFWplmzz35-069Efr [facility] [place] [facility] CenterComment on above: Performed By: #### T7, TSH, CMP ####[facility] Ewyrjrnxsr[address] [place], [place] [id number]. Airam ChangPotassium [Moles/Vol]4.1 mmol/LNormal 3.5-5.1The [facility] CenterComment on above:Performed By: #### T7, TSH, CMP ####[facility] Qbbxbnivhj[address] [place], [place] [id number]. Yilan ChangProtein [Mass/Vol]6.0 g/dLCritically low6.4-8.2The [facility] Comment on above:Performed By: #### T7, TSH, CMP ####[facility] Cweexeobkh[address] [place], [place] [id number]. Yilan ChangSodium [Moles/Vol]131 mmol/LCritically nle662-829Xhn [facility] CenterComment on above: Performed By: #### T7, TSH, CMP ####[facility] Qpmcmfrtwh[address] [place], [place] [id number]. Selenalan ChangUrea nitrogen [Mass/Vol]32.0 mg/dL Critically high7.0-18.0The [facility] CenterComment on above:Performed By: #### T7, TSH, CMP ####[facility] Uixlkdibir[address] [place], [place] [address]Dr. Yilan ChangUrea nitrogen/Creatinine [Mass ratio]28.6 mg/mgNormalThe [facility]ger HospitalComment on above:Performed By: #### T7, TSH, CMP ####[facility] Tfcrszrbre[address] [place], [place] [address]Dr. Airam ChangTSHon 65-91-9870JXV7.027 uIU/mLCritically low0.358-3.740Park[facility] Bryan HospitalComment on above:Performed By: #### T7, TSH, CMP ####[facility] Mhakqpwntr[address] [place], [place] [address]Dr. Airam TripathiUA RANDOMon 04-08-2022 Bilirubin Ql (U)NegativeNormalNEGATIVEParkview Health Bryan HospitalComment on above: Performed By: #### UA ####[facility] Azrqdbpyrf9301[address] [place], [place] [address]Dr. Yilan ChangClarity (U)CLEARNormalCLEARBellevue Hospital HospitalComment on above:Performed By: #### UA ####[facility] Skwtpviovw5[address] [place], [place] [address]Dr. Selenalan ChangColor (U)LT. YELLOWNormalYELLOWParkview Health Bryan HospitalComment on above:Performed By: #### UA ####[facility] Htavvcjowa99[address] [place], [place] [address]Dr. Y grayson ChangGlucose Ql (U)NegativeNormalNEGATIVEParkview Health Bryan HospitalComment on above:Performed By: #### UA ####[facility] Csxkjtbxpa86[address] [place], [place] [address]Dr. Yilan ChangHemoglobin Ql (U)NegativeNormalNEGATIVE The [facility] HospitalComment on above:Performed By: #### UA ####[facility] Eys[address]egy[address] [place] [address]Dr. Airam Tripathi Ketones Ql (U)NegativeNormalNEGATIVEThe [facility] HospitalComment on above: Performed By: #### UA ####[facility] Zjcymsbqqn[address] [place], [place] [address]Dr. Selenaneil ChangLEUKOCYTESNegativeNormalNEGATIVEThe [facility] HospitalComment on above:Performed By: #### UA ####[facility] Nuppzqyoxf[address] [place], [place] [address]Dr. Selenaneil ChangNitrite Ql (U) NegativeNormalNEGATIVEThe [facility] CenterComment on above:Performed By: #### UA ####[facility] Juaohuklvd[address] [place], [place] [address]Dr. Airam ChangpH (U)6.0 [pH]Normal5-9The [facility] CenterComment on above: Performed By: #### UA ####[facility] Ztrladaikx9[address] [place], [place] [address]Dr. Airam TripathiSPEC GRAVITY1.031Etnpkc5.005-<=1.025The [facility] CenterComment on above:Performed By: #### UA ####[facility] Swhjniunah[address] [place], [place] [address]Dr. Airam TripathiUA PROTEIN NegativeNormalNEGATIVE/ TRACEThe [facility] CenterComment on above:Performed By: #### UA ####[facility] Jkvgijaqde75[address] [place], [place] [address]Dr. Airam ChangUrobilinogen Qn (U)0.2 {Ligia'U}/dLNormal0.2 - 1.0The [facility] CenterComment on above:Performed By: #### UA ####[facility] Khzxfaskjj3983[address] [place], [place] [address]Dr. Airam TripathiURINE T PROTEIN CREAT RATIOon 39-25-0030YA PROT CREAT RAT0.32NormalThe [facility] Comment on above:Performed By: #### URTPCR ####[facility] [address]qu[address]zr[address] [place] [address]Dr. Selenaneil DeuceUR TOTAL PROTEIN<6.0Normal <=12.0The [facility] CenterComment on above:Performed By: #### URTPCR ####[facility] Trqzctxbsn[address] [place] [address]Dr. Selenaneil DeuceURINE CREAT18.75 mg/dLCritically low20.00-300.00The [facility] Comment on above:Performed By: #### URTPCR ####[facility] Hqqmwgfosn6[address] [place] [address]Dr. Airam TripathiFERRITINon 12-85-0430Vzuxtzgy [Mass/Vol]99.0 ng/mLNormal8.0-252.0The [facility] CenterComment on above: Performed By: #### FETWALDO VALADEZ, FERR ####[facility] Eikgnishiq[address] [place], [place] [address]Dr. Airam TripathiIRON AND TIBCon 04-06-2022% VRZMZUTGVG55.4 %NormalThe [facility] CenterComment on above:Performed By: #### FETLEONARDCMUNIRAAD, FERR ####[facility] Cpnipwxzgm[address] [place], [place] [address]Dr. Airam ChangIron [Mass/Vol]43.0 ug/dLCritically low 50.0-170.0The [facility] CenterComment on above:Performed By: #### FETIBC, VITAD, FERR ####[facility] Jghndnfdvv[address] [place], [place] [address]Dr. Airam TripathiTIBC AXQKVX720.0 ug/rLPsnzdc165.0-450.0The [facility] Comment on above:Performed By: #### FETIBC, VITAD, FERR ####[facility] Pevwkssapm8[address] [place], [place] [address]Dr. Airam ChangPROF 14(COMP METB)on 42-70-2805Qaqxikt [Mass/Vol]3.2 g/dLCritically low3.4-5.0The [facility] CenterComment on above:Performed By: #### CMP, URIC ####[facility] Qoj[address]ubjky[address] [place] [id number]. Airam Deuce Albumin/Globulin [Mass ratio]1.0 {ratio}NormalThe [facility] CenterCombaraga county memorial hospital on above:Performed By: #### CMP, URIC ####[facility] Caoydkkdre[address] [place] [address]Dr. Airam TripathiALP [Catalytic activity/Vol]118 U/LCritically hljw63-555Dcq [facility] CenterComment on above:Performed By: #### CMP, URIC ####[facility] Dtbqeangah[address] [place] [address]Dr. Airam TripathiALT [Catalytic activity/Vol]24 U/GXrbxjx38-96Vbw [facility] on above:Performed By: #### CMP, URIC ####[facility] Rwwskzzljr6[address] [place] [address]Dr. Airam ChangAnion gap [Moles/Vol]14.4 mmol/LNormalThe [facility] CenterComment on above:Performed By: #### CMP, URIC ####[facility] Asawnxuuxn[address] [place] [address]Dr. Airam ChangAST [Catalytic activity/Vol]21 U/IVbhdbe59-91Byu [facility] on above:Performed By: #### CMP, URIC ####[facility] Mlhpzuqfbs35[address] [place] [address]Dr. Airam Tripathi Bilirubin [Mass/Vol]0.3 mg/dLNormal0.2-1.0The [facility] Hospitalment on above: Performed By: #### CMP, URIC ####[facility] Ncttqnovgr[address] [place] [id number]. Airam TripathiCalcium [Mass/Vol]8.0 mg/dLCritically low8.5-10.1The [facility] Hospitalment on above:Performed By: #### CMP, URIC ####[facility] Elmioncqce[address] [place] [address]Dr. Airam ChangChloride [Moles/Vol]98 mmol/FLppmij35-973Ucg [facility] CenterComment on above:Performed By: #### CMP, URIC ####[facility] Ggnmxkipvu4436[address] [place], [place] [address]Dr. Yilan ChangCO2 [Moles/Vol]22.0 mmol/LNormal 21.0-32.0The [facility] HospitalComment on above:Performed By: #### CMP, URIC ####[facility] Tzeylxnswp67[address] [place], [place] [address]Dr. Yilan ChangCreatinine [Mass/Vol]1.86 mg/dLCritically high0.55-1.02The [facility] HospitalComment on above:Performed By: #### CMP, URIC ####[facility] Whijlflklc[address] [place], [place] [address]Dr. Yilan ChangEGFR-AF YROAAOJU85 mL/min/1.61t0Elgwlomvtm low>=60The [facility] CenterComment on above: Performed By: #### CMP, URIC ####[facility] Ojegbziqgn5[address] [place], [place] [address]Dr. Yilan ChangEGFR-NON AF BXDPMMKD25 mL/min/1.73m2 Critically low>=60The [facility] CenterComment on above:Performed By: #### CMP, URIC ####[facility] Vdvmhompdw[address] [place], [place] [address]Dr. Yilan ChangGlobulin (S) [Mass/Vol]3.1 g/dLNoGood Samaritan Hospital Comment on above:Performed By: #### CMP, URIC ####[facility] Titfudwdjw1490[address] [place], [place] [address]Dr. Yilan ChangGlucose [Mass/Vol]93 mg/fRPklnkc78-616Osy [facility] CenterComment on above:Performed By: #### CMP, URIC ####[facility] Oheqllxhic6[address] [place], [place] [address]Dr. Yilan ChangPotassium [Moles/Vol]4.4 mmol/LNormal 3.5-5.1The [facility] CenterComment on above:Performed By: #### CMP, URIC ####[facility] Xljronfdzr6178[address] [place], [place] [address]Dr. Airam ChangProtein [Mass/Vol]6.3 g/dLCritically low6.4-8.2[facility] Comment on above:Performed By: #### CMP, URIC ####[facility] Farvndirlp[address] [place] [address]Dr. Yilan ChangSodium [Moles/Vol]130 mmol/LCritically fsz333-797Acm [facility] CenterComment on above: Performed By: #### CMP, URIC ####[facility] V[address]irgkbrhm[address] [place] [address]Dr. Yilan ChangUrea nitrogen [Mass/Vol]49.0 mg/dL Critically high7.0-18.0The [facility] CenterComment on above:Performed By: #### CMP, URIC ####[facility] Otzodqrkig[address] [place] [address]Dr. Yilan ChangUrea nitrogen/Creatinine [Mass ratio]26.3 mg/mgNoGood Samaritan HospitalComment on above:Performed By: #### CMP, URIC ####[facility] Mvvdlsbfro[address] [place] [address]Dr. Yilan ChangURIC ACID SERUMon 29-04-9390Bbchh [Mass/Vol]6.5 mg/dLCritically high2.6-6.0The [facility] CenterComment on above:Performed By: #### CMP, URIC ####[facility] Otvcowjkph[address] [place] [address]Dr. Airam Tripathi VITAMIN D 25 OHon 85-90-6167RZF D 25-OH74.5 ng/mLNormalThe [facility] Comment on above:Performed By: #### FETIBC, VITAD, FERR ####[facility] [address]yhfmlhb[address] [place] [address]Dr. Yilan ChangVIT D RANGES SEE BELOWCleveland Clinic Hillcrest HospitalComment on above:Result Comment: <20 ng/mL Vit D deficient 20 - <30 ng/mL Vit D insufficient 30 - 100 ng/mL Vit D sufficient >100 ng/mL Potential ToxicityPerformed By: #### FETIBC, VITAD, FERR ####[facility] Yqzdag[address]vq[address] [place] [address]Dr. Selenaneil ChangOSMOLALITYon 42-19-1185Tidiakvnyb [Osmolality]284 mosm/kgNormal 275-295The [facility] CenterComment on above:Performed By: #### OSMO ####[facility] Wevsaghsap[address] [place], [place] [address]Dr. Airam TripathiCBC AUTO DIFFon 12-65-7653KTKQ #0.0 103/ulNormal0.0-0.1The [facility] CenterComment on above:Performed By: #### CBC ####[facility] Umbqhdqcee[address] [place], [place] [address]Dr.Airam TripathiBasophils/100 WBC (Bld)0.3 %Normal0.2-2.0The [facility] CenterComment on above:Performed By: #### CBC ####[facility] Cqcvoimgfz076[address] [place], [place] [address]Dr.Airam ChangEO #0.1 103/ulNormal0.0-0.7The [facility] CenterComment on above:Performed By: #### CBC ####[facility] Whrzfvqivk0676[address] [place], [place] [address]Dr.Airam ChangEosinophils/100 WBC (Bld)2.0 %Normal 0.9-7.0The [facility] CenterComment on above:Performed By: #### CBC ####[facility] Ggdyuwhutw3620[address] [place], [place] [address]Dr.Airam Tripathi Erythrocyte distribution width (RBC) [Ratio]13.5 %Hsdawi58.0-15.0The [facility] CenterComment on above:Performed By: #### CBC ####[facility] Mkmojxbsvf3837[address] [place], [place] [address]Dr.Airam TripathiHematocrit (Bld) [Volume fraction]32.5 %Critically low36.0-48.0The [facility] CenterComment on above:Performed By: #### CBC ####[facility] Rlwftrrevk4614[address] [place], [place] [address]Dr.Yilan ChangHemoglobin (Bld) [Mass/Vol]10.1 g/dL Critically low12.0-16.0The [facility] CenterComment on above:Performed By: #### CBC ####[facility] Iuhdoiqoou83[address] [place], [place] [address]DrKianna TripathiIG #0.03 10e3/ulNormal0.00-0.03The [facility] CenterComment on above: Performed By: #### CBC ####[facility] Ayozssmmko3873[address] [place], [place] [address]DrBroderick TripathiIG %0.4 %Normal0.0-0.5The [facility] CenterComment on above:Performed By: #### CBC ####[facility] Honciawmcq9828[address] [place], [place] [address]Dr.Airam TripathiLYMPH #1.6 103/ulNormal1.2-3.8The [facility] CenterComment on above:Performed By: #### CBC ####[facility] Yrwaybqjlb380[address] [place], [place] [address]Dr. Airam Tripathimphocytes/100 WBC (Bld)22.6 %Ehfbpk08.5-60.0The [facility] Comment on above:Performed By: #### CBC ####[facility] Aeeeanhhtv25[address] [place], [place] [address]Dr.Airam TripathiMANUAL DIFF REQNONormalThe [facility] CenterComment on above:Performed By: #### CBC ####[facility] Gytscuyuwe9266[address] [place], [place] [address]Dr.Airam TripathiST. LUKE'[facility] (RBC) [Entitic mass]30.5 lgHwhdns27.7-34.0The [facility] CenterComment on above: Performed By: #### CBC ####[facility] Hwfuxokbgx3732[address] [place], [place] [address]DrBroderick TripathiUPSTATE UNIV[facility] (RBC) [Mass/Vol]31.1 g/dLNormal 29.9-35.2The [facility] CenterComment on above:Performed By: #### CBC ####[facility] Evwjnfdtak9148[address] [place], [place] [address]Dr. Airam TripathiMCV (RBC) [Entitic vol]98.2 sMFjqkxk11.0-99.0The [facility] Comment on above:Performed By: #### CBC ####[facility] J[address]ucgnuhla[address] [place] [address]Dr.Airam TripathiMONO #0.5 103/ulNormal0.3-0.8 The [facility] CenterComment on above:Performed By: #### CBC ####[facility] Nqcwfljcpj5927[address] [place], [place] [address]Dr.Airam Tripathi Monocytes/100 WBC (Bld)7.3 %Normal1.7-12.0The [facility] CenterComment on above: Performed By: #### CBC ####[facility] Fkkdzcrmgs36[address] [place], [place] [address]Dr.Airam TripathiNEUT #4.7 103/ulNormal1.4-6.5The [facility] CenterComment on above:Performed By: #### CBC ####[facility] Rgyysoksnm5711[address] [place], [place] [address]Dr.Airam TripathiNeutrophils/100 WBC (Bld)67.4 %Vuozhx53.0-75.0The [facility] CenterComment on above:Performed By: #### CBC ####[facility] Elhjxqqryz5423[address] [place], [place] [address]Dr.Airam TripathiPlatelet mean volume (Bld) [Entitic vol]9.5 fLNormal9.5-13.5 The [facility] CenterComment on above:Performed By: #### CBC ####[facility] Pfhuzmvhfa280[address] [place], [place] [address]Dr.Airam QgjdlAPV610 103/mpXnbpgz877-886Ycs [facility] CenterComment on above:Performed By: #### CBC ####[facility] Tasxfazpnl169[address] [place], [place] [address]Dr. Airam TripathiRBC3.31 106/ulCritically low4.20-5.40The [facility] CenterComment on above:Performed By: #### CBC ####[facility] Ytymvbtcdt22[address] [place] [address]Dr.Airam ChangWBC7.0 103/ulNormal4.0-11.0The [facility] CenterComment on above:Performed By: #### CBC ####[facility] Ebmlebevuu4938[address] [place], [place] [address]Dr.Airam ChangPROF 14(COMP METB)on 24-07-1841Ywbohya [Mass/Vol]3.4 g/dLNormal3.4-5.0The [facility] Comment on above:Performed By: #### CMP ####[facility] Gxbrgalhwx[address] [place], [place] [address]Dr.Airam TripathiAlbumin/Globulin [Mass ratio] 1.1 {ratio}NormalThe [facility] CenterComment on above:Performed By: #### CMP ####[facility] Tazpzilgnv56[address] [place], [place] [address]Dr. Airam ChangALP [Catalytic activity/Vol]107 U/URwtqam88-795Adk [facility] Comment on above:Performed By: #### CMP ####[facility] Oxapzcwfyb7724[address] [place], [place] [address]Dr.Airam ChangALT [Catalytic activity/Vol]22 U/HWiughb38-42Dnw [facility] CenterComment on above:Performed By: #### CMP ####[facility] Iwmqkgxamk7207[address] [place], [place] [address]Dr. Airam TripathiAnion gap [Moles/Vol]6.8 mmol/LNormalThe [facility] CenterComment on above:Performed By: #### CMP ####[facility] Vwtgfofivm3178[address] [place], [place] [address]Dr.Airam ChangAST [Catalytic activity/Vol]23 U/LNormal 15-37The [facility] CenterComment on above:Performed By: #### CMP ####[facility] Ugyoowhrcl4527[address] [place], [place] [address]Dr.Airam Tripathi Bilirubin [Mass/Vol]0.2 mg/dLNormal0.2-1.0The [facility] CenterComment on above: Performed By: #### CMP ####[facility] Rjdjrdyxdc[address] [place] [id number].Yilan ChangCalcium [Mass/Vol]8.4 mg/dLCritically low8.5-10.1The [facility] CenterComment on above:Performed By: #### CMP ####[facility] Wwunxejdxk[address] [place] [address]Dr. Yilan ChangChloride [Moles/Vol]100 mmol/SDfhlof27-994Kdu [facility] Comment on above:Performed By: #### CMP ####[facility] Hkmqvfsyzw05[address] [place], [place] [address]Dr.Yilan ChangCO2 [Moles/Vol]29.9 mmol/L Hgldhy28.0-32.0The [facility] CenterComment on above:Performed By: #### CMP ####[facility] Uiscelvfec30[address] [place], [place] [address]Dr. Yilan ChangCreatinine [Mass/Vol]1.20 mg/dLCritically high0.55-1.02The [facility] CenterComment on above:Performed By: #### CMP ####[facility] Oiafxfgivk85[address] [place], [place] [address]Dr.Yilan ChangEGFR-AF BTJOQKNO22 mL/min/1.34t8Owncgobqal low>=60The [facility] CenterComment on above: Performed By: #### CMP ####[facility] Pdpsjkxpza24[address] [place], [place] [address]Dr.Yilan ChangEGFR-NON AF PAYEHPDQ79 mL/min/1.73m2 Critically low>=60The [facility] CenterComment on above:Performed By: #### CMP ####[facility] Phnyojvmxs8947[address] [place], [place] [address]Dr. Yilan ChangGlobulin (S) [Mass/Vol]3.0 g/dLNormalThe [facility] CenterComment on above:Performed By: #### CMP ####[facility] Hbrmtwonxc2533[address] [place], [place] [address]Dr.Yilan ChangGlucose [Mass/Vol]57 mg/dLCritically low 74-106The [facility] CenterComment on above:Performed By: #### CMP ####[facility] Tekxzaqrtv9[address] [place] [address]Dr.Airam Tripathi Potassium [Moles/Vol]3.7 mmol/LNormal3.5-5.1The [facility] CenterComment on above:Performed By: #### CMP ####[facility] Pgaxtbcrkm6159[address] [place], [place] [address]Dr.Airam TripathiProtein [Mass/Vol]6.4 g/dLNormal6.4-8.2 The [facility] CenterComment on above:Performed By: #### CMP ####[facility] Wzfbzocssy[address] [place], [place] [address]Dr.Airam TripathiSodium [Moles/Vol]133 mmol/LCritically fya274-981Itw [facility] CenterComment on above:Performed By: #### CMP ####[facility] Meiimxeetk242[address] [place], [place] [address]Dr.Airam TripathiUrea nitrogen [Mass/Vol]39.0 mg/dL Critically high7.0-18.0The [facility] CenterComment on above:Performed By: #### CMP ####[facility] Cuuffmiscg425[address] [place], [place] [address]Dr. Airam ChangUrea nitrogen/Creatinine [Mass ratio]32.5 mg/mgNormalThe [facility] CenterComment on above:Performed By: #### CMP ####[facility] Azybighent97[address] [place], [place] [address]Dr.Airam TripathiOSMOLALITYon 35-38-6404Yowoanepct [Osmolality]285 mosm/coYunury864-679Lfo [facility] Comment on above:Performed By: #### OSMO ####[facility] Ywrpzeubox[address] [place], [place] [address]Dr. Selenaneil DeuceCBC AUTO DIFFon 03-22-2022 BASO #0.0 103/ulNormal0.0-0.1The [facility] CenterComment on above:Performed By: #### CBC ####[facility] Llhyzltvio[address] [place], [place] [address]Dr.Yilan ChangBasophils/100 WBC (Bld)0.4 %Normal0.2-2.0The [facility] CenterComment on above:Performed By: #### CBC ####[facility] Drijsqmqqw40[address] [place] [address]Dr.Yilan ChangEO #0.2 103/ul Normal0.0-0.7The [facility] CenterComment on above:Performed By: #### CBC ####[facility] Koygjosfja5437[address] [place], [place] [address]Dr. Yilan ChangEosinophils/100 WBC (Bld)2.3 %Normal0.9-7.0The [facility] Comment on above:Performed By: #### CBC ####[facility] Xzbaeuidnx9109[address] [place], [place] [address]Dr.Yilan ChangErythrocyte distribution width (RBC) [Ratio]13.9 %Amsgjx60.0-15.0The [facility] CenterComment on above: Performed By: #### CBC ####[facility] Iozepwimad0[address] [place], [place] [address]Dr.Selenalan ChangHematocrit (Bld) [Volume fraction]32.6 % Critically low36.0-48.0The [facility] CenterComment on above:Performed By: #### CBC ####[facility] Zndegqbwum5177[address] [place], [place] [address]Dr. Selenalan ChangHemoglobin (Bld) [Mass/Vol]10.3 g/dLCritically low12.0-16.0The [facility] CenterComment on above:Performed By: #### CBC ####[facility] Apdtssbbav18[address] [place], [place] [address]Dr.Yilan ChangIG #0.11 10e3/ulCritically high0.00-0.03The [facility] CenterComment on above:Performed By: #### CBC ####[facility] Qzutecnwtz07[address] [place], [place] [address]Dr.Yilan ChangIG %1.4 %Critically high0.0-0.5The [facility] CenterComment on above:Performed By: #### CBC ####[facility] Hadhwhhlaw[address] [place] [address]Dr.Airam TripathiLYMPH #1.3 103/ulNormal1.2-3.8The [facility] CenterComment on above:Performed By: #### CBC ####[facility] Irmqfznwou95[address] [place] [address]Dr.Airam TripathiLymphocytes/100 WBC (Bld)15.9 %Critically low20.5-60.0The [facility] CenterComment on above: Performed By: #### CBC ####[facility] Ijxsswgxwx50[address] [place] [address]Dr.Airam TripathiMANUAL DIFF REQNONormalThe [facility] CenterComment on above:Performed By: #### CBC ####[facility] Eipytoemnq[address] [place], [place] [address]Dr.Airam TripathiMCH (RBC) [Entitic mass]30.7 axJxtyol71.7-34.0The [facility] CenterComment on above: Performed By: #### CBC ####[facility] Hrujbdncje8543[address] [place], [place] [address]Dr.Airam TripathiMCHC (RBC) [Mass/Vol]31.6 g/dLNormal 29.9-35.2The [facility] CenterComment on above:Performed By: #### CBC ####[facility] Wgjaxsfngc[address] [place], [place] [address]Dr. Airam TripathiMCV (RBC) [Entitic vol]97.0 qDQgfllm06.0-99.0The [facility] Comment on above:Performed By: #### CBC ####[facility] Hhcqkedmjf[address] [place], [place] [address]Dr.Airam TripathiMONO #0.6 103/ulNormal0.3-0.8 The [facility] CenterComment on above:Performed By: #### CBC ####[facility] Tyhckmivdf254[address] [place], [place] [address]Dr.Airam Tripathi Monocytes/100 WBC (Bld)6.9 %Normal1.7-12.0The [facility] HospitalComment on above: Performed By: #### CBC ####[facility] Atoqpjiiia[address] [place] [address]Dr.Airam TripathiNEUT #5.9 103/ulNormal1.4-6.5The [facility] CenterComment on above:Performed By: #### CBC ####[facility] Ijzjzjjsrr[address] [place], [place] [address]Dr.Airam TripathiNeutrophils/100 WBC (Bld)73.1 %Knubuw87.0-75.0The [facility] HospitalComment on above:Performed By: #### CBC ####[facility] Myhlmynmtq37[address] [place], [place] [address]Dr.Airam TripathiPlatelet mean volume (Bld) [Entitic vol]9.5 fLNormal9.5-13.5 The [facility] CenterComment on above:Performed By: #### CBC ####[facility] Ytxauejify5[address] [place], [place] [address]Dr.Airam TripathiPLT313 103/fsXbcnye116-129Xex [facility] CenterComment on above:Performed By: #### CBC ####[facility] Bmfokbgcqm0550[address] [place], [place] [address]Dr. Airam TripathiRBC3.36 106/ulCritically low4.20-5.40The [facility] Hospitalment on above:Performed By: #### CBC ####[facility] Yyuqvnqucn8439[address] [place], [place] [address]Dr.Airam TripathiWBC8.1 103/ulNormal4.0-11.0The [facility] HospitalComment on above:Performed By: #### CBC ####[facility] Whewuzssrs[address] [place], [place] [address]Dr.Airam TripathiPROF 14(COMP METB)on 81-86-9941Wqpnlgw [Mass/Vol]3.3 g/dLCritically low3.4-5.0The [facility] HospitalComment on above:Performed By: #### CMP ####[facility] Lbcythfnjb[address] [place], [place] [address]Dr.Yilan Tripathi Albumin/Globulin [Mass ratio]1.0 {ratio}NormalThe [facility] CenterComment on above:Performed By: #### CMP ####[facility] [address] [place] [address]Dr.Yineil ChangALP [Catalytic activity/Vol]113 U/L Veojql93-115Csk [facility] CenterComment on above:Performed By: #### CMP ####[facility] Pagpbpcgtw[address] [place] [address]Dr. Yineil ChangALT [Catalytic activity/Vol]21 U/NZkkwle91-37Ekk [facility] Comment on above:Performed By: #### CMP ####[facility] Kvbheakgda10[address] [place], [place] [address]Dr.Airam ChangAnion gap [Moles/Vol]12.2 mmol/LNormalThe [facility] CenterComment on above:Performed By: #### CMP ####[facility] Jhfzhvrnrm3199[address] [place], [place] [address]Dr. Yineil ChangAST [Catalytic activity/Vol]21 U/KKqpaai04-85Hez [facility] Comment on above:Performed By: #### CMP ####[facility] Hvhvxndigj[address] [place], [place] [address]Dr.Yineil ChangBilirubin [Mass/Vol]0.2 mg/dL Normal0.2-1.0The [facility] CenterComment on above:Performed By: #### CMP ####[facility] Mylkkyhcsw007[address] [place], [place] [address]Dr. Yineil ChangCalcium [Mass/Vol]8.4 mg/dLCritically low8.5-10.1The [facility] CenterComment on above:Performed By: #### CMP ####[facility] Vybbhycgcf2458[address] [place], [place] [address]Dr.Yilan ChangChloride [Moles/Vol]103 mmol/EMxqilq49-172Pbo [facility] CenterComment on above:Performed By: #### CMP ####[facility] Vjjeeqttqk[address] [place], [place] [address]Dr.Yilan ChangCO2 [Moles/Vol]24.4 mmol/SMutdkz34.0-32.0The [facility] CenterComment on above:Performed By: #### CMP ####[facility] Teovqkavla9116[address] [place], [place] [address]Dr.Yilan ChangCreatinine [Mass/Vol]1.11 mg/dLCritically high0.55-1.02The [facility] CenterComment on above:Performed By: #### CMP ####[facility] Knbxnecddd4198[address] [place], [place] [address]Dr.Yilan ChangEGFR-AF DJIBOUTIAN>60Normal>=60The [facility] CenterComment on above:Performed By: #### CMP ####[facility] Hkpnqdovnv7830[address] [place], [place] [address]Dr.Yilan ChangEGFR-NON AF MAVAJJJC92 mL/min/1.56e5Ukrakxmmra low>=60The [facility] CenterCombar[facility] on above: Performed By: #### CMP ####[facility] Omleyjjvqh3318[address] [place], [place] [address]Dr.Yilan ChangGlobulin (S) [Mass/Vol]3.2 g/dLNormalThe [facility] CenterComment on above:Performed By: #### CMP ####[facility] Qeusetrsxg3308[address] [place], [place] [address]Dr.Yilan ChangGlucose [Mass/Vol]84 mg/nIIphuss50-827JdnParkview Health Bryan HospitalCombaraga county memorial hospital on above:Performed By: #### CMP ####[facility] Uaajbjgqha6798[address] [place], [place] [address]Dr.Yilan ChangPotassium [Moles/Vol]4.6 mmol/LNormal3.5-5.1The [facility] CenterComment on above:Performed By: #### CMP ####[facility] Ygxhmrkold380[address] [place], [place] [address]Dr.Yilan ChangProtein [Mass/Vol]6.5 g/dLNormal6.4-8.2The [facility] CenterComment on above:Performed By: #### CMP ####[facility] Kbezmbqxip3246[address] [place], [place] [address]Dr.Yilan ChangSodium [Moles/Vol]135 mmol/LCritically cug006-703Jvu [facility] CenterComment on above:Performed By: #### CMP ####[facility] Xkqlwlsyra8588[address] [place], [place] [address]Dr.Airam ChangUrea nitrogen [Mass/Vol]39.0 mg/dLCritically high7.0-18.0The [facility] CenterComment on above:Performed By: #### CMP ####[facility] Dbophthtrl6437[address] [place], [place] [address]Dr.Selenalan ChangUrea nitrogen/Creatinine [Mass ratio] 35.1 mg/mgNormalThe [facility] CenterComment on above:Performed By: #### CMP ####[facility] Polwluwvts4208[address] [place], [place] [address]Dr. Airam ChangOSMOLALITYon 92-56-6410Mbsrhyzmtv [Osmolality]277 mosm/kgNormal 275-295The [facility] CenterCombaraga [facility] memorial hospital on above:Performed By: #### OSMO ####[facility] Fonjmbdnps5154[address] [place], [place] [address]Dr. Selenalan ChangCBC AUTO DIFFon 91-77-0664QWHJ #0.0 103/ulNormal0.0-0.1The [facility] CenterCombaraga [facility] memorial hospital on above:Performed By: #### CBC ####[facility] Nhrhtqiwbh950[address] [place], [place] [address]Dr.Selenalan ChangBasophils/100 WBC (Bld)0.4 %Normal0.2-2.0The [facility] CenterCombaraga [facility] memorial hospital on above:Performed By: #### CBC ####[facility] Xotmccklls185[address] [place], [place] [address]Dr.Yilan ChangEO #0.1 103/ulNormal0.0-0.7The [facility] CenterCombaraga [facility] memorial hospital on above:Performed By: #### CBC ####[facility] Jzpaafzctf869[address] [place], [place] [address]Dr.Selenalan ChangEosinophils/100 WBC (Bld)2.4 %Normal 0.9-7.0The [facility] CenterComment on above:Performed By: #### CBC ####[facility] [address]fgprb[address] [place] [address]Dr.Airam Tripathi Erythrocyte distribution width (RBC) [Ratio]13.9 %Vppsza19.0-15.0The [facility] CenterComment on above:Performed By: #### CBC ####[facility] Nzbhjcasoq9477[address] [place], [place] [address]Dr.Airam TripathiHematocrit (Bld) [Volume fraction]31.2 %Critically low36.0-48.0The [facility] HospitalComment on above:Performed By: #### CBC ####[facility] Zhpopwxnvg5495[address] [place], [place] [address]Dr.Airam TripathiHemoglobin (Bld) [Mass/Vol]9.9 g/dL Critically low12.0-16.0The [facility] CenterComment on above:Performed By: #### CBC ####[facility] Ulzrgtchbl6473[address] [place], [place] [address]Dr. Airam DeuceIG #0.03 10e3/ulNormal0.00-0.03The [facility] CenterComment on above: Performed By: #### CBC ####[facility] Hjvxwzpfjc6624[address] [place], [place] [address]Dr.Airam DeuceIG %0.6 %Critically high0.0-0.5The [facility] CenterComment on above:Performed By: #### CBC ####[facility] Yqbrfbsogf3268[address] [place], [place] [address]Dr.Airam DeuceLYMPH #1.5 103/ulNormal1.2-3.8The [facility] CenterComment on above:Performed By: #### CBC ####[facility] Nufuthxuih6328[address] [place], [place] [address]Dr. Airam DeuceLymphocytes/100 WBC (Bld)29.4 %Ogiajr28.5-60.0The [facility] Comment on above:Performed By: #### CBC ####[facility] Cqsfkeumnh9758[address] [place], [place] [address]Dr.Airam TripathiMANUAL DIFF REQNONormalThe [facility] CenterComment on above:Performed By: #### CBC ####[facility] Smigdxdibo[address] [place] [address]Dr.Airam TripathiH (RBC) [Entitic mass]30.5 zgXzetmy08.7-34.0The [facility] HospitalComment on above: Performed By: #### CBC ####[facility] Ladakbfkqb3145[address] [place], [place] [address]Dr.Airam TripathiHC (RBC) [Mass/Vol]31.7 g/dLNormal 29.9-35.2The [facility] CenterComment on above:Performed By: #### CBC ####[facility] Gzybmvbkpw95[address] [place], [place] [address]Dr. Airam TripathiV (RBC) [Entitic vol]96.0 hBWxjrip76.0-99.0The [facility] Comment on above:Performed By: #### CBC ####[facility] Rbuqkspirx8499[address] [place], [place] [address]Dr.Airam TripathiMONO #0.4 103/ulNormal0.3-0.8 The [facility] CenterComment on above:Performed By: #### CBC ####[facility] Owblgzcjdp027[address] [place], [place] [address]Dr.Airam Tripathi Monocytes/100 WBC (Bld)7.0 %Normal1.7-12.0The [facility] CenterComment on above: Performed By: #### CBC ####[facility] Xkxlrblmaa3996[address] [place], [place] [address]Dr.Airam TripathiNEUT #3.0 103/ulNormal1.4-6.5The [facility] CenterComment on above:Performed By: #### CBC ####[facility] Oeswxczomm896[address] [place], [place] [address]Dr.Airam TripathiNeutrophils/100 WBC (Bld)60.2 %Hnvbxe64.0-75.0The [facility] CenterComment on above:Performed By: #### CBC ####[facility] Evjvufkjbe5738[address] [place], [place] [address]Dr.Airam TripathiPlatelet mean volume (Bld) [Entitic vol]9.6 fLNormal9.5-13.5 The [facility] CenterComment on above:Performed By: #### CBC ####[facility] [address]ut[address] [place] [address]Dr.Airam TripathiPLT258 103/miYvoqpz564-719Wgn [facility] CenterComment on above:Performed By: #### CBC ####[facility] Ldxzkryyyk4395[address] [place], [place] [address]Dr. Airam TripathiRBC3.25 106/ulCritically low4.20-5.40The [facility] CenterComment on above:Performed By: #### CBC ####[facility] Skhjcklvvn8137[address] [place], [place] [address]Dr.Airam TripathiWBC5.0 103/ulNormal4.0-11.0The [facility] CenterComment on above:Performed By: #### CBC ####[facility] Xjajxiwnyn9159[address] [place], [place] [address]Dr.Airam TripathiPROF 14(COMP METB)on 60-19-3719Jgglrht [Mass/Vol]3.3 g/dLCritically low3.4-5.0The [facility] CenterComment on above:Performed By: #### CMP ####[facility] Udberapral7458[address] [place], [place] [address]Dr.Airam Tripathi Albumin/Globulin [Mass ratio]1.1 {ratio}NormalThe [facility] CenterComment on above:Performed By: #### CMP ####[facility] Tgmlmiuogi85[address] [place], [place] [address]Dr.Airam TripathiALP [Catalytic activity/Vol]106 U/L Xyqziu24-906Ngf [facility] CenterComment on above:Performed By: #### CMP ####[facility] Cxwrcwdeny5368[address] [place], [place] [address]Dr. Airam TripathiALT [Catalytic activity/Vol]22 U/EJazoma15-64Crv [facility] Comment on above:Performed By: #### CMP ####[facility] Nbxlbhifqf449[address] [place], [place] [address]Dr.Yilan ChangAnion gap [Moles/Vol]11.4 mmol/LNormalThe [facility] CenterComment on above:Performed By: #### CMP ####[facility] Hihmeujpkv7234[address] [place], [place] [address]Dr. Airam ChangAST [Catalytic activity/Vol]22 U/AAgoyra98-29Zra [facility] Comment on above:Performed By: #### CMP ####[facility] Qfzjbzbzfa8180[address] [place], [place] [address]Dr.Airam ChangBilirubin [Mass/Vol]0.3 mg/dL Normal0.2-1.0The [facility] CenterComment on above:Performed By: #### CMP ####[facility] Qistimjuxr044[address] [place], [place] [address]Dr. Airam ChangCalcium [Mass/Vol]8.1 mg/dLCritically low8.5-10.1The [facility] CenterComment on above:Performed By: #### CMP ####[facility] Zwntcerxhi0060[address] [place], [place] [address]Dr.Airam ChangChloride [Moles/Vol]100 mmol/ETmskkc73-943Qvm [facility] CenterComment on above:Performed By: #### CMP ####[facility] Gdalwgsrjw86[address] [place], [place] [address]Dr.Selenaneil ChangCO2 [Moles/Vol]25.6 mmol/QNaikud33.0-32.0The [facility] CenterComment on above:Performed By: #### CMP ####[facility] Ewtwfxechy305[address] [place], [place] [address]Dr.Airam ChangCreatinine [Mass/Vol]1.21 mg/dLCritically high0.55-1.02The [facility] CenterComment on above:Performed By: #### CMP ####[facility] Goicubzdsz6774[address] [place], [place] [address]Dr.Yilan ChangEGFR-AF ZAAZWOGD51 mL/min/1.73m2 Critically low>=60The [facility] CenterComment on above:Performed By: #### CMP ####[facility] Oxxszmfjcx4316[address] [place], [place] [address]Dr. Yilan ChangEGFR-NON AF IOEUSSGR48 mL/min/1.55z6Ukxtvvvgii low>=60The [facility] CenterComment on above:Performed By: #### CMP ####[facility] Frzcblbcqy2932[address] [place], [place] [address]Dr.Yilan ChangGlobulin (S) [Mass/Vol]3.0 g/dLNoGood Samaritan HospitalComment on above:Performed By: #### CMP ####[facility] Goxupzdewu66[address] [place], [place] [address]Dr.Yilan ChangGlucose [Mass/Vol]84 mg/hHOcsxea10-448Jck [facility] Comment on above:Performed By: #### CMP ####[facility] Rgzqopjnfo8315[address] [place], [place] [address]Dr.Yilan ChangPotassium [Moles/Vol]4.0 mmol/LNormal3.5-5.1The [facility] CenterComment on above:Performed By: #### CMP ####[facility] Uioqvjxpog7197[address] [place], [place] [address]Dr. Yilan ChangProtein [Mass/Vol]6.3 g/dLCritically low6.4-8.2The [facility] Comment on above:Performed By: #### CMP ####[facility] Kqyjuavood3298[address] [place], [place] [address]Dr.Yilan ChangSodium [Moles/Vol]133 mmol/L Critically yiu540-271Ejn [facility] CenterComment on above:Performed By: #### CMP ####[facility] Rvbbbwpsbl9107[address] [place], [place] [address]Dr. Yilan ChangUrea nitrogen [Mass/Vol]29.0 mg/dLCritically high7.0-18.0The [facility] CenterComment on above:Performed By: #### CMP ####[facility] Pyuznylnba6208[address] [place], [place] [address]Dr.Yilan ChangUrea nitrogen/Creatinine [Mass ratio]24.0 mg/mgNoGood Samaritan HospitalComment on above:Performed By: #### CMP ####[facility] Kblokyekxu[address] [place] [address]Dr.Airam ChangOSMOLALITYon 18-09-2544Rhylzomneo [Osmolality]285 mosm/mrIfqnor945-845Dsv [facility] CenterComment on above: Performed By: #### OSMO ####[facility] Rspksqrigd9425[address] [place], [place] [address]Dr. Airam ChangCBC AUTO DIFFon 85-05-0800YSDV #0.0 103/ulNormal0.0-0.1The [facility] CenterComment on above:Performed By: #### CBC ####[facility] Jlwdpqszxq9939[address] [place], [place] [address]Dr. Airam ChangBasophils/100 WBC (Bld)0.3 %Normal0.2-2.0The [facility] CenterCombaraga county memorial hospital on above:Performed By: #### CBC ####[facility] Djyntqgaky753[address] [place], [place] [address]Dr.Selenalan ChangEO #0.2 103/ulNormal0.0-0.7The [facility] CenterComment on above:Performed By: #### CBC ####[facility] Nyrfeqcvir4557[address] [place], [place] [address]Dr.Airam ChangEosinophils/100 WBC (Bld)2.7 %Normal0.9-7.0The [facility] on above:Performed By: #### CBC ####[facility] Ohagagrnzn260[address] [place], [place] [address]Dr.Airam ChangErythrocyte distribution width (RBC) [Ratio]14.4 %Normal 11.0-15.0The [facility] Hospitalment on above:Performed By: #### CBC ####[facility] Unpkawsktp675[address] [place], [place] [address]Dr. Airam ChangHematocrit (Bld) [Volume fraction]32.5 %Critically low36.0-48.0The [facility] CenterComment on above:Performed By: #### CBC ####[facility] Jjfcwfcbpu0101[address] [place], [place] [address]Dr.Airam ChangHemoglobin (Bld) [Mass/Vol]10.1 g/dLCritically low12.0-16.0The [facility] CenterComment on above:Performed By: #### CBC ####[facility] Opyniygwev0150[address] [place], [place] [address]DrBroderick TripathiIG #0.03 10e3/ulNormal0.00-0.03The [facility] CenterComment on above:Performed By: #### CBC ####[facility] Odmgubwzia4049[address] [place], [place] [address]Dr.Airam Tripathi %0.4 %Normal 0.0-0.5The [facility] HospitalComment on above:Performed By: #### CBC ####[facility] Oajxkvnzdq209[address] [place], [place] [address]Dr.Airam TripathiMOHANSIC STATE HOSPITALH #1.4 103/ulNormal1.2-3.8The [facility] CenterComment on above:Performed By: #### CBC ####[facility] Mxlalpnniq3773[address] [place], [place] [address]Dr.Airam TripathiErie County Medical Centerhocytes/100 WBC (Bld)19.4 %Critically low20.5-60.0The [facility] CenterComment on above:Performed By: #### CBC ####[facility] Knrghbmqqk299[address] [place], [place] [address]Dr.Airam TripathiKELLERUAL DIFF REQ NONormalThe [facility] CenterComment on above:Performed By: #### CBC ####[facility] Zcdzhteqha4328[address] [place], [place] [address]Dr. Airam TripathiST. LUKE'[facility] (RBC) [Entitic mass]30.6 tfNtaick72.7-34.0The [facility] Comment on above:Performed By: #### CBC ####[facility] Vxvrpbahed4963[address] [place], [place] [address]DrBroderick TripathiUPSTATE UNIV[facility] (RBC) [Mass/Vol]31.1 g/dL Mljbbb34.9-35.2The [facility] CenterComment on above:Performed By: #### CBC ####[facility] Nbtbnhboyw075[address] [place], [place] [address]Dr. Airam TripathiMCV (RBC) [Entitic vol]98.5 iSZkynhx24.0-99.0The [facility] Comment on above:Performed By: #### CBC ####[facility] Qtvhqnvzvj7034[address] [place], [place] [address]Dr.Airam TripathiMONO #0.5 103/ulNormal0.3-0.8 The [facility] CenterComment on above:Performed By: #### CBC ####[facility] Zwmkgydeku046[address] [place], [place] [address]Dr.Airam Tripathi Monocytes/100 WBC (Bld)6.7 %Normal1.7-12.0The [facility] CenterComment on above: Performed By: #### CBC ####[facility] Zgyijbpulp1079[address] [place], [place] [address]Dr.Airam TripathiNEUT #5.2 103/ulNormal1.4-6.5The [facility] CenterComment on above:Performed By: #### CBC ####[facility] Misaqyboxp0075[address] [place], [place] [address]Dr.Airam TripathiNeutrophils/100 WBC (Bld)70.5 %Evsuoc53.0-75.0The [facility] CenterComment on above:Performed By: #### CBC ####[facility] Qnoicizemi6379[address] [place], [place] [address]Dr.Airam TripathiPlatelet mean volume (Bld) [Entitic vol]9.8 fLNormal9.5-13.5 The [facility] CenterComment on above:Performed By: #### CBC ####[facility] Fekbvdrpdg6125[address] [place], [place] [address]Dr.Airam TripathiPLT277 103/wlZjingp158-407Fkb [facility] CenterComment on above:Performed By: #### CBC ####[facility] Jpxkexnezi2201[address] [place], [place] [address]Dr. Airam TripathiRBC3.30 106/ulCritically low4.20-5.40The [facility] CenterComment on above:Performed By: #### CBC ####[facility] Vbakaopaav8212[address] [place], [place] [address]Dr.Airam ChangWBC7.4 103/ulNormal4.0-11.0The [facility] CenterComment on above:Performed By: #### CBC ####[facility] Nesiuublzl478[address] [place], [place] [address]Dr.Airam ChangPROF 14(COMP METB)on 01-54-3763Pywgznj [Mass/Vol]3.6 g/dLNormal3.4-5.0The [facility] Comment on above:Performed By: #### CMP ####[facility] Cooikevhgl9579[address] [place], [place] [address]Dr.Airam TripathiAlbumin/Globulin [Mass ratio] 1.1 {ratio}NormalThe [facility] CenterComment on above:Performed By: #### CMP ####[facility] Isirnurlxl9179[address] [place], [place] [address]Dr. Airam TripathiALP [Catalytic activity/Vol]112 U/YZuzuuc99-104Bpz [facility] Comment on above:Performed By: #### CMP ####[facility] Yjwpwcssxx5628[address] [place], [place] [address]Dr.Airam ChangALT [Catalytic activity/Vol]26 U/GFjyrog85-01Vut [facility] CenterComment on above:Performed By: #### CMP ####[facility] Isswgdvmas1913[address] [place], [place] [address]Dr. Airam TripathiAnion gap [Moles/Vol]12.0 mmol/LNormalThe [facility] CenterComment on above:Performed By: #### CMP ####[facility] Ajeswbtgyg2909[address] [place], [place] [address]Dr.Airam ChangAST [Catalytic activity/Vol]25 U/LNormal 15-37The [facility] CenterComment on above:Performed By: #### CMP ####[facility] Glflookoop5928[address] [place], [place] [address]Dr.Airam Tripathi Bilirubin [Mass/Vol]0.4 mg/dLNormal0.2-1.0The [facility] CenterComment on above: Performed By: #### CMP ####[facility] [address]ae[address] [place] [id number].Yilan ChangCalcium [Mass/Vol]8.9 mg/dLNormal 8.5-10.1The [facility] CenterComment on above:Performed By: #### CMP ####[facility] Pdvtqpoujo[address] [place], [place] [address]Dr. Yilan ChangChloride [Moles/Vol]101 mmol/OBeyfff71-414Pqz [facility] Comment on above:Performed By: #### CMP ####[facility] Xzffitjgty122[address] [place], [place] [address]Dr.Yilan ChangCO2 [Moles/Vol]24.0 mmol/L Okcvhi11.0-32.0The [facility] CenterComment on above:Performed By: #### CMP ####[facility] Isahsjdutu682[address] [place], [place] [address]Dr. Yilan ChangCreatinine [Mass/Vol]1.51 mg/dLCritically high0.55-1.02The [facility] CenterComment on above:Performed By: #### CMP ####[facility] Pzjqvymvrh[address] [place], [place] [address]Dr.Yilan ChangEGFR-AF CBQPXUNL72 mL/min/1.29f4Cecoufyrta low>=60The [facility] CenterComment on above: Performed By: #### CMP ####[facility] Lwbinyzpbn19[address] [place], [place] [address]Dr.Yilan ChangEGFR-NON AF TGRJEVCV78 mL/min/1.73m2 Critically low>=60The [facility] CenterComment on above:Performed By: #### CMP ####[facility] Jfhcwbiwtz9[address] [place], [place] [address]Dr. Yilan ChangGlobulin (S) [Mass/Vol]3.2 g/dLNormalThe [facility] CenterComment on above:Performed By: #### CMP ####[facility] Yhhqrgkiml95[address] [place], [place] [address]Dr.Yilan ChangGlucose [Mass/Vol]82 mg/uHDawfmv46-239 The [facility] CenterComment on above:Performed By: #### CMP ####[facility] [address]grjrcdiy[address] [place] [address]Dr.Airam Tripathi Potassium [Moles/Vol]4.0 mmol/LNormal3.5-5.1The [facility] CenterComment on above:Performed By: #### CMP ####[facility] Aeinakirpj[address] [place], [place] [address]Dr.Airam ChangProtein [Mass/Vol]6.8 g/dLNormal6.4-8.2 The [facility] CenterComment on above:Performed By: #### CMP ####[facility] Jlwpwvmkol[address] [place], [place] [address]Dr.Airam TripathiSodium [Moles/Vol]133 mmol/LCritically zfj814-794Ius [facility] CenterComment on above:Performed By: #### CMP ####[facility] Wdykdargjy[address] [place], [place] [address]Dr.Airam TripathiUrea nitrogen [Mass/Vol]37.0 mg/dL Critically high7.0-18.0The [facility] CenterComment on above:Performed By: #### CMP ####[facility] Xffhlackgm0[address] [place], [place] [address]Dr. Airam ChangUrea nitrogen/Creatinine [Mass ratio]24.5 mg/mgNormalThe [facility] CenterComment on above:Performed By: #### CMP ####[facility] Nmnysvrehk[address] [place], [place] [address]Dr.Airam DeuceOSMOLALITYon 99-97-3045Droaqitvqz [Osmolality]284 mosm/jnIzfcxv034-174Nsn [facility] Comment on above:Performed By: #### OSMO ####[facility] Ftrbhkrimu[address] [place], [place] [address]Dr. Airam TripathiCBC AUTO DIFFon 03-04-2022 BASO #0.0 103/ulNormal0.0-0.1The [facility] CenterComment on above:Performed By: #### CBC ####[facility] Jcmfbicfux[address] [place], [place] [address]Dr.Selenalan ChangBasophils/100 WBC (Bld)0.3 %Normal0.2-2.0The [facility] CenterComment on above:Performed By: #### CBC ####[facility] Tlcrewflep[address] [place], [place] [address]Dr.Yilan ChangEO #0.1 103/ul Normal0.0-0.7The [facility] CenterComment on above:Performed By: #### CBC ####[facility] Mbqsuxgeid7629[address] [place], [place] [address]Dr. Yilan ChangEosinophils/100 WBC (Bld)2.0 %Normal0.9-7.0The [facility] Comment on above:Performed By: #### CBC ####[facility] Auusrtixzi4064[address] [place], [place] [address]Dr.Yilan ChangErythrocyte distribution width (RBC) [Ratio]14.5 %Uchain10.0-15.0The [facility] CenterComment on above: Performed By: #### CBC ####[facility] Boznooqktb60[address] [place], [place] [address]Dr.Yilan ChangHematocrit (Bld) [Volume fraction]35.4 % Critically low36.0-48.0The [facility] CenterComment on above:Performed By: #### CBC ####[facility] Joavrkrrhn[address] [place], [place] [address]Dr. Selenalan ChangHemoglobin (Bld) [Mass/Vol]11.0 g/dLCritically low12.0-16.0The [facility] CenterComment on above:Performed By: #### CBC ####[facility] Qspqstkbji2039[address] [place], [place] [address]Dr.Yilan ChangIG #0.03 10e3/ulNormal0.00-0.03The [facility] CenterComment on above:Performed By: #### CBC ####[facility] Xxiipgnbml5[address] [place], [place] [address]Dr. Yilan ChangIG %0.4 %Normal0.0-0.5The [facility] CenterComment on above:Performed By: #### CBC ####[facility] [address] [place] [address]Dr.Airam TripathiLYMPH #1.7 103/ulNormal1.2-3.8The [facility] Comment on above:Performed By: #### CBC ####[facility] [address]qs[address] [place] [address]Dr.Airam TripathiLymphocytes/100 WBC (Bld)23.8 %Jiygbb08.5-60.0The [facility] CenterComment on above:Performed By: #### CBC ####[facility] Ruosfiwpai7[address] [place], [place] [address]Dr. Airam ChangMANUAL DIFF REQNONormalThe [facility] CenterComment on above: Performed By: #### CBC ####[facility] Ngxvppfdct0120[address] [place], [place] [address]Dr.Airam TripathiH (RBC) [Entitic mass]30.0 pgNormal 26.7-34.0The [facility] CenterComment on above:Performed By: #### CBC ####[facility] Xtjptxujeq347[address] [place], [place] [address]Dr. Airam TripathiMCHC (RBC) [Mass/Vol]31.1 g/kYInbxxz22.9-35.2The [facility] Comment on above:Performed By: #### CBC ####[facility] Kowbxuwqgz[address] [place], [place] [address]Dr.Airam TripathiMCV (RBC) [Entitic vol]96.5 fL Mrgsrp22.0-99.0The [facility] CenterComment on above:Performed By: #### CBC ####[facility] Hskvpqqswn4[address] [place], [place] [address]Dr. Airam TripathiMONO #0.5 103/ulNormal0.3-0.8The [facility] CenterComment on above: Performed By: #### CBC ####[facility] Tlrsujnlax04[address] [place], [place] [address]Dr.Airam ChangMonocytes/100 WBC (Bld)6.6 %Normal 1.7-12.0The [facility] CenterComment on above:Performed By: #### CBC ####[facility] [address] [place] [address]Dr. Airam TripathiNEUT #4.7 103/ulNormal1.4-6.5The [facility] CenterComment on above: Performed By: #### CBC ####[facility] X[address]ky[address]ouj[address] [place] [address]Dr.Airam TripathiNeutrophils/100 WBC (Bld)66.9 %Normal 43.0-75.0The [facility] CenterComment on above:Performed By: #### CBC ####[facility] J[address]oddnp[address] [place] [address]Dr. Airam TripathiPlatelet mean volume (Bld) [Entitic vol]10.2 fLNormal9.5-13.5The [facility] on above:Performed By: #### CBC ####[facility] Hjzgqpzfov10[address] [place], [place] [address]Dr.Airam TripathiPLT270 103/ul Uiffuf752-198Vss [facility] CenterComment on above:Performed By: #### CBC ####[facility] Qosemdgzvh3757[address] [place], [place] [address]Dr. Selenaneil DeuceRBC3.67 106/ulCritically low4.20-5.40The [facility] on above:Performed By: #### CBC ####[facility] Otgwemdcvk297[address] [place], [place] [address]Dr.Selenaneil TripathiWBC7.0 103/ulNormal4.0-11.0The [facility] on above:Performed By: #### CBC ####[facility] Fqfphbabpz04[address] [place], [place] [address]Dr.Airam DeucePROF 14(COMP METB)on 86-40-1635Zwnwend [Mass/Vol]3.3 g/dLCritically low3.4-5.0The [facility] on above:Performed By: #### CMP ####[facility] Ndvmaphvxh[address] [place], [place] [address]Dr.Airam Tripathi Albumin/Globulin [Mass ratio]1.0 {ratio}NormalThe [facility] HospitalComment on above:Performed By: #### CMP ####[facility] [address]cmalff[address] [place] [address]Dr.Yilan ChangALP [Catalytic activity/Vol]107 U/L Eskdpt55-800Snf [facility] CenterComment on above:Performed By: #### CMP ####[facility] G[address]shguyuph[address] [place] [address]Dr. Yilan ChangALT [Catalytic activity/Vol]23 U/QWoarax44-68Esb [facility] Comment on above:Performed By: #### CMP ####[facility] Utyyzvfsbb9933[address] [place], [place] [address]Dr.Yilan ChangAnion gap [Moles/Vol]13.0 mmol/LNormalThe [facility] CenterComment on above:Performed By: #### CMP ####[facility] Gjdgjwroku25[address] [place], [place] [address]Dr. Yilan ChangAST [Catalytic activity/Vol]30 U/FNkirva91-34Ziy [facility] Comment on above:Performed By: #### CMP ####[facility] Isxdwcscph0813[address] [place], [place] [address]Dr.Yilan ChangBilirubin [Mass/Vol]0.2 mg/dL Normal0.2-1.0The [facility] CenterComment on above:Performed By: #### CMP ####[facility] Aytmxtasse[address] [place], [place] [address]Dr. Yilan ChangCalcium [Mass/Vol]8.8 mg/dLNormal8.5-10.1The [facility] CenterComment on above:Performed By: #### CMP ####[facility] Vrwqnvzfkw8454[address] [place], [place] [address]Dr.Yilan ChangChloride [Moles/Vol]103 mmol/LNormal 98-107The [facility] CenterComment on above:Performed By: #### CMP ####[facility] Lvhtajduwe68[address] [place], [place] [address]Dr.Yilan ChangCO2 [Moles/Vol]24.9 mmol/BDmnscc62.0-32.0The [facility] CenterComment on above: Performed By: #### CMP ####[facility] [address]dfd[address] [place] [address]Dr.Yilan ChangCreatinine [Mass/Vol]1.06 mg/dL Critically high0.55-1.02The [facility] on above:Performed By: #### CMP ####[facility] Tgukatqhmy5627[address] [place], [place] [address]Dr.Yilan ChangEGFR-AF DJIBOUTIAN>60Normal>=60The [facility] CenterComment on above:Performed By: #### CMP ####[facility] Ctbdrwuzxv23[address] [place], [place] [address]Dr.Yilan ChangEGFR-NON AF LVIMYEKV64 mL/min/1.73m2 Critically low>=60The [facility] on above:Performed By: #### CMP ####[facility] Seerrtaogk4075[address] [place], [place] [address]Dr. Airam ChangGlobulin (S) [Mass/Vol]3.2 g/dLNormalThe [facility] CenterCombar[facility] on above:Performed By: #### CMP ####[facility] Ucyofwqgbw89[address] [place], [place] [address]Dr.Yilan ChangGlucose [Mass/Vol]91 mg/kBUrfubh54-537 [facility] on above:Performed By: #### CMP ####[facility] Hkajmbfyxo4133[address] [place], [place] [address]Dr.Airam Tripathi Potassium [Moles/Vol]3.9 mmol/LNormal3.5-5.1The [facility] on above:Performed By: #### CMP ####[facility] Ykxvdxrkyp5996[address] [place], [place] [address]Dr.Yilan ChangProtein [Mass/Vol]6.5 g/dLNormal6.4-8.2 The [facility] CenterCombaraga [facility] on above:Performed By: #### CMP ####[facility] Urzdfreard8258[address] [place], [place] [address]Dr.Yilan ChangSodium [Moles/Vol]137 mmol/LUgdkob007-424Mgo [facility] on above: Performed By: #### CMP ####[facility] R[address]fejb[address] [place] [address]Dr.Airam ChangUrea nitrogen [Mass/Vol]27.0 mg/dL Critically high7.0-18.0The [facility] on above:Performed By: #### CMP ####[facility] Idwjtuzlgp3467[address] [place], [place] [address]Dr. Selenalan ChangUrea nitrogen/Creatinine [Mass ratio]25.5 mg/mgNormalThe [facility] on above:Performed By: #### CMP ####[facility] Qsihenodrj[address] [place], [place] [address]Dr.Selenalan ChangOSMOLALITYon 73-79-9651Faxovbwgob [Osmolality]383 mosm/kgInvalid Interpretation Kdjz101-090 The [facility] on above:Result Comment: Verified by repeat analysisPerformed By: #### OSMO ####[facility] Ixatbqibyn[address] [place], [place] [address]Dr. Airam ChangCBC AUTO DIFFon 93-07-8401LKGH #0.0 103/ulNormal0.0-0.1The [facility] on above:Performed By: #### CBC ####[facility] Hlpiwraljr[address] [place], [place] [address]Dr. Yilan ChangBasophils/100 WBC (Bld)0.4 %Normal0.2-2.0The [facility] on above:Performed By: #### CBC ####[facility] Jdjnncyufi5656[address] [place], [place] [address]Dr.Yilan ChangEO #0.2 103/ulNormal0.0-0.7The [facility] on above:Performed By: #### CBC ####[facility] Wtzwmfiujh8834[address] [place], [place] [address]Dr.Selenalan ChangEosinophils/100 WBC (Bld)3.9 %Normal0.9-7.0The [facility] on above:Performed By: #### CBC ####[facility] Rcqxihjaao1858[address] [place], [place] [address]Dr.Airam ChangErythrocyte distribution width (RBC) [Ratio]13.9 %Normal 11.0-15.0The [facility] CenterComment on above:Performed By: #### CBC ####[facility] Frctvpyxhg9860[address] [place], [place] [address]Dr. Airam ChangHematocrit (Bld) [Volume fraction]32.7 %Critically low36.0-48.0The [facility] HospitalComment on above:Performed By: #### CBC ####[facility] Yvspijhycl1843[address] [place], [place] [address]Dr.Selenaneil ChangHemoglobin (Bld) [Mass/Vol]10.7 g/dLCritically low12.0-16.0The [facility] CenterComment on above:Performed By: #### CBC ####[facility] Kaetjjfpcn27[address] [place], [place] [address]Dr.Selenaneil ChangIG #0.02 10e3/ulNormal0.00-0.03The [facility] CenterComment on above:Performed By: #### CBC ####[facility] Dxqssagqxa4514[address] [place], [place] [address]Dr.Selenaneil ChangIG %0.4 %Normal 0.0-0.5The [facility] CenterComment on above:Performed By: #### CBC ####[facility] Palmanrvar5553[address] [place], [place] [address]Dr.Airam ChangLYMPH #1.2 103/ulNormal1.2-3.8The [facility] CenterComment on above:Performed By: #### CBC ####[facility] Qidcujnrdp2036[address] [place], [place] [address]Dr.Selenaneil ChangLymphocytes/100 WBC (Bld)25.0 %Mglncn82.5-60.0The [facility] CenterComment on above:Performed By: #### CBC ####[facility] Ikmaisvrhk5167[address] [place], [place] [address]Dr.Selenaneil DeuceMANUAL DIFF REQ NONormalThe [facility] CenterComment on above:Performed By: #### CBC ####[facility] [address]bbt[address] [place] [address]Dr. Airam TripathiH (RBC) [Entitic mass]30.7 eaTevgku98.7-34.0The [facility] Comment on above:Performed By: #### CBC ####[facility] Ctnrkhzvsi9878[address] [place], [place] [address]Dr.Airam TripathiMCHC (RBC) [Mass/Vol]32.7 g/dL Jgsqoq86.9-35.2The [facility] CenterComment on above:Performed By: #### CBC ####[facility] Pcjuslcyqr05[address] [place], [place] [address]Dr. Airam TripathiMCV (RBC) [Entitic vol]93.7 eJPytwlb71.0-99.0The [facility] Comment on above:Performed By: #### CBC ####[facility] Tsufxicnio70[address] [place], [place] [address]Dr.Airam TripathiMONO #0.4 103/ulNormal0.3-0.8 The [facility] CenterComment on above:Performed By: #### CBC ####[facility] Cquutudskb1373[address] [place], [place] [address]Dr.Airam Tripathi Monocytes/100 WBC (Bld)7.5 %Normal1.7-12.0The [facility] CenterComment on above: Performed By: #### CBC ####[facility] Lqpjxzujpc32[address] [place], [place] [address]Dr.Airam TripathiNEUT #3.1 103/ulNormal1.4-6.5The [facility] CenterComment on above:Performed By: #### CBC ####[facility] Sabpktnrys8414[address] [place], [place] [address]Dr.Airam TripathiNeutrophils/100 WBC (Bld)62.8 %Yptpgj40.0-75.0The [facility] CenterComment on above:Performed By: #### CBC ####[facility] Bzsfszwdlc4830[address] [place], [place] [address]Dr.Airam TripathiPlatelet mean volume (Bld) [Entitic vol]9.5 fLNormal9.5-13.5 The [facility] CenterComment on above:Performed By: #### CBC ####[facility] Apqvuesoob[address] [place] [address]Dr.Airam TripathiPLT250 103/mjVzcwqj770-101Jxh [facility] CenterComment on above:Performed By: #### CBC ####[facility] Rjxxhzfgpm7406[address] [place], [place] [address]Dr. Airam TripathiRBC3.49 106/ulCritically low4.20-5.40The [facility] CenterComment on above:Performed By: #### CBC ####[facility] Jayqukggkb887[address] [place], [place] [address]Dr.Airam TripathiWBC4.9 103/ulNormal4.0-11.0The [facility] CenterComment on above:Performed By: #### CBC ####[facility] Vzneqixrsp035[address] [place], [place] [address]Dr.Airam TripathiPROF 14(COMP METB)on 15-98-7077Eubrkmd [Mass/Vol]3.3 g/dLCritically low3.4-5.0The [facility] CenterComment on above:Performed By: #### CMP ####[facility] Ibvqntuqqx7214[address] [place], [place] [address]Dr.Airam Tripathi Albumin/Globulin [Mass ratio]1.0 {ratio}NormalThe [facility] CenterComment on above:Performed By: #### CMP ####[facility] Qwrbrghrwr41[address] [place], [place] [address]Dr.Airam TripathiALP [Catalytic activity/Vol]127 U/L Critically mrqv51-965Ael [facility] CenterComment on above:Performed By: #### CMP ####[facility] Gnnltrfmlt8567[address] [place], [place] [address]Dr. Airam TripathiALT [Catalytic activity/Vol]22 U/JRxkeft27-38Uvk [facility] Comment on above:Performed By: #### CMP ####[facility] Hzwbejmddp209[address] [place], [place] [address]Dr.Yilan ChangAnion gap [Moles/Vol]11.9 mmol/LNormalThe [facility] CenterComment on above:Performed By: #### CMP ####[facility] Mdsbdujpyb7897[address] [place], [place] [address]Dr. Selenaneil ChangAST [Catalytic activity/Vol]21 U/VMldobz21-06Wjr [facility] Comment on above:Performed By: #### CMP ####[facility] Pcdvuqtjij9044[address] [place], [place] [address]Dr.Airam ChangBilirubin [Mass/Vol]0.3 mg/dL Normal0.2-1.0The [facility] CenterComment on above:Performed By: #### CMP ####[facility] Lqtgeqykkb5315[address] [place], [place] [address]Dr. Airam ChangCalcium [Mass/Vol]8.6 mg/dLNormal8.5-10.1The [facility] CenterComment on above:Performed By: #### CMP ####[facility] Lyqtanwjjf2460[address] [place], [place] [address]Dr.Airam ChangChloride [Moles/Vol]105 mmol/LNormal 98-107The [facility] CenterComment on above:Performed By: #### CMP ####[facility] Rtbetrqdbj[address] [place], [place] [address]Dr.Airam ChangCO2 [Moles/Vol]23.6 mmol/OBwsjeh59.0-32.0The [facility] CenterComment on above: Performed By: #### CMP ####[facility] Pfhwgovevy[address] [place], [place] [address]Dr.Airam ChangCreatinine [Mass/Vol]1.29 mg/dL Critically high0.55-1.02The [facility] CenterComment on above:Performed By: #### CMP ####[facility] Brkspbgjrm158[address] [place], [place] [address]Dr.Airam ChangEGFR-AF PAKQZKHK85 mL/min/1.82d8Ffftpbtdns low>=60The [facility] CenterComment on above:Performed By: #### CMP ####[facility] Ekaalykeyb5275[address] [place], [place] [address]Dr.Yilan ChangEGFR-NON AF TCUQSYQI29 mL/min/1.71k7Shpxpdanni low>=60The [facility] CenterComment on above: Performed By: #### CMP ####[facility] Hwjsousyxd4125[address] [place], [place] [address]Dr.Yilan ChangGlobulin (S) [Mass/Vol]3.2 g/dLNormSelect Medical OhioHealth Rehabilitation HospitalComment on above:Performed By: #### CMP ####[facility] Tgbkgykzsy549[address] [place], [place] [address]Dr.Yilan ChangGlucose [Mass/Vol]94 mg/wZXsrzct03-712Mnh [facility] CenterComment on above:Performed By: #### CMP ####[facility] Valvotcblz01[address] [place], [place] [address]Dr.Yilan ChangPotassium [Moles/Vol]3.5 mmol/LNormal3.5-5.1The [facility] CenterComment on above:Performed By: #### CMP ####[facility] Waykfxjyxj1164[address] [place], [place] [address]Dr.Yilan ChangProtein [Mass/Vol]6.5 g/dLNormal6.4-8.2The [facility] CenterComment on above:Performed By: #### CMP ####[facility] Ytxfpufsfb7109[address] [place], [place] [address]Dr.Yilan ChangSodium [Moles/Vol]137 mmol/ZFmlgfx849-480Yla [facility] CenterComment on above:Performed By: #### CMP ####[facility] Xfcdskawkt[address] [place], [place] [address]Dr.Yilan ChangUrea nitrogen [Mass/Vol]37.0 mg/dLCritically high7.0-18.0The [facility] CenterComment on above:Performed By: #### CMP ####[facility] Acaltgtkpu5605[address] [place], [place] [address]Dr.Yilan ChangUrea nitrogen/Creatinine [Mass ratio] 28.7 mg/mgNoGood Samaritan HospitalComment on above:Performed By: #### CMP ####[facility] Ntnirarsqm[address] [place] [address]Dr. Airam TripathiOSMOLALITYon 11-60-5082Dxquvyimne [Osmolality]283 mosm/kgNormal 275-295The [facility] CenterComment on above:Performed By: #### OSMO ####[facility] Bcolelspus94[address] [place], [place] [address]Dr. Airam TripathiCBC AUTO DIFFon 51-26-3548MEHU #0.0 103/ulNormal0.0-0.1The [facility] CenterComment on above:Performed By: #### CBC ####[facility] Lqswtagrtn5[address] [place], [place] [address]Dr.Selenaneil DeuceBasophils/100 WBC (Bld)0.3 %Normal0.2-2.0The [facility] on above:Performed By: #### CBC ####[facility] Bctzsaknas30[address] [place], [place] [address]Dr.Selenalan ChangEO #0.1 103/ulNormal0.0-0.7The [facility] Hospitalment on above:Performed By: #### CBC ####[facility] Btluzeksav283[address] [place], [place] [address]Dr.Selenaneil ChangEosinophils/100 WBC (Bld)1.6 %Normal 0.9-7.0The [facility] on above:Performed By: #### CBC ####[facility] Zvybqdjyza8584[address] [place], [place] [address]Dr.Airam Tripathi Erythrocyte distribution width (RBC) [Ratio]13.4 %Sbyein10.0-15.0The [facility] Hospitalment on above:Performed By: #### CBC ####[facility] Pkufcpmqil4644[address] [place], [place] [address]Dr.Airam TripathiHematocrit (Bld) [Volume fraction]31.4 %Critically low36.0-48.0The [facility] Hospitalment on above:Performed By: #### CBC ####[facility] Xotslbuhlh5617[address] [place], [place] [address]Dr.Airam TripathiHemoglobin (Bld) [Mass/Vol]10.0 g/dL Critically low12.0-16.0The [facility] CenterComment on above:Performed By: #### CBC ####[facility] Slpnvthlbx5[address] [place], [place] [address]DrKianna TripathiIG #0.03 10e3/ulNormal0.00-0.03The [facility] CenterComment on above: Performed By: #### CBC ####[facility] Mzpkvtumqk9168[address] [place], [place] [address]Dr.Airam TripathiIG %0.4 %Normal0.0-0.5The [facility] CenterComment on above:Performed By: #### CBC ####[facility] Zwkzskwjqy7965[address] [place], [place] [address]Dr.Airam TripathiMOHANSIC STATE HOSPITALH #1.6 103/ulNormal1.2-3.8The [facility] CenterComment on above:Performed By: #### CBC ####[facility] Uvzzxqtoqs820[address] [place], [place] [address]Dr. Airam Dosshocytes/100 WBC (Bld)24.5 %Vcqlvq74.5-60.0The [facility] Comment on above:Performed By: #### CBC ####[facility] Tiwxpnpxxb0738[address] [place], [place] [address]Dr.Airam TripathiMANUAL DIFF REQNONormalThe [facility] CenterComment on above:Performed By: #### CBC ####[facility] Duvwsicqxl2565[address] [place], [place] [address]Dr.Airam TripathiST. LUKE'[facility] (RBC) [Entitic mass]30.2 tjStbyir12.7-34.0The [facility] CenterComment on above: Performed By: #### CBC ####[facility] Kqgwdkghgp[address] [place], [place] [address]Dr.Airam TripathiUPSTATE UN[facility] (RBC) [Mass/Vol]31.8 g/dLNormal 29.9-35.2The [facility] CenterComment on above:Performed By: #### CBC ####[facility] Tfoyasteww25[address] [place], [place] [address]Dr. Airam TripathiMCV (RBC) [Entitic vol]94.9 wUZxqudg34.0-99.0The [facility] Comment on above:Performed By: #### CBC ####[facility] Gmgeilkxom4[address] [place], [place] [address]Dr.Airam TripathiMONO #0.4 103/ulNormal0.3-0.8 The [facility] CenterComment on above:Performed By: #### CBC ####[facility] Fiskxhvnkt[address] [place], [place] [address]Dr.Airam Tripathi Monocytes/100 WBC (Bld)5.8 %Normal1.7-12.0The [facility] CenterComment on above: Performed By: #### CBC ####[facility] Punhjzhbqf49[address] [place], [place] [address]Dr.Airam TripathiNEUT #4.5 103/ulNormal1.4-6.5The [facility] CenterComment on above:Performed By: #### CBC ####[facility] [facility] [address]wqvkgpx[address] [place], [place] [address]Dr.Airam TripathiNeutrophils/100 WBC (Bld)67.4 %Hphzkr34.0-75.0The [facility] CenterComment on above:Performed By: #### CBC ####[facility] Ybflkrcfwz[address] [place], [place] [address]Dr.Airam TripathiPlatelet mean volume (Bld) [Entitic vol]9.6 fLNormal9.5-13.5 The [facility] CenterComment on above:Performed By: #### CBC ####[facility] Ouwyiauero[address] [place], [place] [address]Dr.Airam TripathiPLT251 103/ffZwgbhx919-265Vmd [facility] CenterComment on above:Performed By: #### CBC ####[facility] Qzolapegwg52[address] [place], [place] [address]Dr. Airam TripathiRBC3.31 106/ulCritically low4.20-5.40The [facility] CenterComment on above:Performed By: #### CBC ####[facility] Nmeeigodzx[address] [place], [place] [address]Dr.Airam ChangWBC6.7 103/ulNormal4.0-11.0The [facility] CenterComment on above:Performed By: #### CBC ####[facility] [address] [place] [address]Dr.Airam ChangPROF 14(COMP METB)on 00-25-8240Gihfzps [Mass/Vol]3.5 g/dLNormal3.4-5.0The [facility] Comment on above:Performed By: #### CMP ####[facility] Mjtgipdizg[address] [place] [address]Dr.Selenaneil ChangAlbumin/Globulin [Mass ratio] 1.2 {ratio}NormalThe [facility] CenterComment on above:Performed By: #### CMP ####[facility] Zeymwlogoe34[address] [place], [place] [address]Dr. Airam ChangALP [Catalytic activity/Vol]130 U/LCritically djwy43-335Mnc [facility] CenterComment on above:Performed By: #### CMP ####[facility] Hgwqeecaqk[address] [place], [place] [address]Dr.Yineil ChangALT [Catalytic activity/Vol]18 U/YSvjhxk52-03Ura [facility] CenterComment on above:Performed By: #### CMP ####[facility] Evvjtqgusn67[address] [place], [place] [address]Dr.Airam ChangAnion gap [Moles/Vol]14.0 mmol/LNormalThe [facility] Comment on above:Performed By: #### CMP ####[facility] Zjqtvwzrho6[address] [place], [place] [address]Dr.Yilan ChangAST [Catalytic activity/Vol]20 U/LYxdjri65-48Zmd [facility] CenterComment on above:Performed By: #### CMP ####[facility] Kgcypponzv[address] [place], [place] [address]Dr. Airam ChangBilirubin [Mass/Vol]0.3 mg/dLNormal0.2-1.0The [facility] Comment on above:Performed By: #### CMP ####[facility] [address]jvovhah[address] [place] [address]Dr.Yilan ChangCalcium [Mass/Vol]8.5 mg/dL Normal8.5-10.1The [facility] CenterComment on above:Performed By: #### CMP ####[facility] Pstfsiueba[address] [place], [place] [address]Dr. Yilan ChangChloride [Moles/Vol]100 mmol/IWlhvps36-749Xkr [facility] Comment on above:Performed By: #### CMP ####[facility] Yuqceyzaol8[address] [place], [place] [address]Dr.Yilan ChangCO2 [Moles/Vol]22.7 mmol/L Qtcvha38.0-32.0The [facility] CenterComment on above:Performed By: #### CMP ####[facility] Fkdhfqmonl62[address] [place], [place] [address]Dr. Yilan ChangCreatinine [Mass/Vol]1.28 mg/dLCritically high0.55-1.02The [facility] CenterComment on above:Performed By: #### CMP ####[facility] Anmgtvquzg[address] [place], [place] [address]Dr.Yilan ChangEGFR-AF JNQKETGE47 mL/min/1.94p1Hwdejtwtwg low>=60The [facility] CenterComment on above: Performed By: #### CMP ####[facility] Bkqcttbooa68[address] [place], [place] [address]Dr.Yilan ChangEGFR-NON AF YGUFENHZ63 mL/min/1.73m2 Critically low>=60The [facility] CenterComment on above:Performed By: #### CMP ####[facility] Sxsqthjyca[address] [place], [place] [address]Dr. Yilan ChangGlobulin (S) [Mass/Vol]2.9 g/dLNormalThe [facility] CenterComment on above:Performed By: #### CMP ####[facility] Owueuedxuh4324[address] [place], [place] [address]Dr.Yilan ChangGlucose [Mass/Vol]93 mg/eRQcyofp36-154 The [facility] CenterComment on above:Performed By: #### CMP ####[facility] Xozqvwskfo[address] [place] [address]Dr.Airam Tripathi Potassium [Moles/Vol]3.7 mmol/LNormal3.5-5.1The [facility] CenterComment on above:Performed By: #### CMP ####[facility] Uydewshhmt22[address] [place], [place] [address]Dr.Airam ChangProtein [Mass/Vol]6.4 g/dLNormal6.4-8.2 The [facility] CenterComment on above:Performed By: #### CMP ####[facility] Ixjgrithqr[address] [place], [place] [address]Dr.Airam ChangSodium [Moles/Vol]133 mmol/LCritically yyh001-620Hav [facility] CenterComment on above:Performed By: #### CMP ####[facility] Exgzneflrt1540[address] [place], [place] [address]Dr.Airam TripathiUrea nitrogen [Mass/Vol]44.0 mg/dL Critically high7.0-18.0The [facility] CenterComment on above:Performed By: #### CMP ####[facility] Wyqgneqjre3229[address] [place], [place] [address]Dr. Airam ChangUrea nitrogen/Creatinine [Mass ratio]34.4 mg/mgNormalThe [facility] CenterComment on above:Performed By: #### CMP ####[facility] Fyewtkukut74[address] [place], [place] [address]Dr.Airam TripathiOSMOLALITYon 70-41-4940Hopdejobuj [Osmolality]288 mosm/oqDadwez409-242Hrk [facility] Comment on above:Performed By: #### OSMO ####[facility] Lsbvofmqhv4[address] [place], [place] [address]Dr. Airam TripathiCBC AUTO DIFFon 02-08-2022 BASO #0.0 103/ulNormal0.0-0.1The [facility] CenterComment on above:Performed By: #### CBC ####[facility] Bjjxlumimw8410[address] [place], [place] [address]Dr.Airam ChangBasophils/100 WBC (Bld)0.3 %Normal0.2-2.0The [facility] CenterComment on above:Performed By: #### CBC ####[facility] Zsjrjdqzgu8943[address] [place], [place] [address]Dr.Yilan ChangEO #0.2 103/ul Normal0.0-0.7The [facility] CenterComment on above:Performed By: #### CBC ####[facility] Hikkzsyofq7[address] [place], [place] [address]Dr. Selenalan ChangEosinophils/100 WBC (Bld)2.1 %Normal0.9-7.0The [facility] Comment on above:Performed By: #### CBC ####[facility] Bwkygdsakr12[address] [place], [place] [address]Dr.Airam ChangErythrocyte distribution width (RBC) [Ratio]13.4 %Bofumq58.0-15.0The [facility] CenterComment on above: Performed By: #### CBC ####[facility] Fncipdaqez6425[address] [place], [place] [address]Dr.Airam ChangHematocrit (Bld) [Volume fraction]35.1 % Critically low36.0-48.0The [facility] CenterComment on above:Performed By: #### CBC ####[facility] Lwzhgbktak3920[address] [place], [place] [address]Dr. Airam ChangHemoglobin (Bld) [Mass/Vol]10.9 g/dLCritically low12.0-16.0The [facility] CenterComment on above:Performed By: #### CBC ####[facility] Dbdabphbbh23[address] [place], [place] [address]Dr.Airam ChangIG #0.03 10e3/ulNormal0.00-0.03The [facility] CenterComment on above:Performed By: #### CBC ####[facility] Wwjgndvzhp40[address] [place], [place] [address]Dr. Selenalan ChangIG %0.3 %Normal0.0-0.5The [facility] CenterComment on above:Performed By: #### CBC ####[facility] Ejdwdwvpqf53[address] [place], [place] [address]Dr.Airam TripathiLYMPH #1.3 103/ulNormal1.2-3.8The [facility] Comment on above:Performed By: #### CBC ####[facility] [address]rygn[address] [place] [address]Dr.Airam TripathiLymphocytes/100 WBC (Bld)13.1 %Critically low20.5-60.0The [facility] CenterComment on above:Performed By: #### CBC ####[facility] Yfjqidmhry[address] [place] [address]Dr.Airam TripathiMANUAL DIFF REQNONormalThe [facility] CenterComment on above: Performed By: #### CBC ####[facility] [address]dlwsjdr[address] [place] [address]Dr.Airam TripathiH (RBC) [Entitic mass]30.4 pgNormal 26.7-34.0The [facility] CenterComment on above:Performed By: #### CBC ####[facility] [address] [place] [address]Dr. Airam TripathiHC (RBC) [Mass/Vol]31.1 g/vSRlnlpq06.9-35.2The [facility] Comment on above:Performed By: #### CBC ####[facility] [address]ivndaor[address] [place] [address]Dr.Airam TripathiMCV (RBC) [Entitic vol]98.0 fL Twdpjn79.0-99.0The [facility] CenterComment on above:Performed By: #### CBC ####[facility] [address]vyy[address] [place] [address]Dr. Airam TripathiMONO #0.5 103/ulNormal0.3-0.8The [facility] CenterComment on above: Performed By: #### CBC ####[facility] [address]jkw[address] [place] [address]Dr.Airam ChangMonocytes/100 WBC (Bld)4.7 %Normal 1.7-12.0The [facility] CenterComment on above:Performed By: #### CBC ####[facility] [address]ctbjli[address] [place] [address]Dr. Airam TripathiNEUT #7.7 103/ulCritically high1.4-6.5The [facility] CenterComment on above:Performed By: #### CBC ####[facility] [address]cl[address]asmhqq[address] [place] [address]Dr.Airam TripathiNeutrophils/100 WBC (Bld)79.5 % Critically high43.0-75.0The [facility] CenterComment on above:Performed By: #### CBC ####[facility] Zamkmcayai[address] [place] [address]Dr. Airam TripathiPlatelet mean volume (Bld) [Entitic vol]9.6 fLNormal9.5-13.5The [facility] CenterComment on above:Performed By: #### CBC ####[facility] [address]wlhvisys[address] [place] [address]Dr.Airam NntxiJTD966 103/ul Hsqsal854-455Apf [facility] CenterComment on above:Performed By: #### CBC ####[facility] M[address]qmwnsgv6[address] [place] [address]Dr. Airam ChangRBC3.58 106/ulCritically low4.20-5.40The [facility] CenterComment on above:Performed By: #### CBC ####[facility] Plvhxtcxqj33[address] [place] [address]Dr.Airam ChangWBC9.7 103/ulNormal4.0-11.0The [facility] CenterComment on above:Performed By: #### CBC ####[facility] I[address]cjew[address] [place], [place] [address]Dr.Selenaneil ChangPROF 14(COMP METB)on 83-86-8176Tohkrup [Mass/Vol]3.6 g/dLNormal3.4-5.0The [facility] Comment on above:Performed By: #### CMP ####[facility] Olxezkezkk[address] [place], [place] [address]Dr.Airam TripathiAlbumin/Globulin [Mass ratio] 1.1 {ratio}NormalThe [facility] CenterComment on above:Performed By: #### CMP ####[facility] Iaegtdkius[address] [place] [address]Dr. Yilan ChangALP [Catalytic activity/Vol]131 U/LCritically ccpm03-067Exs [facility] CenterComment on above:Performed By: #### CMP ####[facility] Mgtpfggbwm[address] [place] [address]Dr.Yilan ChangALT [Catalytic activity/Vol]22 U/FMqnter02-81Ome [facility] CenterComment on above:Performed By: #### CMP ####[facility] Kdmhsprbvg[address] [place] [address]Dr.Yilan ChangAnion gap [Moles/Vol]13.3 mmol/LNormalThe [facility] Comment on above:Performed By: #### CMP ####[facility] Lntvtqrttx8[address] [place], [place] [address]Dr.Yilan ChangAST [Catalytic activity/Vol]23 U/DIfyjmc43-33Twj [facility] CenterComment on above:Performed By: #### CMP ####[facility] Qfycpuwihp99[address] [place], [place] [address]Dr. Yilan ChangBilirubin [Mass/Vol]0.3 mg/dLNormal0.2-1.0The [facility] Comment on above:Performed By: #### CMP ####[facility] Ntqrgzwjtc17[address] [place], [place] [address]Dr.Yilan ChangCalcium [Mass/Vol]8.7 mg/dL Normal8.5-10.1The [facility] CenterComment on above:Performed By: #### CMP ####[facility] Xzbaofjjdf[address] [place] [address]Dr. Yilan ChangChloride [Moles/Vol]104 mmol/NBjmtcd53-847Xqr [facility] Comment on above:Performed By: #### CMP ####[facility] [address]rdfzgjvw[address] [place] [address]Dr.Yilan ChangCO2 [Moles/Vol]22.0 mmol/L Mlzwfn78.0-32.0The [facility] CenterComment on above:Performed By: #### CMP ####[facility] Behpqupjur[address] [place] [address]Dr. Airam ChangCreatinine [Mass/Vol]1.20 mg/dLCritically high0.55-1.02The [facility] on above:Performed By: #### CMP ####[facility] Hqzzfzlusr[address] [place] [address]Dr.Yilan ChangEGFR-AF YFDTUQDZ61 mL/min/1.01d6Ubxvlrwlhp low>=60The [facility] CenterCom[facility] on above: Performed By: #### CMP ####[facility] Mdrpvqdjdo4[address] [place], [place] [address]Dr.Yilan ChangEGFR-NON AF KOLYEZSY92 mL/min/1.73m2 Critically low>=60The [facility] on above:Performed By: #### CMP ####[facility] Lzyfczftaf1625[address] [place], [place] [address]Dr. Airam ChangGlobulin (S) [Mass/Vol]3.2 g/dLNormalThCommunity Memorial HospitalCombaraga county [facility] on above:Performed By: #### CMP ####[facility] Awgdgjvpnj86[address] [place], [place] [address]Dr.Yilan ChangGlucose [Mass/Vol]98 mg/nAHllots13-003 [facility] on above:Performed By: #### CMP ####[facility] Vukfafciip55[address] [place], [place] [address]Dr.Airam Tripathi Potassium [Moles/Vol]4.3 mmol/LNormal3.5-5.1[facility] on above:Performed By: #### CMP ####[facility] Mywmgmadky7844[address] [place], [place] [address]Dr.Yilan ChangProtein [Mass/Vol]6.8 g/dLNormal6.4-8.2 [facility] on above:Performed By: #### CMP ####[facility] Oxgvrhjerh8134[address] [place], [place] [address]Dr.Yilan ChangSodium [Moles/Vol]135 mmol/LCritically lsw463-955Qkt [facility] CenterComment on above:Performed By: #### CMP ####[facility] Qhmpeqwujj[address] [place], [place] [address]Dr.Selenalan ChangUrea nitrogen [Mass/Vol]33.0 mg/dL Critically high7.0-18.0The [facility] CenterComment on above:Performed By: #### CMP ####[facility] Brjbeufctm230[address] [place], [place] [address]Dr. Yilan ChangUrea nitrogen/Creatinine [Mass ratio]27.5 mg/mgNormalThe [facility] CenterComment on above:Performed By: #### CMP ####[facility] Bkjqkqoezm079[address] [place], [place] [address]Dr.Selenalan ChangOSMOLALITYon 29-37-1285Huszhwnrzk [Osmolality]299 mosm/kgCritically zlfu619-400Jqs [facility] CenterComment on above:Performed By: #### OSMO ####[facility] Izzesocyce2878[address] [place], [place] [address]Dr. Yilan ChangCBC AUTO DIFF on 53-09-3684XJZH #0.0 103/ulNormal0.0-0.1The [facility] CenterComment on above: Performed By: #### CBC ####[facility] Vmwwppqfyz47[address] [place], [place] [address]Dr.Yilan ChangBasophils/100 WBC (Bld)0.4 %Normal 0.2-2.0The [facility] CenterComment on above:Performed By: #### CBC ####[facility] Btvekdvthc77[address] [place], [place] [address]Dr.Yilan ChangEO # 0.3 103/ulNormal0.0-0.7The [facility] CenterComment on above:Performed By: #### CBC ####[facility] Pseqhkhfld195[address] [place], [place] [address]Dr. Yilan ChangEosinophils/100 WBC (Bld)3.6 %Normal0.9-7.0The [facility] Comment on above:Performed By: #### CBC ####[facility] Ccunhrwbxt7539[address] [place], [place] [address]Dr.Selenaneil ChangErythrocyte distribution width (RBC) [Ratio]13.2 %Wburkb15.0-15.0The [facility] CenterComment on above: Performed By: #### CBC ####[facility] Nnzjcwlrvm76[address] [place], [place] [address]Dr.Selenaneil ChangHematocrit (Bld) [Volume fraction]32.0 % Critically low36.0-48.0The [facility]Comment on above:Performed By: #### CBC ####[facility] Dhbpiqukur8767[address] [place], [place] [address]Dr. Selenaneil ChangHemoglobin (Bld) [Mass/Vol]9.8 g/dLCritically low12.0-16.0The [facility] CenterComment on above:Performed By: #### CBC ####[facility] Xlniojcyea6423[address] [place], [place] [address]Dr.Yilan ChangIG #0.03 10e3/ulNormal0.00-0.03The [facility] CenterComment on above:Performed By: #### CBC ####[facility] Krnluwfgtr6124[address] [place], [place] [address]Dr. Airam ChangIG %0.4 %Normal0.0-0.5The [facility] CenterComment on above:Performed By: #### CBC ####[facility] Trkikmyvar7397[address] [place], [place] [address]Dr.Selenalan ChangLYMPH #1.7 103/ulNormal1.2-3.8The [facility] Comment on above:Performed By: #### CBC ####[facility] Ayekbbtnwr4948[address] [place], [place] [address]Dr.Selenaneil TripathiLymphocytes/100 WBC (Bld)24.8 %Oqsvlc03.5-60.0The [facility] CenterComment on above:Performed By: #### CBC ####[facility] Hktlqmwfuf256[address] [place], [place] [address]Dr. Selenalan ChangMANUAL DIFF REQNONormalThe [facility] CenterComment on above: Performed By: #### CBC ####[facility] Crpmvisleg75[address] [place] [address]Dr.Airam TripathiH (RBC) [Entitic mass]29.6 pgNormal 26.7-34.0The [facility] CenterComment on above:Performed By: #### CBC ####[facility] Qtlwbqhubf[address] [place] [address]Dr. Airam TripathiHC (RBC) [Mass/Vol]30.6 g/cGZkcqvg81.9-35.2The [facility] Comment on above:Performed By: #### CBC ####[facility] Qmspooiydv60[address] [place], [place] [address]Dr.Selenaneil TripathiMCV (RBC) [Entitic vol]96.7 fL Xtskir27.0-99.0The [facility] CenterComment on above:Performed By: #### CBC ####[facility] Ybhvmubesd6633[address] [place], [place] [address]Dr. Airam DeuceMONO #0.4 103/ulNormal0.3-0.8The [facility] CenterComment on above: Performed By: #### CBC ####[facility] Fntgfzvpsd60[address] [place], [place] [address]Dr.Selenaneil TripathiMonocytes/100 WBC (Bld)6.3 %Normal 1.7-12.0The [facility] CenterComment on above:Performed By: #### CBC ####[facility] Eessndylmp9735[address] [place], [place] [address]Dr. Airam DeuceNEUT #4.5 103/ulNormal1.4-6.5The [facility] CenterComment on above: Performed By: #### CBC ####[facility] Ttmtttpcoi4064[address] [place], [place] [address]Dr.Selenaneil TripathiNeutrophils/100 WBC (Bld)64.5 %Normal 43.0-75.0The [facility] CenterComment on above:Performed By: #### CBC ####[facility] Umebsgzqww7789[address] [place], [place] [address]Dr. Airam DeucePlatelet mean volume (Bld) [Entitic vol]9.3 fLCritically low9.5-13.5 The [facility] CenterComment on above:Performed By: #### CBC ####[facility] Fcqldyhnvp10[address] [place] [address]Dr.Airam TripathiPLT243 103/ggLgjiie457-016Bmn [facility] CenterComment on above:Performed By: #### CBC ####[facility] Atipffczhe9167[address] [place], [place] [address]Dr. Airam TripathiRBC3.31 106/ulCritically low4.20-5.40The [facility] CenterComment on above:Performed By: #### CBC ####[facility] Gffsfoaifv1832[address] [place], [place] [address]Dr.Airam TripathiWBC7.0 103/ulNormal4.0-11.0The [facility] CenterComment on above:Performed By: #### CBC ####[facility] Odvgcztlqa9478[address] [place], [place] [address]Dr.Airam TripathiPROF 14(COMP METB)on 48-72-3131Hinitbs [Mass/Vol]3.3 g/dLCritically low3.4-5.0The [facility] CenterComment on above:Performed By: #### CMP ####[facility] Uyhmmcdsxo3178[address] [place], [place] [address]Dr.Airam Tripathi Albumin/Globulin [Mass ratio]1.1 {ratio}NormalThe [facility] CenterComment on above:Performed By: #### CMP ####[facility] Jbjkccaexg2137[address] [place], [place] [address]Dr.Airam TripathiALP [Catalytic activity/Vol]126 U/L Critically iszs49-076Abq [facility] CenterComment on above:Performed By: #### CMP ####[facility] Rgdqbqbdtn55[address] [place], [place] [address]Dr. Airam TripathiALT [Catalytic activity/Vol]21 U/KTugzek19-84Jcs [facility] Comment on above:Performed By: #### CMP ####[facility] Sdxmnxfcab032[address] [place], [place] [address]Dr.Airam TripathiAnion gap [Moles/Vol]11.8 mmol/LNormalThe [facility] CenterComment on above:Performed By: #### CMP ####[facility] Mzixzczzri3067[address] [place], [place] [address]Dr. Yilan ChangAST [Catalytic activity/Vol]22 U/UHyncsx76-94Kbb [facility] Comment on above:Performed By: #### CMP ####[facility] Swokyfzrpv85[address] [place], [place] [address]Dr.Yilan ChangBilirubin [Mass/Vol]0.3 mg/dL Normal0.2-1.0The [facility] CenterComment on above:Performed By: #### CMP ####[facility] Ktbxbtoxlp1348[address] [place], [place] [address]Dr. Yilan ChangCalcium [Mass/Vol]8.7 mg/dLNormal8.5-10.1The [facility] CenterComment on above:Performed By: #### CMP ####[facility] Ncmtyedfgr9[address] [place], [place] [address]Dr.Yilan ChangChloride [Moles/Vol]102 mmol/LNormal 98-107The [facility] CenterComment on above:Performed By: #### CMP ####[facility] Gjjbnokopy6459[address] [place], [place] [address]Dr.Yilan ChangCO2 [Moles/Vol]25.5 mmol/JKmpbbu22.0-32.0The [facility] CenterComment on above: Performed By: #### CMP ####[facility] Wdarzudgnn12[address] [place], [place] [address]Dr.Yilan ChangCreatinine [Mass/Vol]1.43 mg/dL Critically high0.55-1.02The [facility] CenterComment on above:Performed By: #### CMP ####[facility] Nbxtafbbrt[address] [place], [place] [address]Dr.Yilan ChangEGFR-AF JVPTVYDD27 mL/min/1.03q8Vdqruvinux low>=60The [facility] CenterComment on above:Performed By: #### CMP ####[facility] Xifmmqqdew9[address] [place], [place] [address]Dr.Yilan ChangEGFR-NON AF YZFPZEKR17 mL/min/1.29f9Pifsxcxodb low>=60The [facility] CenterComment on above: Performed By: #### CMP ####[facility] Ovxgxjzqlq[address] [place], [place] [address]Dr.Yilan ChangGlobulin (S) [Mass/Vol]2.9 g/dLNormalThCommunity Memorial HospitalComment on above:Performed By: #### CMP ####[facility] Sjhvvxoiig3155[address] [place], [place] [address]Dr.Yilan ChangGlucose [Mass/Vol]83 mg/iSMkwdje50-575Kur [facility] CenterComment on above:Performed By: #### CMP ####[facility] Ngejophmqh3536[address] [place], [place] [address]Dr.Yilan ChangPotassium [Moles/Vol]4.3 mmol/LNormal3.5-5.1The [facility] CenterComment on above:Performed By: #### CMP ####[facility] Cklvtwnyva6[address] [place], [place] [address]Dr.Yilan ChangProtein [Mass/Vol]6.2 g/dLCritically low6.4-8.2The [facility] CenterComment on above: Performed By: #### CMP ####[facility] Scdqvzzgti01[address] [place], [place] [address]Dr.Yilan ChangSodium [Moles/Vol]135 mmol/LCritically mio358-189Poa [facility] CenterComment on above:Performed By: #### CMP ####[facility] Vdtlthvwym[address] [place], [place] [address]Dr. Yilan ChangUrea nitrogen [Mass/Vol]39.0 mg/dLCritically high7.0-18.0The [facility] CenterComment on above:Performed By: #### CMP ####[facility] Kgjcglrojr[address] [place], [place] [address]Dr.Yilan ChangUrea nitrogen/Creatinine [Mass ratio]27.3 mg/mgNormalThCommunity Memorial HospitalComment on above:Performed By: #### CMP ####[facility] Wxefmpzieh[address] [place], [place] [address]Dr.Selenaneil ChangOSMOLALITYon 25-98-2668Iilstbcvca [Osmolality]292 mosm/jrQdzqpn206-919Jrj [facility] CenterComment on above: Performed By: #### OSMO ####[facility] Cx[address]hnp[address] [place] [address]Dr. Selenaneil ChangCBC AUTO DIFFon 13-21-7862QPEX #0.0 103/ulNormal0.0-0.1The [facility] CenterComment on above:Performed By: #### CBC ####[facility] Mrgxwbqtnl[address] [place] [address]Dr. Selenaneil ChangBasophils/100 WBC (Bld)0.4 %Normal0.2-2.0The [facility] on above:Performed By: #### CBC ####[facility] Lcelfhkkud[address] [place], [place] [address]Dr.Selenalan ChangEO #0.2 103/ulNormal0.0-0.7The [facility] Hospitalment on above:Performed By: #### CBC ####[facility] Qmaxgfvjfv[address] [place], [place] [address]Dr.Airam ChangEosinophils/100 WBC (Bld)3.4 %Normal0.9-7.0The [facility] on above:Performed By: #### CBC ####[facility] Kpuobatonn[address] [place], [place] [address]Dr.Airam ChangErythrocyte distribution width (RBC) [Ratio]13.1 %Normal 11.0-15.0The [facility] Hospitalment on above:Performed By: #### CBC ####[facility] Fsaklkwzek74[address] [place], [place] [address]Dr. Airam ChangHematocrit (Bld) [Volume fraction]31.6 %Critically low36.0-48.0The [facility] Hospitalment on above:Performed By: #### CBC ####[facility] Tamifojmma35[address] [place], [place] [address]Dr.Airam ChangHemoglobin (Bld) [Mass/Vol]9.9 g/dLCritically low12.0-16.0The [facility] CenterComment on above:Performed By: #### CBC ####[facility] Wifpcmiyht94[address] [place], [place] [address]Dr.Airam TripathiIG #0.02 10e3/ulNormal0.00-0.03The [facility] CenterComment on above:Performed By: #### CBC ####[facility] Dvbbasqflk8457[address] [place], [place] [address]Dr.Airam TripathiIG %0.4 %Normal 0.0-0.5The [facility] HospitalComment on above:Performed By: #### CBC ####[facility] Cyoodbfprx1649[address] [place], [place] [address]Dr.Airam DossMPH #1.0 103/ulCritically low1.2-3.8The [facility] HospitalComment on above:Performed By: #### CBC ####[facility] Bqfwcfebpu8003[address] [place], [place] [address]Dr.Airam Dossmphocytes/100 WBC (Bld)17.4 %Critically low20.5-60.0 The [facility] CenterComment on above:Performed By: #### CBC ####[facility] Zwsgvrbgwz80[address] [place], [place] [address]Dr.Airam TripathiMANUAL DIFF REQNONormalThe [facility] CenterComment on above:Performed By: #### CBC ####[facility] Mmnenntsge9699[address] [place], [place] [address]Dr. Airam TripathiST. LUKE'[facility] (RBC) [Entitic mass]30.1 paTxirvs49.7-34.0The [facility] Comment on above:Performed By: #### CBC ####[facility] Hnmyiesxdc2150[address] [place], [place] [address]Dr.Airam TripathiUPSTATE UN[facility] (RBC) [Mass/Vol]31.3 g/dL Ydvgxb37.9-35.2The [facility] CenterComment on above:Performed By: #### CBC ####[facility] Qoxsqlhlor8647[address] [place], [place] [address]Dr. Airam TripathiMCV (RBC) [Entitic vol]96.0 lOKumpfh87.0-99.0The [facility] Comment on above:Performed By: #### CBC ####[facility] Qstajqysii[address] [place] [address]Dr.Airam TripathiMONO #0.5 103/ulNormal0.3-0.8 The [facility] CenterComment on above:Performed By: #### CBC ####[facility] Zqlguyfxpj3497[address] [place], [place] [address]Dr.Airam Tripathi Monocytes/100 WBC (Bld)8.6 %Normal1.7-12.0The [facility] CenterComment on above: Performed By: #### CBC ####[facility] Gurtyelqxy2283[address] [place], [place] [address]Dr.Airam TripathiNEUT #3.9 103/ulNormal1.4-6.5The [facility] CenterComment on above:Performed By: #### CBC ####[facility] Yfinfifque9415[address] [place], [place] [address]Dr.Airam TripathiNeutrophils/100 WBC (Bld)69.8 %Pqzdfc30.0-75.0The [facility] CenterComment on above:Performed By: #### CBC ####[facility] Uvivompily1944[address] [place], [place] [address]Dr.Airam TripathiPlatelet mean volume (Bld) [Entitic vol]9.6 fLNormal9.5-13.5 The [facility] CenterComment on above:Performed By: #### CBC ####[facility] Gpcqtdttse1517[address] [place], [place] [address]Dr.Airam TripathiPLT228 103/ylJhlagc448-564Ahk [facility] CenterComment on above:Performed By: #### CBC ####[facility] Nyrgevhzig9384[address] [place], [place] [address]Dr. Airam TripathiRBC3.29 106/ulCritically low4.20-5.40The [facility] CenterComment on above:Performed By: #### CBC ####[facility] Nxmfpccgpg4[address] [place], [place] [address]Dr.Airam ChangWBC5.6 103/ulNormal4.0-11.0The [facility] CenterComment on above:Performed By: #### CBC ####[facility] Fdykvitxfi2025[address] [place], [place] [address]Dr.Airam TripathiPROF 14(COMP METB)on 36-96-0710Ukorcwh [Mass/Vol]3.1 g/dLCritically low3.4-5.0The [facility] CenterComment on above:Performed By: #### CMP ####[facility] Qdtzvqhulv0380[address] [place], [place] [address]Dr.Selenaneil Tripathi Albumin/Globulin [Mass ratio]1.0 {ratio}NormalThe [facility] CenterComment on above:Performed By: #### CMP ####[facility] Gtoasznqzi309[address] [place], [place] [address]Dr.Airam ChangALP [Catalytic activity/Vol]131 U/L Critically ksms65-684Esl [facility] CenterComment on above:Performed By: #### CMP ####[facility] Omkpcrzmaw3047[address] [place], [place] [address]Dr. Airam DeuceALT [Catalytic activity/Vol]19 U/AWtmthg17-39Jsp [facility] Comment on above:Performed By: #### CMP ####[facility] Rzacuyrrhw6106[address] [place], [place] [address]Dr.Airam DeuceAnion gap [Moles/Vol]12.9 mmol/LNormalThe [facility] CenterComment on above:Performed By: #### CMP ####[facility] Bmtowovxkz6027[address] [place], [place] [address]Dr. Airam ChangAST [Catalytic activity/Vol]21 U/BGiuofz80-85Ibo [facility] Comment on above:Performed By: #### CMP ####[facility] Zygffpklmx756[address] [place], [place] [address]Dr.Airam ChangBilirubin [Mass/Vol]0.2 mg/dL Normal0.2-1.0The [facility] CenterComment on above:Performed By: #### CMP ####[facility] Sppegnvdfb[address] [place] [address]Dr. Yilan ChangCalcium [Mass/Vol]8.4 mg/dLCritically low8.5-10.1The [facility] CenterComment on above:Performed By: #### CMP ####[facility] Viwqjjmgwz6499[address] [place], [place] [address]Dr.Yilan ChangChloride [Moles/Vol]103 mmol/SLzeqmi27-819Qso [facility] CenterComment on above:Performed By: #### CMP ####[facility] Ahysxubewg014[address] [place], [place] [address]Dr.Yilan ChangCO2 [Moles/Vol]23.7 mmol/DZumzqy27.0-32.0The [facility] CenterComment on above:Performed By: #### CMP ####[facility] Qcymodqzhc4104[address] [place], [place] [address]Dr.Yilan ChangCreatinine [Mass/Vol]1.37 mg/dLCritically high0.55-1.02The [facility] CenterComment on above:Performed By: #### CMP ####[facility] Bqczmzvgxa7368[address] [place], [place] [address]Dr.Yilan ChangEGFR-AF NJOKPABQ96 mL/min/1.73m2 Critically low>=60The [facility] CenterComment on above:Performed By: #### CMP ####[facility] Oyevizwddg192[address] [place], [place] [address]Dr. Yilan ChangEGFR-NON AF KXTCTIAL64 mL/min/1.28b8Ejeyipvgkg low>=60The [facility] CenterComment on above:Performed By: #### CMP ####[facility] Tvditqhjjm9832[address] [place], [place] [address]Dr.Yilan ChangGlobulin (S) [Mass/Vol]3.1 g/dLNormalThe [facility] CenterComment on above:Performed By: #### CMP ####[facility] Lakpyzboiw794[address] [place], [place] [address]Dr.Yilan ChangGlucose [Mass/Vol]88 mg/bPHfumgh95-901Cut [facility] Comment on above:Performed By: #### CMP ####[facility] Bmrubbgjbx1724[address] [place], [place] [address]Dr.Yilan ChangPotassium [Moles/Vol]4.6 mmol/LNormal3.5-5.1The [facility] CenterComment on above:Performed By: #### CMP ####[facility] Yykpcnjxkl693[address] [place], [place] [address]Dr. Yilan ChangProtein [Mass/Vol]6.2 g/dLCritically low6.4-8.2The [facility] Comment on above:Performed By: #### CMP ####[facility] Luteigdmhe4436[address] [place], [place] [address]Dr.Yilan ChangSodium [Moles/Vol]135 mmol/L Critically ztn407-797Wcr [facility] CenterComment on above:Performed By: #### CMP ####[facility] Argqnltmms8409[address] [place], [place] [address]Dr. Airam ChangUrea nitrogen [Mass/Vol]34.0 mg/dLCritically high7.0-18.0The [facility] CenterComment on above:Performed By: #### CMP ####[facility] Gyixnsktao6394[address] [place], [place] [address]Dr.Selenalan ChangUrea nitrogen/Creatinine [Mass ratio]24.8 mg/mgNormalThe [facility] CenterComment on above:Performed By: #### CMP ####[facility] Tjnoxvidaw[address] [place], [place] [address]Dr.Airam ChangOSMOLALITYon 08-95-3057Riuxdqtlrz [Osmolality]276 mosm/gsTwvhla368-807Uyd [facility] CenterComment on above: Performed By: #### OSMO ####[facility] Smdcnxcwpd1606[address] [place], [place] [address]Dr. Selenalan ChangMRI CSPINE WO CONon 05-49-9006ERU CSPINE WO CONNormalThe [facility] CenterCB AUTO DIFFon 79-79-0389KUCZ #0.0 103/ulNormal0.0-0.1The [facility] CenterComment on above:Performed By: #### CBC ####[facility] [address]vrmuukbuz[address] [place] [id number]. Yilan ChangBasophils/100 WBC (Bld)0.2 %Normal0.2-2.0The [facility] CenterComment on above:Performed By: #### CBC ####[facility] Tvzikkjueo9984[address] [place], [place] [address]Dr.Yilan ChangEO #0.2 103/ulNormal0.0-0.7The [facility] CenterComment on above:Performed By: #### CBC ####[facility] Kjwkjocfjh6874[address] [place], [place] [address]Dr.Yilan ChangEosinophils/100 WBC (Bld)2.1 %Normal0.9-7.0The [facility] CenterCombaraga [facility] on above:Performed By: #### CBC ####[facility] Hzjvdivkuy1747[address] [place], [place] [address]Dr.Yilan ChangErythrocyte distribution width (RBC) [Ratio]12.7 %Normal 11.0-15.0The [facility] CenterComment on above:Performed By: #### CBC ####[facility] Wnfwxuhujx6177[address] [place], [place] [address]Dr. Sleenalan ChangHematocrit (Bld) [Volume fraction]32.2 %Critically low36.0-48.0The [facility] CenterCombaraga [facility] memorial hospital on above:Performed By: #### CBC ####[facility] Bhlnmaenkh6329[address] [place], [place] [address]Dr.Yilan ChangHemoglobin (Bld) [Mass/Vol]10.4 g/dLCritically low12.0-16.0The [facility] CenterComment on above:Performed By: #### CBC ####[facility] Gyjsccsctb1720[address] [place], [place] [address]Dr.Yilan ChangIG #0.03 10e3/ulNormal0.00-0.03The [facility] CenterCombaraga [facility] memorial hospital on above:Performed By: #### CBC ####[facility] Gxrjhkmlyp9739[address] [place], [place] [address]Dr.Yilan ChangIG %0.3 %Normal 0.0-0.5The [facility] HospitalComment on above:Performed By: #### CBC ####[facility] Wssowvfpci[address] [place] [address]Dr.Airam DossMPH #1.4 103/ulNormal1.2-3.8The [facility] CenterComment on above:Performed By: #### CBC ####[facility] Ztijvgiwkt75[address] [place] [address]Dr.Airam TripathiLymphocytes/100 WBC (Bld)16.0 %Critically low20.5-60.0The [facility] CenterComment on above:Performed By: #### CBC ####[facility] Cefljdjjlc7713[address] [place], [place] [address]Dr.Airam TripathiMANUAL DIFF REQ NONormalThe [facility] CenterComment on above:Performed By: #### CBC ####[facility] Pjmhiskgyf360[address] [place], [place] [address]Dr. Airam DeuceH (RBC) [Entitic mass]30.0 xzOyfkjp00.7-34.0[facility] Comment on above:Performed By: #### CBC ####[facility] Jlzzcfnkii0185[address] [place], [place] [address]Dr.Airam TriapthiMCHC (RBC) [Mass/Vol]32.3 g/dL Kabmpr59.9-35.2The [facility] CenterComment on above:Performed By: #### CBC ####[facility] Dxcrexkxzm4006[address] [place], [place] [address]Dr. Airam TripathiV (RBC) [Entitic vol]92.8 dARgmmey42.0-99.0The [facility] Comment on above:Performed By: #### CBC ####[facility] Stngygbjju5029[address] [place], [place] [address]Dr.Airam DeuceMONO #0.4 103/ulNormal0.3-0.8 The [facility] CenterComment on above:Performed By: #### CBC ####[facility] Wjxggjgcsc5659[address] [place], [place] [address]DrKiannaSelenaneil Tripathi Monocytes/100 WBC (Bld)4.9 %Normal1.7-12.0The [facility] CenterComment on above: Performed By: #### CBC ####[facility] Zhowulmduq6359[address] [place], [place] [address]Dr.Airam TripathiNEUT #6.6 103/ulCritically high1.4-6.5 The [facility] CenterComment on above:Performed By: #### CBC ####[facility] Hadqoqfokh659[address] [place], [place] [address]Dr.Airam Tripathi Neutrophils/100 WBC (Bld)76.5 %Critically high43.0-75.0The [facility] Comment on above:Performed By: #### CBC ####[facility] Ktckatiqco9299[address] [place], [place] [address]Dr.Airam TripathiPlatelet mean volume (Bld) [Entitic vol]9.8 fLNormal9.5-13.5The [facility] CenterComment on above:Performed By: #### CBC ####[facility] Bjlzgvlovt0738[address] [place], [place] [address]Dr.Airam TripathiPLT262 103/mlFxfsow878-745Bxb [facility] CenterComment on above:Performed By: #### CBC ####[facility] Pcuavgkupf[address] [place], [place] [address]Dr.Airam TripathiRBC3.47 106/ulCritically low4.20-5.40The [facility] CenterComment on above:Performed By: #### CBC ####[facility] Poapdfaxpp8325[address] [place], [place] [address]Dr.Airam TripathiWBC8.7 103/ul Normal4.0-11.0The [facility] CenterComment on above:Performed By: #### CBC ####[facility] Ccthmwigob7177[address] [place], [place] [address]Dr. Airam DeucePROF 14(COMP METB)on 84-56-3657Knygpkq [Mass/Vol]3.3 g/dLCritically low3.4-5.0The [facility] CenterComment on above:Performed By: #### CMP ####[facility] Jytwjyobmm1530[address] [place], [place] [address]Dr. Yilan ChangAlbumin/Globulin [Mass ratio]1.1 {ratio}NormalThe [facility] Comment on above:Performed By: #### CMP ####[facility] Gdeuvuptsf[address] [place] [address]Dr.Yilan ChangALP [Catalytic activity/Vol] 114 U/HYcqpwc15-016Tjl [facility] CenterComment on above:Performed By: #### CMP ####[facility] Clcpvtgnbv5[address] [place] [address]Dr. Yilan ChangALT [Catalytic activity/Vol]20 U/ZDsyrwf86-78Yhj [facility] Comment on above:Performed By: #### CMP ####[facility] Liyqmivckf9023[address] [place], [place] [address]Dr.Yilan ChangAnion gap [Moles/Vol]14.7 mmol/LNormalThe [facility] CenterComment on above:Performed By: #### CMP ####[facility] Fmlmzepbqj832[address] [place], [place] [address]Dr. Yilan ChangAST [Catalytic activity/Vol]22 U/FIzhoqo85-98Rus [facility] Comment on above:Performed By: #### CMP ####[facility] Istfqvjhbd7728[address] [place], [place] [address]Dr.Yilan ChangBilirubin [Mass/Vol]0.3 mg/dL Normal0.2-1.0The [facility] CenterComment on above:Performed By: #### CMP ####[facility] Rsbwbpfsqh607[address] [place], [place] [address]Dr. Yilan ChangCalcium [Mass/Vol]8.8 mg/dLNormal8.5-10.1The [facility] CenterComment on above:Performed By: #### CMP ####[facility] Ctenovdvmj2237[address] [place], [place] [address]Dr.Yilan ChangChloride [Moles/Vol]97 mmol/LCritically slu75-471Ijn [facility] CenterComment on above:Performed By: #### CMP ####[facility] Llrnnspelp8845[address] [place], [place] [address]Dr. Yilan ChangCO2 [Moles/Vol]24.5 mmol/NDxanbp73.0-32.0The [facility] CenterComment on above:Performed By: #### CMP ####[facility] Wzckpklruo5550[address] [place], [place] [address]Dr.Airam ChangCreatinine [Mass/Vol]1.28 mg/dL Critically high0.55-1.02The [facility] CenterComment on above:Performed By: #### CMP ####[facility] Dtcttisanb0926[address] [place], [place] [address]Dr.Yilan ChangEGFR-AF PUBQWXLO50 mL/min/1.76b4Zbboehvhih low>=60The [facility] CenterComment on above:Performed By: #### CMP ####[facility] Orxrdslgxq7820[address] [place], [place] [address]Dr.Yilan ChangEGFR-NON AF RBJWMPHW72 mL/min/1.88f3Xzapvpfvwg low>=60The [facility] CenterComment on above: Performed By: #### CMP ####[facility] Qcioelshlv756[address] [place], [place] [address]Dr.Airam ChangGlobulin (S) [Mass/Vol]3.1 g/dLNormalThe [facility] CenterComment on above:Performed By: #### CMP ####[facility] Lhhmfpqpdd2457[address] [place], [place] [address]Dr.Selenalan ChangGlucose [Mass/Vol]87 mg/bFTtshzg73-877Vah [facility] CenterComment on above:Performed By: #### CMP ####[facility] Vataquizvo9190[address] [place], [place] [address]Dr.Selenalan ChangPotassium [Moles/Vol]4.2 mmol/LNormal3.5-5.1The [facility] CenterComment on above:Performed By: #### CMP ####[facility] Qcyvdvmfsg[address] [place], [place] [address]Dr.Yilan ChangProtein [Mass/Vol]6.4 g/dLNormal6.4-8.2The [facility] CenterComment on above:Performed By: #### CMP ####[facility] Maesxttmmp5[address] [place], [place] [address]Dr.Airam ChangSodium [Moles/Vol]132 mmol/LCritically lbw722-672Ght [facility] CenterComment on above:Performed By: #### CMP ####[facility] Ptwplkfsjz6169[address] [place], [place] [address]Dr.Airam ChangUrea nitrogen [Mass/Vol]36.0 mg/dLCritically high7.0-18.0The [facility] CenterComment on above:Performed By: #### CMP ####[facility] Htrmrxffcf9575[address] [place], [place] [address]Dr.Airam ChangUrea nitrogen/Creatinine [Mass ratio] 28.1 mg/mgNoGood Samaritan HospitalComment on above:Performed By: #### CMP ####[facility] Fkavvlxzdb9923[address] [place], [place] [address]Dr. Airam ChangXR DEXA BONE DENSITYon 97-77-0627SR DEXA BONE DENSITYNoGood Samaritan HospitalOSMOLALITYon 10-64-1609Haahsvhhkw [Osmolality]277 mosm/kgNormal 275-295The [facility] CenterComment on above:Performed By: #### OSMO ####[facility] Wwhkhncjju7636[address] [place], [place] [address]Dr. Airam TripathiCBC AUTO DIFFon 68-48-5391RMJA #0.0 103/ulNormal0.0-0.1[facility] HospitalComment on above:Performed By: #### CBC ####[facility] Hzllrxdgrr8545[address] [place], [place] [address]Dr.Airam ChangBasophils/100 WBC (Bld)0.5 %Normal0.2-2.0The [facility] CenterComment on above:Performed By: #### CBC ####[facility] Ldvqvratvp9348[address] [place], [place] [address]Dr.Selenalan ChangEO #0.2 103/ulNormal0.0-0.7The [facility] CenterComment on above:Performed By: #### CBC ####[facility] Oadabfpozz9528[address] [place], [place] [address]Dr.Yilan ChangEosinophils/100 WBC (Bld)3.1 %Normal 0.9-7.0The [facility] CenterComment on above:Performed By: #### CBC ####[facility] Odbdtituyu2839[address] [place], [place] [address]Dr.Airam Tripathi Erythrocyte distribution width (RBC) [Ratio]12.5 %Kjpxka62.0-15.0The [facility] CenterComment on above:Performed By: #### CBC ####[facility] Yeowmgaxvs5518[address] [place], [place] [address]Dr.Airam TripathiHematocrit (Bld) [Volume fraction]34.4 %Critically low36.0-48.0The [facility] CenterComment on above:Performed By: #### CBC ####[facility] Oyxkyadrpi9337[address] [place], [place] [address]Dr.Airam ChangHemoglobin (Bld) [Mass/Vol]11.0 g/dL Critically low12.0-16.0The [facility] CenterComment on above:Performed By: #### CBC ####[facility] Rkmspvodtq7664[address] [place], [place] [address]Dr. Airam ChangIG #0.03 10e3/ulNormal0.00-0.03The [facility] CenterComment on above: Performed By: #### CBC ####[facility] Cqhwuauisp27[address] [place], [place] [address]Dr.Airam ChangIG %0.5 %Normal0.0-0.5The [facility] CenterComment on above:Performed By: #### CBC ####[facility] Ozcspyecfa8612[address] [place], [place] [address]Dr.Airam ChangLYMPH #1.6 103/ulNormal1.2-3.8The [facility] CenterComment on above:Performed By: #### CBC ####[facility] Knifuljebq2486[address] [place], [place] [address]Dr. Airam ChangLymphocytes/100 WBC (Bld)28.0 %Gpkcyk52.5-60.0The [facility] Comment on above:Performed By: #### CBC ####[facility] [address]paudd[address] [place] [address]Dr.Airam TripathiMANUAL DIFF REQNONormalThe [facility] CenterComment on above:Performed By: #### CBC ####[facility] Vqbkmojxat[address] [place] [address]Dr.Airam TripathiH (RBC) [Entitic mass]30.1 ooLlusjb50.7-34.0The [facility] HospitalComment on above: Performed By: #### CBC ####[facility] Ckrknethrc8488[address] [place], [place] [address]Dr.Airam TripathiMCHC (RBC) [Mass/Vol]32.0 g/dLNormal 29.9-35.2The [facility] CenterComment on above:Performed By: #### CBC ####[facility] Rxyzntcune2074[address] [place], [place] [address]Dr. Airam TripathiV (RBC) [Entitic vol]94.0 tFTjhkdc86.0-99.0The [facility] Comment on above:Performed By: #### CBC ####[facility] Eoybarnxbq9866[address] [place], [place] [address]Dr.Airam TripathiMONO #0.4 103/ulNormal0.3-0.8 The [facility] CenterComment on above:Performed By: #### CBC ####[facility] Kqxboafrww4564[address] [place], [place] [address]Dr.Airam Tripathi Monocytes/100 WBC (Bld)7.5 %Normal1.7-12.0The [facility] CenterComment on above: Performed By: #### CBC ####[facility] Keyowavhpr2[address] [place], [place] [address]Dr.Airam DeuceNEUT #3.5 103/ulNormal1.4-6.5The [facility] CenterComment on above:Performed By: #### CBC ####[facility] Prvnoilckw88[address] [place], [place] [address]Dr.Airam DeuceNeutrophils/100 WBC (Bld)60.4 %Yqnzwf87.0-75.0The [facility] CenterComment on above:Performed By: #### CBC ####[facility] [address]wlahyt[address] [place] [address]Dr.Airam DeucePlatelet mean volume (Bld) [Entitic vol]10.0 fLNormal9.5-13.5 The [facility] CenterComment on above:Performed By: #### CBC ####[facility] [address]fswmog[address] [place] [address]Dr.Airam YnpztOJB284 103/wxTigmbf729-502Cbw [facility] CenterComment on above:Performed By: #### CBC ####[facility] Mxfcxxenyr767840 [address] [place], [place] [address]Dr. Airam TripathiRBC3.66 106/ulCritically low4.20-5.40The [facility] [place] [facility] CenterComment on above:Performed By: #### CBC ####[facility] [place] [facility] Bcbgzxnlkp90[address] [place], [place] [address]Dr.Airam TripathiWBC5.7 103/ulNormal4.0-11.0The [facility] [place] [facility] CenterComment on above:Performed By: #### CBC ####[facility] [place] [facility] Pnfitttfdo[address] [place], [place] [address]Dr.Selenaneil TripathiPROF 14(COMP METB)on 66-33-8368Wdanzun [Mass/Vol]3.3 g/dLCritically low3.4-5.0The [facility] [place] [facility] CenterComment on above:Performed By: #### CMP ####[facility] [place] [facility] Ruajowsjow[address] [place], [place] [address]Dr.Airam Tripathi Albumin/Globulin [Mass ratio]1.0 {ratio}NormalThe [facility] [place] [facility] CenterComment on above:Performed By: #### CMP ####[facility] [place] [facility] Thydblqpjm1333[address] [place], [place] [address]Dr.Airam TripathiALP [Catalytic activity/Vol]138 U/L Critically pxtt45-835Dkr [facility] [place] [facility] CenterComment on above:Performed By: #### CMP ####[facility] [place] [facility] Ofkyeolysq7790[address] [place], [place] [address]Dr. Airam TripathiALT [Catalytic activity/Vol]25 U/TFkzsog42-52Wzi [facility] [place] [facility] Comment on above:Performed By: #### CMP ####[facility] [place] [facility] [address]ef[address] [place] [id number].Yilan ChangAnion gap [Moles/Vol]14.0 mmol/LNormalThe [facility] [place] [facility] CenterComment on above:Performed By: #### CMP ####[facility] [place] [facility] W[address]wyntzth40[address] [place] [id number]. Yilan ChangAST [Catalytic activity/Vol]19 U/NGwvjse03-07Fel [facility] [place] [facility] Comment on above:Performed By: #### CMP ####[facility] [place] [facility] Pib[address]fwsye[address] [place] [address]Dr.Yilan ChangBilirubin [Mass/Vol]0.3 mg/dL Normal0.2-1.0The [facility] [place] [facility] CenterComment on above:Performed By: #### CMP ####[facility] [place] [facility] Vhodhkyhnq[address] [place], [place] [address]Dr. Yilan ChangCalcium [Mass/Vol]8.7 mg/dLNormal8.5-10.1The [facility] [place] [facility] CenterComment on above:Performed By: #### CMP ####[facility] [place] [facility] Ghbcroktbq2099[address] [place], [place] [address]Dr.Yilan ChangChloride [Moles/Vol]99 mmol/LNormal 98-107The [facility] [place] [facility] CenterComment on above:Performed By: #### CMP ####[facility] [place] [facility] Nqnrcbxvqm85[address] [place] [address]Dr.Yilan ChangCO2 [Moles/Vol]25.4 mmol/KVmwdbk46.0-32.0The [facility] [place] [facility] CenterComment on above: Performed By: #### CMP ####[facility] [place] [facility] Lldzvxxjni[address] [place], [place] [id number].Yilan ChangCreatinine [Mass/Vol]1.22 mg/dL Critically high0.55-1.02The [facility] [place] [facility] CenterComment on above:Performed By: #### CMP ####[facility] [place] [facility] Nwohdigxoh5866[address] [place], [place] [address]Dr.Yilan ChangEGFR-AF BGQXWOHO10 mL/min/1.08e4Iaaxausaks low>=60The [facility] [place] [facility] CenterComment on above:Performed By: #### CMP ####[facility] [place] [facility] Cynwtcmjkb7247[address] [place], [place] [address]Dr.Selenalan ChangEGFR-NON AF MLUXQHIN74 mL/min/1.16a5Jbrnuzsdwj low>=60The [facility] [place] [facility] CenterComment on above: Performed By: #### CMP ####[facility] Fwgddhqitc8136[address] [place], [place] [address]Dr.Airam ChangGlobulin (S) [Mass/Vol]3.2 g/dLNormalThe [facility] [place] [facility] CenterComment on above:Performed By: #### CMP ####[facility] Qpaqylwboq3186[address] [place], [place] [address]Dr.Airam ChangGlucose [Mass/Vol]111 mg/dLCritically emnk14-057Ebj [facility] [place] [facility] CenterComment on above: Performed By: #### CMP ####[facility] Hnkyzmbbzl196[address] [place], [place] [address]Dr.Airam ChangPotassium [Moles/Vol]4.4 mmol/LNormal 3.5-5.1The [facility] [place] [facility] CenterComment on above:Performed By: #### CMP ####[facility] Tdoeszgjzb6707[address] [place], [place] [address]Dr.Selenaneil Tripathi Protein [Mass/Vol]6.5 g/dLNormal6.4-8.2The [facility] [place] [facility] CenterComment on above: Performed By: #### CMP ####[facility] Tbkybinjvu2047[address] [place], [place] [address]Dr.Selenaneil ChangSodium [Moles/Vol]134 mmol/LCritically tst835-109Aij [facility] [place] [facility] CenterComment on above:Performed By: #### CMP ####[facility] Coimgulklc6801[address] [place], [place] [address]Dr. Selenalan ChangUrea nitrogen [Mass/Vol]27.0 mg/dLCritically high7.0-18.0The [facility] [place] [facility] CenterComment on above:Performed By: #### CMP ####[facility] Qsdpboquta2853[address] [place], [place] [address]Dr.Yilan ChangUrea nitrogen/Creatinine [Mass ratio]22.1 mg/mgNoGood Samaritan HospitalComment on above:Performed By: #### CMP ####[facility] [place] [facility] Pnsrvjqsqp20[address] [place], [place] [address]BwBroderick TripathiCT CERVICAL SPINE WITHOUT CONTRASTon 97-79-7457QI CERVICAL SPINE WITHOUT CONTRASTUnOhioHealth [facility] Hospital Department of Radiology [address] [place] [address] Patient Name: MABEL MOSER : 1960 Sex: F Age: Race: White Pt. Location: 29 Patient Status: D Ordered Date: 08/17/2021 10:00:00 AM Completed Date: 01/10/2022 10:24 AM Requesting Provider: ROBERT JOHNSTON Attending Provider: ROBERT JOHNSTON Report Copy To: YURI SANTANA Signs & Symptoms: M54.12 Radiculopathy, cervical region I10 History: [place] seeing Dr. Johnston after Comments: Exam: CT [...] achievable. Electronically signed: Ayleen Ny. Transcribed by: [email or web address], User Resident: Electronically Signed by: AYLEEN [place] @ 01/12/2022 12:32 PMNormalThe [facility] CenterOSMOLALITYon 32-49-9770Cktejydnwd [Osmolality]286 mosm/jsSavwem765-788Ire [facility] [place] [facility] CenterComment on above:Performed By: #### OSMO ####[facility] [address]vcgxtvn[address] [place] [address]DrKianna TripathiCB AUTO DIFFon 21-28-2576ZIDB #0.0 103/ulNormal0.0-0.1The [facility] [place] [facility] CenterComment on above:Performed By: #### CBC ####[facility] Jrdcyugltf[address] [place] [address]DrBroderick TripathiBasophils/100 WBC (Bld)0.3 %Normal0.2-2.0The [facility] [place] [facility] CenterComment on above:Performed By: #### CBC ####[facility] [place] [facility] Ephiyrvjcz64[address] [place] [address]DrBroderick ChangEO #0.2 103/ulNormal0.0-0.7The [facility] HospitalComment on above:Performed By: #### CBC ####[facility] Kmgwegsibu9745[address] [place], [place] [address]Dr.Airam ChangEosinophils/100 WBC (Bld)4.1 %Normal 0.9-7.0The [facility] HospitalComment on above:Performed By: #### CBC ####[facility] Jtiiodrqmz8733[address] [place], [place] [address]Dr.Airam Tripathi Erythrocyte distribution width (RBC) [Ratio]12.9 %Dmnlqr19.0-15.0The [facility] HospitalComment on above:Performed By: #### CBC ####[facility] Kpwkvwkslj9601[address] [place], [place] [address]Dr.Airam ChangHematocrit (Bld) [Volume fraction]34.2 %Critically low36.0-48.0The [facility] [place] [facility] CenterComment on above:Performed By: #### CBC ####[facility] Efrdmbzspc0939[address] [place], [place] [address]Dr.Airam ChangHemoglobin (Bld) [Mass/Vol]10.6 g/dL Critically low12.0-16.0The [facility] [place] [facility] CenterComment on above:Performed By: #### CBC ####[facility] Ixhtddorju9585[address] [place], [place] [address]Dr. Airam ChangIG #0.03 10e3/ulNormal0.00-0.03The [facility] HospitalComment on above: Performed By: #### CBC ####[facility] [place] [facility] Adlmmljzyk8727[address] [place], [place] [address]Dr.Airam ChangIG %0.5 %Normal0.0-0.5The [facility] HospitalComment on above:Performed By: #### CBC ####[facility] Zvvbigezuc[address] [place], [place] [address]Dr.Airam ChangLYMPH #1.1 103/ulCritically low1.2-3.8The [facility] [place] [facility] CenterComment on above:Performed By: #### CBC ####[facility] Zpalttldsq839[address] [place], [place] [address]Dr.Airam TripathiLymphocytes/100 WBC (Bld)18.2 %Critically low20.5-60.0The [facility] [place] [facility] CenterComment on above:Performed By: #### CBC ####[facility] Yts[address]flswl[address] [place] [address]Dr.Airam TripathiMANUAL DIFF REQ NONormalThe [facility] [place] [facility] CenterComment on above:Performed By: #### CBC ####[facility] Klqxhcirnk3094[address] [place], [place] [address]Dr. Airam TripathiH (RBC) [Entitic mass]29.6 obIsaqkm53.7-34.0The [facility] Comment on above:Performed By: #### CBC ####[facility] Alahsdhqdw1866[address] [place], [place] [address]Dr.Airam TripathiHC (RBC) [Mass/Vol]31.0 g/dL Ycpejx48.9-35.2The [facility] [place] [facility] CenterComment on above:Performed By: #### CBC ####[facility] Ybkyevwcnn4184[address] [place], [place] [address]Dr. Airam TripathiV (RBC) [Entitic vol]95.5 nEGnroji89.0-99.0The [facility] Comment on above:Performed By: #### CBC ####[facility] Ybtcgmudzj2263[address] [place], [place] [address]Dr.Airam TripathiMONO #0.5 103/ulNormal0.3-0.8 The [facility] [place] [facility] CenterComment on above:Performed By: #### CBC ####[facility] Vpzblehnlv6528[address] [place], [place] [address]Dr.Airam Tripathi Monocytes/100 WBC (Bld)8.5 %Normal1.7-12.0The [facility] [place] [facility] CenterComment on above: Performed By: #### CBC ####[facility] Xsuxhhranx999[address] [place], [place] [address]Dr.Airam TripathiNEUT #4.0 103/ulNormal1.4-6.5The [facility] [place] [facility] CenterComment on above:Performed By: #### CBC ####[facility] [address]wjipkmq[address] [place] [address]Dr.Airam TripathiNeutrophils/100 WBC (Bld)68.4 %Extgsj59.0-75.0The [facility] [place] [facility] CenterComment on above:Performed By: #### CBC ####[facility] Zmuhvchwih9829[address] [place], [place] [address]Dr.Airam TripathiPlatelet mean volume (Bld) [Entitic vol]10.1 fLNormal9.5-13.5 The [facility] [place] [facility] CenterComment on above:Performed By: #### CBC ####[facility] [place] [facility] Rwfewkrpsy9318[address] [place], [place] [address]Dr.Airam ShcnaJJS260 103/rcWwrdxg155-087Uyv [facility] [place] [facility] CenterComment on above:Performed By: #### CBC ####[facility] [place] [facility] Icgyaeeqgr4046[address] [place], [place] [address]Dr. Airam TripathiRBC3.58 106/ulCritically low4.20-5.40The [facility] [place] [facility] CenterComment on above:Performed By: #### CBC ####[facility] Qhlqvaxdud4606[address] [place], [place] [address]Dr.Airam TripathiWBC5.9 103/ulNormal4.0-11.0The [facility] [place] [facility] CenterComment on above:Performed By: #### CBC ####[facility] [place] [facility] Ksbyiocmra056[address] [place], [place] [address]Dr.Airam TripathiMG MAMM RT DIAG FUon 55-62-2794XT MAMM RT DIAG FUNormalThe [facility] [place] [facility] CenterPROF 14(COMP METB)on 43-80-7889Meurazp [Mass/Vol]3.1 g/dLCritically low3.4-5.0The [facility] Comment on above:Performed By: #### CMP ####[facility] Fisnoefnun4929[address] [place], [place] [address]Dr.Airam TripathiAlbumin/Globulin [Mass ratio] 1.0 {ratio}NormalThe [facility] [place] [facility] CenterComment on above:Performed By: #### CMP ####[facility] Vcsffdxdrg9332[address] [place], [place] [address]Dr. Yilan ChangALP [Catalytic activity/Vol]143 U/LCritically bhnu89-490Xvm [facility] [place] [facility] CenterComment on above:Performed By: #### CMP ####[facility] Sullschwbp6050[address] [place], [place] [address]Dr.Yineil ChangALT [Catalytic activity/Vol]23 U/SNornzy73-61Xje [facility] [place] [facility] CenterComment on above:Performed By: #### CMP ####[facility] Rdjnxvfxsv0499[address] [place], [place] [address]Dr.Airam ChangAnion gap [Moles/Vol]13.2 mmol/LNormalThe [facility] Comment on above:Performed By: #### CMP ####[facility] Xhptwuikjp6775[address] [place], [place] [address]Dr.Yineil ChangAST [Catalytic activity/Vol]20 U/ZRqmrar80-70Cgv [facility] [place] [facility] CenterComment on above:Performed By: #### CMP ####[facility] Nqgsleciga1998[address] [place], [place] [address]Dr. Airam ChangBilirubin [Mass/Vol]0.3 mg/dLNormal0.2-1.0The [facility] Comment on above:Performed By: #### CMP ####[facility] Vxrofsgqxc400[address] [place], [place] [address]Dr.Yineil ChangCalcium [Mass/Vol]8.2 mg/dL Critically low8.5-10.1The [facility] [place] [facility] CenterComment on above:Performed By: #### CMP ####[facility] Mbhllccaus0189[address] [place], [place] [address]Dr. Yineil ChangChloride [Moles/Vol]100 mmol/TLtqsyf60-083Pnr [facility] Comment on above:Performed By: #### CMP ####[facility] Nuswcadiel8126[address] [place], [place] [address]Dr.Yilan ChangCO2 [Moles/Vol]26.0 mmol/L Tziupy20.0-32.0The [facility] [place] [facility] CenterComment on above:Performed By: #### CMP ####[facility] Quupdggfsi7286[address] [place], [place] [address]Dr. Yilan ChangCreatinine [Mass/Vol]1.52 mg/dLCritically high0.55-1.02The [facility] [place] [facility] CenterComment on above:Performed By: #### CMP ####[facility] Noshapjhfi0318[address] [place], [place] [address]Dr.Airam ChangEGFR-AF TSODDZBW35 mL/min/1.06b0Ixifoylmwv low>=60The [facility] [place] [facility] CenterComment on above: Performed By: #### CMP ####[facility] Cbjrrtkppo7055[address] [place], [place] [address]Dr.Airam ChangEGFR-NON AF SMYESFFL69 mL/min/1.73m2 Critically low>=60The [facility] [place] [facility] CenterComment on above:Performed By: #### CMP ####[facility] Lpwfwbbxfs7676[address] [place], [place] [address]Dr. Airam TripathiGlobulin (S) [Mass/Vol]3.2 g/dLNormalThCommunity Memorial HospitalComment on above:Performed By: #### CMP ####[facility] Hbgrxrhcro116[address] [place], [place] [address]Dr.Airam TripathiGlucose [Mass/Vol]84 mg/rZOothne06-235 The [facility] [place] [facility] CenterComment on above:Performed By: #### CMP ####[facility] Cmpbyffras6936[address] [place], [place] [address]Dr.Airam Tripathi Potassium [Moles/Vol]4.2 mmol/LNormal3.5-5.1[facility] HospitalComment on above:Performed By: #### CMP ####[facility] Nebdoymcxe9770[address] [place], [place] [address]Dr.Airam TripathiProtein [Mass/Vol]6.3 g/dLCritically low 6.4-8.2[facility] HospitalComment on above:Performed By: #### CMP ####[facility] Yvqiwzxalc9879[address] [place], [place] [address]Dr.Airam Tripathi Sodium [Moles/Vol]135 mmol/LCritically hcv444-027Wok [facility] [place] [facility] CenterComment on above:Performed By: #### CMP ####[facility] Mjiefccyrn7848[address] [place], [place] [address]Dr.Yilan ChangUrea nitrogen [Mass/Vol]36.0 mg/dL Critically high7.0-18.0The [facility] [place] [facility] CenterComment on above:Performed By: #### CMP ####[facility] Tswwtfnirx5864[address] [place], [place] [address]Dr. Airam ChangUrea nitrogen/Creatinine [Mass ratio]23.7 mg/mgNoGood Samaritan HospitalComment on above:Performed By: #### CMP ####[facility] Mtxwnafkqz1480[address] [place], [place] [address]Dr.Selenalan ChangUS BREAST RIGHT LIMITEDon 30-04-8433PV BREAST RIGHT LIMITEDNoMemorial Hospital HospitalOSMOLALITY on 99-98-7211Ontdkquncu [Osmolality]280 mosm/axFxyigh668-794Axw [facility] [place] [facility] CenterComment on above:Performed By: #### OSMO ####[facility] Yggnryxpfi8875[address] [place], [place] [address]Dr. Airam DeuceCBC AUTO DIFF on 56-55-4917JJYE #0.0 103/ulNormal0.0-0.1The [facility] [place] [facility] CenterComment on above: Performed By: #### CBC ####[facility] Wthkfdzuzk8323[address] [place], [place] [address]Dr.Airam ChangBasophils/100 WBC (Bld)0.5 %Normal 0.2-2.0The [facility] [place] [facility] CenterComment on above:Performed By: #### CBC ####[facility] Xaaubjlziv7374[address] [place], [place] [address]Dr.Selenalan ChangEO # 0.3 103/ulNormal0.0-0.7The [facility] [place] [facility] CenterComment on above:Performed By: #### CBC ####[facility] Vcejtxtypl513[address] [place], [place] [address]Dr. Airam ChangEosinophils/100 WBC (Bld)3.5 %Normal0.9-7.0The [facility] Comment on above:Performed By: #### CBC ####[facility] Lesxzjaifu1996[address] [place], [place] [address]Dr.Airam ChangErythrocyte distribution width (RBC) [Ratio]13.0 %Yqmghe05.0-15.0The [facility] [place] [facility] CenterComment on above: Performed By: #### CBC ####[facility] Tbhrpbkziw4846[address] [place], [place] [address]Dr.Airam ChangHematocrit (Bld) [Volume fraction]34.2 % Critically low36.0-48.0The [facility] HospitalComment on above:Performed By: #### CBC ####[facility] Eehqapxxjl7369[address] [place], [place] [address]Dr. Airam ChangHemoglobin (Bld) [Mass/Vol]10.4 g/dLCritically low12.0-16.0The [facility] [place] [facility] CenterComment on above:Performed By: #### CBC ####[facility] Hfnhpbjjvx039[address] [place], [place] [address]Dr.Yineil ChangIG #0.04 10e3/ulCritically high0.00-0.03The [facility] [place] [facility] CenterComment on above:Performed By: #### CBC ####[facility] Dxpeiahgah7815[address] [place], [place] [address]Dr.Airam ChangIG %0.5 %Normal0.0-0.5The [facility] [place] [facility] CenterComment on above: Performed By: #### CBC ####[facility] Zasiybqypq7789[address] [place], [place] [address]Dr.Airam ChangLYMPH #2.1 103/ulNormal1.2-3.8The [facility] [place] [facility] CenterComment on above:Performed By: #### CBC ####[facility] Uzaesdlpwo218[address] [place], [place] [address]Dr.Airam TripathiLymphocytes/100 WBC (Bld)23.5 %Mryked16.5-60.0The [facility] HospitalComment on above:Performed By: #### CBC ####[facility] Rbyxstjwhp4124[address] [place], [place] [address]Dr.Airam ChangMANUAL DIFF REQNONormalThe [facility] [place] [facility] CenterComment on above:Performed By: #### CBC ####[facility] Idljdrscrg678[address] [place], [place] [address]Dr.Airam TripathiH (RBC) [Entitic mass]29.4 pgNormal 26.7-34.0The [facility] [place] [facility] CenterComment on above:Performed By: #### CBC ####[facility] [address]wjqwm[address] [place] [address]Dr. Airam TripathiHC (RBC) [Mass/Vol]30.4 g/eAZojvcg26.9-35.2The [facility] Comment on above:Performed By: #### CBC ####[facility] Wgomymlewl9[address] [place] [address]Dr.Airam TripathiV (RBC) [Entitic vol]96.6 fL Gwnxsn64.0-99.0The [facility] [place] [facility] CenterComment on above:Performed By: #### CBC ####[facility] Ygfquwyosu3868[address] [place], [place] [address]Dr. Airam TripathiMONO #0.6 103/ulNormal0.3-0.8The [facility] [place] [facility] CenterComment on above: Performed By: #### CBC ####[facility] Iemwxfdgwl6214[address] [place], [place] [address]Dr.Airam TripathiMonocytes/100 WBC (Bld)6.4 %Normal 1.7-12.0The [facility] [place] [facility] CenterComment on above:Performed By: #### CBC ####[facility] Vkgrimxswv69[address] [place] [address]Dr. Airam TripathiNEUT #5.8 103/ulNormal1.4-6.5The [facility] [place] [facility] CenterComment on above: Performed By: #### CBC ####[facility] Fazlznwaxp2016[address] [place], [place] [address]Dr.Airam ChangNeutrophils/100 WBC (Bld)65.6 %Normal 43.0-75.0The [facility] [place] [facility] CenterComment on above:Performed By: #### CBC ####[facility] Utvruhnbuz2584[address] [place], [place] [address]Dr. Airam TripathiPlatelet mean volume (Bld) [Entitic vol]9.2 fLCritically low9.5-13.5 The [facility] [place] [facility] CenterComment on above:Performed By: #### CBC ####[facility] Alodevcibr9[address] [place] [address]Dr.Airam TripathiPLT338 103/jdTzpsoi979-691Zzw [facility] [place] [facility] CenterComment on above:Performed By: #### CBC ####[facility] Cuagsdfbdq67[address] [place] [address]Dr. Airam ChangRBC3.54 106/ulCritically low4.20-5.40The [facility] [place] [facility] CenterComment on above:Performed By: #### CBC ####[facility] Bkohlgvehc25[address] [place] [address]Dr.Airam ChangWBC8.9 103/ulNormal4.0-11.0The [facility] [place] [facility] CenterComment on above:Performed By: #### CBC ####[facility] Ebqzmgyvyi6589[address] [place], [place] [address]Dr.Airam TripathiMG MAMM SCREEN 3D GUMARO CADon 90-27-9571TW MAMM SCREEN 3D GUMARO CADNormGood Samaritan Hospitale [facility] HospitalPROF 14(COMP METB)on 64-49-4838Efffvel [Mass/Vol]3.6 g/dLNormal3.4-5.0The [facility] [place] [facility] CenterComment on above:Performed By: #### CMP ####[facility] Uoujdhzyxt7139[address] [place], [place] [address]Dr.Airam Tripathi Albumin/Globulin [Mass ratio]1.1 {ratio}NormalThe [facility] [place] [facility] CenterComment on above:Performed By: #### CMP ####[facility] Ytthyznzpt2[address] [place] [address]Dr.Airam TripathiALP [Catalytic activity/Vol]117 U/L Critically ihka42-409Cnl [facility] [place] [facility] CenterComment on above:Performed By: #### CMP ####[facility] Jdjiacxbxf0904[address] [place], [place] [address]Dr. Airam TripathiALT [Catalytic activity/Vol]26 U/HXxotgs40-96Rih [facility] Comment on above:Performed By: #### CMP ####[facility] Rildgkzfnk8890[address] [place], [place] [address]Dr.Yilan ChangAnion gap [Moles/Vol]11.2 mmol/LNormalThe [facility] [place] [facility] CenterComment on above:Performed By: #### CMP ####[facility] Uhlzdbgcjp1893[address] [place], [place] [address]Dr. Yilan ChangAST [Catalytic activity/Vol]29 U/XJglmsd81-95Aig [facility] Comment on above:Performed By: #### CMP ####[facility] Qokqtpzjum8043[address] [place], [place] [address]Dr.Yineil ChangBilirubin [Mass/Vol]0.3 mg/dL Normal0.2-1.0The [facility] [place] [facility] CenterComment on above:Performed By: #### CMP ####[facility] Jzqkgswddi778[address] [place], [place] [address]Dr. Yilan ChangCalcium [Mass/Vol]9.1 mg/dLNormal8.5-10.1The [facility] [place] [facility] CenterComment on above:Performed By: #### CMP ####[facility] Hlpvgrfask4484[address] [place], [place] [address]Dr.Airam ChangChloride [Moles/Vol]101 mmol/LNormal 98-107The [facility] [place] [facility] CenterComment on above:Performed By: #### CMP ####[facility] Regsvjvdfi7432[address] [place], [place] [address]Dr.Yineil ChangCO2 [Moles/Vol]26.8 mmol/MHjjhsl59.0-32.0The [facility] [place] [facility] CenterComment on above: Performed By: #### CMP ####[facility] Bocnzyevqq1711[address] [place], [place] [address]Dr.Selenalan ChangCreatinine [Mass/Vol]1.56 mg/dL Critically high0.55-1.02The [facility] [place] [facility] CenterComment on above:Performed By: #### CMP ####[facility] Eygowvkqtf9098[address] [place], [place] [address]Dr.Yilan ChangEGFR-AF GJGURMCH48 mL/min/1.42s9Cewcyoxiwa low>=60The [facility] [place] [facility] CenterComment on above:Performed By: #### CMP ####[facility] Qinqplwmiw2255[address] [place], [place] [address]Dr.Yilan ChangEGFR-NON AF NQWWDTSK77 mL/min/1.71u3Tmkdtgezdi low>=60The [facility] [place] [facility] CenterComment on above: Performed By: #### CMP ####[facility] Wyhvozksrz6[address] [place], [place] [address]Dr.Yilan ChangGlobulin (S) [Mass/Vol]3.3 g/dLNormalThe [facility] [place] [facility] CenterComment on above:Performed By: #### CMP ####[facility] Aqqpzhozwm3467[address] [place], [place] [address]Dr.Yilan ChangGlucose [Mass/Vol]84 mg/xBMzeugl26-041Yes [facility] [place] [facility] CenterComment on above:Performed By: #### CMP ####[facility] Kniyofjefy69[address] [place], [place] [address]Dr.Yilan ChangPotassium [Moles/Vol]5.0 mmol/LNormal3.5-5.1The [facility] [place] [facility] CenterComment on above:Performed By: #### CMP ####[facility] Yzhalnchuh[address] [place], [place] [address]Dr.Yilan ChangProtein [Mass/Vol]6.9 g/dLNormal6.4-8.2The [facility] [place] [facility] CenterComment on above:Performed By: #### CMP ####[facility] Vhbqmsbzzz7[address] [place], [place] [address]Dr.Yilan ChangSodium [Moles/Vol]134 mmol/LCritically yha091-586Gum [facility] CenterComment on above:Performed By: #### CMP ####[facility] Kwgigctszq[address] [place], [place] [address]Dr.Yilan ChangUrea nitrogen [Mass/Vol]28.0 mg/dLCritically high7.0-18.0The [facility] CenterComment on above:Performed By: #### CMP ####[facility] Fwotbueqlv[address] [place], [place] [address]Dr.Yilan ChangUrea nitrogen/Creatinine [Mass ratio] 17.9 mg/mgNormalThe [facility] CenterComment on above:Performed By: #### CMP ####[facility] [address]kjv[address] [place] [address]Dr. Airam DeuceOSMOLALITYon 47-51-1200Zwyklqwipu [Osmolality]287 mosm/kgNormal 275-295The [facility] on above:Performed By: #### OSMO ####[facility] Bbwhjmubjd[address] [place], [place] [address]Dr. Airam TripathiCBC AUTO DIFFon 33-85-0090NYYJ #0.0 103/ulNormal0.0-0.1The [facility] CenterComment on above:Performed By: #### CBC ####[facility] Vhifndgufg[address] [place], [place] [address]Dr.Airam TripathiBasophils/100 WBC (Bld)0.5 %Normal0.2-2.0The [facility] on above:Performed By: #### CBC ####[facility] Jylhsdiuty24[address] [place], [place] [address]Dr.Airam ChangEO #0.4 103/ulNormal0.0-0.7The [facility] on above:Performed By: #### CBC ####[facility] Aigmubbowi45[address] [place], [place] [address]Dr.Airam ChangEosinophils/100 WBC (Bld)6.4 %Normal 0.9-7.0The [facility] on above:Performed By: #### CBC ####[facility] Iuufnwyehi8667[address] [place], [place] [address]Dr.Airam Tripathi Erythrocyte distribution width (RBC) [Ratio]13.2 %Aycysv66.0-15.0The [facility] on above:Performed By: #### CBC ####[facility] Znzkbmztnx4375[address] [place], [place] [address]Dr.Airam TripathiHematocrit (Bld) [Volume fraction]32.2 %Critically low36.0-48.0The [facility] CenterComment on above:Performed By: #### CBC ####[facility] Zrgfshmbxy7[address] [place], [place] [address]Dr.Airam TripathiHemoglobin (Bld) [Mass/Vol]10.1 g/dL Critically low12.0-16.0The [facility] CenterComment on above:Performed By: #### CBC ####[facility] Kvlgpphkpw804[address] [place], [place] [address]DrKianna TripathiIG #0.03 10e3/ulNormal0.00-0.03The [facility] CenterComment on above: Performed By: #### CBC ####[facility] Pyqjxsjxle3420[address] [place], [place] [address]DrBroderick Tripathi %0.5 %Normal0.0-0.5The [facility] CenterComment on above:Performed By: #### CBC ####[facility] Spmjyblfez3957[address] [place], [place] [address]DrBroderick TripathiJ[facility] #1.3 103/ulNormal1.2-3.8The [facility] CenterComment on above:Performed By: #### CBC ####[facility] Menxochqiy6567[address] [place], [place] [address]Dr. Airam TripathiErie County Medical Centerhocytes/100 WBC (Bld)20.5 %Hjfqtq08.5-60.0The [facility] Comment on above:Performed By: #### CBC ####[facility] Oerlqyvahv5397[address] [place], [place] [address]Dr.Airam TripathiKELLERUAL DIFF REQNONormalThe [facility] CenterComment on above:Performed By: #### CBC ####[facility] Wwljpjhemk4020[address] [place], [place] [address]Dr.Airam TripathiST. [facility] (RBC) [Entitic mass]30.1 pbJkhtmq86.7-34.0The [facility] CenterComment on above: Performed By: #### CBC ####[facility] Nzfdksgqwq6049[address] [place], [place] [address]DrBroderick TripathiUPSTATE [facility]IV[facility] (RBC) [Mass/Vol]31.4 g/dLNormal 29.9-35.2The [facility] CenterComment on above:Performed By: #### CBC ####[facility] Gayznorjim3304[address] [place], [place] [address]Dr. Airam TripathiMCV (RBC) [Entitic vol]95.8 qBHaovwn33.0-99.0The [facility] Comment on above:Performed By: #### CBC ####[facility] Bmxjbkxrmj4354[address] [place], [place] [address]Dr.Airam TripathiMONO #0.5 103/ulNormal0.3-0.8 The [facility] HospitalComment on above:Performed By: #### CBC ####[facility] Iieiauqypq0560[address] [place], [place] [address]Dr.Airam Tripathi Monocytes/100 WBC (Bld)7.4 %Normal1.7-12.0The [facility] CenterComment on above: Performed By: #### CBC ####[facility] Zmmvruqtvd4074[address] [place], [place] [address]Dr.Airam TripathiNEUT #3.9 103/ulNormal1.4-6.5The [facility] HospitalComment on above:Performed By: #### CBC ####[facility] Soxmikrqgz1178[address] [place], [place] [address]Dr.Airam TripathiNeutrophils/100 WBC (Bld)64.7 %Fciarw60.0-75.0The [facility] HospitalComment on above:Performed By: #### CBC ####[facility] Gixfljhicw5209[address] [place], [place] [address]Dr.Airam TripathiPlatelet mean volume (Bld) [Entitic vol]9.2 fLCritically low 9.5-13.5The [facility] CenterComment on above:Performed By: #### CBC ####[facility] Tkahqcacaa8128[address] [place], [place] [address]Dr. Airam NzfmxHCL392 103/gwCpnuen054-097Jqd [facility] CenterComment on above: Performed By: #### CBC ####[facility] Glvypdyowc5747[address] [place], [place] [address]Dr.Airam TripathiRBC3.36 106/ulCritically low4.20-5.40The [facility] CenterComment on above:Performed By: #### CBC ####[facility] [address]prwdgbb[address] [place] [address]Dr.Airam ChangWBC6.1 103/ul Normal4.0-11.0The [facility] CenterComment on above:Performed By: #### CBC ####[facility] Omjihzcwnb7280[address] [place], [place] [address]Dr. Yilan ChangPROF 14(COMP METB)on 45-68-5523Gbwyllq [Mass/Vol]3.2 g/dLCritically low3.4-5.0The [facility] CenterComment on above:Performed By: #### CMP ####[facility] Cvchirpdnn9275[address] [place], [place] [address]Dr. Yilan ChangAlbumin/Globulin [Mass ratio]1.1 {ratio}NormalThe [facility] Comment on above:Performed By: #### CMP ####[facility] Ielxwystjq5475[address] [place], [place] [address]Dr.Selenalan ChangALP [Catalytic activity/Vol] 123 U/LCritically fkpa59-780Pen [facility] CenterComment on above:Performed By: #### CMP ####[facility] Gwgysaccco340[address] [place], [place] [address]Dr.Yilan ChangALT [Catalytic activity/Vol]26 U/RGpjsld18-24Rrd [facility] CenterComment on above:Performed By: #### CMP ####[facility] Jqqaodkbcr299[address] [place], [place] [address]Dr.Selenalan ChangAnion gap [Moles/Vol]14.5 mmol/LNormalThe [facility] CenterComment on above:Performed By: #### CMP ####[facility] Xtwphfzdup1595[address] [place], [place] [address]Dr.Yilan ChangAST [Catalytic activity/Vol]23 U/OOhzrbc65-45Esm [facility] CenterComment on above:Performed By: #### CMP ####[facility] Xsajlorjle4276[address] [place], [place] [address]Dr.Yilan ChangBilirubin [Mass/Vol]0.3 mg/dLNormal0.2-1.0The [facility] CenterComment on above:Performed By: #### CMP ####[facility] Livrzmnqsi17[address] [place] [address]Dr.Yilan ChangCalcium [Mass/Vol]8.2 mg/dLCritically low8.5-10.1The [facility] CenterComment on above:Performed By: #### CMP ####[facility] Jetejyfwnt[address] [place] [address]Dr.Yilan ChangChloride [Moles/Vol]102 mmol/GVomcmh46-744Apr [facility] CenterComment on above:Performed By: #### CMP ####[facility] Qpudurvxoa9570[address] [place], [place] [address]Dr.Yilan ChangCO2 [Moles/Vol]23.2 mmol/HPgeget24.0-32.0The [facility] CenterCombaraga [facility] on above:Performed By: #### CMP ####[facility] Mtkwtomdnz7930[address] [place], [place] [address]Dr.Yilan ChangCreatinine [Mass/Vol]1.98 mg/dLCritically high0.55-1.02The [facility] CenterComment on above:Performed By: #### CMP ####[facility] Bummgukiql0533[address] [place], [place] [address]Dr.Yilan ChangEGFR-AF FLBOMYSW23 mL/min/1.73m2 Critically low>=60The [facility] CenterCombaraga county memorial hospital on above:Performed By: #### CMP ####[facility] Fareqkubub3337[address] [place], [place] [address]Dr. Yilan ChangEGFR-NON AF XNQQLFZS34 mL/min/1.25d1Ofzirbaamn low>=60The [facility] CenterComment on above:Performed By: #### CMP ####[facility] Vkpsoildmo7257[address] [place], [place] [address]Dr.Yilan ChangGlobulin (S) [Mass/Vol]3.0 g/dLNormalThe [facility] CenterCombaraga county memorial hospital on above:Performed By: #### CMP ####[facility] Pjezdxiyea[address] [place], [place] [address]Dr.Yilan ChangGlucose [Mass/Vol]131 mg/dLCritically deai49-855Odm [facility] CenterComment on above:Performed By: #### CMP ####[facility] Tpaomcwejd663[address] [place], [place] [address]Dr.Airam TripathiPotassium [Moles/Vol]4.7 mmol/LNormal3.5-5.1The [facility] CenterComment on above: Performed By: #### CMP ####[facility] Riwcwawpnl9[address] [place], [place] [address]Dr.Airam TripathiProtein [Mass/Vol]6.2 g/dLCritically low 6.4-8.2The [facility] HospitalComment on above:Performed By: #### CMP ####[facility] Jygfdamnqn029[address] [place], [place] [address]Dr.Airam Tripathi Sodium [Moles/Vol]135 mmol/LCritically ung373-401Zog [facility] CenterComment on above:Performed By: #### CMP ####[facility] Kmbnqxyuym6524[address] [place], [place] [address]Dr.Airam TripathiUrea nitrogen [Mass/Vol]37.0 mg/dL Critically high7.0-18.0The [facility] CenterComment on above:Performed By: #### CMP ####[facility] Vyazmkyqfq7793[address] [place], [place] [address]Dr. Airam TripathiUrea nitrogen/Creatinine [Mass ratio]18.7 mg/mgNormalThe [facility] CenterComment on above:Performed By: #### CMP ####[facility] Mvwjtvhmwc3397[address] [place], [place] [address]Dr.Airam DeuceOSMOLALITYon 83-85-8615Rtmvrffqpx [Osmolality]271 mosm/kgCritically bcg989-854Jkx [facility] CenterComment on above:Performed By: #### OSMO ####[facility] Iuxvmrzzxr3780[address] [place], [place] [address]Dr. Airam TripathiCBC AUTO DIFF on 55-07-7727PPFY #0.0 103/ulNormal0.0-0.1The [facility] CenterComment on above: Performed By: #### CBC ####[facility] Fedryfkcdl5385[address] [place], [place] [address]Dr.Yilan ChangBasophils/100 WBC (Bld)0.6 %Normal 0.2-2.0The [facility] CenterComment on above:Performed By: #### CBC ####[facility] Oaeotcoest[address] [place] [address]Dr.Yilan ChangEO # 0.1 103/ulNormal0.0-0.7The [facility] CenterComment on above:Performed By: #### CBC ####[facility] Jvdbndczoi[address] [place], [place] [address]Dr. Yilan ChangEosinophils/100 WBC (Bld)2.1 %Normal0.9-7.0The [facility] Comment on above:Performed By: #### CBC ####[facility] Dlbtgjnzhm9003[address] [place], [place] [address]Dr.Yilan ChangErythrocyte distribution width (RBC) [Ratio]13.1 %Wshmah82.0-15.0The [facility] CenterComment on above: Performed By: #### CBC ####[facility] Autqskincb6611[address] [place], [place] [address]Dr.Yilan ChangHematocrit (Bld) [Volume fraction]33.8 % Critically low36.0-48.0The [facility] CenterComment on above:Performed By: #### CBC ####[facility] Hhblrtexvw934[address] [place], [place] [address]Dr. Yilan ChangHemoglobin (Bld) [Mass/Vol]10.7 g/dLCritically low12.0-16.0The [facility] CenterComment on above:Performed By: #### CBC ####[facility] Jlsygzmcis[address] [place], [place] [address]Dr.Yilan ChangIG #0.02 10e3/ulNormal0.00-0.03The [facility] CenterComment on above:Performed By: #### CBC ####[facility] Syiogxaymm4605[address] [place], [place] [address]Dr. Yilan ChangIG %0.3 %Normal0.0-0.5The [facility] CenterComment on above:Performed By: #### CBC ####[facility] P[address]ajnecw[address] [place] [address]Dr.Airam ChangLYMPH #1.2 103/ulNormal1.2-3.8The [facility] Comment on above:Performed By: #### CBC ####[facility] Scvcyvekau39[address] [place] [address]Dr.Airam TripathiLymphocytes/100 WBC (Bld)17.3 %Critically low20.5-60.0The [facility] CenterComment on above:Performed By: #### CBC ####[facility] Zwnmzmpxwl0[address] [place] [address]Dr.Airam ChangMANUAL DIFF REQNONormalThe [facility] CenterComment on above: Performed By: #### CBC ####[facility] Wixbstxgyf9878[address] [place], [place] [address]Dr.Airam TripathiMCH (RBC) [Entitic mass]30.2 pgNormal 26.7-34.0The [facility] CenterComment on above:Performed By: #### CBC ####[facility] Vfgjnkhbcw8324[address] [place], [place] [address]Dr. Airam TripathiMCHC (RBC) [Mass/Vol]31.7 g/nDYehzxw53.9-35.2[facility] Comment on above:Performed By: #### CBC ####[facility] Qlsbxnredy4168[address] [place], [place] [address]Dr.Airam TripathiMCV (RBC) [Entitic vol]95.5 fL Kmzcsw66.0-99.0The [facility] CenterComment on above:Performed By: #### CBC ####[facility] Fgyxpiruhf8[address] [place] [address]Dr. Airam ChangMONO #0.5 103/ulNormal0.3-0.8The [facility] CenterComment on above: Performed By: #### CBC ####[facility] Zsfehoebku3655[address] [place], [place] [address]Dr.Airam ChangMonocytes/100 WBC (Bld)6.8 %Normal 1.7-12.0The [facility] CenterComment on above:Performed By: #### CBC ####[facility] Xbhoocusze7[address] [place] [address]Dr. Airam TripathiNEUT #4.9 103/ulNormal1.4-6.5The [facility] CenterComment on above: Performed By: #### CBC ####[facility] Shbkzdjzdz70[address] [place] [address]Dr.Airam TripathiNeutrophils/100 WBC (Bld)72.9 %Normal 43.0-75.0The [facility] HospitalComment on above:Performed By: #### CBC ####[facility] Rruuzjvhjr3456[address] [place], [place] [address]Dr. Airam TripathiPlatelet mean volume (Bld) [Entitic vol]9.0 fLCritically low9.5-13.5 The [facility] CenterComment on above:Performed By: #### CBC ####[facility] Azcpjxvols7644[address] [place], [place] [address]Dr.Airam YolkgKQO732 103/xgPovlby456-001Bio [facility] CenterComment on above:Performed By: #### CBC ####[facility] Crzrzgcrsa1463[address] [place], [place] [address]Dr. Airam TripathiRBC3.54 106/ulCritically low4.20-5.40The [facility] CenterComment on above:Performed By: #### CBC ####[facility] Qyvxopaozf8374[address] [place], [place] [address]Dr.Airam TripathiWBC6.8 103/ulNormal4.0-11.0The [facility] HospitalComment on above:Performed By: #### CBC ####[facility] Locnekrnfv1389[address] [place], [place] [address]Dr.Airam TripathiPROF 14(COMP METB)on 12-28-3398Kmsvmpf [Mass/Vol]3.2 g/dLCritically low3.4-5.0The [facility] HospitalComment on above:Performed By: #### CMP ####[facility] Tkioeyhjet7023[address] [place], [place] [address]Dr.Airam Tripathi Albumin/Globulin [Mass ratio]1.0 {ratio}NormalThe [facility] CenterComment on above:Performed By: #### CMP ####[facility] Amrcuvjdne[address] [place] [address]Dr.Yilan ChangALP [Catalytic activity/Vol]109 U/L Pyqamq78-722Woa [facility] CenterComment on above:Performed By: #### CMP ####[facility] Qnqwfgomjw27[address] [place] [address]Dr. Yilan ChangALT [Catalytic activity/Vol]23 U/KSyycmh70-02Dpz [facility] Comment on above:Performed By: #### CMP ####[facility] Ulmbffyjqo6967[address] [place], [place] [address]Dr.Yilan ChangAnion gap [Moles/Vol]11.6 mmol/LNormalThe [facility] CenterComment on above:Performed By: #### CMP ####[facility] Ofgmopczoi7989[address] [place], [place] [address]Dr. Yilan ChangAST [Catalytic activity/Vol]24 U/STnsosi91-27Hvh [facility] Comment on above:Performed By: #### CMP ####[facility] Gwepledvsm909[address] [place], [place] [address]Dr.Yilan ChangBilirubin [Mass/Vol]0.2 mg/dL Normal0.2-1.0The [facility] CenterComment on above:Performed By: #### CMP ####[facility] Uwazytsmwb1049[address] [place], [place] [address]Dr. Yilan ChangCalcium [Mass/Vol]8.6 mg/dLNormal8.5-10.1The [facility] CenterComment on above:Performed By: #### CMP ####[facility] Klprqvzjym4116[address] [place], [place] [address]Dr.Yilan ChangChloride [Moles/Vol]100 mmol/LNormal 98-107The [facility] CenterComment on above:Performed By: #### CMP ####[facility] Zvysacycvq2337[address] [place], [place] [address]Dr.Yilan ChangCO2 [Moles/Vol]24.7 mmol/WVajgat36.0-32.0The [facility] CenterComment on above: Performed By: #### CMP ####[facility] Ixdurwephr80[address] [place] [address]Dr.Airam ChangCreatinine [Mass/Vol]1.11 mg/dL Critically high0.55-1.02[facility] HospitalComment on above:Performed By: #### CMP ####[facility] Lymnwbnpwj84[address] [place] [address]Dr.Yilan ChangEGFR-AF DJIBOUTIAN>60Normal>=60The [facility] CenterComment on above:Performed By: #### CMP ####[facility] Lqahqiajdr4627[address] [place], [place] [address]Dr.Yilan ChangEGFR-NON AF OLPBBATK19 mL/min/1.73m2 Critically low>=60The [facility] CenterComment on above:Performed By: #### CMP ####[facility] Hragjigxof5733[address] [place], [place] [address]Dr. Airam ChangGlobulin (S) [Mass/Vol]3.1 g/dLNormalThCommunity Memorial HospitalComment on above:Performed By: #### CMP ####[facility] Dzczgdwcsi5417[address] [place], [place] [address]Dr.Airam ChangGlucose [Mass/Vol]79 mg/oHRlrnbm19-651 [facility] HospitalComment on above:Performed By: #### CMP ####[facility] Ouznimixdd3568[address] [place], [place] [address]Dr.Airam Tripathi Potassium [Moles/Vol]5.3 mmol/LCritically high3.5-5.1The [facility] Comment on above:Performed By: #### CMP ####[facility] Jsyvneomlq7997[address] [place], [place] [address]Dr.Selenaneil ChangProtein [Mass/Vol]6.3 g/dL Critically low6.4-8.2The [facility] CenterComment on above:Performed By: #### CMP ####[facility] Tqaijzvneq4078[address] [place], [place] [address]Dr. Airam ChangSodium [Moles/Vol]131 mmol/LCritically dmn767-078Hvo [facility] CenterComment on above:Performed By: #### CMP ####[facility] Fttybpjbdr2037[address] [place], [place] [address]Dr.Airam ChangUrea nitrogen [Mass/Vol]20.0 mg/dLCritically high7.0-18.0The [facility] CenterComment on above:Performed By: #### CMP ####[facility] Lxdfzlqscv029[address] [place], [place] [address]Dr.Selenalan ChangUrea nitrogen/Creatinine [Mass ratio] 18.0 mg/mgNormalThe [facility] CenterComment on above:Performed By: #### CMP ####[facility] Ibtckghpjy5368[address] [place], [place] [address]Dr. Airam ChangOSMOLALITYon 13-16-4674Zwarxhurmf [Osmolality]279 mosm/kgNormal 275-295The [facility] CenterCombaraga [facility] on above:Performed By: #### OSMO ####[facility] Ktwdugectq2006[address] [place], [place] [address]Dr. Selenaneil ChangCBC AUTO DIFFon 43-40-6277LUWU #0.0 103/ulNormal0.0-0.1The [facility] CenterCombaraga [facility] memorial hospital on above:Performed By: #### CBC ####[facility] Qmsxbuxbqc5156[address] [place], [place] [address]Dr.Selenalan ChangBasophils/100 WBC (Bld)0.5 %Normal0.2-2.0The [facility] CenterCombaraga [facility] hospital on above:Performed By: #### CBC ####[facility] Mmurulvvdw7129[address] [place], [place] [address]Dr.Yilan ChangEO #0.4 103/ulNormal0.0-0.7The [facility] on above:Performed By: #### CBC ####[facility] Yknzgoxrbn269[address] [place], [place] [address]Dr.Selenalan ChangEosinophils/100 WBC (Bld)6.3 %Normal 0.9-7.0The [facility] on above:Performed By: #### CBC ####[facility] Rqvrythmsi[address] [place] [address]Dr.Airam Tripathi Erythrocyte distribution width (RBC) [Ratio]13.3 %Ypdcml43.0-15.0The [facility] CenterComment on above:Performed By: #### CBC ####[facility] Lscqvcitnk6[address] [place], [place] [address]Dr.Airam TripathiHematocrit (Bld) [Volume fraction]29.5 %Critically low36.0-48.0The [facility] CenterComment on above:Performed By: #### CBC ####[facility] Zbfeneyajo7296[address] [place], [place] [address]Dr.Selenaneil TripathiHemoglobin (Bld) [Mass/Vol]9.1 g/dL Critically low12.0-16.0The [facility] CenterComment on above:Performed By: #### CBC ####[facility] Uanscjnbdo693[address] [place], [place] [address]Dr. Airam TripathiIG #0.04 10e3/ulCritically high0.00-0.03The [facility] CenterComment on above:Performed By: #### CBC ####[facility] Gwbebonscd178[address] [place], [place] [address]Dr.Airam TripathiIG %0.7 %Critically high0.0-0.5The [facility] CenterComment on above:Performed By: #### CBC ####[facility] Grwnyuukbj5320[address] [place], [place] [address]Dr.Airam DeuceLYMPH #1.3 103/ulNormal1.2-3.8The [facility] CenterComment on above:Performed By: #### CBC ####[facility] Ugzctbdzco1574[address] [place], [place] [address]Dr. Selenaneil TripathiLymphocytes/100 WBC (Bld)20.9 %Ozaqdq13.5-60.0The [facility] Comment on above:Performed By: #### CBC ####[facility] Zmvgjtzfrv0910[address] [place], [place] [address]Dr.Airam DeuceMANUAL DIFF REQNONormalThe [facility] CenterComment on above:Performed By: #### CBC ####[facility] Juzzummqzt[address] [place] [address]Dr.Airam TripathiH (RBC) [Entitic mass]30.1 qfDwddba03.7-34.0The [facility] CenterComment on above: Performed By: #### CBC ####[facility] Sfvvonsfez033[address] [place] [address]Dr.Airam DeuceHC (RBC) [Mass/Vol]30.8 g/dLNormal 29.9-35.2The [facility] HospitalComment on above:Performed By: #### CBC ####[facility] Sogvmcijls4743[address] [place], [place] [address]Dr. Selenaneil TripathiV (RBC) [Entitic vol]97.7 mAMvvawl90.0-99.0The [facility] Comment on above:Performed By: #### CBC ####[facility] Osefppisqm9[address] [place], [place] [address]Dr.Airam TripathiMONO #0.4 103/ulNormal0.3-0.8 The [facility] CenterComment on above:Performed By: #### CBC ####[facility] Hykvgnvlvq4874[address] [place], [place] [address]Dr.Selenaneil Tripathi Monocytes/100 WBC (Bld)6.6 %Normal1.7-12.0The [facility] CenterComment on above: Performed By: #### CBC ####[facility] Jdtymwpcrb56[address] [place], [place] [address]Dr.Airam DeuceNEUT #4.0 103/ulNormal1.4-6.5The [facility] CenterComment on above:Performed By: #### CBC ####[facility] Brhvaidkmr5[address] [place], [place] [address]Dr.Selenaneil TripathiNeutrophils/100 WBC (Bld)65.0 %Tfzyyu00.0-75.0The [facility] CenterComment on above:Performed By: #### CBC ####[facility] Zsrklcsucj[address] [place] [address]Dr.Selenaneil TripathiPlatelet mean volume (Bld) [Entitic vol]9.4 fLCritically low 9.5-13.5The [facility] CenterComment on above:Performed By: #### CBC ####[facility] Stdgjgvufr[address] [place], [place] [address]Dr. Airam TripathiPLT224 103/olMxinbb475-845Ktv [facility] CenterComment on above: Performed By: #### CBC ####[facility] Zegzpotkln[address] [place], [place] [address]Dr.Airam TripathiRBC3.02 106/ulCritically low4.20-5.40[facility] Bryan HospitalComment on above:Performed By: #### CBC ####[facility] Lnlqtttavu[address] [place], [place] [address]Dr.Airam TripathiWBC6.1 103/ul Normal4.0-11.0The [facility] CenterComment on above:Performed By: #### CBC ####[facility] Jpihcrcvyq8[address] [place], [place] [address]Dr. Airam ChangPROF 14(COMP METB)on 92-93-1402Ouwlupb [Mass/Vol]2.8 g/dLCritically low3.4-5.0[facility] HospitalComment on above:Performed By: #### CMP ####[facility] Tmhnjaodqm[address] [place], [place] [address]Dr. Airam ChangAlbumin/Globulin [Mass ratio]1.1 {ratio}NormalParkview Health Bryan Hospital Comment on above:Performed By: #### CMP ####[facility] Meuyscvnhi370[address] [place], [place] [address]Dr.Airam ChangALP [Catalytic activity/Vol] 116 U/JKzhuze79-131Mgq [facility] CenterComment on above:Performed By: #### CMP ####[facility] Ppoazmnxqg[address] [place], [place] [address]Dr. Airam TripathiALT [Catalytic activity/Vol]23 U/LSqqhus67-12Mnm [facility] Comment on above:Performed By: #### CMP ####[facility] Syleojsnwo[address] [place], [place] [address]Dr.Airam TripathiAnion gap [Moles/Vol]12.1 mmol/LNormalThe [facility] CenterComment on above:Performed By: #### CMP ####[facility] Lyitmecpjk11[address] [place], [place] [address]Dr. Yilan ChangAST [Catalytic activity/Vol]23 U/JNnxusn07-98Dok [facility] Comment on above:Performed By: #### CMP ####[facility] Thyydreqsi4923[address] [place], [place] [address]Dr.Yilan ChangBilirubin [Mass/Vol]0.2 mg/dL Normal0.2-1.0The [facility] CenterComment on above:Performed By: #### CMP ####[facility] Skjzoqttfc80[address] [place], [place] [address]Dr. Yilan ChangCalcium [Mass/Vol]8.1 mg/dLCritically low8.5-10.1The [facility] CenterComment on above:Performed By: #### CMP ####[facility] Yisipwrtsu[address] [place], [place] [address]Dr.Yilan ChangChloride [Moles/Vol]105 mmol/AWwltlw36-811Gau [facility] CenterComment on above:Performed By: #### CMP ####[facility] Vbjmzifwom06[address] [place], [place] [address]Dr.Yilan ChangCO2 [Moles/Vol]22.1 mmol/TMtikdi98.0-32.0The [facility] CenterComment on above:Performed By: #### CMP ####[facility] Trakewjwzz9[address] [place], [place] [address]Dr.Yilan ChangCreatinine [Mass/Vol]1.06 mg/dLCritically high0.55-1.02The [facility] CenterComment on above:Performed By: #### CMP ####[facility] Ycqshdmbjx07[address] [place], [place] [address]Dr.Yilan ChangEGFR-AF DJIBOUTIAN>60Normal>=60The [facility] CenterComment on above:Performed By: #### CMP ####[facility] Vpiqpaqjpz[address] [place], [place] [address]Dr.Yilan ChangEGFR-NON AF KICUATXN94 mL/min/1.14x7Tvophlmlwl low>=60The [facility] CenterComment on above: Performed By: #### CMP ####[facility] Tkrvofkedv[address] [place], [place] [address]Dr.Selenaneil DeuceGlobulin (S) [Mass/Vol]2.6 g/dLNormalThCommunity Memorial HospitalComment on above:Performed By: #### CMP ####[facility] Qqgvtqjimn284[address] [place], [place] [address]Dr.Airam DeuceGlucose [Mass/Vol]109 mg/dLCritically wgrh16-964Wuy [facility] CenterComment on above: Performed By: #### CMP ####[facility] Fyzmlunhqa6[address] [place], [place] [address]Dr.Airam DeucePotassium [Moles/Vol]4.2 mmol/LNormal 3.5-5.1The [facility] CenterComment on above:Performed By: #### CMP ####[facility] Psvtxoioey5430[address] [place], [place] [address]Dr.Airam Tripathi Protein [Mass/Vol]5.4 g/dLCritically low6.4-8.2The [facility] CenterComment on above:Performed By: #### CMP ####[facility] Ubbvuibyrj3096[address] [place], [place] [address]Dr.Airam ChangSodium [Moles/Vol]135 mmol/LCritically lpo692-880Iww [facility] CenterComment on above:Performed By: #### CMP ####[facility] Eeknmybuor2896[address] [place], [place] [address]Dr. Airam ChangUrea nitrogen [Mass/Vol]15.0 mg/dLNormal7.0-18.0The [facility] Comment on above:Performed By: #### CMP ####[facility] Jdgvjewqwx7134[address] [place], [place] [address]Dr.Airam ChangUrea nitrogen/Creatinine [Mass ratio]14.2 mg/mgNormalThe [facility] CenterComment on above:Performed By: #### CMP ####[facility] Akywwaipgp9232[address] [place], [place] [address]Dr. Yilan ChangOperative Reporton [id number] ReportMR#: [id number] S [facility] Pt. Name: Mabel Moser Room [...] subscapularis. 3. Right shoulder proximal biceps tenotomy. CHANGE CONTROL ANALYST: Alex Serra M.D. ANESTHESIA: General. INDICATIONS: The [...] Reza M.D. Date Trans: 08/19/2021 11:37 A/carter DN_JN:[id number] cc: Yuri Santana M.D. [address] [place] [address]DywkcxIoaMansfield Hospital GLUCOSE LABon [id number] [Mass/Vol]77 mg/nOXvzsdl42-488Uve [facility] Medical CenterComment on above:Performed By: #### [id number] #### [facility] [place] [address], USACNPNon 66-46-8963DDKIVmspflyhf (HEMASA) MABEL MOSER ([id number]) 1960 F Date Time Provider Department 04/05/21 YEVGENIY FORD During your visit today, we recorded the following information about you: Chana Gallegos [facility] 04/05/2021 7:57 AM Signed Records faxed to the cancer center at [facility]. Patient to follow with Dr. Liu. Release [...] 40 mg by mouth once daily. - triamterene-hydrochlorothiazide (MAXZIDE) 75-50 mg per tablet Take 1 [...] neuroge*08/15/2016 Encounter Status:Closed by CHANA LEE on 04/05/21[facility] 12-30-6155EHJCKPEJLvujdj (HEMASA) MABEL MOSER ([id number]) 1960 F Date Time Provider Department 01/11/21 [...] 40 mg by mouth once daily. - triamterene-hydrochlorothiazide (MAXZIDE) 75-50 mg per tablet Take 1 [...] month. Encounter Status:Closed by [facility]EVGENIY FORD [facility] Vital Signs Date TimeVital SignValuePerforming OgtwvsazgMemjlxey20-88-9832 11:06-0400Body wakvfz021.48 cmYuri Santana MD Work Phone: 1(454)079-[address] [place], [place] 6652607-22-2025 11:06-0400 Body mass index (BMI) [Ratio]35.5 kg/v0XonjutnYuri Santana MD Work Phone: 1(053)[address]07-22-2025 11:06-0400 Body dulceu16.22 kgYuri Santana MD Work Phone: 3(400)745-[address] [place], [place] [address]7-22-2025 11:06-0400 Diastolic blood mm[Hg]Yuri Santana MD Work Phone: 1(102)986-[address] [place], [place] [address]7-22-2025 11:06-0400 Heart rate79 /Mary Grace Santana MD Work Phone: 7(647)820-[address] [place], [place] [address]7-22-2025 11:06-0400 Respiratory rate16 /Mary Grace Santana MD Work Phone: 2(845)801-[address] [place], [place] [address]7-22-2025 11:06-0400 SaO2% (BldA) [Mass fraction]98 %Yuri Santana MD Work Phone: [facility]07-22-2025 11:06-0400 Systolic blood mm[Hg]Yuri Santana MD Work Phone: [facility]04-09-2025 14:44-0400 Body gbioow039.48 cmP[facility]04-09-2025 14:44-0400Body mass index (BMI) [Ratio]42.2 kg/d0YphzhhxurPomerene Hospital04-09-2025 14:44-0400Body iiocez970.77 kgPomerene Hospital04-09-2025 14:44-0400Diastolic blood pqliamgx85 mm[Hg][facility] 10-02-2024 14:44-0400Heart rate76 /[facility] 10-02-2024 14:44-0400Respiratory rate16 /[facility] 10-02-2024 14:44-0292ExT6% (BldA) [Mass fraction]100 %[facility]04-09-2025 14:44-0400Systolic blood ilyrtbml838 mm[Hg][facility]10-01-2024 11:47-0400Body mass index (BMI) [Ratio]41.1 kg/m2 [facility]10-01-2024 11:47-0400Diastolic blood prygnojw16 mm[Hg][facility]10-01-2024 11:47-0400Heart rate81 /min [facility]10-01-2024 11:47-0400Respiratory rate18 /min [facility]10-01-2024 11:47-0697CcJ1% (BldA) [Mass fraction]92 %[facility]10-01-2024 11:47-0400Systolic blood clmfisoz418 mm[Hg][facility]10-01-2024 08:52-0400 Body wklivx115.48 cmP[facility]10-01-2024 08:52-0400Body atjaracjtzr04.1 [degF][facility]10-01-2024 08:52-0400Body .05 [facility]09-10-2024 13:52-0400Blood Pressure LocationMichael NILL 646-2205Rwlsif-OhrjeLakehealth [facility]09-10-2024 13:52-0400Diastolic blood cabajoqe79 mm[Hg]Migel NILL 910-3622Ggbuxa-HvoglLakehealth Beachwood Medical Center09-10-2024 13:52-0400Heart rate77 /minMichael NILL [phone]-JhythLakehealth Beachwood Medical Center09-10-2024 13:52-0400Respiratory rate16 /minMichael NILL 381-7470Lebdmy-IvzrzLakehealth Beachwood [facility] Center09-10-2024 13:52-0400Systolic blood mm[Hg]Migel NILL 134-6973Fradvl-YyuoxLakehealth Beachwood Medical Center01-08-2024 12:00-0500Body sblebuuyiuj49.9 [degF]MD Yuri Santana Work Phone: 1(419)516-[address] [place], [place] [address]2601-08-2024 12:00-0500 Diastolic blood ottpxgmp41 mm[Hg]MD Yuri Santana Work Phone: 1(184)[address]01-08-2024 12:00-0500 Heart rate68 /minMD Yuri Santana Work Phone: 1(173)970-[address] [place], [place] [address]2601-08-2024 12:00-0500 Respiratory rate16 /minMD Yuri Santana Work Phone: 1(155)32476 [address]01-08-2024 12:00-0500 SaO2% (BldA) [Mass fraction]100 %MD Yuri Santana Work Phone: 1(145)641-[address] [place], [place] [address]01-08-2024 12:00-0500 Systolic blood oyzdbrsz899 mm[Hg]MD Yuri Santana Work Phone: 1(079)[address]01-08-2024 04:49-0500 Body qvitsx56.8 kgMD Yuri Santana Work Phone: [facility]01-05-2024 14:44-0500 Body xwyfsi849.48 cmMD Yuri Santana Work Phone: [facility]10-10-2023 16:20-0400 Body ckmqhi915.75 cmAbreonna Tadjohnnie Other [employer] Other 935087-18-4735 16:20-0400Body mass index (BMI) [Ratio] 31.46 kg/m2Raeann Tadjohnnie Other [employer] Other 10-10-2023 16:20-0400Body uyboryrzghj64 [degF]Raeann Harrisonkendalljohnnie Other [facility] [employer] Other 10-10-2023 16:20-0400Body duzlcl46.29 kgRaeann Tadjohnnie Other [employer] Other 10-10-2023 16:20-0400Diastolic blood mm[Hg] Raeann Harrisonkendalljohnnie Other [employer] Other 10-10-2023 16:20-0400Respiratory rate18 /minRaeann Harrisonkendalljohnnie Other [employer] Other 10-10-2023 16:20-9869ZpL6% (BldA) [Mass fraction]98 % Raeann Tadjohnnie Other [employer] Other 10-10-2023 16:20-0400Systolic blood qnngincz148 mm[Hg] Raeann Tads Other [employer] Other 05-05-2023 22:23-0400Body myuhhxihwej50.4 [degF]MD Yuri Santana Work Phone: 1(509)179-[address] [place], [place] 6652605-05-2023 22:00-0400 Diastolic blood ecehjjsp90 mm[Hg]MD Yuri Santana Work Phone: 1(982)432-[address] [place], [place] 6652605-05-2023 22:00-0400 Heart rate72 /minMD Yuri Santana Work Phone: 1(842)961-[address] [place], [place] 6652605-05-2023 22:00-0400 Respiratory rate20 /minMD Yuri Santana Work Phone: 1(172)898-[address] [place], [place] 6652605-05-2023 22:00-0400 SaO2% (BldA) [Mass fraction]97 %MD Yuri Santana Work Phone: 1(920)[address]05-05-2023 22:00-0400 Systolic blood dpparmbq976 mm[Hg]MD Yuri Santana Work Phone: 1(607)16376 [address]05-05-2023 17:54-0400 Body oiwfch632.48 cmMD Yuri Santana Work Phone: 1(935)985-[address] [place], [place] 6652605-05-2023 17:54-0400 Body sxixgh24.7 kgMD Yuri Santana Work Phone: 1(724)531-[address] [place], [place] 6652604-04-2023 12:00-0400 Body haafgu310.75 Laura Casimiro Other [employer] Other 04-04-2023 12:00-0400Body mass index (BMI) [Ratio] 31.78 kg/m2Raeann Casimiro Other [employer] Other 04-04-2023 12:00-0400Body qimtukbzsxn73.1 [degF]Raeann Casimiro Other [facility] [employer] Other 04-04-2023 12:00-0400Body vlsgyw18.11 kgRaeann HunteriQVCloud Other [employer] Other 04-04-2023 12:00-0400Diastolic blood ptveqzvx98 mm[Hg] Azariel Kirkpatrick Other [employer] Other 04-04-2023 12:00-0400Respiratory rate18 /minRaeann Kirkpatrick Other [place] [employer] Other 04-04-2023 12:00-9410PwA3% (BldA) [Mass fraction]99 % Azariel Kirkpatrick Other [employer] Other 04-04-2023 12:00-0400Systolic blood yppeduwk282 mm[Hg] Raeann Kirkpatrick Other [employer] Other 10-18-2022 14:00-0400Body gukhbw089.75 cmAbreonna Harrisonkendalljohnnie Other [employer] Other 10-18-2022 14:00-0400Body mass index (BMI) [Ratio] 30.13 kg/m2Raeann Kirkpatrick Other [employer] Other 10-18-2022 14:00-0400Body nazrqcgdswe80.6 [degF]Raeann Kirkpatrick Other [employer] Other 10-18-2022 14:00-0400Body vmjery33.93 kgRaeann Kirkpatrick Other [employer] Other 10-18-2022 14:00-0400Diastolic blood psekvdwm93 mm[Hg] Raeann Mishras Other [employer] Other 10-18-2022 14:00-0400Respiratory rate18 /minRaeann Kirkpatrick Other [employer] Other 10-18-2022 14:00-1180GyX6% (BldA) [Mass fraction]98 % Raeann Kirkpatrick Other [employer] Other 10-18-2022 14:00-0400Systolic blood sxynqlqi664 mm[Hg] Raeann Kirkpatrick Other [employer] Other 12-22-2021 16:20-0500Body ecybnl458.75 cmEalexairvin Abiodungerald Other [employer] Other 12-22-2021 16:20-0500Body mass index (BMI) [Ratio] 30.88 kg/r5VglaqLos Grissom Other [employer] Other 12-22-2021 16:20-0500Body tcootilgsxg44.4 [degF]Bryonirvin Grissom Other [employer] Other 12-22-2021 16:20-0500Body fzyhpz42.84 kgLos Grissom Other [employer] Other 12-22-2021 16:20-0500Diastolic blood kguujteo56 mm[Hg] Los Grissom Other [employer] Other 12-22-2021 16:20-0500Respiratory rate18 /minEfidelina Grissom Other [employer] Other 12-22-2021 16:20-4000FrI8% (BldA) [Mass fraction]99 % Los Grsisom Other [facility] [employer] Other 210383-98-3466 16:20-0500Systolic blood mm[Hg] Los Grissom Other [facility] [employer] Other Encounters Encounter DateEncounter TypeCare ProviderFacilityStart: 04-28-2025 End: 07-29-4698dmzuzbhffnMBDCLG [facility] Start: 04-28-2025 End: 24-50-8857Toeigiszn for preprocedural cardiovascular examinationGEORSelect Medical Specialty Hospital - Trumbulltart: 04-08-2025 End: 83-48-2525cbijnnktdqYCJYI [facility] Hospitaltart: 02-10-2025 End: 41-21-9475jzolslskxxEvypjxmAlea Smith MDFacility:[facility] Start: 01-14-2025 End: 28-78-7337bskqywoxrpDxzqoby M Hoy MD Work Phone: [facility] Work Phone: Start: 01-14-2025 End: 24-72-4138Unymlbq encounter procedureRaeann Kirkpatrick MD-[facility] Work Phone: Start: 57-60-9174Pim-patient / Non-visitRaeann Kirkpatrick MD-[facility] [employer] Work Phone: Start: 12-09-2024 End: 84-35-0086rahkrozqsnEynzomjAngelique Smith MDFacility:[facility] Start: 10-11-2024 End: 74-15-3973rvmpusalqrBBZIBH [facility] Start: 10-07-2024 End: 76-91-5508qfvtrysnpnNuhnsvxAngelique Smith MDFacility:PM Sophie Start: 10-02-2024 End: 86-66-1432gnngnpbcmkWtjsylchaProMedica Bay Park Hospital Work Phone: Start: 10-02-2024 End: 12-10-3706Caaefru encounter procedureFircritical access hospital Physician [facility] Work Phone: Start: 09-09-2024 End: 04-08-8408uyguqtdkbzZRQJW ELATTARUniversity of Del Sol Medical Centertart: 09-09-2024 End: 96-87-1986jxcdxapsxmWOSDF ELATTARUniversity of Del Sol Medical Centertart: 08-08-2024 End: 28-46-3936onmvndqdviABUNK ELATTARUniversity St. David's Medical Centertart: 35-55-4535Aul-patient / Non-visitFirjayy [facility] Work Phone: Start: 89-28-5987jctigvimevZVPWVZScripps Mercy Hospitaltart: 81-84-3593euyyqqfqejKCRPBVEncino Hospital Medical Centertart: 70-11-5792iunvtpowyjRUDYQPScripps Mercy Hospital Start: 03-26-2024 End: 51-68-3317asfaqzxoulEkvckurzrProMedica Bay Park Hospital Work Phone: Start: 03-26-2024 End: 89-60-6915Gwbbumm encounter procedureNovant Health [facility]oy Work Phone: Start: 03-05-2024 End: 49-26-5186dxskbjqtndKhsvyhz R NILLFacility:GS BellmagaliueStart: 03-05-2024 End: 71-96-6022Fouyfsu encounter procedureMichael R NILL [phone]-Xvtfm [facility] Start: 01-22-2024 End: 33-45-1372Ytdnduqjbf and management of inpatientAMER ARI SANTOSH [facility] Centertart: 86-68-7207ubowpprhqrQOLNICT M [facility] Ambulatory PPGStart: 09-30-2023 End: 23-16-0312Hvzzgmdsgk and management of inpatientSBRYAN Corey [facility] CenterStart: 07-11-2023 End: 33-08-3177nihnwneaiaRxpi Bakhous Other [employer] Other Start: 14-30-1622Pybtgnksi encounterAziz BakhousFPG NephrologyStart: 06-29-2023 End: 84-13-9141Cpdvbfkxiv and management of inpatientSlilia Randhawa [facility]art: 06-29-2023 End: 02-22-4140Mkjqexxypn and management of inpatientMD Yuri Santana Work Phone: [facility] Work Phone: Start: 04-04-2023 End: 62-46-2389paanfhohllBxuw Bakhous Other [facility] [employer] Other Start: 01-80-3861Djocog outpatient visit 25 minutes Aziz BakhousFPG NephrologyStart: 04-03-2023 End: 19-16-1867tbladfttrbPsyj Bakhous Other [facility] [employer] Other Start: 50-05-9105Ruhlgqidr encounterAziz BakhousFPG NephrologyStart: 12-12-2022 End: 68-97-7516afszakgqvpPnrf Bakhous Other [facility] [employer] Other Start: 30-72-5151Cakwtyguq encounterAziz BakhousFPG NephrologyStart: 12-08-2022 End: 84-77-9603zsdgwzffdiTwsj Bakhous Other [place] [employer] Other Start: 23-96-7940Xxvorjclw Dilcia Connors NephrologyStart: 11-22-2022 End: 49-51-3015azancrvgipLR YURI HOY .Facility:H8Urmgr: 11-22-2022 End: 73-20-8448qodzakwrdkHTTAFQQFGOUA LAKSHMIPATHY .Facility:D9Yvwts: 11-16-2022 End: 41-61-5395fbbkewwodhNV YURI HOY .Facility:U0Lnqtr: 11-04-2022 End: 80-96-5039hxhwcpipikVGKETXPALXTZ LAKSHMIPATHY .Facility:J8Vtujo: 11-03-2022 End: 94-84-1931halpbytoepZX YURI HOY .Facility:Z9Tsibf: 77-59-2701crsdbqqvmf SANTOS ROUSSEAU .Facility:N1Rwviv: 10-28-2022 End: 35-69-2059Jrtcbzcki department patient visitArthjuly Aime Helm [facility] Foundationtart: 10-28-2022 End: 34-21-3648Kiateymfh department patient visitMD Yuri Hoy Work Phone: [facility] Work Phone: Start: 10-27-2022 End: 83-80-6196thljphdthaHEJGRIPIPUEU LAKSHMIPATHY .Facility:G7Xleyv: 10-25-2022 End: 40-72-8575Itzrlztsov and management of inpatientDR YURI HOY .Facility:H1 Start: 10-19-2022 End: 96-30-3756nomnhwptlzJT YURI HOY .Facility:I1Hgyhb: 10-12-2022 End: 63-74-0304ujsbnemlpbCK YURI HOY .Facility:M1Efmou: 10-12-2022 End: 53-94-3083tkqmtuogfmSXCQ TAMLYN .Facility:L8Tymfw: 10-11-2022 End: 63-29-9066guoawcxhnbWVGUIPNLXIWA LAKSHMIPATHY .Facility:B3Zoovl: 10-05-2022 End: 12-12-4201cmarteevnsYX YURI HOY .Facility:M1Dbzte: 41-84-3507uqzieefjgm FELECIA TAMLYN .Facility:N2Nwvhg: 09-29-2022 End: 61-87-3007fbfmuaemomJX YURI HOY .Facility:K4Zdlrb: 09-27-2022 End: 73-79-6461jnugchazdjAkcr Tads Other [facility] [employer] Other Start: 54-56-5846Bdbvmq outpatient visit 25 minutes Wyariel [facility] Nephrology ClydeStart: 09-21-2022 End: 96-23-7862pwuubiiureLY YURI HOY .Facility:J7Kjbdn: 09-20-2022 End: 15-75-1755xtpouflrgvEKYPKOTQPILC LAKSHMIPATHY .Facility:J2Wnmzn: 09-19-2022 End: 25-17-5815ubevstvhlqWF YURI HOY .Facility:H7Tizad: 09-19-2022 End: 82-15-5289knmjupbvqvWGPQ BAKHOUSFacility:Q3Vmwei: 08-24-2022 End: 55-20-5852ngmcvfkoxjRJ YURI HOY .Facility:I8Vmmcq: 08-23-2022 End: 46-90-6296tzejsluryyXzyivkg [place] Other [facility] [employer] Other Start: 02-81-9215Fmvmrs outpatient new 30 minutes SueLa Palma Intercommunity HospitalFPG Luce OrthopedicsStart: 08-16-2022 End: 83-99-6672bpapapfykuVE YURI HOY .Facility:U1Cxbtg: 08-06-2022 End: 51-63-7061wcjrxlkwvqJLTRBF DIAB .Facility:L1Juqsa: 07-27-2022 End: 31-38-2801zwwkimueugGX YURI HOY .Facility:I2Rxqia: 07-27-2022 End: 66-62-4467ykjrxqnlvpCY YURI HOY .Facility:D7Otsdf: 06-29-2022 End: 19-59-0089jpsozyaflqWY YURI HOY .Facility:V5Liuyt: 06-16-2022 End: 48-87-7724Cdddppdbkg and management of inpatientDR YURI HOY .Facility:H1 Start: 06-07-2022 End: 78-16-7473wfdzjlphmeMO YURI HOY .Facility:U6Hcbue: 05-26-2022 End: 48-48-6040chlqpywshlOJ YURI HOY .Facility:W6Qdxcz: 05-17-2022 End: 93-86-6594vqixhqecufNC YURI HOY .Facility:X4Pzoje: 05-03-2022 End: 52-94-9112xdkrbmmrjwCY YURI HOY .Facility:R3Rhnfl: 04-28-2022 End: 25-28-8710frthukejtrDV YURI HOY .Facility:W0Xdksb: 04-28-2022 End: 05-83-8309lvjxkhsvriEH YURI HOY .Facility:O5Zkswu: 04-12-2022 End: 66-41-9548tvpzaccqolFbph Bakhous Other [place] [employer] Other Start: 81-69-5777Qgixqc outpatient visit 25 minutes [facility] Nephrology ClydeStart: 06-35-9952zqaqfaohdbNK YURI HOY . Facility:E0Jmmiy: 03-31-2022 End: 97-76-2515hpypvxsjwbRZ YURI HOY .Facility:Z5Vrykk: 03-03-2022 End: 81-18-1768orovbhzfroFD YURI HOY .Facility:V1Upluq: 01-27-2022 End: 71-68-7067ibrnwnfuczJJ YURI HOY .Facility:D5Vaukd: 01-27-2022 End: 72-56-4647rsrogzxkdoJD YURI HOY .Facility:A6Gutmz: 01-19-2022 End: 61-15-7424dusyftlgxjHERXP [facility] Hospital[facility]:N6Psaek: 01-11-2022 End: 89-14-3739hoeqpyiuorCU YURI HOY .Facility:V8Ycbya: 01-10-2022 End: 06-40-3858eehjllfysvBqgwt Fabiolacility:[facility]: 01-06-2022 End: 46-87-2023adipnnryalYQ YURI HOY .Facility:V1Nocmc: 12-30-2021 End: 95-19-6748bzwrvbtsajZV YURI HOY .Facility:T9Mwtii: 12-23-2021 End: 08-35-6641widyhbbxirWSSN DEJESUS .Facility:V3Jcdzt: 12-07-2021 End: 78-03-5983vxtqqsnkfyUX YURI HOY .Facility:M8Lqiji: 12-07-2021 End: 64-24-4302lguaguzwtyYQ YURI HOY .Facility:P6Peoyh: 08-19-2021 End: 07-72-4989xneolhmwdaHWTWE Deepak SOHNFacility:[facility]tart: 06-16-2021 End: 87-33-4092aizslvbjczJfyno Elashi Other [facility] [place] [facility] Other Start: 31-13-1826Dwixey outpatient visit 25 minutes [facility] Kaitlynn NephrologyStart: 01-14-2019 End: 72-77-1408Vajxqck [facility] Start: 12-03-2018 End: 88-62-6241Carnaoq encounter [facility] Procedures DateProcedureProcedure DetailPerforming ClinicianStart: 71-44-7719QI of head without contrastMD Yuri Hoy Work Phone: Start: 40-31-4276Zljsg chest X-rayMD Yuri Hoy Work Phone: [phone]: 53-35-6062Rzoqbyovj of implantable venous access portMichael NILL Start: 17-28-7151GSDUYOHYC PATIENTWADE art: 89-52-0863LMLP NPO, NOWNIRMAL art: 90-14-7388QGTC CODEWADE art: 87-02-8316HLBGFRVH OXYGEN THERAPY PROTOCOLWA: 77-12-7993EBJXUY PHYSICIAN (SPECIFY)NIRMAL art: 34-88-0811IREDVNW COMMUNICATIONWADE Start: 21-21-6950OTMTKT INFORMED CONSENTWADE : 16-01-7997EJNDK SIGNS : 14-19-7987QYVLOTCSL PATIENTWADE : 21-25-1179WSMX NPO, NOWWAHI : 32-91-1132PAMD CODEDE : 91-75-8163WAKSVOAJ OXYGEN THERAPY PROTOCOLWA: 72-35-8343KKCXYX PHYSICIAN (SPECIFY)NIRMAL : 25-04-9441VWRZJAJ COMMUNICATIONWADE : 78-87-0980XVOQLQ INFORMED CONSENTWADE : 80-62-3814KEZCK SIGNSWA: 79-16-3720Qmeburjxd of implantable venous access portMichael NILL Start: 13-10-6441Ruut-en-Y - action (qualifier value) Migel NILL Arthroplasty of kneeMichael NILL Cardiac catheterizationMichael NILL Cervical arthrodesisMichael NILL Cervical laminectomyMichael NILL CholecystectomyMichael NILL Removal of implantable venous access portMichael NILL Repair of musculotendinous cuff of shoulderMichael NILL Plan of Treatment DateCare ActivityDetailAuthorStart: 76-00-0528PkzroqtgsPomerene Hospital Start: 77-29-1626Hfdwoefj admissionCleveland Clinic Foundationtart: 30-48-5533Hbpszhfm to nephrologistPomerene HospitalBlood chemistryPomerene HospitalPatient EducationOhiohealth Grove City [facility]tr Work Phone: Patient referralOhiohealth Grove City [facility] Work Phone: Renal function 1999 panel - Serum or PlasmaPomerene HospitalRenal function 1999 panel - Serum or PlasmaPomerene HospitalRenal function 1999 panel - Serum or PlasmaSaint [facility] Immunizations Immunization DateImmunizationNotesCare ZsmmloxmAkfdqvzc89-88-7347pscdamqev virus vaccine, unspecified formulationMichael NILL [phone]-KjiqmC[facility] Clinic [facility] 58-82-1821VJMF-CoV-2 (COVID-19) mRNAMUL.ORD![id number] NILL [phone]-SteaeC[facility] Clinic [facility] 73-86-6656ZGRK-CoV-2 (COVID-19) mRNA-1273 vaccineMichael NILL [phone]-VkfarC[facility] Clinic [facility]inte [facility] Comment on above:Result Comment: 2024-02-12: SOW9670-79-3223OKRH-MgP-8 (COVID- 19) mRNA-1273 vaccineMichael NILL [phone]-NbehmCleveland Clinic [facility]inte Hospital 97-72-3777fvrfrpthsziy conjugate vaccine, 13 valentMichael NILL [phone]-ObsrqOhiohealth Hard[facility] Hospital BellevueNEGATED: Highlighted row has not occurred!71-56-0651nnyvefnlg virus vaccine, unspecified formulationMichael NILL [phone]-NihgkOhiohealth [facility]in [facility] Hospital [facility] Payers DatePayer CategoryPayerPolicy [id number] [id number]-[id number] [id number] 2018Unknown [id number] 2.16.840.1.917769.3.579.2. [id number] 2.16.840.1.883338.3.579.2.46423-44-2040Soxqppa81758406 2.16.840.1.037386.3.579.2.98448-31-9039Zzcedbp57840621 2.16840.1.056843.3.579.2.12789-24-2942Cindyog0244612 2.16840.1.059668.3.579.2.26437-58-2521Rffrvwb0284606 2.840.1.301251.3.579.2.95885-58-2559Axuekvu5120063 2.840.1.489558.3.579.2.67882-86-8080Goeeanc0456227 2.840.1.143133.3.579.[id number] 2..840.1.730799.3.579.2.29370-90-5553Rlqcnha1810407 2.16.840.1.425680.3.579.2.14966-90-7030Vgtxwsr9069884 2.16840.1.077426.3.579.2.79833-84-4781Qpvahfz9236149 2.16840.1.202801.3.579.2.78122-44-8782Vqvuzdz6946317 2.16.840.1.480406.3.579.2.61246-31-0627Zjirkat7438755 2.16.840.1.568889.3.579.2.78670-84-2443Uyxczvy9514412 2.16840.1.490706.3.579.2.84197-27-3260Yoxdzje4855815 2.16.840.1.411186.3.579.2.61328-66-0538Yzrdias7056057 2.16.840.1.223654.3.579.2.37105-13-7352Pliscag7196143 2.16.840.1.902736.3.579.2.98720-01-7606Ivjnamr5386594 2.16.840.1.557207.3.579.2.56618-68-0942Ykjyoiu0198254 2.16.840.1.125749.3.579.2.49420-53-6027Aolhfjq5962743 2.16.840.1.451114.3.579.2.29991-89-8651Pthiyxo4371996 2.16840.1.820655.3.579.2.80856-39-9506Dbaphkm9979077 2.16.840.1.844991.3.579.2.59126-41-2684Dycydoz0879769 2.16.840.1.624507.3.579.2.99914-71-6253Qexbvue0439732 2.16.840.1.244879.3.579.2.16982-92-7270Ylcfezn3734198 2.16.840.1.115848.3.579.2.70481-14-3126Paeehag0261604 2.16.840.1.339790.3.579.2.99311-65-4490Glnpcxg1915536 2.16.840.1.202455.3.579.2.56081-60-7803Wcxniib8940150 2.16.840.1.125388.3.579.2.48984-78-4051Blclano3437106 2.16.840.1.499591.3.579.2.18644-94-3612Ufbvxdk4842280 2.16.840.1.915462.3.579.2.48168-06-3036Pycsahu4849526 2.16.840.1.550241.3.579.2.42108-30-5378Vsxaoxf1469204 2.16840.1.564809.3.579.2.09199-92-6629Jykwxqh2252525 2.16840.1.246062.3.579.2.01660-68-1619Chpltvs5293457 2.840.1.109659.3.579.2.96421-74-9115Hiemsxr0521288 2.840.1.238555.3.579.2.18405-45-7595Qsumasm5718454 2.840.1.445607.3.579.2.94658-11-7260Gunvxid7074832 2.840.1.007618.3.579.2.04009-89-3396Aafbolv8707534 2.840.1.302345.3.579.2.15141-05-8627Slkmrpg5982229 2.840.1.353275.3.579.2.60454-54-6954Ztfdmgo9356012 2.840.1.800768.3.579.2.85279-83-3080Bkltvsb5508306 2.16840.1.808313.3.579.2.04094-57-1218Lyzahca9960484 2.16840.1.982338.3.579.2.04994-35-0193Jvynnmo2295990 2.16840.1.252940.3.579.2.76205-75-0829Yuadnrk6183149 2.16840.1.406804.3.579.2.50083-14-7445Hveliwz4974925 2.16840.1.628703.3.579.2.27939-11-6333Orsynel8333534 2.16840.1.107774.3.579.2.84781-56-7819Pptdfvp1118433 2.840.1.086623.3.579.2.88672-58-9753Zubratw4024547 2.840.1.173754.3.579.2.77829-25-4732Wceyqfz5953562 2.840.1.920152.3.579.2.96598-46-2471Xffbkdf14224663 2.840.1.105515.3.579.2.753526-90-4805Vfiqpsy08325850 2.840.1.291937.3.579.2.11589-91-4467Rrkqyhg518883450 2.840.1.268887.3.579.2.17003-33-6891Sbmbpvb068601984 2.840.1.373004.3.579.2.63422-90-5566Nxlqhgs99316920 2.840.1.454820.3.579.2.900654-18-1267Mxznqrp88422934 2.840.1.500826.3.579.2.420353-02-2641Ehsupus80925220 2.840.1.121402.3.579.2.309055-03-2332Omxgext91764533 2.840.1.242283.3.579.2.309045-93-7847Gmchdwo781745980 2.840.1.244297.3.579.2.53414-03-4731Jswkpvs335076816 2..840.1.147246.3.579.2.46198-10-5561Vdifqxr959180945 2.16.840.1.172765.3.579.2.196 [id number] 2.16.840.1.450624.19UnknownAnthem /[id number] 2t885m13-a1l6-6w8g-o32j-857173r9w10wAtlclme38233998 2.840.1.490986.3.579.2.140Ehkmwxx35506942 2.0.1.519421.3.579.2.531 Social History DateTypeDetailFacilityUnknown if ever smokedNort US Biologic Other Sex Assigned At [facility] Start: 10-28-2022 End: 95-31-5619Ixcnfef smoking status NHISNever smoked tobacco (finding) [facility]: 19-21-9129Ybj Assigned At [facility] CenterTobacco smoking statusNeCity Hospitaltart: 61-69-5976EmiFfdkpp (finding)[facility] Goals DatePatient GoalDesired Activity/State Functional Status UuwfUdfaokjateVtjhzoAitlfrry19-04-8070Egmkxcidwp StatusN/AFMedina Hospital01-08-2024Functional statusPatient at BaselineHocking [facility] Work Phone: Mental Status UsbzYfvzeltynhUkbtxpBijeyupg68-89-3999Wjtfgiqjx functionCognitive Status Patient at BaselineHocking [facility] Work Phone: Clinical Notes 06-16-2021 to 04-28-2025 Note Date & HjzkIugqQywixrub69-23-3185 NoteUT Cardiology - [facility] Subjective Mabel Moser is a 65 y.o. year old female patient being seen for 6 month follow up. Patient states she is having Left shoulder replacement surgery at [facility] May 28. Dr. Reza Patient states she has had an increase [...] left shoulder Chronic kidney disease, stage 3b (CMS/HCC) Fall Family History Problem Relation Name Age [...] In the past she was admitted to [facility] in 2019 with fluid overload [...] pressures and her blood work showed acute re (more content not included)...[facility]10-14-2025 Note Attestation signed by Carlos Reza MD at 04/09/2025 8:17 AM I personally saw and examined the patient on the same date of service as resident/medical student . I discussed the findings and therapeutic plan with the resident/fellow . I agree with the documentation, except for any edits/updates below. Teaching Physician's Revisions: No revisions Orthopedic Surgery Subjective Follow-up of the Left Shoulder 04/08/25 Mabel Moser is a 65 y.o. year old female presenting for evaluation of left shoulder pain which been present for multiple years. She had been seen by an outside provider for this shoulder. There is no injury at the time of symptom onset. She had completed a trial of physical therapy for 6 weeks and completed an injection without any improvement. Now she states her pain is primarily anteriorly and with motion primarily overhead activity. She also struggles to get her arm overhead because of the limitation of motion. Denies any numbness/tingling. Denies any additional injuries. History Surgical History[1] Medical History[2] Allergies[3] Current Outpatient Medications Medication Instructions albuterol 90 mcg/actuation inhaler 2 puffs, inhalation, Every 6 hours PRN ALPRAZolam (XANAX) 0.5 mg, oral, 2 times daily PRN amitriptyline (ELAVIL) 300 mg, oral, Nightly ARIPiprazole (ABILIFY) 2 mg, oral, Daily aspirin 81 mg, oral, Once atorvastatin (Lipitor) 40 mg tablet azelastine (Astelin) 137 mcg (0.1 %) nasal spray 1 spray, Each Nostril, 2 times daily, Use in each nostril as directed bumetanide (BUMEX) 2 mg, oral, 2 times daily, Take a 3rd dose at noon as needed for signs of fluid retention including worsening edema and weight gain yblltyuacn-hlgmibjrgvdva-rczn 50-325-40 mg tablet 1 tablet, oral butorphanol (Stadol) 10 mg/mL nasal spray 1 spray, Each Nostril calcitriol (ROCALTROL) 0.5 mcg, oral, Daily calcium acetate (PHOSLO) 667 mg, oral, 2 times daily carvedilol (COREG) 6.25 mg, oral, 2 times daily with meals cyanocobalamin (Vitamin B-12) 1,000 mcg/mL injection 1 mL Injection IM every month for 90 days desvenlafaxine (PRISTIQ) 100 mg, oral, Daily doxepin (SINEquan) 10 mg capsule DULoxetine (CYMBALTA) 60 mg, oral, 2 times daily Eliquis 5 mg, oral, 2 times daily Entresto 49-51 mg tablet 1 tablet, oral, 2 times daily ergocalciferol (Vitamin D-2) 1.25 MG (23227 Units) capsule 1 capsule escitalopram (Lexapro) 20 mg tablet fentaNYL (Duragesic) 100 mcg/hr 1 patch, transdermal, Over 72 hours fluticasone furoate-vilanteroL (Breo Ellipta) 100-25 mcg/dose inhaler 1 puff, Every 24 hours gabapentin (NEURONTIN) 100 mg, oral, 3 times daily hydrOXYzine HCL (Atarax) 25 mg tablet hyoscyamine (LEVSIN SL) 0.125 mg, sublingual ipratropium-albuteroL (Duo-Neb) 0.5-2.5 mg/3 mL nebulizer solution 3 mL, nebulization, 3 times daily PRN levothyroxine (SYNTHROID, LEVOXYL) 100 mcg, oral, Daily linaCLOtide (LINZESS) 290 mcg, oral, Daily before breakfast, Every other day liothyronine (CYTOMEL) 25 mcg, oral, Daily loratadine (CLARITIN) 10 mg, oral, Daily nystatin (Mycostatin) 100,000 unit/gram powder ondansetron ODT (Zofran-ODT) 4 mg disintegrating tablet oxyCODONE-acetaminophen (Percocet) 5-325 mg tablet 1-2 tablets, oral, Every 6 hours PRN pantoprazole (ProtoNix) 40 mg EC tablet Every 24 hours pramipexole (Mirapex) 1 mg tablet Every 24 hours primidone (MYSOLINE) 150 mg, oral, Nightly rosuvastatin (CRESTOR) 20 mg, oral, Daily sevelamer carbonate (RENVELA) 800 mg, oral, 3 times daily with meals, Swallow tablet whole; do not crush, break, or chew. spironolactone (ALDACTONE) 50 mg, oral, 2 times daily tiZANidine (Zanaflex) 4 mg tablet torsemide (DEMADEX) 50 mg, oral, 2 times daily Objective General: There is no height or weight on file to calculate BMI. No acute distress, comfortable Respiratory: Unlabored breathing on RA, no cough Cardiovascular: Warm well perfused extremities Psych: Appropriate mood behavior Left Shoulder: Inspection- no ecchymosis, no edema, no winging, no atrophy Tender to palpation over biceps tendon and glenohumeral joint Nontender to palpation over AC joint Shoulder ROM: Flexion- 80??? Abduction- 80??? External Rotation- 10??? Internal Rotation- 10 Strength: Flexion 5/5 Abduction 5/5 External Rotation 5/5 Internal Rotation 5/5 Sensation: intact from C4-T1 dermatomes Stability: Stable to anterior and posterior loading Shoulder Special Tests : Speed's - Positive and Jose's Empty Can - Positive Spurling's: Negative Imaging personally reviewed and our interpretation: Radiographs of the left shoulder were reviewed which demonstrate superior migration of the humeral head within the glenohumeral joint. There is sclerotic changes with subchondral cyst formation with (more content not included)... [facility]04-18-2025 NoteUT Cardiology - [facility] Subjective Mabel Moser is a 64 y.o. year old female patient being seen for 6 month follow up . Patient states she saw the Phototypesetter Operator last week and he took her off [...] C heart failure with preserved ejection fraction ([facility]/HCC) H/O gastric bypass Gouty arthropathy Gastroesophageal reflux [...] cerebral infarction (CMS/HCC) Chronic congestive heart failure ([facility]/HCC) Fall at home, initial encounter Irritable bowel [...] In the past she was admitted to [facility] in 2019 with fluid overload [...] pressures and her blood (more content not included)...[facility]03-17-2025 Note Orthopedic Surgery Visit Description: New patient [...] Anxiety Arthritis Asthma CHF (congestive heart failure) ([facility]) Coronary artery disease Depression Gastroenteritis Heart valve disease Hypertension Kidney failure Lumbar spondylolysis Stroke (CMS/[facility]) Objective General: BMI 41.34 General: No acute [...] satisfaction. Pepito Almeida MD Orthopedic Surgery, PGY-5 [facility] Pager: [phone] 09/09/24 This note was created with the [...] may be an additional personal documentation from me.[facility]09-10-2024 NoteGeneral Surgery Office/Clinic Note Chief Complaint consultation for nonhealing skin [...] swallowing difficulties, no hearing loss, no ear infection(s),no nose bleeds. Cardiovascular: normal blood pressure, no [...] Vikki-en-Y (06/26/1999), Cardiac catheterization, Cervical laminectomy, Cervical spinalfusion, Cholecystectomy, Knee replacement, Removal of implantable venous [...] tab(s), Oral, BID butorphanol 10 mg/mL Nasal [place], 1 spray(s), Nasal, Daily, PRN cyanocobalamin 1000 [...] Oral, BID Fioricet or (more content not included)...[facility] HospitalComment on above:Result Comment: Electronically Signed By: FAYE ASCENCIO, Migel Cruz\Date and Time Signed: 03/05/24 14:27 [id number] Progress note Author Raeann [facility] July 03, 2023 12:18pmNote Date/TimeJan2023 12:18pm[place] [address] Nephrology Progress Note Signed Patient: Mabel Moser MR#: [id number] : 1960 Acct:[id number] Age/Sex: 63 / F Adm Date: 4 Loc: Room: [address] [place] [address] Type: ADM IN Attending Dr: Jim Randhawa [...] be on room air. Blood pressure is well- controlled. Remains on Bumex 1 mg IV twice [...] Mg Tablet) 150 mg PO QHS [facility] Stop: 06/29/24 21:59 Last Admin: 07/02/23 21:00 Dose: 150 mg Aripiprazole (Aripiprazole 2 Mg Tablet) 2 mg PO DAILY [facility] Stop: 06/29/24 08:59 Last Admin: 07/03/23 08:13 Dose: 2 mg Bisacodyl (Bisacodyl 5 Mg Tablet.) 10 mg PO DAILY PRN PRN Reason: Constipation Stop: 06/28/24 21:34 Bumetanide (Bumetanide 1 Mg/4 Ml Vial) 1 mg IV-PUSH BID@0800,1600 [facility] Stop: 06/29/24 07:59 Last Admin: 07/03/23 08:14 Dose: 1 mg Calcium Acetate (Calcium Acetate 667 Mg Capsule) 667 mg PO BID.WITH.MEALS [facility] Stop: 06/29/24 07:59 Last Admin: 07/03/23 08:13 Dose: 667 mg Duloxetine HCl (Duloxetine 60 Mg Capsule.) 120 mg PO DAILY [facility] Stop: 06/29/24 08:59 Last Admin: 07/03/23 08:13 Dose: 120 mg Fentanyl (Fentanyl Patch 100 Mcg/Hour Patch.Td72) 100 mcg TRANSDERML Q72H [facility]; Protocol Last Admin: 07/03/23 08:12 Dose: 100 mcg Ferrous Sulfate (Ferrous Sulfate 324 Mg Tablet.) 324 mg PO DAILY [facility] Stop: 06/29/24 08:59 Last Admin: 07/03/23 08:13 Dose: 324 mg Gabapentin (Gabapentin 100 Mg Capsule) 100 mg PO TID [facility] Stop: 06/29/24 08:59 Last Admin: 07/03/23 08:13 Dose: 100 mg Guaifenesin/Dextromethorphan (Guaif/Dextromethorphan Syrup 10 Ml Udc) 10 ml PO Q8H PRN PRN Reason: Cough Stop: 06/28/24 21:34 Heparin Sodium (Porcine) (Heparin 5,000 Unit/Ml Vial) 5,000 unit SUBCUT Q12HR [facility] Stop: 06/29/24 08:59 Last Admin: 07/03/23 08:14 Dose: 5,000 unit Levothyroxine Sodium (Levothyroxine 100 Mcg Tablet) 100 mcg PO DAILY@0630 [facility] Stop: 06/29/24 06:29 Last Admin: 07/03/23 06:23 Dose: 100 mcg Linaclotide (Linaclotide 290 Mcg Capsule) 290 mcg PO Q48HR [facility] Stop: 06/29/24 08:59 Last Admin: 07/02/23 08:59 Dose: 290 mcg Liothyronine Sodium (Liothyronine 25 Mcg Tablet) 25 mcg PO DAILY@0630 [facility] Stop: 06/29/24 10:59 Last Admin: 07/03/23 06:23 Dose: 25 mcg Loratadine (Loratadine 10 Mg Tablet) 10 mg PO DAILY PRN PRN Reason: Allergy Symptoms Stop: 06/29/24 06:54 Melatonin (Melatonin 5 Mg Tablet) 5 mg PO QHS PRN PRN Reason: Insomnia Stop: 06/28/24 21:34 Metoprolol Tartrate (Metoprolol Tartrate 25 Mg Tablet) 25 mg PO BID [facility] Stop: 06/29/24 20:59 Last Admin: 07/03/23 08:14 Dose: 25 mg Ondansetron HCl (Ondansetron 4 Mg/2 Ml Vial) 4 mg IV-PUSH Q8H PRN PRN Reason: Nausea And Vomiting Stop: 06/28/24 21:34 Oxycodone/Acetaminophen (Oxycodone/Acetaminophen 5-325 Mg Tablet) 2 tab PO Q6H PRN PRN Reason: Pain Last Admin: 07/03/23 11:25 Dose: 2 tab Pantoprazole Sodium (Pantoprazole 40 Mg Tablet.Dr) 40 mg PO BID [facility] Stop: 06/29/24 08:59 Last Admin: 07/03/23 08:13 Dose: 40 mg Primidone (Primidone 50 Mg Tablet) 100 mg PO HS [facility] Stop: 06/29/24 21:59 Last Admin: 07/02/23 21:00 Dose: 100 mg Sevelamer Carbonate (Sevelamer Carbonate 800 Mg Tablet) 800 mg PO TID.WITH.MEALS [facility] Stop: 06/29/24 11:59 Last Admin: 07/03/23 [...] edema and progressive shortness of breath.EF%is not availablehowever patient on sacubitril/valsartan indicated of HFrEF. (3) [...] the patient 1 dose of Aranesp 60 mcgsubcu * Monitor daily intake and output and renal panel during hospital stay. Okay to discharge patient from nephrology standpoint with the Bumex 1 mg twice. Continue holding Entresto at discharge. The latter medication can be resumed asoutpatient when creatinine is back to baseline Documented By: Raeann Kirkpatrick MD 07/03/23 121 Signed By: <Electronically signed by Raeann Kirkpatrick MD> 07/03/23 1218 [facility] Work Phone: 1(254) 198-749501-07-2024 Progress note Author Jim Randhawa [facility] July 02, 2023 11:26amNote Date/TimeJan2023 11:26am[place] [address] Hospitalist Progress Note Signed Patient: Mabel Moser MR#: [id number] : 1960 Acct:[id number] Age/Sex: 63 / F Adm Date: 4 Loc: Room: [address] [place] [address] Type: ADM IN Attending Dr: Jim Randhawa DO Copies to: ~ Date of Service: 07/02/2023 Subjective Subjective Narrative: Seen and evaluated, sitting up in the chair and feels better, She states her breathing continues toimprove and her lower extremity edema is also improved. She states her legs are no longer as itchy,the there is 0 pain, the skin is [...] movements, +3 pitting edemain B/L le below theknee and +1-2 above the knee, overall worse [...] <Electronically signed by Jim Randhawa DO> 07/02/23 [facility]6 [facility] Work Phone: 1(891) 321-864401-07-2024 Progress note Author [facility] July 02, 2023 10:42amNote Date/TimeJan2023 10:42am[place] [address] Nephrology Progress Note Signed Patient: Mabel Moser MR#: [id number] : 1960 Acct:[id number] Age/Sex: 63 / F Adm Date: 4 Loc: Room: [address] [place] [address] Type: ADM IN Attending Dr: Jim Randhawa [...] Mg Tablet) 150 mg PO QHS [facility] Stop: 06/29/24 21:59 Last Admin: 07/01/23 21:21 Dose: 150 mg Aripiprazole (Aripiprazole 2 Mg Tablet) 2 mg PO DAILY [facility] Stop: 06/29/24 08:59 Last Admin: 07/02/23 08:55 Dose: 2 mg Bisacodyl (Bisacodyl 5 Mg Tablet.) 10 mg PO DAILY PRN PRN Reason: Constipation Stop: 06/28/24 21:34 Bumetanide (Bumetanide 1 Mg/4 Ml Vial) 1 mg IV-PUSH BID@0800,1600 [facility] Stop: 06/29/24 07:59 Last Admin: 07/02/23 08:55 Dose: 1 mg Calcium Acetate (Calcium Acetate 667 Mg Capsule) 667 mg PO BID.WITH.MEALS [facility] Stop: 06/29/24 07:59 Last Admin: 07/02/23 08:55 Dose: 667 mg Duloxetine HCl (Duloxetine 60 Mg Capsule.) 120 mg PO DAILY [facility] Stop: 06/29/24 08:59 Last Admin: 07/02/23 08:59 Dose: 120 mg Fentanyl (Fentanyl Patch 100 Mcg/Hour Patch.Td72) 100 mcg TRANSDERML Q72H [facility]; Protocol Last Admin: 06/30/23 09:31 Dose: 100 mcg Ferrous Sulfate (Ferrous Sulfate 324 Mg Tablet.) 324 mg PO DAILY [facility] Stop: 06/29/24 08:59 Last Admin: 07/02/23 08:55 Dose: 324 mg Gabapentin (Gabapentin 100 Mg Capsule) 100 mg PO TID [facility] Stop: 06/29/24 08:59 Last Admin: 07/02/23 08:55 Dose: 100 mg Guaifenesin/Dextromethorphan (Guaif/Dextromethorphan Syrup 10 Ml Udc) 10 ml PO Q8H PRN PRN Reason: Cough Stop: 06/28/24 21:34 Heparin Sodium (Porcine) (Heparin 5,000 Unit/Ml Vial) 5,000 unit SUBCUT Q12HR [facility] Stop: 06/29/24 08:59 Last Admin: 07/02/23 08:55 Dose: 5,000 unit Levothyroxine Sodium (Levothyroxine 100 Mcg Tablet) 100 mcg PO DAILY@0630 [facility] Stop: 06/29/24 06:29 Last Admin: 07/02/23 05:48 Dose: 100 mcg Linaclotide (Linaclotide 290 Mcg Capsule) 290 mcg PO Q48HR [facility] Stop: 06/29/24 08:59 Last Admin: 07/02/23 08:59 Dose: 290 mcg Liothyronine Sodium (Liothyronine 25 Mcg Tablet) 25 mcg PO DAILY@0630 [facility] Stop: 06/29/24 10:59 Last Admin: 07/02/23 05:48 Dose: 25 mcg Loratadine (Loratadine 10 Mg Tablet) 10 mg PO DAILY PRN PRN Reason: Allergy Symptoms Stop: 06/29/24 06:54 Melatonin (Melatonin 5 Mg Tablet) 5 mg PO QHS PRN PRN Reason: Insomnia Stop: 06/28/24 21:34 Metoprolol Tartrate (Metoprolol Tartrate 25 Mg Tablet) 25 mg PO BID [facility] Stop: 06/29/24 20:59 Last Admin: 07/02/23 [...] edema and progressive shortness of breath.EF%is not availablehowever patient on sacubitril/valsartan indicated of HFrEF. (3) [...] signed by MD [place] Grissom> 07/02/23 1042 [facility] Work Phone: 1(548) 641-218901-06-2024 Progress note Author Jim Randhawa [facility] July 01, 2023 1:52pmNote Date/TimeJan2023 1:37pmWilliams[place] [address] Hospitalist Progress Note Signed Patient: Mabel Moser MR#: [id number] : 1960 Acct:[id number] Age/Sex: 63 / F Adm Date: 4 Loc: Room: [address] [place] [address] Type: ADM IN Attending Dr: iJm Randhawa DO Copies to: ~ Date of [...] movements, +3 pitting edemain B/L le below theknee and +1-2 above the knee, overall worse [...] signed by Jim Randhawa DO> 07/01/23 1352 [facility] Work Phone: 1(524) 303-698401-06-2024 Progress note Author [facility] July 01, 2023 10:16amNote Date/TimeJan2023 10:16[place] [address] Nephrology Progress Note Signed Patient: Mabel Moser MR#: [id number] : 1960 Acct:[id number] Age/Sex: 63 / F Adm Date: 4 Loc: Room: [address] [place] [address] Type: ADM IN Attending Dr: iJm Randhawa DO Copies to: ~ Date of [...] Mg Tablet) 150 mg PO QHS [facility] Stop: 06/29/24 21:59 Last Admin: 06/30/23 21:17 Dose: 150 mg Aripiprazole (Aripiprazole 2 Mg Tablet) 2 mg PO DAILY [facility]OREN Stop: 06/29/24 08:59 Last Admin: 07/01/23 08:21 Dose: 2 mg Bisacodyl (Bisacodyl 5 Mg Tablet.) 10 mg PO DAILY PRN PRN Reason: Constipation Stop: 06/28/24 21:34 Bumetanide (Bumetanide 1 Mg/4 Ml Vial) 1 mg IV-PUSH BID@0800,1600 [facility] Stop: 06/29/24 07:59 Last Admin: 07/01/23 08:21 Dose: 1 mg Calcium Acetate (Calcium Acetate 667 Mg Capsule) 667 mg PO BID.WITH.MEALS [facility] Stop: 06/29/24 07:59 Last Admin: 07/01/23 08:20 Dose: 667 mg Duloxetine HCl (Duloxetine 60 Mg Capsule.) 120 mg PO DAILY [facility] Stop: 06/29/24 08:59 Last Admin: 07/01/23 08:20 Dose: 120 mg Fentanyl (Fentanyl Patch 100 Mcg/Hour Patch.Td72) 100 mcg TRANSDERML Q72H [facility]; Protocol Last Admin: 06/30/23 09:31 Dose: 100 mcg Ferrous Sulfate (Ferrous Sulfate 324 Mg Tablet.) 324 mg PO DAILY [facility] Stop: 06/29/24 08:59 Last Admin: 07/01/23 08:20 Dose: 324 mg Gabapentin (Gabapentin 100 Mg Capsule) 100 mg PO TID [facility] Stop: 06/29/24 08:59 Last Admin: 07/01/23 08:20 Dose: 100 mg Guaifenesin/Dextromethorphan (Guaif/Dextromethorphan Syrup 10 Ml Udc) 10 ml PO Q8H PRN PRN Reason: Cough Stop: 06/28/24 21:34 Heparin Sodium (Porcine) (Heparin 5,000 Unit/Ml Vial) 5,000 unit SUBCUT Q12HR [facility] Stop: 06/29/24 08:59 Last Admin: 07/01/23 08:21 Dose: 5,000 unit Levothyroxine Sodium (Levothyroxine 100 Mcg Tablet) 100 mcg PO DAILY@30 [facility] Stop: 06/29/24 06:29 Last Admin: 07/01/23 05:46 Dose: 100 mcg Linaclotide (Linaclotide 290 Mcg Capsule) 290 mcg PO Q48HR LOREN Stop: 06/29/24 08:59 Last Admin: 06/30/23 09:33 Dose: 290 mcg Liothyronine Sodium (Liothyronine 25 Mcg Tablet) 25 mcg PO DAILY@30 [facility] Stop: 06/29/24 10:59 Last Admin: 07/01/23 05:46 Dose: 25 mcg Loratadine (Loratadine 10 Mg Tablet) 10 mg PO DAILY PRN PRN Reason: Allergy Symptoms Stop: 06/29/24 06:54 Melatonin (Melatonin 5 Mg Tablet) 5 mg PO QHS PRN PRN Reason: Insomnia Stop: 06/28/24 21:34 Metoprolol Tartrate (Metoprolol Tartrate 25 Mg Tablet) 25 mg PO BID [facility] Stop: 06/29/24 20:59 Last Admin: 07/01/23 08:20 Dose: 25 mg Ondansetron HCl (Ondansetron 4 Mg/2 Ml Vial) 4 mg IV-PUSH Q8H PRN PRN Reason: Nausea And Vomiting Stop: 06/28/24 21:34 Oxycodone/Acetaminophen (Oxycodone/Acetaminophen 5-325 Mg Tablet) 2 tab PO Q6H PRN PRN Reason: Pain Last Admin: 07/01/23 03:35 Dose: 2 tab Pantoprazole Sodium (Pantoprazole 40 Mg Tablet.Dr) 40 mg PO BID [facility] Stop: 06/29/24 08:59 Last Admin: 07/01/23 08:21 Dose: 40 mg Primidone (Primidone 50 Mg Tablet) 100 mg PO HS [facility] Stop: 06/29/24 21:59 Last Admin: 06/30/23 21:17 Dose: 100 mg Sevelamer Carbonate (Sevelamer Carbonate 800 Mg Tablet) 800 mg PO TID.WITH.MEALS [facility] Stop: 06/29/24 11:59 Last Admin: 07/01/23 [...] Edema has improved. Shortness of breath did improveand she is currently on room air with pulse ox 100%. BN P was over this morning however still pending. This will be reviewed and medication will be adjusted as needed. * Blood pressure stable 123/85. Metoprolol was decreased to 25 mg twice a day. Sacubitril/valsartanstill on hold. Patient has been on ibuprofen as outpatient for backache is that was stopped. * Monitor daily intake and output and renal panel during hospital stay. Documented By: Los Grissom MD 07/01/23 1013 Signed By: <Electronically signed by MD Los Grissom> 07/01/23 1016 [facility] Work Phone: 1(349) 212-193301-05-2024 Progress note Author Jim Randhawa [facility] June 30, 2023 1:13pmNote Date/TimeJan2023 1:13pmWilliams[place] [address] Hospitalist Progress Note Signed Patient: Mabel Moser MR#: [id number] : 1960 Acct:[id number] Age/Sex: 63 / F Adm Date: 4 Loc: Room: [address] [place] [address] Type: ADM IN Attending Dr: Jim Radnhawa DO Copies to: ~ Date of Service: [...] movements, +3 pitting edemain B/L le below theknee and +1-2 above the knee, overall worse [...] 25 Mg Tablet PO 06/29/24 20:59 BID [facility] Ondansetron HCl 4 mg 06/29/23 21:35 Ondansetron [...] signed by Jim Randhawa DO> 06/30/23 1313 [facility] Work Phone: 1(581) 266-810301-05-2024 Consult note [facility] June 30, 2023 10:45amNote Date/TimeJan2023 10:26[place] [id number] Nephrology Consult Note Signed Patient: Mabel Moser MR#: [id number] : 1960 Acct:[id number] Age/Sex: 63 / F Adm Date: 4 Loc: Room: [address] [place] [address] Type: ADM IN Attending Dr: Jim Randhawa [...] and no additional complaints, except as documented [facility] Medical History CAD (coronary artery disease) [place] filter in place Hypertension Surgical History History [...] Mg Tablet) 2 mg PO DAILY [facility] Stop: 06/29/24 08:59 Last Admin: 06/30/23 09:30 Dose: 2 mg Bisacodyl (Bisacodyl 5 Mg Tablet.) 10 mg PO DAILY PRN PRN Reason: Constipation Stop: 06/28/24 21:34 Bumetanide (Bumetanide 1 Mg/4 Ml Vial) 1 mg IV-PUSH BID@0800,1600 [facility] Stop: 06/29/24 07:59 Last Admin: 06/30/23 09:31 Dose: 1 mg Calcium Acetate (Calcium Acetate 667 Mg Capsule) 667 mg PO BID.WITH.MEALS [facility] Stop: 06/29/24 07:59 Last Admin: 06/30/23 09:30 Dose: 667 mg Duloxetine HCl (Duloxetine 60 Mg Capsule.) 120 mg PO DAILY [facility] Stop: 06/29/24 08:59 Last Admin: 06/30/23 09:30 Dose: 120 mg Escitalopram Oxalate (Escitalopram 20 Mg Tablet) 20 mg PO DAILY [facility] Stop: 06/29/24 08:59 Last Admin: 06/30/23 09:31 Dose: 20 mg Fentanyl (Fentanyl Patch 100 Mcg/Hour Patch.Td72) 100 mcg TRANSDERML Q72H [facility]; Protocol Last Admin: 06/30/23 09:31 Dose: 100 mcg Ferrous Sulfate (Ferrous Sulfate 324 Mg Tablet.) 324 mg PO DAILY [facility] Stop: 06/29/24 08:59 Last Admin: 06/30/23 09:31 Dose: 324 mg Gabapentin (Gabapentin 100 Mg Capsule) 100 mg PO TID [facility] Stop: 06/29/24 08:59 Last Admin: 06/30/23 09:31 Dose: 100 mg Guaifenesin/Dextromethorphan (Guaif/Dextromethorphan Syrup 10 Ml Udc) 10 ml PO Q8H PRN PRN Reason: Cough Stop: 06/28/24 21:34 Heparin Sodium (Porcine) (Heparin 5,000 Unit/Ml Vial) 5,000 unit SUBCUT Q12HR [facility] Stop: 06/29/24 08:59 Last Admin: 06/30/23 09:32 Dose: 5,000 unit Levothyroxine Sodium (Levothyroxine 100 Mcg Tablet) 100 mcg PO DAILY@0630 [facility] Stop: 06/29/24 06:29 Last Admin: 06/30/23 05:55 Dose: 100 mcg Linaclotide (Linaclotide 290 Mcg Capsule) 290 mcg PO Q48HR [facility] Stop: 06/29/24 08:59 Last Admin: 06/30/23 09:33 Dose: 290 mcg Liothyronine Sodium (Liothyronine 25 Mcg Tablet) 25 mcg PO DAILY L[facility] Stop: 06/29/24 08:59 Loratadine (Loratadine 10 Mg [...] Mg Tablet.) 40 mg PO BID [facility] Stop: 06/29/24 08:59 Last Admin: 06/30/23 09:31 Dose: 40 mg Primidone (Primidone 50 Mg Tablet) 100 mg PO HS [facility] Stop: 06/29/24 21:59 Sevelamer Carbonate (Sevelamer Carbonate 800 Mg Tablet) 800 mg PO TID [facility] Stop: 06/29/24 08:59 Tizanidine HCl (Tizanidine [...] <Electronically signed by MD Los Grissom> 06/30/23 1048 [facility] Work Phone: 1(330) 526-584501-04-2024 History and physical note Author Beatriz Oh [facility] June 29, 2023 9:51pmNote Date/TimeJan2023 9:47pmWilliams[place] [address] Hospitalist H&P Signed Patient: Mabel Moser MR#: [id number] : 1960 Acct:[id number] Age/Sex: 63 / F Adm Date: 4 Loc: Room: [address] [place] [address] Type: ADM IN Attending Dr: Papito Garces [...] She denies having dysuria, hematuria, or frequency. [facility] Medical History CAD (coronary artery disease) [place] filter in place Hypertension Surgical History History [...] (Wellbutrin XL) 300 mg PO QAM 08/31/18 [HistoryConfirmed 08/31/18] ferrous sulfate 325 mg (65 mg iron) tablet 325 mg PO DAILY 08/31/18 [History Confirmed 08/31/18] fluticasone furoate 100 mcg-vilanterol 25 mcg/dose inhalation powder (Breo Ellipta) 1 inh inhalation DAILY 08/31/18 [History Confirmed 08/31/18] metoclopramide HCl 5 mg tablet (Reglan) 5 mg PO DAILY 08/31/18 [History Confirmed 10/28/22] metoprolol tartrate 25 mg tablet 50 mg PO BID 08/31/18 [History Confirmed 10/28/22] xpaisdzz-trtkbaa-vjhp-iron fum 18 mg-folic 600 mcg-vit K 80 [...] TID PRN Edema 10/28/22 [History Confirmed 10/28/22] nukagsgafc-docfqffikionf-pyfjasyi 50 mg-325 mg-40 mg capsule 1 cap [...] setting as: INPATIENT because of an expectation ofan over 2 midnight stay. Estimated length of stay (# of days): 3 Documented By: Beatriz Oh MD 06/29/23 1880 Signed By: <Electronically signed by Beatriz Oh MD> 06/29/23 2159 [facility] Work Phone: 1(165) 877-120310-10-2023 Evaluation note* Encounter Date Diagnosis Assessment Notes Treatment Notes Treatment Clinical Notes Mar, Hyperkalemia (ICD-10 - E87.5) This has resolved. Potassium is within normal limits despite being on ARB Mar,Hypertensive chronic kidney disease with stage 1 through stage 4 chronic kidney disease, or unspecified chronic kidney disease (ICD-10 - I12.9) Blood pressure target below 130/80. Blood pressure seems well controlled. Patient only on Entresto and Bumex for volume management. I asked the patient to continue monitor blood pressure at home and to follow low-salt diet Mar,Hyponatremia (ICD-10 - E87.1)This has resolved with the stopping hydrochlorothiazide Mar,HF (congestive heart failure) (ICD-10 - I50.9)CHF is clinically compensated on diuretics. Continue low-salt diet. Continue same dose of Bumex Mar,nemia in chronic kidney disease (ICD-10 - D63.1)Follows with hematology clinic. Last hemoglobin 11.0 g/dL. Mar,Secondary hyperparathyroidism of renal origin (ICD-10 - N25.81)PTH elevated at 140. 25-hydroxy vitamin D is within normal limit. There is no need for active vitamin D. I will continue to monitor PTH since the patient has advanced kidney Mar,Vitamin D deficiency (ICD-10 - E55.9)Patient is taking vitamin D supplement. 25-hydroxy vitamin D is within normal limit Mar,Migraine aura, persistent, intractable (ICD-10 - G43.519)Advised the patient to follow with [facility] neurology clinic Mar,hronic kidney disease, stage 3b (ICD-10 - N18.32)She has chronic kidney disease stage 3with variable serum creatinine related to diuretics Serum creatinine fluctuate between 1.2 to 1.8 mg deciliter. UA is benign. No proteinuria. Patient currently on Entresto I asked the patient to avoid NSAIDs completely. Blood pressure target is below 130/80. BP is close to target. Volume status well controlled. On Bumex Follow-up with the patient in 4 months Mar,Hyperphosphatemia (ICD-10 - E83.39)Continue PhosLo with meals [employer] Other 04-04-2023 Evaluation note* Encounter Date Diagnosis Assessment Notes Treatment Notes Treatment Clinical Notes Sep, Chronic kidney disease, stage 3a (ICD-10 - N18.31) She has [...] Follow-up with the patient in 4 months Sep,Hypertensive chronic kidney disease with stage 1 through stage 4 chronic kidney disease, or unspecified chronic kidney disease (ICD-10 - I12.9) Blood pressure target below 130/80. Uncontrolled blood pressure likely from intractable migraine. Fludrocortisone likely contributing to this elevated blood pressure. Patient is going to discuss withDr. Santana bout fludrocortisone I would continue same blood pressure medications. Advised the patient to follow a low-salt diet andto monitor her blood pressure at home Sep,Hyperkalemia (ICD-10 - E87.5)from KCl supplement. resolved with medical treatment. Ok to continue ARB. continue same diuretic Sep,Hyponatremia (ICD-10 - E87.1)Sodium level has been slightly low ranges between 130-135 mmol/L. Likely from hydrochlorothiazide. We will continue to monitor sodium level. Might have to stop hydrochlorothiazide or decrease the dose if sodium level falls below 130 mmol/L. Sep,HF (congestive heart failure) (ICD-10 - I50.9)CHF is clinically compensated on diuretics. Continue low-salt diet. Continue same dose of Bumex Sep,nemia in chronic kidney disease (ICD-10 - D63.1)Hemoglobin is stable between 9 and 10 g/dL on vitamin B12 injections. She follow-up with Dr. Liu. Sep,Secondary hyperparathyroidism of renal origin (ICD-10 - N25.81)PTH is within normal limit .25-hydroxy vitamin D is 75 Sep,Vitamin D deficiency (ICD-10 - E55.9)Patient is taking vitamin D supplement. 25-hydroxy vitamin D is within normal limit Sep,Migraine aura, persistent, intractable (ICD-10 - G43.519)Advised the patient to follow with [facility] neurology clinic [employer] [employer] Other 03-28-2023 NoteThe [facility] [id number] Evaluation note* Encounter Date Diagnosis Assessment Notes Treatment Notes Treatment Clinical Notes Jul, Contusion of right wrist, initia l encounter (ICD-10 - S60.211A) Patient placed in cock up wrist splint. Activities 2-5 lbs ADLs [employer] Other 12-13-2022 NoteThe [facility] [id number] NoteThe [facility] CenterTfkdqqlh54-64-0724 NoteThe [facility] [id number] Evaluation note * Encounter Date Diagnosis Assessment Notes Treatment Notes Treatment Clinical Notes Mar, Chronic kidney disease, stage 3a (ICD-10 - N18.31) She has [...] Follow-up with the patient in 6 months Mar,Hyperkalemia (ICD-10 - E87.5)This has resolved. On Bumex and hydrochlorothiazide. Patient currently on potassium supplement. Mar,Hyponatremia (ICD-10 - E87.1)Sodium level has been slightly low ranges between 130-135 mmol/L. Likely from hydrochlorothiazide. We will continue to monitor sodium level. Might have to stop hydrochlorothiazide or decrease the dose if sodium level falls below 130 mmol/L. Mar,HF (congestive heart failure) (ICD-10 - I50.9)CHF is clinically compensated on diuretics. Continue low-salt diet. Continue same dose of Bumex Mar,nemia in chronic kidney disease (ICD-10 - D63.1)Hemoglobin is stable between 9 and 10 g/dL on vitamin B12 injections. She follow-up with Dr. Liu. Mar,econdary hyperparathyroidism of renal origin (ICD-10 - N25.81)PTH is within normal limit .25-hydroxy vitamin D is 74 Mar,Vitamin D deficiency (ICD-10 - E55.9)Patient is taking vitamin D supplement. 25-hydroxy vitamin D is within normal limit Mar,Hypertensive chronic kidney disease with stage 1 through stage 4 chronic kidney disease, or unspecified chronic kidney disease (ICD-10 - I12.9) Blood pressure target below 130/80. Uncontrolled blood pressure likely from intractable migraine. Fludrocortisone likely contributing to this elevated blood pressure. Advised the [facility] I will try to reach to Dr. Santana's office about fludrocortisone I would continue same blood pressure medications. Advised the patient to follow a low-salt diet andto monitor her blood pressure at home Mar,Migraine aura, persistent, intractable (ICD-10 - G43.519)Advised the patient to follow with [facility] neurology clinic [employer] Other 08-04-2022 NoteThe [facility] [id number] NoteThe [facility] [id number] Evaluation note* Encounter Date Diagnosis Assessment Notes Treatment Notes Treatment Clinical Notes May, Chronic kidney disease, stage 3a (ICD-10 - N18.31) She has mild chronic kidney disease with variable serum creatinine related to diuretics and chroniccongestive heart failure. Serum creatinine is variable between 1-1.5 mg/dL according to volume status and blood pressure. Monitor renal function every 4 to 6 months or as needed. Patient has multiple electrolyte abnormalities related to diuretics. She gets blood work as outpatient almost weekly that is being reviewed and medications being adjusted by Dr. Yuri Santana May,Hyperkalemia (ICD-10 - E87.5) Potassium is up to 5.4 mEq/L. She was advised to decrease potassium supplement back to 1 a day. Shestill on low-dose bumetanide 1 mg p.o. daily for recurrent CHF. She is back on thiazide diuretics. She developed Hypernatremia with metolazone however it could be related to the volume overload. Monitor serum sodium and consider discontinuation of hydrochlorothiazide if she developed hyponatremia below 130. May,Hyponatremia (ICD-10 - E87.1) She had episodes of hyponatremia as low as 116 mmol/L when she was on metolazone and while she was sick with C. difficile colitis. Patient also has episodes of hypervolemic hyponatremia while she hasCHF. Sodium is reasonable at 132 mmol/L on bumetanide. May,HF (congestive heart failure) (ICD-10 - I50.9) CHF is clinically compensated on diuretics. Continue low-salt diet. She still has low potassium on potassium supplement. Patient developed significant hypotension with CHF medications. Sacubitril/valsartan was stopped. She takes fludrocortisone 0.2 mg daily to support blood pressure and avoid orthostatic hypotension. May,nemia in chronic kidney disease (ICD-10 - D63.1) Hemoglobin is stable between 9 and 10 g/dL on Procrit. She follow-up with Dr. Liu. May,econdary hyperparathyroidism of renal origin (ICD-10 - N25.81) [...] 667 mg twice a day with meals. May,Vitamin D deficiency (ICD-10 - E55.9) Check 25-hydroxy vitamin D with next blood work May,Hypertensive chronic kidney disease with stage 1 through stage 4 chronic kidney disease, or unspecified chronic kidney disease (ICD-10 - I12.9) Blood pressure is reasonably controlled and low-salt diet. She is off all diuretics metolazone, spironolactone and bumetanide. [employer] Other Discharge summary Author Jim Randhawa [facility] July 03, 2023 3:03pmNote Date/TimeJan2023 2:55pmM[place] [id number] Discharge Summary Signed Patient: Mabel Moser MR#: [id number] : 1960 Acct:[id number] Age/Sex: 63 / F Adm Date: 4 Loc: Room: [address] [place] [address]: Jim Randhawa DO Copies to: [...] was within acceptable limits given her baseline andshe was cleared by nephrology for discharge. Her lower extremity edema had subsided and she wasdischarged home with no medication changes other than the instructions to continue holding her Entresto with a repeat BMP later on this week and to follow-up with nephrology in their offices to resume herEntresto. Condition Condition at Discharge: Stable Time Spent [...] movements, +3 pitting edemain B/L le below theknee and +1-2 above the knee, overall worse [...] pm (Please keep your previously scheduled follow upappointment for the following date and time, please call to reschedule if needed.) Documented By: Jim Randhawa DO 07/03/23 1453 Signed By: <Electronically signed by Jim Randhawa DO> 07/03/23 1503 [facility] Work Phone: Evaluation + Plan note No data available for this section [facility] Sophie Evaluation noteNo assessment information available [facility] Work Phone: Evaluaedbl noteNo InformationNort [employer] Other Evaluvwbra note* Diagnosis Onset Date Resolution Status Acute heart failure acuteAKI (acute kidney injury)acuteAnemiachronicCKD (chronic kidney disease) stage 3, GFR 30-59 ml/minchronicHypertensionchronic [facility] Work Phone: Evaluation note* Diagnosis Onset Date Resolution Status CHF (congestive heart failure) acuteChronic kidney disease, stage 3bacuteFluid overloadacuteHyperkalemiaacute Secondary hyperparathyroidismacuteVitamin D deficiencyacuteAnemiachronic Hyponatremiachronic [facility] Work Phone: Evaluation note* Diagnosis Onset Date Resolution Status Admit Date CHF (congestive heart failure) acuteApril 2024 2:44pmChronic kidney disease, stage 3bacuteApril 2024 2:44pmFluid overloadacuteApril 2024 2:44pmHyperkalemiaacuteApril 2024 2:44pmSecondary hyperparathyroidismacuteApril 2024 2:44pmVitamin D deficiencyacuteApril 2024 2:44pmAnemiachronicApril 2024 2:44pm HyponatremiachronicApril 2024 2:44pm [facility] Work Phone: Evaluation note* Diagnosis Onset Date Resolution Status Admit Date CHF (congestive heart failure) acuteJuly 2024 11:05amChronic kidney disease, stage 3bacuteJuly 2024 11:05amFluid overloadacuteJuly 2024 11:05amHyperkalemiaacuteJuly 2024 11:05amSecondary hyperparathyroidismacuteJuly 2024 11:05amVitamin D deficiencyacuteJuly 2024 11:05amAnemiachronicJuly 2024 11:05am HyponatremiachronicJuly 2024 11:05am [facility] Work Phone: History general Narrative - Reported* Type Description Date Medical History dyspnea Medical HistoryedemaMedical Historyspinal stenosisMedical Historyback pain Medical HistoryGoutMedical HistorysyncopeMedical HistoryhypertensionMedical Historyanemia, iron deficientMedical Historykidney failureMedical History pneumoniaMedical History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Medical Historylow sodiumMedical HistoryBOWEL OBSTRUCTIONMedical HistoryHYPOKALEMIAMedical HistoryHYPONATREMIAMedical HistoryCOVID X 2 05/2020- 04/2021Medical HistoryC- DIFF 03/2021Medical HistorySTAPH urgical Historyrotator cuff tear repairSurgical HistoryhysterectomySurgical History appendectomySurgical Historygastric bypassSurgical Historyknee surgerySurgical Historyback [id number] HistoryRight total knee replacement-2017 Surgical HistoryHEART [id number] HistorySee aboveHospitalization HistoryFLUID [id number] [id number] Hospitalization HistoryLOW SODIUM3/19Hospitalization HistoryABNORMAL LABS, BOWEL RUHNDKDNCST19/2021Hospitalization NdlzuyjTJKCU28/2019Hospitalization History COVID04/2021 [employer] Other History general Narrative - Reported* Type Description Date Medical History dyspnea Medical HistoryedemaMedical Historyspinal stenosisMedical Historyback pain Medical HistoryGoutMedical HistorysyncopeMedical HistoryhypertensionMedical Historyanemia, iron deficientMedical Historykidney failureMedical History pneumoniaMedical History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Medical Historylow sodiumMedical HistoryBOWEL OBSTRUCTIONMedical HistoryHYPOKALEMIAMedical HistoryHYPONATREMIAMedical HistoryCOVID X 2 05/2020- 04/2021Medical HistoryC- DIFF 03/2021Medical HistorySTAPH urgical Historyrotator cuff tear repairSurgical HistoryhysterectomySurgical History appendectomySurgical Historygastric bypassSurgical Historyknee surgerySurgical Historyback [id number] HistoryRight total knee replacement2-2018 Surgical HistoryHEART [id number] HistoryROTATOR CUFF [id number] Hospitalization HistorySee aboveHospitalization HistoryFLUID [id number] Hospitalization [id number] HistoryLOW SODIUM3/19 Hospitalization HistoryABNORMAL LABS, BOWEL HXGCJHTOEBU54/2021Hospitalization GfjsiarUCISZ11/2019Hospitalization VyzpwtlQPQQN62/2021 [employer] Other History general Narrative - Reported* Type Description Date Medical History dyspnea Medical HistoryedemaMedical Historyspinal stenosisMedical Historyback pain Medical HistoryGoutMedical HistorysyncopeMedical HistoryhypertensionMedical Historyanemia, iron deficientMedical Historykidney failureMedical History pneumoniaMedical History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Medical Historylow sodiumMedical HistoryBOWEL OBSTRUCTIONMedical HistoryHYPOKALEMIAMedical HistoryHYPONATREMIAMedical HistoryCOVID X 2 05/2020- 04/2021Medical HistoryC- DIFF 03/2021Medical HistorySTAPH 04/2021Medical History ELEVATED POTASSIUM 09/19/2022Surgical Historyrotator cuff tear repairSurgical HistoryhysterectomySurgical HistoryappendectomySurgical Historygastric bypass Surgical Historyknee surgerySurgical Historyback -3548Ojzwtpmw History Right total knee replacement-2017Surgical HistoryHEART [id number] HistoryROTATOR CUFF [id number] HistorySee aboveHospitalization HistoryFLUID [id number] JcctyifZVZHLGSYPHD13-8375 Hospitalization HistoryLOW SODIUM09/11Hospitalization HistoryABNORMAL LABS, BOWEL GJQDJVPWCPP43/2021Hospitalization MiujlnkBRJRD94/2020Hospitalization History COVID04/2021Hospitalization HistoryELEVATED POTASSIUM LEVEL09/19/2022 [employer] Other Hospital Discharge instructions Additional Instructions Home health to manage: - PT/OT to eval and treat - Monitor VS routine - Dx. HTN - CHF assessments/education - Urinary assessments - Dx. CKD on LEEANN - Fall precautions - high fall riskH[facility] Work Phone: Hospital Discharge instructions No data available for this section [facility] Progress note No data available for this section [facility] Reason for referral (narrative)No reason for referral information availableMansfield Hospital Work Phone: Summary Purpose Family History No Family History Records Found Relationship Condition Age at Onset Recorded Date/T gama father Heart disease Unknown HypertensionUnknownDiabetes mellitusUnknownDeceasedUnknownfamily memberDeceased UnknownmotherHistory of strokeUnknownMalignant neoplasmUnknownFamily history of mental disorderUnknownHeart diseaseUnknown Advance Directives No Advanced Directives Records Found [...] section and content) DATE CREATED AUTHOR 01/14/2019 [facility] DATE CREATED AUTHOR AUTHOR'S ORGANIZ ATION 07/24/[address] [facility] DATE CREATED AUTHOR AUTHOR'S ORGANIZ ATION 01/17/2022 [facility] DATE CREATED AUTHOR AUTHOR'S ORGANIZ ATION 12/05/2022 [facility] DATE CREATED AUTHOR AUTHOR'S ORGANIZ ATION 08/04/2023 [facility] DATE CREATED AUTHOR AUTHOR'S ORGANIZ ATION 10/19/2023 [facility] DATE CREATED AUTHOR AUTHOR'S ORGANIZ ATION 03/07/2024 [facility] DATE CREATED AUTHOR AUTHOR'S ORGANIZ ATION 03/27/2024 [facility] DATE CREATED AUTHOR AUTHOR'S ORGANIZ ATION 06/05/2024 [facility] DATE CREATED AUTHOR AUTHOR'S ORGANIZ ATION 02/16/2025 [facility] DATE CREATED AUTHOR AUTHOR'S ORGANIZ ATION 04/29/2025 [facility] REASON FOR VISIT (unrecogniz ed [...] Care Provider Active Start: July 18, 2024 Adam Marin ProviderActiveStart: July 18, 2024 Team Status: Inactive Member Role Status Adriana Santana MD Primary Care Provider Active Start: October 02, 2024 End: October 02Adam Whitlock ProviderActiveStart: October 02, 2024 End: October 02, 2024 Team Status: Inactive Member Role Status Adriana Santana MD Primary Care Provider Active Alex Swenson ProviderActive Team Status: Inactive Member Role Status Dates Yuri Santana MD Primary Care Provider Active Justice Willett ProviderActiveLuiz Laird ProviderActive Los Grissom MDOther ProviderActive Team Status: Inactive Member Role Status Dates Yuri Santana MD Primary Care Provider Active Start: March 26, 2024 End: March 26Adam Whitlock ProviderActiveStart: March 26, 2024 End: March 26, 2024 Team Status: Active Member Role Status Dates Yuri Santana MD Primary Care Provider Active Start: January 02, 2025 Adam Marin ProviderActiveStart: January 02, 2025 Team Status: Inactive Member Role Status Adriana Santana MD Primary Care Provider Active Start: January 14, 2025 End: January 14Adam Whitlock ProviderActiveStart: January 14, 2025 End: January 14, 2025 [...] BE BASED ON THE PRIMARY CLINICAL RECORDS. [facility] [employer] provides no warranty or guarantee of the accuracy or completeness of information in this document.
--- OUTSIDE RECORDS SUMMARY | 2025-05-10 16:09 | XMS_ITS | Clinical Summary ---
Author Organization [facility] Address [address], [address] [place] [address] Care Team Providers Care Repairer Kiln Car Name Role Phone Yuri Godinez MD Primary Care Provider [phone] Allergies Active AllergyReactionsCriticalityNoted DateCommentsAmoxicillin-Pot Clavulanate Nausea And FbucrgwnAyh48/22/2019Povidone Kogret5009/07/2018Sulfa Antibiotics 09/07/2018 Medications MedicationSigDispense QuantityRefillsLast FilledStart DateEnd DateStatus fentaNYL (DURAGESIC) 100 MCG/HR Place 1 patch onto the skin every 72 hours.Active albuterol (PROVENTIL) (2.5 MG/3ML) 0.083% nebulizer solution Take 3 mLs by nebulization every 6 hours as needed for WheezingActive ALPRAZolam (XANAX) 0.25 MG tablet Take 2 tablets by mouth 2 times daily. Patient takes it 0.5 takes nightyActive azelastine (OPTIVAR) 0.05 % ophthalmic solution Place 1 drop into both eyes dailyActive calcium carbonate (TUMS) 500 MG chewable tablet Take 1 tablet by mouth 4 times dailyActive fluticasone-vilanterol (BREO ELLIPTA) 100-25 MCG/INH AEPB inhaler Inhale into the lungs as neededActive hydrOXYzine (VISTARIL) 25 MG capsule Take 1 capsule by mouth 4 times daily as needed for ItchingActive levothyroxine (SYNTHROID) 100 MCG tablet Take 1 tablet by mouth DailyActive metoclopramide (REGLAN) 5 MG tablet Take 1 tablet by mouth 3 times daily (before meals) As neededActive Multiple Vitamins-Minerals (THERAPEUTIC MULTIVITAMIN-MINERALS) tablet Take 1 tablet by mouth dailyActive ondansetron (ZOFRAN-ODT) 4 MG disintegrating tablet Take 1 tablet by mouth every 8 hours as needed for Nausea or VomitingActive oxyCODONE-acetaminophen (PERCOCET) 5-325 MG per tablet Take 2 tablets by mouth every 6 hours as needed for Pain (1-2 tablets).Active potassium chloride (MICRO-K) 10 MEQ extended release capsule Take 1 capsule by mouth as neededActive tiZANidine (ZANAFLEX) 4 MG tablet Take 1 tablet by mouth every 6 hours as needed Patient takes 2 tablets at night Active b complex vitamins capsule Take 1 capsule by mouth dailyActive bumetanide (BUMEX) 1 MG tablet Take 2 tablets by mouth 2 times daily Patient takes 4 tablets twice a day.Active rizatriptan (MAXALT-STEEL SPAR OPERATOR) 10 MG disintegrating tablet Take 1 tablet by mouth 3 times daily as needed for Migraine May repeat in 2 hours if neededActive citalopram (CELEXA) 40 MG tablet Take 0.5 tablets by mouth dailyActive liothyronine (CYTOMEL) 5 MCG tablet Take 5 tablets by mouth dailyActive apixaban (ELIQUIS) 2.5 MG TABS tablet Indications:DO NOT RESUME UNTIL 8 AMTake 2 tablets by mouth 2 times daily Indications: DO NOT RESUME UNTIL 8 AMActive primidone (MYSOLINE) 50 MG tablet Take 3 tablets by mouth nightlyActive amitriptyline (ELAVIL) 150 MG tablet Take 1 tablet by mouth nightlyActive spironolactone (ALDACTONE) 50 MG tablet Take 1 tablet by mouth daily Patient takes PRNActive metoprolol succinate (TOPROL XL) 50 MG extended release tablet Take 1 tablet by mouth dailyActive desvenlafaxine succinate (PRISTIQ) 50 MG TB24 extended release tablet Take 1 tablet by mouth dailyActive ARIPiprazole (ABILIFY) 2 MG tablet Take 1 tablet by mouth dailyActive pramipexole (MIRAPEX) 1 MG tablet Take 1 tablet by mouth DailyActive diclofenac sodium (VOLTAREN) 1 % GEL Apply topically 4 times daily as needed for PainActive aspirin 81 MG chewable tablet Take 1 tablet by mouth daily 30 tablet ctive iivwvsqcgj-mrrjsdnkkqevs-vopffvgl (FIORICET, ESGIC) 50-325-40 MG per tablet Indications:Vertebral artery dissectionTake 1 tablet by mouth every 4 hours as needed for Headaches Max Daily Amount: 6 tablets 180 tablet ctive atorvastatin (LIPITOR) 40 MG tablet Take 1 tablet by mouth nightly 30 tablet ctive Ergocalciferol (VITAMIN D) 37493 units CAPS Take 50,000 Units by mouth once a week 5 capsule 01/31/2024ctive Active Problems ProblemNoted DateDiagnosed DateS/P cervical spinal yfcajc2403/12/2024 Overview (03/12/2024): C1-2 Closed displaced fracture of first cervical vertebra with routine healing 03/12/2024MDD (major depressive disorder), recurrent episode, /02/2024 Compression fracture of C2 vertebra with delayed tuaewxf9701/22/2024History of yvxjhg4601/22/2024Other displaced dens fracture, tzwugjx1001/22/2024Syncope 01/22/2024Vertebral artery gnmuuvstnh11/29/2024losed nondisplaced fracture of second cervical lwwtjaap50/06/2024Fall at home, initial pkihnmhcx48/06/2024 Restless leg /06/2024eripheral vascular wmgbumj9109/30/2023Neuropathy 09/30/20239880Yuoxvuztdzjv72/06/8181Xpntudjiqc68/06/2024hronic kidney disease 09/30/2023HF (congestive heart failure)09/30/20232289Eyzqjdoaipio97/06/2024 Irritable bowel yoyojvln34/06/7169Cqmpwgjps24/06/2024ortical age-related cataract of left eye01/13/2019Cerebral artery occlusion with cerebral infarction 06/26/2011 Resolved Problems ProblemNoted DateDiagnosed DateResolved DatePre-operative cardiovascular qehdqzhszsn67/29/202408/ombined forms of age-related cataract of right eye Family History Medical HistoryRelationNameCommentsArthritisFatherHigh Blood PressureFather StrokeFatherArthritisMotherCancerMotherCoronary Art DisMotherDiabetesMotherHeart DiseaseMotherHigh Blood PressureMotherRelationNameStatusCommentsFatherMother Social History Tobacco UseTypesPacks/DayYears UsedDateSmoking Tobacco: NeverSmokeless Tobacco: NeverAlcohol UseStandard Drinks/WeekCommentsNever0 (1 standard drink = 0.6 oz pure alcohol)[facility] UtilitiesAnswerDate RecordedIn the past 12 months has the electric, gas, oil, or water company threatened to shut off services in your home?No01/22/2024UDIT-CAnswerDate RecordedFrequency of Alcohol ConsumptionNever 12/03/2018Average Number of DrinksNot on file12/03/2018Frequency of Binge DrinkingNot on file12/03/2018Hunger Vital SignAnswerDate RecordedWithin the past 12 months, you worried that your food would run out before you got the money to buymore.Never true01/22/2024Within the past 12 months, the food you bought just didn't last and you didn't have money to get more.Never true01/22/2024RAPARE - TransportationAnswerDate RecordedIn the past 12 months, has lack of transportation kept you from medical appointments or from getting medications?No 01/22/2024In the past 12 months, has lack of transportation kept you from meetings, work, or from getting things needed for daily living?No01/22/2024 Housing Stability Vital SignAnswerDate RecordedIn the last 12 months, was there a time when you were not able to pay the mortgage or rent on time?No01/22/2024In the last 12 months, how many places have you lived?In the last 12 months, was there a time when you did not have a steady place to sleep or slept in [place] (including now)?No01/22/2024Food InsecurityAnswerDate RecordedWithin the past 12 months, you worried that your food would run out before you got the money to buymore.Within the past 12 months, the food you bought just didn't last and you didn't have money to get more.Interpersonal Safety Domain Source: IP Abuse ScreeningAnswerDate RecordedPhysical abuseDenies 01/22/2024Verbal pyvsgAzikmi70/29/2024Emotional zesmyCpmmwl12/29/2024Financial sxzlsHhstdn66/29/2024Sexual vyyisImdyxh37/29/2024CommentsNoSex and Gender InformationValueDate RecordedSex Assigned at BirthNot on fileLegal Sex Vokeok5808/05/2012 10:51 AM ESTGender IdentityNot on fileSexual OrientationNot on file Last Filed Vital Signs Vital SignReadingTime TakenCommentsBlood Xlkyukys495/7809 8:43 AM EDT Ohnmn297503/12/2024 8:43 AM GGWYnouqhzinsz17.7 ??C (98 ??F)03/12/2024 8:43 AM EDT Respiratory Bhtr2506 3:31 PM EDTOxygen Vpzqzhckzd03%01/30/2024 3:31 PM EDTInhaled Oxygen Concentration--Llcmkx48.2 kg (212 lb)03/12/2024 8:43 AM EDT Decskc033.5 cm (5' 2.01 )03/12/2024 8:43 AM EDTBody Mass Index38.7609 8:43 AM EDT Plan of Treatment Health MaintenanceDue DateLast StoyEcfmxezqNsdutr89/31/1972Depression Monitoring 1974HIV wbpfsd7202/23/1977Hepatitis C evnyve0702/24/1980DTaP/Tdap/Td vaccine (1 - Tdap)1981Pap smear1983Cervical cancer chdwlg2202/24/1992HPV (without or with Pap)02/24/1992Breast cancer xejewx9202/23/2002Colonoscopy 2007Colorectal Cancer Ktzfyp4102/23/2007FIT/FOBT: Average risk2007 Fecal-DNA (Cologuard): Average risk2007Sigmoidoscopy/CT colonography 2007Respiratory Syncytial Virus (RSV) or age 60 yrs+ (1 - Risk 60-74 years 1-dose series)2022Flu vaccine (#1)5003/11/2023, 05/30/2022, 04/07/2022, Additional history existsGFR test (Diabetes, CKD 3-4, OR last GFR 15-59)/10/2023, 01/28/2024, 01/27/2024, Additional history existsCOVID-19 Vaccine ( season)510/, 09/24/2020, 1Pneumococcal 0-49 years CkksixmXplolbzxlmon71/24/2023, 04/12/2016 Pneumococcal 50+ years SphlvcxWulancqpo96/24/2023, 04/12/2016Shingles vaccine Sdpqvtzdk48/24/2023, 04/07/2022Hepatitis A vaccineAged OutNo longer eligible based on patient's age to complete this topicHepatitis B vaccineAged OutNo longer eligible based on patient's age to complete this topicHib vaccineAged Out No longer eligible based on patient's age to complete this topicMeningococcal (ACWY) vaccineAged OutNo longer eligible based on patient's age to complete this topicMeningococcal B vaccineAged OutNo longer eligible based on patient's age to complete this topicPolio vaccineAged OutNo longer eligible based on patient's age to complete this topic Medical Devices ImplantedTypeAreaManufacturerDevice IdentifierShelf Expiration DateModel / Serial / LotLens Iol Li61ao 13.00mm 14.50 D - [id number] Implanted:Qty: 1 on 12/03/2018 by Sebas Carpenter MD at [facility]: EyeBAUSCH -[id number]/23/[id number] 14.50D / [id number] / Lens Iol Li61ao 13.00mm 15.50 D - [id number] Implanted:Qty: 1 on 01/14/2019 by Sebas Carpenter MD at [facility]: EyeBAUSCH -[id number] 15.50D / [id number] / Impl Spine Alphonso Pre-Cut 3.5x25mm - [id number] Implanted:Qty: 1 on 01/25/20[facility] Spine CervicalMEDTRONIC [place] INC-[id number] / / Aplhonso Spnl L35mm Od35mm Ti Cervicothoracic Precut Prebent - [id number] Implanted:Qty: 1 on 01/25/20[facility]: Spine CervicalMEDTRONIC SOFAMOR DANEK-[id number] / / Kit Bne Grft Xsm 1.4cc Rhbmp-2 Absrb Cllgn Spng Infuse - [id number] Implanted:Qty: 1 on 01/25/2024 [facility]: Spine CervicalMEDTRONIC SPINALGRAFT TECH-[id number]/30/2025 [id number] / / [id number]:Cervical 1-2Graft Cellr Bne Matrx Influx Sparc 5cc - [id number] Implanted:Qty: 1 on 01/25/2024 [facility]: Spine CervicalISTO TECHNOLOGIES INC-WD08/14/[id number] / / [id number] Cellr Bne Matrx Influx Sparc 5cc - [id number] Implanted:Qty: 1 on 01/25/2024 [facility]: Spine CervicalISTO TECHNOLOGIES INC-WD04/05/[id number] / / [id number] 3.5x32 Pt Screw Implanted:Qty: 1 on 01/25/2024 [facility]: Spine [id number] / / Medtronic 3.5x34 Pt Screw Implanted:Qty: 1 on 01/25/2024 by [facility]: Spine [id number] / / Screw Spnl Multaxl 3.5x26 Mm Infin - [id number] Implanted:Qty: 2 on 01/25/2024 [facility]: Spine CervicalMEDTRONIC SOFAMOR DANEK-[id number] / / Set Screw Spinal M6 - [id number] Implanted:Qty: 4 on 01/25/2024 [facility]: Spine CervicalMEDTRONIC SOFAMOR DANEK-[id number] / / Procedures Procedure NamePriorityDate/TimeAssociated DiagnosisCommentsCOMPREHENSIVE METABOLIC PANEL W/ REFLEX TO MG FOR LOW KSunquest Label Print01/29/2024 11:57 AM EDT from Last 3 Months or Most Recently Relevant to Health Maintenance Results * (ABNORMAL) Comprehensive Metabolic Panel w/ Reflex to MG (01/29/2024 11:57 AM EDT)ComponentValueRef RangeTest MethodAnalysis TimePerformed AtPathologist ZpezkteabSmqqps971(L)136 - 145 mmol/L01/29/2024 11:57 AM EDTMERCY LAB[facility]ATORIES Potassium4.43.7 - 5.3 mmol/L01/29/2024 11:57 AM EDTMERCY LABORATORIESChloride 42847 - 107 mmol/L01/29/2024 11:57 AM EDTMERCY XQKFNQAKQJKGHP504(L)20 - 31 mmol/L01/29/2024 11:57 AM EDTMERCY LABORATORIESAnion Ygx045 - 16 mmol/L 01/29/2024 11:57 AM EDTMERCY ZGGYVYKDCFEWGknelkv6642 - 99 mg/dL01/29/2024 11:57 AM EDTMERCY AZSHKXJSKGSNHMI10(H)8 - 23 mg/dL01/29/2024 11:57 AM EDTMERCY LABORATORIESCreatinine1.6(H)0.50 - 0.90 mg/dL01/29/2024 11:57 AM EDTMERCY LABORATORIESEst, Glom Filt Rate38(L)>60 mL/min/1.44d55601/29/2024 11:57 AM EDT [facility]ERT[facility] ImagingComment: ? These results are not intended for use in patients <18 years of age. ? eGFR results are calculated without a race factor using the 2020 CKD-EPI equation. Careful clinical correlation is recommended, particularly when comparing to results calculated using previous equations. The CKD-EPI equation is less accurate in patients with extremes of muscle mass, extra-renal metabolism of creatine, excessive creatine ingestion, or following therapy that affects renal tubular secretion. Calcium8.0(L)8.6 - 10.4 mg/dL01/29/2024 11:57 AM EDTMERCY LABORATORIESTotal Protein5.4(L)6.6 - 8.7 g/dL01/29/2024 11:57 AM EDTMERCY LABORATORIESAlbumin3.0 (L)3.5 - 5.2 g/dL01/29/2024 11:57 AM EDTMERCY LABORATORIESAlbumin/Globulin Ratio 1.01.0 - 2.508 11:57 AM EDTMERCY LABORATORIESTotal Bilirubin0.20.00 - 1.20 mg/dL01/29/2024 11:57 AM EDTMERCY LABORATORIESAlkaline Smdyonkchhi477(H)35 - 104 U/L01/29/2024 11:57 AM EDTMERCY LABORATORIESALT<5(L)10 - 35 U/L01/29/2024 11:57 AM EDTMERCY RNAVWSHBHTMCLMV0880 - 35 U/L01/29/2024 11:57 AM EDTMERCY LABORATORIESSpecimen (Source)Anatomical Location / LateralityCollection Method / VolumeCollection TimeReceived TimeBloodBLOOD SPECIMEN / Gsonkeh3001/29/2024 11:57 AM EDT01/29/2024 11:57 AM EDT Narrative Authorizing ProviderResult TypeResult StatusHolly B Osborne DOCHEMISTRY ORDERABLESFinal ResultPerforming OrganizationAddressCity/State/ZIP CodePhone Number [facility] CENTERBlogic [place] [id number] [phone] from Last 3 Months or Most Recently Relevant to Health Maintenance Insurance * Guarantor: Mabel Mosercount TypeRelation to PatientDate of BirthPhone Billing AddressPersonal/YnxmeqJgdx1960 [facility] [address] [place] [id number] * Guarantor: Mabel Moserunt TypeRelation to PatientDate of BirthPhone Billing AddressPersonal/GybnbwSivn45 [facility] [address] [address] * Guarantor: Mabel Mosercount TypeRelation to PatientDate of BirthPhone Billing AddressMental JnrtlcCccs24 [facility] [place] [phone] Advance Directives * Full Code (Latest Code Status on File) Date ActivatedDate InactivatedComments01/22/2024 5:17 AM01/31/2024 2:43 AM * Full Code Date ActivatedDate InactivatedComments09/30/2023 1:23 AM10/01/2023 4:43 PM * Full Code Date ActivatedDate InactivatedComments01/14/2019 9:35 AM01/14/2019 1:23 PM * Full Code Date ActivatedDate InactivatedComments12/03/2018 1:14 PM12/03/2018 4:49 PM Care Teams Team MemberRelationshipSpecialtyStart DateEnd Date Yuri Godinez MD [address] [place] [address] PCP - GeneralFamily Medicine09/07/18
--- OUTSIDE RECORDS SUMMARY | 2025-05-10 16:10 | XMS_ITS | Clinical Summary ---
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 Name Role Phone Yuri Godinez MD Primary Care Provider [phone] Allergies Active AllergyReactionsCriticalityNoted DateCommentsAmoxicillin-Pot Clavulanate Diarrhea,Jrevfrga17/23/2016Povidone-IodineOther: See Szmazxxh81/23/2016 Peels skin Sulfa (Sulfonamide Antibiotics)Dechpqox44/23/2016 Medications MedicationSigDispense QuantityRefillsLast FilledStart DateEnd DateStatus pantoprazole DR (PROTONIX) 40 mg tablet Take 40 mg by mouth twice daily.02/16/2016Active tiZANidine (ZANAFLEX) 4 mg tablet Take 4 mg by mouth every 6 hours as needed.02/21/2016Active VIIBRYD 40 mg 40 mg daily with breakfast.02/22/2016Active levothyroxine (SYNTHROID) 88 mcg tablet Take 88 mcg by mouth once daily.02/26/2016Active hydrOXYzine pamoate (VISTARIL) 25 mg capsule Take 25 mg by mouth three times daily as needed.02/22/2016Active dicyclomine (BENTYL) 20 mg tablet Take 20 mg by mouth every 6 hours as needed. 02/22/2016Active ALPRAZolam (XANAX) 0.25 mg tablet Take 0.25 mg by mouth at bedtime as needed.02/24/2016Active fluticasone-salmeterol (ADVAIR DISKUS) 500-50 mcg/dose dsdv Inhale 1 Puff as instructed twice daily.Active temazepam (RESTORIL) 30 mg cap 30 mg daily at bedtime. 03/28/2016Active ondansetron orally disintegrating (ZOFRAN ODT) 4 mg disintegrating tablet Indications:Anemia, unspecified type,Renal insufficiency,Other vitamin B12 deficiency anemia,Iron deficiency anemia, unspecified iron deficiency anemia typeTake 4 mg by mouth every 8 hours as needed. 08/01/2016Active alendronate (FOSAMAX) 70 mg tablet Indications:Anemia, unspecified type,Renal insufficiency,Iron deficiency anemia, unspecified iron deficiency anemia type,Other vitamin B12 deficiency anemia,H/O gastric bypassTake 70 mg by mouth once each week. 08/12/2017Active amitriptyline (ELAVIL) 100 mg tablet Indications:Anemia, unspecified type,Renal insufficiency,Iron deficiency anemia, unspecified iron deficiency anemia type,Other vitamin B12 deficiency anemia,H/O gastric bypassTake 150 mg by mouth daily at bedtime. 08/14/2017Active butorphanol (STADOL NS) 10 mg/mL nasal spray Indications:Anemia, unspecified type,Renal insufficiency,Iron deficiency anemia, unspecified iron deficiency anemia type,Other vitamin B12 deficiency anemia,H/O gastric bypassas directed.Active calcitriol (ROCALTROL) 0.25 mcg capsule Indications:Anemia, unspecified type,Renal insufficiency,Iron deficiency anemia, unspecified iron deficiency anemia type,Other vitamin B12 deficiency anemia,H/O gastric bypassTAKE 1 CAPSULE ONCE A DAY ORALLY DAY(S)( TO SOON) Active fentaNYL (DURAGESIC) 50 mcg/hr Indications:Anemia, unspecified type,Renal insufficiency,Iron deficiency anemia, unspecified iron deficiency anemia type,Other vitamin B12 deficiency anemia,H/O gastric bypass1 Patch every 72 hours.Active metoclopramide HCl (REGLAN) 5 mg tablet Indications:Anemia, unspecified type,Renal insufficiency,Iron deficiency anemia, unspecified iron deficiency anemia type,Other vitamin B12 deficiency anemia,H/O gastric bypassTAKE 1 TABLET BY MOUTH 30 MINUTES BEFORE EACH MEAL AND AT BEDTIME Active oxyCODONE-acetaminophen (PERCOCET) 5-325 mg tablet Indications:Anemia, unspecified type,Renal insufficiency,Iron deficiency anemia, unspecified iron deficiency anemia type,Other vitamin B12 deficiency anemia,H/O gastric bypassTAKE 1 TABLET BY MOUTH EVERY 6 HOURS NEEDED FOR LUMBAR DISC [id number] KLOR-CON 10 10 mEq tablet Indications:Anemia, unspecified type,Renal insufficiency,Iron deficiency anemia, unspecified iron deficiency anemia type,Other vitamin B12 deficiency anemia,H/O gastric bypassTake 10 mEq by mouth twice daily.Active primidone (MYSOLINE) 50 mg tablet Indications:Anemia, unspecified type,Renal insufficiency,Iron deficiency anemia, unspecified iron deficiency anemia type,Other vitamin B12 deficiency anemia,H/O gastric bypassTAKE 4 TABLETS BY MOUTH EVERY DAY AT [id number] B Complex Vitamins capsule Take 1 capsule by mouth once daily. Active Cholecalciferol, Vitamin D3, 2,000 unit cap Take 1.25 Units by mouth.Active rizatriptan (MAXALT) 10 mg tablet TAKE 1 TABLET BY MOUTH AT ONSET OF MIGRAINE-OCTOBER REPEAT IN 2 HOURS- Active ferrous sulfate 325 mg (65 mg iron) tablet Take 325 mg by mouth daily with breakfast.Active metoprolol succinate ER (TOPROL XL) 25 mg 24 hr tablet Take 25 mg by mouth once daily.Active liothyronine (CYTOMEL) 5 mcg tablet 04/08/2019Active desvenlafaxine ER (PRISTIQ) 50 mg 24 hr tablet Indications:H/O gastric bypass,Other vitamin B12 deficiency anemia,Iron deficiency anemia, unspecified iron deficiency anemia type,CKD (chronic kidney disease) stage 3, GFR 30-59 ml/min (HCC)Take 50 mg by mouth.Active furosemide (LASIX) 40 mg tablet Indications:H/O gastric bypass,Other vitamin B12 deficiency anemia,Iron deficiency anemia, unspecified iron deficiency anemia type,CKD (chronic kidney disease) stage 3, GFR 30-59 ml/min (HCC)Take 40 mg by mouth once daily. 11/04/2019Active triamterene-hydrochlorothiazide (MAXZIDE) 75-50 mg per tablet Indications:H/O gastric bypass,Other vitamin B12 deficiency anemia,Iron deficiency anemia, unspecified iron deficiency anemia type,CKD (chronic kidney disease) stage 3, GFR 30-59 ml/min (HCC)Take 1 tablet by mouth once daily. 09/09/2019Active predniSONE (DELTASONE) 20 mg tablet Indications:H/O gastric bypass,Other vitamin B12 deficiency anemia,Iron deficiency anemia, unspecified iron deficiency anemia type,CKD (chronic kidney disease) stage 3, GFR 30-59 ml/min (HCC)10/28/2019Active cyanocobalamin 1,000 mcg/mL Indications:H/O gastric bypass,Other vitamin B12 deficiency anemia,Iron deficiency anemia, unspecified iron deficiency anemia type,CKD (chronic kidney disease) stage 3, GFR 30-59 ml/min (HCC)INJECT 1 ML INTRAMUSCULARLY ONCE EVERY MONTH 12 mL 1Active Active Problems ProblemNoted DateDiagnosed DateChronic obstructive pulmonary rbrqxnu1803/02/2017 Pzmepghmgjsand74/07/2017Other specified anxiety hdizsysbl49/07/2017Morbid (severe) obesity due to excess gitgkuoq02/25/2017Other zvsnzzh2001/13/2017Fluid aepqtvax57/19/2017Heart qhhnphi6612/12/2016Intractable migraine without status mqlgdvylrrp39/24/2017Displacement of lumbar intervertebral disc without ufbqargfsd40/20/4268Gppudpvqbhbt51/20/2017Spinal stenosis, lumbar region, without neurogenic ergleaqepprh59/20/2017CKD (chronic kidney disease) stage 3, GFR 30-59 ml/min07/21/20161309Vjvhmr18/23/2016Renal crqkmijrltxkz43/23/2016Abnormal weight loss03/18/2016Iron deficiency mukcjq0703/18/2016Anemia due to vitamin B12 vixpbldubz61/23/2016H/O gastric twgola5303/18/2016 Family History Medical HistoryRelationCommentsDiabetesFatherHypertensionFatherNo Ocular Disease FatherCancerMotherCataractMotherDiabetesMotherGlaucomaMotherHeartMother HypertensionMotherRelationStatusCommentsFatherMother Social History Tobacco UseTypesPacks/DayYears UsedDateSmoking Tobacco: NeverSmokeless Tobacco: NeverAlcohol UseStandard Drinks/WeekCommentsYes0 (1 standard drink = 0.6 oz pure alcohol)rarelyArea Deprivation IndexAnswerDate RecordedNational Score (1-100), lower number is lower riskNot on file06/03/2020State Score (1-10), lower number is lower riskNot on file06/03/2020Data from: https://www.neighborhoodatlas.medicine.[facility].edu/. Last address used for calculationNot on file06/03/2020CommentsNoSex and Gender Information ValueDate RecordedSex Assigned at BirthNot on fileLegal LozRtzchl78/01/2013 9:35 AM EDTGender IdentityNot on fileSexual OrientationNot on file Last Filed Vital Signs Vital SignReadingTime TakenCommentsBlood Npmehfpa101/80011/06/2019 2:32 PM EDT Zgjyk4698 2:32 PM EGQVdrtoduyaik77.6 ??C (97.8 ??F)11/06/2019 2:32 PM EDTRespiratory Zwqs706011/06/2019 2:32 PM EDTOxygen Edratntdbl86%11/06/2019 2:32 PM EDTInhaled Oxygen Concentration--Pdgrcw15.4 kg (201 lb 9.6 oz)11/06/2019 2:32 PM MTOUzxyov969.8 cm (5' 2.52 )11/06/2019 2:32 PM EDTBody Mass Index36.26 11/06/2019 2:32 PM EDT Plan of Treatment Health MaintenanceDue DateLast DoneCommentsAnxiety Dffjtpncf11/31/1980Depression Aqfnwamht64/31/1980HIV Qbgfwqbrb60/31/1980Hepatitis C Wluvhkdil06/31/1980 DTaP,Tdap,Td Vaccine (1 - Tdap)1981Cervical Cancer Ftcwuhguj19/31/1983 Mammogram Pqlopcotp38/31/2002CT Gbphivamyqnd82/31/2007Cologuard (FIT-DNA) 02/23/20077183Lrwvvcepsbh99/31/2007Colorectal Cancer Ptrhlwuhg16/31/2007Fecal Occult Blood2007Lipid Jjijempls75/31/5376Tbvvfbwgyungp25/31/2007Shingrix Vaccine (1 of 2)02/24/2012Pneumococcal Vaccine: 50+ (2 of 2 - PCV) Diabetes Blzcfmxqm31, 08/26/2019, 07/22/2019, Additional history existsCovid-19 Vaccine (1 - 2024- season)2025Influenza Vaccine (#1)/02/2018, 05/04/2017RSV Vaccine (1 - 1-dose 75+ series) 2037 Procedures Procedure NamePriorityDate/TimeAssociated DiagnosisCommentsCOMPREHENSIVE METABOLIC KRHTOGzkoeyl01/13/2020 2:29 PM EDT Anemia, unspecified type Renal insufficiency H/O gastric bypass from Last 3 Months or Most Recently Relevant to Health Maintenance Results * (ABNORMAL) COMP METABOLIC PANEL (11/06/2019 2:29 PM EDT)ComponentValueRef RangeTest MethodAnalysis TimePerformed AtPathologist SignatureProtein, Total 6.0(L)6.3 - 8.0 g/dL11/06/2019 2:52 PM EDTCCommunity [facility] Cancer CareAlbumin4.03.9 - 4.9 g/dL11/06/2019 2:52 PM [facility] Cancer CareCalcium8.1(L)8.5 - 10.2 mg/dL11/06/2019 2:52 PM [facility] CareBilirubin, Total0.20.2 - 1.3 mg/dL11/06/2019 2:52 PM [facility] Cancer CareAlkaline Hllgdvrjqcx948(H)34 - 123 U/L11/06/2019 2:52 PM [facility] Cancer GdhrCZJ5774 - 35 U/L11/06/2019 2:52 PM [facility] Cancer EiauKrhviza0944 - 99 mg/dL11/06/2019 2:52 PM [facility] Cancer CareComment: The [place] Diabetes Association (ADA) provides guidance for cutoff [...] Standards of Medical Care in Diabetes 2016, [place] [employer] Association. Diabetes Care. 2016.39(Suppl 1). GWT997 - 21 mg/dL11/06/2019 2:52 PM EDTCCommunity [facility] Creatinine0.960.58 - 0.96 mg/dL11/06/2019 2:52 PM EDTCCommunity [facility] RzlxEyxpxj802(L)136 - 144 mmol/L11/06/2019 2:52 PM EDJ.[facility]. [facility] Cancer CarePotassium4.23.7 - 5.1 mmol/L11/06/2019 2:52 PM EDT [facility] KoqjDkicueuy67(L)97 - 105 mmol/L11/06/2019 2:52 PM EDTCCommunity [facility] FvcnPQ92168 - 30 mmol/L11/06/2019 2:52 PM EDJ.[facility]. [facility] Cancer CareAnion Gap8(L)9 - 18 mmol/L 11/06/2019 2:52 PM EDJ[facility] ZjquLIN919 - 38 U/L 11/06/2019 2:52 PM [facility] Cancer CareeGFR->60011/06/2019 2:52 PM EDTCCommunity [facility] Cancer CareeGFR- All Other Races60.11/06/2019 2:52 PM [facility] Care Comment: eGFR (Estimated GFR) Units of measure: [...] eGFR may not accurately reflect actual GFR. Specimen (Source)Anatomical Location / LateralityCollection Method / Volume Collection TimeReceived TimeBlood specimen (specimen)BLOOD SPECIMEN / Unknown 11/06/2019 2:29 PM EDT11/06/2019 2:31 PM EDT Narrative Authorizing ProviderResult TypeResult StatusCharles Tesfaye MDLABORATORYFinal ResultPerforming OrganizationAddressCity/State/ZIP CodePhone Number [address] [place] [address] [facility] [address] [place], [place] from Last 3 Months or Most Recently Relevant to Health Maintenance Insurance Care Teams Team MemberRelationshipSpecialtyStart Date Yuri Godinez MD PCP - GeneralFamily Medicine09/24/12
--- OUTSIDE RECORDS SUMMARY | 2025-05-10 16:11 | XMS_ITS | Patient Health Record ---
Author Organization [facility] in [place] Address [address] [place] [address] Care Team Providers Care Parts Room Clerk Name Role Phone Vinay Godinez Primary Care Provider [phone] Ny Rae Unavailable [phone] Allergies Allergen (clinical drug ingredient) Drug/Non Drug Allergy documented on EMR Reaction Allergy Type Onset Date Status amoxicillin / clavulanate Augmentin vomiting Drug Aller gy Activepovidone-iodineBetadineblistersDrug AllergyActiveSubstance with sulfonamide structure and antibacterial mechanism of action (substance)Sulfa AntibioticsvomitingDrug AllergyActive Results Component Value Reference Range Notes Osmolality Reviewed date:07/04/2024 12:33:49 PM Interpretation: Performing Lab: Notes/Report: [facility] , Osmolality 285 280-301 mOsmol/kg Performed at: - [address] [id number] Submarine Advisory Team Watch Officer: Nicolas Arenas MD, Phone: [phone] Performing Lab: see note - [facility] LBCBC AUTO DIFF Reviewed date:05/14/2024 08:03:43 PM Interpretation: Performing Lab: Notes/Report: [facility] ,White Blood Count6.54.0-11.0 10 3/uLRed Blood Count3.334.20-5.40 10 6/uL Hemoglobin9.612.0-16.0 g/gSZnaejbcvrm23.936.0-48.0 %Mean Corpuscular Ixcvhn36.8 81.0-99.0 fLMean Corpuscular Frndggoacv35.826.7-34.0 pgMean Corpuscular HGB Conc 31.129.9-35.2 g/dLRed Cell Distribution Width15.611.0-15.0 %Platelet Lafbj193 150-450 10 3/uLMean Platelet Volume9.19.5-13.5 fLNeutrophils Percent Auto73.8 43.0-75.0 %Lymphocytes Percent Auto13.120.5-60.0 %Monocytes Percent Auto8.81.7- 12.0 %Eosinophils Percent Auto3.70.9-7.0 %Basophils Percent Auto0.30.2-2.0 % Immature Granulocytes Pct Auto0.30.0-0.5 %Neutrophils Absolute Auto4.81.4-6.5 10 3/uLLymphocytes Absolute Auto0.91.2-3.8 10 3/uLMonocytes Absolute Auto0.60.3-0.8 10 3/uLEosinophils Absolute Auto0.20.0-0.7 10 3/uLBasophils Absolute Auto0.00.0- 0.1 10 3/uLImmature Granulocytes Abs Auto0.020.00-0.03 10 3/uLPerforming Lab:see noteML - [facility] LBCBC AUTO DIFF Reviewed date:05/22/2024 05:24:02 PM Interpretation: Performing Lab: Notes/Report: [facility] ,White Blood Count5.54.0-11.0 10 3/uLRed Blood Count3.334.20-5.40 10 6/uL Hemoglobin9.512.0-16.0 g/xPHsvhexydwl33.436.0-48.0 %Mean Corpuscular Ushxpw90.3 81.0-99.0 fLMean Corpuscular Gquimzuiov20.526.7-34.0 pgMean Corpuscular HGB Conc 30.329.9-35.2 g/dLRed Cell Distribution Width16.411.0-15.0 %Platelet Wifud595 150-450 10 3/uLMean Platelet Volume8.89.5-13.5 fLNeutrophils Percent Auto68.2 43.0-75.0 %Lymphocytes Percent Auto16.220.5-60.0 %Monocytes Percent Auto9.71.7- 12.0 %Eosinophils Percent Auto5.10.9-7.0 %Basophils Percent Auto0.40.2-2.0 % Immature Granulocytes Pct Auto0.40.0-0.5 %Neutrophils Absolute Auto3.81.4-6.5 10 3/uLLymphocytes Absolute Auto0.91.2-3.8 10 3/uLMonocytes Absolute Auto0.50.3-0.8 10 3/uLEosinophils Absolute Auto0.30.0-0.7 10 3/uLBasophils Absolute Auto0.00.0- 0.1 10 3/uLImmature Granulocytes Abs Auto0.020.00-0.03 10 3/uLPerforming Lab:see noteML - [facility] LBPROF 14(COMP METB) Reviewed date:05/22/2024 05:24:02 PM Interpretation: Performing Lab: Notes/Report: [facility] ,Tilayg162850-823 mmol/LPotassium4.53.5-5.1 mmol/VAivchcnl42762-288 mmol/LCarbon Wfqxlxw71.821.0-32.0 mmol/LAnion Gap14.5Xinqipx0967-795 mg/dLBlood Urea Nitrogen 48.07.0-18.0 mg/dLCreatinine1.720.55-1.02 mg/dLEstimated GFR ( Wjthkkp53 >=60 mL/min/1.73m 2Estimated GFR (Non- Ame30>=60 mL/min/1.73m 2BUN Creatinine Ratio27.7Cwcvwlx6.18.5-10.1 mg/dLBilirubin Total0.20.2-1.0 mg/dL Aspartate Amino Rxxnighelvj3391-48 U/LAlanine Uubhcvgonobjhpqm0278-38 U/L Alkaline Kfgdwkpqjtd18695-890 U/LTotal Protein6.66.4-8.2 g/dLAlbumin Level3.2 3.4-5.0 g/dLGlobulin3.4Albumin Globulin Ratio0.9Performing Lab:see noteML - [facility] LBCBC AUTO DIFF Reviewed date:05/28/2024 08:26:27 PM Interpretation: Performing Lab: Notes/Report: [facility] ,White Blood Count6.84.0-11.0 10 3/uLRed Blood Count3.384.20-5.40 10 6/uL Hemoglobin9.712.0-16.0 g/hEWxxivcxdhl40.636.0-48.0 %Mean Corpuscular Idkgzm18.5 81.0-99.0 fLMean Corpuscular Feoyvzzlqz95.726.7-34.0 pgMean Corpuscular HGB Conc 30.729.9-35.2 g/dLRed Cell Distribution Width16.511.0-15.0 %Platelet Jgode927 150-450 10 3/uLMean Platelet Volume9.49.5-13.5 fLNeutrophils Percent Auto77.1 43.0-75.0 %Lymphocytes Percent Auto9.620.5-60.0 %Monocytes Percent Auto9.11.7- 12.0 %Eosinophils Percent Auto3.50.9-7.0 %Basophils Percent Auto0.30.2-2.0 % Immature Granulocytes Pct Auto0.40.0-0.5 %Neutrophils Absolute Auto5.31.4-6.5 10 3/uLLymphocytes Absolute Auto0.71.2-3.8 10 3/uLMonocytes Absolute Auto0.60.3-0.8 10 3/uLEosinophils Absolute Auto0.20.0-0.7 10 3/uLBasophils Absolute Auto0.00.0- 0.1 10 3/uLImmature Granulocytes Abs Auto0.030.00-0.03 10 3/uLPerforming Lab:see noteML - [facility] LBOsmolality Reviewed date:05/30/2024 12:43:32 PM Interpretation: Performing Lab: Notes/Report: [facility] ,Qkipliygiq340625-442 mOsmol/kg Performed at: [address] [id number] [employer] Advisory Team Watch Officer: Nicolas Arenas MD, Phone: [phone] Performing Lab:see note - [facility] LBPROF 14(COMP METB) Reviewed date:06/12/2024 03:53:07 PM Interpretation: Performing Lab: Notes/Report: [facility] ,Lusvsq425797-175 mmol/LPotassium4.53.5-5.1 mmol/ZAdsvgpta78523-976 mmol/LCarbon Biodovn00.321.0-32.0 mmol/LAnion Gap14.2Kppifov3574-356 mg/dLBlood Urea Nitrogen 71.07.0-18.0 mg/dLCreatinine2.020.55-1.02 mg/dLEstimated GFR ( Sqijnvl27 >=60 mL/min/1.73m 2Estimated GFR (Non- Ame25>=60 mL/min/1.73m 2BUN Creatinine Ratio35.1Pqlzvng7.68.5-10.1 mg/dLBilirubin Total0.20.2-1.0 mg/dL Aspartate Amino Ijssszzcdad8223-29 U/LAlanine Vfcqupbkesbpoutg4256-49 U/L Alkaline Mkdprfqvtcx63388-896 U/LTotal Protein7.36.4-8.2 g/dLAlbumin Level3.4 3.4-5.0 g/dLGlobulin3.9Albumin Globulin Ratio0.9Performing Lab:see noteML - [facility] LBPROF 14(COMP METB) Reviewed date:07/02/2024 03:26:48 PM Interpretation: Performing Lab: Notes/Report: [facility] ,Zcnkqb038189-284 mmol/LPotassium3.23.5-5.1 mmol/XEvblupvf49323-653 mmol/LCarbon Yesksae79.821.0-32.0 mmol/LAnion Gap13.7Anfgqgl4003-742 mg/dLBlood Urea Nitrogen 47.07.0-18.0 mg/dLCreatinine1.680.55-1.02 mg/dLEstimated GFR ( Rszalqx43 >=60 mL/min/1.73m 2Estimated GFR (Non- Ame31>=60 mL/min/1.73m 2BUN Creatinine Ratio28.9Iamqzmw6.98.5-10.1 mg/dLBilirubin Total0.30.2-1.0 mg/dL Aspartate Amino Kddlhhcycjx3617-62 U/LAlanine Mivnwkjhdssotapi4593-55 U/L Alkaline Igqnbpdsqfj58047-118 U/LTotal Protein6.06.4-8.2 g/dLAlbumin Level2.8 3.4-5.0 g/dLGlobulin3.2Albumin Globulin Ratio0.9Performing Lab:see noteML - [facility] LBCBC AUTO DIFF Reviewed date:07/09/2024 03:58:21 PM Interpretation: Performing Lab: Notes/Report: [facility] ,White Blood Count9.94.0-11.0 10 3/uLRed Blood Count3.974.20-5.40 10 6/uL Yhuqympnzq56.512.0-16.0 g/nGMyunltnbwa85.536.0-48.0 %Mean Corpuscular Dadcmv40.5 81.0-99.0 fLMean Corpuscular Uxerknpzkj42.026.7-34.0 pgMean Corpuscular HGB Conc 30.729.9-35.2 g/dLRed Cell Distribution Width16.511.0-15.0 %Platelet Bmgcp695 150-450 10 3/uLMean Platelet Volume8.99.5-13.5 fLNeutrophils Percent Auto70.6 43.0-75.0 %Lymphocytes Percent Auto17.720.5-60.0 %Monocytes Percent Auto7.81.7- 12.0 %Eosinophils Percent Auto1.90.9-7.0 %Basophils Percent Auto0.60.2-2.0 % Immature Granulocytes Pct Auto1.40.0-0.5 %Neutrophils Absolute Auto7.01.4-6.5 10 3/uLLymphocytes Absolute Auto1.81.2-3.8 10 3/uLMonocytes Absolute Auto0.80.3-0.8 10 3/uLEosinophils Absolute Auto0.20.0-0.7 10 3/uLBasophils Absolute Auto0.10.0- 0.1 10 3/uLImmature Granulocytes Abs Auto0.140.00-0.03 10 3/uLPerforming Lab:see noteML - [facility] LBPROF 14(COMP METB) Reviewed date:07/09/2024 03:58:21 PM Interpretation: Performing Lab: Notes/Report: [facility] ,Zsekwq449490-721 mmol/LPotassium4.83.5-5.1 mmol/RKcjvixie21551-136 mmol/LCarbon Kwbqphd88.021.0-32.0 mmol/LAnion Gap14.1Cecybfq2286-800 mg/dLBlood Urea Nitrogen 48.07.0-18.0 mg/dLCreatinine2.260.55-1.02 mg/dLEstimated GFR ( Qwmsejl63 >=60 mL/min/1.73m 2Estimated GFR (Non- Ame22>=60 mL/min/1.73m 2BUN Creatinine Ratio21.7Tldkeyd5.48.5-10.1 mg/dLBilirubin Total0.20.2-1.0 mg/dL Aspartate Amino Ryruawgkrzd9563-71 U/LAlanine Sbamshiewmqzfjib4264-13 U/L Alkaline Rzxrhexhwnk67541-112 U/LTotal Protein7.26.4-8.2 g/dLAlbumin Level3.5 3.4-5.0 g/dLGlobulin3.7Albumin Globulin Ratio0.9Performing Lab:see note - [facility] LBOsmolality Reviewed date:07/12/2024 10:41:16 AM Interpretation: Performing Lab: Notes/Report: [facility] ,Absfarmgqe380372-126 mOsmol/kg Performed at: - [facility] [id number] [employer] Advisory Team Watch Officer: Nicolas Arenas MD, Phone: [phone] Performing Lab:see note - [facility] LBPROF 14(COMP METB) Reviewed date:07/18/2024 05:32:07 PM Interpretation: Performing Lab: Notes/Report: [facility] ,Yrwrli100598-697 mmol/LPotassium4.43.5-5.1 mmol/YHmkqluaq85203-756 mmol/LCarbon Xcsbjyx37.321.0-32.0 mmol/LAnion Gap15.7Gsdjckf8479-329 mg/dLBlood Urea Nitrogen 51.07.0-18.0 mg/dLCreatinine1.770.55-1.02 mg/dLEstimated GFR ( Mhdmomi53 >=60 mL/min/1.73m 2Estimated GFR (Non- Ame29>=60 mL/min/1.73m 2BUN Creatinine Ratio28.1Jnurmuz3.48.5-10.1 mg/dLBilirubin Total0.10.2-1.0 mg/dL Aspartate Amino Tgdoiwkmcxp7679-69 U/LAlanine Lzvzkjmnbdrtewvf7957-89 U/L Alkaline Ptttxpwqwji54740-179 U/LTotal Protein6.86.4-8.2 g/dLAlbumin Level3.1 3.4-5.0 g/dLGlobulin3.7Albumin Globulin Ratio0.8Performing Lab:see noteML - [facility] 14(COMP METB) Reviewed date:08/04/2024 11:09:08 AM Interpretation: Performing Lab: Notes/Report: [facility] ,Uxvurq599638-017 mmol/LPotassium4.43.5-5.1 mmol/HVvokbkyh20314-649 mmol/LCarbon Vmtzmkx22.621.0-32.0 mmol/LAnion Gap14.5Xwrzjkz0901-992 mg/dLBlood Urea Nitrogen 68.07.0-18.0 mg/dLCreatinine2.370.55-1.02 mg/dLEstimated GFR ( Lqbmffm59 >=60 mL/min/1.73m 2Estimated GFR (Non- Ame21>=60 mL/min/1.73m 2BUN Creatinine Ratio28.2Rcahzxu6.28.5-10.1 mg/dLBilirubin Total0.10.2-1.0 mg/dL Aspartate Amino Kfkzkufmgqq4208-12 U/LAlanine Ybiugwoxsdcpwjvo2271-56 U/L Alkaline Ecvdtjzejwg81505-875 U/LTotal Protein6.96.4-8.2 g/dLAlbumin Level3.2 3.4-5.0 g/dLGlobulin3.7Albumin Globulin Ratio0.9Performing Lab:see noteML - [facility] 14(COMP METB) Reviewed date:08/25/2024 12:31:05 PM Interpretation: Performing Lab: Notes/Report: [facility] ,Tygyjv622944-201 mmol/LPotassium4.23.5-5.1 mmol/HVdgqpnpk8006-937 mmol/LCarbon Exucgkk92.921.0-32.0 mmol/LAnion Gap10.1Haikjhd0942-731 mg/dLBlood Urea Nitrogen 59.07.0-18.0 mg/dLCreatinine2.140.55-1.02 mg/dLEstimated GFR ( Wriqvha46 >=60 mL/min/1.73m 2Estimated GFR (Non- Ame23>=60 mL/min/1.73m 2BUN Creatinine Ratio27.2Tovcwdf5.08.5-10.1 mg/dLBilirubin Total0.10.2-1.0 mg/dL Aspartate Amino Gowjqfsqbnp3454-69 U/LAlanine Euszkmcikeeukiyc7058-89 U/L Alkaline Xoqwcrutwfg46306-814 U/LTotal Protein6.96.4-8.2 g/dLAlbumin Level3.2 3.4-5.0 g/dLGlobulin3.7Albumin Globulin Ratio0.9Performing Lab:see noteML - [facility] LBCBC AUTO DIFF Reviewed date:09/01/2024 09:49:36 AM Interpretation: Performing Lab: Notes/Report: [facility] ,White Blood Count6.74.0-11.0 10 3/uLRed Blood Count3.474.20-5.40 10 6/uL Zgyocmvqqu53.812.0-16.0 g/qRUpoyxylezk82.236.0-48.0 %Mean Corpuscular Jtnqct19.6 81.0-99.0 fLMean Corpuscular Jjzsxrhwgk54.126.7-34.0 pgMean Corpuscular HGB Conc 31.629.9-35.2 g/dLRed Cell Distribution Width14.311.0-15.0 %Platelet Ztfhl551 150-450 10 3/uLMean Platelet Volume8.79.5-13.5 fLNeutrophils Percent Auto63.2 43.0-75.0 %Lymphocytes Percent Auto23.720.5-60.0 %Monocytes Percent Auto8.51.7- 12.0 %Eosinophils Percent Auto3.60.9-7.0 %Basophils Percent Auto0.40.2-2.0 % Immature Granulocytes Pct Auto0.60.0-0.5 %Neutrophils Absolute Auto4.31.4-6.5 10 3/uLLymphocytes Absolute Auto1.61.2-3.8 10 3/uLMonocytes Absolute Auto0.60.3-0.8 10 3/uLEosinophils Absolute Auto0.20.0-0.7 10 3/uLBasophils Absolute Auto0.00.0- 0.1 10 3/uLImmature Granulocytes Abs Auto0.040.00-0.03 10 3/uLPerforming Lab:see noteML - [facility] LBPROF 14(COMP METB) Reviewed date:09/01/2024 09:49:36 AM Interpretation: Performing Lab: Notes/Report: [facility] ,Crajtb852173-250 mmol/LPotassium3.83.5-5.1 mmol/PNhenkcyx97933-034 mmol/LCarbon Dwuvgjo84.121.0-32.0 mmol/LAnion Gap13.2Pbhqpml6943-441 mg/dLBlood Urea Nitrogen 48.07.0-18.0 mg/dLCreatinine1.870.55-1.02 mg/dLEstimated GFR ( Fuaflfh39 >=60 mL/min/1.73m 2Estimated GFR (Non- Ame27>=60 mL/min/1.73m 2BUN Creatinine Ratio25.8Pcpasnd3.18.5-10.1 mg/dLBilirubin Total0.20.2-1.0 mg/dL Aspartate Amino Xiltpxvntds0882-14 U/LAlanine Houkcqgmvpoheooy8679-41 U/L Alkaline Bshgggeodks10062-518 U/LTotal Protein7.26.4-8.2 g/dLAlbumin Level3.4 3.4-5.0 g/dLGlobulin3.8Albumin Globulin Ratio0.9Performing Lab:see noteML - [facility] LBCBC AUTO DIFF Reviewed date:09/11/2024 05:38:12 PM Interpretation: Performing Lab: Notes/Report: [facility] ,White Blood Count4.84.0-11.0 10 3/uLRed Blood Count3.254.20-5.40 10 6/uL Hemoglobin9.912.0-16.0 g/lKVhgmrxoowy93.036.0-48.0 %Mean Corpuscular Ljburf23.5 81.0-99.0 fLMean Corpuscular Brcqcjpxsb33.526.7-34.0 pgMean Corpuscular HGB Conc 30.929.9-35.2 g/dLRed Cell Distribution Width14.011.0-15.0 %Platelet Ljsmu468 150-450 10 3/uLMean Platelet Volume9.09.5-13.5 fLNeutrophils Percent Auto63.2 43.0-75.0 %Lymphocytes Percent Auto21.320.5-60.0 %Monocytes Percent Auto11.61.7- 12.0 %Eosinophils Percent Auto2.90.9-7.0 %Basophils Percent Auto0.60.2-2.0 % Immature Granulocytes Pct Auto0.40.0-0.5 %Neutrophils Absolute Auto3.01.4-6.5 10 3/uLLymphocytes Absolute Auto1.01.2-3.8 10 3/uLMonocytes Absolute Auto0.60.3-0.8 10 3/uLEosinophils Absolute Auto0.10.0-0.7 10 3/uLBasophils Absolute Auto0.00.0- 0.1 10 3/uLImmature Granulocytes Abs Auto0.020.00-0.03 10 3/uLPerforming Lab:see noteML - [facility] LBOsmolality Reviewed date:09/16/2024 08:39:55 PM Interpretation: Performing Lab: Notes/Report: [facility] ,[id number] mOsmol/kg Performed at: [address] [id number] [employer] Advisory Team Watch Officer: Nicolas Arenas MD, Phone: [phone] Performing Lab:see note - [facility] LBCBC AUTO DIFF Reviewed date:09/17/2024 12:10:47 PM Interpretation: Performing Lab: Notes/Report: [facility] ,White Blood Count4.54.0-11.0 10 3/uLRed Blood Count3.154.20-5.40 10 6/uL Hemoglobin9.612.0-16.0 g/zFCqtnmvmlib06.336.0-48.0 %Mean Corpuscular Emdzze95.4 81.0-99.0 fLMean Corpuscular Ysicagvbow51.526.7-34.0 pgMean Corpuscular HGB Conc 30.729.9-35.2 g/dLRed Cell Distribution Width14.011.0-15.0 %Platelet Qnxcr643 150-450 10 3/uLMean Platelet Volume8.99.5-13.5 fLNeutrophils Percent Auto70.0 43.0-75.0 %Lymphocytes Percent Auto18.920.5-60.0 %Monocytes Percent Auto9.01.7- 12.0 %Eosinophils Percent Auto1.50.9-7.0 %Basophils Percent Auto0.40.2-2.0 % Immature Granulocytes Pct Auto0.20.0-0.5 %Neutrophils Absolute Auto3.21.4-6.5 10 3/uLLymphocytes Absolute Auto0.91.2-3.8 10 3/uLMonocytes Absolute Auto0.40.3-0.8 10 3/uLEosinophils Absolute Auto0.10.0-0.7 10 3/uLBasophils Absolute Auto0.00.0- 0.1 10 3/uLImmature Granulocytes Abs Auto0.010.00-0.03 10 3/uLPerforming Lab:see noteML - [facility] LBCBC AUTO DIFF Reviewed date:09/18/2024 10:55:14 AM Interpretation: Performing Lab: Notes/Report: [facility] ,White Blood Count3.34.0-11.0 10 3/uLRed Blood Count3.024.20-5.40 10 6/uL Hemoglobin9.212.0-16.0 g/oONkvbjhohct35.336.0-48.0 %Mean Corpuscular Wdxsef082.3 81.0-99.0 fLMean Corpuscular Mexofuktlv22.526.7-34.0 pgMean Corpuscular HGB Conc 30.429.9-35.2 g/dLRed Cell Distribution Width13.811.0-15.0 %Platelet Ylffl552 150-450 10 3/uLMean Platelet Volume8.99.5-13.5 fLNeutrophils Percent Auto54.0 43.0-75.0 %Lymphocytes Percent Auto31.920.5-60.0 %Monocytes Percent Auto9.61.7- 12.0 %Eosinophils Percent Auto3.30.9-7.0 %Basophils Percent Auto0.60.2-2.0 % Immature Granulocytes Pct Auto0.60.0-0.5 %Neutrophils Absolute Auto1.81.4-6.5 10 3/uLLymphocytes Absolute Auto1.11.2-3.8 10 3/uLMonocytes Absolute Auto0.30.3-0.8 10 3/uLEosinophils Absolute Auto0.10.0-0.7 10 3/uLBasophils Absolute Auto0.00.0- 0.1 10 3/uLImmature Granulocytes Abs Auto0.020.00-0.03 10 3/uLPerforming Lab:see noteML - [facility] LBPROF CHEM 8 (BAS METB) Reviewed date:09/18/2024 10:55:14 AM Interpretation: Performing Lab: Notes/Report: [facility] ,Kmqksd780462-334 mmol/LPotassium3.63.5-5.1 mmol/FJpdiemrr09879-525 mmol/LCarbon Rigjucf35.121.0-32.0 mmol/LAnion Gap8.6Fkipwbw16713-280 mg/dLBlood Urea Nitrogen 47.07.0-18.0 mg/dLCreatinine1.990.55-1.02 mg/dLEstimated GFR ( Tcslgba48 >=60 mL/min/1.73m 2Estimated GFR (Non- Ame25>=60 mL/min/1.73m 2BUN Creatinine Ratio23.5Ojccxkf4.18.5-10.1 mg/dLPerforming Lab:see noteML - [facility] LBCBC AUTO DIFF Reviewed date:09/29/2024 03:19:39 PM Interpretation: Performing Lab: Notes/Report: [facility] ,White Blood Count6.74.0-11.0 10 3/uLRed Blood Count3.094.20-5.40 10 6/uL Hemoglobin9.412.0-16.0 g/lSZmrezqyiga62.836.0-48.0 %Mean Corpuscular Serhnp54.4 81.0-99.0 fLMean Corpuscular Ealogstsaf97.426.7-34.0 pgMean Corpuscular HGB Conc 31.529.9-35.2 g/dLRed Cell Distribution Width13.111.0-15.0 %Platelet Tjgxz872 150-450 10 3/uLMean Platelet Volume8.69.5-13.5 fLNeutrophils Percent Auto73.0 43.0-75.0 %Lymphocytes Percent Auto14.320.5-60.0 %Monocytes Percent Auto9.31.7- 12.0 %Eosinophils Percent Auto2.30.9-7.0 %Basophils Percent Auto0.50.2-2.0 % Immature Granulocytes Pct Auto0.60.0-0.5 %Neutrophils Absolute Auto4.91.4-6.5 10 3/uLLymphocytes Absolute Auto1.01.2-3.8 10 3/uLMonocytes Absolute Auto0.60.3-0.8 10 3/uLEosinophils Absolute Auto0.20.0-0.7 10 3/uLBasophils Absolute Auto0.00.0- 0.1 10 3/uLImmature Granulocytes Abs Auto0.040.00-0.03 10 3/uLPerforming Lab:see noteML - [facility] LBPROF 14(COMP METB) Reviewed date:09/29/2024 03:19:39 PM Interpretation: Performing Lab: Notes/Report: [facility] ,Akzpjr138063-240 mmol/LPotassium4.33.5-5.1 mmol/SDxcrlcoj0096-476 mmol/LCarbon Gwpkxdj13.921.0-32.0 mmol/LAnion Gap12.1Wtzzavw1379-214 mg/dLBlood Urea Nitrogen 58.07.0-18.0 mg/dLCreatinine2.120.55-1.02 mg/dLEstimated GFR ( Cqlhliq43 >=60 mL/min/1.73m 2Estimated GFR (Non- Ame24>=60 mL/min/1.73m 2BUN Creatinine Ratio27.8Inqdcnr9.28.5-10.1 mg/dLBilirubin Total0.20.2-1.0 mg/dL Aspartate Amino Mznhqwdlafk3578-80 U/LAlanine Whxysgvixnttrmcp1045-64 U/L Alkaline Qaixbopppyu79918-886 U/LTotal Protein6.76.4-8.2 g/dLAlbumin Level3.0 3.4-5.0 g/dLGlobulin3.7Albumin Globulin Ratio0.8Performing Lab:see note - [facility] LBOsmolality Reviewed date:09/30/2024 07:08:29 PM Interpretation: Performing Lab: Notes/Report: [facility] ,[id number] mOsmol/kg Performed at: [address] [id number] [employer] Advisory Team Watch Officer: Nicolas Arenas MD, Phone: [phone] Performing Lab:see [facility] LBOsmolality Reviewed date:10/08/2024 01:04:41 PM Interpretation: Performing Lab: Notes/Report: [facility] ,[id number] mOsmol/kg Performed at: [address] [id number] [employer] Team Watch Officer: Nicolas Arenas MD, Phone: [phone] Performing Lab:see [facility] LBBNP Reviewed date:10/15/2024 08:28:30 PM Interpretation: Performing Lab: Notes/Report: [facility] ,NT Pro B Type Natriuretic Fgbt988.0<=900.0 pg/mLPerforming Lab:[facility] LBPROF 14(COMP METB) Reviewed date:10/15/2024 02:22:26 PM Interpretation: Performing Lab: Notes/Report: [facility] ,Xjzpcc882916-570 mmol/LPotassium4.33.5-5.1 mmol/VFhsdvqgr1947-574 mmol/LCarbon Rjnnrnz22.121.0-32.0 mmol/LAnion Gap13.3Xkrsael10684-915 mg/dLBlood Urea Wsypnewv92.07.0-18.0 mg/dLCreatinine2.110.55-1.02 mg/dLEstimated GFR ( Nqlvkwv25>=60 mL/min/1.73m 2Estimated GFR (Non- Ame24>=60 mL/min/1.73m 2 BUN Creatinine Ratio31.9Xemrwdg8.38.5-10.1 mg/dLBilirubin Total0.20.2-1.0 mg/dL Aspartate Amino Zztjbvjstub1401-90 U/LAlanine Duztgvywiptinfhv9677-57 U/L Alkaline Cuwiadpgdwl86220-790 U/LTotal Protein6.96.4-8.2 g/dLAlbumin Level3.3 3.4-5.0 g/dLGlobulin3.6Albumin Globulin Ratio0.9Performing Lab:see noteML - [facility] LBCBC AUTO DIFF Reviewed date:10/16/2024 10:15:17 AM Interpretation: Performing Lab: Notes/Report: [facility] ,White Blood Count4.54.0-11.0 10 3/uLRed Blood Count2.954.20-5.40 10 6/uL Hemoglobin8.912.0-16.0 g/nQJnkatsmssy05.336.0-48.0 %Mean Corpuscular Sxeuuu88.3 81.0-99.0 fLMean Corpuscular Vrsezbdxcs78.226.7-34.0 pgMean Corpuscular HGB Conc 30.429.9-35.2 g/dLRed Cell Distribution Width13.411.0-15.0 %Platelet Fqkhe969 150-450 10 3/uLMean Platelet Volume8.89.5-13.5 fLNeutrophils Percent Auto59.9 43.0-75.0 %Lymphocytes Percent Auto26.620.5-60.0 %Monocytes Percent Auto10.01.7- 12.0 %Eosinophils Percent Auto2.90.9-7.0 %Basophils Percent Auto0.40.2-2.0 % Immature Granulocytes Pct Auto0.20.0-0.5 %Neutrophils Absolute Auto2.71.4-6.5 10 3/uLLymphocytes Absolute Auto1.21.2-3.8 10 3/uLMonocytes Absolute Auto0.50.3-0.8 10 3/uLEosinophils Absolute Auto0.10.0-0.7 10 3/uLBasophils Absolute Auto0.00.0- 0.1 10 3/uLImmature Granulocytes Abs Auto0.010.00-0.03 10 3/uLPerforming Lab:see noteML - [facility] LBCBC AUTO DIFF Reviewed date:10/18/2024 08:57:23 AM Interpretation: Performing Lab: Notes/Report: [facility] ,White Blood Count5.94.0-11.0 10 3/uLRed Blood Count2.854.20-5.40 10 6/uL Hemoglobin8.712.0-16.0 g/eGPkwznlslcd85.936.0-48.0 %Mean Corpuscular Zwebgw655.4 81.0-99.0 fLMean Corpuscular Ipjivdkpkv85.526.7-34.0 pgMean Corpuscular HGB Conc 30.129.9-35.2 g/dLRed Cell Distribution Width13.711.0-15.0 %Platelet Rsxiq769 150-450 10 3/uLMean Platelet Volume9.29.5-13.5 fLNeutrophils Percent Auto61.5 43.0-75.0 %Lymphocytes Percent Auto24.620.5-60.0 %Monocytes Percent Auto10.31.7- 12.0 %Eosinophils Percent Auto2.70.9-7.0 %Basophils Percent Auto0.20.2-2.0 % Immature Granulocytes Pct Auto0.70.0-0.5 %Neutrophils Absolute Auto3.71.4-6.5 10 3/uLLymphocytes Absolute Auto1.51.2-3.8 10 3/uLMonocytes Absolute Auto0.60.3-0.8 10 3/uLEosinophils Absolute Auto0.20.0-0.7 10 3/uLBasophils Absolute Auto0.00.0- 0.1 10 3/uLImmature Granulocytes Abs Auto0.040.00-0.03 10 3/uLPerforming Lab:see noteML - [facility] LBPROF CHEM 8 (BAS METB) Reviewed date:10/18/2024 08:57:23 AM Interpretation: Performing Lab: Notes/Report: [facility] ,Hocolc138483-747 mmol/LPotassium3.93.5-5.1 mmol/GZezoymwo16039-192 mmol/LCarbon Migxpoz73.621.0-32.0 mmol/LAnion Gap11.2Vennttz2425-797 mg/dLBlood Urea Nitrogen 63.07.0-18.0 mg/dLCreatinine2.060.55-1.02 mg/dLEstimated GFR ( Akfwshy77 >=60 mL/min/1.73m 2Estimated GFR (Non- Ame24>=60 mL/min/1.73m 2BUN Creatinine Ratio30.5Jeareal5.08.5-10.1 mg/dLPerforming Lab:see noteML - [facility] LBCBC AUTO DIFF Reviewed date:10/22/2024 03:59:28 PM Interpretation: Performing Lab: Notes/Report: [facility] ,White Blood Count6.54.0-11.0 10 3/uLRed Blood Count3.514.20-5.40 10 6/uL Paqehntcuf23.812.0-16.0 g/gRYqlezpngne46.236.0-48.0 %Mean Corpuscular Rbuozx09.4 81.0-99.0 fLMean Corpuscular Ohdhufcxpd22.826.7-34.0 pgMean Corpuscular HGB Conc 31.629.9-35.2 g/dLRed Cell Distribution Width14.211.0-15.0 %Platelet Sugzi843 150-450 10 3/uLMean Platelet Volume9.09.5-13.5 fLNeutrophils Percent Auto71.5 43.0-75.0 %Lymphocytes Percent Auto19.320.5-60.0 %Monocytes Percent Auto6.91.7- 12.0 %Eosinophils Percent Auto1.70.9-7.0 %Basophils Percent Auto0.30.2-2.0 % Immature Granulocytes Pct Auto0.30.0-0.5 %Neutrophils Absolute Auto4.71.4-6.5 10 3/uLLymphocytes Absolute Auto1.31.2-3.8 10 3/uLMonocytes Absolute Auto0.50.3-0.8 10 3/uLEosinophils Absolute Auto0.10.0-0.7 10 3/uLBasophils Absolute Auto0.00.0- 0.1 10 3/uLImmature Granulocytes Abs Auto0.020.00-0.03 10 3/uLPerforming Lab:see note - [facility] LBPROF 14(COMP METB) Reviewed date:11/12/2024 08:06:12 PM Interpretation: Performing Lab: Notes/Report: [facility] ,Dibdol405969-099 mmol/LPotassium3.43.5-5.1 mmol/UYtwgymim4834-174 mmol/LCarbon Kqgsssf84.521.0-32.0 mmol/LAnion Gap15.4Mfrlmaf89141-248 mg/dLBlood Urea Rhwwhgli339.07.0-18.0 mg/dLRESULTS CALLED TO JEREL ALVES, RNCreatinine2.560.55- 1.02 mg/dLEstimated GFR ( Wxkcwxd22>=60 mL/min/1.73m 2Estimated GFR (Non- Ame19>=60 mL/min/1.73m 2BUN Creatinine Ratio39.0Edshykx7.78.5-10.1 mg/dL Bilirubin Total0.20.2-1.0 mg/dLAspartate Amino Opawwfebgdn6038-47 U/LAlanine Dzklsezfnqupwpxy8097-62 U/LAlkaline Mhvndrkdoaw69661-158 U/LTotal Protein7.36.4- 8.2 g/dLAlbumin Level3.43.4-5.0 g/dLGlobulin3.9Albumin Globulin Ratio0.9 Performing Lab:see note - [facility] LBOsmolality Reviewed date:11/16/2024 11:46:04 AM Interpretation: Performing Lab: Notes/Report: [facility] ,Kfhgagjtrz701850-195 mOsmol/kg Performed at: - [facility] [address] [id number] [employer] Advisory Team Watch Officer: Nicolas Arenas MD, Phone: [phone] Performing Lab:see note - [facility] LBCBC AUTO DIFF Reviewed date:01/02/2025 06:15:12 PM Interpretation: Performing Lab: Notes/Report: [facility] ,White Blood Count5.74.0-11.0 10 3/uLRed Blood Count3.684.20-5.40 10 6/uL Dchgexhuvy93.412.0-16.0 g/xXOvkiucruot66.536.0-48.0 %Mean Corpuscular Dwzxbz83.8 81.0-99.0 fLMean Corpuscular Peeqawdjon05.026.7-34.0 pgMean Corpuscular HGB Conc 33.029.9-35.2 g/dLRed Cell Distribution Width12.911.0-15.0 %Platelet Acosy952 150-450 10 3/uLMean Platelet Volume9.99.5-13.5 fLNeutrophils Percent Auto70.2 43.0-75.0 %Lymphocytes Percent Auto19.620.5-60.0 %Monocytes Percent Auto6.81.7- 12.0 %Eosinophils Percent Auto2.80.9-7.0 %Basophils Percent Auto0.30.2-2.0 % Immature Granulocytes Pct Auto0.30.0-0.5 %Neutrophils Absolute Auto4.01.4-6.5 10 3/uLLymphocytes Absolute Auto1.11.2-3.8 10 3/uLMonocytes Absolute Auto0.40.3-0.8 10 3/uLEosinophils Absolute Auto0.20.0-0.7 10 3/uLBasophils Absolute Auto0.00.0- 0.1 10 3/uLImmature Granulocytes Abs Auto0.020.00-0.03 10 3/uLPerforming Lab:see note - [facility] LBFERRITIN Reviewed date:01/02/2025 06:15:12 PM Interpretation: Performing Lab: Notes/Report: [facility] ,Zmkdrnrq269.08.0-252.0 ng/mLPerforming Lab:see note - [facility] LBIRON AND TIBC Reviewed date:01/02/2025 06:15:12 PM Interpretation: Performing Lab: Notes/Report: [facility] ,Ymlu201.050.0-170.0 ug/dLTotal Iron Binding Ufzhszta132.0250.0-450.0 ug/dL Percent Iron Tkegbpmsys81.6Performing Lab:see note - [facility] LB CBC AUTO DIFF Reviewed date:01/02/2025 06:15:12 PM Interpretation: Performing Lab: Notes/Report: [facility] ,White Blood Count4.94.0-11.0 10 3/uLRed Blood Count3.564.20-5.40 10 6/uL Skirsyhbeh52.912.0-16.0 g/mMGwrjkzyvbd07.136.0-48.0 %Mean Corpuscular Tcupcg26.8 81.0-99.0 fLMean Corpuscular Qjxzyujmwo61.626.7-34.0 pgMean Corpuscular HGB Conc 32.029.9-35.2 g/dLRed Cell Distribution Width13.011.0-15.0 %Platelet Efuij980 150-450 10 3/uLMean Platelet Volume9.69.5-13.5 fLNeutrophils Percent Auto60.1 43.0-75.0 %Lymphocytes Percent Auto27.820.5-60.0 %Monocytes Percent Auto8.01.7- 12.0 %Eosinophils Percent Auto3.30.9-7.0 %Basophils Percent Auto0.60.2-2.0 % Immature Granulocytes Pct Auto0.20.0-0.5 %Neutrophils Absolute Auto2.91.4-6.5 10 3/uLLymphocytes Absolute Auto1.41.2-3.8 10 3/uLMonocytes Absolute Auto0.40.3-0.8 10 3/uLEosinophils Absolute Auto0.20.0-0.7 10 3/uLBasophils Absolute Auto0.00.0- 0.1 10 3/uLImmature Granulocytes Abs Auto0.010.00-0.03 10 3/uLPerforming Lab:see noteML - [facility] LBMAGNESIUM Reviewed date:01/02/2025 06:15:12 PM Interpretation: Performing Lab: Notes/Report: [facility] ,Magnesium2.91.8-2.4 mg/dLPerforming Lab:see noteML - [facility] LB MICROALB CREAT RATIO RANDOM Reviewed date:01/02/2025 06:15:12 PM Interpretation: Performing Lab: Notes/Report: [facility] ,Microalbumin Urine Random<1.3<=30.0 mg/dLCreatinine Urine Wcndeg29.8220.00- 300.00 mg/dLPerforming Lab:see noteML - [facility] LBPHOSPHORUS Reviewed date:01/02/2025 06:15:12 PM Interpretation: Performing Lab: Notes/Report: [facility] ,Phosphorus5.22.6-4.7 mg/dLPerforming Lab:see [facility] - [facility] LB PROF 14(COMP METB) Reviewed date:01/02/2025 06:15:12 PM Interpretation: Performing Lab: Notes/Report: [facility] ,Dpfqoj808915-459 mmol/LPotassium4.83.5-5.1 mmol/XDuxcakxf93687-994 mmol/LCarbon Mfydjne14.021.0-32.0 mmol/LAnion Gap15.7Xfsdqsq3215-306 mg/dLRESULTS CALLED TO Leidy Brown Urea Ckbnnwcs28.07.0-18.0 mg/dLCreatinine1.250.55-1.02 mg/dL Estimated GFR ( Xoicrud37>=60 mL/min/1.73m 2Estimated GFR (Non- Ame43>=60 mL/min/1.73m 2BUN Creatinine Ratio24.2Umgoifh0.38.5-10.1 mg/dL Bilirubin Total0.20.2-1.0 mg/dLAspartate Amino Jcblmschpnq0659-05 U/LAlanine Jmluaprgnfjczwwb2217-03 U/LAlkaline Pitohrvqpca71683-947 U/LTotal Protein6.16.4- 8.2 g/dLAlbumin Level2.93.4-5.0 g/dLGlobulin3.2Albumin Globulin Ratio0.9 Performing Lab:see note - [facility] LBUA RANDOM Reviewed date:01/02/2025 06:15:12 PM Interpretation: Performing Lab: Notes/Report: [facility] ,Color UrineLT. YELLOWYELLOWClarity UrineCLEARCLEARSpecific [place] Urine<=1.005 1.005-1.025pH Urine7.05.0-9.0Protein UrineNEGATIVENEG/TRACE mg/dLGlucose Urine UANEGATIVENEGATIVE mg/dLBilirubin UrineNEGATIVENEGATIVEKetones UrineNEGATIVE NEGATIVE mg/dLBlood UrineTRACE-INEGATIVENitrite UrineNEGATIVENEGATIVE Urobilinogen Urine0.20.2-1.0 EU/dLLeukocyte Esterase UrineTRACENEGATIVE Performing Lab:see note - [facility] LBURIC ACID SERUM Reviewed date:01/02/2025 06:15:12 PM Interpretation: Performing Lab: Notes/Report: [facility] ,Uric Acid5.82.6-6.0 mg/dLPerforming Lab:see note - [facility] LB URINE T PROTEIN CREAT RATIO Reviewed date:01/02/2025 06:15:12 PM Interpretation: Performing Lab: Notes/Report: [facility] ,Total Protein Urine Tmrolk36.2<=11.9 mg/dLProtein Creatinine Ratio Urine0.32 [facility] LBOsmolality Reviewed date:01/06/2025 12:29:14 PM Interpretation: Performing Lab: Notes/Report: [facility] ,Mmyrzmbxsy027366-039 mOsmol/kg Performed at: - [facility] [address] [id number] [employer] Advisory Team Watch Officer: Nicolas Arenas MD, Phone: [phone] Performing Lab:see note - [facility] LBCBC AUTO DIFF Reviewed date:01/07/2025 04:38:56 PM Interpretation: Performing Lab: Notes/Report: [facility] ,White Blood Count5.34.0-11.0 10 3/uLRed Blood Count3.524.20-5.40 10 6/uL Etlmzyjdnd15.912.0-16.0 g/vKKravhrbsfv17.136.0-48.0 %Mean Corpuscular Xjuuhy90.9 81.0-99.0 fLMean Corpuscular Zwgummeons98.026.7-34.0 pgMean Corpuscular HGB Conc 32.029.9-35.2 g/dLRed Cell Distribution Width13.311.0-15.0 %Platelet Owsal455 150-450 10 3/uLMean Platelet Volume9.39.5-13.5 fLNeutrophils Percent Auto61.3 43.0-75.0 %Lymphocytes Percent Auto25.420.5-60.0 %Monocytes Percent Auto9.31.7- 12.0 %Eosinophils Percent Auto3.20.9-7.0 %Basophils Percent Auto0.60.2-2.0 % Immature Granulocytes Pct Auto0.20.0-0.5 %Neutrophils Absolute Auto3.21.4-6.5 10 3/uLLymphocytes Absolute Auto1.31.2-3.8 10 3/uLMonocytes Absolute Auto0.50.3-0.8 10 3/uLEosinophils Absolute Auto0.20.0-0.7 10 3/uLBasophils Absolute Auto0.00.0- 0.1 10 3/uLImmature Granulocytes Abs Auto0.010.00-0.03 10 3/uLPerforming Lab:see noteML - [facility] LBPROF 14(COMP METB) Reviewed date:01/07/2025 04:38:56 PM Interpretation: Performing Lab: Notes/Report: [facility] ,Fxfyju136807-632 mmol/LPotassium4.73.5-5.1 mmol/QLqozyncy27661-026 mmol/LCarbon Sqfqwza89.921.0-32.0 mmol/LAnion Gap10.2Ceawgot8649-743 mg/dLBlood Urea Nitrogen 34.07.0-18.0 mg/dLCreatinine1.540.55-1.02 mg/dLEstimated GFR ( Ztepoer69 >=60 mL/min/1.73m 2Estimated GFR (Non- Ame34>=60 mL/min/1.73m 2BUN Creatinine Ratio22.6Nzysqxe7.48.5-10.1 mg/dLBilirubin Total0.20.2-1.0 mg/dL Aspartate Amino Ajmnzpvlypr6308-77 U/LAlanine Cwbkzcpqgamrgctb1176-92 U/L Alkaline Tayvmzmpegg47418-246 U/LTotal Protein6.26.4-8.2 g/dLAlbumin Level2.5 3.4-5.0 g/dLGlobulin3.7Albumin Globulin Ratio0.7Performing Lab:see noteML - [facility] LBCT abdomen pelvis w con Reviewed date:01/21/2025 02:22:57 PM Interpretation: Performing Lab: Notes/Report: Source Facility: [facility]-[address] [place] [address] [address] [address] Scan Report Signed Patient: JOSE MOSER MR#: [id number] : 1960 Acct:[id number] Age/Sex: 64 / F ADM Date: 01/21/25 Loc: CT Attending Dr: Angle Godinez M.D. Ordering Physician: Angle Godinez M.D. Date of Service: 01/21/25 Procedure(s): CT abdomen pelvis w con Accession Number(s): [id number] cc: Angle Godinez M.D. [address] [address] Patient Name: JOSE MOSER MRN: [facility]:[id number] date: 1960 Sex: F Assigned Patient Location: CT Current Patient Location: CT Accession/Order Number: [id number] Exam Date: 01/21/2025 11:45 Report Date: 01/21/2025 [...] Brunner M.D. 01/21/2025 11:54 AM Dictation Location: [place] [address] Electronically authenticated by: [id number] Y Date: 01/21/2025 11:54 Dictated By: Alysia Brunner M.D. Signed By: 01/21/25 1156 DD/ 1154 TD/TT: [employer]:XR lumbar spine 2-3V Reviewed date:01/27/2025 06:31:59 PM Interpretation: Performing Lab: Notes/Report: Source Facility: [place] [id number] XRay Report Signed Patient: JOSE MOSER MR#: [id number] : 1960 Acct:[id number] Age/Sex: 64 / F ADM Date: 01/27/25 Loc: [facility] Attending Dr: Angle Godinez M.D. Ordering Physician: Angle Godinez M.D. Date of Service: 01/27/25 Procedure(s): XR lumbar spine 2-3V Accession Number(s): [id number] cc: Angle Godinez M.D. [place] [address] Patient Name: JOSE MOSER MRN: [id number] date: 1960 Sex: F Assigned Patient Location: [facility] Current Patient Location: [facility] Accession/Order Number: [id number] Exam Date: 01/27/2025 14:32 Report Date: 01/27/2025 [...] STUDY. Impression dictated by: Chris Puri Jr., Lora 01/27/2025 2:35 PM Dictation Location: [place] [address] Electronically authenticated by: [id number] Y Date: 01/27/2025 14:35 Dictated By: Chris Puri M.D. Signed By: 01/27/258 DD/ 34 TD/TT: [employer]:CBC AUTO DIFF Reviewed date:02/04/2025 04:08:34 PM Interpretation: Performing Lab: Notes/Report: [facility] ,White Blood Count5.14.0-11.0 10 3/uLRed Blood Count3.574.20-5.40 10 6/uL Jkyxkdgruf77.612.0-16.0 g/yWUrssgxbxoi66.436.0-48.0 %Mean Corpuscular Qhcuab17.4 81.0-99.0 fLMean Corpuscular Hgcqtcymwz38.726.7-34.0 pgMean Corpuscular HGB Conc 30.829.9-35.2 g/dLRed Cell Distribution Width14.711.0-15.0 %Platelet Wubyc963 150-450 10 3/uLMean Platelet Volume9.79.5-13.5 fLNeutrophils Percent Auto63.9 43.0-75.0 %Lymphocytes Percent Auto25.820.5-60.0 %Monocytes Percent Auto7.01.7- 12.0 %Eosinophils Percent Auto2.50.9-7.0 %Basophils Percent Auto0.60.2-2.0 % Immature Granulocytes Pct Auto0.20.0-0.5 %Neutrophils Absolute Auto3.31.4-6.5 10 3/uLLymphocytes Absolute Auto1.31.2-3.8 10 3/uLMonocytes Absolute Auto0.40.3-0.8 10 3/uLEosinophils Absolute Auto0.10.0-0.7 10 3/uLBasophils Absolute Auto0.00.0- 0.1 10 3/uLImmature Granulocytes Abs Auto0.010.00-0.03 10 3/uLPerforming Lab:see note - [facility] LBPROF 14(COMP METB) Reviewed date:02/04/2025 04:08:34 PM Interpretation: Performing Lab: Notes/Report: [facility] ,Akzptg799799-130 mmol/LPotassium4.43.5-5.1 mmol/PTfltzopu93792-721 mmol/LCarbon Xdnuxwv69.321.0-32.0 mmol/LAnion Gap10.0Ogmyomw3433-076 mg/dLBlood Urea Nitrogen 23.07.0-18.0 mg/dLCreatinine1.410.55-1.02 mg/dLEstimated GFR ( Pbmncwv43 >=60 mL/min/1.73m 2Estimated GFR (Non- Ame38>=60 mL/min/1.73m 2BUN Creatinine Ratio16.2Msztytv0.48.5-10.1 mg/dLBilirubin Total0.20.2-1.0 mg/dL Aspartate Amino Xepxrztpxck8676-03 U/LAlanine Mdyoqhzfscyhqtwc2635-20 U/L Alkaline Vmaaolzzxev47695-549 U/LTotal Protein6.56.4-8.2 g/dLAlbumin Level3.1 3.4-5.0 g/dLGlobulin3.4Albumin Globulin Ratio0.9Performing Lab:see note - [facility] LBOsmolality Reviewed date:03/26/2025 12:51:57 PM Interpretation: Performing Lab: Notes/Report: [facility] ,Pkvbthtdmh274197-401 mOsmol/kg Performed at: - [facility] [id number] [employer] Advisory Team Watch Officer: Nicolas Arenas MD, Phone: [phone] Performing Lab:see noteLC - [facility] thoracic spine wo con Reviewed date:03/18/2025 05:39:28 PM Interpretation: Performing Lab: Notes/Report: Source Facility: [place] [id number] Magnetic Resonance Report Signed Patient: JOSE MOSER MR#: [id number] : 1960 Acct:[id number] Age/Sex: 65 / F ADM Date: 03/18/25 Loc: MRI Attending Dr: Angle Godinez M.D. Ordering Physician: Angle Godinez M.D. Date of Service: 03/18/25 Procedure(s): MR thoracic spine wo con Accession Number(s): [id number] cc: Angle Godinez M.D. [place] [address] Patient Name: JOSE MOSER MRN: [id number] date: 1960 Sex: F Assigned Patient Location: MRI Current Patient Location: MRI Accession/Order Number: [id number] Exam Date: 03/18/2025 13:00 Report Date: 03/18/2025 17:09 At the request of: ANGLE GODINEZ MD Procedure: MR thoracic spine wo con MRI thoracic spine performed without contrast INDICATION: Thoracic radiculopathy, chronic thoracic lumbar pain radiates into both shoulders and bilateral lower extremities COMPARISON: None FINDINGS: Mild to moderate dextrocurvature mid thoracic spine. Is minimal loss of height T5 and T7. Otherwise Otherwise the thoracic vertebral heights, alignment and bone marrow signal is unremarkable. Multilevel facet arthropathy lower greatest lower thoracic spine. Moderate changes involving the lower thoracic disc spaces. The thoracic cord demonstrates normal signal morphology. Paraspinal soft tissues demonstrate abnormally dilated common bile duct measuring 2.4 cm T1-T8: Mild facet arthropathy. No significant disease central canal or neural from narrowing identified. T8-T11 moderate severe facet arthropathy. Mild foraminal narrowing. Moderate stenosis at T10-11. T11-12: Moderate arthropathy with moderate foraminal narrowing. Mild to moderate stenosis. T12-L1: Broad-based disc bulge with moderate severe facet arthropathy. There is moderate severe right and moderate left foraminal narrowing. Moderate stenosis. MR/MR thoracic spine wo con IMPRESSION: Ddsx-oj-zhdcnyeb degenerative changes lower thoracic spine predominantly caused by posterior elements degeneration. Moderate canal narrowing at T10-11 due to hypertrophic changes of the ligamentum flavum. Impression dictated by: Carlyle Alexander M.D. 03/18/2025 5:09 PM Dictation Location: [place] [address] Electronically authenticated by: [id number] Y Date: 03/18/2025 17:09 Dictated By: Carlyle Alexander M.D. Signed By: 03/18/25 1711 DD/ 170 TD/TT: [employer]:CBC AUTO DIFF Reviewed date:04/23/2025 12:58:51 PM Interpretation: Performing Lab: Notes/Report: [facility] ,White Blood Count7.34.0-11.0 10 3/uLRed Blood Count3.394.20-5.40 10 6/uL Xxoglxuqcm29.612.0-16.0 g/tDHplloupkws77.436.0-48.0 %Mean Corpuscular Oplzll11.5 81.0-99.0 fLMean Corpuscular Jwqzvgrayv65.326.7-34.0 pgMean Corpuscular HGB Conc 31.729.9-35.2 g/dLRed Cell Distribution Width14.211.0-15.0 %Platelet Svbns941 150-450 10 3/uLMean Platelet Volume9.29.5-13.5 fLNeutrophils Percent Auto74.7 43.0-75.0 %Lymphocytes Percent Auto15.820.5-60.0 %Monocytes Percent Auto4.81.7- 12.0 %Eosinophils Percent Auto3.90.9-7.0 %Basophils Percent Auto0.40.2-2.0 % Immature Granulocytes Pct Auto0.40.0-0.5 %Neutrophils Absolute Auto5.41.4-6.5 10 3/uLLymphocytes Absolute Auto1.21.2-3.8 10 3/uLMonocytes Absolute Auto0.40.3-0.8 10 3/uLEosinophils Absolute Auto0.30.0-0.7 10 3/uLBasophils Absolute Auto0.00.0- 0.1 10 3/uLImmature Granulocytes Abs Auto0.030.00-0.03 10 3/uLPerforming Lab:see note - [facility] LBOsmolality Reviewed date:04/28/2025 06:26:40 PM Interpretation: Performing Lab: Notes/Report: [facility] ,Rshztpejeb985899-876 mOsmol/kg Performed at: [address] [id number] [employer] Advisory Team Watch Officer: Nicolas Arensa MD, Phone: [phone] [facility] LBPROF [facility](COMP METB) Reviewed date:05/14/2024 08:03:43 PM Interpretation: Performing Lab: Notes/Report: [facility] ,Lavhaw646637-187 mmol/LPotassium4.43.5-5.1 mmol/UKnrauibi88881-793 mmol/LCarbon Eiysktn13.721.0-32.0 mmol/LAnion Gap14.7Akejgfz4412-697 mg/dLBlood Urea Nitrogen 53.07.0-18.0 mg/dLCreatinine1.740.55-1.02 mg/dLEstimated GFR ( Rhsefvp82 >=60 mL/min/1.73m 2Estimated GFR (Non- Ame30>=60 mL/min/1.73m 2BUN Creatinine Ratio30.9Yayyfvi3.58.5-10.1 mg/dLBilirubin Total0.20.2-1.0 mg/dL Aspartate Amino Kmrnytthusn2570-47 U/LAlanine Fleeaiyyrtynxzrw7127-63 U/L Alkaline Zrqwxtimphl98680-570 U/LTotal Protein6.96.4-8.2 g/dLAlbumin Level3.2 3.4-5.0 g/dLGlobulin3.7Albumin Globulin Ratio0.9Performing Lab:see note - [facility] LBOsmolality Reviewed date:05/20/2024 02:02:21 PM Interpretation: Performing Lab: Notes/Report: [facility] ,Bhvptaxnwe341964-221 mOsmol/kg Performed at: BN - [facility] [address] [id number] [employer] Advisory Team Watch Officer: Nicolas Arenas MD, Phone: [phone] Performing Lab:see note - [facility] LBOsmolality Reviewed date:05/26/2024 12:15:00 PM Interpretation: Performing Lab: Notes/Report: [facility] ,Wynctevqzg377008-072 mOsmol/kg Performed at: - [facility] [id number] [employer] Advisory Team Watch Officer: Nicolas Arenas MD, Phone: [phone] Performing Lab:see note - [facility] LBPROF 14(COMP METB) Reviewed date:05/28/2024 08:26:27 PM Interpretation: Performing Lab: Notes/Report: [facility] ,Svkmgu329138-234 mmol/LPotassium4.43.5-5.1 mmol/RWnkshspg46347-433 mmol/LCarbon Dcdpujg03.321.0-32.0 mmol/LAnion Gap14.5Bomspon02121-215 mg/dLBlood Urea Yvwzycba15.07.0-18.0 mg/dLCreatinine1.980.55-1.02 mg/dLEstimated GFR ( Hnmmhgc28>=60 mL/min/1.73m 2Estimated GFR (Non- Ame26>=60 mL/min/1.73m 2 BUN Creatinine Ratio32.6Kblxwug7.68.5-10.1 mg/dLBilirubin Total0.20.2-1.0 mg/dL Aspartate Amino Xrzyhaitijd4174-71 U/LAlanine Rxrfzzhneumrayjg2104-18 U/L Alkaline Skbrjpwjzep49285-903 U/LTotal Protein7.26.4-8.2 g/dLAlbumin Level3.3 3.4-5.0 g/dLGlobulin3.9Albumin Globulin Ratio0.8Performing Lab:see noteML - [facility] LBCBC AUTO DIFF Reviewed date:06/12/2024 03:53:07 PM Interpretation: Performing Lab: Notes/Report: [facility] ,White Blood Count6.64.0-11.0 10 3/uLRed Blood Count3.524.20-5.40 10 6/uL Kstkyaofra36.012.0-16.0 g/eLPqocghwemi82.836.0-48.0 %Mean Corpuscular Kcdvcr42.2 81.0-99.0 fLMean Corpuscular Qrcucacwpv16.426.7-34.0 pgMean Corpuscular HGB Conc 30.529.9-35.2 g/dLRed Cell Distribution Width17.111.0-15.0 %Platelet Ufdwr675 150-450 10 3/uLMean Platelet Volume8.89.5-13.5 fLNeutrophils Percent Auto63.2 43.0-75.0 %Lymphocytes Percent Auto23.820.5-60.0 %Monocytes Percent Auto8.01.7- 12.0 %Eosinophils Percent Auto3.90.9-7.0 %Basophils Percent Auto0.60.2-2.0 % Immature Granulocytes Pct Auto0.50.0-0.5 %Neutrophils Absolute Auto4.21.4-6.5 10 3/uLLymphocytes Absolute Auto1.61.2-3.8 10 3/uLMonocytes Absolute Auto0.50.3-0.8 10 3/uLEosinophils Absolute Auto0.30.0-0.7 10 3/uLBasophils Absolute Auto0.00.0- 0.1 10 3/uLImmature Granulocytes Abs Auto0.030.00-0.03 10 3/uLPerforming Lab:see noteML - [facility] LBOsmolality Reviewed date:06/17/2024 07:08:27 PM Interpretation: Performing Lab: Notes/Report: [facility] ,Hgfailwepb894219-670 mOsmol/kg Performed at: [facility] [id number] [employer] Advisory Team Watch Officer: Nicolas Arenas MD, Phone: [phone] Performing Lab:see note - [facility] LBCBC AUTO DIFF Reviewed date:07/02/2024 03:26:48 PM Interpretation: Performing Lab: Notes/Report: [facility] ,White Blood Count4.24.0-11.0 10 3/uLRed Blood Count3.564.20-5.40 10 6/uL Lyhboruujv65.412.0-16.0 g/bCHermbiuelo97.236.0-48.0 %Mean Corpuscular Xcpugc36.3 81.0-99.0 fLMean Corpuscular Szjdpblaxx34.226.7-34.0 pgMean Corpuscular HGB Conc 31.329.9-35.2 g/dLRed Cell Distribution Width16.411.0-15.0 %Platelet Yovub626 150-450 10 3/uLMean Platelet Volume9.59.5-13.5 fLNeutrophils Percent Auto56.9 43.0-75.0 %Lymphocytes Percent Auto28.820.5-60.0 %Monocytes Percent Auto11.01.7- 12.0 %Eosinophils Percent Auto2.40.9-7.0 %Basophils Percent Auto0.20.2-2.0 % Immature Granulocytes Pct Auto0.70.0-0.5 %Neutrophils Absolute Auto2.41.4-6.5 10 3/uLLymphocytes Absolute Auto1.21.2-3.8 10 3/uLMonocytes Absolute Auto0.50.3-0.8 10 3/uLEosinophils Absolute Auto0.10.0-0.7 10 3/uLBasophils Absolute Auto0.00.0- 0.1 10 3/uLImmature Granulocytes Abs Auto0.030.00-0.03 10 3/uLPerforming Lab:see noteML - [facility] LBCBC AUTO DIFF Reviewed date:07/18/2024 12:12:59 PM Interpretation: Performing Lab: Notes/Report: [facility] ,White Blood Count5.74.0-11.0 10 3/uLRed Blood Count3.664.20-5.40 10 6/uL Yjejoglrkq04.512.0-16.0 g/mKCodcunuasl15.136.0-48.0 %Mean Corpuscular Ixixra05.9 81.0-99.0 fLMean Corpuscular Ejjehtgpjk22.726.7-34.0 pgMean Corpuscular HGB Conc 29.929.9-35.2 g/dLRed Cell Distribution Width15.911.0-15.0 %Platelet Mzeqr081 150-450 10 3/uLMean Platelet Volume8.99.5-13.5 fLNeutrophils Percent Auto70.9 43.0-75.0 %Lymphocytes Percent Auto16.420.5-60.0 %Monocytes Percent Auto8.91.7- 12.0 %Eosinophils Percent Auto2.80.9-7.0 %Basophils Percent Auto0.70.2-2.0 % Immature Granulocytes Pct Auto0.30.0-0.5 %Neutrophils Absolute Auto4.11.4-6.5 10 3/uLLymphocytes Absolute Auto0.91.2-3.8 10 3/uLMonocytes Absolute Auto0.50.3-0.8 10 3/uLEosinophils Absolute Auto0.20.0-0.7 10 3/uLBasophils Absolute Auto0.00.0- 0.1 10 3/uLImmature Granulocytes Abs Auto0.020.00-0.03 10 3/uLPerforming Lab:see noteML - [facility] LBOsmolality Reviewed date:07/21/2024 12:00:58 PM Interpretation: Performing Lab: Notes/Report: [facility] ,[id number] mOsmol/kg Performed at: - [address] [id number] [employer] Advisory Team Watch Officer: Nicolas Arenas MD, Phone: [phone] Performing Lab:see note - [facility] LBCBC AUTO DIFF Reviewed date:07/27/2024 04:09:36 PM Interpretation: Performing Lab: Notes/Report: [facility] ,White Blood Count6.54.0-11.0 10 3/uLRed Blood Count3.684.20-5.40 10 6/uL Iznzvlyztz54.012.0-16.0 g/bKFyuvywoqim89.536.0-48.0 %Mean Corpuscular Cxbmcm68.5 81.0-99.0 fLMean Corpuscular Lbidojbpwg48.926.7-34.0 pgMean Corpuscular HGB Conc 31.029.9-35.2 g/dLRed Cell Distribution Width15.611.0-15.0 %Platelet Lbeer628 150-450 10 3/uLMean Platelet Volume8.99.5-13.5 fLNeutrophils Percent Auto70.6 43.0-75.0 %Lymphocytes Percent Auto18.320.5-60.0 %Monocytes Percent Auto7.21.7- 12.0 %Eosinophils Percent Auto2.80.9-7.0 %Basophils Percent Auto0.50.2-2.0 % Immature Granulocytes Pct Auto0.60.0-0.5 %Neutrophils Absolute Auto4.61.4-6.5 10 3/uLLymphocytes Absolute Auto1.21.2-3.8 10 3/uLMonocytes Absolute Auto0.50.3-0.8 10 3/uLEosinophils Absolute Auto0.20.0-0.7 10 3/uLBasophils Absolute Auto0.00.0- 0.1 10 3/uLImmature Granulocytes Abs Auto0.040.00-0.03 10 3/uLPerforming Lab:see noteML - [facility] LBPROF 14(COMP METB) Reviewed date:07/27/2024 04:09:36 PM Interpretation: Performing Lab: Notes/Report: [facility] ,Sqstlr961470-915 mmol/LPotassium4.43.5-5.1 mmol/IAzbfmtyn21364-754 mmol/LCarbon Raubgvx33.421.0-32.0 mmol/LAnion Gap13.6Drtehhb9405-396 mg/dLBlood Urea Nitrogen 45.07.0-18.0 mg/dLCreatinine1.840.55-1.02 mg/dLEstimated GFR ( Hcxpsvc23 >=60 mL/min/1.73m 2Estimated GFR (Non- Ame28>=60 mL/min/1.73m 2BUN Creatinine Ratio24.7Stdlyxv2.48.5-10.1 mg/dLBilirubin Total0.10.2-1.0 mg/dL Aspartate Amino Wjpekorcgwn6590-00 U/LAlanine Nlwpcpwhhwnetcwb9643-99 U/L Alkaline Xbuarzfhmhf51614-674 U/LTotal Protein7.06.4-8.2 g/dLAlbumin Level3.3 3.4-5.0 g/dLGlobulin3.7Albumin Globulin Ratio0.9Performing Lab:see noteML - [facility] LBOsmolality Reviewed date:07/29/2024 07:44:52 PM Interpretation: Performing Lab: Notes/Report: [facility] ,Wdnczgrhdh045576-845 mOsmol/kg Performed at: [address] [id number] [employer] Advisory Team Watch Officer: Nicolas Arenas MD, Phone: [phone] Performing Lab:see noteLC - [facility] LBCBC AUTO DIFF Reviewed date:08/04/2024 11:09:08 AM Interpretation: Performing Lab: Notes/Report: [facility] ,White Blood Count6.44.0-11.0 10 3/uLRed Blood Count3.414.20-5.40 10 6/uL Paosvpxxeu35.212.0-16.0 g/dFMwkqzjfawa92.636.0-48.0 %Mean Corpuscular Gncpqx51.6 81.0-99.0 fLMean Corpuscular Ejxnummlra40.926.7-34.0 pgMean Corpuscular HGB Conc 31.329.9-35.2 g/dLRed Cell Distribution Width15.411.0-15.0 %Platelet Exaen561 150-450 10 3/uLMean Platelet Volume9.39.5-13.5 fLNeutrophils Percent Auto76.5 43.0-75.0 %Lymphocytes Percent Auto13.420.5-60.0 %Monocytes Percent Auto7.31.7- 12.0 %Eosinophils Percent Auto1.90.9-7.0 %Basophils Percent Auto0.30.2-2.0 % Immature Granulocytes Pct Auto0.60.0-0.5 %Neutrophils Absolute Auto4.91.4-6.5 10 3/uLLymphocytes Absolute Auto0.91.2-3.8 10 3/uLMonocytes Absolute Auto0.50.3-0.8 10 3/uLEosinophils Absolute Auto0.10.0-0.7 10 3/uLBasophils Absolute Auto0.00.0- 0.1 10 3/uLImmature Granulocytes Abs Auto0.040.00-0.03 10 3/uLPerforming Lab:see noteML - [facility] LBOsmolality Reviewed date:08/05/2024 01:00:46 PM Interpretation: Performing Lab: Notes/Report: [facility] ,Yryigswjrx389545-471 mOsmol/kg Performed at: [facility] [address] [id number] [employer] Advisory Team Watch Officer: Nicolas Arenas MD, Phone: [phone] Performing Lab:see note - [facility] LBXR HAND LT MIN 3V Reviewed date:08/05/2024 01:00:46 PM Interpretation: Performing Lab: Notes/Report: Source Facility: [place] [id number] XRay Report Signed Patient: JOSE MOSER MR#: [id number] : 1960 Acct:[id number] Age/Sex: 64 / F ADM Date: 08/02/24 Loc: RAD Attending Dr: Angle Godinez M.D. Ordering Physician: Angle Godinez M.D. Date of Service: 08/02/24 Procedure(s): XR hand LT min 3V Accession Number(s): [id number] cc: Angle Godinez M.D. [place] [address] Patient Name: JOSE MOSER MRN: [id number] date: 1960 Sex: F Assigned Patient Location: [employer] Current Patient Location: Accession/Order Number: [id number] Exam Date: 08/02/2024 12:30 Report Date: 08/05/2024 [...] Alcala M.D. Signed By: 08/05/2455 DD/ TD/TT: Telegraph Messenger:CBC AUTO DIFF Reviewed date:08/25/2024 12:31:05 PM Interpretation: Performing Lab: Notes/Report: [facility] ,White Blood Count6.94.0-11.0 10 3/uLRed Blood Count3.414.20-5.40 10 6/uL Aedrtafhem05.312.0-16.0 g/aBPmgjgfeawz16.936.0-48.0 %Mean Corpuscular Tijdfd66.5 81.0-99.0 fLMean Corpuscular Wnafheyyrv59.226.7-34.0 pgMean Corpuscular HGB Conc 31.329.9-35.2 g/dLRed Cell Distribution Width14.211.0-15.0 %Platelet Xsldn711 150-450 10 3/uLMean Platelet Volume9.59.5-13.5 fLNeutrophils Percent Auto69.9 43.0-75.0 %Lymphocytes Percent Auto18.520.5-60.0 %Monocytes Percent Auto7.71.7- 12.0 %Eosinophils Percent Auto3.10.9-7.0 %Basophils Percent Auto0.40.2-2.0 % Immature Granulocytes Pct Auto0.40.0-0.5 %Neutrophils Absolute Auto4.81.4-6.5 10 3/uLLymphocytes Absolute Auto1.31.2-3.8 10 3/uLMonocytes Absolute Auto0.50.3-0.8 10 3/uLEosinophils Absolute Auto0.20.0-0.7 10 3/uLBasophils Absolute Auto0.00.0- 0.1 10 3/uLImmature Granulocytes Abs Auto0.030.00-0.03 10 3/uLPerforming Lab:see noteML - [facility] LBOsmolality Reviewed date:08/28/2024 09:03:48 PM Interpretation: Performing Lab: Notes/Report: [facility] ,Yuaduidubl063362-520 mOsmol/kg Performed at: [address] [id number] [employer] Advisory Team Watch Officer: Nicolas Arenas MD, Phone: [phone] Performing Lab:see noteLC - [facility] LBOsmolality Reviewed date:09/03/2024 09:28:43 AM Interpretation: Performing Lab: Notes/Report: [facility] ,Cmbjcqjspy448193-352 mOsmol/kg Performed at: [facility] [address] [id number] [employer] Advisory Team Watch Officer: Nicolas Arenas MD, Phone: [phone] Performing Lab:see note - [facility] LBCBC AUTO DIFF Reviewed date:09/05/2024 06:43:23 PM Interpretation: Performing Lab: Notes/Report: [facility] ,White Blood Count6.04.0-11.0 10 3/uLRed Blood Count3.424.20-5.40 10 6/uL Mpkuxdxdql29.612.0-16.0 g/iJPrndpsqzwl22.636.0-48.0 %Mean Corpuscular Fjtexg12.2 81.0-99.0 fLMean Corpuscular Fgxtssbbtu67.026.7-34.0 pgMean Corpuscular HGB Conc 31.529.9-35.2 g/dLRed Cell Distribution Width14.211.0-15.0 %Platelet Yaewj305 150-450 10 3/uLMean Platelet Volume9.09.5-13.5 fLNeutrophils Percent Auto67.2 43.0-75.0 %Lymphocytes Percent Auto22.420.5-60.0 %Monocytes Percent Auto7.71.7- 12.0 %Eosinophils Percent Auto2.00.9-7.0 %Basophils Percent Auto0.50.2-2.0 % Immature Granulocytes Pct Auto0.20.0-0.5 %Neutrophils Absolute Auto4.01.4-6.5 10 3/uLLymphocytes Absolute Auto1.31.2-3.8 10 3/uLMonocytes Absolute Auto0.50.3-0.8 10 3/uLEosinophils Absolute Auto0.10.0-0.7 10 3/uLBasophils Absolute Auto0.00.0- 0.1 10 3/uLImmature Granulocytes Abs Auto0.010.00-0.03 10 3/uLPerforming Lab:see noteML - [facility] LBPROF 14(COMP METB) Reviewed date:09/05/2024 06:43:23 PM Interpretation: Performing Lab: Notes/Report: [facility] ,Mfxfhd550388-041 mmol/LPotassium3.83.5-5.1 mmol/YDirtosbc1855-636 mmol/LCarbon Rjhqfti48.521.0-32.0 mmol/LAnion Gap13.9Uzqokio4745-209 mg/dLBlood Urea Nitrogen 53.07.0-18.0 mg/dLCreatinine2.050.55-1.02 mg/dLEstimated GFR ( Bysryst52 >=60 mL/min/1.73m 2Estimated GFR (Non- Ame25>=60 mL/min/1.73m 2BUN Creatinine Ratio25.7Jyzyamw6.48.5-10.1 mg/dLBilirubin Total0.20.2-1.0 mg/dL Aspartate Amino Dztcwgkhihq2203-28 U/LAlanine Xdkbtupqdbemvquc3559-14 U/L Alkaline Tfxvnrdvany07496-479 U/LTotal Protein7.16.4-8.2 g/dLAlbumin Level3.3 3.4-5.0 g/dLGlobulin3.8Albumin Globulin Ratio0.9Performing Lab:see noteML - [facility] LBOsmolality Reviewed date:09/08/2024 02:59:02 PM Interpretation: Performing Lab: Notes/Report: [facility] ,Ogsgiwbnlm856378-532 mOsmol/kg [address] [place], [place] [id number] [employer] Advisory Team Watch Officer: Nicolas Arenas MD, Phone: [phone] Performed at: [facility] Performing Lab[facility] LBPROF 14(COMP METB) Reviewed date:09/11/2024 05:38:12 PM Interpretation: Performing Lab: Notes/Report: [facility] ,Lmdyen636480-724 mmol/LPotassium3.53.5-5.1 mmol/AYodnzldq96704-615 mmol/LCarbon Emwobrr41.921.0-32.0 mmol/LAnion Gap12.5Qjpgnwe8842-619 mg/dLBlood Urea Nitrogen 58.07.0-18.0 mg/dLCreatinine2.190.55-1.02 mg/dLEstimated GFR ( Rzirlcu65 >=60 mL/min/1.73m 2Estimated GFR (Non- Ame23>=60 mL/min/1.73m 2BUN Creatinine Ratio26.7Ikrilzh3.68.5-10.1 mg/dLBilirubin Total0.30.2-1.0 mg/dL Aspartate Amino Ofqtbssymyc5113-06 U/LAlanine Eymatmaspmuouyih2073-57 U/L Alkaline Mkoqcecqyry41846-972 U/LTotal Protein7.16.4-8.2 g/dLAlbumin Level3.6 3.4-5.0 g/dLGlobulin3.5Albumin Globulin Ratio1.0Performing Lab:see noteML - [facility] LBBNP Reviewed date:09/16/2024 08:39:55 PM Interpretation: Performing Lab: Notes/Report: [facility] ,NT Pro B Type Natriuretic Ywgg634.0<=900.0 pg/mLPerforming Lab:see note - [facility] LBCBC AUTO DIFF Reviewed date:09/15/2024 07:34:53 PM Interpretation: Performing Lab: Notes/Report: [facility] ,White Blood Count4.34.0-11.0 10 3/uLRed Blood Count3.184.20-5.40 10 6/uL Hemoglobin9.812.0-16.0 g/hGZfhdgnjzso84.436.0-48.0 %Mean Corpuscular Pslmpl76.7 81.0-99.0 fLMean Corpuscular Oyikvdouve77.826.7-34.0 pgMean Corpuscular HGB Conc 31.229.9-35.2 g/dLRed Cell Distribution Width13.711.0-15.0 %Platelet Elgri300 150-450 10 3/uLMean Platelet Volume8.89.5-13.5 fLNeutrophils Percent Auto59.3 43.0-75.0 %Lymphocytes Percent Auto22.420.5-60.0 %Monocytes Percent Auto14.81.7- 12.0 %Eosinophils Percent Auto2.80.9-7.0 %Basophils Percent Auto0.50.2-2.0 % Immature Granulocytes Pct Auto0.20.0-0.5 %Neutrophils Absolute Auto2.61.4-6.5 10 3/uLLymphocytes Absolute Auto1.01.2-3.8 10 3/uLMonocytes Absolute Auto0.60.3-0.8 10 3/uLEosinophils Absolute Auto0.10.0-0.7 10 3/uLBasophils Absolute Auto0.00.0- 0.1 10 3/uLImmature Granulocytes Abs Auto0.010.00-0.03 10 3/uLPerforming Lab:see noteML - [facility] LBINFLUENZA A AND B AG Reviewed date:09/15/2024 07:34:53 PM Interpretation: Performing Lab: Notes/Report: [facility] ,Influenza Virus A AntigenNegative Negative for Flu A protein antigen. Infection due to Flu A cannot be ruled out. Flu A antigen in the sample may be below the detection limit of the test. Influenza Virus B AntigenNegative Negative for Flu B protein antigen. Infection due to Flu B cannot be ruled out. Flu B antigen in the sample may be below the detection limit of the test. Performing Lab:see noteML - [facility] LBLACTATE or LACTIC ACID Reviewed date:09/16/2024 08:39:55 PM Interpretation: Performing Lab: Notes/Report: [facility] ,Lactate/Lactic Acid0.60.4-2.0 mmol/LPerforming Lab:see noteML - [facility] LBPROF 14(COMP METB) Reviewed date:09/16/2024 08:39:55 PM Interpretation: Performing Lab: Notes/Report: [facility] ,Yikxff830263-128 mmol/LPotassium3.73.5-5.1 mmol/MOdkfamiq8623-438 mmol/LCarbon Ftufyjo00.421.0-32.0 mmol/LAnion Gap13.3Hdgawkm6522-180 mg/dLBlood Urea Nitrogen 48.07.0-18.0 mg/dLCreatinine1.880.55-1.02 mg/dLEstimated GFR ( Upiokqw85 >=60 mL/min/1.73m 2Estimated GFR (Non- Ame27>=60 mL/min/1.73m 2BUN Creatinine Ratio25.2Oprnoss5.58.5-10.1 mg/dLBilirubin Total0.30.2-1.0 mg/dL Aspartate Amino Stulcvryzjg9877-69 U/LAlanine Qqqmvyttxraqoudr9364-48 U/L Alkaline Eqboourtqpi02785-585 U/LTotal Protein6.96.4-8.2 g/dLAlbumin Level3.2 3.4-5.0 g/dLGlobulin3.7Albumin Globulin Ratio0.9Performing Lab:see note - [facility] LBBlood Culture 1 Reviewed date:09/22/2024 03:51:35 PM Interpretation: Performing Lab: Notes/Report: [facility] ,Blood Culture 1See Below For Report Blood Culture 1 NG5D NO GROWTH AT 5 DAYS.^NO GROWTH AT 5 DAYS. Performing Lab:see note - [facility] LBBlood Culture 2 Reviewed date:09/22/2024 03:51:35 PM Interpretation: Performing Lab: Notes/Report: [facility] ,Blood Culture 2See Below For Report Blood Culture 2 NG5D NO GROWTH AT 5 DAYS.^NO GROWTH AT 5 DAYS. Performing Lab:see note - [facility] LBProthrombin Time INR Reviewed date:09/16/2024 08:39:55 PM Interpretation: Performing Lab: Notes/Report: [facility] ,Prothrombin Time10.99.0-11.6 secINR1.03 DESIRED INR: 2.0-3.0 CONDITIONS NOT LISTED BELOW 2.5-3.5 FOR PROSTHETIC HEART VALVE REPLACEMENT 2.5-3.5 RECURRENT THROMBOSIS Performing Lab:see [facility] LBTroponin I High Sensitivity Reviewed date:09/16/2024 08:39:55 PM Interpretation: Performing Lab: Notes/Report: [facility] ,Troponin I High Zujkquetmnj27.14.0-51.3 pg/mL CUT-OFF POINTS HAVE BEEN ESTABLISHED BASED [...] WITH OTHER DIAGNOSTIC AND CLINICAL INFORMATION. Performing Lab:see note - [facility] LBVenous Blood Gas Reviewed date:09/16/2024 08:39:55 PM Interpretation: Performing Lab: Notes/Report: [facility] ,pH VBG7.3467.330-7.821TLY0 VBG47.840.0-52.0 mmHgPerforming Lab:see noteML - [facility] RIYGNT-JrC-7 Ag* Reviewed date:09/15/2024 07:34:53 PM Interpretation: Performing Lab: Notes/Report: [facility] ,SARS-CoV-2 AgNEGATIVENEGATIVE This test has not been FDA cleared [...] terminated or authorization is revoked sooner. Performing Lab:see noteML - [facility] LBECG 12 lead Reviewed date:09/16/2024 08:39:55 PM Interpretation: Performing Lab: Notes/Report: Source Facility: [place] [address] [place] [address] Electrocardiograph Report Signed Patient: JOSE MOSER MR#: [id number] : 1960 Acct:[id number] Age/Sex: 64 / F ADM Date: 09/15/24 Loc: [place] 218-[address]: Angle Godinez M.D. Ordering Physician: Jade Maya Date of Service: 09/15/24 Procedure(s): ECG 12 lead Accession Number(s): [id number] cc: [facility] Test Date: 2024-09-15 Pat Name: JOSE MOSER Department: Room: - Gender: Female [employer]: : 1960 Requested By: 0929 Order Number: [id number] Reading MD: BENJIE DANG M.D. Measurements Intervals [place] Rate: 84 P: 90 WV: 142 QRS: -4 QRSD: 98 T: -6 QT: 384 QTc: 424 Interpretive Statements NORMAL SINUS RHYTHM Minimal voltage criteria for LVH, may be normal variant ARTIFACT IN LEAD(S) Borderline ECG Compared to ECG 03/29/2024 14:03:36 No significant change Electronically Signed On 09-16-2024 7:08:51 EDT by BENJIE DANG M.D. Dictated By: BENJIE DANG Signed By: 09/16/24708 DD/ 19 TD/TT: [employer] Messenger:MAGNESIUM Reviewed date:09/16/2024 08:39:55 PM Interpretation: Performing Lab: Notes/Report: Comment use blood this am? [facility] ,Magnesium2.11.8-2.4 mg/dLPerforming Lab:see noteML - [facility] PROF CHEM 8 (BAS METB) Reviewed date:09/16/2024 08:39:55 PM Interpretation: Performing Lab: Notes/Report: [facility] ,Eagztw391187-815 mmol/LPotassium3.53.5-5.1 mmol/QJsttdgrh30169-509 mmol/LCarbon Muxpdkq93.021.0-32.0 mmol/LAnion Gap9.1Wctuggn6106-276 mg/dLBlood Urea Nitrogen 45.07.0-18.0 mg/dLCreatinine1.760.55-1.02 mg/dLEstimated GFR ( Dfrqrji65 >=60 mL/min/1.73m 2Estimated GFR (Non- Ame29>=60 mL/min/1.73m 2BUN Creatinine Ratio25.4Vheltqe3.08.5-10.1 mg/dLPerforming Lab:see noteML - [facility] LBCBC no Diff (Hemogram) Reviewed date:09/16/2024 08:39:55 PM Interpretation: Performing Lab: Notes/Report: [facility] ,White Blood Count3.64.0-11.0 10 3/uLRed Blood Count2.984.20-5.40 10 6/uL Hemoglobin9.212.0-16.0 g/tWSnhultolmc39.436.0-48.0 %Mean Corpuscular Npfnam48.7 81.0-99.0 fLMean Corpuscular Ijouuljuoz93.926.7-34.0 pgMean Corpuscular HGB Conc 31.329.9-35.2 g/dLRed Cell Distribution Width13.811.0-15.0 %Platelet Iennp991 150-450 10 3/uLMean Platelet Volume8.99.5-13.5 fLPerforming Lab:see note - [facility] LBPROF CHEM 8 (BAS METB) Reviewed date:09/17/2024 12:10:47 PM Interpretation: Performing Lab: Notes/Report: [facility] ,Evjdrg785851-793 mmol/LPotassium3.53.5-5.1 mmol/AXyrhmogp59247-245 mmol/LCarbon Dhwvulk58.321.0-32.0 mmol/LAnion Gap10.1Gtccfzs17964-939 mg/dLBlood Urea Ekwzpkka10.07.0-18.0 mg/dLCreatinine1.780.55-1.02 mg/dLEstimated GFR ( Nsfvqar10>=60 mL/min/1.73m 2Estimated GFR (Non- Ame29>=60 mL/min/1.73m 2 BUN Creatinine Ratio24.8Xwoyacu3.38.5-10.1 mg/dLPerforming Lab:see note - [facility] LBFERRITIN Reviewed date:09/29/2024 03:19:39 PM Interpretation: Performing Lab: Notes/Report: [facility] ,Tdrrzbvy673.08.0-252.0 ng/mLPerforming Lab:see note - [facility] LBIRON AND TIBC Reviewed date:09/29/2024 03:19:39 PM Interpretation: Performing Lab: Notes/Report: [facility] ,Iron71.050.0-170.0 ug/dLTotal Iron Binding Reffabcx106.0250.0-450.0 ug/dL Percent Iron Vfhsboisms66.2Performing Lab:see noteML - [facility] LB CBC AUTO DIFF Reviewed date:10/07/2024 08:19:45 PM Interpretation: Performing Lab: Notes/Report: [facility] ,White Blood Count7.74.0-11.0 10 3/uLRed Blood Count3.344.20-5.40 10 6/uL Wtdsndnqcf88.112.0-16.0 g/hCCkgzasdylw55.236.0-48.0 %Mean Corpuscular Egoeim90.4 81.0-99.0 fLMean Corpuscular Cgqukloekw91.226.7-34.0 pgMean Corpuscular HGB Conc 31.429.9-35.2 g/dLRed Cell Distribution Width13.311.0-15.0 %Platelet Yomqn356 150-450 10 3/uLMean Platelet Volume8.99.5-13.5 fLNeutrophils Percent Auto77.9 43.0-75.0 %Lymphocytes Percent Auto12.620.5-60.0 %Monocytes Percent Auto7.01.7- 12.0 %Eosinophils Percent Auto2.00.9-7.0 %Basophils Percent Auto0.10.2-2.0 % Immature Granulocytes Pct Auto0.40.0-0.5 %Neutrophils Absolute Auto6.01.4-6.5 10 3/uLLymphocytes Absolute Auto1.01.2-3.8 10 3/uLMonocytes Absolute Auto0.50.3-0.8 10 3/uLEosinophils Absolute Auto0.20.0-0.7 10 3/uLBasophils Absolute Auto0.00.0- 0.1 10 3/uLImmature Granulocytes Abs Auto0.030.00-0.03 10 3/uLPerforming Lab:see noteML - [facility] LBPROF 14(COMP METB) Reviewed date:10/07/2024 08:19:45 PM Interpretation: Performing Lab: Notes/Report: [facility] ,Sglxww119604-149 mmol/LPotassium4.33.5-5.1 mmol/IPhrmljma05567-395 mmol/LCarbon Dzxakvb23.321.0-32.0 mmol/LAnion Gap12.7Bgmlgxd8182-314 mg/dLBlood Urea Nitrogen 61.07.0-18.0 mg/dLCreatinine1.630.55-1.02 mg/dLEstimated GFR ( Ntzktew47 >=60 mL/min/1.73m 2Estimated GFR (Non- Ame32>=60 mL/min/1.73m 2BUN Creatinine Ratio37.6Gryjasd0.58.5-10.1 mg/dLBilirubin Total0.20.2-1.0 mg/dL Aspartate Amino Aripwykowvy4283-75 U/LAlanine Aaoaahognzaqtzut8831-76 U/L Alkaline Nsmwngipyij95812-769 U/LTotal Protein7.06.4-8.2 g/dLAlbumin Level3.4 3.4-5.0 g/dLGlobulin3.6Albumin Globulin Ratio0.9Performing Lab:see noteML - [facility] LBCBC AUTO DIFF Reviewed date:10/15/2024 02:22:26 PM Interpretation: Performing Lab: Notes/Report: [facility] ,White Blood Count5.34.0-11.0 10 3/uLRed Blood Count3.244.20-5.40 10 6/uL Hemoglobin9.812.0-16.0 g/iSImarycnwuw64.936.0-48.0 %Mean Corpuscular Cbkoeq57.5 81.0-99.0 fLMean Corpuscular Yevbnpcqpm47.226.7-34.0 pgMean Corpuscular HGB Conc 30.729.9-35.2 g/dLRed Cell Distribution Width13.411.0-15.0 %Platelet Nyhnf525 150-450 10 3/uLMean Platelet Volume8.99.5-13.5 fLNeutrophils Percent Auto64.1 43.0-75.0 %Lymphocytes Percent Auto24.020.5-60.0 %Monocytes Percent Auto8.11.7- 12.0 %Eosinophils Percent Auto3.00.9-7.0 %Basophils Percent Auto0.60.2-2.0 % Immature Granulocytes Pct Auto0.20.0-0.5 %Neutrophils Absolute Auto3.41.4-6.5 10 3/uLLymphocytes Absolute Auto1.31.2-3.8 10 3/uLMonocytes Absolute Auto0.40.3-0.8 10 3/uLEosinophils Absolute Auto0.20.0-0.7 10 3/uLBasophils Absolute Auto0.00.0- 0.1 10 3/uLImmature Granulocytes Abs Auto0.010.00-0.03 10 3/uLPerforming Lab:see note - [facility] LBOsmolality Reviewed date:10/17/2024 01:08:03 PM Interpretation: Performing Lab: Notes/Report: [facility] ,Cwnigmksjy601512-826 mOsmol/kg Performed at: [facility] [address] [id number] [employer] Team Watch Officer: Nicolas Arenas MD, Phone: [phone] Performing Lab[facility] LBECG 12 lead Reviewed date:10/15/2024 08:28:30 PM Interpretation: Performing Lab: Notes/Report: Source Facility: [place] [id number] Electrocardiograph Report Signed Patient: JOSE MOSER MR#: [id number] : 1960 Acct:[id number] Age/Sex: 64 / F ADM Date: 10/15/24 Loc: ER Attending Dr: Ordering Physician: Chapo Venegas M.D. Date of Service: 10/15/24 Procedure(s): ECG 12 lead Accession Number(s): [id number] cc: [facility] Test Date: 2024-10-15 Pat Name: JOSE MOSER Department: Room: - Gender: Female [employer]: : 1960 Requested By: 1030 Order Number: [id number] Reading MD: NEHEMIAH CAMPBELL Measurements Intervals [place] Rate: 83 P: 80 WV: 170 QRS: 20 QRSD: 98 T: 22 QT: 364 QTc: 404 Interpretive Statements 1100 Sinus rhythm 9110 normal ECG Compared to ECG 09/15/2024 19:20:09 Left ventricular hypertrophy no longer present Electronically Signed On 10-15-2024 18:22:52 EDT by NEHEMIAH CAMPBELL Dictated By: Nehemiah Campbell M.D. Signed By: 10/15/24 1823 DD/ 1622 TD/TT: Telegraph Messenger:PROF NOAH Juarez ([facility]) Reviewed date:10/16/2024 10:15:17 AM Interpretation: Performing Lab: Notes/Report: [facility] ,Hhfwly260401-756 mmol/LPotassium3.93.5-5.1 mmol/XVmfaevbv22471-727 mmol/LCarbon Pnushpz24.521.0-32.0 mmol/LAnion Gap15.5Tzaifak39999-451 mg/dLBlood Urea Nwacxgxn00.07.0-18.0 mg/dLCreatinine2.040.55-1.02 mg/dLEstimated GFR ( Dghcesp24>=60 mL/min/1.73m 2Estimated GFR (Non- Ame25>=60 mL/min/1.73m 2 BUN Creatinine Ratio32.1Lylbvgf1.48.5-10.1 mg/dLPerforming Lab:see noteML - [facility] LBCBC AUTO DIFF Reviewed date:10/17/2024 01:08:03 PM Interpretation: Performing Lab: Notes/Report: [facility] ,White Blood Count5.94.0-11.0 10 3/uLRed Blood Count2.974.20-5.40 10 6/uL Hemoglobin9.112.0-16.0 g/cFVenmqhznke42.736.0-48.0 %Mean Corpuscular Ugeiqx436.0 81.0-99.0 fLMean Corpuscular Bgojntbglj95.626.7-34.0 pgMean Corpuscular HGB Conc 30.629.9-35.2 g/dLRed Cell Distribution Width13.611.0-15.0 %Platelet Yilpg226 150-450 10 3/uLMean Platelet Volume9.09.5-13.5 fLNeutrophils Percent Auto74.8 43.0-75.0 %Lymphocytes Percent Auto15.520.5-60.0 %Monocytes Percent Auto8.11.7- 12.0 %Eosinophils Percent Auto1.00.9-7.0 %Basophils Percent Auto0.30.2-2.0 % Immature Granulocytes Pct Auto0.30.0-0.5 %Neutrophils Absolute Auto4.41.4-6.5 10 3/uLLymphocytes Absolute Auto0.91.2-3.8 10 3/uLMonocytes Absolute Auto0.50.3-0.8 10 3/uLEosinophils Absolute Auto0.10.0-0.7 10 3/uLBasophils Absolute Auto0.00.0- 0.1 10 3/uLImmature Granulocytes Abs Auto0.020.00-0.03 10 3/uLPerforming Lab:see noteML - [facility] LBPROF CHEM 8 (BAS METB) Reviewed date:10/17/2024 01:08:03 PM Interpretation: Performing Lab: Notes/Report: [facility] ,Uvpmqr306560-795 mmol/LPotassium3.83.5-5.1 mmol/LSaboatrq81562-079 mmol/LCarbon Cxddjoh81.421.0-32.0 mmol/LAnion Gap11.0Jzcvswl21125-659 mg/dLBlood Urea Gfcfdwah56.07.0-18.0 mg/dLCreatinine1.800.55-1.02 mg/dLEstimated GFR ( Udfusmd01>=60 mL/min/1.73m 2Estimated GFR (Non- Ame29>=60 mL/min/1.73m 2 BUN Creatinine Ratio35.1Hsnoowo1.28.5-10.1 mg/dLPerforming Lab:see noteML - [facility] LBPROF 14(COMP METB) Reviewed date:10/22/2024 03:59:28 PM Interpretation: Performing Lab: Notes/Report: [facility] ,Vfwzzn943880-067 mmol/LPotassium4.63.5-5.1 mmol/EQnogdvck2827-906 mmol/LCarbon Qkjoubw60.621.0-32.0 mmol/LAnion Gap13.1Sthngpv6720-883 mg/dLBlood Urea Nitrogen 63.07.0-18.0 mg/dLCreatinine1.830.55-1.02 mg/dLEstimated GFR ( Cbzipca35 >=60 mL/min/1.73m 2Estimated GFR (Non- Ame28>=60 mL/min/1.73m 2BUN Creatinine Ratio34.5Ciutzzx3.38.5-10.1 mg/dLBilirubin Total0.20.2-1.0 mg/dL Aspartate Amino Bwonokdcnca2776-34 U/LAlanine Vpaiekejhvqsmsyp9997-34 U/L Alkaline Xgubtfdosnl17600-728 U/LTotal Protein7.36.4-8.2 g/dLAlbumin Level3.6 3.4-5.0 g/dLGlobulin3.7Albumin Globulin Ratio1.0Performing Lab:see noteML - [facility] LBOsmolality Reviewed date:10/24/2024 12:21:56 PM Interpretation: Performing Lab: Notes/Report: [facility] ,Ouqfomvaal502505-292 mOsmol/kg Performed at: - [facility] [id number] [employer] Advisory Team Watch Officer: Nicolas Arenas MD, Phone: [phone] Performing Lab:see note - [facility] LBCBC AUTO DIFF Reviewed date:11/12/2024 08:06:12 PM Interpretation: Performing Lab: Notes/Report: [facility] ,White Blood Count5.24.0-11.0 10 3/uLRed Blood Count3.334.20-5.40 10 6/uL Bmxryhphbd32.312.0-16.0 g/kCRdmgfikfxl27.836.0-48.0 %Mean Corpuscular Ppaaro56.5 81.0-99.0 fLMean Corpuscular Trhvfyxknh44.926.7-34.0 pgMean Corpuscular HGB Conc 32.429.9-35.2 g/dLRed Cell Distribution Width13.411.0-15.0 %Platelet Xhwmk503 150-450 10 3/uLMean Platelet Volume9.29.5-13.5 fLNeutrophils Percent Auto63.5 43.0-75.0 %Lymphocytes Percent Auto24.220.5-60.0 %Monocytes Percent Auto8.61.7- 12.0 %Eosinophils Percent Auto2.70.9-7.0 %Basophils Percent Auto0.60.2-2.0 % Immature Granulocytes Pct Auto0.40.0-0.5 %Neutrophils Absolute Auto3.31.4-6.5 10 3/uLLymphocytes Absolute Auto1.31.2-3.8 10 3/uLMonocytes Absolute Auto0.50.3-0.8 10 3/uLEosinophils Absolute Auto0.10.0-0.7 10 3/uLBasophils Absolute Auto0.00.0- 0.1 10 3/uLImmature Granulocytes Abs Auto0.020.00-0.03 10 3/uLPerforming Lab:see noteML - [facility] LBCBC AUTO DIFF Reviewed date:11/26/2024 04:03:27 PM Interpretation: Performing Lab: Notes/Report: [facility] ,White Blood Count7.44.0-11.0 10 3/uLRed Blood Count3.174.20-5.40 10 6/uL Hemoglobin9.712.0-16.0 g/tOExgwsdjokf70.636.0-48.0 %Mean Corpuscular Mdqkjr29.5 81.0-99.0 fLMean Corpuscular Jqrcoahbhz42.626.7-34.0 pgMean Corpuscular HGB Conc 31.729.9-35.2 g/dLRed Cell Distribution Width13.511.0-15.0 %Platelet Dbojh995 150-450 10 3/uLMean Platelet Volume8.89.5-13.5 fLNeutrophils Percent Auto73.3 43.0-75.0 %Lymphocytes Percent Auto14.020.5-60.0 %Monocytes Percent Auto10.71.7- 12.0 %Eosinophils Percent Auto1.10.9-7.0 %Basophils Percent Auto0.40.2-2.0 % Immature Granulocytes Pct Auto0.50.0-0.5 %Neutrophils Absolute Auto5.41.4-6.5 10 3/uLLymphocytes Absolute Auto1.01.2-3.8 10 3/uLMonocytes Absolute Auto0.80.3-0.8 10 3/uLEosinophils Absolute Auto0.10.0-0.7 10 3/uLBasophils Absolute Auto0.00.0- 0.1 10 3/uLImmature Granulocytes Abs Auto0.040.00-0.03 10 3/uLPerforming Lab:[facility] LBPROF 14(COMP METB) Reviewed date:11/26/2024 04:03:27 PM Interpretation: Performing Lab: Notes/Report: [facility] ,Zqkicj998524-219 mmol/LPotassium4.83.5-5.1 mmol/FWcsftnpl6468-577 mmol/LCarbon Mouspjz49.721.0-32.0 mmol/LAnion Gap17.6Bxfkvjb8176-057 mg/dLBlood Urea Nitrogen 101.07.0-18.0 mg/dLRESULTS CALLED TO JEREL ALVES RN at 9404Eqnwihkxss8.700.55- 1.02 mg/dLEstimated GFR ( Djocmtp13>=60 mL/min/1.73m 2Estimated GFR (Non- Ame18>=60 mL/min/1.73m 2BUN Creatinine Ratio37.3Uktxoja4.48.5-10.1 mg/dL Bilirubin Total0.20.2-1.0 mg/dLAspartate Amino Hsvkadwdman8358-18 U/LAlanine Tmhbwfieetnruvzw0923-35 U/LAlkaline Vsflevaqcez81881-849 U/LTotal Protein6.96.4- 8.2 g/dLAlbumin Level3.13.4-5.0 g/dLGlobulin3.8Albumin Globulin Ratio0.8 Performing Lab:see note - [facility] LBOsmolality Reviewed date:11/30/2024 05:03:08 PM Interpretation: Performing Lab: Notes/Report: [facility] ,Jmwgdutpsw436056-320 mOsmol/kg Performed at: - [address] [id number] [employer] Advisory Team Watch Officer: Nicolas Arenas MD, Phone: [phone] Performing Lab:see note - [facility] LBCBC AUTO DIFF Reviewed date:12/10/2024 12:40:51 PM Interpretation: Performing Lab: Notes/Report: [facility] ,White Blood Count5.34.0-11.0 10 3/uLRed Blood Count3.764.20-5.40 10 6/uL Gdjxlctynx77.612.0-16.0 g/nFAwkzbtgogj60.236.0-48.0 %Mean Corpuscular Gvsrxd10.3 81.0-99.0 fLMean Corpuscular Wnivksiijp49.926.7-34.0 pgMean Corpuscular HGB Conc 32.029.9-35.2 g/dLRed Cell Distribution Width13.711.0-15.0 %Platelet Jijhf680 150-450 10 3/uLMean Platelet Volume9.19.5-13.5 fLNeutrophils Percent Auto60.4 43.0-75.0 %Lymphocytes Percent Auto26.520.5-60.0 %Monocytes Percent Auto9.51.7- 12.0 %Eosinophils Percent Auto2.60.9-7.0 %Basophils Percent Auto0.40.2-2.0 % Immature Granulocytes Pct Auto0.60.0-0.5 %Neutrophils Absolute Auto3.21.4-6.5 10 3/uLLymphocytes Absolute Auto1.41.2-3.8 10 3/uLMonocytes Absolute Auto0.50.3-0.8 10 3/uLEosinophils Absolute Auto0.10.0-0.7 10 3/uLBasophils Absolute Auto0.00.0- 0.1 10 3/uLImmature Granulocytes Abs Auto0.030.00-0.03 10 3/uLPerforming Lab:see noteML - [facility] LBPROF 14(COMP METB) Reviewed date:12/10/2024 12:40:51 PM Interpretation: Performing Lab: Notes/Report: [facility] ,Vaprwq540709-762 mmol/LPotassium4.23.5-5.1 mmol/QMwtlncfy7541-283 mmol/LCarbon Ppvmvrn23.721.0-32.0 mmol/LAnion Gap9.1Iiqvsdu2011-415 mg/dLBlood Urea Nitrogen 63.07.0-18.0 mg/dLCreatinine1.770.55-1.02 mg/dLEstimated GFR ( Rfkdhzq08 >=60 mL/min/1.73m 2Estimated GFR (Non- Ame29>=60 mL/min/1.73m 2BUN Creatinine Ratio35.5Gqhjdcp9.18.5-10.1 mg/dLBilirubin Total0.20.2-1.0 mg/dL Aspartate Amino Rzfimomtljl6213-56 U/LAlanine Wmttllwovscmtmiz1981-08 U/L Alkaline Axodfrxsccm96598-658 U/LTotal Protein7.06.4-8.2 g/dLAlbumin Level3.0 3.4-5.0 g/dLGlobulin4.0Albumin Globulin Ratio0.8Performing Lab:see noteML - [facility] LBOsmolality Reviewed date:12/12/2024 09:19:03 AM Interpretation: Performing Lab: Notes/Report: [facility] ,Lsuitroduw213208-767 mOsmol/kg Performed at: - [facility] [address] [id number] [employer] Advisory Team Watch Officer: Nicolas Arenas MD, Phone: [phone] Performing Lab:see note - [facility] LBPROF 14(COMP METB) Reviewed date:01/02/2025 06:15:12 PM Interpretation: Performing Lab: Notes/Report: [facility] ,Sqikft411792-050 mmol/LPotassium4.03.5-5.1 mmol/CAmpjgwac2111-661 mmol/LCarbon Flfzlfa83.421.0-32.0 mmol/LAnion Gap11.9Iojozhe9935-129 mg/dLBlood Urea Nitrogen 96.07.0-18.0 mg/dLRESULTS CALLED TO GENE HORNER, RNCreatinine2.130.55-1.02 mg/dL Estimated GFR ( Khnwvvk25>=60 mL/min/1.73m 2Estimated GFR (Non- Ame23>=60 mL/min/1.73m 2BUN Creatinine Ratio45.5Knxusvz5.98.5-10.1 mg/dL Bilirubin Total0.30.2-1.0 mg/dLAspartate Amino Uwosnxpeced8425-98 U/LAlanine Fbgxlayugdzzcxfx2902-65 U/LAlkaline Cnzkjxykzui61801-882 U/LTotal Protein6.86.4- 8.2 g/dLAlbumin Level3.13.4-5.0 g/dLGlobulin3.7Albumin Globulin Ratio0.8 Performing Lab:see note[facility] LBOsmolality Reviewed date:01/02/2025 06:15:12 PM Interpretation: Performing Lab: Notes/Report: [facility] ,Fqbdohyzte824545-918 mOsmol/kg Performed at: [address] [id number] [employer] Advisory Team Watch Officer: Nicolas Arenas MD, Phone: [phone] [facility]forming [facility] LBVITAMIN D 25 [place] Reviewed date:01/02/2025 06:15:12 PM Interpretation: Performing Lab: Notes/Report: [facility] ,Vitamin D69.4 <20 ng/mL Vit D deficient 20-<30 ng/mL Vit D insufficient 30-100 ng/mL Vit D sufficient >100 ng/mL Potential Toxicity Performing Lab:see noteOhio[facility] LBPTH, Intact Reviewed date:01/03/2025 12:58:41 PM Interpretation: Performing Lab: Notes/Report: [facility] ,PTH, Vyglqm1061-50 pg/mL Performed at: [address] [id number] [employer] Advisory Team Watch Officer: Josué Crouch PhD, Phone: [phone] Performing Lab:[facility] LBCBC AUTO DIFF Reviewed date:01/21/2025 02:22:57 PM Interpretation: Performing Lab: Notes/Report: [facility] ,White Blood Count4.34.0-11.0 10 3/uLRed Blood Count3.334.20-5.40 10 6/uL Hemoglobin9.912.0-16.0 g/zUFpkjgqndur23.936.0-48.0 %Mean Corpuscular Uxrhps56.8 81.0-99.0 fLMean Corpuscular Iosfoaxdtw81.726.7-34.0 pgMean Corpuscular HGB Conc 30.129.9-35.2 g/dLRed Cell Distribution Width13.711.0-15.0 %Platelet Zdqtn412 150-450 10 3/uLMean Platelet Volume8.99.5-13.5 fLNeutrophils Percent Auto58.9 43.0-75.0 %Lymphocytes Percent Auto29.320.5-60.0 %Monocytes Percent Auto7.91.7- 12.0 %Eosinophils Percent Auto3.50.9-7.0 %Basophils Percent Auto0.20.2-2.0 % Immature Granulocytes Pct Auto0.20.0-0.5 %Neutrophils Absolute Auto2.61.4-6.5 10 3/uLLymphocytes Absolute Auto1.31.2-3.8 10 3/uLMonocytes Absolute Auto0.30.3-0.8 10 3/uLEosinophils Absolute Auto0.20.0-0.7 10 3/uLBasophils Absolute Auto0.00.0- 0.1 10 3/uLImmature Granulocytes Abs Auto0.010.00-0.03 10 3/uLPerforming Lab:see noteML - [facility] LBPROF 14(COMP METB) Reviewed date:01/21/2025 02:22:57 PM Interpretation: Performing Lab: Notes/Report: [facility] ,Lltqhe796314-480 mmol/LPotassium5.33.5-5.1 mmol/HCzphfsck32921-062 mmol/LCarbon Qqxuyxg25.521.0-32.0 mmol/LAnion Gap12.2Wozjlen23559-230 mg/dLBlood Urea Cyhqvgfu25.07.0-18.0 mg/dLCreatinine1.520.55-1.02 mg/dLEstimated GFR ( Ddxhuqc03>=60 mL/min/1.73m 2Estimated GFR (Non- Ame35>=60 mL/min/1.73m 2 BUN Creatinine Ratio19.2Gdiztke5.58.5-10.1 mg/dLBilirubin Total0.20.2-1.0 mg/dL Aspartate Amino Gcaliywkaqb6774-48 U/LAlanine Qvybadalmvvqowqn9924-35 U/L Alkaline Hcllphkwrrw18878-792 U/LTotal Protein6.36.4-8.2 g/dLAlbumin Level2.9 3.4-5.0 g/dLGlobulin3.4Albumin Globulin Ratio0.9Performing Lab:see noteOhio[facility] LBOsmolality Reviewed date:01/26/2025 07:39:37 PM Interpretation: Performing Lab: Notes/Report: [facility] ,Tvhlqfkvkm812705-112 mOsmol/kg Performed at: [address] [id number] [employer] Advisory Team Watch Officer: Nicolas Arenas MD, Phone: [phone] Performing Lab:[facility] LBOsmolality Reviewed date:02/07/2025 08:30:33 AM Interpretation: Performing Lab: Notes/Report: [facility] ,Pwtpfdvzkc361482-649 mOsmol/kg Performed at: [address] [id number] [employer] Advisory Team Watch Officer: Nicolas Arenas MD, Phone: [phone] Performing Lab:see [facility] LBCBC AUTO DIFF Reviewed date:03/11/2025 02:38:46 PM Interpretation: Performing Lab: Notes/Report: [facility] ,White Blood Count7.04.0-11.0 10 3/uLRed Blood Count3.544.20-5.40 10 6/uL Wvmwqywwsz54.812.0-16.0 g/yNMzsqooexbl65.136.0-48.0 %Mean Corpuscular Ljamxu50.3 81.0-99.0 fLMean Corpuscular Zpktmxgnge71.526.7-34.0 pgMean Corpuscular HGB Conc 31.729.9-35.2 g/dLRed Cell Distribution Width15.611.0-15.0 %Platelet Tashk934 150-450 10 3/uLMean Platelet Volume9.69.5-13.5 fLNeutrophils Percent Auto69.1 43.0-75.0 %Lymphocytes Percent Auto22.720.5-60.0 %Monocytes Percent Auto5.91.7- 12.0 %Eosinophils Percent Auto1.60.9-7.0 %Basophils Percent Auto0.60.2-2.0 % Immature Granulocytes Pct Auto0.10.0-0.5 %Neutrophils Absolute Auto4.81.4-6.5 10 3/uLLymphocytes Absolute Auto1.61.2-3.8 10 3/uLMonocytes Absolute Auto0.40.3-0.8 10 3/uLEosinophils Absolute Auto0.10.0-0.7 10 3/uLBasophils Absolute Auto0.00.0- 0.1 10 3/uLImmature Granulocytes Abs Auto0.010.00-0.03 10 3/uLPerforming Lab:see note - [facility] LBPROF 14(COMP METB) Reviewed date:03/11/2025 03:05:23 PM Interpretation: Performing Lab: Notes/Report: [facility] ,Zeyjvs328790-014 mmol/LPotassium5.13.5-5.1 mmol/NAdaptvgv23523-895 mmol/LCarbon Fsgcnol29.721.0-32.0 mmol/LAnion Gap15.9Adkpdsg0536-568 mg/dLBlood Urea Nitrogen 29.07.0-18.0 mg/dLCreatinine1.840.55-1.02 mg/dLEstimated GFR ( Asnmnis59 >=60 mL/min/1.73m 2Estimated GFR (Non- Ame28>=60 mL/min/1.73m 2BUN Creatinine Ratio15.6Lwpsuxb2.18.5-10.1 mg/dLBilirubin Total0.20.2-1.0 mg/dL Aspartate Amino Wyklooommmt1565-94 U/LAlanine Ibieoqiokyegblqw4755-55 U/L Alkaline Hvclaqjmytf97479-338 U/LTotal Protein7.26.4-8.2 g/dLAlbumin Level3.6 3.4-5.0 g/dLGlobulin3.6Albumin Globulin Ratio1.0Performing Lab:see note - [facility] LBOsmolality Reviewed date:03/17/2025 02:33:35 PM Interpretation: Performing Lab: Notes/Report: [facility] ,Ijixktubqr544279-054 mOsmol/kg Performed at: - [facility] [id number] [employer] Advisory Team Watch Officer: Nicolas Arenas MD, Phone: [phone] Performing Lab:see noteLC - [facility] LBCBC AUTO DIFF Reviewed date:03/18/2025 03:01:13 PM Interpretation: Performing Lab: Notes/Report: [facility] ,White Blood Count5.54.0-11.0 10 3/uLRed Blood Count3.544.20-5.40 10 6/uL Motqqbmeze00.712.0-16.0 g/qVXpzmwqjphv43.536.0-48.0 %Mean Corpuscular Vemzug01.5 81.0-99.0 fLMean Corpuscular Lskklsbgwr75.226.7-34.0 pgMean Corpuscular HGB Conc 31.029.9-35.2 g/dLRed Cell Distribution Width15.611.0-15.0 %Platelet Novht807 150-450 10 3/uLMean Platelet Volume9.29.5-13.5 fLNeutrophils Percent Auto62.6 43.0-75.0 %Lymphocytes Percent Auto27.320.5-60.0 %Monocytes Percent Auto7.51.7- 12.0 %Eosinophils Percent Auto2.00.9-7.0 %Basophils Percent Auto0.40.2-2.0 % Immature Granulocytes Pct Auto0.20.0-0.5 %Neutrophils Absolute Auto3.41.4-6.5 10 3/uLLymphocytes Absolute Auto1.51.2-3.8 10 3/uLMonocytes Absolute Auto0.40.3-0.8 10 3/uLEosinophils Absolute Auto0.10.0-0.7 10 3/uLBasophils Absolute Auto0.00.0- 0.1 10 3/uLImmature Granulocytes Abs Auto0.010.00-0.03 10 3/uLPerforming Lab:see noteML - [facility] LBPROF 14(COMP METB) Reviewed date:03/18/2025 03:01:13 PM Interpretation: Performing Lab: Notes/Report: [facility] ,Ufgyfs709587-578 mmol/LPotassium4.83.5-5.1 mmol/SZeqnnhmp49524-368 mmol/LCarbon Womfhut26.721.0-32.0 mmol/LAnion Gap15.1Atiiziv6231-832 mg/dLBlood Urea Nitrogen 32.07.0-18.0 mg/dLCreatinine1.750.55-1.02 mg/dLEstimated GFR ( Mntrhdk42 >=60 mL/min/1.73m 2Estimated GFR (Non- Ame29>=60 mL/min/1.73m 2BUN Creatinine Ratio18.7Ypylbgd6.38.5-10.1 mg/dLBilirubin Total0.20.2-1.0 mg/dL Aspartate Amino Symnnrtsrkr0671-57 U/LAlanine Qzouforjqeirfbpu0339-18 U/L Alkaline Njnpxcqafuy76164-147 U/LTotal Protein7.16.4-8.2 g/dLAlbumin Level4.0 3.4-5.0 g/dLGlobulin3.1Albumin Globulin Ratio1.3Performing Lab:see noteML - [facility] LB lumbar spine wo con Reviewed date:03/18/2025 08:46:45 PM Interpretation: Performing Lab: Notes/Report: Source Facility: [place] [id number] Magnetic Resonance Report Signed Patient: JOSE MOSER MR#: [id number] : 1960 Acct:[id number] Age/Sex: 65 / F ADM Date: 03/18/25 Loc: MRI Attending Dr: Angle Godinez M.D. Ordering Physician: Angle Godinez M.D. Date of Service: 03/18/25 Procedure(s): MR lumbar spine wo con Accession Number(s): [id number] cc: Angle Godinez M.D. [place] [address] Patient Name: JOSE MOSER MRN: [id number] date: 1960 Sex: F Assigned Patient Location: MRI Current Patient Location: MRI Accession/Order Number: [id number] Exam Date: 03/18/2025 13:00 Report Date: 03/18/2025 17:55 At the request of: ANGLE GODINEZ MD Procedure: MR lumbar spine wo con MR lumbar spine wo con 03/18/2025 2:11 PM SIGNS AND SYMPTOMS: Chronic thoracic and lumbar pain radiating into lower extremities with weakness PROTOCOL: Multiplanar multisequence MR images of the lumbar spine without IV contrast COMPARISON: 01/27/2025 FINDINGS: The bones of the lumbar spine are in anatomic alignment. There is preservation of vertebral body heights. There is posterior and intervertebral fusion from L3 through L5. There is a transitional S1 vertebral body segment with a rudimentary S1-S2 intervertebral disc. There is mild disc height loss at L5-S1. There is posterior decompression from L3 through L5. Mild Modic type I endplate edema is noted at L1-L2. The conus terminates at the inferior endplate of the L1 vertebral body level. No epidural or paraspinous fluid collection is appreciated. There is a simple cyst in the right renal cortex requiring no further follow-up. At T12-L1: There is a normal disc, central canal, and neural foramen. At L1-L2: There is a broad-based disc bulge with a right central through foraminal disc protrusion. There is facet hypertrophy and ligamentum flavum thickening. There is mild spinal canal stenosis with moderate right and mild left neural foraminal narrowing. At L2-L3: There is a normal disc, central canal, and neural foramen. At L3-L4: Posterior decompression is noted with posterior and intervertebral fusion. No significant stenosis. At L4-L5: There is posterior decompression with posterior and intervertebral fusion. No significant stenosis. At L5-S1: There is facet hypertrophy left greater than right. There is mild left neural foraminal narrowing without spinal canal narrowing. MR/MR lumbar spine wo con IMPRESSION: At L1-L2: There is a broad-based disc bulge with a right central through foraminal disc protrusion. There is facet hypertrophy and ligamentum flavum thickening. There is mild spinal canal stenosis with moderate right and mild left neural foraminal narrowing. There is posterior and intervertebral fusion from L3 through L5 with posterior decompression. Impression dictated by: Fidel Estrada M.D. 03/18/2025 5:55 PM Dictation Location: [place] [address] Electronically authenticated by: [id number] Y Date: 03/18/2025 17:55 Dictated By: Fidel Estrada M.D. Signed By: 03/18/251757 DD/ 54 TD/TT: Telegraph Messenger:Osmolality Reviewed date:01/11/2025 02:47:53 PM Interpretation: Performing Lab: Notes/Report: [facility] ,Pugoqkgwwr277861-195 mOsmol/kg Performed at: - [facility] [address] [id number] [employer] Advisory Team Watch Officer: Nicolas Arenas MD, Phone: [phone] Performing Lab:see noteLC - [facility] LBPROF 14(COMP METB) Reviewed date:04/23/2025 03:15:14 PM Interpretation: Performing Lab: Notes/Report: [facility] ,Ruxgoh297479-435 mmol/LPotassium5.13.5-5.1 mmol/OZydpnpww70736-155 mmol/LCarbon Jpjopxs22.721.0-32.0 mmol/LAnion Gap14.2Ajbtgfv2489-006 mg/dLBlood Urea Nitrogen 30.07.0-18.0 mg/dLCreatinine2.040.55-1.02 mg/dLEstimated GFR ( Etcpfqo77 >=60 mL/min/1.73m 2Estimated GFR (Non- Ame25>=60 mL/min/1.73m 2BUN Creatinine Ratio14.6Bgwnpey0.48.5-10.1 mg/dLBilirubin Total0.20.2-1.0 mg/dL Aspartate Amino Doonmejdaqg4901-62 U/LAlanine Chminuwxqnfhlcie6401-41 U/L Alkaline Twevihlbzra81297-729 U/LTotal Protein6.86.4-8.2 g/dLAlbumin Level3.2 3.4-5.0 g/dLGlobulin3.6Albumin Globulin Ratio0.9Performing Lab:see noteML - [facility] LB Reason For Referral Reason Needs new shoulder Diagnosis 1 Shoulder impingement (M75.40) Referral Organization [facility] Referring Provider First Name Vinay Referring Provider Last Name Herbert Referring Provider [facility] jagdeep Referred Provider Carlos Butterfield Referred Provider Specialty Orthopedic S urgery Referral Priority Routine Diagnosis 1 Abnormal MRI (R93.89 ) Referral Organization [facility] Referring Provider First Name Vinay Referring Provider Last Name Herbert Referring Provider Speciality Family [facility] jagdeep Referred Provider Robert Farah Referred Provider Specialty Neurosurgery Referral Priority Routine Medications Medication SIG (Take, Route, Frequency, Duration) Notes Start Date End Date Status Cyanocobalamin 1000 MCG/ML 1 mL Injection IM liliana ry month; Duration: 90 days 11/27/2023ctiveOne Touch Ultra Test StripsActiveOne Touch Delica LancetsActive Ondansetron 4 MGDISSOLVE ONE TABLET BY MOUTH EVERY 6 HOURS NEEDED; Duration: 10ActiveButorphanol Tartrate 10 MG/ML1 spray in one nostril Nasally once daily as neededActiveLymphaPressuse daily for Lymphedema; Duration: 90 days10/17/2023 ActiveLiothyronine Sodium 25 MCG1 tablet on an empty stomach Orally Once a day; Duration: 90 days10/11/2023ctiveAzelastine HCl 0.05 %1 drop into affected eye Ophthalmic Twice a day08/28/2023ctiveLinzess 290 MCGTAKE 1 CAPSULE BY MOUTH DAILY; Duration: 90ActiveDiclofenac Sodium 1 %typical dosing 2gm for upper body and 4 grams for lower body...up to QID Externally; Duration: 30 daysActive Desvenlafaxine Succinate ER 50 MG1 tablet Orally Once a day; Duration: 90 days ActiveALPRAZolam 0.5 MGTAKE 1 TABLET BY MOUTH TWICE A DAY NEEDED; Duration: 5ActiveSEROquel 50 MG1 tablet at bedtime Orally Once a day; Duration: 30 daysDr Herbert said this medication is fine to continue- never heard that interaction. Betadine allergy ok with this medActivePrimidone 50 MGTAKE THREE TABLETS BY MOUTH EVERY EVENING; Duration: 30ActivePramipexole Dihydrochloride 1 MGTAKE 1 TABLET BY MOUTH DAILY; Duration: 60PRNActiveAmitriptyline HCl 150 MG TAKE 2 TABLETS BY MOUTH DAILY; Duration: 90ActivehydrOXYzine HCl 25 MG1 tablet as needed Orally qid; Duration: 10 days04/05/2024ctiveoxyCODONE-Acetaminophen 5-325 MG2 tablet Orally every 6 hrs as rwvidj705ActiveEntresto 49-51 MG TAKE 1 TABLET BY MOUTH 2 TIMES A DAY; Duration: 30 daysActiveVitamin D (Ergocalciferol) 58293 UNIT1 capsule Orally once a weekActiveDoxepin HCl 25 MG1- 2 capsule at bedtime Orally Once a day; Duration: 30 days4Active tiZANidine HCl 4 MGTAKE 1 TABLET BY MOUTH TWO TIMES A DAY AND 2 TABLETS AT BEDTIME (MAX DAILY AMOUNT 4 TABLETS); Duration: 30 daysActiveRollator -Size to fit pt - as directed daily; Duration: 365 days5ActiveAspirin 81 MG1 tablet Orally Once a dayActiveIronActivefentaNYL 100 MCG/HR1 patch to skin Transdermal every 72 hours5ActiveLevothyroxine Sodium 100 MCG1 tablet in the morning on an empty stomach Orally Once a day; Duration: 90 daysActive Immunizations Vaccine Route Administration Date Status Comme nts Flu, Flublok (69940) 18yr+, single-dose (5500-8724) Unknown 03/11/2023 Administered Pneumococcal (Pneumovax 23)Lzmtsxv0604/12/2016AdministeredPneumococcal (Prevnar 20)Pakkwfg7108/19/20226550EjltmgiglrmmQIMV-GRA-6 (COVID 19 Moderna - 100mcg/0.5mL) Shqltxh14/04/7172VcdtinitbocyCJHZ-MDA-7 (COVID 19 Moderna - 100mcg/0.5mL)Unknown 3800SmovugptescqVTSN-MRV-3 (COVID 19) bivalent 30 mcg/0.3 ml doseUnknown 04/07/2022dministeredShingrix (Zoster)Vjjebxo3104/07/2022dministeredShingrix (Zoster)Clgpsjg6508/19/2022dministered Social History Tobacco Use: Social History Observation Description Date Details (start date - stop date) Never Smoker NA - NA Tobacco Use/Smoking Question Answer Notes Patient is a nonsmoker Alcohol Screen (Audit-C) Question Answer Notes Did you have a drink containing alcohol in the p ast year? No Sjvlvn8JbjxdhwbfkjygsNovtkmrzOZHWR-K (Standard) Question Answer Notes Did you have a drink containing alcohol in the p ast year? No Dymlaa0SzopchkrtcxxkuPlncghyh Problems Problem Type SNOMED Code ICD Code Onset Dates Problem Status W/U Status Risk Notes Problem Chronic kidney disease (86553488 4) Chronic kidney disease, unspecified (N18.9) ActiveconfirmedProblemBacterial infection (52098151)Other bacterial infections of unspecified site (A49.8)ActiveconfirmedProblemAnemia in chronic kidney disease (516511790)Anemia in chronic kidney disease (D63.1)Activeconfirmed ProblemDehydration (80261002)Dehydration (E86.0)ActiveconfirmedProblemModerate recurrent major depression (64586532)Major depressive disorder, recurrent, moderate (F33.1)ActiveconfirmedProblemEssential tremor (400891806)Essential tremor (G25.0)ActiveconfirmedProblemMigraine without aura, not refractory (disorder) (442647382)Migraine, unspecified, not intractable, without status migrainosus (G43.909)ActiveconfirmedProblemFlaccid hemiplegia of dominant side (881063725)Flaccid hemiplegia affecting right dominant side (G81.01)Active confirmedProblemRheumatic tricuspid insufficiency (95753002)Rheumatic tricuspid insufficiency (I07.1)ActiveconfirmedProblemPeripheral venous insufficiency (10962417)Venous insufficiency (chronic) (peripheral) (I87.2)Activeconfirmed ProblemLymphedema (800345260)Lymphedema, not elsewhere classified (I89.0)Active confirmedProblemSunburn of second degree (591427341)Sunburn of second degree (L55.1)ActiveconfirmedProblemSebaceous cyst (813397082)Sebaceous cyst (L72.3) ActiveconfirmedProblemShortness of breath (636891376)Shortness of breath (R06.02)ActiveconfirmedProblemSprain of shoulder joint (4402957)Other sprain of right shoulder joint, initial encounter (S43.091A)ActiveconfirmedProblemHistory of fall (396791264)History of falling (Z91.81)ActiveconfirmedProblemMorbid obesity (022760245)Morbid obesity (E66.01)ActiveconfirmedProblemCOPD - Chronic obstructive pulmonary disease (20084504)COPD (chronic obstructive pulmonary disease) (J44.9)ActiveconfirmedProblemGastroesophageal reflux disease (872446582)GERD (gastroesophageal reflux disease) (K21.9)ActiveconfirmedProblem Anxiety (01036433)Anxiety (F41.9)ActiveconfirmedProblemNeck pain (21368492)Neck pain (M54.2)ActiveconfirmedProblemEdema (28331688)Edema (R60.9)Activeconfirmed ProblemLymphedema (40917158)Lymphedema (I89.0)ActiveconfirmedProblemChronic kidney disease (694734802)CKD (chronic kidney disease) (N18.9)Activeconfirmed ProblemEssential hypertension (92018573)Benign essential HTN (I10)Active confirmedProblemMitral valve disorder (73230919)Mild mitral regurgitation (I34.0)ActiveconfirmedProblemInsomnia (858708955)Insomnia (G47.00)Active confirmedProblemChronic kidney disease stage 2 (154328436)Chronic kidney disease (CKD) stage G2/A1, mildly decreased glomerular filtration rate (GFR) zhvlabf96- 89 mL/min/1.73 square meter and albuminuria creatinine ratio less than 30 mg/g (N18.2)ActiveconfirmedProblemKnee pain (0672041201)Knee pain (M25.569)Active confirmedProblemHip pain (07158265)Hip pain (M25.559)ActiveconfirmedProblem Hyponatremia (55845204)Hyponatremia (E87.1)ActiveconfirmedProblemSpinal stenosis in cervical region (22502448)Spinal stenosis in cervical region (M48.02)Active confirmedProblemAltered thought processes (77475417)Cognitive changes (R41.89) ActiveconfirmedProblemOsteoarthritis of knee (673683070)Knee osteoarthritis (M17.9)ActiveconfirmedProblemMigraine (41331692)Migraine (G43.909)Active confirmedProblemDegeneration of cervical intervertebral disc (92162582) Degenerative disc disease, cervical (M50.30)ActiveconfirmedProblemTricuspid valve disorder (41218667)Mild tricuspid regurgitation (I07.1)Activeconfirmed ProblemAcute sinusitis (47097565)Acute sinusitis (J01.90)ActiveconfirmedProblem Mild cognitive impairment (506869227)Mild cognitive impairment (G31.84)Active confirmedProblemOsteoporosis (82843521)Osteoporosis (M81.0)Activeconfirmed ProblemAcquired hypothyroidism (362436929)Acquired hypothyroidism (E03.9)Active confirmedProblemPain of left knee region (finding) (704924743551719)Knee pain, left (M25.562)ActiveconfirmedProblemHypoglycemia (765399881)Hypoglycemia (E16.2) ActiveconfirmedProblemAcquired spondylolisthesis (053328734)Lumbar spondylolysis (M43.06)ActiveconfirmedProblemChronic pain (11799181)Chronic pain (G89.29)Active confirmedProblemIron deficiency anemia (69558536)Iron deficiency anemia (D50.9) ActiveconfirmedProblemPain in limb (06968933)Hand pain, left (M79.642)Active confirmedProblemPeripheral venous insufficiency (28320772)Peripheral venous insufficiency (I87.2)ActiveconfirmedProblemAortic cusp regurgitation (824168186) Aortic cusp regurgitation (I35.1)ActiveconfirmedProblemOverweight (083205054) Over weight (E66.3)ActiveconfirmedProblemTear of right rotator cuff (65598576489855013)Right rotator cuff tear (M75.101)ActiveconfirmedProblemIron deficiency anemia (57550059)Anemia, iron deficiency (D50.9)Activeconfirmed ProblemAnemia of chronic disease (502466188)Anemia of chronic disease (D63.8) ActiveconfirmedProblemOtitis media (20281370)Acute otitis media, right (H66.91) ActiveconfirmedProblemFluid overload (62678117)Fluid overload (E87.70)Active confirmedProblemEndogenous obesity (801079163)Endogenous obesity (E66.8)Active confirmedProblemChronic renal failure syndrome (19897607)Chronic kidney insufficiency (N18.9)ActiveconfirmedProblemDyspnea (716882612)Acute dyspnea (R06.00)ActiveconfirmedProblemDouble vision (34064152)Double vision (H53.2) ActiveconfirmedProblemAcute diarrhea (755973277)Acute diarrhea (R19.7)Active confirmedProblemIdiopathic gout (16497424)Acute gouty arthritis (M10.00)Active confirmedProblemThoracic radiculopathy (91643155)Thoracic radiculopathy (M54.14) ActiveconfirmedProblemIron deficiency anemia (86091233)Iron (Fe) deficiency anemia (D50.9)ActiveconfirmedProblemImpingement syndrome of shoulder (482743715) Impingement syndrome of shoulder (M75.40)ActiveconfirmedProblemC2 cervical fracture (S12.100A)ActiveconfirmedProblemHyperparathyroidism due to renal insufficiency (14001455)Hyperparathyroidism due to renal insufficiency (N25.81) ActiveconfirmedProblemEdema (176607816)Bilateral leg edema (R60.0)Active confirmedProblemArthritis of lumbosacral spine (disorder) (839940310)Lumbar and sacral osteoarthritis (M47.817)ActiveconfirmedProblemAbnormal renal function (43241206)Abnormal renal function (N28.9)ActiveconfirmedProblemChronic heart failure (96750618)Chronic heart failure (I50.9)ActiveconfirmedProblemAcute arthritis (46857974)Acute arthritis (M19.90)ActiveconfirmedProblemTunneled central venous catheter in situ (698994662)Port-a-cath in place (Z95.828)Active confirmedProblemAcute congestive heart failure (95895405)Acute CHF (I50.9)Active confirmedProblemLumbosacral radiculopathy (5880460)Left lumbosacral radiculopathy (M54.17)ActiveconfirmedProblemGastroesophageal reflux disease (disorder) (246822418)Chronic GERD (K21.9)ActiveconfirmedProblemCardiomegaly (6018657)Atrial enlargement, left (I51.7)ActiveconfirmedProblemPulmonary valve insufficiency (47872454)Pulmonary valve insufficiency (I37.1)Activeconfirmed ProblemTransient ischemic attack (disorder) (291929929)Brain TIA (G45.9)Active confirmedProblemVitamin D deficiency (79723185)Unspecified vitamin D deficiency (E55.9)ActiveconfirmedProblemEssential hypertension (73781229)BP (high blood pressure) (I10)ActiveconfirmedProblemBad memory (673001787)Bad memory (R41.3) ActiveconfirmedProblemAbnormal swallowing (52270498)Abnormal swallowing (R13.10) ActiveconfirmedProblemChronic kidney disease stage 2 (386784920)Chronic kidney disease (CKD), stage 2 (mild) (N18.2)ActiveconfirmedProblemSimple goiter (575679334)Nontoxic (diffuse) goiter (E04.0)ActiveconfirmedProblemCHF (congestive heart failure), NYHA class I, acute, combined (I50.41)Active confirmedProblemClosed fracture of trochanter of femur (017619246)Closed displaced fracture of greater trochanter of left femur, initial encounter (S72.112A)ActiveconfirmedProblemSpinal stenosis of lumbar region (08086268) Spinal stenosis at L4-L5 level (M48.061)ActiveconfirmedProblemNeurogenic claudication (181790772)Lumbar stenosis with neurogenic claudication (M48.062) ActiveconfirmedProblemClostridium difficile colitis (disorder) (083649253)C. difficile colitis (A04.72)ActiveconfirmedProblemClostridium difficile colitis (787830339)Clostridium difficile colitis (A04.72)ActiveconfirmedProblemPulmonary hypertension (disorder) (86226559)Chronic pulmonary hypertension (I27.20)Active confirmedProblemCervical arthritis (678585561)Cervical arthritis (M47.812)Active confirmedProblemMRI Scan Abnormal (057549973)Abnormal MRI (R93.89)Active confirmedProblemAcute repetitive seizure (746093457601859)Acute repetitive seizure (G40.909)ActiveconfirmedProblemChronic kidney disease stage 3 (disorder) (843728169)Chronic kidney disease, stage 3 unspecified (N18.30)Activeconfirmed ProblemAcute worsening of stage 3 chronic kidney disease (N18.30)Activeconfirmed ProblemHeadache above the eye region (R51.9)ActiveconfirmedProblemDisease caused by Severe acute respiratory syndrome coronavirus 2 (disorder) (371967987)COVID (U07.1)Activeconfirmed Vital Signs Blood pressure diastolic 92 mm Hg 04/02/2025 Tdndzu44 in04/02/2025lood pressure gmlzlbly781 mm Hg04/02/20254705Aqqqar139.8 lbs 04/02/2025BMI33.61 kg/m204/02/2025 Encounters Encounter Location Date Provider Diagnosis [address] [address] 07/31/2024 Vinay Hoy Hand pain, left M79. [address] [address] 11/20/2024 Vinay Hoy Cellulitis L03.90 an d Acute repetitive seizure G40.[address] [address] 08/06/2024 Vinay Hoy Acute CHF I50.9 ; Chronic heart failure I50.9 ; History of falling Z91.81 and Right sided abdominal pain R10.[address] [address] 09/20/2024 Vinay Hoy Edema R60.9 ; Benign essential HTN I10 ; Hyponatremia E87.1 and CHF (congestive heart failure), NYHA class I, acute, combined I50.[address] [address] 11/13/2024 Vinay Hoy Acute repetitive seizure G40.909 ; Major depressive disorder, recurrent, moderate F33.1 and Cellulitis L03.[address] [address] 02/19/2025 Vinay Hoy Acute non-recurrent sinusitis, unspecified location J01.90 and Nasal congestion R09.[address] [place] [address] 03/03/2025 Vinay Hoy Benign essential HTN I10 ; Lumbar and sacral osteoarthritis M47.817 ; Left lumbosacral radiculopathy M54.17 and Thoracic radiculopathy M54.14 [facility] [address] [place] [address] 03/18/2025 Vinay Hoy Insomnia G47.00 and Shoulder impingement M75.40 [facility] [address] [place] [address] 04/02/2025 Vinay Hoy Hip pain M25.559 ; Lumbar and sacral osteoarthritis M47.817 [address]uid overload E87.70 [facility] [address] [place] [address] 11/22/2024 Vinay Hoy Cellulitis L03.90 [facility] [address] [place] [address] 02/18/2025 [facility] [address] [place] [address]/ Ny[facility] Dogsqjvn[address] [place] [address]/poPro[facility] [address]fgtr[address] [place] [address]/poorTri[facility] [address] [place] [address]/poorva [facility] [address]levchne[address] [place] [address]/poorva [facility] [address] [place] [address]/ Ny[facility] [address]igz[address] [place] [address]/poiava [facility] [address] [place] [address]/po[facility] [address] [place] [address]/poiava [facility] [address] [place] [address]/poorva [facility] J[address]qzuot[address] [place] [address]/12/[address] [facility] [address] [place] [address]/poorva [facility] U[address]zn[address] [place] [address]/poorva [facility] [address] [facility] [place] [address]/oug HoyLumbar radiculopathy M54.16[facility] [place] [address]/oug [facility] [facility] [place] [address]/oug [facility] [facility] [place] [address]/oug HoySebaceous cyst L72.3BVEst[facility] [facility] [place] [address]/ Vinay [facility] [facility] [place] [address] 07/02/2024Doug HoyFluid overload E87.70 ; Benign essential HTN I10 and Hyponatremia E87.1[facility] [place] [address]/03/2025Doug HoySebaceous cyst L72.3[facility] [address] [facility] [place] [address]/Doug HoyAnxiety F41.9B[facility] [facility] [place] [address]/ Vinay HoySebaceous cyst L72.3 and Lumbar radiculopathy M54.16[facility] [facility] [place] [address]/Doug [facility] [facility] [place] [address] 08/06/2024Doug HoyBKind[facility] - [facility] [facility] [place] [address]/Doug HoThe [facility] [facility] [place] [address]/Doug HoyC2 cervical fracture S12.100A and Lumbar radiculopathy M54.16[facility] [facility] [place] [address]/05/2025Doug HoyRight sided abdominal pain R10.9BLong[facility] [facility] [place] [address]/Doug [facility] [facility] [place] [address] 09/05/2024Doug [facility] [place] [address]/Doug HoyRight sided abdominal pain R10.9 ; Hand pain, left M79.642 ; Hyperglycemia R73.9 ; Edema R60.9 and Elevated creatine kinase R74.8BLongmont [facility] Hospital[address] [facility] [place] [address] 09/18/2024Doug [facility] [facility] [place] [address]/09/2024Doug [facility] [facility] [place] [address]/03/2025Doug HoyRight sided abdominal pain R10.9BLongmont [facility] Hospital[address] [place] [address]/ Vinay HoyEdema R60.9BVEst[facility] [place] [address]/05/2025Doug HoyRight sided abdominal pain R10.9[facility] [place] [address]/Doug [facility] [place] [address]/08/2024 Vinay HoThe [facility] [place] [address] 12/03/2024Doug HoyRight sided abdominal pain R10.9BLongmont [facility] Hospital[address] [place] [address]/Doug HoyCellulitis L03.90[facility] [place] [address] 12/31/2024Doug HoyRight sided abdominal pain R10.9[facility] [address] [place] [address]/03/2025Doug [facility] [place] [address]/03/2025Doug [facility] [place] [address]/ Vinay HoyLow back pain at multiple sites M54.50[facility] [address] [place] [address]/Doug [facility] [place] [address]/06/2024Doug Hoy Cellulitis L03.90[facility] [place] [address]/09/2024Doug [facility] [facility] [place] [address]/12/2024Doug HoyRight sided abdominal pain R10.9B[place] [address] [place] [address]/ Vinay HoyCellulitis L03.90[place] [address] [place] [address]/Doug HoyBTe[place] [address] [place] [address]/Doug HoyAbnormal MRI R93.89 [place] [address] [place] [address] 03/19/2025Doug HoyInsomnia G47.00[place] [address] [place] [address]/06/2024Doug HoyBVH [facility] [address] [facility] [place] [address]/02/2025Doug HoyBenign essential HTN I10BVH [place] [address] [facility] [place] [address] 04/03/2025Doug HoyBVEstes [facility] [facility] [place] [address]/Doug HoyCellulitis L03.90[place] [address] [facility] [place] [address]/03/2025Doug HoyBenign essential HTN I10 Assessments Encounter Date Diagnosis (ICD Code) Assessment Notes Treatment Notes Treatment Clinical Notes Section Notes 11/20/2024 Cellulitis (ICD-10 - L03.90) 5Acute repetitive seizure (ICD-10 - G40.909)5Cellulitis (ICD- 10 - L03.90)5Acute non-recurrent sinusitis, unspecified location (ICD- 10 - J01.90)Rest and drink more liquids, especially water. You may use a humidifier or vaporizer to help keep the drainage moist. Cavl-mip-lrvlxkh Nasal Saline may help the stuffy and runny nose. Use Ibuprofen and or Tylenol as needed for fever, chills, body aches or pain. Children 5 years old should not be given ufes-tvv-pgkdekj cough and cold medications such as guaifenesin and dextromethorphan. If you're over age 5, you may try xtle-mkc-qvhmtke cold medications such as guaifenesin and dextromethorphan, or multi-symptom cold reliever such as Dayquil to help reduce the symptoms. Antibiotics have been pre scribed. You should take these until completed and follow the directions. Antibiotics can sometimescause upset stomach, and in rare cases, serious allergic reactions or serious gastrointestinal problems. If you start having severe abdominal pain, severe vomiting, or bloody diarrhea, you should be r eevaluated by your physician or urgent care immediately. Follow up with your Primary Care Provider or return to clinic if symptoms do not improve within 3-5 days03/03/2025enign essential HTN (ICD-10 - I10)03/03/2025Lumbar and sacral osteoarthritis (ICD-10 - M47.817)03/18/2025Insomnia (ICD-10 - G47.00)03/18/2025 Shoulder impingement (ICD-10 - M75.40)04/02/2025Hip pain (ICD-10 - M25.559) 04/02/2025Lumbar and sacral osteoarthritis (ICD-10 - M47.817)05/20/2024Lumbar radiculopathy (ICD-10 - M54.16)06/06/2024Sebaceous cyst (ICD-10 - L72.3) 07/02/2024Fluid overload (ICD-10 - E87.70)07/02/2024enign essential HTN (ICD-10 - I10)07/05/2024Sebaceous cyst (ICD-10 - L72.3)07/18/2024nxiety (ICD-10 - F41.9)07/22/2024Sebaceous cyst (ICD-10 - L72.3)08/21/20242 cervical fracture (ICD-10 - S12.100A)10/03/2024Right sided abdominal pain (ICD-10 - R10.9) 10/22/2024Edema (ICD-10 - R60.9)11/04/2024Right sided abdominal pain (ICD-10 - R10.9)12/03/2024Right sided abdominal pain (ICD-10 - R10.9)12/20/2024ellulitis (ICD-10 - L03.90)12/31/2024Right sided abdominal pain (ICD-10 - R10.9)01/20/2025 Low back pain at multiple sites (ICD-10 - M54.50)01/24/2025ellulitis (ICD-10 - L03.90)01/30/2025Right sided abdominal pain (ICD-10 - R10.9)03/11/2025ellulitis (ICD-10 - L03.90)03/18/2025bnormal MRI (ICD-10 - R93.89)03/19/2025Insomnia (ICD-10 - G47.00)04/03/2025enign essential HTN (ICD-10 - I10)04/14/2025 Cellulitis (ICD-10 - L03.90)05/05/2025enign essential HTN (ICD-10 - I10) 09/04/2024Right sided abdominal pain (ICD-10 - R10.9)09/11/2024Right sided abdominal pain (ICD-10 - R10.9)07/31/2024Hand pain, left (ICD-10 - M79.642) 5Acute CHF (ICD-10 - I50.9)08/06/2024hronic heart failure (ICD-10 - I50.9)09/20/2024Edema (ICD-10 - R60.9)09/20/2024enign essential HTN (ICD-10 - I10)5Acute repetitive seizure (ICD-10 - G40.909)11/13/2024Major depressive disorder, recurrent, moderate (ICD-10 - F33.1)11/13/2024ellulitis (ICD-10 - L03.90)09/20/2024Hyponatremia (ICD-10 - E87.1)08/06/2024History of falling (ICD-10 - Z91.81)09/11/2024Hand pain, left (ICD-10 - M79.642)08/21/2024 Lumbar radiculopathy (ICD-10 - M54.16)07/22/2024Lumbar radiculopathy (ICD-10 - M54.16)07/02/2024Hyponatremia (ICD-10 - E87.1)04/02/2025Fluid overload (ICD-10 - E87.70)03/03/2025Left lumbosacral radiculopathy (ICD-10 - M54.17)02/19/2025Nasal congestion (ICD-10 - R09.81)03/03/2025Thoracic radiculopathy (ICD-10 - M54.14) 09/11/2024Hyperglycemia (ICD-10 - R73.9)08/06/2024Right sided abdominal pain (ICD-10 - R10.9)09/20/2024HF (congestive heart failure), NYHA class I, acute, combined (ICD-10 - I50.41)09/11/2024Edema (ICD-10 - R60.9)09/11/2024Elevated creatine kinase (ICD-10 - R74.8)03/03/2025OtherRecommended to rest and use a heating pad [...] 3V 03/22/2023 MRI Arthrogram LT Shoulder 03/15/2024 Insurance Providers Payer Name Payer Address Payer Phone Subscriber Number Group Number Insured Name Patient Relationship to Insured Coverage Start Date Coverage End Date [facility] [employer]IC[employer] [address] [place] [address] [id number] [facility] 2 Jose Moser Self - patient is the insured MEDICAID [place] [address] [place], [place] [id number] [id number], AngelaSelf - patient is the [id number] 2024 Medications Administered Medication Instructions Date of Administration Dosage Notes Ceftriaxone 1 gram gCeftriaxone 1 gram gKenalog-400 mgKenalog-40 mgKenalog-401 qr990Yhmbcdw-4688/27/6196796 mg80 mg wiht 1 cc lidocaineKetorolac Zmvbqiwknywt15/12/202360 mg60 mgKetorolac Tromethamine mgKetorolac Oezvnmxmuird59/12/202360 mg60 mgKetorolac Tromethamine mgKetorolac Gplkzxyeekch55/11/202360 uw99Ojzgfnopp Tromethamine mgKetorolac Gxvcuzndaqvu21/15/202360 mgKetorolac Tromethamine mg30 - yepKetorolac Vkhdhvyxafrr80/03/202430 mgKetorolac Pmrnlfkqlqgl51/23/522178 mgKetorolac Fhjgyvxisjjz27/04/694783 mgKetorolac Zynoaziockvo79/05/060297 mgKetorolac Ddnqjonqsiuc20/15/991558 mgKetorolac Zzxjentgljwe89/16/052961 xm53Smiajxadi Iibhlvzpfove31/29/683871 tz46Kmosytvqk Hytmykdkntpv42/11/490092 ib97Qyanqdyyk Jxrocunuktev55/21/202530 mgKetorolac Jigllxjrqrzb46/28/202530 mgKetorolac Taisfdsbzkgw85/30/202530 mgKetorolac Fmwtwgthntwu93/27/202530 mgLidocaine HCl.1 fUJjcqiut54 mg60 Ondansetron HCl kn85Wsjlwpgjjavc Rliqnwx30 mgOrphenadrine Zyqzjue02 eu08Dxlacnfndnou Zfzlyoh58 mgOrphenadrine Citrate mgOrphenadrine Sisbcja99 qj12Suofforfinng Citrate 0 mgOrphenadrine Rtfkiab69/23/232403 mgOrphenadrine Xouptsa3709/28/2023 60 mgOrphenadrine Hdiqhiu57/05/364467 mgOrphenadrine Rluwwco48/15/729322 mg Orphenadrine Bzcfpee17 xh18Usdglucqtwji Dgyyhpq86/29/417025 mg60 Orphenadrine Lmxssqs70/27/742763 yeVeqafolcx69/01/151086 hcLnmwouqen24/05/828746 uzNsifdsjpg70/23/174144 mgPromethazine 25mg325 mg25 mg IMPromethazine 25mg325 mgPromethazine 25mg5 mgPromethazine 25mg31 mLPromethazine 25mg450 mgPromethazine 25mg525 mgPromethazine, 25 mg wo02Wdkoxwildgzs, 25 mg08/11/914107 lh45Cycayrpqnchn, 25 mg 05/16/31327 lQ15Emvpibvowtty, 25 mg450 vl25Pxhopcjhoyjs, up to 50 mg 450 mgTriamcinolone 40 mg/ml580 mg Medical (General) History Medical History History [...] regurgitation I34.0 epilepsy Surgical History Surgery Date(Month/Year) gallbladder portback surgeryport takrjydfr98/19/2023Right Heart Cath11/30/22cervical one to cervical two fvhjoe1-3-00qhxfeng cuffgastric bypassknee replacementTrigger pain injection to bilat shoulder bladesHospitalization History Reason Date(Month/Year) e colie 01/2023 fluid overload 08/2024 fluid overload 04/18 Fluid Overload 12/2023 fluid overload 10/17
--- OUTSIDE RECORDS SUMMARY | 2025-05-10 16:12 | XMS_ITS | Clinical Summary ---
Author Organization [employer] Address [address] [place] [address] Care Team Providers Care Reflexologist Name Role Phone Yuri Godinez MD Primary Care Provider [phone] Social History Tobacco UseTypesPacks/DayYears UsedDateSmoking Tobacco: Never Assessed CommentsUnknownSex and Gender InformationValueDate RecordedSex Assigned at Not on fileLegal HbtNamwvm80/16/2023 2:43 PM EDTGender IdentityNot on fileSexual OrientationNot on file Plan of Treatment Health MaintenanceDue DateLast DoneCommentsHEPATITIS C VIRUS BRCPOOHHZ1962 [id number] 1962HIV SCREENING WNUIPVYVDE23/31/1977TDAP (ADULT)1981 CERVICAL CANCER SCREENING ZFOGTTUSEK75/31/1983LIPID RKILSZUEP47/31/2002MAMMOGRAM SCREENING ENGJDPVZSD53/31/2002HEP B VACCINE (3 of 3 - 19+ 3-dose series) , 08/01/2006COLORECTAL CANCER SCREENING UBIVMWHCTO07/31/2007 COVID-19 VACCINE ( season)INFLUENZA VACCINE (#1) /10/2021, 04/07/2022, 03/24/2021, Additional history existsRSV VACCINE (1 - 1-dose 75+ series)2037PNEUMOCOCCAL VACCINE SERIESDiscontinued 08/19/2022, 04/12/2016PNEUMOCOCCAL VACCINE ZXXNQLBfineywkm22/24/2023, 04/12/2016 ZOSTER (SHINGLES) VEHZELGYuujqksbl70/24/2023, 04/07/2022 Care Teams Team MemberRelationshipSpecialtyStart DateEnd Yuri Godinez MD PCP - GeneralFamily Medicine12/09/22
--- OUTSIDE RECORDS SUMMARY | 2025-05-10 16:12 | XMS_ITS | Clinical Summary ---
Author Organization [facility] Address [address] [place] [address] Care Team Providers Care Risk Intern Name Role Phone Yuri Godinez MD Primary Care Provider [phone] Allergies Active AllergyReactionsCriticalityNoted DateCommentsAmoxicillin-Pot Clavulanate Unknown,GI intolerance,Diarrhea,Nausea And UpfjlcqoLsh19/19/2014Gabapentin 10/10/20227213UyhrwhYvsuhbp34/04/2023ovidone ZsnedsDhicdrk54/04/2023 Sulfamethoxazole-YzqdebxlszkrQcftslm53/04/2023 Medications MedicationSigDispense QuantityRefillsLast FilledStart DateEnd DateStatus Fluticasone-Salmeterol (Advair Diskus) 500-50 MCG/ACT aerosol powder 1 puff every 12 (twelve) hours.Active fentaNYL (Duragesic) 50 MCG/HR 1 patch to skin TransdermalActive ARIPiprazole (Abilify) 5 MG tablet 1 (one) time each day at the same time.Active atorvastatin (Lipitor) 80 MG tablet 1 (one) time each day at the same time.Active butorphanol (Stadol) 10 MG/ML nasal spray every 8 (eight) hours.Active Cetirizine HCl (ZyrTEC ALLERGY) 10 MG capsule 1 (one) time each day at the same time.Active citalopram (CeleXA) 40 MG tablet 1 (one) time each day at the same time.Active clopidogrel (Plavix) 75 MG tablet TAKE ONE TABLET BY MOUTH DAILY Oral for 30Active lidocaine (Lidoderm) 5 % patch 1 (one) time each day at the same time.Active metoclopramide (Reglan) 5 MG tablet every 6 (six) hours.Active oxyCODONE-acetaminophen (Percocet) 5-325 MG tablet every 6 (six) hours.Active pantoprazole (Protonix) 40 MG packet 1 packet every 12 (twelve) hours.Active primidone (Mysoline) 50 MG tablet 2 Orally hsActive spironolactone (Aldactone) 100 MG tablet every 12 (twelve) hours.Active bumetanide (Bumex) 2 MG tablet 1 (one) time each day at the same time.Active albuterol (2.5 MG/3ML) 0.083% nebulizer solution every 8 (eight) hours.Active ALPRAZolam (Xanax) 0.25 MG tablet (Schedule IV Drug) TAKE 1/2 TO 1 TABLET BY MOUTH 3 TIMES DAILY NEEDED Oral for 3Active Syringe/Needle, Disp, (B-D 3CC LUER-JOSE SYR 25GX1/2 ) 25G X 1-1/2 3 ML misc BD Luer-Jose Syringe 3 mL 25 x 1 1/2 Active Fluticasone Furoate-Vilanterol (BREO ELLIPTA IN) if needed.Active glucose blood (Glucose Meter Test) test strip glucose meter,disposabl,stripsActive Multiple Vitamins-Minerals (MULTIVITAMIN ADULTS PO) multivitaminActive Lancets (OneTouch Delica Plus Ctvufo74F) misc OneTouch Delica Plus Lancet 33 gaugeActive B Complex Vitamins (VITAMIN B COMPLEX PO) Daily.Active albuterol HFA (Ventolin HFA) 90 mcg/act inhaler if needed.Active amitriptyline (Elavil) 150 MG tablet amitriptyline 150 mg tabletActive kkyuimmqla-sumbcwrejreox-gdorpsqx-codeine (Fioricet W/Codeine) 05-157-97-30 MG capsule every 6 (six) hours.Active calcium acetate (Phoslo) 667 MG capsule calcium acetate(phosphate binders) 667 mg jgyicnx7609/29/2022ctive calcium carbonate (Os-Gabriel) 1250 (500 Ca) MG chewable tablet Chew 1 tablet in the morning and 1 tablet at noon and 1 tablet in the evening and 1 tablet before bedtime.Active cholecalciferol (Vitamin D-3) 50 MCG (2000 UT) capsule Take 1.25 Units by mouth.Active cyanocobalamin (Vitamin B-12) 1000 MCG/ML injection 1 mL.Active dicyclomine (Bentyl) 20 MG tablet 4 (four) times a day as needed.Active ferrous sulfate 325 (65 Fe) MG tablet Take 325 mg by mouth in the morning. Take with meals.Active Ferrous Sulfate (IRON PO) Take 1 tablet by mouth in the morning.Active fluconazole (Diflucan) 100 MG tablet fluconazole 100 mg tabletActive hydrALAZINE (Apresoline) 50 MG tablet hydralazine 50 mg tabletActive hydrocortisone 2.5 % cream hydrocortisone 2.5 % topical cream APPLY A THIN LAYER TO THE AFFECTED AREA(S) BY TOPICAL ROUTE 2 TIMES PER DAY Active ipratropium-albuterol (Duo-Neb) 0.5-2.5 mg/3 mL nebulizer solution ipratropium 0.5 mg-albuterol 3 mg (2.5 mg base)/3 mL nebulization solnActive levothyroxine (Synthroid, Levoxyl) 100 MCG tablet levothyroxine 100 mcg tabletActive Linzess 290 MCG capsule Linzess 290 mcg capsuleActive liothyronine (Cytomel) 25 MCG tablet liothyronine 25 mcg tabletActive metoprolol tartrate (Lopressor) 50 MG tablet metoprolol tartrate 50 mg tabletActive ywmoprdw-qvcizglmr-vdtHDAWEhnugg (Maxitrol) 0.1 % ophthalmic suspension kcvfvebb-ejdiujwil-sfccyuvj 3.5 mg/mL-10,000 unit/mL-0.1% eye dropsActive ondansetron ODT (Zofran-ODT) 4 MG disintegrating tablet ondansetron 4 mg disintegrating tabletActive Entresto 97-103 MG tablet Take 1 tablet by mouth in the morning and 1 tablet in the evening.Active tiZANidine (Zanaflex) 4 MG tablet tizanidine 4 mg tabletActive Active Problems ProblemNoted DateDiagnosed DateAbnormal blood whalijqha09/04/2023nxiety 11/27/20221828Rkykianyls25/04/2023erebrovascular accident (CVA)11/27/2022hronic back pain11/27/2022hronic obstructive pulmonary oiqolpf2611/27/2022onstipation 11/27/20229200Ekvfukzeeo34/04/2023ifficulty fjjtlfi0711/27/2022Functional neurologic wucclynqo08/04/2023astroesophageal reflux buyfmqo1811/27/2022Hemiparesis due to old dtyrms1611/27/2022Hemiparesis, left11/27/2022History of total right knee nmsbwyyhaat52/04/4502Gyndofardojxpf31/04/1536Zkgmxkgr18/04/2023Internal derangement of right glsyjhqa79/04/2023Lumbar paraspinal muscle spasm11/27/2022 Lumbar knkxcure00/04/2023Obesity (BMI 30-39.9)11/27/2022Neurogenic pain 11/27/2022Osteoarthritis of spine with radiculopathy, lumbar uomhid2311/27/2022 Pain, lower hllpluuaw38/04/2023Lateral femoral cutaneous neuropathy, left 11/27/2022lantar wart, left foot11/27/20225963Fscwiyqrlvybsp75/04/2023 Polyneuropathy associated with critical edxhklf6811/27/2022Seizure disorder 11/27/2022Spondylosis of lumbosacral cceiuz1511/27/2022Unilateral primary osteoarthritis, right knee11/27/2022 Immunizations ImmunizationAdministration DatesNext DueInfluenza, injectable, quadrivalent, preservative free04/03/2018Pneumococcal Polysaccharide CWJW3414 Family History Medical HistoryRelationNameCommentsDiabetesFatherHeart diseaseFatherHeart failureFatherHypertensionFatherStrokeFatherAnxiety disorderMotherCancerMother DepressionMotherDiabetesMotherHeart diseaseMotherHyperlipidemiaMother HypertensionMotherLung diseaseMotherRelationNameStatusCommentsFatherDeceased MotherAlive Social History Tobacco UseTypesPacks/DayYears UsedDateSmoking Tobacco: Never Assessed CommentsUnknownSex and Gender InformationValueDate RecordedSex Assigned at Not on fileLegal RwjQrsfqo95/15/2023 7:05 PM EDTGender IdentityNot on fileSexual OrientationNot on file Last Filed Vital Signs Vital SignReadingTime TakenCommentsBlood Xyqlpzzn347/7001/ 12:00 PM EST Pulse--Temperature--Respiratory Rate--Oxygen Saturation--Inhaled Oxygen Concentration--Kwomdq79.2 kg (201 lb)12/10/2019 12:00 PM NMLNtrahh954.6 cm (5' 4 )12/10/2019 12:00 PM EDTBody Mass Index34. 12:00 PM EDT Plan of Treatment Not on file Insurance Care Teams Team MemberRelationshipSpecialtyStart Date Yuri Godinez MD PCP - GeneralFamily Medicine11/28/22
--- OUTSIDE RECORDS SUMMARY | 2025-05-10 16:12 | XMS_ITS | Patient Health Record ---
Author Organization [facility] Address [address] [place] [address] Care Team Providers Care Health Inspector Food Name Role Phone Yuri Godinez Primary Care Provider Loi Rodas Unavailable [phone] Allergies Allergen (clinical drug ingredient) Drug/Non Drug Allergy documented on EMR Reaction Allergy Type Onset Date Status amoxicillin / clavulanate Augmentin diarrhea Drug Aller gy Active Reason For Referral No Information Social History Tobacco Use: Social History Observation Description Date Details (start date - stop date) Never Smoker NA - NA AUDIT-C (Standard) Question Answer Notes Did you have a drink containing alcohol in the p ast year? No Pximao1SqvfrvwtrjtogpPfsatqeaYlkhbsc Control (Standard) Question Answer Notes Tobacco use: Nonsmoker Problems Problem Type SNOMED Code ICD Code Onset Dates Problem Status W/U Status Risk Notes Problem Cervical spinal stenosis (11614419) Cervi kale spinal stenosis (M48.02) ActiveconfirmedProblemCervical myelopathy (728273587)Cervical myelopathy (G95.9) ActiveconfirmedProblemOsteoarthritis of knee (350108305)Primary osteoarthritis of left knee (M17.12)ActiveconfirmedProblemLocalized, primary osteoarthritis of the shoulder region (404956240)Primary osteoarthritis, left shoulder (M19.012) ActiveconfirmedProblemUnspecified nondisplaced fracture of second cervical vertebra, initial encounter for closed fracture (S12.101A)ActiveconfirmedProblem Unspecified nondisplaced fracture of second cervical vertebra, subsequent encounter for fracture with routine healing (S12.101D)ActiveconfirmedProblem Sciatica (45679798)Sciatica of left side (M54.32)ActiveconfirmedProblemFall ()Fall, initial encounter (W19.XXXA)ActiveconfirmedProblemNeurogenic claudication (839901529)Lumbar stenosis with neurogenic claudication (M48.062) ActiveconfirmedProblemNontraumatic rupture of muscle or tendon structure of rotator cuff of left shoulder (disorder) (2824552480557435)Tear of left rotator cuff, unspecified tear extent, unspecified whether traumatic (M75.102)Active confirmed Plan Of Treatment Pending Test Test Name Order Date CT Cervical Spine W/O Contrast SCC- KNEE 4 VIEW LEFT-04939 12/18/2023 MRI : Cervical Spine W/O Contrast - 7214 1 10/27/2023 MRI : Cervical Spine W/O Contrast - 7214 1 01/12/2024 Insurance Providers Payer Name Payer Address Payer Phone Subscriber Number Group Number Insured Name Patient Relationship to Insured Coverage Start Date Coverage End Date MEDICARE UHC DUAL COMPLETE [address] [place] [address] [id number] JOSE CLEMENTS Self - [facility] the [facility] MedicaidP [address] [place] [id number] Mar CLEMENTSf - patient is the insured Medical (General) History Medical History History ICD Code High Blood Pressure Heart AttackHeart FailureAsthmaBronchitisThyroid diseaseStomach ulcersGastric RefluxIrritable bowel syndromeStrokeSeizuresKidney failureOsteoporosis OsteoarthritisBleeding DisordersAnemiaBlood Clots in Legs/LungsEndometriosis Ovarian CystsAnxietyDepressionSeen a PsychiatristHealthcare workerDrug Allergies Surgical History Surgery Date(Month/Year) Knee replacement 2017 Back surgery 2022 Rotator cuff surgery 2022 Gastric bypass surgery 1999 Hysterectomy 2005 Cholecystectomy (gallbladder removal) 19 80
--- OUTSIDE RECORDS SUMMARY | 2025-05-10 16:12 | XMS_ITS | Clinical Summary ---
Author Organization [facility] Address [id number] [address] [place] [address] Care Team Providers Care Outside Sales Consultant Name Role Phone Yuri Godinez MD Primary Care Provider [phone] Allergies Active AllergyReactionsCriticalityNoted DateCommentsAmoxicillin-Pot Clavulanate Diarrhea,Abdominal Pain,Nausea And WjdqyqqmErm27/20/2017Povidone-Iodine 08/15/2016 PEELS TOP LAYER OF SKIN Sulfa (Sulfonamide Antibiotics)Tmwkxfje07/20/2017 Medications MedicationSigDispense QuantityRefillsLast FilledStart DateEnd DateStatus butorphanol (STADOL) 10 mg/mL nasal spray Administer 1 spray into each nostril as needed for pain.Active levothyroxine (SYNTHROID) 88 MCG tablet Take 88 mcg by mouth daily.Active tiZANidine (ZANAFLEX) 4 mg tablet Take 4 mg by mouth every 6 (six) hours as needed.Active metoclopramide (REGLAN) 5 mg tablet Take 5 mg by mouth 4 (four) times a day.Active potassium chloride (K-DUR,KLOR-CON) 10 MEQ CR tablet Take 10 mEq by mouth daily.Active ondansetron (ZOFRAN) 4 mg tablet Take 4 mg by mouth every 8 (eight) hours as needed for nausea or vomiting.Active oxyCODONE-acetaminophen (PERCOCET) 5-325 mg per tablet Take 1 tablet by mouth 2 (two) times a day as needed for pain.Active fentaNYL (DURAGESIC) 50 mcg/hr Place 1 patch on the skin every third day.Active b complex vitamins capsule Take 1 capsule by mouth daily.Active hyoscyamine (LEVSIN) 0.125 mg SL tablet Take 0.125 mg by mouth every 4 (four) hours as needed for cramping.Active acetaminophen (TYLENOL) 325 mg tablet Take 650 mg by mouth every 6 (six) hours as needed for pain.Active albuterol (ACCUNEB) 0.63 mg/3 mL nebulizer solution Inhale 1 ampule by nebulization every 6 (six) hours as needed for wheezing. Active alendronate (FOSAMAX) 70 mg tablet Take 70 mg by mouth every 7 days. In a.m. with water on empty stomach, nothing else by mouth and remain upright for 30minActive ALPRAZolam (XANAX) 0.25 mg tablet Take 0.25 mg by mouth 3 (three) times a day as needed for anxiety.Active calcium carbonate-vitamin D3 (OSCAL 500 + D) 500 mg(1,250mg) -200 units per tablet Take 1 tablet by mouth 2 (two) times a day with meals.Active fluticasone-vilanterol (BREO ELLIPTA) 100-25 mcg/dose blister with device Inhale 1 puff daily.Active hydrOXYzine (VISTARIL) 25 mg capsule Take 25 mg by mouth 4 (four) times a day as needed for itching.Active metoprolol tartrate (LOPRESSOR) 50 mg tablet Take 50 mg by mouth 2 (two) times a day.Active mqgkoidw-vrgw-CO-calcium &mins (THERAGRAN-M) 9 mg iron-400 mcg tablet Take 1 tablet by mouth daily.Active rizatriptan PROGRAM MANAGEMENT SPECIALIST (MAXALT-PROGRAM MANAGEMENT SPECIALIST) 10 mg disintegrating tablet Dissolve 10 mg on tongue once as needed for migraine. May repeat in 2 hours if unresolved. Do not exceed 30 mg in 24 hours.Active epoetin tae (EPOGEN,PROCRIT) 10,000 unit/mL injection Inject under the skin every 30 (thirty) days.Active liothyronine (CYTOMEL) 5 MCG tablet Take 5 mcg by mouth daily.Active desvenlafaxine (PRISTIQ) 50 mg 24 hr tablet Take 50 mg by mouth daily.Active levocetirizine (XYZAL) 5 mg tablet Take 5 mg by mouth every evening.Active Active Problems ProblemNoted DateDiagnosed DateStatus post qsjrajhdcjfki48/10/2020Stenosis of cervical spine06/05/2019 Overview (06/05/2019): Added automatically from request for surgery [id number] Tympanic membrane perforation, right07/31/2018Bilateral hearing loss07/31/2018 Arthritis of right knee08/11/2017Spinal stenosis, lumbar region, without neurogenic uqnrnvwuctwu85/20/2017Displacement of lumbar intervertebral disc without puaoknnvme62/20/2017Pain in joint, pelvic region and thigh08/15/2016 Lumbosacral spondylosis without ussbuywkwl78/20/2017Low back pain08/15/2016 Lumbosacral /20/7117Yrzptdikedvj60/20/2017 Family History Medical HistoryRelationNameCommentsDiabetesFatherHeart diseaseFatherCOPDMother CancerMotherDiabetesMotherRelationNameStatusCommentsFatherDeceasedMotherAlive Social History Tobacco UseTypesPacks/DayYears UsedDateSmoking Tobacco: FormerSmokeless Tobacco: NeverAlcohol UseStandard Drinks/WeekCommentsYes0 (1 standard drink = 0.6 oz pure alcohol)very rare; special occasions onlyPHQ-2AnswerDate RecordedTotal Score0 08/28/2019ChildcareAnswerDate ChfzblwmQbzaugydpGgynbtq97/10/2019EmploymentAnswer Date BfsxubxnSalbxmdutiWqsfilq22/10/2019Purpose - LifeAnswerDate RecordedPurpose and direction in rpjyHepuplm91/10/2021CommentsNoSex and Gender InformationValueDate RecordedSex Assigned at BirthNot on fileLegal SexFemale 01/27/2015 11:57 AM EDTGender IdentityNot on fileSexual OrientationNot on file Last Filed Vital Signs Vital SignReadingTime TakenCommentsBlood Yisxdzoi863/8411/27/2019 11:12 AM EDT Ursye477508/01/2019 1:43 PM QYRYsopqbmypua78.5 ??C (97.7 ??F)08/01/2019 11:45 AM ESTRespiratory Gyjl277608/01/2019 12:55 PM ESTOxygen Gxagcrvelm79%08/01/2019 1:43 PM ESTInhaled Oxygen Concentration--Rcxzly62 kg (194 lb)11/27/2019 11:12 AM EDT Pwrpqq355.5 cm (5' 2 )11/27/2019 11:12 AM EDTBody Mass Index35.48011/27/2019 11:12 AM EDT Plan of Treatment Health MaintenanceDue DateLast DoneCommentsDepression Rulqwgmlj30/31/1974Tobacco Uohdarhpm70/31/1974Adult BMI Ozdvrcsro68/31/1980DTaP,Tdap and Td Vaccines (1 - Tdap)1981COVID-19 Vaccine (4 - season), 09/24/2020, 08/27/2020Influenza Kdofezf15/, 05/30/2022, 04/07/2022, Additional history existsRSV ( or age 60+ yrs) (1 - 1-dose 75+ series)2037Zoster (Shingles) GtzewroKyerhwqdy63/24/2023, 04/07/2022 Medical Devices ImplantedTypeAreaManufacturerDevice IdentifierShelf Expiration DateModel / Serial / LotSoft Tissue Device [place]ak 5.2m M - Sna - [id number] Implanted:Qty: 1 on 08/11/2017 [facility] KneeZimmer Dufsmf4706/25/[id number] / NA / [id number] Bn Plc R+Ggnta 40gm Grn Rpl [id number] - Sna - [id number] Implanted:Qty: 1 on 08/11/2017 [facility] KneeZimmer [id number] / NA / [id number] Bn Plc R+Ggnta 40gm Grn Rpl [id number] - Sna - [id number] Implanted:Qty: 1 on 08/11/2017 by [facility] KneeZimmer [id number] / NA / [id number] Bn Plc R+Ggnta 40gm Grn Rpl [id number] - Sna - [id number] Implanted:Qty: 1 on 08/11/2017 by [facility] KneeZimmer [id number]/31/202190-8287-794-01 / NA / [id number] Aldrm Gft 2x4cm 6-12 Ea=1 Sheet=8 Cm2 - [id number] - [id number] Implanted:Qty: 8 on 08/01/2019 by [facility] EarALLERGAN [id number] / [id number] / [id number]:AlloDerm Regenerative Tissue MatrixCmpt Ptlr 32mm Nxgn Alply Rpl [id number] - Sna - [id number] Implanted:Qty: 1 on 08/11/2017 by Patrick Lala MD at [facility] ImplantRight: KneeZimmer Lbiwgq1203/25/202596-4466-602-32 / NA / [id number] Fem E Kn Rt Lpsflx Gndr Rpl [id number] - Sna - [id number] Implanted:Qty: 1 on 08/11/2017 by Patrick Lala MD at [facility] ImplantRight: KneeZimmer [id number] / NA / [id number] Artc 3-4 E-F 12mm Kn Fx Rpl [id number] - Sna - [id number] Implanted:Qty: 1 on 08/11/2017 by Patrick Lala MD at [facility] ImplantRight: KneeZimmer Kywcuq7601/23/[id number] / NA / [id number] Tib [id number] Nxgn Kn Cmnt Rpl [id number] + [id number] - Sna - [id number] Implanted:Qty: 1 on 08/11/2017 by [facility]lateRight: KneeZimmer [id number]/31/2028 16-3619-769-02 / NA / [id number]:indwelling right chest port for ongoing iron infusionsCancellous Screw 4.0 - Sna - [id number] Implanted:Qty: 1 on 08/11/2017 [facility]Right: Gerardo [id number] / NA / NAPortDescription:right chest port for iron infusions Insurance Care Teams Team MemberRelationshipSpecialtyStart Date Yuri Godinez MD [facility]12/06/16
--- NOTE | 2025-05-10 22:49 | ED.GENADUL1 ---
HPI HPI - General Adult General Chief complaint: Fall Stated complaint: FALL Time Seen by Provider: 05/10/25 15:29 Source: patient Mode of arrival: walk-in Limitations: no limitations History of Present Illness HPI narrative: Patient is a 65-year-old female who is presenting to the ER with multiple ongoing chronic complaints. Patient said that she fell 3:00 this morning. She stated that she lost her balance and fell backwards. Patient landed back on her right shoulder. Patient spent 15 minutes talking about all of her ongoing chronic complaints to her shoulders, legs, discussing her chronic pain in the left shoulder and the surgery she has on May 28 for a shoulder replacement. Patient states she is not on blood thinners, she did not hit her head. She has some soreness to the right lateral neck, some soreness to her upper back. Soreness to her bilateral knees and legs. Patient has multiple systemic and ongoing chronic complaints. Patient states to concern was minimal shaking, minimal weakness, and making sure that her shoulders and upper back are okay. No headache or neck pain. Patient's is at bedside. He is a good source of history. Patient has no true acute emergency today, she would like to be evaluated from her fall this morning but she has had several falls in the past and has been seeing multiple specialist and has multiple upcoming test and surgery scheduled. Unless otherwise stated in this report or unable to obtain because of the patient's clinical or mental status as evidenced by medical record, the patient's positive and negative responses for review of systems for constitutional, eyes, ENT, cardiovascular, respiratory, gastrointestinal, neurological, , musculoskeletal, and integument systems and related systems to the presenting problem are either stated in the history of present illness or were not pertinent or were negative for the symptoms and/or complaints related to the presenting medical problem. Nurses note and vital signs reviewed and patient is not hypoxic. is sitting at bedside and does not seem very impressed or concerned about any of patient's concerns during HPI and physical exam. General: The patient appears well and in no apparent distress. Patient is resting comfortably on cart. Patient is not toxic, lethargic, or listless Skin: Warm, dry, no pallor noted. There is no rash noted. No petechiae, purpura. Head: Normocephalic, atraumatic; no midline or paracervical tenderness to palpation. Full range of motion of cervical spine no difficulty. Eye: Normal conjunctiva, no drainage, EOMI. PERRL Ears, Nose, Mouth, and Throat: oral mucosa is moist. Nares patent. Mouth without vesicles. Cardiovascular: Regular Rate and Rhythm, no murmur, gallop, rub Respiratory: Patient is in no distress, no accessory muscle use, lungs are clear to auscultation, no wheezing, rales or rhonchi Back: non-tender, no CVA tenderness bilaterally to percussion. No CT LS midline pain GI: Patient has no midline thoracic lumbar tenderness. Patient has no tenderness over bilateral scapulas. Full range of motion of cervical spine with no difficulty. No tenderness to palpation, no masses appreciated. No rebound, guarding, or rigidity noted. No distention Musculoskeletal: Patient has full range of motion of all of the extremities, no motor, sensory, or focal neurological deficits. Patient has full range of motion of both shoulders with mild to moderate chronic pain, there is no acute signs of fracture or dislocation, no acute injuries. Patient has mild tenderness to palpation of bilateral patella. No swelling, no ecchymosis to bilateral knees. Patient does have flexion extension of both knees with no acute new findings. Full range of motion of bilateral ankles and feet with no acute findings. Neurological: A&O x4, normal speech Psychiatric: Cooperative Related Data Home Medications ?Medication ?Instructions ?Recorded ?Confirmed alprazolam 0.5 mg tablet 0.5 mg PO BID PRN anxiety 12/08/22 04/23/25 amitriptyline 150 mg tablet 300 mg PO BEDTIME 12/08/22 04/23/25 calcium acetate(phosphat bind) 667 667 mg PO BIDWM 12/08/22 04/23/25 mg capsule levothyroxine 100 mcg tablet 100 mcg PO DAILY 12/08/22 04/23/25 linaclotide 290 mcg capsule 290 mcg PO DAILY 12/08/22 04/23/25 (Linzess) oxycodone-acetaminophen 5 mg-325 2 tab PO Q6H PRN pain 12/08/22 04/23/25 mg tablet primidone 50 mg tablet 150 mg PO BEDTIME 12/08/22 04/23/25 tizanidine 4 mg tablet (Zanaflex) 4 mg PO Q6H PRN muscle spasticity 12/08/22 04/23/25 azelastine 0.05 % eye drops 1 drp ophthalmic (eye) DAILY 09/29/23 04/23/25 desvenlafaxine succinate 50 mg 50 mg PO DAILY 09/29/23 04/23/25 tablet,extended release 24 hr doxepin 10 mg capsule 20 mg PO BEDTIME 09/29/23 04/23/25 escitalopram oxalate 20 mg tablet 20 mg PO DAILY 09/29/23 04/23/25 fentanyl 100 mcg/hr transdermal 1 patch transdermal Q72H 10/12/23 04/23/25 patch pramipexole 1 mg tablet 1 mg PO .QHS 10/23/23 04/23/25 sacubitril 49 mg-valsartan 51 mg 1 tab PO BID 01/04/24 04/23/25 tablet (Entresto) apixaban 5 mg tablet (Eliquis) 5 mg PO BID 03/29/24 04/23/25 sevelamer carbonate 800 mg tablet 800 mg PO BID 03/29/24 04/23/25 calcitriol 0.5 mcg capsule 0.5 mcg PO DAILY 10/07/24 04/23/25 torsemide 100 mg tablet 100 mg PO DAILY 10/07/24 04/23/25 maqfnbnvuw-aytvagodzpqux-hitnesup 1 tab PO BID PRN migraine headache 10/15/24 04/23/25 50 mg-325 mg-40 mg tablet liothyronine 25 mcg tablet 25 mcg PO DAILY 10/15/24 04/23/25 Allergies Allergy/AdvReac Type Severity Reaction Status Date / Time povidone-iodine (From Allergy Intermediate Rash Verified 02/10/25 12:00 Betadine) amoxicillin (From Augmentin) AdvReac Mild Vomiting Verified 02/10/25 12:00 clavulanic acid (From AdvReac Mild Vomiting Verified 02/10/25 12:00 Augmentin) Sulfa (Sulfonamide AdvReac Mild Vomiting Verified 02/10/25 12:00 Antibiotics) ciprofloxacin (From Cipro) AdvReac Unknown Vomiting Verified 02/10/25 12:00 Opioid HPI Opioid Management Most Recent Opioid Data: Last Pain Scale 4 Today, 15:14 Last ORT Total Score 2 10/15/24, 18:36 Last ORT Risk Category Low Risk 10/15/24, 18:36 PFSH PFSH Medical History Hyperglycemia ?R73.9 - Hyperglycemia, unspecified (ICD-10) Recurrent UTI ?N39.0 - Urinary tract infection, site not specified (ICD-10) Atelectasis of both lungs ?J98.11 - Atelectasis (ICD-10) C2 cervical fracture ?S12.100A - Unspecified displaced fracture of second cervical vertebra, initial encounter for closed fracture (ICD-10) Shoulder pain, left ?M25.512 - Pain in left shoulder (ICD-10) Pulmonary embolism ?I26.99 - Other pulmonary embolism without acute cor pulmonale (ICD-10) DVT (deep venous thrombosis) ?I82.409 - Acute embolism and thrombosis of unspecified deep veins of unspecified lower extremity (ICD-10) Osteoporosis ?M81.0 - Age-related osteoporosis without current pathological fracture (ICD-10) Seizures ?R56.9 - Unspecified convulsions (ICD-10) IBS (irritable bowel syndrome) ?K58.9 - Irritable bowel syndrome without diarrhea (ICD-10) D-dimer, elevated ?R79.89 - Other specified abnormal findings of blood chemistry (ICD-10) Chronic kidney insufficiency ?N18.9 - Chronic kidney disease, unspecified (ICD-10) Fluid overload ?E87.70 - Fluid overload, unspecified (ICD-10) Lymphedema ?I89.0 - Lymphedema, not elsewhere classified (ICD-10) Volume overload ?E87.70 - Fluid overload, unspecified (ICD-10) Anemia of chronic disease ?D63.8 - Anemia in other chronic diseases classified elsewhere (ICD-10) Chronic kidney disease ?N18.9 - Chronic kidney disease, unspecified (ICD-10) Acute kidney injury ?N17.9 - Acute kidney failure, unspecified (ICD-10) Edema of lower leg due to peripheral venous insufficiency ?I87.2 - Venous insufficiency (chronic) (peripheral) (ICD-10) ?R60.0 - Localized edema (ICD-10) Depression ?F32.A - Depression, unspecified (ICD-10) Gastroenteritis ?K52.9 - Noninfective gastroenteritis and colitis, unspecified (ICD-10) Migraine without aura and without status migrainosus, not intractable ?G43.009 - Migraine without aura, not intractable, without status migrainosus (ICD-10) Chronic heart failure with preserved ejection fraction (HFpEF) ?I50.32 - Chronic diastolic (congestive) heart failure (ICD-10) Chest pain ?R07.9 - Chest pain, unspecified (ICD-10) Dyspnea ?R06.00 - Dyspnea, unspecified (ICD-10) Osteoarthritis ?M19.90 - Unspecified osteoarthritis, unspecified site (ICD-10) Anemia ?D64.9 - Anemia, unspecified (ICD-10) Anxiety ?F41.9 - Anxiety disorder, unspecified (ICD-10) Stroke ?I63.9 - Cerebral infarction, unspecified (ICD-10) Acid reflux ?K21.9 - Gastro-esophageal reflux disease without esophagitis (ICD-10) Hypothyroid ?E03.9 - Hypothyroidism, unspecified (ICD-10) COPD (chronic obstructive pulmonary disease) ?J44.9 - Chronic obstructive pulmonary disease, unspecified (ICD-10) Asthma ?J45.909 - Unspecified asthma, uncomplicated (ICD-10) CHF (congestive heart failure) ?I50.9 - Heart failure, unspecified (ICD-10) Irregular heart beat ?I49.9 - Cardiac arrhythmia, unspecified (ICD-10) HTN (hypertension) ?I10 - Essential (primary) hypertension (ICD-10) Heart attack ?I21.9 - Acute myocardial infarction, unspecified (ICD-10) Lumbar spondylosis ?M47.816 - Spondylosis without myelopathy or radiculopathy, lumbar region (ICD-10) Surgical History H/O cervical spinal arthrodesis ?Z98.1 - Arthrodesis status (ICD-10) Port-A-Cath in place ?Z95.828 - Presence of other vascular implants and grafts (ICD-10) History of lumbar fusion ?Z98.1 - Arthrodesis status (ICD-10) H/O hysterectomy with oophorectomy H/O gastric bypass ?Z98.84 - Bariatric surgery status (ICD-10) History of hernia repair ?Z98.890 - Other specified postprocedural states (ICD-10) ?Z87.19 - Personal history of other diseases of the digestive system (ICD-10) History of rotator cuff surgery ?Z98.890 - Other specified postprocedural states (ICD-10) History of right knee joint replacement ?Z96.651 - Presence of right artificial knee joint (ICD-10) History of appendectomy ?Z90.49 - Acquired absence of other specified parts of digestive tract (ICD-10) Hx of cholecystectomy ?Z90.49 - Acquired absence of other specified parts of digestive tract (ICD-10) Family History Father Family history of CHF (congestive heart failure) Family history of diabetes mellitus Family history of hypertension Family history of myocardial infarction Family history of stroke Mother Family history of CHF (congestive heart failure) Family history of COPD (chronic obstructive pulmonary disease) Family history of diabetes mellitus Family history of hypertension Family history of myocardial infarction Family history of stroke Social History (Updated 09/15/24 @ 22:10 by Rosa Isela Marroquin RN) Within the past year, how often did you have a drink containing alcohol: never Within the past year, how often did you have six or more drinks on one occasion: never Score interpretation: A score less than 3 is consistent with normal alcohol consumption. 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 Highest level of school completed/degree received: some college, no degree Are you now , , , , never or living with a partner: In a typical week, how many times do you talk on the telephone with family, friends, or neighbors: 3 or more times per week How often do you get together with friends or relatives: twice per week How often do you attend christianity or hindu services: 4 or more times per year Do you belong to any clubs or organizations such as christianity groups unions, fraternal or athletic groups, or school groups: no Total score: 3 Score interpretation: A score of greater than or equal to 2 indicates the lowest level of social isolation. Little interest or pleasure in doing things: not at all Feeling down, depressed, or hopeless: not at all Feel stressed/tense/nervous/anxious/difficulty sleeping: to some extent Life stressors: recent of family or friend Do you think of yourself as: straight/heterosexual Gender Identity: female Exam Constitutional Vital Signs, click to edit/add: Last Vital Signs Temp 98.0 F 05/10/25 15:14 Pulse 97 H 05/10/25 15:14 Resp 18 05/10/25 15:14 BP 131/88 05/10/25 15:14 Pulse Ox 98 05/10/25 15:14 O2 Del Method Room Air 05/10/25 15:14 Course Vital Signs Vital signs: Vital Signs Temperature 98.0 F 05/10/25 15:14 Pulse Rate 97 H 05/10/25 15:14 Respiratory Rate 18 05/10/25 15:14 Blood Pressure 131/88 05/10/25 15:14 Pulse Oximetry 98 05/10/25 15:14 Oxygen Delivery Method Room Air 05/10/25 15:14 Temperature 98.0 F 05/10/25 15:14 Pulse Rate 97 H 05/10/25 15:14 Respiratory Rate 18 05/10/25 15:14 Blood Pressure 131/88 05/10/25 15:14 Pulse Oximetry 98 05/10/25 15:14 Oxygen Delivery Method Room Air 05/10/25 15:14 Medical Decision Making MDM Narrative Medical decision making narrative: Patient has no acute indication for any testing. When I ask what he is concerned about today's ER visit of the fall, he mentioned that he is concerned about the recent changes of patient's blood pressure medication and concerned about her side effects of leg swelling from one of the blood pressure medications. He is not concerned about any of her symptoms today but he brought patient to the ER to be safe and to be evaluated because patient wanted to come to the ER. I listen to patient's multiple ongoing chronic complaints for 15 minutes. No acute findings during physical exam. Medical screening evaluation and thorough physical exam was done. Patient agrees there is no acute indication for testing at this time. Education using Tylenol, Motrin and ice were discussed. No acute indication for narcotics. No questions at discharge. Discharge Plan Discharge Chief Complaint: Fall Clinical Impression: Fall, Knee contusion, Contusion of shoulder Patient Disposition: Home, Self-Care Time of Disposition Decision: 16:14 Mode of Transportation: Private Vehicle Prescriptions / Home Meds: No Action desvenlafaxine succinate 50 mg tablet extended release 24 hr 50 mg PO DAILY doxepin 10 mg capsule 20 mg PO BEDTIME escitalopram oxalate 20 mg tablet 20 mg PO DAILY azelastine 0.05 % drops 1 drp OPHTHALMIC (EYE) DAILY fentanyl 100 mcg/hr patch 72 hour 1 patch transdermal Q72H pramipexole 1 mg tablet 1 mg PO .QHS sevelamer carbonate 800 mg tablet 800 mg PO BID Eliquis 5 mg tablet 5 mg PO BID torsemide 100 mg tablet 100 mg PO DAILY calcitriol 0.5 mcg capsule 0.5 mcg PO DAILY alprazolam 0.5 mg tablet 0.5 mg PO BID PRN (Reason: anxiety) amitriptyline 150 mg tablet 300 mg PO BEDTIME calcium acetate(phosphat bind) 667 mg capsule 667 mg PO BIDWM levothyroxine 100 mcg tablet 100 mcg PO DAILY Linzess 290 mcg capsule 290 mcg PO DAILY primidone 50 mg tablet 150 mg PO BEDTIME tizanidine [Zanaflex] 4 mg tablet 4 mg PO Q6H PRN (Reason: muscle spasticity) oxycodone-acetaminophen 5-325 mg tablet 2 tab PO Q6H PRN (Reason: pain) sacubitril-valsartan [Entresto] 49-51 mg tablet 1 tab PO BID gojenzizye-tbcysndbyqkfe-bocl 50-325-40 mg tablet 1 tab PO BID PRN (Reason: migraine headache) liothyronine 25 mcg tablet 25 mcg PO DAILY Print Language: Setswana Instructions: Fall Prevention for Older Adults (ED), Contusion in Adults (ED) Additional Instructions: Ice 20 minutes on, 20 minutes off. Alternate Tylenol and either Motrin, Advil, or ibuprofen every 4 hours to help with pain. Take anti-inflammatories with food or drink to help buffer the stomach. Max dose of Tylenol is 3000 mg a day, max dose of anti-inflammatories of Motrin, Advil, or ibuprofen is 2400 mg a day. Referrals: Yuri Godinez MD [Primary Care Provider, Family Practice] - 1 week Discharge Date/Time: 05/10/25 16:28
== END 2025-05-10 16:28 | disposition home or self-care (01) ==
PROVIDERS: Emergency Provider Emergency Medicine; PCP Family Medicine
DX: S80.02XA Contusion of left knee, initial encounter (principal); S80.01XA Contusion of right knee, initial encounter; S40.012A Contusion of left shoulder, initial encounter; S40.011A Contusion of right shoulder, initial encounter; W18.30XA Fall on same level, unspecified, initial encounter
CPT/HCPCS: 99281

== ENCOUNTER 2025-05-11 00:24 | Inpatient (IN) | payer MEDICARE, MEDICAID, SELFPAY ==
--- OUTSIDE RECORDS SUMMARY | 2023-12-01 05:00 | XMS_ITS ---
Author Organization [facility] Address [address] [place] [address] Care Team Providers Care Ham Stringer Name Role Phone Yuri Godinez Primary Care Provider Therese Diaz Loi Daniel Unavailable [phone] Laurie Shelton Unavailable Allergies Allergen (clinical drug ingredient) Drug/Non Drug Allergy documented on EMR Reaction Allergy Type Onset Date Status amoxicillin / clavulanate Augmentin diarrhea Drug Aller gy Active REASON FOR VISIT MRI review of the Cervical Spine Social History Tobacco Use: Social History Observation Description Date Details (start date - stop date) Never Smoker NA - NA AUDIT-C (Standard) Question Answer Notes Did you have a drink containing alcohol in the p ast year? No [id number]uisrm Control (Standard) Question Answer Notes Tobacco use: Nonsmoker Problems Problem Type SNOMED Code ICD Code Onset Dates Problem Status W/U Status Risk Notes Problem Sciatica (27342178) Sciatica of left side (M54.32) ActiveconfirmedProblemNeurogenic claudication (278763659)Lumbar stenosis with neurogenic claudication (M48.062)ActiveconfirmedProblemOsteoarthritis of knee (276498219)Primary osteoarthritis of left knee (M17.12)Activeconfirmed Encounters Encounter Location Date Provider Diagnosis [address] [place] [address] [place] [address] 12/01/2023 Laurie [facility] Closed nondisplaced fracture of second cervical vertebra with routine healing, unspecified fracture morphology, subsequent encounter S12.101D ; Lumbar stenosis with neurogenic claudication M48.062 ; Sciatica of left side M54.32 and Primary osteoarthritis of left knee M17.12 Assessments Encounter Date Diagnosis (ICD Code) Assessment Notes Treatment Notes Treatment Clinical Notes Section Notes 12/01/2023 Closed nondisplaced fracture of second cervical vertebra with routine healing, unspecified fracture morphology, subsequent encounter (ICD-10 - S12.101D) 1. Chronic C2 odontoid fracture 2. Lumbar stenosis/NC/left sciatica 3. Left knee OA 12/01/2023Lumbar stenosis with neurogenic claudication (ICD-10 - M48.062) 1. Chronic C2 odontoid fracture 2. Lumbar stenosis/NC/left sciatica 3. Left knee OA 12/01/2023Sciatica of left side (ICD-10 - M54.32) 1. Chronic C2 odontoid fracture 2. Lumbar stenosis/NC/left sciatica 3. Left knee OA 12/01/2023rimary osteoarthritis of left knee (ICD-10 - M17.12) 1. Chronic C2 odontoid fracture 2. Lumbar stenosis/NC/left sciatica 3. Left knee OA 12/01/2023Other Patient evaluated and plan established by Dr. Feliciano. At this time, Dr. Feliciano discussed MRI results with the patient. Patient can discontinue use of the Ewing Bristol collar. We will refer her to pain management for an ROBSON for her left leg pain. We will also refer her to Dr. Swan to evaluate her left knee. We will see her back on an as-needed basis. The patient is very much in agreement w ith the treatment and/or diagnostic plan set forth and all questions were answered to the patient'ssatisfaction. Thanks once again. If we can be of further service to your patients with disorders of the spine, cervical, thoracic, or lumbar, please do not hesitate to contact Dr. Feliciano. Best regards, 1. Chronic C2 odontoid fracture 2. Lumbar stenosis/NC/left sciatica 3. Left knee OA Plan Of Treatment Treatment Notes Assessment Notes Other Patient evaluated and plan established by Dr. Feliciano. At this time, Dr. Feliciano discussed MRI results with the patient. Patient can discontinue use of the Ewing [place] collar. We will refer her to pain management for an ROBSON for her left leg pain. We will also refer her to Dr. Swan to evaluate her left knee. We will see her back on an as-needed basis. The patient is very much in agreement with the treatment and/or diagnostic plan set forth and all questions were answered to the patient's satisfaction. Thanks once again. If we can be of further service to your patients with disorders of the spine, cervical, thoracic, or lumbar, please do not hesitate to contact Dr. Feliciano. Best regards, Next Appt Details Follow Up: prn, Reason: Progress Notes * JOSE CLEMENTS ADOB:1959 (65 yo F)Acc No.[id number]:12/01/2023 Patient:?JOSE CLEMENTS :?Laurie Don PADOB:1960???Age:63 Y???Sex:FemaleDate:12/01/2023hone:[phone]:[address] [place], [place] [id number]:Yuri Mukundstefan Subjective: * Chief Complaints: * 1 . MRI review of the Cervical Spine. * HPI: ???General Follow Up Information:? Dictated by Laurie Don PA-C The patient returns to the office 1 month since their last appointment. At that time, they were complaining of neck pain and left upper extremity numbness and tingling to fingers and right upper extremity third/fourth finger will not extend. She had had a CT scan in the ER after a few falls that revealed a C2 fracture. She has been in an Ewing Bristol collar. We set her up with a MRI of the cervical spine. The patient returns to the office today to discuss results. Patient denies bowel or bladderincontinence or urinary retention. * ROS: ???Musculoskeletal:?Admits?Neck Pain.?Genitourinary:?Denies?Incontinence.? * Medical History: H igh Blood Pressure, [...] Allergies: A ugmentin: diarrhea. Objective: * Vitals: * Examination: ???General examination: ???On examination, the patient is well-developed, well-nourished, well-groomed, alert and oriented x3, normal mood. Walks with antalgic gait and uses a walker. She is wearing a Ewing Bristol collar. Midline tender over the cervical spine. 5/5 muscle strength right upper extremity, 4/5 strength left upper extremity. Decreased sensation to the left upper extremity, cannot actively extend right fifth digit. ???X-ray Imaging Studies: ?MRI Imaging Studies: ???MRI cervical spine without contrast reviewed from the [facility] from 11/03/2023; Impression:Mild degenerative changes of the cervical spine in particular at C6- C7. No note of acutefracture of C2. . ??? Assessment: * Assessment: 1.?Closed nondisplaced fracture of second cervical vertebra with routine healing, unspecified fracture morphology, subsequent encounter - S12.101D (Primary)???2.?Lumbar stenosis with neurogenic claudication - M48.062???3.?Sciatica of left side - M54.32 ??4.?Primary osteoarthritis of left knee - M17.12???1. Chronic C2 odontoid fracture 2. Lumbar stenosis/NC/left sciatica 3. Left knee OA. Plan: * Treatment: Notes: Patient evaluated and plan established by Dr. Feliciano. At this time, Dr. Feliciano discussed MRI results with the patient. Patient can discontinue use of the Ewing [place] collar. We will refer her to pain management for an ROBSON for her left leg pain. We will also refer her to Dr. Swan toevaluate her left knee. We will see her back on an as-needed basis. The patient is very much in agreement with the treatment and/or diagnostic plan set forth and all questions were answered to the patient's satisfaction. Thanks once again. If we can be of further service to your patients with disorders of the spine, cervical, thoracic, or lumbar, please do not hesitate to contact Dr. Feliciano. Best regards, ?? * Follow Up: p rn Forms: * Images: * Electronic signature of Laurie Shelton PA-C on 05/11/2025 at 01:21 AM ESTSign off status: Pending * Provider: CAR Driscoll Date: 0 12/01/2023 Generated for Printing/Faxing/eTransmitting on:?05/11/2025 01:21 AM EST History and Physical Notes * HPI (History of Present Illness) CategorySub-CategoryDetailNotesCategory NotesGeneral Follow Up Information Dictated by Laurie Don PA-C The patient returns to the office 1 month since their last appointment. At that time, they were complaining of neck pain and left upper extremity numbness and tingling to fingers and right upper extremity third/fourth finger will not extend. She had had a CT scan in the ER after a few falls that revealed a C2 fracture. She has been in an Ewing Bristol collar. We set her up with a MRI of the cervical spine. The patient returns to the office today to discuss results. Patient denies bowel or bladderincontinence or urinary retention. Examination CategorySub-CategoryDetailNotesCategory NotesGeneral examinationOn examination, the patient is well-developed, well-nourished, well-groomed, alert and oriented x3,normal mood. Walks with antalgic gait and uses a walker. She is wearing a Ewing Bristol collar. Midline tender over the cervical spine. 5/5 muscle strength right upper extremity, 4/5 strength left upper extremity. Decreased sensation to the left upper extremity, cannot actively extend right fifth digit.X-ray Imaging StudiesMRI Imaging Studies MRI cervical spine without contrast reviewed from the [facility] from 11/03/2023; Impression:Mild degenerative changes of the cervical spine in particular at C6- C7. No note of acutefracture of C2.
--- OUTSIDE RECORDS SUMMARY | 2025-02-18 06:00 | XMS_ITS ---
Author Organization The [facility] in [place] Address [address] [place] [address] Care Team Providers Care Colorman Name Role Phone Vinay Godinez Primary Care Provider Ny Rae Unavailable [phone] REASON FOR VISIT MD Encounters Encounter Location Date Provider Diagnosis [facility] Oncology [address] [place] [address] 02/18/2025 Ny Rae Plan Of Treatment No Information Progress Notes * Mabel CLEMENTS ADOB:1959 (65 yo F)Acc No.[id number]:02/18/2025 UNLOCKED PROGRESS NOTE Progress Notes Patient: Bob BURGOS Mabel Ivy :?Ny Rae M.D.:1960???Age:64 Y ???Sex:FemaleDate:02/18/2025Phone:[phone]:[address] [place] [address]Pcp:Vinay Godinez Subjective: * Chief Complaints: * 1 . MD. * Medical History: Objective: * Vitals: Assessment: Plan: * Treatment: * * Electronic signature of Ny Rae MD, [id number] on 05/11/2025 at 01:22 AM ESTSign off status: PendingVisit Status:?CANC (Cancelled) * Provider: Ivy Rae M.D. Date: 0 02/18/2025 Generated for Printing/Faxing/eTransmitting on:?05/11/2025 01:22 AM EST
--- OUTSIDE RECORDS SUMMARY | 2025-02-18 06:15 | XMS_ITS ---
Author Organization The [facility] in [place] Address [address] [place] [address] Care Team Providers Care Store Worker Name Role Phone Vinay Godinez Primary Care Provider Ny Rae Unavailable [phone] REASON FOR VISIT CS Encounters Encounter Location Date Provider Diagnosis The [facility] Oncology [address] [place] [address] 02/18/2025 Ny Rae Plan Of Treatment No Information Progress Notes * Mabel CLEMENTS ADOB:1959 (65 yo F)Acc No.[id number]:02/18/2025 UNLOCKED PROGRESS NOTE Progress Note Patient: Bob LORETTA Mabel Ivy :?Ny Rae M.D.:1960???Age:64 Y ???Sex:FemaleDate:02/18/2025Phone:[phone]:[address] [place] [address]Pcp:Vinay Godinez Subjective: * Chief Complaints: * 1 . CS. * Medical History: Objective: * Vitals: Assessment: Plan: * Treatment: * * Electronic signature of Ny Rae MD, [id number] on 05/11/2025 at 01:22 AM ESTSign off status: PendingVisit Status:?CANC (Cancelled) * Provider: Ivy Rae M.D. Date: 0 02/18/2025 Generated for Printing/Faxing/eTransmitting on:?05/11/2025 01:22 AM EST
--- OUTSIDE RECORDS SUMMARY | 2025-02-18 09:15 | XMS_ITS ---
Author Organization The [facility] in [place] Address [address] [place] [address] Care Team Providers Care Retail Parts Pro Name Role Phone Vinay Godinez Primary Care Provider Ny Rae Unavailable [phone] REASON FOR VISIT MD Encounters Encounter Location Date Provider Diagnosis The [facility] Oncology [address] [place] [address] 02/18/2025 Ny Rae Plan Of Treatment No Information Progress Notes * Mabel CLEMENTS ADOB:1959 (65 yo F)Acc No.[id number]:02/18/2025 UNLOCKED PROGRESS NOTE Progress Notes Patient: Bob BURGOS Mabel Ivy :?Ny Rae M.D.:1960???Age:64 Y ???Sex:FemaleDate:02/18/2025Phone:[phone]:[address] [place] [phone]:Vinay Godinez Subjective: * Chief Complaints: * 1 . MD. * Medical History: Objective: * Vitals: Assessment: Plan: * Treatment: * * Electronic signature of Ny Rae MD, [id number] on 05/11/2025 at 01:20 AM ESTSign off status: PendingVisit Status:?CANC (Cancelled) * Provider: Ivy Rae M.D. Date: 0 02/18/2025 Generated for Printing/Faxing/eTransmitting on:?05/11/2025 01:20 AM EST
--- OUTSIDE RECORDS SUMMARY | 2025-02-18 09:30 | XMS_ITS ---
Author Organization The [facility] in [place] Address [address] [place] [address] Care Team Providers Care Living Advisor Name Role Phone Vinay Godinez Primary Care Provider Ny Rae Unavailable [phone] REASON FOR VISIT CS Encounters Encounter Location Date Provider Diagnosis [facility] Oncology [address] [place] [address] 02/18/2025 Ny Rae Plan Of Treatment No Information Progress Notes * Mabel CLEMENTS ADOB:1959 (65 yo F)Acc No.[id number]:02/18/2025 UNLOCKED PROGRESS NOTE Progress Note Patient: Bob LUCINDAJOMAR Mabel Ivy :?Ny Rae M.D.:1960???Age:64 Y ???Sex:FemaleDate:02/18/2025Phone:[phone]:[address] [place] [phone]:Vinay Godinez Subjective: * Chief Complaints: * 1 . CS. * Medical History: Objective: * Vitals: Assessment: Plan: * Treatment: * * Electronic signature of Ny Rae MD, [id number] on 05/11/2025 at 01:21 AM ESTSign off status: PendingVisit Status:?PEN (Pending) * Provider: Ivy Rae M.D. Date: 0 02/18/2025 Generated for Printing/Faxing/eTransmitting on:?05/11/2025 01:21 AM EST
--- OUTSIDE RECORDS SUMMARY | 2025-03-18 09:45 | XMS_ITS ---
Author Organization The [facility] in [place] Address [address] [place] [address] Care Team Providers Care Top Polisher Name Role Phone Vinay Godinez Primary Care Provider Ny Rae Unavailable [phone] REASON FOR VISIT CS Encounters Encounter Location Date Provider Diagnosis [facility] Oncology [address] [place] [phone] 03/18/2025 Ny Rae Plan Of Treatment No Information Progress Notes * Mabel CLEMENTS ADOB:1959 (65 yo F)Acc No.[id number]:03/18/2025 UNLOCKED PROGRESS NOTE Progress Note Patient: Bob LUCINDAJOMAR Mabel Ivy :?Ny Rae M.D.:1960???Age:65 Y ???Sex:FemaleDate:03/18/2025Phone:[phone]:[address] [place] [phone]:Vinay Godinez Subjective: * Chief Complaints: * 1 . CS. * Medical History: Objective: * Vitals: Assessment: Plan: * Treatment: * * Electronic signature of Ny Rae MD, [id number] on 05/11/2025 at 01:22 AM ESTSign off status: PendingVisit Status:?PEN (Pending) * Provider: Ivy Rae M.D. Date: 0 03/18/2025 Generated for Printing/Faxing/eTransmitting on:?05/11/2025 01:22 AM EST
--- OUTSIDE RECORDS SUMMARY | 2025-04-28 13:15 | XMS_ITS | Encounter Summary ---
Author Organization [facility] Address [address] [place] [address] Care Team Providers Care Whizzer Operator Name Role Phone Yuri Godinez MD Primary Care Provider [phone] Encounter Details DateTypeDepartmentCare Team (Latest Contact Info)Nabgshexxdx80/03/2025 1:15 PM ESTOffice Visit [facility] [place] [address] [place] [address] Mark Hidalgo MD [address] [facility] [place] [address] Preop cardiovascular exam (Primary Dx); Chronic diastolic congestive heart failure (CMS/HCC); Primary hypertension; Pulmonary hypertension (CMS/HCC); Lymphedema; History of DVT of lower extremity Social History Tobacco UseTypesPacks/DayYears UsedDateSmoking Tobacco: NeverSmokeless Tobacco: NeverAlcohol UseStandard Drinks/WeekCommentsNot Currently0 (1 standard drink = 0.6 oz pure alcohol)[facility] UtilitiesAnswerDate RecordedIn the past 12 months has the [employer], gas, oil, or water Zounds Hearing Aids threatened to shut off services in your home?No07/28/2023Humiliation, Afraid, Rape, and Kick questionnaireAnswerDate RecordedWithin the last year, have you been afraid of your partner or ex-partner?No07/28/2023Emotionally AbusedNot on file07/28/2023hysically Abused Not on file07/28/2023Sexually AbusedNot on file07/28/2023Overall Financial Resource Strain (CARDIA)AnswerDate RecordedHow hard is it for you to pay for the very basics like food, housing, medical care, and heating?Not hard at all 07/28/2023HQ-2AnswerDate RecordedPatient Health Questionnaire-2 Score0 01/13/2023UT Safety & EnvironmentAnswerDate RecordedWithin the last year, have you been afraid of your partner or ex-partner?No07/28/2023Emotionally AbusedNot on file07/28/2023hysically AbusedNot on file07/28/2023Sexually AbusedNot on file07/28/2023In the past year have you been physically or sexually abused? Unrecognized value07/28/2023TransportationAnswerDate RecordedIn the past 12 months, has lack of transportation kept you from medical appointments or from getting medications?No07/28/2023Lack of Transportation (Non-Medical)Not on file 07/28/2023Housing Stability Vital SignAnswerDate RecordedUnable to Pay for Housing in the Last YearNot on file07/28/2023Number of Places Lived in the Last YearNot on file07/28/2023In the last 12 months, was there a time when you did not have a steady place to sleep or slept in ashelter (including now)?No 07/28/2023Hunger Vital SignAnswerDate RecordedWithin the past 12 months, you worried that your food would run out before you got the money to buymore.Never true07/28/2023an Out of Food in the Last YearNot on file07/28/2023 CommentsUnknownSex and Gender InformationValueDate RecordedSex Assigned at Ycyasp9612/15/2022 3:22 PM EDTLegal EydTgnxlp16/29/2022 9:25 PM EDTGender Identity Pgjzui6212/15/2022 3:22 PM EDTSexual OrientationHeterosexual or Wcqeulvv42/22/2023 3:22 PM EDTdocumented as of this encounter Last Filed Vital Signs Vital SignReadingTime TakenCommentsBlood Pjicjjfo291/8911 1:35 PM EST Wnacw7381 1:35 PM ESTTemperature--Respiratory Rate--Oxygen Saturation 100%04/28/2025 1:35 PM ESTInhaled Oxygen Concentration--Iekawn22.6 kg (182 lb) 04/28/2025 1:35 PM SKFIxlrof821.5 cm (5' 2 )04/28/2025 1:35 PM ESTBody Mass Index33.29106/28/2024 1:35 PM ESTdocumented in this encounter Functional Status * BPAnswerDate of GcqofmbbdiVwtshk804 1:35 PM Maren Valdes MA * PulseAnswerDate of JphihmyyxgSrtzpf8981/03/2025 1:35 PM Maren Valdes MA * Patient PositionAnswerDate of TojgpznxbwNekgivLouznui78/03/2025 1:35 PM Maren Schwarz MA * Are you deaf or do you have serious difficulty hearing?AnswerDate of RipxbqxfroZswcbtQd04/08/2024 11:06 AM Eliz Ramirez RN * Are you blind or do you have serious difficulty seeing, even when wearing glasses?AnswerDate of BetsmelzeuLxuwpxBq00/08/2024 11:06 AM Eliz Ramirez RN * Do you have serious difficulty walking or climbing stairs?AnswerDate of ZdlexhhmblWzmtxbGm56/08/2024 11:06 AM Eliz Ramirez RN * Do you have serious difficulty dressing or bathing?AnswerDate of Assessment XxxxaqFh32/08/2024 11:06 AM Eliz Ramirez RN * Because of a physical, mental, or emotional condition, do you have serious difficulty doing errandsalone such as visiting the doctor?AnswerDate of HhrqozlfguDgduhzWr69/08/2024 11:06 AM Eliz Ramirez RN * BPAnswerDate of JcoiecrkdyApfizs367 1:35 PM Maren Valdes MA * PulseAnswerDate of GrodwxzvrpYpeidm0054/03/2025 1:35 PM Maren Valdes MA * WuL7OmiqbaXqaj of FolkmkwdnxSencpa59463/03/2025 1:35 PM Maren Valdes MA * BP LocationAnswerDate of AssessmentAuthorRight arm04/28/2025 1:35 PM Maren Schwarz MA * Patient PositionAnswerDate of GtknfzierdZsfewzZdlfyen07/03/2025 1:35 PM Maren Schwarz MA documented as of this encounter Mental Status * Because of a physical, mental, or emotional condition, do you have serious difficulty concentrating, remembering, or making decisions? (5 years old or older)AnswerEntry SsdwQdzptyPc09/08/2024 11:06 AM Eliz Ramirez RN documented in this encounter Progress Notes * Mark Hidalgo MD - 04/28/2025 1:15 PM EST Images from the original note were not included. [facility] Subjective Mabel Moser is a 65 y.o. year old female patient being seen for 6 month follow up. Patient states she is having Left shoulder replacement surgery at [facility] May 28. Dr. Butterfield Patient states she has had an increase in fatigue and brain fog, SOB/JO, palpitation/racing heart Patient denies chest pain, leg swelling Patient Active Problem List Diagnosis Abnormal weight [...] post tympanoplasty Sprain of shoulder Seizure disorder ([facility]/HCC) Polyneuropathy associated with critical illness Polyneuropathy Arthritis Class 3 obesity (CMS/HCC) Lumbar paraspinal muscle spasm Lateral femoral cutaneous neuropathy, left Internal derangement of right shoulder History of total right knee replacement Hemiparesis, left (CMS/HCC) Hemiparesis due to old stroke (CMS/HCC) Difficulty walking Depressive disorder Constipation Abnormal blood chemistry 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 ([facility]/HCC) Pre-operative cardiovascular examination Acute on chronic systolic CHF (congestive heart failure) ([facility]) History of stroke Hyperkalemia Hypomagnesemia Metabolic acidosis LEEANN (acute kidney injury) Peripheral vascular disease Acute heart failure ([facility]) Polypharmacy Cerebral artery occlusion with cerebral infarction ([facility]/HCC) Chronic congestive heart failure ([facility]) Fall at home, initial encounter Irritable bowel [...] Vertebral artery dissection Abdominal wall skin ulcer Hyperparathyroidism Primary localized osteoarthrosis of shoulder region Tear of left rotator cuff S/P reverse total shoulder arthroplasty, left Biceps tendinosis of left shoulder Chronic kidney disease, stage 3b ([facility]) Fall Family History Problem Relation Name Age of Onset Stroke Mother Heart failure Father Social History Tobacco Use Smoking status: Never Smokeless tobacco: Never Substance Use Topics Alcohol use: Not Currently Drug use: Not Currently HPI Mabel is seen in follow-up. She is a 65-year-old woman with prior history of obesity status post bariatric surgery in 2000. In the past she was admitted to [facility] in 2019 with fluid overload and responded to diuresis. Prior evaluation included cardiac catheterization in 2016 that showed mild coronary artery diseasewith mildly elevated right-sided pressures and wedge pressure. She had normal ventricular function by echocardiography. Pulmonary VQ scan was negative for pulmonary embolism. She has history of DVT on Eliquis therapy. She has chronic diastolic heart failure. She has was seen in our office on 10/28/2022 and she was having headache and echocardiogram had shownseverely elevated right-sided pressures and her blood work [...] as needed to maintain stable weight. She was admitted on 12/25/2023 and then on 02/28/2024 to the [facility] with worsening lower extremity edema and weight gain. Her diuretics therapy was intensified. in December she was found to have left lower extremity DVT and Eliquis was increased to 5 mg twice daily. She has secured lymphedema pumps and has been using them. She feels that there is a good response. She was admitted to the [facility] in March 2024 for weight gain and edema and underwent diuresis with IV Bumex drip. In August 2024 she was admitted to the [facility] with worsening shortness of breath and weight gain of 20 pounds. She underwent ultrasound of lower extremities that were negative for DVT. She was diuresed with IV Bumex drip with a total net -8 L. 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 She also continues to take spironolactone. Today she is seen in follow-up. She needs to undergo shoulder surgery. She needs cardiac evaluationprior to that. She denies chest pain. She has shortness of breath with exertion NYHA class II symptoms. No significant lower extremity edema. She has stopped Crestor due to side effects. She is currently holding Eliquis due to dental surgery. No palpitations. Review of Systems Constitutional: Positive for malaise/fatigue and weight loss. Weight gain: 22# since November 2023. Cardiovascular: Positive for dyspnea on exertion and palpitations. Respiratory: Positive for shortness of breath. Musculoskeletal: Positive for arthritis, back pain, joint pain, muscle weakness and neck pain. Neurological: Positive for headaches, loss of balance and weakness. All other systems reviewed and are negative. Objective Visit Vitals BP (!) 186/89 (BP Location: Right arm, Patient Position: Sitting) Pulse 83 Ht 1.575 m (5' 2 ) Wt 82.6 kg (182 lb) SpO2 100% BMI 33.29 kg/m?? Smoking Status Never BSA 1.9 m?? Physical Exam Constitutional: Appearance: She is well-developed. She is obese. She is not ill-appearing. HENT: Head: Normocephalic and atraumatic. Nose: Nose normal. Eyes: General: No scleral icterus. Pupils: Pupils are equal, round, and reactive to light. Neck: Thyroid: No thyromegaly. Vascular: No JVD. Comments: neck in brace Cardiovascular: Rate and Rhythm: Normal rate and regular rhythm. Pulses: Radial pulses are 2+ on the right side and 2+ on the left side. Heart sounds: Murmur heard. Systolic (LLSB) murmur is present with a grade of 1/6. No friction rub. No gallop. Pulmonary: Effort: Pulmonary effort is normal. No respiratory distress. Breath sounds: Normal breath sounds. No wheezing or rales. Chest: Chest wall: No tenderness. Abdominal: General: Bowel sounds are normal. There is no distension. Palpations: Abdomen is soft. Tenderness: There is no abdominal tenderness. Musculoskeletal: General: No swelling. Cervical back: Neck supple. Right lower le+ Pitting Edema present. Left lower le+ Pitting Edema present. Comments: Uses a walker to assist with ambulation Skin: General: Skin is warm and dry. Neurological: General: No focal deficit present. Mental Status: She is alert and oriented to person, place, and time. Psychiatric: Mood and Affect: Mood normal. Behavior: Behavior is cooperative. Judgment: Judgment normal. Allergies Allergies Allergen Reactions Betadine [Povidone-Iodine] Carvedilol Nausea And Vomiting Cephalexin Other Ciprofloxacin Clavulanic Acid Diarrhea Gabapentin Other Iodine Unknown Pregabalin Other Sulfamethoxazole-Trimethoprim Unknown Trimethoprim Unknown Amoxicillin-Pot Clavulanate Other, Diarrhea, Nausea And Vomiting and GI intolerance Sulfa (Sulfonamide Antibiotics) GI intolerance, Other and Rash Medications Current Outpatient Medications: albuterol 90 mcg/actuation inhaler, Inhale 2 puffs every 6 (six) hours if needed., Disp: , Rfl: ALPRAZolam (Xanax) 0.5 mg tablet, Take 0.5 mg by mouth if needed in the morning and at bedtime for sleep., Disp: , Rfl: amitriptyline (Elavil) 150 mg tablet, Take 300 mg by mouth at bedtime., Disp: , Rfl: butorphanol (Stadol) 10 mg/mL nasal spray, Administer 1 spray into each nostril., Disp: , Rfl: calcitriol (Rocaltrol) 0.5 mcg capsule, Take 0.5 mcg by mouth in the morning., Disp: , Rfl: cyanocobalamin (Vitamin B-12) 1,000 mcg/mL injection, 1 mL Injection IM every month for 90 days, Disp: , Rfl: desvenlafaxine (Pristiq) 50 mg 24 hr tablet, Take 100 mg by mouth in the morning., Disp: , Rfl: doxepin (SINEquan) 10 mg capsule, , Disp: , Rfl: DULoxetine (Cymbalta) [address] capsule, Take 60 mg by mouth in the morning and at bedtime., Disp: ,Rfl: Entresto 49-51 mg tablet, Take 1 tablet by mouth two times daily., Disp: , Rfl: ergocalciferol (Vitamin D-2) 1.25 MG (02624 Units) capsule, 1 capsule., Disp: , Rfl: escitalopram (Lexapro) 20 mg tablet, , Disp: , Rfl: fentaNYL (Duragesic) 100 mcg/hr, Place 1 patch on the skin infusion over 72 (seventy-two) hours., Disp: , Rfl: fluticasone furoate-vilanteroL (Breo Ellipta) 100-25 mcg/dose inhaler, 1 puff 1 (one) time each dayat the same time. (Patient taking differently: 1 puff if needed.), Disp: , Rfl: hydrOXYzine HCL (Atarax) 25 mg tablet, , Disp: , Rfl: hyoscyamine 0.125 mg dissolvable tablet, Place 0.125 mg under the tongue., Disp: , Rfl: ipratropium-albuteroL (Duo-Neb) 0.5-2.5 mg/3 mL nebulizer solution, Take 3 mL by nebulization if needed in the morning, at noon, and at bedtime., Disp: , Rfl: levothyroxine (Synthroid, Levoxyl) 100 mcg tablet, Take 100 mcg by mouth in the morning., Disp: , Rfl: linaCLOtide (Linzess) 290 mcg capsule, Take 290 mcg by mouth before breakfast. Every other day, Disp: , Rfl: liothyronine (Cytomel) 25 mcg tablet, Take 25 mcg by mouth in the morning., Disp: , Rfl: loratadine (Claritin) 10 mg tablet, Take 10 mg by mouth in the morning., Disp: , Rfl: nystatin (Mycostatin) 100,000 unit/gram powder, , Disp: , Rfl: ondansetron ODT (Zofran-ODT) 4 mg disintegrating tablet, , Disp: , Rfl: oxyCODONE-acetaminophen (Percocet) 5-325 mg tablet, Take 1-2 tablets by mouth every 6 (six) hours if needed for severe pain (8-10 pain score)., Disp: , Rfl: pantoprazole (ProtoNix) 40 mg EC tablet, 1 (one) time each day at the same time., Disp: , Rfl: primidone (Mysoline) 50 mg tablet, Take 150 mg by mouth at bedtime., Disp: , Rfl: spironolactone (Aldactone) 100 mg tablet, Take 50 mg by mouth two times daily. (Patient taking differently: Take 50 mg by mouth if needed.), Disp: , Rfl: tiZANidine (Zanaflex) 4 mg tablet, , Disp: , Rfl: torsemide (Demadex) 100 mg tablet, Take 50 mg by mouth two times daily., Disp: , Rfl: ARIPiprazole (Abilify) 2 mg tablet, Take 2 mg by mouth in the morning. (Patient not taking: Reported on 04/28/2025), Disp: , Rfl: aspirin 81 mg chewable tablet, Chew 81 mg 1 (one) time. (Patient not taking: Reported on 04/28/2025), Disp: , Rfl: atorvastatin (Lipitor) 40 mg tablet, , Disp: , Rfl: azelastine (Astelin) 137 mcg (0.1 %) nasal spray, Administer 1 spray into each nostril two times daily. Use in each nostril as directed (Patient not taking: Reported on 04/28/2025), Disp: , Rfl: bumetanide (Bumex) 2 mg tablet, Take 1 tablet (2 mg) by mouth in the morning and at bedtime. Take a3rd dose at noon as needed for signs of fluid retention including worsening edema and weight gain (Patient not taking: Reported on 04/28/2025), Disp: 60 tablet, Rfl: 2 byvgozutfb-iboiipdvtjjxt-maqt 50-325-40 mg tablet, Take 1 tablet by mouth. (Patient not taking: Reported on 04/28/2025), Disp: , Rfl: calcium acetate (Phoslo) 667 mg capsule, Take 667 mg by mouth in the morning and at bedtime. (Patient not taking: Reported on 04/28/2025), Disp: , Rfl: carvedilol (Coreg) 6.25 mg tablet, Take 1 tablet (6.25 mg) by mouth with breakfast and with eveningmeal for 195 doses. (Patient not taking: Reported on 04/28/2025), Disp: 60 tablet, Rfl: 0 dilTIAZem CD (Cardizem CD) 120 mg 24 hr capsule, Take 1 capsule (120 mg) by mouth in the morning., Disp: 90 capsule, Rfl: 3 Eliquis 2.5 mg tablet, Take 5 mg by mouth two times daily. (Patient not taking: Reported on 04/28/2025), Disp: , Rfl: gabapentin (Neurontin) 100 mg capsule, Take 100 mg by mouth in the morning, at noon, and at bedtime. (Patient not taking: Reported on 04/28/2025), Disp: , Rfl: pramipexole (Mirapex) 1 mg tablet, 1 (one) time each day at the same time. (Patient not taking: Reported on 04/28/2025), Disp: , Rfl: rosuvastatin (Crestor) 20 mg tablet, Take 20 mg by mouth in the morning. (Patient not taking: Reported on 04/28/2025), Disp: , Rfl: sevelamer carbonate (Renvela) 800 mg tablet, Take 800 mg by mouth with breakfast, with lunch, and with evening meal. Swallow tablet whole; do not crush, break, or chew. (Patient not taking: Reported on 04/28/2025), Disp: , Rfl: Recent Labs Lab Results Component Value Date NA 136 08/03/2023 K 3.9 08/03/2023 CL 96 (L) 08/03/2023 CO2 30 08/03/2023 CO2 28.7 11/22/2022 BUN 94 (H) 08/03/2023 CREATININE 2.67 (H) 08/03/2023 GLUCOSE 78 08/03/2023 GLUCOSE 89 11/22/2022 CALCIUM 8.6 08/03/2023 Lab Results Component Value Date TROPONINI 0.01 08/01/2023 Lab Results Component Value Date WBC 9.90 08/03/2023 HGB 9.4 (L) 08/03/2023 HCT 29.7 (L) 08/03/2023 MCV 99.3 (H) 08/03/2023 PLT 211 08/03/2023 Lab Results Component Value Date CHOL 155 07/29/2023 TRIG 46 07/29/2023 HDL 79 07/29/2023 Blood testing 07/06/2023: Hemoglobin 9.1, platelets 301, potassium 4.3, BUN 88, creatinine 2.26, EGFR 22, LFTs normal. Blood testing 08/10/2023: Hemoglobin 9.6, platelets 257, potassium 4.3, BUN 58, creatinine 1.94, EGFR 26. LFTs normal. Blood testing 12/07/2023: Hemoglobin 9.4, platelets 307, BUN 68, creatinine 2.22, potassium 5.0, LFTs normal. blood testing 12/18/2023: Hemoglobin 9.1, platelets 324, potassium 5.2, BUN 89, creatinine 2.66, EGFR 18, LFTs normal. Blood testing during the admission 02/28/2024: D-dimer 1.09, potassium 5.2, BUN 52, creatinine 2.1, EGFR 24, NT proBNP 1082. Blood testing 03/13/2024: Hemoglobin 9.0, platelets 334, BUN 64, creatinine 1.51, EGFR 35. blood testing 03/19/2024: Hemoglobin 8.8, platelets 268, potassium 4.1, BUN 66, creatinine 1.6, EGFR33, LFTs normal. Blood testing 09/27/2024: Hemoglobin 9.4, platelets 282, potassium 4.3, BUN 58, creatinine 2.12, EGFR24. Blood testing 10/07/2024: Hemoglobin 10.1, platelets 279, BUN 61, creatinine 1.63, EGFR 32, LFTs within normal except for elevated alkaline phosphatase at 277. Blood testing 03/18/2025: Hemoglobin 10.7, platelets 208, potassium 4.8, BUN 32, creatinine 1.75, eGFR 29, LFTs elevated alkaline phosphatase at 211. Blood testing 04/23/2025: Hemoglobin 10.6, platelets 241, potassium 5.1, BUN 30, creatinine 2.04, eGFR 25. Imaging and other tests ECG 04/28/2025: Normal sinus rhythm, normal ECG. ECG 10/15/2024: Normal sinus rhythm, normal ECG. Lower extremity venous duplex 09/16/2024: No DVT in the right and left lower extremity. Soft tissue swelling and edema noted in the distal right and left lower extremity soft tissues. ECG 09/15/2024: Normal sinus rhythm, minimal voltage criteria for LVH, may be normal variant. Lower extremity venous duplex 03/29/2024: There is no direct or indirect evidence of DVT in the leftlower extremity at this time. Lower extremity venous duplex 02/28/2024: IMPRESSION: 1. No deep venous thrombus ECG 02/28/2024: Sinus rhythm, minimal voltage criteria for LVH may be normal variant, nonspecific T wave inversion in III. Chest x-ray 02/28/2024: . Low lung volume examination with mild bibasilar infiltrates versus atelectasis. Venous duplex 01/08/2024: occlusive and non-occlusive DVT in the left posterior tibial and distal femoral veins. Carotid duplex 01/22/2024: < 50% stenosis in the right internal carotid artery. < 50% stenosis in the left internal carotid artery. Normal antegrade flow involving the right vertebral artery. Evidence of both antegrade and retrograde flow in the left vertebral artery. Lower extremity duplex 10/23/2023: 1. No deep vein thrombus within the right or left lower extremity. ECG 09/29/2023: Sinus rhythm, normal ECG. ECG 08/01/2023: Normal sinus rhythm, Minimal voltage criteria for LVH, may be normal variant (R in aVL), Borderline ECG Echocardiogram 07/31/2023: Left Ventricle: The left ventricle is normal size. Global left ventricular systolic function is normal. The EF is 60 % visually. Left ventricular wall thickness is normal. No regional wall motion abnormality. Normaldiastolic function. Right Ventricle: The right ventricle is normal in size. Normal right ventricular systolic function. Doppler studies suggest normal right sided pressures. Left Atrium: The left atrium is mildly enlarged. Overall Conclusions: No significant valvular abnormalities Due to suboptimal imaging Lumason contrast was administered for opacification and better delineation of endocardial borders. Lower extremity venous duplex 07/20/2023: No DVT in the bilateral lower extremities above the knee. Diffuse subcutaneous edema of the lower extremities. Small popliteal cyst of the right knee Lower extremity venous duplex 12/23/2022: CONCLUSION: 1. Mild right and moderate left great saphenous vein venous insufficiency with dilatation and saphenofemoral junction reflux 2. Mild right and moderate left anterior accessory saphenous vein venous insufficiency dilatation 3. Moderate right and mild left deep vein reflux 4. Right incompetent vp genetic vein 5. Bilateral incompetent varicose veins Right heart catheterization 11/30/2022: Hemodynamic Data: RA: 7 RV: 45/4, 1 PA: 47/13 (29) PCWP: 15 CO: 6.53 CI: 3.66 O2 Sat: PA sat: 73%, AO sat: 100% BP: 136/61 (80) TP PVR: 2.1 Wood units Impression/Findings: Mild elevation of left filling pressures. Mild elevation of right filling pressures. mild pulmonary hypertension. Normal cardiac output and cardiac index. Uncontrolled systemic hypertension. Findings are consistent with post-capillary and reactive pulmonary hypertension and diastolic heartfailure. Plan: Continue current diuretic therapy. Consider addition of an extra 1 mg Bumex on an as-needed basis for worsening symptoms of shortness of breath. Follow-up in cardiology clinic. ECG 11/03/2022: Sinus rhythm, nonspecific T wave inversion in lead III. Chest x-ray 11/03/2022: No acute cardiopulmonary process. Echocardiogram 09/21/2022: Normal left ventricular systolic function, LVEF is 65%, mildly dilated right ventricle with normal systolic function, mild mitral, tricuspid and pulmonary regurgitation, moderate to severe biatrial dilatation, moderately to severely elevated right-sided pressures, RVSP is 59 mmHg, no pericardial effusion. Chest x-ray 10/24/2022: Cardiomegaly, no acute radiographic findings. Echocardiogram 08/20/2018: Normal LV systolic function. Left atrial enlargement. Moderate diastolic dysfunction. Moderate to severe tricuspid regurgitation. Severely elevated right sided pressures, RVSP 74 mmHg. Mild mitral, aortic, and pulmonary regurgitation. Echocardiogram 05/14/2018: RVSP 48 mmHg. Cardiac cath 03/23/2016: 1. Mild coronary artery disease. 2. Normal global left ventricular systolic function on noninvasive imaging. 3. Mildly elevated right-sided heart pressures and wedge pressure. PA: 36/18 (26). 4. Normal cardiac output/cardiac index. CTA chest 08/19/2018: no central pulmonary embolism Transesophageal echocardiogram 10/12/2018: Left ventricle systolic function [...] without contrast 09/01/2018: No acute cardiopulmonary pathology. Right heart catheterization: Normal filling pressures. Normal pulmonary pressures. Normal cardiac output and cardiac index. Assessment/Plan Diagnoses and all orders for this visit: Preop cardiovascular exam - ECG 12 lead unit performed Chronic diastolic congestive heart failure (CMS/HCC) Primary hypertension - dilTIAZem CD (Cardizem CD) 120 mg 24 hr capsule; Take 1 capsule (120 mg) by mouth in the morning. Pulmonary hypertension (CMS/HCC) Lymphedema History of DVT of lower extremity 1. Preoperative evaluation for shoulder surgery: As long as her blood pressure is under good control, she can proceed at low to intermediate cardiac risk. 2. Chronic diastolic heart failure: Currently NYHA class II symptoms. Mild leg edema on exam. Continue current diuretic therapy. 3. Hypertension: Blood pressure is not controlled. She says that she is under a lot of social stressors. She used to be on carvedilol but this was stopped due to side effects. I am going to try her on diltiazem CD1 20 mg daily. 4. She has lymphedema and uses lymphedema pumps. Currently mild leg swelling. 5. History of DVT of lower extremity: Currently holding Eliquis due to undergoing oral surgery. Sheneeds to resume it as soon as possible. This can be held 1 to 2 days prior to the shoulder surgery but should be resumed as soon as possible afterwards. 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 Yuri Godinez with regular BMP levels. follow-up with me in 6 months. Follow up in about 6 months (around 10/26/2025). Mark Hidalgo MD documented in this encounter Plan of Treatment DateTypeDepartmentCare Team (Latest Contact Info)Fmjyxqfmijm84/24/2025 11:00 AM ESTPre-Admission Testing [facility] Pre-Anesthesia Clinic [address] [place] [address] [place] [address] 05/28/2025 3:30 PM ESTHospital Encounter [facility] Main Operating Room [address] [place] [phone] Rojas Butterfield MD [address] [place], [place] [address] [phone] 142- 05/28/2025 3:30 PM EST - 05/28/2025 6:30 PM ESTSurgery [facility] Main Operating Room [address] [place] [address] Rojas Butterfield MD [address] [place] [phone] REVERSE TOTAL SHOULDER ARTHROPLASTY [03216 (CPT??)]06/10/2025 11:00 AM ESTOffice Visit [facility] [address] [place] [address] [place] [phone] Rojas Butterfield MD [address] [place] [phone] 682- NamePriorityAssociated DiagnosesDate/TimeARTHROPLASTY, SHOULDER, TOTAL S/P reverse total shoulder arthroplasty, left Biceps tendinosis of left shoulder 05/28/2025 3:30 PM ESTTENODESIS, BICEPS S/P reverse total shoulder arthroplasty, left Biceps tendinosis of left shoulder 05/28/2025 3:30 PM ESTdocumented as of this encounter Procedures Procedure NamePriorityDate/TimeAssociated DiagnosisCommentsECG 12 LEAD UNIT [id number]/03/2025 1:44 PM EST Preop cardiovascular exam documented in this encounter Results * ECG 12 lead unit performed (04/28/2025 1:44 PM EST)Specimen (Source)Anatomical Location / LateralityCollection Method / VolumeCollection TimeReceived Time Narrative Authorizing ProviderResult TypeResult StatusGeorge Gwen GARAYG ORDERABLES Final Result documented in this encounter Visit Diagnoses Diagnosis S/P reverse total shoulder arthroplasty, left Biceps tendinosis of left shoulder Preop cardiovascular exam- Primary Pre-operative cardiovascular examination Chronic diastolic congestive heart failure (CMS/HCC) Primary hypertension Unspecified essential hypertension Pulmonary hypertension (CMS/HCC) Other chronic pulmonary heart diseases Lymphedema 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
[2025-05-11] VITALS (58 sets, daily range): BP systolic 112–176; BP diastolic 62–107; PULSE 62–107; TEMP 36.3–36.8; O2SAT 92–99; BMI 29.3; BMI 35.1
--- NOTE | 2025-05-11 00:41 | ECG_ITS ---
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 Measurements Intervals [place] Rate: 90 P: 12 NE: 140 QRS: 44 QRSD: 100 T: 30 QT: 354 QTc: 402 Interpretive Statements 1100 Sinus rhythm Normal ECG Compared to ECG 10/15/2024 16:22:12 No significant changes Electronically Signed On 05-11-2025 6:47:07 EST by BENJIE DANG M.D.
--- NOTE | 2025-05-11 00:46 | ED.GENADUL1 ---
HPI HPI - General Adult General Chief complaint: Fall Stated complaint: fall Time Seen by Provider: 05/11/25 00:34 Source information: EMS Mode of arrival: ambulance Limitations: no limitations History of Present Illness HPI narrative: 65-year-old female presents for vague complaints. She seems to be drowsy. When asked questions she rambles and starts to answer the question but then diverts into another line of thought. It appears that she had fallen and she complains of left knee pain. She was seen here during the day and at that time had vague complaints and was discharged home. All of her complaints at that point seem to be chronic. She is on medications including alprazolam, amitriptyline, Fioricet, doxepin, fentanyl patch, and Percocet. Related Data Home Medications ?Medication ?Instructions ?Recorded ?Confirmed alprazolam 0.5 mg tablet 0.5 mg PO BID PRN anxiety 12/08/22 05/11/25 amitriptyline 150 mg tablet 300 mg PO BEDTIME 12/08/22 05/11/25 calcium acetate(phosphat bind) 667 667 mg PO BIDWM 12/08/22 05/11/25 mg capsule levothyroxine 100 mcg tablet 100 mcg PO DAILY 12/08/22 05/11/25 linaclotide 290 mcg capsule 290 mcg PO DAILY 12/08/22 05/11/25 (Linzess) oxycodone-acetaminophen 5 mg-325 2 tab PO Q6H PRN pain 12/08/22 05/11/25 mg tablet primidone 50 mg tablet 150 mg PO BEDTIME 12/08/22 05/11/25 tizanidine 4 mg tablet (Zanaflex) 4 mg PO Q6H PRN muscle spasticity 12/08/22 05/11/25 azelastine 0.05 % eye drops 1 drp ophthalmic (eye) DAILY 09/29/23 05/11/25 desvenlafaxine succinate 50 mg 50 mg PO DAILY 09/29/23 05/11/25 tablet,extended release 24 hr doxepin 10 mg capsule 20 mg PO BEDTIME 09/29/23 05/11/25 escitalopram oxalate 20 mg tablet 20 mg PO DAILY 09/29/23 05/11/25 fentanyl 100 mcg/hr transdermal 1 patch transdermal Q72H 10/12/23 05/11/25 patch pramipexole 1 mg tablet 1 mg PO .QHS 10/23/23 04/23/25 sacubitril 49 mg-valsartan 51 mg 1 tab PO BID 01/04/24 05/11/25 tablet (Entresto) apixaban 5 mg tablet (Eliquis) 5 mg PO BID 03/29/24 05/11/25 sevelamer carbonate 800 mg tablet 800 mg PO BID 03/29/24 05/11/25 calcitriol 0.5 mcg capsule 0.5 mcg PO DAILY 10/07/24 05/11/25 torsemide 100 mg tablet 100 mg PO DAILY 10/07/24 05/11/25 jgviqjdugn-mwcelkhaqbqgs-hyownxex 1 tab PO BID PRN migraine headache 10/15/24 05/11/25 50 mg-325 mg-40 mg tablet liothyronine 25 mcg tablet 25 mcg PO DAILY 10/15/24 05/11/25 Allergies Allergy/AdvReac Type Severity Reaction Status Date / Time povidone-iodine (From Allergy Intermediate Rash Verified 05/11/25 00:32 Betadine) amoxicillin (From Augmentin) AdvReac Mild Vomiting Verified 05/11/25 00:32 clavulanic acid (From AdvReac Mild Vomiting Verified 02/10/25 12:00 Augmentin) Sulfa (Sulfonamide AdvReac Mild Vomiting Verified 05/11/25 00:32 Antibiotics) ciprofloxacin (From Cipro) AdvReac Unknown Vomiting Verified 05/11/25 00:32 Opioid HPI Opioid Management Most Recent Opioid Data: Last Pain Scale 10 Today, 00:27 Last ORT Total Score 2 10/15/24, 18:36 Last ORT Risk Category Low Risk 10/15/24, 18:36 Review of Systems ROS Narrative A ten point review of systems is negative except as noted above. [facility] Medical History Hyperglycemia ?R73.9 - Hyperglycemia, unspecified (ICD-10) Recurrent UTI ?N39.0 - Urinary tract infection, site not specified (ICD-10) Atelectasis of both lungs ?J98.11 - Atelectasis (ICD-10) C2 cervical fracture ?S12.100A - Unspecified displaced fracture of second cervical vertebra, initial encounter for closed fracture (ICD-10) Shoulder pain, left ?M25.512 - Pain in left shoulder (ICD-10) Pulmonary embolism ?I26.99 - Other pulmonary embolism without acute cor pulmonale (ICD-10) DVT (deep venous thrombosis) ?I82.409 - Acute embolism and thrombosis of unspecified deep veins of unspecified lower extremity (ICD-10) Osteoporosis ?M81.0 - Age-related osteoporosis without current pathological fracture (ICD-10) Seizures ?R56.9 - Unspecified convulsions (ICD-10) IBS (irritable bowel syndrome) ?K58.9 - Irritable bowel syndrome without diarrhea (ICD-10) D-dimer, elevated ?R79.89 - Other specified abnormal findings of blood chemistry (ICD-10) Chronic kidney insufficiency ?N18.9 - Chronic kidney disease, unspecified (ICD-10) Fluid overload ?E87.70 - Fluid overload, unspecified (ICD-10) Lymphedema ?I89.0 - Lymphedema, not elsewhere classified (ICD-10) Volume overload ?E87.70 - Fluid overload, unspecified (ICD-10) Anemia of chronic disease ?D63.8 - Anemia in other chronic diseases classified elsewhere (ICD-10) Chronic kidney disease ?N18.9 - Chronic kidney disease, unspecified (ICD-10) Acute kidney injury ?N17.9 - Acute kidney failure, unspecified (ICD-10) Edema of lower leg due to peripheral venous insufficiency ?I87.2 - Venous insufficiency (chronic) (peripheral) (ICD-10) ?R60.0 - Localized edema (ICD-10) Depression ?F32.A - Depression, unspecified (ICD-10) Gastroenteritis ?K52.9 - Noninfective gastroenteritis and colitis, unspecified (ICD-10) Migraine without aura and without status migrainosus, not intractable ?G43.009 - Migraine without aura, not intractable, without status migrainosus (ICD-10) Chronic heart failure with preserved ejection fraction (HFpEF) ?I50.32 - Chronic diastolic (congestive) heart failure (ICD-10) Chest pain ?R07.9 - Chest pain, unspecified (ICD-10) Dyspnea ?R06.00 - Dyspnea, unspecified (ICD-10) Osteoarthritis ?M19.90 - Unspecified osteoarthritis, unspecified site (ICD-10) Anemia ?D64.9 - Anemia, unspecified (ICD-10) Anxiety ?F41.9 - Anxiety disorder, unspecified (ICD-10) Stroke ?I63.9 - Cerebral infarction, unspecified (ICD-10) Acid reflux ?K21.9 - Gastro-esophageal reflux disease without esophagitis (ICD-10) Hypothyroid ?E03.9 - Hypothyroidism, unspecified (ICD-10) COPD (chronic obstructive pulmonary disease) ?J44.9 - Chronic obstructive pulmonary disease, unspecified (ICD-10) Asthma ?J45.909 - Unspecified asthma, uncomplicated (ICD-10) CHF (congestive heart failure) ?I50.9 - Heart failure, unspecified (ICD-10) Irregular heart beat ?I49.9 - Cardiac arrhythmia, unspecified (ICD-10) HTN (hypertension) ?I10 - Essential (primary) hypertension (ICD-10) Heart attack ?I21.9 - Acute myocardial infarction, unspecified (ICD-10) Lumbar spondylosis ?M47.816 - Spondylosis without myelopathy or radiculopathy, lumbar region (ICD-10) Surgical History H/O cervical spinal arthrodesis ?Z98.1 - Arthrodesis status (ICD-10) Port-A-Cath in place ?Z95.828 - Presence of other vascular implants and grafts (ICD-10) History of lumbar fusion ?Z98.1 - Arthrodesis status (ICD-10) H/O hysterectomy with oophorectomy H/O gastric bypass ?Z98.84 - Bariatric surgery status (ICD-10) History of hernia repair ?Z98.890 - Other specified postprocedural states (ICD-10) ?Z87.19 - Personal history of other diseases of the digestive system (ICD-10) History of rotator cuff surgery ?Z98.890 - Other specified postprocedural states (ICD-10) History of right knee joint replacement ?Z96.651 - Presence of right artificial knee joint (ICD-10) History of appendectomy ?Z90.49 - Acquired absence of other specified parts of digestive tract (ICD-10) Hx of cholecystectomy ?Z90.49 - Acquired absence of other specified parts of digestive tract (ICD-10) Family History Father Family history of CHF (congestive heart failure) Family history of diabetes mellitus Family history of hypertension Family history of myocardial infarction Family history of stroke Mother Family history of CHF (congestive heart failure) Family history of COPD (chronic obstructive pulmonary disease) Family history of diabetes mellitus Family history of hypertension Family history of myocardial infarction Family history of stroke Social History (Updated 09/15/24 @ 22:10 by Rosa Isela Marroquin RN) Within the past year, how often did you have a drink containing alcohol: never Within the past year, how often did you have six or more drinks on one occasion: never Score interpretation: A score less than 3 is consistent with normal alcohol consumption. 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 Highest level of school completed/degree received: some college, no degree Are you now , , , , never or living with a partner: In a typical week, how many times do you talk on the telephone with family, friends, or neighbors: 3 or more times per week How often do you get together with friends or relatives: twice per week How often do you attend evangelical or rastafarian services: 4 or more times per year Do you belong to any clubs or organizations such as evangelical groups unions, [employer]ear[employer] or athletic groups, or school groups: no Total score: 3 Score interpretation: A score of greater than or equal to 2 indicates the lowest level of social isolation. Little interest or pleasure in doing things: not at all Feeling down, depressed, or hopeless: not at all Feel stressed/tense/nervous/anxious/difficulty sleeping: to some extent Life stressors: recent of family or friend Do you think of yourself as: straight/heterosexual Gender Identity: female Exam Narrative Exam Narrative: Nurses note and vital signs reviewed General:The patient appears in no apparent distress.Patient appears drowsy Skin:Warm, dry, no pallor noted.There is no rash noted. Head:Normocephalic, atraumatic Eye: Normal conjunctiva, no drainage Ears, Nose, Mouth, and Throat: oral mucosa is moist. Nares patent. Cardiovascular:Regular Rate and Rhythm Respiratory:Patient is in no distress, no accessory muscle use, lungs are clear to auscultation, no wheezing, rales or rhonchi Back:non-tender GI: Soft and nontender Musculoskeletal: Left knee has no deformity or bruise or abrasion. It has good range of motion. Hip and ankle are nontender. Neurological: She is awake. She is oriented. She seems drowsy and her speech is slightly thick. At times she seems to have difficulty staying awake. Psychiatric:Cooperative Constitutional Vital Signs, click to edit/add: Last Vital Signs Temp 97.5 F L 05/11/25 00:27 Pulse 91 H 05/11/25 00:27 Resp 18 05/11/25 00:27 BP 132/82 05/11/25 00:27 Pulse Ox 97 05/11/25 00:27 O2 Del Method Room Air 05/11/25 00:27 Course Vital Signs Vital signs: Vital Signs Temperature 97.5 F L 05/11/25 00:27 Pulse Rate 91 H 05/11/25 00:27 Respiratory Rate 18 05/11/25 00:27 Blood Pressure 132/82 05/11/25 00:27 Pulse Oximetry 97 05/11/25 00:27 Oxygen Delivery Method Room Air 05/11/25 00:27 Temperature 97.5 F L 05/11/25 00:27 Pulse Rate 91 H 05/11/25 00:27 Respiratory Rate 18 05/11/25 00:27 Blood Pressure 132/82 05/11/25 00:27 Pulse Oximetry 97 05/11/25 00:27 Oxygen Delivery Method Room Air 05/11/25 00:27 Medical Decision Making MDM Narrative Medical decision making narrative: The patient is clearly overmedicated with sedating medications. She is drowsy and will not speak and is oriented but will sometimes fall asleep while speaking. She is being given IV fluids because her BUN and creatinine are quite elevated above her baseline and her potassium is 5.9. For that issue she was given IV insulin and D50. She is being admitted. Treatment diagnosis and disposition were discussed with the patient. Differential Diagnosis Differential Diagnosis: Contusion, fracture, dehydration Lab Data Lab results reviewed: Yes I reviewed the patient's lab results Labs: Lab Results 05/11/25 05/11/25 Range/Units 00:54 02:35 WBC 5.5 (4.0-11.0) 10^3/uL RBC 3.03 L (4.20-5.40) 10^6/uL Hgb 9.6 L (12.0-16.0) g/dL Hct 31.2 L (36.0-48.0) % MCV 103.0 H (81.0-99.0) fL MCH 31.7 (26.7-34.0) pg MCHC 30.8 (29.9-35.2) g/dL RDW 14.6 (11.0-15.0) % Plt Count 222 (150-450) 10^3/uL MPV 9.4 L (9.5-13.5) fL Neut % (Auto) 79.2 H (43.0-75.0) % Lymph % (Auto) 13.4 L (20.5-60.0) % [place] % (Auto) 5.4 (1.7-12.0) % Eos % (Auto) 0.9 (0.9-7.0) % Baso % (Auto) 0.4 (0.2-2.0) % Neut # (Auto) 4.4 (1.4-6.5) 10^3/uL Lymph # (Auto) 0.7 L (1.2-3.8) 10^3/uL [place] # (Auto) 0.3 (0.3-0.8) 10^3/uL Eos # (Auto) 0.1 (0.0-0.7) 10^3/uL Baso # (Auto) 0.0 (0.0-0.1) 10^3/uL Abs Immat Gran (auto) 0.04 H (0.00-0.03) 10^3/uL Imm/Tot Granulo (auto) 0.7 H (0.0-0.5) % Sodium 140 141 (136-145) mmol/L Potassium 5.9 H 5.9 H (3.5-5.1) mmol/L Chloride 109 H 110 H (98-107) mmol/L Carbon Dioxide 17.9 L 18.3 L (21.0-32.0) mmol/L Anion Gap 19.0 18.6 BUN 63.0 H 61.0 H (7.0-18.0) mg/dL Creatinine 3.80 H 3.77 H (0.55-1.02) mg/dL Est GFR ( Amer) 15 L 15 L (>=60 mL/min/1.73m^2) Est GFR (Non-Af Amer) 12 L 12 L (>=60 mL/min/1.73m^2) BUN/Creatinine Ratio 16.6 16.2 Glucose 87 81 (74-106) mg/dL Calcium 8.4 L 8.1 L (8.5-10.1) mg/dL Imaging Data Knee x-ray: My impression: Degenerative changes, no acute findings ECG Data Attestation: I personally reviewed and interpreted this ECG as follows: (EKG on my interpretation shows sinus rhythm with a rate of 90 and no acute change) Discharge Plan Discharge Chief Complaint: Fall Clinical Impression: Acute kidney injury, Acute hyperkalemia Patient Disposition: Admitted As Inpatient Time of Disposition Decision: 03:10 Condition: Fair
[2025-05-11 01:05] LABS: Hematocrit 31.2 % (36.0-48.0); Hemoglobin 9.6 g/dL (12.0-16.0); Immature Granulocytes Abs Auto 0.04 10^3/uL (0.00-0.03); Immature Granulocytes Pct Auto 0.7 % (0.0-0.5); Lymphocytes Absolute Auto 0.7 10^3/uL (1.2-3.8); Mean Corpuscular HGB Conc 30.8 g/dL (29.9-35.2); Mean Corpuscular Hemoglobin 31.7 pg (26.7-34.0); Mean Corpuscular Volume 103.0 fL (81.0-99.0); Platelet Count 222 10^3/uL (150-450); Red Blood Count 3.03 10^6/uL (4.20-5.40); White Blood Count 5.5 10^3/uL (4.0-11.0)
[2025-05-11 01:13] LABS: Anion Gap 19.0; Blood Urea Nitrogen 63.0 mg/dL (7.0-18.0); Calcium 8.4 mg/dL (8.5-10.1); Carbon Dioxide 17.9 mmol/L (21.0-32.0); Chloride 109 mmol/L (98-107); Estimated GFR (African America 15 (>=60 mL/min/1.73m^2); Estimated GFR (Non-African Ame 12 (>=60 mL/min/1.73m^2); Glucose 87 mg/dL (74-106); Sodium 140 mmol/L (136-145)
--- OUTSIDE RECORDS SUMMARY | 2025-05-11 01:21 | XMS_ITS | Clinical Summary ---
Author Organization [facility] Address [address] [place], [place] [id number] Support Name Relationship Address Phone Delio Moser Spouse [address] [place] [address] Jyothi Perez Daughter Unknown [phone] Care Team Providers Care Hospice Volunteer Name Role Phone Yuri Godinez MD Primary Care Provider [phone] Allergies Active AllergyReactionsCriticalityNoted DateCommentsAmoxicillin-Pot Clavulanate Diarrhea,Kycokeln16/23/2016Povidone-IodineOther: See Xhueqmpl84/23/2016 Peels skin Sulfa (Sulfonamide Antibiotics)Ftwddowh21/23/2016 Medications MedicationSigDispense QuantityRefillsLast FilledStart DateEnd DateStatus pantoprazole [...] EVERY 6 HOURS NEEDED FOR LUMBAR DISC [id number] KLOR-CON 10 10 mEq tablet Indications:Anemia, unspecified type,Renal insufficiency,Iron deficiency anemia, unspecified iron deficiency anemia type,Other vitamin B12 deficiency anemia,H/O gastric bypassTake 10 mEq by mouth twice daily.Active primidone (MYSOLINE) 50 mg tablet Indications:Anemia, unspecified type,Renal insufficiency,Iron deficiency anemia, unspecified iron deficiency anemia type,Other vitamin B12 deficiency anemia,H/O gastric bypassTAKE 4 TABLETS BY MOUTH EVERY DAY AT [id number] B Complex Vitamins capsule Take 1 capsule [...] Active Problems ProblemNoted DateDiagnosed DateChronic obstructive pulmonary uwiawfr4003/02/2017 Dcdckzwoifwbiw13/07/2017Other specified anxiety egpilhkdw20/07/2017Morbid (severe) obesity due to excess iukjdhzu82/25/2017Other jgltwwp7701/13/2017Fluid ygwbuguh03/19/2017Heart feteony0312/12/2016Intractable migraine without status usucpwwzxrz15/24/2017Displacement of lumbar intervertebral disc without gkybzpqihl76/20/1726Qiirjnhnhtrj51/20/2017Spinal stenosis, lumbar region, without neurogenic fhrlvywufyhd84/20/2017CKD (chronic kidney disease) stage 3, GFR 30-59 ml/min07/21/20161869Pdtzef86/23/2016Renal dyrzvuyrpstze06/23/2016Abnormal weight loss03/18/2016Iron deficiency sahenl5603/18/2016Anemia due to vitamin B12 xjukdwwvfq15/23/2016H/O gastric syzdaz2703/18/2016 Family History Medical HistoryRelationCommentsDiabetesFatherHypertensionFatherNo Ocular Disease FatherCancerMotherCataractMotherDiabetesMotherGlaucomaMotherHeartMother HypertensionMotherRelationStatusCommentsFatherMother Social History Tobacco UseTypesPacks/DayYears UsedDateSmoking Tobacco: NeverSmokeless Tobacco: NeverAlcohol UseStandard Drinks/WeekCommentsYes0 (1 standard drink = 0.6 oz pure alcohol)rarelyArea Deprivation IndexAnswerDate RecordedNational Score (1-100), lower number is lower riskNot on file06/03/2020State Score (1-10), lower number is lower riskNot on file06/03/2020Data from: https://www.neighborhoodatlas.medicine.[facility].edu/. Last address used for calculationNot on file06/03/2020CommentsNoSex and Gender Information ValueDate RecordedSex Assigned at BirthNot on fileLegal SqcDmdhhr08/01/2013 9:35 AM EDTGender IdentityNot on fileSexual OrientationNot on file Last Filed Vital Signs Vital SignReadingTime TakenCommentsBlood Qkncizws442/80011/06/2019 2:32 PM EDT Ritlx7779 2:32 PM VZJYpkikpvoiyw37.6 ??C (97.8 ??F)11/06/2019 2:32 PM EDTRespiratory Rtil868311/06/2019 2:32 PM EDTOxygen Hndksntelb47%11/06/2019 2:32 PM EDTInhaled Oxygen Concentration--Fmawua44.4 kg (201 lb 9.6 oz)11/06/2019 2:32 PM BQCVocvxl915.8 cm (5' 2.52 )11/06/2019 2:32 PM EDTBody Mass Index36.26 11/06/2019 2:32 PM EDT Plan of Treatment Health MaintenanceDue DateLast DoneCommentsAnxiety Uspqhnakx51/31/1980Depression Dahlohlud44/31/1980HIV Veqpvquod25/31/1980Hepatitis C Zzxutnqnc66/31/1980 DTaP,Tdap,Td Vaccine (1 - Tdap)1981Cervical Cancer Irxdaauau47/31/1983 Mammogram Clyypvwms67/31/2002CT Vauxvnkcmptf39/31/2007Cologuard (FIT-DNA) 02/23/20078596Reswdgcflwn13/31/2007Colorectal Cancer Gbmxuanca72/31/2007Fecal Occult Blood2007Lipid Gktergyzz68/31/4943Wclxxesgndrbs55/31/2007Shingrix Vaccine (1 of 2)02/24/2012Pneumococcal Vaccine: 50+ (2 of 2 - PCV) Diabetes Vncwabwah49, 08/26/2019, 07/22/2019, Additional history existsCovid-19 Vaccine (1 - 2024- season)2025Influenza Vaccine (#1)/02/2018, 05/04/2017RSV Vaccine (1 - 1-dose 75+ series) 2037 Procedures Procedure NamePriorityDate/TimeAssociated DiagnosisCommentsCOMPREHENSIVE METABOLIC TLCRWCoclefl36/13/2020 2:29 PM EDT Anemia, unspecified type Renal insufficiency H/O gastric bypass from Last 3 Months or Most Recently Relevant to Health Maintenance Results * (ABNORMAL) COMP METABOLIC PANEL (11/06/2019 2:29 PM EDT)ComponentValueRef RangeTest MethodAnalysis TimePerformed AtPathologist SignatureProtein, Total 6.0(L)6.3 - 8.0 g/dL11/06/2019 2:52 PM [facility]TCK[facility] Cancer CareAlbumin4.03.9 - 4.9 g/dL11/06/2019 2:52 PM ED[facility] Cancer CareCalcium8.1(L)8.5 - 10.2 mg/dL11/06/2019 2:52 PM [facility] CareBilirubin, Total0.20.2 - 1.3 mg/dL11/06/2019 2:52 PM [facility] Cancer CareAlkaline Fnqgeuwuiwp518(H)34 - 123 U/L11/06/2019 2:52 PM [facility] Cancer YrioIOS4440 - 35 U/L11/06/2019 2:52 PM [facility] Cancer YmkqDcfjfws0906 - 99 mg/dL11/06/2019 2:52 PM [facility] Cancer CareComment: The [place] Diabetes Association (ADA) provides guidance for cutoff [...] Standards of Medical Care in Diabetes 2016, [place] [employer] Association. Diabetes Care. 2016.39(Suppl 1). CRC850 - 21 mg/dL11/06/2019 2:52 PM EDTCK[facility] Creatinine0.960.58 - 0.96 mg/dL11/06/2019 2:52 PM [facility]TCK[facility] Cancer LvovJdgdpp579(L)136 - 144 mmol/L11/06/2019 2:52 PM EDUniversity [facility] Cancer CarePotassium4.23.7 - 5.1 mmol/L11/06/2019 2:52 PM EDT [facility] Cancer LqimXdmhnedu74(L)97 - 105 mmol/L11/06/2019 2:52 PM [facility]TCK[facility] Cancer VsteHD89534 - 30 mmol/L11/06/2019 2:52 PM EDUniversity [facility] Cancer CareAnion Gap8(L)9 - 18 mmol/L 11/06/2019 2:52 PM EDUniversity [facility] LaovTDU349 - 38 U/L 11/06/2019 2:52 PM [facility] Cancer CareeGFR->60011/06/2019 2:52 PM EDTCKet[facility] Cancer CareeGFR- All Other Races60.11/06/2019 2:52 PM [facility] Care Comment: eGFR (Estimated GFR) Units [...] StatusCharles Tesfaye MDLABORATORYFinal ResultPerforming OrganizationAddressCity/State/ZIP CodePhone Number [address] [place] [address] [facility] [address] [place], [place] from Last 3 Months or Most Recently Relevant to Health Maintenance Insurance Care Teams Team MemberRelationshipSpecialtyStart Date Yuri Godinez MD PCP - GeneralFamily Medicine09/24/12
--- OUTSIDE RECORDS SUMMARY | 2025-05-11 01:21 | XMS_ITS | Clinical Summary ---
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 HELPER) 10 MG disintegrating tablet Take 1 tablet [...] tablet by mouth daily 30 tablet ctive nfiqkgmpvj-jzspocpybcwng-daabujuv (FIORICET, ESGIC) 50-325-40 MG per tablet Indications:Vertebral artery dissectionTake 1 tablet by mouth every 4 hours as needed for Headaches Max Daily Amount: 6 tablets 180 tablet ctive atorvastatin (LIPITOR) 40 MG tablet Take 1 tablet by mouth nightly 30 tablet ctive Ergocalciferol (VITAMIN D) 60977 units CAPS Take 50,000 Units by mouth once a week 5 capsule 01/31/2024ctive Active Problems ProblemNoted DateDiagnosed DateS/P cervical spinal jpbfwi3503/12/2024 Overview (03/12/2024): C1-2 Closed displaced fracture of first cervical vertebra with routine healing 03/12/2024MDD (major depressive disorder), recurrent episode, zbinwyev55/02/2024 Compression fracture of C2 vertebra with delayed lvhvxaa9201/22/2024History of gokpvh0101/22/2024Other displaced dens fracture, zajlxng8701/22/2024Syncope 01/22/2024Vertebral artery buibdhptcr80/29/2024losed nondisplaced fracture of second cervical xfaobkpc59/06/2024Fall at home, initial wrgqycjqo24/06/2024 Restless leg xjookjvm27/06/2024eripheral vascular ltrnjxk4009/30/2023Neuropathy 09/30/20231566Ckveccouhinz54/06/5986Gfyopnyeuv05/06/2024hronic kidney disease 09/30/2023HF (congestive heart failure)09/30/20236581Nndembpvtaws29/06/2024 Irritable bowel avkobaep33/06/8160Ehtgndjil46/06/2024ortical age-related cataract of left eye01/13/2019Cerebral artery occlusion with cerebral infarction 06/26/2011 Resolved Problems ProblemNoted DateDiagnosed DateResolved DatePre-operative cardiovascular vxhncetttcu62/29/202408/ombined forms of age-related cataract of right eye Family History Medical HistoryRelationNameCommentsArthritisFatherHigh Blood PressureFather StrokeFatherArthritisMotherCancerMotherCoronary Art DisMotherDiabetesMotherHeart DiseaseMotherHigh Blood PressureMotherRelationNameStatusCommentsFatherMother Social History Tobacco UseTypesPacks/DayYears UsedDateSmoking Tobacco: NeverSmokeless Tobacco: NeverAlcohol UseStandard Drinks/WeekCommentsNever0 (1 standard drink = 0.6 oz pure alcohol)[facility] UtilitiesAnswerDate RecordedIn the past 12 months [...] steady place to sleep or slept in worleyelter (including now)?No01/22/2024Food InsecurityAnswerDate RecordedWithin the past 12 months, you worried that your food would run out before you got the money to buymore.Within the past 12 months, the food you bought just didn't last and you didn't have money to get more.Interpersonal Safety Domain Source: IP Abuse ScreeningAnswerDate RecordedPhysical abuseDenies 01/22/2024Verbal mfyzdIsjeap25/29/2024Emotional piymkGdgdtd37/29/2024Financial zyldoQqbzvc96/29/2024Sexual wrnphQhzqel20/29/2024CommentsNoSex and Gender InformationValueDate RecordedSex Assigned at BirthNot on fileLegal Sex Zjezlm3108/05/2012 10:51 AM ESTGender IdentityNot on fileSexual OrientationNot on file Last Filed Vital Signs Vital SignReadingTime TakenCommentsBlood Scfvaahi396/7809 8:43 AM EDT Uaxvg947703/12/2024 8:43 AM BVVGwftjkckgbk26.7 ??C (98 ??F)03/12/2024 8:43 AM EDT Respiratory Hpvt4653 3:31 PM EDTOxygen Ahweuzirxx93%01/30/2024 3:31 PM EDTInhaled Oxygen Concentration--Qreiha93.2 kg (212 lb)03/12/2024 8:43 AM EDT Ueloam310.5 cm (5' 2.01 )03/12/2024 8:43 AM EDTBody Mass Index38.7609 8:43 AM EDT Plan of Treatment Health MaintenanceDue DateLast MagyIfkicsqnSblxtg41/31/1972Depression Monitoring 1974HIV cxmvps3402/23/1977Hepatitis C ansxgy2102/24/1980DTaP/Tdap/Td vaccine (1 - Tdap)1981Pap smear1983Cervical cancer yqkdxt8602/24/1992HPV (without or with Pap)02/24/1992Breast cancer vkvzfo9402/23/2002Colonoscopy 2007Colorectal Cancer Nriwjv2002/23/2007FIT/FOBT: Average risk2007 Fecal-DNA (Cologuard): Average risk2007Sigmoidoscopy/CT colonography 2007Respiratory Syncytial Virus (RSV) or age 60 yrs+ (1 - Risk 60-74 years 1-dose series)2022Flu vaccine (#1)5003/11/2023, 05/30/2022, 04/07/2022, Additional history existsGFR test (Diabetes, CKD 3-4, OR last GFR 15-59)/10/2023, 01/28/2024, 01/27/2024, Additional history existsCOVID-19 Vaccine ( season)510/, 09/24/2020, 1Pneumococcal 0-49 years RsgcylmBubvsohithom26/24/2023, 04/12/2016 Pneumococcal 50+ years EmmjgtgQffqjqxjo46/24/2023, 04/12/2016Shingles vaccine Mymdnfxwt69/24/2023, 04/07/2022Hepatitis A vaccineAged OutNo longer eligible based [...] LotLens Iol Li61ao 13.00mm 14.50 D - [id number] Implanted:Qty: 1 on 12/03/2018 by Sebas Carpenter MD at [facility]: EyeBAUSCH -[id number]/23/[id number] 14.50D / [id number] / Lens Iol Li61ao 13.00mm 15.50 D - [id number] Implanted:Qty: 1 on 01/14/2019 by Sebas Carpenter MD at [facility]: EyeBAUSCH -[id number] 15.50D / [id number] / Impl Spine Alphonso Pre-Cut 3.5x25mm - [id number] Implanted:Qty: 1 on 01/25/2024 [facility] Spine CervicalMEDTRONIC [place] INC-[id number] / / Alphonso Spnl L35mm Od35mm Ti Cervicothoracic Precut Prebent - [id number] Implanted:Qty: 1 on 01/25/2024 [facility] Spine CervicalMEDTRONIC SOFAMOR DANEK-[id number] / / Kit Bne Grft Xsm 1.4cc Rhbmp-2 Absrb Cllgn Spng Infuse - [id number] Implanted:Qty: 1 on 01/25/2024 [facility]: Spine CervicalMEDTRONIC SPINALGRAFT TECH-[id number]/30/2025 [id number] / / [id number]:Cervical 1-2Graft Cellr Bne Matrx Influx Sparc 5cc - [id number] Implanted:Qty: 1 on 01/25/2024 [facility]: Spine CervicalISTO TECHNOLOGIES INC-WD08/14/[id number] / / [id number] Cellr Bne Matrx Influx Sparc 5cc - [id number] Implanted:Qty: 1 on 01/25/2024 [facility]: Spine CervicalISTO TECHNOLOGIES INC-WD04/05/[id number] / / [id number] 3.5x32 Pt Screw Implanted:Qty: 1 on 01/25/2024 [facility]: Spine [id number] / / Medtronic 3.5x34 Pt Screw Implanted:Qty: 1 on 01/25/2024 [facility]: Spine [id number] / / Screw Spnl Multaxl 3.5x26 Mm Infin - [id number] Implanted:Qty: 2 on 01/25/2024 [facility]: Spine CervicalMEDTRONIC SOFAMOR DANEK-[id number] / / Set Screw Spinal M6 - [id number] Implanted:Qty: 4 on 01/25/2024 by [facility]: Spine CervicalMEDTRONIC SOFAMOR DANEK-[id number] / / Procedures Procedure NamePriorityDate/TimeAssociated DiagnosisCommentsCOMPREHENSIVE METABOLIC PANEL W/ REFLEX TO MG FOR LOW KSunquest Label Print01/29/2024 11:57 AM EDT from Last 3 Months or Most Recently Relevant to Health Maintenance Results * (ABNORMAL) Comprehensive Metabolic Panel w/ Reflex to MG (01/29/2024 11:57 AM EDT)ComponentValueRef RangeTest MethodAnalysis TimePerformed AtPathologist SzkabeqfuTdrcon349(L)136 - 145 mmol/L01/29/2024 11:57 AM EDTM[facility] Potassium4.43.7 - 5.3 mmol/L01/29/2024 11:57 AM EDTMERCY LABORATORIESChloride 75750 - 107 mmol/L01/29/2024 11:57 AM EDTMERCY NBTZQRQYOAFSAC900(L)20 - 31 mmol/L01/29/2024 11:57 AM EDTMERCY LABORATORIESAnion Xrn361 - 16 mmol/L 01/29/2024 11:57 AM EDTMERCY KDFXDFPQYIHSRqzkuyo2190 - 99 mg/dL01/29/2024 11:57 AM EDTMERCY GODLCBWJCKSOSYY88(H)8 - 23 mg/dL01/29/2024 11:57 AM EDTMERCY LABORATORIESCreatinine1.6(H)0.50 - 0.90 mg/dL01/29/2024 11:57 AM EDTMERCY LABORATORIESEst, Glom Filt Rate38(L)>60 mL/min/1.65f27901/29/2024 11:57 AM EDT [facility] CENTERRezdyComment: ? These results are not intended for [...] - 1.20 mg/dL01/29/2024 11:57 AM EDTMERCY LABORATORIESAlkaline Ltudpujcjgo147(H)35 - 104 U/L01/29/2024 11:57 AM EDTMERCY LABORATORIESALT<5(L)10 - 35 U/L01/29/2024 11:57 AM EDTMERCY HPPQIFAPZROXPHR2792 - 35 U/L01/29/2024 11:57 AM EDTMERCY LABORATORIESSpecimen (Source)Anatomical Location / LateralityCollection Method / VolumeCollection TimeReceived TimeBloodBLOOD SPECIMEN / Rzlawec0201/29/2024 11:57 AM EDT01/29/2024 11:57 AM EDT Narrative Authorizing ProviderResult TypeResult StatusHolly B Osborne DOCHEMISTRY ORDERABLESFinal ResultPerforming OrganizationAddressCity/State/ZIP CodePhone Number [facility] CENTERVeristorm [place] [id number] [phone] from Last 3 Months or Most Recently Relevant to Health Maintenance Insurance * Guarantor: Mabel Mosercount TypeRelation to PatientDate of BirthPhone Billing AddressPersonal/PoqfwsMfxr1960 [facility] [address] [place] [id number] * Guarantor: Mabel Moserunt TypeRelation to PatientDate of BirthPhone Billing AddressPersonal/CbdvhgWric92 [facility] [address] [id number] * Guarantor: Mabel Mosercount TypeRelation to PatientDate of BirthPhone Billing AddressMental RmlhdkYtxg50 [facility] [place] [id number] Advance Directives * Full Code (Latest Code Status on File) Date ActivatedDate InactivatedComments01/22/2024 5:17 AM01/31/2024 2:43 AM * Full Code Date ActivatedDate InactivatedComments09/30/2023 1:23 AM10/01/2023 4:43 PM * Full Code Date ActivatedDate InactivatedComments01/14/2019 9:35 AM01/14/2019 1:23 PM * Full Code Date ActivatedDate InactivatedComments12/03/2018 1:14 PM12/03/2018 4:49 PM Care Teams Team MemberRelationshipSpecialtyStart DateEnd Date Yuri Godinez MD [address] [place] [address] PCP - GeneralFamily Medicine09/07/18
--- OUTSIDE RECORDS SUMMARY | 2025-05-11 01:21 | XMS_ITS | Clinical Summary ---
Author Organization [facility] Address [address] [place] [address] Care Team Providers Care Gamer Name Role Phone uYri Godinez MD Primary Care Provider [phone] Allergies Active AllergyReactionsCriticalityNoted DateCommentsAmoxicillin-Pot Clavulanate Other,Diarrhea,Nausea And Vomiting,GI lednwlkzhkcIqz70/19/2014Povidone-Iodine 10/10/2022arvedilolNausea And Oiatjhhq98/27/5113EoamdpaithRmyom01/19/2014 Kvxtzeqncfkjr68/17/2023lavulanic EmfvWmsiqxfh86/22/2025GabapentinOther 10/10/20229972QmstpmMjpfoue71/04/8434EjlzwcldzeJcwnh43/17/2023Sulfa (Sulfonamide Antibiotics)GI intolerance,Other,XaloUus0506/13/2014Sulfamethoxazole-Trimethoprim Zvtipne0411/27/20222921QwbjfxmyszktAofwhsz63/22/2025 Medications MedicationSigDispense QuantityRefillsLast FilledStart DateEnd DateStatus albuterol 90 mcg/actuation inhaler Inhale 2 puffs every 6 (six) hours if needed.Active ALPRAZolam (Xanax) 0.5 mg tablet Take 0.5 mg by mouth if needed in the morning and at bedtime for sleep.Active amitriptyline (Elavil) 150 mg tablet Take 300 mg by mouth at bedtime.Active ARIPiprazole (Abilify) 2 mg tablet Take 2 mg by mouth in the morning.08/04/2022ctive calcium acetate (Phoslo) 667 mg capsule Take 667 mg by mouth in the morning and at bedtime.09/29/2022ctive DULoxetine (Cymbalta) [address] capsule Take 60 mg by mouth in the morning and at bedtime.Active fentaNYL (Duragesic) 100 mcg/hr Place 1 patch on the skin infusion over 72 (seventy-two) hours.09/20/2022ctive ipratropium-albuteroL (Duo-Neb) 0.5-2.5 mg/3 mL nebulizer solution Take 3 mL by nebulization if needed in the morning, at noon, and at bedtime. Active levothyroxine (Synthroid, Levoxyl) 100 mcg tablet Take 100 mcg by mouth in the morning.Active linaCLOtide (Linzess) 290 mcg capsule Take 290 mcg by mouth before breakfast. Every other dayActive primidone (Mysoline) 50 mg tablet Take 150 mg by mouth at bedtime.Active oxyCODONE-acetaminophen (Percocet) 5-325 mg tablet Take 1-2 tablets by mouth every 6 (six) hours if needed for severe pain (8-10 pain score).Active loratadine (Claritin) 10 mg tablet Take 10 mg by mouth in the morning.Active liothyronine (Cytomel) 25 mcg tablet Take 25 mcg by mouth in the morning.Active Eliquis 2.5 mg tablet Take 5 mg by mouth two times daily.07/06/2023ctive desvenlafaxine (Pristiq) 50 mg 24 hr tablet Take 100 mg by mouth in the morning.Active fluticasone furoate-vilanteroL (Breo Ellipta) 100-25 mcg/dose inhaler 1 puff 1 (one) time each day at the same time.Active pramipexole (Mirapex) 1 mg tablet 1 (one) time each day at the same time.Active sevelamer carbonate (Renvela) 800 mg tablet Take 800 mg by mouth with breakfast, with lunch, and with evening meal. Swallow tablet whole; do not crush, break, or chew.Active butorphanol (Stadol) 10 mg/mL nasal spray Administer 1 spray into each nostril.Active gabapentin (Neurontin) 100 mg capsule Take 100 mg by mouth in the morning, at noon, and at bedtime.Active rosuvastatin (Crestor) 20 mg tablet Take 20 mg by mouth in the morning.Active hyoscyamine 0.[address] 0.125 mg under the tongue.Active carvedilol (Coreg) 6.25 mg tablet Indications:Acute on chronic systolic CHF (congestive heart failure) (CMS/HCC) Take 1 tablet (6.25 mg) by mouth with breakfast and with evening meal for 195 doses. 60 tablet 08/03/2023ctive Additional Information Patient not taking.Reported on 04/28/2025 bumetanide (Bumex) 2 mg tablet Indications:LEEANN (acute kidney injury)Take 1 tablet (2 mg) by mouth in the morning and at bedtime. Take a 3rd dose at noon as needed for signs of fluid retention including worsening edema and weight gain 60 tablet ctive Additional Information Patient not taking.Reported on 04/28/2025 aspirin 81 mg chewable tablet Chew 81 mg 1 (one) time.02/12/2024ctive Entresto 49-51 mg tablet Take 1 tablet by mouth two times daily.10/13/2023ctive atorvastatin (Lipitor) 40 mg tablet 05/05/2024ctive doxepin (SINEquan) 10 mg capsule 07/18/2024tive escitalopram (Lexapro) 20 mg tablet 07/31/2024tive hydrOXYzine HCL (Atarax) 25 mg tablet 04/05/2024ctive nystatin (Mycostatin) 100,000 unit/gram powder 05/21/2024ctive ondansetron ODT (Zofran-ODT) 4 mg disintegrating tablet 05/17/2024ctive spironolactone (Aldactone) 100 mg tablet Take 50 mg by mouth two times daily.07/31/2024tive tiZANidine (Zanaflex) 4 mg tablet 07/19/2024tive cdxdohsrkp-jvyhkskkszpjy-geoi 50-325-40 mg tablet Take 1 tablet by mouth.08/14/2024tive cyanocobalamin (Vitamin B-12) 1,000 mcg/mL injection 1 mL Injection IM every month for 90 days11/27/2023ctive ergocalciferol (Vitamin D-2) 1.25 MG (97259 Units) capsule 1 capsule.Active pantoprazole (ProtoNix) 40 mg EC tablet 1 (one) time each day at the same time.Active azelastine (Astelin) 137 mcg (0.1 %) nasal spray Administer 1 spray into each nostril two times daily. Use in each nostril as directedActive torsemide (Demadex) 100 mg tablet Take 50 mg by mouth two times daily.Active calcitriol (Rocaltrol) 0.5 mcg capsule Take 0.5 mcg by mouth in the morning.Active dilTIAZem CD (Cardizem CD) 120 mg 24 hr capsule Indications:Primary hypertensionTake 1 capsule (120 mg) by mouth in the morning. 90 capsule ctive Active Problems ProblemNoted DateDiagnosed DateChronic kidney disease, stage 3b04/24/2025Fall 04/24/2025S/P reverse total shoulder arthroplasty, left04/08/2025iceps tendinosis of left ycwbyjvw65/14/2025Primary localized osteoarthrosis of shoulder kueqcv1409/23/2024Tear of left rotator cuff09/23/2024bdominal wall skin ulcer09/06/20245461Bzbawfeiajhonuvuapz24/14/2025ervical stenosis of spine03/27/2024 History of Clostridium difficile yihorhj1203/27/20244506Aruqgmnjun30/02/2024Mild neurocognitive jouffmai66/02/5460Bpbvpwahkcsk52/02/2024Vascular insufficiency 03/27/2024oor venous umnpbu9103/27/2024Simple jddbwz5203/27/2024S/P cervical spinal cgfobc7003/12/2024 Overview (03/27/2024): C1-2 MDD (major depressive disorder), recurrent episode, zlfgyznq67/02/2024 Compression fracture of C2 vertebra with delayed thzogly3201/22/2024Syncope 01/22/2024Vertebral artery qwcoghzmai15/29/2024hronic congestive heart failure 09/30/2023Fall at home, initial hkzmqpivh32/06/2024Irritable bowel syndrome 09/30/2023estless legs09/30/2023Other displaced dens fracture, sequela 09/30/2023cute heart vhopbqz26/21/015867/9271Ckvrsdozlpki02/21/2024 08/16/2023eripheral vascular lrtysjr8807/30/2023KI (acute kidney injury) 07/29/2023cute on chronic systolic CHF (congestive heart failure)07/28/2023 History of dkilgf2407/28/20234435Eblxhwcesoou10/02/7530Mdmskpbgmgzqdi64/02/2024 Metabolic sclnrigk31/02/2024re-operative cardiovascular /30/2023 Assessment & Plan (02/22/2023 4:10 PM EDT): RCRI- 0??points Class I Risk 3.9??% 30-day risk of , VT, or cardiac arrest From a cardiology perspective pt may proceed with Total knee arthroplasty with Dr Singleton, she is a low to moderate risk for a low to mod risk orthopedic surgery. She does not take any Aspirin, or anticoagulation. Please monitor hemodynamics carefully and prevent any major fluid shifts. Polyneuropathy associated with critical pgybvnw4111/27/2022olyneuropathy 11/27/20223341Iifjjphog89/04/2023lass 3 bvoxsnf6411/27/2022Lumbar paraspinal muscle spasm11/27/2022Lateral femoral cutaneous neuropathy, left11/27/2022Internal derangement of right blmlsefs30/04/2023History of total right knee replacement 11/27/2022Hemiparesis, left11/27/2022Hemiparesis due to old ukljtu5711/27/2022 Difficulty obhfeak4011/27/2022epressive oirnbrji52/04/6743Nbelpbslcham17/04/2023 Abnormal blood qpuvkihdg17/04/2023Full thickness rotator cuff tear08/31/2021Tear of right rotator cuff07/20/2021cute tllhfemwc73/19/4251Mpsizjo93/19/2021nxiety 01/11/2021Mitral valve agpgjtmfjtkus44/19/2021ulmonic valve regurgitation 01/11/2021ortic valve /19/2021 Assessment & Plan (10/28/2022 3:44 PM EDT): Continue to monitor with echo Closed fracture of trochanter of femur01/11/2021lostridium difficile colitis 01/11/2021iffuse thyroid 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 fdqteefbkvrqqb13/19/2021ehydration 01/11/2021OVID-19001/11/2021dema of lower vegplhras64/19/2021Orthopnea 01/11/2021ndogenous ocnrlzq2101/11/20211899Pedgitfkth80/19/2021Gouty arthropathy 01/11/2021Gastroesophageal reflux zlfakok9601/11/2021Hip pain01/11/2021 Hyperparathyroidism due to renal kzhcsnfntegro49/19/2002Fqjlxxwimbvo14/19/2021 Ojfhmibuajyp27/19/0008Igjugefqvqmz36/19/2021Impingement syndrome of shoulder fxwuot0601/11/20217193Agcwgnno43/19/2021ulmonary ephllqjjomey96/19/2021 Assessment & Plan (02/22/2023 4:14 PM EDT): Remains stable without worsening symptoms Osteoarthritis of knee01/11/2021eft atrial /19/2021heumatic tricuspid valve kqyvhmsjolyok46/19/2021Vitamin D npwgqigjyo24/19/2021Thoracic tainmcmb18/19/2021wallowing onlwezf3401/11/2021unburn of second avqwca6201/11/2021 Sprain of lrmgzeuy39/19/2021Flaccid hemiplegia of right dominant side as late effect of cerebral eupvjwpimt22/19/2021tatus post stwyvagxfyivf35/10/2020 Cortical age-related cataract of left eye01/13/2019Bilateral hearing loss 07/31/2018Tympanic membrane perforation, right07/31/2018Arthritis of right knee 08/11/2017Other specified anxiety vwmcjfqpa69/07/2017Chronic obstructive pulmonary osiquqs0903/02/2017Morbid (severe) obesity due to excess calories 02/17/2017Other abychov5501/13/2017Fluid xnniwuyi40/19/2017ACC/AHA stage C heart failure with preserved ejection dhwocygf46/19/2017 Assessment & Plan (02/22/2023 4:13 PM EDT): [facility] II Continue GDMT- entresto- metoprolol and aldactone have been dc's r/t hypotension. Diuretic therapy- bumex 2 mg bid- Monitor daily weights, I&O, fluid restriction 1.5-2L/day, renal function and electrolytes- please maintain K+>4 and Mg > 2 Assessment & Plan (10/28/2022 3:44 PM EDT): [facility]- IV- SOB with rest and + Orthopnea, volume overloaded on exam despite Bumex 1 mg po tid and increased renal function. Noted elevated rt sided pressures with RVSP 59 and dilated RV on Echo 09/21/22- She has h/o PE in the past and currently on ASA. CR was increasing on labs noted 10/26/22- CR 1.68/BUN 45 at admit was 1.23/ 38 Intractable migraine without status vrkjomvndnm57/24/2017 Assessment & Plan (10/28/2022 3:46 PM EDT): Headaches today and to be evaluated in ED- worst H/A I have ever had. Displacement of lumbar intervertebral disc without gcwldnxgdy44/20/2017 Ifdedrpjcwpv04/20/2017Low back pain08/15/2016Lumbosacral ycyqwvgbhayhy04/20/2017 Lumbosacral spondylosis without uqwqrsooug17/20/2017Chronic kidney disease 07/21/2016Coronary uaofieploriykaau03/02/2016 Assessment & Plan (02/22/2023 4:14 PM EDT): Coronary artery disease is stable Continue GDMT continue risk factor modifications- heart healthy diet, regular exercise as tolerated and continue all medications. Assessment & Plan (10/28/2022 3:45 PM EDT): Coronary artery disease is stable Continue GDMT Abnormal weight loss03/18/2016H/O gastric mplzrl8303/18/2016Anemia due to vitamin B12 uiprdojqgt85/23/2016Benign essential wxmnyzpmpkvr38/04/2014 Assessment & Plan (10/28/2022 3:45 PM EDT): Hypertension is uncontrolled with c/o worst headache ever- recommended pt to be evaluated in ED Edema01/27/20143752Vopznzq20/04/5572Chzockpsnaye92/04/7400Elrsucpvnksdzw38/04/2014 Bbjqudvg03/04/2014Transient ischemic ysvhvq8901/27/2014Seizure rfheedli41/04/2014 History of DVT of lower hjmdemwtq96/01/2013Cerebral artery occlusion with cerebral rgyefwaohi63/01/2012 Encounters DateTypeDepartmentCare IyxgIazbttmciaf68/03/2025 1:15 PM ESTOffice Visit [facility] [address] [place] [phone] Mark Hidalgo MD Preop cardiovascular exam (Primary Dx); Chronic diastolic congestive heart failure (CMS/HCC); Primary hypertension; Pulmonary hypertension (CMS/HCC); Lymphedema; History of DVT of lower recsntpmg43/14/2025 11:10 AM EDTFollow-Up [facility] [address] [place] [address] [place] [address] Rojas Butterfield MD Rotator cuff arthropathy of left shoulder (Primary Dx); Glenohumeral xpcitejyt81/14/2025Orders Only [facility] [place] [address] Rosa Isela Martinez RN S/P reverse total shoulder arthroplasty, left (Primary Dx); Biceps tendinosis of left shoulderfrom Last 3 Months Immunizations ImmunizationAdministration DatesNext DueCovid (Pfizer) Bivalent Booster =>12 YRS 04/07/2022Hep B, adult10/27/2006,08/01/2006Influenza, High Dose Seasonal, Preservative Free05/30/2022,05/04/2017Influenza, injectable, MDCK, preservative free, phafzekppqae47/29/2021,04/03/2020Influenza, injectable, quadrivalent, preservative free04/03/2018Influenza, recombinant, quadrivalent, injectable, preservative free04/07/2022Influenza, seasonal, bknfpagqzs75/23/2020,03/26/2020 Pneumococcal Conjugate PCV 3Pneumococcal Polysaccharide PPV23 04/12/2016Unspecified Sars-Cov-2 Mnxzkpdoirt93/01/2021,08/27/2020Zoster, Zonpltjhzyc67/24/2023,04/07/2022 Family History Medical HistoryRelationNameCommentsHeart failureFatherStrokeMotherRelationName StatusCommentsBrotherAliveFatherDeceasedMotherDeceasedSisterDeceased Social History Tobacco UseTypesPacks/DayYears UsedDateSmoking Tobacco: NeverSmokeless Tobacco: Never Tobacco Cessation:Counseling Given: Not Answered Alcohol UseStandard Drinks/WeekCommentsNot Currently0 (1 standard drink = 0.6 oz pure alcohol)[facility] UtilitiesAnswerDate RecordedIn the past 12 months has the [employer], [employer], oil, or water [employer] threatened to shut off services in your [...] Places Lived in the Last YearNot on file02/02/2024In the last 12 months, was there a time when you did not have a steady place to sleep or slept in ashelter (including now)?No 07/28/2023Hunger Vital SignAnswerDate RecordedWithin the past 12 months, you worried that your food would run out before you got the money to buymore.Never true4Ran Out of Food in the Last YearNot on file4 CommentsUnknownSex and Gender InformationValueDate RecordedSex Assigned at Zplfst6912/15/2022 3:22 PM EDTLegal IqtGpjftl38/29/2022 9:25 PM EDTGender Identity Ryoacw6212/15/2022 3:22 PM EDTSexual OrientationHeterosexual or Qzaovoni66/22/2023 3:22 PM EDT Last Filed Vital Signs Vital SignReadingTime TakenCommentsBlood Ihrlnbrc172/8904/28/2025 1:35 PM EST Fukoi225104/28/2025 1:35 PM VGSVkofqdiahzo25.8 ??C (98.2 ??F)08/03/2023 10:55 AM ESTRespiratory Nhge181308/03/2023 10:55 AM ESTOxygen Zvkirtqrwu718%04/28/2025 1:35 PM ESTInhaled Oxygen Concentration--Oqmwsa70.6 kg (182 lb)04/28/2025 1:35 PM EST Ayjxox837.5 cm (5' 2 )04/28/2025 1:35 PM ESTBody Mass Index33.29106/28/2024 1:35 PM EST Plan of Treatment DateTypeDepartmentCare Team (Latest Contact Info)Qvvlcpkskqn67/24/2025 11:00 AM ESTPre-Admission Testing [facility] Pre-Anesthesia Clinic [address] [facility] [place] [phone] 05/28/2025 3:30 PM ESTHospital Encounter [facility] Main Operating Room [address] [place] [address] Rojas Butterfield MD [address] [place] [address] 05/28/2025 3:30 PM EST - 05/28/2025 6:30 PM ESTSurgery [facility] Main Operating Room [address] [place] [address] Rojas Butterfield MD [address] [place] [address] REVERSE TOTAL SHOULDER ARTHROPLASTY [24885 (CPT??)]06/10/2025 11:00 AM ESTOffice Visit [facility] [address] [place] [address] [place] [address] Rojas Buttefrield MD [address] [place] [address] NamePriorityAssociated DiagnosesDate/TimeARTHROPLASTY, SHOULDER, TOTAL S/P reverse total shoulder arthroplasty, left Biceps tendinosis of left shoulder 05/28/2025 3:30 PM ESTTENODESIS, BICEPS S/P reverse total shoulder arthroplasty, left Biceps tendinosis of left shoulder 05/28/2025 3:30 PM ESTHealth MaintenanceDue DateLast DoneCommentsCT Colonography 4566Cltpfzzwrzl1962Colorectal Cancer Smsileuco1962FIT-DNA 1962FIT1962FOBT1962Medicare Annual Wellness (AWV)1962 Joappflkoozvu1962Depression Zbstkpcjh30/31/1974Pap Smear1983Adult Qyvcuqi2602/24/1984Cervical Cancer Icgcetddm98/31/1992HPV/Vssptl8902/24/1992 Eahndrgza77/31/2002COVID-19 Vaccine ( season), 04/07/2022, 09/24/2020, Additional history existsZoster VaccinesCompleted 08/19/2022, 04/07/2022neumococcal Vaccine: Pediatrics (0 to 5 Years) and At- Risk Patients (6 to 64 Years)Ofmdjfbbc57/24/2025, 08/19/2022, 04/12/2016, Additional history existsInfluenza BldfadsSwnartdeu98/06/2025, 09/16/2024, 03/11/2023, Additional history existsHIB VaccinesAged OutNo longer eligible based on patient's age to complete this topicHPV VaccinesAged OutNo longer eligible based on patient's age to complete this topicIPV VaccinesAged OutNo longer eligible based on patient's age to complete this topicMeningococcal B VaccineAged OutNo longer eligible based on patient's age to complete this topic Meningococcal VaccineAged OutNo longer eligible based on patient's age to complete this topicRotavirus VaccinesAged OutNo longer eligible based on patient's age to complete this topic Procedures Procedure NamePriorityDate/TimeAssociated DiagnosisCommentsECG 12 LEAD UNIT ECZRAIGXCKwehtbs62/03/2025 1:44 PM EST Preop cardiovascular exam from Last 3 Months Results * ECG 12 lead unit performed (04/28/2025 1:44 PM EST)Specimen (Source)Anatomical Location / LateralityCollection Method / VolumeCollection TimeReceived Time Narrative Authorizing ProviderResult TypeResult StatusGeorge Gwen PATEL ORDERABLES Final Result from Last 3 Months Insurance Advance Directives * Full Code (Latest Code Status on File) Date ActivatedDate InactivatedComments07/28/2023 7:21 PM2 5:22 PM Care Teams Team MemberRelationshipSpecialtyStart DateEnd Date Yuri Godinez MD [address] [facility] [place] [address] [facility]10/06/22
--- OUTSIDE RECORDS SUMMARY | 2025-05-11 01:23 | XMS_ITS | Patient Health Record ---
Author Organization [facility] Address [address] [place] [address] Care Team Providers Care Dumper Name Role Phone Yuri Godinez Primary Care Provider Loi Rodas Unavailable [phone] Allergies Allergen (clinical drug ingredient) Drug/Non Drug [...] alcohol in the p ast year? No Eylmos1QuujriiisfdfhwYdmxxnzqMrxscvq Control (Standard) Question Answer Notes Tobacco use: Nonsmoker Problems Problem Type SNOMED Code ICD Code Onset Dates Problem Status W/U Status Risk Notes Problem Cervical spinal stenosis (14182051) Cervi kale spinal stenosis (M48.02) ActiveconfirmedProblemCervical myelopathy (906313297)Cervical myelopathy (G95.9) ActiveconfirmedProblemOsteoarthritis of knee (036726545)Primary osteoarthritis of left knee (M17.12)ActiveconfirmedProblemLocalized, primary osteoarthritis of the shoulder region (123441345)Primary osteoarthritis, left shoulder (M19.012) ActiveconfirmedProblemUnspecified nondisplaced fracture of second cervical vertebra, initial encounter for closed fracture (S12.101A)ActiveconfirmedProblem Unspecified nondisplaced fracture of second cervical vertebra, subsequent encounter for fracture with routine healing (S12.101D)ActiveconfirmedProblem Sciatica (45698932)Sciatica of left side (M54.32)ActiveconfirmedProblemFall ()Fall, initial encounter (W19.XXXA)ActiveconfirmedProblemNeurogenic claudication (202019482)Lumbar stenosis with neurogenic claudication (M48.062) ActiveconfirmedProblemNontraumatic rupture of muscle or tendon structure of rotator cuff of left shoulder (disorder) (5260433595833768)Tear of left rotator cuff, unspecified tear extent, unspecified whether traumatic (M75.102)Active confirmed Plan Of Treatment Pending Test Test Name Order Date CT Cervical Spine W/O Contrast SCC- KNEE 4 VIEW LEFT-35155 12/18/2023 MRI : Cervical Spine W/O Contrast - 7214 1 10/27/2023 MRI : Cervical Spine W/O Contrast - 7214 1 01/12/2024 Insurance Providers Payer Name Payer Address Payer Phone Subscriber Number Group Number Insured Name Patient Relationship to Insured Coverage Start Date Coverage End Date MEDICARE UHC DUAL COMPLETE [address] [place] [address] [id number] JOSE CLEMENTS Self - [facility] MedicaidP [address] [place] [id number] Mar CLEMENTSf - patient is the insured [...]
--- OUTSIDE RECORDS SUMMARY | 2025-05-11 01:23 | XMS_ITS | Clinical Summary ---
Author Organization [facility] Address [address] [place] [address] Care Team Providers Care Mortgage Counselor Name Role Phone Yuri Godinez MD Primary Care Provider [phone] Allergies Active AllergyReactionsCriticalityNoted DateCommentsAmoxicillin-Pot Clavulanate Unknown,GI intolerance,Diarrhea,Nausea And JhoycbhzFek59/19/2014Gabapentin 10/10/20228142AalmutCrophaj52/04/2023ovidone AcsweeNddchmh15/04/2023 Sulfamethoxazole-UpywipsairktQsupdat12/04/2023 Medications MedicationSigDispense QuantityRefillsLast FilledStart DateEnd DateStatus Fluticasone-Salmeterol [...] ADULTS PO) multivitaminActive Lancets (OneTouch Delica Plus Aikmso88N) misc OneTouch Delica Plus Lancet 33 gaugeActive B Complex Vitamins (VITAMIN B COMPLEX PO) Daily.Active albuterol HFA (Ventolin HFA) 90 mcg/act inhaler if needed.Active amitriptyline (Elavil) 150 MG tablet amitriptyline 150 mg tabletActive nzatcpjxww-datqdzjseqjon-yrxdosch-codeine (Fioricet W/Codeine) 57-203-53-30 MG capsule every 6 (six) hours.Active calcium acetate (Phoslo) 667 MG capsule calcium acetate(phosphate binders) 667 mg kfblenl3009/29/2022ctive calcium carbonate (Os-Gabriel) 1250 (500 Ca) MG [...] MG tablet metoprolol tartrate 50 mg tabletActive xankcsyr-bhicqiypn-vqrTPKKPnxsxy (Maxitrol) 0.1 % ophthalmic suspension mneyswct-gwmscrzok-volajtgd 3.5 mg/mL-10,000 unit/mL-0.1% eye dropsActive ondansetron ODT (Zofran-ODT) 4 MG disintegrating tablet ondansetron 4 mg disintegrating tabletActive Entresto 97-103 MG tablet Take 1 tablet by mouth in the morning and 1 tablet in the evening.Active tiZANidine (Zanaflex) 4 MG tablet tizanidine 4 mg tabletActive Active Problems ProblemNoted DateDiagnosed DateAbnormal blood notyonjaz64/04/2023nxiety 11/27/20220029Hypxhosixs28/04/2023erebrovascular accident (CVA)11/27/2022hronic back pain11/27/2022hronic obstructive pulmonary ljjdode5411/27/2022onstipation 11/27/20223749Zgjzcfejnh16/04/2023ifficulty gndnizy9111/27/2022Functional neurologic xuyffbnis26/04/2023astroesophageal reflux dmqihnj3911/27/2022Hemiparesis due to old meoqlg1711/27/2022Hemiparesis, left11/27/2022History of total right knee qukxdxrgidc64/04/9256Bzaekxelfgnxgk39/04/1847Xwrpccfr89/04/2023Internal derangement of right qpztuvsi36/04/2023Lumbar paraspinal muscle spasm11/27/2022 Lumbar yckhoqxj33/04/2023Obesity (BMI 30-39.9)11/27/2022Neurogenic pain 11/27/2022Osteoarthritis of spine with radiculopathy, lumbar pitnmr5811/27/2022 Pain, lower afbjibnep68/04/2023Lateral femoral cutaneous neuropathy, left 11/27/2022lantar wart, left foot11/27/20224224Ucazwclgaextlg50/04/2023 Polyneuropathy associated with critical olmefvq7811/27/2022Seizure disorder 11/27/2022Spondylosis of lumbosacral kdyycl4211/27/2022Unilateral primary osteoarthritis, right knee11/27/2022 Immunizations ImmunizationAdministration DatesNext DueInfluenza, injectable, quadrivalent, preservative free04/03/2018Pneumococcal Polysaccharide TYVD9751 Family History Medical HistoryRelationNameCommentsDiabetesFatherHeart diseaseFatherHeart failureFatherHypertensionFatherStrokeFatherAnxiety disorderMotherCancerMother DepressionMotherDiabetesMotherHeart diseaseMotherHyperlipidemiaMother HypertensionMotherLung diseaseMotherRelationNameStatusCommentsFatherDeceased MotherAlive Social History Tobacco UseTypesPacks/DayYears UsedDateSmoking Tobacco: Never Assessed CommentsUnknownSex and Gender InformationValueDate RecordedSex Assigned at Not on fileLegal LfhHijygx63/15/2023 7:05 PM EDTGender IdentityNot on fileSexual OrientationNot on file Last Filed Vital Signs Vital SignReadingTime TakenCommentsBlood Ivomhpjw186/7001/ 12:00 PM EST Pulse--Temperature--Respiratory Rate--Oxygen Saturation--Inhaled Oxygen Concentration--Kddqkr57.2 kg (201 lb)12/10/2019 12:00 PM LPNWpkwvj510.6 cm (5' 4 )12/10/2019 12:00 PM EDTBody Mass Index34. 12:00 PM EDT Plan of Treatment Not on file Insurance Care Teams Team MemberRelationshipSpecialtyStart Date Yuri Godinez MD PCP - GeneralFamily Medicine11/28/22
--- OUTSIDE RECORDS SUMMARY | 2025-05-11 01:23 | XMS_ITS | Clinical Summary ---
Author Organization [facility] Address [id number] [place] [address] Care Team Providers Care Roller Operator Name Role Phone Yuri Godinez MD Primary Care Provider [phone] Allergies Active AllergyReactionsCriticalityNoted DateCommentsAmoxicillin-Pot Clavulanate Diarrhea,Abdominal Pain,Nausea And ElvemnmqFzq27/20/2017Povidone-Iodine 08/15/2016 PEELS TOP LAYER OF SKIN Sulfa (Sulfonamide Antibiotics)Pvynpacs52/20/2017 Medications MedicationSigDispense QuantityRefillsLast FilledStart DateEnd DateStatus butorphanol [...] by mouth 2 (two) times a day.Active khsvkukd-gwkf-CH-calcium &mins (THERAGRAN-M) 9 mg iron-400 mcg tablet Take 1 tablet by mouth daily.Active rizatriptan INSTRUCTIONAL MATERIAL DIRECTOR (MAXALT-INSTRUCTIONAL MATERIAL DIRECTOR) 10 mg disintegrating tablet Dissolve 10 mg [...] evening.Active Active Problems ProblemNoted DateDiagnosed DateStatus post gxohyoxrvivcq48/10/2020Stenosis of cervical spine06/05/2019 Overview (06/05/2019): Added automatically from request for surgery [id number] Tympanic membrane perforation, right07/31/2018Bilateral hearing loss07/31/2018 Arthritis of right knee08/11/2017Spinal stenosis, lumbar region, without neurogenic vfqpxwaevfuz78/20/2017Displacement of lumbar intervertebral disc without bvrnzvokho23/20/2017Pain in joint, pelvic region and thigh08/15/2016 Lumbosacral spondylosis without coqkkgndin96/20/2017Low back pain08/15/2016 Lumbosacral dfykajrg38/20/4108Nzxnfujwdjdq96/20/2017 Family History Medical HistoryRelationNameCommentsDiabetesFatherHeart diseaseFatherCOPDMother CancerMotherDiabetesMotherRelationNameStatusCommentsFatherDeceasedMotherAlive Social History Tobacco UseTypesPacks/DayYears UsedDateSmoking Tobacco: FormerSmokeless Tobacco: NeverAlcohol UseStandard Drinks/WeekCommentsYes0 (1 standard drink = 0.6 oz pure alcohol)very rare; special occasions onlyPHQ-2AnswerDate RecordedTotal Score0 08/28/2019ChildcareAnswerDate JbhrhgxsZfxydifgmMkdkpwj32/10/2019EmploymentAnswer Date RuzfdkxpYquykxwoalXirzdtp56/10/2019Purpose - LifeAnswerDate RecordedPurpose and direction in nukzCxjinvy87/10/2021CommentsNoSex and Gender InformationValueDate RecordedSex Assigned at BirthNot on fileLegal SexFemale 01/27/2015 11:57 AM EDTGender IdentityNot on fileSexual OrientationNot on file Last Filed Vital Signs Vital SignReadingTime TakenCommentsBlood Gcsgycpp349/8411/27/2019 11:12 AM EDT Yagsz124108/01/2019 1:43 PM JIOYnnzevjxfow73.5 ??C (97.7 ??F)08/01/2019 11:45 AM ESTRespiratory Bmma385608/01/2019 12:55 PM ESTOxygen Cjmpnmymhl35%08/01/2019 1:43 PM ESTInhaled Oxygen Concentration--Ttzfup70 kg (194 lb)11/27/2019 11:12 AM EDT Tzdfpj450.5 cm (5' 2 )11/27/2019 11:12 AM EDTBody Mass Index35.48011/27/2019 11:12 AM EDT Plan of Treatment Health MaintenanceDue DateLast DoneCommentsDepression Iuyxzimyw73/31/1974Tobacco Choipmzwn03/31/1974Adult BMI Goqxyjsup00/31/1980DTaP,Tdap and Td Vaccines (1 - Tdap)1981COVID-19 Vaccine (4 - season), 09/24/2020, 08/27/2020Influenza Hbblsvz42/, 05/30/2022, 04/07/2022, Additional history existsRSV ( or age 60+ yrs) (1 - 1-dose 75+ series)2037Zoster (Shingles) UeycvriLivzhnoky96/24/2023, 04/07/2022 Medical Devices ImplantedTypeAreaManufacturerDevice IdentifierShelf Expiration DateModel / Serial / LotSoft Tissue Device Statak 5.2m M - Sna - [id number] Implanted:Qty: 1 on 08/11/2017 [facility] KneeZimmer Lnbbkh7306/25/[id number] / NA / [id number] Bn Plc R+Ggnta 40gm Grn Rpl [id number] - Sna - [id number] Implanted:Qty: 1 on 08/11/2017 by [facility]Right: KneeZimmer [id number] / NA / [id number] Bn Plc R+Ggnta 40gm Grn Rpl [id number] - Sna - [id number] Implanted:Qty: 1 on 08/11/2017 by Patrick [facility] MD [facility]Right: KneeZimmer [id number] / NA / [id number] Bn Plc R+Ggnta 40gm Grn Rpl [id number] - Sna - [id number] Implanted:Qty: 1 on 08/11/2017 by [facility] MD [facility]Right: KneeZimmer [id number]/31/202144-9201-763-01 / NA / [id number] Aldrm Gft 2x4cm 6-12 Ea=1 Sheet=8 Cm2 - [id number] - [id number] Implanted:Qty: 8 on 08/01/2019 by [facility]: EarALLERGAN [id number] / [id number] / [id number]:AlloDerm Regenerative Tissue MatrixCmpt Ptlr 32mm Nxgn Alply Rpl [id number] - Sna - [id number] Implanted:Qty: 1 on 08/11/2017 by Patrick Lala MD at [facility] ImplantRight: KneeZimmer Zjvmem1303/25/202535-9986-661-32 / NA / [id number] Fem E Kn Rt Lpsflx Gndr Rpl [id number] - Sna - [id number] Implanted:Qty: 1 on 08/11/2017 by Patrick Lala MD at [facility] ImplantRight: KneeZimmer [id number] / NA / [id number] Artc 3-4 E-F 12mm Kn Fx Rpl [id number] - Sna - [id number] Implanted:Qty: 1 on 08/11/2017 by Patrick Lala MD at [facility] ImplantRight: KneeZimmer Irtqfq6701/23/202289-2887-695-12 / NA / [id number] Tib 52w85m5mo Nxgn Kn Cmnt Rpl [id number] + [id number] - Sna - [id number] Implanted:Qty: 1 on 08/11/2017 by [facility]late[facility]: KneeZimmer [id number]/31/2028 97-9284-828-02 / NA / [id number]:indwelling right chest port for ongoing iron infusionsCancellous Screw 4.0 - Sna - [id number] Implanted:Qty: 1 on 08/11/2017 [facility]crewRight: Gerardo [id number] / NA / NAPortDescription:right chest port for iron infusions Insurance Care Teams Team MemberRelationshipSpecialtyStart Date Yuri Godinez MD [facility]12/06/16
--- OUTSIDE RECORDS SUMMARY | 2025-05-11 01:23 | XMS_ITS | Patient Health Record ---
Author Organization The [facility] in [place] Address [address] [place] [address] Care Team Providers Care Contact Lens Technician Name Role Phone Vinay Godinez Primary Care Provider [phone] Ny Rae Unavailable [phone] Allergies Allergen (clinical drug ingredient) Drug/Non Drug Allergy documented on EMR Reaction Allergy Type Onset Date Status amoxicillin / clavulanate Augmentin vomiting Drug Aller gy Activepovidone-iodineBetadineblistersDrug AllergyActiveSubstance with sulfonamide structure and antibacterial mechanism of action (substance)Sulfa AntibioticsvomitingDrug AllergyActive Results Component Value Reference Range Notes Osmolality Reviewed date:07/04/2024 12:33:49 PM Interpretation: Performing Lab: Notes/Report: [facility] , Osmolality 285 280-301 mOsmol/kg Performed at: - [address] [id number] Spout Liner Helper: Nicolas Arenas MD, Phone: [phone] Performing Lab: see note - [facility] LBCBC AUTO DIFF Reviewed date:05/14/2024 08:03:43 PM Interpretation: Performing Lab: Notes/Report: The ,White Blood Count6.54.0-11.0 10 3/uLRed Blood Count3.334.20-5.40 10 6/uL Hemoglobin9.612.0-16.0 g/pHQtgubbbeko90.936.0-48.0 %Mean Corpuscular Rhhedr91.8 81.0-99.0 fLMean Corpuscular Nbwfjlaswn64.826.7-34.0 pgMean Corpuscular HGB Conc 31.129.9-35.2 g/dLRed Cell Distribution Width15.611.0-15.0 %Platelet Mtqel854 150-450 10 3/uLMean Platelet Volume9.19.5-13.5 fLNeutrophils Percent Auto73.8 43.0-75.0 %Lymphocytes Percent Auto13.120.5-60.0 %Monocytes Percent Auto8.81.7- 12.0 %Eosinophils Percent Auto3.70.9-7.0 %Basophils Percent Auto0.30.2-2.0 % Immature Granulocytes Pct Auto0.30.0-0.5 %Neutrophils Absolute Auto4.81.4-6.5 10 3/uLLymphocytes Absolute Auto0.91.2-3.8 10 3/uLMonocytes Absolute Auto0.60.3-0.8 10 3/uLEosinophils Absolute Auto0.20.0-0.7 10 3/uLBasophils Absolute Auto0.00.0- 0.1 10 3/uLImmature Granulocytes Abs Auto0.020.00-0.03 10 3/uLPerforming Lab:see noteML - The LBPROF 14(COMP METB) Reviewed date:05/14/2024 08:03:43 PM Interpretation: Performing Lab: Notes/Report: The ,Lxyleu878159-635 mmol/LPotassium4.43.5-5.1 mmol/SXhvuophe03786-273 mmol/LCarbon Bfxhfty76.721.0-32.0 mmol/LAnion Gap14.6Ormmaua4502-681 mg/dLBlood Urea Nitrogen 53.07.0-18.0 mg/dLCreatinine1.740.55-1.02 mg/dLEstimated GFR ( Ytdngku68 >=60 mL/min/1.73m 2Estimated GFR (Non- Ame30>=60 mL/min/1.73m 2BUN Creatinine Ratio30.7Iofxana2.58.5-10.1 mg/dLBilirubin Total0.20.2-1.0 mg/dL Aspartate Amino Leybcuukwga9571-33 U/LAlanine Vzpmvyicpyjdzrmn8034-12 U/L Alkaline Vxhcdubuhad15750-845 U/LTotal Protein6.96.4-8.2 g/dLAlbumin Level3.2 3.4-5.0 g/dLGlobulin3.7Albumin Globulin Ratio0.9Performing Lab:see noteML - [facility] LBOsmolality Reviewed date:05/20/2024 02:02:21 PM Interpretation: Performing Lab: Notes/Report: [facility] ,Ixhrjxyhch056340-919 mOsmol/kg Performed at: - [facility] [address] [id number] [employer] Helper: Nicolas Arenas MD, Phone: [phone] Performing Lab:see noteLC - [facility] LBCBC AUTO DIFF Reviewed date:05/22/2024 05:24:02 PM Interpretation: Performing Lab: Notes/Report: The ,White Blood Count5.54.0-11.0 10 3/uLRed Blood Count3.334.20-5.40 10 6/uL Hemoglobin9.512.0-16.0 g/xPJrbrfwyenh99.436.0-48.0 %Mean Corpuscular Kcqzxb35.3 81.0-99.0 fLMean Corpuscular Mkiefagixp08.526.7-34.0 pgMean Corpuscular HGB Conc 30.329.9-35.2 g/dLRed Cell Distribution Width16.411.0-15.0 %Platelet Tfisu131 150-450 10 3/uLMean Platelet Volume8.89.5-13.5 fLNeutrophils Percent Auto68.2 43.0-75.0 %Lymphocytes Percent Auto16.220.5-60.0 %Monocytes Percent Auto9.71.7- 12.0 %Eosinophils Percent Auto5.10.9-7.0 %Basophils Percent Auto0.40.2-2.0 % Immature Granulocytes Pct Auto0.40.0-0.5 %Neutrophils Absolute Auto3.81.4-6.5 10 3/uLLymphocytes Absolute Auto0.91.2-3.8 10 3/uLMonocytes Absolute Auto0.50.3-0.8 10 3/uLEosinophils Absolute Auto0.30.0-0.7 10 3/uLBasophils Absolute Auto0.00.0- 0.1 10 3/uLImmature Granulocytes Abs Auto0.020.00-0.03 10 3/uLPerforming Lab:[facility](COMP METB) Reviewed date:05/22/2024 05:24:02 PM Interpretation: Performing Lab: Notes/Report: The ,Sqdvzk137636-639 mmol/LPotassium4.53.5-5.1 mmol/WUcbhldlp82740-343 mmol/LCarbon Khdopqn76.821.0-32.0 mmol/LAnion Gap14.4Klmzccd5380-723 mg/dLBlood Urea Nitrogen 48.07.0-18.0 mg/dLCreatinine1.720.55-1.02 mg/dLEstimated GFR ( Aknapwd10 >=60 mL/min/1.73m 2Estimated GFR (Non- Ame30>=60 mL/min/1.73m 2BUN Creatinine Ratio27.0Qitajhk9.18.5-10.1 mg/dLBilirubin Total0.20.2-1.0 mg/dL Aspartate Amino Imixddlrvth5006-49 U/LAlanine Jresvcguiuzxvzsw1312-18 U/L Alkaline Lgfdivpuemd07510-696 U/LTotal Protein6.66.4-8.2 g/dLAlbumin Level3.2 3.4-5.0 g/dLGlobulin3.4Albumin Globulin Ratio0.9Performing Lab:see note - [facility] LBOsmolality Reviewed date:05/26/2024 12:15:00 PM Interpretation: Performing Lab: Notes/Report: [facility] ,[id number] mOsmol/kg Performed at: [facility] [address] [id number] [employer] Helper: Nicolas Arenas MD, Phone: [phone] Performing Lab:see note - [facility] LBCBC AUTO DIFF Reviewed date:05/28/2024 08:26:27 PM Interpretation: Performing Lab: Notes/Report: [facility] ,White Blood Count6.84.0-11.0 10 3/uLRed Blood Count3.384.20-5.40 10 6/uL Hemoglobin9.712.0-16.0 g/fHFoarkxyscd93.636.0-48.0 %Mean Corpuscular Nuqqxt06.5 81.0-99.0 fLMean Corpuscular Zvqibcivnq09.726.7-34.0 pgMean Corpuscular HGB Conc 30.729.9-35.2 g/dLRed Cell Distribution Width16.511.0-15.0 %Platelet Puwmu971 150-450 10 3/uLMean Platelet Volume9.49.5-13.5 fLNeutrophils Percent Auto77.1 43.0-75.0 %Lymphocytes Percent Auto9.620.5-60.0 %Monocytes Percent Auto9.11.7- 12.0 %Eosinophils Percent Auto3.50.9-7.0 %Basophils Percent Auto0.30.2-2.0 % Immature Granulocytes Pct Auto0.40.0-0.5 %Neutrophils Absolute Auto5.31.4-6.5 10 3/uLLymphocytes Absolute Auto0.71.2-3.8 10 3/uLMonocytes Absolute Auto0.60.3-0.8 10 3/uLEosinophils Absolute Auto0.20.0-0.7 10 3/uLBasophils Absolute Auto0.00.0- 0.1 10 3/uLImmature Granulocytes Abs Auto0.030.00-0.03 10 3/uLPerforming Lab:see noteML - The LBPROF 14(COMP METB) Reviewed date:05/28/2024 08:26:27 PM Interpretation: Performing Lab: Notes/Report: The ,Ydfmji190016-260 mmol/LPotassium4.43.5-5.1 mmol/ZMcmhgmcy74498-928 mmol/LCarbon Ribztec11.321.0-32.0 mmol/LAnion Gap14.8Icgrhdy97293-237 mg/dLBlood Urea Tkffnwrk02.07.0-18.0 mg/dLCreatinine1.980.55-1.02 mg/dLEstimated GFR ( Zasqqod92>=60 mL/min/1.73m 2Estimated GFR (Non- Ame26>=60 mL/min/1.73m 2 BUN Creatinine Ratio32.1Dahsbke5.68.5-10.1 mg/dLBilirubin Total0.20.2-1.0 mg/dL Aspartate Amino Uegqrhoandt9433-99 U/LAlanine Govgjaalnfwcmpfb5806-47 U/L Alkaline Marrqnavzzb53936-049 U/LTotal Protein7.26.4-8.2 g/dLAlbumin Level3.3 3.4-5.0 g/dLGlobulin3.9Albumin Globulin Ratio0.8Performing Lab:see noteML - [facility] LBOsmolality Reviewed date:05/30/2024 12:43:32 PM Interpretation: Performing Lab: Notes/Report: [facility] ,[id number] mOsmol/kg Performed at: [facility] [address] [id number] [employer] Helper: Nicolas Arenas MD, Phone: [phone] Performing Lab:see note - [facility] LBCBC AUTO DIFF Reviewed date:06/12/2024 03:53:07 PM Interpretation: Performing Lab: Notes/Report: [facility] ,White Blood Count6.64.0-11.0 10 3/uLRed Blood Count3.524.20-5.40 10 6/uL Xodfphlcao20.012.0-16.0 g/qZZobwncukzr54.836.0-48.0 %Mean Corpuscular Mzprqg48.2 81.0-99.0 fLMean Corpuscular Qpaysllcew18.426.7-34.0 pgMean Corpuscular HGB Conc 30.529.9-35.2 g/dLRed Cell Distribution Width17.111.0-15.0 %Platelet Uvnle531 150-450 10 3/uLMean Platelet Volume8.89.5-13.5 fLNeutrophils Percent Auto63.2 43.0-75.0 %Lymphocytes Percent Auto23.820.5-60.0 %Monocytes Percent Auto8.01.7- 12.0 %Eosinophils Percent Auto3.90.9-7.0 %Basophils Percent Auto0.60.2-2.0 % Immature Granulocytes Pct Auto0.50.0-0.5 %Neutrophils Absolute Auto4.21.4-6.5 10 3/uLLymphocytes Absolute Auto1.61.2-3.8 10 3/uLMonocytes Absolute Auto0.50.3-0.8 10 3/uLEosinophils Absolute Auto0.30.0-0.7 10 3/uLBasophils Absolute Auto0.00.0- 0.1 10 3/uLImmature Granulocytes Abs Auto0.030.00-0.03 10 3/uLPerforming Lab:see noteML - [facility] LBPROF 14(COMP METB) Reviewed date:06/12/2024 03:53:07 PM Interpretation: Performing Lab: Notes/Report: The ,Jyasjw380072-349 mmol/LPotassium4.53.5-5.1 mmol/KWukivrhs32479-670 mmol/LCarbon Fixapdj01.321.0-32.0 mmol/LAnion Gap14.4Diblvtc2323-298 mg/dLBlood Urea Nitrogen 71.07.0-18.0 mg/dLCreatinine2.020.55-1.02 mg/dLEstimated GFR ( Wanzdnp98 >=60 mL/min/1.73m 2Estimated GFR (Non- Ame25>=60 mL/min/1.73m 2BUN Creatinine Ratio35.1Ktkabra7.68.5-10.1 mg/dLBilirubin Total0.20.2-1.0 mg/dL Aspartate Amino Dtfsslhoswe5847-42 U/LAlanine Xlebdlqpwxvbuqrf5437-62 U/L Alkaline Tpvkizyoivz54520-029 U/LTotal Protein7.36.4-8.2 g/dLAlbumin Level3.4 3.4-5.0 g/dLGlobulin3.9Albumin Globulin Ratio0.9Performing Lab:see noteML - [facility] LBOsmolality Reviewed date:06/17/2024 07:08:27 PM Interpretation: Performing Lab: Notes/Report: [facility] ,Wlhijhlixq119122-558 mOsmol/kg Performed at: - [facility] [id number] Sp[employer] Liner Helper: Nicolas Arenas MD, Phone: [phone] Performing Lab:see noteLC - [facility] LBCBC AUTO DIFF Reviewed date:07/02/2024 03:26:48 PM Interpretation: Performing Lab: Notes/Report: The ,White Blood Count4.24.0-11.0 10 3/uLRed Blood Count3.564.20-5.40 10 6/uL Zjilxanlxe97.412.0-16.0 g/lPUyeznimyjm16.236.0-48.0 %Mean Corpuscular Dxgvbc75.3 81.0-99.0 fLMean Corpuscular Ikovhsweme54.226.7-34.0 pgMean Corpuscular HGB Conc 31.329.9-35.2 g/dLRed Cell Distribution Width16.411.0-15.0 %Platelet Mceic254 150-450 10 3/uLMean Platelet Volume9.59.5-13.5 fLNeutrophils Percent Auto56.9 43.0-75.0 %Lymphocytes Percent Auto28.820.5-60.0 %Monocytes Percent Auto11.01.7- 12.0 %Eosinophils Percent Auto2.40.9-7.0 %Basophils Percent Auto0.20.2-2.0 % Immature Granulocytes Pct Auto0.70.0-0.5 %Neutrophils Absolute Auto2.41.4-6.5 10 3/uLLymphocytes Absolute Auto1.21.2-3.8 10 3/uLMonocytes Absolute Auto0.50.3-0.8 10 3/uLEosinophils Absolute Auto0.10.0-0.7 10 3/uLBasophils Absolute Auto0.00.0- 0.1 10 3/uLImmature Granulocytes Abs Auto0.030.00-0.03 10 3/uLPerforming Lab:see noteML - The LBPROF 14(COMP METB) Reviewed date:07/02/2024 03:26:48 PM Interpretation: Performing Lab: Notes/Report: The ,Kxskii251674-978 mmol/LPotassium3.23.5-5.1 mmol/QSxzyjvgu20368-388 mmol/LCarbon Ahxigum44.821.0-32.0 mmol/LAnion Gap13.3Pycwnqo8421-538 mg/dLBlood Urea Nitrogen 47.07.0-18.0 mg/dLCreatinine1.680.55-1.02 mg/dLEstimated GFR ( Tumacfz29 >=60 mL/min/1.73m 2Estimated GFR (Non- Ame31>=60 mL/min/1.73m 2BUN Creatinine Ratio28.9Nzonroj0.98.5-10.1 mg/dLBilirubin Total0.30.2-1.0 mg/dL Aspartate Amino Vqvveljshom2307-51 U/LAlanine Qcydrhmdsckvohxd4187-15 U/L Alkaline Gcupmcfdbue67487-486 U/LTotal Protein6.06.4-8.2 g/dLAlbumin Level2.8 3.4-5.0 g/dLGlobulin3.2Albumin Globulin Ratio0.9Performing Lab:see noteML - [facility] LBCBC AUTO DIFF Reviewed date:07/09/2024 03:58:21 PM Interpretation: Performing Lab: Notes/Report: The ,White Blood Count9.94.0-11.0 10 3/uLRed Blood Count3.974.20-5.40 10 6/uL Eieamrhcfh05.512.0-16.0 g/dDYdfxmdcfgz52.536.0-48.0 %Mean Corpuscular Ctuhxo05.5 81.0-99.0 fLMean Corpuscular Sbvycnhxhs57.026.7-34.0 pgMean Corpuscular HGB Conc 30.729.9-35.2 g/dLRed Cell Distribution Width16.511.0-15.0 %Platelet Iudtl124 150-450 10 3/uLMean Platelet Volume8.99.5-13.5 fLNeutrophils Percent Auto70.6 43.0-75.0 %Lymphocytes Percent Auto17.720.5-60.0 %Monocytes Percent Auto7.81.7- 12.0 %Eosinophils Percent Auto1.90.9-7.0 %Basophils Percent Auto0.60.2-2.0 % Immature Granulocytes Pct Auto1.40.0-0.5 %Neutrophils Absolute Auto7.01.4-6.5 10 3/uLLymphocytes Absolute Auto1.81.2-3.8 10 3/uLMonocytes Absolute Auto0.80.3-0.8 10 3/uLEosinophils Absolute Auto0.20.0-0.7 10 3/uLBasophils Absolute Auto0.10.0- 0.1 10 3/uLImmature Granulocytes Abs Auto0.140.00-0.03 10 3/uLPerforming Lab:[facility] LBPROF 14(COMP METB) Reviewed date:07/09/2024 03:58:21 PM Interpretation: Performing Lab: Notes/Report: The ,Fshvhn015050-089 mmol/LPotassium4.83.5-5.1 mmol/FWzhgledg05184-894 mmol/LCarbon Ftvhlot96.021.0-32.0 mmol/LAnion Gap14.4Niydaua1185-582 mg/dLBlood Urea Nitrogen 48.07.0-18.0 mg/dLCreatinine2.260.55-1.02 mg/dLEstimated GFR ( Quwlrhi22 >=60 mL/min/1.73m 2Estimated GFR (Non- Ame22>=60 mL/min/1.73m 2BUN Creatinine Ratio21.1Tvsiezf4.48.5-10.1 mg/dLBilirubin Total0.20.2-1.0 mg/dL Aspartate Amino Pfghgpcbzsg3414-20 U/LAlanine Suksftozzfyhqvhr0435-66 U/L Alkaline Bykdvfscdga06987-667 U/LTotal Protein7.26.4-8.2 g/dLAlbumin Level3.5 3.4-5.0 g/dLGlobulin3.7Albumin Globulin Ratio0.9Performing Lab:see note - [facility] LBOsmolality Reviewed date:07/12/2024 10:41:16 AM Interpretation: Performing Lab: Notes/Report: [facility] ,Npswdlksta179882-556 mOsmol/kg Performed at: - [facility] [id number] [employer] Helper: Nicolas Arenas MD, Phone: [phone] Performing Lab:see note - [facility] LBCBC AUTO DIFF Reviewed date:07/18/2024 12:12:59 PM Interpretation: Performing Lab: Notes/Report: The ,White Blood Count5.74.0-11.0 10 3/uLRed Blood Count3.664.20-5.40 10 6/uL Glqlwcayrj34.512.0-16.0 g/jAAjhoizjeml22.136.0-48.0 %Mean Corpuscular Cxitbk35.9 81.0-99.0 fLMean Corpuscular Sxoxgrtbfr50.726.7-34.0 pgMean Corpuscular HGB Conc 29.929.9-35.2 g/dLRed Cell Distribution Width15.911.0-15.0 %Platelet Abvpw877 150-450 10 3/uLMean Platelet Volume8.99.5-13.5 fLNeutrophils Percent Auto70.9 43.0-75.0 %Lymphocytes Percent Auto16.420.5-60.0 %Monocytes Percent Auto8.91.7- 12.0 %Eosinophils Percent Auto2.80.9-7.0 %Basophils Percent Auto0.70.2-2.0 % Immature Granulocytes Pct Auto0.30.0-0.5 %Neutrophils Absolute Auto4.11.4-6.5 10 3/uLLymphocytes Absolute Auto0.91.2-3.8 10 3/uLMonocytes Absolute Auto0.50.3-0.8 10 3/uLEosinophils Absolute Auto0.20.0-0.7 10 3/uLBasophils Absolute Auto0.00.0- 0.1 10 3/uLImmature Granulocytes Abs Auto0.020.00-0.03 10 3/uLPerforming Lab:see noteML - The LBPROF 14(COMP METB) Reviewed date:07/18/2024 05:32:07 PM Interpretation: Performing Lab: Notes/Report: The ,Rnzajj962921-800 mmol/LPotassium4.43.5-5.1 mmol/OObkrcygj10639-875 mmol/LCarbon Drejpsh62.321.0-32.0 mmol/LAnion Gap15.1Gsisqhs1678-207 mg/dLBlood Urea Nitrogen 51.07.0-18.0 mg/dLCreatinine1.770.55-1.02 mg/dLEstimated GFR ( Wzrygcd06 >=60 mL/min/1.73m 2Estimated GFR (Non- Ame29>=60 mL/min/1.73m 2BUN Creatinine Ratio28.2Erlcnle4.48.5-10.1 mg/dLBilirubin Total0.10.2-1.0 mg/dL Aspartate Amino Ghmtlevsfok3401-52 U/LAlanine Xdigdscbhsklhdon7017-26 U/L Alkaline Drvyhgcfnct90776-031 U/LTotal Protein6.86.4-8.2 g/dLAlbumin Level3.1 3.4-5.0 g/dLGlobulin3.7Albumin Globulin Ratio0.8Performing Lab:see noteML - [facility] LBOsmolality Reviewed date:07/21/2024 12:00:58 PM Interpretation: Performing Lab: Notes/Report: [facility] ,Lnmudpvjbs261536-949 mOsmol/kg Performed at: - [facility] [id number] [employer] Helper: Nicolas Arenas MD, Phone: [phone] Performing Lab:see note - [facility] LBCBC AUTO DIFF Reviewed date:07/27/2024 04:09:36 PM Interpretation: Performing Lab: Notes/Report: [facility] ,White Blood Count6.54.0-11.0 10 3/uLRed Blood Count3.684.20-5.40 10 6/uL Sczwvpteje07.012.0-16.0 g/kYRwhzjufskm68.536.0-48.0 %Mean Corpuscular Jjkjtc68.5 81.0-99.0 fLMean Corpuscular Gcyznppnqa17.926.7-34.0 pgMean Corpuscular HGB Conc 31.029.9-35.2 g/dLRed Cell Distribution Width15.611.0-15.0 %Platelet Sxcpz915 150-450 10 3/uLMean Platelet Volume8.99.5-13.5 fLNeutrophils Percent Auto70.6 43.0-75.0 %Lymphocytes Percent Auto18.320.5-60.0 %Monocytes Percent Auto7.21.7- 12.0 %Eosinophils Percent Auto2.80.9-7.0 %Basophils Percent Auto0.50.2-2.0 % Immature Granulocytes Pct Auto0.60.0-0.5 %Neutrophils Absolute Auto4.61.4-6.5 10 3/uLLymphocytes Absolute Auto1.21.2-3.8 10 3/uLMonocytes Absolute Auto0.50.3-0.8 10 3/uLEosinophils Absolute Auto0.20.0-0.7 10 3/uLBasophils Absolute Auto0.00.0- 0.1 10 3/uLImmature Granulocytes Abs Auto0.040.00-0.03 10 3/uLPerforming Lab:see note - [facility] LBPROF 14(COMP METB) Reviewed date:07/27/2024 04:09:36 PM Interpretation: Performing Lab: Notes/Report: The ,Rpglcn020089-662 mmol/LPotassium4.43.5-5.1 mmol/BLvicsdgk09262-243 mmol/LCarbon Oiytuhu42.421.0-32.0 mmol/LAnion Gap13.4Fncevmt5660-712 mg/dLBlood Urea Nitrogen 45.07.0-18.0 mg/dLCreatinine1.840.55-1.02 mg/dLEstimated GFR ( Lalwggi75 >=60 mL/min/1.73m 2Estimated GFR (Non- Ame28>=60 mL/min/1.73m 2BUN Creatinine Ratio24.6Yvsjylj5.48.5-10.1 mg/dLBilirubin Total0.10.2-1.0 mg/dL Aspartate Amino Kunxhifeucy5003-68 U/LAlanine Qvirdtakrlaohnuu7837-95 U/L Alkaline Sdnfefqnyki68469-719 U/LTotal Protein7.06.4-8.2 g/dLAlbumin Level3.3 3.4-5.0 g/dLGlobulin3.7Albumin Globulin Ratio0.9Performing Lab:see note - [facility] LBOsmolality Reviewed date:07/29/2024 07:44:52 PM Interpretation: Performing Lab: Notes/Report: [facility] ,Qvwhnhxaob979260-176 mOsmol/kg Performed at: - [facility] [address] [id number] [employer] Helper: Nicolas Arenas MD, Phone: [phone] Performing Lab:see noteLC - [facility] LBCBC AUTO DIFF Reviewed date:08/04/2024 11:09:08 AM Interpretation: Performing Lab: Notes/Report: The ,White Blood Count6.44.0-11.0 10 3/uLRed Blood Count3.414.20-5.40 10 6/uL Mkaeftdmld25.212.0-16.0 g/xYSmjpegatue35.636.0-48.0 %Mean Corpuscular Mqlbwq61.6 81.0-99.0 fLMean Corpuscular Lssmrwkfau07.926.7-34.0 pgMean Corpuscular HGB Conc 31.329.9-35.2 g/dLRed Cell Distribution Width15.411.0-15.0 %Platelet Kwcxb042 150-450 10 3/uLMean Platelet Volume9.39.5-13.5 fLNeutrophils Percent Auto76.5 43.0-75.0 %Lymphocytes Percent Auto13.420.5-60.0 %Monocytes Percent Auto7.31.7- 12.0 %Eosinophils Percent Auto1.90.9-7.0 %Basophils Percent Auto0.30.2-2.0 % Immature Granulocytes Pct Auto0.60.0-0.5 %Neutrophils Absolute Auto4.91.4-6.5 10 3/uLLymphocytes Absolute Auto0.91.2-3.8 10 3/uLMonocytes Absolute Auto0.50.3-0.8 10 3/uLEosinophils Absolute Auto0.10.0-0.7 10 3/uLBasophils Absolute Auto0.00.0- 0.1 10 3/uLImmature Granulocytes Abs Auto0.040.00-0.03 10 3/uLPerforming Lab:see noteML - The LBPROF 14(COMP METB) Reviewed date:08/04/2024 11:09:08 AM Interpretation: Performing Lab: Notes/Report: The ,Ryhfbl870591-526 mmol/LPotassium4.43.5-5.1 mmol/KPqascuys95337-900 mmol/LCarbon Igrvbmt53.621.0-32.0 mmol/LAnion Gap14.5Hsibryr6060-773 mg/dLBlood Urea Nitrogen 68.07.0-18.0 mg/dLCreatinine2.370.55-1.02 mg/dLEstimated GFR ( Hbkxyto56 >=60 mL/min/1.73m 2Estimated GFR (Non- Ame21>=60 mL/min/1.73m 2BUN Creatinine Ratio28.0Rtxtqag9.28.5-10.1 mg/dLBilirubin Total0.10.2-1.0 mg/dL Aspartate Amino Ubjfepkiezd8333-65 U/LAlanine Vcirpsfphjmhqwbr4013-00 U/L Alkaline Txzfgeyslvc34810-889 U/LTotal Protein6.96.4-8.2 g/dLAlbumin Level3.2 3.4-5.0 g/dLGlobulin3.7Albumin Globulin Ratio0.9Performing Lab:see note - [facility] LBOsmolality Reviewed date:08/05/2024 01:00:46 PM Interpretation: Performing Lab: Notes/Report: [facility] ,[id number] mOsmol/kg Performed at: [address] [id number] [employer] Helper: Nicolas Arenas MD, Phone: [phone] Performing Lab:see note - [facility] LBXR HAND LT MIN 3V Reviewed date:08/05/2024 01:00:46 PM Interpretation: Performing Lab: Notes/Report: Source Facility: -[address] [place] [address] [place] [address] XRay Report Signed Patient: JOSE MOSER MR#: [id number] : 1960 Acct:[id number] Age/Sex: 64 / F ADM Date: 08/02/24 Loc: RAD Attending Dr: Angle Godinez M.D. Ordering Physician: Angle Godinez M.D. Date of Service: 08/02/24 Procedure(s): XR hand LT min 3V Accession Number(s): [id number] cc: Angle Godinez M.D. [facility] [place] [id number] Patient Name: JOSE MOSER MRN: [id number] date: 1960 Sex: F Assigned Patient Location: [facility] Current Patient Location: Accession/Order Number: [id number] Exam Date: 08/02/2024 12:30 Report Date: 08/05/2024 [...] Alcala M.D. Signed By: 08/05/2455 DD/ TD/TT: Beater Engineer Helper:CBC AUTO DIFF Reviewed date:08/25/2024 12:31:05 PM Interpretation: Performing Lab: Notes/Report: The ,White Blood Count6.94.0-11.0 10 3/uLRed Blood Count3.414.20-5.40 10 6/uL Rxulywzbab20.312.0-16.0 g/fXQyyomphvhh40.936.0-48.0 %Mean Corpuscular Dtlrbe27.5 81.0-99.0 fLMean Corpuscular Mveajhtpom83.226.7-34.0 pgMean Corpuscular HGB Conc 31.329.9-35.2 g/dLRed Cell Distribution Width14.211.0-15.0 %Platelet Izcxj457 150-450 10 3/uLMean Platelet Volume9.59.5-13.5 fLNeutrophils Percent Auto69.9 43.0-75.0 %Lymphocytes Percent Auto18.520.5-60.0 %Monocytes Percent Auto7.71.7- 12.0 %Eosinophils Percent Auto3.10.9-7.0 %Basophils Percent Auto0.40.2-2.0 % Immature Granulocytes Pct Auto0.40.0-0.5 %Neutrophils Absolute Auto4.81.4-6.5 10 3/uLLymphocytes Absolute Auto1.31.2-3.8 10 3/uLMonocytes Absolute Auto0.50.3-0.8 10 3/uLEosinophils Absolute Auto0.20.0-0.7 10 3/uLBasophils Absolute Auto0.00.0- 0.1 10 3/uLImmature Granulocytes Abs Auto0.030.00-0.03 10 3/uLPerforming Lab:see noteML - [facility] LBPROF 14(COMP METB) Reviewed date:08/25/2024 12:31:05 PM Interpretation: Performing Lab: Notes/Report: The ,Kopnpq614933-246 mmol/LPotassium4.23.5-5.1 mmol/BIofpgihe9796-876 mmol/LCarbon Raxcgvu00.921.0-32.0 mmol/LAnion Gap10.8Tpdjmvq6676-737 mg/dLBlood Urea Nitrogen 59.07.0-18.0 mg/dLCreatinine2.140.55-1.02 mg/dLEstimated GFR ( Rrzwwpz39 >=60 mL/min/1.73m 2Estimated GFR (Non- Ame23>=60 mL/min/1.73m 2BUN Creatinine Ratio27.3Dhdhomx8.08.5-10.1 mg/dLBilirubin Total0.10.2-1.0 mg/dL Aspartate Amino Zkfmvknrfyq5426-61 U/LAlanine Euoyyqibpdvozygc6170-88 U/L Alkaline Evsfrgfqkxb35186-297 U/LTotal Protein6.96.4-8.2 g/dLAlbumin Level3.2 3.4-5.0 g/dLGlobulin3.7Albumin Globulin Ratio0.9Performing Lab:see noteML - [facility] LBOsmolality Reviewed date:08/28/2024 09:03:48 PM Interpretation: Performing Lab: Notes/Report: [facility] ,Tjunnxphll798333-316 mOsmol/kg Performed at: - [facility] [id number] Spout Liner Helper: Nicolas Arenas MD, Phone: [phone] Performing Lab:see noteLC - [facility] LBCBC AUTO DIFF Reviewed date:09/01/2024 09:49:36 AM Interpretation: Performing Lab: Notes/Report: The ,White Blood Count6.74.0-11.0 10 3/uLRed Blood Count3.474.20-5.40 10 6/uL Vlfopxmhuc37.812.0-16.0 g/dOChkzktlher32.236.0-48.0 %Mean Corpuscular Pjmxji40.6 81.0-99.0 fLMean Corpuscular Pzngeacpas04.126.7-34.0 pgMean Corpuscular HGB Conc 31.629.9-35.2 g/dLRed Cell Distribution Width14.311.0-15.0 %Platelet Ykvpy628 150-450 10 3/uLMean Platelet Volume8.79.5-13.5 fLNeutrophils Percent Auto63.2 43.0-75.0 %Lymphocytes Percent Auto23.720.5-60.0 %Monocytes Percent Auto8.51.7- 12.0 %Eosinophils Percent Auto3.60.9-7.0 %Basophils Percent Auto0.40.2-2.0 % Immature Granulocytes Pct Auto0.60.0-0.5 %Neutrophils Absolute Auto4.31.4-6.5 10 3/uLLymphocytes Absolute Auto1.61.2-3.8 10 3/uLMonocytes Absolute Auto0.60.3-0.8 10 3/uLEosinophils Absolute Auto0.20.0-0.7 10 3/uLBasophils Absolute Auto0.00.0- 0.1 10 3/uLImmature Granulocytes Abs Auto0.040.00-0.03 10 3/uLPerforming Lab:see noteML - [facility] LBPROF 14(COMP METB) Reviewed date:09/01/2024 09:49:36 AM Interpretation: Performing Lab: Notes/Report: The ,Dqkqgp265080-564 mmol/LPotassium3.83.5-5.1 mmol/LJaenwmsi71444-892 mmol/LCarbon Cepulqh41.121.0-32.0 mmol/LAnion Gap13.0Tcybhjd5837-091 mg/dLBlood Urea Nitrogen 48.07.0-18.0 mg/dLCreatinine1.870.55-1.02 mg/dLEstimated GFR ( Qtbdxgo20 >=60 mL/min/1.73m 2Estimated GFR (Non- Ame27>=60 mL/min/1.73m 2BUN Creatinine Ratio25.6Rfjnwjg9.18.5-10.1 mg/dLBilirubin Total0.20.2-1.0 mg/dL Aspartate Amino Hypvqqkinli1593-66 U/LAlanine Vzecourtprrhybjv9810-20 U/L Alkaline Tpziqypdtwu58480-241 U/LTotal Protein7.26.4-8.2 g/dLAlbumin Level3.4 3.4-5.0 g/dLGlobulin3.8Albumin Globulin Ratio0.9Performing Lab:see note - [facility] LBOsmolality Reviewed date:09/03/2024 09:28:43 AM Interpretation: Performing Lab: Notes/Report: [facility] ,Uwedmgjmhr846309-269 mOsmol/kg Performed at: [address] [id number] Spout Liner Helper: Nicolas Arenas MD, Phone: [phone] Performing Lab:see note - [facility] LBCBC AUTO DIFF Reviewed date:09/05/2024 06:43:23 PM Interpretation: Performing Lab: Notes/Report: [facility] ,White Blood Count6.04.0-11.0 10 3/uLRed Blood Count3.424.20-5.40 10 6/uL Rcdvlonsvo87.612.0-16.0 g/oKFihrgqhgny26.636.0-48.0 %Mean Corpuscular Rhqgal47.2 81.0-99.0 fLMean Corpuscular Lbjeqrdavv09.026.7-34.0 pgMean Corpuscular HGB Conc 31.529.9-35.2 g/dLRed Cell Distribution Width14.211.0-15.0 %Platelet Owaof311 150-450 10 3/uLMean Platelet Volume9.09.5-13.5 fLNeutrophils Percent Auto67.2 43.0-75.0 %Lymphocytes Percent Auto22.420.5-60.0 %Monocytes Percent Auto7.71.7- 12.0 %Eosinophils Percent Auto2.00.9-7.0 %Basophils Percent Auto0.50.2-2.0 % Immature Granulocytes Pct Auto0.20.0-0.5 %Neutrophils Absolute Auto4.01.4-6.5 10 3/uLLymphocytes Absolute Auto1.31.2-3.8 10 3/uLMonocytes Absolute Auto0.50.3-0.8 10 3/uLEosinophils Absolute Auto0.10.0-0.7 10 3/uLBasophils Absolute Auto0.00.0- 0.1 10 3/uLImmature Granulocytes Abs Auto0.010.00-0.03 10 3/uLPerforming Lab:see noteML - [facility] LBPROF 14(COMP METB) Reviewed date:09/05/2024 06:43:23 PM Interpretation: Performing Lab: Notes/Report: The ,Jbbpfb517132-603 mmol/LPotassium3.83.5-5.1 mmol/TZwblormj1570-854 mmol/LCarbon Nsmqzrp51.521.0-32.0 mmol/LAnion Gap13.9Iszyjwu5609-697 mg/dLBlood Urea Nitrogen 53.07.0-18.0 mg/dLCreatinine2.050.55-1.02 mg/dLEstimated GFR ( Cbwyrjb42 >=60 mL/min/1.73m 2Estimated GFR (Non- Ame25>=60 mL/min/1.73m 2BUN Creatinine Ratio25.1Chcvjkn2.48.5-10.1 mg/dLBilirubin Total0.20.2-1.0 mg/dL Aspartate Amino Qmsairowefl0184-93 U/LAlanine Vuexriyipzmksood3958-86 U/L Alkaline Qgenfxlbthf70927-423 U/LTotal Protein7.16.4-8.2 g/dLAlbumin Level3.3 3.4-5.0 g/dLGlobulin3.8Albumin Globulin Ratio0.9Performing Lab:see noteML - [facility] LBOsmolality Reviewed date:09/08/2024 02:59:02 PM Interpretation: Performing Lab: Notes/Report: [facility] ,Mwgnjsxjvp614653-013 mOsmol/kg [address] [place], [place] [id number] Spout Liner Helper: Nicolas Arenas MD, Phone: [phone] Performed at: [facility] Performing Lab:see noteLC - [facility] LBCBC AUTO DIFF Reviewed date:09/11/2024 05:38:12 PM Interpretation: Performing Lab: Notes/Report: The ,White Blood Count4.84.0-11.0 10 3/uLRed Blood Count3.254.20-5.40 10 6/uL Hemoglobin9.912.0-16.0 g/dGYpqwvybtjg82.036.0-48.0 %Mean Corpuscular Dsdufl72.5 81.0-99.0 fLMean Corpuscular Dztbqefzlm29.526.7-34.0 pgMean Corpuscular HGB Conc 30.929.9-35.2 g/dLRed Cell Distribution Width14.011.0-15.0 %Platelet Qvtbj765 150-450 10 3/uLMean Platelet Volume9.09.5-13.5 fLNeutrophils Percent Auto63.2 43.0-75.0 %Lymphocytes Percent Auto21.320.5-60.0 %Monocytes Percent Auto11.61.7- 12.0 %Eosinophils Percent Auto2.90.9-7.0 %Basophils Percent Auto0.60.2-2.0 % Immature Granulocytes Pct Auto0.40.0-0.5 %Neutrophils Absolute Auto3.01.4-6.5 10 3/uLLymphocytes Absolute Auto1.01.2-3.8 10 3/uLMonocytes Absolute Auto0.60.3-0.8 10 3/uLEosinophils Absolute Auto0.10.0-0.7 10 3/uLBasophils Absolute Auto0.00.0- 0.1 10 3/uLImmature Granulocytes Abs Auto0.020.00-0.03 10 3/uLPerforming Lab:[facility] noteMar[facility] LBPROF 14(COMP METB) Reviewed date:09/11/2024 05:38:12 PM Interpretation: Performing Lab: Notes/Report: The ,Fwggan090883-899 mmol/LPotassium3.53.5-5.1 mmol/VEhfxartb38484-093 mmol/LCarbon Ylsqlet32.921.0-32.0 mmol/LAnion Gap12.1Xjtbjqm1087-310 mg/dLBlood Urea Nitrogen 58.07.0-18.0 mg/dLCreatinine2.190.55-1.02 mg/dLEstimated GFR ( Xxbvfdf08 >=60 mL/min/1.73m 2Estimated GFR (Non- Ame23>=60 mL/min/1.73m 2BUN Creatinine Ratio26.7Ugodess5.68.5-10.1 mg/dLBilirubin Total0.30.2-1.0 mg/dL Aspartate Amino Hifxymgwmgq3060-20 U/LAlanine Lothhrknlmejwgql8491-97 U/L Alkaline Hbvssncthrt78390-024 U/LTotal Protein7.16.4-8.2 g/dLAlbumin Level3.6 3.4-5.0 g/dLGlobulin3.5Albumin Globulin Ratio1.0Performing Lab:see noteMar[facility] LBOsmolality Reviewed date:09/16/2024 08:39:55 PM Interpretation: Performing Lab: Notes/Report: [facility] ,Rfdckulgaz356048-549 mOsmol/kg Performed at: [facility] Lab[address] [id number] Spout Liner Helper: Nicolas Arenas MD, Phone: [phone] Performing Lab:see note - [facility] LBBNP Reviewed date:09/16/2024 08:39:55 PM Interpretation: Performing Lab: Notes/Report: The ,NT Pro B Type Natriuretic Qahf864.0<=900.0 pg/mLPerforming Lab:see noteMar[facility] Hospital LBCBC AUTO DIFF Reviewed date:09/15/2024 07:34:53 PM Interpretation: Performing Lab: Notes/Report: The ,White Blood Count4.34.0-11.0 10 3/uLRed Blood Count3.184.20-5.40 10 6/uL Hemoglobin9.812.0-16.0 g/iDItababzykq83.436.0-48.0 %Mean Corpuscular Wgwemf92.7 81.0-99.0 fLMean Corpuscular Uhrovswbuk28.826.7-34.0 pgMean Corpuscular HGB Conc 31.229.9-35.2 g/dLRed Cell Distribution Width13.711.0-15.0 %Platelet Ifphf286 150-450 10 3/uLMean Platelet Volume8.89.5-13.5 fLNeutrophils Percent Auto59.3 43.0-75.0 %Lymphocytes Percent Auto22.420.5-60.0 %Monocytes Percent Auto14.81.7- 12.0 %Eosinophils Percent Auto2.80.9-7.0 %Basophils Percent Auto0.50.2-2.0 % Immature Granulocytes Pct Auto0.20.0-0.5 %Neutrophils Absolute Auto2.61.4-6.5 10 3/uLLymphocytes Absolute Auto1.01.2-3.8 10 3/uLMonocytes Absolute Auto0.60.3-0.8 10 3/uLEosinophils Absolute Auto0.10.0-0.7 10 3/uLBasophils Absolute Auto0.00.0- 0.1 10 3/uLImmature Granulocytes Abs Auto0.010.00-0.03 10 3/uLPerforming Lab:see noteML - The LBINFLUENZA A AND B AG Reviewed date:09/15/2024 07:34:53 PM Interpretation: Performing Lab: Notes/Report: The ,Influenza Virus A AntigenNegative Negative for Flu [...] of the test. Performing Lab:see noteML - [facility] LBLACTATE or LACTIC ACID Reviewed date:09/16/2024 08:39:55 PM Interpretation: Performing Lab: Notes/Report: The ,Lactate/Lactic Acid0.60.4-2.0 mmol/LPerforming Lab:see noteML - [facility] LBPROF 14(COMP METB) Reviewed date:09/16/2024 08:39:55 PM Interpretation: Performing Lab: Notes/Report: The ,Snuysa304215-039 mmol/LPotassium3.73.5-5.1 mmol/MKhdjrmcy3646-406 mmol/LCarbon Wilycbe35.421.0-32.0 mmol/LAnion Gap13.6Vmbrwqh0742-024 mg/dLBlood Urea Nitrogen 48.07.0-18.0 mg/dLCreatinine1.880.55-1.02 mg/dLEstimated GFR ( Uaflvty70 >=60 mL/min/1.73m 2Estimated GFR (Non- Ame27>=60 mL/min/1.73m 2BUN Creatinine Ratio25.1Ytptetg1.58.5-10.1 mg/dLBilirubin Total0.30.2-1.0 mg/dL Aspartate Amino Ivcymdvgzfw4204-98 U/LAlanine Hhcvshpsilethxys4111-25 U/L Alkaline Tpcxyxzjfba52774-231 U/LTotal Protein6.96.4-8.2 g/dLAlbumin Level3.2 3.4-5.0 g/dLGlobulin3.7Albumin Globulin Ratio0.9Performing Lab:see noteML - The LBBlood Culture 1 Reviewed date:09/22/2024 03:51:35 PM Interpretation: Performing Lab: Notes/Report: The ,Blood Culture 1See Below For Report Blood Culture 1 NG5D NO GROWTH AT 5 DAYS.^NO GROWTH AT 5 DAYS. Performing Lab:see noteML - [facility] LBBlood Culture 2 Reviewed date:09/22/2024 03:51:35 PM Interpretation: Performing Lab: Notes/Report: The ,Blood Culture 2See Below For Report Blood Culture 2 NG5D NO GROWTH AT 5 DAYS.^NO GROWTH AT 5 DAYS. Performing Lab:see noteML - [facility] LBProthrombin Time INR Reviewed date:09/16/2024 08:39:55 PM Interpretation: Performing Lab: Notes/Report: The ,Prothrombin Time10.99.0-11.6 secINR1.03 DESIRED INR: 2.0-3.0 CONDITIONS NOT LISTED BELOW 2.5-3.5 FOR PROSTHETIC HEART VALVE REPLACEMENT 2.5-3.5 RECURRENT THROMBOSIS Performing Lab:see noteML - [facility] LBTroponin I High Sensitivity Reviewed date:09/16/2024 08:39:55 PM Interpretation: Performing Lab: Notes/Report: The ,Troponin I High Wffdcexrvha08.14.0-51.3 pg/mL CUT-OFF POINTS HAVE BEEN ESTABLISHED BASED [...] OTHER DIAGNOSTIC AND CLINICAL INFORMATION. Performing Lab:see noteML - [facility] LBVenous Blood Gas Reviewed date:09/16/2024 08:39:55 PM Interpretation: Performing Lab: Notes/Report: The ,pH VBG7.3467.330-7.724NSZ1 VBG47.840.0-52.0 mmHgPerforming Lab:see noteML - [facility] VLQDYI-PuH-8 Ag* Reviewed date:09/15/2024 07:34:53 PM Interpretation: Performing Lab: Notes/Report: The ,SARS-CoV-2 AgNEGATIVENEGATIVE This test has not been [...] is revoked sooner. Performing Lab:see noteML - [facility] LBECG 12 lead Reviewed date:09/16/2024 08:39:55 PM Interpretation: Performing Lab: Notes/Report: Source Facility: [address] [address] [place] [address] Electrocardiograph Report Signed Patient: JOSE MOSER MR#: [id number] : 1960 Acct:[id number] Age/Sex: 64 / F ADM Date: 09/15/24 Loc: [place] 218-[address]: Angle Godinez M.D. Ordering Physician: Jade Maya Date of Service: 09/15/24 Procedure(s): ECG 12 lead Accession Number(s): [id number] cc: The Test Date: 2024-09-15 Pat Name: JOSE MOSER Department: Room: - Gender: Female Filling Carrier: : 1960 Requested By: 0929 Order Number: [id number] Reading MD: BENJIE DANG M.D. Measurements Intervals Francis Rate: 84 P: 90 OR: 142 QRS: -4 QRSD: 98 T: -6 QT: 384 QTc: 424 Interpretive Statements NORMAL SINUS RHYTHM Minimal voltage criteria for LVH, may be normal variant ARTIFACT IN LEAD(S) Borderline ECG Compared to ECG 03/29/2024 14:03:36 No significant change Electronically Signed On 09-16-2024 7:08:51 EDT by BENJIE DANG M.D. Dictated By: BENJIE DANG Signed By: 09/16/24 0709 DD/ 19 TD/TT: Beater Engineer Helper:NEETA Reviewed date:09/16/2024 08:39:55 PM Interpretation: Performing Lab: Notes/Report: Comment use blood this am? The ,Magnesium2.11.8-2.4 mg/dLPerforming Lab:see note - [facility] PROF CHEM 8 (BAS METB) Reviewed date:09/16/2024 08:39:55 PM Interpretation: Performing Lab: Notes/Report: The ,Wjfbcb964923-039 mmol/LPotassium3.53.5-5.1 mmol/ENxwdiffs54151-401 mmol/LCarbon Jvxdkeo54.021.0-32.0 mmol/LAnion Gap9.4Khtjdtk0046-337 mg/dLBlood Urea Nitrogen 45.07.0-18.0 mg/dLCreatinine1.760.55-1.02 mg/dLEstimated GFR ( Bktkgvv35 >=60 mL/min/1.73m 2Estimated GFR (Non- Ame29>=60 mL/min/1.73m 2BUN Creatinine Ratio25.9Fjankkw8.08.5-10.1 mg/dLPerforming Lab:see noteTrinity Health SystemC no Diff (Hemogram) Reviewed date:09/16/2024 08:39:55 PM Interpretation: Performing Lab: Notes/Report: The ,White Blood Count3.64.0-11.0 10 3/uLRed Blood Count2.984.20-5.40 10 6/uL Hemoglobin9.212.0-16.0 g/iWGcydofkhdk82.436.0-48.0 %Mean Corpuscular Iznzaz37.7 81.0-99.0 fLMean Corpuscular Ekbehlosjc78.926.7-34.0 pgMean Corpuscular HGB Conc 31.329.9-35.2 g/dLRed Cell Distribution Width13.811.0-15.0 %Platelet Mpzjo303 150-450 10 3/uLMean Platelet Volume8.99.5-13.5 fLPerforming Lab:see noteWright-Patterson Medical CenterCBC AUTO DIFF Reviewed date:09/17/2024 12:10:47 PM Interpretation: Performing Lab: Notes/Report: The ,White Blood Count4.54.0-11.0 10 3/uLRed Blood Count3.154.20-5.40 10 6/uL Hemoglobin9.612.0-16.0 g/pZGelsfydnpy32.336.0-48.0 %Mean Corpuscular Uteokf98.4 81.0-99.0 fLMean Corpuscular Jiazuymmgy22.526.7-34.0 pgMean Corpuscular HGB Conc 30.729.9-35.2 g/dLRed Cell Distribution Width14.011.0-15.0 %Platelet Rxqcu062 150-450 10 3/uLMean Platelet Volume8.99.5-13.5 fLNeutrophils Percent Auto70.0 43.0-75.0 %Lymphocytes Percent Auto18.920.5-60.0 %Monocytes Percent Auto9.01.7- 12.0 %Eosinophils Percent Auto1.50.9-7.0 %Basophils Percent Auto0.40.2-2.0 % Immature Granulocytes Pct Auto0.20.0-0.5 %Neutrophils Absolute Auto3.21.4-6.5 10 3/uLLymphocytes Absolute Auto0.91.2-3.8 10 3/uLMonocytes Absolute Auto0.40.3-0.8 10 3/uLEosinophils Absolute Auto0.10.0-0.7 10 3/uLBasophils Absolute Auto0.00.0- 0.1 10 3/uLImmature Granulocytes Abs Auto0.010.00-0.03 10 3/uLPerforming Lab:see noteML - The LBPROF CHEM 8 (BAS METB) Reviewed date:09/17/2024 12:10:47 PM Interpretation: Performing Lab: Notes/Report: The ,Grfgqm785406-620 mmol/LPotassium3.53.5-5.1 mmol/DTyfcihiq45415-595 mmol/LCarbon Dpnzkso77.321.0-32.0 mmol/LAnion Gap10.8Cphzfjz70850-410 mg/dLBlood Urea Wbojbikm54.07.0-18.0 mg/dLCreatinine1.780.55-1.02 mg/dLEstimated GFR ( Tmcgnih96>=60 mL/min/1.73m 2Estimated GFR (Non- Ame29>=60 mL/min/1.73m 2 BUN Creatinine Ratio24.9Vsvidam5.38.5-10.1 mg/dLPerforming Lab:see noteML - The LBCBC AUTO DIFF Reviewed date:09/18/2024 10:55:14 AM Interpretation: Performing Lab: Notes/Report: The ,White Blood Count3.34.0-11.0 10 3/uLRed Blood Count3.024.20-5.40 10 6/uL Hemoglobin9.212.0-16.0 g/aCNlfgmfcwid00.336.0-48.0 %Mean Corpuscular Bnqdwe180.3 81.0-99.0 fLMean Corpuscular Wbjobndhvo67.526.7-34.0 pgMean Corpuscular HGB Conc 30.429.9-35.2 g/dLRed Cell Distribution Width13.811.0-15.0 %Platelet Iognp623 150-450 10 3/uLMean Platelet Volume8.99.5-13.5 fLNeutrophils Percent Auto54.0 43.0-75.0 %Lymphocytes Percent Auto31.920.5-60.0 %Monocytes Percent Auto9.61.7- 12.0 %Eosinophils Percent Auto3.30.9-7.0 %Basophils Percent Auto0.60.2-2.0 % Immature Granulocytes Pct Auto0.60.0-0.5 %Neutrophils Absolute Auto1.81.4-6.5 10 3/uLLymphocytes Absolute Auto1.11.2-3.8 10 3/uLMonocytes Absolute Auto0.30.3-0.8 10 3/uLEosinophils Absolute Auto0.10.0-0.7 10 3/uLBasophils Absolute Auto0.00.0- 0.1 10 3/uLImmature Granulocytes Abs Auto0.020.00-0.03 10 3/uLPerforming Lab:see noteML - The LBPROF CHEM 8 (BAS METB) Reviewed date:09/18/2024 10:55:14 AM Interpretation: Performing Lab: Notes/Report: The ,Wfolny213794-995 mmol/LPotassium3.63.5-5.1 mmol/IGemunpjt80172-787 mmol/LCarbon Mzfsvic87.121.0-32.0 mmol/LAnion Gap8.0Bkwqkte54421-639 mg/dLBlood Urea Nitrogen 47.07.0-18.0 mg/dLCreatinine1.990.55-1.02 mg/dLEstimated GFR ( Jhjlwqy93 >=60 mL/min/1.73m 2Estimated GFR (Non- Ame25>=60 mL/min/1.73m 2BUN Creatinine Ratio23.7Cftemza6.18.5-10.1 mg/dLPerforming Lab:see noteML - The LBCBC AUTO DIFF Reviewed date:09/29/2024 03:19:39 PM Interpretation: Performing Lab: Notes/Report: The ,White Blood Count6.74.0-11.0 10 3/uLRed Blood Count3.094.20-5.40 10 6/uL Hemoglobin9.412.0-16.0 g/uNRokfcphrvm39.836.0-48.0 %Mean Corpuscular Psuykj70.4 81.0-99.0 fLMean Corpuscular Ozqwmklgsv09.426.7-34.0 pgMean Corpuscular HGB Conc 31.529.9-35.2 g/dLRed Cell Distribution Width13.111.0-15.0 %Platelet Luhik484 150-450 10 3/uLMean Platelet Volume8.69.5-13.5 fLNeutrophils Percent Auto73.0 43.0-75.0 %Lymphocytes Percent Auto14.320.5-60.0 %Monocytes Percent Auto9.31.7- 12.0 %Eosinophils Percent Auto2.30.9-7.0 %Basophils Percent Auto0.50.2-2.0 % Immature Granulocytes Pct Auto0.60.0-0.5 %Neutrophils Absolute Auto4.91.4-6.5 10 3/uLLymphocytes Absolute Auto1.01.2-3.8 10 3/uLMonocytes Absolute Auto0.60.3-0.8 10 3/uLEosinophils Absolute Auto0.20.0-0.7 10 3/uLBasophils Absolute Auto0.00.0- 0.1 10 3/uLImmature Granulocytes Abs Auto0.040.00-0.03 10 3/uLPerforming Lab:see note - [facility] LBPROF 14(COMP METB) Reviewed date:09/29/2024 03:19:39 PM Interpretation: Performing Lab: Notes/Report: The ,Wueqbj273380-707 mmol/LPotassium4.33.5-5.1 mmol/VYxawwpbp6254-496 mmol/LCarbon Rybyfcx84.921.0-32.0 mmol/LAnion Gap12.0Ebdteea9748-054 mg/dLBlood Urea Nitrogen 58.07.0-18.0 mg/dLCreatinine2.120.55-1.02 mg/dLEstimated GFR ( Xcwkwdt94 >=60 mL/min/1.73m 2Estimated GFR (Non- Ame24>=60 mL/min/1.73m 2BUN Creatinine Ratio27.9Ppqqfpj9.28.5-10.1 mg/dLBilirubin Total0.20.2-1.0 mg/dL Aspartate Amino Wmnaacmdxwk6229-11 U/LAlanine Durnvcccgnupjhpv4343-42 U/L Alkaline Uhxjehexhoc33345-249 U/LTotal Protein6.76.4-8.2 g/dLAlbumin Level3.0 3.4-5.0 g/dLGlobulin3.7Albumin Globulin Ratio0.8Performing Lab:see note - [facility] LBOsmolality Reviewed date:09/30/2024 07:08:29 PM Interpretation: Performing Lab: Notes/Report: [facility] ,Nvgpawsxwq376949-165 mOsmol/kg Performed at: - [facility] [id number] Spout Liner Helper: Nicolas Arenas MD, Phone: [phone] Performing Lab:see alyshaPROVID[facility] LBFERRITIN Reviewed date:09/29/2024 03:19:39 PM Interpretation: Performing Lab: Notes/Report: [facility] ,Aqizjiho890.08.0-252.0 ng/mLPerforming Lab:see noteMarion Hospital LBIRON AND TIBC Reviewed date:09/29/2024 03:19:39 PM Interpretation: Performing Lab: Notes/Report: The ,Iron71.050.0-170.0 ug/dLTotal Iron Binding Bpeqeexr454.0250.0-450.0 ug/dL Percent Iron Tormavmzmq02.2Performing Lab:see noteML - [facility] LB CBC AUTO DIFF Reviewed date:10/07/2024 08:19:45 PM Interpretation: Performing Lab: Notes/Report: The ,White Blood Count7.74.0-11.0 10 3/uLRed Blood Count3.344.20-5.40 10 6/uL Jtzcpzpoea83.112.0-16.0 g/xTJrrdlccstc82.236.0-48.0 %Mean Corpuscular Hhmoyg53.4 81.0-99.0 fLMean Corpuscular Gkkunwgmzs67.226.7-34.0 pgMean Corpuscular HGB Conc 31.429.9-35.2 g/dLRed Cell Distribution Width13.311.0-15.0 %Platelet Stkgf799 150-450 10 3/uLMean Platelet Volume8.99.5-13.5 fLNeutrophils Percent Auto77.9 43.0-75.0 %Lymphocytes Percent Auto12.620.5-60.0 %Monocytes Percent Auto7.01.7- 12.0 %Eosinophils Percent Auto2.00.9-7.0 %Basophils Percent Auto0.10.2-2.0 % Immature Granulocytes Pct Auto0.40.0-0.5 %Neutrophils Absolute Auto6.01.4-6.5 10 3/uLLymphocytes Absolute Auto1.01.2-3.8 10 3/uLMonocytes Absolute Auto0.50.3-0.8 10 3/uLEosinophils Absolute Auto0.20.0-0.7 10 3/uLBasophils Absolute Auto0.00.0- 0.1 10 3/uLImmature Granulocytes Abs Auto0.030.00-0.03 10 3/uLPerforming Lab:see noteML - [facility] LBPROF 14(COMP METB) Reviewed date:10/07/2024 08:19:45 PM Interpretation: Performing Lab: Notes/Report: The ,Qkbhak129151-473 mmol/LPotassium4.33.5-5.1 mmol/YUlbfcyti95586-116 mmol/LCarbon Rkumlnt18.321.0-32.0 mmol/LAnion Gap12.4Exvgmxv7521-785 mg/dLBlood Urea Nitrogen 61.07.0-18.0 mg/dLCreatinine1.630.55-1.02 mg/dLEstimated GFR ( Closfml52 >=60 mL/min/1.73m 2Estimated GFR (Non- Ame32>=60 mL/min/1.73m 2BUN Creatinine Ratio37.4Sesxaep3.58.5-10.1 mg/dLBilirubin Total0.20.2-1.0 mg/dL Aspartate Amino Mvcwkibmdbc9446-24 U/LAlanine Hdisjoyduijiuwpw1523-47 U/L Alkaline Rbdtknirlkk56867-477 U/LTotal Protein7.06.4-8.2 g/dLAlbumin Level3.4 3.4-5.0 g/dLGlobulin3.6Albumin Globulin Ratio0.9Performing Lab:see noteMar[facility] Hospital LBOsmolality Reviewed date:10/08/2024 01:04:41 PM Interpretation: Performing Lab: Notes/Report: [facility] ,Qfuuixuawl474164-058 mOsmol/kg Performed at: [facility] [address] [id number] Spout Liner Helper: Nicolas Arenas MD, Phone: [phone] Performing Lab:see note - [facility] LBBNP Reviewed date:10/15/2024 08:28:30 PM Interpretation: Performing Lab: Notes/Report: The ,NT Pro B Type Natriuretic Edqa162.0<=900.0 pg/mLPerforming Lab:see alyshaMarion Hospital LBCBC AUTO DIFF Reviewed date:10/15/2024 02:22:26 PM Interpretation: Performing Lab: Notes/Report: The ,White Blood Count5.34.0-11.0 10 3/uLRed Blood Count3.244.20-5.40 10 6/uL Hemoglobin9.812.0-16.0 g/sWWcmspcszrz93.936.0-48.0 %Mean Corpuscular Oupvxj89.5 81.0-99.0 fLMean Corpuscular Vvnoswiixc37.226.7-34.0 pgMean Corpuscular HGB Conc 30.729.9-35.2 g/dLRed Cell Distribution Width13.411.0-15.0 %Platelet Wyhtp011 150-450 10 3/uLMean Platelet Volume8.99.5-13.5 fLNeutrophils Percent Auto64.1 43.0-75.0 %Lymphocytes Percent Auto24.020.5-60.0 %Monocytes Percent Auto8.11.7- 12.0 %Eosinophils Percent Auto3.00.9-7.0 %Basophils Percent Auto0.60.2-2.0 % Immature Granulocytes Pct Auto0.20.0-0.5 %Neutrophils Absolute Auto3.41.4-6.5 10 3/uLLymphocytes Absolute Auto1.31.2-3.8 10 3/uLMonocytes Absolute Auto0.40.3-0.8 10 3/uLEosinophils Absolute Auto0.20.0-0.7 10 3/uLBasophils Absolute Auto0.00.0- 0.1 10 3/uLImmature Granulocytes Abs Auto0.010.00-0.03 10 3/uLPerforming Lab:see noteML - [facility] LBPROF 14(COMP METB) Reviewed date:10/15/2024 02:22:26 PM Interpretation: Performing Lab: Notes/Report: The ,Safkhy835471-538 mmol/LPotassium4.33.5-5.1 mmol/HWzjbzvjv2004-638 mmol/LCarbon Mgetlsp26.121.0-32.0 mmol/LAnion Gap13.5Zicxydh73560-369 mg/dLBlood Urea Nawrdzxo20.07.0-18.0 mg/dLCreatinine2.110.55-1.02 mg/dLEstimated GFR ( Sjwuawl53>=60 mL/min/1.73m 2Estimated GFR (Non- Ame24>=60 mL/min/1.73m 2 BUN Creatinine Ratio31.7Wghzjlv9.38.5-10.1 mg/dLBilirubin Total0.20.2-1.0 mg/dL Aspartate Amino Ctmwhtovxpm0746-75 U/LAlanine Stihnbxofbozknpk5092-54 U/L Alkaline Pxllrfeefgr43626-470 U/LTotal Protein6.96.4-8.2 g/dLAlbumin Level3.3 3.4-5.0 g/dLGlobulin3.6Albumin Globulin Ratio0.9Performing Lab:see noteML - [facility] LBOsmolality Reviewed date:10/17/2024 01:08:03 PM Interpretation: Performing Lab: Notes/Report: [facility] ,Cwzkpffghm474942-169 mOsmol/kg Performed at: [facility] Lab[address] [id number] Spout Liner Helper: Nicolas Arenas MD, Phone: [phone] Performing Lab:see noteLC - [facility] LBECG 12 lead Reviewed date:10/15/2024 08:28:30 PM Interpretation: Performing Lab: Notes/Report: Source Facility: [place] [address] Electrocardiograph Report Signed Patient: JOSE MOSER MR#: [id number] : 1960 Acct:[id number] Age/Sex: 64 / F ADM Date: 10/15/24 Loc: ER Attending Dr: Ordering Physician: Chapo Venegas M.D. Date of Service: 10/15/24 Procedure(s): ECG 12 lead Accession Number(s): [id number] cc: [facility] Test Date: 2024-10-15 Pat Name: JOSE MOSER Department: Room: - Gender: Female Filling Carrier: : 1960 Requested By: 1030 Order Number: [id number] Renee MD: NEHEMIAH CAMPBELL Measurements Intervals Francis Rate: 83 P: 80 OR: 170 QRS: 20 QRSD: 98 T: 22 QT: 364 QTc: 404 Interpretive Statements 1100 Sinus rhythm 9110 normal ECG Compared to ECG 09/15/2024 19:20:09 Left ventricular hypertrophy no longer present Electronically Signed On 10-15-2024 18:22:52 EDT by NEHEMIAH CAMPBELL Dictated By: Nehemiah Campbell M.D. Signed By: 10/15/24 182 DD/ 1622 TD/TT: Beater Engineer Helper:CBC AUTO DIFF Reviewed date:10/16/2024 10:15:17 AM Interpretation: Performing Lab: Notes/Report: The ,White Blood Count4.54.0-11.0 10 3/uLRed Blood Count2.954.20-5.40 10 6/uL Hemoglobin8.912.0-16.0 g/sKPqwgntakzc17.336.0-48.0 %Mean Corpuscular Ajydte05.3 81.0-99.0 fLMean Corpuscular Otvvskcdmh82.226.7-34.0 pgMean Corpuscular HGB Conc 30.429.9-35.2 g/dLRed Cell Distribution Width13.411.0-15.0 %Platelet Cqizr082 150-450 10 3/uLMean Platelet Volume8.89.5-13.5 fLNeutrophils Percent Auto59.9 43.0-75.0 %Lymphocytes Percent Auto26.620.5-60.0 %Monocytes Percent Auto10.01.7- 12.0 %Eosinophils Percent Auto2.90.9-7.0 %Basophils Percent Auto0.40.2-2.0 % Immature Granulocytes Pct Auto0.20.0-0.5 %Neutrophils Absolute Auto2.71.4-6.5 10 3/uLLymphocytes Absolute Auto1.21.2-3.8 10 3/uLMonocytes Absolute Auto0.50.3-0.8 10 3/uLEosinophils Absolute Auto0.10.0-0.7 10 3/uLBasophils Absolute Auto0.00.0- 0.1 10 3/uLImmature Granulocytes Abs Auto0.010.00-0.03 10 3/uLPerforming Lab:see noteML - The LBPROF CHEM 8 (BAS METB) Reviewed date:10/16/2024 10:15:17 AM Interpretation: Performing Lab: Notes/Report: The ,Wverpu462153-195 mmol/LPotassium3.93.5-5.1 mmol/MMqfnnnxo77679-609 mmol/LCarbon Jleahxc88.521.0-32.0 mmol/LAnion Gap15.2Fzwgaxc40161-199 mg/dLBlood Urea Yawvtjau60.07.0-18.0 mg/dLCreatinine2.040.55-1.02 mg/dLEstimated GFR ( Camanqh42>=60 mL/min/1.73m 2Estimated GFR (Non- Ame25>=60 mL/min/1.73m 2 BUN Creatinine Ratio32.8Zuiduac9.48.5-10.1 mg/dLPerforming Lab:see noteML - [facility] LBCBC AUTO DIFF Reviewed date:10/17/2024 01:08:03 PM Interpretation: Performing Lab: Notes/Report: The ,White Blood Count5.94.0-11.0 10 3/uLRed Blood Count2.974.20-5.40 10 6/uL Hemoglobin9.112.0-16.0 g/xWPdcgjfvety18.736.0-48.0 %Mean Corpuscular Dnxchh416.0 81.0-99.0 fLMean Corpuscular Yqldnpckla05.626.7-34.0 pgMean Corpuscular HGB Conc 30.629.9-35.2 g/dLRed Cell Distribution Width13.611.0-15.0 %Platelet Wudtl385 150-450 10 3/uLMean Platelet Volume9.09.5-13.5 fLNeutrophils Percent Auto74.8 43.0-75.0 %Lymphocytes Percent Auto15.520.5-60.0 %Monocytes Percent Auto8.11.7- 12.0 %Eosinophils Percent Auto1.00.9-7.0 %Basophils Percent Auto0.30.2-2.0 % Immature Granulocytes Pct Auto0.30.0-0.5 %Neutrophils Absolute Auto4.41.4-6.5 10 3/uLLymphocytes Absolute Auto0.91.2-3.8 10 3/uLMonocytes Absolute Auto0.50.3-0.8 10 3/uLEosinophils Absolute Auto0.10.0-0.7 10 3/uLBasophils Absolute Auto0.00.0- 0.1 10 3/uLImmature Granulocytes Abs Auto0.020.00-0.03 10 3/uLPerforming Lab:see noteML - [facility] LBPROF CHEM 8 (BAS METB) Reviewed date:10/17/2024 01:08:03 PM Interpretation: Performing Lab: Notes/Report: The ,Abjuny672730-844 mmol/LPotassium3.83.5-5.1 mmol/OBrcrqhnf89383-036 mmol/LCarbon Qyfvkkk92.421.0-32.0 mmol/LAnion Gap11.8Wclxify41621-232 mg/dLBlood Urea Dbkwuojn33.07.0-18.0 mg/dLCreatinine1.800.55-1.02 mg/dLEstimated GFR ( Rtdkvrd39>=60 mL/min/1.73m 2Estimated GFR (Non- Ame29>=60 mL/min/1.73m 2 BUN Creatinine Ratio35.3Dkxocfm9.28.5-10.1 mg/dLPerforming Lab:see noteML - [facility] LBCBC AUTO DIFF Reviewed date:10/18/2024 08:57:23 AM Interpretation: Performing Lab: Notes/Report: The ,White Blood Count5.94.0-11.0 10 3/uLRed Blood Count2.854.20-5.40 10 6/uL Hemoglobin8.712.0-16.0 g/wFAxjpvrrhsa98.936.0-48.0 %Mean Corpuscular Dcqjss390.4 81.0-99.0 fLMean Corpuscular Gtrkgvhjat11.526.7-34.0 pgMean Corpuscular HGB Conc 30.129.9-35.2 g/dLRed Cell Distribution Width13.711.0-15.0 %Platelet Jbxyv840 150-450 10 3/uLMean Platelet Volume9.29.5-13.5 fLNeutrophils Percent Auto61.5 43.0-75.0 %Lymphocytes Percent Auto24.620.5-60.0 %Monocytes Percent Auto10.31.7- 12.0 %Eosinophils Percent Auto2.70.9-7.0 %Basophils Percent Auto0.20.2-2.0 % Immature Granulocytes Pct Auto0.70.0-0.5 %Neutrophils Absolute Auto3.71.4-6.5 10 3/uLLymphocytes Absolute Auto1.51.2-3.8 10 3/uLMonocytes Absolute Auto0.60.3-0.8 10 3/uLEosinophils Absolute Auto0.20.0-0.7 10 3/uLBasophils Absolute Auto0.00.0- 0.1 10 3/uLImmature Granulocytes Abs Auto0.040.00-0.03 10 3/uLPerforming Lab:see noteML - [facility] LBPROF CHEM 8 (BAS METB) Reviewed date:10/18/2024 08:57:23 AM Interpretation: Performing Lab: Notes/Report: The ,Tlgjxd505643-775 mmol/LPotassium3.93.5-5.1 mmol/AHxicghwn63279-303 mmol/LCarbon Gnujahy24.621.0-32.0 mmol/LAnion Gap11.4Efwmfcq3176-341 mg/dLBlood Urea Nitrogen 63.07.0-18.0 mg/dLCreatinine2.060.55-1.02 mg/dLEstimated GFR ( Cxsndng81 >=60 mL/min/1.73m 2Estimated GFR (Non- Ame24>=60 mL/min/1.73m 2BUN Creatinine Ratio30.1Udcfsmz1.08.5-10.1 mg/dLPerforming Lab:see noteML - [facility] LBCBC AUTO DIFF Reviewed date:10/22/2024 03:59:28 PM Interpretation: Performing Lab: Notes/Report: The ,White Blood Count6.54.0-11.0 10 3/uLRed Blood Count3.514.20-5.40 10 6/uL Appbetsrhj17.812.0-16.0 g/fJUocnddsoyw41.236.0-48.0 %Mean Corpuscular Teijup10.4 81.0-99.0 fLMean Corpuscular Ozeqjtuhow83.826.7-34.0 pgMean Corpuscular HGB Conc 31.629.9-35.2 g/dLRed Cell Distribution Width14.211.0-15.0 %Platelet Yrrot269 150-450 10 3/uLMean Platelet Volume9.09.5-13.5 fLNeutrophils Percent Auto71.5 43.0-75.0 %Lymphocytes Percent Auto19.320.5-60.0 %Monocytes Percent Auto6.91.7- 12.0 %Eosinophils Percent Auto1.70.9-7.0 %Basophils Percent Auto0.30.2-2.0 % Immature Granulocytes Pct Auto0.30.0-0.5 %Neutrophils Absolute Auto4.71.4-6.5 10 3/uLLymphocytes Absolute Auto1.31.2-3.8 10 3/uLMonocytes Absolute Auto0.50.3-0.8 10 3/uLEosinophils Absolute Auto0.10.0-0.7 10 3/uLBasophils Absolute Auto0.00.0- 0.1 10 3/uLImmature Granulocytes Abs Auto0.020.00-0.03 10 3/uLPerforming Lab:see noteML - The LBPROF 14(COMP METB) Reviewed date:10/22/2024 03:59:28 PM Interpretation: Performing Lab: Notes/Report: The ,Rdpibj328659-989 mmol/LPotassium4.63.5-5.1 mmol/DOwjmozwo0997-521 mmol/LCarbon Rodoxsb35.621.0-32.0 mmol/LAnion Gap13.1Jsmkjpj7865-618 mg/dLBlood Urea Nitrogen 63.07.0-18.0 mg/dLCreatinine1.830.55-1.02 mg/dLEstimated GFR ( Cxcmjal12 >=60 mL/min/1.73m 2Estimated GFR (Non- Ame28>=60 mL/min/1.73m 2BUN Creatinine Ratio34.9Yfdxviy7.38.5-10.1 mg/dLBilirubin Total0.20.2-1.0 mg/dL Aspartate Amino Khomqxvdrii8107-31 U/LAlanine Efoazilxjqwisadx6248-69 U/L Alkaline Befvkujfgvm29550-507 U/LTotal Protein7.36.4-8.2 g/dLAlbumin Level3.6 3.4-5.0 g/dLGlobulin3.7Albumin Globulin Ratio1.0Performing Lab:see noteML - [facility] LBOsmolality Reviewed date:10/24/2024 12:21:56 PM Interpretation: Performing Lab: Notes/Report: [facility] ,Jneunsfsbf958660-872 mOsmol/kg Performed at: [address] [id number] [employer]: Nicolas Arenas MD, Phone: [phone] Performing Lab:see noteLC - [facility] LBCBC AUTO DIFF Reviewed date:11/12/2024 08:06:12 PM Interpretation: Performing Lab: Notes/Report: The ,White Blood Count5.24.0-11.0 10 3/uLRed Blood Count3.334.20-5.40 10 6/uL Dsqfsbgjvs93.312.0-16.0 g/zPRzgrsdbtww31.836.0-48.0 %Mean Corpuscular Fqyssh06.5 81.0-99.0 fLMean Corpuscular Txjsoywbcz22.926.7-34.0 pgMean Corpuscular HGB Conc 32.429.9-35.2 g/dLRed Cell Distribution Width13.411.0-15.0 %Platelet Pcnev804 150-450 10 3/uLMean Platelet Volume9.29.5-13.5 fLNeutrophils Percent Auto63.5 43.0-75.0 %Lymphocytes Percent Auto24.220.5-60.0 %Monocytes Percent Auto8.61.7- 12.0 %Eosinophils Percent Auto2.70.9-7.0 %Basophils Percent Auto0.60.2-2.0 % Immature Granulocytes Pct Auto0.40.0-0.5 %Neutrophils Absolute Auto3.31.4-6.5 10 3/uLLymphocytes Absolute Auto1.31.2-3.8 10 3/uLMonocytes Absolute Auto0.50.3-0.8 10 3/uLEosinophils Absolute Auto0.10.0-0.7 10 3/uLBasophils Absolute Auto0.00.0- 0.1 10 3/uLImmature Granulocytes Abs Auto0.020.00-0.03 10 3/uLPerforming Lab:[facility] LBPROF 14(COMP METB) Reviewed date:11/12/2024 08:06:12 PM Interpretation: Performing Lab: Notes/Report: The ,Nrcsfb852318-191 mmol/LPotassium3.43.5-5.1 mmol/JGqftqdpz5561-858 mmol/LCarbon Lnkajqa69.521.0-32.0 mmol/LAnion Gap15.3Buohjfo94571-568 mg/dLBlood Urea Eowavzgj061.07.0-18.0 mg/dLRESULTS CALLED TO JEREL ALVES, RNCreatinine2.560.55- 1.02 mg/dLEstimated GFR ( Mmrogri21>=60 mL/min/1.73m 2Estimated GFR (Non- Ame19>=60 mL/min/1.73m 2BUN Creatinine Ratio39.6Dloucbq1.78.5-10.1 mg/dL Bilirubin Total0.20.2-1.0 mg/dLAspartate Amino Qwixupnctfr2078-71 U/LAlanine Hotlspvepwcedzau3936-85 U/LAlkaline Eivornqodzk10005-944 U/LTotal Protein7.36.4- 8.2 g/dLAlbumin Level3.43.4-5.0 g/dLGlobulin3.9Albumin Globulin Ratio0.9 Performing Lab:see note - [facility] LBOsmolality Reviewed date:11/16/2024 11:46:04 AM Interpretation: Performing Lab: Notes/Report: [facility] ,Svpzltlexr266173-202 mOsmol/kg Performed at: - [address] [id number] [employer]: Nicolas Arenas MD, Phone: [phone] Performing Lab:see note - [facility] LBCBC AUTO DIFF Reviewed date:11/26/2024 04:03:27 PM Interpretation: Performing Lab: Notes/Report: [facility] ,White Blood Count7.44.0-11.0 10 3/uLRed Blood Count3.174.20-5.40 10 6/uL Hemoglobin9.712.0-16.0 g/cKVhtrkrkzzf51.636.0-48.0 %Mean Corpuscular Hkqslq23.5 81.0-99.0 fLMean Corpuscular Tljorkiyoo63.626.7-34.0 pgMean Corpuscular HGB Conc 31.729.9-35.2 g/dLRed Cell Distribution Width13.511.0-15.0 %Platelet Wltmf199 150-450 10 3/uLMean Platelet Volume8.89.5-13.5 fLNeutrophils Percent Auto73.3 43.0-75.0 %Lymphocytes Percent Auto14.020.5-60.0 %Monocytes Percent Auto10.71.7- 12.0 %Eosinophils Percent Auto1.10.9-7.0 %Basophils Percent Auto0.40.2-2.0 % Immature Granulocytes Pct Auto0.50.0-0.5 %Neutrophils Absolute Auto5.41.4-6.5 10 3/uLLymphocytes Absolute Auto1.01.2-3.8 10 3/uLMonocytes Absolute Auto0.80.3-0.8 10 3/uLEosinophils Absolute Auto0.10.0-0.7 10 3/uLBasophils Absolute Auto0.00.0- 0.1 10 3/uLImmature Granulocytes Abs Auto0.040.00-0.03 10 3/uLPerforming Lab:see noteML - The LBPROF 14(COMP METB) Reviewed date:11/26/2024 04:03:27 PM Interpretation: Performing Lab: Notes/Report: The ,Dmnpmu702971-834 mmol/LPotassium4.83.5-5.1 mmol/QQtyujtdc8005-969 mmol/LCarbon Juymnoj75.721.0-32.0 mmol/LAnion Gap17.2Mqswyrm2839-735 mg/dLBlood Urea Nitrogen 101.07.0-18.0 mg/dLRESULTS CALLED TO JEREL ALVES RN at 5283Vcmhwngbam1.700.55- 1.02 mg/dLEstimated GFR ( Cegxbch00>=60 mL/min/1.73m 2Estimated GFR (Non- Ame18>=60 mL/min/1.73m 2BUN Creatinine Ratio37.2Citochu0.48.5-10.1 mg/dL Bilirubin Total0.20.2-1.0 mg/dLAspartate Amino Fqntxqxnhmk5628-73 U/LAlanine Dwukghzhkfhgwncx8994-70 U/LAlkaline Hqmbajuexoo55948-333 U/LTotal Protein6.96.4- 8.2 g/dLAlbumin Level3.13.4-5.0 g/dLGlobulin3.8Albumin Globulin Ratio0.8 Performing Lab:see note - [facility] LBOsmolality Reviewed date:11/30/2024 05:03:08 PM Interpretation: Performing Lab: Notes/Report: [facility] ,Cougnqetnh587785-385 mOsmol/kg Performed at: - [address] [id number] [employer]: Nicolas Arenas MD, Phone: [phone] Performing Lab:see note - [facility] LBCBC AUTO DIFF Reviewed date:12/10/2024 12:40:51 PM Interpretation: Performing Lab: Notes/Report: [facility] ,White Blood Count5.34.0-11.0 10 3/uLRed Blood Count3.764.20-5.40 10 6/uL Cinzgekqpt67.612.0-16.0 g/iFHcgfkoeecy06.236.0-48.0 %Mean Corpuscular Lsovwy44.3 81.0-99.0 fLMean Corpuscular Qkyybjdptc31.926.7-34.0 pgMean Corpuscular HGB Conc 32.029.9-35.2 g/dLRed Cell Distribution Width13.711.0-15.0 %Platelet Xfqke806 150-450 10 3/uLMean Platelet Volume9.19.5-13.5 fLNeutrophils Percent Auto60.4 43.0-75.0 %Lymphocytes Percent Auto26.520.5-60.0 %Monocytes Percent Auto9.51.7- 12.0 %Eosinophils Percent Auto2.60.9-7.0 %Basophils Percent Auto0.40.2-2.0 % Immature Granulocytes Pct Auto0.60.0-0.5 %Neutrophils Absolute Auto3.21.4-6.5 10 3/uLLymphocytes Absolute Auto1.41.2-3.8 10 3/uLMonocytes Absolute Auto0.50.3-0.8 10 3/uLEosinophils Absolute Auto0.10.0-0.7 10 3/uLBasophils Absolute Auto0.00.0- 0.1 10 3/uLImmature Granulocytes Abs Auto0.030.00-0.03 10 3/uLPerforming Lab:see note - [facility] LBPROF 14(COMP METB) Reviewed date:12/10/2024 12:40:51 PM Interpretation: Performing Lab: Notes/Report: The ,Gdtjpf757975-453 mmol/LPotassium4.23.5-5.1 mmol/ZRgtciubs5177-265 mmol/LCarbon Dnefqqe12.721.0-32.0 mmol/LAnion Gap9.9Srvqkwu4780-541 mg/dLBlood Urea Nitrogen 63.07.0-18.0 mg/dLCreatinine1.770.55-1.02 mg/dLEstimated GFR ( Onubvmr40 >=60 mL/min/1.73m 2Estimated GFR (Non- Ame29>=60 mL/min/1.73m 2BUN Creatinine Ratio35.0Laopghq1.18.5-10.1 mg/dLBilirubin Total0.20.2-1.0 mg/dL Aspartate Amino Xxsfcrakvwi4651-95 U/LAlanine Hwacnwfbuwzcfaqf7604-76 U/L Alkaline Jafjgumnnxr06307-313 U/LTotal Protein7.06.4-8.2 g/dLAlbumin Level3.0 3.4-5.0 g/dLGlobulin4.0Albumin Globulin Ratio0.8Performing Lab:see note - [facility] LBOsmolality Reviewed date:12/12/2024 09:19:03 AM Interpretation: Performing Lab: Notes/Report: [facility] ,Uchrygtfvv357297-050 mOsmol/kg Performed at: - [facility] [id number] [employer]: Nicolas Arenas MD, Phone: [phone] Performing Lab:see noteLC - [facility] LBCBC AUTO DIFF Reviewed date:01/02/2025 06:15:12 PM Interpretation: Performing Lab: Notes/Report: The ,White Blood Count5.74.0-11.0 10 3/uLRed Blood Count3.684.20-5.40 10 6/uL Txeswphcot52.412.0-16.0 g/bBTiyneiexaz44.536.0-48.0 %Mean Corpuscular Icxjlo63.8 81.0-99.0 fLMean Corpuscular Eizqimlcms21.026.7-34.0 pgMean Corpuscular HGB Conc 33.029.9-35.2 g/dLRed Cell Distribution Width12.911.0-15.0 %Platelet Hdlir487 150-450 10 3/uLMean Platelet Volume9.99.5-13.5 fLNeutrophils Percent Auto70.2 43.0-75.0 %Lymphocytes Percent Auto19.620.5-60.0 %Monocytes Percent Auto6.81.7- 12.0 %Eosinophils Percent Auto2.80.9-7.0 %Basophils Percent Auto0.30.2-2.0 % Immature Granulocytes Pct Auto0.30.0-0.5 %Neutrophils Absolute Auto4.01.4-6.5 10 3/uLLymphocytes Absolute Auto1.11.2-3.8 10 3/uLMonocytes Absolute Auto0.40.3-0.8 10 3/uLEosinophils Absolute Auto0.20.0-0.7 10 3/uLBasophils Absolute Auto0.00.0- 0.1 10 3/uLImmature Granulocytes Abs Auto0.020.00-0.03 10 3/uLPerforming Lab:see noteML - The LBFERRITIN Reviewed date:01/02/2025 06:15:12 PM Interpretation: Performing Lab: Notes/Report: The ,Svzwylhh537.08.0-252.0 ng/mLPerforming Lab:see noteML - [facility] LBIRON AND TIBC Reviewed date:01/02/2025 06:15:12 PM Interpretation: Performing Lab: Notes/Report: The ,Yyae682.050.0-170.0 ug/dLTotal Iron Binding Ffkvzlms962.0250.0-450.0 ug/dL Percent Iron Awijhbfarn22.6Performing Lab:see [facility] LB PROF 14(COMP METB) Reviewed date:01/02/2025 06:15:12 PM Interpretation: Performing Lab: Notes/Report: The ,Elpdnw951210-826 mmol/LPotassium4.03.5-5.1 mmol/KQlcjztqq1624-933 mmol/LCarbon Vjxtjid76.421.0-32.0 mmol/LAnion Gap11.4Dnfeqxi7988-402 mg/dLBlood Urea Nitrogen 96.07.0-18.0 mg/dLRESULTS CALLED TO GENE HORNER, RNCreatinine2.130.55-1.02 mg/dL Estimated GFR ( Bzjbfdb75>=60 mL/min/1.73m 2Estimated GFR (Non- Ame23>=60 mL/min/1.73m 2BUN Creatinine Ratio45.6Oyigzbo4.98.5-10.1 mg/dL Bilirubin Total0.30.2-1.0 mg/dLAspartate Amino Qssyxxmtxsm1673-00 U/LAlanine Sjsdcidlwnbruddn8211-47 U/LAlkaline Xyvlwkmdtyk20512-837 U/LTotal Protein6.86.4- 8.2 g/dLAlbumin Level3.13.4-5.0 g/dLGlobulin3.7Albumin Globulin Ratio0.8 Performing Lab:see note - [facility] LBOsmolality Reviewed date:01/02/2025 06:15:12 PM Interpretation: Performing Lab: Notes/Report: [facility] ,[id number] mOsmol/kg Performed at: [address] [id number] [employer]: Nicolas Arenas MD, Phone: [phone] Performing Lab:see note - [facility] LBCBC AUTO DIFF Reviewed date:01/02/2025 06:15:12 PM Interpretation: Performing Lab: Notes/Report: [facility] ,White Blood Count4.94.0-11.0 10 3/uLRed Blood Count3.564.20-5.40 10 6/uL Lxcithqxgi52.912.0-16.0 g/aTXfmtwltshp55.136.0-48.0 %Mean Corpuscular Ccwnzh11.8 81.0-99.0 fLMean Corpuscular Kokemuhdky71.626.7-34.0 pgMean Corpuscular HGB Conc 32.029.9-35.2 g/dLRed Cell Distribution Width13.011.0-15.0 %Platelet Jaeoz189 150-450 10 3/uLMean Platelet Volume9.69.5-13.5 fLNeutrophils Percent Auto60.1 43.0-75.0 %Lymphocytes Percent Auto27.820.5-60.0 %Monocytes Percent Auto8.01.7- 12.0 %Eosinophils Percent Auto3.30.9-7.0 %Basophils Percent Auto0.60.2-2.0 % Immature Granulocytes Pct Auto0.20.0-0.5 %Neutrophils Absolute Auto2.91.4-6.5 10 3/uLLymphocytes Absolute Auto1.41.2-3.8 10 3/uLMonocytes Absolute Auto0.40.3-0.8 10 3/uLEosinophils Absolute Auto0.20.0-0.7 10 3/uLBasophils Absolute Auto0.00.0- 0.1 10 3/uLImmature Granulocytes Abs Auto0.010.00-0.03 10 3/uLPerforming Lab:see noteML - The LBMAGNESIUM Reviewed date:01/02/2025 06:15:12 PM Interpretation: Performing Lab: Notes/Report: The ,Magnesium2.91.8-2.4 mg/dLPerforming Lab:see noteML - The LB MICROALB CREAT RATIO RANDOM Reviewed date:01/02/2025 06:15:12 PM Interpretation: Performing Lab: Notes/Report: The ,Microalbumin Urine Random<1.3<=30.0 mg/dLCreatinine Urine Rolesm82.8220.00- 300.00 mg/dLPerforming Lab:see noteML - [facility] LBPHOSPHORUS Reviewed date:01/02/2025 06:15:12 PM Interpretation: Performing Lab: Notes/Report: The ,Phosphorus5.22.6-4.7 mg/dLPerforming Lab:see note - [facility] LB PROF 14(COMP METB) Reviewed date:01/02/2025 06:15:12 PM Interpretation: Performing Lab: Notes/Report: The ,Fpikfz220543-880 mmol/LPotassium4.83.5-5.1 mmol/UWlzwpncm47715-963 mmol/LCarbon Jucjcrk86.021.0-32.0 mmol/LAnion Gap15.7Ntaqdcb5300-567 mg/dLRESULTS CALLED TO Leidy Brown Urea Btmovzrs05.07.0-18.0 mg/dLCreatinine1.250.55-1.02 mg/dL Estimated GFR ( Ewfctvv80>=60 mL/min/1.73m 2Estimated GFR (Non- Ame43>=60 mL/min/1.73m 2BUN Creatinine Ratio24.7Cvwnlmc3.38.5-10.1 mg/dL Bilirubin Total0.20.2-1.0 mg/dLAspartate Amino Oltbgwecsez8495-20 U/LAlanine Egunjinlsdenxnfh7846-33 U/LAlkaline Bltbubifekp60651-682 U/LTotal Protein6.16.4- 8.2 g/dLAlbumin Level2.93.4-5.0 g/dLGlobulin3.2Albumin Globulin Ratio0.9 Performing Lab:see noteML - The LBUA RANDOM Reviewed date:01/02/2025 06:15:12 PM Interpretation: Performing Lab: Notes/Report: The ,Color UrineLT. YELLOWYELLOWClarity UrineCLEARCLEARSpecific [place] Urine<=1.005 1.005-1.025pH Urine7.05.0-9.0Protein UrineNEGATIVENEG/TRACE mg/dLGlucose Urine UANEGATIVENEGATIVE mg/dLBilirubin UrineNEGATIVENEGATIVEKetones UrineNEGATIVE NEGATIVE mg/dLBlood UrineTRACE-INEGATIVENitrite UrineNEGATIVENEGATIVE Urobilinogen Urine0.20.2-1.0 EU/dLLeukocyte Esterase UrineTRACENEGATIVE Performing [facility] LBURIC ACID SERUM Reviewed date:01/02/2025 06:15:12 PM Interpretation: Performing Lab: Notes/Report: [facility] ,Uric Acid5.82.6-6.0 mg/dLPerforming Lab:see [facility] LB URINE T PROTEIN CREAT RATIO Reviewed date:01/02/2025 06:15:12 PM Interpretation: Performing Lab: Notes/Report: [facility] ,Total Protein Urine Gbxkre65.2<=11.9 mg/dLProtein Creatinine Ratio Urine0.32 Performing Lab:see [facility] LBVITAMIN D 25 OH Reviewed date:01/02/2025 06:15:12 PM Interpretation: Performing Lab: Notes/Report: [facility] ,Vitamin D69.4 <20 ng/mL Vit D deficient 20-<30 ng/mL Vit D insufficient 30-100 ng/mL Vit D sufficient >100 ng/mL Potential Toxicity Performing Lab:see [facility] LBOsmolality Reviewed date:01/06/2025 12:29:14 PM Interpretation: Performing Lab: Notes/Report: [facility] ,[id number] mOsmol/kg Performed at: - [address] [id number] [employer]: Nicolas Arenas MD, Phone: [phone] Performing Lab:see note - [facility] LBPTH, Intact Reviewed date:01/03/2025 12:58:41 PM Interpretation: Performing Lab: Notes/Report: [facility] ,PTH, Nopsgp5436-30 pg/mL Performed at: - [address] [id number] [employer]: Josué Crouch PhD, Phone: [phone] Performing Lab:see [facility] - [facility] LBCBC AUTO DIFF Reviewed date:01/07/2025 04:38:56 PM Interpretation: Performing Lab: Notes/Report: The ,White Blood Count5.34.0-11.0 10 3/uLRed Blood Count3.524.20-5.40 10 6/uL Cskdshoamr39.912.0-16.0 g/hILwfbdwpzmf31.136.0-48.0 %Mean Corpuscular Lmeavv64.9 81.0-99.0 fLMean Corpuscular Thdxgxeyhn98.026.7-34.0 pgMean Corpuscular HGB Conc 32.029.9-35.2 g/dLRed Cell Distribution Width13.311.0-15.0 %Platelet Qmzrt306 150-450 10 3/uLMean Platelet Volume9.39.5-13.5 fLNeutrophils Percent Auto61.3 43.0-75.0 %Lymphocytes Percent Auto25.420.5-60.0 %Monocytes Percent Auto9.31.7- 12.0 %Eosinophils Percent Auto3.20.9-7.0 %Basophils Percent Auto0.60.2-2.0 % Immature Granulocytes Pct Auto0.20.0-0.5 %Neutrophils Absolute Auto3.21.4-6.5 10 3/uLLymphocytes Absolute Auto1.31.2-3.8 10 3/uLMonocytes Absolute Auto0.50.3-0.8 10 3/uLEosinophils Absolute Auto0.20.0-0.7 10 3/uLBasophils Absolute Auto0.00.0- 0.1 10 3/uLImmature Granulocytes Abs Auto0.010.00-0.03 10 3/uLPerforming Lab:see noteML - [facility] LBPROF 14(COMP METB) Reviewed date:01/07/2025 04:38:56 PM Interpretation: Performing Lab: Notes/Report: The ,Itikxv554950-875 mmol/LPotassium4.73.5-5.1 mmol/EDffhxqvc86686-989 mmol/LCarbon Travqtr56.921.0-32.0 mmol/LAnion Gap10.3Qvkuxxt4108-830 mg/dLBlood Urea Nitrogen 34.07.0-18.0 mg/dLCreatinine1.540.55-1.02 mg/dLEstimated GFR ( Jhaupql29 >=60 mL/min/1.73m 2Estimated GFR (Non- Ame34>=60 mL/min/1.73m 2BUN Creatinine Ratio22.0Sltbfhl8.48.5-10.1 mg/dLBilirubin Total0.20.2-1.0 mg/dL Aspartate Amino Iqoovsuyfpz9238-02 U/LAlanine Knppgeckckzqiadr4170-94 U/L Alkaline Rizpmbhjina37208-866 U/LTotal Protein6.26.4-8.2 g/dLAlbumin Level2.5 3.4-5.0 g/dLGlobulin3.7Albumin Globulin Ratio0.7Performing Lab:see noteML - [facility] LBOsmolality Reviewed date:01/11/2025 02:47:53 PM Interpretation: Performing Lab: Notes/Report: [facility] ,Vbiczhbcmv937165-457 mOsmol/kg Performed at: [address] [id number] [employer]: Nicolas Arenas MD, Phone: [phone] Performing Lab:see note - [facility] LBCBC AUTO DIFF Reviewed date:01/21/2025 02:22:57 PM Interpretation: Performing Lab: Notes/Report: [facility] ,White Blood Count4.34.0-11.0 10 3/uLRed Blood Count3.334.20-5.40 10 6/uL Hemoglobin9.912.0-16.0 g/dQDswpkcsoqg14.936.0-48.0 %Mean Corpuscular Meckkm28.8 81.0-99.0 fLMean Corpuscular Ypgfzceibq92.726.7-34.0 pgMean Corpuscular HGB Conc 30.129.9-35.2 g/dLRed Cell Distribution Width13.711.0-15.0 %Platelet Ybwlq828 150-450 10 3/uLMean Platelet Volume8.99.5-13.5 fLNeutrophils Percent Auto58.9 43.0-75.0 %Lymphocytes Percent Auto29.320.5-60.0 %Monocytes Percent Auto7.91.7- 12.0 %Eosinophils Percent Auto3.50.9-7.0 %Basophils Percent Auto0.20.2-2.0 % Immature Granulocytes Pct Auto0.20.0-0.5 %Neutrophils Absolute Auto2.61.4-6.5 10 3/uLLymphocytes Absolute Auto1.31.2-3.8 10 3/uLMonocytes Absolute Auto0.30.3-0.8 10 3/uLEosinophils Absolute Auto0.20.0-0.7 10 3/uLBasophils Absolute Auto0.00.0- 0.1 10 3/uLImmature Granulocytes Abs Auto0.010.00-0.03 10 3/uLPerforming Lab:see note - [facility] LBPROF 14(COMP METB) Reviewed date:01/21/2025 02:22:57 PM Interpretation: Performing Lab: Notes/Report: The ,Aymbbo230122-703 mmol/LPotassium5.33.5-5.1 mmol/JMbvmloix64618-997 mmol/LCarbon Qhtkudt05.521.0-32.0 mmol/LAnion Gap12.8Zvmovvl54804-919 mg/dLBlood Urea Nmkqfqiu74.07.0-18.0 mg/dLCreatinine1.520.55-1.02 mg/dLEstimated GFR ( Qfyjcmi53>=60 mL/min/1.73m 2Estimated GFR (Non- Ame35>=60 mL/min/1.73m 2 BUN Creatinine Ratio19.7Kcigqjv4.58.5-10.1 mg/dLBilirubin Total0.20.2-1.0 mg/dL Aspartate Amino Canmfnxvito5590-23 U/LAlanine Msotzextpvjqktst9127-51 U/L Alkaline Cawpyuzablf14731-356 U/LTotal Protein6.36.4-8.2 g/dLAlbumin Level2.9 3.4-5.0 g/dLGlobulin3.4Albumin Globulin Ratio0.9Performing Lab:see note - [facility] LBOsmolality Reviewed date:01/26/2025 07:39:37 PM Interpretation: Performing Lab: Notes/Report: [facility] ,Uxatrzemex089065-388 mOsmol/kg Performed at: - [facility] [address] [id number] Spout Liner Helper: Nicolas Arenas MD, Phone: [phone] Performing Lab:see noteLC - [facility] LBCT abdomen pelvis w con Reviewed date:01/21/2025 02:22:57 PM Interpretation: Performing Lab: Notes/Report: Source Facility: [place] [address] CT Scan Report Signed Patient: JOSE MOSER MR#: [id number] : 1960 Acct:[id number] Age/Sex: 64 / F ADM Date: 01/21/25 Loc: CT Attending Dr: Agnle Godinez M.D. Ordering Physician: Angle Godinez M.D. Date of Service: 01/21/25 Procedure(s): CT abdomen pelvis w con Accession Number(s): [id number] cc: Angle Godinez M.D. [place] [address] Patient Name: JOSE MOSER MRN: [facility]:[id number] date: 1960 Sex: F Assigned Patient Location: CT Current Patient Location: CT Accession/Order Number: [id number] Exam Date: 01/21/2025 11:45 Report Date: 01/21/2025 [...] Brunner M.D. 01/21/2025 11:54 AM Dictation Location: [place] [address] Electronically authenticated by: [id number] Y Date: 01/21/2025 11:54 Dictated By: Alysia Brunner M.D. Signed By: 01/21/25 1156 DD/ 1154 TD/TT: Beater Engineer Helper:XR lumbar spine 2-3V Reviewed date:01/27/2025 06:31:59 PM Interpretation: Performing Lab: Notes/Report: Source Facility: [place] [address] XRay Report Signed Patient: JOSE MOSER MR#: [id number] : 1960 Acct:[id number] Age/Sex: 64 / F ADM Date: 01/27/25 Loc: RAD Attending Dr: Angle Godinez M.D. Ordering Physician: Angle Godinez M.D. Date of Service: 01/27/25 Procedure(s): XR lumbar spine 2-3V Accession Number(s): [id number] cc: Angle Godinez M.D. [place] [address] Patient Name: JOSE MOSER MRN: [facility]:[id number] date: 1960 Sex: F Assigned Patient Location: [facility] Current Patient Location: [facility] Accession/Order Number: [id number] Exam Date: 01/27/2025 14:32 Report Date: 01/27/2025 [...] STUDY. Impression dictated by: Chris Puri Jr., D.OKianna 01/27/2025 2:35 PM Dictation Location: [place] [address] Electronically authenticated by: [id number] Y Date: 01/27/2025 14:35 Dictated By: Chris Puri M.D. Signed By: 01/27/25 1438 DD/ 34 TD/TT: Beater Engineer Helper:CBC AUTO DIFF Reviewed date:02/04/2025 04:08:34 PM Interpretation: Performing Lab: Notes/Report: The ,White Blood Count5.14.0-11.0 10 3/uLRed Blood Count3.574.20-5.40 10 6/uL Mwltsmcyxm34.612.0-16.0 g/vGWvfvommhuw87.436.0-48.0 %Mean Corpuscular Vwqqfb67.4 81.0-99.0 fLMean Corpuscular Xfijayuyaa82.726.7-34.0 pgMean Corpuscular HGB Conc 30.829.9-35.2 g/dLRed Cell Distribution Width14.711.0-15.0 %Platelet Pixob238 150-450 10 3/uLMean Platelet Volume9.79.5-13.5 fLNeutrophils Percent Auto63.9 43.0-75.0 %Lymphocytes Percent Auto25.820.5-60.0 %Monocytes Percent Auto7.01.7- 12.0 %Eosinophils Percent Auto2.50.9-7.0 %Basophils Percent Auto0.60.2-2.0 % Immature Granulocytes Pct Auto0.20.0-0.5 %Neutrophils Absolute Auto3.31.4-6.5 10 3/uLLymphocytes Absolute Auto1.31.2-3.8 10 3/uLMonocytes Absolute Auto0.40.3- 0.8 10 3/uLEosinophils Absolute Auto0.10.0-0.7 10 3/uLBasophils Absolute Auto0.0 0.0-0.1 10 3/uLImmature Granulocytes Abs Auto0.010.00-0.03 10 3/uLPerforming Lab:see noteML - [facility] LBPROF 14(COMP METB) Reviewed date:02/04/2025 04:08:34 PM Interpretation: Performing Lab: Notes/Report: The ,Jrhbbi256560-233 mmol/LPotassium4.43.5-5.1 mmol/XWlbzzgph06787-876 mmol/LCarbon Lizpmli43.321.0-32.0 mmol/LAnion Gap10.7Rqvvtyz9787-163 mg/dLBlood Urea Nitrogen 23.07.0-18.0 mg/dLCreatinine1.410.55-1.02 mg/dLEstimated GFR ( Atxfrdu91 >=60 mL/min/1.73m 2Estimated GFR (Non- Ame38>=60 mL/min/1.73m 2BUN Creatinine Ratio16.7Xscxxzj2.48.5-10.1 mg/dLBilirubin Total0.20.2-1.0 mg/dL Aspartate Amino Vosmakwmpyc8179-49 U/LAlanine Ajhsukbefahzfvst0153-22 U/L Alkaline Rdubqsndtre64384-510 U/LTotal Protein6.56.4-8.2 g/dLAlbumin Level3.1 3.4-5.0 g/dLGlobulin3.4Albumin Globulin Ratio0.9Performing Lab:see noteML - [facility] LBOsmolality Reviewed date:02/07/2025 08:30:33 AM Interpretation: Performing Lab: Notes/Report: [facility] ,Gcjujvqibw929526-361 mOsmol/kg Performed at: - [facility] [id number] Spout Liner Helper: Nicolas Arenas MD, Phone: [phone] Performing Lab:see noteLC - [facility] LBCBC AUTO DIFF Reviewed date:03/11/2025 02:38:46 PM Interpretation: Performing Lab: Notes/Report: The ,White Blood Count7.04.0-11.0 10 3/uLRed Blood Count3.544.20-5.40 10 6/uL Dhvlrbtyyx69.812.0-16.0 g/dJMwokotdqao68.136.0-48.0 %Mean Corpuscular Qsksmr76.3 81.0-99.0 fLMean Corpuscular Lrujpyqcie54.526.7-34.0 pgMean Corpuscular HGB Conc 31.729.9-35.2 g/dLRed Cell Distribution Width15.611.0-15.0 %Platelet Fgror754 150-450 10 3/uLMean Platelet Volume9.69.5-13.5 fLNeutrophils Percent Auto69.1 43.0-75.0 %Lymphocytes Percent Auto22.720.5-60.0 %Monocytes Percent Auto5.91.7- 12.0 %Eosinophils Percent Auto1.60.9-7.0 %Basophils Percent Auto0.60.2-2.0 % Immature Granulocytes Pct Auto0.10.0-0.5 %Neutrophils Absolute Auto4.81.4-6.5 10 3/uLLymphocytes Absolute Auto1.61.2-3.8 10 3/uLMonocytes Absolute Auto0.40.3-0.8 10 3/uLEosinophils Absolute Auto0.10.0-0.7 10 3/uLBasophils Absolute Auto0.00.0- 0.1 10 3/uLImmature Granulocytes Abs Auto0.010.00-0.03 10 3/uLPerforming Lab:see noteML - [facility] LBPROF 14(COMP METB) Reviewed date:03/11/2025 03:05:23 PM Interpretation: Performing Lab: Notes/Report: The ,Vcnxjm159671-710 mmol/LPotassium5.13.5-5.1 mmol/TTtyowqsh23995-478 mmol/LCarbon Aitbfif98.721.0-32.0 mmol/LAnion Gap15.9Yhukvuo4068-709 mg/dLBlood Urea Nitrogen 29.07.0-18.0 mg/dLCreatinine1.840.55-1.02 mg/dLEstimated GFR ( Vifhagk99 >=60 mL/min/1.73m 2Estimated GFR (Non- Ame28>=60 mL/min/1.73m 2BUN Creatinine Ratio15.9Ualetvc7.18.5-10.1 mg/dLBilirubin Total0.20.2-1.0 mg/dL Aspartate Amino Ovfvjqpbchx7903-96 U/LAlanine Ewdmwhcyyzfoslep0036-55 U/L Alkaline Rkbjtpmrnbk63529-320 U/LTotal Protein7.26.4-8.2 g/dLAlbumin Level3.6 3.4-5.0 g/dLGlobulin3.6Albumin Globulin Ratio1.0Performing Lab:see noteML - [facility] LBOsmolality Reviewed date:03/17/2025 02:33:35 PM Interpretation: Performing Lab: Notes/Report: [facility] ,Zcigxayhpw248217-865 mOsmol/kg Performed at: - [facility] [id number] Spout Liner Helper: Nicolas Arenas MD, Phone: [phone] Performing Lab:see note - [facility] LBCBC AUTO DIFF Reviewed date:03/18/2025 03:01:13 PM Interpretation: Performing Lab: Notes/Report: The ,White Blood Count5.54.0-11.0 10 3/uLRed Blood Count3.544.20-5.40 10 6/uL Saiuppwiqq15.712.0-16.0 g/jQZzwjywrqvv74.536.0-48.0 %Mean Corpuscular Bqzkpe25.5 81.0-99.0 fLMean Corpuscular Srsjugidrx97.226.7-34.0 pgMean Corpuscular HGB Conc 31.029.9-35.2 g/dLRed Cell Distribution Width15.611.0-15.0 %Platelet Ieefn622 150-450 10 3/uLMean Platelet Volume9.29.5-13.5 fLNeutrophils Percent Auto62.6 43.0-75.0 %Lymphocytes Percent Auto27.320.5-60.0 %Monocytes Percent Auto7.51.7- 12.0 %Eosinophils Percent Auto2.00.9-7.0 %Basophils Percent Auto0.40.2-2.0 % Immature Granulocytes Pct Auto0.20.0-0.5 %Neutrophils Absolute Auto3.41.4-6.5 10 3/uLLymphocytes Absolute Auto1.51.2-3.8 10 3/uLMonocytes Absolute Auto0.40.3-0.8 10 3/uLEosinophils Absolute Auto0.10.0-0.7 10 3/uLBasophils Absolute Auto0.00.0- 0.1 10 3/uLImmature Granulocytes Abs Auto0.010.00-0.03 10 3/uLPerforming Lab:see noteML - [facility] LBPROF 14(COMP METB) Reviewed date:03/18/2025 03:01:13 PM Interpretation: Performing Lab: Notes/Report: The ,Wmhpdt242360-303 mmol/LPotassium4.83.5-5.1 mmol/ZHheetnin41563-674 mmol/LCarbon Ahcijoq32.721.0-32.0 mmol/LAnion Gap15.1Sjmpxyo9965-969 mg/dLBlood Urea Nitrogen 32.07.0-18.0 mg/dLCreatinine1.750.55-1.02 mg/dLEstimated GFR ( Lsftjzz13 >=60 mL/min/1.73m 2Estimated GFR (Non- Ame29>=60 mL/min/1.73m 2BUN Creatinine Ratio18.2Xryiijc1.38.5-10.1 mg/dLBilirubin Total0.20.2-1.0 mg/dL Aspartate Amino Upehkjqmxcd4594-57 U/LAlanine Ksswyewjnbxtfrzt5786-51 U/L Alkaline Nbhnaqlxhne09395-076 U/LTotal Protein7.16.4-8.2 g/dLAlbumin Level4.0 3.4-5.0 g/dLGlobulin3.1Albumin Globulin Ratio1.3Performing Lab:see noteML - [facility] LBOsmolality Reviewed date:03/26/2025 12:51:57 PM Interpretation: Performing Lab: Notes/Report: [facility] ,Urhvxqipeh805841-491 mOsmol/kg Performed at: [facility] [address] [id number] Spout Liner Helper: Nicolas Arenas MD, Phone: [phone] Performing Lab:see noteLC - [facility] LBMR thoracic spine wo con Reviewed date:03/18/2025 05:39:28 PM Interpretation: Performing Lab: Notes/Report: Source Facility: [place] [address] Magnetic Resonance Report Signed Patient: JOSE MOSER MR#: [id number] : 1960 Acct:[id number] Age/Sex: 65 / F ADM Date: 03/18/25 Loc: MRI Attending Dr: Angle Godinez M.D. Ordering Physician: Angle Godinez M.D. Date of Service: 03/18/25 Procedure(s): MR thoracic spine wo con Accession Number(s): [id number] cc: Angle Godinez M.D. [place] [address] Patient Name: JOSE MOSER MRN: [id number] date: 1960 Sex: F Assigned Patient Location: MRI Current Patient Location: MRI Accession/Order Number: [id number] Exam Date: 03/18/2025 13:00 Report Date: 03/18/2025 17:09 At the request of: ANGLE GODIENZ MD Procedure: MR thoracic spine wo con [...] stenosis. MR/MR thoracic spine wo con IMPRESSION: Xnuh-vp-iyzxiqcz degenerative changes lower thoracic spine predominantly caused by posterior elements degeneration. Moderate canal narrowing at T10-11 due to hypertrophic changes of the ligamentum flavum. Impression dictated by: Carlyle Alexander M.D. 03/18/2025 5:09 PM Dictation Location: [place] [address] Electronically authenticated by: [id number] Y Date: 03/18/2025 17:09 Dictated By: Carlyle Alexander M.D. Signed By: 03/18/25 1711 DD/ 08 TD/TT: Beater Engineer Helper:MR lumbar spine wo con Reviewed date:03/18/2025 08:46:45 PM Interpretation: Performing Lab: Notes/Report: Source Facility: [place] [address] [place] [address] Magnetic Resonance Report Signed Patient: JOSE MOSER MR#: [id number] : 1960 Acct:[id number] Age/Sex: 65 / F ADM Date: 03/18/25 Loc: MRI Attending Dr: Angle Godinez M.D. Ordering Physician: Angle Godinez M.D. Date of Service: 03/18/25 Procedure(s): MR lumbar spine wo con Accession Number(s): [id number] cc: Angle Godinez M.D. [place] [address] Patient Name: JOSE MOSER MRN: [facility]:[id number] date: 1960 Sex: F Assigned Patient Location: MRI Current Patient Location: MRI Accession/Order Number: [id number] Exam Date: 03/18/2025 13:00 Report Date: 03/18/2025 [...] Estrada M.D. 03/18/2025 5:55 PM Dictation Location: [place] [address] Electronically authenticated by: [id number] Y Date: 03/18/2025 17:55 Dictated By: Fidel Estrada M.D. Signed By: 03/18/251757 DD/ 54 TD/TT: Beater Engineer Helper:CBC AUTO DIFF Reviewed date:04/23/2025 12:58:51 PM Interpretation: Performing Lab: Notes/Report: The ,White Blood Count7.34.0-11.0 10 3/uLRed Blood Count3.394.20-5.40 10 6/uL Fmvchnqkix38.612.0-16.0 g/bCWdfvoituov29.436.0-48.0 %Mean Corpuscular Laakmd55.5 81.0-99.0 fLMean Corpuscular Vlqqnboegp42.326.7-34.0 pgMean Corpuscular HGB Conc 31.729.9-35.2 g/dLRed Cell Distribution Width14.211.0-15.0 %Platelet Eojnb960 150-450 10 3/uLMean Platelet Volume9.29.5-13.5 fLNeutrophils Percent Auto74.7 43.0-75.0 %Lymphocytes Percent Auto15.820.5-60.0 %Monocytes Percent Auto4.81.7- 12.0 %Eosinophils Percent Auto3.90.9-7.0 %Basophils Percent Auto0.40.2-2.0 % Immature Granulocytes Pct Auto0.40.0-0.5 %Neutrophils Absolute Auto5.41.4-6.5 10 3/uLLymphocytes Absolute Auto1.21.2-3.8 10 3/uLMonocytes Absolute Auto0.40.3-0.8 10 3/uLEosinophils Absolute Auto0.30.0-0.7 10 3/uLBasophils Absolute Auto0.00.0- 0.1 10 3/uLImmature Granulocytes Abs Auto0.030.00-0.03 10 3/uLPerforming Lab:see note - [facility] LBPROF 14(COMP METB) Reviewed date:04/23/2025 03:15:14 PM Interpretation: Performing Lab: Notes/Report: The ,Ktkiao843697-528 mmol/LPotassium5.13.5-5.1 mmol/HNhasjgmb37364-747 mmol/LCarbon Pxhtqyw55.721.0-32.0 mmol/LAnion Gap14.8Sqdxpds3985-430 mg/dLBlood Urea Nitrogen 30.07.0-18.0 mg/dLCreatinine2.040.55-1.02 mg/dLEstimated GFR ( Wmpuahn83 >=60 mL/min/1.73m 2Estimated GFR (Non- Ame25>=60 mL/min/1.73m 2BUN Creatinine Ratio14.2Dyrhfko9.48.5-10.1 mg/dLBilirubin Total0.20.2-1.0 mg/dL Aspartate Amino Oxrhzhtqglt9590-49 U/LAlanine Ndjxpwzzpyqsppeg2645-23 U/L Alkaline Huuznapbibn38474-623 U/LTotal Protein6.86.4-8.2 g/dLAlbumin Level3.2 3.4-5.0 g/dLGlobulin3.6Albumin Globulin Ratio0.9Performing Lab:see note - [facility] LBOsmolality Reviewed date:04/28/2025 06:26:40 PM Interpretation: Performing Lab: Notes/Report: [facility] ,Culigzczya057585-255 mOsmol/kg Performed at: - [facility] [id number] Spout Liner Helper: Nicolas Arenas MD, Phone: [phone] Performing Lab:[facility]PR[facility] LBECG 12 lead (Not yet reviewed by provider) Interpretation: Performing Lab: Notes/Report: Source Facility: -[address] [place] [address] [place] [address] Electrocardiograph Report Draft Patient: JOSE MOSER MR#: [id number] : 1960 Acct:[id number] Age/Sex: 65 / F ADM Date: Loc: ER Attending Dr: Ordering Physician: Chapo Venegas M.D. Date of Service: 05/11/25 Procedure(s): ECG 12 lead Accession Number(s): [id number] cc: [facility] Test Date: 2025-05-11 Pat Name: JOSE MOSER Department: Room: - Gender: Female Filling Carrier: : 1960 Requested By: 1030 Order Number: [id number] Reading MD: Measurements Intervals Francis Rate: 90 P: 12 OR: 140 QRS: 44 QRSD: 100 T: 30 QT: 354 QTc: 402 Interpretive Statements 1100 Sinus rhythm 2217 Type-B Ipgnb-Jvpogmkyn-Qpecd syndrome 9150 abnormal ECG No previous ECG available for comparison Dictated By: Yaritza Burgos Signed By: DD/ 0109 TD/TT: Beater Engineer Helper: Reason For Referral Reason Needs new shoulder Diagnosis 1 Shoulder impingement (M75.40) Referral Organization [facility] Referring Provider First Name Vinay Referring Provider Last Name [facility] Referring Provider [facility] Referred Provider Carlos Butterfield Referred Provider Specialty Orthopedic S urgery Referral Priority Routine Diagnosis 1 Abnormal MRI (R93.89 ) Referral Organization [facility] Referring Provider First Name Vinay Referring Provider Last Name [facility] Referring Provider [facility] Referred Provider Robert Farah Referred Provider Specialty [...] tablet as needed Orally qid; Duration: 10 04/05/2024ctiveoxyCODONE-Acetaminophen 5-325 MG2 tablet Orally every 6 hrs as ousbtc985ActiveEntresto 49-51 MG TAKE 1 TABLET BY MOUTH 2 TIMES A DAY; Duration: 30 daysActiveVitamin D (Ergocalciferol) 59280 UNIT1 capsule Orally once a weekActiveDoxepin HCl 25 MG1- 2 capsule at bedtime Orally Once a day; Duration: 30 09/20/2023ctive tiZANidine HCl 4 MGTAKE 1 TABLET BY MOUTH TWO TIMES A DAY AND 2 TABLETS AT BEDTIME (MAX DAILY AMOUNT 4 TABLETS); Duration: 30 daysActiveRollator -Size to fit pt - as directed daily; Duration: 365 days5ActiveAspirin 81 MG1 tablet Orally Once a dayActiveIronActivefentaNYL 100 MCG/HR1 patch to skin Transdermal every 72 hours04/14/2025tiveLevothyroxine Sodium 100 MCG1 tablet in the morning on an empty stomach Orally Once a day; Duration: 90 daysActive Immunizations Vaccine Route Administration Date Status Comme nts Flu, Flublok (53494) 18yr+, single-dose (0992-3930) Unknown 03/11/2023 Administered Pneumococcal (Pneumovax 23)Bcixcvs6404/12/2016AdministeredPneumococcal (Prevnar 20)Hiymnqb0608/19/20221577YgehoeceqqpzGGUV-KSV-6 (COVID 19 Moderna - 100mcg/0.5mL) Yojgejl6708/27/20209029KhyebwzsbxdrZFWK-YCG-9 (COVID 19 Moderna - 100mcg/0.5mL)Unknown 09/24/20208694ZrdgurfhyotoLWIK-VSE-0 (COVID 19) bivalent 30 mcg/0.3 ml doseUnknown 04/07/2022dministeredShingrix (Zoster)Uvaexqv5004/07/2022dministeredShingrix (Zoster)Wkgfqwd4808/19/2022dministered Social History Tobacco Use: Social History Observation Description Date Details (start date - stop date) Never Smoker NA - NA Tobacco Use/Smoking Question Answer Notes Patient is a nonsmoker Alcohol Screen (Audit-C) Question Answer Notes Did you have a drink containing alcohol in the p ast year? No Fbaozt6EelpzouqbfogkzDbpqsxsaJAKXC-Y (Standard) Question Answer Notes Did you have a drink containing alcohol in the p ast year? No Pbrjss6OjkpwarvgbklgxIcopoaen Problems Problem Type SNOMED Code ICD Code Onset Dates Problem Status W/U Status Risk Notes Problem Chronic kidney disease (36833624 4) Chronic kidney disease, unspecified (N18.9) ActiveconfirmedProblemBacterial infection (31089212)Other bacterial infections of unspecified site (A49.8)ActiveconfirmedProblemAnemia in chronic kidney disease (767946529)Anemia in chronic kidney disease (D63.1)Activeconfirmed ProblemDehydration (17325398)Dehydration (E86.0)ActiveconfirmedProblemModerate recurrent major depression (21712444)Major depressive disorder, recurrent, moderate (F33.1)ActiveconfirmedProblemEssential tremor (786276937)Essential tremor (G25.0)ActiveconfirmedProblemMigraine without aura, not refractory (disorder) (774851916)Migraine, unspecified, not intractable, without status migrainosus (G43.909)ActiveconfirmedProblemFlaccid hemiplegia of dominant side (504343308)Flaccid hemiplegia affecting right dominant side (G81.01)Active confirmedProblemRheumatic tricuspid insufficiency (92588303)Rheumatic tricuspid insufficiency (I07.1)ActiveconfirmedProblemPeripheral venous insufficiency (22071795)Venous insufficiency (chronic) (peripheral) (I87.2)Activeconfirmed ProblemLymphedema (077154969)Lymphedema, not elsewhere classified (I89.0)Active confirmedProblemSunburn of second degree (457441472)Sunburn of second degree (L55.1)ActiveconfirmedProblemSebaceous cyst (648671637)Sebaceous cyst (L72.3) ActiveconfirmedProblemShortness of breath (476535027)Shortness of breath (R06.02)ActiveconfirmedProblemSprain of shoulder joint (1197564)Other sprain of right shoulder joint, initial encounter (S43.491A)ActiveconfirmedProblemHistory of fall (414063615)History of falling (Z91.81)ActiveconfirmedProblemMorbid obesity (239825563)Morbid obesity (E66.01)ActiveconfirmedProblemCOPD - Chronic obstructive pulmonary disease (64333150)COPD (chronic obstructive pulmonary disease) (J44.9)ActiveconfirmedProblemGastroesophageal reflux disease (195660221)GERD (gastroesophageal reflux disease) (K21.9)ActiveconfirmedProblem Anxiety (85701412)Anxiety (F41.9)ActiveconfirmedProblemNeck pain (18864750)Neck pain (M54.2)ActiveconfirmedProblemEdema (84855980)Edema (R60.9)Activeconfirmed ProblemLymphedema (17974087)Lymphedema (I89.0)ActiveconfirmedProblemChronic kidney disease (393357355)CKD (chronic kidney disease) (N18.9)Activeconfirmed ProblemEssential hypertension (85861027)Benign essential HTN (I10)Active confirmedProblemMitral valve disorder (43554197)Mild mitral regurgitation (I34.0)ActiveconfirmedProblemInsomnia (001251936)Insomnia (G47.00)Active confirmedProblemChronic kidney disease stage 2 (285793300)Chronic kidney disease (CKD) stage G2/A1, mildly decreased glomerular filtration rate (GFR) ocadrvu86- 89 mL/min/1.73 square meter and albuminuria creatinine ratio less than 30 mg/g (N18.2)ActiveconfirmedProblemKnee pain (0095874917)Knee pain (M25.569)Active confirmedProblemHip pain (95760582)Hip pain (M25.559)ActiveconfirmedProblem Hyponatremia (18557932)Hyponatremia (E87.1)ActiveconfirmedProblemSpinal stenosis in cervical region (18081988)Spinal stenosis in cervical region (M48.02)Active confirmedProblemAltered thought processes (72163203)Cognitive changes (R41.89) ActiveconfirmedProblemOsteoarthritis of knee (337238944)Knee osteoarthritis (M17.9)ActiveconfirmedProblemMigraine (86099548)Migraine (G43.909)Active confirmedProblemDegeneration of cervical intervertebral disc (29468691) Degenerative disc disease, cervical (M50.30)ActiveconfirmedProblemTricuspid valve disorder (58772572)Mild tricuspid regurgitation (I07.1)Activeconfirmed ProblemAcute sinusitis (69796286)Acute sinusitis (J01.90)ActiveconfirmedProblem Mild cognitive impairment (794825483)Mild cognitive impairment (G31.84)Active confirmedProblemOsteoporosis (26926116)Osteoporosis (M81.0)Activeconfirmed ProblemAcquired hypothyroidism (564486182)Acquired hypothyroidism (E03.9)Active confirmedProblemPain of left knee region (finding) (233260051461318)Knee pain, left (M25.562)ActiveconfirmedProblemHypoglycemia (988511490)Hypoglycemia (E16.2) ActiveconfirmedProblemAcquired spondylolisthesis (025587360)Lumbar spondylolysis (M43.06)ActiveconfirmedProblemChronic pain (68504550)Chronic pain (G89.29)Active confirmedProblemIron deficiency anemia (71019090)Iron deficiency anemia (D50.9) ActiveconfirmedProblemPain in limb (82834002)Hand pain, left (M79.642)Active confirmedProblemPeripheral venous insufficiency (28574825)Peripheral venous insufficiency (I87.2)ActiveconfirmedProblemAortic cusp regurgitation (033212082) Aortic cusp regurgitation (I35.1)ActiveconfirmedProblemOverweight (888901521) Over weight (E66.3)ActiveconfirmedProblemTear of right rotator cuff (64327012529692166)Right rotator cuff tear (M75.101)ActiveconfirmedProblemIron deficiency anemia (14189260)Anemia, iron deficiency (D50.9)Activeconfirmed ProblemAnemia of chronic disease (214572240)Anemia of chronic disease (D63.8) ActiveconfirmedProblemOtitis media (63757903)Acute otitis media, right (H66.91) ActiveconfirmedProblemFluid overload (96079651)Fluid overload (E87.70)Active confirmedProblemEndogenous obesity (125794517)Endogenous obesity (E66.8)Active confirmedProblemChronic renal failure syndrome (15094915)Chronic kidney insufficiency (N18.9)ActiveconfirmedProblemDyspnea (753175367)Acute dyspnea (R06.00)ActiveconfirmedProblemDouble vision (62221519)Double vision (H53.2) ActiveconfirmedProblemAcute diarrhea (299376202)Acute diarrhea (R19.7)Active confirmedProblemIdiopathic gout (16330280)Acute gouty arthritis (M10.00)Active confirmedProblemThoracic radiculopathy (63809357)Thoracic radiculopathy (M54.14) ActiveconfirmedProblemIron deficiency anemia (27775751)Iron (Fe) deficiency anemia (D50.9)ActiveconfirmedProblemImpingement syndrome of shoulder (200616218) Impingement syndrome of shoulder (M75.40)ActiveconfirmedProblemC2 cervical fracture (S12.100A)ActiveconfirmedProblemHyperparathyroidism due to renal insufficiency (42729355)Hyperparathyroidism due to renal insufficiency (N25.81) ActiveconfirmedProblemEdema (378944660)Bilateral leg edema (R60.0)Active confirmedProblemArthritis of lumbosacral spine (disorder) (011770712)Lumbar and sacral osteoarthritis (M47.817)ActiveconfirmedProblemAbnormal renal function (03988784)Abnormal renal function (N28.9)ActiveconfirmedProblemChronic heart failure (21420623)Chronic heart failure (I50.9)ActiveconfirmedProblemAcute arthritis (35984026)Acute arthritis (M19.90)ActiveconfirmedProblemTunneled central venous catheter in situ (535845433)Port-a-cath in place (Z95.828)Active confirmedProblemAcute congestive heart failure (50049159)Acute CHF (I50.9)Active confirmedProblemLumbosacral radiculopathy (6576995)Left lumbosacral radiculopathy (M54.17)ActiveconfirmedProblemGastroesophageal reflux disease (disorder) (719516938)Chronic GERD (K21.9)ActiveconfirmedProblemCardiomegaly (1893564)Atrial enlargement, left (I51.7)ActiveconfirmedProblemPulmonary valve insufficiency (04195776)Pulmonary valve insufficiency (I37.1)Activeconfirmed ProblemTransient ischemic attack (disorder) (178353078)Brain TIA (G45.9)Active confirmedProblemVitamin D deficiency (98796084)Unspecified vitamin D deficiency (E55.9)ActiveconfirmedProblemEssential hypertension (73255807)BP (high blood pressure) (I10)ActiveconfirmedProblemBad memory (762624868)Bad memory (R41.3) ActiveconfirmedProblemAbnormal swallowing (45240380)Abnormal swallowing (R13.10) ActiveconfirmedProblemChronic kidney disease stage 2 (906563386)Chronic kidney disease (CKD), stage 2 (mild) (N18.2)ActiveconfirmedProblemSimple goiter (799923777)Nontoxic (diffuse) goiter (E04.0)ActiveconfirmedProblemCHF (congestive heart failure), NYHA class I, acute, combined (I50.41)Active confirmedProblemClosed fracture of trochanter of femur (169188068)Closed displaced fracture of greater trochanter of left femur, initial encounter (S72.112A)ActiveconfirmedProblemSpinal stenosis of lumbar region (81579430) Spinal stenosis at L4-L5 level (M48.061)ActiveconfirmedProblemNeurogenic claudication (636844424)Lumbar stenosis with neurogenic claudication (M48.062) ActiveconfirmedProblemClostridium difficile colitis (disorder) (381755734)C. difficile colitis (A04.72)ActiveconfirmedProblemClostridium difficile colitis (104875068)Clostridium difficile colitis (A04.72)ActiveconfirmedProblemPulmonary hypertension (disorder) (25609630)Chronic pulmonary hypertension (I27.20)Active confirmedProblemCervical arthritis (692657773)Cervical arthritis (M47.812)Active confirmedProblemMRI Scan Abnormal (641298098)Abnormal MRI (R93.89)Active confirmedProblemAcute repetitive seizure (323451913337692)Acute repetitive seizure (G40.909)ActiveconfirmedProblemChronic kidney disease stage 3 (disorder) (134520467)Chronic kidney disease, stage 3 unspecified (N18.30)Activeconfirmed ProblemAcute worsening of stage 3 chronic kidney disease (N18.30)Activeconfirmed ProblemHeadache above the eye region (R51.9)ActiveconfirmedProblemDisease caused by Severe acute respiratory syndrome coronavirus 2 (disorder) (658675452)COVID (U07.1)Activeconfirmed Vital Signs Blood pressure diastolic 92 mm Hg 04/02/2025 Lekcbf41 in04/02/2025lood pressure fkvzudyv673 mm Hg04/02/20254652Ggriwt965.8 lbs 04/02/2025BMI33.61 kg/m204/02/2025 Encounters Encounter Location Date Provider Diagnosis [facility] [address] [place] [address] 07/31/2024 Vinay Hoy Hand pain, left M79. [address] [address] 11/20/2024 Vinay Hoy Cellulitis L03.90 an d Acute repetitive seizure G40.[address] [address] 08/06/2024 Vinay Hoy Acute CHF I50.9 ; Chronic heart failure I50.9 ; History of falling Z91.81 and Right sided abdominal pain R10.[address] [address] 09/20/2024 Vinay Hoy Edema R60.9 ; Benign essential HTN I10 ; Hyponatremia E87.1 and CHF (congestive heart failure), NYHA class I, acute, combined I50.[address] [address] 11/13/2024 Vinay Hoy Acute repetitive seizure G40.909 ; Major depressive disorder, recurrent, moderate F33.1 and Cellulitis L03.[address] [address] 02/19/2025 Vinay Hoy Acute non-recurrent sinusitis, unspecified location J01.90 and Nasal congestion R09.[address] [address] 03/03/2025 Vinay Hoy Benign essential HTN I10 ; Lumbar and sacral osteoarthritis M47.817 ; Left lumbosacral radiculopathy M54.17 and Thoracic radiculopathy M54.[address] [address] 03/18/2025 Vinay Hoy Insomnia G47.00 and Shoulder impingement M75.[address] [address] 04/02/2025 Vinay Hoy Hip pain M25.559 ; Lumbar and sacral osteoarthritis M47.817 and Fluid overload E87.[address] [address] 11/22/2024 Vinay Hoy Cellulitis L03.90 [facility] [address] [facility] [place] [address] 02/18/2025 Ny [facility] [address] [facility] [place] [address]/ Ny [facility] [address] [place] [address]/poorva [facility] [address] [facility] [place] [address]/poorva [facility] [address] [facility] [place] [address]/poorva [facility] [address] [facility] [place] [address]/poorva [facility] [address] [facility] [place] [address]/ Ny [facility] [address] [facility] [place] [address]/poorva [facility] [facility] [address] [facility] [place] [address]/poorva [facility] Oncology [address] [place] [address]/pondva [facility] [address] [facility] [place] [address]/poorva [facility] [address] [facility] [place] [address]/12/2024 Ny [facility] [address] [facility] [place] [address]/poorva [facility] [address] [facility] [place] [address]/poorva [facility] [address] [place] [place] [address]/oug HoyLumbar radiculopathy M54.16[facility] [place] [address]/oug Ho[facility] [facility] [place] [address]/oug HoyBGood [facility] [place] [address]/oug HoySebaceous cyst L72.3BV[facility] [facility] [place] [address]/ Vinay HoyBGood [facility]ar[facility] [facility] [place] [address] 07/02/2024Doug HoyFluid overload E87.70 ; Benign essential HTN I10 and Hyponatremia E87.1BGood [facility]aritan Medical Center[address] [facility] [place] [address]/03/2025Doug HoySebaceous cyst L72.3BV[facility] [address] [facility] [place] [address]/Doug HoyAnxiety F41.9BV[facility] [facility] [place] [address]/ Vinay HoySebaceous cyst L72.3 and Lumbar radiculopathy M54.16[facility] [facility] [place] [address]/Doug Hoy [facility] [facility] [place] [address] 08/06/2024Doug HoyBGood [facility] [facility] [place] [address]/Doug HoyBVThe [facility] Hospital[address] [facility] [place] [address]/Doug HoyC2 cervical fracture S12.100A and Lumbar radiculopathy M54.16BV[facility] [facility] [place] [address]/05/2025Doug HoyRight sided abdominal pain R10.9BS[facility] [facility] [place] [address]/Doug Hoy [facility] [facility] [place] [address] 09/05/2024Doug [facility] [facility] [place] [address]/Doug HoyRight sided abdominal pain R10.9 ; Hand pain, left M79.642 ; Hyperglycemia R73.9 ; Edema R60.9 and Elevated creatine kinase R74.8BS[facility] [facility] [place] [address] 09/18/2024Doug [facility] [facility] [place] [address]/09/2024Doug [facility] [facility] [place] [address]/10/2025Doug HoyRight sided abdominal pain R10.9BS[facility] [facility] [place] [address]/ Vinay HoyEdema R60.9BGood [facility]aritan [facility] Center[address] [facility] [place] [address]/05/2025Doug HoyRight sided abdominal pain R10.9BGood [facility]itan [facility] Center[address] [facility] [place] [address]/Doug [facility] [facility] [place] [address]/08/2024 Vinay [facility] [facility] [place] [address] 12/03/2024Doug HoyRight sided abdominal pain R10.9BS[facility] [place] [address]/Doug HoyCellulitis L03.90BVH [facility] [place] [address] 12/31/2024Doug HoyRight sided abdominal pain R10.9BV[facility] [address] [place] [address]/03/2025Doug [facility] [place] [address]/03/2025Doug HoyBGood [facility] [place] [address]/ Vinay HoyLow back pain at multiple sites M54.50[facility] [address] [facility] [place] [address]/Doug [facility] [place] [address]/06/2024Doug Hoy Cellulitis L03.90[facility] [facility] [place] [address]/09/2024Doug Ho[facility] [place] [address]/12/2024Doug HoyRight sided abdominal pain R10.9BS[facility] [place] [address]/ Vinay HoyCellulitis L03.90[facility] [place] [address]/Doug [facility] [place] [address]/Doug HoyAbnormal MRI R93.89 [facility] [facility] [place] [address] 03/19/2025Doug HoyInsomnia G47.00[facility] [facility] [place] [address]/06/2024Doug HoyBVThe [facility] [address] [place] [address]/02/2025Doug HoyBenign essential HTN I10BVH [facility] [place] [address] 04/03/2025Doug HoyBVThe [facility] [place] [address]/Doug HoyCellulitis L03.90BVThe [facility] [place] [address]/03/2025Doug HoyBenign essential HTN I10 Assessments Encounter Date Diagnosis (ICD Code) Assessment Notes Treatment Notes Treatment Clinical Notes Section Notes 11/20/2024 Cellulitis (ICD-10 - L03.90) 5Acute repetitive seizure (ICD-10 - G40.909)5Cellulitis (ICD- 10 - L03.90)5Acute non-recurrent sinusitis, unspecified location (ICD- 10 - J01.90)Rest and drink more liquids, especially water. You may use a humidifier or vaporizer to help keep the drainage moist. Gmmw-gzm-bjffule Nasal Saline may help the stuffy and runny nose. Use Ibuprofen and or Tylenol as needed for fever, chills, body aches or pain. Children 5 years old should not be given zted-zas-bscxcvg cough and cold medications such as guaifenesin and dextromethorphan. If you're over age 5, you may try vwrx-rkk-qtgajuz cold medications such as guaifenesin and dextromethorphan, [...] L72.3)07/18/2024nxiety (ICD-10 - F41.9)07/22/2024Sebaceous cyst (ICD-10 - L72.3)08/21/2024 cervical fracture (ICD-10 - S12.100A)10/03/2024Right sided abdominal [...] - R10.9)07/31/2024Hand pain, left (ICD-10 - M79.642) 08/06/2024ute CHF (ICD-10 - I50.9)08/06/2024hronic heart failure (ICD-10 - I50.9)09/20/2024Edema (ICD-10 - R60.9)09/20/2024enign essential HTN (ICD-10 - I10)11/13/2024ute repetitive seizure (ICD-10 - G40.909)11/13/2024Major depressive disorder, [...] > 03/08/2024 XR TIB_FIB LT 2V 09/15/2023 ECG 12 lead 05/11/2025 XR thoracic spine 3V 03/22/2023 MRI Arthrogram LT Shoulder 03/15/2024 Insurance Providers Payer Name Payer Address Payer Phone Subscriber Number Group Number Insured Name Patient Relationship to Insured Coverage Start Date Coverage End Date [facility] [employer] [employer] [address] [place] [address] [id number] Jose Moser Self - patient is the insured MEDICAID [place] [address] [facility] [place] [id number] [phone], AngelaSelf - patient is the vsndslf21 2024 Medications Administered Medication Instructions Date of Administration Dosage Notes Ceftriaxone 1 gram gCeftriaxone 1 gram gKenalog-4009/20 mgKenalog-40 mgKenalog-4012/20 li860Ilglymv-3197/27/5530416 mg80 mg wiht 1 cc lidocaineKetorolac Tgzvuoiopnic74/12/202360 mg60 mgKetorolac Tromethamine mgKetorolac Mfvsyuyhlyrw41/12/202360 mg60 mgKetorolac Tromethamine mgKetorolac Pyulcoelunof28/11/389007 ml73Smmzdfivr Tromethamine mgKetorolac Menvanolgrhk33/15/000318 mgKetorolac Tromethamine mg30 - yepKetorolac Bvlkqkdruibh23/03/268411 mgKetorolac Alhcjpajaqmq49/23/810222 mgKetorolac Stzocjtrlavr05/04/326939 mgKetorolac Gbkxhbvevroi26/05/418407 mgKetorolac Ubmhszylzgnb08/15/066735 mgKetorolac Bgsjyemqbprh28/16/394250 et65Jjvptkfsp Turgbcrzetle66/29/472349 tl52Icgcjasuw Yagcidpcfemh93/11/865424 dx52Axqbhubem Qbzcajijmcxy77/21/232536 mgKetorolac Zwtgphkfaoyi08/28/202530 mgKetorolac Shtbtvkazvgo86/30/202530 mgKetorolac Nfagxxficedd90/27/202530 mgLidocaine HCl.1 kJMpfyfdz52 mg60 Ondansetron HCl08/11/414176 ll99Fbhblzuocewy Kexyami01/26/204953 mgOrphenadrine Wkfuiqi150 wa13Xlshyhcxmgsb Fsalbqy54 mgOrphenadrine Citrate 0 mgOrphenadrine Ovvobgk880 md05Hgwekyuptuhw Citrate 460 mgOrphenadrine Ujhyghy10/23/442681 mgOrphenadrine Fndvljl0509/28/2023 60 mgOrphenadrine Yplegxk37/05/899663 mgOrphenadrine Akuqext84/15/113732 mg Orphenadrine Kwpuqoq45/16/496890 wp44Zogzpazpfmeu Ebcdcxn19/29/360087 mg60 Orphenadrine Iotppas500 syIfmxrfxyd36/01/002287 qhBhlxcqiak20/05/890872 uuZhoekrtne11/23/021489 mgPromethazine 25mg325 mg25 mg IMPromethazine 25mg325 mgPromethazine 25mg325 mgPromethazine 25mg31 mLPromethazine 25mg450 mgPromethazine 25mg525 mgPromethazine, 25 mg325 nu43Krjhzssfpiig, 25 mg5 yk64Rlagihzfxtms, 25 mg 42 fH46Ttrttofhwrrx, 25 mg450 ls67Nsaaorfjgwxg, up to 50 mg 450 mgTriamcinolone 40 [...] regurgitation I34.0 epilepsy Surgical History Surgery Date(Month/Year) Trigger pain injection to bilat shoulder blades knee replacementgastric bypassrotator cuffcervical one to cervical two fusion 01-25-24Right Heart Cath11/30/22port pxbaeooto93/19/2023ack surgerygallbladderport Hospitalization History Reason Date(Month/Year) e colie 01/2023 fluid overload 08/2024 fluid overload 04/18 Fluid Overload 12/2023 fluid overload 10/17
--- OUTSIDE RECORDS SUMMARY | 2025-05-11 01:23 | XMS_ITS | Clinical Summary ---
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 Name Role Phone Yuri Godinez MD Primary Care Provider [phone] Social History Tobacco UseTypesPacks/DayYears UsedDateSmoking Tobacco: Never Assessed CommentsUnknownSex and Gender InformationValueDate RecordedSex Assigned at Not on fileLegal TkoOdzizf91/16/2023 2:43 PM EDTGender IdentityNot on fileSexual OrientationNot on file Plan of Treatment Health MaintenanceDue DateLast DoneCommentsHEPATITIS C VIRUS [id number] 1962HIV SCREENING PZGCQOIWRS11/31/1977TDAP (ADULT)1981 CERVICAL CANCER SCREENING ETTSKIYWHH73/31/1983LIPID SIUFEMGOU59/31/2002MAMMOGRAM SCREENING GAZXRFRGND47/31/2002HEP B VACCINE (3 of 3 - 19+ 3-dose series) , 08/01/2006COLORECTAL CANCER SCREENING MRFOUMUMJB00/31/2007 COVID-19 VACCINE ( season)INFLUENZA VACCINE (#1) /10/2021, 04/07/2022, 03/24/2021, Additional history existsRSV VACCINE (1 - 1-dose 75+ series)2037PNEUMOCOCCAL VACCINE SERIESDiscontinued 08/19/2022, 04/12/2016PNEUMOCOCCAL VACCINE ZFSTXPZtvouygjx19/24/2023, 04/12/2016 ZOSTER (SHINGLES) UGNTDFDFnvlwripk27/24/2023, 04/07/2022 Care Teams Team MemberRelationshipSpecialtyStart DateEnd Yuri Godinez MD PCP - GeneralFamily Medicine12/09/22
[2025-05-11 01:38] LABS: Potassium 5.9 mmol/L (3.5-5.1)
[2025-05-11] MEDS: 0.9 % SODIUM CHLORIDE 1,000 ML 1000 ML IV (02:15)
[2025-05-11 02:54] LABS: Anion Gap 18.6; Blood Urea Nitrogen 61.0 mg/dL (7.0-18.0); Calcium 8.1 mg/dL (8.5-10.1); Carbon Dioxide 18.3 mmol/L (21.0-32.0); Chloride 110 mmol/L (98-107); Estimated GFR (African America 15 (>=60 mL/min/1.73m^2); Estimated GFR (Non-African Ame 12 (>=60 mL/min/1.73m^2); Glucose 81 mg/dL (74-106); Potassium 5.9 mmol/L (3.5-5.1); Sodium 141 mmol/L (136-145)
[2025-05-11] MEDS: DEXTROSE 50 %-WATER 25 GM/50 ML SYRINGE IV (03:12)
[2025-05-11] MEDS: INSULIN REGULAR, HUMAN (100 UNIT/ML) 10 ML MDV 10 UNIT IV (03:12)
--- OUTSIDE RECORDS SUMMARY | 2025-05-11 04:41 | XMS_ITS | CCD ---
Author Organization [facility] CliniSyct Care Team Providers Care Business Management Professor Name Role Phone NIRMAL LEWIS Admitting Unavailable [...] Primary Care Provider WALLY Helm Emergency Provider [phone] ROBERT JOHNSTON Attending Unavailable ROBERT JOHNSTON Admitting [...] Unavailable HOY ., DR BARBOUR Attending Unavailable LOWES, DR CARLOS Castillo Consulting Unavailable LAKSHMIPATHY ., [...] DR BARBOUR Attending Unavailable LISACHELA Attending Unavailable LSIAZANDRA Admitting Unavailable HOY ., DR BARBOUR Primary [...] Unavailable MD Yuri Santana Primary Care Provider [phone] MD Beatriz Oh Admit Provider DO Jim [...] Yuri Santana MD M Primary Care Provider [phone] Casimiro ASCENCIO, Raeann Attending Provider Gihellenitis [...] Allergen(s)Allergy TypeDate of OnsetReaction(s) Facility (14 sources)AmoxicillinDrug Bphrrde36-44-6339Jsmdddf, [facility] (6 sources)Amoxicillin / Clavulanate; Translations: [amoxicillin-clavulanate] Drug AllergyWeal (disorder)[facility] (18 sources)Povidone-Iodine; Translations: [POVIDONE-IODINE]Drug Allergy 84-52-2666Mvetvxdo of skin (disorder)[facility] (9 sources)Sulfamethoxazole / TrimethoprimDrug AllergyJohn [facility]. [facility] Other (1 source)sulfaSALAzineDrug AllergyJohn E. Fogarty [facility] Other (8 sources)Amoxicillin / Clavulanate; Translations: [Augmentin]Drug Allergy 83-45-4543XnosxwjIlyMer[facility] (1 source)BumetanideDrug Qfuflxq84-85-9339[facility] (1 source)CephalexinDrug Rrzidzh18-12-8705Exq [facility] (2 sources)gabapentin; Translations: [GABAPENTIN]Drug Jrtwyey32-01-2997Oyq [facility] (4 sources)Povidone-Iodine; Translations: [Betadine]Drug Cxiqqub60-90-3605Zjp [facility] (1 source)pregabalin; Translations: [LYRICA]Drug Tkjtbuf26-32-4677PxwMetro[facility] (11 sources)Sulfonamides (Antibiotic); Translations: [SULFA (SULFONAMIDE ANTIBIOTICS)]Drug allergy (disorder)91-44-0078YogmYjjPrem[facility] (1 source)SulfonamideDrug allergyJohn E. Fogarty [facility] Other (7 sources)Substance with sulfonamide structure and antibacterial mechanism of action (substance)Drug allergyJohn E. Fogarty [facility] Other (7 sources)Clavulanate; Translations: [clavulanic acid]Drug Ikrjkph47-09-8227 DiarrheaW[facility] (1 source)CiprofloxacinDrug Fxgitaw81-70-4318AgpHocking [facility] (1 source)AmoxicillinDrug Czpdevi45-92-2345VhxrmvlujWvumedicine [facility] (1 source)Povidone-IodineDrug Wdlqyuo08-08-3488FuskolfpvW[facility]umedicine [facility] (4 sources)SulfamethoxazoleDrug Mqvsdjf16-01-9172Ntftorb ReactionWvumedicine [facility] (1 source)Sulfonamides (Antibiotic)Drug allergy (disorder)93-36-7975SvvntobmxW[facility]umedicine [facility] (5 sources)Trimethoprim; Translations: [TRIMETHOPRIM]Drug Tdgtouc90-46-8387 Unknown ReactionWvumedicine [facility] (3 sources)AMOXICILLIN-POT CLAVULANATE; Translations: [AMOXICILLIN-POT CLAVULANATE]Propensity to adverse reactions to drug (disorder)06-13-2014 [facility] Rep[facility] (2 sources)Sulfonamides (Antibiotic); Translations: [sulfa drugs]Drug allergy Eruption of skin (disorder)[facility] (1 source)carvedilol; Translations: [CARVEDILOL]Drug Kvphmqu16-26-3037PvonvrwehpTri[facility] (1 source)Cephalexin; Translations: [CEPHALEXIN]Drug Oljextc96-83-7139EykycryihtTriHealth [facility] (1 source)Ciprofloxacin; Translations: [CIPROFLOXACIN]Drug Voslgcw45-92-9106 [facility] (1 source)Iodine; Translations: [IODINE]Drug Itwjdzh64-57-8749GoeptvopslTriHealth [facility] (1 source)pregabalin; Translations: [PREGABALIN]Drug Rovpjvg84-35-3767PrgonpnvfpTriHealth [facility] (1 source)Sulfamethoxazole / Trimethoprim; Translations: [SULFAMETHOXAZOLE-TRIMETHOPRIM]Drug Badobjx63-80-3092CtlsvgtesaTriHealth [facility] Medications Current Medications MedicationDrug Class(es)DatesSig (Normalized)Sig (Original)acetaminophen 300 mg / butalbital 50 mg / caffeine 40 mg oral capsule (6 sources)Barbiturate, Central Nervous System Stimulant, MethylxanthineStart: 96-03-9617flck 1 capsule by mouth every four hoursFioricet oral capsule 1 cap(s), Oral, q4hr Migraine headache, Refill(s) 0 Start Date: 02/12/24 Status: OrderedStart: 10-28-2022 End: 73-48-9309Rjxcpldziu-Acetaminophen-Caff 50-325-40 mg capsule Discontinued 1 CAP PO As Directed as needed for Migraine Headache October 28, 2022 12:00am June 30, 2023 1:53wk576 actuat albuterol 0.09 mg/actuat dry powder inhaler (8 sources)beta2-Adrenergic AgonistStart: 68-09-1213Tziwgmxoh Sulfate 90 mcg/actuation aerosol powdr breath activated Active 2 INH INHALATION Every 6 ho urs as needed March 26, 2024 12:00am Complies with drug therapyStart: 10-28-2022 End: 52-25-8280itbu 1 puff(s) by inhalation every six hours [...] 12:00am Complies with drug therapyStart: 10-28-2022 End: 85-32-9801sahg 1 mL by inhalation every six hours as neededIpratropium- Albuterol 0.5 mg-3 mg(2.5 mg base)/3 mL Solution For Nebulization Discontinued 3 ML INHALATION Q6H as needed for Shortness Of Breath October 28, 2022 12:00am June 30, 2023 1:26amALPRAZolam 0.5 mg oral tablet (19 sources)BenzodiazepineStart: 64-91-6826uymv 1 tablet by mouth once daily at bedtimeAlprazolam 0.5 mg tablet Active 0.5 MG PO Daily at bedtime January 14, 2025 11:09am Complies with drug therapyStart: 03-26-2024 End: 61-34-7208ggsr 1 tablet by mouth twice dailyAlprazolam 0.5 mg tablet Discontinued 0.5 MG PO Twice daily March 26, 2024 12:00am January 14, 2025 11:14amStart: 51-37-9819sptd 1 tablet by mouth twice daily as needed for anxiety alprazolam 0.5 mg Tab 0.5 mg = 1 tab(s), Oral, BID, PRN for anxiety, Refills(s) 0 Start Date: 02/12/24 Status: OrderedStart: 08-31-2018 End: 45-61-1272qnbf 2 tablets by mouth twice daily as [...] 150 mg oral tablet (20 sources)Tricyclic AntidepressantStart: 99-31-4388cwwh 2 tablets by mouth once daily at bedtimeAmitriptyline 150 mg tablet Active 300 MG PO Daily at bedtime January 14, 2025 11:09am Complies withdrug therapyStart: 10-02-2024 End: 21-66-0656plis 1 tablet by mouth twice dailyAmitriptyline 150 mg tablet Discontinued 150 MG PO Twice daily October 02, 2024 2:48pm January 14, 2025 11:14amStart: 10-28-2022 End: 99-83-0070kjaq 2 tablets by mouth at bedtimeAmitriptyline 150 mg tablet Discontinued 300 MG PO Bedtime October 28, 2022 12:00am October 02, 2024 2:58pm Start: 84-55-3998rziq 300 mg by mouth at bedtimeAmitriptyline Active 300 MG PO Bedtime October 28, 2022 12:00amStart: 96-93-7565hkyi 150 mg by mouth once daily Amitriptyline Active 150 MG PO Daily October 28, 2022 12:00amStart: 08-31-2018 End: 17-15-2590fdlw 2 tablets by mouth once dailyAmitriptyline 100 mg Tablet Discontinued 200 MG PO Daily August 31, 2018 1:00am September 04, 2018 7:59am Start: 08-31-2018 End: 37-24-5346qxqm 200 mg by mouth once dailyAmitriptyline Discontinued 200 MG PO Daily August 31, 2018 1:00am September 04, 2018 7:59amatorvastatin 40 mg oral tablet (1 source)HMG-CoA Reductase InhibitorStart: 56-15-2427mlij 1 tablet by mouth once dailyatorvastatin 40 mg Tab 40 mg = 1 tab(s), Oral, Daily, Refills(s) 0 Start Date: 02/12/24 Status: Orderedazelastine hydrochloride 0.5 mg/ml ophthalmic solution (3 sources)Histamine-1 Receptor AntagonistStart: 30-04-6058hkfl 1 drop(s) into the eye(s) once dailyAzelastine 0.05 % drops Active 1 DROPS EYE-BOTH Daily January 14, 2025 11:10am Complies with drug therapyStart: 10-02-2024 End: 58-36-9082hwgo 1 drop(s) into the eye(s) twice dailyAzelastine 0.05 % drops Discontinued 1 DROPS EYE-BOTH Twice daily October 02, 2024 12:00am January 14, 2025 11:14amStart: 69-82-7094svfi 1 drop(s) into the eye(s) twice daily Azelastine 0.05 % drops Active 1 DROPS EYE-BOTH Twice daily October 02, 2024 12:00amB Complex (Folic Acid) - (9 sources)B Complex (Folic Acid) - as directed Orally ONCE A DAY Active butorphanol tartrate 1 mg/actuat metered dose nasal spray (10 sources)Opioid Agonist/AntagonistStart: 38-92-1515slmfolunekm 10 mg/mL Nasal [place] = 1 spray(s), Nasal, Daily, PRN as needed for pain, Refills(s) 0 Start Date: 02/12/24 Status: OrderedStart: 10-28-2022 End: 51-75-0450Tyiunttmyaj 10 mg/mL spray,non-aerosol Active 1 SPRAY INTRANASAL Daily as needed for Migraine Headache June 30, 2023 1:00am Complies with drug therapyStart: 10-28-2022 End: 40-61-3906Rqleyrqwetk Active 1 SPRAY INTRANASAL Daily June 30, 2023 1:00amcalcitriol 0.0005 mg oral capsule (2 sources)Vitamin D3 AnalogStart: 60-62-0602cgmi 1 capsule by mouth once daily Calcitriol [...] 1.25 mg oral capsule (11 sources)Vitamin DStart: 11-47-7294ioor 1 capsule by mouth every week Cholecalciferol (Vitamin D3) 1,250 mcg (50,000 unit) capsule Active 1250 MCG PO every week October 02, 2024 12:00am Complies with drug therapytake 1 capsule by mouth once dailyCholecalciferol 25 MCG (1000 UT) 1 capsule Orally Once a day Activetake 1 capsule by mouth once dailyCholecalciferol 125 MCG (5000 UT) 1 capsule Orally Once a day Qazist31 hr desvenlafaxine succinate 50 mg extended release oral tablet (10 sources)Serotonin and Norepinephrine Reuptake InhibitorStart: 98-55-7490yhzd 1 tablet by mouth once dailydesvenlafaxine 50 mg Tab- 50 mg = 1 tab(s), Oral, Daily, Refills(s) 0 Start Date: 02/12/24 Status: OrderedStart: 06-30-2023 End: 01-50-2899ipyo 1 tablet by mouth once dailyDesvenlafaxine Succinate 100 mg tablet extended release 24 hr Discontinued 100 MG PO Daily June 30, 2023 1:00am January 14, 2025 11:11amStart: 10-28-2022 End: 06-97-4792zcqr 1 tablet by mouth once dailyDesvenlafaxine Succinate 50 mg tablet extended release 24 hr Discontinued 50 MG PO Daily October 28, 2022 12:00am June 30, 2023 1:30amdocusate sodium 250 mg oral capsule (1 source)take 1 capsule by mouth once daily as neededDocusate Sodium 250 MG 1 capsule as needed Orally Once a day NEEDED Activeescitalopram 20 mg oral tablet (6 sources)Serotonin Reuptake InhibitorStart: 17-88-3188axcr 1 tablet by mouth once dailyLexapro 20 mg Tab 20 mg = 1 tab(s), Oral, Daily, Refills(s) 0 Start Date: 02/12/24 Status: OrderedStart: 10-28-2022 End: 02-36-0195zcfe 1 tablet by mouth once dailyEscitalopram Oxalate 20 mg tablet Discontinued 20 MG PO Daily October 28, 2022 12:00am June 30, 2023 1:27am72 hr fentaNYL 0.1 mg/hr transdermal system (20 sources)Opioid AgonistStart: 33-06-1709Hulfwzzu 100 mcg/hr patch 72 hour Active 1 PATCH TRANSDERML Q72H October 28, 2022 12:00am Complies with drug therapy Start: 65-59-2279Welxbfzel-100 transdermal film, extended release = 1 patch(es), Topical, q72hr, EA, Refills(s) 0 Start Date: 09/16/20 Status: OrderedStart: 08-31-2018 End: 72-83-0613Iletjorv 50 mcg/hr Patch 72 Hour Discontinued 1 PATCH TRANSDERML Q72H August 31, 2018 1:00am October 28, 2022 7:54pmfentaNYL 100 MCG/HR 1 patch to skin Transdermal EVERY 72 HOURS ActivefentaNYL 50 MCG/HR 1 patch to skin Transdermal CHANGE EVERY 72 HOURS Activeferrous sulfate 325 mg oral tablet (10 sources)Start: 77-84-8876vtmy 1 tablet by mouth once dailyFerrous Sulfate (Ferosul) 325 mg (65 mg iron) tablet Active 325 MG PO Daily January 14, 2025 12:00amComplies with drug therapyStart: 07-03-2023 End: 32-56-8601fgtl 1 tablet by mouth once dailyFerrous Sulfate 324 mg (65 mg iron) Tablet,Delayed Release (Dr/Ec) Discontinued 324 MG PO Daily July 03, 2023 1:00am March 26, 2024 12:10pmStart: 08-31-2018 End: 16-34-2383meqz 1 tablet by mouth once dailyFerrous Sulfate [...] tablet in pm Orally twice a day Gsatmd74 actuat fluticasone furoate 0.1 mg/actuat / vilanterol 0.025 mg/actuat dry powder inhaler (11 sources)Corticosteroid, beta2-Adrenergic AgonistStart: 03-26-2024 End: 37-48-5657Tfoiztwqucg Furoate-Vilanterol (Breo Ellipta) 100-25 mcg/dose blister with device Active 1 INH INHALATION Daily as needed January 14, 2025 11:11am Complies with drug therapyStart: 15-20-6640bdaa 1 puff(s) by inhalation once dailyBreo Ellipta 100 mcg-25 mcg inhalation powder 1 puff(s), Inhalation, Daily, 30 dose unit Start Date: 09/08/20 Status: OrderedStart: 08-31-2018 End: 52-55-7973Krxcoazgqxi Furoate-Vilanterol (Breo Ellipta) 100-25 mcg/dose Blister With Device Discontinued 1 INH INHALATION Daily August 31, 2018 1:00am June 30, 2023 1:25amStart: 08-31-2018 End: 57-07-4229Pbzxemqrgrc Furoate-Vilanterol (Breo Ellipta) 100-25 mcg/dose Blister With Device Discontinued 1 INH INHALATION Daily August 31, 2018 12:00am June 30, 2023 12:25amStart: 12-82-4864Fcjtcklvtuq Furoate-Vilanterol (Breo Ellipta) 100-25 mcg/dose Blister With [...] sodium 0.1 mg oral tablet (20 sources)l-ThyroxineStart: 58-48-7865xvoh 1 tablet by mouth once daily Levothyroxine 100 mcg tablet Active 100 MCG PO Daily October 28, 2022 12:00am Complies with drug therapyStart: 55-57-1873pqxv 1 tablet by mouth once daily levothyroxine 100 mcg (0.1 mg) Tab 100 mcg = 1 tab(s), Oral, Daily Start Date: 09/08/20 Status: OrderedStart: 08-31-2018 End: 01-46-2015dtlw 1 tablet by mouth once dailyLevothyroxine (Synthroid) 88 mcg Tablet Discontinued 88 MCG PO Daily August 31, 2018 1:00am October 28, 2022 9:37pm linaclotide 0.29 mg oral capsule (18 sources)Guanylate Cyclase-C AgonistStart: 10-02-2024 End: 81-80-0902uazt 1 capsule by mouth once daily as neededLinaclotide (Linzess) 290 mcg capsule Active 290 MCG PO Daily as needed January 14, 2025 11:12am Comp lies with drug therapyStart: 14-98-7146qqlc 1 capsule by mouth once dailyLinzess 290 mcg oral capsule 290 mcg = 1 cap(s), Oral, Daily, Refills(s) 0 Start Date: 02/12/24 Status: OrderedStart: 10-28-2022 End: 06-60-5005Rrfzcpeszzy (Linzess) 290 mcg capsule Discontinued 290 MCG PO Every 48 hours October 28, 2022 12:00am October 02, 2024 2:58pmStart: 23-63-1907cypf 1 capsule by mouth once dailyLinaclotide (Linzess) 290 mcg capsule Active 290 MCG PO Daily October 28, 2022 12:00amLinzess 290 290mcg 1 PO every other day Active Linzess 290 290mcg 1 PO Every AM Activeliothyronine sodium 0.025 mg oral tablet (20 sources)l-TriiodothyronineStart: 19-97-7424pgaz 1 tablet by mouth once daily Cytomel 25 mcg Tab 25 mcg = 1 tab(s), Oral, Daily, Refills(s) 0 Start Date: 02/12/24 Status: OrderedStart: 10-28-2022 End: 50-40-5764qwsn 1 tablet by mouth once dailyLiothyronine 25 mcg Tablet Discontinued 25 MCG PO Daily June 30, 2023 1:00am March 26, 2024 12:09pm take 1 tablet by mouth every twenty-four hoursLiothyronine Sodium 25 MCG 1 tablet on an empty stomach Orally Once a day Activeloratadine 10 mg oral tablet (7 sources)Start: 07-89-8422uckk 1 tablet by mouth once daily as needed Loratadine (Claritin) 10 mg Tablet Active 10 MG PO Daily as needed for Allergy Symptoms June 29, 2023 1:00am Complies with drug therapyMulti For Her - (9 sources)Multi For Her - as directed Orally Activeondansetron 4 mg disintegrating oral tablet (15 sources)Serotonin-3 Receptor AntagonistStart: 00-76-1820lkzc 1 tablet by mouth every six hours as needed for nauseaondansetron 4 mg Dis Tab 4 mg = 1 tab(s), Oral, q6hr, PRN Nausea/Vomiting, Refills(s) 0 Start Date:02/12/24 Status: OrderedStart: 53-93-2175Byejinzlbvp Hcl (Zofran) 4 mg Tablet Active 4 MG PO every 6 to 8 hours as needed for Nausea And Vomiting August 31, 2018 1:00am Complies with drug therapytake 1 tablet by mouth once daily as neededOndansetron 4 MG 1 tablet on the tongue and allow to dissolve Orally Once a day PRN Active primidone 50 mg oral tablet (20 sources)Anti-epileptic AgentStart: 75-73-9068jssh 150 mg by mouth at bedtime Primidone Active 150 MG PO Bedtime March 26, 2024 12:08pmStart: 02-12-2024 take 3 tablets by mouth once dailyprimidone 50 mg Tab 150 mg = 3 tab(s), Oral, Daily, Refills(s) 0 Start Date: 02/12/24 Status: OrderedStart: 06-29-2023 End: 64-04-9170ulqu 1 tablet by mouth at bedtimePrimidone 50 mg tablet Active 150 MG PO Bedtime March 26, 2024 12:08pm Complies with drug therapyStart: 06-29-2023 End: 18-13-8006yady 100 mg by mouth at bedtimePrimidone Discontinued 100 MG PO Bedtime June 29, 2023 1:00am March 26, 2024 12:11pmStart: 08-31-2018 End: 84-17-3504iwsq 1 tablet by mouth twice dailyPrimidone 50 mg Tablet Discontinued 100 MG PO Twice daily August 31, 2018 1:00am September 04, 2018 7: 59amStart: 08-31-2018 End: 11-07-7942skjj 100 mg by mouth twice dailyPrimidone Discontinued [...] oral tablet (20 sources)Angiotensin 2 Receptor BlockerStart: 49-29-9145kkan 1 tablet by mouth twice dailySacubitril-Valsartan (Entresto) 49-51 mg tablet Active 1 TAB PO Twice daily October 02, 2024 12:00amComplies with drug therapyStart: 06-29-2023 End: 32-51-0072zoei 1 tablet by mouth twice dailySacubitril-Valsartan (Entresto) 97-103 mg tablet Discontinued 1 TAB PO Twice daily June 29, 2023 1:00am March 26, 2024 12:10pm On Hold: Resume when kidney function has returned to baseline pernephrologyStart: 10-28-2022 End: 36-50-7169nptf 1 tablet by mouth twice dailySacubitril-Valsartan (Entresto) [...] oral capsule (17 sources)Central alpha-2 Adrenergic AgonistStart: 85-42-9802tkiv 1 capsule by mouth twice daily as neededTizanidine 4 mg capsule Active 4 MG PO Twice daily as needed October 02, 2024 12:00am Complies with drug therapyStart: 09-08-2020 take 2 tablets by mouth every eight hourstiZANidine 4 mg Tab 8 mg = 2 tab(s), Oral, q8hr Start Date: 09/08/20 Status: OrderedStart: 08-31-2018 End: 73-53-1579rhis 1 capsule by mouth three times daily [...] b12 1 mg/ml injectable solution (3 sources)Vitamin W59Hckrp: 87-56-0095ofyafn 100 ug by subcutaneous injection every monthCyanocobalamin (Vitamin B-12) 1,000 mcg/mL kit Active 100 MCG SUBCUT every month October 02, 2024 12:00am Complies with drug therapyStart: 02-12-2024 inject 1000 ug by intramuscular injection every monthcyanocobalamin 1000 mcg/mL Inj 1,000 mcg, IntraMuscular, qMonth, Refills(s) 0 Start Date: 02/12/24 Status: Orderedvitamin e 180 mg oral capsule (1 source)Start: 69-77-1513rcjw 1 capsule by mouth once dailyVitamin E (Dl, Acetate) 180 mg (400 unit) capsule Active 180 MG PO Daily January 14, 2025 12:00am Complies with drug therapy Completed/Discontinued Medications MedicationDrug Class(es)DatesSig (Normalized)Sig (Original)acetaminophen 325 mg / oxyCODONE hydrochloride 5 mg oral tablet (19 sources)Opioid AgonistStart: 06-29-2023 End: 66-80-4181mimn 1 tablet by mouth twice daily as needed for painOxycodone- Acetaminophen (Percocet) 5-325 mg tablet Discontinued 1 TAB PO 2 times daily as needed for Pain June 29, 2023 1:00am June 30, 2023 11:41amStart: 54-61-8573hvjb 1 tablet by mouth every six hours as needed for painOxycodone- Acetaminophen (Percocet) 5-325 mg Tablet Active 1 - 2 TAB PO Q6H as needed for Pain 2018 1:00am Complies with drug therapyStart: 94-78-6683jpqn 2 tablets by mouth every four to six hoursOxycodone-Acetaminophen (Percocet) 5-325 mg Tablet Active 2 TAB PO EVERY 4-6 HOURS August 31, 2018 1:00amtake 2 tablets by mouth every four hours as neededoxyCODONE-Acetaminophen 5-325 MG 2 tablet as needed Orally every 4 hrs PRN Activeapixaban 5 mg oral tablet (4 sources)Factor Xa InhibitorStart: 03-26-2024 End: 11-37-9885ckul 1 tablet by mouth twice dailyApixaban (Eliquis) 5 mg tablet Discontinued 5 MG PO Twice daily March 26, 2024 12:00am January 14, 2025 11:10amStart: 86-30-4560tyyo 1 tablet by mouth twice dailyEliquis 5 mg oral tablet 5 mg = 1 tab(s), Oral, BID, Refills(s) 0 Start Date: 02/12/24 Status: OrderedARIPiprazole 2 mg oral tablet (14 sources)Atypical AntipsychoticStart: 10-28-2022 End: 04-33-0513fbqp 1 tablet by mouth once dailyAripiprazole 2 mg tablet Discontinued 2 MG PO Daily October 28, 2022 12:00am October 02, 2024 2:49pmaspirin 81 mg delayed release oral tablet (3 sources)Platelet Aggregation Inhibitor, Nonsteroidal Anti-inflammatory Drug Start: 10-02-2024 End: 84-84-0072ihkz 1 tablet by mouth once dailyAspirin (Adult Aspirin Regimen) 81 mg tablet,delayed release (DR/EC) Discontinued 81 MG PO Daily October 02, 2024 12:00am January 14, 2025 11:10amStart: 98-20-5203xemlnlb 81 mg Chew Tab 81 mg = 1 tab(s), Chewed, Daily, Refills(s) 0 Start Date: 02/12/24 Status: Ordered bumetanide 1 mg oral tablet (20 sources)Loop DiureticStart: 10-02-2024 End: 69-64-7924juhe 1 tablet by mouth twice dailyBumetanide 1 mg tablet Discontinued 2 MG PO Twice daily October 02, 2024 2:50pm October 02, 2024 3:17pm Start: 03-26-2024 End: 36-07-7686ihdh 1 tablet by mouth three times daily as neededBumetanide 1 mg tablet Discontinued 2 MG PO Three times daily as needed March 26, 2024 12:03pm October 02, 2024 2:58pmStart: 55-62-5033zqnf 2 mg by mouth three times dailyBumetanide Active 2 MG PO Three times daily March 26, 2024 12:03pmStart: 07-78-9054zocz 1 tablet by mouth twice dailybumetanide 2 mg Tab 2 mg = 1 tab(s), Oral, BID, Refills(s) 0 Start Date: 02/12/24 Status: OrderedStart: 07-03-2023 End: 69-54-3390tuza 1 tablet by mouth twice dailyBumetanide 1 mg tablet Discontinued 2 MG PO Twice daily 60 July 03, 2023 2:00pm March 26, 2024 12:11pm Take twice dailyStart: 07-03-2023 End: 84-41-3748helj 6 mg by mouth once daily as neededBumetanide 1 mg tablet Discontinued 2 MG PO Twice daily 60 July 03, 2023 2:00pm July 03, 2023 1:50pm MAY TAKE UP TO 6 MG DAILY PRNStart: 07-03-2023 End: 43-48-9915xesx 6 mg by mouth once daily as neededBumetanide 1 mg tablet Discontinued 2 MG PO Twice daily 60 July 03, 2023 2:00pm July 03, 2023 1:50pm MAY TAKE UP TO 6 MG DAILY PRNStart: 07-03-2023 End: 61-01-8076sqvv 6 mg by mouth once daily as neededBumetanide Discontinued 2 MG PO Twice daily 60 July 03, 2023 2:00pm July 03, 2023 1:50pm MAY TAKE UP TO 6 MG DAILY PRNStart: 07-03-2023 End: 23-41-9469znfl 2 mg by mouth twice dailyBumetanide Discontinued 2 MG PO Twice daily 60 July 03, 2023 2:00pm March 26, 2024 12:11pm Take twice dailyStart: 07-03-2023 End: 52-76-3795uebm 6 mg by mouth once daily as neededBumetanide Discontinued 2 MG PO Twice daily 60 July 03, 2023 1:00pm July 03, 2023 12:50pm MAY TAKE UP TO 6 MG DAILY PRNStart: 10-28-2022 End: 56-93-8395ojij 6 mg by mouth once daily as needed for edemaBumetanide 1 mg tablet Discontinued 2 MG PO Daily as needed for Edema October 28, 2022 12:00am 2023 1:49pm MAY TAKE UP TO 6 MG DAILY PRNStart: 10-28-2022 End: 80-59-6073cbtz 6 mg by mouth once daily as neededBumetanide Discontinued 2 MG PO Daily October 28, 2022 12:00am July 03, 2023 1:49pm MAY TAKE UP TO6 MG DAILY PRNStart: 90-36-3374gthu 1 mg by mouth three times dailyBumetanide Active 1 MG PO Three times daily October 28, 2022 12:00amStart: 08-31-2018 End: 17-64-8758wepw 1 tablet by mouth once dailyBumetanide 2 mg Tablet Discontinued 2 MG PO Daily August 31, 2018 1:00am October 28, 2022 7:46pmtake 1 tablet by mouth every twenty-four hoursBumetanide 1 MG 1 tablet Orally Once a day Drkieu00 hr buPROPion hydrochloride 300 mg extended release oral tablet (5 sources)AminoketoneStart: 08-31-2018 End: 95-57-0967isgz 1 tablet by mouth once daily in the morningBupropion Hcl (Wellbutrin Xl) 300 mg Tablet Extended Release 24 Hr Discontinued 300 MG PO Every morning August 31, 2018 1:00am June 30, 2023 1:27amcalcium acetate 667 mg oral capsule (9 sources)Start: 10-28-2022 End: 03-08-6908hadq 1 capsule by mouth twice daily at [...] mg/mg topical gel (1 source)Nonsteroidal Anti-inflammatory DrugStart: 39-67-3810Wrhloqax Gel 1% Gel 2 gm, Topical, BID, Refill(s) 0 Start Date: 02/12/24 Status: Ordered dicyclomine hydrochloride 20 mg oral tablet (6 sources)AnticholinergicStart: 10-28-2022 End: 22-03-8182Ycukfeaccyp 20 mg Tablet Discontinued 20 MG PO As Directed as needed for Abdominal Pain October 28, 2022 12:00am June 30, 2023 1:30amtake 1 tablet by mouth four times daily as neededDicyclomine HCl 20 MG 1 tablet Orally Four times a day NEEDED Activedoxepin hydrochloride 10 mg oral capsule (3 sources)Tricyclic AntidepressantStart: 10-02-2024 End: 08-77-0101bjse 1 capsule by mouth once dailyDoxepin 10 mg capsule Discontinued 10 MG PO Daily October 02, 2024 12:00am January 14, 2025 11:11am Start: 57-76-0890lxum 1-2 capsules by mouth once daily at bedtimedoxepin 10 mg Cap 1-2 caps, Oral, Once a day (at bedtime), Refills(s) 0 Start Date: 02/12/24 Status:OrderedDULoxetine 60 mg delayed release oral capsule (14 sources)Serotonin and Norepinephrine Reuptake InhibitorStart: 10-28-2022 End: 97-11-1674vbxc 2 capsules by mouth once dailyDuloxetine 60 mg capsule,delayed release(DR/EC) Discontinued 120 MG PO Daily October 28, 2022 12:00am March 26, 2024 12:05pmStart: 10-28-2022 End: 41-81-0483lotw 120 mg by mouth once dailyDuloxetine Discontinued 120 MG PO Daily October 28, 2022 12:00am March 26, 2024 12:05pmtake 1 capsule by mouth every twelve hoursDULoxetine HCl 60 MG 1 capsule Orally Twice a day Active fluconazole 100 mg oral tablet (5 sources)Azole AntifungalStart: 08-31-2018 End: 63-74-1567sfsw 1 tablet by mouth once dailyFluconazole 100 mg Tablet Discontinued 100 MG PO Daily August 31, 2018 1:00am September 04, 2018 7:59am gabapentin 100 mg oral capsule (4 sources)Anti-epileptic AgentStart: 06-29-2023 End: 43-68-7693uata 1 tablet by mouth three times dailyGabapentin 100 mg Tablet Discontinued 100 MG PO Three times daily June 29, 2023 1:00am March 26, 2024 12:05pmhydrALAZINE hydrochloride 25 mg oral tablet (19 sources)Arteriolar VasodilatorStart: 10-02-2024 End: 22-08-9604tqex 1 tablet by mouth four times dailyHydralazine 25 mg tablet Discontinued 25 MG PO Four times daily October 02, 2024 12:00am January 14, 2025 11:12amStart: 09-08-2020 End: 52-54-4939kuto 1 tablet by mouth three times dailyHydralazine 50 mg Tablet Discontinued 50 MG PO Three times daily October 28, 2022 12:00am June 1:22amhyoscyamine sulfate 0.125 mg oral tablet (12 sources)Start: 03-26-2024 End: 91-93-5606sxlc 1 tablet by mouth once daily as neededHyoscyamine Sulfate 0.125 mg tablet Discontinued 0.125 MG PO Daily as needed March 26, 2024 12:00 am October 02, 2024 2:55pmtake 1 tablet by mouth every six hoursHyoscyamine Sulfate 0.125 MG 1 tablet on the tongue and allow to dissolve Orally Four times a day ActivelevoFLOXacin 750 mg oral tablet (5 sources)Quinolone AntimicrobialStart: 08-31-2018 End: 92-69-6490qoej 1 tablet by mouth once dailyLevofloxacin 750 mg Tablet Discontinued 750 MG PO Daily August 31, 2018 1:00am September 04, 2018 7:59am metoclopramide 5 mg oral tablet (13 sources)Dopamine-2 Receptor AntagonistStart: 08-31-2018 End: 66-98-1602acua 1 tablet by mouth once dailyMetoclopramide Hcl (Reglan) 5 mg Tablet Discontinued 5 MG PO Daily August 31, 2018 1:00am June 30, 2023 1:26amtake 1 tablet by mouth every six hoursMetoclopramide HCl 10 MG 1 tablet before meals Orally Four times a day Activemetoprolol tartrate 25 mg oral tablet (14 sources)beta-Adrenergic BlockerStart: 08-31-2018 End: 30-25-8791mxvu 1 tablet by mouth twice dailyMetoprolol Tartrate 25 mg Tablet Discontinued 25 MG PO Twice daily August 31, 2018 1:00am March 26, 2024 12:10pmStart: 64-40-3544utwq 50 mg by mouth twice dailyMetoprolol Tartrate Active 50 MG PO Twice daily August 31, 2018 1:00amtake 1 tablet by mouth every twelve hoursMetoprolol Tartrate 50 MG 1 tablet with food Orally Twice a day Not-Taking/VBHPu-Yenaija-Yym-Iron Fm-Fa-Vitk (Multi For Her) 18 mg iron-600 mcg- 80 mcg Tablet (5 sources)Start: 08-31-2018 End: 62-14-7794tjaw 1 tablet by mouth once verdfLm-Qsyfofv-Tha-Iron Fm-Fa-Vitk (Multi For Her) 18 mg iron-600 mcg-80 mcg Tablet Discontinued 1 TAB PO Daily August 31, 2018 1:00am June 30, 2023 1:26amStart: 08-31-2018 End: 79-11-8041hbgd 1 tablet by mouth once finsdMl-Kczbsss-Dcw-Iron Fm-Fa-Vitk (Multi For Her) 18 mg iron-600 mcg-80 mcg Tablet Discontinued 1 TAB PO Daily August 31, 2018 12:00am June 30, 2023 12:26amStart: 45-71-8524ucos 1 tablet by mouth once dsdaoQp-Nvlxukm-End-Iron Fm-Fa-Vitk (Multi For Her) 18 mg iron-600 mcg-80 mcg Tablet Active 1 TAB PO Daily August 31, 2018 1:00ampantoprazole 40 mg delayed release oral tablet (20 sources)Proton Pump InhibitorStart: 10-02-2024 End: 93-52-0275xtet 1 tablet by mouth once dailyPantoprazole 40 mg tablet,delayed release (DR/EC) Discontinued 40 MG PO Daily October 02, 2024 12:00am January 14, 2025 11:13amStart: 49-88-8137vzcp 1 tablet by mouth once dailyProtonix 40 mg Tab-DR 40 mg = 1 tab(s), Oral, Daily, Refills(s) 0 Start Date: 02/12/24 Status: OrderedStart: 06-30-2023 End: 81-75-6089pslj 1 tablet by mouth twice dailyPantoprazole (Protonix) 40 mg Tablet,Delayed Release (Dr/Ec) Discontinued 40 MG PO Twice daily June 30, 2023 1:00am March 26, 2024 12:10pmStart: 08-31-2018 End: 69-69-2074ixjf 2 tablets by mouth twice dailyPantoprazole (Protonix) 20 mg Tablet,Delayed Release (Dr/Ec) Discontinued 40 MG PO Twice daily August 31, 2018 1:00am June 30, 2023 11:41amStart: 14-84-1144gcyq 1 tablet by mouth once dailyPantoprazole (Protonix) 20 mg Tablet,Delayed Release (Dr/Ec) Active 20 MG PO Daily August 31, 2018 1:00ampotassium chloride 10 meq extended release oral capsule (9 sources)Start: 08-31-2018 End: 92-69-9270iyan 1 capsule by mouth once dailyPotassium Chloride [...] tablet (5 sources)Nonergot Dopamine AgonistStart: 06-30-2023 End: 68-40-7644kfyz 1 tablet by mouth once dailyPramipexole (Mirapex) 1 mg Tablet Discontinued 1 MG PO Daily June 30, 2023 1:00am January 14, 2025 11:13amrosuvastatin calcium 20 mg oral tablet (3 sources)HMG-CoA Reductase InhibitorStart: 03-26-2024 End: 27-13-1307vqls 1 tablet by mouth once dailyRosuvastatin 20 mg tablet Discontinued 20 MG PO Daily March 26, 2024 12:00am October 02, 2024 2:57pm sevelamer carbonate 800 mg oral tablet (15 sources)Phosphate BinderStart: 06-29-2023 End: 15-95-8971ubsg 1 tablet by mouth three times daily at mealtimeSevelamer Carbonate (Renvela) 800 mg tablet Discontinued 800 MG PO Three times daily 90 January 18, 2024 9:55am March 26, 2024 12:10pm must administer with a meal/foodsodium chloride 1000 mg oral tablet (5 sources)Start: 08-31-2018 End: 46-91-2113Vyacns Chloride 1 gram Tablet Discontinued 1000 MG PO 1 to 4 times daily as needed for Electrolyte Replenishment August 31, 2018 1:00am September 04, 2018 8:01amStart: 08-31-2018 End: 21-01-1129Bxusyy Chloride Discontinued 1000 MG PO 1 to 4 times daily August 31, 2018 1:00am September 04, 2018 8:01amspironolactone 50 mg oral tablet (8 sources)Aldosterone AntagonistStart: 10-02-2024 End: 47-64-0763ncsx 1 tablet by mouth twice dailySpironolactone 50 mg tablet Discontinued 50 MG PO Twice daily 60 October 02, 2024 12:00am December 11:14amStart: 18-01-5116kxks 1 tablet by mouth twice dailyspironolactone 100 mg Tab 100 mg = 1 tab(s), Oral, BID, Refills(s) 0 Start Date: 02/12/24 Status: Ord eredStart: 08-31-2018 End: 34-23-0124fecy 2 tablets by mouth once dailySpironolactone 50 mg Tablet Discontinued 100 MG PO Daily August 31, 2018 1:00am June 30, 2023 1:31am Start: 08-31-2018 End: 01-88-9495jkzv 100 mg by mouth once dailySpironolactone Discontinued 100 MG PO Daily August 31, 2018 1:00am June 30, 2023 1:31amtorsemide 100 mg oral tablet (2 sources)Loop DiureticStart: 10-02-2024 End: 86-48-4828Chgwcwcbk 100 mg tablet Discontinued 50 MG PO Twice daily 60 October 02, 2024 12:00am January 14, 2025 11:14amUrea (Ure-Na) 15 gram Powder In Packet (5 sources)Start: 09-04-2018 End: 79-87-9307Ysuy (Ure-Na) 15 gram Powder In Packet Discontinued 30 GM PO Daily September 04, 2018 12:00am June 30, 2023 1:30amStart: 09-04-2018 End: 00-63-3256Eyfx (Ure-Na) 15 gram Powder In Packet Discontinued 30 GM PO Daily September 03, 2018 11:00pm June 30, 2023 12:30amStart: 16-49-4233Eboh (Ure-Na) 15 gram Powder In Packet Active 30 GM PO Daily September 04, 2018 12:00amVitamin D 50,000 intl units (1.25 mg) oral capsule (1 source)Start: 62-05-9727vqhz 1 capsule by mouth every weekVitamin D 50,000 intl units (1.25 mg) oral capsule 50,000 International_Unit = 1 cap(s), Oral, qWeek, Refills(s) 0 Start Date: 02/12/24 Status: Ordered Problems Active Problems Problem ClassificationProblemDateDocumented DateEpisodic/ChronicAcute and unspecified renal failure (7 sources)Acute kidney failure, unspecified; Translations: [Acute renal failure syndrome]Onset: 042780-10-0305AwntgfnzUioix cerebrovascular disease (1 source)Occlusion of cerebral artery with strokeOnset: ChronicAcute posthemorrhagic anemia (1 source)Acute posthemorrhagic anemia; Translations: [ACUTE POSTHEMORRHAGIC ANEMIA]Onset: 29-01-5646BsomfmzzPbzaivr disorders (2 sources)Anxiety disorder, unspecified; Translations: [Anxiety]Onset: 566016-30-7765MlxgtyeHkuwxq; peripheral; and visceral artery aneurysms (1 source)Dissection of vertebral artery; 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]Onset: 56-92-5710RafhoghPcypbhxxi infection; unspecified site (1 source)Unspecified Escherichia coli [E. coli] as the cause of diseases classified elsewhere; Translations:[UNS E COLI CAUSE DX CLASS ELSEWHERE]Onset: 37-31-7513CivhffvwTimpjjd kidney disease (20 sources)Chronic kidney disease stage 3; Translations: [Chronic kidney disease, stage 3 (moderate)]Onset: 333324-80-2526FxicfkdSusesrz on above: Problem List clean-up per request of Phys. EHR CmteChronic obstructive pulmonary disease and bronchiectasis (1 source)Chronic obstructive pulmonary disease, unspecified; Translations: [COPD UNSPECIFIED]Onset: 56-46-8819QugqqucPtdmgjwqcpfg of device; implant or graft (5 sources)Other mechanical complication of infusion catheter, initial encounter; Translations: [Other mechanical complication of other cardiac and vascular devices and implants, initial encounter]Onset: 49-60-1374Exbzrqek Congestive heart failure; nonhypertensive (20 sources)Congestive heart failure; Translations: [Heart failure, unspecified] Onset: 06-16-2021 Resolved: 70-21-8780FqrcdmbKdbeuke on above:Problem List clean-up per request of Phys. 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; Translations: [SEC SIDEROBLASTIC ANEMIA DUE DZ]Onset: 16-30-4139ZsmtyaoEhtrupuqwt and other anemia (7 sources)Anemia; Translations: [Anemia, unspecified]31-41-0196Evzsctuy Deficiency and other anemia (5 sources)Anemia, unspecified; Translations: [Anemia, unspecified]Onset: 656034-97-8751XmvtjrfvNnhcudxtpf and other anemia (1 source)Iron deficiency anemia, unspecified; Translations: [IRON DEFICIENCY ANEMIA UNSPECIFIED]Onset: 81-33-0690RpkklyvbT Codes: Adverse effects of medical drugs (1 source)Adverse effect of gvcsxeykhvr-siovttbamr-dfhlkp inhibitors, initial encounter; Translations: [ADVERSE EFFECT ACEI INITIAL ENCNTR]Onset: 09-22-2022 EpisodicEpilepsy; convulsions (1 source)Epilepsy, unspecified, not intractable, without status epilepticus; Translations: [EPILEPSY UNS NOTINTRACT W/O SE]Onset: 80-13-1433DsnlkiuIbvlhyabmh disorders (2 sources)Gastro-esophageal reflux disease without esophagitis; Translations: [Gastroesophageal reflux disease]Onset: 764000-13-7636MmptqzjSttyrbxhv hypertension (16 sources)Hypertensive disorder; Translations: [Essential (primary) hypertension]Onset: 946109-73-5774FmgceonFzuws and electrolyte disorders (20 sources)Hypervolemia; Translations: [Fluid overload, unspecified]Onset: 06-16-2021 Resolved: 51-66-4181YxnncrxePpgh and other crystal arthropathies (1 source)Gouty arthropathyOnset: 355632-68-0477DtrqzcvHuwhfhkn; including migraine (12 sources)Refractory migraine with aura; Translations: [Persistent migraine aura without cerebral infarction,intractable, without status migrainosus]Onset: 77-72-7729MxjikzaJewhphgn; including migraine (5 sources)Headache; including migraine; Translations: [HEADACHE UNSPECIFIED] Onset: 90-88-6437Bazko valve disorders (6 sources)Rheumatic disorders of both mitral and tricuspid valves; Translations: [Rheumatic tricuspid insufficiency]Onset: ChronicHypertension with complications and secondary hypertension (20 sources)Hypertensive renal disease; Translations: [Hypertensive chronic kidney disease with stage 1 throughstage 4 chronic kidney disease, or unspecified chronic kidney disease]Onset: 06-16-2021 Resolved: 08-66-5547EkjstflWbzzvfy on above:Problem List clean-up per request of Phys. EHR CmteJoint disorders and dislocations; trauma-related (1 source)Subluxation of unspecified cervical vertebrae, initial encounter; Translations: [Subluxation of unspecified cervical vertebrae, initial encounter] Onset: 64-43-8786PlwezywgTwpbjqr and fatigue (10 sources)Asthenia; Translations: [Weakness]Onset: EpisodicMenopausal disorders (4 sources)Postmenopausal bleeding; Translations: [POSTMENOPAUSAL BLEEDING] Onset: 81-88-5517HlufvgsFymg disorders (1 source)Depressive disorderOnset: 534690-64-6452QgiftmkNocr disorders (1 source)Mood disorders; Translations: [DEPRESSION UNSPECIFIED]Onset: 11-59-6458Cpfmcs and vomiting (9 sources)Nausea; Translations: [Nausea]EpisodicNutritional deficiencies (20 sources)Vitamin D deficiency; Translations: [Vitamin D deficiency, unspecified]Onset: 01-11-2021 Resolved: 99-73-1032MnixnqoJhrwsqhudqpraa (4 sources)Bilateral primary osteoarthritis of hip; Translations: [Unilateral primary osteoarthritis, left knee]Onset: 62-27-7990YabyaedHeslpydrnozz (2 sources)Age-related osteoporosis without current pathological fracture; Translations: [Osteoporosis]Onset: 574948-53-6637HwghoqqIwlti aftercare (5 sources)Polypharmacy ; Translations: [Other terminal worker (current) drug therapy] 23-76-3717KwetieizGtltk aftercare (1 source)Other fci (current) drug therapy; Translations: [OTH DETENTION 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 THERAPY]Onset: 02-98-6793PxazctznFiwcf and ill-defined heart disease (1 source)Gydidefgkjdm99-87-5358LbyxsksDxraw and ill-defined heart disease (1 source)Left atrial enlargementOnset: 813607-02-0895XhkayhfApkuh circulatory disease (1 source)Personal history of transient ischemic attack (TIA), and cerebral infarction without residual deficits; Translations: [PERS HX TIA AND CI NO RESID DEFICIT]Onset: 84-23-0031PvkrnqboZsqas circulatory disease (1 source)Difficult venous kuefib67-89-8249IvdoghoeJutyb circulatory disease (1 source)Vascular agwsdijrhjyqo64-34-3492OspkccajHicmk connective tissue disease (1 source)Presence of unspecified artificial knee joint; Translations: [PRESENCE UNS ARTIFICIAL KNEE JOINT]Onset: 13-22-4721FlvwnndJmzer connective tissue disease (1 source)Myalgia, unspecified site; Translations: [MYALGIA UNSPECIFIED SITE] Onset: 39-65-4616QzzvlmezGqqpz connective tissue disease (1 source)Neuralgia and neuritis, unspecified; Translations: [NEURALGIA AND NEURITIS UNSPECIFIED]Onset: 57-88-7228IfkgjyyaKpkux connective tissue disease (3 sources)History of cervical spine fusion; Translations: [Arthrodesis status] 71-70-4062MazaonxnLuqhw diseases of kidney and ureters (9 sources)Hyperparathyroidism due to renal insufficiency; Translations: [Secondary hyperparathyroidism of renal origin]ChronicOther diseases of kidney and ureters (7 sources)Secondary hyperparathyroidism of renal origin; Translations: [Secondary hyperparathyroidism (of renal origin)]Onset: 06-16-2021 Resolved: 75-48-7806JtjowqwBisjn diseases of kidney and ureters (4 sources)Secondary hyperparathyroidism; Translations: [Secondary hyperparathyroidism of renal origin]88-39-7429XhpzzibBsnve diseases of kidney and ureters (1 source)Disorder of kidney and ureter, unspecified; Translations: [DISORDER KIDNEY AND URETER UNS]Onset: 40-14-2315QmirnyurVtcwz diseases of veins and lymphatics (1 source)Qwcnponczb01-71-3054BovprhgKzdmw diseases of veins and lymphatics (3 sources)Lymphedema, not elsewhere classified; Translations: [Lymphedema, not elsewhere classified]Onset: 64-78-4606HilpuafYylvn diseases of veins and lymphatics (1 source)Venous insufficiency (chronic) (peripheral); Translations: [VENOUS INSUFF CHRONIC PERIPHERAL]Onset: 64-56-7570DicmhtqyAmaok diseases of veins and lymphatics (1 source)Peripheral venous xljauzrmkqorp67-81-3490LyiyaxvaRacjh ear and sense organ disorders (1 source)Bilateral hearing lossOnset: 767350-41-7951YcaprmvEsmgk endocrine disorders (18 sources)Hypoglycemia; Translations: [Hypoglycemia, unspecified]ChronicOther endocrine disorders (1 source)Frfvqiqnggepswkiepq70-22-4350VamohxbQbhox fractures (1 source)Other nondisplaced dens fracture, initial encounter for closed fracture; Translations: [Other nondisplaced dens fracture, initial encounter for closed fracture]Onset: 94-39-1697SkenblrcIvztd fractures (1 source)Other displaced dens fracture, sequela; Translations: [Other displaced dens fracture, sequela]Onset: 26-81-8346MtnovknzUbdly fractures (1 source)Other displaced fracture of second cervical vertebra, subsequent encounter for fracture with delayed healing; Translations: [Other displaced fracture of second cervical vertebra, subsequent encounterfor fracture with delayed healing]Onset: 67-90-7611GlwpdnlqYbqyo gastrointestinal disorders (1 source)Irritable bowel syndromeOnset: 569249-69-3627SbpqzcrFbywr gastrointestinal disorders (9 sources)Diarrhea; Translations: [Diarrhea, unspecified]EpisodicOther gastrointestinal disorders (1 source)Bariatric surgery status; Translations: [BARIATRIC SURGERY STATUS] Onset: 78-85-5400EgpufkouWmmjv gastrointestinal disorders (1 source)H/O: vdphyry27-78-4769XksbjmtpUrjnk hereditary and degenerative nervous system conditions (1 source)Essential tremorOnset: 325538-48-1734SrzhlojWbocc hereditary and degenerative nervous system conditions (1 source)Mild cognitive qemlnaes20-48-6017RlffynjQzbwp hereditary and degenerative nervous system conditions (1 source)Restless legsOnset: 879395-42-0297AzbvrhoMorbo lower respiratory disease (4 sources)Shortness of breath; Translations: [SHORTNESS OF BREATH]Onset: 74-86-9486HcuihfxoGetss nervous system disorders (1 source)Other chronic pain; Translations: [OTHER CHRONIC PAIN]Onset: 71-83-5044ZbqyttoMawjl nervous system disorders (4 sources)Chronic pain syndrome; Translations: [CHRONIC PAIN SYNDROME]Onset: 11-51-0205XebolbzJehrp nervous system disorders (1 source)PolyneuropathyOnset: 100071-40-7516HbxmefsFskuj nervous system disorders (1 source)Paresthesia of skin; Translations: [PARESTHESIA OF SKIN]Onset: 31-20-0407RgeqwkyvZyqsy non-traumatic joint disorders (2 sources)Other specific arthropathies, not elsewhere classified, left shoulder; Translations: [Other specific arthropathies, not elsewhere classified, left shoulder]Onset: 13-40-2218SztjcnmDkksz non-traumatic joint disorders (5 sources)Pain in left [...] Translations: [MORBID SEVERE OBES D/T EXCESS ROGER]Onset: 40-87-4579LlfglhaYaibd nutritional; endocrine; and metabolic disorders (1 source)Body mass index (BMI) 34.0-34.9, adult; Translations: [BODY MASS INDEX BMI 34.0-34.9 ADULT]Onset: 34-72-7016EqytjbhMkoci nutritional; endocrine; and metabolic disorders (1 source)Body mass index (BMI) 31.0-31.9, adult; Translations: [BODY MASS INDEX BMI 31.0-31.9 ADULT]Onset: 53-85-0633DtchqnrPvbfu nutritional; endocrine; and metabolic disorders (3 sources)Hyperphosphatemia; Translations: [Other disorders of phosphorus metabolism]ChronicOther nutritional; endocrine; and metabolic disorders (1 source)Other disorders of phosphorus metabolismChronicOther nutritional; endocrine; and metabolic disorders (1 source)Body mass index 30+ - feizbfy39-74-6576InnvysdVksru nutritional; endocrine; and metabolic disorders (1 source)Obese class WCJ90-83-8425YmwvlwcWrnpnmoxh (2 sources)Flaccid hemiplegia affecting right dominant side; Translations: [Flaccid hemiplegia of right dominant side]Onset: 169475-45-6748Hrmnwhm Phlebitis; thrombophlebitis and thromboembolism (4 sources)Personal history of other venous thrombosis and embolism; Translations: [H/O: Deep vein thrombosis]Onset: 953492-33-7668Txruabeb Pulmonary heart disease (8 sources)Pulmonary hypertension, unspecified; Translations: [Pulmonary hypertension]Onset: 64-87-7906MxstmkpKjbpunocv heart disease (1 source)Personal history of pulmonary embolism; Translations: [PERSONAL HISTORY PULMONARY EMBOLISM]Onset: 00-24-5177ZfatbvooLpdcrpac codes; unclassified (1 source)Acquired absence of both cervix and uterus; Translations: [ACQUIRED ABSENCE BOTH CERVIX AND UTERUS]Onset: 95-95-3015PfasntpiIowpvvgf codes; unclassified (1 source)Acquired absence of other specified parts of digestive tract; Translations: [ACQ ABSENCE OTH PART DIGESTV TRACT]Onset: 99-87-2954Lmbwszqz Residual codes; unclassified (1 source)Edema, unspecified; Translations: [EDEMA UNSPECIFIED]Onset: 10-24-2022 EpisodicResidual codes; unclassified (1 source)Pain, unspecified; Translations: [Pain, unspecified]Onset: 10-13-2023 EpisodicSpondylosis; intervertebral disc disorders; other back problems (20 sources)Cervical spondylosis; Translations: [Spondylosis without myelopathy or radiculopathy, cervical region]Onset: 18-55-6870OaohkubAtffcktfjwl; intervertebral disc disorders; other back problems (12 sources)Muscle spasm of back; Translations: [Cervical disc disorder with radiculopathy, unspecified cervical region]Onset: 29-53-6468QjjhuuvrVseubxuidop injury; contusion (3 sources)Contusion of right wrist, initial encounter; Translations: [Contusion of scalp, initial encounter]Onset: 37-30-8566LqptkkjqPwetgjj (1 source)Syncope and collapse; Translations: [Syncope and collapse]Onset: 56-39-3627UbsglqvaQwlqzkn disorders (3 sources)Hypothyroidism, unspecified; Translations: [Hypothyroidism]Onset: 424620-55-5358BcirtlzBrunqcevmvbt (4 sources)LOW BACK PAIN, UNSPECIFIED; Translations: [LOW BACK PAIN, UNSPECIFIED]Onset: 80-61-1699Yzrycptracxk (1 source)PERSONAL HISTORY OF COVID-19; Translations: [PERSONAL HISTORY OF COVID-19]Onset: 08-29-6221Dtthagefhwzg (1 source)CONTACT W/AND (SUSP) EXPOS COVID-19; Translations: [CONTACT W/AND (SUSP) EXPOS COVID-19]Onset: 25-31-4460Ttbymipylhzd (1 source)CHRN KIDNEY DISEASE STG 3 UNSP; Translations: [CHRN KIDNEY DISEASE STG 3 UNSP]Onset: 09-41-2252Hgcjagpzmfla (1 source)Abrasion of skin of -35-1937Tjgpyrootvkg (1 source)Severe tricuspid valve regurgitationOnset: 103329-14-4767Enjuhqz tract infections (1 source)Urinary tract infection, site not specified; Translations: [UTI SITE NOT SPECIFIED]Onset: 94-54-1143Oigmyppm Past or Other Problems Problem ClassificationProblemDateDocumented DateEpisodic/ChronicChronic kidney disease (6 sources)Chronic kidney disease; Translations: [Chronic kidney disease, stage 3a]Onset: 06-16-2021 Resolved: 06-16-2021 Codes: Fall (1 source)Fall (on) (from) unspecified stairs and steps, initial encounter; Translations: [FALL ON FROM UNS STAIRS STEPS INIT]Onset: 16-05-1260Gavczzji Fracture of upper limb (4 sources)Displaced fracture of triquetrum [cuneiform] bone, right wrist, initial encounter for closed fracture; Translations: [DSPL FX TRIQUETRUM BN RT WR INT ASHWIN]Onset: 87-59-2601ZgpwscgjDihynfkcfs disorders (1 source)Hormone replacement therapy; Translations: [HORMONE REPLACEMENT THERAPY]Onset: 46-87-9009VlsvhselXpezxjgvqygb breast conditions (1 source)Unspecified lump in the right breast, unspecified quadrant; Translations: [UNS LUMP IN RT BREAST UNS QUADRANT]Onset: 96-19-6174YtyzohznRbhyx connective tissue disease (1 source)Other muscle spasm; Translations: [OTHER MUSCLE SPASM]Onset: 46-98-3161QotehfbsXuawz connective tissue disease (1 source)FibromyalgiaOnset: 031075-24-2114ClyuogldYgteh fractures (1 source)Unspecified displaced fracture of second cervical vertebra, initial encounter for closed fracture; Translations: [Unspecified displaced fracture of second cervical vertebra, initial encounter for closed fracture]Onset: 22-44-1217PdueloojNkhua injuries and conditions due to external causes (3 sources)Unspecified injury of right wrist, hand and finger(s), initial encounter; Translations: [UNS INJ RTWRIST HAND FINGERS INIT]Onset: 08-06-2022 EpisodicOther injuries and conditions due to external causes (1 source)Other specified injuries of head, initial encounter; Translations: [OTH SPEC INJURIES HEAD INITIAL ENC]Onset: 43-80-4914ZhygooilSdeju lower respiratory disease (1 source)Shortness of breath; Translations: [Shortness of breath]Onset: 68-93-1251VmmgsqamEjohd nervous system disorders (1 source)Neurogenic claudicationOnset: 433165-16-3656BgsnhjfeRgiwc non- traumatic joint disorders (1 source)Pain in unspecified hip; Translations: [PAIN IN UNSPECIFIED HIP]Onset: 82-61-0556LybyrgtzErxgx non-traumatic joint disorders (2 sources)Pain in left shoulder; Translations: [Pain in left shoulder]Onset: 20-12-1442UnbqpkjoRxfwd screening for suspected conditions (not mental disorders or infectious disease) (8 sources)Other abnormal and inconclusive findings on diagnostic imaging of breast; Translations: [Encounter for screening mammogram for malignant neoplasm of breast]Onset: 83-60-6290XpayqqijAozkoilw codes; unclassified (1 source)Edema of lower extremityOnset: 524247-57-4071GzekxcthQmnkknqk codes; unclassified (1 source)InsomniaOnset: 613182-66-8288QnjoamuoGluwkqv and strains (2 sources)Strain of muscle(s) and tendon(s) of the rotator cuff of left shoulder, initial encounter; Translations: [Strain of muscle(s) and tendon(s) of the rotator cuff of left shoulder, initial encounter]Onset: 78-91-1594Iyoupprv Unclassified (1 source)LOW BACK PAIN, UNSPECIFIED; Translations: [LOW BACK PAIN, UNSPECIFIED] Onset: 10-27-2022 Results Test NameValueInterpretationReference RangeFacilityOffice Visiton 04-28-2025 Follow-up [id number] Mabel Moser 1960 F Date Provider Department Center 04/28/2025 BENJIE LERMA Family History Problem Relation Age of Onset Stroke Mother Heart failure Father Family Status - Relation Status Age at Mother Father Sister Brother Alive Level of Service:90626 MT OFFICE/OUTPATIENT ESTABLISHED MOD MDM 30 MIN (25) [facility] [id number] Mabel Moser 1960 F Date Provider Department Center 04/08/2025 CARLOS MENJIVAR MP [facility] Family History Problem Relation Age of Onset Stroke Mother Heart failure Father Family Status - Relation Status Age at Mother Father Sister Brother Alive Level of Service:97026 MT OFFICE/OUTPATIENT ESTABLISHED MOD MDM 30 MIN (57) Reason for Visit and Comments: Follow-up [059042]NormalMercy Health Clermont HospitalLaboratory - Chemistry and Chemistry - challengeOrdered By: Raeann Kirkpatrick on 01-02-2025 Bilirubin Ql (U)NegativeNEGATIVEWvumedicine Barnesville HospitalGlucose (U) [Mass/Vol]NegativeNEGATIVEWvumedicine Barnesville HospitalKetones Ql (U) NegativeNEGKettering Health Washington TownshippH (U)7.0 [pH]5.0-9.0Barnesville Hospitalpecific gravity (U) [Rel density]<=1.005Abnormal 1.005-1.025Wvumed[facility]ville HospitalUrobilinogen Qn (U)0.2 {Ligia'U}/dL0.2-1.0[facility] HospitalMagnesium [Mass/Vol]2.9 mg/dLHigh1.8-2.4FGlenbeigh HospitalUrate [Mass/Vol]5.8 mg/dL 2.6-6.0[facility] HospitalLaboratory - Specimen informationOrdered By: Raeann Kirkpatrick on 47-14-5060Ltsfcmeuuw (U)CLEARCLEARFGlenbeigh HospitalColor (U)LT. YELLOWYELLOWWvumedicine Barnesville Hospital Laboratory - UrinalysisOrdered By: Raeann Kirkpatrick on 85-29-7791Nngyjhssn esterase Test strip Ql (U)TRACEAbnormalNEGKettering Health Washington TownshipNitrite Ql (U)NegativeNEGKettering Health Washington TownshipProtein (U) [Mass/Vol] 11.2 mg/dL<=11.9W[facility]umed[facility]ville HospitalProtein Ql (U)NegativeNEG/TRACE [facility] HospitalMicroalbumin [Mass/volume] in UrineOrdered By: Raeann Kirkpatrick on 59-06-2869Tqodqie DL <= 20 mg/L (U) [Mass/Vol]mg/dL<=30.0 [facility]ville HospitalNo Panel InformationOrdered By: Raeann Kirkpatrick on 51-88-2300Hecrk Occult BloodTRACE-INEGATIVEWvumedicine Barnesville Hospital Urine Random Dhsjlrudaa02.82 mg/dL20.00-300.00[facility] 25-Hydroxy Vitamin D Total69.4 ng/mLWvumedicine Barnesville HospitalComment on above:<20 ng/mL Vit D mxzrqsijr37-<30 ng/mL Vit D cwmbzvrmkdey37-784 ng/mL Vit D sufficient>100 ng/mL Potential ToxicityParathyroid Hormone (Intact)87 pg/mL Jzcfiupm87-70QmhhtqtrrWvumedicine Barnesville HospitalComment on above:Performed at: [facility] [place] [id number] Director: Josué Crouch PhD, Phone: [phone] Level5.2 mg/dLHigh2.6-4.7FGlenbeigh HospitalUrine protein/creatinine ratioOrdered By: Raeann Kirkpatrick on 03-46-6677Agowqvm/Creatinine (U) [Ratio]0.32[facility] Office Visiton 34-50-6911Yfcblv-up [id number] Mabel Moser 1960 F Date Provider Department Center 10/11/2024 BENJIE LERMA Hos Family History Problem Relation Age of Onset Stroke Mother Heart failure Father Family Status - Relation Status Age at Mother Father Sister Brother Alive Level of Service:37208 MT OFFICE/OUTPATIENT ESTABLISHED LOW MDM 20 MINNormal [facility] HospitalFollow-Upon [id number] Mabel Moser 1960 F Date Provider Department Center 09/09/2024 MATTHEW MONTEIRO MP [facility] MP[facility]THO Family History Family history unknown: Yes Level of Service:03663 MT OFFICE/OUTPATIENT ESTABLISHED LOW MDM 20 MIN (GC) NormalUnTriHealth Bethesda North HospitalLaboratory - Chemistry and Chemistry - challengeon 58-40-3008Gnbmwmuuu Ql (U)NegativeNEGATIVEWvumedicine Barnesville HospitalGlucose (U) [Mass/Vol]NegativeNEGATIVEWvumedicine [facility]ville Hospital Ketones Ql (U)NegativeNEGATIVEWvumedicine Barnesville HospitalpH (U)5.5 [pH] 5.0-9.0Barnesville Hospitalpecific gravity (U) [Rel density]1.010 1.005-1.025Wvumedicine Barnesville HospitalUrobilinogen Qn (U)0.2 {Ligia'U}/dL0.2-1.0[facility] HospitalMagnesium [Mass/Vol]2.0 mg/dL1.8-2.4FGlenbeigh HospitalUrate [Mass/Vol]7.8 mg/dLHigh 2.6-6.0[facility] HospitalLaboratory - Specimen informationon 00-77-5750Obtgwkgclx (U)CLEARCLEARFGlenbeigh HospitalColor (U)LT. YELLOWYELLOWWvumedicine Barnesville HospitalLaboratory - Urinalysison 18-98-8063Szhelhdll esterase Test strip Ql (U)NegativeNEGATIVEWvumedicine Barnesville HospitalNitrite Ql (U)NegativeNEGATIVEWvumedicine [facility] Hospital Protein (U) [Mass/Vol]7.6 mg/dL<=11.9W[facility] HospitalProtein Ql (U)NegativeNEG/TRACEWvumedicine Barnesville HospitalMicroalbumin [Mass/volume] in Urineon 80-14-6041Qpqduzq DL <= 20 mg/L (U) [Mass/Vol]Microalbumin [Mass/volume] in Urine<=30.0Wvumedicine Barnesville HospitalNo Panel Informationon 23-88-3067Ahxuk Occult BloodNegativeNEGKettering Health Washington TownshipUrine Random Plmyibzanb40.27 mg/dLLow20.00-300.00[facility]25-Hydroxy Vitamin D Total49.9 ng/mLWvumedicine Barnesville HospitalComment on above:<20 ng/mL Vit D ldxjxfydi20-<30 ng/mL Vit D ggmkmewmdmpo88-987 ng/mL Vit D sufficient>100 ng/mL Potential Toxicity Parathyroid Hormone (Intact)266 pg/iMIhggkdtp37-71SicvccjymWvumedicine Barnesville HospitalComment on above:Performed at: [place] [address] [place], [place] [id number] Director: Josué Crouch PhD, Phone: [phone] Phosphorus Level5.3 mg/dLHigh2.6-4.7FGlenbeigh HospitalUrine protein/creatinine ratioon 23-34-0913Qctdfeb/Creatinine (U) [Ratio]Urine protein/creatinine ratioWvumedicine Barnesville HospitalAmbulatory Visit Summaryon 85-83-2153Zujtergdyr Visit SummaryAmbulatory Visit Summary MABEL MOSER :1960 [...] mg Tab) butorphanol (butorphanol 10 mg/mL Nasal [place]) cyanocobalamin (cyanocobalamin 1000 mcg/mL Inj) desvenlafaxine (desvenlafaxine [...] Unchanged butorphanol (butorphanol 10 mg/ mL Nasal [place]) 1 Sprays Nasal Inhalation Every day as [...] Benign essential hypertension Bilate (more content not included)...NormalSelect Specialty Hospital - Greensboroer Brook Lane Psychiatric CenterMagnesium on 15-14-6532Ogiaohaza [Mass/Vol]2.0 mg/dLNormal1.6-2.4[facility] CenterComment on above:Performed By: #### CDP, CMPX #### [employer] [address] [place] [address] Diagrammer: Michael Chen [facility] with Diffon 04-85-5817Ooz. Basophil0.00 k/uL Normal0.0-0.2MPalmdale Regional Medical CenterComment on above:Performed By: #### CDP, CMPX #### [facility] [address] [place] [address] Diagrammer: MDAbs. BridgetImm.Granulocyte0.09 k/uLNormal0.00-0.30[facility] For RehabilitationComment on above:Performed By: #### CDP, CMPX #### [facility] [address] [place] [address] Diagrammer: Laz Gill.Neutrophil (Seg)6.87 k/uLNormal1.8-7.7Children[facility] Hospital For RehabilitationComment on above:Performed By: #### CDP, CMPX #### [address] [address] Diagrammer: Michael Chen MDBasophils/100 WBC (Bld)0 %Normal0-2MPalmdale Regional Medical CenterComment on above:Performed By: #### CDP, CMPX #### [address] [address] Diagrammer: Michael Chen MDEosinophils (Bld) [#/Vol]0.26 10*3/uLNormal 0.0-0.4[facility] For RehabilitationComment on above:Performed By: #### CDP, CMPX #### [address] [address] Diagrammer: LIANA Gillosinophils/100 WBC (Bld)3 %Normal1-4[facility] For RehabilitationComment on above:Performed By: #### CDP, CMPX #### [facility] [address] [place] [address] Diagrammer: Rock Gillture granulocytes/100 WBC (Bld)1 %Uygi6BczwzChildren'S Hospital For RehabilitationComment on above:Performed By: #### CDP, CMPX #### [facility] [address] [place] [address] Diagrammer: Michael Chen MDLymphocytes (Bld) [#/Vol]0.95 10*3/uLLow1.0-4.8 [facility] For RehabilitationComment on above:Performed By: #### CDP, CMPX #### [address] [address] Diagrammer: Michael Chen MDLymphocytes/100 WBC (Bld)11 %Lvs91-81PkwmyChildren'S Hospital For RehabilitationComment on above:Performed By: #### CDP, CMPX #### [address] [address] Diagrammer: WALTER Gillonocytes (Bld) [#/Vol]0.43 10*3/uLNormal0.1-0.8 [facility] For RehabilitationComment on above:Performed By: #### CDP, CMPX #### [address] [address] Diagrammer: WALTER Gillonocytes/100 WBC (Bld)5 %Normal1-7Children[facility] For RehabilitationComment on above:Performed By: #### CDP, CMPX #### [facility] [address] [place] [address] Diagrammer: Michael Chen MDMorphology Pedro (Bld) [Interp]NormalNormalChildren'S Hospital For RehabilitationComment on above:Performed By: #### CDP, CMPX #### [facility] [address] [place] [address] Diagrammer: Michael Chen MDNeutrophil (Seg)80 %Tuyk88-83UfbrnChildren'S Hospital For RehabilitationComment on above:Performed By: #### CDP, CMPX #### [facility] [address] [place] [address] Diagrammer: Kwesi Gill Fluoresc.288 k/vDPszpmw031-704HcnseChildren'S Hospital For RehabilitationComment on above:Performed By: #### CDP, CMPX #### [address] [address] Diagrammer: CHIP GillLT, Immature Fract.1.5 %Normal1.1-10.3MPalmdale Regional Medical CenterComment on above:Performed By: #### CDP, CMPX #### [address] [address] Diagrammer: Michael Chne MDErythrocyte distribution width (RBC) [Ratio]13.6 %Flzbev24.8-14.4[facility] For RehabilitationComment on above:Performed By: #### CDP, CMPX #### [address] [address] Diagrammer: Michael Chen MDHematocrit (Bld) [Volume fraction]25.9 %Low 36.3-47.1MPalmdale Regional Medical CenterComment on above:Performed By: #### CDP, CMPX #### [address] [address] Diagrammer: Michael Chen MDHemoglobin (Bld) [Mass/Vol]7.8 g/dLLow11.9-15.1 [facility] For RehabilitationComment on above:Performed By: #### CDP, CMPX #### [address] [address] Diagrammer: WALTER GillCH (RBC) [Entitic mass]29.8 noBzqjdm50.2-33.5 [facility] For RehabilitationComment on above:Performed By: #### CDP, CMPX #### [address] [address] Diagrammer: WALTER GillCHC (RBC) [Mass/Vol]30.1 g/dADquche98.4-34.8 [facility] RehabilitationComment on above:Performed By: #### CDP, CMPX #### [address] [address] Diagrammer: WALTER GillCV (RBC) [Entitic vol]98.9 kJFhjpeq35.6-102.9 [facility] For RehabilitationComment on above:Performed By: #### CDP, CMPX #### [address] [address] Diagrammer: BRIANNA Gill Automated0.0 per 100 WBCNormal0.0Children[facility] Hospital For RehabilitationComment on above:Performed By: #### CDP, CMPX #### [address] [address] Diagrammer: Segun Gilltelet CountSee Reflexed IPF ResultNormal 138-453Children'[facility] Hospital For RehabilitationComment on above:Performed By: #### CDP, CMPX #### [address] [address] Diagrammer: KATHY Gill (Bld) [#/Vol]2.62 10*6/uLLow3.95-5.11[facility] For RehabilitationComment on above:Performed By: #### CDP, CMPX #### [address] [address] Diagrammer: SONYA Gill (Bld) [#/Vol]8.6 10*3/uLNormal3.5-11.3MPalmdale Regional Medical CenterComment on above:Performed By: #### CDP, CMPX #### [address] [address] Diagrammer: JUAN Gill HEAD NECK W CONTRASTon 33-07-2232TZI HEAD NECK W CONTRASTEXAMINATION: CTA OF THE [...] Signed by: Flavio Pierson MD 01/29/24 Final resultNormalChildren'S Hospital For RehabilitationComp Metabolic Pr/rfx MGon 44-52-9988Acoqgcy [Mass/Vol]3.0 g/dLLow3.5-5.2[facility]y [facility] Comment on above:Performed By: #### CDP, CMPX #### [facility] [address] [place] [address] Diagrammer: Michael Chen MDAlbumin/Glob Ratio1.9Anqglx4.0-2.5[facility] For RehabilitationComment on above:Performed By: #### CDP, CMPX #### [facility] [address] [place] [address] Diagrammer: Antione Gillkaline Xzvi198 U/QImjn16-986WsxwuChildren'S Hospital For RehabilitationComment on above:Performed By: #### CDP, CMPX #### [facility] [address] [place] [address] Diagrammer: Michael Chen MDALT [Catalytic activity/Vol]U/YSjc60-33PskjaChildren'S Hospital For RehabilitationComment on above:Performed By: #### CDP, CMPX #### [facility] [address] [place] [address] Diagrammer: Michael Chen MDAnion gap [Moles/Vol]11 mmol/LNormal9-16[facility] For RehabilitationComment on above:Performed By: #### CDP, CMPX #### [facility] [address] [place] [address] Diagrammer: Michael Chen MDAST [Catalytic activity/Vol]27 U/FVfvyvx17-38 [facility] For RehabilitationComment on above:Performed By: #### CDP, CMPX #### [facility] [address] [place] [address] Diagrammer: Michael Chen MDBilirubin [Mass/Vol]0.2 mg/dLNormal0.00-1.20 [facility] RehabilitationComment on above:Performed By: #### CDP, CMPX #### [address] [address] Diagrammer: RAH Gillalcium [Mass/Vol]8.0 mg/dLLow8.6-10.4[facility] For RehabilitationComment on above:Performed By: #### CDP, CMPX #### [facility] [address] [place] [address] Diagrammer: RAH Gillhloride [Moles/Vol]101 mmol/LRphqfo08-686XdtmcChildren'S Hospital For RehabilitationComment on above:Performed By: #### CDP, CMPX #### [facility] [address] [place] [address] Diagrammer: Michael Chen MDCO2 [Moles/Vol]19 mmol/QYal37-36PcllaChildren'S Hospital For RehabilitationComment on above:Performed By: #### CDP, CMPX #### [facility] [address] [place] [address] Diagrammer: RAH Gillreatinine [Mass/Vol]1.6 mg/dLHigh0.50-0.90[facility] For RehabilitationComment on above:Performed By: #### CDP, CMPX #### [facility] [address] [place] [address] Diagrammer: Michael Chen MDGFR/1.73 sq M.predicted among non-blacks MDRD (S/P/Bld) [Vol rate/Area]38 mL/min/{1.73_m2}Low>60MerCedars-Sinai Medical CenterComment on above:Result Comment: These results are not [...] By: #### CDP, CMPX #### [facility] [address] [place] [address] Diagrammer: Michael Chen MDGlucose [Mass/Vol]90 mg/nMGmzvrp81-98EulkvPalmdale Regional Medical CenterComment on above:Performed By: #### CDP, CMPX #### [facility] [address] [place] [address] Diagrammer: Michael Chen MDPotassium [Moles/Vol]4.4 mmol/LNormal3.7-5.3 [facility] RehabilitationComment on above:Performed By: #### CDP, CMPX #### [facility] [address] [place] [address] Diagrammer: Michael Chen MDProtein [Mass/Vol]5.4 g/dLLow6.6-8.7[facility] For RehabilitationComment on above:Performed By: #### CDP, CMPX #### [facility] [address] [place] [address] Diagrammer: Michael Chen MDSodium [Moles/Vol]131 mmol/LVwm682-110FcaemChildren'S Hospital For RehabilitationComment on above:Performed By: #### CDP, CMPX #### [facility] [address] [place] [address] Diagrammer: Michael Chen MDUrea nitrogen [Mass/Vol]46 mg/dLHigh8-23[facility] For RehabilitationComment on above:Performed By: #### CDP, CMPX #### [facility] [address] [place] [address] Diagrammer: Michael Chen MDMagnesiumon 21-09-3178Idkjszrsv [Mass/Vol]2.1 mg/dLNormal1.6-2.4[facility] For RehabilitationComment on above:Performed By: #### MG #### [facility] [address] [place] [address] Diagrammer: Ismael Gill Metab w/rfx MGon 97-47-8092Rpfsc gap [Moles/Vol]10 mmol/LNormal9-16[facility] For RehabilitationComment on above: Performed By: #### CDP, CMPX #### [address] [address] Diagrammer: Michael Chen MDCalcium [Mass/Vol]7.5 mg/dLLow8.6-10.4[facility] For RehabilitationComment on above:Performed By: #### CDP, CMPX #### [facility] [address] [place] [address] Diagrammer: Michael Chen MDChloride [Moles/Vol]101 mmol/JZnhrhj69-305FiuvlChildren'S Hospital For RehabilitationComment on above:Performed By: #### CDP, CMPX #### [facility] [address] [address] Diagrammer: Michael Chen MDCO2 [Moles/Vol]22 mmol/BCktocz48-20HgmroChildren'S Hospital For RehabilitationComment on above:Performed By: #### CDP, CMPX #### [facility] [address] [place] [address] Diagrammer: RAH Gillreatinine [Mass/Vol]1.8 mg/dLHigh0.50-0.90Children[facility] Hospital For RehabilitationComment on above:Performed By: #### CDP, CMPX #### [facility] [address] [place] [address] Diagrammer: Michael Madoff, MDGFR/1.73 sq M.predicted among non-blacks MDRD (S/P/Bld) [Vol rate/Area]33 mL/min/{1.73_m2}Low>60[facility] For RehabilitationComment on above:Result Comment: These results are not [...] tubular secretion.Performed By: #### CDP, CMPX #### [facility] [address] [place] [address] Diagrammer: Michael Chen MDGlucose [Mass/Vol]92 mg/dSJxskrr08-05JdkhrPalmdale Regional Medical CenterComment on above:Performed By: #### TERESA, CMPX #### [facility] [address] [place] [address] Diagrammer: CHIP Gillotassium [Moles/Vol]4.6 mmol/LNormal3.7-5.3 [facility] RehabilitationComment on above:Performed By: #### CDP, CMPX #### [facility] [address] [place] [address] Diagrammer: SHALINI Gillodium [Moles/Vol]133 mmol/SVsx038-085KvmebChildren'S Hospital For RehabilitationComment on above:Performed By: #### CDP, CMPX #### [facility] [address] [place] [address] Diagrammer: Michael Chen MDUrea nitrogen [Mass/Vol]46 mg/dLHigh8-23[facility] For RehabilitationComment on above:Performed By: #### CDP, CMPX #### [facility] [address] [place] [address] Diagrammer: RAH Gill with Diffon 83-14-4270Rdf. Basophil<0.03 Normal0.00-0.20[facility] For RehabilitationComment on above:Performed By: #### CDP, CMPX #### [facility] [address] [place] [address] Diagrammer: Laz Gill.Imm.Granulocyte0.13 k/uLNormal0.00-0.30[facility] For RehabilitationComment on above:Performed By: #### CDP, CMPX #### [facility] [address] [place] [address] Diagrammer: Laz Gill.Neutrophil (Seg)4.37 k/uLNormal1.50-8.10 [facility] For RehabilitationComment on above:Performed By: #### CDP, CMPX #### [facility] [address] [place] [address] Diagrammer: Michael Chen MDBasophils/100 WBC (Bld)0 %Normal0-2MPalmdale Regional Medical CenterComment on above:Performed By: #### CDP, CMPX #### [facility] [address] [place] [address] Diagrammer: Michael Chen MDEosinophils (Bld) [#/Vol]0.25 10*3/uLNormal 0.00-0.44[facility] For RehabilitationComment on above:Performed By: #### CDP, CMPX #### [facility] [address] [place] [address] Diagrammer: Michael Chen MDEosinophils/100 WBC (Bld)4 %Normal1-4[facility] For RehabilitationComment on above:Performed By: #### CDP, CMPX #### [facility] [address] [place] [address] Diagrammer: Michael Madoff, MDImmature granulocytes/100 WBC (Bld)2 %Ljer1NevapChildren'S Hospital For RehabilitationComment on above:Performed By: #### CDP, CMPX #### [address] [address] Diagrammer: Kimmy Gillmphocytes (Bld) [#/Vol]1.15 10*3/uLNormal 1.10-3.70[facility] For RehabilitationComment on above:Performed By: #### CDP, CMPX #### [address] [address] Diagrammer: Kimmy Gillmphocytes/100 WBC (Bld)18 %Tqu40-25HoglgChildren'S Hospital For RehabilitationComment on above:Performed By: #### CDP, CMPX #### [address] [address] Diagrammer: WALTER Gillonocytes (Bld) [#/Vol]0.59 10*3/uLNormal 0.10-1.20[facility] For RehabilitationComment on above:Performed By: #### CDP, CMPX #### [address] [address] Diagrammer: WATLER Gillonocytes/100 WBC (Bld)9 %Normal3-12Children[facility] For RehabilitationComment on above:Performed By: #### CDP, CMPX #### [address] [address] Diagrammer: Michael Chen MDNeutrophil (Seg)67 %Rhee14-83IyfcpChildren'S Hospital For RehabilitationComment on above:Performed By: #### CDP, CMPX #### [address] [address] Diagrammer: Michael Chen MDErythrocyte distribution width (RBC) [Ratio]13.6 %Nfhbcw59.8-14.4Children[facility] Hospital For RehabilitationComment on above:Performed By: #### CDP, CMPX #### [address] [address] Diagrammer: Michael Chen MDHematocrit (Bld) [Volume fraction]24.0 %Low 36.3-47.1MPalmdale Regional Medical CenterComment on above:Performed By: #### CDP, CMPX #### [place] [address] Diagrammer: Michael Chen MDHemoglobin (Bld) [Mass/Vol]7.1 g/dLLow11.9-15.1 [facility] For RehabilitationComment on above:Performed By: #### CDP, CMPX #### [place] [address] Diagrammer: WALTER GillCH (RBC) [Entitic mass]29.6 eaFmhfrp73.2-33.5 [facility] For RehabilitationComment on above:Performed By: #### TERESA, CMPX #### [place] [address] Diagrammer: WALTER GillCHC (RBC) [Mass/Vol]29.6 g/kWAqbotc33.4-34.8 [facility] For RehabilitationComment on above:Performed By: #### CDP, CMPX #### [place] [address] Diagrammer: WALTER GillCV (RBC) [Entitic vol]100.0 xQOekpfd48.6-102.9 [facility] For RehabilitationComment on above:Performed By: #### CDP, CMPX #### [address] [address] Diagrammer: Michael Chen MDNRBC Automated0.0 per 100 WBCNormal0.0Children[facility] For RehabilitationComment on above:Performed By: #### CDP, CMPX #### [address] [address] Diagrammer: Kwesi Gill mean volume (Bld) [Entitic vol]9.2 fL Normal8.1-13.5Children[facility] Hospital For RehabilitationComment on above:Performed By: #### CDP, CMPX #### [address] [address] Diagrammer: Segun Gilltelets (Bld) [#/Vol]222 10*3/iFZxzxgx473-587 [facility] For RehabilitationComment on above:Performed By: #### CDP, CMPX #### [address] [address] Diagrammer: Michael Chen MDRBC (Bld) [#/Vol]2.40 10*6/uLLow3.95-5.11[facility] For RehabilitationComment on above:Performed By: #### TERESA, CMPX #### [address] [address] Diagrammer: Michael Chen MDWBC (Bld) [#/Vol]6.5 10*3/uLNormal3.5-11.3MPalmdale Regional Medical CenterComment on above:Performed By: #### CDP, CMPX #### [address] [address] [address] Diagrammer: Michael Chen MDMagnesiumon 21-08-0863Hrzmhubsz [Mass/Vol]1.6 mg/dLNormal1.6-2.4[facility] Hospital For RehabilitationComment on above:Performed By: #### CDP, CMPX #### [address] [address] Diagrammer: Vonnie Gillsic Metab w/rfx MGon 14-19-5824Mjlip gap [Moles/Vol]11 mmol/LNormal9-16[facility] For RehabilitationComment on above: Performed By: #### CDP, CMPX #### [facility] [address] [place] [address] Diagrammer: RAH Gillalcium [Mass/Vol]7.4 mg/dLLow8.6-10.4[facility] For RehabilitationComment on above:Performed By: #### CDP, CMPX #### [facility] [address] [place] [address] Diagrammer: RAH Gillhloride [Moles/Vol]102 mmol/JWdaofy03-505FwfhjChildren'S Hospital For RehabilitationComment on above:Performed By: #### CDP, CMPX #### [facility] [address] [place] [address] Diagrammer: Michael Chen MDCO2 [Moles/Vol]21 mmol/BVtbwin59-78GlfanChildren'S Hospital For RehabilitationComment on above:Performed By: #### TERESA, CMPX #### [facility] [address] [place] [address] Diagrammer: RAH Gillreatinine [Mass/Vol]1.6 mg/dLHigh0.50-0.90[facility] For RehabilitationComment on above:Performed By: #### CDP, CMPX #### [facility] [address] [place] [address] Diagrammer: Michael Chen MDGFR/1.73 sq M.predicted among non-blacks MDRD (S/P/Bld) [Vol rate/Area]36 mL/min/{1.73_m2}Low>60MerCedars-Sinai Medical CenterComment on above:Result Comment: These results are not [...] tubular secretion.Performed By: #### TERESA, CMPX #### [place] [address] Diagrammer: Michael Chen MDGlucose [Mass/Vol]169 mg/gJPrai43-75ZazpbPalmdale Regional Medical CenterComment on above:Performed By: #### CDP, CMPX #### [place] [address] Diagrammer: Michael Chen MDPotassium [Moles/Vol]4.4 mmol/LNormal3.7-5.3 [facility] For RehabilitationComment on above:Performed By: #### TERESA, CMPX #### [place] [address] Diagrammer: SHALINI Gillodium [Moles/Vol]134 mmol/YCwk630-333WmobkChildren'S Hospital For RehabilitationComment on above:Performed By: #### TERESA, CMPX #### [place] [address] Diagrammer: Michael Chen MDUrea nitrogen [Mass/Vol]42 mg/dLWelch Community Hospital8-23[facility] Hospital For RehabilitationComment on above:Performed By: #### TERESA, CMPX #### [place] [address] Diagrammer: ROBERT Gill with Diffon [id number]. Basophil<0.03 Normal0.00-0.20[facility] Hospital For RehabilitationComment on above:Performed By: #### TERESA, CMPX #### [place] [address] Diagrammer: Laz Gill.Imm.Granulocyte0.06 k/uLNormal0.00-0.30[facility] For RehabilitationComment on above:Performed By: #### CDP, CMPX #### [place] [address] Diagrammer: Laz Gill.Neutrophil (Seg)5.93 k/uLNormal1.50-8.10 [facility] For RehabilitationComment on above:Performed By: #### CDP, CMPX #### [place] [address] Diagrammer: Michael Chen MDBasophils/100 WBC (Bld)0 %Normal0-2MPalmdale Regional Medical CenterComment on above:Performed By: #### CDP, CMPX #### [place] [address] Diagrammer: Michael Chen MDEosinophils (Bld) [#/Vol]0.17 10*3/uLNormal 0.00-0.44[facility] For RehabilitationComment on above:Performed By: #### CDP, CMPX #### [place] [address] Diagrammer: Michael Chen MDEosinophils/100 WBC (Bld)2 %Normal1-4[facility] For RehabilitationComment on above:Performed By: #### CDP, CMPX #### [place] [address] Diagrammer: Michael Chen MDErythrocyte distribution width (RBC) [Ratio]13.8 %Uqhano41.8-14.4[facility] For RehabilitationComment on above:Performed By: #### CDP, CMPX #### [place] [address] Diagrammer: Michael Chen MDHematocrit (Bld) [Volume fraction]26.3 %Low 36.3-47.1MPalmdale Regional Medical CenterComment on above:Performed By: #### CDP, CMPX #### [place] [address] Diagrammer: Michael Chen MDHemoglobin (Bld) [Mass/Vol]7.8 g/dLLow11.9-15.1 [facility] For RehabilitationComment on above:Performed By: #### CDP, CMPX #### [place] [address] Diagrammer: Michael Chen MDImmature granulocytes/100 WBC (Bld)1 %Yjma1MpysyChildren'S Hospital For RehabilitationComment on above:Performed By: #### TERESA, CMPX #### [place] [address] Diagrammer: Michael Chen MDLymphocytes (Bld) [#/Vol]0.79 10*3/uLLow 1.10-3.70[facility] For RehabilitationComment on above:Performed By: #### TERESA, CMPX #### [place] [address] Diagrammer: Kimmy Gillmphocytes/100 WBC (Bld)11 %Nan30-87OcuwzChildren'S Hospital For RehabilitationComment on above:Performed By: #### TERESA, CMPX #### [place] [address] Diagrammer: WALTER GillCH (RBC) [Entitic mass]29.8 xbRogymo30.2-33.5 [facility] For RehabilitationComment on above:Performed By: #### CDP, CMPX #### [address] [address] Diagrammer: WALTER GillCHC (RBC) [Mass/Vol]29.7 g/kFPscmmp30.4-34.8 [facility] For RehabilitationComment on above:Performed By: #### CDP, CMPX #### [address] [address] Diagrammer: WALTER GillCV (RBC) [Entitic vol]100.4 aGKpppkx43.6-102.9 [facility] For RehabilitationComment on above:Performed By: #### CDP, CMPX #### [place] [address] Diagrammer: WALTER Gillonocytes (Bld) [#/Vol]0.38 10*3/uLNormal 0.10-1.20[facility] For RehabilitationComment on above:Performed By: #### CDP, CMPX #### [place] [address] Diagrammer: WALTER Gillonocytes/100 WBC (Bld)5 %Normal3-12[facility] Hospital For RehabilitationComment on above:Performed By: #### CDP, CMPX #### [place] [address] Diagrammer: Antonino Gillophil (Seg)81 %Wwnn63-21YbmvfChildren'S Hospital For RehabilitationComment on above:Performed By: #### CDP, CMPX #### [place] [address] Diagrammer: BRIANNA Gill Automated0.0 per 100 WBCNormal0.0Children[facility] Hospital For RehabilitationComment on above:Performed By: #### CDP, CMPX #### [place] [address] Diagrammer: CHIP Gilllatelet mean volume (Bld) [Entitic vol]9.6 fL Normal8.1-13.5Children[facility] Hospital For RehabilitationComment on above:Performed By: #### CDP, CMPX #### [facility] [address] [place] [address] Diagrammer: Thea Gill ([facility]) [#/Vol]239 10*3/vVSxfklb709-575 [facility] For RehabilitationComment on above:Performed By: #### CDP, CMPX #### [facility] [address] [place] [address] Diagrammer: CRIS GillBC (d) [#/Vol]2.62 10*6/uLLow3.95-5.11[facility] Hospital For RehabilitationComment on above:Performed By: #### CDP, CMPX #### [facility] [address] [place] [address] Diagrammer: ARIELLE Gill ([facility]) [#/Vol]7.3 10*3/uLNormal3.5-11.3MPalmdale Regional Medical CenterComment on above:Performed By: #### CDP, CMPX #### [address] [address] Diagrammer: BERENICE Gill CERVICAL SPINE WO CONTRASTon [id number] CERVICAL SPINE WO CONTRASTEXAMINATION: CT OF THE [...] Signed by: Alex Hickman MD 01/27/24 Final resultNormalChildren'S Hospital For RehabilitationBasic Metab w/rfx MGon 40-37-7874Erasw gap [Moles/Vol]8 mmol/LLow9-16[facility] Comment on above:Performed By: #### BMPX, CDP #### [facility] [address] [place] [address] Diagrammer: RAH Gillalcium [Mass/Vol]7.8 mg/dLLow8.6-10.4[facility] For RehabilitationComment on above:Performed By: #### BMPX, CDP #### [employer] [address] [place] [address] Diagrammer: RAH Gillhloride [Moles/Vol]104 mmol/UPdauyt14-360IusmsChildren'S Hospital For RehabilitationComment on above:Performed By: #### BMPX, CDP #### [facility] [address] [place] [address] Diagrammer: Michael Chen MDCO2 [Moles/Vol]23 mmol/KByeloo33-67WejghChildren'S Hospital For RehabilitationComment on above:Performed By: #### BMPX, CDP #### [facility] [address] [place] [address] Diagrammer: RAH Gillreatinine [Mass/Vol]1.6 mg/dLHigh0.50-0.90[facility] Hospital For RehabilitationComment on above:Performed By: #### BMPX, CDP #### [facility] [address] [place] [address] Diagrammer: Michael Chen MDGFR/1.73 sq M.predicted among non-blacks MDRD (S/P/Bld) [Vol rate/Area]38 mL/min/{1.73_m2}Low>60[facility] For RehabilitationComment on above:Result Comment: These results are not [...] By: #### BMPX, CDP #### [facility] [address] [place] [address] Diagrammer: Michael Chen MDGlucose [Mass/Vol]109 mg/hIAcbl16-52PpqipPalmdale Regional Medical CenterComment on above:Performed By: #### BMPX, CDP #### [facility] [address] [place] [address] Diagrammer: Michael Chen MDPotassium [Moles/Vol]5.3 mmol/LNormal3.7-5.3 [facility] For RehabilitationComment on above:Performed By: #### BMPX, CDP #### [facility] [address] [place] [address] Diagrammer: Michael Chen MDSodium [Moles/Vol]135 mmol/FYlj498-666HcmtgChildren'S Hospital For RehabilitationComment on above:Performed By: #### BMPX, CDP #### [facility] [address] [place] [address] Diagrammer: Michael Chen MDUrea nitrogen [Mass/Vol]40 mg/dLHigh8-23[facility] Hospital For RehabilitationComment on above:Performed By: #### BMPX, CDP #### [address] [address] Diagrammer: Michael Chen MDAnion gap [Moles/Vol]11 mmol/LNormal9-16[facility] For RehabilitationComment on above:Performed By: #### BMPX, CDP #### [facility] [address] [place] [address] Diagrammer: Michael Chen MDCalcium [Mass/Vol]7.6 mg/dLLow8.6-10.4[facility] For RehabilitationComment on above:Performed By: #### BMPX, CDP #### [facility] [address] [place] [address] Diagrammer: Michael Chen MDChloride [Moles/Vol]102 mmol/YEqnxfk30-267RojpcChildren'S Hospital For RehabilitationComment on above:Performed By: #### BMPX, CDP #### [facility] [address] [place] [address] Diagrammer: Michael Chen MDCO2 [Moles/Vol]20 mmol/GGzjxle64-80QrxuzChildren'S Hospital For RehabilitationComment on above:Performed By: #### BMPX, CDP #### [facility] [address] [place] [address] Diagrammer: RAH Gillreatinine [Mass/Vol]1.7 mg/dLHigh0.50-0.90[facility] For RehabilitationComment on above:Performed By: #### BMPX, CDP #### [address] [address] Diagrammer: Michael Chen MDGFR/1.73 sq M.predicted among non-blacks MDRD (S/P/Bld) [Vol rate/Area]35 mL/min/{1.73_m2}Low>60[facility] For RehabilitationComment on above:Result Comment: These results are not [...] tubular secretion.Performed By: #### BMPX, CDP #### [facility] [address] [place] [address] Diagrammer: Michael Chen MDGlucose [Mass/Vol]106 mg/yFGxep75-42GbebzPalmdale Regional Medical CenterComment on above:Performed By: #### BMPX, CDP #### [facility] [address] [place] [address] Diagrammer: Michael Chen MDPotassium [Moles/Vol]5.0 mmol/LNormal3.7-5.3 [facility] For RehabilitationComment on above:Performed By: #### BMPX, CDP #### [facility] [address] [place] [address] Diagrammer: Michael Chen MDSodium [Moles/Vol]133 mmol/UQvs531-985WgxlsChildren'S Hospital For RehabilitationComment on above:Performed By: #### BMPX, CDP #### [facility] [address] [place] [address] Diagrammer: Michael Chen MDUrea nitrogen [Mass/Vol]46 mg/dLHigh8-23[facility] For RehabilitationComment on above:Performed By: #### BMPX, CDP #### [facility] [address] [place] [address] Diagrammer: Michael Chen [facility] with Diffon [id number]. Basophil<0.03 Normal0.00-0.20[facility] For RehabilitationComment on above:Performed By: #### VERONICAX, CDP #### [facility] [address] [place] [address] Diagrammer: Laz Gill.Imm.Granulocyte0.13 k/uLNormal0.00-0.30[facility] For RehabilitationComment on above:Performed By: #### BMPX, CDP #### [facility] [address] [place] [address] Diagrammer: Laz Gill.Neutrophil (Seg)8.21 k/uLHigh1.50-8.10[facility] For RehabilitationComment on above:Performed By: #### BMPX, CDP #### [facility] [address] Diagrammer: Michael Chen MDBasophils/100 WBC (Bld)0 %Normal0-2MercUSC Kenneth Norris Jr. Cancer HospitalComment on above:Performed By: #### BMPX, CDP #### [place] [address] Diagrammer: Michael Chen MDEosinophils (Bld) [#/Vol]0.19 10*3/uLNormal 0.00-0.44[facility] For RehabilitationComment on above:Performed By: #### BMPX, CDP #### [facility] [address] [place] [address] Diagrammer: Michael Chen MDEosinophils/100 WBC (Bld)2 %Normal1-4[facility] For RehabilitationComment on above:Performed By: #### BMPX, CDP #### [address] [address] Diagrammer: Michael Chen MDErythrocyte distribution width (RBC) [Ratio]13.9 %Ugdspj68.8-14.4[facility] For RehabilitationComment on above:Performed By: #### BMPX, CDP #### [address] [address] Diagrammer: Michael Chen MDHematocrit (Bld) [Volume fraction]28.3 %Low 36.3-47.1MPalmdale Regional Medical CenterComment on above:Performed By: #### BMPX, CDP #### [address] [address] Diagrammer: Michael Chen MDHemoglobin (Bld) [Mass/Vol]8.6 g/dLLow11.9-15.1 [facility] For RehabilitationComment on above:Performed By: #### BMPX, CDP #### [place] [address] Diagrammer: Michael Chen MDImmature granulocytes/100 WBC (Bld)1 %Hlnn7AgaobChildren'S Hospital For RehabilitationComment on above:Performed By: #### BMPX, CDP #### [address] [address] Diagrammer: Michael Chen MDLymphocytes (Bld) [#/Vol]1.09 10*3/uLLow 1.10-3.70[facility] For RehabilitationComment on above:Performed By: #### BMPX, CDP #### [address] [address] Diagrammer: Michael Chen MDLymphocytes/100 WBC (Bld)10 %Vrc98-00WrjsuChildren'S Hospital For RehabilitationComment on above:Performed By: #### BMPX, CDP #### [address] [address] Diagrammer: WALTER GillCH (RBC) [Entitic mass]29.5 jyGaukmu17.2-33.5 [facility] For RehabilitationComment on above:Performed By: #### BMPX, CDP #### [address] [address] Diagrammer: WALTER GillCHC (RBC) [Mass/Vol]30.4 g/uLYzlocg77.4-34.8 [facility] For RehabilitationComment on above:Performed By: #### BMPX, CDP #### [place] [address] Diagrammer: WALTER GillCV (RBC) [Entitic vol]96.9 mEPdmtqo47.6-102.9 [facility] For RehabilitationComment on above:Performed By: #### BMPX, CDP #### [place] [address] Diagrammer: Michael Chen MDMonocytes (Bld) [#/Vol]0.85 10*3/uLNormal 0.10-1.20[facility] For RehabilitationComment on above:Performed By: #### BMPX, CDP #### [address] [address] Diagrammer: WALTER Gillonocytes/100 WBC (Bld)8 %Normal3-12[facility] For RehabilitationComment on above:Performed By: #### BMPX, CDP #### [facility] [address] [place] [address] Diagrammer: Michael Gill (Seg)79 %Abpz94-16DgiewChildren'S Hospital For RehabilitationComment on above:Performed By: #### BMPX, CDP #### [facility] [address] [place] [address] Diagrammer: SANGEETA GillBC Automated0.0 per 100 WBCNormal0.0[facility] For RehabilitationComment on above:Performed By: #### BMPX, CDP #### [facility] [address] [place] [address] Diagrammer: Kwesi Gill mean volume (Bld) [Entitic vol]9.7 fL Normal8.1-13.5[facility] For RehabilitationComment on above:Performed By: #### BMPX, CDP #### [facility] [address] [place] [address] Diagrammer: Segun Gilltevenu (Bld) [#/Vol]270 10*3/cMFbqzhw504-565 [facility] For RehabilitationComment on above:Performed By: #### BMPX, CDP #### [facility] [address] [place] [address] Diagrammer: CRIS GillBC (Bld) [#/Vol]2.92 10*6/uLLow3.95-5.11[facility] For RehabilitationComment on above:Performed By: #### BMPX, CDP #### [facility] [address] [place] [address] Diagrammer: SONYA Gill (Bld) [#/Vol]10.5 10*3/uLNormal3.5-11.3MPalmdale Regional Medical CenterComment on above:Performed By: #### BMPX, CDP #### [address] [place] [address] Diagrammer: MDAbs. Bridget Basophil0.03 k/uLNormal0.00-0.20[facility] For RehabilitationComment on above:Performed By: #### BMPX, CDP #### [address] [address] Diagrammer: MDAbs. BridgetImm.Granulocyte0.08 k/uLNormal0.00-0.30[facility] For RehabilitationComment on above:Performed By: #### BMPX, CDP #### [address] [address] Diagrammer: Laz Gill.Neutrophil (Seg)12.75 k/uLHigh1.50-8.10[facility] For RehabilitationComment on above:Performed By: #### BMPX, CDP #### [address] [address] Diagrammer: Michael Chen MDBasophils/100 WBC (Bld)0 %Normal0-2MPalmdale Regional Medical CenterComment on above:Performed By: #### BMPX, CDP #### [address] [address] Diagrammer: Michael Chen MDEosinophils (Bld) [#/Vol]0.16 10*3/uLNormal 0.00-0.44[facility] For RehabilitationComment on above:Performed By: #### BMPX, CDP #### [address] [address] Diagrammer: LIANA Gillosinophils/100 WBC (Bld)1 %Normal1-4[facility] For RehabilitationComment on above:Performed By: #### BMPX, CDP #### [address] [address] Diagrammer: Michael Chen MDErythrocyte distribution width (RBC) [Ratio]13.7 %Znaorf39.8-14.4[facility] For RehabilitationComment on above:Performed By: #### BMPX, CDP #### [address] [address] Diagrammer: Michael Chen MDHematocrit (Bld) [Volume fraction]28.8 %Low 36.3-47.1MPalmdale Regional Medical CenterComment on above:Performed By: #### BMPX, CDP #### [address] [address] Diagrammer: Michael Chen MDHemoglobin (Bld) [Mass/Vol]8.8 g/dLLow11.9-15.1 [facility] For RehabilitationComment on above:Performed By: #### BMPX, CDP #### [address] [address] Diagrammer: Michael Chen MDImmature granulocytes/100 WBC (Bld)1 %Mdni9HtkgbChildren'S Hospital For RehabilitationComment on above:Performed By: #### BMPX, CDP #### [address] [address] Diagrammer: Michael Chen MDLymphocytes (Bld) [#/Vol]1.15 10*3/uLNormal 1.10-3.70[facility] For RehabilitationComment on above:Performed By: #### BMPX, CDP #### [address] [address] Diagrammer: Kimmy Gillmphocytes/100 WBC (Bld)8 %Arb77-98TsjpdChildren'S Hospital For RehabilitationComment on above:Performed By: #### BMPX, CDP #### [address] [address] Diagrammer: WALTER GillCH (RBC) [Entitic mass]29.6 xsFrmthb10.2-33.5 [facility] For RehabilitationComment on above:Performed By: #### BMPX, CDP #### [facility] [address] [place] [address] Diagrammer: WALTER GillCHC (RBC) [Mass/Vol]30.6 g/wKZwdemi61.4-34.8 [facility] RehabilitationComment on above:Performed By: #### BMPX, CDP #### [facility] [address] [place] [address] Diagrammer: WALTER GillCV (RBC) [Entitic vol]97.0 lNOfkizg76.6-102.9 [facility] For RehabilitationComment on above:Performed By: #### BMPX, CDP #### [facility] [address] [place] [address] Diagrammer: WALTER Gillonocytes (Bld) [#/Vol]0.77 10*3/uLNormal 0.10-1.20[facility] For RehabilitationComment on above:Performed By: #### BMPX, CDP #### [facility] [address] [place] [address] Diagrammer: WALTER Gillonocytes/100 WBC (Bld)5 %Normal3-12[facility] For RehabilitationComment on above:Performed By: #### BMPX, CDP #### [facility] [address] [place] [address] Diagrammer: Antonino Gillophil (Seg)85 %Aqbr37-05AkhkpChildren'S Hospital For RehabilitationComment on above:Performed By: #### BMPX, CDP #### [facility] [address] [place] [address] Diagrammer: BRIANNA Gill Automated0.0 per 100 WBCNormal0.0[facility] For RehabilitationComment on above:Performed By: #### BMPX, CDP #### [facility] [address] [place] [address] Diagrammer: Kwesi Gill mean volume (Bld) [Entitic vol]9.1 fL Normal8.1-13.5[facility] For RehabilitationComment on above:Performed By: #### BMPX, CDP #### [address] [address] Diagrammer: Thea Gill (Bld) [#/Vol]269 10*3/nRJlzdhu016-823 [facility] For RehabilitationComment on above:Performed By: #### BMPX, CDP #### [address] [address] Diagrammer: KATHY Gill (Bld) [#/Vol]2.97 10*6/uLLow3.95-5.11[facility] For RehabilitationComment on above:Performed By: #### BMPX, CDP #### [address] [address] Diagrammer: SONYA Gill (Bld) [#/Vol]14.9 10*3/uLHigh3.5-11.3MPalmdale Regional Medical CenterComment on above:Performed By: #### BMPX, CDP #### [address] [address] Diagrammer: Nikki Gill,Urineon [id number],UrineSpecimen Description .INDWELLING CATH URINE Special Requests FIRST INSERTION Culture NO GROWTH Report Status FINAL 01/26/2024NormalChildren'S Hospital For RehabilitationComment on above:Performed By: #### URC #### [facility] [address] [place] [address] Diagrammer: FELIPA Gill CERVICAL SPINE (2-3 VIEWS)on [id number] CERVICAL SPINE (2-3 VIEWS)ADDENDUM: Additional findings/impression point: [...] Marcelle Alonso DO 01/26/24 Edited Result - FINALNormalMerCedars-Sinai Medical CenterBasic Metab w/rfx MG on 59-44-7385Pjxzq gap [Moles/Vol]9 mmol/LNormal9-16[facility] For RehabilitationComment on above:Performed By: #### TERESA, BMPX #### [facility] [address] [place], [place] [address] Diagrammer: RAH Gillalcium [Mass/Vol]7.9 mg/dLLow8.6-10.4[facility] For RehabilitationComment on above:Performed By: #### TERESA, BMPX #### [employer] [address] [place] [address] Diagrammer: RAH Gillhloride [Moles/Vol]105 mmol/PAaycyi36-960GojfbChildren'S Hospital For RehabilitationComment on above:Performed By: #### CDP, BMPX #### [facility] [address] [place] [address] Diagrammer: RAH GillO2 [Moles/Vol]22 mmol/WPitsuz55-27OzeiaChildren'S Hospital For RehabilitationComment on above:Performed By: #### TERESA, BMPX #### [facility] [address] [place] [address] Diagrammer: RAH Gillreatinine [Mass/Vol]1.7 mg/dLHigh0.50-0.90[facility] For RehabilitationComment on above:Performed By: #### TERESA, BMPX #### [facility] [address] [place] [address] Diagrammer: Michael Chen MDGFR/1.73 sq M.predicted among non-blacks MDRD (S/P/Bld) [Vol rate/Area]33 mL/min/{1.73_m2}Low>60[facility] For RehabilitationComment on above:Result Comment: These results are not [...] By: #### TERESA, BMPX #### [facility] [address] [place] [address] Diagrammer: Michael Chen MDGlucose [Mass/Vol]104 mg/cKZydu98-87FtzlpPalmdale Regional Medical CenterComment on above:Performed By: #### TERESA, BMPX #### [facility] [address] [place] [address] Diagrammer: Michael Chen MDPotassium [Moles/Vol]5.1 mmol/LNormal3.7-5.3 [facility] For RehabilitationComment on above:Performed By: #### CDP, BMPX #### [address] [address] Diagrammer: SHALINI Gillodium [Moles/Vol]136 mmol/RDzuzia507-065QqhhaChildren'S Hospital For RehabilitationComment on above:Performed By: #### TERESA, BMPX #### [place] [address] Diagrammer: Michael Chen MDUrea nitrogen [Mass/Vol]51 mg/dLHigh8-23[facility] For RehabilitationComment on above:Performed By: #### TERESA, BMPX #### [facility] [address] [place] [address] Diagrammer: Michael Chen [facility] with Diffon [id number]. Basophil<0.03 Normal0.00-0.20[facility] For RehabilitationComment on above:Performed By: #### TERESA, BMPX #### [address] [address] Diagrammer: MDAbs. BridgetImm.Granulocyte0.03 k/uLNormal0.00-0.30[facility] For RehabilitationComment on above:Performed By: #### TERESA, BMPX #### [facility] [address] [place] [address] Diagrammer: Laz Gill.Neutrophil (Seg)3.64 k/uLNormal1.50-8.10 [facility] For RehabilitationComment on above:Performed By: #### TERESA, BMPX #### [facility] [address] [place] [address] Diagrammer: Michael Chen MDBasophils/100 WBC (Bld)0 %Normal0-2MercUSC Kenneth Norris Jr. Cancer HospitalComment on above:Performed By: #### TERESA, BMPX #### [address] [address] Diagrammer: Michael Chen MDEosinophils (Bld) [#/Vol]0.23 10*3/uLNormal 0.00-0.44[facility] Hospital For RehabilitationComment on above:Performed By: #### CDP, BMPX #### [address] [address] Diagrammer: LIANA Gillosinophils/100 WBC (Bld)4 %Normal1-4[facility] For RehabilitationComment on above:Performed By: #### TERESA, BMPX #### [address] [address] Diagrammer: Michael Chen MDErythrocyte distribution width (RBC) [Ratio]13.7 %Dxxail80.8-14.4[facility] For RehabilitationComment on above:Performed By: #### TERESA, BMPX #### [place] [address] Diagrammer: Michael Chen MDHematocrit (Bld) [Volume fraction]26.8 %Low 36.3-47.1MPalmdale Regional Medical CenterComment on above:Performed By: #### TERESA, BMPX #### [place] [address] Diagrammer: Michael Chen MDHemoglobin (Bld) [Mass/Vol]8.0 g/dLLow11.9-15.1 [facility] For RehabilitationComment on above:Performed By: #### CDP, BMPX #### [address] [address] Diagrammer: Michael Chen MDImmature granulocytes/100 WBC (Bld)1 %Yuyf8BsvjlChildren'S Hospital For RehabilitationComment on above:Performed By: #### TERESA, BMPX #### [address] [address] Diagrammer: Michael Chen MDLymphocytes (Bld) [#/Vol]1.38 10*3/uLNormal 1.10-3.70[facility] For RehabilitationComment on above:Performed By: #### CDP, BMPX #### [place] [address] Diagrammer: Kimmy Gillmphocytes/100 WBC (Bld)24 %Irmrzu48-01FnrfkChildren'S Hospital For RehabilitationComment on above:Performed By: #### TERESA, BMPX #### [place] [address] Diagrammer: WALTER GillCH (RBC) [Entitic mass]29.3 fdHvyvgt60.2-33.5 [facility] For RehabilitationComment on above:Performed By: #### TERESA, BMPX #### [place] [address] Diagrammer: WALTER GillCHC (RBC) [Mass/Vol]29.9 g/cHOoufig39.4-34.8 [facility] For RehabilitationComment on above:Performed By: #### CDP, BMPX #### [place] [address] Diagrammer: WALTER GillCV (RBC) [Entitic vol]98.2 lYMrbzwe40.6-102.9 [facility] For RehabilitationComment on above:Performed By: #### TERESA, BMPX #### [place] [address] Diagrammer: WALTER Gillonocytes (Bld) [#/Vol]0.58 10*3/uLNormal 0.10-1.20[facility] For RehabilitationComment on above:Performed By: #### TERESA, BMPX #### [facility] [address] [place] [address] Diagrammer: WALTER Gillonocytes/100 WBC (Bld)10 %Normal3-12[facility] Hospital For RehabilitationComment on above:Performed By: #### CDP, BMPX #### [facility] [address] [place] [address] Diagrammer: Natali Gillutrophil (Seg)61 %Scdopl34-19SzpbvChildren'S Hospital For RehabilitationComment on above:Performed By: #### CDP, BMPX #### [address] [address] Diagrammer: Michael Chen MDNRBC Automated0.0 per 100 WBCNormal0.0[facility] For RehabilitationComment on above:Performed By: #### CDP, BMPX #### [address] [address] Diagrammer: Segun Gilltekarthik mean volume (Bld) [Entitic vol]9.1 fL Normal8.1-13.5[facility] For RehabilitationComment on above:Performed By: #### CDP, BMPX #### [address] [address] Diagrammer: CHIP Gilllatelets (Bld) [#/Vol]227 10*3/ePLeahxg925-955 [facility] For RehabilitationComment on above:Performed By: #### CDP, BMPX #### [facility] [address] [place] [address] Diagrammer: Michael Chen MDRBC (Bld) [#/Vol]2.73 10*6/uLLow3.95-5.11[facility] For RehabilitationComment on above:Performed By: #### CDP, BMPX #### [facility] [address] [place] [address] Diagrammer: Michael Chen MDWBC (Bld) [#/Vol]5.9 10*3/uLNormal3.5-11.3MPalmdale Regional Medical CenterComment on above:Performed By: #### CDP, BMPX #### [address] [address] Diagrammer: Michael Chen MDFLUORO FOR SURGICAL PROCEDURESon 01-25-2024 FLUORO FOR SURGICAL PROCEDURESRadiology exam is complete. No Radiologist dictation. Please follow up with ordering provider. Final resultNormalChildren'S Hospital For RehabilitationHgb/Hcton 68-71-7694Iciokhtnpz (Bld) [Volume fraction]30.8 %Low36.3-47.1[facility]y [facility] Comment on above:Performed By: #### BMPX, CDP #### [address] [address] Diagrammer: Michael Chen MDHemoglobin (Bld) [Mass/Vol]9.5 g/dLLow11.9-15.1 [facility] For RehabilitationComment on above:Performed By: #### BMPX, CDP #### [facility] [address] [place] [address] Diagrammer: Michael Chen MDBasic Metab w/rfx MGon 89-09-7111Kasvc gap [Moles/Vol]10 mmol/LNormal9-16[facility] For RehabilitationComment on above: Performed By: #### BMPX, CDP #### [facility] [address] [place] [address] Diagrammer: RAH Gillalcium [Mass/Vol]8.2 mg/dLLow8.6-10.4[facility] For RehabilitationComment on above:Performed By: #### BMPX, CDP #### [facility] [address] [place] [address] Diagrammer: RAH Gillhloride [Moles/Vol]104 mmol/NRdhuzd45-891NnrzsChildren'S Hospital For RehabilitationComment on above:Performed By: #### BMPX, CDP #### [facility] [address] [place] [address] Diagrammer: Michael Chen MDCO2 [Moles/Vol]22 mmol/UEisfps58-20XrmprChildren'S Hospital For RehabilitationComment on above:Performed By: #### BMPX, CDP #### [facility] [address] [place] [address] Diagrammer: RAH Gillreatinine [Mass/Vol]1.7 mg/dLHigh0.50-0.90[facility] For RehabilitationComment on above:Performed By: #### BMPX, CDP #### [facility] [address] [place] [address] Diagrammer: Michael Chen MDGFR/1.73 sq M.predicted among non-blacks MDRD (S/P/Bld) [Vol rate/Area]34 mL/min/{1.73_m2}Low>60[facility] For RehabilitationComment on above:Result Comment: These results are not [...] By: #### BMPX, CDP #### [facility] [address] [place] [address] Diagrammer: Michael Chen MDGlucose [Mass/Vol]100 mg/fDLfyy45-53YhqybPalmdale Regional Medical CenterComment on above:Performed By: #### BMPX, CDP #### [facility] [address] [place] [address] Diagrammer: CHIP Gillotassium [Moles/Vol]4.9 mmol/LNormal3.7-5.3 [facility] For RehabilitationComment on above:Result Comment: SPECIMEN SLIGHTLY HEMOLYZED, RESULTS MAY BE ADVERSELY AFFECTED.Performed By: #### BMPX, CDP #### [address] [address] Diagrammer: SHALINI Gillodium [Moles/Vol]136 mmol/UAoxyry991-067PcdxmChildren'S Hospital For RehabilitationComment on above:Performed By: #### BMPX, CDP #### [address] [address] Diagrammer: Didier Gill nitrogen [Mass/Vol]51 mg/dLHigh8-23[facility] For RehabilitationComment on above:Performed By: #### BMPX, CDP #### [address] [address] Diagrammer: Michael Chen [facility] with Diffon 82-66-9655Oso. Basophil0.03 k/uL Normal0.00-0.20[facility] For RehabilitationComment on above:Performed By: #### BMPX, CDP #### [address] [address] Diagrammer: Laz Gill.Imm.Granulocyte0.11 k/uLNormal0.00-0.30[facility] For RehabilitationComment on above:Performed By: #### BMPX, CDP #### [address] [address] Diagrammer: Laz Gill.Neutrophil (Seg)3.73 k/uLNormal1.50-8.10 [facility] For RehabilitationComment on above:Performed By: #### BMPX, CDP #### [address] [address] Diagrammer: Michael Madoff, MDBasophils/100 WBC (Bld)1 %Normal0-2MPalmdale Regional Medical CenterComment on above:Performed By: #### BMPX, CDP #### [address] [address] Diagrammer: Michael Chen MDEosinophils (Bld) [#/Vol]0.24 10*3/uLNormal 0.00-0.44[facility] For RehabilitationComment on above:Performed By: #### BMPX, CDP #### [place] [address] Diagrammer: LIANA Gillosinophils/100 WBC (Bld)4 %Normal1-4[facility] For RehabilitationComment on above:Performed By: #### BMPX, CDP #### [place] [address] Diagrammer: Michael Chen MDErythrocyte distribution width (RBC) [Ratio]13.8 %Grrdzl70.8-14.4[facility] For RehabilitationComment on above:Performed By: #### BMPX, CDP #### [place] [address] Diagrammer: Michael Chen MDHematocrit (Bld) [Volume fraction]29.4 %Low 36.3-47.1MPalmdale Regional Medical CenterComment on above:Performed By: #### BMPX, CDP #### [place] [address] Diagrammer: Michael Chen MDHemoglobin (Bld) [Mass/Vol]9.2 g/dLLow11.9-15.1 [facility] RehabilitationComment on above:Performed By: #### BMPX, CDP #### [address] [address] Diagrammer: Michael Chen MDImmature granulocytes/100 WBC (Bld)2 %Enfg1NofchChildren'S Hospital For RehabilitationComment on above:Performed By: #### BMPX, CDP #### [facility] [address] [place] [address] Diagrammer: Michael Chen MDLymphocytes (Bld) [#/Vol]1.63 10*3/uLNormal 1.10-3.70[facility] For RehabilitationComment on above:Performed By: #### BMPX, CDP #### [facility] [address] [place] [address] Diagrammer: Kimmy Gillmphocytes/100 WBC (Bld)25 %Ybezcf70-10DadqiChildren'S Hospital For RehabilitationComment on above:Performed By: #### BMPX, CDP #### [address] [address] Diagrammer: WALTER GillCH (RBC) [Entitic mass]30.8 qoRguuqh19.2-33.5 [facility] For RehabilitationComment on above:Performed By: #### BMPX, CDP #### [address] [address] Diagrammer: WALTER GillCHC (RBC) [Mass/Vol]31.3 g/kOXrgsyq72.4-34.8 [facility] RehabilitationComment on above:Performed By: #### BMPX, CDP #### [address] [address] Diagrammer: WALTER GillCV (RBC) [Entitic vol]98.3 iBVynntk68.6-102.9 [facility] RehabilitationComment on above:Performed By: #### BMPX, CDP #### [facility] [address] [place] [address] Diagrammer: Michael Madoff, MDMonocytes (Bld) [#/Vol]0.74 10*3/uLNormal 0.10-1.20[facility] For RehabilitationComment on above:Performed By: #### BMPX, CDP #### [address] [address] Diagrammer: Michael Chen MDMonocytes/100 WBC (Bld)11 %Normal3-12[facility] For RehabilitationComment on above:Performed By: #### BMPX, CDP #### [address] [address] Diagrammer: Natali Gillutrophil (Seg)57 %Evwucz93-98HcgeuChildren'S Hospital For RehabilitationComment on above:Performed By: #### BMPX, CDP #### [address] [address] Diagrammer: Michael Chen MDNRBC Automated0.0 per 100 WBCNormal0.0[facility] For RehabilitationComment on above:Performed By: #### BMPX, CDP #### [address] [address] Diagrammer: Segun Gilltekarthik mean volume (Bld) [Entitic vol]9.9 fL Normal8.1-13.5[facility] For RehabilitationComment on above:Performed By: #### BMPX, CDP #### [address] [address] Diagrammer: Michael Chen MDPlatelets (Bld) [#/Vol]234 10*3/eNCiemhh351-667 [facility] For RehabilitationComment on above:Performed By: #### BMPX, CDP #### [address] [address] Diagrammer: Michael Chen MDRBC (Bld) [#/Vol]2.99 10*6/uLLow3.95-5.11[facility] For RehabilitationComment on above:Performed By: #### BMPX, CDP #### [facility] [address] [place] [address] Diagrammer: SONYA Gill ([facility]) [#/Vol]6.5 10*3/uLNormal3.5-11.3[facility]y [facility] Medical CenterComment on above:Performed By: #### BMPX, CDP #### [facility] [address] [place] [address] Diagrammer: Michael Chen MDANA Screen w/reflexon 95-45-1847SVU Screen NegativeNormalNEGChildren'S Hospital For RehabilitationComment on above:Performed By: #### BMPX, CDP #### [place] [address] Diagrammer: Barney Gilli-dsDNA<0.5Normal<10.0[facility] For RehabilitationComment on above:Result Comment: Reference Range: <10.0 Negative 10.0-15.0 Equivocal >15.0 PositivePerformed By: #### BMPX, CDP #### [facility] [address] [place] [address] Diagrammer: ARMINDA Gill Screen0.1 U/mLNormal<0.7[facility] For RehabilitationComment on above:Result Comment: Reference Range: <0.7 Negative 0.7-1.0 Equivocal >1.0 Positive [place] Screen includes U1RNP,RNP70,Sm,Ro(SS-A),La(SS-B),CENP,Scl-70,Elli-1Performed By: #### BMPX, CDP #### [facility] [address] [place] [address] Diagrammer: Michael Chen MDANA ScreenNegativeNormalNEGChildren'S Hospital For RehabilitationComment on above:Performed By: #### CDP, CMPX #### [facility] [address] [place], [place] [id number] Diagrammer: Donald Gill-dsDNA0.7 IU/mLNormal<10.0[facility] For RehabilitationComment on above:Result Comment: Reference Range: <10.0 Negative 10.0-15.0 Equivocal >15.0 PositivePerformed By: #### TERESA, CMPX #### [place] [address] Diagrammer: ARMINDA Gill Screen0.2 U/mLNormal<0.7[facility] For RehabilitationComment on above:Result Comment: Reference Range: <0.7 Negative 0.7-1.0 Equivocal >1.0 Positive [place] Screen includes U1RNP,RNP70,Sm,Ro(SS-A),La(SS-B),CENP,Scl-70,Elli-1Performed By: #### TERESA CMPX #### [place] [address] Diagrammer: Donald Gill CCPon 82-87-8398Wzam CCP0.6 U/mLNormal 0.0-7.0[facility] For RehabilitationComment on above:Result Comment: Reference Range: <7.0 Negative 7.0-10.0 Equivocal >10.0 PositivePerformed By: #### BMPX, CDP #### [place] [address] Diagrammer: Michael Chen MDBasic Metab w/rfx MGon 07-86-2902Oxvqe gap [Moles/Vol]8 mmol/LLow9-16[facility] For RehabilitationComment on above: Performed By: #### CECILIA, CDP #### [place] [id number] Diagrammer: Michael Chen MDCalcium [Mass/Vol]8.2 mg/dLLow8.6-10.4[facility] For RehabilitationComment on above:Performed By: #### BMPX, CDP #### [facility] [address] [place] [address] Diagrammer: RAH Gillhloride [Moles/Vol]106 mmol/UZqozzu36-354XqsqlChildren'S Hospital For RehabilitationComment on above:Performed By: #### BMPX, CDP #### [facility] [address] [place] [address] Diagrammer: Michael Chen MDCO2 [Moles/Vol]21 mmol/YUmpvmc24-66YohphChildren'S Hospital For RehabilitationComment on above:Performed By: #### BMPX, CDP #### [facility] [address] [place] [address] Diagrammer: RAH Gillreatinine [Mass/Vol]1.7 mg/dLHigh0.50-0.90[facility] For RehabilitationComment on above:Performed By: #### BMPX, CDP #### [facility] [address] [place] [address] Diagrammer: Michael Chen MDGFR/1.73 sq M.predicted among non-blacks MDRD (S/P/Bld) [Vol rate/Area]33 mL/min/{1.73_m2}Low>60[facility] For RehabilitationComment on above:Result Comment: These results are not [...] secretion.Performed By: #### BMPX, CDP #### [facility] [address] [place] [address] Diagrammer: Michael Chen MDGlucose [Mass/Vol]88 mg/mSRvavqp53-74IhczePalmdale Regional Medical CenterComment on above:Performed By: #### BMPX, CDP #### [address] [address] Diagrammer: Michael Chen MDPotassium [Moles/Vol]4.8 mmol/LNormal3.7-5.3 [facility] RehabilitationComment on above:Performed By: #### BMPX, CDP #### [place] [address] Diagrammer: Michael Chen MDSodium [Moles/Vol]135 mmol/RLfw469-696ReiyoChildren'S Hospital For RehabilitationComment on above:Performed By: #### BMPX, CDP #### [address] [address] Diagrammer: Michael Chen MDUrea nitrogen [Mass/Vol]56 mg/dLHigh8-23[facility] For RehabilitationComment on above:Performed By: #### BMPX, CDP #### [place] [address] Diagrammer: ROBERT Gill with Diffon 60-17-5018Wnu. Basophil<0.03 Normal0.00-0.20[facility] For RehabilitationComment on above:Performed By: #### VERONICAX, CDP #### [facility] [address] [place] [address] Diagrammer: Laz Gill.Imm.Granulocyte0.03 k/uLNormal0.00-0.30[facility] For RehabilitationComment on above:Performed By: #### BMPX, CDP #### [address] [address] Diagrammer: Laz Gill.Neutrophil (Seg)5.50 k/uLNormal1.50-8.10 [facility] For RehabilitationComment on above:Performed By: #### BMPX, CDP #### [address] [address] Diagrammer: Michael Chen MDBasophils/100 WBC (Bld)0 %Normal0-2MPalmdale Regional Medical CenterComment on above:Performed By: #### BMPX, CDP #### [address] [address] Diagrammer: Michael Chen MDEosinophils (Bld) [#/Vol]0.15 10*3/uLNormal 0.00-0.44[facility] For RehabilitationComment on above:Performed By: #### BMPX, CDP #### [address] [address] Diagrammer: Michael Chen MDEosinophils/100 WBC (Bld)2 %Normal1-4[facility] For RehabilitationComment on above:Performed By: #### BMPX, CDP #### [place] [address] Diagrammer: Michael Chen MDErythrocyte distribution width (RBC) [Ratio]13.7 %Rfvkkg93.8-14.4[facility] For RehabilitationComment on above:Performed By: #### BMPX, CDP #### [place] [address] Diagrammer: Michael Chen MDHematocrit (Bld) [Volume fraction]28.9 %Low 36.3-47.1MPalmdale Regional Medical CenterComment on above:Performed By: #### BMPX, CDP #### [place] [address] Diagrammer: Michael Chen MDHemoglobin (Bld) [Mass/Vol]8.6 g/dLLow11.9-15.1 [facility] RehabilitationComment on above:Performed By: #### BMPX, CDP #### [facility] [address] [place] [address] Diagrammer: Rock Gillture granulocytes/100 WBC (Bld)0 %Normal0 [facility] For RehabilitationComment on above:Performed By: #### BMPX, CDP #### [address] [address] Diagrammer: Michael Chen MDLymphocytes (Bld) [#/Vol]1.07 10*3/uLLow 1.10-3.70[facility] For RehabilitationComment on above:Performed By: #### BMPX, CDP #### [address] [address] Diagrammer: Kimmy Gillmphocytes/100 WBC (Bld)14 %Onw83-10VatmpChildren'S Hospital For RehabilitationComment on above:Performed By: #### BMPX, CDP #### [address] [address] Diagrammer: WALTER GillCH (RBC) [Entitic mass]30.2 nmLadwse12.2-33.5 [facility] For RehabilitationComment on above:Performed By: #### BMPX, CDP #### [address] [address] Diagrammer: WALTER GillCHC (RBC) [Mass/Vol]29.8 g/jQWuinqj05.4-34.8 [facility] For RehabilitationComment on above:Performed By: #### BMPX, CDP #### [address] [address] Diagrammer: WALTER GillCV (RBC) [Entitic vol]101.4 cYXhifku62.6-102.9 [facility] For RehabilitationComment on above:Performed By: #### BMPX, CDP #### [address] [place] [address] Diagrammer: WALTER Gillonocytes (Bld) [#/Vol]0.72 10*3/uLNormal 0.10-1.20[facility] For RehabilitationComment on above:Performed By: #### BMPX, CDP #### [address] [address] Diagrammer: WALTER Gillonocytes/100 WBC (Bld)10 %Normal3-12[facility] For RehabilitationComment on above:Performed By: #### BMPX, CDP #### [address] [address] Diagrammer: Natali Gillutrophil (Seg)74 %Knai41-12BojcfChildren'S Hospital For RehabilitationComment on above:Performed By: #### BMPX, CDP #### [address] [address] Diagrammer: Michael Chen MDNRBC Automated0.0 per 100 WBCNormal0.0[facility] For RehabilitationComment on above:Performed By: #### BMPX, CDP #### [address] [address] Diagrammer: Segun Gilltelet mean volume (Bld) [Entitic vol]9.9 fL Normal8.1-13.5[facility] For RehabilitationComment on above:Performed By: #### BMPX, CDP #### [address] [address] Diagrammer: Michael Chen MDPlatelets (Bld) [#/Vol]292 10*3/bPWpbqir333-353 [facility] For RehabilitationComment on above:Performed By: #### BMPX, CDP #### [address] [address] Diagrammer: CRIS GillBC (Bld) [#/Vol]2.85 10*6/uLLow3.95-5.11[facility] For RehabilitationComment on above:Performed By: #### BMPX, CDP #### [address] [address] Diagrammer: Michael Chen MDWBC (Bld) [#/Vol]7.5 10*3/uLNormal3.5-11.3MPalmdale Regional Medical CenterComment on above:Performed By: #### BMPX, CDP #### [address] [address] Diagrammer: Abelardo Gill 17-77-0260zFVZ Coag (d) [Time]29.1 s Wivdre75.0-36.5[facility] For RehabilitationComment on above:Result Comment: IV Heparin Therapy Range: 66.0-92.0 secPerformed By: #### TERESA, CMPX #### [place] [address] Diagrammer: Ismael Gill Metab w/rfx MGon 65-59-0812Tsbme gap [Moles/Vol]10 mmol/LNormal9-16[facility] For RehabilitationComment on above: Performed By: #### TERESA, CMPX #### [address] [address] Diagrammer: Michael Chen MDCalcium [Mass/Vol]8.3 mg/dLLow8.6-10.4[facility] For RehabilitationComment on above:Performed By: #### TERESA, CMPX #### [address] [address] Diagrammer: Michael Chen MDChloride [Moles/Vol]107 mmol/KGkoonq41-949ZvffpChildren'S Hospital For RehabilitationComment on above:Performed By: #### CDP, CMPX #### [facility] [address] [place] [address] Diagrammer: RAH GillO2 [Moles/Vol]21 mmol/BYhljqs08-79MziwlChildren'S Hospital For RehabilitationComment on above:Performed By: #### CDP, CMPX #### [facility] [address] [place] [address] Diagrammer: RAH Gillreatinine [Mass/Vol]1.8 mg/dLHigh0.50-0.90[facility] For RehabilitationComment on above:Performed By: #### TERESA, CMPX #### [facility] [address] [place] [address] Diagrammer: Michael Chen MDGFR/1.73 sq M.predicted among non-blacks MDRD (S/P/Bld) [Vol rate/Area]32 mL/min/{1.73_m2}Low>60[facility] For RehabilitationComment on above:Result Comment: These results are not [...] tubular secretion.Performed By: #### TERESA, CMPX #### [facility] [address] [place] [address] Diagrammer: Michael Chen MDGlucose [Mass/Vol]86 mg/fURxkyih25-13LgzywPalmdale Regional Medical CenterComment on above:Performed By: #### TERESA, CMPX #### [facility] [address] [place] [address] Diagrammer: Michael Chen MDPotassium [Moles/Vol]4.1 mmol/LNormal3.7-5.3 [facility] RehabilitationComment on above:Performed By: #### CDP, CMPX #### [facility] [address] [place] [address] Diagrammer: SHALINI Gillodium [Moles/Vol]138 mmol/JOphtyy670-090TwaxwChildren'S Hospital For RehabilitationComment on above:Performed By: #### CDP, CMPX #### [facility] [address] [place] [address] Diagrammer: Michael Chen MDUrea nitrogen [Mass/Vol]66 mg/dLHigh8-23[facility] For RehabilitationComment on above:Performed By: #### CDP, CMPX #### [facility] [address] [address] Diagrammer: RAH Gill-Reactive Proteinon 05-51-3035CVK [Mass/Vol] 31.7 mg/LHigh0.0-5.0MerCedars-Sinai Medical CenterComment on above:Performed By: #### BMPX, CDP #### [address] [address] Diagrammer: Michael Chen [facility] [place]on 12-58-4009C3607 mg/eARczxil34-795UpjzxChildren'S Hospital For RehabilitationComment on above:Performed By: #### BMPX, CDP #### [address] [address] Diagrammer: Michael Chen [facility] [place]4on 51-71-9171G742 mg/aRNpuezp23-36GkeacChildren'S Hospital For RehabilitationComment on above:Performed By: #### BMPX, CDP #### [address] [address] Diagrammer: RAH Gill with Diffon 43-75-6074Ymq. Basophil0.00 k/uL Normal0.00-0.20[facility] For RehabilitationComment on above:Performed By: #### CDP, CMPX #### [address] [address] Diagrammer: MDAbs. BridgetImm.Granulocyte0.00 k/uLNormal0.00-0.30[facility] For RehabilitationComment on above:Performed By: #### CDP, CMPX #### [address] [address] Diagrammer: MDAbs. BridgetNeutrophil (Seg)6.12 k/uLNormal1.50-8.10 [facility] For RehabilitationComment on above:Performed By: #### CDP, CMPX #### [address] [address] Diagrammer: Michael Chen MDBasophils/100 WBC (Bld)0 %Normal0-2MPalmdale Regional Medical CenterComment on above:Performed By: #### CDP, CMPX #### [address] [address] Diagrammer: Michael Chen MDEosinophils (Bld) [#/Vol]0.07 10*3/uLNormal 0.00-0.44[facility] For RehabilitationComment on above:Performed By: #### CDP, CMPX #### [address] [address] Diagrammer: Michael Chen MDEosinophils/100 WBC (Bld)1 %Normal1-4[facility]S Hospital For RehabilitationComment on above:Performed By: #### CDP, CMPX #### [address] [address] Diagrammer: Marty Gillmature granulocytes/100 WBC (Bld)0 %Normal0 [facility] For RehabilitationComment on above:Performed By: #### CDP, CMPX #### [facility] [address] [place] [address] Diagrammer: Michael Chen MDLymphocytes (Bld) [#/Vol]0.58 10*3/uLLow 1.10-3.70[facility] For RehabilitationComment on above:Performed By: #### CDP, CMPX #### [facility] [address] [place] [address] Diagrammer: Michael Chen MDLymphocytes/100 WBC (Bld)8 %Dys80-37KzmofChildren'S Hospital For RehabilitationComment on above:Performed By: #### CDP, CMPX #### [facility] [address] [place] [address] Diagrammer: WALTER Gillonocytes (Bld) [#/Vol]0.43 10*3/uLNormal 0.10-1.20[facility] For RehabilitationComment on above:Performed By: #### CDP, CMPX #### [facility] [address] [place] [address] Diagrammer: WALTER Gillonocytes/100 WBC (Bld)6 %Normal3-12[facility] For RehabilitationComment on above:Performed By: #### CDP, CMPX #### [facility] [address] [place] [address] Diagrammer: WALTER Gillorphology Pedro (Bld) [Interp]NormalNormalChildren'S Hospital For RehabilitationComment on above:Performed By: #### CDP, CMPX #### [facility] [address] [place] [address] Diagrammer: Michael Chen MDNeutrophil (Seg)85 %Khrx06-75YbznhChildren'S Hospital For RehabilitationComment on above:Performed By: #### CDP, CMPX #### [facility] [address] [place] [address] Diagrammer: Michael Chen MDErythrocyte distribution width (RBC) [Ratio]13.6 %Fjgqny87.8-14.4[facility] For RehabilitationComment on above:Performed By: #### CDP, CMPX #### [address] [address] Diagrammer: Michael Chen MDHematocrit (Bld) [Volume fraction]30.3 %Low 36.3-47.1MPalmdale Regional Medical CenterComment on above:Performed By: #### CDP, CMPX #### [place] [address] Diagrammer: Michael Chen MDHemoglobin (Bld) [Mass/Vol]9.3 g/dLLow11.9-15.1 [facility] For RehabilitationComment on above:Performed By: #### CDP, CMPX #### [place] [address] Diagrammer: WALTER GillCH (RBC) [Entitic mass]30.8 sdBdkbqf80.2-33.5 [facility] For RehabilitationComment on above:Performed By: #### CDP, CMPX #### [place] [address] Diagrammer: WALTER GillCHC (RBC) [Mass/Vol]30.7 g/cBGgakmh62.4-34.8 [facility] For RehabilitationComment on above:Performed By: #### CDP, CMPX #### [place] [address] Diagrammer: WALTER GillCV (RBC) [Entitic vol]100.3 iTMksokc07.6-102.9 [facility] For RehabilitationComment on above:Performed By: #### CDP, CMPX #### [address] [address] Diagrammer: BRIANNA Gill Automated0.0 per 100 WBCNormal0.0[facility] Hospital For RehabilitationComment on above:Performed By: #### TERESA, CMPX #### [address] [address] Diagrammer: Segun Gilltekarthik mean volume (Bld) [Entitic vol]9.6 fL Normal8.1-13.5[facility] Hospital For RehabilitationComment on above:Performed By: #### CDP, CMPX #### [address] [address] Diagrammer: Segun Gilltelets (Bld) [#/Vol]329 10*3/rOMbxlwm243-947 [facility] For RehabilitationComment on above:Performed By: #### TERESA, CMPX #### [address] [address] Diagrammer: CRIS GillBC (Bld) [#/Vol]3.02 10*6/uLLow3.95-5.11[facility] Hospital For RehabilitationComment on above:Performed By: #### TERESA, CMPX #### [address] [address] Diagrammer: SONYA Gill (Bld) [#/Vol]7.2 10*3/uLNormal3.5-11.3MPalmdale Regional Medical CenterComment on above:Performed By: #### TERESA, CMPX #### [address] [address] Diagrammer: Michael Chen MDCT CERVICAL SPINE WO CONTRASTon 78-42-3257DB CERVICAL SPINE WO CONTRASTEXAMINATION: CT OF THE [...] Signed by: Anuj Paniagua MD 01/22/24 Final resultNoalChildren'S Hospital For RehabilitationCT CHEST ABDOMEN PELVIS W CONTRASTon 34-36-6276DV CHEST ABDOMEN PELVIS W CONTRASTEXAMINATION: CT OF [...] Signed by: Anuj Paniagua MD 01/22/24 Final resultNormalChildren'S Hospital For RehabilitationCT HEAD WO CONTRASTon 85-78-5329QR HEAD WO CONTRASTEXAMINATION: CT OF THE HEAD [...] Signed by: Anuj Paniagua MD 01/22/24 Final resultNoUpper Valley Medical CenterCT LUMBAR SPINE BONY RECONSTRUCTIONon 34-90-6283NF LUMBAR SPINE BONY RECONSTRUCTIONEXAMINATION: CT OF THE [...] Signed by: Anuj Paniagua MD 01/22/24 Final resultNormMercy Health Clermont HospitalCT THORACIC SPINE BONY RECONSTRUCTIONon 84-70-4404NZ THORACIC SPINE BONY RECONSTRUCTIONEXAMINATION: CT OF THE [...] by: Anuj Paniagua MD 01/22/24 Final resultNormalMercy Doctor'S Hospital Montclair Medical CenterCTA HEAD NECK W CONTRASTon 30-14-6882RGI HEAD NECK W CONTRASTEXAMINATION: CT OF THE [...] Signed by: Anuj Paniagua MD 01/22/24 Final resultNormalChildren'S Hospital For RehabilitationCreatine Kinaseon 69-74-4332KY [Catalytic activity/Vol]38 U/XMqtvjz27-299MqigoChildren'S Hospital For Rehabilitation Comment on above:Performed By: #### BMPX, CDP #### [employer] [facility] [id number] Diagrammer: JOSESITO Gill BRAIN WO CONTRASTon 86-31-4562GII BRAIN WO CONTRASTEXAMINATION: MRI OF THE BRAIN [...] by: Shabbir Martin MD 01/22/24 Final resultNormalMercy Doctor'S Hospital Montclair Medical CenterMRI CERVICAL SPINE WO CONTRAST on 71-56-2501OPV CERVICAL SPINE WO CONTRASTEXAMINATION: MRI OF THE [...] Signed by: Kirby Adames MD 01/22/24 Final resultNormalMerCedars-Sinai Medical CenterPTon 89-24-1342VKB Coag (PPP) [Relative time]1.1 {INR}NormalChildren'S Hospital For RehabilitationComment on above: Result Comment: Therapeutic Range: Moderate Anticoagulant Intensity: INR = 2.0-3.0 High Anticoagulant Intensity: INR = 2.5-3.5Performed By: #### CDP, CMPX #### [facility] [address] [place] [address] Diagrammer: WILMAR Gill Coag (PPP) [Time]14.2 zIeyupn40.7-14.9Children[facility] Hospital For RehabilitationComment on above:Performed By: #### CDP, CMPX #### [employer] [address] [place] [address] Diagrammer: CRIS GillA Screenon 79-55-2456AV Screen<64Zobwbt2-79 [facility] Hospital For RehabilitationComment on above:Performed By: #### BMPX, CDP #### [facility] [address] [place], [place] [address] Diagrammer: SHALINI Gilledimentation Rateon 46-83-0145Oyakmbefofwrj Rate11 mm/HrNormal0-30[facility] Hospital For RehabilitationComment on above:Performed By: #### BMPX, CDP #### [employer] [address] [place] [address] Diagrammer: Michael Chen MDType + Screenon 78-35-2753Hhjr + ScreenSample Expiration 01/25/2024,2359 Arm Band Number [id number] ABO/Rh(D) A POSITIVE Antibody Screen NEGATIVENormalChildren'S Hospital For RehabilitationComment on above: Performed By: #### BMPX, CDP #### [facility] [address] [place] [address] Diagrammer: Michael Chen MDUric Acidon 30-71-4002Azevu [Mass/Vol]9.6 mg/dL High2.4-5.7Children[facility] Hospital For RehabilitationComment on above:Performed By: #### CECILIA, CDP #### [facility] [address] [place] [address] Diagrammer: Michael Chen MDVitamin D 25 OHon 25-18-8672Htqirqt D 25 OH30.3 ng/vPIewejq40.0-100.0[facility] Hospital For RehabilitationComment on above:Result Comment: Reference Range: Vitamin D status Range Deficiency <20 ng/mL Mild Deficiency 20-30 ng/mL Sufficiency 30-100 ng/mL Toxicity >100 ng/mLPerformed By: #### VERONICAX, CDP #### [facility] [address] [place] [address] Diagrammer: SHARONA GillR CHEST (SINGLE VIEW FRONTAL)on 05-90-6780EQ CHEST (SINGLE VIEW FRONTAL)EXAMINATION: ONE XRAY VIEW OF THE CHEST 01/22/2024 10:06 am COMPARISON: Chest radiograph 09/30/2023 HISTORY: ORDERING SYSTEM 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 PROVIDED HISTORY: Pre-op imaging FINDINGS: Lines/tubes: Right [...] Signed by: Migel Price MD 01/22/24 Final resultNormalChildren'S Hospital For RehabilitationBasic Metab w/rfx MGon 46-17-1983Vyyoh gap [Moles/Vol]8 mmol/LLow9-16[facility] Comment on above:Performed By: #### CDP, BMPX #### [facility] [address] [place] [address] Diagrammer: RAH Gillalcium [Mass/Vol]8.1 mg/dLLow8.6-10.4[facility] Hospital For RehabilitationComment on above:Performed By: #### CDP, BMPX #### [facility] [address] [place] [address] Diagrammer: Michael Chen MDChloride [Moles/Vol]101 mmol/WUvxgxp47-634QybidChildren'S Hospital For RehabilitationComment on above:Performed By: #### CDP, BMPX #### [facility] [address] [place] [address] Diagrammer: Michael Chen MDCO2 [Moles/Vol]23 mmol/MKxlgms96-37YbkujChildren'S Hospital For RehabilitationComment on above:Performed By: #### CDP, BMPX #### [employer] [address] [place] [address] Diagrammer: Michael Chen MDCreatinine [Mass/Vol]1.5 mg/dLHigh0.50-0.90[facility] For RehabilitationComment on above:Performed By: #### CDP, BMPX #### [employer] [address] [place] [address] Diagrammer: Michael Chen MDGFR/1.73 sq M.predicted among non-blacks MDRD (S/P/Bld) [Vol rate/Area]39 mL/min/{1.73_m2}Low>60[facility] Hospital For RehabilitationComment on above:Result Comment: These results are not [...] tubular secretion.Performed By: #### TERESA, BMPX #### [facility] [address] [place] [address] Diagrammer: Michael Chen MDGlucose [Mass/Vol]100 mg/oHCktp75-76MgdloPalmdale Regional Medical CenterComment on above:Performed By: #### TERESA BMPX #### [facility] [address] [place] [address] Diagrammer: CHIP Gillotassium [Moles/Vol]4.4 mmol/LNormal3.7-5.3 [facility] For RehabilitationComment on above:Performed By: #### CDP, BMPX #### [facility] [address] [place] [address] Diagrammer: Michael Chen MDSodium [Moles/Vol]132 mmol/UGbc246-327TingyChildren'S Hospital For RehabilitationComment on above:Performed By: #### CDP, BMPX #### [facility] [address] [place] [address] Diagrammer: Michael Chen MDUrea nitrogen [Mass/Vol]56 mg/dLWelch Community Hospital8-23Children[facility] Hospital For RehabilitationComment on above:Performed By: #### TERESA, BMPX #### [facility] [address] [place] [address] Diagrammer: ROBERT Gill with Diffon 56-86-2873Cbr. Basophil0.03 k/uL Normal0.00-0.20[facility] For RehabilitationComment on above:Performed By: #### CDP, BMPX #### [address] [address] Diagrammer: MDAbs. BridgetImm.Granulocyte0.05 k/uLNormal0.00-0.30[facility] Hospital For RehabilitationComment on above:Performed By: #### TERESA, BMPX #### [address] [address] Diagrammer: Laz Gill.Neutrophil (Seg)6.55 k/uLNormal1.50-8.10 [facility] For RehabilitationComment on above:Performed By: #### TERESA, BMPX #### [address] [address] Diagrammer: Michael Chen MDBasophils/100 WBC (Bld)0 %Normal0-2MPalmdale Regional Medical CenterComment on above:Performed By: #### TERESA, BMPX #### [place] [address] Diagrammer: Michael Chen MDEosinophils (Bld) [#/Vol]0.10 10*3/uLNormal 0.00-0.44[facility] For RehabilitationComment on above:Performed By: #### CDP, BMPX #### [facility] [address] [place] [address] Diagrammer: LIANA Gillosinophils/100 WBC (Bld)1 %Normal1-4[facility] Hospital For RehabilitationComment on above:Performed By: #### TERESA, BMPX #### [address] [address] Diagrammer: Michael Chen MDErythrocyte distribution width (RBC) [Ratio]13.6 %Dfwmny55.8-14.4[facility] For RehabilitationComment on above:Performed By: #### CDP, BMPX #### [address] [address] Diagrammer: Michael Chen MDHematocrit (Bld) [Volume fraction]27.9 %Low 36.3-47.1MPalmdale Regional Medical CenterComment on above:Performed By: #### TERESA, BMPX #### [place] [address] Diagrammer: Michael Chen MDHemoglobin (Bld) [Mass/Vol]8.4 g/dLLow11.9-15.1 [facility] For RehabilitationComment on above:Performed By: #### TERESA, BMPX #### [address] [address] Diagrammer: Michael Chen MDImmature granulocytes/100 WBC (Bld)1 %Avtp7DzcgwChildren'S Hospital For RehabilitationComment on above:Performed By: #### TERESA, BMPX #### [address] [address] Diagrammer: Michael Chen MDLymphocytes (Bld) [#/Vol]0.94 10*3/uLLow 1.10-3.70[facility] For RehabilitationComment on above:Performed By: #### TERESA, BMPX #### [facility] [address] [place] [address] Diagrammer: Kimmy Gillmphocytes/100 WBC (Bld)11 %Yhk36-07ZvqixChildren'S Hospital For RehabilitationComment on above:Performed By: #### TERESA, BMPX #### [facility] [address] [place] [address] Diagrammer: WALTER GillCH (RBC) [Entitic mass]30.5 inCxvckz43.2-33.5 [facility] For RehabilitationComment on above:Performed By: #### CDP, BMPX #### [facility] [address] [place] [address] Diagrammer: WALTER GillCHC (RBC) [Mass/Vol]30.1 g/xQNbpzmk00.4-34.8 [facility] For RehabilitationComment on above:Performed By: #### CDP, BMPX #### [address] [address] Diagrammer: WALTER GillCV (RBC) [Entitic vol]101.5 wXLbwmff89.6-102.9 [facility] For RehabilitationComment on above:Performed By: #### CDP, BMPX #### [address] [address] Diagrammer: WALTER Gillonocytes (Bld) [#/Vol]0.54 10*3/uLNormal 0.10-1.20[facility] For RehabilitationComment on above:Performed By: #### CDP, BMPX #### [facility] [address] [place] [address] Diagrammer: WALTER Gillonocytes/100 WBC (Bld)7 %Normal3-12[facility] For RehabilitationComment on above:Performed By: #### CDP, BMPX #### [address] [address] Diagrammer: Antonino Gillophil (Seg)80 %Zlbb75-47NmuioChildren'S Hospital For RehabilitationComment on above:Performed By: #### CDP, BMPX #### [facility] [address] [place] [address] Diagrammer: BRIANNA Gill Automated0.0 per 100 WBCNormal0.0[facility] For RehabilitationComment on above:Performed By: #### TERESA, BMPX #### [facility] [address] [place] [address] Diagrammer: Kwesi Gill mean volume (Bld) [Entitic vol]8.9 fL Normal8.1-13.5[facility] Hospital For RehabilitationComment on above:Performed By: #### TERESA, BMPX #### [address] [address] Diagrammer: Segun Gilltevenu (Bld) [#/Vol]281 10*3/jBUomzdr530-830 [facility] For RehabilitationComment on above:Performed By: #### TERESA, BMPX #### [address] [address] Diagrammer: CRIS GillBC (Bld) [#/Vol]2.75 10*6/uLLow3.95-5.11[facility] For RehabilitationComment on above:Performed By: #### TERESA, BMPX #### [facility] [address] [place] [address] Diagrammer: SONYA Gill (Bld) [#/Vol]8.2 10*3/uLNormal3.5-11.3MPalmdale Regional Medical CenterComment on above:Performed By: #### TERESA, BMPX #### [facility] [address] [place] [address] Diagrammer: Vonnie Gillsic Metab w/rfx MGon 75-54-4882Xyglg gap [Moles/Vol]12 mmol/LNormal9-16[facility] For RehabilitationComment on above: Performed By: #### TERESA, BMPX #### [facility] [address] [place] [address] Diagrammer: RAH Gillalcium [Mass/Vol]8.2 mg/dLLow8.6-10.4[facility] For RehabilitationComment on above:Performed By: #### CDP, BMPX #### [facility] [address] [place] [address] Diagrammer: Michael Cehn MDChloride [Moles/Vol]103 mmol/KAmtapa28-626TcsivCedars-Sinai Medical CenterComment on above:Performed By: #### CDP, BMPX #### [facility] [address] [place] [address] Diagrammer: Michael Chen MDCO2 [Moles/Vol]23 mmol/ZEazzzj77-60OvdhrChildren'S Hospital For RehabilitationComment on above:Performed By: #### TERESA, BMPX #### [facility] [address] [place] [address] Diagrammer: RAH Gillreatinine [Mass/Vol]1.6 mg/dLHigh0.50-0.90[facility] For RehabilitationComment on above:Performed By: #### TERESA, BMPX #### [facility] [address] [place] [address] Diagrammer: Michael Chen MDGFR/1.73 sq M.predicted among non-blacks MDRD (S/P/Bld) [Vol rate/Area]35 mL/min/{1.73_m2}Low>60MerCedars-Sinai Medical CenterComment on above:Result Comment: These results are not [...] secretion.Performed By: #### CDP, BMPX #### [facility] [address] [place] [address] Diagrammer: Michael Chen MDGlucose [Mass/Vol]89 mg/nZIdldyi18-70DtxrbPalmdale Regional Medical CenterComment on above:Performed By: #### CDP, BMPX #### [address] [address] Diagrammer: CHIP Gillotassium [Moles/Vol]4.6 mmol/LNormal3.7-5.3 [facility] For RehabilitationComment on above:Result Comment: SPECIMEN SLIGHTLY HEMOLYZED, RESULTS MAY BE ADVERSELY AFFECTED.Performed By: #### CDP, BMPX #### [facility] [address] [place] [address] Diagrammer: SHALINI Gillodium [Moles/Vol]138 mmol/WYrwrgu164-074ZpmaeChildren'S Hospital For RehabilitationComment on above:Performed By: #### TERESA, BMPX #### [facility] [address] [place] [address] Diagrammer: Michael Chen MDUrea nitrogen [Mass/Vol]57 mg/dLWelch Community Hospital8-23[facility] Hospital For RehabilitationComment on above:Performed By: #### CDP, BMPX #### [address] [address] Diagrammer: Michael Chen MDBrain Natri. Peptideon 28-78-3740Ssabietfcfp peptide B (Bld) [Mass/Vol]1428 pg/mLWelch Community Hospital0-300[facility] Comment on above:Result Comment: An age-independent cutoff point of 300 pg/ml has a 98% negative predictive value excluding acute heart failure.Performed By: #### CDP, BMPX #### [address] [address] Diagrammer: Michael Chen MDLiver Profileon 07-96-5674Vvwzfgc [Mass/Vol]3.5 g/dLNormal3.5-5.2MPalmdale Regional Medical CenterComment on above:Performed By: #### CDP, BMPX #### [address] [address] Diagrammer: Michael Chen MDAlbumin/Glob Ratio2.3Ojozzk6.0-2.5[facility] For RehabilitationComment on above:Performed By: #### CDP, BMPX #### [address] [address] Diagrammer: Antione Gillkaline Xfar715 U/PVbpg83-298RqqmvChildren'S Hospital For RehabilitationComment on above:Performed By: #### CDP, BMPX #### [address] [address] Diagrammer: Michael Chen MDALT [Catalytic activity/Vol]17 U/HHycfbq21-93 [facility] For RehabilitationComment on above:Performed By: #### CDP, BMPX #### [address] [address] Diagrammer: Michael Chen MDAST [Catalytic activity/Vol]33 U/QQmkkze27-22 [facility] For RehabilitationComment on above:Result Comment: SPECIMEN SLIGHTLY HEMOLYZED, RESULTS MAY BE ADVERSELY AFFECTED.Performed By: #### CDP, BMPX #### [address] [address] Diagrammer: Michael Chen MDBilirubin [Mass/Vol]0.2 mg/dLNormal0.00-1.20 [facility] For RehabilitationComment on above:Performed By: #### CDP, BMPX #### [address] [address] Diagrammer: Michael Chen MDBilirubin, Indirect0.1 mg/dLNormal0.0-1.0[facility] For RehabilitationComment on above:Performed By: #### CDP, BMPX #### [facility] [address] [place] [address] Diagrammer: Michael Chen MDBilirubin.indirect [Mass/Vol]mg/dLNormal 0.00-0.30[facility] For RehabilitationComment on above:Performed By: #### CDP, BMPX #### [facility] [address] [place] [address] Diagrammer: Michael Chen MDGlobulin (S) [Mass/Vol]2.1 g/dLNormalChildren'S Hospital For RehabilitationComment on above:Performed By: #### CDP, BMPX #### [facility] [address] [place] [address] Diagrammer: CHIP Gillrotein [Mass/Vol]5.6 g/dLLow6.6-8.7[facility] For RehabilitationComment on above:Performed By: #### CDP, BMPX #### [facility] [address] [place] [address] Diagrammer: Hill Gill Rejectionon 79-70-5250Qblree for rejectionUnable to perform testing: Specimen clotted.NormalChildren'S Hospital For RehabilitationComment on above:Performed By: #### CDP, BMPX #### [facility] [address] [place] [address] Diagrammer: Berkley Gill of sample.BLOODNormalChildren'S Hospital For RehabilitationComment on above:Performed By: #### CDP, BMPX #### [facility] [address] [place] [address] Diagrammer: Michael Chen MDTest orderedCDPNormalChildren'S Hospital For RehabilitationComment on above:Performed By: #### CDP, BMPX #### [facility] [address] [place] [address] Diagrammer: FELIPA Gill CERVICAL SPINE (2-3 VIEWS)on 75-71-6909NB CERVICAL SPINE (2-3 VIEWS)EXAMINATION: 4 XRAY VIEWS [...] Signed by: Carlos Peralta MD 09/30/23 Final resultNoUpper Valley Medical CenterXR CHEST PORTABLEon 09-30-2023 XR CHEST PORTABLEEXAMINATION: ONE [...] Signed by: Carlos Peralta MD 09/30/23 Final resultNoUpper Valley Medical CenterAbsolute reticulocyte count Ordered By: [place] on 95-17-6197Byfbdgvzzsfrq (Bld) [#/Vol]0.039 10*6/uL 0.024-0.084Wvumedicine Barnesville HospitalBasic Metabolic Panelon 07-03-2023 Creatinine Clr Calc Omwpqnju64.88NoKettering Health Behavioral Medical CenterComment on above:Performed By: #### [id number], MG, BMP, JOSE, FE and TIBC, RETIC #### [facility] [address] [id number] USAGFR/1.73 sq M.predicted MDRD (S/P/Bld) [Vol rate/Area] 23.348 mL/min/{1.73_m2}NormalWvumedicine Barnesville HospitalComment on above: Performed By: #### [id number], MG, BMP, JOSE, FE and TIBC, RETIC #### [place] [address] USACalcium [Mass/volume] in Serum or PlasmaOrdered By: Jim Randhawa on 99-70-1648Uxzuhob [Mass/Vol]8.3 mg/dLLow8.6-10.3FGlenbeigh HospitalComment on above:Performed By: #### [id number], MG, BMP, JOSE, FE and TIBC, RETIC #### [place] [address] USACarbon dioxide, total [Moles/volume] in Serum or Plasma Ordered By: Jim Randhawa on 36-15-7833EX9 [Moles/Vol]20.4 mmol/LLow21.0-31.0 [facility] Barnes[facility] HospitalComment on above:Performed By: #### [id number], MG, BMP, JOSE, FE and TIBC, RETIC #### [place] [address] USAChloride [Moles/volume] in Serum or PlasmaOrdered By: Jim Randhawa on 57-91-1410Timavnjc [Moles/Vol]106 mmol/EYuihmk83-033TfhuymzvqWvumedicine Barnesville HospitalComment on above:Performed By: #### [id number], MG, BMP, JOSE, FE and TIBC, RETIC #### [place] [address] USACreatinine [Mass/volume] in Serum or PlasmaOrdered By: Jim Randhawa on 94-94-6197Apwdlamfvb [Mass/Vol]2.32 mg/dLHigh0.60-1.20Wvumedicine Barnesville HospitalComment on above:Performed By: #### [id number], MG, BMP, JOSE, FE and TIBC, RETIC #### [facility] [address] [place] [address] [facility]ERE[facility] echo transthoracicon 54-42-4718OWQ echo transthoracic [facility] [address] [place] [address] Echocardiogram Signed Patient: Mabel Moser MR#: [id number] : 1960 Acct:[id number] Age/Sex: 63 / F ADM Date: 06/29/23 Loc: Room: [address] [place] [address] Type: DIS IN Attending Dr: Jim Randhawa DO Ordering Provider: Jim Randhawa DO Date of Service: 07/02/2301/16/859 ECH/ECH echo transthoracic: swelling Copies to: MD Jim Meyer DO Weight: 189 lb Performed By: Judah Pinto [facility] BSA: 1.9 m2 BP: 112/75 [...] FS: 40.8 % Ao root area: 7.8 mz4SHNf ap4: 8.4 cm TAPSE: 2.6 cm EDV(Teich): [...] 1155 Signed By: Benjie Leach MD 07/03/23 1445NormalWvumedicine Barnesville HospitalFerritin [Mass/volume] in Serum or PlasmaOrdered By: [place] on 08-53-7080Lnfdnauu [Mass/Vol]71.9 ng/lUQczdzo96.0-306.8W[facility]umedicine Barnesville HospitalComment on above:Performed By: #### [id number], MG, BMP, JOSE, FE and TIBC, RETIC #### [place] [address] USAFolate [Mass/volume] in Serum or PlasmaOrdered By: [place] on 51-80-5175Ptdznl [Mass/Vol]11.1 ng/mL>5.9Wvumedicine Barnesville HospitalComment on above:Folate reference range: >5.9 ng/mlThe WHO technical consultation on folate and vitamin z72olkywwsvnydf has determined that folate concentrations lessthan 4 ng/ml are considered deficient.Glucose [Mass/volume] in Serum or PlasmaOrdered By: Jim Randhawa on 83-86-9675Kcsvjzh [Mass/Vol]99 mg/iBLxwply47-119IzivtzeoyWvumedicine Barnesville HospitalComment on above:ADA recommended reference rangeRandom Glucose [...] Mellitus. ADA recommended reference rangePerformed By: #### [id number], MG, BMP, JOSE, FE and TIBC, RETIC #### [facility] [address] [place] [address] USAIron [Mass/volume] in Serum or PlasmaOrdered By: Los Grissom on 89-45-2443Nmfo [Mass/Vol]59 ug/iWTikpeo28-057QxvbzkllwWvumedicine Barnesville HospitalComment on above:Performed By: #### [id number], MG, BMP, JOSE, FE and TIBC, RETIC #### [facility] [address] [place] [address] USAIron and TIBC Profileon 07-03-2023% Iron Saqsuekpsa79.8 % Gncbkr79-15GrrrwdvhgWvumedicine Barnesville HospitalComment on above:Performed By: #### [id number], MG, BMP, JOSE, FE and TIBC, RETIC #### [facility] [address] [place] [address] USATotal Iron Binding Zmnbfjlj841 ug/xUVnmeaw905-696EhycufdosWvumedicine Barnesville HospitalComment on above:Performed By: #### [id number], MG, BMP, JOSE, FE and TIBC, RETIC #### [facility] [address] [place] [address] USAIron binding capacity [Mass/volume] in Serum or Plasma Ordered By: Los Grissom on 12-86-1325Nmch binding capacity [Mass/Vol]259 ug/dL 255-450Wvumedicine Barnesville HospitalIron saturation [Mass Fraction] in Serum or PlasmaOrdered By: Los Grissom on 30-72-2827Knxy saturation [Mass fraction] 22.8 %20-50Wvumedicine Barnesville HospitalMagnesium [Mass/volume] in Serum or PlasmaOrdered By: Jim Randhawa on 15-09-9850Bxvvbvzaw [Mass/Vol]2.0 mg/dLNormal 1.9-2.7FGlenbeigh HospitalComment on above:Performed By: #### [id number], MG, BMP, JOSE, FE and TIBC, RETIC #### [facility] [address] [place] [id number] USANo Panel InformationOrdered By: Jim Randhawa on 07-03-2023 Estimated GFR (CKD-EPI)23.348 mL/MinWvumedicine Barnesville HospitalPharmacy Creatinine Clearance (Chem25.88Wvumedicine Barnesville HospitalPotassium [Moles/volume] in Serum or PlasmaOrdered By: Jim Randhawa on 98-03-8687Sziabdtqa [Moles/Vol]3.9 mmol/LNormal3.5-5.1FGlenbeigh HospitalComment on above:Performed By: #### [id number], MG, BMP, JOSE, FE and TIBC, RETIC #### [facility] [address] [place] [id number] USAReticulocyte Counton 05-23-2556Mygljhhxnqqn Number0.039 10*6/uLNormal0.024-0.084Wvumedicine Barnesville HospitalComment on above:Result Comment: PERFORMED BY: [place] [address] PATHOLOGIST PAN GREASER TANNER GAVIN M.D.Performed By: #### [id number], MG, BMP, JOSE, FE and TIBC, RETIC #### [facility] [address] [place] [phone] USAReticulocyte Percent1.5 %Normal0.5-1.5FGlenbeigh HospitalComment on above:Performed By: #### [id number], MG, BMP, JOSE, FE and TIBC, RETIC #### [facility] [address] [place] [address] USAReticulocytes/100 RBC Auto (Bld)Ordered By: Los Grissom on 10-93-0245Hymefvwkcnmwh/100 RBC (Bld)1.5 %0.5-1.5FSt. Rita's Hospitalerum or plasma anion gap determinationOrdered By: Jim Randhawa on 15-91-9591Vmqco gap [Moles/Vol]11.5 mmol/LNormal6.0-15.0Wvumedicine Barnesville HospitalComment on above:Performed By: #### [id number], MG, BMP, JOSE, FE and TIBC, RETIC #### [facility] [address] [place] [address] USASodium [Moles/volume] in Serum or PlasmaOrdered By: Jim Randhawa on 12-59-4912Gsdmno [Moles/Vol]134 mmol/SBex180-987DhjalhluqWvumedicine Barnesville HospitalComment on above:Performed By: #### [id number], MG, BMP, JOSE, FE and TIBC, RETIC #### [facility] [address] [place], [place] [phone] USATransferrin [Mass/volume] in Serum or PlasmaOrdered By: Los Grissom on 46-85-3376Hzyqpvojiyv [Mass/Vol]185 mg/vOFev204-165UyqixueflWvumedicine Barnesville HospitalComment on above:Performed By: #### [id number], MG, BMP, JOSE, FE and TIBC, RETIC #### [facility] [address] [place], [place] [phone] USAUrea nitrogen [Mass/volume] in Serum or PlasmaOrdered By: Jim Randhawa on 90-09-2928Bncl nitrogen [Mass/Vol]95 mg/dLHigh7-25Wvumedicine Barnesville HospitalComment on above:Performed By: #### [id number], MG, BMP, JOSE, FE and TIBC, RETIC #### [facility] [address] [place], [place] [phone] USAVit. B12/Folate Profileon 05-64-2708Cdkbxs93.1 ng/mLNormal >5.9Wvumedicine Barnesville HospitalComment on above:Result Comment: Folate reference range: >5.9 ng/ml The WHO technical consultation on folate and vitamin b12 deficiencies has determined that folate concentrations less than 4 ng/ml are considered deficient. PERFORMED BY: [place] [address] PATHOLOGIST PAN GREASER TANNER GAVIN M.D.Performed By: #### [id number], MG, BMP, JOSE, FE and TIBC, RETIC #### [place] [address] USAVitamin B12 ser/plasOrdered By: Los Grissom on 07-03-2023 Cobalamin (Vitamin B12) [Mass/Vol]3564 pg/dGRjay789-428BkpabicngWvumedicine Barnesville HospitalComment on above:Performed By: #### [id number], MG, BMP, JOSE, FE and TIBC, RETIC #### [place] [address] USABasic Metabolic Panelon 74-19-4722Nlvhc gap [Moles/Vol] 11.0 mmol/LNormal6.0-15.0Wvumedicine Barnesville HospitalComment on above: Performed By: #### [id number], MG, BMP, JOSE, FE and TIBC, RETIC #### [place] [address] USACalcium [Mass/Vol]8.4 mg/dLLow8.6-10.3FGlenbeigh HospitalComment on above:Performed By: #### SKYI56HOG, MG, BMP, JOSE, FE and TIBC, RETIC #### [place] [address] USAChloride [Moles/Vol]104 mmol/TThyesn08-284YcbrzfoqoWvumedicine Barnesville HospitalComment on above:Performed By: #### UQRB02NLR, MG, BMP, JOSE, FE and TIBC, RETIC #### [place] [address] USACO2 [Moles/Vol]20.2 mmol/LLow21.0-31.0Wvumedicine Barnesville HospitalComment on above:Performed By: #### [id number], MG, BMP, JOSE, FE and TIBC, RETIC #### [address] [place] [address] USACreatinine [Mass/Vol]2.31 mg/dLHigh0.60-1.20Wvumedicine Barnesville HospitalComment on above:Performed By: #### HCLX70PFR, MG, BMP, JOSE, FE and TIBC, RETIC #### [facility] [address] [place] [address] USACreatinine Clr Calc Wmxpbltu57.22NormalWvumedicine Barnesville HospitalComment on above:Performed By: #### BJQQ69MTB, MG, BMP, JOSE, FE and TIBC, RETIC #### [facility] [address] [place] [address] USAGFR/1.73 sq M.predicted MDRD (S/P/Bld) [Vol rate/Area] 23.469 mL/min/{1.73_m2}NormalWvumedicine Barnesville HospitalComment on above: Performed By: #### KJNE65DSC, MG, BMP, JOSE, FE and TIBC, RETIC #### [place] [address] USAGlucose [Mass/Vol]89 mg/sAZboqxp54-347SeglqmqmxWvumedicine Barnesville HospitalComment on above:Result Comment: Random Glucose Reference Range is dependent on time and content of last meal. Glucose of more than 200 mg/dL in a nonstressed, ambulatory subject supports the diagnosis of Diabetes Mellitus. ADA recommended reference rangePerformed By: #### NUJA12NUS, MG, BMP, JOSE, FE and TIBC, RETIC #### [place] [address] USAPotassium [Moles/Vol]4.2 mmol/LNormal3.5-5.1FGlenbeigh HospitalComment on above:Performed By: #### SHQR34VDR, MG, BMP, JOSE, FE and TIBC, RETIC #### [place] [address] USASodium [Moles/Vol]131 mmol/BNon309-946SnoxdvwncWvumedicine Barnesville HospitalComment on above:Performed By: #### GNFB93JJD, MG, BMP, JOSE, FE and TIBC, RETIC #### [facility] [address] [place] [address] USAUrea nitrogen [Mass/Vol]100 mg/dLHigh7-25Wvumedicine Barnesville HospitalComment on above:Performed By: #### YHYH05BUG, MG, BMP, JOSE, FE and TIBC, RETIC #### [facility] [address] [place] [address] USAErythrocyte distribution width Auto (RBC) [Ratio]Ordered By: Jim Randhawa on 37-80-5469Oktuulkuztc distribution width (RBC) [Ratio]14.2 % 11.9-15.3FGlenbeigh HospitalHematocrit Auto (Bld) [Volume fraction]Ordered By: Jim Randhawa on 03-19-5686Jalpdejwup (Bld) [Volume fraction]25.0 %34.0-46.4FGlenbeigh HospitalHemoglobin [Mass/volume] in BloodOrdered By: Jim Randhawa on 91-08-0450Gpmloinatq (Bld) [Mass/Vol]8.4 g/dL11.8-15.4FGlenbeigh HospitalHemogram CBC Without Diffon 34-13-4597Pueenubnock distribution width (RBC) [Ratio]14.2 %Normal 11.9-15.3FGlenbeigh HospitalComment on above:Performed By: #### GLVE07WHE, MG, BMP, JOSE, FE and TIBC, RETIC #### [place] [address] USAHematocrit (Bld) [Volume fraction]25.0 %Low34.0-46.4 [facility] Barnesville HospitalComment on above:Performed By: #### [id number], MG, BMP, JOSE, FE and TIBC, RETIC #### [place] [address] USAHemoglobin (Bld) [Mass/Vol]8.4 g/dLLow11.8-15.4FGlenbeigh HospitalComment on above:Performed By: #### JIEL08IFK, MG, BMP, JOSE, FE and TIBC, RETIC #### [address]H (RBC) [Entitic mass]32.3 vcKdbahe09.7-34.3FGlenbeigh HospitalComment on above:Performed By: #### VIBH94GOR, MG, BMP, JOSE, FE and TIBC, RETIC #### [place] [address] USAMCV (RBC) [Entitic vol]96.6 tKEmpbcj98-009RbvxutpgsWvumedicine Barnesville HospitalComment on above:Performed By: #### LEQL12NZN, MG, BMP, JOSE, FE and TIBC, RETIC #### [place] [address] USAMean Corpuscular HGB Conc33.4 g/yKEbjrbr36.0-35.0Wvumedicine Barnesville HospitalComment on above:Performed By: #### SIFS75TLY, MG, BMP, JOSE, FE and TIBC, RETIC #### [place] [address] USAPlatelet mean volume (Bld) [Entitic vol]7.7 fLNormal 6.3-10.7FGlenbeigh HospitalComment on above:Result Comment: PERFORMED BY: [place] [address] PATHOLOGIST PAN GREASER TANNER GAVIN M.D.Performed By: #### [id number], MG, BMP, JOSE, FE and TIBC, RETIC #### [place] [address] USAPlatelets (Bld) [#/Vol]217 10*3/wHJfrzah898-070GbchwjnpfWvumedicine Barnesville HospitalComment on above:Performed By: #### [id number], MG, BMP, JOSE, FE and TIBC, RETIC #### [place] [address] USARBC (Bld) [#/Vol]2.59 10*6/uLLow3.60-5.00Wvumedicine Barnesville HospitalComment on above:Performed By: #### KEMW29ETP, MG, BMP, JOSE, FE and TIBC, RETIC #### [facility] [address] [place] [address] USAWBC (Bld) [#/Vol]6.1 10*3/uLNormal3.8-11.6FGlenbeigh HospitalComment on above:Performed By: #### [id number], MG, BMP, JOSE, FE and TIBC, RETIC #### [facility] [address] [place] [address] USALeukocytes [#/volume] corrected for nucleated erythrocytes in Blood by Automated counOrdered By: Jim Randhawa on 10-26-3301IAT corrected for nucl RBC Auto (Bld) [#/Vol]6.1 10*3/uL3.8-11.6FTrumbull Regional Medical CenterH Auto (RBC) [Entitic mass]Ordered By: Jim Randhawa on 09-54-6700BCF (RBC) [Entitic mass]32.3 pg24.7-34.3FTrumbull Regional Medical CenterHC Auto (RBC) [Mass/Vol]Ordered By: Jim Randhawa on 58-31-7783FSZB (RBC) [Mass/Vol]33.4 g/dL32.0-35.0Wvumedicine Barnesville HospitalMCV Auto (RBC) [Entitic vol] Ordered By: Jim Randhawa on 95-14-5722PDP (RBC) [Entitic vol]96.6 mJ17-533 [facility] Barnesville HospitalMagnesiumon 42-18-0001Qfhwdopxb [Mass/Vol]2.1 mg/dLNormal1.9-2.7FGlenbeigh HospitalComment on above:Result Comment: PERFORMED BY: [place] [address] PATHOLOGIST PAN GREASER TANNER GAVIN M.D.Performed By: #### [id number], MG, BMP, JOSE, FE and TIBC, RETIC #### [facility] [address] [place] [address] USAPlatelet mean volume Auto (Bld) [Entitic vol]Ordered By: Jim Randhawa on 83-15-9034Xpbpoqcg mean volume (Bld) [Entitic vol]7.7 fL6.3-10.7 [facility] Barnesville HospitalPlatelets Auto (Bld) [#/Vol]Ordered By: Jim Randhawa on 47-04-2604Sctzdyuyp (Bld) [#/Vol]217 10*3/cT494-749BlcuabtnvWvumedicine Barnesville HospitalRBC Auto (Bld) [#/Vol]Ordered By: Jim Randhawa on 06-93-7188IZN (Bld) [#/Vol]2.59 10*6/uL3.60-5.00Wvumedicine Barnesville HospitalBasic Metabolic Panelon 02-53-6601Hesfr gap [Moles/Vol]11.9 mmol/LNormal6.0-15.0 [facility] HospitalComment on above:Order Comment: LINE DRAW Performed By: #### ORNX43DID, MG, BMP, JOSE, FE and TIBC, RETIC #### [facility] [address] [place] [address] USACalcium [Mass/Vol]8.9 mg/dLNormal8.6-10.3FGlenbeigh HospitalComment on above:Order Comment: LINE DRAWPerformed By: #### [id number], MG, BMP, JOSE, FE and TIBC, RETIC #### [facility] [address] [place] [address] USAChloride [Moles/Vol]108 mmol/IAxnz20-016KxcxjivspWvumedicine Barnesville HospitalComment on above:Order Comment: LINE DRAWPerformed By: #### INNS39TXF, MG, BMP, JOSE, FE and TIBC, RETIC #### [facility] [address] [place] [address] USACO2 [Moles/Vol]18.5 mmol/LLow21.0-31.0Wvumed[facility] Barnesville HospitalComment on above:Order Comment: LINE DRAWPerformed By: #### SHYT29OMQ, MG, BMP, JOSE, FE and TIBC, RETIC #### [facility] [address] [place] [id number] USACreatinine [Mass/Vol]2.63 mg/dLSignificant change up 0.60-1.20Wvumed[facility] Barnesville HospitalComment on above:Order Comment: LINE DRAWPerformed By: #### RLEF34FFO, MG, BMP, JOSE, FE and TIBC, RETIC #### [facility] [address] [place] [address] USACreatinine Clr Calc Vpqkhkgp10.09NormalWvumedicine Barnesville HospitalComment on above:Order Comment: LINE DRAWPerformed By: #### BWDX12ICD, MG, BMP, JOSE, FE and TIBC, RETIC #### [facility] [address] [place] [address] USAGFR/1.73 sq M.predicted MDRD (S/P/Bld) [Vol rate/Area] 20.085 mL/min/{1.73_m2}NormalWvumedicine Barnesville HospitalComment on above: Order Comment: LINE DRAWPerformed By: #### ETRM55WRI, MG, BMP, JOSE, FE and TIBC, RETIC #### [facility] [address] [place] [address] USAGlucose [Mass/Vol]128 mg/kLCvhl86-856ObhplxzduWvumedicine Barnesville HospitalComment on above:Order Comment: LINE DRAWResult Comment: Random Glucose Reference Range is dependent on time and content of last meal. Glucose of more than 200 mg/dL in a nonstressed, ambulatory subject supports the diagnosis of Diabetes Mellitus. ADA recommended reference rangePerformed By: #### [id number], MG, BMP, JOSE, FE and TIBC, RETIC #### [facility] [address] [place] [address] USAPotassium [Moles/Vol]4.4 mmol/LNormal3.5-5.1FGlenbeigh HospitalComment on above:Order Comment: LINE DRAWPerformed By: #### [id number], MG, BMP, JOSE, FE and TIBC, RETIC #### [facility] [address] [place] [id number] USASodium [Moles/Vol]134 mmol/OAlc823-348UyugjezwiWvumedicine Barnesville HospitalComment on above:Order Comment: LINE DRAWPerformed By: #### HNXG50VMT, MG, BMP, JOSE, FE and TIBC, RETIC #### [place] [address] USAUrea nitrogen [Mass/Vol]104 mg/dLHigh7-25Wvumed[facility] Barnesville HospitalComment on above:Order Comment: LINE DRAWPerformed By: #### OVAP58OGZ, MG, BMP, JOSE, FE and TIBC, RETIC #### [place] [address] USAMagnesiumon 14-95-0750Hesvipojf [Mass/Vol]2.3 mg/dLNormal 1.9-2.7FGlenbeigh HospitalComment on above:Order Comment: LINE DRAWResult Comment: PERFORMED BY: [place] [address] PATHOLOGIST PAN GREASER TANNER GAVIN M.D.Performed By: #### [id number], MG, BMP, JOSE, FE and TIBC, RETIC #### [place] [address] USABasic Metabolic Panelon 44-07-9350Iksyu gap [Moles/Vol] 14.6 mmol/LNormal6.0-15.0W[facility]ville HospitalComment on above: Performed By: #### [id number], MG, BMP, JOSE, FE and TIBC, RETIC #### [place] [address] USACalcium [Mass/Vol]8.6 mg/dLNormal8.6-10.3FGlenbeigh HospitalComment on above:Performed By: #### EHYB61VGA, MG, BMP, JOSE, FE and TIBC, RETIC #### [place] [address] USAChloride [Moles/Vol]109 mmol/GTyvb75-034JeleswqayWvumedicine Barnesville HospitalComment on above:Performed By: #### AOPV90YKR, MG, BMP, JOSE, FE and TIBC, RETIC #### [address] [place] [address] USACO2 [Moles/Vol]15.0 mmol/LLow21.0-31.0W[facility] Barnesville HospitalComment on above:Performed By: #### NOJE72MEN, MG, BMP, JOSE, FE and TIBC, RETIC #### [facility] [address] [place] [address] USACreatinine [Mass/Vol]3.16 mg/dLHigh0.60-1.20[facility] HospitalComment on above:Performed By: #### ZCRI59HPS, MG, BMP, JOSE, FE and TIBC, RETIC #### [facility] [address] [place] [address] USACreatinine Clr Calc Rirypaxv43.26NormKettering Health Main CampusComment on above:Performed By: #### XJCA52GQT, MG, BMP, JOSE, FE and TIBC, RETIC #### [place] [address] USAGFR/1.73 sq M.predicted MDRD (S/P/Bld) [Vol rate/Area] 16.114 mL/min/{1.73_m2}NormalWvumedicine Barnesville HospitalComment on above: Performed By: #### [id number], MG, BMP, JOSE, FE and TIBC, RETIC #### [place] [address] USAGlucose [Mass/Vol]79 mg/rMHlamcl45-751GalmcskaiWvumedicine Barnesville HospitalComment on above:Result Comment: Random Glucose Reference Range is dependent on time and content of last meal. Glucose of more than 200 mg/dL in a nonstressed, ambulatory subject supports the diagnosis of Diabetes Mellitus. ADA recommended reference rangePerformed By: #### LSLT58FOA, MG, BMP, JOSE, FE and TIBC, RETIC #### [place] [address] USAPotassium [Moles/Vol]4.6 mmol/LNormal3.5-5.1FGlenbeigh HospitalComment on above:Performed By: #### YLZN18DCE, MG, BMP, JOSE, FE and TIBC, RETIC #### [facility] [address] [place] [address] USASodium [Moles/Vol]134 mmol/HYep829-743ShohdzayyWvumedicine Barnesville HospitalComment on above:Performed By: #### XAPG86WMU, MG, BMP, JOSE, FE and TIBC, RETIC #### [place] [address] USAUrea nitrogen [Mass/Vol]117 mg/dLHigh7-25Wvumedicine Barnesville HospitalComment on above:Performed By: #### YEMG43XUW, MG, BMP, JOSE, FE and TIBC, RETIC #### [place] [address] USAMagnesiumon 63-07-6668Byshzxkbf [Mass/Vol]2.5 mg/dLNormal 1.9-2.7FGlenbeigh HospitalComment on above:Result Comment: PERFORMED BY: [place] [address] PATHOLOGIST PAN GREASER TANNER GAVIN M.D.Performed By: #### [id number], MG, BMP, JOSE, FE and TIBC, RETIC #### [place] [address] USACBC AUTO DIFFon 39-72-8765WPUD #0.0 103/ulNormal0.0-0.1The [facility] Medical CenterComment on above:Performed By: #### CBC ####[facility] X[address] [place], [place] [address]Dr.Yilan ChangBasophils/100 WBC (Bld)0.6 %Normal0.2-2.0The [facility] Medical CenterComment on above:Performed By: #### CBC ####[facility] Xdsbl[address] [place], [place] [address]Dr.Yilan ChangEO #0.1 103/ulNormal0.0-0.7The [facility] Medical CenterComment on above:Performed By: #### CBC ####[facility] [address] [place] [address]Dr.Airam ChangEosinophils/100 WBC (Bld)1.7 %Normal 0.9-7.0The [facility] Medical CenterComment on above:Performed By: #### CBC ####[facility] Zomjiqss[address] [place], [place] [address]Dr.Airam Tripathi Erythrocyte distribution width (RBC) [Ratio]15.2 %Critically high11.0-15.0The [facility] Medical CenterComment on above:Performed By: #### CBC ####[facility] Qphetcflqd[address] [place], [place] [address]Dr.Airam ChangHematocrit (Bld) [Volume fraction]31.6 %Critically low36.0-48.0The [facility] Medical CenterComment on above:Performed By: #### CBC ####[facility] H[address] [place], [place] [address]Dr.Airam ChangHemoglobin (Bld) [Mass/Vol]9.9 g/dL Critically low12.0-16.0The [facility] Medical CenterComment on above:Performed By: #### CBC ####[facility] Lwwmsycgns[address] [place], [place] [address]Dr. Airam ChangIG #0.02 10e3/ulNormal0.00-0.03The [facility] Medical CenterComment on above: Performed By: #### CBC ####[facility] Ixasowmqqw[address] [place], [place] [address]Dr.Airam ChangIG %0.4 %Normal0.0-0.5The [facility] Medical CenterComment on above:Performed By: #### CBC ####[facility] F[address]tybuosld[address] [place], [place] [address]Dr.Selenaneil ChangLYMPH #0.8 103/ulCritically low1.2-3.8The [facility] Medical CenterComment on above:Performed By: #### CBC ####[facility] Vclwghumnu[address] [place], [place] [address]Dr.Airam ChangLymphocytes/100 WBC (Bld)16.9 %Critically low20.5-60.0The [facility] Medical CenterComment on above:Performed By: #### CBC ####[facility] [address] [place] [address]Dr.Airam TripathiMANUAL DIFF REQ NONormalThe [facility] Medical CenterComment on above:Performed By: #### CBC ####[facility] [address] [place] [address]Dr. Airam TripathiH (RBC) [Entitic mass]28.4 gkVpyuws31.7-34.0The [facility] Comment on above:Performed By: #### CBC ####[facility] Lwxpcgjebs[address] [place], [place] [address]Dr.Airam TripathiHC (RBC) [Mass/Vol]31.3 g/dL Pdsjro44.9-35.2The [facility] Medical CenterComment on above:Performed By: #### CBC ####[facility] Gzgapvkpme[address] [place], [place] [address]Dr. Selenaneil TripathiV (RBC) [Entitic vol]90.8 aGXmfdtt09.0-99.0The [facility] Comment on above:Performed By: #### CBC ####[facility] Ixgumxxswp[address] [place], [place] [address]Dr.Airam TripathiMONO #0.4 103/ulNormal0.3-0.8 The [facility] CenterComment on above:Performed By: #### CBC ####[facility] Ypjimynjvw[address] [place], [place] [address]Dr.Airam Deuce Monocytes/100 WBC (Bld)8.9 %Normal1.7-12.0The [facility] CenterComment on above: Performed By: #### CBC ####[facility] Scinyxgozc[address] [place], [place] [address]Dr.Airam DeuceNEUT #3.4 103/ulNormal1.4-6.5The [facility] CenterComment on above:Performed By: #### CBC ####[facility] Ewofmoohcj[address] [place], [place] [address]Dr.Selenaneil TripathiNeutrophils/100 WBC (Bld)71.5 %Rxfama91.0-75.0The [facility] CenterComment on above:Performed By: #### CBC ####[facility] Silrlujdcw[address] [place], [place] [address]Dr.Airam TripathiPlatelet mean volume (Bld) [Entitic vol]9.4 fLCritically low 9.5-13.5The [facility] CenterComment on above:Performed By: #### CBC ####[facility] Pzwrhsaxwr[address] [place], [place] [address]Dr. Selenaneil TripathiSjceuOYK296 103/ljBioxim206-483Gzl [facility] CenterComment on above: Performed By: #### CBC ####[facility] Dkxdrfarhh[address] [place], [place] [address]Dr.Selenaneil TripathiRBC3.48 106/ulCritically low4.20-5.40The [facility] CenterComment on above:Performed By: #### CBC ####[facility] Glxmfqhnfd[address] [place], [place] [address]Dr.Selenaneil TripathiWBC4.7 103/ul Normal4.0-11.0The [facility] CenterComment on above:Performed By: #### CBC ####[facility] Ymjoewtxvn[address] [place], [place] [address]Dr. Airam TripathiPROF 14(COMP METB)on 93-74-3528Bimeyyg [Mass/Vol]3.4 g/dLNormal 3.4-5.0The [facility] CenterComment on above:Performed By: #### CMP ####[facility] Iomkueiwls[address] [place], [place] [address]Dr.Airam Tripathi Albumin/Globulin [Mass ratio]1.0 {ratio}NormalThe [facility] Medical CenterComment on above:Performed By: #### CMP ####[facility] [address]mkwwfhjyi[address] [place], [place] [address]Dr.Airam TripathiALP [Catalytic activity/Vol]123 U/L Critically tzfn01-968Wby [facility] CenterComment on above:Performed By: #### CMP ####[facility] X[address]xuwcjbb[address] [place], [place] [address]Dr. Airam TripathiALT [Catalytic activity/Vol]24 U/JRimnrs57-92Atr [facility] Comment on above:Performed By: #### CMP ####[facility] G[address] [place], [place] [address]Dr.Yilan ChangAnion gap [Moles/Vol]12.1 mmol/LNormalThe [facility] CenterComment on above:Performed By: #### CMP ####[facility] Demhpbevrj[address] [place], [place] [address]Dr. Yilan ChangAST [Catalytic activity/Vol]30 U/NWokate16-15Zjk [facility] Comment on above:Performed By: #### CMP ####[facility] Orie[address]ug[address] [place], [place] [address]Dr.Yilan ChangBilirubin [Mass/Vol]0.4 mg/dL Normal0.2-1.0The [facility] CenterComment on above:Performed By: #### CMP ####[facility] Bdshkvkfdw[address] [place], [place] [address]Dr. Yilan ChangCalcium [Mass/Vol]8.9 mg/dLNormal8.5-10.1The [facility] CenterComment on above:Performed By: #### CMP ####[facility] Gy[address]judyd[address] [place], [place] [address]Dr.Yilan ChangChloride [Moles/Vol]95 mmol/LCritically lij98-172Wkj [facility] CenterComment on above:Performed By: #### CMP ####[facility] Xvwsqtfp[address] [place], [place] [address]Dr. Yilan ChangCO2 [Moles/Vol]28.7 mmol/TIvnnkg01.0-32.0The [facility] Medical CenterComment on above:Performed By: #### CMP ####[facility] Oeylyrmnbe[address] [place], [place] [address]Dr.Yilan ChangCreatinine [Mass/Vol]1.25 mg/dL Critically high0.55-1.02The [facility] CenterComment on above:Performed By: #### CMP ####[facility] Objgxezioy043[address] [place], [place] [address]Dr.Yilan ChangEGFR-AF NSTTSOIB07 mL/min/1.19b8Cpllxifkle low>=60The [facility] CenterComment on above:Performed By: #### CMP ####[facility] Lhgzuvkjey9[address] [place], [place] [address]Dr.Yilan ChangEGFR-NON AF WADIIDOA81 mL/min/1.60o8Lldrudvjdf low>=60The [facility] CenterComment on above: Performed By: #### CMP ####[facility] Rtbnqhkmys97[address] [place], [place] [address]Dr.Yilan ChangGlobulin (S) [Mass/Vol]3.5 g/dLNormalThe [facility] CenterComment on above:Performed By: #### CMP ####[facility] Lvtydttnhz350[address] [place], [place] [address]Dr.Yilan ChangGlucose [Mass/Vol]89 mg/yMKvlwiv36-292New [facility] CenterComment on above:Performed By: #### CMP ####[facility] Cfadgfmxon1435[address] [place], [place] [address]Dr.Yilan ChangPotassium [Moles/Vol]4.8 mmol/LNormal3.5-5.1The [facility] CenterComment on above:Performed By: #### CMP ####[facility] Kswnotwwue[address] [place], [place] [address]Dr.Yilan ChangProtein [Mass/Vol]6.9 g/dLNormal6.4-8.2The [facility] CenterComment on above:Performed By: #### CMP ####[facility] Cwubuvrovy9[address] [place], [place] [address]Dr.Yilan ChangSodium [Moles/Vol]131 mmol/LCritically qqc153-112Xud [facility] CenterComment on above:Performed By: #### CMP ####[facility] Nsuhomdfxm[address] [place], [place] [address]Dr.Yilan ChangUrea nitrogen [Mass/Vol]37.0 mg/dLCritically high7.0-18.0The [facility] CenterComment on above:Performed By: #### CMP ####[facility] Xzlgjhcdyk628[address] [place], [place] [address]Dr.Selenaneil DeuceUrea nitrogen/Creatinine [Mass ratio] 29.6 mg/mgNormalThe [facility] CenterComment on above:Performed By: #### CMP ####[facility] Pfozbsstdz1107[address] [place], [place] [address]Dr. Airam TripathiOSMOLALITYon 44-82-1225Dqndafedzc [Osmolality]293 mosm/kgNormal 275-295The [facility] HospitalComment on above:Performed By: #### OSMO ####[facility] Zldxjlegkf617[address] [place], [place] [address]Dr. Airam TripathiBNPon 58-70-4826Tzmjhnbbpvm peptide B (Bld) [Mass/Vol]1142.0 pg/mL Critically high<=900.0The [facility] CenterComment on above:Performed By: #### BNP ####[facility] Wydtjzxefy9100[address] [place], [place] [address]Dr. Airam TripathiCBC AUTO DIFFon 22-64-8993BLNI #0.0 103/ulNormal0.0-0.1The [facility] CenterComment on above:Performed By: #### CBC ####[facility] Xtzmtsmalk6549[address] [place], [place] [address]Dr.Airam TripathiBasophils/100 WBC (Bld)0.3 %Normal0.2-2.0The [facility] CenterComment on above:Performed By: #### CBC ####[facility] Lysbiwjoir4530[address] [place], [place] [address]Dr.Airam ChangEO #0.3 103/ulNormal0.0-0.7The [facility] CenterComment on above:Performed By: #### CBC ####[facility] Zupjswuzyw197[address] [place], [place] [address]Dr.Airam ChangEosinophils/100 WBC (Bld)4.6 %Normal 0.9-7.0The [facility] CenterComment on above:Performed By: #### CBC ####[facility] Rxnfodqccj5425[address] [place], [place] [address]Dr.Airam Tripathi Erythrocyte distribution width (RBC) [Ratio]16.1 %Critically high11.0-15.0The [facility] CenterComment on above:Performed By: #### CBC ####[facility] Anogrglquf7090[address] [place], [place] [address]Dr.Airam DeuceHematocrit (Bld) [Volume fraction]28.0 %Critically low36.0-48.0The [facility] CenterComment on above:Performed By: #### CBC ####[facility] Vbhpqilfxc832[address] [place], [place] [address]Dr.Airam ChangHemoglobin (Bld) [Mass/Vol]8.9 g/dL Critically low12.0-16.0The [facility] CenterComment on above:Performed By: #### CBC ####[facility] Awwozrpcrs858[address] [place], [place] [address]Dr. Airam ChangIG #0.02 10e3/ulNormal0.00-0.03The [facility] CenterComment on above: Performed By: #### CBC ####[facility] Ffqdispkmw4298[address] [place], [place] [address]Dr.Airam ChangIG %0.3 %Normal0.0-0.5The [facility] CenterComment on above:Performed By: #### CBC ####[facility] Nasivytlnl9815[address] [place], [place] [address]Dr.Airam TripathiLYMPH #1.5 103/ulNormal1.2-3.8The [facility] CenterComment on above:Performed By: #### CBC ####[facility] Qhmuytjnva8558[address] [place], [place] [address]Dr. Airam TripathiLymphocytes/100 WBC (Bld)24.2 %Lkmvnx98.5-60.0The [facility] Comment on above:Performed By: #### CBC ####[facility] Eyxoqdjklv4829[address] [place], [place] [address]Dr.Airam TripathiMANUAL DIFF REQNONormalThe [facility] CenterComment on above:Performed By: #### CBC ####[facility] Oqaxanhxfx4325[address] [place], [place] [address]Dr.Airam TripathiMCH (RBC) [Entitic mass]29.3 dtPydqkz44.7-34.0The [facility] CenterComment on above: Performed By: #### CBC ####[facility] [address]shod[address] [place] [address]Dr.Airam TripathiHC (RBC) [Mass/Vol]31.8 g/dLNormal 29.9-35.2The [facility] HospitalComment on above:Performed By: #### CBC ####[facility] Zgffqqccjb47[address] [place] [address]Dr. Airam TripathiV (RBC) [Entitic vol]92.1 yETkpcbh92.0-99.0The [facility] Comment on above:Performed By: #### CBC ####[facility] Xppgkisssz827[address] [place], [place] [address]Dr.Airam TripathiMONO #0.6 103/ulNormal0.3-0.8 The [facility] CenterComment on above:Performed By: #### CBC ####[facility] Vafxoyfaii2637[address] [place], [place] [address]Dr.Airam Tripathi Monocytes/100 WBC (Bld)10.0 %Normal1.7-12.0The [facility] CenterComment on above:Performed By: #### CBC ####[facility] Ditrnvzvef3438[address] [place], [place] [address]Dr.Airam TripathiNEUT #3.7 103/ulNormal1.4-6.5The [facility] CenterComment on above:Performed By: #### CBC ####[facility] Xugcsemrnl014[address] [place], [place] [address]Dr.Airam TripathiNeutrophils/100 WBC (Bld)60.6 %Zjqock17.0-75.0The [facility] HospitalComment on above:Performed By: #### CBC ####[facility] Hvxcvulbua1295[address] [place], [place] [address]Dr.Airam TripathiPlatelet mean volume (Bld) [Entitic vol]9.1 fLCritically low 9.5-13.5The [facility] HospitalComment on above:Performed By: #### CBC ####[facility] Zcogokvmmi7325 [place], [place] [address]Eu. Yilan UpylsRAH825 103/ohDvpzlw606-955Dxx [facility] CenterComment on above: Performed By: #### CBC ####[facility] Owvgqoxxyw18[address] [place] [id number].Yilan ChangRBC3.04 106/ulCritically low4.20-5.40The [facility] CenterComment on above:Performed By: #### CBC ####[facility] Sansdcfxmp72[address] [place] [address]Dr.Yilan ChangWBC6.1 103/ul Normal4.0-11.0The [facility] CenterComment on above:Performed By: #### CBC ####[facility] Qvyvprksbu4835 [place] [address]Dr. Yilan ChangCT STROKE HEAD WOon 22-84-0844MV STROKE HEAD WONormalThe [facility] Medical CenterPROF CHEM 8 (BAS METB)on 58-97-5468Okhgx gap [Moles/Vol]9.8 mmol/LNormal The [facility] CenterComment on above:Performed By: #### VERONICA, HSTROPN ####[facility] Cktqpepdlf[address] [place], [place] [address]Dr. Yilan ChangCalcium [Mass/Vol]8.4 mg/dLCritically low8.5-10.1The [facility] CenterComtr[facility] on above:Performed By: #### VERONICA, HSTROPN ####[facility] Ephbaeojyl9421 [place], [place]Dr. Yilan ChangChloride [Moles/Vol]99 mmol/UDfajeg64-578Orf [facility] CenterComtr[facility] on above:Performed By: #### VERONICA, HSTROPN ####[facility] Qhlewazivh4[address] [place] [address]Dr. Yilan ChangCO2 [Moles/Vol]28.3 mmol/LNormal 21.0-32.0The [facility] CenterComment on above:Performed By: #### VERONICA, HSTROPN ####[facility] Stcrqhztwm20[address] [place], [place]Dr. Yilan ChangCreatinine [Mass/Vol]1.40 mg/dLCritically high0.55-1.02The [facility] CenterComment on above:Performed By: #### VERONICA, HSTROPN ####[facility] Yicsoojxfe7392 [place], [place]Dr. Yilan ChangEGFR-AF KDPPNCWK17 mL/min/1.28z5Ttmdudqylg low>=60The [facility] HospitalComment on above: Performed By: #### VERONICA, HSTROPN ####[facility] Dvhcruxakx5478 [place], [place]Dr. Yilan ChangEGFR-NON AF BXYOLTHB64 mL/min/1.73m2 Critically low>=60The [facility] CenterComment on above:Performed By: #### VERONICA, HSTROPN ####[facility] Zknrbtyoba3862 [place], [place] [address]Io. Yilan ChangGlucose [Mass/Vol]88 mg/mLHidqnz92-890Ctm [facility] Comment on above:Performed By: #### VERONICA, HSTROPN ####[facility] Lbtxdlgtoi3018 [place], [place]Dr. Yilan ChangPotassium [Moles/Vol]5.1 mmol/LNormal3.5-5.1The [facility] CenterComment on above: Performed By: #### VERONICA, HSTROPN ####[facility] Xuzeovvsmv7738 [place], [place]Dr. Yilan ChangSodium [Moles/Vol]132 mmol/LCritically ayf324-308Adv [facility] CenterComment on above:Performed By: #### VERONICA, HSTROPN ####[facility] Vhjillfyog4787 [place], [place]Dr. Yilan ChangUrea nitrogen [Mass/Vol]56.0 mg/dLCritically high7.0-18.0The [facility] CenterComment on above:Performed By: #### BMP, HSTROPN ####[facility] Jyeibditle5488 [place], [place]Dr. Yilan ChangUrea nitrogen/Creatinine [Mass ratio]40.0 mg/mgNormalThe [facility] CenterComment on above:Performed By: #### VERONICA HSTROPN ####[facility] Prikbtkhvx4[address] [place], [place] [address]Dr. Yilan ChangTROPONIN, HIGH SENSITIVITYon 59-79-7065ZDDUWC7.9 pg/mLNormal4.0-51.3The [facility] CenterComment on above: Result Comment: CUT-OFF POINTS HAVE BEEN ESTABLISHED BASED ON THE FOURTH UNIVERSAL DEFINITIONS OF MYOCARDIALINFARCTION. THE UPPER REFERENCE LIMIT (URL) OF TROPONIN, DEFINED THE 99TH PERCENTILE OFcTnI DISTRIBUTION IN A REFERENCE POPULATION, HAS BEEN CONFIRMED THE DECISION THRESHOLDFOR UT DIAGNOSIS. Performed By: #### VERONICA HSTROPN ####[facility] Syukfifyat[address] [place], [place] [address]Dr. Yilan ChangXR CHEST 1 Von 72-12-6300NF CHEST 1 V NormalThe [facility] AUTO DIFFon 76-40-5861FOOL #0.0 103/ulNormal 0.0-0.1The [facility] CenterComment on above:Performed By: #### CBC ####[facility] Fqyrqmnatd915[address] [place], [place] [address]Dr.Yilan Tripathi Basophils/100 WBC (Bld)0.4 %Normal0.2-2.0The [facility] CenterComtr[facility] on above: Performed By: #### CBC ####[facility] Ejbzvyhaxk85[address] [place], [place] [address]Dr.Yilan ChangEO #0.4 103/ulNormal0.0-0.7The [facility] CenterComtr[facility] on above:Performed By: #### CBC ####[facility] Xmgcaphthl[address] [place], [place] [address]Dr.Yilan ChangEosinophils/100 WBC (Bld)4.6 %Normal0.9-7.0The [facility] CenterComtr[facility] on above:Performed By: #### CBC ####[facility] Heycxisxva3718[address] [place], [place] [address]Dr.Yilan ChangErythrocyte distribution width (RBC) [Ratio]15.8 %Critically high11.0-15.0The [facility] CenterComment on above:Performed By: #### CBC ####[facility] Xocgdvytvy457[address] [place], [place] [address]Dr. Airam ChangHematocrit (Bld) [Volume fraction]30.3 %Critically low36.0-48.0The [facility] HospitalComment on above:Performed By: #### CBC ####[facility] Zigjjdwsno0812[address] [place], [place] [address]Dr.Selenaneil ChangHemoglobin (Bld) [Mass/Vol]9.3 g/dLCritically low12.0-16.0The [facility] CenterComment on above:Performed By: #### CBC ####[facility] Jaldjsywok1501[address] [place], [place] [address]Dr.Yineil ChangIG #0.03 10e3/ulNormal0.00-0.03The [facility] CenterComment on above:Performed By: #### CBC ####[facility] Hasmczyjtl9811[address] [place], [place] [address]Dr.Selenaneil ChangIG %0.4 %Normal 0.0-0.5The [facility] CenterComment on above:Performed By: #### CBC ####[facility] Ylzkgdbudp456[address] [place], [place] [address]Dr.Selenaneil ChangLYMPH #2.0 103/ulNormal1.2-3.8The [facility] CenterComment on above:Performed By: #### CBC ####[facility] Epjpuaqwue5915[address] [place], [place] [address]Dr.Airam ChangLymphocytes/100 WBC (Bld)24.5 %Lsmygb17.5-60.0The [facility] CenterComment on above:Performed By: #### CBC ####[facility] Eibzvumwoe8680[address] [place], [place] [address]Dr.Selenaneil ChangMANUAL DIFF REQ NONormalThe [facility] CenterComment on above:Performed By: #### CBC ####[facility] Xlorutulcd39[address] [place] [address]Dr. Airam DeuceH (RBC) [Entitic mass]28.9 bmRlttgq30.7-34.0The [facility] Comment on above:Performed By: #### CBC ####[facility] Reeptyqdhw2904[address] [place], [place] [address]Dr.Airam TripathiHC (RBC) [Mass/Vol]30.7 g/dL Eqhuff88.9-35.2The [facility] CenterComment on above:Performed By: #### CBC ####[facility] Ohurjkopym3168[address] [place], [place] [address]Dr. Airam DeuceV (RBC) [Entitic vol]94.1 eNXhfigs34.0-99.0The [facility] Comment on above:Performed By: #### CBC ####[facility] Whmqaebnhh0447[address] [place], [place] [address]Dr.Airam TripathiMONO #0.7 103/ulNormal0.3-0.8 The [facility] CenterComment on above:Performed By: #### CBC ####[facility] Hgymtacdvy049[address] [place], [place] [address]Dr.Airam Tripathi Monocytes/100 WBC (Bld)8.3 %Normal1.7-12.0The [facility] CenterComment on above: Performed By: #### CBC ####[facility] Eftpvznxzu8577[address] [place], [place] [address]Dr.Selenaneil DeuceNEUT #5.0 103/ulNormal1.4-6.5The [facility] CenterComment on above:Performed By: #### CBC ####[facility] Sbvjkfxluv3230[address] [place], [place] [address]Dr.Selenaneil TripathiNeutrophils/100 WBC (Bld)61.8 %Kcyynd84.0-75.0The [facility] CenterComment on above:Performed By: #### CBC ####[facility] Qaiuahvlua4527[address] [place], [place] [address]Dr.Airam TripathiPlatelet mean volume (Bld) [Entitic vol]9.4 fLCritically low 9.5-13.5The [facility] CenterComment on above:Performed By: #### CBC ####[facility] Qwsohonjer5[address] [place] [address]Dr. Selenaneil NxlnqYWM958 103/fjLctseb228-182Cud [facility] CenterComment on above: Performed By: #### CBC ####[facility] Cpqkvzapgl7292 [place] [address]Dr.Airam ChangRBC3.22 106/ulCritically low4.20-5.40The [facility] CenterComment on above:Performed By: #### CBC ####[facility] Igixpmviup5030[address] [place], [place] [address]Dr.Selenaneil ChangWBC8.1 103/ul Normal4.0-11.0The [facility] CenterComment on above:Performed By: #### CBC ####[facility] Rimmrtcvxc3194[address] [place], [place] [address]Dr. Airam ChangPROF 14(COMP METB)on 24-02-8548Aolfqhc [Mass/Vol]3.2 g/dLCritically low3.4-5.0The [facility] CenterComment on above:Performed By: #### CMP ####[facility] Zlexrhotdu5104[address] [place], [place] [address]Dr. Airam ChangAlbumin/Globulin [Mass ratio]1.0 {ratio}NormalHocking Valley Community Hospital Comment on above:Performed By: #### CMP ####[facility] Uirmbueuio2411[address] [place], [place] [address]Dr.Airam ChangALP [Catalytic activity/Vol] 108 U/LDithsk02-393Emp [facility] CenterComment on above:Performed By: #### CMP ####[facility] Lbeuvehlri7748[address] [place], [place] [address]Dr. Yilan ChangALT [Catalytic activity/Vol]30 U/HVzpeta94-86Oar [facility] Comment on above:Performed By: #### CMP ####[facility] Ncdkfruwmx8520[address] [place], [place] [address]Dr.Airam TripathiAnion gap [Moles/Vol]12.8 mmol/LNormalThe [facility] CenterComment on above:Performed By: #### CMP ####[facility] Psixisaccr[address] [place] [id number]. Yilan ChangAST [Catalytic activity/Vol]33 U/RYdhtwl31-97Tsm [facility] Comment on above:Performed By: #### CMP ####[facility] Qtpdxhbvbt2419 [place] [address]Dr.Yilan ChangBilirubin [Mass/Vol]0.2 mg/dL Normal0.2-1.0The [facility] CenterComment on above:Performed By: #### CMP ####[facility] Moepekgjev30[address] [place] [address]Dr. Yilan ChangCalcium [Mass/Vol]8.3 mg/dLCritically low8.5-10.1The [facility] CenterComment on above:Performed By: #### CMP ####[facility] Qcpfqxollu8517[address] [place], [place] [address]Dr.Yilan ChangChloride [Moles/Vol]99 mmol/BMrytso65-448Eqp [facility] CenterComment on above:Performed By: #### CMP ####[facility] Mmirspjcqd4139[address] [place], [place] [address]Dr.Yilan ChangCO2 [Moles/Vol]27.6 mmol/IXaiofu60.0-32.0The [facility] CenterComment on above:Performed By: #### CMP ####[facility] Rckptwbiov6458[address] [place], [place] [address]Dr.Yilan ChangCreatinine [Mass/Vol]2.01 mg/dLCritically high0.55-1.02The [facility] CenterComment on above:Performed By: #### CMP ####[facility] Extpmfsgxb43[address] [place], [place] [address]Dr.Yilan ChangEGFR-AF ZGZELZRX97 mL/min/1.73m2 Critically low>=60The [facility] CenterComment on above:Performed By: #### CMP ####[facility] Urfgvepkdp2194[address] [place], [place] [address]Dr. Yilan ChangEGFR-NON AF RECWMBGP77 mL/min/1.15p3Zmpytxnnpo low>=60The [facility] CenterComment on above:Performed By: #### CMP ####[facility] Easqqximpk7906[address] [place], [place] [address]Dr.Yilan ChangGlobulin (S) [Mass/Vol]3.2 g/dLNormWhite HospitalComment on above:Performed By: #### CMP ####[facility] Jjlanvunzy1037[address] [place], [place] [address]Dr.Yilan ChangGlucose [Mass/Vol]158 mg/dLCritically uvph33-135Xpp [facility] CenterComment on above:Performed By: #### CMP ####[facility] Funmwxezxl1019[address] [place], [place] [address]Dr.Yilan ChangPotassium [Moles/Vol]5.4 mmol/LCritically high3.5-5.1The [facility] CenterComment on above:Performed By: #### CMP ####[facility] Bkxkkguxrs7696[address] [place], [place] [address]Dr.Yilan ChangProtein [Mass/Vol]6.4 g/dLNormal6.4-8.2 The [facility] HospitalComment on above:Performed By: #### CMP ####[facility] Zcyixscpfa817[address] [place], [place] [address]Dr.Yilan ChangSodium [Moles/Vol]134 mmol/LCritically txy221-060Rod [facility] CenterComment on above:Performed By: #### CMP ####[facility] Upqmlhxjou83[address] [place], [place] [address]Dr.Yilan ChangUrea nitrogen [Mass/Vol]52.0 mg/dL Critically high7.0-18.0The [facility] HospitalComment on above:Performed By: #### CMP ####[facility] Xkunfycexy8599[address] [place], [place] [address]Dr. Yilan ChangUrea nitrogen/Creatinine [Mass ratio]25.9 mg/mgNoGlenbeigh HospitalComment on above:Performed By: #### CMP ####[facility] Rpmyirkfjy6970[address] [place], [place] [address]Dr.Yilan ChangOSMOLALITYon 71-21-5303Xhibeiegvt [Osmolality]261 mosm/kgCritically uze738-434Ugi [facility] CenterComment on above:Performed By: #### OSMO ####[facility] Govvycoymp5360[address] [place], [place] [address]Dr. Airam TripathiXR HIPS GUMARO 3_4V WO PELVISon 63-72-7915EL HIPS GUMARO 3_4V WO PELVISNormalThe [facility] XR KNEE LT 4V or >on 75-76-1316YJ KNEE LT 4V or >NormalThe [facility] CenterBNP on 82-49-4392Ntwitkwzwjm peptide B (Bld) [Mass/Vol]1168.0 pg/mLCritically high <=900.0The [facility] CenterComment on above:Performed By: #### BNP, BMP ####[facility] Wvvkutaxta[address] [place], [place] [address]Dr. Airam TripathiCBC AUTO DIFFon 50-81-4865UEDX #0.0 103/ulNormal0.0-0.1The [facility] CenterComment on above:Performed By: #### CBC ####[facility] Lycwlwzujn1349[address] [place], [place] [address]Dr.Airam TripathiBasophils/100 WBC (Bld)0.3 %Normal0.2-2.0The [facility] CenterComment on above:Performed By: #### CBC ####[facility] Rfzybcqyoe03[address] [place], [place] [address]Dr.Airam ChangEO #0.2 103/ulNormal0.0-0.7The [facility] CenterComment on above:Performed By: #### CBC ####[facility] Hplctgfeeb624[address] [place], [place] [address]Dr.Airam ChangEosinophils/100 WBC (Bld)1.9 %Normal 0.9-7.0The [facility] CenterComment on above:Performed By: #### CBC ####[facility] Znrwzjqzet413[address] [place], [place] [address]Dr.Airam Tripathi Erythrocyte distribution width (RBC) [Ratio]15.2 %Critically high11.0-15.0H[facility] HospitalComment on above:Performed By: #### CBC ####[facility] Kjjqzcnvub737[address] [place], [place] [address]Dr.Airam TripathiHematocrit (Bld) [Volume fraction]34.3 %Critically low36.0-48.0The [facility] HospitalComment on above:Performed By: #### CBC ####[facility] Zarvftolef7513[address] [place], [place] [address]Dr.Airam TripathiHemoglobin (Bld) [Mass/Vol]11.0 g/dL Critically low12.0-16.0The [facility] HospitalComment on above:Performed By: #### CBC ####[facility] Idsglikase0649[address] [place], [place] [address]Dr. Airam TripathiIG #0.06 10e3/ulCritically high0.00-0.03The [facility] CenterComment on above:Performed By: #### CBC ####[facility] Xpcpwjmwjh26[address] [place], [place] [address]Dr.Airam TripathiIG %0.5 %Normal0.0-0.5The [facility] HospitalComment on above:Performed By: #### CBC ####[facility] Hngqhsufvu[address] [place], [place] [address]Dr.Airam TripathiLYMPH #2.3 103/ulNormal1.2-3.8The [facility] CenterComment on above:Performed By: #### CBC ####[facility] Kyfjxjjbzm8836[address] [place], [place] [address]Dr. Airam TripathiLymphocytes/100 WBC (Bld)20.4 %Critically low20.5-60.0The [facility] HospitalComment on above:Performed By: #### CBC ####[facility] Gazwlkwyzd493[address] [place], [place] [address]Dr.Airam TripathiMANUAL DIFF REQ NONormalThe [facility] CenterComment on above:Performed By: #### CBC ####[facility] Eaqoaqlznd[address] [place], [place] [address]Dr. Airam TirpathiMEDISYS HEALTH NETWORK (RBC) [Entitic mass]28.7 frQxfptc33.7-34.0The [facility] Comment on above:Performed By: #### CBC ####[facility] Yyatdhylby8824[address] [place], [place] [address]Dr.Airam TripathiMCHC (RBC) [Mass/Vol]32.1 g/dL Wodibr18.9-35.2The [facility] CenterComment on above:Performed By: #### CBC ####[facility] Pvllbjqtis75[address] [place], [place] [address]Dr. Airam TripathiMCV (RBC) [Entitic vol]89.6 oHBmhliq27.0-99.0The [facility] Comment on above:Performed By: #### CBC ####[facility] Robdxwocvf114[address] [place], [place] [address]Dr.Airam TripathiMONO #0.9 103/ulCritically high0.3-0.8The [facility] CenterComment on above:Performed By: #### CBC ####[facility] Inpiayhrsk[address] [place], [place] [address]Dr. Airam TripathiMonocytes/100 WBC (Bld)8.3 %Normal1.7-12.0[facility] Comment on above:Performed By: #### CBC ####[facility] Eifvngtgvk8[address] [place], [place] [address]Dr.Airam TripathiNEUT #7.8 103/ulCritically high1.4-6.5The [facility] CenterComment on above:Performed By: #### CBC ####[facility] Lhmefdkzwh[address] [place], [place] [address]Dr. Airam TripathiNeutrophils/100 WBC (Bld)68.6 %Rkpika62.0-75.0The [facility] Comment on above:Performed By: #### CBC ####[facility] Fwnioppxjc[address] [place], [place] [address]Dr.Airam TripathiPlatelet mean volume (Bld) [Entitic vol]8.9 fLCritically low9.5-13.5The [facility] CenterComment on above: Performed By: #### CBC ####[facility] [address] [place] [address]Dr.Yilan EoevcVLB052 103/uhKcwfaj170-822Xbs [facility] CenterComment on above:Performed By: #### CBC ####[facility] Qcocanrxxc[address] [place], [place] [address]Dr.Yilan ChangRBC3.83 106/ul Critically low4.20-5.40The [facility] CenterComment on above:Performed By: #### CBC ####[facility] Wlsyrqgwlo[address] [place], [place] [address]Dr. Yilan TqnmzZRI54.4 103/ulCritically high4.0-11.0The [facility] CenterComment on above:Performed By: #### CBC ####[facility] Tarhyslfvl[address] [place], [place] [address]Dr.Yilan ChangBASO #0.0 103/ulNormal0.0-0.1The [facility] CenterComment on above:Performed By: #### CBC ####[facility] Arjwflcbxu[address] [place], [place] [address]Dr.Yilan ChangBasophils/100 WBC (Bld)0.2 %Normal0.2-2.0The [facility] CenterComtrinity [facility] on above:Performed By: #### CBC ####[facility] Ewalbprjtd[address] [place], [place] [address]Dr.Yilan ChangEO #0.1 103/ulNormal0.0-0.7The [facility] CenterComment on above:Performed By: #### CBC ####[facility] Hkyvfjlqsc38[address] [place], [place] [address]Dr.Yilan ChangEosinophils/100 WBC (Bld)0.7 %Critically low0.9-7.0The [facility] CenterComment on above:Performed By: #### CBC ####[facility] Bmhatuvrid[address] [place], [place] [address]Dr. Yilan ChangErythrocyte distribution width (RBC) [Ratio]15.4 %Critically high 11.0-15.0The [facility] CenterComment on above:Performed By: #### CBC ####[facility] [address] [place] [address]Dr. Selenaneil DeuceHematocrit (Bld) [Volume fraction]33.6 %Critically low36.0-48.0The [facility] CenterComment on above:Performed By: #### CBC ####[facility] Ptnggfeksf[address] [place] [address]Dr.Airam TripathiHemoglobin (Bld) [Mass/Vol]10.9 g/dLCritically low12.0-16.0The [facility] HospitalComment on above:Performed By: #### CBC ####[facility] Mnuraoline[address] [place], [place] [address]Dr.Selenalan ChangIG #0.04 10e3/ulCritically high0.00-0.03 The [facility] CenterComment on above:Performed By: #### CBC ####[facility] Mrofqoffis69[address] [place], [place] [address]Dr.Airam ChangIG % 0.5 %Normal0.0-0.5The [facility] CenterComment on above:Performed By: #### CBC ####[facility] Bxglswdomk29[address] [place], [place] [address]Dr. Airam ChangLYMPH #1.1 103/ulCritically low1.2-3.8The [facility] CenterComment on above:Performed By: #### CBC ####[facility] Deqlahjpex5[address] [place], [place] [address]Dr.Airam TripathiLymphocytes/100 WBC (Bld)13.3 % Critically low20.5-60.0The [facility] CenterComment on above:Performed By: #### CBC ####[facility] Scpcequkeh257[address] [place], [place] [address]Dr. Airam TripathiMANUAL DIFF REQNONormalThe [facility] Medical CenterComment on above: Performed By: #### CBC ####[facility] Lhsmxglcli1955[address] [place], [place] [address]Dr.Airam TripathiMCH (RBC) [Entitic mass]29.1 pgNormal 26.7-34.0The [facility] CenterComment on above:Performed By: #### CBC ####[facility] Pfmubwqbdy[address] [place] [address]Dr. Selenaneil TripathiMCHC (RBC) [Mass/Vol]32.4 g/cSPpgrgb68.9-35.2The [facility] Comment on above:Performed By: #### CBC ####[facility] Eihioydtsq67[address] [place], [place] [address]Dr.Airam TripathiMCV (RBC) [Entitic vol]89.6 fL Qfmelq92.0-99.0The [facility] HospitalComment on above:Performed By: #### CBC ####[facility] Feuljnmpke9[address] [place], [place] [address]Dr. Airam TripathiMONO #0.5 103/ulNormal0.3-0.8The [facility] HospitalComment on above: Performed By: #### CBC ####[facility] Toprzsiccb99[address] [place], [place] [address]Dr.Airam TripathiMonocytes/100 WBC (Bld)6.4 %Normal 1.7-12.0The [facility] CenterComment on above:Performed By: #### CBC ####[facility] Wobmwmmcti7[address] [place], [place] [address]Dr. Airam TripathiNEUT #6.5 103/ulNormal1.4-6.5The [facility] CenterComment on above: Performed By: #### CBC ####[facility] Edffppimzm60[address] [place], [place] [address]Dr.Airam TripathiNeutrophils/100 WBC (Bld)78.9 % Critically high43.0-75.0The [facility] HospitalComment on above:Performed By: #### CBC ####[facility] Dezzhwihdl18[address] [place], [place] [address]Dr. Airam TripathiPlatelet mean volume (Bld) [Entitic vol]9.4 fLCritically low9.5-13.5 The [facility] HospitalComment on above:Performed By: #### CBC ####[facility] Himgbcvlao3215[address] [place], [place] [address]Dr.Yilan NkfxoADE265 103/prJtnabb202-891Vpu [facility] CenterComment on above:Performed By: #### CBC ####[facility] Yszcsvtahl[address] [place] [address]Dr. Aiarm ChangRBC3.75 106/ulCritically low4.20-5.40The [facility] CenterComment on above:Performed By: #### CBC ####[facility] Nheuuhrapd23[address] [place] [address]Dr.Airam ChangWBC8.3 103/ulNormal4.0-11.0The [facility] CenterComment on above:Performed By: #### CBC ####[facility] Zdnuhywxlq0875[address] [place], [place] [address]Dr.Airam ChangCT HEAD WO CON on 43-44-8796YV HEAD WO CONNormalHocking Valley Community HospitalPROF 14(COMP METB)on 24-35-8197Vnepgej [Mass/Vol]3.2 g/dLCritically low3.4-5.0The [facility] Comment on above:Performed By: #### CMP ####[facility] Ysyqycltzw4536[address] [place], [place] [address]Dr.Airam ChangAlbumin/Globulin [Mass ratio] 0.9 {ratio}NormalThe [facility] Medical CenterComment on above:Performed By: #### CMP ####[facility] Cunbhhunag[address] [place], [place] [address]Dr. Airam TripathiALP [Catalytic activity/Vol]109 U/FTbomez50-837Biv [facility] Comment on above:Performed By: #### CMP ####[facility] Wxkjdxalnu36[address] [place] [address]Dr.Airam ChangALT [Catalytic activity/Vol]25 U/YLpjhrs81-06Mgx [facility] CenterComment on above:Performed By: #### CMP ####[facility] Lluvbabozt[address] [place] [address]Dr. Airam TripathiAnion gap [Moles/Vol]10.9 mmol/LNormalThe [facility] CenterComment on above:Performed By: #### CMP ####[facility] Sctgeunpes2797[address] [place], [place] [address]Dr.Yilan ChangAST [Catalytic activity/Vol]24 U/LNormal 15-37The [facility] on above:Performed By: #### CMP ####[facility] Eizhicwsik29[address] [place], [place] [address]Dr.Yilan Tripathi Bilirubin [Mass/Vol]0.3 mg/dLNormal0.2-1.0The [facility] CenterComment on above: Performed By: #### CMP ####[facility] Ajjhxdxeaw6594[address] [place], [place] [address]Dr.Yilan ChangCalcium [Mass/Vol]8.6 mg/dLNormal 8.5-10.1The [facility] CenterComtr[facility] on above:Performed By: #### CMP ####[facility] Okfvvujcuv6955[address] [place], [place] [address]Dr. Yilan ChangChloride [Moles/Vol]95 mmol/LCritically lfu89-173Njn [facility] on above:Performed By: #### CMP ####[facility] Mektrdeuqs4797[address] [place], [place] [address]Dr.Yilan ChangCO2 [Moles/Vol] 27.8 mmol/AVspuny14.0-32.0The [facility] CenterComtr[facility] on above:Performed By: #### CMP ####[facility] Uhdswmjokh9248[address] [place], [place] [address]Dr.Yilan ChangCreatinine [Mass/Vol]1.07 mg/dLCritically high0.55-1.02The [facility] CenterComtr[facility] on above:Performed By: #### CMP ####[facility] Agefoarqvx593[address] [place], [place] [address]Dr.Yilan ChangEGFR-AF YEMENI>60Normal>=60The [facility] on above:Performed By: #### CMP ####[facility] Xqyukukjct[address] [place], [place] [address]Dr. Yilan ChangEGFR-NON AF GKIHOQRK21 mL/min/1.41k1Euptgdvhzu low>=60The [facility] Hospitalment on above:Performed By: #### CMP ####[facility] Xgqjzyzgcp[address] [place] [address]Dr.Yilan ChangGlobulin (S) [Mass/Vol]3.5 g/dLNormWhite HospitalComment on above:Performed By: #### CMP ####[facility] Vtqynlyshl40[address] [place] [address]Dr.Yilan ChangGlucose [Mass/Vol]86 mg/vACcdlzd74-937Lco [facility] Comment on above:Performed By: #### CMP ####[facility] Lodmlgppxe7139[address] [place], [place] [address]Dr.Yilan ChangPotassium [Moles/Vol]4.7 mmol/LNormal3.5-5.1The [facility] CenterComment on above:Performed By: #### CMP ####[facility] Dqlfrfndsm096[address] [place], [place] [address]Dr. Yilan ChangProtein [Mass/Vol]6.7 g/dLNormal6.4-8.2The [facility] CenterComment on above:Performed By: #### CMP ####[facility] Lueybgelbu[address] [place], [place] [address]Dr.Yilan ChangSodium [Moles/Vol]129 mmol/LCritically lrc253-848Mwa [facility] CenterComment on above:Performed By: #### CMP ####[facility] Kaqynitchi8[address] [place], [place] [address]Dr. Yilan ChangUrea nitrogen [Mass/Vol]19.0 mg/dLCritically high7.0-18.0The [facility] CenterComment on above:Performed By: #### CMP ####[facility] Mveyxavlpg399[address] [place], [place] [address]Dr.Yilan ChangUrea nitrogen/Creatinine [Mass ratio]17.8 mg/mgNoGlenbeigh HospitalComment on above:Performed By: #### CMP ####[facility] Kjegdfrirk27[address] [place], [place] [address]Dr.Yilan ChangPROF CHEM 8 (BAS METB)on 25-53-8055Wyfjb gap [Moles/Vol]9.0 mmol/LNormalThe [facility] CenterComment on above:Performed By: #### BNP, BMP ####[facility] Szznkltxbe6555[address] [place], [place] [address]Dr. Yilan ChangCalcium [Mass/Vol]8.5 mg/dLNormal8.5-10.1The [facility] HospitalComment on above:Performed By: #### BNP, BMP ####[facility] Meguxbtkbe6304[address] [place], [place] [address]Dr. Yilan ChangChloride [Moles/Vol]93 mmol/LCritically oqf00-762Pdc [facility] CenterComment on above: Performed By: #### BNP, BMP ####[facility] Ppqfvkxtxw754[address] [place], [place] [address]Dr. Yilan ChangCO2 [Moles/Vol]28.1 mmol/LNormal 21.0-32.0The [facility] CenterComment on above:Performed By: #### BNP, BMP ####[facility] Nfrpbtgwew8666[address] [place], [place] [address]Dr. Yilan ChangCreatinine [Mass/Vol]1.17 mg/dLCritically high0.55-1.02The [facility] CenterComment on above:Performed By: #### BNP, BMP ####[facility] Jspequhlmm7910[address] [place], [place] [address]Dr. Yilan ChangEGFR-AF IIINVBPR19 mL/min/1.87h1Agycqdztva low>=60The [facility] CenterComment on above: Performed By: #### BNP, BMP ####[facility] Jzegadfftl64[address] [place], [place] [address]Dr. Yilan ChangEGFR-NON AF KBGPEUVA22 mL/min/1.73m2 Critically low>=60The [facility] CenterComment on above:Performed By: #### BNP, BMP ####[facility] Urvrfaqotq9816[address] [place], [place] [address]Dr. Yilan ChangGlucose [Mass/Vol]107 mg/dLCritically esyl10-017Ahg [facility] CenterComment on above:Performed By: #### BNP, BMP ####[facility] Mjldsxwkfa8[address] [place] [address]Dr. Airam ChangPotassium [Moles/Vol]4.1 mmol/LNormal3.5-5.1The [facility] CenterComment on above: Performed By: #### BNP, BMP ####[facility] Fhj[address]vxjnn[address] [place] [id number]. Yilan ChangSodium [Moles/Vol]126 mmol/LCritically mij036-354Mnb [facility] CenterComment on above:Performed By: #### BNP, BMP ####[facility] Jtjomociev9[address] [place] [id number]. Yilan ChangUrea nitrogen [Mass/Vol]20.0 mg/dLCritically high7.0-18.0The [facility] CenterComment on above:Performed By: #### BNP, BMP ####[facility] Ldvsxpofrb4[address] [place] [address]Dr. Yilan ChangUrea nitrogen/Creatinine [Mass ratio]17.1 mg/mgNormalThe [facility] CenterComment on above:Performed By: #### BNP, BMP ####[facility] Xguumkcfbz[address] [place] [address]Dr. Yineil ChangXR CHEST 1 Von 40-37-8157LA CHEST 1 V NormalThe [facility] CenterActivated partial thromboplastin time (aPTT) in platelet poor plasma by coagulation aOrdered By: Favian Helm on 30-63-9942pMWP Coag (PPP) [Time]31.7 s25.1-36.5FGlenbeigh HospitalAlanine aminotransferase [Enzymatic activity/volume] in Serum or PlasmaOrdered By: Favian Helm on 56-35-0947ELG [Catalytic activity/Vol]14 U/L7-52[facility] HospitalAlbumin [Mass/volume] in Serum or Plasma by Bromocresol green (BCG) dye binding methoOrdered By: Favian Helm on 24-99-5309Xcpdzce BCG dye [Mass/Vol]3.6 g/dL3.5-5.7FGlenbeigh HospitalAlkaline phosphatase [Enzymatic activity/volume] in Serum or PlasmaOrdered By: Favian Helm on 64-85-1358QHF [Catalytic activity/Vol]84 U/T83-897BkkvnhkdsWvumedicine Barnesville HospitalAspartate aminotransferase [Enzymatic activity/volume] in Serum or PlasmaOrdered By: Favian Helm on 86-81-8716HRG [Catalytic activity/Vol]21 U/L 13-39[facility] Barnesville HospitalB-Type Natriuretic Peptideon 10-28-2022 Natriuretic peptide B (Bld) [Mass/Vol]551.0 pg/mLHigh5-100[facility]ville HospitalComment on above:Result Comment: PERFORMED BY: [place] [address] PATHOLOGIST PAN GREASER TANNER GAVIN M.D.Performed By: #### [id number], MG, BMP, JOSE, FE and TIBC, RETIC #### [place] [address] USABasophils Auto (Bld) [#/Vol]Ordered By: Favian Helm on 33-13-1764Piwqqjdih (Bld) [#/Vol]0.0 10*3/uL0.0-0.2FGlenbeigh HospitalBasophils/100 WBC Auto (Bld)Ordered By: Favian Helm on 10-28-2022 Basophils/100 WBC (Bld)0.4 %.[facility] HospitalBilirubin.total [Mass/volume] in Serum or PlasmaOrdered By: Favian Helm on 12-62-5797Uqwyvwusb [Mass/Vol]0.3 mg/dL0.3-1.0[facility] HospitalCT head/brain wo con on 32-71-4514RD head/brain wo [facility] [place] [address] CT Scan Report Signed Patient: Mabel Moser MR#: [id number] : 1960 Acct:[id number] Age/Sex: 62 / F ADM Date: 10/28/22 Loc: ER Room: Type: [facility] ER Attending Dr: Copies to: Favian Helm [...] Baljinder Ball M.D.10/28/2022 7:46 PM Dictation Location: [place] [address] Transcribed By: [facility] 10/28/221945 Dictated By: Baljinder Ball DO 10/28/221934 Signed By: 10/28/221945NoKettering Health Behavioral Medical CenterCalcium [Mass/volume] in Serum or PlasmaOrdered By: Favian Helm on 33-78-6557Xqdyqho [Mass/Vol]8.2 mg/dL 8.6-10.3FGlenbeigh HospitalCarbon dioxide, total [Moles/volume] in Serum or PlasmaOrdered By: Favian Helm on 22-58-7374CS3 [Moles/Vol]25.7 mmol/L 21.0-31.0[facility] HospitalChloride [Moles/volume] in Serum or PlasmaOrdered By: Favian Helm on 68-80-4150Jvottqbx [Moles/Vol]98 mmol/L98-107 [facility] HospitalComplete Blood Count Auto Diffon 10-28-2022 Basophils (Bld) [#/Vol]0.0 10*3/uLNormal0.0-0.2FGlenbeigh Hospital Comment on above:Result Comment: PERFORMED BY: [facility] [address] [place] [address] PATHOLOGIST PAN GREASER TANNER GAVIN M.D.Performed By: #### [id number], MG, BMP, JOSE, FE and TIBC, RETIC #### [place] [address] USABasophils/100 WBC (Bld)0.4 %Normal.[facility] Barnes[facility] HospitalComment on above:Performed By: #### [id number], MG, BMP, JOSE, FE and TIBC, RETIC #### [place] [address] USAEosinophils (Bld) [#/Vol]0.1 10*3/uLNormal0.0-0.45 [facility] HospitalComtrinity health [facility] hospital on above:Performed By: #### [id number], MG, BMP, JOSE, FE and TIBC, RETIC #### [place] [address] USAEosinophils/100 WBC (Bld)1.0 %Normal.[facility] HospitalComment on above:Performed By: #### [id number], MG, BMP, JOSE, FE and TIBC, RETIC #### [place] [address] USAErythrocyte distribution width (RBC) [Ratio]16.5 %High 11.9-15.3FGlenbeigh HospitalComment on above:Performed By: #### [id number], MG, BMP, JOSE, FE and TIBC, RETIC #### [place] [address] USAHematocrit (Bld) [Volume fraction]29.9 %Low34.0-46.4 [facility] HospitalComment on above:Performed By: #### [id number], MG, BMP, JOSE, FE and TIBC, RETIC #### [place] [address] USAHemoglobin (Bld) [Mass/Vol]9.6 g/dLLow11.8-15.4FGlenbeigh HospitalComment on above:Performed By: #### [id number], MG, BMP, JOSE, FE and TIBC, RETIC #### [facility] [address] [place] [address] USALymphocytes (Bld) [#/Vol]0.8 10*3/uLLow1.00-4.8[facility] HospitalComment on above:Performed By: #### [id number], MG, BMP, JOSE, FE and TIBC, RETIC #### [facility] [address] [place] [address] USALymphocytes/100 WBC (Bld)12.8 %Normal.[facility] HospitalComment on above:Performed By: #### [id number], MG, BMP, JOSE, FE and TIBC, RETIC #### [place] [address] USAMCH (RBC) [Entitic mass]28.3 bzWnbxmd96.7-34.3FGlenbeigh HospitalComment on above:Performed By: #### [id number], MG, BMP, JOSE, FE and TIBC, RETIC #### [place] [address] USAMCV (RBC) [Entitic vol]88.3 sGDimgfm38-699LtouzmopvWvumedicine Barnesville HospitalComment on above:Performed By: #### [id number], MG, BMP, JOSE, FE and TIBC, RETIC #### [place] [address] USAMean Corpuscular HGB Conc32.0 g/xBIznggh71.0-35.0[facility] HospitalComment on above:Performed By: #### [id number], MG, BMP, JOSE, FE and TIBC, RETIC #### [place] [address] USAMonocytes (Bld) [#/Vol]0.2 10*3/uLNormal0.0-0.8[facility] HospitalComment on above:Performed By: #### [id number], MG, BMP, JOSE, FE and TIBC, RETIC #### [facility] [address] [place] [address] USAMonocytes/100 WBC (Bld)17.29 %Normal0.00-20.00[facility] Barnes[facility] HospitalComment on above:Performed By: #### [id number], MG, BMP, JOSE, FE and TIBC, RETIC #### [place] [address] USAMonocytes/100 WBC (Bld)2.5 %Normal.[facility] Barnes[facility] HospitalComment on above:Performed By: #### [id number], MG, BMP, JOSE, FE and TIBC, RETIC #### [place] [address] USANeutrophils (Bld) [#/Vol]5.5 10*3/uLNormal1.8-7.7FGlenbeigh HospitalComment on above:Performed By: #### [id number], MG, BMP, JOSE, FE and TIBC, RETIC #### [place] [address] USANeutrophils/100 WBC (Bld)83.3 %Normal.[facility] HospitalComtrinity health [facility] hospital on above:Performed By: #### [id number], MG, BMP, JOSE, FE and TIBC, RETIC #### [place] [address] USANRBC%0.0 /100{WBC}Normal0-0.5FGlenbeigh HospitalComtrinity health grand rapids hospital on above:Performed By: #### [id number], MG, BMP, JOSE, FE and TIBC, RETIC #### [place] [address] USAPlatelet mean volume (Bld) [Entitic vol]7.3 fLNormal 6.3-10.7FGlenbeigh HospitalComtrinity health grand rapids hospital on above:Performed By: #### [id number], MG, BMP, JOSE, FE and TIBC, RETIC #### [place] [address] USAPlatelets (Bld) [#/Vol]260 10*3/hKLlzmkp472-050ZryznaxhlWvumedicine Barnesville HospitalComment on above:Performed By: #### [id number], MG, BMP, JOSE, FE and TIBC, RETIC #### [facility] [address] [place] [address] USARBC (Bld) [#/Vol]3.38 10*6/uLLow3.60-5.00[facility] HospitalComment on above:Performed By: #### [id number], MG, BMP, JOSE, FE and TIBC, RETIC #### [place] [address] USAWBC (Bld) [#/Vol]6.6 10*3/uLNormal3.8-11.6FGlenbeigh HospitalComment on above:Performed By: #### [id number], MG, BMP, JOSE, FE and TIBC, RETIC #### [place] [address] USAComprehensive Metabolic Panelon 89-31-4062Npuvcpv [Mass/Vol]3.6 g/dLNormal3.5-5.7FGlenbeigh HospitalComment on above:Performed By: #### [id number], MG, BMP, JOSE, FE and TIBC, RETIC #### [place] [address] USAAlbumin/Globulin [Mass ratio]1.6 {ratio}NormalWvumedicine Barnesville HospitalComment on above:Performed By: #### [id number], MG, BMP, JOSE, FE and TIBC, RETIC #### [facility] [address] [place] [address] USAALP [Catalytic activity/Vol]84 U/EFfkmmx38-408GmscnivibWvumedicine Barnesville HospitalComment on above:Performed By: #### [id number], MG, BMP, JOSE, FE and TIBC, RETIC #### [facility] [address] [place] [address] USAALT [Catalytic activity/Vol]14 U/LNormal7-52[facility] HospitalComment on above:Performed By: #### [id number], MG, BMP, JOSE, FE and TIBC, RETIC #### [place] [address] USAAnion gap [Moles/Vol]10.0 mmol/LNormal6.0-15.0[facility] HospitalComment on above:Performed By: #### [id number], MG, BMP, JOSE, FE and TIBC, RETIC #### [place] [address] USAAST [Catalytic activity/Vol]21 U/GOdcddz44-05ZcdmadhoxWvumedicine Barnesville HospitalComment on above:Performed By: #### [id number], MG, BMP, JOSE, FE and TIBC, RETIC #### [place] [address] USABilirubin [Mass/Vol]0.3 mg/dLNormal0.3-1.0[facility] HospitalComment on above:Performed By: #### [id number], MG, BMP, JOSE, FE and TIBC, RETIC #### [place] [address] USACalcium [Mass/Vol]8.2 mg/dLLow8.6-10.3FGlenbeigh HospitalComment on above:Performed By: #### [id number], MG, BMP, JOSE, FE and TIBC, RETIC #### [place] [address] USAChloride [Moles/Vol]98 mmol/GMasmfz11-960JopejimcpWvumedicine Barnesville HospitalComment on above:Performed By: #### [id number], MG, BMP, JOSE, FE and TIBC, RETIC #### [place] [address] USACO2 [Moles/Vol]25.7 mmol/XVpcaxz83.0-31.0[facility] HospitalComment on above:Performed By: #### [id number], MG, BMP, JOSE, FE and TIBC, RETIC #### [place] [address] USACreatinine [Mass/Vol]1.23 mg/dLHigh0.60-1.20[facility] HospitalComment on above:Performed By: #### [id number], MG, BMP, JOSE, FE and TIBC, RETIC #### [facility] [address] [place] [address] USACreatinine Clr Calc Ckolpsth48.79NoKettering Health Behavioral Medical CenterComment on above:Performed By: #### [id number], MG, BMP, JOSE, FE and TIBC, RETIC #### [facility] [address] [place] [address] USAGFR/1.73 sq M.predicted MDRD (S/P/Bld) [Vol rate/Area] 50.309 mL/min/{1.73_m2}[facility] HospitalComment on above: Performed By: #### [id number], MG, BMP, JOSE, FE and TIBC, RETIC #### [facility] [address] [place] [address] USAGlobulin (S) [Mass/Vol]2.3 g/dLNoKettering Health Behavioral Medical CenterComment on above:Performed By: #### [id number], MG, BMP, JOSE, FE and TIBC, RETIC #### [facility] [address] [place] [address] USAGlucose [Mass/Vol]98 mg/dJLpvrpf85-437XlrtqdcwyWvumedicine Barnesville HospitalComment on above:Result Comment: Random Glucose Reference Range is dependent on time and content of last meal. Glucose of more than 200 mg/dL in a nonstressed, ambulatory subject supports the diagnosis of Diabetes Mellitus. ADA recommended reference rangePerformed By: #### [id number], MG, BMP, JOSE, FE and TIBC, RETIC #### [facility] [address] [place] [address] USAPotassium [Moles/Vol]4.7 mmol/LNormal3.5-5.1FGlenbeigh HospitalComment on above:Performed By: #### [id number], MG, BMP, JOSE, FE and TIBC, RETIC #### [facility] [address] [place] [address] USAProtein [Mass/Vol]5.9 g/dLLow6.4-8.9[facility] Barnesville HospitalComment on above:Performed By: #### [id number], MG, BMP, JOSE, FE and TIBC, RETIC #### [place] [address] USASodium [Moles/Vol]129 mmol/MBgz681-194TjwnmgtiyWvumedicine Barnesville HospitalComment on above:Performed By: #### [id number], MG, BMP, JOSE, FE and TIBC, RETIC #### [place] [address] USAUrea nitrogen [Mass/Vol]36 mg/dLHigh7-25Wvumedicine Barnesville HospitalComment on above:Performed By: #### [id number], MG, BMP, JOSE, FE and TIBC, RETIC #### [place] [address] USACreatine Kinaseon 94-95-5382DJ [Catalytic activity/Vol]45 U/IYkqqzk94-487FwnjcznwmWvumedicine Barnesville HospitalComment on above:Performed By: #### [id number], MG, BMP, JOSE, FE and TIBC, RETIC #### [place] [address] USACreatine kinase [Enzymatic activity/volume] in Serum or PlasmaOrdered By: Favian Helm on 26-68-1002MB [Catalytic activity/Vol]45 U/L [facility] HospitalCreatinine [Mass/volume] in Serum or PlasmaOrdered By: Favian Helm on 20-57-8498Lgbxcicgnm [Mass/Vol]1.23 mg/dL 0.60-1.20Wvumed[facility]ville HospitalECG 12 lead ECGon 63-21-5414BMF 12 lead ECGPARKWOOD [facility] [address] [place] [address] Electrocardiograph Report Signed Patient: Mabel Moser MR#: [id number] : 1960 Acct:[id number] Age/Sex: 62 / F ADM Date: 10/28/22 Loc: ER Room: Type: [facility] ER Attending Dr: Ordering Provider: [...] normal variant Confirmed by Chris MAURO DO ([id number]) on 10/28/2022 8:40:44 PM Referred By: Electronically Signed By:Chris MAURO DO Transcribed By: MUS Signed By Chris Mauro DO 0 10/28/222039NormalWvumedicine Barnesville HospitalEosinophils Auto (Bld) [#/Vol]Ordered By: Favian Helm on 86-23-6390Axzorabxyuz (Bld) [#/Vol]0.1 10*3/uL0.0-0.45W[facility]ville HospitalEosinophils/100 WBC Auto (Bld) Ordered By: Favian Helm on 91-62-0834Ycalqddlyod/100 WBC (Bld)1.0 %.[facility]ville HospitalErythrocyte distribution width Auto (RBC) [Ratio]Ordered By: Favian Helm on 09-69-1253Dmmfthvugzy distribution width (RBC) [Ratio]16.5 % 11.9-15.3FGlenbeigh HospitalGlobulin Calc (S) [Mass/Vol]Ordered By: Favian Helm on 02-15-0331Ympflwbo (S) [Mass/Vol]2.3 g/dLWvumedicine Barnesville HospitalGlucose [Mass/volume] in Serum or PlasmaOrdered By: Favian Helm on 57-89-3462Dcvjawu [Mass/Vol]98 mg/eJ00-665RmkurdegoWvumedicine Barnesville Hospital Comment on above:ADA recommended reference rangeRandom Glucose Reference Range is dependent on time and content of last meal. Glucose of more than 200 mg/dL in a nonstressed, ambulatory subject supports the diagnosisof Diabetes Mellitus. Hematocrit Auto (Bld) [Volume fraction]Ordered By: Favian Helm on 10-28-2022 Hematocrit (Bld) [Volume fraction]29.9 %34.0-46.4FGlenbeigh HospitalHemoglobin [Mass/volume] in BloodOrdered By: Favian Helm on 10-28-2022 Hemoglobin (Bld) [Mass/Vol]9.6 g/dL11.8-15.4FGlenbeigh Hospital Laboratory - CoagulationOrdered By: Favian Helm on 80-61-1476DJ Coag (PPP) [Time]11.0 s9.0-12.9W[facility] Barnesville HospitalLeukocytes [#/volume] corrected for nucleated erythrocytes in Blood by Automated counOrdered By: Favian Helm on 47-03-4621OBH corrected for nucl RBC Auto (Bld) [#/Vol]6.6 10*3/uL3.8-11.6FGlenbeigh HospitalLymphocytes Auto (Bld) [#/Vol] Ordered By: Favian Helm on 64-50-8883Uselagvrjlj (Bld) [#/Vol]0.8 10*3/uL 1.00-4.8W[facility] HospitalLymphocytes/100 WBC Auto (Bld)Ordered By: Favian Helm on 81-47-6537Mlsrfnxcron/100 WBC (Bld)12.8 %.[facility] Auto (RBC) [Entitic mass]Ordered By: Favian Helm on 95-61-7919QWR (RBC) [Entitic mass]28.3 pg24.7-34.3FTrumbull Regional Medical CenterHC Auto (RBC) [Mass/Vol]Ordered By: Favian Helm on 77-60-5149WFUJ (RBC) [Mass/Vol]32.0 g/dL32.0-35.0W[facility] HospitalMCV Auto (RBC) [Entitic vol]Ordered By: Favian Helm on 72-95-6463VXN (RBC) [Entitic vol]88.3 tS60-785WqqkeybysWvumedicine Barnesville HospitalMagnesiumon 30-29-8747Irqefcwjh [Mass/Vol]1.9 mg/dLNormal1.9-2.7FGlenbeigh HospitalComment on above:Result Comment: PERFORMED BY: [facility] [address] [place] [address] PATHOLOGIST PAN GREASER TANNER GAVIN M.D.Performed By: #### [id number], MG, BMP, JOSE, FE and TIBC, RETIC #### [facility] [address] [place] [id number] USAMagnesium [Mass/volume] in Serum or PlasmaOrdered By: Favian Helm on 06-74-5161Sxbosfxzc [Mass/Vol]1.9 mg/dL1.9-2.7FGlenbeigh HospitalMonocyte distribution width [Entitic volume] in Blood by AutomatedOrdered By: Favian Helm on 28-25-6225Zjawuudi distribution width Auto (Bld) [Entitic vol]17.29 %0.00-20.00[facility] HospitalMonocytes Auto (Bld) [#/Vol]Ordered By: Favian Helm on 03-13-0595Ifxkvuuae (Bld) [#/Vol] 0.2 10*3/uL0.0-0.8[facility] HospitalMonocytes/100 WBC Auto (Bld) Ordered By: Favian Helm on 31-83-6644Khfkqcdyd/100 WBC (Bld)2.5 %.[facility] HospitalNatriuretic peptide B [Mass/Vol]Ordered By: Favian Helm on 58-24-1910Ttblxofzfha peptide B (Bld) [Mass/Vol]551.0 pg/mL5-100W[facility]ville HospitalNeutrophils Auto (Bld) [#/Vol]Ordered By: Favian Helm on 10-57-8718Jwubscwdxtb (Bld) [#/Vol]5.5 10*3/uL1.8-7.7FGlenbeigh HospitalNeutrophils/100 WBC Auto (Bld)Ordered By: Favian Helm on 10-28-2022 Neutrophils/100 WBC (Bld)83.3 %.[facility] HospitalNo Panel InformationOrdered By: Favian Helm on 60-45-5368Rnrjryqqa GFR (CKD-EPI)50.309 mL/MinWvumedicine Barnesville HospitalPharmacy Creatinine Clearance (Chem48.79 [facility] HospitalNucleated erythrocytes [Presence] in Blood by Automated countOrdered By: Favian Helm on 19-60-6547Axapgcocd RBC Auto Ql (Bld) 0.0 /100{WBC}0-0.5FGlenbeigh HospitalPartial Thromboplastin Timeon 62-06-4592nSXY Coag (Bld) [Time]31.7 tHoeazl77.1-36.5FGlenbeigh HospitalComment on above:Result Comment: PERFORMED BY: [place] [address] PATHOLOGIST PAN GREASER TANNER GAVIN M.D.Performed By: #### [id number], MG, BMP, JOSE, FE and TIBC, RETIC #### [place] [address] USAPlatelet mean volume Auto (Bld) [Entitic vol]Ordered By: Favian Helm on 05-35-5178Cxeszlyq mean volume (Bld) [Entitic vol]7.3 fL6.3-10.7 [facility] HospitalPlatelet poor plasma international normalized ratio (INR) by coagulation assay (relatOrdered By: Favian Helm on 92-29-9121YWB Coag (PPP) [Relative time]1.0 {INR}[facility]ville HospitalComment on above:INR Therapeutic Range A) Pre- [...] Auto (Bld) [#/Vol]Ordered By: Favian Helm on 37-59-6695Dfgcyijhh (Bld) [#/Vol]260 10*3/dD269-017AeegrxvggWvumedicine Barnesville HospitalPotassium [Moles/volume] in Serum or PlasmaOrdered By: Favian Helm on 24-27-9082Bcgxcyxpy [Moles/Vol]4.7 mmol/L3.5-5.1FGlenbeigh HospitalProtein [Mass/volume] in Serum or PlasmaOrdered By: Favian Helm on 42-54-5781Wxbrchj [Mass/Vol]5.9 g/dL6.4-8.9[facility] Prothrombin Time INRon 11-46-8724MUL Coag (PPP) [Relative time]1.0 {INR}Normal [facility] HospitalComment on above:Result Comment: INR Therapeutic Range [...] heart valves: 3 - 4.5Performed By: #### [id number], MG, BMP, JOSE, FE and TIBC, RETIC #### [facility] [address] [place] [address] USAPT Coag (PPP) [Time]11.0 sNormal9.0-12.9[facility] HospitalComment on above:Performed By: #### [id number], MG, BMP, JOSE, FE and TIBC, RETIC #### [facility] [address] [place] [address] USARBC Auto (Bld) [#/Vol]Ordered By: Favian Helm on 33-78-9636ANT (Bld) [#/Vol]3.38 10*6/uL3.60-5.00Barnesville Hospitalerum or plasma albumin/globulin mass ratioOrdered By: Favian Helm on 53-78-5690Ersdwrz/Globulin [Mass ratio]1.6 {ratio}Barnesville Hospitalerum or plasma anion gap determinationOrdered By: Favian Helm on 25-52-1222Bpzuw gap [Moles/Vol]10.0 mmol/L6.0-15.0Barnesville Hospitalodium [Moles/volume] in Serum or PlasmaOrdered By: Favian Helm on 18-72-7109Vgpudt [Moles/Vol]129 mmol/Z018-700AczjpmtfdWvumedicine Barnesville Hospital Troponin I High Sensitivityon 42-98-2339Tabdnwmz I High Sensitivity5.8 pg/mL Normal0.0-15.0[facility]ville HospitalComment on above:Result Comment: PERFORMED BY: [address] [address] PATHOLOGIST PAN GREASER TANNER GAVIN M.D.Performed By: #### [id number], MG, BMP, JOSE, FE and TIBC, RETIC #### [facility] [address] [place] [address] USATroponin I.cardiac [Mass/volume] in Serum or Plasma by Detection limit <= 0.01 ng/Ordered By: Favian Helm on 60-69-5588Wfvmhtzt I.cardiac DL <= 0.01 ng/mL [Mass/Vol]5.8 pg/mL0.0-15.0W[facility]ville HospitalUrea nitrogen [Mass/volume] in Serum or PlasmaOrdered By: Favian Helm on 01-00-8540Nwfw nitrogen [Mass/Vol]36 mg/dL7-25[facility] WBC Auto (Bld) [#/Vol]Ordered By: Favian Helm on 42-30-5894RRY (Bld) [#/Vol]6.6 10*3/uL3.8-11.6FGlenbeigh HospitalXR chest 2V*on 65-09-0772RA chest 2V*[facility] [address] [place] [address] XRay Report Signed Patient: Mabel Moser MR#: [id number] : 1960 Acct:[id number] Age/Sex: 62 / F ADM Date: 10/28/22 Loc: ER Room: Type: [facility] ER Attending Dr: Copies to: Favian Helm PA-C Ordering Provider: Favian Helm PA-C Date of Service: 10/28/22 XR/XR chest 2V*: Shortness of Breath/Dyspnea Plain film chest 2 view HISTORY: Fluid overload. Shortness of breath. Headache. COMPARISON: 08/31/2018 FINDINGS: SUPPORT DEVICES: None POSTSURGICAL CHANGES: Right Xqzgmw-t-Qzyr intact with tip overlying the distal SVC. HEART: Within normal limits PULMONARY RAI: Within normal limits MEDIASTINUM: Unremarkable LUNGS AND PLEURA: No acute lung process, pleural effusion or pneumothorax identified. BONY STRUCTURES: Intact ADDITIONAL FINDINGS None XR/XR chest 2V* IMPRESSION: No acute process. Impression dictated by: Baljinder Ball M.D.10/28/2022 7:50 PM Dictation Location: [place] [address] Transcribed By: [facility] 10/28/221949 Dictated By: Baljinder Ball DO 10/28/221945 Signed By: 10/28/221949Norwalk Memorial HospitalBNPon 59-99-0546Ryzglbyysgh peptide B (Bld) [Mass/Vol]2657.0 pg/mLCritically high<=900.0The [facility] Medical CenterComment on above:Performed By: #### CMP, BNP ####[facility] [address] [place], [place] [address]Dr. Yilan ChangCBC AUTO DIFF on 54-07-5043ALTV #0.0 103/ulNormal0.0-0.1The [facility] Medical CenterComment on above: Performed By: #### CBC ####[facility] [address]zf[address] [place], [place] [address]Dr.Yilan ChangBasophils/100 WBC (Bld)0.5 %Normal 0.2-2.0The [facility] Medical CenterComment on above:Performed By: #### CBC ####[facility] S[address]uk[address]ns[address] [place], [place] [address]Dr.Yilan ChangEO # 0.3 103/ulNormal0.0-0.7The [facility] Medical CenterComment on above:Performed By: #### CBC ####[facility] Jzofheltfg[address] [place], [place] [address]Dr. Yilan ChangEosinophils/100 WBC (Bld)4.8 %Normal0.9-7.0The [facility] Comment on above:Performed By: #### CBC ####[facility] [address] [place] [address]Dr.Selenaneil ChangErythrocyte distribution width (RBC) [Ratio]15.5 %Critically high11.0-15.0The [facility] CenterComment on above:Performed By: #### CBC ####[facility] Mwtwbrajks[address] [place], [place] [address]Dr.Selenaneil ChangHematocrit (Bld) [Volume fraction]27.7 % Critically low36.0-48.0The [facility]net HospitalComment on above:Performed By: #### CBC ####[facility] Dtlaiplyff[address] [place], [place] [address]Dr. Airam ChangHemoglobin (Bld) [Mass/Vol]8.8 g/dLCritically low12.0-16.0The [facility] CenterComment on above:Performed By: #### CBC ####[facility] Xgiotuvina[address] [place], [place] [address]Dr.Airam ChangIG #0.03 10e3/ulNormal0.00-0.03The [facility] Medical CenterComment on above:Performed By: #### CBC ####[facility] Ndrpufsmvv[address] [place], [place] [address]Dr. Airam ChangIG %0.5 %Normal0.0-0.5The [facility] Medical CenterComment on above:Performed By: #### CBC ####[facility] Hinw[address] [place], [place] [address]Dr.Airam ChangLYMPH #1.6 103/ulNormal1.2-3.8The [facility] Comment on above:Performed By: #### CBC ####[facility] Ukkgrxerld6[address] [place], [place] [address]Dr.Airam TripathiLymphocytes/100 WBC (Bld)25.5 %Hsktcn24.5-60.0The [facility] CenterComment on above:Performed By: #### CBC ####[facility] Ivfdnlpgow[address] [place], [place] [address]Dr. Selenalan DeuceMANUAL DIFF REQNONormalThe [facility] Medical CenterComment on above: Performed By: #### CBC ####[facility] [address] [place] [address]Dr.Airam TripathiH (RBC) [Entitic mass]29.0 pgNormal 26.7-34.0The [facility] CenterComment on above:Performed By: #### CBC ####[facility] [address] [place] [address]Dr. Airam TripathiHC (RBC) [Mass/Vol]31.8 g/zAJhznqn53.9-35.2The [facility] Comment on above:Performed By: #### CBC ####[facility] [address] [place] [address]Dr.Airam DeuceMCV (RBC) [Entitic vol]91.4 fL Sxkcsq64.0-99.0The [facility] CenterComment on above:Performed By: #### CBC ####[facility] Nmdt[address] [place], [place] [address]Dr. Airam DeuceMONO #0.5 103/ulNormal0.3-0.8The [facility] Medical CenterComment on above: Performed By: #### CBC ####[facility] Zqukzsexvi[address] [place], [place] [address]Dr.Airam DeuceMonocytes/100 WBC (Bld)7.5 %Normal 1.7-12.0The [facility] CenterComment on above:Performed By: #### CBC ####[facility] Wkfnyvomuv[address] [place], [place] [address]Dr. Airam DeuceNEUT #3.9 103/ulNormal1.4-6.5The [facility] Medical CenterComment on above: Performed By: #### CBC ####[facility] Tzwunqwyjt[address] [place], [place] [address]Dr.Airam DeuceNeutrophils/100 WBC (Bld)61.2 %Normal 43.0-75.0The [facility] Medical CenterComment on above:Performed By: #### CBC ####[facility] Wbqfkhgryr[address] [place], [place] [address]Dr. Airam DeucePlatelet mean volume (Bld) [Entitic vol]9.4 fLCritically low9.5-13.5 The [facility] CenterComment on above:Performed By: #### CBC ####[facility] [address] [place] [address]Dr.Airam TripathiPLT247 103/obUpcwot509-312Juz [facility] CenterComment on above:Performed By: #### CBC ####[facility] Rdoyeoltnc[address] [place], [place] [address]Dr. Airam TripathiRBC3.03 106/ulCritically low4.20-5.40The [facility] CenterComment on above:Performed By: #### CBC ####[facility] Xvbmhrcflr[address] [place], [place] [address]Dr.Airam TripathiWBC6.4 103/ulNormal4.0-11.0The [facility] CenterComment on above:Performed By: #### CBC ####[facility] Mnoovatqbf[address] [place], [place] [address]Dr.Airam TripathiPROF 14(COMP METB)on 33-94-5952Zendkxd [Mass/Vol]2.5 g/dLCritically low3.4-5.0The [facility] CenterComment on above:Performed By: #### CMP, BNP ####[facility] [address]xmumrgsxm[address] [place], [place] [address]Dr. Airam Tripathi Albumin/Globulin [Mass ratio]0.9 {ratio}NormalThe [facility] Va Medical CenterComment on above:Performed By: #### CMP, BNP ####[facility] Vjheksdjuq[address] [place], [place] [address]Dr. Airam TripathiALP [Catalytic activity/Vol]108 U/L Dkxtnv83-695Ysu [facility] CenterComment on above:Performed By: #### CMP, BNP ####[facility] Lcyubconqm[address] [place], [place] [address]Dr. Airam TripathiALT [Catalytic activity/Vol]20 U/GKmpqhx26-49Tzw [facility] Comment on above:Performed By: #### CMP, BNP ####[facility] Xppaooxnlo8[address] [place], [place] [address]Dr. Yilan ChangAnion gap [Moles/Vol]10.4 mmol/LNormalThe [facility] Medical CenterComment on above:Performed By: #### CMP, BNP ####[facility] Yjmoqwaong[address] [place], [place] [address]Dr. Yilan ChangAST [Catalytic activity/Vol]20 U/BMuuetu79-24Dvf [facility] CenterComment on above:Performed By: #### CMP, BNP ####[facility] Jrmnpqjmow0[address] [place], [place] [address]Dr. Yilan Tripathi Bilirubin [Mass/Vol]0.2 mg/dLNormal0.2-1.0The [facility] Medical CenterComment on above: Performed By: #### CMP, BNP ####[facility] Uzqymsqjzs[address] [place], [place] [address]Dr. Yilan ChangCalcium [Mass/Vol]8.0 mg/dLCritically low8.5-10.1The [facility] CenterComment on above:Performed By: #### CMP, BNP ####[facility] Yxktmcouiq[address] [place], [place] [address]Dr. Yilan ChangChloride [Moles/Vol]100 mmol/QUaqlgq26-931Jik [facility] Comment on above:Performed By: #### CMP, BNP ####[facility] Ankmrarwqh24[address] [place], [place] [address]Dr. Yilan ChangCO2 [Moles/Vol]28.6 mmol/AKcnylx26.0-32.0The [facility] CenterComment on above: Performed By: #### CMP, BNP ####[facility] Uwrlrvfshe[address] [place], [place] [address]Dr. Yilan ChangCreatinine [Mass/Vol]1.66 mg/dL Critically high0.55-1.02The [facility] CenterComment on above:Performed By: #### CMP, BNP ####[facility] Uxsxhwiadq[address] [place], [place] [address]Dr. Yilan ChangEGFR-AF IVBIHCJZ29 mL/min/1.83c4Djeztnvwgk low>=60The [facility] CenterComment on above:Performed By: #### CMP, BNP ####[facility] [address] [place] [address]Dr. Yilan ChangEGFR- NON AF BJEWPASC14 mL/min/1.46f5Gfonklifsc low>=60The [facility] CenterComment on above:Performed By: #### CMP, BNP ####[facility] [address] [place] [address]Dr. Yilan ChangGlobulin (S) [Mass/Vol]2.8 g/dL NormalThe [facility] Medical CenterComment on above:Performed By: #### CMP, BNP ####[facility] Jqzcaftgvt[address] [place], [place] [address]Dr. Yilan ChangGlucose [Mass/Vol]102 mg/rXEslbkf95-138Ktr [facility] CenterComment on above:Performed By: #### CMP, BNP ####[facility] Ajppslywvf[address] [place], [place] [address]Dr. Yilan ChangPotassium [Moles/Vol]5.0 mmol/L Normal3.5-5.1The [facility] CenterComment on above:Performed By: #### CMP, BNP ####[facility] Wscgdntzru[address] [place], [place] [address]Dr. Yilan ChangProtein [Mass/Vol]5.3 g/dLCritically low6.4-8.2The [facility] Comment on above:Performed By: #### CMP, BNP ####[facility] Sovltcaija[address] [place], [place] [address]Dr. Yilan ChangSodium [Moles/Vol]134 mmol/LCritically qzn269-074Pdn [facility] CenterComment on above: Performed By: #### CMP, BNP ####[facility] Gughnxjkac[address] [place], [place] [address]Dr. Yilan ChangUrea nitrogen [Mass/Vol]45.0 mg/dL Critically high7.0-18.0The [facility] CenterComment on above:Performed By: #### CMP, BNP ####[facility] Brlbplugak[address] [place], [place] [address]Dr. Yilan ChangUrea nitrogen/Creatinine [Mass ratio]27.1 mg/mgNormalThe [facility] CenterComment on above:Performed By: #### CMP, BNP ####[facility] [address] [place] [address]Dr. Airam TripathiBNPon 28-45-1733Twzuonuzwvm peptide B (Bld) [Mass/Vol]4569.0 pg/mLCritically high <=900.0The [facility] CenterComment on above:Performed By: #### CMP, BNP ####[facility] [address] [place] [address]Dr. Selenaneil DeuceCBC AUTO DIFFon 82-62-6398MEJU #0.0 103/ulNormal0.0-0.1The [facility] on above:Performed By: #### CBC ####[facility] [address] [place] [address]Dr.Airam ChangBasophils/100 WBC (Bld)0.5 %Normal0.2-2.0The [facility] on above:Performed By: #### CBC ####[facility] Mnmbbucmfg[address] [place], [place] [address]Dr.Selenalan ChangEO #0.3 103/ulNormal0.0-0.7The [facility] on above:Performed By: #### CBC ####[facility] Cmmihwjoqj[address] [place], [place] [address]Dr.Airam ChangEosinophils/100 WBC (Bld)5.6 %Normal 0.9-7.0The [facility] Hospitalment on above:Performed By: #### CBC ####[facility] Hdjyuxdehz[address] [place], [place] [address]Dr.Airam Tripathi Erythrocyte distribution width (RBC) [Ratio]15.7 %Critically high11.0-15.0The [facility] on above:Performed By: #### CBC ####[facility] Scbmnkcgyq0[address] [place], [place] [address]Dr.Airam TripathiHematocrit (Bld) [Volume fraction]30.1 %Critically low36.0-48.0The [facility] CenterComment on above:Performed By: #### CBC ####[facility] [address]nm[address] [place] [address]Dr.Airam ChangHemoglobin (Bld) [Mass/Vol]9.2 g/dL Critically low12.0-16.0The [facility] CenterComment on above:Performed By: #### CBC ####[facility] Zvrhbzxzmx[address] [place], [place] [address]Dr. Selenalan ChangIG #0.03 10e3/ulNormal0.00-0.03The [facility] CenterComment on above: Performed By: #### CBC ####[facility] Jdcfspwnam[address] [place], [place] [address]Dr.Airam TripathiIG %0.5 %Normal0.0-0.5The [facility] CenterComment on above:Performed By: #### CBC ####[facility] Riwutkxjgj[address] [place], [place] [address]Dr.Airam DeuceLYMPH #1.7 103/ulNormal1.2-3.8The [facility] CenterComment on above:Performed By: #### CBC ####[facility] [address]pzqebizdb98[address] [place], [place] [address]Dr. Selenaneil TripathiLymphocytes/100 WBC (Bld)28.9 %Tnhvbe40.5-60.0The [facility] Comment on above:Performed By: #### CBC ####[facility] Npdlupvixj[address] [place], [place] [address]Dr.Airam TripathiMANUAL DIFF REQNONormalThe [facility] CenterComment on above:Performed By: #### CBC ####[facility] [address]yjhtpkpgd64[address] [place], [place] [address]Dr.Airam TripathiH (RBC) [Entitic mass]28.4 dkQyedou85.7-34.0The [facility] CenterComment on above: Performed By: #### CBC ####[facility] Wneqqqbvcg[address] [place], [place] [address]Dr.Airam TripathiST. PETER'[facility] (RBC) [Mass/Vol]30.6 g/dLNormal 29.9-35.2The [facility] CenterComment on above:Performed By: #### CBC ####[facility] [address] [place] [address]Dr. Airam DeuceMCV (RBC) [Entitic vol]92.9 eBFbojdg79.0-99.0The [facility] Comment on above:Performed By: #### CBC ####[facility] Dbfqahslgs[address] [place], [place] [address]Dr.Airam TripathiMONO #0.5 103/ulNormal0.3-0.8 The [facility] HospitalComment on above:Performed By: #### CBC ####[facility] Enudwvbwhg[address] [place], [place] [address]Dr.Airam Tripathi Monocytes/100 WBC (Bld)8.5 %Normal1.7-12.0The [facility] CenterComment on above: Performed By: #### CBC ####[facility] Dfnbixajih[address] [place], [place] [address]Dr.Airam TripathiNEUT #3.2 103/ulNormal1.4-6.5The [facility] CenterComment on above:Performed By: #### CBC ####[facility] Ldkdxdwrcr[address] [place], [place] [address]Dr.Selenaneil TripathiNeutrophils/100 WBC (Bld)56.0 %Kfcsao09.0-75.0[facility]Comment on above:Performed By: #### CBC ####[facility] [address] [place], [place] [address]Dr.Selenaneil TripathiPlatelet mean volume (Bld) [Entitic vol]9.4 fLCritically low 9.5-13.5[facility] HospitalComment on above:Performed By: #### CBC ####[facility] [address] [place], [place] [address]Dr. Airam TripathiPLT272 103/fbFpiqbd523-686Xpr [facility] CenterComment on above: Performed By: #### CBC ####[facility] Center Mctcdfflxr[address] [place], [place] [address]Dr.Airam TripathiRBC3.24 106/ulCritically low4.20-5.40The [facility] CenterComment on above:Performed By: #### CBC ####[facility] Nbjngcdlhh67[address] [place], [place] [address]Dr.Airam ChangWBC5.8 103/ul Normal4.0-11.0The [facility] CenterComment on above:Performed By: #### CBC ####[facility] Wqslbucekp1146[address] [place], [place] [address]Dr. Airam ChangOSMOLALITYon 90-23-3343Xcgfmlrfoe [Osmolality]282 mosm/kgNormal 275-295The [facility] CenterComment on above:Performed By: #### OSMO ####[facility] Xoopmmajmd4807[address] [place], [place] [address]Dr. Yilan ChangPROF 14(COMP METB)on 74-91-9113Duydcao [Mass/Vol]2.7 g/dLCritically low3.4-5.0The [facility] CenterComment on above:Performed By: #### CMP, BNP ####[facility] Zpukfyjjbi9[address] [place], [place] [address]Dr. Selenalan ChangAlbumin/Globulin [Mass ratio]0.9 {ratio}NormalHocking Valley Community Hospital Comment on above:Performed By: #### CMP, BNP ####[facility] Wqmocmeerw29[address] [place], [place] [address]Dr. Selenalan ChangALP [Catalytic activity/Vol]122 U/LCritically lfur13-870Qcd [facility] CenterComment on above: Performed By: #### CMP, BNP ####[facility] Ijpqwosijr5[address] [place], [place] [address]Dr. Yilan ChangALT [Catalytic activity/Vol]23 U/L Atwbae22-74Jbt [facility] CenterComment on above:Performed By: #### CMP, BNP ####[facility] Keeaeazksd6597[address] [place], [place] [address]Dr. Selenalan ChangAnion gap [Moles/Vol]10.5 mmol/LNormalThe [facility] CenterComment on above:Performed By: #### CMP, BNP ####[facility] Dgearmrc[address] [place] [address]Dr. Yilan ChangAST [Catalytic activity/Vol]22 U/L Pyymdh13-01Lcg [facility] CenterComment on above:Performed By: #### CMP, BNP ####[facility] Orhabewudk9297[address] [place], [place] [address]Dr. Yilan ChangBilirubin [Mass/Vol]0.2 mg/dLNormal0.2-1.0The [facility] Comment on above:Performed By: #### CMP, BNP ####[facility] Tkutfzpgfw278[address] [place], [place] [address]Dr. Yilan ChangCalcium [Mass/Vol]8.3 mg/dLCritically low8.5-10.1The [facility] CenterComment on above: Performed By: #### CMP, BNP ####[facility] Mmwxfxkcrq2401[address] [place], [place] [address]Dr. Yilan ChangChloride [Moles/Vol]102 mmol/LNormal 98-107The [facility] CenterComment on above:Performed By: #### CMP, BNP ####[facility] Novuffwzap212[address] [place], [place] [address]Dr. Yilan ChangCO2 [Moles/Vol]29.7 mmol/PJntzbq27.0-32.0The [facility] CenterComment on above:Performed By: #### CMP, BNP ####[facility] Ceijsjcwhz7350[address] [place], [place] [address]Dr. Yilan ChangCreatinine [Mass/Vol]1.31 mg/dL Critically high0.55-1.02The [facility] CenterComment on above:Performed By: #### CMP, BNP ####[facility] Tssbpbivwm2586[address] [place], [place] [address]Dr. Yilan ChangEGFR-AF XSIEGITI23 mL/min/1.10g5Hxlnqckpht low>=60The [facility] CenterComment on above:Performed By: #### CMP, BNP ####[facility] Rqxkocvmcl39[address] [place], [place] [address]Dr. Yilan ChangEGFR- NON AF RGVLRVAY54 mL/min/1.23m7Dtnswzswhf low>=60The [facility] HospitalComment on above:Performed By: #### CMP, BNP ####[facility] Ewsfyyyjaq026[address] [place], [place] [address]Dr. Yilan ChangGlobulin (S) [Mass/Vol]2.9 g/dL NormalThe [facility] CenterComment on above:Performed By: #### CMP, BNP ####[facility] Esufzpckad2134[address] [place], [place] [address]Dr. Yilan ChangGlucose [Mass/Vol]94 mg/sGBwxuvx70-802Ivw [facility] CenterComment on above:Performed By: #### CMP, BNP ####[facility] Awqpakxdut4314[address] [place], [place] [address]Dr. Yilan ChangPotassium [Moles/Vol]4.2 mmol/L Normal3.5-5.1The [facility] CenterComment on above:Performed By: #### CMP, BNP ####[facility] Jweattavjs3313[address] [place], [place] [address]Dr. Yilan ChangProtein [Mass/Vol]5.6 g/dLCritically low6.4-8.2The [facility] Comment on above:Performed By: #### CMP, BNP ####[facility] Bqixeaszcx1816[address] [place], [place] [address]Dr. Yilan ChangSodium [Moles/Vol]138 mmol/TQuflkl333-870Gdq [facility] CenterComment on above: Performed By: #### CMP, BNP ####[facility] Hulfbjopia594[address] [place], [place] [address]Dr. Yilan ChangUrea nitrogen [Mass/Vol]33.0 mg/dL Critically high7.0-18.0The [facility] CenterComment on above:Performed By: #### CMP, BNP ####[facility] Mxvxbvzhds106[address] [place], [place] [address]Dr. Yilan ChangUrea nitrogen/Creatinine [Mass ratio]25.2 mg/mgNormalThe [facility] CenterComment on above:Performed By: #### CMP, BNP ####[facility] Rhvemocvbj7318[address] [place], [place] [address]Dr. Yilan ChangBNPon 98-19-0772Ylotwysyejc peptide B (Bld) [Mass/Vol]3805.0 pg/mLCritically high <=900.0The [facility] CenterComment on above:Performed By: #### HSTROPN, BNP, CMP ####[facility] Hhirgxjzma[address] [place] [address]Dr. Airam TripathiCBC AUTO DIFFon 71-50-9214GUEU #0.0 103/ulNormal0.0-0.1The [facility] CenterComment on above:Performed By: #### CBC ####[facility] Piuvjyjnoi6832[address] [place], [place] [address]Dr.Airam TripathiBasophils/100 WBC (Bld)0.3 %Normal0.2-2.0The [facility] CenterComment on above:Performed By: #### CBC ####[facility] Kgnwvrhgao2104[address] [place], [place] [address]Dr.Selenalan ChangEO #0.3 103/ulNormal0.0-0.7The [facility] CenterComment on above:Performed By: #### CBC ####[facility] Ncebxvrpxw889[address] [place], [place] [address]Dr.Airam ChangEosinophils/100 WBC (Bld)4.2 %Normal 0.9-7.0The [facility] Hospitalment on above:Performed By: #### CBC ####[facility] Ifralgeiam460[address] [place], [place] [address]Dr.Airam Tripathi Erythrocyte distribution width (RBC) [Ratio]15.6 %Critically high11.0-15.0The [facility] CenterComment on above:Performed By: #### CBC ####[facility] Qrarjqdvlt2622[address] [place], [place] [address]Dr.Airam TripathiHematocrit (Bld) [Volume fraction]30.0 %Critically low36.0-48.0The [facility] CenterComment on above:Performed By: #### CBC ####[facility] Vhqlvgigvu5259[address] [place], [place] [address]Dr.Airam TripathiHemoglobin (Bld) [Mass/Vol]9.3 g/dL Critically low12.0-16.0The [facility] CenterComment on above:Performed By: #### CBC ####[facility] Flinsfymco507[address] [place], [place] [address]DrKianna TripathiIG #0.03 10e3/ulNormal0.00-0.03The [facility] CenterComment on above: Performed By: #### CBC ####[facility] Gqwkfftrnl0534[address] [place], [place] [address]Dr.Airam TripathiIG %0.5 %Normal0.0-0.5The [facility] CenterComment on above:Performed By: #### CBC ####[facility] Csairmgzxe4144[address] [place], [place] [address]Dr.Airam DossH #1.4 103/ulNormal1.2-3.8The [facility] CenterComment on above:Performed By: #### CBC ####[facility] Vocoxwlhbw0449[address] [place], [place] [address]Dr. Airam Dosshocytes/100 WBC (Bld)22.5 %Pukleh17.5-60.0The [facility] Comment on above:Performed By: #### CBC ####[facility] Uyqbnvbjnk2068[address] [place], [place] [address]Dr.Airam TripathiMANUAL DIFF REQNONormalThe [facility] CenterComment on above:Performed By: #### CBC ####[facility] Hkapgmgndt547[address] [place], [place] [address]Dr.Airam TripathiMEDISYS HEALTH NETWORK (RBC) [Entitic mass]28.7 xdDurtle65.7-34.0The [facility] CenterComment on above: Performed By: #### CBC ####[facility] Eefyvklwcb627[address] [place], [place] [address]Dr.Airam TripathiST. PETER'[facility] (RBC) [Mass/Vol]31.0 g/dLNormal 29.9-35.2The [facility] CenterComment on above:Performed By: #### CBC ####[facility] Vnplgbmqiz5549[address] [place], [place] [address]Dr. Airam TripathiMCV (RBC) [Entitic vol]92.6 mDFptybw25.0-99.0The [facility] Comment on above:Performed By: #### CBC ####[facility] Jodptbnsif473[address] [place], [place] [address]Dr.Airam TripathiMONO #0.4 103/ulNormal0.3-0.8 The [facility] CenterComment on above:Performed By: #### CBC ####[facility] Kjeivlulfw7676[address] [place], [place] [address]Dr.Airam Tripathi Monocytes/100 WBC (Bld)7.3 %Normal1.7-12.0The [facility] CenterComment on above: Performed By: #### CBC ####[facility] Fbjpcgrmux9140[address] [place], [place] [address]Dr.Airam TripathiNEUT #3.9 103/ulNormal1.4-6.5The [facility] CenterComment on above:Performed By: #### CBC ####[facility] Cvbaqbqjyn032[address] [place], [place] [address]Dr.Airam TripathiNeutrophils/100 WBC (Bld)65.2 %Vlgeas09.0-75.0The [facility] CenterComment on above:Performed By: #### CBC ####[facility] Sivqzcfhca0996[address] [place], [place] [address]Dr.Airam TripathiPlatelet mean volume (Bld) [Entitic vol]9.0 fLCritically low 9.5-13.5The [facility] CenterComment on above:Performed By: #### CBC ####[facility] Vcfvzdpnrg1116[address] [place], [place] [address]Dr. Airam TripathiPLT247 103/evEcwkqf893-658Wjt [facility] CenterComment on above: Performed By: #### CBC ####[facility] Djlcurzcpm6326[address] [place], [place] [address]Dr.Airam TripathiRBC3.24 106/ulCritically low4.20-5.40The [facility] CenterComment on above:Performed By: #### CBC ####[facility] Zqplaogslx4469[address] [place], [place] [address]Dr.Selenaneil TripathiWBC6.0 103/ul Normal4.0-11.0The [facility] CenterComment on above:Performed By: #### CBC ####[facility] [address]pmsj[address] [place] [address]Dr. Airam DeuceCULTURE URINEon 67-51-5283NUKJKEW URINECulture Observations: LIGHT GROWTH OF MIXED GENITAL GREGORY. NO POTENTIAL PATHOGENS SEEN.NormalThe [facility]net HospitalComment on above:Performed By: #### URCX ####[facility] Zhllhebzqr[address] [place] [address]Dr. Airam TripathiPOINT OF CARE GLUCOSEon 42-58-3336Yymjzcd [Mass/Vol]118 mg/dLCritically gjzx60-352Qxy [facility] CenterComment on above:Performed By: #### POCGLUC ####[facility] Aoyztbuujy[address] [place] [address]Dr. Airam TripathiPROF 14(COMP METB)on 76-60-8652Vrzxmxt [Mass/Vol]3.1 g/dLCritically low3.4-5.0The [facility] CenterComment on above:Performed By: #### HSTROPN, BNP, CMP ####[facility] Apwrifghfa5[address] [place] [address]Dr. Airam Tripathi Albumin/Globulin [Mass ratio]1.0 {ratio}NormalThe [facility] CenterComment on above:Performed By: #### HSTROPN, BNP, CMP ####[facility] Didrppfrwp8[address] [place] [address]Dr. Airam TripathiALP [Catalytic activity/Vol] 131 U/LCritically ayha80-864Quf [facility] CenterComment on above:Performed By: #### HSTROPN, BNP, CMP ####[facility] Kjthzroawn79[address] [place] [address]Dr. Airam TripathiALT [Catalytic activity/Vol]26 U/LNormal 14-59The [facility] CenterComment on above:Performed By: #### HSTROPN, BNP, CMP ####[facility] Xzhzxbhtst[address] [place] [address]Dr. Airam TripathiAnion gap [Moles/Vol]11.2 mmol/LNormalThe [facility] CenterComment on above:Performed By: #### HSTROPN, BNP, CMP ####[facility] Vtohznbcle08[address] [place] [address]Dr. Airam ChangAST [Catalytic activity/Vol] 31 U/DHtlcaj31-44Ohm [facility] CenterComment on above:Performed By: #### HSTROPN, BNP, CMP ####[facility] Ccvuyuokrm[address] [place] [address]Dr. Airam ChangBilirubin [Mass/Vol]0.2 mg/dLNormal0.2-1.0The [facility] CenterComment on above:Performed By: #### HSTROPN, BNP, CMP ####[facility] Kluckcuuac[address] [place] [address]Dr. Selenaneil Tripathi Calcium [Mass/Vol]8.6 mg/dLNormal8.5-10.1The [facility] CenterComment on above: Performed By: #### HSTROPN, BNP, CMP ####[facility] Axfwsopqil90[address] [place] [address]Dr. Selenaneil ChangChloride [Moles/Vol]102 mmol/L Kuhqql00-877Bbp [facility] CenterComment on above:Performed By: #### HSTROPN, BNP, CMP ####[facility] Tyzxrxtxvr88[address] [place] [address]Dr. Airam ChangCO2 [Moles/Vol]27.4 mmol/HBmscbu61.0-32.0The [facility] CenterComment on above:Performed By: #### HSTROPN, BNP, CMP ####[facility] Rcwsrwhtfl28[address] [place] [address]Dr. Airam Tripathi Creatinine [Mass/Vol]1.23 mg/dLCritically high0.55-1.02The [facility] Comment on above:Performed By: #### HSTROPN, BNP, CMP ####[facility] Nbmamocjrb[address] StreetB[place] [address]Gj. Yilan ChangEGFR-AF AWZATJFN60 mL/min/1.40v7Wdgtnigrtf low>=60The [facility] CenterComment on above: Performed By: #### HSTROPN, BNP, CMP ####[facility] Xofceqxyak7[address] [place] [address]Dr. Yilan ChangEGFR-NON AF HEYDKEXR47 mL/min/1.39d7Azvtesimek low>=60The [facility] CenterComment on above:Performed By: #### HSTROPN, BNP, CMP ####[facility] Fxhkitqzjl[address] [place], [place] [address]Dr. Yilan ChangGlobulin (S) [Mass/Vol]3.1 g/dLNormalThOhioHealth Shelby HospitalComment on above:Performed By: #### HSTROPN, BNP, CMP ####[facility] Wskuiiyrna[address] [place], [place] [address]Dr. Yilan ChangGlucose [Mass/Vol]90 mg/eRBeqlfb21-139Qnt [facility] CenterComtrinity [facility] on above:Performed By: #### HSTROPN, BNP, CMP ####[facility] Jktrqtolax[address] [place], [place] [address]Dr. Yilan ChangPotassium [Moles/Vol]5.6 mmol/LCritically high3.5-5.1The [facility] CenterComtrinity health [facility] on above:Performed By: #### HSTROPN, BNP, CMP ####[facility] Vaurkibide159[address] [place], [place] [address]Dr. Yilan ChangProtein [Mass/Vol]6.2 g/dLCritically low 6.4-8.2The [facility] CenterComment on above:Performed By: #### HSTROPN, BNP, CMP ####[facility] Lkbytmnuwz69[address] [place], [place] [address]Dr. Yilan ChangSodium [Moles/Vol]135 mmol/LCritically wxz096-299Ovz [facility] Hospitalment on above:Performed By: #### HSTROPN, BNP, CMP ####[facility] Mbeymbfxxa5734[address] [place], [place] [address]Dr. Yilan ChangUrea nitrogen [Mass/Vol]38.0 mg/dLCritically high7.0-18.0The [facility] CenterComment on above:Performed By: #### HSTROPN, BNP, CMP ####[facility] Iibijjiuil5[address] [place] [address]Dr. Yilan ChangUrea nitrogen/Creatinine [Mass ratio]30.9 mg/mgNormalThe [facility] CenterComment on above:Performed By: #### HSTROPN, BNP, CMP ####[facility] Bvuoipztrf12[address] [place] [address]Dr. Selenalan ChangTROPONIN, HIGH SENSITIVITYon 67-44-9334USCKYA6.0 pg/mLNormal4.0-51.3The [facility] CenterComtrinity [facility] on above: Result Comment: CUT-OFF POINTS HAVE BEEN ESTABLISHED BASED ON THE FOURTH UNIVERSAL DEFINITIONS OF MYOCARDIALINFARCTION. THE UPPER REFERENCE LIMIT (URL) OF TROPONIN, DEFINED THE 99TH PERCENTILE OFcTnI DISTRIBUTION IN A REFERENCE POPULATION, HAS BEEN CONFIRMED THE DECISION THRESHOLDFOR UT DIAGNOSIS. Performed By: #### HSTROPN, BNP, CMP ####[facility] Ijfsfdtdax0[address] [place] [address]Dr. Yilan ChangUA RANDOM W/MICROSCOPICon 88-88-4267XCLVLLLPQHVB SEENNormalNONE SEENThe [facility] CenterComtr[facility] health [facility] on above: Performed By: #### UAMIC ####[facility] Hctpxvhzbt23[address] [place] [address]Dr. Yilan ChangBilirubin Ql (U)NegativeNormalNEGATIVE The [facility] CenterComtr[facility] on above:Performed By: #### UAMIC ####[facility] Ruiwwvegkx5[address] [place] [address]Dr. Yilan ChangCAST NONE SEENNormalNONE SEENHocking Valley Community HospitalComtrinity health [facility] on above:Performed By: #### UAMIC ####[facility] Gyaosrtivq8254 [place] [address]Dr. Yilan ChangClarity (U)CLEARNormalCLEARThe [facility] CenterComment on above:Performed By: #### UAMIC ####[facility] Uynmswxxwf85[address] [place], [place] [address]Dr. Yilan ChangColor (U)LT. YELLOWNormalYELLOWHocking Valley Community HospitalComment on above:Performed By: #### UAMIC ####[facility] Slbakucudg0827[address] [place], [place] [address]Dr. Yilan ChangCrystals LM Nom (Urine sed)NONE SEENNormalNONE SEENHocking Valley Community HospitalComment on above: Performed By: #### UAMIC ####[facility] Duwsxdorwv[address] [place], [place] [address]Dr. Yilan ChangEpithelial cells LM Ql (Urine sed)RARE NormalNONE SEEN /RAREHocking Valley Community HospitalComment on above:Performed By: #### UAMIC ####[facility] Jdvhjmslad075[address] [place], [place] [address]Dr. Yilan ChangGlucose Ql (U)NegativeNormalNEGOhio Valley Surgical Hospital Comment on above:Performed By: #### UAMIC ####[facility] Wkepykffab3932[address] [place], [place] [address]Dr. Yilan ChangHemoglobin Ql (U)Negative NormalNEGATIVEHocking Valley Community HospitalComment on above:Performed By: #### UAMIC ####[facility] Kckbudzckf[address] [place], [place] [address]Dr. Yilan ChangKetones Ql (U)NegativeNormalNEGATIVEHocking Valley Community HospitalComment on above:Performed By: #### UAMIC ####[facility] Liwyafiokw552[address] [place], [place] [address]Dr. Yilan ChangLEUKOCYTESNegativeNormalNEGATIVEHocking Valley Community HospitalComment on above:Performed By: #### UAMIC ####[facility] Horfflnruo4057[address] [place], [place] [address]Dr. Yilan ChangMUCOUSNONE SEENNormalNONE SEENHocking Valley Community HospitalComment on above:Performed By: #### UAMIC ####[facility] Ccdkkiuumm3413[address] [place], [place] [address]Dr. Yilan ChangNitrite Ql (U)NegativeNormalNEGATIVEHocking Valley Community Hospital Comment on above:Performed By: #### UAMIC ####[facility] Bstszfhucs46[address] [place] [address]Dr. Airam ChangpH (U)7.0 [pH]Normal5-9The [facility] CenterComment on above:Performed By: #### UAMIC ####[facility] Fdseyrijtl8468[address] [place], [place] [address]Dr. Airam ChangRBC0-2Normal 0-2The [facility] CenterComment on above:Performed By: #### UAMIC ####[facility] Qrhmmmxzka5380[address] [place], [place] [address]Dr. Selenalan ChangSPEC GRAVITY1.508Fiuhmq5.005-<=1.025The [facility] CenterComment on above:Performed By: #### UAMIC ####[facility] Etmkpegnwf9312[address] [place], [place] [address]Dr. Yilan ChangUA PROTEINNegativeNormalNEGATIVE/ TRACEThe [facility] CenterComment on above:Performed By: #### UAMIC ####[facility] Khvoraabmk3950[address] [place], [place] [address]Dr. Yilan DeuceUrobilinogen Qn (U)0.2 {Ligia'U}/dLNormal0.2 - 1.0The [facility] CenterComtr[facility] on above: Performed By: #### UAMIC ####[facility] Cvogvwhglo6668[address] [place], [place] [address]Dr. Yilan ChangWBCNONE SEENNormalNONE SEENThe [facility] CenterComment on above:Performed By: #### UAMIC ####[facility] Qibgwccxiq313[address] [place], [place] [address]Dr. Yilan ChangXR CHEST 1 Von 72-50-3242OG CHEST 1 VNormalThe [facility] AUTO DIFFon 69-33-7846SOKR #0.0 103/ulNormal0.0-0.1The [facility] CenterComtr[facility] health [facility] on above:Performed By: #### CBC ####[facility] Hmlqafiygu635[address] [place], [place] [address]Dr.Yilan ChangBasophils/100 WBC (Bld)0.5 %Normal0.2-2.0The [facility] CenterComment on above:Performed By: #### CBC ####[facility] Upcseyqwoh8311[address] [place], [place] [address]Dr.Airam ChangEO #0.3 103/ul Normal0.0-0.7The [facility] CenterComment on above:Performed By: #### CBC ####[facility] Evwmwhldhv0507[address] [place], [place] [address]Dr. Airam ChangEosinophils/100 WBC (Bld)3.3 %Normal0.9-7.0The [facility] Comment on above:Performed By: #### CBC ####[facility] Tnubntlujp9695[address] [place], [place] [address]Dr.Airam ChangErythrocyte distribution width (RBC) [Ratio]15.0 %Odizre05.0-15.0The [facility] CenterComment on above: Performed By: #### CBC ####[facility] Nyntfcnlsd5394[address] [place], [place] [address]Dr.Airam ChangHematocrit (Bld) [Volume fraction]32.9 % Critically low36.0-48.0The [facility] CenterComment on above:Performed By: #### CBC ####[facility] Tmreuflwpy6320[address] [place], [place] [address]Dr. Airam ChangHemoglobin (Bld) [Mass/Vol]10.1 g/dLCritically low12.0-16.0The [facility] CenterComment on above:Performed By: #### CBC ####[facility] Waoqbizgzm1835[address] [place], [place] [address]Dr.Airam ChangIG #0.04 10e3/ulCritically high0.00-0.03The [facility] CenterComment on above:Performed By: #### CBC ####[facility] Cytyzaejgp163[address] [place], [place] [address]Dr.Airam ChangIG %0.5 %Normal0.0-0.5The [facility] CenterComment on above: Performed By: #### CBC ####[facility] Lglycqumyx4898[address] [place], [place] [address]Dr.Airam TripathiLYMPH #1.5 103/ulNormal1.2-3.8The [facility] CenterComment on above:Performed By: #### CBC ####[facility] Fphiceapch8[address] [place] [address]Dr.Airam TripathiLymphocytes/100 WBC (Bld)18.1 %Critically low20.5-60.0The [facility] CenterComment on above: Performed By: #### CBC ####[facility] Zriuzyyiaa[address] [place] [address]Dr.Airam TripathiMANUAL DIFF REQNONormalThe [facility] CenterComment on above:Performed By: #### CBC ####[facility] Blmkdjnrya1[address] [place], [place] [address]Dr.Airam TripathiMCH (RBC) [Entitic mass]28.3 xoHirffm59.7-34.0The [facility] CenterComment on above: Performed By: #### CBC ####[facility] Reuoksbcdo[address] [place], [place] [address]Dr.Airam TripathiMCHC (RBC) [Mass/Vol]30.7 g/dLNormal 29.9-35.2The [facility] CenterComment on above:Performed By: #### CBC ####[facility] Hdgwyncpeo656[address] [place], [place] [address]Dr. Airam TripathiMCV (RBC) [Entitic vol]92.2 jHAwyrko33.0-99.0The [facility] Comment on above:Performed By: #### CBC ####[facility] Msayitbkqy25[address] [place], [place] [address]Dr.Airam TripathiMONO #0.7 103/ulNormal0.3-0.8 The [facility] CenterComment on above:Performed By: #### CBC ####[facility] Cceorccqqa7[address] [place], [place] [address]Dr.Airam Tripathi Monocytes/100 WBC (Bld)7.7 %Normal1.7-12.0The [facility] CenterComment on above: Performed By: #### CBC ####[facility] Devecvawwe[address] [place] [address]Dr.Airam ChangNEUT #5.9 103/ulNormal1.4-6.5The [facility] CenterComment on above:Performed By: #### CBC ####[facility] Grnbubrpdv79[address] [place], [place] [address]Dr.Airam TripathiNeutrophils/100 WBC (Bld)69.9 %Xasdug34.0-75.0The [facility] CenterComment on above:Performed By: #### CBC ####[facility] Rhzwexenjx9[address] [place], [place] [address]Dr.Airam TripathiPlatelet mean volume (Bld) [Entitic vol]9.3 fLCritically low 9.5-13.5The [facility] CenterComment on above:Performed By: #### CBC ####[facility] Kfglnuzgls[address] [place], [place] [address]Dr. Airam QfubxVGH350 103/dmPunhzk371-798Pkm [facility] CenterComment on above: Performed By: #### CBC ####[facility] Qvcqhxvcfn[address] [place], [place] [address]Dr.Selenaneil ChangRBC3.57 106/ulCritically low4.20-5.40The [facility] CenterComment on above:Performed By: #### CBC ####[facility] Btiwzvqrys[address] [place], [place] [address]Dr.Airam ChangWBC8.4 103/ul Normal4.0-11.0The [facility] CenterComment on above:Performed By: #### CBC ####[facility] Bzurdizako60[address] [place], [place] [address]Dr. Selenaneil ChangPROF 14(COMP METB)on 24-60-2983Yovdemr [Mass/Vol]3.1 g/dLCritically low3.4-5.0The [facility] CenterComment on above:Performed By: #### CMP ####[facility] Dcmfsgihgp4684[address] [place], [place] [address]Dr. Airam TripathiAlbumin/Globulin [Mass ratio]0.9 {ratio}NormalThe [facility] Comment on above:Performed By: #### CMP ####[facility] [address] [place] [address]Dr.Yilan ChangALP [Catalytic activity/Vol] 117 U/LCritically kizu29-675Dps [facility] CenterComment on above:Performed By: #### CMP ####[facility] Iv[address]zd[address]ev[address] [place] [address]Dr.Yilan ChangALT [Catalytic activity/Vol]24 U/DKcwqyu32-61Vyu [facility] CenterComment on above:Performed By: #### CMP ####[facility] Ebkvggcmhr4425[address] [place], [place] [address]Dr.Yilan ChangAnion gap [Moles/Vol]11.1 mmol/LNormalThe [facility] CenterComment on above:Performed By: #### CMP ####[facility] Jqopiznglt[address] [place], [place] [address]Dr.Yilan ChangAST [Catalytic activity/Vol]22 U/UJjekhc50-55Zkz [facility] CenterComment on above:Performed By: #### CMP ####[facility] Qmyqwuqxfn[address] [place], [place] [address]Dr.Yilan ChangBilirubin [Mass/Vol]0.2 mg/dLNormal0.2-1.0The [facility] CenterComment on above:Performed By: #### CMP ####[facility] Ofmtqvddeq445[address] [place], [place] [address]Dr.Yilan ChangCalcium [Mass/Vol]8.4 mg/dLCritically low8.5-10.1The [facility] CenterComment on above:Performed By: #### CMP ####[facility] Affetfvgxo9734[address] [place], [place] [address]Dr.Yilan ChangChloride [Moles/Vol]103 mmol/PPtndeu79-195Ijf [facility] CenterComment on above:Performed By: #### CMP ####[facility] Pgighgcslh3579[address] [place], [place] [address]Dr.Yilan ChangCO2 [Moles/Vol]25.0 mmol/FUaomkd31.0-32.0The [facility] CenterComment on above:Performed By: #### CMP ####[facility] [address] [place] [id number].Yilan ChangCreatinine [Mass/Vol]1.27 mg/dLCritically high0.55-1.02The [facility] CenterComment on above:Performed By: #### CMP ####[facility] Dfziyebqhz5[address] [place] [id number].Yilan ChangEGFR-AF NGSYMDMB40 mL/min/1.73m2 Critically low>=60The [facility] CenterComment on above:Performed By: #### CMP ####[facility] Efcskecbya[address] [place] [address]Dr. Yilan ChangEGFR-NON AF BENETLUU72 mL/min/1.17j4Ztbokdtdch low>=60The [facility] CenterComment on above:Performed By: #### CMP ####[facility] Enxhfykegg7637[address] [place], [place] [address]Dr.Yilan ChangGlobulin (S) [Mass/Vol]3.3 g/dLNormalThe [facility] CenterComment on above:Performed By: #### CMP ####[facility] Xvdomxjmac9947[address] [place], [place] [address]Dr.Yilan ChangGlucose [Mass/Vol]90 mg/dDQvirsx86-449Sos [facility] Comment on above:Performed By: #### CMP ####[facility] Kqjhmruhwj25[address] [place], [place] [address]Dr.Yilan ChangPotassium [Moles/Vol]5.1 mmol/LNormal3.5-5.1The [facility] CenterComment on above:Performed By: #### CMP ####[facility] Yveorhaahs[address] [place], [place] [id number]. Yilan ChangProtein [Mass/Vol]6.4 g/dLNormal6.4-8.2The [facility] CenterComment on above:Performed By: #### CMP ####[facility] Eqvfkyuepo88[address] [place], [place] [address]Dr.Yilan ChangSodium [Moles/Vol]134 mmol/LCritically rfn758-418Nsy [facility] CenterComment on above:Performed By: #### CMP ####[facility] Wvlwmrhlvn2235[address] [place], [place] [address]Dr. Airam ChangUrea nitrogen [Mass/Vol]33.0 mg/dLCritically high7.0-18.0The [facility] CenterComment on above:Performed By: #### CMP ####[facility] Ndcdafgcqy6725[address] [place], [place] [address]Dr.Airam ChangUrea nitrogen/Creatinine [Mass ratio]26.0 mg/mgNormalThe [facility] CenterComment on above:Performed By: #### CMP ####[facility] Pymbonjmfo7377[address] [place], [place] [address]Dr.Selenaneil ChangOSMOLALITYon 25-31-6872Zpmxavcqaw [Osmolality]272 mosm/kgCritically dct955-207Imc [facility] CenterComment on above:Performed By: #### OSMO ####[facility] Pxwsesasuf0930[address] [place], [place] [address]Dr. Airam ChangBNPon 73-44-3658Hyiffojfutk peptide B (Bld) [Mass/Vol]1337.0 pg/mLCritically high<=900.0The [facility] on above:Performed By: #### BNP ####[facility] Fpyeevcuex004[address] [place], [place] [address]Dr.Airam TripathiCBC AUTO DIFFon 58-48-2885SQMA #0.0 103/ulNormal0.0-0.1The [facility] on above:Performed By: #### CBC ####[facility] Tndtrfenbm364[address] [place], [place] [address]Dr. Selenaneil DeuceBasophils/100 WBC (Bld)0.6 %Normal0.2-2.0The [facility] on above:Performed By: #### CBC ####[facility] Lljskaytkw9624[address] [place], [place] [address]Dr.Airam ChangEO #0.2 103/ulNormal0.0-0.7The [facility] CenterComment on above:Performed By: #### CBC ####[facility] Cnzjznrtfe7010[address] [place], [place] [address]Dr.Yilan ChangEosinophils/100 WBC (Bld)2.3 %Normal0.9-7.0The [facility] CenterComment on above:Performed By: #### CBC ####[facility] Nfcojzonuy6668[address] [place], [place] [address]Dr.Yilan ChangErythrocyte distribution width (RBC) [Ratio]15.1 %Critically high11.0-15.0The [facility] HospitalComment on above:Performed By: #### CBC ####[facility] Ihbtxdkqen5417[address] [place], [place] [address]Dr. Yilan ChangHematocrit (Bld) [Volume fraction]35.9 %Critically low36.0-48.0The [facility] CenterComment on above:Performed By: #### CBC ####[facility] Flraahqfny5456[address] [place], [place] [address]Dr.Airam ChangHemoglobin (Bld) [Mass/Vol]11.4 g/dLCritically low12.0-16.0The [facility] CenterComment on above:Performed By: #### CBC ####[facility] Hjbbnhhvvd126[address] [place], [place] [address]Dr.Yilan ChangIG #0.03 10e3/ulNormal0.00-0.03The [facility] CenterComment on above:Performed By: #### CBC ####[facility] Uffktsjfdo6035[address] [place], [place] [address]Dr.Yilan ChangIG %0.5 %Normal 0.0-0.5The [facility] CenterComment on above:Performed By: #### CBC ####[facility] Ytokuhkman[address] [place], [place] [address]Dr.Yilan ChangLYMPH #1.1 103/ulCritically low1.2-3.8The [facility] CenterComment on above:Performed By: #### CBC ####[facility] Rsbxmluixr723[address] [place], [place] [address]Dr.Yilan ChangLymphocytes/100 WBC (Bld)17.2 %Critically low20.5-60.0 [facility] HospitalComment on above:Performed By: #### CBC ####[facility] [address] [place] [address]DrKiannaSelenaneil TripathiMANUAL DIFF REQNONormalThe [facility] CenterComment on above:Performed By: #### CBC ####[facility] Jxzvrvukpt350[address] [place], [place] [address]Dr. Selenaneil TripathiH (RBC) [Entitic mass]28.8 fyIsntpy31.7-34.0The [facility] Comment on above:Performed By: #### CBC ####[facility] Jbymiuicfo289[address] [place], [place] [address]DrKiannaSelenaneil TripathiHC (RBC) [Mass/Vol]31.8 g/dL Dlajev97.9-35.2The [facility] CenterComment on above:Performed By: #### CBC ####[facility] Kdkfhtvpgj4698[address] [place], [place] [address]Dr. Airam TripathiV (RBC) [Entitic vol]90.7 xFCtvbsq20.0-99.0[facility] Comment on above:Performed By: #### CBC ####[facility] Eowfipckno6147[address] [place], [place] [address]DrBroderick CandelarioO #0.5 103/ulNormal0.3-0.8 [facility] HospitalComment on above:Performed By: #### CBC ####[facility] Cmqlxodpxv9537[address] [place], [place] [address]DrKiannaSelenaneil Tripathi Monocytes/100 WBC (Bld)7.7 %Normal1.7-12.0The [facility] CenterComment on above: Performed By: #### CBC ####[facility] Sgnchzxhwc2540[address] [place], [place] [address]DrBroderick TripathiNEUT #4.7 103/ulNormal1.4-6.5The [facility] CenterComment on above:Performed By: #### CBC ####[facility] Pwhhycbrrr9[address] [place], [place] [address]Dr.Yilan ChangNeutrophils/100 WBC (Bld)71.7 %Nmkkdv73.0-75.0The [facility] CenterComment on above:Performed By: #### CBC ####[facility] Ttxofotvab2967[address] [place], [place] [address]Dr.Airam TripathiPlatelet mean volume (Bld) [Entitic vol]8.2 fLCritically low 9.5-13.5The [facility] CenterComment on above:Performed By: #### CBC ####[facility] Ewejzczpzi8459[address] [place], [place] [address]Dr. Airam EflkgWKQ788 103/aaCxboel620-927Ppc [facility] CenterComment on above: Performed By: #### CBC ####[facility] Clxeiojmvk786[address] [place], [place] [address]Dr.Airam ChangRBC3.96 106/ulCritically low4.20-5.40The [facility] CenterComment on above:Performed By: #### CBC ####[facility] Ymsmccolje477[address] [place], [place] [address]Dr.Airam TripathiWBC6.6 103/ul Normal4.0-11.0The [facility] CenterComment on above:Performed By: #### CBC ####[facility] Doqkwhxrre389[address] [place], [place] [address]Dr. Airam ChangPROF 14(COMP METB)on 52-38-5844Fznhmsg [Mass/Vol]3.3 g/dLCritically low3.4-5.0The [facility] CenterComment on above:Performed By: #### CMP ####[facility] Evdpyiuxhy2490[address] [place], [place] [address]Dr. Airam TripathiAlbumin/Globulin [Mass ratio]0.9 {ratio}NormalThe [facility] Comment on above:Performed By: #### CMP ####[facility] Lpvmluhcir[address] [place], [place] [address]Dr.Airam TripathiALP [Catalytic activity/Vol] 130 U/LCritically jbhx59-183Jih [facility] CenterComment on above:Performed By: #### CMP ####[facility] [address]yl[address]rlh[address] [place] [address]Dr.Yilan ChangALT [Catalytic activity/Vol]23 U/YYdmnjk27-70Oeo [facility] CenterComment on above:Performed By: #### CMP ####[facility] Enolzngvtt0316[address] [place], [place] [address]Dr.Yilan ChangAnion gap [Moles/Vol]11.7 mmol/LNormalThe [facility] CenterComment on above:Performed By: #### CMP ####[facility] Cnbgwxkrks8226[address] [place], [place] [address]Dr.Yilan ChangAST [Catalytic activity/Vol]23 U/SUkgprn89-74Ias [facility] CenterComment on above:Performed By: #### CMP ####[facility] Ohkpngjeev3899[address] [place], [place] [address]Dr.Yilan ChangBilirubin [Mass/Vol]0.3 mg/dLNormal0.2-1.0The [facility] CenterComment on above:Performed By: #### CMP ####[facility] Aapxehbbct4225[address] [place], [place] [address]Dr.Yilan ChangCalcium [Mass/Vol]8.7 mg/dLNormal8.5-10.1The [facility] CenterComment on above:Performed By: #### CMP ####[facility] Yyfgngddlv1889[address] [place], [place] [address]Dr.Yilan ChangChloride [Moles/Vol]99 mmol/WZjyupd52-251Hei [facility] CenterComment on above:Performed By: #### CMP ####[facility] Grjruxsshp939[address] [place], [place] [address]Dr.Yilan ChangCO2 [Moles/Vol]28.5 mmol/SPkidms35.0-32.0The [facility] CenterComment on above:Performed By: #### CMP ####[facility] Sivzayrhla114[address] [place], [place] [address]Dr.Yilan ChangCreatinine [Mass/Vol]1.06 mg/dLCritically high0.55-1.02The [facility] CenterComment on above:Performed By: #### CMP ####[facility] Druznjqynj[address] [place] [id number].Yilan ChangEGFR-AF YEMENI>60Normal>=60The [facility] CenterComtr[facility] on above:Performed By: #### CMP ####[facility] Nzndxcyvdf4837[address] [place], [place] [address]Dr.Yilan ChangEGFR-NON AF VPROYFYV43 mL/min/1.51q1Gqfcymoobf low>=60The [facility] CenterComment on above: Performed By: #### CMP ####[facility] Wnmcrmvkzx033[address] [place], [place] [address]Dr.Yilan ChangGlobulin (S) [Mass/Vol]3.5 g/dLNormalThe [facility] CenterComtr[facility] on above:Performed By: #### CMP ####[facility] Fiqcfzhnhx3545[address] [place], [place] [address]Dr.Yilan ChangGlucose [Mass/Vol]79 mg/hKVvfhkb52-425Bsw [facility] on above:Performed By: #### CMP ####[facility] Hvivwasxbf919[address] [place], [place] [address]Dr.Yilan ChangPotassium [Moles/Vol]4.2 mmol/LNormal3.5-5.1The [facility] CenterComtr[facility] on above:Performed By: #### CMP ####[facility] Pgsscgknxv418[address] [place], [place] [address]Dr.Yilan ChangProtein [Mass/Vol]6.8 g/dLNormal6.4-8.2The [facility] CenterComtr[facility] on above:Performed By: #### CMP ####[facility] Qrcvbnffyw3970[address] [place], [place] [address]Dr.Yilan ChangSodium [Moles/Vol]135 mmol/LCritically jep473-283Wrs [facility] on above:Performed By: #### CMP ####[facility] Pxccuyccwa1332[address] [place], [place] [address]Dr.Yilan ChangUrea nitrogen [Mass/Vol]16.0 mg/dLNormal7.0-18.0The [facility] Hospitalment on above: Performed By: #### CMP ####[facility] Kvgzzoyglz145[address] [place], [place] [address]Dr.Airam TripathiUrea nitrogen/Creatinine [Mass ratio] 15.1 mg/mgNoGlenbeigh HospitalComment on above:Performed By: #### CMP ####[facility] Rfekijsrfb8794[address] [place], [place] [address]Dr. Airam ChangXR CHEST 1 Von 57-55-4718KH CHEST 1 VNormalThe [facility] CenterPRBC LEUKOREDUCEDon 33-39-0853TZJN LEUKOREDUCEDFirelands Regional Medical CenterComment on above:Performed By: #### PRBC ####[facility] Nnjjqtkcev447[address] [place], [place] [address]Dr. Airam TripathiCULTURE URINEon 95-13-3601SNQMECT URINE NormalThe [facility] CenterComment on above:Performed By: #### URCX ####[facility] Ateqjubazx7985[address] [place], [place] [address]Dr. Airam Tripathi OSMOLALITYon 36-42-5287Qiavoyvyar [Osmolality]282 mosm/jdLroyls614-877Eru [facility] CenterComment on above:Performed By: #### OSMO ####[facility] Dumatwybgs[address] [place], [place] [address]Dr. Airam TripathiCBC AUTO DIFF on 94-09-5881HNMY #0.0 103/ulNormal0.0-0.1[facility] HospitalComtr[facility] on above: Performed By: #### CBC ####[facility] Busmrlnfal5245[address] [place], [place] [address]Dr.Airam TripathiBasophils/100 WBC (Bld)0.3 %Normal 0.2-2.0[facility] HospitalComment on above:Performed By: #### CBC ####[facility] Njkwyafced0590[address] [place], [place] [address]Dr.Airam ChangEO # 0.2 103/ulNormal0.0-0.7The [facility] CenterComtr[facility] on above:Performed By: #### CBC ####[facility] Uxnvmsdspg33[address] [place], [place] [address]Dr. Airam ChangEosinophils/100 WBC (Bld)3.4 %Normal0.9-7.0The [facility] Comment on above:Performed By: #### CBC ####[facility] Tufpgfawoi[address] [place] [address]Dr.Airam ChangErythrocyte distribution width (RBC) [Ratio]15.2 %Critically high11.0-15.0The [facility] CenterComment on above:Performed By: #### CBC ####[facility] Uscdpbxitk[address] [place] [address]Dr.Selenalan ChangHematocrit (Bld) [Volume fraction]31.3 % Critically low36.0-48.0The [facility] CenterComment on above:Performed By: #### CBC ####[facility] Gnnrpjctpu58[address] [place] [address]Dr. Airam ChangHemoglobin (Bld) [Mass/Vol]9.9 g/dLCritically low12.0-16.0The [facility] CenterComment on above:Performed By: #### CBC ####[facility] Ljvtmjmbeh[address] [place], [place] [address]Dr.Yilan ChangIG #0.03 10e3/ulNormal0.00-0.03The [facility] CenterComment on above:Performed By: #### CBC ####[facility] Jxnvxfimvf9[address] [place] [address]Dr. Airam ChangIG %0.4 %Normal0.0-0.5The [facility] CenterComment on above:Performed By: #### CBC ####[facility] Rhwwrtgfsk[address] [place], [place] [address]Dr.Yilan ChangLYMPH #1.3 103/ulNormal1.2-3.8The [facility] Comment on above:Performed By: #### CBC ####[facility] Dontxsgjdp1177[address] [place], [place] [address]Dr.Yilan ChangLymphocytes/100 WBC (Bld)19.0 %Critically low20.5-60.0The [facility] HospitalComment on above:Performed By: #### CBC ####[facility] Q[address]iipevns[address] [place] [address]Dr.Airam TripathiMANUAL DIFF REQNONormalThe [facility] CenterComment on above: Performed By: #### CBC ####[facility] Xymgxoaznx8288[address] [place], [place] [address]Dr.Airam TripathiH (RBC) [Entitic mass]28.1 pgNormal 26.7-34.0The [facility] HospitalComment on above:Performed By: #### CBC ####[facility] Jjgqajsylu6911[address] [place], [place] [address]Dr. Airam TripathiHC (RBC) [Mass/Vol]31.6 g/yLVqgteo16.9-35.2The [facility] Comment on above:Performed By: #### CBC ####[facility] Ryuhxhgdjv413[address] [place], [place] [address]Dr.Airam TripathiV (RBC) [Entitic vol]88.9 fL Jpwzph76.0-99.0The [facility] CenterComment on above:Performed By: #### CBC ####[facility] Fdcgqefsdc664[address] [place], [place] [address]Dr. Airam DeuceMONO #0.6 103/ulNormal0.3-0.8The [facility] CenterComment on above: Performed By: #### CBC ####[facility] Xmreuzcmod378[address] [place], [place] [address]Dr.Airam ChangMonocytes/100 WBC (Bld)9.0 %Normal 1.7-12.0The [facility] CenterComment on above:Performed By: #### CBC ####[facility] Rtolovuawh615[address] [place], [place] [address]Dr. Airam DeuceNEUT #4.5 103/ulNormal1.4-6.5The [facility] CenterComment on above: Performed By: #### CBC ####[facility] Lsllkrkznh5474[address] [place], [place] [address]Dr.Selenaneil TripathiNeutrophils/100 WBC (Bld)67.9 %Normal 43.0-75.0The [facility] CenterComment on above:Performed By: #### CBC ####[facility] Iafvxvhfyo8334[address] [place], [place] [address]Dr. Selenaneil DeucePlatelet mean volume (Bld) [Entitic vol]9.1 fLCritically low9.5-13.5 The [facility] CenterComment on above:Performed By: #### CBC ####[facility] Vfnxsispmi5130[address] [place], [place] [address]Dr.Airam TripathiPLT256 103/jrNnlqbn282-106Gbs [facility] CenterComment on above:Performed By: #### CBC ####[facility] Gnmyuxzlww4554[address] [place], [place] [address]Dr. Airam TripathiRBC3.52 106/ulCritically low4.20-5.40The [facility] CenterComment on above:Performed By: #### CBC ####[facility] Gavognslyo7355[address] [place], [place] [address]Dr.Airam TripathiWBC6.7 103/ulNormal4.0-11.0The [facility] CenterComment on above:Performed By: #### CBC ####[facility] Wusbpblxxm1245[address] [place], [place] [address]Dr.Airam TripathiPROF 14(COMP METB)on 06-27-7897Sspejox [Mass/Vol]2.8 g/dLCritically low3.4-5.0The [facility] CenterComment on above:Performed By: #### CMP ####[facility] Eybenoqysl909[address] [place], [place] [address]Dr.Airam Tripathi Albumin/Globulin [Mass ratio]0.9 {ratio}NormalThe [facility] CenterComment on above:Performed By: #### CMP ####[facility] Nikaqejjno5217[address] [place], [place] [address]Dr.Airam TripathiALP [Catalytic activity/Vol]118 U/L Critically iaej96-525Rci [facility] CenterComment on above:Performed By: #### CMP ####[facility] Sqytjmetmp8090[address] [place], [place] [address]Dr. Yilan ChangALT [Catalytic activity/Vol]23 U/LSpzvuq44-57Mfv [facility] Comment on above:Performed By: #### CMP ####[facility] Lubbvphdwb6498[address] [place], [place] [address]Dr.Yineil ChangAnion gap [Moles/Vol]12.5 mmol/LNormalThe [facility] CenterComment on above:Performed By: #### CMP ####[facility] Epvahicisc3544[address] [place], [place] [address]Dr. Yilan ChangAST [Catalytic activity/Vol]21 U/LFjljeg92-72Oxs [facility] Comment on above:Performed By: #### CMP ####[facility] Qqwbevaoav050[address] [place], [place] [address]Dr.Yilan ChangBilirubin [Mass/Vol]0.4 mg/dL Normal0.2-1.0The [facility] CenterComment on above:Performed By: #### CMP ####[facility] Vhegsrfhsw8312[address] [place], [place] [address]Dr. Yilan ChangCalcium [Mass/Vol]8.2 mg/dLCritically low8.5-10.1The [facility] CenterComment on above:Performed By: #### CMP ####[facility] Xaihkiklwd6868[address] [place], [place] [address]Dr.Yilan ChangChloride [Moles/Vol]99 mmol/JTvjhkf11-121Ust [facility] CenterComment on above:Performed By: #### CMP ####[facility] Pruwiqfgbr[address] [place], [place] [address]Dr.Yilan ChangCO2 [Moles/Vol]24.9 mmol/JJwveeh04.0-32.0The [facility] CenterComment on above:Performed By: #### CMP ####[facility] Wzeffbyjyd04[address] [place], [place] [address]Dr.Yilan ChangCreatinine [Mass/Vol]1.61 mg/dLCritically high0.55-1.02The [facility] CenterComment on above:Performed By: #### CMP ####[facility] Fzjqnrugav4260[address] [place], [place] [address]Dr.Yilan ChangEGFR-AF PEGSIUYH70 mL/min/1.73m2 Critically low>=60The [facility] CenterComment on above:Performed By: #### CMP ####[facility] Ndsjnpetyu9595[address] [place], [place] [address]Dr. Airam ChangEGFR-NON AF EPKGWMIF48 mL/min/1.40n7Jbqobibhar low>=60The [facility] CenterComment on above:Performed By: #### CMP ####[facility] Plgwtrlfus9[address] [place], [place] [address]Dr.Selenaneil DeuceGlobulin (S) [Mass/Vol]3.2 g/dLNormalThe [facility] CenterComment on above:Performed By: #### CMP ####[facility] Bhcsdqszty36[address] [place], [place] [address]Dr.Airam TripathiGlucose [Mass/Vol]67 mg/dLCritically ukw48-902Dha [facility] CenterComment on above:Performed By: #### CMP ####[facility] Myqvjzulmf[address] [place], [place] [address]Dr.Airam TripathiPotassium [Moles/Vol]5.4 mmol/LCritically high3.5-5.1The [facility] CenterComment on above:Performed By: #### CMP ####[facility] Dlayljtazn[address] [place], [place] [address]Dr.Airam TripathiProtein [Mass/Vol]6.0 g/dLCritically low 6.4-8.2The [facility] CenterComment on above:Performed By: #### CMP ####[facility] Vfgshtkheh5[address] [place], [place] [address]Dr.Airam Tripathi Sodium [Moles/Vol]131 mmol/LCritically tyl902-263Wxp [facility] CenterComment on above:Performed By: #### CMP ####[facility] Fjopblkgjw[address] [place], [place] [address]Dr.Airam TripathiUrea nitrogen [Mass/Vol]43.0 mg/dL Critically high7.0-18.0The [facility] CenterComment on above:Performed By: #### CMP ####[facility] Mjoewuwmti[address] [place], [place] [address]Dr. Yilan ChangUrea nitrogen/Creatinine [Mass ratio]26.7 mg/mgNormalThe [facility] CenterComment on above:Performed By: #### CMP ####[facility] Tggkqqovey16[address] [place], [place] [address]Dr.Yilan ChangCBC AUTO DIFFon [id number] #0.0 103/ulNormal0.0-0.1The [facility] CenterComment on above: Performed By: #### CBC ####[facility] Ihuewqxdjl4079[address] [place], [place] [address]Dr.Yilan ChangBasophils/100 WBC (Bld)0.3 %Normal 0.2-2.0The [facility] CenterComment on above:Performed By: #### CBC ####[facility] Ustxchdhkb039[address] [place], [place] [address]Dr.Yilan ChangEO # 0.2 103/ulNormal0.0-0.7The [facility] CenterComment on above:Performed By: #### CBC ####[facility] Bzhamckcth[address] [place], [place] [address]Dr. Yilan ChangEosinophils/100 WBC (Bld)3.1 %Normal0.9-7.0The [facility] Comment on above:Performed By: #### CBC ####[facility] Njhiizxcbm17[address] [place], [place] [address]Dr.Yilan ChangErythrocyte distribution width (RBC) [Ratio]15.0 %Yefkfu84.0-15.0The [facility] CenterComment on above: Performed By: #### CBC ####[facility] Meffsodblu[address] [place], [place] [address]Dr.Selenalan ChangHematocrit (Bld) [Volume fraction]30.9 % Critically low36.0-48.0The [facility] CenterComment on above:Performed By: #### CBC ####[facility] Xlljjqjsho05[address] [place], [place] [address]Dr. Selenalan ChangHemoglobin (Bld) [Mass/Vol]10.1 g/dLCritically low12.0-16.0The [facility] CenterComment on above:Result Comment: PATIENT RECIEVED 2 UNITS PRBC'SPerformed By: #### CBC ####[facility] Xkwoxywtsz[address] [place], [place] [address]Dr.Airam TripathiIG #0.03 10e3/ulNormal0.00-0.03The [facility] CenterComment on above:Performed By: #### CBC ####[facility] Rztkepzqte5[address] [place], [place] [address]Dr.Airam TripathiIG %0.4 %Normal 0.0-0.5The [facility] HospitalComment on above:Performed By: #### CBC ####[facility] Gqqrvizqgc[address] [place], [place] [address]Dr.Airam DossH #1.1 103/ulCritically low1.2-3.8The [facility] CenterComment on above:Performed By: #### CBC ####[facility] Tvlcbyghnk9212[address] [place], [place] [address]Dr.Airam Dosshocytes/100 WBC (Bld)14.4 %Critically low20.5-60.0 The [facility] CenterComment on above:Performed By: #### CBC ####[facility] Xglsdfuegz9187[address] [place], [place] [address]Dr.Airam TripathiMANUAL DIFF REQNONormalThe [facility] CenterComment on above:Performed By: #### CBC ####[facility] Xvqteadkwr394[address] [place], [place] [address]Dr. Airam TripathiMEDISYS HEALTH NETWORK (RBC) [Entitic mass]28.9 ljQawwse25.7-34.0The [facility] Comment on above:Performed By: #### CBC ####[facility] Atcszwagcy675[address] [place], [place] [address]Dr.Airam TripathiHC (RBC) [Mass/Vol]32.7 g/dL Jekshu12.9-35.2The [facility] CenterComment on above:Performed By: #### CBC ####[facility] Peojrqzlvf4365[address] [place], [place] [address]Dr. Airam TripathiMCV (RBC) [Entitic vol]88.3 oCUdtkzw81.0-99.0The [facility] Comment on above:Performed By: #### CBC ####[facility] Cksbkznxwo4075[address] [place], [place] [address]Dr.Airam TripathiMONO #0.6 103/ulNormal0.3-0.8 The [facility] CenterComment on above:Performed By: #### CBC ####[facility] Hcgjljwwob4739[address] [place], [place] [address]Dr.Airam Tripathi Monocytes/100 WBC (Bld)7.8 %Normal1.7-12.0The [facility] CenterComment on above: Performed By: #### CBC ####[facility] Dcfbsceetz67[address] [place], [place] [address]Dr.Airam TripathiNEUT #5.5 103/ulNormal1.4-6.5The [facility] CenterComment on above:Performed By: #### CBC ####[facility] Vcvvedpsos0412[address] [place], [place] [address]Dr.Airam TripathiNeutrophils/100 WBC (Bld)74.0 %Oadvgd25.0-75.0The [facility] CenterComment on above:Performed By: #### CBC ####[facility] Ncyhrsyjxr122[address] [place], [place] [address]Dr.Airam TripathiPlatelet mean volume (Bld) [Entitic vol]9.2 fLCritically low 9.5-13.5The [facility] CenterComment on above:Performed By: #### CBC ####[facility] Kqdfbrflby9288[address] [place], [place] [address]Dr. Airam TripathiPLT275 103/dwLggqft900-022Yhu [facility] CenterComment on above: Performed By: #### CBC ####[facility] Ixbgdnpwbr8269[address] [place], [place] [address]Dr.Airam TripathiRBC3.50 106/ulCritically low4.20-5.40The [facility] CenterComment on above:Performed By: #### CBC ####[facility] Glkvgenvyl7[address] [place], [place] [address]Dr.Yilan ChangWBC7.4 103/ul Normal4.0-11.0The [facility] CenterComment on above:Performed By: #### CBC ####[facility] [address] [place] [address]Dr. Yilan ChangBASO #0.0 103/ulNormal0.0-0.1The [facility] CenterComment on above: Performed By: #### CBC ####[facility] Ngpyxplawr644[address] [place], [place] [address]Dr.Yilan ChangBasophils/100 WBC (Bld)0.4 %Normal 0.2-2.0The [facility] CenterComment on above:Performed By: #### CBC ####[facility] Lzhmpvtlbd6705[address] [place], [place] [address]Dr.Yilan ChangEO # 0.2 103/ulNormal0.0-0.7The [facility] CenterComment on above:Performed By: #### CBC ####[facility] Iypngrqzfv6539[address] [place], [place] [address]Dr. Yilan ChangEosinophils/100 WBC (Bld)4.5 %Normal0.9-7.0The [facility] Comment on above:Performed By: #### CBC ####[facility] Gcilbgfgvw18[address] [place], [place] [address]Dr.Selenalan ChangErythrocyte distribution width (RBC) [Ratio]15.1 %Critically high11.0-15.0The [facility] CenterComment on above:Performed By: #### CBC ####[facility] Kkyszjklpw2226[address] [place], [place] [address]Dr.Selenalan ChangHematocrit (Bld) [Volume fraction]23.0 % Critically low36.0-48.0The [facility] CenterComment on above:Performed By: #### CBC ####[facility] Cxkwajiifg3417[address] [place], [place] [address]Dr. Airam ChangHemoglobin (Bld) [Mass/Vol]7.2 g/dLCritically low12.0-16.0The [facility] CenterComment on above:Performed By: #### CBC ####[facility] [address] [place] [address]Dr.Airam TripathiIG #0.02 10e3/ulNormal0.00-0.03The [facility] CenterComment on above:Performed By: #### CBC ####[facility] [address]nx[address]xndbwi[address] [place] [address]Dr. Airam ChangIG %0.4 %Normal0.0-0.5The [facility] CenterComment on above:Performed By: #### CBC ####[facility] Jepkajgmhj4476[address] [place], [place] [address]Dr.Airam DeuceLYMPH #1.0 103/ulCritically low1.2-3.8The [facility] CenterComment on above:Performed By: #### CBC ####[facility] Ltsogeoepq1474[address] [place], [place] [address]Dr.Selenaneil TripathiLymphocytes/100 WBC (Bld)22.5 %Rzvwyv89.5-60.0The [facility] Hospitalment on above:Performed By: #### CBC ####[facility] Dlerzyfrvy0779[address] [place], [place] [address]Dr.Airam TripathiMANUAL DIFF REQNONormalThe [facility] CenterComment on above:Performed By: #### CBC ####[facility] Jmxxlhkaot4578[address] [place], [place] [address]Dr.Airam TripathiH (RBC) [Entitic mass]28.3 pgNormal 26.7-34.0The [facility] CenterComment on above:Performed By: #### CBC ####[facility] Xvinurlyjz4850[address] [place], [place] [address]Dr. Airam TripathiMCHC (RBC) [Mass/Vol]31.3 g/gVFfgpez60.9-35.2The [facility] Comment on above:Performed By: #### CBC ####[facility] Ynzudvcycz0122[address] [place], [place] [address]Dr.Airam TripathiMCV (RBC) [Entitic vol]90.6 fL Wytbft95.0-99.0The [facility] HospitalComment on above:Performed By: #### CBC ####[facility] Lcepihkdjn373[address] [place], [place] [address]Dr. Airam TripathiMONO #0.5 103/ulNormal0.3-0.8The [facility] HospitalComment on above: Performed By: #### CBC ####[facility] Tgxrvjesyq4511[address] [place], [place] [address]Dr.Selenalan ChangMonocytes/100 WBC (Bld)9.7 %Normal 1.7-12.0The [facility] CenterComment on above:Performed By: #### CBC ####[facility] Ckpxxfzqzz827[address] [place], [place] [address]Dr. Airam TripathiNEUT #2.9 103/ulNormal1.4-6.5The [facility] CenterComment on above: Performed By: #### CBC ####[facility] Qrerfazgdg986[address] [place], [place] [address]Dr.Selenalan ChangNeutrophils/100 WBC (Bld)62.5 %Normal 43.0-75.0The [facility] HospitalComment on above:Performed By: #### CBC ####[facility] Xuimgljtcc6108[address] [place], [place] [address]Dr. Airam TripathiPlatelet mean volume (Bld) [Entitic vol]8.9 fLCritically low9.5-13.5 The [facility] CenterComment on above:Performed By: #### CBC ####[facility] Rpiosifyyy958[address] [place], [place] [address]Dr.Selenalan BbwntTUM947 103/klEmzkvy652-276Ihp [facility] HospitalComment on above:Performed By: #### CBC ####[facility] Srmftuskoh8229[address] [place], [place] [address]Dr. Selenalan ChangRBC2.54 106/ulCritically low4.20-5.40The [facility] CenterComment on above:Performed By: #### CBC ####[facility] Jqexjmhzkd3827[address] [place], [place] [address]Dr.Selenalan ChangWBC4.6 103/ulNormal4.0-11.0[facility] HospitalComment on above:Performed By: #### CBC ####[facility] [address] [place] [address]Dr.Airam ChangOSMOLALITYon 62-69-2531Sliukkijod [Osmolality]279 mosm/hrGecezy253-102LifHocking Valley Community Hospital Comment on above:Performed By: #### OSMO ####[facility] Poiefwdtja[address] [place], [place] [address]Dr. Airam ChangPOINT OF CARE GLUCOSEon 94-84-7247Jypedkk [Mass/Vol]72 mg/dLCritically qnk55-012CdkHocking Valley Community Hospital Comment on above:Performed By: #### POCGLUC ####[facility] Towzleygfm1200[address] [place], [place] [address]Dr. Airam ChangGlucose [Mass/Vol]102 mg/dL Ddpzcz32-241KijHocking Valley Community HospitalComment on above:Performed By: #### POCGLUC ####[facility] Zelucaaczm[address] [place], [place] [address]Dr. Airam ChangGlucose [Mass/Vol]165 mg/dLCritically etxc19-021JnpHocking Valley Community Hospital Comment on above:Performed By: #### POCGLUC ####[facility] Giticvtjjy596[address] [place], [place] [address]Dr. Airam ChangPROF 14(COMP METB)on 13-72-5712Xogtcfv [Mass/Vol]2.6 g/dLCritically low3.4-5.0[facility] Comment on above:Performed By: #### CMP ####[facility] Iqcekabffv8423[address] [place], [place] [address]Dr.Airam ChangAlbumin/Globulin [Mass ratio] 0.9 {ratio}NormalHocking Valley Community HospitalComment on above:Performed By: #### CMP ####[facility] Rmwsighwcs8720[address] [place], [place] [address]Dr. Airam ChangALP [Catalytic activity/Vol]107 U/UGbeuhq91-053AzqHocking Valley Community Hospital Comment on above:Performed By: #### CMP ####[facility] [address]ay[address]ccrex[address] [place] [address]Dr.Yilan ChangALT [Catalytic activity/Vol]22 U/WIloibz51-22Xou [facility] CenterComment on above:Performed By: #### CMP ####[facility] Pslmtonucc5522[address] [place], [place] [address]Dr. Yilan ChangAnion gap [Moles/Vol]10.0 mmol/LNormalThe [facility] CenterComment on above:Performed By: #### CMP ####[facility] Apgrmxubcm1399[address] [place], [place] [address]Dr.Yilan ChangAST [Catalytic activity/Vol]19 U/LNormal 15-37The [facility] CenterComment on above:Performed By: #### CMP ####[facility] Xdqnzjcxsr479[address] [place], [place] [address]Dr.Yilan Tripathi Bilirubin [Mass/Vol]0.2 mg/dLNormal0.2-1.0The [facility] CenterComment on above: Performed By: #### CMP ####[facility] Gxhivvcdqd3098[address] [place], [place] [address]Dr.Yilan ChangCalcium [Mass/Vol]8.1 mg/dLCritically low8.5-10.1The [facility] CenterComment on above:Performed By: #### CMP ####[facility] Twbaouiqzu2085[address] [place], [place] [address]Dr. Yilan ChangChloride [Moles/Vol]100 mmol/VBttxwa92-772Xzl [facility] Comment on above:Performed By: #### CMP ####[facility] Oeeoklrwqd029[address] [place], [place] [address]Dr.Yilan ChangCO2 [Moles/Vol]26.2 mmol/L Jcsutu34.0-32.0The [facility] CenterComment on above:Performed By: #### CMP ####[facility] Muufcpgswt1826[address] [place], [place] [address]Dr. Yilan ChangCreatinine [Mass/Vol]1.90 mg/dLCritically high0.55-1.02The [facility] CenterComment on above:Performed By: #### CMP ####[facility] [address]ubqa[address] [place] [id number].Yilan ChangEGFR-AF XHAMBCKD85 mL/min/1.19d3Oofsehaorr low>=60The [facility] CenterComtr[facility] on above: Performed By: #### CMP ####[facility] Ehkwhifmzo84[address] [place], [place] [address]Dr.Yilan ChangEGFR-NON AF SPAHUWFK93 mL/min/1.73m2 Critically low>=60The [facility] CenterComment on above:Performed By: #### CMP ####[facility] Hpilctmavy8946[address] [place], [place] [address]Dr. Yilan ChangGlobulin (S) [Mass/Vol]2.8 g/dLNormalThOhioHealth Shelby HospitalComment on above:Performed By: #### CMP ####[facility] Uowdebfuyq4520[address] [place], [place] [address]Dr.Yilan ChangGlucose [Mass/Vol]115 mg/dLCritically pokv52-743Edy [facility] CenterComtr[facility] health [facility] on above:Performed By: #### CMP ####[facility] Vnnxsbprao[address] [place], [place] [address]Dr. Yilan ChangPotassium [Moles/Vol]5.2 mmol/LCritically high3.5-5.1The [facility] CenterComtrinity health [facility] on above:Performed By: #### CMP ####[facility] Cosyhikctk8350[address] [place], [place] [address]Dr.Yilan ChangProtein [Mass/Vol]5.4 g/dLCritically low6.4-8.2The [facility] CenterComtr[facility] health [facility] on above: Performed By: #### CMP ####[facility] Lhxexuopgh960[address] [place], [place] [address]Dr.Yilan ChangSodium [Moles/Vol]131 mmol/LCritically khx432-669Fnn [facility] CenterComtrinity health [facility] on above:Performed By: #### CMP ####[facility] Lqhuqddtmg4657[address] [place], [place] [address]Dr. Yilan ChangUrea nitrogen [Mass/Vol]41.0 mg/dLCritically high7.0-18.0The [facility] CenterComment on above:Performed By: #### CMP ####[facility] Owhihgddhk4313[address] [place], [place] [address]Dr.Airam TripathiUrea nitrogen/Creatinine [Mass ratio]21.6 mg/mgNoGlenbeigh HospitalComment on above:Performed By: #### CMP ####[facility] Bbgxhgnjgs906[address] [place], [place] [address]Dr.Yilan ChangTYPE AND SCREENon 28-94-8796HFEU AND SCREENNegativeNoGlenbeigh HospitalComment on above:Performed By: #### TNS ####[facility] Injzvdlafd6227[address] [place], [place] [address]Dr. Selenaneil DeuceCBC AUTO DIFFon 98-63-0819XAKN #0.0 103/ulNormal0.0-0.1The [facility] CenterComtr[facility] health [facility] on above:Performed By: #### CBC ####[facility] Slmyfjbtfp004[address] [place], [place] [address]Dr.Selenaneli ChangBasophils/100 WBC (Bld)0.5 %Normal0.2-2.0[facility] on above:Performed By: #### CBC ####[facility] Ziqdlfsizx2586[address] [place], [place] [address]Dr.Selenalan ChangEO #0.2 103/ulNormal0.0-0.7The [facility] CenterComtr[facility] health [facility] on above:Performed By: #### CBC ####[facility] Fmauvtemdr9507[address] [place], [place] [address]Dr.Airam ChangEosinophils/100 WBC (Bld)3.2 %Normal 0.9-7.0The [facility] CenterComment on above:Performed By: #### CBC ####[facility] Nobepxmkej6055[address] [place], [place] [address]Dr.Airam Tripathi Erythrocyte distribution width (RBC) [Ratio]15.2 %Critically high11.0-15.0The [facility] CenterComment on above:Performed By: #### CBC ####[facility] Kdnafxrecg2359[address] [place], [place] [address]Dr.Airam ChangHematocrit (Bld) [Volume fraction]24.7 %Critically low36.0-48.0The [facility] CenterComment on above:Performed By: #### CBC ####[facility] Jndiecxozo4100[address] [place], [place] [address]Dr.Airam TripathiHemoglobin (Bld) [Mass/Vol]7.6 g/dL Critically low12.0-16.0The [facility] CenterComment on above:Performed By: #### CBC ####[facility] Tmmgpkjwls849[address] [place], [place] [address]Dr. Airam TripathiIG #0.02 10e3/ulNormal0.00-0.03The [facility] CenterComment on above: Performed By: #### CBC ####[facility] Clrdlojayr7007[address] [place], [place] [address]Dr.Airam TripathiIG %0.3 %Normal0.0-0.5The [facility] CenterComment on above:Performed By: #### CBC ####[facility] Olsmdzifnj0827[address] [place], [place] [address]Dr.Airam TripathiLYMPH #1.1 103/ulCritically low1.2-3.8The [facility] CenterComment on above:Performed By: #### CBC ####[facility] Smsbswzqka301[address] [place], [place] [address]Dr.Airam Tripathimphocytes/100 WBC (Bld)18.4 %Critically low20.5-60.0The [facility] CenterComment on above:Performed By: #### CBC ####[facility] Hjqczgpbtd226[address] [place], [place] [address]Dr.Airam TripathiMANUAL DIFF REQ NONormalThe [facility] CenterComment on above:Performed By: #### CBC ####[facility] Ckujumghwp8610[address] [place], [place] [address]Dr. Airam TripathiMEDISYS HEALTH NETWORK (RBC) [Entitic mass]28.5 vcDvzczm84.7-34.0The [facility] Comment on above:Performed By: #### CBC ####[facility] Spbbvyswes678[address] [place], [place] [address]Dr.Airam TripathiMCHC (RBC) [Mass/Vol]30.8 g/dL Ymkxnp38.9-35.2The [facility] CenterComment on above:Performed By: #### CBC ####[facility] [address]qar[address] [place] [address]Dr. Airam TripathiMCV (RBC) [Entitic vol]92.5 oPKjoyve28.0-99.0The [facility] Comment on above:Performed By: #### CBC ####[facility] Fymlaopznd5587[address] [place], [place] [address]Dr.Airam TripathiMONO #0.6 103/ulNormal0.3-0.8 The [facility] HospitalComment on above:Performed By: #### CBC ####[facility] Zraddwotns9184[address] [place], [place] [address]Dr.Airam Tripathi Monocytes/100 WBC (Bld)10.0 %Normal1.7-12.0The [facility] CenterComment on above:Performed By: #### CBC ####[facility] Ydpvsqaydq8529[address] [place], [place] [address]Dr.Airam TripathiNEUT #4.0 103/ulNormal1.4-6.5The [facility] CenterComment on above:Performed By: #### CBC ####[facility] Pbavgwuxkm923[address] [place], [place] [address]Dr.Airam TripathiNeutrophils/100 WBC (Bld)67.6 %Kbmrjy77.0-75.0The [facility] HospitalComment on above:Performed By: #### CBC ####[facility] Dzmunsqebo5337[address] [place], [place] [address]Dr.Airam TripathiPlatelet mean volume (Bld) [Entitic vol]8.8 fLCritically low 9.5-13.5The [facility] CenterComment on above:Performed By: #### CBC ####[facility] Lvuodeyxkw25[address] [place], [place] [address]Dr. Airam EvfifVKN739 103/ncAdamyd416-457Xth [facility] CenterComment on above: Performed By: #### CBC ####[facility] Ykskmfwrgm[address] [place] [address]Dr.Airam ChangRBC2.67 106/ulCritically low4.20-5.40The [facility] CenterComment on above:Performed By: #### CBC ####[facility] [address]oubqkndj[address] [place] [address]Dr.Airam TripathiWBC5.9 103/ul Normal4.0-11.0The [facility] CenterComment on above:Performed By: #### CBC ####[facility] Litnovaows7211[address] [place], [place] [address]Dr. Airam ChangCovid-19 PCR (CVDTBH)on 94-15-9948PVLO-CoV-2 (COVID-19) RNA MIKE+probe Ql (Unsp spec)Not detectedNormalNOT DETECTEDThe [facility] on above:Result Comment: When diagnostic testing is [...] for this test is supported by the [employer] of [employer] and Human Service's declaration that [...] no longer be used).Performed By: #### CVDTBH ####[facility] [address] [place] [address]Dr. Airam TripathiMAGNESIUMon 95-50-3268Uxirysaai [Mass/Vol]1.7 mg/dLCritically low1.8-2.4The [facility] on above: Performed By: #### MG, CMP ####[facility] Qdjuucntve[address] [place], [place] [address]Dr. Airam TripathiPOINT OF CARE GLUCOSEon 10-05-2022 Glucose [Mass/Vol]92 mg/lRUzgeuo91-053Ooz [facility] on above: Performed By: #### POCGLUC ####[facility] Dvvituinho[address] [place] [address]Dr. Airam ChangPROF 14(COMP METB)on 15-33-6819Drkggan [Mass/Vol]2.9 g/dLCritically low3.4-5.0The [facility] CenterComment on above: Performed By: #### MG, CMP ####[facility] [address]dlpefcw[address] [place] [address]Dr. Airam ChangAlbumin/Globulin [Mass ratio]0.9 {ratio}NormalThe [facility] on above:Performed By: #### MG, CMP ####[facility] Uyfobmpkga7169[address] [place], [place] [address]Dr. Airam ChangALP [Catalytic activity/Vol]122 U/LCritically suqv64-162Xep [facility] on above:Performed By: #### MG, CMP ####[facility] Cnvabxuong96[address] [place], [place] [address]Dr. Selenalan ChangALT [Catalytic activity/Vol]24 U/QGmdxgi05-69Ofu [facility] on above:Performed By: #### MG, CMP ####[facility] [address]vtcqtsuri[address] [place] [address]Dr. Airam ChangAnion gap [Moles/Vol]13.1 mmol/LNormalThe [facility] CenterComtrinity health [facility] on above:Performed By: #### MG, CMP ####[facility] Godydnwjhh3960[address] [place], [place] [address]Dr. Selenalan ChangAST [Catalytic activity/Vol]21 U/HBdnbcx18-03Mki [facility] on above:Performed By: #### MG, CMP ####[facility] Iaznyggogr[address] [place], [place] [address]Dr. Airam ChangBilirubin [Mass/Vol]0.2 mg/dLNormal0.2-1.0The [facility] HospitalComment on above:Performed By: #### MG, CMP ####[facility] Pwjudoztgn[address] [place], [place] [address]Dr. Yilan ChangCalcium [Mass/Vol]8.4 mg/dLCritically low8.5-10.1The [facility] CenterComment on above: Performed By: #### MG, CMP ####[facility] Xthsfmwetu025[address] [place], [place] [address]Dr. Yilan ChangChloride [Moles/Vol]102 mmol/LNormal 98-107The [facility] CenterComment on above:Performed By: #### MG, CMP ####[facility] Linlxsdkjm[address] [place], [place] [address]Dr. Yilan ChangCO2 [Moles/Vol]23.2 mmol/AMpdtfw46.0-32.0The [facility] CenterComment on above:Performed By: #### MG, CMP ####[facility] Hfahirmzee55[address] [place], [place] [address]Dr. Yilan ChangCreatinine [Mass/Vol]1.96 mg/dL Critically high0.55-1.02The [facility] CenterComment on above:Performed By: #### MG, CMP ####[facility] Ifxmtdlsba4[address] [place], [place] [address]Dr. Yilan ChangEGFR-AF AJYJCZVQ18 mL/min/1.87c2Xrphuptxvt low>=60The [facility] CenterComment on above:Performed By: #### MG, CMP ####[facility] Juccpxlxet[address] [place], [place] [address]Dr. Yilan ChangEGFR- NON AF WWYDMSTQ55 mL/min/1.16i7Cdbmclwrfv low>=60The [facility] CenterComment on above:Performed By: #### MG, CMP ####[facility] Fjjvwcmepd04[address] [place], [place] [address]Dr. Yilan ChangGlobulin (S) [Mass/Vol]3.2 g/dLNormal The [facility] CenterComment on above:Performed By: #### MG, CMP ####[facility] Ixnspelnsi676[address] [place], [place] [address]Dr. Airam Tripathi Glucose [Mass/Vol]68 mg/dLCritically uwv15-356Sfv [facility] CenterComment on above:Performed By: #### MG, CMP ####[facility] F[address]psxaope[address] [place] [address]Dr. Airam TripathiPotassium [Moles/Vol]5.3 mmol/L Critically high3.5-5.1The [facility] CenterComment on above:Performed By: #### MG, CMP ####[facility] Ooexydkdcd[address] [place], [place] [address]Dr. Airam TripathiProtein [Mass/Vol]6.1 g/dLCritically low6.4-8.2The [facility] CenterComment on above:Performed By: #### MG, CMP ####[facility] Rpoizyjlpm5574[address] [place], [place] [address]Dr. Selenaneil ChangSodium [Moles/Vol]133 mmol/LCritically bpj143-205Wlk [facility] CenterComment on above: Performed By: #### MG, CMP ####[facility] Dvuhcywqgq2966[address] [place], [place] [address]Dr. Airam ChangUrea nitrogen [Mass/Vol]39.0 mg/dL Critically high7.0-18.0The [facility] CenterComment on above:Performed By: #### MG, CMP ####[facility] Usstnfxhns4022[address] [place], [place] [address]Dr. Selenaneil ChangUrea nitrogen/Creatinine [Mass ratio]19.9 mg/mgNormalThe [facility] CenterComment on above:Performed By: #### MG, CMP ####[facility] Rwanfrgllu8295[address] [place], [place] [address]Dr. Selenaneil Tripathi SODIUM RANDOM URINEon 95-49-3500Shihej (U) [Moles/Vol]37 mmol/HJvidqu21-43Vxu [facility] CenterComment on above:Performed By: #### NICKOLAS ####[facility] Tebpwejmef0594[address] [place], [place] [address]Dr.Airam TripathiUA RANDOM W/MICROSCOPICon 82-37-2207YMGQYALYBKALPDpjsyqtnXKYW SEENThe [facility] Comment on above:Performed By: #### UAMIC ####[facility] Ligdkvyays9996[address] [place], [place] [address]Dr. Yilan ChangBilirubin Ql (U)Negative NormalNEGATIVEHocking Valley Community HospitalComment on above:Performed By: #### UAMIC ####[facility] Okhzmexpbu[address] [place], [place] [address]Dr. Yilan ChangCASTSEENAbnormalNONE SEENThe [facility] CenterComment on above: Performed By: #### UAMIC ####[facility] Axlojckoxv[address] [place], [place] [address]Dr. Yilan ChangClarity (U)CLEARNormalCLEARHocking Valley Community HospitalComment on above:Performed By: #### UAMIC ####[facility] Lamezyhcih227[address] [place], [place] [address]Dr. Yilan ChangColor (U) YELLOWNormalYELLOWHocking Valley Community HospitalComment on above:Performed By: #### UAMIC ####[facility] Xcairtcjjs9[address] [place], [place] [address]Dr. Yilan ChangCrystals LM Nom (Urine sed)NONE SEENNormalNONE SEENHocking Valley Community HospitalComment on above:Performed By: #### UAMIC ####[facility] Dgbzfbbupq2630[address] [place], [place] [address]Dr. Yilan ChangEpithelial cells LM Ql (Urine sed)RARENormalNONE SEEN /RAREThe [facility] CenterComment on above:Performed By: #### UAMIC ####[facility] Kxxxphmyxu104[address] [place], [place] [address]Dr. Yilan ChangGlucose Ql (U)NegativeNormalNEGATIVEAcmc Healthcare System Glenbeigh HospitalComment on above:Performed By: #### UAMIC ####[facility] Hqzgydtbey916[address] [place], [place] [address]Dr. Yilan Tripathi Hemoglobin Ql (U)NegativeNormalNEGATIVEHocking Valley Community HospitalComment on above: Performed By: #### UAMIC ####[facility] Vbnshvurlp9899[address] [place], [place] [address]Dr. Yilan ChangHYALINE CASTRARENormalThe Sophie HospitalComment on above:Performed By: #### UAMIC ####[facility] Q[address]vtvpgi[address] [place] [address]Dr. Yilan ChangKetones Ql (U) TRACEAbnormalNEGATIVEThe [facility] HospitalComment on above:Performed By: #### UAMIC ####[facility] Cqpusyioba1047[address] [place], [place] [address]Dr. Yilan ChangLEUKOCYTESNegativeNormalNEGATIVEThe [facility] HospitalComment on above:Performed By: #### UAMIC ####[facility] Kjffhphsyd7585[address] [place], [place] [address]Dr. Airam TripathiMUCOUSNONE SEENNormalNONE SEENHocking Valley Community HospitalComment on above:Performed By: #### UAMIC ####[facility] Afgsxzlatj260[address] [place], [place] [address]Dr. Airam ChangNitrite Ql (U)NegativeNormalNEGATIVEThe [facility] HospitalComment on above:Performed By: #### UAMIC ####[facility] Tmniyzetbc0586[address] [place], [place] [address]Dr. Airam ChangpH (U)5.0 [pH]Normal5-9The [facility] CenterComment on above:Performed By: #### UAMIC ####[facility] Ylsthipwwo0469[address] [place], [place] [address]Dr. Selenalan QhonwZHJ3-4Gfbyfx2-1Awl [facility] Comment on above:Performed By: #### UAMIC ####[facility] Qclvrecxxl4050[address] [place], [place] [address]Dr. Airam TripathiSPEC GRAVITY1.015Normal 1.005-<=1.025The [facility] CenterComment on above:Performed By: #### UAMIC ####[facility] Dejjswzyln169[address] [place], [place] [address]Dr. Selenalan DeuceUA PROTEINNegativeNormalNEGATIVE/ TRACEThe [facility] HospitalComment on above:Performed By: #### UAMIC ####[facility] Poyahvnmzt9764[address] [place], [place] [address]Dr. Yilan ChangUrobilinogen Qn (U)0.2 {Ligia'U}/dL Normal0.2 - 1.0The [facility] CenterComment on above:Performed By: #### UAMIC ####[facility] Qpcjwashzw[address] [place] [address]Dr. Airam ChangWBCNONE SEENNormalNONE SEENThe [facility] CenterComment on above: Performed By: #### UAMIC ####[facility] Llvmbdqqwr[address] [place], [place] [address]Dr. Airam ChangCBC AUTO DIFFon 26-82-7149MXIS #0.0 103/ulNormal0.0-0.1The [facility] CenterComtrinity health [facility] on above:Performed By: #### CBC ####[facility] Mufnrkydxk1608[address] [place], [place] [address]Dr. Airam ChangBasophils/100 WBC (Bld)0.3 %Normal0.2-2.0The [facility] on above:Performed By: #### CBC ####[facility] Hzqycvnqxx3050[address] [place], [place] [address]Dr.Selenalan ChangEO #0.2 103/ulNormal0.0-0.7The [facility] on above:Performed By: #### CBC ####[facility] Uvsiwwrdok792[address] [place], [place] [address]Dr.Airam ChangEosinophils/100 WBC (Bld)3.2 %Normal0.9-7.0The [facility] Hospitalment on above:Performed By: #### CBC ####[facility] Cywdtrqqpm414[address] [place], [place] [address]Dr.Airam ChangErythrocyte distribution width (RBC) [Ratio]15.1 %Critically high11.0-15.0The [facility] on above:Performed By: #### CBC ####[facility] Argvspyuuk7526[address] [place], [place] [address]Dr. Airam ChangHematocrit (Bld) [Volume fraction]27.6 %Critically low36.0-48.0The [facility] CenterComment on above:Performed By: #### CBC ####[facility] Etzrriuatl[address] [place] [address]Dr.Airam TripathiHemoglobin (Bld) [Mass/Vol]8.7 g/dLCritically low12.0-16.0The [facility] HospitalComment on above:Performed By: #### CBC ####[facility] Fhoyixruno7176[address] [place], [place] [address]Dr.Airam ChangIG #0.03 10e3/ulNormal0.00-0.03The [facility] CenterComment on above:Performed By: #### CBC ####[facility] Rzjdlrocaj9874[address] [place], [place] [address]Dr.Airam DeuceIG %0.4 %Normal 0.0-0.5The [facility] CenterComment on above:Performed By: #### CBC ####[facility] Invskjrrju830[address] [place], [place] [address]Dr.Airam DeuceLYMPH #1.2 103/ulNormal1.2-3.8The [facility] CenterComment on above:Performed By: #### CBC ####[facility] Uabuqnwxik1694[address] [place], [place] [address]Dr.Airam TripathiLymphocytes/100 WBC (Bld)16.4 %Critically low20.5-60.0The [facility] CenterComment on above:Performed By: #### CBC ####[facility] Urkgqrudpf9695[address] [place], [place] [address]Dr.Airam TripathiMANUAL DIFF REQ NONormalThe [facility] CenterComment on above:Performed By: #### CBC ####[facility] Nucwzzpuhf2145[address] [place], [place] [address]Dr. Airam TripathiMEDISYS HEALTH NETWORK (RBC) [Entitic mass]28.5 lnMgogdn32.7-34.0The [facility] Comment on above:Performed By: #### CBC ####[facility] Nnhjwjknmg276[address] [place], [place] [address]Dr.Airam TripathiST. PETER'[facility] (RBC) [Mass/Vol]31.5 g/dL Istyan81.9-35.2The [facility] CenterComment on above:Performed By: #### CBC ####[facility] Lmaoomgncv2427[address] [place], [place] [address]Dr. Airam TripathiMCV (RBC) [Entitic vol]90.5 cOLgozev75.0-99.0The [facility] Comment on above:Performed By: #### CBC ####[facility] Rjkvptjorn1137[address] [place], [place] [address]Dr.Airam TripathiMONO #0.5 103/ulNormal0.3-0.8 The [facility] HospitalComment on above:Performed By: #### CBC ####[facility] Zgddagfmcd2705[address] [place], [place] [address]DrBroderick Tripathi Monocytes/100 WBC (Bld)7.3 %Normal1.7-12.0The [facility] HospitalComment on above: Performed By: #### CBC ####[facility] Ycbltkebmi8227[address] [place], [place] [address]Dr.Airam TripathiNEUT #5.4 103/ulNormal1.4-6.5The [facility] HospitalComment on above:Performed By: #### CBC ####[facility] Dcgshdzzkh245[address] [place], [place] [address]Dr.Airam TripathiNeutrophils/100 WBC (Bld)72.4 %Yvdlpf20.0-75.0The [facility] HospitalComment on above:Performed By: #### CBC ####[facility] Urhfuceqjb9225[address] [place], [place] [address]Dr.Airam TripathiPlatelet mean volume (Bld) [Entitic vol]9.1 fLCritically low 9.5-13.5The [facility] HospitalComment on above:Performed By: #### CBC ####[facility] Jepyzumxmq7777[address] [place], [place] [address]Dr. Airam YkjwcXPF078 103/osAqqpie204-193Zya [facility] HospitalComment on above: Performed By: #### CBC ####[facility] Iqkseetkxv8049[address] [place], [place] [address]Dr.Yilan ChangRBC3.05 106/ulCritically low4.20-5.40The [facility] CenterComment on above:Performed By: #### CBC ####[facility] [address]isvsxo[address] [place] [address]Dr.Yineil ChangWBC7.4 103/ul Normal4.0-11.0The [facility] CenterComment on above:Performed By: #### CBC ####[facility] Orcowcduqv7837[address] [place], [place] [address]Dr. Yilan ChangPROF 14(COMP METB)on 43-78-2445Injwnmv [Mass/Vol]3.3 g/dLCritically low3.4-5.0The [facility] CenterComment on above:Performed By: #### CMP ####[facility] Rpoeqbwzke5429[address] [place], [place] [address]Dr. Airam ChangAlbumin/Globulin [Mass ratio]0.9 {ratio}NormalThe [facility] Comment on above:Performed By: #### CMP ####[facility] Smzvgemhhn5017[address] [place], [place] [address]Dr.Selenalan ChangALP [Catalytic activity/Vol] 127 U/LCritically ltia63-590Ywb [facility] CenterComment on above:Performed By: #### CMP ####[facility] Nppmvszrdf326[address] [place], [place] [address]Dr.Airam ChangALT [Catalytic activity/Vol]29 U/SPfdjtn61-06Lqb [facility] CenterComment on above:Performed By: #### CMP ####[facility] Zglgmfpjss1528[address] [place], [place] [address]Dr.Airam ChangAnion gap [Moles/Vol]14.6 mmol/LNormalThe [facility] CenterComment on above:Performed By: #### CMP ####[facility] Zjmziuyanf0827[address] [place], [place] [address]Dr.Yilan ChangAST [Catalytic activity/Vol]28 U/MZrnywe59-40Mln [facility] CenterComment on above:Performed By: #### CMP ####[facility] Tmeoqzifup[address] StreetB[place]vue, [place] [address]Up.Yilan ChangBilirubin [Mass/Vol]0.3 mg/dLNormal0.2-1.0The [facility] CenterComment on above:Performed By: #### CMP ####[facility] Cjjkebqqst135[address] [place], [place] [address]Dr.Yilan ChangCalcium [Mass/Vol]8.9 mg/dLNormal8.5-10.1The [facility] CenterComment on above:Performed By: #### CMP ####[facility] Ehbrqgbkny4894[address] [place], [place] [address]Dr.Yilan ChangChloride [Moles/Vol]99 mmol/CFbrigr18-257Hby [facility] CenterComment on above:Performed By: #### CMP ####[facility] Upvdphtkah6200[address] [place], [place] [address]Dr.Yilan ChangCO2 [Moles/Vol]25.1 mmol/OTlbwdl66.0-32.0The [facility] CenterComment on above:Performed By: #### CMP ####[facility] Juqkoisuro200[address] [place], [place] [address]Dr.Yilan ChangCreatinine [Mass/Vol]1.42 mg/dLCritically high0.55-1.02The [facility] CenterComment on above:Performed By: #### CMP ####[facility] Aeevvuripc[address] [place], [place] [address]Dr.Yilan ChangEGFR-AF TDIJFIYT60 mL/min/1.73m2 Critically low>=60The [facility] CenterComment on above:Performed By: #### CMP ####[facility] Pvtdjmfybj5836[address] [place], [place] [address]Dr. Yilan ChangEGFR-NON AF CQGWMOUY08 mL/min/1.56q4Qzehdgmfqz low>=60The [facility] CenterComment on above:Performed By: #### CMP ####[facility] Azjqbzahre5975[address] [place], [place] [address]Dr.Yilan ChangGlobulin (S) [Mass/Vol]3.6 g/dLNormalThe [facility] CenterComment on above:Performed By: #### CMP ####[facility] [address]gqu[address] [place] [address]Dr.Selenalan ChangGlucose [Mass/Vol]79 mg/pJWnfxtp83-952Pxw [facility] Comment on above:Performed By: #### CMP ####[facility] Vqjcjroemi[address] [place] [address]Dr.Airam ChangPotassium [Moles/Vol]5.7 mmol/LCritically high3.5-5.1The [facility] CenterComment on above:Performed By: #### CMP ####[facility] Qwbdxnpxjm1998[address] [place], [place] [address]Dr.Yilan ChangProtein [Mass/Vol]6.9 g/dLNormal6.4-8.2The [facility] Comment on above:Performed By: #### CMP ####[facility] Gxlmqjpscr2279[address] [place], [place] [address]Dr.Selenalan ChangSodium [Moles/Vol]133 mmol/L Critically hrq497-269Uar [facility] CenterComment on above:Performed By: #### CMP ####[facility] Uzmfgbsedu8564[address] [place], [place] [address]Dr. Selenalan ChangUrea nitrogen [Mass/Vol]35.0 mg/dLCritically high7.0-18.0The [facility] CenterComment on above:Performed By: #### CMP ####[facility] Dfuvczgpff505[address] [place], [place] [address]Dr.Selenalan ChangUrea nitrogen/Creatinine [Mass ratio]24.6 mg/mgNormalThe [facility] CenterComment on above:Performed By: #### CMP ####[facility] Avepqmgswn5616[address] [place], [place] [address]Dr.Selenalan ChangOSMOLALITYon 26-91-5433Bzbgwblxkx [Osmolality]277 mosm/eiCwmaef265-940Ydz [facility] CenterComment on above: Performed By: #### OSMO ####[facility] Hfwtujpmbj1067[address] [place], [place] [address]Dr. Airam ChangCBC AUTO DIFFon 63-43-6513PKUJ #0.0 103/ulNormal0.0-0.1The [facility] CenterComment on above:Performed By: #### CBC ####[facility] Dtnkdwddex3950[address] [place], [place] [address]Dr. Selenalan ChangBasophils/100 WBC (Bld)0.5 %Normal0.2-2.0The [facility] CenterComment on above:Performed By: #### CBC ####[facility] Roburzzlvh0086[address] [place], [place] [address]Dr.Yilan ChangEO #0.2 103/ulNormal0.0-0.7The [facility] CenterComment on above:Performed By: #### CBC ####[facility] Tcbnregscr7475[address] [place], [place] [address]Dr.Selenalan ChangEosinophils/100 WBC (Bld)3.2 %Normal0.9-7.0The [facility] CenterComment on above:Performed By: #### CBC ####[facility] Jdbnvgkgvn998[address] [place], [place] [address]Dr.Airam ChangErythrocyte distribution width (RBC) [Ratio]15.1 %Critically high11.0-15.0The [facility] CenterComment on above:Performed By: #### CBC ####[facility] Xlkvgtsvci0559[address] [place], [place] [address]Dr. Airam ChangHematocrit (Bld) [Volume fraction]26.2 %Critically low36.0-48.0The [facility] CenterComment on above:Performed By: #### CBC ####[facility] Alfdvsvnft5314[address] [place], [place] [address]Dr.Airam ChangHemoglobin (Bld) [Mass/Vol]8.1 g/dLCritically low12.0-16.0The [facility] CenterComment on above:Performed By: #### CBC ####[facility] Kfikjwolpf1628[address] [place], [place] [address]Dr.Selenalan ChangIG #0.02 10e3/ulNormal0.00-0.03The [facility] CenterComment on above:Performed By: #### CBC ####[facility] Ymwmycygxk6[address] [place] [address]Dr.Airam TripathiIG %0.4 %Normal 0.0-0.5The [facility] CenterComment on above:Performed By: #### CBC ####[facility] Glhazuncby7138[address] [place], [place] [address]Dr.Airam TripathiLYMPH #1.3 103/ulNormal1.2-3.8The [facility] CenterComment on above:Performed By: #### CBC ####[facility] Xeqbbajfze9875[address] [place], [place] [address]Dr.Airam TripathiLymphocytes/100 WBC (Bld)22.6 %Poltlt93.5-60.0The [facility] CenterComment on above:Performed By: #### CBC ####[facility] Ibtvrcktip6456[address] [place], [place] [address]Dr.Airam TripathiMANUAL DIFF REQ NONormalThe [facility] CenterComment on above:Performed By: #### CBC ####[facility] Stvtvvszre649[address] [place], [place] [address]Dr. Airam TripathiH (RBC) [Entitic mass]28.0 fgGarcpo72.7-34.0The [facility] Comment on above:Performed By: #### CBC ####[facility] Wyhwjigbkn1944[address] [place], [place] [address]Dr.Airam TripathiHC (RBC) [Mass/Vol]30.9 g/dL Dkqyie36.9-35.2The [facility] CenterComment on above:Performed By: #### CBC ####[facility] Efunlmaeql4024[address] [place], [place] [address]Dr. Airam TripathiV (RBC) [Entitic vol]90.7 xKBwsikg92.0-99.0The [facility] Comment on above:Performed By: #### CBC ####[facility] Lpxcuhtqop5527[address] [place], [place] [address]Dr.Airam TripathiMONO #0.5 103/ulNormal0.3-0.8 The [facility] CenterComment on above:Performed By: #### CBC ####[facility] Qwjfotqvfn[address] [place] [address]Dr.Airam Tripathi Monocytes/100 WBC (Bld)9.6 %Normal1.7-12.0The [facility] CenterComtr[facility] on above: Performed By: #### CBC ####[facility] Ewvnocaodc4626[address] [place], [place] [address]Dr.Airam TripathiNEUT #3.6 103/ulNormal1.4-6.5The [facility] CenterComment on above:Performed By: #### CBC ####[facility] Mjqozreory7064[address] [place], [place] [address]Dr.Airam TripathiNeutrophils/100 WBC (Bld)63.7 %Hhihqp74.0-75.0The [facility] on above:Performed By: #### CBC ####[facility] Cbnuknadbi7450[address] [place], [place] [address]Dr.Airam TripathiPlatelet mean volume (Bld) [Entitic vol]9.4 fLCritically low 9.5-13.5The [facility] on above:Performed By: #### CBC ####[facility] Uxjazokadu2275[address] [place], [place] [address]Dr. Airam LzpehMEP117 103/hwFxibhl851-845Baz [facility] on above: Performed By: #### CBC ####[facility] Wcnomvrran5256[address] [place], [place] [address]Dr.Airam ChangRBC2.89 106/ulCritically low4.20-5.40The [facility] on above:Performed By: #### CBC ####[facility] Eyztwnaewf0457[address] [place], [place] [address]Dr.Airam ChangWBC5.6 103/ul Normal4.0-11.0The [facility] CenterComtr[facility] on above:Performed By: #### CBC ####[facility] Wpvnlnykvb0465[address] [place], [place] [address]Dr. Airam ChangPROF 14(COMP METB)on 88-27-5820Eaajtjv [Mass/Vol]3.0 g/dLCritically low3.4-5.0The [facility] HospitalComment on above:Performed By: #### CMP ####[facility] [address]irbfrcx[address] [place] [address]Dr. Yilan ChangAlbumin/Globulin [Mass ratio]1.1 {ratio}NormalThe [facility] Comment on above:Performed By: #### CMP ####[facility] Tr[address]ijfomql[address] [place] [address]Dr.Yilan ChangALP [Catalytic activity/Vol] 102 U/HKjrfqh34-162Uct [facility] CenterComment on above:Performed By: #### CMP ####[facility] Lrmqxcjzms01[address] [place], [place] [address]Dr. Yilan ChangALT [Catalytic activity/Vol]20 U/BTjfhnt03-20Ovz [facility] Comment on above:Performed By: #### CMP ####[facility] Zmkvizylxh099[address] [place], [place] [address]Dr.Yilan ChangAnion gap [Moles/Vol]11.1 mmol/LNormalThe [facility] CenterComment on above:Performed By: #### CMP ####[facility] Cfcyzzmjhf7165[address] [place], [place] [address]Dr. Yilan ChangAST [Catalytic activity/Vol]18 U/VHeuqds42-94Wqy [facility] Comment on above:Performed By: #### CMP ####[facility] Qqogyeofmq8826[address] [place], [place] [address]Dr.Yilan ChangBilirubin [Mass/Vol]0.2 mg/dL Normal0.2-1.0The [facility] CenterComment on above:Performed By: #### CMP ####[facility] Yiujtdkcnx5268[address] [place], [place] [address]Dr. Yilan ChangCalcium [Mass/Vol]8.0 mg/dLCritically low8.5-10.1The [facility] CenterComment on above:Performed By: #### CMP ####[facility] Rjgsxswqog9976[address] [place], [place] [address]Dr.Yilan ChangChloride [Moles/Vol]100 mmol/ZSwvoyy96-605Wuw [facility] CenterComment on above:Performed By: #### CMP ####[facility] Lmlxzbbcol2239[address] [place], [place] [address]Dr.Yilan ChangCO2 [Moles/Vol]24.8 mmol/FKrdfun26.0-32.0The [facility] CenterComment on above:Performed By: #### CMP ####[facility] Tcbmqaxuot7699[address] [place], [place] [address]Dr.Yilan ChangCreatinine [Mass/Vol]1.11 mg/dLCritically high0.55-1.02The [facility] CenterComment on above:Performed By: #### CMP ####[facility] Hjfmptrnxt[address] [place], [place] [address]Dr.Yilan ChangEGFR-AF YEMENI>60Normal>=60The [facility] CenterComtr[facility] on above:Performed By: #### CMP ####[facility] Pdwbdnpllp4397[address] [place], [place] [address]Dr.Yilan ChangEGFR-NON AF ULBGCWHM04 mL/min/1.66t4Seetgofbep low>=60The [facility] CenterComment on above: Performed By: #### CMP ####[facility] Pfbuanvaoc8[address] [place], [place] [address]Dr.Yilan ChangGlobulin (S) [Mass/Vol]2.8 g/dLNormalThe [facility] CenterComtr[facility] on above:Performed By: #### CMP ####[facility] Egynlsuapi1187[address] [place], [place] [address]Dr.Yilan ChangGlucose [Mass/Vol]77 mg/yAEqwkoe32-671Ahm [facility] CenterComment on above:Performed By: #### CMP ####[facility] Onynxpudmg9000[address] [place], [place] [address]Dr.Yilan ChangPotassium [Moles/Vol]4.9 mmol/LNormal3.5-5.1The [facility] CenterComment on above:Performed By: #### CMP ####[facility] Incdejrveb4626[address] [place], [place] [address]Dr.Yilan ChangProtein [Mass/Vol]5.8 g/dLCritically low6.4-8.2The [facility] CenterComment on above: Performed By: #### CMP ####[facility] [address] [place] [address]Dr.Airam ChangSodium [Moles/Vol]131 mmol/LCritically fpy941-598Dpa [facility] CenterCom[facility] on above:Performed By: #### CMP ####[facility] Y[address]ovjldl[address] [address]Dr. Airam ChangUrea nitrogen [Mass/Vol]33.0 mg/dLCritically high7.0-18.0The [facility] CenterCom[facility] on above:Performed By: #### CMP ####[facility] Lucpacremk[address] [place], [place] [address]Dr.Selenalan ChangUrea nitrogen/Creatinine [Mass ratio]29.7 mg/mgNoGlenbeigh HospitalComtrinity health [facility] on above:Performed By: #### CMP ####[facility] Rogwfwktwk40[address] [place], [place] [address]Dr.Selenaneil ChangECHOCARDIO M/2D COMPLETEon 09-21-2022 ECHOCARDIO M/2D [facility]OSMOLALITYon 09-21-2022 Osmolality [Osmolality]282 mosm/zhOrgjoc027-629Bmh [facility] on above:Performed By: #### OSMO ####[facility] Bswzfnjxun6[address] [place], [place] [address]Dr. Selenaneil DeucePHOSPHOLIPIDSon 09-21-2022 Phospholipids, Aufpr767 mg/yVQsemla506-740Ogx [facility] on above: Performed By: #### PHOSLIP ####[facility] Jkcnntmzcl35[address] [place], [place] [address]Dr. Airam TripathiCBC AUTO DIFFon 48-54-7777NYNK #0.0 103/ulNormal0.0-0.1The [facility] on above:Performed By: #### CBC ####[facility] Omsduuithg85[address] [place], [place] [address]Dr. Selenalan ChangBasophils/100 WBC (Bld)0.5 %Normal0.2-2.0The [facility] HospitalComment on above:Performed By: #### CBC ####[facility] Mjlkdkjuwn49[address] [place], [place] [address]Dr.Yilan ChangEO #0.2 103/ulNormal0.0-0.7The [facility] HospitalComment on above:Performed By: #### CBC ####[facility] Foxbdmyfeu4465[address] [place], [place] [address]Dr.Selenalan ChangEosinophils/100 WBC (Bld)2.9 %Normal0.9-7.0The [facility] HospitalComment on above:Performed By: #### CBC ####[facility] Zgsifebqaw[address] [place], [place] [address]Dr.Selenalan ChangErythrocyte distribution width (RBC) [Ratio]15.4 %Critically high11.0-15.0The [facility] CenterComment on above:Performed By: #### CBC ####[facility] Itwsgyxhvy1504[address] [place], [place] [address]Dr. Airam ChangHematocrit (Bld) [Volume fraction]26.3 %Critically low36.0-48.0The [facility] CenterComment on above:Performed By: #### CBC ####[facility] Bllnhaivul4820[address] [place], [place] [address]Dr.Airam ChangHemoglobin (Bld) [Mass/Vol]8.2 g/dLCritically low12.0-16.0The [facility] CenterComment on above:Performed By: #### CBC ####[facility] Gxsqelyfbi01[address] [place], [place] [address]Dr.Yilan ChangIG #0.03 10e3/ulNormal0.00-0.03The [facility] CenterComment on above:Performed By: #### CBC ####[facility] Glnyejdphr4948[address] [place], [place] [address]Dr.Yilan ChangIG %0.4 %Normal 0.0-0.5The [facility] CenterComment on above:Performed By: #### CBC ####[facility] Bnamkvmeqt4959[address] [place], [place] [address]Dr.Yilan ChangLYMPH #1.9 103/ulNormal1.2-3.8The [facility] CenterComment on above:Performed By: #### CBC ####[facility] Dgjpmdsbug4269[address] [place], [place] [address]Dr.Airam TripathiLymphocytes/100 WBC (Bld)23.0 %Useizh53.5-60.0The [facility] CenterComment on above:Performed By: #### CBC ####[facility] Tgubqtojhc1377[address] [place], [place] [address]Dr.Selenaneil DeuceMANUAL DIFF REQ NONormalThe [facility] CenterComment on above:Performed By: #### CBC ####[facility] Uhmbikhnam6120[address] [place], [place] [address]Dr. Airam TripathiH (RBC) [Entitic mass]28.5 skVgvtva62.7-34.0The [facility] Comment on above:Performed By: #### CBC ####[facility] Gpaygarnww675[address] [place], [place] [address]Dr.Airam TripathiHC (RBC) [Mass/Vol]31.2 g/dL Bqnfml00.9-35.2The [facility] CenterComment on above:Performed By: #### CBC ####[facility] Phxagucxag880[address] [place], [place] [address]Dr. Airam TripathiV (RBC) [Entitic vol]91.3 wFUnenhv87.0-99.0The [facility] Comment on above:Performed By: #### CBC ####[facility] Lwisozfgce6696[address] [place], [place] [address]DrBroderick DeuceMONO #0.7 103/ulNormal0.3-0.8 The [facility] CenterComment on above:Performed By: #### CBC ####[facility] Ffyrkzohvt9774[address] [place], [place] [address]DrKiannaSelenaneil Tripathi Monocytes/100 WBC (Bld)7.7 %Normal1.7-12.0The [facility] CenterComment on above: Performed By: #### CBC ####[facility] Kkzltojyap15[address] [place], [place] [address]DrBroderick TripathiNEUT #5.5 103/ulNormal1.4-6.5The [facility] CenterComment on above:Performed By: #### CBC ####[facility] [address] [place] [address]Dr.Airam TripathiNeutrophils/100 WBC (Bld)65.5 %Etvsvl90.0-75.0The [facility] CenterComment on above:Performed By: #### CBC ####[facility] Urlxeidgsm101[address] [place], [place] [address]Dr.Airam TripathiPlatelet mean volume (Bld) [Entitic vol]9.1 fLCritically low 9.5-13.5The [facility] CenterComment on above:Performed By: #### CBC ####[facility] Ajnthpunpp3626[address] [place], [place] [address]Dr. Airam HtwrnUKM581 103/tzDjcyvh264-876Pxo [facility] CenterComment on above: Performed By: #### CBC ####[facility] Wwpdiwbbnh0926[address] [place], [place] [address]Dr.Airam TripathiRBC2.88 106/ulCritically low4.20-5.40The [facility] CenterComment on above:Performed By: #### CBC ####[facility] Qckpscchpu425[address] [place], [place] [address]Dr.Airam TripathiWBC8.4 103/ul Normal4.0-11.0The [facility] CenterComment on above:Performed By: #### CBC ####[facility] Bgluhvqdfw7899[address] [place], [place] [address]Dr. Airam TripathiPROF CHEM 8 (BAS METB)on 10-34-7851Nompt gap [Moles/Vol]10.3 mmol/L NormalThe [facility] CenterComment on above:Performed By: #### BMP ####[facility] Mwensqrvez5920[address] [place], [place] [address]Dr.Airam Tripathi Calcium [Mass/Vol]7.9 mg/dLCritically low8.5-10.1The [facility] CenterComment on above:Performed By: #### BMP ####[facility] [address] [place] [address]Dr.Yilan ChangChloride [Moles/Vol]98 mmol/LNormal 98-107The [facility] Hospitalment on above:Performed By: #### BMP ####[facility] Ttwbucnjdz2507[address] [place], [place] [address]Dr.Yilan ChangCO2 [Moles/Vol]27.5 mmol/DNlrcrt34.0-32.0The [facility] CenterComment on above: Performed By: #### BMP ####[facility] Kocwomfytp212[address] [place], [place] [address]Dr.Yilan ChangCreatinine [Mass/Vol]1.44 mg/dL Critically high0.55-1.02The [facility] CenterComtr[facility] on above:Performed By: #### BMP ####[facility] Ntgtqoewnc7588[address] [place], [place] [address]Dr.Yilan ChangEGFR-AF SJGMMTTL78 mL/min/1.58a0Gkzthemidk low>=60The [facility] Hospitalment on above:Performed By: #### BMP ####[facility] Xjlzemqhmk1806[address] [place], [place] [address]Dr.Yilan ChangEGFR-NON AF IBETCKEX42 mL/min/1.34o4Qucvapqvlb low>=60The [facility] CenterCom[facility] on above: Performed By: #### BMP ####[facility] Jttzxcqssf5497[address] [place], [place] [address]Dr.Yilan ChangGlucose [Mass/Vol]91 mg/fWCiemxy56-966 The [facility] on above:Performed By: #### BMP ####[facility] Psqatqjrvw2665[address] [place], [place] [address]Dr.Yilan Tripathi Potassium [Moles/Vol]4.8 mmol/LNormal3.5-5.1The [facility] CenterComment on above:Performed By: #### BMP ####[facility] Xchmslzcmw4055[address] [place], [place] [address]Dr.Yilan ChangSodium [Moles/Vol]131 mmol/LCritically lgp698-734Oel [facility] CenterComment on above:Performed By: #### BMP ####[facility] O[address]otxsopf[address] [place] [address]Dr. Yilan ChangUrea nitrogen [Mass/Vol]40.0 mg/dLCritically high7.0-18.0The [facility] CenterComment on above:Performed By: #### BMP ####[facility] Yxswhngkom3397[address] [place], [place] [address]Dr.Yilan ChangUrea nitrogen/Creatinine [Mass ratio]27.8 mg/mgNormalThe [facility] CenterComment on above:Performed By: #### BMP ####[facility] Ovqzjeinsj006[address] [place], [place] [address]Dr.Yilan ChangAnion gap [Moles/Vol]10.6 mmol/LNormal The [facility] CenterComment on above:Performed By: #### BMP ####[facility] Nqrmftxdxs7936[address] [place], [place] [address]Dr.Yilan Tripathi Calcium [Mass/Vol]7.9 mg/dLCritically low8.5-10.1The [facility] CenterComment on above:Performed By: #### BMP ####[facility] Zthhhcytew7901[address] [place], [place] [address]Dr.Yilan ChangChloride [Moles/Vol]101 mmol/LNormal 98-107The [facility] CenterComtr[facility] on above:Performed By: #### BMP ####[facility] Yfwksqpvlw8295[address] [place], [place] [address]Dr.Yilan ChangCO2 [Moles/Vol]27.4 mmol/OLdxiut77.0-32.0The [facility] CenterComment on above: Performed By: #### BMP ####[facility] Tqitozcpxa2313[address] [place], [place] [address]Dr.Yilan ChangCreatinine [Mass/Vol]1.35 mg/dL Critically high0.55-1.02The [facility] CenterComment on above:Performed By: #### BMP ####[facility] Nqukqnjcsn5654[address] [place], [place] [address]Dr.Yilan ChangEGFR-AF HQYDHGFI36 mL/min/1.30v5Esmfpptwdj low>=60The [facility] CenterComment on above:Performed By: #### BMP ####[facility] [address]jtrm[address] [place] [address]Dr.Yilan ChangEGFR-NON AF SMTRZNNZ10 mL/min/1.34z2Vbwwabemdz low>=60The [facility] CenterComment on above: Performed By: #### BMP ####[facility] Grypmijsro[address] [place] [address]Dr.Yilan ChangGlucose [Mass/Vol]114 mg/dLCritically abkk12-266Wps [facility] CenterComment on above:Performed By: #### BMP ####[facility] Jwmqqhicnl0120[address] [place], [place] [address]Dr. Yilan ChangPotassium [Moles/Vol]5.0 mmol/LNormal3.5-5.1The [facility] Comment on above:Performed By: #### BMP ####[facility] Nleljtwzxa9737[address] [place], [place] [address]Dr.Yilan ChangSodium [Moles/Vol]134 mmol/L Critically tpg738-700Miu [facility] CenterComment on above:Performed By: #### BMP ####[facility] Exsghchvhz0979[address] [place], [place] [address]Dr. Selenaneil ChangUrea nitrogen [Mass/Vol]40.0 mg/dLCritically high7.0-18.0The [facility] CenterComment on above:Performed By: #### BMP ####[facility] Ueupyfdjuz69[address] [place], [place] [address]Dr.Yilan ChangUrea nitrogen/Creatinine [Mass ratio]29.6 mg/mgNormalThe [facility] CenterComment on above:Performed By: #### BMP ####[facility] Uhhtkxeycu8634[address] [place], [place] [address]Dr.Airam TripathiPTH INTACTon 47-61-8653CRF, Ilsdrv691 pg/mLCritically ritr94-61Dxk [facility] CenterComment on above:Performed By: #### PTHINT ####[facility] Zgdhbewzat[address] [place], [place] [address]Dr. Airam TripathiBNPon 63-14-6621Khnmfouuvdl peptide B (Bld) [Mass/Vol]1272.0 pg/mLCritically high<=900.0The [facility] CenterComment on above:Performed By: #### HSTROPN, TSH, K, BNP ####[facility] Rxcsudqfvx[address] [place] [address]Dr. Airam ChangCBC AUTO DIFFon 58-90-7939CBRL #0.0 103/ulNormal0.0-0.1The [facility] CenterComment on above:Performed By: #### CBC ####[facility] Rmoglglhgm7186[address] [place], [place] [address]Dr. Airam ChangBasophils/100 WBC (Bld)0.5 %Normal0.2-2.0The [facility] CenterComment on above:Performed By: #### CBC ####[facility] Zkhxhadbcn1224[address] [place], [place] [address]Dr.Yilan ChangEO #0.2 103/ulNormal0.0-0.7The [facility] CenterComment on above:Performed By: #### CBC ####[facility] Wpstivhyav6608[address] [place], [place] [address]Dr.Airam ChangEosinophils/100 WBC (Bld)2.6 %Normal0.9-7.0The [facility] Hospitalment on above:Performed By: #### CBC ####[facility] Pftyrbgvkw6520[address] [place], [place] [address]Dr.Airam ChangErythrocyte distribution width (RBC) [Ratio]15.5 %Critically high11.0-15.0The [facility] CenterComment on above:Performed By: #### CBC ####[facility] Ixfxhrtlxd5589[address] [place], [place] [address]Dr. Airam ChangHematocrit (Bld) [Volume fraction]31.1 %Critically low36.0-48.0The [facility] CenterComment on above:Performed By: #### CBC ####[facility] Hkfvgzmobt828[address] [place], [place] [address]Dr.Airam ChangHemoglobin (Bld) [Mass/Vol]9.6 g/dLCritically low12.0-16.0The [facility] CenterComment on above:Performed By: #### CBC ####[facility] Flllxhhgee058[address] [place], [place] [address]Dr.Airam TripathiIG #0.04 10e3/ulCritically high0.00-0.03 The [facility] HospitalComment on above:Performed By: #### CBC ####[facility] Styrmywanb[address] [place], [place] [address]Dr.Airam TripathiIG % 0.5 %Normal0.0-0.5The [facility] HospitalComment on above:Performed By: #### CBC ####[facility] Vyefgxggkl5198[address] [place], [place] [address]Dr. Airam TripathiLYMPH #1.0 103/ulCritically low1.2-3.8The [facility] CenterComment on above:Performed By: #### CBC ####[facility] Qjcgflvzaq8617[address] [place], [place] [address]Dr.Airam Dossmphocytes/100 WBC (Bld)12.0 % Critically low20.5-60.0The [facility] CenterComment on above:Performed By: #### CBC ####[facility] Awoxnskomm3784[address] [place], [place] [address]Dr. Airam TripathiMANUAL DIFF REQNONormalThe [facility] CenterComment on above: Performed By: #### CBC ####[facility] Etwzqwftox828[address] [place], [place] [address]Dr.Airam TripathiMEDISYS HEALTH NETWORK (RBC) [Entitic mass]28.2 pgNormal 26.7-34.0The [facility] CenterComment on above:Performed By: #### CBC ####[facility] Kfxsysqjow5707[address] [place], [place] [address]Dr. Airam TripathiHC (RBC) [Mass/Vol]30.9 g/fNYvvaon81.9-35.2The [facility] Comment on above:Performed By: #### CBC ####[facility] Akqzpmtxtb5634[address] [place], [place] [address]Dr.Airam TripathiMCV (RBC) [Entitic vol]91.5 fL Vlmuhm84.0-99.0The [facility] CenterComment on above:Performed By: #### CBC ####[facility] Bcxloadtqx5574[address] [place], [place] [address]Dr. Airam TripathiMONO #0.5 103/ulNormal0.3-0.8The [facility] CenterComment on above: Performed By: #### CBC ####[facility] Uvdvqtmedq5230[address] [place], [place] [address]Dr.Airam TripathiMonocytes/100 WBC (Bld)6.4 %Normal 1.7-12.0The [facility] CenterComment on above:Performed By: #### CBC ####[facility] Tccbvzrazb1994[address] [place], [place] [address]Dr. Airam TripathiNEUT #6.4 103/ulNormal1.4-6.5The [facility] CenterComment on above: Performed By: #### CBC ####[facility] Ytfopggtrs[address] [place], [place] [address]Dr.Airam TripathiNeutrophils/100 WBC (Bld)78.0 % Critically high43.0-75.0The [facility] CenterComment on above:Performed By: #### CBC ####[facility] Btkyvdcbsq4464[address] [place], [place] [address]Dr. Airam TripathiPlatelet mean volume (Bld) [Entitic vol]9.1 fLCritically low9.5-13.5 The [facility] CenterComment on above:Performed By: #### CBC ####[facility] Ougfiypkxk0112[address] [place], [place] [address]Dr.Airam SflmcLRL898 103/hiUrqnmt483-663Ewg [facility] CenterComment on above:Performed By: #### CBC ####[facility] Bimbmmbitd3118[address] [place], [place] [address]Dr. Airam ChangRBC3.40 106/ulCritically low4.20-5.40The [facility] CenterComment on above:Performed By: #### CBC ####[facility] Elrazhwcbo[address] [place] [address].Airam ChangWBC8.2 103/ulNormal4.0-11.0The [facility] CenterComment on above:Performed By: #### CBC ####[facility] [address]jory[address] [place] [address]Dr.Airam TripathiCovid-19 PCR (CVDTBH)on 01-58-0547YZHF-CoV-2 (COVID-19) RNA MIKE+probe Ql (Unsp spec)Not detectedNormalNOT DETECTEDThe [facility] CenterComment on above:Result Comment: When diagnostic [...] for this test is supported by the [place] of [employer] and [employer] Service's declaration that [...] no longer be used).Performed By: #### CVDTBH ####[facility] Qrqzmidqpn[address] [place] [address]Dr. Airam ChangLACTATE/LACTIC ACIDon 16-79-4086Embkyro [Moles/Vol]0.4 mmol/LNormal0.4-2.0The [facility] CenterComment on above:Performed By: #### LACT ####[facility] Dihxatwuso4244[address] [place], [place] [address]Dr. Airam ChangPOTASSIUMon 45-27-3802Wmrcmcchk [Moles/Vol]6.3 mmol/LCritically high 3.5-5.1The [facility] CenterComment on above:Performed By: #### HSTROPN, TSH, K, BNP ####[facility] [address]xxtaynf[address] [place] [id number]. Yilan ChangPROF 14(COMP METB)on 12-87-7948Fyjfyfw [Mass/Vol]3.5 g/dL Normal3.4-5.0The [facility] CenterComment on above:Performed By: #### CMP ####[facility] Txfdxjjfpj[address] [place] [address]Dr. Yilan ChangAlbumin/Globulin [Mass ratio]1.1 {ratio}NormalThe [facility] Comment on above:Performed By: #### CMP ####[facility] Ypdesnnbkg8686[address] [place], [place] [address]Dr.Yilan ChangALP [Catalytic activity/Vol] 113 U/BQcdlqe72-305Dsb [facility] CenterComment on above:Performed By: #### CMP ####[facility] Ucsqrehfya[address] [place] [address]Dr. Yilan ChangALT [Catalytic activity/Vol]26 U/WDjusgn50-06Cjc [facility] Comment on above:Performed By: #### CMP ####[facility] Hnatnluskk6712[address] [place], [place] [address]Dr.Yilan ChangAnion gap [Moles/Vol]11.5 mmol/LNormalThe [facility] CenterComment on above:Performed By: #### CMP ####[facility] Xugjhswvyf[address] [place], [place] [address]Dr. Yilan ChangAST [Catalytic activity/Vol]24 U/ERqbzkv74-81Bkk [facility] Comment on above:Performed By: #### CMP ####[facility] Otqtshqvof9144[address] [place], [place] [address]Dr.Yilan ChangBilirubin [Mass/Vol]0.3 mg/dL Normal0.2-1.0The [facility] CenterComment on above:Performed By: #### CMP ####[facility] Vsddsbcevy[address] [place], [place] [address]Dr. Yilan ChangCalcium [Mass/Vol]8.9 mg/dLNormal8.5-10.1The [facility] HospitalComment on above:Performed By: #### CMP ####[facility] [address]dlusaxian[address] [place] [address]Dr.Yilan ChangChloride [Moles/Vol]103 mmol/LNormal 98-107The [facility] CenterComment on above:Performed By: #### CMP ####[facility] Medbljjnnp0968[address] [place], [place] [address]Dr.Yilan ChangCO2 [Moles/Vol]27.8 mmol/ZOyskvp85.0-32.0The [facility] CenterComment on above: Performed By: #### CMP ####[facility] Rojgngpsom2209[address] [place], [place] [address]Dr.Yilan ChangCreatinine [Mass/Vol]1.28 mg/dL Critically high0.55-1.02The [facility] CenterComment on above:Performed By: #### CMP ####[facility] Kqdrdkysmg1299[address] [place], [place] [address]Dr.Yilan ChangEGFR-AF ZEETUXWE35 mL/min/1.67t5Obbygcgvsk low>=60The [facility] CenterComment on above:Performed By: #### CMP ####[facility] Kmuzwfbklc5349[address] [place], [place] [address]Dr.Yilan ChangEGFR-NON AF GNLRQUUQ37 mL/min/1.31k3Hojsbmexfm low>=60The [facility] Hospitalment on above: Performed By: #### CMP ####[facility] Cejyvihicn9460[address] [place], [place] [address]Dr.Yilan ChangGlobulin (S) [Mass/Vol]3.2 g/dLNormalThe [facility] CenterComment on above:Performed By: #### CMP ####[facility] Cmqiywdrhr360[address] [place], [place] [address]Dr.Yilan ChangGlucose [Mass/Vol]95 mg/dPDiuehv19-220Ong [facility] CenterComment on above:Performed By: #### CMP ####[facility] Njsfmqjdjp8939[address] [place], [place] [address]Dr.Yilan ChangPotassium [Moles/Vol]6.3 mmol/LCritically high3.5-5.1The [facility] CenterComment on above:Performed By: #### CMP ####[facility] Dpoovxawxf[address] [place] [address]Dr.Yilan ChangProtein [Mass/Vol]6.7 g/dLNormal6.4-8.2The [facility] CenterComment on above:Performed By: #### CMP ####[facility] Dauynhntki9[address] [place], [place] [address]Dr.Yilan ChangSodium [Moles/Vol]135 mmol/LCritically gpu335-115Bys [facility] CenterComment on above:Performed By: #### CMP ####[facility] Qvgiitdsfm1611[address] [place], [place] [address]Dr.Yilan ChangUrea nitrogen [Mass/Vol]42.0 mg/dLCritically high7.0-18.0The [facility] CenterComment on above:Performed By: #### CMP ####[facility] Abfoujbjdu5389[address] [place], [place] [address]Dr.Yilan ChangUrea nitrogen/Creatinine [Mass ratio] 32.8 mg/mgNormalThe [facility] CenterComment on above:Performed By: #### CMP ####[facility] Lrduqfgsma7640[address] [place], [place] [address]Dr. Airam TripathiTROPONIN, HIGH SENSITIVITYon 11-66-6083NLFCPC8.1 pg/mLNormal4.0-51.3 The [facility] CenterComtr[facility] on above:Result Comment: CUT-OFF POINTS HAVE BEEN ESTABLISHED BASED ON THE FOURTH UNIVERSAL DEFINITIONS OF MYOCARDIALINFARCTION. THE UPPER REFERENCE LIMIT (URL) OF TROPONIN, DEFINED THE 99TH PERCENTILE OFcT nI DISTRIBUTION IN A REFERENCE POPULATION, HAS BEEN CONFIRMED THE DECISION THRESHOLDFOR UT DIAGNOSIS.Performed By: #### HSTROPN, TSH, K, BNP ####[facility] Zhyttkpncy[address] [place], [place] [address]Dr. Selenaneil TripathiTSHon 46-99-1518ZPH8.028 uIU/mLCritically low0.358-3.740The [facility] CenterComment on above:Performed By: #### HSTROPN, TSH, K, BNP ####[facility] [address]df[address]hiphx[address] [place] [address]Dr. Airam TripathiUA RANDOMon 11-01-2557Gvmbyfnhz Ql (U)NegativeNormalNEGATIVEAcmc Healthcare System Glenbeigh HospitalComment on above:Performed By: #### UA ####[facility] J[address]hggqqzt[address] [place] [address]Dr. Yilan ChangClarity (U)CLEARNormalCLEARThe [facility] HospitalComment on above:Performed By: #### UA ####[facility] Lwssbrantk25[address] [place], [place] [address]Dr. Yilan ChangColor (U)LT. YELLOWNormalYELLOWAcmc Healthcare System Glenbeigh HospitalComment on above:Performed By: #### UA ####[facility] Vkcwowtikr[address] [place], [place] [address]Dr. Y grayson ChangGlucose Ql (U)NegativeNormalNEGATIVEAcmc Healthcare System Glenbeigh HospitalComment on above:Performed By: #### UA ####[facility] Yckkstsovj[address] [place], [place] [address]Dr. Yilan ChangHemoglobin Ql (U)NegativeNormalNEGATIVE The [facility] HospitalComment on above:Performed By: #### UA ####[facility] Wjhzstudge7866[address] [place], [place] [address]Dr. Yilan Tripathi Ketones Ql (U)NegativeNormalNEGATIVEAcmc Healthcare System Glenbeigh HospitalComment on above: Performed By: #### UA ####[facility] Bsawojriiy26[address] [place], [place] [address]Dr. Yilan ChangLEUKOCYTESTRACEAbnormalNEGATIVEAcmc Healthcare System Glenbeigh HospitalComment on above:Performed By: #### UA ####[facility] Auortfthon[address] [place], [place] [address]Dr. Yilan ChangNitrite Ql (U) NegativeNormalNEGATIVEAcmc Healthcare System Glenbeigh HospitalComment on above:Performed By: #### UA ####[facility] Ktresdiuys[address] [place], [place] [address]Dr. Yilan ChangpH (U)5.5 [pH]Normal5-9The [facility]net HospitalComment on above: Performed By: #### UA ####[facility] Hyujzaimsl6[address] [place], [place] [address]Dr. Airam TripathiSPEC GRAVITY1.411Bycgjq4.005-<=1.025The [facility] CenterComment on above:Performed By: #### UA ####[facility] Czltragdan24[address] [place], [place] [address]Dr. Airam ChangUA PROTEIN NegativeNormalNEGATIVE/ TRACEThe [facility] CenterComment on above:Performed By: #### UA ####[facility] Adeyiczgxl6214[address] [place], [place] [address]Dr. Airam ChangUrobilinogen Qn (U)0.2 {Ligia'U}/dLNormal0.2 - 1.0The [facility] CenterComment on above:Performed By: #### UA ####[facility] Nwrnrbrztd1016[address] [place], [place] [address]Dr. Airam ChangURIC ACID SERUMon [id number] [Mass/Vol]6.9 mg/dLCritically high2.6-6.0The [facility] CenterComment on above:Performed By: #### URIC ####[facility] Fpbvijuvkt[address] [place], [place] [address]Dr. Airam TripathiURINE T PROTEIN CREAT RATIOon 88-95-4109YI TOTAL PROTEIN<6.0Normal<=12.0The [facility] CenterComment on above:Performed By: #### URTPCR ####[facility] Dmfjeclsku8857[address] [place], [place] [address]Dr. Selenalan ChangURINE CREAT 15.12 mg/dLCritically low20.00-300.00The [facility] CenterComment on above: Performed By: #### URTPCR ####[facility] Pwctxemjtz4064[address] [place], [place] [address]Dr. Selenalan ChangVITAMIN D 25 OHon 29-53-2236IHX D 25-OH 75.9 ng/mLNormalThe [facility] CenterComment on above:Performed By: #### VITAD ####[facility] Dfjcvlctgd6[address] [place], [place] [address]Dr. Airam Maria RANGESSEE BELOWFirelands Regional Medical CenterComment on above: Result Comment: <20 ng/mL Vit D deficient 20 - <30 ng/mL Vit D insufficient 30 - 100 ng/mL Vit D sufficient >100 ng/mL Potential ToxicityPerformed By: #### VITAD ####[facility] Qhxofurtyl6946[address] [place], [place] [address]Dr. Airam TripathiOSMOLALITYon 18-40-7797Upwweiczsn [Osmolality]272 mosm/kg Critically xns899-199Jwc [facility] CenterComment on above:Performed By: #### OSMO ####[facility] Veowzrtcno8517[address] [place], [place] [address]Dr. Airam TripathiCBC AUTO DIFFon 21-10-6627DSTJ #0.0 103/ulNormal0.0-0.1H[facility] Community HospitalComment on above:Performed By: #### CBC ####[facility] Gkvqnkneoc7629[address] [place], [place] [address]Dr.Airam TripathiBasophils/100 WBC (Bld)0.5 %Normal0.2-2.0The [facility] CenterComment on above:Performed By: #### CBC ####[facility] Kmrtahwhvd[address] [place], [place] [address]Dr.Airam ChangEO #0.2 103/ulNormal0.0-0.7The [facility] CenterComtrinity health [facility] on above:Performed By: #### CBC ####[facility] Pzhsfvjnqq4684[address] [place], [place] [address]Dr.Airam ChangEosinophils/100 WBC (Bld)2.4 %Normal 0.9-7.0The [facility] CenterComment on above:Performed By: #### CBC ####[facility] Utgxrplkuy880[address] [place], [place] [address]Dr.Airam Tripathi Erythrocyte distribution width (RBC) [Ratio]14.8 %Yboroy95.0-15.0The [facility] CenterComment on above:Performed By: #### CBC ####[facility] Ebrblivhbu1296[address] [place], [place] [address]Dr.Selenaneil DeuceHematocrit (Bld) [Volume fraction]32.6 %Critically low36.0-48.0The [facility] CenterComment on above:Performed By: #### CBC ####[facility] Byykfqphce3946[address] [place], [place] [address]Dr.Airam ChangHemoglobin (Bld) [Mass/Vol]10.1 g/dL Critically low12.0-16.0The [facility] CenterComment on above:Performed By: #### CBC ####[facility] Trqqaymzyj4095[address] [place], [place] [address]Dr. Selenalan ChangIG #0.05 10e3/ulCritically high0.00-0.03The [facility] CenterComment on above:Performed By: #### CBC ####[facility] Iuwxcpnkkw7157[address] [place], [place] [address]Dr.Airam ChangIG %0.7 %Critically high0.0-0.5The [facility] CenterComment on above:Performed By: #### CBC ####[facility] Ntsgqtrwfn9[address] [place], [place] [address]Dr.Airam ChangLYMPH #1.9 103/ulNormal1.2-3.8The [facility] CenterComment on above:Performed By: #### CBC ####[facility] Rdsxqwlnwb075[address] [place], [place] [address]Dr. Airam TripathiLymphocytes/100 WBC (Bld)24.7 %Holxxj14.5-60.0The [facility] Comment on above:Performed By: #### CBC ####[facility] Uxbjpapvnh8896[address] [place], [place] [address]Dr.Airam ChangMANUAL DIFF REQNONormalThe [facility] CenterComment on above:Performed By: #### CBC ####[facility] Ueufayxykg444[address] [place], [place] [address]Dr.Airam TripathiMCH (RBC) [Entitic mass]28.0 hcQesnvz84.7-34.0The [facility] CenterComment on above: Performed By: #### CBC ####[facility] [address]xygu[address] [place] [address]Dr.Airam DeuceMCHC (RBC) [Mass/Vol]31.0 g/dLNormal 29.9-35.2The [facility] CenterComment on above:Performed By: #### CBC ####[facility] Tfhtdrywbw44[address] [place] [address]Dr. Airam DeuceMCV (RBC) [Entitic vol]90.3 hLMojdap59.0-99.0The [facility] Comment on above:Performed By: #### CBC ####[facility] Pqupshqplb2736[address] [place], [place] [address]Dr.Selenaneil TripathiMONO #0.5 103/ulNormal0.3-0.8 The [facility] CenterComment on above:Performed By: #### CBC ####[facility] Rolsqrgixv6420[address] [place], [place] [address]Dr.Selenaneil Tripathi Monocytes/100 WBC (Bld)6.0 %Normal1.7-12.0The [facility] CenterComment on above: Performed By: #### CBC ####[facility] Osealobguz0146[address] [place], [place] [address]Dr.Airam TripathiNEUT #5.0 103/ulNormal1.4-6.5The [facility] CenterComment on above:Performed By: #### CBC ####[facility] Jwhyfaxvly5899[address] [place], [place] [address]Dr.Airam DeuceNeutrophils/100 WBC (Bld)65.7 %Xkqrzo30.0-75.0The [facility] CenterComment on above:Performed By: #### CBC ####[facility] Ckswyjctfh549[address] [place], [place] [address]Dr.Selenaneil TripathiPlatelet mean volume (Bld) [Entitic vol]9.5 fLNormal9.5-13.5 The [facility] CenterComment on above:Performed By: #### CBC ####[facility] Tqshxgjzai9989[address] [place], [place] [address]Dr.Airam TripathiPLT307 103/aaMmiijd358-658Hsd [facility] HospitalComment on above:Performed By: #### CBC ####[facility] F[address]zvlnxdz[address] [place] [address]Dr. Airam TripathiRBC3.61 106/ulCritically low4.20-5.40The [facility] CenterComment on above:Performed By: #### CBC ####[facility] Ijikvrugoo[address] [place] [address]Dr.Airam ChangWBC7.5 103/ulNormal4.0-11.0The [facility] CenterComment on above:Performed By: #### CBC ####[facility] Obpomltkqn74[address] [place] [address]Dr.Airam TripathiPROF 14(COMP METB)on 58-82-2954Ihsziuq [Mass/Vol]3.5 g/dLNormal3.4-5.0[facility] Comment on above:Performed By: #### CMP ####[facility] Ptmnduhgzx5716[address] [place], [place] [address]Dr.Airam ChangAlbumin/Globulin [Mass ratio] 1.1 {ratio}NormalThe [facility] CenterComment on above:Performed By: #### CMP ####[facility] Igixsrqxdi9645[address] [place], [place] [address]Dr. Airam TripathiALP [Catalytic activity/Vol]126 U/LCritically qwdt03-845Bik [facility] CenterComment on above:Performed By: #### CMP ####[facility] Afcldazoqy7688[address] [place], [place] [address]Dr.Airam ChangALT [Catalytic activity/Vol]18 U/SJwtxor73-63Vtr [facility] CenterComment on above:Performed By: #### CMP ####[facility] Ijqewfsvoi882[address] [place], [place] [address]Dr.Airam TripathiAnion gap [Moles/Vol]11.1 mmol/LNormalThe [facility] Comment on above:Performed By: #### CMP ####[facility] Nagfhokybf2088[address] [place], [place] [address]Dr.Airam ChangAST [Catalytic activity/Vol]26 U/LJpqmkm09-83Twj [facility] CenterComment on above:Performed By: #### CMP ####[facility] Aleyiguzhw1278[address] [place], [place] [address]Dr. Yilan ChangBilirubin [Mass/Vol]0.3 mg/dLNormal0.2-1.0The [facility] Comment on above:Performed By: #### CMP ####[facility] Oudpyvysgh6664[address] [place], [place] [address]Dr.Yilan ChangCalcium [Mass/Vol]8.5 mg/dL Normal8.5-10.1The [facility] CenterComment on above:Performed By: #### CMP ####[facility] Bsqnkjxlhn2817[address] [place], [place] [address]Dr. Yilan ChangChloride [Moles/Vol]98 mmol/YIogukr79-234Vap [facility] CenterComment on above:Performed By: #### CMP ####[facility] Qxfseozdzh930[address] [place], [place] [address]Dr.Yilan ChangCO2 [Moles/Vol]23.9 mmol/LNormal 21.0-32.0The [facility] CenterComment on above:Performed By: #### CMP ####[facility] Qkypwxyrvm076[address] [place], [place] [address]Dr. Yilan ChangCreatinine [Mass/Vol]1.40 mg/dLCritically high0.55-1.02The [facility] CenterComment on above:Performed By: #### CMP ####[facility] Qlmkutvwpe4734[address] [place], [place] [address]Dr.Yilan ChangEGFR-AF SGATLAMM45 mL/min/1.09f3Bzwyioryvu low>=60The [facility] CenterComment on above: Performed By: #### CMP ####[facility] Jriimgvahf8160[address] [place], [place] [address]Dr.Yilan ChangEGFR-NON AF CWAYCZMV36 mL/min/1.73m2 Critically low>=60The [facility] CenterComment on above:Performed By: #### CMP ####[facility] Ptcwnlewdv2517[address] [place], [place] [address]Dr. Yilan ChangGlobulin (S) [Mass/Vol]3.3 g/dLNoGlenbeigh HospitalComment on above:Performed By: #### CMP ####[facility] Mubxqggxpf4549[address] [place], [place] [address]Dr.Selenaneil ChangGlucose [Mass/Vol]72 mg/dLCritically low 74-106The [facility] CenterComment on above:Performed By: #### CMP ####[facility] Hlzhxdhpzv769[address] [place], [place] [address]Dr.Selenaneil Tripathi Potassium [Moles/Vol]5.0 mmol/LNormal3.5-5.1The [facility] CenterComment on above:Performed By: #### CMP ####[facility] Gzjflqyxxb4175[address] [place], [place] [address]Dr.Selenaneil ChangProtein [Mass/Vol]6.8 g/dLNormal6.4-8.2 The [facility] CenterComment on above:Performed By: #### CMP ####[facility] Ixbrfzeznu5455[address] [place], [place] [address]Dr.Airam ChangSodium [Moles/Vol]128 mmol/LCritically mmt014-146Wln [facility] CenterComment on above:Performed By: #### CMP ####[facility] Btitxmfkid8249[address] [place], [place] [address]Dr.Selenaneil ChangUrea nitrogen [Mass/Vol]27.0 mg/dL Critically high7.0-18.0The [facility] CenterComment on above:Performed By: #### CMP ####[facility] Hivxsofrzp4427[address] [place], [place] [address]Dr. Selenalan ChangUrea nitrogen/Creatinine [Mass ratio]19.3 mg/mgNoGlenbeigh HospitalComment on above:Performed By: #### CMP ####[facility] Fociichgsh0897[address] [place], [place] [address]Dr.Airam ChangOSMOLALITYon 00-84-1653Qinlegyhzk [Osmolality]275 mosm/noWpfgck555-839Yve [facility] Comment on above:Performed By: #### OSMO ####[facility] U[address]cwax[address] [place] [address]Dr. Airam TripathiCBC AUTO DIFFon 09-08-2022 BASO #0.0 103/ulNormal0.0-0.1The [facility] CenterComment on above:Performed By: #### CBC ####[facility] Jllprfircb1894[address] [place], [place] [address]Dr.Selenalan ChangBasophils/100 WBC (Bld)0.5 %Normal0.2-2.0The [facility] CenterComment on above:Performed By: #### CBC ####[facility] Iodopzdfmn1374[address] [place], [place] [address]Dr.Selenalan ChangEO #0.1 103/ul Normal0.0-0.7The [facility] CenterComment on above:Performed By: #### CBC ####[facility] Krnpufprjg8146[address] [place], [place] [address]Dr. Airam ChangEosinophils/100 WBC (Bld)1.7 %Normal0.9-7.0The [facility] Comment on above:Performed By: #### CBC ####[facility] Fxobybtxxz778[address] [place], [place] [address]Dr.Airam ChangErythrocyte distribution width (RBC) [Ratio]14.7 %Otowrx44.0-15.0The [facility] CenterComment on above: Performed By: #### CBC ####[facility] Mcpndtyzpo0760[address] [place], [place] [address]Dr.Airam ChangHematocrit (Bld) [Volume fraction]30.3 % Critically low36.0-48.0The [facility] CenterComment on above:Performed By: #### CBC ####[facility] Dcznjnblct080[address] [place], [place] [address]Dr. Airam ChangHemoglobin (Bld) [Mass/Vol]9.3 g/dLCritically low12.0-16.0The [facility] CenterComment on above:Performed By: #### CBC ####[facility] Qceccjbsxb919[address] [place], [place] [address]Dr.Selenalan ChangIG #0.03 10e3/ulNormal0.00-0.03The [facility] CenterComment on above:Performed By: #### CBC ####[facility] Dytxowiery69[address] [place] [address]Dr. Airam TripathiIG %0.5 %Normal0.0-0.5The [facility] CenterComment on above:Performed By: #### CBC ####[facility] Rktmsmzgss235[address] [place], [place] [address]Dr.Airam TripathiLYMPH #0.9 103/ulCritically low1.2-3.8The [facility] CenterComment on above:Performed By: #### CBC ####[facility] Ipvqkfxwpx0475[address] [place], [place] [address]Dr.Airam TripathiLymphocytes/100 WBC (Bld)13.6 %Critically low20.5-60.0The [facility] CenterComment on above: Performed By: #### CBC ####[facility] Glflzgnmbx7375[address] [place], [place] [address]Dr.Airam TripathiMANUAL DIFF REQNONormalThe [facility] CenterComment on above:Performed By: #### CBC ####[facility] Rwbsuahsni8679[address] [place], [place] [address]Dr.Airam TripathiH (RBC) [Entitic mass]27.4 keGgkuqj64.7-34.0The [facility] CenterComment on above: Performed By: #### CBC ####[facility] Gwwbnzetyt7985[address] [place], [place] [address]Dr.Airam TripathiHC (RBC) [Mass/Vol]30.7 g/dLNormal 29.9-35.2The [facility] CenterComment on above:Performed By: #### CBC ####[facility] Futnvoicfa24023[address] [place], [place] [address]Dr. Airam TripathiV (RBC) [Entitic vol]89.4 pOLtufms22.0-99.0[facility] Comment on above:Performed By: #### CBC ####[facility] Maxcpzngul6620[address] [place], [place] [address]Dr.Airam TripathiMONO #0.5 103/ulNormal0.3-0.8 The [facility] CenterComment on above:Performed By: #### CBC ####[facility] Tqyoklhgcc435[address] [place], [place] [address]Dr.Airam Tripathi Monocytes/100 WBC (Bld)8.0 %Normal1.7-12.0The [facility] CenterComment on above: Performed By: #### CBC ####[facility] Okylylxkfj1055[address] [place], [place] [address]Dr.Airam ChangNEUT #5.0 103/ulNormal1.4-6.5The [facility] HospitalComment on above:Performed By: #### CBC ####[facility] Qerlkbnqdw164[address] [place], [place] [address]Dr.Airam TripathiNeutrophils/100 WBC (Bld)75.7 %Critically high43.0-75.0The [facility] CenterComment on above: Performed By: #### CBC ####[facility] Ceipvwascr0685[address] [place], [place] [address]Dr.Airam TripathiPlatelet mean volume (Bld) [Entitic vol] 10.4 fLNormal9.5-13.5The [facility] CenterComment on above:Performed By: #### CBC ####[facility] Duqnnwiyep6754[address] [place], [place] [address]Dr. Airam NwepzGQS986 103/wwYlarny702-552Ijm [facility] CenterComment on above: Performed By: #### CBC ####[facility] Aiiiyoybky1311[address] [place], [place] [address]Dr.Airam ChangRBC3.39 106/ulCritically low4.20-5.40The [facility] CenterComment on above:Performed By: #### CBC ####[facility] Otsfifmtmg235[address] [place], [place] [address]Dr.Airam ChangWBC6.5 103/ul Normal4.0-11.0The [facility] CenterComment on above:Performed By: #### CBC ####[facility] Gkpahhnfqj57[address] [place], [place] [address]Dr. Yilan ChangPROF 14(COMP METB)on 54-54-5707Nhqmjsw [Mass/Vol]3.1 g/dLCritically low3.4-5.0The [facility] CenterComment on above:Performed By: #### CMP ####[facility] Axycicwltx[address] [place] [address]Dr. Yilan ChangAlbumin/Globulin [Mass ratio]1.0 {ratio}NormalThe [facility] Comment on above:Performed By: #### CMP ####[facility] Mzpcgdljsy54[address] [place] [address]Dr.Yilan ChangALP [Catalytic activity/Vol] 126 U/LCritically dtyc23-302Ibr [facility] CenterComment on above:Performed By: #### CMP ####[facility] Bnonrdqjgq6648[address] [place], [place] [address]Dr.Yilan ChangALT [Catalytic activity/Vol]18 U/BXriyur00-97Wkx [facility] CenterComment on above:Performed By: #### CMP ####[facility] Ibcggnmgqp359[address] [place], [place] [address]Dr.Yilan ChangAnion gap [Moles/Vol]11.4 mmol/LNormalThe [facility] CenterComment on above:Performed By: #### CMP ####[facility] Wfxirrxafk1185[address] [place], [place] [address]Dr.Yilan ChangAST [Catalytic activity/Vol]25 U/THcnwmt68-20Wru [facility] CenterComment on above:Performed By: #### CMP ####[facility] Jwfmqdtcgh198[address] [place], [place] [address]Dr.Yilan ChangBilirubin [Mass/Vol]0.3 mg/dLNormal0.2-1.0The [facility] CenterComment on above:Performed By: #### CMP ####[facility] Jmefbvozpx684[address] [place], [place] [address]Dr.Yilan ChangCalcium [Mass/Vol]8.6 mg/dLNormal8.5-10.1The [facility] CenterComment on above:Performed By: #### CMP ####[facility] Lnoepbwers2360[address] [place], [place] [address]Dr.Yilan ChangChloride [Moles/Vol]97 mmol/LCritically fxd38-079Obp [facility] CenterComment on above: Performed By: #### CMP ####[facility] Yclhxiupfn285[address] [place], [place] [address]Dr.Yilan ChangCO2 [Moles/Vol]26.1 mmol/LNormal 21.0-32.0The [facility] CenterComment on above:Performed By: #### CMP ####[facility] Aiavmukyaf6269[address] [place], [place] [address]Dr. Yilan ChangCreatinine [Mass/Vol]1.07 mg/dLCritically high0.55-1.02The [facility] CenterComment on above:Performed By: #### CMP ####[facility] Ggbzhectlw3158[address] [place], [place] [address]Dr.Yilan ChangEGFR-AF YEMENI>60Normal>=60The [facility] CenterComment on above:Performed By: #### CMP ####[facility] Dpuvdsvbuj[address] [place], [place] [address]Dr. Yilan ChangEGFR-NON AF QADLCKOR63 mL/min/1.33k1Kgqgluporw low>=60The [facility] CenterComment on above:Performed By: #### CMP ####[facility] Vbilalkgcu7026[address] [place], [place] [address]Dr.Yilan ChangGlobulin (S) [Mass/Vol]3.2 g/dLNormalThe [facility] CenterComment on above:Performed By: #### CMP ####[facility] Zjsbjwvfnz002[address] [place], [place] [address]Dr.Yilan ChangGlucose [Mass/Vol]83 mg/vSWhyblp29-030Tst [facility] Comment on above:Performed By: #### CMP ####[facility] Xsmotiswei5754[address] [place], [place] [address]Dr.Yilan ChangPotassium [Moles/Vol]5.5 mmol/LCritically high3.5-5.1The [facility] CenterComment on above:Performed By: #### CMP ####[facility] [address]zalfcy[address] [place] [address]Dr.Airam ChangProtein [Mass/Vol]6.3 g/dLCritically low6.4-8.2The [facility] CenterComment on above:Performed By: #### CMP ####[facility] Blnvnvqqbf324[address] [place], [place] [address]Dr.Selenalan ChangSodium [Moles/Vol]129 mmol/LCritically odp154-906Vnl [facility] CenterComment on above: Performed By: #### CMP ####[facility] Vcrgkwwqnp8747[address] [place], [place] [address]Dr.Selenalan ChangUrea nitrogen [Mass/Vol]37.0 mg/dL Critically high7.0-18.0The [facility] CenterComment on above:Performed By: #### CMP ####[facility] Taohmlkxfk1770[address] [place], [place] [address]Dr. Selenalan ChangUrea nitrogen/Creatinine [Mass ratio]34.6 mg/mgNormalThe [facility] CenterComment on above:Performed By: #### CMP ####[facility] Buqoqmeuxi4415[address] [place], [place] [address]Dr.Airam ChangOSMOLALITYon 50-76-0225Epvincwtni [Osmolality]279 mosm/piHmxtmz673-810Ixr [facility] Comment on above:Performed By: #### OSMO ####[facility] Bfxbvmpwii1901[address] [place], [place] [address]Dr. Airam TripathiCBC AUTO DIFFon 08-31-2022 BASO #0.0 103/ulNormal0.0-0.1The [facility] Hospitalment on above:Performed By: #### CBC ####[facility] Xvwxsqudgc7040[address] [place], [place] [address]Dr.Airam ChangBasophils/100 WBC (Bld)0.4 %Normal0.2-2.0The [facility] CenterComment on above:Performed By: #### CBC ####[facility] Eeislwondv7439[address] [place], [place] [address]Dr.Selenalan ChangEO #0.2 103/ul Normal0.0-0.7The [facility] CenterComment on above:Performed By: #### CBC ####[facility] Ulrthdftvf6288[address] [place], [place] [address]Dr. Airam ChangEosinophils/100 WBC (Bld)3.2 %Normal0.9-7.0The [facility] Comment on above:Performed By: #### CBC ####[facility] Fyjkwjdndx9904[address] [place], [place] [address]Dr.Airam ChangErythrocyte distribution width (RBC) [Ratio]14.4 %Tqdtrm44.0-15.0The [facility] HospitalComment on above: Performed By: #### CBC ####[facility] Bxlsmrjuro0212[address] [place], [place] [address]Dr.Airam ChangHematocrit (Bld) [Volume fraction]27.8 % Critically low36.0-48.0The [facility] CenterComment on above:Performed By: #### CBC ####[facility] Btmxjnyuxo8534[address] [place], [place] [address]Dr. Airam ChangHemoglobin (Bld) [Mass/Vol]8.7 g/dLCritically low12.0-16.0The [facility] CenterComment on above:Performed By: #### CBC ####[facility] Tnljjiwjwf7528[address] [place], [place] [address]Dr.Airam ChangIG #0.05 10e3/ulCritically high0.00-0.03The [facility] CenterComment on above:Performed By: #### CBC ####[facility] Nylsztjaer[address] [place], [place] [address]Dr.Airam ChangIG %0.7 %Critically high0.0-0.5The [facility] HospitalComment on above:Performed By: #### CBC ####[facility] Acwiaxpzev95[address] [place], [place] [address]Dr.Selenalan ChangLYMPH #1.7 103/ulNormal1.2-3.8The [facility] CenterComment on above:Performed By: #### CBC ####[facility] Kzfagjzlfq[address] [place], [place] [address]Dr.Airam TripathiLymphocytes/100 WBC (Bld)23.6 %Bbkjaj23.5-60.0The [facility] CenterComment on above:Performed By: #### CBC ####[facility] [address]odgsj[address] [place] [address]Dr.Airam TripathiMANUAL DIFF REQNONormalThe [facility] CenterComment on above:Performed By: #### CBC ####[facility] Frbqdjufua26[address] [place], [place] [address]Dr.Airam TripathiH (RBC) [Entitic mass]27.8 pgNormal 26.7-34.0The [facility] CenterComment on above:Performed By: #### CBC ####[facility] [facility] [address]vs[address] [place], [place] [address]Dr. Airam TripathiHC (RBC) [Mass/Vol]31.3 g/cGUphqyy97.9-35.2[facility] Comment on above:Performed By: #### CBC ####[facility] Fkormxjbos[address] [place], [place] [address]Dr.Airam TripathiV (RBC) [Entitic vol]88.8 fL Nmuuwz98.0-99.0The [facility] CenterComment on above:Performed By: #### CBC ####[facility] Tjszqrovan62[address] [place], [place] [address]Dr. Airam TripathiMONO #0.5 103/ulNormal0.3-0.8The [facility] CenterComment on above: Performed By: #### CBC ####[facility] Npnfflbron1934[address] [place], [place] [address]Dr.Airam TripathiMonocytes/100 WBC (Bld)6.9 %Normal 1.7-12.0The [facility] CenterComment on above:Performed By: #### CBC ####[facility] Xkhiuuybvc39[address] [place], [place] [address]Dr. Airam TripathiNEUT #4.7 103/ulNormal1.4-6.5The [facility] CenterComment on above: Performed By: #### CBC ####[facility] V[address]ubdo[address] [place] [address]Dr.Airam TripathiNeutrophils/100 WBC (Bld)65.2 %Normal 43.0-75.0The [facility] CenterComment on above:Performed By: #### CBC ####[facility] Wzkmqamjes[address] [place], [place] [address]Dr. Selenaneil DeucePlatelet mean volume (Bld) [Entitic vol]9.8 fLNormal9.5-13.5The [facility] CenterComment on above:Performed By: #### CBC ####[facility] Qdxcayrpjg[address] [place], [place] [address]Dr.Selenaneil TripathiSdaboQWT186 103/ul Fzzxnp994-678Ttb [facility] CenterComment on above:Performed By: #### CBC ####[facility] Embdcpzpnf216[address] [place], [place] [address]Dr. Airam TripathiRBC3.13 106/ulCritically low4.20-5.40The [facility] CenterComment on above:Performed By: #### CBC ####[facility] Uamceydrwy18[address] [place], [place] [address]Dr.Selenaneil TripathiWBC7.3 103/ulNormal4.0-11.0The [facility] CenterComment on above:Performed By: #### CBC ####[facility] Xkohayoadp9126[address] [place], [place] [address]Dr.Airam TripathiPROF 14(COMP METB)on 78-32-9360Tifxvbr [Mass/Vol]3.0 g/dLCritically low3.4-5.0The [facility] CenterComment on above:Performed By: #### CMP ####[facility] Ovnmrjwthx99[address] [place], [place] [address]Dr.Airam Tripathi Albumin/Globulin [Mass ratio]1.1 {ratio}NormalThe [facility] on above:Performed By: #### CMP ####[facility] Gnsbhowutq06[address] [place], [place] [address]Dr.Airam TripathiALP [Catalytic activity/Vol]132 U/L Critically obnl54-531Bdt [facility] CenterComment on above:Performed By: #### CMP ####[facility] Mgleaoohzy90[address] [place] [id number]. Yilan ChangALT [Catalytic activity/Vol]20 U/BWuqpyb21-51Ywi [facility] Comment on above:Performed By: #### CMP ####[facility] Owikgqedcy26[address] [place] [id number].Yilan ChangAnion gap [Moles/Vol]9.5 mmol/LNormalThe [facility] CenterComment on above:Performed By: #### CMP ####[facility] Bzckwknvfp[address] [place], [place] [address]Dr. Yilan ChangAST [Catalytic activity/Vol]25 U/PWtrrfh23-28Qov [facility] Comment on above:Performed By: #### CMP ####[facility] Xtyxhgvtei[address] [place] [address]Dr.Yilan ChangBilirubin [Mass/Vol]0.2 mg/dL Normal0.2-1.0The [facility] CenterComment on above:Performed By: #### CMP ####[facility] Xpdbswknyr[address] [place], [place] [address]Dr. Yilan ChangCalcium [Mass/Vol]7.9 mg/dLCritically low8.5-10.1The [facility] CenterComment on above:Performed By: #### CMP ####[facility] Owxonsdasf4125[address] [place], [place] [address]Dr.Yilan ChangChloride [Moles/Vol]97 mmol/LCritically ajc37-236Pwa [facility] CenterComment on above: Performed By: #### CMP ####[facility] Imaffrlizh[address] [place], [place] [address]Dr.Yilan ChangCO2 [Moles/Vol]27.3 mmol/LNormal 21.0-32.0The [facility] CenterComment on above:Performed By: #### CMP ####[facility] Fbhneiplfa5710[address] [place], [place] [address]Dr. Yilan ChangCreatinine [Mass/Vol]1.58 mg/dLCritically high0.55-1.02The [facility] CenterComment on above:Performed By: #### CMP ####[facility] Mhwgyllizq[address] [place] [address]Dr.Yilan ChangEGFR-AF NNZATXQF13 mL/min/1.32c2Pxkvmviior low>=60The [facility] CenterComment on above: Performed By: #### CMP ####[facility] Ngoqmwzsur[address] [place] [address]Dr.Yilan ChangEGFR-NON AF VKLNJHZK13 mL/min/1.73m2 Critically low>=60The [facility] HospitalComment on above:Performed By: #### CMP ####[facility] Jhzaftxskm5835[address] [place], [place] [address]Dr. Yilan ChangGlobulin (S) [Mass/Vol]2.8 g/dLNormalThe [facility] CenterComment on above:Performed By: #### CMP ####[facility] Cxyhapzhdl4857[address] [place], [place] [address]Dr.Yilan ChangGlucose [Mass/Vol]111 mg/dLCritically cuqu81-014Wtb [facility] CenterComment on above:Performed By: #### CMP ####[facility] Fpfujvttqt1149[address] [place], [place] [address]Dr. Yilan ChangPotassium [Moles/Vol]4.8 mmol/LNormal3.5-5.1The [facility] Comment on above:Performed By: #### CMP ####[facility] Xyshnpkroe3348[address] [place], [place] [address]Dr.Yilan ChangProtein [Mass/Vol]5.8 g/dL Critically low6.4-8.2The [facility] CenterComment on above:Performed By: #### CMP ####[facility] Ptrcnpvcve619[address] [place], [place] [address]Dr. Yilan ChangSodium [Moles/Vol]129 mmol/LCritically kaq888-454Cmn [facility] CenterComment on above:Performed By: #### CMP ####[facility] Oniqncygna3729[address] [place], [place] [address]Dr.Yilan ChangUrea nitrogen [Mass/Vol]44.0 mg/dLCritically high7.0-18.0The [facility] CenterComment on above:Performed By: #### CMP ####[facility] Nxaugslcpq2145[address] [place], [place] [address]Dr.Selenaneil DeuceUrea nitrogen/Creatinine [Mass ratio] 27.8 mg/mgNormalThe [facility] CenterComtr[facility] on above:Performed By: #### CMP ####[facility] Rxwfsbqvpf766[address] [place], [place] [address]Dr. Selenaneil DeuceOSMOLALITYon 51-33-2302Ueqskpflaf [Osmolality]288 mosm/kgNormal 275-295The [facility] CenterComment on above:Performed By: #### OSMO ####[facility] Ybdfiodbdk784[address] [place], [place] [address]Dr. Selenaneil DeuceCBC AUTO DIFFon 64-35-5102MMBL #0.0 103/ulNormal0.0-0.1The [facility] on above:Performed By: #### CBC ####[facility] Kpjmmpvalr76[address] [place], [place] [address]Dr.Airam DeuceBasophils/100 WBC (Bld)0.5 %Normal0.2-2.0The [facility] CenterComtr[facility] on above:Performed By: #### CBC ####[facility] Vadldpsixb94[address] [place], [place] [address]Dr.Selenalan ChangEO #0.4 103/ulNormal0.0-0.7The [facility] CenterComtr[facility] on above:Performed By: #### CBC ####[facility] Nrzblkgqxc2580[address] [place], [place] [address]Dr.Selenaneil ChangEosinophils/100 WBC (Bld)4.8 %Normal 0.9-7.0The [facility]ment on above:Performed By: #### CBC ####[facility] Iicfslelog3601[address] [place], [place] [address]Dr.Selenaneil Tripathi Erythrocyte distribution width (RBC) [Ratio]14.2 %Sceido83.0-15.0The [facility] Hospitalment on above:Performed By: #### CBC ####[facility] Evaqyethvm6880[address] [place], [place] [address]Dr.Airam TripathiHematocrit (Bld) [Volume fraction]31.1 %Critically low36.0-48.0The [facility] CenterComment on above:Performed By: #### CBC ####[facility] Hvezgwpuad249[address] [place], [place] [address]Dr.Airam DeuceHemoglobin (Bld) [Mass/Vol]9.7 g/dL Critically low12.0-16.0The [facility] CenterComment on above:Performed By: #### CBC ####[facility] Oenlykzilb2917[address] [place], [place] [address]Dr. Selenalan ChangIG #0.05 10e3/ulCritically high0.00-0.03The [facility] CenterComment on above:Performed By: #### CBC ####[facility] Nmxxojfndy8530[address] [place], [place] [address]Dr.Airam ChangIG %0.6 %Critically high0.0-0.5The [facility] CenterComment on above:Performed By: #### CBC ####[facility] Jusjlwyxse6464[address] [place], [place] [address]Dr.Airam TripathiLYMPH #1.7 103/ulNormal1.2-3.8The [facility] CenterComment on above:Performed By: #### CBC ####[facility] Bzybcacyjp0494[address] [place], [place] [address]Dr. Ariam TripathiLymphocytes/100 WBC (Bld)19.6 %Critically low20.5-60.0The [facility] CenterComment on above:Performed By: #### CBC ####[facility] Tyvzaadbph1812[address] [place], [place] [address]Dr.Selenaneil TripathiMANUAL DIFF REQ NONormalThe [facility] CenterComment on above:Performed By: #### CBC ####[facility] Ezvivhosob9637[address] [place], [place] [address]Dr. Airam TripathiMCH (RBC) [Entitic mass]28.2 ncJwmybq51.7-34.0The [facility] Comment on above:Performed By: #### CBC ####[facility] T[address]szrdeae[address] [place] [address]Dr.Airam TripathiMCHC (RBC) [Mass/Vol]31.2 g/dL Xbqrio29.9-35.2The [facility] CenterComment on above:Performed By: #### CBC ####[facility] Prabnmizyl[address] [place] [address]Dr. Airam TripathiMCV (RBC) [Entitic vol]90.4 tEJoyglc71.0-99.0The [facility] Comment on above:Performed By: #### CBC ####[facility] Mojqseftfq99033[address] [place], [place] [address]Dr.Airam TripathiMONO #0.6 103/ulNormal0.3-0.8 The [facility] CenterComment on above:Performed By: #### CBC ####[facility] Kbhlyausqy[address] [place], [place] [address]Dr.Airam Tripathi Monocytes/100 WBC (Bld)7.4 %Normal1.7-12.0The [facility] CenterComment on above: Performed By: #### CBC ####[facility] Hnnedpbqme3850[address] [place], [place] [address]Dr.Airam DeuceNEUT #5.8 103/ulNormal1.4-6.5The [facility] CenterComment on above:Performed By: #### CBC ####[facility] Ngayizuwtd0959[address] [place], [place] [address]Dr.Airam DeuceNeutrophils/100 WBC (Bld)67.1 %Jsmrgk64.0-75.0The [facility] CenterComment on above:Performed By: #### CBC ####[facility] Yujzbfissv465[address] [place], [place] [address]Dr.Airam TripathiPlatelet mean volume (Bld) [Entitic vol]9.9 fLNormal9.5-13.5 [facility] HospitalComment on above:Performed By: #### CBC ####[facility] Obedgtigto7336[address] [place], [place] [address]Dr.Airam TripathiPLT320 103/reTjhceb408-052Imv [facility] CenterComment on above:Performed By: #### CBC ####[facility] Gwdifebzhe260[address] [place] [address]Dr. Airam ChangRBC3.44 106/ulCritically low4.20-5.40The [facility] CenterComment on above:Performed By: #### CBC ####[facility] Mjcnxnfanr28[address] [place] [address]Dr.Airam ChangWBC8.6 103/ulNormal4.0-11.0The [facility] CenterComment on above:Performed By: #### CBC ####[facility] Vhohowlnna6[address] [place] [address]Dr.Airam TripathiPROF 14(COMP METB)on 94-02-1095Cbdkfuo [Mass/Vol]3.4 g/dLNormal3.4-5.0[facility] Comment on above:Performed By: #### CMP ####[facility] Wfqaecemua4837[address] [place], [place] [address]Dr.Airam ChangAlbumin/Globulin [Mass ratio] 1.1 {ratio}NormalThe [facility] CenterComment on above:Performed By: #### CMP ####[facility] Hfzibipndt5428[address] [place], [place] [address]Dr. Airam TripathiALP [Catalytic activity/Vol]170 U/LCritically lgxy86-675Nin [facility] CenterComment on above:Performed By: #### CMP ####[facility] Kpjkunzdtd8969[address] [place], [place] [address]Dr.Airam ChangALT [Catalytic activity/Vol]22 U/LVftwwp09-36Ggu [facility] CenterComment on above:Performed By: #### CMP ####[facility] Clozrnehkq8509[address] [place], [place] [address]Dr.Airam TripathiAnion gap [Moles/Vol]14.4 mmol/LNormalThe [facility] Comment on above:Performed By: #### CMP ####[facility] Kurfakkomz4974[address] [place], [place] [address]Dr.Airam ChangAST [Catalytic activity/Vol]25 U/HNnatlt21-97Pvj [facility] CenterComment on above:Performed By: #### CMP ####[facility] Zlpmrteufs6211[address] [place], [place] [address]Dr. Yilan ChangBilirubin [Mass/Vol]0.3 mg/dLNormal0.2-1.0The [facility] Comment on above:Performed By: #### CMP ####[facility] Gibwbursca0128[address] [place], [place] [address]Dr.Yilan ChangCalcium [Mass/Vol]8.2 mg/dL Critically low8.5-10.1The [facility] CenterComment on above:Performed By: #### CMP ####[facility] Qvnjtumsxn7250[address] [place], [place] [address]Dr. Yilan ChangChloride [Moles/Vol]98 mmol/HRyzlki44-853Qsl [facility] CenterComment on above:Performed By: #### CMP ####[facility] Kvatzfknet6748[address] [place], [place] [address]Dr.Yilan ChangCO2 [Moles/Vol]27.8 mmol/LNormal 21.0-32.0The [facility] CenterComment on above:Performed By: #### CMP ####[facility] Abovtcifop6280[address] [place], [place] [address]Dr. Yilan ChangCreatinine [Mass/Vol]1.82 mg/dLCritically high0.55-1.02The [facility] CenterComment on above:Performed By: #### CMP ####[facility] Lcvaqezqqp8167[address] [place], [place] [address]Dr.Yilan ChangEGFR-AF XZXNIDXN03 mL/min/1.19b0Qseiaktago low>=60The [facility] CenterComment on above: Performed By: #### CMP ####[facility] Zvvbvprwkw78[address] [place], [place] [address]Dr.Yilan ChangEGFR-NON AF PWZSTBDJ17 mL/min/1.73m2 Critically low>=60The [facility] CenterComment on above:Performed By: #### CMP ####[facility] Dzntwqvubu6210[address] [place], [place] [address]Dr. Yilan ChangGlobulin (S) [Mass/Vol]3.2 g/dLNormWhite HospitalComment on above:Performed By: #### CMP ####[facility] Phlnescfpu4834[address] [place], [place] [address]Dr.Airam ChangGlucose [Mass/Vol]78 mg/gXLqewon40-749 The [facility] CenterComment on above:Performed By: #### CMP ####[facility] Wvfbbnopsr6667[address] [place], [place] [address]Dr.Airam Tripathi Potassium [Moles/Vol]5.2 mmol/LCritically high3.5-5.1The [facility] Comment on above:Performed By: #### CMP ####[facility] Fquwfxftme386[address] [place], [place] [address]Dr.Airam ChangProtein [Mass/Vol]6.6 g/dL Normal6.4-8.2The [facility] CenterComment on above:Performed By: #### CMP ####[facility] Ieqcoixbhk100[address] [place], [place] [address]Dr. Airam ChangSodium [Moles/Vol]135 mmol/LCritically bzh733-186Xxp [facility] CenterComment on above:Performed By: #### CMP ####[facility] Nzplakcgff522[address] [place], [place] [address]Dr.Airam ChangUrea nitrogen [Mass/Vol]51.0 mg/dLCritically high7.0-18.0The [facility] CenterComment on above:Performed By: #### CMP ####[facility] Akwlyuyfih8545[address] [place], [place] [address]Dr.Selenalan ChangUrea nitrogen/Creatinine [Mass ratio] 28.0 mg/mgNormWhite HospitalComment on above:Performed By: #### CMP ####[facility] Nvnusgigso4257[address] [place], [place] [address]Dr. Airam ChangOSMOLALITYon 61-04-5345Wpezifasfu [Osmolality]280 mosm/kgNormal 275-295The [facility] CenterComment on above:Performed By: #### OSMO ####[facility] Wunfijotxe37033[address] [place], [place] [address]Dr. Airam TripathiCBC AUTO DIFFon 56-74-1578NDPD #0.0 103/ulNormal0.0-0.1The [facility] CenterComment on above:Performed By: #### CBC ####[facility] Zlwulleiuv8712[address] [place], [place] [address]Dr.Airam TripathiBasophils/100 WBC (Bld)0.2 %Normal0.2-2.0The [facility] CenterComment on above:Performed By: #### CBC ####[facility] Fbssjjbvgh6267[address] [place], [place] [address]Dr.Selenalan ChangEO #0.2 103/ulNormal0.0-0.7The [facility] CenterComment on above:Performed By: #### CBC ####[facility] Ixxwmelxdv845[address] [place], [place] [address]Dr.Airam ChangEosinophils/100 WBC (Bld)2.4 %Normal 0.9-7.0The [facility] CenterComment on above:Performed By: #### CBC ####[facility] Vbbwyuqyxf78[address] [place], [place] [address]Dr.Airam Tripathi Erythrocyte distribution width (RBC) [Ratio]14.2 %Fvnkow73.0-15.0The [facility] CenterComment on above:Performed By: #### CBC ####[facility] Mzrifqwfka6923[address] [place], [place] [address]Dr.Airam TripathiHematocrit (Bld) [Volume fraction]30.1 %Critically low36.0-48.0The [facility] CenterComment on above:Performed By: #### CBC ####[facility] Iphmndfkgy5069[address] [place], [place] [address]Dr.Airam TripathiHemoglobin (Bld) [Mass/Vol]9.2 g/dL Critically low12.0-16.0The [facility] CenterComment on above:Performed By: #### CBC ####[facility] Omsenwjhaq417[address] [place], [place] [address]Dr. Airam TripathiIG #0.04 10e3/ulCritically high0.00-0.03[facility] HospitalComment on above:Performed By: #### CBC ####[facility] [address]wdshqzb[address] [place] [address]Dr.Airam TripathiIG %0.4 %Normal0.0-0.5The [facility] CenterComment on above:Performed By: #### CBC ####[facility] Njmwdqjbxd28[address] [place] [address]Dr.Airam TripathiLYMPH #0.9 103/ulCritically low1.2-3.8The [facility] CenterComment on above:Performed By: #### CBC ####[facility] Emufojtgbe3310[address] [place], [place] [address]Dr.Airam TripathiLymphocytes/100 WBC (Bld)9.3 %Critically low20.5-60.0The [facility] CenterComment on above:Performed By: #### CBC ####[facility] Tdrvqvecwr655[address] [place], [place] [address]Dr.Airam TripathiMANUAL DIFF REQ NONormalThe [facility] CenterComment on above:Performed By: #### CBC ####[facility] Imvakkaopi617[address] [place], [place] [address]Dr. Airam TripathiH (RBC) [Entitic mass]27.7 vxRyzmmt57.7-34.0[facility] Comment on above:Performed By: #### CBC ####[facility] Oryykpqqjb6387[address] [place], [place] [address]Dr.Airam TripathiHC (RBC) [Mass/Vol]30.6 g/dL Azsfqs41.9-35.2The [facility] CenterComment on above:Performed By: #### CBC ####[facility] Ygfpqkysxr526[address] [place], [place] [address]Dr. Airam TripathiV (RBC) [Entitic vol]90.7 iMPenilr82.0-99.0The [facility] Comment on above:Performed By: #### CBC ####[facility] Ngtddygtlt8787[address] [place], [place] [address]Dr.Airam TripathiBOTHWELL REGIONAL HEALTH CENTERO #0.5 103/ulNormal0.3-0.8 The [facility] CenterComment on above:Performed By: #### CBC ####[facility] Zphbbhzoly8128[address] [place], [place] [address]Dr.Airam Tripathi Monocytes/100 WBC (Bld)5.3 %Normal1.7-12.0The [facility] CenterComment on above: Performed By: #### CBC ####[facility] Adnmwseitr[address] [place], [place] [address]Dr.Airam TripathiNEUT #7.7 103/ulCritically high1.4-6.5 The [facility] CenterComment on above:Performed By: #### CBC ####[facility] Fizqvfnwhi7425[address] [place], [place] [address]Dr.Airam Tripathi Neutrophils/100 WBC (Bld)82.4 %Critically high43.0-75.0The [facility] Comment on above:Performed By: #### CBC ####[facility] Ikjkhvrdpo6417[address] [place], [place] [address]Dr.Airam TripathiPlatelet mean volume (Bld) [Entitic vol]9.8 fLNormal9.5-13.5The [facility] CenterComment on above:Performed By: #### CBC ####[facility] Aawizsijac037[address] [place], [place] [address]Dr.Airam UzajuKSB033 103/prHungsh540-925Ekk [facility] CenterComment on above:Performed By: #### CBC ####[facility] Jweaetbgrw6960[address] [place], [place] [address]Dr.Airam DeuceRBC3.32 106/ulCritically low4.20-5.40The [facility] CenterComment on above:Performed By: #### CBC ####[facility] Dlmepbehca752[address] [place], [place] [address]Dr.Airam DeuceWBC9.4 103/ul Normal4.0-11.0The [facility] CenterComment on above:Performed By: #### CBC ####[facility] Qdbofzysmy5255[address] [place], [place] [address]Dr. Yilan ChangMRI WRIST RT WO CONon 65-24-0908TML WRIST RT WO CONNormalThe [facility] CenterPROF 14(COMP METB)on 75-05-4006Gsgvdkg [Mass/Vol]3.1 g/dLCritically low 3.4-5.0The [facility] CenterComment on above:Performed By: #### CMP ####[facility] Njrftqsdgj[address] [place], [place] [address]Dr.Airam Tripathi Albumin/Globulin [Mass ratio]0.9 {ratio}NormalThe [facility] CenterComment on above:Performed By: #### CMP ####[facility] Xxyrtxcksk4098[address] [place], [place] [address]Dr.Airam TripathiALP [Catalytic activity/Vol]162 U/L Critically aprt87-793Ven [facility] CenterComment on above:Performed By: #### CMP ####[facility] Rxhilxvlpa6646[address] [place], [place] [address]Dr. Airam TripathiALT [Catalytic activity/Vol]19 U/IQasqeg98-13Bko [facility] Comment on above:Performed By: #### CMP ####[facility] Gozidsgmvu9038[address] [place], [place] [address]Dr.Airam TripathiAnion gap [Moles/Vol]13.0 mmol/LNormalThe [facility] CenterComment on above:Performed By: #### CMP ####[facility] Ogplqddphf280[address] [place], [place] [address]Dr. Airam ChangAST [Catalytic activity/Vol]21 U/FCmgdmj83-26Csq [facility] Comment on above:Performed By: #### CMP ####[facility] Zgdebjczdm3718[address] [place], [place] [address]Dr.Airam ChangBilirubin [Mass/Vol]0.3 mg/dL Normal0.2-1.0The [facility] CenterComment on above:Performed By: #### CMP ####[facility] Owfxsrkdir9110[address] [place], [place] [address]Dr. Airam TripathiCalcium [Mass/Vol]8.4 mg/dLCritically low8.5-10.1The [facility] CenterComment on above:Performed By: #### CMP ####[facility] [address]qpwszcm[address] [place] [address]Dr.Yilan ChangChloride [Moles/Vol]103 mmol/TZqdliw35-942Rjq [facility] CenterComment on above:Performed By: #### CMP ####[facility] Yawnaiceyc74[address] [place], [place] [address]Dr.Yilan ChangCO2 [Moles/Vol]23.3 mmol/ACfcbdi88.0-32.0The [facility] CenterComment on above:Performed By: #### CMP ####[facility] Byfvalvmnf5[address] [place], [place] [address]Dr.Yilan ChangCreatinine [Mass/Vol]1.02 mg/dLNormal0.55-1.02The [facility] CenterComtr[facility] on above: Performed By: #### CMP ####[facility] Udgyjeksmj6[address] [place], [place] [address]Dr.Yilan ChangEGFR-AF YEMENI>60Normal>=60The [facility] on above:Performed By: #### CMP ####[facility] Ilahietcvk65[address] [place], [place] [address]Dr.Yilan ChangEGFR-NON AF KQJKBLRF77 mL/min/1.57r4Fejpngqtpb low>=60The [facility] CenterComtr[facility] on above: Performed By: #### CMP ####[facility] Udaqtwezby[address] [place], [place] [address]Dr.Yilan ChangGlobulin (S) [Mass/Vol]3.4 g/dLNormalThe [facility] CenterComment on above:Performed By: #### CMP ####[facility] Nfevd[address] [place], [place] [address]Dr.Yilan ChangGlucose [Mass/Vol]88 mg/pXXhtcpo38-037[facility] CenterComtr[facility] on above:Performed By: #### CMP ####[facility] Tvjtybpxil[address] [place], [place] [address]Dr.Yilan ChangPotassium [Moles/Vol]4.3 mmol/LNormal3.5-5.1The [facility] CenterComment on above:Performed By: #### CMP ####[facility] Yp[address]cfrt[address] [place] [address]Dr.Yilan ChangProtein [Mass/Vol]6.5 g/dLNormal6.4-8.2The [facility] CenterComment on above:Performed By: #### CMP ####[facility] Dbtitczuew[address] [place] [address]Dr.Yilan ChangSodium [Moles/Vol]135 mmol/LCritically ast486-110Hta [facility] CenterComment on above:Performed By: #### CMP ####[facility] Nqtnxqseyw[address] [place] [address]Dr.Yilan ChangUrea nitrogen [Mass/Vol]27.0 mg/dLCritically high7.0-18.0The [facility] CenterComment on above:Performed By: #### CMP ####[facility] Bqnskwyfwo[address] [place] [address]Dr.Selenalan ChangUrea nitrogen/Creatinine [Mass ratio] 26.5 mg/mgNormalThOhioHealth Shelby HospitalComment on above:Performed By: #### CMP ####[facility] Lsdqsrvgwf[address] [place] [address]Dr. Airam TripathiCT HEAD WO CONon 59-73-4742IM HEAD WO [facility] LSPINE WO CONon 77-02-3335GF LSPINE WO UK HealthcareXR HAND RT MIN 3Von 30-77-4144DR HAND RT MIN 3VNormWhite HospitalXR KNEE LT 4V or >on 39-91-7573VW KNEE LT 4V or >NormalThe [facility] CenterXR WRIST RT MIN 3 Von 81-94-3699XV WRIST RT MIN 3 VNHolzer HospitalOSMOLALITYon 42-68-4473Bhmjvzuzrv [Osmolality]282 mosm/fwLtsgcg063-315Nji [facility] Comment on above:Performed By: #### OSMO ####[facility] Kbzxsqrmgv3[address] [place] [address]Dr. Airam BabcockC AUTO DIFFon 02-08-2023 BASO #0.0 103/ulNormal0.0-0.1The [facility] CenterComment on above:Performed By: #### CBC ####[facility] Iwbzconint[address] [place], [place] [address]Dr.Yilan ChangBasophils/100 WBC (Bld)0.5 %Normal0.2-2.0The [facility] CenterComment on above:Performed By: #### CBC ####[facility] Cebgfcloyz74[address] [place], [place] [address]Dr.Yilan ChangEO #0.5 103/ul Normal0.0-0.7The [facility] CenterComment on above:Performed By: #### CBC ####[facility] Rnjknuoosx8534[address] [place], [place] [address]Dr. Yilan ChangEosinophils/100 WBC (Bld)5.2 %Normal0.9-7.0The [facility] Comment on above:Performed By: #### CBC ####[facility] Qreoumropa360[address] [place], [place] [address]Dr.Selenalan ChangErythrocyte distribution width (RBC) [Ratio]14.3 %Gfgyzl11.0-15.0The [facility] CenterComment on above: Performed By: #### CBC ####[facility] Nyezulyweu7[address] [place], [place] [address]Dr.Airam ChangHematocrit (Bld) [Volume fraction]31.4 % Critically low36.0-48.0The [facility] CenterComment on above:Performed By: #### CBC ####[facility] Gurxlqdsxg9734[address] [place], [place] [address]Dr. Selenalan ChangHemoglobin (Bld) [Mass/Vol]9.5 g/dLCritically low12.0-16.0The [facility] CenterComment on above:Performed By: #### CBC ####[facility] Gifkzkpvyv[address] [place], [place] [address]Dr.Yilan ChangIG #0.05 10e3/ulCritically high0.00-0.03The [facility] CenterComment on above:Performed By: #### CBC ####[facility] Cnanmjwznu8[address] [place] [id number].Airam TripathiIG %0.6 %Critically high0.0-0.5The [facility] CenterComment on above:Performed By: #### CBC ####[facility] Upngpkrzgu27[address] [place] [address]Dr.Airam TripathiLYMPH #1.5 103/ulNormal1.2-3.8The [facility] CenterComment on above:Performed By: #### CBC ####[facility] Fuzxixbdvn8860[address] [place], [place] [address]Dr.Airam TripathiLymphocytes/100 WBC (Bld)17.6 %Critically low20.5-60.0The [facility] CenterComment on above: Performed By: #### CBC ####[facility] Jfuqgbyqtx80[address] [place], [place] [address]Dr.Airam TripathiMANUAL DIFF REQNONormalThe [facility] CenterComment on above:Performed By: #### CBC ####[facility] Ouwmuzelwp3310[address] [place], [place] [address]Dr.Airam TripathiH (RBC) [Entitic mass]29.0 txYbhgqn49.7-34.0The [facility] CenterComment on above: Performed By: #### CBC ####[facility] Emkfuqyhya2865[address] [place], [place] [address]Dr.Airam TripathiHC (RBC) [Mass/Vol]30.3 g/dLNormal 29.9-35.2The [facility] CenterComment on above:Performed By: #### CBC ####[facility] Svizlwgtwy3667[address] [place], [place] [address]Dr. Airam TripathiMCV (RBC) [Entitic vol]95.7 xLNeqiup73.0-99.0The [facility] Comment on above:Performed By: #### CBC ####[facility] Okmpsteotc9154[address] [place], [place] [address]Dr.Airam TripathiMONO #0.7 103/ulNormal0.3-0.8 The [facility] CenterComment on above:Performed By: #### CBC ####[facility] Ggforzvalo[address] [place] [address]Dr.Airam Tripathi Monocytes/100 WBC (Bld)8.5 %Normal1.7-12.0The [facility] CenterComment on above: Performed By: #### CBC ####[facility] Ollaliwfel5[address] [place] [address]Dr.Airam TripathiNEUT #5.8 103/ulNormal1.4-6.5The [facility] CenterComment on above:Performed By: #### CBC ####[facility] Wbiidguhzs68[address] [place] [address]Dr.Airam TripathiNeutrophils/100 WBC (Bld)67.6 %Dxxnyd18.0-75.0The [facility] CenterComtr[facility] health [facility] on above:Performed By: #### CBC ####[facility] Mogbumtxsy5746[address] [place], [place] [address]Dr.Airam TripathiPlatelet mean volume (Bld) [Entitic vol]9.5 fLNormal9.5-13.5 The [facility] CenterComtr[facility] on above:Performed By: #### CBC ####[facility] Opygtnfagt719[address] [place], [place] [address]Dr.Airam ZrazaISG200 103/txJhyafo928-461Xlk [facility] on above:Performed By: #### CBC ####[facility] Gkmnryxjvi[address] [place], [place] [address]Dr. Airam ChangRBC3.28 106/ulCritically low4.20-5.40The [facility] on above:Performed By: #### CBC ####[facility] Gxohoubxgr327[address] [place], [place] [address]Dr.Airam ChangWBC8.6 103/ulNormal4.0-11.0The [facility] on above:Performed By: #### CBC ####[facility] Ljebbojfbk8460[address] [place], [place] [address]Dr.Airam ChangPROF 14(COMP METB)on 05-24-0511Cijjhet [Mass/Vol]3.0 g/dLCritically low3.4-5.0The [facility] CenterComment on above:Performed By: #### CMP ####[facility] Xfoylhbyze65[address] [place] [address]Dr.Airam Tripathi Albumin/Globulin [Mass ratio]0.9 {ratio}NormalThe [facility] CenterComment on above:Performed By: #### CMP ####[facility] Bmavuwvyiv77[address] [place] [address]Dr.Yineil ChangALP [Catalytic activity/Vol]184 U/L Critically zxym28-731Vaz [facility] CenterComment on above:Performed By: #### CMP ####[facility] Pyitwzgbgz7440[address] [place], [place] [address]Dr. Yineil ChangALT [Catalytic activity/Vol]18 U/LWvopmc32-30Gkw [facility] Comment on above:Performed By: #### CMP ####[facility] Xzygpknzgx8458[address] [place], [place] [address]Dr.Airam ChangAnion gap [Moles/Vol]11.2 mmol/LNormalThe [facility] CenterComment on above:Performed By: #### CMP ####[facility] Ysqwfsrutf1057[address] [place], [place] [address]Dr. Yineil ChangAST [Catalytic activity/Vol]19 U/YBesdxm03-74Qbq [facility] Comment on above:Performed By: #### CMP ####[facility] Hxmvyfvsro1174[address] [place], [place] [address]Dr.Yineil ChangBilirubin [Mass/Vol]0.3 mg/dL Normal0.2-1.0The [facility] CenterComment on above:Performed By: #### CMP ####[facility] Gcsitjwyaa5220[address] [place], [place] [address]Dr. Yineil ChangCalcium [Mass/Vol]8.8 mg/dLNormal8.5-10.1The [facility] CenterComment on above:Performed By: #### CMP ####[facility] Xcvffxrrii4507[address] [place], [place] [address]Dr.Yilan ChangChloride [Moles/Vol]101 mmol/LNormal 98-107The [facility] Hospitalment on above:Performed By: #### CMP ####[facility] Gisywlttrc1435[address] [place], [place] [address]Dr.Airam ChangCO2 [Moles/Vol]25.4 mmol/JMntawm09.0-32.0The [facility] CenterComment on above: Performed By: #### CMP ####[facility] Ldvadpkmhh137[address] [place], [place] [address]Dr.Airam ChangCreatinine [Mass/Vol]1.05 mg/dL Critically high0.55-1.02The [facility] CenterComtr[facility] on above:Performed By: #### CMP ####[facility] Nlgduypzkf1032[address] [place], [place] [address]Dr.Selenalan ChangEGFR-AF YEMENI>60Normal>=60[facility] on above:Performed By: #### CMP ####[facility] Kwsidlraip9877[address] [place], [place] [address]Dr.Selenalan ChangEGFR-NON AF HUYBYRTH93 mL/min/1.73m2 Critically low>=60The [facility] CenterComtr[facility] on above:Performed By: #### CMP ####[facility] Uwqbpyuyda2746[address] [place], [place] [address]Dr. Airam ChangGlobulin (S) [Mass/Vol]3.4 g/dLNormalThe [facility] CenterComtr[facility] on above:Performed By: #### CMP ####[facility] Artoxedzdr255[address] [place], [place] [address]Dr.Airam ChangGlucose [Mass/Vol]78 mg/eXXxtikt62-135 The [facility] CenterComment on above:Performed By: #### CMP ####[facility] Enhzyvgxyf086[address] [place], [place] [address]Dr.Selenalan Tripathi Potassium [Moles/Vol]4.6 mmol/LNormal3.5-5.1The [facility] on above:Performed By: #### CMP ####[facility] Gcpmaihfma769[address] [place], [place] [address]Dr.Yilan ChangProtein [Mass/Vol]6.4 g/dLNormal6.4-8.2 The [facility] CenterComment on above:Performed By: #### CMP ####[facility] Wcopxdeiqb6568[address] [place], [place] [address]Dr.Yilan ChangSodium [Moles/Vol]133 mmol/LCritically vmk141-699Nzo [facility] CenterComment on above:Performed By: #### CMP ####[facility] Vxgbuvjruq2986[address] [place], [place] [address]Dr.Yilan ChangUrea nitrogen [Mass/Vol]26.0 mg/dL Critically high7.0-18.0The [facility] CenterComment on above:Performed By: #### CMP ####[facility] Tcxhkbmqed8022[address] [place], [place] [address]Dr. Selenalan ChangUrea nitrogen/Creatinine [Mass ratio]24.8 mg/mgNormalThe [facility] CenterComment on above:Performed By: #### CMP ####[facility] Yaoheuxuxu8477[address] [place], [place] [address]Dr.Airam ChangOSMOLALITYon 08-97-8646Fnztzimxyi [Osmolality]287 mosm/fnLajvtb510-975Cuy [facility] Comment on above:Performed By: #### OSMO ####[facility] Rdbkiuhajm0647[address] [place], [place] [address]Dr. Airam DeuceCBC AUTO DIFFon 07-27-2022 BASO #0.0 103/ulNormal0.0-0.1The [facility] CenterComment on above:Performed By: #### CBC ####[facility] Legqjudaqo6620[address] [place], [place] [address]Dr.Selenalan ChangBasophils/100 WBC (Bld)0.4 %Normal0.2-2.0The [facility] CenterComment on above:Performed By: #### CBC ####[facility] Idbpqqfcgx5009[address] [place], [place] [address]Dr.Selenalan ChangEO #0.2 103/ul Normal0.0-0.7The [facility] CenterComment on above:Performed By: #### CBC ####[facility] Raryajqglf[address] [place] [address]Dr. Selenaneil ChangEosinophils/100 WBC (Bld)2.6 %Normal0.9-7.0The [facility] Comment on above:Performed By: #### CBC ####[facility] Hmdsezcgoh3868[address] [place], [place] [address]Dr.Selenaneil ChangErythrocyte distribution width (RBC) [Ratio]14.2 %Mhzijm45.0-15.0The [facility] CenterComment on above: Performed By: #### CBC ####[facility] Jhthorouil946[address] [place], [place] [address]Dr.Selneaneil ChangHematocrit (Bld) [Volume fraction]31.3 % Critically low36.0-48.0The [facility] CenterComment on above:Performed By: #### CBC ####[facility] Hydglddmwg309[address] [place], [place] [address]Dr. Airam ChangHemoglobin (Bld) [Mass/Vol]9.3 g/dLCritically low12.0-16.0The [facility] CenterComment on above:Performed By: #### CBC ####[facility] Lqdkefhlor6560[address] [place], [place] [address]Dr.Selenaneil ChangIG #0.05 10e3/ulCritically high0.00-0.03The [facility] CenterComment on above:Performed By: #### CBC ####[facility] Bmuerkzwex0836[address] [place], [place] [address]Dr.Airam ChangIG %0.7 %Critically high0.0-0.5The [facility] CenterComment on above:Performed By: #### CBC ####[facility] Onouhazawg1632[address] [place], [place] [address]Dr.Yilan ChangLYMPH #1.0 103/ulCritically low1.2-3.8 The [facility] CenterComment on above:Performed By: #### CBC ####[facility] Qptkgkisrp1127[address] [place], [place] [address]Dr.Airam Tripathi Lymphocytes/100 WBC (Bld)13.4 %Critically low20.5-60.0The [facility] Comment on above:Performed By: #### CBC ####[facility] Bcjbzadlbh020[address] [place] [address]Dr.Airam TripathiMANUAL DIFF REQNONormalThe [facility] CenterComment on above:Performed By: #### CBC ####[facility] Tvucttnavn5[address] [place] [address]Dr.Airam TripathiH (RBC) [Entitic mass]28.8 slHkxcxc24.7-34.0The [facility] CenterComment on above: Performed By: #### CBC ####[facility] Zixfjgnhyk5453 [place] [address]Dr.Airam TripathiMCHC (RBC) [Mass/Vol]29.7 g/dLCritically low29.9-35.2The [facility] CenterComment on above:Performed By: #### CBC ####[facility] Xjpnndnvae5567[address] [place], [place] [address]Dr. Airam TripathiV (RBC) [Entitic vol]96.9 mEZitnyq97.0-99.0The [facility] Comment on above:Performed By: #### CBC ####[facility] Olllaghqhv1527[address] [place], [place] [address]Dr.Airam TripathiMONO #0.5 103/ulNormal0.3-0.8 The [facility] CenterComment on above:Performed By: #### CBC ####[facility] Vbejfdpqpg1117[address] [place], [place] [address]Dr.Airam Tripathi Monocytes/100 WBC (Bld)6.3 %Normal1.7-12.0The [facility] CenterComment on above: Performed By: #### CBC ####[facility] Fwaprrhnhf2866[address] [place], [place] [address]Dr.Airam DeuceNEUT #5.8 103/ulNormal1.4-6.5The [facility] CenterComment on above:Performed By: #### CBC ####[facility] Vukpsudxdl7588[address] [place], [place] [address]Dr.Airam DeuceNeutrophils/100 WBC (Bld)76.6 %Critically high43.0-75.0The [facility] CenterComment on above: Performed By: #### CBC ####[facility] Uvwgkqfujn33[address] [place] [address]Dr.Airam TripathiPlatelet mean volume (Bld) [Entitic vol] 10.3 fLNormal9.5-13.5The [facility] CenterComment on above:Performed By: #### CBC ####[facility] Oismysycjx45[address] [place] [address]Dr. Airam PhzaxEIF422 103/erIaurwo387-594Qxb [facility] CenterComment on above: Performed By: #### CBC ####[facility] Ulrjodpdit440[address] [place], [place] [address]Dr.Airam ChangRBC3.23 106/ulCritically low4.20-5.40The [facility] CenterComment on above:Performed By: #### CBC ####[facility] Vhjtaeyyjq0807[address] [place], [place] [address]Dr.Airam TripathiWBC7.6 103/ul Normal4.0-11.0The [facility] CenterComment on above:Performed By: #### CBC ####[facility] Itzpdebzsj8636[address] [place], [place] [address]Dr. Airam TripathiPROF 14(COMP METB)on 20-21-6032Erjxstc [Mass/Vol]2.9 g/dLCritically low3.4-5.0The [facility] CenterComment on above:Performed By: #### CMP ####[facility] Jvsswnpths7444[address] [place], [place] [address]Dr. Airam TripathiAlbumin/Globulin [Mass ratio]0.8 {ratio}NormalThe [facility] Comment on above:Performed By: #### CMP ####[facility] Hushpjkzhq9254[address] [place], [place] [address]Dr.Airam TripathiALP [Catalytic activity/Vol] 175 U/LCritically upzw55-366Rhu [facility] CenterComment on above:Performed By: #### CMP ####[facility] Hmqewsskic9485[address] [place], [place] [address]Dr.Yilan ChangALT [Catalytic activity/Vol]24 U/HHrrcmp26-82Xbg [facility] CenterComment on above:Performed By: #### CMP ####[facility] Vlpaiigztb2518[address] [place], [place] [address]Dr.Airam ChangAnion gap [Moles/Vol]14.3 mmol/LNormalThe [facility] HospitalComment on above:Performed By: #### CMP ####[facility] Lhtlwyjfpa8620[address] [place], [place] [address]Dr.Yineil ChangAST [Catalytic activity/Vol]25 U/UXbyxli37-65Sjh [facility] CenterComment on above:Performed By: #### CMP ####[facility] Jrcljmhwfk927[address] [place], [place] [address]Dr.Airam ChangBilirubin [Mass/Vol]0.2 mg/dLNormal0.2-1.0The [facility] CenterComment on above:Performed By: #### CMP ####[facility] Jgtccimwvx4536[address] [place], [place] [address]Dr.Airam ChangCalcium [Mass/Vol]8.6 mg/dLNormal8.5-10.1The [facility] CenterComment on above:Performed By: #### CMP ####[facility] Yrxnxdhayk718[address] [place], [place] [address]Dr.Airam ChangChloride [Moles/Vol]102 mmol/PBrrsfi35-310Aep [facility] CenterComment on above:Performed By: #### CMP ####[facility] Vwowcpbxhk2408[address] [place], [place] [address]Dr.Yilan ChangCO2 [Moles/Vol]23.7 mmol/YZrycmb04.0-32.0The [facility] HospitalComment on above:Performed By: #### CMP ####[facility] Hfrefxdiew3334[address] [place], [place] [address]Dr.Selenalan ChangCreatinine [Mass/Vol]1.29 mg/dLCritically high0.55-1.02The [facility] CenterComment on above:Performed By: #### CMP ####[facility] Hyyzoiexhc435[address] [place], [place] [address]Dr.Yilan ChangEGFR-AF JXUFZDWP70 mL/min/1.73m2 Critically low>=60The [facility] CenterComment on above:Performed By: #### CMP ####[facility] Ppwjxvrmvq5147[address] [place], [place] [address]Dr. Selenalan ChangEGFR-NON AF CMZVATSI76 mL/min/1.99l3Yshpftzlwb low>=60The [facility] CenterComment on above:Performed By: #### CMP ####[facility] Jrdwpflvhm5180[address] [place], [place] [address]Dr.Airam ChangGlobulin (S) [Mass/Vol]3.6 g/dLNormalThe [facility] CenterComment on above:Performed By: #### CMP ####[facility] Twikkpqfps8396[address] [place], [place] [address]Dr.Selenalan ChangGlucose [Mass/Vol]84 mg/sYVamrnx78-544Ykq [facility] Comment on above:Performed By: #### CMP ####[facility] Mtesmxvdlc6440[address] [place], [place] [address]Dr.Airam ChangPotassium [Moles/Vol]5.0 mmol/LNormal3.5-5.1The [facility] CenterComment on above:Performed By: #### CMP ####[facility] Tzjmtqkdtu8534[address] [place], [place] [address]Dr. Yilan ChangProtein [Mass/Vol]6.5 g/dLNormal6.4-8.2The [facility] CenterComment on above:Performed By: #### CMP ####[facility] Eejjcsfkxi7901[address] [place], [place] [address]Dr.Yilan ChangSodium [Moles/Vol]135 mmol/LCritically nmq367-961Oiz [facility] CenterComment on above:Performed By: #### CMP ####[facility] Pcvckchcty840[address] [place], [place] [address]Dr. Yilan ChangUrea nitrogen [Mass/Vol]28.0 mg/dLCritically high7.0-18.0The [facility] CenterComment on above:Performed By: #### CMP ####[facility] Nouqpvfxpk[address] [place] [address]Dr.Selenaneil ChangUrea nitrogen/Creatinine [Mass ratio]21.7 mg/mgNoGlenbeigh HospitalComment on above:Performed By: #### CMP ####[facility] Ykjasyxcys9713[address] [place], [place] [address]Dr.Yilan ChangXR LSPINE MIN 4 VIEWSon 22-67-6882HR LSPINE MIN 4 VIEWSNoGlenbeigh HospitalOSMOLALITYon 02-66-8685Ogngauiqgo [Osmolality]279 mosm/cjJpluzg085-725Awk [facility] CenterComment on above: Performed By: #### OSMO ####[facility] Rgbbtligda5822[address] [place], [place] [address]Dr. Selenalan ChangCBC AUTO DIFFon 35-00-5068NZWN #0.0 103/ulNormal0.0-0.1The [facility] CenterComtr[facility] on above:Performed By: #### CBC ####[facility] Uionfatype5685[address] [place], [place] [address]Dr. Yilan ChangBasophils/100 WBC (Bld)0.4 %Normal0.2-2.0[facility] HospitalCom[facility] on above:Performed By: #### CBC ####[facility] Hlizvqsjrd58[address] [place], [place] [address]Dr.Yilan ChangEO #0.2 103/ulNormal0.0-0.7The [facility] CenterComtr[facility] health [facility] on above:Performed By: #### CBC ####[facility] Kunhmkmtmd[address] [place], [place] [address]Dr.Yilan ChangEosinophils/100 WBC (Bld)2.3 %Normal0.9-7.0[facility] HospitalComment on above:Performed By: #### CBC ####[facility] Rgmoehlksu479[address] [place], [place] [address]Dr.Selenalan ChangErythrocyte distribution width (RBC) [Ratio]13.6 %Normal 11.0-15.0The [facility] CenterComment on above:Performed By: #### CBC ####[facility] Jxnghmugin[address] [place], [place] [address]Dr. Selenaneil DeuceHematocrit (Bld) [Volume fraction]32.6 %Critically low36.0-48.0The [facility] CenterComment on above:Performed By: #### CBC ####[facility] Yhfygnzdmg7918[address] [place], [place] [address]Dr.Selenaneil ChangHemoglobin (Bld) [Mass/Vol]9.5 g/dLCritically low12.0-16.0The [facility] HospitalComment on above:Performed By: #### CBC ####[facility] Jvpfkhtbda8376[address] [place], [place] [address]Dr.Yilan ChangIG #0.03 10e3/ulNormal0.00-0.03The [facility] CenterComment on above:Performed By: #### CBC ####[facility] Aqhabfzrji137[address] [place], [place] [address]Dr.Airam ChangIG %0.4 %Normal 0.0-0.5The [facility] CenterComment on above:Performed By: #### CBC ####[facility] Meztowuohw16[address] [place], [place] [address]Dr.Selenaneil ChangLYMPH #1.4 103/ulNormal1.2-3.8The [facility] CenterComment on above:Performed By: #### CBC ####[facility] Zuctjpmapn6960[address] [place], [place] [address]Dr.Selenaneil DeuceLymphocytes/100 WBC (Bld)18.2 %Critically low20.5-60.0The [facility] CenterComment on above:Performed By: #### CBC ####[facility] Mlejnbfsmy3575[address] [place], [place] [address]Dr.Selenaneil ChangMANUAL DIFF REQ NONormalThe [facility] CenterComment on above:Performed By: #### CBC ####[facility] Pyduhnntdh8[address] [place], [place] [address]Dr. Airam TripathiMCH (RBC) [Entitic mass]29.5 cyCvfsgk11.7-34.0The [facility] Comment on above:Performed By: #### CBC ####[facility] [address]rfxukljbx[address] [place] [address]Dr.Airam CoxHC (RBC) [Mass/Vol]29.1 g/dL Critically low29.9-35.2The [facility] CenterComment on above:Performed By: #### CBC ####[facility] Dikwrqpcmw[address] [place] [address]Dr. Airam TripathiMCV (RBC) [Entitic vol]101.2 fLCritically high81.0-99.0The [facility] HospitalComment on above:Performed By: #### CBC ####[facility] Lmrvczdgbo[address] [place], [place] [address]Dr.Airam TripathiMONO #0.6 103/ulNormal0.3-0.8The [facility] CenterComment on above:Performed By: #### CBC ####[facility] [facility] [address]vfdhinvfd[address] [place], [place] [address]Dr. Airam TripathiMonocytes/100 WBC (Bld)7.9 %Normal1.7-12.0[facility] Comment on above:Performed By: #### CBC ####[facility] Uihmyvgcwb4[address] [place], [place] [address]Dr.Airam TripathiNEUT #5.5 103/ulNormal1.4-6.5 The [facility] CenterComment on above:Performed By: #### CBC ####[facility] Rspypdmglr4116[address] [place], [place] [address]Dr.Airam Tripathi Neutrophils/100 WBC (Bld)70.8 %Cbllgt02.0-75.0The [facility] CenterComment on above:Performed By: #### CBC ####[facility] Fssbgnrnwx8818[address] [place], [place] [address]Dr.Airam TripathiPlatelet mean volume (Bld) [Entitic vol] 9.6 fLNormal9.5-13.5The [facility] CenterComment on above:Performed By: #### CBC ####[facility] Yvolxfotbj9194[address] [place], [place] [address]Dr. Airam TripathiPLT265 103/uhJgetvp670-057Rbo [facility] CenterComment on above: Performed By: #### CBC ####[facility] R[address]epsdccj[address] [place] [address]Dr.Yineil ChangRBC3.22 106/ulCritically low4.20-5.40The [facility] CenterComment on above:Performed By: #### CBC ####[facility] Aqxeupqaxc[address] [place] [address]Dr.Yineil ChangWBC7.8 103/ul Normal4.0-11.0The [facility] CenterComment on above:Performed By: #### CBC ####[facility] Qsshodgpdc1306[address] [place], [place] [address]Dr. Yilan ChangPROF 14(COMP METB)on 41-63-1975Iskjupw [Mass/Vol]2.9 g/dLCritically low3.4-5.0The [facility] CenterComment on above:Performed By: #### CMP ####[facility] Pilzybcquv5520[address] [place], [place] [address]Dr. Airam ChangAlbumin/Globulin [Mass ratio]0.9 {ratio}NormalThe [facility] Comment on above:Performed By: #### CMP ####[facility] Wauhlavotw74[address] [place], [place] [address]Dr.Yilan ChangALP [Catalytic activity/Vol] 176 U/LCritically uipd73-698Ueg [facility] CenterComment on above:Performed By: #### CMP ####[facility] Yvcuccooif8517[address] [place], [place] [address]Dr.Yilan ChangALT [Catalytic activity/Vol]19 U/ZDegtfo82-92Trm [facility] CenterComment on above:Performed By: #### CMP ####[facility] Fkndxjwmfq9057[address] [place], [place] [address]Dr.Selenalan ChangAnion gap [Moles/Vol]12.6 mmol/LNormalThe [facility] CenterComment on above:Performed By: #### CMP ####[facility] Nkxbyfrpid090[address] [place], [place] [address]Dr.Yilan ChangAST [Catalytic activity/Vol]25 U/YSttapo36-96Tmv [facility] CenterComment on above:Performed By: #### CMP ####[facility] Wslyxcqbhk8330[address] [place], [place] [address]Dr.Yilan ChangBilirubin [Mass/Vol]0.2 mg/dLNormal0.2-1.0The [facility] CenterComment on above:Performed By: #### CMP ####[facility] Veahtbtjks028[address] [place], [place] [address]Dr.Yilan ChangCalcium [Mass/Vol]8.5 mg/dLNormal8.5-10.1The [facility] CenterComment on above:Performed By: #### CMP ####[facility] Byngtdnfom9216[address] [place], [place] [address]Dr.Yilan ChangChloride [Moles/Vol]101 mmol/WUqexdu44-165Pig [facility] CenterComment on above:Performed By: #### CMP ####[facility] Zcooftgycz997[address] [place], [place] [address]Dr.Yilan ChangCO2 [Moles/Vol]25.9 mmol/UKwcvhz37.0-32.0The [facility] CenterComment on above:Performed By: #### CMP ####[facility] Humsskbxah246[address] [place], [place] [address]Dr.Yilan ChangCreatinine [Mass/Vol]1.11 mg/dLCritically high0.55-1.02The [facility] CenterComtr[facility] on above:Performed By: #### CMP ####[facility] Wlibwlzakf[address] [place], [place] [address]Dr.Yilan ChangEGFR-AF YEMENI>60Normal>=60The [facility] CenterComment on above:Performed By: #### CMP ####[facility] Yalmankdyh168[address] [place], [place] [address]Dr.Yilan ChangEGFR-NON AF LULDMYQC36 mL/min/1.15l9Htgmaddxpe low>=60The [facility] CenterComment on above: Performed By: #### CMP ####[facility] Gqwsksjwxt9504[address] [place], [place] [address]Dr.Yilan ChangGlobulin (S) [Mass/Vol]3.2 g/dLNormalThe [facility] HospitalComment on above:Performed By: #### CMP ####[facility] Lznyrkjnlm7857[address] [place], [place] [address]Dr.Yineil ChangGlucose [Mass/Vol]80 mg/qAZwhrms92-066Idl [facility] CenterComment on above:Performed By: #### CMP ####[facility] Xjezchicoz9428[address] [place], [place] [address]Dr.Yilan ChangPotassium [Moles/Vol]3.5 mmol/LNormal3.5-5.1The [facility] CenterComment on above:Performed By: #### CMP ####[facility] Nkonbyjdjt636[address] [place], [place] [address]Dr.Yilan ChangProtein [Mass/Vol]6.1 g/dLCritically low6.4-8.2The [facility] CenterComment on above: Performed By: #### CMP ####[facility] Ywehbxzzli3220[address] [place], [place] [address]Dr.Yilan ChangSodium [Moles/Vol]136 mmol/LNormal 136-145The [facility] CenterComment on above:Performed By: #### CMP ####[facility] Gplfacegze613[address] [place], [place] [address]Dr.Selenalan ChangUrea nitrogen [Mass/Vol]31.0 mg/dLCritically high7.0-18.0The [facility] CenterComment on above:Performed By: #### CMP ####[facility] Silelcctmd094[address] [place], [place] [address]Dr.Yilan ChangUrea nitrogen/Creatinine [Mass ratio] 27.9 mg/mgNormWhite HospitalComment on above:Performed By: #### CMP ####[facility] Nebyllvmdy5334[address] [place], [place] [address]Dr. Airam ChangOSMOLALITYon 36-23-4367Cfnarqqpvo [Osmolality]285 mosm/kgNormal 275-295The [facility] CenterComment on above:Performed By: #### OSMO ####[facility] Ndhfcuqkrf2401[address] [place], [place] [address]Dr. Yilan ChangCBC AUTO DIFFon 24-55-1134QKRW #0.0 103/ulNormal0.0-0.1The [facility] CenterComment on above:Performed By: #### CBC ####[facility] Rwawzaczup409[address] [place], [place] [address]Dr.Airam ChangBasophils/100 WBC (Bld)0.2 %Normal0.2-2.0The [facility] CenterComment on above:Performed By: #### CBC ####[facility] Ldgvpnorgb289[address] [place], [place] [address]Dr.Selenalan ChangEO #0.1 103/ulNormal0.0-0.7The [facility] CenterComment on above:Performed By: #### CBC ####[facility] Heqbdsptif3101[address] [place], [place] [address]Dr.Airam ChangEosinophils/100 WBC (Bld)1.4 %Normal 0.9-7.0The [facility] CenterComment on above:Performed By: #### CBC ####[facility] Rrlnnpdlgd750[address] [place], [place] [address]Dr.Airam Tripathi Erythrocyte distribution width (RBC) [Ratio]13.0 %Fxzkkk83.0-15.0The [facility] CenterComment on above:Performed By: #### CBC ####[facility] Mataddmpcv7466[address] [place], [place] [address]Dr.Airam TripathiHematocrit (Bld) [Volume fraction]29.3 %Critically low36.0-48.0The [facility] CenterComment on above:Performed By: #### CBC ####[facility] Pwvxpynwmn913[address] [place], [place] [address]Dr.Airam TripathiHemoglobin (Bld) [Mass/Vol]10.3 g/dL Critically low12.0-16.0The [facility] CenterComment on above:Performed By: #### CBC ####[facility] Zjzaedqrxx6507[address] [place], [place] [address]Dr. Airam ChangIG #0.05 10e3/ulCritically high0.00-0.03The [facility] CenterComment on above:Performed By: #### CBC ####[facility] Hwsbfomars[address] [place] [address]Dr.Airam TripathiIG %0.6 %Critically high0.0-0.5The [facility] CenterComment on above:Performed By: #### CBC ####[facility] [address]uipf[address] [place] [address]Dr.Airam TripathiLYMPH #0.9 103/ulCritically low1.2-3.8The [facility] CenterComment on above:Performed By: #### CBC ####[facility] Tnwivgwsno2[address] [place] [address]Dr.Airam TripathiLymphocytes/100 WBC (Bld)10.6 %Critically low20.5-60.0The [facility] CenterComment on above:Performed By: #### CBC ####[facility] Mwcgpfsdwt2958[address] [place], [place] [address]Dr.Airam TripathiMANUAL DIFF REQ NONormalThe [facility] CenterComment on above:Performed By: #### CBC ####[facility] Dztripotth5996[address] [place], [place] [address]Dr. Airam DeuceH (RBC) [Entitic mass]29.3 noRbifce94.7-34.0[facility] Comment on above:Performed By: #### CBC ####[facility] Mlkifjwbbb8868[address] [place], [place] [address]Dr.Airam DeuceHC (RBC) [Mass/Vol]35.2 g/dL Gyaorb59.9-35.2[facility] HospitalComment on above:Performed By: #### CBC ####[facility] Vzimqvgmdx4595[address] [place], [place] [address]Dr. Airam DeuceV (RBC) [Entitic vol]83.5 hIPqfjay55.0-99.0The [facility] Comment on above:Performed By: #### CBC ####[facility] Vuiucutalj9632[address] [place], [place] [address]Dr.Airam KodakO #0.5 103/ulNormal0.3-0.8 The [facility] HospitalComment on above:Performed By: #### CBC ####[facility] Jamchazetd4[address] [place] [address]Dr.Airam Tripathi Monocytes/100 WBC (Bld)5.1 %Normal1.7-12.0The [facility] CenterComment on above: Performed By: #### CBC ####[facility] Wvighjhqgy3686[address] [place], [place] [address]Dr.Airam TripathiNEUT #7.3 103/ulCritically high1.4-6.5 The [facility] CenterComment on above:Performed By: #### CBC ####[facility] Oigriyvafk1727[address] [place], [place] [address]Dr.Airam Tripathi Neutrophils/100 WBC (Bld)82.1 %Critically high43.0-75.0The [facility] Comment on above:Performed By: #### CBC ####[facility] Fjctpchymy3000[address] [place], [place] [address]Dr.Airam TripathiPlatelet mean volume (Bld) [Entitic vol]8.9 fLCritically low9.5-13.5The [facility] CenterComment on above: Performed By: #### CBC ####[facility] Lwepvcycuo327[address] [place], [place] [address]Dr.Airam TripathiPLT290 103/sgIinoxz468-268Nla [facility] CenterComment on above:Performed By: #### CBC ####[facility] Tffitmvohk726[address] [place], [place] [address]Dr.Airam TripathiRBC3.51 106/ul Critically low4.20-5.40The [facility] CenterComment on above:Performed By: #### CBC ####[facility] Qakfbjkykv1899[address] [place], [place] [address]Dr. Airam TripathiWBC8.9 103/ulNormal4.0-11.0[facility] HospitalComment on above: Performed By: #### CBC ####[facility] Ndalkezrxr417[address] [place], [place] [address]Dr.Airam TripathiPROF 14(COMP METB)on 30-81-7294Khfnutn [Mass/Vol]3.2 g/dLCritically low3.4-5.0The [facility] CenterComment on above: Performed By: #### CMP ####[facility] Xrdsbkoupq9554[address] [place], [place] [address]Dr.Yilan ChangAlbumin/Globulin [Mass ratio]0.9 {ratio} NormalThe [facility] CenterComment on above:Performed By: #### CMP ####[facility] Seqybusiri3127[address] [place], [place] [address]Dr.Yilan ChangALP [Catalytic activity/Vol]194 U/LCritically bjyn68-562Ipe [facility] CenterComment on above:Performed By: #### CMP ####[facility] Mwasvesfrz4024[address] [place], [place] [address]Dr.Yilan ChangALT [Catalytic activity/Vol]19 U/LNormal 14-59The [facility] CenterComment on above:Performed By: #### CMP ####[facility] Lracnkqtdq6507[address] [place], [place] [address]Dr.Yilan ChangAnion gap [Moles/Vol]11.3 mmol/LNormalThe [facility] CenterComment on above:Performed By: #### CMP ####[facility] Qrybgyjwmo5839[address] [place], [place] [address]Dr.Yilan ChangAST [Catalytic activity/Vol]24 U/SCzouak64-77Ywu [facility] CenterComment on above:Performed By: #### CMP ####[facility] Bsujmmcjwd3848[address] [place], [place] [address]Dr.Yilan ChangBilirubin [Mass/Vol]0.2 mg/dLNormal0.2-1.0The [facility] CenterComment on above:Performed By: #### CMP ####[facility] Vugzqnozmd3886[address] [place], [place] [address]Dr.Yilan ChangCalcium [Mass/Vol]8.7 mg/dLNormal8.5-10.1The [facility] CenterComment on above:Performed By: #### CMP ####[facility] Yaszubayfg284[address] [place], [place] [address]Dr.Yilan ChangChloride [Moles/Vol]101 mmol/CJmoixi23-658Kry [facility] CenterComment on above:Performed By: #### CMP ####[facility] Ddafixakzc635[address] [place], [place] [address]Dr.Selenalan ChangCO2 [Moles/Vol]27.2 mmol/YAffwfi60.0-32.0The [facility] CenterComment on above:Performed By: #### CMP ####[facility] Wlnkjifzbw6130[address] [place], [place] [address]Dr.Airam ChangCreatinine [Mass/Vol]1.17 mg/dLCritically high0.55-1.02The [facility] CenterComment on above:Performed By: #### CMP ####[facility] Iwbwfcpmzr1945[address] [place], [place] [address]Dr.Selenalan ChangEGFR-AF RKVUIRER73 mL/min/1.73m2 Critically low>=60The [facility] CenterComment on above:Performed By: #### CMP ####[facility] Ddmpvkyqtf0828[address] [place], [place] [address]Dr. Selenalan ChangEGFR-NON AF XYNAKYCZ78 mL/min/1.77a8Smitcwhewe low>=60The [facility] CenterComment on above:Performed By: #### CMP ####[facility] Mimiznkwtc8206[address] [place], [place] [address]Dr.Airam ChangGlobulin (S) [Mass/Vol]3.5 g/dLNormalThe [facility] CenterComment on above:Performed By: #### CMP ####[facility] Mygvbxzwds8978[address] [place], [place] [address]Dr.Selenalan ChangGlucose [Mass/Vol]86 mg/pQWiuurx17-423God [facility] Comment on above:Performed By: #### CMP ####[facility] Dabbfwlmef7564[address] [place], [place] [address]Dr.Selenalan ChangPotassium [Moles/Vol]5.5 mmol/LCritically high3.5-5.1The [facility] CenterComment on above:Performed By: #### CMP ####[facility] Dweliyphan[address] [place] [address]Dr.Airam ChangProtein [Mass/Vol]6.7 g/dLNormal6.4-8.2The [facility] Comment on above:Performed By: #### CMP ####[facility] Fmvixqffku513[address] [place], [place] [address]Dr.Airam ChangSodium [Moles/Vol]134 mmol/L Critically ant355-634Pwt [facility] CenterComment on above:Performed By: #### CMP ####[facility] Erovnoetmc499[address] [place], [place] [address]Dr. Selenalan ChangUrea nitrogen [Mass/Vol]26.0 mg/dLCritically high7.0-18.0The [facility] CenterComment on above:Performed By: #### CMP ####[facility] Qorcvabkck1805[address] [place], [place] [address]Dr.Selenalan ChangUrea nitrogen/Creatinine [Mass ratio]22.2 mg/mgNormalThe [facility] CenterComment on above:Performed By: #### CMP ####[facility] Zzoduxvndu2823[address] [place], [place] [address]Dr.Airam ChangOSMOLALITYon 51-33-1350Cmthollvrp [Osmolality]273 mosm/kgCritically ktx841-292Odj [facility] CenterComment on above:Performed By: #### OSMO ####[facility] Rmtdjrduvt4328[address] [place], [place] [address]Dr. Selenaneil DeuceCBC AUTO DIFFon 59-63-5977FSCJ #0.0 103/ulNormal0.0-0.1The [facility] CenterComment on above:Performed By: #### CBC ####[facility] Wyifqibvzz5055[address] [place], [place] [address]Dr. Airam ChangBasophils/100 WBC (Bld)0.4 %Normal0.2-2.0The [facility] CenterComment on above:Performed By: #### CBC ####[facility] Gcpjlozdil1209[address] [place], [place] [address]Dr.Selenalan ChangEO #0.1 103/ulNormal0.0-0.7The [facility] HospitalComment on above:Performed By: #### CBC ####[facility] Jmqyufoysn5850[address] [place], [place] [address]Dr.Airam ChangEosinophils/100 WBC (Bld)1.6 %Normal0.9-7.0The [facility] CenterComment on above:Performed By: #### CBC ####[facility] Kijwoxgkjs6049[address] [place], [place] [address]Dr.Airam ChangErythrocyte distribution width (RBC) [Ratio]13.1 %Normal 11.0-15.0The [facility] HospitalComment on above:Performed By: #### CBC ####[facility] Wwoyaerpcd4520[address] [place], [place] [address]Dr. Airam ChangHematocrit (Bld) [Volume fraction]33.7 %Critically low36.0-48.0The [facility] HospitalComment on above:Performed By: #### CBC ####[facility] Lponffdbpy395[address] [place], [place] [address]Dr.Airam ChangHemoglobin (Bld) [Mass/Vol]9.9 g/dLCritically low12.0-16.0The [facility] HospitalComment on above:Performed By: #### CBC ####[facility] Ejmxpjxugq209[address] [place], [place] [address]Dr.Airam ChangIG #0.05 10e3/ulCritically high0.00-0.03 The [facility] CenterComment on above:Performed By: #### CBC ####[facility] Ocoqpmsxam1614[address] [place], [place] [address]Dr.Airam ChangIG % 0.6 %Critically high0.0-0.5The [facility] HospitalComment on above:Performed By: #### CBC ####[facility] Tyxjkfyegp7865[address] [place], [place] [address]Dr.Selenalan ChangLYMPH #1.2 103/ulNormal1.2-3.8The [facility] HospitalComment on above:Performed By: #### CBC ####[facility] Mztemjkfeo299[address] [place], [place] [address]Dr.Yilan ChangLymphocytes/100 WBC (Bld)15.5 % Critically low20.5-60.0The [facility] CenterComment on above:Performed By: #### CBC ####[facility] Zbmyxfhzig0539[address] [place], [place] [address]Dr. Airam TripathiMANUAL DIFF REQNONormalThe [facility] CenterComment on above: Performed By: #### CBC ####[facility] Fkiymlxinf3436[address] [place], [place] [address]Dr.Airam TripathiH (RBC) [Entitic mass]28.7 pgNormal 26.7-34.0The [facility] HospitalComment on above:Performed By: #### CBC ####[facility] Elgvqyrnrd595[address] [place], [place] [address]Dr. Airam TripathiHC (RBC) [Mass/Vol]29.4 g/dLCritically low29.9-35.2The [facility] CenterComment on above:Performed By: #### CBC ####[facility] Lndqyqydro604[address] [place], [place] [address]Dr.Airam TripathiV (RBC) [Entitic vol]97.7 bOUozwif56.0-99.0The [facility] CenterComment on above: Performed By: #### CBC ####[facility] Gmtbksqjpq6790[address] [place], [place] [address]Dr.Airam TripathiMONO #0.6 103/ulNormal0.3-0.8The [facility] HospitalComment on above:Performed By: #### CBC ####[facility] Orrfqubrdc6278[address] [place], [place] [address]Dr.Airam TripathiMonocytes/100 WBC (Bld)7.7 %Normal1.7-12.0The [facility] CenterComment on above:Performed By: #### CBC ####[facility] Jwguhpndzv5956[address] [place], [place] [address]Dr.Airam TripathiNEUT #5.9 103/ulNormal1.4-6.5The [facility] HospitalComment on above:Performed By: #### CBC ####[facility] Q[address]jyrfhlm[address] [place] [address]Dr.Selenaneil DeuceNeutrophils/100 WBC (Bld)74.2 %Normal 43.0-75.0The [facility] CenterComment on above:Performed By: #### CBC ####[facility] Rvzeshfbjk[address] [place] [address]Dr. Airam DeucePlatelet mean volume (Bld) [Entitic vol]9.4 fLCritically low9.5-13.5 The [facility] CenterComment on above:Performed By: #### CBC ####[facility] Thagloejek5637[address] [place], [place] [address]Dr.Airam JbpsoNPP544 103/mfIibtgw065-678Npv [facility] CenterComment on above:Performed By: #### CBC ####[facility] Ebsmrcwnwr6968[address] [place], [place] [address]Dr. Airam ChangRBC3.45 106/ulCritically low4.20-5.40The [facility] CenterComment on above:Performed By: #### CBC ####[facility] Dbzjusrewg5622[address] [place], [place] [address]Dr.Airam TripathiWBC7.9 103/ulNormal4.0-11.0The [facility] CenterComment on above:Performed By: #### CBC ####[facility] Qojgucyliv0012[address] [place], [place] [address]Dr.Airam TripathiPROF 14(COMP METB)on 18-98-7394Goqxpdo [Mass/Vol]3.4 g/dLNormal3.4-5.0The [facility] Comment on above:Performed By: #### CMP ####[facility] Jkekhrsyle0059[address] [place], [place] [address]Dr.Airam TripathiAlbumin/Globulin [Mass ratio] 1.1 {ratio}NormalThe [facility] CenterComment on above:Performed By: #### CMP ####[facility] Oswdcardql039[address] [place], [place] [address]Dr. Airam TripathiALP [Catalytic activity/Vol]197 U/LCritically hasm10-309Qoc [facility] CenterComment on above:Performed By: #### CMP ####[facility] Uorraqbnei[address] [place] [address]Dr.Yilan ChangALT [Catalytic activity/Vol]18 U/GNgedlg86-65Yjg [facility] CenterComment on above:Performed By: #### CMP ####[facility] Qwxkmqfvkx8[address] [place] [address]Dr.Yilan ChangAnion gap [Moles/Vol]12.3 mmol/LNormalThe [facility] Comment on above:Performed By: #### CMP ####[facility] Uriejprbmv[address] [place], [place] [address]Dr.Yilan ChangAST [Catalytic activity/Vol]26 U/QOfxune91-75Xay [facility] CenterComtr[facility] on above:Performed By: #### CMP ####[facility] Ivrxihtszi0940[address] [place], [place] [address]Dr. Yilan ChangBilirubin [Mass/Vol]0.3 mg/dLNormal0.2-1.0The [facility] Comment on above:Performed By: #### CMP ####[facility] Bomymdgqsi8968[address] [place], [place] [address]Dr.Yilan ChangCalcium [Mass/Vol]8.6 mg/dL Normal8.5-10.1The [facility] CenterComment on above:Performed By: #### CMP ####[facility] Cubguxfrys4048[address] [place], [place] [address]Dr. Yilan ChangChloride [Moles/Vol]96 mmol/LCritically scr34-418Sco [facility] CenterComment on above:Performed By: #### CMP ####[facility] Uignfmjmwr[address] [place], [place] [address]Dr.Yilan ChangCO2 [Moles/Vol] 27.8 mmol/LFryejp77.0-32.0The [facility] CenterComment on above:Performed By: #### CMP ####[facility] Fzbnwajgys4649[address] [place], [place] [address]Dr.Yilan ChangCreatinine [Mass/Vol]1.55 mg/dLCritically high0.55-1.02The [facility] CenterComment on above:Performed By: #### CMP ####[facility] [address]vkehtrhuv[address] [place] [id number].Yilan ChangEGFR-AF AQHDDYYT97 mL/min/1.96d9Popuvatogd low>=60The [facility] CenterComtr[facility] on above: Performed By: #### CMP ####[facility] Njolxsyttk[address] [place] [address]Dr.Yilan ChangEGFR-NON AF TWOBBHIF89 mL/min/1.73m2 Critically low>=60The [facility] CenterComment on above:Performed By: #### CMP ####[facility] Qhhpzwydgl05[address] [place] [address]Dr. Airam ChangGlobulin (S) [Mass/Vol]3.2 g/dLNormalThOhioHealth Shelby HospitalComtrinity [facility] on above:Performed By: #### CMP ####[facility] Wbgpyxijzw[address] [place], [place] [address]Dr.Airam ChangGlucose [Mass/Vol]87 mg/yTRdlaji13-975 [facility] on above:Performed By: #### CMP ####[facility] Xithardgvk8154[address] [place], [place] [address]Dr.Airam Tripathi Potassium [Moles/Vol]5.1 mmol/LNormal3.5-5.1[facility] on above:Performed By: #### CMP ####[facility] Sprsyhgnha9[address] [place], [place] [address]Dr.Airam ChangProtein [Mass/Vol]6.6 g/dLNormal6.4-8.2 [facility]Com[facility] on above:Performed By: #### CMP ####[facility] Owtffcyhiy37[address] [place], [place] [address]Dr.Airam ChangSodium [Moles/Vol]131 mmol/LCritically jsh817-071QskChillicothe [facility] on above:Performed By: #### CMP ####[facility] Aestxwcjef8[address] [place] [address]Dr.Airam ChangUrea nitrogen [Mass/Vol]31.0 mg/dL Critically high7.0-18.0The [facility] CenterComment on above:Performed By: #### CMP ####[facility] Gvflaeeqxa[address] [place], [place] [address]Dr. Yilan ChangUrea nitrogen/Creatinine [Mass ratio]20.0 mg/mgNormalThe [facility] CenterComment on above:Performed By: #### CMP ####[facility] Bvzbiwlhwv68[address] [place], [place] [address]Dr.Airam ChangOSMOLALITYon 24-87-4370Zkhbyvrvek [Osmolality]281 mosm/ttMrbtht257-923Efd [facility] Comment on above:Performed By: #### OSMO ####[facility] Chkucijasl[address] [place], [place] [address]Dr. Selenaneil ChangCBC AUTO DIFFon 06-29-2022 BASO #0.0 103/ulNormal0.0-0.1The [facility] CenterComment on above:Performed By: #### CBC ####[facility] Rhvxosvhfd4037[address] [place], [place] [address]Dr.Yilan ChangBasophils/100 WBC (Bld)0.3 %Normal0.2-2.0The [facility] CenterComment on above:Performed By: #### CBC ####[facility] Zjbznthngp77[address] [place], [place] [address]Dr.Yilan ChangEO #0.2 103/ul Normal0.0-0.7The [facility] CenterComment on above:Performed By: #### CBC ####[facility] Ovszwnffjq[address] [place], [place] [address]Dr. Yilan ChangEosinophils/100 WBC (Bld)2.3 %Normal0.9-7.0The [facility] Comment on above:Performed By: #### CBC ####[facility] Nqsksmdhiv10[address] [place], [place] [address]Dr.Yilan ChangErythrocyte distribution width (RBC) [Ratio]13.2 %Fpcynu51.0-15.0The [facility] CenterComment on above: Performed By: #### CBC ####[facility] Tblihbsfcc[address] [place], [place] [address]Dr.Airam TripathiHematocrit (Bld) [Volume fraction]28.2 % Critically low36.0-48.0The [facility] CenterComment on above:Performed By: #### CBC ####[facility] Wbxwboxopp1834[address] [place], [place] [address]Dr. Airam ChangHemoglobin (Bld) [Mass/Vol]9.1 g/dLCritically low12.0-16.0The [facility] HospitalComment on above:Performed By: #### CBC ####[facility] Lxyvzudwiw3144[address] [place], [place] [address]Dr.Yilan ChangIG #0.03 10e3/ulNormal0.00-0.03The [facility] CenterComment on above:Performed By: #### CBC ####[facility] Veqsevtpjq9155[address] [place], [place] [address]Dr. Airam ChangIG %0.4 %Normal0.0-0.5The [facility] CenterComment on above:Performed By: #### CBC ####[facility] Qhpsmaffgg2185[address] [place], [place] [address]Dr.Airam ChangLYMPH #1.0 103/ulCritically low1.2-3.8The [facility] CenterComment on above:Performed By: #### CBC ####[facility] Efdzmxutlm8750[address] [place], [place] [address]Dr.Airam TripathiLymphocytes/100 WBC (Bld)12.8 %Critically low20.5-60.0The [facility] HospitalComment on above: Performed By: #### CBC ####[facility] Puzaqzihev5936[address] [place], [place] [address]Dr.Selenalan DeuceMANUAL DIFF REQNONormalThe [facility] CenterComment on above:Performed By: #### CBC ####[facility] Wueytogscm[address] [place], [place] [address]Dr.Airam TripathiMCH (RBC) [Entitic mass]29.9 hxBpbwny91.7-34.0The [facility] HospitalComment on above: Performed By: #### CBC ####[facility] [address] [place] [address]Dr.Airam TripathiMCHC (RBC) [Mass/Vol]32.3 g/dLNormal 29.9-35.2The [facility] CenterComment on above:Performed By: #### CBC ####[facility] Gvlmekyqgf27[address] [place] [address]Dr. Airam TripathiMCV (RBC) [Entitic vol]92.8 tKKvhhah41.0-99.0The [facility] Comment on above:Performed By: #### CBC ####[facility] Vyrgeupfec9114[address] [place], [place] [address]Dr.Airam TripathiMONO #0.5 103/ulNormal0.3-0.8 The [facility] CenterComment on above:Performed By: #### CBC ####[facility] Htuimfqmfv7724[address] [place], [place] [address]Dr.Airam Tripathi Monocytes/100 WBC (Bld)6.0 %Normal1.7-12.0The [facility] CenterComment on above: Performed By: #### CBC ####[facility] Svncrivsxo832[address] [place], [place] [address]Dr.Airam TripathiNEUT #6.0 103/ulNormal1.4-6.5The [facility] CenterComment on above:Performed By: #### CBC ####[facility] Ynwxcbuxdu7856[address] [place], [place] [address]Dr.Airam TripathiNeutrophils/100 WBC (Bld)78.2 %Critically high43.0-75.0The [facility] CenterComment on above: Performed By: #### CBC ####[facility] Tbmwpzpjaa407[address] [place], [place] [address]Dr.Airam TripathiPlatelet mean volume (Bld) [Entitic vol] 9.0 fLCritically low9.5-13.5The [facility] CenterComment on above:Performed By: #### CBC ####[facility] Lrwagavifs2160[address] [place], [place] [address]Dr.Airam TripathiPLT332 103/eoYevpmu637-934Sba [facility] CenterComment on above:Performed By: #### CBC ####[facility] Oxbqwhyjms[address] [place] [address]Dr.Yineil ChangRBC3.04 106/ulCritically low4.20-5.40The [facility] CenterComment on above:Performed By: #### CBC ####[facility] Bpzirxluhb5666[address] [place], [place] [address]Dr.Yineil ChangWBC7.7 103/ul Normal4.0-11.0The [facility] CenterComment on above:Performed By: #### CBC ####[facility] Qkktywrrxw2065[address] [place], [place] [address]Dr. Selenalan ChangPROF 14(COMP METB)on 36-63-0406Hbrxcbd [Mass/Vol]3.2 g/dLCritically low3.4-5.0The [facility] CenterComment on above:Performed By: #### CMP ####[facility] Fndxvljieq9494[address] [place], [place] [address]Dr. Airam ChangAlbumin/Globulin [Mass ratio]0.9 {ratio}NormalThe [facility] Comment on above:Performed By: #### CMP ####[facility] Idteiurchb3304[address] [place], [place] [address]Dr.Selenalan ChangALP [Catalytic activity/Vol] 135 U/LCritically bdpb24-245Dbg [facility] CenterComment on above:Performed By: #### CMP ####[facility] Lihgzvrhjb2107[address] [place], [place] [address]Dr.Yilan ChangALT [Catalytic activity/Vol]25 U/DQvlsiy24-20Rur [facility] CenterComment on above:Performed By: #### CMP ####[facility] Xorjnsivwd5504[address] [place], [place] [address]Dr.Airam ChangAnion gap [Moles/Vol]9.1 mmol/LNormalThe [facility] CenterComment on above:Performed By: #### CMP ####[facility] Wnlslcjqad7779[address] [place], [place] [address]Dr.Yilan ChangAST [Catalytic activity/Vol]34 U/XBrznou73-77Kui [facility] CenterComment on above:Performed By: #### CMP ####[facility] Oszbpnquyd9828[address] [place], [place] [address]Dr.Yilan ChangBilirubin [Mass/Vol]0.3 mg/dLNormal0.2-1.0The [facility] CenterComment on above:Performed By: #### CMP ####[facility] Lgncjjivlm1499[address] [place], [place] [address]Dr.Yilan ChangCalcium [Mass/Vol]8.6 mg/dLNormal8.5-10.1The [facility] CenterComment on above:Performed By: #### CMP ####[facility] Tnfxtopzer3845[address] [place], [place] [address]Dr.Yilan ChangChloride [Moles/Vol]99 mmol/SQqdrhw97-526Gov [facility] CenterComment on above:Performed By: #### CMP ####[facility] Flqomrnuyx36[address] [place], [place] [address]Dr.Yilan ChangCO2 [Moles/Vol]29.1 mmol/HLiwlvu99.0-32.0The [facility] CenterComment on above:Performed By: #### CMP ####[facility] Ndbefmdyjk818[address] [place], [place] [address]Dr.Yilan ChangCreatinine [Mass/Vol]1.40 mg/dLCritically high0.55-1.02The [facility] CenterComment on above:Performed By: #### CMP ####[facility] Ozijbgrytj4130[address] [place], [place] [address]Dr.Yilan ChangEGFR-AF GXRTEKFI76 mL/min/1.73m2 Critically low>=60The [facility] CenterComment on above:Performed By: #### CMP ####[facility] Scwcdnwmos8454[address] [place], [place] [address]Dr. Yilan ChangEGFR-NON AF TPQLMQBA06 mL/min/1.08k8Diztcfipgv low>=60The [facility] CenterComment on above:Performed By: #### CMP ####[facility] Tnsxhjlena1423[address] [place], [place] [address]Dr.Yilan ChangGlobulin (S) [Mass/Vol]3.4 g/dLNormWhite HospitalComment on above:Performed By: #### CMP ####[facility] Swtaqhyacr4609[address] [place], [place] [address]Dr.Yilan ChangGlucose [Mass/Vol]83 mg/oIAchcez28-200Sgu [facility] Comment on above:Performed By: #### CMP ####[facility] Tfkndzpgyw687[address] [place], [place] [address]Dr.Selenalan ChangPotassium [Moles/Vol]4.2 mmol/LNormal3.5-5.1The [facility] CenterComment on above:Performed By: #### CMP ####[facility] Ihkdsasuhz5689[address] [place], [place] [address]Dr. Yilan ChangProtein [Mass/Vol]6.6 g/dLNormal6.4-8.2The [facility] CenterComment on above:Performed By: #### CMP ####[facility] Vgckuoaiof3697[address] [place], [place] [address]Dr.Airam ChangSodium [Moles/Vol]133 mmol/LCritically dqv910-888Ynz [facility] CenterComment on above:Performed By: #### CMP ####[facility] Yskbhtybjx7485[address] [place], [place] [address]Dr. Selenalan ChangUrea nitrogen [Mass/Vol]37.0 mg/dLCritically high7.0-18.0The [facility] CenterComment on above:Performed By: #### CMP ####[facility] Ttezrmmaim4189[address] [place], [place] [address]Dr.Yilan ChangUrea nitrogen/Creatinine [Mass ratio]26.4 mg/mgNormWhite HospitalComment on above:Performed By: #### CMP ####[facility] Jzcfefpnui8045[address] [place], [place] [address]Dr.Airam ChangBNPon 65-49-7129Ccsuaejfuuf peptide B (Bld) [Mass/Vol]5826.0 pg/mLCritically high<=900.0The [facility] CenterComment on above:Performed By: #### BNP, CMP ####[facility] Lzejltrxpn9799[address] [place], [place] [address]Dr. Airam ChangCBC AUTO DIFFon 16-51-3917MXLY # 0.0 103/ulNormal0.0-0.1The [facility] CenterComment on above:Performed By: #### CBC ####[facility] Zsephstapc1048[address] [place], [place] [address]Dr. Airam ChangBasophils/100 WBC (Bld)0.4 %Normal0.2-2.0The [facility] CenterComment on above:Performed By: #### CBC ####[facility] Fqgkzvyouu524[address] [place], [place] [address]Dr.Yilan ChangEO #0.1 103/ulNormal0.0-0.7The [facility] CenterComment on above:Performed By: #### CBC ####[facility] Dcguvtbrgk8287[address] [place], [place] [address]Dr.Airam ChangEosinophils/100 WBC (Bld)1.3 %Normal0.9-7.0The [facility] CenterComment on above:Performed By: #### CBC ####[facility] Wperjrleji6147[address] [place], [place] [address]Dr.Airam ChangErythrocyte distribution width (RBC) [Ratio]13.4 %Normal 11.0-15.0The [facility] CenterComment on above:Performed By: #### CBC ####[facility] Cpymadhvns[address] [place], [place] [address]Dr. Airam ChangHematocrit (Bld) [Volume fraction]27.3 %Critically low36.0-48.0The [facility] CenterComment on above:Performed By: #### CBC ####[facility] Xuqjxiipju727[address] [place], [place] [address]Dr.Airam ChangHemoglobin (Bld) [Mass/Vol]8.6 g/dLCritically low12.0-16.0The [facility] CenterComment on above:Performed By: #### CBC ####[facility] Affcpbsquz7069[address] [place], [place] [address]Dr.Airam TripathiIG #0.08 10e3/ulCritically high0.00-0.03 The [facility] CenterComment on above:Performed By: #### CBC ####[facility] Hazpknuirl[address] [place] [address]Dr.Airam TripathiIG % 0.8 %Critically high0.0-0.5The [facility] CenterComment on above:Performed By: #### CBC ####[facility] Ckzeyufraj4684[address] [place], [place] [address]Dr.Airam TripathiLYMPH #1.9 103/ulNormal1.2-3.8The [facility] CenterComment on above:Performed By: #### CBC ####[facility] Cwebxzgplw8817[address] [place], [place] [address]Dr.Airam TripathiLymphocytes/100 WBC (Bld)19.3 % Critically low20.5-60.0The [facility] CenterComment on above:Performed By: #### CBC ####[facility] Oqbmktfolo0186[address] [place], [place] [address]Dr. Airam TripathiMANUAL DIFF REQNONormalThe [facility] CenterComment on above: Performed By: #### CBC ####[facility] Bkzswqqnsh9816[address] [place], [place] [address]Dr.Airam TripathiMEDISYS HEALTH NETWORK (RBC) [Entitic mass]29.6 pgNormal 26.7-34.0The [facility] CenterComment on above:Performed By: #### CBC ####[facility] Tglevxwphx[address] [place], [place] [address]Dr. Airam TripathiST. PETER'S [facility] (RBC) [Mass/Vol]31.5 g/nIAkdsmj58.9-35.2The [facility] Comment on above:Performed By: #### CBC ####[facility] Kuxbgucpfn3117[address] [place], [place] [address]Dr.Airam TripathiV (RBC) [Entitic vol]93.8 fL Ihqxwo31.0-99.0The [facility] CenterComment on above:Performed By: #### CBC ####[facility] Zngoofbbum[address] [place] [address]Dr. Airam TripathiMONO #0.6 103/ulNormal0.3-0.8The [facility] CenterComment on above: Performed By: #### CBC ####[facility] Jumqhjmjji5[address] [place] [address]Dr.Yilan ChangMonocytes/100 WBC (Bld)6.5 %Normal 1.7-12.0The [facility] CenterComment on above:Performed By: #### CBC ####[facility] Huawhnlfli4850[address] [place], [place] [address]Dr. Selenalan ChangNEUT #6.9 103/ulCritically high1.4-6.5The [facility] CenterComment on above:Performed By: #### CBC ####[facility] Npkssqlyjt1548[address] [place], [place] [address]Dr.Yilan ChangNeutrophils/100 WBC (Bld)71.7 %Normal 43.0-75.0The [facility] CenterComment on above:Performed By: #### CBC ####[facility] Mnqeaavakn7129[address] [place], [place] [address]Dr. Yilan ChangPlatelet mean volume (Bld) [Entitic vol]8.5 fLCritically low9.5-13.5 The [facility] CenterComment on above:Performed By: #### CBC ####[facility] Hnlicmkvaf940[address] [place], [place] [address]Dr.Selenalan LytmgJVY058 103/rbVatlqc714-987Hbr [facility] CenterComtr[facility] on above:Performed By: #### CBC ####[facility] Pyoxvdrucc2224[address] [place], [place] [address]Dr. Yilan ChangRBC2.91 106/ulCritically low4.20-5.40The [facility] CenterComtrinity health [facility] on above:Performed By: #### CBC ####[facility] Jvxwpwbluz2156[address] [place], [place] [address]Dr.Selenalan ChangWBC9.7 103/ulNormal4.0-11.0The [facility] CenterComment on above:Performed By: #### CBC ####[facility] Tyneekpfnx3[address] [place] [address]Dr.Airam ChangPROF 14(COMP METB)on 55-07-7720Qnxajpq [Mass/Vol]2.8 g/dLCritically low3.4-5.0The [facility] CenterComment on above:Performed By: #### BNP, CMP ####[facility] Pddhzpcbea8[address] [place] [address]Dr. Airam Tripathi Albumin/Globulin [Mass ratio]0.9 {ratio}NormalThe [facility] CenterComment on above:Performed By: #### BNP, CMP ####[facility] Vkfjvdxykz6[address] [place] [address]Dr. Airam ChangALP [Catalytic activity/Vol]125 U/L Critically hlrd28-040Nec [facility] CenterComment on above:Performed By: #### BNP, CMP ####[facility] Msbynsakcl7239[address] [place], [place] [address]Dr. Airam ChangALT [Catalytic activity/Vol]16 U/DOvauwe66-40Hhf [facility] CenterComment on above:Performed By: #### BNP, CMP ####[facility] Hbhjsnygke5850[address] [place], [place] [address]Dr. Airam TripathiAnion gap [Moles/Vol]11.4 mmol/LNormalThe [facility] CenterComment on above:Performed By: #### BNP, CMP ####[facility] Qplcanskii0[address] [place] [address]Dr. Airam ChangAST [Catalytic activity/Vol]23 U/BWnakua97-51Dcz [facility] CenterComment on above:Performed By: #### BNP, CMP ####[facility] Knbhiezcap[address] [place], [place] [address]Dr. Airam Tripathi Bilirubin [Mass/Vol]0.2 mg/dLNormal0.2-1.0The [facility] CenterComment on above: Performed By: #### BNP, CMP ####[facility] Crwzfxikzy1125[address] [place], [place] [address]Dr. Airam ChangCalcium [Mass/Vol]8.1 mg/dLCritically low8.5-10.1The [facility] CenterComment on above:Performed By: #### BNP, CMP ####[facility] Eeitpkrlgd9814[address] [place], [place] [address]Dr. Yilan ChangChloride [Moles/Vol]96 mmol/LCritically yys09-589Awu [facility] CenterComment on above:Performed By: #### BNP, CMP ####[facility] Usmjwlxnss036[address] [place], [place] [address]Dr. Yilan ChangCO2 [Moles/Vol]26.6 mmol/LTllbhh62.0-32.0The [facility] CenterComment on above: Performed By: #### BNP, CMP ####[facility] Stprgojezu5816[address] [place], [place] [address]Dr. Yilan ChangCreatinine [Mass/Vol]1.31 mg/dL Critically high0.55-1.02The [facility] CenterComment on above:Performed By: #### BNP, CMP ####[facility] Bzaaqkutie3125[address] [place], [place] [address]Dr. Yilan ChangEGFR-AF YUSSMBZX49 mL/min/1.60h5Rbpgjokkyf low>=60The [facility] CenterComment on above:Performed By: #### BNP, CMP ####[facility] Uzwfbcsyst5754[address] [place], [place] [address]Dr. Yilan ChangEGFR- NON AF HKJGPICM35 mL/min/1.23m2Jqawpjynww low>=60The [facility] CenterComment on above:Performed By: #### BNP, CMP ####[facility] Gwhbtgqrts201[address] [place], [place] [address]Dr. Yilan ChangGlobulin (S) [Mass/Vol]3.0 g/dL NormalThe [facility] CenterComment on above:Performed By: #### BNP, CMP ####[facility] Blxcutqxto6912[address] [place], [place] [address]Dr. Yilan ChangGlucose [Mass/Vol]82 mg/zKGtpirp39-655Rfe [facility] CenterComment on above:Performed By: #### BNP, CMP ####[facility] Zuqccecepf364[address] [place], [place] [address]Dr. Selenalan ChangPotassium [Moles/Vol]4.0 mmol/L Normal3.5-5.1The [facility] CenterComment on above:Performed By: #### BNP, CMP ####[facility] Yiubrswbut50[address] [place] [address]Dr. Yilan ChangProtein [Mass/Vol]5.8 g/dLCritically low6.4-8.2The [facility] Comment on above:Performed By: #### BNP, CMP ####[facility] Sljkubvldt[address] [place], [place] [address]Dr. Yilan ChangSodium [Moles/Vol]130 mmol/LCritically ksw517-596Fcn [facility] CenterComment on above: Performed By: #### BNP, CMP ####[facility] Qxcknhkpdq3713[address] [place], [place] [address]Dr. Selenalan ChangUrea nitrogen [Mass/Vol]19.0 mg/dL Critically high7.0-18.0The [facility] CenterComment on above:Performed By: #### BNP, CMP ####[facility] Faznsfuzmi7896[address] [place], [place] [address]Dr. Yilan ChangUrea nitrogen/Creatinine [Mass ratio]14.5 mg/mgNormalThe [facility] CenterComment on above:Performed By: #### BNP, CMP ####[facility] Umnzfwsxku538[address] [place], [place] [address]Dr. Airam TripathiBNPon 33-48-2217Rqfhfotzziw peptide B (Bld) [Mass/Vol]2510.0 pg/mLCritically high <=900.0The [facility] CenterComment on above:Performed By: #### BNP, CMP ####[facility] Wzefkfmopg5229[address] [place], [place] [address]Dr. Airam TripathiCBC AUTO DIFFon 87-96-4808GKWV #0.0 103/ulNormal0.0-0.1The [facility] CenterComment on above:Performed By: #### CBC ####[facility] Rlxxaxhoxs1745[address] [place], [place] [address]Dr.Yilan ChangBasophils/100 WBC (Bld)0.4 %Normal0.2-2.0The [facility] CenterComment on above:Performed By: #### CBC ####[facility] Vfmhpjwqmo7[address] [place] [address]Dr.Yilan ChangEO #0.0 103/ulNormal0.0-0.7The [facility] CenterComment on above:Performed By: #### CBC ####[facility] Ttpodwpjms1847[address] [place], [place] [address]Dr.Yilan ChangEosinophils/100 WBC (Bld)0.3 %Critically low0.9-7.0The [facility] CenterComment on above:Performed By: #### CBC ####[facility] Hwctjwoycy3489[address] [place], [place] [address]Dr. Yilan ChangErythrocyte distribution width (RBC) [Ratio]13.6 %Bulrra95.0-15.0The [facility] CenterComment on above:Performed By: #### CBC ####[facility] Lcjaqsjbph3244[address] [place], [place] [address]Dr.Selenalan ChangHematocrit (Bld) [Volume fraction]28.9 %Critically low36.0-48.0The [facility] CenterComment on above:Performed By: #### CBC ####[facility] Btugzgrxte39[address] [place], [place] [address]Dr.Selenalan ChangHemoglobin (Bld) [Mass/Vol]8.9 g/dL Critically low12.0-16.0The [facility] CenterComment on above:Performed By: #### CBC ####[facility] Omfpxxaxel9169[address] [place], [place] [address]Dr. Yilan ChangIG #0.10 10e3/ulCritically high0.00-0.03The [facility] CenterComment on above:Performed By: #### CBC ####[facility] Vaazogajgm3936[address] [place], [place] [address]Dr.Yilan ChangIG %1.3 %Critically high0.0-0.5The [facility] CenterComment on above:Performed By: #### CBC ####[facility] Tuzzlvuqfe6[address] [place] [id number].Airam TripathiLYMPH #0.7 103/ulCritically low1.2-3.8The [facility] CenterComment on above:Performed By: #### CBC ####[facility] Edfufscddu8[address] [place] [address]Dr.Airam TripathiLymphocytes/100 WBC (Bld)8.1 %Critically low20.5-60.0The [facility] CenterComment on above:Performed By: #### CBC ####[facility] D[address]uvzjtf27[address] [place] [address]Dr.Airam TripathiMANUAL DIFF REQ NONormalThe [facility] CenterComment on above:Performed By: #### CBC ####[facility] Dbflmgcfed32[address] [place] [address]Dr. Airam TripathiMCH (RBC) [Entitic mass]29.4 tpHldwrj74.7-34.0The [facility] Comment on above:Performed By: #### CBC ####[facility] Kttbhpgtyf4[address] [place], [place] [address]Dr.Airam TripathiMCHC (RBC) [Mass/Vol]30.8 g/dL Wjruoc62.9-35.2The [facility] CenterComment on above:Performed By: #### CBC ####[facility] Nbhnidqeym86[address] [place] [address]Dr. Airam TripathiMCV (RBC) [Entitic vol]95.4 hTSburae14.0-99.0The [facility] Comment on above:Performed By: #### CBC ####[facility] Kyjwcjtjqp5[address] [place] [address]Dr.Airam TripathiMONO #0.3 103/ulNormal0.3-0.8 The [facility] CenterComment on above:Performed By: #### CBC ####[facility] Wlfwvrmkva[address] [place], [place] [address]Dr.Airam Tripathi Monocytes/100 WBC (Bld)3.1 %Normal1.7-12.0The [facility] CenterComment on above: Performed By: #### CBC ####[facility] [address]zclsrglb[address] [place] [address]Dr.Selenaneil DeuceNEUT #7.0 103/ulCritically high1.4-6.5 The [facility] CenterComment on above:Performed By: #### CBC ####[facility] Csmxkbyhfa6[address] [place] [address]Dr.Airam Tripathi Neutrophils/100 WBC (Bld)86.8 %Critically high43.0-75.0The [facility] Comment on above:Performed By: #### CBC ####[facility] [address]zahhfavwj7[address] [place], [place] [address]Dr.Airam TripathiPlatelet mean volume (Bld) [Entitic vol]8.3 fLCritically low9.5-13.5The [facility] CenterComment on above: Performed By: #### CBC ####[facility] Gzgrikfwqg96[address] [place], [place] [address]Dr.Airam IddexENL228 103/iuKpgwdi618-025Fgo [facility] CenterComment on above:Performed By: #### CBC ####[facility] Pjmivpxugk[address] [place], [place] [address]Dr.Airam TripathiRBC3.03 106/ul Critically low4.20-5.40The [facility] CenterComment on above:Performed By: #### CBC ####[facility] Dbixoaftqe[address] [place], [place] [address]Dr. Airam ChangWBC8.0 103/ulNormal4.0-11.0The Acushnet HospitalComment on above: Performed By: #### CBC ####[facility] Mmohmlxbvu9[address] [place], [place] [address]Dr.Airam TripathiPROF 14(COMP METB)on 91-03-4915Qmmhket [Mass/Vol]2.8 g/dLCritically low3.4-5.0The [facility] CenterComment on above: Performed By: #### BNP, CMP ####[facility] Lshpurdcsi3[address] [place], [place] [address]Dr. Airam TripathiAlbumin/Globulin [Mass ratio]0.9 {ratio}NormalThe [facility] CenterComment on above:Performed By: #### BNP, CMP ####[facility] Otjyuwasko7[address] [place], [place] [address]Dr. Yilan ChangALP [Catalytic activity/Vol]136 U/LCritically znrb75-210Lwn [facility] CenterComment on above:Performed By: #### BNP, CMP ####[facility] Qitujduxzk8613[address] [place], [place] [address]Dr. Yilan ChangALT [Catalytic activity/Vol]17 U/PXcefce11-44Vck [facility] CenterComment on above:Performed By: #### BNP, CMP ####[facility] Aewrfxojdy66[address] [place], [place] [address]Dr. Yilan ChangAnion gap [Moles/Vol]12.9 mmol/LNormalThe [facility] CenterComment on above:Performed By: #### BNP, CMP ####[facility] Ivtsywgooo59[address] [place], [place] [address]Dr. Yilan ChangAST [Catalytic activity/Vol]24 U/QNxonsu95-37Eex [facility] CenterComment on above:Performed By: #### BNP, CMP ####[facility] Puntccpiwm[address] [place], [place] [address]Dr. Yilan ChangBilirubin [Mass/Vol]0.2 mg/dLNormal0.2-1.0The [facility] CenterComment on above:Performed By: #### BNP, CMP ####[facility] Hpcimgidgv000[address] [place], [place] [address]Dr. Yilan ChangCalcium [Mass/Vol]8.7 mg/dLNormal8.5-10.1The [facility] CenterComment on above:Performed By: #### BNP, CMP ####[facility] Xhjonkhvbj7186[address] [place], [place] [address]Dr. Yilan ChangChloride [Moles/Vol]102 mmol/LNormal 98-107The [facility] CenterComment on above:Performed By: #### BNP, CMP ####[facility] Ghelemjxlw5587[address] [place], [place] [address]Dr. Yilan ChangCO2 [Moles/Vol]23.8 mmol/FKkabnz85.0-32.0The [facility] CenterComment on above:Performed By: #### BNP, CMP ####[facility] Lbjyiisklo7699[address] [place], [place] [address]Dr. Yilan ChangCreatinine [Mass/Vol]1.08 mg/dL Critically high0.55-1.02The [facility] CenterComment on above:Performed By: #### BNP, CMP ####[facility] Bqcunxdnvt9146[address] [place], [place] [address]Dr. Yilan ChangEGFR-AF YEMENI>60Normal>=60The [facility] CenterComment on above:Performed By: #### BNP, CMP ####[facility] Wnacmcwfsr1939[address] [place], [place] [address]Dr. Yilan ChangEGFR-NON AF FUYXFHDJ18 mL/min/1.18q8Julbfmmwzb low>=60The [facility] CenterComtr[facility] on above:Performed By: #### BNP, CMP ####[facility] Nlvbhjymmw3307[address] [place], [place] [address]Dr. Yilan ChangGlobulin (S) [Mass/Vol]3.2 g/dLNormalThe [facility] CenterComtr[facility] on above:Performed By: #### BNP, CMP ####[facility] Eaabtygvgt360[address] [place], [place] [address]Dr. Yilan ChangGlucose [Mass/Vol]99 mg/oWViejzt20-611Xmt [facility] CenterComment on above:Performed By: #### BNP, CMP ####[facility] Fqtrbmufpt956[address] [place], [place] [address]Dr. Yilan ChangPotassium [Moles/Vol]4.7 mmol/LNormal3.5-5.1The [facility] CenterComtr[facility] on above:Performed By: #### BNP, CMP ####[facility] Jauhoflgxk7699[address] [place], [place] [address]Dr. Selenalan Tripathi Protein [Mass/Vol]6.0 g/dLCritically low6.4-8.2The [facility] CenterComment on above:Performed By: #### BNP, CMP ####[facility] [address] [place] [address]Dr. Yilan ChangSodium [Moles/Vol]134 mmol/LCritically vyg549-918Qci [facility] on above:Performed By: #### BNP, CMP ####[facility] Sxywbksctb34[address] [place] [address]Dr. Yilan ChangUrea nitrogen [Mass/Vol]19.0 mg/dLCritically high7.0-18.0The [facility] CenterComment on above:Performed By: #### BNP, CMP ####[facility] Xrbmuvfofw822[address] [place], [place] [address]Dr. Yilan ChangUrea nitrogen/Creatinine [Mass ratio]17.6 mg/mgNoGlenbeigh HospitalComment on above:Performed By: #### BNP, CMP ####[facility] Mnwfnyvrge3169[address] [place], [place] [address]Dr. Yilan ChangPROTIMEon 19-19-7150ETW Coag (PPP) [Relative time]1.00 {INR}NormalChillicothe VA Medical Center on above:Performed By: #### PT ####[facility] Hgeydyfpmo6490[address] [place], [place] [address]Dr. Yilan ChangINR GUIDELINESSEE BELOWFirelands Regional Medical CenterComment on above:Result Comment: DESIRED INR: 2.0 - 3.0 CONDITIONS NOT LISTED BELOW 2.5 - 3.5 FOR PROSTHETIC HEART VALVE REPLACEMENT 2.5 - 3.5 RECURRENT THROMBOSIS Performed By: #### PT ####[facility] Hsufbrbenh7540[address] [place], [place] [address]Dr. Yilan ChangPT Coag (PPP) [Time]10.8 sNormal 9.0-11.6The [facility] CenterComment on above:Performed By: #### PT ####[facility] Jwdpvimpsw067[address] [place], [place] [address]Dr. Yilan ChangPTT on 04-20-8130eIUE Coag (Bld) [Time]27.2 lUzrwqe04.3-36.2The [facility] Comment on above:Performed By: #### PTT ####[facility] Itcpsihrop[address] [place] [address]Dr.Airam ChangBNPon 31-32-4668Bymtdqorygb peptide B (Bld) [Mass/Vol]2293.0 pg/mLCritically high<=900.0The [facility] CenterComment on above:Performed By: #### CMP, BNP ####[facility] Gfnwubygeu1750[address] [place], [place] [address]Dr. Airam ChangCBC AUTO DIFF on 43-62-9474OUPP #0.0 103/ulNormal0.0-0.1The [facility] CenterComment on above: Performed By: #### CBC ####[facility] Uthrpiqzqe217[address] [place], [place] [address]Dr.Airam ChangBasophils/100 WBC (Bld)0.4 %Normal 0.2-2.0The [facility] CenterComment on above:Performed By: #### CBC ####[facility] Rhpicdaaxw1100[address] [place], [place] [address]Dr.Selenalan ChangEO # 0.2 103/ulNormal0.0-0.7The [facility] CenterComment on above:Performed By: #### CBC ####[facility] Urbyeimzfn794[address] [place], [place] [address]Dr. Airam ChangEosinophils/100 WBC (Bld)3.0 %Normal0.9-7.0The [facility] Comment on above:Performed By: #### CBC ####[facility] Vdrhtezazq573[address] [place], [place] [address]Dr.Airam ChangErythrocyte distribution width (RBC) [Ratio]13.3 %Xrguwv07.0-15.0The [facility] CenterComment on above: Performed By: #### CBC ####[facility] Jdublrlbwt984[address] [place], [place] [address]Dr.Airam ChangHematocrit (Bld) [Volume fraction]26.2 % Critically low36.0-48.0The [facility] CenterComment on above:Performed By: #### CBC ####[facility] [address]oxrzqtok[address] [place] [address]Dr. Airam TripathiHemoglobin (Bld) [Mass/Vol]8.3 g/dLCritically low12.0-16.0The [facility] CenterComment on above:Performed By: #### CBC ####[facility] Aftksrnhth3496[address] [place], [place] [address]Dr.Selenalan ChangIG #0.08 10e3/ulCritically high0.00-0.03The [facility]ushnet HospitalComment on above:Performed By: #### CBC ####[facility] Xdcnewtjxj7968[address] [place], [place] [address]Dr.Airam ChangIG %1.1 %Critically high0.0-0.5The [facility] CenterComment on above:Performed By: #### CBC ####[facility] Kjkdstaulk9388[address] [place], [place] [address]Dr.Airam ChangLYMPH #1.2 103/ulNormal1.2-3.8The [facility] CenterComment on above:Performed By: #### CBC ####[facility] Nypofcvlww[address] [place], [place] [address]Dr.Airam TripathiLymphocytes/100 WBC (Bld)17.3 %Critically low20.5-60.0The [facility] CenterComment on above: Performed By: #### CBC ####[facility] Olaaipcxvp5305[address] [place], [place] [address]Dr.Airam TripathiMANUAL DIFF REQNONormalThe [facility] CenterComment on above:Performed By: #### CBC ####[facility] Jdqnpncqvn[address] [place], [place] [address]Dr.Airam TripathiMCH (RBC) [Entitic mass]30.3 wvWlhlka00.7-34.0The [facility] CenterComment on above: Performed By: #### CBC ####[facility] Gxiiuaobbg4746[address] [place], [place] [address]Dr.Airam TripathiMCHC (RBC) [Mass/Vol]31.7 g/dLNormal 29.9-35.2The [facility] HospitalComment on above:Performed By: #### CBC ####[facility] Ze[address]psccd[address] [place] [address]Dr. Airam TripathiMCV (RBC) [Entitic vol]95.6 lFHnshvp16.0-99.0The [facility] Comment on above:Performed By: #### CBC ####[facility] Vtjihefmap6330[address] [place], [place] [address]Dr.Airam TripathiMONO #0.5 103/ulNormal0.3-0.8 The [facility] CenterComment on above:Performed By: #### CBC ####[facility] Mdeiofkidt379[address] [place], [place] [address]Dr.Airam Tripathi Monocytes/100 WBC (Bld)7.1 %Normal1.7-12.0The [facility] CenterComment on above: Performed By: #### CBC ####[facility] Egtktivybh364[address] [place], [place] [address]Dr.Airam TripathiNEUT #5.0 103/ulNormal1.4-6.5The [facility] CenterComment on above:Performed By: #### CBC ####[facility] Fuckubjzfu1950[address] [place], [place] [address]Dr.Airam TripathiNeutrophils/100 WBC (Bld)71.1 %Gcuwdu54.0-75.0The [facility] CenterComment on above:Performed By: #### CBC ####[facility] Xjpbhcpffl974[address] [place], [place] [address]Dr.Airam TripathiPlatelet mean volume (Bld) [Entitic vol]8.2 fLCritically low 9.5-13.5The [facility] CenterComment on above:Performed By: #### CBC ####[facility] Vuajfixblo3801[address] [place], [place] [address]Dr. Selenalan OdztjVSP612 103/vzBhlbto412-453Ccc [facility] CenterComment on above: Performed By: #### CBC ####[facility] Rsimqnluod9704[address] [place], [place] [address]Dr.Selenaneil TripathiRBC2.74 106/ulCritically low4.20-5.40The [facility] CenterComment on above:Performed By: #### CBC ####[facility] [address]xtmopm[address] [place] [address]Dr.Yilan ChangWBC7.1 103/ul Normal4.0-11.0The [facility] CenterComment on above:Performed By: #### CBC ####[facility] Wxhnlartit[address] [place] [address]Dr. Selenalan ChangCTA CHEST WO W CONon 64-28-6290KRE CHEST WO W CONNormalThe [facility] CenterPROF 14(COMP METB)on 08-12-6593Uuvkwnf [Mass/Vol]2.6 g/dLCritically low 3.4-5.0The [facility] CenterComment on above:Performed By: #### CMP, BNP ####[facility] Rsncinzqjq6045[address] [place], [place] [address]Dr. Airam ChangAlbumin/Globulin [Mass ratio]0.8 {ratio}NormalThe [facility] Comment on above:Performed By: #### CMP, BNP ####[facility] Gqnvltswum2525[address] [place], [place] [address]Dr. Selenalan ChangALP [Catalytic activity/Vol]130 U/LCritically fzss78-368Grq [facility] CenterComment on above: Performed By: #### CMP, BNP ####[facility] Sgpfedklnf2110[address] [place], [place] [address]Dr. Airam ChangALT [Catalytic activity/Vol]12 U/L Critically yjh16-02Iax [facility] CenterComment on above:Performed By: #### CMP, BNP ####[facility] Fanyqmmpuj6137[address] [place], [place] [address]Dr. Airam TripathiAnion gap [Moles/Vol]11.8 mmol/LNormalThe [facility] CenterComment on above:Performed By: #### CMP, BNP ####[facility] Kvcfhdkpbe9913[address] [place], [place] [address]Dr. Yilan ChangAST [Catalytic activity/Vol]22 U/L Vedssr53-66Rqh [facility] CenterComment on above:Performed By: #### CMP, BNP ####[facility] Cklxgycfzb31[address] [place] [address]Dr. Yilan ChangBilirubin [Mass/Vol]0.2 mg/dLNormal0.2-1.0The [facility] Comment on above:Performed By: #### CMP, BNP ####[facility] Bassuhaczh7314[address] [place], [place] [address]Dr. Yilan ChangCalcium [Mass/Vol]8.0 mg/dLCritically low8.5-10.1The [facility] CenterComment on above: Performed By: #### CMP, BNP ####[facility] Puumxahqum8[address] [place], [place] [address]Dr. Yilan ChangChloride [Moles/Vol]104 mmol/LNormal 98-107The [facility] CenterComment on above:Performed By: #### CMP, BNP ####[facility] Gcxkxiicry0139[address] [place], [place] [address]Dr. Yilan ChangCO2 [Moles/Vol]22.8 mmol/KQxpwns40.0-32.0The [facility] CenterComment on above:Performed By: #### CMP, BNP ####[facility] Bexbgwyrbc6475[address] [place], [place] [address]Dr. Yilan ChangCreatinine [Mass/Vol]1.07 mg/dL Critically high0.55-1.02The [facility] CenterComment on above:Performed By: #### CMP, BNP ####[facility] Fiwfrwvakf1296[address] [place], [place] [address]Dr. Yilan ChangEGFR-AF YEMENI>60Normal>=60The [facility] CenterComment on above:Performed By: #### CMP, BNP ####[facility] Jtaznubsnz[address] [place], [place] [address]Dr. Yilan ChangEGFR-NON AF UOTAAVSE74 mL/min/1.11c2Zzeqjxtqql low>=60The [facility] CenterComtrinity health [facility] on above:Performed By: #### CMP, BNP ####[facility] Pozisddzjv33[address] [place], [place] [address]Dr. Yilan ChangGlobulin (S) [Mass/Vol]3.1 g/dLNormalThe [facility]net HospitalComment on above:Performed By: #### CMP, BNP ####[facility] Dxnbmohbji3934[address] [place], [place] [address]Dr. Yilan ChangGlucose [Mass/Vol]85 mg/oWLspnhy42-572Obi [facility] CenterComment on above:Performed By: #### CMP, BNP ####[facility] Cxhsbjoexg4105[address] [place], [place] [address]Dr. Yineil ChangPotassium [Moles/Vol]4.6 mmol/LNormal3.5-5.1The [facility] HospitalComment on above:Performed By: #### CMP, BNP ####[facility] Emneqeuqvc3394[address] [place], [place] [address]Dr. Yilan Tripathi Protein [Mass/Vol]5.7 g/dLCritically low6.4-8.2The [facility] CenterComment on above:Performed By: #### CMP, BNP ####[facility] Apllhdopcx[address] [place], [place] [address]Dr. Yilan ChangSodium [Moles/Vol]134 mmol/LCritically csb995-185Fri [facility] CenterComment on above:Performed By: #### CMP, BNP ####[facility] Vbqgadpfxq585[address] [place], [place] [address]Dr. Yilan ChangUrea nitrogen [Mass/Vol]24.0 mg/dLCritically high7.0-18.0The [facility] CenterComment on above:Performed By: #### CMP, BNP ####[facility] Ufkyzhlkeq9414[address] [place], [place] [address]Dr. Yilan ChangUrea nitrogen/Creatinine [Mass ratio]22.4 mg/mgNormalThe [facility] CenterComment on above:Performed By: #### CMP, BNP ####[facility] Htvokjcfgh9120[address] [place], [place] [address]Dr. Selenalan ChangBNPon 16-81-7719Fkosoyskvcf peptide B (Bld) [Mass/Vol]934.0 pg/mLCritically high<=900.0The [facility] CenterComment on above:Performed By: #### CMP, BNP ####[facility] Vflmuxeazf6887[address] [place], [place] [address]Dr. Airam TripathiCBC AUTO DIFFon 44-30-3763LBJM # 0.0 103/ulNormal0.0-0.1[facility] Hospitalment on above:Performed By: #### CBC ####[facility] Dtmuykfojf2105[address] [place], [place] [address]Dr. Airam ChangBasophils/100 WBC (Bld)0.2 %Normal0.2-2.0The [facility] CenterComment on above:Performed By: #### CBC ####[facility] Arpqehxyio887[address] [place], [place] [address]Dr.Selenalan ChangEO #0.1 103/ulNormal0.0-0.7The [facility] CenterComment on above:Performed By: #### CBC ####[facility] Nmvzghfzde6216[address] [place], [place] [address]Dr.Airam ChangEosinophils/100 WBC (Bld)2.1 %Normal0.9-7.0The [facility] CenterComment on above:Performed By: #### CBC ####[facility] Kdiahvjjve964[address] [place], [place] [address]Dr.Airam ChangErythrocyte distribution width (RBC) [Ratio]12.9 %Normal 11.0-15.0The [facility] on above:Performed By: #### CBC ####[facility] Vutraqftxb447[address] [place], [place] [address]Dr. Airam ChangHematocrit (Bld) [Volume fraction]24.9 %Critically low36.0-48.0The [facility] CenterComment on above:Performed By: #### CBC ####[facility] Xzebldfcxx0139[address] [place], [place] [address]Dr.Airam ChangHemoglobin (Bld) [Mass/Vol]7.9 g/dLCritically low12.0-16.0The [facility] CenterComment on above:Performed By: #### CBC ####[facility] Oxopmsmmep7717[address] [place], [place] [address]Dr.Airam ChangIG #0.05 10e3/ulCritically high0.00-0.03 The [facility] CenterComment on above:Performed By: #### CBC ####[facility] Zppupvylye527[address] [place], [place] [address]Dr.Airam DeuceIG % 0.8 %Critically high0.0-0.5The [facility] CenterComment on above:Performed By: #### CBC ####[facility] Upbowvemfj301[address] [place], [place] [address]Dr.Airam DeuceLYMPH #0.9 103/ulCritically low1.2-3.8The [facility] Comment on above:Performed By: #### CBC ####[facility] Glhspkumjf585[address] [place], [place] [address]Dr.Airam TripathiLymphocytes/100 WBC (Bld)13.7 %Critically low20.5-60.0The [facility] CenterComment on above:Performed By: #### CBC ####[facility] Hrwomhkggb9309[address] [place], [place] [address]Dr.Airam TripathiMANUAL DIFF REQNONormalThe [facility] CenterComment on above: Performed By: #### CBC ####[facility] Surmohlxzm5928[address] [place], [place] [address]Dr.Airam TripathiMEDISYS HEALTH NETWORK (RBC) [Entitic mass]30.2 pgNormal 26.7-34.0[facility] HospitalComment on above:Performed By: #### CBC ####[facility] Jmmpiyecpo3778[address] [place], [place] [address]Dr. Airam TripathiHC (RBC) [Mass/Vol]31.7 g/iLVvhhnq96.9-35.2[facility] Comment on above:Performed By: #### CBC ####[facility] Ydhovhkbqu408[address] [place], [place] [address]Dr.Airam TripathiV (RBC) [Entitic vol]95.0 fL Wohwfk79.0-99.0The [facility] CenterComment on above:Performed By: #### CBC ####[facility] Gneeuaqfvd1230[address] [place], [place] [address]Dr. Yilan ChangMONO #0.4 103/ulNormal0.3-0.8The [facility] HospitalComment on above: Performed By: #### CBC ####[facility] [address]ixlkrigx[address] [place] [address]Dr.Selenalan ChangMonocytes/100 WBC (Bld)6.7 %Normal 1.7-12.0The [facility] CenterComment on above:Performed By: #### CBC ####[facility] Ktmqmhdxft9288[address] [place], [place] [address]Dr. Selenalan ChangNEUT #5.0 103/ulNormal1.4-6.5The [facility] HospitalComment on above: Performed By: #### CBC ####[facility] Zztimdsifs485[address] [place], [place] [address]Dr.Selenalan ChangNeutrophils/100 WBC (Bld)76.5 % Critically high43.0-75.0The [facility] CenterComment on above:Performed By: #### CBC ####[facility] Owcneggrzc9695[address] [place], [place] [address]Dr. Airam ChangPlatelet mean volume (Bld) [Entitic vol]8.4 fLCritically low9.5-13.5 The [facility] CenterComment on above:Performed By: #### CBC ####[facility] Vfhypcqxdc2544[address] [place], [place] [address]Dr.Airam AowplUCJ992 103/qhPuqvwq567-286Pzs [facility] CenterComment on above:Performed By: #### CBC ####[facility] Xnthzvfzor20[address] [place], [place] [address]Dr. Airam ChangRBC2.62 106/ulCritically low4.20-5.40The [facility] CenterComment on above:Performed By: #### CBC ####[facility] Lekbvivxlz[address] [place], [place] [address]Dr.Selenalan ChangWBC6.6 103/ulNormal4.0-11.0The [facility] CenterComment on above:Performed By: #### CBC ####[facility] Drahlxnfno8832[address] [place], [place] [address]Dr.Airam TripathiOSMOLALITYon 67-45-1341Tzmldsyhtr [Osmolality]269 mosm/kgCritically spx332-854Hno [facility] CenterComment on above:Performed By: #### OSMO ####[facility] Hdyhanesfk[address] [place] [address]Dr. Airam DeucePROF 14(COMP METB)on 38-76-9279Bncfekq [Mass/Vol]2.5 g/dLCritically low3.4-5.0The [facility] HospitalComment on above:Performed By: #### CMP, BNP ####[facility] Lrulgsogpf44[address] [place] [address]Dr. Airam Tripathi Albumin/Globulin [Mass ratio]0.9 {ratio}NormalThe [facility] CenterComment on above:Performed By: #### CMP, BNP ####[facility] Wmxcpgpetz064[address] [place], [place] [address]Dr. Airam TripathiALP [Catalytic activity/Vol]128 U/L Critically xgfg03-098Djv [facility] CenterComment on above:Performed By: #### CMP, BNP ####[facility] Mmcpyccpeu006[address] [place], [place] [address]Dr. Airam TripathiALT [Catalytic activity/Vol]14 U/FSbocil19-68Wzs [facility] CenterComment on above:Performed By: #### CMP, BNP ####[facility] Wztrphjdtt665[address] [place], [place] [address]Dr. Airam TripathiAnion gap [Moles/Vol]10.4 mmol/LNormalThe [facility] HospitalComment on above:Performed By: #### CMP, BNP ####[facility] Hnmcjrnkyz8[address] [place], [place] [address]Dr. Airam ChangAST [Catalytic activity/Vol]23 U/YQvjzbw27-30Cvb [facility] CenterComment on above:Performed By: #### CMP, BNP ####[facility] Kqdkblccvj07[address] [place], [place] [address]Dr. Airam Tripathi Bilirubin [Mass/Vol]0.2 mg/dLNormal0.2-1.0The [facility] CenterComment on above: Performed By: #### CMP, BNP ####[facility] Sjbobhppsr[address] [place], [place] [address]Dr. Yilan ChangCalcium [Mass/Vol]7.4 mg/dLCritically low8.5-10.1The [facility] CenterComment on above:Performed By: #### CMP, BNP ####[facility] Chskdiaqhm[address] [place], [place] [address]Dr. Yilan ChangChloride [Moles/Vol]99 mmol/DEnayuw57-405Ovz [facility] CenterComment on above:Performed By: #### CMP, BNP ####[facility] Fwkggigqha[address] [place], [place] [address]Dr. Yilan ChangCO2 [Moles/Vol]24.1 mmol/LNormal 21.0-32.0The [facility] HospitalComment on above:Performed By: #### CMP, BNP ####[facility] Kptkrhucnp29[address] [place], [place] [address]Dr. Yilan ChangCreatinine [Mass/Vol]1.45 mg/dLCritically high0.55-1.02The [facility] CenterComment on above:Performed By: #### CMP, BNP ####[facility] Mnuficawuh25[address] [place], [place] [address]Dr. Yilan ChangEGFR-AF EKAFRTFI10 mL/min/1.46p3Hlzsxescya low>=60The [facility] CenterComment on above: Performed By: #### CMP, BNP ####[facility] Yiqacmeflb34[address] [place], [place] [address]Dr. Yilan ChangEGFR-NON AF QWZXWGQZ33 mL/min/1.73m2 Critically low>=60The [facility] CenterComment on above:Performed By: #### CMP, BNP ####[facility] Kzrlsqbpmr6[address] [place], [place] [address]Dr. Yilan ChangGlobulin (S) [Mass/Vol]2.8 g/dLNormalThe [facility] CenterComment on above:Performed By: #### CMP, BNP ####[facility] Mnkawrpyal33[address] [place], [place] [address]Dr. Yilan ChangGlucose [Mass/Vol]82 mg/dLNormal 74-106The [facility] CenterComment on above:Performed By: #### CMP, BNP ####[facility] [address]vwuzqkkzz[address] [place] [address]Dr. Yilan ChangPotassium [Moles/Vol]4.5 mmol/LNormal3.5-5.1The [facility] Comment on above:Performed By: #### CMP, BNP ####[facility] Center [address] [place], [place] [address]Dr. Yilan ChangProtein [Mass/Vol]5.3 g/dLCritically low6.4-8.2The [facility] CenterComment on above: Performed By: #### CMP, BNP ####[facility] Deamiaxmmt[address] [place], [place] [address]Dr. Yilan ChangSodium [Moles/Vol]129 mmol/LCritically ioy309-461Nyf [facility] CenterComment on above:Performed By: #### CMP, BNP ####[facility] Sgghzovjss[address] [place], [place] [address]Dr. Yilan ChangUrea nitrogen [Mass/Vol]35.0 mg/dLCritically high7.0-18.0The [facility] CenterComment on above:Performed By: #### CMP, BNP ####[facility] Runwjqcrqg0010[address] [place], [place] [address]Dr. Yilan ChangUrea nitrogen/Creatinine [Mass ratio]24.1 mg/mgNormalThe [facility] CenterComment on above:Performed By: #### CMP, BNP ####[facility] Plbbwvlkws9737[address] [place], [place] [address]Dr. Yilan ChangT3, TOTAL (TRIIODOTHYRONINE)on 91-85-9929E4, COAQF820 ng/hBUyrydr67-458Qfj [facility] CenterComment on above: Performed By: #### P7TPQNC ####[facility] Ozkhxxusey[address] [place], [place] [address]Dr. Yilan ChangBNPon 93-10-7758Yubjpeerugc peptide B (Bld) [Mass/Vol]1024.0 pg/mLCritically high<=900.0The [facility] CenterComment on above:Performed By: #### BNP, CMP ####[facility] Tqpdmviyoi70[address] [place], [place] [address]Dr. Selenaneil DeuceCARDIAC CONSUELO 3-6on 35-70-6609PO [Catalytic activity/Vol]116 U/APteysa65-167Mmg [facility] CenterComment on above:Performed By: #### CMREP ####[facility] Mgwqoovgit45[address] [place], [place] [address]Dr. Airam TripathiCK.MB [Mass/Vol]ng/mLNormal<=3.60The [facility] Hospitalment on above:Performed By: #### CMREP ####[facility] Fomkquxwlf[address] [place], [place] [address]Dr. Selenaneil TripathiHSTROP6.0 pg/mLNormal4.0-51.3The [facility] CenterComment on above:Result Comment: CUT-OFF POINTS HAVE BEEN ESTABLISHED BASED ON THE FOURTH UNIVERSAL DEFINITIONS OF MY OCARDIALINFARCTION. THE UPPER REFERENCE LIMIT (URL) OF TROPONIN, DEFINED THE 99TH PERCENTILE OFcTnI DISTRIBUTION IN A REFERENCE POPULATION, HAS BEEN CONFIRMED THE DECISION THRESHOLDFOR UT DIAGNOSIS.Performed By: #### CMREP ####[facility] Bfgznywmts[address] [place], [place] [address]Dr. Airam TripathiCBC AUTO DIFFon 14-63-4552EWFP #0.0 103/ulNormal0.0-0.1The [facility] CenterComment on above:Performed By: #### CBC ####[facility] Yejxjdurpc0[address] [place], [place] [address]Dr.Airam DeuceBasophils/100 WBC (Bld)0.3 %Normal0.2-2.0The [facility] CenterComtr[facility] on above:Performed By: #### CBC ####[facility] Wzrzqogcza33[address] [place], [place] [address]Dr.Airam ChangEO #0.2 103/ulNormal0.0-0.7The [facility] CenterComtrinity [facility] on above:Performed By: #### CBC ####[facility] [address] [place] [address]Dr.Airam ChangEosinophils/100 WBC (Bld)2.0 %Normal 0.9-7.0The [facility] CenterComment on above:Performed By: #### CBC ####[facility] Ubuwghhsok[address] [place], [place] [address]Dr.Airam Tripathi Erythrocyte distribution width (RBC) [Ratio]12.8 %Pchkra70.0-15.0The [facility] CenterComment on above:Performed By: #### CBC ####[facility] Yhsnfzkauq7914[address] [place], [place] [address]Dr.Airam ChangHematocrit (Bld) [Volume fraction]27.4 %Critically low36.0-48.0The [facility] CenterComment on above:Performed By: #### CBC ####[facility] Ybhjsgqpio4825[address] [place], [place] [address]Dr.Airam ChangHemoglobin (Bld) [Mass/Vol]8.7 g/dL Critically low12.0-16.0The [facility] CenterComment on above:Performed By: #### CBC ####[facility] Cwmkkemtbt0[address] [place], [place] [address]Dr. Airam ChangIG #0.11 10e3/ulCritically high0.00-0.03The [facility] CenterComment on above:Performed By: #### CBC ####[facility] Nshbisyzcf[address] [place], [place] [address]Dr.Airam ChangIG %1.1 %Critically high0.0-0.5The [facility] CenterComment on above:Performed By: #### CBC ####[facility] Gobughmpha3904[address] [place], [place] [address]Dr.Airam ChangLYMPH #0.9 103/ulCritically low1.2-3.8The [facility] CenterComment on above:Performed By: #### CBC ####[facility] Yhktcxnvix0694[address] [place], [place] [address]Dr.Airam ChangLymphocytes/100 WBC (Bld)9.7 %Critically low20.5-60.0The [facility] CenterComment on above:Performed By: #### CBC ####[facility] [address]neeb[address] [place] [address]Dr.Airam TripathiMANUAL DIFF REQ NONormalThe [facility] CenterComment on above:Performed By: #### CBC ####[facility] Joyysouogk[address] [place] [address]Dr. Airam TripathiH (RBC) [Entitic mass]30.0 iyXxqsiw85.7-34.0The [facility] Comment on above:Performed By: #### CBC ####[facility] Asdygbsedd200[address] [place], [place] [address]Dr.Selenaneil TripathiHC (RBC) [Mass/Vol]31.8 g/dL Aaibzb69.9-35.2The [facility] CenterComment on above:Performed By: #### CBC ####[facility] Knsndiraca4437[address] [place], [place] [address]Dr. Airam TripathiV (RBC) [Entitic vol]94.5 nVWmbddz82.0-99.0The [facility] Comment on above:Performed By: #### CBC ####[facility] Rolllwdres3134[address] [place], [place] [address]Dr.Seleanneil TripathiMONO #0.6 103/ulNormal0.3-0.8 [facility] HospitalComment on above:Performed By: #### CBC ####[facility] Akgunwbvsg6804[address] [place], [place] [address]Dr.Airam Tripathi Monocytes/100 WBC (Bld)5.7 %Normal1.7-12.0The [facility] CenterComment on above: Performed By: #### CBC ####[facility] Mptwkqwrrp2750[address] [place], [place] [address]DrBroderick TripathiNEUT #7.8 103/ulCritically high1.4-6.5 [facility] HospitalComment on above:Performed By: #### CBC ####[facility] Zynsksuolw938[address] [place], [place] [address]Dr.Airam Tripathi Neutrophils/100 WBC (Bld)81.2 %Critically high43.0-75.0The [facility] Comment on above:Performed By: #### CBC ####[facility] Fseoroagax7511[address] [place], [place] [address]Dr.Airam TripathiPlatelet mean volume (Bld) [Entitic vol]8.6 fLCritically low9.5-13.5The [facility] CenterComment on above: Performed By: #### CBC ####[facility] Dncmjhfmnc77[address] [place], [place] [address]Dr.Airam FjjxxNRH885 103/znYftsfl397-635Xrm [facility] CenterComment on above:Performed By: #### CBC ####[facility] Qdldxqmzib653[address] [place], [place] [address]Dr.Selenaneil ChangRBC2.90 106/ul Critically low4.20-5.40The [facility] CenterComment on above:Performed By: #### CBC ####[facility] Sylemhdrjl4138[address] [place], [place] [address]Dr. Selenaneil ChangWBC9.6 103/ulNormal4.0-11.0The [facility] CenterComment on above: Performed By: #### CBC ####[facility] Gtbzculgqn105[address] [place], [place] [address]Dr.Selenaneil DeuceOSMOLALITYon 75-71-0139Kvxnrkxbra [Osmolality]273 mosm/kgCritically xij839-571Mbg [facility] CenterComment on above:Performed By: #### OSMO ####[facility] Zaeofoddmb0260[address] [place], [place] [address]Dr. Selenaneil ChangPROF 14(COMP METB)on 75-51-2659Hcfurhs [Mass/Vol]3.2 g/dLCritically low3.4-5.0The [facility] CenterComment on above: Performed By: #### BNP, CMP ####[facility] Ggdefelrwy4320[address] [place], [place] [address]Dr. Airam TripathiAlbumin/Globulin [Mass ratio]1.0 {ratio}NormalThe [facility] CenterComment on above:Performed By: #### BNP, CMP ####[facility] [address] [place] [id number]. Yilan ChangALP [Catalytic activity/Vol]154 U/LCritically locu60-468Mkc [facility] CenterComment on above:Performed By: #### BNP, CMP ####[facility] Xqzztgvwjv6[address] [place] [address]Dr. Yilan ChangALT [Catalytic activity/Vol]17 U/TSopxlz32-59Efm [facility] CenterComment on above:Performed By: #### BNP, CMP ####[facility] Lmfayiabah[address] [place], [place] [address]Dr. Yilan ChangAnion gap [Moles/Vol]12.0 mmol/LNormalThe [facility] CenterComment on above:Performed By: #### BNP, CMP ####[facility] Kdqnbahpkc[address] [place], [place] [address]Dr. Yilan ChangAST [Catalytic activity/Vol]25 U/TVrtrvs47-14Rqo [facility] CenterComment on above:Performed By: #### BNP, CMP ####[facility] Hgmkwqkcxa305[address] [place], [place] [address]Dr. Yilan ChangBilirubin [Mass/Vol]0.3 mg/dLNormal0.2-1.0The [facility] CenterComtrinity [facility] on above:Performed By: #### BNP, CMP ####[facility] Jmcrtwlcak[address] [place], [place] [address]Dr. Yilan ChangCalcium [Mass/Vol]7.6 mg/dLCritically low8.5-10.1The [facility] CenterComment on above: Performed By: #### BNP, CMP ####[facility] Bgkefzdxlc[address] [place] [address]Dr. Yilan ChangChloride [Moles/Vol]92 mmol/LCritically asi13-389Sax [facility] CenterComment on above:Performed By: #### BNP, CMP ####[facility] Eyyoslbwsv2425[address] [place], [place] [address]Dr. Yilan ChangCO2 [Moles/Vol]25.2 mmol/EBqflcp54.0-32.0The [facility] CenterComment on above:Performed By: #### BNP, CMP ####[facility] Ydnzunbkgt8497[address] [place], [place] [address]Dr. Yilan ChangCreatinine [Mass/Vol]1.83 mg/dL Critically high0.55-1.02The [facility] CenterComment on above:Performed By: #### BNP, CMP ####[facility] Iygcdywahz4848[address] [place], [place] [address]Dr. Yilan ChangEGFR-AF ZOYDZPTI17 mL/min/1.17g3Vqaoewvbcr low>=60The [facility] CenterComment on above:Performed By: #### BNP, CMP ####[facility] Uewezgbsnr8705[address] [place], [place] [address]Dr. Yilan ChangEGFR- NON AF OKQEKLEB21 mL/min/1.03a5Kwvqlnbktg low>=60The [facility] CenterComment on above:Performed By: #### BNP, CMP ####[facility] Lcruurjehn932[address] [place], [place] [address]Dr. Yilan ChangGlobulin (S) [Mass/Vol]3.1 g/dL NormalThe [facility] CenterComment on above:Performed By: #### BNP, CMP ####[facility] Pwhyvlyfmx274[address] [place], [place] [address]Dr. Yilan ChangGlucose [Mass/Vol]77 mg/bDMvzylm58-900Gio [facility] CenterComment on above:Performed By: #### BNP, CMP ####[facility] Dtchezfhzn2470[address] [place], [place] [address]Dr. Yilan ChangPotassium [Moles/Vol]4.2 mmol/L Normal3.5-5.1The [facility] CenterComment on above:Performed By: #### BNP, CMP ####[facility] Bbvggbqfvi0574[address] [place], [place] [address]Dr. Yilan ChangProtein [Mass/Vol]6.3 g/dLCritically low6.4-8.2The [facility] Comment on above:Performed By: #### BNP, CMP ####[facility] Pupqagniuy5246[address] [place], [place] [address]Dr. Yilan ChangSodium [Moles/Vol]125 mmol/LCritically hqw930-558Qlw [facility] HospitalComment on above: Performed By: #### BNP, CMP ####[facility] Pgihfxyrhb6838[address] [place], [place] [address]Dr. Selenalan ChangUrea nitrogen [Mass/Vol]35.0 mg/dL Critically high7.0-18.0The [facility] CenterComment on above:Performed By: #### BNP, CMP ####[facility] Jehnuvqmmq1220[address] [place], [place] [address]Dr. Selenalan ChangUrea nitrogen/Creatinine [Mass ratio]19.1 mg/mgNormalThe [facility] CenterComment on above:Performed By: #### BNP, CMP ####[facility] Lbfosoognk8312[address] [place], [place] [address]Dr. Selenalan ChangUA RANDOM W/MICROSCOPICon 05-34-7726XECIEREGAUDNPYwqxfabsCJEK SEENHocking Valley Community HospitalComment on above:Performed By: #### UAMIC ####[facility] Uinqnrjmrf9374[address] [place], [place] [address]Dr. Airam ChangBilirubin Ql (U)NegativeNormalNEGATIVEThe [facility] CenterComment on above:Performed By: #### UAMIC ####[facility] Kearmeyfiy7668[address] [place], [place] [address]Dr. Selenalan ChangCASTNONE SEENNormalNONE SEENHocking Valley Community HospitalComment on above:Performed By: #### UAMIC ####[facility] Vdptjhvumc4526[address] [place], [place] [address]Dr. Airam ChangClarity (U)CLEARNormalCLEARThe [facility] CenterComment on above:Performed By: #### UAMIC ####[facility] Phjswmfpjv4554[address] [place], [place] [address]Dr. Airam ChangColor (U)LT. YELLOWNormalYELLOWHocking Valley Community HospitalComment on above:Performed By: #### UAMIC ####[facility] Tiocqwlswd6459[address] [place], [place] [address]Dr. Airam ChangCrystals LM Nom (Urine sed)NONE SEENNormalNONE SEENThe [facility] HospitalComment on above:Performed By: #### UAMIC ####[facility] Eoiziakdkr[address] [place] [address]Dr. Yilan ChangEpithelial cells LM Ql (Urine sed)FEWAbnormalNONE SEEN /RAREThe [facility] CenterComment on above:Performed By: #### UAMIC ####[facility] Qwsuizvzux0[address] [place] [address]Dr. Yilan ChangGlucose Ql (U)NegativeNormalNEGATIVEAcmc Healthcare System Glenbeigh HospitalComment on above:Performed By: #### UAMIC ####[facility] Qfpvbtoeeq3985[address] [place], [place] [address]Dr. Yilan ChangHemoglobin Ql (U)NegativeNormalNEGATIVEHocking Valley Community HospitalComment on above:Performed By: #### UAMIC ####[facility] Yqnqjohwnp2407[address] [place], [place] [address]Dr. Yilan ChangKetones Ql (U)NegativeNormalNEGATIVEThe [facility] Comment on above:Performed By: #### UAMIC ####[facility] Tbwvhkslkm8329[address] [place], [place] [address]Dr. Yilan ChangLEUKOCYTESMODERATEAbnormal NEGATIVEHocking Valley Community HospitalComment on above:Performed By: #### UAMIC ####[facility] Nifosaonen7[address] [place], [place] [address]Dr. Yilan ChangMUCOUSNONE SEENNormalNONE SEENThe [facility] CenterComment on above: Performed By: #### UAMIC ####[facility] Ofdpdhzgez8024[address] [place], [place] [address]Dr. Yilan ChangNitrite Ql (U)NegativeNormalNEGATIVEHocking Valley Community HospitalComment on above:Performed By: #### UAMIC ####[facility] Xapxdoekbe3670[address] [place], [place] [address]Dr. Yilan ChangpH (U)5.5 [pH] Normal5-9H[facility] HospitalComment on above:Performed By: #### UAMIC ####[facility] Xggtynrdrh06[address] [place], [place] [address]Dr. Yilan NglwuYFO6-8Qxgyva8-3Ows [facility] CenterComment on above:Performed By: #### UAMIC ####[facility] Qckigmhczw4107[address] [place], [place] [address]Dr. Selenaneil DeuceSPEC GRAVITY1.876Lrnxur3.005-<=1.025The [facility] Comment on above:Performed By: #### UAMIC ####[facility] Cxzrsyibdq9504[address] [place], [place] [address]Dr. Airam TripathiUA PROTEINNegativeNormal NEGATIVE/ TRACEThe [facility] CenterComment on above:Performed By: #### UAMIC ####[facility] Ijwbvqkrak0974[address] [place], [place] [address]Dr. Airam TripathiUrobilinogen Qn (U)0.2 {Ligia'U}/dLNormal0.2 - 1.0The [facility] CenterComment on above:Performed By: #### UAMIC ####[facility] Sgadegtmcx9[address] [place], [place] [address]Dr. Airam TripathiWBC5-10 AbnormalNONE SEENThe [facility] CenterComment on above:Performed By: #### UAMIC ####[facility] Xyndpyquwf4912[address] [place], [place] [address]Dr. Airam FerrerPon 90-20-2130Izvxwkhazww peptide B (Bld) [Mass/Vol]1496.0 pg/mL Critically high<=900.0The [facility] CenterComment on above:Performed By: #### T4, BNP, MG, TSH, CMADM, CRP, CMP ####[facility] Mhcrernvfx[address] [place], [place] [address]Dr. Airam TripathiCARDIAC CONSEULO 3-6on 43-13-8834HW [Catalytic activity/Vol]125 U/PJceonr72-016Fxh [facility] CenterComment on above:Performed By: #### CMREP ####[facility] Fjolkjdhlh658[address] [place], [place] [address]Dr. Airam Phillips.MB [Mass/Vol]ng/mLNormal<=3.60The [facility] CenterComment on above:Performed By: #### CMREP ####[facility] Ybw[address]wcyzv[address] [place] [address]Dr. Airam TripathiHSTROP5.8 pg/mLNormal4.0-51.3The [facility] CenterComment on above:Result Comment: CUT-OFF POINTS HAVE BEEN ESTABLISHED BASED ON THE FOURTH UNIVERSAL DEFINITIONS OF MY OCARDIALINFARCTION. THE UPPER REFERENCE LIMIT (URL) OF TROPONIN, DEFINED THE 99TH PERCENTILE OFcTnI DISTRIBUTION IN A REFERENCE POPULATION, HAS BEEN CONFIRMED THE DECISION THRESHOLDFOR UT DIAGNOSIS.Performed By: #### CMREP ####[facility] [address]amazs[address] [place] [address]Dr. Airam TripathiCARDIAC CONSUELO ADMITon 42-82-7059YS [Catalytic activity/Vol]121 U/L Lunptw16-007Xuo [facility] CenterComment on above:Performed By: #### T4, BNP, MG, TSH, CMADM, CRP, CMP ####[facility] Lpnbmvookq[address] [place] [address]Dr. Airam TripathiCK.MB [Mass/Vol]3.06 ng/mLNormal<=3.60 The [facility] CenterComment on above:Performed By: #### T4, BNP, MG, TSH, CMADM, CRP, CMP ####[facility] Hwqtzizgre[address] [place] [address]Dr. Selenaneil DeuceHSTROP6.9 pg/mLNormal4.0-51.3TMount St. [facility] Comment on above:Result Comment: CUT-OFF POINTS HAVE BEEN ESTABLISHED BASED ON THE FOURTH UNIVERSAL DEFINITIONS OF MYOCARDIALINFARCTION. THE UPPER REFERENCE LIMIT (URL) OF TROPONIN, DEFINED THE 99TH PERCENTILE OFcTnI DISTRIBUTION IN A REFERENCE POPULATION, HAS BEEN CONFIRMED THE DECISION THRESHOLDFOR UT DIAGNO SIS.Performed By: #### T4, BNP, MG, TSH, CMADM, CRP, CMP ####[facility] Lsmsxiukul[address] [place] [address]Dr. Airam VojduLEY041 ng/mL Critically high9-82The [facility] CenterComment on above:Performed By: #### T4, BNP, MG, TSH, CMADM, CRP, CMP ####[facility] Axkwrznlyy295[address] [place], [place] [address]Dr. Airam TripathiCBC AUTO DIFFon 57-96-7727TVWC #0.0 103/ulNormal0.0-0.1The [facility] CenterComment on above:Performed By: #### CBC ####[facility] Ffhdlfwnwd[address] [place], [place] [address]Dr. Airam ChangBasophils/100 WBC (Bld)0.2 %Normal0.2-2.0The [facility] CenterComment on above:Performed By: #### CBC ####[facility] Ihgapdheno4617[address] [place], [place] [address]Dr.Selenalan ChangEO #0.2 103/ulNormal0.0-0.7The [facility] CenterComment on above:Performed By: #### CBC ####[facility] Llzbfvjshh5114[address] [place], [place] [address]Dr.Airam ChangEosinophils/100 WBC (Bld)1.5 %Normal0.9-7.0The [facility] CenterComment on above:Performed By: #### CBC ####[facility] Yrgofgondc5911[address] [place], [place] [address]Dr.Airam ChangErythrocyte distribution width (RBC) [Ratio]12.7 %Normal 11.0-15.0The [facility] CenterComment on above:Performed By: #### CBC ####[facility] Auchbylezn4030[address] [place], [place] [address]Dr. Airam ChangHematocrit (Bld) [Volume fraction]30.0 %Critically low36.0-48.0The [facility] CenterComment on above:Performed By: #### CBC ####[facility] Hzlyrayivx0629[address] [place], [place] [address]Dr.Airam ChangHemoglobin (Bld) [Mass/Vol]9.6 g/dLCritically low12.0-16.0The [facility] CenterComment on above:Performed By: #### CBC ####[facility] Rqcadgatst8432[address] [place], [place] [address]Dr.Yilan ChangIG #0.11 10e3/ulCritically high0.00-0.03 The [facility] CenterComment on above:Performed By: #### CBC ####[facility] Biemeusyww[address] [place] [address]DrBroderick TripathiIG % 1.1 %Critically high0.0-0.5The [facility] HospitalComment on above:Performed By: #### CBC ####[facility] Vzajsvjgfm37[address] [place], [place] [address]Dr.iAram DossH #1.5 103/ulNormal1.2-3.8The [facility] HospitalComment on above:Performed By: #### CBC ####[facility] Hnlcibdvqh36[address] [place], [place] [address]DrBroderick Dosshocytes/100 WBC (Bld)14.9 % Critically low20.5-60.0The [facility] CenterComment on above:Performed By: #### CBC ####[facility] Fayajjbgwx008[address] [place], [place] [address]Dr. Airam TripathiALTAMONTUAL DIFF REQNONormalThe [facility] CenterComment on above: Performed By: #### CBC ####[facility] Ytktkmyawe220[address] [place], [place] [address]Dr.Airam TripathiMEDISYS HEALTH NETWORK (RBC) [Entitic mass]30.0 pgNormal 26.7-34.0The [facility] CenterComment on above:Performed By: #### CBC ####[facility] Zoomdjxpbb2858[address] [place], [place] [address]Dr. Airam TripathiST. PETER'[facility] (RBC) [Mass/Vol]32.0 g/vCEhzdfl43.9-35.2The [facility] Comment on above:Performed By: #### CBC ####[facility] Bhlctsksqe4655[address] [place], [place] [address]DrBroderick TripathiJACKSON [facility] (RBC) [Entitic vol]93.8 fL Krpmdw08.0-99.0The [facility] CenterComment on above:Performed By: #### CBC ####[facility] Uorpaqvjcx6339[address] [place], [place] [address]DrKianna TripathiMONO #0.8 103/ulNormal0.3-0.8The [facility] CenterComment on above: Performed By: #### CBC ####[facility] Kxlphbotjk[address] [place] [address]Dr.Selenalan ChangMonocytes/100 WBC (Bld)7.3 %Normal 1.7-12.0The [facility] CenterComment on above:Performed By: #### CBC ####[facility] Nptvhywyss8[address] [place], [place] [address]Dr. Yilan ChangNEUT #7.8 103/ulCritically high1.4-6.5The [facility] CenterComment on above:Performed By: #### CBC ####[facility] Mkanfcqrpe3532[address] [place], [place] [address]Dr.Yilan ChangNeutrophils/100 WBC (Bld)75.0 %Normal 43.0-75.0The [facility] CenterComment on above:Performed By: #### CBC ####[facility] Wofcwjsksx92[address] [place], [place] [address]Dr. Airam ChangPlatelet mean volume (Bld) [Entitic vol]9.1 fLCritically low9.5-13.5 The [facility] CenterComment on above:Performed By: #### CBC ####[facility] Qiotovdpdr[address] [place], [place] [address]Dr.Yilan OabuqUJL275 103/rpXlxect300-576Wjq [facility] CenterComment on above:Performed By: #### CBC ####[facility] Vnbenylqsz[address] [place], [place] [address]Dr. Yineil ChangRBC3.20 106/ulCritically low4.20-5.40The [facility] CenterComment on above:Performed By: #### CBC ####[facility] Xbhzdmoarv8[address] [place], [place] [address]Dr.Selenalan StgoiILX57.4 103/ulNormal4.0-11.0The [facility] CenterComment on above:Performed By: #### CBC ####[facility] [address]mesedj[address] [place] [address]Dr.Airam TripathiCRPon 10-09-0017UUK [Mass/Vol]mg/LNormal<=1.0The [facility] CenterComment on above: Performed By: #### T4, BNP, MG, TSH, CMADM, CRP, CMP ####[facility] Zdmcrgvhuo[address] [place] [address]Dr. Airam ChangCT HEAD WO CON on 27-72-1006KT HEAD WO CONNormalThe [facility] CenterCovid-19 PCR (CVDTBH)on 61-02-5201SXWI-CoV-2 (COVID-19) RNA MIKE+probe Ql (Unsp spec)Not detectedNormal NOT DETECTEDThe [facility] CenterComment on above:Result Comment: When diagnostic [...] for this test is supported by the [place] of Health and Human Service's declaration that [...] no longer be used).Performed By: #### CVDTBH ####[facility] [address]rfyfxpj[address] [place] [address]Dr. Airam ChangLACTATE/LACTIC ACIDon 04-22-3642Lhpcyoi [Moles/Vol]0.5 mmol/LNormal0.4-1.9The [facility] CenterComment on above:Performed By: #### LACT ####[facility] Xzcnfvruwk[address] [place], [place] [address]Dr. Airam TripathiMAGNESIUMon 76-12-3524Lfffusrzl [Mass/Vol]1.9 mg/dLNormal1.8-2.4The [facility] CenterComment on above:Performed By: #### T4, BNP, MG, TSH, CMADM, CRP, CMP ####[facility] [address] [place] [address]Dr. Selenalan ChangPROF 14(COMP METB)on 80-40-0299Canqywi [Mass/Vol]3.8 g/dL Normal3.4-5.0The [facility] CenterComment on above:Performed By: #### T4, BNP, MG, TSH, CMADM, CRP, CMP ####[facility] L[address]jfxkctc[address] [place] [address]Dr. Airam ChangAlbumin/Globulin [Mass ratio]1.1 {ratio}NormalThe [facility] CenterComtr[facility] on above:Performed By: #### T4, BNP, MG, TSH, CMADM, CRP, CMP ####[facility] Xnmgvzalhe[address] [place], [place] [address]Dr. Selenalan ChangALP [Catalytic activity/Vol]161 U/L Critically kzew14-296Wvo [facility] CenterComment on above:Performed By: #### T4, BNP, MG, TSH, CMADM, CRP, CMP ####[facility] Myptrzwzfa[address] [place] [address]Dr. Selenalan ChangALT [Catalytic activity/Vol]21 U/L Edyrqz33-84Mor [facility] CenterComment on above:Performed By: #### T4, BNP, MG, TSH, CMADM, CRP, CMP ####[facility] X[address]xhmqq[address] [place] [address]Dr. Selenalan DeuceAnion gap [Moles/Vol]12.6 mmol/LNormal The [facility] CenterComment on above:Performed By: #### T4, BNP, MG, TSH, CMADM, CRP, CMP ####[facility] X[address]cqalfyg[address] [place] [address]Dr. Selenalan ChangAST [Catalytic activity/Vol]30 U/ZTtuwnb14-15Dtu [facility] CenterComment on above:Performed By: #### T4, BNP, MG, TSH, CMADM, CRP, CMP ####[facility] Twephimgya[address] [place] [address]Dr. Yilan ChangBilirubin [Mass/Vol]0.3 mg/dLNormal0.2-1.0The [facility] CenterComment on above:Performed By: #### T4, BNP, MG, TSH, CMADM, CRP, CMP ####[facility] Qfufyncorp[address] [place] [address]Dr. Yilan ChangCalcium [Mass/Vol]8.8 mg/dLNormal8.5-10.1The [facility] CenterComment on above:Performed By: #### T4, BNP, MG, TSH, CMADM, CRP, CMP ####[facility] Swxwdbqshb8[address] [place], [place] [address]Dr. Yilan Tripathi Chloride [Moles/Vol]91 mmol/LCritically utk88-664Wpz [facility] on above:Performed By: #### T4, BNP, MG, TSH, CMADM, CRP, CMP ####[facility] Vrmrupmenp94[address] [place], [place] [address]Dr. Yilan ChangCO2 [Moles/Vol]26.9 mmol/KJrjgyy01.0-32.0The [facility] CenterComtr[facility] on above: Performed By: #### T4, BNP, MG, TSH, CMADM, CRP, CMP ####[facility] Dpnwostmne34[address] [place], [place] [address]Dr. Yilan ChangCreatinine [Mass/Vol]1.83 mg/dLCritically high0.55-1.02The [facility] on above:Performed By: #### T4, BNP, MG, TSH, CMADM, CRP, CMP ####[facility] Kcdmxmxfok04[address] [place], [place] [address]Dr. Yilan ChangEGFR-AF ZRPQGHFM02 mL/min/1.76s4Gwehxvdtnr low>=60The [facility] CenterComment on above: Performed By: #### T4, BNP, MG, TSH, CMADM, CRP, CMP ####[facility] Argosuyabr[address] [place] [address]Dr. Yilan ChangEGFR-NON AF ZYWGJMQU17 mL/min/1.83g2Gefsiawwvy low>=60The [facility] CenterComment on above: Performed By: #### T4, BNP, MG, TSH, CMADM, CRP, CMP ####[facility] Eijjiqhawr[address] [place] [address]Dr. Yilan ChangGlobulin (S) [Mass/Vol]3.5 g/dLNormalThe [facility] CenterComment on above:Performed By: #### T4, BNP, MG, TSH, CMADM, CRP, CMP ####[facility] Rkhtbkeraj[address] [place] [address]Dr. Yilan ChangGlucose [Mass/Vol]96 mg/dLNormal 74-106The [facility] CenterComment on above:Performed By: #### T4, BNP, MG, TSH, CMADM, CRP, CMP ####[facility] Sftscoplhh[address] [place] [address]Dr. Yilan ChangPotassium [Moles/Vol]4.5 mmol/LNormal3.5-5.1The [facility] CenterComment on above:Performed By: #### T4, BNP, MG, TSH, CMADM, CRP, CMP ####[facility] Spdhadnsog[address] [place] [address]Dr. Yilan ChangProtein [Mass/Vol]7.3 g/dLNormal6.4-8.2The [facility] Comment on above:Performed By: #### T4, BNP, MG, TSH, CMADM, CRP, CMP ####[facility] Adxyuktwie[address] [place] [address]Dr. Yilan ChangSodium [Moles/Vol]126 mmol/LCritically svf284-536Cxn [facility] CenterComment on above:Performed By: #### T4, BNP, MG, TSH, CMADM, CRP, CMP ####[facility] Sptcgreldz[address] [place] [address]Dr. Yilan ChangUrea nitrogen [Mass/Vol]34.0 mg/dLCritically high7.0-18.0The [facility] CenterComment on above:Performed By: #### T4, BNP, MG, TSH, CMADM, CRP, CMP ####[facility] Zecubrvpyl[address] [place], [place] [address]Dr. Yilan ChangUrea nitrogen/Creatinine [Mass ratio]18.6 mg/mgNormalThe [facility] CenterComment on above:Performed By: #### T4, BNP, MG, TSH, CMADM, CRP, CMP ####[facility] Okdwskgarz46[address] [place], [place] [address]Dr. Yilan ChangAlbumin [Mass/Vol]3.4 g/dLNormal3.4-5.0The [facility] CenterComment on above:Performed By: #### CMP ####[facility] Yyldqsnkzi0901[address] [place], [place] [address]Dr.Yilan ChangAlbumin/Globulin [Mass ratio]1.0 {ratio} NormalThe [facility] CenterComment on above:Performed By: #### CMP ####[facility] Myuupjjizg6958[address] [place], [place] [address]Dr.Yilan ChangALP [Catalytic activity/Vol]151 U/LCritically mifv64-547Eek [facility] CenterComment on above:Performed By: #### CMP ####[facility] Hyxhzvjnox17[address] [place], [place] [address]Dr.Yilan ChangALT [Catalytic activity/Vol]20 U/LNormal 14-59The [facility] CenterComment on above:Performed By: #### CMP ####[facility] Pzaejrvwlc32[address] [place], [place] [address]Dr.Yilan ChangAnion gap [Moles/Vol]11.7 mmol/LNormalHocking Valley Community HospitalComment on above:Performed By: #### CMP ####[facility] Lantupjdjo5159[address] [place], [place] [address]Dr.Yilan ChangAST [Catalytic activity/Vol]28 U/EYhkkxr07-28Urk [facility] CenterComment on above:Performed By: #### CMP ####[facility] Idvbtopbig4332[address] [place], [place] [address]Dr.Yilan ChangBilirubin [Mass/Vol]0.3 mg/dLNormal0.2-1.0The [facility] CenterComment on above:Performed By: #### CMP ####[facility] Wmasipdfzm7398[address] [place], [place] [address]Dr.Yilan ChangCalcium [Mass/Vol]8.5 mg/dLNormal8.5-10.1The [facility] CenterComment on above:Performed By: #### CMP ####[facility] Fkvthxgcec1559[address] [place], [place] [address]Dr.Yilan ChangChloride [Moles/Vol]91 mmol/LCritically qfk87-049Vup [facility] CenterComment on above: Performed By: #### CMP ####[facility] Ycvdpoqspt8359[address] [place], [place] [address]Dr.Yilan ChangCO2 [Moles/Vol]28.3 mmol/LNormal 21.0-32.0The [facility] CenterComment on above:Performed By: #### CMP ####[facility] Tmeexqskae2009[address] [place], [place] [address]Dr. Yilan ChangCreatinine [Mass/Vol]1.68 mg/dLCritically high0.55-1.02The [facility] CenterComment on above:Performed By: #### CMP ####[facility] Rukfcgarmn220[address] [place], [place] [address]Dr.Yilan ChangEGFR-AF MQIJSTGB86 mL/min/1.18p6Iibzrfibet low>=60The [facility] CenterComment on above: Performed By: #### CMP ####[facility] Aeesskvbwa7905[address] [place], [place] [address]Dr.Yilan ChangEGFR-NON AF LAUDVEGI56 mL/min/1.73m2 Critically low>=60The [facility] CenterComment on above:Performed By: #### CMP ####[facility] Puitlxvjef5499[address] [place], [place] [address]Dr. Yilan ChangGlobulin (S) [Mass/Vol]3.5 g/dLNormalThe [facility] CenterComment on above:Performed By: #### CMP ####[facility] Nawnbvzunj[address] [place] [address]Dr.Airam ChangGlucose [Mass/Vol]74 mg/tIJqhzkh15-910 The [facility] CenterComment on above:Performed By: #### CMP ####[facility] Jcrfbyrkox4022[address] [place], [place] [address]Dr.Airam Tripathi Potassium [Moles/Vol]4.0 mmol/LNormal3.5-5.1The [facility] CenterComment on above:Performed By: #### CMP ####[facility] Gyiumevflz3186[address] [place], [place] [address]Dr.Airam ChangProtein [Mass/Vol]6.9 g/dLNormal6.4-8.2 The [facility] CenterComtr[facility] on above:Performed By: #### CMP ####[facility] Xeptjcxdug1020[address] [place], [place] [address]Dr.Airam ChangSodium [Moles/Vol]127 mmol/LCritically osq313-357Vnz [facility] CenterComment on above:Performed By: #### CMP ####[facility] Ucjvdblxvb7178[address] [place], [place] [address]Dr.Airam ChangUrea nitrogen [Mass/Vol]29.0 mg/dL Critically high7.0-18.0The [facility] CenterComtr[facility] on above:Performed By: #### CMP ####[facility] Bozkqmsbsr5268[address] [place], [place] [address]Dr. Airam ChangUrea nitrogen/Creatinine [Mass ratio]17.3 mg/mgNormalThe [facility] CenterComment on above:Performed By: #### CMP ####[facility] Rrybppazqb401[address] [place], [place] [address]Dr.Airam IbltwC7ev 06-13-2022 T4 [Mass/Vol]6.80 ug/dLNormal4.80-13.90The [facility] on above: Performed By: #### T4, BNP, MG, TSH, CMADM, CRP, CMP ####[facility] Bnzimcmwkp7[address] [place], [place] [address]Dr. Airam ChangTSHon 72-86-8212RPV0.101 uIU/mLCritically low0.358-3.740The [facility] CenterComment on above:Performed By: #### T4, BNP, MG, TSH, CMADM, CRP, CMP ####[facility] Dsjbqukuqx[address] [place] [address]Dr. Airam Tripathi OSMOLALITYon 99-88-1939Nhijhqhypq [Osmolality]272 mosm/kgCritically vdn672-632 The [facility] CenterComment on above:Performed By: #### OSMO ####[facility] Fnrxpraxcc307[address] [place], [place] [address]Dr. Airam TripathiCBC AUTO DIFFon 11-30-8618DZKV #0.0 103/ulNormal0.0-0.1The [facility] CenterComment on above:Performed By: #### CBC ####[facility] Kyzykwpygl485[address] [place], [place] [address]Dr.Airam ChangBasophils/100 WBC (Bld)0.3 %Normal 0.2-2.0The [facility] CenterComment on above:Performed By: #### CBC ####[facility] Znjhscuodj901[address] [place], [place] [address]Dr.Airam ChangEO # 0.2 103/ulNormal0.0-0.7The [facility] CenterComment on above:Performed By: #### CBC ####[facility] Ygamkpmqyd1955[address] [place], [place] [address]Dr. Airam ChangEosinophils/100 WBC (Bld)2.5 %Normal0.9-7.0The [facility] Comment on above:Performed By: #### CBC ####[facility] Jdfkdlkwjq8486[address] [place], [place] [address]Dr.Airam ChangErythrocyte distribution width (RBC) [Ratio]12.9 %Tsmvbl03.0-15.0The [facility] CenterComment on above: Performed By: #### CBC ####[facility] Ynwnmvgltd[address] [place], [place] [address]Dr.Airam TripathiHematocrit (Bld) [Volume fraction]29.8 % Critically low36.0-48.0The [facility] CenterComment on above:Performed By: #### CBC ####[facility] Csxxlnnbrp[address] [place] [address]DrKianna TripathiHemoglobin (Bld) [Mass/Vol]9.7 g/dLCritically low12.0-16.0The [facility] HospitalComment on above:Performed By: #### CBC ####[facility] Czhdincaih65[address] [place], [place] [address]DrBroderick TripathiIG #0.03 10e3/ulNormal0.00-0.03The [facility] HospitalComment on above:Performed By: #### CBC ####[facility] Wxzzotvmtq0465[address] [place], [place] [address]DrKianna TripathiIG %0.3 %Normal0.0-0.5The [facility] CenterComment on above:Performed By: #### CBC ####[facility] Tqqgffzlsm2794[address] [place], [place] [address]Dr.Airam TripathiLYMPH #1.3 103/ulNormal1.2-3.8The [facility] Comment on above:Performed By: #### CBC ####[facility] Dvhjmynkuk4[address] [place], [place] [address]DrBroderick TripathiLymphocytes/100 WBC (Bld)14.6 %Critically low20.5-60.0The [facility] CenterComment on above:Performed By: #### CBC ####[facility] Jxljhmvjzy4445[address] [place], [place] [address]Dr.Airam TripathiMANUAL DIFF REQNONormalThe [facility] CenterComment on above: Performed By: #### CBC ####[facility] Qnfiieqfve490[address] [place], [place] [address]DrBroderick TriptahiMEDISYS HEALTH NETWORK (RBC) [Entitic mass]30.6 pgNormal 26.7-34.0The [facility] CenterComment on above:Performed By: #### CBC ####[facility] Izplnjltgr609[address] [place], [place] [address]Dr. Airam TripathiST. [facility]ER'[facility] (RBC) [Mass/Vol]32.6 g/wWNubgbt63.9-35.2The [facility] Comment on above:Performed By: #### CBC ####[facility] Xbzibfdkwn874[address] [place], [place] [address]Dr.Airam TripathiMCV (RBC) [Entitic vol]94.0 fL Oqrunb57.0-99.0The [facility] CenterComment on above:Performed By: #### CBC ####[facility] Pkyvrqudmj4426[address] [place], [place] [address]Dr. Airam ChangMONO #0.5 103/ulNormal0.3-0.8The [facility] HospitalComment on above: Performed By: #### CBC ####[facility] Rlclkkvbgf597[address] [place], [place] [address]Dr.Airam ChangMonocytes/100 WBC (Bld)5.7 %Normal 1.7-12.0The [facility] CenterComment on above:Performed By: #### CBC ####[facility] Crzeeiudwv1979[address] [place], [place] [address]Dr. Airam ChangNEUT #6.9 103/ulCritically high1.4-6.5The [facility] CenterComment on above:Performed By: #### CBC ####[facility] Gaerdsmofz8515[address] [place], [place] [address]Dr.Airam ChangNeutrophils/100 WBC (Bld)76.6 % Critically high43.0-75.0The [facility] HospitalComment on above:Performed By: #### CBC ####[facility] Gzcpvjtkmk5838[address] [place], [place] [address]Dr. Selenaneil ChangPlatelet mean volume (Bld) [Entitic vol]9.2 fLCritically low9.5-13.5 The [facility] CenterComment on above:Performed By: #### CBC ####[facility] Dzvbmujcva1396[address] [place], [place] [address]Dr.Selenalan IbzmcHDU621 103/mzDzsupu712-465Rci [facility] CenterComment on above:Performed By: #### CBC ####[facility] Jcqsamdzou[address] [place], [place] [address]Dr. Airam ChangRBC3.17 106/ulCritically low4.20-5.40The [facility] CenterComment on above:Performed By: #### CBC ####[facility] Ycguhwowan9612[address] [place], [place] [address]Dr.Airam ChangWBC9.1 103/ulNormal4.0-11.0The [facility] CenterComment on above:Performed By: #### CBC ####[facility] Cuvxwbsguv7997[address] [place], [place] [address]Dr.Airam ChangPROF 14(COMP METB)on 96-14-0405Tkvjrps [Mass/Vol]3.4 g/dLNormal3.4-5.0The [facility] Comment on above:Performed By: #### CMP ####[facility] Yfpakuqhdw7254[address] [place], [place] [address]Dr.Airam ChangAlbumin/Globulin [Mass ratio] 1.0 {ratio}NormalThe [facility] CenterComment on above:Performed By: #### CMP ####[facility] Rtnneianhn4429[address] [place], [place] [address]Dr. Airam ChangALP [Catalytic activity/Vol]156 U/LCritically jfmf66-681Lab [facility] CenterComment on above:Performed By: #### CMP ####[facility] Ullkufpqaj2196[address] [place], [place] [address]Dr.Airam ChangALT [Catalytic activity/Vol]18 U/XZongmk93-32Yft [facility] CenterComment on above:Performed By: #### CMP ####[facility] Ksvnjbuklc5666[address] [place], [place] [address]Dr.Airam TripathiAnion gap [Moles/Vol]10.8 mmol/LNormalThe [facility] Comment on above:Performed By: #### CMP ####[facility] Gweonjmbpo8946[address] [place], [place] [address]Dr.Selenalan ChangAST [Catalytic activity/Vol]27 U/BFaeuha87-99Bly [facility] CenterComment on above:Performed By: #### CMP ####[facility] Gdbokyoirz4[address] [place] [address]Dr. Yilan ChangBilirubin [Mass/Vol]0.2 mg/dLNormal0.2-1.0The [facility] Comment on above:Performed By: #### CMP ####[facility] Cfcdrhzgfn0879[address] [place], [place] [address]Dr.Yilan ChangCalcium [Mass/Vol]8.1 mg/dL Critically low8.5-10.1The [facility] CenterComment on above:Performed By: #### CMP ####[facility] Cnqwjvaeyc8623[address] [place], [place] [address]Dr. Yilan ChangChloride [Moles/Vol]92 mmol/LCritically vne89-596Qic [facility] CenterComment on above:Performed By: #### CMP ####[facility] Pagzxvqoyh617[address] [place], [place] [address]Dr.Yilan ChangCO2 [Moles/Vol] 27.4 mmol/JYyakiw66.0-32.0The [facility] CenterComment on above:Performed By: #### CMP ####[facility] Jpccoxuiii2807[address] [place], [place] [address]Dr.Yilan ChangCreatinine [Mass/Vol]1.57 mg/dLCritically high0.55-1.02The [facility] CenterComment on above:Performed By: #### CMP ####[facility] Zwvssqfyvh4864[address] [place], [place] [address]Dr.Yilan ChangEGFR-AF IVZOIZOK70 mL/min/1.25k2Oiacujahik low>=60The [facility] CenterComment on above: Performed By: #### CMP ####[facility] Xeanbukfkv205[address] [place], [place] [address]Dr.Yilan ChangEGFR-NON AF CVSSHLKO22 mL/min/1.73m2 Critically low>=60The [facility] CenterComment on above:Performed By: #### CMP ####[facility] Dscnhitusl1528[address] [place], [place] [address]Dr. Yilan ChangGlobulin (S) [Mass/Vol]3.4 g/dLNormalThe [facility] CenterComment on above:Performed By: #### CMP ####[facility] Cchkxxqqyv57[address] [place] [address]Dr.Airam ChangGlucose [Mass/Vol]82 mg/nCZeagjm78-229 The [facility] CenterComment on above:Performed By: #### CMP ####[facility] Fnumnbtqbx6138[address] [place], [place] [address]Dr.Airam Tripathi Potassium [Moles/Vol]4.2 mmol/LNormal3.5-5.1The [facility] CenterComment on above:Performed By: #### CMP ####[facility] Xjubmbhnak0148[address] [place], [place] [address]Dr.Airam TripathiProtein [Mass/Vol]6.8 g/dLNormal6.4-8.2 The [facility] CenterComment on above:Performed By: #### CMP ####[facility] Epreoavuwl1769[address] [place], [place] [address]Dr.Airam TripathiSodium [Moles/Vol]126 mmol/LCritically hag946-915Ftt [facility] CenterComment on above:Performed By: #### CMP ####[facility] Nwlwucbsbd2664[address] [place], [place] [address]Dr.Airam ChangUrea nitrogen [Mass/Vol]35.0 mg/dL Critically high7.0-18.0The [facility] CenterComment on above:Performed By: #### CMP ####[facility] Eounmgfoes8046[address] [place], [place] [address]Dr. Airam ChangUrea nitrogen/Creatinine [Mass ratio]22.3 mg/mgNormalThe [facility] CenterComment on above:Performed By: #### CMP ####[facility] Dsbargosyo3010[address] [place], [place] [address]Dr.Airam ChangOSMOLALITYon 28-15-2648Vvqqzysvoc [Osmolality]276 mosm/ueJimrqt914-606Nvx [facility] Comment on above:Performed By: #### OSMO ####[facility] Mwnyxttman0134[address] [place], [place] [address]Dr. Airam TripathiCBC AUTO DIFFon 06-01-2022 BASO #0.1 103/ulNormal0.0-0.1The [facility] CenterComment on above:Performed By: #### CBC ####[facility] Ilggkazhsy8247[address] [place], [place] [address]Dr.Yilan ChangBasophils/100 WBC (Bld)0.7 %Normal0.2-2.0The [facility] CenterComment on above:Performed By: #### CBC ####[facility] Evuvnbznnv538[address] [place], [place] [address]Dr.Yilan ChangEO #0.3 103/ul Normal0.0-0.7The [facility] CenterComment on above:Performed By: #### CBC ####[facility] Ukyjyfjlle1240[address] [place], [place] [address]Dr. Selenalan ChangEosinophils/100 WBC (Bld)3.3 %Normal0.9-7.0The [facility] Comment on above:Performed By: #### CBC ####[facility] Wkrdrhvwkn033[address] [place], [place] [address]Dr.Airam ChangErythrocyte distribution width (RBC) [Ratio]13.2 %Yegmcu29.0-15.0The [facility] CenterComment on above: Performed By: #### CBC ####[facility] Gckfzqgtzp4665[address] [place], [place] [address]Dr.Airam ChangHematocrit (Bld) [Volume fraction]32.0 % Critically low36.0-48.0The [facility] CenterComment on above:Performed By: #### CBC ####[facility] Hhzxrdqvjh6265[address] [place], [place] [address]Dr. Selenalan ChangHemoglobin (Bld) [Mass/Vol]10.3 g/dLCritically low12.0-16.0The [facility] CenterComment on above:Performed By: #### CBC ####[facility] Ljwtxvhkgn8978[address] [place], [place] [address]Dr.Selenalan ChangIG #0.05 10e3/ulCritically high0.00-0.03The [facility] CenterComment on above:Performed By: #### CBC ####[facility] Myzadiwusg[address] [place] [address]Dr.Airam TripathiIG %0.7 %Critically high0.0-0.5The [facility] CenterComment on above:Performed By: #### CBC ####[facility] Kmftijnqys50[address] [place] [address]Dr.Airam TripathiLYMPH #1.7 103/ulNormal1.2-3.8The [facility] CenterComment on above:Performed By: #### CBC ####[facility] Zqheclpqoo38[address] [place], [place] [address]Dr.Airam TripathiLymphocytes/100 WBC (Bld)22.6 %Vifulb32.5-60.0The [facility] CenterComment on above:Performed By: #### CBC ####[facility] Crriydszqh7074[address] [place], [place] [address]Dr.Airam TripathiMANUAL DIFF REQNONormalThe [facility] CenterComment on above:Performed By: #### CBC ####[facility] Hsxeembntt8585[address] [place], [place] [address]Dr.Airam TripathiMEDISYS HEALTH NETWORK (RBC) [Entitic mass]30.8 pgNormal 26.7-34.0The [facility] CenterComment on above:Performed By: #### CBC ####[facility] Dumsycrlkh[address] [place], [place] [address]Dr. Airam TripathiST. PETER'[facility] (RBC) [Mass/Vol]32.2 g/nGLeeios24.9-35.2The [facility] Comment on above:Performed By: #### CBC ####[facility] Tjfikayoug4[address] [place], [place] [address]Dr.Airam TripathiV (RBC) [Entitic vol]95.8 fL Esrqwb88.0-99.0The [facility] CenterComment on above:Performed By: #### CBC ####[facility] Fopyqntmgi9618[address] [place], [place] [address]Dr. Airam TripathiMONO #0.6 103/ulNormal0.3-0.8The [facility] CenterComment on above: Performed By: #### CBC ####[facility] [address]awttennj[address] [place] [address]Dr.Airam ChangMonocytes/100 WBC (Bld)8.6 %Normal 1.7-12.0The [facility] on above:Performed By: #### CBC ####[facility] Sxrznpphjq[address] [place] [address]Dr. Airam ChangNEUT #4.8 103/ulNormal1.4-6.5The [facility] CenterComment on above: Performed By: #### CBC ####[facility] Afcjqracnu60[address] [place] [address]Dr.Airam ChangNeutrophils/100 WBC (Bld)64.1 %Normal 43.0-75.0The [facility] CenterComtr[facility] on above:Performed By: #### CBC ####[facility] Fegqglfpxc[address] [place], [place] [address]Dr. Airam TripathiPlatelet mean volume (Bld) [Entitic vol]10.0 fLNormal9.5-13.5The [facility] CenterComtr[facility] on above:Performed By: #### CBC ####[facility] Iymfyzrldt9[address] [place], [place] [address]Dr.Airam WqfkkZBH876 103/ul Voqezo928-339Bav [facility] on above:Performed By: #### CBC ####[facility] Cxefmrlgra7[address] [place], [place] [address]Dr. Airam ChangRBC3.34 106/ulCritically low4.20-5.40The [facility]Com[facility] on above:Performed By: #### CBC ####[facility] Vxlmsdvidw[address] [place], [place] [address]Dr.Airam ChangWBC7.5 103/ulNormal4.0-11.0The [facility] on above:Performed By: #### CBC ####[facility] Xecqxlwdfm[address] [place], [place] [address]Dr.Selenalan ChangPROF 14(COMP METB)on 67-57-4049Qbakjje [Mass/Vol]3.5 g/dLNormal3.4-5.0The [facility] Comment on above:Performed By: #### CMP ####[facility] [address] [place] [address]Dr.Yilan ChangAlbumin/Globulin [Mass ratio] 1.1 {ratio}NormalThe [facility] CenterComment on above:Performed By: #### CMP ####[facility] [address]cbwj[address] [place] [address]Dr. Yilan ChangALP [Catalytic activity/Vol]167 U/LCritically mexy33-989Aqa [facility] CenterComment on above:Performed By: #### CMP ####[facility] Osbuzswqyu90[address] [place], [place] [address]Dr.Yilan ChangALT [Catalytic activity/Vol]24 U/ATzwfzm15-97Dmi [facility] CenterComment on above:Performed By: #### CMP ####[facility] Nwphjmyzdg78[address] [place], [place] [address]Dr.Yilan ChangAnion gap [Moles/Vol]14.1 mmol/LNormalThe [facility] Comment on above:Performed By: #### CMP ####[facility] Myteeakvvq75[address] [place], [place] [address]Dr.Yilan ChangAST [Catalytic activity/Vol]27 U/PUnsiid17-21Mpc [facility] CenterComment on above:Performed By: #### CMP ####[facility] Hozlwnvmqm545[address] [place], [place] [address]Dr. Yilan ChangBilirubin [Mass/Vol]0.3 mg/dLNormal0.2-1.0The [facility] Comment on above:Performed By: #### CMP ####[facility] Cunvvsbhys2110[address] [place], [place] [address]Dr.Yilan ChangCalcium [Mass/Vol]8.0 mg/dL Critically low8.5-10.1The [facility] CenterComment on above:Performed By: #### CMP ####[facility] Zlbeclwnpt01[address] [place], [place] [address]Dr. Yilan ChangChloride [Moles/Vol]96 mmol/LCritically dzs60-656Ktb [facility] CenterComment on above:Performed By: #### CMP ####[facility] Ruxjmhntrm6164[address] [place], [place] [address]Dr.Yilan ChangCO2 [Moles/Vol] 24.6 mmol/OPjipra64.0-32.0The [facility] CenterComment on above:Performed By: #### CMP ####[facility] Fnrvoqfqtg5727[address] [place], [place] [address]Dr.Yilan ChangCreatinine [Mass/Vol]1.79 mg/dLCritically high0.55-1.02The [facility] CenterComment on above:Performed By: #### CMP ####[facility] Etjespkygd9584[address] [place], [place] [address]Dr.Yilan ChangEGFR-AF ZPNXLAMC82 mL/min/1.21b9Malprewsav low>=60The [facility] CenterComment on above: Performed By: #### CMP ####[facility] Sxeejlvebg3044[address] [place], [place] [address]Dr.Yilan ChangEGFR-NON AF GAUVEXRW87 mL/min/1.73m2 Critically low>=60The [facility] CenterComment on above:Performed By: #### CMP ####[facility] Tsiytbzrra6886[address] [place], [place] [address]Dr. Airam ChangGlobulin (S) [Mass/Vol]3.3 g/dLNormalThe [facility] CenterComment on above:Performed By: #### CMP ####[facility] Ixmwqvjvlm6896[address] [place], [place] [address]Dr.Yilan ChangGlucose [Mass/Vol]58 mg/dLCritically low 74-106The [facility] CenterComment on above:Performed By: #### CMP ####[facility] Xkbpivtuez6016[address] [place], [place] [address]Dr.Yilan Tripathi Potassium [Moles/Vol]4.7 mmol/LNormal3.5-5.1The [facility] CenterComment on above:Performed By: #### CMP ####[facility] Wopimbozlr2525[address] [place], [place] [address]Dr.Yilan ChangProtein [Mass/Vol]6.8 g/dLNormal6.4-8.2 The [facility] CenterComment on above:Performed By: #### CMP ####[facility] Zioepfnwhw8701[address] [place], [place] [address]Dr.Airam ChangSodium [Moles/Vol]130 mmol/LCritically nhg827-776Mbp [facility] CenterComment on above:Performed By: #### CMP ####[facility] Fjmajnkbsa529[address] [place], [place] [address]Dr.Airam ChangUrea nitrogen [Mass/Vol]30.0 mg/dL Critically high7.0-18.0The [facility] CenterComment on above:Performed By: #### CMP ####[facility] Psxtpcjrug112[address] [place], [place] [address]Dr. Selenalan ChangUrea nitrogen/Creatinine [Mass ratio]16.8 mg/mgNormalThe [facility] CenterComment on above:Performed By: #### CMP ####[facility] Buoplczqao3538[address] [place], [place] [address]Dr.Airam ChangOSMOLALITYon 81-47-8019Vwozbndael [Osmolality]275 mosm/cwQqdfth841-140Jyt [facility] Comment on above:Performed By: #### OSMO ####[facility] Ezrvczoeob9611[address] [place], [place] [address]Dr. Airam TripathiCBC AUTO DIFFon 05-26-2022 BASO #0.0 103/ulNormal0.0-0.1The [facility] CenterComment on above:Performed By: #### CBC ####[facility] Qwwjxfpyew7875[address] [place], [place] [address]Dr.Airam TripathiBasophils/100 WBC (Bld)0.4 %Normal0.2-2.0The [facility] CenterComment on above:Performed By: #### CBC ####[facility] Rftbxmjhwt1798[address] [place], [place] [address]Dr.Selenalan ChangEO #0.3 103/ul Normal0.0-0.7The [facility] CenterComment on above:Performed By: #### CBC ####[facility] [address]qirtc[address] [place] [address]Dr. Airam ChangEosinophils/100 WBC (Bld)3.2 %Normal0.9-7.0The [facility] Comment on above:Performed By: #### CBC ####[facility] Vachieyxgr3597[address] [place], [place] [address]Dr.Airam ChangErythrocyte distribution width (RBC) [Ratio]13.0 %Nlrgrj89.0-15.0The [facility] CenterComment on above: Performed By: #### CBC ####[facility] Ywyxiurpne4797[address] [place], [place] [address]Dr.Airam ChangHematocrit (Bld) [Volume fraction]30.4 % Critically low36.0-48.0The [facility] CenterComment on above:Performed By: #### CBC ####[facility] Kwdjmtkghl9355[address] [place], [place] [address]Dr. Selenaneil ChangHemoglobin (Bld) [Mass/Vol]9.6 g/dLCritically low12.0-16.0The [facility] CenterComment on above:Performed By: #### CBC ####[facility] Zwpklppgiu9916[address] [place], [place] [address]Dr.Selenalan ChangIG #0.06 10e3/ulCritically high0.00-0.03The [facility] CenterComment on above:Performed By: #### CBC ####[facility] Wrzsrfjebo5129[address] [place], [place] [address]Dr.Airam ChangIG %0.7 %Critically high0.0-0.5The [facility] CenterComment on above:Performed By: #### CBC ####[facility] Qvgmhstbkj2226[address] [place], [place] [address]Dr.Selenalan ChangLYMPH #1.9 103/ulNormal1.2-3.8The [facility] CenterComment on above:Performed By: #### CBC ####[facility] Ajwkcouoen0105[address] [place], [place] [address]Dr.Airam ChangLymphocytes/100 WBC (Bld)20.6 %Nrbfzs83.5-60.0The [facility] HospitalComment on above:Performed By: #### CBC ####[facility] V[address]ujduyak[address] [place] [address]Dr.Airam TripathiMANUAL DIFF REQNONormalThe [facility] CenterComment on above:Performed By: #### CBC ####[facility] Csvwmcalhn60[address] [place] [address]Dr.Airam TripathiH (RBC) [Entitic mass]30.1 pgNormal 26.7-34.0The [facility] HospitalComment on above:Performed By: #### CBC ####[facility] Qiwtruicwa2757[address] [place], [place] [address]Dr. Airam TripathiHC (RBC) [Mass/Vol]31.6 g/cTDsiiwg42.9-35.2The [facility] Comment on above:Performed By: #### CBC ####[facility] Nnzxliwxki7710[address] [place], [place] [address]Dr.Airam TripathiV (RBC) [Entitic vol]95.3 fL Icvjit71.0-99.0The [facility] CenterComment on above:Performed By: #### CBC ####[facility] Cfztuyebem6423[address] [place], [place] [address]Dr. Airam TripathiMONO #0.6 103/ulNormal0.3-0.8The [facility] CenterComment on above: Performed By: #### CBC ####[facility] Javovgotpa4999[address] [place], [place] [address]Dr.Airam ChangMonocytes/100 WBC (Bld)6.9 %Normal 1.7-12.0The [facility] CenterComment on above:Performed By: #### CBC ####[facility] Rcxmqvzulf6474[address] [place], [place] [address]Dr. Airam TripathiNEUT #6.1 103/ulNormal1.4-6.5The [facility] CenterComment on above: Performed By: #### CBC ####[facility] Hdodwmvhyc0126[address] [place], [place] [address]Dr.Airam DeuceNeutrophils/100 WBC (Bld)68.2 %Normal 43.0-75.0The [facility] CenterComment on above:Performed By: #### CBC ####[facility] Tybqkiftew[address] [place] [address]Dr. Airam TripathiPlatelet mean volume (Bld) [Entitic vol]9.7 fLNormal9.5-13.5The [facility] CenterComment on above:Performed By: #### CBC ####[facility] Nyeftjevhe189[address] [place], [place] [address]Dr.Airam UwsxeXKV481 103/ul Zrarec746-408Frg [facility] CenterComment on above:Performed By: #### CBC ####[facility] Wkuvfuhomr5432[address] [place], [place] [address]Dr. Airam TripathiRBC3.19 106/ulCritically low4.20-5.40The [facility] CenterComment on above:Performed By: #### CBC ####[facility] Idguwpithb2870[address] [place], [place] [address]Dr.Airam ChangWBC9.0 103/ulNormal4.0-11.0The [facility] CenterComment on above:Performed By: #### CBC ####[facility] Hbonuaarnv487[address] [place], [place] [address]Dr.Airam TripathiPROF 14(COMP METB)on 19-89-5807Songuvl [Mass/Vol]3.4 g/dLNormal3.4-5.0The [facility] Comment on above:Performed By: #### CMP ####[facility] Doblfbpaie[address] [place], [place] [address]Dr.Airam TripathiAlbumin/Globulin [Mass ratio] 1.0 {ratio}NormalThe [facility] CenterComment on above:Performed By: #### CMP ####[facility] Qlhoqunmma887[address] [place], [place] [address]Dr. Airam TripathiALP [Catalytic activity/Vol]153 U/LCritically kmjh61-160Tbw [facility] CenterComment on above:Performed By: #### CMP ####[facility] Shgbwnnxcn9105[address] [place], [place] [address]Dr.Yilan ChangALT [Catalytic activity/Vol]21 U/OPysoka70-31Zmk [facility] CenterComment on above:Performed By: #### CMP ####[facility] Raccoktnhh4869[address] [place], [place] [address]Dr.Airam ChangAnion gap [Moles/Vol]13.6 mmol/LNormalThe [facility] Comment on above:Performed By: #### CMP ####[facility] Kfiysjtadd6018[address] [place], [place] [address]Dr.Airam ChangAST [Catalytic activity/Vol]23 U/QIhkegu47-87Clh [facility] CenterComment on above:Performed By: #### CMP ####[facility] Fbdmbtjxiv825[address] [place], [place] [address]Dr. Airam ChangBilirubin [Mass/Vol]0.2 mg/dLNormal0.2-1.0The [facility] Comment on above:Performed By: #### CMP ####[facility] Rnbggymfhx2557[address] [place], [place] [address]Dr.Yineil ChangCalcium [Mass/Vol]8.4 mg/dL Critically low8.5-10.1The [facility] CenterComment on above:Performed By: #### CMP ####[facility] Xzhrdgnswm725[address] [place], [place] [address]Dr. Yineil ChangChloride [Moles/Vol]97 mmol/LCritically uyk60-973Nqs [facility] CenterComment on above:Performed By: #### CMP ####[facility] Xnlmenvebh1714[address] [place], [place] [address]Dr.Yineil ChangCO2 [Moles/Vol] 25.2 mmol/NUvhopg93.0-32.0The [facility] CenterComment on above:Performed By: #### CMP ####[facility] Ipscogsmyh1458[address] [place], [place] [address]Dr.Yilan ChangCreatinine [Mass/Vol]1.58 mg/dLCritically high0.55-1.02The [facility] CenterComment on above:Performed By: #### CMP ####[facility] Rjxvkhhpcz5890[address] [place], [place] [address]Dr.Airam ChangEGFR-AF CEDTWJXD11 mL/min/1.79w5Iktjouklex low>=60The [facility] CenterComment on above: Performed By: #### CMP ####[facility] Ebokctzodd2525[address] [place], [place] [address]Dr.Selenalan ChangEGFR-NON AF DFYMQPUT42 mL/min/1.73m2 Critically low>=60The [facility] CenterComment on above:Performed By: #### CMP ####[facility] Magkepiwlu7535[address] [place], [place] [address]Dr. Airam TripathiGlobulin (S) [Mass/Vol]3.4 g/dLNormalThe [facility] CenterComment on above:Performed By: #### CMP ####[facility] Fcdnafhzez2089[address] [place], [place] [address]Dr.Airam ChangGlucose [Mass/Vol]74 mg/eSZxynia33-266 The [facility] CenterComment on above:Performed By: #### CMP ####[facility] Vgcbfpxeud6499[address] [place], [place] [address]Dr.Airam Tripathi Potassium [Moles/Vol]4.8 mmol/LNormal3.5-5.1The [facility] CenterComment on above:Performed By: #### CMP ####[facility] Vvkqmqvsts467[address] [place], [place] [address]Dr.Airam TripathiProtein [Mass/Vol]6.8 g/dLNormal6.4-8.2 The [facility] CenterComment on above:Performed By: #### CMP ####[facility] Yolvbrhnme437[address] [place], [place] [address]Dr.Airam ChangSodium [Moles/Vol]131 mmol/LCritically mai179-479Ykv [facility] CenterComment on above:Performed By: #### CMP ####[facility] Csgkacwfgm201[address] [place], [place] [address]Dr.Airam TripathiUrea nitrogen [Mass/Vol]31.0 mg/dL Critically high7.0-18.0The [facility] CenterComment on above:Performed By: #### CMP ####[facility] Rwbvezivhf[address] [place] [address]Dr. Airam ChangUrea nitrogen/Creatinine [Mass ratio]19.6 mg/mgNormalThe [facility] CenterComment on above:Performed By: #### CMP ####[facility] Srvqzqjotj[address] [place], [place] [address]Dr.Airam ChangOSMOLALITYon 21-43-0320Yvhktnyyxr [Osmolality]281 mosm/ycElzrgb253-463Goe [facility] Comment on above:Performed By: #### OSMO ####[facility] Hboavtxbko469[address] [place], [place] [address]Dr. Airam ChangCBC AUTO DIFFon 05-17-2022 BASO #0.1 103/ulNormal0.0-0.1The [facility] CenterComment on above:Performed By: #### CBC ####[facility] Uzwqbmgzyi6904[address] [place], [place] [address]Dr.Airam ChangBasophils/100 WBC (Bld)0.6 %Normal0.2-2.0The [facility] CenterComment on above:Performed By: #### CBC ####[facility] Xoqedkjydt1808[address] [place], [place] [address]Dr.Selenalan ChangEO #0.2 103/ul Normal0.0-0.7The [facility] CenterComment on above:Performed By: #### CBC ####[facility] Ufqoqimbef260[address] [place], [place] [address]Dr. Airam ChangEosinophils/100 WBC (Bld)1.9 %Normal0.9-7.0The [facility] Comment on above:Performed By: #### CBC ####[facility] Rxijnaoetr112[address] [place], [place] [address]Dr.Airam ChangErythrocyte distribution width (RBC) [Ratio]12.9 %Pwehfu48.0-15.0The [facility] CenterComment on above: Performed By: #### CBC ####[facility] Opcqixvmeh032[address] [place], [place] [address]Dr.Airam ChangHematocrit (Bld) [Volume fraction]32.1 % Critically low36.0-48.0The [facility] HospitalComment on above:Performed By: #### CBC ####[facility] Rqjmvwowfa194[address] [place], [place] [address]Dr. Airam TripathiHemoglobin (Bld) [Mass/Vol]9.9 g/dLCritically low12.0-16.0The [facility] HospitalComment on above:Performed By: #### CBC ####[facility] Myvwntpije9195[address] [place], [place] [address]Dr.Airam TripathiIG #0.05 10e3/ulCritically high0.00-0.03The [facility] HospitalComment on above:Performed By: #### CBC ####[facility] Kiweavczgu5415[address] [place], [place] [address]Dr.Airam TripathiIG %0.6 %Critically high0.0-0.5The [facility] HospitalComment on above:Performed By: #### CBC ####[facility] Rovvtioopo1967[address] [place], [place] [address]Dr.Airam TripathiLYMPH #1.3 103/ulNormal1.2-3.8The [facility] HospitalComment on above:Performed By: #### CBC ####[facility] Iwiuutqztz96[address] [place], [place] [address]Dr.Airam TripathiLymphocytes/100 WBC (Bld)15.2 %Critically low20.5-60.0The [facility] HospitalComment on above: Performed By: #### CBC ####[facility] Qevrznwurw9820[address] [place], [place] [address]Dr.Airam TripathiMANUAL DIFF REQNONormalThe [facility] HospitalComment on above:Performed By: #### CBC ####[facility] Mmfsdbjkdz1046[address] [place], [place] [address]Dr.Airam TripathiMEDISYS HEALTH NETWORK (RBC) [Entitic mass]30.0 phTgiwyq05.7-34.0The [facility] HospitalComment on above: Performed By: #### CBC ####[facility] Fvtwavbttz8165[address] [place], [place] [address]Dr.Airam TripathiMCHC (RBC) [Mass/Vol]30.8 g/dLNormal 29.9-35.2The [facility] CenterComment on above:Performed By: #### CBC ####[facility] Osvnbuasbm6830[address] [place], [place] [address]Dr. Airam TripathiMCV (RBC) [Entitic vol]97.3 mJGzmgdn27.0-99.0The [facility] Comment on above:Performed By: #### CBC ####[facility] Gcmvmkmclv137[address] [place], [place] [address]Dr.Airam TripathiMONO #0.5 103/ulNormal0.3-0.8 The [facility] CenterComment on above:Performed By: #### CBC ####[facility] Yxfcfgqrwa289[address] [place], [place] [address]Dr.Airam Tripathi Monocytes/100 WBC (Bld)5.4 %Normal1.7-12.0The [facility] CenterComment on above: Performed By: #### CBC ####[facility] Lcetwprqet6027[address] [place], [place] [address]Dr.Airam TripathiNEUT #6.5 103/ulNormal1.4-6.5The [facility] CenterComment on above:Performed By: #### CBC ####[facility] Btkxugmtuk0579[address] [place], [place] [address]Dr.Airam TripathiNeutrophils/100 WBC (Bld)76.3 %Critically high43.0-75.0The [facility] HospitalComment on above: Performed By: #### CBC ####[facility] Kwgvuwnian3456[address] [place], [place] [address]Dr.Airam TripathiPlatelet mean volume (Bld) [Entitic vol] 10.1 fLNormal9.5-13.5The [facility] CenterComment on above:Performed By: #### CBC ####[facility] Bjiicrfiaq5568[address] [place], [place] [address]Dr. Selenalan YebepOJF665 103/ocInekoo176-262Kke [facility] CenterComment on above: Performed By: #### CBC ####[facility] O[address]jlqtukv[address] [place] [address]Dr.Airam ChangRBC3.30 106/ulCritically low4.20-5.40The [facility] CenterComment on above:Performed By: #### CBC ####[facility] Bctpyvlexg[address] [place], [place] [address]Dr.Airam ChangWBC8.5 103/ul Normal4.0-11.0The [facility] CenterComment on above:Performed By: #### CBC ####[facility] Mtzyhfixzn101[address] [place], [place] [address]Dr. Selenalan ChangPROF 14(COMP METB)on 20-30-0837Lbxwlih [Mass/Vol]3.1 g/dLCritically low3.4-5.0The [facility] CenterComment on above:Performed By: #### CMP ####[facility] Oadafyyrga6734[address] [place], [place] [address]Dr. Airam ChangAlbumin/Globulin [Mass ratio]0.9 {ratio}NormalThe [facility] Comment on above:Performed By: #### CMP ####[facility] Nxfmxptwbc6256[address] [place], [place] [address]Dr.Selenalan ChangALP [Catalytic activity/Vol] 162 U/LCritically hzri14-417Hqk [facility] CenterComment on above:Performed By: #### CMP ####[facility] Mfstlqnxos[address] [place], [place] [address]Dr.Yilan ChangALT [Catalytic activity/Vol]22 U/CVbzhrx65-04Nhh [facility] CenterComment on above:Performed By: #### CMP ####[facility] Ltnxjphowl8[address] [place], [place] [address]Dr.Selenalan ChangAnion gap [Moles/Vol]9.4 mmol/LNormalThe [facility] CenterComment on above:Performed By: #### CMP ####[facility] Nhthsddzbv8514[address] [place], [place] [address]Dr.Yilan ChangAST [Catalytic activity/Vol]26 U/RTfjzlv11-53Uxl [facility] CenterComment on above:Performed By: #### CMP ####[facility] Udxjvjvvwa[address] [place] [address]Dr.Yilan ChangBilirubin [Mass/Vol]0.2 mg/dLNormal0.2-1.0The [facility] CenterComment on above:Performed By: #### CMP ####[facility] Uabifchtip2550[address] [place], [place] [address]Dr.Yilan ChangCalcium [Mass/Vol]8.2 mg/dLCritically low8.5-10.1The [facility] CenterComment on above:Performed By: #### CMP ####[facility] Zhqbeepsdc7247[address] [place], [place] [address]Dr.Yilan ChangChloride [Moles/Vol]103 mmol/USmhxqt26-190Lbs [facility] CenterComtr[facility] on above:Performed By: #### CMP ####[facility] Zmfqpkkhrh7634[address] [place], [place] [address]Dr.Yilan ChangCO2 [Moles/Vol]24.8 mmol/NQzbott44.0-32.0The [facility] CenterComment on above:Performed By: #### CMP ####[facility] Xnbgiqqwbc3675[address] [place], [place] [address]Dr.Yilan ChangCreatinine [Mass/Vol]1.19 mg/dLCritically high0.55-1.02The [facility] CenterComtr[facility] on above:Performed By: #### CMP ####[facility] Ovzdoqihus[address] [place], [place] [address]Dr.Yilan ChangEGFR-AF EUVGEZQK61 mL/min/1.73m2 Critically low>=60The [facility] CenterComment on above:Performed By: #### CMP ####[facility] Cmbazleuxk3965[address] [place], [place] [address]Dr. Yilan ChangEGFR-NON AF PFKNUAJC96 mL/min/1.34z9Wqrbjvgquv low>=60The [facility] on above:Performed By: #### CMP ####[facility] Yjocnxhdts4654[address] [place], [place] [address]Dr.Yilan ChangGlobulin (S) [Mass/Vol]3.6 g/dLNormalThe [facility] CenterComment on above:Performed By: #### CMP ####[facility] [address]msyvjrwjd[address] [place] [address]Dr.Airam ChangGlucose [Mass/Vol]75 mg/zLNagioi12-493YliHocking Valley Community Hospital Comment on above:Performed By: #### CMP ####[facility] Tuydarcrkj43[address] [place] [address]Dr.Airam ChangPotassium [Moles/Vol]5.2 mmol/LCritically high3.5-5.1The [facility] CenterComment on above:Performed By: #### CMP ####[facility] Hojkvmvqzn5037[address] [place], [place] [address]Dr.Yilan ChangProtein [Mass/Vol]6.7 g/dLNormal6.4-8.2The [facility] Comment on above:Performed By: #### CMP ####[facility] Kdkyhiswod9[address] [place], [place] [address]Dr.Selenalan ChangSodium [Moles/Vol]132 mmol/L Critically rjr239-795Mrn [facility] CenterComment on above:Performed By: #### CMP ####[facility] Utkhazavoz[address] [place], [place] [address]Dr. Airam ChangUrea nitrogen [Mass/Vol]28.0 mg/dLCritically high7.0-18.0The [facility] CenterComment on above:Performed By: #### CMP ####[facility] Hifnfyioks9064[address] [place], [place] [address]Dr.Selenalan ChangUrea nitrogen/Creatinine [Mass ratio]23.5 mg/mgNormalThe [facility] CenterComment on above:Performed By: #### CMP ####[facility] Ousbqbccao[address] [place], [place] [address]Dr.Airam ChangOSMOLALITYon 49-43-7587Wtvegvfybw [Osmolality]281 mosm/fdUcdnhs923-427Hll [facility] CenterComment on above: Performed By: #### OSMO ####[facility] Ymglaoubwl8[address] [place], [place] [address]Dr. Airam TripathiCBC AUTO DIFFon 02-71-1660PRUV #0.1 103/ulNormal0.0-0.1The [facility] CenterComment on above:Performed By: #### CBC ####[facility] [address]kqdiyrmnf[address] [place], [place] [address]Dr. Yilan ChangBasophils/100 WBC (Bld)0.5 %Normal0.2-2.0The [facility] CenterComment on above:Performed By: #### CBC ####[facility] Jbccijidah74[address] [place], [place] [address]Dr.Yilan ChangEO #0.2 103/ulNormal0.0-0.7The [facility] CenterComment on above:Performed By: #### CBC ####[facility] Ptvtetrayq3090[address] [place], [place] [address]Dr.Yilan ChangEosinophils/100 WBC (Bld)2.1 %Normal0.9-7.0The [facility] CenterComment on above:Performed By: #### CBC ####[facility] Hquvfrcmpf9127[address] [place], [place] [address]Dr.Yilan ChangErythrocyte distribution width (RBC) [Ratio]12.9 %Normal 11.0-15.0The [facility] CenterComment on above:Performed By: #### CBC ####[facility] Rzynwacsfq6812[address] [place], [place] [address]Dr. Yilan ChangHematocrit (Bld) [Volume fraction]31.9 %Critically low36.0-48.0The [facility] CenterComment on above:Performed By: #### CBC ####[facility] Ecjgjvifgq98[address] [place], [place] [address]Dr.Yilan ChangHemoglobin (Bld) [Mass/Vol]9.7 g/dLCritically low12.0-16.0The [facility] CenterComment on above:Performed By: #### CBC ####[facility] Bbzriafvgg6214[address] [place], [place] [address]Dr.Yilan ChangIG #0.06 10e3/ulCritically high0.00-0.03 The [facility] CenterComment on above:Performed By: #### CBC ####[facility] Cyszsooxju[address] [place] [address]Dr.Airam TripathiIG % 0.7 %Critically high0.0-0.5The [facility] CenterComment on above:Performed By: #### CBC ####[facility] Wbmdidihcl6549[address] [place], [place] [address]Dr.Airam TripathiLYMPH #1.9 103/ulNormal1.2-3.8The [facility] CenterComment on above:Performed By: #### CBC ####[facility] Imzovuiflu7455[address] [place], [place] [address]Dr.Airam TripathiLymphocytes/100 WBC (Bld)21.1 %Normal 20.5-60.0The [facility] CenterComment on above:Performed By: #### CBC ####[facility] Tniqjraark0838[address] [place], [place] [address]Dr. Airam TripathiMANUAL DIFF REQNONormalThe [facility] CenterComment on above: Performed By: #### CBC ####[facility] Itxojgphmi3917[address] [place], [place] [address]Dr.Airam TripathiMCH (RBC) [Entitic mass]29.7 pgNormal 26.7-34.0The [facility] CenterComment on above:Performed By: #### CBC ####[facility] Amruxozzut899[address] [place], [place] [address]Dr. Airam TripathiMCHC (RBC) [Mass/Vol]30.4 g/oLWvweza23.9-35.2The [facility] Comment on above:Performed By: #### CBC ####[facility] Aktezumneo6637[address] [place], [place] [address]Dr.Airam TripathiMCV (RBC) [Entitic vol]97.6 fL Iaopuf85.0-99.0The [facility] CenterComment on above:Performed By: #### CBC ####[facility] Tspdzirlou3998[address] [place], [place] [address]Dr. Airam TripathiMONO #0.6 103/ulNormal0.3-0.8The [facility] CenterComment on above: Performed By: #### CBC ####[facility] Esczelvbkh[address] [place] [address]Dr.Selenalan ChangMonocytes/100 WBC (Bld)6.8 %Normal 1.7-12.0The [facility] CenterComment on above:Performed By: #### CBC ####[facility] Iaypcedoue[address] [place] [address]Dr. Selenalan ChangNEUT #6.3 103/ulNormal1.4-6.5The [facility] CenterComment on above: Performed By: #### CBC ####[facility] Glbywisjbu45[address] [place] [address]Dr.Selenalan ChangNeutrophils/100 WBC (Bld)68.8 %Normal 43.0-75.0The [facility] CenterComment on above:Performed By: #### CBC ####[facility] Cedlzdxhca1514[address] [place], [place] [address]Dr. Airam TripathiPlatelet mean volume (Bld) [Entitic vol]9.6 fLNormal9.5-13.5The [facility] CenterComment on above:Performed By: #### CBC ####[facility] Ryatmaqpit1054[address] [place], [place] [address]Dr.Airam DerzfKUJ346 103/ul Snjsnp954-262Zzg [facility] CenterComment on above:Performed By: #### CBC ####[facility] Pfwiqkradh9[address] [place] [address]Dr. Airam ChangRBC3.27 106/ulCritically low4.20-5.40The [facility] CenterComtr[facility] on above:Performed By: #### CBC ####[facility] Krxcnlmdyi[address] [place], [place] [address]Dr.Airam ChangWBC9.1 103/ulNormal4.0-11.0The [facility] CenterComtr[facility] on above:Performed By: #### CBC ####[facility] Khggrwprug[address] [place], [place] [address]Dr.Selenalan ChangPROF 14(COMP METB)on 81-84-5255Ovxfnch [Mass/Vol]3.3 g/dLCritically low3.4-5.0The [facility] CenterComment on above:Performed By: #### CMP ####[facility] Uronfhietk[address] [place] [address]Dr.Airam Tripathi Albumin/Globulin [Mass ratio]1.0 {ratio}NormalThe [facility] CenterComment on above:Performed By: #### CMP ####[facility] Jdgtkdorks[address] [place], [place] [address]Dr.Selenaneil DeuceALP [Catalytic activity/Vol]152 U/L Critically czmr90-423Tow [facility] CenterComment on above:Performed By: #### CMP ####[facility] Hxiicfqiva2059[address] [place], [place] [address]Dr. Airam DeuceALT [Catalytic activity/Vol]23 U/BOlrlub72-55Zxk [facility] Comment on above:Performed By: #### CMP ####[facility] Dhbeoqtqvk2177[address] [place], [place] [address]Dr.Airam DeuceAnion gap [Moles/Vol]12.0 mmol/LNormalThe [facility] CenterComment on above:Performed By: #### CMP ####[facility] Anegyccbld7074[address] [place], [place] [address]Dr. Airam ChangAST [Catalytic activity/Vol]25 U/UIsdvxs75-55Gra [facility] Comment on above:Performed By: #### CMP ####[facility] Aptitmdvel9[address] [place], [place] [address]Dr.Airam ChangBilirubin [Mass/Vol]0.2 mg/dL Normal0.2-1.0The [facility] CenterComment on above:Performed By: #### CMP ####[facility] Nopqbvydft7967[address] [place], [place] [address]Dr. Airam ChangCalcium [Mass/Vol]8.2 mg/dLCritically low8.5-10.1The [facility] CenterComment on above:Performed By: #### CMP ####[facility] Dovfrecevf5564[address] [place], [place] [address]Dr.Airam ChangChloride [Moles/Vol]100 mmol/USyxizb20-989Ocw [facility] CenterComment on above:Performed By: #### CMP ####[facility] Wxhpuhkwum0035[address] [place], [place] [address]Dr.Yilan ChangCO2 [Moles/Vol]24.8 mmol/GYncauc92.0-32.0The [facility] CenterComment on above:Performed By: #### CMP ####[facility] Hlhyubremi475[address] [place], [place] [address]Dr.Yilan ChangCreatinine [Mass/Vol]1.46 mg/dLCritically high0.55-1.02The [facility] CenterComment on above:Performed By: #### CMP ####[facility] Yhhutftqpp5450[address] [place], [place] [address]Dr.Yilan ChangEGFR-AF PSFKSUKF64 mL/min/1.73m2 Critically low>=60The [facility] CenterComment on above:Performed By: #### CMP ####[facility] Pxenscuhev9505[address] [place], [place] [address]Dr. Yilan ChangEGFR-NON AF ISNFQWJL60 mL/min/1.41e9Xbppuumwjr low>=60The [facility] CenterComment on above:Performed By: #### CMP ####[facility] Kskyzrhkxa2667[address] [place], [place] [address]Dr.Yilan ChangGlobulin (S) [Mass/Vol]3.3 g/dLNormalThe [facility] CenterComment on above:Performed By: #### CMP ####[facility] Ssfaicbwew[address] [place], [place] [address]Dr.Yilan ChangGlucose [Mass/Vol]86 mg/zNZqkxsg27-364Pzr [facility] Comment on above:Performed By: #### CMP ####[facility] Nksqdlaayy[address] [place], [place] [address]Dr.Yilan ChangPotassium [Moles/Vol]4.8 mmol/LNormal3.5-5.1The [facility] CenterComment on above:Performed By: #### CMP ####[facility] Qihnwujqwt966[address] [place], [place] [address]Dr. Yilan ChangProtein [Mass/Vol]6.6 g/dLNormal6.4-8.2The [facility] CenterComment on above:Performed By: #### CMP ####[facility] Ylrrozatnr8958[address] [place], [place] [address]Dr.Airam ChangSodium [Moles/Vol]132 mmol/LCritically wjy953-270Kel [facility] CenterComment on above:Performed By: #### CMP ####[facility] Gswqgzraco2613[address] [place], [place] [address]Dr. Airam ChangUrea nitrogen [Mass/Vol]34.0 mg/dLCritically high7.0-18.0The [facility] CenterComment on above:Performed By: #### CMP ####[facility] Vpakqmkfmc747[address] [place], [place] [address]Dr.Airam ChangUrea nitrogen/Creatinine [Mass ratio]23.3 mg/mgNoGlenbeigh HospitalComment on above:Performed By: #### CMP ####[facility] Qusrsddhij0746[address] [place], [place] [address]Dr.Airam ChangOSMOLALITYon 54-94-3441Nfjymlymxp [Osmolality]284 mosm/pfGseodm050-296Cfn [facility] CenterComment on above: Performed By: #### OSMO ####[facility] Ihvaokjgqy237[address] [place], [place] [address]Dr. Airam ChangXR LSPINE MIN 4 VIEWSon 21-26-5512FC LSPINE MIN 4 VIEWSNormWhite HospitalCB AUTO DIFFon 51-72-3197WGOW #0.1 103/ulNormal0.0-0.1[facility] HospitalComtr[facility] on above:Performed By: #### CBC ####[facility] Ghmnohegnl6696[address] [place], [place] [address]Dr. Airam ChangBasophils/100 WBC (Bld)0.6 %Normal0.2-2.0[facility] HospitalComment on above:Performed By: #### CBC ####[facility] Qznjfiyivm0816[address] [place], [place] [address]Dr.Yilan ChangEO #0.3 103/ulNormal0.0-0.7The [facility] HospitalComment on above:Performed By: #### CBC ####[facility] Qwhoskiwjp0767[address] [place], [place] [address]Dr.Yilan ChangEosinophils/100 WBC (Bld)4.2 %Normal0.9-7.0The [facility] HospitalComment on above:Performed By: #### CBC ####[facility] Rqqdyidebm4037[address] [place], [place] [address]Dr.Yilan ChangErythrocyte distribution width (RBC) [Ratio]13.4 %Normal 11.0-15.0The [facility] HospitalComment on above:Performed By: #### CBC ####[facility] Lhwulrizqe2347[address] [place], [place] [address]Dr. Yilan ChangHematocrit (Bld) [Volume fraction]30.7 %Critically low36.0-48.0The [facility] HospitalComment on above:Performed By: #### CBC ####[facility] Bzmawxpbdn5529[address] [place], [place] [address]Dr.Selenalan ChangHemoglobin (Bld) [Mass/Vol]9.6 g/dLCritically low12.0-16.0The [facility] CenterComment on above:Performed By: #### CBC ####[facility] Hfydsogsrw1327[address] [place], [place] [address]Dr.Yilan ChangIG #0.05 10e3/ulCritically high0.00-0.03 The [facility] CenterComment on above:Performed By: #### CBC ####[facility] Lgixekchma38[address] [place], [place] [address]Dr.Yilan ChangIG % 0.6 %Critically high0.0-0.5The [facility] HospitalComment on above:Performed By: #### CBC ####[facility] Fngvvenqkr5236[address] [place], [place] [address]Dr.Yilan ChangLYMPH #1.9 103/ulNormal1.2-3.8The [facility] CenterComment on above:Performed By: #### CBC ####[facility] [address]zvcizcft[address] [place] [address]Dr.Airam TripathiLymphocytes/100 WBC (Bld)23.5 %Normal 20.5-60.0The [facility] CenterComment on above:Performed By: #### CBC ####[facility] Jczpfoftbx2616[address] [place], [place] [address]Dr. Airam TripathiMANUAL DIFF REQNONormalThe [facility] CenterComment on above: Performed By: #### CBC ####[facility] Cgrjafhpxl7312[address] [place], [place] [address]Dr.Airam TripathiH (RBC) [Entitic mass]30.8 pgNormal 26.7-34.0The [facility] CenterComment on above:Performed By: #### CBC ####[facility] Xavbnhmmet5890[address] [place], [place] [address]Dr. Airam TripathiHC (RBC) [Mass/Vol]31.3 g/nRCivgoi10.9-35.2The [facility] Comment on above:Performed By: #### CBC ####[facility] Fwoydcgxlu5007[address] [place], [place] [address]Dr.Airam TripathiMCV (RBC) [Entitic vol]98.4 fL Bisizs08.0-99.0The [facility] CenterComment on above:Performed By: #### CBC ####[facility] Uuqyurafxk567[address] [place], [place] [address]Dr. Airam TripathiMONO #0.6 103/ulNormal0.3-0.8The [facility] CenterComment on above: Performed By: #### CBC ####[facility] Uadwurufdk2896[address] [place], [place] [address]Dr.Airam ChangMonocytes/100 WBC (Bld)7.4 %Normal 1.7-12.0The [facility] CenterComment on above:Performed By: #### CBC ####[facility] Gawxzzcpwm9813[address] [place], [place] [address]Dr. Airam TripathiNEUT #5.0 103/ulNormal1.4-6.5The [facility] CenterComment on above: Performed By: #### CBC ####[facility] Dmxhhxdrxu[address] [place] [address]Dr.Airam TripathiNeutrophils/100 WBC (Bld)63.7 %Normal 43.0-75.0The [facility] Hospitalment on above:Performed By: #### CBC ####[facility] Niupipotda9[address] [place] [address]Dr. Airam TripathiPlatelet mean volume (Bld) [Entitic vol]9.5 fLNormal9.5-13.5The [facility] CenterComment on above:Performed By: #### CBC ####[facility] Owrurlfyqg8799[address] [place], [place] [address]Dr.Airam TripathiPLT280 103/ul Jhntot258-793Dzm [facility] CenterComment on above:Performed By: #### CBC ####[facility] Pblkohfqbt4189[address] [place], [place] [address]Dr. Selenaneil DeuceRBC3.12 106/ulCritically low4.20-5.40The [facility] CenterComment on above:Performed By: #### CBC ####[facility] Yrkcigkhly462[address] [place], [place] [address]Dr.Airam TripathiWBC7.9 103/ulNormal4.0-11.0The [facility] on above:Performed By: #### CBC ####[facility] Gvjrpptprk[address] [place], [place] [address]Dr.Selenaneil TripathiPROF 14(COMP METB)on 62-03-1583Ksklpcb [Mass/Vol]3.1 g/dLCritically low3.4-5.0The [facility] CenterComment on above:Performed By: #### CMP ####[facility] Qgraltnjpp3059[address] [place], [place] [address]Dr.Selenaneil Tripathi Albumin/Globulin [Mass ratio]0.9 {ratio}NormalThe [facility] on above:Performed By: #### CMP ####[facility] Csudoxptdg8184[address] [place], [place] [address]Dr.Airam TripathiALP [Catalytic activity/Vol]140 U/L Critically lomb84-158Yfq Sophie HospitalComment on above:Performed By: #### CMP ####[facility] Nvydntvxre8[address] [place] [id number]. Yilan ChangALT [Catalytic activity/Vol]24 U/HFcgxlb82-93Qhj [facility] Comment on above:Performed By: #### CMP ####[facility] Didjancylw[address] [place] [id number].Yilan ChangAnion gap [Moles/Vol]11.2 mmol/LNormalThe [facility] CenterComment on above:Performed By: #### CMP ####[facility] Tqeitkodpo[address] [place] [address]Dr. Yilan ChangAST [Catalytic activity/Vol]26 U/TSvesse86-99Opb [facility] Comment on above:Performed By: #### CMP ####[facility] Czhfmefpec42[address] [place] [address]Dr.Yilan ChangBilirubin [Mass/Vol]0.2 mg/dL Normal0.2-1.0The [facility] CenterComment on above:Performed By: #### CMP ####[facility] Leltlgnhea7247[address] [place], [place] [address]Dr. Yilan ChangCalcium [Mass/Vol]8.3 mg/dLCritically low8.5-10.1The [facility] CenterComment on above:Performed By: #### CMP ####[facility] Axsoxhzdad26[address] [place] [address]Dr.Yilan ChangChloride [Moles/Vol]101 mmol/RBnhuud39-886Cfe [facility] CenterComment on above:Performed By: #### CMP ####[facility] Hfwuramjnv4093 [place] [address]Dr.Yilan ChangCO2 [Moles/Vol]25.5 mmol/GMaajig29.0-32.0The [facility] CenterComment on above:Performed By: #### CMP ####[facility] Nhxlqhtbsq5674 [place] [address]Dr.Yilan ChangCreatinine [Mass/Vol]1.43 mg/dLCritically high0.55-1.02The [facility] CenterComment on above:Performed By: #### CMP ####[facility] Kmmjpyinna26[address] [place] [address]Dr.Yilan ChangEGFR-AF RRWRGKYA28 mL/min/1.73m2 Critically low>=60The [facility] CenterComment on above:Performed By: #### CMP ####[facility] Anchhgueir23[address] [place] [address]Dr. Yilan ChangEGFR-NON AF BFRELHEC66 mL/min/1.16l3Kcxfsnfnvu low>=60The [facility] CenterComment on above:Performed By: #### CMP ####[facility] Goyamrkgyt1409[address] [place], [place] [address]Dr.Yilan ChangGlobulin (S) [Mass/Vol]3.3 g/dLNormalThe [facility] CenterComment on above:Performed By: #### CMP ####[facility] Tqipzpscnv7309[address] [place], [place] [address]Dr.Yilan ChangGlucose [Mass/Vol]74 mg/cDTtptry69-676Ipe [facility] Comment on above:Performed By: #### CMP ####[facility] Vdqvonooal3696[address] [place], [place] [address]Dr.Yilan ChangPotassium [Moles/Vol]4.7 mmol/LNormal3.5-5.1The [facility] CenterComment on above:Performed By: #### CMP ####[facility] Sdvedjucun[address] [place], [place] [address]Dr. Yilan ChangProtein [Mass/Vol]6.4 g/dLNormal6.4-8.2The [facility] CenterComment on above:Performed By: #### CMP ####[facility] Wmchhrwrrb33[address] [place], [place] [address]Dr.Yilan ChangSodium [Moles/Vol]133 mmol/LCritically erq610-519Owv [facility] CenterComment on above:Performed By: #### CMP ####[facility] Qtrfangplb2498[address] [place], [place] [address]Dr. Yilan ChangUrea nitrogen [Mass/Vol]38.0 mg/dLCritically high7.0-18.0The [facility] CenterComment on above:Performed By: #### CMP ####[facility] Qkidrwxksn9324[address] [place], [place] [address]Dr.Selenalan ChangUrea nitrogen/Creatinine [Mass ratio]26.6 mg/mgNormalThOhioHealth Shelby HospitalComment on above:Performed By: #### CMP ####[facility] Nbxzqzxzyy703[address] [place], [place] [address]Dr.Selenaneil ChangOSMOLALITYon 19-98-1200Ncxlyroarh [Osmolality]292 mosm/llGojzgj921-736Ycu [facility] CenterComment on above: Performed By: #### OSMO ####[facility] Vzvmfneubs176[address] [place], [place] [address]Dr. Selenaneil ChangCBC AUTO DIFFon 69-61-6834WYFV #0.0 103/ulNormal0.0-0.1The [facility] CenterComtrinity [facility] on above:Performed By: #### CBC ####[facility] Loqunudvnh229[address] [place], [place] [address]Dr. Yilan ChangBasophils/100 WBC (Bld)0.5 %Normal0.2-2.0The [facility] on above:Performed By: #### CBC ####[facility] Fextnvkycc8055[address] [place], [place] [address]Dr.Yilan ChangEO #0.2 103/ulNormal0.0-0.7The [facility] CenterComtrinity [facility] on above:Performed By: #### CBC ####[facility] Xlwmiqzgty6815[address] [place], [place] [address]Dr.Selenalan ChangEosinophils/100 WBC (Bld)3.4 %Normal0.9-7.0The [facility] CenterComment on above:Performed By: #### CBC ####[facility] Cqmebpkkeo2038[address] [place], [place] [address]Dr.Selenalan ChangErythrocyte distribution width (RBC) [Ratio]13.4 %Normal 11.0-15.0The [facility] CenterComment on above:Performed By: #### CBC ####[facility] Gfmricufqc6[address] [place] [address]Dr. Airam TripathiHematocrit (Bld) [Volume fraction]31.6 %Critically low36.0-48.0The [facility] CenterComment on above:Performed By: #### CBC ####[facility] Tjgaadjhrj22[address] [place] [address]Dr.Airam TripathiHemoglobin (Bld) [Mass/Vol]9.8 g/dLCritically low12.0-16.0The [facility] HospitalComment on above:Performed By: #### CBC ####[facility] Arihffcebo7318[address] [place], [place] [address]Dr.Selenalan ChangIG #0.02 10e3/ulNormal0.00-0.03The [facility] CenterComment on above:Performed By: #### CBC ####[facility] Uhcxtzraov1112[address] [place], [place] [address]Dr.Airam ChangIG %0.3 %Normal 0.0-0.5The [facility] CenterComment on above:Performed By: #### CBC ####[facility] Ybvbycjcnn7217[address] [place], [place] [address]Dr.Airam TripathiLYMPH #1.3 103/ulNormal1.2-3.8The [facility] CenterComment on above:Performed By: #### CBC ####[facility] Fouswlreeg0839[address] [place], [place] [address]Dr.Airam TripathiLymphocytes/100 WBC (Bld)21.7 %Ekfwmx58.5-60.0The [facility] CenterComment on above:Performed By: #### CBC ####[facility] Rnnzyqqwob5806[address] [place], [place] [address]Dr.Selenaneil TripathiMANUAL DIFF REQ NONormalThe [facility] CenterComment on above:Performed By: #### CBC ####[facility] Kieefsuggl8411[address] [place], [place] [address]Dr. Airam TripathiMCH (RBC) [Entitic mass]30.7 coIxcnqm06.7-34.0The [facility] Comment on above:Performed By: #### CBC ####[facility] Kznomirark[address] [place] [address]Dr.Airam BrookeHC (RBC) [Mass/Vol]31.0 g/dL Nbtkcg52.9-35.2The [facility] CenterComment on above:Performed By: #### CBC ####[facility] Mgdrldafwf1897[address] [place], [place] [address]Dr. Airam TripathiMCV (RBC) [Entitic vol]99.1 fLCritically high81.0-99.0The [facility] CenterComment on above:Performed By: #### CBC ####[facility] Zokakoqgtr5109[address] [place], [place] [address]Dr.Airam TripathiMONO #0.3 103/ulNormal0.3-0.8The [facility] CenterComment on above:Performed By: #### CBC ####[facility] Ktoxwwpjwo8594[address] [place], [place] [address]Dr. Airam TripathiMonocytes/100 WBC (Bld)5.2 %Normal1.7-12.0The [facility] Comment on above:Performed By: #### CBC ####[facility] Xlgyfyacwk5408[address] [place], [place] [address]Dr.Airam TripathiNEUT #4.1 103/ulNormal1.4-6.5 The [facility] CenterComment on above:Performed By: #### CBC ####[facility] Tedlkltdcn5737[address] [place], [place] [address]Dr.Airam Tripathi Neutrophils/100 WBC (Bld)68.9 %Omtkvq53.0-75.0The [facility] CenterComment on above:Performed By: #### CBC ####[facility] Smsqhyhrjg7874[address] [place], [place] [address]Dr.Airam TripathiPlatelet mean volume (Bld) [Entitic vol] 9.8 fLNormal9.5-13.5The [facility] CenterComment on above:Performed By: #### CBC ####[facility] Cxmfdydwuw1058[address] [place], [place] [address]Dr. Yilan QosxyIYF230 103/tfSzyojb422-652Vtm [facility] CenterComment on above: Performed By: #### CBC ####[facility] Clojvbiwcm8[address] [place] [address]Dr.Yineil ChangRBC3.19 106/ulCritically low4.20-5.40The [facility] CenterComment on above:Performed By: #### CBC ####[facility] Ycffkrnfsw33[address] [place], [place] [address]Dr.Yineil ChangWBC5.9 103/ul Normal4.0-11.0The [facility] CenterComment on above:Performed By: #### CBC ####[facility] Lxydzrdrzu[address] [place], [place] [address]Dr. Selenalan ChangPROF 14(COMP METB)on 10-05-8880Aujkszw [Mass/Vol]2.9 g/dLCritically low3.4-5.0The [facility] CenterComment on above:Performed By: #### CMP ####[facility] Sygwxsbsah[address] [place], [place] [address]Dr. Airam ChangAlbumin/Globulin [Mass ratio]0.9 {ratio}NormalThe [facility] Comment on above:Performed By: #### CMP ####[facility] Tcacgrbzwz5[address] [place], [place] [address]Dr.Airam ChangALP [Catalytic activity/Vol] 127 U/LCritically whpi51-636Dfd [facility] CenterComment on above:Performed By: #### CMP ####[facility] Eilfyxxgpr[address] [place], [place] [address]Dr.Airam ChangALT [Catalytic activity/Vol]22 U/PQmxreg17-56Wqg [facility] CenterComment on above:Performed By: #### CMP ####[facility] Nzgzswrihs[address] [place], [place] [address]Dr.Airam TripathiAnion gap [Moles/Vol]6.7 mmol/LNormalThe [facility] CenterComment on above:Performed By: #### CMP ####[facility] Aeowszqhoa99[address] [place], [place] [address]Dr.Yilan ChangAST [Catalytic activity/Vol]24 U/QXrgqui61-35Zto [facility] CenterComment on above:Performed By: #### CMP ####[facility] Ednhpzkcrh[address] [place], [place] [address]Dr.Yilan ChangBilirubin [Mass/Vol]0.2 mg/dLNormal0.2-1.0The [facility] CenterComment on above:Performed By: #### CMP ####[facility] Dgbpylpbam63[address] [place], [place] [address]Dr.Yilan ChangCalcium [Mass/Vol]8.2 mg/dLCritically low8.5-10.1The [facility] CenterComment on above:Performed By: #### CMP ####[facility] Ygpdxpyyta9709[address] [place], [place] [address]Dr.Yilan ChangChloride [Moles/Vol]105 mmol/HFeczkm21-362Qna [facility] CenterComment on above:Performed By: #### CMP ####[facility] Smxrshsnhh3534[address] [place], [place] [address]Dr.Yilan ChangCO2 [Moles/Vol]28.2 mmol/CLmgbdi88.0-32.0The [facility] CenterComment on above:Performed By: #### CMP ####[facility] Drjtvfvafc5830[address] [place], [place] [address]Dr.Yilan ChangCreatinine [Mass/Vol]1.22 mg/dLCritically high0.55-1.02The [facility] CenterComment on above:Performed By: #### CMP ####[facility] Zamkngsnin3422[address] [place], [place] [address]Dr.Yilan ChangEGFR-AF FLTVFJOZ26 mL/min/1.73m2 Critically low>=60The [facility] CenterComment on above:Performed By: #### CMP ####[facility] Frfgwrwwcw478[address] [place], [place] [address]Dr. Yilan ChangEGFR-NON AF EQDPLHRY85 mL/min/1.93c5Uwjccgistr low>=60The [facility] CenterComment on above:Performed By: #### CMP ####[facility] Nveozczfqf0318[address] [place], [place] [address]Dr.Yilan ChangGlobulin (S) [Mass/Vol]3.2 g/dLNoGlenbeigh HospitalComment on above:Performed By: #### CMP ####[facility] Ggiblwyaoq[address] [place], [place] [address]Dr.Selenalan ChangGlucose [Mass/Vol]77 mg/rWUvzlrz20-002Oor [facility] Comment on above:Performed By: #### CMP ####[facility] Iqwzwpcngz350[address] [place], [place] [address]Dr.Selenalan ChangPotassium [Moles/Vol]4.9 mmol/LNormal3.5-5.1The [facility] CenterComment on above:Performed By: #### CMP ####[facility] Biildyzytf040[address] [place], [place] [address]Dr. Selenalan ChangProtein [Mass/Vol]6.1 g/dLCritically low6.4-8.2The [facility] Comment on above:Performed By: #### CMP ####[facility] Oojdnzazlz8136[address] [place], [place] [address]Dr.Selenalan ChangSodium [Moles/Vol]135 mmol/L Critically ahh609-824Pdl [facility] CenterComment on above:Performed By: #### CMP ####[facility] Ozivrlsghg8760[address] [place], [place] [address]Dr. Selenalan ChangUrea nitrogen [Mass/Vol]30.0 mg/dLCritically high7.0-18.0The [facility] CenterComment on above:Performed By: #### CMP ####[facility] Czbqyndabn9338[address] [place], [place] [address]Dr.Selenalan ChangUrea nitrogen/Creatinine [Mass ratio]24.6 mg/mgNoGlenbeigh HospitalComment on above:Performed By: #### CMP ####[facility] Rkdjwzbgew1509[address] [place], [place] [address]Dr.Selenalan ChangOSMOLALITYon 88-28-4403Vzokundqkr [Osmolality]289 mosm/rmEynour038-852Xpn [facility] CenterComment on above: Performed By: #### OSMO ####[facility] [address]omyhoakq[address] [place] [address]Dr. Airam TripathiCBC AUTO DIFFon 10-09-3444MNTB #0.0 103/ulNormal0.0-0.1The [facility] CenterComment on above:Performed By: #### CBC ####[facility] Jqcmamzefu828[address] [place], [place] [address]Dr. Airam ChangBasophils/100 WBC (Bld)0.4 %Normal0.2-2.0The [facility] CenterComment on above:Performed By: #### CBC ####[facility] Vgurksvejk8612[address] [place], [place] [address]Dr.Selenalan ChangEO #0.2 103/ulNormal0.0-0.7The [facility] CenterComment on above:Performed By: #### CBC ####[facility] Ugsnjsrosv420[address] [place], [place] [address]Dr.Airam ChangEosinophils/100 WBC (Bld)3.1 %Normal0.9-7.0The [facility] CenterComment on above:Performed By: #### CBC ####[facility] Ftlailknpl9512[address] [place], [place] [address]Dr.Airam ChangErythrocyte distribution width (RBC) [Ratio]13.8 %Normal 11.0-15.0The [facility] CenterComment on above:Performed By: #### CBC ####[facility] Knxiqzjlmu3785[address] [place], [place] [address]Dr. Airam ChangHematocrit (Bld) [Volume fraction]29.5 %Critically low36.0-48.0The [facility] CenterComment on above:Performed By: #### CBC ####[facility] Gpojdzhaxp1686[address] [place], [place] [address]Dr.Airam ChangHemoglobin (Bld) [Mass/Vol]9.2 g/dLCritically low12.0-16.0The [facility] CenterComment on above:Performed By: #### CBC ####[facility] Nlfxtlumnw6934[address] [place], [place] [address]Dr.Airam ChangIG #0.02 10e3/ulNormal0.00-0.03The [facility] CenterComment on above:Performed By: #### CBC ####[facility] Fqpxeawtkc60[address] [place] [address]Dr.Airam TripathiIG %0.4 %Normal 0.0-0.5The [facility] HospitalComment on above:Performed By: #### CBC ####[facility] Wktpqasvpy010[address] [place], [place] [address]Dr.Airam TripathiLYMPH #0.8 103/ulCritically low1.2-3.8The [facility] CenterComment on above:Performed By: #### CBC ####[facility] Cpkesgktxf2705[address] [place], [place] [address]Dr.Airam Dossmphocytes/100 WBC (Bld)14.0 %Critically low20.5-60.0 The [facility] CenterComment on above:Performed By: #### CBC ####[facility] Batsxedmcr6458[address] [place], [place] [address]Dr.Airam TripathiMANUAL DIFF REQNONormalThe [facility] CenterComment on above:Performed By: #### CBC ####[facility] Kgyzswolbt619[address] [place], [place] [address]Dr. Selenaneil TripathiMEDISYS HEALTH NETWORK (RBC) [Entitic mass]30.4 dfTlrdcg53.7-34.0[facility] Comment on above:Performed By: #### CBC ####[facility] Ggeficopze3188[address] [place], [place] [address]Dr.Airam DeuceST. PETER'S [facility] (RBC) [Mass/Vol]31.2 g/dL Oirihf15.9-35.2The [facility] CenterComment on above:Performed By: #### CBC ####[facility] Zvjcxdgpwp1225[address] [place], [place] [address]Dr. Airam DeuceV (RBC) [Entitic vol]97.4 iFYirrlk53.0-99.0[facility] Comment on above:Performed By: #### CBC ####[facility] Rczvempueq3348[address] [place], [place] [address]Dr.Airam TripathiMONO #0.3 103/ulNormal0.3-0.8 The [facility] CenterComment on above:Performed By: #### CBC ####[facility] Wtkjyllryf84[address] [place] [address]Dr.Airam Tripathi Monocytes/100 WBC (Bld)5.6 %Normal1.7-12.0The [facility] CenterComment on above: Performed By: #### CBC ####[facility] Bqnzboirno2296[address] [place], [place] [address]Dr.Airam TripathiNEUT #4.2 103/ulNormal1.4-6.5The [facility] CenterComment on above:Performed By: #### CBC ####[facility] Ojewvjfswa127[address] [place], [place] [address]Dr.Airam TripathiNeutrophils/100 WBC (Bld)76.5 %Critically high43.0-75.0The [facility] CenterComment on above: Performed By: #### CBC ####[facility] Crexaegktu1534[address] [place], [place] [address]Dr.Airam TripathiPlatelet mean volume (Bld) [Entitic vol] 9.4 fLCritically low9.5-13.5The [facility] CenterComment on above:Performed By: #### CBC ####[facility] Zmaymdkdde699[address] [place], [place] [address]Dr.Selenalan PnortAZE409 103/hwDhfxxv601-333Vbf [facility] CenterComment on above:Performed By: #### CBC ####[facility] Emxkpbvigk906[address] [place], [place] [address]Dr.Airam ChangRBC3.03 106/ulCritically low4.20-5.40The [facility] CenterComment on above:Performed By: #### CBC ####[facility] Hzzobkcnls3825[address] [place], [place] [address]Dr.Selenalan ChangWBC5.5 103/ul Normal4.0-11.0The [facility] CenterComment on above:Performed By: #### CBC ####[facility] Gmcmbvsdtw867[address] [place], [place] [id number]. Yilan ChangPROF 14(COMP METB)on 26-52-2912Zxeully [Mass/Vol]2.7 g/dLCritically low3.4-5.0The [facility] CenterComment on above:Performed By: #### CMP ####[facility] Upqyiatkmh033[address] [place], [place] [address]Dr. Yilan ChangAlbumin/Globulin [Mass ratio]0.9 {ratio}NormalThe [facility] Comment on above:Performed By: #### CMP ####[facility] Esrexozymi489[address] [place], [place] [address]Dr.Yilan ChangALP [Catalytic activity/Vol] 113 U/WVyswqc55-838Ejy [facility] CenterComment on above:Performed By: #### CMP ####[facility] Tratikibin3710[address] [place], [place] [address]Dr. Yilan ChangALT [Catalytic activity/Vol]20 U/AMhqpma89-50Hdv [facility] Comment on above:Performed By: #### CMP ####[facility] Diegkpdiib2007[address] [place], [place] [address]Dr.Yilan ChangAnion gap [Moles/Vol]11.1 mmol/LNormalThe [facility] CenterComment on above:Performed By: #### CMP ####[facility] Ayqthfzmto9344[address] [place], [place] [address]Dr. Yilan ChangAST [Catalytic activity/Vol]19 U/BFfzrsc59-88Mci [facility] Comment on above:Performed By: #### CMP ####[facility] Kgtpxxzokg475[address] [place], [place] [address]Dr.Yilan ChangBilirubin [Mass/Vol]0.2 mg/dL Normal0.2-1.0The [facility] CenterComment on above:Performed By: #### CMP ####[facility] Jowjpyryqg24[address] [place], [place] [address]Dr. Yilan ChangCalcium [Mass/Vol]8.3 mg/dLCritically low8.5-10.1The [facility] CenterComment on above:Performed By: #### CMP ####[facility] J[address]rajzqwc79[address] [place] [id number].Yilan ChangChloride [Moles/Vol]104 mmol/FTfxqde87-056Kdj [facility] CenterComment on above:Performed By: #### CMP ####[facility] Jtzucgqusu3660[address] [place], [place] [address]Dr.Yilan ChangCO2 [Moles/Vol]25.3 mmol/QTlboes73.0-32.0The [facility] CenterComment on above:Performed By: #### CMP ####[facility] Ogwiwyjkkw9525[address] [place], [place] [address]Dr.Yilan ChangCreatinine [Mass/Vol]1.33 mg/dLCritically high0.55-1.02The [facility] CenterComment on above:Performed By: #### CMP ####[facility] Bueogvctxc7285[address] [place], [place] [address]Dr.Yilan ChangEGFR-AF JOFSBNOJ82 mL/min/1.73m2 Critically low>=60The [facility] CenterComment on above:Performed By: #### CMP ####[facility] Reuhnllzxc5567[address] [place], [place] [address]Dr. Yilan ChangEGFR-NON AF QKWIMYKJ00 mL/min/1.02g1Wuuultyckz low>=60The [facility] CenterComment on above:Performed By: #### CMP ####[facility] Qfnhsynfpu7879[address] [place], [place] [address]Dr.Yilan ChangGlobulin (S) [Mass/Vol]3.1 g/dLNormalThe [facility] CenterComment on above:Performed By: #### CMP ####[facility] Saefztmbxe5478[address] [place], [place] [address]Dr.Yilan ChangGlucose [Mass/Vol]88 mg/sLZqkdtr56-081Esw [facility] Comment on above:Performed By: #### CMP ####[facility] Vutbwtrhzf0749[address] [place], [place] [address]Dr.Yilan ChangPotassium [Moles/Vol]5.4 mmol/LCritically high3.5-5.1The [facility] CenterComment on above:Performed By: #### CMP ####[facility] Foctqyxyzy30[address] [place] [address]Dr.Yilan ChangProtein [Mass/Vol]5.8 g/dLCritically low6.4-8.2The [facility] CenterComment on above:Performed By: #### CMP ####[facility] Hlesxzsdrr5484[address] [place], [place] [address]Dr.Yilan ChangSodium [Moles/Vol]135 mmol/LCritically gqh659-517Fdu [facility] CenterComment on above: Performed By: #### CMP ####[facility] Brecpkvsdw027[address] [place], [place] [address]Dr.Yilan ChangUrea nitrogen [Mass/Vol]38.0 mg/dL Critically high7.0-18.0The [facility] CenterComment on above:Performed By: #### CMP ####[facility] Tfcezyoznx7522[address] [place], [place] [address]Dr. Yilan ChangUrea nitrogen/Creatinine [Mass ratio]28.6 mg/mgNormalThe [facility] CenterComment on above:Performed By: #### CMP ####[facility] Bzkewrrqah9295[address] [place], [place] [address]Dr.Selenalan ChangOSMOLALITYon 52-16-6635Uunbsewqtn [Osmolality]284 mosm/hiJzcput988-125Wyr [facility] Comment on above:Performed By: #### OSMO ####[facility] Ndxgbtvlvh3155[address] [place], [place] [address]Dr. Selenalan ChangCBC AUTO DIFFon 04-14-2022 BASO #0.0 103/ulNormal0.0-0.1The [facility] CenterComment on above:Performed By: #### CBC ####[facility] Saerhnpdfr4205[address] [place], [place] [address]Dr.Yilan ChangBasophils/100 WBC (Bld)0.5 %Normal0.2-2.0The [facility] CenterComment on above:Performed By: #### CBC ####[facility] Ehmxvlhmyo0784[address] [place], [place] [address]Dr.Yilan ChangEO #0.3 103/ul Normal0.0-0.7The [facility] CenterComment on above:Performed By: #### CBC ####[facility] Vugadhwdci704[address] [place], [place] [address]Dr. Yilan ChangEosinophils/100 WBC (Bld)3.6 %Normal0.9-7.0The [facility] Comment on above:Performed By: #### CBC ####[facility] Dxwomwhpue655[address] [place], [place] [address]Dr.Yilan ChangErythrocyte distribution width (RBC) [Ratio]13.4 %Yypmhb75.0-15.0The [facility] CenterComment on above: Performed By: #### CBC ####[facility] Clvfholjqf0959[address] [place], [place] [address]Dr.Yilan ChangHematocrit (Bld) [Volume fraction]30.6 % Critically low36.0-48.0The [facility] CenterComment on above:Performed By: #### CBC ####[facility] Njnpwhddbi1454[address] [place], [place] [address]Dr. Airam ChangHemoglobin (Bld) [Mass/Vol]9.7 g/dLCritically low12.0-16.0The [facility] CenterComment on above:Performed By: #### CBC ####[facility] Txzfezisgp8477[address] [place], [place] [address]Dr.Yilan ChangIG #0.08 10e3/ulCritically high0.00-0.03The [facility] CenterComment on above:Performed By: #### CBC ####[facility] Nxtmzvcpmi5275[address] [place], [place] [address]Dr.Yilan ChangIG %0.9 %Critically high0.0-0.5The [facility] HospitalComment on above:Performed By: #### CBC ####[facility] Ybyrcxhmzy950[address] [place], [place] [address]Dr.Yilan ChangLYMPH #2.1 103/ulNormal1.2-3.8The [facility] CenterComment on above:Performed By: #### CBC ####[facility] Wmdrfpfxhg[address] [place] [address]Dr.Airam TripathiLymphocytes/100 WBC (Bld)24.2 %Bbyxph43.5-60.0The [facility] CenterComment on above:Performed By: #### CBC ####[facility] Qqpiyjujfy3346[address] [place], [place] [address]Dr.Airam TripathiMANUAL DIFF REQNONormalThe [facility] CenterComment on above:Performed By: #### CBC ####[facility] Jdsryqjkim1647[address] [place], [place] [address]Dr.Airam TripathiH (RBC) [Entitic mass]30.4 pgNormal 26.7-34.0The [facility] CenterComment on above:Performed By: #### CBC ####[facility] Gshosvwccz1107[address] [place], [place] [address]Dr. Airam TripathiHC (RBC) [Mass/Vol]31.7 g/pFBaqhvu61.9-35.2The [facility] Comment on above:Performed By: #### CBC ####[facility] Zpyeharxvu967[address] [place], [place] [address]Dr.Airam TripathiMCV (RBC) [Entitic vol]95.9 fL Lzayix18.0-99.0The [facility] CenterComment on above:Performed By: #### CBC ####[facility] Vrrxfmguha4437[address] [place], [place] [address]Dr. Airam TripathiMONO #0.5 103/ulNormal0.3-0.8The [facility] CenterComment on above: Performed By: #### CBC ####[facility] Ynbtevnxuw1449[address] [place], [place] [address]Dr.Airam ChangMonocytes/100 WBC (Bld)6.0 %Normal 1.7-12.0The [facility] CenterComment on above:Performed By: #### CBC ####[facility] Qbsdtsndqp3529[address] [place], [place] [address]Dr. Airam TripathiNEUT #5.6 103/ulNormal1.4-6.5The [facility] CenterComment on above: Performed By: #### CBC ####[facility] Jfrbtforym[address] [place] [address]Dr.Airam TripathiNeutrophils/100 WBC (Bld)64.8 %Normal 43.0-75.0The [facility] CenterComment on above:Performed By: #### CBC ####[facility] Lavrypnbhc119[address] [place] [address]Dr. Selenaneil DeucePlatelet mean volume (Bld) [Entitic vol]9.2 fLCritically low9.5-13.5 The [facility] CenterComment on above:Performed By: #### CBC ####[facility] Gmhxvypwjg6527[address] [place], [place] [address]Dr.Airam TripathiPLT296 103/zyRpkxii163-794Rjc [facility] CenterComment on above:Performed By: #### CBC ####[facility] Xivgjnkaru7585[address] [place], [place] [address]Dr. Airam TripathiRBC3.19 106/ulCritically low4.20-5.40The [facility] CenterComment on above:Performed By: #### CBC ####[facility] Lbdotfpwav529[address] [place], [place] [address]Dr.Airam TripathiWBC8.6 103/ulNormal4.0-11.0The [facility] CenterComment on above:Performed By: #### CBC ####[facility] Ekosgzgzlk4904[address] [place], [place] [address]Dr.Airam TripathiPROF 14(COMP METB)on 89-12-7543Onndgjo [Mass/Vol]3.2 g/dLCritically low3.4-5.0The [facility] CenterComment on above:Performed By: #### CMP ####[facility] Jjdtrhxqtc7678[address] [place], [place] [address]Dr.Airam Tripathi Albumin/Globulin [Mass ratio]1.0 {ratio}NormalThe [facility] CenterComtrinity health [facility] on above:Performed By: #### CMP ####[facility] Nhmajxsosc4687[address] [place], [place] [address]Dr.Airam TripathiALP [Catalytic activity/Vol]126 U/L Critically dckz06-990Cit [facility] CenterComment on above:Performed By: #### CMP ####[facility] Jvbxdyldga34[address] [place] [id number]. Yilan ChangALT [Catalytic activity/Vol]27 U/SAquwbt56-11Gzk [facility] Comment on above:Performed By: #### CMP ####[facility] Qaetsnvqmv7958 [place] [id number].Yilan ChangAnion gap [Moles/Vol]9.6 mmol/LNormalThe [facility] CenterComment on above:Performed By: #### CMP ####[facility] Eswnqqofbi6[address] [place] [address]Dr. Yilan ChangAST [Catalytic activity/Vol]25 U/GRxbwln68-14Oqf [facility] Comment on above:Performed By: #### CMP ####[facility] Yoncbwvarq4[address] [place] [address]Dr.Yilan ChangBilirubin [Mass/Vol]0.3 mg/dL Normal0.2-1.0The [facility] CenterComment on above:Performed By: #### CMP ####[facility] Pbrshpiouo[address] [place], [place] [address]Dr. Yilan ChangCalcium [Mass/Vol]8.1 mg/dLCritically low8.5-10.1The [facility] CenterComment on above:Performed By: #### CMP ####[facility] Imhkqcbmof58[address] [place] [address]Dr.Yilan ChangChloride [Moles/Vol]100 mmol/XQwqdaa03-054Enc [facility] CenterComment on above:Performed By: #### CMP ####[facility] Wkjvqqpfxe07[address] [place] [id number].Yilan ChangCO2 [Moles/Vol]26.5 mmol/BPogggm80.0-32.0The [facility] CenterComment on above:Performed By: #### CMP ####[facility] Abvmndmvgp06[address] [place] [address]Dr.Yilan ChangCreatinine [Mass/Vol]1.52 mg/dLCritically high0.55-1.02The [facility] CenterComment on above:Performed By: #### CMP ####[facility] Ynyswbejhs5[address] [place] [address]Dr.Yilan ChangEGFR-AF CDWPZASS92 mL/min/1.73m2 Critically low>=60The [facility] CenterComment on above:Performed By: #### CMP ####[facility] Hlrqcslkvi6716[address] [place], [place] [address]Dr. Yilan ChangEGFR-NON AF VSMWQERV70 mL/min/1.55b6Zkxxtkskpw low>=60The [facility] CenterComment on above:Performed By: #### CMP ####[facility] Uoufxizomb892[address] [place], [place] [address]Dr.Yilan ChangGlobulin (S) [Mass/Vol]3.3 g/dLNormalThe [facility] CenterComment on above:Performed By: #### CMP ####[facility] Rsrfvtokdp2106[address] [place], [place] [address]Dr.Yilan ChangGlucose [Mass/Vol]75 mg/rCIjqebq11-955Ytp [facility] Comment on above:Performed By: #### CMP ####[facility] Hotvwantbd[address] [place], [place] [address]Dr.Yilan ChangPotassium [Moles/Vol]4.1 mmol/LNormal3.5-5.1The [facility] CenterComment on above:Performed By: #### CMP ####[facility] Gulpjjiuki5815[address] [place], [place] [address]Dr. Yilan ChangProtein [Mass/Vol]6.5 g/dLNormal6.4-8.2The [facility] CenterComment on above:Performed By: #### CMP ####[facility] Hliypkulci6325[address] [place], [place] [address]Dr.Yilan ChangSodium [Moles/Vol]132 mmol/LCritically naf245-269Sam [facility] CenterComment on above:Performed By: #### CMP ####[facility] Zkpbvbueya[address] [place], [place] [address]Dr. Yilan ChangUrea nitrogen [Mass/Vol]40.0 mg/dLCritically high7.0-18.0The [facility] CenterComment on above:Performed By: #### CMP ####[facility] Yfefadycmf4229[address] [place], [place] [address]Dr.Selenaneil DeuceUrea nitrogen/Creatinine [Mass ratio]26.3 mg/mgNormalThe [facility] CenterComment on above:Performed By: #### CMP ####[facility] Gakwewjitl9329[address] [place], [place] [address]Dr.Airam TripathiOSMOLALITYon 60-10-6821Ismuuugiga [Osmolality]280 mosm/nsMiurmp347-510Tls [facility] CenterComment on above: Performed By: #### OSMO ####[facility] Ywlhaujsjd[address] [place], [place] [address]Dr. Selenaneil DeucePTH INTACTon 35-80-3358BMJ, Zrnnpv75 pg/mLCritically cuwm72-16Szo [facility] CenterComment on above:Performed By: #### PTHINT ####[facility] Khidkocser[address] [place], [place] [address]Dr. Airam DeuceCBC W MANUAL DIFFon 95-33-0970GLYNZEJO LYMPH #NormalThe [facility] CenterComment on above:Performed By: #### CBCMAN ####[facility] Wtyptjlxtu22[address] [place], [place] [address]Dr. Selenaneil Tripathi ATYPICAL LYMPH %NormalThe [facility] CenterComment on above:Performed By: #### CBCMAN ####[facility] Drouwmsuto89[address] [place], [place] [address]Dr. Airam TripathiBAND #Normal0.0-0.3The [facility] CenterComment on above: Performed By: #### CBCMAN ####[facility] Vkgpzuuzle9[address] [place], [place] [address]Dr. Airam TripathiBAND %Normal0-5The [facility] on above:Performed By: #### CBCMAN ####[facility] Ixfhktsjwj0[address] [place], [place] [address]Dr. Airam TripathiBASOM #0.00 103/ulNormal 0.00-0.10The [facility] CenterComment on above:Performed By: #### CBCMAN ####[facility] W[address]igjrdgm[address] [place] [address]Dr. Yilan ChangBASOM %0.0 %Critically low0.2-2.0The [facility] CenterComment on above:Performed By: #### CBCGERALDINE ####[facility] Uihzvlfvmb7[address] [place] [address]Dr. Yilan ChangBLAST #NormalThe [facility] Comment on above:Performed By: #### CBCGERALDINE ####[facility] Alcmugmsvy5[address] [place] [address]Dr. Yilan ChangBLAST %NormalThe [facility] Va Medical CenterComment on above:Performed By: #### CBCGERALDINE ####[facility] Cftpxdgytz[address] [place], [place] [address]Dr. Yilan ChangCORRECTED WBC Normal4.0-11.0Hocking Valley Community HospitalComment on above:Performed By: #### CBCGERALDINE ####[facility] Vouurgcisw87[address] [place], [place] [address]Dr. Yilan ChangEOS #0.00 103/ulNormal0.00-0.70The [facility] CenterComment on above: Performed By: #### CBCGERALDINE ####[facility] Wwwwjrhvap2223[address] [place], [place] [address]Dr. Yilan ChangEOS%0.0 %Critically low0.9-7.0The [facility] CenterComment on above:Performed By: #### CBCGERALDINE ####[facility] Czjolhrzhv[address] [place], [place] [address]Dr. Yilan ChangHCT 29.7 %Critically low36.0-48.0The [facility] CenterComment on above:Performed By: #### CBCGERALDINE ####[facility] Exhwvzpokm217[address] [place], [place] [address]Dr. Yilan ChangHGB9.5 g/dlCritically low12.0-16.0The [facility] Comment on above:Performed By: #### CBCGERALDINE ####[facility] Fogabemzdm5209[address] [place], [place] [address]Dr. Yilan ChangLYMPHM #0.42 103/ulCritically low1.20-3.80The [facility] HospitalComment on above:Performed By: #### CBCGERALDINE ####[facility] Gruljjqjur[address] [place] [address]Dr. Airam TripathiLYMPHM%7.0 %Critically low20.5-60.0The [facility] HospitalComment on above:Performed By: #### CBCGERALDINE ####[facility] Zpqdtcxjhb8856[address] [place], [place] [address]Dr. Airam TripathiMCH30.9 guKbduqx19.7-34.0The [facility] CenterComment on above:Performed By: #### CBCGERALDINE ####[facility] Lnejpjaegi4449[address] [place], [place] [address]Dr. Airam TripathiMCHC32.0 g/dl Vfzavt33.9-35.2The [facility] CenterComment on above:Performed By: #### CBCGERALDINE ####[facility] Nqwkuuqwvs647[address] [place], [place] [address]Dr. Airam TripathiMCV96.7 hUMopslo01.0-99.0The [facility] CenterComment on above: Performed By: #### CBCGERALDINE ####[facility] Nyqqjpmuub812[address] [place], [place] [address]Dr. Airam ChangMETAMYELOCYTE #NormalThe [facility] Medical CenterComtrinity health [facility] on above:Performed By: #### CBCMAN ####[facility] Kudtfwttkg8540[address] [place], [place] [address]Dr. Airam ChangMETAMYELOCYTE %NormalThe [facility] HospitalComment on above:Performed By: #### CBCMAN ####[facility] Wcvophyepx5149[address] [place], [place] [address]Dr. Airam TripathiMONOM#0.36 103/ulNormal0.30-0.80The [facility] CenterComment on above:Performed By: #### CBCMAN ####[facility] Bsuerpgzzz3632[address] [place], [place] [address]Dr. Airam TripathiMONOM%6.0 %Normal1.7-12.0The [facility] HospitalComment on above:Performed By: #### CBCGERALDINE ####[facility] Euafvuhsyd[address] [place] [id number]. Yilan ChangMPV9.5 fL Normal9.5-13.5The [facility] HospitalComment on above:Performed By: #### CBCGERALDINE ####[facility] Iwabynkpps9005 [place] [address]Dr. Yilan ChangMYELOCYTE #NormalThe [facility] HospitalComment on above:Performed By: #### CBCGERALDINE ####[facility] Hojmbhbmyc84[address] [place] [address]Dr. Yilan ChangMYELOCYTE %NormalThe [facility] HospitalComment on above: Performed By: #### CBCGERALDINE ####[facility] Dopohzrzva09[address] [place] [address]Dr. Yilan ChangNRBCNormalThe [facility] HospitalComment on above:Performed By: #### CBCGERALDINE ####[facility] Znseyyzzga6368[address] [place], [place] [address]Dr. Yilan BljhoJQI694 103/lcQwdcyc266-101Srl [facility] HospitalComment on above:Performed By: #### CBCGERALDINE ####[facility] Rlcnohxblp230[address] [place], [place] [address]Dr. Selenalan ChangRBC 3.07 106/ulCritically low4.20-5.40The [facility] CenterComment on above: Performed By: #### CBCGERALDINE ####[facility] Fksowrqzby313[address] [place], [place] [address]Dr. Yilan FruaeQWM34.6 %Dttppu59.0-15.0The [facility] HospitalComment on above:Performed By: #### CBCGERALDINE ####[facility] Tfitihtvtu760[address] [place], [place] [address]Dr. Yilan ChangSEG #5.22 103/ulNormal1.40-6.50The [facility] HospitalComment on above:Performed By: #### CBCGERALDINE ####[facility] Hqcldtgucd235[address] [place], [place] [address]Dr. Yilan ChangSEG %87.0 %Critically high43.0-75.0The [facility] Comment on above:Performed By: #### CBCMAN ####[facility] Aedqseeaiz3823 [place], [place] [address]Sz. Yilan ChangWBC6.0 103/ulNormal4.0-11.0 The [facility] Medical CenterComment on above:Performed By: #### CBCMAN ####[facility] Qfxmpfcqab6499 [place] [address]Dr. Yilan ChangFREE THYROXINE INDEX T7on 90-39-0804WLV6.90Crgxfc6.30-4.50The [facility] Comment on above:Performed By: #### T7, TSH, CMP ####[facility] Stvnqencna5[address] [place], [place] [address]Dr. Selenaneil LjuvkV9M59.0 %Normal 30.0-39.0The [facility] Medical CenterComment on above:Performed By: #### T7, TSH, CMP ####[facility] Gdgubozksq4[address] [place], [place] [address]Dr. Airam ChangT4 [Mass/Vol]4.90 ug/dLNormal4.80-13.90The [facility] Medical CenterComment on above:Performed By: #### T7, TSH, CMP ####[facility] Izceqwswxa7599 [place], [place]Dr. Yilan ChangPROF 14(COMP METB)on 66-97-3056Fybvhtf [Mass/Vol]3.0 g/dLCritically low3.4-5.0The [facility] Comment on above:Performed By: #### T7, TSH, CMP ####[facility] Mhrpocdtig4851 [place], [place]Dr. Airam Tripathi Albumin/Globulin [Mass ratio]1.0 {ratio}NormalThe [facility] Medical CenterComment on above:Performed By: #### T7, TSH, CMP ####[facility] Gtagsleexd6969 [place], [place]Dr. Airam ChangALP [Catalytic activity/Vol]106 U/L Icopll25-171Gmc [facility] CenterComment on above:Performed By: #### T7, TSH, CMP ####[facility] Vpbhvprloi85[address] [place] [id number]. Yilan ChangALT [Catalytic activity/Vol]20 U/VSlawaq63-42Kip [facility] Comment on above:Performed By: #### T7, TSH, CMP ####[facility] Baixkkacvg3689 [place] [id number]. Yilan ChangAnion gap [Moles/Vol]10.8 mmol/LNormalThe [facility] Medical CenterComment on above:Performed By: #### T7, TSH, CMP ####[facility] Irrjdvmesb6810 [place] [address]Dr. Yilan ChangAST [Catalytic activity/Vol]19 U/CLyxxql11-91Vhc [facility] CenterComment on above:Performed By: #### T7, TSH, CMP ####[facility] Wlsjccvyjq74[address] [place], [place] [address]Dr. Yilan Tripathi Bilirubin [Mass/Vol]0.3 mg/dLNormal0.2-1.0The [facility] CenterComment on above: Performed By: #### T7, TSH, CMP ####[facility] Fmfmgeehhw818[address] [place], [place] [address]Dr. Yilan ChangCalcium [Mass/Vol]8.0 mg/dLCritically low8.5-10.1The [facility] CenterComment on above:Performed By: #### T7, TSH, CMP ####[facility] Vqlstbkljr[address] [place], [place] [address]Dr. Yilan ChangChloride [Moles/Vol]100 mmol/GAzbnol32-458Kvy [facility] Comment on above:Performed By: #### T7, TSH, CMP ####[facility] Spohgtvjpf727[address] [place], [place] [address]Dr. Yilan ChangCO2 [Moles/Vol] 24.3 mmol/QCaubam42.0-32.0The [facility] CenterComment on above:Performed By: #### T7, TSH, CMP ####[facility] Yirwtnisrs996[address] [place], [place] [address]Dr. Yilan ChangCreatinine [Mass/Vol]1.12 mg/dLCritically high0.55-1.02 The [facility] CenterComment on above:Performed By: #### T7, TSH, CMP ####[facility] Apvvgjjpzs3014 [place], [place]Dr. Yilan ChangEGFR-AF TEXMHGWB26 mL/min/1.20v8Lrbunc>=60The [facility] Comment on above:Performed By: #### T7, TSH, CMP ####[facility] Odsrgerdgp3412[address] [place], [place] [address]Dr. Yilan ChangEGFR-NON AF DOJGSIDB83 mL/min/1.68r2Rurpbsrbsu low>=60The [facility] CenterComment on above: Performed By: #### T7, TSH, CMP ####[facility] Jrdfxrzvnp7944[address] [place], [place] [address]Dr. Airam ChangGlobulin (S) [Mass/Vol]3.0 g/dLNormalThe [facility] CenterComment on above:Performed By: #### T7, TSH, CMP ####[facility] Kvwkpwvtmm299[address] [place], [place] [address]Dr. Airam Tripathi Glucose [Mass/Vol]76 mg/wVFowrmz04-816Thy [facility] CenterComment on above: Performed By: #### T7, TSH, CMP ####[facility] Qyioasvzgi5432[address] [place], [place] [address]Dr. Airam ChangPotassium [Moles/Vol]4.1 mmol/LNormal 3.5-5.1The [facility] CenterComment on above:Performed By: #### T7, TSH, CMP ####[facility] Hjodgolyat8[address] [place], [place] [address]Dr. Yilan ChangProtein [Mass/Vol]6.0 g/dLCritically low6.4-8.2The [facility] Comment on above:Performed By: #### T7, TSH, CMP ####[facility] Yhmcamptit[address] [place], [place] [address]Dr. Yilan ChangSodium [Moles/Vol]131 mmol/LCritically cfp732-872Ses [facility] CenterComment on above: Performed By: #### T7, TSH, CMP ####[facility] Esgvcwxvyq098[address] [place], [place] [address]Dr. Selenalan ChangUrea nitrogen [Mass/Vol]32.0 mg/dL Critically high7.0-18.0The [facility] CenterComment on above:Performed By: #### T7, TSH, CMP ####[facility] Zrhoghywfx4194[address] [place], [place] [address]Dr. Yilan ChangUrea nitrogen/Creatinine [Mass ratio]28.6 mg/mgNormalThe [facility] HospitalComment on above:Performed By: #### T7, TSH, CMP ####[facility] Vefrmblngp[address] [place], [place] [address]Dr. Airam ChangTSHon 24-71-1266SRL9.027 uIU/mLCritically low0.358-3.740Hock[facility] Valley Community HospitalComment on above:Performed By: #### T7, TSH, CMP ####[facility] Rndpsuuxty10[address] [place], [place] [address]Dr. Airam TripathiUA RANDOMon 04-08-2022 Bilirubin Ql (U)NegativeNormalNEGATIVEHocking Valley Community HospitalComment on above: Performed By: #### UA ####[facility] Xygsckvbkq5660[address] [place], [place] [address]Dr. Yilan ChangClarity (U)CLEARNormalCLEARAcmc Healthcare System Glenbeigh HospitalComment on above:Performed By: #### UA ####[facility] Yrizjqtvgw734[address] [place], [place] [address]Dr. Selenalan ChangColor (U)LT. YELLOWNormalYELLOWHocking Valley Community HospitalComment on above:Performed By: #### UA ####[facility] Nmhkkkihid100[address] [place], [place] [address]Dr. Y grayson ChangGlucose Ql (U)NegativeNormalNEGATIVEHocking Valley Community HospitalComment on above:Performed By: #### UA ####[facility] Vjbhbqverx588[address] [place], [place] [address]Dr. Yilan ChangHemoglobin Ql (U)NegativeNormalNEGATIVE The [facility] HospitalComment on above:Performed By: #### UA ####[facility] Vtecpeqqxk9[address] [place] [address]Dr. Airam Tripathi Ketones Ql (U)NegativeNormalNEGATIVEThe [facility] HospitalComment on above: Performed By: #### UA ####[facility] Akkingkpyr1456[address] [place], [place] [address]Dr. Selenaneil ChangLEUKOCYTESNegativeNormalNEGATIVEThe [facility] HospitalComment on above:Performed By: #### UA ####[facility] Wyiaaalydn9019[address] [place], [place] [address]Dr. Selenaneil ChangNitrite Ql (U) NegativeNormalNEGATIVEThe [facility] CenterComment on above:Performed By: #### UA ####[facility] Gyiurxcbfr9348[address] [place], [place] [address]Dr. Airam ChangpH (U)6.0 [pH]Normal5-9The [facility] CenterComment on above: Performed By: #### UA ####[facility] Bjpwqbvell7786[address] [place], [place] [address]Dr. Airam TripathiSPEC GRAVITY1.333Mmyekp4.005-<=1.025The [facility] CenterComment on above:Performed By: #### UA ####[facility] Ujanuhfniy2137[address] [place], [place] [address]Dr. Airam TripathiUA PROTEIN NegativeNormalNEGATIVE/ TRACEThe [facility] Medical CenterComment on above:Performed By: #### UA ####[facility] Syehtwovfb395[address] [place], [place] [address]Dr. Airam ChangUrobilinogen Qn (U)0.2 {Ligia'U}/dLNormal0.2 - 1.0The [facility] CenterComment on above:Performed By: #### UA ####[facility] Utahzrgeex727[address] [place], [place] [address]Dr. Airam TripathiURINE T PROTEIN CREAT RATIOon 54-71-7346WC PROT CREAT RAT0.32NormalThe [facility] Comment on above:Performed By: #### URTPCR ####[facility] Dgowrjuyiu5[address] [place] [address]Dr. Selenaneil DeuceUR TOTAL PROTEIN<6.0Normal <=12.0The [facility] CenterComment on above:Performed By: #### URTPCR ####[facility] Qduffszlps5103 [place] [address]Dr. Selenaneil DeuceURINE CREAT18.75 mg/dLCritically low20.00-300.00The [facility] Comment on above:Performed By: #### URTPCR ####[facility] Xsvstqwilw7485 [place] [address]Dr. Airam TripathiFERRITINon 86-21-8182Llrllitb [Mass/Vol]99.0 ng/mLNormal8.0-252.0The [facility] CenterComment on above: Performed By: #### FETWALDO VALADEZ, FERR ####[facility] Bxyxujqjdo[address] [place], [place] [address]Dr. Airam TripathiIRON AND TIBCon 04-06-2022% IHDCCISHQW39.4 %NormalThe [facility] CenterComment on above:Performed By: #### FETLEONARDCMUNIRAAD, FERR ####[facility] Ieglmxizff18[address] [place], [place] [address]Dr. Airam ChangIron [Mass/Vol]43.0 ug/dLCritically low 50.0-170.0The [facility] CenterComment on above:Performed By: #### FETIBC, VITAD, FERR ####[facility] Mmbpqetxls[address] [place], [place] [address]Dr. Airam TripathiTIBC YHTZER366.0 ug/rJKjjodn945.0-450.0The [facility] Comment on above:Performed By: #### FETIBC, VITAD, FERR ####[facility] Xijarvlvrl49[address] [place], [place] [address]Dr. Airam ChangPROF 14(COMP METB)on 15-70-0125Yzqtnde [Mass/Vol]3.2 g/dLCritically low3.4-5.0The [facility] CenterComment on above:Performed By: #### CMP, URIC ####[facility] Zxmyjjxbgq8838 [place] [id number]. Airam Deuce Albumin/Globulin [Mass ratio]1.0 {ratio}NormalThe [facility] Medical CenterComtrinity health [facility] on above:Performed By: #### CMP, URIC ####[facility] Wwznwtehjg1299 [place] [address]Dr. Airam TripathiALP [Catalytic activity/Vol]118 U/LCritically vvni12-801Jze [facility] CenterComment on above:Performed By: #### CMP, URIC ####[facility] Khwhporrwc4063 [place] [address]Dr. Airam TripathiALT [Catalytic activity/Vol]24 U/BYfqzio97-09Bss [facility] on above:Performed By: #### CMP, URIC ####[facility] Krenatnxet5651 [place] [address]Dr. Airam ChangAnion gap [Moles/Vol]14.4 mmol/LNormalThe [facility] CenterComment on above:Performed By: #### CMP, URIC ####[facility] Fntqfkhioy5353 [place] [address]Dr. Airam ChangAST [Catalytic activity/Vol]21 U/FHfaqsj23-40Qgx [facility] on above:Performed By: #### CMP, URIC ####[facility] Soqoubqsgn2766 [place] [address]Dr. Airam Tripathi Bilirubin [Mass/Vol]0.3 mg/dLNormal0.2-1.0The [facility] Hospitalment on above: Performed By: #### CMP, URIC ####[facility] Axanfdmlzp6356 [place] [id number]. Airam TripathiCalcium [Mass/Vol]8.0 mg/dLCritically low8.5-10.1The [facility] Hospitalment on above:Performed By: #### CMP, URIC ####[facility] Yxlwjzoggi2894 [place] [address]Dr. Airam ChangChloride [Moles/Vol]98 mmol/TJefsxa37-542Avi [facility] CenterComment on above:Performed By: #### CMP, URIC ####[facility] Lrjvgkexgm8509[address] [place], [place] [address]Dr. Yilan ChangCO2 [Moles/Vol]22.0 mmol/LNormal 21.0-32.0The [facility] HospitalComment on above:Performed By: #### CMP, URIC ####[facility] Yqkamhbpzx5984[address] [place], [place] [address]Dr. Yilan ChangCreatinine [Mass/Vol]1.86 mg/dLCritically high0.55-1.02The [facility] HospitalComment on above:Performed By: #### CMP, URIC ####[facility] Rpksonepse101[address] [place], [place] [address]Dr. Yilan ChangEGFR-AF UBECJJMI58 mL/min/1.07b7Enqtntsbhp low>=60The [facility] CenterComment on above: Performed By: #### CMP, URIC ####[facility] Yqpqdauyqs356[address] [place], [place] [address]Dr. Yilan ChangEGFR-NON AF RJDZRPJA33 mL/min/1.73m2 Critically low>=60The [facility] CenterComment on above:Performed By: #### CMP, URIC ####[facility] Henvfgtrbs[address] [place], [place] [address]Dr. Yilan ChangGlobulin (S) [Mass/Vol]3.1 g/dLNoGlenbeigh Hospital Comment on above:Performed By: #### CMP, URIC ####[facility] Tsnhcexkwc389[address] [place], [place] [address]Dr. Yilan ChangGlucose [Mass/Vol]93 mg/hHHihomj01-936Gvj [facility] CenterComment on above:Performed By: #### CMP, URIC ####[facility] Hmlvrbqyhz9506[address] [place], [place] [address]Dr. Yilan ChangPotassium [Moles/Vol]4.4 mmol/LNormal 3.5-5.1The [facility] CenterComment on above:Performed By: #### CMP, URIC ####[facility] Gfaycohobg25[address] [place], [place] [address]Dr. Airam ChangProtein [Mass/Vol]6.3 g/dLCritically low6.4-8.2[facility] Comment on above:Performed By: #### CMP, URIC ####[facility] Fdsyurmglg4565 [place] [address]Dr. Yilan ChangSodium [Moles/Vol]130 mmol/LCritically ybx728-610Pjo [facility] CenterComment on above: Performed By: #### CMP, URIC ####[facility] Tgqawgeqkf1481 [place] [address]Dr. Yilan ChangUrea nitrogen [Mass/Vol]49.0 mg/dL Critically high7.0-18.0The [facility] CenterComment on above:Performed By: #### CMP, URIC ####[facility] Sbyajulchl0385 [place] [address]Dr. Yilan ChangUrea nitrogen/Creatinine [Mass ratio]26.3 mg/mgNoGlenbeigh HospitalComment on above:Performed By: #### CMP, URIC ####[facility] Zjelcscxdt5733 [place] [address]Dr. Yilan ChangURIC ACID SERUMon 04-64-7270Nbgfp [Mass/Vol]6.5 mg/dLCritically high2.6-6.0The [facility] CenterComment on above:Performed By: #### CMP, URIC ####[facility] Svlmyebcga3721 [place] [address]Dr. Airam Tripathi VITAMIN D 25 OHon 14-38-2558DIF D 25-OH74.5 ng/mLNormalThe [facility] Comment on above:Performed By: #### FETIBC, VITAD, FERR ####[facility] Hbcmaogwvx6004 [place] [address]Dr. Yilan ChangVIT D RANGES SEE BELOWFirelands Regional Medical CenterComment on above:Result Comment: <20 ng/mL Vit D deficient 20 - <30 ng/mL Vit D insufficient 30 - 100 ng/mL Vit D sufficient >100 ng/mL Potential ToxicityPerformed By: #### FETIBC, VITAD, FERR ####[facility] Ieztuihsqo1246 [place] [address]Dr. Selenaneil ChangOSMOLALITYon 61-74-9201Yjbzruojmm [Osmolality]284 mosm/kgNormal 275-295The [facility] CenterComment on above:Performed By: #### OSMO ####[facility] Egivnizcta066[address] [place], [place] [address]Dr. Airam TripathiCBC AUTO DIFFon 17-91-9217GEJD #0.0 103/ulNormal0.0-0.1The [facility] CenterComment on above:Performed By: #### CBC ####[facility] Fqmqkytroh6[address] [place], [place] [address]Dr.Airam TripathiBasophils/100 WBC (Bld)0.3 %Normal0.2-2.0The [facility] CenterComment on above:Performed By: #### CBC ####[facility] Mtplewxdhr358[address] [place], [place] [address]Dr.Airam ChangEO #0.1 103/ulNormal0.0-0.7The [facility] CenterComment on above:Performed By: #### CBC ####[facility] Dugjvorafh14[address] [place], [place] [address]Dr.Airam ChangEosinophils/100 WBC (Bld)2.0 %Normal 0.9-7.0The [facility] CenterComment on above:Performed By: #### CBC ####[facility] Ofkqvwbylz5505[address] [place], [place] [address]Dr.Airam Tripathi Erythrocyte distribution width (RBC) [Ratio]13.5 %Qfrwbk34.0-15.0The [facility] CenterComment on above:Performed By: #### CBC ####[facility] Ylyyisdbzw167[address] [place], [place] [address]Dr.Airam TripathiHematocrit (Bld) [Volume fraction]32.5 %Critically low36.0-48.0The [facility] CenterComment on above:Performed By: #### CBC ####[facility] Rlfvyoanso[address] [place], [place] [address]Dr.Yilan ChangHemoglobin (Bld) [Mass/Vol]10.1 g/dL Critically low12.0-16.0The [facility] CenterComment on above:Performed By: #### CBC ####[facility] Aokcbovrme4[address] [place], [place] [address]DrKianna TripathiIG #0.03 10e3/ulNormal0.00-0.03The [facility] CenterComment on above: Performed By: #### CBC ####[facility] Fgurtrdffr70[address] [place], [place] [address]DrBroderick TripathiIG %0.4 %Normal0.0-0.5The [facility] CenterComment on above:Performed By: #### CBC ####[facility] Ppoqohhfkg8569[address] [place], [place] [address]Dr.Airam TripathiLYMPH #1.6 103/ulNormal1.2-3.8The [facility] CenterComment on above:Performed By: #### CBC ####[facility] Tayogctfrh4994[address] [place], [place] [address]Dr. Airam Tripathimphocytes/100 WBC (Bld)22.6 %Rdugbz00.5-60.0The [facility] Comment on above:Performed By: #### CBC ####[facility] Xsmekmrgfu2499[address] [place], [place] [address]Dr.Airam TripathiMANUAL DIFF REQNONormalThe [facility] CenterComment on above:Performed By: #### CBC ####[facility] Cthlfzkdvv029[address] [place], [place] [address]Dr.Airam TripathiMEDISYS HEALTH NETWORK (RBC) [Entitic mass]30.5 jhCriuqs14.7-34.0The [facility] CenterComment on above: Performed By: #### CBC ####[facility] Ehqpdqnrua232[address] [place], [place] [address]DrBroderick TripathiST. [facility]ER'[facility] (RBC) [Mass/Vol]31.1 g/dLNormal 29.9-35.2The [facility] CenterComment on above:Performed By: #### CBC ####[facility] Fvdvvseynv9584[address] [place], [place] [address]Dr. Airam TripathiMCV (RBC) [Entitic vol]98.2 iBVjyngy10.0-99.0The [facility] Comment on above:Performed By: #### CBC ####[facility] Wwjramvhxt1442 [place] [address]Dr.Airam TripathiMONO #0.5 103/ulNormal0.3-0.8 The [facility] CenterComment on above:Performed By: #### CBC ####[facility] Ecxnfjtiyi6[address] [place], [place] [address]Dr.Airam Tripathi Monocytes/100 WBC (Bld)7.3 %Normal1.7-12.0The [facility] CenterComment on above: Performed By: #### CBC ####[facility] Nndvzpansx7167[address] [place], [place] [address]Dr.Airam TripathiNEUT #4.7 103/ulNormal1.4-6.5The [facility] CenterComment on above:Performed By: #### CBC ####[facility] Icwnvzwynd[address] [place], [place] [address]Dr.Airam TripathiNeutrophils/100 WBC (Bld)67.4 %Wsqthm48.0-75.0The [facility] CenterComment on above:Performed By: #### CBC ####[facility] Flmlsotjks3708[address] [place], [place] [address]Dr.Airam TripathiPlatelet mean volume (Bld) [Entitic vol]9.5 fLNormal9.5-13.5 The [facility] CenterComment on above:Performed By: #### CBC ####[facility] Cxbxetdbvs22[address] [place], [place] [address]Dr.Airam HmcmhSQI621 103/xnHydgev454-851Anp [facility] CenterComment on above:Performed By: #### CBC ####[facility] Liyimgthbj[address] [place], [place] [address]Dr. Airam TripathiRBC3.31 106/ulCritically low4.20-5.40The [facility] CenterComment on above:Performed By: #### CBC ####[facility] [address] [place] [address]Dr.Airam ChangWBC7.0 103/ulNormal4.0-11.0The [facility] CenterComment on above:Performed By: #### CBC ####[facility] Nbgqpwkiap[address] [place], [place] [address]Dr.Airam ChangPROF 14(COMP METB)on 75-93-0410Vhkkxur [Mass/Vol]3.4 g/dLNormal3.4-5.0The [facility] Comment on above:Performed By: #### CMP ####[facility] Kubcmcicnu[address] [place], [place] [address]Dr.Airam TripathiAlbumin/Globulin [Mass ratio] 1.1 {ratio}NormalThe [facility] CenterComment on above:Performed By: #### CMP ####[facility] Eikahgljgk38[address] [place], [place] [address]Dr. Airam ChangALP [Catalytic activity/Vol]107 U/IUbpzmb08-476Dan [facility] Comment on above:Performed By: #### CMP ####[facility] Igrhqzmxjc2[address] [place], [place] [address]Dr.Airam ChangALT [Catalytic activity/Vol]22 U/PGzbult19-04Abt [facility] CenterComment on above:Performed By: #### CMP ####[facility] Nkluyfvmbf[address] [place], [place] [address]Dr. Airam TripathiAnion gap [Moles/Vol]6.8 mmol/LNormalThe [facility] CenterComment on above:Performed By: #### CMP ####[facility] Lnrokqpzai[address] [place], [place] [address]Dr.Airam ChangAST [Catalytic activity/Vol]23 U/LNormal 15-37The [facility] CenterComment on above:Performed By: #### CMP ####[facility] Xfzqmyfvzw119[address] [place], [place] [address]Dr.Airam Tripathi Bilirubin [Mass/Vol]0.2 mg/dLNormal0.2-1.0The [facility] CenterComment on above: Performed By: #### CMP ####[facility] [address] [place] [id number].Yilan ChangCalcium [Mass/Vol]8.4 mg/dLCritically low8.5-10.1The [facility] CenterComment on above:Performed By: #### CMP ####[facility] Z[address]dfiklq[address] [place] [address]Dr. Yilan ChangChloride [Moles/Vol]100 mmol/ZMdhlpf07-322Lvr [facility] Comment on above:Performed By: #### CMP ####[facility] Zglduzrfod07[address] [place], [place] [address]Dr.Yilan ChangCO2 [Moles/Vol]29.9 mmol/L Svbhju40.0-32.0The [facility] CenterComment on above:Performed By: #### CMP ####[facility] Dbuchqbjse8436[address] [place], [place] [address]Dr. Yilan ChangCreatinine [Mass/Vol]1.20 mg/dLCritically high0.55-1.02The [facility] CenterComment on above:Performed By: #### CMP ####[facility] Kmvqtvoefy85[address] [place], [place] [address]Dr.Yilan ChangEGFR-AF KABVXLEB96 mL/min/1.13x9Sjlffbhrcz low>=60The [facility] CenterComment on above: Performed By: #### CMP ####[facility] Tasmwsjkgd7[address] [place], [place] [address]Dr.Yilan ChangEGFR-NON AF SEICNAOD63 mL/min/1.73m2 Critically low>=60The [facility] CenterComment on above:Performed By: #### CMP ####[facility] Fntdjacvkz3277[address] [place], [place] [address]Dr. Yilan ChangGlobulin (S) [Mass/Vol]3.0 g/dLNormalThe [facility] CenterComment on above:Performed By: #### CMP ####[facility] Mxkiwiwldp357[address] [place], [place] [address]Dr.Yilan ChangGlucose [Mass/Vol]57 mg/dLCritically low 74-106The [facility] CenterComment on above:Performed By: #### CMP ####[facility] Gpegmhqgqo76[address] [place] [address]Dr.Airam Tripathi Potassium [Moles/Vol]3.7 mmol/LNormal3.5-5.1The [facility] CenterComment on above:Performed By: #### CMP ####[facility] Dcnvgykzjc998[address] [place], [place] [address]Dr.Airam TripathiProtein [Mass/Vol]6.4 g/dLNormal6.4-8.2 The [facility] CenterComment on above:Performed By: #### CMP ####[facility] Xmjrwyibqs8264[address] [place], [place] [address]Dr.Airam TripathiSodium [Moles/Vol]133 mmol/LCritically orp483-060Oog [facility] CenterComment on above:Performed By: #### CMP ####[facility] Omfddzzslv532[address] [place], [place] [address]Dr.Airam TripathiUrea nitrogen [Mass/Vol]39.0 mg/dL Critically high7.0-18.0The [facility] CenterComment on above:Performed By: #### CMP ####[facility] Orvgvsxevu[address] [place], [place] [address]Dr. Airam ChangUrea nitrogen/Creatinine [Mass ratio]32.5 mg/mgNormalThe [facility] CenterComment on above:Performed By: #### CMP ####[facility] Wxvnlvbpff8037[address] [place], [place] [address]Dr.Airam TripathiOSMOLALITYon 17-94-4656Nizlkaowhp [Osmolality]285 mosm/ttSmgpuv452-989Syx [facility] Comment on above:Performed By: #### OSMO ####[facility] Kwhvjskjgz[address] [place], [place] [address]Dr. Selenaneil DeuceCBC AUTO DIFFon 03-22-2022 BASO #0.0 103/ulNormal0.0-0.1The [facility] CenterComment on above:Performed By: #### CBC ####[facility] Jjxjajvxrw112[address] [place], [place] [address]Dr.Yilan ChangBasophils/100 WBC (Bld)0.4 %Normal0.2-2.0The [facility] CenterComment on above:Performed By: #### CBC ####[facility] Jssxeldxpf32[address] [place] [address]Dr.Yilan ChangEO #0.2 103/ul Normal0.0-0.7The [facility] CenterComment on above:Performed By: #### CBC ####[facility] Eqbuqevhxf7804[address] [place], [place] [address]Dr. Yilan ChangEosinophils/100 WBC (Bld)2.3 %Normal0.9-7.0The [facility] Comment on above:Performed By: #### CBC ####[facility] Mlbfglvmlx13[address] [place], [place] [address]Dr.Yilan ChangErythrocyte distribution width (RBC) [Ratio]13.9 %Vzsbuv22.0-15.0The [facility] CenterComment on above: Performed By: #### CBC ####[facility] Mgwmtzztti764[address] [place], [place] [address]Dr.Selenalan ChangHematocrit (Bld) [Volume fraction]32.6 % Critically low36.0-48.0The [facility] CenterComment on above:Performed By: #### CBC ####[facility] Eejtinyvic422[address] [place], [place] [address]Dr. Selenalan ChangHemoglobin (Bld) [Mass/Vol]10.3 g/dLCritically low12.0-16.0The [facility] CenterComment on above:Performed By: #### CBC ####[facility] Mgwvajjkzq5175[address] [place], [place] [address]Dr.Yilan ChangIG #0.11 10e3/ulCritically high0.00-0.03The [facility] CenterComment on above:Performed By: #### CBC ####[facility] Vjmkwzunwa9276[address] [place], [place] [address]Dr.Yilan ChangIG %1.4 %Critically high0.0-0.5The [facility] CenterComment on above:Performed By: #### CBC ####[facility] K[address]jmbmmoe[address] [place] [address]Dr.Airam TripathiLYMPH #1.3 103/ulNormal1.2-3.8The [facility] CenterComment on above:Performed By: #### CBC ####[facility] Lbtcmhmglt59[address] [place] [address]Dr.Airam TripathiLymphocytes/100 WBC (Bld)15.9 %Critically low20.5-60.0The [facility] CenterComment on above: Performed By: #### CBC ####[facility] Pvtfoowtqu[address] [place] [address]Dr.Airam TripathiMANUAL DIFF REQNONormalThe [facility] CenterComment on above:Performed By: #### CBC ####[facility] Lnahblmqgw1208[address] [place], [place] [address]Dr.Airam TripathiMCH (RBC) [Entitic mass]30.7 ntJuowkv71.7-34.0The [facility] CenterComment on above: Performed By: #### CBC ####[facility] Mzfetbdzdv1080[address] [place], [place] [address]Dr.Airam TripathiMCHC (RBC) [Mass/Vol]31.6 g/dLNormal 29.9-35.2The [facility] CenterComment on above:Performed By: #### CBC ####[facility] Dbkbfkhgke1585[address] [place], [place] [address]Dr. Airam TripathiMCV (RBC) [Entitic vol]97.0 uEWvogsl19.0-99.0The [facility] Comment on above:Performed By: #### CBC ####[facility] Qvszbstzox4024[address] [place], [place] [address]Dr.Airam TripathiMONO #0.6 103/ulNormal0.3-0.8 The [facility] CenterComment on above:Performed By: #### CBC ####[facility] Bxdgebhdob1184[address] [place], [place] [address]Dr.Airam Tripathi Monocytes/100 WBC (Bld)6.9 %Normal1.7-12.0The Sophie HospitalComment on above: Performed By: #### CBC ####[facility] Bklxkrjxbb70[address] [place] [address]Dr.Airam TripathiNEUT #5.9 103/ulNormal1.4-6.5The [facility] CenterComment on above:Performed By: #### CBC ####[facility] Plisrvzbdd198[address] [place], [place] [address]Dr.Airam TripathiNeutrophils/100 WBC (Bld)73.1 %Sbkllw77.0-75.0The [facility] HospitalComment on above:Performed By: #### CBC ####[facility] Lpifgqbcpc388[address] [place], [place] [address]Dr.iAram TripathiPlatelet mean volume (Bld) [Entitic vol]9.5 fLNormal9.5-13.5 The [facility] CenterComment on above:Performed By: #### CBC ####[facility] Zisqkulotj01[address] [place], [place] [address]Dr.Airam TripathiPLT313 103/rwRudokv374-005Auf [facility] CenterComment on above:Performed By: #### CBC ####[facility] Mzlywlbote07[address] [place], [place] [address]Dr. Airam TripathiRBC3.36 106/ulCritically low4.20-5.40The [facility] Hospitalment on above:Performed By: #### CBC ####[facility] Jiukmwtkzy617[address] [place], [place] [address]Dr.Airam TripathiWBC8.1 103/ulNormal4.0-11.0The [facility] HospitalComment on above:Performed By: #### CBC ####[facility] Mtatfkszty4037[address] [place], [place] [address]Dr.Airam TripathiPROF 14(COMP METB)on 82-44-7612Eqhwsde [Mass/Vol]3.3 g/dLCritically low3.4-5.0The [facility] HospitalComment on above:Performed By: #### CMP ####[facility] Ycctujyana4340[address] [place], [place] [address]Dr.Yilan Tripathi Albumin/Globulin [Mass ratio]1.0 {ratio}NormalThe [facility] CenterComment on above:Performed By: #### CMP ####[facility] Xhflgokwwp[address] [place] [address]Dr.Yineil ChangALP [Catalytic activity/Vol]113 U/L Ehwvat86-528Olu [facility] CenterComment on above:Performed By: #### CMP ####[facility] Abykaiwkla[address] [place] [address]Dr. Yineil ChangALT [Catalytic activity/Vol]21 U/SOezxrq31-15Ngo [facility] Comment on above:Performed By: #### CMP ####[facility] Tcxdaytpnd0732[address] [place], [place] [address]Dr.Airam ChangAnion gap [Moles/Vol]12.2 mmol/LNormalThe [facility] CenterComment on above:Performed By: #### CMP ####[facility] Arqlsiqckb0668[address] [place], [place] [address]Dr. Yineil ChangAST [Catalytic activity/Vol]21 U/LHuvdpx90-18Uuf [facility] Comment on above:Performed By: #### CMP ####[facility] Tdkfhufifo0198[address] [place], [place] [address]Dr.Yineil ChangBilirubin [Mass/Vol]0.2 mg/dL Normal0.2-1.0The [facility] CenterComment on above:Performed By: #### CMP ####[facility] Gkzeacnqlf4795[address] [place], [place] [address]Dr. Yineil ChangCalcium [Mass/Vol]8.4 mg/dLCritically low8.5-10.1The [facility] CenterComment on above:Performed By: #### CMP ####[facility] Wnkcndfdzb4460[address] [place], [place] [address]Dr.Yilan ChangChloride [Moles/Vol]103 mmol/PYzvgfc84-042Hia [facility] CenterComment on above:Performed By: #### CMP ####[facility] Npwehsxbjg5250[address] [place], [place] [address]Dr.Yilan ChangCO2 [Moles/Vol]24.4 mmol/RMlcglj32.0-32.0The [facility] CenterComment on above:Performed By: #### CMP ####[facility] Elmrbovkzb2215[address] [place], [place] [address]Dr.Yilan ChangCreatinine [Mass/Vol]1.11 mg/dLCritically high0.55-1.02The [facility] CenterComment on above:Performed By: #### CMP ####[facility] Kzdksvmyhk99[address] [place], [place] [address]Dr.Yilan ChangEGFR-AF YEMENI>60Normal>=60The [facility] CenterComment on above:Performed By: #### CMP ####[facility] Rxhymlcsmg406[address] [place], [place] [address]Dr.Yilan ChangEGFR-NON AF RXPAHRNX91 mL/min/1.01v2Vcquxtcgqg low>=60The [facility] CenterComtr[facility] on above: Performed By: #### CMP ####[facility] Rbhfommfli8336[address] [place], [place] [address]Dr.Yilan ChangGlobulin (S) [Mass/Vol]3.2 g/dLNormalThe [facility] CenterComment on above:Performed By: #### CMP ####[facility] Eartkexfit[address] [place], [place] [address]Dr.Yilan ChangGlucose [Mass/Vol]84 mg/jITdqmqh97-452CjaHocking Valley Community HospitalComtrinity [facility] on above:Performed By: #### CMP ####[facility] Rdtbikmhud7[address] [place], [place] [address]Dr.Yilan ChangPotassium [Moles/Vol]4.6 mmol/LNormal3.5-5.1The [facility] CenterComment on above:Performed By: #### CMP ####[facility] Qodgbcjpyf247[address] [place], [place] [address]Dr.Yilan ChangProtein [Mass/Vol]6.5 g/dLNormal6.4-8.2The [facility] CenterComment on above:Performed By: #### CMP ####[facility] Kodrcujkrz584[address] [place], [place] [address]Dr.Yilan ChangSodium [Moles/Vol]135 mmol/LCritically cbv917-279Dun [facility] CenterComment on above:Performed By: #### CMP ####[facility] Uodkpweblv219[address] [place], [place] [address]Dr.Airam ChangUrea nitrogen [Mass/Vol]39.0 mg/dLCritically high7.0-18.0The [facility] CenterComment on above:Performed By: #### CMP ####[facility] Zkdamwtnir867[address] [place], [place] [address]Dr.Selenalan ChangUrea nitrogen/Creatinine [Mass ratio] 35.1 mg/mgNormalThe [facility] CenterComment on above:Performed By: #### CMP ####[facility] Ruthymqlzm9874[address] [place], [place] [address]Dr. Airam ChangOSMOLALITYon 46-81-5819Pumscssemp [Osmolality]277 mosm/kgNormal 275-295The [facility] CenterComtr[facility] on above:Performed By: #### OSMO ####[facility] Jrhxuflohl64[address] [place], [place] [address]Dr. Selenalan ChangCBC AUTO DIFFon 26-07-0876ZJAR #0.0 103/ulNormal0.0-0.1The [facility] CenterComtr[facility] on above:Performed By: #### CBC ####[facility] Umtvhfrrue5657[address] [place], [place] [address]Dr.Selenalan ChangBasophils/100 WBC (Bld)0.4 %Normal0.2-2.0The [facility] CenterComtr[facility] on above:Performed By: #### CBC ####[facility] Ujqkqrimmv63[address] [place], [place] [address]Dr.Yilan ChangEO #0.1 103/ulNormal0.0-0.7The [facility] CenterComtr[facility] on above:Performed By: #### CBC ####[facility] Uexugruzsw7714[address] [place], [place] [address]Dr.Selenalan ChangEosinophils/100 WBC (Bld)2.4 %Normal 0.9-7.0The [facility] CenterComment on above:Performed By: #### CBC ####[facility] Nqedtuulhn28[address] [place] [address]Dr.Airam Tripathi Erythrocyte distribution width (RBC) [Ratio]13.9 %Ulnbui25.0-15.0The [facility] CenterComment on above:Performed By: #### CBC ####[facility] Wpcemwhqip6259[address] [place], [place] [address]Dr.Airam TripathiHematocrit (Bld) [Volume fraction]31.2 %Critically low36.0-48.0The [facility] HospitalComment on above:Performed By: #### CBC ####[facility] Gcoyunwzti6297[address] [place], [place] [address]Dr.Airam TripathiHemoglobin (Bld) [Mass/Vol]9.9 g/dL Critically low12.0-16.0The [facility] CenterComment on above:Performed By: #### CBC ####[facility] Psmgmgfrdb0412[address] [place], [place] [address]Dr. Airam DeuceIG #0.03 10e3/ulNormal0.00-0.03The [facility] CenterComment on above: Performed By: #### CBC ####[facility] Plqgbthwjq584[address] [place], [place] [address]Dr.Airam DeuceIG %0.6 %Critically high0.0-0.5The [facility] CenterComment on above:Performed By: #### CBC ####[facility] Rscxyaxhei[address] [place], [place] [address]Dr.Airam DeuceLYMPH #1.5 103/ulNormal1.2-3.8The [facility] CenterComment on above:Performed By: #### CBC ####[facility] Zxuthzwxem1875[address] [place], [place] [address]Dr. Airam DeuceLymphocytes/100 WBC (Bld)29.4 %Ulcjjr82.5-60.0The [facility] Comment on above:Performed By: #### CBC ####[facility] Dwoeuhfvpc8513[address] [place], [place] [address]Dr.Airam TripathiMANUAL DIFF REQNONormalThe [facility] CenterComment on above:Performed By: #### CBC ####[facility] [address]yqykar[address] [place] [address]Dr.Airam TripathiH (RBC) [Entitic mass]30.5 ynRcvtzi56.7-34.0The [facility] HospitalComment on above: Performed By: #### CBC ####[facility] Mczjxsqdaw9314[address] [place], [place] [address]Dr.Airam TripathiHC (RBC) [Mass/Vol]31.7 g/dLNormal 29.9-35.2The [facility] CenterComment on above:Performed By: #### CBC ####[facility] Wyfpulvdou9698[address] [place], [place] [address]Dr. Airam TripathiV (RBC) [Entitic vol]96.0 iXEeepuu05.0-99.0The [facility] Comment on above:Performed By: #### CBC ####[facility] Pidggeebhc7399[address] [place], [place] [address]Dr.Airam TripathiMONO #0.4 103/ulNormal0.3-0.8 The [facility] CenterComment on above:Performed By: #### CBC ####[facility] Ahehqipsci12[address] [place], [place] [address]Dr.Airam Tripathi Monocytes/100 WBC (Bld)7.0 %Normal1.7-12.0The [facility] CenterComment on above: Performed By: #### CBC ####[facility] Unkztcsces8915[address] [place], [place] [address]Dr.Airam TripathiNEUT #3.0 103/ulNormal1.4-6.5The [facility] CenterComment on above:Performed By: #### CBC ####[facility] Mauddfldoh9[address] [place], [place] [address]Dr.Airam TripathiNeutrophils/100 WBC (Bld)60.2 %Tiusdc45.0-75.0The [facility] CenterComment on above:Performed By: #### CBC ####[facility] Xotvboyrqo950[address] [place], [place] [address]Dr.Airam TripathiPlatelet mean volume (Bld) [Entitic vol]9.6 fLNormal9.5-13.5 The [facility] CenterComment on above:Performed By: #### CBC ####[facility] Tcuyshoqna[address] [place] [address]Dr.Airam TripathiPLT258 103/ihMntkis884-465Pmu [facility] CenterComment on above:Performed By: #### CBC ####[facility] Otjtxvdsvp7513[address] [place], [place] [address]Dr. Airam TripathiRBC3.25 106/ulCritically low4.20-5.40The [facility] CenterComment on above:Performed By: #### CBC ####[facility] Ealvxsctfl[address] [place], [place] [address]Dr.Airam TripathiWBC5.0 103/ulNormal4.0-11.0The [facility] CenterComment on above:Performed By: #### CBC ####[facility] Ggawecaqkj8576[address] [place], [place] [address]Dr.Airam TripathiPROF 14(COMP METB)on 93-63-4242Dhrmoxg [Mass/Vol]3.3 g/dLCritically low3.4-5.0The [facility] CenterComment on above:Performed By: #### CMP ####[facility] Crpjifiabk2279[address] [place], [place] [address]Dr.Airam Tripathi Albumin/Globulin [Mass ratio]1.1 {ratio}NormalThe [facility] CenterComment on above:Performed By: #### CMP ####[facility] Sfoeqcfgsh6[address] [place], [place] [address]Dr.Airam TripathiALP [Catalytic activity/Vol]106 U/L Fkkyob66-793Wip [facility] CenterComment on above:Performed By: #### CMP ####[facility] Cvqzzwxvoj5328[address] [place], [place] [address]Dr. Airam TripathiALT [Catalytic activity/Vol]22 U/ZPbcuxq86-86Ruk [facility] Comment on above:Performed By: #### CMP ####[facility] Mkxdxroodk813[address] [place], [place] [address]Dr.Yilan ChangAnion gap [Moles/Vol]11.4 mmol/LNormalThe [facility] CenterComment on above:Performed By: #### CMP ####[facility] Bpmehajxfz0184[address] [place], [place] [address]Dr. Airam ChangAST [Catalytic activity/Vol]22 U/IUjvjhv49-83Jhd [facility] Comment on above:Performed By: #### CMP ####[facility] Mciiuymtzr5377[address] [place], [place] [address]Dr.Airam ChangBilirubin [Mass/Vol]0.3 mg/dL Normal0.2-1.0The [facility] CenterComment on above:Performed By: #### CMP ####[facility] Xsgnyejiir9[address] [place], [place] [address]Dr. Airam ChangCalcium [Mass/Vol]8.1 mg/dLCritically low8.5-10.1The [facility] CenterComment on above:Performed By: #### CMP ####[facility] Yjjmvnydki[address] [place], [place] [address]Dr.Airam ChangChloride [Moles/Vol]100 mmol/MRdebrq47-920Cri [facility] CenterComment on above:Performed By: #### CMP ####[facility] Bcpwnrflsh5367[address] [place], [place] [address]Dr.Selenaneil ChangCO2 [Moles/Vol]25.6 mmol/TGxmurz99.0-32.0The [facility] CenterComment on above:Performed By: #### CMP ####[facility] Qpjlnuxcra3367[address] [place], [place] [address]Dr.Airam ChangCreatinine [Mass/Vol]1.21 mg/dLCritically high0.55-1.02The [facility] CenterComment on above:Performed By: #### CMP ####[facility] Gvqqbvbitd9768[address] [place], [place] [address]Dr.Yilan ChangEGFR-AF YGGHCBLL37 mL/min/1.73m2 Critically low>=60The [facility] CenterComment on above:Performed By: #### CMP ####[facility] Xhpcmpnkpa6926[address] [place], [place] [address]Dr. Yilan ChangEGFR-NON AF IGLMLUDK27 mL/min/1.52u2Qtdsimjtbb low>=60The [facility] CenterComment on above:Performed By: #### CMP ####[facility] Qmhtjevdxb3567[address] [place], [place] [address]Dr.Yilan ChangGlobulin (S) [Mass/Vol]3.0 g/dLNoGlenbeigh HospitalComment on above:Performed By: #### CMP ####[facility] Hefjoaexsg3876[address] [place], [place] [address]Dr.Yilan ChangGlucose [Mass/Vol]84 mg/kYWjenjj08-255Dln [facility] Comment on above:Performed By: #### CMP ####[facility] Tblxxzetfr2038[address] [place], [place] [address]Dr.Yilan ChangPotassium [Moles/Vol]4.0 mmol/LNormal3.5-5.1The [facility] CenterComment on above:Performed By: #### CMP ####[facility] Aheujfckju37[address] [place], [place] [address]Dr. Yilan ChangProtein [Mass/Vol]6.3 g/dLCritically low6.4-8.2The [facility] Comment on above:Performed By: #### CMP ####[facility] Ovothmdxwy9464[address] [place], [place] [address]Dr.Yilan ChangSodium [Moles/Vol]133 mmol/L Critically qic814-447Pxi [facility] CenterComment on above:Performed By: #### CMP ####[facility] Rvnydkdnlx58[address] [place], [place] [address]Dr. Yilan ChangUrea nitrogen [Mass/Vol]29.0 mg/dLCritically high7.0-18.0The [facility] CenterComment on above:Performed By: #### CMP ####[facility] Pwywfmiykj7[address] [place], [place] [address]Dr.Yilan ChangUrea nitrogen/Creatinine [Mass ratio]24.0 mg/mgNoGlenbeigh HospitalComment on above:Performed By: #### CMP ####[facility] [address]faciysbzu[address] [place] [address]Dr.Airam ChangOSMOLALITYon 07-24-8813Aleqhoxnsl [Osmolality]285 mosm/oiNcsosz644-923Yze [facility] CenterComment on above: Performed By: #### OSMO ####[facility] Xcocgqozfi[address] [place], [place] [address]Dr. Airam ChangCBC AUTO DIFFon 77-04-1159HSYR #0.0 103/ulNormal0.0-0.1The [facility] CenterComment on above:Performed By: #### CBC ####[facility] Fvpgnljagu[address] [place], [place] [address]Dr. Airam ChangBasophils/100 WBC (Bld)0.3 %Normal0.2-2.0The [facility] CenterComtr[facility] on above:Performed By: #### CBC ####[facility] Center [address] [place], [place] [address]Dr.Selenalan ChangEO #0.2 103/ulNormal0.0-0.7The [facility] CenterComment on above:Performed By: #### CBC ####[facility] Aydbmdzmed9[address] [place], [place] [address]Dr.Airam ChangEosinophils/100 WBC (Bld)2.7 %Normal0.9-7.0The [facility] on above:Performed By: #### CBC ####[facility] Yumazqhjij[address] [place], [place] [address]Dr.Airam ChangErythrocyte distribution width (RBC) [Ratio]14.4 %Normal 11.0-15.0The [facility] on above:Performed By: #### CBC ####[facility] Iyhpmdsunq62[address] [place], [place] [address]Dr. Airam ChangHematocrit (Bld) [Volume fraction]32.5 %Critically low36.0-48.0The [facility] CenterComment on above:Performed By: #### CBC ####[facility] Tpihwolrvn59[address] [place], [place] [address]Dr.Airam ChangHemoglobin (Bld) [Mass/Vol]10.1 g/dLCritically low12.0-16.0The [facility] CenterComment on above:Performed By: #### CBC ####[facility] Cgranvhsra[address] [place], [place] [address]DrBroderick TripathiIG #0.03 10e3/ulNormal0.00-0.03The [facility] CenterComment on above:Performed By: #### CBC ####[facility] Kxfkpzlvdj7332[address] [place], [place] [address]Dr.Airam Tripathi %0.4 %Normal 0.0-0.5The [facility] HospitalComment on above:Performed By: #### CBC ####[facility] Vjoeuajgyu360[address] [place], [place] [address]Dr.Airam TripathiMIDDLETOWN STATE HOSPITALH #1.4 103/ulNormal1.2-3.8The [facility] CenterComment on above:Performed By: #### CBC ####[facility] Vjylhwladz14[address] [place], [place] [address]Dr.Airam TripathiHudson Valley Hospitalhocytes/100 WBC (Bld)19.4 %Critically low20.5-60.0The [facility] CenterComment on above:Performed By: #### CBC ####[facility] Yhybgmwnah3532[address] [place], [place] [address]Dr.Airam TripathiALTAMONTUAL DIFF REQ NONormalThe [facility] CenterComment on above:Performed By: #### CBC ####[facility] Rcxseqbbje329[address] [place], [place] [address]Dr. Airam TripathiMEDISYS HEALTH NETWORK (RBC) [Entitic mass]30.6 prCaxqwn55.7-34.0The [facility] Comment on above:Performed By: #### CBC ####[facility] Ecfbwsmohl5420[address] [place], [place] [address]DrBroderick TripathiST. PETER'[facility] (RBC) [Mass/Vol]31.1 g/dL Ijersr77.9-35.2The [facility] CenterComment on above:Performed By: #### CBC ####[facility] Axuhssbzpl665[address] [place], [place] [address]Dr. Airam TripathiMCV (RBC) [Entitic vol]98.5 mNKkmagv81.0-99.0The [facility] Comment on above:Performed By: #### CBC ####[facility] Zaqylpauub00[address] [place], [place] [address]Dr.Airam TripathiMONO #0.5 103/ulNormal0.3-0.8 The [facility] CenterComment on above:Performed By: #### CBC ####[facility] Mninlzrjzg4847[address] [place], [place] [address]Dr.Airam Tripathi Monocytes/100 WBC (Bld)6.7 %Normal1.7-12.0The [facility] CenterComment on above: Performed By: #### CBC ####[facility] Ekorgyyorx5530[address] [place], [place] [address]Dr.Airam TripathiNEUT #5.2 103/ulNormal1.4-6.5The [facility] CenterComment on above:Performed By: #### CBC ####[facility] Pttzugaggb0359[address] [place], [place] [address]Dr.Airam TripathiNeutrophils/100 WBC (Bld)70.5 %Hydsch51.0-75.0The [facility] CenterComment on above:Performed By: #### CBC ####[facility] Gtzvwkafsx755[address] [place], [place] [address]Dr.Airam TripathiPlatelet mean volume (Bld) [Entitic vol]9.8 fLNormal9.5-13.5 The [facility] CenterComment on above:Performed By: #### CBC ####[facility] Gwdkdjpqpg8198[address] [place], [place] [address]Dr.Airam TripathiPLT277 103/jxOliqyn281-129Ntg [facility] CenterComment on above:Performed By: #### CBC ####[facility] Ovffuonidk073[address] [place], [place] [address]Dr. Airam TripathiRBC3.30 106/ulCritically low4.20-5.40The [facility] CenterComment on above:Performed By: #### CBC ####[facility] Glavmgdbgn2114[address] [place], [place] [address]Dr.Airam ChangWBC7.4 103/ulNormal4.0-11.0The [facility] CenterComment on above:Performed By: #### CBC ####[facility] Apxzoalfxm9526[address] [place], [place] [address]Dr.Airam ChangPROF 14(COMP METB)on [id number] [Mass/Vol]3.6 g/dLNormal3.4-5.0The [facility] Comment on above:Performed By: #### CMP ####[facility] Eupfboouzl494[address] [place], [place] [address]Dr.Airam TripathiAlbumin/Globulin [Mass ratio] 1.1 {ratio}NormalThe [facility] CenterComment on above:Performed By: #### CMP ####[facility] Zxdieerrmz3685[address] [place], [place] [address]Dr. Airam TripathiALP [Catalytic activity/Vol]112 U/LKuqyei86-268Ava [facility] Comment on above:Performed By: #### CMP ####[facility] Hlhjkhjtog6816[address] [place], [place] [address]Dr.Airam ChangALT [Catalytic activity/Vol]26 U/QNizsrr54-38Fyn [facility] CenterComment on above:Performed By: #### CMP ####[facility] Iigmjslkax6950[address] [place], [place] [address]Dr. Airam TripathiAnion gap [Moles/Vol]12.0 mmol/LNormalThe [facility] CenterComment on above:Performed By: #### CMP ####[facility] Texjvuzfia264[address] [place], [place] [address]Dr.Airam ChangAST [Catalytic activity/Vol]25 U/LNormal 15-37The [facility] CenterComment on above:Performed By: #### CMP ####[facility] Xdzsyzaxbr534[address] [place], [place] [address]Dr.Airam Tripathi Bilirubin [Mass/Vol]0.4 mg/dLNormal0.2-1.0The [facility] CenterComment on above: Performed By: #### CMP ####[facility] Uffvfbdgve0[address] [place] [id number].Yilan ChangCalcium [Mass/Vol]8.9 mg/dLNormal 8.5-10.1The [facility] CenterComment on above:Performed By: #### CMP ####[facility] Xtyylfhgzc[address] [place], [place] [address]Dr. Yilan ChangChloride [Moles/Vol]101 mmol/NKgonvq65-700Rwd [facility] Comment on above:Performed By: #### CMP ####[facility] Wrlohagxff7822[address] [place], [place] [address]Dr.Yilan ChangCO2 [Moles/Vol]24.0 mmol/L Tjjgxj78.0-32.0The [facility] CenterComment on above:Performed By: #### CMP ####[facility] Kzpjrxdxjn016[address] [place], [place] [address]Dr. Yilan ChangCreatinine [Mass/Vol]1.51 mg/dLCritically high0.55-1.02The [facility] CenterComment on above:Performed By: #### CMP ####[facility] Kohvksdtmx8[address] [place], [place] [address]Dr.Yilan ChangEGFR-AF KCGJDFNT44 mL/min/1.81x2Znasmnysbg low>=60The [facility] CenterComment on above: Performed By: #### CMP ####[facility] Pdcwvyfysg255[address] [place], [place] [address]Dr.Yilan ChangEGFR-NON AF ZKFZNXRB52 mL/min/1.73m2 Critically low>=60The [facility] CenterComment on above:Performed By: #### CMP ####[facility] Eedgbukrjc4349[address] [place], [place] [address]Dr. Yilan ChangGlobulin (S) [Mass/Vol]3.2 g/dLNormalThe [facility] CenterComment on above:Performed By: #### CMP ####[facility] Rqiavwgsnz7944[address] [place], [place] [address]Dr.Yilan ChangGlucose [Mass/Vol]82 mg/hSWxtvik44-141 The [facility] CenterComment on above:Performed By: #### CMP ####[facility] Rxxreqjjou26[address] [place] [address]Dr.Airam Tripathi Potassium [Moles/Vol]4.0 mmol/LNormal3.5-5.1The [facility] CenterComment on above:Performed By: #### CMP ####[facility] Nksnptcnuo39[address] [place], [place] [address]Dr.Airam ChangProtein [Mass/Vol]6.8 g/dLNormal6.4-8.2 The [facility] CenterComment on above:Performed By: #### CMP ####[facility] Lhujvtmyji9605[address] [place], [place] [address]Dr.Airam TripathiSodium [Moles/Vol]133 mmol/LCritically qmj591-843Hpk [facility] CenterComment on above:Performed By: #### CMP ####[facility] Uwacgzocap024[address] [place], [place] [address]Dr.Airam TripathiUrea nitrogen [Mass/Vol]37.0 mg/dL Critically high7.0-18.0The [facility] CenterComment on above:Performed By: #### CMP ####[facility] Ymlsmixkto477[address] [place], [place] [address]Dr. Airam ChangUrea nitrogen/Creatinine [Mass ratio]24.5 mg/mgNormalThe [facility] CenterComment on above:Performed By: #### CMP ####[facility] Evyzvgyxbv2960[address] [place], [place] [address]Dr.Airam DeuceOSMOLALITYon 63-78-9275Dgbkgfyfnj [Osmolality]284 mosm/esZsujsw751-180Gse [facility] Comment on above:Performed By: #### OSMO ####[facility] Xrqxnsuyrg7948[address] [place], [place] [address]Dr. Airam TripathiCBC AUTO DIFFon 03-04-2022 BASO #0.0 103/ulNormal0.0-0.1The [facility] CenterComment on above:Performed By: #### CBC ####[facility] Czfkkroywv1055[address] [place], [place] [address]Dr.Selenalan ChangBasophils/100 WBC (Bld)0.3 %Normal0.2-2.0The [facility] CenterComment on above:Performed By: #### CBC ####[facility] Svpkotvurt4757[address] [place], [place] [address]Dr.Yilan ChangEO #0.1 103/ul Normal0.0-0.7The [facility] CenterComment on above:Performed By: #### CBC ####[facility] Oufzcojwke9977[address] [place], [place] [address]Dr. Yilan ChangEosinophils/100 WBC (Bld)2.0 %Normal0.9-7.0The [facility] Comment on above:Performed By: #### CBC ####[facility] Gksbrxdaim7556[address] [place], [place] [address]Dr.Yilan ChangErythrocyte distribution width (RBC) [Ratio]14.5 %Mvxeos85.0-15.0The [facility] CenterComment on above: Performed By: #### CBC ####[facility] Qrdaqhrnec9616[address] [place], [place] [address]Dr.Yilan ChangHematocrit (Bld) [Volume fraction]35.4 % Critically low36.0-48.0The [facility] CenterComment on above:Performed By: #### CBC ####[facility] Xkdjircmoq3355[address] [place], [place] [address]Dr. Selenalan ChangHemoglobin (Bld) [Mass/Vol]11.0 g/dLCritically low12.0-16.0The [facility] CenterComment on above:Performed By: #### CBC ####[facility] Wrpitonxqv2118[address] [place], [place] [address]Dr.Yilan ChangIG #0.03 10e3/ulNormal0.00-0.03The [facility] CenterComment on above:Performed By: #### CBC ####[facility] Lrvjvnyoxu99[address] [place], [place] [address]Dr. Yilan ChangIG %0.4 %Normal0.0-0.5The [facility] CenterComment on above:Performed By: #### CBC ####[facility] Mt[address]rpqngt[address] [place] [address]Dr.Airam TripathiLYMPH #1.7 103/ulNormal1.2-3.8The [facility] Comment on above:Performed By: #### CBC ####[facility] Gijynqcmxv4[address] [place] [address]Dr.Airam TripathiLymphocytes/100 WBC (Bld)23.8 %Jtscwu89.5-60.0The [facility] CenterComment on above:Performed By: #### CBC ####[facility] Mxyjuqujfa4744[address] [place], [place] [address]Dr. Airam ChangMANUAL DIFF REQNONormalThe [facility] CenterComment on above: Performed By: #### CBC ####[facility] Lzixkqokxn7649[address] [place], [place] [address]Dr.Airam TripathiH (RBC) [Entitic mass]30.0 pgNormal 26.7-34.0The [facility] CenterComment on above:Performed By: #### CBC ####[facility] Plronspotk0168[address] [place], [place] [address]Dr. Airam TripathiMCHC (RBC) [Mass/Vol]31.1 g/yXKlfzxq00.9-35.2The [facility] Comment on above:Performed By: #### CBC ####[facility] Rdzzvdycll4385[address] [place], [place] [address]Dr.Airam TripathiMCV (RBC) [Entitic vol]96.5 fL Ezbhsb10.0-99.0The [facility] CenterComment on above:Performed By: #### CBC ####[facility] Xlunmejhqx[address] [place], [place] [address]Dr. Airam TripathiMONO #0.5 103/ulNormal0.3-0.8The [facility] CenterComment on above: Performed By: #### CBC ####[facility] Gpvitbbzwh7035[address] [place], [place] [address]Dr.Airam ChangMonocytes/100 WBC (Bld)6.6 %Normal 1.7-12.0The [facility] CenterComment on above:Performed By: #### CBC ####[facility] Icyhvcalye[address] [place] [address]Dr. Airam TripathiNEUT #4.7 103/ulNormal1.4-6.5The [facility] CenterComment on above: Performed By: #### CBC ####[facility] Ljrghgmbky9[address] [place] [address]Dr.Airam TripathiNeutrophils/100 WBC (Bld)66.9 %Normal 43.0-75.0The [facility] CenterComment on above:Performed By: #### CBC ####[facility] Gahoegwxkw5[address] [place] [address]Dr. Airam TripathiPlatelet mean volume (Bld) [Entitic vol]10.2 fLNormal9.5-13.5The [facility] on above:Performed By: #### CBC ####[facility] Nqjpoeaefr3299[address] [place], [place] [address]Dr.Airam TripathiPLT270 103/ul Pqqmhg078-956Ffm [facility] CenterComment on above:Performed By: #### CBC ####[facility] Ebaoognmrs766[address] [place], [place] [address]Dr. Selenaneil DeuceRBC3.67 106/ulCritically low4.20-5.40The [facility] on above:Performed By: #### CBC ####[facility] Msmbzhyste4416[address] [place], [place] [address]Dr.Selenaneil TripathiWBC7.0 103/ulNormal4.0-11.0The [facility] on above:Performed By: #### CBC ####[facility] Iwpjmfrbrk7036[address] [place], [place] [address]Dr.Airam DeucePROF 14(COMP METB)on 52-98-3737Swquitp [Mass/Vol]3.3 g/dLCritically low3.4-5.0The [facility] on above:Performed By: #### CMP ####[facility] Mdwtndbgyy022[address] [place], [place] [address]Dr.Airam Tripathi Albumin/Globulin [Mass ratio]1.0 {ratio}NormalThe [facility] HospitalComment on above:Performed By: #### CMP ####[facility] Rufjpoumkn34[address] [place] [address]Dr.Yilan ChangALP [Catalytic activity/Vol]107 U/L Efeqbg26-919Bie [facility] CenterComment on above:Performed By: #### CMP ####[facility] Bnshbrsapv30[address] [place] [address]Dr. Yilan ChangALT [Catalytic activity/Vol]23 U/FJrbgel09-30Uag [facility] Comment on above:Performed By: #### CMP ####[facility] Iucfqivnlv8340[address] [place], [place] [address]Dr.Yilan ChangAnion gap [Moles/Vol]13.0 mmol/LNormalThe [facility] CenterComment on above:Performed By: #### CMP ####[facility] Mwrybeihqn67[address] [place], [place] [address]Dr. Yilan ChangAST [Catalytic activity/Vol]30 U/DBbkqpm97-20Seq [facility] Comment on above:Performed By: #### CMP ####[facility] Vfbziyvabb8246[address] [place], [place] [address]Dr.Yilan ChangBilirubin [Mass/Vol]0.2 mg/dL Normal0.2-1.0The [facility] CenterComment on above:Performed By: #### CMP ####[facility] Gjmbpbbhdr6667[address] [place], [place] [address]Dr. Yilan ChangCalcium [Mass/Vol]8.8 mg/dLNormal8.5-10.1The [facility] CenterComment on above:Performed By: #### CMP ####[facility] Dwwcyyzpeo8923[address] [place], [place] [address]Dr.Yilan ChangChloride [Moles/Vol]103 mmol/LNormal 98-107The [facility] CenterComment on above:Performed By: #### CMP ####[facility] Ikwopndpxn299[address] [place], [place] [address]Dr.Yilan ChangCO2 [Moles/Vol]24.9 mmol/ZYrxwyp89.0-32.0The [facility] CenterComment on above: Performed By: #### CMP ####[facility] Lmajaebayg66[address] [place] [address]Dr.Yilan ChangCreatinine [Mass/Vol]1.06 mg/dL Critically high0.55-1.02The [facility] on above:Performed By: #### CMP ####[facility] Cfyxyzfxoo7324[address] [place], [place] [address]Dr.Yilan ChangEGFR-AF YEMENI>60Normal>=60The [facility] CenterComment on above:Performed By: #### CMP ####[facility] Aziidwjogr4149[address] [place], [place] [address]Dr.Yilan ChangEGFR-NON AF VPYGYNDW89 mL/min/1.73m2 Critically low>=60The [facility] on above:Performed By: #### CMP ####[facility] Wzvrnnpzjv9495[address] [place], [place] [address]Dr. Airam ChangGlobulin (S) [Mass/Vol]3.2 g/dLNormalThe [facility] CenterComtrinity [facility] on above:Performed By: #### CMP ####[facility] Czsvhtrncb6078[address] [place], [place] [address]Dr.Yilan ChangGlucose [Mass/Vol]91 mg/nTQxqcjw87-637 [facility] on above:Performed By: #### CMP ####[facility] Rryxensvlw5595[address] [place], [place] [address]Dr.Airam Tripathi Potassium [Moles/Vol]3.9 mmol/LNormal3.5-5.1The [facility] on above:Performed By: #### CMP ####[facility] Paqaddyscb0632[address] [place], [place] [address]Dr.Yilan ChangProtein [Mass/Vol]6.5 g/dLNormal6.4-8.2 The [facility] CenterComtrinity [facility] on above:Performed By: #### CMP ####[facility] Ergqduqyuz549[address] [place], [place] [address]Dr.Yilan ChangSodium [Moles/Vol]137 mmol/FUpazik456-574Eqd [facility] on above: Performed By: #### CMP ####[facility] Wacmedvlhc54[address] [place] [address]Dr.Airam ChangUrea nitrogen [Mass/Vol]27.0 mg/dL Critically high7.0-18.0The [facility] on above:Performed By: #### CMP ####[facility] Vbbfehxmey9264[address] [place], [place] [address]Dr. Selenalan ChangUrea nitrogen/Creatinine [Mass ratio]25.5 mg/mgNormalThe [facility] on above:Performed By: #### CMP ####[facility] Sjdcmstvjn2905[address] [place], [place] [address]Dr.Selenalan ChangOSMOLALITYon 01-84-2287Daxzyqblaa [Osmolality]383 mosm/kgInvalid Interpretation Cemb473-205 The [facility] on above:Result Comment: Verified by repeat analysisPerformed By: #### OSMO ####[facility] Ohjkxzybqa4160[address] [place], [place] [address]Dr. Airam ChangCBC AUTO DIFFon [id number] #0.0 103/ulNormal0.0-0.1The [facility] on above:Performed By: #### CBC ####[facility] Ymamqlylbd338[address] [place], [place] [address]Dr. Yilan ChangBasophils/100 WBC (Bld)0.4 %Normal0.2-2.0The [facility] on above:Performed By: #### CBC ####[facility] Ugivkzjcbk8726[address] [place], [place] [address]Dr.Yilan ChangEO #0.2 103/ulNormal0.0-0.7The [facility] on above:Performed By: #### CBC ####[facility] Quwmhdsymi149[address] [place], [place] [address]Dr.Selenalan ChangEosinophils/100 WBC (Bld)3.9 %Normal0.9-7.0The [facility] on above:Performed By: #### CBC ####[facility] Zkriinooqy2064[address] [place], [place] [address]Dr.Airam ChangErythrocyte distribution width (RBC) [Ratio]13.9 %Normal 11.0-15.0The [facility] CenterComment on above:Performed By: #### CBC ####[facility] Vdaavitfgu6296[address] [place], [place] [address]Dr. Airam ChangHematocrit (Bld) [Volume fraction]32.7 %Critically low36.0-48.0The [facility] HospitalComment on above:Performed By: #### CBC ####[facility] Ndcwguqiut547[address] [place], [place] [address]Dr.Selenaneil ChangHemoglobin (Bld) [Mass/Vol]10.7 g/dLCritically low12.0-16.0The [facility] CenterComment on above:Performed By: #### CBC ####[facility] Nzanlvrnkw245[address] [place], [place] [address]Dr.Selenaneil ChangIG #0.02 10e3/ulNormal0.00-0.03The [facility] CenterComment on above:Performed By: #### CBC ####[facility] Buxqajeowh8384[address] [place], [place] [address]Dr.Selenaneil ChangIG %0.4 %Normal 0.0-0.5The [facility] CenterComment on above:Performed By: #### CBC ####[facility] Afimkpbnhc5324[address] [place], [place] [address]Dr.Airam ChangLYMPH #1.2 103/ulNormal1.2-3.8The [facility] CenterComment on above:Performed By: #### CBC ####[facility] Nxlhshzopz80[address] [place], [place] [address]Dr.Selenaneil ChangLymphocytes/100 WBC (Bld)25.0 %Jomdev00.5-60.0The [facility] CenterComment on above:Performed By: #### CBC ####[facility] Uidwxukwgk9796[address] [place], [place] [address]Dr.Selenaneil DeuceMANUAL DIFF REQ NONormalThe [facility] CenterComment on above:Performed By: #### CBC ####[facility] Fmmjelxitm13[address] [place] [address]Dr. Airam TripathiH (RBC) [Entitic mass]30.7 lvPfajoe47.7-34.0The [facility] Comment on above:Performed By: #### CBC ####[facility] Vnuaejnfoq6005[address] [place], [place] [address]Dr.Airam TripathiMCHC (RBC) [Mass/Vol]32.7 g/dL Tquekp08.9-35.2The [facility] CenterComment on above:Performed By: #### CBC ####[facility] Svdiomhupr4669[address] [place], [place] [address]Dr. Airam TripathiMCV (RBC) [Entitic vol]93.7 gXZyxgnd19.0-99.0The [facility] Comment on above:Performed By: #### CBC ####[facility] Gcjhyoobnv4030[address] [place], [place] [address]Dr.Airam TripathiMONO #0.4 103/ulNormal0.3-0.8 The [facility] CenterComment on above:Performed By: #### CBC ####[facility] Wpzshkdvdh4094[address] [place], [place] [address]Dr.Airam Tripathi Monocytes/100 WBC (Bld)7.5 %Normal1.7-12.0The [facility] CenterComment on above: Performed By: #### CBC ####[facility] Svljpuaxkd8114[address] [place], [place] [address]Dr.Airam TripathiNEUT #3.1 103/ulNormal1.4-6.5The [facility] CenterComment on above:Performed By: #### CBC ####[facility] Qjbluxxrmp4696[address] [place], [place] [address]Dr.Airam TripathiNeutrophils/100 WBC (Bld)62.8 %Yklcrn20.0-75.0The [facility] CenterComment on above:Performed By: #### CBC ####[facility] Msbmozplpz3784[address] [place], [place] [address]Dr.Airam TripathiPlatelet mean volume (Bld) [Entitic vol]9.5 fLNormal9.5-13.5 The [facility] CenterComment on above:Performed By: #### CBC ####[facility] Uniumoegxa4[address] [place] [address]Dr.Airam TripathiPLT250 103/ljYhsgap583-850Ogq [facility] CenterComment on above:Performed By: #### CBC ####[facility] Uuokbalutb2488[address] [place], [place] [address]Dr. Airam TripathiRBC3.49 106/ulCritically low4.20-5.40The [facility] CenterComment on above:Performed By: #### CBC ####[facility] Oqwdfpmpdp5904[address] [place], [place] [address]Dr.Airam TripathiWBC4.9 103/ulNormal4.0-11.0The [facility] CenterComment on above:Performed By: #### CBC ####[facility] Ghahandvro20[address] [place], [place] [address]Dr.Airam TripathiPROF 14(COMP METB)on 67-57-4553Dzlvivc [Mass/Vol]3.3 g/dLCritically low3.4-5.0The [facility] CenterComment on above:Performed By: #### CMP ####[facility] Lpftwjsaho84[address] [place], [place] [address]Dr.Airam Tripathi Albumin/Globulin [Mass ratio]1.0 {ratio}NormalThe [facility] CenterComment on above:Performed By: #### CMP ####[facility] Fkdkhrltva40[address] [place], [place] [address]Dr.Airam TripathiALP [Catalytic activity/Vol]127 U/L Critically mani26-524Nyr [facility] CenterComment on above:Performed By: #### CMP ####[facility] Dumepnnqgj[address] [place], [place] [address]Dr. Airam TripathiALT [Catalytic activity/Vol]22 U/VEsigfc57-76Jci [facility] Comment on above:Performed By: #### CMP ####[facility] Ncjowwzamr362133 [address] [place], [place] [address]Dr.Yilan ChangAnion gap [Moles/Vol]11.9 mmol/LNormalThe [facility] CenterComment on above:Performed By: #### CMP ####[facility] Zpcggszsdx77[address] [place], [place] [address]Dr. Selenaneil ChangAST [Catalytic activity/Vol]21 U/VViclnn66-51Qli [facility] Comment on above:Performed By: #### CMP ####[facility] Kqnhkcbkqw62[address] [place], [place] [address]Dr.Airam ChangBilirubin [Mass/Vol]0.3 mg/dL Normal0.2-1.0The [facility] CenterComment on above:Performed By: #### CMP ####[facility] Qzwxnfxewr7475[address] [place], [place] [address]Dr. Airam ChangCalcium [Mass/Vol]8.6 mg/dLNormal8.5-10.1The [facility] CenterComment on above:Performed By: #### CMP ####[facility] Rkhbpdpglc1780[address] [place], [place] [address]Dr.Airam ChangChloride [Moles/Vol]105 mmol/LNormal 98-107The [facility] CenterComment on above:Performed By: #### CMP ####[facility] Grkxokknna37[address] [place], [place] [address]Dr.Airam ChangCO2 [Moles/Vol]23.6 mmol/KQbznqk81.0-32.0The [facility] CenterComment on above: Performed By: #### CMP ####[facility] Rpikivzate[address] [place], [place] [address]Dr.Airam ChangCreatinine [Mass/Vol]1.29 mg/dL Critically high0.55-1.02The [facility] CenterComment on above:Performed By: #### CMP ####[facility] Adochlokff[address] [place], [place] [address]Dr.Airam ChangEGFR-AF OWFHTBXT01 mL/min/1.37x4Uadynjueez low>=60The [facility] CenterComment on above:Performed By: #### CMP ####[facility] Gbzahgqmyz029[address] [place], [place] [address]Dr.Yilan ChangEGFR-NON AF ECFAMPWK32 mL/min/1.74g7Wfkiyqtmdj low>=60The [facility] CenterComment on above: Performed By: #### CMP ####[facility] Jwwbvnyalb8878[address] [place], [place] [address]Dr.Yilan ChangGlobulin (S) [Mass/Vol]3.2 g/dLNormWhite HospitalComment on above:Performed By: #### CMP ####[facility] Wxbtnaamgy308[address] [place], [place] [address]Dr.Yilan ChangGlucose [Mass/Vol]94 mg/fQTaddlc35-558Yhw [facility] CenterComment on above:Performed By: #### CMP ####[facility] Rkuqxteqwg8277[address] [place], [place] [address]Dr.Yilan ChangPotassium [Moles/Vol]3.5 mmol/LNormal3.5-5.1The [facility] CenterComment on above:Performed By: #### CMP ####[facility] Jrbrzvmvag7170[address] [place], [place] [address]Dr.Yilan ChangProtein [Mass/Vol]6.5 g/dLNormal6.4-8.2The [facility] CenterComment on above:Performed By: #### CMP ####[facility] Ikkucpbyol64[address] [place], [place] [address]Dr.Yilan ChangSodium [Moles/Vol]137 mmol/IOejwip533-735Hvi [facility] CenterComment on above:Performed By: #### CMP ####[facility] Bcwetrymrh2160[address] [place], [place] [address]Dr.Yilan ChangUrea nitrogen [Mass/Vol]37.0 mg/dLCritically high7.0-18.0The [facility] CenterComment on above:Performed By: #### CMP ####[facility] Lrzlfdoafw458[address] [place], [place] [address]Dr.Yilan ChangUrea nitrogen/Creatinine [Mass ratio] 28.7 mg/mgNoGlenbeigh HospitalComment on above:Performed By: #### CMP ####[facility] Ngddxewbtf[address] [place] [address]Dr. Airam TripathiOSMOLALITYon 88-28-1645Xsbmpgzevg [Osmolality]283 mosm/kgNormal 275-295The [facility] CenterComment on above:Performed By: #### OSMO ####[facility] Qrsohouuuy1436[address] [place], [place] [address]Dr. Airam TripathiCBC AUTO DIFFon [id number] #0.0 103/ulNormal0.0-0.1The [facility] CenterComment on above:Performed By: #### CBC ####[facility] Gkcnjfzufv2938[address] [place], [place] [address]Dr.Selenaneil DeuceBasophils/100 WBC (Bld)0.3 %Normal0.2-2.0The [facility] on above:Performed By: #### CBC ####[facility] Sowkntswxf1415[address] [place], [place] [address]Dr.Selenalan ChangEO #0.1 103/ulNormal0.0-0.7The [facility] Hospitalment on above:Performed By: #### CBC ####[facility] Xpyfqyagop9388[address] [place], [place] [address]Dr.Selenaneil ChangEosinophils/100 WBC (Bld)1.6 %Normal 0.9-7.0The [facility] on above:Performed By: #### CBC ####[facility] Rojpgfnbpq14[address] [place], [place] [address]Dr.Airam Tripathi Erythrocyte distribution width (RBC) [Ratio]13.4 %Qunifi68.0-15.0The [facility] Hospitalment on above:Performed By: #### CBC ####[facility] Yoylfabsvf2277[address] [place], [place] [address]Dr.Airam TripathiHematocrit (Bld) [Volume fraction]31.4 %Critically low36.0-48.0The [facility] Hospitalment on above:Performed By: #### CBC ####[facility] Zmbntcqelx3548[address] [place], [place] [address]Dr.Airam TripathiHemoglobin (Bld) [Mass/Vol]10.0 g/dL Critically low12.0-16.0The [facility] CenterComment on above:Performed By: #### CBC ####[facility] Rbwepsnzpw5637[address] [place], [place] [address]DrKianna TripathiIG #0.03 10e3/ulNormal0.00-0.03The [facility] CenterComment on above: Performed By: #### CBC ####[facility] Vtjlvegqqh1064[address] [place], [place] [address]Dr.Airam TripathiIG %0.4 %Normal0.0-0.5The [facility] CenterComment on above:Performed By: #### CBC ####[facility] Yxskllasxr0622[address] [place], [place] [address]Dr.Airam TripathiMIDDLETOWN STATE HOSPITALH #1.6 103/ulNormal1.2-3.8The [facility] CenterComment on above:Performed By: #### CBC ####[facility] Wuqdqjyfdp9159[address] [place], [place] [address]Dr. Airam Dosshocytes/100 WBC (Bld)24.5 %Cjhwxd66.5-60.0The [facility] Comment on above:Performed By: #### CBC ####[facility] Dhcxhdsitw6160[address] [place], [place] [address]Dr.Airam TripathiMANUAL DIFF REQNONormalThe [facility] CenterComment on above:Performed By: #### CBC ####[facility] Uzzmmevrad208[address] [place], [place] [address]Dr.Airam TripathiMEDISYS HEALTH NETWORK (RBC) [Entitic mass]30.2 luPkrnnm07.7-34.0The [facility] CenterComment on above: Performed By: #### CBC ####[facility] Cuhqrlwoes2623[address] [place], [place] [address]Dr.Airam TripathiST. PETER'S [facility] (RBC) [Mass/Vol]31.8 g/dLNormal 29.9-35.2The [facility] CenterComment on above:Performed By: #### CBC ####[facility] Ptxrfnqimf1724[address] [place], [place] [address]Dr. Airam TripathiMCV (RBC) [Entitic vol]94.9 bGSdnqdn89.0-99.0The [facility] Comment on above:Performed By: #### CBC ####[facility] Ermazpojbr3670[address] [place], [place] [address]Dr.Airam TripathiMONO #0.4 103/ulNormal0.3-0.8 The [facility] CenterComment on above:Performed By: #### CBC ####[facility] Vekovfifwj9917[address] [place], [place] [address]Dr.Airam Tripathi Monocytes/100 WBC (Bld)5.8 %Normal1.7-12.0The [facility] CenterComment on above: Performed By: #### CBC ####[facility] Riuepejpwb5564[address] [place], [place] [address]Dr.Airam TripathiNEUT #4.5 103/ulNormal1.4-6.5The [facility] CenterComment on above:Performed By: #### CBC ####[facility] Fbqyyssrox175[address] [place], [place] [address]Dr.Airam TripathiNeutrophils/100 WBC (Bld)67.4 %Brylwp78.0-75.0The [facility] CenterComment on above:Performed By: #### CBC ####[facility] Hrydqzbjsp549[address] [place], [place] [address]Dr.Airam TripathiPlatelet mean volume (Bld) [Entitic vol]9.6 fLNormal9.5-13.5 The [facility] CenterComment on above:Performed By: #### CBC ####[facility] Syuyanywaw7537[address] [place], [place] [address]Dr.Airam TripathiPLT251 103/ytYnmrkt907-738Nla [facility] CenterComment on above:Performed By: #### CBC ####[facility] Aduidexmor0894[address] [place], [place] [address]Dr. Airam TripathiRBC3.31 106/ulCritically low4.20-5.40The [facility] CenterComment on above:Performed By: #### CBC ####[facility] Swkxidsclb6024[address] [place], [place] [address]Dr.Airam ChangWBC6.7 103/ulNormal4.0-11.0The [facility] CenterComment on above:Performed By: #### CBC ####[facility] [address] [place] [address]Dr.Airam ChangPROF 14(COMP METB)on 37-22-1857Zhbmvos [Mass/Vol]3.5 g/dLNormal3.4-5.0The [facility] Comment on above:Performed By: #### CMP ####[facility] Gfyxxomanq42[address] [place] [address]Dr.Selenaneil ChangAlbumin/Globulin [Mass ratio] 1.2 {ratio}NormalThe [facility] CenterComment on above:Performed By: #### CMP ####[facility] Ycgmikwpkw4865[address] [place], [place] [address]Dr. Airam ChangALP [Catalytic activity/Vol]130 U/LCritically mxzw23-679Dil [facility] CenterComment on above:Performed By: #### CMP ####[facility] Ebfgxyghyi614[address] [place], [place] [address]Dr.Yineil ChangALT [Catalytic activity/Vol]18 U/JLtsrlg00-44Bkn [facility] CenterComment on above:Performed By: #### CMP ####[facility] Pzvogaxmbb4267[address] [place], [place] [address]Dr.Airam ChangAnion gap [Moles/Vol]14.0 mmol/LNormalThe [facility] Comment on above:Performed By: #### CMP ####[facility] Xaxvmidhte0808[address] [place], [place] [address]Dr.Yilan ChangAST [Catalytic activity/Vol]20 U/XAvvtkd78-63Xvs [facility] CenterComment on above:Performed By: #### CMP ####[facility] Czmmkebroc9596[address] [place], [place] [address]Dr. Airam ChangBilirubin [Mass/Vol]0.3 mg/dLNormal0.2-1.0The [facility] Comment on above:Performed By: #### CMP ####[facility] Smvycatvlw38[address] [place] [address]Dr.Yilan ChangCalcium [Mass/Vol]8.5 mg/dL Normal8.5-10.1The [facility] CenterComment on above:Performed By: #### CMP ####[facility] Wqjlbuolva8014[address] [place], [place] [address]Dr. Yilan ChangChloride [Moles/Vol]100 mmol/QUbceaq67-575Hrj [facility] Comment on above:Performed By: #### CMP ####[facility] Suumhrdknu6379[address] [place], [place] [address]Dr.Yilan ChangCO2 [Moles/Vol]22.7 mmol/L Sbhixa49.0-32.0The [facility] CenterComment on above:Performed By: #### CMP ####[facility] Hvlrxaytgt1775[address] [place], [place] [address]Dr. Yilan ChangCreatinine [Mass/Vol]1.28 mg/dLCritically high0.55-1.02The [facility] CenterComment on above:Performed By: #### CMP ####[facility] Hutnccdskd[address] [place], [place] [address]Dr.Yilan ChangEGFR-AF SOVMJWZR74 mL/min/1.46i1Gxqgmngrah low>=60The [facility] CenterComment on above: Performed By: #### CMP ####[facility] Azkucdnhdd362[address] [place], [place] [address]Dr.Yilan ChangEGFR-NON AF IZVSCLNN83 mL/min/1.73m2 Critically low>=60The [facility] CenterComment on above:Performed By: #### CMP ####[facility] Gfowwnkpze838[address] [place], [place] [address]Dr. Yilan ChangGlobulin (S) [Mass/Vol]2.9 g/dLNormalThe [facility] CenterComment on above:Performed By: #### CMP ####[facility] Vnlioewajn995[address] [place], [place] [address]Dr.Yilan ChangGlucose [Mass/Vol]93 mg/vCJxynau29-384 The [facility] CenterComment on above:Performed By: #### CMP ####[facility] [address]zkqas[address] [place] [address]Dr.Airam Tripathi Potassium [Moles/Vol]3.7 mmol/LNormal3.5-5.1The [facility] CenterComment on above:Performed By: #### CMP ####[facility] Derohasddx598[address] [place], [place] [address]Dr.Airam ChangProtein [Mass/Vol]6.4 g/dLNormal6.4-8.2 The [facility] CenterComment on above:Performed By: #### CMP ####[facility] Jzkndsvrqx978[address] [place], [place] [address]Dr.Airam ChangSodium [Moles/Vol]133 mmol/LCritically ecg816-254Una [facility] CenterComment on above:Performed By: #### CMP ####[facility] Fsdvyjodhb418[address] [place], [place] [address]Dr.Airam TripathiUrea nitrogen [Mass/Vol]44.0 mg/dL Critically high7.0-18.0The [facility] CenterComment on above:Performed By: #### CMP ####[facility] Brnrzreccw257[address] [place], [place] [address]Dr. Airam ChangUrea nitrogen/Creatinine [Mass ratio]34.4 mg/mgNormalThe [facility] CenterComment on above:Performed By: #### CMP ####[facility] Vxvzvpiqxu[address] [place], [place] [address]Dr.Airam TripathiOSMOLALITYon 00-33-7738Dpydwdwnai [Osmolality]288 mosm/vtUxlxbj881-656Utm [facility] Comment on above:Performed By: #### OSMO ####[facility] Igomklldyg4757[address] [place], [place] [address]Dr. Airam TripathiCBC AUTO DIFFon 02-08-2022 BASO #0.0 103/ulNormal0.0-0.1The [facility] CenterComment on above:Performed By: #### CBC ####[facility] Jkmfbhnczc325[address] [place], [place] [address]Dr.Airam ChangBasophils/100 WBC (Bld)0.3 %Normal0.2-2.0The [facility] CenterComment on above:Performed By: #### CBC ####[facility] Krnqrsvqsv566[address] [place], [place] [address]Dr.Yilan ChangEO #0.2 103/ul Normal0.0-0.7The [facility] CenterComment on above:Performed By: #### CBC ####[facility] Uuxvdektce7038[address] [place], [place] [address]Dr. Selenalan ChangEosinophils/100 WBC (Bld)2.1 %Normal0.9-7.0The [facility] Comment on above:Performed By: #### CBC ####[facility] Eifhhehpwb057[address] [place], [place] [address]Dr.Airam ChangErythrocyte distribution width (RBC) [Ratio]13.4 %Kaofka42.0-15.0The [facility] CenterComment on above: Performed By: #### CBC ####[facility] Ihznftdjyn694[address] [place], [place] [address]Dr.Airam ChangHematocrit (Bld) [Volume fraction]35.1 % Critically low36.0-48.0The [facility] CenterComment on above:Performed By: #### CBC ####[facility] Ejrcjrclqd2727[address] [place], [place] [address]Dr. Airam ChangHemoglobin (Bld) [Mass/Vol]10.9 g/dLCritically low12.0-16.0The [facility] CenterComment on above:Performed By: #### CBC ####[facility] Ettdkgncrn[address] [place], [place] [address]Dr.Airam ChangIG #0.03 10e3/ulNormal0.00-0.03The [facility] CenterComment on above:Performed By: #### CBC ####[facility] Tgmoqlwzcw2268[address] [place], [place] [address]Dr. Selenalan ChangIG %0.3 %Normal0.0-0.5The [facility] CenterComment on above:Performed By: #### CBC ####[facility] Xquwifbrtp457[address] [place], [place] [address]Dr.Airam TripathiLYMPH #1.3 103/ulNormal1.2-3.8The [facility] Comment on above:Performed By: #### CBC ####[facility] [address]jnmh[address] [place] [address]Dr.Airam TripathiLymphocytes/100 WBC (Bld)13.1 %Critically low20.5-60.0The [facility] CenterComment on above:Performed By: #### CBC ####[facility] Imsexseqhh59[address] [place] [address]Dr.Airam TripathiMANUAL DIFF REQNONormalThe [facility] CenterComment on above: Performed By: #### CBC ####[facility] Kjirneuung[address] [place] [address]Dr.Airam TripathiH (RBC) [Entitic mass]30.4 pgNormal 26.7-34.0The [facility] CenterComment on above:Performed By: #### CBC ####[facility] Vpadqonpff35[address] [place] [address]Dr. Airam TripathiHC (RBC) [Mass/Vol]31.1 g/cMMkknef53.9-35.2The [facility] Comment on above:Performed By: #### CBC ####[facility] Jegndtxatz[address] [place] [address]Dr.Airam TripathiMCV (RBC) [Entitic vol]98.0 fL Cmqsjf88.0-99.0The [facility] CenterComment on above:Performed By: #### CBC ####[facility] Mdfjdyskxn6[address] [place] [address]Dr. Airam TripathiMONO #0.5 103/ulNormal0.3-0.8The [facility] CenterComment on above: Performed By: #### CBC ####[facility] Yifsidsdur39[address] [place] [address]Dr.Airam ChangMonocytes/100 WBC (Bld)4.7 %Normal 1.7-12.0The [facility] CenterComment on above:Performed By: #### CBC ####[facility] Vvtmrzhytu24[address] [place] [address]Dr. Airam TripathiNEUT #7.7 103/ulCritically high1.4-6.5The [facility] CenterComment on above:Performed By: #### CBC ####[facility] Pycxezoosi54[address] [place] [address]Dr.Airam TripathiNeutrophils/100 WBC (Bld)79.5 % Critically high43.0-75.0The [facility] CenterComment on above:Performed By: #### CBC ####[facility] Irvwpvobwc6954 [place] [address]Dr. Airam TripathiPlatelet mean volume (Bld) [Entitic vol]9.6 fLNormal9.5-13.5The [facility] CenterComment on above:Performed By: #### CBC ####[facility] Jogrcqhusi[address] [place] [address]Dr.Airam ZhzudRCS684 103/ul Sahkvq899-474Ajm [facility] CenterComment on above:Performed By: #### CBC ####[facility] Dizyfbjszy8[address] [place] [address]Dr. Airam ChangRBC3.58 106/ulCritically low4.20-5.40The [facility] CenterComment on above:Performed By: #### CBC ####[facility] Fzltfgqsan30[address] [place] [address]Dr.Airam ChangWBC9.7 103/ulNormal4.0-11.0The [facility] CenterComment on above:Performed By: #### CBC ####[facility] Lpjvcnwveb[address] [place], [place] [address]Dr.Selenaneil ChangPROF 14(COMP METB)on 55-18-1879Jdgxvsj [Mass/Vol]3.6 g/dLNormal3.4-5.0The [facility] Comment on above:Performed By: #### CMP ####[facility] Eneztwvxey1665[address] [place], [place] [address]Dr.Airam TripathiAlbumin/Globulin [Mass ratio] 1.1 {ratio}NormalThe [facility] CenterComment on above:Performed By: #### CMP ####[facility] Wuehsbruxw[address] [place] [address]Dr. Yilan ChangALP [Catalytic activity/Vol]131 U/LCritically hteb93-114Jaq [facility] CenterComment on above:Performed By: #### CMP ####[facility] Qjjckvjlos66[address] [place] [address]Dr.Yilan ChangALT [Catalytic activity/Vol]22 U/PXpyjdj02-94Mom [facility] CenterComment on above:Performed By: #### CMP ####[facility] Gckvgmtipv8[address] [place] [address]Dr.Yilan ChangAnion gap [Moles/Vol]13.3 mmol/LNormalThe [facility] Comment on above:Performed By: #### CMP ####[facility] Ygpvfpvrox8817[address] [place], [place] [address]Dr.Yilan ChangAST [Catalytic activity/Vol]23 U/NPeqrok90-96Ytw [facility] CenterComment on above:Performed By: #### CMP ####[facility] Uerawcykcx201[address] [place], [place] [address]Dr. Yilan ChangBilirubin [Mass/Vol]0.3 mg/dLNormal0.2-1.0The [facility] Comment on above:Performed By: #### CMP ####[facility] Owumcfxivo4074[address] [place], [place] [address]Dr.Yilan ChangCalcium [Mass/Vol]8.7 mg/dL Normal8.5-10.1The [facility] CenterComment on above:Performed By: #### CMP ####[facility] Wdmfnsihfh5[address] [place] [address]Dr. Yilan ChangChloride [Moles/Vol]104 mmol/SBqtuhe31-485Uhc [facility] Comment on above:Performed By: #### CMP ####[facility] Aenjhwptex[address] [place] [id number].Yilan ChangCO2 [Moles/Vol]22.0 mmol/L Awumwx85.0-32.0The [facility] CenterComment on above:Performed By: #### CMP ####[facility] Oyowleswdp[address] [place] [address]Dr. Airam ChangCreatinine [Mass/Vol]1.20 mg/dLCritically high0.55-1.02The [facility] on above:Performed By: #### CMP ####[facility] Xkfjkikolc[address] [place] [address]Dr.Yilan ChangEGFR-AF RAJYIILY92 mL/min/1.22s6Msqicdzsrt low>=60The [facility] CenterComtr[facility] on above: Performed By: #### CMP ####[facility] Foikapmjgx104[address] [place], [place] [address]Dr.Yilan ChangEGFR-NON AF ZHRTUZDP54 mL/min/1.73m2 Critically low>=60The [facility] on above:Performed By: #### CMP ####[facility] Mgtdmfxrfr0867[address] [place], [place] [address]Dr. Airam ChangGlobulin (S) [Mass/Vol]3.2 g/dLNormalThOhioHealth Shelby HospitalComtrinity health [facility] on above:Performed By: #### CMP ####[facility] Ustjnrvhcd5560[address] [place], [place] [address]Dr.Yilan ChangGlucose [Mass/Vol]98 mg/mTDwfrvh44-628 [facility] on above:Performed By: #### CMP ####[facility] Nuibzoqryn2815[address] [place], [place] [address]Dr.Airam Tripathi Potassium [Moles/Vol]4.3 mmol/LNormal3.5-5.1[facility] on above:Performed By: #### CMP ####[facility] Biqlkrhasl293[address] [place], [place] [address]Dr.Yilan ChangProtein [Mass/Vol]6.8 g/dLNormal6.4-8.2 [facility] on above:Performed By: #### CMP ####[facility] Xuqogaxodn127[address] [place], [place] [address]Dr.Yilan ChangSodium [Moles/Vol]135 mmol/LCritically vxg927-885Cwb [facility] CenterComment on above:Performed By: #### CMP ####[facility] Ixphlpofan[address] [place], [place] [address]Dr.Selenalan ChangUrea nitrogen [Mass/Vol]33.0 mg/dL Critically high7.0-18.0The [facility] CenterComment on above:Performed By: #### CMP ####[facility] Tewqycladj0850[address] [place], [place] [address]Dr. Yilan ChangUrea nitrogen/Creatinine [Mass ratio]27.5 mg/mgNormalThe [facility] CenterComment on above:Performed By: #### CMP ####[facility] Yzhzsfmdkt5514[address] [place], [place] [address]Dr.Selenalan ChangOSMOLALITYon 57-04-9644Jzezjmbdyj [Osmolality]299 mosm/kgCritically jbmx732-805Pnq [facility] CenterComment on above:Performed By: #### OSMO ####[facility] Umhxqfphqo50[address] [place], [place] [address]Dr. Yilan ChangCBC AUTO DIFF on 33-98-3428JDMS #0.0 103/ulNormal0.0-0.1The [facility] CenterComment on above: Performed By: #### CBC ####[facility] Fnhpmnmgqe2548[address] [place], [place] [address]Dr.Yilan ChangBasophils/100 WBC (Bld)0.4 %Normal 0.2-2.0The [facility] CenterComment on above:Performed By: #### CBC ####[facility] Jpdxtlaosu3815[address] [place], [place] [address]Dr.Yilan ChangEO # 0.3 103/ulNormal0.0-0.7The [facility] CenterComment on above:Performed By: #### CBC ####[facility] Lfjwnqtsnb20[address] [place], [place] [address]Dr. Yilan ChangEosinophils/100 WBC (Bld)3.6 %Normal0.9-7.0The [facility] Comment on above:Performed By: #### CBC ####[facility] Czrbzqiwjh9[address] [place], [place] [address]Dr.Selenaneil ChangErythrocyte distribution width (RBC) [Ratio]13.2 %Ikexmd21.0-15.0The [facility] CenterComment on above: Performed By: #### CBC ####[facility] Zihqsrvxcb3[address] [place], [place] [address]Dr.Selenaneil ChangHematocrit (Bld) [Volume fraction]32.0 % Critically low36.0-48.0The [facility] HospitalComment on above:Performed By: #### CBC ####[facility] Bhdnbmfpie9[address] [place], [place] [address]Dr. Selenaneil ChangHemoglobin (Bld) [Mass/Vol]9.8 g/dLCritically low12.0-16.0The [facility] CenterComment on above:Performed By: #### CBC ####[facility] Rbgzgtupzb06[address] [place], [place] [address]Dr.Yilan ChangIG #0.03 10e3/ulNormal0.00-0.03The [facility] CenterComment on above:Performed By: #### CBC ####[facility] Mekwdkwgcn0[address] [place], [place] [address]Dr. Airam ChangIG %0.4 %Normal0.0-0.5The [facility] CenterComment on above:Performed By: #### CBC ####[facility] Sdkuvljicq4095[address] [address] [place], [place] [address]Dr.Selenalan ChangLYMPH #1.7 103/ulNormal1.2-3.8[facility] Comment on above:Performed By: #### CBC ####[facility] Dbozculeoc[address] [place], [place] [address]Dr.Selenaneil TripathiLymphocytes/100 WBC (Bld)24.8 %Tvdoeg58.5-60.0The [facility] CenterComment on above:Performed By: #### CBC ####[facility] Uchzowdifv[address] [place], [place] [address]Dr. Selenalan ChangMANUAL DIFF REQNONormalThe [facility] CenterComment on above: Performed By: #### CBC ####[facility] [address] [place] [address]Dr.Airam TripathiH (RBC) [Entitic mass]29.6 pgNormal 26.7-34.0The [facility] CenterComment on above:Performed By: #### CBC ####[facility] [address] [place] [address]Dr. Airam TripathiHC (RBC) [Mass/Vol]30.6 g/lCVwcuwt27.9-35.2[facility] Comment on above:Performed By: #### CBC ####[facility] Fwrqjbwucl17[address] [place], [place] [address]Dr.Selenaneil TripathiMCV (RBC) [Entitic vol]96.7 fL Xasplp18.0-99.0The [facility] CenterComment on above:Performed By: #### CBC ####[facility] Kqnwdqowro4460[address] [place], [place] [address]Dr. Airam DeuceMONO #0.4 103/ulNormal0.3-0.8The [facility] CenterComment on above: Performed By: #### CBC ####[facility] Cwwxkfxxhw6199[address] [place], [place] [address]Dr.Selenaneil TripathiMonocytes/100 WBC (Bld)6.3 %Normal 1.7-12.0The [facility] CenterComment on above:Performed By: #### CBC ####[facility] Jcgrzjuvlb027[address] [place], [place] [address]Dr. Airam DeuceNEUT #4.5 103/ulNormal1.4-6.5The [facility] CenterComment on above: Performed By: #### CBC ####[facility] Horufporoa80[address] [place], [place] [address]Dr.Selenaneil TripathiNeutrophils/100 WBC (Bld)64.5 %Normal 43.0-75.0The [facility] CenterComment on above:Performed By: #### CBC ####[facility] Solaxcccdt1712[address] [place], [place] [address]Dr. Airam DeucePlatelet mean volume (Bld) [Entitic vol]9.3 fLCritically low9.5-13.5 The [facility] CenterComment on above:Performed By: #### CBC ####[facility] [address]west[address] [place] [address]Dr.Airam TripathiPLT243 103/kpLvluiz763-955Rol [facility] CenterComment on above:Performed By: #### CBC ####[facility] Gsdjbjlkuj5136[address] [place], [place] [address]Dr. Airam TripathiRBC3.31 106/ulCritically low4.20-5.40The [facility] CenterComment on above:Performed By: #### CBC ####[facility] Bttadpbysn7185[address] [place], [place] [address]Dr.Airam TripathiWBC7.0 103/ulNormal4.0-11.0The [facility] CenterComment on above:Performed By: #### CBC ####[facility] Xhqzwqjynd4205[address] [place], [place] [address]Dr.Airam TripathiPROF 14(COMP METB)on 37-32-4335Qowbxjl [Mass/Vol]3.3 g/dLCritically low3.4-5.0The [facility] CenterComment on above:Performed By: #### CMP ####[facility] Ioagureaoz[address] [place], [place] [address]Dr.Airam Tripathi Albumin/Globulin [Mass ratio]1.1 {ratio}NormalThe [facility] CenterComment on above:Performed By: #### CMP ####[facility] Odhstuvgdc0169[address] [place], [place] [address]Dr.Airam TripathiALP [Catalytic activity/Vol]126 U/L Critically qwji54-455Jiq [facility] CenterComment on above:Performed By: #### CMP ####[facility] Uwkboequvg2578[address] [place], [place] [address]Dr. Airam TripathiALT [Catalytic activity/Vol]21 U/NKcnpwy96-12Lww [facility] Comment on above:Performed By: #### CMP ####[facility] Yrgnqwercd179[address] [place], [place] [address]Dr.Airam TripathiAnion gap [Moles/Vol]11.8 mmol/LNormalThe [facility] CenterComment on above:Performed By: #### CMP ####[facility] Ncgttglkin5668[address] [place], [place] [address]Dr. Yilan ChangAST [Catalytic activity/Vol]22 U/JLwvsnb78-26Ljr [facility] Comment on above:Performed By: #### CMP ####[facility] Wqackhaulb146[address] [place], [place] [address]Dr.Yilan ChangBilirubin [Mass/Vol]0.3 mg/dL Normal0.2-1.0The [facility] CenterComment on above:Performed By: #### CMP ####[facility] Ejntkbjqcg075[address] [place], [place] [address]Dr. Yilan ChangCalcium [Mass/Vol]8.7 mg/dLNormal8.5-10.1The [facility] CenterComment on above:Performed By: #### CMP ####[facility] Wzakwzvcym7656[address] [place], [place] [address]Dr.Yilan ChangChloride [Moles/Vol]102 mmol/LNormal 98-107The [facility] CenterComment on above:Performed By: #### CMP ####[facility] Xbsyslsqds1586[address] [place], [place] [address]Dr.Yilan ChangCO2 [Moles/Vol]25.5 mmol/IAnltto87.0-32.0The [facility] CenterComment on above: Performed By: #### CMP ####[facility] Jwtcyhtvzu1711[address] [place], [place] [address]Dr.Yilan ChangCreatinine [Mass/Vol]1.43 mg/dL Critically high0.55-1.02The [facility] CenterComment on above:Performed By: #### CMP ####[facility] Caazixazwt9884[address] [place], [place] [address]Dr.Yilan ChangEGFR-AF KVKORRHN87 mL/min/1.38i1Jmvvwqjbxi low>=60The [facility] CenterComment on above:Performed By: #### CMP ####[facility] Hxkcmfryyp7536[address] [place], [place] [address]Dr.Yilan ChangEGFR-NON AF SEKOACGQ35 mL/min/1.61p0Rzswmbzqtr low>=60The [facility] CenterComment on above: Performed By: #### CMP ####[facility] Ucsxuvzbpd887[address] [place], [place] [address]Dr.Yilan ChangGlobulin (S) [Mass/Vol]2.9 g/dLNormalThOhioHealth Shelby HospitalComment on above:Performed By: #### CMP ####[facility] Fmuvkufoiq1895[address] [place], [place] [address]Dr.Yilan ChangGlucose [Mass/Vol]83 mg/oPBaynzg53-851Kvg [facility] CenterComment on above:Performed By: #### CMP ####[facility] Uudxxncapm2094[address] [place], [place] [address]Dr.Yilan ChangPotassium [Moles/Vol]4.3 mmol/LNormal3.5-5.1The [facility] CenterComment on above:Performed By: #### CMP ####[facility] Leoswfbpvy5308[address] [place], [place] [address]Dr.Yilan ChangProtein [Mass/Vol]6.2 g/dLCritically low6.4-8.2The [facility] CenterComment on above: Performed By: #### CMP ####[facility] Ifsvefdzze6805[address] [place], [place] [address]Dr.Yilan ChangSodium [Moles/Vol]135 mmol/LCritically cwi069-004Jyh [facility] CenterComment on above:Performed By: #### CMP ####[facility] Wludpsbhze0480[address] [place], [place] [address]Dr. Yilan ChangUrea nitrogen [Mass/Vol]39.0 mg/dLCritically high7.0-18.0The [facility] CenterComment on above:Performed By: #### CMP ####[facility] Qrabhtcrhg424[address] [place], [place] [address]Dr.Yilan ChangUrea nitrogen/Creatinine [Mass ratio]27.3 mg/mgNormalThOhioHealth Shelby HospitalComment on above:Performed By: #### CMP ####[facility] Rqhaaqffzg516[address] [place], [place] [address]Dr.Selenaneil ChangOSMOLALITYon 50-97-4298Qgwulhveof [Osmolality]292 mosm/ruIyaoty161-606Eer [facility] CenterComment on above: Performed By: #### OSMO ####[facility] [address]bseie[address] [place] [address]Dr. Selenaneil ChangCBC AUTO DIFFon [id number] #0.0 103/ulNormal0.0-0.1The [facility] CenterComment on above:Performed By: #### CBC ####[facility] [address]vzuqxpdwa[address] [place] [address]Dr. Selenaneil ChangBasophils/100 WBC (Bld)0.4 %Normal0.2-2.0The [facility] on above:Performed By: #### CBC ####[facility] Rtvsmvknjm1524[address] [place], [place] [address]Dr.Selenalan ChangEO #0.2 103/ulNormal0.0-0.7The [facility] Hospitalment on above:Performed By: #### CBC ####[facility] Vqhjyjtfqg[address] [place], [place] [address]Dr.Airam ChangEosinophils/100 WBC (Bld)3.4 %Normal0.9-7.0The [facility] on above:Performed By: #### CBC ####[facility] Xzxecsimuz668[address] [place], [place] [address]Dr.Airam ChangErythrocyte distribution width (RBC) [Ratio]13.1 %Normal 11.0-15.0The [facility] Hospitalment on above:Performed By: #### CBC ####[facility] Dicdqizxwm2670[address] [place], [place] [address]Dr. Airam ChangHematocrit (Bld) [Volume fraction]31.6 %Critically low36.0-48.0The [facility] Hospitalment on above:Performed By: #### CBC ####[facility] Cycssoqkhq8147[address] [place], [place] [address]Dr.Airam ChangHemoglobin (Bld) [Mass/Vol]9.9 g/dLCritically low12.0-16.0The [facility] CenterComment on above:Performed By: #### CBC ####[facility] Sihepkbxle1098[address] [place], [place] [address]Dr.Airam TripathiIG #0.02 10e3/ulNormal0.00-0.03The [facility] CenterComment on above:Performed By: #### CBC ####[facility] Pziltjqxpo002[address] [place], [place] [address]Dr.Airam TripathiIG %0.4 %Normal 0.0-0.5The [facility] HospitalComment on above:Performed By: #### CBC ####[facility] Glywnnmswn4189[address] [place], [place] [address]Dr.Airam DossMPH #1.0 103/ulCritically low1.2-3.8The [facility] HospitalComment on above:Performed By: #### CBC ####[facility] Fgupqqdgvq252[address] [place], [place] [address]Dr.Airam Dossmphocytes/100 WBC (Bld)17.4 %Critically low20.5-60.0 The [facility] CenterComment on above:Performed By: #### CBC ####[facility] Gmghnczusq1620[address] [place], [place] [address]Dr.Airam TripathiMANUAL DIFF REQNONormalThe [facility] CenterComment on above:Performed By: #### CBC ####[facility] Yexpnepyrg7154[address] [place], [place] [address]Dr. Airam TripathiMEDISYS HEALTH NETWORK (RBC) [Entitic mass]30.1 mhCvulot20.7-34.0The [facility] Comment on above:Performed By: #### CBC ####[facility] Irweyqsiaf1484[address] [place], [place] [address]Dr.Airam TripathiST. [facility] (RBC) [Mass/Vol]31.3 g/dL Qkrcah19.9-35.2The [facility] CenterComment on above:Performed By: #### CBC ####[facility] Obduavunux4409[address] [place], [place] [address]Dr. Airam TripathiMCV (RBC) [Entitic vol]96.0 oJAuvwxp90.0-99.0The [facility] Comment on above:Performed By: #### CBC ####[facility] Iwbjkottzh[address] [place] [address]Dr.Airam TripathiMONO #0.5 103/ulNormal0.3-0.8 The [facility] CenterComment on above:Performed By: #### CBC ####[facility] Jootfdjzim3316[address] [place], [place] [address]Dr.Airam Tripathi Monocytes/100 WBC (Bld)8.6 %Normal1.7-12.0The [facility] CenterComment on above: Performed By: #### CBC ####[facility] Hbjnnmtmso030[address] [place], [place] [address]Dr.Airam TripathiNEUT #3.9 103/ulNormal1.4-6.5The [facility] CenterComment on above:Performed By: #### CBC ####[facility] Jibddfkdkm436[address] [place], [place] [address]Dr.Airam TripathiNeutrophils/100 WBC (Bld)69.8 %Bjrjoh58.0-75.0The [facility] CenterComment on above:Performed By: #### CBC ####[facility] Kznxgccjfz0085[address] [place], [place] [address]Dr.Airam TripathiPlatelet mean volume (Bld) [Entitic vol]9.6 fLNormal9.5-13.5 The [facility] CenterComment on above:Performed By: #### CBC ####[facility] Xjpwuzmlzg115[address] [place], [place] [address]Dr.Airam TripathiPLT228 103/zbRvivpe943-416Mrg [facility] CenterComment on above:Performed By: #### CBC ####[facility] Mujtkadzsd07[address] [place], [place] [address]Dr. Airam TripathiRBC3.29 106/ulCritically low4.20-5.40The [facility] CenterComment on above:Performed By: #### CBC ####[facility] Pcbuedjidr6[address] [place], [place] [address]Dr.Airam ChangWBC5.6 103/ulNormal4.0-11.0The [facility] CenterComment on above:Performed By: #### CBC ####[facility] Snxugytuwp8274[address] [place], [place] [address]Dr.Airam TripathiPROF 14(COMP METB)on 91-97-6764Ebcrtye [Mass/Vol]3.1 g/dLCritically low3.4-5.0The [facility] CenterComment on above:Performed By: #### CMP ####[facility] Wxawypzvlg2618[address] [place], [place] [address]Dr.Selenaneil Tripathi Albumin/Globulin [Mass ratio]1.0 {ratio}NormalThe [facility] CenterComment on above:Performed By: #### CMP ####[facility] Epkopnvgwa355[address] [place], [place] [address]Dr.Airam ChangALP [Catalytic activity/Vol]131 U/L Critically ecxo49-862Gld [facility] CenterComment on above:Performed By: #### CMP ####[facility] Ftdqvutowv6166[address] [place], [place] [address]Dr. Airam DeuceALT [Catalytic activity/Vol]19 U/YHwhhjz77-05Ons [facility] Comment on above:Performed By: #### CMP ####[facility] Vguabdbfmb8555[address] [place], [place] [address]Dr.Airam DeuceAnion gap [Moles/Vol]12.9 mmol/LNormalThe [facility] CenterComment on above:Performed By: #### CMP ####[facility] Emjexatzzb7648[address] [place], [place] [address]Dr. Airam ChangAST [Catalytic activity/Vol]21 U/CJewcgr76-11Gow [facility] Comment on above:Performed By: #### CMP ####[facility] Vepgumpfje110[address] [place], [place] [address]Dr.Airam ChangBilirubin [Mass/Vol]0.2 mg/dL Normal0.2-1.0The [facility] CenterComment on above:Performed By: #### CMP ####[facility] W[address]wyumadx[address] [place] [address]Dr. Yilan ChangCalcium [Mass/Vol]8.4 mg/dLCritically low8.5-10.1The [facility] CenterComment on above:Performed By: #### CMP ####[facility] Rloqrtefrf3664[address] [place], [place] [address]Dr.Yilan ChangChloride [Moles/Vol]103 mmol/FHtqlsx32-346Xzg [facility] CenterComment on above:Performed By: #### CMP ####[facility] Ahnsceazll9168[address] [place], [place] [address]Dr.Yilan ChangCO2 [Moles/Vol]23.7 mmol/DGzofxv78.0-32.0The [facility] CenterComment on above:Performed By: #### CMP ####[facility] Lrwprwxmxy2438[address] [place], [place] [address]Dr.Yilan ChangCreatinine [Mass/Vol]1.37 mg/dLCritically high0.55-1.02The [facility] CenterComment on above:Performed By: #### CMP ####[facility] Djrybibjpo8554[address] [place], [place] [address]Dr.Yilan ChangEGFR-AF FUNPOASM23 mL/min/1.73m2 Critically low>=60The [facility] CenterComment on above:Performed By: #### CMP ####[facility] Ymmocydplu9320[address] [place], [place] [address]Dr. Yilan ChangEGFR-NON AF VQJNRSWJ33 mL/min/1.80b1Bitaevdzay low>=60The [facility] CenterComment on above:Performed By: #### CMP ####[facility] Dpwufuauwt9801[address] [place], [place] [address]Dr.Yilan ChangGlobulin (S) [Mass/Vol]3.1 g/dLNormalThe [facility] CenterComment on above:Performed By: #### CMP ####[facility] Qvtczipsww5728[address] [place], [place] [address]Dr.Yilan ChangGlucose [Mass/Vol]88 mg/tAEkjosd16-283Emq [facility] Comment on above:Performed By: #### CMP ####[facility] Efqiunvhue6736[address] [place], [place] [address]Dr.Yilan ChangPotassium [Moles/Vol]4.6 mmol/LNormal3.5-5.1The [facility] CenterComment on above:Performed By: #### CMP ####[facility] Szxnqpzsvc9356[address] [place], [place] [address]Dr. Yilan ChangProtein [Mass/Vol]6.2 g/dLCritically low6.4-8.2The [facility] Comment on above:Performed By: #### CMP ####[facility] Pxvscrsgif684[address] [place], [place] [address]Dr.Yilan ChangSodium [Moles/Vol]135 mmol/L Critically byo038-255Igh [facility] CenterComment on above:Performed By: #### CMP ####[facility] Nnxrfoignz940[address] [place], [place] [address]Dr. Airam ChangUrea nitrogen [Mass/Vol]34.0 mg/dLCritically high7.0-18.0The [facility] CenterComment on above:Performed By: #### CMP ####[facility] Vizzayewkz2710[address] [place], [place] [address]Dr.Selenalan ChangUrea nitrogen/Creatinine [Mass ratio]24.8 mg/mgNormalThe [facility] CenterComment on above:Performed By: #### CMP ####[facility] Aoswobycgl3166[address] [place], [place] [address]Dr.Airam ChangOSMOLALITYon 54-17-6285Nqhscjvzzn [Osmolality]276 mosm/geActplr958-858Pwq [facility] CenterComment on above: Performed By: #### OSMO ####[facility] Rnzbdbmbkk7745[address] [place], [place] [address]Dr. Selenalan ChangMRI CSPINE WO CONon 48-42-9633KNE CSPINE WO CONNormalThe [facility] CenterCB AUTO DIFFon 66-19-8857EEUL #0.0 103/ulNormal0.0-0.1The [facility] CenterComment on above:Performed By: #### CBC ####[facility] [address]abuyb[address] [place] [id number]. Yilan ChangBasophils/100 WBC (Bld)0.2 %Normal0.2-2.0The [facility] CenterComment on above:Performed By: #### CBC ####[facility] Nrngjaqpwv726[address] [place], [place] [address]Dr.Yilan ChangEO #0.2 103/ulNormal0.0-0.7The [facility] CenterComment on above:Performed By: #### CBC ####[facility] Lucldarxiv995[address] [place], [place] [address]Dr.Yilan ChangEosinophils/100 WBC (Bld)2.1 %Normal0.9-7.0The [facility] CenterComtr[facility] on above:Performed By: #### CBC ####[facility] Kshgljhzth1916[address] [place], [place] [address]Dr.Yilan ChangErythrocyte distribution width (RBC) [Ratio]12.7 %Normal 11.0-15.0The [facility] CenterComment on above:Performed By: #### CBC ####[facility] Ewjdeziwnv5798[address] [place], [place] [address]Dr. Selenalan ChangHematocrit (Bld) [Volume fraction]32.2 %Critically low36.0-48.0The [facility] CenterComtr[facility] on above:Performed By: #### CBC ####[facility] Adxykyuygp7927[address] [place], [place] [address]Dr.Yilan ChangHemoglobin (Bld) [Mass/Vol]10.4 g/dLCritically low12.0-16.0The [facility] CenterComment on above:Performed By: #### CBC ####[facility] Zulmwmpbzb6168[address] [place], [place] [address]Dr.Yilan ChangIG #0.03 10e3/ulNormal0.00-0.03The [facility] CenterComtr[facility] on above:Performed By: #### CBC ####[facility] Joouqdxuyt57[address] [place], [place] [address]Dr.Yilan ChangIG %0.3 %Normal 0.0-0.5The [facility] HospitalComment on above:Performed By: #### CBC ####[facility] R[address]zudhuxe[address] [place] [address]Dr.Airam DossMPH #1.4 103/ulNormal1.2-3.8The [facility] CenterComment on above:Performed By: #### CBC ####[facility] Beitauqghi[address] [place] [address]Dr.Airam TripathiLymphocytes/100 WBC (Bld)16.0 %Critically low20.5-60.0The [facility] CenterComment on above:Performed By: #### CBC ####[facility] Ujtzunjjdq0764[address] [place], [place] [address]Dr.Airam TripathiMANUAL DIFF REQ NONormalThe [facility] CenterComment on above:Performed By: #### CBC ####[facility] Qlllzbdogz8208[address] [place], [place] [address]Dr. Airam DeuceH (RBC) [Entitic mass]30.0 jnXudpwo26.7-34.0[facility] Comment on above:Performed By: #### CBC ####[facility] Vwxuuyjnez4898[address] [place], [place] [address]Dr.Airam TripathiMCHC (RBC) [Mass/Vol]32.3 g/dL Ylrgqw95.9-35.2The [facility] CenterComment on above:Performed By: #### CBC ####[facility] Cmtgndjezb2924[address] [place], [place] [address]Dr. Airam TripathiV (RBC) [Entitic vol]92.8 uSNwqany59.0-99.0The [facility] Comment on above:Performed By: #### CBC ####[facility] Yqkjufdwou7397[address] [place], [place] [address]Dr.Airam DeuceMONO #0.4 103/ulNormal0.3-0.8 The [facility] CenterComment on above:Performed By: #### CBC ####[facility] Otfnkyjpqt0597[address] [place], [place] [address]DrKiannaSelenaneil Tripathi Monocytes/100 WBC (Bld)4.9 %Normal1.7-12.0The [facility] CenterComment on above: Performed By: #### CBC ####[facility] Hozbrygrud9434[address] [place], [place] [address]Dr.Airam TripathiNEUT #6.6 103/ulCritically high1.4-6.5 The [facility] CenterComment on above:Performed By: #### CBC ####[facility] Ndopearpdn2844[address] [place], [place] [address]Dr.Airam Tripathi Neutrophils/100 WBC (Bld)76.5 %Critically high43.0-75.0The [facility] Comment on above:Performed By: #### CBC ####[facility] Lnzmkhboxc199[address] [place], [place] [address]Dr.Airam TripathiPlatelet mean volume (Bld) [Entitic vol]9.8 fLNormal9.5-13.5The [facility] CenterComment on above:Performed By: #### CBC ####[facility] Eirygpfjou0008[address] [place], [place] [address]Dr.Airam TripathiPLT262 103/zlNlugam569-061Kou [facility] CenterComment on above:Performed By: #### CBC ####[facility] Kyqdmqtfus9401[address] [place], [place] [address]Dr.Airam TripathiRBC3.47 106/ulCritically low4.20-5.40The [facility] CenterComment on above:Performed By: #### CBC ####[facility] Jttrmkqccw8885[address] [place], [place] [address]Dr.Airam TripathiWBC8.7 103/ul Normal4.0-11.0The [facility] CenterComment on above:Performed By: #### CBC ####[facility] Zgxjwwcbgs1734[address] [place], [place] [address]Dr. Airam DeucePROF 14(COMP METB)on 43-38-8123Adhuslb [Mass/Vol]3.3 g/dLCritically low3.4-5.0The [facility] CenterComment on above:Performed By: #### CMP ####[facility] Bwbsxrpwuy7177[address] [place], [place] [address]Dr. Yilan ChangAlbumin/Globulin [Mass ratio]1.1 {ratio}NormalThe [facility] Comment on above:Performed By: #### CMP ####[facility] [address]xnuctlon[address] [place] [address]Dr.Yilan ChangALP [Catalytic activity/Vol] 114 U/QJiygnh75-037Agl [facility] CenterComment on above:Performed By: #### CMP ####[facility] Subfmowwsb[address] [place] [address]Dr. Yilan ChangALT [Catalytic activity/Vol]20 U/BQlkkws36-28Ony [facility] Comment on above:Performed By: #### CMP ####[facility] Msxhhihawx4418[address] [place], [place] [address]Dr.Yilan ChangAnion gap [Moles/Vol]14.7 mmol/LNormalThe [facility] CenterComment on above:Performed By: #### CMP ####[facility] Zallsgpwhm[address] [place], [place] [address]Dr. Yilan ChangAST [Catalytic activity/Vol]22 U/HLrlrcv39-41Avc [facility] Comment on above:Performed By: #### CMP ####[facility] Tjgmdorjcm8[address] [place], [place] [address]Dr.Yilan ChangBilirubin [Mass/Vol]0.3 mg/dL Normal0.2-1.0The [facility] CenterComment on above:Performed By: #### CMP ####[facility] Dmogapdvar4334[address] [place], [place] [address]Dr. Yilan ChangCalcium [Mass/Vol]8.8 mg/dLNormal8.5-10.1The [facility] CenterComment on above:Performed By: #### CMP ####[facility] Ufzgmqrldm[address] [place], [place] [address]Dr.Yilan ChangChloride [Moles/Vol]97 mmol/LCritically fxs09-211Jyg [facility] CenterComment on above:Performed By: #### CMP ####[facility] Hhhptnozfn55[address] [place], [place] [address]Dr. Yilan ChangCO2 [Moles/Vol]24.5 mmol/MOkiytc61.0-32.0The [facility] CenterComment on above:Performed By: #### CMP ####[facility] Sisrqyimwe[address] [place], [place] [address]Dr.Airam ChangCreatinine [Mass/Vol]1.28 mg/dL Critically high0.55-1.02The [facility] CenterComment on above:Performed By: #### CMP ####[facility] Uwmfthncmv[address] [place], [place] [address]Dr.Yilan ChangEGFR-AF UXNFGUEG28 mL/min/1.55l0Ghfcrmlrcc low>=60The [facility] CenterComment on above:Performed By: #### CMP ####[facility] Pfywhxsfms2137[address] [place], [place] [address]Dr.Yilan ChangEGFR-NON AF EMZSVTNC25 mL/min/1.45w8Tsuzshzimw low>=60The [facility] CenterComment on above: Performed By: #### CMP ####[facility] Hsfzxekgoe45[address] [place], [place] [address]Dr.Airam ChangGlobulin (S) [Mass/Vol]3.1 g/dLNormalThe [facility] CenterComment on above:Performed By: #### CMP ####[facility] Jgmrafbqhb9577[address] [place], [place] [address]Dr.Selenalan ChangGlucose [Mass/Vol]87 mg/pBVzhudn36-552Vht [facility] CenterComment on above:Performed By: #### CMP ####[facility] Dgpdpocaip234[address] [place], [place] [address]Dr.Selenalan ChangPotassium [Moles/Vol]4.2 mmol/LNormal3.5-5.1The [facility] CenterComment on above:Performed By: #### CMP ####[facility] Quhjbzxwre24[address] [place], [place] [address]Dr.Yilan ChangProtein [Mass/Vol]6.4 g/dLNormal6.4-8.2The [facility] CenterComment on above:Performed By: #### CMP ####[facility] Ympocftisa6785[address] [place], [place] [address]Dr.Airam ChangSodium [Moles/Vol]132 mmol/LCritically xbs119-285Bnu [facility] CenterComment on above:Performed By: #### CMP ####[facility] Alzwrflcvj0877[address] [place], [place] [address]Dr.Airam ChangUrea nitrogen [Mass/Vol]36.0 mg/dLCritically high7.0-18.0The [facility] CenterComment on above:Performed By: #### CMP ####[facility] Kcgmkunqgl7664[address] [place], [place] [address]Dr.Airam ChangUrea nitrogen/Creatinine [Mass ratio] 28.1 mg/mgNoGlenbeigh HospitalComment on above:Performed By: #### CMP ####[facility] Ahcylqxypz8209[address] [place], [place] [address]Dr. Airam ChangXR DEXA BONE DENSITYon 13-30-9985LP DEXA BONE DENSITYNoGlenbeigh HospitalOSMOLALITYon 72-26-0158Qygomyepap [Osmolality]277 mosm/kgNormal 275-295The [facility] CenterComment on above:Performed By: #### OSMO ####[facility] Sbwvlidhme7754[address] [place], [place] [address]Dr. Airam TripathiCBC AUTO DIFFon 74-72-2186PDEH #0.0 103/ulNormal0.0-0.1H[facility] Community HospitalComment on above:Performed By: #### CBC ####[facility] Lsufxwoftu0664[address] [place], [place] [address]Dr.Airam ChangBasophils/100 WBC (Bld)0.5 %Normal0.2-2.0The [facility] CenterComment on above:Performed By: #### CBC ####[facility] Zzfokfezht0210[address] [place], [place] [address]Dr.Selenalan ChangEO #0.2 103/ulNormal0.0-0.7The [facility] CenterComment on above:Performed By: #### CBC ####[facility] Dmoehjtgsh040[address] [place], [place] [address]Dr.Yilan ChangEosinophils/100 WBC (Bld)3.1 %Normal 0.9-7.0The [facility] CenterComment on above:Performed By: #### CBC ####[facility] Cciuiqrrfz8[address] [place], [place] [address]Dr.Airam Tripathi Erythrocyte distribution width (RBC) [Ratio]12.5 %Ivoapi28.0-15.0The [facility] CenterComment on above:Performed By: #### CBC ####[facility] Ehihhmjpop850[address] [place], [place] [address]Dr.Airam TripathiHematocrit (Bld) [Volume fraction]34.4 %Critically low36.0-48.0The [facility] CenterComment on above:Performed By: #### CBC ####[facility] Yynayeebla6247[address] [place], [place] [address]Dr.Airam ChangHemoglobin (Bld) [Mass/Vol]11.0 g/dL Critically low12.0-16.0The [facility] CenterComment on above:Performed By: #### CBC ####[facility] Jcxqzbpijh119[address] [place], [place] [address]Dr. Airam ChangIG #0.03 10e3/ulNormal0.00-0.03The [facility] CenterComment on above: Performed By: #### CBC ####[facility] Jcftuibyhu3270[address] [place], [place] [address]Dr.Airam ChangIG %0.5 %Normal0.0-0.5The [facility] CenterComment on above:Performed By: #### CBC ####[facility] Qqbygpvknt5029[address] [place], [place] [address]Dr.Airam ChangLYMPH #1.6 103/ulNormal1.2-3.8The [facility] CenterComment on above:Performed By: #### CBC ####[facility] Dvoebhmokm5594[address] [place], [place] [address]Dr. Airam ChangLymphocytes/100 WBC (Bld)28.0 %Xvaymw41.5-60.0The [facility] Comment on above:Performed By: #### CBC ####[facility] [address] [place] [address]Dr.Airam TripathiMANUAL DIFF REQNONormalThe [facility] CenterComment on above:Performed By: #### CBC ####[facility] Igawifbozw[address] [place] [address]Dr.Airam TripathiH (RBC) [Entitic mass]30.1 brLtcekj40.7-34.0The [facility]net HospitalComment on above: Performed By: #### CBC ####[facility] Cwdbfqllac2188[address] [place], [place] [address]Dr.Airam TripathiMCHC (RBC) [Mass/Vol]32.0 g/dLNormal 29.9-35.2The [facility] CenterComment on above:Performed By: #### CBC ####[facility] Lfmuhsmxmf32[address] [place], [place] [address]Dr. Airam TripathiV (RBC) [Entitic vol]94.0 uPRevkfo16.0-99.0The [facility] Comment on above:Performed By: #### CBC ####[facility] Pgvuggsktw8659[address] [place], [place] [address]Dr.Airam TripathiMONO #0.4 103/ulNormal0.3-0.8 The [facility] CenterComment on above:Performed By: #### CBC ####[facility] Yszlqaswqp7626[address] [place], [place] [address]Dr.Airam Tripathi Monocytes/100 WBC (Bld)7.5 %Normal1.7-12.0The [facility] CenterComment on above: Performed By: #### CBC ####[facility] Gkxysuhcko5878[address] [place], [place] [address]Dr.Airam DeuceNEUT #3.5 103/ulNormal1.4-6.5The [facility] CenterComment on above:Performed By: #### CBC ####[facility] Yipvhvuoca1735[address] [place], [place] [address]Dr.Airam DeuceNeutrophils/100 WBC (Bld)60.4 %Ojmrsu07.0-75.0The [facility] CenterComment on above:Performed By: #### CBC ####[facility] Dqmlkydieo39[address] [place] [address]Dr.Airam DeucePlatelet mean volume (Bld) [Entitic vol]10.0 fLNormal9.5-13.5 The [facility] CenterComment on above:Performed By: #### CBC ####[facility] Lojgbqdfur34[address] [place] [address]Dr.Airam AulxrEDM754 103/tkRahapc585-473Zfv [facility] CenterComment on above:Performed By: #### CBC ####[facility] Sjeurcxvyb0874[address] [place], [place] [address]Dr. Airam TripathiRBC3.66 106/ulCritically low4.20-5.40The [facility] CenterComment on above:Performed By: #### CBC ####[facility] Tgeonqjfoo6484[address] [place], [place] [address]Dr.Airam TripathiWBC5.7 103/ulNormal4.0-11.0The [facility] CenterComment on above:Performed By: #### CBC ####[facility] Xdbrryvklc287[address] [place], [place] [address]Dr.Selenaneil TripathiPROF 14(COMP METB)on 45-37-4535Thutsyk [Mass/Vol]3.3 g/dLCritically low3.4-5.0The [facility] CenterComment on above:Performed By: #### CMP ####[facility] Ngijqnkipv3988[address] [place], [place] [address]Dr.Airam Tripathi Albumin/Globulin [Mass ratio]1.0 {ratio}NormalThe [facility] CenterComment on above:Performed By: #### CMP ####[facility] Gbupwfxchl892[address] [place], [place] [address]Dr.Airam TripathiALP [Catalytic activity/Vol]138 U/L Critically vghi68-780Slg [facility] CenterComment on above:Performed By: #### CMP ####[facility] Jirekmqcfp4019[address] [place], [place] [address]Dr. Airam TripathiALT [Catalytic activity/Vol]25 U/LHmozir10-82Cqa [facility] Comment on above:Performed By: #### CMP ####[facility] Gcugcuqufn77[address] [place] [id number].Yilan ChangAnion gap [Moles/Vol]14.0 mmol/LNormalThe [facility] CenterComment on above:Performed By: #### CMP ####[facility] Ysjgkqydwa9[address] [place] [id number]. Yilan ChangAST [Catalytic activity/Vol]19 U/QLlzndh31-73Ynb [facility] Comment on above:Performed By: #### CMP ####[facility] Meamjrgauf64[address] [place] [address]Dr.Yilan ChangBilirubin [Mass/Vol]0.3 mg/dL Normal0.2-1.0The [facility] CenterComment on above:Performed By: #### CMP ####[facility] Iaucmxtuar228[address] [place], [place] [address]Dr. Yilan ChangCalcium [Mass/Vol]8.7 mg/dLNormal8.5-10.1The [facility] CenterComment on above:Performed By: #### CMP ####[facility] Hvtmgluxan1740[address] [place], [place] [address]Dr.Yilan ChangChloride [Moles/Vol]99 mmol/LNormal 98-107The [facility] CenterComment on above:Performed By: #### CMP ####[facility] Kcwxucsosd01[address] [place] [address]Dr.Yilan ChangCO2 [Moles/Vol]25.4 mmol/UJybrjx69.0-32.0The [facility] CenterComment on above: Performed By: #### CMP ####[facility] Orkpesmojk[address] [place], [place] [address]Dr.Yilan ChangCreatinine [Mass/Vol]1.22 mg/dL Critically high0.55-1.02The [facility] CenterComment on above:Performed By: #### CMP ####[facility] Jiloryxuas6522[address] [place], [place] [address]Dr.Yilan ChangEGFR-AF FTVQPBUH27 mL/min/1.46s9Nnyvmyqvnp low>=60The [facility] CenterComment on above:Performed By: #### CMP ####[facility] Fwfefhpvjo0225[address] [place], [place] [address]Dr.Selenalan ChangEGFR-NON AF NALXMXNX78 mL/min/1.97t5Jweyehvarh low>=60The [facility] CenterComment on above: Performed By: #### CMP ####[facility] Lerbwexozb359[address] [place], [place] [address]Dr.Airam ChangGlobulin (S) [Mass/Vol]3.2 g/dLNormalThe [facility] CenterComment on above:Performed By: #### CMP ####[facility] Patcmxzhgi3516[address] [place], [place] [address]Dr.Airam ChangGlucose [Mass/Vol]111 mg/dLCritically ftpo08-924Nhw [facility] CenterComment on above: Performed By: #### CMP ####[facility] Ycpndfzvqp986[address] [place], [place] [address]Dr.Airam ChangPotassium [Moles/Vol]4.4 mmol/LNormal 3.5-5.1The [facility] CenterComment on above:Performed By: #### CMP ####[facility] Aszoulaunk0387[address] [place], [place] [address]Dr.Selenaneil Tripathi Protein [Mass/Vol]6.5 g/dLNormal6.4-8.2The [facility] CenterComment on above: Performed By: #### CMP ####[facility] Kyxmiuntrc9084[address] [place], [place] [address]Dr.Selenaneil ChangSodium [Moles/Vol]134 mmol/LCritically tdz905-622Yfc [facility] CenterComment on above:Performed By: #### CMP ####[facility] Kfohviusmf9990[address] [place], [place] [address]Dr. Selenalan ChangUrea nitrogen [Mass/Vol]27.0 mg/dLCritically high7.0-18.0The [facility] CenterComment on above:Performed By: #### CMP ####[facility] Igeikryibv0966[address] [place], [place] [address]Dr.Yilan ChangUrea nitrogen/Creatinine [Mass ratio]22.1 mg/mgNoGlenbeigh HospitalComment on above:Performed By: #### CMP ####[facility] Zirmvvhevj9284 [place], [place] [address]GiBroderick TripathiCT CERVICAL SPINE WITHOUT CONTRASTon 25-81-8245SB CERVICAL SPINE WITHOUT CONTRASTUnTriHealth Bet[facility] Department of Radiology [address] [place] [address] Patient Name: MABEL MOSER : 1960 Sex: F Age: Race: White Pt. Location: 31 Patient Status: D Ordered Date: 08/17/2021 10:00:00 AM Completed Date: 01/10/2022 10:24 AM Requesting Provider: ROBERT JOHNSTON Attending Provider: ROBERT JOHNSTON Report Copy To: YURI SANTANA Signs & Symptoms: M54.12 Radiculopathy, cervical region I10 History: [place] seeing Dr. Johnston after Comments: Exam: CT [...] achievable. Electronically signed: Ayleen Ny. Transcribed by: [email or web address], User Resident: Electronically Signed by: AYLEEN [place] @ 01/12/2022 12:32 PMNormalThe [facility]erm[facility] HospitalOSMOLALITYon 73-75-5430Qlogtckjkq [Osmolality]286 mosm/bkYfdjli152-434God [facility] CenterComment on above:Performed By: #### OSMO ####[facility] Qpbknquvsq7[address] [place] [address]DrKianna TripathiCB AUTO DIFFon 47-45-3243YETQ #0.0 103/ulNormal0.0-0.1The [facility] CenterComment on above:Performed By: #### CBC ####[facility] Pqajuepanv09[address] [place] [address]DrBroderick TripathiBasophils/100 WBC (Bld)0.3 %Normal0.2-2.0The [facility] CenterComment on above:Performed By: #### CBC ####[facility] Ylnkhbqcjs33[address] [place] [address]DrBroderick ChangEO #0.2 103/ulNormal0.0-0.7The [facility] HospitalComment on above:Performed By: #### CBC ####[facility] Ucjgcpuqhv7089[address] [place], [place] [address]Dr.Airam ChangEosinophils/100 WBC (Bld)4.1 %Normal 0.9-7.0The [facility] HospitalComment on above:Performed By: #### CBC ####[facility] Usaoofdsoq1808[address] [place], [place] [address]Dr.Airam Tripathi Erythrocyte distribution width (RBC) [Ratio]12.9 %Rhglwg79.0-15.0The [facility] HospitalComment on above:Performed By: #### CBC ####[facility] Btbapqiqun265[address] [place], [place] [address]Dr.Airam ChangHematocrit (Bld) [Volume fraction]34.2 %Critically low36.0-48.0The [facility] CenterComment on above:Performed By: #### CBC ####[facility] Ihwhugjpgw266[address] [place], [place] [address]Dr.Airam ChangHemoglobin (Bld) [Mass/Vol]10.6 g/dL Critically low12.0-16.0The [facility] CenterComment on above:Performed By: #### CBC ####[facility] Dckyeypjnj3956[address] [place], [place] [address]Dr. Airam ChangIG #0.03 10e3/ulNormal0.00-0.03The [facility] HospitalComment on above: Performed By: #### CBC ####[facility] Lnnpmduert057[address] [place], [place] [address]Dr.Airam ChangIG %0.5 %Normal0.0-0.5The [facility] HospitalComment on above:Performed By: #### CBC ####[facility] Ybgqphxxzi4032[address] [place], [place] [address]Dr.Airam ChangLYMPH #1.1 103/ulCritically low1.2-3.8The [facility] CenterComment on above:Performed By: #### CBC ####[facility] Kiqpqxtqkx0684[address] [place], [place] [address]Dr.Airam TripathiLymphocytes/100 WBC (Bld)18.2 %Critically low20.5-60.0The [facility] CenterComment on above:Performed By: #### CBC ####[facility] Pjqkyvcmmv8[address] [place] [address]Dr.Airam TripathiMANUAL DIFF REQ NONormalThe [facility] CenterComment on above:Performed By: #### CBC ####[facility] Wzytzvnesn972[address] [place], [place] [address]Dr. Airam TripathiH (RBC) [Entitic mass]29.6 ceSufgui05.7-34.0The [facility] Comment on above:Performed By: #### CBC ####[facility] Mjxsllvjiw57[address] [place], [place] [address]Dr.Airam TripathiHC (RBC) [Mass/Vol]31.0 g/dL Hivgex28.9-35.2The [facility] CenterComment on above:Performed By: #### CBC ####[facility] Iwfzayceah9605[address] [place], [place] [address]Dr. Airam TripathiV (RBC) [Entitic vol]95.5 lLUqfxuv48.0-99.0The [facility] Comment on above:Performed By: #### CBC ####[facility] Xucysxqqmg8860[address] [place], [place] [address]Dr.Airam TripathiMONO #0.5 103/ulNormal0.3-0.8 The [facility] CenterComment on above:Performed By: #### CBC ####[facility] Pgmiqxdqtv6512[address] [place], [place] [address]Dr.Airam Tripathi Monocytes/100 WBC (Bld)8.5 %Normal1.7-12.0The [facility] CenterComment on above: Performed By: #### CBC ####[facility] Asazohdvyf3950[address] [place], [place] [address]Dr.Airam TripathiNEUT #4.0 103/ulNormal1.4-6.5The [facility] CenterComment on above:Performed By: #### CBC ####[facility] Iqctjtngjl65[address] [place] [address]Dr.Airam TripathiNeutrophils/100 WBC (Bld)68.4 %Mbricv80.0-75.0The [facility] CenterComment on above:Performed By: #### CBC ####[facility] Tfxesghaah3549[address] [place], [place] [address]Dr.Airam TripathiPlatelet mean volume (Bld) [Entitic vol]10.1 fLNormal9.5-13.5 The [facility] CenterComment on above:Performed By: #### CBC ####[facility] Ualqyjnvil346[address] [place], [place] [address]Dr.Airam ShbinLXD930 103/bsYyqito249-785Stw [facility] CenterComment on above:Performed By: #### CBC ####[facility] Oyqwhcfrow256[address] [place], [place] [address]Dr. Airam TripathiRBC3.58 106/ulCritically low4.20-5.40The [facility] CenterComment on above:Performed By: #### CBC ####[facility] Pyacdfubbi2865[address] [place], [place] [address]Dr.Airam TripathiWBC5.9 103/ulNormal4.0-11.0The [facility] CenterComment on above:Performed By: #### CBC ####[facility] Tgendcyspp3856[address] [place], [place] [address]Dr.Airam TripathiMG MAMM RT DIAG FUon [id number] MAMM RT DIAG FUNormalThe [facility] CenterPROF 14(COMP METB)on 12-77-1624Afnptdu [Mass/Vol]3.1 g/dLCritically low3.4-5.0The [facility] Comment on above:Performed By: #### CMP ####[facility] Stioqmuugq0787[address] [place], [place] [address]Dr.Airam TripathiAlbumin/Globulin [Mass ratio] 1.0 {ratio}NormalThe [facility] CenterComment on above:Performed By: #### CMP ####[facility] Cwsdrgbous8938[address] [place], [place] [address]Dr. Yilan ChangALP [Catalytic activity/Vol]143 U/LCritically jkkb37-592Egc [facility] CenterComment on above:Performed By: #### CMP ####[facility] Hnwjeotzuw1985[address] [place], [place] [address]Dr.Yineil ChangALT [Catalytic activity/Vol]23 U/UJxgmgm32-75Ckd [facility] CenterComment on above:Performed By: #### CMP ####[facility] Tlnpdozoon1864[address] [place], [place] [address]Dr.Airam ChangAnion gap [Moles/Vol]13.2 mmol/LNormalThe [facility] Comment on above:Performed By: #### CMP ####[facility] Fgeoxkvkeh5788[address] [place], [place] [address]Dr.Yineil ChangAST [Catalytic activity/Vol]20 U/ABgresn27-93Yxr [facility] CenterComment on above:Performed By: #### CMP ####[facility] Lipieezmtc767[address] [place], [place] [address]Dr. Airam ChangBilirubin [Mass/Vol]0.3 mg/dLNormal0.2-1.0The [facility] Comment on above:Performed By: #### CMP ####[facility] Jfkwljswmw56[address] [place], [place] [address]Dr.Yineil ChangCalcium [Mass/Vol]8.2 mg/dL Critically low8.5-10.1The [facility] CenterComment on above:Performed By: #### CMP ####[facility] Riyhucvebj159[address] [place], [place] [address]Dr. Yineil ChangChloride [Moles/Vol]100 mmol/CEwrarc11-201Iwh [facility] Comment on above:Performed By: #### CMP ####[facility] Kgtxjbonmc2438[address] [place], [place] [address]Dr.Yilan ChangCO2 [Moles/Vol]26.0 mmol/L Fvonka39.0-32.0The [facility] CenterComment on above:Performed By: #### CMP ####[facility] Oinbmmrcxu1897[address] [place], [place] [address]Dr. Yilan ChangCreatinine [Mass/Vol]1.52 mg/dLCritically high0.55-1.02The [facility] CenterComment on above:Performed By: #### CMP ####[facility] Svkzotgzff3909[address] [place], [place] [address]Dr.Airam ChangEGFR-AF NKXZJRXC92 mL/min/1.57r3Crxnyeomof low>=60The [facility] CenterComment on above: Performed By: #### CMP ####[facility] Udcnvvhwck8632[address] [place], [place] [address]Dr.Airam ChangEGFR-NON AF NMRDQXDG03 mL/min/1.73m2 Critically low>=60The [facility] CenterComment on above:Performed By: #### CMP ####[facility] Qsuqevclfe2787[address] [place], [place] [address]Dr. Airam TripathiGlobulin (S) [Mass/Vol]3.2 g/dLNormalThOhioHealth Shelby HospitalComment on above:Performed By: #### CMP ####[facility] Aoyyrgexnn6665[address] [place], [place] [address]Dr.Airam TripathiGlucose [Mass/Vol]84 mg/qZIowrej42-842 The [facility] CenterComment on above:Performed By: #### CMP ####[facility] Iblzbkcjcv995[address] [place], [place] [address]Dr.Airam Tripathi Potassium [Moles/Vol]4.2 mmol/LNormal3.5-5.1[facility] HospitalComment on above:Performed By: #### CMP ####[facility] Lhbjorrnql6757[address] [place], [place] [address]Dr.Airam TripathiProtein [Mass/Vol]6.3 g/dLCritically low 6.4-8.2[facility] HospitalComment on above:Performed By: #### CMP ####[facility] Dyjdaznnqu3104[address] [place], [place] [address]Dr.Airam Tripathi Sodium [Moles/Vol]135 mmol/LCritically hun552-456Yje [facility] CenterComment on above:Performed By: #### CMP ####[facility] Jwryvukjqb4813[address] [place], [place] [address]Dr.Yilan ChangUrea nitrogen [Mass/Vol]36.0 mg/dL Critically high7.0-18.0The [facility] CenterComment on above:Performed By: #### CMP ####[facility] Zspavpytvc367[address] [place], [place] [address]Dr. Airam ChangUrea nitrogen/Creatinine [Mass ratio]23.7 mg/mgNoGlenbeigh HospitalComment on above:Performed By: #### CMP ####[facility] Jahlzkpwtw9627[address] [place], [place] [address]Dr.Selenalan ChangUS BREAST RIGHT LIMITEDon 70-39-0364AC BREAST RIGHT LIMITEDNoPaulding County Hospital HospitalOSMOLALITY on 75-24-8969Pwjettsdck [Osmolality]280 mosm/kmIyohug403-313Rts [facility] CenterComment on above:Performed By: #### OSMO ####[facility] Cggezmgusd2159[address] [place], [place] [address]Dr. Airam DeuceCBC AUTO DIFF on 75-45-0286PJTG #0.0 103/ulNormal0.0-0.1The [facility] CenterComment on above: Performed By: #### CBC ####[facility] Cftyjlctkq2835[address] [place], [place] [address]Dr.Airam ChangBasophils/100 WBC (Bld)0.5 %Normal 0.2-2.0The [facility] CenterComment on above:Performed By: #### CBC ####[facility] Hhgcymfnzd386[address] [place], [place] [address]Dr.Selenalan ChangEO # 0.3 103/ulNormal0.0-0.7The [facility] CenterComment on above:Performed By: #### CBC ####[facility] Xavudzwfvo899[address] [place], [place] [address]Dr. Airam ChangEosinophils/100 WBC (Bld)3.5 %Normal0.9-7.0The [facility] Comment on above:Performed By: #### CBC ####[facility] Swqrnzjere976[address] [place], [place] [address]Dr.Airam ChangErythrocyte distribution width (RBC) [Ratio]13.0 %Kbisbd85.0-15.0The [facility] CenterComment on above: Performed By: #### CBC ####[facility] Jwtbertgey6[address] [place], [place] [address]Dr.Airam ChangHematocrit (Bld) [Volume fraction]34.2 % Critically low36.0-48.0The [facility] HospitalComment on above:Performed By: #### CBC ####[facility] Ijvktxzdtp722[address] [place], [place] [address]Dr. Airam ChangHemoglobin (Bld) [Mass/Vol]10.4 g/dLCritically low12.0-16.0The [facility] CenterComment on above:Performed By: #### CBC ####[facility] Igtfxmlizw74[address] [place], [place] [address]Dr.Yineil ChangIG #0.04 10e3/ulCritically high0.00-0.03The [facility] CenterComment on above:Performed By: #### CBC ####[facility] Skfyxplchn0554[address] [place], [place] [address]Dr.Airam ChangIG %0.5 %Normal0.0-0.5The [facility] CenterComment on above: Performed By: #### CBC ####[facility] Lzbkbgdaln9[address] [place], [place] [address]Dr.Airam ChangLYMPH #2.1 103/ulNormal1.2-3.8The [facility] CenterComment on above:Performed By: #### CBC ####[facility] Dozbdgdrjk73[address] [place], [place] [address]Dr.Airam TripathiLymphocytes/100 WBC (Bld)23.5 %Foksji77.5-60.0The [facility] HospitalComment on above:Performed By: #### CBC ####[facility] Zoqrtyqwzv[address] [place], [place] [address]Dr.Airam ChangMANUAL DIFF REQNONormalThe [facility] CenterComment on above:Performed By: #### CBC ####[facility] Cisheyukvy[address] [place], [place] [address]Dr.Airam TripathiH (RBC) [Entitic mass]29.4 pgNormal 26.7-34.0The [facility] CenterComment on above:Performed By: #### CBC ####[facility] [address] [place] [address]Dr. Airam TripathiHC (RBC) [Mass/Vol]30.4 g/jHRshkyv71.9-35.2The [facility] Comment on above:Performed By: #### CBC ####[facility] Sanqetldgw[address] [place] [address]Dr.Airam TripathiV (RBC) [Entitic vol]96.6 fL Ttbmhg30.0-99.0The [facility] CenterComment on above:Performed By: #### CBC ####[facility] Vlrdgzhtqp47[address] [place], [place] [address]Dr. Airam TripathiMONO #0.6 103/ulNormal0.3-0.8The [facility] CenterComment on above: Performed By: #### CBC ####[facility] Upppbhtrnq8[address] [place], [place] [address]Dr.Airam TripathiMonocytes/100 WBC (Bld)6.4 %Normal 1.7-12.0The [facility] CenterComment on above:Performed By: #### CBC ####[facility] Hqdljowwmi[address] [place] [address]Dr. Airam TripathiNEUT #5.8 103/ulNormal1.4-6.5The [facility] CenterComment on above: Performed By: #### CBC ####[facility] Kncynweovl9[address] [place], [place] [address]Dr.Airam ChangNeutrophils/100 WBC (Bld)65.6 %Normal 43.0-75.0The [facility] CenterComment on above:Performed By: #### CBC ####[facility] Ndvthjdwxv70[address] [place], [place] [address]Dr. Airam TripathiPlatelet mean volume (Bld) [Entitic vol]9.2 fLCritically low9.5-13.5 The [facility] CenterComment on above:Performed By: #### CBC ####[facility] Uhohwqeivi[address] [place] [address]Dr.Airam TripathiPLT338 103/kmGtqumw667-152Zmw [facility] CenterComment on above:Performed By: #### CBC ####[facility] Nfesqvmikn[address] [place] [address]Dr. Airam ChangRBC3.54 106/ulCritically low4.20-5.40The [facility] CenterComment on above:Performed By: #### CBC ####[facility] Ecwirfwdtt[address] [place] [address]Dr.Aiarm ChangWBC8.9 103/ulNormal4.0-11.0The [facility] CenterComment on above:Performed By: #### CBC ####[facility] Jvguidvzgv107[address] [place], [place] [address]Dr.Airam TripathiMG MAMM SCREEN 3D GUMARO CADon 80-80-0098KO MAMM SCREEN 3D GUMARO CADNormSt. Rita's Hospitale [facility] HospitalPROF 14(COMP METB)on 53-72-9289Edlcahy [Mass/Vol]3.6 g/dLNormal3.4-5.0The [facility] CenterComment on above:Performed By: #### CMP ####[facility] Kxnakeypgu9[address] [place], [place] [address]Dr.Airam Tripathi Albumin/Globulin [Mass ratio]1.1 {ratio}NormalThe [facility] CenterComment on above:Performed By: #### CMP ####[facility] Tyeeeiwelc[address] [place] [address]Dr.Airam TripathiALP [Catalytic activity/Vol]117 U/L Critically ekst11-116Dom [facility] CenterComment on above:Performed By: #### CMP ####[facility] Xtfyfpulon9[address] [place], [place] [address]Dr. Airam TripathiALT [Catalytic activity/Vol]26 U/AFqvdrq88-74Dtw [facility] Comment on above:Performed By: #### CMP ####[facility] Endpcnmxfs3935[address] [place], [place] [address]Dr.Yilan ChangAnion gap [Moles/Vol]11.2 mmol/LNormalThe [facility] CenterComment on above:Performed By: #### CMP ####[facility] Wetyieylsh4725[address] [place], [place] [address]Dr. Yilan ChangAST [Catalytic activity/Vol]29 U/OPbbnkj87-34Vrw [facility] Comment on above:Performed By: #### CMP ####[facility] Gtnxpuohjl7868[address] [place], [place] [address]Dr.Yineil ChangBilirubin [Mass/Vol]0.3 mg/dL Normal0.2-1.0The [facility] CenterComment on above:Performed By: #### CMP ####[facility] Jxqheibpwu54[address] [place], [place] [address]Dr. Yilan ChangCalcium [Mass/Vol]9.1 mg/dLNormal8.5-10.1The [facility] CenterComment on above:Performed By: #### CMP ####[facility] Krocovgixu9025[address] [place], [place] [address]Dr.Airam ChangChloride [Moles/Vol]101 mmol/LNormal 98-107The [facility] CenterComment on above:Performed By: #### CMP ####[facility] Tayequdiam[address] [place], [place] [address]Dr.Yineil ChangCO2 [Moles/Vol]26.8 mmol/NLjfday58.0-32.0The [facility] CenterComment on above: Performed By: #### CMP ####[facility] Mugvyuxlgg332[address] [place], [place] [address]Dr.Selenalan ChangCreatinine [Mass/Vol]1.56 mg/dL Critically high0.55-1.02The [facility] CenterComment on above:Performed By: #### CMP ####[facility] Isathoxbza3410[address] [place], [place] [address]Dr.Yilan ChangEGFR-AF EBLNFVFN00 mL/min/1.11v6Wwescqnune low>=60The [facility] CenterComment on above:Performed By: #### CMP ####[facility] Fsshklhxev6859[address] [place], [place] [address]Dr.Yilan ChangEGFR-NON AF WVRRQYOX21 mL/min/1.72e9Rjcaocioai low>=60The [facility] CenterComment on above: Performed By: #### CMP ####[facility] Vflcutytvf6069[address] [place], [place] [address]Dr.Yilan ChangGlobulin (S) [Mass/Vol]3.3 g/dLNormalThe [facility] CenterComment on above:Performed By: #### CMP ####[facility] Fyqplgyjnb8256[address] [place], [place] [address]Dr.Yilan ChangGlucose [Mass/Vol]84 mg/dNGggycl92-054Gtq [facility] CenterComment on above:Performed By: #### CMP ####[facility] Ukkljazxhp5469[address] [place], [place] [address]Dr.Yilan ChangPotassium [Moles/Vol]5.0 mmol/LNormal3.5-5.1The [facility] CenterComment on above:Performed By: #### CMP ####[facility] Fzjmvxqgzm244[address] [place], [place] [address]Dr.Yilan ChangProtein [Mass/Vol]6.9 g/dLNormal6.4-8.2The [facility] CenterComment on above:Performed By: #### CMP ####[facility] Peisrkzbtu6674[address] [place], [place] [address]Dr.Yilan ChangSodium [Moles/Vol]134 mmol/LCritically gzs032-210Iez [facility] CenterComment on above:Performed By: #### CMP ####[facility] Hputsrydel144[address] [place], [place] [address]Dr.Yilan ChangUrea nitrogen [Mass/Vol]28.0 mg/dLCritically high7.0-18.0The [facility] CenterComment on above:Performed By: #### CMP ####[facility] Btpnhgbnds4838[address] [place], [place] [address]Dr.Yilan ChangUrea nitrogen/Creatinine [Mass ratio] 17.9 mg/mgNormalThe [facility] CenterComment on above:Performed By: #### CMP ####[facility] Quvydkqnxx[address] [place] [address]Dr. Airam DeuceOSMOLALITYon 60-58-4369Pmmkopdgiu [Osmolality]287 mosm/kgNormal 275-295The [facility] on above:Performed By: #### OSMO ####[facility] Kpvjmzvhot706[address] [place], [place] [address]Dr. Airam TripathiCBC AUTO DIFFon 64-04-9377XDFY #0.0 103/ulNormal0.0-0.1The [facility] CenterComment on above:Performed By: #### CBC ####[facility] Eewyzsdtma9932[address] [place], [place] [address]Dr.Airam TripathiBasophils/100 WBC (Bld)0.5 %Normal0.2-2.0The [facility] on above:Performed By: #### CBC ####[facility] Xdqnfinnae350[address] [place], [place] [address]Dr.Airam ChangEO #0.4 103/ulNormal0.0-0.7The [facility] on above:Performed By: #### CBC ####[facility] Dkbibuezbv8160[address] [place], [place] [address]Dr.Airam ChangEosinophils/100 WBC (Bld)6.4 %Normal 0.9-7.0The [facility] on above:Performed By: #### CBC ####[facility] Lyndbukqrt8560[address] [place], [place] [address]Dr.Airam Tripathi Erythrocyte distribution width (RBC) [Ratio]13.2 %Hawknk99.0-15.0The [facility] on above:Performed By: #### CBC ####[facility] Pesnlpcoaz6125[address] [place], [place] [address]Dr.Airam TripathiHematocrit (Bld) [Volume fraction]32.2 %Critically low36.0-48.0The [facility] CenterComment on above:Performed By: #### CBC ####[facility] Uvzgpruiqc799[address] [place], [place] [address]Dr.Airam TripathiHemoglobin (Bld) [Mass/Vol]10.1 g/dL Critically low12.0-16.0The [facility] CenterComment on above:Performed By: #### CBC ####[facility] Myxxxzsqhj632[address] [place], [place] [address]DrKianna TripathiIG #0.03 10e3/ulNormal0.00-0.03The [facility] CenterComment on above: Performed By: #### CBC ####[facility] Xucmevzqao3890[address] [place], [place] [address]DrBroderick Tripathi %0.5 %Normal0.0-0.5The [facility] CenterComment on above:Performed By: #### CBC ####[facility] Ytxoixptrv8835[address] [place], [place] [address]DrBroderick TripathiRAPPAHANNOCK GENERAL [facility]PITAL #1.3 103/ulNormal1.2-3.8The [facility] CenterComment on above:Performed By: #### CBC ####[facility] Hsslqiginl0860[address] [place], [place] [address]Dr. Airam TripathiHudson Valley Hospitalhocytes/100 WBC (Bld)20.5 %Itxvoj34.5-60.0The [facility] Comment on above:Performed By: #### CBC ####[facility] Bunpkypoom0628[address] [place], [place] [address]Dr.Airam TripathiALTAMONTUAL DIFF REQNONormalThe [facility] CenterComment on above:Performed By: #### CBC ####[facility] Pnihnzsiwx350[address] [place], [place] [address]Dr.Airam TripathiMEDISYS HEALTH NETWORK (RBC) [Entitic mass]30.1 nxFlzmaj32.7-34.0The [facility] CenterComment on above: Performed By: #### CBC ####[facility] Zlcsvaorak8437[address] [place], [place] [address]DrBroderick TripathiST. [facility]ER'[facility] (RBC) [Mass/Vol]31.4 g/dLNormal 29.9-35.2The [facility] CenterComment on above:Performed By: #### CBC ####[facility] Zjlhdeqshg7708[address] [place], [place] [address]Dr. Airam TripathiMCV (RBC) [Entitic vol]95.8 xSDzwens25.0-99.0The [facility] Comment on above:Performed By: #### CBC ####[facility] Qnfbtpetal2220[address] [place], [place] [address]Dr.Airam TripathiMONO #0.5 103/ulNormal0.3-0.8 The [facility] HospitalComment on above:Performed By: #### CBC ####[facility] Crntcxqzag1232[address] [place], [place] [address]Dr.Airam Tripathi Monocytes/100 WBC (Bld)7.4 %Normal1.7-12.0The [facility] CenterComment on above: Performed By: #### CBC ####[facility] Wxucgyhauf9524[address] [place], [place] [address]Dr.Airam TripathiNEUT #3.9 103/ulNormal1.4-6.5The [facility] HospitalComment on above:Performed By: #### CBC ####[facility] Mahjoetiha6318[address] [place], [place] [address]Dr.Airam TripathiNeutrophils/100 WBC (Bld)64.7 %Bsbtsr20.0-75.0The [facility] HospitalComment on above:Performed By: #### CBC ####[facility] Xhbobcanta8406[address] [place], [place] [address]Dr.Aiarm TripathiPlatelet mean volume (Bld) [Entitic vol]9.2 fLCritically low 9.5-13.5The [facility] CenterComment on above:Performed By: #### CBC ####[facility] Klqtzwjems5850[address] [place], [place] [address]Dr. Airam RgouvWWA261 103/rlFkszba075-801Ihn [facility] CenterComment on above: Performed By: #### CBC ####[facility] Fotqxdfwbd5289[address] [place], [place] [address]Dr.Airam TripathiRBC3.36 106/ulCritically low4.20-5.40The [facility] CenterComment on above:Performed By: #### CBC ####[facility] Wvhxpswmfc[address] [place] [address]Dr.Airam ChangWBC6.1 103/ul Normal4.0-11.0The [facility] CenterComment on above:Performed By: #### CBC ####[facility] Xccpzivgdk9536[address] [place], [place] [address]Dr. Yilan ChangPROF 14(COMP METB)on 01-36-9140Otahzxf [Mass/Vol]3.2 g/dLCritically low3.4-5.0The [facility] CenterComment on above:Performed By: #### CMP ####[facility] Cwcbqqyxxo8755[address] [place], [place] [address]Dr. Yilan ChangAlbumin/Globulin [Mass ratio]1.1 {ratio}NormalThe [facility] Comment on above:Performed By: #### CMP ####[facility] Iidhqywmsa2101[address] [place], [place] [address]Dr.Selenalan ChangALP [Catalytic activity/Vol] 123 U/LCritically byjm60-717Muh [facility] CenterComment on above:Performed By: #### CMP ####[facility] Wwgwnxtsnk7855[address] [place], [place] [address]Dr.Yilan ChangALT [Catalytic activity/Vol]26 U/CPgnave64-87Hhh [facility] CenterComment on above:Performed By: #### CMP ####[facility] Qodfdbxkap5979[address] [place], [place] [address]Dr.Selenalan ChangAnion gap [Moles/Vol]14.5 mmol/LNormalThe [facility] CenterComment on above:Performed By: #### CMP ####[facility] Kzfgwepvks7424[address] [place], [place] [address]Dr.Yilan ChangAST [Catalytic activity/Vol]23 U/DQmgejp08-81Eew [facility] CenterComment on above:Performed By: #### CMP ####[facility] Gbnuzbeync[address] [place], [place] [address]Dr.Yilan ChangBilirubin [Mass/Vol]0.3 mg/dLNormal0.2-1.0The [facility] CenterComment on above:Performed By: #### CMP ####[facility] Tcgumdznln[address] [place] [address]Dr.Yilan ChangCalcium [Mass/Vol]8.2 mg/dLCritically low8.5-10.1The [facility] CenterComment on above:Performed By: #### CMP ####[facility] Hctaqgenzn88[address] [place] [address]Dr.Yilan ChangChloride [Moles/Vol]102 mmol/AClvfjv29-901Pqu [facility] CenterComment on above:Performed By: #### CMP ####[facility] Girekonhrf9455[address] [place], [place] [address]Dr.Yilan ChangCO2 [Moles/Vol]23.2 mmol/DSfbmsd81.0-32.0The [facility] CenterComtrinity [facility] on above:Performed By: #### CMP ####[facility] Gqkuxcmfbc7834[address] [place], [place] [address]Dr.Yilan ChangCreatinine [Mass/Vol]1.98 mg/dLCritically high0.55-1.02The [facility] CenterComment on above:Performed By: #### CMP ####[facility] Lunvysinlt6397[address] [place], [place] [address]Dr.Yilan ChangEGFR-AF EVDDQDSL96 mL/min/1.73m2 Critically low>=60The [facility] CenterComtr[facility] on above:Performed By: #### CMP ####[facility] Osmlcitkth7606[address] [place], [place] [address]Dr. Yilan ChangEGFR-NON AF EXBAWMBK89 mL/min/1.73y5Ihwearxvoi low>=60The [facility] CenterComment on above:Performed By: #### CMP ####[facility] Tjvxwanobs464[address] [place], [place] [address]Dr.Yilan ChangGlobulin (S) [Mass/Vol]3.0 g/dLNormalThe [facility] CenterComtrinity health [facility] on above:Performed By: #### CMP ####[facility] Brropqoocs7523[address] [place], [place] [address]Dr.Yilan ChangGlucose [Mass/Vol]131 mg/dLCritically pdwm40-608Bbs [facility] CenterComment on above:Performed By: #### CMP ####[facility] Wsjvlxyqgd5127[address] [place], [place] [address]Dr.Airam TripathiPotassium [Moles/Vol]4.7 mmol/LNormal3.5-5.1The [facility] CenterComment on above: Performed By: #### CMP ####[facility] Sbjlzugwir7280[address] [place], [place] [address]Dr.Airam TripathiProtein [Mass/Vol]6.2 g/dLCritically low 6.4-8.2The [facility] HospitalComment on above:Performed By: #### CMP ####[facility] Wupukeakpd0825[address] [place], [place] [address]Dr.Airam Tripathi Sodium [Moles/Vol]135 mmol/LCritically tkv205-814Jkn [facility] CenterComment on above:Performed By: #### CMP ####[facility] Uvewgrxyid2886[address] [place], [place] [address]Dr.Airam TripathiUrea nitrogen [Mass/Vol]37.0 mg/dL Critically high7.0-18.0The [facility] CenterComment on above:Performed By: #### CMP ####[facility] Kilrvgdeav2922[address] [place], [place] [address]Dr. Airam TripathiUrea nitrogen/Creatinine [Mass ratio]18.7 mg/mgNormalThe [facility] CenterComment on above:Performed By: #### CMP ####[facility] Ymfhcbsugv639[address] [place], [place] [address]Dr.Airam DeuceOSMOLALITYon 72-93-2723Uqapdiskjt [Osmolality]271 mosm/kgCritically fav265-976Lyu [facility] CenterComment on above:Performed By: #### OSMO ####[facility] Yownvtrvsd9416[address] [place], [place] [address]Dr. Airam TripathiCBC AUTO DIFF on 79-58-5342YNSJ #0.0 103/ulNormal0.0-0.1The [facility] CenterComment on above: Performed By: #### CBC ####[facility] Jrxjtjefcu0969[address] [place], [place] [address]Dr.Yilan ChangBasophils/100 WBC (Bld)0.6 %Normal 0.2-2.0The [facility] CenterComment on above:Performed By: #### CBC ####[facility] Utososbjmf[address] [place] [address]Dr.Yilan ChangEO # 0.1 103/ulNormal0.0-0.7The [facility] CenterComment on above:Performed By: #### CBC ####[facility] Fxekljhcqg20[address] [place], [place] [address]Dr. Yilan ChangEosinophils/100 WBC (Bld)2.1 %Normal0.9-7.0The [facility] Comment on above:Performed By: #### CBC ####[facility] Nokuguznik848[address] [place], [place] [address]Dr.Yilan ChangErythrocyte distribution width (RBC) [Ratio]13.1 %Gmgmrs96.0-15.0The [facility] CenterComment on above: Performed By: #### CBC ####[facility] Dndulpulcr8298[address] [place], [place] [address]Dr.Yilan ChangHematocrit (Bld) [Volume fraction]33.8 % Critically low36.0-48.0The [facility] CenterComment on above:Performed By: #### CBC ####[facility] Uklzawwkpd1455[address] [place], [place] [address]Dr. Yilan ChangHemoglobin (Bld) [Mass/Vol]10.7 g/dLCritically low12.0-16.0The [facility] CenterComment on above:Performed By: #### CBC ####[facility] Qeirmnwohj[address] [place], [place] [address]Dr.Yilan ChangIG #0.02 10e3/ulNormal0.00-0.03The [facility] CenterComment on above:Performed By: #### CBC ####[facility] Dqvrdhincw3870[address] [place], [place] [address]Dr. Yilan ChangIG %0.3 %Normal0.0-0.5The [facility] CenterComment on above:Performed By: #### CBC ####[facility] Aqtpscjquk[address] [place] [address]Dr.Ariam ChangLYMPH #1.2 103/ulNormal1.2-3.8The [facility] Comment on above:Performed By: #### CBC ####[facility] Bizzbpyfuk[address] [place] [address]Dr.Airam TripathiLymphocytes/100 WBC (Bld)17.3 %Critically low20.5-60.0The [facility] CenterComment on above:Performed By: #### CBC ####[facility] Wgbhayqlwy36[address] [place] [address]Dr.Airam ChangMANUAL DIFF REQNONormalThe [facility] CenterComment on above: Performed By: #### CBC ####[facility] Elmibfrrks6207[address] [place], [place] [address]Dr.Airam TripathiMCH (RBC) [Entitic mass]30.2 pgNormal 26.7-34.0The [facility] CenterComment on above:Performed By: #### CBC ####[facility] Dusaavfvim6718[address] [place], [place] [address]Dr. Airam TripathiMCHC (RBC) [Mass/Vol]31.7 g/fCGmjynp98.9-35.2[facility] Comment on above:Performed By: #### CBC ####[facility] Iwbakuhxox7575[address] [place], [place] [address]Dr.Airam TripathiMCV (RBC) [Entitic vol]95.5 fL Ufltor40.0-99.0The [facility] CenterComment on above:Performed By: #### CBC ####[facility] Pcvqmwjfgh28[address] [place] [address]Dr. Airam ChangMONO #0.5 103/ulNormal0.3-0.8The [facility] CenterComment on above: Performed By: #### CBC ####[facility] Isuckkpfkh7124[address] [place], [place] [address]Dr.Airam ChangMonocytes/100 WBC (Bld)6.8 %Normal 1.7-12.0The [facility] CenterComment on above:Performed By: #### CBC ####[facility] Rjktbvqmes7[address] [place] [address]Dr. Airam TripathiNEUT #4.9 103/ulNormal1.4-6.5The [facility] CenterComment on above: Performed By: #### CBC ####[facility] Tejhbctkkp4[address] [place] [address]Dr.Airam TripathiNeutrophils/100 WBC (Bld)72.9 %Normal 43.0-75.0The [facility] HospitalComment on above:Performed By: #### CBC ####[facility] Xtqxzwokxm640[address] [place], [place] [address]Dr. Airam TripathiPlatelet mean volume (Bld) [Entitic vol]9.0 fLCritically low9.5-13.5 The [facility] CenterComment on above:Performed By: #### CBC ####[facility] Axiyfweymz7823[address] [place], [place] [address]Dr.Airam JvgfwAXY884 103/ppQhhyzp729-692Osm [facility] CenterComment on above:Performed By: #### CBC ####[facility] Xuizajkgyc[address] [place], [place] [address]Dr. Airam TripathiRBC3.54 106/ulCritically low4.20-5.40The [facility] CenterComment on above:Performed By: #### CBC ####[facility] Vmzybjizyg2857[address] [place], [place] [address]Dr.Airam TripathiWBC6.8 103/ulNormal4.0-11.0The [facility] HospitalComment on above:Performed By: #### CBC ####[facility] Qabrrwxpvq029[address] [place], [place] [address]Dr.Airam TripathiPROF 14(COMP METB)on 28-30-4597Xpgmmuo [Mass/Vol]3.2 g/dLCritically low3.4-5.0The [facility] HospitalComment on above:Performed By: #### CMP ####[facility] Ppivbnuysi9425[address] [place], [place] [address]Dr.Airam Tripathi Albumin/Globulin [Mass ratio]1.0 {ratio}NormalThe [facility] CenterComment on above:Performed By: #### CMP ####[facility] Ktzqbyqiqb[address] [place] [address]Dr.Yilan ChangALP [Catalytic activity/Vol]109 U/L Ruhwol28-337Brt [facility] CenterComment on above:Performed By: #### CMP ####[facility] Tammmibrlh39[address] [place] [address]Dr. Yilan ChangALT [Catalytic activity/Vol]23 U/NLzfemy76-36Hqp [facility] Comment on above:Performed By: #### CMP ####[facility] Ugbdvgmvcy[address] [place], [place] [address]Dr.Yilan ChangAnion gap [Moles/Vol]11.6 mmol/LNormalThe [facility] CenterComment on above:Performed By: #### CMP ####[facility] Qzdmdhhhzu[address] [place], [place] [address]Dr. Yilan ChangAST [Catalytic activity/Vol]24 U/TWjlyzq48-57Ats [facility] Comment on above:Performed By: #### CMP ####[facility] Vdvtpyydnv62[address] [place], [place] [address]Dr.Yilan ChangBilirubin [Mass/Vol]0.2 mg/dL Normal0.2-1.0The [facility] CenterComment on above:Performed By: #### CMP ####[facility] Pkkzsdteyd[address] [place], [place] [address]Dr. Yilan ChangCalcium [Mass/Vol]8.6 mg/dLNormal8.5-10.1The [facility] CenterComment on above:Performed By: #### CMP ####[facility] Avrpmsmxiw6[address] [place], [place] [address]Dr.Yilan ChangChloride [Moles/Vol]100 mmol/LNormal 98-107The [facility] CenterComment on above:Performed By: #### CMP ####[facility] Gevihcnmms[address] [place], [place] [address]Dr.Yilan ChangCO2 [Moles/Vol]24.7 mmol/CEjsxjp29.0-32.0The [facility] CenterComment on above: Performed By: #### CMP ####[facility] Jokljevide[address] [place] [address]Dr.Airam ChangCreatinine [Mass/Vol]1.11 mg/dL Critically high0.55-1.02[facility] HospitalComment on above:Performed By: #### CMP ####[facility] S[address]iiwsxfc[address] [place] [address]Dr.Yilan ChangEGFR-AF YEMENI>60Normal>=60The [facility] CenterComment on above:Performed By: #### CMP ####[facility] Xxhbmhjghz65[address] [place], [place] [address]Dr.Yilan ChangEGFR-NON AF NRNQAEWW18 mL/min/1.73m2 Critically low>=60The [facility] CenterComment on above:Performed By: #### CMP ####[facility] Kiatvlbbgp759[address] [address] [place], [place] [address]Dr. Airam ChangGlobulin (S) [Mass/Vol]3.1 g/dLNormalThOhioHealth Shelby HospitalComment on above:Performed By: #### CMP ####[facility] Ylbfmmlutg[address] [place], [place] [address]Dr.Airam ChangGlucose [Mass/Vol]79 mg/sMHhpadd16-081 [facility] HospitalComment on above:Performed By: #### CMP ####[facility] Mmtfvebuei6[address] [place], [place] [address]Dr.Airam Tripathi Potassium [Moles/Vol]5.3 mmol/LCritically high3.5-5.1The [facility] Comment on above:Performed By: #### CMP ####[facility] Htwwlgdpyj8[address] [place], [place] [address]Dr.Selenaneil ChangProtein [Mass/Vol]6.3 g/dL Critically low6.4-8.2The [facility] CenterComment on above:Performed By: #### CMP ####[facility] Syqxbwllfs739[address] [place], [place] [address]Dr. Airam ChangSodium [Moles/Vol]131 mmol/LCritically rwz448-934Ukf [facility] CenterComment on above:Performed By: #### CMP ####[facility] Frpvcsdptw36[address] [place], [place] [address]Dr.Airam ChangUrea nitrogen [Mass/Vol]20.0 mg/dLCritically high7.0-18.0The [facility] CenterComment on above:Performed By: #### CMP ####[facility] Kkqdjfmerf230[address] [place], [place] [address]Dr.Selenalan ChangUrea nitrogen/Creatinine [Mass ratio] 18.0 mg/mgNormalThe [facility] CenterComment on above:Performed By: #### CMP ####[facility] Hilnigzssm[address] [place], [place] [address]Dr. Airam ChangOSMOLALITYon 43-64-4582Cpddgilbtz [Osmolality]279 mosm/kgNormal 275-295The [facility] CenterComtr[facility] on above:Performed By: #### OSMO ####[facility] Jpfpbczijb01[address] [place], [place] [address]Dr. Selenaneil ChangCBC AUTO DIFFon 25-21-0987UKUF #0.0 103/ulNormal0.0-0.1The [facility] CenterComtr[facility] on above:Performed By: #### CBC ####[facility] Izpvdnblki139[address] [place], [place] [address]Dr.Selenalan ChangBasophils/100 WBC (Bld)0.5 %Normal0.2-2.0The [facility] CenterComtr[facility] on above:Performed By: #### CBC ####[facility] Wdltjveucy6[address] [place], [place] [address]Dr.Yilan ChangEO #0.4 103/ulNormal0.0-0.7The [facility] on above:Performed By: #### CBC ####[facility] Ibimbphood50[address] [place], [place] [address]Dr.Selenalan ChangEosinophils/100 WBC (Bld)6.3 %Normal 0.9-7.0The [facility] on above:Performed By: #### CBC ####[facility] [address] [place] [address]Dr.Airam Tripathi Erythrocyte distribution width (RBC) [Ratio]13.3 %Jsknfi99.0-15.0The [facility] CenterComment on above:Performed By: #### CBC ####[facility] Pnwnhmrxmt9[address] [place], [place] [address]Dr.Airam TripathiHematocrit (Bld) [Volume fraction]29.5 %Critically low36.0-48.0The [facility] CenterComment on above:Performed By: #### CBC ####[facility] Ouyffpevqa[address] [place], [place] [address]Dr.Selenaneil TripathiHemoglobin (Bld) [Mass/Vol]9.1 g/dL Critically low12.0-16.0The [facility] CenterComment on above:Performed By: #### CBC ####[facility] Csudvvqliw59[address] [place], [place] [address]Dr. Airam TripathiIG #0.04 10e3/ulCritically high0.00-0.03The [facility] CenterComment on above:Performed By: #### CBC ####[facility] Jqdvhrdqsc89[address] [place], [place] [address]Dr.Airam TripathiIG %0.7 %Critically high0.0-0.5The [facility] CenterComment on above:Performed By: #### CBC ####[facility] Zcngvtzcks7998[address] [place], [place] [address]Dr.Airam DeuceLYMPH #1.3 103/ulNormal1.2-3.8The [facility] CenterComment on above:Performed By: #### CBC ####[facility] Rueighqdwj54[address] [place], [place] [address]Dr. Selenaneil TripathiLymphocytes/100 WBC (Bld)20.9 %Lzkden51.5-60.0The [facility] Comment on above:Performed By: #### CBC ####[facility] Mtfteguakx[address] [place], [place] [address]Dr.Airam DeuceMANUAL DIFF REQNONormalThe [facility] CenterComment on above:Performed By: #### CBC ####[facility] [address] [address]Dr.Airam TripathiH (RBC) [Entitic mass]30.1 hcXrjagw60.7-34.0The [facility] CenterComment on above: Performed By: #### CBC ####[facility] [address] [place] [address]Dr.Airam DeuceHC (RBC) [Mass/Vol]30.8 g/dLNormal 29.9-35.2The [facility] HospitalComment on above:Performed By: #### CBC ####[facility] Trnzlaugpe5746[address] [place], [place] [address]Dr. Selenaneil TripathiV (RBC) [Entitic vol]97.7 nXPkttnb72.0-99.0The [facility] Comment on above:Performed By: #### CBC ####[facility] Qujtmtmzhj7426[address] [place], [place] [address]Dr.Airam TripathiMONO #0.4 103/ulNormal0.3-0.8 The [facility] CenterComment on above:Performed By: #### CBC ####[facility] Pyqypulypy488[address] [place], [place] [address]Dr.Selenaneil Tripathi Monocytes/100 WBC (Bld)6.6 %Normal1.7-12.0The [facility] CenterComment on above: Performed By: #### CBC ####[facility] Zeklgwestx[address] [place], [place] [address]Dr.Airam DeuceNEUT #4.0 103/ulNormal1.4-6.5The [facility] CenterComment on above:Performed By: #### CBC ####[facility] Krfkhszjcb6474[address] [place], [place] [address]Dr.Selenaneil TripathiNeutrophils/100 WBC (Bld)65.0 %Zcorno94.0-75.0The [facility] CenterComment on above:Performed By: #### CBC ####[facility] Qltgeciqdz0840[address] [place], [place] [address]Dr.Selenaneil TripathiPlatelet mean volume (Bld) [Entitic vol]9.4 fLCritically low 9.5-13.5The [facility] CenterComment on above:Performed By: #### CBC ####[facility] Lfyrftfqer9156[address] [place], [place] [address]Dr. Airam TripathiPLT224 103/qcWlhpkt473-345Rxm [facility] CenterComment on above: Performed By: #### CBC ####[facility] Mfwsnzeblr7358[address] [place], [place] [address]Dr.Airam TripathiRBC3.02 106/ulCritically low4.20-5.40[facility] HospitalComment on above:Performed By: #### CBC ####[facility] Igwktbfbmc7756[address] [place], [place] [address]Dr.Airam TripathiWBC6.1 103/ul Normal4.0-11.0The [facility] CenterComment on above:Performed By: #### CBC ####[facility] Ttwmwafril2856[address] [place], [place] [address]Dr. Airam ChangPROF 14(COMP METB)on 19-07-2429Xawcyzd [Mass/Vol]2.8 g/dLCritically low3.4-5.0[facility] HospitalComment on above:Performed By: #### CMP ####[facility] Riwejerjnj[address] [place], [place] [address]Dr. Airam ChangAlbumin/Globulin [Mass ratio]1.1 {ratio}NormalHocking Valley Community Hospital Comment on above:Performed By: #### CMP ####[facility] Yshujhsbpa6064[address] [place], [place] [address]Dr.Airam ChangALP [Catalytic activity/Vol] 116 U/KKszcdb74-410Nix [facility] CenterComment on above:Performed By: #### CMP ####[facility] Uyhrgtzahw8614[address] [place], [place] [address]Dr. Airam TripathiALT [Catalytic activity/Vol]23 U/ZJlpsvx32-77Cof [facility] Comment on above:Performed By: #### CMP ####[facility] Edzqypoxre3496[address] [place], [place] [address]Dr.Airam TripathiAnion gap [Moles/Vol]12.1 mmol/LNormalThe [facility] CenterComment on above:Performed By: #### CMP ####[facility] Vkakasnpvm4646[address] [place], [place] [address]Dr. Yilan ChangAST [Catalytic activity/Vol]23 U/WYvkffu93-72Ahm [facility] Comment on above:Performed By: #### CMP ####[facility] Qdwfkzehvg6520[address] [place], [place] [address]Dr.Yilan ChangBilirubin [Mass/Vol]0.2 mg/dL Normal0.2-1.0The [facility] CenterComment on above:Performed By: #### CMP ####[facility] Uvtoakyhiy1422[address] [place], [place] [address]Dr. Yilan ChangCalcium [Mass/Vol]8.1 mg/dLCritically low8.5-10.1The [facility] CenterComment on above:Performed By: #### CMP ####[facility] Vgctzqrsqs5[address] [place], [place] [address]Dr.Yilan ChangChloride [Moles/Vol]105 mmol/NUfpogi53-092Twv [facility] CenterComment on above:Performed By: #### CMP ####[facility] Utvrpjeoqi005[address] [place], [place] [address]Dr.Yilan ChangCO2 [Moles/Vol]22.1 mmol/HHivmub73.0-32.0The [facility] CenterComment on above:Performed By: #### CMP ####[facility] Cewvfenysj807[address] [place], [place] [address]Dr.Yilan ChangCreatinine [Mass/Vol]1.06 mg/dLCritically high0.55-1.02The [facility] CenterComment on above:Performed By: #### CMP ####[facility] Pdhpowvssp1335[address] [place], [place] [address]Dr.Yilan ChangEGFR-AF YEMENI>60Normal>=60The [facility] CenterComment on above:Performed By: #### CMP ####[facility] Ootkffrczs864[address] [place], [place] [address]Dr.Yilan ChangEGFR-NON AF KFPJVEYX46 mL/min/1.96t4Piremyfnbr low>=60The [facility] CenterComment on above: Performed By: #### CMP ####[facility] Fscuqqocdd1914[address] [place], [place] [address]Dr.Selenaneil DeuceGlobulin (S) [Mass/Vol]2.6 g/dLNormalThOhioHealth Shelby HospitalComment on above:Performed By: #### CMP ####[facility] Xkgzymfpqs1605[address] [place], [place] [address]Dr.Airam DeuceGlucose [Mass/Vol]109 mg/dLCritically zdqu96-284Kur [facility] CenterComment on above: Performed By: #### CMP ####[facility] Hhvfeddope1590[address] [place], [place] [address]Dr.Airam DeucePotassium [Moles/Vol]4.2 mmol/LNormal 3.5-5.1The [facility] CenterComment on above:Performed By: #### CMP ####[facility] Imzdiwrygw7667[address] [place], [place] [address]Dr.Airam Tripathi Protein [Mass/Vol]5.4 g/dLCritically low6.4-8.2The [facility] CenterComment on above:Performed By: #### CMP ####[facility] Vktdrbtknd4654[address] [place], [place] [address]Dr.Airam ChangSodium [Moles/Vol]135 mmol/LCritically ivs666-112Wml [facility] CenterComment on above:Performed By: #### CMP ####[facility] Lcnxhfjlyu6617[address] [place], [place] [address]Dr. Airam ChangUrea nitrogen [Mass/Vol]15.0 mg/dLNormal7.0-18.0The [facility] Comment on above:Performed By: #### CMP ####[facility] Ivocbhzmrs[address] [place], [place] [address]Dr.Airam ChangUrea nitrogen/Creatinine [Mass ratio]14.2 mg/mgNormalThe [facility] CenterComment on above:Performed By: #### CMP ####[facility] Cmxazhhzzu9715[address] [place], [place] [address]Dr. Yilan ChangOperative Reporton 88-39-2023Nwvddnreo ReportMR#: [id number] S [facility] Pt. Name: Mabel Moser Room #: [...] subscapularis. 3. Right shoulder proximal biceps tenotomy. NATURAL RESOURCES SPECIALIST: Alex Serra M.D. ANESTHESIA: General. INDICATIONS: The [...] Reza M.D. Date Trans: 08/19/2021 11:37 A/carter DN_JN:[id number] cc: Yuri Santana M.D. [address] [place] [address]YgrslbIwqTrumbull Memorial Hospital GLUCOSE LABon 36-44-2275Kzawqev [Mass/Vol]77 mg/nQSndhiz97-546Sib [facility] HospitalComment on above:Performed By: #### [id number] #### [facility] [place] [address], USACNPNon [id number] (HEMASA) MABEL MOSER ([id number]) 1960 F Date Time Provider Department 04/05/21 YEVGENIY FORD During your visit today, we recorded the following information about you: Chana Gallegos [facility] 04/05/2021 7:57 AM Signed Records faxed to the cancer center at [facility]. Patient to follow with Dr. Liu. [...] neuroge*08/15/2016 Encounter Status:Closed by CHANA LEE on 04/05/21[facility]OBSSELAMkeyur 83-87-1380SYVQWHZGKabwzd (HEMASA) MABEL MOSER ([id number]) 1960 F Date Time Provider Department 01/11/21 [...] month. Encounter Status:Closed by YEVGENIY FORD on 01/12/21[facility] Vital Signs Date TimeVital SignValuePerforming AqursvpwcMoqhtshy31-36-2168 11:06-0400Body dxxiar007.48 cmYuri Santana MD Work Phone: [phone] [place], [place] [address]007-22-2025 11:06-0400 Body mass index (BMI) [Ratio]35.5 kg/t7TgcttlfYuri Santana MD Work Phone: [phone]07-22-2025 11:06-0400 Body uckhfu81.22 kgYuri Santana MD Work Phone: 2(185)182-[address] [place], [place] 1932007-22-2025 11:06-0400 Diastolic blood yrpbrwxq83 mm[Hg]Yuri Santana MD Work Phone: 1(762)556-[address] [place], [place] 1932007-22-2025 11:06-0400 Heart rate79 /Mary Grace Santana MD Work Phone: 3([phone] [place], [place] 1932007-22-2025 11:06-0400 Respiratory rate16 /Mary Grace Santana MD Work Phone: [phone] [place], [place] [address]007-22-2025 11:06-0400 SaO2% (BldA) [Mass fraction]98 %Yuri Santana MD Work Phone: [facility]07-22-2025 11:06-0400 Systolic blood ywmmnjhp077 mm[Hg]Yuri Santana MD Work Phone: [facility]04-09-2025 14:44-0400 Body vlyhvj576.48 cmW[facility]04-09-2025 14:44-0400Body mass index (BMI) [Ratio]42.2 kg/n1RqqxlkepzWvumedicine [facility]04-09-2025 14:44-0400Body fajwwd812.77 kgW[facility]umedicine [facility]04-09-2025 14:44-0400Diastolic blood lzzojmol70 mm[Hg][facility] 10-02-2024 14:44-0400Heart rate76 /[facility] 10-02-2024 14:44-0400Respiratory rate16 /[facility] 10-02-2024 14:44-1198EsF7% (BldA) [Mass fraction]100 %[facility]04-09-2025 14:44-0400Systolic blood gzrkssfo968 mm[Hg][facility]10-01-2024 11:47-0400Body mass index (BMI) [Ratio]41.1 kg/m2 [facility]10-01-2024 11:47-0400Diastolic blood abcifmmi08 mm[Hg][facility]10-01-2024 11:47-0400Heart rate81 /min [facility]10-01-2024 11:47-0400Respiratory rate18 /min [facility]10-01-2024 11:47-8221UgN7% (BldA) [Mass fraction]92 %[facility]10-01-2024 11:47-0400Systolic blood upymdczy133 mm[Hg][facility]10-01-2024 08:52-0400 Body ovphym364.48 cmW[facility]umedicine [facility]10-01-2024 08:52-0400Body jolqihlegch85.1 [degF][facility]10-01-2024 08:52-0400Body pnwuhb207.05 [facility]09-10-2024 13:52-0400Blood Pressure LocationMichael NILL 800-8835Vhuxko-SmjsdBarney [facility]09-10-2024 13:52-0400Diastolic blood hvtxczxo99 mm[Hg]Migel NILL [phone]-JclolBarney Children'S Medical Center09-10-2024 13:52-0400Heart rate77 /minMichael NILL 540-7174Ehmdhb-KrkolBarney Children'S Medical Center09-10-2024 13:52-0400Respiratory rate16 /minMichael NILL [phone]-DhfhlBarney Children'S Medical Center09-10-2024 13:52-0400Systolic blood mm[Hg]Migel NILL [phone]-OtivuBarney Children'S Medical Center01-08-2024 12:00-0500Body zlypvqsdcgo27.9 [degF]MD Yuri Santana Work Phone: [phone] [place], [place] 1932001-08-2024 12:00-0500 Diastolic blood dzydwbsa38 mm[Hg]MD Yuri Santana Work Phone: [phone]01-08-2024 12:00-0500 Heart rate68 /minMD Yuri Santana Work Phone: 1([phone])793-[address] [place], [place] 1932001-08-2024 12:00-0500 Respiratory rate16 /minMD Yuri Santana Work Phone: [phone]01-08-2024 12:00-0500 SaO2% (BldA) [Mass fraction]100 %MD Yuri Santana Work Phone: [phone] [place], [place] 1932001-08-2024 12:00-0500 Systolic blood yifpampa073 mm[Hg]MD Yuri Santana Work Phone: [phone]01-08-2024 04:49-0500 Body taxtom20.8 kgMD Yuri Santana Work Phone: [facility]01-05-2024 14:44-0500 Body fmkizp141.48 cmMD Yuri Santana Work Phone: [facility]10-10-2023 16:20-0400 Body nmpoqn421.75 cmAbreonna Tadjohnnie Other [employer] Other 133107-35-2712 16:20-0400Body mass index (BMI) [Ratio] 31.46 kg/m2Raeann Tadjohnnie Other [employer] Other 10-10-2023 16:20-0400Body oylteavxhfu59 [degF]Raeann Harrisonkendalljohnnie Other [facility] Other 10-10-2023 16:20-0400Body cugtey07.29 kgRaeann Tadjohnnie Other [employer] Other 10-10-2023 16:20-0400Diastolic blood mm[Hg] Raeann Harrisonkendalljohnnie Other [employer] Other 10-10-2023 16:20-0400Respiratory rate18 /minRaeann Harrisonkendalljohnnie Other [employer] Other 10-10-2023 16:20-0983ZeF6% (BldA) [Mass fraction]98 % Raeann Tadjohnnie Other [employer] Other 10-10-2023 16:20-0400Systolic blood umdedojb585 mm[Hg] Raeann Tads Other [employer] Other 05-05-2023 22:23-0400Body gqofsvakpiz26.4 [degF]MD Yuri Santana Work Phone: [phone] [place], [place] 1932005-05-2023 22:00-0400 Diastolic blood fimjdvjj71 mm[Hg]MD Yuri Santana Work Phone: [phone] [place], [place] 1932005-05-2023 22:00-0400 Heart rate72 /minMD Yuri Santana Work Phone: 1([phone] [place], [place] 1932005-05-2023 22:00-0400 Respiratory rate20 /minMD Yuri Santana Work Phone: 1([phone] [place], [place] 1932005-05-2023 22:00-0400 SaO2% (BldA) [Mass fraction]97 %MD Yuri Santana Work Phone: [phone]05-05-2023 22:00-0400 Systolic blood fvchfsoz714 mm[Hg]MD Yuri Santana Work Phone: [phone]05-05-2023 17:54-0400 Body tsxkyv550.48 cmMD Yuri Santana Work Phone: [phone] [place], [place] 1932005-05-2023 17:54-0400 Body .7 kgMD Yuri Santana Work Phone: 1([phone] [place], [place] 1932004-04-2023 12:00-0400 Body cxjsno350.75 Laura Casimiro Other [employer] Other 04-04-2023 12:00-0400Body mass index (BMI) [Ratio] 31.78 kg/m2Raeann Casimiro Other [employer] Other 04-04-2023 12:00-0400Body qjpbpugxyry52.1 [degF]Raeann Casimiro Other [facility] [employer] Other 04-04-2023 12:00-0400Body .11 kgRaeann HunterDailyBooth Other [employer] Other 04-04-2023 12:00-0400Diastolic blood iopkeyfb53 mm[Hg] Azariel Kirkpatrick Other [employer] Other 04-04-2023 12:00-0400Respiratory rate18 /minRaeann Kirkpatrick Other [place] [employer] Other 04-04-2023 12:00-8644UqJ9% (BldA) [Mass fraction]99 % Azariel Kirkpatrick Other [employer] Other 04-04-2023 12:00-0400Systolic blood cbdwmiol126 mm[Hg] Raeann Kirkpatrick Other [employer] Other 10-18-2022 14:00-0400Body izpult932.75 cmAbreonna Harrisonkendalljohnnie Other [employer] Other 10-18-2022 14:00-0400Body mass index (BMI) [Ratio] 30.13 kg/m2Raeann Kirkpatrick Other [employer] Other 10-18-2022 14:00-0400Body dtfqiefhzhr57.6 [degF]Raeann Kirkpatrick Other [employer] Other 10-18-2022 14:00-0400Body yeoqpy60.93 kgRaeann Kirkpatrick Other [employer] Other 10-18-2022 14:00-0400Diastolic blood oqlqntlc43 mm[Hg] Raeann Mishras Other [employer] Other 10-18-2022 14:00-0400Respiratory rate18 /minRaeann Kirkpatrick Other [employer] Other 10-18-2022 14:00-0952LpC0% (BldA) [Mass fraction]98 % Raeann Kirkpatrick Other [employer] Other 10-18-2022 14:00-0400Systolic blood fzpbhhzu684 mm[Hg] Raeann Kirkpatrick Other [employer] Other 12-22-2021 16:20-0500Body twsrat501.75 cmEalexairvin Abiodungerald Other [employer] Other 12-22-2021 16:20-0500Body mass index (BMI) [Ratio] 30.88 kg/v7JpovzLos Grissom Other [employer] Other 12-22-2021 16:20-0500Body nbpxqnmaygw80.4 [degF]Bryonirvin Grissom Other [employer] Other 12-22-2021 16:20-0500Body .84 kgLos Grissom Other [employer] Other 12-22-2021 16:20-0500Diastolic blood ebdbkubv25 mm[Hg] Los Grissom Other [employer] Other 12-22-2021 16:20-0500Respiratory rate18 /minEfidelina Grissom Other [employer] Other 12-22-2021 16:20-5506OnJ5% (BldA) [Mass fraction]99 % Los Grissom Other [facility] [employer] Other 220027-10-7052 16:20-0500Systolic blood dtuncnhq581 mm[Hg] Los Grissom Other [facility] [employer] Other Encounters Encounter DateEncounter TypeCare ProviderFacilityStart: 04-28-2025 End: 09-12-7562fnpjdnwnyxSUHKEN [facility] Start: 04-28-2025 End: 18-78-3113Ngvgspjjr for preprocedural cardiovascular examinationGEORSelect Medical Specialty Hospital - Cleveland-Fairhilltart: 04-08-2025 End: 71-45-3624qpzexlfnnbVQRYT [facility] Hospitalt[facility]: 02-10-2025 End: 64-42-2692retikmfrfzKpqblqmAlea Smith MDFacility:PM [employer] Start: 01-14-2025 End: 90-35-8054kzyzlwnlliIhponye M Hoy MD Work Phone: [facility] Work Phone: Start: 01-14-2025 End: 76-61-4437Uczlfdi encounter procedureRaeann Kirkpatrick MD-[facility] Neph[facility] [place] Work Phone: Start: 72-06-3473Wny-patient / Non-visitRaeann Kirkpatrick MD-[facility] [employer] Work Phone: Start: 12-09-2024 End: 06-24-3548nnfpaooqfiNpvvkekAngelique Smith MDFacility:PM [employer] Start: 10-11-2024 End: 71-92-4624yuubcrnuwpWFFDHK [facility] Start: 10-07-2024 End: 96-60-4809fdlpkkjmgwAsmrgckAngelique Smith MDFacility:PM [facility] Start: 10-02-2024 End: 49-70-3539pknwonenxwRsmqjmdciMarymount Hospital Work Phone: Start: 10-02-2024 End: 05-88-3661Vyfsgau encounter procedureFirmartinsville memorial hospital [facility] Work Phone: Start: 09-09-2024 End: 92-03-0504rbxmubldlcTHVIC ELATTARUniversity of [facility] Health [facility] Athens Hospitaltart: 09-09-2024 End: 04-62-1786jobyisatsgYOKDA ELATTARUniversity of [facility] Health [facility] Athens Hospitaltart: 08-08-2024 End: 06-32-6776sqngbkpnegYXIUY ELATTARUniversity Wise Health Surgical Hospital at Parkwaytart: 21-85-6087Niz-patient / Non-visitFirjayy Physician [facility] [employer] Work Phone: Start: 99-20-5194hhizjkotpvNJYGJVSutter Tracy Community Hospitaltart: 05-83-9706nfdjnwtiarBZERKLBaldwin Park Hospitaltart: 22-73-9505aqusgnhaftNIIKZWFairmont Rehabilitation and [facility] Center Start: 03-26-2024 End: 10-26-0507nywjdsbjrgDggfzzfzgMarymount Hospital Work Phone: Start: 03-26-2024 End: 79-35-4434Jbforfb encounter procedureUnc Health Johnston [facility] Neph[facility] [place] Work Phone: Start: 03-05-2024 End: 65-42-8872owfalbfmndQixpztf R NILLFacility:GS BellmagaliueStart: 03-05-2024 End: 50-77-1945Wwcmwev encounter procedureMichael R NILL [phone]-Jwmrb General Surgery [employer] Start: 01-22-2024 End: 41-06-6204Vvbsachhvu and management of inpatientAMER ARI SANTOSH [facility] Centertart: 65-68-9090ttyvzlqpqiFBLBKDQ M [facility] Ambulatory PPGStart: 09-30-2023 End: 15-18-2808Eorlobwoka and management of inpatientSBRYAN Core[facility] CenterStart: 07-11-2023 End: 42-50-1061leuifctocjYpln Bakhous Other [employer] Other Start: 14-45-8069Ieqjltwwf encounterAziz BakhousFPG NephrologyStart: 06-29-2023 End: 57-76-3207Kvpxjcmuqa and management of inpatientSlilia Randhawa Facility:[facility]tart: 06-29-2023 End: 61-34-0175Uolriswfqp and management of inpatientMD Yuri Santana Work Phone: [facility] [place] [facility] Work Phone: Start: 04-04-2023 End: 28-89-4081gablbcefmzNnad Bakhous Other [facility] [employer] Other Start: 84-17-4026Mutphu outpatient visit 25 minutes Aziz BakhousFPG NephrologyStart: 04-03-2023 End: 50-56-5642jrkhrarplfGkye Bakhous Other [facility] [employer] Other Start: 70-90-1294Iigjetrvn encounterAziz BakhousFPG NephrologyStart: 12-12-2022 End: 49-43-6556pcbniqjgnzFszl Bakhous Other [facility] [employer] Other Start: 36-29-3854Ohbqbhixq encounterAziz BakhousFPG NephrologyStart: 12-08-2022 End: 10-54-9384qrxthsitttXjcw Bakhous Other [place] [employer] Other Start: 01-84-4838Txpylivrk Dilcia Connors NephrologyStart: 11-22-2022 End: 78-08-6740hhbupykkoiXM YURI HOY .Facility:B9Yknzs: 11-22-2022 End: 50-62-2889ynjhzelzjtECGMOYWGKMPY LAKSHMIPATHY .Facility:O5Mcziv: 11-16-2022 End: 70-93-9554rnbwmsmvwlMU YURI HOY .Facility:G3Wjzlo: 11-04-2022 End: 40-02-1021vozjgcmvpsAHPXLTTHZAUV LAKSHMIPATHY .Facility:P8Ydtwc: 11-03-2022 End: 55-26-3415ntwkcjakhzSB YURI HOY .Facility:P6Uaeex: 32-78-3903qnbhrkqaje SANTOS ROUSSEAU .Facility:T7Axmlu: 10-28-2022 End: 38-21-7905Mlxrzucua department patient visitArthjuly Aime Helm [facility] 10-28-2022 End: 98-25-4436Vqyejapka department patient visitMD Yuri Hoy Work Phone: [facility] Work Phone: Start: 10-27-2022 End: 39-43-0834oovaosaqirQJHPDIABBTZP LAKSHMIPATHY .Facility:B7Ugnqf: 10-25-2022 End: 96-75-1990Hflbtdzbbt and management of inpatientDR YURI HOY .Facility:H1 Start: 10-19-2022 End: 63-69-3331brthybqwcqAW YURI HOY .Facility:W3Kbqmu: 10-12-2022 End: 54-26-3745cpautaevppTN YURI HOY .Facility:K9Lwpof: 10-12-2022 End: 62-18-8547emdhmprsgoXIYG TAMLYN .Facility:D5Cggqk: 10-11-2022 End: 17-77-3178kixscosjwyYCDKQKUOZEHL LAKSHMIPATHY .Facility:R0Plfqk: 10-05-2022 End: 18-70-3366tmvxicdholCY YURI HOY .Facility:O4Vegjb: 63-03-3504xmihdpfwzl FELECIA TAMLYN .Facility:K5Melos: 09-29-2022 End: 47-35-1635eypptrlrhjKL YURI HOY .Facility:P8Qkwic: 09-27-2022 End: 53-28-6986duramthaiqYwbz Tads Other [facility] [employer] Other Start: 11-94-7842Jsielq outpatient visit 25 minutes [facility] Nephrology ClydeStart: 09-21-2022 End: 41-57-1119ofvrjhjqzcQM YURI HOY .Facility:W1Sjnpl: 09-20-2022 End: 77-65-4029uwbmqzyqrsMCNJHUHZPSIE LAKSHMIPATHY .Facility:W8Fmciz: 09-19-2022 End: 33-01-8887krfidgcdqmQL YURI HOY .Facility:I5Lapxe: 09-19-2022 End: 53-50-0228ksbilqodwcUIBL BAKHOUSFacility:O6Mwehd: 08-24-2022 End: 80-53-3498igjaohnpavNV YURI HOY .Facility:G4Tydfe: 08-23-2022 End: 99-42-5941brrylaynkmOxlwtzb Calvey Other [facility] [employer] Other Start: 31-69-6286Rnehlv outpatient new 30 minutes SueKaiser [facility] CenterFPG [facility] OrthopedicsStart: 08-16-2022 End: 61-30-3306ckufmxdeloJF YURI HOY .Facility:N3Kyjiz: 08-06-2022 End: 60-44-4347eyyyhuqdmcYOESHY DIAB .Facility:F0Csxgt: 07-27-2022 End: 50-82-6248smkhmrxvrpTR YURI HOY .Facility:I2Folpy: 07-27-2022 End: 51-83-5386duqwmiwzjfXO YURI HOY .Facility:S6Sbfmd: 06-29-2022 End: 71-92-3245kepwumybfmBP YURI HOY .Facility:X4Xnnep: 06-16-2022 End: 19-96-9919Fcrrcublzc and management of inpatientDR YURI HOY .Facility:H1 Start: 06-07-2022 End: 67-68-0817dwqyxfeqiwDY YURI HOY .Facility:F7Fpbji: 05-26-2022 End: 88-20-8367vhobvhxbcmOW YURI HOY .Facility:G7Ocwow: 05-17-2022 End: 45-53-5411sapvvyufbbJS YURI HOY .Facility:U3Icesk: 05-03-2022 End: 40-52-4392iocvaqnlpkBH YURI HOY .Facility:F6Jtvkw: 04-28-2022 End: 69-05-0235yxvbdlamuzTQ YURI HOY .Facility:O8Grvrh: 04-28-2022 End: 37-10-8476caiuwpgugaMF YURI HOY .Facility:D5Iehpv: 04-12-2022 End: 61-30-4193vfgunjgtqnPhqg Bakhous Other [place] [employer] Other Start: 91-04-0248Idgoqn outpatient visit 25 minutes [facility] Nephrology ClydeStart: 43-33-4777fcbhdqlxlcTD YURI HOY . Facility:K3Msuvw: 03-31-2022 End: 23-26-4583fbijhwoikbLR YURI HOY .Facility:K1Bfrkw: 03-03-2022 End: 43-05-9136jsllhoixprBN YURI HOY .Facility:G2Mhszf: 01-27-2022 End: 12-84-8495fmipeyvhbsVE YURI HOY .Facility:S8Rwcly: 01-27-2022 End: 65-14-3808jycxjfkrybWV YURI HOY .Facility:J2Rpvgd: 01-19-2022 End: 69-72-9129dautvwshcpWMIZU SCHROMarshfield Medical Center/Hospital Eau Clairecility:C6Smcba: 01-11-2022 End: 23-70-8353sxydftgsnbRR YURI HOY .Facility:F6Qhnek: 01-10-2022 End: 55-30-1965fobsurzinbEvnti Fabiolacility:[email or web address]]tart: 01-06-2022 End: 74-78-4013byrbjagpaoWE YURI HOY .Facility:T7Mtcwh: 12-30-2021 End: 15-81-6055sarvjalxagEG YURI HOY .Facility:C4Amuyx: 12-23-2021 End: 82-39-1019clpzvtlrcmWHDE DEJESUS .Facility:J9Wtkgv: 12-07-2021 End: 31-52-5240nookufztlpTU YURI HOY .Facility:O3Knvpc: 12-07-2021 End: 81-14-6873pcdbmevlgcCK YURI HOY .Facility:I8Gmxkj: 08-19-2021 End: 01-46-5836ybhoqbjxtmHARVQ Deepak SOHNFacility:[facility]ENTERtart: 06-16-2021 End: 49-87-5568vwtztdxbxeOwvrs Elashi Other [place] [facility] Other Start: 69-32-7691Zzvwui outpatient visit 25 minutes [facility] Kaitlynn NephrologyStart: 01-14-2019 End: 89-80-3477Zpfsmcq [facility] Start: 12-03-2018 End: 40-60-9567Vyjqpfi encounter [facility] Procedures DateProcedureProcedure DetailPerforming ClinicianStart: 46-70-0849JK of head without contrastMD Yuri Hoy Work Phone: Start: 19-59-6761Uniij chest X-rayMD Yuri Hoy Work Phone: [phone]: 74-52-8625Hwrvrzehj of implantable venous access portMichael NILL Start: 44-25-4806UICUHUVYM PATIENTWADE art: 58-34-5267EDZM NPO, NOWNIRMAL art: 82-67-1756EUUN CODEWADE art: 31-67-3964MIPVDKMU OXYGEN THERAPY PROTOCOLWA: 81-43-9651WGMISV PHYSICIAN (SPECIFY)NIRMAL art: 41-58-4646PBOQCNY COMMUNICATIONWADE Start: 22-42-8594LWGVWX INFORMED CONSENTWADE : 42-57-2835PPCAQ SIGNS : 67-78-3640QLAJMKCWI PATIENTWADE : 30-84-2030EQBC NPO, NOWWAKS : 12-33-4131YZLH CODEDE : 48-93-8357FNFDJRVM OXYGEN THERAPY PROTOCOLWA: 83-62-5494RNJOIL PHYSICIAN (SPECIFY)NIRMAL : 78-51-9474ALQZFKI COMMUNICATIONWADE : 54-40-8535TJGMFS INFORMED CONSENTWADE : 83-27-4817XFUKQ SIGNSWA: 61-84-6728Exxumpoqh of implantable venous access portMichael NILL Start: 32-61-9402Sbxk-en-Y - action (qualifier value) Migel NILL Arthroplasty of kneeMichael NILL Cardiac catheterizationMichael NILL Cervical arthrodesisMichael NILL Cervical laminectomyMichael NILL CholecystectomyMichael NILL Removal of implantable venous access portMichael NILL Repair of musculotendinous cuff of shoulderMichael NILL Plan of Treatment DateCare ActivityDetailAuthorStart: 48-71-3375UofjscwplWvumedicine [facility] Start: 82-68-8784Dybzyfuh admissionBarnesville Hospitaltart: 59-07-0371Ieklejyy to nephrologistWvumedicine Barnesville HospitalBlood chemistryWvumedicine Barnesville HospitalPatient EducationFostoria City Hospital Ctr Work Phone: Patient referralFostoria City Hospital Ctr Work Phone: Renal function 1999 panel - Serum or PlasmaWvumedicine Barnesville HospitalRenal function 1999 panel - Serum or PlasmaWvumedicine Barnesville HospitalRenal function 1999 panel - Serum or PlasmaJohn [facility] Center Immunizations Immunization DateImmunizationNotesCare WenqlzynWvixrkah90-39-0228wfbnpunnh virus vaccine, unspecified formulationMichael NILL 541-2561Sjvtyw-PbmqqMer[facility] Health [facility] 19-41-1773AXBJ-CoV-2 (COVID-19) mRNAMUL.ORD!a49443Zpwnawp NILL 487-5676Qjeccx-ToydeMercy Health Lorain Hospital 30-17-7084KMSN-CoV-2 (COVID-19) mRNA-1273 vaccineMichael NILL 087-2140Cuokie-FqvxbMercy Health Lorain Hospital Comment on above:Result Comment: 2024-02-12: PSH8070-95-4324UJWJ-FiE-9 (COVID- 19) mRNA-1273 vaccineMichael NILL 951-4839Ryjrsu-ChvlgMercy Health Lorain Hospital 14-24-2034zgwpnpqfenax conjugate vaccine, 13 valentMichael NILL 391-7028Erbqfy-OxnheSouthwest General Health Center BellevueNEGATED: Highlighted row has not occurred!79-01-1422eysfwhchy virus vaccine, unspecified formulationMichael NILL 405-6356Ugkvyz-GjrilSouthwest General Health Center [place] Payers DatePayer CategoryPayerPolicy [id number]24 [id number] 2018Unknown [id number] 2.16.840.1.207262.3.579.2. [id number] 2.16.840.1.065423.3.579.2.05141-06-2074Yuqkile12199328 2.16.840.1.542745.3.579.2.58688-86-7769Tpfyhcg54823661 2.16840.1.988990.3.579.2.75707-19-8172Oiitjpn5335636 2.16840.1.709405.3.579.2.73486-47-7872Cykmvdt6611806 2.840.1.763490.3.579.2.13554-40-3038Ufwffdw6336232 2.840.1.657304.3.579.2.17820-84-2449Cxnmupu9736746 2.840.1.040210.3.579.2.08817-14-5044Bfntkri6855501 2..840.1.839067.3.579.2.06304-33-7127Bxfsqnq6982723 2.16.840.1.222516.3.579.2.03381-24-1774Oxdkzuv9565908 2.16840.1.403118.3.579.2.27963-80-3518Fayvotx0593262 2.16840.1.319372.3.579.2.23388-32-3564Yeuxkbh0812886 2.16.840.1.463837.3.579.2.39586-98-0133Mopdpmx4521321 2.16.840.1.099410.3.579.2.18848-67-2187Sukrukv0615784 2.16840.1.924085.3.579.2.35600-05-3164Zyoycor6400187 2.16.840.1.224719.3.579.2.29848-44-9149Ikqwibs8728214 2.16.840.1.455214.3.579.2.40261-96-3366Llzdxwi7960549 2.16.840.1.750057.3.579.2.37047-84-6769Obqozrl6279187 2.16.840.1.675855.3.579.2.97081-32-3695Vmagovq0744149 2.16.840.1.971302.3.579.2.61682-98-3760Zzlwpuk6723771 2.16.840.1.339496.3.579.2.97662-02-9862Whfoqlj1340053 2.16840.1.195146.3.579.2.04062-25-1512Eiaiqlg4990020 2.16.840.1.950225.3.579.2.57996-64-0122Kiekrak0372071 2.16.840.1.638551.3.579.2.75941-62-3621Jiwsqqn9746470 2.16.840.1.690322.3.579.2.05702-21-6927Nkrsgfb2349035 2.16.840.1.678308.3.579.2.71272-70-9951Kmsslpq7753643 2.16.840.1.427734.3.579.2.03432-11-8775Vbshogf5871444 2.16.840.1.770135.3.579.2.00224-91-1872Aksvohi0422765 2.16.840.1.408087.3.579.2.19170-10-1530Khdwkwv5374417 2.16.840.1.940623.3.579.2.71095-66-1498Cnpfzzz5519021 2.16.840.1.630398.3.579.2.93239-68-6895Xqifgqp2103857 2.16.840.1.672331.3.579.2.45533-23-9045Qikvsog8976257 2.16840.1.134180.3.579.2.39183-75-8537Igqzgjs0362271 2.16840.1.373291.3.579.2.73768-60-3699Omkhsgg4653363 2.840.1.625206.3.579.2.18605-28-6036Ojqvhqi0335341 2.840.1.293799.3.579.2.91020-06-4209Upnbchy6324713 2.840.1.494455.3.579.2.22867-38-9989Rxrhflo1122936 2.840.1.727951.3.579.2.28179-05-2608Xttltdd8374667 2.840.1.942999.3.579.2.84957-89-7861Tnpjyko4702962 2.840.1.824082.3.579.2.20612-72-4688Zbqhllh6787500 2.840.1.785928.3.579.2.71804-73-0760Htkpeqi1119513 2.16840.1.340823.3.579.2.13224-76-5481Xrelyth1304044 2.16840.1.262773.3.579.2.01163-39-4624Keinhcf6375687 2.16840.1.706436.3.579.2.72339-75-8898Vsgifpi2428850 2.16840.1.623765.3.579.2.78594-65-7862Dtsnzmb7833934 2.16840.1.951637.3.579.2.29205-83-6577Ocsjmoi1067439 2.16840.1.702152.3.579.2.93880-31-1634Dkieapq8528166 2.840.1.692321.3.579.2.64888-57-3034Ulfixru0832530 2.840.1.049966.3.579.2.99059-69-3609Jcnropi9330077 2.840.1.820766.3.579.2.21018-83-7286Lpbzviq80445798 2.840.1.735553.3.579.2.503597-13-1591Cokzhci85435519 2.840.1.503349.3.579.2.67283-09-8288Gnztopf767989793 2.840.1.424365.3.579.2.95113-90-1417Wmzvcfq617407266 2.840.1.970006.3.579.2.75672-89-1148Rswaoyh27662756 2.840.1.297741.3.579.2.270547-61-0188Ncqbups70035565 2.840.1.228134.3.579.2.256931-75-8913Luseszk09319405 2.840.1.007869.3.579.2.047488-79-6304Oefklcx41940850 2.840.1.425435.3.579.2.379000-88-9973Tcwkrev871019734 2.840.1.259349.3.579.2.35695-60-4380Yetewas344417081 2..840.1.085960.3.579.2.33980-64-3078Grtsoew705774655 2.16.840.1.772692.3.579.2.196 [id number] 2.16.840.1.059434.19UnknownAnthem /[id number] 7n954f06-e6n0-1b0u-p69i-726685o7q26xAyqlodc52955523 2.840.1.431803.3.579.2.290Rdcuarr60547017 2.0.1.839987.3.579.2.531 Social History DateTypeDetailFacilityUnknown if ever smokedNort TwoTen Other Sex Assigned At [facility] Start: 10-28-2022 End: 32-47-1460Rftctfs smoking status NHISNever smoked tobacco (finding) [facility]: 81-68-6885Dyf Assigned At [facility] HospitalTobacco smoking statusNeWhite Hospitaltart: 27-40-3151EnmAjjpkg (finding)[facility] Goals DatePatient GoalDesired Activity/State Functional Status QkvyUjxykakuyeQqffkuOwypupyv52-93-0456Oqzzebxanj StatusN/AFKettering Health Miamisburg01-08-2024Functional statusPatient at BaselineUniversity Hospitals Geneva [facility] Work Phone: Mental Status LyyvVxmoaekxecHnxpccObujqinp02-11-9012Cfkqsqtdp functionCognitive Status Patient at BaselineUniversity Hospitals Geneva [facility] Work Phone: Clinical Notes 06-16-2021 to 04-28-2025 Note Date & HkyvGvdiRigxxiys04-32-3234 NoteUT Cardiology - [facility] Subjective Mabel Moser is a 65 y.o. year old female patient being seen for 6 month follow up. Patient states she is having Left shoulder replacement surgery at [facility] May 28. Dr. Reza Patient states [...] In the past she was admitted to [facility] in 2019 with fluid overload [...] work showed acute re (more content not included)...[facility]10-14-2025 Note Attestation signed by Carlos Reza MD [...] retention including worsening edema and weight gain detbnvsbxu-frrezcleedrjk-kzzn 50-325-40 mg tablet 1 tablet, oral butorphanol [...] times daily ergocalciferol (Vitamin D-2) 1.25 MG (99288 Units) capsule 1 capsule escitalopram (Lexapro) 20 [...] cyst formation with (more content not included)... [facility]04-18-2025 NoteUT Cardiology - [facility] Subjective Mabel Moser is a 64 y.o. year old female patient being seen for 6 month follow up . Patient states she saw the Business Office Specialist last week and he took her off [...] C heart failure with preserved ejection fraction ([facility]/HCC) H/O gastric bypass Gouty arthropathy Gastroesophageal reflux [...] cerebral infarction (CMS/HCC) Chronic congestive heart failure ([facility]/HCC) Fall at home, initial encounter Irritable bowel [...] In the past she was admitted to [facility] in 2019 with fluid overload [...] pressures and her blood (more content not included)...[facility]03-17-2025 Note Orthopedic Surgery Visit Description: New patient [...] Anxiety Arthritis Asthma CHF (congestive heart failure) ([facility]) Coronary artery disease Depression Gastroenteritis Heart valve disease Hypertension Kidney failure Lumbar spondylolysis Stroke (CMS/[facility]) Objective General: BMI 41.34 General: No acute [...] satisfaction. Pepito Almeida MD Orthopedic Surgery, PGY-5 [facility] Pager: [phone] 09/09/24 This note was created with the [...] may be an additional personal documentation from me.[facility]09-10-2024 NoteGeneral Surgery Office/Clinic Note Chief Complaint consultation [...] tab(s), Oral, BID butorphanol 10 mg/mL Nasal [place], 1 spray(s), Nasal, Daily, PRN cyanocobalamin 1000 [...] Oral, BID Fioricet or (more content not included)...[facility] HospitalComment on above:Result Comment: Electronically Signed By: FAYE ASCENCIO, Migel Cruz\Date and Time Signed: 03/05/24 14:27 [id number] Progress note Author [facility] July 03, 2023 12:18pmNote Date/TimeJan2023 12:18pmLena[place] [address] Nephrology Progress Note Signed Patient: Mabel Moser MR#: [id number] : 1960 Acct:[id number] Age/Sex: 63 / F Adm Date: 4 Loc: Room: [address] [place] [address] Type: ADM IN Attending Dr: Jim Randhawa [...] 50 Mg Tablet) 150 mg PO QHS [facility] Stop: 06/29/24 21:59 Last Admin: 07/02/23 21:00 Dose: 150 mg Aripiprazole (Aripiprazole 2 Mg Tablet) 2 mg PO DAILY [facility] Stop: 06/29/24 08:59 Last Admin: 07/03/23 08:13 Dose: 2 mg Bisacodyl (Bisacodyl 5 Mg Tablet.) 10 mg PO DAILY PRN PRN Reason: Constipation Stop: 06/28/24 21:34 Bumetanide (Bumetanide 1 Mg/4 Ml Vial) 1 mg IV-PUSH BID@0800,1600 [facility] Stop: 06/29/24 07:59 Last Admin: 07/03/23 08:14 Dose: 1 mg Calcium Acetate (Calcium Acetate 667 Mg Capsule) 667 mg PO BID.WITH.MEALS [facility] Stop: 06/29/24 07:59 Last Admin: 07/03/23 08:13 Dose: 667 mg Duloxetine HCl (Duloxetine 60 Mg Capsule.) 120 mg PO DAILY [facility] Stop: 06/29/24 08:59 Last Admin: 07/03/23 08:13 Dose: 120 mg Fentanyl (Fentanyl Patch 100 Mcg/Hour Patch.Td72) 100 mcg TRANSDERML Q72H [facility]; Protocol Last Admin: 07/03/23 08:12 Dose: 100 mcg Ferrous Sulfate (Ferrous Sulfate 324 Mg Tablet.) 324 mg PO DAILY [facility] Stop: 06/29/24 08:59 Last Admin: 07/03/23 08:13 Dose: 324 mg Gabapentin (Gabapentin 100 Mg Capsule) 100 mg PO TID [facility] Stop: 06/29/24 08:59 Last Admin: 07/03/23 08:13 Dose: 100 mg Guaifenesin/Dextromethorphan (Guaif/Dextromethorphan Syrup 10 Ml Udc) 10 ml PO Q8H PRN PRN Reason: Cough Stop: 06/28/24 21:34 Heparin Sodium (Porcine) (Heparin 5,000 Unit/Ml Vial) 5,000 unit SUBCUT Q12HR [facility] Stop: 06/29/24 08:59 Last Admin: 07/03/23 08:14 Dose: 5,000 unit Levothyroxine Sodium (Levothyroxine 100 Mcg Tablet) 100 mcg PO DAILY@0630 [facility] Stop: 06/29/24 06:29 Last Admin: 07/03/23 06:23 Dose: 100 mcg Linaclotide (Linaclotide 290 Mcg Capsule) 290 mcg PO Q48HR [facility] Stop: 06/29/24 08:59 Last Admin: 07/02/23 08:59 Dose: 290 mcg Liothyronine Sodium (Liothyronine 25 Mcg Tablet) 25 mcg PO DAILY@0630 [facility] Stop: 06/29/24 10:59 Last Admin: 07/03/23 06:23 Dose: 25 mcg Loratadine (Loratadine 10 Mg Tablet) 10 mg PO DAILY PRN PRN Reason: Allergy Symptoms Stop: 06/29/24 06:54 Melatonin (Melatonin 5 Mg Tablet) 5 mg PO QHS PRN PRN Reason: Insomnia Stop: 06/28/24 21:34 Metoprolol Tartrate (Metoprolol Tartrate 25 Mg Tablet) 25 mg PO BID [facility] Stop: 06/29/24 20:59 Last Admin: 07/03/23 08:14 Dose: 25 mg Ondansetron HCl (Ondansetron 4 Mg/2 Ml Vial) 4 mg IV-PUSH Q8H PRN PRN Reason: Nausea And Vomiting Stop: 06/28/24 21:34 Oxycodone/Acetaminophen (Oxycodone/Acetaminophen 5-325 Mg Tablet) 2 tab PO Q6H PRN PRN Reason: Pain Last Admin: 07/03/23 11:25 Dose: 2 tab Pantoprazole Sodium (Pantoprazole 40 Mg Tablet.Dr) 40 mg PO BID [facility] Stop: 06/29/24 08:59 Last Admin: 07/03/23 08:13 Dose: 40 mg Primidone (Primidone 50 Mg Tablet) 100 mg PO HS [facility] Stop: 06/29/24 21:59 Last Admin: 07/02/23 21:00 Dose: 100 mg Sevelamer Carbonate (Sevelamer Carbonate 800 Mg Tablet) 800 mg PO TID.WITH.MEALS [facility] Stop: 06/29/24 11:59 Last Admin: [...] signed by Raeann Kirkpatrick MD> 07/03/23 1218 [facility] Work Phone: 1(260) 251-900301-07-2024 Progress note Author Jim Randhawa [facility] July 02, 2023 11:26amNote Date/TimeJan2023 11:26amL[place] [address] Hospitalist Progress Note Signed Patient: Mabel Moser MR#: [id number] : 1960 Acct:[id number] Age/Sex: 63 / F Adm Date: 4 Loc: Room: [address] [place] [address] Type: ADM IN Attending Dr: Jmi Randhawa [...] <Electronically signed by Jim Randhawa DO> 07/02/23 [facility] Work Phone: 1(648) 873-196601-07-2024 Progress note Author [facility] July 02, 2023 10:42amNote Date/TimeJan2023 10:42amL[place] [address] Nephrology Progress Note Signed Patient: Mabel Moser MR#: [id number] : 1960 Acct:[id number] Age/Sex: 63 / F Adm Date: 4 Loc: Room: [address] [place] [address] Type: ADM IN Attending Dr: Jim Randhawa [...] 50 Mg Tablet) 150 mg PO QHS [facility] Stop: 06/29/24 21:59 Last Admin: 07/01/23 21:21 Dose: 150 mg Aripiprazole (Aripiprazole 2 Mg Tablet) 2 mg PO DAILY [facility] Stop: 06/29/24 08:59 Last Admin: 07/02/23 08:55 Dose: 2 mg Bisacodyl (Bisacodyl 5 Mg Tablet.) 10 mg PO DAILY PRN PRN Reason: Constipation Stop: 06/28/24 21:34 Bumetanide (Bumetanide 1 Mg/4 Ml Vial) 1 mg IV-PUSH BID@0800,1600 [facility] Stop: 06/29/24 07:59 Last Admin: 07/02/23 08:55 Dose: 1 mg Calcium Acetate (Calcium Acetate 667 Mg Capsule) 667 mg PO BID.WITH.MEALS [facility] Stop: 06/29/24 07:59 Last Admin: 07/02/23 08:55 Dose: 667 mg Duloxetine HCl (Duloxetine 60 Mg Capsule.) 120 mg PO DAILY [facility] Stop: 06/29/24 08:59 Last Admin: 07/02/23 08:59 Dose: 120 mg Fentanyl (Fentanyl Patch 100 Mcg/Hour Patch.Td72) 100 mcg TRANSDERML Q72H [facility]; Protocol Last Admin: 06/30/23 09:31 Dose: 100 mcg Ferrous Sulfate (Ferrous Sulfate 324 Mg Tablet.) 324 mg PO DAILY [facility] Stop: 06/29/24 08:59 Last Admin: 07/02/23 08:55 Dose: 324 mg Gabapentin (Gabapentin 100 Mg Capsule) 100 mg PO TID [facility] Stop: 06/29/24 08:59 Last Admin: 07/02/23 08:55 Dose: 100 mg Guaifenesin/Dextromethorphan (Guaif/Dextromethorphan Syrup 10 Ml Udc) 10 ml PO Q8H PRN PRN Reason: Cough Stop: 06/28/24 21:34 Heparin Sodium (Porcine) (Heparin 5,000 Unit/Ml Vial) 5,000 unit SUBCUT Q12HR [facility] Stop: 06/29/24 08:59 Last Admin: 07/02/23 08:55 Dose: 5,000 unit Levothyroxine Sodium (Levothyroxine 100 Mcg Tablet) 100 mcg PO DAILY@0630 [facility] Stop: 06/29/24 06:29 Last Admin: 07/02/23 05:48 Dose: 100 mcg Linaclotide (Linaclotide 290 Mcg Capsule) 290 mcg PO Q48HR [facility] Stop: 06/29/24 08:59 Last Admin: 07/02/23 08:59 Dose: 290 mcg Liothyronine Sodium (Liothyronine 25 Mcg Tablet) 25 mcg PO DAILY@0630 [facility] Stop: 06/29/24 10:59 Last Admin: 07/02/23 05:48 Dose: 25 mcg Loratadine (Loratadine 10 Mg Tablet) 10 mg PO DAILY PRN PRN Reason: Allergy Symptoms Stop: 06/29/24 06:54 Melatonin (Melatonin 5 Mg Tablet) 5 mg PO QHS PRN PRN Reason: Insomnia Stop: 06/28/24 21:34 Metoprolol Tartrate (Metoprolol Tartrate 25 Mg Tablet) 25 mg PO BID [facility] Stop: 06/29/24 20:59 Last Admin: [...] signed by MD Los Grissom> 07/02/23 1042 [facility] Work Phone: 1(175) 666-701101-06-2024 Progress note Author Jim Randhawa [facility] July 01, 2023 1:52pmNote Date/TimeJan2023 1:37[place] [address] Hospitalist Progress Note Signed Patient: Mabel Moser MR#: [id number] : 1960 Acct:[id number] Age/Sex: 63 / F Adm Date: 4 Loc: Room: [address] [place] [address] Type: ADM IN Attending Dr: Jim Randhawa [...] signed by Jim Randhawa DO> 07/01/23 1352 [facility] Work Phone: 1(799) 835-949701-06-2024 Progress note Author Los [facility] July 01, 2023 10:16amNote Date/TimeJan2023 10:16[place] [address] Nephrology Progress Note Signed Patient: Mabel Moser MR#: [id number] : 1960 Acct:[id number] Age/Sex: 63 / F Adm Date: 4 Loc: Room: [address] [place] [address] Type: ADM IN Attending Dr: Jim Randhawa [...] 50 Mg Tablet) 150 mg PO QHS [facility] Stop: 06/29/24 21:59 Last Admin: 06/30/23 21:17 Dose: 150 mg Aripiprazole (Aripiprazole 2 Mg Tablet) 2 mg PO DAILY [facility] Stop: 06/29/24 08:59 Last Admin: 07/01/23 08:21 Dose: 2 mg Bisacodyl (Bisacodyl 5 Mg Tablet.) 10 mg PO DAILY PRN PRN Reason: Constipation Stop: 06/28/24 21:34 Bumetanide (Bumetanide 1 Mg/4 Ml Vial) 1 mg IV-PUSH BID@0800,1600 [facility] Stop: 06/29/24 07:59 Last Admin: 07/01/23 08:21 Dose: 1 mg Calcium Acetate (Calcium Acetate 667 Mg Capsule) 667 mg PO BID.WITH.MEALS [facility] Stop: 06/29/24 07:59 Last Admin: 07/01/23 08:20 Dose: 667 mg Duloxetine HCl (Duloxetine 60 Mg Capsule.) 120 mg PO DAILY [facility] Stop: 06/29/24 08:59 Last Admin: 07/01/23 08:20 Dose: 120 mg Fentanyl (Fentanyl Patch 100 Mcg/Hour Patch.Td72) 100 mcg TRANSDERML Q72H [facility]; Protocol Last Admin: 06/30/23 09:31 Dose: 100 mcg Ferrous Sulfate (Ferrous Sulfate 324 Mg Tablet.) 324 mg PO DAILY [facility] Stop: 06/29/24 08:59 Last Admin: 07/01/23 08:20 Dose: 324 mg Gabapentin (Gabapentin 100 Mg Capsule) 100 mg PO TID [facility] Stop: 06/29/24 08:59 Last Admin: 07/01/23 08:20 Dose: 100 mg Guaifenesin/Dextromethorphan (Guaif/Dextromethorphan Syrup 10 Ml Udc) 10 ml PO Q8H PRN PRN Reason: Cough Stop: 06/28/24 21:34 Heparin Sodium (Porcine) (Heparin 5,000 Unit/Ml Vial) 5,000 unit SUBCUT Q12HR [facility] Stop: 06/29/24 08:59 Last Admin: 07/01/23 08:21 Dose: 5,000 unit Levothyroxine Sodium (Levothyroxine 100 Mcg Tablet) 100 mcg PO DAILY@30 [facility] Stop: 06/29/24 06:29 Last Admin: 07/01/23 05:46 Dose: 100 mcg Linaclotide (Linaclotide 290 Mcg Capsule) 290 mcg PO Q48HR [facility] Stop: 06/29/24 08:59 Last Admin: 06/30/23 09:33 Dose: 290 mcg Liothyronine Sodium (Liothyronine 25 Mcg Tablet) 25 mcg PO DAILY@30 [facility] Stop: 06/29/24 10:59 Last Admin: 07/01/23 05:46 Dose: 25 mcg Loratadine (Loratadine 10 Mg Tablet) 10 mg PO DAILY PRN PRN Reason: Allergy Symptoms Stop: 06/29/24 06:54 Melatonin (Melatonin 5 Mg Tablet) 5 mg PO QHS PRN PRN Reason: Insomnia Stop: 06/28/24 21:34 Metoprolol Tartrate (Metoprolol Tartrate 25 Mg Tablet) 25 mg PO BID [facility] Stop: 06/29/24 20:59 Last Admin: 07/01/23 08:20 Dose: 25 mg Ondansetron HCl (Ondansetron 4 Mg/2 Ml Vial) 4 mg IV-PUSH Q8H PRN PRN Reason: Nausea And Vomiting Stop: 06/28/24 21:34 Oxycodone/Acetaminophen (Oxycodone/Acetaminophen 5-325 Mg Tablet) 2 tab PO Q6H PRN PRN Reason: Pain Last Admin: 07/01/23 03:35 Dose: 2 tab Pantoprazole Sodium (Pantoprazole 40 Mg Tablet.Dr) 40 mg PO BID [facility] Stop: 06/29/24 08:59 Last Admin: 07/01/23 08:21 Dose: 40 mg Primidone (Primidone 50 Mg Tablet) 100 mg PO HS [facility] Stop: 06/29/24 21:59 Last Admin: 06/30/23 21:17 Dose: 100 mg Sevelamer Carbonate (Sevelamer Carbonate 800 Mg Tablet) 800 mg PO TID.WITH.MEALS [facility] Stop: 06/29/24 11:59 Last Admin: [...] signed by MD Los Grissom> 07/01/23 1016 [facility] Work Phone: 1(891) 623-388101-05-2024 Progress note Author Jim Randhawa [facility] June 30, 2023 1:13pmNote Date/TimeJan2023 1:13pmL[place] [address] Hospitalist Progress Note Signed Patient: Mabel Moser MR#: [id number] : 1960 Acct:[id number] Age/Sex: 63 / F Adm Date: 4 Loc: Room: [address] [place] [address] Type: ADM IN Attending Dr: Jim Randhawa [...] 25 Mg Tablet PO 06/29/24 20:59 BID [facility] Ondansetron HCl 4 mg 06/29/23 21:35 Ondansetron [...] signed by Jim Randhawa DO> 06/30/23 1313 [facility] Work Phone: 1(147) 355-723801-05-2024 Consult note [facility] June 30, 2023 10:45amNote Date/TimeJan2023 10:26[place] [id number] Nephrology Consult Note Signed Patient: Mabel Moser MR#: [id number] : 1960 Acct:[id number] Age/Sex: 63 / F Adm Date: 4 Loc: Room: [address] [place] [address] Type: ADM IN Attending Dr: Jim Randhawa [...] and no additional complaints, except as documented [facility] Medical History CAD (coronary artery disease) Bypro filter in place Hypertension Surgical History History [...] 2 Mg Tablet) 2 mg PO DAILY [facility] Stop: 06/29/24 08:59 Last Admin: 06/30/23 09:30 Dose: 2 mg Bisacodyl (Bisacodyl 5 Mg Tablet.) 10 mg PO DAILY PRN PRN Reason: Constipation Stop: 06/28/24 21:34 Bumetanide (Bumetanide 1 Mg/4 Ml Vial) 1 mg IV-PUSH BID@0800,1600 [facility] Stop: 06/29/24 07:59 Last Admin: 06/30/23 09:31 Dose: 1 mg Calcium Acetate (Calcium Acetate 667 Mg Capsule) 667 mg PO BID.WITH.MEALS [facility] Stop: 06/29/24 07:59 Last Admin: 06/30/23 09:30 Dose: 667 mg Duloxetine HCl (Duloxetine 60 Mg Capsule.) 120 mg PO DAILY [facility] Stop: 06/29/24 08:59 Last Admin: 06/30/23 09:30 Dose: 120 mg Escitalopram Oxalate (Escitalopram 20 Mg Tablet) 20 mg PO DAILY [facility] Stop: 06/29/24 08:59 Last Admin: 06/30/23 09:31 Dose: 20 mg Fentanyl (Fentanyl Patch 100 Mcg/Hour Patch.Td72) 100 mcg TRANSDERML Q72H [facility]; Protocol Last Admin: 06/30/23 09:31 Dose: 100 mcg Ferrous Sulfate (Ferrous Sulfate 324 Mg Tablet.) 324 mg PO DAILY [facility] Stop: 06/29/24 08:59 Last Admin: 06/30/23 09:31 Dose: 324 mg Gabapentin (Gabapentin 100 Mg Capsule) 100 mg PO TID [facility] Stop: 06/29/24 08:59 Last Admin: 06/30/23 09:31 Dose: 100 mg Guaifenesin/Dextromethorphan (Guaif/Dextromethorphan Syrup 10 Ml Udc) 10 ml PO Q8H PRN PRN Reason: Cough Stop: 06/28/24 21:34 Heparin Sodium (Porcine) (Heparin 5,000 Unit/Ml Vial) 5,000 unit SUBCUT Q12HR [facility] Stop: 06/29/24 08:59 Last Admin: 06/30/23 09:32 Dose: 5,000 unit Levothyroxine Sodium (Levothyroxine 100 Mcg Tablet) 100 mcg PO DAILY@0630 [facility] Stop: 06/29/24 06:29 Last Admin: 06/30/23 05:55 Dose: 100 mcg Linaclotide (Linaclotide 290 Mcg Capsule) 290 mcg PO Q48HR [facility] Stop: 06/29/24 08:59 Last Admin: [...] 40 Mg Tablet.) 40 mg PO BID [facility] Stop: 06/29/24 08:59 Last Admin: 06/30/23 09:31 Dose: 40 mg Primidone (Primidone 50 Mg Tablet) 100 mg PO HS [facility] Stop: 06/29/24 21:59 Sevelamer Carbonate (Sevelamer Carbonate 800 Mg Tablet) 800 mg PO TID [facility] Stop: 06/29/24 08:59 Tizanidine HCl [...] <Electronically signed by MD Los Grissom> 06/30/23 1046 [facility] Work Phone: 1(357) 791-853401-04-2024 History and physical note Author Beatriz Oh [facility] June 29, 2023 9:51pmNote Date/TimeJan2023 9:47pmL[place] [address] Hospitalist H&P Signed Patient: Mabel Moser MR#: [id number] : 1960 Acct:[id number] Age/Sex: 63 / F Adm Date: 4 Loc: Room: [address] [place] [address] Type: ADM IN Attending Dr: Papito Garces [...] She denies having dysuria, hematuria, or frequency. [facility] Medical History CAD (coronary artery disease) Bypro filter in place Hypertension Surgical History History [...] mg PO BID 08/31/18 [History Confirmed 10/28/22] hozrsrff-bjbtbvg-rfti-iron fum 18 mg-folic 600 mcg-vit K 80 [...] TID PRN Edema 10/28/22 [History Confirmed 10/28/22] xfutldhjxz-qfgnahymbfwbj-xlcyjaed 50 mg-325 mg-40 mg capsule 1 cap [...] 3 Documented By: Beatriz Oh MD 06/29/23 9903 Signed By: <Electronically signed by Beatriz Oh MD> 06/29/23 2156 [facility] Work Phone: 1(289) 355-564910-10-2023 Evaluation note* Encounter Date Diagnosis Assessment Notes [...] - G43.519)Advised the patient to follow with [facility] neurology clinic Mar,hronic kidney disease, stage 3b [...] Mar,Hyperphosphatemia (ICD-10 - E83.39)Continue PhosLo with meals [facility] Other 04-04-2023 Evaluation note* Encounter Date Diagnosis [...] - G43.519)Advised the patient to follow with [facility] neurology clinic [facility] [place] Other 03-28-2023 [facility]The [facility] CenterGjaixiln92-08-8258 Evaluation note* Encounter Date Diagnosis Assessment Notes Treatment Notes Treatment Clinical Notes Jul, Contusion of right wrist, initia l encounter (ICD-10 - S60.211A) Patient placed in cock up wrist splint. Activities 2-5 lbs ADLs [facility] Other 12-13-2022 NoteThe [facility] CenterOflvbwhl68-94-5318 NoteThe [facility] CenterDzujeank34-41-3363 NoteThe [facility] CenterTfcavqps54-52-5256 Evaluation note * Encounter Date Diagnosis Assessment [...] blood pressure. Advised the patient to follow-upwith [facility] neurology clinic I will try to reach to Dr. Santana's office about fludrocortisone I would continue same blood pressure medications. Advised the patient to follow a low-salt diet andto monitor her blood pressure at home Mar,Migraine aura, persistent, intractable (ICD-10 - G43.519)Advised the patient to follow with [facility] neurology clinic [facility] Other 08-04-2022 NoteThe [facility] CenterBnmkufzh16-39-3297 NoteThe [facility] CenterWqvqioje43-89-4211 Evaluation note* Encounter Date Diagnosis Assessment Notes [...] off all diuretics metolazone, spironolactone and bumetanide. [facility] Other Discharge summary Author Jim Randhawa [facility] July 03, 2023 3:03pmNote Date/TimeJan2023 2:55pmJohn [place] [id number] Discharge Summary Signed Patient: Mabel Moser MR#: [id number] : 1960 Acct:[id number] Age/Sex: 63 / F Adm Date: 4 Loc: Room: [address] [place] [address]: Jim Randhawa DO Copies to: [...] signed by Jim Randhawa DO> 07/03/23 1503 [facility] Work Phone: Evaluation + Plan note No data available for this section [facility] Surgery Sophie Evaluation noteNo assessment information available [facility] Work Phone: Evalulaedw noteNo InformationNort [employer] Other Evalujdxsp note* Diagnosis Onset Date Resolution Status Acute heart failure acuteAKI (acute kidney injury)acuteAnemiachronicCKD (chronic kidney disease) stage 3, GFR 30-59 ml/minchronicHypertensionchronic [facility] Work Phone: Evaluation note* Diagnosis Onset Date Resolution Status CHF (congestive heart failure) acuteChronic kidney disease, stage 3bacuteFluid overloadacuteHyperkalemiaacute Secondary hyperparathyroidismacuteVitamin D deficiencyacuteAnemiachronic Hyponatremiachronic [facility] Work Phone: Evaluation note* Diagnosis Onset Date Resolution Status Admit Date CHF (congestive heart failure) acuteApril 2024 2:44pmChronic kidney disease, stage 3bacuteApril 2024 2:44pmFluid overloadacuteApril 2024 2:44pmHyperkalemiaacuteApril 2024 2:44pmSecondary hyperparathyroidismacuteApril 2024 2:44pmVitamin D deficiencyacuteApril 2024 2:44pmAnemiachronicApril 2024 2:44pm HyponatremiachronicApril 2024 2:44pm [facility] Work Phone: Evaluation note* Diagnosis Onset Date Resolution Status Admit Date CHF (congestive heart failure) acuteJuly 2024 11:05amChronic kidney disease, stage 3bacuteJuly 2024 11:05amFluid overloadacuteJuly 2024 11:05amHyperkalemiaacuteJuly 2024 11:05amSecondary hyperparathyroidismacuteJuly 2024 11:05amVitamin D deficiencyacuteJuly 2024 11:05amAnemiachronicJuly 2024 11:05am HyponatremiachronicJuly 2024 11:05am [facility] Work Phone: History general Narrative - Reported* [...] History appendectomySurgical Historygastric bypassSurgical Historyknee surgerySurgical Historyback cvqogcp89-1034Wglrvsxw HistoryRight total knee replacement-2017 Surgical HistoryHEART [id number] HistorySee aboveHospitalization HistoryFLUID TBSTDZFUE39-9423Xksvbbehbpnfdwp CmihnnbCMKXTUOZMNV00-9336 Hospitalization HistoryLOW SODIUM3/19Hospitalization HistoryABNORMAL LABS, BOWEL IMBMMSPAMFI73/2021Hospitalization CpramlgDZVNW16/2019Hospitalization History COVID04/2021 [facility] Other History general Narrative - Reported* Type [...] History appendectomySurgical Historygastric bypassSurgical Historyknee surgerySurgical Historyback -8841Cbpauxdv HistoryRight total knee replacement2-2018 Surgical HistoryHEART [id number] HistoryROTATOR CUFF [id number] Hospitalization HistorySee aboveHospitalization HistoryFLUID [id number] Hospitalization IyfhtuwSJFKDITVOQF82-4846Qqekvvygqqenyis HistoryLOW SODIUM3/19 Hospitalization HistoryABNORMAL LABS, BOWEL ALKSYIAUDIP57/2021Hospitalization EszezxcNIDWX63/2019Hospitalization JwwoxugFNKVN49/2021 [facility] Other History general Narrative - Reported* Type [...] HistoryappendectomySurgical Historygastric bypass Surgical Historyknee surgerySurgical Historyback -3439Uahbocvh History Right total knee replacement-2017Surgical HistoryHEART RVSH38-7651Qvakdkil HistoryROTATOR CUFF EIHQKN9337Jwyuhwbznhwrotc HistorySee aboveHospitalization HistoryFLUID PUISWOSDO57-6833Tejglktdtqmzxzu TahktwwZZZBITVBCAD82-7553 Hospitalization HistoryLOW SODIUM09/11Hospitalization HistoryABNORMAL LABS, BOWEL ANUWPPHTTCU78/2021Hospitalization FdvpukeAXTAT61/2020Hospitalization History COVID04/2021Hospitalization HistoryELEVATED POTASSIUM LEVEL09/19/2022 [facility] Other Hospital Discharge instructions Additional Instructions Home health to manage: - PT/OT to eval and treat - Monitor VS routine - Dx. HTN - CHF assessments/education - Urinary assessments - Dx. CKD on LEEANN - Fall precautions - [facility] Work Phone: Hospital Discharge instructions No data available for this section [facility] Progress note No data available for this section [facility] Reason for referral (narrative)No reason for referral information availableSelect [facility] [place] Work Phone: Summary Purpose Family History No [...] section and content) DATE CREATED AUTHOR 01/14/2019 [facility] DATE CREATED AUTHOR AUTHOR'S ORGANIZ ATION 07/24/2021 [facility] DATE CREATED AUTHOR AUTHOR'S ORGANIZ ATION 01/17/2022 [facility] DATE CREATED AUTHOR AUTHOR'S ORGANIZ ATION 12/05/2022 [facility] DATE CREATED AUTHOR AUTHOR'S ORGANIZ ATION 08/04/2023 [facility] DATE CREATED AUTHOR AUTHOR'S ORGANIZ ATION 10/19/2023 [facility] DATE CREATED AUTHOR AUTHOR'S ORGANIZ ATION 03/07/2024 [facility] DATE CREATED AUTHOR AUTHOR'S ORGANIZ ATION 03/27/2024 [facility] DATE CREATED AUTHOR AUTHOR'S ORGANIZ ATION 06/05/2024 [facility] DATE CREATED AUTHOR AUTHOR'S ORGANIZ ATION 02/16/2025 [facility] DATE CREATED AUTHOR AUTHOR'S ORGANIZ ATION 04/29/2025 [facility] REASON FOR VISIT (unrecogniz ed section [...] CLINICAL RECORDS. [facility] [employer] provides no warranty or guarantee of the accuracy or completeness of information in this document.
[2025-05-11] MEDS: 0.9 % SODIUM CHLORIDE 1,000 ML 200 ML IV (06:24)
--- NOTE | 2025-05-11 06:26 | US_ITS ---
The [address] [address] Patient Name: JOSE CLEMENTS MRN: [id number] date: 1960 Sex: F Assigned Patient Location: [place] Current Patient Location: [place] Accession/Order Number: [id number] Exam Date: 05/11/2025 12:35 Report Date: 05/12/2025 21:35 At the request of: DON BOLAÑOS MD Procedure: US renal BI US renal BI 05/12/2025 1:10 PM SIGNS AND SYMPTOMS: ^LEEANN r/o obstructove uropathy, hydronephrosis COMPARISON: None. FINDINGS: Right kidney measures 8.9 x 4.8 x 4.1 cm . No hydronephrosis or mass. The renal cortex measures 1 cm in thickness. Left kidney measures 7.9 x 3.9 x 4.2 cm . No hydronephrosis or mass. There is an anechoic cyst measuring 9 mm. The left renal cortex measures 9 mm in thickness. The urinary bladder is morphologically normal. No free fluid is seen in the pelvis. A Farrar catheter is present within the bladder. US/US renal BI IMPRESSION: No hydronephrosis or mass. There is a 9 mm anechoic cyst in the left renal cortex. Impression dictated by: Fidel Estrada M.D. 05/12/2025 9:35 PM Dictation Location: [place] [address] Electronically authenticated by: [id number] Y Date: 05/12/2025 21:35
[2025-05-11 07:52] LABS: Alanine Aminotransferase 19 U/L (14-59); Albumin Globulin Ratio 1.0; Albumin Level 3.1 g/dL (3.4-5.0); Alkaline Phosphatase 172 U/L (46-116); Anion Gap 19.1; Aspartate Amino Transferase 21 U/L (15-37); Blood Urea Nitrogen 63.0 mg/dL (7.0-18.0); Calcium 8.0 mg/dL (8.5-10.1); Carbon Dioxide 16.3 mmol/L (21.0-32.0); Chloride 110 mmol/L (98-107); Estimated GFR (African America 15 (>=60 mL/min/1.73m^2); Estimated GFR (Non-African Ame 12 (>=60 mL/min/1.73m^2); Globulin 3.2 g/dL; Glucose 77 mg/dL (74-106); Potassium 5.4 mmol/L (3.5-5.1); Sodium 140 mmol/L (136-145); Total Protein 6.3 g/dL (6.4-8.2)
[2025-05-11] MEDS: SODIUM POLYSTYRENE SULFON 15 GM/60 ML ORAL.SUSP KAYEXALATE 30 GM PO (07:53)
[2025-05-11 07:57] LABS: Thyroid Stimulating Hormone 0.055 uIU/mL (0.358-3.740)
[2025-05-11] MEDS: LEVOTHYROXINE SODIUM 100 MCG TABLET PO (09:40)
[2025-05-11] MEDS: CALCIUM ACETATE 667 MG CAPSULE PO (09:40)
[2025-05-11] MEDS: ACETAMINOPHEN 325 MG TABLET 650 MG PO (09:40)
[2025-05-11] MEDS: LIOTHYRONINE SODIUM 25 MCG TABLET PO (11:39)
[2025-05-11] MEDS: DILTIAZEM HCL 120 MG CAP.ER.24H PO (11:39)
[2025-05-11] MEDS: ESCITALOPRAM 10 MG TABLET 20 MG PO (11:39)
--- NOTE | 2025-05-11 13:03 | CT_ITS ---
The [address] [address] Patient Name: JOSE CLEMENTS MRN: [id number] date: 1960 Sex: F Assigned Patient Location: [place] Current Patient Location: [place] Accession/Order Number: [id number] Exam Date: 05/11/2025 13:35 Report Date: 05/11/2025 13:52 At the request of: KADIE MARTINEZ Procedure: CT cervical spine wo con CT Cervical Spine withoutcontrast TECHNIQUE: Axial imaging with 2-D and 3-D reconstruction. The CT exam was performed using one or more the following dose reduction techniques: Automated exposure control, adjustment of the MA and/or Kv according to patient size, or use of the iterative reconstruction technique. COMPARISON: Plain film imaging 03/08/2024 HISTORY: Fell. Neck pain. Weakness. POST SURGERY CHANGES: C1-C2 fusion hardware. No hardware complication. BONY ALIGNMENT: Mild lateral curvature. Unchanged. BONY SPINAL CANAL: Patent central bony canal FRACTURE: None BONY LESIONS: None SOFT TISSUES: Unremarkable DEGENERATIVE CHANGES: Similar moderate multilevel spondylosis and facet degeneration. LUNG APICES: Unremarkable ADDITIONAL FINDINGS: CT/CT cervical spine wo con IMPRESSION: Similar degenerative and post operative changes. No acute displaced fracture. Impression dictated by: Baljinder Ball M.D. 05/11/2025 1:52 PM Dictation Location: [employer] unlimitedQUIN[facility] VALLEY MEDICAL CENTERDolor Technologies Electronically authenticated by: [id number] Y Date: 05/11/2025 13:52
--- NOTE | 2025-05-11 13:03 | CT_ITS ---
The [address] [address] Patient Name: JOSE CLEMENTS MRN: [id number] date: 1960 Sex: F Assigned Patient Location: [place] Current Patient Location: [place] Accession/Order Number: [id number] Exam Date: 05/11/2025 13:35 Report Date: 05/11/2025 14:35 At the request of: KADIE MARTINEZ Procedure: CT lumbar spine wo con CT LUMBAR SPINE WITHOUT CONTRAST TECHNIQUE: Axial acquisition of the lumbar spine obtained with the sagittal and coronal reconstructed imaging.The CT exam was performed using one or more the following dose reduction techniques: Automated exposure control, adjustment of the MA and/or Kv according to patient size, or use of the iterative reconstruction technique. HISTORY: Fell. Leg weakness. Lumbar surgery COMPARISON: MRI lumbar spine 03/18/2025 FINDINGS: The last fully segmented vertebral pair is operationally defined as L5/S1. POST SURGERY CHANGES: L3 L5 fusion. Posterior lumbar decompression. IVC filter in place. BONY ALIGNMENT: Adequate bony alignment identified. SPINAL CANAL:Patent bony central canal LUMBAR FRACTURE: None BONY LESIONS: None KIDNEYS: No hydronephrosis is identified. AORTA: No aortic aneurysm is seen. Lower thoracic level: Unremarkable L1-2:Mild spondylosis. Mild bony central canal narrowing and moderate bilateral neural foraminal narrowing. Facet degeneration. L2-3: Unremarkable L3-4:Postsurgical change. No significant bony central canal narrowing. L4-5:Postsurgical changes. No significant stenosis. L5-S1:Mild L5-S1 spondylosis. Assessment of disc herniation limited with CT examination. No obvious disc herniation seen with CT exam. CT/CT lumbar spine wo con IMPRESSION:No acute displaced fracture. Similar degenerative and postsurgical changes. Impression dictated by: Baljinder Ball M.D. 05/11/2025 2:35 PM Dictation Location: [employer] Electronically authenticated by: [id number] Y Date: 05/11/2025 14:35
[2025-05-11] MEDS: SODIUM BICARBONATE IV ×2 (14:18→23:07)
[2025-05-11] MEDS: WATER IV ×2 (14:18→23:07)
[2025-05-11] MEDS: DEXTROSE 5% IV ×2 (14:18→23:07)
[2025-05-11 14:25] LABS: Anion Gap 18.0; Blood Urea Nitrogen 58.0 mg/dL (7.0-18.0); Calcium 8.3 mg/dL (8.5-10.1); Carbon Dioxide 18.4 mmol/L (21.0-32.0); Chloride 111 mmol/L (98-107); Estimated GFR (African America 15 (>=60 mL/min/1.73m^2); Estimated GFR (Non-African Ame 12 (>=60 mL/min/1.73m^2); Glucose 94 mg/dL (74-106); Potassium 5.4 mmol/L (3.5-5.1); Sodium 142 mmol/L (136-145)
--- NOTE | 2025-05-11 15:07 | PM.HP ---
HPI H&P: HPI History of Present Illness Chief complaint: fall Opioid HPI Opioid Management Most Recent Pain and Opioid Data: Last Pain Scale 4 Today, 11:00 Last Pain Assessment Today, 14:00 Last MAR Pain Assessment Today, 11:00 Last ORT Total Score 1 Today, 05:14 Last ORT Risk Category Low Risk Today, 05:14 [facility] Medical History Hyperglycemia ?R73.9 - Hyperglycemia, unspecified (ICD-10) Recurrent UTI ?N39.0 - Urinary tract infection, site not specified (ICD-10) Atelectasis of both lungs ?J98.11 - Atelectasis (ICD-10) C2 cervical fracture ?S12.100A - Unspecified displaced fracture of second cervical vertebra, initial encounter for closed fracture (ICD-10) Shoulder pain, left ?M25.512 - Pain in left shoulder (ICD-10) Pulmonary embolism ?I26.99 - Other pulmonary embolism without acute cor pulmonale (ICD-10) DVT (deep venous thrombosis) ?I82.409 - Acute embolism and thrombosis of unspecified deep veins of unspecified lower extremity (ICD-10) Osteoporosis ?M81.0 - Age-related osteoporosis without current pathological fracture (ICD-10) Seizures ?R56.9 - Unspecified convulsions (ICD-10) IBS (irritable bowel syndrome) ?K58.9 - Irritable bowel syndrome without diarrhea (ICD-10) D-dimer, elevated ?R79.89 - Other specified abnormal findings of blood chemistry (ICD-10) Chronic kidney insufficiency ?N18.9 - Chronic kidney disease, unspecified (ICD-10) Fluid overload ?E87.70 - Fluid overload, unspecified (ICD-10) Lymphedema ?I89.0 - Lymphedema, not elsewhere classified (ICD-10) Volume overload ?E87.70 - Fluid overload, unspecified (ICD-10) Anemia of chronic disease ?D63.8 - Anemia in other chronic diseases classified elsewhere (ICD-10) Chronic kidney disease ?N18.9 - Chronic kidney disease, unspecified (ICD-10) Acute kidney injury ?N17.9 - Acute kidney failure, unspecified (ICD-10) Edema of lower leg due to peripheral venous insufficiency ?I87.2 - Venous insufficiency (chronic) (peripheral) (ICD-10) ?R60.0 - Localized edema (ICD-10) Depression ?F32.A - Depression, unspecified (ICD-10) Gastroenteritis ?K52.9 - Noninfective gastroenteritis and colitis, unspecified (ICD-10) Migraine without aura and without status migrainosus, not intractable ?G43.009 - Migraine without aura, not intractable, without status migrainosus (ICD-10) Chronic heart failure with preserved ejection fraction (HFpEF) ?I50.32 - Chronic diastolic (congestive) heart failure (ICD-10) Chest pain ?R07.9 - Chest pain, unspecified (ICD-10) Dyspnea ?R06.00 - Dyspnea, unspecified (ICD-10) Osteoarthritis ?M19.90 - Unspecified osteoarthritis, unspecified site (ICD-10) Anemia ?D64.9 - Anemia, unspecified (ICD-10) Anxiety ?F41.9 - Anxiety disorder, unspecified (ICD-10) Stroke ?I63.9 - Cerebral infarction, unspecified (ICD-10) Acid reflux ?K21.9 - Gastro-esophageal reflux disease without esophagitis (ICD-10) Hypothyroid ?E03.9 - Hypothyroidism, unspecified (ICD-10) COPD (chronic obstructive pulmonary disease) ?J44.9 - Chronic obstructive pulmonary disease, unspecified (ICD-10) Asthma ?J45.909 - Unspecified asthma, uncomplicated (ICD-10) CHF (congestive heart failure) ?I50.9 - Heart failure, unspecified (ICD-10) Irregular heart beat ?I49.9 - Cardiac arrhythmia, unspecified (ICD-10) HTN (hypertension) ?I10 - Essential (primary) hypertension (ICD-10) Heart attack ?I21.9 - Acute myocardial infarction, unspecified (ICD-10) Lumbar spondylosis ?M47.816 - Spondylosis without myelopathy or radiculopathy, lumbar region (ICD-10) Surgical History H/O cervical spinal arthrodesis ?Z98.1 - Arthrodesis status (ICD-10) Port-A-Cath in place ?Z95.828 - Presence of other vascular implants and grafts (ICD-10) History of lumbar fusion ?Z98.1 - Arthrodesis status (ICD-10) H/O hysterectomy with oophorectomy H/O gastric bypass ?Z98.84 - Bariatric surgery status (ICD-10) History of hernia repair ?Z98.890 - Other specified postprocedural states (ICD-10) ?Z87.19 - Personal history of other diseases of the digestive system (ICD-10) History of rotator cuff surgery ?Z98.890 - Other specified postprocedural states (ICD-10) History of right knee joint replacement ?Z96.651 - Presence of right artificial knee joint (ICD-10) History of appendectomy ?Z90.49 - Acquired absence of other specified parts of digestive tract (ICD-10) Hx of cholecystectomy ?Z90.49 - Acquired absence of other specified parts of digestive tract (ICD-10) Family History Father Family history of CHF (congestive heart failure) Family history of diabetes mellitus Family history of hypertension Family history of myocardial infarction Family history of stroke Mother Family history of CHF (congestive heart failure) Family history of COPD (chronic obstructive pulmonary disease) Family history of diabetes mellitus Family history of hypertension Family history of myocardial infarction Family history of stroke Social History Within the past year, how often did you have a drink containing alcohol: never Within the past year, how often did you have six or more drinks on one occasion: never Score interpretation: A score less than 3 is consistent with normal alcohol consumption. 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 Highest level of school completed/degree received: some college, no degree Are you now , , , , never or living with a partner: In a typical week, how many times do you talk on the telephone with family, friends, or neighbors: 3 or more times per week How often do you get together with friends or relatives: twice per week How often do you attend faith or mosque services: 4 or more times per year Do you belong to any clubs or organizations such as faith groups unions, fraternal or athletic groups, or school groups: no Total score: 3 Score interpretation: A score of greater than or equal to 2 indicates the lowest level of social isolation. Little interest or pleasure in doing things: not at all Feeling down, depressed, or hopeless: not at all Feel stressed/tense/nervous/anxious/difficulty sleeping: to some extent Life stressors: recent of family or friend Do you think of yourself as: straight/heterosexual Gender Identity: female Meds Home Medications and Allergies Home Medications ?Medication ?Instructions ?Recorded ?Confirmed ?Type alprazolam 0.5 mg tablet 0.5 mg PO BID PRN anxiety 12/08/22 05/11/25 History amitriptyline 150 mg tablet 300 mg PO BEDTIME 12/08/22 05/11/25 History calcium acetate(phosphat bind) 667 667 mg PO BIDWM 12/08/22 05/11/25 History mg capsule levothyroxine 100 mcg tablet 100 mcg PO DAILY 12/08/22 05/11/25 History linaclotide 290 mcg capsule 290 mcg PO .QOD 12/08/22 05/11/25 History (Linzess) oxycodone-acetaminophen 5 mg-325 1 tab PO Q6H PRN pain 12/08/22 05/11/25 History mg tablet primidone 50 mg tablet 150 mg PO BEDTIME 12/08/22 05/11/25 History tizanidine 4 mg tablet (Zanaflex) 4 mg PO Q6H PRN muscle spasticity 12/08/22 05/11/25 History azelastine 0.05 % eye drops 1 drp ophthalmic (eye) DAILY 09/29/23 05/11/25 History doxepin 10 mg capsule 20 mg PO BEDTIME 09/29/23 05/11/25 History escitalopram oxalate 20 mg tablet 20 mg PO DAILY 09/29/23 05/11/25 History fentanyl 100 mcg/hr transdermal 1 patch transdermal Q72H 10/12/23 05/11/25 History patch pramipexole 1 mg tablet 1 mg PO .QHS 10/23/23 05/11/25 History sacubitril 49 mg-valsartan 51 mg 1 tab PO BID 01/04/24 05/11/25 History tablet (Entresto) calcitriol 0.5 mcg capsule 0.5 mcg PO DAILY 10/07/24 05/11/25 History racikymgnu-ibkcjowlzreng-ssjlahgp 1 tab PO BID PRN migraine headache 10/15/24 05/11/25 History 50 mg-325 mg-40 mg tablet liothyronine 25 mcg tablet 25 mcg PO DAILY 10/15/24 05/11/25 History diltiazem HCl 120 mg 120 mg PO DAILY 05/11/25 05/11/25 History capsule,extended release 24 hr docusate sodium 100 mg capsule 100 mg PO .QHS 05/11/25 05/11/25 History (Colace) fexofenadine 180 mg tablet 180 mg PO DAILY 05/11/25 05/11/25 History (Tammie Allergy) magnesium 250 mg tablet 250 mg PO DAILY 05/11/25 05/11/25 History multivitamin 1 tab PO DAILY 05/11/25 05/11/25 History quetiapine 50 mg tablet 50 mg PO DAILY 05/11/25 05/11/25 History Allergies Allergy/AdvReac Type Severity Reaction Status Date / Time povidone-iodine (From Allergy Intermediate Rash Verified 05/11/25 00:32 Betadine) amoxicillin (From Augmentin) AdvReac Mild Vomiting Verified 05/11/25 00:32 clavulanic acid (From AdvReac Mild Vomiting Verified 02/10/25 12:00 Augmentin) Sulfa (Sulfonamide AdvReac Mild Vomiting Verified 05/11/25 00:32 Antibiotics) ciprofloxacin (From Cipro) AdvReac Unknown Vomiting Verified 05/11/25 00:32 Exam Constitutional Vital Signs, click to edit/add: Last Vital Signs Temp 97.8 F 05/11/25 12:00 Pulse 104 H 05/11/25 14:00 Resp 16 05/11/25 12:00 BP 176/107 H 05/11/25 14:56 Pulse Ox 95 05/11/25 12:00 O2 Del Method Room Air 05/11/25 12:00 Results Labs Labs: Short CBC 05/11/25 Range/Units 00:54 WBC 5.5 (4.0-11.0) 10^3/uL Hgb 9.6 L (12.0-16.0) g/dL Hct 31.2 L (36.0-48.0) % Plt Count 222 (150-450) 10^3/uL BMP 05/11/25 05/11/25 05/11/25 00:54 02:35 07:16 Sodium 140 141 140 Potassium 5.9 H 5.9 H 5.4 H Chloride 109 H 110 H 110 H Carbon Dioxide 17.9 L 18.3 L 16.3 L BUN 63.0 H 61.0 H 63.0 H Creatinine 3.80 H 3.77 H 3.73 H Glucose 87 81 77 Calcium 8.4 L 8.1 L 8.0 L 05/11/25 13:58 Sodium 142 Potassium 5.4 H Chloride 111 H Carbon Dioxide 18.4 L BUN 58.0 H Creatinine 3.71 H Glucose 94 Calcium 8.3 L Liver Function 05/11/25 Range/Units 07:16 Total Bilirubin 0.3 (0.2-1.0) mg/dL AST 21 (15-37) U/L ALT 19 (14-59) U/L Alkaline Phosphatase 172 H (46-116) U/L Albumin 3.1 L (3.4-5.0) g/dL Urinary Catheter Management Urinary Catheter Management Straight: Cath placed during this visit: yes Urethral indwelling: No Insertion date: 05/11/25 Insertion time: 08:05
--- NOTE | 2025-05-11 15:08 | PM.HP ---
HPI H&P: HPI History of Present Illness Chief complaint: fall Narrative: This is a 65-year-old woman who had 2 ER visits over the weekend. It seems like she mostly came in with vague complaints. She may have fallen at home, and one of the ER notes indicated that the patient to come the emergency room just because she wanted to get checked out. When the ER did lab work on her though potassium was found to be high at 5.9 and her BUN has risen from its baseline of 30 up to 63 and her creatinine is fallen from its baseline of 1.75 and has worsened to 3.80. The patient was given IV fluids. She was given oral Kayexalate to improve her potassium levels. She was admitted on additional IV fluids. When I go in the room to see her this morning the patient also has some vague and nonspecific complaints. It seems as one of her fall she struck her neck or her head on the right side. She was worried in the past because her spinal surgeon and told her to be very careful and if she ever fell and injured her neck she would be at risk for spinal decapitation. The patient does admit to constipation. She says that recently she was started on a couple new medicines and ever since then things have been much worse in terms of constipation. The newest medication appears to be diltiazem. There also has pramipexole started on 05/03. Also I see a prescription for torsemide 100 mg daily started on 03/25/[address] Raeann Wallace. Early this morning nursing staff had to straight catheterize patient for 1500 mL of urine. The patient says that normally she does not have a problem with voiding urine. Nursing staff here agree. She is well-known to the nursing staff on this floor. They said that normally she has never needed a Farrar and normally she can void quite well. She also is normally very ambulatory and will walk up and down the hallways. But today the patient complains of weakness of both of her legs. Later on in the day, after a Dulcolax suppository, the patient did have a large bowel movement, which is important in a patient who got Kayexalate. Her labs been checked now 4 times since midnight. Her potassium has been 5.9, then 5.9 again 1-1/2 hours later, then 5.4 at the start of the shift and remains at 5.4 this afternoon. Her BUN has been 63, then 61, then 63, and then 58. Her creatinine is been 3.8, 3.77, 3.73, and 3.71. Her bicarb has declined, despite these IV fluids and her bicarb has been 17.9, 18.3, then 16.3 and then 18.4. Quality: Safe Use of Opioids Is the patient undergoing opioid medication assisted treatment that includes methadone, buprenorphine, and/or naltrexone: No Opioid HPI Opioid Management Most Recent Pain and Opioid Data: Last Pain Scale 4 Today, 11:00 Last Pain Assessment Today, 14:00 Last MAR Pain Assessment Today, 11:00 Last ORT Total Score 1 Today, 05:14 Last ORT Risk Category Low Risk Today, 05:14 Review of Systems ROS Narrative A 10 point review of systems is attempted, but not able to be completed, as the patient is a suboptimal historian. The only thing I can get out of her is that she was surprised that she could not void urine. She has been very constipated lately. And there may have been some pus at home recently. [facility] Medical History (Updated 05/11/25 @ 15:20 by KADIE MARTINEZ) Peripheral edema ?R60.0 - Localized edema (ICD-10) Sinus tachycardia ?R00.0 - Tachycardia, unspecified (ICD-10) Lumbar radiculopathy ?M54.16 - Radiculopathy, lumbar region (ICD-10) Knee osteoarthritis ?M17.9 - Osteoarthritis of knee, unspecified (ICD-10) Elevated alkaline phosphatase level ?R74.8 - Abnormal levels of other serum enzymes (ICD-10) Neutropenia ?D70.9 - Neutropenia, unspecified (ICD-10) Peripheral edema ?R60.0 - Localized edema (ICD-10) Shortness of breath ?R06.02 - Shortness of breath (ICD-10) URI (upper respiratory infection) ?J06.9 - Acute upper respiratory infection, unspecified (ICD-10) Lumbar stenosis with neurogenic claudication ?M48.062 - Spinal stenosis, lumbar region with neurogenic claudication (ICD-10) Chronic pain ?G89.29 - Other chronic pain (ICD-10) Hyperglycemia ?R73.9 - Hyperglycemia, unspecified (ICD-10) Recurrent UTI ?N39.0 - Urinary tract infection, site not specified (ICD-10) Atelectasis of both lungs ?J98.11 - Atelectasis (ICD-10) C2 cervical fracture ?S12.100A - Unspecified displaced fracture of second cervical vertebra, initial encounter for closed fracture (ICD-10) Shoulder pain, left ?M25.512 - Pain in left shoulder (ICD-10) Pulmonary embolism ?I26.99 - Other pulmonary embolism without acute cor pulmonale (ICD-10) DVT (deep venous thrombosis) ?I82.409 - Acute embolism and thrombosis of unspecified deep veins of unspecified lower extremity (ICD-10) Osteoporosis ?M81.0 - Age-related osteoporosis without current pathological fracture (ICD-10) Seizures ?R56.9 - Unspecified convulsions (ICD-10) IBS (irritable bowel syndrome) ?K58.9 - Irritable bowel syndrome without diarrhea (ICD-10) Chronic kidney insufficiency ?N18.9 - Chronic kidney disease, unspecified (ICD-10) Lymphedema ?I89.0 - Lymphedema, not elsewhere classified (ICD-10) Volume overload ?E87.70 - Fluid overload, unspecified (ICD-10) Anemia of chronic disease ?D63.8 - Anemia in other chronic diseases classified elsewhere (ICD-10) Chronic kidney disease ?N18.9 - Chronic kidney disease, unspecified (ICD-10) Acute kidney injury ?N17.9 - Acute kidney failure, unspecified (ICD-10) Edema of lower leg due to peripheral venous insufficiency ?I87.2 - Venous insufficiency (chronic) (peripheral) (ICD-10) ?R60.0 - Localized edema (ICD-10) Depression ?F32.A - Depression, unspecified (ICD-10) Gastroenteritis ?K52.9 - Noninfective gastroenteritis and colitis, unspecified (ICD-10) Migraine without aura and without status migrainosus, not intractable ?G43.009 - Migraine without aura, not intractable, without status migrainosus (ICD-10) Chronic heart failure with preserved ejection fraction (HFpEF) ?I50.32 - Chronic diastolic (congestive) heart failure (ICD-10) Chest pain ?R07.9 - Chest pain, unspecified (ICD-10) Osteoarthritis ?M19.90 - Unspecified osteoarthritis, unspecified site (ICD-10) Anemia ?D64.9 - Anemia, unspecified (ICD-10) Anxiety ?F41.9 - Anxiety disorder, unspecified (ICD-10) Stroke ?I63.9 - Cerebral infarction, unspecified (ICD-10) Acid reflux ?K21.9 - Gastro-esophageal reflux disease without esophagitis (ICD-10) Hypothyroid ?E03.9 - Hypothyroidism, unspecified (ICD-10) COPD (chronic obstructive pulmonary disease) ?J44.9 - Chronic obstructive pulmonary disease, unspecified (ICD-10) Asthma ?J45.909 - Unspecified asthma, uncomplicated (ICD-10) CHF (congestive heart failure) ?I50.9 - Heart failure, unspecified (ICD-10) Irregular heart beat ?I49.9 - Cardiac arrhythmia, unspecified (ICD-10) HTN (hypertension) ?I10 - Essential (primary) hypertension (ICD-10) Heart attack ?I21.9 - Acute myocardial infarction, unspecified (ICD-10) Lumbar spondylosis ?M47.816 - Spondylosis without myelopathy or radiculopathy, lumbar region (ICD-10) Surgical History H/O cervical spinal arthrodesis ?Z98.1 - Arthrodesis status (ICD-10) Port-A-Cath in place ?Z95.828 - Presence of other vascular implants and grafts (ICD-10) History of lumbar fusion ?Z98.1 - Arthrodesis status (ICD-10) H/O hysterectomy with oophorectomy H/O gastric bypass ?Z98.84 - Bariatric surgery status (ICD-10) History of hernia repair ?Z98.890 - Other specified postprocedural states (ICD-10) ?Z87.19 - Personal history of other diseases of the digestive system (ICD-10) History of rotator cuff surgery ?Z98.890 - Other specified postprocedural states (ICD-10) History of right knee joint replacement ?Z96.651 - Presence of right artificial knee joint (ICD-10) History of appendectomy ?Z90.49 - Acquired absence of other specified parts of digestive tract (ICD-10) Hx of cholecystectomy ?Z90.49 - Acquired absence of other specified parts of digestive tract (ICD-10) Family History Father Family history of CHF (congestive heart failure) Family history of diabetes mellitus Family history of hypertension Family history of myocardial infarction Family history of stroke Mother Family history of CHF (congestive heart failure) Family history of COPD (chronic obstructive pulmonary disease) Family history of diabetes mellitus Family history of hypertension Family history of myocardial infarction Family history of stroke Social History Within the past year, how often did you have a drink containing alcohol: never Within the past year, how often did you have six or more drinks on one occasion: never Score interpretation: A score less than 3 is consistent with normal alcohol consumption. 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 Highest level of school completed/degree received: some college, no degree Are you now , , , , never or living with a partner: In a typical week, how many times do you talk on the telephone with family, friends, or neighbors: 3 or more times per week How often do you get together with friends or relatives: twice per week How often do you attend uatsdin or synagogue services: 4 or more times per year Do you belong to any clubs or organizations such as uatsdin groups unions, fraternal or athletic groups, or school groups: no Total score: 3 Score interpretation: A score of greater than or equal to 2 indicates the lowest level of social isolation. Little interest or pleasure in doing things: not at all Feeling down, depressed, or hopeless: not at all Feel stressed/tense/nervous/anxious/difficulty sleeping: to some extent Life stressors: recent of family or friend Do you think of yourself as: straight/heterosexual Gender Identity: female Meds Home Medications and Allergies Home Medications ?Medication ?Instructions ?Recorded ?Confirmed ?Type alprazolam 0.5 mg tablet 0.5 mg PO BID PRN anxiety 12/08/22 05/11/25 History amitriptyline 150 mg tablet 300 mg PO BEDTIME 12/08/22 05/11/25 History calcium acetate(phosphat bind) 667 667 mg PO BIDWM 12/08/22 05/11/25 History mg capsule levothyroxine 100 mcg tablet 100 mcg PO DAILY 12/08/22 05/11/25 History linaclotide 290 mcg capsule 290 mcg PO .QOD 12/08/22 05/11/25 History (Linzess) oxycodone-acetaminophen 5 mg-325 1 tab PO Q6H PRN pain 12/08/22 05/11/25 History mg tablet primidone 50 mg tablet 150 mg PO BEDTIME 12/08/22 05/11/25 History tizanidine 4 mg tablet (Zanaflex) 4 mg PO Q6H PRN muscle spasticity 12/08/22 05/11/25 History azelastine 0.05 % eye drops 1 drp ophthalmic (eye) DAILY 09/29/23 05/11/25 History doxepin 10 mg capsule 20 mg PO BEDTIME 09/29/23 05/11/25 History escitalopram oxalate 20 mg tablet 20 mg PO DAILY 09/29/23 05/11/25 History fentanyl 100 mcg/hr transdermal 1 patch transdermal Q72H 10/12/23 05/11/25 History patch pramipexole 1 mg tablet 1 mg PO .QHS 10/23/23 05/11/25 History sacubitril 49 mg-valsartan 51 mg 1 tab PO BID 01/04/24 05/11/25 History tablet (Entresto) calcitriol 0.5 mcg capsule 0.5 mcg PO DAILY 10/07/24 05/11/25 History ybrlebjrkj-abbnyxhzvpipz-xhphjypl 1 tab PO BID PRN migraine headache 10/15/24 05/11/25 History 50 mg-325 mg-40 mg tablet liothyronine 25 mcg tablet 25 mcg PO DAILY 10/15/24 05/11/25 History diltiazem HCl 120 mg 120 mg PO DAILY 05/11/25 05/11/25 History capsule,extended release 24 hr docusate sodium 100 mg capsule 100 mg PO .QHS 05/11/25 05/11/25 History (Colace) fexofenadine 180 mg tablet 180 mg PO DAILY 05/11/25 05/11/25 History (Tammie Allergy) magnesium 250 mg tablet 250 mg PO DAILY 05/11/25 05/11/25 History multivitamin 1 tab PO DAILY 05/11/25 05/11/25 History quetiapine 50 mg tablet 50 mg PO DAILY 05/11/25 05/11/25 History Allergies Allergy/AdvReac Type Severity Reaction Status Date / Time povidone-iodine (From Allergy Intermediate Rash Verified 05/11/25 00:32 Betadine) amoxicillin (From Augmentin) AdvReac Mild Vomiting Verified 05/11/25 00:32 clavulanic acid (From AdvReac Mild Vomiting Verified 02/10/25 12:00 Augmentin) Sulfa (Sulfonamide AdvReac Mild Vomiting Verified 05/11/25 00:32 Antibiotics) ciprofloxacin (From Cipro) AdvReac Unknown Vomiting Verified 05/11/25 00:32 Exam Narrative Exam Narrative: General: Seen in bed she is talkative, but most the stuff she talks about does not make any sense. She complains about having a fall and hitting the right side of her head although I see no bruising. She is not complaining of any fullness of her bladder. She does complain of constipation. I assured her that we will medicate her for this. She denies shortness of breath. She denies nausea or vomiting. Vital signs: Temperature 97.5, pulse 104, blood pressure 153/83. Pulse oximetry is 95% on room air. Respiratory rate 12. Psychiatric: Moderate metabolic encephalopathy is present. Skin: Warm and dry well-perfused. Upper extremities: Has good strength in her arms. Good dipper fish strength. Does have some twitching noted. Neck: No thyromegaly. No jugular venous distention. Oropharynx: Mucous membranes are somewhat dry. Pulmonary: Clear to auscultation. No wheezing. No rhonchi. No crackles. Cardiac: Mild sinus tachycardia in the monitor. No murmurs to auscultation. GI: Abdomen soft, somewhat hypoactive bowel sounds. No acute peritoneal signs. Lower extremities: No acute pitting edema to the lower extremities. No swelling or knots in the calves bilaterally. Strength of the lower extremities: She has difficulty dragging both heels up and down in bed. When I ask her to plantarflex and dorsiflex against my hands she has sort of a jerking movement. She has brisk Babinski's to both feet at this is a very variable picture of weakness. I think some of it is real weakness to both lower extremities but some of it is inability on the patient's part to follow my directions. Constitutional Vital Signs, click to edit/add: Last Vital Signs Temp 97.8 F 05/11/25 12:00 Pulse 104 H 05/11/25 14:00 Resp 16 05/11/25 12:00 BP 176/107 H 05/11/25 14:56 Pulse Ox 95 05/11/25 12:00 O2 Del Method Room Air 05/11/25 12:00 Results Labs Labs: Short CBC 05/11/25 Range/Units 00:54 WBC 5.5 (4.0-11.0) 10^3/uL Hgb 9.6 L (12.0-16.0) g/dL Hct 31.2 L (36.0-48.0) % Plt Count 222 (150-450) 10^3/uL BMP 05/11/25 05/11/25 05/11/25 00:54 02:35 07:16 Sodium 140 141 140 Potassium 5.9 H 5.9 H 5.4 H Chloride 109 H 110 H 110 H Carbon Dioxide 17.9 L 18.3 L 16.3 L BUN 63.0 H 61.0 H 63.0 H Creatinine 3.80 H 3.77 H 3.73 H Glucose 87 81 77 Calcium 8.4 L 8.1 L 8.0 L 05/11/25 13:58 Sodium 142 Potassium 5.4 H Chloride 111 H Carbon Dioxide 18.4 L BUN 58.0 H Creatinine 3.71 H Glucose 94 Calcium 8.3 L Liver Function 05/11/25 Range/Units 07:16 Total Bilirubin 0.3 (0.2-1.0) mg/dL AST 21 (15-37) U/L ALT 19 (14-59) U/L Alkaline Phosphatase 172 H (46-116) U/L Albumin 3.1 L (3.4-5.0) g/dL Assessment and Plan Assessment and Plan (1) Acute kidney injury: (2) Acute hyperkalemia: (3) Metabolic acidosis: (4) Constipation: (5) Urinary retention: (6) Metabolic encephalopathy: Plan Discussion: One of her newest medications appears to be a diltiazem. This may have worsened constipation. But I will continue diltiazem at this time for heart rate control. Also very new, dated 05/03, is pramipexole. I will stop this. Her twitching may be from uremia from the acute kidney injury. Another medication on her list is torsemide 100 mg daily, prescribed on 03/25/[address] Raeann Wallace. Given the acute kidney injury will continue to hold: Entresto. Continue to hold: Zanaflex. This may be contributing to metabolic encephalopathy and her jerking motions. When the nurse did the patient's medication reconciliation with the patient's there were some changes from what she had taken in the past. It seems that Eliquis was stopped due to bleeding. Desvenlafaxine was stopped but then replaced with Seroquel. The patient stopped sevelamer due to stomach upset, and fortunately she stopped torsemide. The patient has also been taking Colace and magnesium, Tammie, and a multivitamin. Assessment: Acute kidney injury. High likelihood of acute tubular necrosis. Acute hyperkalemia, due to the acute kidney injury. Acute metabolic encephalopathy, due to all the above. Acute metabolic acidosis, due to the acute kidney injury. Clinical dehydration. Constipation. Development today of acute urinary bladder retention. This was treated 1 time with a straight cath and 1500 mL of urine out. Nursing staff says that this patient normally voids without difficulty and she normally has not needed Farrar catheterization. Second development is weakness of the lower extremities, which is of an uncertain etiology at this time. Plan: Hospital admission, inpatient status. She has received IV fluids with normal saline through this morning. After that bag is done we will switch her to D5W with 3 A of sodium bicarb at 125 mL an hour for 2000 mL. Recheck BMP tonight to make sure the potassium is improving. The admitting hospitalist overnight, Dr. Vanegas, ordered a renal ultrasound. This will likely get done tomorrow. Avoid nephrotoxic medications. As above hold Entresto, as it contains an ARB, and hold Zanaflex as this may contribute to the jerking motions. Continue stronger bowel regimen. I did check her [place]AR[place] report regarding her long-term use of of Percocet, fentanyl patch, and Xanax. For the weakness in both legs, with some falls at home, and with the patient not really able to tell me much about her symptoms or how long they have been going on I have ordered a CT scan of her cervical spine and lumbar spine. If she should have additional urinary bladder retention then Farrar catheter should be placed. DVT prophylaxis with heparin 5000 units subcutaneously every 12 hours. For tomorrow morning checking labs including T4 thyroxine, routine T3, and free T3, phosphorus, magnesium, BMP, and CBC. For tomorrow morning awaiting ultrasound of both kidneys. Urinary Catheter Management Urinary Catheter Management Straight: Cath placed during this visit: yes Urethral indwelling: No Insertion date: 05/11/25 Insertion time: 08:05
[2025-05-11] MEDS: METOPROLOL TARTRATE 5 MG/5 ML VIAL IVP ×2 (15:12→19:56)
[2025-05-11] MEDS: DICLOFENAC SODIUM 1% 100 GM TUBE TOPICAL ×2 (18:14→22:12)
[2025-05-11] MEDS: HEPARIN SODIUM (PORCINE) 5,000 UNIT/ML VIAL 5000 UNIT SUBQ (18:14)
[2025-05-11] MEDS: OXYCODONE HCL/ACETAMINOPHEN 5MG/325MG 1 TAB PO (19:56)
[2025-05-11] MEDS: DOCUSATE SODIUM 100 MG CAPSULE PO (22:11)
[2025-05-11] MEDS: PRIMIDONE 50 MG TABLET 150 MG PO (22:11)
[2025-05-11] MEDS: QUETIAPINE FUMARATE 25 MG TABLET 50 MG PO (22:12)
[2025-05-11] MEDS: DOXEPIN HCL 10 MG CAPSULE 20 MG PO (22:12)
[2025-05-11 23:16] LABS: Anion Gap 14.7; Blood Urea Nitrogen 55.0 mg/dL (7.0-18.0); Calcium 8.0 mg/dL (8.5-10.1); Carbon Dioxide 22.9 mmol/L (21.0-32.0); Chloride 105 mmol/L (98-107); Estimated GFR (African America 16 (>=60 mL/min/1.73m^2); Estimated GFR (Non-African Ame 13 (>=60 mL/min/1.73m^2); Glucose 106 mg/dL (74-106); Potassium 4.6 mmol/L (3.5-5.1); Sodium 138 mmol/L (136-145)
[2025-05-12] VITALS (20 sets, daily range): BP systolic 137–178; BP diastolic 76–114; PULSE 70–102; TEMP 36.4–36.9; O2SAT 91–96
[2025-05-12] MEDS: OXYCODONE HCL/ACETAMINOPHEN 5MG/325MG 1 TAB PO ×3 (02:02→17:14)
[2025-05-12 05:50] LABS: Hematocrit 25.9 % (36.0-48.0); Hemoglobin 8.2 g/dL (12.0-16.0); Mean Corpuscular HGB Conc 31.7 g/dL (29.9-35.2); Mean Corpuscular Hemoglobin 30.9 pg (26.7-34.0); Mean Corpuscular Volume 97.7 fL (81.0-99.0); Platelet Count 210 10^3/uL (150-450); Red Blood Count 2.65 10^6/uL (4.20-5.40); White Blood Count 5.0 10^3/uL (4.0-11.0)
[2025-05-12] MEDS: HEPARIN SODIUM (PORCINE) 5,000 UNIT/ML VIAL 5000 UNIT SUBQ ×3 (05:55→21:03)
[2025-05-12] MEDS: DICLOFENAC SODIUM 1% 100 GM TUBE TOPICAL ×4 (05:56→21:04)
[2025-05-12] MEDS: LEVOTHYROXINE SODIUM 100 MCG TABLET PO (05:56)
[2025-05-12 06:05] LABS: Anion Gap 13.8; Blood Urea Nitrogen 53.0 mg/dL (7.0-18.0); Calcium 7.7 mg/dL (8.5-10.1); Carbon Dioxide 24.3 mmol/L (21.0-32.0); Chloride 104 mmol/L (98-107); Estimated GFR (African America 17 (>=60 mL/min/1.73m^2); Estimated GFR (Non-African Ame 14 (>=60 mL/min/1.73m^2); Glucose 97 mg/dL (74-106); Potassium 4.1 mmol/L (3.5-5.1); Sodium 138 mmol/L (136-145)
[2025-05-12 06:29] LABS: Magnesium 2.0 mg/dL (1.8-2.4)
--- NOTE | 2025-05-12 07:50 | CM.NOTE ---
Rounds made with Dr. Vanegas, discussed with pt plan of care. Updated Dr. Vanegas need for status order and code status. Pt will have renal ultrasound today. Continue treatment as ordered.
[2025-05-12] MEDS: ESCITALOPRAM 10 MG TABLET 20 MG PO (08:59)
[2025-05-12] MEDS: MAGNESIUM OXIDE 400 MG TABLET PO (08:59)
[2025-05-12] MEDS: DILTIAZEM HCL 120 MG CAP.ER.24H PO (08:59)
[2025-05-12] MEDS: CALCITRIOL 0.25 MCG CAPSULE 0.5 MCG PO (08:59)
[2025-05-12] MEDS: MULTIVITAMIN TABLET 1 TAB PO (08:59)
[2025-05-12] MEDS: CETIRIZINE HCL 10 MG TABLET PO (08:59)
[2025-05-12] MEDS: FENTANYL 50 MCG/HR PATCH.TD72 100 MCG TD (09:01)
--- NOTE | 2025-05-12 09:50 | CA_ITS ---
Patient Name: JOSE CLEMENTS MR#: [id number] : 1960 Exam Date: 05/12/2025 Ordering Doctor: DON BOLAÑOS ECHOCARDIOGRAM REPORT normal left ventricle systolic function without wall motion abnormalities, PROCEDURE: CA ECHO DOPPLER COMPLETE INDICATIONS: Assess function and valves, congestive heart failure, MA, stroke, COPD, hypertension, h/o pulmonary emboli COMPARISON: None. DESCRIPTION: COMPLETE ECHOCARDIOGRAM Real-time transthoracic echocardiography with 2D, M-mode, spectral and color flow Doppler performed. QUALITY: Technical quality was good. LEFT VENTRICLE: Normal chamber size. Mild concentric left ventricular hypertrophy. Normal left ventricle systolic function without wall motion abnormalities calculated left ventricular ejection fraction is 61%. LV EF: Normal left ventricular ejection fraction, (>55%). DIASTOLIC: Grade II diastolic dysfunction. ATRIAL SEPTUM: Visually appears intact LEFT ATRIUM: Mild dilatation. RIGHT ATRIUM: Normal chamber size. RIGHT VENTRICLE: Normal chamber size. Normal right ventricular systolic function. TRICUSPID VALVE: Normal mobility and thickness. No stenosis with trace regurgitation. Doppler studies reveal moderately (45-60) elevated right sided pressures.RVSP 49 mmHg MITRAL VALVE: Normal mobility and thickness. No evidence of mitral valve stenosis. Mild mitral annular calcification. Trivial mitral regurgitation. AORTIC VALVE: Normal trileaflet appearance. No visible sclerosis. Normal leaflet mobility. No evidence of aortic valve stenosis. No aortic regurgitation. AORTIC ROOT: Normal diameter and appearance. PULMONIC VALVE: Normal thickness and mobility. No stenosis. No regurgitation. PERICARDIUM: No evidence of pericardial effusion. IVC: IVC is normal in size, does not fully collapse. PLEURA: CONCLUSION: Normal left ventricle cavity size Mild concentric left ventricle hypertrophy Normal left ventricle systolic function without wall motion abnormalities, ejection fraction 61% Grade 2 left ventricle diastolic dysfunction Mildly dilated left atrium Normal right ventricle size and systolic function Moderate pulmonary hypertension, RVSP 49 mmHg No significant valvular abnormalities Adult Echocardiography Procedure Report Left Ventricle LVEDD (3.7 - 5.6 cm): 3.95 cm LVESD (2.2 - 4.0 cm): 2.90 cm LVIVS thickness (0.6 - 1.2 cm): 1.33 cm LVPW thickness (0.5 - 1.0 cm): 1.29 cm e': 0.19 m/s E - e': 6.23 LVOT Max Gradient: 7.46 mm[Hg] LVOT Area (cm2): 1.37 m/s Peak Velocity (LVOT): 1.37 m/s Mean Velocity (LVOT): 0.87 m/s LVOT Diameter 1.91 cm Left Ventricular Ejection Fraction: 61.12 % Left Atrium LA Volume Index (2D A2C): 41.92 ml/m2 Left Atrium Systolic Dimension: 3.59 cm Mitral Valve MV E to A Ratio: 1.11 Mitral Valve A-Wave Peak Velocity: 1.05 m/s Mitral Valve E-Wave Peak Velocity: 1.16 m/s Right Ventricle Aorta AO Root Diam: 3.09 cm Aortic Valve AoV Area (Peak Vasyl): 2.09 cm2, 2.09 cm2 AoV Area (VTI): 2.27 cm2, 2.27 cm2 Peak Velocity(Antegrade Flow): 1.87 m/s Peak Gradient(Antegrade Flow): 14.04 mm[Hg] Mean Velocity(Antegrade Flow): 1.24 m/s Mean Gradient(Antegrade Flow): 6.98 mm[Hg] Velocity Time Integral: 34.30 cm Tricuspid Valve Peak Velocity (Regurgitant Flow): 3.22 m/s Pulmonic Valve Mean Gradient: 4.13 mm[Hg] Mean Velocity: 0.94 m/s Peak Velocity: 1.56 m/s Peak Gradient: 9.74 mm[Hg] Right Atrium Right Atrium Systolic Pressure: 33.08 ml, 33.08 ml Dictated by: Paulina De Guzman MD on 05/12/2025 at 18:31 Approved by: Paulina De Guzman MD on 05/12/2025 at 18:39
--- NOTE | 2025-05-12 09:53 | P.PN_ITS ---
Progress Note: Subjective Subjective Interval history: Patient is feeling better. Chronic pain in her neck and back. Nothing new. She denies any chest or abdominal pain. She reported that she had bowel movement Exam Narrative Exam Narrative: [pt is awake and alert. oriented to place, time and person HEENT: [place] conjunctiva and NL buccal mucosa Neck: Supple, no tenderness Endocrine: No Thyromegaly. Vascular: No JVD or carotid bruit. Lymphatic: No cervical lymphadenopathy. Chest: CTA no DTP. Heart RRR, no extra sound or murmur. Abd: Soft, no tenderness, no rebound and no rigidity. Increase abd girth ther efore clinically I could not exclude the possibility of intra abd mass or organomegaly. LE: No cyanosis or clubbing, no varices or edema. Mild tenderness in the cervical lumbar spine Neuro: A A O. Nl speech, comprehension and attention. Nl and symetrical motor and tone examination through out. Generalized weakness and fatigue. No unilateral deficit. []] Constitutional Vital Signs, click to edit/add: Last Vital Signs Temp 97.5 F L 05/12/25 08:20 Pulse 99 H 05/12/25 08:20 Resp 18 05/12/25 08:20 BP 168/76 H 05/12/25 08:20 Pulse Ox 95 05/12/25 08:20 O2 Del Method Room Air 05/12/25 08:20 Progress Note: Objective Labs Labs: Short CBC 05/12/25 Range/Units 05:40 WBC 5.0 (4.0-11.0) 10^3/uL Hgb 8.2 L (12.0-16.0) g/dL Hct 25.9 L (36.0-48.0) % Plt Count 210 (150-450) 10^3/uL BMP 05/11/25 05/11/25 05/12/25 13:58 23:03 05:40 Sodium 142 138 138 Potassium 5.4 H 4.6 4.1 Chloride 111 H 105 104 Carbon Dioxide 18.4 L 22.9 24.3 BUN 58.0 H 55.0 H 53.0 H Creatinine 3.71 H 3.48 H 3.33 H Glucose 94 106 97 Calcium 8.3 L 8.0 L 7.7 L Progress Note: A&P Assessment and Plan (1) Acute kidney injury: (2) Acute hyperkalemia: (3) Metabolic acidosis: (4) Constipation: (5) Urinary retention: (6) Metabolic encephalopathy: Plan LEEANN/CKD. Metabolic acidosis Hyperphosphatemia Continue to hold potential offensive drugs such as ARNI and diuretics Ultrasound kidneys today rule out obstructive uropathy. Patient did have urinary retention, 1500 mL. Farrar catheter was placed in Blood pressure is on the high side. Avoid additional IV fluid infusion and allo w kidney function to normalize back to baseline with next 2 to 3 days Requested UA rule out microscopic immaturity or proteinuria that would suggest glomerulonephritis Urinary retention more than 1500 mL Farrar catheter was placed in Patient is on multiple medications that could potentially affect bladder function including multiple pain medications, anticholinergics and a ntipsychotics Trial of Farrar removal in 1 to 2 days Ultimately, the patient will require additional urological investigation for this. This may include but not limited to needing to have cystoscopy, urodynamic study, RN LICENSED PRACTICAL examination rule out pelvic pathology. Encephalopathy Likely metabolic encephalopathy caused by extensive polypharmacy and LEEANN. Patient is more awake today. Neck is supple. No clinical evidence to suggest meningitis or encephalitis Consideration for CT head. Anemia, no evidence of acute blood loss. Hemoglobin drop over the last 24 hours could be related to IV hydration. This could be related to CKD. Requested to check iron, TIBC, iron saturation, ferritin, B12 and folate Consideration to start patient on erythropoietin injection Patient will likely require to have anemia workup to be done in the outpatient setting to be handled by PCP in collaboration with other needed outpatient providers. This may include but not limited to EGD, colonoscopy, referral to see hematology and other needed age-appropriate cancer screening. Hypotension on presentation likely contributing to her LEEANN. Continue to hold ARNI Chronic pain Resume preadmission home pain medication with monitor modification to avoid opiates withdrawal. DVT prophylax Heparin subcu Polypharmacy Her medication regimen will need to be adjusted slowly and gradually over the next several weeks to reduce her risk of having drug?drug interaction and/or adverse effect. This again would need to be done very gradually and slowly in the outpatient setting to prevent withdrawal symptoms Chronic, subacute medical conditions not listed above, abnormal labs and imaging, incidental findings seen on labs and or imaging. These would need to be addressed. Could be addressed later on or in the outpatient setting by PCP collaboration with other needed outpatient providers when time and condition are appropriate. Urinary Catheter Management Urinary Catheter Management Straight: Cath placed during this visit: yes Urethral indwelling: No Insertion date: 05/11/25 Insertion time: 16:50
[2025-05-12 10:27] LABS: Iron 50.0 ug/dL (50.0-170.0); Percent Iron Saturation 30.7 %; Total Iron Binding Capacity 163.0 ug/dL (250.0-450.0)
[2025-05-12 10:51] LABS: Ferritin 173.0 ng/mL (8.0-252.0)
--- NOTE | 2025-05-12 10:51 | SWNOTE1 ---
SW met with pt to discuss dc needs. Pt live at home with her . Pt uses a rollator at home. Pt sitting up in chair when SW arrived. Pt does not have any services coming in to the home. Pt had a fall at home, 2 falls. She started a new blood pressure medication and it does not make her feel well. Pt did voice to SW that she did have a bad experience in the ED with Dr. Meek. She voiced that he made her feel like a drug seeker and she stated nobody should feel that way. She was sent home with just Tylenol after her first fall and no blood work done. She fell again after getting home and then returned to the ED. Pt expressed to SW that she only comes to the hospital when she truly does not feel well and something off. Pt stated she was really upset by the ED encounter. SW to pass this on to Hao, head of MED/SURGE and ED. At this time unsure of pt's discharge needs. SW to follow as needed.
--- NOTE | 2025-05-12 11:15 | SWNOTE1 ---
PILAR did email Hao the director of MED/SURGE and ED with pt's concerns of her ED visit on 05/10/25.
--- NOTE | 2025-05-12 12:02 | CM.NOTE ---
Important Message From Medicare discussed with pt, pt verbalizes understanding and signs paper. Original given to pt and copy placed in pt's chart.
--- NOTE | 2025-05-12 12:04 | SWNOTE1 ---
SW received a call from Blanca Del Rosario, director of ED, and she did receive SW email with concerns and did ask if pt was still in hospital. SW confirmed pt is on med/surge and no discharge today.
[2025-05-12 12:50] LABS: Glucose Urine UA NEGATIVE (NEGATIVE)
[2025-05-12 13:04] LABS: Cast Seen? NONE SEEN #/LPF (NONE SEEN); Crystals Seen? None Seen #/HPF (None Seen); Urine Culture Indicated YES-FRMC
[2025-05-12] MEDS: DILTIAZEM HCL 60 MG TABLET 30 MG PO ×2 (13:28→21:03)
[2025-05-12] MEDS: CALCIUM ACETATE 667 MG CAPSULE 1334 MG PO (17:14)
--- NOTE | 2025-05-12 17:14 | XR_ITS ---
The [address] [address] Patient Name: JOSE CLEMENTS MRN: [id number] date: 1960 Sex: F Assigned Patient Location: [place] Current Patient Location: Accession/Order Number: [id number] Exam Date: 05/12/2025 17:30 Report Date: 05/12/2025 21:50 At the request of: DON BOLAÑOS MD Procedure: XR chest 1V XR chest 1V 05/12/2025 5:40 PM SIGNS AND SYMPTOMS: ^cough PROTOCOL: Frontal radiograph of the chest COMPARISON: 10/15/2024 FINDINGS: The trachea is midline. There is a right-sided [id number]. The heart and mediastinal structures are within normal limits. There is linear scarring or atelectasis at the left lung base. The bony thorax is intact. There is a dextro convex curvature of the thoracic spine. Degenerative changes are noted in the shoulders and thoracic spine. XR/XR chest 1V IMPRESSION: No acute cardiopulmonary pathology. Impression dictated by: Fidel Estrada M.D. 05/12/2025 9:50 PM Dictation Location: [place] [address] Electronically authenticated by: [id number] Y Date: 05/12/2025 21:50
[2025-05-12] MEDS: QUETIAPINE FUMARATE 25 MG TABLET 50 MG PO (21:02)
[2025-05-12] MEDS: PRIMIDONE 50 MG TABLET 150 MG PO (21:03)
[2025-05-12] MEDS: DOXEPIN HCL 10 MG CAPSULE 20 MG PO (21:03)
[2025-05-12] MEDS: DOCUSATE SODIUM 100 MG CAPSULE PO (21:03)
[2025-05-12] MEDS: METOPROLOL TARTRATE 5 MG/5 ML VIAL IVP (22:55)
[2025-05-12] MEDS: ALPRAZOLAM 0.25 MG TABLET 0.5 MG PO (22:55)
[2025-05-13] VITALS (18 sets, daily range): BP systolic 132–188; BP diastolic 84–119; PULSE 68–100; TEMP 36.6–36.7; O2SAT 96–98
[2025-05-13] MEDS: DICLOFENAC SODIUM 1% 100 GM TUBE TOPICAL ×4 (05:44→21:37)
[2025-05-13] MEDS: OXYCODONE HCL/ACETAMINOPHEN 5MG/325MG 1 TAB PO ×2 (05:45→12:57)
[2025-05-13] MEDS: LEVOTHYROXINE SODIUM 75 MCG TABLET PO (05:45)
[2025-05-13] MEDS: HEPARIN SODIUM (PORCINE) 5,000 UNIT/ML VIAL 5000 UNIT SUBQ ×3 (05:45→21:35)
[2025-05-13 05:58] LABS: Hematocrit 29.9 % (36.0-48.0); Hemoglobin 9.5 g/dL (12.0-16.0); Mean Corpuscular HGB Conc 31.8 g/dL (29.9-35.2); Mean Corpuscular Hemoglobin 30.9 pg (26.7-34.0); Mean Corpuscular Volume 97.4 fL (81.0-99.0); Platelet Count 230 10^3/uL (150-450); Red Blood Count 3.07 10^6/uL (4.20-5.40); White Blood Count 5.1 10^3/uL (4.0-11.0)
[2025-05-13 06:06] LABS: Anion Gap 12.4; Blood Urea Nitrogen 49.0 mg/dL (7.0-18.0); Calcium 8.2 mg/dL (8.5-10.1); Carbon Dioxide 25.6 mmol/L (21.0-32.0); Chloride 100 mmol/L (98-107); Estimated GFR (African America 18 (>=60 mL/min/1.73m^2); Estimated GFR (Non-African Ame 15 (>=60 mL/min/1.73m^2); Glucose 91 mg/dL (74-106); Potassium 4.0 mmol/L (3.5-5.1); Sodium 134 mmol/L (136-145)
[2025-05-13 06:35] LABS: Folate 27.20 ng/mL (8.60-58.90)
[2025-05-13 08:10] LABS: Triiodothyronine (T3), Free 2.4 pg/mL (2.0-4.4)
[2025-05-13] MEDS: DILTIAZEM HCL 180 MG CAP.ER.24H PO (08:37)
[2025-05-13] MEDS: CALCIUM ACETATE 667 MG CAPSULE 1334 MG PO ×3 (08:37→17:09)
[2025-05-13] MEDS: MULTIVITAMIN TABLET 1 TAB PO (08:37)
[2025-05-13] MEDS: ESCITALOPRAM 10 MG TABLET 20 MG PO (08:37)
[2025-05-13] MEDS: CALCITRIOL 0.25 MCG CAPSULE 0.5 MCG PO (08:37)
[2025-05-13] MEDS: MAGNESIUM OXIDE 400 MG TABLET PO (08:37)
--- NOTE | 2025-05-13 08:50 | CM.NOTE ---
Rounds made with Dr. Vanegas, discussed plan of care and am labs. No discharge today.
--- NOTE | 2025-05-13 10:12 | PM.PN ---
Progress Note: Subjective Subjective Interval history: Patient is feeling better. Chronic pain in her neck and back. Nothing new. She denies any chest or abdominal pain. She reported that she had bowel movement Exam Narrative Exam Narrative: [pt is awake and alert. oriented to place, time and person HEENT: [place] conjunctiva and NL buccal mucosa Neck: Supple, no tenderness Endocrine: No Thyromegaly. Vascular: No JVD or carotid bruit. Lymphatic: No cervical lymphadenopathy. Chest: CTA no DTP. Heart RRR, no extra sound or murmur. Abd: Soft, no tenderness, no rebound and no rigidity. Increase abd girth therefore clinically I could not exclude the possibility of intra abd mass or organomegaly. LE: No cyanosis or clubbing, no varices. Nonpitting edema. Mild tenderness in the cervical lumbar spine Neuro: A A O. Nl speech, comprehension and attention. Nl and symetrical motor and tone examination through out. Generalized weakness and fatigue. No unilateral deficit. []] Constitutional Vital Signs, click to edit/add: Last Vital Signs Temp 98.1 F 05/13/25 08:03 Pulse 87 05/13/25 09:54 Resp 16 05/13/25 08:03 BP 188/119 H 05/13/25 08:03 Pulse Ox 98 05/13/25 08:03 O2 Del Method Room Air 05/13/25 08:03 Progress Note: Objective Labs Labs: Short CBC 05/13/25 Range/Units 05:48 WBC 5.1 (4.0-11.0) 10^3/uL Hgb 9.5 L (12.0-16.0) g/dL Hct 29.9 L (36.0-48.0) % Plt Count 230 (150-450) 10^3/uL BMP 05/13/25 05:48 Sodium 134 L Potassium 4.0 Chloride 100 Carbon Dioxide 25.6 BUN 49.0 H Creatinine 3.10 H Glucose 91 Calcium 8.2 L Urine 05/12/25 Range/Units 12:10 Urine Color Lt. yellow (YELLOW) Urine Clarity Clear (CLEAR) Urine pH 6.0 (5.0-9.0) Ur Specific [place] 1.010 (1.005-1.025) Urine Protein Negative (NEG/TRACE) mg/dL Urine Glucose (UA) Negative (NEGATIVE) mg/dL Progress Note: A&P Assessment and Plan (1) Acute kidney injury: (2) Acute hyperkalemia: (3) Metabolic acidosis: (4) Constipation: (5) Urinary retention: (6) Metabolic encephalopathy: Plan LEEANN/CKD. Metabolic acidosis Hyperphosphatemia Likely caused by bladder retention as well as patient taking ARNI and diuretics. Continue to hold potential offensive drugs such as ARNI and diuretics Ultrasound kidneys does not show obstructive uropathy Patient did have urinary retention, 1500 mL. Farrar catheter was placed in Blood pressure is on the high side. Avoid additional IV fluid infusion and allow kidney function to normalize back to baseline with next 2 to 3 days Requested UA rule out microscopic immaturity or proteinuria that would suggest glomerulonephritis Urinary retention more than 1500 mL Probable UTI Farrar catheter was placed in Patient is on multiple medications that could potentially affect bladder function including multiple pain medications, anticholinergics and antipsychotics Start the patient on antibiotic. Urine culture is pending. Trial of Farrar removal in 1 to 2 days Ultimately, the patient will require additional urological investigation for this. This may include but not limited to needing to have cystoscopy, urodynamic study, LUM[employer]VAGER examination rule out pelvic pathology. Encephalopathy Likely metabolic encephalopathy caused by extensive polypharmacy and LEEANN. Patient is more awake today. Neck is supple. No clinical evidence to suggest meningitis or encephalitis Anemia, no evidence of acute blood loss. Hemoglobin drop over the last 24 hours could be related to IV hydration. This could be related to CKD. Requested to check iron, TIBC, iron saturation, ferritin, B12 and folate. Iron studies consistent with anemia of chronic disease. Consideration to start patient on erythropoietin injection Patient will likely require to have anemia workup to be done in the outpatient setting to be handled by PCP in collaboration with other needed outpatient providers. This may include but not limited to EGD, colonoscopy, referral to see hematology and other needed age-appropriate cancer screening. Hypotension on presentation likely contributing to her LEEANN. Continue to hold ARNI Echocardiogram does not show cardiomyopathy. No strong indication to resume ARNI while patient has CKD. Chronic pain Resume preadmission home pain medication with monitor modification to avoid opiates withdrawal. DVT prophylax Heparin subcu Polypharmacy Her medication regimen will need to be adjusted slowly and gradually over the next several weeks to reduce her risk of having drug?drug interaction and/or adverse effect. This again would need to be done very gradually and slowly in the outpatient setting to prevent withdrawal symptoms Chronic, subacute medical conditions not listed above, abnormal labs and imaging, incidental findings seen on labs and or imaging. These would need to be addressed. Could be addressed later on or in the outpatient setting by PCP collaboration with other needed outpatient providers when time and condition are appropriate. Urinary Catheter Management Urinary Catheter Management Straight: Cath placed during this visit: yes Urethral indwelling: No Insertion date: 05/11/25 Insertion time: 16:50
[2025-05-13] MEDS: CLONIDINE HCL 0.1 MG TABLET PO (11:14)
[2025-05-13] MEDS: DOXYCYCLINE HYCLATE 100 MG in 0.9 % SODIUM CHLORIDE 100 ML IV (11:26)
--- NOTE | 2025-05-13 14:03 | CM.NOTE ---
Dr. Vanegas would like order for Reglan 5mg IV q6 hr for nausea entered for patient. CM entered order
[2025-05-13] MEDS: DILTIAZEM HCL 60 MG TABLET 30 MG PO ×2 (14:21→21:36)
[2025-05-13] MEDS: METOCLOPRAMIDE HCL 10 MG/2 ML VIAL 5 MG IVP (19:32)
[2025-05-13] MEDS: METOPROLOL TARTRATE 5 MG/5 ML VIAL IVP (19:38)
[2025-05-13] MEDS: CETIRIZINE HCL 10 MG TABLET PO (21:36)
[2025-05-13] MEDS: PRIMIDONE 50 MG TABLET 150 MG PO (21:36)
[2025-05-13] MEDS: DOCUSATE SODIUM 100 MG CAPSULE PO (21:36)
[2025-05-13] MEDS: DOXEPIN HCL 10 MG CAPSULE 20 MG PO (21:36)
[2025-05-13] MEDS: QUETIAPINE FUMARATE 25 MG TABLET 50 MG PO (21:36)
[2025-05-13] MEDS: DOXYCYCLINE MONOHYDRATE 100 MG CAPSULE PO (21:36)
[2025-05-14] VITALS (21 sets, daily range): BP systolic 120–178; BP diastolic 80–110; PULSE 64–98; TEMP 36.6–36.8; O2SAT 90–99
[2025-05-14] MEDS: ALPRAZOLAM 0.25 MG TABLET 0.5 MG PO ×3 (01:14→21:35)
[2025-05-14 04:07] LABS: Vitamin B12 1413 pg/mL (232-1245)
[2025-05-14] MEDS: LEVOTHYROXINE SODIUM 75 MCG TABLET PO (05:38)
[2025-05-14] MEDS: HEPARIN SODIUM (PORCINE) 5,000 UNIT/ML VIAL 5000 UNIT SUBQ ×3 (05:38→21:37)
[2025-05-14] MEDS: DICLOFENAC SODIUM 1% 100 GM TUBE TOPICAL ×4 (05:38→21:35)
[2025-05-14 05:56] LABS: Anion Gap 11.1; Blood Urea Nitrogen 51.0 mg/dL (7.0-18.0); Calcium 8.4 mg/dL (8.5-10.1); Carbon Dioxide 26.4 mmol/L (21.0-32.0); Chloride 102 mmol/L (98-107); Estimated GFR (African America 19 (>=60 mL/min/1.73m^2); Estimated GFR (Non-African Ame 16 (>=60 mL/min/1.73m^2); Glucose 81 mg/dL (74-106); Potassium 4.5 mmol/L (3.5-5.1); Sodium 135 mmol/L (136-145)
[2025-05-14] MEDS: CALCITRIOL 0.25 MCG CAPSULE 0.5 MCG PO (08:51)
[2025-05-14] MEDS: MULTIVITAMIN TABLET 1 TAB PO (08:51)
[2025-05-14] MEDS: MAGNESIUM OXIDE 400 MG TABLET PO (08:51)
[2025-05-14] MEDS: ESCITALOPRAM 10 MG TABLET 20 MG PO (08:51)
[2025-05-14] MEDS: CALCIUM ACETATE 667 MG CAPSULE 1334 MG PO ×3 (08:51→16:48)
[2025-05-14] MEDS: OXYCODONE HCL/ACETAMINOPHEN 5MG/325MG 1 TAB PO ×3 (08:51→21:34)
[2025-05-14] MEDS: DOXYCYCLINE MONOHYDRATE 100 MG CAPSULE PO (08:52)
[2025-05-14] MEDS: DILTIAZEM HCL 240 MG CAP.ER.24H PO (08:56)
--- NOTE | 2025-05-14 09:20 | CM.NOTE ---
Rounds made with Dr. Vanegas, discussed plan of care with pt. Possible discharge to home tomorrow. Farrar cath removed and RN will do post void bladder scan. Continue other treatment as ordered.
--- NOTE | 2025-05-14 12:51 | PM.PN ---
Progress Note: Subjective Subjective Interval history: Patient is feeling better. No new symptoms since yesterday. Chronic pain in her neck and back. Nothing new. She denies any chest or abdominal pain. She reported that she had bowel movement Exam Narrative Exam Narrative: [pt is awake and alert. oriented to place, time and person HEENT: [place] conjunctiva and NL buccal mucosa Neck: Supple, no tenderness Endocrine: No Thyromegaly. Vascular: No JVD or carotid bruit. Lymphatic: No cervical lymphadenopathy. Chest: CTA no DTP. Heart RRR, no extra sound or murmur. Abd: Soft, no tenderness, no rebound and no rigidity. Increase abd girth therefore clinically I could not exclude the possibility of intra abd mass or organomegaly. LE: No cyanosis or clubbing, no varices. Nonpitting edema. Mild tenderness in the cervical lumbar spine Neuro: A A O. Nl speech, comprehension and attention. Nl and symetrical motor and tone examination through out. Generalized weakness and fatigue. No unilateral deficit. []] Constitutional Vital Signs, click to edit/add: Last Vital Signs Temp 98.3 F 05/14/25 12:00 Pulse 74 05/14/25 12:00 Resp 18 05/14/25 12:00 BP 177/85 H 05/14/25 12:00 Pulse Ox 92 L 05/14/25 12:00 O2 Del Method Room Air 05/14/25 12:00 Progress Note: Objective Labs Labs: [facility] 05/14/25 05:16 Sodium 135 L Potassium 4.5 Chloride 102 Carbon Dioxide 26.4 BUN 51.0 H Creatinine 2.96 H Glucose 81 Calcium 8.4 L Progress Note: A&P Assessment and Plan (1) Acute kidney injury: (2) Acute hyperkalemia: (3) Metabolic acidosis: (4) Constipation: (5) Urinary retention: (6) Metabolic encephalopathy: Plan LEEANN/CKD. LEEANN is improving and approaching baseline. Metabolic acidosis, resolved. Hyperphosphatemia, patient was started on PhosLo. Repeat phosphorus level in AM. LEEANN likely caused by bladder retention as well as patient taking ARNI and diuretics. Continue to hold potential offensive drugs such as ARNI and diuretics Ultrasound kidneys does not show obstructive uropathy Patient did have urinary retention, 1500 mL. Farrar catheter was placed in. Farrar catheter removal and voiding trial. Check postvoid bladder scan. Blood pressure is on the high side. Avoid additional IV fluid infusion and allow kidney function to normalize back to baseline with next 2 to 3 days UA showed small amount of RBC. No protein to suggest glomera nephritis or nephrotic syndrome. Urine culture is negative. Urinary retention more than 1500 mL Probable UTI. Farrar catheter was placed in Patient is on multiple medications that could potentially affect bladder function including multiple pain medications, anticholinergics and antipsychotics Start the patient on antibiotic. Urine culture is negative. Discontinued by psych Trial of Farrar removal 05/14. Post void trial and Bladder Scan Ultimately, the patient will require additional urological investigation for this. This may include but not limited to needing to have cystoscopy, urodynamic study, [employer] examination rule out pelvic pathology. Encephalopathy, resolved. Likely metabolic encephalopathy caused by extensive polypharmacy and LEEANN. Patient is more awake today. Neck is supple. No clinical evidence to suggest meningitis or encephalitis Anemia, no evidence of acute blood loss. Hemoglobin drop over the last 24 hours could be related to IV hydration. This could be related to CKD. Requested to check iron, TIBC, iron saturation, ferritin, B12 and folate. Iron studies consistent with anemia of chronic disease. Consideration to start patient on erythropoietin injection Patient will likely require to have anemia workup to be done in the outpatient setting to be handled by PCP in collaboration with other needed outpatient providers. This may include but not limited to EGD, colonoscopy, referral to see hematology and other needed age-appropriate cancer screening. History of hypertension. Hypotension on presentation likely contributing to her LEEANN. Continue to hold ARNI Echocardiogram does not show cardiomyopathy. No strong indication to resume ARNI while patient has CKD. Her oral Cardizem had been increased from 120 up to 180 and subsequently up to 240 to keep her blood pressure under control. This morning I added Cardura 2 mg daily to achieve better blood pressure control. Continue to avoid MICHAEL, ARB, ARNI at this time or until her volume stabilizes. Chronic pain Resume preadmission home pain medication with monitor modification to avoid opiates withdrawal. DVT prophylax Heparin subcu Polypharmacy Her medication regimen will need to be adjusted slowly and gradually over the next several weeks to reduce her risk of having drug?drug interaction and/or adverse effect. This again would need to be done very gradually and slowly in the outpatient setting to prevent withdrawal symptoms Chronic, subacute medical conditions not listed above, abnormal labs and imaging, incidental findings seen on labs and or imaging. These would need to be addressed. Could be addressed later on or in the outpatient setting by PCP collaboration with other needed outpatient providers when time and condition are appropriate. Urinary Catheter Management Urinary Catheter Management Straight: Cath placed during this visit: yes, but has since been removed by the nurse Urethral indwelling: No Insertion date: 05/11/25 Insertion time: 16:50 Removal date: 05/14/25 Removal time: 08:33
--- NOTE | 2025-05-14 13:25 | SWNOTE1 ---
Addendum entered by Ilda Walton 05/14/25 13:41: Her had reviewed Dr. Meek's documentation from her ED visit on 05/10. Pt's was upset as it was documented that he only brought her here because she wanted to come and that he was not concerned about patient. Pt and also saw in the documentation that pt was a vaper, smoker, and drinker. She voiced she does not do any of those things. She was upset as this will be on her medical record. SW was unsure what could be done with this. Pt is aware that an incident report was filed in regards to her other concerns with ED visit with Dr. Meek. SW offered to reach back out to Blanca Del Rosario, Director of ED, to see if she can come back and speak with pt. Pt is in agreement. SW reached out to Blanca via email and also left a voicemail. Original Note: SW received call from pt's room and she wanted to speak with SW. SW stopped in pt's room and her was in room as well. Pt stated that her called her at 10:30 on Monday evening
[2025-05-14] MEDS: DOXAZOSIN MESYLATE 2 MG TABLET PO (13:44)
[2025-05-14] MEDS: METOPROLOL TARTRATE 5 MG/5 ML VIAL IVP (20:43)
[2025-05-14] MEDS: DOCUSATE SODIUM 100 MG CAPSULE PO (21:34)
[2025-05-14] MEDS: QUETIAPINE FUMARATE 25 MG TABLET 50 MG PO (21:34)
[2025-05-14] MEDS: PRIMIDONE 50 MG TABLET 150 MG PO (21:34)
[2025-05-14] MEDS: CETIRIZINE HCL 10 MG TABLET PO (21:34)
[2025-05-14] MEDS: DOXEPIN HCL 10 MG CAPSULE 20 MG PO (21:35)
[2025-05-15] VITALS (13 sets, daily range): BP systolic 149–204; BP diastolic 82–96; PULSE 67–89; TEMP 36.6–36.8; O2SAT 82–97
[2025-05-15] MEDS: OXYCODONE HCL/ACETAMINOPHEN 5MG/325MG 1 TAB PO (05:34)
[2025-05-15] MEDS: HEPARIN SODIUM (PORCINE) 5,000 UNIT/ML VIAL 5000 UNIT SUBQ (05:35)
[2025-05-15] MEDS: DICLOFENAC SODIUM 1% 100 GM TUBE TOPICAL ×2 (05:35→11:34)
[2025-05-15] MEDS: LEVOTHYROXINE SODIUM 75 MCG TABLET PO (05:35)
[2025-05-15 05:55] LABS: Anion Gap 11.1; Blood Urea Nitrogen 57.0 mg/dL (7.0-18.0); Calcium 8.6 mg/dL (8.5-10.1); Carbon Dioxide 24.8 mmol/L (21.0-32.0); Chloride 104 mmol/L (98-107); Estimated GFR (African America 19 (>=60 mL/min/1.73m^2); Estimated GFR (Non-African Ame 16 (>=60 mL/min/1.73m^2); Glucose 88 mg/dL (74-106); Potassium 4.9 mmol/L (3.5-5.1); Sodium 135 mmol/L (136-145)
[2025-05-15] MEDS: CALCIUM ACETATE 667 MG CAPSULE 1334 MG PO ×2 (08:04→11:33)
[2025-05-15] MEDS: CALCITRIOL 0.25 MCG CAPSULE 0.5 MCG PO (08:35)
[2025-05-15] MEDS: DILTIAZEM HCL 240 MG CAP.ER.24H PO (08:35)
[2025-05-15] MEDS: DOXAZOSIN MESYLATE 2 MG TABLET PO (08:36)
[2025-05-15] MEDS: ESCITALOPRAM 10 MG TABLET 20 MG PO (08:36)
[2025-05-15] MEDS: MULTIVITAMIN TABLET 1 TAB PO (08:37)
[2025-05-15] MEDS: FENTANYL 50 MCG/HR PATCH.TD72 100 MCG TD (08:37)
[2025-05-15] MEDS: MAGNESIUM OXIDE 400 MG TABLET PO (08:37)
--- NOTE | 2025-05-15 08:40 | CM.NOTE ---
Rounds made with Dr. Vnaegas, pt will discharge to home today. Discussed with pt f/u appointments with [facility] and PCP. Pt also has appointment scheduled to see Dr. Rae. Pt will have BMP prior to f/u with Dr. Godinez. Pt verbalizes understanding.
[2025-05-15] MEDS: METOPROLOL TARTRATE 5 MG/5 ML VIAL IVP (08:41)
[2025-05-15] MEDS: HYDRALAZINE HCL 25 MG TABLET 50 MG PO (10:35)
[2025-05-15] MEDS: FUROSEMIDE 40 MG/4 ML VIAL IVP (10:36)
--- NOTE | 2025-05-15 12:00 | CM.NOTE ---
Updated Dr. Vanegas on pt's BP.
--- NOTE | 2025-05-15 12:15 | CM.NOTE ---
CM in to speak with pt regarding BMP ordered for May 19 prior to appt with Dr. Godinez. Pt verbalizes understanding. Pt provided with order, CM faxed to lab.
[2025-05-15] MEDS: HEPARIN SODIUM (PORCINE) PF LOCK FLUSH 500 UNIT/5 ML SYRINGE IV (12:29)
--- NOTE | 2025-05-15 12:34 | PM.DS1 ---
DS: Providers Provider Date of admission: 05/11/25 04:34 Primary care physician: Yuri Godinez MD Consults: 05/12/25 09:48 Occupational Therapy Eval and Treat Routine Reason for consultation: Weakness Physical Therapy Eval and Treat Routine Reason for consultation: weakness DS: Diagnosis Discharge Diagnosis (1) Acute kidney injury: (2) Acute hyperkalemia: (3) Metabolic acidosis: (4) Constipation: (5) Urinary retention: (6) Metabolic encephalopathy: Plan As listed above, below and others that are not listed DS: Summary Hospital Course Hospital Course: Mrs. Moser is a 65-year-old female who came in with confusion, disorientation and lethargy. She was found to have the following: LEEANN/CKD. LEEANN is improving and approaching baseline. Metabolic acidosis, resolved. Hyperkalemia, resolved. Hyperphosphatemia, patient was started on PhosLo. Repeat phosphorus level is trending down. Continue PhosLo 3 times a day instead of twice a day that she was taking at home. LEEANN likely caused by bladder retention as well as patient taking ARNI and diuretics. Patient had more than 1500 mL urine. Continue to hold potential offensive drugs such as ARNI and diuretics Ultrasound kidneys does not show obstructive uropathy Patient did have urinary retention, 1500 mL. Farrar catheter was placed in. Farrar catheter removal and voiding trial. Check postvoid bladder scan. Blood pressure is on the high side. Avoid additional IV fluid infusion and allow kidney function to normalize back to baseline with next 2 to 3 days UA showed small amount of RBC. No protein to suggest glomera nephritis or nephrotic syndrome. Urine culture is negative. Farrar catheter was removed yesterday. Patient is able to void on her own. Postvoid residual is less than 50. Patient is to follow-up with her urologist Dr. Wallace. Recommend BMP next week at Dr. Godinez's office BP and diuretic meds would need to be adjusted to keep patient in euvolemic state and blood pressure systolically between 140 and 160. Urinary retention more than 1500 mL Probable UTI. Farrar catheter was placed in Patient is on multiple medications that could potentially affect bladder function including multiple pain medications, anticholinergics and antipsychotics Start the patient on antibiotic. Urine culture is negative. Discontinued antibiotic. Trial of Farrar removal 05/14. Post void trial and Bladder Scan. Patient is able to void on her own. Postvoid residual is less than 50 Encephalopathy, resolved. Likely metabolic and toxic encephalopathy caused by extensive polypharmacy and LEEANN. Patient is more awake today. Neck is supple. No clinical evidence to suggest meningitis or encephalitis Patient is back to baseline mental state Anemia, no evidence of acute blood loss. Hemoglobin drop over the last 24 hours could be related to IV hydration. This could be related to CKD. Requested to check iron, TIBC, iron saturation, ferritin, B12 and folate. Iron studies consistent with anemia of chronic disease. Consideration to start patient on erythropoietin injection, this is to be addressed by her casino investigator Dr. Wallace. Patient will likely require to have anemia workup to be done in the outpatient setting to be handled by PCP in collaboration with other needed outpatient providers. This may include but not limited to EGD, colonoscopy, referral to see hematology and other needed age-appropriate cancer screening. History of hypertension. Relative hypotension on presentation likely contributing to her LEEANN. Continue to hold ARNI Echocardiogram does not show cardiomyopathy. No strong indication to resume ARNI while patient has CKD. Her oral Cardizem had been increased from 120 up to 180 and subsequently up to 240 to keep her blood pressure under control. This morning I added Cardura 2 mg daily to achieve better blood pressure control. Continue to avoid MICHAEL, ARB, ARNI at this time or until her volume stabilizes. Patient continues to have high blood pressure systolic above 180. Cardura was increased up to 4 mg twice a day Additional titration may be needed to achieve optimal blood pressure control over the next several weeks to be handled by PCP in collaboration with nephrology. Furthermore, if her blood pressure continues to be on controlled patient may need to have investigation for secondary hypertension such as renal artery stenosis, pheochromocytoma, hyperaldosterenemia to be handled by casino investigator in the outpatient setting. Chronic pain Resume preadmission home pain medication with monitor modification to avoid opiates withdrawal. Hypothyroidism Suppressed TSH. Reduce her Synthroid dose from 125 down to 100 mcg daily. Recommend repeat TSH in 4 weeks at PCP office DVT prophylax Heparin subcu Polypharmacy, pain meds and psychiatric medication I talked to patient about this. I informed her about potential risk including drug?drug interaction and or side effect such as [employer], pulmonary and cardiovascular side effects. She understood the potential risk very well. She stated that she would not allow anyone to alter her medication but her primary care doctor Dr. Godinez. Her medication regimen will need to be adjusted slowly and gradually over the next several weeks to reduce her risk of having drug?drug interaction and/or adverse effect. I tried to simplify her regimen slightly before discharge and continue with recommendation postdischarge to continue to work with Dr. Godinez to simplify her regimen further to reduce her risk having [employer], pulmonary and cardiovascular side effects. Once again, patient is adamant about not changing any medication or dosing despite potential risk until she sees Dr. Godinez. I respect her opinion about it as long as she understands potential risk Chronic, subacute medical conditions not listed above, abnormal labs and imaging, incidental findings seen on labs and or imaging. These would need to be addressed. Could be addressed later on or in the outpatient setting by PCP collaboration with other needed outpatient providers when time and condition are appropriate. Patient has multiple complex medical issues as listed above and others that are not listed. All appear to be stable. Patient is back to baseline and ready physically and psychologically to go home. I do not have any clear or strong clinical justification to extend inpatient hospitalization. Patient however will require close and frequent monitoring as well as additional work-up, investigation and therapeutic intervention that could take place from this point on post discharge. That is to prevent relapse, decompensation, rehospitalization and other medical implications. Discharge medications as listed are not final or set in stone. Primary care doctor and other out patient providers will need to titrate and adjust medications as soon as the first post discharge visit based on clinical progression, vitals signs, volume status and other related organs function. I instructed patient to ask her primary care doctor to obtain [facility] record entirely to address abnormalities seen on labs and imaging that I have and have not addressed during this hospitalization, follow-up on pending blood work, imaging and pathology is if available and to follow-up on needed medical care in the outpatient setting. Time Spent with Patient Time attestation: Total time spent providing and/or coordinating discharge services: Exam Narrative Exam Narrative: [pt is awake and alert. oriented to place, time and person HEENT: [place] conjunctiva and NL buccal mucosa Neck: Supple, no tenderness Endocrine: No Thyromegaly. Vascular: No JVD or carotid bruit. Lymphatic: No cervical lymphadenopathy. Chest: CTA no DTP. Heart RRR, no extra sound or murmur. Abd: Soft, no tenderness, no rebound and no rigidity. Increase abd girth therefore clinically I could not exclude the possibility of intra abd mass or organomegaly. LE: No cyanosis or clubbing, no varices. Nonpitting edema. Mild tenderness in the cervical lumbar spine Neuro: A A O. Nl speech, comprehension and attention. Nl and symetrical motor and tone examination through out. Generalized weakness and fatigue. No unilateral deficit. []] Constitutional Vital Signs, click to edit/add: Last Vital Signs Temp 97.9 F 05/15/25 11:45 Pulse 89 05/15/25 12:00 Resp 16 05/15/25 11:45 BP 156/86 H 05/15/25 12:00 Pulse Ox 92 L 05/15/25 11:45 O2 Del Method Room Air 05/15/25 11:45 DS: Data Data Completed and Pending Labs on day of discharge: Labs from last 24 hours 05/15/25 05:22 Sodium 135 L Potassium 4.9 Chloride 104 Carbon Dioxide 24.8 Anion Gap 11.1 BUN 57.0 H Creatinine 2.97 H Est GFR ( Amer) 19 L Est GFR (Non-Af Amer) 16 L BUN/Creatinine Ratio 19.2 Glucose 88 Calcium 8.6 Phosphorus 4.8 H Discharge Plan Discharge Disposition: Home, Self-Care Condition: Fair Discharge Medications: New doxazosin 4 mg tablet 4 mg PO BID 60 Days Qty: 120 2RF torsemide 20 mg tablet 20 mg PO DAILY Qty: 30 2RF Continued escitalopram oxalate 20 mg tablet 20 mg PO DAILY azelastine 0.05 % drops 1 drp OPHTHALMIC (EYE) DAILY fentanyl 100 mcg/hr patch 72 hour 1 patch transdermal Q72H Rx Instructions: APPLIED 05/09/25 pramipexole 1 mg tablet 1 mg PO .QHS calcitriol 0.5 mcg capsule 0.5 mcg PO DAILY docusate sodium [Colace] 100 mg capsule 100 mg PO .QHS magnesium 250 mg tablet 250 mg PO DAILY multivitamin Tablet 1 tab PO DAILY fexofenadine [Tammie Allergy] 180 mg tablet 180 mg PO DAILY alprazolam 0.5 mg tablet 0.5 mg PO BID PRN (Reason: anxiety) levothyroxine 100 mcg tablet 100 mcg PO DAILY Linzess 290 mcg capsule 290 mcg PO .QOD primidone 50 mg tablet 150 mg PO BEDTIME oxycodone-acetaminophen 5-325 mg tablet 1 tab PO Q6H PRN (Reason: pain) Rx Instructions: 1-2 TABS ifuylwnmur-gjbfpufkhvgvb-opqj 50-325-40 mg tablet 1 tab PO BID PRN (Reason: migraine headache) Changed tizanidine [Zanaflex] 4 mg tablet 2 mg PO Q6H PRN (Reason: muscle spasticity) Qty: 0 0RF doxepin 10 mg capsule 10 mg PO BEDTIME Qty: 0 0RF diltiazem HCl 120 mg capsule,extended release 24hr 120 mg PO BID Qty: 60 2RF calcium acetate(phosphat bind) 667 mg capsule 667 mg PO AC Qty: 90 1RF quetiapine 50 mg tablet 50 mg PO HS Qty: 0 0RF Discontinued amitriptyline 150 mg tablet 300 mg PO BEDTIME sacubitril-valsartan [Entresto] 49-51 mg tablet 1 tab PO BID liothyronine 25 mcg tablet 25 mcg PO DAILY Print Language: Telugu Activity Restrictions/Additional Instructions: I may not have addressed or treated all of your medical illnesses or the abnormal blood work or imaging studies during this hospitalization. Please ask your primary care provider to obtain [facility] records entirely to follow up on all of the abnormal physical, laboratory, and imaging findings that I have not addressed. Please return back to the emergency room or seek medical attention if your symptoms worsen or return. Discharging you from [facility] does not mean that your medical care ends here and now. You may still need additional monitoring, work up, investigation, and treatment plan to be handled from this point on by out patient providers including your primary care provider and specialists. For any medication question, please contact your retail pharmacist or your primary care provider. Discharge medications as listed are not final or set in stone. Primary care doctor and other out patient providers will need to titrate and adjust medications as soon as the first post discharge visit based on clinical progression, vitals signs, volume status and other related organs function. I would recommend that you have a blood test BMP at Dr. Godinez's office in 1 week I would recommend that you continue to work with Dr Godinez to simplify your medication regimen Thank you. Launch Engineer/[employer]at[employer] Artist Instructions: BMP May 19- pt provided with lab order Forms: Portal Instructions Follow Up Appointments: Dr Rae May 20 at 1:00p Dr Godinez Apr @10:45 Dr Casimiro Lyons Office Apr @10:00
--- NOTE | 2025-05-16 14:09 | CM.DCFOLLOWU ---
1st attempt, no answer, 05/16/2025
--- NOTE | 2025-05-19 12:09 | SWNOTE1 ---
SW called and pt was at a follow up apt and they needed her ECHO results for pre-admission testing. SW faxed Echo and EKG to the physician office for continuation of care.
--- NOTE | 2025-05-19 13:51 | CM.DCFOLLOWU ---
Person spoke with:Mabel How are you feeling? Doing better How is your pain? No pain Did you understand your discharge instructions? Yes Do you have any questions about your discharge instructions? No Were you given any prescriptions at discharge? Yes Were you able to get your prescriptions filled? Yes Do you understand how to take your medications as ordered? Yes Do you have any questions about your follow up appointment and do you plan to keep your follow up appointment? No questions. She plans on keeping her follow up appts. Is there anything else that you would like to discuss? No Questions/Comments/Concerns/Other:
== END 2025-05-15 14:36 | disposition home or self-care (01) | DRG 682 ==
LOC: ER 03:10 → MS 04:36
PROVIDERS: Internal Medicine; Admitting Provider Hospitalist; Emergency Provider Emergency Medicine; PCP Family Medicine; Visit Provider Hospitalist
DX: N17.9 Acute kidney failure, unspecified (principal); G93.41 Metabolic encephalopathy; I50.32 Chronic diastolic (congestive) heart failure; E87.20 Acidosis, unspecified; I13.0 Hypertensive heart and chronic kidney disease with heart failure and stage 1 through stage 4 chronic kidney disease, or unspecified chronic kidney disease; E87.5 Hyperkalemia; S80.02XA Contusion of left knee, initial encounter; S80.01XA Contusion of right knee, initial encounter; E03.9 Hypothyroidism, unspecified; S40.012A Contusion of left shoulder, initial encounter; S40.011A Contusion of right shoulder, initial encounter; K59.00 Constipation, unspecified; W18.30XA Fall on same level, unspecified, initial encounter; Z87.440 Personal history of urinary (tract) infections; Z86.718 Personal history of other venous thrombosis and embolism; Z86.711 Personal history of pulmonary embolism; F32.A Depression, unspecified; M19.90 Unspecified osteoarthritis, unspecified site; F41.9 Anxiety disorder, unspecified; D63.1 Anemia in chronic kidney disease; Z86.73 Personal history of transient ischemic attack (TIA), and cerebral infarction without residual deficits; K21.9 Gastro-esophageal reflux disease without esophagitis; J44.9 Chronic obstructive pulmonary disease, unspecified; I25.2 Old myocardial infarction; E86.0 Dehydration; E83.39 Other disorders of phosphorus metabolism; N18.30 Chronic kidney disease, stage 3 unspecified; Z98.1 Arthrodesis status; Z90.710 Acquired absence of both cervix and uterus; Z98.84 Bariatric surgery status; R33.9 Retention of urine, unspecified; Z90.49 Acquired absence of other specified parts of digestive tract; Z96.651 Presence of right artificial knee joint; F17.290 Nicotine dependence, other tobacco product, uncomplicated; Z79.890 Hormone replacement therapy; Z79.899 Other long term (current) drug therapy; I95.9 Hypotension, unspecified; G89.29 Other chronic pain; T50.995A Adverse effect of other drugs, medicaments and biological substances, initial encounter
CPT/HCPCS: 36415; 51798; 71045; 72125; 72131; 73562; 76376; 76775; 80048; 80053; 81001; 82607; 82728; 82746; 83540; 83550; 83735; 84100; 84436; 84443; 84480; 84481; 85025; 85027; 87086; 93005; 93306; 96374; 97161; 97165; 99281; 99285; J1642; J1644; J1817; J1938; J2765

== ENCOUNTER 2025-05-20 12:46 | Outpatient (RCR) | payer MEDICARE, MEDICAID, SELFPAY ==
[2025-05-20 12:54] VITALS: BP 150/93; PULSE 88; TEMP 36.6; O2SAT 99
[2025-05-20] MEDS: HEPARIN SODIUM (PORCINE) PF LOCK FLUSH 500 UNIT/5 ML SYRINGE IV (13:09)
--- NOTE | 2025-05-20 13:44 | PC.NURSE ---
1300 here for blood draw from rt chest port. also see hematology account
[2025-05-20] MEDS: EPOETIN ALFA-EPBX 20,000 UNIT/ML VIAL 20000 UNIT SUBQ (13:51)
== END 2025-05-25 23:59 | disposition home or self-care (01) ==
LOC: HEMC 12:46
PROVIDERS: PCP Family Medicine; Visit Provider Internal Medicine Hematology & Oncology
DX: D50.9 Iron deficiency anemia, unspecified (principal); D63.1 Anemia in chronic kidney disease; K90.9 Intestinal malabsorption, unspecified; N18.32 Chronic kidney disease, stage 3b; Z98.84 Bariatric surgery status; I50.30 Unspecified diastolic (congestive) heart failure; Z79.899 Other long term (current) drug therapy; Z86.711 Personal history of pulmonary embolism; Z86.718 Personal history of other venous thrombosis and embolism; R11.2 Nausea with vomiting, unspecified; E53.8 Deficiency of other specified B group vitamins; K21.9 Gastro-esophageal reflux disease without esophagitis
CPT/HCPCS: 36591; 80053; 83930; 85025; 96372; G0463; J1642; Q5106

== ENCOUNTER 2025-05-27 13:45 | Outpatient (OUT) | payer MEDICARE, MEDICAID, SELFPAY ==
--- OUTSIDE RECORDS SUMMARY | 2025-05-19 11:00 | XMS_ITS | Encounter Summary ---
Author Organization [facility] Address [address] [place] [address] Care Team Providers Care Harvest Worker Name Role Phone Yuri Godinez MD Primary Care Provider [phone] Encounter Details DateTypeDepartmentCare Team (Latest Contact Info)Dntvyjjyjbs72/24/2025 11:00 AM ESTPre-Admission Testing [facility] Pre-Anesthesia Clinic [address] [place] [address] [place] [address] Social History Tobacco UseTypesPacks/DayYears UsedDateSmoking Tobacco: NeverSmokeless Tobacco: NeverAlcohol UseStandard Drinks/WeekCommentsNot Currently0 (1 standard drink = 0.6 oz pure alcohol)[facility] UtilitiesAnswerDate RecordedIn the past 12 months has the electric, gas, oil, or water [employer] threatened to shut off services in your [...] CommentsUnknownSex and Gender InformationValueDate RecordedSex Assigned at Tfqrfh3712/15/2022 3:22 PM EDTLegal RleTqwsqp79/29/2022 9:25 PM EDTGender Identity Unzxig8212/15/2022 3:22 PM EDTSexual OrientationHeterosexual or Straight 12/15/2022 3:22 PM EDTdocumented as of this encounter Last Filed Vital Signs Vital SignReadingTime TakenCommentsBlood Wrrntxmf947/8611 11:04 AM EST Qczkv429405/19/2025 11:04 AM APSYdpanwhmfjw69.7 ??C (98.1 ??F)05/19/2025 11:04 AM ESTRespiratory Rate--Oxygen Nitkwncroe660%05/19/2025 11:04 AM ESTInhaled Oxygen Concentration--Ioqquf24 kg (194 lb)05/19/2025 11:04 AM GIUCbbbxi462.4 cm (5') 05/19/2025 11:04 AM ESTBody Mass Index37.8911 11:04 AM ESTdocumented in this encounter H&P Notes * Peace Sanders CNP - 05/19/2025 11:00 AM EST Images from the original note were not included. Pre-Anesthesia Clinic Service Date: 05/19/25 Chief Complaint: PAC visit prior to upcoming procedure: Left shoulder total reverse arthroplasty under general anesthesia. HPI Mabel Moser is a pleasant 65 y.o. female who presents to Pre-Anesthesia Clinic today prior toupcoming left shoulder total reverse arthroplasty with Dr. Butterfield under general anesthesia on 05/28/2025. Patient has a past medical history of asthma, COPD, CHF, CAD, GERD, heart valve disease, HTN, DVT on Eliquis, lymphedema, hypothyroidism, kidney failure, obesity s/p bariatric surgery in 1999, lumbar spondylosis, and stroke. Patient reports ongoing left shoulder pain, rating pain 10/10 in severity. She currently denies anyacute illness, fever, SOB, chest pressure, palpitations, or syncope. EKG on 05/25/2025 reviewed: Normal sinus rhythm. ECHO 07/31/23: EF 60%. No regional wall motion abnormality. No significant valvular abnormalities. Right cardiac cath 11/30/22: Mild elevation of left and right filling pressures. Mild pulmonary HTN.Normal cardiac output and cardiac index. Uncontrolled systemic HTN. Findings are consistent with postcapillary and reactive pulmonary HTN and diastolic HF. Remote history of DVT, on Eliquis. Patient was last evaluated by Dr. Hidalgo on 04/28/2025. At that visit, hypertension was uncontrolled, started on diltiazem CD 120 mg daily. Cardiology clearance pending preoperative evaluation for shoulder surgery: As long as her blood pressure is under good control, she can proceed at low to intermediate cardiac risk . BP is elevated today, 168/86. Patient reports she was told by one of her doctor to stop taking Bumex a month ago; subsequently, she is concern because she has gained 20 pounds within this last month and BP remains uncontrolled. Patient states COPD is well controlled, last acute exacerbation was in 2019. Patient denies any additional cardiopulmonary history beyond what has been documented above. Patient denies any known anesthesia-related complications including malignant hyperthermia, serotonin syndrome, pseudocholinesterase deficiency, or difficult intubation. Patient also denies any knownfamily history of anesthesia complications. Preoperative labs remains outstanding, patient is to complete today after visit. Subjective Allergies[1] Medication Documentation Review Audit Reviewed by Maren Lake MA ([employer]) on 04/28/25 at 1406 Medication Order Taking? Sig Documenting Provider Last Dose Status albuterol 90 mcg/actuation inhaler [id number] Yes Inhale 2 puffs every 6 (six) hours if needed. Historical ProviderMD Active ALPRAZolam (Xanax) 0.5 mg tablet [id number] Yes Take 0.5 mg by mouth if needed in the morning and at bedtime for sleep. Historical ProviderMD Active amitriptyline (Elavil) 150 mg tablet [id number] Yes Take 300 mg by mouth at bedtime. Historical ProviderMD Active ARIPiprazole (Abilify) 2 mg tablet [id number] Take 2 mg by mouth in the morning. Patient not taking: Reported on 04/28/2025 Historical ProviderMD Active aspirin 81 mg chewable tablet [id number] Chew 81 mg 1 (one) time. Patient not taking: Reported on 04/28/2025 Historical ProviderMD Active atorvastatin (Lipitor) 40 mg tablet [id number] Patient not taking: Reported on 04/28/2025 Historical ProviderMD Active azelastine (Astelin) 137 mcg (0.1 %) nasal spray [id number] Administer 1 spray into each nostril two times daily. Use in each nostril as directed Patient not taking: Reported on 04/28/2025 Historical ProviderMD Active bumetanide (Bumex) 2 mg tablet [id number] Take 1 tablet (2 mg) by mouth in the morning and at bedtime. Take a 3rd dose at noon as needed for signs of fluid retention including worsening edema and weight gain Patient not taking: Reported on 04/28/2025 Benjamin Villavicencio MD 03/27/24 2359 gbdtewjtws-quxijsyjzbebj-vavc 50-325-40 mg tablet [id number] Take 1 tablet by mouth. Patient not taking: Reported on 04/28/2025 Historical ProviderMD Active butorphanol (Stadol) 10 mg/mL nasal spray [id number] Yes Administer 1 spray into each nostril. Historical ProviderMD Active calcitriol (Rocaltrol) 0.5 mcg capsule [id number] Yes Take 0.5 mcg by mouth in the morning. Historical ProviderMD Active calcium acetate (Phoslo) 667 mg capsule [id number] Take 667 mg by mouth in the morning and at bedtime. Patient not taking: Reported on 04/28/2025 Historical ProviderMD Active carvedilol (Coreg) 6.25 mg tablet [id number] Take 1 tablet (6.25 mg) by mouth with breakfast and withevening meal for 195 doses. Patient not taking: Reported on 04/28/2025 Dat Mix MD 03/27/24 2359 cyanocobalamin (Vitamin B-12) 1,000 mcg/mL injection [id number] Yes 1 mL Injection IM every month for90 days Historical ProviderMD Active desvenlafaxine (Pristiq) 50 mg 24 hr tablet [id number] Yes Take 100 mg by mouth in the morning. Historical ProviderMD Active doxepin (SINEquan) 10 mg capsule [id number] Yes Historical ProviderMD Active DULoxetine (Cymbalta) [address] capsule [id number] Yes Take 60 mg by mouth in the morning and at bedtime. Historical ProviderMD Active Eliquis 2.5 mg tablet [id number] Take 5 mg by mouth two times daily. Patient not taking: Reported on 04/28/2025 Historical ProviderMD Active Entresto 49-51 mg tablet [id number] Yes Take 1 tablet by mouth two times daily. Historical ProviderMD Active ergocalciferol (Vitamin D-2) 1.25 MG (96878 Units) capsule [id number] Yes 1 capsule. Historical ProviderMD Active escitalopram (Lexapro) 20 mg tablet [id number] Yes Historical ProviderMD Active fentaNYL (Duragesic) 100 mcg/hr [id number] Yes Place 1 patch on the skin infusion over 72 (seventy-two) hours. Historical ProviderMD Active fluticasone furoate-vilanteroL (Breo Ellipta) 100-25 mcg/dose inhaler [id number] Yes 1 puff 1 (one) time each day at the same time. Patient taking differently: 1 puff if needed. Historical ProviderMD Active gabapentin (Neurontin) 100 mg capsule [id number] Take 100 mg by mouth in the morning, at noon, and atbedtime. Patient not taking: Reported on 04/28/2025 Historical ProviderMD Active hydrOXYzine HCL (Atarax) 25 mg tablet [id number] Yes Historical Provider, Active hyoscyamine 0.125 mg dissolvable tablet [id number] Yes Place 0.125 mg under the tongue. Historical ProviderMD Active ipratropium-albuteroL (Duo-Neb) 0.5-2.5 mg/3 mL nebulizer solution [id number] Yes Take 3 mL by nebulization if needed in the morning, at noon, and at bedtime. Historical ProviderMD Active levothyroxine (Synthroid, Levoxyl) 100 mcg tablet [id number] Yes Take 100 mcg by mouth in the morning. Historical ProviderMD Active linaCLOtide (Linzess) 290 mcg capsule [id number] Yes Take 290 mcg by mouth before breakfast. Every other day Historical ProviderMD Active liothyronine (Cytomel) 25 mcg tablet [id number] Yes Take 25 mcg by mouth in the morning. Historical ProviderMD Active loratadine (Claritin) 10 mg tablet [id number] Yes Take 10 mg by mouth in the morning. Historical Provider, Active nystatin (Mycostatin) 100,000 unit/gram powder [id number] Yes Historical ProviderMD Active ondansetron ODT (Zofran-ODT) 4 mg disintegrating tablet [id number] Yes Historical ProviderMD Active oxyCODONE-acetaminophen (Percocet) 5-325 mg tablet [id number] Yes Take 1-2 tablets by mouth every 6 (six) hours if needed for severe pain (8-10 pain score). Historical ProviderMD Active pantoprazole (ProtoNix) 40 mg EC tablet [id number] Yes 1 (one) time each day at the same time. Historical ProviderMD Active pramipexole (Mirapex) 1 mg tablet [id number] 1 (one) time each day at the same time. Patient not taking: Reported on 04/28/2025 Historical ProviderMD Active primidone (Mysoline) 50 mg tablet [id number] Yes Take 150 mg by mouth at bedtime. Historical ProviderMD Active rosuvastatin (Crestor) 20 mg tablet [id number] Take 20 mg by mouth in the morning. Patient not taking: Reported on 04/28/2025 Historical Provider, Active sevelamer carbonate (Renvela) 800 mg tablet [id number] Take 800 mg by mouth with breakfast, with lunch, and with evening meal. Swallow tablet whole; do not crush, break, or chew. Patient not taking: Reported on 04/28/2025 Historical Provider, Active spironolactone (Aldactone) 100 mg tablet [id number] Yes Take 50 mg by mouth two times daily. Patient taking differently: Take 50 mg by mouth if needed. Historical Provider, Active tiZANidine (Zanaflex) 4 mg tablet [id number] Yes Historical Provider, Active torsemide (Demadex) 100 mg tablet [id number] Yes Take 50 mg by mouth two times daily. Historical Provider, Active Immunization History Administered Date(s) Administered Covid ([employer]) Bivalent Booster =>12 YRS 04/07/2022 Hep B, adult 08/01/2006, 10/27/2006 Influenza, High Dose Seasonal, Preservative Free 05/04/2017, 05/30/2022 Influenza, injectable, MDCK, preservative free, quadrivalent 04/03/2020, 03/24/2021 Influenza, injectable, quadrivalent, preservative free 04/03/2018 Influenza, recombinant, quadrivalent, injectable, preservative free 04/07/2022 Influenza, seasonal, injectable 03/26/2020, 05/18/2020 Moderna 12 YR UP Vaccine BiValent Booster 08/27/2020, 09/24/2020 [employer] Covid-19 Vaccine, 12&up, Fall 2022-03/31/2025 Pneumococcal Conjugate PCV 20 08/19/2022 Pneumococcal Polysaccharide PPV23 04/12/2016 Unspecified Sars-Cov-2 Vaccination 08/27/2020, 09/24/2020 Zoster, Recombinant 04/07/2022, 08/19/2022 Problem List[2] History Medical History[3] Surgical History[4] Social History Socioeconomic History Marital status: Legally Spouse name: Not on file Number of children: Not on file Years of education: Not on file Highest education level: Not on file Occupational History Not on file Tobacco Use Smoking status: Never Smokeless tobacco: Never Substance and Sexual Activity Alcohol use: Not Currently Drug use: Not Currently Sexual activity: Defer Other Topics Concern Not on file Social History Narrative Not on file Social Drivers of Health Financial Resource Strain: Low Risk (07/28/2023) Overall Financial Resource Strain (CARDIA) Difficulty of Paying Living Expenses: Not hard at all Food Insecurity: No Food Insecurity (01/22/2024) Received from [facility] Hunger Vital Sign Within the past 12 months, you worried that your food would run out before you got the money to buymore.: Never true Within the past 12 months, the food you bought just didn't last and you didn't have money to get more.: Never true Transportation Needs: No Transportation Needs (01/22/2024) Received from [facility] PRAPARE - Transportation Lack of Transportation (Medical): No Lack of Transportation (Non-Medical): No Physical Activity: Not on file Stress: Not on file Social Connections: Not on file Intimate Partner Violence: Unknown (07/28/2023) Humiliation, Afraid, Rape, and Kick questionnaire Fear of Current or Ex-Partner: No Emotionally Abused: Not on file Physically Abused: Not on file Sexually Abused: Not on file Housing Stability: Low Risk (01/22/2024) Received from [facility] Housing Stability Vital Sign Unable to Pay for Housing in the Last Year: No Number of Places Lived in the Last Year: 1 Unstable Housing in the Last Year: No Family History[5] - I have reviewed the patient's most recent Labs, Imaging and other Testing results as below: No visits with results within 30 Day(s) from this visit. Latest known visit with results is: No results displayed because visit has over 200 results. ECHO 07/31/2023 Right heart cath 11/30/2022 Hemodynamic Data: RA: 7 RV: 45/4, 1 [...] and reactive pulmonary hypertension and diastolic heartfailure. Lower extremity venous duplex 09/16/2024 No DVT in the right and left lower extremity. Soft tissue swelling and edema noted in the distal right and left lower extremity soft tissues. Carotid duplex 01/22/2024: < 50% stenosis in the right internal carotid artery. < 50% stenosis in the left internal carotid artery. Normal antegrade flow involving the right vertebral artery. Evidence of both antegrade and retrograde flow in the left vertebral artery. Review of Systems Constitutional: Positive for unexpected weight change (gained 20 this past month). Negative for chills, fatigue and fever. HENT: Positive for dental problem. Negative for sore throat and trouble swallowing. Eyes: Positive for visual disturbance (wears glasses). Respiratory: Negative. Negative for cough, chest tightness and shortness of breath. Cardiovascular: Positive for leg swelling (BLE). Negative for chest pain and palpitations. Gastrointestinal: Negative. Negative for abdominal pain. Genitourinary: Negative. Musculoskeletal: Positive for arthralgias (left shoulder), gait problem (ambulates with walker) andjoint swelling (left shoulder). Skin: Negative. Neurological: Negative for dizziness, seizures, syncope, speech difficulty, light-headedness and headaches. Psychiatric/Behavioral: Negative. Objective Vital Signs BP 168/86 Pulse 86 Temp 36.7 ??C (98.1 ??F) (Oral) Ht 1.524 m (5') Wt 88 kg (194 lb) TcL5711% BMI 37.89 kg/m?? Physical Exam Vitals reviewed. Constitutional: General: She is not in acute distress. Appearance: Normal appearance. She is obese. She is not ill-appearing. HENT: Head: Normocephalic and atraumatic. Right Ear: Decreased hearing noted. Mouth/Throat: Dentition: Abnormal dentition. Has dentures (upper). Dental caries present. Pharynx: Oropharynx is clear. Eyes: Extraocular Movements: Extraocular movements intact. Pupils: Pupils are equal, round, and reactive to light. Comments: Wears glasses Cardiovascular: Rate and Rhythm: Normal rate. Heart sounds: Normal heart sounds. Pulmonary: Effort: Pulmonary effort is normal. Breath sounds: Normal breath sounds. Abdominal: General: Bowel sounds are normal. Palpations: Abdomen is soft. Musculoskeletal: Cervical back: Neck supple. Right lower le+ Pitting Edema (painful to the touch) present. Left lower le+ Pitting Edema (Painful to the touch.) present. Skin: General: Skin is warm and dry. Neurological: General: No focal deficit present. Mental Status: She is alert and oriented to person, place, and time. Gait: Gait abnormal (ambulates with walker). Psychiatric: Mood and Affect: Mood normal. Mallampati Score: ll Assessment and Plan 65 y.o. female scheduled for left shoulder total reverse arthroplasty with Dr. Butterfield under general anesthesia on 05/28/2025 Hypertension uncontrolled today. Cardiac clearance pending BP control. Patient has +3 pitting BLE edema and reports 20 lb weight gain within the last month since stopping Bumex. Patient instructed to notify ski topper of elevated BP and 20 lb weight gain for further evaluation and management. Patient verbalized understanding. Rosa Isela MCGEE notified of plan. Peace Sanders CNP *This note was completed using a voice journeyman lineman system. Every effort was made to ensure accuracy; however, inadvertent computerized journeyman lineman errors may be present. [1] Allergies Allergen Reactions Betadine [Povidone-Iodine] Carvedilol Nausea And Vomiting Cephalexin Other Ciprofloxacin Clavulanic Acid Diarrhea Gabapentin Other Iodine Unknown Pregabalin Other Sulfamethoxazole-Trimethoprim Unknown Trimethoprim Unknown Amoxicillin-Pot Clavulanate Other, Diarrhea, Nausea And Vomiting and GI intolerance Sulfa (Sulfonamide Antibiotics) GI intolerance, Other and Rash [2] Patient Active Problem List Diagnosis Abnormal weight [...] due to vitamin B12 deficiency Pulmonary hypertension ([facility]) Other fatigue Osteoarthritis of knee Morbid (severe) obesity due to excess calories ([facility]) Left atrial enlargement Lumbosacral radiculopathy Lumbosacral spondylosis without myelopathy Intractable migraine without status migrainosus Migraine Rheumatic tricuspid valve regurgitation Vitamin D deficiency Tympanic membrane perforation, right Transient ischemic attack Thoracic neuritis Tear of right rotator cuff Swallowing problem Sunburn of second degree Status post tympanoplasty Sprain of shoulder Seizure disorder ([facility]) Polyneuropathy associated with critical illness Polyneuropathy Arthritis Class 3 obesity ([facility]) Lumbar paraspinal muscle spasm Lateral femoral cutaneous neuropathy, left Internal derangement of right shoulder History of total right knee replacement Hemiparesis, left ([facility]) Hemiparesis due to old stroke ([facility]) Difficulty walking Depressive disorder Constipation Abnormal blood chemistry 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 ([facility]) Pre-operative cardiovascular examination Acute on chronic systolic CHF (congestive heart failure) ([facility]) History of stroke Hyperkalemia Hypomagnesemia Metabolic acidosis LEEANN (acute kidney injury) Peripheral vascular disease Acute heart failure ([facility]) Polypharmacy Cerebral artery occlusion with cerebral infarction ([facility]) Chronic congestive heart failure ([facility]) Fall at home, initial encounter Irritable bowel syndrome Restless legs Other displaced dens fracture, sequela Cervical stenosis of spine Compression fracture of C2 vertebra with delayed healing History of Clostridium difficile colitis History of DVT of lower extremity Lymphedema MDD (major depressive disorder), recurrent episode, moderate ([facility]) Mild neurocognitive disorder Osteoporosis Vascular insufficiency Poor venous access S/P cervical spinal fusion Simple goiter Syncope Vertebral artery dissection Abdominal wall skin ulcer Hyperparathyroidism Primary localized osteoarthrosis of shoulder region Tear of left rotator cuff S/P reverse total shoulder arthroplasty, left Biceps tendinosis of left shoulder Chronic kidney disease, stage 3b ([facility]) Fall [3] Past Medical History: Diagnosis Date Anxiety Arthritis Asthma CHF (congestive heart failure) ([facility]) COPD (chronic obstructive pulmonary disease) ([facility]) Coronary artery disease Depression Gastroenteritis GERD (gastroesophageal reflux disease) Heart valve disease Hypertension Hypothyroidism Kidney failure Lumbar spondylolysis Stroke ([facility]) [4] Past Surgical History: Procedure Laterality Date APPENDECTOMY CARDIAC CATHETERIZATION CHOLECYSTECTOMY GASTRIC BYPASS HERNIA REPAIR HYSTERECTOMY JOINT REPLACEMENT TOTAL KNEE ARTHROPLASTY Right [5] Family History Problem Relation Name Age of Onset Stroke Mother Heart failure Father documented in this encounter Plan of Treatment DateTypeDepartmentCare Team (Latest Contact Info)Tjzcjbjmcbk19/12/2025 3:45 PM ESTOffice Visit [facility] [address] [place] [address] Mark Hidalgo MD [address] [facility] [address] [facility] [place] [phone] 07/16/2025 8:30 AM ESTHospital Encounter [facility] Main Operating Room [address] [place] [phone] Rojas Butterfield MD [address] [facility] [place] [phone] 07/16/2025 8:30 AM EST - 07/16/2025 11:30 AM ESTSurgery [facility] Main Operating Room [address] [place] [phone] Rojas Butterfield MD [address] [facility] [place] [phone] REVERSE TOTAL SHOULDER ARTHROPLASTY [[id number] (CPT??)]07/29/2025 11:00 AM ESTOffice Visit [facility] [address] [place] [address] [place] [phone] Rojas Butterfield MD [address] [facility] [phone] 891- NamePriorityAssociated DiagnosesDate/TimeARTHROPLASTY, SHOULDER, TOTAL S/P reverse total shoulder arthroplasty, left Biceps tendinosis of left shoulder 07/16/2025 8:30 AM ESTTENODESIS, BICEPS S/P reverse total shoulder arthroplasty, left Biceps tendinosis of left shoulder 07/16/2025 8:30 AM ESTdocumented as of this encounter Visit Diagnoses Not on filedocumented in this encounter Care Teams Team MemberRelationshipSpecialtyStart DateEnd Date Yuri Godinez MD [address] [facility] [place] [phone] PCP - General10/06/22documented as of this encounter
--- OUTSIDE RECORDS SUMMARY | 2025-05-19 12:30 | XMS_ITS | Encounter Summary ---
Author Organization [facility] Address [address] [place] [address] Care Team Providers Care Paralegal Internship Name Role Phone Yuri Godinez MD Primary Care Provider [phone] Encounter Details DateTypeDepartmentCare Team (Latest Contact Info)Bxemtjenxut34/24/2025 12:30 PM ESTLab [facility] Medical Pav[facility] Draw Station [address] [place] [phone] S/P reverse total shoulder arthroplasty, left; Biceps tendinosis of left shoulder Social History Tobacco UseTypesPacks/DayYears UsedDateSmoking Tobacco: NeverSmokeless Tobacco: NeverAlcohol UseStandard Drinks/WeekCommentsNot Currently0 (1 standard drink = 0.6 oz pure alcohol)[facility] UtilitiesAnswerDate RecordedIn the past 12 months has the electric, gas, oil, or water [employer] threatened to shut off services in your [...] CommentsUnknownSex and Gender InformationValueDate RecordedSex Assigned at Hrmefy0612/15/2022 3:22 PM EDTLegal HyvMbmtmc47/29/2022 9:25 PM EDTGender Identity Nzuiim9712/15/2022 3:22 PM EDTSexual OrientationHeterosexual or Vgmqljqz10/22/2023 3:22 PM EDTdocumented as of this encounter Plan of Treatment DateTypeDepartmentCare Team (Latest Contact Info)Trkzejkhdxz84/12/2025 3:45 PM ESTOffice Visit [facility] [place] [address] [place] [address] Mark Hidalgo MD [address] [facility] [place] [address] 07/16/2025 8:30 AM ESTHospital Encounter [facility] Main Operating Room [address] [place] [phone] Rojas Butterfield MD [address] [place] [phone] 07/16/2025 8:30 AM EST - 07/16/2025 11:30 AM ESTSurgery [facility] Main Operating Room [address] [place] [phone] Rojas Butterfield MD [address] [place] [address] REVERSE TOTAL SHOULDER ARTHROPLASTY [01857 (CPT??)]07/29/2025 11:00 AM ESTOffice Visit [facility] [address] [place] [address] [place] [phone] Rojas Butterfield MD [address] [place] [address] NamePriorityAssociated DiagnosesDate/TimeARTHROPLASTY, SHOULDER, TOTAL S/P reverse total shoulder arthroplasty, left Biceps tendinosis of left shoulder 07/16/2025 8:30 AM ESTTENODESIS, BICEPS S/P reverse total shoulder arthroplasty, left Biceps tendinosis of left shoulder 07/16/2025 8:30 AM ESTdocumented as of this encounter Procedures Procedure NamePriorityDate/TimeAssociated DiagnosisCommentsCBC WITH AUTO WJBIIYPSEWJLPneeugh51/24/2025 12:22 PM EST S/P reverse total shoulder arthroplasty, left Biceps tendinosis of left shoulder MRSA/MSSA DNA RJNUCShmwvjz49/24/2025 12:22 PM EST S/P reverse total shoulder arthroplasty, left Biceps tendinosis of left shoulder BIQUXcrcaky18/24/2025 12:22 PM EST S/P reverse total shoulder arthroplasty, left Biceps tendinosis of left shoulder PROTIME-FPBQekorvy59/24/2025 12:22 PM EST S/P reverse total shoulder arthroplasty, left Biceps tendinosis of left shoulder CBC AND CHTMFWJVLZYNAeoznok07/24/2025 12:22 PM EST S/P reverse total shoulder arthroplasty, left Biceps tendinosis of left shoulder BASIC METABOLIC EQGJDRktfvqx85/24/2025 12:22 PM EST S/P reverse total shoulder arthroplasty, left Biceps tendinosis of left shoulder documented in this encounter Results * (ABNORMAL) CBC auto differential (05/19/2025 12:22 PM EST)ComponentValueRef RangeTest MethodAnalysis TimePerformed AtPathologist SignatureAuto WBC6.414.00 - 10.60 10*3/uL05/19/2025 1:19 PM [facility] ([facility])RBC2.97(L)3.80 - 5.00 10*6/uL05/19/2025 1:19 PM [facility] (H?REL)Hemoglobin9.2(L) 12.0 - 15.0 g/dL05/19/2025 1:19 PM [facility] (H?REL)Delgfgaovs12.7 (L)36.0 - 45.0 %05/19/2025 1:19 PM [facility] (H?REL)NMK372.0(H) 82.0 - 98.0 fL05/19/2025 1:19 PM [facility] (H?REL)MCH31.027.0 - 33.0 pg05/19/2025 1:19 PM [facility] (H?REL)MCHC31.0(L)32.0 - 35.0 g/dL05/19/2025 1:19 PM [facility] (H?REL)RDW13.911.5 - 15.0 % 05/19/2025 1:19 PM [facility] (H?REL)Neutrophils %69.040.0 - 72.0 % 05/19/2025 1:19 PM [facility] (H?REL)Lymphocytes %22.220.0 - 45.0 % 05/19/2025 1:19 PM [facility] ([facility])Monocytes %5.85.0 - 12.0 % 05/19/2025 1:19 PM [facility] ([facility])Eosinophils %1.70.0 - 6.0 % 05/19/2025 1:19 PM [facility] ([facility])Basophils %0.50.0 - 1.0 % 05/19/2025 1:19 PM [facility] ([facility])Neutrophils Absolute4.431.60 - 7.60 10*3/uL05/19/2025 1:19 PM [facility] ([facility])Lymphocytes Absolute1.421.20 - 4.00 10*3/uL05/19/2025 1:19 PM [facility] ([facility])Monocytes Absolute0.370.10 - 1.00 10*3/uL05/19/2025 1:19 PM [facility] ([facility])Eosinophils Absolute0.110.00 - 0.50 10*3/uL05/19/2025 1:19 PM [facility] ([facility])Basophils Absolute0.030.00 - 0.20 10*3/uL 05/19/2025 1:19 PM [facility] ([facility])Qhlwzymcr965377 - 400 10*3/uL 05/19/2025 1:19 PM [facility] ([facility])nRBC %0.00 %05/19/2025 1:19 PM [facility] ([facility])Immature Granulocytes %0.80.0 - 1.0 %05/19/2025 1:19 PM [facility] ([facility])Immature Granulocytes Absolute0.050.00 - 0.20 10*3/uL05/19/2025 1:19 PM [facility] ([facility])Specimen (Source) Anatomical Location / LateralityCollection Method / VolumeCollection Time Received TimeBloodVenous blood specimen / UnknownVenipuncture / Unknown 05/19/2025 12:22 PM EST05/19/2025 12:54 PM EST Narrative Authorizing ProviderResult TypeResult StatusDavid Scout ASCENCIOLAB BLOOD ORDERABLES Final ResultPerforming OrganizationAddressCity/State/ZIP CodePhone Number [facility] ([facility]) [address] [place], [place] [phone] * (ABNORMAL) MRSA/MSSA DNA Nasal (05/19/2025 12:22 PM EST)ComponentValueRef RangeTest MethodAnalysis TimePerformed AtPathologist SignatureMSSA DNAPositive (A)Amrtjgsy93/25/2025 3:07 PM [facility] ([facility])MRSA DNAPositive(A) Szxdjjor59/25/2025 3:07 PM [facility] ([facility])Specimen (Source) Anatomical Location / LateralityCollection Method / VolumeCollection Time Received TimeSwabNasal structure / UnknownNon-blood Collection / Unknown 05/19/2025 12:22 PM EST05/19/2025 12:42 PM EST Narrative [facility] ([facility]) - 05/20/2025 3:07 PM EST Testing methodology is an automated qualitative in vitro diagnostic test for the direct detection and differentiation of Staphylococcus aureus (SA) DNA and methicillin- resistant Staphylococcus aureus (MRSA) DNA from nasal swabs in patients at risk for nasal colonization. The test utilizes real-time polymerase chain reaction (PCR) for the amplification of MRSA/SA DNA and fluorogenic target-specific hybridization probes for the detection of the amplified DNA. A negative result does not preclude nasal colonization. Authorizing ProviderResult TypeResult StatusDavid Scout [facility] [employer]CRO[employer]OLOGY - GENERAL ORDERABLESFinal ResultPerforming OrganizationAddressCity/State/ZIP Code Phone Number [facility] ([facility]) [address] [place], [place] [phone] * (ABNORMAL) Basic metabolic panel (05/19/2025 12:22 PM EST)ComponentValueRef RangeTest MethodAnalysis TimePerformed AtPathologist KupbohmhvGifkmy293(L)136 - 145 mmol/L107/19/2024 1:25 PM [facility] ([facility])Potassium4.73.5 - 5.1 mmol/L107/19/2024 1:25 PM [facility] ([facility])Lwdawxuh13253 - 107 mmol/L107/19/2024 1:25 PM [facility] ([facility])HF73083 - 31 mmol/L 05/19/2025 1:25 PM [facility] ([facility])BUN45(H)7 - 25 mg/dL05/19/2025 1:25 PM [facility] ([facility])Creatinine2.62(H)0.60 - 1.20 mg/dL 05/19/2025 1:25 PM [facility] ([facility])Eblvxct0309 - 100 mg/dL 05/19/2025 1:25 PM [facility] ([facility])Calcium8.5(L)8.6 - 10.3 mg/dL 05/19/2025 1:25 PM [facility] ([facility])Anion Uhu996 - 20 mmol/L 05/19/2025 1:25 PM [facility] ([facility])eGFR19.9(L)>60.0 mL/min/1.73m* 1:25 PM [facility] ([facility])Comment:[facility]???s estimated glomerular filtration rate (eGFR) will [...] not disproportionately affect any one group of individuals.BUN/Creatinine Ratio17. 1:25 PM [facility] ([facility])Specimen (Source)Anatomical Location / LateralityCollection Method / VolumeCollection TimeReceived TimeBloodVenous blood specimen / Unknown Venipuncture / Eeaerut5205/19/2025 12:22 PM EST05/19/2025 12:50 PM EST Narrative Authorizing ProviderResult TypeResult StatusDavid Scout QUINTEROS BLOOD ORDERABLES Final ResultPerforming OrganizationAddressCity/State/ZIP CodePhone Number [facility] ([facility]) [address] [place] [address] * Protime-INR (05/19/2025 12:22 PM EST)ComponentValueRef RangeTest Method Analysis TimePerformed AtPathologist ThffrysrrEzpyxuw19.312.3 - 14.8 Seconds 05/19/2025 1:05 PM [facility] ([facility])INR0.910.90 - 1.10107/19/2024 1:05 PM [facility] ([facility])Comment: [facility] RECOMMENDED INR FOR WARFARIN THERAPY CONDITION ?INR PROPHYLAXIS OF VENOUS THROMBOSIS ? 2-3 (HIGH-RISK SURGERY) TREATMENT OF VENOUS THROMBOSIS ? 2-3 TREATMENT OF PULMONARY EMBOLISM ?2-3 PREVENTION OF SYSTEMIC EMBOLISM: ? 2-3 ?ACUTE MYOCARDIAL INFARCTION ?TISSUE HEART VALVES ?VALVULAR HEART DISEASE ?ATRIAL FIBRILLATION ?RECURRENT SYSTEMIC EMBOLISM MECHANICAL HEART VALVE ? 2.5-3.5 FROM: ORAL ANTICOAGULANTS. ??MECHANISM OF ACTION, CLINICAL EFFECTIVENESS, AND OPTIMAL THERAPEUTIC RANGE. ??CHEST 1995;108:231S-246S. Specimen (Source)Anatomical Location / LateralityCollection Method / Volume Collection TimeReceived TimeBloodVenous blood specimen / UnknownVenipuncture / Illvqlp3205/19/2025 12:22 PM EST05/19/2025 12:43 PM EST Narrative Authorizing ProviderResult TypeResult StatusDavid Scout QUINTEROS BLOOD ORDERABLES Final ResultPerforming OrganizationAddressCity/State/ZIP CodePhone Number [facility] ([facility]) [address] [place] [address] * (ABNORMAL) APTT (05/19/2025 12:22 PM EST)ComponentValueRef RangeTest Method Analysis TimePerformed AtPathologist CgudoxyjcaQHW21.6(L)25.0 - 35.0 Seconds 05/19/2025 1:11 PM [facility] ([facility])Comment:Clinical significance of the APTT is questionable in the presence of heparin.Specimen (Source) Anatomical Location / LateralityCollection Method / VolumeCollection Time Received TimeBloodVenous blood specimen / UnknownVenipuncture / Unknown 05/19/2025 12:22 PM EST05/19/2025 12:43 PM EST Narrative Authorizing ProviderResult TypeResult StatusDavid Scout QUINTEROS BLOOD ORDERABLES Final ResultPerforming OrganizationAddressCity/State/ZIP CodePhone Number [facility] ([facility]) [address] [place] [address] documented in this encounter Visit Diagnoses Diagnosis S/P reverse total shoulder arthroplasty, left Biceps tendinosis of left shoulder S/P reverse total shoulder arthroplasty, left Biceps tendinosis of 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
--- OUTSIDE RECORDS SUMMARY | 2025-05-20 05:37 | XMS_ITS | Continuity of Care Document ---
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 Name Role Phone Deborah Vanegas MD Attending Provider Yuri Godinez MD Primary Care Provider [phone] Raeann Kirkpatrick MD Attending Provider Care Teams Patient Care Team Team Status: Active Member Role/Relationship Status Dates Yuri Godinez MD Primary Care Provider Active Visit Care Team Team Status: Inactive Member Role/Relationship Status Dates Deborah Vanegas MD Attending Provider Active Sta rt: May 12, 2025 End: May 12, 2025 Patient Care Team Team Status: Inactive Member Role/Relationship Status Dates Yuri Godinez MD Primary Care Provider Active Start: May 20, 2025 End: May 20breonna Kirkpatrick MDAttending ProviderActiveStart: May 20, 2025 End: May 20, 2025 Chief Complaint and Reason for Visit Chief Complaint Admit Date [facility] f/u May 20 9:42am Reason for Visit Admit Date CHF (congestive heart failure) May 20, 2025 9:42am Chronic kidney disease, stage 3b Novembe r 2024 9:42am Fluid overload May 20, 2025 9:42am Hyperkalemia May 20, 2025 9:42am Hyperphosphatemia May 20, 2025 9:42am Secondary hyperparathyroidism April 272024 9:42am Vitamin D deficiency May 20, 2025 9:42am Anemia May 20, 2025 9:42am Hypertension May 20, 2025 9:42am Hyponatremia May 20, 2025 9:42am Allergies, Adverse Reactions, Alerts Allergen Type Severity Reaction Last Updated Verified Status amoxicillin Allergy Unknown Diarrhea April 3:18pm Yes Active clavulanic acid Allergy Unknown Diarrhea May 19, 2025 3:18pm Yes Active povidone-iodine Allergy Unknown Rash May 19, 2025 3:18pm Yes Active Sulfa (Sulfonamide Antibiotics) Allergy Unknown Rash May 19, 2025 3:18pm Yes Active sulfamethoxazole Allergy Unknown Unknown Reaction May 19, 2025 3:18pm Yes Active trimethoprim Allergy Unknown Unknown Reaction May 19, 2025 3:18pm Yes Active Social History Smoking Status Status Start Date End Date Date of Observa tion Never smoked tobacco (finding) March 26, 2024 11:50am Observation Status Observation Response Date of Response Legal Sex [facility] (finding) [facility] [place] [facility] Family History Relationship Condition Age at Onset Recorded Date/T gama father Heart disease Unknown HypertensionUnknownDiabetes mellitusUnknownDeceasedUnknownfamily memberDeceased UnknownmotherHistory of strokeUnknownMalignant neoplasmUnknownDeceasedUnknown Diabetes mellitusUnknownFamily history of mental disorderUnknownHypertension UnknownHeart diseaseUnknown Problems Active Problems Problem Diagnosis/Recorded Date Onset Date Status C omments Chronic kidney disease, stag e 3b March 25, 2024 2:14pm Unknown Active Secondary hyperparathyroidismSeptember 2023 2:14pmUnknownActiveCKD (chronic kidney disease) stage 3, GFR 30-59 ml/minMarch 2018 6:59pmUnknown ActiveCHF (congestive heart failure)March 25, 2024 2:13pmUnknownActive AnemiaMarch 2018 7:12pmUnknownActiveHyponatremiaMarch 2018 6:58pm UnknownActivePolypharmacyMarch 2018 10:28amUnknownActiveS/P cervical spinal fusionOctober 2023 10:49amUnknownActiveHypertensionMarch 2018 7:13pmUnknownActiveVitamin D deficiencySeptember 2023 2:14pmUnknownActive Fluid overloadOctober 2023 11:12amUnknownActiveHyperkalemiaSeptember 2023 2:13pmUnknownActiveHyperphosphatemiaNovember 2024 10:26amUnknown ActiveInactive/Resolved Problems Problem Diagnosis/Recorded Date Onset Date Status C omments LEEANN (acute kidney injury) June 30, 2023 10:42am Unknow n Resolved Acute heart failureJanuary 2023 9:49pmUnknownResolvedChronic CHF (congestive heart failure)August 31, 2018 7:18pmUnknownResolvedProblem List clean-up per request of Phys. EHR CmteHypertensive chronic kidney disease with stage 1 through stage 4 chronic kidney disease, or unspecified chronic kidney diseaseMary [facility] 2018 7:18pmUnknownResolvedProblem List clean-up per request of Phys. EHR CmteAnemia in CKD (chronic kidney disease)August 31, 2018 7:18pm UnknownResolvedProblem List clean-up per request of Phys. EHR CmteGeneralized weaknessMar 2018 7:13pmUnknownResolved Medications Medication Status Dose Units Route Directions Qty Days Refills S tart Date Stop Date End Date Reason(s) Instructions Adherence Sevelamer Carbonate (Renvela ) 800 mg tablet Discontinued 800 MG PO Three times daily 90 1July 2023 6:44pmJuly 2023 8:56ammust administer with a meal/food Sevelamer Carbonate (Renvela) 800 mg pxcxqiCsmminvkudiu491WYUQKsnev times daily 903July 2023 8:55amOctober 2023 11:10ammust administer with a meal/foodCalcitriol 0.5 mcg capsuleDiscontinued0.1RHBLVCrgba653Jjwsrz 2024 8:05amSeptember 2024 7:47amadminister after dialysis on dialysis days Calcitriol 0.5 mcg capsuleDiscontinued0.5EQYWAXhonq736Okybscrua 2024 7:46amOctober 2024 3:16pmCalcitriol 0.5 mcg capsuleActive0.3JXWHXTlilc999 March 28, 2025 3:15pmComplies with drug therapyAmitriptyline 100 mg Tablet Xszumqfdspga296AOHIKmsjpRhvxj 2018 12:00amMarch 2018 6:59am Fluconazole 100 mg UkjsdeRfgyxdrxrpdb632BRGCKitpzYopcd 2018 12:00amMarch 2018 6:59amFentanyl 50 mcg/hr Patch 72 NlzsCuhvjqahdxrv8GGLAHEQGNLYYCCD T47ZMzvhu 2018 12:00amMay 2022 6:54pmPrimidone 50 mg Tablet Byytijidjboc966XJJCSyqwv dailyMary [facility] Hospital 2018 12:00amMarch 2018 6:59am Bumetanide 2 mg EpvcpvKotqcuhgifkp8WLBFQeqtePofad 2018 12:00amMay 2022 6:46pmOndansetron Hcl (Zofran) 4 mg FlwkidLitjgr6HHYPhgjoz 6 to 8 hours as needed for Nausea And VomitingMary [facility] 2018 12:00amComplies with drug therapy Sodium Chloride 1 gram CqvcehGlncbutyuuzp8033NZNS8 to 4 times daily as needed for Electrolyte ReplenishmentMary [facility] 2018 12:00amMarch 2018 7:01am Oxycodone-Acetaminophen (Percocet) 5-325 mg TabletActive1 - 0LAEOAY6K as needed for PainMar 2018 12:00amComplies with drug therapyLevothyroxine (Synthroid) 88 mcg ZjgbejRmuehdtuzhcx93QPZZQNfsmyJzhms 2018 12:00amMay 2022 8:37pmAlprazolam (Xanax) 0.25 mg TabletDiscontinued0.5MGPOTwice daily as needed for AnxietyMar 2018 12:00amOctober 2023 11:01amMetoclopramide Hcl (Reglan) 5 mg JexogjZwqkmmoocwkj4PDLQPzqofBvazr 2018 12:00amJanuary 2023 12:26amFerrous Sulfate 325 mg (65 mg iron) XxrvcvQufpsjwzxkkt072PFSX DailyMary [facility] Hospital 2018 12:00amJanuary 2023 12:30amBupropion Hcl (Wellbutrin Xl) 300 mg Tablet Extended Release 24 YiUvsoocfhboop934VSOWKrhst morningMary [facility] Hospital 2018 12:00amJanuary 2023 12:27amMetoprolol Tartrate 25 mg Tablet Llbllqvqlbrm32UZHMSybaw dailyMary [facility] 2018 12:00am[facility] 2023 11:10am Lp-Uuuhfzr-Lyd-Iron Fm-Fa-Vitk (Multi For Her) 18 mg iron-600 mcg-80 mcg Tablet Xerdookzgrqq3VZNHSSjnwkLifse 2018 12:00amJanuary 2023 12:26am Fluticasone Furoate-Vilanterol (Breo Ellipta) 100-25 mcg/dose Blister With NrjfeeKyxreuuacwzf8SFEBZYIHUIFEYVwaqbErygr 2018 12:00amJanuary 2023 12:25amPotassium Chloride 10 mEq Capsule, Extended KqdvqhiRpllubiwabzf98ZTZMW DailyMary [facility] Hospital 2018 12:00uary 2023 12:30amPantoprazole (Protonix) 20 mg Tablet,Delayed Release (Dr/Ec)Odxclrphtyhe76QRLBPlljo dailyMary [facility] 2018 12:00uary 2023 10:41amLevofloxacin 750 mg YetevhYkfjorpfkudm908GEZY DailyMary [facility] 2018 12:00am[facility] 2018 6:59amSpironolactone 50 mg Tablet Dxqwojwtszlu005WVUKZkhxeRborz 2018 12:00uary 2023 12:31am Tizanidine 4 mg VuqatsrCqxvuxhntfdx5HNOBVyweq times daily as needed for Muscle SpasticityMary [facility] 2018 12:00am[facility] 20[facility] 11:10amUrea (Ure-Na) 15 gram Powder In JcxigrWzskfhobqrrg59EVIMXeehi555Uwwkl 2018 11:00pmJanuary 2023 12:30amButorphanol 10 mg/mL spray,non-sqpbwqfTrmapjbamioi1YSCSOMXIWOBEQBL Daily as needed for CONGESTIONNm2022 11:00pmJanuary 2023 12:28am Tttaufdwfz-Kbljoyoqevbny-Odfz 50-325-40 mg tkfyupcVxdgpdajoefe4HCGYYOe Directed as needed for Migraine HeadacheMay 2022 11:00pmJanuary 2023 12:27am Amitriptyline 150 mg jjjlolCyuhcyddffbk912LAWXKvzijvxFit 2022 11:00pmApril 2024 1:58pmDicyclomine 20 mg CofldfOlpmvlxuvidr15SAGVFu Directed as needed for Abdominal PainMay 2022 11:00pmJanuary 2023 12:30amBumetanide 1 mg auezpcUwihvgkuvydf2NPNQFesyy as needed for EdemaMay 2022 11:00pmJanuary 2023 12:49pmMAY TAKE UP TO 6 MG DAILY PRNAlbuterol Sulfate 90 mcg/actuation Hfa Aerosol KrprcpeGyhgiqxxcyib9MTQDMKGYABIJSNJ8J as needed for Shortness Of BreathMay 2022 11:00pmJanuary 2023 12:25amCalcium Acetate(Phosphat Bind) 667 mg ftvwqilQgoqqksigovm941CHSBZgyoe dailyMay 2022 11:00pmJuly 2024 10:10amWITH MEALSAripiprazole 2 mg isosufLahfewtqenjo5TEBJLpyenMtm 2022 11:00pmApril 2024 1:49pmDesvenlafaxine Succinate 50 mg tablet extended release 24 eeTtzwlsztnfnj00SLNHVnzdrChu 2022 11:00pmJanuary 2023 12:30amFentanyl 100 mcg/hr patch 72 zafgDkjwso9BCNROVPJOBWRCPSW43DXgn 2022 11:00pmComplies with drug therapyEscitalopram Oxalate 20 mg tablet Zcyuauydmhik23OIQWKuqhmZrx 2022 11:00pmJanuary 2023 12:27amDuloxetine 60 mg capsule,delayed release(DR/EC)Lnecdglpkuoy723RXSXLvfmbNjk 2022 11:00pmOctober 2023 11:05amHydralazine 50 mg WrnqjnVctkevzmcoqe43CEZQWzejy times dailyMay 2022 11:00pmJanuary 2023 12:22amIpratropium-Albuterol 0.5 mg-3 mg(2.5 mg base)/3 mL Solution For OlncpkilmyfvUfwnpxmwbodj0NTLPDIIHYEBO Q6H as needed for Shortness Of BreathMay 2022 11:00pmJanuary 2023 12:26amLiothyronine 25 mcg qnsweaPydhxnbqplbr95ALBZMFbcgsAli 2022 11:00pm June 30, 2023 12:25amLevothyroxine 100 mcg tgjertHsfxcq213ULVCIJlnnwTuk 2022 11:00pmComplies with drug therapyLinaclotide (Linzess) 290 mcg capsule Ysyufwnpeuhi531DOOYXMgqvs 48 hoursMay 2022 11:00pmApril 2024 1:58pm Sacubitril-Valsartan (Entresto) 49-51 mg zcprltYvxuzizpalwu1SAAVDGufac dailyMay 2022 11:00pmJanuary 2023 11:34pmAmitriptyline 150 mg tablet Kucdismlmsay872DXOWUdnwu dailyApril 2024 1:48pmJuly 2024 10:14am Linaclotide (Linzess) 290 mcg swvdlfdPegpotkhgqyy115ETHATBbhqdIdydo 2024 1:55pmJuly 2024 10:14amAmitriptyline 150 mg shastaBaukszsbttvg583KOQUMlwry at bedtimeJuly 2024 10:09amNovember 2024 9:50amLinaclotide (Linzess) 290 mcg hkfuwkaQdxujg084DIEOVYhces as neededJuly 2024 10:12amComplies with drug therapyLoratadine (Claritin) 10 mg UqmsdqUzvuud69WHXMKoaji as needed for Allergy SymptomsJanuary 2023 12:00amComplies with drug therapySacubitril- Valsartan (Entresto) 97-103 mg bqmvonVzlevkrsrxcb3UAIADVisvl dailyJanuary 2023 12:00amOctober 2023 11:10amOn Hold: Resume when kidney function has returned to baseline per nephrologyPrimidone 50 mg NerolhBkudnuidmrpj805PGTG BedtimeJanuary 2023 12:00amOctober 2023 11:11amOxycodone-Acetaminophen (Percocet) 5-325 mg aujoemKmhapgmagbkr1HKSWP5 times daily as needed for Pain June 29, 2023 12:00amJanuary 2023 10:41amSevelamer Carbonate (Renvela) 800 mg RxxirrRabsvotxwtcb890UAISGhcqf times dailyJanuary 2023 12:00amJuly 2023 6:45pmmust administer with a meal/foodGabapentin 100 mg Tablet Sdgdhkjoyhaz060LXUJKipzd times dailyJanuary 2023 12:00amOctober 2023 11:05amPantoprazole (Protonix) 40 mg Tablet,Delayed Release (Dr/Ec)Discontinued 40MGPOTwice dailyJanuary 2023 12:00amOctober 2023 11:10am Desvenlafaxine Succinate 100 mg tablet extended release 24 ctLuryqhjvjorp260TAGV DailyJanuary 2023 12:00amJuly 2024 10:11amButorphanol 10 mg/mL spray,non-vtfaqabTqkfln6JEKESCNGLQRDRZFNggko as needed for Migraine Headache June 30, 2023 12:00amComplies with drug therapyLiothyronine 25 mcg Tablet Msdzkialikmc64ENFDYIrlssIpiency 2023 12:00amOctober 2023 11:09am Pramipexole (Mirapex) 1 mg PiaunnEjbahkwrltsj7EJVGUsrurXiqymcn 2023 12:00am January 14, 2025 10:13amFerrous Sulfate 324 mg (65 mg iron) Tablet,Delayed Release (Dr/Ec)Phudmmsfqnko301MJIQHzajz229Wawxlse 2023 12:00amOctober 2023 11:10amLiothyronine (Cytomel) 25 mcg AknyonVbvanmgttsfk21ABNYJCZWEE@885270 300January 2023 12:00amNovember 2024 9:51amBumetanide 1 mg tablet Obfctfvpgzbo9FKPORecbz qlvwx412Lcvnjnv 2023 1:00pmJanuary 2023 12:50pm MAY TAKE UP TO 6 MG DAILY PRNBumetanide 1 mg hukxikFvsxzrpezwbj9WISYYfvut daily 600January 2023 1:00pmOctober 2023 11:11amTake twice dailyPrimidone 50 mg tppkfuRwknwh413TWGIZxstmklLvciibg 2023 11:08amComplies with drug therapy Albuterol Sulfate 90 mcg/actuation aerosol powdr breath qvlzfcvtlLtsauv7FKV INHALATIONEvery 6 hours as neededSept2023 11:00pmComplies with drug therapyAlprazolam 0.5 mg tabletDiscontinued0.5MGPOTwice dailySept2023 11:00pmJuly 2024 10:14amFluticasone Furoate-Vilanterol (Breo Ellipta) 100-25 mcg/dose blister with enchocZvmqtkpppnxw6MRTZYNAHZDXSGBkzwvPjyuuwebb 30th, 2024 11:00pmJuly 2024 10:14amBumetanide 1 mg mkgehsUwahgjrsjsgp7CSNS Three times daily as neededOct2023 11:03amApril 2024 1:58pm Apixaban (Eliquis) 5 mg pdecnnYqpiqrfucqgr4ENWNEltsb dailySept2023 11:00pmJuly 2024 10:10amHyoscyamine Sulfate 0.125 mg tabletDiscontinued 0.125MGPODaily as neededpt2023 11:00pmApril 2024 1:55pm Ipratropium-Albuterol 0.5 mg-3 mg(2.5 mg base)/3 mL solution for nebulization Mjynji7QBYKFVAREURRdjkmn 6 to 8 hours as neededSept2023 11:00pm Complies with drug therapyRosuvastatin 20 mg agxcumGttxuymizyjp96EYMUWgimn March 25, 2024 11:00pmApril 2024 1:57pmBumetanide 1 mg tablet Ueertmzqdkta3MDYEWducy dailyApr2024 1:50pmApril 2024 2:17pm Alprazolam 0.5 mg tabletActive0.5MGPODaily at bedtimeJuly 2024 10:09am Complies with drug therapyFluticasone Furoate-Vilanterol (Breo Ellipta) 100-25 mcg/dose blister with myyjyjXkawpo6WEOBFMMIDQQHFLpywt as neededly 2024 10:11amComplies with drug therapySevelamer Hcl 800 mg zdxgctInjenpfemzcv049EERG Three times daily as neededAugust 2024 11:00pmAugust 2024 2:05pmmust administer with a meal/foodSevelamer Hcl 800 mg ijizohYvythrjpuqsq804KEDWJajbl times zossu395UsnaxlFebruary 03, 2025 2:03pmNov2024 10:22ammust administer with a meal/foodTorsemide 20 mg jpmqaqLawzlwqgrfkw18RYWJFcvptVbwaqvzx 25th, 2025 12:00amNove2024 10:08amDoxazosin 4 mg xjigvcDtjmzn5EHQZAdceg daily May 20, 2025 12:00amComplies with drug therapyDiltiazem Hcl 120 mg capsule,extended release 93gnHbtaqn068QGDMVrgpf [facility]Critical [facility]20[facility] 12:00am Complies with drug therapyCalcium Acetate(Phosphat Bind) 667 mg mgbuiqrCtdoqk209 MGPODa2024 12:00amComplies with drug therapyTorsemide 20 mg inqtdpSeqyfeguuzea82MMBYEazlq dailyCritical Access Hospital2024 10:07amNove2024 10:09amHydralazine 50 mg pctjtbXmnlst15AAHWVsbvg times vnsfn739Fkcemtag2024 12:00amComplies with drug therapyTorsemide 40 mg iwfsihFlyayl39ZHUR Twice orznp898Mzfystlg2024 10:08amComplies with drug therapyAspirin (Adult Aspirin Regimen) 81 mg tablet,delayed release (DR/EC)Bafdvjdqthov86OFLO DailyApril 2024 11:00pmJuly 2024 10:10amAzelastine 0.05 % drops Buwictucheih0XQGPVJCK-CLMMIaeun dailyApr2024 11:00pmJuly 2024 10:14amCyanocobalamin (Vitamin B-12) 1,000 mcg/mL jdaSsfpto174CPLVJLJRVwepuv monthApr2024 11:00pmComplies with drug therapyHydralazine 25 mg tablet Wrnmuzdmqsdh32LDZVMkqo times dailyApril 2024 11:00pmJuly 2024 10:12am Doxepin 10 mg fcvralfAdtqiluuhfgk58EGLYFyhyyJxibp 2024 11:00pmJuly 2024 10:11amPantoprazole 40 mg tablet,delayed release (DR/EC)Bkdsqztotvwz89CRZN DailyApril 2024 11:00pmJuly 2024 10:13amTizanidine 4 mg capsule Mldtggybuwvr9SUFORbucs daily as neededApr2024 11:00pmNovember 2024 9:52amCholecalciferol (Vitamin D3) 1,250 mcg (50,000 unit) qqrjsgyRvkdtm2563BSE POevery weekApr2024 11:00pmComplies with drug therapySacubitril- Valsartan (Entresto) 49-51 mg jghblmQfwaxxmxectr3KHFPGCdrlf dailyApr2024 11:00pmNov2024 9:52amTorsemide 100 mg wtpmrvVeqxcfrfusbc63BAPUGsedf uhhha052Tcdmd 2024 11:00pmJuly 2024 10:14amSpironolactone 50 mg aprtvcXnacztbtwxca44BRBQCeltu uwgvp639Mcbyh 2024 11:00pmJuly 2024 10:14amCalcitriol 0.5 mcg capsuleDiscontinued0.6VTYCFRwhtp514Uwkzk 2024 11:00pmAugust 2024 8:05amadminister after dialysis on dialysis days Azelastine 0.05 % losduFtxatv9HJASLCEE-FLQBSquqlBkrx 2024 10:10amComplies with drug therapyTizanidine 4 mg taolpdvXcfpax5HMSDCuesh daily as neededMay 20, 2025 9:51amComplies with drug therapyFerrous Sulfate (Ferosul) 325 mg (65 mg iron) pmyshrHkiwut451ERGAKzdwjIetw 2024 11:00pmComplies with drug therapyVitamin E (Dl, Acetate) 180 mg (400 unit) vksncjoXziwbp220FZTXClydiWgwh 2024 11:00pmComplies with drug therapy Procedures Procedure Date Performed Status Urine Culture May 12, 2025 completed Relevant Diagnostic Tests and/or Laboratory Data Microbiology Results Procedure Source Result Collection Date/Time Result Date/Time Result Comment Performing Site Urine Culture Urine, Catheterized No Growth 2 Days May 12, 2025 12:10pm May 14, 2025 10:23am [facility] [id number] [address] [place] [id number] Vital Signs Vital Reading Result Reference Range Collection Date/Time Height 62 [in_i] May 20, 2025 9:76fpFrbdiy72.45 kgMay 20, 2025 9:44amHeart Rate81 /yst26-762GpzllmguMay 20, 2025 9:44amRespiratory rate16 /vsi10-47FhrtazlrMay 20, 2025 9:44amOxygen saturation by Pulse idehctjv80 %95-100May 20, 2025 9:44amBP Mdkteywx185 mm[Hg]100-140May 20, 2025 9:54amBP Dlkmwkrqt80 mm[Hg]60-100May 20, 2025 9:54amBMI (Body Mass Index)35.6 kg/g5YzkgnvobMay 20, 2025 9:44am Advance Directives Advance Directive Response Recorded Date/ Time Advance Directives No February 2:20pm Insurance Providers Guarantor Mabel Moser Address [address] [place] [id number] Info.Home Phone: Payer Group Member ID Coverage Type Subscriber Relationship to Subscriber Effective Date Expiration Date Aron CAMPUZANO [id number] H Butscher Id: [id number] 06/27 [facility] [address] Home Phone: Medicaid Id: [id number] A Butscher Id: [id number] [address] [place] [phone] Home Phone: Email: [email or web address] Encounters Encounter Location(s) Arrival/Admit Date Discharge/Departure Date Discharge/Departure Disposition Provider(s) Departed Referred -[facility] May 12, 2025 12:10pm May 12, 2025 12:11pm Discharged to home care or self care (routine discharge) Deborah Vanegas MD Departed Physician/ Provider Office Visit -[facility] Nephrology [place] May 20, 2025 9:42am May 20, 2025 10:29am Discharged to home care or self care (routine discharge) Raeann Kirkpatrick MD Recent Diagnosis Onset Date Admit Date CHF (congestive heart failure) Unknown N ov2024 9:42am Chronic kidney disease, stage 3b Unknown May 20, 2025 9:42am Fluid overload Unknown May 20, 025 9:42am Hyperkalemia Unknown May 20, 025 9:42am Hyperphosphatemia Unknown May 20, 2025 9:42am Secondary hyperparathyroidism Unknown No vember 2024 9:42am Vitamin D deficiency Unknown May 202024 9:42am Anemia Unknown May 20, 025 9:42am Hypertension Unknown May 20, 025 9:42am Hyponatremia Unknown May 20, 025 9:42am Assessments Diagnosis Onset Date Resolution Status Admit Date CHF (congestive heart failure) acuteMay 20, 2025 9:42amChronic kidney disease, stage 3bacuteMay 20, 2025 9:42amFluid overloadacuteMay 20, 2025 9:42amHyperkalemiaacute May 20, 2025 9:42amHyperphosphatemiaacuteMay 20, 2025 9:42am Secondary hyperparathyroidismacuteMay 20, 2025 9:42amVitamin D deficiency acuteMay 20, 2025 9:42amAnemiachronicMay 20, 2025 9:42am HypertensionchronicMay 20, 2025 9:42amHyponatremiachronicMay 20, 2025 9:42am Plan of Treatment [facility] 10:28amShe has chronic kidney disease stage 3/4 from arterionephrosclerosis and intermittent LEEANN from CHF.Serum creatinine fluctuate based on diuretics.UA has been benign. 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 Instructed the patient to avoid NSAIDs completely Follow-up in 3 months. Lab as below prior to next visit Patient is taking vitamin D supplement. Will check 25-hydroxy vitamin D next visit This has resolved with low potassium diet. off Entresto that was stopped during last hospitalziation. Will continue to monitor potassium level Patient has a history of liver cirrhosis from alpha-1 antitrypsin deficiency. Hyponatremia improved with stopping hydrochlorothiazide. Continue d fluid restriction of 1200 cc daily CHF is clinically compensated . she has legs Edema and high BP. Will increase torsemide to 40 mg PO BID and add hydralazine 50 mg PO TID. Continue low-salt diet and fluid restriction. Follows with hematology clinic in B12/ANGELIA injections as needed. Continue calcitriol 0.5 p.o. daily I will check PTH next visit. She has significant legs edema. Will increase torsemide to 40 mg PO BID Advised the patient to weigh herself every day and to call my office if she gains more than 5 pounds. Advised the patient to follow low-salt diet . She also follows with lymphedema clinic and currently on pump to help reducing the interstitial edema Elevated. Will add hydralazine 50 mg PO TID. Will increase tosemide to 40 PO BID. Will continue doxazosin and Dilt. Advised to follow low Na diet Continue Ca acetate with meals. Will check Phos next visit Future Tests Future scheduled test information is unavailable Pending Tests Test Name Ordered Date Scheduled Date Renal Function Panel May 20, 2025 10:10am 3 Months Future Visits Future appointment information is unavailable Future Procedures Procedure Name Ordered Date Scheduled Date Hemogram CBC Without Diff May 20, 2025 10 :10am 3 Months Iron and TIBC Profile May 20, 2025 10:10a m 3 Months Ferritin May 20, 2025 10:10am 3 Mo nths Magnesium May 20, 2025 10:10am 3 Mo nths Protein Creat Ratio Ur Random May 20 10:10am 3 Months Parathyroid Hormone Intact May 20, 2025 1 0:10am 3 Months Uric Acid May 20, 2025 10:10am 3 Mo nths Vit. B12/Folate Profile May 20, 2025 10:1 0am 3 Months Vitamin D 25 Hydroxy Total May 20, 2025 1 0:10am 3 Months Future Medications Future medication information is unavailable Patient Instructions Patient instructions are unavailable
--- OUTSIDE RECORDS SUMMARY | 2025-05-27 13:54 | XMS_ITS | Encounter Summary ---
Author Organization [facility] Address [address] [place] [address] Care Team Providers Care Physician Office Specialist Name Role Phone Yuri Godinez MD Primary Care Provider [phone] Encounter Details DateTypeDepartmentCare Team (Latest Contact Info)Knlfnglatsb14/25/2025Telephone [facility] [place] [phone] Rosa Isela Martinez RN Social History Tobacco UseTypesPacks/DayYears UsedDateSmoking Tobacco: NeverSmokeless Tobacco: NeverAlcohol UseStandard Drinks/WeekCommentsNot Currently0 (1 standard drink = 0.6 oz pure alcohol)[facility] UtilitiesAnswerDate RecordedIn the past 12 months [...] CommentsUnknownSex and Gender InformationValueDate RecordedSex Assigned at Vpkful9012/15/2022 3:22 PM EDTLegal JdhDopoaz13/29/2022 9:25 PM EDTGender Identity Lgldov8312/15/2022 3:22 PM EDTSexual OrientationHeterosexual or Iufsubzy48/22/2023 3:22 PM EDTdocumented as of this encounter Plan of Treatment DateTypeDepartmentCare Team (Latest Contact Info)Lmtqexkwgfp10/12/2025 3:45 PM ESTOffice [facility] [address] [place] [address] Mark Hidalgo MD [address] [facility] [phone] 07/16/2025 8:30 AM ESTHospital Encounter [facility] Main Operating Room [address] [place] [phone] Rojas Butterfield MD [address] [place] [address] 07/16/2025 8:30 AM EST - 07/16/2025 11:30 AM ESTSurgery [facility] Main Operating Room [address] [place] [address] Rojas Butterfield MD [address] [place] [address] REVERSE TOTAL SHOULDER ARTHROPLASTY [28549 (CPT??)]07/29/2025 11:00 AM ESTOffice Visit [facility] [address] [place] [address] [place] [address] Rojas Butterfield MD [address] [place] [address] NamePriorityAssociated DiagnosesDate/TimeARTHROPLASTY, SHOULDER, TOTAL S/P reverse total shoulder arthroplasty, left Biceps tendinosis of left shoulder 07/16/2025 8:30 AM ESTTENODESIS, BICEPS S/P reverse total shoulder arthroplasty, left Biceps tendinosis of left shoulder 07/16/2025 8:30 AM ESTdocumented as of this encounter Visit Diagnoses Not on filedocumented in this encounter Care Teams Team MemberRelationshipSpecialtyStart DateEnd Date Yuri Godinez MD [address] [facility] [place] [address] PCP - General10/06/22documented as of this encounter
--- OUTSIDE RECORDS SUMMARY | 2025-05-27 13:54 | XMS_ITS | Clinical Summary ---
Author Organization [facility] Address [address] [place] [address] Care Team Providers Care Sales Correspondence Clerk Name Role Phone Yuri Godinez MD Primary Care Provider [phone] Allergies Active AllergyReactionsCriticalityNoted DateCommentsAmoxicillin-Pot Clavulanate Unknown,GI intolerance,Diarrhea,Nausea And PvtswtpvBmi58/19/2014Gabapentin 10/10/20223162TwlvumSzntqve89/04/2023ovidone XyqbxvEbspdek25/04/2023 Sulfamethoxazole-XynwwiffbaskYyapecd60/04/2023 Medications MedicationSigDispense QuantityRefillsLast FilledStart DateEnd DateStatus Fluticasone-Salmeterol [...] ADULTS PO) multivitaminActive Lancets (OneTouch Delica Plus Qxemyg27W) misc OneTouch Delica Plus Lancet 33 gaugeActive B Complex Vitamins (VITAMIN B COMPLEX PO) Daily.Active albuterol HFA (Ventolin HFA) 90 mcg/act inhaler if needed.Active amitriptyline (Elavil) 150 MG tablet amitriptyline 150 mg tabletActive ukoqlzshrl-dglvqeowmudfo-rivrsxjn-codeine (Fioricet W/Codeine) 59-586-04-30 MG capsule every 6 (six) hours.Active calcium acetate (Phoslo) 667 MG capsule calcium acetate(phosphate binders) 667 mg ptwxoyo2909/29/2022ctive calcium carbonate (Os-Gabriel) 1250 (500 Ca) MG [...] MG tablet metoprolol tartrate 50 mg tabletActive ohzbgdxh-itiyataaz-ijeIPZZJkmfka (Maxitrol) 0.1 % ophthalmic suspension ypdrznqw-kngryqaaq-slenssst 3.5 mg/mL-10,000 unit/mL-0.1% eye dropsActive ondansetron ODT (Zofran-ODT) 4 MG disintegrating tablet ondansetron 4 mg disintegrating tabletActive Entresto 97-103 MG tablet Take 1 tablet by mouth in the morning and 1 tablet in the evening.Active tiZANidine (Zanaflex) 4 MG tablet tizanidine 4 mg tabletActive Active Problems ProblemNoted DateDiagnosed DateAbnormal blood avhrcrcwx81/04/2023nxiety 11/27/20221537Jjxqohdnge29/04/2023erebrovascular accident (CVA)11/27/2022hronic back pain11/27/2022hronic obstructive pulmonary zmigckj5711/27/2022onstipation 11/27/20221227Icahxxendp15/04/2023ifficulty lvgcdeb1511/27/2022Functional neurologic llhnjukpp63/04/2023astroesophageal reflux clwdjqs4711/27/2022Hemiparesis due to old gvbaac8911/27/2022Hemiparesis, left11/27/2022History of total right knee vwvrznahcss79/04/2281Tqdoubetvltymb32/04/8041Cmqxfvue67/04/2023Internal derangement of right ojrcrghh80/04/2023Lumbar paraspinal muscle spasm11/27/2022 Lumbar nojtfxgk35/04/2023Obesity (BMI 30-39.9)11/27/2022Neurogenic pain 11/27/2022Osteoarthritis of spine with radiculopathy, lumbar thsmqy3511/27/2022 Pain, lower vjxwrevyp57/04/2023Lateral femoral cutaneous neuropathy, left 11/27/2022lantar wart, left foot11/27/20228789Oiwawssdqhqapx79/04/2023 Polyneuropathy associated with critical zgdtdji3311/27/2022Seizure disorder 11/27/2022Spondylosis of lumbosacral htlobu7211/27/2022Unilateral primary osteoarthritis, right knee11/27/2022 Immunizations ImmunizationAdministration DatesNext DueInfluenza, injectable, quadrivalent, preservative free04/03/2018Pneumococcal Polysaccharide TMLC1832 Family History Medical HistoryRelationNameCommentsDiabetesFatherHeart diseaseFatherHeart failureFatherHypertensionFatherStrokeFatherAnxiety disorderMotherCancerMother DepressionMotherDiabetesMotherHeart diseaseMotherHyperlipidemiaMother HypertensionMotherLung diseaseMotherRelationNameStatusCommentsFatherDeceased MotherAlive Social History Tobacco UseTypesPacks/DayYears UsedDateSmoking Tobacco: Never Assessed CommentsUnknownSex and Gender InformationValueDate RecordedSex Assigned at Not on fileLegal BzeSrcbty13/15/2023 7:05 PM EDTGender IdentityNot on fileSexual OrientationNot on file Last Filed Vital Signs Vital SignReadingTime TakenCommentsBlood Piwkyvxq246/7001/ 12:00 PM EST Pulse--Temperature--Respiratory Rate--Oxygen Saturation--Inhaled Oxygen Concentration--Tzljsp20.2 kg (201 lb)12/10/2019 12:00 PM AHNSrxagj408.6 cm (5' 4 )12/10/2019 12:00 PM EDTBody Mass Index34. 12:00 PM EDT Plan of Treatment Not on file Insurance Care Teams Team MemberRelationshipSpecialtyStart Date Yuri Godinez MD PCP - GeneralFamily Medicine11/28/22
--- OUTSIDE RECORDS SUMMARY | 2025-05-27 13:54 | XMS_ITS | Clinical Summary ---
Author Organization [facility] Address [address] [place] [address] Care Team Providers Care Qual Research Manager Name Role Phone Yuri Godinez MD Primary Care Provider [phone] Allergies Active AllergyReactionsCriticalityNoted DateCommentsAmoxicillin-Pot Clavulanate Other,Diarrhea,Nausea And Vomiting,GI gozgvtbezssPkr90/19/2014Povidone-Iodine 10/10/2022arvedilolNausea And Ndcbdkvm83/27/1819PxaobvgyshHdrzm83/19/2014 Wouzcuzseqsvt47/17/2023lavulanic LcgeVwhnrwsh86/22/2025GabapentinOther 10/10/20225584BfbaayEtwgjgb27/04/9332LveiwuruopXvavo30/17/2023Sulfa (Sulfonamide Antibiotics)GI intolerance,Other,QpwhZbe1006/13/2014Sulfamethoxazole-Trimethoprim Ylaglbp1311/27/20225785SsbxaszztxbxRutptuc08/22/2025 Medications MedicationSigDispense QuantityRefillsLast FilledStart DateEnd DateStatus albuterol [...] mg capsule Take 667 mg by mouth two times daily.09/29/2022ctive DULoxetine (Cymbalta) [address] capsule Take [...] spray Administer 1 spray into each nostril every 6 (six) hours if needed.Active gabapentin (Neurontin) 100 mg capsule Take 100 mg by mouth in the morning, at noon, and at bedtime.Active rosuvastatin (Crestor) 20 mg tablet Take 20 mg by mouth in the morning.Active hyoscyamine 0.[address] 0.125 mg under the tongue every 4 (four) hours if needed.Active carvedilol (Coreg) 6.25 mg tablet Indications:Acute on [...] tablet 05/05/2024ctive doxepin (SINEquan) 10 mg capsule 10 mg at bedtime.07/18/2024tive escitalopram (Lexapro) 20 mg tablet 07/31/2024tive hydrOXYzine HCL (Atarax) 25 mg tablet 04/05/2024ctive nystatin (Mycostatin) 100,000 unit/gram powder 05/21/2024ctive ondansetron ODT (Zofran-ODT) 4 mg disintegrating tablet Take 4 mg by mouth 1 (one) time.05/17/2024ctive spironolactone (Aldactone) 100 mg tablet Take 50 mg by mouth two times daily.07/31/2024tive tiZANidine (Zanaflex) 4 mg tablet 07/19/2024tive iwxobumyfm-htbzolodadmxc-mdpd 50-325-40 mg tablet Take 1 tablet by mouth every 6 (six) hours if needed.08/14/2024tive cyanocobalamin (Vitamin B-12) 1,000 mcg/mL injection 1 mL Injection IM every month for 90 days11/27/2023ctive ergocalciferol (Vitamin D-2) 1.25 MG (84680 Units) capsule 50,000 Units 1 (one) time per week.Active pantoprazole (ProtoNix) 40 mg EC tablet 1 [...] total shoulder arthroplasty, left04/08/2025iceps tendinosis of left bldluyha75/14/2025Primary localized osteoarthrosis of shoulder qvafij0009/23/2024Tear of left rotator cuff09/23/2024bdominal wall skin ulcer09/06/20246400Nxsteteqgyvzbvzuvdp56/14/2025ervical stenosis of spine03/27/2024 History of Clostridium difficile cfbiack1203/27/20244335Ijgsxuuxoq54/02/2024Mild neurocognitive jxyegwab32/02/5205Btwaqjxotjrt43/02/2024Vascular insufficiency 03/27/2024oor venous hxhnrh2903/27/2024Simple tollwz2103/27/2024S/P cervical spinal obrosp2703/12/2024 Overview (03/27/2024): C1-2 MDD (major depressive disorder), recurrent episode, /02/2024 Compression fracture of C2 vertebra with delayed lhftqci4201/22/2024Syncope 01/22/2024Vertebral artery isgvlahvib33/29/2024hronic congestive heart failure 09/30/2023Fall at home, initial cilvzgloh56/06/2024Irritable bowel syndrome 09/30/2023estless legs09/30/2023Other displaced dens fracture, sequela 09/30/2023cute heart jjxhedb29/21//0498Gcjwbfqgvuwi92/21/2024 08/16/2023eripheral vascular ymazvbz2407/30/2023KI (acute kidney injury) 07/29/2023cute on chronic systolic CHF (congestive heart failure)07/28/2023 History of uxllyx6707/28/20230826Fyjlzutlhgmj72/02/5252Zxmkcdfqbdrgmq23/02/2024 Metabolic /02/2024re-operative cardiovascular jzejfcyokxf27/30/2023 Assessment & Plan (02/22/2023 4:10 PM EDT): RCRI- 0??points Class I Risk 3.9??% 30-day risk of , VA, or cardiac arrest From a cardiology perspective pt may proceed with Total knee arthroplasty with Dr Singleton, she is a low to moderate risk for a low to mod risk orthopedic surgery. She does not take any Aspirin, or anticoagulation. Please monitor hemodynamics carefully and prevent any major fluid shifts. Polyneuropathy associated with critical sggihxk2111/27/2022olyneuropathy 11/27/20224405Gwuwtwjxu19/04/2023lass 3 hdrxvzc4811/27/2022Lumbar paraspinal muscle spasm11/27/2022Lateral femoral cutaneous neuropathy, left11/27/2022Internal derangement of right /04/2023History of total right knee replacement 11/27/2022Hemiparesis, left11/27/2022Hemiparesis due to old zdziik3411/27/2022 Difficulty bjdwvoc8811/27/2022epressive yaycyssr18/04/3302Vcphanscdsqt17/04/2023 Abnormal blood mgbevngfq53/04/2023Full thickness rotator cuff tear08/31/2021Tear of right rotator cuff07/20/2021cute jzkwkycuf88/19/2285Smqnnog48/19/2021nxiety 01/11/2021Mitral valve pdzwmcfyfygvd15/19/2021ulmonic valve regurgitation 01/11/2021ortic valve ucrwqntgoksoj04/19/2021 Assessment & Plan (10/28/2022 3:44 PM EDT): Continue to monitor with echo Closed fracture of trochanter of femur01/11/2021lostridium difficile colitis 01/11/2021iffuse thyroid 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 gyiezjwiztnydr46/19/2021ehydration 01/11/2021OVID-19001/11/2021dema of lower zergmwaxe87/19/2021Orthopnea 01/11/2021ndogenous zdqvmfy0401/11/20213872Tfbkfxnudp62/19/2021Gouty arthropathy 01/11/2021Gastroesophageal reflux fsutmjr3001/11/2021Hip pain01/11/2021 Hyperparathyroidism due to renal mhsuqirjomiku61/19/1103Ibcuspkhregc37/19/2021 Ftzpziqginwh79/19/3078Sqfcgypyjrpo59/19/2021Impingement syndrome of shoulder zdulxm7601/11/20214981Drmccdoy89/19/2021ulmonary kgyxbdotumcx72/19/2021 Assessment & Plan (02/22/2023 4:14 PM EDT): Remains stable without worsening symptoms Osteoarthritis of knee01/11/2021eft atrial ocglgzuhvbn05/19/2021heumatic tricuspid valve krqhttoyifcnw48/19/2021Vitamin D wvbrdokwzb30/19/2021Thoracic vuqfizuu18/19/2021wallowing ltsepbs9101/11/2021unburn of second nbgobk1101/11/2021 Sprain of iahpxxoc88/19/2021Flaccid hemiplegia of right dominant side as late effect of cerebral wlqnlhjsdi73/19/2021tatus post qykytbnqicxrq62/10/2020 Cortical age-related cataract of left eye01/13/2019Bilateral hearing loss 07/31/2018Tympanic membrane perforation, right07/31/2018Arthritis of right knee 08/11/2017Other specified anxiety ymjmqrlvc09/07/2017Chronic obstructive pulmonary fajxnhs1103/02/2017Morbid (severe) obesity due to excess calories 02/17/2017Other rrdsvzc8601/13/2017Fluid /19/2017ACC/AHA stage C heart failure with preserved ejection bavacbij44/19/2017 Assessment & Plan (02/22/2023 4:13 PM EDT): [...] was 1.23/ 38 Intractable migraine without status luntmptpbvv34/24/2017 Assessment & Plan (10/28/2022 3:46 PM EDT): Headaches today and to be evaluated in ED- worst H/A I have ever had. Displacement of lumbar intervertebral disc without mxsehmyixu08/20/2017 Wnswaswwtzdt26/20/2017Low back pain08/15/2016Lumbosacral kgxlegtprgxad25/20/2017 Lumbosacral spondylosis without vxakpicson49/20/2017Chronic kidney disease 07/21/2016Coronary ynrrwsnlzammfbnh45/02/2016 Assessment & Plan (02/22/2023 4:14 PM EDT): Coronary artery disease is stable Continue GDMT continue risk factor modifications- heart healthy diet, regular exercise as tolerated and continue all medications. Assessment & Plan (10/28/2022 3:45 PM EDT): Coronary artery disease is stable Continue GDMT Abnormal weight loss03/18/2016H/O gastric txsffi6003/18/2016Anemia due to vitamin B12 fudqrpsrdw33/23/2016Benign essential fwdckzqjcgox20/04/2014 Assessment & Plan (10/28/2022 3:45 PM EDT): Hypertension is uncontrolled with c/o worst headache ever- recommended pt to be evaluated in ED Edema01/27/20143745Ixvrhek02/04/5032Ejmjrkrsukla22/04/5017Ebjlpiovlqafsv34/04/2014 Zuxpruxj33/04/2014Transient ischemic puulfx1801/27/2014Seizure ftiwvecq46/04/2014 History of DVT of lower hghatezyg36/01/2013Cerebral artery occlusion with cerebral /01/2012 Encounters DateTypeDepartmentCare JznzBsotjtlvzkz23/01/2025Telephone [facility] [address] [facility] [address] Maren Lake MA 05/20/2025Telephone [facility] [address] [place] [address] [place] [address] Rosa Isela Martinez RN 05/19/2025 12:30 PM ESTLab [facility] [address] [place] [address] [place] [address] S/P reverse total shoulder arthroplasty, left; Biceps tendinosis of left decyqvsc74/24/2025 11:00 AM ESTPre-Admission Testing [facility] Pre-Anesthesia Clinic [address] [place] [address] [place] [address] 05/19/2025Telephone [facility] [address] [facility] [place] [address] Maren Lake MA 05/19/20254297Orxokf99/03/2025 1:15 PM ESTOffice Visit [facility] [address] [facility] [place] [address] Mark Hidalgo MD Preop cardiovascular exam (Primary Dx); Chronic diastolic congestive heart failure (CMS/HCC); Primary hypertension; Pulmonary hypertension (CMS/HCC); Lymphedema; History of DVT of lower /14/2025 11:10 AM EDTFollow-Up [facility] [place] [address] Rojas Butterfield MD Rotator cuff arthropathy of left shoulder (Primary Dx); Glenohumeral reteoolxx89/14/2025Orders Only [facility] [address] [place] [address] Rosa Isela Martinez RN S/P reverse total shoulder arthroplasty, left (Primary Dx); Biceps tendinosis of left shoulderfrom Last 3 Months Immunizations ImmunizationAdministration DatesNext DueCovid (Pfizer) Bivalent Booster =>12 YRS 04/07/2022Hep B, adult10/27/2006,08/01/2006Influenza, High Dose Seasonal, Preservative Free05/30/2022,05/04/2017Influenza, injectable, MDCK, preservative free, fhrkxeteyioa99/29/2021,04/03/2020Influenza, injectable, quadrivalent, preservative free04/03/2018Influenza, recombinant, quadrivalent, injectable, preservative free04/07/2022Influenza, seasonal, falffaaief06/23/2020,03/26/2020 Pneumococcal Conjugate PCV 3Pneumococcal Polysaccharide PPV23 04/12/2016Unspecified Sars-Cov-2 Kdptzhsfarp05/01/2021,08/27/2020Zoster, Oqancpwevcw25/24/2023,04/07/2022 Family History Medical HistoryRelationNameCommentsHeart failureFatherStrokeMotherRelationName StatusCommentsBrotherAliveFatherDeceasedMotherDeceasedSisterDeceased Social History Tobacco UseTypesPacks/DayYears UsedDateSmoking Tobacco: NeverSmokeless Tobacco: Never Tobacco Cessation:Counseling Given: Not Answered Alcohol UseStandard Drinks/WeekCommentsNot Currently0 (1 standard drink = 0.6 oz pure alcohol)[facility] UtilitiesAnswerDate RecordedIn the past 12 months has the [employer], gas, oil, or water [employer] threatened to shut off services in your [...] CommentsUnknownSex and Gender InformationValueDate RecordedSex Assigned at Rircyy8712/15/2022 3:22 PM EDTLegal XaiWwgpkj65/29/2022 9:25 PM EDTGender Identity Vigrxv7812/15/2022 3:22 PM EDTSexual OrientationHeterosexual or Nnshsudr26/22/2023 3:22 PM EDT Last Filed Vital Signs Vital SignReadingTime TakenCommentsBlood Xjpvkbra331/8611/ 11:04 AM EST Lmkwu546905/19/2025 11:04 AM DWBMdqdghpsqes90.7 ??C (98.1 ??F)05/19/2025 11:04 AM ESTRespiratory Rklw281508/03/2023 10:55 AM ESTOxygen Xfbamidrlj429%05/19/2025 11:04 AM ESTInhaled Oxygen Concentration--Eaezlk29 kg (194 lb)05/19/2025 11:04 AM DCCNwpghd548.4 cm (5')05/19/2025 11:04 AM ESTBody Mass Index37.8905/19/2025 11:04 AM EST Plan of Treatment DateTypeDepartmentCare Team (Latest Contact Info)Tdbncqhoqbd99/12/2025 3:45 PM ESTOffice Visit [facility] [place] [address] [place] [address] Mark Hidalgo MD [address] [facility] [place] [address] [facility] [place] [phone] 07/16/2025 8:30 AM ESTHospital Encounter [facility] Main Operating Room [address] [address] Rojas Butterfield MD [address] [place] [address] 07/16/2025 8:30 AM EST - 07/16/2025 11:[address] [facility] Main Operating Room [address] [place] [phone] Rojas Butterfield MD [address] [place] [address] REVERSE TOTAL SHOULDER ARTHROPLASTY [75075 (CPT??)]07/29/2025 11:00 AM ESTOffice Visit [facility] [address] [place] [address] [place] [phone] Rojas Butterfield MD [address] [place] [address] NamePriorityAssociated DiagnosesDate/TimeARTHROPLASTY, SHOULDER, TOTAL S/P reverse total shoulder arthroplasty, left Biceps tendinosis of left shoulder 07/16/2025 8:30 AM ESTTENODESIS, BICEPS S/P reverse total shoulder arthroplasty, left Biceps tendinosis of left shoulder 07/16/2025 8:30 AM ESTHealth MaintenanceDue DateLast DoneCommentsCT Colonography 2909Ipqlwbfbcnp1962Colorectal Cancer Cfuwqcxdw1962FIT-DNA 1962FIT1962FOBT1962Medicare Annual Wellness (AWV)1962 Uqiehzgybpmnj1962Depression Ddiofvllq38/31/1974Pap Smear1983Adult Sbhxlkn3602/24/1984Cervical Cancer Svshtkgha10/31/1992HPV/Tdapzb3702/24/1992 Kfhtbqxfp96/31/2002COVID-19 Vaccine ( season)51, 04/07/2022, 09/24/2020, Additional history existsZoster VaccinesCompleted 08/19/2022, 04/07/2022neumococcal Vaccine: Pediatrics (0 to 5 Years) and At- Risk Patients (6 to 64 Years)Kcqkourjv38/24/2025, 08/19/2022, 04/12/2016, Additional history existsInfluenza UbimgynVmoversfh95/06/2025, 09/16/2024, 03/11/2023, Additional history existsHIB VaccinesAged OutNo [...] to complete this topic Procedures Procedure NamePriorityDate/TimeAssociated DiagnosisCommentsCBC WITH AUTO DUJGRURXYKUTVpjqqwi16/24/2025 12:22 PM EST S/P reverse total shoulder arthroplasty, left Biceps tendinosis of left shoulder BASIC METABOLIC XMQJEJnhszde47/24/2025 12:22 PM EST S/P reverse total shoulder arthroplasty, left Biceps tendinosis of left shoulder CBC AND BHEIVXZPWJGDEftpxvv01/24/2025 12:22 PM EST S/P reverse total shoulder arthroplasty, left Biceps tendinosis of left shoulder PROTIME-JKAVtnsrwh41/24/2025 12:22 PM EST S/P reverse total shoulder arthroplasty, left Biceps tendinosis of left shoulder ZSUXYmsrkgo00/24/2025 12:22 PM EST S/P reverse total shoulder arthroplasty, left Biceps tendinosis of left shoulder MRSA/MSSA DNA XUWXPOnoyvmf30/24/2025 12:22 PM EST S/P reverse total shoulder arthroplasty, left Biceps tendinosis of left shoulder ECG [address] NWUCZCEAGEeuxaly74/03/2025 1:44 PM EST Preop cardiovascular exam from Last 3 Months Results * (ABNORMAL) CBC auto differential (05/19/2025 12:22 PM EST)ComponentValueRef RangeTest MethodAnalysis TimePerformed AtPathologist SignatureAuto WBC6.414.00 - 10.60 10*3/uL05/19/2025 1:19 PM [facility] ([facility])RBC2.97(L)3.80 - 5.00 10*6/uL05/19/2025 1:19 PM [facility] ([facility])Hemoglobin9.2(L) 12.0 - 15.0 g/dL05/19/2025 1:19 PM [facility] ([facility])Ejcxtthrib75.7 (L)36.0 - 45.0 %05/19/2025 1:19 PM [facility] ([facility])HLH336.0(H) 82.0 - 98.0 fL05/19/2025 1:19 PM [facility] ([facility])MCH31.027.0 - 33.0 pg05/19/2025 1:19 PM [facility] ([facility])MCHC31.0(L)32.0 - 35.0 g/dL05/19/2025 1:19 PM [facility] ([facility])RDW13.911.5 - 15.0 % 05/19/2025 1:19 PM [facility] ([facility])Neutrophils %69.040.0 - 72.0 % 05/19/2025 1:19 PM [facility] ([facility])Lymphocytes %22.220.0 - 45.0 % 05/19/2025 1:19 PM [facility] ([facility])Monocytes %5.85.0 - 12.0 % 05/19/2025 1:19 PM [facility] ([facility])Eosinophils %1.70.0 - 6.0 % 05/19/2025 1:19 PM [facility] ([facility])Basophils %0.50.0 - 1.0 % 05/19/2025 1:19 PM [facility] ([facility])Neutrophils Absolute4.431.60 - 7.60 10*3/uL05/19/2025 1:19 PM [facility] ([facility])Lymphocytes Absolute1.421.20 - 4.00 10*3/uL05/19/2025 1:19 PM [facility] ([facility])Monocytes Absolute0.370.10 - 1.00 10*3/uL05/19/2025 1:19 PM [facility] ([facility])Eosinophils Absolute0.110.00 - 0.50 10*3/uL05/19/2025 1:19 PM [facility] ([facility])Basophils Absolute0.030.00 - 0.20 10*3/uL 05/19/2025 1:19 PM [facility] ([facility])Miefdfbrq712622 - 400 10*3/uL 05/19/2025 1:19 PM [facility] ([facility])nRBC %0.00 %05/19/2025 1:19 PM [facility] ([facility])Immature Granulocytes %0.80.0 - 1.0 %05/19/2025 1:19 PM [facility])Immature Granulocytes Absolute0.050.00 - 0.20 10*3/uL05/19/2025 1:19 PM [facility] ([facility])Specimen (Source) Anatomical Location / LateralityCollection Method / VolumeCollection Time Received TimeBloodVenous blood specimen / UnknownVenipuncture / Unknown 05/19/2025 12:22 PM EST05/19/2025 12:54 PM EST Narrative Authorizing ProviderResult TypeResult StatusDavid Scout QUINTEROS BLOOD ORDERABLES Final ResultPerforming OrganizationAddressCity/State/ZIP CodePhone Number [facility]) [address] [place], [place] [id number] * (ABNORMAL) MRSA/MSSA DNA Nasal (05/19/2025 12:22 PM EST)ComponentValueRef RangeTest MethodAnalysis TimePerformed AtPathologist SignatureMSSA DNAPositive (A)Kycdmvle78/25/2025 3:07 PM [facility] ([facility])MRSA DNAPositive(A) Jneqlzqy08/25/2025 3:07 PM [facility] ([facility])Specimen (Source) Anatomical Location / LateralityCollection Method / VolumeCollection Time Received TimeSwabNasal structure / UnknownNon-blood Collection / Unknown 05/19/2025 12:22 PM EST05/19/2025 12:42 PM EST Narrative [facility]) - 05/20/2025 3:07 PM EST Testing [...] GENERAL ORDERABLESFinal ResultPerforming OrganizationAddressCity/State/ZIP Code Phone Number [facility]) [address] [place] [address] * (ABNORMAL) APTT (05/19/2025 12:22 PM EST)ComponentValueRef RangeTest Method Analysis TimePerformed AtPathologist GczymswmprEZH20.6(L)25.0 - 35.0 Seconds 05/19/2025 1:11 PM [facility] ([facility])Comment:Clinical significance of the APTT is questionable in the presence of heparin.Specimen (Source) Anatomical Location / LateralityCollection Method / VolumeCollection Time Received TimeBloodVenous blood specimen / UnknownVenipuncture / Unknown 05/19/2025 12:22 PM EST05/19/2025 12:43 PM EST Narrative Authorizing ProviderResult TypeResult StatusDavid Scout QUINTEROS BLOOD ORDERABLES Final ResultPerforming OrganizationAddressCity/State/ZIP CodePhone Number [facility] ([facility]) [address] [place] [address] * Protime-INR (05/19/2025 12:22 PM EST)ComponentValueRef RangeTest Method Analysis TimePerformed AtPathologist JdmdyvghqOkwlvqo34.312.3 - 14.8 Seconds 05/19/2025 1:05 PM [facility] ([facility])INR0.910.90 - 1.10107/19/2024 1:05 PM [facility] ([facility])Comment: [facility] RECOMMENDED INR FOR WARFARIN THERAPY CONDITION ?INR [...] TimeReceived TimeBloodVenous blood specimen / UnknownVenipuncture / Pnergkv7505/19/2025 12:22 PM EST05/19/2025 12:43 PM EST Narrative Authorizing ProviderResult TypeResult StatusDavid Scout ASCENCIOLAB BLOOD ORDERABLES Final ResultPerforming OrganizationAddressCity/State/ZIP CodePhone Number [facility] ([facility]) [address] [place] [address] * (ABNORMAL) Basic metabolic panel (05/19/2025 12:22 PM EST)ComponentValueRef RangeTest MethodAnalysis TimePerformed AtPathologist RxlzdjgxlFktrdk314(L)136 - 145 mmol/L107/19/2024 1:25 PM [facility] ([facility])Potassium4.73.5 - 5.1 mmol/L107/19/2024 1:25 PM [facility] ([facility])Gvumluod10288 - 107 mmol/L107/19/2024 1:25 PM [facility] ([facility])CZ87434 - 31 mmol/L 05/19/2025 1:25 PM [facility] ([facility])BUN45(H)7 - 25 mg/dL05/19/2025 1:25 PM [facility] ([facility])Creatinine2.62(H)0.60 - 1.20 mg/dL 05/19/2025 1:25 PM [facility] ([facility])Ozuslgz0908 - 100 mg/dL 05/19/2025 1:25 PM [facility] ([facility])Calcium8.5(L)8.6 - 10.3 mg/dL 05/19/2025 1:25 PM [facility] ([facility])Anion Nem293 - 20 mmol/L 05/19/2025 1:25 PM [facility] ([facility])eGFR19.9(L)>60.0 mL/min/1.73m* 1:25 PM [facility] ([facility])Comment:[facility]???s estimated glomerular filtration rate (eGFR) will no [...] one group of individuals.BUN/Creatinine Ratio17. 1:25 PM [facility] ([facility])Specimen (Source)Anatomical Location / LateralityCollection Method / VolumeCollection TimeReceived TimeBloodVenous blood specimen / Unknown Venipuncture / Lqiiajq0405/19/2025 12:22 PM EST05/19/2025 12:50 PM EST Narrative Authorizing ProviderResult TypeResult StatusDavilian QUINTEROS BLOOD ORDERABLES Final ResultPerforming OrganizationAddressCity/State/ZIP CodePhone Number [facility] ([facility]) [address] [place] [address] * ECG 12 lead unit performed (04/28/2025 1:44 PM EST)Specimen (Source)Anatomical Location / LateralityCollection Method / VolumeCollection TimeReceived Time Narrative Authorizing ProviderResult TypeResult StatusGeorge Gwen GARAYG ORDERABLES Final Result from Last 3 Months Additional Health Concerns InfectionOnset DateLast MqekiwasqVVLR20/24/[id number]/19/2024 Insurance Advance Directives * Full Code (Latest Code Status on File) Date ActivatedDate InactivatedComments07/28/2023 7:21 PM2 5:22 PM Care Teams Team MemberRelationshipSpecialtyStart DateEnd Date Yuri Godinez MD [address] [facility] [place] [address] PCP - [facility]10/06/22
--- OUTSIDE RECORDS SUMMARY | 2025-05-27 13:54 | XMS_ITS | Encounter Summary ---
Author Organization [facility] Address [address] [place] [address] Care Team Providers Care Licensed Weigher Name Role Phone Yuri Godinez MD Primary Care Provider [phone] Encounter Details DateTypeDepartmentCare Team (Latest Contact Info)Arzmwvxjvcl42/24/2025Telephone [facility] Heart at [facility] [address] [place] [address] Maren Lake MA Social History Tobacco UseTypesPacks/DayYears UsedDateSmoking Tobacco: NeverSmokeless Tobacco: NeverAlcohol UseStandard Drinks/WeekCommentsNot Currently0 (1 standard drink = 0.6 oz pure alcohol)[facility] UtilitiesAnswerDate RecordedIn the past 12 months [...] CommentsUnknownSex and Gender InformationValueDate RecordedSex Assigned at Tkbzih3512/15/2022 3:22 PM EDTLegal XshBybtpq69/29/2022 9:25 PM EDTGender Identity Kckvsj4212/15/2022 3:22 PM EDTSexual OrientationHeterosexual or Xmtjhlmw62/22/2023 3:22 PM EDTdocumented as of this encounter Miscellaneous Notes * Telephone Encounter - Mariana Garcia MA - 05/21/2025 2:09 PM EST Jenifer from Dr. Godinez's office called to make you aware that he saw Mabel in clinic today. He stopped her diltiazem (like you did in the message below) and restarted her metoprolol 25mg bid. FYI. * Telephone Encounter - Maren Lake MA - 05/19/2025 1:09 PM EST Phone call from patient, patient states you changed her blood pressure medication to diltiazem, patient states she started gain weight and is up 20 pounds, patient states she passed out 2 times and went [facility] ER. Patient was admitted. Patient states her bun and creatine was high. Patient states her legs are swollen and her lymphedema is out of control along with her blood pressure. Patient states tomorrow she sees nephrology and Monday she sees Dr Godinez. Patient started to notice the swelling after she started taking the Diltiazem. Patient was in ER per ER note for over medication of pain pills. Advised patient to seek medical attention, Patient states she just got out of the hospital and will be following up with nephrology and her PCP and does not wish to go to the ER at this time. Patient will be seeing you on 06/06 for a follow up. Please advise. ER and hospital admission are in digital media intern, Echo and labs for you to review. documented in this encounter Plan of Treatment DateTypeDepartmentCare Team (Latest Contact Info)Shrtrkbhcwo01/12/2025 3:45 PM ESTOffice Visit [facility] Heart at [place] [address] [place] [address] Mark Hidalgo MD [address] [facility] [address] [facility] [place] [place] [phone] 07/16/2025 8:30 AM ESTHospital Encounter [facility] Main Operating Room [address] [place] [address] Rojas Butterfield MD [address] [place] [address] 07/16/2025 8:30 AM EST - 07/16/2025 11:30 AM ESTSurgery [facility] Main Operating Room [address] [place] [address] Rojas Butterfield MD [address] [place] [address] REVERSE TOTAL SHOULDER ARTHROPLASTY [[id number] (CPT??)]07/29/2025 11:00 AM ESTOffice Visit [facility] [address] [place] [address] [place] [address] Rojas Butterfield MD [address] [place] [address] NamePriorityAssociated DiagnosesDate/TimeARTHROPLASTY, SHOULDER, TOTAL S/P reverse total shoulder arthroplasty, left Biceps tendinosis of left shoulder 07/16/2025 8:30 AM ESTTENODESIS, BICEPS S/P reverse total shoulder arthroplasty, left Biceps tendinosis of left shoulder 07/16/2025 8:30 AM ESTdocumented as of this encounter Visit Diagnoses Not on filedocumented in this encounter Additional Health Concerns InfectionOnset DateLast IndicatedResolved [id number] as of this encounter Care Teams Team MemberRelationshipSpecialtyStart DateEnd Yuri Godinez MD [address] [facility] [address] [address] PCP - General10/06/22documented as of this encounter
--- OUTSIDE RECORDS SUMMARY | 2025-05-27 13:54 | XMS_ITS | Encounter Summary ---
Author Organization [facility] Address [address] [place] [address] Care Team Providers Care Turf Farmer Name Role Phone Yuri Godinez MD Primary Care Provider [phone] Encounter Details DateTypeDepartmentCare Team (Latest Contact Info)Czzphfbvmyh04/01/2025Telephone [facility] Heart at [facility] [address] [place] [address] Maren Lake MA Social History Tobacco UseTypesPacks/DayYears UsedDateSmoking Tobacco: NeverSmokeless Tobacco: NeverAlcohol UseStandard Drinks/WeekCommentsNot Currently0 (1 standard drink = 0.6 oz pure alcohol)[facility] UtilitiesAnswerDate RecordedIn the past 12 [...] CommentsUnknownSex and Gender InformationValueDate RecordedSex Assigned at Tjchnz4812/15/2022 3:22 PM EDTLegal SdfDjspza04/29/2022 9:25 PM EDTGender Identity Akyait8612/15/2022 3:22 PM EDTSexual OrientationHeterosexual or Tdmaztga77/22/2023 3:22 PM EDTdocumented as of this encounter Plan of Treatment DateTypeDepartmentCare Team (Latest Contact Info)Nkoacmzvtnm52/12/2025 3:45 PM ESTOffice Visit [facility] Heart at [facility] [address] [place] [address] Mark Hidalgo MD [address] [facility] [place] [phone] 07/16/2025 8:30 AM ESTHospital Encounter [facility] Main Operating Room [address] [place] [phone] Rojas Butterfield MD [address] [place] [address] 07/16/2025 8:30 AM EST - 07/16/2025 11:30 AM ESTSurgery [facility] Main Operating Room [address] [place] [address] Rojas Butterfield MD [address] [place] [address] REVERSE TOTAL SHOULDER ARTHROPLASTY [[id number] (CPT??)]07/29/2025 11:00 AM ESTOffice Visit [facility] [address] [place] [address] [place] [address] Rojas Butterfield MD [address] [place] [address] NamePriorityAssociated DiagnosesDate/TimeARTHROPLASTY, SHOULDER, TOTAL S/P reverse total shoulder arthroplasty, left Biceps tendinosis of left shoulder 07/16/2025 8:30 AM ESTTENODESIS, BICEPS S/P reverse total shoulder arthroplasty, left Biceps tendinosis of left shoulder 07/16/2025 8:30 AM ESTdocumented as of this encounter Visit Diagnoses Not on filedocumented in this encounter Additional Health Concerns InfectionOnset DateLast IndicatedResolved GasbULTL98/24/78745307/19/2024documented as of this encounter Care Teams Team MemberRelationshipSpecialtyStart DateEnd Date Yuri Godinez MD [address] [place] [place] [address] PCP - General10/06/22documented as of this encounter
--- OUTSIDE RECORDS SUMMARY | 2025-05-27 13:55 | XMS_ITS | Encounter Summary ---
Author Organization [facility] Address [address] [place] [address] Care Team Providers Care Train Brakeman Name Role Phone Yuri Godinez MD Primary Care Provider [phone] Encounter Details DateTypeDepartmentCare Team (Latest Contact Info)Bsnxjmhtwrw07/24/2025Travel Social History Tobacco UseTypesPacks/DayYears UsedDateSmoking Tobacco: NeverSmokeless Tobacco: NeverAlcohol UseStandard Drinks/WeekCommentsNot Currently0 (1 standard drink = 0.6 oz pure alcohol)[facility] UtilitiesAnswerDate RecordedIn the past 12 months has [...] CommentsUnknownSex and Gender InformationValueDate RecordedSex Assigned at Zdqlof2012/15/2022 3:22 PM EDTLegal McxBnulie09/29/2022 9:25 PM EDTGender Identity Znnyhs4112/15/2022 3:22 PM EDTSexual OrientationHeterosexual or Damsdpxj40/22/2023 3:22 PM EDTdocumented as of this encounter Plan of Treatment DateTypeDepartmentCare Team (Latest Contact Info)Qgpfvqcndok88/12/2025 3:45 PM ESTOffice Visit [facility] Heart at [facility] [address] [place] [address] Mark Hidalgo MD [address] [facility] [address] [facility] [place] [address] 07/16/2025 8:30 AM ESTHospital Encounter [facility] Main Operating Room [address] [place] [address] Rojas Butterfield MD [address] [place] [address] 07/16/2025 8:30 AM EST - 07/16/2025 11:30 AM ESTSurgery [facility] Main Operating Room [address] [place] [address] Rojas Butterfield MD [address] [place] [address] REVERSE TOTAL SHOULDER ARTHROPLASTY [[id number] (CPT??)]07/29/2025 11:00 AM ESTOffice Visit [facility] [facility] [place] [address] Rojas Butterfield MD [address] [place] [address] NamePriorityAssociated DiagnosesDate/TimeARTHROPLASTY, SHOULDER, TOTAL S/P reverse total shoulder arthroplasty, left Biceps tendinosis of left shoulder 07/16/2025 8:30 AM ESTTENODESIS, BICEPS S/P reverse total shoulder arthroplasty, left Biceps tendinosis of left shoulder 07/16/2025 8:30 AM ESTdocumented as of this encounter Visit Diagnoses Not on filedocumented in this encounter Care Teams Team MemberRelationshipSpecialtyStart DateEnd Date Yuri Godinez MD [address] [facility] [place] [address] PCP - General10/06/22documented as of this encounter
--- NOTE | 2025-05-27 13:58 | XR_ITS ---
[address] [address] Patient Name: JOSE CLEMENTS MRN: [id number] date: 1960 Sex: F Assigned Patient Location: [facility] Current Patient Location: [facility] Accession/Order Number: [id number] Exam Date: 05/27/2025 14:09 Report Date: 05/27/2025 14:19 At the request of: ANGLE SANTANA MD Procedure: XR knee LT 2V LEFT KNEE - 2 views CLINICAL HISTORY: Left Knee Pain COMPARISON: Left knee 05/11/2025 FINDINGS: Severe degenerative changes involving the left knee with medial weightbearing joint space narrowing. No acute bony process. Small joint effusion. XR/XR knee LT 2V IMPRESSION: SEVERE DEGENERATIVE CHANGES INVOLVING THE LEFT KNEE WITHOUT ACUTE BONY PROCESS. Impression dictated by: Anuja Kumar Jr.OKianna 05/27/2025 2:19 PM Dictation Location: [place] [address] Electronically authenticated by: [id number] Y Date: 05/27/2025 14:19
--- OUTSIDE RECORDS SUMMARY | 2025-05-27 14:00 | XMS_ITS | CCD ---
Author Organization [facility] CliniSynh Care Team Providers Care Cartography Teacher Name Role Phone NIRMAL LEWIS Admitting [...] Unavailable HOY ., DR BARBOUR Attending Unavailable WALLACE, DR CARLOS Castillo Consulting Unavailable LAKSHMIPATHY ., [...] BARBOUR Primary Care Unavailable HOY ., DR BABROUR Primary Care Unavailable HARP ., DR ANIKA [...] DR BARBOUR Primary Care Unavailable TAMLYN ., FLEECIA Attending Unavailable MAICOL ., FELECIA Admitting Unavailable [...] Unavailable MD Yuri Santana Primary Care Provider [phone] MD Beatriz Oh Admit Provider DO Jim [...] Yuri Santana MD M Primary Care Provider [phone] Casimiro ASCENCIO, Raeann Attending Provider Gihellenitis [...] Allergen(s)Allergy TypeDate of OnsetReaction(s) Facility (14 sources)AmoxicillinDrug Yrmknsh86-85-8915Ikwnswx, [facility] (6 sources)Amoxicillin / Clavulanate; Translations: [amoxicillin-clavulanate] Drug AllergyWeal (disorder)[facility] (18 sources)Povidone-Iodine; Translations: [POVIDONE-IODINE]Drug Allergy 46-22-3475Diywziux of skin (disorder)[facility] (9 sources)Sulfamethoxazole / TrimethoprimDrug [facility]ergyEle[facility] Other (1 source)sulfaSALAzineDrug AllergyEleanor [facility]ater Hospital [facility] Other (8 sources)Amoxicillin / Clavulanate; Translations: [Augmentin]Drug Allergy 89-18-7929KitmkpfMdoGalion [facility] (1 source)BumetanideDrug Jxqzdwd31-14-1977TjdFisher-[facility] (1 source)CephalexinDrug Jhgdavw11-45-8797Iue [facility] Repository (2 sources)gabapentin; Translations: [GABAPENTIN]Drug Rofxbfr50-82-7800Mzd [facility] Repository (4 sources)Povidone-Iodine; Translations: [Betadine]Drug Lxijtvi39-26-2979Cfv [facility] (1 source)pregabalin; Translations: [LYRICA]Drug Qvkbrwu88-71-8202VigFisher-Titus Medical [facility] (11 sources)Sulfonamides (Antibiotic); Translations: [SULFA (SULFONAMIDE ANTIBIOTICS)]Drug allergy (disorder)64-61-7864QbqwPynAultman [facility] (1 source)SulfonamideDrug allergyEleanor [facility] Other (7 sources)Substance with sulfonamide structure and antibacterial mechanism of action (substance)Drug allergyEle[facility] Hospital [facility] Other (7 sources)Clavulanate; Translations: [clavulanic acid]Drug Xmgrqff29-62-3956 DiarrheaDayton [facility]opathic [facility] (1 source)CiprofloxacinDrug Jcliicv36-29-3634NruMemorial [facility] System [facility] (1 source)AmoxicillinDrug Ifeijxn72-55-9966XmsmezzdkDayton Osteopathic Hospital [facility] (1 source)Povidone-IodineDrug Oekbmyr31-81-6337KjxmgytszDayton Osteopathic Hospital Repository (4 sources)SulfamethoxazoleDrug Sctpnjd88-98-3011Adwexqw ReactionDayton Osteopathic Hospital Repository (1 source)Sulfonamides (Antibiotic)Drug allergy (disorder)54-23-2477GvtjzwkszDayton Osteopathic Hospital [facility] (5 sources)Trimethoprim; Translations: [TRIMETHOPRIM]Drug Vogxsjr94-85-5167 Unknown ReactionDayton Osteopathic Hospital Repository (3 sources)AMOXICILLIN-POT CLAVULANATE; Translations: [AMOXICILLIN-POT CLAVULANATE]Propensity to adverse reactions to drug (disorder)06-13-2014 [facility] Repository (2 sources)Sulfonamides (Antibiotic); Translations: [sulfa drugs]Drug allergy Eruption of skin (disorder)[facility] (1 source)carvedilol; Translations: [CARVEDILOL]Drug Yvswjke76-52-7723AuvfrpdsocElyria [facility] (1 source)Cephalexin; Translations: [CEPHALEXIN]Drug Copaqqn95-67-6854CtrcpaprbvElyria Memorial Hospital [facility] (1 source)Ciprofloxacin; Translations: [CIPROFLOXACIN]Drug Pefuvlr05-90-8331 [facility] Repository (1 source)Iodine; Translations: [IODINE]Drug Xjpcawq58-68-3211ZkvfiodcmhElyria Memorial Hospital [facility] (1 source)pregabalin; Translations: [PREGABALIN]Drug Movvilm26-24-0880EgbiltkhlmElyria Memorial Hospital Repository (1 source)Sulfamethoxazole / Trimethoprim; Translations: [SULFAMETHOXAZOLE-TRIMETHOPRIM]Drug Ejiaidr23-06-3649MbdwatsgcrElyria Memorial Hospital Repository Medications Current Medications MedicationDrug Class(es)DatesSig (Normalized)Sig (Original)acetaminophen 300 mg / butalbital 50 mg / caffeine 40 mg oral capsule (6 sources)Barbiturate, Central Nervous System Stimulant, MethylxanthineStart: 74-25-7129ehhc 1 capsule by mouth every four hoursFioricet oral capsule 1 cap(s), Oral, q4hr Migraine headache, Refill(s) 0 Start Date: 02/12/24 Status: OrderedStart: 10-28-2022 End: 92-09-7200Ppguyxfhwb-Acetaminophen-Caff 50-325-40 mg capsule Discontinued 1 CAP PO As Directed as needed for Migraine Headache October 28, 2022 12:00am June 30, 2023 1:84vz854 actuat albuterol 0.09 mg/actuat dry powder inhaler (8 sources)beta2-Adrenergic AgonistStart: 71-67-7247Nskhqxasl Sulfate 90 mcg/actuation aerosol powdr breath activated Active 2 INH INHALATION Every 6 ho urs as needed March 26, 2024 12:00am Complies with drug therapyStart: 10-28-2022 End: 21-48-3340bbju 1 puff(s) by inhalation every six hours [...] 12:00am Complies with drug therapyStart: 10-28-2022 End: 09-70-2286lqdx 1 mL by inhalation every six hours as neededIpratropium- Albuterol 0.5 mg-3 mg(2.5 mg base)/3 mL Solution For Nebulization Discontinued 3 ML INHALATION Q6H as needed for Shortness Of Breath October 28, 2022 12:00am June 30, 2023 1:26amALPRAZolam 0.5 mg oral tablet (19 sources)BenzodiazepineStart: 15-33-6360xbph 1 tablet by mouth once daily at bedtimeAlprazolam 0.5 mg tablet Active 0.5 MG PO Daily at bedtime January 14, 2025 11:09am Complies with drug therapyStart: 03-26-2024 End: 55-07-9090figr 1 tablet by mouth twice dailyAlprazolam 0.5 mg tablet Discontinued 0.5 MG PO Twice daily March 26, 2024 12:00am January 14, 2025 11:14amStart: 92-00-5531ddba 1 tablet by mouth twice daily as needed for anxiety alprazolam 0.5 mg Tab 0.5 mg = 1 tab(s), Oral, BID, PRN for anxiety, Refills(s) 0 Start Date: 02/12/24 Status: OrderedStart: 08-31-2018 End: 74-86-9383xbcp 2 tablets by mouth twice daily as [...] 150 mg oral tablet (20 sources)Tricyclic AntidepressantStart: 98-01-0310mhob 2 tablets by mouth once daily at bedtimeAmitriptyline 150 mg tablet Active 300 MG PO Daily at bedtime January 14, 2025 11:09am Complies withdrug therapyStart: 10-02-2024 End: 46-71-8685zooh 1 tablet by mouth twice dailyAmitriptyline 150 mg tablet Discontinued 150 MG PO Twice daily October 02, 2024 2:48pm January 14, 2025 11:14amStart: 10-28-2022 End: 14-09-8445bimz 2 tablets by mouth at bedtimeAmitriptyline 150 mg tablet Discontinued 300 MG PO Bedtime October 28, 2022 12:00am October 02, 2024 2:58pm Start: 76-26-3277fajd 300 mg by mouth at bedtimeAmitriptyline Active 300 MG PO Bedtime October 28, 2022 12:00amStart: 51-30-7709cbik 150 mg by mouth once daily Amitriptyline Active 150 MG PO Daily October 28, 2022 12:00amStart: 08-31-2018 End: 04-66-8088bjlh 2 tablets by mouth once dailyAmitriptyline 100 mg Tablet Discontinued 200 MG PO Daily August 31, 2018 1:00am September 04, 2018 7:59am Start: 08-31-2018 End: 85-89-9176cwjv 200 mg by mouth once dailyAmitriptyline Discontinued 200 MG PO Daily August 31, 2018 1:00am September 04, 2018 7:59amatorvastatin 40 mg oral tablet (1 source)HMG-CoA Reductase InhibitorStart: 09-53-0980lhbd 1 tablet by mouth once dailyatorvastatin 40 mg Tab 40 mg = 1 tab(s), Oral, Daily, Refills(s) 0 Start Date: 02/12/24 Status: Orderedazelastine hydrochloride 0.5 mg/ml ophthalmic solution (3 sources)Histamine-1 Receptor AntagonistStart: 78-08-3364secg 1 drop(s) into the eye(s) once dailyAzelastine 0.05 % drops Active 1 DROPS EYE-BOTH Daily January 14, 2025 11:10am Complies with drug therapyStart: 10-02-2024 End: 27-00-1306xlat 1 drop(s) into the eye(s) twice dailyAzelastine 0.05 % drops Discontinued 1 DROPS EYE-BOTH Twice daily October 02, 2024 12:00am January 14, 2025 11:14amStart: 71-65-1325ydou 1 drop(s) into the eye(s) twice daily Azelastine 0.05 % drops Active 1 DROPS EYE-BOTH Twice daily October 02, 2024 12:00amB Complex (Folic Acid) - (9 sources)B Complex (Folic Acid) - as directed Orally ONCE A DAY Active butorphanol tartrate 1 mg/actuat metered dose nasal spray (10 sources)Opioid Agonist/AntagonistStart: 02-49-1094njxmlxgktnf 10 mg/mL Nasal Combs = 1 spray(s), Nasal, Daily, PRN as needed for pain, Refills(s) 0 Start Date: 02/12/24 Status: OrderedStart: 10-28-2022 End: 31-75-6057Twlmrzlbssk 10 mg/mL spray,non-aerosol Active 1 SPRAY INTRANASAL Daily as needed for Migraine Headache June 30, 2023 1:00am Complies with drug therapyStart: 10-28-2022 End: 28-76-2876Hslhcosoftq Active 1 SPRAY INTRANASAL Daily June 30, 2023 1:00amcalcitriol 0.0005 mg oral capsule (2 sources)Vitamin D3 AnalogStart: 98-49-9560kkss 1 capsule by mouth once daily Calcitriol [...] 1.25 mg oral capsule (11 sources)Vitamin DStart: 16-84-3383drmo 1 capsule by mouth every week Cholecalciferol (Vitamin D3) 1,250 mcg (50,000 unit) capsule Active 1250 MCG PO every week October 02, 2024 12:00am Complies with drug therapytake 1 capsule by mouth once dailyCholecalciferol 25 MCG (1000 UT) 1 capsule Orally Once a day Activetake 1 capsule by mouth once dailyCholecalciferol 125 MCG (5000 UT) 1 capsule Orally Once a day Fawqky93 hr desvenlafaxine succinate 50 mg extended release oral tablet (10 sources)Serotonin and Norepinephrine Reuptake InhibitorStart: 18-57-4882pjnf 1 tablet by mouth once dailydesvenlafaxine 50 mg Tab- 50 mg = 1 tab(s), Oral, Daily, Refills(s) 0 Start Date: 02/12/24 Status: OrderedStart: 06-30-2023 End: 77-92-0735lwnt 1 tablet by mouth once dailyDesvenlafaxine Succinate 100 mg tablet extended release 24 hr Discontinued 100 MG PO Daily June 30, 2023 1:00am January 14, 2025 11:11amStart: 10-28-2022 End: 60-22-4623itmz 1 tablet by mouth once dailyDesvenlafaxine Succinate 50 mg tablet extended release 24 hr Discontinued 50 MG PO Daily October 28, 2022 12:00am June 30, 2023 1:30amdocusate sodium 250 mg oral capsule (1 source)take 1 capsule by mouth once daily as neededDocusate Sodium 250 MG 1 capsule as needed Orally Once a day NEEDED Activeescitalopram 20 mg oral tablet (6 sources)Serotonin Reuptake InhibitorStart: 55-53-1677vsjk 1 tablet by mouth once dailyLexapro 20 mg Tab 20 mg = 1 tab(s), Oral, Daily, Refills(s) 0 Start Date: 02/12/24 Status: OrderedStart: 10-28-2022 End: 41-88-4419ykaz 1 tablet by mouth once dailyEscitalopram Oxalate 20 mg tablet Discontinued 20 MG PO Daily October 28, 2022 12:00am June 30, 2023 1:27am72 hr fentaNYL 0.1 mg/hr transdermal system (20 sources)Opioid AgonistStart: 86-92-8722Zljboomm 100 mcg/hr patch 72 hour Active 1 PATCH TRANSDERML Q72H October 28, 2022 12:00am Complies with drug therapy Start: 28-19-6314Jbvgqywve-100 transdermal film, extended release = 1 patch(es), Topical, q72hr, EA, Refills(s) 0 Start Date: 09/16/20 Status: OrderedStart: 08-31-2018 End: 61-46-4061Vysdfigz 50 mcg/hr Patch 72 Hour Discontinued 1 PATCH TRANSDERML Q72H August 31, 2018 1:00am October 28, 2022 7:54pmfentaNYL 100 MCG/HR 1 patch to skin Transdermal EVERY 72 HOURS ActivefentaNYL 50 MCG/HR 1 patch to skin Transdermal CHANGE EVERY 72 HOURS Activeferrous sulfate 325 mg oral tablet (10 sources)Start: 67-64-6998apkh 1 tablet by mouth once dailyFerrous Sulfate (Ferosul) 325 mg (65 mg iron) tablet Active 325 MG PO Daily January 14, 2025 12:00amComplies with drug therapyStart: 07-03-2023 End: 16-47-4492htiz 1 tablet by mouth once dailyFerrous Sulfate 324 mg (65 mg iron) Tablet,Delayed Release (Dr/Ec) Discontinued 324 MG PO Daily July 03, 2023 1:00am March 26, 2024 12:10pmStart: 08-31-2018 End: 75-08-2714igrb 1 tablet by mouth once dailyFerrous Sulfate [...] tablet in pm Orally twice a day Mfyqpk63 actuat fluticasone furoate 0.1 mg/actuat / vilanterol 0.025 mg/actuat dry powder inhaler (11 sources)Corticosteroid, beta2-Adrenergic AgonistStart: 03-26-2024 End: 69-03-2157Yzarhudavhg Furoate-Vilanterol (Breo Ellipta) 100-25 mcg/dose blister with device Active 1 INH INHALATION Daily as needed January 14, 2025 11:11am Complies with drug therapyStart: 40-84-0437kohf 1 puff(s) by inhalation once dailyBreo Ellipta 100 mcg-25 mcg inhalation powder 1 puff(s), Inhalation, Daily, 30 dose unit Start Date: 09/08/20 Status: OrderedStart: 08-31-2018 End: 11-51-0706Eoemowuaxuz Furoate-Vilanterol (Breo Ellipta) 100-25 mcg/dose Blister With Device Discontinued 1 INH INHALATION Daily August 31, 2018 1:00am June 30, 2023 1:25amStart: 08-31-2018 End: 44-75-1150Zehzbqzdfoe Furoate-Vilanterol (Breo Ellipta) 100-25 mcg/dose Blister With Device Discontinued 1 INH INHALATION Daily August 31, 2018 12:00am June 30, 2023 12:25amStart: 93-65-9814Ibrgsmvuqxf Furoate-Vilanterol (Breo Ellipta) 100-25 mcg/dose Blister With [...] sodium 0.1 mg oral tablet (20 sources)l-ThyroxineStart: 66-14-5702koqv 1 tablet by mouth once daily Levothyroxine 100 mcg tablet Active 100 MCG PO Daily October 28, 2022 12:00am Complies with drug therapyStart: 76-84-5603ettw 1 tablet by mouth once daily levothyroxine 100 mcg (0.1 mg) Tab 100 mcg = 1 tab(s), Oral, Daily Start Date: 09/08/20 Status: OrderedStart: 08-31-2018 End: 21-58-8180enyl 1 tablet by mouth once dailyLevothyroxine (Synthroid) 88 mcg Tablet Discontinued 88 MCG PO Daily August 31, 2018 1:00am October 28, 2022 9:37pm linaclotide 0.29 mg oral capsule (18 sources)Guanylate Cyclase-C AgonistStart: 10-02-2024 End: 65-22-9574qzwh 1 capsule by mouth once daily as neededLinaclotide (Linzess) 290 mcg capsule Active 290 MCG PO Daily as needed January 14, 2025 11:12am Comp lies with drug therapyStart: 66-42-2548zens 1 capsule by mouth once dailyLinzess 290 mcg oral capsule 290 mcg = 1 cap(s), Oral, Daily, Refills(s) 0 Start Date: 02/12/24 Status: OrderedStart: 10-28-2022 End: 30-23-1567Hrghnpnggnb (Linzess) 290 mcg capsule Discontinued 290 MCG PO Every 48 hours October 28, 2022 12:00am October 02, 2024 2:58pmStart: 15-03-8838jhxz 1 capsule by mouth once dailyLinaclotide (Linzess) 290 mcg capsule Active 290 MCG PO Daily October 28, 2022 12:00amLinzess 290 290mcg 1 PO every other day Active Linzess 290 290mcg 1 PO Every AM Activeliothyronine sodium 0.025 mg oral tablet (20 sources)l-TriiodothyronineStart: 56-79-6211ilzn 1 tablet by mouth once daily Cytomel 25 mcg Tab 25 mcg = 1 tab(s), Oral, Daily, Refills(s) 0 Start Date: 02/12/24 Status: OrderedStart: 10-28-2022 End: 96-95-2712tycg 1 tablet by mouth once dailyLiothyronine 25 mcg Tablet Discontinued 25 MCG PO Daily June 30, 2023 1:00am March 26, 2024 12:09pm take 1 tablet by mouth every twenty-four hoursLiothyronine Sodium 25 MCG 1 tablet on an empty stomach Orally Once a day Activeloratadine 10 mg oral tablet (7 sources)Start: 14-69-4638igod 1 tablet by mouth once daily as needed Loratadine (Claritin) 10 mg Tablet Active 10 MG PO Daily as needed for Allergy Symptoms June 29, 2023 1:00am Complies with drug therapyMulti For Her - (9 sources)Multi For Her - as directed Orally Activeondansetron 4 mg disintegrating oral tablet (15 sources)Serotonin-3 Receptor AntagonistStart: 43-89-0654euxj 1 tablet by mouth every six hours as needed for nauseaondansetron 4 mg Dis Tab 4 mg = 1 tab(s), Oral, q6hr, PRN Nausea/Vomiting, Refills(s) 0 Start Date:02/12/24 Status: OrderedStart: 85-42-1328Cggsrlobfuu Hcl (Zofran) 4 mg Tablet Active 4 MG PO every 6 to 8 hours as needed for Nausea And Vomiting August 31, 2018 1:00am Complies with drug therapytake 1 tablet by mouth once daily as neededOndansetron 4 MG 1 tablet on the tongue and allow to dissolve Orally Once a day PRN Active primidone 50 mg oral tablet (20 sources)Anti-epileptic AgentStart: 02-92-1704cvrx 150 mg by mouth at bedtime Primidone Active 150 MG PO Bedtime March 26, 2024 12:08pmStart: 02-12-2024 take 3 tablets by mouth once dailyprimidone 50 mg Tab 150 mg = 3 tab(s), Oral, Daily, Refills(s) 0 Start Date: 02/12/24 Status: OrderedStart: 06-29-2023 End: 23-65-9635codj 1 tablet by mouth at bedtimePrimidone 50 mg tablet Active 150 MG PO Bedtime March 26, 2024 12:08pm Complies with drug therapyStart: 06-29-2023 End: 91-51-6819fsao 100 mg by mouth at bedtimePrimidone Discontinued 100 MG PO Bedtime June 29, 2023 1:00am March 26, 2024 12:11pmStart: 08-31-2018 End: 08-58-8334gyzc 1 tablet by mouth twice dailyPrimidone 50 mg Tablet Discontinued 100 MG PO Twice daily August 31, 2018 1:00am September 04, 2018 7: 59amStart: 08-31-2018 End: 27-40-3200kzcv 100 mg by mouth twice dailyPrimidone Discontinued [...] oral tablet (20 sources)Angiotensin 2 Receptor BlockerStart: 02-03-9813uabh 1 tablet by mouth twice dailySacubitril-Valsartan (Entresto) 49-51 mg tablet Active 1 TAB PO Twice daily October 02, 2024 12:00amComplies with drug therapyStart: 06-29-2023 End: 91-04-9668rcpy 1 tablet by mouth twice dailySacubitril-Valsartan (Entresto) 97-103 mg tablet Discontinued 1 TAB PO Twice daily June 29, 2023 1:00am March 26, 2024 12:10pm On Hold: Resume when kidney function has returned to baseline pernephrologyStart: 10-28-2022 End: 67-64-9400beiu 1 tablet by mouth twice dailySacubitril-Valsartan (Entresto) [...] oral capsule (17 sources)Central alpha-2 Adrenergic AgonistStart: 23-78-8152ovro 1 capsule by mouth twice daily as neededTizanidine 4 mg capsule Active 4 MG PO Twice daily as needed October 02, 2024 12:00am Complies with drug therapyStart: 09-08-2020 take 2 tablets by mouth every eight hourstiZANidine 4 mg Tab 8 mg = 2 tab(s), Oral, q8hr Start Date: 09/08/20 Status: OrderedStart: 08-31-2018 End: 07-67-1829vpob 1 capsule by mouth three times daily [...] b12 1 mg/ml injectable solution (3 sources)Vitamin Z55Hadth: 97-06-7401bdbnxg 100 ug by subcutaneous injection every monthCyanocobalamin (Vitamin B-12) 1,000 mcg/mL kit Active 100 MCG SUBCUT every month October 02, 2024 12:00am Complies with drug therapyStart: 02-12-2024 inject 1000 ug by intramuscular injection every monthcyanocobalamin 1000 mcg/mL Inj 1,000 mcg, IntraMuscular, qMonth, Refills(s) 0 Start Date: 02/12/24 Status: Orderedvitamin e 180 mg oral capsule (1 source)Start: 85-14-3038nuqd 1 capsule by mouth once dailyVitamin E (Dl, Acetate) 180 mg (400 unit) capsule Active 180 MG PO Daily January 14, 2025 12:00am Complies with drug therapy Completed/Discontinued Medications MedicationDrug Class(es)DatesSig (Normalized)Sig (Original)acetaminophen 325 mg / oxyCODONE hydrochloride 5 mg oral tablet (19 sources)Opioid AgonistStart: 06-29-2023 End: 58-02-6317azkv 1 tablet by mouth twice daily as needed for painOxycodone- Acetaminophen (Percocet) 5-325 mg tablet Discontinued 1 TAB PO 2 times daily as needed for Pain June 29, 2023 1:00am June 30, 2023 11:41amStart: 61-36-0560mczc 1 tablet by mouth every six hours as needed for painOxycodone- Acetaminophen (Percocet) 5-325 mg Tablet Active 1 - 2 TAB PO Q6H as needed for Pain 2018 1:00am Complies with drug therapyStart: 15-42-7388dugg 2 tablets by mouth every four to six hoursOxycodone-Acetaminophen (Percocet) 5-325 mg Tablet Active 2 TAB PO EVERY 4-6 HOURS August 31, 2018 1:00amtake 2 tablets by mouth every four hours as neededoxyCODONE-Acetaminophen 5-325 MG 2 tablet as needed Orally every 4 hrs PRN Activeapixaban 5 mg oral tablet (4 sources)Factor Xa InhibitorStart: 03-26-2024 End: 06-46-4889ucfj 1 tablet by mouth twice dailyApixaban (Eliquis) 5 mg tablet Discontinued 5 MG PO Twice daily March 26, 2024 12:00am January 14, 2025 11:10amStart: 49-09-3690ufst 1 tablet by mouth twice dailyEliquis 5 mg oral tablet 5 mg = 1 tab(s), Oral, BID, Refills(s) 0 Start Date: 02/12/24 Status: OrderedARIPiprazole 2 mg oral tablet (14 sources)Atypical AntipsychoticStart: 10-28-2022 End: 71-29-2581esmx 1 tablet by mouth once dailyAripiprazole 2 mg tablet Discontinued 2 MG PO Daily October 28, 2022 12:00am October 02, 2024 2:49pmaspirin 81 mg delayed release oral tablet (3 sources)Platelet Aggregation Inhibitor, Nonsteroidal Anti-inflammatory Drug Start: 10-02-2024 End: 11-90-4921xrty 1 tablet by mouth once dailyAspirin (Adult Aspirin Regimen) 81 mg tablet,delayed release (DR/EC) Discontinued 81 MG PO Daily October 02, 2024 12:00am January 14, 2025 11:10amStart: 75-50-9782iocrakp 81 mg Chew Tab 81 mg = 1 tab(s), Chewed, Daily, Refills(s) 0 Start Date: 02/12/24 Status: Ordered bumetanide 1 mg oral tablet (20 sources)Loop DiureticStart: 10-02-2024 End: 30-37-9889qkli 1 tablet by mouth twice dailyBumetanide 1 mg tablet Discontinued 2 MG PO Twice daily October 02, 2024 2:50pm October 02, 2024 3:17pm Start: 03-26-2024 End: 82-05-6474bwbh 1 tablet by mouth three times daily as neededBumetanide 1 mg tablet Discontinued 2 MG PO Three times daily as needed March 26, 2024 12:03pm October 02, 2024 2:58pmStart: 54-76-4532msro 2 mg by mouth three times dailyBumetanide Active 2 MG PO Three times daily March 26, 2024 12:03pmStart: 25-81-6656bhbg 1 tablet by mouth twice dailybumetanide 2 mg Tab 2 mg = 1 tab(s), Oral, BID, Refills(s) 0 Start Date: 02/12/24 Status: OrderedStart: 07-03-2023 End: 53-31-4705mrsi 1 tablet by mouth twice dailyBumetanide 1 mg tablet Discontinued 2 MG PO Twice daily 60 July 03, 2023 2:00pm March 26, 2024 12:11pm Take twice dailyStart: 07-03-2023 End: 88-32-1789zdpp 6 mg by mouth once daily as neededBumetanide 1 mg tablet Discontinued 2 MG PO Twice daily 60 July 03, 2023 2:00pm July 03, 2023 1:50pm MAY TAKE UP TO 6 MG DAILY PRNStart: 07-03-2023 End: 76-43-7642amgv 6 mg by mouth once daily as neededBumetanide 1 mg tablet Discontinued 2 MG PO Twice daily 60 July 03, 2023 2:00pm July 03, 2023 1:50pm MAY TAKE UP TO 6 MG DAILY PRNStart: 07-03-2023 End: 67-04-9456gsfe 6 mg by mouth once daily as neededBumetanide Discontinued 2 MG PO Twice daily 60 July 03, 2023 2:00pm July 03, 2023 1:50pm MAY TAKE UP TO 6 MG DAILY PRNStart: 07-03-2023 End: 45-89-3568xyvx 2 mg by mouth twice dailyBumetanide Discontinued 2 MG PO Twice daily 60 July 03, 2023 2:00pm March 26, 2024 12:11pm Take twice dailyStart: 07-03-2023 End: 90-08-8192gydk 6 mg by mouth once daily as neededBumetanide Discontinued 2 MG PO Twice daily 60 July 03, 2023 1:00pm July 03, 2023 12:50pm MAY TAKE UP TO 6 MG DAILY PRNStart: 10-28-2022 End: 22-65-1996cmhj 6 mg by mouth once daily as needed for edemaBumetanide 1 mg tablet Discontinued 2 MG PO Daily as needed for Edema October 28, 2022 12:00am 2023 1:49pm MAY TAKE UP TO 6 MG DAILY PRNStart: 10-28-2022 End: 66-09-4383tjmq 6 mg by mouth once daily as neededBumetanide Discontinued 2 MG PO Daily October 28, 2022 12:00am July 03, 2023 1:49pm MAY TAKE UP TO6 MG DAILY PRNStart: 82-01-3570xmpn 1 mg by mouth three times dailyBumetanide Active 1 MG PO Three times daily October 28, 2022 12:00amStart: 08-31-2018 End: 59-75-5184gygb 1 tablet by mouth once dailyBumetanide 2 mg Tablet Discontinued 2 MG PO Daily August 31, 2018 1:00am October 28, 2022 7:46pmtake 1 tablet by mouth every twenty-four hoursBumetanide 1 MG 1 tablet Orally Once a day Toynbk99 hr buPROPion hydrochloride 300 mg extended release oral tablet (5 sources)AminoketoneStart: 08-31-2018 End: 98-48-7005awgm 1 tablet by mouth once daily in the morningBupropion Hcl (Wellbutrin Xl) 300 mg Tablet Extended Release 24 Hr Discontinued 300 MG PO Every morning August 31, 2018 1:00am June 30, 2023 1:27amcalcium acetate 667 mg oral capsule (9 sources)Start: 10-28-2022 End: 11-36-5797zjoa 1 capsule by mouth twice daily at [...] mg/mg topical gel (1 source)Nonsteroidal Anti-inflammatory DrugStart: 22-97-3037Ryfjvhsf Gel 1% Gel 2 gm, Topical, BID, Refill(s) 0 Start Date: 02/12/24 Status: Ordered dicyclomine hydrochloride 20 mg oral tablet (6 sources)AnticholinergicStart: 10-28-2022 End: 51-79-3375Epjmxeudnla 20 mg Tablet Discontinued 20 MG PO As Directed as needed for Abdominal Pain October 28, 2022 12:00am June 30, 2023 1:30amtake 1 tablet by mouth four times daily as neededDicyclomine HCl 20 MG 1 tablet Orally Four times a day NEEDED Activedoxepin hydrochloride 10 mg oral capsule (3 sources)Tricyclic AntidepressantStart: 10-02-2024 End: 85-06-2365ruas 1 capsule by mouth once dailyDoxepin 10 mg capsule Discontinued 10 MG PO Daily October 02, 2024 12:00am January 14, 2025 11:11am Start: 30-97-0047gisv 1-2 capsules by mouth once daily at bedtimedoxepin 10 mg Cap 1-2 caps, Oral, Once a day (at bedtime), Refills(s) 0 Start Date: 02/12/24 Status:OrderedDULoxetine 60 mg delayed release oral capsule (14 sources)Serotonin and Norepinephrine Reuptake InhibitorStart: 10-28-2022 End: 96-70-2755ncbb 2 capsules by mouth once dailyDuloxetine 60 mg capsule,delayed release(DR/EC) Discontinued 120 MG PO Daily October 28, 2022 12:00am March 26, 2024 12:05pmStart: 10-28-2022 End: 15-77-6469pvtf 120 mg by mouth once dailyDuloxetine Discontinued 120 MG PO Daily October 28, 2022 12:00am March 26, 2024 12:05pmtake 1 capsule by mouth every twelve hoursDULoxetine HCl 60 MG 1 capsule Orally Twice a day Active fluconazole 100 mg oral tablet (5 sources)Azole AntifungalStart: 08-31-2018 End: 20-68-6271kgyc 1 tablet by mouth once dailyFluconazole 100 mg Tablet Discontinued 100 MG PO Daily August 31, 2018 1:00am September 04, 2018 7:59am gabapentin 100 mg oral capsule (4 sources)Anti-epileptic AgentStart: 06-29-2023 End: 44-73-5557xpeb 1 tablet by mouth three times dailyGabapentin 100 mg Tablet Discontinued 100 MG PO Three times daily June 29, 2023 1:00am March 26, 2024 12:05pmhydrALAZINE hydrochloride 25 mg oral tablet (19 sources)Arteriolar VasodilatorStart: 10-02-2024 End: 96-37-0673tclp 1 tablet by mouth four times dailyHydralazine 25 mg tablet Discontinued 25 MG PO Four times daily October 02, 2024 12:00am January 14, 2025 11:12amStart: 09-08-2020 End: 87-08-3536ktpa 1 tablet by mouth three times dailyHydralazine 50 mg Tablet Discontinued 50 MG PO Three times daily October 28, 2022 12:00am June 1:22amhyoscyamine sulfate 0.125 mg oral tablet (12 sources)Start: 03-26-2024 End: 44-40-1018ssdh 1 tablet by mouth once daily as neededHyoscyamine Sulfate 0.125 mg tablet Discontinued 0.125 MG PO Daily as needed March 26, 2024 12:00 am October 02, 2024 2:55pmtake 1 tablet by mouth every six hoursHyoscyamine Sulfate 0.125 MG 1 tablet on the tongue and allow to dissolve Orally Four times a day ActivelevoFLOXacin 750 mg oral tablet (5 sources)Quinolone AntimicrobialStart: 08-31-2018 End: 05-90-1129dptp 1 tablet by mouth once dailyLevofloxacin 750 mg Tablet Discontinued 750 MG PO Daily August 31, 2018 1:00am September 04, 2018 7:59am metoclopramide 5 mg oral tablet (13 sources)Dopamine-2 Receptor AntagonistStart: 08-31-2018 End: 01-34-3169rlvd 1 tablet by mouth once dailyMetoclopramide Hcl (Reglan) 5 mg Tablet Discontinued 5 MG PO Daily August 31, 2018 1:00am June 30, 2023 1:26amtake 1 tablet by mouth every six hoursMetoclopramide HCl 10 MG 1 tablet before meals Orally Four times a day Activemetoprolol tartrate 25 mg oral tablet (14 sources)beta-Adrenergic BlockerStart: 08-31-2018 End: 59-26-1128pbvy 1 tablet by mouth twice dailyMetoprolol Tartrate 25 mg Tablet Discontinued 25 MG PO Twice daily August 31, 2018 1:00am March 26, 2024 12:10pmStart: 17-21-4959isnd 50 mg by mouth twice dailyMetoprolol Tartrate Active 50 MG PO Twice daily August 31, 2018 1:00amtake 1 tablet by mouth every twelve hoursMetoprolol Tartrate 50 MG 1 tablet with food Orally Twice a day Not-Taking/KAEFb-Gpjaosy-Hip-Iron Fm-Fa-Vitk (Multi For Her) 18 mg iron-600 mcg- 80 mcg Tablet (5 sources)Start: 08-31-2018 End: 55-82-5288nuit 1 tablet by mouth once elpvbOr-Jnzksrm-Rrl-Iron Fm-Fa-Vitk (Multi For Her) 18 mg iron-600 mcg-80 mcg Tablet Discontinued 1 TAB PO Daily August 31, 2018 1:00am June 30, 2023 1:26amStart: 08-31-2018 End: 33-62-8976xznz 1 tablet by mouth once ugnffIu-Chbdmyh-Aoo-Iron Fm-Fa-Vitk (Multi For Her) 18 mg iron-600 mcg-80 mcg Tablet Discontinued 1 TAB PO Daily August 31, 2018 12:00am June 30, 2023 12:26amStart: 86-83-1013chza 1 tablet by mouth once xdabvJk-Slltgrw-Ktv-Iron Fm-Fa-Vitk (Multi For Her) 18 mg iron-600 mcg-80 mcg Tablet Active 1 TAB PO Daily August 31, 2018 1:00ampantoprazole 40 mg delayed release oral tablet (20 sources)Proton Pump InhibitorStart: 10-02-2024 End: 98-91-7936avks 1 tablet by mouth once dailyPantoprazole 40 mg tablet,delayed release (DR/EC) Discontinued 40 MG PO Daily October 02, 2024 12:00am January 14, 2025 11:13amStart: 85-41-6559xfuk 1 tablet by mouth once dailyProtonix 40 mg Tab-DR 40 mg = 1 tab(s), Oral, Daily, Refills(s) 0 Start Date: 02/12/24 Status: OrderedStart: 06-30-2023 End: 46-27-5565mmfh 1 tablet by mouth twice dailyPantoprazole (Protonix) 40 mg Tablet,Delayed Release (Dr/Ec) Discontinued 40 MG PO Twice daily June 30, 2023 1:00am March 26, 2024 12:10pmStart: 08-31-2018 End: 63-95-3780euci 2 tablets by mouth twice dailyPantoprazole (Protonix) 20 mg Tablet,Delayed Release (Dr/Ec) Discontinued 40 MG PO Twice daily August 31, 2018 1:00am June 30, 2023 11:41amStart: 40-58-3691aaqd 1 tablet by mouth once dailyPantoprazole (Protonix) 20 mg Tablet,Delayed Release (Dr/Ec) Active 20 MG PO Daily August 31, 2018 1:00ampotassium chloride 10 meq extended release oral capsule (9 sources)Start: 08-31-2018 End: 57-14-1071dyko 1 capsule by mouth once dailyPotassium Chloride [...] tablet (5 sources)Nonergot Dopamine AgonistStart: 06-30-2023 End: 82-05-3860xmdv 1 tablet by mouth once dailyPramipexole (Mirapex) 1 mg Tablet Discontinued 1 MG PO Daily June 30, 2023 1:00am January 14, 2025 11:13amrosuvastatin calcium 20 mg oral tablet (3 sources)HMG-CoA Reductase InhibitorStart: 03-26-2024 End: 10-03-7687aacj 1 tablet by mouth once dailyRosuvastatin 20 mg tablet Discontinued 20 MG PO Daily March 26, 2024 12:00am October 02, 2024 2:57pm sevelamer carbonate 800 mg oral tablet (15 sources)Phosphate BinderStart: 06-29-2023 End: 43-96-1413hrab 1 tablet by mouth three times daily at mealtimeSevelamer Carbonate (Renvela) 800 mg tablet Discontinued 800 MG PO Three times daily 90 January 18, 2024 9:55am March 26, 2024 12:10pm must administer with a meal/foodsodium chloride 1000 mg oral tablet (5 sources)Start: 08-31-2018 End: 14-07-3157Vlwoei Chloride 1 gram Tablet Discontinued 1000 MG PO 1 to 4 times daily as needed for Electrolyte Replenishment August 31, 2018 1:00am September 04, 2018 8:01amStart: 08-31-2018 End: 50-87-1851Fmqmsv Chloride Discontinued 1000 MG PO 1 to 4 times daily August 31, 2018 1:00am September 04, 2018 8:01amspironolactone 50 mg oral tablet (8 sources)Aldosterone AntagonistStart: 10-02-2024 End: 01-81-8160sldp 1 tablet by mouth twice dailySpironolactone 50 mg tablet Discontinued 50 MG PO Twice daily 60 October 02, 2024 12:00am December 11:14amStart: 05-59-5102ligk 1 tablet by mouth twice dailyspironolactone 100 mg Tab 100 mg = 1 tab(s), Oral, BID, Refills(s) 0 Start Date: 02/12/24 Status: Ord eredStart: 08-31-2018 End: 69-33-5023viuj 2 tablets by mouth once dailySpironolactone 50 mg Tablet Discontinued 100 MG PO Daily August 31, 2018 1:00am June 30, 2023 1:31am Start: 08-31-2018 End: 49-88-2948qrwt 100 mg by mouth once dailySpironolactone Discontinued 100 MG PO Daily August 31, 2018 1:00am June 30, 2023 1:31amtorsemide 100 mg oral tablet (2 sources)Loop DiureticStart: 10-02-2024 End: 96-52-1661Bmffhlqzv 100 mg tablet Discontinued 50 MG PO Twice daily 60 October 02, 2024 12:00am January 14, 2025 11:14amUrea (Ure-Na) 15 gram Powder In Packet (5 sources)Start: 09-04-2018 End: 42-04-8090Puvu (Ure-Na) 15 gram Powder In Packet Discontinued 30 GM PO Daily September 04, 2018 12:00am June 30, 2023 1:30amStart: 09-04-2018 End: 79-82-5368Nxbe (Ure-Na) 15 gram Powder In Packet Discontinued 30 GM PO Daily September 03, 2018 11:00pm June 30, 2023 12:30amStart: 52-17-2610Gvco (Ure-Na) 15 gram Powder In Packet Active 30 GM PO Daily September 04, 2018 12:00amVitamin D 50,000 intl units (1.25 mg) oral capsule (1 source)Start: 23-58-7377rrzu 1 capsule by mouth every weekVitamin D 50,000 intl units (1.25 mg) oral capsule 50,000 International_Unit = 1 cap(s), Oral, qWeek, Refills(s) 0 Start Date: 02/12/24 Status: Ordered Problems Active Problems Problem ClassificationProblemDateDocumented DateEpisodic/ChronicAcute and unspecified renal failure (7 sources)Acute kidney failure, unspecified; Translations: [Acute renal failure syndrome]Onset: 074379-61-3228FxkecktnNhpxv cerebrovascular disease (1 source)Occlusion of cerebral artery with strokeOnset: ChronicAcute posthemorrhagic anemia (1 source)Acute posthemorrhagic anemia; Translations: [ACUTE POSTHEMORRHAGIC ANEMIA]Onset: 04-92-3277CsfvxrkhFmmpahz disorders (2 sources)Anxiety disorder, unspecified; Translations: [Anxiety]Onset: 387767-49-2112IzqtwyiRuzbte; peripheral; and visceral artery aneurysms (1 source)Dissection of vertebral artery; 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]Onset: 01-78-6211TdofuomZegedocbk infection; unspecified site (1 source)Unspecified Escherichia coli [E. coli] as the cause of diseases classified elsewhere; Translations:[UNS E COLI CAUSE DX CLASS ELSEWHERE]Onset: 78-87-7058BirtiyxkZcnmyjn kidney disease (20 sources)Chronic kidney disease stage 3; Translations: [Chronic kidney disease, stage 3 (moderate)]Onset: 185759-30-0093EinupyvYocjfmn on above: Problem List clean-up per request of Phys. EHR CmteChronic obstructive pulmonary disease and bronchiectasis (1 source)Chronic obstructive pulmonary disease, unspecified; Translations: [COPD UNSPECIFIED]Onset: 18-63-3734OwmxzwvEhmlfovbhntn of device; implant or graft (5 sources)Other mechanical complication of infusion catheter, initial encounter; Translations: [Other mechanical complication of other cardiac and vascular devices and implants, initial encounter]Onset: 38-55-9482Dgmdhyou Congestive heart failure; nonhypertensive (20 sources)Congestive heart failure; Translations: [Heart failure, unspecified] Onset: 06-16-2021 Resolved: 51-80-6222McmgyvdLufpveg on above:Problem List clean-up per request of Phys. 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; Translations: [SEC SIDEROBLASTIC ANEMIA DUE DZ]Onset: 42-35-5022SusbwfkYcolndiuws and other anemia (7 sources)Anemia; Translations: [Anemia, unspecified]77-31-7908Gitstttj Deficiency and other anemia (5 sources)Anemia, unspecified; Translations: [Anemia, unspecified]Onset: 106687-87-3839KgxljigjPvcdltdqbe and other anemia (1 source)Iron deficiency anemia, unspecified; Translations: [IRON DEFICIENCY ANEMIA UNSPECIFIED]Onset: 04-48-8444WwwpfxqwP Codes: Adverse effects of medical drugs (1 source)Adverse effect of vbrlfafjejp-tgjjrqvctx-bzqhyx inhibitors, initial encounter; Translations: [ADVERSE EFFECT ACEI INITIAL ENCNTR]Onset: 09-22-2022 EpisodicEpilepsy; convulsions (1 source)Epilepsy, unspecified, not intractable, without status epilepticus; Translations: [EPILEPSY UNS NOTINTRACT W/O SE]Onset: 54-30-9129JphyyrnObmnuqovqs disorders (2 sources)Gastro-esophageal reflux disease without esophagitis; Translations: [Gastroesophageal reflux disease]Onset: 058288-54-9229UypdxlxLevgfdmlq hypertension (16 sources)Hypertensive disorder; Translations: [Essential (primary) hypertension]Onset: 302371-26-9043AjseyinUwjpo and electrolyte disorders (20 sources)Hypervolemia; Translations: [Fluid overload, unspecified]Onset: 06-16-2021 Resolved: 41-83-2510CnljxqjkSfzo and other crystal arthropathies (1 source)Gouty arthropathyOnset: 549738-61-6181TecfkjzNdtoadcg; including migraine (12 sources)Refractory migraine with aura; Translations: [Persistent migraine aura without cerebral infarction,intractable, without status migrainosus]Onset: 70-68-3842AmjswybQtgcjtuh; including migraine (5 sources)Headache; including migraine; Translations: [HEADACHE UNSPECIFIED] Onset: 29-49-6825Vidma valve disorders (6 sources)Rheumatic disorders of both mitral and tricuspid valves; Translations: [Rheumatic tricuspid insufficiency]Onset: ChronicHypertension with complications and secondary hypertension (20 sources)Hypertensive renal disease; Translations: [Hypertensive chronic kidney disease with stage 1 throughstage 4 chronic kidney disease, or unspecified chronic kidney disease]Onset: 06-16-2021 Resolved: 64-94-2767DjmkuozIsmkumh on above:Problem List clean-up per request of Phys. EHR CmteJoint disorders and dislocations; trauma-related (1 source)Subluxation of unspecified cervical vertebrae, initial encounter; Translations: [Subluxation of unspecified cervical vertebrae, initial encounter] Onset: 95-73-9375ZzxwrvpxCfpqrsw and fatigue (10 sources)Asthenia; Translations: [Weakness]Onset: EpisodicMenopausal disorders (4 sources)Postmenopausal bleeding; Translations: [POSTMENOPAUSAL BLEEDING] Onset: 23-42-3658XxusqzqAlxu disorders (1 source)Depressive disorderOnset: 919531-41-1438WuwwajwSsjp disorders (1 source)Mood disorders; Translations: [DEPRESSION UNSPECIFIED]Onset: 23-58-7747Pdcszu and vomiting (9 sources)Nausea; Translations: [Nausea]EpisodicNutritional deficiencies (20 sources)Vitamin D deficiency; Translations: [Vitamin D deficiency, unspecified]Onset: 01-11-2021 Resolved: 89-41-1598OtzouidZsxqhoqekpfyjj (4 sources)Bilateral primary osteoarthritis of hip; Translations: [Unilateral primary osteoarthritis, left knee]Onset: 89-40-5143BawidjsPmbquvsshhvr (2 sources)Age-related osteoporosis without current pathological fracture; Translations: [Osteoporosis]Onset: 717828-88-8385CugwiiyErine aftercare (5 sources)Polypharmacy ; Translations: [Other correction (current) drug therapy] 72-09-9596MfwayszlNnnpj aftercare (1 source)Other correction (current) drug therapy; Translations: [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 THERAPY]Onset: 82-12-7490XvlggykvYhnoc and ill-defined heart disease (1 source)Mwmucxvgjleh94-26-2326FnjuswyOicnf and ill-defined heart disease (1 source)Left atrial enlargementOnset: 536365-16-2520TjruqhrAkpul circulatory disease (1 source)Personal history of transient ischemic attack (TIA), and cerebral infarction without residual deficits; Translations: [PERS HX TIA AND CI NO RESID DEFICIT]Onset: 90-90-9691CjictzamOhevq circulatory disease (1 source)Difficult venous fpvbly63-70-0934NftmhiyhTrpwj circulatory disease (1 source)Vascular drfefcuymipkf96-57-4393LtowmbgtMrjbf connective tissue disease (1 source)Presence of unspecified artificial knee joint; Translations: [PRESENCE UNS ARTIFICIAL KNEE JOINT]Onset: 07-52-4237EsbnouhSmuhr connective tissue disease (1 source)Myalgia, unspecified site; Translations: [MYALGIA UNSPECIFIED SITE] Onset: 07-42-8122SnofarpmMkokc connective tissue disease (1 source)Neuralgia and neuritis, unspecified; Translations: [NEURALGIA AND NEURITIS UNSPECIFIED]Onset: 72-73-7860ZevikrvbYzrmf connective tissue disease (3 sources)History of cervical spine fusion; Translations: [Arthrodesis status] 64-46-0653JpauslhxXtzox diseases of kidney and ureters (9 sources)Hyperparathyroidism due to renal insufficiency; Translations: [Secondary hyperparathyroidism of renal origin]ChronicOther diseases of kidney and ureters (7 sources)Secondary hyperparathyroidism of renal origin; Translations: [Secondary hyperparathyroidism (of renal origin)]Onset: 06-16-2021 Resolved: 56-86-2484KdogftbFovzy diseases of kidney and ureters (4 sources)Secondary hyperparathyroidism; Translations: [Secondary hyperparathyroidism of renal origin]00-88-1315BiltgzwXqicw diseases of kidney and ureters (1 source)Disorder of kidney and ureter, unspecified; Translations: [DISORDER KIDNEY AND URETER UNS]Onset: 12-25-9280EwphcsrwZwajr diseases of veins and lymphatics (1 source)Rsmabjueny86-63-2634DoohljjOlmor diseases of veins and lymphatics (3 sources)Lymphedema, not elsewhere classified; Translations: [Lymphedema, not elsewhere classified]Onset: 43-47-6038QrxgfbzFvkdd diseases of veins and lymphatics (1 source)Venous insufficiency (chronic) (peripheral); Translations: [VENOUS INSUFF CHRONIC PERIPHERAL]Onset: 57-73-5100IikmkarbHiyrv diseases of veins and lymphatics (1 source)Peripheral venous uaspwpjwznzro50-22-9494XeiqxxhmVribg ear and sense organ disorders (1 source)Bilateral hearing lossOnset: 888485-24-5196VnpdfxzUlwqg endocrine disorders (18 sources)Hypoglycemia; Translations: [Hypoglycemia, unspecified]ChronicOther endocrine disorders (1 source)Qmjugfhdhxmrrvrfied47-80-2559LqbnocwEdrlk fractures (1 source)Other nondisplaced dens fracture, initial encounter for closed fracture; Translations: [Other nondisplaced dens fracture, initial encounter for closed fracture]Onset: 57-90-0555GllwfbwnFnsop fractures (1 source)Other displaced dens fracture, sequela; Translations: [Other displaced dens fracture, sequela]Onset: 89-09-5812GdrderhoUfahq fractures (1 source)Other displaced fracture of second cervical vertebra, subsequent encounter for fracture with delayed healing; Translations: [Other displaced fracture of second cervical vertebra, subsequent encounterfor fracture with delayed healing]Onset: 07-99-1419IuuhcqgrYyxgk gastrointestinal disorders (1 source)Irritable bowel syndromeOnset: 718379-40-6916UeayovfIvxbt gastrointestinal disorders (9 sources)Diarrhea; Translations: [Diarrhea, unspecified]EpisodicOther gastrointestinal disorders (1 source)Bariatric surgery status; Translations: [BARIATRIC SURGERY STATUS] Onset: 41-41-7596AinrnkylPdsaz gastrointestinal disorders (1 source)H/O: dwvdkaq67-10-2015IypjwfhwDzkft hereditary and degenerative nervous system conditions (1 source)Essential tremorOnset: 930466-44-9187YnyifrwNocst hereditary and degenerative nervous system conditions (1 source)Mild cognitive tbcnsuwh44-82-2841NgtouhqWwnml hereditary and degenerative nervous system conditions (1 source)Restless legsOnset: 930452-03-6503RtvomqcJdvyg lower respiratory disease (4 sources)Shortness of breath; Translations: [SHORTNESS OF BREATH]Onset: 22-64-7439YgosklieOiube nervous system disorders (1 source)Other chronic pain; Translations: [OTHER CHRONIC PAIN]Onset: 50-72-0871OneulrwIhlrl nervous system disorders (4 sources)Chronic pain syndrome; Translations: [CHRONIC PAIN SYNDROME]Onset: 77-25-2504VszymusNdwsx nervous system disorders (1 source)PolyneuropathyOnset: 390717-99-4079NbwykzlUfqwl nervous system disorders (1 source)Paresthesia of skin; Translations: [PARESTHESIA OF SKIN]Onset: 67-34-2852UnsekgjfChjxo non-traumatic joint disorders (2 sources)Other specific arthropathies, not elsewhere classified, left shoulder; Translations: [Other specific arthropathies, not elsewhere classified, left shoulder]Onset: 31-18-5819PkwxwveJxvxn non-traumatic joint disorders (5 sources)Pain in left [...] Translations: [MORBID SEVERE OBES D/T EXCESS ROGER]Onset: 53-67-3056YcribwjBpzrt nutritional; endocrine; and metabolic disorders (1 source)Body mass index (BMI) 34.0-34.9, adult; Translations: [BODY MASS INDEX BMI 34.0-34.9 ADULT]Onset: 82-78-5572KqtkillRsdwi nutritional; endocrine; and metabolic disorders (1 source)Body mass index (BMI) 31.0-31.9, adult; Translations: [BODY MASS INDEX BMI 31.0-31.9 ADULT]Onset: 88-18-5160PfoizqzZtpma nutritional; endocrine; and metabolic disorders (3 sources)Hyperphosphatemia; Translations: [Other disorders of phosphorus metabolism]ChronicOther nutritional; endocrine; and metabolic disorders (1 source)Other disorders of phosphorus metabolismChronicOther nutritional; endocrine; and metabolic disorders (1 source)Body mass index 30+ - -54-4170AoyycmiCoeqr nutritional; endocrine; and metabolic disorders (1 source)Obese class RDX74-21-5901EzmtydtQrojwsukc (2 sources)Flaccid hemiplegia affecting right dominant side; Translations: [Flaccid hemiplegia of right dominant side]Onset: 952553-52-3140Twsajdj Phlebitis; thrombophlebitis and thromboembolism (4 sources)Personal history of other venous thrombosis and embolism; Translations: [H/O: Deep vein thrombosis]Onset: 155300-41-7194Ioaxpwlj Pulmonary heart disease (8 sources)Pulmonary hypertension, unspecified; Translations: [Pulmonary hypertension]Onset: 58-15-9881EvnxqryGuqkdkeah heart disease (1 source)Personal history of pulmonary embolism; Translations: [PERSONAL HISTORY PULMONARY EMBOLISM]Onset: 70-47-1640BoyomukvGcwbmbai codes; unclassified (1 source)Acquired absence of both cervix and uterus; Translations: [ACQUIRED ABSENCE BOTH CERVIX AND UTERUS]Onset: 13-87-5779ZcmcaenoAeiyodfc codes; unclassified (1 source)Acquired absence of other specified parts of digestive tract; Translations: [ACQ ABSENCE OTH PART DIGESTV TRACT]Onset: 00-97-9772Kpusqyzc Residual codes; unclassified (1 source)Edema, unspecified; Translations: [EDEMA UNSPECIFIED]Onset: 10-24-2022 EpisodicResidual codes; unclassified (1 source)Pain, unspecified; Translations: [Pain, unspecified]Onset: 10-13-2023 EpisodicSpondylosis; intervertebral disc disorders; other back problems (20 sources)Cervical spondylosis; Translations: [Spondylosis without myelopathy or radiculopathy, cervical region]Onset: 67-12-6885BtajevvLpqfhfjrwwk; intervertebral disc disorders; other back problems (12 sources)Muscle spasm of back; Translations: [Cervical disc disorder with radiculopathy, unspecified cervical region]Onset: 42-93-7397BtlxtcupGkcpkupvovz injury; contusion (3 sources)Contusion of right wrist, initial encounter; Translations: [Contusion of scalp, initial encounter]Onset: 84-87-3801AbcywjqvNxnglee (1 source)Syncope and collapse; Translations: [Syncope and collapse]Onset: 95-38-3444MpepggmvLabifyo disorders (3 sources)Hypothyroidism, unspecified; Translations: [Hypothyroidism]Onset: 912282-30-4156TsabekfOgtyyjvutecq (4 sources)LOW BACK PAIN, UNSPECIFIED; Translations: [LOW BACK PAIN, UNSPECIFIED]Onset: 75-41-3624Mvfwkxpyuxlk (1 source)PERSONAL HISTORY OF COVID-19; Translations: [PERSONAL HISTORY OF COVID-19]Onset: 16-58-3343Hjlefdanhnfn (1 source)CONTACT W/AND (SUSP) EXPOS COVID-19; Translations: [CONTACT W/AND (SUSP) EXPOS COVID-19]Onset: 43-54-2197Uhwnuorkbtml (1 source)CHRN KIDNEY DISEASE STG 3 UNSP; Translations: [CHRN KIDNEY DISEASE STG 3 UNSP]Onset: 54-64-6603Rplqtxjuwziy (1 source)Abrasion of skin of akijq53-55-5975Qtkoilfgrbqx (1 source)Severe tricuspid valve regurgitationOnset: 110067-70-6282Rkglfac tract infections (1 source)Urinary tract infection, site not specified; Translations: [UTI SITE NOT SPECIFIED]Onset: 51-00-5135Tzrhkwod Past or Other Problems Problem ClassificationProblemDateDocumented DateEpisodic/ChronicChronic kidney disease (6 sources)Chronic kidney disease; Translations: [Chronic kidney disease, stage 3a]Onset: 06-16-2021 Resolved: 06-16-2021 Codes: Fall (1 source)Fall (on) (from) unspecified stairs and steps, initial encounter; Translations: [FALL ON FROM UNS STAIRS STEPS INIT]Onset: 92-86-6941Vszewjln Fracture of upper limb (4 sources)Displaced fracture of triquetrum [cuneiform] bone, right wrist, initial encounter for closed fracture; Translations: [DSPL FX TRIQUETRUM BN RT WR INT ASHWIN]Onset: 02-79-1274ImonwzpyUqipvbcuid disorders (1 source)Hormone replacement therapy; Translations: [HORMONE REPLACEMENT THERAPY]Onset: 69-26-3478NlkxkilhDkrkwcydvdlo breast conditions (1 source)Unspecified lump in the right breast, unspecified quadrant; Translations: [UNS LUMP IN RT BREAST UNS QUADRANT]Onset: 60-65-5135VjutdqewUvhay connective tissue disease (1 source)Other muscle spasm; Translations: [OTHER MUSCLE SPASM]Onset: 51-79-5693WuncbvdyZvgoe connective tissue disease (1 source)FibromyalgiaOnset: 836608-10-6426ZrufafebSweya fractures (1 source)Unspecified displaced fracture of second cervical vertebra, initial encounter for closed fracture; Translations: [Unspecified displaced fracture of second cervical vertebra, initial encounter for closed fracture]Onset: 90-42-0074DjkgtspiAavim injuries and conditions due to external causes (3 sources)Unspecified injury of right wrist, hand and finger(s), initial encounter; Translations: [UNS INJ RTWRIST HAND FINGERS INIT]Onset: 08-06-2022 EpisodicOther injuries and conditions due to external causes (1 source)Other specified injuries of head, initial encounter; Translations: [OTH SPEC INJURIES HEAD INITIAL ENC]Onset: 87-35-1705MyovrcguZanxt lower respiratory disease (1 source)Shortness of breath; Translations: [Shortness of breath]Onset: 04-85-8981LlgvhzmtNmuxd nervous system disorders (1 source)Neurogenic claudicationOnset: [id number] non- traumatic joint disorders (1 source)Pain in unspecified hip; Translations: [PAIN IN UNSPECIFIED HIP]Onset: 95-63-8088LborizxpJkols non-traumatic joint disorders (2 sources)Pain in left shoulder; Translations: [Pain in left shoulder]Onset: 40-27-1844VgyayzpdTdkjl screening for suspected conditions (not mental disorders or infectious disease) (8 sources)Other abnormal and inconclusive findings on diagnostic imaging of breast; Translations: [Encounter for screening mammogram for malignant neoplasm of breast]Onset: 97-87-4795KpzsvyjoNnfdtqvo codes; unclassified (1 source)Edema of lower extremityOnset: 999820-60-5733WdpmuaniBybxkpmf codes; unclassified (1 source)InsomniaOnset: 935103-36-7504OowjgfijIqjhqxi and strains (2 sources)Strain of muscle(s) and tendon(s) of the rotator cuff of left shoulder, initial encounter; Translations: [Strain of muscle(s) and tendon(s) of the rotator cuff of left shoulder, initial encounter]Onset: 70-86-3435Htykvxzs Unclassified (1 source)LOW BACK PAIN, UNSPECIFIED; Translations: [LOW BACK PAIN, UNSPECIFIED] Onset: 10-27-2022 Results Test NameValueInterpretationReference RangeFacilityOffice Visiton 04-28-2025 Follow-up [id number] Mabel Moser 1960 F Date Provider Department Center 04/28/2025 BENJIE LERMA Family History Problem Relation Age of Onset Stroke Mother Heart failure Father Family Status - Relation Status Age at Mother Father Sister Brother Alive Level of Service:59573 [place] OFFICE/OUTPATIENT ESTABLISHED MOD MDM 30 MIN (25) [facility] [id number] Mabel Moser 1960 F Date Provider Department Center 04/08/2025 CARLOS MENJIVAR MP [facility] Family History Problem Relation Age of Onset Stroke Mother Heart failure Father Family Status - Relation Status Age at Mother Father Sister Brother Alive Level of Service:40614 [place] OFFICE/OUTPATIENT ESTABLISHED MOD MDM 30 MIN (57) Reason for Visit and Comments: Follow-up [[id number]]NormalPremier Health [facility] CenterLaboratory - Chemistry and Chemistry - challengeOrdered By: Raeann Kirkpatrick on 01-02-2025 Bilirubin Ql (U)NegativeNEGATIVEDayton Osteopathic HospitalGlucose (U) [Mass/Vol]NegativeNEGATIVEDayton Osteopathic HospitalKetones Ql (U) NegativeNEGKettering Health HamiltonpH (U)7.0 [pH]5.0-9.0[facility] [facility] Hospitalpecific gravity (U) [Rel density]<=1.005Abnormal 1.005-1.025Day[facility] Osteopathic HospitalUrobilinogen Qn (U)0.2 {Ligia'U}/dL0.2-1.0[facility] HospitalMagnesium [Mass/Vol]2.9 mg/dLHigh1.8-2.4FWVUMedicine Barnesville HospitalUrate [Mass/Vol]5.8 mg/dL 2.6-6.0[facility] HospitalLaboratory - Specimen informationOrdered By: Raeann Kirkpatrick on 91-33-4752Jrnpcxcdne (U)CLEARCLEARFWVUMedicine Barnesville HospitalColor (U)LT. YELLOWYELLOWDayton Osteopathic Hospital Laboratory - UrinalysisOrdered By: Raeann Kirkpatrick on 31-98-9693Kqizuduyz esterase Test strip Ql (U)TRACEAbnormalNEGKettering Health HamiltonNitrite Ql (U)NegativeNEGKettering Health HamiltonProtein (U) [Mass/Vol] 11.2 mg/dL<=11.9[facility] HospitalProtein Ql (U)NegativeNEG/TRACE [facility] HospitalMicroalbumin [Mass/volume] in UrineOrdered By: Raeann Kirkpatrick on 83-63-3480Anrjoie DL <= 20 mg/L (U) [Mass/Vol]mg/dL<=30.0 [facility] HospitalNo Panel InformationOrdered By: Raeann Kirkpatrick on 77-23-8973Srcuo Occult BloodTRACE-INEGATIVEDayton Osteopathic Hospital Urine Random Rtsbqxtjos86.82 mg/dL20.00-300.00[facility] 25-Hydroxy Vitamin D Total69.4 ng/mLDayton Osteopathic HospitalComment on above:<20 ng/mL Vit D mzseqekdz21-<30 ng/mL Vit D -602 ng/mL Vit D sufficient>100 ng/mL Potential ToxicityParathyroid Hormone (Intact)87 pg/mL Qcznaukl14-22QpxowjcekDayton Osteopathic HospitalComment on above:Performed at: [facility] [id number] Director: Josué Crouch PhD, Phone: [phone] Level5.2 mg/dLHigh2.6-4.7FWVUMedicine Barnesville HospitalUrine protein/creatinine ratioOrdered By: Raeann Kirkpatrick on 60-64-5596Ucbqbfd/Creatinine (U) [Ratio]0.32[facility] Office Visiton 60-11-9844Nezthu-up [id number] Mabel Moser 1960 F Date Provider Department Center 10/11/2024 BENJIE LERMA Hos Family History Problem Relation Age of Onset Stroke Mother Heart failure Father Family Status - Relation Status Age at Mother Father Sister Brother Alive Level of Service:52857 [place] OFFICE/OUTPATIENT ESTABLISHED LOW MDM 20 MINNormal [facility] CenterFollow-Upon [id number] Mabel Moser 1960 F Date Provider Department Center 09/09/2024 MATTHEW MONTEIRO MP [facility] MP[facility]TH[facility] Family History Family history unknown: Yes Level of Service:37556 [place] OFFICE/OUTPATIENT ESTABLISHED LOW MDM 20 MIN (GC) NormalUnElyria Memorial HospitalLaboratory - Chemistry and Chemistry - challengeon 68-22-8950Hognhoelv Ql (U)NegativeNEGATIVEDayton Osteopathic HospitalGlucose (U) [Mass/Vol]NegativeNEGATIVEDayton Osteopathic Hospital Ketones Ql (U)NegativeNEGATIVEDayton Osteopathic HospitalpH (U)5.5 [pH] 5.0-9.0[place] [facility] Hospitalpecific gravity (U) [Rel density]1.010 1.005-1.025Day[facility]opathic HospitalUrobilinogen Qn (U)0.2 {Ligia'U}/dL0.2-1.0[facility] HospitalMagnesium [Mass/Vol]2.0 mg/dL1.8-2.4FWVUMedicine Barnesville HospitalUrate [Mass/Vol]7.8 mg/dLHigh 2.6-6.0[facility] HospitalLaboratory - Specimen informationon 15-13-5042Knpcrhfhxl (U)CLEARCLEARFWVUMedicine Barnesville HospitalColor (U)LT. YELLOWYELLOWDayton Osteopathic HospitalLaboratory - Urinalysison 85-10-9159Qvbjpdlrd esterase Test strip Ql (U)NegativeNEGATIVEDayton Osteopathic HospitalNitrite Ql (U)NegativeNEGATIVEDayton Osteopathic Hospital Protein (U) [Mass/Vol]7.6 mg/dL<=11.9[facility] HospitalProtein Ql (U)NegativeNEG/TRACEDayton Osteopathic HospitalMicroalbumin [Mass/volume] in Urineon 41-14-2219Sfzdmek DL <= 20 mg/L (U) [Mass/Vol]Microalbumin [Mass/volume] in Urine<=30.0Day[facility]opathic HospitalNo Panel Informationon 04-39-0368Vvmkt Occult BloodNegativeNEGKettering Health HamiltonUrine Random Qktzxyjhjv81.27 mg/dLLow20.00-300.00[facility]25-Hydroxy Vitamin D Total49.9 ng/mLDayton Osteopathic HospitalComment on above:<20 ng/mL Vit D eujyrsovk74-<30 ng/mL Vit D ucobzwwztznd15-942 ng/mL Vit D sufficient>100 ng/mL Potential Toxicity Parathyroid Hormone (Intact)266 pg/kMOhdtdiiy42-42EcfhwuhifDayton Osteopathic HospitalComment on above:Performed at: [place] [address] [place], [place] [id number] Director: Josué Crouch PhD, Phone: [phone] Phosphorus Level5.3 mg/dLHigh2.6-4.7FWVUMedicine Barnesville HospitalUrine protein/creatinine ratioon 78-82-0346Blheqac/Creatinine (U) [Ratio]Urine protein/creatinine ratioDayton Osteopathic HospitalAmbulatory Visit Summaryon 71-10-4294Nuifvaawlm Visit SummaryAmbulatory Visit Summary MABEL MOSER :1960 [...] mg Tab) butorphanol (butorphanol 10 mg/mL Nasal Combs) cyanocobalamin (cyanocobalamin 1000 mcg/mL Inj) desvenlafaxine (desvenlafaxine [...] Unchanged butorphanol (butorphanol 10 mg/ mL Nasal Combs) 1 Sprays Nasal Inhalation Every day as [...] Benign essential hypertension Bilate (more content not included)...NormalLake Norman Regional Medical Centerer [facility] Orthopaedic InstituteMagnesium on 58-89-2806Iutbiteuy [Mass/Vol]2.0 mg/dLNormal1.6-2.4[facility] CenterComment on above:Performed By: #### CDP, CMPX #### [employer] [address] [place] [address] Lamination Machine Operator: Michael Chen [facility] with Diffon 13-50-1479Grb. Basophil0.00 k/uL Normal0.0-0.2MUniversity of California, Irvine Medical CenterComment on above:Performed By: #### CDP, CMPX #### [facility] [address] [place] [address] Lamination Machine Operator: MDAbs. BridgetImm.Granulocyte0.09 k/uLNormal0.00-0.30[facility] Health CenterComment on above:Performed By: #### CDP, CMPX #### [facility] [address] [place] [address] Lamination Machine Operator: Laz Gill.Neutrophil (Seg)6.87 k/uLNormal1.8-7.7Ohio[facility] Health CenterComment on above:Performed By: #### CDP, CMPX #### [address] [address] Lamination Machine Operator: Michael Chen MDBasophils/100 WBC (Bld)0 %Normal0-2MUniversity of California, Irvine Medical CenterComment on above:Performed By: #### CDP, CMPX #### [address] [address] Lamination Machine Operator: Michael Chen MDEosinophils (Bld) [#/Vol]0.26 10*3/uLNormal 0.0-0.4[facility] Health CenterComment on above:Performed By: #### CDP, CMPX #### [address] [address] Lamination Machine Operator: LIANA Gillosinophils/100 WBC (Bld)3 %Normal1-4[facility] Health CenterComment on above:Performed By: #### CDP, CMPX #### [facility] [employer] [address] [place] [address] Lamination Machine Operator: Rock Gillture granulocytes/100 WBC (Bld)1 %Btra9PatftOhiohealth Nelsonville Health CenterComment on above:Performed By: #### CDP, CMPX #### [facility] [address] [place] [address] Lamination Machine Operator: Michael Chen MDLymphocytes (Bld) [#/Vol]0.95 10*3/uLLow1.0-4.8 [facility] CenterComment on above:Performed By: #### CDP, CMPX #### [address] [address] Lamination Machine Operator: Michael Chen MDLymphocytes/100 WBC (Bld)11 %Mft48-07VwyltOhiohealth Nelsonville Health CenterComment on above:Performed By: #### CDP, CMPX #### [address] [address] Lamination Machine Operator: WALTER Gillonocytes (Bld) [#/Vol]0.43 10*3/uLNormal0.1-0.8 [facility] CenterComment on above:Performed By: #### CDP, CMPX #### [address] [address] Lamination Machine Operator: WALTER Gillonocytes/100 WBC (Bld)5 %Normal1-7Ohio[facility] Health CenterComment on above:Performed By: #### CDP, CMPX #### [facility] [employer] [address] [place] [address] Lamination Machine Operator: Michael Chen MDMorphology Pedro (Bld) [Interp]NormalNormalOhiohealth Nelsonville Health CenterComment on above:Performed By: #### CDP, CMPX #### [facility] [employer] [address] [place] [address] Lamination Machine Operator: Michael Chen MDNeutrophil (Seg)80 %Sqld85-56YffwhOhiohealth Nelsonville Health CenterComment on above:Performed By: #### CDP, CMPX #### [facility] [address] [place] [address] Lamination Machine Operator: Kwesi Gill Fluoresc.288 k/rTWbvhev085-283SciagOhiohealth Nelsonville Health CenterComment on above:Performed By: #### CDP, CMPX #### [address] [address] Lamination Machine Operator: CHIP GillLT, Immature Fract.1.5 %Normal1.1-10.3MUniversity of California, Irvine Medical CenterComment on above:Performed By: #### CDP, CMPX #### [address] [address] Lamination Machine Operator: Michael Chen MDErythrocyte distribution width (RBC) [Ratio]13.6 %Eedxne38.8-14.4[facility] Health CenterComment on above:Performed By: #### CDP, CMPX #### [address] [address] Lamination Machine Operator: Michael Chen MDHematocrit (Bld) [Volume fraction]25.9 %Low 36.3-47.1MUniversity of California, Irvine Medical CenterComment on above:Performed By: #### CDP, CMPX #### [address] [address] Lamination Machine Operator: Michael Chen MDHemoglobin (Bld) [Mass/Vol]7.8 g/dLLow11.9-15.1 [facility] CenterComment on above:Performed By: #### CDP, CMPX #### [address] [address] Lamination Machine Operator: WALTER GillCH (RBC) [Entitic mass]29.8 dfQrvmsb24.2-33.5 [facility] CenterComment on above:Performed By: #### CDP, CMPX #### [address] [address] Lamination Machine Operator: WALTER GillCHC (RBC) [Mass/Vol]30.1 g/hPPsekrk05.4-34.8 [facility] CenterComment on above:Performed By: #### CDP, CMPX #### [address] [address] Lamination Machine Operator: WALTER GillCV (RBC) [Entitic vol]98.9 xXXcilxq79.6-102.9 [facility] CenterComment on above:Performed By: #### CDP, CMPX #### [address] [address] Lamination Machine Operator: BRIANNA Gill Automated0.0 per 100 WBCNormal0.0Ohio[facility] Nelson[facility] Health CenterComment on above:Performed By: #### CDP, CMPX #### [address] [address] Lamination Machine Operator: Segun Gilltelet CountSee Reflexed IPF ResultNormal 138-453Ohiohealth Nelsonville Health CenterComment on above:Performed By: #### CDP, CMPX #### [address] [address] Lamination Machine Operator: KATHY Gill (Bld) [#/Vol]2.62 10*6/uLLow3.95-5.11Ohio[facility] Health CenterComment on above:Performed By: #### CDP, CMPX #### [address] [address] Lamination Machine Operator: SONYA Gill (Bld) [#/Vol]8.6 10*3/uLNormal3.5-11.3MUniversity of California, Irvine Medical CenterComment on above:Performed By: #### CDP, CMPX #### [address] [address] Lamination Machine Operator: JUAN Gill HEAD NECK W CONTRASTon 59-14-7369GRJ HEAD NECK W CONTRASTEXAMINATION: CTA OF THE [...] Signed by: Flavio Pierson MD 01/29/24 Final resultNormalOhiohealth Nelsonville Health CenterComp Metabolic Pr/rfx MGon 33-89-9686Fznzomb [Mass/Vol]3.0 g/dLLow3.5-5.2Mkettering health behavioral medical centery [facility] Comment on above:Performed By: #### CDP, CMPX #### [facility] [employer] [address] [place] [address] Lamination Machine Operator: Michael Cehn MDAlbumin/Glob Ratio1.8Evbrpr0.0-2.5Ohio[facility] Health CenterComment on above:Performed By: #### CDP, CMPX #### [facility] [employer] [address] [place] [address] Lamination Machine Operator: Antione Gillkaline Qjdl369 U/XWcmc52-785AjgonOhiohealth Nelsonville Health CenterComment on above:Performed By: #### CDP, CMPX #### [facility] [employer] [address] [place] [address] Lamination Machine Operator: Michael Chen MDALT [Catalytic activity/Vol]U/RQgx69-59MhfslOhiohealth Nelsonville Health CenterComment on above:Performed By: #### CDP, CMPX #### [facility] [employer] [address] [place] [address] Lamination Machine Operator: Michael Chen MDAnion gap [Moles/Vol]11 mmol/LNormal9-16[facility] CenterComment on above:Performed By: #### CDP, CMPX #### [facility] [address] [place] [address] Lamination Machine Operator: Michael Chen MDAST [Catalytic activity/Vol]27 U/ULhlygr90-19 [facility] CenterComment on above:Performed By: #### CDP, CMPX #### [facility] [address] [place] [address] Lamination Machine Operator: Michael Chen MDBilirubin [Mass/Vol]0.2 mg/dLNormal0.00-1.20 [facility] CenterComment on above:Performed By: #### CDP, CMPX #### [address] [address] Lamination Machine Operator: RAH Gillalcium [Mass/Vol]8.0 mg/dLLow8.6-10.4[facility] Health CenterComment on above:Performed By: #### CDP, CMPX #### [facility] [employer] [address] [place] [address] Lamination Machine Operator: RAH Gillhloride [Moles/Vol]101 mmol/QFngkcx21-776TrfwwOhiohealth Nelsonville Health CenterComment on above:Performed By: #### CDP, CMPX #### [facility] [employer] [address] [place] [address] Lamination Machine Operator: Michael Chen MDCO2 [Moles/Vol]19 mmol/VLgy56-15BeayiOhiohealth Nelsonville Health CenterComment on above:Performed By: #### CDP, CMPX #### [facility] [employer] [address] [place] [address] Lamination Machine Operator: RAH Gillreatinine [Mass/Vol]1.6 mg/dLHigh0.50-0.90[facility] Health CenterComment on above:Performed By: #### CDP, CMPX #### [facility] [employer] [address] [place] [address] Lamination Machine Operator: Michael Chen MDGFR/1.73 sq M.predicted among non-blacks MDRD (S/P/Bld) [Vol rate/Area]38 mL/min/{1.73_m2}Low>60MerCollege HospitalComment on above:Result Comment: These results are [...] By: #### CDP, CMPX #### [facility] [address] [place] [address] Lamination Machine Operator: Michael Chen MDGlucose [Mass/Vol]90 mg/tTRbwobq71-42BbxeqUniversity of California, Irvine Medical CenterComment on above:Performed By: #### CDP, CMPX #### [facility] [address] [place] [address] Lamination Machine Operator: Michael Chen MDPotassium [Moles/Vol]4.4 mmol/LNormal3.7-5.3 [facility] CenterComment on above:Performed By: #### CDP, CMPX #### [facility] [address] [place] [address] Lamination Machine Operator: Michael Chen MDProtein [Mass/Vol]5.4 g/dLLow6.6-8.7[facility] Health CenterComment on above:Performed By: #### CDP, CMPX #### [facility] [employer] [address] [place] [address] Lamination Machine Operator: Michael Chne MDSodium [Moles/Vol]131 mmol/TYgt852-172ArwnqOhiohealth Nelsonville Health CenterComment on above:Performed By: #### CDP, CMPX #### [facility] [employer] [address] [place] [address] Lamination Machine Operator: Michael Chen MDUrea nitrogen [Mass/Vol]46 mg/dLHigh8-23[facility] CenterComment on above:Performed By: #### CDP, CMPX #### [facility] [employer] [address] [place] [address] Lamination Machine Operator: Michael Chen MDMagnesiumon 78-67-1658Qenxmzhiu [Mass/Vol]2.1 mg/dLNormal1.6-2.4[facility] CenterComment on above:Performed By: #### MG #### [facility] [address] [place] [address] Lamination Machine Operator: Ismael Gill Metab w/rfx MGon 52-82-6393Olzcj gap [Moles/Vol]10 mmol/LNormal9-16[facility] CenterComment on above: Performed By: #### CDP, CMPX #### [address] [address] Lamination Machine Operator: Michael Chen MDCalcium [Mass/Vol]7.5 mg/dLLow8.6-10.4[facility] Health CenterComment on above:Performed By: #### CDP, CMPX #### [facility] [address] [place] [address] Lamination Machine Operator: Michael Chen MDChloride [Moles/Vol]101 mmol/WAisbks00-274JgqmtOhiohealth Nelsonville Health CenterComment on above:Performed By: #### CDP, CMPX #### [facility] [address] [address] Lamination Machine Operator: Michael Chen MDCO2 [Moles/Vol]22 mmol/BYpwvui57-45EdwomOhiohealth Nelsonville Health CenterComment on above:Performed By: #### CDP, CMPX #### [facility] [address] [place] [address] Lamination Machine Operator: RAH Gillreatinine [Mass/Vol]1.8 mg/dLHigh0.50-0.90[facility] Health CenterComment on above:Performed By: #### CDP, CMPX #### [facility] [address] [place] [address] Lamination Machine Operator: Michael Madoff, MDGFR/1.73 sq M.predicted among non-blacks MDRD (S/P/Bld) [Vol rate/Area]33 mL/min/{1.73_m2}Low>60[facility] Health CenterComment on above:Result Comment: These results are [...] tubular secretion.Performed By: #### CDP, CMPX #### [facility] [employer] [address] [place] [address] Lamination Machine Operator: Michael Chen MDGlucose [Mass/Vol]92 mg/xCDoisqh54-14SjxajUniversity of California, Irvine Medical CenterComment on above:Performed By: #### TERESA, CMPX #### [facility] [employer] [address] [place] [address] Lamination Machine Operator: CHIP Gillotassium [Moles/Vol]4.6 mmol/LNormal3.7-5.3 [facility] CenterComment on above:Performed By: #### CDP, CMPX #### [facility] [address] [place] [address] Lamination Machine Operator: SHALINI Gillodium [Moles/Vol]133 mmol/FLvf320-185DojorOhiohealth Nelsonville Health CenterComment on above:Performed By: #### CDP, CMPX #### [facility] [address] [place] [address] Lamination Machine Operator: Michael Chen MDUrea nitrogen [Mass/Vol]46 mg/dLHigh8-23[facility] CenterComment on above:Performed By: #### CDP, CMPX #### [facility] [employer] [address] [place] [address] Lamination Machine Operator: RAH Gill with Diffon 73-51-2873Vrz. Basophil<0.03 Normal0.00-0.20[facility] Health CenterComment on above:Performed By: #### CDP, CMPX #### [facility] [address] [place] [address] Lamination Machine Operator: Laz Gill.Imm.Granulocyte0.13 k/uLNormal0.00-0.30[facility] Health CenterComment on above:Performed By: #### CDP, CMPX #### [facility] [address] [place] [address] Lamination Machine Operator: Laz Gill.Neutrophil (Seg)4.37 k/uLNormal1.50-8.10 [facility] CenterComment on above:Performed By: #### CDP, CMPX #### [facility] [employer] [address] [place] [address] Lamination Machine Operator: Michael Chen MDBasophils/100 WBC (Bld)0 %Normal0-2MUniversity of California, Irvine Medical CenterComment on above:Performed By: #### CDP, CMPX #### [facility] [employer] [address] [place] [address] Lamination Machine Operator: Michael Chen MDEosinophils (Bld) [#/Vol]0.25 10*3/uLNormal 0.00-0.44[facility] Health CenterComment on above:Performed By: #### CDP, CMPX #### [facility] [address] [place] [address] Lamination Machine Operator: Michael Chen MDEosinophils/100 WBC (Bld)4 %Normal1-4[facility] CenterComment on above:Performed By: #### CDP, CMPX #### [facility] [employer] [address] [place] [address] Lamination Machine Operator: Michael Madoff, MDImmature granulocytes/100 WBC (Bld)2 %Luws7ZizunOhiohealth Nelsonville Health CenterComment on above:Performed By: #### CDP, CMPX #### [address] [address] Lamination Machine Operator: Kimmy Gillmphocytes (Bld) [#/Vol]1.15 10*3/uLNormal 1.10-3.70[facility] Health CenterComment on above:Performed By: #### CDP, CMPX #### [address] [address] Lamination Machine Operator: Kimmy Gillmphocytes/100 WBC (Bld)18 %Swp10-83DhkdlOhiohealth Nelsonville Health CenterComment on above:Performed By: #### CDP, CMPX #### [address] [address] Lamination Machine Operator: WALTER Gillonocytes (Bld) [#/Vol]0.59 10*3/uLNormal 0.10-1.20[facility] Health CenterComment on above:Performed By: #### CDP, CMPX #### [address] [address] Lamination Machine Operator: WALTER Gillonocytes/100 WBC (Bld)9 %Normal3-12[facility] Health CenterComment on above:Performed By: #### CDP, CMPX #### [address] [address] Lamination Machine Operator: Michael Chen MDNeutrophil (Seg)67 %Gtob28-62OnqmoOhiohealth Nelsonville Health CenterComment on above:Performed By: #### CDP, CMPX #### [address] [address] Lamination Machine Operator: Michael Chen MDErythrocyte distribution width (RBC) [Ratio]13.6 %Qrldme01.8-14.4[facility] Health CenterComment on above:Performed By: #### CDP, CMPX #### [address] [address] Lamination Machine Operator: Michael Chen MDHematocrit (Bld) [Volume fraction]24.0 %Low 36.3-47.1MUniversity of California, Irvine Medical CenterComment on above:Performed By: #### CDP, CMPX #### [place] [address] Lamination Machine Operator: Michael Chen MDHemoglobin (Bld) [Mass/Vol]7.1 g/dLLow11.9-15.1 [facility] CenterComment on above:Performed By: #### CDP, CMPX #### [place] [address] Lamination Machine Operator: WALTER GillCH (RBC) [Entitic mass]29.6 orWxlsor30.2-33.5 [facility] CenterComment on above:Performed By: #### TERESA, CMPX #### [place] [address] Lamination Machine Operator: WALTER GillCHC (RBC) [Mass/Vol]29.6 g/sPEmxdkb99.4-34.8 [facility] CenterComment on above:Performed By: #### CDP, CMPX #### [place] [address] Lamination Machine Operator: WALTER GillCV (RBC) [Entitic vol]100.0 zHVimlla28.6-102.9 [facility] CenterComment on above:Performed By: #### CDP, CMPX #### [address] [address] Lamination Machine Operator: Michael Chen MDNRBC Automated0.0 per 100 WBCNormal0.0[facility] CenterComment on above:Performed By: #### CDP, CMPX #### [address] [address] Lamination Machine Operator: Kwesi Gill mean volume (Bld) [Entitic vol]9.2 fL Normal8.1-13.5[facility] CenterComment on above:Performed By: #### CDP, CMPX #### [address] [address] Lamination Machine Operator: Segun iGlltelets (Bld) [#/Vol]222 10*3/bJSxgwrk871-162 [facility] CenterComment on above:Performed By: #### CDP, CMPX #### [address] [address] Lamination Machine Operator: Michael Chen MDRBC (Bld) [#/Vol]2.40 10*6/uLLow3.95-5.11[facility] CenterComment on above:Performed By: #### TERESA, CMPX #### [address] [address] Lamination Machine Operator: Michael Chen MDWBC (Bld) [#/Vol]6.5 10*3/uLNormal3.5-11.3MUniversity of California, Irvine Medical CenterComment on above:Performed By: #### CDP, CMPX #### [address] [address] Lamination Machine Operator: Michael Chen MDMagnesiumon 37-41-0097Pmrsqigaf [Mass/Vol]1.6 mg/dLNormal1.6-2.4[facility] CenterComment on above:Performed By: #### CDP, CMPX #### [address] [address] Lamination Machine Operator: Vonnie Gillsic Metab w/rfx MGon 03-69-4985Lurhn gap [Moles/Vol]11 mmol/LNormal9-16[facility] CenterComment on above: Performed By: #### CDP, CMPX #### [facility] [employer] [address] [place] [address] Lamination Machine Operator: ARH Gillalcium [Mass/Vol]7.4 mg/dLLow8.6-10.4[facility] CenterComment on above:Performed By: #### CDP, CMPX #### [facility] [employer] [address] [place] [address] Lamination Machine Operator: RAH Gillhloride [Moles/Vol]102 mmol/CMnmghm28-428UmfviOhiohealth Nelsonville Health CenterComment on above:Performed By: #### CDP, CMPX #### [facility] [employer] [address] [place] [address] Lamination Machine Operator: Michael Chen MDCO2 [Moles/Vol]21 mmol/AJztlii96-99VzizuOhiohealth Nelsonville Health CenterComment on above:Performed By: #### TERESA, CMPX #### [facility] [employer] [address] [place] [address] Lamination Machine Operator: RAH Gillreatinine [Mass/Vol]1.6 mg/dLHigh0.50-0.90[facility] CenterComment on above:Performed By: #### CDP, CMPX #### [facility] [address] [place] [address] Lamination Machine Operator: Michael Chen MDGFR/1.73 sq M.predicted among non-blacks MDRD (S/P/Bld) [Vol rate/Area]36 mL/min/{1.73_m2}Low>60MerCollege HospitalComment on above:Result Comment: These results are [...] tubular secretion.Performed By: #### TERESA, CMPX #### [place] [address] Lamination Machine Operator: Michael Chen MDGlucose [Mass/Vol]169 mg/zZCzjg50-62GujoyUniversity of California, Irvine Medical CenterComment on above:Performed By: #### CDP, CMPX #### [place] [address] Lamination Machine Operator: Michael Chen MDPotassium [Moles/Vol]4.4 mmol/LNormal3.7-5.3 [facility] CenterComment on above:Performed By: #### TERESA, CMPX #### [place] [address] Lamination Machine Operator: SHALINI Gillodium [Moles/Vol]134 mmol/PFsz053-559HniqhOhiohealth Nelsonville Health CenterComment on above:Performed By: #### TERESA, CMPX #### [place] [address] Lamination Machine Operator: Michael Chen MDUrea nitrogen [Mass/Vol]42 mg/dLCity Hospital8-23[facility] CenterComment on above:Performed By: #### TERESA, CMPX #### [place] [address] Lamination Machine Operator: ROBERT Gill with Diffon 67-64-3773Jtr. Basophil<0.03 Normal0.00-0.20[facility] CenterComment on above:Performed By: #### TERESA, CMPX #### [place] [address] Lamination Machine Operator: Laz Gill.Imm.Granulocyte0.06 k/uLNormal0.00-0.30[facility] CenterComment on above:Performed By: #### CDP, CMPX #### [place] [address] Lamination Machine Operator: Laz Gill.Neutrophil (Seg)5.93 k/uLNormal1.50-8.10 [facility] CenterComment on above:Performed By: #### CDP, CMPX #### [place] [address] Lamination Machine Operator: Michael Chen MDBasophils/100 WBC (Bld)0 %Normal0-2MUniversity of California, Irvine Medical CenterComment on above:Performed By: #### CDP, CMPX #### [place] [address] Lamination Machine Operator: Michael Chen MDEosinophils (Bld) [#/Vol]0.17 10*3/uLNormal 0.00-0.44[facility] CenterComment on above:Performed By: #### CDP, CMPX #### [place] [address] Lamination Machine Operator: Michael Chen MDEosinophils/100 WBC (Bld)2 %Normal1-4[facility] CenterComment on above:Performed By: #### CDP, CMPX #### [place] [address] Lamination Machine Operator: Michael Chen MDErythrocyte distribution width (RBC) [Ratio]13.8 %Holdqg38.8-14.4[facility] CenterComment on above:Performed By: #### CDP, CMPX #### [place] [address] Lamination Machine Operator: Michael Chen MDHematocrit (Bld) [Volume fraction]26.3 %Low 36.3-47.1MUniversity of California, Irvine Medical CenterComment on above:Performed By: #### CDP, CMPX #### [place] [address] Lamination Machine Operator: Michael Chen MDHemoglobin (Bld) [Mass/Vol]7.8 g/dLLow11.9-15.1 [facility] CenterComment on above:Performed By: #### CDP, CMPX #### [place] [address] Lamination Machine Operator: Michael Chen MDImmature granulocytes/100 WBC (Bld)1 %Epdy2FvqtgOhiohealth Nelsonville Health CenterComment on above:Performed By: #### TERESA, CMPX #### [place] [address] Lamination Machine Operator: Michael Chen MDLymphocytes (Bld) [#/Vol]0.79 10*3/uLLow 1.10-3.70[facility] CenterComment on above:Performed By: #### TERESA, CMPX #### [place] [address] Lamination Machine Operator: Kimmy Gillmphocytes/100 WBC (Bld)11 %Fcm66-04EmszfOhiohealth Nelsonville Health CenterComment on above:Performed By: #### TERESA, CMPX #### [place] [address] Lamination Machine Operator: WALTER GillCH (RBC) [Entitic mass]29.8 mwPmwhbu18.2-33.5 [facility] CenterComment on above:Performed By: #### CDP, CMPX #### [address] [address] Lamination Machine Operator: WALTER GlilCHC (RBC) [Mass/Vol]29.7 g/pGZnbzdo50.4-34.8 [facility] CenterComment on above:Performed By: #### CDP, CMPX #### [address] [address] Lamination Machine Operator: WALTER GillCV (RBC) [Entitic vol]100.4 sVMybxxc88.6-102.9 [facility] CenterComment on above:Performed By: #### CDP, CMPX #### [place] [address] Lamination Machine Operator: WALTER Gillonocytes (Bld) [#/Vol]0.38 10*3/uLNormal 0.10-1.20[facility] CenterComment on above:Performed By: #### CDP, CMPX #### [place] [address] Lamination Machine Operator: WALTER Gillonocytes/100 WBC (Bld)5 %Normal3-12[facility] CenterComment on above:Performed By: #### CDP, CMPX #### [place] [address] Lamination Machine Operator: Antonino Gillophil (Seg)81 %Tsax90-25GvqmzOhiohealth Nelsonville Health CenterComment on above:Performed By: #### CDP, CMPX #### [place] [address] Lamination Machine Operator: BRIANNA Gill Automated0.0 per 100 WBCNormal0.0[facility] CenterComment on above:Performed By: #### CDP, CMPX #### [place] [address] Lamination Machine Operator: CHIP Gilllatelet mean volume (Bld) [Entitic vol]9.6 fL Normal8.1-13.5[facility] CenterComment on above:Performed By: #### CDP, CMPX #### [facility] [employer] [address] [place] [address] Lamination Machine Operator: Thea Gill ([facility]) [#/Vol]239 10*3/yRPprdqb118-196 [facility] CenterComment on above:Performed By: #### CDP, CMPX #### [facility] [employer] [address] [place] [address] Lamination Machine Operator: CRIS GillBC (d) [#/Vol]2.62 10*6/uLLow3.95-5.11[facility] CenterComment on above:Performed By: #### CDP, CMPX #### [facility] [employer] [address] [place] [address] Lamination Machine Operator: ARIELLE Gill ([facility]) [#/Vol]7.3 10*3/uLNormal3.5-11.3MUniversity of California, Irvine Medical CenterComment on above:Performed By: #### CDP, CMPX #### [address] [address] Lamination Machine Operator: BERENICE Gill CERVICAL SPINE WO CONTRASTon 34-85-2410CO CERVICAL SPINE WO CONTRASTEXAMINATION: CT OF THE [...] Signed by: Alex Hickman MD 01/27/24 Final resultNormalOhiohealth Nelsonville Health CenterBasic Metab w/rfx MGon 01-50-3406Dzint gap [Moles/Vol]8 mmol/LLow9-16[facility] Comment on above:Performed By: #### BMPX, CDP #### [employer] [address] [place] [address] Lamination Machine Operator: RAH Gillalcium [Mass/Vol]7.8 mg/dLLow8.6-10.4[facility] CenterComment on above:Performed By: #### BMPX, CDP #### [employer] [address] [place] [address] Lamination Machine Operator: RAH Gillhloride [Moles/Vol]104 mmol/FUjtpuq37-067PuqokOhiohealth Nelsonville Health CenterComment on above:Performed By: #### BMPX, CDP #### [facility] [address] [place] [address] Lamination Machine Operator: Michael Chen MDCO2 [Moles/Vol]23 mmol/YJjrebb62-11FhfavOhiohealth Nelsonville Health CenterComment on above:Performed By: #### BMPX, CDP #### [facility] [address] [place] [address] Lamination Machine Operator: RAH Gillreatinine [Mass/Vol]1.6 mg/dLHigh0.50-0.90[facility] CenterComment on above:Performed By: #### BMPX, CDP #### [facility] [employer] [address] [place] [address] Lamination Machine Operator: Michael Chen MDGFR/1.73 sq M.predicted among non-blacks MDRD (S/P/Bld) [Vol rate/Area]38 mL/min/{1.73_m2}Low>60[facility] CenterComment on above:Result Comment: These results are [...] By: #### BMPX, CDP #### [facility] [address] [place] [address] Lamination Machine Operator: Michael Chen MDGlucose [Mass/Vol]109 mg/eYKoac93-01DfrpaUniversity of California, Irvine Medical CenterComment on above:Performed By: #### BMPX, CDP #### [facility] [address] [place] [address] Lamination Machine Operator: Michael Chen MDPotassium [Moles/Vol]5.3 mmol/LNormal3.7-5.3 [facility] CenterComment on above:Performed By: #### BMPX, CDP #### [facility] [address] [place] [address] Lamination Machine Operator: Michael Chen MDSodium [Moles/Vol]135 mmol/YUar204-823MnqhrOhiohealth Nelsonville Health CenterComment on above:Performed By: #### BMPX, CDP #### [facility] [address] [place] [address] Lamination Machine Operator: Michael Chen MDUrea nitrogen [Mass/Vol]40 mg/dLHigh8-23[facility] CenterComment on above:Performed By: #### BMPX, CDP #### [address] [address] Lamination Machine Operator: Michael Chen MDAnion gap [Moles/Vol]11 mmol/LNormal9-16[facility] CenterComment on above:Performed By: #### BMPX, CDP #### [facility] [address] [place] [address] Lamination Machine Operator: Michael Chen MDCalcium [Mass/Vol]7.6 mg/dLLow8.6-10.4[facility] CenterComment on above:Performed By: #### BMPX, CDP #### [facility] [address] [place] [address] Lamination Machine Operator: Michael Chen MDChloride [Moles/Vol]102 mmol/PTiotwk25-273WporrOhiohealth Nelsonville Health CenterComment on above:Performed By: #### BMPX, CDP #### [facility] [address] [place] [address] Lamination Machine Operator: Michael Chen MDCO2 [Moles/Vol]20 mmol/XZavrnl37-13AiudvOhiohealth Nelsonville Health CenterComment on above:Performed By: #### BMPX, CDP #### [facility] [employer] [address] [place] [address] Lamination Machine Operator: RAH Gillreatinine [Mass/Vol]1.7 mg/dLHigh0.50-0.90[facility] CenterComment on above:Performed By: #### BMPX, CDP #### [address] [address] Lamination Machine Operator: Michael Chen MDGFR/1.73 sq M.predicted among non-blacks MDRD (S/P/Bld) [Vol rate/Area]35 mL/min/{1.73_m2}Low>60[facility] CenterComment on above:Result Comment: These results are [...] tubular secretion.Performed By: #### BMPX, CDP #### [facility] [employer] [address] [place] [address] Lamination Machine Operator: Michael Chen MDGlucose [Mass/Vol]106 mg/lVBipo84-13UwtoqUniversity of California, Irvine Medical CenterComment on above:Performed By: #### BMPX, CDP #### [facility] [employer] [address] [place] [address] Lamination Machine Operator: Michael Chen MDPotassium [Moles/Vol]5.0 mmol/LNormal3.7-5.3 [facility] CenterComment on above:Performed By: #### BMPX, CDP #### [facility] [employer] [address] [place] [address] Lamination Machine Operator: Michael Chen MDSodium [Moles/Vol]133 mmol/DPdq718-774GcrwoOhiohealth Nelsonville Health CenterComment on above:Performed By: #### BMPX, CDP #### [facility] [address] [place] [address] Lamination Machine Operator: Michael Chen MDUrea nitrogen [Mass/Vol]46 mg/dLHigh8-23[facility] CenterComment on above:Performed By: #### BMPX, CDP #### [facility] [address] [place] [address] Lamination Machine Operator: Michael Chen [facility] with Diffon [id number]. Basophil<0.03 Normal0.00-0.20[facility] CenterComment on above:Performed By: #### VERONICAX, CDP #### [facility] [employer] [address] [place] [address] Lamination Machine Operator: Laz Gill.Imm.Granulocyte0.13 k/uLNormal0.00-0.30[facility] CenterComment on above:Performed By: #### BMPX, CDP #### [facility] [employer] [address] [place] [address] Lamination Machine Operator: Laz Gill.Neutrophil (Seg)8.21 k/uLHigh1.50-8.10[facility] CenterComment on above:Performed By: #### BMPX, CDP #### [place] [address] Lamination Machine Operator: Michael Chen MDBasophils/100 WBC (Bld)0 %Normal0-2MercParnassus campusComment on above:Performed By: #### BMPX, CDP #### [place] [address] Lamination Machine Operator: Michael Chen MDEosinophils (Bld) [#/Vol]0.19 10*3/uLNormal 0.00-0.44[facility] CenterComment on above:Performed By: #### BMPX, CDP #### [facility] [address] [place] [address] Lamination Machine Operator: Michael Chen MDEosinophils/100 WBC (Bld)2 %Normal1-4[facility] CenterComment on above:Performed By: #### BMPX, CDP #### [address] [address] Lamination Machine Operator: Michael Chen MDErythrocyte distribution width (RBC) [Ratio]13.9 %Vecokq51.8-14.4[facility] CenterComment on above:Performed By: #### BMPX, CDP #### [address] [address] Lamination Machine Operator: Michael Chen MDHematocrit (Bld) [Volume fraction]28.3 %Low 36.3-47.1MUniversity of California, Irvine Medical CenterComment on above:Performed By: #### BMPX, CDP #### [address] [address] Lamination Machine Operator: Michael Chen MDHemoglobin (Bld) [Mass/Vol]8.6 g/dLLow11.9-15.1 [facility] CenterComment on above:Performed By: #### BMPX, CDP #### [place] [address] Lamination Machine Operator: Michael Chen MDImmature granulocytes/100 WBC (Bld)1 %Kigk7OafzgOhiohealth Nelsonville Health CenterComment on above:Performed By: #### BMPX, CDP #### [address] [address] Lamination Machine Operator: Michael Chen MDLymphocytes (Bld) [#/Vol]1.09 10*3/uLLow 1.10-3.70[facility] CenterComment on above:Performed By: #### BMPX, CDP #### [address] [address] Lamination Machine Operator: Michael Chen MDLymphocytes/100 WBC (Bld)10 %Dxp20-88VxfaaOhiohealth Nelsonville Health CenterComment on above:Performed By: #### BMPX, CDP #### [address] [address] Lamination Machine Operator: WALTER GillCH (RBC) [Entitic mass]29.5 wmWxenlk15.2-33.5 [facility] CenterComment on above:Performed By: #### BMPX, CDP #### [address] [address] Lamination Machine Operator: WALTER GillCHC (RBC) [Mass/Vol]30.4 g/dPHaofys54.4-34.8 [facility] CenterComment on above:Performed By: #### BMPX, CDP #### [place] [address] Lamination Machine Operator: AWLTER GillCV (RBC) [Entitic vol]96.9 zQCwhwwq54.6-102.9 [facility] CenterComment on above:Performed By: #### BMPX, CDP #### [place] [address] Lamination Machine Operator: Michael Chen MDMonocytes (Bld) [#/Vol]0.85 10*3/uLNormal 0.10-1.20[facility] CenterComment on above:Performed By: #### BMPX, CDP #### [address] [address] Lamination Machine Operator: WALTER Gillonocytes/100 WBC (Bld)8 %Normal3-12[facility] CenterComment on above:Performed By: #### BMPX, CDP #### [facility] [address] [place] [address] Lamination Machine Operator: Michael Gill (Seg)79 %Dgpo35-31LdyglOhiohealth Nelsonville Health CenterComment on above:Performed By: #### BMPX, CDP #### [facility] [address] [place] [address] Lamination Machine Operator: SANGEETA GillBC Automated0.0 per 100 WBCNormal0.0[facility] CenterComment on above:Performed By: #### BMPX, CDP #### [facility] [employer] [address] [place] [address] Lamination Machine Operator: Kwesi Gill mean volume (Bld) [Entitic vol]9.7 fL Normal8.1-13.5[facility] CenterComment on above:Performed By: #### BMPX, CDP #### [facility] [address] [place] [address] Lamination Machine Operator: Segun Gilltevenu (Bld) [#/Vol]270 10*3/cTChpzxa548-422 [facility] CenterComment on above:Performed By: #### BMPX, CDP #### [facility] [employer] [address] [place] [address] Lamination Machine Operator: CRIS GillBC (Bld) [#/Vol]2.92 10*6/uLLow3.95-5.11[facility] CenterComment on above:Performed By: #### BMPX, CDP #### [facility] [employer] [address] [place] [address] Lamination Machine Operator: SONYA Gill (Bld) [#/Vol]10.5 10*3/uLNormal3.5-11.3MUniversity of California, Irvine Medical CenterComment on above:Performed By: #### BMPX, CDP #### [address] [place] [address] Lamination Machine Operator: MDAbs. Bridget Basophil0.03 k/uLNormal0.00-0.20[facility] CenterComment on above:Performed By: #### BMPX, CDP #### [address] [address] Lamination Machine Operator: MDAbs. BridgetImm.Granulocyte0.08 k/uLNormal0.00-0.30[facility] CenterComment on above:Performed By: #### BMPX, CDP #### [address] [address] Lamination Machine Operator: Laz Gill.Neutrophil (Seg)12.75 k/uLHigh1.50-8.10[facility] CenterComment on above:Performed By: #### BMPX, CDP #### [address] [address] Lamination Machine Operator: Michael Chen MDBasophils/100 WBC (Bld)0 %Normal0-2MUniversity of California, Irvine Medical CenterComment on above:Performed By: #### BMPX, CDP #### [address] [address] Lamination Machine Operator: Michael Chen MDEosinophils (Bld) [#/Vol]0.16 10*3/uLNormal 0.00-0.44[facility] CenterComment on above:Performed By: #### BMPX, CDP #### [address] [address] Lamination Machine Operator: LIANA Gillosinophils/100 WBC (Bld)1 %Normal1-4[facility] CenterComment on above:Performed By: #### BMPX, CDP #### [address] [address] Lamination Machine Operator: Michael Chen MDErythrocyte distribution width (RBC) [Ratio]13.7 %Rbljoc76.8-14.4[facility] CenterComment on above:Performed By: #### BMPX, CDP #### [address] [address] Lamination Machine Operator: Michael Chen MDHematocrit (Bld) [Volume fraction]28.8 %Low 36.3-47.1MUniversity of California, Irvine Medical CenterComment on above:Performed By: #### BMPX, CDP #### [address] [address] Lamination Machine Operator: Michael Chen MDHemoglobin (Bld) [Mass/Vol]8.8 g/dLLow11.9-15.1 [facility] CenterComment on above:Performed By: #### BMPX, CDP #### [address] [address] Lamination Machine Operator: Michael Chen MDImmature granulocytes/100 WBC (Bld)1 %Kfoh3YdzaxOhiohealth Nelsonville Health CenterComment on above:Performed By: #### BMPX, CDP #### [address] [address] Lamination Machine Operator: Michael Chen MDLymphocytes (Bld) [#/Vol]1.15 10*3/uLNormal 1.10-3.70[facility] CenterComment on above:Performed By: #### BMPX, CDP #### [address] [address] Lamination Machine Operator: Kimmy Gillmphocytes/100 WBC (Bld)8 %Nia51-47PzsjjOhiohealth Nelsonville Health CenterComment on above:Performed By: #### BMPX, CDP #### [address] [address] Lamination Machine Operator: WALTER GillCH (RBC) [Entitic mass]29.6 okUfjehc61.2-33.5 [facility] CenterComment on above:Performed By: #### BMPX, CDP #### [facility] [address] [place] [address] Lamination Machine Operator: WALTER GillCHC (RBC) [Mass/Vol]30.6 g/uBBlrbix22.4-34.8 [facility] CenterComment on above:Performed By: #### BMPX, CDP #### [facility] [address] [place] [address] Lamination Machine Operator: WALTER GillCV (RBC) [Entitic vol]97.0 mPYftxiv74.6-102.9 [facility] CenterComment on above:Performed By: #### BMPX, CDP #### [facility] [employer] [address] [place] [address] Lamination Machine Operator: WALTER Gillonocytes (Bld) [#/Vol]0.77 10*3/uLNormal 0.10-1.20[facility] CenterComment on above:Performed By: #### BMPX, CDP #### [facility] [employer] [address] [place] [address] Lamination Machine Operator: WALTER Gillonocytes/100 WBC (Bld)5 %Normal3-12[facility] CenterComment on above:Performed By: #### BMPX, CDP #### [facility] [address] [place] [address] Lamination Machine Operator: Antonino Gillophil (Seg)85 %Gtii98-49DdrbeOhiohealth Nelsonville Health CenterComment on above:Performed By: #### BMPX, CDP #### [facility] [employer] [address] [place] [address] Lamination Machine Operator: BRIANNA Gill Automated0.0 per 100 WBCNormal0.0[facility] CenterComment on above:Performed By: #### BMPX, CDP #### [facility] [employer] [address] [place] [address] Lamination Machine Operator: Kwesi Gill mean volume (Bld) [Entitic vol]9.1 fL Normal8.1-13.5[facility] CenterComment on above:Performed By: #### BMPX, CDP #### [address] [address] Lamination Machine Operator: Thea Gill (Bld) [#/Vol]269 10*3/iTVfwoqy080-442 [facility] CenterComment on above:Performed By: #### BMPX, CDP #### [address] [address] Lamination Machine Operator: KATHY Gill (Bld) [#/Vol]2.97 10*6/uLLow3.95-5.11[facility] CenterComment on above:Performed By: #### BMPX, CDP #### [address] [address] Lamination Machine Operator: SONYA Gill (Bld) [#/Vol]14.9 10*3/uLHigh3.5-11.3MUniversity of California, Irvine Medical CenterComment on above:Performed By: #### BMPX, CDP #### [address] [address] Lamination Machine Operator: Nikki Gill,Urineon [id number],UrineSpecimen Description .INDWELLING CATH URINE Special Requests FIRST INSERTION Culture NO GROWTH Report Status FINAL 01/26/2024NormalOhiohealth Nelsonville Health CenterComment on above:Performed By: #### URC #### [facility] [employer] [address] [place] [address] Lamination Machine Operator: FELIPA Gill CERVICAL SPINE (2-3 VIEWS)on [id number] CERVICAL SPINE (2-3 VIEWS)ADDENDUM: Additional findings/impression point: [...] Marcelle Alonso DO 01/26/24 Edited Result - FINALNormalMerCollege HospitalBasic Metab w/rfx MG on 10-42-9860Sbodn gap [Moles/Vol]9 mmol/LNormal9-16Ohio[facility] Nelsonville Health CenterComment on above:Performed By: #### TERESA, BMPX #### [employer] [address] [place], [place] [address] Lamination Machine Operator: RAH Gillalcium [Mass/Vol]7.9 mg/dLLow8.6-10.4Ohio[facility] Nelsonville Health CenterComment on above:Performed By: #### TERESA, BMPX #### [employer] [address] [place] [address] Lamination Machine Operator: RAH Gillhloride [Moles/Vol]105 mmol/BSgcmkq30-899RdjzlOhiohealth Nelsonville Health CenterComment on above:Performed By: #### CDP, BMPX #### [facility] [address] [place] [address] Lamination Machine Operator: RAH GillO2 [Moles/Vol]22 mmol/VQskkcq25-12IdqyxOhiohealth Nelsonville Health CenterComment on above:Performed By: #### TERESA, BMPX #### [facility] [address] [place] [address] Lamination Machine Operator: RAH Gillreatinine [Mass/Vol]1.7 mg/dLHigh0.50-0.90Ohiohealth Nelsonville Health CenterComment on above:Performed By: #### TERESA, BMPX #### [facility] [address] [place] [address] Lamination Machine Operator: Michael Chen MDGFR/1.73 sq M.predicted among non-blacks MDRD (S/P/Bld) [Vol rate/Area]33 mL/min/{1.73_m2}Low>60Ohiohealth Nelsonville Health CenterComment on above:Result Comment: These results are [...] By: #### TERESA, BMPX #### [facility] [address] [place] [address] Lamination Machine Operator: Michael Chen MDGlucose [Mass/Vol]104 mg/cYWcsv63-90RmpvmUniversity of California, Irvine Medical CenterComment on above:Performed By: #### TERESA, BMPX #### [facility] [address] [place] [address] Lamination Machine Operator: Michael Chen MDPotassium [Moles/Vol]5.1 mmol/LNormal3.7-5.3 [facility] Health CenterComment on above:Performed By: #### CDP, BMPX #### [address] [address] Lamination Machine Operator: SHALINI Gillodium [Moles/Vol]136 mmol/PCxhnjc329-210YnynlOhiohealth Nelsonville Health CenterComment on above:Performed By: #### TERESA, BMPX #### [place] [address] Lamination Machine Operator: Michael Chen MDUrea nitrogen [Mass/Vol]51 mg/dLHigh8-23Ohiohealth Nelsonville Health CenterComment on above:Performed By: #### TERESA, BMPX #### [facility] [employer] [address] [place] [address] Lamination Machine Operator: Michael Chen [facility] with Diffon 14-58-7343Mqh. Basophil<0.03 Normal0.00-0.20Ohiohealth Nelsonville Health CenterComment on above:Performed By: #### TERESA, BMPX #### [address] [address] Lamination Machine Operator: MDAbs. BridgetImm.Granulocyte0.03 k/uLNormal0.00-0.30Ohio[facility] Nelsonville Health CenterComment on above:Performed By: #### TERESA, BMPX #### [facility] [employer] [address] [place] [address] Lamination Machine Operator: Laz Gill.Neutrophil (Seg)3.64 k/uLNormal1.50-8.10 [facility] Health CenterComment on above:Performed By: #### TERESA, BMPX #### [facility] [employer] [address] [place] [address] Lamination Machine Operator: Michael Chen MDBasophils/100 WBC (Bld)0 %Normal0-2MercParnassus campusComment on above:Performed By: #### TERESA, BMPX #### [address] [address] Lamination Machine Operator: Michael Chen MDEosinophils (Bld) [#/Vol]0.23 10*3/uLNormal 0.00-0.44Ohiohealth Nelsonville Health CenterComment on above:Performed By: #### CDP, BMPX #### [address] [address] Lamination Machine Operator: LIANA Gillosinophils/100 WBC (Bld)4 %Normal1-4Ohiohealth Nelsonville Health CenterComment on above:Performed By: #### TERESA, BMPX #### [address] [address] Lamination Machine Operator: Michael Chen MDErythrocyte distribution width (RBC) [Ratio]13.7 %Encpox58.8-14.4Ohiohealth Nelsonville Health CenterComment on above:Performed By: #### TERESA, BMPX #### [place] [address] Lamination Machine Operator: Michael Chen MDHematocrit (Bld) [Volume fraction]26.8 %Low 36.3-47.1MUniversity of California, Irvine Medical CenterComment on above:Performed By: #### TERESA, BMPX #### [place] [address] Lamination Machine Operator: Michael Chen MDHemoglobin (Bld) [Mass/Vol]8.0 g/dLLow11.9-15.1 [facility] Health CenterComment on above:Performed By: #### CDP, BMPX #### [address] [address] Lamination Machine Operator: Michael Chen MDImmature granulocytes/100 WBC (Bld)1 %Pecv8ZlfchOhiohealth Nelsonville Health CenterComment on above:Performed By: #### TERESA, BMPX #### [address] [address] Lamination Machine Operator: Michael Chen MDLymphocytes (Bld) [#/Vol]1.38 10*3/uLNormal 1.10-3.70Ohio[facility] Nelsonville Health CenterComment on above:Performed By: #### CDP, BMPX #### [place] [address] Lamination Machine Operator: Kimmy Gillmphocytes/100 WBC (Bld)24 %Fruihz71-01PfgcvOhiohealth Nelsonville Health CenterComment on above:Performed By: #### TERESA, BMPX #### [place] [address] Lamination Machine Operator: WALTER GillCH (RBC) [Entitic mass]29.3 dyKujjuh34.2-33.5 [facility] Health CenterComment on above:Performed By: #### TERESA, BMPX #### [place] [address] Lamination Machine Operator: WALTER GillCHC (RBC) [Mass/Vol]29.9 g/vGSayyoy52.4-34.8 [facility] CenterComment on above:Performed By: #### CDP, BMPX #### [place] [address] Lamination Machine Operator: WALTER GillCV (RBC) [Entitic vol]98.2 bVJnjzow42.6-102.9 [facility] CenterComment on above:Performed By: #### TERESA, BMPX #### [place] [address] Lamination Machine Operator: WALTER Gillonocytes (Bld) [#/Vol]0.58 10*3/uLNormal 0.10-1.20[facility] Nelson[facility] Health CenterComment on above:Performed By: #### TERESA, BMPX #### [facility] [address] [place] [address] Lamination Machine Operator: WALTER Gillonocytes/100 WBC (Bld)10 %Normal3-12Ohio[facility] Nelsonville Health CenterComment on above:Performed By: #### CDP, BMPX #### [facility] [address] [place] [address] Lamination Machine Operator: Natali Gillutrophil (Seg)61 %Jrcjdm81-81CpfpcOhiohealth Nelsonville Health CenterComment on above:Performed By: #### CDP, BMPX #### [address] [address] Lamination Machine Operator: Michael Chen MDNRBC Automated0.0 per 100 WBCNormal0.0Ohiohealth Nelsonville Health CenterComment on above:Performed By: #### CDP, BMPX #### [address] [address] Lamination Machine Operator: Segun Gilltekarthik mean volume (Bld) [Entitic vol]9.1 fL Normal8.1-13.5Ohiohealth Nelsonville Health CenterComment on above:Performed By: #### CDP, BMPX #### [address] [address] Lamination Machine Operator: CHIP Gilllatelets (Bld) [#/Vol]227 10*3/uSCrtcla653-789 [facility] CenterComment on above:Performed By: #### CDP, BMPX #### [facility] [address] [place] [address] Lamination Machine Operator: Michael Chen MDRBC (Bld) [#/Vol]2.73 10*6/uLLow3.95-5.11[facility] Nelson[facility] Health CenterComment on above:Performed By: #### CDP, BMPX #### [facility] [employer] [address] [place] [address] Lamination Machine Operator: Michael Chen MDWBC (Bld) [#/Vol]5.9 10*3/uLNormal3.5-11.3MUniversity of California, Irvine Medical CenterComment on above:Performed By: #### CDP, BMPX #### [address] [address] Lamination Machine Operator: Michael Chen MDFLUORO FOR SURGICAL PROCEDURESon 01-25-2024 FLUORO FOR SURGICAL PROCEDURESRadiology exam is complete. No Radiologist dictation. Please follow up with ordering provider. Final resultNormalOhiohealth Nelsonville Health CenterHgb/Hcton 45-77-1801Rzbkggswvh (Bld) [Volume fraction]30.8 %Low36.3-47.1Mkettering health behavioral medical centery [facility] Comment on above:Performed By: #### BMPX, CDP #### [address] [address] Lamination Machine Operator: Michael Chen MDHemoglobin (Bld) [Mass/Vol]9.5 g/dLLow11.9-15.1 [facility] Health CenterComment on above:Performed By: #### BMPX, CDP #### [facility] [employer] [address] [place] [address] Lamination Machine Operator: Michael Chen MDBasic Metab w/rfx MGon 77-33-6898Njypx gap [Moles/Vol]10 mmol/LNormal9-16[facility] Health CenterComment on above: Performed By: #### BMPX, CDP #### [facility] [employer] [address] [place] [address] Lamination Machine Operator: RAH Gillalcium [Mass/Vol]8.2 mg/dLLow8.6-10.4[facility] Health CenterComment on above:Performed By: #### BMPX, CDP #### [facility] [employer] [address] [place] [address] Lamination Machine Operator: RAH Gillhloride [Moles/Vol]104 mmol/YKkvjpz86-233VszecOhiohealth Nelsonville Health CenterComment on above:Performed By: #### BMPX, CDP #### [facility] [address] [place] [address] Lamination Machine Operator: Michael Chen MDCO2 [Moles/Vol]22 mmol/BVvgvgg29-47DwsyxOhiohealth Nelsonville Health CenterComment on above:Performed By: #### BMPX, CDP #### [facility] [address] [place] [address] Lamination Machine Operator: RAH Gillreatinine [Mass/Vol]1.7 mg/dLHigh0.50-0.90Ohio[facility] Nelson[facility] Health CenterComment on above:Performed By: #### BMPX, CDP #### [facility] [employer] [address] [place] [address] Lamination Machine Operator: Michael Chen MDGFR/1.73 sq M.predicted among non-blacks MDRD (S/P/Bld) [Vol rate/Area]34 mL/min/{1.73_m2}Low>60[facility] Health CenterComment on above:Result Comment: These results are [...] By: #### BMPX, CDP #### [facility] [address] [place] [address] Lamination Machine Operator: Michael Chen MDGlucose [Mass/Vol]100 mg/vYRqmx75-56SszpvUniversity of California, Irvine Medical CenterComment on above:Performed By: #### BMPX, CDP #### [facility] [employer] [address] [place] [address] Lamination Machine Operator: CHIP Gillotassium [Moles/Vol]4.9 mmol/LNormal3.7-5.3 [facility] Health CenterComment on above:Result Comment: SPECIMEN SLIGHTLY HEMOLYZED, RESULTS MAY BE ADVERSELY AFFECTED.Performed By: #### BMPX, CDP #### [address] [address] Lamination Machine Operator: SHALINI Gillodium [Moles/Vol]136 mmol/YNhzans021-457LlofyOhiohealth Nelsonville Health CenterComment on above:Performed By: #### BMPX, CDP #### [address] [address] Lamination Machine Operator: Didier Gill nitrogen [Mass/Vol]51 mg/dLHigh8-23[facility] Health CenterComment on above:Performed By: #### BMPX, CDP #### [address] [address] Lamination Machine Operator: Michael Chen [facility] with Diffon 53-43-0962Tgd. Basophil0.03 k/uL Normal0.00-0.20[facility] Health CenterComment on above:Performed By: #### BMPX, CDP #### [address] [address] Lamination Machine Operator: Laz Gill.Imm.Granulocyte0.11 k/uLNormal0.00-0.30[facility] Health CenterComment on above:Performed By: #### BMPX, CDP #### [address] [address] Lamination Machine Operator: Laz Gill.Neutrophil (Seg)3.73 k/uLNormal1.50-8.10 [facility] Health CenterComment on above:Performed By: #### BMPX, CDP #### [address] [address] Lamination Machine Operator: Michael Madoff, MDBasophils/100 WBC (Bld)1 %Normal0-2MUniversity of California, Irvine Medical CenterComment on above:Performed By: #### BMPX, CDP #### [address] [address] Lamination Machine Operator: Michael Chen MDEosinophils (Bld) [#/Vol]0.24 10*3/uLNormal 0.00-0.44[facility] Health CenterComment on above:Performed By: #### BMPX, CDP #### [place] [address] Lamination Machine Operator: LIANA Gillosinophils/100 WBC (Bld)4 %Normal1-4[facility] Health CenterComment on above:Performed By: #### BMPX, CDP #### [place] [address] Lamination Machine Operator: Michael Chen MDErythrocyte distribution width (RBC) [Ratio]13.8 %Hwmkcz82.8-14.4[facility] Health CenterComment on above:Performed By: #### BMPX, CDP #### [place] [address] Lamination Machine Operator: Michael Chen MDHematocrit (Bld) [Volume fraction]29.4 %Low 36.3-47.1MUniversity of California, Irvine Medical CenterComment on above:Performed By: #### BMPX, CDP #### [place] [address] Lamination Machine Operator: Michael Chen MDHemoglobin (Bld) [Mass/Vol]9.2 g/dLLow11.9-15.1 [facility] Health CenterComment on above:Performed By: #### BMPX, CDP #### [address] [address] Lamination Machine Operator: Michael Chen MDImmature granulocytes/100 WBC (Bld)2 %Jdwb8ZimnwOhiohealth Nelsonville Health CenterComment on above:Performed By: #### BMPX, CDP #### [facility] [employer] [address] [place] [address] Lamination Machine Operator: Michael Chen MDLymphocytes (Bld) [#/Vol]1.63 10*3/uLNormal 1.10-3.70[facility] Health CenterComment on above:Performed By: #### BMPX, CDP #### [facility] [employer] [address] [place] [address] Lamination Machine Operator: Kimmy Gillmphocytes/100 WBC (Bld)25 %Pectxb89-87CovlsOhiohealth Nelsonville Health CenterComment on above:Performed By: #### BMPX, CDP #### [address] [address] Lamination Machine Operator: WALTER GillCH (RBC) [Entitic mass]30.8 irVaaghp90.2-33.5 [facility] CenterComment on above:Performed By: #### BMPX, CDP #### [address] [address] Lamination Machine Operator: WALTER GillCHC (RBC) [Mass/Vol]31.3 g/eCYtoitf79.4-34.8 [facility] CenterComment on above:Performed By: #### BMPX, CDP #### [address] [address] Lamination Machine Operator: WALTER GillCV (RBC) [Entitic vol]98.3 zPRrxeih70.6-102.9 [facility] CenterComment on above:Performed By: #### BMPX, CDP #### [facility] [employer] [address] [place] [address] Lamination Machine Operator: Michael Madoff, MDMonocytes (Bld) [#/Vol]0.74 10*3/uLNormal 0.10-1.20[facility] Health CenterComment on above:Performed By: #### BMPX, CDP #### [address] [address] Lamination Machine Operator: Michael Chen MDMonocytes/100 WBC (Bld)11 %Normal3-12[facility] Health CenterComment on above:Performed By: #### BMPX, CDP #### [address] [address] Lamination Machine Operator: Natali Gillutrophil (Seg)57 %Nfoyzf32-04LwgcvOhiohealth Nelsonville Health CenterComment on above:Performed By: #### BMPX, CDP #### [address] [address] Lamination Machine Operator: Michael Chen MDNRBC Automated0.0 per 100 WBCNormal0.0[facility] Health CenterComment on above:Performed By: #### BMPX, CDP #### [address] [address] Lamination Machine Operator: Segun Gilltekarthik mean volume (Bld) [Entitic vol]9.9 fL Normal8.1-13.5[facility] Health CenterComment on above:Performed By: #### BMPX, CDP #### [address] [address] Lamination Machine Operator: Michael Chen MDPlatelets (Bld) [#/Vol]234 10*3/hAHyojqk111-353 [facility] CenterComment on above:Performed By: #### BMPX, CDP #### [address] [address] Lamination Machine Operator: Michael Chen MDRBC (Bld) [#/Vol]2.99 10*6/uLLow3.95-5.11[facility] Health CenterComment on above:Performed By: #### BMPX, CDP #### [facility] [employer] [address] [place] [address] Lamination Machine Operator: SONYA Gill ([facility]) [#/Vol]6.5 10*3/uLNormal3.5-11.3Mkettering health behavioral medical centery [facility] Medical CenterComment on above:Performed By: #### BMPX, CDP #### [facility] [employer] [address] [place] [address] Lamination Machine Operator: Michael Chen MDANA Screen w/reflexon 57-99-8284WRJ Screen NegativeNormalNEGOhiohealth Nelsonville Health CenterComment on above:Performed By: #### BMPX, CDP #### [place] [address] Lamination Machine Operator: Barney Gilli-dsDNA<0.5Normal<10.0[facility] Health CenterComment on above:Result Comment: Reference Range: <10.0 Negative 10.0-15.0 Equivocal >15.0 PositivePerformed By: #### BMPX, CDP #### [facility] [employer] [address] [place] [address] Lamination Machine Operator: ARMINDA Gill Screen0.1 U/mLNormal<0.7[facility] CenterComment on above:Result Comment: Reference Range: <0.7 Negative 0.7-1.0 Equivocal >1.0 Positive [place] Screen includes U1RNP,RNP70,Sm,Ro(SS-A),La(SS-B),CENP,Scl-70,Elli-1Performed By: #### BMPX, CDP #### [facility] [employer] [address] [place] [address] Lamination Machine Operator: Michael Chen MDANA ScreenNegativeNormalNEGOhiohealth Nelsonville Health CenterComment on above:Performed By: #### CDP, CMPX #### [facility] [address] [place], [place] [address] Lamination Machine Operator: Donald Gill-dsDNA0.7 IU/mLNormal<10.0[facility] Health CenterComment on above:Result Comment: Reference Range: <10.0 Negative 10.0-15.0 Equivocal >15.0 PositivePerformed By: #### TERESA, CMPX #### [place] [address] Lamination Machine Operator: ARMINDA Gill Screen0.2 U/mLNormal<0.7[facility] Health CenterComment on above:Result Comment: Reference Range: <0.7 Negative 0.7-1.0 Equivocal >1.0 Positive [place] Screen includes U1RNP,RNP70,Sm,Ro(SS-A),La(SS-B),CENP,Scl-70,Elli-1Performed By: #### TERESA CMPX #### [place] [address] Lamination Machine Operator: Donald Gill CCPon 42-67-1114Erof CCP0.6 U/mLNormal 0.0-7.0[facility] Health CenterComment on above:Result Comment: Reference Range: <7.0 Negative 7.0-10.0 Equivocal >10.0 PositivePerformed By: #### BMPX, CDP #### [place] [address] Lamination Machine Operator: Michael Chen MDBasic Metab w/rfx MGon 01-71-5022Eahbq gap [Moles/Vol]8 mmol/LLow9-16[facility] CenterComment on above: Performed By: #### CECILIA, CDP #### [place] [id number] Lamination Machine Operator: Michael Chen MDCalcium [Mass/Vol]8.2 mg/dLLow8.6-10.4[facility] CenterComment on above:Performed By: #### BMPX, CDP #### [facility] [address] [place] [address] Lamination Machine Operator: RAH Gillhloride [Moles/Vol]106 mmol/SLukxov00-954UjvlyOhiohealth Nelsonville Health CenterComment on above:Performed By: #### BMPX, CDP #### [facility] [address] [place] [address] Lamination Machine Operator: Michael Chen MDCO2 [Moles/Vol]21 mmol/TVicixm48-09ZtxfyOhiohealth Nelsonville Health CenterComment on above:Performed By: #### BMPX, CDP #### [facility] [address] [place] [address] Lamination Machine Operator: RAH Gillreatinine [Mass/Vol]1.7 mg/dLHigh0.50-0.90[facility] CenterComment on above:Performed By: #### BMPX, CDP #### [facility] [address] [place] [address] Lamination Machine Operator: Michael Chen MDGFR/1.73 sq M.predicted among non-blacks MDRD (S/P/Bld) [Vol rate/Area]33 mL/min/{1.73_m2}Low>60[facility] CenterComment on above:Result Comment: These results are [...] secretion.Performed By: #### BMPX, CDP #### [facility] [employer] [address] [place] [address] Lamination Machine Operator: Michael Chen MDGlucose [Mass/Vol]88 mg/lLUekvhf66-00WezunUniversity of California, Irvine Medical CenterComment on above:Performed By: #### BMPX, CDP #### [address] [address] Lamination Machine Operator: Michael Chen MDPotassium [Moles/Vol]4.8 mmol/LNormal3.7-5.3 [facility] CenterComment on above:Performed By: #### BMPX, CDP #### [place] [address] Lamination Machine Operator: Michael Chen MDSodium [Moles/Vol]135 mmol/SEfj461-344JdettOhiohealth Nelsonville Health CenterComment on above:Performed By: #### BMPX, CDP #### [address] [address] Lamination Machine Operator: Michael Chen MDUrea nitrogen [Mass/Vol]56 mg/dLHigh8-23[facility] CenterComment on above:Performed By: #### BMPX, CDP #### [place] [address] Lamination Machine Operator: ROBERT Gill with Diffon 19-50-8843Nsn. Basophil<0.03 Normal0.00-0.20[facility] Health CenterComment on above:Performed By: #### VERONICAX, CDP #### [facility] [employer] [address] [place] [address] Lamination Machine Operator: Laz Gill.Imm.Granulocyte0.03 k/uLNormal0.00-0.30[facility] CenterComment on above:Performed By: #### BMPX, CDP #### [address] [address] Lamination Machine Operator: Laz Gill.Neutrophil (Seg)5.50 k/uLNormal1.50-8.10 [facility] Health CenterComment on above:Performed By: #### BMPX, CDP #### [address] [address] Lamination Machine Operator: Michael Chen MDBasophils/100 WBC (Bld)0 %Normal0-2MUniversity of California, Irvine Medical CenterComment on above:Performed By: #### BMPX, CDP #### [address] [address] Lamination Machine Operator: Michael Chen MDEosinophils (Bld) [#/Vol]0.15 10*3/uLNormal 0.00-0.44[facility] Health CenterComment on above:Performed By: #### BMPX, CDP #### [address] [address] Lamination Machine Operator: Michael Chen MDEosinophils/100 WBC (Bld)2 %Normal1-4[facility] Health CenterComment on above:Performed By: #### BMPX, CDP #### [place] [address] Lamination Machine Operator: Michael Chen MDErythrocyte distribution width (RBC) [Ratio]13.7 %Nqbnwo48.8-14.4[facility] Health CenterComment on above:Performed By: #### BMPX, CDP #### [place] [address] Lamination Machine Operator: Michael Chen MDHematocrit (Bld) [Volume fraction]28.9 %Low 36.3-47.1MUniversity of California, Irvine Medical CenterComment on above:Performed By: #### BMPX, CDP #### [place] [address] Lamination Machine Operator: Michael Chen MDHemoglobin (Bld) [Mass/Vol]8.6 g/dLLow11.9-15.1 [facility] CenterComment on above:Performed By: #### BMPX, CDP #### [facility] [address] [place] [address] Lamination Machine Operator: Rock Gillture granulocytes/100 WBC (Bld)0 %Normal0 [facility] CenterComment on above:Performed By: #### BMPX, CDP #### [address] [address] Lamination Machine Operator: Michael Chen MDLymphocytes (Bld) [#/Vol]1.07 10*3/uLLow 1.10-3.70[facility] Health CenterComment on above:Performed By: #### BMPX, CDP #### [address] [address] Lamination Machine Operator: Kimmy Gillmphocytes/100 WBC (Bld)14 %Eln16-45MymemOhiohealth Nelsonville Health CenterComment on above:Performed By: #### BMPX, CDP #### [address] [address] Lamination Machine Operator: WALTER GillCH (RBC) [Entitic mass]30.2 uhEubwhj13.2-33.5 [facility] CenterComment on above:Performed By: #### BMPX, CDP #### [address] [address] Lamination Machine Operator: WALTER GillCHC (RBC) [Mass/Vol]29.8 g/kFJcrmrz96.4-34.8 [facility] CenterComment on above:Performed By: #### BMPX, CDP #### [address] [address] Lamination Machine Operator: WALTER GillCV (RBC) [Entitic vol]101.4 fIHsydwq12.6-102.9 [facility] CenterComment on above:Performed By: #### BMPX, CDP #### [address] [place] [address] Lamination Machine Operator: WALTER Gillonocytes (Bld) [#/Vol]0.72 10*3/uLNormal 0.10-1.20[facility] Nelsonville Health CenterComment on above:Performed By: #### BMPX, CDP #### [address] [address] Lamination Machine Operator: WALTER Gillonocytes/100 WBC (Bld)10 %Normal3-12[facility] Health CenterComment on above:Performed By: #### BMPX, CDP #### [address] [address] Lamination Machine Operator: Natali Gillutrophil (Seg)74 %Wtul59-47CoymtOhiohealth Nelsonville Health CenterComment on above:Performed By: #### BMPX, CDP #### [address] [address] Lamination Machine Operator: Michael Chen MDNRBC Automated0.0 per 100 WBCNormal0.0[facility] Health CenterComment on above:Performed By: #### BMPX, CDP #### [address] [address] Lamination Machine Operator: Segun Gilltelet mean volume (Bld) [Entitic vol]9.9 fL Normal8.1-13.5[facility] Health CenterComment on above:Performed By: #### BMPX, CDP #### [address] [address] Lamination Machine Operator: Michael Chen MDPlatelets (Bld) [#/Vol]292 10*3/iRNsbmcp625-632 [facility] CenterComment on above:Performed By: #### BMPX, CDP #### [address] [address] Lamination Machine Operator: CRIS GillBC (Bld) [#/Vol]2.85 10*6/uLLow3.95-5.11[facility] CenterComment on above:Performed By: #### BMPX, CDP #### [address] [address] Lamination Machine Operator: Michael Chen MDWBC (Bld) [#/Vol]7.5 10*3/uLNormal3.5-11.3MUniversity of California, Irvine Medical CenterComment on above:Performed By: #### BMPX, CDP #### [address] [address] Lamination Machine Operator: Abelardo Gill 06-11-7559cHMX Coag (d) [Time]29.1 s Pmoiiu56.0-36.5[facility] Health CenterComment on above:Result Comment: IV Heparin Therapy Range: 66.0-92.0 secPerformed By: #### TERESA, CMPX #### [place] [address] Lamination Machine Operator: Ismael Gill Metab w/rfx MGon 33-89-8937Dekpo gap [Moles/Vol]10 mmol/LNormal9-16[facility] CenterComment on above: Performed By: #### TERESA, CMPX #### [address] [address] Lamination Machine Operator: Michael Chen MDCalcium [Mass/Vol]8.3 mg/dLLow8.6-10.4[facility] CenterComment on above:Performed By: #### TERESA, CMPX #### [address] [address] Lamination Machine Operator: Michael Chen MDChloride [Moles/Vol]107 mmol/WVsbpln71-194YpkewOhiohealth Nelsonville Health CenterComment on above:Performed By: #### CDP, CMPX #### [facility] [address] [place] [address] Lamination Machine Operator: RAH GillO2 [Moles/Vol]21 mmol/RJmabyb12-58VyhkfOhiohealth Nelsonville Health CenterComment on above:Performed By: #### CDP, CMPX #### [facility] [address] [place] [address] Lamination Machine Operator: RAH Gillreatinine [Mass/Vol]1.8 mg/dLHigh0.50-0.90[facility] CenterComment on above:Performed By: #### TERESA, CMPX #### [facility] [employer] [address] [place] [address] Lamination Machine Operator: Michael Chen MDGFR/1.73 sq M.predicted among non-blacks MDRD (S/P/Bld) [Vol rate/Area]32 mL/min/{1.73_m2}Low>60[facility] CenterComment on above:Result Comment: These results are [...] tubular secretion.Performed By: #### TERESA, CMPX #### [facility] [address] [place] [address] Lamination Machine Operator: Michael Chen MDGlucose [Mass/Vol]86 mg/pUPtqwuj16-23RaisnUniversity of California, Irvine Medical CenterComment on above:Performed By: #### TERESA, CMPX #### [facility] [address] [place] [address] Lamination Machine Operator: Michael Chen MDPotassium [Moles/Vol]4.1 mmol/LNormal3.7-5.3 [facility] CenterComment on above:Performed By: #### CDP, CMPX #### [facility] [address] [place] [address] Lamination Machine Operator: SHALINI Gillodium [Moles/Vol]138 mmol/VGdhzuj966-443HmztkOhiohealth Nelsonville Health CenterComment on above:Performed By: #### CDP, CMPX #### [facility] [address] [place] [address] Lamination Machine Operator: Michael Chen MDUrea nitrogen [Mass/Vol]66 mg/dLHigh8-23[facility] CenterComment on above:Performed By: #### CDP, CMPX #### [facility] [address] [address] Lamination Machine Operator: RAH Gill-Reactive Proteinon 48-05-9535GZX [Mass/Vol] 31.7 mg/LHigh0.0-5.0MerCollege HospitalComment on above:Performed By: #### BMPX, CDP #### [address] [address] Lamination Machine Operator: Michael Chen [facility]3on 28-67-7235X6848 mg/zJYygchk52-724DikluOhiohealth Nelsonville Health CenterComment on above:Performed By: #### BMPX, CDP #### [address] [address] Lamination Machine Operator: Michael Chen [facility]4on 94-54-9591H230 mg/mLGlhtaz53-84MpdhdOhiohealth Nelsonville Health CenterComment on above:Performed By: #### BMPX, CDP #### [address] [address] Lamination Machine Operator: RAH Gill with Diffon 90-87-9868Tjx. Basophil0.00 k/uL Normal0.00-0.20[facility] CenterComment on above:Performed By: #### CDP, CMPX #### [address] [address] Lamination Machine Operator: MDAbs. BridgetImm.Granulocyte0.00 k/uLNormal0.00-0.30[facility] CenterComment on above:Performed By: #### CDP, CMPX #### [address] [address] Lamination Machine Operator: MDAbs. BridgetNeutrophil (Seg)6.12 k/uLNormal1.50-8.10 [facility] CenterComment on above:Performed By: #### CDP, CMPX #### [address] [address] Lamination Machine Operator: Michael Chen MDBasophils/100 WBC (Bld)0 %Normal0-2MUniversity of California, Irvine Medical CenterComment on above:Performed By: #### CDP, CMPX #### [address] [address] Lamination Machine Operator: Michael Chen MDEosinophils (Bld) [#/Vol]0.07 10*3/uLNormal 0.00-0.44[facility] CenterComment on above:Performed By: #### CDP, CMPX #### [address] [address] Lamination Machine Operator: Michael Chen MDEosinophils/100 WBC (Bld)1 %Normal1-4[facility] CenterComment on above:Performed By: #### CDP, CMPX #### [address] [address] Lamination Machine Operator: Marty Gillmature granulocytes/100 WBC (Bld)0 %Normal0 [facility] CenterComment on above:Performed By: #### CDP, CMPX #### [facility] [employer] [address] [place] [address] Lamination Machine Operator: Michael Chen MDLymphocytes (Bld) [#/Vol]0.58 10*3/uLLow 1.10-3.70[facility] CenterComment on above:Performed By: #### CDP, CMPX #### [facility] [address] [place] [address] Lamination Machine Operator: Michael Chen MDLymphocytes/100 WBC (Bld)8 %Ohe40-37NujhaOhiohealth Nelsonville Health CenterComment on above:Performed By: #### CDP, CMPX #### [facility] [address] [place] [address] Lamination Machine Operator: WALTER Gillonocytes (Bld) [#/Vol]0.43 10*3/uLNormal 0.10-1.20[facility] CenterComment on above:Performed By: #### CDP, CMPX #### [facility] [address] [place] [address] Lamination Machine Operator: WALTER Gillonocytes/100 WBC (Bld)6 %Normal3-12[facility] Health CenterComment on above:Performed By: #### CDP, CMPX #### [facility] [address] [place] [address] Lamination Machine Operator: WALTER Gillorphology Pedro (Bld) [Interp]NormalNormalOhiohealth Nelsonville Health CenterComment on above:Performed By: #### CDP, CMPX #### [facility] [address] [place] [address] Lamination Machine Operator: Michael Chen MDNeutrophil (Seg)85 %Hove41-96HumjlOhiohealth Nelsonville Health CenterComment on above:Performed By: #### CDP, CMPX #### [facility] [address] [place] [address] Lamination Machine Operator: Michael Chen MDErythrocyte distribution width (RBC) [Ratio]13.6 %Aedmsd99.8-14.4[facility] CenterComment on above:Performed By: #### CDP, CMPX #### [address] [address] Lamination Machine Operator: Michael Chen MDHematocrit (Bld) [Volume fraction]30.3 %Low 36.3-47.1MUniversity of California, Irvine Medical CenterComment on above:Performed By: #### CDP, CMPX #### [place] [address] Lamination Machine Operator: Michael Chen MDHemoglobin (Bld) [Mass/Vol]9.3 g/dLLow11.9-15.1 [facility] CenterComment on above:Performed By: #### CDP, CMPX #### [place] [address] Lamination Machine Operator: WALTER GillCH (RBC) [Entitic mass]30.8 uwWeuqjs36.2-33.5 [facility] CenterComment on above:Performed By: #### CDP, CMPX #### [place] [address] Lamination Machine Operator: WALTER GillCHC (RBC) [Mass/Vol]30.7 g/zLRabdlh72.4-34.8 [facility] CenterComment on above:Performed By: #### CDP, CMPX #### [place] [address] Lamination Machine Operator: WALTER GillCV (RBC) [Entitic vol]100.3 gFDtjpys91.6-102.9 [facility] CenterComment on above:Performed By: #### CDP, CMPX #### [address] [address] Lamination Machine Operator: BRIANNA Gill Automated0.0 per 100 WBCNormal0.0[facility] CenterComment on above:Performed By: #### TERESA, CMPX #### [address] [address] Lamination Machine Operator: Segun Gilltekarthik mean volume (Bld) [Entitic vol]9.6 fL Normal8.1-13.5[facility] Health CenterComment on above:Performed By: #### CDP, CMPX #### [address] [address] Lamination Machine Operator: Segun Gilltelets (Bld) [#/Vol]329 10*3/rGSxaifa618-084 [facility] CenterComment on above:Performed By: #### TERESA, CMPX #### [address] [address] Lamination Machine Operator: CRIS GillBC (Bld) [#/Vol]3.02 10*6/uLLow3.95-5.11[facility] CenterComment on above:Performed By: #### TERESA, CMPX #### [address] [address] Lamination Machine Operator: SONYA Gill (Bld) [#/Vol]7.2 10*3/uLNormal3.5-11.3MUniversity of California, Irvine Medical CenterComment on above:Performed By: #### TERESA, CMPX #### [address] [address] Lamination Machine Operator: Michael Chen MDCT CERVICAL SPINE WO CONTRASTon 71-14-5560YF CERVICAL SPINE WO CONTRASTEXAMINATION: CT OF THE [...] Signed by: Anuj Paniagua MD 01/22/24 Final resultNoalOhiohealth Nelsonville Health CenterCT CHEST ABDOMEN PELVIS W CONTRASTon 08-74-0880TZ CHEST ABDOMEN PELVIS W CONTRASTEXAMINATION: CT OF [...] Signed by: Anuj Paniagua MD 01/22/24 Final resultNormalOhiohealth Nelsonville Health CenterCT HEAD WO CONTRASTon 72-44-7078TC HEAD WO CONTRASTEXAMINATION: CT OF THE HEAD [...] Signed by: Anuj Paniagua MD 01/22/24 Final resultNoOhioHealth Shelby HospitalCT LUMBAR SPINE BONY RECONSTRUCTIONon 43-80-9313YV LUMBAR SPINE BONY RECONSTRUCTIONEXAMINATION: CT OF THE [...] Mild right convex thoracic scoliosis. Interpreted by: Aunj Paniagua MD Signed by: Anuj Paniagua MD 01/22/24 Final resultNormParkview HealthCT THORACIC SPINE BONY RECONSTRUCTIONon 79-29-4860AL THORACIC SPINE BONY RECONSTRUCTIONEXAMINATION: CT OF THE [...] by: Anuj Paniagua MD 01/22/24 Final resultNormalMercy Menifee Global Medical CenterCTA HEAD NECK W CONTRASTon 68-80-9381LWT HEAD NECK W CONTRASTEXAMINATION: CT OF THE [...] Signed by: Anuj Paniagua MD 01/22/24 Final resultNormalOhiohealth Nelsonville Health CenterCreatine Kinaseon 14-97-1617ZI [Catalytic activity/Vol]38 U/WYbhguz59-579PjciqOhiohealth Nelsonville Health Center Comment on above:Performed By: #### BMPX, CDP #### [employer] [facility] [id number] Lamination Machine Operator: JOSESITO Gill BRAIN WO CONTRASTon 98-31-6444TDS BRAIN WO CONTRASTEXAMINATION: MRI OF THE BRAIN [...] by: Shabbir Martin MD 01/22/24 Final resultNormalMercy Menifee Global Medical CenterMRI CERVICAL SPINE WO CONTRAST on 80-01-5022MDA CERVICAL SPINE WO CONTRASTEXAMINATION: MRI OF THE [...] Signed by: Kirby Adames MD 01/22/24 Final resultNormalMerCollege HospitalPTon 28-77-8700JVD Coag (PPP) [Relative time]1.1 {INR}NormalOhiohealth Nelsonville Health CenterComment on above: Result Comment: Therapeutic Range: Moderate Anticoagulant Intensity: INR = 2.0-3.0 High Anticoagulant Intensity: INR = 2.5-3.5Performed By: #### CDP, CMPX #### [facility] [employer] [address] [place] [address] Lamination Machine Operator: WILMAR Gill Coag (PPP) [Time]14.2 qEoetuq69.7-14.9[facility] CenterComment on above:Performed By: #### CDP, CMPX #### [employer] [address] [place] [address] Lamination Machine Operator: CRIS GillA Screenon 30-22-5144NC Screen<88Befugg6-41 [facility] CenterComment on above:Performed By: #### BMPX, CDP #### [facility] [address] [place], [place] [id number] Lamination Machine Operator: SHALINI Gilledimentation Rateon 19-95-5229Zwjpuqaghdcvy Rate11 mm/HrNormal0-30[facility] CenterComment on above:Performed By: #### BMPX, CDP #### [employer] [address] [place] [address] Lamination Machine Operator: Michael Chen MDType + Screenon 53-59-2816Kunv + ScreenSample Expiration 01/25/2024,2359 Arm Band Number [id number] ABO/Rh(D) A POSITIVE Antibody Screen NEGATIVENormalOhiohealth Nelsonville Health CenterComment on above: Performed By: #### BMPX, CDP #### [facility] [address] [place] [address] Lamination Machine Operator: Micahel Chen MDUric Acidon 73-67-8115Tlmxv [Mass/Vol]9.6 mg/dL High2.4-5.7[facility] CenterComment on above:Performed By: #### CECILIA, CDP #### [facility] [address] [place] [address] Lamination Machine Operator: Michael Chen MDVitamin D 25 OHon 24-74-1277Ugeudsc D 25 OH30.3 ng/rIBilcvr41.0-100.0[facility] CenterComment on above:Result Comment: Reference Range: Vitamin D status Range Deficiency <20 ng/mL Mild Deficiency 20-30 ng/mL Sufficiency 30-100 ng/mL Toxicity >100 ng/mLPerformed By: #### VERONICAX, CDP #### [facility] [employer] [address] [place] [address] Lamination Machine Operator: SHARONA GillR CHEST (SINGLE VIEW FRONTAL)on 50-72-0038TU CHEST (SINGLE VIEW FRONTAL)EXAMINATION: ONE XRAY VIEW OF THE CHEST 01/22/2024 10:06 am COMPARISON: Chest radiograph 09/30/2023 HISTORY: ORDERING SYSTEM 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 PROVIDED HISTORY: Pre-op imaging FINDINGS: Lines/tubes: Right [...] Signed by: Migel Price MD 01/22/24 Final resultNormalOhiohealth Nelsonville Health CenterBasic Metab w/rfx MGon 07-66-5204Nrate gap [Moles/Vol]8 mmol/LLow9-16[facility] Comment on above:Performed By: #### CDP, BMPX #### [facility] [employer] [address] [place] [address] Lamination Machine Operator: RAH Gillalcium [Mass/Vol]8.1 mg/dLLow8.6-10.4[facility] CenterComment on above:Performed By: #### CDP, BMPX #### [facility] [address] [place] [address] Lamination Machine Operator: Michael Chen MDChloride [Moles/Vol]101 mmol/ENrpujx26-004OxxdfOhiohealth Nelsonville Health CenterComment on above:Performed By: #### CDP, BMPX #### [facility] [employer] [address] [place] [address] Lamination Machine Operator: Michael Chen MDCO2 [Moles/Vol]23 mmol/ANuopie94-64LaoarOhiohealth Nelsonville Health CenterComment on above:Performed By: #### CDP, BMPX #### [employer] [address] [place] [address] Lamination Machine Operator: Michael Chen MDCreatinine [Mass/Vol]1.5 mg/dLHigh0.50-0.90[facility] CenterComment on above:Performed By: #### CDP, BMPX #### [employer] [address] [place] [address] Lamination Machine Operator: Michael Chen MDGFR/1.73 sq M.predicted among non-blacks MDRD (S/P/Bld) [Vol rate/Area]39 mL/min/{1.73_m2}Low>60[facility] CenterComment on above:Result Comment: These results are [...] tubular secretion.Performed By: #### TERESA, BMPX #### [facility] [employer] [address] [place] [address] Lamination Machine Operator: Michael Chen MDGlucose [Mass/Vol]100 mg/fFUfxd27-81LutuaUniversity of California, Irvine Medical CenterComment on above:Performed By: #### TERESA BMPX #### [facility] [employer] [address] [place] [address] Lamination Machine Operator: CHIP Gillotassium [Moles/Vol]4.4 mmol/LNormal3.7-5.3 [facility] CenterComment on above:Performed By: #### CDP, BMPX #### [facility] [employer] [address] [place] [address] Lamination Machine Operator: Michael Chen MDSodium [Moles/Vol]132 mmol/ULhf674-891UfikxOhiohealth Nelsonville Health CenterComment on above:Performed By: #### CDP, BMPX #### [facility] [employer] [address] [place] [address] Lamination Machine Operator: Michael Chen MDUrea nitrogen [Mass/Vol]56 mg/dLCity Hospital8-23[facility] CenterComment on above:Performed By: #### TERESA, BMPX #### [facility] [employer] [address] [place] [address] Lamination Machine Operator: ROBERT Gill with Diffon 83-17-4443Qka. Basophil0.03 k/uL Normal0.00-0.20[facility] CenterComment on above:Performed By: #### CDP, BMPX #### [address] [address] Lamination Machine Operator: MDAbs. BridgetImm.Granulocyte0.05 k/uLNormal0.00-0.30[facility] CenterComment on above:Performed By: #### TERESA, BMPX #### [address] [address] Lamination Machine Operator: Laz Gill.Neutrophil (Seg)6.55 k/uLNormal1.50-8.10 [facility] CenterComment on above:Performed By: #### TERESA, BMPX #### [address] [address] Lamination Machine Operator: Michael Chen MDBasophils/100 WBC (Bld)0 %Normal0-2MUniversity of California, Irvine Medical CenterComment on above:Performed By: #### TERESA, BMPX #### [place] [address] Lamination Machine Operator: Michael Chen MDEosinophils (Bld) [#/Vol]0.10 10*3/uLNormal 0.00-0.44[facility] CenterComment on above:Performed By: #### CDP, BMPX #### [facility] [employer] [address] [place] [address] Lamination Machine Operator: LIANA Gillosinophils/100 WBC (Bld)1 %Normal1-4[facility] CenterComment on above:Performed By: #### TERESA, BMPX #### [address] [address] Lamination Machine Operator: Michael Chen MDErythrocyte distribution width (RBC) [Ratio]13.6 %Mrlzqh01.8-14.4[facility] CenterComment on above:Performed By: #### CDP, BMPX #### [address] [address] Lamination Machine Operator: Michael Chen MDHematocrit (Bld) [Volume fraction]27.9 %Low 36.3-47.1MUniversity of California, Irvine Medical CenterComment on above:Performed By: #### TERESA, BMPX #### [place] [address] Lamination Machine Operator: Michael Chen MDHemoglobin (Bld) [Mass/Vol]8.4 g/dLLow11.9-15.1 [facility] CenterComment on above:Performed By: #### TERESA, BMPX #### [address] [address] Lamination Machine Operator: Michael Chen MDImmature granulocytes/100 WBC (Bld)1 %Hfwd4VdbprOhiohealth Nelsonville Health CenterComment on above:Performed By: #### TERESA, BMPX #### [address] [address] Lamination Machine Operator: Michael Chen MDLymphocytes (Bld) [#/Vol]0.94 10*3/uLLow 1.10-3.70[facility] CenterComment on above:Performed By: #### TERESA, BMPX #### [facility] [employer] [address] [place] [address] Lamination Machine Operator: Kimmy Gillmphocytes/100 WBC (Bld)11 %Frx85-19FetfcOhiohealth Nelsonville Health CenterComment on above:Performed By: #### TERESA, BMPX #### [facility] [employer] [address] [place] [address] Lamination Machine Operator: WALTER GillCH (RBC) [Entitic mass]30.5 emVerweb54.2-33.5 [facility] CenterComment on above:Performed By: #### CDP, BMPX #### [facility] [employer] [address] [place] [address] Lamination Machine Operator: WALTER GillCHC (RBC) [Mass/Vol]30.1 g/tLAqwvme09.4-34.8 [facility] CenterComment on above:Performed By: #### CDP, BMPX #### [address] [address] Lamination Machine Operator: WALTER GillCV (RBC) [Entitic vol]101.5 hHSkezdt54.6-102.9 [facility] CenterComment on above:Performed By: #### CDP, BMPX #### [address] [address] Lamination Machine Operator: WALTER Gillonocytes (Bld) [#/Vol]0.54 10*3/uLNormal 0.10-1.20[facility] CenterComment on above:Performed By: #### CDP, BMPX #### [facility] [employer] [address] [place] [address] Lamination Machine Operator: WALTER Gillonocytes/100 WBC (Bld)7 %Normal3-12[facility] CenterComment on above:Performed By: #### CDP, BMPX #### [address] [address] Lamination Machine Operator: Antonino Gillophil (Seg)80 %Khvx51-68GrrvlOhiohealth Nelsonville Health CenterComment on above:Performed By: #### CDP, BMPX #### [facility] [employer] [address] [place] [address] Lamination Machine Operator: BRIANNA Gill Automated0.0 per 100 WBCNormal0.0[facility] CenterComment on above:Performed By: #### TERESA, BMPX #### [facility] [employer] [address] [place] [address] Lamination Machine Operator: Kwesi Gill mean volume (Bld) [Entitic vol]8.9 fL Normal8.1-13.5[facility] CenterComment on above:Performed By: #### TERESA, BMPX #### [address] [address] Lamination Machine Operator: Segun Gilltevenu (Bld) [#/Vol]281 10*3/oETpdklz263-640 [facility] CenterComment on above:Performed By: #### TERESA, BMPX #### [address] [address] Lamination Machine Operator: CRIS GillBC (Bld) [#/Vol]2.75 10*6/uLLow3.95-5.11[facility] CenterComment on above:Performed By: #### TERESA, BMPX #### [facility] [employer] [address] [place] [address] Lamination Machine Operator: SONYA Gill (Bld) [#/Vol]8.2 10*3/uLNormal3.5-11.3MUniversity of California, Irvine Medical CenterComment on above:Performed By: #### TERESA, BMPX #### [facility] [employer] [address] [place] [address] Lamination Machine Operator: Vonnie Gillsic Metab w/rfx MGon 20-28-5452Pftyw gap [Moles/Vol]12 mmol/LNormal9-16[facility] CenterComment on above: Performed By: #### TERESA, BMPX #### [facility] [employer] [address] [place] [address] Lamination Machine Operator: RAH Gillalcium [Mass/Vol]8.2 mg/dLLow8.6-10.4[facility] CenterComment on above:Performed By: #### CDP, BMPX #### [facility] [employer] [address] [place] [address] Lamination Machine Operator: Michael Chen MDChloride [Moles/Vol]103 mmol/AHkmqms00-089KgxhzCollege HospitalComment on above:Performed By: #### CDP, BMPX #### [facility] [address] [place] [address] Lamination Machine Operator: Michael Chen MDCO2 [Moles/Vol]23 mmol/AEppxxi07-06BdlofOhiohealth Nelsonville Health CenterComment on above:Performed By: #### TERESA, BMPX #### [facility] [employer] [address] [place] [address] Lamination Machine Operator: RAH Gillreatinine [Mass/Vol]1.6 mg/dLHigh0.50-0.90[facility] Health CenterComment on above:Performed By: #### TERESA, BMPX #### [facility] [employer] [address] [place] [address] Lamination Machine Operator: Michael Chen MDGFR/1.73 sq M.predicted among non-blacks MDRD (S/P/Bld) [Vol rate/Area]35 mL/min/{1.73_m2}Low>60MerCollege HospitalComment on above:Result Comment: These results are [...] secretion.Performed By: #### CDP, BMPX #### [facility] [employer] [address] [place] [address] Lamination Machine Operator: Michael Chen MDGlucose [Mass/Vol]89 mg/iQEypgeb75-20ItxwyUniversity of California, Irvine Medical CenterComment on above:Performed By: #### CDP, BMPX #### [address] [address] Lamination Machine Operator: CHIP Gillotassium [Moles/Vol]4.6 mmol/LNormal3.7-5.3 [facility] CenterComment on above:Result Comment: SPECIMEN SLIGHTLY HEMOLYZED, RESULTS MAY BE ADVERSELY AFFECTED.Performed By: #### CDP, BMPX #### [facility] [address] [place] [address] Lamination Machine Operator: SHALINI Gillodium [Moles/Vol]138 mmol/VKweejg060-511UvptkOhiohealth Nelsonville Health CenterComment on above:Performed By: #### TERESA, BMPX #### [facility] [address] [place] [address] Lamination Machine Operator: Michael Chen MDUrea nitrogen [Mass/Vol]57 mg/dLCity Hospital8-23[facility] Health CenterComment on above:Performed By: #### CDP, BMPX #### [address] [address] Lamination Machine Operator: Michael Chen MDBrain Natri. Peptideon 93-89-1417Qjceknulvst peptide B (Bld) [Mass/Vol]1428 pg/mLCity Hospital0-300[facility] Comment on above:Result Comment: An age-independent cutoff point of 300 pg/ml has a 98% negative predictive value excluding acute heart failure.Performed By: #### CDP, BMPX #### [address] [address] Lamination Machine Operator: Michael Chen MDLiver Profileon 87-17-2583Ckahhka [Mass/Vol]3.5 g/dLNormal3.5-5.2MUniversity of California, Irvine Medical CenterComment on above:Performed By: #### CDP, BMPX #### [address] [address] Lamination Machine Operator: Michael Chen MDAlbumin/Glob Ratio2.8Mamrnf5.0-2.5[facility] Health CenterComment on above:Performed By: #### CDP, BMPX #### [address] [address] Lamination Machine Operator: Antione Gillkaline Qxll346 U/KEruo28-874CjbcnOhiohealth Nelsonville Health CenterComment on above:Performed By: #### CDP, BMPX #### [address] [address] Lamination Machine Operator: Michael Chen MDALT [Catalytic activity/Vol]17 U/XLlhhvr33-87 [facility] CenterComment on above:Performed By: #### CDP, BMPX #### [address] [address] Lamination Machine Operator: Michael Chen MDAST [Catalytic activity/Vol]33 U/JFzsjap36-98 [facility] CenterComment on above:Result Comment: SPECIMEN SLIGHTLY HEMOLYZED, RESULTS MAY BE ADVERSELY AFFECTED.Performed By: #### CDP, BMPX #### [address] [address] Lamination Machine Operator: Michael Chen MDBilirubin [Mass/Vol]0.2 mg/dLNormal0.00-1.20 [facility] Health CenterComment on above:Performed By: #### CDP, BMPX #### [address] [address] Lamination Machine Operator: Michael Chen MDBilirubin, Indirect0.1 mg/dLNormal0.0-1.0[facility] Health CenterComment on above:Performed By: #### CDP, BMPX #### [facility] [address] [place] [address] Lamination Machine Operator: Michael Chen MDBilirubin.indirect [Mass/Vol]mg/dLNormal 0.00-0.30[facility] Health CenterComment on above:Performed By: #### CDP, BMPX #### [facility] [address] [place] [address] Lamination Machine Operator: Michael Chen MDGlobulin (S) [Mass/Vol]2.1 g/dLNormalOhiohealth Nelsonville Health CenterComment on above:Performed By: #### CDP, BMPX #### [facility] [address] [place] [address] Lamination Machine Operator: CHIP Gillrotein [Mass/Vol]5.6 g/dLLow6.6-8.7[facility] Health CenterComment on above:Performed By: #### CDP, BMPX #### [facility] [address] [place] [address] Lamination Machine Operator: Hill Gill Rejectionon 19-72-9646Uijguj for rejectionUnable to perform testing: Specimen clotted.NormalOhiohealth Nelsonville Health CenterComment on above:Performed By: #### CDP, BMPX #### [facility] [address] [place] [address] Lamination Machine Operator: Berkley Gill of sample.BLOODNormalOhiohealth Nelsonville Health CenterComment on above:Performed By: #### CDP, BMPX #### [facility] [address] [place] [address] Lamination Machine Operator: Michael Chen MDTest orderedCDPNormalOhiohealth Nelsonville Health CenterComment on above:Performed By: #### CDP, BMPX #### [facility] [address] [place] [address] Lamination Machine Operator: FELIPA Gill CERVICAL SPINE (2-3 VIEWS)on 03-09-4156SQ CERVICAL SPINE (2-3 VIEWS)EXAMINATION: 4 XRAY VIEWS [...] Signed by: Carlos Peralta MD 09/30/23 Final resultNoOhioHealth Shelby HospitalXR CHEST PORTABLEon 09-30-2023 XR CHEST PORTABLEEXAMINATION: [...] Signed by: Carlos Peralta MD 09/30/23 Final resultNoOhioHealth Shelby HospitalAbsolute reticulocyte count Ordered By: Los Grissom on 98-42-8730Kztwdpoqcjksj (Bld) [#/Vol]0.039 10*6/uL 0.024-0.084Day[facility]opathic HospitalBasic Metabolic Panelon 07-03-2023 Creatinine Clr Calc Mbvwfqpn08.88NoChildren's Hospital of ColumbusComment on above:Performed By: #### [id number], MG, BMP, JOSE, FE and TIBC, RETIC #### [facility] [address] [id number] USAGFR/1.73 sq M.predicted MDRD (S/P/Bld) [Vol rate/Area] 23.348 mL/min/{1.73_m2}NormalDayton Osteopathic HospitalComment on above: Performed By: #### [id number], MG, BMP, JOSE, FE and TIBC, RETIC #### [place] [address] USACalcium [Mass/volume] in Serum or PlasmaOrdered By: Jim Randhawa on 00-00-9728Oejvcsd [Mass/Vol]8.3 mg/dLLow8.6-10.3FWVUMedicine Barnesville HospitalComment on above:Performed By: #### [id number], MG, BMP, JOSE, FE and TIBC, RETIC #### [place] [address] USACarbon dioxide, total [Moles/volume] in Serum or Plasma Ordered By: Jim Randhawa on 45-79-9810BA6 [Moles/Vol]20.4 mmol/LLow21.0-31.0 [facility] HospitalComment on above:Performed By: #### [id number], MG, BMP, JOSE, FE and TIBC, RETIC #### [place] [address] USAChloride [Moles/volume] in Serum or PlasmaOrdered By: Jim Randhawa on 93-31-1399Njwsggax [Moles/Vol]106 mmol/HDrzmah90-282PvrgschlhDayton Osteopathic HospitalComment on above:Performed By: #### [id number], MG, BMP, JOSE, FE and TIBC, RETIC #### [place] [address] USACreatinine [Mass/volume] in Serum or PlasmaOrdered By: Jim Randhawa on 07-06-6848Somekqwvdi [Mass/Vol]2.32 mg/dLHigh0.60-1.20[facility] HospitalComment on above:Performed By: #### NWEF15FQU, MG, BMP, JOSE, FE and TIBC, RETIC #### [facility] [address] [place] [address] [facility] echo transthoracicon 86-15-6981XQW echo transthoracic [facility] [place] [address] [place] [address] Echocardiogram Signed Patient: Mabel Moser MR#: [id number] : 1960 Acct:[id number] Age/Sex: 63 / F ADM Date: 06/29/23 Loc: Room: [address] [place] [address] Type: DIS IN Attending Dr: Jim Randhawa DO Ordering Provider: Jim Randhawa DO Date of Service: 07/02/2301/16/859 ECH/ECH echo transthoracic: swelling Copies to: MD Jim Meyer DO Weight: 189 lb Performed By: Judah Pinto [facility] BSA: 1.9 m2 BP: 112/75 [...] FS: 40.8 % Ao root area: 7.8 jy8LWLp ap4: 8.4 cm TAPSE: 2.6 cm EDV(Teich): [...] 1155 Signed By: Benjie Leach MD 07/03/23 1445NormalDayton Osteopathic HospitalFerritin [Mass/volume] in Serum or PlasmaOrdered By: Los Grissom on 64-91-0340Krdyalog [Mass/Vol]71.9 ng/cKQsxlrj77.0-306.8[facility] HospitalComment on above:Performed By: #### GPKW52GOV, MG, BMP, JOSE, FE and TIBC, RETIC #### [place] [address] USAFolate [Mass/volume] in Serum or PlasmaOrdered By: Los Grissom on 28-80-2958Unnrgo [Mass/Vol]11.1 ng/mL>5.9[facility]opathic HospitalComment on above:Folate reference range: >5.9 ng/mlThe WHO technical consultation on folate and vitamin i33sufjzvlmilie has determined that folate concentrations lessthan 4 ng/ml are considered deficient.Glucose [Mass/volume] in Serum or PlasmaOrdered By: Jim Randhawa on 29-99-9395Tzkreae [Mass/Vol]99 mg/yQCoxrss28-011WqxfmqsacDayton Osteopathic HospitalComment on above:ADA recommended reference rangeRandom Glucose [...] Mellitus. ADA recommended reference rangePerformed By: #### [id number], MG, BMP, JOSE, FE and TIBC, RETIC #### [facility] [address] [place] [address] USAIron [Mass/volume] in Serum or PlasmaOrdered By: Los Grissom on 85-51-8549Pgle [Mass/Vol]59 ug/kLXczcyn48-407EedkrxhgbDayton Osteopathic HospitalComment on above:Performed By: #### UXHL14MBV, MG, BMP, JOSE, FE and TIBC, RETIC #### [facility] [address] [place] [address] USAIron and TIBC Profileon 07-03-2023% Iron Fwoahdfmxr95.8 % Rxihha85-75WnhqsuwykDayton Osteopathic HospitalComment on above:Performed By: #### GUKB25IZJ, MG, BMP, JOSE, FE and TIBC, RETIC #### [facility] [address] [place] [address] USATotal Iron Binding Hpltqlqi190 ug/rKPkgwhq147-639GrgbsvjspDayton Osteopathic HospitalComment on above:Performed By: #### EPFK68LXP, MG, BMP, JOSE, FE and TIBC, RETIC #### [facility] [address] [place] [address] USAIron binding capacity [Mass/volume] in Serum or Plasma Ordered By: Los Grissom on 39-97-0814Khha binding capacity [Mass/Vol]259 ug/dL 255-450Dayton Osteopathic HospitalIron saturation [Mass Fraction] in Serum or PlasmaOrdered By: Los Grissom on 46-25-2947Tuwb saturation [Mass fraction] 22.8 %20-50Day[facility] Osteopathic HospitalMagnesium [Mass/volume] in Serum or PlasmaOrdered By: Jim Randhawa on 86-08-1338Yljbvnrdk [Mass/Vol]2.0 mg/dLNormal 1.9-2.7FWVUMedicine Barnesville HospitalComment on above:Performed By: #### CRIJ14ZFV, MG, BMP, JOSE, FE and TIBC, RETIC #### [facility] [address] [phone] USANo Panel InformationOrdered By: Jim Randhawa on 07-03-2023 Estimated GFR (CKD-EPI)23.348 mL/MinDayton Osteopathic HospitalPharmacy Creatinine Clearance (Chem25.88Day[facility] Osteopathic HospitalPotassium [Moles/volume] in Serum or PlasmaOrdered By: Jim Randhawa on 16-99-5372Hlhrpirve [Moles/Vol]3.9 mmol/LNormal3.5-5.1FWVUMedicine Barnesville HospitalComment on above:Performed By: #### GXLN99HDE, MG, BMP, JOSE, FE and TIBC, RETIC #### [facility] [address] [id number] USAReticulocyte Counton 28-17-5961Zuzapgabbbnr Number0.039 10*6/uLNormal0.024-0.084[facility]opathic HospitalComment on above:Result Comment: PERFORMED BY: [place] [address] PATHOLOGIST MICA SPLITTER TANNER GAVIN M.D.Performed By: #### XSOS52UPI, MG, BMP, JOSE, FE and TIBC, RETIC #### [facility] [address] [id number] USAReticulocyte Percent1.5 %Normal0.5-1.5FWVUMedicine Barnesville HospitalComment on above:Performed By: #### KVVD61HBQ, MG, BMP, JOSE, FE and TIBC, RETIC #### [facility] [address] [place] [address] USAReticulocytes/100 RBC Auto (Bld)Ordered By: Los Grissom on 78-54-5478Snxacnuqkhnlk/100 RBC (Bld)1.5 %0.5-1.5FAvita Health Systemerum or plasma anion gap determinationOrdered By: Jim Randhawa on 83-94-4531Wmbro gap [Moles/Vol]11.5 mmol/LNormal6.0-15.0[facility] HospitalComment on above:Performed By: #### KETM88HLP, MG, BMP, JOSE, FE and TIBC, RETIC #### [facility] [address] [place] [address] USASodium [Moles/volume] in Serum or PlasmaOrdered By: Jim Randhawa on 61-18-1213Rqmypt [Moles/Vol]134 mmol/DUpm218-841DnnppsnhuDayton Osteopathic HospitalComment on above:Performed By: #### [id number], MG, BMP, JOSE, FE and TIBC, RETIC #### [facility] [address] [place], [place] [address] USATransferrin [Mass/volume] in Serum or PlasmaOrdered By: Los Grissom on 40-05-4344Mcaifocaubh [Mass/Vol]185 mg/nHEtc847-269NzksoreiaDayton Osteopathic HospitalComment on above:Performed By: #### [id number], MG, BMP, JOSE, FE and TIBC, RETIC #### [facility] [address] [place], [place] [address] USAUrea nitrogen [Mass/volume] in Serum or PlasmaOrdered By: Jim Randhawa on 71-88-0444Vzww nitrogen [Mass/Vol]95 mg/dLHigh7-25[facility] HospitalComment on above:Performed By: #### [id number], MG, BMP, JOSE, FE and TIBC, RETIC #### [facility] [address] [place], [place] [address] USAVit. B12/Folate Profileon 97-23-6590Dcldcp59.1 ng/mLNormal >5.9[facility]opathic HospitalComment on above:Result Comment: Folate reference range: >5.9 ng/ml The WHO technical consultation on folate and vitamin b12 deficiencies has determined that folate concentrations less than 4 ng/ml are considered deficient. PERFORMED BY: [place] [address] PATHOLOGIST MICA SPLITTER TANNER GAVIN M.D.Performed By: #### [id number], MG, BMP, JOSE, FE and TIBC, RETIC #### [place] [address] USAVitamin B12 ser/plasOrdered By: Los Grissom on 07-03-2023 Cobalamin (Vitamin B12) [Mass/Vol]3564 pg/aXHwco536-799CviawocnmDayton Osteopathic HospitalComment on above:Performed By: #### WEFQ38GTX, MG, BMP, JOSE, FE and TIBC, RETIC #### [place] [address] USABasic Metabolic Panelon 93-32-3454Bdcdk gap [Moles/Vol] 11.0 mmol/LNormal6.0-15.0[facility] HospitalComment on above: Performed By: #### [id number], MG, BMP, JOSE, FE and TIBC, RETIC #### [place] [address] USACalcium [Mass/Vol]8.4 mg/dLLow8.6-10.3FWVUMedicine Barnesville HospitalComment on above:Performed By: #### UWRC68HTQ, MG, BMP, JOSE, FE and TIBC, RETIC #### [place] [address] USAChloride [Moles/Vol]104 mmol/AIeemgi02-915WjlqktkatDayton Osteopathic HospitalComment on above:Performed By: #### OBRO07LEM, MG, BMP, JOSE, FE and TIBC, RETIC #### [place] [address] USACO2 [Moles/Vol]20.2 mmol/LLow21.0-31.0[facility] HospitalComment on above:Performed By: #### UUHZ61URP, MG, BMP, JOSE, FE and TIBC, RETIC #### [address] [place] [address] USACreatinine [Mass/Vol]2.31 mg/dLHigh0.60-1.20[facility] HospitalComment on above:Performed By: #### [id number], MG, BMP, JOSE, FE and TIBC, RETIC #### [facility] [address] [place] [address] USACreatinine Clr Calc Kqusfhyf63.22NormalDayton Osteopathic HospitalComment on above:Performed By: #### BANW97HSB, MG, BMP, JOSE, FE and TIBC, RETIC #### [facility] [address] [place] [address] USAGFR/1.73 sq M.predicted MDRD (S/P/Bld) [Vol rate/Area] 23.469 mL/min/{1.73_m2}NormalDayton Osteopathic HospitalComment on above: Performed By: #### [id number], MG, BMP, JOSE, FE and TIBC, RETIC #### [place] [address] USAGlucose [Mass/Vol]89 mg/tVLzmlvp19-567JyzvabxucDayton Osteopathic HospitalComment on above:Result Comment: Random Glucose Reference Range is dependent on time and content of last meal. Glucose of more than 200 mg/dL in a nonstressed, ambulatory subject supports the diagnosis of Diabetes Mellitus. ADA recommended reference rangePerformed By: #### [id number], MG, BMP, JOSE, FE and TIBC, RETIC #### [place] [address] USAPotassium [Moles/Vol]4.2 mmol/LNormal3.5-5.1FWVUMedicine Barnesville HospitalComment on above:Performed By: #### NUST76PGN, MG, BMP, JOSE, FE and TIBC, RETIC #### [place] [address] USASodium [Moles/Vol]131 mmol/QVbv275-321NgafihgdsDayton Osteopathic HospitalComment on above:Performed By: #### PWVN35MWE, MG, BMP, JOSE, FE and TIBC, RETIC #### [facility] [address] [place] [address] USAUrea nitrogen [Mass/Vol]100 mg/dLHigh7-25Day[facility]opathic HospitalComment on above:Performed By: #### VSNY78YTD, MG, BMP, JOSE, FE and TIBC, RETIC #### [facility] [address] [place] [address] USAErythrocyte distribution width Auto (RBC) [Ratio]Ordered By: Jim Randhawa on 17-65-5709Smhbbvinwxc distribution width (RBC) [Ratio]14.2 % 11.9-15.3FWVUMedicine Barnesville HospitalHematocrit Auto (Bld) [Volume fraction]Ordered By: Jim Randhawa on 63-31-6487Vvvnetrkxi (Bld) [Volume fraction]25.0 %34.0-46.4FWVUMedicine Barnesville HospitalHemoglobin [Mass/volume] in BloodOrdered By: Jim Randhawa on 69-09-7191Lcvfomhzqw (Bld) [Mass/Vol]8.4 g/dL11.8-15.4FWVUMedicine Barnesville HospitalHemogram CBC Without Diffon 84-72-1899Dklayokibpz distribution width (RBC) [Ratio]14.2 %Normal 11.9-15.3FWVUMedicine Barnesville HospitalComment on above:Performed By: #### [id number], MG, BMP, JOSE, FE and TIBC, RETIC #### [place] [address] USAHematocrit (Bld) [Volume fraction]25.0 %Low34.0-46.4 [facility] HospitalComment on above:Performed By: #### XNSH35CKI, MG, BMP, JOSE, FE and TIBC, RETIC #### [place] [address] USAHemoglobin (Bld) [Mass/Vol]8.4 g/dLLow11.8-15.4FWVUMedicine Barnesville HospitalComment on above:Performed By: #### VAVR22CQF, MG, BMP, JOSE, FE and TIBC, RETIC #### [address]H (RBC) [Entitic mass]32.3 bsZnhomv12.7-34.3FWVUMedicine Barnesville HospitalComment on above:Performed By: #### JUIT55APT, MG, BMP, JOSE, FE and TIBC, RETIC #### [place] [address] USAMCV (RBC) [Entitic vol]96.6 zXDtvokl97-203FkufetguqDayton Osteopathic HospitalComment on above:Performed By: #### CVDB14ABA, MG, BMP, JOSE, FE and TIBC, RETIC #### [place] [address] USAMean Corpuscular HGB Conc33.4 g/aJIkgtdz27.0-35.0[facility] HospitalComment on above:Performed By: #### EOIY76UZM, MG, BMP, JOSE, FE and TIBC, RETIC #### [place] [address] USAPlatelet mean volume (Bld) [Entitic vol]7.7 fLNormal 6.3-10.7FWVUMedicine Barnesville HospitalComment on above:Result Comment: PERFORMED BY: [place] [address] PATHOLOGIST MICA SPLITTER TANNER GAVIN M.D.Performed By: #### [id number], MG, BMP, JOSE, FE and TIBC, RETIC #### [place] [address] USAPlatelets (Bld) [#/Vol]217 10*3/xQRyljca808-369BuzkdkojxDayton Osteopathic HospitalComment on above:Performed By: #### [id number], MG, BMP, JOSE, FE and TIBC, RETIC #### [place] [address] USARBC (Bld) [#/Vol]2.59 10*6/uLLow3.60-5.00[facility] HospitalComment on above:Performed By: #### MKGG60FKN, MG, BMP, JOSE, FE and TIBC, RETIC #### [facility] [address] [place] [address] USAWBC (Bld) [#/Vol]6.1 10*3/uLNormal3.8-11.6FWVUMedicine Barnesville HospitalComment on above:Performed By: #### GLTL13PYW, MG, BMP, JOSE, FE and TIBC, RETIC #### [facility] [address] [place] [address] USALeukocytes [#/volume] corrected for nucleated erythrocytes in Blood by Automated counOrdered By: Jim Randhawa on 46-79-9248DYC corrected for nucl RBC Auto (Bld) [#/Vol]6.1 10*3/uL3.8-11.6FHighland District HospitalH Auto (RBC) [Entitic mass]Ordered By: Jim Randhawa on 38-27-2807CJV (RBC) [Entitic mass]32.3 pg24.7-34.3FHighland District HospitalHC Auto (RBC) [Mass/Vol]Ordered By: Jim Randhawa on 25-48-9323AXXM (RBC) [Mass/Vol]33.4 g/dL32.0-35.0Day[facility] Osteopathic HospitalMCV Auto (RBC) [Entitic vol] Ordered By: Jim Randhawa on 11-82-1135ZQH (RBC) [Entitic vol]96.6 dI67-146 [facility]opathic HospitalMagnesiumon 31-39-4480Kswjdjwtk [Mass/Vol]2.1 mg/dLNormal1.9-2.7FWVUMedicine Barnesville HospitalComment on above:Result Comment: PERFORMED BY: [place] [address] PATHOLOGIST MICA SPLITTER TANNER GAVIN M.D.Performed By: #### SXIZ72QSJ, MG, BMP, JOSE, FE and TIBC, RETIC #### [facility] [address] [place] [address] USAPlatelet mean volume Auto (Bld) [Entitic vol]Ordered By: Jim Randhawa on 32-30-4211Zomaiuii mean volume (Bld) [Entitic vol]7.7 fL6.3-10.7 [facility]opathic HospitalPlatelets Auto (Bld) [#/Vol]Ordered By: Jim Randhawa on 26-11-4322Hylrswxei (Bld) [#/Vol]217 10*3/lA369-216NzrhrzfwmDayton Osteopathic HospitalRBC Auto (Bld) [#/Vol]Ordered By: Jim Randhawa on 84-03-5800GTZ (Bld) [#/Vol]2.59 10*6/uL3.60-5.00[facility]opathic HospitalBasic Metabolic Panelon 55-18-7956Axkqe gap [Moles/Vol]11.9 mmol/LNormal6.0-15.0 [facility] HospitalComment on above:Order Comment: LINE DRAW Performed By: #### OVWM22MKS, MG, BMP, JOSE, FE and TIBC, RETIC #### [facility] [address] [place] [address] USACalcium [Mass/Vol]8.9 mg/dLNormal8.6-10.3FWVUMedicine Barnesville HospitalComment on above:Order Comment: LINE DRAWPerformed By: #### WFNO96KDD, MG, BMP, JOSE, FE and TIBC, RETIC #### [facility] [address] [place] [address] USAChloride [Moles/Vol]108 mmol/WUbph14-354ZqbnqnxaoDayton Osteopathic HospitalComment on above:Order Comment: LINE DRAWPerformed By: #### VMSK74LWM, MG, BMP, JOSE, FE and TIBC, RETIC #### [facility] [address] [place] [address] USACO2 [Moles/Vol]18.5 mmol/LLow21.0-31.0[facility] HospitalComment on above:Order Comment: LINE DRAWPerformed By: #### VEUV30IRJ, MG, BMP, JOSE, FE and TIBC, RETIC #### [facility] [address] [id number] USACreatinine [Mass/Vol]2.63 mg/dLSignificant change up 0.60-1.20[facility] HospitalComment on above:Order Comment: LINE DRAWPerformed By: #### KVNF94UMK, MG, BMP, JOSE, FE and TIBC, RETIC #### [facility] [address] [place] [address] USACreatinine Clr Calc Llscwlky35.09NormalDayton Osteopathic HospitalComment on above:Order Comment: LINE DRAWPerformed By: #### RFGR78BWR, MG, BMP, JOSE, FE and TIBC, RETIC #### [facility] [address] [place] [address] USAGFR/1.73 sq M.predicted MDRD (S/P/Bld) [Vol rate/Area] 20.085 mL/min/{1.73_m2}NormalDayton Osteopathic HospitalComment on above: Order Comment: LINE DRAWPerformed By: #### OTRW65BQN, MG, BMP, JOSE, FE and TIBC, RETIC #### [facility] [address] [place] [address] USAGlucose [Mass/Vol]128 mg/oQVxbh13-232ZulbjvixwDayton Osteopathic HospitalComment on above:Order Comment: LINE DRAWResult Comment: Random Glucose Reference Range is dependent on time and content of last meal. Glucose of more than 200 mg/dL in a nonstressed, ambulatory subject supports the diagnosis of Diabetes Mellitus. ADA recommended reference rangePerformed By: #### QWFC48AMS, MG, BMP, JOSE, FE and TIBC, RETIC #### [facility] [address] [place] [address] USAPotassium [Moles/Vol]4.4 mmol/LNormal3.5-5.1FWVUMedicine Barnesville HospitalComment on above:Order Comment: LINE DRAWPerformed By: #### EQZA68TXA, MG, BMP, JOSE, FE and TIBC, RETIC #### [facility] [address] [id number] USASodium [Moles/Vol]134 mmol/NAwz397-732QwynfbzcqDayton Osteopathic HospitalComment on above:Order Comment: LINE DRAWPerformed By: #### LUHB27KIZ, MG, BMP, JOSE, FE and TIBC, RETIC #### [place] [address] USAUrea nitrogen [Mass/Vol]104 mg/dLHigh7-25Day[facility]opathic HospitalComment on above:Order Comment: LINE DRAWPerformed By: #### MUWV30VUC, MG, BMP, JOSE, FE and TIBC, RETIC #### [place] [address] USAMagnesiumon 12-75-5395Iucvqyhsn [Mass/Vol]2.3 mg/dLNormal 1.9-2.7FWVUMedicine Barnesville HospitalComment on above:Order Comment: LINE DRAWResult Comment: PERFORMED BY: [place] [address] PATHOLOGIST MICA SPLITTER TANNER GAVIN M.D.Performed By: #### DMVQ90GMR, MG, BMP, JOSE, FE and TIBC, RETIC #### [place] [address] USABasic Metabolic Panelon 90-34-0290Owggy gap [Moles/Vol] 14.6 mmol/LNormal6.0-15.0[facility] HospitalComment on above: Performed By: #### UMME18UWF, MG, BMP, JOSE, FE and TIBC, RETIC #### [place] [address] USACalcium [Mass/Vol]8.6 mg/dLNormal8.6-10.3FWVUMedicine Barnesville HospitalComment on above:Performed By: #### GROB22BMI, MG, BMP, JOSE, FE and TIBC, RETIC #### [place] [address] USAChloride [Moles/Vol]109 mmol/DFeyd69-063YzcgpoojcDayton Osteopathic HospitalComment on above:Performed By: #### BHBR86LLF, MG, BMP, JOSE, FE and TIBC, RETIC #### [address] [place] [address] USACO2 [Moles/Vol]15.0 mmol/LLow21.0-31.0[facility]opathic HospitalComment on above:Performed By: #### EPOK16LWS, MG, BMP, JOSE, FE and TIBC, RETIC #### [facility] [address] [place] [address] USACreatinine [Mass/Vol]3.16 mg/dLHigh0.60-1.20[facility]opathic HospitalComment on above:Performed By: #### FLPT14LZN, MG, BMP, JOSE, FE and TIBC, RETIC #### [facility] [address] [place] [address] USACreatinine Clr Calc Skvhienr08.26NormMiami Valley HospitalComment on above:Performed By: #### YHYL94LYC, MG, BMP, JOSE, FE and TIBC, RETIC #### [place] [address] USAGFR/1.73 sq M.predicted MDRD (S/P/Bld) [Vol rate/Area] 16.114 mL/min/{1.73_m2}NormalDayton Osteopathic HospitalComment on above: Performed By: #### [id number], MG, BMP, JOSE, FE and TIBC, RETIC #### [place] [address] USAGlucose [Mass/Vol]79 mg/kDCydlad62-261CflkezhdtDayton Osteopathic HospitalComment on above:Result Comment: Random Glucose Reference Range is dependent on time and content of last meal. Glucose of more than 200 mg/dL in a nonstressed, ambulatory subject supports the diagnosis of Diabetes Mellitus. ADA recommended reference rangePerformed By: #### [id number], MG, BMP, JOSE, FE and TIBC, RETIC #### [place] [address] USAPotassium [Moles/Vol]4.6 mmol/LNormal3.5-5.1FWVUMedicine Barnesville HospitalComment on above:Performed By: #### [id number], MG, BMP, JOSE, FE and TIBC, RETIC #### [facility] [address] [place] [address] USASodium [Moles/Vol]134 mmol/TWty673-241GjofebpjwDayton Osteopathic HospitalComment on above:Performed By: #### [id number], MG, BMP, JOSE, FE and TIBC, RETIC #### [place] [address] USAUrea nitrogen [Mass/Vol]117 mg/dLHigh7-25Dayton Osteopathic HospitalComment on above:Performed By: #### [id number], MG, BMP, JOSE, FE and TIBC, RETIC #### [place] [address] USAMagnesiumon 69-83-5747Rupfbfsud [Mass/Vol]2.5 mg/dLNormal 1.9-2.7FWVUMedicine Barnesville HospitalComment on above:Result Comment: PERFORMED BY: [place] [address] PATHOLOGIST MICA SPLITTER TANNER GAVIN M.D.Performed By: #### [id number], MG, BMP, JOSE, FE and TIBC, RETIC #### [place] [address] USACBC AUTO DIFFon [id number] #0.0 103/ulNormal0.0-0.1The [facility] Charles HospitalComment on above:Performed By: #### CBC ####[facility] Ksrbpjlczp[address] [place], [place] [address]Dr.Yilan ChangBasophils/100 WBC (Bld)0.6 %Normal0.2-2.0The [facility] Charles HospitalComment on above:Performed By: #### CBC ####[facility] Cbfctcjqco[address] [place], [place] [address]Dr.Yilan ChangEO #0.1 103/ulNormal0.0-0.7The [facility] Charles HospitalComment on above:Performed By: #### CBC ####[facility] Qtvcuptkkw[address] [place] [address]Dr.Airam ChangEosinophils/100 WBC (Bld)1.7 %Normal 0.9-7.0The [facility] Charles HospitalComment on above:Performed By: #### CBC ####[facility] Lsfodkzhmw[address] [place], [place] [address]Dr.Airam Tripathi Erythrocyte distribution width (RBC) [Ratio]15.2 %Critically high11.0-15.0The [facility] Charles HospitalComment on above:Performed By: #### CBC ####[facility] Rmdmmkarra[address] [place], [place] [address]Dr.Airam ChangHematocrit (Bld) [Volume fraction]31.6 %Critically low36.0-48.0The [facility] Charles HospitalComment on above:Performed By: #### CBC ####[facility] Ltoubvgbda[address] [place], [place] [address]Dr.Airam ChangHemoglobin (Bld) [Mass/Vol]9.9 g/dL Critically low12.0-16.0The [facility] Charles HospitalComment on above:Performed By: #### CBC ####[facility] Jeaywqsddf6[address] [place], [place] [address]Dr. Airam ChangIG #0.02 10e3/ulNormal0.00-0.03The [facility] Charles HospitalComment on above: Performed By: #### CBC ####[facility] Aihlvyjmud224[address] [place], [place] [address]Dr.Airam ChangIG %0.4 %Normal0.0-0.5The [facility] Charles HospitalComment on above:Performed By: #### CBC ####[facility] Uxgvvnzkhu8[address] [place], [place] [address]Dr.Selenaneil ChangLYMPH #0.8 103/ulCritically low1.2-3.8The [facility] Charles HospitalComment on above:Performed By: #### CBC ####[facility] Vbrfhbwygj450[address] [place], [place] [address]Dr.Airam ChangLymphocytes/100 WBC (Bld)16.9 %Critically low20.5-60.0The [facility] HospitalComment on above:Performed By: #### CBC ####[facility] Upvahxtpdv[address] [place] [address]Dr.Airam TripathiMANUAL DIFF REQ NONormalThe [facility] Charles HospitalComment on above:Performed By: #### CBC ####[facility] Zwezbpteun[address] [place] [address]Dr. Airam TripathiH (RBC) [Entitic mass]28.4 cvFhoghh55.7-34.0The [facility] Comment on above:Performed By: #### CBC ####[facility] Skqxgioxkk4709[address] [place], [place] [address]Dr.Airam TripathiHC (RBC) [Mass/Vol]31.3 g/dL Hrvmhf71.9-35.2The [facility] Charles HospitalComment on above:Performed By: #### CBC ####[facility] Ntgwfdxhbo[address] [place], [place] [address]Dr. Selenaneil TripathiV (RBC) [Entitic vol]90.8 uQKazaaw72.0-99.0The [facility] Comment on above:Performed By: #### CBC ####[facility] Filhayoijq058[address] [place], [place] [address]Dr.Airam TripathiMONO #0.4 103/ulNormal0.3-0.[address] Charles HospitalComment on above:Performed By: #### CBC ####[facility] Rssuvdtjbh378[address] [place], [place] [address]Dr.Airam Deuce Monocytes/100 WBC (Bld)8.9 %Normal1.7-12.0The [facility] HospitalComment on above: Performed By: #### CBC ####[facility] Agqycreibj130[address] [place], [place] [address]Dr.Airam DeuceNEUT #3.4 103/ulNormal1.4-6.5The [facility] Charles HospitalComment on above:Performed By: #### CBC ####[facility] Tgwwnyyzea06[address] [place], [place] [address]Dr.Selenaneil TripathiNeutrophils/100 WBC (Bld)71.5 %Gamawd10.0-75.0The [facility] Charles HospitalComment on above:Performed By: #### CBC ####[facility] Naaqinfzbe116[address] [place], [place] [address]Dr.Airam TripathiPlatelet mean volume (Bld) [Entitic vol]9.4 fLCritically low 9.5-13.5The [facility] HospitalComment on above:Performed By: #### CBC ####[facility] Rvabxmpsin97[address] [place], [place] [address]Dr. Selenaneil TripathiXruvfSSE898 103/liTdynab304-963Xtn [facility] HospitalComment on above: Performed By: #### CBC ####[facility] Lrbfbigima4925[address] [place], [place] [address]Dr.Selenaneli TripathiRBC3.48 106/ulCritically low4.20-5.40The [facility] HospitalComment on above:Performed By: #### CBC ####[facility] Dxadjaiqks69280[address] [place], [place] [address]Dr.Selenaneil TripathiWBC4.7 103/ul Normal4.0-11.0The [facility] Charles HospitalComment on above:Performed By: #### CBC ####[facility] Azzyhtqlun084[address] [place], [place] [address]Dr. Airam TripathiPROF 14(COMP METB)on 48-89-1885Jrfuntv [Mass/Vol]3.4 g/dLNormal 3.4-5.0The [facility] Charles HospitalComment on above:Performed By: #### CMP ####[facility] Asnazqnfef[address] [place], [place] [address]Dr.Airam Tripathi Albumin/Globulin [Mass ratio]1.0 {ratio}NormalThe [facility] Charles HospitalComment on above:Performed By: #### CMP ####[facility] Pmzychfmms7[address] [place], [place] [address]Dr.Airam TripathiALP [Catalytic activity/Vol]123 U/L Critically kygq14-201Jzs [facility] HospitalComment on above:Performed By: #### CMP ####[facility] Uwmzpgnvgs6525[address] [place], [place] [address]Dr. Airam TripathiALT [Catalytic activity/Vol]24 U/WJmivru97-82Hxi [facility] Comment on above:Performed By: #### CMP ####[facility] Zphnxqdrcn[address] [place], [place] [address]Dr.Yilan ChangAnion gap [Moles/Vol]12.1 mmol/LNormalThe [facility] HospitalComment on above:Performed By: #### CMP ####[facility] Oxkndaxnkj004[address] [place], [place] [address]Dr. Yilan ChangAST [Catalytic activity/Vol]30 U/BFllart14-24Pyo [facility] Comment on above:Performed By: #### CMP ####[facility] Laureadqkb209[address] [place], [place] [address]Dr.Yilan ChangBilirubin [Mass/Vol]0.4 mg/dL Normal0.2-1.0The [facility] HospitalComment on above:Performed By: #### CMP ####[facility] Juejbbyaqm726[address] [place], [place] [address]Dr. Yilan ChangCalcium [Mass/Vol]8.9 mg/dLNormal8.5-10.1The [facility] HospitalComment on above:Performed By: #### CMP ####[facility] Ixofoqpxra[address] [place], [place] [address]Dr.Yilan ChangChloride [Moles/Vol]95 mmol/LCritically trj42-200Sbp [facility] HospitalComment on above:Performed By: #### CMP ####[facility] Oyrahevgdz008[address] [place], [place] [address]Dr. Yilan ChangCO2 [Moles/Vol]28.7 mmol/EYrbfrs57.0-32.0The [facility] HospitalComment on above:Performed By: #### CMP ####[facility] Rnqnvbakao756[address] [place], [place] [address]Dr.Yilan ChangCreatinine [Mass/Vol]1.25 mg/dL Critically high0.55-1.02The [facility] HospitalComment on above:Performed By: #### CMP ####[facility] Ynvkcphbyu136[address] [place], [place] [address]Dr.Yilan ChangEGFR-AF FLBJOEBD18 mL/min/1.75a5Bomxqbfiet low>=60The [facility] HospitalComment on above:Performed By: #### CMP ####[facility] Lcfhnzjgsm[address] [place], [place] [address]Dr.Yilan ChangEGFR-NON AF YTDUCJWB09 mL/min/1.02g2Snucahblja low>=60The [facility] HospitalComment on above: Performed By: #### CMP ####[facility] Fajboniytm1089[address] [place], [place] [address]Dr.Yilan ChangGlobulin (S) [Mass/Vol]3.5 g/dLNormalThe [facility] HospitalComment on above:Performed By: #### CMP ####[facility] Ysssywcicw065[address] [place], [place] [address]Dr.Yilan ChangGlucose [Mass/Vol]89 mg/gYMtnhts75-297Sad [facility] HospitalComment on above:Performed By: #### CMP ####[facility] Vrjcvyhpcx401[address] [place], [place] [address]Dr.Yilan ChangPotassium [Moles/Vol]4.8 mmol/LNormal3.5-5.1The [facility] HospitalComment on above:Performed By: #### CMP ####[facility] Shmaipgtzh084[address] [place], [place] [address]Dr.Yilan ChangProtein [Mass/Vol]6.9 g/dLNormal6.4-8.2The [facility] HospitalComment on above:Performed By: #### CMP ####[facility] Ninrapefsr9212[address] [place], [place] [address]Dr.Yilan ChangSodium [Moles/Vol]131 mmol/LCritically mmw881-751Peq [facility] HospitalComment on above:Performed By: #### CMP ####[facility] Iwgagrsdnu557[address] [place], [place] [address]Dr.Yilan ChangUrea nitrogen [Mass/Vol]37.0 mg/dLCritically high7.0-18.0The [facility] HospitalComment on above:Performed By: #### CMP ####[facility] Gbewlnhsgo[address] [place], [place] [address]Dr.Selenaneil DeuceUrea nitrogen/Creatinine [Mass ratio] 29.6 mg/mgNormalThe [facility] HospitalComment on above:Performed By: #### CMP ####[facility] Xvpqocwsnr239[address] [place], [place] [address]Dr. Airam TripathiOSMOLALITYon 99-04-8206Xnpncdfajf [Osmolality]293 mosm/kgNormal 275-295The [facility] HospitalComment on above:Performed By: #### OSMO ####[facility] Evckagrpds335[address] [place], [place] [address]Dr. Airam TripathiBNPon 59-85-0660Tfmfugscucm peptide B (Bld) [Mass/Vol]1142.0 pg/mL Critically high<=900.0The [facility] HospitalComment on above:Performed By: #### BNP ####[facility] Kcnmamsiii9[address] [place], [place] [address]Dr. Airam TripathiCBC AUTO DIFFon 69-32-1233PPJZ #0.0 103/ulNormal0.0-0.1The [facility] HospitalComment on above:Performed By: #### CBC ####[facility] Ttagnwiqho764[address] [place], [place] [address]Dr.Airam TripathiBasophils/100 WBC (Bld)0.3 %Normal0.2-2.0The [facility] HospitalComment on above:Performed By: #### CBC ####[facility] Yjawoohgyl[address] [place], [place] [address]Dr.Airam ChangEO #0.3 103/ulNormal0.0-0.7The [facility] HospitalComment on above:Performed By: #### CBC ####[facility] Jqrpsrgegj538[address] [place], [place] [address]Dr.Airam ChangEosinophils/100 WBC (Bld)4.6 %Normal 0.9-7.0The [facility] HospitalComment on above:Performed By: #### CBC ####[facility] Uwxmjmuweq823[address] [place], [place] [address]Dr.Airam Tripathi Erythrocyte distribution width (RBC) [Ratio]16.1 %Critically high11.0-15.0The [facility] HospitalComment on above:Performed By: #### CBC ####[facility] Jedlocxqlc[address] [place], [place] [address]Dr.Airam DeuceHematocrit (Bld) [Volume fraction]28.0 %Critically low36.0-48.0The [facility] HospitalComment on above:Performed By: #### CBC ####[facility] Fwcwbstyra8313[address] [place], [place] [address]Dr.Airam ChangHemoglobin (Bld) [Mass/Vol]8.9 g/dL Critically low12.0-16.0The [facility] HospitalComment on above:Performed By: #### CBC ####[facility] Borvieqaye060[address] [place], [place] [address]Dr. Airam ChangIG #0.02 10e3/ulNormal0.00-0.03The [facility] HospitalComment on above: Performed By: #### CBC ####[facility] Lgqdgtalkv2537[address] [place], [place] [address]Dr.Airam ChangIG %0.3 %Normal0.0-0.5The [facility] HospitalComment on above:Performed By: #### CBC ####[facility] Qnkxcrqdse169[address] [place], [place] [address]Dr.Airam TripathiLYMPH #1.5 103/ulNormal1.2-3.8The [facility] HospitalComment on above:Performed By: #### CBC ####[facility] Zwvzkzolxo828[address] [place], [place] [address]Dr. Airam TripathiLymphocytes/100 WBC (Bld)24.2 %Mwxzhu19.5-60.0The [facility] Comment on above:Performed By: #### CBC ####[facility] Ccbnyutnpu067[address] [place], [place] [address]Dr.Airam TripathiMANUAL DIFF REQNONormalThe [facility] HospitalComment on above:Performed By: #### CBC ####[facility] Dctshxukql534[address] [place], [place] [address]Dr.Airam TripathiMCH (RBC) [Entitic mass]29.3 ojWvrikw66.7-34.0The [facility] HospitalComment on above: Performed By: #### CBC ####[facility] [address]jdqzra[address] [place] [address]Dr.Airam TripathiHC (RBC) [Mass/Vol]31.8 g/dLNormal 29.9-35.2The [facility] HospitalComment on above:Performed By: #### CBC ####[facility] Sikkdsszlb9[address] [place] [address]Dr. Airam TripathiV (RBC) [Entitic vol]92.1 dSDudhph32.0-99.0The [facility] Comment on above:Performed By: #### CBC ####[facility] Cjwihnxnkn[address] [place], [place] [address]Dr.Airam TripathiMONO #0.6 103/ulNormal0.3-0.[address] [facility] HospitalComment on above:Performed By: #### CBC ####[facility] Hnwrgukstw222[address] [place], [place] [address]Dr.Airam Tripathi Monocytes/100 WBC (Bld)10.0 %Normal1.7-12.0The [facility] HospitalComment on above:Performed By: #### CBC ####[facility] Brtorpcvzr728[address] [place], [place] [address]Dr.Airam TripathiNEUT #3.7 103/ulNormal1.4-6.5The [facility] HospitalComment on above:Performed By: #### CBC ####[facility] Upfmozkyhh5215[address] [place], [place] [address]Dr.Airam TripathiNeutrophils/100 WBC (Bld)60.6 %Ladovg66.0-75.0The [facility] HospitalComment on above:Performed By: #### CBC ####[facility] Csuzbcycrc934[address] [place], [place] [address]Dr.Airam TripathiPlatelet mean volume (Bld) [Entitic vol]9.1 fLCritically low 9.5-13.5The [facility] HospitalComment on above:Performed By: #### CBC ####[facility] Oprzwgzfaq43[address] [place], [place] [address]Tm. Yilan DkdreXCD759 103/vcPewcio705-946Llo [facility] HospitalComment on above: Performed By: #### CBC ####[facility] Jpdetwuieh[address] [place] [address]Dr.Yilan ChangRBC3.04 106/ulCritically low4.20-5.40The [facility] HospitalComment on above:Performed By: #### CBC ####[facility] Ovevdmmygq7[address] [place] [address]Dr.Yilan ChangWBC6.1 103/ul Normal4.0-11.0The [facility] HospitalComment on above:Performed By: #### CBC ####[facility] Hmhcyjldpb[address] [place] [address]Dr. Yilan ChangCT STROKE HEAD WOon 53-09-7111QQ STROKE HEAD WONormalThe [facility] Charles HospitalPROF CHEM 8 (BAS METB)on 60-36-7614Cvqnn gap [Moles/Vol]9.8 mmol/LNormal The [facility] HospitalComment on above:Performed By: #### VERONICA, HSTROPN ####[facility] Xewytgfzxb[address] [place], [place] [address]Dr. Yilan ChangCalcium [Mass/Vol]8.4 mg/dLCritically low8.5-10.1The [facility] HospitalCommclaren flint on above:Performed By: #### VERONICA, HSTROPN ####[facility] Xnzwarqwoj8919 [place], [place]Dr. Yilan ChangChloride [Moles/Vol]99 mmol/EOpvaky99-990Qti [facility] HospitalCommclaren flint on above:Performed By: #### VERONICA, HSTROPN ####[facility] Sonupaerzz[address] [place] [address]Dr. Yilan ChangCO2 [Moles/Vol]28.3 mmol/LNormal 21.0-32.0The [facility] HospitalComment on above:Performed By: #### VERONICA, HSTROPN ####[facility] Paiffwpmso2814 [place], [place]Dr. Yilan ChangCreatinine [Mass/Vol]1.40 mg/dLCritically high0.55-1.02The [facility] HospitalComment on above:Performed By: #### VERONICA, HSTROPN ####[facility] Dfwoyqmljv0160 [place], [place]Dr. Yilan ChangEGFR-AF XQFPABNQ33 mL/min/1.82z8Heqnfqyynl low>=60The [facility] HospitalComment on above: Performed By: #### VERONICA, HSTROPN ####[facility] Shkxnfyzaq25[address] [place], [place]Dr. Yilan ChangEGFR-NON AF ISTWBUKU96 mL/min/1.73m2 Critically low>=60The [facility] HospitalComment on above:Performed By: #### VERONICA, HSTROPN ####[facility] K[address]waeutcz62[address] [place], [place] [address]Ow. Yilan ChangGlucose [Mass/Vol]88 mg/hUPegsey61-949Qdk [facility] Comment on above:Performed By: #### VERONICA, HSTROPN ####[facility] Xkexnmhnxo0920 [place], [place]Dr. Yilan ChangPotassium [Moles/Vol]5.1 mmol/LNormal3.5-5.1The [facility] HospitalComment on above: Performed By: #### VERONICA, HSTROPN ####[facility] Aadpzycxyv67[address] [place], [place]Dr. Yilan ChangSodium [Moles/Vol]132 mmol/LCritically nrb386-288Gvm [facility] HospitalComment on above:Performed By: #### VERONICA, HSTROPN ####[facility] Aowpnffsth0527 [place], [place]Dr. Yilan ChangUrea nitrogen [Mass/Vol]56.0 mg/dLCritically high7.0-18.0The [facility] HospitalComment on above:Performed By: #### BMP, HSTROPN ####[facility] Uoumsikxhy8141 [place], [place]Dr. Yilan ChangUrea nitrogen/Creatinine [Mass ratio]40.0 mg/mgNormalThe [facility] HospitalComment on above:Performed By: #### VERONICA HSTROPN ####[facility] Bqdabyhcuz[address] [place], [place] [address]Dr. Yilan ChangTROPONIN, HIGH SENSITIVITYon 83-63-0531CWXDRW1.9 pg/mLNormal4.0-51.3The [facility] HospitalComment on above: Result Comment: CUT-OFF POINTS HAVE BEEN ESTABLISHED BASED ON THE FOURTH UNIVERSAL DEFINITIONS OF MYOCARDIALINFARCTION. THE UPPER REFERENCE LIMIT (URL) OF TROPONIN, DEFINED THE 99TH PERCENTILE OFcTnI DISTRIBUTION IN A REFERENCE POPULATION, HAS BEEN CONFIRMED THE DECISION THRESHOLDFOR NH DIAGNOSIS. Performed By: #### VERONICA HSTROPN ####[facility] Huaskouhcd[address] [place], [place] [address]Dr. Yilan ChangXR CHEST 1 Von 35-15-8486ME CHEST 1 V NormalThe [facility] AUTO DIFFon 60-79-8345FHCI #0.0 103/ulNormal 0.0-0.1The [facility] HospitalComment on above:Performed By: #### CBC ####[facility] Etuibhyhym[address] [place], [place] [address]Dr.Yilan Tripathi Basophils/100 WBC (Bld)0.4 %Normal0.2-2.0The [facility] HospitalCommclaren flint on above: Performed By: #### CBC ####[facility] Vajpmzguqe[address] [place], [place] [address]Dr.Yilan ChangEO #0.4 103/ulNormal0.0-0.7The [facility] HospitalCommclaren flint on above:Performed By: #### CBC ####[facility] Spmmrqthkr[address] [place], [place] [address]Dr.Yilan ChangEosinophils/100 WBC (Bld)4.6 %Normal0.9-7.0The [facility] HospitalCommclaren flint on above:Performed By: #### CBC ####[facility] Cfvufslwif[address] [place], [place] [address]Dr.Yilan ChangErythrocyte distribution width (RBC) [Ratio]15.8 %Critically high11.0-15.0The [facility] HospitalComment on above:Performed By: #### CBC ####[facility] Jyutcjuhxq93[address] [place], [place] [address]Dr. Airam ChangHematocrit (Bld) [Volume fraction]30.3 %Critically low36.0-48.0The [facility] HospitalComment on above:Performed By: #### CBC ####[facility] Nglbfgzmfz85[address] [place], [place] [address]Dr.Selenaneil ChangHemoglobin (Bld) [Mass/Vol]9.3 g/dLCritically low12.0-16.0The [facility] HospitalComment on above:Performed By: #### CBC ####[facility] Kfnwimdlwu06[address] [place], [place] [address]Dr.Yineil ChangIG #0.03 10e3/ulNormal0.00-0.03The [facility] HospitalComment on above:Performed By: #### CBC ####[facility] Fazusuuajy[address] [place], [place] [address]Dr.Selenaneil ChangIG %0.4 %Normal 0.0-0.5The [facility] HospitalComment on above:Performed By: #### CBC ####[facility] Fmwvbdgcfc150[address] [place], [place] [address]Dr.Selenaneil ChangLYMPH #2.0 103/ulNormal1.2-3.8The [facility] HospitalComment on above:Performed By: #### CBC ####[facility] Mzhlpdwrdt[address] [place], [place] [address]Dr.Airam ChangLymphocytes/100 WBC (Bld)24.5 %Lyjnxk04.5-60.0The [facility] HospitalComment on above:Performed By: #### CBC ####[facility] Logmlopceu[address] [place], [place] [address]Dr.Selenaneil ChangMANUAL DIFF REQ NONormalThe [facility] HospitalComment on above:Performed By: #### CBC ####[facility] Esryrpxvgl[address] [place] [address]Dr. Airam DeuceH (RBC) [Entitic mass]28.9 niMghcug26.7-34.0The [facility] Comment on above:Performed By: #### CBC ####[facility] Warbxefxml[address] [place], [place] [address]Dr.Airam TripathiHC (RBC) [Mass/Vol]30.7 g/dL Iiqbsw78.9-35.2The [facility] HospitalComment on above:Performed By: #### CBC ####[facility] Mqdkqmjmts[address] [place], [place] [address]Dr. Airam DeuceV (RBC) [Entitic vol]94.1 qPBnpdmv90.0-99.0The [facility] Comment on above:Performed By: #### CBC ####[facility] Fbspigasss[address] [place], [place] [address]Dr.Airam TripathiMONO #0.7 103/ulNormal0.3-0.[address] [facility] HospitalComment on above:Performed By: #### CBC ####[facility] Wnggjcoxks[address] [place], [place] [address]Dr.Airam Tripathi Monocytes/100 WBC (Bld)8.3 %Normal1.7-12.0The [facility] HospitalComment on above: Performed By: #### CBC ####[facility] Fkeqadzsow026[address] [place], [place] [address]Dr.Selenaneil DeuceNEUT #5.0 103/ulNormal1.4-6.5The [facility] HospitalComment on above:Performed By: #### CBC ####[facility] Zqriyzdzdr7[address] [place], [place] [address]Dr.Selenaneil TripathiNeutrophils/100 WBC (Bld)61.8 %Vqfrah21.0-75.0The [facility] HospitalComment on above:Performed By: #### CBC ####[facility] Fegvdkidaa39[address] [place], [place] [address]Dr.Airam TripathiPlatelet mean volume (Bld) [Entitic vol]9.4 fLCritically low 9.5-13.5The [facility] HospitalComment on above:Performed By: #### CBC ####[facility] [address]igmhrcx[address] [place] [address]Dr. Selenaenil ExwxgBJV206 103/uqPzefbw182-680Bor [facility] HospitalComment on above: Performed By: #### CBC ####[facility] Dzsowcvsqf[address] [place] [address]Dr.Airam ChangRBC3.22 106/ulCritically low4.20-5.40The [facility] HospitalComment on above:Performed By: #### CBC ####[facility] Msnokvgvij[address] [place], [place] [address]Dr.Selenaneil ChangWBC8.1 103/ul Normal4.0-11.0The [facility] HospitalComment on above:Performed By: #### CBC ####[facility] Xntzllnwck[address] [place], [place] [address]Dr. Airam ChangPROF 14(COMP METB)on 64-56-5256Kwwuppw [Mass/Vol]3.2 g/dLCritically low3.4-5.0The [facility] HospitalComment on above:Performed By: #### CMP ####[facility] Wdeztpidlg464[address] [place], [place] [address]Dr. Airam ChangAlbumin/Globulin [Mass ratio]1.0 {ratio}NormalMemorial Health System Comment on above:Performed By: #### CMP ####[facility] Hikotaqllv9[address] [place], [place] [address]Dr.Airam ChangALP [Catalytic activity/Vol] 108 U/PZpvynp18-170Rzo [facility] HospitalComment on above:Performed By: #### CMP ####[facility] Bzfzbnmqix7[address] [place], [place] [address]Dr. Yilan ChangALT [Catalytic activity/Vol]30 U/YTshyyp12-33Nyq [facility] Comment on above:Performed By: #### CMP ####[facility] Hgixjtwdcz013204 [address] [place], [place] [address]Dr.Airam TripathiAnion gap [Moles/Vol]12.8 mmol/LNormalThe [facility] HospitalComment on above:Performed By: #### CMP ####[facility] Ndbzcjrgss9[address] [place] [id number]. Yilan ChangAST [Catalytic activity/Vol]33 U/BFlqhzt69-85Cye [facility] Comment on above:Performed By: #### CMP ####[facility] Idrsjyrbgy4878 [place] [id number].Yilan ChangBilirubin [Mass/Vol]0.2 mg/dL Normal0.2-1.0The [facility] HospitalComment on above:Performed By: #### CMP ####[facility] Tgmoutlvzd3490 [place] [address]Dr. Yilan ChangCalcium [Mass/Vol]8.3 mg/dLCritically low8.5-10.1The [facility] HospitalComment on above:Performed By: #### CMP ####[facility] Bgdnnxeouh[address] [place], [place] [address]Dr.Yilan ChangChloride [Moles/Vol]99 mmol/EBwetmr54-861Jyi [facility] HospitalComment on above:Performed By: #### CMP ####[facility] Ogeryxhqnh094[address] [place], [place] [address]Dr.Yilan ChangCO2 [Moles/Vol]27.6 mmol/ELizgpf31.0-32.0The [facility] HospitalComment on above:Performed By: #### CMP ####[facility] Crwgwmutks5315[address] [place], [place] [address]Dr.Yilan ChangCreatinine [Mass/Vol]2.01 mg/dLCritically high0.55-1.02The [facility] HospitalComment on above:Performed By: #### CMP ####[facility] Wqlmyexnnf17[address] [place], [place] [address]Dr.Yilan ChangEGFR-AF XDBWUAGX55 mL/min/1.73m2 Critically low>=60The [facility] HospitalComment on above:Performed By: #### CMP ####[facility] Trsgcjlzbq5[address] [place], [place] [address]Dr. Yilan ChangEGFR-NON AF NQLKLPVP60 mL/min/1.38l3Teuiaobamn low>=60The [facility] HospitalComment on above:Performed By: #### CMP ####[facility] Kwlatobfgk618[address] [place], [place] [address]Dr.Yilan ChangGlobulin (S) [Mass/Vol]3.2 g/dLNormUC West Chester HospitalComment on above:Performed By: #### CMP ####[facility] Mpvizrqfps668[address] [place], [place] [address]Dr.Yilan ChangGlucose [Mass/Vol]158 mg/dLCritically fmrn51-540Svh [facility] HospitalComment on above:Performed By: #### CMP ####[facility] Vnpwuglfae435[address] [place], [place] [address]Dr.Yilan ChangPotassium [Moles/Vol]5.4 mmol/LCritically high3.5-5.1The [facility] HospitalComment on above:Performed By: #### CMP ####[facility] Bavshjaqoq910[address] [place], [place] [address]Dr.Yilan ChangProtein [Mass/Vol]6.4 g/dLNormal6.4-8.2 The [facility] HospitalComment on above:Performed By: #### CMP ####[facility] Htifpmyagi4416[address] [place], [place] [address]Dr.Yilan ChangSodium [Moles/Vol]134 mmol/LCritically kkn336-480Uom [facility] HospitalComment on above:Performed By: #### CMP ####[facility] Qnbdtfzjyc6519[address] [place], [place] [address]Dr.Yilan ChangUrea nitrogen [Mass/Vol]52.0 mg/dL Critically high7.0-18.0The [facility] HospitalComment on above:Performed By: #### CMP ####[facility] Opkcpiubxs387[address] [place], [place] [address]Dr. Yilan ChangUrea nitrogen/Creatinine [Mass ratio]25.9 mg/mgNoCleveland Clinic Fairview HospitalComment on above:Performed By: #### CMP ####[facility] Bzmauguztv150[address] [place], [place] [address]Dr.Yilan ChangOSMOLALITYon 86-73-4822Jwmosbkwdz [Osmolality]261 mosm/kgCritically npe056-034Yth [facility] HospitalComment on above:Performed By: #### OSMO ####[facility] Betnzwgntx102[address] [place], [place] [address]Dr. Airam TripathiXR HIPS GUMARO 3_4V WO PELVISon 22-56-9231HE HIPS GUMARO 3_4V WO PELVISNormalThe [facility] XR KNEE LT 4V or >on 74-83-4049KC KNEE LT 4V or >NormalThe [facility] HospitalBNP on 60-31-9682Tgywkktccua peptide B (Bld) [Mass/Vol]1168.0 pg/mLCritically high <=900.0The [facility] HospitalComment on above:Performed By: #### BNP, BMP ####[facility] Wtvlnokplh514[address] [place], [place] [address]Dr. Airam TripathiCBC AUTO DIFFon 88-80-8365LEEI #0.0 103/ulNormal0.0-0.1The [facility] HospitalComment on above:Performed By: #### CBC ####[facility] Btshbvmmwx9879[address] [place], [place] [address]Dr.Airam TripathiBasophils/100 WBC (Bld)0.3 %Normal0.2-2.0The [facility] HospitalComment on above:Performed By: #### CBC ####[facility] Hbckmrtpah154704 [address] [place], [place] [address]Dr.Airam ChangEO #0.2 103/ulNormal0.0-0.7The [facility] HospitalComment on above:Performed By: #### CBC ####[facility] Hkwkokurlx554[address] [place], [place] [address]Dr.Airam ChangEosinophils/100 WBC (Bld)1.9 %Normal 0.9-7.0The [facility] HospitalComment on above:Performed By: #### CBC ####[facility] Ffakcgnzbi594[address] [place], [place] [address]Dr.Airam Tripathi Erythrocyte distribution width (RBC) [Ratio]15.2 %Critically high11.0-15.0[facility] SystemComment on above:Performed By: #### CBC ####[facility] Arkxybvzwx5627[address] [place], [place] [address]Dr.Airam TripathiHematocrit (Bld) [Volume fraction]34.3 %Critically low36.0-48.0The [facility] HospitalComment on above:Performed By: #### CBC ####[facility] Tsextvxpux496[address] [place], [place] [address]Dr.Airam TripathiHemoglobin (Bld) [Mass/Vol]11.0 g/dL Critically low12.0-16.0The [facility] HospitalComment on above:Performed By: #### CBC ####[facility] Gtdkmpbanh16350[address] [place], [place] [address]Dr. Airam TripathiIG #0.06 10e3/ulCritically high0.00-0.03The [facility] HospitalComment on above:Performed By: #### CBC ####[facility] Ooadfwjcki857[address] [place], [place] [address]Dr.Airam TripathiIG %0.5 %Normal0.0-0.5The [facility] HospitalComment on above:Performed By: #### CBC ####[facility] Jsdygajpze854[address] [place], [place] [address]Dr.Aiarm TripathiLYMPH #2.3 103/ulNormal1.2-3.8The [facility] HospitalComment on above:Performed By: #### CBC ####[facility] Gcaonozbue3613[address] [place], [place] [address]Dr. Airam TripathiLymphocytes/100 WBC (Bld)20.4 %Critically low20.5-60.0The [facility] HospitalComment on above:Performed By: #### CBC ####[facility] Hegrcrhbzd818[address] [place], [place] [address]Dr.Airam TripathiMANUAL DIFF REQ NONormalThe [facility] HospitalComment on above:Performed By: #### CBC ####[facility] Ucetpmofjg865[address] [place], [place] [address]Dr. Airam TripathiKINGS [facility] (RBC) [Entitic mass]28.7 osSdcqtg08.7-34.0The [facility] Comment on above:Performed By: #### CBC ####[facility] Hiprkzzpkw017[address] [place], [place] [address]Dr.Airam TripathiMCHC (RBC) [Mass/Vol]32.1 g/dL Qmlqao63.9-35.2The [facility] HospitalComment on above:Performed By: #### CBC ####[facility] Epmesetrxl946404 [address] [place], [place] [address]Dr. Airam TripathiMCV (RBC) [Entitic vol]89.6 jXLhowdb19.0-99.0The [facility] Comment on above:Performed By: #### CBC ####[facility] Ingxdgwmdm214[address] [place], [place] [address]Dr.Airam TripathiMONO #0.9 103/ulCritically high0.3-0.8The [facility] HospitalComment on above:Performed By: #### CBC ####[facility] Skvgabwuyl363[address] [place], [place] [address]Dr. Airam TripathiMonocytes/100 WBC (Bld)8.3 %Normal1.7-12.0The [facility] Comment on above:Performed By: #### CBC ####[facility] Agunvcmbhn47[address] [place], [place] [address]Dr.Airam TripathiNEUT #7.8 103/ulCritically high1.4-6.5The [facility] HospitalComment on above:Performed By: #### CBC ####[facility] Xhqditmonh717[address] [place], [place] [address]Dr. Airam TripathiNeutrophils/100 WBC (Bld)68.6 %Fdtgik11.0-75.0The [facility] Comment on above:Performed By: #### CBC ####[facility] Yactvvdgyb428[address] [place], [place] [address]Dr.Airam TripathiPlatelet mean volume (Bld) [Entitic vol]8.9 fLCritically low9.5-13.5The [facility] HospitalComment on above: Performed By: #### CBC ####[facility] Kqqhdrndfj5[address] [place] [address]Dr.Yilan CssyeYKO318 103/ixMdvqju512-262Pgu [facility] HospitalComment on above:Performed By: #### CBC ####[facility] Payyicasas50[address] [place], [place] [address]Dr.Yilan ChangRBC3.83 106/ul Critically low4.20-5.40The [facility] HospitalComment on above:Performed By: #### CBC ####[facility] Ndgkioqfsu295[address] [place], [place] [address]Dr. Yilan FtabxQZP09.4 103/ulCritically high4.0-11.0The [facility] HospitalComment on above:Performed By: #### CBC ####[facility] Cbxjlymlmh3913[address] [place], [place] [address]Dr.Yilan ChangBASO #0.0 103/ulNormal0.0-0.1The [facility] HospitalComment on above:Performed By: #### CBC ####[facility] Oflmdfngiq9829[address] [place], [place] [address]Dr.Yilan ChangBasophils/100 WBC (Bld)0.2 %Normal0.2-2.0The [facility] HospitalCommclaren flint on above:Performed By: #### CBC ####[facility] Qsnognunkw5739[address] [place], [place] [address]Dr.Yilan ChangEO #0.1 103/ulNormal0.0-0.7The [facility] HospitalComment on above:Performed By: #### CBC ####[facility] Lxpaqujfyz490[address] [place], [place] [address]Dr.Yilan ChangEosinophils/100 WBC (Bld)0.7 %Critically low0.9-7.0The [facility] HospitalComment on above:Performed By: #### CBC ####[facility] Qycjxcfhah116[address] [place], [place] [address]Dr. Yilan ChangErythrocyte distribution width (RBC) [Ratio]15.4 %Critically high 11.0-15.0The [facility] HospitalComment on above:Performed By: #### CBC ####[facility] Yzcpycygvi8868 [place] [address]Dr. Selenaneil DeuceHematocrit (Bld) [Volume fraction]33.6 %Critically low36.0-48.0The [facility] HospitalComment on above:Performed By: #### CBC ####[facility] Oquckmxase8602 [place] [address]Dr.Airam TripathiHemoglobin (Bld) [Mass/Vol]10.9 g/dLCritically low12.0-16.0The [facility] HospitalComment on above:Performed By: #### CBC ####[facility] Bfexhfigxy974[address] [place], [place] [address]Dr.Selenalan ChangIG #0.04 10e3/ulCritically high0.00-0.[address] [facility] HospitalComment on above:Performed By: #### CBC ####[facility] Ceswmlabod840[address] [place], [place] [address]Dr.Airam ChangIG % 0.5 %Normal0.0-0.5The [facility] HospitalComment on above:Performed By: #### CBC ####[facility] Ahfkhylesx484[address] [place], [place] [address]Dr. Airam ChangLYMPH #1.1 103/ulCritically low1.2-3.8The [facility] HospitalComment on above:Performed By: #### CBC ####[facility] Ikmnbewbas996[address] [place], [place] [address]Dr.Airam TripathiLymphocytes/100 WBC (Bld)13.3 % Critically low20.5-60.0The [facility] HospitalComment on above:Performed By: #### CBC ####[facility] Ypjhvfzyzo87260[address] [place], [place] [address]Dr. Airam TripathiMANUAL DIFF REQNONormalThe [facility] HospitalComment on above: Performed By: #### CBC ####[facility] Fwuehoqyrm629[address] [place], [place] [address]Dr.Airam TripathiMCH (RBC) [Entitic mass]29.1 pgNormal 26.7-34.0The [facility] HospitalComment on above:Performed By: #### CBC ####[facility] Pepfxbccdb2613 [place] [address]Dr. Selenaneil TripathiMCHC (RBC) [Mass/Vol]32.4 g/bUKspsee30.9-35.2The [facility] Comment on above:Performed By: #### CBC ####[facility] Vnjbxsbfva707[address] [place], [place] [address]Dr.Airam TripathiMCV (RBC) [Entitic vol]89.6 fL Iuytlh15.0-99.0The [facility] HospitalComment on above:Performed By: #### CBC ####[facility] Nhoprwqgnc015[address] [place], [place] [address]Dr. Airam TripathiMONO #0.5 103/ulNormal0.3-0.8The [facility] HospitalComment on above: Performed By: #### CBC ####[facility] Stdpywxyxn4949[address] [place], [place] [address]Dr.Airam TripathiMonocytes/100 WBC (Bld)6.4 %Normal 1.7-12.0The [facility] HospitalComment on above:Performed By: #### CBC ####[facility] Tcrnogsmfv846[address] [place], [place] [address]Dr. Airam TripathiNEUT #6.5 103/ulNormal1.4-6.5The [facility] HospitalComment on above: Performed By: #### CBC ####[facility] Rfobtglaih76[address] [place], [place] [address]Dr.Airam TripathiNeutrophils/100 WBC (Bld)78.9 % Critically high43.0-75.0The [facility] HospitalComment on above:Performed By: #### CBC ####[facility] Mbmcpweehm890[address] [place], [place] [address]Dr. Airam TripathiPlatelet mean volume (Bld) [Entitic vol]9.4 fLCritically low9.5-13.5 The [facility] HospitalComment on above:Performed By: #### CBC ####[facility] Gxcpysozwt989[address] [place], [place] [address]Dr.Yilan EnorpODH182 103/rnZzojro110-815Pqb [facility] HospitalComment on above:Performed By: #### CBC ####[facility] Ohqirdokli7124 [place] [address]Dr. Airam ChangRBC3.75 106/ulCritically low4.20-5.40The [facility] HospitalComment on above:Performed By: #### CBC ####[facility] Tfrkmhyctc3114 [place] [address]Dr.Airam ChangWBC8.3 103/ulNormal4.0-11.0The [facility] HospitalComment on above:Performed By: #### CBC ####[facility] Yicmnumtxh907[address] [place], [place] [address]Dr.Airam ChangCT HEAD WO CON on 29-59-9458TZ HEAD WO CONNormalMemorial Health SystemPROF 14(COMP METB)on 42-97-3978Iriiceq [Mass/Vol]3.2 g/dLCritically low3.4-5.0The [facility] Comment on above:Performed By: #### CMP ####[facility] Jpglpdxnij4319[address] [place], [place] [address]Dr.Airam ChangAlbumin/Globulin [Mass ratio] 0.9 {ratio}NormalThe [facility] HospitalComment on above:Performed By: #### CMP ####[facility] Bipclxitce005[address] [place], [place] [address]Dr. Airam TripathiALP [Catalytic activity/Vol]109 U/GRpieix10-489Sxe [facility] Comment on above:Performed By: #### CMP ####[facility] Wesmmkrivc4599 [place] [address]Dr.Airam ChangALT [Catalytic activity/Vol]25 U/ZXavunu88-14Tzg [facility] HospitalComment on above:Performed By: #### CMP ####[facility] Isuzdlppoq1253 [place] [address]Dr. Airam TripathiAnion gap [Moles/Vol]10.9 mmol/LNormalThe [facility] HospitalComment on above:Performed By: #### CMP ####[facility] Pkfdalodcl010[address] [place], [place] [address]Dr.Yilan ChangAST [Catalytic activity/Vol]24 U/LNormal 15-37The [facility] on above:Performed By: #### CMP ####[facility] Yizwmmrojg645[address] [place], [place] [address]Dr.Yilan Tripathi Bilirubin [Mass/Vol]0.3 mg/dLNormal0.2-1.0The [facility] HospitalComment on above: Performed By: #### CMP ####[facility] Xtmgtzaolw396[address] [place], [place] [address]Dr.Yilan ChangCalcium [Mass/Vol]8.6 mg/dLNormal 8.5-10.1The [facility] HospitalCommclaren flint on above:Performed By: #### CMP ####[facility] Ozyzlwhftg956[address] [place], [place] [address]Dr. Yilan ChangChloride [Moles/Vol]95 mmol/LCritically vri88-918Nmh [facility] on above:Performed By: #### CMP ####[facility] Jlbpzfkvuu575[address] [place], [place] [address]Dr.Yilan ChangCO2 [Moles/Vol] 27.8 mmol/WZojsmp16.0-32.0The [facility] HospitalCommclaren flint on above:Performed By: #### CMP ####[facility] Snvdqunnxq75[address] [place], [place] [address]Dr.Yilan ChangCreatinine [Mass/Vol]1.07 mg/dLCritically high0.55-1.02The [facility] HospitalCommclaren flint on above:Performed By: #### CMP ####[facility] Ifupgbmdry828[address] [place], [place] [address]Dr.Yilan ChangEGFR-AF CUBAN>60Normal>=60The [facility] on above:Performed By: #### CMP ####[facility] Zmuxzvurnx934[address] [place], [place] [address]Dr. Yilan ChangEGFR-NON AF TOOCJWZK48 mL/min/1.60e4Hcckbhijgq low>=60The [facility] Centerment on above:Performed By: #### CMP ####[facility] Qynvnzeekp1236 [place] [address]Dr.Yilan ChangGlobulin (S) [Mass/Vol]3.5 g/dLNormUC [facility] HospitalComment on above:Performed By: #### CMP ####[facility] Lcsmkdarmf7[address] [place] [address]Dr.Yilan ChangGlucose [Mass/Vol]86 mg/mTVkymrn05-258Fpo [facility] Comment on above:Performed By: #### CMP ####[facility] Mqkbvzsfcf163[address] [place], [place] [address]Dr.Yilan ChangPotassium [Moles/Vol]4.7 mmol/LNormal3.5-5.1The [facility] HospitalComment on above:Performed By: #### CMP ####[facility] Cnbfumtbjd2025[address] [place], [place] [address]Dr. Yilan ChangProtein [Mass/Vol]6.7 g/dLNormal6.4-8.2The [facility] HospitalComment on above:Performed By: #### CMP ####[facility] Tfjtegqrln9[address] [place], [place] [address]Dr.Yilan ChangSodium [Moles/Vol]129 mmol/LCritically obr235-699Exc [facility] HospitalComment on above:Performed By: #### CMP ####[facility] Agggphioko016[address] [place], [place] [address]Dr. Yilan ChangUrea nitrogen [Mass/Vol]19.0 mg/dLCritically high7.0-18.0The [facility] HospitalComment on above:Performed By: #### CMP ####[facility] Zecrvhubnr239[address] [place], [place] [address]Dr.Yilan ChangUrea nitrogen/Creatinine [Mass ratio]17.8 mg/mgNoCleveland Clinic Fairview HospitalComment on above:Performed By: #### CMP ####[facility] Ceanaskohb798[address] [place], [place] [address]Dr.Yilan ChangPROF CHEM 8 (BAS METB)on 81-02-6916Bpmbx gap [Moles/Vol]9.0 mmol/LNormalThe [facility] HospitalComment on above:Performed By: #### BNP, BMP ####[facility] Lspxzzhcix567[address] [place], [place] [address]Dr. Yilan ChangCalcium [Mass/Vol]8.5 mg/dLNormal8.5-10.1The [facility] HospitalComment on above:Performed By: #### BNP, BMP ####[facility] Tchkmoczst535[address] [place], [place] [address]Dr. Yilan ChangChloride [Moles/Vol]93 mmol/LCritically fzr64-232Ewd [facility] HospitalComment on above: Performed By: #### BNP, BMP ####[facility] Pafscfhahp[address] [place], [place] [address]Dr. Yilan ChangCO2 [Moles/Vol]28.1 mmol/LNormal 21.0-32.0The [facility] HospitalComment on above:Performed By: #### BNP, BMP ####[facility] Flpyfnpsve916[address] [place], [place] [address]Dr. Yilan ChangCreatinine [Mass/Vol]1.17 mg/dLCritically high0.55-1.02The [facility] HospitalComment on above:Performed By: #### BNP, BMP ####[facility] Laipwusonf432[address] [place], [place] [address]Dr. Yilan ChangEGFR-AF RYMAGPSW25 mL/min/1.09r3Ojhatzoloh low>=60The [facility] HospitalComment on above: Performed By: #### BNP, BMP ####[facility] Ddhkaccubc8[address] [place], [place] [address]Dr. Yilan ChangEGFR-NON AF BZWXHESF10 mL/min/1.73m2 Critically low>=60The [facility] HospitalComment on above:Performed By: #### BNP, BMP ####[facility] Bzhlubuoqk004[address] [place], [place] [address]Dr. Yilan ChangGlucose [Mass/Vol]107 mg/dLCritically ghpb83-563Ken [facility] HospitalComment on above:Performed By: #### BNP, BMP ####[facility] Jfldnnjdak25[address] [place] [address]Dr. Airam ChangPotassium [Moles/Vol]4.1 mmol/LNormal3.5-5.1The [facility] HospitalComment on above: Performed By: #### BNP, BMP ####[facility] Doxftdvejf24[address] [place] [id number]. Yilan ChangSodium [Moles/Vol]126 mmol/LCritically wpd349-878Zbl [facility] HospitalComment on above:Performed By: #### BNP, BMP ####[facility] Afmfigymet[address] [place] [id number]. Yilan ChangUrea nitrogen [Mass/Vol]20.0 mg/dLCritically high7.0-18.0The [facility] HospitalComment on above:Performed By: #### BNP, BMP ####[facility] Xzfwhweotf72[address] [place] [address]Dr. Yilan ChangUrea nitrogen/Creatinine [Mass ratio]17.1 mg/mgNormalThe [facility] HospitalComment on above:Performed By: #### BNP, BMP ####[facility] Rgowxgiaup8[address] [place] [address]Dr. Yineil ChangXR CHEST 1 Von 00-85-7275MT CHEST [address] [facility] HospitalActivated partial thromboplastin time (aPTT) in platelet poor plasma by coagulation aOrdered By: Favian Helm on 11-11-6568eCRS Coag (PPP) [Time]31.7 s25.1-36.5FWVUMedicine Barnesville HospitalAlanine aminotransferase [Enzymatic activity/volume] in Serum or PlasmaOrdered By: Favian Helm on 50-83-0842LMQ [Catalytic activity/Vol]14 U/L7-52[facility] HospitalAlbumin [Mass/volume] in Serum or Plasma by Bromocresol green (BCG) dye binding methoOrdered By: Favian Helm on 92-60-6554Kuqleqa BCG dye [Mass/Vol]3.6 g/dL3.5-5.7FWVUMedicine Barnesville HospitalAlkaline phosphatase [Enzymatic activity/volume] in Serum or PlasmaOrdered By: Favian Helm on 60-56-5332ZGR [Catalytic activity/Vol]84 U/V20-665MkgeemdoaDayton Osteopathic HospitalAspartate aminotransferase [Enzymatic activity/volume] in Serum or PlasmaOrdered By: Favian Helm on 57-22-1999GNC [Catalytic activity/Vol]21 U/L 13-39[facility]opathic HospitalB-Type Natriuretic Peptideon 10-28-2022 Natriuretic peptide B (Bld) [Mass/Vol]551.0 pg/mLHigh5-100[facility]opathic HospitalComment on above:Result Comment: PERFORMED BY: [place] [address] PATHOLOGIST MICA SPLITTER TANNER GAVIN M.D.Performed By: #### [id number], MG, BMP, JOSE, FE and TIBC, RETIC #### [place] [address] USABasophils Auto (Bld) [#/Vol]Ordered By: Favian Helm on 44-09-6124Whsylfxbj (Bld) [#/Vol]0.0 10*3/uL0.0-0.2FWVUMedicine Barnesville HospitalBasophils/100 WBC Auto (Bld)Ordered By: Favian Helm on 10-28-2022 Basophils/100 WBC (Bld)0.4 %.[facility] Osteopathic HospitalBilirubin.total [Mass/volume] in Serum or PlasmaOrdered By: Favian Helm on 41-34-0123Hqycxfufk [Mass/Vol]0.3 mg/dL0.3-1.0[facility]opathic HospitalCT head/brain wo con on 97-91-8890QR head/brain [place] [facility] [address] CT Scan Report Signed Patient: Mabel Moser MR#: [id number] : 1960 Acct:[id number] Age/Sex: 62 / F ADM Date: 10/28/22 Loc: ER Room: Type: [facility] ER Attending Dr: Copies to: Favian [...] Baljinder Ball M.D.10/28/2022 7:46 PM Dictation Location: [place] [address] Transcribed By: [facility] 10/28/221945 Dictated By: Baljinder Ball DO 10/28/221934 Signed By: 10/28/221945NoChildren's Hospital of ColumbusCalcium [Mass/volume] in Serum or PlasmaOrdered By: Favian Helm on 72-61-9884Toqxawr [Mass/Vol]8.2 mg/dL 8.6-10.3FWVUMedicine Barnesville HospitalCarbon dioxide, total [Moles/volume] in Serum or PlasmaOrdered By: Favian Helm on 34-80-4106XL2 [Moles/Vol]25.7 mmol/L 21.0-31.0[facility]opathic HospitalChloride [Moles/volume] in Serum or PlasmaOrdered By: Favian Helm on 30-81-5603Aggofbjj [Moles/Vol]98 mmol/L98-107 [facility] HospitalComplete Blood Count Auto Diffon 10-28-2022 Basophils (Bld) [#/Vol]0.0 10*3/uLNormal0.0-0.2FWVUMedicine [facility]ville Hospital Comment on above:Result Comment: PERFORMED BY: [facility] [address] [place] [address] PATHOLOGIST MICA SPLITTER TANNER GAVIN M.D.Performed By: #### [id number], MG, BMP, JOSE, FE and TIBC, RETIC #### [place] [address] USABasophils/100 WBC (Bld)0.4 %Normal.[facility] Osteopathic HospitalComment on above:Performed By: #### [id number], MG, BMP, JOSE, FE and TIBC, RETIC #### [place] [address] USAEosinophils (Bld) [#/Vol]0.1 10*3/uLNormal0.0-0.45 [facility] HospitalCommclaren flint on above:Performed By: #### [id number], MG, BMP, JOSE, FE and TIBC, RETIC #### [place] [address] USAEosinophils/100 WBC (Bld)1.0 %Normal.[facility]opathic HospitalComment on above:Performed By: #### [id number], MG, BMP, JOSE, FE and TIBC, RETIC #### [place] [address] USAErythrocyte distribution width (RBC) [Ratio]16.5 %High 11.9-15.3FWVUMedicine Barnesville HospitalComment on above:Performed By: #### [id number], MG, BMP, JOSE, FE and TIBC, RETIC #### [place] [address] USAHematocrit (Bld) [Volume fraction]29.9 %Low34.0-46.4 [facility]opathic HospitalComment on above:Performed By: #### [id number], MG, BMP, JOSE, FE and TIBC, RETIC #### [place] [address] USAHemoglobin (Bld) [Mass/Vol]9.6 g/dLLow11.8-15.4FWVUMedicine Barnesville HospitalComment on above:Performed By: #### [id number], MG, BMP, JOSE, FE and TIBC, RETIC #### [facility] [address] [place] [address] USALymphocytes (Bld) [#/Vol]0.8 10*3/uLLow1.00-4.8[facility]opathic HospitalComment on above:Performed By: #### GBPV72IAT, MG, BMP, JOSE, FE and TIBC, RETIC #### [facility] [address] [place] [address] USALymphocytes/100 WBC (Bld)12.8 %Normal.[facility] Osteopathic HospitalComment on above:Performed By: #### [id number], MG, BMP, JOSE, FE and TIBC, RETIC #### [place] [address] USAMCH (RBC) [Entitic mass]28.3 nfNmoafq38.7-34.3FWVUMedicine Barnesville HospitalComment on above:Performed By: #### [id number], MG, BMP, JOSE, FE and TIBC, RETIC #### [place] [address] USAMCV (RBC) [Entitic vol]88.3 pJAlvbml12-241UbovkcvrrDayton Osteopathic HospitalComment on above:Performed By: #### [id number], MG, BMP, JOSE, FE and TIBC, RETIC #### [place] [address] USAMean Corpuscular HGB Conc32.0 g/jDSekvop40.0-35.0[facility] HospitalComment on above:Performed By: #### QTQR96KWH, MG, BMP, JOSE, FE and TIBC, RETIC #### [place] [address] USAMonocytes (Bld) [#/Vol]0.2 10*3/uLNormal0.0-0.8[facility]opathic HospitalComment on above:Performed By: #### JJRE65COB, MG, BMP, JOSE, FE and TIBC, RETIC #### [facility] [address] [place] [address] USAMonocytes/100 WBC (Bld)17.29 %Normal0.00-20.00[facility] Osteopathic HospitalComment on above:Performed By: #### QEVM57ORO, MG, BMP, JOSE, FE and TIBC, RETIC #### [place] [address] USAMonocytes/100 WBC (Bld)2.5 %Normal.[facility] Osteopathic HospitalComment on above:Performed By: #### [id number], MG, BMP, JOSE, FE and TIBC, RETIC #### [place] [address] USANeutrophils (Bld) [#/Vol]5.5 10*3/uLNormal1.8-7.7FWVUMedicine Barnesville HospitalComment on above:Performed By: #### WJNT98PGL, MG, BMP, JOSE, FE and TIBC, RETIC #### [place] [address] USANeutrophils/100 WBC (Bld)83.3 %Normal.[facility] Osteopathic HospitalCommclaren flint on above:Performed By: #### YSRA89HIO, MG, BMP, JOSE, FE and TIBC, RETIC #### [place] [address] USANRBC%0.0 /100{WBC}Normal0-0.5FWVUMedicine Barnesville HospitalCommclaren flint on above:Performed By: #### UFHD54ROM, MG, BMP, JOSE, FE and TIBC, RETIC #### [place] [address] USAPlatelet mean volume (Bld) [Entitic vol]7.3 fLNormal 6.3-10.7FWVUMedicine Barnesville HospitalCommclaren flint on above:Performed By: #### ARJD19SVJ, MG, BMP, JOSE, FE and TIBC, RETIC #### [place] [address] USAPlatelets (Bld) [#/Vol]260 10*3/tVOdarid610-242HipvnanzoDayton Osteopathic HospitalComment on above:Performed By: #### MZSM95ZVV, MG, BMP, JOSE, FE and TIBC, RETIC #### [facility] [address] [place] [address] USARBC (Bld) [#/Vol]3.38 10*6/uLLow3.60-5.00[facility]opathic HospitalComment on above:Performed By: #### [id number], MG, BMP, JOSE, FE and TIBC, RETIC #### [place] [address] USAWBC (Bld) [#/Vol]6.6 10*3/uLNormal3.8-11.6FWVUMedicine Barnesville HospitalComment on above:Performed By: #### [id number], MG, BMP, JOSE, FE and TIBC, RETIC #### [place] [address] USAComprehensive Metabolic Panelon 34-38-3057Vuqpwia [Mass/Vol]3.6 g/dLNormal3.5-5.7FWVUMedicine Barnesville HospitalComment on above:Performed By: #### UYEI84DMC, MG, BMP, JOSE, FE and TIBC, RETIC #### [place] [address] USAAlbumin/Globulin [Mass ratio]1.6 {ratio}NormalDayton Osteopathic HospitalComment on above:Performed By: #### ILQF47ZYN, MG, BMP, JOSE, FE and TIBC, RETIC #### [facility] [address] [place] [address] USAALP [Catalytic activity/Vol]84 U/GMtfllv92-844FjpdjhruoDayton Osteopathic HospitalComment on above:Performed By: #### VMWE17DAW, MG, BMP, JOSE, FE and TIBC, RETIC #### [facility] [address] [place] [address] USAALT [Catalytic activity/Vol]14 U/LNormal7-52[facility]opathic HospitalComment on above:Performed By: #### PFWJ34TGS, MG, BMP, JOSE, FE and TIBC, RETIC #### [place] [address] USAAnion gap [Moles/Vol]10.0 mmol/LNormal6.0-15.0[facility]opathic HospitalComment on above:Performed By: #### RTWX36BFC, MG, BMP, JOSE, FE and TIBC, RETIC #### [place] [address] USAAST [Catalytic activity/Vol]21 U/BFwjqyp18-93GxvbecqcaDayton Osteopathic HospitalComment on above:Performed By: #### USEJ46SUU, MG, BMP, JOSE, FE and TIBC, RETIC #### [place] [address] USABilirubin [Mass/Vol]0.3 mg/dLNormal0.3-1.0[facility] HospitalComment on above:Performed By: #### AYCE75IYF, MG, BMP, JOSE, FE and TIBC, RETIC #### [place] [address] USACalcium [Mass/Vol]8.2 mg/dLLow8.6-10.3FWVUMedicine Barnesville HospitalComment on above:Performed By: #### ZWUF87DDH, MG, BMP, JOSE, FE and TIBC, RETIC #### [place] [address] USAChloride [Moles/Vol]98 mmol/RLfrhkw40-329HgiqsxuvhDayton Osteopathic HospitalComment on above:Performed By: #### ZVUE64BJM, MG, BMP, JOSE, FE and TIBC, RETIC #### [place] [address] USACO2 [Moles/Vol]25.7 mmol/JMqkqrj77.0-31.0[facility] HospitalComment on above:Performed By: #### EMVD47ACE, MG, BMP, JOSE, FE and TIBC, RETIC #### [place] [address] USACreatinine [Mass/Vol]1.23 mg/dLHigh0.60-1.20[facility] HospitalComment on above:Performed By: #### LOPU85ERR, MG, BMP, JOSE, FE and TIBC, RETIC #### [facility] [address] [place] [address] USACreatinine Clr Calc Azylvynf30.79NoChildren's Hospital of ColumbusComment on above:Performed By: #### PREU11BBX, MG, BMP, JOSE, FE and TIBC, RETIC #### [facility] [address] [place] [address] USAGFR/1.73 sq M.predicted MDRD (S/P/Bld) [Vol rate/Area] 50.309 mL/min/{1.73_m2}[facility]htabula County Medical CenterComment on above: Performed By: #### IJVJ07XEQ, MG, BMP, JOSE, FE and TIBC, RETIC #### [facility] [address] [place] [address] USAGlobulin (S) [Mass/Vol]2.3 g/dLNoChildren's Hospital of ColumbusComment on above:Performed By: #### MAZJ97OOH, MG, BMP, JOSE, FE and TIBC, RETIC #### [facility] [address] [place] [address] USAGlucose [Mass/Vol]98 mg/jPBbhkxm61-854IerddmikaDayton Osteopathic HospitalComment on above:Result Comment: Random Glucose Reference Range is dependent on time and content of last meal. Glucose of more than 200 mg/dL in a nonstressed, ambulatory subject supports the diagnosis of Diabetes Mellitus. ADA recommended reference rangePerformed By: #### [id number], MG, BMP, JOSE, FE and TIBC, RETIC #### [facility] [address] [place] [address] USAPotassium [Moles/Vol]4.7 mmol/LNormal3.5-5.1FWVUMedicine Barnesville HospitalComment on above:Performed By: #### [id number], MG, BMP, JOSE, FE and TIBC, RETIC #### [facility] [address] [place] [address] USAProtein [Mass/Vol]5.9 g/dLLow6.4-8.9[facility] HospitalComment on above:Performed By: #### RBLL82BWE, MG, BMP, JOSE, FE and TIBC, RETIC #### [place] [address] USASodium [Moles/Vol]129 mmol/LNnl107-491GemnnvtmgDayton Osteopathic HospitalComment on above:Performed By: #### NZCK38LXU, MG, BMP, JOSE, FE and TIBC, RETIC #### [place] [address] USAUrea nitrogen [Mass/Vol]36 mg/dLHigh7-25[facility] HospitalComment on above:Performed By: #### BDAJ48MZC, MG, BMP, JOSE, FE and TIBC, RETIC #### [place] [address] USACreatine Kinaseon 24-72-8667OV [Catalytic activity/Vol]45 U/FYaepqk39-584FibugtdvrDayton Osteopathic HospitalComment on above:Performed By: #### EJPV76UGJ, MG, BMP, JOSE, FE and TIBC, RETIC #### [place] [address] USACreatine kinase [Enzymatic activity/volume] in Serum or PlasmaOrdered By: Favian Helm on 86-40-7027GF [Catalytic activity/Vol]45 U/L [facility] HospitalCreatinine [Mass/volume] in Serum or PlasmaOrdered By: Favian Helm on 12-07-3107Onbbdwtoja [Mass/Vol]1.23 mg/dL 0.60-1.20[facility]opathic HospitalECG 12 lead ECGon 80-03-5999PJA 12 lead [facility] [place] [address] [place] [address] Electrocardiograph Report Signed Patient: Mabel Moser MR#: [id number] : 1960 Acct:[id number] Age/Sex: 62 / F ADM Date: 10/28/22 Loc: ER Room: Type: [facility] ER Attending Dr: Ordering [...] normal variant Confirmed by Chris MAURO DO ([id number]) on 10/28/2022 8:40:44 PM Referred By: Electronically Signed By:Chris MAURO DO Transcribed By: MUS Signed By Chris Mauro DO 0 10/28/222039NormalDayton Osteopathic HospitalEosinophils Auto (Bld) [#/Vol]Ordered By: Favian Helm on 68-10-8651Bofnqhbibpk (Bld) [#/Vol]0.1 10*3/uL0.0-0.45[facility]opathic HospitalEosinophils/100 WBC Auto (Bld) Ordered By: Favian Helm on 59-47-7585Ainpbbqpiar/100 WBC (Bld)1.0 %.[facility]opathic HospitalErythrocyte distribution width Auto (RBC) [Ratio]Ordered By: Favian Helm on 47-60-2243Hlcwnlsmyio distribution width (RBC) [Ratio]16.5 % 11.9-15.3FWVUMedicine Barnesville HospitalGlobulin Calc (S) [Mass/Vol]Ordered By: Favian Helm on 27-21-7267Ohipvdbh (S) [Mass/Vol]2.3 g/dLDayton Osteopathic HospitalGlucose [Mass/volume] in Serum or PlasmaOrdered By: Favian Helm on 24-25-0031Dhgxqxg [Mass/Vol]98 mg/sV88-282BeuykluhtDayton Osteopathic Hospital Comment on above:ADA recommended reference rangeRandom Glucose Reference Range is dependent on time and content of last meal. Glucose of more than 200 mg/dL in a nonstressed, ambulatory subject supports the diagnosisof Diabetes Mellitus. Hematocrit Auto (Bld) [Volume fraction]Ordered By: Favian Helm on 10-28-2022 Hematocrit (Bld) [Volume fraction]29.9 %34.0-46.4FWVUMedicine Barnesville HospitalHemoglobin [Mass/volume] in BloodOrdered By: Favian Helm on 10-28-2022 Hemoglobin (Bld) [Mass/Vol]9.6 g/dL11.8-15.4FWVUMedicine Barnesville Hospital Laboratory - CoagulationOrdered By: Favian Helm on 37-27-5445VA Coag (PPP) [Time]11.0 s9.0-12.9[facility] Osteopathic HospitalLeukocytes [#/volume] corrected for nucleated erythrocytes in Blood by Automated counOrdered By: Favian Helm on 94-47-5866MJV corrected for nucl RBC Auto (Bld) [#/Vol]6.6 10*3/uL3.8-11.6FWVUMedicine Barnesville HospitalLymphocytes Auto (Bld) [#/Vol] Ordered By: Favian Helm on 16-63-0560Tsnqkaqywjt (Bld) [#/Vol]0.8 10*3/uL 1.00-4.8[facility]opathic HospitalLymphocytes/100 WBC Auto (Bld)Ordered By: Favian Helm on 51-59-3458Xhheikusklp/100 WBC (Bld)12.8 %.[facility] Auto (RBC) [Entitic mass]Ordered By: Favian Helm on 50-53-4268PPZ (RBC) [Entitic mass]28.3 pg24.7-34.3FHighland District HospitalHC Auto (RBC) [Mass/Vol]Ordered By: Favian Helm on 59-99-5665NNLD (RBC) [Mass/Vol]32.0 g/dL32.0-35.0[facility]opathic HospitalMCV Auto (RBC) [Entitic vol]Ordered By: Favian Helm on 82-70-7040VWD (RBC) [Entitic vol]88.3 cO69-961FpbngdvywDayton Osteopathic HospitalMagnesiumon 55-14-5170Eowaamsvh [Mass/Vol]1.9 mg/dLNormal1.9-2.7FWVUMedicine Barnesville HospitalComment on above:Result Comment: PERFORMED BY: [facility] [address] [place] [address] PATHOLOGIST MICA SPLITTER TANNER GAVIN M.D.Performed By: #### DZOX36YCV, MG, BMP, JOSE, FE and TIBC, RETIC #### [facility] [address] [place] [address] USAMagnesium [Mass/volume] in Serum or PlasmaOrdered By: Favian Helm on 06-96-6213Lwwzgmshn [Mass/Vol]1.9 mg/dL1.9-2.7FWVUMedicine Barnesville HospitalMonocyte distribution width [Entitic volume] in Blood by AutomatedOrdered By: Favian Helm on 98-47-0963Mrrbvjvs distribution width Auto (Bld) [Entitic vol]17.29 %0.00-20.00[facility]opathic HospitalMonocytes Auto (Bld) [#/Vol]Ordered By: Favian Helm on 01-35-6940Tnywldrfm (Bld) [#/Vol] 0.2 10*3/uL0.0-0.8[facility]opathic HospitalMonocytes/100 WBC Auto (Bld) Ordered By: Favian Helm on 46-26-5110Xvdgixenn/100 WBC (Bld)2.5 %.[facility]opathic HospitalNatriuretic peptide B [Mass/Vol]Ordered By: Favian Helm on 93-07-4941Ndnkyiaidqd peptide B (Bld) [Mass/Vol]551.0 pg/mL5-100[facility]opathic HospitalNeutrophils Auto (Bld) [#/Vol]Ordered By: Favian Helm on 34-18-5215Nmwwmjzyniy (Bld) [#/Vol]5.5 10*3/uL1.8-7.7FWVUMedicine Barnesville HospitalNeutrophils/100 WBC Auto (Bld)Ordered By: Favian Helm on 10-28-2022 Neutrophils/100 WBC (Bld)83.3 %.[facility] HospitalNo Panel InformationOrdered By: Favian Helm on 45-07-3221Clpvxvaqm GFR (CKD-EPI)50.309 mL/MinDayton Osteopathic HospitalPharmacy Creatinine Clearance (Chem48.79 [facility] HospitalNucleated erythrocytes [Presence] in Blood by Automated countOrdered By: Favian Helm on 54-59-7315Ibwgjezhk RBC Auto Ql (Bld) 0.0 /100{WBC}0-0.5FWVUMedicine Barnesville HospitalPartial Thromboplastin Timeon 99-81-4679xHZI Coag (Bld) [Time]31.7 qAycezk20.1-36.5FWVUMedicine Barnesville HospitalComment on above:Result Comment: PERFORMED BY: [place] [address] PATHOLOGIST MICA SPLITTER TANNER GAVIN M.D.Performed By: #### XELP76LAP, MG, BMP, JOSE, FE and TIBC, RETIC #### [place] [address] USAPlatelet mean volume Auto (Bld) [Entitic vol]Ordered By: Favian Helm on 14-03-8323Qvrxlkeh mean volume (Bld) [Entitic vol]7.3 fL6.3-10.7 [facility] HospitalPlatelet poor plasma international normalized ratio (INR) by coagulation assay (relatOrdered By: Favian Helm on 66-37-1949ZNK Coag (PPP) [Relative time]1.0 {INR}[facility] HospitalComment on above:INR Therapeutic Range A) Pre- [...] Auto (Bld) [#/Vol]Ordered By: Favian Helm on 09-66-5591Kfqoozubn (Bld) [#/Vol]260 10*3/yK685-653GttptczndDayton Osteopathic HospitalPotassium [Moles/volume] in Serum or PlasmaOrdered By: Favian Helm on 73-36-2668Dnouregnx [Moles/Vol]4.7 mmol/L3.5-5.1FWVUMedicine Barnesville HospitalProtein [Mass/volume] in Serum or PlasmaOrdered By: Favian Helm on 41-03-1320Oxqwdsv [Mass/Vol]5.9 g/dL6.4-8.9[facility] Prothrombin Time INRon 83-91-4670CMQ Coag (PPP) [Relative time]1.0 {INR}Normal [facility] HospitalComment on above:Result Comment: INR Therapeutic Range [...] heart valves: 3 - 4.5Performed By: #### PZBM52SEU, MG, BMP, JOSE, FE and TIBC, RETIC #### [facility] [address] [place] [address] USAPT Coag (PPP) [Time]11.0 sNormal9.0-12.9[facility]opathic HospitalComment on above:Performed By: #### RAWZ74XNF, MG, BMP, JOSE, FE and TIBC, RETIC #### [facility] [address] [place] [address] USARBC Auto (Bld) [#/Vol]Ordered By: Favian Helm on 54-77-5901SPX (Bld) [#/Vol]3.38 10*6/uL3.60-5.00Marietta Memorial Hospitalerum or plasma albumin/globulin mass ratioOrdered By: Favian Helm on 87-54-6104Feneohm/Globulin [Mass ratio]1.6 {ratio}[facility] Hospitalerum or plasma anion gap determinationOrdered By: Favian Helm on 99-42-7540Kfddz gap [Moles/Vol]10.0 mmol/L6.0-15.0[facility] Hospitalodium [Moles/volume] in Serum or PlasmaOrdered By: Favian Helm on 60-81-1848Yjigpm [Moles/Vol]129 mmol/A022-736YhyehkwncDayton Osteopathic Hospital Troponin I High Sensitivityon 71-28-6971Suhpzlok I High Sensitivity5.8 pg/mL Normal0.0-15.0[facility] HospitalComment on above:Result Comment: PERFORMED BY: [address] [address] PATHOLOGIST MICA SPLITTER TANNER GAVIN M.D.Performed By: #### TDSV37PDT, MG, BMP, JOSE, FE and TIBC, RETIC #### [facility] [address] [place] [address] USATroponin I.cardiac [Mass/volume] in Serum or Plasma by Detection limit <= 0.01 ng/Ordered By: Favian Helm on 70-92-9696Ssoneopf I.cardiac DL <= 0.01 ng/mL [Mass/Vol]5.8 pg/mL0.0-15.0[facility]opathic HospitalUrea nitrogen [Mass/volume] in Serum or PlasmaOrdered By: Favian Helm on 45-29-3984Pbfq nitrogen [Mass/Vol]36 mg/dL7-25[facility] WBC Auto (Bld) [#/Vol]Ordered By: Favian Helm on 28-41-5438OHM (Bld) [#/Vol]6.6 10*3/uL3.8-11.6FWVUMedicine Barnesville HospitalXR chest 2V*on 07-71-3186EC chest 2V*[facility] [place] [address] [place] [address] XRay Report Signed Patient: Mabel Moser MR#: [id number] : 1960 Acct:[id number] Age/Sex: 62 / F ADM Date: 10/28/22 Loc: ER Room: Type: [facility] ER Attending Dr: Copies to: Favian Helm PA-C Ordering Provider: Favian Helm PA-C Date of Service: 10/28/22 XR/XR chest 2V*: Shortness of Breath/Dyspnea Plain film chest 2 view HISTORY: Fluid overload. Shortness of breath. Headache. COMPARISON: 08/31/2018 FINDINGS: SUPPORT DEVICES: None POSTSURGICAL CHANGES: Right Bvpiri-n-Xxon intact with tip overlying the distal SVC. HEART: Within normal limits PULMONARY RAI: Within normal limits MEDIASTINUM: Unremarkable LUNGS AND PLEURA: No acute lung process, pleural effusion or pneumothorax identified. BONY STRUCTURES: Intact ADDITIONAL FINDINGS None XR/XR chest 2V* IMPRESSION: No acute process. Impression dictated by: Baljinder Ball M.D.10/28/2022 7:50 PM Dictation Location: [place] [address] Transcribed By: [facility] 10/28/221949 Dictated By: Baljinder Ball DO 10/28/221945 Signed By: 10/28/221949[facility] County Medical CenterBNPon 12-06-3186Ohfcxsmgprz peptide B (Bld) [Mass/Vol]2657.0 pg/mLCritically high<=900.0The [facility] Charles HospitalComment on above:Performed By: #### CMP, BNP ####[facility] Ahbn[address]sic[address] [place], [place] [address]Dr. Yilan ChangCBC AUTO DIFF on 78-38-6131LXEV #0.0 103/ulNormal0.0-0.1The [facility] Charles HospitalComment on above: Performed By: #### CBC ####[facility] P[address] [place], [place] [address]Dr.Yilan ChangBasophils/100 WBC (Bld)0.5 %Normal 0.2-2.0The [facility] Charles HospitalComment on above:Performed By: #### CBC ####[facility] Qhxanhqs[address] [place], [place] [address]Dr.Yilan ChangEO # 0.3 103/ulNormal0.0-0.7The [facility] Charles HospitalComment on above:Performed By: #### CBC ####[facility] Fbiekhoqir[address] [place], [place] [address]Dr. Yilan ChangEosinophils/100 WBC (Bld)4.8 %Normal0.9-7.0The [facility] Comment on above:Performed By: #### CBC ####[facility] [address] [place] [address]Dr.Selenaneil ChangErythrocyte distribution width (RBC) [Ratio]15.5 %Critically high11.0-15.0The [facility] Charles HospitalComment on above:Performed By: #### CBC ####[facility] Ufelurghon[address] [place], [place] [address]Dr.Selenaneil ChangHematocrit (Bld) [Volume fraction]27.7 % Critically low36.0-48.0The [facility] HospitalComment on above:Performed By: #### CBC ####[facility] Jzeftkrg[address] [place], [place] [address]Dr. Airam ChangHemoglobin (Bld) [Mass/Vol]8.8 g/dLCritically low12.0-16.0The [facility] HospitalComment on above:Performed By: #### CBC ####[facility] [address]tars[address] [place], [place] [address]Dr.Airam ChangIG #0.03 10e3/ulNormal0.00-0.03The [facility] Charles HospitalComment on above:Performed By: #### CBC ####[facility] R[address]wh[address]zy[address] [place], [place] [address]Dr. Airam ChangIG %0.5 %Normal0.0-0.5The [facility] Charles HospitalComment on above:Performed By: #### CBC ####[facility] Yoieykafeb[address] [place], [place] [address]Dr.Airam ChangLYMPH #1.6 103/ulNormal1.2-3.8The [facility] Comment on above:Performed By: #### CBC ####[facility] Qudjpzedmp[address] [place], [place] [address]Dr.Airam TripathiLymphocytes/100 WBC (Bld)25.5 %Bqetvj90.5-60.0The [facility] Charles HospitalComment on above:Performed By: #### CBC ####[facility] Zcpyzfull[address] [place], [place] [address]Dr. Selenalan DeuceMANUAL DIFF REQNONormalThe [facility] HospitalComment on above: Performed By: #### CBC ####[facility] [address] [place] [address]Dr.Airam TripathiH (RBC) [Entitic mass]29.0 pgNormal 26.7-34.0[facility] HospitalComment on above:Performed By: #### CBC ####[facility] [address] [place] [address]Dr. Airam TripathiHC (RBC) [Mass/Vol]31.8 g/mIVawhtd77.9-35.2The [facility] Comment on above:Performed By: #### CBC ####[facility] [address] [place] [address]Dr.Airam DeuceMCV (RBC) [Entitic vol]91.4 fL Oljxdy00.0-99.0[facility] HospitalComment on above:Performed By: #### CBC ####[facility] Fre[address] [place], [place] [address]Dr. Airam DeuceMONO #0.5 103/ulNormal0.3-0.8[facility] HospitalComment on above: Performed By: #### CBC ####[facility] [address] [place], [place] [address]Dr.Airam DeuceMonocytes/100 WBC (Bld)7.5 %Normal 1.7-12.0[facility] HospitalComment on above:Performed By: #### CBC ####[facility] Ntreurpfc[address] [place], [place] [address]Dr. Airam DeuceNEUT #3.9 103/ulNormal1.4-6.5[facility] HospitalComment on above: Performed By: #### CBC ####[facility] [address]om[address] [place], [place] [address]Dr.Airam DeuceNeutrophils/100 WBC (Bld)61.2 %Normal 43.0-75.0[facility] HospitalComment on above:Performed By: #### CBC ####[facility] [facility] Knmugmgfrk[address] [place], [place] [address]Dr. Airam DeucePlatelet mean volume (Bld) [Entitic vol]9.4 fLCritically low9.5-13.[address] [facility] HospitalComment on above:Performed By: #### CBC ####[facility] [address]tu[address] [place] [address]Dr.Airam TripathiPLT247 103/uvLjuovq626-583Cov [facility] HospitalComment on above:Performed By: #### CBC ####[facility] Nhlszuptvc[address] [place], [place] [address]Dr. Airam TripathiRBC3.03 106/ulCritically low4.20-5.40The [facility] HospitalComment on above:Performed By: #### CBC ####[facility] Stwdvsvqcf[address] [place], [place] [address]Dr.Airam TripathiWBC6.4 103/ulNormal4.0-11.0The [facility] HospitalComment on above:Performed By: #### CBC ####[facility] Ahwvfqekeg[address] [place], [place] [address]Dr.Airam TripathiPROF 14(COMP METB)on 30-23-4895Ztttjih [Mass/Vol]2.5 g/dLCritically low3.4-5.0The [facility] HospitalComment on above:Performed By: #### CMP, BNP ####[facility] Mosylcnvcf94[address] [place], [place] [address]Dr. Airam Tripathi Albumin/Globulin [Mass ratio]0.9 {ratio}NormalThe [facility] HospitalComment on above:Performed By: #### CMP, BNP ####[facility] Pgusnginsq[address] [place], [place] [address]Dr. Airam TripathiALP [Catalytic activity/Vol]108 U/L Vppkue29-456Bmx [facility] HospitalComment on above:Performed By: #### CMP, BNP ####[facility] Qzwcvozcmt[address] [place], [place] [address]Dr. Airam TripathiALT [Catalytic activity/Vol]20 U/KJlucuv95-50Qvz [facility] Comment on above:Performed By: #### CMP, BNP ####[facility] Cxyxkrurzj[address] [place], [place] [address]Dr. Yilan ChangAnion gap [Moles/Vol]10.4 mmol/LNormalThe [facility] HospitalComment on above:Performed By: #### CMP, BNP ####[facility] Cjuiugdruw[address] [place], [place] [address]Dr. Yilan ChangAST [Catalytic activity/Vol]20 U/BDhypcs01-52Ngh [facility] HospitalComment on above:Performed By: #### CMP, BNP ####[facility] Hlgnmdiqwi045[address] [place], [place] [address]Dr. Yilan Tripathi Bilirubin [Mass/Vol]0.2 mg/dLNormal0.2-1.0The [facility] HospitalComment on above: Performed By: #### CMP, BNP ####[facility] Pkgleylsse[address] [place], [place] [address]Dr. Yilan ChangCalcium [Mass/Vol]8.0 mg/dLCritically low8.5-10.1The [facility] HospitalComment on above:Performed By: #### CMP, BNP ####[facility] Iahbvlgccr47[address] [place], [place] [address]Dr. Yilan ChangChloride [Moles/Vol]100 mmol/ALrzybg28-382Tbr [facility] Comment on above:Performed By: #### CMP, BNP ####[facility] Zyfroswvza9[address] [place], [place] [address]Dr. Yilan ChangCO2 [Moles/Vol]28.6 mmol/CZnsrkf72.0-32.0The [facility] HospitalComment on above: Performed By: #### CMP, BNP ####[facility] Rfxperfeei08[address] [place], [place] [address]Dr. Yilan ChangCreatinine [Mass/Vol]1.66 mg/dL Critically high0.55-1.02The [facility] HospitalComment on above:Performed By: #### CMP, BNP ####[facility] Njaxewstfm156[address] [place], [place] [address]Dr. Yilan ChangEGFR-AF HPSKVUCR99 mL/min/1.91q4Qgsorukvyc low>=60The [facility] HospitalComment on above:Performed By: #### CMP, BNP ####[facility] Mhykqgjwsy[address] [place] [address]Dr. Yilan ChangEGFR- NON AF MKXMQVSH38 mL/min/1.26l5Lxzrwmrjzc low>=60The [facility] HospitalComment on above:Performed By: #### CMP, BNP ####[facility] Hgswhsgtmc76[address] [place] [address]Dr. Yilan ChangGlobulin (S) [Mass/Vol]2.8 g/dL NormalThe [facility] HospitalComment on above:Performed By: #### CMP, BNP ####[facility] Kqrvwtibrz095[address] [place], [place] [address]Dr. Yilan ChangGlucose [Mass/Vol]102 mg/kSRwkkjg57-696Jyc [facility] HospitalComment on above:Performed By: #### CMP, BNP ####[facility] Cejisldswt817[address] [place], [place] [address]Dr. Yilan ChangPotassium [Moles/Vol]5.0 mmol/L Normal3.5-5.1The [facility] HospitalComment on above:Performed By: #### CMP, BNP ####[facility] Swafyyakkv814[address] [place], [place] [address]Dr. Yilan ChangProtein [Mass/Vol]5.3 g/dLCritically low6.4-8.2The [facility] Comment on above:Performed By: #### CMP, BNP ####[facility] Eincunnmyx[address] [place], [place] [address]Dr. Yilan ChangSodium [Moles/Vol]134 mmol/LCritically lpu040-793Avg [facility] HospitalComment on above: Performed By: #### CMP, BNP ####[facility] Pemnfzscyf[address] [place], [place] [address]Dr. Yilan ChangUrea nitrogen [Mass/Vol]45.0 mg/dL Critically high7.0-18.0The [facility] HospitalComment on above:Performed By: #### CMP, BNP ####[facility] Udhosjkozz406[address] [place], [place] [address]Dr. Yilan ChangUrea nitrogen/Creatinine [Mass ratio]27.1 mg/mgNormalThe [facility] HospitalComment on above:Performed By: #### CMP, BNP ####[facility] Tvmftzgxke[address] [place] [address]Dr. Airam TripathiBNPon 21-73-4719Wbksbqojbgi peptide B (Bld) [Mass/Vol]4569.0 pg/mLCritically high <=900.0The [facility] HospitalComment on above:Performed By: #### CMP, BNP ####[facility] Nffuevjcqg89[address] [place] [address]Dr. Selenaneil DeuceCBC AUTO DIFFon 04-58-7592JJMN #0.0 103/ulNormal0.0-0.1The [facility] on above:Performed By: #### CBC ####[facility] Ngnegnwwlx32[address] [place] [address]Dr.Airam ChangBasophils/100 WBC (Bld)0.5 %Normal0.2-2.0The [facility] on above:Performed By: #### CBC ####[facility] Dvgfdoagic[address] [place], [place] [address]Dr.Selenalan ChangEO #0.3 103/ulNormal0.0-0.7The [facility] on above:Performed By: #### CBC ####[facility] Pujvltoaal[address] [place], [place] [address]Dr.Airam ChangEosinophils/100 WBC (Bld)5.6 %Normal 0.9-7.0The [facility] Centerment on above:Performed By: #### CBC ####[facility] Dkvnkbsdkp206[address] [place], [place] [address]Dr.Airam Tripathi Erythrocyte distribution width (RBC) [Ratio]15.7 %Critically high11.0-15.0The [facility] on above:Performed By: #### CBC ####[facility] Qhyqvylvyk[address] [place], [place] [address]Dr.Airam TripathiHematocrit (Bld) [Volume fraction]30.1 %Critically low36.0-48.0The [facility] HospitalComment on above:Performed By: #### CBC ####[facility] Jabsuplbgc[address] [place] [address]Dr.Airam ChangHemoglobin (Bld) [Mass/Vol]9.2 g/dL Critically low12.0-16.0The [facility] HospitalComment on above:Performed By: #### CBC ####[facility] Ahpkyxhvhs[address] [place], [place] [address]Dr. Selenalan ChangIG #0.03 10e3/ulNormal0.00-0.03The [facility] HospitalComment on above: Performed By: #### CBC ####[facility] Siflxbuspy206[address] [place], [place] [address]Dr.Airam TriptahiIG %0.5 %Normal0.0-0.5The [facility] HospitalComment on above:Performed By: #### CBC ####[facility] Ysquaehsqq425[address] [place], [place] [address]Dr.Airam DeuceLYMPH #1.7 103/ulNormal1.2-3.8The [facility] HospitalComment on above:Performed By: #### CBC ####[facility] Lznrrxqgph765[address] [place], [place] [address]Dr. Selenaneil TripathiLymphocytes/100 WBC (Bld)28.9 %Wspzqb00.5-60.0The [facility] Comment on above:Performed By: #### CBC ####[facility] Brhedutxam[address] [place], [place] [address]Dr.Airam TripathiMANUAL DIFF REQNONormalThe [facility] HospitalComment on above:Performed By: #### CBC ####[facility] Ekchdntbub7[address] [place], [place] [address]Dr.Airam TripathiH (RBC) [Entitic mass]28.4 omMjygjg46.7-34.0The [facility] HospitalComment on above: Performed By: #### CBC ####[facility] Dzxhmrnnes83[address] [place], [place] [address]Dr.Airam TripathiNASSAU [facility] (RBC) [Mass/Vol]30.6 g/dLNormal 29.9-35.2The [facility] HospitalComment on above:Performed By: #### CBC ####[facility] Iqawrsillv15[address] [place] [address]Dr. Airam DeuceMCV (RBC) [Entitic vol]92.9 sDMizhht68.0-99.0The [facility] Comment on above:Performed By: #### CBC ####[facility] Yqxgbajfst[address] [place], [place] [address]Dr.Airam TripathiMONO #0.5 103/ulNormal0.3-0.8 [facility]:Performed By: #### CBC ####[facility] Wgpxzryslv3669[address] [place], [place] [address]Dr.Airam Tripathi Monocytes/100 WBC (Bld)8.5 %Normal1.7-12.0The [facility] HospitalComment on above: Performed By: #### CBC ####[facility] Gmvvwsvprh9[address] [place], [place] [address]Dr.Airam TripathiNEUT #3.2 103/ulNormal1.4-6.5The [facility] HospitalComment on above:Performed By: #### CBC ####[facility] Wqrlxhsdbh324[address] [place], [place] [address]Dr.Selenaneil TripathiNeutrophils/100 WBC (Bld)56.0 %Lcogzx08.0-75.0The [facility]Comment on above:Performed By: #### CBC ####[facility] Oakmmzxnex[address] [place], [place] [address]Dr.Sleenaneil TripathiPlatelet mean volume (Bld) [Entitic vol]9.4 fLCritically low 9.5-13.5The [facility]Comment on above:Performed By: #### CBC ####[facility] Wpojkfutkv5[address] [place], [place] [address]Dr. Airam TripathiPLT272 103/aeThduti407-073Prt [facility] HospitalComment on above: Performed By: #### CBC ####[facility] Tloqfsepbo[address] [place], [place] [address]Dr.Airam TripathiRBC3.24 106/ulCritically low4.20-5.40The [facility] HospitalComment on above:Performed By: #### CBC ####[facility] Uckeeqwnmu[address] [place], [place] [address]Dr.Airam ChangWBC5.8 103/ul Normal4.0-11.0The [facility] HospitalComment on above:Performed By: #### CBC ####[facility] Lkpzfyjkuy228[address] [place], [place] [address]Dr. Airam ChangOSMOLALITYon 57-03-2807Baiendsmtb [Osmolality]282 mosm/kgNormal 275-295The [facility] HospitalComment on above:Performed By: #### OSMO ####[facility] Atwlwsgldf029[address] [place], [place] [address]Dr. Yilan ChangPROF 14(COMP METB)on 96-11-5167Bznniks [Mass/Vol]2.7 g/dLCritically low3.4-5.0The [facility] HospitalComment on above:Performed By: #### CMP, BNP ####[facility] Rwuqxsgbjp360[address] [place], [place] [address]Dr. Selenalan ChangAlbumin/Globulin [Mass ratio]0.9 {ratio}Normal[facility] Comment on above:Performed By: #### CMP, BNP ####[facility] Yayuuwvpcj186[address] [place], [place] [address]Dr. Selenalan ChangALP [Catalytic activity/Vol]122 U/LCritically vaee12-122Vat [facility] HospitalComment on above: Performed By: #### CMP, BNP ####[facility] Ewrqafwwkt[address] [place], [place] [address]Dr. Yilan ChangALT [Catalytic activity/Vol]23 U/L Lmsxht26-09Rbq [facility] HospitalComment on above:Performed By: #### CMP, BNP ####[facility] Izwrheskgq[address] [place], [place] [address]Dr. Selenalan ChangAnion gap [Moles/Vol]10.5 mmol/LNormalThe [facility] HospitalComment on above:Performed By: #### CMP, BNP ####[facility] Joawmzzbhd[address] [place] [address]Dr. Yilan ChangAST [Catalytic activity/Vol]22 U/L Jrggnr60-48Uuc [facility] HospitalComment on above:Performed By: #### CMP, BNP ####[facility] Tizqaeqqlj44[address] [place], [place] [address]Dr. Yilan ChangBilirubin [Mass/Vol]0.2 mg/dLNormal0.2-1.0The [facility] Comment on above:Performed By: #### CMP, BNP ####[facility] Fyrhbmudfx[address] [place], [place] [address]Dr. Yilan ChangCalcium [Mass/Vol]8.3 mg/dLCritically low8.5-10.1The [facility] HospitalComment on above: Performed By: #### CMP, BNP ####[facility] Gmffaukdvg[address] [place], [place] [address]Dr. Yilan ChangChloride [Moles/Vol]102 mmol/LNormal 98-107The [facility] HospitalComment on above:Performed By: #### CMP, BNP ####[facility] Rqgyzosgrq925[address] [place], [place] [address]Dr. Yilan ChangCO2 [Moles/Vol]29.7 mmol/JWnitcl37.0-32.0The [facility] HospitalComment on above:Performed By: #### CMP, BNP ####[facility] Epvckggmyv80230[address] [place], [place] [address]Dr. Yilan ChangCreatinine [Mass/Vol]1.31 mg/dL Critically high0.55-1.02The [facility] HospitalComment on above:Performed By: #### CMP, BNP ####[facility] Egrwdurhrr[address] [place], [place] [address]Dr. Yilan ChangEGFR-AF BIXEYMZE32 mL/min/1.67m1Lwlermcjha low>=60The [facility] HospitalComment on above:Performed By: #### CMP, BNP ####[facility] Ymtxrqulsm25[address] [place], [place] [address]Dr. Yilan ChangEGFR- NON AF VLOIZARZ20 mL/min/1.86q0Byyuklvfch low>=60The [facility]Comment on above:Performed By: #### CMP, BNP ####[facility] Fwmzatovyf236[address] [place], [place] [address]Dr. Yilan ChangGlobulin (S) [Mass/Vol]2.9 g/dL NormalThe [facility] HospitalComment on above:Performed By: #### CMP, BNP ####[facility] Ifaecwpeyv025[address] [place], [place] [address]Dr. Yilan ChangGlucose [Mass/Vol]94 mg/vSIkecnt49-748Uby [facility] HospitalComment on above:Performed By: #### CMP, BNP ####[facility] Vdufkowrdy[address] [place], [place] [address]Dr. Yilan ChangPotassium [Moles/Vol]4.2 mmol/L Normal3.5-5.1The [facility] HospitalComment on above:Performed By: #### CMP, BNP ####[facility] Ityhhjpynj878[address] [place], [place] [address]Dr. Yilan ChangProtein [Mass/Vol]5.6 g/dLCritically low6.4-8.2The [facility] Comment on above:Performed By: #### CMP, BNP ####[facility] Nbjlkvmvrk712[address] [place], [place] [address]Dr. Yilan ChangSodium [Moles/Vol]138 mmol/ZHqaqfo523-477Jbe [facility] HospitalComment on above: Performed By: #### CMP, BNP ####[facility] Quzzzkkpox133[address] [place], [place] [address]Dr. Yilan ChangUrea nitrogen [Mass/Vol]33.0 mg/dL Critically high7.0-18.0The [facility] HospitalComment on above:Performed By: #### CMP, BNP ####[facility] Mgspnpqnke588[address] [place], [place] [address]Dr. Yilan ChangUrea nitrogen/Creatinine [Mass ratio]25.2 mg/mgNormalThe [facility] HospitalComment on above:Performed By: #### CMP, BNP ####[facility] Zdxrqdaeyp112[address] [place], [place] [address]Dr. Yilan ChangBNPon 09-68-0616Botdcuuayar peptide B (Bld) [Mass/Vol]3805.0 pg/mLCritically high <=900.0The [facility] HospitalComment on above:Performed By: #### HSTROPN, BNP, CMP ####[facility] Pyzkedojup[address] [place] [address]Dr. Airam TripathiCBC AUTO DIFFon 11-57-7544ZQLJ #0.0 103/ulNormal0.0-0.1The [facility] HospitalComment on above:Performed By: #### CBC ####[facility] Sdbsqfgeql466[address] [place], [place] [address]Dr.Airam TripathiBasophils/100 WBC (Bld)0.3 %Normal0.2-2.0The [facility] HospitalComment on above:Performed By: #### CBC ####[facility] Qcowquntyq136[address] [place], [place] [address]Dr.Selenalan ChangEO #0.3 103/ulNormal0.0-0.7The [facility] HospitalComment on above:Performed By: #### CBC ####[facility] Qezcsspvev65280[address] [place], [place] [address]Dr.Airam ChangEosinophils/100 WBC (Bld)4.2 %Normal 0.9-7.0The [facility] Centerment on above:Performed By: #### CBC ####[facility] Jwaffkrtch39[address] [place], [place] [address]Dr.Airam Tripathi Erythrocyte distribution width (RBC) [Ratio]15.6 %Critically high11.0-15.0The [facility] HospitalComment on above:Performed By: #### CBC ####[facility] Fnxwsxgpsj2816[address] [place], [place] [address]Dr.Airam TripathiHematocrit (Bld) [Volume fraction]30.0 %Critically low36.0-48.0The [facility] HospitalComment on above:Performed By: #### CBC ####[facility] Kavvhjosty58[address] [place], [place] [address]Dr.Airam TripathiHemoglobin (Bld) [Mass/Vol]9.3 g/dL Critically low12.0-16.0The [facility] HospitalComment on above:Performed By: #### CBC ####[facility] Sfeibezepo22[address] [place], [place] [address]DrKianna TripathiIG #0.03 10e3/ulNormal0.00-0.03The [facility] HospitalComment on above: Performed By: #### CBC ####[facility] Folrvflmgk755[address] [place], [place] [address]Dr.Airam TripathiIG %0.5 %Normal0.0-0.5The [facility] HospitalComment on above:Performed By: #### CBC ####[facility] Hekjfnugos[address] [place], [place] [address]Dr.Airam DossH #1.4 103/ulNormal1.2-3.8The [facility] HospitalComment on above:Performed By: #### CBC ####[facility] Ddccwhnvri012[address] [place], [place] [address]Dr. Airam Dosshocytes/100 WBC (Bld)22.5 %Hzruob39.5-60.0The [facility] Comment on above:Performed By: #### CBC ####[facility] Bfoekqzbfv29[address] [place], [place] [address]Dr.Airam TripathiMANUAL DIFF REQNONormalThe [facility] HospitalComment on above:Performed By: #### CBC ####[facility] Dpxlnoxqdq639[address] [place], [place] [address]Dr.Airam TripathiK[facility] (RBC) [Entitic mass]28.7 dmEjwhwi18.7-34.0The [facility] HospitalComment on above: Performed By: #### CBC ####[facility] Gyemxepbxs984[address] [place], [place] [address]Dr.Airam TripathiNASSAU UNIVERSITY [facility] (RBC) [Mass/Vol]31.0 g/dLNormal 29.9-35.2The [facility] HospitalComment on above:Performed By: #### CBC ####[facility] Dpfbjtsjfu454[address] [place], [place] [address]Dr. Airam TripathiMCV (RBC) [Entitic vol]92.6 sCFrkhuz82.0-99.0The [facility] Comment on above:Performed By: #### CBC ####[facility] Bydbmqvvkp[address] [place], [place] [address]Dr.Airam TripathiMONO #0.4 103/ulNormal0.3-0.[address] [facility] HospitalComment on above:Performed By: #### CBC ####[facility] Dkxtsrjyap185[address] [place], [place] [address]Dr.Airam Tripathi Monocytes/100 WBC (Bld)7.3 %Normal1.7-12.0The [facility] HospitalComment on above: Performed By: #### CBC ####[facility] Ddxsvdbjtx5[address] [place], [place] [address]Dr.Airam TripathiNEUT #3.9 103/ulNormal1.4-6.5The [facility] HospitalComment on above:Performed By: #### CBC ####[facility] Zuyucsilme244[address] [place], [place] [address]Dr.Airam TripathiNeutrophils/100 WBC (Bld)65.2 %Xwoqzr79.0-75.0The [facility] HospitalComment on above:Performed By: #### CBC ####[facility] Jtbigelvnd[address] [place], [place] [address]Dr.Airam TripathiPlatelet mean volume (Bld) [Entitic vol]9.0 fLCritically low 9.5-13.5The [facility] HospitalComment on above:Performed By: #### CBC ####[facility] Xaoeqfohtq[address] [place], [place] [address]Dr. Airam TripathiPLT247 103/nbJgvxfl034-219Vvm [facility] HospitalComment on above: Performed By: #### CBC ####[facility] Fsqkmanxpm25[address] [place], [place] [address]Dr.Airam TripathiRBC3.24 106/ulCritically low4.20-5.40The [facility] HospitalComment on above:Performed By: #### CBC ####[facility] Pnulvoeyyo165[address] [place], [place] [address]Dr.Selenaneil TripathiWBC6.0 103/ul Normal4.0-11.0The [facility] HospitalComment on above:Performed By: #### CBC ####[facility] [address]wejmwrhsy[address] [place] [address]Dr. Airam DeuceCULTURE URINEon 87-61-3251UIKGTXH URINECulture Observations: LIGHT GROWTH OF MIXED GENITAL GREGORY. NO POTENTIAL PATHOGENS SEEN.NormalThe [facility] HospitalComment on above:Performed By: #### URCX ####[facility] Abjufhtuqr[address] [place] [address]Dr. Airam TripathiPOINT OF CARE GLUCOSEon 93-19-2074Oggvdgu [Mass/Vol]118 mg/dLCritically vipq42-494Ych [facility] HospitalComment on above:Performed By: #### POCGLUC ####[facility] Tmzuynucpw[address] [place] [address]Dr. Airam TripathiPROF 14(COMP METB)on 95-89-7909Voflsxf [Mass/Vol]3.1 g/dLCritically low3.4-5.0The [facility] HospitalComment on above:Performed By: #### HSTROPN, BNP, CMP ####[facility] Z[address]qmlvrqk[address] [place] [address]Dr. Airam Tripathi Albumin/Globulin [Mass ratio]1.0 {ratio}NormalThe [facility] HospitalComment on above:Performed By: #### HSTROPN, BNP, CMP ####[facility] Asawbchmkx[address] [place] [address]Dr. Airam TripathiALP [Catalytic activity/Vol] 131 U/LCritically kogk76-563Qtx [facility] HospitalComment on above:Performed By: #### HSTROPN, BNP, CMP ####[facility] Ivwcdiibup[address] [place] [address]Dr. Airam TripathiALT [Catalytic activity/Vol]26 U/LNormal 14-59The [facility] HospitalComment on above:Performed By: #### HSTROPN, BNP, CMP ####[facility] [address]vj[address] [place] [address]Dr. Airam TripathiAnion gap [Moles/Vol]11.2 mmol/LNormalThe [facility] HospitalComment on above:Performed By: #### HSTROPN, BNP, CMP ####[facility] Wuwyasqstp[address] [place] [address]Dr. Airam ChangAST [Catalytic activity/Vol] 31 U/XTosfhs76-89Fhp [facility] HospitalComment on above:Performed By: #### HSTROPN, BNP, CMP ####[facility] [address]btqwfkaly[address] [place] [address]Dr. Airam ChangBilirubin [Mass/Vol]0.2 mg/dLNormal0.2-1.0The [facility] HospitalComment on above:Performed By: #### HSTROPN, BNP, CMP ####[facility] Hxgcgruexy[address] [place] [address]Dr. Selenaneil Tripathi Calcium [Mass/Vol]8.6 mg/dLNormal8.5-10.1The [facility] HospitalComment on above: Performed By: #### HSTROPN, BNP, CMP ####[facility] Dkslbvfnnf[address] [place] [address]Dr. Selenaneil ChangChloride [Moles/Vol]102 mmol/L Tpvtcw76-180Fkk [facility] HospitalComment on above:Performed By: #### HSTROPN, BNP, CMP ####[facility] Jwdbgackrm[address] [place] [address]Dr. Airam ChangCO2 [Moles/Vol]27.4 mmol/WSdauvs68.0-32.0The [facility] HospitalComment on above:Performed By: #### HSTROPN, BNP, CMP ####[facility] [facility] [address] [place] [address]Dr. Airam Tripathi Creatinine [Mass/Vol]1.23 mg/dLCritically high0.55-1.02The [facility] Comment on above:Performed By: #### HSTROPN, BNP, CMP ####[facility] Xnxrzuzunc[address] StreetBellevue,[place] [address]He. Yilan ChangEGFR-AF XDJEVOBF87 mL/min/1.85g2Nrbqlgtmmg low>=60The [facility] HospitalComment on above: Performed By: #### HSTROPN, BNP, CMP ####[facility] Kroamzzxjk[address] [place] [address]Dr. Yilan ChangEGFR-NON AF QTMRWTWF22 mL/min/1.78j0Syfdofygog low>=60The [facility] HospitalComment on above:Performed By: #### HSTROPN, BNP, CMP ####[facility] Xpwzfvaviy[address] [place], [place] [address]Dr. Yilan ChangGlobulin (S) [Mass/Vol]3.1 g/dLNormalThOhioHealth Doctors HospitalComment on above:Performed By: #### HSTROPN, BNP, CMP ####[facility] Xsingjznzn[address] [place], [place] [address]Dr. Yilan ChangGlucose [Mass/Vol]90 mg/gWOmnlte39-246Jwp [facility] HospitalCommclaren flint on above:Performed By: #### HSTROPN, BNP, CMP ####[facility] Jwdnxugnir[address] [place], [place] [address]Dr. Yilan ChangPotassium [Moles/Vol]5.6 mmol/LCritically high3.5-5.1The [facility] HospitalCommclaren flint on above:Performed By: #### HSTROPN, BNP, CMP ####[facility] Ajxlmrqshj065[address] [place], [place] [address]Dr. Yilan ChangProtein [Mass/Vol]6.2 g/dLCritically low 6.4-8.2The [facility] HospitalComment on above:Performed By: #### HSTROPN, BNP, CMP ####[facility] Kuiclkxasi65[address] [place], [place] [address]Dr. Yilan ChangSodium [Moles/Vol]135 mmol/LCritically vdh292-991Jcl [facility]ittman Medical Centerment on above:Performed By: #### HSTROPN, BNP, CMP ####[facility] Gsvrfrvmfg[address] [place], [place] [address]Dr. Yilan ChangUrea nitrogen [Mass/Vol]38.0 mg/dLCritically high7.0-18.0The [facility] HospitalComment on above:Performed By: #### HSTROPN, BNP, CMP ####[facility] Gmjnwpqxil[address] [place] [address]Dr. Yilan ChangUrea nitrogen/Creatinine [Mass ratio]30.9 mg/mgNormalThe [facility] HospitalComment on above:Performed By: #### HSTROPN, BNP, CMP ####[facility] Zcleegpovl[address] [place] [address]Dr. Selenalan ChangTROPONIN, HIGH SENSITIVITYon 76-98-8970OJCZHX9.0 pg/mLNormal4.0-51.3The [facility] HospitalCommclaren flint on above: Result Comment: CUT-OFF POINTS HAVE BEEN ESTABLISHED BASED ON THE FOURTH UNIVERSAL DEFINITIONS OF MYOCARDIALINFARCTION. THE UPPER REFERENCE LIMIT (URL) OF TROPONIN, DEFINED THE 99TH PERCENTILE OFcTnI DISTRIBUTION IN A REFERENCE POPULATION, HAS BEEN CONFIRMED THE DECISION THRESHOLDFOR NH DIAGNOSIS. Performed By: #### HSTROPN, BNP, CMP ####[facility] Tsdmgzycul[address] [place] [address]Dr. Yilan ChangUA RANDOM W/MICROSCOPICon [id number] SEENNormalNONE SEENThe [facility] HospitalCommclaren flint on above: Performed By: #### UAMIC ####[facility] Cfkgnvdkiz[address] [place] [address]Dr. Yilan ChangBilirubin Ql (U)NegativeNormalNEGATIVE The [facility] HospitalCommclaren flint on above:Performed By: #### UAMIC ####[facility] Jusemszvlk[address] [place] [address]Dr. Yilan ChangCAST NONE SEENNormalNONE SEENMemorial Health SystemCommclaren flint on above:Performed By: #### UAMIC ####[facility] Ljhwashcvn35[address] [place] [address]Dr. Yilan ChangClarity (U)CLEARNormalCLEARThe [facility] HospitalComment on above:Performed By: #### UAMIC ####[facility] Arkioynucm[address] [place], [place] [address]Dr. Yilan ChangColor (U)LT. YELLOWNormalYELLOWMemorial Health SystemComment on above:Performed By: #### UAMIC ####[facility] Kvexqkwjsi318[address] [place], [place] [address]Dr. Yilan ChangCrystals LM Nom (Urine sed)NONE SEENNormalNONE SEENMemorial Health SystemComment on above: Performed By: #### UAMIC ####[facility] Qfunbazuwy70230[address] [place], [place] [address]Dr. Yilan ChangEpithelial cells LM Ql (Urine sed)RARE NormalNONE SEEN /RAREMemorial Health SystemComment on above:Performed By: #### UAMIC ####[facility] Bzvbadzizs66[address] [place], [place] [address]Dr. Yilan ChangGlucose Ql (U)NegativeNormalNEGCincinnati VA Medical Center Comment on above:Performed By: #### UAMIC ####[facility] Jibmbwrhoo9[address] [place], [place] [address]Dr. Yilan ChangHemoglobin Ql (U)Negative NormalNEGATIVEMemorial Health SystemComment on above:Performed By: #### UAMIC ####[facility] Wqadbrdqek9[address] [place], [place] [address]Dr. Yilan ChangKetones Ql (U)NegativeNormalNEGATIVEMemorial Health SystemComment on above:Performed By: #### UAMIC ####[facility] Ittnuedshv539[address] [place], [place] [address]Dr. Yilan ChangLEUKOCYTESNegativeNormalNEGATIVEMemorial Health SystemComment on above:Performed By: #### UAMIC ####[facility] Qrswfrqazu898[address] [place], [place] [address]Dr. Yilan ChangMUCOUSNONE SEENNormalNONE SEENMemorial Health SystemComment on above:Performed By: #### UAMIC ####[facility] Kxerytpvje[address] [place], [place] [address]Dr. Yilan ChangNitrite Ql (U)NegativeNormalNEGATIVEMemorial Health System Comment on above:Performed By: #### UAMIC ####[facility] Oazqihquii57[address] [place] [address]Dr. Airam ChangpH (U)7.0 [pH]Normal5-9The [facility] HospitalComment on above:Performed By: #### UAMIC ####[facility] Waverecakf606[address] [place], [place] [address]Dr. Airam ChangRBC0-2Normal 0-2The [facility] HospitalComment on above:Performed By: #### UAMIC ####[facility] Muyjrutkbi646[address] [place], [place] [address]Dr. Selenalan ChangSPEC GRAVITY1.369Imcfig4.005-<=1.025The [facility] HospitalComment on above:Performed By: #### UAMIC ####[facility] Rjbcrjsesm230[address] [place], [place] [address]Dr. Yilan ChangUA PROTEINNegativeNormalNEGATIVE/ TRACEThe [facility] HospitalComment on above:Performed By: #### UAMIC ####[facility] Zewnacimcn4916[address] [place], [place] [address]Dr. Yilan DeuceUrobilinogen Qn (U)0.2 {Ligia'U}/dLNormal0.2 - 1.0The [facility] HospitalCommclaren flint on above: Performed By: #### UAMIC ####[facility] Siscfnypxh764[address] [place], [place] [address]Dr. Yilan ChangWBCNONE SEENNormalNONE SEENThe [facility] HospitalComment on above:Performed By: #### UAMIC ####[facility] Ycrpccilvh735[address] [place], [place] [address]Dr. Yilan ChangXR CHEST 1 Von [id number] CHEST 1 VNormalThe [facility] AUTO DIFFon [id number] #0.0 103/ulNormal0.0-0.1The [facility] HospitalCommclaren flint on above:Performed By: #### CBC ####[facility] Cujxtwtfwo410[address] [place], [place] [address]Dr.Yilan ChangBasophils/100 WBC (Bld)0.5 %Normal0.2-2.0The [facility] HospitalComment on above:Performed By: #### CBC ####[facility] Wmddniysxx545[address] [place], [place] [address]Dr.Airam ChangEO #0.3 103/ul Normal0.0-0.7The [facility] HospitalComment on above:Performed By: #### CBC ####[facility] Lgphwmmzrr489[address] [place], [place] [address]Dr. Airam ChangEosinophils/100 WBC (Bld)3.3 %Normal0.9-7.0The [facility] Comment on above:Performed By: #### CBC ####[facility] Vwgteceebs4639[address] [place], [place] [address]Dr.Airam ChangErythrocyte distribution width (RBC) [Ratio]15.0 %Edxoww60.0-15.0The [facility] HospitalComment on above: Performed By: #### CBC ####[facility] Dzzvvwjebu854[address] [place], [place] [address]Dr.Airam ChangHematocrit (Bld) [Volume fraction]32.9 % Critically low36.0-48.0The [facility] HospitalComment on above:Performed By: #### CBC ####[facility] Iidcbzawtp8569[address] [place], [place] [address]Dr. Airam ChangHemoglobin (Bld) [Mass/Vol]10.1 g/dLCritically low12.0-16.0The [facility] HospitalComment on above:Performed By: #### CBC ####[facility] Bbpcnjffag[address] [place], [place] [address]Dr.Airam ChangIG #0.04 10e3/ulCritically high0.00-0.03The [facility] HospitalComment on above:Performed By: #### CBC ####[facility] Xmcanfnqbp204[address] [place], [place] [address]Dr.Airam ChangIG %0.5 %Normal0.0-0.5The [facility] HospitalComment on above: Performed By: #### CBC ####[facility] Bysfnulwph424[address] [place], [place] [address]Dr.Airam TripathiLYMPH #1.5 103/ulNormal1.2-3.8The [facility] HospitalComment on above:Performed By: #### CBC ####[facility] Bntjssgnrm[address] [place] [address]Dr.Airam TripathiLymphocytes/100 WBC (Bld)18.1 %Critically low20.5-60.0The [facility] HospitalComment on above: Performed By: #### CBC ####[facility] Svqyokobjn[address] [place] [address]Dr.Airam TripathiMANUAL DIFF REQNONormalThe [facility] HospitalComment on above:Performed By: #### CBC ####[facility] Vxqaisbcjl025[address] [place], [place] [address]Dr.Airam TripathiMCH (RBC) [Entitic mass]28.3 unAhrvdf44.7-34.0The [facility] HospitalComment on above: Performed By: #### CBC ####[facility] Rtincowhcn366[address] [place], [place] [address]Dr.Airam TripathiMCHC (RBC) [Mass/Vol]30.7 g/dLNormal 29.9-35.2The [facility] HospitalComment on above:Performed By: #### CBC ####[facility] Husuwiyeuw565[address] [place], [place] [address]Dr. Airam TripathiMCV (RBC) [Entitic vol]92.2 cDDdiery86.0-99.0The [facility] Comment on above:Performed By: #### CBC ####[facility] Lankpqgbwp615[address] [place], [place] [address]Dr.Airam TripathiMONO #0.7 103/ulNormal0.3-0.[address] [facility] HospitalComment on above:Performed By: #### CBC ####[facility] Qfqsjkzrek292[address] [place], [place] [address]Dr.Airam Tripathi Monocytes/100 WBC (Bld)7.7 %Normal1.7-12.0The [facility] HospitalComment on above: Performed By: #### CBC ####[facility] Fqqjwdvbxt9[address] [place] [address]Dr.Airam ChangNEUT #5.9 103/ulNormal1.4-6.5The [facility] HospitalComment on above:Performed By: #### CBC ####[facility] Pxgiqpcnmr60[address] [place], [place] [address]Dr.Airam TripathiNeutrophils/100 WBC (Bld)69.9 %Dskgfi34.0-75.0The [facility] HospitalComment on above:Performed By: #### CBC ####[facility] Ddsndtgwey99[address] [place], [place] [address]Dr.Airam TripathiPlatelet mean volume (Bld) [Entitic vol]9.3 fLCritically low 9.5-13.5The [facility] HospitalComment on above:Performed By: #### CBC ####[facility] Bvrhvistae482[address] [place], [place] [address]Dr. Airam YbdbdCER882 103/qkWncqvn285-523Zcu [facility] HospitalComment on above: Performed By: #### CBC ####[facility] Opiugjfjqb0659[address] [place], [place] [address]Dr.Selenaneil ChangRBC3.57 106/ulCritically low4.20-5.40The [facility] HospitalComment on above:Performed By: #### CBC ####[facility] Wnzsrqivic7349[address] [place], [place] [address]Dr.Airam ChangWBC8.4 103/ul Normal4.0-11.0The [facility] HospitalComment on above:Performed By: #### CBC ####[facility] Tlzbgpwuvw028[address] [place], [place] [address]Dr. Selenaneil ChangPROF 14(COMP METB)on 88-62-6307Oyqnizy [Mass/Vol]3.1 g/dLCritically low3.4-5.0The [facility] HospitalComment on above:Performed By: #### CMP ####[facility] Vywknrxwxy501[address] [place], [place] [address]Dr. Airam TripathiAlbumin/Globulin [Mass ratio]0.9 {ratio}NormalThe [facility] Comment on above:Performed By: #### CMP ####[facility] Lrlsbhkbjh71[address] [place] [address]Dr.Yilan ChangALP [Catalytic activity/Vol] 117 U/LCritically wxoh96-924Lnd [facility] HospitalComment on above:Performed By: #### CMP ####[facility] Ghqlcxvcgv5472 [place] [address]Dr.Yilan ChangALT [Catalytic activity/Vol]24 U/SDhswuj53-58Agy [facility] HospitalComment on above:Performed By: #### CMP ####[facility] Fzownthhws710[address] [place], [place] [address]Dr.Yilan ChangAnion gap [Moles/Vol]11.1 mmol/LNormalThe [facility] HospitalComment on above:Performed By: #### CMP ####[facility] Vhepylcbly940[address] [place], [place] [address]Dr.Yilan ChangAST [Catalytic activity/Vol]22 U/JKvfpxv81-18Tfb [facility] HospitalComment on above:Performed By: #### CMP ####[facility] Ubdlqwzdzg68380[address] [place], [place] [address]Dr.Yilan ChangBilirubin [Mass/Vol]0.2 mg/dLNormal0.2-1.0The [facility] HospitalComment on above:Performed By: #### CMP ####[facility] Xwfeuudnoo990[address] [place], [place] [address]Dr.Yilan ChangCalcium [Mass/Vol]8.4 mg/dLCritically low8.5-10.1The [facility] HospitalComment on above:Performed By: #### CMP ####[facility] Qpsdoqsbos720[address] [place], [place] [address]Dr.Yilan ChangChloride [Moles/Vol]103 mmol/OIafwke51-912Gmn [facility] HospitalComment on above:Performed By: #### CMP ####[facility] Hzhwcdyahe801[address] [place], [place] [address]Dr.Yilan ChangCO2 [Moles/Vol]25.0 mmol/EBuxsmq17.0-32.0The [facility] HospitalComment on above:Performed By: #### CMP ####[facility] Gvivlcdlls[address] [place] [address]Dr.Yilan ChangCreatinine [Mass/Vol]1.27 mg/dLCritically high0.55-1.02The [facility] HospitalComment on above:Performed By: #### CMP ####[facility] Xosvmujgzj2823 [place] [address]Dr.Yilan ChangEGFR-AF XOLRPNTQ59 mL/min/1.73m2 Critically low>=60The [facility] HospitalComment on above:Performed By: #### CMP ####[facility] Pvpculzgwr9905 [place] [address]Dr. Yilan ChangEGFR-NON AF CNYKMMEQ55 mL/min/1.66i4Muwujtmhyy low>=60The [facility] HospitalComment on above:Performed By: #### CMP ####[facility] Prlpdzzgcw224[address] [place], [place] [address]Dr.Yilan ChangGlobulin (S) [Mass/Vol]3.3 g/dLNormalThe [facility] HospitalComment on above:Performed By: #### CMP ####[facility] Fmbmvxbdno[address] [place], [place] [address]Dr.Yilan ChangGlucose [Mass/Vol]90 mg/kHQffwuw08-826Ajb [facility] Comment on above:Performed By: #### CMP ####[facility] Oscjzypduf237[address] [place], [place] [address]Dr.Yilan ChangPotassium [Moles/Vol]5.1 mmol/LNormal3.5-5.1The [facility] HospitalComment on above:Performed By: #### CMP ####[facility] Ncvhldfzlt43[address] [place], [place] [address]Dr. Yilan ChangProtein [Mass/Vol]6.4 g/dLNormal6.4-8.2The [facility] HospitalComment on above:Performed By: #### CMP ####[facility] Yggteaipbn[address] [place], [place] [address]Dr.Yilan ChangSodium [Moles/Vol]134 mmol/LCritically hqs951-617Moy [facility] HospitalComment on above:Performed By: #### CMP ####[facility] Aesmkfgtgd513[address] [place], [place] [address]Dr. Airam ChangUrea nitrogen [Mass/Vol]33.0 mg/dLCritically high7.0-18.0The [facility] HospitalComment on above:Performed By: #### CMP ####[facility] Kvuqbpvlxb38[address] [place], [place] [address]Dr.Airam ChangUrea nitrogen/Creatinine [Mass ratio]26.0 mg/mgNormalThe [facility] HospitalComment on above:Performed By: #### CMP ####[facility] Tqwsxgdblr839[address] [place], [place] [address]Dr.Selenaneil ChangOSMOLALITYon 77-99-5415Gilfktfbso [Osmolality]272 mosm/kgCritically zll937-336Lkh [facility] HospitalComment on above:Performed By: #### OSMO ####[facility] Qmtnpmxwer506[address] [place], [place] [address]Dr. Airam ChangBNPon 51-50-8037Rnpsmqpihtl peptide B (Bld) [Mass/Vol]1337.0 pg/mLCritically high<=900.0The [facility] on above:Performed By: #### BNP ####[facility] Pctnldgbiq750[address] [place], [place] [address]Dr.Airam TripathiCBC AUTO DIFFon 85-57-2527XKEU #0.0 103/ulNormal0.0-0.1The [facility] on above:Performed By: #### CBC ####[facility] Abfrhellue72[address] [place], [place] [address]Dr. Selenaneil DeuceBasophils/100 WBC (Bld)0.6 %Normal0.2-2.0The [facility] on above:Performed By: #### CBC ####[facility] Jpmytpljoy15[address] [place], [place] [address]Dr.Airam ChangEO #0.2 103/ulNormal0.0-0.7The [facility] HospitalComment on above:Performed By: #### CBC ####[facility] Urymcigucp[address] [place], [place] [address]Dr.Yilan ChangEosinophils/100 WBC (Bld)2.3 %Normal0.9-7.0The [facility] HospitalComment on above:Performed By: #### CBC ####[facility] Vcaviitxzs077[address] [place], [place] [address]Dr.Yilan ChangErythrocyte distribution width (RBC) [Ratio]15.1 %Critically high11.0-15.0The [facility] HospitalComment on above:Performed By: #### CBC ####[facility] Hfxsdkilom5825[address] [place], [place] [address]Dr. Yilan ChangHematocrit (Bld) [Volume fraction]35.9 %Critically low36.0-48.0The [facility] HospitalComment on above:Performed By: #### CBC ####[facility] Zpuscwsyci385[address] [place], [place] [address]Dr.Airam ChangHemoglobin (Bld) [Mass/Vol]11.4 g/dLCritically low12.0-16.0The [facility] HospitalComment on above:Performed By: #### CBC ####[facility] Sjobzwlptk021[address] [place], [place] [address]Dr.Yilan ChangIG #0.03 10e3/ulNormal0.00-0.03The [facility] HospitalComment on above:Performed By: #### CBC ####[facility] Vqmwaleaol376[address] [place], [place] [address]Dr.Yilan ChangIG %0.5 %Normal 0.0-0.5The [facility] HospitalComment on above:Performed By: #### CBC ####[facility] Okcxnooyqf09110[address] [place], [place] [address]Dr.Yilan ChangLYMPH #1.1 103/ulCritically low1.2-3.8The [facility] HospitalComment on above:Performed By: #### CBC ####[facility] Ubnmkombmk255[address] [place], [place] [address]Dr.Yilan ChangLymphocytes/100 WBC (Bld)17.2 %Critically low20.5-60.0 [facility] SystemComment on above:Performed By: #### CBC ####[facility] Pcygucoprh3[address] [place] [address]DrKiannaSelenaneil TripathiMANUAL DIFF REQNONormalThe [facility] HospitalComment on above:Performed By: #### CBC ####[facility] Xqbydtxfwf60[address] [place], [place] [address]Dr. Selenaneil TripathiH (RBC) [Entitic mass]28.8 dcOskndo00.7-34.0The [facility] Comment on above:Performed By: #### CBC ####[facility] Dmhnihikxq240[address] [place], [place] [address]DrKiannaSelenaneil TripathiHC (RBC) [Mass/Vol]31.8 g/dL Ybbfju40.9-35.2The [facility] HospitalComment on above:Performed By: #### CBC ####[facility] Zykprfyguk[address] [place], [place] [address]Dr. Airam TripathiV (RBC) [Entitic vol]90.7 iJBuviue10.0-99.0[facility] Comment on above:Performed By: #### CBC ####[facility] Pgxnhnqasw[address] [place], [place] [address]DrBroderick CandelarioO #0.5 103/ulNormal0.3-0.8 [facility] SystemComment on above:Performed By: #### CBC ####[facility] Zwhfqutwqy[address] [place], [place] [address]DrKiannaSelenaneil Tripathi Monocytes/100 WBC (Bld)7.7 %Normal1.7-12.0The [facility] HospitalComment on above: Performed By: #### CBC ####[facility] Edpqbiyras[address] [place], [place] [address]DrBroderick TripathiNEUT #4.7 103/ulNormal1.4-6.5The [facility] HospitalComment on above:Performed By: #### CBC ####[facility] Ugimdjdsbu184[address] [place], [place] [address]Dr.Yilan ChangNeutrophils/100 WBC (Bld)71.7 %Ywtvch36.0-75.0The [facility] HospitalComment on above:Performed By: #### CBC ####[facility] Zsoirgpgsm733[address] [place], [place] [address]Dr.Airam TripathiPlatelet mean volume (Bld) [Entitic vol]8.2 fLCritically low 9.5-13.5The [facility] HospitalComment on above:Performed By: #### CBC ####[facility] Hsozzwncvc27[address] [place], [place] [address]Dr. Airam MbgixQUJ889 103/lvDeewkb271-762Ers [facility] HospitalComment on above: Performed By: #### CBC ####[facility] Msvxhfqsgx676[address] [place], [place] [address]Dr.Airam ChangRBC3.96 106/ulCritically low4.20-5.40The [facility] HospitalComment on above:Performed By: #### CBC ####[facility] Bktmicckaj577[address] [place], [place] [address]Dr.Airam TripathiWBC6.6 103/ul Normal4.0-11.0The [facility] HospitalComment on above:Performed By: #### CBC ####[facility] Ecgigdxgxj9[address] [place], [place] [address]Dr. Airam ChangPROF 14(COMP METB)on 86-43-0425Yppvwpn [Mass/Vol]3.3 g/dLCritically low3.4-5.0The [facility] HospitalComment on above:Performed By: #### CMP ####[facility] Pvnsodhylo228[address] [place], [place] [address]Dr. Airam TripathiAlbumin/Globulin [Mass ratio]0.9 {ratio}NormalThe [facility] Comment on above:Performed By: #### CMP ####[facility] Rwmbiciyin194[address] [place], [place] [address]Dr.Airam TripathiALP [Catalytic activity/Vol] 130 U/LCritically peyn66-642Lxu [facility] HospitalComment on above:Performed By: #### CMP ####[facility] Nrjwktxulo[address] [place] [address]Dr.Yilan ChangALT [Catalytic activity/Vol]23 U/XWrfcla49-87Igr [facility] HospitalComment on above:Performed By: #### CMP ####[facility] Rpseajfduy[address] [place], [place] [address]Dr.Yilan ChangAnion gap [Moles/Vol]11.7 mmol/LNormalThe [facility] HospitalComment on above:Performed By: #### CMP ####[facility] Peubxibmgs[address] [place], [place] [address]Dr.Yilan ChangAST [Catalytic activity/Vol]23 U/XFeztwf69-03Zgx [facility] HospitalComment on above:Performed By: #### CMP ####[facility] Htydtrbdar[address] [place], [place] [address]Dr.Yilan ChangBilirubin [Mass/Vol]0.3 mg/dLNormal0.2-1.0The [facility] HospitalComment on above:Performed By: #### CMP ####[facility] Fqfxjbrqom[address] [place], [place] [address]Dr.Yilan ChangCalcium [Mass/Vol]8.7 mg/dLNormal8.5-10.1The [facility] HospitalComment on above:Performed By: #### CMP ####[facility] [facility] Gyivmkygmd[address] [place], [place] [address]Dr.Yilan ChangChloride [Moles/Vol]99 mmol/NOzwxiq56-367Eyd [facility] HospitalComment on above:Performed By: #### CMP ####[facility] Iilyuiuujc[address] [place], [place] [address]Dr.Yilan ChangCO2 [Moles/Vol]28.5 mmol/OJdfcsr08.0-32.0The [facility] HospitalComment on above:Performed By: #### CMP ####[facility] Iqbwfmqwzx[address] [place], [place] [address]Dr.Yilan ChangCreatinine [Mass/Vol]1.06 mg/dLCritically high0.55-1.02The [facility] HospitalComment on above:Performed By: #### CMP ####[facility] [address]vdccob[address] [place] [id number].Yilan ChangEGFR-AF CUBAN>60Normal>=60The [facility] HospitalCommclaren flint on above:Performed By: #### CMP ####[facility] Owaglcrcai[address] [place], [place] [address]Dr.Yilan ChangEGFR-NON AF VMJSPNXH62 mL/min/1.84j2Sygjmwqlcj low>=60The [facility] HospitalComment on above: Performed By: #### CMP ####[facility] Hdonzempxy5[address] [place], [place] [address]Dr.Yilan ChangGlobulin (S) [Mass/Vol]3.5 g/dLNormalThe [facility] HospitalCommclaren flint on above:Performed By: #### CMP ####[facility] Tphjcogqzm[address] [place], [place] [address]Dr.Yilan ChangGlucose [Mass/Vol]79 mg/uXRwdyld39-181Lwj [facility] on above:Performed By: #### CMP ####[facility] Dzyfmlhjso[address] [place], [place] [address]Dr.Yilan ChangPotassium [Moles/Vol]4.2 mmol/LNormal3.5-5.1The [facility] HospitalCommclaren flint on above:Performed By: #### CMP ####[facility] Kiwfrtfpxx[address] [place], [place] [address]Dr.Yilan ChangProtein [Mass/Vol]6.8 g/dLNormal6.4-8.2The [facility] HospitalCommclaren flint on above:Performed By: #### CMP ####[facility] Irieqqulkr7[address] [place], [place] [address]Dr.Yilan ChangSodium [Moles/Vol]135 mmol/LCritically snm613-999Hex [facility] on above:Performed By: #### CMP ####[facility] Grpkaslbzs8[address] [place], [place] [address]Dr.Yilan ChangUrea nitrogen [Mass/Vol]16.0 mg/dLNormal7.0-18.0The [facility] Centerment on above: Performed By: #### CMP ####[facility] Dgkwzfjtud6[address] [place], [place] [address]Dr.Airam TripathiUrea nitrogen/Creatinine [Mass ratio] 15.1 mg/mgNoCleveland Clinic Fairview HospitalComment on above:Performed By: #### CMP ####[facility] Vxguxwahqu554[address] [place], [place] [address]Dr. Airam ChangXR CHEST 1 Von 99-72-5761EZ CHEST [address] [facility] HospitalPRBC LEUKOREDUCEDon 25-27-9056ZGPN LEUKOREDUCEDMarion HospitalComment on above:Performed By: #### PRBC ####[facility] Wztfsyomsu9[address] [place], [place] [address]Dr. Airam TripathiCULTURE URINEon 04-88-3713OYRUPDN URINE NormalThe [facility] HospitalComment on above:Performed By: #### URCX ####[facility] Mmnvycusxv[address] [place], [place] [address]Dr. Airam Tripathi OSMOLALITYon 59-86-6020Zjjxjsaufr [Osmolality]282 mosm/ndXxiiav387-638Kyq [facility] HospitalComment on above:Performed By: #### OSMO ####[facility] Kbfwwkxjua[address] [place], [place] [address]Dr. Airam TripathiCBC AUTO DIFF on 34-90-5429AXQX #0.0 103/ulNormal0.0-0.1[facility] SystemCommclaren flint on above: Performed By: #### CBC ####[facility] Rgzfspgrhc165[address] [place], [place] [address]Dr.Airam TripathiBasophils/100 WBC (Bld)0.3 %Normal 0.2-2.0[facility] SystemComment on above:Performed By: #### CBC ####[facility] Pfcprifthv6[address] [place], [place] [address]Dr.Airam ChangEO # 0.2 103/ulNormal0.0-0.7The [facility] HospitalCommclaren flint on above:Performed By: #### CBC ####[facility] Lwukbzjaag3715[address] [place], [place] [address]Dr. Airam ChangEosinophils/100 WBC (Bld)3.4 %Normal0.9-7.0The [facility] Comment on above:Performed By: #### CBC ####[facility] [address]uvmy[address] [place] [address]Dr.Airam ChangErythrocyte distribution width (RBC) [Ratio]15.2 %Critically high11.0-15.0The [facility] HospitalComment on above:Performed By: #### CBC ####[facility] Gnarhkkjpr[address] [place] [address]Dr.Selenalan ChangHematocrit (Bld) [Volume fraction]31.3 % Critically low36.0-48.0The [facility] HospitalComment on above:Performed By: #### CBC ####[facility] Cwdnuilqpq[address] [place] [address]Dr. Airam ChangHemoglobin (Bld) [Mass/Vol]9.9 g/dLCritically low12.0-16.0The [facility] HospitalComment on above:Performed By: #### CBC ####[facility] Ktmdpweddr[address] [place], [place] [address]Dr.Yilan ChangIG #0.03 10e3/ulNormal0.00-0.03The [facility] HospitalComment on above:Performed By: #### CBC ####[facility] Ocbqxmmqcu[address] [place] [address]Dr. Airam ChangIG %0.4 %Normal0.0-0.5The [facility] HospitalComment on above:Performed By: #### CBC ####[facility] Zpsmflljrv475[address] [place], [place] [address]Dr.Yilan ChangLYMPH #1.3 103/ulNormal1.2-3.8The [facility] Comment on above:Performed By: #### CBC ####[facility] Prtmvgzzld[address] [place], [place] [address]Dr.Yilan ChangLymphocytes/100 WBC (Bld)19.0 %Critically low20.5-60.0The [facility] HospitalComment on above:Performed By: #### CBC ####[facility] Vbsbmzfixf[address] [place] [address]Dr.Airam TripathiMANUAL DIFF REQNONormalThe [facility] HospitalComment on above: Performed By: #### CBC ####[facility] Vyltgrfqzq195[address] [place], [place] [address]Dr.Airam TripathiH (RBC) [Entitic mass]28.1 pgNormal 26.7-34.0The [facility] HospitalComment on above:Performed By: #### CBC ####[facility] Omzgvontuj342[address] [place], [place] [address]Dr. Airam TripathiHC (RBC) [Mass/Vol]31.6 g/nVRtsuou70.9-35.2The [facility] Comment on above:Performed By: #### CBC ####[facility] Skqgjpovqj518[address] [place], [place] [address]Dr.Airam TripathiV (RBC) [Entitic vol]88.9 fL Zyveqi61.0-99.0The [facility] HospitalComment on above:Performed By: #### CBC ####[facility] Elfquqxhla028[address] [place], [place] [address]Dr. Airam DeuceMONO #0.6 103/ulNormal0.3-0.8The [facility] HospitalComment on above: Performed By: #### CBC ####[facility] Hkxpryhjuq306[address] [place], [place] [address]Dr.Airam ChangMonocytes/100 WBC (Bld)9.0 %Normal 1.7-12.0The [facility] HospitalComment on above:Performed By: #### CBC ####[facility] Hkejcxeyio530[address] [place], [place] [address]Dr. Airam DeuceNEUT #4.5 103/ulNormal1.4-6.5The [facility] HospitalComment on above: Performed By: #### CBC ####[facility] Fkqrldosuo140[address] [place], [place] [address]Dr.Selenaneil TripathiNeutrophils/100 WBC (Bld)67.9 %Normal 43.0-75.0The [facility] HospitalComment on above:Performed By: #### CBC ####[facility] Ylilkycoze016[address] [place], [place] [address]Dr. Selenaneil DeucePlatelet mean volume (Bld) [Entitic vol]9.1 fLCritically low9.5-13.[address] [facility] HospitalComment on above:Performed By: #### CBC ####[facility] Ocqbddksjg1624[address] [place], [place] [address]Dr.Airam TripathiPLT256 103/srCnceic949-676Bol [facility] HospitalComment on above:Performed By: #### CBC ####[facility] Coqjvbpozh4039[address] [place], [place] [address]Dr. Airam TripathiRBC3.52 106/ulCritically low4.20-5.40The [facility] HospitalComment on above:Performed By: #### CBC ####[facility] Eahfyxihkp164[address] [place], [place] [address]Dr.Airam TripathiWBC6.7 103/ulNormal4.0-11.0The [facility] HospitalComment on above:Performed By: #### CBC ####[facility] Mxfchefijt45380[address] [place], [place] [address]Dr.Airam TripathiPROF 14(COMP METB)on 46-77-9048Hfcrelr [Mass/Vol]2.8 g/dLCritically low3.4-5.0The [facility] HospitalComment on above:Performed By: #### CMP ####[facility] Xreioohcxg058[address] [place], [place] [address]Dr.Airam Tripathi Albumin/Globulin [Mass ratio]0.9 {ratio}NormalThe [facility] HospitalComment on above:Performed By: #### CMP ####[facility] Cwnvfoacoa05[address] [place], [place] [address]Dr.Airam TripathiALP [Catalytic activity/Vol]118 U/L Critically lvax30-707Jgr [facility] HospitalComment on above:Performed By: #### CMP ####[facility] Xhgrpifxth625[address] [place], [place] [address]Dr. Yilan ChangALT [Catalytic activity/Vol]23 U/VTaocen13-50Yev [facility] Comment on above:Performed By: #### CMP ####[facility] Xfrfcocemj648[address] [place], [place] [address]Dr.Yineil ChangAnion gap [Moles/Vol]12.5 mmol/LNormalThe [facility] HospitalComment on above:Performed By: #### CMP ####[facility] Vdafxtwdku49[address] [place], [place] [address]Dr. Yilan ChangAST [Catalytic activity/Vol]21 U/COuodsi61-65Upt [facility] Comment on above:Performed By: #### CMP ####[facility] Mwxpeqynfk900[address] [place], [place] [address]Dr.Yilan ChangBilirubin [Mass/Vol]0.4 mg/dL Normal0.2-1.0The [facility] HospitalComment on above:Performed By: #### CMP ####[facility] Aokaqpqeam687[address] [place], [place] [address]Dr. Yilan ChangCalcium [Mass/Vol]8.2 mg/dLCritically low8.5-10.1The [facility] HospitalComment on above:Performed By: #### CMP ####[facility] Ldjtokfjnb939[address] [place], [place] [address]Dr.Yilan ChangChloride [Moles/Vol]99 mmol/XTxfutv67-383Jsc [facility] HospitalComment on above:Performed By: #### CMP ####[facility] Hupgnyqeml036[address] [place], [place] [address]Dr.Yilan ChangCO2 [Moles/Vol]24.9 mmol/JMedklr05.0-32.0The [facility] HospitalComment on above:Performed By: #### CMP ####[facility] Dnsphrvmvj565[address] [place], [place] [address]Dr.Yilan ChangCreatinine [Mass/Vol]1.61 mg/dLCritically high0.55-1.02The [facility] HospitalComment on above:Performed By: #### CMP ####[facility] Mnxugwgkxk724[address] [place], [place] [address]Dr.Yilan ChangEGFR-AF ADWCYTLI13 mL/min/1.73m2 Critically low>=60The [facility] HospitalComment on above:Performed By: #### CMP ####[facility] Wacubwfogk[address] [place], [place] [address]Dr. Airam ChangEGFR-NON AF QNEIQVMQ35 mL/min/1.70f8Zrxkklysva low>=60The [facility] HospitalComment on above:Performed By: #### CMP ####[facility] Zvyzplhexr938[address] [place], [place] [address]Dr.Selenaneil DeuceGlobulin (S) [Mass/Vol]3.2 g/dLNormalThe [facility] HospitalComment on above:Performed By: #### CMP ####[facility] Cdawuqiqdx4725[address] [place], [place] [address]Dr.Airam TripathiGlucose [Mass/Vol]67 mg/dLCritically uii90-864Ywz [facility] HospitalComment on above:Performed By: #### CMP ####[facility] Umyprwpnsu4389[address] [place], [place] [address]Dr.Airam TripathiPotassium [Moles/Vol]5.4 mmol/LCritically high3.5-5.1The [facility] HospitalComment on above:Performed By: #### CMP ####[facility] Edzpnchzob7569[address] [place], [place] [address]Dr.Airam TripathiProtein [Mass/Vol]6.0 g/dLCritically low 6.4-8.2The [facility] HospitalComment on above:Performed By: #### CMP ####[facility] Lcamscwtpl226[address] [place], [place] [address]Dr.Airam Tripathi Sodium [Moles/Vol]131 mmol/LCritically vxz947-957Tpz [facility] HospitalComment on above:Performed By: #### CMP ####[facility] Epxzterpqv19[address] [place], [place] [address]Dr.Airam TripathiUrea nitrogen [Mass/Vol]43.0 mg/dL Critically high7.0-18.0The [facility] HospitalComment on above:Performed By: #### CMP ####[facility] Gydadaarch269[address] [place], [place] [address]Dr. Yilan ChangUrea nitrogen/Creatinine [Mass ratio]26.7 mg/mgNormalThe [facility] HospitalComment on above:Performed By: #### CMP ####[facility] Xnmiwgmutb865[address] [place], [place] [address]Dr.Yilan ChangCBC AUTO DIFFon 81-55-1947AJCJ #0.0 103/ulNormal0.0-0.1The [facility] HospitalComment on above: Performed By: #### CBC ####[facility] Yabzraekdh[address] [place], [place] [address]Dr.Yilan ChangBasophils/100 WBC (Bld)0.3 %Normal 0.2-2.0The [facility] HospitalComment on above:Performed By: #### CBC ####[facility] Bbahsdkpzk487[address] [place], [place] [address]Dr.Yilan ChangEO # 0.2 103/ulNormal0.0-0.7The [facility] HospitalComment on above:Performed By: #### CBC ####[facility] Eqbtrmgtjb430[address] [place], [place] [address]Dr. Yilan ChangEosinophils/100 WBC (Bld)3.1 %Normal0.9-7.0The [facility] Comment on above:Performed By: #### CBC ####[facility] Kbicqmolhl7325[address] [place], [place] [address]Dr.Yilan ChangErythrocyte distribution width (RBC) [Ratio]15.0 %Rokvwy10.0-15.0The [facility] HospitalComment on above: Performed By: #### CBC ####[facility] Vouqqgvabc718[address] [place], [place] [address]Dr.Selenalan ChangHematocrit (Bld) [Volume fraction]30.9 % Critically low36.0-48.0The [facility] HospitalComment on above:Performed By: #### CBC ####[facility] Axrxpfwowh1601[address] [place], [place] [address]Dr. Selenalan ChangHemoglobin (Bld) [Mass/Vol]10.1 g/dLCritically low12.0-16.0The [facility] HospitalComment on above:Result Comment: PATIENT RECIEVED 2 UNITS PRBC'SPerformed By: #### CBC ####[facility] Bqbmuyymwj954[address] [place], [place] [address]Dr.Airam TripathiIG #0.03 10e3/ulNormal0.00-0.03The [facility] HospitalComment on above:Performed By: #### CBC ####[facility] Mtzcocbbos2999[address] [place], [place] [address]Dr.Airam TripathiIG %0.4 %Normal 0.0-0.5The [facility]Comment on above:Performed By: #### CBC ####[facility] Gjrwyfkelt5859[address] [place], [place] [address]Dr.Airam DossH #1.1 103/ulCritically low1.2-3.8The [facility] HospitalComment on above:Performed By: #### CBC ####[facility] Yezqhaxwst025[address] [place], [place] [address]Dr.Airam Dosshocytes/100 WBC (Bld)14.4 %Critically low20.5-60.[address] [facility] HospitalComment on above:Performed By: #### CBC ####[facility] Sqxbkjlsnq315[address] [place], [place] [address]Dr.Airam TripathiMANUAL DIFF REQNONormalThe [facility] HospitalComment on above:Performed By: #### CBC ####[facility] Enevtlhfnr5729[address] [place], [place] [address]Dr. Airam Tri[facility]iK[facility] (RBC) [Entitic mass]28.9 uoXnxyad21.7-34.0The [facility] Comment on above:Performed By: #### CBC ####[facility] Kgbopyzpdc490[address] [place], [place] [address]Dr.Airam TripathiHC (RBC) [Mass/Vol]32.7 g/dL Hjwcwh08.9-35.2The [facility] HospitalComment on above:Performed By: #### CBC ####[facility] Jpwjkpojst8727[address] [place], [place] [address]Dr. Airam TripathiMCV (RBC) [Entitic vol]88.3 iFWbempn61.0-99.0The [facility] Comment on above:Performed By: #### CBC ####[facility] Ucsqrieqkm075[address] [place], [place] [address]Dr.Airam TripathiMONO #0.6 103/ulNormal0.3-0.[address] [facility] HospitalComment on above:Performed By: #### CBC ####[facility] Mvztbaxhwr365[address] [place], [place] [address]Dr.Airam Tripathi Monocytes/100 WBC (Bld)7.8 %Normal1.7-12.0The [facility] HospitalComment on above: Performed By: #### CBC ####[facility] Ktuckjiojt259[address] [place], [place] [address]Dr.Airam TripathiNEUT #5.5 103/ulNormal1.4-6.5The [facility] HospitalComment on above:Performed By: #### CBC ####[facility] Yyoqsgjcqq703[address] [place], [place] [address]Dr.Airam TripathiNeutrophils/100 WBC (Bld)74.0 %Cuoqkv71.0-75.0The [facility] HospitalComment on above:Performed By: #### CBC ####[facility] Sswpmrlshc608[address] [place], [place] [address]Dr.Airam TripathiPlatelet mean volume (Bld) [Entitic vol]9.2 fLCritically low 9.5-13.5The [facility] HospitalComment on above:Performed By: #### CBC ####[facility] Bwhbetvvsu740[address] [place], [place] [address]Dr. Airam TripathiPLT275 103/qoUxaeln656-539Tlt [facility] HospitalComment on above: Performed By: #### CBC ####[facility] Uekprfuhsf335[address] [place], [place] [address]Dr.Airam TripathiRBC3.50 106/ulCritically low4.20-5.40The [facility] HospitalComment on above:Performed By: #### CBC ####[facility] Qysopfwxqn[address] [place], [place] [address]Dr.Yilan ChangWBC7.4 103/ul Normal4.0-11.0The [facility] HospitalComment on above:Performed By: #### CBC ####[facility] Jixvkxouyf[address] [place] [address]Dr. Yilan ChangBASO #0.0 103/ulNormal0.0-0.1The [facility] HospitalComment on above: Performed By: #### CBC ####[facility] Mknktrouhl43[address] [place], [place] [address]Dr.Yilan ChangBasophils/100 WBC (Bld)0.4 %Normal 0.2-2.0The [facility] HospitalComment on above:Performed By: #### CBC ####[facility] Tbagemsmge086[address] [place], [place] [address]Dr.Yilan ChangEO # 0.2 103/ulNormal0.0-0.7The [facility] HospitalComment on above:Performed By: #### CBC ####[facility] Gsknjcglpj[address] [place], [place] [address]Dr. Yilan ChangEosinophils/100 WBC (Bld)4.5 %Normal0.9-7.0The [facility] Comment on above:Performed By: #### CBC ####[facility] Dinokhthla932[address] [place], [place] [address]Dr.Selenalan ChangErythrocyte distribution width (RBC) [Ratio]15.1 %Critically high11.0-15.0The [facility] HospitalComment on above:Performed By: #### CBC ####[facility] Lgedjdfudu974[address] [place], [place] [address]Dr.Selenalan ChangHematocrit (Bld) [Volume fraction]23.0 % Critically low36.0-48.0The [facility] HospitalComment on above:Performed By: #### CBC ####[facility] Fgsenhxays625[address] [place], [place] [address]Dr. Airam ChangHemoglobin (Bld) [Mass/Vol]7.2 g/dLCritically low12.0-16.0The [facility] HospitalComment on above:Performed By: #### CBC ####[facility] Egsouejuil[address] [place] [address]Dr.Airam TripathiIG #0.02 10e3/ulNormal0.00-0.03The [facility] HospitalComment on above:Performed By: #### CBC ####[facility] Zoxofkyuiv[address] [place] [address]Dr. Airam ChangIG %0.4 %Normal0.0-0.5The [facility] HospitalComment on above:Performed By: #### CBC ####[facility] Zrjhrojtih057[address] [place], [place] [address]Dr.Airam DeuceLYMPH #1.0 103/ulCritically low1.2-3.8The [facility] HospitalComment on above:Performed By: #### CBC ####[facility] Jpedavjvlc3312[address] [place], [place] [address]Dr.Selenaneil TripathiLymphocytes/100 WBC (Bld)22.5 %Woqqbe08.5-60.0The [facility] Centerment on above:Performed By: #### CBC ####[facility] Mnsewugknu7514[address] [place], [place] [address]Dr.Airam TripathiMANUAL DIFF REQNONormalThe [facility] HospitalComment on above:Performed By: #### CBC ####[facility] Oopmwabvdg297[address] [place], [place] [address]Dr.Airam TripathiH (RBC) [Entitic mass]28.3 pgNormal 26.7-34.0The [facility] HospitalComment on above:Performed By: #### CBC ####[facility] Hucvzfrqqy13[address] [place], [place] [address]Dr. Airam TripathiMCHC (RBC) [Mass/Vol]31.3 g/iJVbjxxb33.9-35.2The [facility] Comment on above:Performed By: #### CBC ####[facility] Ohecghcbcm4[address] [place], [place] [address]Dr.Airam TripathiMCV (RBC) [Entitic vol]90.6 fL Wkvqbs27.0-99.0The [facility] HospitalComment on above:Performed By: #### CBC ####[facility] Hcjnmsnmdz727[address] [place], [place] [address]Dr. Airam TripathiMONO #0.5 103/ulNormal0.3-0.8The [facility] HospitalComment on above: Performed By: #### CBC ####[facility] Ohiklwmulr966[address] [place], [place] [address]Dr.Selenalan ChangMonocytes/100 WBC (Bld)9.7 %Normal 1.7-12.0The [facility] HospitalComment on above:Performed By: #### CBC ####[facility] Yledegtxee199[address] [place], [place] [address]Dr. Airam TripathiNEUT #2.9 103/ulNormal1.4-6.5The [facility] HospitalComment on above: Performed By: #### CBC ####[facility] Naarzdxlsp633[address] [place], [place] [address]Dr.Selenalan ChangNeutrophils/100 WBC (Bld)62.5 %Normal 43.0-75.0The [facility] HospitalComment on above:Performed By: #### CBC ####[facility] Zatdzqgqij699[address] [place], [place] [address]Dr. Airam TripathiPlatelet mean volume (Bld) [Entitic vol]8.9 fLCritically low9.5-13.[address] [facility] HospitalComment on above:Performed By: #### CBC ####[facility] Ruascfjdgl[address] [place], [place] [address]Dr.Selenalan LukmuXKM356 103/waQwbftz925-646Wxd [facility] HospitalComment on above:Performed By: #### CBC ####[facility] Rhgmdxpqxr4[address] [place], [place] [address]Dr. Selenalan ChangRBC2.54 106/ulCritically low4.20-5.40The [facility] HospitalComment on above:Performed By: #### CBC ####[facility] Dsjnmcbfus8[address] [place], [place] [address]Dr.Selenalan ChangWBC4.6 103/ulNormal4.0-11.0[facility] SystemComment on above:Performed By: #### CBC ####[facility] [address]juhywe[address] [place] [address]Dr.Airam ChangOSMOLALITYon 24-83-3362Jxxygzqqxl [Osmolality]279 mosm/fvMrsele367-116FhaMemorial Health System Comment on above:Performed By: #### OSMO ####[facility] Zuywdrdfcl[address] [place], [place] [address]Dr. Airam ChangPOINT OF CARE GLUCOSEon 14-44-4936Kecqlvn [Mass/Vol]72 mg/dLCritically vbt30-481JbfMemorial Health System Comment on above:Performed By: #### POCGLUC ####[facility] Dwfbouivpj[address] [place], [place] [address]Dr. Airam ChangGlucose [Mass/Vol]102 mg/dL Kpjnvm83-582UmqMemorial Health SystemComment on above:Performed By: #### POCGLUC ####[facility] [facility] Nemqhgtjrm[address] [place], [place] [address]Dr. Airam ChangGlucose [Mass/Vol]165 mg/dLCritically dzns06-508EgzMemorial Health System Comment on above:Performed By: #### POCGLUC ####[facility] Urcyeoglmg129[address] [place], [place] [address]Dr. Airam ChangPROF 14(COMP METB)on [id number] [Mass/Vol]2.6 g/dLCritically low3.4-5.0[facility] Comment on above:Performed By: #### CMP ####[facility] Ixxoloqgew[address] [place], [place] [address]Dr.Airam ChangAlbumin/Globulin [Mass ratio] 0.9 {ratio}NormalMemorial Health SystemComment on above:Performed By: #### CMP ####[facility] Didivthdfb527[address] [place], [place] [address]Dr. Airam ChangALP [Catalytic activity/Vol]107 U/LDjlxsr96-661JgmMemorial Health System Comment on above:Performed By: #### CMP ####[facility] [address] [place] [address]Dr.Yilan ChangALT [Catalytic activity/Vol]22 U/CRyzola60-67Uia [facility] HospitalComment on above:Performed By: #### CMP ####[facility] Fkectvcabk[address] [place], [place] [address]Dr. Yilan ChangAnion gap [Moles/Vol]10.0 mmol/LNormalThe [facility] HospitalComment on above:Performed By: #### CMP ####[facility] Kxarpuxwia196[address] [place], [place] [address]Dr.Yilan ChangAST [Catalytic activity/Vol]19 U/LNormal 15-37The [facility] HospitalComment on above:Performed By: #### CMP ####[facility] Kuqmqhcejf473[address] [place], [place] [address]Dr.Yilan Tripathi Bilirubin [Mass/Vol]0.2 mg/dLNormal0.2-1.0The [facility] HospitalComment on above: Performed By: #### CMP ####[facility] Uveujcikcj043[address] [place], [place] [address]Dr.Yilan ChangCalcium [Mass/Vol]8.1 mg/dLCritically low8.5-10.1The [facility] HospitalComment on above:Performed By: #### CMP ####[facility] Moizhocbnd[address] [place], [place] [address]Dr. Yilan ChangChloride [Moles/Vol]100 mmol/VDaxlfz36-175Les [facility] Comment on above:Performed By: #### CMP ####[facility] Nyjtiectod[address] [place], [place] [address]Dr.Yilan ChangCO2 [Moles/Vol]26.2 mmol/L Ejjibg83.0-32.0The [facility] HospitalComment on above:Performed By: #### CMP ####[facility] Zzktmardng[address] [place], [place] [address]Dr. Yilan ChangCreatinine [Mass/Vol]1.90 mg/dLCritically high0.55-1.02The [facility] HospitalComment on above:Performed By: #### CMP ####[facility] [address] [place] [id number].Yilan ChangEGFR-AF DAXKPRKW06 mL/min/1.44h2Afqiwtbpsl low>=60The [facility] HospitalCommclaren flint on above: Performed By: #### CMP ####[facility] Aizlglrniw18[address] [place], [place] [address]Dr.Yilan ChangEGFR-NON AF GMTQSKLE11 mL/min/1.73m2 Critically low>=60The [facility] HospitalComment on above:Performed By: #### CMP ####[facility] Ogchtfhvfo424[address] [place], [place] [address]Dr. Yilan ChangGlobulin (S) [Mass/Vol]2.8 g/dLNormalThOhioHealth Doctors HospitalComment on above:Performed By: #### CMP ####[facility] Faanvuykgk706[address] [place], [place] [address]Dr.Yilan ChangGlucose [Mass/Vol]115 mg/dLCritically kwcq58-489Jil [facility] HospitalCommclaren flint on above:Performed By: #### CMP ####[facility] Udclncdkba9[address] [place], [place] [address]Dr. Yilan ChangPotassium [Moles/Vol]5.2 mmol/LCritically high3.5-5.1The [facility] HospitalCommclaren flint on above:Performed By: #### CMP ####[facility] Lodlnowhpp744[address] [place], [place] [address]Dr.Yilan ChangProtein [Mass/Vol]5.4 g/dLCritically low6.4-8.2The [facility] HospitalCommclaren flint on above: Performed By: #### CMP ####[facility] Luftyujwbl739[address] [place], [place] [address]Dr.Yilan ChangSodium [Moles/Vol]131 mmol/LCritically eam580-372Wpz [facility] HospitalCommclaren flint on above:Performed By: #### CMP ####[facility] Nwowchfgif[address] [place], [place] [address]Dr. Yilan ChangUrea nitrogen [Mass/Vol]41.0 mg/dLCritically high7.0-18.0The [facility] HospitalComment on above:Performed By: #### CMP ####[facility] Jwrunbyfrl809[address] [place], [place] [address]Dr.Airam TripathiUrea nitrogen/Creatinine [Mass ratio]21.6 mg/mgNoCleveland Clinic Fairview HospitalComment on above:Performed By: #### CMP ####[facility] Numvugbdid700[address] [place], [place] [address]Dr.Yilan ChangTYPE AND SCREENon 26-66-2494LKJQ AND SCREENNegativeNoCleveland Clinic Fairview HospitalComment on above:Performed By: #### TNS ####[facility] Mnidjfedkq078[address] [place], [place] [address]Dr. Selenaneil DeuceCBC AUTO DIFFon 28-83-3142IKSD #0.0 103/ulNormal0.0-0.1The [facility] HospitalCommclaren flint on above:Performed By: #### CBC ####[facility] Dtymdgunvv0417[address] [place], [place] [address]Dr.Selenaneil ChangBasophils/100 WBC (Bld)0.5 %Normal0.2-2.0[facility] on above:Performed By: #### CBC ####[facility] Oglhpcmkws406[address] [place], [place] [address]Dr.Selenalan ChangEO #0.2 103/ulNormal0.0-0.7The [facility] HospitalCommclaren flint on above:Performed By: #### CBC ####[facility] Akpuikwtqy324[address] [place], [place] [address]Dr.Airam ChangEosinophils/100 WBC (Bld)3.2 %Normal 0.9-7.0The [facility] HospitalComment on above:Performed By: #### CBC ####[facility] Oaegxrpdeb219[address] [place], [place] [address]Dr.Airam Tripathi Erythrocyte distribution width (RBC) [Ratio]15.2 %Critically high11.0-15.0The [facility] HospitalComment on above:Performed By: #### CBC ####[facility] Jrtfxdnuyw029[address] [place], [place] [address]Dr.Airam ChangHematocrit (Bld) [Volume fraction]24.7 %Critically low36.0-48.0The [facility] HospitalComment on above:Performed By: #### CBC ####[facility] Iotgxnzogh963[address] [place], [place] [address]Dr.Airam TripathiHemoglobin (Bld) [Mass/Vol]7.6 g/dL Critically low12.0-16.0The [facility] HospitalComment on above:Performed By: #### CBC ####[facility] Dvmajewzhe154[address] [place], [place] [address]Dr. Airam TripathiIG #0.02 10e3/ulNormal0.00-0.03The [facility] HospitalComment on above: Performed By: #### CBC ####[facility] Hfnfmhgvzh4139[address] [place], [place] [address]Dr.Airam TripathiIG %0.3 %Normal0.0-0.5The [facility] HospitalComment on above:Performed By: #### CBC ####[facility] Tcpzfzigme3199[address] [place], [place] [address]Dr.Airam TripathiLYMPH #1.1 103/ulCritically low1.2-3.8The [facility] HospitalComment on above:Performed By: #### CBC ####[facility] Kbiokoxrlt8714[address] [place], [place] [address]Dr.Airam Tripathimphocytes/100 WBC (Bld)18.4 %Critically low20.5-60.0The [facility] HospitalComment on above:Performed By: #### CBC ####[facility] Yjwiybkedg1837[address] [place], [place] [address]Dr.Airam TripathiMANUAL DIFF REQ NONormalThe [facility] HospitalComment on above:Performed By: #### CBC ####[facility] Jclubrdolk439[address] [place], [place] [address]Dr. Airam TripathiKINGS [facility] (RBC) [Entitic mass]28.5 lsRskkzs55.7-34.0The [facility] Comment on above:Performed By: #### CBC ####[facility] Dnltcfddum594[address] [place], [place] [address]Dr.Airam TripathiMCHC (RBC) [Mass/Vol]30.8 g/dL Gccvbo51.9-35.2The [facility] HospitalComment on above:Performed By: #### CBC ####[facility] [address]kpsi[address] [place] [address]Dr. Airam TripathiMCV (RBC) [Entitic vol]92.5 wIUxtwbd68.0-99.0The [facility] Comment on above:Performed By: #### CBC ####[facility] Aappbspzsw773[address] [place], [place] [address]Dr.Airam TripathiMONO #0.6 103/ulNormal0.3-0.8 The [facility] HospitalComment on above:Performed By: #### CBC ####[facility] Mcpcxdpbkf3339[address] [place], [place] [address]Dr.Airam Tripathi Monocytes/100 WBC (Bld)10.0 %Normal1.7-12.0The [facility] HospitalComment on above:Performed By: #### CBC ####[facility] Akcwburbxg847[address] [place], [place] [address]Dr.Airam TripathiNEUT #4.0 103/ulNormal1.4-6.5The [facility] HospitalComment on above:Performed By: #### CBC ####[facility] Qiszgoxqmk0009[address] [place], [place] [address]Dr.Airam TripathiNeutrophils/100 WBC (Bld)67.6 %Aqksyb50.0-75.0The [facility] HospitalComment on above:Performed By: #### CBC ####[facility] Ainmtmvdae758[address] [place], [place] [address]Dr.Airam TripathiPlatelet mean volume (Bld) [Entitic vol]8.8 fLCritically low 9.5-13.5The [facility] HospitalComment on above:Performed By: #### CBC ####[facility] Ywxldrnrwa617[address] [place], [place] [address]Dr. Airam XowipEIU703 103/hnBeygii069-513Nke [facility] HospitalComment on above: Performed By: #### CBC ####[facility] Osaetlrjpu[address] [place] [address]Dr.Airam ChangRBC2.67 106/ulCritically low4.20-5.40The [facility] HospitalComment on above:Performed By: #### CBC ####[facility] Xdgzqhdeim3[address] [place] [address]Dr.Airam TripathiWBC5.9 103/ul Normal4.0-11.0The [facility] HospitalComment on above:Performed By: #### CBC ####[facility] Uxqbicwxsh5959[address] [place], [place] [address]Dr. Airam ChangCovid-19 PCR (CVDTBH)on 09-37-5846YECI-CoV-2 (COVID-19) RNA MIKE+probe Ql (Unsp spec)Not detectedNormalNOT DETECTEDThe [facility] on above:Result Comment: When diagnostic testing [...] for this test is supported by the [place] of Health and Human Service's declaration that [...] no longer be used).Performed By: #### CVDTBH ####[facility] Owzbdtbskc[address] [place] [address]Dr. Airam TripathiMAGNESIUMon 48-60-1612Obwrfjssp [Mass/Vol]1.7 mg/dLCritically low1.8-2.4The [facility] on above: Performed By: #### MG, CMP ####[facility] Jzfxmafztv[address] [place], [place] [address]Dr. Airam TripathiPOINT OF CARE GLUCOSEon 10-05-2022 Glucose [Mass/Vol]92 mg/bFAtdofx24-333Kmo [facility] on above: Performed By: #### POCGLUC ####[facility] Imbjxysnme[address] [place] [address]Dr. Airam ChangPROF 14(COMP METB)on 03-31-8957Qpweunb [Mass/Vol]2.9 g/dLCritically low3.4-5.0The [facility] HospitalComment on above: Performed By: #### MG, CMP ####[facility] Fpmodttkhj6[address] [place] [address]Dr. Airam ChangAlbumin/Globulin [Mass ratio]0.9 {ratio}NormalThe [facility] on above:Performed By: #### MG, CMP ####[facility] Ouzilqepbj[address] [place], [place] [address]Dr. Airam ChangALP [Catalytic activity/Vol]122 U/LCritically oniv03-686Prx [facility] on above:Performed By: #### MG, CMP ####[facility] Cwcddzkxfz905[address] [place], [place] [address]Dr. Selenalan ChangALT [Catalytic activity/Vol]24 U/ABmxikq23-69Vmu [facility] on above:Performed By: #### MG, CMP ####[facility] Qjtfsduxcz4[address] [place] [address]Dr. Airam ChangAnion gap [Moles/Vol]13.1 mmol/LNormalThe [facility] HospitalCommclaren flint on above:Performed By: #### MG, CMP ####[facility] Ujjcnshatn164[address] [place], [place] [address]Dr. Selenalan ChangAST [Catalytic activity/Vol]21 U/KYxnevb50-77Qeb [facility] on above:Performed By: #### MG, CMP ####[facility] Elaoifwydk396[address] [place], [place] [address]Dr. Airam ChangBilirubin [Mass/Vol]0.2 mg/dLNormal0.2-1.0The [facility] HospitalComment on above:Performed By: #### MG, CMP ####[facility] Xvhenftsbe237[address] [place], [place] [address]Dr. Yilan ChangCalcium [Mass/Vol]8.4 mg/dLCritically low8.5-10.1The [facility] HospitalComment on above: Performed By: #### MG, CMP ####[facility] Jgmhymfyjf7712[address] [place], [place] [address]Dr. Yilan ChangChloride [Moles/Vol]102 mmol/LNormal 98-107The [facility] HospitalComment on above:Performed By: #### MG, CMP ####[facility] Izlbkkginq2617[address] [place], [place] [address]Dr. Yilan ChangCO2 [Moles/Vol]23.2 mmol/PFobvzo69.0-32.0The [facility] HospitalComment on above:Performed By: #### MG, CMP ####[facility] Duqgxzkmos2225[address] [place], [place] [address]Dr. Yilan ChangCreatinine [Mass/Vol]1.96 mg/dL Critically high0.55-1.02The [facility] HospitalComment on above:Performed By: #### MG, CMP ####[facility] Okhjzspznt118[address] [place], [place] [address]Dr. Yilan ChangEGFR-AF WAOVUDVU95 mL/min/1.81e7Eymhecuoru low>=60The [facility] HospitalComment on above:Performed By: #### MG, CMP ####[facility] Kydxbegzpe289[address] [place], [place] [address]Dr. Yilan ChangEGFR- NON AF BWSBWJRV84 mL/min/1.94e2Bouqiljdiy low>=60The [facility] HospitalComment on above:Performed By: #### MG, CMP ####[facility] Sndqaknbov189[address] [place], [place] [address]Dr. Yilan ChangGlobulin (S) [Mass/Vol]3.2 g/dLNormal The [facility] HospitalComment on above:Performed By: #### MG, CMP ####[facility] Jtfirkgtiv660[address] [place], [place] [address]Dr. Airam Tripathi Glucose [Mass/Vol]68 mg/dLCritically yjj08-185Gqo [facility] HospitalComment on above:Performed By: #### MG, CMP ####[facility] L[address]ktdnvhk[address] [place] [address]Dr. Airam TripathiPotassium [Moles/Vol]5.3 mmol/L Critically high3.5-5.1The [facility] HospitalComment on above:Performed By: #### MG, CMP ####[facility] Xlbycstovt[address] [place], [place] [address]Dr. Airam TripathiProtein [Mass/Vol]6.1 g/dLCritically low6.4-8.2The [facility] HospitalComment on above:Performed By: #### MG, CMP ####[facility] Hseehqthat110[address] [place], [place] [address]Dr. Selenaneil ChangSodium [Moles/Vol]133 mmol/LCritically nof345-148Mbr [facility] HospitalComment on above: Performed By: #### MG, CMP ####[facility] Wlsacrsdxh7825[address] [place], [place] [address]Dr. Airam ChangUrea nitrogen [Mass/Vol]39.0 mg/dL Critically high7.0-18.0The [facility] HospitalComment on above:Performed By: #### MG, CMP ####[facility] Qvejkgvayt899[address] [place], [place] [address]Dr. Selenaneil ChangUrea nitrogen/Creatinine [Mass ratio]19.9 mg/mgNormalThe [facility] HospitalComment on above:Performed By: #### MG, CMP ####[facility] Bmqeoriqbu119[address] [place], [place] [address]Dr. Selenaneil Tripathi SODIUM RANDOM URINEon 38-69-6166Ppmnyj (U) [Moles/Vol]37 mmol/ELhhzxf38-01Olx [facility] HospitalComment on above:Performed By: #### NICKOLAS ####[facility] Bkahgsxvtq028[address] [place], [place] [address]Dr.Airam TripathiUA RANDOM W/MICROSCOPICon 78-31-5404DHYUIRJAFGYRZArfdwuwaAWXI SEENThe [facility] Comment on above:Performed By: #### UAMIC ####[facility] Izqqqytpoq1613[address] [place], [place] [address]Dr. Yilan ChangBilirubin Ql (U)Negative NormalNEGATIVEMemorial Health SystemComment on above:Performed By: #### UAMIC ####[facility] Ssvlgdbaol7[address] [place], [place] [address]Dr. Yilan ChangCASTSEENAbnormalNONE SEENThe [facility] HospitalComment on above: Performed By: #### UAMIC ####[facility] Ajzpjyjtwm904[address] [place], [place] [address]Dr. Yilan ChangClarity (U)CLEARNormalCLEARMemorial Health SystemComment on above:Performed By: #### UAMIC ####[facility] Gfvjplmttv089[address] [place], [place] [address]Dr. Yilan ChangColor (U) YELLOWNormalYELLOWMemorial Health SystemComment on above:Performed By: #### UAMIC ####[facility] Dprqooxrjw204[address] [place], [place] [address]Dr. Yilan ChangCrystals LM Nom (Urine sed)NONE SEENNormalNONE SEENMemorial Health SystemComment on above:Performed By: #### UAMIC ####[facility] Gcozeptayg309[address] [place], [place] [address]Dr. Yilan ChangEpithelial cells LM Ql (Urine sed)RARENormalNONE SEEN /RAREThe [facility] HospitalComment on above:Performed By: #### UAMIC ####[facility] Zkrzutlshl[address] [place], [place] [address]Dr. Yilan ChangGlucose Ql (U)NegativeNormalNEGATIVEMain Campus Medical Center HospitalComment on above:Performed By: #### UAMIC ####[facility] Cghyweipth477[address] [place], [place] [address]Dr. Yilan Tripathi Hemoglobin Ql (U)NegativeNormalNEGATIVEMemorial Health SystemComment on above: Performed By: #### UAMIC ####[facility] Kqlehsnpzy556[address] [place], [place] [address]Dr. Yilan ChangHYALINE CASTRARENormalThe [facility] HospitalComment on above:Performed By: #### UAMIC ####[facility] [address]aqppht[address] [place] [address]Dr. Yilan ChangKetones Ql (U) TRACEAbnormalNEGATIVEThe [facility] HospitalComment on above:Performed By: #### UAMIC ####[facility] Ctjkticobi9[address] [place], [place] [address]Dr. Yilan ChangLEUKOCYTESNegativeNormalNEGATIVEThe [facility] HospitalComment on above:Performed By: #### UAMIC ####[facility] Rzbfgcgjaw8369[address] [place], [place] [address]Dr. Airam TripathiMUCOUSNONE SEENNormalNONE SEENMemorial Health SystemComment on above:Performed By: #### UAMIC ####[facility] Xettgcmqls500[address] [place], [place] [address]Dr. Airam ChangNitrite Ql (U)NegativeNormalNEGATIVEThe [facility] HospitalComment on above:Performed By: #### UAMIC ####[facility] Ndsqgcmrph9159[address] [place], [place] [address]Dr. Airam ChangpH (U)5.0 [pH]Normal5-9The [facility] HospitalComment on above:Performed By: #### UAMIC ####[facility] Bgzyecrtsj223[address] [place], [place] [address]Dr. Selenalan UejvrISA9-5Jyymot3-7Gsl [facility] Comment on above:Performed By: #### UAMIC ####[facility] Xkjplmqfns110[address] [place], [place] [address]Dr. Airam TripathiSPEC GRAVITY1.015Normal 1.005-<=1.025The [facility] HospitalComment on above:Performed By: #### UAMIC ####[facility] Ttbbmstlch300[address] [place], [place] [address]Dr. Selenalan DeuceUA PROTEINNegativeNormalNEGATIVE/ TRACEThe [facility] HospitalComment on above:Performed By: #### UAMIC ####[facility] Xbmlvxowfs996[address] [place], [place] [address]Dr. Yilan ChangUrobilinogen Qn (U)0.2 {Ligia'U}/dL Normal0.2 - 1.0The [facility] HospitalComment on above:Performed By: #### UAMIC ####[facility] Emfdixpdyx74[address] [place] [address]Dr. Airam ChangWBCNONE SEENNormalNONE SEENThe [facility] HospitalComment on above: Performed By: #### UAMIC ####[facility] Uxidgrumzi7[address] [place], [place] [address]Dr. Airam ChangCBC AUTO DIFFon 13-20-7905LSVY #0.0 103/ulNormal0.0-0.1The [facility] HospitalCommclaren flint on above:Performed By: #### CBC ####[facility] Hjbbteadmz579[address] [place], [place] [address]Dr. Airam ChangBasophils/100 WBC (Bld)0.3 %Normal0.2-2.0The [facility] on above:Performed By: #### CBC ####[facility] Xfeokiwlys286[address] [place], [place] [address]Dr.Selenalan ChangEO #0.2 103/ulNormal0.0-0.7The [facility] on above:Performed By: #### CBC ####[facility] Rqbyzphefp26[address] [place], [place] [address]Dr.Airam ChangEosinophils/100 WBC (Bld)3.2 %Normal0.9-7.0The [facility] Centerment on above:Performed By: #### CBC ####[facility] Gmgomvuqjp133[address] [place], [place] [address]Dr.Airam ChangErythrocyte distribution width (RBC) [Ratio]15.1 %Critically high11.0-15.0The [facility] on above:Performed By: #### CBC ####[facility] Itozeblzuh078[address] [place], [place] [address]Dr. Airam ChangHematocrit (Bld) [Volume fraction]27.6 %Critically low36.0-48.0The [facility] HospitalComment on above:Performed By: #### CBC ####[facility] V[address]zfiytwn[address] [place] [address]Dr.Airam TripathiHemoglobin (Bld) [Mass/Vol]8.7 g/dLCritically low12.0-16.0The [facility] HospitalComment on above:Performed By: #### CBC ####[facility] Xodgyagkxv[address] [place], [place] [address]Dr.Airam ChangIG #0.03 10e3/ulNormal0.00-0.03The [facility] HospitalComment on above:Performed By: #### CBC ####[facility] Xgqliflavh852[address] [place], [place] [address]Dr.Airam DeuceIG %0.4 %Normal 0.0-0.5The [facility] HospitalComment on above:Performed By: #### CBC ####[facility] Ekxtimyvel029[address] [place], [place] [address]Dr.Airam DeuceLYMPH #1.2 103/ulNormal1.2-3.8The [facility] HospitalComment on above:Performed By: #### CBC ####[facility] Eoxltyeepl137[address] [place], [place] [address]Dr.Airam TripathiLymphocytes/100 WBC (Bld)16.4 %Critically low20.5-60.0The [facility] HospitalComment on above:Performed By: #### CBC ####[facility] Szhrtvwtue[address] [place], [place] [address]Dr.Airam TripathiMANUAL DIFF REQ NONormalThe [facility] HospitalComment on above:Performed By: #### CBC ####[facility] Fchptjbukw9[address] [place], [place] [address]Dr. Airam TripathiK[facility] (RBC) [Entitic mass]28.5 rdWaxoor81.7-34.0The [facility] Comment on above:Performed By: #### CBC ####[facility] Ydeutcchyk146[address] [place], [place] [address]Dr.Airam TripathiNASS[facility] (RBC) [Mass/Vol]31.5 g/dL Ixijpg29.9-35.2The [facility] HospitalComment on above:Performed By: #### CBC ####[facility] Ichygtbhpx258[address] [place], [place] [address]Dr. Airam TripathiMCV (RBC) [Entitic vol]90.5 oWPuniez96.0-99.0The [facility] Comment on above:Performed By: #### CBC ####[facility] Wsgnbxbzmo[address] [place], [place] [address]Dr.Airam TripathiMONO #0.5 103/ulNormal0.3-0.8 The [facility] HospitalComment on above:Performed By: #### CBC ####[facility] Wcismjgtgj[address] [place], [place] [address]DrBroderick Tripathi Monocytes/100 WBC (Bld)7.3 %Normal1.7-12.0The [facility] HospitalComment on above: Performed By: #### CBC ####[facility] Smryupahet85[address] [place], [place] [address]Dr.Airam TripathiNEUT #5.4 103/ulNormal1.4-6.5The [facility] HospitalComment on above:Performed By: #### CBC ####[facility] Vmtygcsdem[address] [place], [place] [address]Dr.Airam TripathiNeutrophils/100 WBC (Bld)72.4 %Vmmeog78.0-75.0The [facility] HospitalComment on above:Performed By: #### CBC ####[facility] Blygeztffk[address] [place], [place] [address]Dr.Airam TripathiPlatelet mean volume (Bld) [Entitic vol]9.1 fLCritically low 9.5-13.5The [facility] HospitalComment on above:Performed By: #### CBC ####[facility] Kwzfaejpex[address] [place], [place] [address]Dr. Airam BihwyTCC969 103/nyTabwnj134-174Wet [facility] HospitalComment on above: Performed By: #### CBC ####[facility] Ntnfpjliox763[address] [place], [place] [address]Dr.Yilan ChangRBC3.05 106/ulCritically low4.20-5.40The [facility] HospitalComment on above:Performed By: #### CBC ####[facility] [address] [place] [address]Dr.Yineil ChangWBC7.4 103/ul Normal4.0-11.0The [facility] HospitalComment on above:Performed By: #### CBC ####[facility] Yitwclccsa[address] [place], [place] [address]Dr. Yilan ChangPROF 14(COMP METB)on 35-72-1920Qdkxigb [Mass/Vol]3.3 g/dLCritically low3.4-5.0The [facility] HospitalComment on above:Performed By: #### CMP ####[facility] Jqoetfuhwr096[address] [place], [place] [address]Dr. Airam ChangAlbumin/Globulin [Mass ratio]0.9 {ratio}NormalThe [facility] Comment on above:Performed By: #### CMP ####[facility] Jgceuhcscm[address] [place], [place] [address]Dr.Selenalan ChangALP [Catalytic activity/Vol] 127 U/LCritically swhi28-412Jdx [facility] HospitalComment on above:Performed By: #### CMP ####[facility] Tjgeorttyw430[address] [place], [place] [address]Dr.Airam ChangALT [Catalytic activity/Vol]29 U/NFwbrnx47-00Bjr [facility] HospitalComment on above:Performed By: #### CMP ####[facility] Xfynvwauxg214[address] [place], [place] [address]Dr.Airam ChangAnion gap [Moles/Vol]14.6 mmol/LNormalThe [facility] HospitalComment on above:Performed By: #### CMP ####[facility] Ckdeuwqrrv136[address] [place], [place] [address]Dr.Yilan ChangAST [Catalytic activity/Vol]28 U/XWsmfnr72-77Vmj [facility] HospitalComment on above:Performed By: #### CMP ####[facility] Dzeseziudz4[address] StreetB[place], [place] [address]Ko.Yilan ChangBilirubin [Mass/Vol]0.3 mg/dLNormal0.2-1.0The [facility] HospitalComment on above:Performed By: #### CMP ####[facility] Zynyapdjlq7669[address] [place], [place] [address]Dr.Yilan ChangCalcium [Mass/Vol]8.9 mg/dLNormal8.5-10.1The [facility] HospitalComment on above:Performed By: #### CMP ####[facility] Qqgxjfkuur7914[address] [place], [place] [address]Dr.Yilan ChangChloride [Moles/Vol]99 mmol/KFcukzx77-884Vel [facility] HospitalComment on above:Performed By: #### CMP ####[facility] Hsqnjpdttn784[address] [place], [place] [address]Dr.Yilan ChangCO2 [Moles/Vol]25.1 mmol/EJzijev11.0-32.0The [facility] HospitalComment on above:Performed By: #### CMP ####[facility] Rpxkordfkr24[address] [place], [place] [address]Dr.Yilan ChangCreatinine [Mass/Vol]1.42 mg/dLCritically high0.55-1.02The [facility] HospitalComment on above:Performed By: #### CMP ####[facility] Accltejpqi215[address] [place], [place] [address]Dr.Yilan ChangEGFR-AF OZWLDHIF03 mL/min/1.73m2 Critically low>=60The [facility] HospitalComment on above:Performed By: #### CMP ####[facility] Fswwywqviy9[address] [place], [place] [address]Dr. Yilan ChangEGFR-NON AF MYYHRLCQ93 mL/min/1.48n6Utthryoscc low>=60The [facility] HospitalComment on above:Performed By: #### CMP ####[facility] Twvlarugnq464[address] [place], [place] [address]Dr.Yilan ChangGlobulin (S) [Mass/Vol]3.6 g/dLNormalThe [facility] HospitalComment on above:Performed By: #### CMP ####[facility] [address]pe[address]ixzde[address] [place] [address]Dr.Selenalan ChangGlucose [Mass/Vol]79 mg/hSRcrbfh69-957Kyc [facility] Comment on above:Performed By: #### CMP ####[facility] Pzkaetkbmo[address] [place] [address]Dr.Airam ChangPotassium [Moles/Vol]5.7 mmol/LCritically high3.5-5.1The [facility] HospitalComment on above:Performed By: #### CMP ####[facility] Hizkecimkp13[address] [place], [place] [address]Dr.Yilan ChangProtein [Mass/Vol]6.9 g/dLNormal6.4-8.2The [facility] Comment on above:Performed By: #### CMP ####[facility] Jhzpdeowws008[address] [place], [place] [address]Dr.Selenalan ChangSodium [Moles/Vol]133 mmol/L Critically yjb720-870Ldl [facility] HospitalComment on above:Performed By: #### CMP ####[facility] Affxlzrdqu310[address] [place], [place] [address]Dr. Selenalan ChangUrea nitrogen [Mass/Vol]35.0 mg/dLCritically high7.0-18.0The [facility] HospitalComment on above:Performed By: #### CMP ####[facility] Geahopbocx834[address] [place], [place] [address]Dr.Selenalan ChangUrea nitrogen/Creatinine [Mass ratio]24.6 mg/mgNormalThe [facility] HospitalComment on above:Performed By: #### CMP ####[facility] Akeyeuciud805[address] [place], [place] [address]Dr.Selenalan ChangOSMOLALITYon 39-98-4066Elrxdtazjc [Osmolality]277 mosm/ggTmqdri303-047Dpq [facility] HospitalComment on above: Performed By: #### OSMO ####[facility] Anozmkksvt39[address] [place], [place] [address]Dr. Airam ChangCBC AUTO DIFFon [id number] #0.0 103/ulNormal0.0-0.1The [facility] HospitalComment on above:Performed By: #### CBC ####[facility] Ogbhnchdwg3513[address] [place], [place] [address]Dr. Selenalan ChangBasophils/100 WBC (Bld)0.5 %Normal0.2-2.0The [facility] HospitalComment on above:Performed By: #### CBC ####[facility] Wxnrbkvsus[address] [place], [place] [address]Dr.Yilan ChangEO #0.2 103/ulNormal0.0-0.7The [facility] HospitalComment on above:Performed By: #### CBC ####[facility] Iiricxrsvk600[address] [place], [place] [address]Dr.Selenalan ChangEosinophils/100 WBC (Bld)3.2 %Normal0.9-7.0The [facility] HospitalComment on above:Performed By: #### CBC ####[facility] Czeolmwltf888[address] [place], [place] [address]Dr.Airam ChangErythrocyte distribution width (RBC) [Ratio]15.1 %Critically high11.0-15.0The [facility] HospitalComment on above:Performed By: #### CBC ####[facility] Qandxxcyqy4325[address] [place], [place] [address]Dr. Airam ChangHematocrit (Bld) [Volume fraction]26.2 %Critically low36.0-48.0The [facility] HospitalComment on above:Performed By: #### CBC ####[facility] Xkodqqqifd9999[address] [place], [place] [address]Dr.Airam ChangHemoglobin (Bld) [Mass/Vol]8.1 g/dLCritically low12.0-16.0The [facility] HospitalComment on above:Performed By: #### CBC ####[facility] Zkycpjlefa504[address] [place], [place] [address]Dr.Selenalan ChangIG #0.02 10e3/ulNormal0.00-0.03The [facility] HospitalComment on above:Performed By: #### CBC ####[facility] Rm[address]fymfgz[address] [place] [address]Dr.Airam TripathiIG %0.4 %Normal 0.0-0.5The [facility] HospitalComment on above:Performed By: #### CBC ####[facility] Hnpxwugmdu0718[address] [place], [place] [address]Dr.Airam TripathiLYMPH #1.3 103/ulNormal1.2-3.8The [facility] HospitalComment on above:Performed By: #### CBC ####[facility] Mxjjuoxoee26[address] [place], [place] [address]Dr.Airam TripathiLymphocytes/100 WBC (Bld)22.6 %Bwfacz62.5-60.0The [facility] HospitalComment on above:Performed By: #### CBC ####[facility] Ortompiopo2129[address] [place], [place] [address]Dr.Airam TripathiMANUAL DIFF REQ NONormalThe [facility] HospitalComment on above:Performed By: #### CBC ####[facility] Fpyivwcnix6812[address] [place], [place] [address]Dr. Airam TripathiH (RBC) [Entitic mass]28.0 yqRkfmnn88.7-34.0The [facility] Comment on above:Performed By: #### CBC ####[facility] Hfjzegdlmz8049[address] [place], [place] [address]Dr.Airam TripathiHC (RBC) [Mass/Vol]30.9 g/dL Jzazbd01.9-35.2The [facility] HospitalComment on above:Performed By: #### CBC ####[facility] Zmhxujmjjh1599[address] [place], [place] [address]Dr. Airam TripathiV (RBC) [Entitic vol]90.7 xCIwouyr48.0-99.0The [facility] Comment on above:Performed By: #### CBC ####[facility] Morhktwmow97[address] [place], [place] [address]Dr.Airam TripathiMONO #0.5 103/ulNormal0.3-0.[address] [facility] HospitalComment on above:Performed By: #### CBC ####[facility] Fcchhbqmlo8[address] [place] [address]Dr.Airam Tripathi Monocytes/100 WBC (Bld)9.6 %Normal1.7-12.0The [facility] HospitalCommclaren flint on above: Performed By: #### CBC ####[facility] Efucsjhxwh6825[address] [place], [place] [address]Dr.Airam TripathiNEUT #3.6 103/ulNormal1.4-6.5The [facility] HospitalComment on above:Performed By: #### CBC ####[facility] Bitjbgvhaw612[address] [place], [place] [address]Dr.Airam TripathiNeutrophils/100 WBC (Bld)63.7 %Aoqnxc77.0-75.0The [facility] on above:Performed By: #### CBC ####[facility] Lphrivunfo372[address] [place], [place] [address]Dr.Airam TripathiPlatelet mean volume (Bld) [Entitic vol]9.4 fLCritically low 9.5-13.5The [facility] on above:Performed By: #### CBC ####[facility] Vcmjcwvkwu8718[address] [place], [place] [address]Dr. Airam ZsmnsGGV782 103/jfTrjyhs529-202Ylt [facility] on above: Performed By: #### CBC ####[facility] Zwrldclsfi230[address] [place], [place] [address]Dr.Airam ChangRBC2.89 106/ulCritically low4.20-5.40The [facility] on above:Performed By: #### CBC ####[facility] Zhnkeltrkg674[address] [place], [place] [address]Dr.Airam ChangWBC5.6 103/ul Normal4.0-11.0The [facility] HospitalCommclaren flint on above:Performed By: #### CBC ####[facility] Jmoeawlrod24[address] [place], [place] [address]Dr. Airam ChangPROF 14(COMP METB)on 40-24-0964Gizigfn [Mass/Vol]3.0 g/dLCritically low3.4-5.0The [facility] HospitalComment on above:Performed By: #### CMP ####[facility] K[address]jqzsszpb[address] [place] [address]Dr. Yilan ChangAlbumin/Globulin [Mass ratio]1.1 {ratio}NormalThe [facility] Comment on above:Performed By: #### CMP ####[facility] Qrwlwtwmsz69[address] [place] [address]Dr.Yilan ChangALP [Catalytic activity/Vol] 102 U/SZbpyaa50-005Fnd [facility] HospitalComment on above:Performed By: #### CMP ####[facility] Weqrzamkwk44220[address] [place], [place] [address]Dr. Yilan ChangALT [Catalytic activity/Vol]20 U/JYkkshm66-48Cst [facility] Comment on above:Performed By: #### CMP ####[facility] Pjhlvswgnq020[address] [place], [place] [address]Dr.Yilan ChangAnion gap [Moles/Vol]11.1 mmol/LNormalThe [facility] HospitalComment on above:Performed By: #### CMP ####[facility] Ayfttwhwfz038[address] [place], [place] [address]Dr. Yilan ChangAST [Catalytic activity/Vol]18 U/HGbrodn86-46Non [facility] Comment on above:Performed By: #### CMP ####[facility] Kycpmfvlje745[address] [place], [place] [address]Dr.Yilan ChangBilirubin [Mass/Vol]0.2 mg/dL Normal0.2-1.0The [facility] HospitalComment on above:Performed By: #### CMP ####[facility] Gfidisikpn301[address] [place], [place] [address]Dr. Yilan ChangCalcium [Mass/Vol]8.0 mg/dLCritically low8.5-10.1The [facility] HospitalComment on above:Performed By: #### CMP ####[facility] Assywyxfir[address] [place], [place] [address]Dr.Yilan ChangChloride [Moles/Vol]100 mmol/TKblblb87-443Exi [facility] HospitalComment on above:Performed By: #### CMP ####[facility] Ihspsrvsxn794[address] [place], [place] [address]Dr.Yilan ChangCO2 [Moles/Vol]24.8 mmol/NPbwupy96.0-32.0The [facility] HospitalComment on above:Performed By: #### CMP ####[facility] Pvadrxbhva1459[address] [place], [place] [address]Dr.Yilan ChangCreatinine [Mass/Vol]1.11 mg/dLCritically high0.55-1.02The [facility] HospitalComment on above:Performed By: #### CMP ####[facility] Srteihjrqg648[address] [place], [place] [address]Dr.Yilan ChangEGFR-AF CUBAN>60Normal>=60The [facility] HospitalCommclaren flint on above:Performed By: #### CMP ####[facility] Zeelrglgif76260[address] [place], [place] [address]Dr.Yilan ChangEGFR-NON AF DNDXHTFS89 mL/min/1.29s6Qkxaphbrcr low>=60The [facility] HospitalComment on above: Performed By: #### CMP ####[facility] Qouczbpokb938[address] [place], [place] [address]Dr.Yilan ChangGlobulin (S) [Mass/Vol]2.8 g/dLNormalThe [facility] HospitalCommclaren flint on above:Performed By: #### CMP ####[facility] Kzomzubpxi8[address] [place], [place] [address]Dr.Yilan ChangGlucose [Mass/Vol]77 mg/oZWvmuwu04-962Vhi [facility] HospitalComment on above:Performed By: #### CMP ####[facility] Uhgmmepltu[address] [place], [place] [address]Dr.Yilan ChangPotassium [Moles/Vol]4.9 mmol/LNormal3.5-5.1The [facility] HospitalComment on above:Performed By: #### CMP ####[facility] Htvxwaqdcz78230[address] [place], [place] [address]Dr.Yilan ChangProtein [Mass/Vol]5.8 g/dLCritically low6.4-8.2The [facility] HospitalComment on above: Performed By: #### CMP ####[facility] Hvpiyrqioo[address] [place] [address]Dr.Airam ChangSodium [Moles/Vol]131 mmol/LCritically ktl486-901Opl [facility] HospitalCommclaren flint on above:Performed By: #### CMP ####[facility] Xzytnevmwa[address] [place] [address]Dr. Airam ChangUrea nitrogen [Mass/Vol]33.0 mg/dLCritically high7.0-18.0The [facility] HospitalCommclaren flint on above:Performed By: #### CMP ####[facility] Sfkogiywvp148[address] [place], [place] [address]Dr.Selenalan ChangUrea nitrogen/Creatinine [Mass ratio]29.7 mg/mgNoCleveland Clinic Fairview HospitalCommclaren flint on above:Performed By: #### CMP ####[facility] Dkvukrdkka6[address] [place], [place] [address]Dr.Selenaneil ChangECHOCARDIO M/2D COMPLETEon 09-21-2022 ECHOCARDIO M/2D [facility] CenterOSMOLALITYon 09-21-2022 Osmolality [Osmolality]282 mosm/waOdctne041-065Drc [facility] on above:Performed By: #### OSMO ####[facility] Ldvtfwavix534[address] [place], [place] [address]Dr. Selenaneil DeucePHOSPHOLIPIDSon 09-21-2022 Phospholipids, Hrmdt864 mg/aFKewavs566-658Ack [facility] on above: Performed By: #### PHOSLIP ####[facility] Wlhxdhqrxz148[address] [place], [place] [address]Dr. Airam TripathiCBC AUTO DIFFon [id number] #0.0 103/ulNormal0.0-0.1The [facility] on above:Performed By: #### CBC ####[facility] Oyizjjwjsi886[address] [place], [place] [address]Dr. Selenalan ChangBasophils/100 WBC (Bld)0.5 %Normal0.2-2.0The [facility] HospitalComment on above:Performed By: #### CBC ####[facility] Kudzfbvqvu005[address] [place], [place] [address]Dr.Yilan ChangEO #0.2 103/ulNormal0.0-0.7The [facility] HospitalComment on above:Performed By: #### CBC ####[facility] Dvxjtdlqoa301[address] [place], [place] [address]Dr.Selenalan ChangEosinophils/100 WBC (Bld)2.9 %Normal0.9-7.0The [facility] HospitalComment on above:Performed By: #### CBC ####[facility] Zatmwlmlya2714[address] [place], [place] [address]Dr.Selenalan ChangErythrocyte distribution width (RBC) [Ratio]15.4 %Critically high11.0-15.0The [facility] HospitalComment on above:Performed By: #### CBC ####[facility] Qlnluhbcya6299[address] [place], [place] [address]Dr. Airam ChangHematocrit (Bld) [Volume fraction]26.3 %Critically low36.0-48.0The [facility] HospitalComment on above:Performed By: #### CBC ####[facility] Ufbzumxhnp844[address] [place], [place] [address]Dr.Airam ChangHemoglobin (Bld) [Mass/Vol]8.2 g/dLCritically low12.0-16.0The [facility] HospitalComment on above:Performed By: #### CBC ####[facility] Frcgkbuhtr3618[address] [place], [place] [address]Dr.Yilan ChangIG #0.03 10e3/ulNormal0.00-0.03The [facility] HospitalComment on above:Performed By: #### CBC ####[facility] Osbmpelfni[address] [place], [place] [address]Dr.Yilan ChangIG %0.4 %Normal 0.0-0.5The [facility] HospitalComment on above:Performed By: #### CBC ####[facility] Aykvecdghe504[address] [place], [place] [address]Dr.Yilan ChangLYMPH #1.9 103/ulNormal1.2-3.8The [facility] HospitalComment on above:Performed By: #### CBC ####[facility] Hggjjqojai004[address] [place], [place] [address]Dr.Airam TripathiLymphocytes/100 WBC (Bld)23.0 %Ahjyjv22.5-60.0The [facility] HospitalComment on above:Performed By: #### CBC ####[facility] Bdfbzmummj499[address] [place], [place] [address]Dr.Selenaneil DeuceMANUAL DIFF REQ NONormalThe [facility] HospitalComment on above:Performed By: #### CBC ####[facility] Rhxufribrt49380[address] [place], [place] [address]Dr. Airam TripathiH (RBC) [Entitic mass]28.5 mnWngyci55.7-34.0The [facility] Comment on above:Performed By: #### CBC ####[facility] Hinywwqnox69030[address] [place], [place] [address]Dr.Airam TripathiHC (RBC) [Mass/Vol]31.2 g/dL Oxxjwq36.9-35.2The [facility] HospitalComment on above:Performed By: #### CBC ####[facility] Ozebnhliaf15[address] [place], [place] [address]Dr. Airam TripathiV (RBC) [Entitic vol]91.3 mZOwjzzm83.0-99.0The [facility] Comment on above:Performed By: #### CBC ####[facility] Bzirfjzoyu398[address] [place], [place] [address]DrBroderick DeuceMONO #0.7 103/ulNormal0.3-0.[address] [facility] HospitalComment on above:Performed By: #### CBC ####[facility] Vmovlsruwk9[address] [place], [place] [address]DrKiannaSelenaneil Tripathi Monocytes/100 WBC (Bld)7.7 %Normal1.7-12.0The [facility] HospitalComment on above: Performed By: #### CBC ####[facility] Wbmuwfsmcb9[address] [place], [place] [address]DrBroderick TripathiNEUT #5.5 103/ulNormal1.4-6.5The [facility] HospitalComment on above:Performed By: #### CBC ####[facility] Yjnamezgeo3[address] [place] [address]Dr.Airam TripathiNeutrophils/100 WBC (Bld)65.5 %Bptzpg96.0-75.0The [facility] HospitalComment on above:Performed By: #### CBC ####[facility] Wjfehrrakk467[address] [place], [place] [address]Dr.Airam TripathiPlatelet mean volume (Bld) [Entitic vol]9.1 fLCritically low 9.5-13.5The [facility] HospitalComment on above:Performed By: #### CBC ####[facility] Khhqmjiczt280[address] [place], [place] [address]Dr. Airam TqzweQTE262 103/uxXhnzfb809-299Tka [facility] HospitalComment on above: Performed By: #### CBC ####[facility] Bsrlcatxbl403[address] [place], [place] [address]Dr.Airam TripathiRBC2.88 106/ulCritically low4.20-5.40The [facility] HospitalComment on above:Performed By: #### CBC ####[facility] Lzzqigoasc987[address] [place], [place] [address]Dr.Airam TripathiWBC8.4 103/ul Normal4.0-11.0The [facility] HospitalComment on above:Performed By: #### CBC ####[facility] Lbuuhftxnh[address] [place], [place] [address]Dr. Airam TripathiPROF CHEM 8 (BAS METB)on 34-92-5194Vuerv gap [Moles/Vol]10.3 mmol/L NormalThe [facility] HospitalComment on above:Performed By: #### BMP ####[facility] Xubvjzfbat99[address] [place], [place] [address]Dr.Airam Tripathi Calcium [Mass/Vol]7.9 mg/dLCritically low8.5-10.1The [facility] HospitalComment on above:Performed By: #### BMP ####[facility] [address]jxxnwzmji[address] [place] [address]Dr.Yilan ChangChloride [Moles/Vol]98 mmol/LNormal 98-107The [facility] Centerment on above:Performed By: #### BMP ####[facility] Pcwxdejqsc724[address] [place], [place] [address]Dr.Yilan ChangCO2 [Moles/Vol]27.5 mmol/CFabmyy60.0-32.0The [facility] HospitalComment on above: Performed By: #### BMP ####[facility] Fhptdxslzn178[address] [place], [place] [address]Dr.Yilan ChangCreatinine [Mass/Vol]1.44 mg/dL Critically high0.55-1.02The [facility] HospitalCommclaren flint on above:Performed By: #### BMP ####[facility] Kfpyyiqyqv794[address] [place], [place] [address]Dr.Yilan ChangEGFR-AF XXXJKYCD71 mL/min/1.60s5Abobpszzzi low>=60The [facility] Centerment on above:Performed By: #### BMP ####[facility] Zvqmoycmyq7[address] [place], [place] [address]Dr.Yilan ChangEGFR-NON AF DIGCAHOS61 mL/min/1.58a4Llxsdbwgvq low>=60The [facility] HospitalCommclaren flint on above: Performed By: #### BMP ####[facility] Pddsjuapmo[address] [place], [place] [address]Dr.Yilan ChangGlucose [Mass/Vol]91 mg/tGIkzhyv52-604 The [facility] on above:Performed By: #### BMP ####[facility] Ttcwxfhtzh[address] [place], [place] [address]Dr.Yilan Tripathi Potassium [Moles/Vol]4.8 mmol/LNormal3.5-5.1The [facility] HospitalComment on above:Performed By: #### BMP ####[facility] Jjzkizebvn[address] [place], [place] [address]Dr.Yilan ChangSodium [Moles/Vol]131 mmol/LCritically wju977-737Lsq [facility] HospitalComment on above:Performed By: #### BMP ####[facility] Xyijreonks[address] [place] [address]Dr. Yilan ChangUrea nitrogen [Mass/Vol]40.0 mg/dLCritically high7.0-18.0The [facility] HospitalComment on above:Performed By: #### BMP ####[facility] Ggleyxtikn8[address] [place], [place] [address]Dr.Yilan ChangUrea nitrogen/Creatinine [Mass ratio]27.8 mg/mgNormalThe [facility] HospitalComment on above:Performed By: #### BMP ####[facility] Zdtjniapsi649104 [address] [place], [place] [address]Dr.Yilan ChangAnion gap [Moles/Vol]10.6 mmol/LNormal The [facility] HospitalComment on above:Performed By: #### BMP ####[facility] Ovquwmnwwl[address] [place], [place] [address]Dr.Yilan Tripathi Calcium [Mass/Vol]7.9 mg/dLCritically low8.5-10.1The [facility] HospitalComment on above:Performed By: #### BMP ####[facility] Zksqasgsvd[address] [place], [place] [address]Dr.Yilan ChangChloride [Moles/Vol]101 mmol/LNormal 98-107The [facility] HospitalCommclaren flint on above:Performed By: #### BMP ####[facility] Isxyyvunwh52[address] [place], [place] [address]Dr.Yilan ChangCO2 [Moles/Vol]27.4 mmol/JAfzcvl38.0-32.0The [facility] HospitalComment on above: Performed By: #### BMP ####[facility] Mkngrvjtcy80[address] [place], [place] [address]Dr.Yilan ChangCreatinine [Mass/Vol]1.35 mg/dL Critically high0.55-1.02The [facility] HospitalComment on above:Performed By: #### BMP ####[facility] Xhuanlacnt18[address] [place], [place] [address]Dr.Yilan ChangEGFR-AF NPRJGZUO51 mL/min/1.86b1Ghpwhczwba low>=60The [facility] HospitalComment on above:Performed By: #### BMP ####[facility] Qedrsolfgy[address] [place] [address]Dr.Yilan ChangEGFR-NON AF ZYTJAPDY52 mL/min/1.00m0Fdmdhowjmy low>=60The [facility] HospitalComment on above: Performed By: #### BMP ####[facility] Hhmroqbaot[address] [place] [address]Dr.Yilan ChangGlucose [Mass/Vol]114 mg/dLCritically ahrq24-092Kas [facility] HospitalComment on above:Performed By: #### BMP ####[facility] Lwyxtuydsm489[address] [place], [place] [address]Dr. Yilan ChangPotassium [Moles/Vol]5.0 mmol/LNormal3.5-5.1The [facility] Comment on above:Performed By: #### BMP ####[facility] Ztkgkfypjr9[address] [place], [place] [address]Dr.Yilan ChangSodium [Moles/Vol]134 mmol/L Critically sjh103-620Zmr [facility] HospitalComment on above:Performed By: #### BMP ####[facility] Xkivtiwlmm377[address] [place], [place] [address]Dr. Selenaneil ChangUrea nitrogen [Mass/Vol]40.0 mg/dLCritically high7.0-18.0The [facility] HospitalComment on above:Performed By: #### BMP ####[facility] Iyhlgrixfc8037[address] [place], [place] [address]Dr.Yilan ChangUrea nitrogen/Creatinine [Mass ratio]29.6 mg/mgNormalThe [facility] HospitalComment on above:Performed By: #### BMP ####[facility] Zewwzipqlw[address] [place], [place] [address]Dr.Airam TripathiPTH INTACTon 12-45-3988PQB, Culhdr160 pg/mLCritically nlno36-57Fai [facility] HospitalComment on above:Performed By: #### PTHINT ####[facility] Voeccnzurm006[address] [place], [place] [address]Dr. Airam TripathiBNPon 11-49-7587Tqgblwlykgw peptide B (Bld) [Mass/Vol]1272.0 pg/mLCritically high<=900.0The [facility] HospitalComment on above:Performed By: #### HSTROPN, TSH, K, BNP ####[facility] Kl[address] [place] [address]Dr. Airam ChangCBC AUTO DIFFon 67-93-0964GUUO #0.0 103/ulNormal0.0-0.1The [facility] HospitalComment on above:Performed By: #### CBC ####[facility] Intsddnbpl310[address] [place], [place] [address]Dr. Airam ChangBasophils/100 WBC (Bld)0.5 %Normal0.2-2.0The [facility] HospitalComment on above:Performed By: #### CBC ####[facility] Iclikluoll[address] [place], [place] [address]Dr.Yilan ChangEO #0.2 103/ulNormal0.0-0.7The [facility] HospitalComment on above:Performed By: #### CBC ####[facility] Rpxhaejbjg5727[address] [place], [place] [address]Dr.Airam ChangEosinophils/100 WBC (Bld)2.6 %Normal0.9-7.0The [facility] Centerment on above:Performed By: #### CBC ####[facility] Rresobfnfw8959[address] [place], [place] [address]Dr.Airam ChangErythrocyte distribution width (RBC) [Ratio]15.5 %Critically high11.0-15.0The [facility] HospitalComment on above:Performed By: #### CBC ####[facility] Pupvhlmvra9427[address] [place], [place] [address]Dr. Airam ChangHematocrit (Bld) [Volume fraction]31.1 %Critically low36.0-48.0The [facility] HospitalComment on above:Performed By: #### CBC ####[facility] Fbglhjiriv8814[address] [place], [place] [address]Dr.Airam ChangHemoglobin (Bld) [Mass/Vol]9.6 g/dLCritically low12.0-16.0The [facility] HospitalComment on above:Performed By: #### CBC ####[facility] Lihgebjlit660[address] [place], [place] [address]Dr.Airam TripathiIG #0.04 10e3/ulCritically high0.00-0.03 The [facility] HospitalComment on above:Performed By: #### CBC ####[facility] Yofpctnhij1379[address] [place], [place] [address]Dr.Airam TripathiIG % 0.5 %Normal0.0-0.5The [facility] HospitalComment on above:Performed By: #### CBC ####[facility] Dsoixyxswc326204 [address] [place], [place] [address]Dr. Airam TripathiLYMPH #1.0 103/ulCritically low1.2-3.8The [facility] HospitalComment on above:Performed By: #### CBC ####[facility] Ionbfexgmh258504 [address] [place], [place] [address]Dr.Airam Dossmphocytes/100 WBC (Bld)12.0 % Critically low20.5-60.0The [facility] HospitalComment on above:Performed By: #### CBC ####[facility] Nnfkirmkeh922[address] [place], [place] [address]Dr. Airam TripathiMANUAL DIFF REQNONormalThe [facility] HospitalComment on above: Performed By: #### CBC ####[facility] Pzuqidkjpw584[address] [place], [place] [address]Dr.Airam TripathiK[facility] (RBC) [Entitic mass]28.2 pgNormal 26.7-34.0The [facility] HospitalComment on above:Performed By: #### CBC ####[facility] Jvbidzanza716[address] [place], [place] [address]Dr. Airam TripathiHC (RBC) [Mass/Vol]30.9 g/tFIolhfw55.9-35.2The [facility] Comment on above:Performed By: #### CBC ####[facility] Tvenaercxh4899[address] [place], [place] [address]Dr.Airam TripathiMCV (RBC) [Entitic vol]91.5 fL Uqiedx70.0-99.0The [facility] HospitalComment on above:Performed By: #### CBC ####[facility] Khucedoxbf702[address] [place], [place] [address]Dr. Airam TripathiMONO #0.5 103/ulNormal0.3-0.8The [facility] HospitalComment on above: Performed By: #### CBC ####[facility] Kkioeenxie265[address] [place], [place] [address]Dr.Airam TripathiMonocytes/100 WBC (Bld)6.4 %Normal 1.7-12.0The [facility] HospitalComment on above:Performed By: #### CBC ####[facility] Bbbtejbebm896[address] [place], [place] [address]Dr. Airam TripathiNEUT #6.4 103/ulNormal1.4-6.5The [facility] HospitalComment on above: Performed By: #### CBC ####[facility] Kjmndrzcnc0199[address] [place], [place] [address]Dr.Airam TripathiNeutrophils/100 WBC (Bld)78.0 % Critically high43.0-75.0The [facility] HospitalComment on above:Performed By: #### CBC ####[facility] Fbrwvniewb609[address] [place], [place] [address]Dr. Airam TripathiPlatelet mean volume (Bld) [Entitic vol]9.1 fLCritically low9.5-13.[address] [facility] HospitalComment on above:Performed By: #### CBC ####[facility] Xxxftqubcd530[address] [place], [place] [address]Dr.Airam YgbthIAW976 103/eoSkqvvo108-381Yxv [facility] HospitalComment on above:Performed By: #### CBC ####[facility] Kbmbufzchb445[address] [place], [place] [address]Dr. Airam ChangRBC3.40 106/ulCritically low4.20-5.40The [facility] HospitalComment on above:Performed By: #### CBC ####[facility] Rwwwdmsoor[address] [place] [address].Airam ChangWBC8.2 103/ulNormal4.0-11.0The [facility] HospitalComment on above:Performed By: #### CBC ####[facility] [address]epkthyyj[address] [place] [address]Dr.Airam TripathiCovid-19 PCR (CVDTBH)on 73-55-0939AGYM-CoV-2 (COVID-19) RNA MIKE+probe Ql (Unsp spec)Not detectedNormalNOT DETECTEDThe [facility] HospitalComment on above:Result Comment: When diagnostic testing is [...] for this test is supported by the [place] of Health and Human Service's declaration that [...] no longer be used).Performed By: #### CVDTBH ####[facility] Fdhgaegced[address] [place] [address]Dr. Airam ChangLACTATE/LACTIC ACIDon 88-79-6019Pvdipss [Moles/Vol]0.4 mmol/LNormal0.4-2.0The [facility] HospitalComment on above:Performed By: #### LACT ####[facility] Wctihvwqwn3717[address] [place], [place] [address]Dr. Airam ChangPOTASSIUMon 74-29-5271Rjlmjtckv [Moles/Vol]6.3 mmol/LCritically high 3.5-5.1The [facility] HospitalComment on above:Performed By: #### HSTROPN, TSH, K, BNP ####[facility] Gkxrvoddck[address] [place] [id number]. Yilan ChangPROF 14(COMP METB)on 79-18-5364Qmmovmx [Mass/Vol]3.5 g/dL Normal3.4-5.0The [facility] HospitalComment on above:Performed By: #### CMP ####[facility] Egatzsuaue[address] [place] [address]Dr. Yilan ChangAlbumin/Globulin [Mass ratio]1.1 {ratio}NormalThe [facility] Comment on above:Performed By: #### CMP ####[facility] Bpvetodlpy038[address] [place], [place] [address]Dr.Yilan ChangALP [Catalytic activity/Vol] 113 U/FPlilii83-018Ftj [facility] HospitalComment on above:Performed By: #### CMP ####[facility] Pocxtdduvw[address] [place] [address]Dr. Yilan ChangALT [Catalytic activity/Vol]26 U/SOgbecj34-75Wws [facility] Comment on above:Performed By: #### CMP ####[facility] Zbiwztegaj308[address] [place], [place] [address]Dr.Yilan ChangAnion gap [Moles/Vol]11.5 mmol/LNormalThe [facility] HospitalComment on above:Performed By: #### CMP ####[facility] Chadyfvhmw263[address] [place], [place] [address]Dr. Yilan ChangAST [Catalytic activity/Vol]24 U/SCcxowl70-51Ekz [facility] Comment on above:Performed By: #### CMP ####[facility] Obsswkzmsl[address] [place], [place] [address]Dr.Yilan ChangBilirubin [Mass/Vol]0.3 mg/dL Normal0.2-1.0The [facility] HospitalComment on above:Performed By: #### CMP ####[facility] Abgjzsojic1159[address] [place], [place] [address]Dr. Yilan ChangCalcium [Mass/Vol]8.9 mg/dLNormal8.5-10.1The [facility] HospitalComment on above:Performed By: #### CMP ####[facility] Boskzmfgxx[address] [place] [address]Dr.Yilan ChangChloride [Moles/Vol]103 mmol/LNormal 98-107The [facility] HospitalComment on above:Performed By: #### CMP ####[facility] Mzwskcbiwd996[address] [place], [place] [address]Dr.Yilan ChangCO2 [Moles/Vol]27.8 mmol/TBkmrpg12.0-32.0The [facility] HospitalComment on above: Performed By: #### CMP ####[facility] Cekazodjsb874[address] [place], [place] [address]Dr.Yilan ChangCreatinine [Mass/Vol]1.28 mg/dL Critically high0.55-1.02The [facility] HospitalComment on above:Performed By: #### CMP ####[facility] Fqfvzhvsxq2524[address] [place], [place] [address]Dr.Yilan ChangEGFR-AF WTRVGSAI35 mL/min/1.78y9Ennrwmkguv low>=60The [facility] HospitalComment on above:Performed By: #### CMP ####[facility] Yclnnqgbdd032[address] [place], [place] [address]Dr.Yilan ChangEGFR-NON AF AAOLCYYW31 mL/min/1.63i1Ipaxtbleai low>=60The [facility] Centerment on above: Performed By: #### CMP ####[facility] Cslijonunc058[address] [place], [place] [address]Dr.Yilan ChangGlobulin (S) [Mass/Vol]3.2 g/dLNormalThe [facility] HospitalComment on above:Performed By: #### CMP ####[facility] Bhhxiczniq2316[address] [place], [place] [address]Dr.Yilan ChangGlucose [Mass/Vol]95 mg/tCOzhybv51-600Eap [facility] HospitalComment on above:Performed By: #### CMP ####[facility] Mojoteddjy6949[address] [place], [place] [address]Dr.Yilan ChangPotassium [Moles/Vol]6.3 mmol/LCritically high3.5-5.1The [facility] HospitalComment on above:Performed By: #### CMP ####[facility] Jdeavsyzvk[address] [place] [address]Dr.Yilan ChangProtein [Mass/Vol]6.7 g/dLNormal6.4-8.2The [facility] HospitalComment on above:Performed By: #### CMP ####[facility] Ysesijgfnu596[address] [place], [place] [address]Dr.Yilan ChangSodium [Moles/Vol]135 mmol/LCritically zys858-305Ynj [facility] HospitalComment on above:Performed By: #### CMP ####[facility] Vylkpqyvcc982[address] [place], [place] [address]Dr.Yilan ChangUrea nitrogen [Mass/Vol]42.0 mg/dLCritically high7.0-18.0The [facility] HospitalComment on above:Performed By: #### CMP ####[facility] Yvvdacfvvq977[address] [place], [place] [address]Dr.Yilan ChangUrea nitrogen/Creatinine [Mass ratio] 32.8 mg/mgNormalThe [facility] HospitalComment on above:Performed By: #### CMP ####[facility] Icueqjlwah586[address] [place], [place] [address]Dr. Airam TripathiTROPONIN, HIGH SENSITIVITYon 61-63-6498UIITKB4.1 pg/mLNormal4.0-51.[address] [facility] HospitalCommclaren flint on above:Result Comment: CUT-OFF POINTS HAVE BEEN ESTABLISHED BASED ON THE FOURTH UNIVERSAL DEFINITIONS OF MYOCARDIALINFARCTION. THE UPPER REFERENCE LIMIT (URL) OF TROPONIN, DEFINED THE 99TH PERCENTILE OFcT nI DISTRIBUTION IN A REFERENCE POPULATION, HAS BEEN CONFIRMED THE DECISION THRESHOLDFOR NH DIAGNOSIS.Performed By: #### HSTROPN, TSH, K, BNP ####[facility] Vmwwpfrngs[address] [place], [place] [address]Dr. Selenaneil TripathiTSHon 01-69-6106WEO9.028 uIU/mLCritically low0.358-3.740The [facility] HospitalComment on above:Performed By: #### HSTROPN, TSH, K, BNP ####[facility] Hzrgahorre[address] [place] [address]Dr. Airam TripathiUA RANDOMon 13-39-6984Yjpvrumqh Ql (U)NegativeNormalNEGATIVEMain Campus Medical Center HospitalComment on above:Performed By: #### UA ####[facility] Xzvnipfspa4[address] [place] [address]Dr. Yilan ChangClarity (U)CLEARNormalCLEARThe [facility] HospitalComment on above:Performed By: #### UA ####[facility] Cdhwfebnzj003[address] [place], [place] [address]Dr. Yilan ChangColor (U)LT. YELLOWNormalYELLOWMain Campus Medical Center HospitalComment on above:Performed By: #### UA ####[facility] Gydchyepwl595[address] [place], [place] [address]Dr. Y grayson ChangGlucose Ql (U)NegativeNormalNEGATIVEMain Campus Medical Center HospitalComment on above:Performed By: #### UA ####[facility] Mhoedjaqmu070[address] [place], [place] [address]Dr. Yilan ChangHemoglobin Ql (U)NegativeNormalNEGATIVE The [facility] HospitalComment on above:Performed By: #### UA ####[facility] Barscljksu800[address] [place], [place] [address]Dr. Yilan Tripathi Ketones Ql (U)NegativeNormalNEGATIVEMain Campus Medical Center HospitalComment on above: Performed By: #### UA ####[facility] Xlocxkunms919[address] [place], [place] [address]Dr. Yilan ChangLEUKOCYTESTRACEAbnormalNEGATIVEMain Campus Medical Center HospitalComment on above:Performed By: #### UA ####[facility] Chdzslbftd480[address] [place], [place] [address]Dr. Yilan ChangNitrite Ql (U) NegativeNormalNEGATIVEMain Campus Medical Center HospitalComment on above:Performed By: #### UA ####[facility] Jhknhsakkn4716[address] [place], [place] [address]Dr. Yilan ChangpH (U)5.5 [pH]Normal5-9The [facility] HospitalComment on above: Performed By: #### UA ####[facility] Bpvbmtxprn316[address] [place], [place] [address]Dr. Airam TripathiSPEC GRAVITY1.757Grmtfb6.005-<=1.025The [facility] HospitalComment on above:Performed By: #### UA ####[facility] Gzjntlnzmb790[address] [place], [place] [address]Dr. Airam ChangUA PROTEIN NegativeNormalNEGATIVE/ TRACEThe [facility] HospitalComment on above:Performed By: #### UA ####[facility] Onzycczvyj044[address] [place], [place] [address]Dr. Airam ChangUrobilinogen Qn (U)0.2 {Ligia'U}/dLNormal0.2 - 1.0The [facility] HospitalComment on above:Performed By: #### UA ####[facility] Clbkwiuyii993[address] [place], [place] [address]Dr. Airam ChangURIC ACID SERUMon 72-56-5186Pbejb [Mass/Vol]6.9 mg/dLCritically high2.6-6.0The [facility] HospitalComment on above:Performed By: #### URIC ####[facility] Uhzqxspoao16[address] [place], [place] [address]Dr. Airam TripathiURINE T PROTEIN CREAT RATIOon 14-99-0136MI TOTAL PROTEIN<6.0Normal<=12.0The [facility] HospitalComment on above:Performed By: #### URTPCR ####[facility] Frkddqvyfj886[address] [place], [place] [address]Dr. Selenalan ChangURINE CREAT 15.12 mg/dLCritically low20.00-300.00The [facility] HospitalComment on above: Performed By: #### URTPCR ####[facility] Yosjoutenn280[address] [place], [place] [address]Dr. Selenalan ChangVITAMIN D 25 OHon 54-19-6177ZEN D 25-OH 75.9 ng/mLNormalThe [facility] HospitalComment on above:Performed By: #### VITAD ####[facility] Ftkpltqmdx90000[address] [place], [place] [address]Dr. Airam Maria RANGESSEE BELOWMarion HospitalComment on above: Result Comment: <20 ng/mL Vit D deficient 20 - <30 ng/mL Vit D insufficient 30 - 100 ng/mL Vit D sufficient >100 ng/mL Potential ToxicityPerformed By: #### VITAD ####[facility] Chldvmvciy3939[address] [place], [place] [address]Dr. Airam TripathiOSMOLALITYon 01-39-2281Bwuydimwct [Osmolality]272 mosm/kg Critically jqc598-589Ceg [facility] HospitalComment on above:Performed By: #### OSMO ####[facility] Qmvuxnxfbc788504 [address] [place], [place] [address]Dr. Airam TripathiCBC AUTO DIFFon 43-42-7120VAJM #0.0 103/ulNormal0.0-0.1[facility] SystemComment on above:Performed By: #### CBC ####[facility] Cffqkklnuw186[address] [place], [place] [address]Dr.Airam TripathiBasophils/100 WBC (Bld)0.5 %Normal0.2-2.0The [facility] HospitalComment on above:Performed By: #### CBC ####[facility] Eujtawsvli614[address] [place], [place] [address]Dr.Airam ChangEO #0.2 103/ulNormal0.0-0.7The [facility] HospitalCommclaren flint on above:Performed By: #### CBC ####[facility] Pzvksxvqmt890[address] [place], [place] [address]Dr.Airam ChangEosinophils/100 WBC (Bld)2.4 %Normal 0.9-7.0The [facility] HospitalComment on above:Performed By: #### CBC ####[facility] Vqvqgvsbgo194[address] [place], [place] [address]Dr.Airam Tripathi Erythrocyte distribution width (RBC) [Ratio]14.8 %Zrppmc40.0-15.0The [facility] HospitalComment on above:Performed By: #### CBC ####[facility] Fbpqhbmgkb358[address] [place], [place] [address]Dr.Selenaneil DeuceHematocrit (Bld) [Volume fraction]32.6 %Critically low36.0-48.0The [facility] HospitalComment on above:Performed By: #### CBC ####[facility] Bpzlbzbljj468[address] [place], [place] [address]Dr.Airam ChangHemoglobin (Bld) [Mass/Vol]10.1 g/dL Critically low12.0-16.0The [facility] HospitalComment on above:Performed By: #### CBC ####[facility] Utdpdgefqp505[address] [place], [place] [address]Dr. Selenalan ChangIG #0.05 10e3/ulCritically high0.00-0.03The [facility] HospitalComment on above:Performed By: #### CBC ####[facility] Jhczyekdkh35[address] [place], [place] [address]Dr.Airam ChangIG %0.7 %Critically high0.0-0.5The [facility] HospitalComment on above:Performed By: #### CBC ####[facility] Kjjcsbikno94[address] [place], [place] [address]Dr.Airam ChangLYMPH #1.9 103/ulNormal1.2-3.8The [facility] HospitalComment on above:Performed By: #### CBC ####[facility] Qokzgchgmq4314[address] [place], [place] [address]Dr. Airam TripathiLymphocytes/100 WBC (Bld)24.7 %Ssoqud64.5-60.0The [facility] Comment on above:Performed By: #### CBC ####[facility] Ffzahdfqbu4639[address] [place], [place] [address]Dr.Airam ChangMANUAL DIFF REQNONormalThe [facility] HospitalComment on above:Performed By: #### CBC ####[facility] Kywgmafxob06[address] [place], [place] [address]Dr.Airam TripathiMCH (RBC) [Entitic mass]28.0 yzJoylbb01.7-34.0The [facility] HospitalComment on above: Performed By: #### CBC ####[facility] Rmwbuimduw[address] [place] [address]Dr.Airam DeuceMCHC (RBC) [Mass/Vol]31.0 g/dLNormal 29.9-35.2The [facility] HospitalComment on above:Performed By: #### CBC ####[facility] Fqfyxguurk75[address] [place] [address]Dr. Airam DeuceMCV (RBC) [Entitic vol]90.3 uBRdjhxq89.0-99.0The [facility] Comment on above:Performed By: #### CBC ####[facility] Vrgeqsqlez409[address] [place], [place] [address]Dr.Selenaneil TripathiMONO #0.5 103/ulNormal0.3-0.[address] [facility] HospitalComment on above:Performed By: #### CBC ####[facility] Wrnmercsac035[address] [place], [place] [address]Dr.Selenaneil Tripathi Monocytes/100 WBC (Bld)6.0 %Normal1.7-12.0The [facility] HospitalComment on above: Performed By: #### CBC ####[facility] Bbnbxcnkmv[address] [place], [place] [address]Dr.Airam TripathiNEUT #5.0 103/ulNormal1.4-6.5The [facility] HospitalComment on above:Performed By: #### CBC ####[facility] Vsprblmojw[address] [place], [place] [address]Dr.Airam DeuceNeutrophils/100 WBC (Bld)65.7 %Hcyirk16.0-75.0The [facility] HospitalComment on above:Performed By: #### CBC ####[facility] Duoylzmbgv[address] [place], [place] [address]Dr.Selenaneil TripathiPlatelet mean volume (Bld) [Entitic vol]9.5 fLNormal9.5-13.[address] [facility] HospitalComment on above:Performed By: #### CBC ####[facility] Kyzhfmsucj9[address] [place], [place] [address]Dr.Airam TripathiPLT307 103/epTikqtc582-700Was [facility] HospitalComment on above:Performed By: #### CBC ####[facility] Mizhfsxyvc[address] [place] [address]Dr. Airam TripathiRBC3.61 106/ulCritically low4.20-5.40The [facility] HospitalComment on above:Performed By: #### CBC ####[facility] Nspkcuprap94[address] [place] [address]Dr.Airam ChangWBC7.5 103/ulNormal4.0-11.0The [facility] HospitalComment on above:Performed By: #### CBC ####[facility] Zdeksmtasx[address] [place] [address]Dr.Airam TripathiPROF 14(COMP METB)on 78-50-5462Hoyyrni [Mass/Vol]3.5 g/dLNormal3.4-5.0[facility] Comment on above:Performed By: #### CMP ####[facility] [facility] Xkmnpwthnw[address] [place], [place] [address]Dr.Airam ChangAlbumin/Globulin [Mass ratio] 1.1 {ratio}NormalThe [facility] Charles HospitalComment on above:Performed By: #### CMP ####[facility] Ptjswlbrll[address] [place], [place] [address]Dr. Airam TripathiALP [Catalytic activity/Vol]126 U/LCritically hsxu26-710Ozh [facility] HospitalComment on above:Performed By: #### CMP ####[facility] Otgamazfoj[address] [place], [place] [address]Dr.Airam ChangALT [Catalytic activity/Vol]18 U/ASbhtgr25-61Ojz [facility] HospitalComment on above:Performed By: #### CMP ####[facility] Zwmrddeuej006[address] [place], [place] [address]Dr.Airam TripathiAnion gap [Moles/Vol]11.1 mmol/LNormalThe [facility] Comment on above:Performed By: #### CMP ####[facility] Etzmgmfpic453[address] [place], [place] [address]Dr.Airam ChangAST [Catalytic activity/Vol]26 U/RUjrunl26-58Wfu [facility] HospitalComment on above:Performed By: #### CMP ####[facility] Gzsequdrxt3[address] [place], [place] [address]Dr. Yilan ChangBilirubin [Mass/Vol]0.3 mg/dLNormal0.2-1.0The [facility] Comment on above:Performed By: #### CMP ####[facility] Wyqhnjeqox247[address] [place], [place] [address]Dr.Yilan ChangCalcium [Mass/Vol]8.5 mg/dL Normal8.5-10.1The [facility] HospitalComment on above:Performed By: #### CMP ####[facility] Kvhbldnzry[address] [place], [place] [address]Dr. Yilan ChangChloride [Moles/Vol]98 mmol/PSfftkg13-263Gko [facility] HospitalComment on above:Performed By: #### CMP ####[facility] Nbkypayvvz344[address] [place], [place] [address]Dr.Yilan ChangCO2 [Moles/Vol]23.9 mmol/LNormal 21.0-32.0The [facility] HospitalComment on above:Performed By: #### CMP ####[facility] Zczcqopjvn8[address] [place], [place] [address]Dr. Yilan ChangCreatinine [Mass/Vol]1.40 mg/dLCritically high0.55-1.02The [facility] HospitalComment on above:Performed By: #### CMP ####[facility] Biodntfjvg826[address] [place], [place] [address]Dr.Yilan ChangEGFR-AF BHSCAXAC66 mL/min/1.50f1Twoonqewla low>=60The [facility] HospitalComment on above: Performed By: #### CMP ####[facility] Nvclsczihv[address] [place], [place] [address]Dr.Yilan ChangEGFR-NON AF LARROYGB01 mL/min/1.73m2 Critically low>=60The [facility] HospitalComment on above:Performed By: #### CMP ####[facility] Dzcpptynwy175[address] [place], [place] [address]Dr. Yilan ChangGlobulin (S) [Mass/Vol]3.3 g/dLNoCleveland Clinic Fairview HospitalComment on above:Performed By: #### CMP ####[facility] Riywksxhag376[address] [place], [place] [address]Dr.Selenaneil ChangGlucose [Mass/Vol]72 mg/dLCritically low 74-106The [facility] HospitalComment on above:Performed By: #### CMP ####[facility] Cmsxvtjyhy5[address] [place], [place] [address]Dr.Selenaneil Tripathi Potassium [Moles/Vol]5.0 mmol/LNormal3.5-5.1The [facility] HospitalComment on above:Performed By: #### CMP ####[facility] Sphaipvoxf[address] [place], [place] [address]Dr.Selenaneil ChangProtein [Mass/Vol]6.8 g/dLNormal6.4-8.[address] [facility] HospitalComment on above:Performed By: #### CMP ####[facility] Kjsvfjqsno703[address] [place], [place] [address]Dr.Airam ChangSodium [Moles/Vol]128 mmol/LCritically sjx899-833Dzu [facility] HospitalComment on above:Performed By: #### CMP ####[facility] Hopqeyxbon5225[address] [place], [place] [address]Dr.Selenaneil ChangUrea nitrogen [Mass/Vol]27.0 mg/dL Critically high7.0-18.0The [facility] HospitalComment on above:Performed By: #### CMP ####[facility] Xfpawimmfg[address] [place], [place] [address]Dr. Selenalan ChangUrea nitrogen/Creatinine [Mass ratio]19.3 mg/mgNoCleveland Clinic Fairview HospitalComment on above:Performed By: #### CMP ####[facility] Pfdoyjegyr[address] [place], [place] [address]Dr.Airam ChangOSMOLALITYon 54-09-4669Uhztlyfsgr [Osmolality]275 mosm/fgXtapwn142-877Exd [facility] Comment on above:Performed By: #### OSMO ####[facility] Jkuizbhdfw[address] [place] [address]Dr. Airam TripathiCBC AUTO DIFFon 09-08-2022 BASO #0.0 103/ulNormal0.0-0.1The [facility] HospitalComment on above:Performed By: #### CBC ####[facility] Mvvjwubbaw867[address] [place], [place] [address]Dr.Selenalan ChangBasophils/100 WBC (Bld)0.5 %Normal0.2-2.0The [facility] HospitalComment on above:Performed By: #### CBC ####[facility] Kqqjzffxmq4914[address] [place], [place] [address]Dr.Selenalan ChangEO #0.1 103/ul Normal0.0-0.7The [facility] HospitalComment on above:Performed By: #### CBC ####[facility] Izlyacwfql[address] [place], [place] [address]Dr. Airam ChangEosinophils/100 WBC (Bld)1.7 %Normal0.9-7.0The [facility] Comment on above:Performed By: #### CBC ####[facility] Vpywfpkoiu288[address] [place], [place] [address]Dr.Airam ChangErythrocyte distribution width (RBC) [Ratio]14.7 %Nttlvo27.0-15.0The [facility] HospitalComment on above: Performed By: #### CBC ####[facility] Eibkcrcokv5149[address] [place], [place] [address]Dr.Airam ChangHematocrit (Bld) [Volume fraction]30.3 % Critically low36.0-48.0The [facility] HospitalComment on above:Performed By: #### CBC ####[facility] Vwzqtxluji2325[address] [place], [place] [address]Dr. Airam ChangHemoglobin (Bld) [Mass/Vol]9.3 g/dLCritically low12.0-16.0The [facility] HospitalComment on above:Performed By: #### CBC ####[facility] Zraoszuiuk[address] [place], [place] [address]Dr.Selenalan ChangIG #0.03 10e3/ulNormal0.00-0.03The [facility] HospitalComment on above:Performed By: #### CBC ####[facility] Pjfalwpbsc[address] [place] [address]Dr. Airam TripathiIG %0.5 %Normal0.0-0.5The [facility] HospitalComment on above:Performed By: #### CBC ####[facility] Pnxunxtqcr3299[address] [place], [place] [address]Dr.Airam TripathiLYMPH #0.9 103/ulCritically low1.2-3.8The [facility] HospitalComment on above:Performed By: #### CBC ####[facility] Nabzduukpd7824[address] [place], [place] [address]Dr.Airam TripathiLymphocytes/100 WBC (Bld)13.6 %Critically low20.5-60.0The [facility] HospitalComment on above: Performed By: #### CBC ####[facility] Hgttjgcgpb4101[address] [place], [place] [address]Dr.Airam TripathiMANUAL DIFF REQNONormalThe [facility] HospitalComment on above:Performed By: #### CBC ####[facility] Biohcwzqgx44360[address] [place], [place] [address]Dr.Airam TripathiH (RBC) [Entitic mass]27.4 nsWhlcdi39.7-34.0The [facility] HospitalComment on above: Performed By: #### CBC ####[facility] Ekhsltwvxh278[address] [place], [place] [address]Dr.Airam TripatihHC (RBC) [Mass/Vol]30.7 g/dLNormal 29.9-35.2The [facility] HospitalComment on above:Performed By: #### CBC ####[facility] Htsmsifpaa9[address] [place], [place] [address]Dr. Airam TripathiV (RBC) [Entitic vol]89.4 vMGdhvar76.0-99.0[facility] Comment on above:Performed By: #### CBC ####[facility] Dadkvxklzl3779[address] [place], [place] [address]Dr.Airam TripathiMONO #0.5 103/ulNormal0.3-0.[address] [facility] HospitalComment on above:Performed By: #### CBC ####[facility] Hltsijpqwq939[address] [place], [place] [address]Dr.Airam Tripathi Monocytes/100 WBC (Bld)8.0 %Normal1.7-12.0The [facility] HospitalComment on above: Performed By: #### CBC ####[facility] Lcbjdibzob239[address] [place], [place] [address]Dr.Airam ChangNEUT #5.0 103/ulNormal1.4-6.5The [facility]Comment on above:Performed By: #### CBC ####[facility] Ipcrirxjhi[address] [place], [place] [address]Dr.Airam TripathiNeutrophils/100 WBC (Bld)75.7 %Critically high43.0-75.0The [facility] HospitalComment on above: Performed By: #### CBC ####[facility] Qzcgejppcw350[address] [place], [place] [address]Dr.Airam TripathiPlatelet mean volume (Bld) [Entitic vol] 10.4 fLNormal9.5-13.5The [facility] HospitalComment on above:Performed By: #### CBC ####[facility] Nsxjxthwjq824[address] [place], [place] [address]Dr. Airam IlaykCOO182 103/orUykrrr395-239Rxg [facility] HospitalComment on above: Performed By: #### CBC ####[facility] Nsjkwxwunt750[address] [place], [place] [address]Dr.Airam ChangRBC3.39 106/ulCritically low4.20-5.40The [facility] HospitalComment on above:Performed By: #### CBC ####[facility] Cjuidycvie868[address] [place], [place] [address]Dr.Airam ChangWBC6.5 103/ul Normal4.0-11.0The [facility] HospitalComment on above:Performed By: #### CBC ####[facility] Civpwnejlt[address] [place], [place] [address]Dr. Yilan ChangPROF 14(COMP METB)on 11-49-0015Nowfriw [Mass/Vol]3.1 g/dLCritically low3.4-5.0The [facility] HospitalComment on above:Performed By: #### CMP ####[facility] Yperzobaiz[address] [place] [address]Dr. Yilan ChangAlbumin/Globulin [Mass ratio]1.0 {ratio}NormalThe [facility] Comment on above:Performed By: #### CMP ####[facility] Snodfwzdgc[address] [place] [address]Dr.Yilan ChangALP [Catalytic activity/Vol] 126 U/LCritically pqle37-470Mvu [facility] HospitalComment on above:Performed By: #### CMP ####[facility] Guiixzunpo8249[address] [place], [place] [address]Dr.Yilan ChangALT [Catalytic activity/Vol]18 U/USjozkt63-19Abi [facility] HospitalComment on above:Performed By: #### CMP ####[facility] Apdzqopkta176[address] [place], [place] [address]Dr.Yilan ChangAnion gap [Moles/Vol]11.4 mmol/LNormalThe [facility] HospitalComment on above:Performed By: #### CMP ####[facility] Bzjlfdjjec367[address] [place], [place] [address]Dr.Yilan ChangAST [Catalytic activity/Vol]25 U/GOuxlpb47-69Iid [facility] HospitalComment on above:Performed By: #### CMP ####[facility] Fqgbcewibk746[address] [place], [place] [address]Dr.Yilan ChangBilirubin [Mass/Vol]0.3 mg/dLNormal0.2-1.0The [facility] HospitalComment on above:Performed By: #### CMP ####[facility] Rercqlqonz27[address] [place], [place] [address]Dr.Yilan ChangCalcium [Mass/Vol]8.6 mg/dLNormal8.5-10.1The [facility] HospitalComment on above:Performed By: #### CMP ####[facility] Sxwuupoidk239[address] [place], [place] [address]Dr.Yilan ChangChloride [Moles/Vol]97 mmol/LCritically trt20-609Liv [facility] HospitalComment on above: Performed By: #### CMP ####[facility] Qwsluxotul[address] [place], [place] [address]Dr.Yilan ChangCO2 [Moles/Vol]26.1 mmol/LNormal 21.0-32.0The [facility] HospitalComment on above:Performed By: #### CMP ####[facility] Zibgtkifhv24350[address] [place], [place] [address]Dr. Yilan ChangCreatinine [Mass/Vol]1.07 mg/dLCritically high0.55-1.02The [facility] HospitalComment on above:Performed By: #### CMP ####[facility] Qzwvcxtgur328[address] [place], [place] [address]Dr.Yilan ChangEGFR-AF CUBAN>60Normal>=60The [facility] HospitalComment on above:Performed By: #### CMP ####[facility] Wtohlmvqoo27[address] [place], [place] [address]Dr. Yilan ChangEGFR-NON AF IILYURLZ86 mL/min/1.88a2Hkoabtvfev low>=60The [facility] HospitalComment on above:Performed By: #### CMP ####[facility] Jyjqdfhyes[address] [place], [place] [address]Dr.Yilan ChangGlobulin (S) [Mass/Vol]3.2 g/dLNormalThe [facility] HospitalComment on above:Performed By: #### CMP ####[facility] Oywccypavi390[address] [place], [place] [address]Dr.Yilan ChangGlucose [Mass/Vol]83 mg/dUSonsrr21-098Abo [facility] Comment on above:Performed By: #### CMP ####[facility] Yduwxnhhcb312[address] [place], [place] [address]Dr.Yilan ChangPotassium [Moles/Vol]5.5 mmol/LCritically high3.5-5.1The [facility] HospitalComment on above:Performed By: #### CMP ####[facility] Dkamcoolgr[address] [place] [address]Dr.Airam ChangProtein [Mass/Vol]6.3 g/dLCritically low6.4-8.2The [facility] HospitalComment on above:Performed By: #### CMP ####[facility] Udbjaymsdh808[address] [place], [place] [address]Dr.Selenalan ChangSodium [Moles/Vol]129 mmol/LCritically obp959-926Tja [facility] HospitalComment on above: Performed By: #### CMP ####[facility] Kszbqktgpo619[address] [place], [place] [address]Dr.Selenalan ChangUrea nitrogen [Mass/Vol]37.0 mg/dL Critically high7.0-18.0The [facility] HospitalComment on above:Performed By: #### CMP ####[facility] Tbzeejaism315[address] [place], [place] [address]Dr. Selenalan ChangUrea nitrogen/Creatinine [Mass ratio]34.6 mg/mgNormalThe [facility] HospitalComment on above:Performed By: #### CMP ####[facility] Hrrmlcwtxw76[address] [place], [place] [address]Dr.Airam ChangOSMOLALITYon 42-53-3225Gjkyydxaxl [Osmolality]279 mosm/wiJssycz460-711Qtc [facility] Comment on above:Performed By: #### OSMO ####[facility] Vzaroeicee[address] [place], [place] [address]Dr. Airam TripathiCBC AUTO DIFFon 08-31-2022 BASO #0.0 103/ulNormal0.0-0.1The [facility] Centerment on above:Performed By: #### CBC ####[facility] Neqexinpgo2918[address] [place], [place] [address]Dr.Airam ChangBasophils/100 WBC (Bld)0.4 %Normal0.2-2.0The [facility] HospitalComment on above:Performed By: #### CBC ####[facility] Mzoatuvtqk2359[address] [place], [place] [address]Dr.Selenalan ChangEO #0.2 103/ul Normal0.0-0.7The [facility] HospitalComment on above:Performed By: #### CBC ####[facility] Naikhchndh84[address] [place], [place] [address]Dr. Airam ChangEosinophils/100 WBC (Bld)3.2 %Normal0.9-7.0The [facility] Comment on above:Performed By: #### CBC ####[facility] Zjmdhqftjz32[address] [place], [place] [address]Dr.Airam ChangErythrocyte distribution width (RBC) [Ratio]14.4 %Ttuwol58.0-15.0The [facility]Comment on above: Performed By: #### CBC ####[facility] Wswhkxikjx9513[address] [place], [place] [address]Dr.Airam ChangHematocrit (Bld) [Volume fraction]27.8 % Critically low36.0-48.0The [facility] HospitalComment on above:Performed By: #### CBC ####[facility] Iehoxmysyc484[address] [place], [place] [address]Dr. Airam ChangHemoglobin (Bld) [Mass/Vol]8.7 g/dLCritically low12.0-16.0The [facility] HospitalComment on above:Performed By: #### CBC ####[facility] Hkmazhwaoe7[address] [place], [place] [address]Dr.Airam ChangIG #0.05 10e3/ulCritically high0.00-0.03The [facility] HospitalComment on above:Performed By: #### CBC ####[facility] Qonlucqubm367[address] [place], [place] [address]Dr.Airam ChangIG %0.7 %Critically high0.0-0.5The [facility]Comment on above:Performed By: #### CBC ####[facility] Crcyottgjm8737[address] [place], [place] [address]Dr.Selenalan ChangLYMPH #1.7 103/ulNormal1.2-3.8The [facility] HospitalComment on above:Performed By: #### CBC ####[facility] Jhaplnmgls225[address] [place], [place] [address]Dr.Airam TripathiLymphocytes/100 WBC (Bld)23.6 %Itwzsk82.5-60.0The [facility] HospitalComment on above:Performed By: #### CBC ####[facility] [address]nrjkajr[address] [place] [address]Dr.Airam TripathiMANUAL DIFF REQNONormalThe [facility] HospitalComment on above:Performed By: #### CBC ####[facility] Svpewzylkj386[address] [place], [place] [address]Dr.Airam TripathiH (RBC) [Entitic mass]27.8 pgNormal 26.7-34.0The [facility] HospitalComment on above:Performed By: #### CBC ####[facility] Ujobormlem689[address] [place], [place] [address]Dr. Airam TripathiHC (RBC) [Mass/Vol]31.3 g/zFKukqvi04.9-35.2The [facility] Comment on above:Performed By: #### CBC ####[facility] Wlftnjeyup[address] [place], [place] [address]Dr.Airam TripathiV (RBC) [Entitic vol]88.8 fL Ehewbc76.0-99.0The [facility] HospitalComment on above:Performed By: #### CBC ####[facility] Zzodfhnhsw630[address] [place], [place] [address]Dr. Airam TripathiMONO #0.5 103/ulNormal0.3-0.8The [facility] HospitalComment on above: Performed By: #### CBC ####[facility] Rsyvfaebfq228[address] [place], [place] [address]Dr.Airam TripathiMonocytes/100 WBC (Bld)6.9 %Normal 1.7-12.0The [facility] HospitalComment on above:Performed By: #### CBC ####[facility] Yoxdlihiop826[address] [place], [place] [address]Dr. Airam TripathiNEUT #4.7 103/ulNormal1.4-6.5The [facility] HospitalComment on above: Performed By: #### CBC ####[facility] Eievhoxave[address] [place] [address]Dr.Airam TripathiNeutrophils/100 WBC (Bld)65.2 %Normal 43.0-75.0The [facility] HospitalComment on above:Performed By: #### CBC ####[facility] Cgrpmmksch[address] [place], [place] [address]Dr. Selenaneil DeucePlatelet mean volume (Bld) [Entitic vol]9.8 fLNormal9.5-13.5The [facility] HospitalComment on above:Performed By: #### CBC ####[facility] Esbpcmyhjz9419[address] [place], [place] [address]Dr.Selenaneil TripathiTgvfqLII139 103/ul Ljzsqm689-295Vos [facility] HospitalComment on above:Performed By: #### CBC ####[facility] Wacbivckgu924[address] [place], [place] [address]Dr. Airam TripathiRBC3.13 106/ulCritically low4.20-5.40The [facility] HospitalComment on above:Performed By: #### CBC ####[facility] Suzwarnzdk05[address] [place], [place] [address]Dr.Selenaneil TripathiWBC7.3 103/ulNormal4.0-11.0The [facility] HospitalComment on above:Performed By: #### CBC ####[facility] Xbfgqjuviv446[address] [place], [place] [address]Dr.Airam TripathiPROF 14(COMP METB)on 16-19-3656Lbfbsag [Mass/Vol]3.0 g/dLCritically low3.4-5.0The [facility] HospitalComment on above:Performed By: #### CMP ####[facility] Yhxaqmpbii997[address] [place], [place] [address]Dr.Airam Tripathi Albumin/Globulin [Mass ratio]1.1 {ratio}NormalThe [facility] on above:Performed By: #### CMP ####[facility] Vsyftpgihq156[address] [place], [place] [address]Dr.Airam TripathiALP [Catalytic activity/Vol]132 U/L Critically ibet21-347Ywd [facility] HospitalComment on above:Performed By: #### CMP ####[facility] Lvnlcqzqyz[address] [place] [id number]. Yilan ChangALT [Catalytic activity/Vol]20 U/AVfxxti73-68Hyz [facility] Comment on above:Performed By: #### CMP ####[facility] Snpntkemwr7938 [place] [id number].Yilan ChangAnion gap [Moles/Vol]9.5 mmol/LNormalThe [facility] HospitalComment on above:Performed By: #### CMP ####[facility] Uxmzmmifix[address] [place], [place] [address]Dr. Yilan ChangAST [Catalytic activity/Vol]25 U/ZFjkuon75-39Guw [facility] Comment on above:Performed By: #### CMP ####[facility] Zbwnajheaq09[address] [place] [address]Dr.Yilan ChangBilirubin [Mass/Vol]0.2 mg/dL Normal0.2-1.0The [facility] HospitalComment on above:Performed By: #### CMP ####[facility] Snaafnwjqq69[address] [place], [place] [address]Dr. Yilan ChangCalcium [Mass/Vol]7.9 mg/dLCritically low8.5-10.1The [facility] HospitalComment on above:Performed By: #### CMP ####[facility] Wlvwvcgcae606[address] [place], [place] [address]Dr.Yilan ChangChloride [Moles/Vol]97 mmol/LCritically kzu05-420Glt [facility] HospitalComment on above: Performed By: #### CMP ####[facility] Oakzbzxnfd02[address] [place], [place] [address]Dr.Yilan ChangCO2 [Moles/Vol]27.3 mmol/LNormal 21.0-32.0The [facility] HospitalComment on above:Performed By: #### CMP ####[facility] Twxudoucqd432[address] [place], [place] [address]Dr. Yilan ChangCreatinine [Mass/Vol]1.58 mg/dLCritically high0.55-1.02The [facility] HospitalComment on above:Performed By: #### CMP ####[facility] Qeigcqyvka[address] [place] [address]Dr.Yilan ChangEGFR-AF ZFYWAJQJ36 mL/min/1.45u4Pxvdyvipax low>=60The [facility] HospitalComment on above: Performed By: #### CMP ####[facility] Athrbthxxi[address] [place] [address]Dr.Yilan ChangEGFR-NON AF VJYFUPAQ05 mL/min/1.73m2 Critically low>=60The [facility]Comment on above:Performed By: #### CMP ####[facility] Buranzawau[address] [place], [place] [address]Dr. Yilan ChangGlobulin (S) [Mass/Vol]2.8 g/dLNormalThe [facility] HospitalComment on above:Performed By: #### CMP ####[facility] Feevewjrso[address] [place], [place] [address]Dr.Yilan ChangGlucose [Mass/Vol]111 mg/dLCritically mvex81-505Qec [facility] HospitalComment on above:Performed By: #### CMP ####[facility] Qupckndcmb88[address] [place], [place] [address]Dr. Yilan ChangPotassium [Moles/Vol]4.8 mmol/LNormal3.5-5.1The [facility] Comment on above:Performed By: #### CMP ####[facility] Rfcckztwse[address] [place], [place] [address]Dr.Yilan ChangProtein [Mass/Vol]5.8 g/dL Critically low6.4-8.2The [facility] HospitalComment on above:Performed By: #### CMP ####[facility] Kbwpegguwv8[address] [place], [place] [address]Dr. Yilan ChangSodium [Moles/Vol]129 mmol/LCritically yml614-809Twg [facility] HospitalComment on above:Performed By: #### CMP ####[facility] Tmogxpygnk[address] [place], [place] [address]Dr.Yilan ChangUrea nitrogen [Mass/Vol]44.0 mg/dLCritically high7.0-18.0The [facility] HospitalComment on above:Performed By: #### CMP ####[facility] Iqxewqtprn[address] [place], [place] [address]Dr.Selenaneil DeuceUrea nitrogen/Creatinine [Mass ratio] 27.8 mg/mgNormalThe [facility] HospitalCommclaren flint on above:Performed By: #### CMP ####[facility] [facility] Fcjjfrdx[address] [place], [place] [address]Dr. Selenaneil DeuceOSMOLALITYon [id number] [Osmolality]288 mosm/kgNormal 275-295The [facility] HospitalComment on above:Performed By: #### OSMO ####[facility] Tzgizlpggc[address] [place], [place] [address]Dr. Selenaneil DeuceCBC AUTO DIFFon [id number] #0.0 103/ulNormal0.0-0.1The [facility] on above:Performed By: #### CBC ####[facility] Dmtuzwrtle[address] [place], [place] [address]Dr.Airam DeuceBasophils/100 WBC (Bld)0.5 %Normal0.2-2.0The [facility] HospitalCommclaren flint on above:Performed By: #### CBC ####[facility] Pekatpcaxn[address] [place], [place] [address]Dr.Selenalan ChangEO #0.4 103/ulNormal0.0-0.7The [facility] HospitalCommclaren flint on above:Performed By: #### CBC ####[facility] Qxnnwfsgag[address] [place], [place] [address]Dr.Selenaneil ChangEosinophils/100 WBC (Bld)4.8 %Normal 0.9-7.0The [facility] Centerment on above:Performed By: #### CBC ####[facility] Jgygmboxzt7[address] [place], [place] [address]Dr.Selenaneil Tripathi Erythrocyte distribution width (RBC) [Ratio]14.2 %Qpdbcz75.0-15.0The [facility] Centerment on above:Performed By: #### CBC ####[facility] Ksexixhdyl[address] [place], [place] [address]Dr.Airam TripathiHematocrit (Bld) [Volume fraction]31.1 %Critically low36.0-48.0The [facility] HospitalComment on above:Performed By: #### CBC ####[facility] Gmblfekcgl[address] [place], [place] [address]Dr.Airam DeuceHemoglobin (Bld) [Mass/Vol]9.7 g/dL Critically low12.0-16.0The [facility] HospitalComment on above:Performed By: #### CBC ####[facility] Gjccqubsur02[address] [place], [place] [address]Dr. Selenalan ChangIG #0.05 10e3/ulCritically high0.00-0.03The [facility] HospitalComment on above:Performed By: #### CBC ####[facility] Kbpiyzcdbx[address] [place], [place] [address]Dr.Airam ChangIG %0.6 %Critically high0.0-0.5The [facility] HospitalComment on above:Performed By: #### CBC ####[facility] Fubyjtwzru[address] [place], [place] [address]Dr.Airam TripathiLYMPH #1.7 103/ulNormal1.2-3.8The [facility] HospitalComment on above:Performed By: #### CBC ####[facility] Fbucwateoq[address] [place], [place] [address]Dr. Airam TripathiLymphocytes/100 WBC (Bld)19.6 %Critically low20.5-60.0The [facility] HospitalComment on above:Performed By: #### CBC ####[facility] Kdmfdleiwe[address] [place], [place] [address]Dr.Selenaneil TripathiMANUAL DIFF REQ NONormalThe [facility] HospitalComment on above:Performed By: #### CBC ####[facility] Jruuaavnpj[address] [place], [place] [address]Dr. Airam TripathiMCH (RBC) [Entitic mass]28.2 ssImcbgo62.7-34.0The [facility] Comment on above:Performed By: #### CBC ####[facility] [address] [place] [address]Dr.Airam TripathiMCHC (RBC) [Mass/Vol]31.2 g/dL Kxzdkl14.9-35.2The [facility] HospitalComment on above:Performed By: #### CBC ####[facility] Zffxxmcqps[address] [place] [address]Dr. Airam TripathiMCV (RBC) [Entitic vol]90.4 rUCjurjo83.0-99.0The [facility] Comment on above:Performed By: #### CBC ####[facility] Mczlvvfuha[address] [place], [place] [address]Dr.Airam TripathiMONO #0.6 103/ulNormal0.3-0.[address] [facility] HospitalComment on above:Performed By: #### CBC ####[facility] Ajkrfytjda[address] [place], [place] [address]Dr.Airam Tripathi Monocytes/100 WBC (Bld)7.4 %Normal1.7-12.0The [facility] HospitalComment on above: Performed By: #### CBC ####[facility] Qakppregxu675[address] [place], [place] [address]Dr.Airam DeuceNEUT #5.8 103/ulNormal1.4-6.5The [facility] HospitalComment on above:Performed By: #### CBC ####[facility] Ppppiozuko[address] [place], [place] [address]Dr.Airam DeuceNeutrophils/100 WBC (Bld)67.1 %Zzzjug66.0-75.0The [facility] HospitalComment on above:Performed By: #### CBC ####[facility] Jxzpmaxrur[address] [place], [place] [address]Dr.Airam TripathiPlatelet mean volume (Bld) [Entitic vol]9.9 fLNormal9.5-13.5 [facility] SystemComment on above:Performed By: #### CBC ####[facility] Efvrfihohd[address] [place], [place] [address]Dr.Airam TripathiPLT320 103/rwGjupqi424-127Sxv [facility] HospitalComment on above:Performed By: #### CBC ####[facility] Bfwf[address]hlxb[address] [place] [address]Dr. Airam ChangRBC3.44 106/ulCritically low4.20-5.40The [facility] HospitalComment on above:Performed By: #### CBC ####[facility] Kwpiipfwok225[address] [place] [address]Dr.Airam ChangWBC8.6 103/ulNormal4.0-11.0The [facility] HospitalComment on above:Performed By: #### CBC ####[facility] Syqwiwsxmd[address] [place] [address]Dr.Airam TripathiPROF 14(COMP METB)on 80-83-1839Aagxghf [Mass/Vol]3.4 g/dLNormal3.4-5.0[facility] Comment on above:Performed By: #### CMP ####[facility] Deuwuqmcdn9[address] [place], [place] [address]Dr.Airam ChangAlbumin/Globulin [Mass ratio] 1.1 {ratio}NormalThe [facility] HospitalComment on above:Performed By: #### CMP ####[facility] Yahyoulvoc[address] [place], [place] [address]Dr. Airam TripathiALP [Catalytic activity/Vol]170 U/LCritically vdfs70-272Qwg [facility] HospitalComment on above:Performed By: #### CMP ####[facility] Beqibvgtst[address] [place], [place] [address]Dr.Airam ChangALT [Catalytic activity/Vol]22 U/BClythb95-43Ptp [facility] HospitalComment on above:Performed By: #### CMP ####[facility] Vkkppwdfua609[address] [place], [place] [address]Dr.Airam TripathiAnion gap [Moles/Vol]14.4 mmol/LNormalThe [facility] Comment on above:Performed By: #### CMP ####[facility] Ovjwhbmkdk264[address] [place], [place] [address]Dr.Airam ChangAST [Catalytic activity/Vol]25 U/IEgqgko65-86Rda [facility] HospitalComment on above:Performed By: #### CMP ####[facility] Kpiwvdcnsy417[address] [place], [place] [address]Dr. Yilan ChangBilirubin [Mass/Vol]0.3 mg/dLNormal0.2-1.0The [facility] Comment on above:Performed By: #### CMP ####[facility] Qwuttfuhld475[address] [place], [place] [address]Dr.Yilan ChangCalcium [Mass/Vol]8.2 mg/dL Critically low8.5-10.1The [facility] HospitalComment on above:Performed By: #### CMP ####[facility] Yrvtriuxkt[address] [place], [place] [address]Dr. Yilan ChangChloride [Moles/Vol]98 mmol/EGcuior22-745Esb [facility] HospitalComment on above:Performed By: #### CMP ####[facility] Osytyvgeey8524[address] [place], [place] [address]Dr.Yilan ChangCO2 [Moles/Vol]27.8 mmol/LNormal 21.0-32.0The [facility] HospitalComment on above:Performed By: #### CMP ####[facility] Kxatqlwqye050[address] [place], [place] [address]Dr. Yilan ChangCreatinine [Mass/Vol]1.82 mg/dLCritically high0.55-1.02The [facility] HospitalComment on above:Performed By: #### CMP ####[facility] Yrrdpxmkov[address] [place], [place] [address]Dr.Yilan ChangEGFR-AF SCTLAJGQ36 mL/min/1.77z5Havryhqzxy low>=60The [facility] HospitalComment on above: Performed By: #### CMP ####[facility] Ibucdfuvyc[address] [place], [place] [address]Dr.Yilan ChangEGFR-NON AF XWLBTTFP85 mL/min/1.73m2 Critically low>=60The [facility] HospitalComment on above:Performed By: #### CMP ####[facility] Adcbbagpeh[address] [place], [place] [address]Dr. Yilan ChangGlobulin (S) [Mass/Vol]3.2 g/dLNormUC [facility] HospitalComment on above:Performed By: #### CMP ####[facility] Qjdijnyonj234[address] [place], [place] [address]Dr.Airam ChangGlucose [Mass/Vol]78 mg/iAIbndfd92-[address] [facility] HospitalComment on above:Performed By: #### CMP ####[facility] Szmdccvtmk9[address] [place], [place] [address]Dr.Airam Tripathi Potassium [Moles/Vol]5.2 mmol/LCritically high3.5-5.1The [facility] Comment on above:Performed By: #### CMP ####[facility] Mioistnjuw[address] [place], [place] [address]Dr.Airam ChangProtein [Mass/Vol]6.6 g/dL Normal6.4-8.2The [facility] HospitalComment on above:Performed By: #### CMP ####[facility] Kczttefelu928[address] [place], [place] [address]Dr. Airam ChangSodium [Moles/Vol]135 mmol/LCritically zkg819-150Rkc [facility] HospitalComment on above:Performed By: #### CMP ####[facility] Yfhrrtmykc[address] [place], [place] [address]Dr.Airam ChangUrea nitrogen [Mass/Vol]51.0 mg/dLCritically high7.0-18.0The [facility] HospitalComment on above:Performed By: #### CMP ####[facility] Gisvxjvpwb543[address] [place], [place] [address]Dr.Selenalan ChangUrea nitrogen/Creatinine [Mass ratio] 28.0 mg/mgNormUC [facility] HospitalComment on above:Performed By: #### CMP ####[facility] Yocptgzuak[address] [place], [place] [address]Dr. Airam ChangOSMOLALITYon 89-09-4899Ltcxoshujl [Osmolality]280 mosm/kgNormal 275-295The [facility] HospitalComment on above:Performed By: #### OSMO ####[facility] Twsxtvdkax5829[address] [place], [place] [address]Dr. Airam TripathiCBC AUTO DIFFon 07-87-3725DIEV #0.0 103/ulNormal0.0-0.1The [facility] HospitalComment on above:Performed By: #### CBC ####[facility] Ilpewobvvg056[address] [place], [place] [address]Dr.Airam TripathiBasophils/100 WBC (Bld)0.2 %Normal0.2-2.0The [facility] HospitalComment on above:Performed By: #### CBC ####[facility] Xqrigcyymo[address] [place], [place] [address]Dr.Selenalan ChangEO #0.2 103/ulNormal0.0-0.7The [facility] HospitalComment on above:Performed By: #### CBC ####[facility] Uhynecrahs1414[address] [place], [place] [address]Dr.Airam ChangEosinophils/100 WBC (Bld)2.4 %Normal 0.9-7.0The [facility] HospitalComment on above:Performed By: #### CBC ####[facility] Gpjufbtjia[address] [place], [place] [address]Dr.Airam Tripathi Erythrocyte distribution width (RBC) [Ratio]14.2 %Cdjpvj34.0-15.0The [facility] HospitalComment on above:Performed By: #### CBC ####[facility] Rdcxkmzcez232[address] [place], [place] [address]Dr.Airam TripathiHematocrit (Bld) [Volume fraction]30.1 %Critically low36.0-48.0The [facility] HospitalComment on above:Performed By: #### CBC ####[facility] Gvybimrmve648[address] [place], [place] [address]Dr.Airam TripathiHemoglobin (Bld) [Mass/Vol]9.2 g/dL Critically low12.0-16.0The [facility] HospitalComment on above:Performed By: #### CBC ####[facility] Mpzowwtezr67[address] [place], [place] [address]Dr. Airam TripathiIG #0.04 10e3/ulCritically high0.00-0.03[facility] SystemComment on above:Performed By: #### CBC ####[facility] Rvtqrmtutn[address] [place] [address]Dr.Airam TripathiIG %0.4 %Normal0.0-0.5The [facility] HospitalComment on above:Performed By: #### CBC ####[facility] Qyamtulrbm[address] [place] [address]Dr.Airam TripathiLYMPH #0.9 103/ulCritically low1.2-3.8The [facility] HospitalComment on above:Performed By: #### CBC ####[facility] Ghsvdazwlr[address] [place], [place] [address]Dr.Airam TripathiLymphocytes/100 WBC (Bld)9.3 %Critically low20.5-60.0The [facility] HospitalComment on above:Performed By: #### CBC ####[facility] Cmfqjtoniz144[address] [place], [place] [address]Dr.Airam TripathiMANUAL DIFF REQ NONormalThe [facility] HospitalComment on above:Performed By: #### CBC ####[facility] Agenaijdvn338[address] [place], [place] [address]Dr. Airam TripathiH (RBC) [Entitic mass]27.7 fwMdpfaf21.7-34.0[facility] Comment on above:Performed By: #### CBC ####[facility] Hdjuhdvfwq887[address] [place], [place] [address]Dr.Airam TripathiHC (RBC) [Mass/Vol]30.6 g/dL Hxsauy52.9-35.2The [facility] HospitalComment on above:Performed By: #### CBC ####[facility] Upqqtcrzyi69[address] [place], [place] [address]Dr. Airam TripathiV (RBC) [Entitic vol]90.7 dGLuqfha90.0-99.0The [facility] Comment on above:Performed By: #### CBC ####[facility] Jqdfakuonj173[address] [place], [place] [address]Dr.Airam TripathiTEXAS COUNTY MEMORIAL HOSPITALO #0.5 103/ulNormal0.3-0.[address] [facility] HospitalComment on above:Performed By: #### CBC ####[facility] Icpajddnha247[address] [place], [place] [address]Dr.Airam Tripathi Monocytes/100 WBC (Bld)5.3 %Normal1.7-12.0The [facility] HospitalComment on above: Performed By: #### CBC ####[facility] Nszkagogdq614[address] [place], [place] [address]Dr.Airam TripathiNEUT #7.7 103/ulCritically high1.4-6.[address] [facility] HospitalComment on above:Performed By: #### CBC ####[facility] Gyayyvcink947[address] [place], [place] [address]Dr.Airam Tripathi Neutrophils/100 WBC (Bld)82.4 %Critically high43.0-75.0The [facility] Comment on above:Performed By: #### CBC ####[facility] Loygovyycm735[address] [place], [place] [address]Dr.Airam TripathiPlatelet mean volume (Bld) [Entitic vol]9.8 fLNormal9.5-13.5The [facility] HospitalComment on above:Performed By: #### CBC ####[facility] Rilwnspgfg[address] [place], [place] [address]Dr.Airam GbtyiBRE423 103/cfBzgfjx669-054Ytq [facility] HospitalComment on above:Performed By: #### CBC ####[facility] Lbpahrkcaq309[address] [place], [place] [address]Dr.Airam DeuceRBC3.32 106/ulCritically low4.20-5.40The [facility] HospitalComment on above:Performed By: #### CBC ####[facility] Nwpvwtgzyy689[address] [place], [place] [address]Dr.Airam DeuceWBC9.4 103/ul Normal4.0-11.0The [facility] HospitalComment on above:Performed By: #### CBC ####[facility] Ezmuwklzox026[address] [place], [place] [address]Dr. Yilan ChangMRI WRIST RT WO CONon 46-74-5995TIH WRIST RT WO CONNormalThe [facility] HospitalPROF 14(COMP METB)on 06-41-7684Rzxvgrz [Mass/Vol]3.1 g/dLCritically low 3.4-5.0The [facility] HospitalComment on above:Performed By: #### CMP ####[facility] Ygjvztlqnv017[address] [place], [place] [address]Dr.Airam Tripathi Albumin/Globulin [Mass ratio]0.9 {ratio}NormalThe [facility] HospitalComment on above:Performed By: #### CMP ####[facility] Yetttbcnxe050[address] [place], [place] [address]Dr.Airam TripathiALP [Catalytic activity/Vol]162 U/L Critically xtle08-065Brq [facility] HospitalComment on above:Performed By: #### CMP ####[facility] Bbisstkmfb946[address] [place], [place] [address]Dr. Airam TripathiALT [Catalytic activity/Vol]19 U/AXidupb99-03Ycn [facility] Comment on above:Performed By: #### CMP ####[facility] Mdbwpylgzg[address] [place], [place] [address]Dr.Airam TripathiAnion gap [Moles/Vol]13.0 mmol/LNormalThe [facility] HospitalComment on above:Performed By: #### CMP ####[facility] Vbmusiytda[address] [place], [place] [address]Dr. Airam ChangAST [Catalytic activity/Vol]21 U/JItuyjx33-31Dkq [facility] Comment on above:Performed By: #### CMP ####[facility] Bcokcnakxl[address] [place], [place] [address]Dr.Airam ChangBilirubin [Mass/Vol]0.3 mg/dL Normal0.2-1.0The [facility] HospitalComment on above:Performed By: #### CMP ####[facility] Tiojcjhmzp[address] [place], [place] [address]Dr. Airam TripathiCalcium [Mass/Vol]8.4 mg/dLCritically low8.5-10.1The [facility] HospitalComment on above:Performed By: #### CMP ####[facility] [address]zmyrbmw[address] [place] [address]Dr.Yilan ChangChloride [Moles/Vol]103 mmol/UFsduxy52-713Smi [facility] HospitalComment on above:Performed By: #### CMP ####[facility] Jldvtksiob784[address] [place], [place] [address]Dr.Yilan ChangCO2 [Moles/Vol]23.3 mmol/OWofuvq33.0-32.0The [facility] HospitalComment on above:Performed By: #### CMP ####[facility] Jtuqncrspq74[address] [place], [place] [address]Dr.Yilan ChangCreatinine [Mass/Vol]1.02 mg/dLNormal0.55-1.02The [facility] HospitalCommclaren flint on above: Performed By: #### CMP ####[facility] Cvoiqkynyy[address] [place], [place] [address]Dr.Yilan ChangEGFR-AF CUBAN>60Normal>=60The [facility] on above:Performed By: #### CMP ####[facility] Jwqxrvvgoh64[address] [place], [place] [address]Dr.Yilan ChangEGFR-NON AF NEWYPIDG24 mL/min/1.76p2Vdjrbkhngy low>=60The [facility] HospitalCommclaren flint on above: Performed By: #### CMP ####[facility] Rxwrwgtdzr501[address] [place], [place] [address]Dr.Yilan ChangGlobulin (S) [Mass/Vol]3.4 g/dLNormalThe [facility] HospitalComment on above:Performed By: #### CMP ####[facility] Xfkmrjjbfa39[address] [place], [place] [address]Dr.Yilan ChangGlucose [Mass/Vol]88 mg/aJQrupri10-907Vjh [facility] HospitalCommclaren flint on above:Performed By: #### CMP ####[facility] Zyfafrnros423[address] [place], [place] [address]Dr.Yilan ChangPotassium [Moles/Vol]4.3 mmol/LNormal3.5-5.1The [facility] HospitalComment on above:Performed By: #### CMP ####[facility] Riwaqzvrud[address] [place] [address]Dr.Yilan ChangProtein [Mass/Vol]6.5 g/dLNormal6.4-8.2The [facility] HospitalComment on above:Performed By: #### CMP ####[facility] Psuszspvsb35[address] [place] [address]Dr.Yilan ChangSodium [Moles/Vol]135 mmol/LCritically jxf762-042Joj [facility] HospitalComment on above:Performed By: #### CMP ####[facility] Kmzbfmtqgl72[address] [place] [address]Dr.Yilan ChangUrea nitrogen [Mass/Vol]27.0 mg/dLCritically high7.0-18.0The [facility] HospitalComment on above:Performed By: #### CMP ####[facility] Myobnlccrg37[address] [place] [address]Dr.Selenalan ChangUrea nitrogen/Creatinine [Mass ratio] 26.5 mg/mgNormalThOhioHealth Doctors HospitalComment on above:Performed By: #### CMP ####[facility] Bwfdeehtql[address] [place] [address]Dr. Airam TripathiCT HEAD WO CONon 74-41-4544OL HEAD WO [facility] CT LSPINE WO CONon 94-27-6096NG LSPINE WO [facility] CenterXR HAND RT MIN 3Von 08-16-0134JS HAND RT MIN 3VNormUC [facility] HospitalXR KNEE LT 4V or >on 23-74-4186II KNEE LT 4V or >NormalThe [facility] HospitalXR WRIST RT MIN 3 Von 72-18-0685NI WRIST RT MIN 3 VNNationwide Children's HospitalOSMOLALITYon 01-11-2732Ewyyivitgg [Osmolality]282 mosm/bePatxdh935-489Zhm [facility] Comment on above:Performed By: #### OSMO ####[facility] Fudnwkjebu[address] [place] [address]Dr. Airam BabcockC AUTO DIFFon 02-08-2023 BASO #0.0 103/ulNormal0.0-0.1The [facility] HospitalComment on above:Performed By: #### CBC ####[facility] Krmomhcclh[address] [place], [place] [address]Dr.Yilan ChangBasophils/100 WBC (Bld)0.5 %Normal0.2-2.0The [facility] HospitalComment on above:Performed By: #### CBC ####[facility] Pxylugcwit[address] [place], [place] [address]Dr.Yilan ChangEO #0.5 103/ul Normal0.0-0.7The [facility] HospitalComment on above:Performed By: #### CBC ####[facility] Ihmvhmudua247[address] [place], [place] [address]Dr. Yilan ChangEosinophils/100 WBC (Bld)5.2 %Normal0.9-7.0The [facility] Comment on above:Performed By: #### CBC ####[facility] Eestwvsyrh[address] [place], [place] [address]Dr.Selenalan ChangErythrocyte distribution width (RBC) [Ratio]14.3 %Arlmvu37.0-15.0The [facility] HospitalComment on above: Performed By: #### CBC ####[facility] Tzskhlifqu228[address] [place], [place] [address]Dr.Airam ChangHematocrit (Bld) [Volume fraction]31.4 % Critically low36.0-48.0The [facility] HospitalComment on above:Performed By: #### CBC ####[facility] Trymldttoh509[address] [place], [place] [address]Dr. Selenalan ChangHemoglobin (Bld) [Mass/Vol]9.5 g/dLCritically low12.0-16.0The [facility] HospitalComment on above:Performed By: #### CBC ####[facility] Ubqdoaarei704[address] [place], [place] [address]Dr.Yilan ChangIG #0.05 10e3/ulCritically high0.00-0.03The [facility] HospitalComment on above:Performed By: #### CBC ####[facility] S[address]shvizns[address] [place] [address]Dr.Airam TripathiIG %0.6 %Critically high0.0-0.5The [facility] HospitalComment on above:Performed By: #### CBC ####[facility] Ckhloidwzj48[address] [place] [address]Dr.Airam TripathiLYMPH #1.5 103/ulNormal1.2-3.8The [facility] HospitalComment on above:Performed By: #### CBC ####[facility] Zsmdpnfjji9[address] [place], [place] [address]Dr.Airam TripathiLymphocytes/100 WBC (Bld)17.6 %Critically low20.5-60.0The [facility] HospitalComment on above: Performed By: #### CBC ####[facility] Pwwtfpfhdh[address] [place], [place] [address]Dr.Airam TripathiMANUAL DIFF REQNONormalThe [facility] HospitalComment on above:Performed By: #### CBC ####[facility] Cwyhfxvded[address] [place], [place] [address]Dr.Airam TripathiH (RBC) [Entitic mass]29.0 cmHabpat12.7-34.0The [facility] HospitalComment on above: Performed By: #### CBC ####[facility] Hguvioctne[address] [place], [place] [address]Dr.Airam TripathiHC (RBC) [Mass/Vol]30.3 g/dLNormal 29.9-35.2The [facility] HospitalComment on above:Performed By: #### CBC ####[facility] Cahckxeiga[address] [place], [place] [address]Dr. Airam TripathiMCV (RBC) [Entitic vol]95.7 gJEigfof61.0-99.0The [facility] Comment on above:Performed By: #### CBC ####[facility] Tarwtutbjj[address] [place], [place] [address]Dr.Airam TripathiMONO #0.7 103/ulNormal0.3-0.[address] [facility] HospitalComment on above:Performed By: #### CBC ####[facility] [address] [place] [address]Dr.Airam Tripathi Monocytes/100 WBC (Bld)8.5 %Normal1.7-12.0The [facility] HospitalComment on above: Performed By: #### CBC ####[facility] Rwqrahbvtf[address] [place] [address]Dr.Airam TripathiNEUT #5.8 103/ulNormal1.4-6.5The [facility] HospitalComment on above:Performed By: #### CBC ####[facility] Pevxncinzc[address] [place] [address]Dr.Airam TripathiNeutrophils/100 WBC (Bld)67.6 %Guyvuh38.0-75.0The [facility] HospitalCommclaren flint on above:Performed By: #### CBC ####[facility] Slieenmqjg[address] [place], [place] [address]Dr.Airam TripathiPlatelet mean volume (Bld) [Entitic vol]9.5 fLNormal9.5-13.[address] [facility] HospitalCommclaren flint on above:Performed By: #### CBC ####[facility] Wbaimxoeja[address] [place], [place] [address]Dr.Airam XrnwvRQC332 103/frAmwegm725-899Wnq [facility] on above:Performed By: #### CBC ####[facility] Tibudpxqcv247[address] [place], [place] [address]Dr. Airam ChangRBC3.28 106/ulCritically low4.20-5.40The [facility] on above:Performed By: #### CBC ####[facility] Kkzyrdnvvx14[address] [place], [place] [address]Dr.Airam ChangWBC8.6 103/ulNormal4.0-11.0The [facility] on above:Performed By: #### CBC ####[facility] Tyiovdqprk[address] [place], [place] [address]Dr.Airam ChangPROF 14(COMP METB)on 68-52-2494Vpwnrxg [Mass/Vol]3.0 g/dLCritically low3.4-5.0The [facility] HospitalComment on above:Performed By: #### CMP ####[facility] Jqxzgkfhwf[address] [place] [address]Dr.Airam Tripathi Albumin/Globulin [Mass ratio]0.9 {ratio}NormalThe [facility] HospitalComment on above:Performed By: #### CMP ####[facility] Jmgaovinst[address] [place] [address]Dr.Yineil ChangALP [Catalytic activity/Vol]184 U/L Critically icrl05-536Jza [facility] HospitalComment on above:Performed By: #### CMP ####[facility] Kbqcnuwmux998[address] [place], [place] [address]Dr. Yineil ChangALT [Catalytic activity/Vol]18 U/EEfntvv79-92Dqj [facility] Comment on above:Performed By: #### CMP ####[facility] Necuxqeneg230[address] [place], [place] [address]Dr.Airam ChangAnion gap [Moles/Vol]11.2 mmol/LNormalThe [facility] HospitalComment on above:Performed By: #### CMP ####[facility] Vdptijzhqv65[address] [place], [place] [address]Dr. Yineil ChangAST [Catalytic activity/Vol]19 U/EGrgzal03-49Pgf [facility] Comment on above:Performed By: #### CMP ####[facility] Fooexmirwp4318[address] [place], [place] [address]Dr.Yineil ChangBilirubin [Mass/Vol]0.3 mg/dL Normal0.2-1.0The [facility] HospitalComment on above:Performed By: #### CMP ####[facility] Hxmyjysnhx[address] [place], [place] [address]Dr. Yineil ChangCalcium [Mass/Vol]8.8 mg/dLNormal8.5-10.1The [facility] HospitalComment on above:Performed By: #### CMP ####[facility] Migglbdfmy504[address] [place], [place] [address]Dr.Yilan ChangChloride [Moles/Vol]101 mmol/LNormal 98-107The [facility] Centerment on above:Performed By: #### CMP ####[facility] Cgpqupvcsq6[address] [place], [place] [address]Dr.Airam ChangCO2 [Moles/Vol]25.4 mmol/GOpihwb76.0-32.0The [facility] HospitalComment on above: Performed By: #### CMP ####[facility] Ivfekddxie036[address] [place], [place] [address]Dr.Airam ChangCreatinine [Mass/Vol]1.05 mg/dL Critically high0.55-1.02The [facility] HospitalCommclaren flint on above:Performed By: #### CMP ####[facility] Ogdnzxpakq994[address] [place], [place] [address]Dr.Selenalan ChangEGFR-AF CUBAN>60Normal>=60[facility] on above:Performed By: #### CMP ####[facility] Xgfdcqzyes923[address] [place], [place] [address]Dr.Selenalan ChangEGFR-NON AF VEHLQSAL34 mL/min/1.73m2 Critically low>=60The [facility] HospitalCommclaren flint on above:Performed By: #### CMP ####[facility] Tpbcclsqqm5[address] [place], [place] [address]Dr. Airam ChangGlobulin (S) [Mass/Vol]3.4 g/dLNormalThe [facility] HospitalCommclaren flint on above:Performed By: #### CMP ####[facility] Tdondyzjbo[address] [place], [place] [address]Dr.Airam ChangGlucose [Mass/Vol]78 mg/mITaftsc38-[address] [facility] HospitalComment on above:Performed By: #### CMP ####[facility] Twsozqihwx957[address] [place], [place] [address]Dr.Selenalan Tripathi Potassium [Moles/Vol]4.6 mmol/LNormal3.5-5.1The [facility] on above:Performed By: #### CMP ####[facility] Oxwszxcolz41980[address] [place], [place] [address]Dr.Yilan ChangProtein [Mass/Vol]6.4 g/dLNormal6.4-8.[address] [facility] HospitalComment on above:Performed By: #### CMP ####[facility] Kjvaxzwepm083[address] [place], [place] [address]Dr.Yilan ChangSodium [Moles/Vol]133 mmol/LCritically xdd540-232Yqh [facility] HospitalComment on above:Performed By: #### CMP ####[facility] Zqcixiawum4059[address] [place], [place] [address]Dr.Yilan ChangUrea nitrogen [Mass/Vol]26.0 mg/dL Critically high7.0-18.0The [facility] HospitalComment on above:Performed By: #### CMP ####[facility] Vvoafzbowk[address] [place], [place] [address]Dr. Selenalan ChangUrea nitrogen/Creatinine [Mass ratio]24.8 mg/mgNormalThe [facility] HospitalComment on above:Performed By: #### CMP ####[facility] Zkvmmmtrhj39[address] [place], [place] [address]Dr.Airam ChangOSMOLALITYon 65-52-9281Mxexmhtksa [Osmolality]287 mosm/edDdrjnc411-281Tur [facility] Comment on above:Performed By: #### OSMO ####[facility] Zfaeckbmsa99[address] [place], [place] [address]Dr. Airam DeuceCBC AUTO DIFFon 07-27-2022 BASO #0.0 103/ulNormal0.0-0.1The [facility] HospitalComment on above:Performed By: #### CBC ####[facility] Erjpznycwj607[address] [place], [place] [address]Dr.Selenalan ChangBasophils/100 WBC (Bld)0.4 %Normal0.2-2.0The [facility] HospitalComment on above:Performed By: #### CBC ####[facility] Rkhkgmjuky7025[address] [place], [place] [address]Dr.Selenalan ChangEO #0.2 103/ul Normal0.0-0.7The [facility] HospitalComment on above:Performed By: #### CBC ####[facility] Gakypivfgx[address] [place] [address]Dr. Selenaneil ChangEosinophils/100 WBC (Bld)2.6 %Normal0.9-7.0The [facility] Comment on above:Performed By: #### CBC ####[facility] Zsiuyffbyv[address] [place], [place] [address]Dr.Selenaneil ChangErythrocyte distribution width (RBC) [Ratio]14.2 %Rbhrwc17.0-15.0The [facility] HospitalComment on above: Performed By: #### CBC ####[facility] Qgbfghygnr333[address] [place], [place] [address]Dr.Selenaneil ChangHematocrit (Bld) [Volume fraction]31.3 % Critically low36.0-48.0The [facility] HospitalComment on above:Performed By: #### CBC ####[facility] Ktldvicumo434[address] [place], [place] [address]Dr. Airam ChangHemoglobin (Bld) [Mass/Vol]9.3 g/dLCritically low12.0-16.0The [facility] HospitalComment on above:Performed By: #### CBC ####[facility] Ysbshjqgec[address] [place], [place] [address]Dr.Selenaneil ChangIG #0.05 10e3/ulCritically high0.00-0.03The [facility] HospitalComment on above:Performed By: #### CBC ####[facility] Jevylwnvjx[address] [place], [place] [address]Dr.Airam ChangIG %0.7 %Critically high0.0-0.5The [facility] HospitalComment on above:Performed By: #### CBC ####[facility] Uovwkfjtwq[address] [place], [place] [address]Dr.Yilan ChangLYMPH #1.0 103/ulCritically low1.2-3.[address] [facility] HospitalComment on above:Performed By: #### CBC ####[facility] Srbzlbvaft6[address] [place], [place] [address]Dr.Airam Tripathi Lymphocytes/100 WBC (Bld)13.4 %Critically low20.5-60.0The [facility] Comment on above:Performed By: #### CBC ####[facility] Jlerxcomwl[address] [place] [address]Dr.Airam TripathiMANUAL DIFF REQNONormalThe [facility] HospitalComment on above:Performed By: #### CBC ####[facility] Vaatzhktvk7[address] [place] [address]Dr.Airam TripathiH (RBC) [Entitic mass]28.8 vfKlkszk24.7-34.0The [facility] HospitalComment on above: Performed By: #### CBC ####[facility] Vrrtmvbsdx360[address] [place] [address]Dr.Airam TripathiMCHC (RBC) [Mass/Vol]29.7 g/dLCritically low29.9-35.2The [facility] HospitalComment on above:Performed By: #### CBC ####[facility] Atfzohoato397[address] [place], [place] [address]Dr. Airam TripathiV (RBC) [Entitic vol]96.9 gCQmeqkw43.0-99.0The [facility] Comment on above:Performed By: #### CBC ####[facility] Aydsojeust339[address] [place], [place] [address]Dr.Airam TripathiMONO #0.5 103/ulNormal0.3-0.[address] [facility] HospitalComment on above:Performed By: #### CBC ####[facility] Jxkyiwvlxb739[address] [place], [place] [address]Dr.Airam Tripathi Monocytes/100 WBC (Bld)6.3 %Normal1.7-12.0The [facility] HospitalComment on above: Performed By: #### CBC ####[facility] Yxabrxktrz155[address] [place], [place] [address]Dr.Airam DeuceNEUT #5.8 103/ulNormal1.4-6.5The [facility] HospitalComment on above:Performed By: #### CBC ####[facility] Lpsfpurevi4569[address] [place], [place] [address]Dr.Airam DeuceNeutrophils/100 WBC (Bld)76.6 %Critically high43.0-75.0The [facility] HospitalComment on above: Performed By: #### CBC ####[facility] Aakgpbzbzd[address] [place] [address]Dr.Airam TripathiPlatelet mean volume (Bld) [Entitic vol] 10.3 fLNormal9.5-13.5The [facility] HospitalComment on above:Performed By: #### CBC ####[facility] Jmsvevezgh[address] [place] [address]Dr. Airam NmxscMJI666 103/fgGwhxpx623-194Mzp [facility] HospitalComment on above: Performed By: #### CBC ####[facility] Xqcqmkzkzu807[address] [place], [place] [address]Dr.Airam ChangRBC3.23 106/ulCritically low4.20-5.40The [facility] HospitalComment on above:Performed By: #### CBC ####[facility] Dmwchrisfi4709[address] [place], [place] [address]Dr.Airam TripathiWBC7.6 103/ul Normal4.0-11.0The [facility] HospitalComment on above:Performed By: #### CBC ####[facility] Higfizqddg917[address] [place], [place] [address]Dr. Airam TripathiPROF 14(COMP METB)on 03-77-9757Vfxgxke [Mass/Vol]2.9 g/dLCritically low3.4-5.0The [facility] HospitalComment on above:Performed By: #### CMP ####[facility] Murnetqrnc368[address] [place], [place] [address]Dr. Airam TripathiAlbumin/Globulin [Mass ratio]0.8 {ratio}NormalThe [facility] Comment on above:Performed By: #### CMP ####[facility] Hkiemmocnf330[address] [place], [place] [address]Dr.Airam TripathiALP [Catalytic activity/Vol] 175 U/LCritically jqsa52-147Giz [facility] HospitalComment on above:Performed By: #### CMP ####[facility] Ycujzcdttl201[address] [place], [place] [address]Dr.Yilan ChangALT [Catalytic activity/Vol]24 U/VUtstmi37-00Ptg [facility] HospitalComment on above:Performed By: #### CMP ####[facility] Wbugjtuwcx043[address] [place], [place] [address]Dr.Airam ChangAnion gap [Moles/Vol]14.3 mmol/LNormalThe [facility] HospitalComment on above:Performed By: #### CMP ####[facility] Cdpgyupsuy727[address] [place], [place] [address]Dr.Yineil ChangAST [Catalytic activity/Vol]25 U/AOkvacv40-19Ajs [facility] HospitalComment on above:Performed By: #### CMP ####[facility] Dhuiaiqbhj260[address] [place], [place] [address]Dr.Airam ChangBilirubin [Mass/Vol]0.2 mg/dLNormal0.2-1.0The [facility] HospitalComment on above:Performed By: #### CMP ####[facility] Nosyhqijgn339[address] [place], [place] [address]Dr.Airam ChangCalcium [Mass/Vol]8.6 mg/dLNormal8.5-10.1The [facility] HospitalComment on above:Performed By: #### CMP ####[facility] Wvdihhyzcu708[address] [place], [place] [address]Dr.Airam ChangChloride [Moles/Vol]102 mmol/PYorftg38-814Jju [facility] HospitalComment on above:Performed By: #### CMP ####[facility] Turbvhjhfj0739[address] [place], [place] [address]Dr.Yilan ChangCO2 [Moles/Vol]23.7 mmol/VQacehx91.0-32.0The [facility]Comment on above:Performed By: #### CMP ####[facility] Votpejfnvt204[address] [place], [place] [address]Dr.Selenalan ChangCreatinine [Mass/Vol]1.29 mg/dLCritically high0.55-1.02The [facility] HospitalComment on above:Performed By: #### CMP ####[facility] Oxdmknybzc243[address] [place], [place] [address]Dr.Yilan ChangEGFR-AF UGXNUJLV27 mL/min/1.73m2 Critically low>=60The [facility] HospitalComment on above:Performed By: #### CMP ####[facility] Yuztxnesyb464[address] [place], [place] [address]Dr. Selenalan ChangEGFR-NON AF ZJFDKSGJ07 mL/min/1.83d1Liaiiintgo low>=60The [facility] HospitalComment on above:Performed By: #### CMP ####[facility] Ktkpysmbgv04110[address] [place], [place] [address]Dr.Airam ChangGlobulin (S) [Mass/Vol]3.6 g/dLNormalThe [facility] HospitalComment on above:Performed By: #### CMP ####[facility] Xrotlpcjdh542[address] [place], [place] [address]Dr.Selenalan ChangGlucose [Mass/Vol]84 mg/wMJjfmim38-215Htd [facility] Comment on above:Performed By: #### CMP ####[facility] Nkgeusrkyn1216[address] [place], [place] [address]Dr.Airam ChangPotassium [Moles/Vol]5.0 mmol/LNormal3.5-5.1The [facility] HospitalComment on above:Performed By: #### CMP ####[facility] Auprgkrbos788[address] [place], [place] [address]Dr. Yilan ChangProtein [Mass/Vol]6.5 g/dLNormal6.4-8.2The [facility] HospitalComment on above:Performed By: #### CMP ####[facility] Javvkftvyd18[address] [place], [place] [address]Dr.Yilan ChangSodium [Moles/Vol]135 mmol/LCritically lob472-336Usw [facility] HospitalComment on above:Performed By: #### CMP ####[facility] Ewtdzzrzcb646[address] [place], [place] [address]Dr. Yilan ChangUrea nitrogen [Mass/Vol]28.0 mg/dLCritically high7.0-18.0The [facility] HospitalComment on above:Performed By: #### CMP ####[facility] Ctqnazbtma[address] [place] [address]Dr.Selenaneil ChangUrea nitrogen/Creatinine [Mass ratio]21.7 mg/mgNoCleveland Clinic Fairview HospitalComment on above:Performed By: #### CMP ####[facility] Anvufbtckq78260[address] [place], [place] [address]Dr.Yilan ChangXR LSPINE MIN 4 VIEWSon 79-87-8599QA LSPINE MIN 4 VIEWSNoCleveland Clinic Fairview HospitalOSMOLALITYon 30-95-9001Fxkzjxxpqv [Osmolality]279 mosm/jmOswptk713-867Fnf [facility] HospitalComment on above: Performed By: #### OSMO ####[facility] Pafleglcwx048[address] [place], [place] [address]Dr. Selenalan ChangCBC AUTO DIFFon 59-59-1335ZBNB #0.0 103/ulNormal0.0-0.1The [facility] HospitalCommclaren flint on above:Performed By: #### CBC ####[facility] Bfaukesiga103[address] [place], [place] [address]Dr. Yilan ChangBasophils/100 WBC (Bld)0.4 %Normal0.2-2.0[facility] SystemCommclaren flint on above:Performed By: #### CBC ####[facility] Bazndylcja274[address] [place], [place] [address]Dr.Yilan ChangEO #0.2 103/ulNormal0.0-0.7The [facility] HospitalCommclaren flint on above:Performed By: #### CBC ####[facility] Fdiwcdnlnf867[address] [place], [place] [address]Dr.Yilan ChangEosinophils/100 WBC (Bld)2.3 %Normal0.9-7.0[facility] SystemComment on above:Performed By: #### CBC ####[facility] Ioqobqffoz349[address] [place], [place] [address]Dr.Selenalan ChangErythrocyte distribution width (RBC) [Ratio]13.6 %Normal 11.0-15.0The [facility] HospitalComment on above:Performed By: #### CBC ####[facility] Tkilukytfc7[address] [place], [place] [address]Dr. Selenaneil DeuceHematocrit (Bld) [Volume fraction]32.6 %Critically low36.0-48.0The [facility] HospitalComment on above:Performed By: #### CBC ####[facility] Vwrobffpka463[address] [place], [place] [address]Dr.Selenaneil ChangHemoglobin (Bld) [Mass/Vol]9.5 g/dLCritically low12.0-16.0The [facility] HospitalComment on above:Performed By: #### CBC ####[facility] Xzlzigvtaw133[address] [place], [place] [address]Dr.Yilan ChangIG #0.03 10e3/ulNormal0.00-0.03The [facility] HospitalComment on above:Performed By: #### CBC ####[facility] Weqwrrzuvh530[address] [place], [place] [address]Dr.Airam ChangIG %0.4 %Normal 0.0-0.5The [facility] HospitalComment on above:Performed By: #### CBC ####[facility] Dxhqxnxhou175[address] [place], [place] [address]Dr.Selenaneil ChangLYMPH #1.4 103/ulNormal1.2-3.8The [facility] HospitalComment on above:Performed By: #### CBC ####[facility] Rzaisyqldd590[address] [place], [place] [address]Dr.Selenaneil DeuceLymphocytes/100 WBC (Bld)18.2 %Critically low20.5-60.0The [facility] HospitalComment on above:Performed By: #### CBC ####[facility] Gczveyolzz326[address] [place], [place] [address]Dr.Selenaneil ChangMANUAL DIFF REQ NONormalThe [facility] HospitalComment on above:Performed By: #### CBC ####[facility] Urxfryghmv014[address] [place], [place] [address]Dr. Airam TripathiMCH (RBC) [Entitic mass]29.5 giClcwwi05.7-34.0The [facility] Comment on above:Performed By: #### CBC ####[facility] Glqnejnnjn[address] [place] [address]Dr.Airam CoxHC (RBC) [Mass/Vol]29.1 g/dL Critically low29.9-35.2The [facility] HospitalComment on above:Performed By: #### CBC ####[facility] Qpwjctncqd98[address] [place] [address]Dr. Airam TripathiMCV (RBC) [Entitic vol]101.2 fLCritically high81.0-99.0The [facility] HospitalComment on above:Performed By: #### CBC ####[facility] Lbmgmirtpi057[address] [place], [place] [address]Dr.Airam TripathiMONO #0.6 103/ulNormal0.3-0.8The [facility] HospitalComment on above:Performed By: #### CBC ####[facility] Whzufkoufe385[address] [place], [place] [address]Dr. Airam TripathiMonocytes/100 WBC (Bld)7.9 %Normal1.7-12.0The [facility] Comment on above:Performed By: #### CBC ####[facility] Ruhepsjucq9029[address] [place], [place] [address]Dr.Airam TripathiNEUT #5.5 103/ulNormal1.4-6.[address] [facility] HospitalComment on above:Performed By: #### CBC ####[facility] Xoaanzeuhc097[address] [place], [place] [address]Dr.Airam Tripathi Neutrophils/100 WBC (Bld)70.8 %Ukknmo51.0-75.0The [facility] HospitalComment on above:Performed By: #### CBC ####[facility] Ouyfyvojae934[address] [place], [place] [address]Dr.Airam TripathiPlatelet mean volume (Bld) [Entitic vol] 9.6 fLNormal9.5-13.5The [facility] HospitalComment on above:Performed By: #### CBC ####[facility] Tbfepywkwi844[address] [place], [place] [address]Dr. Airam TripathiPLT265 103/doBmjhyw247-738Xob [facility] HospitalComment on above: Performed By: #### CBC ####[facility] Pdduxkgsyv05[address] [place] [address]Dr.Yineil ChangRBC3.22 106/ulCritically low4.20-5.40The [facility] HospitalComment on above:Performed By: #### CBC ####[facility] Zclupnxkpr[address] [place] [address]Dr.Yineil ChangWBC7.8 103/ul Normal4.0-11.0The [facility] HospitalComment on above:Performed By: #### CBC ####[facility] Bsfuqvnwqx8[address] [place], [place] [address]Dr. Yilan ChangPROF 14(COMP METB)on 08-32-0705Zdmvmaq [Mass/Vol]2.9 g/dLCritically low3.4-5.0The [facility] HospitalComment on above:Performed By: #### CMP ####[facility] Uplqgzbpns497[address] [place], [place] [address]Dr. Airam ChangAlbumin/Globulin [Mass ratio]0.9 {ratio}NormalThe [facility] Comment on above:Performed By: #### CMP ####[facility] Ffhbtqpntv283[address] [place], [place] [address]Dr.Yilan ChangALP [Catalytic activity/Vol] 176 U/LCritically lcjc91-922Ezi [facility] HospitalComment on above:Performed By: #### CMP ####[facility] Ciulscyhmi597[address] [place], [place] [address]Dr.Yilan ChangALT [Catalytic activity/Vol]19 U/OSzzqva50-60Akp [facility] HospitalComment on above:Performed By: #### CMP ####[facility] Dtjamqfejp933[address] [place], [place] [address]Dr.Selenalan ChangAnion gap [Moles/Vol]12.6 mmol/LNormalThe [facility] HospitalComment on above:Performed By: #### CMP ####[facility] Qjzooinejk743[address] [place], [place] [address]Dr.Yilan ChangAST [Catalytic activity/Vol]25 U/YIjnlfq43-70Xih [facility] HospitalComment on above:Performed By: #### CMP ####[facility] Qcrwgqbygi363[address] [place], [place] [address]Dr.Yilan ChangBilirubin [Mass/Vol]0.2 mg/dLNormal0.2-1.0The [facility] HospitalComment on above:Performed By: #### CMP ####[facility] Hqoyvkuajd[address] [place], [place] [address]Dr.Yilan ChangCalcium [Mass/Vol]8.5 mg/dLNormal8.5-10.1The [facility] HospitalComment on above:Performed By: #### CMP ####[facility] Uwfvqsctuz66[address] [place], [place] [address]Dr.Yilan ChangChloride [Moles/Vol]101 mmol/UHcumwq80-509Njn [facility] HospitalComment on above:Performed By: #### CMP ####[facility] Mnkgvnlfzr330[address] [place], [place] [address]Dr.Yilan ChangCO2 [Moles/Vol]25.9 mmol/NWqytvp11.0-32.0The [facility] HospitalComment on above:Performed By: #### CMP ####[facility] Cjdxvwwlpe0[address] [place], [place] [address]Dr.Yilan ChangCreatinine [Mass/Vol]1.11 mg/dLCritically high0.55-1.02The [facility] HospitalCommclaren flint on above:Performed By: #### CMP ####[facility] Zmmdswctkr[address] [place], [place] [address]Dr.Yilan ChangEGFR-AF CUBAN>60Normal>=60The [facility] HospitalComment on above:Performed By: #### CMP ####[facility] [address]auwzogskg[address] [place], [place] [address]Dr.Yilan ChangEGFR-NON AF AIXSZWVL12 mL/min/1.00p6Vqansscylj low>=60The [facility] HospitalComment on above: Performed By: #### CMP ####[facility] Dqpjhmtnco[address] [place], [place] [address]Dr.Yilan ChangGlobulin (S) [Mass/Vol]3.2 g/dLNormalThe [facility] HospitalComment on above:Performed By: #### CMP ####[facility] Wklqfsmqkw[address] [place], [place] [address]Dr.Yineil ChangGlucose [Mass/Vol]80 mg/cDVwktqr04-245Flh [facility] HospitalComment on above:Performed By: #### CMP ####[facility] Hoeuirbkeo[address] [place], [place] [address]Dr.Yilan ChangPotassium [Moles/Vol]3.5 mmol/LNormal3.5-5.1The [facility] HospitalComment on above:Performed By: #### CMP ####[facility] Noahfngomv[address] [place], [place] [address]Dr.Yilan ChangProtein [Mass/Vol]6.1 g/dLCritically low6.4-8.2The [facility] HospitalComment on above: Performed By: #### CMP ####[facility] Awqjmbhqah[address] [place], [place] [address]Dr.Yilan ChangSodium [Moles/Vol]136 mmol/LNormal 136-145The [facility] HospitalComment on above:Performed By: #### CMP ####[facility] Jugnpjwvki97[address] [place], [place] [address]Dr.Selenalan ChangUrea nitrogen [Mass/Vol]31.0 mg/dLCritically high7.0-18.0The [facility] HospitalComment on above:Performed By: #### CMP ####[facility] Uifxyjcakf[address] [place], [place] [address]Dr.Yilan ChangUrea nitrogen/Creatinine [Mass ratio] 27.9 mg/mgNormUC West Chester HospitalComment on above:Performed By: #### CMP ####[facility] Satwxminfj44[address] [place], [place] [address]Dr. Airam ChangOSMOLALITYon [id number] [Osmolality]285 mosm/kgNormal 275-295The [facility] HospitalComment on above:Performed By: #### OSMO ####[facility] Lmirgnbakv24[address] [place], [place] [address]Dr. Yilan ChangCBC AUTO DIFFon [id number] #0.0 103/ulNormal0.0-0.1The [facility] HospitalComment on above:Performed By: #### CBC ####[facility] Lmqbaiaddl[address] [place], [place] [address]Dr.Airam ChangBasophils/100 WBC (Bld)0.2 %Normal0.2-2.0The [facility] HospitalComment on above:Performed By: #### CBC ####[facility] Qsppegjjxt636[address] [place], [place] [address]Dr.Selenalan ChangEO #0.1 103/ulNormal0.0-0.7The [facility] HospitalComment on above:Performed By: #### CBC ####[facility] Bhzzlpobch38[address] [place], [place] [address]Dr.Airam ChangEosinophils/100 WBC (Bld)1.4 %Normal 0.9-7.0The [facility] HospitalComment on above:Performed By: #### CBC ####[facility] Qsfkpglfhn332[address] [place], [place] [address]Dr.Airam Tripathi Erythrocyte distribution width (RBC) [Ratio]13.0 %Nghwqn97.0-15.0The [facility] HospitalComment on above:Performed By: #### CBC ####[facility] Uheauxqfqg409[address] [place], [place] [address]Dr.Airam TripathiHematocrit (Bld) [Volume fraction]29.3 %Critically low36.0-48.0The [facility] HospitalComment on above:Performed By: #### CBC ####[facility] Djpctyhgud005[address] [place], [place] [address]Dr.Airam TripathiHemoglobin (Bld) [Mass/Vol]10.3 g/dL Critically low12.0-16.0The [facility] HospitalComment on above:Performed By: #### CBC ####[facility] Ftlzscjyvj[address] [place], [place] [address]Dr. Airam ChangIG #0.05 10e3/ulCritically high0.00-0.03The [facility] HospitalComment on above:Performed By: #### CBC ####[facility] P[address]legchlf[address] [place] [address]Dr.Airam TripathiIG %0.6 %Critically high0.0-0.5The [facility] HospitalComment on above:Performed By: #### CBC ####[facility] Shlgogxeai[address] [place] [address]Dr.Airam TripathiLYMPH #0.9 103/ulCritically low1.2-3.8The [facility] HospitalComment on above:Performed By: #### CBC ####[facility] Rkwgekfkah39[address] [place] [address]Dr.Airam TripathiLymphocytes/100 WBC (Bld)10.6 %Critically low20.5-60.0The [facility] HospitalComment on above:Performed By: #### CBC ####[facility] Emixsufemu07[address] [place], [place] [address]Dr.Airam TripathiMANUAL DIFF REQ NONormalThe [facility] HospitalComment on above:Performed By: #### CBC ####[facility] Jmogyuhxno377[address] [place], [place] [address]Dr. Airam DeuceH (RBC) [Entitic mass]29.3 luLdvuxd67.7-34.0[facility] Comment on above:Performed By: #### CBC ####[facility] Qghxqdxmbu529[address] [place], [place] [address]Dr.Airam DeuceHC (RBC) [Mass/Vol]35.2 g/dL Vmsfmk12.9-35.2[facility] SystemComment on above:Performed By: #### CBC ####[facility] Mkfhrkglix447[address] [place], [place] [address]Dr. Airam DeuceV (RBC) [Entitic vol]83.5 sHOpjwub30.0-99.0The [facility] Comment on above:Performed By: #### CBC ####[facility] Xhmfbfsbpr504[address] [place], [place] [address]Dr.Airam KodakO #0.5 103/ulNormal0.3-0.8 The [facility] HospitalComment on above:Performed By: #### CBC ####[facility] Eftidmcapr[address] [place] [address]Dr.Airam Tripathi Monocytes/100 WBC (Bld)5.1 %Normal1.7-12.0The [facility] HospitalComment on above: Performed By: #### CBC ####[facility] Zvommawesp6[address] [place], [place] [address]Dr.Airam TripathiNEUT #7.3 103/ulCritically high1.4-6.[address] [facility] HospitalComment on above:Performed By: #### CBC ####[facility] Zcxgtvvoge87360[address] [place], [place] [address]Dr.Airam Tripathi Neutrophils/100 WBC (Bld)82.1 %Critically high43.0-75.0The [facility] Comment on above:Performed By: #### CBC ####[facility] Ssreuyayvq115[address] [place], [place] [address]Dr.Airam TripathiPlatelet mean volume (Bld) [Entitic vol]8.9 fLCritically low9.5-13.5The [facility] HospitalComment on above: Performed By: #### CBC ####[facility] Gvpknumuju016[address] [place], [place] [address]Dr.Airam TripathiPLT290 103/omJjlzrv297-873Hiz [facility] HospitalComment on above:Performed By: #### CBC ####[facility] Efdnihsoji3329[address] [place], [place] [address]Dr.Airam TripathiRBC3.51 106/ul Critically low4.20-5.40The [facility] HospitalComment on above:Performed By: #### CBC ####[facility] Gdvwtzwgbe545[address] [place], [place] [address]Dr. Airam TripathiWBC8.9 103/ulNormal4.0-11.0[facility] SystemComment on above: Performed By: #### CBC ####[facility] Raaazenrgk229[address] [place], [place] [address]Dr.Airam TripathiPROF 14(COMP METB)on 91-67-4518Dnfsygk [Mass/Vol]3.2 g/dLCritically low3.4-5.0The [facility] HospitalComment on above: Performed By: #### CMP ####[facility] Vvrpsmdeek299[address] [place], [place] [address]Dr.Yilan ChangAlbumin/Globulin [Mass ratio]0.9 {ratio} NormalThe [facility] HospitalComment on above:Performed By: #### CMP ####[facility] Eyjchnocwa258[address] [place], [place] [address]Dr.Yilan ChangALP [Catalytic activity/Vol]194 U/LCritically jjwv75-416Arg [facility] HospitalComment on above:Performed By: #### CMP ####[facility] Jqoxrchrcp686[address] [place], [place] [address]Dr.Yilan ChangALT [Catalytic activity/Vol]19 U/LNormal 14-59The [facility] HospitalComment on above:Performed By: #### CMP ####[facility] Jouikchbvp315[address] [place], [place] [address]Dr.Yilan ChangAnion gap [Moles/Vol]11.3 mmol/LNormalThe [facility] HospitalComment on above:Performed By: #### CMP ####[facility] Ywfykmfzgh629[address] [place], [place] [address]Dr.Yilan ChangAST [Catalytic activity/Vol]24 U/POebiub40-43Dnv [facility] HospitalComment on above:Performed By: #### CMP ####[facility] Dhbenrkkjb786[address] [place], [place] [address]Dr.Yilan ChangBilirubin [Mass/Vol]0.2 mg/dLNormal0.2-1.0The [facility] HospitalComment on above:Performed By: #### CMP ####[facility] Ohyqyzkbla9[address] [place], [place] [address]Dr.Yilan ChangCalcium [Mass/Vol]8.7 mg/dLNormal8.5-10.1The [facility] HospitalComment on above:Performed By: #### CMP ####[facility] Txpflybphh095[address] [place], [place] [address]Dr.Yilan ChangChloride [Moles/Vol]101 mmol/ENssrbf69-849Gud [facility] HospitalComment on above:Performed By: #### CMP ####[facility] Dwwejukoro032[address] [place], [place] [address]Dr.Selenalan ChangCO2 [Moles/Vol]27.2 mmol/JPucjab39.0-32.0The [facility] HospitalComment on above:Performed By: #### CMP ####[facility] Uhxvlcahip7817[address] [place], [place] [address]Dr.Airam ChangCreatinine [Mass/Vol]1.17 mg/dLCritically high0.55-1.02The [facility] HospitalComment on above:Performed By: #### CMP ####[facility] Oxypwvhjpw006[address] [place], [place] [address]Dr.Selenalan ChangEGFR-AF SRJXVMJS47 mL/min/1.73m2 Critically low>=60The [facility] HospitalComment on above:Performed By: #### CMP ####[facility] Iujlpctmrb2927[address] [place], [place] [address]Dr. Selenalan ChangEGFR-NON AF WBDRRFDA48 mL/min/1.93t7Ekmnlvxduf low>=60The [facility] HospitalComment on above:Performed By: #### CMP ####[facility] Lsvgnljroq601[address] [place], [place] [address]Dr.Airam ChangGlobulin (S) [Mass/Vol]3.5 g/dLNormalThe [facility] HospitalComment on above:Performed By: #### CMP ####[facility] Jdmljakcup633[address] [place], [place] [address]Dr.Selenalan ChangGlucose [Mass/Vol]86 mg/hBVtlgni98-335Cwo [facility] Comment on above:Performed By: #### CMP ####[facility] Xqfebeqsab968[address] [place], [place] [address]Dr.Selenalan ChangPotassium [Moles/Vol]5.5 mmol/LCritically high3.5-5.1The [facility] HospitalComment on above:Performed By: #### CMP ####[facility] Wadalrthoz[address] [place] [address]Dr.Airam ChangProtein [Mass/Vol]6.7 g/dLNormal6.4-8.2The [facility] Comment on above:Performed By: #### CMP ####[facility] Tzdbjjaasq4699[address] [place], [place] [address]Dr.Airam ChangSodium [Moles/Vol]134 mmol/L Critically mjq342-963Ova [facility] HospitalComment on above:Performed By: #### CMP ####[facility] Yxiqzgxtsx3839[address] [place], [place] [address]Dr. Selenalan ChangUrea nitrogen [Mass/Vol]26.0 mg/dLCritically high7.0-18.0The [facility] HospitalComment on above:Performed By: #### CMP ####[facility] Chktnjhpzd235[address] [place], [place] [address]Dr.Selenalan ChangUrea nitrogen/Creatinine [Mass ratio]22.2 mg/mgNormalThe [facility] HospitalComment on above:Performed By: #### CMP ####[facility] Locxxtwxlu0025[address] [place], [place] [address]Dr.Airam ChangOSMOLALITYon 24-20-4520Vczvfcqbgk [Osmolality]273 mosm/kgCritically cfl382-818Ybs [facility] HospitalComment on above:Performed By: #### OSMO ####[facility] Rlvszxusjm7129[address] [place], [place] [address]Dr. Selenaneil DeuceCBC AUTO DIFFon [id number] #0.0 103/ulNormal0.0-0.1The [facility] HospitalComment on above:Performed By: #### CBC ####[facility] Vhvlrkmyjz9413[address] [place], [place] [address]Dr. Airam ChangBasophils/100 WBC (Bld)0.4 %Normal0.2-2.0The [facility] HospitalComment on above:Performed By: #### CBC ####[facility] Ottjjptkjb7169[address] [place], [place] [address]Dr.Selenalan ChangEO #0.1 103/ulNormal0.0-0.7The [facility] HospitalComment on above:Performed By: #### CBC ####[facility] Oekawfennf757[address] [place], [place] [address]Dr.Airam ChangEosinophils/100 WBC (Bld)1.6 %Normal0.9-7.0The [facility] HospitalComment on above:Performed By: #### CBC ####[facility] Cnfqdspmik685[address] [place], [place] [address]Dr.Airam ChangErythrocyte distribution width (RBC) [Ratio]13.1 %Normal 11.0-15.0The [facility] HospitalComment on above:Performed By: #### CBC ####[facility] Llmsjeqhrf282[address] [place], [place] [address]Dr. Airam ChangHematocrit (Bld) [Volume fraction]33.7 %Critically low36.0-48.0The [facility] HospitalComment on above:Performed By: #### CBC ####[facility] Owzefjksnh754[address] [place], [place] [address]Dr.Airam ChangHemoglobin (Bld) [Mass/Vol]9.9 g/dLCritically low12.0-16.0The [facility] HospitalComment on above:Performed By: #### CBC ####[facility] Dqfuflwffc532[address] [place], [place] [address]Dr.Airam ChangIG #0.05 10e3/ulCritically high0.00-0.[address] [facility] HospitalComment on above:Performed By: #### CBC ####[facility] Viwdxnqgcu9[address] [place], [place] [address]Dr.Airam ChangIG % 0.6 %Critically high0.0-0.5The [facility] HospitalComment on above:Performed By: #### CBC ####[facility] Pwrvnmbsih[address] [place], [place] [address]Dr.Selenalan ChangLYMPH #1.2 103/ulNormal1.2-3.8The [facility] HospitalComment on above:Performed By: #### CBC ####[facility] Sxvkjmzkdz598[address] [place], [place] [address]Dr.Yilan ChangLymphocytes/100 WBC (Bld)15.5 % Critically low20.5-60.0The [facility] HospitalComment on above:Performed By: #### CBC ####[facility] Mezybriekf0229[address] [place], [place] [address]Dr. Airam TripathiMANUAL DIFF REQNONormalThe [facility] HospitalComment on above: Performed By: #### CBC ####[facility] Yhhjlekqst112[address] [place], [place] [address]Dr.Airam TripathiH (RBC) [Entitic mass]28.7 pgNormal 26.7-34.0The [facility] HospitalComment on above:Performed By: #### CBC ####[facility] Aizuhwnlgb410[address] [place], [place] [address]Dr. Airam TripathiHC (RBC) [Mass/Vol]29.4 g/dLCritically low29.9-35.2The [facility] HospitalComment on above:Performed By: #### CBC ####[facility] Nzqaywmqrg5624[address] [place], [place] [address]Dr.Airam TripathiV (RBC) [Entitic vol]97.7 yZYldkgw76.0-99.0The [facility] HospitalComment on above: Performed By: #### CBC ####[facility] Spegeresdf78[address] [place], [place] [address]Dr.Airam TripathiMONO #0.6 103/ulNormal0.3-0.8The [facility] HospitalComment on above:Performed By: #### CBC ####[facility] Zobpkbqoeq907[address] [place], [place] [address]Dr.Airam TripathiMonocytes/100 WBC (Bld)7.7 %Normal1.7-12.0The [facility] HospitalComment on above:Performed By: #### CBC ####[facility] Nwblgmeszc039[address] [place], [place] [address]Dr.Airam TripathiNEUT #5.9 103/ulNormal1.4-6.5The [facility] HospitalComment on above:Performed By: #### CBC ####[facility] Ogzswvddrs60[address] [place] [address]Dr.Selenaneil DeuceNeutrophils/100 WBC (Bld)74.2 %Normal 43.0-75.0The [facility] HospitalComment on above:Performed By: #### CBC ####[facility] Wpnugchqia57[address] [place] [address]Dr. Airam DeucePlatelet mean volume (Bld) [Entitic vol]9.4 fLCritically low9.5-13.[address] [facility] HospitalComment on above:Performed By: #### CBC ####[facility] Abjfbnhxot280[address] [place], [place] [address]Dr.Airam BmmtdIQD389 103/bhRjfitx217-875Bdz [facility] HospitalComment on above:Performed By: #### CBC ####[facility] Ldqsxpqxsp056[address] [place], [place] [address]Dr. Airam ChangRBC3.45 106/ulCritically low4.20-5.40The [facility] HospitalComment on above:Performed By: #### CBC ####[facility] Kvamhddsyt819[address] [place], [place] [address]Dr.Airam TripathiWBC7.9 103/ulNormal4.0-11.0The [facility] HospitalComment on above:Performed By: #### CBC ####[facility] Rwtsmfuqmk088[address] [place], [place] [address]Dr.Airam TripathiPROF 14(COMP METB)on 44-73-1790Viqokid [Mass/Vol]3.4 g/dLNormal3.4-5.0The [facility] Comment on above:Performed By: #### CMP ####[facility] Nwhdhutklf2619[address] [place], [place] [address]Dr.Airam TripathiAlbumin/Globulin [Mass ratio] 1.1 {ratio}NormalThe [facility] HospitalComment on above:Performed By: #### CMP ####[facility] Iwzqikhpvd984[address] [place], [place] [address]Dr. Airam TripathiALP [Catalytic activity/Vol]197 U/LCritically malc93-488Ttk [facility] HospitalComment on above:Performed By: #### CMP ####[facility] Fkkafukari19[address] [place] [address]Dr.Yilan ChangALT [Catalytic activity/Vol]18 U/IRxanen53-53Wpy [facility] HospitalComment on above:Performed By: #### CMP ####[facility] Tpvthmvxdp1337 [place] [address]Dr.Yilan ChangAnion gap [Moles/Vol]12.3 mmol/LNormalThe [facility] Comment on above:Performed By: #### CMP ####[facility] Tkrsaagftq[address] [place], [place] [address]Dr.Yilan ChangAST [Catalytic activity/Vol]26 U/YRwybja14-49Gyb [facility] HospitalCommclaren flint on above:Performed By: #### CMP ####[facility] Onkwzfjras939[address] [place], [place] [address]Dr. Yilan ChangBilirubin [Mass/Vol]0.3 mg/dLNormal0.2-1.0The [facility] Comment on above:Performed By: #### CMP ####[facility] Aksxvnugxl080[address] [place], [place] [address]Dr.Yilan ChangCalcium [Mass/Vol]8.6 mg/dL Normal8.5-10.1The [facility] HospitalComment on above:Performed By: #### CMP ####[facility] Urowyrlezt125[address] [place], [place] [address]Dr. Yilan ChangChloride [Moles/Vol]96 mmol/LCritically ayj06-190Cae [facility] HospitalComment on above:Performed By: #### CMP ####[facility] Gvjbpxcsqv[address] [place], [place] [address]Dr.Yilan ChangCO2 [Moles/Vol] 27.8 mmol/BSbugcs81.0-32.0The [facility] HospitalComment on above:Performed By: #### CMP ####[facility] Pbqfmuzneg942[address] [place], [place] [address]Dr.Yilan ChangCreatinine [Mass/Vol]1.55 mg/dLCritically high0.55-1.02The [facility] HospitalComment on above:Performed By: #### CMP ####[facility] Jsssqyaxmh[address] [place] [address]Dr.Yilan ChangEGFR-AF OEJSJAAT39 mL/min/1.23g8Nvawvoomnc low>=60The [facility] HospitalCommclaren flint on above: Performed By: #### CMP ####[facility] Ajrvusgtdk2[address] [place] [address]Dr.Yilan ChangEGFR-NON AF EQJAEADK63 mL/min/1.73m2 Critically low>=60The [facility] HospitalComment on above:Performed By: #### CMP ####[facility] Ibbbmxlevf023[address] [place] [address]Dr. Airam ChangGlobulin (S) [Mass/Vol]3.2 g/dLNormalThOhioHealth Doctors HospitalCommclaren flint on above:Performed By: #### CMP ####[facility] Kpjdqbllzs77[address] [place], [place] [address]Dr.Airam ChangGlucose [Mass/Vol]87 mg/fCRlbwqw16-900 [facility] SystemCommclaren flint on above:Performed By: #### CMP ####[facility] Xgaelokgee30[address] [place], [place] [address]Dr.Airam Tripathi Potassium [Moles/Vol]5.1 mmol/LNormal3.5-5.1[facility] on above:Performed By: #### CMP ####[facility] Xrmiffzvsm895[address] [place], [place] [address]Dr.Airam ChangProtein [Mass/Vol]6.6 g/dLNormal6.4-8.2 [facility] SystemCommclaren flint on above:Performed By: #### CMP ####[facility] Pxmkmxuvbe855[address] [place], [place] [address]Dr.Airam ChangSodium [Moles/Vol]131 mmol/LCritically pfh030-996BdrC[facility] Clinic [facility] on above:Performed By: #### CMP ####[facility] Vdfcsodren[address] [place], [place] [address]Dr.Airam ChangUrea nitrogen [Mass/Vol]31.0 mg/dL Critically high7.0-18.0The [facility] HospitalComment on above:Performed By: #### CMP ####[facility] Vfnqsvstmy[address] [place], [place] [address]Dr. Yilan ChangUrea nitrogen/Creatinine [Mass ratio]20.0 mg/mgNormalThe [facility] HospitalComment on above:Performed By: #### CMP ####[facility] Dpjpvikxya[address] [place], [place] [address]Dr.Airam ChangOSMOLALITYon 83-61-2609Xdlaqoueme [Osmolality]281 mosm/hyZkmnko602-547Tte [facility] Comment on above:Performed By: #### OSMO ####[facility] Yxuyrvrwyk23[address] [place], [place] [address]Dr. Selenaneil ChangCBC AUTO DIFFon 06-29-2022 BASO #0.0 103/ulNormal0.0-0.1The [facility] HospitalComment on above:Performed By: #### CBC ####[facility] Hjbbudyqdl976[address] [place], [place] [address]Dr.Yilan ChangBasophils/100 WBC (Bld)0.3 %Normal0.2-2.0The [facility] HospitalComment on above:Performed By: #### CBC ####[facility] Irzrihysmz624[address] [place], [place] [address]Dr.Yilan ChangEO #0.2 103/ul Normal0.0-0.7The [facility] HospitalComment on above:Performed By: #### CBC ####[facility] Mlhulaanyt6[address] [place], [place] [address]Dr. Yilan ChangEosinophils/100 WBC (Bld)2.3 %Normal0.9-7.0The [facility] Comment on above:Performed By: #### CBC ####[facility] Ionzzlzkax[address] [place], [place] [address]Dr.Yilan ChangErythrocyte distribution width (RBC) [Ratio]13.2 %Rfkaow89.0-15.0The [facility] HospitalComment on above: Performed By: #### CBC ####[facility] Whdfxvmcoo344[address] [place], [place] [address]Dr.Airam TripathiHematocrit (Bld) [Volume fraction]28.2 % Critically low36.0-48.0The [facility] HospitalComment on above:Performed By: #### CBC ####[facility] Wttglucufd[address] [place], [place] [address]Dr. Airam ChangHemoglobin (Bld) [Mass/Vol]9.1 g/dLCritically low12.0-16.0The [facility]Comment on above:Performed By: #### CBC ####[facility] Rhzzowpgyu623[address] [place], [place] [address]Dr.Yilan ChangIG #0.03 10e3/ulNormal0.00-0.03The [facility] HospitalComment on above:Performed By: #### CBC ####[facility] Yinuvtjbmy[address] [place], [place] [address]Dr. Airam ChangIG %0.4 %Normal0.0-0.5The [facility] HospitalComment on above:Performed By: #### CBC ####[facility] Axwsyilotf[address] [place], [place] [address]Dr.Airam ChangLYMPH #1.0 103/ulCritically low1.2-3.8The [facility] HospitalComment on above:Performed By: #### CBC ####[facility] Mvfllecfzg5825[address] [place], [place] [address]Dr.Airam TripathiLymphocytes/100 WBC (Bld)12.8 %Critically low20.5-60.0The [facility] HospitalComment on above: Performed By: #### CBC ####[facility] Kkdddeyoon[address] [place], [place] [address]Dr.Selenalan DeuceMANUAL DIFF REQNONormalThe [facility] HospitalComment on above:Performed By: #### CBC ####[facility] Lkchjibzis[address] [place], [place] [address]Dr.Airam TripathiMCH (RBC) [Entitic mass]29.9 fcJucxdw51.7-34.0The [facility] HospitalComment on above: Performed By: #### CBC ####[facility] Xorropfq[address] [place] [address]Dr.Airam TripathiMCHC (RBC) [Mass/Vol]32.3 g/dLNormal 29.9-35.2The [facility] HospitalComment on above:Performed By: #### CBC ####[facility] Lwlyzuisbm[address] [place] [address]Dr. Airam TripathiMCV (RBC) [Entitic vol]92.8 ySJsyvet92.0-99.0The [facility] Comment on above:Performed By: #### CBC ####[facility] Eukujzixjm[address] [place], [place] [address]Dr.Airam TripathiMONO #0.5 103/ulNormal0.3-0.[address] [facility] HospitalComment on above:Performed By: #### CBC ####[facility] Qdgiryjpoz[address] [place], [place] [address]Dr.Airam Tripathi Monocytes/100 WBC (Bld)6.0 %Normal1.7-12.0The [facility] HospitalComment on above: Performed By: #### CBC ####[facility] Fcxovjhsuz[address] [place], [place] [address]Dr.Airam TripathiNEUT #6.0 103/ulNormal1.4-6.5The [facility] HospitalComment on above:Performed By: #### CBC ####[facility] Beldhlstjv[address] [place], [place] [address]Dr.Airam TripathiNeutrophils/100 WBC (Bld)78.2 %Critically high43.0-75.0The [facility] HospitalComment on above: Performed By: #### CBC ####[facility] Egiwlgigbi8[address] [place], [place] [address]Dr.Airam TripathiPlatelet mean volume (Bld) [Entitic vol] 9.0 fLCritically low9.5-13.5The [facility] HospitalComment on above:Performed By: #### CBC ####[facility] Lvaivcilol[address] [place], [place] [address]Dr.Airam TripathiPLT332 103/baMpigtr564-836Viv [facility] HospitalComment on above:Performed By: #### CBC ####[facility] Xudxzvvwaz[address] [place] [address]Dr.Yineil ChangRBC3.04 106/ulCritically low4.20-5.40The [facility] HospitalComment on above:Performed By: #### CBC ####[facility] Mdggwxssdt8[address] [place], [place] [address]Dr.Yineil ChangWBC7.7 103/ul Normal4.0-11.0The [facility] HospitalComment on above:Performed By: #### CBC ####[facility] Urxxhvfnpq448[address] [place], [place] [address]Dr. Selenalan ChangPROF 14(COMP METB)on 19-50-6821Hzbkukt [Mass/Vol]3.2 g/dLCritically low3.4-5.0The [facility] HospitalComment on above:Performed By: #### CMP ####[facility] Uvbjwjxwxw14[address] [place], [place] [address]Dr. Airam ChangAlbumin/Globulin [Mass ratio]0.9 {ratio}NormalThe [facility] Comment on above:Performed By: #### CMP ####[facility] Amxxficuap[address] [place], [place] [address]Dr.Selenalan ChangALP [Catalytic activity/Vol] 135 U/LCritically bmwr48-394Fla [facility] HospitalComment on above:Performed By: #### CMP ####[facility] Fwdlavgwof[address] [place], [place] [address]Dr.Yilan ChangALT [Catalytic activity/Vol]25 U/DCfusfi88-99Ibh [facility] HospitalComment on above:Performed By: #### CMP ####[facility] Yzoskqkxrg768[address] [place], [place] [address]Dr.Airam ChangAnion gap [Moles/Vol]9.1 mmol/LNormalThe [facility] HospitalComment on above:Performed By: #### CMP ####[facility] Jlbcasempp[address] [place], [place] [address]Dr.Yilan ChangAST [Catalytic activity/Vol]34 U/ADdrinj42-89Zqh [facility] HospitalComment on above:Performed By: #### CMP ####[facility] Rhbnlqhvyh8[address] [place], [place] [address]Dr.Yilan ChangBilirubin [Mass/Vol]0.3 mg/dLNormal0.2-1.0The [facility] HospitalComment on above:Performed By: #### CMP ####[facility] Jnfvywypdr027[address] [place], [place] [address]Dr.Yilan ChangCalcium [Mass/Vol]8.6 mg/dLNormal8.5-10.1The [facility] HospitalComment on above:Performed By: #### CMP ####[facility] Qqfgonmokz[address] [place], [place] [address]Dr.Yilan ChangChloride [Moles/Vol]99 mmol/USacaqz23-316Ofj [facility] HospitalComment on above:Performed By: #### CMP ####[facility] Bglpkvptob455[address] [place], [place] [address]Dr.Yilan ChangCO2 [Moles/Vol]29.1 mmol/XRybjlv37.0-32.0The [facility] HospitalComment on above:Performed By: #### CMP ####[facility] Eazwchqnvv[address] [place], [place] [address]Dr.Yilan ChangCreatinine [Mass/Vol]1.40 mg/dLCritically high0.55-1.02The [facility] HospitalComment on above:Performed By: #### CMP ####[facility] Uqxouarkha940[address] [place], [place] [address]Dr.Yilan ChangEGFR-AF DFXNRLWR55 mL/min/1.73m2 Critically low>=60The [facility] HospitalComment on above:Performed By: #### CMP ####[facility] Chgotfrgck9[address] [place], [place] [address]Dr. Yilan ChangEGFR-NON AF SUYMCOBO96 mL/min/1.89n8Ybwmzduuyk low>=60The [facility] HospitalComment on above:Performed By: #### CMP ####[facility] Sbsrdzdvxt952[address] [place], [place] [address]Dr.Yilan ChangGlobulin (S) [Mass/Vol]3.4 g/dLNormUC [facility] HospitalComment on above:Performed By: #### CMP ####[facility] Rrhratwksl7517[address] [place], [place] [address]Dr.Yilan ChangGlucose [Mass/Vol]83 mg/wMTzslha17-287Sqv [facility] Comment on above:Performed By: #### CMP ####[facility] Virbkiassy[address] [place], [place] [address]Dr.Selenalan ChangPotassium [Moles/Vol]4.2 mmol/LNormal3.5-5.1The [facility] HospitalComment on above:Performed By: #### CMP ####[facility] Vfpnllgqeo505[address] [place], [place] [address]Dr. Yilan ChangProtein [Mass/Vol]6.6 g/dLNormal6.4-8.2The [facility] HospitalComment on above:Performed By: #### CMP ####[facility] Veofkjgssz724[address] [place], [place] [address]Dr.Airam ChangSodium [Moles/Vol]133 mmol/LCritically hsu734-725Ahg [facility] HospitalComment on above:Performed By: #### CMP ####[facility] Klnhjrbcrx6625[address] [place], [place] [address]Dr. Selenalan ChangUrea nitrogen [Mass/Vol]37.0 mg/dLCritically high7.0-18.0The [facility] HospitalComment on above:Performed By: #### CMP ####[facility] Rwukwotfhe773[address] [place], [place] [address]Dr.Yilan ChangUrea nitrogen/Creatinine [Mass ratio]26.4 mg/mgNormUC [facility] HospitalComment on above:Performed By: #### CMP ####[facility] Ozghhyesgw638[address] [place], [place] [address]Dr.Airam ChangBNPon 70-55-5095Pbfalirjtoq peptide B (Bld) [Mass/Vol]5826.0 pg/mLCritically high<=900.0The [facility] HospitalComment on above:Performed By: #### BNP, CMP ####[facility] Zkjlbwnbst230[address] [place], [place] [address]Dr. Airam ChangCBC AUTO DIFFon 25-43-8595YFBH # 0.0 103/ulNormal0.0-0.1The [facility] HospitalComment on above:Performed By: #### CBC ####[facility] Xverdljimp63[address] [place], [place] [address]Dr. Airam ChangBasophils/100 WBC (Bld)0.4 %Normal0.2-2.0The [facility] HospitalComment on above:Performed By: #### CBC ####[facility] Xdwivfspwk013[address] [place], [place] [address]Dr.Yilan ChangEO #0.1 103/ulNormal0.0-0.7The [facility] HospitalComment on above:Performed By: #### CBC ####[facility] Zihqelwmbv80[address] [place], [place] [address]Dr.Airam ChangEosinophils/100 WBC (Bld)1.3 %Normal0.9-7.0The [facility] HospitalComment on above:Performed By: #### CBC ####[facility] Dvxkzhufcf32[address] [place], [place] [address]Dr.Airam ChangErythrocyte distribution width (RBC) [Ratio]13.4 %Normal 11.0-15.0The [facility] HospitalComment on above:Performed By: #### CBC ####[facility] Thtyrrpebi209[address] [place], [place] [address]Dr. Airam ChangHematocrit (Bld) [Volume fraction]27.3 %Critically low36.0-48.0The [facility] HospitalComment on above:Performed By: #### CBC ####[facility] Egkpmytqzi002[address] [place], [place] [address]Dr.Airam ChangHemoglobin (Bld) [Mass/Vol]8.6 g/dLCritically low12.0-16.0The [facility] HospitalComment on above:Performed By: #### CBC ####[facility] Qvcgegjawn[address] [place], [place] [address]Dr.Airam TripathiIG #0.08 10e3/ulCritically high0.00-0.[address] [facility] HospitalComment on above:Performed By: #### CBC ####[facility] Bjgdtnkeio[address] [place] [address]Dr.Airam TripathiIG % 0.8 %Critically high0.0-0.5The [facility] HospitalComment on above:Performed By: #### CBC ####[facility] Jbteffyddg209[address] [place], [place] [address]Dr.Airam TripathiLYMPH #1.9 103/ulNormal1.2-3.8The [facility] HospitalComment on above:Performed By: #### CBC ####[facility] Yafhlrmutk678[address] [place], [place] [address]Dr.Airam TripathiLymphocytes/100 WBC (Bld)19.3 % Critically low20.5-60.0The [facility] HospitalComment on above:Performed By: #### CBC ####[facility] Qcoitrsngx664[address] [place], [place] [address]Dr. Airam TripathiMANUAL DIFF REQNONormalThe [facility] HospitalComment on above: Performed By: #### CBC ####[facility] Nrshpmbext[address] [place], [place] [address]Dr.Airam TripathiK[facility] (RBC) [Entitic mass]29.6 pgNormal 26.7-34.0The [facility] HospitalComment on above:Performed By: #### CBC ####[facility] Gcmzjnevcp[address] [place], [place] [address]Dr. Airam TripathiNASSAU [facility] (RBC) [Mass/Vol]31.5 g/pGHflzlt39.9-35.2The [facility] Comment on above:Performed By: #### CBC ####[facility] Bykhmjtego979[address] [place], [place] [address]Dr.Airam TripathiV (RBC) [Entitic vol]93.8 fL Mlwycf29.0-99.0The [facility] HospitalComment on above:Performed By: #### CBC ####[facility] Gvtvcuhskk[address] [place] [address]Dr. Airam TripathiMONO #0.6 103/ulNormal0.3-0.8The [facility] HospitalComment on above: Performed By: #### CBC ####[facility] Ndmwbygknk9[address] [place] [address]Dr.Yilan ChangMonocytes/100 WBC (Bld)6.5 %Normal 1.7-12.0The [facility] HospitalComment on above:Performed By: #### CBC ####[facility] Uvjplhbzkz439[address] [place], [place] [address]Dr. Selenalan ChangNEUT #6.9 103/ulCritically high1.4-6.5The [facility] HospitalComment on above:Performed By: #### CBC ####[facility] Sbprpbcjkp419[address] [place], [place] [address]Dr.Yilan ChangNeutrophils/100 WBC (Bld)71.7 %Normal 43.0-75.0The [facility] HospitalComment on above:Performed By: #### CBC ####[facility] Znvwboadsp226[address] [place], [place] [address]Dr. Yilan ChangPlatelet mean volume (Bld) [Entitic vol]8.5 fLCritically low9.5-13.[address] [facility] HospitalComment on above:Performed By: #### CBC ####[facility] Nupiepoqga456[address] [place], [place] [address]Dr.Selenalan HwfomHBF132 103/aiJtgmxb687-390Sfy [facility] HospitalCommclaren flint on above:Performed By: #### CBC ####[facility] Ldevxmxqpg026[address] [place], [place] [address]Dr. Yilan ChangRBC2.91 106/ulCritically low4.20-5.40The [facility] HospitalCommclaren flint on above:Performed By: #### CBC ####[facility] Vqqgcgnxfu443[address] [place], [place] [address]Dr.Selenalan ChangWBC9.7 103/ulNormal4.0-11.0The [facility] HospitalComment on above:Performed By: #### CBC ####[facility] Chreqgwfui[address] [place] [address]Dr.Airam ChangPROF 14(COMP METB)on 81-94-1439Ykktror [Mass/Vol]2.8 g/dLCritically low3.4-5.0The [facility] HospitalComment on above:Performed By: #### BNP, CMP ####[facility] Atmcmeibwp34[address] [place] [address]Dr. Airam Tripathi Albumin/Globulin [Mass ratio]0.9 {ratio}NormalThe [facility] HospitalComment on above:Performed By: #### BNP, CMP ####[facility] Poyssarsoh[address] [place] [address]Dr. Airam ChangALP [Catalytic activity/Vol]125 U/L Critically dvfn74-223Hbr [facility] HospitalComment on above:Performed By: #### BNP, CMP ####[facility] Fktxzssffz078[address] [place], [place] [address]Dr. Airam ChangALT [Catalytic activity/Vol]16 U/YTgisbe98-69Zci [facility] HospitalComment on above:Performed By: #### BNP, CMP ####[facility] Pjkoczuckq748[address] [place], [place] [address]Dr. Airam TripathiAnion gap [Moles/Vol]11.4 mmol/LNormalThe [facility] HospitalComment on above:Performed By: #### BNP, CMP ####[facility] Eqtpwxvkuw37[address] [place] [address]Dr. Airam ChangAST [Catalytic activity/Vol]23 U/IGonsjt72-60Nfj [facility] HospitalComment on above:Performed By: #### BNP, CMP ####[facility] Zmhmtlcwvj957[address] [place], [place] [address]Dr. Airam Tripathi Bilirubin [Mass/Vol]0.2 mg/dLNormal0.2-1.0The [facility] HospitalComment on above: Performed By: #### BNP, CMP ####[facility] Knosyananc[address] [place], [place] [address]Dr. Airam ChangCalcium [Mass/Vol]8.1 mg/dLCritically low8.5-10.1The [facility] HospitalComment on above:Performed By: #### BNP, CMP ####[facility] Cftuiqdqhu83[address] [place], [place] [address]Dr. Yilan ChangChloride [Moles/Vol]96 mmol/LCritically aqj99-840Xam [facility] HospitalComment on above:Performed By: #### BNP, CMP ####[facility] Njvboaxctx174[address] [place], [place] [address]Dr. Yilan ChangCO2 [Moles/Vol]26.6 mmol/PRbsdwx01.0-32.0The [facility] HospitalComment on above: Performed By: #### BNP, CMP ####[facility] Inelfxjqie007[address] [place], [place] [address]Dr. Yilan ChangCreatinine [Mass/Vol]1.31 mg/dL Critically high0.55-1.02The [facility] HospitalComment on above:Performed By: #### BNP, CMP ####[facility] Aabmzrlmlz59[address] [place], [place] [address]Dr. Yilan ChangEGFR-AF BHIEHOAP11 mL/min/1.31z2Pegnjsiois low>=60The [facility] HospitalComment on above:Performed By: #### BNP, CMP ####[facility] Qcdcssrujg606[address] [place], [place] [address]Dr. Yilan ChangEGFR- NON AF NXHTBGKJ40 mL/min/1.28z0Lcdbkznvbf low>=60The [facility] HospitalComment on above:Performed By: #### BNP, CMP ####[facility] Gdcduwwcng688[address] [place], [place] [address]Dr. Yilan ChangGlobulin (S) [Mass/Vol]3.0 g/dL NormalThe [facility] HospitalComment on above:Performed By: #### BNP, CMP ####[facility] Olvgzhidbj220[address] [place], [place] [address]Dr. Yilan ChangGlucose [Mass/Vol]82 mg/fXOxksuh87-188Lou [facility] HospitalComment on above:Performed By: #### BNP, CMP ####[facility] Atuzokvdvw935[address] [place], [place] [address]Dr. Selenalan ChangPotassium [Moles/Vol]4.0 mmol/L Normal3.5-5.1The [facility] HospitalComment on above:Performed By: #### BNP, CMP ####[facility] Gnmptfofdz37[address] [place] [address]Dr. Yilan ChangProtein [Mass/Vol]5.8 g/dLCritically low6.4-8.2The [facility] Comment on above:Performed By: #### BNP, CMP ####[facility] Wkrzoyuodf[address] [place], [place] [address]Dr. Yilan ChangSodium [Moles/Vol]130 mmol/LCritically whv362-488Jea [facility] HospitalComment on above: Performed By: #### BNP, CMP ####[facility] Lpzvlgdtmh[address] [place], [place] [address]Dr. Seelnalan ChangUrea nitrogen [Mass/Vol]19.0 mg/dL Critically high7.0-18.0The [facility] HospitalComment on above:Performed By: #### BNP, CMP ####[facility] Ygptvtyaui50[address] [place], [place] [address]Dr. Yilan ChangUrea nitrogen/Creatinine [Mass ratio]14.5 mg/mgNormalThe [facility] HospitalComment on above:Performed By: #### BNP, CMP ####[facility] Ihumwiveki498[address] [place], [place] [address]Dr. Airam TripathiBNPon 03-75-5173Dfnvjchxgpl peptide B (Bld) [Mass/Vol]2510.0 pg/mLCritically high <=900.0The [facility] HospitalComment on above:Performed By: #### BNP, CMP ####[facility] Mhrmlurtpi8[address] [place], [place] [address]Dr. Airam TripathiCBC AUTO DIFFon 40-45-2947USFV #0.0 103/ulNormal0.0-0.1The [facility] HospitalComment on above:Performed By: #### CBC ####[facility] Bgsyboveiq250[address] [place], [place] [address]Dr.Yilan ChangBasophils/100 WBC (Bld)0.4 %Normal0.2-2.0The [facility] HospitalComment on above:Performed By: #### CBC ####[facility] Txcfmtkhra[address] [place] [address]Dr.Yilan ChangEO #0.0 103/ulNormal0.0-0.7The [facility] HospitalComment on above:Performed By: #### CBC ####[facility] Saxruecdlz[address] [place], [place] [address]Dr.Yilan ChangEosinophils/100 WBC (Bld)0.3 %Critically low0.9-7.0The [facility] HospitalComment on above:Performed By: #### CBC ####[facility] Ogkvzvlwmp2101[address] [place], [place] [address]Dr. Yilan ChangErythrocyte distribution width (RBC) [Ratio]13.6 %Vumjhs57.0-15.0The [facility] HospitalComment on above:Performed By: #### CBC ####[facility] Woldmkbtpz8524[address] [place], [place] [address]Dr.Selenalan ChangHematocrit (Bld) [Volume fraction]28.9 %Critically low36.0-48.0The [facility] HospitalComment on above:Performed By: #### CBC ####[facility] Rlukfgvoyg9[address] [place], [place] [address]Dr.Selenalan ChangHemoglobin (Bld) [Mass/Vol]8.9 g/dL Critically low12.0-16.0The [facility] HospitalComment on above:Performed By: #### CBC ####[facility] Jxmmlovmcx076[address] [place], [place] [address]Dr. Yilan ChangIG #0.10 10e3/ulCritically high0.00-0.03The [facility] HospitalComment on above:Performed By: #### CBC ####[facility] Vdfonarrei[address] [place], [place] [address]Dr.Yilan ChangIG %1.3 %Critically high0.0-0.5The [facility] HospitalComment on above:Performed By: #### CBC ####[facility] Kmsgtuokzb[address] [place] [address]Dr.Airam TripathiLYMPH #0.7 103/ulCritically low1.2-3.8The [facility] HospitalComment on above:Performed By: #### CBC ####[facility] Nmrtvavzri70[address] [place] [address]Dr.Airam TripathiLymphocytes/100 WBC (Bld)8.1 %Critically low20.5-60.0The [facility] HospitalComment on above:Performed By: #### CBC ####[facility] Nezymqudvs77[address] [place] [address]Dr.Airam TripathiMANUAL DIFF REQ NONormalThe [facility] HospitalComment on above:Performed By: #### CBC ####[facility] Oggpefbfsz9[address] [place] [address]Dr. Airam TripathiMCH (RBC) [Entitic mass]29.4 hiOvxkya17.7-34.0The [facility] Comment on above:Performed By: #### CBC ####[facility] Vkwgjrvazm[address] [place], [place] [address]Dr.Airam TripathiMCHC (RBC) [Mass/Vol]30.8 g/dL Macihx88.9-35.2The [facility] HospitalComment on above:Performed By: #### CBC ####[facility] Sbxllkvzoh89[address] [place] [address]Dr. Airam TripathiMCV (RBC) [Entitic vol]95.4 fNTvxsty79.0-99.0The [facility] Comment on above:Performed By: #### CBC ####[facility] Mivrrmiads48[address] [place] [address]Dr.Airam TripathiMONO #0.3 103/ulNormal0.3-0.[address] [facility] HospitalComment on above:Performed By: #### CBC ####[facility] Lyyorqztnr624[address] [place], [place] [address]Dr.Airam Tripathi Monocytes/100 WBC (Bld)3.1 %Normal1.7-12.0The [facility] HospitalComment on above: Performed By: #### CBC ####[facility] Bvkffedsqb34[address] [place] [address]Dr.Selenaneil DeuceNEUT #7.0 103/ulCritically high1.4-6.[address] [facility] HospitalComment on above:Performed By: #### CBC ####[facility] Gysluigkwq8[address] [place] [address]Dr.Airam Tripathi Neutrophils/100 WBC (Bld)86.8 %Critically high43.0-75.0The [facility] Comment on above:Performed By: #### CBC ####[facility] Xsndvpqyis08[address] [place], [place] [address]Dr.Airam TripathiPlatelet mean volume (Bld) [Entitic vol]8.3 fLCritically low9.5-13.5The [facility] HospitalComment on above: Performed By: #### CBC ####[facility] Odocdgcfzt[address] [place], [place] [address]Dr.Airam ZpwzwFOG830 103/omKjybjp607-063Dve [facility] HospitalComment on above:Performed By: #### CBC ####[facility] Yyrttruqco[address] [place], [place] [address]Dr.Airam TripathiRBC3.03 106/ul Critically low4.20-5.40The [facility] HospitalComment on above:Performed By: #### CBC ####[facility] Eagstsfbnb[address] [place], [place] [address]Dr. Airam ChangWBC8.0 103/ulNormal4.0-11.0The [facility] HospitalComment on above: Performed By: #### CBC ####[facility] Hrxkazgfpj[address] [place], [place] [address]Dr.Airam TripathiPROF 14(COMP METB)on 87-16-3465Xudtdxg [Mass/Vol]2.8 g/dLCritically low3.4-5.0The [facility] HospitalComment on above: Performed By: #### BNP, CMP ####[facility] Xanzxftqld[address] [place], [place] [address]Dr. Airam TripathiAlbumin/Globulin [Mass ratio]0.9 {ratio}NormalThe [facility] HospitalComment on above:Performed By: #### BNP, CMP ####[facility] Lbtwmlsgib[address] [place], [place] [address]Dr. Yilan ChangALP [Catalytic activity/Vol]136 U/LCritically vgli82-521Roo [facility] HospitalComment on above:Performed By: #### BNP, CMP ####[facility] Ohjcvueokw[address] [place], [place] [address]Dr. Yilan ChangALT [Catalytic activity/Vol]17 U/JKwmglo87-34Sbq [facility] HospitalComment on above:Performed By: #### BNP, CMP ####[facility] Ayubbtkzgz[address] [place], [place] [address]Dr. Yilan ChangAnion gap [Moles/Vol]12.9 mmol/LNormalThe [facility] HospitalComment on above:Performed By: #### BNP, CMP ####[facility] [address]oyxjvsvvi[address] [place], [place] [address]Dr. Yilan ChangAST [Catalytic activity/Vol]24 U/GYfpojk38-85Yqf [facility] HospitalComment on above:Performed By: #### BNP, CMP ####[facility] Bcopwnvjgm8[address] [place], [place] [address]Dr. Yilan ChangBilirubin [Mass/Vol]0.2 mg/dLNormal0.2-1.0The [facility] HospitalComment on above:Performed By: #### BNP, CMP ####[facility] Cuskpucgoq[address] [place], [place] [address]Dr. Yilan ChangCalcium [Mass/Vol]8.7 mg/dLNormal8.5-10.1The [facility] HospitalComment on above:Performed By: #### BNP, CMP ####[facility] Zvzknguuub[address] [place], [place] [address]Dr. Yilan ChangChloride [Moles/Vol]102 mmol/LNormal 98-107The [facility] HospitalComment on above:Performed By: #### BNP, CMP ####[facility] Lnkucompin15[address] [place], [place] [address]Dr. Yilan ChangCO2 [Moles/Vol]23.8 mmol/MPftoez97.0-32.0The [facility] HospitalComment on above:Performed By: #### BNP, CMP ####[facility] Bzxruvjlcb[address] [place], [place] [address]Dr. Yilan ChangCreatinine [Mass/Vol]1.08 mg/dL Critically high0.55-1.02The [facility] HospitalComment on above:Performed By: #### BNP, CMP ####[facility] Oxlvyntsdt[address] [place], [place] [address]Dr. Yilan ChangEGFR-AF CUBAN>60Normal>=60The [facility] HospitalComment on above:Performed By: #### BNP, CMP ####[facility] Tsjjkovhgf[address] [place], [place] [address]Dr. Yilan ChangEGFR-NON AF YMSNGHSD14 mL/min/1.71w7Ofurzrvutv low>=60The [facility] HospitalCommclaren flint on above:Performed By: #### BNP, CMP ####[facility] Anvmnxhsvm[address] [place], [place] [address]Dr. Yilan ChangGlobulin (S) [Mass/Vol]3.2 g/dLNormalThe [facility] HospitalCommclaren flint on above:Performed By: #### BNP, CMP ####[facility] Pncpmjsrkc[address] [place], [place] [address]Dr. Yilan ChangGlucose [Mass/Vol]99 mg/jOQkojtu86-770Mpt [facility] HospitalComment on above:Performed By: #### BNP, CMP ####[facility] Qnpeklzqof04[address] [place], [place] [address]Dr. Yilan ChangPotassium [Moles/Vol]4.7 mmol/LNormal3.5-5.1The [facility] HospitalCommclaren flint on above:Performed By: #### BNP, CMP ####[facility] Yyxtthmpei89[address] [place], [place] [address]Dr. Selenalan Tripathi Protein [Mass/Vol]6.0 g/dLCritically low6.4-8.2The [facility] HospitalComment on above:Performed By: #### BNP, CMP ####[facility] [address] [place] [address]Dr. Yilan ChangSodium [Moles/Vol]134 mmol/LCritically zyn215-713Acc [facility] on above:Performed By: #### BNP, CMP ####[facility] Peslxozeye[address] [place] [address]Dr. Yilan ChangUrea nitrogen [Mass/Vol]19.0 mg/dLCritically high7.0-18.0The [facility] HospitalComment on above:Performed By: #### BNP, CMP ####[facility] Dfzqqecewa229[address] [place], [place] [address]Dr. Yilan ChangUrea nitrogen/Creatinine [Mass ratio]17.6 mg/mgNoCleveland Clinic Fairview HospitalComment on above:Performed By: #### BNP, CMP ####[facility] Ypfrynbkbh3259[address] [place], [place] [address]Dr. Yilan ChangPROTIMEon 55-27-0106JUN Coag (PPP) [Relative time]1.00 {INR}NormalCleveland Clinic Fairview Hospital on above:Performed By: #### PT ####[facility] Wzdnbbpsoq[address] [place], [place] [address]Dr. Yilan ChangINR GUIDELINESSEE BELOWMarion HospitalComment on above:Result Comment: DESIRED INR: 2.0 - 3.0 CONDITIONS NOT LISTED BELOW 2.5 - 3.5 FOR PROSTHETIC HEART VALVE REPLACEMENT 2.5 - 3.5 RECURRENT THROMBOSIS Performed By: #### PT ####[facility] Cpznahific9[address] [place], [place] [address]Dr. Yilan ChangPT Coag (PPP) [Time]10.8 sNormal 9.0-11.6The [facility] HospitalComment on above:Performed By: #### PT ####[facility] Evsfnisffq8[address] [place], [place] [address]Dr. Yilan ChangPTT on 97-74-1144kETR Coag (Bld) [Time]27.2 rZhntne95.3-36.2The [facility] Comment on above:Performed By: #### PTT ####[facility] Siixwwxtri[address] [place] [address]Dr.Airam ChangBNPon 79-38-6249Loxlejahgyl peptide B (Bld) [Mass/Vol]2293.0 pg/mLCritically high<=900.0The [facility] HospitalComment on above:Performed By: #### CMP, BNP ####[facility] Mhqmmgrbzb053[address] [place], [place] [address]Dr. Airam ChangCBC AUTO DIFF on 15-42-9229TJQP #0.0 103/ulNormal0.0-0.1The [facility] HospitalComment on above: Performed By: #### CBC ####[facility] Akuaauvdab[address] [place], [place] [address]Dr.Airam ChangBasophils/100 WBC (Bld)0.4 %Normal 0.2-2.0The [facility] HospitalComment on above:Performed By: #### CBC ####[facility] Msqrodqkob553[address] [place], [place] [address]Dr.Selenalan ChangEO # 0.2 103/ulNormal0.0-0.7The [facility] HospitalComment on above:Performed By: #### CBC ####[facility] Xpmdlccoem7109[address] [place], [place] [address]Dr. Airam ChangEosinophils/100 WBC (Bld)3.0 %Normal0.9-7.0The [facility] Comment on above:Performed By: #### CBC ####[facility] Gynjqjcuke295[address] [place], [place] [address]Dr.Airam ChangErythrocyte distribution width (RBC) [Ratio]13.3 %Tyxbue04.0-15.0The [facility] HospitalComment on above: Performed By: #### CBC ####[facility] Cvpusthmse9[address] [place], [place] [address]Dr.Airam ChangHematocrit (Bld) [Volume fraction]26.2 % Critically low36.0-48.0The [facility] HospitalComment on above:Performed By: #### CBC ####[facility] Egmetsdyml[address] [place] [address]Dr. Airam TripathiHemoglobin (Bld) [Mass/Vol]8.3 g/dLCritically low12.0-16.0The [facility] HospitalComment on above:Performed By: #### CBC ####[facility] Wjqxkvdyvg330[address] [place], [place] [address]Dr.Selenalan ChangIG #0.08 10e3/ulCritically high0.00-0.03The [facility] HospitalComment on above:Performed By: #### CBC ####[facility] Mibeewiwtk053[address] [place], [place] [address]Dr.Airam ChangIG %1.1 %Critically high0.0-0.5The [facility] HospitalComment on above:Performed By: #### CBC ####[facility] Sqkjosvdxm085[address] [place], [place] [address]Dr.Airam ChangLYMPH #1.2 103/ulNormal1.2-3.8The [facility] HospitalComment on above:Performed By: #### CBC ####[facility] Ujjfsmpens175[address] [place], [place] [address]Dr.Airam TripathiLymphocytes/100 WBC (Bld)17.3 %Critically low20.5-60.0The [facility] HospitalComment on above: Performed By: #### CBC ####[facility] Qqoyimvhyu970[address] [place], [place] [address]Dr.Airam TripathiMANUAL DIFF REQNONormalThe [facility] HospitalComment on above:Performed By: #### CBC ####[facility] Zehuzwjwfd0913[address] [place], [place] [address]Dr.Airam TripathiMCH (RBC) [Entitic mass]30.3 kbMjglkk96.7-34.0The [facility] HospitalComment on above: Performed By: #### CBC ####[facility] Pxsyfthrwe0209[address] [place], [place] [address]Dr.Airam TripathiMCHC (RBC) [Mass/Vol]31.7 g/dLNormal 29.9-35.2The [facility] HospitalComment on above:Performed By: #### CBC ####[facility] Mdzlcnzyeh7[address] [place] [address]Dr. iAram TripathiMCV (RBC) [Entitic vol]95.6 tSIsukji27.0-99.0The [facility] Comment on above:Performed By: #### CBC ####[facility] Ccdjosugzc336[address] [place], [place] [address]Dr.Airam TripathiMONO #0.5 103/ulNormal0.3-0.[address] [facility] HospitalComment on above:Performed By: #### CBC ####[facility] Drznikupit189[address] [place], [place] [address]Dr.Airam Tripathi Monocytes/100 WBC (Bld)7.1 %Normal1.7-12.0The [facility] HospitalComment on above: Performed By: #### CBC ####[facility] Bwksfkqsrf9416[address] [place], [place] [address]Dr.Airam TripathiNEUT #5.0 103/ulNormal1.4-6.5The [facility] HospitalComment on above:Performed By: #### CBC ####[facility] Bxwnecoeta777[address] [place], [place] [address]Dr.Airam TripathiNeutrophils/100 WBC (Bld)71.1 %Mypasx36.0-75.0The [facility] HospitalComment on above:Performed By: #### CBC ####[facility] Wowkbldmof060[address] [place], [place] [address]Dr.Airam TripathiPlatelet mean volume (Bld) [Entitic vol]8.2 fLCritically low 9.5-13.5The [facility] HospitalComment on above:Performed By: #### CBC ####[facility] Boonngqezo480[address] [place], [place] [address]Dr. Selenalan WtjdoUIH047 103/luCquuaq798-834Qqu [facility] HospitalComment on above: Performed By: #### CBC ####[facility] Xtozntwwfh524[address] [place], [place] [address]Dr.Selenaneil TripathiRBC2.74 106/ulCritically low4.20-5.40The [facility] HospitalComment on above:Performed By: #### CBC ####[facility] Cwuoobnwob[address] [place] [address]Dr.Yilan ChangWBC7.1 103/ul Normal4.0-11.0The [facility] HospitalComment on above:Performed By: #### CBC ####[facility] Dddfbeeoyw[address] [place] [address]Dr. Selenalan ChangCTA CHEST WO W CONon 63-92-3671YLS CHEST WO W CONNormalThe [facility] HospitalPROF 14(COMP METB)on 99-91-4462Uhmtwmt [Mass/Vol]2.6 g/dLCritically low 3.4-5.0The [facility] HospitalComment on above:Performed By: #### CMP, BNP ####[facility] Imneokbsnx4519[address] [place], [place] [address]Dr. Airam ChangAlbumin/Globulin [Mass ratio]0.8 {ratio}NormalThe [facility] Comment on above:Performed By: #### CMP, BNP ####[facility] Cnlphwlsav026[address] [place], [place] [address]Dr. Selenalan ChangALP [Catalytic activity/Vol]130 U/LCritically xmmy53-524Wqr [facility] HospitalComment on above: Performed By: #### CMP, BNP ####[facility] Xufxkkdtqu559[address] [place], [place] [address]Dr. Airam ChangALT [Catalytic activity/Vol]12 U/L Critically syz04-53Nyv [facility] HospitalComment on above:Performed By: #### CMP, BNP ####[facility] Tpllcwygdv95[address] [place], [place] [address]Dr. Airam TripathiAnion gap [Moles/Vol]11.8 mmol/LNormalThe [facility] HospitalComment on above:Performed By: #### CMP, BNP ####[facility] Keuebzplig270[address] [place], [place] [address]Dr. Yilan ChangAST [Catalytic activity/Vol]22 U/L Bkjlxx41-06Whv [facility] HospitalComment on above:Performed By: #### CMP, BNP ####[facility] Ivqclryefd[address] [place] [address]Dr. Yilan ChangBilirubin [Mass/Vol]0.2 mg/dLNormal0.2-1.0The [facility] Comment on above:Performed By: #### CMP, BNP ####[facility] Dsipclbybx[address] [place], [place] [address]Dr. Yilan ChangCalcium [Mass/Vol]8.0 mg/dLCritically low8.5-10.1The [facility] HospitalComment on above: Performed By: #### CMP, BNP ####[facility] Eluksumvus[address] [place], [place] [address]Dr. Yilan ChangChloride [Moles/Vol]104 mmol/LNormal 98-107The [facility] HospitalComment on above:Performed By: #### CMP, BNP ####[facility] Yhduxvtnoc[address] [place], [place] [address]Dr. Yilan ChangCO2 [Moles/Vol]22.8 mmol/TRuaspz05.0-32.0The [facility] HospitalComment on above:Performed By: #### CMP, BNP ####[facility] Gzhhtgtuun6913[address] [place], [place] [address]Dr. Yilan ChangCreatinine [Mass/Vol]1.07 mg/dL Critically high0.55-1.02The [facility] HospitalComment on above:Performed By: #### CMP, BNP ####[facility] Fgmedvqnea755[address] [place], [place] [address]Dr. Yilan ChangEGFR-AF CUBAN>60Normal>=60The [facility] HospitalComment on above:Performed By: #### CMP, BNP ####[facility] Smupmherym1219[address] [place], [place] [address]Dr. Yilan ChangEGFR-NON AF MKBXXNRE71 mL/min/1.19g6Jgkxdqdlab low>=60The [facility] HospitalCommclaren flint on above:Performed By: #### CMP, BNP ####[facility] Jgengffedg859[address] [place], [place] [address]Dr. Yilan ChangGlobulin (S) [Mass/Vol]3.1 g/dLNormalThe [facility] HospitalComment on above:Performed By: #### CMP, BNP ####[facility] Hnuggdueqn679[address] [place], [place] [address]Dr. Yilan ChangGlucose [Mass/Vol]85 mg/dFUaorul33-216Asl [facility] HospitalComment on above:Performed By: #### CMP, BNP ####[facility] Pcujkhqyvj4912[address] [place], [place] [address]Dr. Yineil ChangPotassium [Moles/Vol]4.6 mmol/LNormal3.5-5.1The [facility] HospitalComment on above:Performed By: #### CMP, BNP ####[facility] Fyhvlsquno135[address] [place], [place] [address]Dr. Yilan Tripathi Protein [Mass/Vol]5.7 g/dLCritically low6.4-8.2The [facility] HospitalComment on above:Performed By: #### CMP, BNP ####[facility] Elizdijuxj9[address] [place], [place] [address]Dr. Yilan ChangSodium [Moles/Vol]134 mmol/LCritically dcn261-962Tyi [facility] HospitalComment on above:Performed By: #### CMP, BNP ####[facility] Elokqppzpj20[address] [place], [place] [address]Dr. Yilan ChangUrea nitrogen [Mass/Vol]24.0 mg/dLCritically high7.0-18.0The [facility] HospitalComment on above:Performed By: #### CMP, BNP ####[facility] Xwywggeigg332[address] [place], [place] [address]Dr. Yilan ChangUrea nitrogen/Creatinine [Mass ratio]22.4 mg/mgNormalThe [facility] HospitalComment on above:Performed By: #### CMP, BNP ####[facility] Wtnspsoxmt075[address] [place], [place] [address]Dr. Selenalan ChangBNPon 71-84-5704Rcejeqtlalp peptide B (Bld) [Mass/Vol]934.0 pg/mLCritically high<=900.0The [facility] HospitalComment on above:Performed By: #### CMP, BNP ####[facility] Jxzygtckdl258[address] [place], [place] [address]Dr. Airam TripathiCBC AUTO DIFFon 79-43-2289OVWK # 0.0 103/ulNormal0.0-0.1[facility] Hospitalment on above:Performed By: #### CBC ####[facility] Qsxnqamtqp867404 [address] [place], [place] [address]Dr. Airam ChangBasophils/100 WBC (Bld)0.2 %Normal0.2-2.0The [facility] HospitalComment on above:Performed By: #### CBC ####[facility] Zjkuxhawhg644[address] [place], [place] [address]Dr.Selenalan ChangEO #0.1 103/ulNormal0.0-0.7The [facility] HospitalComment on above:Performed By: #### CBC ####[facility] Rvhxavxcum3516[address] [place], [place] [address]Dr.Airam ChangEosinophils/100 WBC (Bld)2.1 %Normal0.9-7.0The [facility] HospitalComment on above:Performed By: #### CBC ####[facility] Junsuwozfa293[address] [place], [place] [address]Dr.Airam ChangErythrocyte distribution width (RBC) [Ratio]12.9 %Normal 11.0-15.0The [facility] on above:Performed By: #### CBC ####[facility] Iqxqvyrotd716[address] [place], [place] [address]Dr. Airam ChangHematocrit (Bld) [Volume fraction]24.9 %Critically low36.0-48.0The [facility] HospitalComment on above:Performed By: #### CBC ####[facility] Mmtbmcsdrl675[address] [place], [place] [address]Dr.Airam ChangHemoglobin (Bld) [Mass/Vol]7.9 g/dLCritically low12.0-16.0The [facility] HospitalComment on above:Performed By: #### CBC ####[facility] Yhmwjvyzlj340[address] [place], [place] [address]Dr.Airam ChangIG #0.05 10e3/ulCritically high0.00-0.[address] [facility] HospitalComment on above:Performed By: #### CBC ####[facility] Sgorqtcjqq446[address] [place], [place] [address]Dr.Airam DeuceIG % 0.8 %Critically high0.0-0.5The [facility] HospitalComment on above:Performed By: #### CBC ####[facility] Krlunoynun839[address] [place], [place] [address]Dr.Airam DeuceLYMPH #0.9 103/ulCritically low1.2-3.8The [facility] Comment on above:Performed By: #### CBC ####[facility] Ccqqxxzvcf89220[address] [place], [place] [address]Dr.Airam TripathiLymphocytes/100 WBC (Bld)13.7 %Critically low20.5-60.0The [facility] HospitalComment on above:Performed By: #### CBC ####[facility] Ymtebutbmn313[address] [place], [place] [address]Dr.Airam TripathiMANUAL DIFF REQNONormalThe [facility] HospitalComment on above: Performed By: #### CBC ####[facility] Tdegtcyrnm577[address] [place], [place] [address]Dr.Airam TripathiK[facility] (RBC) [Entitic mass]30.2 pgNormal 26.7-34.0[facility] SystemComment on above:Performed By: #### CBC ####[facility] Ifzojfnqwc202[address] [place], [place] [address]Dr. Airam TripathiHC (RBC) [Mass/Vol]31.7 g/kQElfucw26.9-35.2[facility] Comment on above:Performed By: #### CBC ####[facility] Fsppeamyaf177[address] [place], [place] [address]Dr.Airam TripathiV (RBC) [Entitic vol]95.0 fL Jejxqz84.0-99.0The [facility] HospitalComment on above:Performed By: #### CBC ####[facility] Vnenotffdn[address] [place], [place] [address]Dr. Yilan ChangMONO #0.4 103/ulNormal0.3-0.8The [facility] HospitalComment on above: Performed By: #### CBC ####[facility] Bpmiffdupo[address] [place] [address]Dr.Selenalan ChangMonocytes/100 WBC (Bld)6.7 %Normal 1.7-12.0The [facility] HospitalComment on above:Performed By: #### CBC ####[facility] Oqgfkkecrh[address] [place], [place] [address]Dr. Selenalan ChangNEUT #5.0 103/ulNormal1.4-6.5The [facility] HospitalComment on above: Performed By: #### CBC ####[facility] Jdelajzzaw026[address] [place], [place] [address]Dr.Selenalan ChangNeutrophils/100 WBC (Bld)76.5 % Critically high43.0-75.0The [facility] HospitalComment on above:Performed By: #### CBC ####[facility] Jzruvguibm50[address] [place], [place] [address]Dr. Airam ChangPlatelet mean volume (Bld) [Entitic vol]8.4 fLCritically low9.5-13.[address] [facility] HospitalComment on above:Performed By: #### CBC ####[facility] Kbmylakqxy065[address] [place], [place] [address]Dr.Airam YvqtgEBP187 103/uoFspmzw223-037Vjr [facility] HospitalComment on above:Performed By: #### CBC ####[facility] Pnjbexejjn024[address] [place], [place] [address]Dr. Airam ChangRBC2.62 106/ulCritically low4.20-5.40The [facility] HospitalComment on above:Performed By: #### CBC ####[facility] Wximqqnpxa9389[address] [place], [place] [address]Dr.Selenalan ChangWBC6.6 103/ulNormal4.0-11.0The [facility] HospitalComment on above:Performed By: #### CBC ####[facility] Jhkuvwfnmu89[address] [place], [place] [address]Dr.Airam TripathiOSMOLALITYon 74-34-1755Kjvbpxzeab [Osmolality]269 mosm/kgCritically fhy507-396Gtx [facility] HospitalComment on above:Performed By: #### OSMO ####[facility] Atelrtmukr[address] [place] [address]Dr. Airam DeucePROF 14(COMP METB)on 20-36-2141Bmnhiyu [Mass/Vol]2.5 g/dLCritically low3.4-5.0The [facility] HospitalComment on above:Performed By: #### CMP, BNP ####[facility] Plfxlkbnsh9[address] [place] [address]Dr. Airam Tripathi Albumin/Globulin [Mass ratio]0.9 {ratio}NormalThe [facility] HospitalComment on above:Performed By: #### CMP, BNP ####[facility] Bdhoyenbvi[address] [place], [place] [address]Dr. Airam TripathiALP [Catalytic activity/Vol]128 U/L Critically afuu46-083Wtk [facility] HospitalComment on above:Performed By: #### CMP, BNP ####[facility] Mivxtwbziz309[address] [place], [place] [address]Dr. Airam TripathiALT [Catalytic activity/Vol]14 U/JUkbdgx62-13Fdg [facility] HospitalComment on above:Performed By: #### CMP, BNP ####[facility] Ikjlcwbcyh630[address] [place], [place] [address]Dr. Airam TripathiAnion gap [Moles/Vol]10.4 mmol/LNormalThe [facility] HospitalComment on above:Performed By: #### CMP, BNP ####[facility] Sheelpkiep694[address] [place], [place] [address]Dr. Airam ChangAST [Catalytic activity/Vol]23 U/IZwjfaw23-16Kmq [facility] HospitalComment on above:Performed By: #### CMP, BNP ####[facility] Jtomrpnbma[address] [place], [place] [address]Dr. Airam Tripathi Bilirubin [Mass/Vol]0.2 mg/dLNormal0.2-1.0The [facility] HospitalComment on above: Performed By: #### CMP, BNP ####[facility] Tuemfpfsiw831[address] [place], [place] [address]Dr. Yilan ChangCalcium [Mass/Vol]7.4 mg/dLCritically low8.5-10.1The [facility] HospitalComment on above:Performed By: #### CMP, BNP ####[facility] Uguojvormg[address] [place], [place] [address]Dr. Yilan ChangChloride [Moles/Vol]99 mmol/KJvijli74-355Rva [facility] HospitalComment on above:Performed By: #### CMP, BNP ####[facility] Sqfznctrou727[address] [place], [place] [address]Dr. Yilan ChangCO2 [Moles/Vol]24.1 mmol/LNormal 21.0-32.0The [facility] HospitalComment on above:Performed By: #### CMP, BNP ####[facility] Twpbcsqxwj203[address] [place], [place] [address]Dr. Yilan ChangCreatinine [Mass/Vol]1.45 mg/dLCritically high0.55-1.02The [facility] HospitalComment on above:Performed By: #### CMP, BNP ####[facility] Bdnbqvpnci9[address] [place], [place] [address]Dr. Yilan ChangEGFR-AF QCYRSAJC64 mL/min/1.65k5Odlvljpkms low>=60The [facility] HospitalComment on above: Performed By: #### CMP, BNP ####[facility] Usthlnepus[address] [place], [place] [address]Dr. Yilan ChangEGFR-NON AF NYKOVGSJ36 mL/min/1.73m2 Critically low>=60The [facility] HospitalComment on above:Performed By: #### CMP, BNP ####[facility] Oqctooharh[address] [place], [place] [address]Dr. Yilan ChangGlobulin (S) [Mass/Vol]2.8 g/dLNormalThe [facility] HospitalComment on above:Performed By: #### CMP, BNP ####[facility] Ezakxawdtj297[address] [place], [place] [address]Dr. Yilan ChangGlucose [Mass/Vol]82 mg/dLNormal 74-106The [facility] HospitalComment on above:Performed By: #### CMP, BNP ####[facility] Deuprwrmra[address] [place] [address]Dr. Yilan ChangPotassium [Moles/Vol]4.5 mmol/LNormal3.5-5.1The [facility] Comment on above:Performed By: #### CMP, BNP ####[facility] Fuqbiydmfj[address] [place], [place] [address]Dr. Yilan ChangProtein [Mass/Vol]5.3 g/dLCritically low6.4-8.2The [facility] HospitalComment on above: Performed By: #### CMP, BNP ####[facility] Aumousywxd[address] [place], [place] [address]Dr. Yilan ChangSodium [Moles/Vol]129 mmol/LCritically fqh292-750Zhi [facility] HospitalComment on above:Performed By: #### CMP, BNP ####[facility] Ehclrcnsuq[address] [place], [place] [address]Dr. Yilan ChangUrea nitrogen [Mass/Vol]35.0 mg/dLCritically high7.0-18.0The [facility] HospitalComment on above:Performed By: #### CMP, BNP ####[facility] Knvhgeirnq[address] [place], [place] [address]Dr. Yilan ChangUrea nitrogen/Creatinine [Mass ratio]24.1 mg/mgNormalThe [facility] HospitalComment on above:Performed By: #### CMP, BNP ####[facility] Aouecpuguz[address] [place], [place] [address]Dr. Yilan ChangT3, TOTAL (TRIIODOTHYRONINE)on 70-83-5383F8, CXAPM105 ng/eLQxlgqk45-247Tvk [facility] HospitalComment on above: Performed By: #### K5DKUTU ####[facility] Krdncjoyex639[address] [place], [place] [address]Dr. Yilan ChangBNPon 07-89-4617Pxpfozdgqsh peptide B (Bld) [Mass/Vol]1024.0 pg/mLCritically high<=900.0The [facility] HospitalComment on above:Performed By: #### BNP, CMP ####[facility] Sfdzxhxkwt103[address] [place], [place] [address]Dr. Selenaneil DeuceCARDIAC CONSUELO 3-6on 55-61-8159LA [Catalytic activity/Vol]116 U/YUsgshl88-026Hae [facility] HospitalComment on above:Performed By: #### CMREP ####[facility] Lxelaexosq548[address] [place], [place] [address]Dr. Airam TripathiCK.MB [Mass/Vol]ng/mLNormal<=3.60The [facility] Centerment on above:Performed By: #### CMREP ####[facility] Bepgretzmh[address] [place], [place] [address]Dr. Selenaneil TripathiHSTROP6.0 pg/mLNormal4.0-51.3The [facility] HospitalComment on above:Result Comment: CUT-OFF POINTS HAVE BEEN ESTABLISHED BASED ON THE FOURTH UNIVERSAL DEFINITIONS OF MY OCARDIALINFARCTION. THE UPPER REFERENCE LIMIT (URL) OF TROPONIN, DEFINED THE 99TH PERCENTILE OFcTnI DISTRIBUTION IN A REFERENCE POPULATION, HAS BEEN CONFIRMED THE DECISION THRESHOLDFOR [place] DIAGNOSIS.Performed By: #### CMREP ####[facility] Agttipeyye[address] [place], [place] [address]Dr. Airam TripathiCBC AUTO DIFFon 98-52-9036LJLM #0.0 103/ulNormal0.0-0.1The [facility] HospitalComment on above:Performed By: #### CBC ####[facility] Micajduxal9[address] [place], [place] [address]Dr.Airam DeuceBasophils/100 WBC (Bld)0.3 %Normal0.2-2.0The [facility] HospitalCommclaren flint on above:Performed By: #### CBC ####[facility] Afdntyottu[address] [place], [place] [address]Dr.Airam ChangEO #0.2 103/ulNormal0.0-0.7The [facility] HospitalCommclaren flint on above:Performed By: #### CBC ####[facility] Hvbbcevhja[address] [place] [address]Dr.Airam ChangEosinophils/100 WBC (Bld)2.0 %Normal 0.9-7.0The [facility] HospitalComment on above:Performed By: #### CBC ####[facility] Uenrbecpcc67[address] [place], [place] [address]Dr.Airam Tripathi Erythrocyte distribution width (RBC) [Ratio]12.8 %Vjhndl51.0-15.0The [facility] HospitalComment on above:Performed By: #### CBC ####[facility] Crhillxpio813[address] [place], [place] [address]Dr.Airam ChangHematocrit (Bld) [Volume fraction]27.4 %Critically low36.0-48.0The [facility] HospitalComment on above:Performed By: #### CBC ####[facility] Ilhefgiwxs56[address] [place], [place] [address]Dr.Airam ChangHemoglobin (Bld) [Mass/Vol]8.7 g/dL Critically low12.0-16.0The [facility] HospitalComment on above:Performed By: #### CBC ####[facility] Latvcftuaw[address] [place], [place] [address]Dr. Airam ChangIG #0.11 10e3/ulCritically high0.00-0.03The [facility] HospitalComment on above:Performed By: #### CBC ####[facility] Ddfuxhmsyl194[address] [place], [place] [address]Dr.Airam ChangIG %1.1 %Critically high0.0-0.5The [facility] HospitalComment on above:Performed By: #### CBC ####[facility] Bemuqidrgc486[address] [place], [place] [address]Dr.Airam ChangLYMPH #0.9 103/ulCritically low1.2-3.8The [facility] HospitalComment on above:Performed By: #### CBC ####[facility] Nldhnyorcs724[address] [place], [place] [address]Dr.Airam ChangLymphocytes/100 WBC (Bld)9.7 %Critically low20.5-60.0The [facility] HospitalComment on above:Performed By: #### CBC ####[facility] Aoylcpfuls[address] [place] [address]Dr.Airam TripathiMANUAL DIFF REQ NONormalThe [facility] HospitalComment on above:Performed By: #### CBC ####[facility] Wvtaztlqqf[address] [place] [address]Dr. Airam TripathiH (RBC) [Entitic mass]30.0 qiXsmhpb52.7-34.0The [facility] Comment on above:Performed By: #### CBC ####[facility] Joxylearax[address] [place], [place] [address]Dr.Selenaneil TripathiHC (RBC) [Mass/Vol]31.8 g/dL Zdlgwn35.9-35.2The [facility] HospitalComment on above:Performed By: #### CBC ####[facility] Ocqhgfqdrb[address] [place], [place] [address]Dr. Airam TripathiV (RBC) [Entitic vol]94.5 xXXmziob58.0-99.0The [facility] Comment on above:Performed By: #### CBC ####[facility] Pkphicozqj978[address] [place], [place] [address]Dr.Selenaneil TripathiMONO #0.6 103/ulNormal0.3-0.8 [facility] SystemComment on above:Performed By: #### CBC ####[facility] Unpxduyofb136[address] [place], [place] [address]Dr.Airam Tripathi Monocytes/100 WBC (Bld)5.7 %Normal1.7-12.0The [facility] HospitalComment on above: Performed By: #### CBC ####[facility] Uymcbzhtwb245[address] [place], [place] [address]DrBroderick TripathiNEUT #7.8 103/ulCritically high1.4-6.5 [facility] SystemComment on above:Performed By: #### CBC ####[facility] Syiyfmricu[address] [place], [place] [address]Dr.Airam Tripathi Neutrophils/100 WBC (Bld)81.2 %Critically high43.0-75.0The [facility] Comment on above:Performed By: #### CBC ####[facility] Rwrfgegnnh174[address] [place], [place] [address]Dr.Airam TripathiPlatelet mean volume (Bld) [Entitic vol]8.6 fLCritically low9.5-13.5The [facility] HospitalComment on above: Performed By: #### CBC ####[facility] Xyouwlnjey923[address] [place], [place] [address]Dr.Airam PzraePZS743 103/hjXmxbza819-378Rnd [facility] HospitalComment on above:Performed By: #### CBC ####[facility] Xztwvcjzud4416[address] [place], [place] [address]Dr.Selenaneil ChangRBC2.90 106/ul Critically low4.20-5.40The [facility] HospitalComment on above:Performed By: #### CBC ####[facility] Snwtbpqpbn217[address] [place], [place] [address]Dr. Selenaneil ChangWBC9.6 103/ulNormal4.0-11.0The [facility] HospitalComment on above: Performed By: #### CBC ####[facility] Vlqhrmsmvj397[address] [place], [place] [address]Dr.Selenaneil DeuceOSMOLALITYon 28-97-7023Beprygthxy [Osmolality]273 mosm/kgCritically mma526-333Bsk [facility] HospitalComment on above:Performed By: #### OSMO ####[facility] Ueymlukdxz408[address] [place], [place] [address]Dr. Selenaneil ChangPROF 14(COMP METB)on 27-17-7254Tfvpnem [Mass/Vol]3.2 g/dLCritically low3.4-5.0The [facility] HospitalComment on above: Performed By: #### BNP, CMP ####[facility] Qpaxmvduko276[address] [place], [place] [address]Dr. Airam TripathiAlbumin/Globulin [Mass ratio]1.0 {ratio}NormalThe [facility] HospitalComment on above:Performed By: #### BNP, CMP ####[facility] Hhpkyzjbkl65[address] [place] [id number]. Yilan ChangALP [Catalytic activity/Vol]154 U/LCritically zdqn53-081Kkj [facility] HospitalComment on above:Performed By: #### BNP, CMP ####[facility] Jflgchwkzx59[address] [place] [address]Dr. Yilan ChangALT [Catalytic activity/Vol]17 U/ZDgmzpc08-26Emb [facility] HospitalComment on above:Performed By: #### BNP, CMP ####[facility] Qyjpbkwglw200[address] [place], [place] [address]Dr. Yilan ChangAnion gap [Moles/Vol]12.0 mmol/LNormalThe [facility] HospitalComment on above:Performed By: #### BNP, CMP ####[facility] Okmfgqxhzv[address] [place], [place] [address]Dr. Yilan ChangAST [Catalytic activity/Vol]25 U/QUnflhp08-72Jro [facility] HospitalComment on above:Performed By: #### BNP, CMP ####[facility] Drjumlsgvk989[address] [place], [place] [address]Dr. Yilan ChangBilirubin [Mass/Vol]0.3 mg/dLNormal0.2-1.0The [facility] HospitalCommclaren flint on above:Performed By: #### BNP, CMP ####[facility] Nugdzwedxb2299[address] [place], [place] [address]Dr. Yilan ChangCalcium [Mass/Vol]7.6 mg/dLCritically low8.5-10.1The [facility] HospitalComment on above: Performed By: #### BNP, CMP ####[facility] Yblvzizdpd18[address] [place] [address]Dr. Yilan ChangChloride [Moles/Vol]92 mmol/LCritically mxt17-601Rpy [facility] HospitalComment on above:Performed By: #### BNP, CMP ####[facility] Icelomrsdo775[address] [place], [place] [address]Dr. Yilan ChangCO2 [Moles/Vol]25.2 mmol/YQctynv41.0-32.0The [facility] HospitalComment on above:Performed By: #### BNP, CMP ####[facility] Ksbzdxbsri857[address] [place], [place] [address]Dr. Yilan ChangCreatinine [Mass/Vol]1.83 mg/dL Critically high0.55-1.02The [facility] HospitalComment on above:Performed By: #### BNP, CMP ####[facility] Qsmlkolqwn865[address] [place], [place] [address]Dr. Yilan ChangEGFR-AF VXWXZJKX15 mL/min/1.06h7Icjfppfrjx low>=60The [facility] HospitalComment on above:Performed By: #### BNP, CMP ####[facility] Mjzlawolxy879[address] [place], [place] [address]Dr. Yilan ChangEGFR- NON AF YOCJSOJF69 mL/min/1.60c4Vhugerewew low>=60The [facility] HospitalComment on above:Performed By: #### BNP, CMP ####[facility] Dxablenckb413[address] [place], [place] [address]Dr. Yilan ChangGlobulin (S) [Mass/Vol]3.1 g/dL NormalThe [facility] HospitalComment on above:Performed By: #### BNP, CMP ####[facility] Vjqphzgjci9[address] [place], [place] [address]Dr. Yilan ChangGlucose [Mass/Vol]77 mg/yDUrektc75-493Vhr [facility] HospitalComment on above:Performed By: #### BNP, CMP ####[facility] Ajkohdnjix9489[address] [place], [place] [address]Dr. Yilan ChangPotassium [Moles/Vol]4.2 mmol/L Normal3.5-5.1The [facility] HospitalComment on above:Performed By: #### BNP, CMP ####[facility] Tpomoewkqc[address] [place], [place] [address]Dr. Yilan ChangProtein [Mass/Vol]6.3 g/dLCritically low6.4-8.2The [facility] Comment on above:Performed By: #### BNP, CMP ####[facility] Edbzjxsnbz030[address] [place], [place] [address]Dr. Yilan ChangSodium [Moles/Vol]125 mmol/LCritically pjw011-773Dhb [facility] HospitalComment on above: Performed By: #### BNP, CMP ####[facility] Rpoevmvucv567[address] [place], [place] [address]Dr. Selenalan ChangUrea nitrogen [Mass/Vol]35.0 mg/dL Critically high7.0-18.0The [facility] HospitalComment on above:Performed By: #### BNP, CMP ####[facility] Tvnloulgop008[address] [place], [place] [address]Dr. Selenalan ChangUrea nitrogen/Creatinine [Mass ratio]19.1 mg/mgNormalThe [facility] HospitalComment on above:Performed By: #### BNP, CMP ####[facility] Vetchggyyk301[address] [place], [place] [address]Dr. Selenalan ChangUA RANDOM W/MICROSCOPICon 27-89-6179FRHNNVDDOGZLUPsoayhunJWGL SEENMemorial Health SystemComment on above:Performed By: #### UAMIC ####[facility] Hyybiufkbw5109[address] [place], [place] [address]Dr. Airam ChangBilirubin Ql (U)NegativeNormalNEGATIVEThe [facility] HospitalComment on above:Performed By: #### UAMIC ####[facility] Zkvzmcobjv1029[address] [place], [place] [address]Dr. Selenalan ChangCASTNONE SEENNormalNONE SEENMemorial Health SystemComment on above:Performed By: #### UAMIC ####[facility] Mknjbxakhc258[address] [place], [place] [address]Dr. Airam ChangClarity (U)CLEARNormalCLEARThe [facility] HospitalComment on above:Performed By: #### UAMIC ####[facility] Njqazgiiwb140[address] [place], [place] [address]Dr. Airam ChangColor (U)LT. YELLOWNormalYELLOWMemorial Health SystemComment on above:Performed By: #### UAMIC ####[facility] Sasfwdxfrm269[address] [place], [place] [address]Dr. Airam ChangCrystals LM Nom (Urine sed)NONE SEENNormalNONE SEENThe [facility] HospitalComment on above:Performed By: #### UAMIC ####[facility] Hheklifixq[address] [place] [address]Dr. Yilan ChangEpithelial cells LM Ql (Urine sed)FEWAbnormalNONE SEEN /RAREThe [facility] HospitalComment on above:Performed By: #### UAMIC ####[facility] Zgaktjqttu6[address] [place] [address]Dr. Yilan ChangGlucose Ql (U)NegativeNormalNEGATIVEMain Campus Medical Center HospitalComment on above:Performed By: #### UAMIC ####[facility] Yvnhhfpeah378[address] [place], [place] [address]Dr. Yilan ChangHemoglobin Ql (U)NegativeNormalNEGATIVEMemorial Health SystemComment on above:Performed By: #### UAMIC ####[facility] Bqjyayjdpt576[address] [place], [place] [address]Dr. Yilan ChangKetones Ql (U)NegativeNormalNEGATIVEThe [facility] Comment on above:Performed By: #### UAMIC ####[facility] Qeobyeamdu937[address] [place], [place] [address]Dr. Yilan ChangLEUKOCYTESMODERATEAbnormal NEGATIVEMemorial Health SystemComment on above:Performed By: #### UAMIC ####[facility] Xyboropeix782[address] [place], [place] [address]Dr. Yilan ChangMUCOUSNONE SEENNormalNONE SEENThe [facility] HospitalComment on above: Performed By: #### UAMIC ####[facility] Bolkjoshgi175[address] [place], [place] [address]Dr. Yilan ChangNitrite Ql (U)NegativeNormalNEGATIVEMemorial Health SystemComment on above:Performed By: #### UAMIC ####[facility] Pbllsqnkga327[address] [place], [place] [address]Dr. Yilan ChangpH (U)5.5 [pH] Normal5-9[facility] Health SystemComment on above:Performed By: #### UAMIC ####[facility] Iilllymqql412[address] [place], [place] [address]Dr. Yilan QawdgPGK3-5Aielhf6-4Tol [facility] HospitalComment on above:Performed By: #### UAMIC ####[facility] Otoyzfbgvi35280[address] [place], [place] [address]Dr. Selenaneil DeuceSPEC GRAVITY1.777Mahryc6.005-<=1.025The [facility] Comment on above:Performed By: #### UAMIC ####[facility] Kwxjjlcsgi808[address] [place], [place] [address]Dr. Airam TripathiUA PROTEINNegativeNormal NEGATIVE/ TRACEThe [facility] HospitalComment on above:Performed By: #### UAMIC ####[facility] Mqhbzblrbx8[address] [place], [place] [address]Dr. Airam TripathiUrobilinogen Qn (U)0.2 {Ligia'U}/dLNormal0.2 - 1.0The [facility] HospitalComment on above:Performed By: #### UAMIC ####[facility] Gwekzoftkb490[address] [place], [place] [address]Dr. Airam TripathiWBC5-10 AbnormalNONE [address]ENThe [facility] HospitalComment on above:Performed By: #### UAMIC ####[facility] Wthaqkxvsu4359[address] [place], [place] [address]Dr. Airam FerrerPon 21-57-4036Zfrlhhkkrqh peptide B (Bld) [Mass/Vol]1496.0 pg/mL Critically high<=900.0The [facility] HospitalComment on above:Performed By: #### T4, BNP, MG, TSH, CMADM, CRP, CMP ####[facility] Eahtigqgyq[address] [place], [place] [address]Dr. Airam TripathiCARDIAC CONSUELO 3-6on 07-23-8607OY [Catalytic activity/Vol]125 U/QGgdjgy50-366Gfx [facility] HospitalComment on above:Performed By: #### CMREP ####[facility] Qrvwjejpwu017[address] [place], [place] [address]Dr. Airam Phillips.MB [Mass/Vol]ng/mLNormal<=3.60The [facility] HospitalComment on above:Performed By: #### CMREP ####[facility] Jzekdadnbz[address] [place] [address]Dr. Airam TripathiHSTROP5.8 pg/mLNormal4.0-51.3The [facility] HospitalComment on above:Result Comment: CUT-OFF POINTS HAVE BEEN ESTABLISHED BASED ON THE FOURTH UNIVERSAL DEFINITIONS OF MY OCARDIALINFARCTION. THE UPPER REFERENCE LIMIT (URL) OF TROPONIN, DEFINED THE 99TH PERCENTILE OFcTnI DISTRIBUTION IN A REFERENCE POPULATION, HAS BEEN CONFIRMED THE DECISION THRESHOLDFOR [place] DIAGNOSIS.Performed By: #### CMREP ####[facility] Obdwisxqqi[address] [place] [address]Dr. Airam TripathiCARDIAC CONSUELO ADMITon 31-96-7912GJ [Catalytic activity/Vol]121 U/L Ozkozj58-227Iny [facility] HospitalComment on above:Performed By: #### T4, BNP, MG, TSH, CMADM, CRP, CMP ####[facility] Shellctgyg[address] [place] [address]Dr. Airam TripathiCK.MB [Mass/Vol]3.06 ng/mLNormal<=3.[address] [facility] HospitalComment on above:Performed By: #### T4, BNP, MG, TSH, CMADM, CRP, CMP ####[facility] [address]zzkleu[address] [place] [address]Dr. Selenaneil DeuceHSTROP6.9 pg/mLNormal4.0-51.3TUniversity [facility]als [facility] Comment on above:Result Comment: CUT-OFF POINTS HAVE BEEN ESTABLISHED BASED ON THE FOURTH UNIVERSAL DEFINITIONS OF MYOCARDIALINFARCTION. THE UPPER REFERENCE LIMIT (URL) OF TROPONIN, DEFINED THE 99TH PERCENTILE OFcTnI DISTRIBUTION IN A REFERENCE POPULATION, HAS BEEN CONFIRMED THE DECISION THRESHOLDFOR NH DIAGNO SIS.Performed By: #### T4, BNP, MG, TSH, CMADM, CRP, CMP ####[facility] Aysjfphqhz[address] [place] [address]Dr. Airam BokeyVAV086 ng/mL Critically high9-82The [facility] HospitalComment on above:Performed By: #### T4, BNP, MG, TSH, CMADM, CRP, CMP ####[facility] Idiwvdpcyu73[address] [place], [place] [address]Dr. Airam TripathiCBC AUTO DIFFon 62-29-3141DVZI #0.0 103/ulNormal0.0-0.1The [facility] HospitalComment on above:Performed By: #### CBC ####[facility] Rwbnzdjlln475[address] [place], [place] [address]Dr. Airam ChangBasophils/100 WBC (Bld)0.2 %Normal0.2-2.0The [facility] HospitalComment on above:Performed By: #### CBC ####[facility] Rygpxytyfr403[address] [place], [place] [address]Dr.Selenalan ChangEO #0.2 103/ulNormal0.0-0.7The [facility] HospitalComment on above:Performed By: #### CBC ####[facility] Prwolfbakt5[address] [place], [place] [address]Dr.Airam ChangEosinophils/100 WBC (Bld)1.5 %Normal0.9-7.0The [facility] HospitalComment on above:Performed By: #### CBC ####[facility] Jklnguuxvy1816[address] [place], [place] [address]Dr.Airam ChangErythrocyte distribution width (RBC) [Ratio]12.7 %Normal 11.0-15.0The [facility] HospitalComment on above:Performed By: #### CBC ####[facility] Cqrutzqjel319[address] [place], [place] [address]Dr. Airam ChangHematocrit (Bld) [Volume fraction]30.0 %Critically low36.0-48.0The [facility] HospitalComment on above:Performed By: #### CBC ####[facility] Xsdavifdhu[address] [place], [place] [address]Dr.Airam ChangHemoglobin (Bld) [Mass/Vol]9.6 g/dLCritically low12.0-16.0The [facility] HospitalComment on above:Performed By: #### CBC ####[facility] Sernbgjgtq723[address] [place], [place] [address]Dr.Yilan ChangIG #0.11 10e3/ulCritically high0.00-0.[address] [facility] HospitalComment on above:Performed By: #### CBC ####[facility] Lqgxkpldrv79[address] [place] [address]DrBroderick TripathiIG % 1.1 %Critically high0.0-0.5The [facility] HospitalComment on above:Performed By: #### CBC ####[facility] Rovdmvjanj026[address] [place], [place] [address]Dr.Airam DossH #1.5 103/ulNormal1.2-3.8The [facility] HospitalComment on above:Performed By: #### CBC ####[facility] Ypwtsnabgh9[address] [place], [place] [address]DrBroderick Dosshocytes/100 WBC (Bld)14.9 % Critically low20.5-60.0The [facility] HospitalComment on above:Performed By: #### CBC ####[facility] Gkpnsrbrvf[address] [place], [place] [address]Dr. Airam TripathiSKWENTNAUAL DIFF REQNONormalThe [facility] HospitalComment on above: Performed By: #### CBC ####[facility] Ltvjdvhfvl386[address] [place], [place] [address]Dr.Airam TripathiKINGS [facility] (RBC) [Entitic mass]30.0 pgNormal 26.7-34.0The [facility] HospitalComment on above:Performed By: #### CBC ####[facility] Rvbiewzpry7[address] [place], [place] [address]Dr. Airam TripathiNASSAU [facility] (RBC) [Mass/Vol]32.0 g/vAUwdidr31.9-35.2The [facility] Comment on above:Performed By: #### CBC ####[facility] Ofvxpmlztg27[address] [place], [place] [address]DrBroderick TripathiSOUTHWEST[facility] [place] (RBC) [Entitic vol]93.8 fL Duzxiy26.0-99.0The [facility] HospitalComment on above:Performed By: #### CBC ####[facility] Eumnlgnocf396[address] [place], [place] [address]DrKianna TripathiMONO #0.8 103/ulNormal0.3-0.8The [facility] HospitalComment on above: Performed By: #### CBC ####[facility] Khgdddseph[address] [place] [address]Dr.Selenalan ChangMonocytes/100 WBC (Bld)7.3 %Normal 1.7-12.0The [facility] HospitalComment on above:Performed By: #### CBC ####[facility] Gtefjtqyym[address] [place], [place] [address]Dr. Yilan ChangNEUT #7.8 103/ulCritically high1.4-6.5The [facility] HospitalComment on above:Performed By: #### CBC ####[facility] Zfihsrlmhi[address] [place], [place] [address]Dr.Yilan ChangNeutrophils/100 WBC (Bld)75.0 %Normal 43.0-75.0The [facility] HospitalComment on above:Performed By: #### CBC ####[facility] Oixhdhayum[address] [place], [place] [address]Dr. Airam ChangPlatelet mean volume (Bld) [Entitic vol]9.1 fLCritically low9.5-13.[address] [facility] HospitalComment on above:Performed By: #### CBC ####[facility] Tlazjmfsfu[address] [place], [place] [address]Dr.Yilan HtbxhZIJ348 103/tlKggesg895-711Hip [facility] HospitalComment on above:Performed By: #### CBC ####[facility] Rwffagabei[address] [place], [place] [address]Dr. Yineil ChangRBC3.20 106/ulCritically low4.20-5.40The [facility] HospitalComment on above:Performed By: #### CBC ####[facility] Vzspvdohfe[address] [place], [place] [address]Dr.Selenalan WkagpEFL46.4 103/ulNormal4.0-11.0The [facility] HospitalComment on above:Performed By: #### CBC ####[facility] Leffcdbhgr[address] [place] [address]Dr.Airam TripathiCRPon 56-53-4139VIZ [Mass/Vol]mg/LNormal<=1.0The [facility] HospitalComment on above: Performed By: #### T4, BNP, MG, TSH, CMADM, CRP, CMP ####[facility] [facility] [address] [place] [address]Dr. Airam ChangCT HEAD WO CON on 13-78-1678IF HEAD WO CONNormalThe [facility] HospitalCovid-19 PCR (CVDTBH)on 34-86-2842UOEN-CoV-2 (COVID-19) RNA MIKE+probe Ql (Unsp spec)Not detectedNormal NOT DETECTEDThe [facility] HospitalComment on above:Result Comment: When diagnostic testing is [...] for this test is supported by the [place] of Health and Human Service's declaration that [...] no longer be used).Performed By: #### CVDTBH ####[facility] [address] [place] [address]Dr. Airam ChangLACTATE/LACTIC ACIDon 15-03-6327Mhaduxn [Moles/Vol]0.5 mmol/LNormal0.4-1.9The [facility] HospitalComment on above:Performed By: #### LACT ####[facility] Innunafver[address] [place], [place] [address]Dr. Airam TripathiMAGNESIUMon 78-96-1249Jhatbinet [Mass/Vol]1.9 mg/dLNormal1.8-2.4The [facility] HospitalComment on above:Performed By: #### T4, BNP, MG, TSH, CMADM, CRP, CMP ####[facility] [address] [address]Dr. Selenalan ChangPROF 14(COMP METB)on 39-97-2004Hcayfkm [Mass/Vol]3.8 g/dL Normal3.4-5.0The [facility] HospitalComment on above:Performed By: #### T4, BNP, MG, TSH, CMADM, CRP, CMP ####[facility] [address] [place] [address]Dr. Airam ChangAlbumin/Globulin [Mass ratio]1.1 {ratio}NormalThe [facility] HospitalCommclaren flint on above:Performed By: #### T4, BNP, MG, TSH, CMADM, CRP, CMP ####[facility] Sfztafnqio[address] [place], [place] [address]Dr. Selenalan ChangALP [Catalytic activity/Vol]161 U/L Critically opjy55-504Jid [facility] HospitalComment on above:Performed By: #### T4, BNP, MG, TSH, CMADM, CRP, CMP ####[facility] Odorjaynlv[address] [place] [address]Dr. Selenalan ChangALT [Catalytic activity/Vol]21 U/L Jdzcez24-08Cbj [facility] HospitalComment on above:Performed By: #### T4, BNP, MG, TSH, CMADM, CRP, CMP ####[facility] Fzfpvvuuey[address] [place] [address]Dr. Selenalan DeuceAnion gap [Moles/Vol]12.6 mmol/LNormal The [facility] HospitalComment on above:Performed By: #### T4, BNP, MG, TSH, CMADM, CRP, CMP ####[facility] K[address]oz[address] [place] [address]Dr. Selenalan ChangAST [Catalytic activity/Vol]30 U/FDcwcew88-07Glg [facility] HospitalComment on above:Performed By: #### T4, BNP, MG, TSH, CMADM, CRP, CMP ####[facility] Frjivemyal[address] [place] [address]Dr. Yilan ChangBilirubin [Mass/Vol]0.3 mg/dLNormal0.2-1.0The [facility] HospitalComment on above:Performed By: #### T4, BNP, MG, TSH, CMADM, CRP, CMP ####[facility] F[address]zaaxrni[address] [place] [place] [address]Dr. Yilan ChangCalcium [Mass/Vol]8.8 mg/dLNormal8.5-10.1The [facility] HospitalComment on above:Performed By: #### T4, BNP, MG, TSH, CMADM, CRP, CMP ####[facility] Kksrfuotdg[address] [place], [place] [address]Dr. Yilan Tripathi Chloride [Moles/Vol]91 mmol/LCritically dcf55-205Qea [facility] on above:Performed By: #### T4, BNP, MG, TSH, CMADM, CRP, CMP ####[facility] Vfiprkzqfb[address] [place], [place] [address]Dr. Yilan ChangCO2 [Moles/Vol]26.9 mmol/UErnvar27.0-32.0The [facility] HospitalCommclaren flint on above: Performed By: #### T4, BNP, MG, TSH, CMADM, CRP, CMP ####[facility] [address]jrjkufbmb4[address] [place], [place] [address]Dr. Yilan ChangCreatinine [Mass/Vol]1.83 mg/dLCritically high0.55-1.02The [facility] on above:Performed By: #### T4, BNP, MG, TSH, CMADM, CRP, CMP ####[facility] Ntfrkbinjp[address] [place], [place] [address]Dr. Yilan ChangEGFR-AF AWHNHIIB68 mL/min/1.66j4Xkxovnzsdk low>=60The [facility] HospitalComment on above: Performed By: #### T4, BNP, MG, TSH, CMADM, CRP, CMP ####[facility] [address] [place] [address]Dr. Yilan ChangEGFR-NON AF POUEBZXS55 mL/min/1.02q2Wtqeshhlmf low>=60The [facility] HospitalComment on above: Performed By: #### T4, BNP, MG, TSH, CMADM, CRP, CMP ####[facility] Lsfr[address]zfxg[address] [place] [address]Dr. Yilan ChangGlobulin (S) [Mass/Vol]3.5 g/dLNormalThe [facility] HospitalComment on above:Performed By: #### T4, BNP, MG, TSH, CMADM, CRP, CMP ####[facility] Rqrowzrpso[address] [place] [address]Dr. Yilan ChangGlucose [Mass/Vol]96 mg/dLNormal 74-106The [facility] HospitalComment on above:Performed By: #### T4, BNP, MG, TSH, CMADM, CRP, CMP ####[facility] Wisrqivdpd[address] [place] [address]Dr. Yilan ChangPotassium [Moles/Vol]4.5 mmol/LNormal3.5-5.1The [facility] HospitalComment on above:Performed By: #### T4, BNP, MG, TSH, CMADM, CRP, CMP ####[facility] Fislubyegt[address] [address]Dr. Yilan ChangProtein [Mass/Vol]7.3 g/dLNormal6.4-8.2The [facility] Comment on above:Performed By: #### T4, BNP, MG, TSH, CMADM, CRP, CMP ####[facility] Uwmhfnqmzq[address] [place] [place] [address]Dr. Yilan ChangSodium [Moles/Vol]126 mmol/LCritically mtm875-118Nve [facility] HospitalComment on above:Performed By: #### T4, BNP, MG, TSH, CMADM, CRP, CMP ####[facility] Hqtppofpop[address] [place] [address]Dr. Yilan ChangUrea nitrogen [Mass/Vol]34.0 mg/dLCritically high7.0-18.0The [facility] HospitalComment on above:Performed By: #### T4, BNP, MG, TSH, CMADM, CRP, CMP ####[facility] Omtnuxonkb0[address] [place], [place] [address]Dr. Yilan ChangUrea nitrogen/Creatinine [Mass ratio]18.6 mg/mgNormalThe [facility] HospitalComment on above:Performed By: #### T4, BNP, MG, TSH, CMADM, CRP, CMP ####[facility] Jhoessiikn[address] [place], [place] [address]Dr. Yilan ChangAlbumin [Mass/Vol]3.4 g/dLNormal3.4-5.0The [facility] HospitalComment on above:Performed By: #### CMP ####[facility] Sidvysvfrc[address] [place], [place] [address]Dr.Yilan ChangAlbumin/Globulin [Mass ratio]1.0 {ratio} NormalThe [facility] HospitalComment on above:Performed By: #### CMP ####[facility] Tnumzbdchw[address] [place], [place] [address]Dr.Yilan ChangALP [Catalytic activity/Vol]151 U/LCritically hlmj53-370Mbd [facility] HospitalComment on above:Performed By: #### CMP ####[facility] Unktkfvkqe[address] [place], [place] [address]Dr.Yilan ChangALT [Catalytic activity/Vol]20 U/LNormal 14-59The [facility] HospitalComment on above:Performed By: #### CMP ####[facility] Ewuwwsnqar[address] [place], [place] [address]Dr.Yilan ChangAnion gap [Moles/Vol]11.7 mmol/LNormalMemorial Health SystemComment on above:Performed By: #### CMP ####[facility] Xlfkhwowlb117[address] [place], [place] [address]Dr.Yilan ChangAST [Catalytic activity/Vol]28 U/LLwijzf96-54Fbq [facility] HospitalComment on above:Performed By: #### CMP ####[facility] Arcwqbrczk[address] [place], [place] [address]Dr.Yilan ChangBilirubin [Mass/Vol]0.3 mg/dLNormal0.2-1.0The [facility] HospitalComment on above:Performed By: #### CMP ####[facility] Zmosmysbfv[address] [place], [place] [address]Dr.Yilan ChangCalcium [Mass/Vol]8.5 mg/dLNormal8.5-10.1The [facility] HospitalComment on above:Performed By: #### CMP ####[facility] Sascdekvqs[address] [place], [place] [address]Dr.Yilan ChangChloride [Moles/Vol]91 mmol/LCritically ayc88-382Pvl [facility] HospitalComment on above: Performed By: #### CMP ####[facility] Ahnbkmccmy288[address] [place], [place] [address]Dr.Yilan ChangCO2 [Moles/Vol]28.3 mmol/LNormal 21.0-32.0The [facility] HospitalComment on above:Performed By: #### CMP ####[facility] Hmqjcvllhs[address] [place], [place] [address]Dr. Yilan ChangCreatinine [Mass/Vol]1.68 mg/dLCritically high0.55-1.02The [facility] HospitalComment on above:Performed By: #### CMP ####[facility] Zdhtpbzhel[address] [place], [place] [address]Dr.Yilan ChangEGFR-AF NMUXGZJL11 mL/min/1.30y6Efhnegzuzp low>=60The [facility] HospitalComment on above: Performed By: #### CMP ####[facility] Gypkddjdzy[address] [place], [place] [address]Dr.Yilan ChangEGFR-NON AF VHQJGFQA57 mL/min/1.73m2 Critically low>=60The [facility] HospitalComment on above:Performed By: #### CMP ####[facility] Bhxrcrmvym[address] [place], [place] [address]Dr. Yilan ChangGlobulin (S) [Mass/Vol]3.5 g/dLNormalThe [facility] HospitalComment on above:Performed By: #### CMP ####[facility] Csuuikcnjl[address] [place] [address]Dr.Airam ChangGlucose [Mass/Vol]74 mg/lEYjyotm33-[address] [facility] HospitalComment on above:Performed By: #### CMP ####[facility] Vrwjtuqhrk[address] [place], [place] [address]Dr.Airam Tripathi Potassium [Moles/Vol]4.0 mmol/LNormal3.5-5.1The [facility] HospitalComment on above:Performed By: #### CMP ####[facility] Nkrnduaban[address] [place], [place] [address]Dr.Airam ChangProtein [Mass/Vol]6.9 g/dLNormal6.4-8.[address] [facility] HospitalCommclaren flint on above:Performed By: #### CMP ####[facility] Dupthpmvcn[address] [place], [place] [address]Dr.Airam ChangSodium [Moles/Vol]127 mmol/LCritically lwl900-256Uqq [facility] HospitalComment on above:Performed By: #### CMP ####[facility] Jdinhkbkto433[address] [place], [place] [address]Dr.Airam ChangUrea nitrogen [Mass/Vol]29.0 mg/dL Critically high7.0-18.0The [facility] HospitalCommclaren flint on above:Performed By: #### CMP ####[facility] Ffoklwwsns[address] [place], [place] [address]Dr. Airam ChangUrea nitrogen/Creatinine [Mass ratio]17.3 mg/mgNormalThe [facility] HospitalComment on above:Performed By: #### CMP ####[facility] Bnlrqugcul[address] [place], [place] [address]Dr.Airam NyvkyY0or 06-13-2022 T4 [Mass/Vol]6.80 ug/dLNormal4.80-13.90The [facility] on above: Performed By: #### T4, BNP, MG, TSH, CMADM, CRP, CMP ####[facility] Olpguepmpc[address] [place], [place] [address]Dr. Airam ChangTSHon 97-26-6083VXE1.101 uIU/mLCritically low0.358-3.740The [facility] HospitalComment on above:Performed By: #### T4, BNP, MG, TSH, CMADM, CRP, CMP ####[facility] [address]xxrbzgyh[address] [place] [address]Dr. Airam Tripathi OSMOLALITYon 36-63-3651Gtqrpekvdy [Osmolality]272 mosm/kgCritically rzq620-[address] [facility] HospitalComment on above:Performed By: #### OSMO ####[facility] Lrxcwstanx[address] [place], [place] [address]Dr. Airam TripathiCBC AUTO DIFFon 25-86-2210GIEH #0.0 103/ulNormal0.0-0.1The [facility] HospitalComment on above:Performed By: #### CBC ####[facility] Juxeslsums[address] [place], [place] [address]Dr.Airam ChangBasophils/100 WBC (Bld)0.3 %Normal 0.2-2.0The [facility] HospitalComment on above:Performed By: #### CBC ####[facility] Ptpucpmuud[address] [place], [place] [address]Dr.Airam ChangEO # 0.2 103/ulNormal0.0-0.7The [facility] HospitalComment on above:Performed By: #### CBC ####[facility] Mqonxvsbah[address] [place], [place] [address]Dr. Airam ChangEosinophils/100 WBC (Bld)2.5 %Normal0.9-7.0The [facility] Comment on above:Performed By: #### CBC ####[facility] Ecgmcifizg059[address] [place], [place] [address]Dr.Airam ChangErythrocyte distribution width (RBC) [Ratio]12.9 %Tqhcza49.0-15.0The [facility] HospitalComment on above: Performed By: #### CBC ####[facility] Nhzukjfdqt803[address] [place], [place] [address]Dr.Airam TripathiHematocrit (Bld) [Volume fraction]29.8 % Critically low36.0-48.0The [facility] HospitalComment on above:Performed By: #### CBC ####[facility] L[address]kqaqdxm[address] [place] [address]DrKianna TripathiHemoglobin (Bld) [Mass/Vol]9.7 g/dLCritically low12.0-16.0The [facility]Comment on above:Performed By: #### CBC ####[facility] Mobfcjporr[address] [place], [place] [address]DrBroderick TripathiIG #0.03 10e3/ulNormal0.00-0.03The [facility] HospitalComment on above:Performed By: #### CBC ####[facility] Zwvbkmvqxc065[address] [place], [place] [address]DrKianna TripathiIG %0.3 %Normal0.0-0.5The [facility] HospitalComment on above:Performed By: #### CBC ####[facility] Wibmbptlwx[address] [place], [place] [address]Dr.Airam TripathiLYMPH #1.3 103/ulNormal1.2-3.8The [facility] Comment on above:Performed By: #### CBC ####[facility] Epoegqbtxf[address] [place], [place] [address]DrBroderick TripathiLymphocytes/100 WBC (Bld)14.6 %Critically low20.5-60.0The [facility] HospitalComment on above:Performed By: #### CBC ####[facility] Hgjhcacxhi5[address] [place], [place] [address]Dr.Airam TripathiMANUAL DIFF REQNONormalThe [facility] HospitalComment on above: Performed By: #### CBC ####[facility] Uptzepcqnc[address] [place], [place] [address]DrBroderick TripathiKINGS [facility] (RBC) [Entitic mass]30.6 pgNormal 26.7-34.0The [facility] HospitalComment on above:Performed By: #### CBC ####[facility] Vudmcimxcu338[address] [place], [place] [address]Dr. Airam TripathiNASSAU [facility] (RBC) [Mass/Vol]32.6 g/qCHisdfs51.9-35.2The [facility] Comment on above:Performed By: #### CBC ####[facility] Fbhpukjygh[address] [place], [place] [address]Dr.Airam TripathiMCV (RBC) [Entitic vol]94.0 fL Kgirys23.0-99.0The [facility] HospitalComment on above:Performed By: #### CBC ####[facility] Dsamvcduvg[address] [place], [place] [address]Dr. Airam ChangMONO #0.5 103/ulNormal0.3-0.8The [facility] HospitalComment on above: Performed By: #### CBC ####[facility] Xaqucdybxz046[address] [place], [place] [address]Dr.Airam ChangMonocytes/100 WBC (Bld)5.7 %Normal 1.7-12.0The [facility] HospitalComment on above:Performed By: #### CBC ####[facility] Raomsnfkos654[address] [place], [place] [address]Dr. Airam ChangNEUT #6.9 103/ulCritically high1.4-6.5The [facility] HospitalComment on above:Performed By: #### CBC ####[facility] Mmtdjtfueu086[address] [place], [place] [address]Dr.Airam ChangNeutrophils/100 WBC (Bld)76.6 % Critically high43.0-75.0The [facility] HospitalComment on above:Performed By: #### CBC ####[facility] Jilwinrwuq832[address] [place], [place] [address]Dr. Selenaneil ChangPlatelet mean volume (Bld) [Entitic vol]9.2 fLCritically low9.5-13.[address] [facility] HospitalComment on above:Performed By: #### CBC ####[facility] Jhwzwhvpbp415[address] [place], [place] [address]Dr.Selenalan XmibpAET062 103/olUfolku821-535Idt [facility] HospitalComment on above:Performed By: #### CBC ####[facility] Jycspurrhi[address] [place], [place] [address]Dr. Airam ChangRBC3.17 106/ulCritically low4.20-5.40The [facility] HospitalComment on above:Performed By: #### CBC ####[facility] Qllccbqzlu824[address] [place], [place] [address]Dr.Airam ChangWBC9.1 103/ulNormal4.0-11.0The [facility] HospitalComment on above:Performed By: #### CBC ####[facility] Idjlnagzkm396[address] [place], [place] [address]Dr.Airam ChangPROF 14(COMP METB)on 21-12-3482Oxmttob [Mass/Vol]3.4 g/dLNormal3.4-5.0The [facility] Comment on above:Performed By: #### CMP ####[facility] Dvszclbhen42[address] [place], [place] [address]Dr.Airam ChangAlbumin/Globulin [Mass ratio] 1.0 {ratio}NormalThe [facility] HospitalComment on above:Performed By: #### CMP ####[facility] Qevrmbzbly155[address] [place], [place] [address]Dr. Airam ChangALP [Catalytic activity/Vol]156 U/LCritically gpdl38-605Eez [facility] HospitalComment on above:Performed By: #### CMP ####[facility] Dxvfjbscui67[address] [place], [place] [address]Dr.Airam ChangALT [Catalytic activity/Vol]18 U/QQukyoe04-11Kyv [facility] HospitalComment on above:Performed By: #### CMP ####[facility] Juqngyitwh[address] [place], [place] [address]Dr.Airam TripathiAnion gap [Moles/Vol]10.8 mmol/LNormalThe [facility] Comment on above:Performed By: #### CMP ####[facility] Xlgxtpzhxc643[address] [place], [place] [address]Dr.Selenalan ChangAST [Catalytic activity/Vol]27 U/ZFrnxfr68-83Scy [facility] HospitalComment on above:Performed By: #### CMP ####[facility] Hqwttbdkpq[address] [place] [address]Dr. Yilan ChangBilirubin [Mass/Vol]0.2 mg/dLNormal0.2-1.0The [facility] Comment on above:Performed By: #### CMP ####[facility] Qgfhivsqij165[address] [place], [place] [address]Dr.Yilan ChangCalcium [Mass/Vol]8.1 mg/dL Critically low8.5-10.1The [facility] HospitalComment on above:Performed By: #### CMP ####[facility] Lhbnbwgfea[address] [place], [place] [address]Dr. Yilan ChangChloride [Moles/Vol]92 mmol/LCritically nsb70-282Bsc [facility] HospitalComment on above:Performed By: #### CMP ####[facility] Vakmxztala[address] [place], [place] [address]Dr.Yilan ChangCO2 [Moles/Vol] 27.4 mmol/VChwgbe07.0-32.0The [facility] HospitalComment on above:Performed By: #### CMP ####[facility] Ourcfantdy[address] [place], [place] [address]Dr.Yilan ChangCreatinine [Mass/Vol]1.57 mg/dLCritically high0.55-1.02The [facility] HospitalComment on above:Performed By: #### CMP ####[facility] Hjadmcyfwg398[address] [place], [place] [address]Dr.Yilan ChangEGFR-AF GWPSPPKL97 mL/min/1.49f6Yxjuujjcoa low>=60The [facility] HospitalComment on above: Performed By: #### CMP ####[facility] Wsfidbzlod[address] [place], [place] [address]Dr.Yilan ChangEGFR-NON AF RUAKGAYW62 mL/min/1.73m2 Critically low>=60The [facility] HospitalComment on above:Performed By: #### CMP ####[facility] Hdgqqhtglq210[address] [place], [place] [address]Dr. Yilan ChangGlobulin (S) [Mass/Vol]3.4 g/dLNormalThe [facility] HospitalComment on above:Performed By: #### CMP ####[facility] Zgvhxlishf[address] [place] [address]Dr.Airam ChangGlucose [Mass/Vol]82 mg/zHDvvakj86-[address] [facility] HospitalComment on above:Performed By: #### CMP ####[facility] Mkirigazvq618[address] [place], [place] [address]Dr.Airam Tripathi Potassium [Moles/Vol]4.2 mmol/LNormal3.5-5.1The [facility] HospitalComment on above:Performed By: #### CMP ####[facility] Obtyeqgqmy45[address] [place], [place] [address]Dr.Airam TripathiProtein [Mass/Vol]6.8 g/dLNormal6.4-8.[address] [facility] HospitalComment on above:Performed By: #### CMP ####[facility] Jcfmlplpkn150[address] [place], [place] [address]Dr.Airam TripathiSodium [Moles/Vol]126 mmol/LCritically chr460-267Hiw [facility] HospitalComment on above:Performed By: #### CMP ####[facility] Yknlgqtejq477[address] [place], [place] [address]Dr.Airam ChangUrea nitrogen [Mass/Vol]35.0 mg/dL Critically high7.0-18.0The [facility] HospitalComment on above:Performed By: #### CMP ####[facility] Ymgecjrngc[address] [place], [place] [address]Dr. Airam ChangUrea nitrogen/Creatinine [Mass ratio]22.3 mg/mgNormalThe [facility] HospitalComment on above:Performed By: #### CMP ####[facility] Htyljmyxbo[address] [place], [place] [address]Dr.Airam ChangOSMOLALITYon 60-55-8546Xtekwmpmtv [Osmolality]276 mosm/auEacqst433-629Xdq [facility] Comment on above:Performed By: #### OSMO ####[facility] Xnocgqmhmi[address] [place], [place] [address]Dr. Airam TripathiCBC AUTO DIFFon 06-01-2022 BASO #0.1 103/ulNormal0.0-0.1The [facility] HospitalComment on above:Performed By: #### CBC ####[facility] Rbrocsyzsa[address] [place], [place] [address]Dr.Yilan ChangBasophils/100 WBC (Bld)0.7 %Normal0.2-2.0The [facility] HospitalComment on above:Performed By: #### CBC ####[facility] Kednmzogms[address] [place], [place] [address]Dr.Yilan ChangEO #0.3 103/ul Normal0.0-0.7The [facility] HospitalComment on above:Performed By: #### CBC ####[facility] Kziqgmmexb[address] [place], [place] [address]Dr. Selenalan ChangEosinophils/100 WBC (Bld)3.3 %Normal0.9-7.0The [facility] Comment on above:Performed By: #### CBC ####[facility] Nyrgmlyouj[address] [place], [place] [address]Dr.Airam ChangErythrocyte distribution width (RBC) [Ratio]13.2 %Stahpn49.0-15.0The [facility] HospitalComment on above: Performed By: #### CBC ####[facility] Crdbvflmdg04[address] [place], [place] [address]Dr.Airam ChangHematocrit (Bld) [Volume fraction]32.0 % Critically low36.0-48.0The [facility] HospitalComment on above:Performed By: #### CBC ####[facility] Jigpxspaam[address] [place], [place] [address]Dr. Selenalan ChangHemoglobin (Bld) [Mass/Vol]10.3 g/dLCritically low12.0-16.0The [facility] HospitalComment on above:Performed By: #### CBC ####[facility] Nvvdoxmktc[address] [place], [place] [address]Dr.Selenalan ChangIG #0.05 10e3/ulCritically high0.00-0.03The [facility] HospitalComment on above:Performed By: #### CBC ####[facility] [address]rmztj[address] [place] [address]Dr.Airam TripathiIG %0.7 %Critically high0.0-0.5The [facility] HospitalComment on above:Performed By: #### CBC ####[facility] [address]upcgqt[address] [place] [address]Dr.Airam TripathiLYMPH #1.7 103/ulNormal1.2-3.8The [facility] HospitalComment on above:Performed By: #### CBC ####[facility] Vvseagpfsb[address] [place], [place] [address]Dr.Airam TripathiLymphocytes/100 WBC (Bld)22.6 %Jrzkqq49.5-60.0The [facility] HospitalComment on above:Performed By: #### CBC ####[facility] Yydkrjgwms[address] [place], [place] [address]Dr.Airam TripathiMANUAL DIFF REQNONormalThe [facility] HospitalComment on above:Performed By: #### CBC ####[facility] Itlyfwledz[address] [place] [address]Dr.Airam TripathiK[facility] (RBC) [Entitic mass]30.8 pgNormal 26.7-34.0The [facility] HospitalComment on above:Performed By: #### CBC ####[facility] Bhwkghenig[address] [place], [place] [address]Dr. Airam TripathiNASS[facility] (RBC) [Mass/Vol]32.2 g/lCKmhjuy77.9-35.2The [facility] Comment on above:Performed By: #### CBC ####[facility] Psikfmouue[address] [place], [place] [address]Dr.Airam TripathiV (RBC) [Entitic vol]95.8 fL Yfooaw69.0-99.0The [facility] HospitalComment on above:Performed By: #### CBC ####[facility] Ppqlwsgepo[address] [place], [place] [address]Dr. Airam TripathiMONO #0.6 103/ulNormal0.3-0.8The [facility] HospitalComment on above: Performed By: #### CBC ####[facility] [address]maw[address] [place] [address]Dr.Airam ChangMonocytes/100 WBC (Bld)8.6 %Normal 1.7-12.0The [facility] on above:Performed By: #### CBC ####[facility] Pwantjouur[address] [place] [address]Dr. Airam ChangNEUT #4.8 103/ulNormal1.4-6.5The [facility] HospitalComment on above: Performed By: #### CBC ####[facility] Qipsnyplhq[address] [place] [address]Dr.Airam ChangNeutrophils/100 WBC (Bld)64.1 %Normal 43.0-75.0The [facility] HospitalCommclaren flint on above:Performed By: #### CBC ####[facility] Nwojcnimyv[address] [place], [place] [address]Dr. Airam TripathiPlatelet mean volume (Bld) [Entitic vol]10.0 fLNormal9.5-13.5The [facility] HospitalCommclaren flint on above:Performed By: #### CBC ####[facility] Kodhmratks[address] [place], [place] [address]Dr.Airam QstnoJUR936 103/ul Nwkwjf404-464Kfw [facility] HospitalCommclaren flint on above:Performed By: #### CBC ####[facility] Pvplaggmqu17[address] [place], [place] [address]Dr. Airam ChangRBC3.34 106/ulCritically low4.20-5.40The [facility] HospitalCommclaren flint on above:Performed By: #### CBC ####[facility] Jssbmpvhfw[address] [place], [place] [address]Dr.Airam ChangWBC7.5 103/ulNormal4.0-11.0The [facility] HospitalCommclaren flint on above:Performed By: #### CBC ####[facility] Zaayiqsvfk[address] [place], [place] [address]Dr.Selenalan ChangPROF 14(COMP METB)on 61-53-2904Cnmgjvw [Mass/Vol]3.5 g/dLNormal3.4-5.0The [facility] Comment on above:Performed By: #### CMP ####[facility] Kvpawxrlll[address] [place] [address]Dr.Yilan ChangAlbumin/Globulin [Mass ratio] 1.1 {ratio}NormalThe [facility] HospitalComment on above:Performed By: #### CMP ####[facility] Moznzpzvqt[address] [place] [address]Dr. Yilan ChangALP [Catalytic activity/Vol]167 U/LCritically xkne00-165Ute [facility] HospitalComment on above:Performed By: #### CMP ####[facility] Jtohkeqvnr[address] [place], [place] [address]Dr.Yilan ChangALT [Catalytic activity/Vol]24 U/IHqbaog30-65Qby [facility] HospitalComment on above:Performed By: #### CMP ####[facility] Qvewinjhcl465[address] [place], [place] [address]Dr.Yilan ChangAnion gap [Moles/Vol]14.1 mmol/LNormalThe [facility] Comment on above:Performed By: #### CMP ####[facility] Lbyxivbexw239[address] [place], [place] [address]Dr.Yilan ChangAST [Catalytic activity/Vol]27 U/WBfzqvn52-96Yna [facility] HospitalComment on above:Performed By: #### CMP ####[facility] Pfwuhxbftl[address] [place], [place] [address]Dr. Yilan ChangBilirubin [Mass/Vol]0.3 mg/dLNormal0.2-1.0The [facility] Comment on above:Performed By: #### CMP ####[facility] Maoabdffqo838[address] [place], [place] [address]Dr.Yilan ChangCalcium [Mass/Vol]8.0 mg/dL Critically low8.5-10.1The [facility] HospitalComment on above:Performed By: #### CMP ####[facility] Fksdjbupmd014[address] [place], [place] [address]Dr. Yilan ChangChloride [Moles/Vol]96 mmol/LCritically gxh87-628Snb [facility] HospitalComment on above:Performed By: #### CMP ####[facility] Ftdfndgpwj413[address] [place], [place] [address]Dr.Yilan ChangCO2 [Moles/Vol] 24.6 mmol/EBwvkgl84.0-32.0The [facility] HospitalComment on above:Performed By: #### CMP ####[facility] Daygduuvax654[address] [place], [place] [address]Dr.Yilan ChangCreatinine [Mass/Vol]1.79 mg/dLCritically high0.55-1.02The [facility] HospitalComment on above:Performed By: #### CMP ####[facility] Ypgriwufqb9[address] [place], [place] [address]Dr.Yilan ChangEGFR-AF CTLSKPER33 mL/min/1.93s2Hsmyajbttu low>=60The [facility] HospitalComment on above: Performed By: #### CMP ####[facility] Syjwjmkeiq822[address] [place], [place] [address]Dr.Yilan ChangEGFR-NON AF AVJOCLYE39 mL/min/1.73m2 Critically low>=60The [facility] HospitalComment on above:Performed By: #### CMP ####[facility] Filspyfnpm554[address] [place], [place] [address]Dr. Airam ChangGlobulin (S) [Mass/Vol]3.3 g/dLNormalThe [facility] HospitalComment on above:Performed By: #### CMP ####[facility] Llydtyguxx1416[address] [place], [place] [address]Dr.Yilan ChangGlucose [Mass/Vol]58 mg/dLCritically low 74-106The [facility] HospitalComment on above:Performed By: #### CMP ####[facility] Newlteldzv44[address] [place], [place] [address]Dr.Yilan Tripathi Potassium [Moles/Vol]4.7 mmol/LNormal3.5-5.1The [facility] HospitalComment on above:Performed By: #### CMP ####[facility] Anvpmvjeqw[address] [place], [place] [address]Dr.Yilan ChangProtein [Mass/Vol]6.8 g/dLNormal6.4-8.[address] [facility] HospitalComment on above:Performed By: #### CMP ####[facility] Bwkloiggea28[address] [place], [place] [address]Dr.Airam ChangSodium [Moles/Vol]130 mmol/LCritically ejd039-466Ykg [facility] HospitalComment on above:Performed By: #### CMP ####[facility] Quqirsyvlr04230[address] [place], [place] [address]Dr.Airam ChangUrea nitrogen [Mass/Vol]30.0 mg/dL Critically high7.0-18.0The [facility] HospitalComment on above:Performed By: #### CMP ####[facility] Kbzdaotawz056[address] [place], [place] [address]Dr. Selenalan ChangUrea nitrogen/Creatinine [Mass ratio]16.8 mg/mgNormalThe [facility] HospitalComment on above:Performed By: #### CMP ####[facility] Ecbnxdhikx4769[address] [place], [place] [address]Dr.Airam ChangOSMOLALITYon 83-44-7029Lwwtobcvsn [Osmolality]275 mosm/ifAnvksr086-892Fot [facility] Comment on above:Performed By: #### OSMO ####[facility] Xgpttzmgmm024[address] [place], [place] [address]Dr. Airam TripathiCBC AUTO DIFFon 05-26-2022 BASO #0.0 103/ulNormal0.0-0.1The [facility] HospitalComment on above:Performed By: #### CBC ####[facility] Iwsiofeafh[address] [place], [place] [address]Dr.Airam TripathiBasophils/100 WBC (Bld)0.4 %Normal0.2-2.0The [facility] HospitalComment on above:Performed By: #### CBC ####[facility] Zmjsepvler[address] [place], [place] [address]Dr.Selenalan ChangEO #0.3 103/ul Normal0.0-0.7The [facility] HospitalComment on above:Performed By: #### CBC ####[facility] Cknkysamgb[address] [place] [address]Dr. Airam ChangEosinophils/100 WBC (Bld)3.2 %Normal0.9-7.0The [facility] Comment on above:Performed By: #### CBC ####[facility] Kopxjluajm685[address] [place], [place] [address]Dr.Airam ChangErythrocyte distribution width (RBC) [Ratio]13.0 %Kbjgik19.0-15.0The [facility] HospitalComment on above: Performed By: #### CBC ####[facility] Svibzbmizh078[address] [place], [place] [address]Dr.Airam ChangHematocrit (Bld) [Volume fraction]30.4 % Critically low36.0-48.0The [facility] HospitalComment on above:Performed By: #### CBC ####[facility] Lniotayefl8[address] [place], [place] [address]Dr. Selenaneil ChangHemoglobin (Bld) [Mass/Vol]9.6 g/dLCritically low12.0-16.0The [facility] HospitalComment on above:Performed By: #### CBC ####[facility] Vxkxtsarvd974[address] [place], [place] [address]Dr.Selenalan ChangIG #0.06 10e3/ulCritically high0.00-0.03The [facility] HospitalComment on above:Performed By: #### CBC ####[facility] Cfwyzjmazn8416[address] [place], [place] [address]Dr.Airam ChangIG %0.7 %Critically high0.0-0.5The [facility] HospitalComment on above:Performed By: #### CBC ####[facility] Mtzbtkeqhn875[address] [place], [place] [address]Dr.Selenalan ChangLYMPH #1.9 103/ulNormal1.2-3.8The [facility] HospitalComment on above:Performed By: #### CBC ####[facility] Dnvrbwhvjk059[address] [place], [place] [address]Dr.Airam ChangLymphocytes/100 WBC (Bld)20.6 %Jvvjlo29.5-60.0The [facility] HospitalComment on above:Performed By: #### CBC ####[facility] Hbsbfsogul[address] [place] [address]Dr.Airam TripathiMANUAL DIFF REQNONormalThe [facility] HospitalComment on above:Performed By: #### CBC ####[facility] Wvtuloqepa[address] [place] [address]Dr.Airam TripathiH (RBC) [Entitic mass]30.1 pgNormal 26.7-34.0The [facility]Comment on above:Performed By: #### CBC ####[facility] Flbeazcssc956[address] [place], [place] [address]Dr. Airam TripathiHC (RBC) [Mass/Vol]31.6 g/rDNpinhz29.9-35.2The [facility] Comment on above:Performed By: #### CBC ####[facility] Dicquneanm380[address] [place], [place] [address]Dr.Airam TripathiV (RBC) [Entitic vol]95.3 fL Rekrwu83.0-99.0The [facility] HospitalComment on above:Performed By: #### CBC ####[facility] Mvnirtmxmz69350[address] [place], [place] [address]Dr. Airam TripathiMONO #0.6 103/ulNormal0.3-0.8The [facility] HospitalComment on above: Performed By: #### CBC ####[facility] Pagvjefjtv284[address] [place], [place] [address]Dr.Airam ChangMonocytes/100 WBC (Bld)6.9 %Normal 1.7-12.0The [facility] HospitalComment on above:Performed By: #### CBC ####[facility] Xefywrkmhz923[address] [place], [place] [address]Dr. Airam TripathiNEUT #6.1 103/ulNormal1.4-6.5The [facility] HospitalComment on above: Performed By: #### CBC ####[facility] Shohbdxdwu203[address] [place], [place] [address]Dr.Airam DeuceNeutrophils/100 WBC (Bld)68.2 %Normal 43.0-75.0The [facility] HospitalComment on above:Performed By: #### CBC ####[facility] Swjhmpltlw36[address] [place] [address]Dr. Airam TripathiPlatelet mean volume (Bld) [Entitic vol]9.7 fLNormal9.5-13.5The [facility] HospitalComment on above:Performed By: #### CBC ####[facility] Fuujlycfsx394[address] [place], [place] [address]Dr.Airam FyxrtOOF639 103/ul Inqqlx058-923Bah [facility] HospitalComment on above:Performed By: #### CBC ####[facility] Vittepkfxn67[address] [place], [place] [address]Dr. Airam TripathiRBC3.19 106/ulCritically low4.20-5.40The [facility] HospitalComment on above:Performed By: #### CBC ####[facility] Emyfvxcams483[address] [place], [place] [address]Dr.Airam ChangWBC9.0 103/ulNormal4.0-11.0The [facility] HospitalComment on above:Performed By: #### CBC ####[facility] Glmlqstrjf79[address] [place], [place] [address]Dr.Airam TripathiPROF 14(COMP METB)on 11-48-8025Tqxhbrt [Mass/Vol]3.4 g/dLNormal3.4-5.0The [facility] Comment on above:Performed By: #### CMP ####[facility] Dcwszerfcs686[address] [place], [place] [address]Dr.Airam TripathiAlbumin/Globulin [Mass ratio] 1.0 {ratio}NormalThe [facility] HospitalComment on above:Performed By: #### CMP ####[facility] Zixpkspmvs067[address] [place], [place] [address]Dr. Airam TripathiALP [Catalytic activity/Vol]153 U/LCritically psid53-150Rob [facility] HospitalComment on above:Performed By: #### CMP ####[facility] Ayapgkzqye017[address] [place], [place] [address]Dr.Yilan ChangALT [Catalytic activity/Vol]21 U/YEwokzw75-74Wfx [facility] HospitalComment on above:Performed By: #### CMP ####[facility] Gpoffdkkhq044[address] [place], [place] [address]Dr.Airam ChangAnion gap [Moles/Vol]13.6 mmol/LNormalThe [facility] Comment on above:Performed By: #### CMP ####[facility] Zadqojaija12[address] [place], [place] [address]Dr.Airam ChangAST [Catalytic activity/Vol]23 U/QGrshto21-50Fpb [facility] HospitalComment on above:Performed By: #### CMP ####[facility] Nuspsqtgsr37[address] [place], [place] [address]Dr. Airam ChangBilirubin [Mass/Vol]0.2 mg/dLNormal0.2-1.0The [facility] Comment on above:Performed By: #### CMP ####[facility] Yqioxuwydj0109[address] [place], [place] [address]Dr.Yineil ChangCalcium [Mass/Vol]8.4 mg/dL Critically low8.5-10.1The [facility] HospitalComment on above:Performed By: #### CMP ####[facility] Ldtydnlevz314[address] [place], [place] [address]Dr. Yineil ChangChloride [Moles/Vol]97 mmol/LCritically sjw17-482Mpg [facility] HospitalComment on above:Performed By: #### CMP ####[facility] Klqinvoclj9[address] [place], [place] [address]Dr.Yineil ChangCO2 [Moles/Vol] 25.2 mmol/KSfghev75.0-32.0The [facility] HospitalComment on above:Performed By: #### CMP ####[facility] Wxnuvfqguq20[address] [place], [place] [address]Dr.Yilan ChangCreatinine [Mass/Vol]1.58 mg/dLCritically high0.55-1.02The [facility] HospitalComment on above:Performed By: #### CMP ####[facility] Jqljthvvao55[address] [place], [place] [address]Dr.Airam ChangEGFR-AF APBESFLU87 mL/min/1.35b8Gmeixkhiqe low>=60The [facility] HospitalComment on above: Performed By: #### CMP ####[facility] Rrzfaqinyw230[address] [place], [place] [address]Dr.Selenalan ChangEGFR-NON AF JRQEIZJG73 mL/min/1.73m2 Critically low>=60The [facility] HospitalComment on above:Performed By: #### CMP ####[facility] Xmllsedghi273[address] [place], [place] [address]Dr. Airam TripathiGlobulin (S) [Mass/Vol]3.4 g/dLNormalThe [facility] HospitalComment on above:Performed By: #### CMP ####[facility] Lvopjjwsjr0849[address] [place], [place] [address]Dr.Airam ChangGlucose [Mass/Vol]74 mg/cOJcmyxa56-[address] [facility] HospitalComment on above:Performed By: #### CMP ####[facility] Cowziltlft6[address] [place], [place] [address]Dr.Airam Tripathi Potassium [Moles/Vol]4.8 mmol/LNormal3.5-5.1The [facility] HospitalComment on above:Performed By: #### CMP ####[facility] Nzgymzdabp146[address] [place], [place] [address]Dr.Airam TripathiProtein [Mass/Vol]6.8 g/dLNormal6.4-8.[address] [facility] HospitalComment on above:Performed By: #### CMP ####[facility] Vwivwoswng550[address] [place], [place] [address]Dr.Airam ChangSodium [Moles/Vol]131 mmol/LCritically gtl544-646Ifk [facility] HospitalComment on above:Performed By: #### CMP ####[facility] Iqrrssnhan530[address] [place], [place] [address]Dr.Airam TripathiUrea nitrogen [Mass/Vol]31.0 mg/dL Critically high7.0-18.0The [facility] HospitalComment on above:Performed By: #### CMP ####[facility] Ilseknfmbs[address] [place] [address]Dr. Airam ChangUrea nitrogen/Creatinine [Mass ratio]19.6 mg/mgNormalThe [facility] HospitalComment on above:Performed By: #### CMP ####[facility] Nuibvcitpm18[address] [place], [place] [address]Dr.Airam ChangOSMOLALITYon 96-30-0516Zogsrhdpuz [Osmolality]281 mosm/qkJoxbko765-363Hko [facility] Comment on above:Performed By: #### OSMO ####[facility] Avdpptwakj840[address] [place], [place] [address]Dr. Airam ChangCBC AUTO DIFFon 05-17-2022 BASO #0.1 103/ulNormal0.0-0.1The [facility] HospitalComment on above:Performed By: #### CBC ####[facility] Lgqffdetgp[address] [place], [place] [address]Dr.Airam ChangBasophils/100 WBC (Bld)0.6 %Normal0.2-2.0The [facility] HospitalComment on above:Performed By: #### CBC ####[facility] Cxvhbndbbs118[address] [place], [place] [address]Dr.Selenalan ChangEO #0.2 103/ul Normal0.0-0.7The [facility] HospitalComment on above:Performed By: #### CBC ####[facility] Dkuhhbqetm40350[address] [place], [place] [address]Dr. Airam ChangEosinophils/100 WBC (Bld)1.9 %Normal0.9-7.0The [facility] Comment on above:Performed By: #### CBC ####[facility] Yocpfxgdwo703[address] [place], [place] [address]Dr.Airam ChangErythrocyte distribution width (RBC) [Ratio]12.9 %Tsekcb90.0-15.0The [facility] HospitalComment on above: Performed By: #### CBC ####[facility] Qunwtrblwq[address] [place], [place] [address]Dr.Airam ChangHematocrit (Bld) [Volume fraction]32.1 % Critically low36.0-48.0The [facility]Comment [facility] above:Performed By: #### CBC ####[facility] Qwjtffymvp35[address] [place], [place] [address]Dr. Airam TripathiHemoglobin (Bld) [Mass/Vol]9.9 g/dLCritically low12.0-16.0The [facility]Comment on above:Performed By: #### CBC ####[facility] Czrkhvnmyz[address] [place], [place] [address]Dr.Airam TripathiIG #0.05 10e3/ulCritically high0.00-0.03The [facility] HospitalComment on above:Performed By: #### CBC ####[facility] Okqzggtxgw00[address] [place], [place] [address]Dr.Airam TripathiIG %0.6 %Critically high0.0-0.5The [facility] HospitalComment on above:Performed By: #### CBC ####[facility] Wyynlhnvth08[address] [place], [place] [address]Dr.Airam TripathiLYMPH #1.3 103/ulNormal1.2-3.8The [facility] HospitalComment on above:Performed By: #### CBC ####[facility] Qymmrbhjog76[address] [place], [place] [address]Dr.Airam TripathiLymphocytes/100 WBC (Bld)15.2 %Critically low20.5-60.0The [facility]Comment on above: Performed By: #### CBC ####[facility] Icbqptppvz064[address] [place], [place] [address]Dr.Airam TripathiMANUAL DIFF REQNONormalThe [facility] HospitalComment on above:Performed By: #### CBC ####[facility] Tgkpetvcgx216[address] [place], [place] [address]Dr.Airam [facility]iK[facility] (RBC) [Entitic mass]30.0 cmMqiyuy67.7-34.0The [facility] HospitalComment on above: Performed By: #### CBC ####[facility] Qptuwjwpri318[address] [place], [place] [address]Dr.Airam TripathiMCHC (RBC) [Mass/Vol]30.8 g/dLNormal 29.9-35.2The [facility] HospitalComment on above:Performed By: #### CBC ####[facility] Gjbftirtgh022[address] [place], [place] [address]Dr. Airam TripathiMCV (RBC) [Entitic vol]97.3 uZGgrvvz77.0-99.0The [facility] Comment on above:Performed By: #### CBC ####[facility] Zuzotlevil[address] [place], [place] [address]Dr.Airam TripathiMONO #0.5 103/ulNormal0.3-0.[address] [facility] HospitalComment on above:Performed By: #### CBC ####[facility] Najmawvgzn9[address] [place], [place] [address]Dr.Airam Tripathi Monocytes/100 WBC (Bld)5.4 %Normal1.7-12.0The [facility] HospitalComment on above: Performed By: #### CBC ####[facility] Xnlrljvhzt11[address] [place], [place] [address]Dr.Airam TripathiNEUT #6.5 103/ulNormal1.4-6.5The [facility] HospitalComment on above:Performed By: #### CBC ####[facility] Tolqogrchb4829[address] [place], [place] [address]Dr.Airam TripathiNeutrophils/100 WBC (Bld)76.3 %Critically high43.0-75.0The [facility] HospitalComment on above: Performed By: #### CBC ####[facility] Bshecgerlz696[address] [place], [place] [address]Dr.Airam TripathiPlatelet mean volume (Bld) [Entitic vol] 10.1 fLNormal9.5-13.5The [facility] HospitalComment on above:Performed By: #### CBC ####[facility] Vzaytpitfu384[address] [place], [place] [address]Dr. Selenalan CyfcxXOL076 103/hzXmznsf348-928Umw [facility] HospitalComment on above: Performed By: #### CBC ####[facility] Entzzyvypy[address] [place] [address]Dr.Airam ChangRBC3.30 106/ulCritically low4.20-5.40The [facility] HospitalComment on above:Performed By: #### CBC ####[facility] Hgxfkebxiq75380[address] [place], [place] [address]Dr.Airam ChangWBC8.5 103/ul Normal4.0-11.0The [facility] HospitalComment on above:Performed By: #### CBC ####[facility] Wrldevcdya[address] [place], [place] [address]Dr. Selenalan ChangPROF 14(COMP METB)on 46-23-5863Ueklcnn [Mass/Vol]3.1 g/dLCritically low3.4-5.0The [facility] HospitalComment on above:Performed By: #### CMP ####[facility] Osfbstvejb303[address] [place], [place] [address]Dr. Airam ChangAlbumin/Globulin [Mass ratio]0.9 {ratio}NormalThe [facility] Comment on above:Performed By: #### CMP ####[facility] Prvbzapfyd[address] [place], [place] [address]Dr.Selenalan ChangALP [Catalytic activity/Vol] 162 U/LCritically glwd45-595Zwf [facility] HospitalComment on above:Performed By: #### CMP ####[facility] Wfhykyjmqi014[address] [place], [place] [address]Dr.Yilan ChangALT [Catalytic activity/Vol]22 U/OEwfpcq30-39Uit [facility] HospitalComment on above:Performed By: #### CMP ####[facility] Xitgpgjdcx147[address] [place], [place] [address]Dr.Selenalan ChangAnion gap [Moles/Vol]9.4 mmol/LNormalThe [facility] HospitalComment on above:Performed By: #### CMP ####[facility] Lrwhxdtfje208[address] [place], [place] [address]Dr.Yilan ChangAST [Catalytic activity/Vol]26 U/VObgsyp57-25Zdk [facility] HospitalComment on above:Performed By: #### CMP ####[facility] Dqoixhxfky[address] [place] [address]Dr.Yilan ChangBilirubin [Mass/Vol]0.2 mg/dLNormal0.2-1.0The [facility] HospitalComment on above:Performed By: #### CMP ####[facility] Ortxcffdly[address] [place], [place] [address]Dr.Yilan ChangCalcium [Mass/Vol]8.2 mg/dLCritically low8.5-10.1The [facility] HospitalComment on above:Performed By: #### CMP ####[facility] Hmhsbfgitg[address] [place], [place] [address]Dr.Yilan ChangChloride [Moles/Vol]103 mmol/BFxncam40-369Nvl [facility] HospitalCommclaren flint on above:Performed By: #### CMP ####[facility] Vqsyzwpyeu[address] [place], [place] [address]Dr.Yilan ChangCO2 [Moles/Vol]24.8 mmol/ALvhuas71.0-32.0The [facility] HospitalComment on above:Performed By: #### CMP ####[facility] Dhhufwvjus[address] [place], [place] [address]Dr.Yilan ChangCreatinine [Mass/Vol]1.19 mg/dLCritically high0.55-1.02The [facility] HospitalCommclaren flint on above:Performed By: #### CMP ####[facility] Hnthecxqzn[address] [place], [place] [address]Dr.Yilan ChangEGFR-AF MZOWWNVB58 mL/min/1.73m2 Critically low>=60The [facility] HospitalComment on above:Performed By: #### CMP ####[facility] Vzvgbvirhj[address] [place], [place] [address]Dr. Yilan ChangEGFR-NON AF JYGBZKJB34 mL/min/1.87a5Rvbqxumsaz low>=60The [facility] on above:Performed By: #### CMP ####[facility] Nymhbbuvjv[address] [place], [place] [address]Dr.Yilan ChangGlobulin (S) [Mass/Vol]3.6 g/dLNormalThe [facility] HospitalComment on above:Performed By: #### CMP ####[facility] [address]cy[address]aws[address] [place] [address]Dr.Airam ChangGlucose [Mass/Vol]75 mg/xBBmktaw35-649[facility] Comment on above:Performed By: #### CMP ####[facility] Hjeyjufcdv[address] [place] [address]Dr.Airam ChangPotassium [Moles/Vol]5.2 mmol/LCritically high3.5-5.1The [facility] HospitalComment on above:Performed By: #### CMP ####[facility] Cjbmjppjpz[address] [place], [place] [address]Dr.Yilan ChangProtein [Mass/Vol]6.7 g/dLNormal6.4-8.2The [facility] Comment on above:Performed By: #### CMP ####[facility] Yidonzzcax9924[address] [place], [place] [address]Dr.Selenalan ChangSodium [Moles/Vol]132 mmol/L Critically igf137-186Oyg [facility] HospitalComment on above:Performed By: #### CMP ####[facility] Qvexrlquax2316[address] [place], [place] [address]Dr. Airam ChangUrea nitrogen [Mass/Vol]28.0 mg/dLCritically high7.0-18.0The [facility] HospitalComment on above:Performed By: #### CMP ####[facility] Dkiuiifdig[address] [place], [place] [address]Dr.Selenalan ChangUrea nitrogen/Creatinine [Mass ratio]23.5 mg/mgNormalThe [facility] HospitalComment on above:Performed By: #### CMP ####[facility] Gncucvnzzr9[address] [place], [place] [address]Dr.Airam ChangOSMOLALITYon 30-00-0336Owglfiikjm [Osmolality]281 mosm/ikOpvjrg222-379Gkp [facility] HospitalComment on above: Performed By: #### OSMO ####[facility] Yscklkdgjs67[address] [place], [place] [address]Dr. Airam TripathiCBC AUTO DIFFon 18-29-2269DGIA #0.1 103/ulNormal0.0-0.1The [facility] HospitalComment on above:Performed By: #### CBC ####[facility] Semcdyoxhf2225[address] [place], [place] [address]Dr. Yilan ChangBasophils/100 WBC (Bld)0.5 %Normal0.2-2.0The [facility] HospitalComment on above:Performed By: #### CBC ####[facility] Uwnnpymjbi67[address] [place], [place] [address]Dr.Yilan ChangEO #0.2 103/ulNormal0.0-0.7The [facility] HospitalComment on above:Performed By: #### CBC ####[facility] Qfennxcdap100[address] [place], [place] [address]Dr.Yilan ChangEosinophils/100 WBC (Bld)2.1 %Normal0.9-7.0The [facility] HospitalComment on above:Performed By: #### CBC ####[facility] Dxugrtprfb179[address] [place], [place] [address]Dr.Yilan ChangErythrocyte distribution width (RBC) [Ratio]12.9 %Normal 11.0-15.0The [facility] HospitalComment on above:Performed By: #### CBC ####[facility] Rjbckrvueo55[address] [place], [place] [address]Dr. Yilan ChangHematocrit (Bld) [Volume fraction]31.9 %Critically low36.0-48.0The [facility] HospitalComment on above:Performed By: #### CBC ####[facility] Basduwsqgt130[address] [place], [place] [address]Dr.Yilan ChangHemoglobin (Bld) [Mass/Vol]9.7 g/dLCritically low12.0-16.0The [facility] HospitalComment on above:Performed By: #### CBC ####[facility] Okirvancrb758[address] [place], [place] [address]Dr.Yilan ChangIG #0.06 10e3/ulCritically high0.00-0.[address] [facility] HospitalComment on above:Performed By: #### CBC ####[facility] Iislnygmpv[address] [place] [address]Dr.Airam TripathiIG % 0.7 %Critically high0.0-0.5The [facility] HospitalComment on above:Performed By: #### CBC ####[facility] Oqpnvnzyvo676[address] [place], [place] [address]Dr.Airam TripathiLYMPH #1.9 103/ulNormal1.2-3.8The [facility] HospitalComment on above:Performed By: #### CBC ####[facility] Zknbjazpqt940[address] [place], [place] [address]Dr.Airam TripathiLymphocytes/100 WBC (Bld)21.1 %Normal 20.5-60.0The [facility] HospitalComment on above:Performed By: #### CBC ####[facility] Tyfrpevhru2909[address] [place], [place] [address]Dr. Airam TripathiMANUAL DIFF REQNONormalThe [facility] HospitalComment on above: Performed By: #### CBC ####[facility] Ifldimptic6249[address] [place], [place] [address]Dr.Airam TripathiMCH (RBC) [Entitic mass]29.7 pgNormal 26.7-34.0The [facility] HospitalComment on above:Performed By: #### CBC ####[facility] Kduruaftcs136[address] [place], [place] [address]Dr. Airam TripathiMCHC (RBC) [Mass/Vol]30.4 g/zIEjgsus30.9-35.2The [facility] Comment on above:Performed By: #### CBC ####[facility] Dysrvzruqm526[address] [place], [place] [address]Dr.Airam TripathiMCV (RBC) [Entitic vol]97.6 fL Sxyhlq36.0-99.0The [facility] HospitalComment on above:Performed By: #### CBC ####[facility] Pnuxrjutfi163[address] [place], [place] [address]Dr. Airam TripathiMONO #0.6 103/ulNormal0.3-0.8The [facility] HospitalComment on above: Performed By: #### CBC ####[facility] Ubccexwtzc[address] [place] [address]Dr.Selenalan ChangMonocytes/100 WBC (Bld)6.8 %Normal 1.7-12.0The [facility] HospitalComment on above:Performed By: #### CBC ####[facility] Vysceidkcr7[address] [place] [address]Dr. Selenalan ChangNEUT #6.3 103/ulNormal1.4-6.5The [facility] HospitalComment on above: Performed By: #### CBC ####[facility] Kioejxdnow[address] [place] [address]Dr.Selenalan ChangNeutrophils/100 WBC (Bld)68.8 %Normal 43.0-75.0The [facility] HospitalComment on above:Performed By: #### CBC ####[facility] Mchnsptlsg270[address] [place], [place] [address]Dr. Airam TripathiPlatelet mean volume (Bld) [Entitic vol]9.6 fLNormal9.5-13.5The [facility] HospitalComment on above:Performed By: #### CBC ####[facility] Kdlufndviy715[address] [place], [place] [address]Dr.Airam LolkuWKS199 103/ul Twtrlf729-271Hqk [facility] HospitalComment on above:Performed By: #### CBC ####[facility] Qtqjspukjh8[address] [place] [address]Dr. Airam ChangRBC3.27 106/ulCritically low4.20-5.40The [facility] HospitalCommclaren flint on above:Performed By: #### CBC ####[facility] Qsrhxmkdap[address] [place], [place] [address]Dr.Airam ChangWBC9.1 103/ulNormal4.0-11.0The [facility] HospitalCommclaren flint on above:Performed By: #### CBC ####[facility] Hltucoxkia774[address] [place], [place] [address]Dr.Selenalan ChangPROF 14(COMP METB)on 21-68-8134Uxhttkw [Mass/Vol]3.3 g/dLCritically low3.4-5.0The [facility] HospitalComment on above:Performed By: #### CMP ####[facility] Lfpxhqsvfq[address] [place] [address]Dr.Airam Tripathi Albumin/Globulin [Mass ratio]1.0 {ratio}NormalThe [facility] HospitalComment on above:Performed By: #### CMP ####[facility] Kkdthggfyz839[address] [place], [place] [address]Dr.Selenaneil DeuceALP [Catalytic activity/Vol]152 U/L Critically hgjh65-438Vjx [facility] HospitalComment on above:Performed By: #### CMP ####[facility] Bvbkfexhiu1439[address] [place], [place] [address]Dr. Airam DeuceALT [Catalytic activity/Vol]23 U/QEejlkd21-17Gax [facility] Comment on above:Performed By: #### CMP ####[facility] Wjsbzbxjra529[address] [place], [place] [address]Dr.Airam DeuceAnion gap [Moles/Vol]12.0 mmol/LNormalThe [facility] HospitalComment on above:Performed By: #### CMP ####[facility] Okvqgjrimj716[address] [place], [place] [address]Dr. Airam ChangAST [Catalytic activity/Vol]25 U/SOghdsn65-35Ivi [facility] Comment on above:Performed By: #### CMP ####[facility] Tsxjcjshuq0717[address] [place], [place] [address]Dr.Airam ChangBilirubin [Mass/Vol]0.2 mg/dL Normal0.2-1.0The [facility] HospitalComment on above:Performed By: #### CMP ####[facility] Qhsmtitikn680[address] [place], [place] [address]Dr. Airam ChangCalcium [Mass/Vol]8.2 mg/dLCritically low8.5-10.1The [facility] HospitalComment on above:Performed By: #### CMP ####[facility] Zykekcruyq8459[address] [place], [place] [address]Dr.Airam ChangChloride [Moles/Vol]100 mmol/HNoyxqg65-495Hcw [facility] HospitalComment on above:Performed By: #### CMP ####[facility] Pdiyqyzmqg47230[address] [place], [place] [address]Dr.Yilan ChangCO2 [Moles/Vol]24.8 mmol/HUbvbbt72.0-32.0The [facility] HospitalComment on above:Performed By: #### CMP ####[facility] Htbhzsyceq556[address] [place], [place] [address]Dr.Yilan ChangCreatinine [Mass/Vol]1.46 mg/dLCritically high0.55-1.02The [facility] HospitalComment on above:Performed By: #### CMP ####[facility] Hyndoftblf530[address] [place], [place] [address]Dr.Yilan ChangEGFR-AF TXDDKPJM09 mL/min/1.73m2 Critically low>=60The [facility] HospitalComment on above:Performed By: #### CMP ####[facility] Zzncoflutn286[address] [place], [place] [address]Dr. Yilan ChangEGFR-NON AF OOKTRRSF51 mL/min/1.97a1Hjzdcchrgm low>=60The [facility] HospitalComment on above:Performed By: #### CMP ####[facility] Psmmrsyasy27500[address] [place], [place] [address]Dr.Yilan ChangGlobulin (S) [Mass/Vol]3.3 g/dLNormalThe [facility] HospitalComment on above:Performed By: #### CMP ####[facility] Pesomwswdr12[address] [place], [place] [address]Dr.Yilan ChangGlucose [Mass/Vol]86 mg/zHLkhvqh55-189Cyr [facility] Comment on above:Performed By: #### CMP ####[facility] Stgvdpruuo924[address] [place], [place] [address]Dr.Yilan ChangPotassium [Moles/Vol]4.8 mmol/LNormal3.5-5.1The [facility] HospitalComment on above:Performed By: #### CMP ####[facility] Yzxeahlrbx908[address] [place], [place] [address]Dr. Yilan ChangProtein [Mass/Vol]6.6 g/dLNormal6.4-8.2The [facility] HospitalComment on above:Performed By: #### CMP ####[facility] Jwokxpdhsi868[address] [place], [place] [address]Dr.Airam ChangSodium [Moles/Vol]132 mmol/LCritically qpz839-769Suz [facility] HospitalComment on above:Performed By: #### CMP ####[facility] Aslcrdeqva879[address] [place], [place] [address]Dr. Airam ChangUrea nitrogen [Mass/Vol]34.0 mg/dLCritically high7.0-18.0The [facility] HospitalComment on above:Performed By: #### CMP ####[facility] Pkddrfrpkr9417[address] [place], [place] [address]Dr.Airam ChangUrea nitrogen/Creatinine [Mass ratio]23.3 mg/mgNoCleveland Clinic Fairview HospitalComment on above:Performed By: #### CMP ####[facility] Dcxydwlntu495[address] [place], [place] [address]Dr.Airam ChangOSMOLALITYon 73-65-0758Ezzozrjsmn [Osmolality]284 mosm/glXodqxb820-205Iju [facility] HospitalComment on above: Performed By: #### OSMO ####[facility] Fahbaectky[address] [place], [place] [address]Dr. Airam ChangXR LSPINE MIN 4 VIEWSon 60-94-2342SX LSPINE MIN 4 VIEWSNormUC [facility] HospitalCB AUTO DIFFon 62-51-6728UMNK #0.1 103/ulNormal0.0-0.1[facility] SystemCommclaren flint on above:Performed By: #### CBC ####[facility] Iayvymajpz340[address] [place], [place] [address]Dr. Airam ChangBasophils/100 WBC (Bld)0.6 %Normal0.2-2.0[facility] SystemComment on above:Performed By: #### CBC ####[facility] Euwkpgajwm700[address] [place], [place] [address]Dr.Yilan ChangEO #0.3 103/ulNormal0.0-0.7The [facility]Comment on above:Performed By: #### CBC ####[facility] Fospoawecw196[address] [place], [place] [address]Dr.Yilan ChangEosinophils/100 WBC (Bld)4.2 %Normal0.9-7.0The [facility] HospitalComment on above:Performed By: #### CBC ####[facility] Tuldbvxavl674[address] [place], [place] [address]Dr.Yilan ChangErythrocyte distribution width (RBC) [Ratio]13.4 %Normal 11.0-15.0The [facility] HospitalComment on above:Performed By: #### CBC ####[facility] Hkgzatxedf097[address] [place], [place] [address]Dr. Yilan ChangHematocrit (Bld) [Volume fraction]30.7 %Critically low36.0-48.0The [facility] HospitalComment on above:Performed By: #### CBC ####[facility] Rdruotbdaq8519[address] [place], [place] [address]Dr.Selenalan ChangHemoglobin (Bld) [Mass/Vol]9.6 g/dLCritically low12.0-16.0The [facility] HospitalComment on above:Performed By: #### CBC ####[facility] Dkfzlvaorl207[address] [place], [place] [address]Dr.Yilan ChangIG #0.05 10e3/ulCritically high0.00-0.[address] [facility] HospitalComment on above:Performed By: #### CBC ####[facility] Oorwphcmaw498[address] [place], [place] [address]Dr.Yilan ChangIG % 0.6 %Critically high0.0-0.5The [facility] HospitalComment on above:Performed By: #### CBC ####[facility] Tsmytygyfo2529[address] [place], [place] [address]Dr.Yilan ChangLYMPH #1.9 103/ulNormal1.2-3.8The [facility] HospitalComment on above:Performed By: #### CBC ####[facility] Embsjdzfsz9[address] [place] [address]Dr.Airam TripathiLymphocytes/100 WBC (Bld)23.5 %Normal 20.5-60.0The [facility] HospitalComment on above:Performed By: #### CBC ####[facility] Sxuvgetmrm984[address] [place], [place] [address]Dr. Airam TripathiMANUAL DIFF REQNONormalThe [facility] HospitalComment on above: Performed By: #### CBC ####[facility] Gimqmaxjnw336[address] [place], [place] [address]Dr.Airam TripathiH (RBC) [Entitic mass]30.8 pgNormal 26.7-34.0The [facility] HospitalComment on above:Performed By: #### CBC ####[facility] Mvvzoyvets884[address] [place], [place] [address]Dr. Airam TripathiHC (RBC) [Mass/Vol]31.3 g/eAEstlfg43.9-35.2The [facility] Comment on above:Performed By: #### CBC ####[facility] Gobrrsdscf845[address] [place], [place] [address]Dr.Airam TripathiMCV (RBC) [Entitic vol]98.4 fL Jqtjbr80.0-99.0The [facility] HospitalComment on above:Performed By: #### CBC ####[facility] Aykghixuxs38[address] [place], [place] [address]Dr. Airam TripathiMONO #0.6 103/ulNormal0.3-0.8The [facility] HospitalComment on above: Performed By: #### CBC ####[facility] Bzsxwjkmyj067[address] [place], [place] [address]Dr.Airam ChangMonocytes/100 WBC (Bld)7.4 %Normal 1.7-12.0The [facility] HospitalComment on above:Performed By: #### CBC ####[facility] Elgvulohmq286[address] [place], [place] [address]Dr. Airam TripathiNEUT #5.0 103/ulNormal1.4-6.5The [facility] HospitalComment on above: Performed By: #### CBC ####[facility] Tuopffffvm4[address] [place] [address]Dr.Airam TripathiNeutrophils/100 WBC (Bld)63.7 %Normal 43.0-75.0The [facility] Centerment on above:Performed By: #### CBC ####[facility] Lcigjmikfu8586 [place] [address]Dr. Airam TripathiPlatelet mean volume (Bld) [Entitic vol]9.5 fLNormal9.5-13.5The [facility] HospitalComment on above:Performed By: #### CBC ####[facility] Riqqxdtpfx106[address] [place], [place] [address]Dr.Airam TripathiPLT280 103/ul Cxmcqf853-833Lji [facility] HospitalComment on above:Performed By: #### CBC ####[facility] Rwlqoipthq4316[address] [place], [place] [address]Dr. Selenaneil DeuceRBC3.12 106/ulCritically low4.20-5.40The [facility] HospitalComment on above:Performed By: #### CBC ####[facility] Ffohtbavbj337[address] [place], [place] [address]Dr.Airam TripathiWBC7.9 103/ulNormal4.0-11.0The [facility] on above:Performed By: #### CBC ####[facility] Umilcrkoyo989[address] [place], [place] [address]Dr.Selenaneil TripathiPROF 14(COMP METB)on 45-93-7770Poskdts [Mass/Vol]3.1 g/dLCritically low3.4-5.0The [facility] HospitalComment on above:Performed By: #### CMP ####[facility] Midaoonrzs178[address] [place], [place] [address]Dr.Selenaneil Tripathi Albumin/Globulin [Mass ratio]0.9 {ratio}NormalThe [facility] on above:Performed By: #### CMP ####[facility] Zakjcbkrbh64[address] [place], [place] [address]Dr.Airam TripathiALP [Catalytic activity/Vol]140 U/L Critically wopo12-499Fml [facility] HospitalComment on above:Performed By: #### CMP ####[facility] Pcxqtkdabl[address] [place] [id number]. Yilan ChangALT [Catalytic activity/Vol]24 U/QNwjrcq45-36Cji [facility] Comment on above:Performed By: #### CMP ####[facility] Bsayjvtutc20[address] [place] [id number].Yilan ChangAnion gap [Moles/Vol]11.2 mmol/LNormalThe [facility] HospitalComment on above:Performed By: #### CMP ####[facility] Ftcqefkdsu[address] [place] [address]Dr. Yilan ChangAST [Catalytic activity/Vol]26 U/QEczfpw86-22Dac [facility] Comment on above:Performed By: #### CMP ####[facility] Cjkpxbsqci75[address] [place] [address]Dr.Yilan ChangBilirubin [Mass/Vol]0.2 mg/dL Normal0.2-1.0The [facility] HospitalComment on above:Performed By: #### CMP ####[facility] Rznwebuksi[address] [place], [place] [address]Dr. Yilan ChangCalcium [Mass/Vol]8.3 mg/dLCritically low8.5-10.1The [facility] HospitalComment on above:Performed By: #### CMP ####[facility] Jobssudort69[address] [place] [address]Dr.Yilan ChangChloride [Moles/Vol]101 mmol/CGrvhaj17-067Etk [facility] HospitalComment on above:Performed By: #### CMP ####[facility] Lkrodbwikm6[address] [place] [address]Dr.Yilan ChangCO2 [Moles/Vol]25.5 mmol/UChupkz10.0-32.0The [facility] HospitalComment on above:Performed By: #### CMP ####[facility] Fieuzfkoqt8[address] [place] [address]Dr.Yilan ChangCreatinine [Mass/Vol]1.43 mg/dLCritically high0.55-1.02The [facility] HospitalComment on above:Performed By: #### CMP ####[facility] Cddepsslil49[address] [place] [address]Dr.Yilan ChangEGFR-AF WCZFLSNQ03 mL/min/1.73m2 Critically low>=60The [facility] HospitalComment on above:Performed By: #### CMP ####[facility] Dljcbnsbri5[address] [place] [address]Dr. Yilan ChangEGFR-NON AF HUPPEAAZ72 mL/min/1.13c2Dfibewlrwq low>=60The [facility] HospitalComment on above:Performed By: #### CMP ####[facility] Jakuzsplgi[address] [place], [place] [address]Dr.Yilan ChangGlobulin (S) [Mass/Vol]3.3 g/dLNormalThe [facility] HospitalComment on above:Performed By: #### CMP ####[facility] Dwgdxcapkm086[address] [place], [place] [address]Dr.Yilan ChangGlucose [Mass/Vol]74 mg/xGDnetqc24-250Ozl [facility] Comment on above:Performed By: #### CMP ####[facility] Dcqpgouqry6[address] [place], [place] [address]Dr.Yilan ChangPotassium [Moles/Vol]4.7 mmol/LNormal3.5-5.1The [facility] HospitalComment on above:Performed By: #### CMP ####[facility] Nlirveqkjb4499[address] [place], [place] [address]Dr. Yilan ChangProtein [Mass/Vol]6.4 g/dLNormal6.4-8.2The [facility] HospitalComment on above:Performed By: #### CMP ####[facility] Ggzvtihwym025[address] [place], [place] [address]Dr.Yilan ChangSodium [Moles/Vol]133 mmol/LCritically zdo622-154Xjg [facility] HospitalComment on above:Performed By: #### CMP ####[facility] Axahfansei[address] [place], [place] [address]Dr. Yilan ChangUrea nitrogen [Mass/Vol]38.0 mg/dLCritically high7.0-18.0The [facility] HospitalComment on above:Performed By: #### CMP ####[facility] Qltwxmsolc5212[address] [place], [place] [address]Dr.Selenalan ChangUrea nitrogen/Creatinine [Mass ratio]26.6 mg/mgNormalThOhioHealth Doctors HospitalComment on above:Performed By: #### CMP ####[facility] Bqmzogzuzy7[address] [place], [place] [address]Dr.Selenaneil ChangOSMOLALITYon 52-63-9300Qinrtpkvzp [Osmolality]292 mosm/xjBsvgqu775-474Irr [facility] HospitalComment on above: Performed By: #### OSMO ####[facility] Jqowyvafpa[address] [place], [place] [address]Dr. Selenaneil ChangCBC AUTO DIFFon 30-10-1436CHTX #0.0 103/ulNormal0.0-0.1The [facility] HospitalCommclaren flint on above:Performed By: #### CBC ####[facility] Tnualctxsc58[address] [place], [place] [address]Dr. Yilan ChangBasophils/100 WBC (Bld)0.5 %Normal0.2-2.0The [facility] on above:Performed By: #### CBC ####[facility] Bkdjiatfco[address] [place], [place] [address]Dr.Yilan ChangEO #0.2 103/ulNormal0.0-0.7The [facility] HospitalCommclaren flint on above:Performed By: #### CBC ####[facility] Aabwtbjhzh50[address] [place], [place] [address]Dr.Selenalan ChangEosinophils/100 WBC (Bld)3.4 %Normal0.9-7.0The [facility] HospitalComment on above:Performed By: #### CBC ####[facility] Fyrgevfiec[address] [place], [place] [address]Dr.Selenalan ChangErythrocyte distribution width (RBC) [Ratio]13.4 %Normal 11.0-15.0The [facility] HospitalComment on above:Performed By: #### CBC ####[facility] Twuxmamtpp[address] [place] [address]Dr. Airam TripathiHematocrit (Bld) [Volume fraction]31.6 %Critically low36.0-48.0The [facility] HospitalComment on above:Performed By: #### CBC ####[facility] Eelqwyfxtb0[address] [place] [address]Dr.Airam TripathiHemoglobin (Bld) [Mass/Vol]9.8 g/dLCritically low12.0-16.0The [facility] HospitalComment on above:Performed By: #### CBC ####[facility] Uzxaartbey[address] [place], [place] [address]Dr.Selenalan ChangIG #0.02 10e3/ulNormal0.00-0.03The [facility] HospitalComment on above:Performed By: #### CBC ####[facility] Eppskvjjia[address] [place], [place] [address]Dr.Airam ChangIG %0.3 %Normal 0.0-0.5The [facility] HospitalComment on above:Performed By: #### CBC ####[facility] Hxwlfoocle9[address] [place], [place] [address]Dr.Airam TripathiLYMPH #1.3 103/ulNormal1.2-3.8The [facility] HospitalComment on above:Performed By: #### CBC ####[facility] Iwlrepnxav6914[address] [place], [place] [address]Dr.Airam TripathiLymphocytes/100 WBC (Bld)21.7 %Lwiwrs75.5-60.0The [facility] HospitalComment on above:Performed By: #### CBC ####[facility] Lzshqkaipp[address] [place], [place] [address]Dr.Selenaneil TripathiMANUAL DIFF REQ NONormalThe [facility] HospitalComment on above:Performed By: #### CBC ####[facility] Uzpajblfzl7[address] [place], [place] [address]Dr. Airam TripathiMCH (RBC) [Entitic mass]30.7 siNrobfp94.7-34.0The [facility] Comment on above:Performed By: #### CBC ####[facility] [address] [place] [address]Dr.Airam BrookeHC (RBC) [Mass/Vol]31.0 g/dL Ycusfh24.9-35.2The [facility] HospitalComment on above:Performed By: #### CBC ####[facility] Lumcgygctc408[address] [place], [place] [address]Dr. Airam TripathiMCV (RBC) [Entitic vol]99.1 fLCritically high81.0-99.0The [facility] HospitalComment on above:Performed By: #### CBC ####[facility] Nsorjzdysb88230[address] [place], [place] [address]Dr.Airam TripathiMONO #0.3 103/ulNormal0.3-0.8The [facility] HospitalComment on above:Performed By: #### CBC ####[facility] Drbynbhukv2237[address] [place], [place] [address]Dr. Airam TripathiMonocytes/100 WBC (Bld)5.2 %Normal1.7-12.0The [facility] Comment on above:Performed By: #### CBC ####[facility] Srmsdckmnp426[address] [place], [place] [address]Dr.Airam TripathiNEUT #4.1 103/ulNormal1.4-6.[address] [facility] HospitalComment on above:Performed By: #### CBC ####[facility] Dinrjzvsgm9379[address] [place], [place] [address]Dr.Airam Tripathi Neutrophils/100 WBC (Bld)68.9 %Kxoetb70.0-75.0The [facility] HospitalComment on above:Performed By: #### CBC ####[facility] Nhmahhnwls5429[address] [place], [place] [address]Dr.Airam TripathiPlatelet mean volume (Bld) [Entitic vol] 9.8 fLNormal9.5-13.5The [facility] HospitalComment on above:Performed By: #### CBC ####[facility] Jrgdgudzcq505[address] [place], [place] [address]Dr. Yilan LewurOJP607 103/pxZpybnl084-988Hyb [facility] HospitalComment on above: Performed By: #### CBC ####[facility] Pdsvdkumyp[address] [place] [address]Dr.Yineil ChangRBC3.19 106/ulCritically low4.20-5.40The [facility] HospitalComment on above:Performed By: #### CBC ####[facility] Dqiuaallys264[address] [place], [place] [address]Dr.Yineil ChangWBC5.9 103/ul Normal4.0-11.0The [facility] HospitalComment on above:Performed By: #### CBC ####[facility] Dxnkngpner057[address] [place], [place] [address]Dr. Selenalan ChangPROF 14(COMP METB)on 54-13-3875Hdivxek [Mass/Vol]2.9 g/dLCritically low3.4-5.0The [facility] HospitalComment on above:Performed By: #### CMP ####[facility] Vpsdtaywqe35750[address] [place], [place] [address]Dr. Airam ChangAlbumin/Globulin [Mass ratio]0.9 {ratio}NormalThe [facility] Comment on above:Performed By: #### CMP ####[facility] Idjfwhzgby264[address] [place], [place] [address]Dr.Airam ChangALP [Catalytic activity/Vol] 127 U/LCritically rtrg24-925Spq [facility] HospitalComment on above:Performed By: #### CMP ####[facility] Spyomadawb003[address] [place], [place] [address]Dr.Airam ChangALT [Catalytic activity/Vol]22 U/BUllizo53-34Fll [facility] HospitalComment on above:Performed By: #### CMP ####[facility] Pdmsmzqten36360[address] [place], [place] [address]Dr.Airam TripathiAnion gap [Moles/Vol]6.7 mmol/LNormalThe [facility] HospitalComment on above:Performed By: #### CMP ####[facility] Uslbldqxkg946[address] [place], [place] [address]Dr.Yilan ChangAST [Catalytic activity/Vol]24 U/BIvqqqh05-58Fqe [facility] HospitalComment on above:Performed By: #### CMP ####[facility] Rkbzmvfgpx44480[address] [place], [place] [address]Dr.Yilan ChangBilirubin [Mass/Vol]0.2 mg/dLNormal0.2-1.0The [facility] HospitalComment on above:Performed By: #### CMP ####[facility] Ylnvnyynxl[address] [place], [place] [address]Dr.Yilan ChangCalcium [Mass/Vol]8.2 mg/dLCritically low8.5-10.1The [facility] HospitalComment on above:Performed By: #### CMP ####[facility] Putphjqnfn138[address] [place], [place] [address]Dr.Yilan ChangChloride [Moles/Vol]105 mmol/GRzwnwx07-413Vvb [facility] HospitalComment on above:Performed By: #### CMP ####[facility] Wudbguyaug7119[address] [place], [place] [address]Dr.Yilan ChangCO2 [Moles/Vol]28.2 mmol/VZwfntn00.0-32.0The [facility] HospitalComment on above:Performed By: #### CMP ####[facility] Jqrzgjnzjc350[address] [place], [place] [address]Dr.Yilan ChangCreatinine [Mass/Vol]1.22 mg/dLCritically high0.55-1.02The [facility] HospitalComment on above:Performed By: #### CMP ####[facility] Khhpibeevj383[address] [place], [place] [address]Dr.Yilan ChangEGFR-AF KRPAGRFW22 mL/min/1.73m2 Critically low>=60The [facility] HospitalComment on above:Performed By: #### CMP ####[facility] Nqekyndomn56[address] [place], [place] [address]Dr. Yilan ChangEGFR-NON AF LANZBGDQ38 mL/min/1.36z1Ktslidqwig low>=60The [facility] HospitalComment on above:Performed By: #### CMP ####[facility] Tyrymapdkz0449[address] [place], [place] [address]Dr.Yilan ChangGlobulin (S) [Mass/Vol]3.2 g/dLNoCleveland Clinic Fairview HospitalComment on above:Performed By: #### CMP ####[facility] Uakkapwjsp3489[address] [place], [place] [address]Dr.Selenalan ChangGlucose [Mass/Vol]77 mg/nVNbqcgr76-260Vjg [facility] Comment on above:Performed By: #### CMP ####[facility] Ilmrhotjye300[address] [place], [place] [address]Dr.Selenalan ChangPotassium [Moles/Vol]4.9 mmol/LNormal3.5-5.1The [facility] HospitalComment on above:Performed By: #### CMP ####[facility] Wrenfkxdxz485[address] [place], [place] [address]Dr. Selenalan ChangProtein [Mass/Vol]6.1 g/dLCritically low6.4-8.2The [facility] Comment on above:Performed By: #### CMP ####[facility] Inqlebbgbq974[address] [place], [place] [address]Dr.Selenalan ChangSodium [Moles/Vol]135 mmol/L Critically tee925-724Xhm [facility] HospitalComment on above:Performed By: #### CMP ####[facility] Skxltfsyve868[address] [place], [place] [address]Dr. Selenalan ChangUrea nitrogen [Mass/Vol]30.0 mg/dLCritically high7.0-18.0The [facility] HospitalComment on above:Performed By: #### CMP ####[facility] Bnsoqkamgv847[address] [place], [place] [address]Dr.Selenalan ChangUrea nitrogen/Creatinine [Mass ratio]24.6 mg/mgNoCleveland Clinic Fairview HospitalComment on above:Performed By: #### CMP ####[facility] Pkylxthnkl855[address] [place], [place] [address]Dr.Selenalan ChangOSMOLALITYon 49-86-7975Ozkqzcqvhw [Osmolality]289 mosm/wvBzyvbl270-224Zsj [facility] HospitalComment on above: Performed By: #### OSMO ####[facility] Gdewfrniyy[address] [place] [address]Dr. Airam TripathiCBC AUTO DIFFon 80-49-7520DEXF #0.0 103/ulNormal0.0-0.1The [facility] HospitalComment on above:Performed By: #### CBC ####[facility] Qvgnouhgzz07360[address] [place], [place] [address]Dr. Airam ChangBasophils/100 WBC (Bld)0.4 %Normal0.2-2.0The [facility] HospitalComment on above:Performed By: #### CBC ####[facility] Mgvkvqywcx5925[address] [place], [place] [address]Dr.Selenalan ChangEO #0.2 103/ulNormal0.0-0.7The [facility] HospitalComment on above:Performed By: #### CBC ####[facility] Gjoebrnmts786[address] [place], [place] [address]Dr.Airam ChangEosinophils/100 WBC (Bld)3.1 %Normal0.9-7.0The [facility] HospitalComment on above:Performed By: #### CBC ####[facility] Cmnvhwcssx762[address] [place], [place] [address]Dr.Airam ChangErythrocyte distribution width (RBC) [Ratio]13.8 %Normal 11.0-15.0The [facility] HospitalComment on above:Performed By: #### CBC ####[facility] Tlvxmjonwv20[address] [place], [place] [address]Dr. Airam ChangHematocrit (Bld) [Volume fraction]29.5 %Critically low36.0-48.0The [facility] HospitalComment on above:Performed By: #### CBC ####[facility] Aogiwzlmdx777[address] [place], [place] [address]Dr.Airam ChangHemoglobin (Bld) [Mass/Vol]9.2 g/dLCritically low12.0-16.0The [facility] HospitalComment on above:Performed By: #### CBC ####[facility] Khketpdolj34280[address] [place], [place] [address]Dr.Airam ChangIG #0.02 10e3/ulNormal0.00-0.03The [facility] HospitalComment on above:Performed By: #### CBC ####[facility] Niecthovsr[address] [place] [address]Dr.Airam TripathiIG %0.4 %Normal 0.0-0.5The [facility] HospitalComment on above:Performed By: #### CBC ####[facility] Tdplyvbfgf7525[address] [place], [place] [address]Dr.Airam TripathiLYMPH #0.8 103/ulCritically low1.2-3.8The [facility] HospitalComment on above:Performed By: #### CBC ####[facility] Wuyotbleso421[address] [place], [place] [address]Dr.Airam Dossmphocytes/100 WBC (Bld)14.0 %Critically low20.5-60.[address] [facility] HospitalComment on above:Performed By: #### CBC ####[facility] Bydfngjbak887[address] [place], [place] [address]Dr.Airam TripathiMANUAL DIFF REQNONormalThe [facility] HospitalComment on above:Performed By: #### CBC ####[facility] Fwkqhhlgro805[address] [place], [place] [address]Dr. Selenaneil TripathiK[facility] (RBC) [Entitic mass]30.4 rhUyapea69.7-34.0[facility] Comment on above:Performed By: #### CBC ####[facility] Nmexeqcjqw346[address] [place], [place] [address]Dr.Airam DeuceNASSAU UNIVERSITY [facility] (RBC) [Mass/Vol]31.2 g/dL Jpkrpg08.9-35.2The [facility] HospitalComment on above:Performed By: #### CBC ####[facility] Afchjjbdkg437[address] [place], [place] [address]Dr. Airam DeuceV (RBC) [Entitic vol]97.4 qANzrkqu99.0-99.0[facility] Comment on above:Performed By: #### CBC ####[facility] Kpmaacsufi184[address] [place], [place] [address]Dr.Airam TripathiMONO #0.3 103/ulNormal0.3-0.[address] [facility] HospitalComment on above:Performed By: #### CBC ####[facility] Ceayydtkzu33[address] [place] [address]Dr.Airam Tripathi Monocytes/100 WBC (Bld)5.6 %Normal1.7-12.0The [facility] HospitalComment on above: Performed By: #### CBC ####[facility] Sbsznfqudt648[address] [place], [place] [address]Dr.Airam TripathiNEUT #4.2 103/ulNormal1.4-6.5The [facility] HospitalComment on above:Performed By: #### CBC ####[facility] Aailmgscbe884[address] [place], [place] [address]Dr.Airam TripathiNeutrophils/100 WBC (Bld)76.5 %Critically high43.0-75.0The [facility] HospitalComment on above: Performed By: #### CBC ####[facility] Tvvwjdkhfl204[address] [place], [place] [address]Dr.Airam TripathiPlatelet mean volume (Bld) [Entitic vol] 9.4 fLCritically low9.5-13.5The [facility] HospitalComment on above:Performed By: #### CBC ####[facility] Jzvpayvyhl447[address] [place], [place] [address]Dr.Selenalan UcxusGLM081 103/tyDfuyii135-970Cey [facility] HospitalComment on above:Performed By: #### CBC ####[facility] Dvhwygarqg775[address] [place], [place] [address]Dr.Airam ChangRBC3.03 106/ulCritically low4.20-5.40The [facility] HospitalComment on above:Performed By: #### CBC ####[facility] Ltrkmabluq216[address] [place], [place] [address]Dr.Selenalan ChangWBC5.5 103/ul Normal4.0-11.0The [facility] HospitalComment on above:Performed By: #### CBC ####[facility] Hajwqeeetm[address] [place], [place] [address]Dr. Yilan ChangPROF 14(COMP METB)on 53-50-2891Fimzflj [Mass/Vol]2.7 g/dLCritically low3.4-5.0The [facility] HospitalComment on above:Performed By: #### CMP ####[facility] Rpvugtexml546[address] [place], [place] [address]Dr. Yilan ChangAlbumin/Globulin [Mass ratio]0.9 {ratio}NormalThe [facility] Comment on above:Performed By: #### CMP ####[facility] Kntvshorzs9089[address] [place], [place] [address]Dr.Yilan ChangALP [Catalytic activity/Vol] 113 U/SDwuamf78-224Gtt [facility] HospitalComment on above:Performed By: #### CMP ####[facility] Iudnbdpiyb450[address] [place], [place] [address]Dr. Yilan ChangALT [Catalytic activity/Vol]20 U/AXamtpc39-91Fcz [facility] Comment on above:Performed By: #### CMP ####[facility] Fasnsuszvz827[address] [place], [place] [address]Dr.Yilan ChangAnion gap [Moles/Vol]11.1 mmol/LNormalThe [facility] HospitalComment on above:Performed By: #### CMP ####[facility] Xghupodmlc144[address] [place], [place] [address]Dr. Yilan ChangAST [Catalytic activity/Vol]19 U/IJgamhc92-38Bsj [facility] Comment on above:Performed By: #### CMP ####[facility] Cglkewfrpz340[address] [place], [place] [address]Dr.Yilan ChangBilirubin [Mass/Vol]0.2 mg/dL Normal0.2-1.0The [facility] HospitalComment on above:Performed By: #### CMP ####[facility] Pbndrmznwk788204 [address] [place], [place] [address]Dr. Yilan ChangCalcium [Mass/Vol]8.3 mg/dLCritically low8.5-10.1The [facility] HospitalComment on above:Performed By: #### CMP ####[facility] Rjigqxjfgs[address] [place] [id number].Yilan ChangChloride [Moles/Vol]104 mmol/LMturac20-815Rex [facility] HospitalComment on above:Performed By: #### CMP ####[facility] Zpsqouivkv706[address] [place], [place] [address]Dr.Yilan ChangCO2 [Moles/Vol]25.3 mmol/KLmwyle67.0-32.0The [facility] HospitalComment on above:Performed By: #### CMP ####[facility] Lhpogcdcaf388[address] [place], [place] [address]Dr.Yilan ChangCreatinine [Mass/Vol]1.33 mg/dLCritically high0.55-1.02The [facility] HospitalComment on above:Performed By: #### CMP ####[facility] Sryhfqqvei368[address] [place], [place] [address]Dr.Yilan ChangEGFR-AF YTRILVTK38 mL/min/1.73m2 Critically low>=60The [facility] HospitalComment on above:Performed By: #### CMP ####[facility] Mguxnseijb559[address] [place], [place] [address]Dr. Yilan ChangEGFR-NON AF ILWXFHQF58 mL/min/1.28t1Dntajtypvm low>=60The [facility] HospitalComment on above:Performed By: #### CMP ####[facility] Minswkynby301[address] [place], [place] [address]Dr.Yilan ChangGlobulin (S) [Mass/Vol]3.1 g/dLNormalThe [facility] HospitalComment on above:Performed By: #### CMP ####[facility] Ruzhhvdbsf738[address] [place], [place] [address]Dr.Yilan ChangGlucose [Mass/Vol]88 mg/gGUcabwe25-870Opp [facility] Comment on above:Performed By: #### CMP ####[facility] Vooslcfjjk9409[address] [place], [place] [address]Dr.Yilan ChangPotassium [Moles/Vol]5.4 mmol/LCritically high3.5-5.1The [facility] HospitalComment on above:Performed By: #### CMP ####[facility] Oogpdlnzcq364[address] [place] [address]Dr.Yilan ChangProtein [Mass/Vol]5.8 g/dLCritically low6.4-8.2The [facility] HospitalComment on above:Performed By: #### CMP ####[facility] Crctxsarri9925[address] [place], [place] [address]Dr.Yilan ChangSodium [Moles/Vol]135 mmol/LCritically vgi507-747Wry [facility] HospitalComment on above: Performed By: #### CMP ####[facility] Vefadyrbyl20[address] [place], [place] [address]Dr.Yilan ChangUrea nitrogen [Mass/Vol]38.0 mg/dL Critically high7.0-18.0The [facility] HospitalComment on above:Performed By: #### CMP ####[facility] Vifuqfghmc178[address] [place], [place] [address]Dr. Yilan ChangUrea nitrogen/Creatinine [Mass ratio]28.6 mg/mgNormalThe [facility] HospitalComment on above:Performed By: #### CMP ####[facility] Iwjlwnktif266[address] [place], [place] [address]Dr.Selenalan ChangOSMOLALITYon 90-11-8432Epikewjjrz [Osmolality]284 mosm/prFtlicb023-416Bhc [facility] Comment on above:Performed By: #### OSMO ####[facility] Sdjdolaayg468[address] [place], [place] [address]Dr. Selenalan ChangCBC AUTO DIFFon 04-14-2022 BASO #0.0 103/ulNormal0.0-0.1The [facility] HospitalComment on above:Performed By: #### CBC ####[facility] Zrzddxdtbl19[address] [place], [place] [address]Dr.Yilan ChangBasophils/100 WBC (Bld)0.5 %Normal0.2-2.0The [facility] HospitalComment on above:Performed By: #### CBC ####[facility] Pxvinfkbht108[address] [place], [place] [address]Dr.Yilan ChangEO #0.3 103/ul Normal0.0-0.7The [facility] HospitalComment on above:Performed By: #### CBC ####[facility] Ujwdltaxsm778[address] [place], [place] [address]Dr. Yilan ChangEosinophils/100 WBC (Bld)3.6 %Normal0.9-7.0The [facility] Comment on above:Performed By: #### CBC ####[facility] Wqkspykode3569[address] [place], [place] [address]Dr.Yilan ChangErythrocyte distribution width (RBC) [Ratio]13.4 %Gmhghb14.0-15.0The [facility] HospitalComment on above: Performed By: #### CBC ####[facility] Ufnicietfz117[address] [place], [place] [address]Dr.Yilan ChangHematocrit (Bld) [Volume fraction]30.6 % Critically low36.0-48.0The [facility] HospitalComment on above:Performed By: #### CBC ####[facility] Pihqhuhnpt067[address] [place], [place] [address]Dr. Airam ChangHemoglobin (Bld) [Mass/Vol]9.7 g/dLCritically low12.0-16.0The [facility] HospitalComment on above:Performed By: #### CBC ####[facility] Potumcsrau228[address] [place], [place] [address]Dr.Yilan ChangIG #0.08 10e3/ulCritically high0.00-0.03The [facility] HospitalComment on above:Performed By: #### CBC ####[facility] Uesmwrolmw496[address] [place], [place] [address]Dr.Yilan ChangIG %0.9 %Critically high0.0-0.5The [facility]Comment on above:Performed By: #### CBC ####[facility] Mfmyfrnlxf358[address] [place], [place] [address]Dr.Yilan ChangLYMPH #2.1 103/ulNormal1.2-3.8The [facility] HospitalComment on above:Performed By: #### CBC ####[facility] Skgxhsmfej6[address] [place] [address]Dr.Airam TripathiLymphocytes/100 WBC (Bld)24.2 %Oowikg93.5-60.0The [facility] HospitalComment on above:Performed By: #### CBC ####[facility] Zlsivtzhku017[address] [place], [place] [address]Dr.Airam TripathiMANUAL DIFF REQNONormalThe [facility] HospitalComment on above:Performed By: #### CBC ####[facility] Igcfrbzife511[address] [place], [place] [address]Dr.Airam TripathiH (RBC) [Entitic mass]30.4 pgNormal 26.7-34.0The [facility] HospitalComment on above:Performed By: #### CBC ####[facility] Jnmwkjqklf[address] [place], [place] [address]Dr. Airam TripathiHC (RBC) [Mass/Vol]31.7 g/wFIumpgo59.9-35.2The [facility] Comment on above:Performed By: #### CBC ####[facility] Nbglrgcqnm499[address] [place], [place] [address]Dr.Airam TripathiMCV (RBC) [Entitic vol]95.9 fL Stpdyx39.0-99.0The [facility] HospitalComment on above:Performed By: #### CBC ####[facility] Rsofqdkhfq429[address] [place], [place] [address]Dr. Airam TripathiMONO #0.5 103/ulNormal0.3-0.8The [facility] HospitalComment on above: Performed By: #### CBC ####[facility] Erwueshzuk[address] [place], [place] [address]Dr.Airam ChangMonocytes/100 WBC (Bld)6.0 %Normal 1.7-12.0The [facility] HospitalComment on above:Performed By: #### CBC ####[facility] Kgucskpemq558[address] [place], [place] [address]Dr. Airam TripathiNEUT #5.6 103/ulNormal1.4-6.5The [facility] HospitalComment on above: Performed By: #### CBC ####[facility] Fgaprryejy32[address] [place] [address]Dr.Airam TripathiNeutrophils/100 WBC (Bld)64.8 %Normal 43.0-75.0The [facility] HospitalComment on above:Performed By: #### CBC ####[facility] Peaiknxwqs34[address] [place] [address]Dr. Selenaneil DeucePlatelet mean volume (Bld) [Entitic vol]9.2 fLCritically low9.5-13.[address] [facility] HospitalComment on above:Performed By: #### CBC ####[facility] Znxtbbzdyr[address] [place], [place] [address]Dr.Airam TripathiPLT296 103/pwDbyjdv665-766Fzw [facility] HospitalComment on above:Performed By: #### CBC ####[facility] Pffzglohma[address] [place], [place] [address]Dr. Airam TripathiRBC3.19 106/ulCritically low4.20-5.40The [facility] HospitalComment on above:Performed By: #### CBC ####[facility] Konazbemck[address] [place], [place] [address]Dr.Airam TrpiathiWBC8.6 103/ulNormal4.0-11.0The [facility] HospitalComment on above:Performed By: #### CBC ####[facility] Pqtizdjxwa[address] [place], [place] [address]Dr.Airam TripathiPROF 14(COMP METB)on 74-84-3431Wbxlfio [Mass/Vol]3.2 g/dLCritically low3.4-5.0The [facility] HospitalComment on above:Performed By: #### CMP ####[facility] Fsaqlshnfn[address] [place], [place] [address]Dr.Airam Tripathi Albumin/Globulin [Mass ratio]1.0 {ratio}NormalThe [facility] HospitalCommclaren flint on above:Performed By: #### CMP ####[facility] Pbeixkhxyy70[address] [place], [place] [address]Dr.Airam TripathiALP [Catalytic activity/Vol]126 U/L Critically czts75-257Wos [facility] HospitalComment on above:Performed By: #### CMP ####[facility] Resfogetfg[address] [place] [id number]. Yilan ChangALT [Catalytic activity/Vol]27 U/VVmvrus61-55Nst [facility] Comment on above:Performed By: #### CMP ####[facility] Ymgqlivdpo30[address] [place] [id number].Yilan ChangAnion gap [Moles/Vol]9.6 mmol/LNormalThe [facility] HospitalComment on above:Performed By: #### CMP ####[facility] Txxtdcdvvv[address] [place] [address]Dr. Yilan ChangAST [Catalytic activity/Vol]25 U/HBlreeq41-50Bjk [facility] Comment on above:Performed By: #### CMP ####[facility] Cbvcjakdey[address] [place] [address]Dr.Yilan ChangBilirubin [Mass/Vol]0.3 mg/dL Normal0.2-1.0The [facility] HospitalComment on above:Performed By: #### CMP ####[facility] Vrcujxestp[address] [place], [place] [address]Dr. Yilan ChangCalcium [Mass/Vol]8.1 mg/dLCritically low8.5-10.1The [facility] HospitalComment on above:Performed By: #### CMP ####[facility] Vhpdvhxbhq35[address] [place] [address]Dr.Yilan ChangChloride [Moles/Vol]100 mmol/KLtnzss06-542Pyj [facility] HospitalComment on above:Performed By: #### CMP ####[facility] Ijewdmzvsa6[address] [place] [id number].Yilan ChangCO2 [Moles/Vol]26.5 mmol/FJkthfy11.0-32.0The [facility] HospitalComment on above:Performed By: #### CMP ####[facility] Axsqlivvej69[address] [place] [address]Dr.Yilan ChangCreatinine [Mass/Vol]1.52 mg/dLCritically high0.55-1.02The [facility] HospitalComment on above:Performed By: #### CMP ####[facility] Vjuecwrxug76[address] [place] [address]Dr.Yilan ChangEGFR-AF GXLIPHID53 mL/min/1.73m2 Critically low>=60The [facility] HospitalComment on above:Performed By: #### CMP ####[facility] Qucytsxoum[address] [place], [place] [address]Dr. Yilan ChangEGFR-NON AF XZMFGXCM41 mL/min/1.50l7Ahwnudjknk low>=60The [facility] HospitalComment on above:Performed By: #### CMP ####[facility] Myiehuqexf[address] [place], [place] [address]Dr.Yilan ChangGlobulin (S) [Mass/Vol]3.3 g/dLNormalThe [facility] HospitalComment on above:Performed By: #### CMP ####[facility] Ngsjhoxrsf[address] [place], [place] [address]Dr.Yilan ChangGlucose [Mass/Vol]75 mg/dVBxkdiq69-270Bne [facility] Comment on above:Performed By: #### CMP ####[facility] Yyqqsvylah204[address] [place], [place] [address]Dr.Yilan ChangPotassium [Moles/Vol]4.1 mmol/LNormal3.5-5.1The [facility] HospitalComment on above:Performed By: #### CMP ####[facility] Acdjqlyviu[address] [place], [place] [address]Dr. Yilan ChangProtein [Mass/Vol]6.5 g/dLNormal6.4-8.2The [facility] HospitalComment on above:Performed By: #### CMP ####[facility] Itgxltewzu014[address] [place], [place] [address]Dr.Yilan ChangSodium [Moles/Vol]132 mmol/LCritically bwg018-410Wqn [facility] HospitalComment on above:Performed By: #### CMP ####[facility] Twajytjyzr96[address] [place], [place] [address]Dr. Yilan ChangUrea nitrogen [Mass/Vol]40.0 mg/dLCritically high7.0-18.0The [facility] HospitalComment on above:Performed By: #### CMP ####[facility] Ijsmokkffg[address] [place], [place] [address]Dr.Selenaneil DeuceUrea nitrogen/Creatinine [Mass ratio]26.3 mg/mgNormalThe [facility] HospitalComment on above:Performed By: #### CMP ####[facility] Ktjbxlulxw275[address] [place], [place] [address]Dr.Airam TripathiOSMOLALITYon 87-81-3102Jhlcuioiao [Osmolality]280 mosm/hiFqwyki805-400Rim [facility] HospitalComment on above: Performed By: #### OSMO ####[facility] Oqivwtflks[address] [place], [place] [address]Dr. Selenaneil DeucePTH INTACTon 86-27-1497VAT, Ipztzs92 pg/mLCritically suur22-28Kiz [facility] HospitalComment on above:Performed By: #### PTHINT ####[facility] Zvbftqnmhg[address] [place], [place] [address]Dr. Airam DeuceCBC W MANUAL DIFFon 32-67-1445DHHQZLYX LYMPH #NormalThe [facility] HospitalComment on above:Performed By: #### CBCMAN ####[facility] Inxlghygjh312[address] [place], [place] [address]Dr. Selenaneil Tripathi ATYPICAL LYMPH %NormalThe [facility] HospitalComment on above:Performed By: #### CBCMAN ####[facility] Aqctzvaelk17[address] [place], [place] [address]Dr. Airam TripathiBAND #Normal0.0-0.3The [facility] HospitalComment on above: Performed By: #### CBCMAN ####[facility] Uignxfxqpu178[address] [place], [place] [address]Dr. Airam TripathiBAND %Normal0-5The [facility] on above:Performed By: #### CBCMAN ####[facility] Xlburzsvit9[address] [place], [place] [address]Dr. Airam TripathiBASOM #0.00 103/ulNormal 0.00-0.10The [facility] HospitalComment on above:Performed By: #### CBCMAN ####[facility] Eqtrtskzkj7[address] [place] [address]Dr. Yilan ChangBASOM %0.0 %Critically low0.2-2.0The [facility] HospitalComment on above:Performed By: #### CBCGERALDNIE ####[facility] Ivuvkzdsdf24[address] [place] [address]Dr. Yilan ChangBLAST #NormalThe [facility] Comment on above:Performed By: #### CBCGERALDINE ####[facility] Czrpvpxuxv480[address] [place] [address]Dr. Yilan ChangBLAST %NormalThe [facility] HospitalComment on above:Performed By: #### CBCGERALDINE ####[facility] Rmrlilprwq110[address] [place], [place] [address]Dr. Yilan ChangCORRECTED WBC Normal4.0-11.0[facility] SystemComment on above:Performed By: #### CBCGERALDINE ####[facility] Izpeuubzoq914[address] [place], [place] [address]Dr. Yilan ChangEOS #0.00 103/ulNormal0.00-0.70The [facility] HospitalComment on above: Performed By: #### CBCGERALDINE ####[facility] Utuyvhxojw89350[address] [place], [place] [address]Dr. Yilan ChangEOS%0.0 %Critically low0.9-7.0The [facility] HospitalComment on above:Performed By: #### CBCGERALDINE ####[facility] Hugqchlqxx3135[address] [place], [place] [address]Dr. Yilan ChangHCT 29.7 %Critically low36.0-48.0The [facility] HospitalComment on above:Performed By: #### CBCGERALDINE ####[facility] Yqrgceddfh9[address] [place], [place] [address]Dr. Yilan ChangHGB9.5 g/dlCritically low12.0-16.0The [facility] Comment on above:Performed By: #### CBCGERALDINE ####[facility] Frkfinnusb16[address] [place], [place] [address]Dr. Yilan ChangLYMPHM #0.42 103/ulCritically low1.20-3.80The [facility] HospitalComment on above:Performed By: #### CBCGERALDINE ####[facility] Filaffrhuc23[address] [place] [address]Dr. Airam TripathiLYMPHM%7.0 %Critically low20.5-60.0The [facility] HospitalComment on above:Performed By: #### CBCGERALDINE ####[facility] Sipndqgihi183[address] [place], [place] [address]Dr. Airam TripathiMCH30.9 kaTvsoiv42.7-34.0The [facility] HospitalComment on above:Performed By: #### CBCGERALDINE ####[facility] Ojwjzgwzmr30[address] [place], [place] [address]Dr. Airam TripathiMCHC32.0 g/dl Scsinv95.9-35.2The [facility] HospitalComment on above:Performed By: #### CBCGERALDINE ####[facility] Ckbmdskmkm753[address] [place], [place] [address]Dr. Airam TripathiMCV96.7 xVYskdhw92.0-99.0The [facility] HospitalComment on above: Performed By: #### CBCGERALDINE ####[facility] Humduivuax392[address] [place], [place] [address]Dr. Airam ChangMETAMYELOCYTE #NormalThe [facility] HospitalCommclaren flint on above:Performed By: #### CBCMAN ####[facility] Tgqqgwaajs327[address] [place], [place] [address]Dr. Airam ChangMETAMYELOCYTE %NormalThe [facility] HospitalComment on above:Performed By: #### CBCMAN ####[facility] Yeysjziatt22[address] [place], [place] [address]Dr. Airam TripathiMONOM#0.36 103/ulNormal0.30-0.80The [facility] HospitalComment on above:Performed By: #### CBCMAN ####[facility] Kvqznzegeq977[address] [place], [place] [address]Dr. Airam TripathiMONOM%6.0 %Normal1.7-12.0The [facility] HospitalComment on above:Performed By: #### CBCGERALDINE ####[facility] Rrtrvedjgf0295 [place] [address]Dr. Yilan ChangMPV9.5 fL Normal9.5-13.5The [facility] HospitalComment on above:Performed By: #### CBCGERALDINE ####[facility] Kiooolvwem8033 [place] [address]Dr. Yilan ChangMYELOCYTE #NormalThe [facility] HospitalComment on above:Performed By: #### CBCGERALDINE ####[facility] Nybogkpxps17[address] [place] [address]Dr. Yilan ChangMYELOCYTE %NormalThe [facility] HospitalComment on above: Performed By: #### CBCGERALDINE ####[facility] Lxhocpmdpm7814 [place] [address]Dr. Yilan ChangNRBCNormalThe [facility] HospitalComment on above:Performed By: #### CBCGERALDINE ####[facility] Grdpennoxn[address] [place], [place] [address]Dr. Yilan QhapnFCR855 103/nbCvwxvn309-473Nst [facility] HospitalComment on above:Performed By: #### CBCGERALDINE ####[facility] Ebpuiiixis822[address] [place], [place] [address]Dr. Selenalan ChangRBC 3.07 106/ulCritically low4.20-5.40The [facility] HospitalComment on above: Performed By: #### CBCGERALDINE ####[facility] Bzibjxmmdy[address] [place], [place] [address]Dr. Yilan ZctzxLFD85.6 %Mxlvhg56.0-15.0The [facility] HospitalComment on above:Performed By: #### CBCGERALDINE ####[facility] Ljnspxuhxz6414[address] [place], [place] [address]Dr. Yilan ChangSEG #5.22 103/ulNormal1.40-6.50The [facility] HospitalComment on above:Performed By: #### CBCGERALDINE ####[facility] Hknbympymi94[address] [place], [place] [address]Dr. Yilan ChangSEG %87.0 %Critically high43.0-75.0The [facility] Comment on above:Performed By: #### CBCMAN ####[facility] Azbudourzp1321 [place], [place] [address]Id. Yilan ChangWBC6.0 103/ulNormal4.0-11.[address] [facility] HospitalComment on above:Performed By: #### CBCMAN ####[facility] Wajgqxkkwm85[address] [place] [address]Dr. Yilan ChangFREE THYROXINE INDEX T7on 93-39-1017QYW9.10Zvoveb3.30-4.50The [facility] Comment on above:Performed By: #### T7, TSH, CMP ####[facility] Qeqhinhszy6[address] [place], [place] [address]Dr. Selenaneil UoibjN1N17.0 %Normal 30.0-39.0The [facility] HospitalComment on above:Performed By: #### T7, TSH, CMP ####[facility] Dmycltirrf[address] [place], [place] [address]Dr. Airam ChangT4 [Mass/Vol]4.90 ug/dLNormal4.80-13.90The [facility] HospitalComment on above:Performed By: #### T7, TSH, CMP ####[facility] Hwdcredtcf5906 [place], [place]Dr. Yilan ChangPROF 14(COMP METB)on 65-16-5593Auzljwj [Mass/Vol]3.0 g/dLCritically low3.4-5.0The [facility] Comment on above:Performed By: #### T7, TSH, CMP ####[facility] Msmsjicdgn0724 [place], [place]Dr. Airam Tripathi Albumin/Globulin [Mass ratio]1.0 {ratio}NormalThe [facility] HospitalComment on above:Performed By: #### T7, TSH, CMP ####[facility] Bsjmpnxgaz8503 [place], [place]Dr. Airam ChangALP [Catalytic activity/Vol]106 U/L Dhlqyo55-786Toc [facility] HospitalComment on above:Performed By: #### T7, TSH, CMP ####[facility] Mfzmgntaaz27[address] [place] [id number]. Yilan ChangALT [Catalytic activity/Vol]20 U/LObqjhk77-63Fbz [facility] Comment on above:Performed By: #### T7, TSH, CMP ####[facility] Ijfoirgois7345 [place] [id number]. Yilan ChangAnion gap [Moles/Vol]10.8 mmol/LNormalThe [facility] HospitalComment on above:Performed By: #### T7, TSH, CMP ####[facility] Jxheipwfju6710 [place] [address]Dr. Yilan ChangAST [Catalytic activity/Vol]19 U/KVhxtwn49-14Fzx [facility] HospitalComment on above:Performed By: #### T7, TSH, CMP ####[facility] Opblqtfjyg[address] [place], [place] [address]Dr. Yilan Tripathi Bilirubin [Mass/Vol]0.3 mg/dLNormal0.2-1.0The [facility] HospitalComment on above: Performed By: #### T7, TSH, CMP ####[facility] Mvqdtlbher9[address] [place], [place] [address]Dr. Yilan ChangCalcium [Mass/Vol]8.0 mg/dLCritically low8.5-10.1The [facility] HospitalComment on above:Performed By: #### T7, TSH, CMP ####[facility] Ljdgsckycf[address] [place], [place] [address]Dr. Yilan ChangChloride [Moles/Vol]100 mmol/TKskepq37-235Zcm [facility] Comment on above:Performed By: #### T7, TSH, CMP ####[facility] Ynplemqkss218[address] [place], [place] [address]Dr. Yilan ChangCO2 [Moles/Vol] 24.3 mmol/JTrwake40.0-32.0The [facility] HospitalComment on above:Performed By: #### T7, TSH, CMP ####[facility] Tjuvudikvj7[address] [place], [place] [address]Dr. Yilan ChangCreatinine [Mass/Vol]1.12 mg/dLCritically high0.55-1.[address] [facility] HospitalComment on above:Performed By: #### T7, TSH, CMP ####[facility] Eafqfwnjgt2080 [place], [place]Dr. Yilan ChangEGFR-AF PJLLCAAY56 mL/min/1.03e9Ylepou>=60The [facility] Comment on above:Performed By: #### T7, TSH, CMP ####[facility] Orihzwepai59[address] [place], [place] [address]Dr. Yilan ChangEGFR-NON AF GVCXCZDC32 mL/min/1.90l9Lytjniqhbn low>=60The [facility] HospitalComment on above: Performed By: #### T7, TSH, CMP ####[facility] Eviwbureru9099[address] [place], [place] [address]Dr. Airam ChangGlobulin (S) [Mass/Vol]3.0 g/dLNormalThe [facility] HospitalComment on above:Performed By: #### T7, TSH, CMP ####[facility] Kokafrcpez[address] [place], [place] [address]Dr. Airam Tripathi Glucose [Mass/Vol]76 mg/aJRuwakn71-050Mxl [facility] HospitalComment on above: Performed By: #### T7, TSH, CMP ####[facility] Zsisyhqmje20[address] [place], [place] [address]Dr. Airam ChangPotassium [Moles/Vol]4.1 mmol/LNormal 3.5-5.1The [facility] HospitalComment on above:Performed By: #### T7, TSH, CMP ####[facility] Ngslgnagzl[address] [place], [place] [address]Dr. Yilan ChangProtein [Mass/Vol]6.0 g/dLCritically low6.4-8.2The [facility] Comment on above:Performed By: #### T7, TSH, CMP ####[facility] Oitzigqcxu17[address] [place], [place] [address]Dr. Yilan ChangSodium [Moles/Vol]131 mmol/LCritically iab837-816Mfp [facility] HospitalComment on above: Performed By: #### T7, TSH, CMP ####[facility] Yoznnohwfk[address] [place], [place] [address]Dr. Selenalan ChangUrea nitrogen [Mass/Vol]32.0 mg/dL Critically high7.0-18.0The [facility] HospitalComment on above:Performed By: #### T7, TSH, CMP ####[facility] Xlcgovlvzq905[address] [place], [place] [address]Dr. Yilan ChangUrea nitrogen/Creatinine [Mass ratio]28.6 mg/mgNormalThe [facility] HospitalComment on above:Performed By: #### T7, TSH, CMP ####[facility] Pwiefvpvwr[address] [place], [place] [address]Dr. Airam ChangTSHon 63-15-1613DBK9.027 uIU/mLCritically low0.358-3.740[facility] SystemComment on above:Performed By: #### T7, TSH, CMP ####[facility] Jayshavugz[address] [place], [place] [address]Dr. Airam TripathiUA RANDOMon 04-08-2022 Bilirubin Ql (U)NegativeNormalNEGATIVEMemorial Health SystemComment on above: Performed By: #### UA ####[facility] Fgxxrcwlkh[address] [place], [place] [address]Dr. Yilan ChangClarity (U)CLEARNormalCLEARMain Campus Medical Center HospitalComment on above:Performed By: #### UA ####[facility] Wwpkjqkbpu405[address] [place], [place] [address]Dr. Selenalan ChangColor (U)LT. YELLOWNormalYELLOWMemorial Health SystemComment on above:Performed By: #### UA ####[facility] Trulgvxzqx417[address] [place], [place] [address]Dr. Y grayson ChangGlucose Ql (U)NegativeNormalNEGATIVEMemorial Health SystemComment on above:Performed By: #### UA ####[facility] Hjdtxwhzrd[address] [place], [place] [address]Dr. Yilan ChangHemoglobin Ql (U)NegativeNormalNEGATIVE The [facility] HospitalComment on above:Performed By: #### UA ####[facility] Mmgbrlmdhr35[address] [place] [address]Dr. Airam Tripathi Ketones Ql (U)NegativeNormalNEGATIVEThe [facility] HospitalComment on above: Performed By: #### UA ####[facility] Nixnkyssbf654[address] [place], [place] [address]Dr. Selenaneil ChangLEUKOCYTESNegativeNormalNEGATIVEThe [facility] HospitalComment on above:Performed By: #### UA ####[facility] Pezuhxwxbn817[address] [place], [place] [address]Dr. Selenaneil ChangNitrite Ql (U) NegativeNormalNEGATIVEThe [facility] HospitalComment on above:Performed By: #### UA ####[facility] Itdmntlcor564[address] [place], [place] [address]Dr. Airam ChangpH (U)6.0 [pH]Normal5-9The [facility] HospitalComment on above: Performed By: #### UA ####[facility] Iqipeznjey[address] [place], [place] [address]Dr. Airam TripathiSPEC GRAVITY1.991Ydnbqb0.005-<=1.025The [facility] HospitalComment on above:Performed By: #### UA ####[facility] Oniikizhnw[address] [place], [place] [address]Dr. Airam TripathiUA PROTEIN NegativeNormalNEGATIVE/ TRACEThe [facility] HospitalComment on above:Performed By: #### UA ####[facility] Vdrnsyykgm550[address] [place], [place] [address]Dr. Airam ChangUrobilinogen Qn (U)0.2 {Ligia'U}/dLNormal0.2 - 1.0The [facility] HospitalComment on above:Performed By: #### UA ####[facility] Umzbvnsury[address] [place], [place] [address]Dr. Airam TripathiURINE T PROTEIN CREAT RATIOon 62-85-2825SO PROT CREAT RAT0.32NormalThe [facility] Comment on above:Performed By: #### URTPCR ####[facility] Xfmtpbnhfl[address] [place] [address]Dr. Selenaneil DeuceUR TOTAL PROTEIN<6.0Normal <=12.0The [facility] HospitalComment on above:Performed By: #### URTPCR ####[facility] Zhmimnjhro30[address] [place] [address]Dr. Selenaneil DeuceURINE CREAT18.75 mg/dLCritically low20.00-300.00The [facility] Comment on above:Performed By: #### URTPCR ####[facility] Gnlzbuebvz99[address] [place] [address]Dr. Airam TripathiFERRITINon 18-78-2923Lqfycylv [Mass/Vol]99.0 ng/mLNormal8.0-252.0The [facility] HospitalComment on above: Performed By: #### FETWALDO VALADEZ, FERR ####[facility] Nevdscfmfc3[address] [place], [place] [address]Dr. Airam TripathiIRON AND TIBCon 04-06-2022% OUILMJGAVM05.4 %NormalThe [facility] HospitalComment on above:Performed By: #### FETLEONARDCMUNIRAAD, FERR ####[facility] Wryblfcrxr[address] [place], [place] [address]Dr. Airam ChangIron [Mass/Vol]43.0 ug/dLCritically low 50.0-170.0The [facility] HospitalComment on above:Performed By: #### FETIBC, VITAD, FERR ####[facility] Tbitrqochw38[address] [place], [place] [address]Dr. Airam TripathiTIBC UCPKLF132.0 ug/pTFvivss860.0-450.0The [facility] Comment on above:Performed By: #### FETIBC, VITAD, FERR ####[facility] Ouzygypnhr7[address] [place], [place] [address]Dr. Airam ChangPROF 14(COMP METB)on 95-40-0733Ytftumj [Mass/Vol]3.2 g/dLCritically low3.4-5.0The [facility] HospitalComment on above:Performed By: #### CMP, URIC ####[facility] Cudxmwbejw5[address] [place] [id number]. Airam Deuce Albumin/Globulin [Mass ratio]1.0 {ratio}NormalThe [facility] HospitalCommclaren flint on above:Performed By: #### CMP, URIC ####[facility] Jngjoepmtq23[address] [place] [address]Dr. Airam TripathiALP [Catalytic activity/Vol]118 U/LCritically kycr56-834Bbv [facility] HospitalComment on above:Performed By: #### CMP, URIC ####[facility] Byhraxgazz6072 [place] [id number]. Airam TripathiALT [Catalytic activity/Vol]24 U/UZokssf41-67Zzv [facility] on above:Performed By: #### CMP, URIC ####[facility] Jaiknoznfs4209 [place] [address]Dr. Airam ChangAnion gap [Moles/Vol]14.4 mmol/LNormalThe [facility] HospitalComment on above:Performed By: #### CMP, URIC ####[facility] Vfauiicuzu59[address] [place] [address]Dr. Airam ChangAST [Catalytic activity/Vol]21 U/AOsmekv76-07Wts [facility] on above:Performed By: #### CMP, URIC ####[facility] Zzebfkpuwm14[address] [place] [address]Dr. Airam Tripathi Bilirubin [Mass/Vol]0.3 mg/dLNormal0.2-1.0The [facility] Centerment on above: Performed By: #### CMP, URIC ####[facility] Ykzvnvxzcy9067 [place] [id number]. Airam TripathiCalcium [Mass/Vol]8.0 mg/dLCritically low8.5-10.1The [facility] Centerment on above:Performed By: #### CMP, URIC ####[facility] Fqbhorvzbm18[address] [place] [address]Dr. Airam ChangChloride [Moles/Vol]98 mmol/COnkkfi48-411Wzp [facility] HospitalComment on above:Performed By: #### CMP, URIC ####[facility] Gsctdqtthn[address] [place], [place] [address]Dr. Yilan ChangCO2 [Moles/Vol]22.0 mmol/LNormal 21.0-32.0The [facility] HospitalComment on above:Performed By: #### CMP, URIC ####[facility] Hyfnabqvbu[address] [place], [place] [address]Dr. Yilan ChangCreatinine [Mass/Vol]1.86 mg/dLCritically high0.55-1.02The [facility] HospitalComment on above:Performed By: #### CMP, URIC ####[facility] Teiuragrhf94[address] [place], [place] [address]Dr. Yilan ChangEGFR-AF USHNGEJE67 mL/min/1.77d6Ycxqreaaaf low>=60The [facility] HospitalComment on above: Performed By: #### CMP, URIC ####[facility] Dnjrbvinks6[address] [place], [place] [address]Dr. Yilan ChangEGFR-NON AF NPSWVAVM43 mL/min/1.73m2 Critically low>=60The [facility] HospitalComment on above:Performed By: #### CMP, URIC ####[facility] [address]gmyebyvfk[address] [place], [place] [address]Dr. Yilan ChangGlobulin (S) [Mass/Vol]3.1 g/dLNoCleveland Clinic Fairview Hospital Comment on above:Performed By: #### CMP, URIC ####[facility] Anbxpfsurf[address] [place], [place] [address]Dr. Yilan ChangGlucose [Mass/Vol]93 mg/qALfncwf24-771Iol [facility] HospitalComment on above:Performed By: #### CMP, URIC ####[facility] [address]khgzk[address] [place], [place] [address]Dr. Yilan ChangPotassium [Moles/Vol]4.4 mmol/LNormal 3.5-5.1The [facility] HospitalComment on above:Performed By: #### CMP, URIC ####[facility] Ixydctinzz[address] [place], [place] [address]Dr. Airam ChangProtein [Mass/Vol]6.3 g/dLCritically low6.4-8.2[facility] Comment on above:Performed By: #### CMP, URIC ####[facility] [address]oxsgmf[address] [place] [address]Dr. Yilan ChangSodium [Moles/Vol]130 mmol/LCritically voe988-542Ttf [facility] HospitalComment on above: Performed By: #### CMP, URIC ####[facility] Pihhanraas[address] [place] [address]Dr. Yilan ChangUrea nitrogen [Mass/Vol]49.0 mg/dL Critically high7.0-18.0The [facility] HospitalComment on above:Performed By: #### CMP, URIC ####[facility] Byctonmbck[address] [place] [address]Dr. Yilan ChangUrea nitrogen/Creatinine [Mass ratio]26.3 mg/mgNoCleveland Clinic Fairview HospitalComment on above:Performed By: #### CMP, URIC ####[facility] Ecyykvgevj[address] [place] [address]Dr. Yilan ChangURIC ACID SERUMon 75-27-0699Zxovt [Mass/Vol]6.5 mg/dLCritically high2.6-6.0The [facility] HospitalComment on above:Performed By: #### CMP, URIC ####[facility] [address]qkkrowl[address] [place] [address]Dr. Airam Tripathi VITAMIN D 25 OHon 68-33-4310DAF D 25-OH74.5 ng/mLNormalThe [facility] Comment on above:Performed By: #### FETIBC, VITAD, FERR ####[facility] Uyqjlczjuv[address] [place] [address]Dr. Yilan ChangVIT D RANGES SEE BELOWMarion HospitalComment on above:Result Comment: <20 ng/mL Vit D deficient 20 - <30 ng/mL Vit D insufficient 30 - 100 ng/mL Vit D sufficient >100 ng/mL Potential ToxicityPerformed By: #### FETIBC, VITAD, FERR ####[facility] Zacoghjsdz[address] [place] [address]Dr. Selenaneil ChangOSMOLALITYon 16-70-8456Kgmqnpyhca [Osmolality]284 mosm/kgNormal 275-295The [facility] HospitalComment on above:Performed By: #### OSMO ####[facility] Wiyrsjdnwl[address] [place], [place] [address]Dr. Airam TripathiCBC AUTO DIFFon 96-00-1159LLLE #0.0 103/ulNormal0.0-0.1The [facility] HospitalComment on above:Performed By: #### CBC ####[facility] Eqbmsegrdb683[address] [place], [place] [address]Dr.Airam TripathiBasophils/100 WBC (Bld)0.3 %Normal0.2-2.0The [facility] HospitalComment on above:Performed By: #### CBC ####[facility] Flekmksmhg259[address] [place], [place] [address]Dr.Airam ChangEO #0.1 103/ulNormal0.0-0.7The [facility] HospitalComment on above:Performed By: #### CBC ####[facility] Tfizigqqyy299[address] [place], [place] [address]Dr.Airam ChangEosinophils/100 WBC (Bld)2.0 %Normal 0.9-7.0The [facility] HospitalComment on above:Performed By: #### CBC ####[facility] Znlcmdcwid089[address] [place], [place] [address]Dr.Airam Tripathi Erythrocyte distribution width (RBC) [Ratio]13.5 %Jztlwf49.0-15.0The [facility] HospitalComment on above:Performed By: #### CBC ####[facility] Bhgqvqozjw[address] [place], [place] [address]Dr.Airam TripathiHematocrit (Bld) [Volume fraction]32.5 %Critically low36.0-48.0The [facility] HospitalComment on above:Performed By: #### CBC ####[facility] Nfddvoypcq[address] [place], [place] [address]Dr.Yilan ChangHemoglobin (Bld) [Mass/Vol]10.1 g/dL Critically low12.0-16.0The [facility] HospitalComment on above:Performed By: #### CBC ####[facility] Sbcbafmsfn[address] [place], [place] [address]DrKianna TripathiIG #0.03 10e3/ulNormal0.00-0.03The [facility] HospitalComment on above: Performed By: #### CBC ####[facility] Gzkwzzyfen654[address] [place], [place] [address]DrBroderick TripathiIG %0.4 %Normal0.0-0.5The [facility] HospitalComment on above:Performed By: #### CBC ####[facility] Epjfkmhcxv99[address] [place], [place] [address]Dr.Airam TripathiLYMPH #1.6 103/ulNormal1.2-3.8The [facility] HospitalComment on above:Performed By: #### CBC ####[facility] Gzvzokbqsv528[address] [place], [place] [address]Dr. Airam Tripathimphocytes/100 WBC (Bld)22.6 %Owdfmx15.5-60.0The [facility] Comment on above:Performed By: #### CBC ####[facility] Wjsplwioes[address] [place], [place] [address]Dr.Airam TripathiMANUAL DIFF REQNONormalThe [facility] HospitalComment on above:Performed By: #### CBC ####[facility] Zlnuzabhzq[address] [place], [place] [address]Dr.Airam TripathiKINGS [facility] (RBC) [Entitic mass]30.5 otYbdbfo85.7-34.0The [facility] HospitalComment on above: Performed By: #### CBC ####[facility] Lwmsytzdyz8[address] [place], [place] [address]DrBroderick TripathiNASSAU [facility] (RBC) [Mass/Vol]31.1 g/dLNormal 29.9-35.2The [facility] HospitalComment on above:Performed By: #### CBC ####[facility] Dlittpqhaq656[address] [place], [place] [address]Dr. Airam TripathiMCV (RBC) [Entitic vol]98.2 jLJqfvvr13.0-99.0The [facility] Comment on above:Performed By: #### CBC ####[facility] Dfqmllwerk[address] [place] [address]Dr.Airam TripathiMONO #0.5 103/ulNormal0.3-0.[address] [facility] HospitalComment on above:Performed By: #### CBC ####[facility] Twxjhvzaro006[address] [place], [place] [address]Dr.Airam Tripathi Monocytes/100 WBC (Bld)7.3 %Normal1.7-12.0The [facility] HospitalComment on above: Performed By: #### CBC ####[facility] Fsetsjqosv74[address] [place], [place] [address]Dr.Airam TripathiNEUT #4.7 103/ulNormal1.4-6.5The [facility] HospitalComment on above:Performed By: #### CBC ####[facility] Kshmnnikgn276[address] [place], [place] [address]Dr.Airam TripathiNeutrophils/100 WBC (Bld)67.4 %Rgoxln43.0-75.0The [facility] HospitalComment on above:Performed By: #### CBC ####[facility] Viaerwxuxk389[address] [place], [place] [address]Dr.Airam TripathiPlatelet mean volume (Bld) [Entitic vol]9.5 fLNormal9.5-13.[address] [facility] HospitalComment on above:Performed By: #### CBC ####[facility] Vxthqnplre[address] [place], [place] [address]Dr.Airam IawfzMZW943 103/myXrksed237-607Vxk [facility] HospitalComment on above:Performed By: #### CBC ####[facility] Gseefffwrd029[address] [place], [place] [address]Dr. Airam TripathiRBC3.31 106/ulCritically low4.20-5.40The [facility] HospitalComment on above:Performed By: #### CBC ####[facility] Lwxyntuspz[address] [place] [address]Dr.Airam ChangWBC7.0 103/ulNormal4.0-11.0The [facility] HospitalComment on above:Performed By: #### CBC ####[facility] Jllwidomrv[address] [place], [place] [address]Dr.Airam ChangPROF 14(COMP METB)on 36-05-6498Yndkhhh [Mass/Vol]3.4 g/dLNormal3.4-5.0The [facility] Comment on above:Performed By: #### CMP ####[facility] Ftajfonibu[address] [place], [place] [address]Dr.Airam TripathiAlbumin/Globulin [Mass ratio] 1.1 {ratio}NormalThe [facility] HospitalComment on above:Performed By: #### CMP ####[facility] Vjsqqumzsx078[address] [place], [place] [address]Dr. Airam ChangALP [Catalytic activity/Vol]107 U/JHocvyi39-750Jbf [facility] Comment on above:Performed By: #### CMP ####[facility] Adxqkkdcwc954[address] [place], [place] [address]Dr.Airam ChangALT [Catalytic activity/Vol]22 U/GEjkgic43-73Mzu [facility] HospitalComment on above:Performed By: #### CMP ####[facility] Zbvlqgeqna[address] [place], [place] [address]Dr. Airam TripathiAnion gap [Moles/Vol]6.8 mmol/LNormalThe [facility] HospitalComment on above:Performed By: #### CMP ####[facility] Tdkxubmgkw659[address] [place], [place] [address]Dr.Airam ChangAST [Catalytic activity/Vol]23 U/LNormal 15-37The [facility] HospitalComment on above:Performed By: #### CMP ####[facility] Cjtkiklndz[address] [place], [place] [address]Dr.Airam Tripathi Bilirubin [Mass/Vol]0.2 mg/dLNormal0.2-1.0The [facility] HospitalComment on above: Performed By: #### CMP ####[facility] Gtyeoduzxy[address] [place] [id number].Yilan ChangCalcium [Mass/Vol]8.4 mg/dLCritically low8.5-10.1The [facility] HospitalComment on above:Performed By: #### CMP ####[facility] Hkqrjeuetu[address] [place] [address]Dr. Yilan ChangChloride [Moles/Vol]100 mmol/BOgromg82-657Vkg [facility] Comment on above:Performed By: #### CMP ####[facility] Onmohgollv105[address] [place], [place] [address]Dr.Yilan ChangCO2 [Moles/Vol]29.9 mmol/L Jrviwk89.0-32.0The [facility] HospitalComment on above:Performed By: #### CMP ####[facility] Aigeuxrxda327[address] [place], [place] [address]Dr. Yilan ChangCreatinine [Mass/Vol]1.20 mg/dLCritically high0.55-1.02The [facility] HospitalComment on above:Performed By: #### CMP ####[facility] Rzolmizsfh75[address] [place], [place] [address]Dr.Yilan ChangEGFR-AF VVHYXXWX35 mL/min/1.33w2Bdpeswutxh low>=60The [facility] HospitalComment on above: Performed By: #### CMP ####[facility] Tjnesszozl[address] [place], [place] [address]Dr.Yilan ChangEGFR-NON AF OOUJINOT62 mL/min/1.73m2 Critically low>=60The [facility] HospitalComment on above:Performed By: #### CMP ####[facility] Qicidbviyq227[address] [place], [place] [address]Dr. Yilan ChangGlobulin (S) [Mass/Vol]3.0 g/dLNormalThe [facility] HospitalComment on above:Performed By: #### CMP ####[facility] Mgjdixhoas720[address] [place], [place] [address]Dr.Yilan ChangGlucose [Mass/Vol]57 mg/dLCritically low 74-106The [facility] HospitalComment on above:Performed By: #### CMP ####[facility] Ksguzcuyvx110[address] [place] [address]Dr.Airam Tripathi Potassium [Moles/Vol]3.7 mmol/LNormal3.5-5.1The [facility] HospitalComment on above:Performed By: #### CMP ####[facility] Raoudvdzfk[address] [place], [place] [address]Dr.Airam TripathiProtein [Mass/Vol]6.4 g/dLNormal6.4-8.[address] [facility] HospitalComment on above:Performed By: #### CMP ####[facility] Onlskddjtq274[address] [place], [place] [address]Dr.Airam TripathiSodium [Moles/Vol]133 mmol/LCritically psm432-026Qzv [facility] HospitalComment on above:Performed By: #### CMP ####[facility] Yuxbpowcdt90[address] [place], [place] [address]Dr.Airam TripathiUrea nitrogen [Mass/Vol]39.0 mg/dL Critically high7.0-18.0The [facility] HospitalComment on above:Performed By: #### CMP ####[facility] Flexkhmran097[address] [place], [place] [address]Dr. Airam ChangUrea nitrogen/Creatinine [Mass ratio]32.5 mg/mgNormalThe [facility] HospitalComment on above:Performed By: #### CMP ####[facility] Jdlpdotkkm[address] [place], [place] [address]Dr.Airam TripathiOSMOLALITYon 26-97-8448Lbbdhdpplv [Osmolality]285 mosm/phAzbixa806-118Mag [facility] Comment on above:Performed By: #### OSMO ####[facility] Xftlpgrlyp209[address] [place], [place] [address]Dr. Selenaneil DeuceCBC AUTO DIFFon 03-22-2022 BASO #0.0 103/ulNormal0.0-0.1The [facility] HospitalComment on above:Performed By: #### CBC ####[facility] Jtjcbfdfqg96[address] [place], [place] [address]Dr.Yilan ChangBasophils/100 WBC (Bld)0.4 %Normal0.2-2.0The [facility] HospitalComment on above:Performed By: #### CBC ####[facility] Uxohljluhn[address] [place] [address]Dr.Yilan ChangEO #0.2 103/ul Normal0.0-0.7The [facility] HospitalComment on above:Performed By: #### CBC ####[facility] Cjvxpckina904[address] [place], [place] [address]Dr. Yilan ChangEosinophils/100 WBC (Bld)2.3 %Normal0.9-7.0The [facility] Comment on above:Performed By: #### CBC ####[facility] Ocoabukowd38[address] [place], [place] [address]Dr.Yilan ChangErythrocyte distribution width (RBC) [Ratio]13.9 %Sqkqni89.0-15.0The [facility] HospitalComment on above: Performed By: #### CBC ####[facility] Oaitotsgud9[address] [place], [place] [address]Dr.Selenalan ChangHematocrit (Bld) [Volume fraction]32.6 % Critically low36.0-48.0The [facility] HospitalComment on above:Performed By: #### CBC ####[facility] Xckjiyxumg448[address] [place], [place] [address]Dr. Selenalan ChangHemoglobin (Bld) [Mass/Vol]10.3 g/dLCritically low12.0-16.0The [facility] HospitalComment on above:Performed By: #### CBC ####[facility] Kxwbhyvidt94[address] [place], [place] [address]Dr.Yilan ChangIG #0.11 10e3/ulCritically high0.00-0.03The [facility] HospitalComment on above:Performed By: #### CBC ####[facility] Mqsuwfttmh307[address] [place], [place] [address]Dr.Yilan ChangIG %1.4 %Critically high0.0-0.5The [facility] HospitalComment on above:Performed By: #### CBC ####[facility] Hqfsnxaaej8[address] [place] [address]Dr.Airam TripathiLYMPH #1.3 103/ulNormal1.2-3.8The [facility] HospitalComment on above:Performed By: #### CBC ####[facility] Yieoqdjcrq4[address] [place] [address]Dr.Airam TripathiLymphocytes/100 WBC (Bld)15.9 %Critically low20.5-60.0The [facility] HospitalComment on above: Performed By: #### CBC ####[facility] Skwufkjzbr[address] [place] [address]Dr.Airam TripathiMANUAL DIFF REQNONormalThe [facility] HospitalComment on above:Performed By: #### CBC ####[facility] Evrgbexddk710[address] [place], [place] [address]Dr.Airam TripathiMCH (RBC) [Entitic mass]30.7 jsEgirex20.7-34.0The [facility] HospitalComment on above: Performed By: #### CBC ####[facility] Dcmarivlfw9[address] [place], [place] [address]Dr.Airam TripathiMCHC (RBC) [Mass/Vol]31.6 g/dLNormal 29.9-35.2The [facility] HospitalComment on above:Performed By: #### CBC ####[facility] Nwbwfwmoel549[address] [place], [place] [address]Dr. Airam TripathiMCV (RBC) [Entitic vol]97.0 zSVsabjc39.0-99.0The [facility] Comment on above:Performed By: #### CBC ####[facility] Bheaptznfe044[address] [place], [place] [address]Dr.Airam TripathiMONO #0.6 103/ulNormal0.3-0.[address] [facility] HospitalComment on above:Performed By: #### CBC ####[facility] Xmzxyatbop196[address] [place], [place] [address]Dr.Airam Tripathi Monocytes/100 WBC (Bld)6.9 %Normal1.7-12.0The [facility] HospitalComment on above: Performed By: #### CBC ####[facility] Mxgtlrjhub39[address] [place] [address]Dr.Airam TripathiNEUT #5.9 103/ulNormal1.4-6.5The [facility] HospitalComment on above:Performed By: #### CBC ####[facility] Dmylsszxwh728[address] [place], [place] [address]Dr.Airam TripathiNeutrophils/100 WBC (Bld)73.1 %Fkrefs93.0-75.0The [facility] HospitalComment on above:Performed By: #### CBC ####[facility] Oznchztaaj9[address] [place], [place] [address]Dr.Airam TripathiPlatelet mean volume (Bld) [Entitic vol]9.5 fLNormal9.5-13.[address] [facility] HospitalComment on above:Performed By: #### CBC ####[facility] Yjsrhqdmur64[address] [place], [place] [address]Dr.Airam TripathiPLT313 103/yzKzyyob412-802Vxx [facility] HospitalComment on above:Performed By: #### CBC ####[facility] Lpfimfsmul[address] [place], [place] [address]Dr. Airam TripathiRBC3.36 106/ulCritically low4.20-5.40The [facility] Centerment on above:Performed By: #### CBC ####[facility] Mncjcrovnm475[address] [place], [place] [address]Dr.Airam TripathiWBC8.1 103/ulNormal4.0-11.0The [facility] HospitalComment on above:Performed By: #### CBC ####[facility] Lpgywcallq[address] [place], [place] [address]Dr.Airam TripathiPROF 14(COMP METB)on 21-40-9708Cnrezio [Mass/Vol]3.3 g/dLCritically low3.4-5.0The [facility] HospitalComment on above:Performed By: #### CMP ####[facility] Xdiwepcetf2619[address] [place], [place] [address]Dr.Yilan Tripathi Albumin/Globulin [Mass ratio]1.0 {ratio}NormalThe [facility] HospitalComment on above:Performed By: #### CMP ####[facility] Pgpzxmzkxv[address] [place] [address]Dr.Yineil ChangALP [Catalytic activity/Vol]113 U/L Lgceae22-356Cdx [facility] HospitalComment on above:Performed By: #### CMP ####[facility] Vuirbrsttb34[address] [place] [address]Dr. Yineil ChangALT [Catalytic activity/Vol]21 U/QFmhnff17-15Ijx [facility] Comment on above:Performed By: #### CMP ####[facility] Bcriopfmjl804[address] [place], [place] [address]Dr.Airam ChangAnion gap [Moles/Vol]12.2 mmol/LNormalThe [facility] HospitalComment on above:Performed By: #### CMP ####[facility] Qzbnrncxnf945[address] [place], [place] [address]Dr. Yineil ChangAST [Catalytic activity/Vol]21 U/KSzuwth52-38Gzx [facility] Comment on above:Performed By: #### CMP ####[facility] Fduyhrwzfo314[address] [place], [place] [address]Dr.Yineil ChangBilirubin [Mass/Vol]0.2 mg/dL Normal0.2-1.0The [facility] HospitalComment on above:Performed By: #### CMP ####[facility] Qonrstgnhy900[address] [place], [place] [address]Dr. Yineil ChangCalcium [Mass/Vol]8.4 mg/dLCritically low8.5-10.1The [facility] HospitalComment on above:Performed By: #### CMP ####[facility] Lprjbdligg014[address] [place], [place] [address]Dr.Yilan ChangChloride [Moles/Vol]103 mmol/WAanlvm23-922Jqw [facility] HospitalComment on above:Performed By: #### CMP ####[facility] Xwbdtolznf766[address] [place], [place] [address]Dr.Yilan ChangCO2 [Moles/Vol]24.4 mmol/GKruzwa02.0-32.0The [facility] HospitalComment on above:Performed By: #### CMP ####[facility] Jemzlygfcx20[address] [place], [place] [address]Dr.Yilan ChangCreatinine [Mass/Vol]1.11 mg/dLCritically high0.55-1.02The [facility] HospitalComment on above:Performed By: #### CMP ####[facility] Drdfordaoz78[address] [place], [place] [address]Dr.Yilan ChangEGFR-AF CUBAN>60Normal>=60The [facility] HospitalComment on above:Performed By: #### CMP ####[facility] Pznukgkjfu557[address] [place], [place] [address]Dr.Yilan ChangEGFR-NON AF RZIFRVNW85 mL/min/1.38k4Egohcarizh low>=60The [facility] HospitalCommclaren flint on above: Performed By: #### CMP ####[facility] Zzwpgsppqs8637[address] [place], [place] [address]Dr.Yilan ChangGlobulin (S) [Mass/Vol]3.2 g/dLNormalThe [facility] HospitalComment on above:Performed By: #### CMP ####[facility] Hquxvkqyrj638[address] [place], [place] [address]Dr.Yilan ChangGlucose [Mass/Vol]84 mg/gSYpaphd34-796StcMemorial Health SystemCommclaren flint on above:Performed By: #### CMP ####[facility] Fjjbvdemzv013[address] [place], [place] [address]Dr.Yilan ChangPotassium [Moles/Vol]4.6 mmol/LNormal3.5-5.1The [facility] HospitalComment on above:Performed By: #### CMP ####[facility] Nzdhjiutns[address] [place], [place] [address]Dr.Yilan ChangProtein [Mass/Vol]6.5 g/dLNormal6.4-8.2The [facility] HospitalComment on above:Performed By: #### CMP ####[facility] Wyxwzoxlvg32450[address] [place], [place] [address]Dr.Yilan ChangSodium [Moles/Vol]135 mmol/LCritically wbf618-032Mzs [facility] HospitalComment on above:Performed By: #### CMP ####[facility] Repoonkvmy90230[address] [place], [place] [address]Dr.Airam ChangUrea nitrogen [Mass/Vol]39.0 mg/dLCritically high7.0-18.0The [facility] HospitalComment on above:Performed By: #### CMP ####[facility] Knneesogmk674[address] [place], [place] [address]Dr.Selenalan ChangUrea nitrogen/Creatinine [Mass ratio] 35.1 mg/mgNormalThe [facility] HospitalComment on above:Performed By: #### CMP ####[facility] Lfdcplazif[address] [place], [place] [address]Dr. Airam ChangOSMOLALITYon 66-34-0724Auhlkopauu [Osmolality]277 mosm/kgNormal 275-295The [facility] HospitalCommclaren flint on above:Performed By: #### OSMO ####[facility] Arlvogenqx87[address] [place], [place] [address]Dr. Selenalan ChangCBC AUTO DIFFon 90-72-4857DDNZ #0.0 103/ulNormal0.0-0.1The [facility] HospitalCommclaren flint on above:Performed By: #### CBC ####[facility] Arbhajgcfl[address] [place], [place] [address]Dr.Selenalan ChangBasophils/100 WBC (Bld)0.4 %Normal0.2-2.0The [facility] HospitalCommclaren flint on above:Performed By: #### CBC ####[facility] Uhbaynapzs18[address] [place], [place] [address]Dr.Yilan ChangEO #0.1 103/ulNormal0.0-0.7The [facility] HospitalCommclaren flint on above:Performed By: #### CBC ####[facility] Hlqcfnyrke[address] [place], [place] [address]Dr.Selenalan ChangEosinophils/100 WBC (Bld)2.4 %Normal 0.9-7.0The [facility] HospitalComment on above:Performed By: #### CBC ####[facility] Mfelmlcxta[address] [place] [address]Dr.Airam Tripathi Erythrocyte distribution width (RBC) [Ratio]13.9 %Yltqis59.0-15.0The [facility] HospitalComment on above:Performed By: #### CBC ####[facility] Qmuwmjcszq[address] [place], [place] [address]Dr.Airam TripathiHematocrit (Bld) [Volume fraction]31.2 %Critically low36.0-48.0The [facility] HospitalComment on above:Performed By: #### CBC ####[facility] Bicvzwhgyq[address] [place], [place] [address]Dr.Airam TripathiHemoglobin (Bld) [Mass/Vol]9.9 g/dL Critically low12.0-16.0The [facility] HospitalComment on above:Performed By: #### CBC ####[facility] Kttattddnk[address] [place], [place] [address]Dr. Airam DeuceIG #0.03 10e3/ulNormal0.00-0.03The [facility] HospitalComment on above: Performed By: #### CBC ####[facility] Ijvcyqnrro[address] [place], [place] [address]Dr.Airam DeuceIG %0.6 %Critically high0.0-0.5The [facility] HospitalComment on above:Performed By: #### CBC ####[facility] Tujeujdqeg[address] [place], [place] [address]Dr.Airam DeuceLYMPH #1.5 103/ulNormal1.2-3.8The [facility] [facility] HospitalComment on above:Performed By: #### CBC ####[facility] Kdnzadhxik[address] [place], [place] [address]Dr. Airam DeuceLymphocytes/100 WBC (Bld)29.4 %Iwtwqs87.5-60.0The [facility] Comment on above:Performed By: #### CBC ####[facility] Jzllaoybop[address] [place], [place] [address]Dr.Airam TripathiMANUAL DIFF REQNONormalThe [facility] HospitalComment on above:Performed By: #### CBC ####[facility] Rygccsymsj[address] [place] [address]Dr.Airam TripathiH (RBC) [Entitic mass]30.5 ngHcvgja16.7-34.0The [facility] HospitalComment on above: Performed By: #### CBC ####[facility] Dbbawywgmz9[address] [place], [place] [address]Dr.Airam TripathiHC (RBC) [Mass/Vol]31.7 g/dLNormal 29.9-35.2The [facility] HospitalComment on above:Performed By: #### CBC ####[facility] Hjzgbcgzos5[address] [place], [place] [address]Dr. Airam TripathiV (RBC) [Entitic vol]96.0 yMElvtus41.0-99.0The [facility] Comment on above:Performed By: #### CBC ####[facility] Srvgkdieyp[address] [place], [place] [address]Dr.Airam TripathiMONO #0.4 103/ulNormal0.3-0.[address] [facility] HospitalComment on above:Performed By: #### CBC ####[facility] Tpmvqppejm8[address] [place], [place] [address]Dr.Airam Tripathi Monocytes/100 WBC (Bld)7.0 %Normal1.7-12.0The [facility] HospitalComment on above: Performed By: #### CBC ####[facility] Jgachdffpc224[address] [place], [place] [address]Dr.Airam TripathiNEUT #3.0 103/ulNormal1.4-6.5The [facility] HospitalComment on above:Performed By: #### CBC ####[facility] Nyhakroonf[address] [place], [place] [address]Dr.Airam TripathiNeutrophils/100 WBC (Bld)60.2 %Fivsgb03.0-75.0The [facility] HospitalComment on above:Performed By: #### CBC ####[facility] Xwkweonhxg9[address] [place], [place] [address]Dr.Airam TripathiPlatelet mean volume (Bld) [Entitic vol]9.6 fLNormal9.5-13.[address] [facility] HospitalComment on above:Performed By: #### CBC ####[facility] Zfhooocadq[address] [place] [address]Dr.Airam TripathiPLT258 103/jjPshyke198-434Hac [facility] HospitalComment on above:Performed By: #### CBC ####[facility] Mnfyevuvhk6437[address] [place], [place] [address]Dr. Airam TripathiRBC3.25 106/ulCritically low4.20-5.40The [facility] HospitalComment on above:Performed By: #### CBC ####[facility] Qourrnqtsf947[address] [place], [place] [address]Dr.Airam TripathiWBC5.0 103/ulNormal4.0-11.0The [facility] HospitalComment on above:Performed By: #### CBC ####[facility] Eeysickzyw[address] [place], [place] [address]Dr.Airam TripathiPROF 14(COMP METB)on [id number] [Mass/Vol]3.3 g/dLCritically low3.4-5.0The [facility] HospitalComment on above:Performed By: #### CMP ####[facility] Ioxlfxrkgt074[address] [place], [place] [address]Dr.Airam Tripathi Albumin/Globulin [Mass ratio]1.1 {ratio}NormalThe [facility] Charles HospitalComment on above:Performed By: #### CMP ####[facility] Zismlphbat45[address] [place], [place] [address]Dr.Airam TripathiALP [Catalytic activity/Vol]106 U/L Ozzoqu21-665Ezl [facility] HospitalComment on above:Performed By: #### CMP ####[facility] Ibmofnxfzx812[address] [place], [place] [address]Dr. Airam TripathiALT [Catalytic activity/Vol]22 U/IPlchyl07-72Amt [facility] Comment on above:Performed By: #### CMP ####[facility] Oomnvjijlv8399[address] [place], [place] [address]Dr.Yilan ChangAnion gap [Moles/Vol]11.4 mmol/LNormalThe [facility] HospitalComment on above:Performed By: #### CMP ####[facility] Ytwvkvgjht5049[address] [place], [place] [address]Dr. Airam ChangAST [Catalytic activity/Vol]22 U/DWnmalm34-77Fqp [facility] Comment on above:Performed By: #### CMP ####[facility] Mvuabxkhtx501[address] [place], [place] [address]Dr.Airam ChangBilirubin [Mass/Vol]0.3 mg/dL Normal0.2-1.0The [facility] HospitalComment on above:Performed By: #### CMP ####[facility] Wwsehkvmzn610[address] [place], [place] [address]Dr. Airam ChangCalcium [Mass/Vol]8.1 mg/dLCritically low8.5-10.1The [facility] HospitalComment on above:Performed By: #### CMP ####[facility] Mpeuqryfmh80280[address] [place], [place] [address]Dr.Airam ChangChloride [Moles/Vol]100 mmol/YIpyzdp70-231Hvf [facility] HospitalComment on above:Performed By: #### CMP ####[facility] Owehtaazgi9[address] [place], [place] [address]Dr.Selenaneil ChangCO2 [Moles/Vol]25.6 mmol/TChvmyg57.0-32.0The [facility] HospitalComment on above:Performed By: #### CMP ####[facility] Fiditrfchy0409[address] [place], [place] [address]Dr.Airam ChangCreatinine [Mass/Vol]1.21 mg/dLCritically high0.55-1.02The [facility] HospitalComment on above:Performed By: #### CMP ####[facility] Mtcbybgazw5929[address] [place], [place] [address]Dr.Yilan ChangEGFR-AF UYCFQVOL58 mL/min/1.73m2 Critically low>=60The [facility] HospitalComment on above:Performed By: #### CMP ####[facility] Jtutvoggor206[address] [place], [place] [address]Dr. Yilan ChangEGFR-NON AF GFABZXJT39 mL/min/1.04d6Dlkpicptoo low>=60The [facility] HospitalComment on above:Performed By: #### CMP ####[facility] Tzxobyoffq758[address] [place], [place] [address]Dr.Yilan ChangGlobulin (S) [Mass/Vol]3.0 g/dLNoCleveland Clinic Fairview HospitalComment on above:Performed By: #### CMP ####[facility] Xljvfigepq82[address] [place], [place] [address]Dr.Yilan ChangGlucose [Mass/Vol]84 mg/iFRgrpqe03-771Nua [facility] Comment on above:Performed By: #### CMP ####[facility] Emqpkvjhcj145[address] [place], [place] [address]Dr.Yilan ChangPotassium [Moles/Vol]4.0 mmol/LNormal3.5-5.1The [facility] HospitalComment on above:Performed By: #### CMP ####[facility] Mnwjdvgkio172[address] [place], [place] [address]Dr. Yilan ChangProtein [Mass/Vol]6.3 g/dLCritically low6.4-8.2The [facility] Comment on above:Performed By: #### CMP ####[facility] Isegwprwaa47230[address] [place], [place] [address]Dr.Yilan ChangSodium [Moles/Vol]133 mmol/L Critically xhf091-541Mnf [facility] HospitalComment on above:Performed By: #### CMP ####[facility] Lvkuqoqnlq3717[address] [place], [place] [address]Dr. Yilan ChangUrea nitrogen [Mass/Vol]29.0 mg/dLCritically high7.0-18.0The [facility] HospitalComment on above:Performed By: #### CMP ####[facility] Mvshgcqtao723[address] [place], [place] [address]Dr.Yilan ChangUrea nitrogen/Creatinine [Mass ratio]24.0 mg/mgNoCleveland Clinic Fairview HospitalComment on above:Performed By: #### CMP ####[facility] Mgiydaxnbv[address] [place] [address]Dr.Airam ChangOSMOLALITYon 55-00-3297Imxqcxqtvt [Osmolality]285 mosm/ivAwlpxz313-801Pfn [facility] HospitalComment on above: Performed By: #### OSMO ####[facility] Fevplosdht385[address] [place], [place] [address]Dr. Airam ChangCBC AUTO DIFFon 99-69-2739AGQE #0.0 103/ulNormal0.0-0.1The [facility] HospitalComment on above:Performed By: #### CBC ####[facility] Rypthlnaui27020[address] [place], [place] [address]Dr. Airam ChangBasophils/100 WBC (Bld)0.3 %Normal0.2-2.0The [facility] HospitalCommclaren flint on above:Performed By: #### CBC ####[facility] Mtidqnsldu255[address] [place], [place] [address]Dr.Selenalan ChangEO #0.2 103/ulNormal0.0-0.7The [facility] HospitalComment on above:Performed By: #### CBC ####[facility] Ssscpssdcl412[address] [place], [place] [address]Dr.Airam ChangEosinophils/100 WBC (Bld)2.7 %Normal0.9-7.0The [facility] on above:Performed By: #### CBC ####[facility] Zxequsfrcc444[address] [place], [place] [address]Dr.Airam ChangErythrocyte distribution width (RBC) [Ratio]14.4 %Normal 11.0-15.0The [facility] Centerment on above:Performed By: #### CBC ####[facility] Xamzmnupxo690[address] [place], [place] [address]Dr. Airam ChangHematocrit (Bld) [Volume fraction]32.5 %Critically low36.0-48.0The [facility] HospitalComment on above:Performed By: #### CBC ####[facility] Nndvvccmdq996[address] [place], [place] [address]Dr.Airam ChangHemoglobin (Bld) [Mass/Vol]10.1 g/dLCritically low12.0-16.0The [facility] HospitalComment on above:Performed By: #### CBC ####[facility] Uywmjykbsf894[address] [place], [place] [address]DrBroderick TripathiIG #0.03 10e3/ulNormal0.00-0.03The [facility] HospitalComment on above:Performed By: #### CBC ####[facility] Krspfobzlf28230[address] [place], [place] [address]Dr.Airam Tripathi %0.4 %Normal 0.0-0.5The [facility] HospitalComment on above:Performed By: #### CBC ####[facility] Gxmihstcwc0601[address] [place], [place] [address]Dr.Airam TripathiJACOBI MEDICAL CENTERH #1.4 103/ulNormal1.2-3.8The [facility] HospitalComment on above:Performed By: #### CBC ####[facility] Tnzjayeyfj124[address] [place], [place] [address]Dr.Airam TripathiStrong Memorial Hospitalhocytes/100 WBC (Bld)19.4 %Critically low20.5-60.0The [facility] HospitalComment on above:Performed By: #### CBC ####[facility] Vzzqounbzl18350[address] [place], [place] [address]Dr.Airam TripathiSKWENTNAUAL DIFF REQ NONormalThe [facility] HospitalComment on above:Performed By: #### CBC ####[facility] Mjysbocwao2813[address] [place], [place] [address]Dr. Airam TripathiKINGS [facility] (RBC) [Entitic mass]30.6 jwVvoltq19.7-34.0The [facility] Comment on above:Performed By: #### CBC ####[facility] Idozglbcia74[address] [place], [place] [address]DrBroderick TripathiNASSAU [facility] (RBC) [Mass/Vol]31.1 g/dL Kmfxtu84.9-35.2The [facility] HospitalComment on above:Performed By: #### CBC ####[facility] Uducvafvex237[address] [place], [place] [address]Dr. Airam TripathiMCV (RBC) [Entitic vol]98.5 iFNxnpmc45.0-99.0The [facility] Comment on above:Performed By: #### CBC ####[facility] Sdbtwgwdfd003[address] [place], [place] [address]Dr.Airam TripathiMONO #0.5 103/ulNormal0.3-0.[address] [facility] HospitalComment on above:Performed By: #### CBC ####[facility] Mngprhcbdx40220[address] [place], [place] [address]Dr.Airam Tripathi Monocytes/100 WBC (Bld)6.7 %Normal1.7-12.0The [facility] HospitalComment on above: Performed By: #### CBC ####[facility] Wpvljumdug3279[address] [place], [place] [address]Dr.Airam TripathiNEUT #5.2 103/ulNormal1.4-6.5The [facility] HospitalComment on above:Performed By: #### CBC ####[facility] Dgpxnnystg469[address] [place], [place] [address]Dr.Airam TripathiNeutrophils/100 WBC (Bld)70.5 %Wevuhk59.0-75.0The [facility] HospitalComment on above:Performed By: #### CBC ####[facility] Rrrkgdshyq997[address] [place], [place] [address]Dr.Airam TripathiPlatelet mean volume (Bld) [Entitic vol]9.8 fLNormal9.5-13.[address] [facility] HospitalComment on above:Performed By: #### CBC ####[facility] Tltfnzyjmz5617[address] [place], [place] [address]Dr.Airam TripathiPLT277 103/qnIuxdop796-113Sih [facility] HospitalComment on above:Performed By: #### CBC ####[facility] Vshvbyiuei097[address] [place], [place] [address]Dr. Airam TripathiRBC3.30 106/ulCritically low4.20-5.40The [facility] HospitalComment on above:Performed By: #### CBC ####[facility] Ejydbtbwxd698[address] [place], [place] [address]Dr.Airam ChangWBC7.4 103/ulNormal4.0-11.0The [facility] HospitalComment on above:Performed By: #### CBC ####[facility] Dzdqlcwuas313[address] [place], [place] [address]Dr.Airam ChangPROF 14(COMP METB)on 35-15-5157Awwrdbg [Mass/Vol]3.6 g/dLNormal3.4-5.0The [facility] Comment on above:Performed By: #### CMP ####[facility] Zlgubtwnzm4625[address] [place], [place] [address]Dr.Airam TripathiAlbumin/Globulin [Mass ratio] 1.1 {ratio}NormalThe [facility] HospitalComment on above:Performed By: #### CMP ####[facility] Ttryqaiwzi604[address] [place], [place] [address]Dr. Airam TripathiALP [Catalytic activity/Vol]112 U/JCdvexu85-709Hur [facility] Comment on above:Performed By: #### CMP ####[facility] Hhdiyoggsc65360[address] [place], [place] [address]Dr.Airam ChangALT [Catalytic activity/Vol]26 U/HLztfjb65-66Bwb [facility] HospitalComment on above:Performed By: #### CMP ####[facility] Haqdgwqwvr805[address] [place], [place] [address]Dr. Airam TripathiAnion gap [Moles/Vol]12.0 mmol/LNormalThe [facility] HospitalComment on above:Performed By: #### CMP ####[facility] Pclvtdblxb843[address] [place], [place] [address]Dr.Airam ChangAST [Catalytic activity/Vol]25 U/LNormal 15-37The [facility] HospitalComment on above:Performed By: #### CMP ####[facility] Kuzssmivyq5215[address] [place], [place] [address]Dr.Airam Tripathi Bilirubin [Mass/Vol]0.4 mg/dLNormal0.2-1.0The [facility] HospitalComment on above: Performed By: #### CMP ####[facility] Byeffyxltb[address] [place] [address]Dr.Yilan ChangCalcium [Mass/Vol]8.9 mg/dLNormal 8.5-10.1The [facility] HospitalComment on above:Performed By: #### CMP ####[facility] Bsrsfpcmxi[address] [place], [place] [address]Dr. Yilan ChangChloride [Moles/Vol]101 mmol/XXirgto27-377Wis [facility] Comment on above:Performed By: #### CMP ####[facility] Tcztrbwrfu07[address] [place], [place] [address]Dr.Yilan ChangCO2 [Moles/Vol]24.0 mmol/L Bnziqv95.0-32.0The [facility] HospitalComment on above:Performed By: #### CMP ####[facility] Frbddoffei129[address] [place], [place] [address]Dr. Yilan ChangCreatinine [Mass/Vol]1.51 mg/dLCritically high0.55-1.02The [facility] HospitalComment on above:Performed By: #### CMP ####[facility] Xztfnnklhl[address] [place], [place] [address]Dr.Yilan ChangEGFR-AF JSPCZCIL89 mL/min/1.83d5Jmwsrybwxp low>=60The [facility] HospitalComment on above: Performed By: #### CMP ####[facility] Qluajjaajc4399[address] [place], [place] [address]Dr.Yilan ChangEGFR-NON AF HMURFPZC64 mL/min/1.73m2 Critically low>=60The [facility] HospitalComment on above:Performed By: #### CMP ####[facility] Uqqzskbszj216[address] [place], [place] [address]Dr. Yilan ChangGlobulin (S) [Mass/Vol]3.2 g/dLNormalThe [facility] HospitalComment on above:Performed By: #### CMP ####[facility] Attwqhjtxx757[address] [place], [place] [address]Dr.Yilan ChangGlucose [Mass/Vol]82 mg/sJSbigkc75-[address] [facility] HospitalComment on above:Performed By: #### CMP ####[facility] Zgvgwxkpsa4[address] [place] [address]Dr.Airam Tripathi Potassium [Moles/Vol]4.0 mmol/LNormal3.5-5.1The [facility] HospitalComment on above:Performed By: #### CMP ####[facility] Hkaoyzabdg222[address] [place], [place] [address]Dr.Airam ChangProtein [Mass/Vol]6.8 g/dLNormal6.4-8.[address] [facility] HospitalComment on above:Performed By: #### CMP ####[facility] Tqvhbxwggh327[address] [place], [place] [address]Dr.Airam TripathiSodium [Moles/Vol]133 mmol/LCritically ezw266-170Ihg [facility] HospitalComment on above:Performed By: #### CMP ####[facility] Xcuvyjepjp932[address] [place], [place] [address]Dr.Airam TripathiUrea nitrogen [Mass/Vol]37.0 mg/dL Critically high7.0-18.0The [facility] HospitalComment on above:Performed By: #### CMP ####[facility] Gujsmuutud87260[address] [place], [place] [address]Dr. Airam ChangUrea nitrogen/Creatinine [Mass ratio]24.5 mg/mgNormalThe [facility] HospitalComment on above:Performed By: #### CMP ####[facility] Aawwqxmlsg454[address] [place], [place] [address]Dr.Airam DeuceOSMOLALITYon 14-61-0300Ctcfjhrgwl [Osmolality]284 mosm/hzIijvia742-150Xpi [facility] Comment on above:Performed By: #### OSMO ####[facility] Ftmgddhxzc670[address] [place], [place] [address]Dr. Airam TripathiCBC AUTO DIFFon 03-04-2022 BASO #0.0 103/ulNormal0.0-0.1The [facility] HospitalComment on above:Performed By: #### CBC ####[facility] Lgetkmzupk306[address] [place], [place] [address]Dr.Selenalan ChangBasophils/100 WBC (Bld)0.3 %Normal0.2-2.0The [facility] HospitalComment on above:Performed By: #### CBC ####[facility] Pxgbtutaol43[address] [place], [place] [address]Dr.Yilan ChangEO #0.1 103/ul Normal0.0-0.7The [facility] HospitalComment on above:Performed By: #### CBC ####[facility] Hlypkqdzjj14[address] [place], [place] [address]Dr. Yilan ChangEosinophils/100 WBC (Bld)2.0 %Normal0.9-7.0The [facility] Comment on above:Performed By: #### CBC ####[facility] Kxswkvegda057[address] [place], [place] [address]Dr.Yilan ChangErythrocyte distribution width (RBC) [Ratio]14.5 %Jxjhym82.0-15.0The [facility] HospitalComment on above: Performed By: #### CBC ####[facility] Oofwshbdqy934[address] [place], [place] [address]Dr.Yilan ChangHematocrit (Bld) [Volume fraction]35.4 % Critically low36.0-48.0The [facility] HospitalComment on above:Performed By: #### CBC ####[facility] Icztetsmmd9215[address] [place], [place] [address]Dr. Selenalan ChangHemoglobin (Bld) [Mass/Vol]11.0 g/dLCritically low12.0-16.0The [facility] HospitalComment on above:Performed By: #### CBC ####[facility] Igcysoeznv[address] [place], [place] [address]Dr.Yilan ChangIG #0.03 10e3/ulNormal0.00-0.03The [facility] HospitalComment on above:Performed By: #### CBC ####[facility] Nixsmlqdvu917[address] [place], [place] [address]Dr. Yilan ChangIG %0.4 %Normal0.0-0.5The [facility] HospitalComment on above:Performed By: #### CBC ####[facility] Zecarzinpg[address] [place] [address]Dr.Airam TripathiLYMPH #1.7 103/ulNormal1.2-3.8The [facility] Comment on above:Performed By: #### CBC ####[facility] Nxpdopemnd8[address] [place] [address]Dr.Airam TripathiLymphocytes/100 WBC (Bld)23.8 %Xdnlow89.5-60.0The [facility] HospitalComment on above:Performed By: #### CBC ####[facility] Mhsatnlfgv9[address] [place], [place] [address]Dr. Airam ChangMANUAL DIFF REQNONormalThe [facility] HospitalComment on above: Performed By: #### CBC ####[facility] Jkuajaovuz18[address] [place], [place] [address]Dr.Airam TripathiH (RBC) [Entitic mass]30.0 pgNormal 26.7-34.0The [facility] HospitalComment on above:Performed By: #### CBC ####[facility] Cimrjginoq4027[address] [place], [place] [address]Dr. Airam TripathiMCHC (RBC) [Mass/Vol]31.1 g/rJXrjwij63.9-35.2The [facility] Comment on above:Performed By: #### CBC ####[facility] Zvdouhiphi0601[address] [place], [place] [address]Dr.Airam TripathiMCV (RBC) [Entitic vol]96.5 fL Rvkvsi47.0-99.0The [facility] HospitalComment on above:Performed By: #### CBC ####[facility] Zbqgxbenkk926[address] [place], [place] [address]Dr. Airam TripathiMONO #0.5 103/ulNormal0.3-0.8The [facility] HospitalComment on above: Performed By: #### CBC ####[facility] Fdkkvxcjix239[address] [place], [place] [address]Dr.Airam ChangMonocytes/100 WBC (Bld)6.6 %Normal 1.7-12.0The [facility] HospitalComment on above:Performed By: #### CBC ####[facility] Amopolmrin[address] [place] [address]Dr. Airam TripathiNEUT #4.7 103/ulNormal1.4-6.5The [facility] HospitalComment on above: Performed By: #### CBC ####[facility] Qypkmppvgq2[address] [place] [address]Dr.Airam TripathiNeutrophils/100 WBC (Bld)66.9 %Normal 43.0-75.0The [facility] HospitalComment on above:Performed By: #### CBC ####[facility] Mloxqegmpp22[address] [place] [address]Dr. Airam TripathiPlatelet mean volume (Bld) [Entitic vol]10.2 fLNormal9.5-13.5The [facility] on above:Performed By: #### CBC ####[facility] Oyqucppxun[address] [place], [place] [address]Dr.Airam TripathiPLT270 103/ul Ncxkji119-894Lvx [facility] HospitalComment on above:Performed By: #### CBC ####[facility] Socsvosfcv680[address] [place], [place] [address]Dr. Selenaneil DeuceRBC3.67 106/ulCritically low4.20-5.40The [facility] on above:Performed By: #### CBC ####[facility] Bmeagirfcd939[address] [place], [place] [address]Dr.Selenaneil TripathiWBC7.0 103/ulNormal4.0-11.0The [facility] on above:Performed By: #### CBC ####[facility] Dlpqymmwck5[address] [place], [place] [address]Dr.Airam DeucePROF 14(COMP METB)on 04-44-0824Rhugtyx [Mass/Vol]3.3 g/dLCritically low3.4-5.0The [facility] on above:Performed By: #### CMP ####[facility] Mluvrpnwgw[address] [place], [place] [address]Dr.Airam Tripathi Albumin/Globulin [Mass ratio]1.0 {ratio}NormalThe [facility] HospitalComment on above:Performed By: #### CMP ####[facility] Wvjpkzwtsq[address] [place] [address]Dr.Yilan ChangALP [Catalytic activity/Vol]107 U/L Epuomy36-293Uso [facility] HospitalComment on above:Performed By: #### CMP ####[facility] Cxadeyxokr54[address] [place] [address]Dr. Yilan ChangALT [Catalytic activity/Vol]23 U/OCmasye69-15Ndw [facility] Comment on above:Performed By: #### CMP ####[facility] Ovawqelush[address] [place], [place] [address]Dr.Yilan ChangAnion gap [Moles/Vol]13.0 mmol/LNormalThe [facility] HospitalComment on above:Performed By: #### CMP ####[facility] Ernbfpiyuu[address] [place], [place] [address]Dr. Yilan ChangAST [Catalytic activity/Vol]30 U/GMbajyb49-10Djy [facility] Comment on above:Performed By: #### CMP ####[facility] Exuaqpuvsq[address] [place], [place] [address]Dr.Yilan ChangBilirubin [Mass/Vol]0.2 mg/dL Normal0.2-1.0The [facility] HospitalComment on above:Performed By: #### CMP ####[facility] Mefykmyaws[address] [place], [place] [address]Dr. Yilan ChangCalcium [Mass/Vol]8.8 mg/dLNormal8.5-10.1The [facility] HospitalComment on above:Performed By: #### CMP ####[facility] Ynnriwnrfv[address] [place], [place] [address]Dr.Yilan ChangChloride [Moles/Vol]103 mmol/LNormal 98-107The [facility] HospitalComment on above:Performed By: #### CMP ####[facility] Dxuamjqsry[address] [place], [place] [address]Dr.Yilan ChangCO2 [Moles/Vol]24.9 mmol/WOtbcir35.0-32.0The [facility] HospitalComment on above: Performed By: #### CMP ####[facility] [address] [place] [address]Dr.Yilan ChangCreatinine [Mass/Vol]1.06 mg/dL Critically high0.55-1.02The [facility] on above:Performed By: #### CMP ####[facility] Xfugivrgde[address] [place], [place] [address]Dr.Yilan ChangEGFR-AF CUBAN>60Normal>=60The [facility] HospitalComment on above:Performed By: #### CMP ####[facility] Ejiguibggz28[address] [place], [place] [address]Dr.Yilan ChangEGFR-NON AF CARQISNC12 mL/min/1.73m2 Critically low>=60The [facility] on above:Performed By: #### CMP ####[facility] Pqrdeulaxt[address] [place], [place] [address]Dr. Airam ChangGlobulin (S) [Mass/Vol]3.2 g/dLNormalThe [facility] HospitalCommclaren flint on above:Performed By: #### CMP ####[facility] Sboofodppk68[address] [place], [place] [address]Dr.Yilan ChangGlucose [Mass/Vol]91 mg/nXDtczfy58-864 [facility] on above:Performed By: #### CMP ####[facility] Isxjdrfxls[address] [place], [place] [address]Dr.Airam Tripathi Potassium [Moles/Vol]3.9 mmol/LNormal3.5-5.1The [facility] on above:Performed By: #### CMP ####[facility] Xutmzgpqrd76[address] [place], [place] [address]Dr.Yilan ChangProtein [Mass/Vol]6.5 g/dLNormal6.4-8.[address] [facility] HospitalCommclaren flint on above:Performed By: #### CMP ####[facility] Qydurbadvf639[address] [place], [place] [address]Dr.Yilan ChangSodium [Moles/Vol]137 mmol/ZLuqjrd525-725Vzj [facility] on above: Performed By: #### CMP ####[facility] Koxxdgmmbs[address] [place] [address]Dr.Airam ChangUrea nitrogen [Mass/Vol]27.0 mg/dL Critically high7.0-18.0The [facility] on above:Performed By: #### CMP ####[facility] Xirbyqqdzj48[address] [place], [place] [address]Dr. Selenalan ChangUrea nitrogen/Creatinine [Mass ratio]25.5 mg/mgNormalThe [facility] on above:Performed By: #### CMP ####[facility] Tdljwtkxku7[address] [place], [place] [address]Dr.Selenalan ChangOSMOLALITYon 56-30-0920Eoaldqjhzg [Osmolality]383 mosm/kgInvalid Interpretation [id number] The [facility] on above:Result Comment: Verified by repeat analysisPerformed By: #### OSMO ####[facility] Ldhxubovaz9[address] [place], [place] [address]Dr. Airam ChangCBC AUTO DIFFon [id number] #0.0 103/ulNormal0.0-0.1The [facility] on above:Performed By: #### CBC ####[facility] Rqvtfttheu409[address] [place], [place] [address]Dr. Yilan ChangBasophils/100 WBC (Bld)0.4 %Normal0.2-2.0The [facility] on above:Performed By: #### CBC ####[facility] Ropkczyedq337[address] [place], [place] [address]Dr.Yilan ChangEO #0.2 103/ulNormal0.0-0.7The [facility] on above:Performed By: #### CBC ####[facility] Ielzwqthcd[address] [place], [place] [address]Dr.Selenalan ChangEosinophils/100 WBC (Bld)3.9 %Normal0.9-7.0The [facility] on above:Performed By: #### CBC ####[facility] Okydrxbxys501[address] [place], [place] [address]Dr.Airam ChangErythrocyte distribution width (RBC) [Ratio]13.9 %Normal 11.0-15.0The [facility] HospitalComment on above:Performed By: #### CBC ####[facility] Tveqvcyeqt[address] [place], [place] [address]Dr. Airam ChangHematocrit (Bld) [Volume fraction]32.7 %Critically low36.0-48.0The [facility] HospitalComment on above:Performed By: #### CBC ####[facility] Hviusutsod854[address] [place], [place] [address]Dr.Selenaneil ChangHemoglobin (Bld) [Mass/Vol]10.7 g/dLCritically low12.0-16.0The [facility] HospitalComment on above:Performed By: #### CBC ####[facility] Ikkdvvjaof547[address] [place], [place] [address]Dr.Selenaneil ChangIG #0.02 10e3/ulNormal0.00-0.03The [facility] HospitalComment on above:Performed By: #### CBC ####[facility] Rmftahbubt029[address] [place], [place] [address]Dr.Selenaneil ChangIG %0.4 %Normal 0.0-0.5The [facility] HospitalComment on above:Performed By: #### CBC ####[facility] Cceeegpmpe1114[address] [place], [place] [address]Dr.Airam ChangLYMPH #1.2 103/ulNormal1.2-3.8The [facility] HospitalComment on above:Performed By: #### CBC ####[facility] Pcanzmdrnt926[address] [place], [place] [address]Dr.Selenaneil ChangLymphocytes/100 WBC (Bld)25.0 %Iivrtx57.5-60.0The [facility] HospitalComment on above:Performed By: #### CBC ####[facility] Zrefjvtmsu326[address] [place], [place] [address]Dr.Selenaneil DeuceMANUAL DIFF REQ NONormalThe [facility] HospitalComment on above:Performed By: #### CBC ####[facility] T[address]rls[address] [place] [address]Dr. Airam TripathiH (RBC) [Entitic mass]30.7 xvAtdfvh28.7-34.0The [facility] Comment on above:Performed By: #### CBC ####[facility] Kytmrbxbbe11[address] [place], [place] [address]Dr.Airam TripathiMCHC (RBC) [Mass/Vol]32.7 g/dL Hwizkh79.9-35.2The [facility] HospitalComment on above:Performed By: #### CBC ####[facility] Ufmrtyuupk224[address] [place], [place] [address]Dr. Airam TripathiMCV (RBC) [Entitic vol]93.7 xQRkmckl82.0-99.0The [facility] Comment on above:Performed By: #### CBC ####[facility] Qfdjaajjhj048[address] [place], [place] [address]Dr.Airam TripathiMONO #0.4 103/ulNormal0.3-0.[address] [facility] HospitalComment on above:Performed By: #### CBC ####[facility] Wzguhsrtge440[address] [place], [place] [address]Dr.Airam Tripathi Monocytes/100 WBC (Bld)7.5 %Normal1.7-12.0The [facility] HospitalComment on above: Performed By: #### CBC ####[facility] Ootrbbokci597[address] [place], [place] [address]Dr.Airam TripathiNEUT #3.1 103/ulNormal1.4-6.5The [facility] HospitalComment on above:Performed By: #### CBC ####[facility] Mscjlrotoa843[address] [place], [place] [address]Dr.Airam TripathiNeutrophils/100 WBC (Bld)62.8 %Fzvquk79.0-75.0The [facility] HospitalComment on above:Performed By: #### CBC ####[facility] Dqprdlpetl1215[address] [place], [place] [address]Dr.Airam TripathiPlatelet mean volume (Bld) [Entitic vol]9.5 fLNormal9.5-13.[address] [facility] HospitalComment on above:Performed By: #### CBC ####[facility] Bzjsnkahct[address] [place] [address]Dr.Airam TripathiPLT250 103/yqEbsath942-633Pzs [facility] HospitalComment on above:Performed By: #### CBC ####[facility] Qifodcfgzu397[address] [place], [place] [address]Dr. Airam TripathiRBC3.49 106/ulCritically low4.20-5.40The [facility] HospitalComment on above:Performed By: #### CBC ####[facility] Ugqqqiahmo0325[address] [place], [place] [address]Dr.Airam TripathiWBC4.9 103/ulNormal4.0-11.0The [facility] HospitalComment on above:Performed By: #### CBC ####[facility] Himetwylcq579[address] [place], [place] [address]Dr.Airam TripathiPROF 14(COMP METB)on 60-75-6162Lvpymve [Mass/Vol]3.3 g/dLCritically low3.4-5.0The [facility] HospitalComment on above:Performed By: #### CMP ####[facility] Sfflntwxoh152[address] [place], [place] [address]Dr.Airam Tripathi Albumin/Globulin [Mass ratio]1.0 {ratio}NormalThe [facility] HospitalComment on above:Performed By: #### CMP ####[facility] Mhxhpwczgo972[address] [place], [place] [address]Dr.Airam TripathiALP [Catalytic activity/Vol]127 U/L Critically zgoi02-205Tmh [facility] HospitalComment on above:Performed By: #### CMP ####[facility] Vldmgjhlzy364[address] [place], [place] [address]Dr. Airam TripathiALT [Catalytic activity/Vol]22 U/DPgmfiq25-70Mvx [facility] Comment on above:Performed By: #### CMP ####[facility] Hqrrdgrumh038[address] [place], [place] [address]Dr.Yilan ChangAnion gap [Moles/Vol]11.9 mmol/LNormalThe [facility] HospitalComment on above:Performed By: #### CMP ####[facility] Yvimgtbzcc090[address] [place], [place] [address]Dr. Selenaneil ChangAST [Catalytic activity/Vol]21 U/XAlklnv72-16Edx [facility] Comment on above:Performed By: #### CMP ####[facility] Yqllgpxuzh101[address] [place], [place] [address]Dr.Airam ChangBilirubin [Mass/Vol]0.3 mg/dL Normal0.2-1.0The [facility] HospitalComment on above:Performed By: #### CMP ####[facility] Bwkrxlcttk806[address] [place], [place] [address]Dr. Airam ChangCalcium [Mass/Vol]8.6 mg/dLNormal8.5-10.1The [facility] HospitalComment on above:Performed By: #### CMP ####[facility] Ikyinfbrib498[address] [place], [place] [address]Dr.Airam ChangChloride [Moles/Vol]105 mmol/LNormal 98-107The [facility] HospitalComment on above:Performed By: #### CMP ####[facility] Vewpevkwgj584[address] [place], [place] [address]Dr.Airam ChangCO2 [Moles/Vol]23.6 mmol/JUcpbnt00.0-32.0The [facility] HospitalComment on above: Performed By: #### CMP ####[facility] Ojtnmhywqd657[address] [place], [place] [address]Dr.Airam ChangCreatinine [Mass/Vol]1.29 mg/dL Critically high0.55-1.02The [facility] HospitalComment on above:Performed By: #### CMP ####[facility] Vxmqxopotw898[address] [place], [place] [address]Dr.Airam ChangEGFR-AF QKMHTOOE00 mL/min/1.39w4Lygphupzdg low>=60The [facility] HospitalComment on above:Performed By: #### CMP ####[facility] Ogvchvgllu[address] [place], [place] [address]Dr.Yilan ChangEGFR-NON AF YGFQGUUA56 mL/min/1.18n0Pujootcjxj low>=60The [facility] HospitalComment on above: Performed By: #### CMP ####[facility] Mrprxxqgsu719[address] [place], [place] [address]Dr.Yilan ChangGlobulin (S) [Mass/Vol]3.2 g/dLNormUC West Chester HospitalComment on above:Performed By: #### CMP ####[facility] Slqbstfmye097[address] [place], [place] [address]Dr.Yilan ChangGlucose [Mass/Vol]94 mg/sHCmswnp22-673Ihu [facility] HospitalComment on above:Performed By: #### CMP ####[facility] Bycctzhupw025[address] [place], [place] [address]Dr.Yilan ChangPotassium [Moles/Vol]3.5 mmol/LNormal3.5-5.1The [facility] HospitalComment on above:Performed By: #### CMP ####[facility] Nqtwzyeapk4419[address] [place], [place] [address]Dr.Yilan ChangProtein [Mass/Vol]6.5 g/dLNormal6.4-8.2The [facility] HospitalComment on above:Performed By: #### CMP ####[facility] Vymrgnphwn4414[address] [place], [place] [address]Dr.Yilan ChangSodium [Moles/Vol]137 mmol/UOzyjmd143-442Awb [facility] HospitalComment on above:Performed By: #### CMP ####[facility] Zcntgxelkl448[address] [place], [place] [address]Dr.Yilan ChangUrea nitrogen [Mass/Vol]37.0 mg/dLCritically high7.0-18.0The [facility] HospitalComment on above:Performed By: #### CMP ####[facility] Blkicpwgmm819[address] [place], [place] [address]Dr.Yilan ChangUrea nitrogen/Creatinine [Mass ratio] 28.7 mg/mgNoCleveland Clinic Fairview HospitalComment on above:Performed By: #### CMP ####[facility] Sfpxejfwrc[address] [place] [address]Dr. Airam TripathiOSMOLALITYon 47-14-3431Isrnnfhtmm [Osmolality]283 mosm/kgNormal 275-295The [facility] HospitalComment on above:Performed By: #### OSMO ####[facility] Gdirxnmrdp729[address] [place], [place] [address]Dr. Airam TripathiCBC AUTO DIFFon 14-99-0720KYQE #0.0 103/ulNormal0.0-0.1The [facility] HospitalComment on above:Performed By: #### CBC ####[facility] Ouxazwesmx465[address] [place], [place] [address]Dr.Selenaneil DeuceBasophils/100 WBC (Bld)0.3 %Normal0.2-2.0The [facility] on above:Performed By: #### CBC ####[facility] Hmmygfivoi50500[address] [place], [place] [address]Dr.Selenalan ChangEO #0.1 103/ulNormal0.0-0.7The [facility] Centerment on above:Performed By: #### CBC ####[facility] Cwjquzrhlj2637[address] [place], [place] [address]Dr.Selenaneil ChangEosinophils/100 WBC (Bld)1.6 %Normal 0.9-7.0The [facility] on above:Performed By: #### CBC ####[facility] Mdhbbhhdvb398[address] [place], [place] [address]Dr.Airam Tripathi Erythrocyte distribution width (RBC) [Ratio]13.4 %Wlnbhx13.0-15.0The [facility] Centerment on above:Performed By: #### CBC ####[facility] Vsbvlhitxr743[address] [place], [place] [address]Dr.Airam TripathiHematocrit (Bld) [Volume fraction]31.4 %Critically low36.0-48.0The [facility] Centerment on above:Performed By: #### CBC ####[facility] Vuoufzrwps465[address] [place], [place] [address]Dr.Airam TripathiHemoglobin (Bld) [Mass/Vol]10.0 g/dL Critically low12.0-16.0The [facility] HospitalComment on above:Performed By: #### CBC ####[facility] Wsxkhvfrki932[address] [place], [place] [address]DrKianna TripathiIG #0.03 10e3/ulNormal0.00-0.03The [facility] HospitalComment on above: Performed By: #### CBC ####[facility] Vfvnvwnwgk074[address] [place], [place] [address]Dr.Airam TripathiIG %0.4 %Normal0.0-0.5The [facility] HospitalComment on above:Performed By: #### CBC ####[facility] Ndbnovnwri2912[address] [place], [place] [address]Dr.Airam TripathiJACOBI MEDICAL CENTERH #1.6 103/ulNormal1.2-3.8The [facility] HospitalComment on above:Performed By: #### CBC ####[facility] Klceyjraec19360[address] [place], [place] [address]Dr. Airam Dosshocytes/100 WBC (Bld)24.5 %Ynfgcc36.5-60.0The [facility] Comment on above:Performed By: #### CBC ####[facility] Glbopbhnrk705[address] [place], [place] [address]Dr.Airam TripathiMANUAL DIFF REQNONormalThe [facility] HospitalComment on above:Performed By: #### CBC ####[facility] Mihnyitcen029[address] [place], [place] [address]Dr.Airam TripathiK[facility] (RBC) [Entitic mass]30.2 mpHvervl70.7-34.0The [facility] HospitalComment on above: Performed By: #### CBC ####[facility] Qyjdcizqxc3624[address] [place], [place] [address]Dr.Airam TripathiNASSAU [facility]IV[facility] (RBC) [Mass/Vol]31.8 g/dLNormal 29.9-35.2The [facility] HospitalComment on above:Performed By: #### CBC ####[facility] Pntsohweos857[address] [place], [place] [address]Dr. Airam TripathiMCV (RBC) [Entitic vol]94.9 lCDaqcsz86.0-99.0The [facility] Comment on above:Performed By: #### CBC ####[facility] Ujfcoylyez[address] [place], [place] [address]Dr.Airam TripathiMONO #0.4 103/ulNormal0.3-0.[address] [facility] HospitalComment on above:Performed By: #### CBC ####[facility] Pimpprhvmf4239[address] [place], [place] [address]Dr.Airam Tripathi Monocytes/100 WBC (Bld)5.8 %Normal1.7-12.0The [facility] HospitalComment on above: Performed By: #### CBC ####[facility] Xorvbogdlz7859[address] [place], [place] [address]Dr.Airam TripathiNEUT #4.5 103/ulNormal1.4-6.5The [facility] HospitalComment on above:Performed By: #### CBC ####[facility] Ckhkcfiglj262[address] [place], [place] [address]Dr.Airam TripathiNeutrophils/100 WBC (Bld)67.4 %Zwxfhu45.0-75.0The [facility] HospitalComment on above:Performed By: #### CBC ####[facility] Yjsmleipbr846[address] [place], [place] [address]Dr.Airam TripathiPlatelet mean volume (Bld) [Entitic vol]9.6 fLNormal9.5-13.[address] [facility] HospitalComment on above:Performed By: #### CBC ####[facility] Mucajnzgjg894[address] [place], [place] [address]Dr.Airam TrpiathiPLT251 103/vfPmazyw137-894Vpl [facility] HospitalComment on above:Performed By: #### CBC ####[facility] Muqjkloaea289[address] [place], [place] [address]Dr. Airam TripathiRBC3.31 106/ulCritically low4.20-5.40The [facility] HospitalComment on above:Performed By: #### CBC ####[facility] Iowxrqegxa275[address] [place], [place] [address]Dr.Airam ChangWBC6.7 103/ulNormal4.0-11.0The [facility] HospitalComment on above:Performed By: #### CBC ####[facility] [address]xtjucwqoi[address] [place] [address]Dr.Airam ChangPROF 14(COMP METB)on 84-09-4454Tiyvziz [Mass/Vol]3.5 g/dLNormal3.4-5.0The [facility] Comment on above:Performed By: #### CMP ####[facility] Skqkghzqqv47[address] [place] [address]Dr.Selenaneil ChangAlbumin/Globulin [Mass ratio] 1.2 {ratio}NormalThe [facility] HospitalComment on above:Performed By: #### CMP ####[facility] Uzcwyvhuhf969[address] [place], [place] [address]Dr. Airam ChangALP [Catalytic activity/Vol]130 U/LCritically khxv10-267Kjc [facility] HospitalComment on above:Performed By: #### CMP ####[facility] Ztpcnzrsyf1314[address] [place], [place] [address]Dr.Yineil ChangALT [Catalytic activity/Vol]18 U/ETojtpg51-54Bao [facility] HospitalComment on above:Performed By: #### CMP ####[facility] Airufnosmp06[address] [place], [place] [address]Dr.Airam ChangAnion gap [Moles/Vol]14.0 mmol/LNormalThe [facility] Comment on above:Performed By: #### CMP ####[facility] Pzhaqfaygo025[address] [place], [place] [address]Dr.Yilan ChangAST [Catalytic activity/Vol]20 U/ZNoydaq76-51Mif [facility] HospitalComment on above:Performed By: #### CMP ####[facility] Aretudxeur[address] [place], [place] [address]Dr. Airam ChangBilirubin [Mass/Vol]0.3 mg/dLNormal0.2-1.0The [facility] Comment on above:Performed By: #### CMP ####[facility] Sk[address]ekpife[address] [place] [address]Dr.Yilan ChangCalcium [Mass/Vol]8.5 mg/dL Normal8.5-10.1The [facility] HospitalComment on above:Performed By: #### CMP ####[facility] Ozlnjoaymw620[address] [place], [place] [address]Dr. Yilan ChangChloride [Moles/Vol]100 mmol/EAdyoff99-353Iqu [facility] Comment on above:Performed By: #### CMP ####[facility] Munwwlaxlu05[address] [place], [place] [address]Dr.Yilan ChangCO2 [Moles/Vol]22.7 mmol/L Koketn75.0-32.0The [facility] HospitalComment on above:Performed By: #### CMP ####[facility] Lltohrhbow205[address] [place], [place] [address]Dr. Yilan ChangCreatinine [Mass/Vol]1.28 mg/dLCritically high0.55-1.02The [facility] HospitalComment on above:Performed By: #### CMP ####[facility] Kufkmaucob[address] [place], [place] [address]Dr.Yilan ChangEGFR-AF VIGLCQCA15 mL/min/1.53r3Qouumfooda low>=60The [facility] HospitalComment on above: Performed By: #### CMP ####[facility] Gncoyptjtx9817[address] [place], [place] [address]Dr.Yilan ChangEGFR-NON AF PXHFBVMC70 mL/min/1.73m2 Critically low>=60The [facility] HospitalComment on above:Performed By: #### CMP ####[facility] Bphqtsaxvi[address] [place], [place] [address]Dr. Yilan ChangGlobulin (S) [Mass/Vol]2.9 g/dLNormalThe [facility] HospitalComment on above:Performed By: #### CMP ####[facility] Hzdgwerzvj800[address] [place], [place] [address]Dr.Yilan ChangGlucose [Mass/Vol]93 mg/dGZwjcig06-[address] [facility] HospitalComment on above:Performed By: #### CMP ####[facility] Tmqktzjxjn80[address] [place] [address]Dr.Airam Tripathi Potassium [Moles/Vol]3.7 mmol/LNormal3.5-5.1The [facility] HospitalComment on above:Performed By: #### CMP ####[facility] Sfgbkqjjao395[address] [place], [place] [address]Dr.Airam ChangProtein [Mass/Vol]6.4 g/dLNormal6.4-8.[address] [facility] HospitalComment on above:Performed By: #### CMP ####[facility] Umnbumtspr[address] [place], [place] [address]Dr.Airam ChangSodium [Moles/Vol]133 mmol/LCritically smn139-441Vsk [facility] HospitalComment on above:Performed By: #### CMP ####[facility] Egwzkkucjq466[address] [place], [place] [address]Dr.Airam TripathiUrea nitrogen [Mass/Vol]44.0 mg/dL Critically high7.0-18.0The [facility] HospitalComment on above:Performed By: #### CMP ####[facility] Svjzdyvyfw[address] [place], [place] [address]Dr. Airam ChangUrea nitrogen/Creatinine [Mass ratio]34.4 mg/mgNormalThe [facility] HospitalComment on above:Performed By: #### CMP ####[facility] Tkhecilgik[address] [place], [place] [address]Dr.Airam TripathiOSMOLALITYon 84-48-5056Eujwnnamfg [Osmolality]288 mosm/xdDjtoji857-825Evc [facility] Comment on above:Performed By: #### OSMO ####[facility] Zcqbfwatlq8[address] [place], [place] [address]Dr. Airam TripathiCBC AUTO DIFFon 02-08-2022 BASO #0.0 103/ulNormal0.0-0.1The [facility] HospitalComment on above:Performed By: #### CBC ####[facility] Pidstsgogp[address] [place], [place] [address]Dr.Airam ChangBasophils/100 WBC (Bld)0.3 %Normal0.2-2.0The [facility] HospitalComment on above:Performed By: #### CBC ####[facility] [address]qyhwgauhk[address] [place], [place] [address]Dr.Yilan ChangEO #0.2 103/ul Normal0.0-0.7The [facility] HospitalComment on above:Performed By: #### CBC ####[facility] Qwyjuzpnqd58[address] [place], [place] [address]Dr. Selenalan ChangEosinophils/100 WBC (Bld)2.1 %Normal0.9-7.0The [facility] Comment on above:Performed By: #### CBC ####[facility] Wtuptnnybo[address] [place], [place] [address]Dr.Airam ChangErythrocyte distribution width (RBC) [Ratio]13.4 %Lfxtqp42.0-15.0The [facility] HospitalComment on above: Performed By: #### CBC ####[facility] Baumorphjz[address] [place], [place] [address]Dr.Airam ChangHematocrit (Bld) [Volume fraction]35.1 % Critically low36.0-48.0The [facility] HospitalComment on above:Performed By: #### CBC ####[facility] Ukmzqpjdyg[address] [place], [place] [address]Dr. Airam ChangHemoglobin (Bld) [Mass/Vol]10.9 g/dLCritically low12.0-16.0The [facility] HospitalComment on above:Performed By: #### CBC ####[facility] Oavibwojxz[address] [place], [place] [address]Dr.Airam ChangIG #0.03 10e3/ulNormal0.00-0.03The [facility] HospitalComment on above:Performed By: #### CBC ####[facility] Lnpokhovmk[address] [place], [place] [address]Dr. Selenalan ChangIG %0.3 %Normal0.0-0.5The [facility] HospitalComment on above:Performed By: #### CBC ####[facility] Sjoknqessw[address] [place], [place] [address]Dr.Airam TripathiLYMPH #1.3 103/ulNormal1.2-3.8The [facility] Comment on above:Performed By: #### CBC ####[facility] [address]hnkedit[address] [place] [address]Dr.Airam TripathiLymphocytes/100 WBC (Bld)13.1 %Critically low20.5-60.0The [facility] HospitalComment on above:Performed By: #### CBC ####[facility] Jlhygzsrfq[address] [place] [address]Dr.Airam TripathiMANUAL DIFF REQNONormalThe [facility] HospitalComment on above: Performed By: #### CBC ####[facility] Qsnxzvxiyc63[address] [place] [address]Dr.Airam TripathiH (RBC) [Entitic mass]30.4 pgNormal 26.7-34.0The [facility] HospitalComment on above:Performed By: #### CBC ####[facility] Zaevlsdlzs[address] [place] [address]Dr. Airam TripathiHC (RBC) [Mass/Vol]31.1 g/jRQubffi61.9-35.2The [facility] Comment on above:Performed By: #### CBC ####[facility] Oqhjadnuvz2[address] [place] [address]Dr.Airam TripathiMCV (RBC) [Entitic vol]98.0 fL Utgotg34.0-99.0The [facility] HospitalComment on above:Performed By: #### CBC ####[facility] Nnypgybuwm[address] [place] [address]Dr. Airam TripathiMONO #0.5 103/ulNormal0.3-0.8The [facility] HospitalComment on above: Performed By: #### CBC ####[facility] Pfumpiydzj97[address] [place] [address]Dr.Airam ChangMonocytes/100 WBC (Bld)4.7 %Normal 1.7-12.0The [facility] HospitalComment on above:Performed By: #### CBC ####[facility] Kvkryhhrtp2[address] [place] [address]Dr. Airam TripathiNEUT #7.7 103/ulCritically high1.4-6.5The [facility] HospitalComment on above:Performed By: #### CBC ####[facility] Oukhytlzkf4[address] [place] [address]Dr.Airam TripathiNeutrophils/100 WBC (Bld)79.5 % Critically high43.0-75.0The [facility] HospitalComment on above:Performed By: #### CBC ####[facility] Qnujkoteet3350 [place] [address]Dr. Airam TripathiPlatelet mean volume (Bld) [Entitic vol]9.6 fLNormal9.5-13.5The [facility] HospitalComment on above:Performed By: #### CBC ####[facility] Xemoxxtuem[address] [place] [address]Dr.Airam HxqpuRIN395 103/ul Uchvfg155-631Wtf [facility] HospitalComment on above:Performed By: #### CBC ####[facility] Xatspxznjr3[address] [place] [address]Dr. Airam ChangRBC3.58 106/ulCritically low4.20-5.40The [facility] HospitalComment on above:Performed By: #### CBC ####[facility] Vpryeyshur6[address] [place] [address]Dr.Airam ChangWBC9.7 103/ulNormal4.0-11.0The [facility] HospitalComment on above:Performed By: #### CBC ####[facility] Urnfjjuuba[address] [place], [place] [address]Dr.Seleanneil ChangPROF 14(COMP METB)on 18-94-5942Ahudvcg [Mass/Vol]3.6 g/dLNormal3.4-5.0The [facility] Comment on above:Performed By: #### CMP ####[facility] Ywdtlhnqxh[address] [place], [place] [address]Dr.Airam TripathiAlbumin/Globulin [Mass ratio] 1.1 {ratio}NormalThe [facility] HospitalComment on above:Performed By: #### CMP ####[facility] Jtdmpxhuaf35[address] [place] [address]Dr. Yilan ChangALP [Catalytic activity/Vol]131 U/LCritically tpqq96-767Rcf [facility] HospitalComment on above:Performed By: #### CMP ####[facility] Axhszqwlqe14[address] [place] [address]Dr.Yilan ChangALT [Catalytic activity/Vol]22 U/POyvvrp24-96Lcu [facility] HospitalComment on above:Performed By: #### CMP ####[facility] Mrmtohytgy9406 [place] [address]Dr.Yilan ChangAnion gap [Moles/Vol]13.3 mmol/LNormalThe [facility] Comment on above:Performed By: #### CMP ####[facility] Oxaonltkzx[address] [place], [place] [address]Dr.Yilan ChangAST [Catalytic activity/Vol]23 U/HPkzyxu37-48Sbx [facility] HospitalComment on above:Performed By: #### CMP ####[facility] Gbojindztz724[address] [place], [place] [address]Dr. Yilan ChangBilirubin [Mass/Vol]0.3 mg/dLNormal0.2-1.0The [facility] Comment on above:Performed By: #### CMP ####[facility] Nkizwvzuvb[address] [place], [place] [address]Dr.Yilan ChangCalcium [Mass/Vol]8.7 mg/dL Normal8.5-10.1The [facility] HospitalComment on above:Performed By: #### CMP ####[facility] Plcsdwalzb65[address] [place] [address]Dr. Yilan ChangChloride [Moles/Vol]104 mmol/AAtgiov62-564Rjv [facility] Comment on above:Performed By: #### CMP ####[facility] Ajssouhkkg2608 [place] [address]Dr.Yilan ChangCO2 [Moles/Vol]22.0 mmol/L Gjzdzx00.0-32.0The [facility] HospitalComment on above:Performed By: #### CMP ####[facility] Jwjdltizau8[address] [place] [address]Dr. Airam ChangCreatinine [Mass/Vol]1.20 mg/dLCritically high0.55-1.02The [facility] on above:Performed By: #### CMP ####[facility] Whldxecuoc8[address] [place] [address]Dr.Yilan ChangEGFR-AF HEJHEQBF30 mL/min/1.98x2Linpxecasd low>=60The [facility] HospitalCommclaren flint on above: Performed By: #### CMP ####[facility] Wlgajsjnne[address] [place], [place] [address]Dr.Yilan ChangEGFR-NON AF YCDAJFOL06 mL/min/1.73m2 Critically low>=60The [facility] on above:Performed By: #### CMP ####[facility] Sckgaxaktc50[address] [place], [place] [address]Dr. Airam ChangGlobulin (S) [Mass/Vol]3.2 g/dLNormalThOhioHealth Doctors HospitalCommclaren flint on above:Performed By: #### CMP ####[facility] Ccoxxomukt470[address] [place], [place] [address]Dr.Yilan ChangGlucose [Mass/Vol]98 mg/oLQwgcou03-179 [facility] on above:Performed By: #### CMP ####[facility] Uzebpqpapf765[address] [place], [place] [address]Dr.Airam Tripathi Potassium [Moles/Vol]4.3 mmol/LNormal3.5-5.1[facility] on above:Performed By: #### CMP ####[facility] Zvieekqnap[address] [place], [place] [address]Dr.Yilan ChangProtein [Mass/Vol]6.8 g/dLNormal6.4-8.2 [facility] on above:Performed By: #### CMP ####[facility] Aysbkfqcwk264[address] [place], [place] [address]Dr.Yilan ChangSodium [Moles/Vol]135 mmol/LCritically yjw447-092Ngy [facility] HospitalComment on above:Performed By: #### CMP ####[facility] Ngberyzxwg17[address] [place], [place] [address]Dr.Selenalan ChangUrea nitrogen [Mass/Vol]33.0 mg/dL Critically high7.0-18.0The [facility] HospitalComment on above:Performed By: #### CMP ####[facility] Xaqvryvelq[address] [place], [place] [address]Dr. Yilan ChangUrea nitrogen/Creatinine [Mass ratio]27.5 mg/mgNormalThe [facility] HospitalComment on above:Performed By: #### CMP ####[facility] Bdoaksnalv[address] [place], [place] [address]Dr.Selenalan ChangOSMOLALITYon 24-24-3195Wzbtybopxt [Osmolality]299 mosm/kgCritically dwaw006-188Ztg [facility] HospitalComment on above:Performed By: #### OSMO ####[facility] Qoijiehmxa[address] [place], [place] [address]Dr. Yilan ChangCBC AUTO DIFF on 31-88-5233UCNK #0.0 103/ulNormal0.0-0.1The [facility] HospitalComment on above: Performed By: #### CBC ####[facility] Mdpuumyxvf359[address] [place], [place] [address]Dr.Yilan ChangBasophils/100 WBC (Bld)0.4 %Normal 0.2-2.0The [facility] HospitalComment on above:Performed By: #### CBC ####[facility] Yqqfctushj636[address] [place], [place] [address]Dr.Yilan ChangEO # 0.3 103/ulNormal0.0-0.7The [facility] HospitalComment on above:Performed By: #### CBC ####[facility] Acrrblsdkn849[address] [place], [place] [address]Dr. Yilan ChangEosinophils/100 WBC (Bld)3.6 %Normal0.9-7.0The [facility] Comment on above:Performed By: #### CBC ####[facility] Tiqvyamvri168[address] [place], [place] [address]Dr.Selenaneil ChangErythrocyte distribution width (RBC) [Ratio]13.2 %Xmfexe43.0-15.0The [facility] HospitalComment on above: Performed By: #### CBC ####[facility] Tkrsxjfamz46[address] [place], [place] [address]Dr.Selenaneil ChangHematocrit (Bld) [Volume fraction]32.0 % Critically low36.0-48.0The [facility]Comment on [facility]:Performed By: #### CBC ####[facility] Gcacfmqlcf443[address] [place], [place] [address]Dr. Selenaneil ChangHemoglobin (Bld) [Mass/Vol]9.8 g/dLCritically low12.0-16.0The [facility] HospitalComment on above:Performed By: #### CBC ####[facility] Vghhznwmsp45[address] [place], [place] [address]Dr.Yilan ChangIG #0.03 10e3/ulNormal0.00-0.03The [facility] HospitalComment on above:Performed By: #### CBC ####[facility] Jdvkjclljs333[address] [place], [place] [address]Dr. Airam ChangIG %0.4 %Normal0.0-0.5The [facility] HospitalComment on above:Performed By: #### CBC ####[facility] Qqcnqdboof399[address] [place], [place] [address]Dr.Selenalan ChangLYMPH #1.7 103/ulNormal1.2-3.8The [facility] Comment on above:Performed By: #### CBC ####[facility] Wihqchmhze311[address] [place], [place] [address]Dr.Selenaneil TripathiLymphocytes/100 WBC (Bld)24.8 %Jiuytc22.5-60.0The [facility] HospitalComment on above:Performed By: #### CBC ####[facility] Lguzskqqtt257[address] [place], [place] [address]Dr. Selenalan ChangMANUAL DIFF REQNONormalThe [facility] HospitalComment on above: Performed By: #### CBC ####[facility] Dyfxaycgky[address] [place] [address]Dr.Airam TripathiH (RBC) [Entitic mass]29.6 pgNormal 26.7-34.0The [facility] HospitalComment on above:Performed By: #### CBC ####[facility] Qkutjsmsug1383 [place] [address]Dr. Airam TripathiHC (RBC) [Mass/Vol]30.6 g/tKQtyqji59.9-35.2The [facility] Comment on above:Performed By: #### CBC ####[facility] Lvudkmsneb639[address] [place], [place] [address]Dr.Selenaneil TripathiMCV (RBC) [Entitic vol]96.7 fL Jwwycj50.0-99.0The [facility] HospitalComment on above:Performed By: #### CBC ####[facility] Ubjlqvlqel338[address] [place], [place] [address]Dr. Airam DeuceMONO #0.4 103/ulNormal0.3-0.8The [facility] HospitalComment on above: Performed By: #### CBC ####[facility] Ogccpgmxco737[address] [place], [place] [address]Dr.Selenaneil TripathiMonocytes/100 WBC (Bld)6.3 %Normal 1.7-12.0The [facility] HospitalComment on above:Performed By: #### CBC ####[facility] Gkdekqeaee630[address] [place], [place] [address]Dr. Airam DeuceNEUT #4.5 103/ulNormal1.4-6.5The [facility] HospitalComment on above: Performed By: #### CBC ####[facility] Pagawrwlkl394[address] [place], [place] [address]Dr.Selenaneil TripathiNeutrophils/100 WBC (Bld)64.5 %Normal 43.0-75.0The [facility] HospitalComment on above:Performed By: #### CBC ####[facility] Vsnnggsrhv117[address] [place], [place] [address]Dr. Airam DeucePlatelet mean volume (Bld) [Entitic vol]9.3 fLCritically low9.5-13.[address] [facility] HospitalComment on above:Performed By: #### CBC ####[facility] Lbekiyewjm[address] [place] [address]Dr.Airam TripathiPLT243 103/yjGlpmsf728-567Mou [facility] HospitalComment on above:Performed By: #### CBC ####[facility] Aomxnmyjjn860[address] [place], [place] [address]Dr. Airam TripathiRBC3.31 106/ulCritically low4.20-5.40The [facility] HospitalComment on above:Performed By: #### CBC ####[facility] Wzbbohhspd557[address] [place], [place] [address]Dr.Airam TripathiWBC7.0 103/ulNormal4.0-11.0The [facility] HospitalComment on above:Performed By: #### CBC ####[facility] Xlkvipvhnx913[address] [place], [place] [address]Dr.Airam TripathiPROF 14(COMP METB)on 59-08-3707Seubxhc [Mass/Vol]3.3 g/dLCritically low3.4-5.0The [facility] HospitalComment on above:Performed By: #### CMP ####[facility] Enwkkjtiex050[address] [place], [place] [address]Dr.Airam Tripathi Albumin/Globulin [Mass ratio]1.1 {ratio}NormalThe [facility] HospitalComment on above:Performed By: #### CMP ####[facility] Eaunxmwaii99[address] [place], [place] [address]Dr.Airam TripathiALP [Catalytic activity/Vol]126 U/L Critically imkw86-631Ryp [facility] HospitalComment on above:Performed By: #### CMP ####[facility] Hfaxqfbthd936[address] [place], [place] [address]Dr. Airam TripathiALT [Catalytic activity/Vol]21 U/XUsjwzr38-33Lii [facility] Comment on above:Performed By: #### CMP ####[facility] Qcbvrycqhc715[address] [place], [place] [address]Dr.Airam TripathiAnion gap [Moles/Vol]11.8 mmol/LNormalThe [facility] HospitalComment on above:Performed By: #### CMP ####[facility] Shcpprlrfb806[address] [place], [place] [address]Dr. Yilan ChangAST [Catalytic activity/Vol]22 U/LCklpjf76-53Eap [facility] Comment on above:Performed By: #### CMP ####[facility] Pyrtzbgxvh802[address] [place], [place] [address]Dr.Yilan ChangBilirubin [Mass/Vol]0.3 mg/dL Normal0.2-1.0The [facility] HospitalComment on above:Performed By: #### CMP ####[facility] Rklwqmhmvx983[address] [place], [place] [address]Dr. Yilan ChangCalcium [Mass/Vol]8.7 mg/dLNormal8.5-10.1The [facility] HospitalComment on above:Performed By: #### CMP ####[facility] Gerxiibbio676[address] [place], [place] [address]Dr.Yilan ChangChloride [Moles/Vol]102 mmol/LNormal 98-107The [facility] HospitalComment on above:Performed By: #### CMP ####[facility] Qjchcmrqjl006[address] [place], [place] [address]Dr.Yilan ChangCO2 [Moles/Vol]25.5 mmol/BIyvpih21.0-32.0The [facility] HospitalComment on above: Performed By: #### CMP ####[facility] Kkmnrypboj573[address] [place], [place] [address]Dr.Yilan ChangCreatinine [Mass/Vol]1.43 mg/dL Critically high0.55-1.02The [facility] HospitalComment on above:Performed By: #### CMP ####[facility] Xbhlwpfrck954[address] [place], [place] [address]Dr.Yilan ChangEGFR-AF STYRFNUQ68 mL/min/1.11z3Cdkjnkrjtx low>=60The [facility] HospitalComment on above:Performed By: #### CMP ####[facility] Nbdmnowjjs39[address] [place], [place] [address]Dr.Yilan ChangEGFR-NON AF FSWFGTLP91 mL/min/1.37a4Unydypczrl low>=60The [facility] HospitalComment on above: Performed By: #### CMP ####[facility] Girdfheqry949[address] [place], [place] [address]Dr.Yilan ChangGlobulin (S) [Mass/Vol]2.9 g/dLNormalThOhioHealth Doctors HospitalComment on above:Performed By: #### CMP ####[facility] Epdfvggczc[address] [place], [place] [address]Dr.Yilan ChangGlucose [Mass/Vol]83 mg/bHPdsgmm82-909Mgc [facility] HospitalComment on above:Performed By: #### CMP ####[facility] Ytfczejfsk81[address] [place], [place] [address]Dr.Yilan ChangPotassium [Moles/Vol]4.3 mmol/LNormal3.5-5.1The [facility] HospitalComment on above:Performed By: #### CMP ####[facility] Sfmnngguzb838[address] [place], [place] [address]Dr.Yilan ChangProtein [Mass/Vol]6.2 g/dLCritically low6.4-8.2The [facility] HospitalComment on above: Performed By: #### CMP ####[facility] Jccxbpdabh357[address] [place], [place] [address]Dr.Yilan ChangSodium [Moles/Vol]135 mmol/LCritically wqj789-018Ahy [facility] HospitalComment on above:Performed By: #### CMP ####[facility] Dhtatmjlbb069[address] [place], [place] [address]Dr. Yilan ChangUrea nitrogen [Mass/Vol]39.0 mg/dLCritically high7.0-18.0The [facility] HospitalComment on above:Performed By: #### CMP ####[facility] Qmdqmatmda542[address] [place], [place] [address]Dr.Yilan ChangUrea nitrogen/Creatinine [Mass ratio]27.3 mg/mgNormalThOhioHealth Doctors HospitalComment on above:Performed By: #### CMP ####[facility] Pefdhmkwnn9[address] [place], [place] [address]Dr.Selenaneil ChangOSMOLALITYon 43-69-7960Rygbriizsr [Osmolality]292 mosm/jqQswnvp059-479Qpa [facility] HospitalComment on above: Performed By: #### OSMO ####[facility] Ohmigojhml[address] [place] [address]Dr. Selenaneil ChangCBC AUTO DIFFon 98-71-1567FTCV #0.0 103/ulNormal0.0-0.1The [facility] HospitalComment on above:Performed By: #### CBC ####[facility] Oknqaxuuaf7[address] [place] [address]Dr. Selenaneil ChangBasophils/100 WBC (Bld)0.4 %Normal0.2-2.0The [facility] on above:Performed By: #### CBC ####[facility] Rxrspogoww[address] [place], [place] [address]Dr.Selenalan ChangEO #0.2 103/ulNormal0.0-0.7The [facility] Centerment on above:Performed By: #### CBC ####[facility] Hhqwlxztfl[address] [place], [place] [address]Dr.Airam ChangEosinophils/100 WBC (Bld)3.4 %Normal0.9-7.0The [facility] on above:Performed By: #### CBC ####[facility] Jtejntvozr16[address] [place], [place] [address]Dr.Airam ChangErythrocyte distribution width (RBC) [Ratio]13.1 %Normal 11.0-15.0The [facility] Centerment on above:Performed By: #### CBC ####[facility] Dppxoqrlji459[address] [place], [place] [address]Dr. Airam ChangHematocrit (Bld) [Volume fraction]31.6 %Critically low36.0-48.0The [facility] Centerment on above:Performed By: #### CBC ####[facility] Ahlgccficn845[address] [place], [place] [address]Dr.Airam ChangHemoglobin (Bld) [Mass/Vol]9.9 g/dLCritically low12.0-16.0The [facility] HospitalComment on above:Performed By: #### CBC ####[facility] Watxkpstwf411[address] [place], [place] [address]Dr.Airam TripathiIG #0.02 10e3/ulNormal0.00-0.03The [facility] HospitalComment on above:Performed By: #### CBC ####[facility] Ibvpdvjbba[address] [place], [place] [address]Dr.Airam TripathiIG %0.4 %Normal 0.0-0.5The [facility]Comment on above:Performed By: #### CBC ####[facility] Rqksnahvgd1913[address] [place], [place] [address]Dr.Airam DossMPH #1.0 103/ulCritically low1.2-3.8The [facility] HospitalComment on above:Performed By: #### CBC ####[facility] Jrhtofwdli7239[address] [place], [place] [address]Dr.Airam Dossmphocytes/100 WBC (Bld)17.4 %Critically low20.5-60.[address] [facility] HospitalComment on above:Performed By: #### CBC ####[facility] Ermgvtqddy301[address] [place], [place] [address]Dr.Airam TripathiMANUAL DIFF REQNONormalThe [facility] HospitalComment on above:Performed By: #### CBC ####[facility] Hywlezizbc857[address] [place], [place] [address]Dr. Airam TripathiK[facility] (RBC) [Entitic mass]30.1 zvZrlcqf52.7-34.0The [facility] Comment on above:Performed By: #### CBC ####[facility] Xufqhthywp58[address] [place], [place] [address]Dr.Airam TripathiNASS[facility] (RBC) [Mass/Vol]31.3 g/dL Bguubj68.9-35.2The [facility] HospitalComment on above:Performed By: #### CBC ####[facility] Psbhfqpdhb264[address] [place], [place] [address]Dr. Airam TripathiMCV (RBC) [Entitic vol]96.0 xDWlnnzu46.0-99.0The [facility] Comment on above:Performed By: #### CBC ####[facility] Exhcqwsqcj8[address] [place] [address]Dr.Airam TripathiMONO #0.5 103/ulNormal0.3-0.[address] [facility] HospitalComment on above:Performed By: #### CBC ####[facility] Otqudprrik[address] [place], [place] [address]Dr.Airam Tripathi Monocytes/100 WBC (Bld)8.6 %Normal1.7-12.0The [facility] HospitalComment on above: Performed By: #### CBC ####[facility] Rlpfrgltyk[address] [place], [place] [address]Dr.Airam TripathiNEUT #3.9 103/ulNormal1.4-6.5The [facility] HospitalComment on above:Performed By: #### CBC ####[facility] Zqhouxmyvt08[address] [place], [place] [address]Dr.Airam TripathiNeutrophils/100 WBC (Bld)69.8 %Gjkhhx60.0-75.0The [facility] HospitalComment on above:Performed By: #### CBC ####[facility] Unfddxpzef239[address] [place], [place] [address]Dr.Airam TripathiPlatelet mean volume (Bld) [Entitic vol]9.6 fLNormal9.5-13.[address] [facility] HospitalComment on above:Performed By: #### CBC ####[facility] Mvojjwhvwv[address] [place], [place] [address]Dr.Airam TripathiPLT228 103/ymVawpim629-867Xzs [facility] HospitalComment on above:Performed By: #### CBC ####[facility] Szvtayfesy[address] [place], [place] [address]Dr. Airam TripathiRBC3.29 106/ulCritically low4.20-5.40The [facility] HospitalComment on above:Performed By: #### CBC ####[facility] Mbxurjxywq[address] [place], [place] [address]Dr.Airam ChangWBC5.6 103/ulNormal4.0-11.0The [facility] HospitalComment on above:Performed By: #### CBC ####[facility] Kxpucmahfd[address] [place], [place] [address]Dr.Airam TripathiPROF 14(COMP METB)on 58-74-7067Mjfofhi [Mass/Vol]3.1 g/dLCritically low3.4-5.0The [facility] HospitalComment on above:Performed By: #### CMP ####[facility] Xbmxvmczmd[address] [place], [place] [address]Dr.Selenaneil Tripathi Albumin/Globulin [Mass ratio]1.0 {ratio}NormalThe [facility] HospitalComment on above:Performed By: #### CMP ####[facility] Gbzajirbwb[address] [place], [place] [address]Dr.Airam ChangALP [Catalytic activity/Vol]131 U/L Critically cxub00-350Gwr [facility] HospitalComment on above:Performed By: #### CMP ####[facility] Gajpafwsrz[address] [place], [place] [address]Dr. Airam DeuceALT [Catalytic activity/Vol]19 U/NZvgbel03-28Otp [facility] Comment on above:Performed By: #### CMP ####[facility] Sempwxbctw4713[address] [place], [place] [address]Dr.Airam DeuceAnion gap [Moles/Vol]12.9 mmol/LNormalThe [facility] HospitalComment on above:Performed By: #### CMP ####[facility] Ozekykbmwa[address] [place], [place] [address]Dr. Airam ChangAST [Catalytic activity/Vol]21 U/HFnhxgg16-63Cio [facility] Comment on above:Performed By: #### CMP ####[facility] Fwuwgvpjpc260[address] [place], [place] [address]Dr.Airam ChangBilirubin [Mass/Vol]0.2 mg/dL Normal0.2-1.0The [facility] HospitalComment on above:Performed By: #### CMP ####[facility] [address] [place] [address]Dr. Yilan ChangCalcium [Mass/Vol]8.4 mg/dLCritically low8.5-10.1The [facility] HospitalComment on above:Performed By: #### CMP ####[facility] Elmphsebsg[address] [place], [place] [address]Dr.Yilan ChangChloride [Moles/Vol]103 mmol/FZnnfud10-827Fqz [facility] HospitalComment on above:Performed By: #### CMP ####[facility] Febnpcmdos8037[address] [place], [place] [address]Dr.Yilan ChangCO2 [Moles/Vol]23.7 mmol/OZhlpmr25.0-32.0The [facility] HospitalComment on above:Performed By: #### CMP ####[facility] Xmyrwqixty637[address] [place], [place] [address]Dr.Yilan ChangCreatinine [Mass/Vol]1.37 mg/dLCritically high0.55-1.02The [facility] HospitalComment on above:Performed By: #### CMP ####[facility] Mcoevvolrm34[address] [place], [place] [address]Dr.Yilan ChangEGFR-AF NSVDERUX45 mL/min/1.73m2 Critically low>=60The [facility] HospitalComment on above:Performed By: #### CMP ####[facility] Ytjstkqrya075[address] [place], [place] [address]Dr. Yilan ChangEGFR-NON AF PGTJTAIW09 mL/min/1.90s9Pqlngjihib low>=60The [facility] HospitalComment on above:Performed By: #### CMP ####[facility] Ckhfrhxmhf005[address] [place], [place] [address]Dr.Yilan ChangGlobulin (S) [Mass/Vol]3.1 g/dLNormalThe [facility] HospitalComment on above:Performed By: #### CMP ####[facility] Vtkdrzvdyc[address] [place], [place] [address]Dr.Yilan ChangGlucose [Mass/Vol]88 mg/rAFxvxxs52-953Wyr [facility] Comment on above:Performed By: #### CMP ####[facility] Bxueuowtwd673[address] [place], [place] [address]Dr.Yilan ChangPotassium [Moles/Vol]4.6 mmol/LNormal3.5-5.1The [facility] HospitalComment on above:Performed By: #### CMP ####[facility] Zcqfxiyynd11[address] [place], [place] [address]Dr. Yilan ChangProtein [Mass/Vol]6.2 g/dLCritically low6.4-8.2The [facility] Comment on above:Performed By: #### CMP ####[facility] Gcecrsxwto978[address] [place], [place] [address]Dr.Yilan ChangSodium [Moles/Vol]135 mmol/L Critically ywc304-496Sym [facility] HospitalComment on above:Performed By: #### CMP ####[facility] Lcipvangsr138[address] [place], [place] [address]Dr. Airam ChangUrea nitrogen [Mass/Vol]34.0 mg/dLCritically high7.0-18.0The [facility] HospitalComment on above:Performed By: #### CMP ####[facility] Gznoqjghqb787[address] [place], [place] [address]Dr.Selenalan ChangUrea nitrogen/Creatinine [Mass ratio]24.8 mg/mgNormalThe [facility] HospitalComment on above:Performed By: #### CMP ####[facility] Maxkqeaotr200[address] [place], [place] [address]Dr.Airam ChangOSMOLALITYon 72-84-4017Fzhqxakbrv [Osmolality]276 mosm/lvAjgckn877-082Wdr [facility] HospitalComment on above: Performed By: #### OSMO ####[facility] Ftxkikulzp158[address] [place], [place] [address]Dr. Selenalan ChangMRI CSPINE WO CONon [id number] CSPINE WO CONNormalThe [facility] HospitalCB AUTO DIFFon [id number] #0.0 103/ulNormal0.0-0.1The [facility] HospitalComment on above:Performed By: #### CBC ####[facility] Ejwnsnkxyy[address] [place] [id number]. Yilan ChangBasophils/100 WBC (Bld)0.2 %Normal0.2-2.0The [facility] HospitalComment on above:Performed By: #### CBC ####[facility] Qqnltyvwws464[address] [place], [place] [address]Dr.Yilan ChangEO #0.2 103/ulNormal0.0-0.7The [facility] HospitalComment on above:Performed By: #### CBC ####[facility] Fodrjgyijh105[address] [place], [place] [address]Dr.Yilan ChangEosinophils/100 WBC (Bld)2.1 %Normal0.9-7.0The [facility] HospitalCommclaren flint on above:Performed By: #### CBC ####[facility] Qsfjufjnws650[address] [place], [place] [address]Dr.Yilan ChangErythrocyte distribution width (RBC) [Ratio]12.7 %Normal 11.0-15.0The [facility] HospitalComment on above:Performed By: #### CBC ####[facility] Nyfheaysto5112[address] [place], [place] [address]Dr. Selenalan ChangHematocrit (Bld) [Volume fraction]32.2 %Critically low36.0-48.0The [facility] HospitalCommclaren flint on above:Performed By: #### CBC ####[facility] Adritvxdxn0017[address] [place], [place] [address]Dr.Yilan ChangHemoglobin (Bld) [Mass/Vol]10.4 g/dLCritically low12.0-16.0The [facility] HospitalComment on above:Performed By: #### CBC ####[facility] Adczarfxhu18110[address] [place], [place] [address]Dr.Yilan ChangIG #0.03 10e3/ulNormal0.00-0.03The [facility] HospitalCommclaren flint on above:Performed By: #### CBC ####[facility] Kreqksuqem000[address] [place], [place] [address]Dr.Yilan ChangIG %0.3 %Normal 0.0-0.5The [facility] HospitalComment on above:Performed By: #### CBC ####[facility] Vwajrfmbmd[address] [place] [address]Dr.Airam DossMPH #1.4 103/ulNormal1.2-3.8The [facility] HospitalComment on above:Performed By: #### CBC ####[facility] Koaknoqxru[address] [place] [address]Dr.Airam TripathiLymphocytes/100 WBC (Bld)16.0 %Critically low20.5-60.0The [facility] HospitalComment on above:Performed By: #### CBC ####[facility] Ueiwvrcorw196[address] [place], [place] [address]Dr.Airam TripathiMANUAL DIFF REQ NONormalThe [facility] HospitalComment on above:Performed By: #### CBC ####[facility] Zcybbtindy70280[address] [place], [place] [address]Dr. Airam DeuceH (RBC) [Entitic mass]30.0 oiKmpqnn70.7-34.0[facility] Comment on above:Performed By: #### CBC ####[facility] Dmnivaasoc9614[address] [place], [place] [address]Dr.Airam TripathiMCHC (RBC) [Mass/Vol]32.3 g/dL Hgdhox23.9-35.2The [facility] HospitalComment on above:Performed By: #### CBC ####[facility] Phtijppdbs1979[address] [place], [place] [address]Dr. Airam TripathiV (RBC) [Entitic vol]92.8 jLKilutv62.0-99.0The [facility] Comment on above:Performed By: #### CBC ####[facility] Mtkakrwiwb99[address] [place], [place] [address]Dr.Airam DeuceMONO #0.4 103/ulNormal0.3-0.[address] [facility] HospitalComment on above:Performed By: #### CBC ####[facility] Jqbeudruxj506[address] [place], [place] [address]DrKiannaSelenaneil Tripathi Monocytes/100 WBC (Bld)4.9 %Normal1.7-12.0The [facility] HospitalComment on above: Performed By: #### CBC ####[facility] Agopzngzlm853[address] [place], [place] [address]Dr.Airam TripathiNEUT #6.6 103/ulCritically high1.4-6.[address] [facility] HospitalComment on above:Performed By: #### CBC ####[facility] Aypyefracm963[address] [place], [place] [address]Dr.Airam Tripathi Neutrophils/100 WBC (Bld)76.5 %Critically high43.0-75.0The [facility] Comment on above:Performed By: #### CBC ####[facility] Sjfyekupib756[address] [place], [place] [address]Dr.Airam TripathiPlatelet mean volume (Bld) [Entitic vol]9.8 fLNormal9.5-13.5The [facility] HospitalComment on above:Performed By: #### CBC ####[facility] Vdcqpigxqa068[address] [place], [place] [address]Dr.Airam TripathiPLT262 103/fvTikmxg488-285Fln [facility] HospitalComment on above:Performed By: #### CBC ####[facility] Hhjhvvkupi922[address] [place], [place] [address]Dr.Airam TripathiRBC3.47 106/ulCritically low4.20-5.40The [facility] HospitalComment on above:Performed By: #### CBC ####[facility] Ouboqvjlfp787[address] [place], [place] [address]Dr.Airam TripathiWBC8.7 103/ul Normal4.0-11.0The [facility] HospitalComment on above:Performed By: #### CBC ####[facility] Gfioapfqbv484[address] [place], [place] [address]Dr. Airam DeucePROF 14(COMP METB)on 18-66-1716Xtstytp [Mass/Vol]3.3 g/dLCritically low3.4-5.0The [facility] HospitalComment on above:Performed By: #### CMP ####[facility] Zztsydvhiw583[address] [place], [place] [address]Dr. Yilan ChangAlbumin/Globulin [Mass ratio]1.1 {ratio}NormalThe [facility] Comment on above:Performed By: #### CMP ####[facility] Hznucpiyzt[address] [place] [address]Dr.Yilan ChangALP [Catalytic activity/Vol] 114 U/PWtcwtn65-007Dlg [facility] HospitalComment on above:Performed By: #### CMP ####[facility] Izdltinnun[address] [place] [address]Dr. Yilan ChangALT [Catalytic activity/Vol]20 U/FAyywmz01-44Pmr [facility] Comment on above:Performed By: #### CMP ####[facility] Rhfatecpdx972[address] [place], [place] [address]Dr.Yilan ChangAnion gap [Moles/Vol]14.7 mmol/LNormalThe [facility] HospitalComment on above:Performed By: #### CMP ####[facility] Xomgvwfqpl7519[address] [place], [place] [address]Dr. Yilan ChangAST [Catalytic activity/Vol]22 U/KZcyogd64-16Gqp [facility] Comment on above:Performed By: #### CMP ####[facility] Bmrtnhkxtq22[address] [place], [place] [address]Dr.Yilan ChangBilirubin [Mass/Vol]0.3 mg/dL Normal0.2-1.0The [facility] HospitalComment on above:Performed By: #### CMP ####[facility] Wxgimmwiui0537[address] [place], [place] [address]Dr. Yilan ChangCalcium [Mass/Vol]8.8 mg/dLNormal8.5-10.1The [facility] HospitalComment on above:Performed By: #### CMP ####[facility] Mqwchsybcu[address] [place], [place] [address]Dr.Yilan ChangChloride [Moles/Vol]97 mmol/LCritically obn47-219Uya [facility] HospitalComment on above:Performed By: #### CMP ####[facility] Zexqhjamzn554[address] [place], [place] [address]Dr. Yilan ChangCO2 [Moles/Vol]24.5 mmol/WZzpxft70.0-32.0The [facility] HospitalComment on above:Performed By: #### CMP ####[facility] Kpbpkdlchm645[address] [place], [place] [address]Dr.Airam ChangCreatinine [Mass/Vol]1.28 mg/dL Critically high0.55-1.02The [facility] HospitalComment on above:Performed By: #### CMP ####[facility] Osxcthfnld9724[address] [place], [place] [address]Dr.Yilan ChangEGFR-AF GCMGJATF25 mL/min/1.14v0Wnfkcmkwoc low>=60The [facility] HospitalComment on above:Performed By: #### CMP ####[facility] Fdxmlyaall139[address] [place], [place] [address]Dr.Yilan ChangEGFR-NON AF YWZWUING76 mL/min/1.24m4Icwjrgbpeg low>=60The [facility] HospitalComment on above: Performed By: #### CMP ####[facility] Rskqliuagn793[address] [place], [place] [address]Dr.Airam ChangGlobulin (S) [Mass/Vol]3.1 g/dLNormalThe [facility] HospitalComment on above:Performed By: #### CMP ####[facility] Wwefmuxhit627[address] [place], [place] [address]Dr.Selenalan ChangGlucose [Mass/Vol]87 mg/nASnpwkr72-541Xsx [facility] HospitalComment on above:Performed By: #### CMP ####[facility] Ecssxqsqlc002[address] [place], [place] [address]Dr.Selenalan ChangPotassium [Moles/Vol]4.2 mmol/LNormal3.5-5.1The [facility] HospitalComment on above:Performed By: #### CMP ####[facility] Oawfvhddja612[address] [place], [place] [address]Dr.Yilan ChangProtein [Mass/Vol]6.4 g/dLNormal6.4-8.2The [facility] HospitalComment on above:Performed By: #### CMP ####[facility] Ludtndxxcc5489[address] [place], [place] [address]Dr.Airam ChangSodium [Moles/Vol]132 mmol/LCritically dtd310-475Xpc [facility] HospitalComment on above:Performed By: #### CMP ####[facility] Giacrchyxe264[address] [place], [place] [address]Dr.Airam ChangUrea nitrogen [Mass/Vol]36.0 mg/dLCritically high7.0-18.0The [facility] HospitalComment on above:Performed By: #### CMP ####[facility] Whprgavrtp1027[address] [place], [place] [address]Dr.Airam ChangUrea nitrogen/Creatinine [Mass ratio] 28.1 mg/mgNoCleveland Clinic Fairview HospitalComment on above:Performed By: #### CMP ####[facility] Cotgehlmon916[address] [place], [place] [address]Dr. Airam ChangXR DEXA BONE DENSITYon 09-23-0211WQ DEXA BONE DENSITYNoCleveland Clinic Fairview HospitalOSMOLALITYon 09-79-6427Csvcftaesc [Osmolality]277 mosm/kgNormal 275-295The [facility] HospitalComment on above:Performed By: #### OSMO ####[facility] Gzhzksvtfq[address] [place], [place] [address]Dr. Airam TripathiCBC AUTO DIFFon 83-65-5485KQKW #0.0 103/ulNormal0.0-0.1[facility] SystemComment on above:Performed By: #### CBC ####[facility] Ktsihxwkiz9618[address] [place], [place] [address]Dr.Airam ChangBasophils/100 WBC (Bld)0.5 %Normal0.2-2.0The [facility] HospitalComment on above:Performed By: #### CBC ####[facility] Jojovdemiy124[address] [place], [place] [address]Dr.Selenalan ChangEO #0.2 103/ulNormal0.0-0.7The [facility] HospitalComment on above:Performed By: #### CBC ####[facility] Jbuqnwemin9099[address] [place], [place] [address]Dr.Yilan ChangEosinophils/100 WBC (Bld)3.1 %Normal 0.9-7.0The [facility] HospitalComment on above:Performed By: #### CBC ####[facility] Qxdjxpzyhk285[address] [place], [place] [address]Dr.Airam Tripathi Erythrocyte distribution width (RBC) [Ratio]12.5 %Axkfca03.0-15.0The [facility] HospitalComment on above:Performed By: #### CBC ####[facility] Qwxbxyvshe4537[address] [place], [place] [address]Dr.Airam TripathiHematocrit (Bld) [Volume fraction]34.4 %Critically low36.0-48.0The [facility] HospitalComment on above:Performed By: #### CBC ####[facility] Cwsjmthdjk39260[address] [place], [place] [address]Dr.Airam ChangHemoglobin (Bld) [Mass/Vol]11.0 g/dL Critically low12.0-16.0The [facility] HospitalComment on above:Performed By: #### CBC ####[facility] Pwapooeqqo05[address] [place], [place] [address]Dr. Airam ChangIG #0.03 10e3/ulNormal0.00-0.03The [facility] HospitalComment on above: Performed By: #### CBC ####[facility] Syfjgdxdep905[address] [place], [place] [address]Dr.Airam ChangIG %0.5 %Normal0.0-0.5The [facility] HospitalComment on above:Performed By: #### CBC ####[facility] Sfttigffns1099[address] [place], [place] [address]Dr.Airam ChangLYMPH #1.6 103/ulNormal1.2-3.8The [facility] HospitalComment on above:Performed By: #### CBC ####[facility] Qqjdqomgqh150[address] [place], [place] [address]Dr. Airam ChangLymphocytes/100 WBC (Bld)28.0 %Jnpcwp74.5-60.0The [facility] Comment on above:Performed By: #### CBC ####[facility] Un[address]diu[address] [place] [address]Dr.Airam TripathiMANUAL DIFF REQNONormalThe [facility] HospitalComment on above:Performed By: #### CBC ####[facility] Awocvjnzrw[address] [place] [address]Dr.Airam TripathiH (RBC) [Entitic mass]30.1 hpThxvex28.7-34.0The [place] HospitalComment on above: Performed By: #### CBC ####[facility] Hvmpzjvvkj332[address] [place], [place] [address]Dr.Airam TripathiMCHC (RBC) [Mass/Vol]32.0 g/dLNormal 29.9-35.2The [facility] HospitalComment on above:Performed By: #### CBC ####[facility] Ljvyrmqwgg595[address] [place], [place] [address]Dr. Airam TripathiV (RBC) [Entitic vol]94.0 eTTgykeu06.0-99.0The [facility] Comment on above:Performed By: #### CBC ####[facility] Nnypowrbzd[address] [place], [place] [address]Dr.Airam TripathiMONO #0.4 103/ulNormal0.3-0.[address] [facility] HospitalComment on above:Performed By: #### CBC ####[facility] Qskahcctry478[address] [place], [place] [address]Dr.Airam Tripathi Monocytes/100 WBC (Bld)7.5 %Normal1.7-12.0The [facility] HospitalComment on above: Performed By: #### CBC ####[facility] Hcbjyccvyq478[address] [place], [place] [address]Dr.Airam DeuceNEUT #3.5 103/ulNormal1.4-6.5The [facility] HospitalComment on above:Performed By: #### CBC ####[facility] Trjgbbywxe808[address] [place], [place] [address]Dr.Airam DeuceNeutrophils/100 WBC (Bld)60.4 %Moiftt71.0-75.0The [facility] HospitalComment on above:Performed By: #### CBC ####[facility] Xjgcclkate[address] [place] [address]Dr.Airam DeucePlatelet mean volume (Bld) [Entitic vol]10.0 fLNormal9.5-13.[address] [facility] HospitalComment on above:Performed By: #### CBC ####[facility] Yfhwgptpyf[address] [place] [address]Dr.Airam UadcdWLZ342 103/boNtkbdk378-558Vfz [facility] HospitalComment on above:Performed By: #### CBC ####[facility] Wejtlqqdxd154[address] [place], [place] [address]Dr. Airam TripathiRBC3.66 106/ulCritically low4.20-5.40The [facility] HospitalComment on above:Performed By: #### CBC ####[facility] Ospjemiouh784[address] [place], [place] [address]Dr.Airam TripathiWBC5.7 103/ulNormal4.0-11.0The [facility] HospitalComment on above:Performed By: #### CBC ####[facility] Tjriggzxfo53[address] [place], [place] [address]Dr.Selenaniel TripathiPROF 14(COMP METB)on 42-23-1571Aweogyp [Mass/Vol]3.3 g/dLCritically low3.4-5.0The [facility] HospitalComment on above:Performed By: #### CMP ####[facility] Ecgzpdjxyk896[address] [place], [place] [address]Dr.Airam Tripathi Albumin/Globulin [Mass ratio]1.0 {ratio}NormalThe [facility] HospitalComment on above:Performed By: #### CMP ####[facility] Buidlotizn240[address] [place], [place] [address]Dr.Airam TripathiALP [Catalytic activity/Vol]138 U/L Critically wdnb64-215Dlr [facility] HospitalComment on above:Performed By: #### CMP ####[facility] Qgdvgwagel7[address] [place], [place] [address]Dr. Airam TripathiALT [Catalytic activity/Vol]25 U/WIijfor80-99Gpo [facility] Comment on above:Performed By: #### CMP ####[facility] Atymvjpqre[address] [place] [id number].Yilan ChangAnion gap [Moles/Vol]14.0 mmol/LNormalThe [facility] HospitalComment on above:Performed By: #### CMP ####[facility] Cypcechgih[address] [place] [id number]. Yilan ChangAST [Catalytic activity/Vol]19 U/ZOcbpdj24-48Eyb [facility] Comment on above:Performed By: #### CMP ####[facility] Eovavcbaab[address] [place] [address]Dr.Yilan ChangBilirubin [Mass/Vol]0.3 mg/dL Normal0.2-1.0The [facility] HospitalComment on above:Performed By: #### CMP ####[facility] Fkzjskjpqg807[address] [place], [place] [address]Dr. Yilan ChangCalcium [Mass/Vol]8.7 mg/dLNormal8.5-10.1The [facility] HospitalComment on above:Performed By: #### CMP ####[facility] Uasiaznwrj82[address] [place], [place] [address]Dr.Yilan ChangChloride [Moles/Vol]99 mmol/LNormal 98-107The [facility] HospitalComment on above:Performed By: #### CMP ####[facility] Vsbpfrtnvg[address] [place] [address]Dr.Yilan ChangCO2 [Moles/Vol]25.4 mmol/IEulndq32.0-32.0The [facility] HospitalComment on above: Performed By: #### CMP ####[facility] Cgormhttsj[address] [place], [place] [address]Dr.Yilan ChangCreatinine [Mass/Vol]1.22 mg/dL Critically high0.55-1.02The [facility] HospitalComment on above:Performed By: #### CMP ####[facility] Thvdmzlbzs113[address] [place], [place] [address]Dr.Yilan ChangEGFR-AF MTHDDHOW99 mL/min/1.03g4Wtimujwtiy low>=60The [facility] HospitalComment on above:Performed By: #### CMP ####[facility] Xsiuswskkw[address] [place], [place] [address]Dr.Selenalan ChangEGFR-NON AF XIQZRBRU16 mL/min/1.72e8Evhqrggvyr low>=60The [facility] HospitalComment on above: Performed By: #### CMP ####[facility] Oyfojdtrzs7[address] [place], [place] [address]Dr.Airam ChangGlobulin (S) [Mass/Vol]3.2 g/dLNormalThe [facility] HospitalComment on above:Performed By: #### CMP ####[facility] Dlodanhodq24[address] [place], [place] [address]Dr.Airam ChangGlucose [Mass/Vol]111 mg/dLCritically kort83-836Dvs [facility] HospitalComment on above: Performed By: #### CMP ####[facility] Fzlkzzuzuh[address] [place], [place] [address]Dr.Airam ChangPotassium [Moles/Vol]4.4 mmol/LNormal 3.5-5.1The [facility] HospitalComment on above:Performed By: #### CMP ####[facility] Jmfrngysrs[address] [place], [place] [address]Dr.Selenaneil Tripathi Protein [Mass/Vol]6.5 g/dLNormal6.4-8.2The [facility] HospitalComment on above: Performed By: #### CMP ####[facility] Igxzmtcuek[address] [place], [place] [address]Dr.Selenaneil ChangSodium [Moles/Vol]134 mmol/LCritically bhp348-425Njr [facility] HospitalComment on above:Performed By: #### CMP ####[facility] Ufsaoldtbi[address] [place], [place] [address]Dr. Selenalan ChangUrea nitrogen [Mass/Vol]27.0 mg/dLCritically high7.0-18.0The [facility] HospitalComment on above:Performed By: #### CMP ####[facility] Yvectbmoyz[address] [place], [place] [address]Dr.Yilan ChangUrea nitrogen/Creatinine [Mass ratio]22.1 mg/mgNoCleveland Clinic Fairview HospitalComment on above:Performed By: #### CMP ####[facility] Atscohkuzy[address] [place], [place] [address]YjBroderick TripathiCT CERVICAL SPINE WITHOUT CONTRASTon [id number] CERVICAL SPINE WITHOUT CONTRASTUnElyria Memorial Hospital Department of Radiology [address] [place] [address] Patient Name: MABEL MOSER : 1960 Sex: F Age: Race: White Pt. Location: 29 Patient Status: D Ordered Date: 08/17/2021 10:00:00 AM Completed Date: 01/10/2022 10:24 AM Requesting Provider: ROBERT JOHNSTON Attending Provider: ROBERT JOHNSTON Report Copy To: YURI SANTANA Signs & Symptoms: M54.12 Radiculopathy, cervical region I10 History: [place] seeing Dr. Johnston after Comments: Exam: CT [...] achievable. Electronically signed: Ayleen Ny. Transcribed by: [email or web address], User Resident: Electronically Signed by: AYLEEN NY @ 01/12/2022 12:32 PMNormalThe [facility] CenterOSMOLALITYon 01-96-9761Ltfygxodhl [Osmolality]286 mosm/izNhllde173-312Ohz [facility] HospitalComment on above:Performed By: #### OSMO ####[facility] Mx[address] [place] [address]DrKianna TripathiCB AUTO DIFFon [id number] #0.0 103/ulNormal0.0-0.1The [facility] HospitalComment on above:Performed By: #### CBC ####[facility] Xbdtdiumdx[address] [place] [address]DrBroderick TripathiBasophils/100 WBC (Bld)0.3 %Normal0.2-2.0The [facility] HospitalComment on above:Performed By: #### CBC ####[facility] Lvslknfxel[address] [place] [address]DrBroderick ChangEO #0.2 103/ulNormal0.0-0.7The [facility] HospitalComment on above:Performed By: #### CBC ####[facility] Wzhtsthwqx[address] [place], [place] [address]Dr.Airam ChangEosinophils/100 WBC (Bld)4.1 %Normal 0.9-7.0The [facility] HospitalComment on above:Performed By: #### CBC ####[facility] Mzkknsywgo[address] [place], [place] [address]Dr.Airam Tripathi Erythrocyte distribution width (RBC) [Ratio]12.9 %Pnomir42.0-15.0The [facility] HospitalComment on above:Performed By: #### CBC ####[facility] Nkvxmaoyjp7[address] [place], [place] [address]Dr.Airam ChangHematocrit (Bld) [Volume fraction]34.2 %Critically low36.0-48.0The [facility] HospitalComment on above:Performed By: #### CBC ####[facility] Txydbongid[address] [place], [place] [address]Dr.Airam ChangHemoglobin (Bld) [Mass/Vol]10.6 g/dL Critically low12.0-16.0The [facility] HospitalComment on above:Performed By: #### CBC ####[facility] Vyoeuvoqll[address] [place], [place] [address]Dr. Airam ChangIG #0.03 10e3/ulNormal0.00-0.03The [facility] HospitalComment on above: Performed By: #### CBC ####[facility] Ttxzhhhhgk[address] [place], [place] [address]Dr.Airam ChangIG %0.5 %Normal0.0-0.5The [facility] HospitalComment on above:Performed By: #### CBC ####[facility] Ooybsjpvdd015[address] [place], [place] [address]Dr.Airam ChangLYMPH #1.1 103/ulCritically low1.2-3.8The [facility] HospitalComment on above:Performed By: #### CBC ####[facility] Yhizyobrjj5[address] [place], [place] [address]Dr.Airam TripathiLymphocytes/100 WBC (Bld)18.2 %Critically low20.5-60.0The [facility] HospitalComment on above:Performed By: #### CBC ####[facility] Jircinsgyw[address] [place] [address]Dr.Airam TripathiMANUAL DIFF REQ NONormalThe [facility] HospitalComment on above:Performed By: #### CBC ####[facility] Qbutdiosll01[address] [place], [place] [address]Dr. Airam TripathiH (RBC) [Entitic mass]29.6 kgFwellr04.7-34.0The [facility] Comment on above:Performed By: #### CBC ####[facility] Yrklzycgdx70[address] [place], [place] [address]Dr.Airam TripathiHC (RBC) [Mass/Vol]31.0 g/dL Ttyvpj59.9-35.2The [facility] HospitalComment on above:Performed By: #### CBC ####[facility] Mgpkqdtegb[address] [place], [place] [address]Dr. Airam TripathiV (RBC) [Entitic vol]95.5 mACixcnh48.0-99.0The [facility] Comment on above:Performed By: #### CBC ####[facility] Jjdhyibgnv[address] [place], [place] [address]Dr.Airam TripathiMONO #0.5 103/ulNormal0.3-0.[address] [facility] HospitalComment on above:Performed By: #### CBC ####[facility] Jbfrcbgkgq[address] [place], [place] [address]Dr.Airam Tripathi Monocytes/100 WBC (Bld)8.5 %Normal1.7-12.0The [facility] HospitalComment on above: Performed By: #### CBC ####[facility] Vjjzokondy308[address] [place], [place] [address]Dr.Airam TripathiNEUT #4.0 103/ulNormal1.4-6.5The [facility] HospitalComment on above:Performed By: #### CBC ####[facility] Aygeqghizq[address] [place] [address]Dr.Airam TripathiNeutrophils/100 WBC (Bld)68.4 %Ryhdbc47.0-75.0The [facility] HospitalComment on above:Performed By: #### CBC ####[facility] Sijngugntz68[address] [place], [place] [address]Dr.Airam TripathiPlatelet mean volume (Bld) [Entitic vol]10.1 fLNormal9.5-13.[address] [facility] HospitalComment on above:Performed By: #### CBC ####[facility] Pasulhiwvt9[address] [place], [place] [address]Dr.Airam ZwpntDZV721 103/grQdelfg213-949Akz [facility] HospitalComment on above:Performed By: #### CBC ####[facility] Guonltzyoe398[address] [place], [place] [address]Dr. Airam TripathiRBC3.58 106/ulCritically low4.20-5.40The [facility] HospitalComment on above:Performed By: #### CBC ####[facility] Ynytblqhhr55[address] [place], [place] [address]Dr.Airam TripathiWBC5.9 103/ulNormal4.0-11.0The [facility] HospitalComment on above:Performed By: #### CBC ####[facility] Fsncftayiw9[address] [place], [place] [address]Dr.Airam TripathiMG MAMM RT DIAG FUon [id number] MAMM RT DIAG FUNormalThe [facility] HospitalPROF 14(COMP METB)on 69-28-5910Hdjfqwr [Mass/Vol]3.1 g/dLCritically low3.4-5.0The [facility] Comment on above:Performed By: #### CMP ####[facility] Piiqdygfwu564[address] [place], [place] [address]Dr.Airam TripathiAlbumin/Globulin [Mass ratio] 1.0 {ratio}NormalThe [facility] HospitalComment on above:Performed By: #### CMP ####[facility] Qybksjuknm99[address] [place], [place] [address]Dr. Yilan ChangALP [Catalytic activity/Vol]143 U/LCritically fuhk65-098Jni [facility] HospitalComment on above:Performed By: #### CMP ####[facility] Bvdkulcvwz834[address] [place], [place] [address]Dr.Yineil ChangALT [Catalytic activity/Vol]23 U/XSwnpwi53-29Xcl [facility] HospitalComment on above:Performed By: #### CMP ####[facility] Fhsfhlndmq2925[address] [place], [place] [address]Dr.Airam ChangAnion gap [Moles/Vol]13.2 mmol/LNormalThe [facility] Comment on above:Performed By: #### CMP ####[facility] Ckzdjedqvg894[address] [place], [place] [address]Dr.Yineil ChangAST [Catalytic activity/Vol]20 U/SJrfjoj21-05Ayl [facility] HospitalComment on above:Performed By: #### CMP ####[facility] Igsoqmyltz862[address] [place], [place] [address]Dr. Airam ChangBilirubin [Mass/Vol]0.3 mg/dLNormal0.2-1.0The [facility] Comment on above:Performed By: #### CMP ####[facility] Vigpizeicj48260[address] [place], [place] [address]Dr.Yineil ChangCalcium [Mass/Vol]8.2 mg/dL Critically low8.5-10.1The [facility] HospitalComment on above:Performed By: #### CMP ####[facility] Orntiznxrs120[address] [place], [place] [address]Dr. Yineil ChangChloride [Moles/Vol]100 mmol/RMbttiu67-172Irf [facility] Comment on above:Performed By: #### CMP ####[facility] Greepkujne026[address] [place], [place] [address]Dr.Yilan ChangCO2 [Moles/Vol]26.0 mmol/L Tyxodh45.0-32.0The [facility] HospitalComment on above:Performed By: #### CMP ####[facility] Nkyervmdvl35[address] [place], [place] [address]Dr. Yilan ChangCreatinine [Mass/Vol]1.52 mg/dLCritically high0.55-1.02The [facility] HospitalComment on above:Performed By: #### CMP ####[facility] Hjnamdmcdf67[address] [place], [place] [address]Dr.Airam ChangEGFR-AF QXQIUKFM81 mL/min/1.54m5Isebodtppf low>=60The [facility] HospitalComment on above: Performed By: #### CMP ####[facility] Kupstvqxed101[address] [place], [place] [address]Dr.Airam ChangEGFR-NON AF UHBTIYAF99 mL/min/1.73m2 Critically low>=60The [facility] HospitalComment on above:Performed By: #### CMP ####[facility] Xqnejsmced486[address] [place], [place] [address]Dr. Airam TripathiGlobulin (S) [Mass/Vol]3.2 g/dLNormalThOhioHealth Doctors HospitalComment on above:Performed By: #### CMP ####[facility] Ouluupygkn189[address] [place], [place] [address]Dr.Airam TripathiGlucose [Mass/Vol]84 mg/mDLtmvlf10-[address] [facility] HospitalComment on above:Performed By: #### CMP ####[facility] Yjglczddck290[address] [place], [place] [address]Dr.Airam Tripathi Potassium [Moles/Vol]4.2 mmol/LNormal3.5-5.1[facility] SystemComment on above:Performed By: #### CMP ####[facility] Cuvzokonhd196[address] [place], [place] [address]Dr.Airam TripathiProtein [Mass/Vol]6.3 g/dLCritically low 6.4-8.2[facility] SystemComment on above:Performed By: #### CMP ####[facility] Symlwvvjwd20[address] [place], [place] [address]Dr.Airam Tripathi Sodium [Moles/Vol]135 mmol/LCritically sbs402-356Ljw [facility] HospitalComment on above:Performed By: #### CMP ####[facility] Dpdkwpweom68[address] [place], [place] [address]Dr.Yilan ChangUrea nitrogen [Mass/Vol]36.0 mg/dL Critically high7.0-18.0The [facility] HospitalComment on above:Performed By: #### CMP ####[facility] Lxnpblwrre320[address] [place], [place] [address]Dr. Airam ChangUrea nitrogen/Creatinine [Mass ratio]23.7 mg/mgNoCleveland Clinic Fairview HospitalComment on above:Performed By: #### CMP ####[facility] Rbzeubgfjk9225[address] [place], [place] [address]Dr.Selenalan ChangUS BREAST RIGHT LIMITEDon [id number] BREAST RIGHT LIMITEDNoMetroHealth Main Campus Medical Center HospitalOSMOLALITY on 05-92-0856Vijtmgwppw [Osmolality]280 mosm/mzFqscgf384-119Pir [facility] HospitalComment on above:Performed By: #### OSMO ####[facility] Xjkefcnidm3317[address] [place], [place] [address]Dr. Airam DeuceCBC AUTO DIFF on [id number] #0.0 103/ulNormal0.0-0.1The [facility] HospitalComment on above: Performed By: #### CBC ####[facility] Ascdwqsapd813[address] [place], [place] [address]Dr.Airam ChangBasophils/100 WBC (Bld)0.5 %Normal 0.2-2.0The [facility] HospitalComment on above:Performed By: #### CBC ####[facility] Pdjpfgyqqa039[address] [place], [place] [address]Dr.Selenalan ChangEO # 0.3 103/ulNormal0.0-0.7The [facility] HospitalComment on above:Performed By: #### CBC ####[facility] Hewwvzkgqp139[address] [place], [place] [address]Dr. Airam ChangEosinophils/100 WBC (Bld)3.5 %Normal0.9-7.0The [facility] Comment on above:Performed By: #### CBC ####[facility] Pgfhynvqjl358[address] [place], [place] [address]Dr.Airam ChangErythrocyte distribution width (RBC) [Ratio]13.0 %Qgevmy98.0-15.0The [facility] HospitalComment on above: Performed By: #### CBC ####[facility] Wknhdmroxy8289[address] [place], [place] [address]Dr.Airam ChangHematocrit (Bld) [Volume fraction]34.2 % Critically low36.0-48.0The [facility] HospitalComment on above:Performed By: #### CBC ####[facility] Czyceaemsj576[address] [place], [place] [address]Dr. Airam ChangHemoglobin (Bld) [Mass/Vol]10.4 g/dLCritically low12.0-16.0The [facility] HospitalComment on above:Performed By: #### CBC ####[facility] Tsuprixzrj46[address] [place], [place] [address]Dr.Yineil ChangIG #0.04 10e3/ulCritically high0.00-0.03The [facility] HospitalComment on above:Performed By: #### CBC ####[facility] Ddtviicdfr[address] [place], [place] [address]Dr.Airam ChangIG %0.5 %Normal0.0-0.5The [facility] HospitalComment on above: Performed By: #### CBC ####[facility] Jcbyylseqv3639[address] [place], [place] [address]Dr.Airam ChangLYMPH #2.1 103/ulNormal1.2-3.8The [facility] HospitalComment on above:Performed By: #### CBC ####[facility] Zjykhjhopq639[address] [place], [place] [address]Dr.Airam TripathiLymphocytes/100 WBC (Bld)23.5 %Atqbwp73.5-60.0The [facility] HospitalComment on above:Performed By: #### CBC ####[facility] Qaqjlxfofs566[address] [place], [place] [address]Dr.Airam ChangMANUAL DIFF REQNONormalThe [facility] HospitalComment on above:Performed By: #### CBC ####[facility] Jifooectqh366[address] [place], [place] [address]Dr.Airam TripathiH (RBC) [Entitic mass]29.4 pgNormal 26.7-34.0The [facility] HospitalComment on above:Performed By: #### CBC ####[facility] Qyjluwwmrf[address] [place] [address]Dr. Airam TripathiHC (RBC) [Mass/Vol]30.4 g/xUZvkzev70.9-35.2The [facility] Comment on above:Performed By: #### CBC ####[facility] Pgeqfwjjpf68[address] [place] [address]Dr.Airam TripathiV (RBC) [Entitic vol]96.6 fL Zqgsqb59.0-99.0The [facility] HospitalComment on above:Performed By: #### CBC ####[facility] Cvmtcwrwtk38350[address] [place], [place] [address]Dr. Airam TripathiMONO #0.6 103/ulNormal0.3-0.8The [facility] HospitalComment on above: Performed By: #### CBC ####[facility] Rhbfgzgcuj4218[address] [place], [place] [address]Dr.Airam TripathiMonocytes/100 WBC (Bld)6.4 %Normal 1.7-12.0The [facility] HospitalComment on above:Performed By: #### CBC ####[facility] Bwgzpfcfwv35[address] [place] [address]Dr. Airam TripathiNEUT #5.8 103/ulNormal1.4-6.5The [facility] HospitalComment on above: Performed By: #### CBC ####[facility] Buctkznuwu829[address] [place], [place] [address]Dr.Airam ChangNeutrophils/100 WBC (Bld)65.6 %Normal 43.0-75.0The [facility] HospitalComment on above:Performed By: #### CBC ####[facility] Bdxiltsbce680[address] [place], [place] [address]Dr. Airam TripathiPlatelet mean volume (Bld) [Entitic vol]9.2 fLCritically low9.5-13.[address] [facility] HospitalComment on above:Performed By: #### CBC ####[facility] Tpmhhznyfk54[address] [place] [address]Dr.Airam TripathiPLT338 103/eiOyojsc166-772Uhh [facility] HospitalComment on above:Performed By: #### CBC ####[facility] Hobtgnojvj9[address] [place] [address]Dr. Airam ChangRBC3.54 106/ulCritically low4.20-5.40The [facility] HospitalComment on above:Performed By: #### CBC ####[facility] Wpgvzeqcmv11[address] [place] [address]Dr.Airam ChangWBC8.9 103/ulNormal4.0-11.0The [facility] HospitalComment on above:Performed By: #### CBC ####[facility] Ismnhhwnju36[address] [place], [place] [address]Dr.Airam TripathiMG MAMM SCREEN 3D GUMARO CADon 41-87-8223PO MAMM SCREEN 3D GUMARO CADNormKettering Health Hamiltone [place] HospitalPROF 14(COMP METB)on 39-06-8545Gsxrcvw [Mass/Vol]3.6 g/dLNormal3.4-5.0The [facility] HospitalComment on above:Performed By: #### CMP ####[facility] Enkjquwwhh632[address] [place], [place] [address]Dr.Airam Tripathi Albumin/Globulin [Mass ratio]1.1 {ratio}NormalThe [facility] HospitalComment on above:Performed By: #### CMP ####[facility] Fwphmacqvs25[address] [place] [address]Dr.Airam TripathiALP [Catalytic activity/Vol]117 U/L Critically dqfe44-574Sbc [facility] HospitalComment on above:Performed By: #### CMP ####[facility] Mvbvnguefm0625[address] [place], [place] [address]Dr. Airam TripathiALT [Catalytic activity/Vol]26 U/NDslyzp27-95Ena [facility] Comment on above:Performed By: #### CMP ####[facility] Bevyaateme223[address] [place], [place] [address]Dr.Yilan ChangAnion gap [Moles/Vol]11.2 mmol/LNormalThe [facility] HospitalComment on above:Performed By: #### CMP ####[facility] Mydpcqzuyn1716[address] [place], [place] [address]Dr. Yilan ChangAST [Catalytic activity/Vol]29 U/GFxdcbk69-56Rau [facility] Comment on above:Performed By: #### CMP ####[facility] Rjvtemkmwe3325[address] [place], [place] [address]Dr.Yineil ChangBilirubin [Mass/Vol]0.3 mg/dL Normal0.2-1.0The [facility] HospitalComment on above:Performed By: #### CMP ####[facility] Beoahwijfl4416[address] [place], [place] [address]Dr. Yilan ChangCalcium [Mass/Vol]9.1 mg/dLNormal8.5-10.1The [facility] HospitalComment on above:Performed By: #### CMP ####[facility] Txkcacqywy411[address] [place], [place] [address]Dr.Airam ChangChloride [Moles/Vol]101 mmol/LNormal 98-107The [facility] HospitalComment on above:Performed By: #### CMP ####[facility] Qimgocitbo2713[address] [place], [place] [address]Dr.Yineil ChangCO2 [Moles/Vol]26.8 mmol/FDbqaii00.0-32.0The [facility] HospitalComment on above: Performed By: #### CMP ####[facility] Btejytrnaq8112[address] [place], [place] [address]Dr.Selenalan ChangCreatinine [Mass/Vol]1.56 mg/dL Critically high0.55-1.02The [facility] HospitalComment on above:Performed By: #### CMP ####[facility] Lfdkccvrhv039[address] [place], [place] [address]Dr.Yilan ChangEGFR-AF IBUHPJWP03 mL/min/1.98u2Xruejbphaj low>=60The [facility] HospitalComment on above:Performed By: #### CMP ####[facility] Uqwncyjctj719[address] [place], [place] [address]Dr.Yilan ChangEGFR-NON AF ZQPHGLVH48 mL/min/1.46l5Aldxehsyol low>=60The [facility] HospitalComment on above: Performed By: #### CMP ####[facility] Rucwbvccxm[address] [place], [place] [address]Dr.Yilan ChangGlobulin (S) [Mass/Vol]3.3 g/dLNormalThe [facility] HospitalComment on above:Performed By: #### CMP ####[facility] Wdiszvzivk499[address] [place], [place] [address]Dr.Yilan ChangGlucose [Mass/Vol]84 mg/yFSbmshe39-037Zdz [facility] HospitalComment on above:Performed By: #### CMP ####[facility] Pykuegacgt185[address] [place], [place] [address]Dr.Yilan ChangPotassium [Moles/Vol]5.0 mmol/LNormal3.5-5.1The [facility] HospitalComment on above:Performed By: #### CMP ####[facility] Fqeklhviki112[address] [place], [place] [address]Dr.Yilan ChangProtein [Mass/Vol]6.9 g/dLNormal6.4-8.2The [facility] HospitalComment on above:Performed By: #### CMP ####[facility] Pvefnowsgm143[address] [place], [place] [address]Dr.Yilan ChangSodium [Moles/Vol]134 mmol/LCritically zcb678-997Eqk [facility] HospitalComment on above:Performed By: #### CMP ####[facility] Kaqfomprnd204[address] [place], [place] [address]Dr.Yilan ChangUrea nitrogen [Mass/Vol]28.0 mg/dLCritically high7.0-18.0The [facility] HospitalComment on above:Performed By: #### CMP ####[facility] Bqlgckvzqn286[address] [place], [place] [address]Dr.Yilan ChangUrea nitrogen/Creatinine [Mass ratio] 17.9 mg/mgNormalThe [facility] HospitalComment on above:Performed By: #### CMP ####[facility] Vlhbcedciq65[address] [place] [address]Dr. Airam DeuceOSMOLALITYon 87-48-2262Ncnaeuiuai [Osmolality]287 mosm/kgNormal 275-295The [facility] on above:Performed By: #### OSMO ####[facility] Gbflkaixff12[address] [place], [place] [address]Dr. Airam TripathiCBC AUTO DIFFon 00-83-0170SJRS #0.0 103/ulNormal0.0-0.1The [facility] HospitalComment on above:Performed By: #### CBC ####[facility] Damlovoyzr656[address] [place], [place] [address]Dr.Airam TripathiBasophils/100 WBC (Bld)0.5 %Normal0.2-2.0The [facility] on above:Performed By: #### CBC ####[facility] Pigbzxbdep386[address] [place], [place] [address]Dr.Airam ChangEO #0.4 103/ulNormal0.0-0.7The [facility] on above:Performed By: #### CBC ####[facility] Cpikgzezzu99360[address] [place], [place] [address]Dr.Airam ChangEosinophils/100 WBC (Bld)6.4 %Normal 0.9-7.0The [facility] on above:Performed By: #### CBC ####[facility] Goscwqlxkh578[address] [place], [place] [address]Dr.Airam Tripathi Erythrocyte distribution width (RBC) [Ratio]13.2 %Geyusq34.0-15.0The [facility] on above:Performed By: #### CBC ####[facility] Rizuhuarfl997[address] [place], [place] [address]Dr.Airam TripathiHematocrit (Bld) [Volume fraction]32.2 %Critically low36.0-48.0The [facility] HospitalComment on above:Performed By: #### CBC ####[facility] Cjuekbmtap4314[address] [place], [place] [address]Dr.Airam TripathiHemoglobin (Bld) [Mass/Vol]10.1 g/dL Critically low12.0-16.0The [facility] HospitalComment on above:Performed By: #### CBC ####[facility] Mhihmpykor[address] [place], [place] [address]DrKianna TripathiIG #0.03 10e3/ulNormal0.00-0.03The [facility] HospitalComment on above: Performed By: #### CBC ####[facility] Fqdikcpxdy59[address] [place], [place] [address]DrBroderick Tripathi %0.5 %Normal0.0-0.5The [facility] HospitalComment on above:Performed By: #### CBC ####[facility] Hkprjonrgs20[address] [place], [place] [address]DrBroderick TripathiFORT [facility] #1.3 103/ulNormal1.2-3.8The [facility] HospitalComment on above:Performed By: #### CBC ####[facility] Yzwphnvkzv773[address] [place], [place] [address]Dr. Airam TripathiStrong Memorial Hospitalhocytes/100 WBC (Bld)20.5 %Thzrbu21.5-60.0The [facility] Comment on above:Performed By: #### CBC ####[facility] Gzqiqddczx914[address] [place], [place] [address]Dr.Airam TripathiSKWENTNAUAL DIFF REQNONormalThe [facility] HospitalComment on above:Performed By: #### CBC ####[facility] Tcyjawdfvz[address] [place], [place] [address]Dr.Airam TripathiKINGS [facility] (RBC) [Entitic mass]30.1 xaFaudag08.7-34.0The [facility] HospitalComment on above: Performed By: #### CBC ####[facility] [facility] [address] [place], [place] [address]DrBroderick TripathiNASSAU [facility] (RBC) [Mass/Vol]31.4 g/dLNormal 29.9-35.2The [facility] HospitalComment on above:Performed By: #### CBC ####[facility] Jjtxokfhuu[address] [place], [place] [address]Dr. Airam TripathiMCV (RBC) [Entitic vol]95.8 pXQgycus14.0-99.0The [facility] Comment on above:Performed By: #### CBC ####[facility] Gznrwchfxu[address] [place], [place] [address]Dr.Airam TripathiMONO #0.5 103/ulNormal0.3-0.8 [facility] HospitalComment on above:Performed By: #### CBC ####[facility] Aoldwtirew[address] [place], [place] [address]Dr.Airam Tripathi Monocytes/100 WBC (Bld)7.4 %Normal1.7-12.0The [facility] HospitalComment on above: Performed By: #### CBC ####[facility] Ldjkhlvapu[address] [place], [place] [address]Dr.Airam TripathiNEUT #3.9 103/ulNormal1.4-6.5The [facility] HospitalComment on above:Performed By: #### CBC ####[facility] Lldnbhfxzd348[address] [place], [place] [address]Dr.Airam TripathiNeutrophils/100 WBC (Bld)64.7 %Ewiwpr17.0-75.0The [facility] HospitalComment on above:Performed By: #### CBC ####[facility] Sggvgdyjgd[address] [place], [place] [address]Dr.Airam TripathiPlatelet mean volume (Bld) [Entitic vol]9.2 fLCritically low 9.5-13.5The [facility] HospitalComment on above:Performed By: #### CBC ####[facility] Eyclrgatbe[address] [place], [place] [address]Dr. Airam AofzrGOC818 103/rwHoltcs659-759Mmv [facility] HospitalComment on above: Performed By: #### CBC ####[facility] Hnljuncliz61[address] [place], [place] [address]Dr.Airam TripathiRBC3.36 106/ulCritically low4.20-5.40The [facility] HospitalComment on above:Performed By: #### CBC ####[facility] Rkpeoablhp[address] [place] [address]Dr.Airam ChangWBC6.1 103/ul Normal4.0-11.0The [facility] HospitalComment on above:Performed By: #### CBC ####[facility] Tglljpfqjs4879[address] [place], [place] [address]Dr. Yilan ChangPROF 14(COMP METB)on 39-54-3698Secusth [Mass/Vol]3.2 g/dLCritically low3.4-5.0The [facility] HospitalComment on above:Performed By: #### CMP ####[facility] Exbvosopgq944[address] [place], [place] [address]Dr. Yilan ChangAlbumin/Globulin [Mass ratio]1.1 {ratio}NormalThe [facility] Comment on above:Performed By: #### CMP ####[facility] Xaytmdrdyr164[address] [place], [place] [address]Dr.Selenalan ChangALP [Catalytic activity/Vol] 123 U/LCritically qwse93-122Vop [facility] HospitalComment on above:Performed By: #### CMP ####[facility] Hwpdydxlim377[address] [place], [place] [address]Dr.Yilan ChangALT [Catalytic activity/Vol]26 U/UCbsudm97-68Qmy [facility] HospitalComment on above:Performed By: #### CMP ####[facility] Dccnjkxcnu75360[address] [place], [place] [address]Dr.Selenalan ChangAnion gap [Moles/Vol]14.5 mmol/LNormalThe [facility] HospitalComment on above:Performed By: #### CMP ####[facility] Fuomywveaf932[address] [place], [place] [address]Dr.Yilan ChangAST [Catalytic activity/Vol]23 U/VOxuosf40-30Agd [facility] HospitalComment on above:Performed By: #### CMP ####[facility] Howbvcmlmh253[address] [place], [place] [address]Dr.Yilan ChangBilirubin [Mass/Vol]0.3 mg/dLNormal0.2-1.0The [facility] HospitalComment on above:Performed By: #### CMP ####[facility] Upckqdcykw[address] [place] [address]Dr.Yilan ChangCalcium [Mass/Vol]8.2 mg/dLCritically low8.5-10.1The [facility] HospitalComment on above:Performed By: #### CMP ####[facility] Alugzoddxs22[address] [place] [address]Dr.Yilan ChangChloride [Moles/Vol]102 mmol/KRgfsta24-468Ota [facility] HospitalComment on above:Performed By: #### CMP ####[facility] Imzejxygug60360[address] [place], [place] [address]Dr.Yilan ChangCO2 [Moles/Vol]23.2 mmol/DPlosfg59.0-32.0The [facility] HospitalCommclaren flint on above:Performed By: #### CMP ####[facility] Wwpekihjwk725[address] [place], [place] [address]Dr.Yilan ChangCreatinine [Mass/Vol]1.98 mg/dLCritically high0.55-1.02The [facility] HospitalComment on above:Performed By: #### CMP ####[facility] Dvmhtmmugd658[address] [place], [place] [address]Dr.Yilan ChangEGFR-AF FHVRLCJC56 mL/min/1.73m2 Critically low>=60The [facility] HospitalCommclaren flint on above:Performed By: #### CMP ####[facility] Vhtribjzba9813[address] [place], [place] [address]Dr. Yilan ChangEGFR-NON AF MIDDHDLB94 mL/min/1.45a3Funuzfyxxu low>=60The [facility] HospitalComment on above:Performed By: #### CMP ####[facility] Kenhafymjr6459[address] [place], [place] [address]Dr.Yilan ChangGlobulin (S) [Mass/Vol]3.0 g/dLNormalThe [facility] HospitalCommclaren flint on above:Performed By: #### CMP ####[facility] Gtoddsamdx5149[address] [place], [place] [address]Dr.Yilan ChangGlucose [Mass/Vol]131 mg/dLCritically pwwe99-981Wdt [facility] HospitalComment on above:Performed By: #### CMP ####[facility] Rgptwnaxwg[address] [place], [place] [address]Dr.Airam TripathiPotassium [Moles/Vol]4.7 mmol/LNormal3.5-5.1The [facility] HospitalComment on above: Performed By: #### CMP ####[facility] Lxzfkwfkxh420[address] [place], [place] [address]Dr.Airam TripathiProtein [Mass/Vol]6.2 g/dLCritically low 6.4-8.2The [facility] HospitalComment on above:Performed By: #### CMP ####[facility] Kztmmxknwb974[address] [place], [place] [address]Dr.Airam Tripathi Sodium [Moles/Vol]135 mmol/LCritically mmr995-755Pzj [facility] HospitalComment on above:Performed By: #### CMP ####[facility] Gqfiygqlmk1539[address] [place], [place] [address]Dr.Airam TripathiUrea nitrogen [Mass/Vol]37.0 mg/dL Critically high7.0-18.0The [facility] HospitalComment on above:Performed By: #### CMP ####[facility] Pvprokxdzr585[address] [place], [place] [address]Dr. Airam TripathiUrea nitrogen/Creatinine [Mass ratio]18.7 mg/mgNormalThe [facility] HospitalComment on above:Performed By: #### CMP ####[facility] Gdwqhrbehq4549[address] [place], [place] [address]Dr.Airam DeuceOSMOLALITYon 94-31-5336Grhnnfykhq [Osmolality]271 mosm/kgCritically oge207-718Bpf [facility] HospitalComment on above:Performed By: #### OSMO ####[facility] Ryksagdxxt799[address] [place], [place] [address]Dr. Airam TripathiCBC AUTO DIFF on [id number] #0.0 103/ulNormal0.0-0.1The [facility] HospitalComment on above: Performed By: #### CBC ####[facility] Xmghuuqruf1301[address] [place], [place] [address]Dr.Yilan ChangBasophils/100 WBC (Bld)0.6 %Normal 0.2-2.0The [facility] HospitalComment on above:Performed By: #### CBC ####[facility] Pojxbtvrea[address] [place] [address]Dr.Yilan ChangEO # 0.1 103/ulNormal0.0-0.7The [facility] HospitalComment on above:Performed By: #### CBC ####[facility] Aqbxxfimxd[address] [place], [place] [address]Dr. Yilan ChangEosinophils/100 WBC (Bld)2.1 %Normal0.9-7.0The [facility] Comment on above:Performed By: #### CBC ####[facility] Arwyjnayxb6914[address] [place], [place] [address]Dr.Yilan ChangErythrocyte distribution width (RBC) [Ratio]13.1 %Wyqsmf21.0-15.0The [facility] HospitalComment on above: Performed By: #### CBC ####[facility] Mcsypyxtpt955[address] [place], [place] [address]Dr.Yilan ChangHematocrit (Bld) [Volume fraction]33.8 % Critically low36.0-48.0The [facility] HospitalComment on above:Performed By: #### CBC ####[facility] Fgefieugkm650[address] [place], [place] [address]Dr. Yilan ChangHemoglobin (Bld) [Mass/Vol]10.7 g/dLCritically low12.0-16.0The [facility] HospitalComment on above:Performed By: #### CBC ####[facility] Wfufxztnvf54[address] [place], [place] [address]Dr.Yilan ChangIG #0.02 10e3/ulNormal0.00-0.03The [facility] HospitalComment on above:Performed By: #### CBC ####[facility] Rkrkkuuhgq21[address] [place], [place] [address]Dr. Yilan ChangIG %0.3 %Normal0.0-0.5The [facility] HospitalComment on above:Performed By: #### CBC ####[facility] Xrjofcbcbh217[address] [place] [address]Dr.Airam ChangLYMPH #1.2 103/ulNormal1.2-3.8The [facility] Comment on above:Performed By: #### CBC ####[facility] Tvensooler87[address] [place] [address]Dr.Airam TripathiLymphocytes/100 WBC (Bld)17.3 %Critically low20.5-60.0The [facility] HospitalComment on above:Performed By: #### CBC ####[facility] Dvhzdfgpic27[address] [place] [address]Dr.Airam ChangMANUAL DIFF REQNONormalThe [facility] HospitalComment on above: Performed By: #### CBC ####[facility] Cdmsqlufcj9089[address] [place], [place] [address]Dr.Airam TripathiMCH (RBC) [Entitic mass]30.2 pgNormal 26.7-34.0The [facility] HospitalComment on above:Performed By: #### CBC ####[facility] Tjhwtvuunv418[address] [place], [place] [address]Dr. Airam TripathiMCHC (RBC) [Mass/Vol]31.7 g/lZOuzwnx81.9-35.2[facility] Comment on above:Performed By: #### CBC ####[facility] Qzjsqkmtyw883[address] [place], [place] [address]Dr.Airam TripathiMCV (RBC) [Entitic vol]95.5 fL Uiovrv07.0-99.0The [facility] HospitalComment on above:Performed By: #### CBC ####[facility] Dulygghitf78[address] [place] [address]Dr. Airam ChangMONO #0.5 103/ulNormal0.3-0.8The [facility] HospitalComment on above: Performed By: #### CBC ####[facility] Bfzcbqdiuv437[address] [place], [place] [address]Dr.Airam ChangMonocytes/100 WBC (Bld)6.8 %Normal 1.7-12.0The [facility] HospitalComment on above:Performed By: #### CBC ####[facility] Vckeqvoirv64[address] [place] [address]Dr. Airam TripathiNEUT #4.9 103/ulNormal1.4-6.5The [facility] HospitalComment on above: Performed By: #### CBC ####[facility] Snjihdnqar[address] [place] [address]Dr.Airam TripathiNeutrophils/100 WBC (Bld)72.9 %Normal 43.0-75.0The [facility] HospitalComment on above:Performed By: #### CBC ####[facility] Emmdjiyvgt303[address] [place], [place] [address]Dr. Airam TripathiPlatelet mean volume (Bld) [Entitic vol]9.0 fLCritically low9.5-13.[address] [facility] HospitalComment on above:Performed By: #### CBC ####[facility] Oavzwzcioz12[address] [place], [place] [address]Dr.Airam UfzgoVVW590 103/znAdhmge192-096Ixn [facility] HospitalComment on above:Performed By: #### CBC ####[facility] Fnaqigcrsg956[address] [place], [place] [address]Dr. Airam TripathiRBC3.54 106/ulCritically low4.20-5.40The [facility] HospitalComment on above:Performed By: #### CBC ####[facility] Asslyiswws203[address] [place], [place] [address]Dr.Airam TripathiWBC6.8 103/ulNormal4.0-11.0The [facility] HospitalComment on above:Performed By: #### CBC ####[facility] Jbkkfkajie[address] [place], [place] [address]Dr.Airam TripathiPROF 14(COMP METB)on 34-13-9676Qcgjvnp [Mass/Vol]3.2 g/dLCritically low3.4-5.0The [facility] HospitalComment on above:Performed By: #### CMP ####[facility] Ggwoccshxo77280[address] [place], [place] [address]Dr.Airam Tripathi Albumin/Globulin [Mass ratio]1.0 {ratio}NormalThe [facility] HospitalComment on above:Performed By: #### CMP ####[facility] Nzhqipompt90[address] [place] [address]Dr.Yilan ChangALP [Catalytic activity/Vol]109 U/L Dygpxq41-447Qvy [facility] HospitalComment on above:Performed By: #### CMP ####[facility] Omxwcqheoi8[address] [place] [address]Dr. Yilan ChangALT [Catalytic activity/Vol]23 U/GQcvlgb16-89Dpy [facility] Comment on above:Performed By: #### CMP ####[facility] Tknktylehh039[address] [place], [place] [address]Dr.Yilan ChangAnion gap [Moles/Vol]11.6 mmol/LNormalThe [facility] HospitalComment on above:Performed By: #### CMP ####[facility] Voftqjponk534[address] [place], [place] [address]Dr. Yilan ChangAST [Catalytic activity/Vol]24 U/JJpfmjk37-85Pfg [facility] Comment on above:Performed By: #### CMP ####[facility] Trrltoenbd159[address] [place], [place] [address]Dr.Yilan ChangBilirubin [Mass/Vol]0.2 mg/dL Normal0.2-1.0The [facility] HospitalComment on above:Performed By: #### CMP ####[facility] Xzdeqdbrue326[address] [place], [place] [address]Dr. Yilan ChangCalcium [Mass/Vol]8.6 mg/dLNormal8.5-10.1The [facility] HospitalComment on above:Performed By: #### CMP ####[facility] Nnozgfwpuy477[address] [place], [place] [address]Dr.Yilan ChangChloride [Moles/Vol]100 mmol/LNormal 98-107The [facility] HospitalComment on above:Performed By: #### CMP ####[facility] Frfrqylguh022[address] [place], [place] [address]Dr.Yilan ChangCO2 [Moles/Vol]24.7 mmol/IAhdqug93.0-32.0The [facility] HospitalComment on above: Performed By: #### CMP ####[facility] Udzdqbftin09[address] [place] [address]Dr.Airam ChangCreatinine [Mass/Vol]1.11 mg/dL Critically high0.55-1.02[facility] SystemComment on above:Performed By: #### CMP ####[facility] Qtexojrgak29[address] [place] [address]Dr.Yilan ChangEGFR-AF CUBAN>60Normal>=60The [facility] HospitalComment on above:Performed By: #### CMP ####[facility] Fggjjfsvpa3701[address] [place], [place] [address]Dr.Yilan ChangEGFR-NON AF GHCREJXL74 mL/min/1.73m2 Critically low>=60The [facility] HospitalComment on above:Performed By: #### CMP ####[facility] Jjqirbgmth383[address] [place], [place] [address]Dr. Airam ChangGlobulin (S) [Mass/Vol]3.1 g/dLNormalThOhioHealth Doctors HospitalComment on above:Performed By: #### CMP ####[facility] Jwdqeobdid6779[address] [place], [place] [address]Dr.Airam ChangGlucose [Mass/Vol]79 mg/nIRfgzec29-214 [facility] SystemComment on above:Performed By: #### CMP ####[facility] Wnlipfrnce610[address] [place], [place] [address]Dr.Airam Tripathi Potassium [Moles/Vol]5.3 mmol/LCritically high3.5-5.1The [facility] Comment on above:Performed By: #### CMP ####[facility] Hdcplhoknk307[address] [place], [place] [address]Dr.Selenaneil ChangProtein [Mass/Vol]6.3 g/dL Critically low6.4-8.2The [facility] HospitalComment on above:Performed By: #### CMP ####[facility] Emiksdezkb800[address] [place], [place] [address]Dr. Airam ChangSodium [Moles/Vol]131 mmol/LCritically ass269-109Rrb [facility] HospitalComment on above:Performed By: #### CMP ####[facility] Lgyqgcwklo1959[address] [place], [place] [address]Dr.Airam ChangUrea nitrogen [Mass/Vol]20.0 mg/dLCritically high7.0-18.0The [facility] HospitalComment on above:Performed By: #### CMP ####[facility] Mrnzgzslpk348[address] [place], [place] [address]Dr.Selenalan ChangUrea nitrogen/Creatinine [Mass ratio] 18.0 mg/mgNormalThe [facility] HospitalComment on above:Performed By: #### CMP ####[facility] Nbyhgwzyqx2217[address] [place], [place] [address]Dr. Airam ChangOSMOLALITYon 74-61-3764Fhhapmsdav [Osmolality]279 mosm/kgNormal 275-295The [facility] HospitalCommclaren flint on above:Performed By: #### OSMO ####[facility] Ybywptohpx[address] [place], [place] [address]Dr. Selenaneil ChangCBC AUTO DIFFon 67-85-3613OBGI #0.0 103/ulNormal0.0-0.1The [facility] HospitalCommclaren flint on above:Performed By: #### CBC ####[facility] Fjdkiflznh010[address] [place], [place] [address]Dr.Selenalan ChangBasophils/100 WBC (Bld)0.5 %Normal0.2-2.0The [facility] HospitalCommclaren flint on above:Performed By: #### CBC ####[facility] Slfyzrgwwn195[address] [place], [place] [address]Dr.Yilan ChangEO #0.4 103/ulNormal0.0-0.7The [facility] on above:Performed By: #### CBC ####[facility] Swcxawupfk839[address] [place], [place] [address]Dr.Selenalan ChangEosinophils/100 WBC (Bld)6.3 %Normal 0.9-7.0The [facility] on above:Performed By: #### CBC ####[facility] Kkkgpgqdty9[address] [place] [address]Dr.Airma Tripathi Erythrocyte distribution width (RBC) [Ratio]13.3 %Hkypsa81.0-15.0The [facility] HospitalComment on above:Performed By: #### CBC ####[facility] Ialbbeways399[address] [place], [place] [address]Dr.Airam TripathiHematocrit (Bld) [Volume fraction]29.5 %Critically low36.0-48.0The [facility] HospitalComment on above:Performed By: #### CBC ####[facility] Ockbjzpgvl384[address] [place], [place] [address]Dr.Selenaneil TripathiHemoglobin (Bld) [Mass/Vol]9.1 g/dL Critically low12.0-16.0The [facility] HospitalComment on above:Performed By: #### CBC ####[facility] Ygqtezktxk234[address] [place], [place] [address]Dr. Airam TripathiIG #0.04 10e3/ulCritically high0.00-0.03The [facility] HospitalComment on above:Performed By: #### CBC ####[facility] Agwmpfuiip612[address] [place], [place] [address]Dr.Airam TripathiIG %0.7 %Critically high0.0-0.5The [facility] HospitalComment on above:Performed By: #### CBC ####[facility] Liwykfirzq99[address] [place], [place] [address]Dr.Airam DeuceLYMPH #1.3 103/ulNormal1.2-3.8The [facility] HospitalComment on above:Performed By: #### CBC ####[facility] Nezjlymnot349[address] [place], [place] [address]Dr. Selenaneil TripathiLymphocytes/100 WBC (Bld)20.9 %Wypmrc84.5-60.0The [facility] Comment on above:Performed By: #### CBC ####[facility] Bwuxkdozlc38[address] [place], [place] [address]Dr.Airam DeuceMANUAL DIFF REQNONormalThe [facility] HospitalComment on above:Performed By: #### CBC ####[facility] Egajnecxkg7660 [place] [address]Dr.Airam TripathiH (RBC) [Entitic mass]30.1 hrJwmxhn17.7-34.0The [facility] HospitalComment on above: Performed By: #### CBC ####[facility] Gpdoshabyq5384 [place] [address]Dr.Airam DeuceHC (RBC) [Mass/Vol]30.8 g/dLNormal 29.9-35.2The [facility] HospitalComment on above:Performed By: #### CBC ####[facility] Hifjmyxkiw429[address] [place], [place] [address]Dr. Selenaneil TripathiV (RBC) [Entitic vol]97.7 iGRsnjzj29.0-99.0The [facility] Comment on above:Performed By: #### CBC ####[facility] Lhcuvtieag[address] [place], [place] [address]Dr.Airam TripathiMONO #0.4 103/ulNormal0.3-0.[address] [facility] HospitalComment on above:Performed By: #### CBC ####[facility] Cbxnceqrdp085[address] [place], [place] [address]Dr.Selenaneil Tripathi Monocytes/100 WBC (Bld)6.6 %Normal1.7-12.0The [facility] HospitalComment on above: Performed By: #### CBC ####[facility] Msniyffrku648[address] [place], [place] [address]Dr.Airam DeuceNEUT #4.0 103/ulNormal1.4-6.5The [facility] HospitalComment on above:Performed By: #### CBC ####[facility] Lnqccsrdyy8715[address] [place], [place] [address]Dr.Selenaneil TripathiNeutrophils/100 WBC (Bld)65.0 %Fcswfo21.0-75.0The [facility] HospitalComment on above:Performed By: #### CBC ####[facility] Onbkkqarfw618[address] [place], [place] [address]Dr.Selenaneil TripathiPlatelet mean volume (Bld) [Entitic vol]9.4 fLCritically low 9.5-13.5The [facility] HospitalComment on above:Performed By: #### CBC ####[facility] Hazaiqokke79260[address] [place], [place] [address]Dr. Airam TripathiPLT224 103/voUhaocf123-474Ghx [facility] HospitalComment on above: Performed By: #### CBC ####[facility] Ujtgkwuosr89[address] [place], [place] [address]Dr.Airam TripathiRBC3.02 106/ulCritically low4.20-5.40[facility] SystemComment on above:Performed By: #### CBC ####[facility] Yzkkdkkgkt7989[address] [place], [place] [address]Dr.Airam TripathiWBC6.1 103/ul Normal4.0-11.0The [facility] HospitalComment on above:Performed By: #### CBC ####[facility] Ycolhzgedz1789[address] [place], [place] [address]Dr. Airam ChangPROF 14(COMP METB)on 84-64-7076Ebvzrkh [Mass/Vol]2.8 g/dLCritically low3.4-5.0[facility] SystemComment on above:Performed By: #### CMP ####[facility] Neqgmxjjdq294[address] [place], [place] [address]Dr. Airam ChangAlbumin/Globulin [Mass ratio]1.1 {ratio}NormalMemorial Health System Comment on above:Performed By: #### CMP ####[facility] Hxurpyywai97[address] [place], [place] [address]Dr.Airam ChangALP [Catalytic activity/Vol] 116 U/YHxxtnx86-470Ksy [facility] HospitalComment on above:Performed By: #### CMP ####[facility] Xlloxrmfsf149[address] [place], [place] [address]Dr. Airam TripathiALT [Catalytic activity/Vol]23 U/MEqhkhc76-95Gcj [facility] Comment on above:Performed By: #### CMP ####[facility] Junpagiocm764[address] [place], [place] [address]Dr.Airam TripathiAnion gap [Moles/Vol]12.1 mmol/LNormalThe [facility] HospitalComment on above:Performed By: #### CMP ####[facility] Fzorqbkois[address] [place], [place] [address]Dr. Yilan ChangAST [Catalytic activity/Vol]23 U/BWxfddb59-47Yob [facility] Comment on above:Performed By: #### CMP ####[facility] Tealnenowa9[address] [place], [place] [address]Dr.Yilan ChangBilirubin [Mass/Vol]0.2 mg/dL Normal0.2-1.0The [facility] HospitalComment on above:Performed By: #### CMP ####[facility] Yrmopvafbr[address] [place], [place] [address]Dr. Yilan ChangCalcium [Mass/Vol]8.1 mg/dLCritically low8.5-10.1The [facility] HospitalComment on above:Performed By: #### CMP ####[facility] Etbcjnvcia[address] [place], [place] [address]Dr.Yilan ChangChloride [Moles/Vol]105 mmol/EJfagcn39-445Hqw [facility] HospitalComment on above:Performed By: #### CMP ####[facility] Sczcchckuk[address] [place], [place] [address]Dr.Yilan ChangCO2 [Moles/Vol]22.1 mmol/GXovzzd45.0-32.0The [facility] HospitalComment on above:Performed By: #### CMP ####[facility] Enbcmkkngb[address] [place], [place] [address]Dr.Yilan ChangCreatinine [Mass/Vol]1.06 mg/dLCritically high0.55-1.02The [facility] HospitalComment on above:Performed By: #### CMP ####[facility] Qgziuulzbv[address] [place], [place] [address]Dr.Yilan ChangEGFR-AF CUBAN>60Normal>=60The [facility] HospitalComment on above:Performed By: #### CMP ####[facility] Udbrzmbxgc[address] [place], [place] [address]Dr.Yilan ChangEGFR-NON AF XVPBPFST63 mL/min/1.82i5Hnigjecdgw low>=60The [facility] HospitalComment on above: Performed By: #### CMP ####[facility] Kdnqvmjyfj[address] [place], [place] [address]Dr.Selenaneil DeuceGlobulin (S) [Mass/Vol]2.6 g/dLNormalThOhioHealth Doctors HospitalComment on above:Performed By: #### CMP ####[facility] Skhojtwbpr[address] [place], [place] [address]Dr.Airam DeuceGlucose [Mass/Vol]109 mg/dLCritically nlkx64-606Bgd [facility] HospitalComment on above: Performed By: #### CMP ####[facility] Yoadaisccd[address] [place], [place] [address]Dr.Airam DeucePotassium [Moles/Vol]4.2 mmol/LNormal 3.5-5.1The [facility] HospitalComment on above:Performed By: #### CMP ####[facility] Nqigmnwllr[address] [place], [place] [address]Dr.Airam Tripathi Protein [Mass/Vol]5.4 g/dLCritically low6.4-8.2The [facility] HospitalComment on above:Performed By: #### CMP ####[facility] Jzvehkplkj[address] [place], [place] [address]Dr.Airam ChangSodium [Moles/Vol]135 mmol/LCritically hbl044-221Zzv [facility] HospitalComment on above:Performed By: #### CMP ####[facility] Kvotyochba[address] [place], [place] [address]Dr. Airam ChangUrea nitrogen [Mass/Vol]15.0 mg/dLNormal7.0-18.0The [facility] Comment on above:Performed By: #### CMP ####[facility] Duecevgraq[address] [place], [place] [address]Dr.Airam ChangUrea nitrogen/Creatinine [Mass ratio]14.2 mg/mgNormalThe [facility] HospitalComment on above:Performed By: #### CMP ####[facility] Kcfhpgqnvc697[address] [place], [place] [address]Dr. Yilan ChangOperative Reporton 60-70-0240Ysorgkmms ReportMR#: [id number] S [facility] Pt. Name: Mabel Moser Room [...] subscapularis. 3. Right shoulder proximal biceps tenotomy. OIL RECOVERY UNIT OPERATOR: Alex Serra M.D. ANESTHESIA: General. INDICATIONS: [...] Reza M.D. Date Trans: 08/19/2021 11:37 A/carter DN_JN:[id number] cc: Yuri Santana M.D. [address] [place] [address]LdafkpDndMercy Health Clermont Hospital GLUCOSE LABon [id number] [Mass/Vol]77 mg/kTXguznc80-761Lcu [facility] CenterComment on above:Performed By: #### [id number] #### [facility] [place] [address], USACNPNon 28-57-1840ZFXCPttuzmoog (HEMASA) MABEL MOSER ([id number]) 1960 F Date Time Provider Department 04/05/21 YEVGENIY FORD During your visit today, we recorded the following information about you: Chana Gallegos [facility] 04/05/2021 7:57 AM Signed Records faxed to the cancer center at [facility]. Patient to follow with Dr. Liu. Release [...] neuroge*08/15/2016 Encounter Status:Closed by CHANA LEE on 04/05/21[facility] HospitalOBSSELAMkeyur 37-50-2053KUVBDBDQKknmyf (HEMASA) MABEL MOSER ([id number]) 1960 F Date Time Provider Department 01/11/21 [...] month. Encounter Status:Closed by YEVGENIY FORD on [facility]/12/21[facility] Vital Signs Date TimeVital SignValuePerforming RkgkyddncQhnmvfsj01-53-8427 11:06-0400Body uxlnug345.48 cmYuri Santana MD Work Phone: 1(045)954-[address] [place], [place] 4832207-22-2025 11:06-0400 Body mass index (BMI) [Ratio]35.5 kg/m9SkzqduqYuri Santana MD Work Phone: 1(288)[address]07-22-2025 11:06-0400 Body orqiao40.22 kgYuri Santana MD Work Phone: 6(870)987-[address] [place], [place] 4832207-22-2025 11:06-0400 Diastolic blood gbyzuouh68 mm[Hg]Yuri Santana MD Work Phone: 1(913)731-[address] [place], [place] 4832207-22-2025 11:06-0400 Heart rate79 /Mary Grace Santana MD Work Phone: 0(451)614-[address] [place], [place] 4832207-22-2025 11:06-0400 Respiratory rate16 /Mary Grace Santana MD Work Phone: 4(583)447-[address] [place], [place] 4832207-22-2025 11:06-0400 SaO2% (BldA) [Mass fraction]98 %Yuri Santana MD Work Phone: [facility]07-22-2025 11:06-0400 Systolic blood gdblaghk067 mm[Hg]Yuri Santana MD Work Phone: [facility]04-09-2025 14:44-0400 Body dmvvna684.48 cmDay[facility]04-09-2025 14:44-0400Body mass index (BMI) [Ratio]42.2 kg/w4IgwnbpgedDayton Osteopathic Hospital04-09-2025 14:44-0400Body zkxuur248.77 kgDayton Osteopathic Hospital04-09-2025 14:44-0400Diastolic blood bsubhqad14 mm[Hg][facility] 10-02-2024 14:44-0400Heart rate76 /[facility] 10-02-2024 14:44-0400Respiratory rate16 /[facility] 10-02-2024 14:44-7152JqL1% (BldA) [Mass fraction]100 %[facility]04-09-2025 14:44-0400Systolic blood lacjipmi384 mm[Hg][facility]10-01-2024 11:47-0400Body mass index (BMI) [Ratio]41.1 kg/m2 [facility]10-01-2024 11:47-0400Diastolic blood mm[Hg][facility]10-01-2024 11:47-0400Heart rate81 /min [facility]10-01-2024 11:47-0400Respiratory rate18 /min [facility]10-01-2024 11:47-9554CdC4% (BldA) [Mass fraction]92 %[facility]10-01-2024 11:47-0400Systolic blood ccdpjulh931 mm[Hg][facility]10-01-2024 08:52-0400 Body .48 cmDay[facility]10-01-2024 08:52-0400Body ioyczlzcqgt91.1 [degF][facility]10-01-2024 08:52-0400Body .05 [facility]09-10-2024 13:52-0400Blood Pressure LocationMichael NILL 429-3403Gjnyze-RdyevMer[facility]09-10-2024 13:52-0400Diastolic blood fytgzubg19 mm[Hg]Migel NILL 044-6968Sjkjwh-ExzumMercy Health [facility] Hospital09-10-2024 13:52-0400Heart rate77 /minMichael NILL 541-9007Dqehic-NxsnwMercy Health [facility] Hospital09-10-2024 13:52-0400Respiratory rate16 /minMichael NILL 200-2110Yazsfc-MsrwaMercy Health West Hospital09-10-2024 13:52-0400Systolic blood hnycdrbq191 mm[Hg]Migel NILL 512-5846Lpmtxo-AthgzMercy Health [facility] Hospital01-08-2024 12:00-0500Body mfxjmchshix41.9 [degF]MD Yuri Santana Work Phone: 1(151)610-[address] [place], [place] 4832201-08-2024 12:00-0500 Diastolic blood hipbyotu20 mm[Hg]MD Yuri Santana Work Phone: 1(873)[address]01-08-2024 12:00-0500 Heart rate68 /minMD Yuri Santana Work Phone: 1(576)758-[address] [place], [place] 4832201-08-2024 12:00-0500 Respiratory rate16 /minMD Yuri Santana Work Phone: 1(508)[address]01-08-2024 12:00-0500 SaO2% (BldA) [Mass fraction]100 %MD Yuri Santana Work Phone: 1(227)916-[address] [place], [place] 4832201-08-2024 12:00-0500 Systolic blood emzgckrr016 mm[Hg]MD Yuri Santana Work Phone: 1([phone])[address]01-08-2024 04:49-0500 Body zbwiki06.8 kgMD Yuri Santana Work Phone: [facility]01-05-2024 14:44-0500 Body mxhvfo584.48 cmMD Yuri Santana Work Phone: [facility]10-10-2023 16:20-0400 Body eqqshx235.75 cmAbreonna Tadjohnnie Other [employer] Other 195965-38-7998 16:20-0400Body mass index (BMI) [Ratio] 31.46 kg/m2Raeann Tadjohnnie Other [employer] Other 10-10-2023 16:20-0400Body nitnltfuyky37 [degF]Raeann Harrisonkendalljohnnie Other [facility] Other 10-10-2023 16:20-0400Body .29 kgRaeann Tadjohnnie Other [employer] Other 10-10-2023 16:20-0400Diastolic blood zpiuwzve07 mm[Hg] Raeann Harrisonkendalljohnnie Other [employer] Other 10-10-2023 16:20-0400Respiratory rate18 /minRaeann Harrisonkendalljohnnie Other [employer] Other 10-10-2023 16:20-4348WeQ0% (BldA) [Mass fraction]98 % Raeann Tadjohnnie Other [employer] Other 10-10-2023 16:20-0400Systolic blood bqslwjap070 mm[Hg] Raeann Tads Other [employer] Other 05-05-2023 22:23-0400Body evwvloctznd10.4 [degF]MD Yuri Santana Work Phone: 1(178)514-[address] [place], [place] 4832205-05-2023 22:00-0400 Diastolic blood gachjrxn53 mm[Hg]MD Yuri Santana Work Phone: 1(463)525-[address] [place], [place] 4832205-05-2023 22:00-0400 Heart rate72 /minMD Yuri Santana Work Phone: 1(670)513-[address] [place], [place] 4832205-05-2023 22:00-0400 Respiratory rate20 /minMD Yuri Santana Work Phone: 1(477)999-[address] [place], [place] 4832205-05-2023 22:00-0400 SaO2% (BldA) [Mass fraction]97 %MD Yuri Santana Work Phone: [phone])[address]05-05-2023 22:00-0400 Systolic blood bdiuwkpo218 mm[Hg]MD Yuri Santana Work Phone: 1(840)[address]05-05-2023 17:54-0400 Body ldszeb856.48 cmMD Yuri Santana Work Phone: 1(455)226-[address] [place], [place] 4832205-05-2023 17:54-0400 Body rxyjsw82.7 kgMD Yuri Santana Work Phone: 1(155)444-[address] [place], [place] 4832204-04-2023 12:00-0400 Body .75 Luara Casimiro Other [employer] Other 04-04-2023 12:00-0400Body mass index (BMI) [Ratio] 31.78 kg/m2Raeann Casimiro Other [employer] Other 04-04-2023 12:00-0400Body ocehfpsfvlf22.1 [degF]Raeann Casimiro Other [facility] [employer] Other 04-04-2023 12:00-0400Body yjhvae83.11 kgRaeann [employer] Other [employer] Other 04-04-2023 12:00-0400Diastolic blood oogjwsuk00 mm[Hg] Azariel Kirkpatrick Other [employer] Other 04-04-2023 12:00-0400Respiratory rate18 /minRaeann Kirkpatrick Other [place] [employer] Other 04-04-2023 12:00-1646WqH7% (BldA) [Mass fraction]99 % Azariel Kirkpatrick Other [employer] Other 04-04-2023 12:00-0400Systolic blood mzwujnmu837 mm[Hg] Raeann Kirkpatrick Other [employer] Other 10-18-2022 14:00-0400Body qenpgv133.75 cmAbreonna Harrisonkendalljohnnie Other [employer] Other 10-18-2022 14:00-0400Body mass index (BMI) [Ratio] 30.13 kg/m2Raeann Kirkpatrick Other [employer] Other 10-18-2022 14:00-0400Body pzgdbqonmrm38.6 [degF]Raeann Kirkpatrick Other [employer] Other 10-18-2022 14:00-0400Body offims77.93 kgRaeann Kirkpatrick Other [employer] Other 10-18-2022 14:00-0400Diastolic blood soymsldw88 mm[Hg] Raeann Mishras Other [employer] Other 10-18-2022 14:00-0400Respiratory rate18 /minRaeann Kirkpatrick Other [employer] Other 10-18-2022 14:00-2749YvB0% (BldA) [Mass fraction]98 % Raeann Kirkpatrick Other [employer] Other 10-18-2022 14:00-0400Systolic blood tjbapqgk376 mm[Hg] Raeann Kirkpatrick Other [employer] Other 12-22-2021 16:20-0500Body voynwp710.75 cmEalexairvin Abiodungerald Other [employer] Other 12-22-2021 16:20-0500Body mass index (BMI) [Ratio] 30.88 kg/j5IyszdLos Grissom Other [employer] Other 12-22-2021 16:20-0500Body wnkzwmucgxv80.4 [degF]Bryonirvin Grissom Other [employer] Other 12-22-2021 16:20-0500Body .84 kgLos Grissom Other [employer] Other 12-22-2021 16:20-0500Diastolic blood ihtacled82 mm[Hg] Los Grissom Other [employer] Other 12-22-2021 16:20-0500Respiratory rate18 /minEfidelina Grissom Other [employer] Other 12-22-2021 16:20-8408YhU1% (BldA) [Mass fraction]99 % [place] Grissom Other [facility] [employer] Other [id number] 16:20-0500Systolic blood mm[Hg] [place] Grissom Other [facility] [employer] Other Encounters Encounter DateEncounter TypeCare ProviderFacilityStart: 04-28-2025 End: 06-18-8916yuvgernapiAJPJDQ [facility] Start: 04-28-2025 End: 34-95-3524Evkpgeazy for preprocedural cardiovascular examinationGEORCommunity Memorial Hospitaltart: 04-08-2025 End: 47-62-9885dqimjxpcdrTAWEN [facility]: 02-10-2025 End: 73-04-7278omvotqmjvxWwrbjrxAlea Smith MDFacility:PM Sophie Start: 01-14-2025 End: 44-08-6522ccenatywnbZoxavlq M Hoy MD Work Phone: [facility] Work Phone: Start: 01-14-2025 End: 07-09-8518Kgsrsbv encounter procedureRaeann Kirkpatrick MD-[facility] Nephrology Emmalena Work Phone: Start: 58-77-9220Ymv-patient / Non-visitRaeann Kirkpatrick MD-[facility] Professional [employer] Work Phone: Start: 12-09-2024 End: 14-36-4888lkgplsvskpScywktlAngelique Smith MDFacility:PM Sophie Start: 10-11-2024 End: 49-02-6245lnxfxmgzhrDMYPWJ [facility] Start: 10-07-2024 End: 35-83-5528mtytdbhzhoEzxoyguAngelique Smith MDFacility:PM Sophie Start: 10-02-2024 End: 15-64-3026bwhnpmyudnOpcaxzwroOhioHealth [facility] Work Phone: Start: 10-02-2024 End: 08-15-3981Yrpcwit encounter procedureFirbath [facility] Phys[facility] Work Phone: Start: 09-09-2024 End: 06-22-8667ttektmlwjdYOXKO ELATTARUniversity of Memorial Hermann Southeast Hospitaltart: 09-09-2024 End: 11-53-5540fojoyvkksnWYJTA ELATTARUniversity of Memorial Hermann Southeast Hospitaltart: 08-08-2024 End: 34-42-3024rgmfvfzmbgFWWHL ELATTARUniversity DeTar Healthcare Systemtart: 45-16-8500Cor-patient / Non-visitFirjayy Physician Group-[facility] Professional Co Work Phone: Start: 35-73-2386qbckgxmkulODBJNUMadera Community Hospitaltart: 10-33-5404xdzpgplrerWPLGLHNorthridge Hospital Medical Centertart: 08-74-0605fbdehlfuucDKFYTHJohn [facility] Start: 03-26-2024 End: 35-71-4296oibbzodwwxWjnocfvxeOhioHealth [facility] Work Phone: Start: 03-26-2024 End: 85-06-1331Jbxtpby encounter procedureBetsy [facility] Phys[facility] Nephrology Eloy Work Phone: Start: 03-05-2024 End: 56-58-7677ymgdiuemxcHuzjzgh R NILLFacility:GS BellmagaliueStart: 03-05-2024 End: 44-51-7457Abrrlvx encounter procedureMichael R NILL 202-2102Kxiqbp-[facility] [place] Start: 01-22-2024 End: 00-40-2143Zhrbugvkte and management of inpatientAMER ARI SANTOSH [facility] Hospitaltart: 51-11-8653gmxjcjebxgFOBYIEG M [facility] Ambulatory PPGStart: 09-30-2023 End: 44-55-8394Ieqzeamhux and management of inpatientSBRYAN Core[facility] CenterStart: 07-11-2023 End: 86-20-8342vxukbfvvhwNvne Bakhous Other [employer] Other Start: 41-59-6271Qpkzwgwfu encounterAziz BakhousFPG NephrologyStart: 06-29-2023 End: 07-61-5452Icvugsnotq and management of inpatientSlilia Randhawa Facility:[facility]tart: 06-29-2023 End: 65-30-8627Obyvsdydal and management of inpatientMD Yuri Santana Work Phone: [facility] [place] [facility] Work Phone: Start: 04-04-2023 End: 06-63-7022sxbvstsfrkXntd Bakhous Other [facility] [employer] Other Start: 37-56-5466Eoahks outpatient visit 25 minutes Aziz BakhousFPG NephrologyStart: 04-03-2023 End: 47-90-7443kxicugwbfhUccv Bakhous Other [facility] [employer] Other Start: 07-05-5546Maducbsux encounterAziz BakhousFPG NephrologyStart: 12-12-2022 End: 18-51-7382zgqxcgqmmtWmui Bakhous Other [facility] [employer] Other Start: 51-83-2586Ihcwwpclz encounterAziz BakhousFPG NephrologyStart: 12-08-2022 End: 59-90-0279zrlyiijqeoDgze Bakhous Other [place] [employer] Other Start: 62-05-7139Afmpueijo Diclia Connors NephrologyStart: 11-22-2022 End: 61-91-6107eghsbeqwvoBA YURI HOY .Facility:I4Fpjhh: 11-22-2022 End: 19-42-1881kdolniblrsHDRRDJQYPUEH LAKSHMIPATHY .Facility:D1Mzgyn: 11-16-2022 End: 72-99-3161owipwfqakwTB YURI HOY .Facility:X3Tkyix: 11-04-2022 End: 88-86-3271wlulwgevccYAUPKMBSNWZF LAKSHMIPATHY .Facility:S7Fibjo: 11-03-2022 End: 08-14-8715roflkxdssrPL YURI HOY .Facility:K5Llvsh: 83-74-3027jdzvovtugc SANTOS ROUSSEAU .Facility:M5Filzs: 10-28-2022 End: 52-61-6579Qevpaqhpu department patient visitArthjuly Aime Helm Facility:[facility] Hospitaltart: 10-28-2022 End: 04-09-1689Usgtbndno department patient visitMD Yuri Hoy Work Phone: [facility] Work Phone: Start: 10-27-2022 End: 46-49-9400sqibyodvsbXZJWSKTCWDHX LAKSHMIPATHY .Facility:N2Yjlsm: 10-25-2022 End: 78-00-1312Hkcqjpmvvy and management of inpatientDR YURI HOY .Facility:H1 Start: 10-19-2022 End: 30-31-3025vznkwajognQN YURI HOY .Facility:X5Imcej: 10-12-2022 End: 65-38-2548cdqhjuxlspUA YURI HOY .Facility:O1Pmjzf: 10-12-2022 End: 20-80-1346ochbtbednbFGDY TAMLYN .Facility:Z7Ttsqu: 10-11-2022 End: 88-96-7690zkpcciibpbONXUAOOWHEZT LAKSHMIPATHY .Facility:A8Tuvrk: 10-05-2022 End: 49-76-3851epjkdfswyyZY YURI HOY .Facility:E1Ozwbd: 30-99-3204vyynrdnejf FELECIA TAMLYN .Facility:A0Ccmqq: 09-29-2022 End: 23-86-6569cpkcwfporjKX YURI HOY .Facility:P9Vjiof: 09-27-2022 End: 43-62-5313gfeolezdnnBfep Tads Other [facility] [employer] Other Start: 70-55-8451Uvlvml outpatient visit 25 minutes Wiariel [facility] Nephrology ClydeStart: 09-21-2022 End: 50-64-1109pblblbvlktCW YURI HOY .Facility:K8Emhzh: 09-20-2022 End: 80-41-0805kiwxhkngbeXSYPXRBFNHFQ LAKSHMIPATHY .Facility:H4Jivby: 09-19-2022 End: 47-90-0482lrewmrcbeeCZ YURI HOY .Facility:H5Hheoy: 09-19-2022 End: 43-34-3182grcoydoeioJYNK BAKHOUSFacility:I6Xjnel: 08-24-2022 End: 16-71-1853lkvflkqqrrRA YURI HOY .Facility:B1Vgaox: 08-23-2022 End: 45-90-0748qaxjzkaillCvxrdfd Calvey Other [facility] [employer] Other Start: 04-10-0400Qdglsr outpatient new 30 minutes SueOrchard HospitalFPG [facility]icsStart: 08-16-2022 End: 66-49-7314byhytzbicqDW YURI HOY .Facility:L0Tindy: 08-06-2022 End: 07-78-0341vxeyaptydeUOSQTT DIAB .Facility:J7Hquyk: 07-27-2022 End: 56-36-7428wongjoxciiZX YURI HOY .Facility:O6Slqxk: 07-27-2022 End: 05-97-0750kglmgyskvjYE YURI HOY .Facility:D2Fsiqf: 06-29-2022 End: 03-33-1698mjmjokjfacPF YURI HOY .Facility:H0Jvtjy: 06-16-2022 End: 57-79-9886Qqomzrjfyt and management of inpatientDR YURI HOY .Facility:H1 Start: 06-07-2022 End: 51-54-2738cogcavavdoDC YURI HOY .Facility:U4Rwlni: 05-26-2022 End: 39-34-5204amoxcxdgdbFI YURI HOY .Facility:W2Lvzlz: 05-17-2022 End: 40-51-6614tsxehuwkkwDL YURI HOY .Facility:E0Tguzo: 05-03-2022 End: 69-23-2211jweqklxtfpRC YURI HOY .Facility:K1Bmmip: 04-28-2022 End: 14-00-9845ianfbwapriSW YURI HOY .Facility:T4Jhdwv: 04-28-2022 End: 80-44-2187oqjrhpjajhGJ YURI HOY .Facility:M0Pnuti: 04-12-2022 End: 47-91-0859oyvuxcuddgGqtu Bakhous Other [place] [employer] Other Start: 87-64-0066Gwrcli outpatient visit 25 minutes [facility] Nephrology ClydeStart: 25-35-0077jmiblxbprxDO YURI HOY . Facility:Z4Jzquw: 03-31-2022 End: 60-20-3063rkpjsggmahEX YURI HOY .Facility:U1Ngiia: 03-03-2022 End: 34-96-5565jiyprflfmyBS YUIR HOY .Facility:F3Cwvjv: 01-27-2022 End: 24-40-8761xlsnndiwwpSM YURI HOY .Facility:W6Hqivx: 01-27-2022 End: 52-68-0640otsqwrknphXH YURI HOY .Facility:Q0Tjxfu: 01-19-2022 End: 01-59-8937ayzbgltickAYZSM SCHROFroedtert West Bend Hospitalcility:E5Egljx: 01-11-2022 End: 69-39-2462lfypmcpfogKO YURI HOY .Facility:O2Fniki: 01-10-2022 End: 66-56-5507zkerwolfkrBkimf Fabiolacility:[facility]tart: 01-06-2022 End: 79-79-6059rkzarmpbwdHG YURI HOY .Facility:C6Tuxtv: 12-30-2021 End: 46-63-6461sihnqtwdufEJ YURI HOY .Facility:P5Uwxjo: 12-23-2021 End: 34-33-0753kjduqtccodJVAW DEJESUS .Facility:A1Ctovt: 12-07-2021 End: 06-24-4704ajqgwbcledBX YURI HOY .Facility:C6Rzrxa: 12-07-2021 End: 89-10-8129mnhrthakflSJ YURI HOY .Facility:Z6Ewtyp: 08-19-2021 End: 37-53-1310cgrzsbnikpRUEFJ Deepak SOHNFacility:[facility]ENTERtart: 06-16-2021 End: 52-48-6979dofqglluvdJpczt Elashi Other [place] [employer] Other Start: 17-76-9825Dxnjfn outpatient visit 25 minutes [facility] Kaitlynn NephrologyStart: 01-14-2019 End: 26-63-8413Ygzbydc encounter procedureKindred Healthcare Start: 12-03-2018 End: 52-22-5159Jgerkuj encounter [facility] Procedures DateProcedureProcedure DetailPerforming ClinicianStart: 76-23-8383CJ of head without contrastMD Yuri Hoy Work Phone: Start: 70-60-2069Jevdu chest X-rayMD Yuri Hoy Work Phone: [phone]: 84-19-1201Iptgjshed of implantable venous access portMichael NILL Start: 07-25-2060FQZLPCUVJ PATIENTWADE art: 78-71-7979VPHY NPO, NOWNIRMAL art: 50-87-8340DHMZ CODEWADE art: 74-79-4487IRXLSMON OXYGEN THERAPY PROTOCOLWA: 73-03-5766SMEDVR PHYSICIAN (SPECIFY)NIRMAL art: 00-85-5983AAMXEQX COMMUNICATIONWADE Start: 19-62-5604SKFELY INFORMED CONSENTWADE : 35-33-0711NQTTS SIGNS : 92-51-7421AJVPQOEEY PATIENTWADE : 79-78-5020YPUS NPO, NOWWACA : 24-82-3452EVAR CODEDE : 48-72-7398CAYDOBZG OXYGEN THERAPY PROTOCOLWA: 31-29-5394POCASI PHYSICIAN (SPECIFY)NIRMAL : 42-58-3998IZBEFJO COMMUNICATIONWADE : 87-15-9063YRZZVQ INFORMED CONSENTWADE : 63-48-4257FROJW SIGNSWA: 67-77-6456Dnuqzqlow of implantable venous access portMichael NILL Start: 48-23-7907Nthz-en-Y - action (qualifier value) Migel NILL Arthroplasty of kneeMichael NILL Cardiac catheterizationMichael NILL Cervical arthrodesisMichael NILL Cervical laminectomyMichael NILL CholecystectomyMichael NILL Removal of implantable venous access portMichael NILL Repair of musculotendinous cuff of shoulderMichael NILL Plan of Treatment DateCare ActivityDetailAuthorStart: 01-28-8917YribsltqgDayton Osteopathic Hospital Start: 28-73-7515Eujkguob admissionMarietta Memorial Hospitaltart: 83-13-9425Ljfhdmcc to nephrologistDayton Osteopathic HospitalBlood chemistryDayton Osteopathic HospitalPatient EducationAdena [facility] Work Phone: Patient referralAdena [facility] Work Phone: Renal function 1999 panel - Serum or PlasmaDayton Osteopathic HospitalRenal function 1999 panel - Serum or PlasmaDayton Osteopathic HospitalRenal function 1999 panel - [facility] or [facility] Immunizations Immunization DateImmunizationNotesCare TtwckjjySjiflgse62-49-0270tzjdbrcoi virus vaccine, unspecified formulationMichael NILL [phone]-PjglcDetwiler Memorial Hospital 97-95-6001NATP-CoV-2 (COVID-19) mRNAMUL.ORD!f84416Jxxiogm NILL [phone]-OlnloDetwiler Memorial Hospital 95-48-4496PRXF-CoV-2 (COVID-19) mRNA-1273 vaccineMichael NILL [phone]-DucalDetwiler Memorial Hospital Comment on above:Result Comment: 2024-02-12: [id number]-PvT-6 (COVID- 19) mRNA-1273 vaccineMichael NILL [phone]-CtahxDetwiler Memorial Hospital 60-10-7435cgpprhemlbkt conjugate vaccine, 13 valentMichael NILL [phone]-HggckMemorial Hospital BellevueNEGATED: Highlighted row has not occurred!71-73-3516pprtkychl virus vaccine, unspecified formulationMichael NILL [phone]-FdimaMemorial Hospital Sophie Payers DatePayer CategoryPayerPolicy [id number] [id number]-dui [id number] 2018Unknown [id number] 2.16.840.1.188169.3.579.2. [id number] 2.16.840.1.804582.3.57[id number] 2.16.840.1.473944.3.57[id number] 2.16840.1.914488.3.57[id number] 2.16840.1.794121.3.57[id number] 2.840.1.423024.3.57[id number] 2.840.1.451782.3.57[id number] 2.840.1.403240.3.579.2.[id number] 2..840.1.027669.3.57[id number] 2.16.840.1.918779.3.57[id number] 2.16840.1.000733.3.57[id number] 2.16840.1.773168.3.57[id number] 2.16.840.1.514958.3.57[id number] 2.16.840.1.650491.3.57[id number] 2.16840.1.914041.3.579.2.43949-00-5254Yqnttor4440532 2.16.840.1.000211.3.57[id number] 2.16.840.1.312607.3.579.[id number] 2.16.840.1.056711.3.57[id number] 2.16.840.1.963497.3.579.[id number] 2.16.840.1.169670.3.579.2.31175-19-4688Beqfxga0638870 2.16.840.1.326211.3.579.2.64734-54-6788Grajyjg8029263 2.16840.1.505794.3.579.2.12483-83-1792Smqpjjr4346911 2.16.840.1.602253.3.579.2.39526-18-7633Agzskwf2845440 2.16.840.1.652278.3.579.2.11556-38-0254Ludsvbl8811318 2.16.840.1.824987.3.579.2.32999-02-7557Jcdtprh0945288 2.16.840.1.821537.3.579.2.48664-62-5717Pbhibwv9766790 2.16.840.1.066516.3.579.2.15163-45-8449Vizseac6738418 2.16.840.1.437206.3.579.2.06021-37-4329Amqlijc6634208 2.16.840.1.300552.3.579.2.30724-65-9996Qekxnih1120809 2.16.840.1.647877.3.579.2.18834-72-8397Rimhkpt4391989 2.16.840.1.367484.3.579.2.25124-33-9228Vkvhxtd2179499 2.16.840.1.904640.3.579.2.78170-87-1812Lylgbau1542737 2.16840.1.445173.3.579.2.02613-76-7393Kvcxaxk4207718 2.16840.1.404102.3.579.2.96344-02-5321Qfsrdtm2294835 2.840.1.484869.3.579.2.34406-26-4862Mjpiman1339220 2.840.1.571631.3.579.2.55427-07-1918Rgzpthl0720822 2.840.1.413298.3.579.2.40916-99-1234Hmqawkf1613717 2.840.1.754640.3.579.2.09706-55-6687Bonrudn7176942 2.840.1.797802.3.579.2.57352-33-4803Aassnrd0990441 2.840.1.290886.3.579.2.71243-16-3903Dartzxx4462511 2.840.1.137333.3.579.2.76916-03-3317Vnrbpqf4222587 2.16840.1.961069.3.579.2.36427-74-4064Dtpziyc4431015 2.16840.1.332350.3.579.2.77686-51-7305Wdqcsid3354832 2.16840.1.260093.3.579.2.57055-35-9069Utnhcia7327381 2.16840.1.998415.3.579.2.90233-57-4034Njkrlvi2593686 2.16840.1.053798.3.579.2.43626-56-9170Babivxy4439721 2.16840.1.121867.3.579.2.83733-00-9145Jepxuav4888605 2.840.1.947790.3.579.2.87526-06-2100Tguusdw1413505 2.840.1.550997.3.579.2.49595-97-7206Nqwgofk8495829 2.840.1.793460.3.579.2.56219-62-9813Iotdgte18949550 2.840.1.759558.3.579.2.985778-92-4047Qkjchcr32610606 2.840.1.538149.3.579.2.97292-63-6536Sprqthj448372592 2.840.1.164823.3.579.2.02701-31-3740Pxthkyf589877342 2.840.1.466647.3.579.2.24213-38-8545Yieitdj61210604 2.840.1.844271.3.579.2.628308-13-4065Qlxolqh95109351 2.840.1.255434.3.579.2.913322-93-5016Ywftqdn59229574 2.840.1.848542.3.579.2.752849-87-7578Ujpawij69616506 2.840.1.763715.3.579.2.399477-80-3533Tbnqqio530314816 2.840.1.248379.3.579.2.58777-41-8651Waqvpcz959906108 2..840.1.995134.3.579.2.09195-78-3673Bqbjwwu444782561 2.16.840.1.456457.3.579.2.196 [id number] 2.16.840.1.561646.19UnknownAnthem /[id number] 2r660w43-g3v3-3l6f-g35c-148646y7z37pJvalaoj24413595 2.840.1.251388.3.579.2.800Pvbjsft89467197 2.0.1.730387.3.579.2.531 Social History DateTypeDetailFacilityUnknown if ever smokedNort InVivioLink Other Sex Assigned At [facility] Start: 10-28-2022 End: 27-87-4795Qnvcurw smoking status NHISNever smoked tobacco (finding) [facility]: [id number] Assigned At [facility] HospitalTobacco smoking statusNeProtestant Hospitaltart: 88-56-3792GziJkrpzn (finding)[facility] Goals DatePatient GoalDesired Activity/State Functional Status HfelShdttvdttwKcfkfxAlcoteda45-20-5754Qaacdkgpdk StatusN/AFC[facility]01-08-2024Functional statusPatient at [facility] Work Phone: Mental Status WlwgJqcfkwmvnpQghxkmNiyqrebd62-53-9259Lopbfcaqt functionCognitive Status [facility] Work Phone: Clinical Notes 06-16-2021 to 04-28-2025 Note Date & [id number] NoteUT Cardiology - [facility] Subjective Mabel Moser is a 65 y.o. year old female patient being seen for 6 month follow up. Patient states she is having Left shoulder replacement surgery at [facility] May 28. Dr. Reza Patient [...] past she was admitted to [facility] in 2019 with fluid overload and [...] work showed acute re (more content not included)...[facility]10-14-2025 Note Attestation signed by Carlos [...] retention including worsening edema and weight gain posrhiqhhs-ewdrkyjmzcdde-gfqs 50-325-40 mg tablet 1 tablet, oral butorphanol [...] times daily ergocalciferol (Vitamin D-2) 1.25 MG (59269 Units) capsule 1 capsule escitalopram (Lexapro) 20 [...] cyst formation with (more content not included)... [facility]04-18-2025 NoteUT Cardiology - [facility] Subjective Mabel Moser is a 64 y.o. year old female patient being seen for 6 month follow up . Patient states she saw the Broiler Supervisor last week and he took her off [...] C heart failure with preserved ejection fraction ([facility]/HCC) H/O gastric bypass Gouty arthropathy Gastroesophageal [...] cerebral infarction (CMS/HCC) Chronic congestive heart failure ([facility]/HCC) Fall at home, initial encounter Irritable [...] past she was admitted to [facility] in 2019 with fluid overload and [...] pressures and her blood (more content not included)...[facility]03-17-2025 Note Orthopedic Surgery Visit Description: [...] Anxiety Arthritis Asthma CHF (congestive heart failure) ([facility]) Coronary artery disease Depression Gastroenteritis Heart valve disease Hypertension Kidney failure Lumbar spondylolysis Stroke (CMS/[facility]) Objective General: BMI 41.34 General: [...] satisfaction. Pepito Almeida MD Orthopedic Surgery, PGY-5 [facility] Pager: [phone] 09/09/24 This note was created with the [...] may be an additional personal documentation from me.[facility]09-10-2024 NoteGeneral Surgery Office/Clinic Note Chief [...] tab(s), Oral, BID butorphanol 10 mg/mL Nasal Combs, 1 spray(s), Nasal, Daily, PRN cyanocobalamin 1000 [...] Oral, BID Fioricet or (more content not included)...[facility]Comment [facility]:Result Comment: Electronically Signed By: FAYE ASCENCIO, Migel Cruz\Date and Time Signed: 03/05/24 14:27 [id number] Progress note Author Raeann [facility] July 03, 2023 12:18pmNote Date/TimeJan2023 12:18pm[place] [address] Nephrology Progress Note Signed Patient: Mabel Moser MR#: [id number] : 1960 Acct:[id number] Age/Sex: 63 / F Adm Date: 4 Loc: Room: [address] [place] [address] Type: ADM IN Attending Dr: Jim Randhawa [...] PO QHS [facility] Stop: 06/29/24 21:59 Last Admin: 07/02/23 21:00 Dose: 150 mg Aripiprazole (Aripiprazole 2 Mg Tablet) 2 mg PO DAILY [facility] Stop: 06/29/24 08:59 Last Admin: 07/03/23 08:13 Dose: 2 mg Bisacodyl (Bisacodyl 5 Mg Tablet.) 10 mg PO DAILY PRN PRN Reason: Constipation Stop: 06/28/24 21:34 Bumetanide (Bumetanide 1 Mg/4 Ml Vial) 1 mg IV-PUSH BID@0800,1600 [facility] Stop: 06/29/24 07:59 Last Admin: 07/03/23 08:14 Dose: 1 mg Calcium Acetate (Calcium Acetate 667 Mg Capsule) 667 mg PO BID.WITH.MEALS [facility] Stop: 06/29/24 07:59 Last Admin: 07/03/23 08:13 Dose: 667 mg Duloxetine HCl (Duloxetine 60 Mg Capsule.) 120 mg PO DAILY [facility] Stop: 06/29/24 08:59 Last Admin: 07/03/23 08:13 Dose: 120 mg Fentanyl (Fentanyl Patch 100 Mcg/Hour Patch.Td72) 100 mcg TRANSDERML Q72H [facility]; Protocol Last Admin: 07/03/23 08:12 Dose: 100 mcg Ferrous Sulfate (Ferrous Sulfate 324 Mg Tablet.) 324 mg PO DAILY [facility] Stop: 06/29/24 08:59 Last Admin: 07/03/23 08:13 Dose: 324 mg Gabapentin (Gabapentin 100 Mg Capsule) 100 mg PO TID [facility] Stop: 06/29/24 08:59 Last Admin: 07/03/23 08:13 Dose: 100 mg Guaifenesin/Dextromethorphan (Guaif/Dextromethorphan Syrup 10 Ml Udc) 10 ml PO Q8H PRN PRN Reason: Cough Stop: 06/28/24 21:34 Heparin Sodium (Porcine) (Heparin 5,000 Unit/Ml Vial) 5,000 unit SUBCUT Q12HR [facility] Stop: 06/29/24 08:59 Last Admin: 07/03/23 08:14 Dose: 5,000 unit Levothyroxine Sodium (Levothyroxine 100 Mcg Tablet) 100 mcg PO DAILY@0630 [facility] Stop: 06/29/24 06:29 Last Admin: 07/03/23 06:23 Dose: 100 mcg Linaclotide (Linaclotide 290 Mcg Capsule) 290 mcg PO Q48HR [facility] Stop: 06/29/24 08:59 Last Admin: 07/02/23 08:59 Dose: 290 mcg Liothyronine Sodium (Liothyronine 25 Mcg Tablet) 25 mcg PO DAILY@0630 [facility] Stop: 06/29/24 10:59 Last Admin: 07/03/23 06:23 Dose: 25 mcg Loratadine (Loratadine 10 Mg Tablet) 10 mg PO DAILY PRN PRN Reason: Allergy Symptoms Stop: 06/29/24 06:54 Melatonin (Melatonin 5 Mg Tablet) 5 mg PO QHS PRN PRN Reason: Insomnia Stop: 06/28/24 21:34 Metoprolol Tartrate (Metoprolol Tartrate 25 Mg Tablet) 25 mg PO BID [facility] Stop: 06/29/24 20:59 Last Admin: 07/03/23 08:14 Dose: 25 mg Ondansetron HCl (Ondansetron 4 Mg/2 Ml Vial) 4 mg IV-PUSH Q8H PRN PRN Reason: Nausea And Vomiting Stop: 06/28/24 21:34 Oxycodone/Acetaminophen (Oxycodone/Acetaminophen 5-325 Mg Tablet) 2 tab PO Q6H PRN PRN Reason: Pain Last Admin: 07/03/23 11:25 Dose: 2 tab Pantoprazole Sodium (Pantoprazole 40 Mg Tablet.Dr) 40 mg PO BID [facility] Stop: 06/29/24 08:59 Last Admin: 07/03/23 08:13 Dose: 40 mg Primidone (Primidone 50 Mg Tablet) 100 mg PO HS [facility] Stop: 06/29/24 21:59 Last Admin: 07/02/23 21:00 Dose: 100 mg Sevelamer Carbonate (Sevelamer Carbonate 800 Mg Tablet) 800 mg PO TID.WITH.MEALS [facility] Stop: 06/29/24 11:59 Last Admin: [...] signed by Raeann Kirkpatrick MD> 07/03/23 1218 [facility] Work Phone: 1(144) 834-327101-07-2024 Progress note Author Jim Randhawa [facility] July 02, 2023 11:26amNote Date/TimeJan2023 11:26am[place] [address] Hospitalist Progress Note Signed Patient: Mabel Moser MR#: [id number] : 1960 Acct:[id number] Age/Sex: 63 / F Adm Date: 4 Loc: Room: [address] [place] [address] Type: ADM IN Attending Dr: Jim Randhawa [...] <Electronically signed by Jim Randhawa DO> 07/02/23 [facility] Work Phone: 1(385) 882-482201-07-2024 Progress note Author [facility] July 02, 2023 10:42amNote Date/TimeJan2023 10:42am[place] [address] Nephrology Progress Note Signed Patient: Mabel Moser MR#: [id number] : 1960 Acct:[id number] Age/Sex: 63 / F Adm Date: 4 Loc: Room: [address] [place] [address] Type: ADM IN Attending Dr: Jim Randhawa [...] PO QHS [facility] Stop: 06/29/24 21:59 Last Admin: 07/01/23 21:21 Dose: 150 mg Aripiprazole (Aripiprazole 2 Mg Tablet) 2 mg PO DAILY [facility] Stop: 06/29/24 08:59 Last Admin: 07/02/23 08:55 Dose: 2 mg Bisacodyl (Bisacodyl 5 Mg Tablet.) 10 mg PO DAILY PRN PRN Reason: Constipation Stop: 06/28/24 21:34 Bumetanide (Bumetanide 1 Mg/4 Ml Vial) 1 mg IV-PUSH BID@0800,1600 [facility] Stop: 06/29/24 07:59 Last Admin: 07/02/23 08:55 Dose: 1 mg Calcium Acetate (Calcium Acetate 667 Mg Capsule) 667 mg PO BID.WITH.MEALS [facility] Stop: 06/29/24 07:59 Last Admin: 07/02/23 08:55 Dose: 667 mg Duloxetine HCl (Duloxetine 60 Mg Capsule.) 120 mg PO DAILY [facility] Stop: 06/29/24 08:59 Last Admin: 07/02/23 08:59 Dose: 120 mg Fentanyl (Fentanyl Patch 100 Mcg/Hour Patch.Td72) 100 mcg TRANSDERML Q72H [facility]; Protocol Last Admin: 06/30/23 09:31 Dose: 100 mcg Ferrous Sulfate (Ferrous Sulfate 324 Mg Tablet.) 324 mg PO DAILY [facility] Stop: 06/29/24 08:59 Last Admin: 07/02/23 08:55 Dose: 324 mg Gabapentin (Gabapentin 100 Mg Capsule) 100 mg PO TID [facility] Stop: 06/29/24 08:59 Last Admin: 07/02/23 08:55 Dose: 100 mg Guaifenesin/Dextromethorphan (Guaif/Dextromethorphan Syrup 10 Ml Udc) 10 ml PO Q8H PRN PRN Reason: Cough Stop: 06/28/24 21:34 Heparin Sodium (Porcine) (Heparin 5,000 Unit/Ml Vial) 5,000 unit SUBCUT Q12HR [facility] Stop: 06/29/24 08:59 Last Admin: 07/02/23 08:55 Dose: 5,000 unit Levothyroxine Sodium (Levothyroxine 100 Mcg Tablet) 100 mcg PO DAILY@0630 [facility] Stop: 06/29/24 06:29 Last Admin: 07/02/23 05:48 Dose: 100 mcg Linaclotide (Linaclotide 290 Mcg Capsule) 290 mcg PO Q48HR [facility] Stop: 06/29/24 08:59 Last Admin: 07/02/23 08:59 Dose: 290 mcg Liothyronine Sodium (Liothyronine 25 Mcg Tablet) 25 mcg PO DAILY@0630 [facility] Stop: 06/29/24 10:59 Last Admin: 07/02/23 05:48 Dose: 25 mcg Loratadine (Loratadine 10 Mg Tablet) 10 mg PO DAILY PRN PRN Reason: Allergy Symptoms Stop: 06/29/24 06:54 Melatonin (Melatonin 5 Mg Tablet) 5 mg PO QHS PRN PRN Reason: Insomnia Stop: 06/28/24 21:34 Metoprolol Tartrate (Metoprolol Tartrate 25 Mg Tablet) 25 mg PO BID [facility] Stop: 06/29/24 20:59 Last Admin: [...] signed by MD Los Grissom> 07/02/23 1042 [facility] Work Phone: 1(888) 919-710801-06-2024 Progress note Author Jim Randhawa [facility] July 01, 2023 1:52pmNote Date/TimeJan2023 1:37pm[place] [address] Hospitalist Progress Note Signed Patient: Mabel Moser MR#: [id number] : 1960 Acct:[id number] Age/Sex: 63 / F Adm Date: 4 Loc: Room: [address] [place] [address] Type: ADM IN Attending Dr: Jim Randhawa [...] signed by Jim Randhawa DO> 07/01/23 1352 [facility] Work Phone: 1(359) 672-453301-06-2024 Progress note Author [facility] July 01, 2023 10:16amNote Date/TimeJan2023 10:16[place] [address] Nephrology Progress Note Signed Patient: Mabel Moser MR#: [id number] : 1960 Acct:[id number] Age/Sex: 63 / F Adm Date: 4 Loc: Room: [address] [place] [address] Type: ADM IN Attending Dr: Jim Randhawa [...] PO QHS [facility] Stop: 06/29/24 21:59 Last Admin: 06/30/23 21:17 Dose: 150 mg Aripiprazole (Aripiprazole 2 Mg Tablet) 2 mg PO DAILY [facility] Stop: 06/29/24 08:59 Last Admin: 07/01/23 08:21 Dose: 2 mg Bisacodyl (Bisacodyl 5 Mg Tablet.) 10 mg PO DAILY PRN PRN Reason: Constipation Stop: 06/28/24 21:34 Bumetanide (Bumetanide 1 Mg/4 Ml Vial) 1 mg IV-PUSH BID@0800,1600 [facility] Stop: 06/29/24 07:59 Last Admin: 07/01/23 08:21 Dose: 1 mg Calcium Acetate (Calcium Acetate 667 Mg Capsule) 667 mg PO BID.WITH.MEALS [facility] Stop: 06/29/24 07:59 Last Admin: 07/01/23 08:20 Dose: 667 mg Duloxetine HCl (Duloxetine 60 Mg Capsule.) 120 mg PO DAILY [facility] Stop: 06/29/24 08:59 Last Admin: 07/01/23 08:20 Dose: 120 mg Fentanyl (Fentanyl Patch 100 Mcg/Hour Patch.Td72) 100 mcg TRANSDERML Q72H [facility]; Protocol Last Admin: 06/30/23 09:31 Dose: 100 mcg Ferrous Sulfate (Ferrous Sulfate 324 Mg Tablet.) 324 mg PO DAILY [facility] Stop: 06/29/24 08:59 Last Admin: 07/01/23 08:20 Dose: 324 mg Gabapentin (Gabapentin 100 Mg Capsule) 100 mg PO TID [facility] Stop: 06/29/24 08:59 Last Admin: 07/01/23 08:20 Dose: 100 mg Guaifenesin/Dextromethorphan (Guaif/Dextromethorphan Syrup 10 Ml Udc) 10 ml PO Q8H PRN PRN Reason: Cough Stop: 06/28/24 21:34 Heparin Sodium (Porcine) (Heparin 5,000 Unit/Ml Vial) 5,000 unit SUBCUT Q12HR [facility] Stop: 06/29/24 08:59 Last Admin: 07/01/23 08:21 Dose: 5,000 unit Levothyroxine Sodium (Levothyroxine 100 Mcg Tablet) 100 mcg PO DAILY@30 [facility] Stop: 06/29/24 06:29 Last Admin: 07/01/23 05:46 Dose: 100 mcg Linaclotide (Linaclotide 290 Mcg Capsule) 290 mcg PO Q48HR [facility] Stop: 06/29/24 08:59 Last Admin: 06/30/23 09:33 Dose: 290 mcg Liothyronine Sodium (Liothyronine 25 Mcg Tablet) 25 mcg PO DAILY@30 [facility] Stop: 06/29/24 10:59 Last Admin: 07/01/23 05:46 Dose: 25 mcg Loratadine (Loratadine 10 Mg Tablet) 10 mg PO DAILY PRN PRN Reason: Allergy Symptoms Stop: 06/29/24 06:54 Melatonin (Melatonin 5 Mg Tablet) 5 mg PO QHS PRN PRN Reason: Insomnia Stop: 06/28/24 21:34 Metoprolol Tartrate (Metoprolol Tartrate 25 Mg Tablet) 25 mg PO BID [facility] Stop: 06/29/24 20:59 Last Admin: 07/01/23 08:20 Dose: 25 mg Ondansetron HCl (Ondansetron 4 Mg/2 Ml Vial) 4 mg IV-PUSH Q8H PRN PRN Reason: Nausea And Vomiting Stop: 06/28/24 21:34 Oxycodone/Acetaminophen (Oxycodone/Acetaminophen 5-325 Mg Tablet) 2 tab PO Q6H PRN PRN Reason: Pain Last Admin: 07/01/23 03:35 Dose: 2 tab Pantoprazole Sodium (Pantoprazole 40 Mg Tablet.Dr) 40 mg PO BID [facility] Stop: 06/29/24 08:59 Last Admin: 07/01/23 08:21 Dose: 40 mg Primidone (Primidone 50 Mg Tablet) 100 mg PO HS [facility] Stop: 06/29/24 21:59 Last Admin: 06/30/23 21:17 Dose: 100 mg Sevelamer Carbonate (Sevelamer Carbonate 800 Mg Tablet) 800 mg PO TID.WITH.MEALS [facility] Stop: 06/29/24 11:59 Last Admin: [...] signed by MD Los Grissom> 07/01/23 1016 [facility] Work Phone: 1(990) 995-624901-05-2024 Progress note Author Jim Randhawa [facility] June 30, 2023 1:13pmNote Date/TimeJan2023 1:13pm[place] [address] Hospitalist Progress Note Signed Patient: Mabel Moser MR#: [id number] : 1960 Acct:[id number] Age/Sex: 63 / F Adm Date: 4 Loc: Room: [address] [place] [address] Type: ADM IN Attending Dr: Jim Randhawa [...] 25 Mg Tablet PO 06/29/24 20:59 BID [facility] Ondansetron HCl 4 mg 06/29/23 [...] signed by Jim Randhawa DO> 06/30/23 1313 [facility] Work Phone: 1(652) 176-654601-05-2024 Consult note Author [facility] June 30, 2023 10:45amNote Date/TimeJan2023 10:26[place] [id number] Nephrology Consult Note Signed Patient: Mabel Moser MR#: [id number] : 1960 Acct:[id number] Age/Sex: 63 / F Adm Date: 4 Loc: Room: [address] [place] [address] Type: ADM IN Attending Dr: Jim Randhawa [...] PO DAILY [facility] Stop: 06/29/24 08:59 Last Admin: 06/30/23 09:30 Dose: 2 mg Bisacodyl (Bisacodyl 5 Mg Tablet.) 10 mg PO DAILY PRN PRN Reason: Constipation Stop: 06/28/24 21:34 Bumetanide (Bumetanide 1 Mg/4 Ml Vial) 1 mg IV-PUSH BID@0800,1600 [facility] Stop: 06/29/24 07:59 Last Admin: 06/30/23 09:31 Dose: 1 mg Calcium Acetate (Calcium Acetate 667 Mg Capsule) 667 mg PO BID.WITH.MEALS [facility] Stop: 06/29/24 07:59 Last Admin: 06/30/23 09:30 Dose: 667 mg Duloxetine HCl (Duloxetine 60 Mg Capsule.) 120 mg PO DAILY [facility] Stop: 06/29/24 08:59 Last Admin: 06/30/23 09:30 Dose: 120 mg Escitalopram Oxalate (Escitalopram 20 Mg Tablet) 20 mg PO DAILY [facility] Stop: 06/29/24 08:59 Last Admin: 06/30/23 09:31 Dose: 20 mg Fentanyl (Fentanyl Patch 100 Mcg/Hour Patch.Td72) 100 mcg TRANSDERML Q72H [facility]; Protocol Last Admin: 06/30/23 09:31 Dose: 100 mcg Ferrous Sulfate (Ferrous Sulfate 324 Mg Tablet.) 324 mg PO DAILY [facility] Stop: 06/29/24 08:59 Last Admin: 06/30/23 09:31 Dose: 324 mg Gabapentin (Gabapentin 100 Mg Capsule) 100 mg PO TID [facility] Stop: 06/29/24 08:59 Last Admin: 06/30/23 09:31 Dose: 100 mg Guaifenesin/Dextromethorphan (Guaif/Dextromethorphan Syrup 10 Ml Udc) 10 ml PO Q8H PRN PRN Reason: Cough Stop: 06/28/24 21:34 Heparin Sodium (Porcine) (Heparin 5,000 Unit/Ml Vial) 5,000 unit SUBCUT Q12HR [facility] Stop: 06/29/24 08:59 Last Admin: 06/30/23 09:32 Dose: 5,000 unit Levothyroxine Sodium (Levothyroxine 100 Mcg Tablet) 100 mcg PO DAILY@0630 [facility] Stop: 06/29/24 06:29 Last Admin: 06/30/23 05:55 Dose: 100 mcg Linaclotide (Linaclotide 290 Mcg Capsule) 290 mcg PO Q48HR [facility] Stop: 06/29/24 08:59 Last Admin: [...] PO BID [facility] Stop: 06/29/24 08:59 Last Admin: 06/30/23 09:31 Dose: 40 mg Primidone (Primidone 50 Mg Tablet) 100 mg PO HS [facility] Stop: 06/29/24 21:59 Sevelamer Carbonate (Sevelamer Carbonate 800 Mg Tablet) 800 mg PO TID [facility] Stop: 06/29/24 08:59 Tizanidine HCl [...] signed by MD Los Grissom> 06/30/23 1049 [facility] Work Phone: 1(914) 264-878901-04-2024 History and physical note Author Beatriz Oh [facility] June 29, 2023 9:51pmNote Date/TimeJan2023 9:47pm[place] [address] Hospitalist H&P Signed Patient: Mabel Moser MR#: [id number] : 1960 Acct:[id number] Age/Sex: 63 / F Adm Date: 4 Loc: Room: [address] [place] [address] Type: ADM IN Attending Dr: Papito Garces [...] HOSPITAL Medical History CAD (coronary artery disease) Grady filter in place Hypertension Surgical History History [...] mg PO BID 08/31/18 [History Confirmed 10/28/22] tgekxdxi-ahtlkmw-pjkf-iron fum 18 mg-folic 600 mcg-vit K 80 [...] TID PRN Edema 10/28/22 [History Confirmed 10/28/22] kgslnmxsqt-rmlbrsyfwntxj-ujykrmjs 50 mg-325 mg-40 mg capsule 1 cap [...] 3 Documented By: Beatriz Oh MD 06/29/23 4072 Signed By: <Electronically signed by Beatriz Oh MD> 06/29/23 2150 [facility] Work Phone: 1(577) 801-388210-10-2023 Evaluation note* Encounter Date Diagnosis Assessment Notes [...] - G43.519)Advised the patient to follow with [facility] neurology clinic Mar,hronic kidney disease, stage [...] Mar,Hyperphosphatemia (ICD-10 - E83.39)Continue Phos[employer] with meals [employer] Other 04-04-2023 Evaluation note* Encounter Date Diagnosis [...] - G43.519)Advised the patient to follow with [facility] neurology clinic [facility] [employer] Other 03-28-[address] [id number] Evaluation note* Encounter Date Diagnosis Assessment Notes Treatment Notes Treatment Clinical Notes Jul, Contusion of right wrist, initia l encounter (ICD-10 - S60.211A) Patient placed in cock up wrist splint. Activities 2-5 lbs ADLs [employer] Other 12-13-[address] [facility] [id number] [facility] [id number] [facility] [id number] Evaluation note * Encounter Date Diagnosis Assessment [...] blood pressure. Advised the patient to follow-upwith [facility] I will try to reach to Dr. Santana's office about fludrocortisone I would continue same blood pressure medications. Advised the patient to follow a low-salt diet andto monitor her blood pressure at home Mar,Migraine aura, persistent, intractable (ICD-10 - G43.519)Advised the patient to follow with [facility] neurology clinic [employer] Other 08-04-[address] [facility] [id number] [facility] HospitalVsgrcfxz21-42-0583 Evaluation note* Encounter Date Diagnosis Assessment Notes [...] off all diuretics metolazone, spironolactone and bumetanide. [employer] Other Discharge summary Author Jim Randhawa [facility] July 03, 2023 3:03pmNote Date/TimeJan2023 2:55pmSherri Ville [id number] Discharge Summary Signed Patient: Mabel Moser MR#: [id number] : 1960 Acct:[id number] Age/Sex: 63 / F Adm Date: 4 Loc: Room: [address] [place] [address]: Jim Randhawa DO Copies to: [...] signed by Jim Randhawa DO> 07/03/23 1503 [facility] Work Phone: Evaluation + Plan note No data available for this section [facility] General Surgery [place] Evaluation noteNo assessment information available [facility] Work Phone: Evaluxwnbs noteNo InformationNort InVivioLink Other Evalupqbzu note* Diagnosis Onset Date Resolution Status Acute heart failure acuteAKI (acute kidney injury)acuteAnemiachronicCKD (chronic kidney disease) stage 3, GFR 30-59 ml/minchronicHypertensionchronic [facility] Work Phone: Evaluation note* Diagnosis Onset Date Resolution Status CHF (congestive heart failure) acuteChronic kidney disease, stage 3bacuteFluid overloadacuteHyperkalemiaacute Secondary hyperparathyroidismacuteVitamin D deficiencyacuteAnemiachronic Hyponatremiachronic [facility] Work Phone: Evaluation note* Diagnosis Onset Date Resolution Status Admit Date CHF (congestive heart failure) acuteApril 2024 2:44pmChronic kidney disease, stage 3bacuteApril 2024 2:44pmFluid overloadacuteApril 2024 2:44pmHyperkalemiaacuteApril 2024 2:44pmSecondary hyperparathyroidismacuteApril 2024 2:44pmVitamin D deficiencyacuteApril 2024 2:44pmAnemiachronicApril 2024 2:44pm HyponatremiachronicApril 2024 2:44pm [facility] Work Phone: Evaluation note* Diagnosis Onset Date Resolution Status Admit Date CHF (congestive heart failure) acuteJuly 2024 11:05amChronic kidney disease, stage 3bacuteJuly 2024 11:05amFluid overloadacuteJuly 2024 11:05amHyperkalemiaacuteJuly 2024 11:05amSecondary hyperparathyroidismacuteJuly 2024 11:05amVitamin D deficiencyacuteJuly 2024 11:05amAnemiachronicJuly 2024 11:05am HyponatremiachronicJuly 2024 11:05am [facility] Work Phone: History general Narrative - [...] History appendectomySurgical Historygastric bypassSurgical Historyknee surgerySurgical Historyback -0105Wkpsobep HistoryRight total knee replacement-2017 Surgical HistoryHEART [id number] HistorySee aboveHospitalization HistoryFLUID [id number] [id number] Hospitalization HistoryLOW SODIUM3/19Hospitalization HistoryABNORMAL LABS, BOWEL WKLZZWGDAIR44/2021Hospitalization DnlpghpXXROA18/2019Hospitalization History COVID04/2021 [employer] Other History general Narrative - Reported* [...] History appendectomySurgical Historygastric bypassSurgical Historyknee surgerySurgical Historyback -7594Yeyzofhk HistoryRight total knee replacement2-2018 Surgical HistoryHEART [id number] HistoryROTATOR CUFF [id number] Hospitalization HistorySee aboveHospitalization HistoryFLUID [id number] Hospitalization IrupzjmBPTTSFYFRMW25-6747Gdkwmohfdavuqlh HistoryLOW SODIUM3/19 Hospitalization HistoryABNORMAL LABS, BOWEL APGUPJJLSUI47/2021Hospitalization CmcuckbKIQQS21/2019Hospitalization DomwutoQGWAD41/2021 [employer] Other History general Narrative - Reported* [...] HistoryappendectomySurgical Historygastric bypass Surgical Historyknee surgerySurgical Historyback [id number] History Right total knee replacement-2017Surgical HistoryHEART [id number] HistoryROTATOR CUFF [id number] HistorySee aboveHospitalization HistoryFLUID PKGCUCUOI41-1433Ondyurxzyvzfnai OyuuynhBZNMBJKSFLU82-7658 Hospitalization HistoryLOW SODIUM09/11Hospitalization HistoryABNORMAL LABS, BOWEL YPRUCCCZGLT30/2021Hospitalization WyddyrxQNBYS86/2020Hospitalization History COVID04/2021Hospitalization HistoryELEVATED POTASSIUM LEVEL09/19/2022 [employer] Other Hospital Discharge instructions Additional Instructions Home health to manage: - PT/OT to eval and treat - Monitor VS routine - Dx. HTN - CHF assessments/education - Urinary assessments - Dx. CKD on LEEANN - Fall precautions - high fall riskDay[facility] Work Phone: Hospital Discharge instructions No data available for this section [facility] Progress note No data available for this section [facility] Reason for referral (narrative)No reason for referral information availableAshtabula General Hospital Work Phone: Summary Purpose Family History [...] section and content) DATE CREATED AUTHOR 01/14/2019 [facility] DATE CREATED AUTHOR AUTHOR'S ORGANIZ ATION 07/24/2021 [facility] DATE CREATED AUTHOR AUTHOR'S ORGANIZ ATION 01/17/2022 [facility] DATE CREATED AUTHOR AUTHOR'S ORGANIZ ATION 12/05/2022 [facility] DATE CREATED AUTHOR AUTHOR'S ORGANIZ ATION 08/04/2023 [facility] DATE CREATED AUTHOR AUTHOR'S ORGANIZ ATION 10/19/2023 [facility] DATE CREATED AUTHOR AUTHOR'S ORGANIZ ATION 03/07/2024 [facility] DATE CREATED AUTHOR AUTHOR'S ORGANIZ ATION 03/27/2024 [facility] DATE CREATED AUTHOR AUTHOR'S ORGANIZ ATION 06/05/2024 [facility] DATE CREATED AUTHOR AUTHOR'S ORGANIZ ATION 02/16/2025 [facility] DATE CREATED AUTHOR AUTHOR'S ORGANIZ ATION 04/29/2025 [facility] REASON FOR VISIT (unrecogniz ed [...] BE BASED ON THE PRIMARY CLINICAL RECORDS. [facility] provides no warranty or guarantee of the accuracy or completeness of information in this document.
== END 2025-05-27 13:46 | disposition home or self-care (01) ==
LOC: RAD 13:51
PROVIDERS: PCP Family Medicine; Visit Provider Family Medicine
DX: M25.562 Pain in left knee (principal); M17.12 Unilateral primary osteoarthritis, left knee
CPT/HCPCS: 73560

== ENCOUNTER 2025-06-10 12:12 | Outpatient (RCR) | payer MEDICARE, MEDICAID, SELFPAY ==
[2025-05-27 13:03] VITALS: BP 150/80; PULSE 89; TEMP 36.3; O2SAT 95
--- NOTE | 2025-05-27 13:05 | PC.NURSE ---
Arrival ambulatory for port draw. rt chest port accessed as documented. excellent blood return noted, labs drawn, flushed with ns and heparin lock flush. deaccessed, tolerated well.
[2025-05-27 13:06] LABS: Hematocrit 29.6 % (36.0-48.0); Hemoglobin 9.2 g/dL (12.0-16.0); Immature Granulocytes Abs Auto 0.05 10^3/uL (0.00-0.03); Immature Granulocytes Pct Auto 0.6 % (0.0-0.5); Lymphocytes Absolute Auto 1.2 10^3/uL (1.2-3.8); Mean Corpuscular HGB Conc 31.1 g/dL (29.9-35.2); Mean Corpuscular Hemoglobin 31.0 pg (26.7-34.0); Mean Corpuscular Volume 99.7 fL (81.0-99.0); Platelet Count 318 10^3/uL (150-450); Red Blood Count 2.97 10^6/uL (4.20-5.40); White Blood Count 9.0 10^3/uL (4.0-11.0)
[2025-05-27 13:24] LABS: Alanine Aminotransferase 25 U/L (14-59); Albumin Globulin Ratio 1.1; Albumin Level 3.4 g/dL (3.4-5.0); Alkaline Phosphatase 147 U/L (46-116); Anion Gap 14.0; Aspartate Amino Transferase 25 U/L (15-37); Blood Urea Nitrogen 60.0 mg/dL (7.0-18.0); Calcium 7.9 mg/dL (8.5-10.1); Carbon Dioxide 27.0 mmol/L (21.0-32.0); Chloride 102 mmol/L (98-107); Estimated GFR (African America 20 (>=60 mL/min/1.73m^2); Estimated GFR (Non-African Ame 16 (>=60 mL/min/1.73m^2); Globulin 3.1 g/dL; Glucose 97 mg/dL (74-106); Potassium 5.0 mmol/L (3.5-5.1); Sodium 138 mmol/L (136-145); Total Protein 6.5 g/dL (6.4-8.2)
[2025-05-27] MEDS: HEPARIN SODIUM (PORCINE) PF LOCK FLUSH 500 UNIT/5 ML SYRINGE IV (13:30)
[2025-05-27] MEDS: EPOETIN ALFA-EPBX 20,000 UNIT/ML VIAL 20000 UNIT SUBQ (13:34)
--- NOTE | 2025-06-10 12:41 | PC.NURSE ---
labs drawn for Dr. Godinez also has account today for Dr. Rae
[2025-06-10 12:54] VITALS: BP 143/91; PULSE 60; TEMP 36.9; O2SAT 98
[2025-06-10] MEDS: EPOETIN ALFA-EPBX 20,000 UNIT/ML VIAL 20000 UNIT SUBQ (13:12)
[2025-06-10] MEDS: HEPARIN SODIUM (PORCINE) PF LOCK FLUSH 500 UNIT/5 ML SYRINGE IV (13:22)
== END 2025-06-25 23:59 | disposition home or self-care (01) ==
LOC: HEMC 12:12
PROVIDERS: PCP Family Medicine; Visit Provider Internal Medicine Hematology & Oncology
DX: M25.562 Pain in left knee (principal); M17.12 Unilateral primary osteoarthritis, left knee; D63.1 Anemia in chronic kidney disease; D50.9 Iron deficiency anemia, unspecified; K90.9 Intestinal malabsorption, unspecified; N18.32 Chronic kidney disease, stage 3b; E87.70 Fluid overload, unspecified; E87.1 Hypo-osmolality and hyponatremia; I12.9 Hypertensive chronic kidney disease with stage 1 through stage 4 chronic kidney disease, or unspecified chronic kidney disease
CPT/HCPCS: 36591; 73560; 80053; 83930; 85025; 96372; J1642; Q5106

== ENCOUNTER 2025-06-10 12:44 | Outpatient (RCR) | payer MEDICARE, MEDICAID, SELFPAY ==
[2025-06-10 12:46] LABS: Hematocrit 32.7 % (36.0-48.0); Hemoglobin 10.0 g/dL (12.0-16.0); Immature Granulocytes Abs Auto 0.03 10^3/uL (0.00-0.03); Immature Granulocytes Pct Auto 0.5 % (0.0-0.5); Lymphocytes Absolute Auto 1.1 10^3/uL (1.2-3.8); Mean Corpuscular HGB Conc 30.6 g/dL (29.9-35.2); Mean Corpuscular Hemoglobin 31.4 pg (26.7-34.0); Mean Corpuscular Volume 102.8 fL (81.0-99.0); Platelet Count 265 10^3/uL (150-450); Red Blood Count 3.18 10^6/uL (4.20-5.40); White Blood Count 6.5 10^3/uL (4.0-11.0)
[2025-06-10 12:59] LABS: Alanine Aminotransferase 22 U/L (14-59); Albumin Globulin Ratio 1.0; Albumin Level 3.3 g/dL (3.4-5.0); Alkaline Phosphatase 128 U/L (46-116); Anion Gap 14.3; Aspartate Amino Transferase 26 U/L (15-37); Blood Urea Nitrogen 66.0 mg/dL (7.0-18.0); Calcium 8.5 mg/dL (8.5-10.1); Carbon Dioxide 26.8 mmol/L (21.0-32.0); Chloride 101 mmol/L (98-107); Estimated GFR (African America 28 (>=60 mL/min/1.73m^2); Estimated GFR (Non-African Ame 23 (>=60 mL/min/1.73m^2); Globulin 3.3 g/dL; Glucose 93 mg/dL (74-106); Potassium 5.1 mmol/L (3.5-5.1); Sodium 137 mmol/L (136-145); Total Protein 6.6 g/dL (6.4-8.2)
== END 2025-06-25 23:59 | disposition home or self-care (01) ==
LOC: INF 12:44
PROVIDERS: Internal Medicine Hematology & Oncology; PCP Family Medicine; Visit Provider Family Medicine
DX: M25.562 Pain in left knee (principal); M17.12 Unilateral primary osteoarthritis, left knee; D63.1 Anemia in chronic kidney disease; D50.9 Iron deficiency anemia, unspecified; K90.9 Intestinal malabsorption, unspecified; N18.32 Chronic kidney disease, stage 3b; E87.70 Fluid overload, unspecified; I10 Essential (primary) hypertension; E87.1 Hypo-osmolality and hyponatremia
CPT/HCPCS: 36591; 80053; 83930; 85025; 96372; J1642; Q5106